=== PATIENT | male | born 1955 | race Caucasian/White ===

== ENCOUNTER 2022-12-17 16:24 | Emergency (ER) | payer MEDICARE, OTHER, SELFPAY ==
[2022-12-17 16:29] VITALS: BP 161/91; PULSE 79; RESP 20; TEMP 36.6; O2SAT 98; BMI 28.3
--- NOTE | 2022-12-17 16:31 | ED_ITS ---
HPI - General Adult General Chief complaint: Skin/Abscess/Foreign Body Stated complaint: LACERATION, UPPER EXTREMITY Time Seen by Provider: 12/17/22 16:31 History of Present Illness HPI narrative: Patient presents to emergency department complaining of right index finger laceration. 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 He states he cannot get it stopped bleeding. Patient does not take any blood thinners. Last tetanus shot he thinks it was 7 years ago. Denies any numbness, weakness. Complains of pain with range of motion. Related Data Previous Rx's Medication Instructions Recorded cephalexin 500 mg capsule 500 mg PO TID 7 days #21 caps 12/17/22 Allergies Allergy/AdvReac Type Severity Reaction Status Date / Time Penicillins Allergy Intermediate Verified 12/17/22 16:33 vancomycin Allergy Intermediate Verified 12/17/22 16:33 TYCOSYN Allergy Intermediate Uncoded 12/17/22 16:33 Review of Systems ROS Status of ROS 10 or more systems reviewed and unremarkable except as noted in history and below Exam Narrative Exam Narrative: Nurses notes and vital signs reviewed and patient is not hypoxic. General: Nontoxic, Well-appearing and in no apparent distress. Skin: Warm, dry, no pallor noted. No Rash Head: Normocephalic, atraumatic. Eye: Pupils are equal,No scleral icterus. Ears, Nose, Mouth, and Throat: Oral mucosa is moist Cardiovascular: Regular Rate and Rhythm without murmur, gallop or rub. Respiratory: No accessory muscle use or respiratory distress. Lungs are clear to auscultation, no wheezing, rales or rhonchi Musculoskeletal: Right And next finger dorsal PIP 1.5 cm linear laceration without any pulsatile bleeding. Bony tenderness to palpation. Patient is able to flex and extend abduct and abduct and extend finger without any striction range of motion. Apley refill is brisk. Patient is able to oppose all digits with thumb. Normal sensation to the thumb, middle finger, index and pinky. no calf or popliteal tenderness, no lower extremity edema/swelling Neurological: A&O x4. No cranial nerve dysfunction observed. Moves all extremities. Psychiatric: Cooperative and interactive. Normal mood and affect. Constitutional Vital Signs, click to edit/add: Last Vital Signs Temp 98 F 12/17/22 16:29 Pulse 79 08/28/23 16:29 Resp 20 12/17/22 16:29 BP 161/91 H 12/17/22 16:29 Pulse Ox 98 12/17/22 16:29 O2 Del Method Room Air 12/17/22 16:29 Course Vital Signs Vital signs: Vital Signs Temperature 98 F 12/17/22 16:29 Pulse Rate 79 12/17/22 16:29 Respiratory Rate 20 12/17/22 16:29 Blood Pressure 161/91 H 12/17/22 16:29 Pulse Oximetry 98 12/17/22 16:29 Oxygen Delivery Method Room Air 12/17/22 16:29 Temperature 98 F 12/17/22 16:29 Pulse Rate 79 12/17/22 16:29 Respiratory Rate 20 12/17/22 16:29 Blood Pressure 161/91 H 12/17/22 16:29 Pulse Oximetry 98 12/17/22 16:29 Oxygen Delivery Method Room Air 12/17/22 16:29 Medical Decision Making MDM Narrative Medical decision making narrative: Laceration repair. The patient was identified by me. Procedure risks and benefits were discussed with patient and/or family. Area was prepped and draped in a sterile fashion. 1ml lidocaine 1% without epinephrine were injected. wound was inspected in full range of motion. Adequate anesthesia was obtained. 3 sutures, interrupted, nylon 4.0 were used to obtain adequate closure. The edges were well approximated. Antibiotic ointment was applied. Nonstick dressing was applied with pressure gauze and Shawn wrap. Care instructions provided. There was some dirt noted the wound was irrigated prior to closing no foreign body was noted. The patient will be placed on Keflex. Patient thinks his last tetanus was 7 years ago and he does not want to have his tetanus shot updated currently. Sutures out in 10-12 days. xray does not show any foreign body or fracture. No additional indication for emergent studies at this time. I answered all ques tions. Discussed discharge instructions including standard anticipatory guidance and what should prompt a return to the emergency department, including if they get worse are not getting better or develops any new or concerning symptoms. I've given them specific time frame in which to follow-up, and who to follow-up with. The patient demonstrates understanding. Patient is nontoxic and stable for discharge with outpatient follow-up. This note was created with the assistance of a speech recognition program. Although the intention is to generate documents that actually reflects the content of the visit, no guarantees can be provided that every mistake has been identified and corrected by editing. Discharge Plan Discharge Chief Complaint: Skin/Abscess/Foreign Body Clinical Impression: Laceration Patient Disposition: Home, Self-Care Time of Disposition Decision: 17:44 Condition: Good Mode of Transportation: Private Vehicle Prescriptions / Home Meds: New cephalexin 500 mg capsule 500 mg PO TID 7 Days Qty: 21 0RF Instructions: Finger Laceration (ED) Additional Instructions: Sutures out in 10-12 days Stand Alone Forms: Portal Instructions Referrals: ANASTASIA BURRIS [Primary Care Provider] - 1 week
--- NOTE | 2022-12-17 16:36 | XR_ITS ---
The [place] [id number] Patient Name: YOLI ANTUNEZ MRN: [id number] date: 1955 Sex: M Assigned Patient Location: ER Current Patient Location: ED.MAIN Accession/Order Number: [id number] Exam Date: 12/17/2022 16:45 Report Date: 12/17/2022 17:38 At the request of: BENITA JEFFREY Procedure: XR finger RT min 2V EXAM: XR finger RT min 2V HISTORY: INDEX FINGER COMPARISON: None. TECHNIQUE: 3 views of the right index finger are performed. FINDINGS: There is no acute fracture. The bony structures are intact. There are degenerative changes at the proximal and distal interphalangeal joints. No radiopaque soft tissue foreign body is seen. XR/XR finger RT min 2V IMPRESSION: Degenerative changes. No fracture or radiopaque soft tissue foreign body. Electronically authenticated by: JAYLYN GAMBOA Date: 12/17/2022 17:38
[2022-12-17] MEDS: BACITRACIN 0.9 GM PACKET 1 PACKET TOPICAL (18:22)
[2022-12-17] MEDS: LIDOCAINE HCL/PF 5 ML, SODIUM BICARBONATE 0.5 MEQ INJ (18:23)
== END 2022-12-17 18:20 | disposition home or self-care (01) ==
PROVIDERS: Emergency Provider Emergency Medicine; PCP Family Medicine
DX: S61.210A Laceration without foreign body of right index finger without damage to nail, initial encounter (principal); W29.8XXA Contact with other powered hand tools and household machinery, initial encounter
CPT/HCPCS: 12001; 73140; 99283

== ENCOUNTER 2023-01-16 12:06 | Emergency (ER) | payer MEDICARE, OTHER, SELFPAY ==
[2023-01-16] VITALS (40 sets, daily range): BP systolic 109–146; BP diastolic 70–81; PULSE 55–72; RESP 7–23; TEMP 36.5; O2SAT 97–98; BMI 28.8
[2023-01-16 12:24] LABS: Glucometer 131 mg/dL (74-106)
--- NOTE | 2023-01-16 12:28 | XR_ITS ---
The [address] [address] Patient Name: YOLI ANTUNEZ MRN: [id number] date: 1955 Sex: M Assigned Patient Location: ER Current Patient Location: ED.MAIN Accession/Order Number: [id number] Exam Date: 01/16/2023 12:45 Report Date: 01/16/2023 13:13 At the request of: CONCHA PHILLIPS Procedure: XR chest 1V EXAM: XR chest 1V HISTORY: poss CVA COMPARISON: None. TECHNIQUE: AP view of the chest. FINDINGS: The cardiomediastinal silhouette is normal. The lungs are clear. There is no pneumothorax. No pleural effusion is noted. The osseous structures are intact. XR/XR chest 1V IMPRESSION: No acute cardiopulmonary process. Electronically authenticated by: MAYELIN ALEGRIA Date: 01/16/2023 13:13
--- NOTE | 2023-01-16 12:28 | ECG_ITS ---
The [facility] Test Date: 2023-01-16 Pat Name: YOLI ANTUNEZ Department: Room: - Gender: Male [employer]: : 1955 Requested By: Order Number: [id number] Reading MD: LARA OJEDA Measurements Intervals Lykens Rate: 60 P: 63 CO: 204 QRS: 45 QRSD: 80 T: 78 QT: 416 QTc: 420 Interpretive Statements 1100 Sinus bradycardia 1102 Sinus arrhythmia 9110 normal ECG No previous ECG available for comparison Electronically Signed On 01-17-2023 7:16:20 EDT by LARA OJEDA
--- NOTE | 2023-01-16 12:29 | CT_ITS ---
The [address] [address] Patient Name: YOLI ANTUNEZ MRN: [id number] date: 1955 Sex: M Assigned Patient Location: ER Current Patient Location: ED.MAIN Accession/Order Number: [id number] Exam Date: 01/16/2023 12:40 Report Date: 01/16/2023 13:05 At the request of: CONCHA PHILLIPS Procedure: CT stroke head/brain wo con EXAM: CT stroke head/brain wo con; [id number] REASON FOR EXAM: numbness COMPARISON: CT head 06/04/2022 TECHNIQUE: Axial CT images of the head obtained without contrast. Multiplanar reformats generated at the scanner. Dose reduction technique used: Automated exposure control and/or adjustment of the mA and/or kV according to patient size and/or use of iterative reconstruction technique. FINDINGS: Parenchyma: -Mild generalized cerebral volume loss. -No midline shift or mass effect. Basilar cisterns are patent. -No acute intracranial hemorrhage. -No loss of cortical lind-white differentiation to indicate acute cortical infarct. -Mild multifocal and bilateral periventricular white matter predominant hypoattenuation, nonspecific though commonly seen in the setting of chronic microvascular ischemic disease. Extra-axial spaces: No extra-axial fluid collection or hemorrhage. Ventricles: Normal in size and symmetric. Paranasal sinuses: Partial opacification of the left posterior ethmoid air cells. Mastoid air cells: Visualized mastoids are clear. Orbits: No acute abnormality. Osseous: No acute findings. Soft tissues: No acute abnormality. CT/CT stroke head/brain wo con IMPRESSION: No acute intracranial abnormality demonstrated. Results discussed with Concha Phillips by Dr. Lynn at 01/16/2023 10:03 AM PDT. Electronically authenticated by: ANDREA LYNN Date: 01/16/2023 13:05
[2023-01-16 12:42] LABS: Basophils Absolute Auto 0.1 10^3/uL (0.0-0.1); Basophils Percent Auto 0.7 % (0.2-2.0); Eosinophils Absolute Auto 0.2 10^3/uL (0.0-0.7); Eosinophils Percent Auto 2.8 % (0.9-7.0); Hematocrit 40.2 % (42.0-54.0); Hemoglobin 12.9 g/dL (14.0-18.0); Immature Granulocytes Abs Auto 0.05 10^3/uL (0.00-0.03); Immature Granulocytes Pct Auto 0.7 % (0.0-0.5); Lymphocytes Absolute Auto 1.9 10^3/uL (1.2-3.8); Lymphocytes Percent Auto 24.7 % (20.5-60.0); Mean Corpuscular HGB Conc 32.1 g/dL (29.9-35.2); Mean Corpuscular Hemoglobin 27.6 pg (25.9-34.0); Mean Corpuscular Volume 85.9 fL (80.0-94.0); Mean Platelet Volume 10.4 fL (9.5-13.5); Monocytes Absolute Auto 0.6 10^3/uL (0.3-0.8); Monocytes Percent Auto 7.9 % (1.7-12.0); Neutrophils Absolute Auto 4.8 10^3/uL (1.4-6.5); Neutrophils Percent Auto 63.2 % (43.0-75.0); Platelet Count 232 10^3/uL (150-450); Red Blood Count 4.68 10^6/uL (4.70-6.10); Red Cell Distribution Width 15.2 % (11.0-15.0); White Blood Count 7.6 10^3/uL (4.0-11.0)
[2023-01-16 12:54] LABS: BUN Creatinine Ratio 26.9; Calcium 7.3 mg/dL (8.5-10.1); Chloride 105 mmol/L (98-107); Estimated GFR (African America >60 (>=60); Estimated GFR (Non-African Ame 55 (>=60); Glucose 141 mg/dL (74-106); Sodium 139 mmol/L (136-145)
--- NOTE | 2023-01-16 13:31 | CT_ITS ---
The [address] [address] Patient Name: YOLI ANTUNEZ MRN: [id number] date: 1955 Sex: M Assigned Patient Location: ER Current Patient Location: Accession/Order Number: [id number] Exam Date: 01/16/2023 13:45 Report Date: 01/16/2023 14:36 At the request of: CONCHA PHILLIPS Procedure: CT angio neck EXAM: CT angio head, CT angio neck HISTORY: poss cva, left face numb COMPARISON: 01/16/2023 TECHNIQUE: Axial CT images were obtained of the head and neck in the arterial phase. Multiplanar reconstructions were performed. MIP reformatted images were performed. Carotid stenosis is reported according to NASCET criteria. CTA HEAD FINDINGS: Internal carotid arteries: No acute thrombosis or dissection. Atherosclerotic calcifications present at the carotid siphons with mild multifocal stenosis. Vertebrobasilar arteries: No acute thrombosis or dissection. Intracranial arteries: No acute thrombosis, dissection, aneurysm or vascular malformation Venous sinuses: Unremarkable. Brain: No acute findings. Sinuses: Clear. CTA NECK FINDINGS: Aorta and proximal great vessels: No acute thrombosis or dissection. Common carotid arteries: No acute thrombosis or dissection. Mild atherosclerotic calcification at the carotid bulbs without significant stenosis. Internal carotid arteries: No acute thrombosis or dissection. Vertebral arteries: No acute thrombosis or dissection. Venous structures: Unremarkable. Bones: Postoperative changes of an anterior cervical fusion at C3-C4. Mild multilevel degenerative changes are present in the visualized spine. Soft tissues: Prior thyroidectomy. CT/CT angio neck IMPRESSION: 1. No acute vascular abnormality of the head and neck. Electronically authenticated by: ARY AMRTINEZ Date: 01/16/2023 14:36
--- NOTE | 2023-01-16 13:31 | CT_ITS ---
The [address] [address] Patient Name: YOLI ANTUNEZ MRN: [id number] date: 1955 Sex: M Assigned Patient Location: ER Current Patient Location: Accession/Order Number: [id number] Exam Date: 01/16/2023 13:45 Report Date: 01/16/2023 14:36 At the request of: CONCHA PHILLIPS Procedure: CT angio head EXAM: CT angio head, CT angio neck HISTORY: poss cva, left face numb COMPARISON: 01/16/2023 TECHNIQUE: Axial CT images were obtained of the head and neck in the arterial phase. Multiplanar reconstructions were performed. MIP reformatted images were performed. Carotid stenosis is reported according to NASCET criteria. CTA HEAD FINDINGS: Internal carotid arteries: No acute thrombosis or dissection. Atherosclerotic calcifications present at the carotid siphons with mild multifocal stenosis. Vertebrobasilar arteries: No acute thrombosis or dissection. Intracranial arteries: No acute thrombosis, dissection, aneurysm or vascular malformation Venous sinuses: Unremarkable. Brain: No acute findings. Sinuses: Clear. CTA NECK FINDINGS: Aorta and proximal great vessels: No acute thrombosis or dissection. Common carotid arteries: No acute thrombosis or dissection. Mild atherosclerotic calcification at the carotid bulbs without significant stenosis. Internal carotid arteries: No acute thrombosis or dissection. Vertebral arteries: No acute thrombosis or dissection. Venous structures: Unremarkable. Bones: Postoperative changes of an anterior cervical fusion at C3-C4. Mild multilevel degenerative changes are present in the visualized spine. Soft tissues: Prior thyroidectomy. CT/CT angio head IMPRESSION: 1. No acute vascular abnormality of the head and neck. Electronically authenticated by: ARY MARTINEZ Date: 01/16/2023 14:36
--- NOTE | 2023-01-16 16:51 | ED.NEUROSD1 ---
HPI - Neuro Symptoms/Deficit General Chief Complaint: Neuro Symptoms/Deficit Stated Complaint: CVA SYMPTOMS- LET ARM NUMBNESS/WEAKNESS Time Seen by Provider: 01/16/23 12:08 Source: family Mode of arrival: walk-in History of Present Illness HPI Narrative: 67-year-old male presents because of numbness on the left side of his face. This started a few hours ago and was followed by inability to speak. His initially gives all the history. She reports that he has this aphasia two or three times a month every month and lasts for 1-3 hours. He had a headache but seems to have gone away. He did not have any weakness in his extremities and there was no injury or unusual activity. He has an appointment with a neurologist in a week because of headaches. The inability to speak is not new for him. Related Data Home Medications Medication Instructions Recorded Confirmed benazepril 10 mg tablet 10 mg PO DAILY 01/16/23 01/16/23 calcium carbonate 500 mg calcium 500 mg PO BID 01/16/23 01/16/23 (1,250 mg) tablet diltiazem HCl 180 mg 360 mg PO QAM 01/16/23 01/16/23 capsule,extended release 24 hr levothyroxine 150 mcg tablet 150 mcg PO .COMPLEX 01/16/23 01/16/23 levothyroxine 175 mcg tablet 175 mcg PO .COMPLEX 01/16/23 01/16/23 pramipexole 1 mg tablet 2 mg PO QAM 01/16/23 01/16/23 Allergies Allergy/AdvReac Type Severity Reaction Status Date / Time Penicillins Allergy Intermediate Verified 12/17/22 16:33 vancomycin Allergy Intermediate Verified 12/17/22 16:33 TYCOSYN Allergy Intermediate Uncoded 12/17/22 16:33 Review of Systems ROS Narrative A ten point review of systems is negative except as noted above. Neurological Reports: headache Exam Narrative Exam Narrative: Nurses note and vital signs reviewed and patient is not hypoxic. General: The patient appears well and in no apparent distress. Patient is resting comfortably on cart. Skin: Warm, dry, no pallor noted. There is no rash noted. Head: Normocephalic, atraumatic Eye: Normal conjunctiva, no drainage, EOMI. PERRL Ears, Nose, Mouth, and Throat: oral mucosa is moist. Nares patent. Cardiovascular: Regular Rate and Rhythm Respiratory: Patient is in no distress, no accessory muscle use, lungs are clear to auscultation, no wheezing, rales or rhonchi Back: non-tender GI: no tenderness to palpation, no masses appreciated. No rebound, guarding, or rigidity noted. Musculoskeletal: The patient has no evidence of calf tenderness, no pitting edema, symmetrical pulses noted bilaterally Neurological: initially he could not speak. Later in the course of his care he had speech back to normal. Initially upper and lower extremity strength five out five and symmetric. Cranial nerves II through XII are intact except he has subjective numbness on the left side of his face. Motor strength is intact symmetrically in all muscle groups both on his face and upper and lower extremities. Psychiatric: Cooperative Constitutional Vital Signs, click to edit/add: Last Vital Signs Temp 97.7 F 01/16/23 12:10 Pulse 63 01/16/23 16:30 Resp 17 01/16/23 16:20 BP 114/70 01/16/23 16:30 Pulse Ox 97 01/16/23 12:26 O2 Del Method Room Air 01/16/23 12:26 Course Vital Signs Vital signs: Vital Signs Temperature 97.7 F 01/16/23 12:10 Pulse Rate 65 01/16/23 12:10 Respiratory Rate 16 01/16/23 12:10 Blood Pressure 146/78 H 01/16/23 12:10 Pulse Oximetry 97 01/16/23 12:10 Oxygen Delivery Method Room Air 01/16/23 12:10 Temperature 97.7 F 01/16/23 12:10 Pulse Rate 63 01/16/23 16:30 Respiratory Rate 17 01/16/23 16:20 Blood Pressure 114/70 01/16/23 16:30 Pulse Oximetry 97 01/16/23 12:26 Oxygen Delivery Method Room Air 01/16/23 12:26 MDM - Neuro Symptoms/Deficit MDM Narrative Medical decision making narrative: I have very low clinical suspicion for stroke or transient ischemic attack. His extensive workup here is negative including CAT scan of his head and CTA head and neck. His symptoms have resolved completely including the speech and the numbness. He is scheduled to see a neurologist in a week. He seen a neurologist about this speech difficulty in the past. at this point I do not suspect transient ischemic attack or stroke and he doesn't need to be admitted to the hospital. Treatment diagnosis and follow-up were discussed with the patient and his . Differential Diagnosis Differential diagnosis: Likely subarachnoid hemorrhage, cerebrovascular accident, transient cerebral ischemia and other (transient aphasia, anxiety) Lab Data Attestation: I reviewed the patient's lab results. Labs: Lab Results 01/16/23 01/16/23 Range/Units 12:17 12:22 WBC 7.6 (4.0-11.0) 10^3/uL RBC 4.68 L (4.70-6.10) 10^6/uL Hgb 12.9 L (14.0-18.0) g/dL Hct 40.2 L (42.0-54.0) % MCV 85.9 (80.0-94.0) fL MCH 27.6 (25.9-34.0) pg MCHC 32.1 (29.9-35.2) g/dL RDW 15.2 H (11.0-15.0) % Plt Count 232 (150-450) 10^3/uL MPV 10.4 (9.5-13.5) fL Neut % (Auto) 63.2 (43.0-75.0) % Lymph % (Auto) 24.7 (20.5-60.0) % [place] % (Auto) 7.9 (1.7-12.0) % Eos % (Auto) 2.8 (0.9-7.0) % Baso % (Auto) 0.7 (0.2-2.0) % Neut # (Auto) 4.8 (1.4-6.5) 10^3/uL Lymph # (Auto) 1.9 (1.2-3.8) 10^3/uL [place] # (Auto) 0.6 (0.3-0.8) 10^3/uL Eos # (Auto) 0.2 (0.0-0.7) 10^3/uL Baso # (Auto) 0.1 (0.0-0.1) 10^3/uL Abs Immat Gran (auto) 0.05 H (0.00-0.03) 10^3/uL Imm/Tot Granulo (auto) 0.7 H (0.0-0.5) % Sodium 139 (136-145) mmol/L Potassium 4.0 (3.5-5.1) mmol/L Chloride 105 (98-107) mmol/L Carbon Dioxide 24.0 (21.0-32.0) mmol/L Anion Gap 14.0 BUN 35.0 H (7.0-18.0) mg/dL Creatinine 1.30 (0.70-1.30) mg/dL Est GFR ( Amer) >60 (>=60) Est GFR (Non-Af Amer) 55 L (>=60) BUN/Creatinine Ratio 26.9 Glucose 141 H (74-106) mg/dL Calcium 7.3 L (8.5-10.1) mg/dL POC Glucose 131 H (74-106) mg/dL Imaging Data CT brain, CTA head and neck: Radiologist's impression: Procedure: CT stroke head/brain wo con EXAM: CT stroke head/brain wo con; [id number] REASON FOR EXAM: numbness COMPARISON: CT head 06/04/2022 TECHNIQUE: Axial CT images of the head obtained without contrast. Multiplanar reformats generated at the scanner. Dose reduction technique used: Automated exposure control and/or adjustment of the mA and/or kV according to patient size and/or use of iterative reconstruction technique. FINDINGS: Parenchyma: -Mild generalized cerebral volume loss. -No midline shift or mass effect. Basilar cisterns are patent. -No acute intracranial hemorrhage. -No loss of cortical lind-white differentiation to indicate acute cortical infarct. -Mild multifocal and bilateral periventricular white matter predominant hypoattenuation, nonspecific though commonly seen in the setting of chronic microvascular ischemic disease. Extra-axial spaces: No extra-axial fluid collection or hemorrhage. Ventricles: Normal in size and symmetric. Paranasal sinuses: Partial opacification of the left posterior ethmoid air cells. Mastoid air cells: Visualized mastoids are clear. Orbits: No acute abnormality. Osseous: No acute findings. Soft tissues: No acute abnormality. IMPRESSION: No acute intracranial abnormality demonstrated. Results discussed with Satinder Willard by Dr. Lynn at 01/16/2023 10:03 AM PDT. Electronically authenticated by: ANDREA LYNN Date: 01/16/2023 13:05 Procedure: CT angio neck EXAM: CT angio head, CT angio neck HISTORY: poss cva, left face numb COMPARISON: 01/16/2023 TECHNIQUE: Axial CT images were obtained of the head and neck in the arterial phase. Multiplanar reconstructions were performed. MIP reformatted images were performed. Carotid stenosis is reported according to NASCET criteria. CTA HEAD FINDINGS: Internal carotid arteries: No acute thrombosis or dissection. Atherosclerotic calcifications present at the carotid siphons with mild multifocal stenosis. Vertebrobasilar arteries: No acute thrombosis or dissection. Intracranial arteries: No acute thrombosis, dissection, aneurysm or vascular malformation Venous sinuses: Unremarkable. Brain: No acute findings. Sinuses: Clear. CTA NECK FINDINGS: Aorta and proximal great vessels: No acute thrombosis or dissection. Common carotid arteries: No acute thrombosis or dissection. Mild atherosclerotic calcification at the carotid bulbs without significant stenosis. Internal carotid arteries: No acute thrombosis or dissection. Vertebral arteries: No acute thrombosis or dissection. Venous structures: Unremarkable. Bones: Postoperative changes of an anterior cervical fusion at C3-C4. Mild multilevel degenerative changes are present in the visualized spine. Soft tissues: Prior thyroidectomy. IMPRESSION: 1. No acute vascular abnormality of the head and neck. Electronically authenticated by: [employer] Date: 01/16/2023 14:36 Procedure: CT angio head EXAM: CT angio head, CT angio neck HISTORY: poss cva, left face numb COMPARISON: 01/16/2023 TECHNIQUE: Axial CT images were obtained of the head and neck in the arterial phase. Multiplanar reconstructions were performed. MIP reformatted images were performed. Carotid stenosis is reported according to NASCET criteria. CTA HEAD FINDINGS: Internal carotid arteries: No acute thrombosis or dissection. Atherosclerotic calcifications present at the carotid siphons with mild multifocal stenosis. Vertebrobasilar arteries: No acute thrombosis or dissection. Intracranial arteries: No acute thrombosis, dissection, aneurysm or vascular malformation Venous sinuses: Unremarkable. Brain: No acute findings. Sinuses: Clear. CTA NECK FINDINGS: Aorta and proximal great vessels: No acute thrombosis or dissection. Common carotid arteries: No acute thrombosis or dissection. Mild atherosclerotic calcification at the carotid bulbs without significant stenosis. Internal carotid arteries: No acute thrombosis or dissection. Vertebral arteries: No acute thrombosis or dissection. Venous structures: Unremarkable. Bones: Postoperative changes of an anterior cervical fusion at C3-C4. Mild multilevel degenerative changes are present in the visualized spine. Soft tissues: Prior thyroidectomy. IMPRESSION: 1. No acute vascular abnormality of the head and neck. Electronically authenticated by: [employer] Date: 01/16/2023 ECG Data Attestation: I personally reviewed and interpreted this ECG as follows: (EKG on my interpretation shows normal sinus rhythm with a rate of 62.) Discharge Plan Discharge Chief Complaint: Neuro Symptoms/Deficit Clinical Impression: Paresthesia Patient Disposition: Home, Self-Care Time of Disposition Decision: 16:50 Condition: Good Mode of Transportation: Private Vehicle Prescriptions / Home Meds: No Action benazepril 10 mg tablet 10 mg PO DAILY calcium carbonate 500 mg calcium (1,250 mg) tablet 500 mg PO BID diltiazem HCl 180 mg capsule,extended release 24hr 360 mg PO QAM levothyroxine 150 mcg tablet 150 mcg PO .COMPLEX Rx Instructions: 150 mcg orally 4 times a wk; Mon, Wed, Fri, Sun; levothyroxine 175 mcg tablet 175 mcg PO .COMPLEX Rx Instructions: 175 mcg orally 3 times a week; Tue, Th, Sat; pramipexole 1 mg tablet 2 mg PO QAM Instructions: Paresthesia (ED) Additional Instructions: see your neurologist at the scheduled appointment Stand Alone Forms: Portal Instructions Referrals: ANASTASIA BURRIS [Primary Care Provider] - 1 week
== END 2023-01-16 17:06 | disposition home or self-care (01) ==
PROVIDERS: Emergency Provider Emergency Medicine; PCP Family Medicine
DX: R20.2 Paresthesia of skin (principal); Z79.899 Other long term (current) drug therapy; E89.0 Postprocedural hypothyroidism; Z79.890 Hormone replacement therapy
CPT/HCPCS: 36415; 70450; 70496; 70498; 71045; 80048; 85025; 93005; 99285; Q9967

== ENCOUNTER 2023-01-24 06:23 | Outpatient (OUT) | payer MEDICARE, OTHER, SELFPAY ==
[2023-01-24 07:39] LABS: Estimated Average Glucose 123 mg/dL; Glycohemoglobin A1C 5.9 % (4.5-6.2)
[2023-01-25 16:09] LABS: Immunoglobulin A, Qn, Serum 258 mg/dL (61-437); Immunoglobulin G, Qn, Serum 1194 mg/dL (603-1613); Immunoglobulin M, Qn, Serum 95 mg/dL (20-172)
[2023-01-25 17:09] LABS: Free Kappa Lt Chains,S 33.7 mg/L (3.3-19.4); Free Lambda Lt Chains,S 18.7 mg/L (5.7-26.3)
[2023-01-28 05:06] LABS: Vitamin B6, Plasma 9.1 ug/L (3.4-65.2)
[2023-01-28 19:07] LABS: Vitamin B1 (Thiamine), Blood 106.7 nmol/L (66.5-200.0)
[2023-02-02 08:13] LABS: Copper Level 75 ug/dL (69-132)
== END 2023-01-24 06:24 | disposition home or self-care (01) ==
LOC: LAB 06:25
PROVIDERS: PCP Family Medicine
DX: R20.9 Unspecified disturbances of skin sensation (principal); R42 Dizziness and giddiness; R73.09 Other abnormal glucose
CPT/HCPCS: 36415; 82525; 82607; 83036; 84207; 84425

== ENCOUNTER 2023-03-27 10:52 | Outpatient (OUT) | payer MEDICARE, OTHER, SELFPAY ==
[2023-03-27 12:11] LABS: Erythrocyte Sedimentation Rate 24 mm/hr (<=20)
[2023-03-27 13:20] LABS: C. Difficile PCR NEGATIVE (NEGATIVE)
[2023-03-28 05:07] LABS: HIV Ab/p24 Ag Screen Non Reactive (Non Reactive)
[2023-03-28 08:47] LABS: C Reactive Protein <0.50 mg/dL (<=0.50)
[2023-03-28 16:11] LABS: Deamidated Gliadin Abs, IgA 4 units (0-19); Deamidated Gliadin Abs, IgG 2 units (0-19); Endomysial Antibody IgA Negative (Negative); Immunoglobulin A, Qn, Serum 259 mg/dL (61-437); t-Transglutaminase (tTG) IgA <2 U/mL (0-3); t-Transglutaminase (tTG) IgG 3 U/mL (0-5)
[2023-04-01 00:09] LABS: Calprotectin, Fecal 28 ug/g (0-120)
[2023-04-02 15:08] LABS: Pancreatic Elastase, Fecal 115 (>200)
[2023-04-03 16:11] LABS: Ova + Parasite Exam Final report (.)
== END 2023-03-27 10:53 | disposition home or self-care (01) ==
LOC: LAB 10:54
PROVIDERS: PCP Family Medicine
DX: R19.7 Diarrhea, unspecified (principal)
CPT/HCPCS: 36415; 82656; 82784; 83993; 84443; 85652; 86140; 86231; 86258; 86364; 87177; 87209; 87389; 87493

== ENCOUNTER 2023-05-17 09:40 | Emergency (ER) | payer MEDICARE, OTHER, SELFPAY ==
[2023-05-17] VITALS (26 sets, daily range): BP systolic 110–147; BP diastolic 70–85; PULSE 56–79; RESP 13–29; TEMP 36.4; O2SAT 96–100; BMI 27.7
--- NOTE | 2023-05-17 09:55 | ED.CHESTPAI1 ---
HPI - Chest Pain General Chief Complaint: Chest Pain Stated Complaint: CHEST PAIN/ DIZZINESS Time Seen by Provider: 05/17/23 09:41 Source: patient Mode of arrival: walk-in Limitations: no limitations History of Present Illness HPI narrative: 67-year-old male presents for chest pain. It's been intermittent for the last few days. He points to the middle part of his chest. It eased off now. He takes an aspirin every day and has already taken it today. When he gets the pain it feels like a pressure and he's felt some premature beats as well. He has a history of atrial fibrillation but doesn't feel like he is in atrial fibrillation now. No cough or shortness of breath. Related Data Home Medications Medication Instructions Recorded Confirmed benazepril 10 mg tablet 10 mg PO DAILY 01/16/23 01/16/23 calcium carbonate 500 mg calcium 500 mg PO BID 01/16/23 05/17/23 (1,250 mg) tablet diltiazem HCl 180 mg 360 mg PO QAM 01/16/23 05/17/23 capsule,extended release 24 hr levothyroxine 150 mcg tablet 150 mcg PO .COMPLEX 01/16/23 01/16/23 levothyroxine 175 mcg tablet 175 mcg PO DAILY 01/16/23 05/17/23 pramipexole 1 mg tablet 2 mg PO QAM 01/16/23 01/16/23 aspirin 81 mg tablet,delayed 81 mg PO DAILY 05/17/23 05/17/23 release (Adult Low Dose Aspirin) budesonide 3 mg 9 mg PO DAILY 05/17/23 05/17/23 capsule,delayed,extended release calcitriol 0.25 mcg capsule 0.25 mcg PO DAILY 05/17/23 05/17/23 ergocalciferol (vitamin D2) 1,250 50,000 unit PO QWEEK 05/17/23 05/17/23 mcg (50,000 unit) capsule topiramate 25 mg tablet 25 mg PO BID 05/17/23 05/17/23 Allergies Allergy/AdvReac Type Severity Reaction Status Date / Time Penicillins Allergy Intermediate Verified 12/17/22 16:33 vancomycin Allergy Intermediate Verified 12/17/22 16:33 TYCOSYN Allergy Intermediate Uncoded 12/17/22 16:33 Review of Systems ROS Narrative A ten point review of systems is negative except as noted above. PFSH PFSH Medical History (Updated 05/17/23 @ 13:29 by Satinder Willard MD) Chronic kidney disease ?N18.9 - Chronic kidney disease, unspecified (ICD-10) Social History Smoking status: Former smoker Exam Narrative Exam Narrative: Nurses note and vital signs reviewed and patient is not hypoxic. General: The patient appears well and in no apparent distress. Patient is resting comfortably on cart. Skin: Warm, dry, no pallor noted. There is no rash noted. Head: Normocephalic, atraumatic Eye: Normal conjunctiva, no drainage Ears, Nose, Mouth, and Throat: oral mucosa is moist. Nares patent. Cardiovascular: Regular Rate and Rhythm Respiratory: Patient is in no distress, no accessory muscle use, lungs are clear to auscultation, no wheezing, rales or rhonchi Back: non-tender, GI: soft and nontender Musculoskeletal: The patient has no evidence of calf tenderness, no pitting edema, symmetrical pulses noted bilaterally Neurological: A&O, normal speech Psychiatric: Cooperative Constitutional Vital Signs, click to edit/add: Last Vital Signs Temp 97.6 F 05/17/23 09:44 Pulse 63 05/17/23 13:10 Resp 15 05/17/23 13:10 BP 110/70 05/17/23 13:00 Pulse Ox 99 05/17/23 13:10 O2 Del Method Room Air 05/17/23 10:00 Course Vital Signs Vital signs: Vital Signs Temperature 97.6 F 05/17/23 09:44 Pulse Rate 65 05/17/23 09:44 Respiratory Rate 20 05/17/23 09:44 Blood Pressure 147/85 H 05/17/23 09:44 Pulse Oximetry 99 05/17/23 09:44 Oxygen Delivery Method Room Air 05/17/23 09:44 Temperature 97.6 F 05/17/23 09:44 Pulse Rate 63 05/17/23 13:10 Respiratory Rate 15 05/17/23 13:10 Blood Pressure 110/70 05/17/23 13:00 Pulse Oximetry 99 05/17/23 13:10 Oxygen Delivery Method Room Air 05/17/23 10:00 MDM - Chest Pain MDM Narrative Medical decision making narrative: Two troponins as well as the rest of his workup is negative. Consideration was made for admission. I've spoken to information assurance engineer, Dr. Palmer, who recommends prompt outpatient follow-up and he'll arrange a stress test to be done as an outpatient. This was discussed with the patient and he is comfortable with that plan. He'll return for new or worsening symptoms. Treatment diagnosis and follow-up were discussed with the patient thoroughly. Differential Diagnosis Differential diagnosis: Likely pneumothorax, unstable angina pectoris, atypical chest pain, st elevation myocardial infarction, costochondritis and chest pain Lab Data Attestation: I reviewed the patient's lab results. Labs: Lab Results 05/17/23 05/17/23 Range/Units 09:54 10:56 WBC 10.8 (4.0-11.0) 10^3/uL RBC 4.97 (4.70-6.10) 10^6/uL Hgb 13.7 L (14.0-18.0) g/dL Hct 43.0 (42.0-54.0) % MCV 86.5 (80.0-94.0) fL MCH 27.6 (25.9-34.0) pg MCHC 31.9 (29.9-35.2) g/dL RDW 14.3 (11.0-15.0) % Plt Count 239 (150-450) 10^3/uL MPV 10.1 (9.5-13.5) fL Neut % (Auto) 72.5 (43.0-75.0) % Lymph % (Auto) 16.9 L (20.5-60.0) % [place] % (Auto) 7.9 (1.7-12.0) % Eos % (Auto) 1.4 (0.9-7.0) % Baso % (Auto) 0.5 (0.2-2.0) % Neut # (Auto) 7.8 H (1.4-6.5) 10^3/uL Lymph # (Auto) 1.8 (1.2-3.8) 10^3/uL [place] # (Auto) 0.9 H (0.3-0.8) 10^3/uL Eos # (Auto) 0.2 (0.0-0.7) 10^3/uL Baso # (Auto) 0.1 (0.0-0.1) 10^3/uL Abs Immat Gran (auto) 0.09 H (0.00-0.03) 10^3/uL Imm/Tot Granulo (auto) 0.8 H (0.0-0.5) % Sodium 143 (136-145) mmol/L Potassium 3.7 (3.5-5.1) mmol/L Chloride 108 H (98-107) mmol/L Carbon Dioxide 23.8 (21.0-32.0) mmol/L Anion Gap 14.9 BUN 31.0 H (7.0-18.0) mg/dL Creatinine 1.50 H (0.70-1.30) mg/dL Est GFR ( Amer) 56 L (>=60) Est GFR (Non-Af Amer) 46 L (>=60) BUN/Creatinine Ratio 20.7 Glucose 84 (74-106) mg/dL Calcium 7.7 L (8.5-10.1) mg/dL Troponin I High Sens 5.5 <4.0 L (4.0-76.1) pg/mL Imaging Data Chest x-ray: Radiologist's impression: ITS Impressions Chest X-Ray 05/17/23 09:57 IMPRESSION: 1. Low lung volume examination with trace amount of left basilar atelectasis, or less likely infiltrates. Electronically authenticated by: DONNELL DU Date: 05/17/2023 10:27 ECG Data Attestation: I personally reviewed and interpreted this ECG as follows: (EKG on my interpretation shows sinus rhythm with PACs.) Heart Score History: Moderately Suspicious ECG: Normal Age: >65 years Risk Factors: >3 Risk Factors/ HX of CAD:2 Troponin: <Normal Limit Total Heart Score Recommendations & Risks:: 5 Discharge Plan Discharge Chief Complaint: Chest Pain Clinical Impression: Chest pain Patient Disposition: Home, Self-Care Time of Disposition Decision: 13:28 Condition: Good Mode of Transportation: Private Vehicle Prescriptions / Home Meds: No Action calcitriol 0.25 mcg capsule 0.25 mcg PO DAILY ergocalciferol (vitamin D2) 1,250 mcg (50,000 unit) capsule 50,000 unit PO QWEEK budesonide 3 mg capsule,delayed,extend.release 9 mg PO DAILY topiramate 25 mg tablet 25 mg PO BID aspirin [Adult Low Dose Aspirin] 81 mg tablet,delayed release (DR/EC) 81 mg PO DAILY benazepril 10 mg tablet 10 mg PO DAILY calcium carbonate 500 mg calcium (1,250 mg) tablet 500 mg PO BID diltiazem HCl 180 mg capsule,extended release 24hr 360 mg PO QAM levothyroxine 150 mcg tablet 150 mcg PO .COMPLEX Rx Instructions: 150 mcg orally 4 times a wk; Sat, Sat, Sat, Sun; levothyroxine 175 mcg tablet 175 mcg PO DAILY pramipexole 1 mg tablet 2 mg PO QAM Instructions: Chest Pain (ED) Additional Instructions: calling her information assurance engineer's office today for follow-up appointment on May 20 Stand Alone Forms: Portal Instructions Referrals: ANASTASIA BURRIS [Primary Care Provider] - 1 week
--- NOTE | 2023-05-17 09:57 | ECG_ITS ---
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
--- NOTE | 2023-05-17 09:57 | XR_ITS ---
The [address] [address] Patient Name: YOLI ANTUNEZ MRN: [id number] date: 1955 Sex: M Assigned Patient Location: ER Current Patient Location: ED.MAIN Accession/Order Number: [id number] Exam Date: 05/17/2023 09:55 Report Date: 05/17/2023 10:27 At the request of: CONCHA PHILLIPS Procedure: XR chest 1V EXAMINATION: XR chest 1V HISTORY: chest pain COMPARISON: XR chest 01/16/2023 FINDINGS: LUNGS: Underexpanded lungs with minimal haziness and stranding within left lung base. VASCULATURE: No increased pulmonary vasculature. PLEURA: No pneumothorax, effusion, or pleural thickening. CARDIAC: No cardiomegaly or cardiac silhouette abnormality. MEDIASTINUM: No visible mass or adenopathy. BONES: No fracture or visible bone lesion. OTHER: Stable loop recorder projecting over lower left chest. XR/XR chest 1V IMPRESSION: 1. Low lung volume examination with trace amount of left basilar atelectasis, or less likely infiltrates. Electronically authenticated by: DONNELL DU Date: 05/17/2023 10:27
--- OUTSIDE RECORDS SUMMARY | 2023-05-17 09:57 | XMS_ITS | CCD ---
Author Name Unknown Address [address] [place] [address] Organization [facility] Care Team Providers Care Electronic Communications Technician Name Role Phone CLAIR MATT Unavailable Unavailable RADHA BURRIS Unavailable Unavailable Chris Luong Unavailable Unavailable Fatuma, Ritu Unavailable Unavailable Terrell Her Unavailable Unavailable Terrell Her Unavailable Unavailable Phillip Escobar Unavailable Unavailable Warren Burrisssica Unavailable Unavailable RADHA PRICE Primary Care Un available MAYELIN WOLFF Referring Unavailable Radha Price Primary Care [facility] armando PROVIDER, UNKNOWN Attending Unavailable PROVIDER, UNKNOWN Admitting Unavailable RDAHA BURRIS Primary Care Unavailable PATIENT, SELF Referring Unavailable Thor Fox Unavailable Lashawn Estrada Unavailable RADHA BURRIS Referring Unavailable MONO CHRISTIE V Admitting Unavailable MONO CHRISTIE V Attending Unavailable RADHA BURRIS Primary Care Unavailable RADHA BURRIS Primary Care Unavailable LALITO JOSHI Admitting Unavailable LALITO JOSHI Attending Unavailable RADHA BURRIS Referring Unavailable RADHA BURRIS Referring Unavailable SHAYE PALMER Admitting Unavailable SHAYE PALMER Attending Unavailable RADHA BURRIS Primary Care Unavailable JANET FORD Consulting Unavailable EVELIO, DARIELA Admitting Unavailable EVELIO DARIELA Attending Unavailable MINDY SEVERINO Referring Unavailable RADHA PRICE Primary Care Un available BHAVESH GUNTER Consulting Unavailable CANOS MARIO ROBERTSON Consulting Unavaila DUSTY Casillas Consulting Unavailable Radha Price MD Primary Care Pr ovider Radha Burris MD Primary Care Provider Esther Grey DO Unavailable Radha Burris Primary Care Provider Tucker VAZQUEZ, Elian Caballero Unavailable Luan VAZQUEZ, Herminia Schuler Unavailable [phone] MARKER, DR MARTIN Consulting Unavailable MARKER, DR MARTIN Attending Unavailable FATUMA, DR OCONNOR Primary Care Unavailable MARKER, DR MARTIN Admitting Unavailable AMOS RAMIREZ Consulting Unavailable FATUMA, DR OCONNOR Primary Care Unavailable CONCHA PHILLIPS Attending Unavailable MICHAEL, DR MAYELIN Lovell Consulting Unavailable CONCHA PHILLIPS Admitting Unavailable BLANCHE SEVERINO Consulting Unavailable DAVIE NARANJO Consulting Unavailable SAMANTHA, DR DEVANTE Zhang Attending Unavailsadaf e FATUMA, DR OCONNOR Primary Care Unavailable BLANCHE SEVERINO Consulting Unavailable SAMANTHA, DR DEVANTE Zhang Admitting Unavailsadaf Du, DR Gutierrez Consulting Unavailable FATUMA, DR OCONNOR Primary Care Unavailable BENITA JEFFREY Attending Unavailable BENITA JEFFREY Admitting Unavailable BENITA JEFFREY Consulting Unavailable LUZ ELENA EMERY Consulting Unavailable FATUMA, DR OCONNOR Primary Care Unavailable BENITA JEFFREY Attending Unavailable Jasbir, DR Gutierrez Consulting Unavailable BENITA JEFFREY Admitting Unavailable BENITA JEFFREY Consulting Unavailable MICHAEL, DR MAYELIN Lovell Consulting Unavailable FATUMA, DR OCONNOR Primary Care Unavailable CONCHA PHILLIPS Admitting Unavailable CONCHA PHILLIPS Attending Unavailable CONCHA PHILLIPS Consulting Unavailable ALIYA NEFF Consulting Unavailable BRYNN, DR AISHWARYA Carr Consulting Unavailable BRYNN, DR AISHWARYA Carr Attending Unavailable FATUMA, DR OCONNOR Primary Care Unavailable BRYNN, DR AISHWARYA Carr Admitting Unavailable NICOLE CASAREZ Consulting Unavailable CONNER TANG Consulting Unavailable BENITA JEFFREY Consulting Unavailable FLORENTIN PALMA Consulting Unavailable YANDEL SHEN Admitting Unavailable YANDEL SHEN Attending Unavailable Jasbir, DR Gutierrez Consulting Unavailable FATUMA, DR OCONNOR Primary Care Unavailable YANDEL SHEN Consulting Unavailable MOUKARBEL, DR VILLAREAL Consulting Unavailable MOUKARBEL, DR VILLAREAL Attending Unavailable MOUKARBEL, DR VILLAREAL Admitting Unavailable FATUMA, DR OCONNOR Primary Care Unavailable VITALIY, YANDEL Consulting Unavailable VITALIY, YANDEL Attending Unavailable FATUMA, DR OCONNOR Primary Care Unavailable VITALIY, YANDEL Admitting Unavailable VITALIY, YANDEL Admitting Unavailable VITALIY, YANDEL Attending Unavailable FATUMA, DR OCONNOR Primary Care Unavailable WEST, DR SUAREZ Consulting Unavailable VITALIY, YANDEL Consulting Unavailable MOUKARBEL, DR VILLAREAL Consulting Unavailable MOUKARBEL, DR VILLAREAL Attending Unavailable FATUMA, DR OCONNOR Primary Care Unavailable MOUKARBEL, DR VILLAREAL Admitting Unavailable VITALIY, YANDEL Admitting Unavailable VITALIY, YANDEL Consulting Unavailable VITALIY, YANDEL Attending Unavailable FATUMA, DR OCONNOR Primary Care Unavailable Fatuma, Radha R Unavailable [phone] Unavailable Unavailable Fatuma, Dr. Radha Waite Primary Care Unavail able Bhavesh Penn Admitting Unavailable Bhavesh Penn Attending Unavailable Killian, Dr. Ruby Maguire Attending Unavailab nikki Daily, Dr. Ruby Maguire Referring Unavailab le Fatuma, Dr. Radha Waite Primary Care Unavail able Rika Butt, Dr. Arabella Siddiqi Attending Unavailable Fatuma, Dr. Radha Waite Primary Care Unavail able Rika Butt, Dr. Arabella Siddiqi Attending Unavailable Fatuma, Dr. Radha Waite Primary Care Unavail able Rika Butt, Dr. Arabella Siddiqi Attending Unavailable Rika Butt, Dr. Arabella Siddiqi Referring Unavailable Fatuma, Dr. Radha Waite Primary Care Unavail able Rika Butt, Dr. Arabella Siddiqi Admitting Unavailable Rika Butt, Dr. Arabella Siddiqi Attending Unavailable Fatuma, Dr. Radha Waite Primary Care Unavail able Killian, Dr. Ruby Maguire Referring Unavailab nikki Diego, Dr. Beth Hedrick Attending Unavai kishale Fatuma, Dr. Radha Waite Primary Care Unavail able Killian, Dr. Ruby Maguire Attending Unavailab le Fatuma, Dr. Radha Waite Primary Care Unavail able Killian, Dr. Ruby Maguire Attending Unavailab le Fatuma, Dr. Radha Waiet Primary Care Unavail able Sayon, Dr. Sy Attending Unavailable Sayon, Dr. Sy Referring Unavailable Fatuma, Dr. Radha Waite Primary Care Unavail able Sayon, Dr. Sy Attending Unavailable Sayon, Dr. Sy Referring Unavailable Fatuma, Dr. Radha Waite Primary Care Unavail able Sayon, Dr. Sy Attending Unavailable Sayon, Dr. Sy Referring Unavailable Fatuma, Dr. Radha Waite Primary Care Unavail able Fatuma, Dr. Radha Waite Primary Care Unavail able Aydin, Dr. Ranjana Joiner Attending U navailable Fatuma, Dr. Radha Waite Primary Care Unavail able Aydin, Dr. Ranjana Joiner Attending U navailable Aydin, Dr. Ranjana Joiner Referring U navailable Fatuma, Dr. Radha Waite Primary Care Unavail able Aydin, Dr. Ranjana Joiner Attending U navailable Killian, Dr. Ruby Maguire Referring Unavailab le Daily, Dr. Ruby Maguire Attending Unavailab le Fatuma, Dr. Radha Waite Primary Care Unavail able Aydin, Dr. Ranjana Joiner Attending U navailable Aydin, Dr. Ranjana Joiner Referring U navailable Fatuma, Dr. Radha Waite Primary Care Unavail able Killian, Dr. Ruby Maguire Referring Unavailab le Diego, Dr. Beth Hedrick Admitting Unavai labnikki Diego, Dr. Beth Hedrick Attending Unavai lable Fatuma, Dr. Radha Waite Primary Care Unavail able Killian, Dr. Ruby Maguire Admitting Unavailab le Daily, Dr. Ruby Maguire Attending Unavailab le Daily, Dr. Ruby Maguire Referring Unavailab le Fatuma, Dr. Radha Waite Primary Care Unavail able Aydin, Dr. Ranjana Joiner Attending U navailable Fatuma, Dr. Radha Waite Primary Care Unavail able Saycaleb, Dr. Sy Admitting Unavailable Sayon, Dr. Sy Attending Unavailable Fatuma, Dr. Radha Waite Primary Care Unavail able Dr. Radha Burris Referring Unavail able Tucker VAZQUEZ, Elian K Unavailable Luan VAZQUEZ, Herminia Schuler Unavailable [phone] Fatuma VAZQUEZ, Radha Waite Primary Care Provider YOSSI CHEN Attending Unavailable RADHA BURRIS Primary Care Unavailable RADHA BURRIS Primary Care Unavailable FATUMA, RADHA WAITE Primary Care Unavailable YOSSI CHEN Referring Unavailable RADHA BURRIS Primary Care Unavailable RADHA BURRIS Primary Care Unavailable SARBJIT RICHARDSON Attending Unavailable RADHA BURRIS Primary Care Unavailable RADHA BURRIS Primary Care Unavailable SARBJIT RICHARDSON Attending Unavailable RADHA BURRIS Primary Care Unavailable RADHA BURRIS Primary Care Unavailable RADHA BURRIS Primary Care Unavailable RADHA BURRIS Primary Care Unavailable SARBJIT RICHARDSON Referring Unavailable MARÍA PEARL Attending Unavailable RADHA BURRIS Primary Care Unavailable SARBJIT RICHARDSON Attending Unavailable Charlene Soria Unavailable MD Radha Rapp Primary Care Pr ovider MD Charlene Soria Attending Provider [phone] MUNA DICKERSON Attending Unavailable JACKIE BANKS Attending Unavailable JAYLYN BENDER Referring Unavailable COLLIN GONSALEZ Attending Unavailable YANDEL SHEN Referring Unavailable YANDEL SHEN Attending Unavailable JACKIE BANKS Attending Unavailable JAYLYN BENDER Attending Unavailable JAYLYN BENDER Referring Unavailable MAHMOUD, MUNA Referring Unavailable MAHMOUD, WALID Referring Unavailable MAHMOUD, WALID Referring Unavailable NAPOLEON JAYLYN Referring Unavailable YANDEL SHEN Attending Unavailable LACEY BOLDEN Referring Unavailable ERIK BOLDENIR Referring Unavailable JACKIE BANKS Referring Unavailable LALITO JOSHI Referring Unavailable VERONICA MELÉNDEZ Attending Unavailable JACKIE BANKS Attending Unavailable ELYSSA SOLANO Attending Unavailable MATIAS JUAREZ Attending Unavailab MARTÍN Garcia Attending Unavailable ELEONORA LAUREANO Referring UnavailMAYELIN Pruitt Attending Unavailable Radha Rapp Primary Care Un available Asaad, Imad Attending Unavailable Asaad, Imad Admitting Unavailable Allergies Allergy Classification Reported Allergen(s) Allergy Type Date of Onset Reaction(s) Facility (20 sources) Amoxicillin; Translations: [amoxicillin] Drug Allergy 3 Unknown [facility] (20 sources) Penicillins; Translations: [Penicillins] drug allergy 1 Rash [facility] (11 sources) Penicillin Drug Allergy Unknown [facility] Other (1 source) Penicillin Drug Allergy [address] [facility] (20 sources) dofetilide; Translations: [Tikosyn CAPS] Drug Allergy 2 Other: See Comments, Unknown [facility] (1 source) Penicillins Propensity to adverse reactions to drug 1 [facility] Work Phone: (19 sources) Penicillins Drug Allergy 1 Unknown [facility] Work Phone: (1 source) dofetilide Drug Allergy 3 [facility] (1 source) Penicillins Drug allergy (disorder) 5 [facility] (4 sources) Vancomycin; Translations: [VANCOMYCIN] Drug Allergy 2 Hives [facility] (19 sources) Vancomycin; Translations: [Vancomycin HCl CAPS] Drug Allergy 3 Anaphylaxis [facility] (8 sources) Vancomycin HCl in Dextrose SOLN; Translations: [Vancomycin HCl in Dextrose SOLN] Allergy to drug (finding) [facility] Work Phone: (7 sources) Vancomycin; Translations: [VANCOMYCIN HCL] Drug Allergy 3 Unknown [facility] Work Phone: (7 sources) Vancomycin Hcl In Water; Translations: [VANCOMYCIN HCL IN WATER] Propensity to adverse reactions 3 Unknown [facility] Work Phone: (1 source) dofetilide Drug Allergy 3 [facility] (1 source) Penicillins Drug allergy (disorder) 1 [facility] (1 source) Vancomycin Drug Allergy 3 [facility] Medications Current Medications Medication Drug Class(es) Dates Sig (Normalized) Sig (Original) benazepril hydrochloride 10 mg oral tablet (20 sources) Angiotensin Converting Enzyme Inhibitor Start: 05-31-2022 take 1 tablet by mouth once daily benazepril (Lotensin) 10 mg tablet Take 1 tablet (10 mg) by mouth once daily. 0 11/14/2022 Active Start: 12-26-2021 End: 01-05-2022 take 1 tablet by mouth once daily Benazepril HCl - 10 MG Oral Tablet TAKE 1 TABLET BY MOUTH ONCE DAILY Quantity: 90 Refills: 0 Ordered: 13-Aug-2022 DO Start : 26-Dec-2021 Active Start: 12-07-2019 benazepril (LO TENSIN) 5 mg tablet Start: 11-06-2019 take 2 tablets by mo [facility] once daily benazepril (Lotensin) 5 mg tablet Take 2 tablets (10 mg) by mouth once daily. Replacing amlodipine/benazepril 0 11/06/2019 Active Comment on above: Take 1 tablet by ana once daily. budesonide 3 mg delayed release oral capsule (2 sources) Corticosteroid Start: 4 Budesonide 3 MG 3 tabs daily for 60 days, 2 tabs daily for 14 days, 1 tab daily for 14 days Orally Once a day for 90 days Apr, Active calcitriol 0.33714 mg oral capsule (20 sources) Vitamin D3 Analog Start: 0 End: 3 take 0.25 ug by mouth once daily Calcitriol Active 0.25 MCG PO Daily April 12, 2023 12:00am Start: 09-25-2018 End: 07-01-2020 take 1 capsule by mouth twice daily Calcitriol (Rocaltrol) 0.25 mcg Capsule Discontinued 0.25 MCG PO Twice daily 60 30 September 25, 2018 7:45am July 01, 2020 2:33pm Calcitriol 0.25 MCG Oral Capsule Quantity: 0 Refills: 0 Ordered: 29-Jun-2019 DO Active Calcitriol Activ e Comment on above: Take 0.25 mcg by ana th once daily. Calcium (20 sources) Phosphate Binder, Calcium Calciu m TABS Quantity: 0 Refills: 0 Ordered: 29-Jun-2019 DO Active CALCIUM ORAL Cheng e by mouth. 0 Active Calcium Active Calcium TABS Ref ills: 0 Active calcium carbonate 1250 mg oral tablet (20 sources) Start: 04-12-2023 take 1 tablet by mouth once daily Calcium Carbonate (Calcium 500) 500 mg calcium (1,250 mg) Tablet Active 500 MG PO Daily April 12, 2023 12:00am Start: 05-22-2022 take 1 tablet by ana th twice daily at mealtime calcium carbonate (Oscal) 500 mg calcium (1,250 mg) tablet Take 1 tablet (1,250 mg) by mouth 2 times a day with meals. 0 05/22/2022 Active Start: 01-10-2022 take 1 tablet by ana twice daily at mealtime Oyster Shell Calcium 500 MG Oral Tablet TAKE 1 TABLET BY MOUTH TWICE DAILY WITH MEALS Quantity: 180 Refills: 0 Ordered: 22-May-2022 DO Start : 10-Jan-2022 Active take 1 tablet by mouth once james y calcium carbonate 500 mg calcium (1,250 mg) chewable tablet Take 1 tablet by mouth once daily. 0 Active Comment on above: Take 1 tablet by ana once daily. cholestyramine resin 4000 mg powder for oral suspension (5 sources) Bile Acid Sequestrant Start: 03-20-2023 Cholestyramine 4 GM/DOSE 1 scoop Orally Once a day for 30 days Feb, Active Start: 03-20-2023 Cholestyramine 4 GM/DOSE 1 scoop Orally Once a day for 30 days Feb, Active clindamycin 300 mg oral capsule (1 source) Lincosamide Antibacterial Start: 01-27-2020 take 2 capsules by mouth twice daily clindamycin (CLEOCIN) 300 MG capsule Take 2 Capsules by mouth 2 times daily. 28 Capsule 0 01/27/2020 Active clopidogrel 75 mg oral tablet (19 sources) P2Y12 Platelet Inhibitor Start: 05-31-2022 clopidogrel (Plavix) 75 mg tablet Take by mouth. 0 07/28/2022 Active End: 09-25-2022 Plavix 75 MG Oral Tablet Sriram ntity: 0 Refills: 0 Ordered: 25-Sep-2022 DO End : 25-Sep-2022 Complete Plavix 75 MG Ora l Tablet Quantity: 0 Refills: 0 Ordered: 17-Jul-2022 DO Active Comment on above: Take 1 tablet by ana th once daily. dexamethasone (DECADRON) 40 mg in sodium chloride 0.9 % 100 mL IVPB (1 source) Start: 03-11-20 dexamethasone (DECADRON) 40 mg in sodium chloride 0.9 % 100 mL IVPB dicyclomine hydrochloride 10 mg oral capsule (5 sources) Anticholinergic Start: 04-12-20 take 10 mg by mouth twice daily Dicyclomine Active 10 MG PO Twice daily April 12, 2023 12:00am Start: 04-01-2023 take 1 capsule by mo uth twice daily Bentyl 10 MG 1 capsule Orally twice a day for 30 days Mar, Active 24 hr dilTIAZem hydrochloride 180 mg extended release oral capsule (20 sources) Calcium Channel González Start: 04-12-2023 take 260 mg by mouth once daily Diltiazem Hcl Active 260 MG PO Daily April 12, 2023 12:00am Start: 09-08-2022 take 2 capsules by m outh once daily in the morning dilTIAZem CD (Cardizem CD) 180 mg 24 hr capsule Take 2 capsules (360 mg) by mouth once daily in the morning. 0 09/08/2022 Active Start: 06-08-2022 dilTIAZem HCl ER Coated Beads 180 MG Oral Capsule Extended Release 24 Hour Quantity: 180 Refills: 0 Ordered: 08-Sep-2022 DO Start : 08-Jun-2022 Active Start: 05-31-2022 take 1 tablet by ana th once daily dilTIAZem HCl 360 mg 24 hr tablet Take 1 tablet by mouth once daily. 0 05/31/2022 Active Start: 04-30-2022 take 1 capsule by mo uth once daily in the morning dilTIAZem CD (Cardizem CD) 240 mg 24 hr capsule Take 1 capsule (240 mg) by mouth once daily in the morning. 0 04/30/2022 Active Start: 03-22-2022 End: 09-25-2022 take 9 capsules by mouth every twenty-four hours dilTIAZem HCl ER Coated Beads 240 MG Oral Capsule Extended Release 24 Hour Quantity: 30 Refills: 0 Ordered: 30-Apr-2022 DO Start : 22-Mar-2022 End : 25-Sep-2022 Complete Start: 01-15-2020 dilTIAZem CD ( dilTIAZem ER) 120 mg 24 hr capsule Take by mouth. 0 01/15/2020 Active Start: 11-06-2019 take 2 tablets by mo uth four times daily dilTIAZem (Cardizem) 30 mg immediate release tablet Take 2 tablets (60 mg) by mouth 4 times a day. 0 11/06/2019 Active take 2 capsules by m outh in the morning dilTIAZem HCl ER Coated Beads 180 MG TAKE 2 CAPSULES BY MOUTH IN THE MORNING Oral for 90 Days Active take 1 capsule by mo uth every twenty-four hours dilTIAZem HCl ER 180 MG Oral Capsule Extended Release 24 Hour Quantity: 0 Refills: 0 Ordered: 17-Jul-2022 DO Active End: 01-05-2022 take 1 capsule by mouth once daily dilTIAZem (CARDIZEM 12 HR) 120 MG extended release capsule Take 120 mg by mouth daily 0 01/05/2022 Discontinued (Stop Taking at Discharge) Comment on above: Take 1 tablet by ana once daily. ERENUMAB-AOOE SUBQ (2 sources) ERENUMAB-AOOE SHULTZ BQ Inject under the skin. 0 Active ergocalciferol 1.25 mg oral capsule (20 sources) Provitamin D2 Compound Start: 10-09-19 take 1 capsule by mouth every week ergocalciferol (Vitamin D-2) 1.25 MG (93573 UT) capsule Take 1 capsule (1,250 mcg) by mouth 1 (one) time per week. 0 10/08/2022 Active Start: 01-10-2022 take 1 capsule by mo uth every week Vitamin D (Ergocalciferol) 1.25 MG (02410 UT) Oral Capsule TAKE 1 CAPSULE BY MOUTH ONCE A WEEK Quantity: 12 Refills: 0 Ordered: 17-Jul-2022 DO Start : 10-Jan-2022 Active Vitamin D2 Activ e Comment on above: Take 50,000 Units by mouth one time a week. fluconazole 100 mg oral tablet (1 source) Azole Antifungal Start: 0 take 1 tablet by mouth once daily fluconazole (DIFLUCAN) 100 MG tablet Take 1 Tablet by mouth daily. 14 Tablet 1 01/27/2020 Active HYDROmorphone (DILAUDID) injection 0.25 mg (2 sources) Start: HYDROmorphone (DILAUDID) injection 0.25 mg Start: 12-31-2021 End: 01-02-2022 HYDROmorphone (DILAUDID) inj ection 0.25 mg levothyroxine sodium 0.175 mg oral tablet (20 sources) l-Thyroxine Start: 01-03-2022 take 150 ug by mouth once daily 150 mcg, Oral, DAILY, First dose on Sat01/03/22 at 0900, Until Discontinued Tube feeding (TF) interaction, obtain physician order to manage, recommend holding TF for 30 minutes before and after dose. Start: 12-15-2020 take 1 tablet by ana once daily before mealtime levothyroxine (Synthroid, Levoxyl) 175 mcg tablet Take 1 tablet (175 mcg) by mouth once daily in the morning. Take before meals. TAKE ON AN EMPTY STOMACH ON , AND SAT 0 10/11/2022 Active Start: 07-01-2020 End: 04-12-2023 take 125 ug by mouth once daily Levothyroxine Disconti nued 25 MCG PO Daily July 01, 2020 12:00am April 12, 2023 12:19pm takes with 125mcg dose for 150mcg daily Start: 01-15-2020 levothyroxine (Synthroid, Levoxyl) 25 mcg tablet Take by mouth. 0 01/15/2020 Active Start: 01-15-2020 take 5 tablets by mo [facility] once daily levothyroxine (SYNTHROID) 25 MCG tablet TAKE 5 TABLETS BY MOUTH DAILY. 30 Tablet 3 01/15/2020 Active Start: 11-06-2019 take 1 tablet by ana th once daily at bedtime levothyroxine (Synthroid, Levoxyl) 125 mcg tablet Take 1 tablet (125 mcg) by mouth once daily at bedtime. REPEAT TSH in FOUR WEEKS 0 11/06/2019 Active Start: 05-02-2018 take 25 ug by mouth once daily Levothyroxine Active 175 MCG PO Daily May 02, 2018 12:00am takes with 25mcg for 150mcg dose take 1 tablet by ana th once daily in the morning Synthroid 175 MCG 1 tablet on an empty stomach in the morning Orally Once a day for 90 days Active take 1 tablet by ana th once daily before mealtime levothyroxine (Synthroid, Levoxyl) 150 mcg tablet Take 1 tablet (150 mcg) by mouth once daily in the morning. Take before meals. TAKE ON AN EMPTY STOMACH ON SATURDAY, SATURDAY, SATURDAY AND SATURDAY 0 Active Levothyroxine So dium 175 MCG Oral Tablet Quantity: 0 Refills: 0 Ordered: 17-Jul-2022 DO Active Levothyroxine So dium 150 MCG Oral Capsule Quantity: 0 Refills: 0 Ordered: 17-Jul-2022 DO Active take 1 tablet by ana th once daily in the morning Synthroid 150 MCG 1 tablet on an empty stomach in the morning Orally Once a day for 90 days Active Comment on above: Take 1 tablet by ana th daily before breakfast. lisinopril 5 mg oral tablet (1 source) Angiotensin Converting Enzyme Inhibitor Start: 01-15-20 take 1 tablet by mouth once daily lisinopril (ZESTRIL) 5 MG tablet TAKE 1 TABLET BY MOUTH DAILY. 90 Tablet 3 01/15/2020 Active magnesium sulfate 4 g, lidocaine (cardiac) (XYLOCAINE) 100 mg in sodium chloride 0.9 % 250 mL IVPB (1 source) Start: 03-11-20 magnesium sulfate 4 g, lidocaine (cardiac) (XYLOCAINE) 100 mg in sodium chloride 0.9 % 250 mL IVPB midodrine hydrochloride 5 mg oral tablet (5 sources) alpha-Adrenergic Agonist Midodrine HCl 5 MG Oral for 30 Days Active nitrofurantoin, macrocrystals 25 mg / nitrofurantoin, monohydrate 75 mg oral capsule (1 source) Nitrofuran Antibacterial Start: 01-22-20 nitrofurantoin monohydrate macrocrystal (MACROBID) 100 MG capsule nystatin 100 unt/mg topical powder (1 source) Polyene Antifungal Start: 01-27-20 nystatin (MYCOSTATIN) 100,000 unit/g powder Apply topically 3 times daily. 45 g 1 01/27/2020 Active omeprazole 20 mg delayed release oral capsule (20 sources) Proton Pump Inhibitor Start: 07-18-19 End: 01-01-20 take 1 capsule by mouth once daily at dinner omeprazole (PriLOSEC) [address] capsule Take 1 capsule (20 mg) by mouth once daily. Take 30 minutes prior to dinner 0 10/09/2022 Active Start: 07-17-2022 take 1 capsule by mo uth at dinner Omeprazole 20 MG Oral Capsule Delayed Release TAKE 1 CAPSULE BY MOUTH 30 MINUTES PRIOR TO DINNER Quantity: 30 Refills: 0 Ordered: 08-Oct-2022 Ranjana Perrin MD Start : 17-Jul-2022 Active Start: 07-01-2020 End: 04-12-2023 take 40 mg by mouth twice daily Omeprazole Discontinue d 40 MG PO Twice daily 90 July 02, 2020 12:00am April 12, 2023 12:19pm Start: 01-15-2020 take 1 capsule by mo uth once daily omeprazole (PRILOSEC) 40 MG capsule TAKE 1 CAPSULE BY MOUTH DAILY. 30 Capsule 0 01/15/2020 Active Omeprazole Not-T aking/PRN End: 05-31-2022 omeprazole (PRILOSEC) 20 mg capsule Take 40 mg by mouth. 0 05/31/2022 Discontinued (Discontinued by another Health Care Provider) Omeprazole Not-T aking Comment on above: Take 40 mg by mouth. Take 20 mg by mouth once daily. ondansetron (ZOFRAN-ODT) disintegrating tablet 4 mg (1 source) Start: 01-01-20 ondansetron (ZOFRAN-ODT) disintegrating tablet 4 mg polyethylene glycol [id number] [id number] mg / potassium chloride 2970 mg / sodium bicarbonate 6740 mg / sodium chloride 5860 mg / sodium sulfate 00763 mg powder for oral solution (5 sources) Osmotic Laxative Start: 03-20-20 take 4000 mL by mouth once Golytely 236 GM 4,000 ML Orally once for 1 Feb, Active pramipexole dihydrochloride 1 mg oral tablet (20 sources) Nonergot Dopamine Agonist Start: 01-15-20 take 2 tablets by mouth at bedtime pramipexole (MIRAPEX) 1 MG tablet TAKE 2 TABLETS BY MOUTH AT BEDTIME. 90 Tablet 3 01/15/2020 Active Start: 05-02-2018 End: 04-12-2023 pramipexole (MIRAPEX) tablet 2 mg Mirapex 1 MG TAB S TAKE 1 TABLET TWICE DAILY. Quantity: 0 Refills: 0 Ordered: 03-Mar-2019 DO Active Comment on above: Take 2 mg by mouth d aily at bedtime. pyridostigmine bromide 60 mg oral tablet (19 sources) Start: 3 End: 3 take 1 tablet by mouth three times daily before breakfast, then take 0.5 tablet by mouth three times daily at mealtime, then take 1 tablet by mouth three times daily pyridostigmine (Mestinon) 60 mg tablet TAKE 1 TAB BY MOUTH THREE TIMES DAILY (BEFORE BREAKFAST, BEFORE LUNCH, BEFORE EVENING MEAL) START AT ONE HALF TAB THREE TIMES DAILY WITH MEALS AND INCREASE TOLERATED TO THE FULL TAB 3 TIMES A DAY 0 08/08/2022 Active sucralfate 1000 mg oral tablet (20 sources) Aluminum Complex Start: 0 sucralfate (Carafate) 1 gram tablet Take by mouth. 0 01/15/2020 Active Start: 01-15-2020 Sucralfate 1 G M Oral Tablet Quantity: 120 Refills: 0 Ordered: 15-Jan-2020 DO Start : 15-Jan-2020 Active topiramate 25 mg oral tablet (2 sources) Start: 04-12-2023 take 25 mg by mouth twice daily Topiramate Active 25 MG PO Twice daily April 12, 2023 12:00am Start: 05-02-2018 End: 09-16-2018 take 50 mg by mouth twice daily Topiramate Discontinued 50 MG PO Twice daily May 02, 2018 12:00am September 16, 2018 2:06pm 5 ml valproic acid 100 mg/ml injection (1 source) Mood Stabilizer, Anti-epileptic Agent Start: 03-11-2020 Valproate Sodium SOLN 2,000 mg 24 hr venlafaxine 37.5 mg extended release oral capsule (9 sources) Serotonin and Norepinephrine Reuptake Inhibitor Start: 07-20-2022 End: 09-25-2022 take 1 capsule by mouth once daily in the morning venlafaxine XR (Effexor-XR) 37.5 mg 24 hr capsule Take 1 capsule (37.5 mg) by mouth once daily in the morning. DO NOT CRUSH OR CHEW 0 07/21/2022 Active take 1 tablet by ana th three times daily venlafaxine (EFFEXOR) 37.5 mg tablet Cheng e 37.5 mg by mouth three times daily. 0 Active Comment on above: Take 37.5 mg by mout h three times daily. vitamin b12 1 mg oral tablet (1 source) Vitamin B12 take 1.25 ug by mouth every week vitamin B-12 (CYANOCOBALAMIN) 1000 MCG tablet Take 1.25 mcg by mouth once a week Saturday 0 Active Completed/Discontinued Medications Medication Drug Class(es) Dates Sig (Normalized) Sig (Original) acetaminophen 325 mg / oxyCODONE hydrochloride 5 mg oral tablet (3 sources) Opioid Agonist Start: 01-05-2022 End: 09-25-2022 oxyCODONE-Acetamin ophen 5-325 MG Oral Tablet Quantity: 15 Refills: 0 Ordered: 05-Jan-2022 DO Start : 05-Jan-2022 End : 25-Sep-2022 Complete Start: 01-05-2022 End: 01-08-2022 take 1 tablet by mouth every eight hours as needed for pain oxyCODONE-acetaminophen (PERCOCET) 5-325 MG per tablet Indications: Acute pancreatitis, unspecified complication status, unspecified pancreatitis type Take 1 tablet by mouth every 8 hours as needed for Pain for up to 3 days. 15 tablet 0 01/05/2022 01/08/2022 Active Start: 01-02-2022 oxyCODONE-acet aminophen (PERCOCET) 5-325 MG per tablet 1 tablet Aimovig (11 sources) Aimovig Not-Taki ng/PRN Aimovig Not-Taki ng Amiodarone (11 sources) Antiarrhythmic Amiodarone HCl N ot-Taking/PRN Amiodarone HCl N ot-Taking amLODIPine 5 mg oral tablet (3 sources) Dihydropyridine Calcium Channel González amLODIPine Besylate 5 MG Oral Tablet Refills: 0 Active amLODIPine 5 mg / benazepril hydrochloride 10 mg oral capsule (10 sources) Dihydropyridine Calcium Channel González, Angiotensin Converting Enzyme Inhibitor Start: 02-27-2021 End: 09-25-2022 amLODIPine Besy-Benazepril HCl - 5-10 MG Oral Capsule Quantity: 90 Refills: 0 Ordered: 19-Nov-2021 DO Start : 27-Feb-2021 End : 25-Sep-2022 Complete Start: 02-08-2020 amlodipine-chanel azepril (LOTREL) 5-10 MG per capsule Start: 05-02-2018 End: 04-12-2023 take 1 capsule by mouth once daily in the evening Amlodipine-Benazepril Discontinued 1 CAP PO Every evening May 02, 2018 12:00am April 12, 2023 12:19pm Comment on above: Take 1 capsule by [facility] once daily. apixaban 5 mg oral tablet (12 sources) Factor Xa Inhibitor Start: 07-01-2020 End: 04-12-2023 take 5 mg by mouth twice daily 5 mg, Oral, 2 TIMES DAILY, First dose on Sat01/03/22 at 2100, Until Discontinued Indication of Use: A Fib/A Flutter ANTICOAGULANT Eliquis Active Comment on above: Take 5 mg by mouth t wice daily. aspirin 81 mg delayed release oral tablet (11 sources) Platelet Aggregation Inhibitor, Nonsteroidal Anti-inflammatory Drug take 1 tablet by mouth once daily aspirin, enteric coated (ASPIRIN, ENTERIC COATED) 81 mg EC tablet Take 81 mg by mouth once daily. 0 Active Comment on above: Take 81 mg by mouth once daily. atorvastatin 80 mg oral tablet (19 sources) HMG-CoA Reductase Inhibitor Start: 07-02-19 End: 04-12-20 23 take 80 mg by mouth once daily in the evening Atorvastatin Discontinued 80 MG PO Every evening July 01, 2020 12:00am April 12, 2023 12:19pm Atorvastatin Atilio cium Not-Taking/PRN End: 07-31-2022 Atorvastatin Calcium 80 MG O ral Tablet Quantity: 0 Refills: 0 Ordered: 31-Jul-2022 DO End : 31-Jul-2022 Complete Atorvastatin Atilio cium Not-Taking betamethasone 3 mg/ml / betamethasone acetate 3 mg/ml injectable suspension (2 sources) Corticosteroid Start: 05-31-2022 End: 05-31-2022 betamethasone acetate-betamethasone sodium phosphate 6 mg injection (CELESTONE) Start: 05-31-2022 End: 05-31-2022 betamethasone acetate-betame thasone sodium phosphate 12 mg injection (CELESTONE) calcium carbonate 1250 mg / cholecalciferol 600 unt oral tablet (2 sources) Vitamin D Start: 10-13-2018 End: 12-19-2018 take 2 tablets by mouth three times daily Calcium Carbonate-Vitamin D3 Discontinued 2 TAB PO Three times daily October 12, 2018 11:00pm December 19, 2018 9:18am Start: 09-25-2018 End: 10-13-2018 take 3 tablets by mouth every six hours Calcium Carbonate-Vitamin D3 (Oyster Shell Calcium-Vit D3) 500 mg(1,250mg) -200 unit Tablet Discontinued 3 TAB PO Q6H 360 30 September 25, 2018 7:45am October 13, 2018 8:09pm Calcium Carbonate-Vitamin D3 (Oyster Shell Calcium-Vit D3) 500 mg(1,250mg) -200 unit tablet (1 source) Start: 10-13-2018 End: 07-01-2020 take 4 tablets by mouth four times daily Calcium Carbonate-Vitamin D3 (Oyster Shell Calcium-Vit D3) 500 mg(1,250mg) -200 unit tablet Discontinued 4 TAB PO Four times daily October 13, 2018 8:15pm July 01, 2020 2:30pm calcium chloride 0.0014 meq/ml / potassium chloride 0.004 meq/ml / sodium chloride 0.103 meq/ml / sodium lactate 0.028 meq/ml injectable solution (2 sources) Start: 01-01-2022 End: 01-01-2022 lactated ringers bolus cefdinir 300 mg oral capsule (1 source) Cephalosporin Antibacterial Start: 07-14-2022 End: 09-25-2022 Cefdinir 300 MG Oral Capsule Quantity: 14 Refills: 0 Ordered: 14-Jul-2022 DO Start : 14-Jul-2022 End : 25-Sep-2022 Complete ciprofloxacin 500 mg oral tablet (6 sources) Quinolone Antimicrobial Start: 01-05-2022 End: 09-25-2022 Ciprofloxacin HCl - 500 MG Oral Tablet Quantity: 4 Refills: 0 Ordered: 05-Jan-2022 DO Start : 05-Jan-2022 End : 25-Sep-2022 Complete Start: 01-03-2022 End: 01-05-2022 take 1 tablet by mouth every twenty-four hours ciprofloxacin (CIPRO) 500 MG tablet Take 1 tablet by mouth every 24 hours for 5 doses 5 tablet 0 01/03/2022 01/05/2022 Discontinued (Stop Taking at Discharge) Start: 01-03-2022 End: 01-08-2022 ciprofloxacin (CIPRO) tablet 500 mg Start: 01-02-2022 End: 01-02-2022 ciprofloxacin (CIPRO) IVPB 4 00 mg cyclobenzaprine hydrochloride 10 mg oral tablet (3 sources) Muscle Relaxant Start: 11-29-2022 take 1 tablet by mouth twice daily as needed Cyclobenzaprine HCl - 10 MG Oral Tablet TAKE 1 TABLET TWICE DAILY NEEDED. Quantity: 6 Refills: 0 Ordered: 29-Nov-2022 Yossi Chen MD Start : 29-Nov-2022 Active 1 ml erenumab-aooe 140 mg/ml auto-injector (1 source) Start: 07-01-2020 End: 04-12-2023 inject 140 mg by subcutaneous injection every month Erenumab-Aooe (Aimovig Autoinjector) 140 mg/mL Auto-Injector Discontinued 140 MG SUBCUT every month July 01, 2020 12:00am April 12, 2023 12:19pm esomeprazole 40 mg delayed release oral capsule (1 source) Proton Pump Inhibitor Start: 01-15-2020 End: 01-15-2020 take 1 capsule by mouth twice daily 30 minutes before mealtime esomeprazole (NEXIUM) 40 MG capsule TAKE 1 CAPSULE BY MOUTH 2 TIMES DAILY (30 MINUTES BEFORE MEALS). 120 Capsule 1 01/15/2020 01/15/2020 Discontinued (Legacy Prescription Brought in as Discontinued) febuxostat 40 mg oral tablet (20 sources) Xanthine Oxidase Inhibitor Start: 06-24-2017 End: 04-12-2023 take 40 mg by mouth once daily Febuxostat Discontinued 40 MG PO Daily September 15, 2018 11:00pm April 12, 2023 12:19pm Comment on above: Take 40 mg by mouth once daily. gabapentin 300 mg oral capsule (17 sources) Anti-epileptic Agent Start: 11-29-2022 take 1 tablet by mouth twice daily as needed for pain Gabapentin 300 MG Oral Capsule 1 tablet twice daily as needed for pain Quantity: 10 Refills: 0 Ordered: 29-Nov-2022 Yossi Chen MD Start : 29-Nov-2022 Active Start: 07-01-2020 End: 04-12-2023 take 300 mg by mouth once daily in the evening Gabapentin Discontinued 300 MG PO Every evening July 01, 2020 12:00am April 12, 2023 12:19pm Gabapentin Not-T aking/PRN Gabapentin Not-T aking 1 ml HYDROmorphone hydrochloride 1 mg/ml cartridge (1 source) Opioid Agonist Start: 01-02-2022 End: 01-02-2022 HYDROmorphone (DILAUDID) injection 0.5 mg indocyanine green (IC-GREEN) syringe 5 mg (1 source) Start: 01-02-2022 End: 01-02-2022 indocyanine green (IC-GREEN) syringe 5 mg indomethacin 25 mg oral capsule (14 sources) Nonsteroidal Anti-inflammatory Drug Start: 07-01-2020 End: 07-02-2020 take 25 mg by mouth twice daily Indomethacin Discontinued 25 MG PO Twice daily July 01, 2020 12:00am July 02, 2020 10:09am Indomethacin Not -Taking/PRN Indomethacin Not -Taking iohexol (OMNIPaque) 350 mg iodine/mL injection 75 mL (1 source) Start: 02-01-2023 End: 02-01-2023 iohexol (OMNIPaque) 350 mg iodine/mL injection 75 mL 24 hr isosorbide mononitrate 60 mg extended release oral tablet (13 sources) Nitrate Vasodilator Start: 07-01-2020 End: 04-12-2023 take 60 mg by mouth once daily Isosorbide Mononitrate Discontinued 60 MG PO Daily July 01, 2020 12:00am April 12, 2023 12:19pm Start: 12-02-2019 isosorbide mon onitrate (IMDUR) 30 MG CR tablet Isosorbide Milo itrate Not-Taking/PRN Isosorbide Milo itrate Not-Taking ketorolac tromethamine 10 mg oral tablet (6 sources) Nonsteroidal Anti-inflammatory Drug, Cyclooxygenase Inhibitor Start: 11-29-2022 take 1 tablet by mouth every eight hours as needed for pain Ketorolac Tromethamine 10 MG Oral Tablet TAKE 1 TABLET EVERY 8 HOURS NEEDED FOR PAIN. Quantity: 9 Refills: 0 Ordered: 29-Nov-2022 Yossi Chen MD Start : 29-Nov-2022 Active Start: 02-07-2022 Ketorolac Trom ethamine 0.5 % Ophthalmic Solution Quantity: 5 Refills: 0 Ordered: 07-Feb-2022 DO Start : 07-Feb-2022 Active labetalol hydrochloride 5 mg/ml injectable solution (1 source) beta-Adrenergic González Start: 01-04-2022 End: 01-04-2022 labetalol (NORMODYNE;TRANDATE) injection 20 mg Start: 01-04-2022 End: 01-04-2022 labetalol (NORMODYNE;TRANDAT E) injection 20 mg 150 ml levoFLOXacin 5 mg/ml injection (1 source) Quinolone Antimicrobial Start: 01-01-2022 End: 01-02-2022 levoFLOXacin (LEVAQUIN) 750 MG/150ML infusion 750 mg 50 ml magnesium sulfate 40 mg/ml injection (1 source) Start: 01-01-2022 End: 01-01-2022 magnesium sulfate 2000 mg in 50 mL IVPB premix methylPREDNISolone (11 sources) Corticosteroid Start: 12-28-2015 Depo-Medrol 40 mg Dec, 1 mL metoprolol tartrate 75 mg oral tablet (16 sources) beta-Adrenergic González Start: 07-01-2020 End: 04-12-2023 take 75 mg by mouth twice daily Metoprolol Tartrate Discontinued 75 MG PO Twice daily July 01, 2020 12:00am April 12, 2023 12:19pm Start: 02-08-2020 metoprolol (LO PRESSOR) 25 MG tablet Start: 01-15-2020 take 1 tablet by ana th once daily metoprolol (TOPROL-XL) 25 mg XL tablet TAKE 1 TABLET BY MOUTH DAILY. 30 Tablet 3 01/15/2020 Active Metoprolol Tartr ate Not-Taking/PRN take 1 tablet by aan th every twenty-four hours metoprolol succinate XL (Toprol-XL) 25 mg 24 hr tablet Take by mouth. 0 Active Metoprolol Tartr ate Not-Taking metroNIDAZOLE 500 mg oral tablet (9 sources) Nitroimidazole Antimicrobial Start: 01-05-2022 metroNIDAZOLE 500 MG Oral Tablet Quantity: 6 Refills: 0 Ordered: 05-Jan-2022 DO Start : 05-Jan-2022 Active Start: 01-03-2022 End: 01-08-2022 500 mg, Oral, EVERY 8 HOURS SCHEDULED (3 times per day), 15 doses, First dose on Sat01/03/22 at 2100, Last dose on Sat01/08/22 at 1400 Antimicrobial Indications: Other Other Abx Indication: acute infected cholecystitis Start: 01-03-2022 End: 01-07-2022 take 1 tablet by mouth every eight hours metroNIDAZOLE (FLAGYL) 500 MG tablet Take 1 tablet by mouth every 8 hours for 2 days 6 tablet 0 01/05/2022 01/07/2022 Active Start: 01-02-2022 End: 01-03-2022 500 mg, IntraVENous, EVERY 8 HOURS, 3 doses, First dose on Sat01/02/22 at 1530, Last dose on Sat01/03/22 at 0730 Antimicrobial Indications: Surgical Prophylaxis nitroglycerin 0.4 mg sublingual tablet (15 sources) Nitrate Vasodilator nitroglyceri n sublingual (NITROQUICK) 0.4 mg SL tablet Dissolve 0.4 mg under the tongue every 5 minutes as needed. 0 Active Comment on above: Dissolve 0.4 mg unde r the tongue every 5 minutes as needed. ondansetron 4 mg oral tablet (9 sources) Serotonin-3 Receptor Antagonist Start: 01-05-2022 Ondansetron HCl - 4 MG Oral Tablet Quantity: 30 Refills: 0 Ordered: 05-Jan-2022 DO Start : 05-Jan-2022 Active Start: 01-05-2022 take 1 tablet by ana th once daily as needed for nausea ondansetron (ZOFRAN) 4 MG tablet Take 1 tablet by mouth daily as needed for Nausea or Vomiting 30 tablet 0 01/05/2022 Active prednisoLONE acetate 10 mg/ml ophthalmic suspension (3 sources) Corticosteroid Start: 02-07-2022 prednisoLONE A cetate 1 % Ophthalmic Suspension Quantity: 5 Refills: 0 Ordered: 07-Feb-2022 DO Start : 07-Feb-2022 Active predniSONE 20 mg oral tablet (3 sources) Start: 07-14-2022 predniSONE 20 MG Oral Tablet Quantity: 18 Refills: 0 Ordered: 14-Jul-2022 DO Start : 14-Jul-2022 Active 12 hr ranolazine 500 mg extended release oral tablet (1 source) Anti-anginal End: 05-31-2022 ranolazine ER (RANEXA) 500 mg 12 hr tablet Take 500 mg by mouth. 0 05/31/2022 Discontinued (Discontinued by another Health Care Provider) Comment on above: Take 500 mg by mouth . 20 ml ropivacaine hydrochloride 5 mg/ml injection (1 source) Amide Local Anesthetic Start: 05-31-2022 End: 05-31-2022 ropivacaine (PF) 5 mg/mL (0.5 %) 50 mg injection (NAROPIN) sertraline 50 mg oral tablet (20 sources) Serotonin Reuptake Inhibitor Start: 10-12-2021 Sertraline HCl - 50 MG Oral Tablet Quantity: 30 Refills: 0 Ordered: 12-Oct-2021 DO Start : 12-Oct-2021 [facility] Zoloft 25 MG 1 tablet Orally Once a day Active sertraline (Zolo ft) 50 mg tablet Take by mouth. 0 Active sodium bicarbonate 75 mEq in sodium chloride 0.45 % 1,000 mL infusion (1 source) Start: 01-03-2022 End: 01-04-2022 sodium bicarbonate 75 mEq in sodium chloride 0.45 % 1,000 mL infusion 1000 ml sodium chloride 9 mg /ml injection (5 sources) Start: 12-31-2021 sodium chlorid e flush 0.9 % injection 5-40 mL Start: 12-31-2021 End: 01-05-2022 0.9 % sodium chloride infusi on Start: 03-11-2020 0.9 % sodium c hloride infusion tamsulosin hydrochloride 0.4 mg oral capsule (10 sources) alpha-Adrenergic González Start: 03-21-2022 Tamsu losin HCl - 0.4 MG Oral Capsule Quantity: 14 Refills: 0 Ordered: 21-Mar-2022 DO Start : 21-Mar-2022 Active take 1 capsule by [facility] every twenty-four hours tamsulosin (Flomax) 0.4 mg 24 hr capsule Take by mouth. 0 Active tiZANidine 4 mg oral tablet (11 sources) Central alpha-2 Adrenergic Agonist Start: 11-13-2012 End: 04-12-2023 take 4 mg by mouth at bedtime Tizanidine Discontinued 4 MG PO Bedtime May 02, 2018 12:00am April 12, 2023 12:19pm ubrogepant 100 mg oral tablet (1 source) Start: 06-29-2021 End: 05-31-2022 take 2 tablets by mouth once daily as needed ubrogepant (UBRELVY) 100 mg tablet Take 0.5-1 tablets by mouth as needed (migraine). Can repeat dose in 2 hours. No more than 200 mg per day. 10 tablet 3 06/29/2021 05/31/2022 Discontinued (Other) Comment on above: Take 0.5-1 tablets b y mouth as needed (migraine). Can repeat dose in 2 hours. No more than 200 mg per day. Problems Active Problems Problem Classification Problem Date Documented Date Episodic/Chronic Abdominal hernia (19 sources) Hiatal hernia; Translations: [Diaphragmatic hernia without mention of obstruction or gangrene] Onset: 3 Episodic Abdominal pain (14 sources) Unspecified abdominal pain; Translations: [Left lower quadrant pain] Onset: 2 Episodic Acute and unspecified renal failure (16 sources) Injury of kidney; Translations: [Acute kidney failure, unspecified] Onset: 2 Episodic Acute posthemorrhagic anemia (1 source) Acute posthemorrhagic anemia; Translations: [Acute posthemorrhagic anemia] 07-01-2020 Episodic Allergic reactions (6 sources) Allergy status to penicillin; Translations: [Allergy status to other antibiotic agents status] Onset: 3 09-07-2022 Episodic Calculus of urinary tract (20 sources) Calcium renal calculus ; Translations: [History of calculus of kidney] Onset: 2 Episodic Cardiac dysrhythmias (20 sources) Paroxysmal atrial fibrillation; Translations: [Paroxysmal atrial fibrillation] Onset: 0 Chronic Cataract (16 sources) Nuclear sclerotic cataract; Translations: [Age-related nuclear cataract, left eye] Onset: 8 01-06-2020 Chronic Chronic kidney disease (20 sources) Chronic kidney disease stage 3; Translations: [Chronic kidney disease, stage 3 (moderate)] Onset: 1 Chronic Chronic kidney disease (3 sources) Chronic kidney disease; Translations: [Chronic kidney disease, stage 3 unspecified] Onset: 3 Complications of surgical procedures or medical care (12 sources) Hypoparathyroidism following procedure; 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] 10-13-2018 Chronic Complications of surgical procedures or medical care (11 sources) Postoperative seroma; Translations: [Postprocedural seroma of a circulatory system organ or structure following other procedure] Episodic Conditions associated with dizziness or vertigo (3 sources) Dizziness and giddiness; Translations: [Dizzy spells] Onset: 2 12-31-2022 Episodic Coronary atherosclerosis and other heart disease (20 sources) Atypical angina; 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 forms of angina pectoris] Onset: 1 12-14-2020 Chronic Digestive congenital anomalies (1 source) Esophageal web; 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] Onset: 3 Chronic Diverticulosis and diverticulitis (11 sources) Diverticulosis of small intestine; Translations: [Diverticulosis of small intestine without perforation or abscess without bleeding] Chronic Esophageal disorders (20 sources) Gastroesophageal reflux disease; Translations: [Gastro-esophageal reflux disease without esophagitis] Onset: 1 12-14-2020 Chronic Essential hypertension (20 sources) Essential (primary) hypertension; Translations: [Malignant hypertension] Onset: 9 01-06-2020 Chronic Essential hypertension (2 sources) Essential hypertension Onset: 9 Fluid and electrolyte disorders (15 sources) Dehydration; Translations: [Dehydration] Onset: 2 Episodic Gastroduodenal ulcer (except hemorrhage) (11 sources) Gastric ulcer without hemorrhage, without perforation AND without obstruction; Translations: [Gastric ulcer, unspecified as acute or chronic, without hemorrhage or perforation] Chronic Gastroduodenal ulcer (except hemorrhage) (14 sources) Acute gastric ulcer; Translations: [Acute gastric ulcer without hemorrhage or perforation] Onset: 2 Episodic Gastrointestinal hemorrhage (2 sources) Upper gastrointestinal bleeding; Translations: [Gastrointestinal hemorrhage, unspecified] 07-01-2020 Episodic Genitourinary symptoms and ill-defined conditions (11 sources) History of acute renal failure; Translations: [Personal history of other diseases of urinary system] Episodic Gout and other crystal arthropathies (20 sources) Chronic gouty arthritis; Translations: [Idiopathic chronic gout, multiple sites, without tophus (tophi)] Onset: 2 Chronic Headache; including migraine (20 sources) Migraine without aura, not refractory ; Translations: [Migraine without aura, not intractable, without status migrainosus] Onset: 0 01-06-2020 Chronic Headache; including migraine (11 sources) Headache disorder; 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 headache syndrome] Episodic Hypertension with complications and secondary hypertension (17 sources) Hypertensive renal disease; Translations: [Hypertensive chronic kidney disease with stage 1 through stage 4 chronic kidney disease, or unspecified chronic kidney disease] Onset: 3 09-07-2022 Chronic Menopausal disorders (1 source) Hormone replacement therapy; Translations: [HORMONE REPLACEMENT THERAPY] Onset: 3 Episodic Miscellaneous mental health disorders (1 source) Other somatoform disorders; Translations: [OTHER SOMATOFORM DISORDERS] Onset: 3 Chronic Nutritional deficiencies (11 sources) Vitamin D deficiency; Translations: [Vitamin D deficiency, unspecified] Chronic Osteoarthritis (12 sources) Osteoarthritis of elbow; Translations: [Primary osteoarthritis, right elbow] Onset: 3 Chronic Other aftercare (1 source) Other fpc (current) drug therapy; Translations: [OTH SULFATE DRIER MACHINE OPERATOR CURRENT DRUG THERAPY] Onset: 3 Episodic Other aftercare (1 source) 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; Translations: [SULFATE DRIER MACHINE OPERATOR CURRNT USE ANTICOAGULANTS] Onset: 3 Episodic Other aftercare (4 sources) care home (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 of aspirin; Translations: [SULFATE DRIER MACHINE OPERATOR CURRENT USE OF ASPIRIN] Onset: 3 Episodic Other aftercare (1 source) Patient encounter status; Translations: [care home (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 of antithrombotics/antiplat elets] 09-07-2022 Episodic Other aftercare (2 sources) Long-term current use of aspirin; Translations: [middle or intermediate school principal (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 of aspirin] 09-07-2022 Episodic Other and ill-defined heart disease (11 sources) Left ventricular hypertrophy; Translations: [Cardiomegaly] Chronic Other and unspecified benign neoplasm (1 source) Benign neoplasm of lymph nodes; Translations: [Benign neoplasm of lymph nodes] Onset: 3 Episodic Other and unspecified benign neoplasm (1 source) Mass of digestive structure; Translations: [Polyp of stomach and duodenum] 09-07-2022 Episodic Other circulatory disease (2 sources) Presence of other cardiac implants and grafts; Translations: [Presence of other cardiac implants and grafts] Onset: 3 Chronic Other circulatory disease (20 sources) H/O: hypertension; Translations: [Personal history of other diseases of circulatory system] Episodic Other circulatory disease (2 sources) History of transient ischemic attack; Translations: [Personal history of transient ischemic attack (TIA), and cerebral infarction without residual deficits] Onset: 2 Episodic Other circulatory disease (2 sources) History of cerebrovascular disease; Translations: [Personal history of transient ischemic attack (TIA), and cerebral infarction without residual deficits] 09-07-2022 Episodic Other circulatory disease (1 source) Low blood pressure; Translations: [Hypotension, unspecified] 07-01-2020 Episodic Other connective tissue disease (1 source) Presence of artificial knee joint, bilateral; Translations: [Presence of artificial knee joint, bilateral] Onset: 3 Chronic Other connective tissue disease (1 source) Artificial knee joint present; Translations: [Presence of artificial knee joint, bilateral] 10-17-2022 Chronic Other connective tissue disease (1 source) Arthrodesis status; Translations: [Arthrodesis status] Onset: 3 Episodic Other connective tissue disease (1 source) H/O: arthrodesis; Translations: [Arthrodesis status] 10-17-2022 Episodic Other diseases of kidney and ureters (11 sources) Secondary hyperparathyroidism; Translations: [Secondary hyperparathyroidism of renal origin] Chronic Other disorders of stomach and duodenum (1 source) Disorder of upper gastrointestinal tract; 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 diseases of stomach and duodenum] 09-07-2022 Episodic Other gastrointestinal disorders (17 sources) Dysphagia; Translations: [Dysphagia, pharyngoesophageal phase] 09-07-2022 Episodic Other gastrointestinal disorders (20 sources) Oropharyngeal dysphagia; Translations: [Dysphagia, oropharyngeal phase] Onset: 3 Episodic Other gastrointestinal disorders (11 sources) Difficulty swallowing solids; Translations: [Dysphagia, unspecified] Episodic Other gastrointestinal disorders (11 sources) Swallowing problem; Translations: [Dysphagia, unspecified] Episodic Other gastrointestinal disorders (11 sources) Abnormal deglutition; Translations: [Dysphagia, unspecified] Episodic Other gastrointestinal disorders (6 sources) H/O: abdominal hernia; Translations: [Personal history of other diseases of digestive system] Resolved: 3 Episodic Other gastrointestinal disorders (1 source) Other dysphagia; 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 dysphagia] Onset: 3 Episodic Other gastrointestinal disorders (5 sources) Diarrhea; Translations: [Diarrhea, unspecified] 01-31-2023 Episodic Other gastrointestinal disorders (7 sources) Diarrhea, unspecified; Translations: [Diarrhea, unspecified] Onset: 3 Episodic Other gastrointestinal disorders (2 sources) Aphagia; Translations: [Aphagia] Onset: 3 Episodic Other hereditary and degenerative nervous system conditions (20 sources) Restless legs; Translations: [Restless legs syndrome] Onset: 1 12-14-2020 Chronic Other hereditary and degenerative nervous system conditions (2 sources) Multi-system degeneration of the autonomic nervous system; Translations: [Multi-system degeneration of the autonomic nervous system] Onset: 3 Chronic Other injuries and conditions due to external causes (7 sources) Muscle strain; Translations: [Unspecified site of sprain and strain] Onset: 3 01-30-2023 Episodic Other liver diseases (2 sources) Jaundice; Translations: [Unspecified jaundice] Onset: 2 Episodic Other lower respiratory disease (11 sources) Dyspnea; Translations: [Shortness of breath] Episodic Other lower respiratory disease (2 sources) Apnea; Translations: [Apnea, not elsewhere classified] Onset: 2 Episodic Other nervous system disorders (10 sources) Chronic pain; 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 chronic pain] Chronic Other nervous system disorders (12 sources) Disorder of autonomic nervous system; Translations: [Disorder of the autonomic nervous system, unspecified] 12-31-2022 Chronic Other nervous system disorders (4 sources) Other chronic pain; Translations: [Chronic pain] Onset: 2 Resolved: 2 Chronic Other nervous system disorders (16 sources) Aphasia; Translations: [Aphasia] Onset: 3 Chronic Other nervous system disorders (2 sources) Aphasia; Translations: [APHASIA] Onset: 3 Chronic Other nervous system disorders (3 sources) Disorder of the autonomic nervous system, unspecified; Translations: [Autonomic dysfunction] Onset: 3 Chronic Other nervous system disorders (2 sources) Other disorders of autonomic nervous system; 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 disorders of autonomic nervous system] Onset: 3 Chronic Other nervous system disorders (11 sources) Paresthesia of lower extremity; Translations: [Paresthesia of skin] Episodic Other nervous system disorders (1 source) Skin sensation disturbance; Translations: [Unspecified disturbances of skin sensation] 02-25-2023 Episodic Other non-traumatic joint disorders (11 sources) Pain in elbow; Translations: [Pain in right elbow] Episodic Other nutritional; endocrine; and metabolic disorders (12 sources) Hypocalcemia; Translations: [Hypocalcemia] 10-13-2018 Chronic Other nutritional; endocrine; and metabolic disorders (4 sources) Hypocalcemia; Translations: [HYPOCALCEMIA] Onset: 2 Chronic Other nutritional; endocrine; and metabolic disorders (11 sources) H/O: endocrine disorder; Translations: [Personal history of other endocrine, nutritional and metabolic disease] Episodic Other upper respiratory disease (2 sources) Vocal cord paralysis; Translations: [Vocal fold paresis, unilateral] Chronic Other upper respiratory disease (11 sources) Disorder of vocal cord; Translations: [Paralysis of vocal cords and larynx, unspecified] Chronic Other upper respiratory disease (20 sources) Bilateral partial vocal cord paralysis; Translations: [Bilateral paralysis of vocal cords or larynx, partial] Onset: 3 01-30-2023 Chronic Other upper respiratory disease (6 sources) Paralysis of vocal cords and larynx, bilateral; Translations: [Paralysis of vocal cords and larynx, bilateral] Onset: 3 Chronic Other upper respiratory disease (1 source) Paralysis of larynx; Translations: [Paralysis of vocal cords and larynx, bilateral] 10-17-2022 Chronic Other upper respiratory disease (11 sources) Hoarse; Translations: [Dysphonia] Episodic Other upper respiratory disease (20 sources) Disorder of vocal cord; 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 diseases of vocal cords] Onset: 3 01-30-2023 Episodic Residual codes; unclassified (20 sources) Obstructive sleep apnea syndrome; Translations: [Obstructive sleep apnea (adult) (pediatric)] Onset: 1 12-14-2020 Chronic Residual codes; unclassified (5 sources) Obstructive sleep apnea (adult) (pediatric); Translations: [Obstructive sleep apnea (adult) (pediatric)] Onset: 3 Chronic Residual codes; unclassified (2 sources) Sleep apnea, unspecified; Translations: [Sleep apnea, unspecified] Onset: 3 Chronic Residual codes; unclassified (1 source) Dependence on other enabling machines and devices; Translations: [Dependence on other enabling machines and devices] Onset: 3 Chronic Residual codes; unclassified (1 source) Sleep apnea; Translations: [Sleep apnea, unspecified] 10-17-2022 Chronic Residual codes; unclassified (2 sources) Acquired absence of other specified parts of digestive tract; Translations: [ACQ ABSENCE OTH PART DIGESTV TRACT] Onset: 2 Episodic Residual codes; unclassified (19 sources) Other specified health status; Translations: [Difficulty with CPAP use] Onset: 3 Episodic Retinal detachments; defects; vascular occlusion; and retinopathy (20 sources) Detachment of retina of right eye; Translations: [Serous retinal detachment, right eye] Onset: 8 01-06-2020 Episodic Screening and history of mental health and substance abuse codes (6 sources) Personal history of nicotine dependence; Translations: [Personal history of tobacco use] Onset: 3 09-07-2022 Episodic Spondylosis; intervertebral disc disorders; other back problems (14 sources) Cervical spondylosis; Translations: [Spondylosis without myelopathy or radiculopathy, cervical region] Onset: 2 Resolved: 2 Chronic Thyroid disorders (20 sources) 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; Translations: [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, unspecified] Onset: 3 09-07-2022 Chronic Transient cerebral ischemia (20 sources) Transient cerebral ischemia; 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] Onset: 1 Chronic Unclassified (1 source) CONTACT W/AND (SUSP) EXPOS COVID-19; Translations: [CONTACT W/AND (SUSP) EXPOS COVID-19] Onset: 3 Unclassified (1 source) ELEV LVLS LIVER TRANSAMINASE LVLS; Translations: [ELEV LVLS LIVER TRANSAMINASE LVLS] Onset: 2 Unclassified (3 sources) Chronic atrial fibrillation, unspecified; Translations: [Chronic atrial fibrillation, unspecified] Onset: 3 Unclassified (1 source) Other specified disease of esophagus; 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 specified disease of esophagus] Onset: 3 Unclassified (1 source) Diarrhea, unspecified; Translations: [Diarrhea, unspecified] Onset: 3 Past or Other Problems Problem Classification Problem Date Documented Da te Episodic/Chronic Biliary tract disease (16 sources) Gallstone; Translations: [Calculus of gallbladder without cholecystitis without obstruction] Onset: 01-02-2022 05-31-2022 Episodic Diabetes mellitus without complication (4 sources) Hyperglycemia; Translations: [Hyperglycemia, unspecified] Onset: 01-01-2022 Episodic E Codes: Natural/environment (1 source) Other contact with dog, initial encounter; Translations: [OTHER CONTACT WITH DOG INITIAL ENC] Onset: 11-17-2021 Episodic Nausea and vomiting (3 sources) Nausea and vomiting; Translations: [Nausea with vomiting, unspecified] Onset: 01-01-2022 Episodic Nonspecific chest pain (13 sources) Chest pain; Translations: [Chest pain, unspecified] Onset: 03-22-2022 01-06-2020 Episodic Other aftercare (1 source) 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; Translations: [care home (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 of antithrombotics/ant iplatelets] Onset: 08-30-2022 Episodic Other and unspecified benign neoplasm (1 source) Polyp of stomach and duodenum; Translations: [Polyp of stomach and duodenum] Onset: 08-30-2022 Episodic Other circulatory disease (5 sources) Personal history of transient ischemic attack (TIA), and cerebral infarction without residual deficits; Translations: [Prsnl hx of TIA (TIA), and cereb infrc w/o resid deficits] Onset: 02-05-2022 Episodic Other connective tissue disease (3 sources) Pain in left foot; Translations: [PAIN IN LEFT FOOT] Onset: 11-16-2021 Episodic Other connective tissue disease (5 sources) Pain in right leg; Translations: [PAIN IN RIGHT LEG] Onset: 10-03-2021 Episodic Other connective tissue disease (1 source) Pain in left leg; Translations: [PAIN IN LEFT LEG] Onset: 10-05-2021 Episodic Other connective tissue disease (2 sources) Pain in left lower leg; Translations: [Pain in left lower leg] Onset: 09-11-2022 Episodic Other disorders of stomach and duodenum (1 source) Other diseases of stomach and duodenum; 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 diseases of stomach and duodenum] Onset: 09-13-2022 Episodic Other gastrointestinal disorders (2 sources) Other specified diseases of intestine; Translations: [OTHER SPECIFIED DISEASES INTESTINE] Onset: 01-01-2022 Episodic Other gastrointestinal disorders (6 sources) Dysphagia, oropharyngeal phase; Translations: [Dysphagia, oropharyngeal phase] Onset: 07-18-2022 Episodic Other gastrointestinal disorders (3 sources) Dysphagia, unspecified; Translations: [Dysphagia, unspecified] Onset: 08-30-2022 Episodic Other non-traumatic joint disorders (3 sources) Pain in left shoulder Onset: 08-03-2021 Resolved: 10-02-2021 Episodic Other upper respiratory disease (1 source) Other diseases of vocal cords; 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 diseases of vocal cords] Onset: 09-13-2022 Episodic Pancreatic disorders (not diabetes) (20 sources) Acute pancreatitis without necrosis or infection, unspecified; Translations: [Biliary acute pancreatitis without necrosis or infection] Onset: 12-31-2021 Episodic Septicemia (except in labor) (1 source) Sepsis, unspecified organism; Translations: [SEPSIS UNSPECIFIED ORGANISM] Onset: 01-02-2022 Episodic Superficial injury; contusion (1 source) Contusion of left lesser toe(s) without damage to nail, initial encounter; Translations: [CONTUS LT LESR TOES W/O DMG NL INIT] Onset: 11-17-2021 Episodic Syncope (2 sources) Syncope and collapse; Translations: [Syncope and collapse] Onset: 07-20-2022 Episodic Thyroid disorders (15 sources) Disorder of thyroid gland; Translations: [Disorder of thyroid, unspecified] Onset: 12-14-2020 12-14-2020 Episodic Urinary tract infections (1 source) Urinary tract infection, site not specified; Translations: [UTI SITE NOT SPECIFIED] Onset: 01-02-2022 Episodic NEGATED: Highlighted row has not occurred!Residual codes; unclassified (17 sources) Disease Episodic Results Test Name Value Interpretation Reference Range Facility 36on 04-26-2023 36 Sounds to be related to his autonomic dysfunction. Please let him know I discussed with Jackie. Recommend we try him on metoprolol, we can start low at 12.5mg BID, and uptitrate. If he does not tolerate it then we can try a different medication. [facility] 36 Hi! Trying to think of how to help Jamil. Do you think we should try to get Corlanor on board for him? Harriet [facility] 36on 04-24-2023 36 Jazzy, please let kasandra hanson know his loop recorder hasn't shown any alarms. We can try him on low dose metoprolol 12.5mg twice daily to see if this would help. I don't remember if he's tried metoprolol in the past or not. [facility] 36 Thank you! [facility] 36 Can we lower his thr eshold for alarms to be HR >130? [facility] 36on 04-23-2023 36 Can we lower his thr eshold for alarms to be HR >130? [facility] 36 Are you guys able to see if he's had any events on his LOOP? I didn't see anything in Evoke. [facility] Telephoneon 04-19-2023 Telephone [id number] Fr freda Antunez Jr. 1955 Date Provider Department [place] 04/19/2023 JAZZY DHILLON Family History Problem Relation Age of Onset Hypertension Mother Cancer Mother Stroke Mother Hypertension Father Aortic aneurysm Father Cancer Father Aortic aneurysm Paternal Grandfather Sudden Neg Hx Family Status - Relation Status Age at Mother Father Paternal Grandfather Neg Hx [facility] Julian 04-16-2023 L -------- -------- Specimen: [id number] Received: 04/16/23 Status: NIKHIL Dossowen Num: [id number] Spec Type: Surgical Subm Dr: Charlene Soria MD Tissues: A Colon Biopsy (RANDOM COLON BX) B Colon Biopsy (ASC POLYP) Procedures: HE/4, Gross/Micro L4/2 -------- Age/ Patient Sex Location Account Attending Physician -------- Yoli Antunez Jr 67/M [id number] Charlene Soria MD -------- SPEC NUM: [id number] RECD: 04/16/23 STATUS: NIKHIL BAUTISTA NUM: [id number] RENAN: 04/16/23- [facility] DR: Charlene Soria MD ENTERED: 04/16/23-1313 [facility] DR: [place] TYPE: Surgical DEPT: S ORDERED: HE/4, Gross/Micro L4/2 ORDERED: HE/4, Gross/Micro L4/2 Pathological Diagnosis A. Colon, Random Biopsies: Mild Increase In Intra-epithelial Lymphocytes, Suggestive Of Evolving/ Resolving Microscopic (Lymphocytic) Colitis. B. Polyp, Ascending Colon, Biopsy: Serrated Adenoma. - Negative For High Grade Dysplasia And Malignancy. Clinical Information Diarrhea, rule out microscopic colitis Gross Description A. Received in formalin labeled with the patient's name, date of and random colon biopsies are two martin tissues averaging 0.3 cm. Entirely submitted in one cassette labeled A1. B. Received in formalin labeled with the patient's name, date of and ascending colon polyp is one martin tissue measuring 0.4 x 0.2 x 0.2 cm admixed with fecal material. Entirely submitted in one cassette labeled B1. -------- Specimen: [id number] Received: 04/16/23 Status: NIKHIL Bautista Num: [id number] Spec Type: Surgical Subm Dr: Charlene Soria MD Tissues: A Colon Biopsy (RANDOM COLON BX) B Colon Biopsy (ASC POLYP) Procedures: HE/Ragini, Gross/Micro L4/2 -------- Patient: Yoli Antunez Jr [id number] (Continued) -------- Specimen: [id number] Received: 04/16/23 (Continued) Signed (signature on file) Dony Duenas MD 04/17/232228 -------- Specimen: [id number] Received: 04/16/23 Status: NIKHIL Bautista Num: [id number] Spec Type: Surgical Subm Dr: Charlene Soria MD Tissues: A Colon Biopsy (RANDOM COLON BX) B Colon Biopsy (ASC POLYP) Procedures: HE/4, Gross/Micro L4/2 -------- Patient: oFxjordiYoli Jr [id number] (Continued) -------- Specimen: [id number] Received: 04/16/23 (Continued) Microscopic Description A. Two H E slides reviewed. The microscopic examination confirms the diagnosis. B. Two H E slides reviewed. The microscopic examination confirms the diagnosis. CPT Codes 86900d0 -------- -------- Specimen: [id number] Received: 04/16/23 Status: NIKHIL Bautista Num: [id number] Spec Type: Surgical Subm Dr: Charlene Soria MD Tissues: A Colon Biopsy (RANDOM COLON BX) B Colon Biopsy (ASC POLYP) Procedures: HE/Ragini, Gross/Hilda L4/2 -------- Patient: Yoli Antunez Jr [id number] (Continued) -------- Signed (signature on file) Dony Duenas MD 04/17/232228 [facility] Office Visiton 04-03-2023 Follow-up visit [id number] Fr freda Antunez Jr. 1955 M Date Provider Department Center 04/03/2023 YANDEL VILLEGAS [facility] Family History Problem Relation Age of Onset Hypertension Mother Cancer Mother Stroke Mother Hypertension Father Aortic aneurysm Father Cancer Father Aortic aneurysm Paternal Grandfather Sudden Neg Hx Family Status - Relation Status Age at Mother Father Paternal Grandfather Neg Hx Level of Service:79318 [place] OFFICE/OUTPATIENT ESTABLISHED LOW MDM 20-29 MIN Reason for Visit and Comments: Atrial Fibrillation [80] Normal [facility] 36on 03-25-2023 36 Report left in your mailbox. Normal [facility] Patient Messageon 03-18-2023 Patient Message [id number] Fr freda Antunez Jr. 1955 M Date Provider Department [place] 03/18/2023 JACKIE HASTINGS [facility] [place] [facility] Family History Problem Relation Age of Onset Hypertension Mother Cancer Mother Stroke Mother Hypertension Father Aortic aneurysm Father Cancer Father Aortic aneurysm Paternal Grandfather Sudden Neg Hx Family Status - Relation Status Age at Mother Father Paternal Grandfather Neg Hx Normal [facility] APTTon 03-05-2023 ACTIVATED PARTIAL THROMBOPLASTIN TIME IN PPP BY COAGULATION ASSAY 33.2 Seconds Normal 25.0-35.0 [facility] Comment on above: Result Comment: Clin ical significance of the APTT is questionable in the presence of heparin. Performed By: #### L [id number] #### [facility] ([facility]) [address] [place] [address] CBC WITH AUTO DIFFERENTIALon 03-05-2023 Basophils (Bld) [#/Vol] 0.05 10*3/uL Normal 0.00-0.20 [facility] Comment on above: Performed By: #### L [id number] #### [facility] ([facility]) [address] [place] [address] Basophils/100 WBC (Bld) 0.6 % Normal 0.0-1.0 [facility] Comment on above: Performed By: #### L [id number] #### [facility] ([facility]) [address] [place] [address] Eosinophils (Bld) [#/Vol] 0.26 10*3/uL Normal 0.00-0.50 [facility] Comment on above: Performed By: #### L [id number] #### [facility] ([facility] [address] [place] [address] Eosinophils/100 WBC (Bld) 3.0 % Normal 0.0-6.0 [facility] Comment on above: Performed By: #### L [id number] #### [facility] ([facility]) [address] [place] [address] Erythrocyte distribution width (RBC) [Ratio] 14.6 % Normal 11.5-15.0 [facility] Comment on above: Performed By: #### L [id number] #### [facility] ([facility]) [address] [place] [address] ERYTHROCYTE MEAN CORPUSCULAR HEMOGLOBIN CONCENTRATION (G/DL) BY AUTOMATED 33.7 g/dL Normal 32.0-35.0 [facility] Comment on above: Performed By: #### L [id number] #### [facility] ([facility]) [address] [place] [address] Hematocrit (Bld) [Volume fraction] 39.8 % Normal 39.0-55.0 [facility] Comment on above: Performed By: #### L [id number] #### [facility] ([facility]) [address] [place] [address] Hemoglobin (Bld) [Mass/Vol] 13.4 g/dL Normal 13.0-17.0 [facility] Comment on above: Performed By: #### L [id number] #### [facility] ([facility]) [address] [place] [address] Immature granulocytes (Bld) [#/Vol] 0.05 10*3/uL Normal 0.00-0.20 [facility] Comment on above: Performed By: #### L [id number] #### [facility] ([facility] [address] [place] [address] Immature granulocytes/100 WBC (Bld) 0.6 % Normal 0.0-1.0 [facility] Comment on above: Performed By: #### L [id number] #### [facility] ([facility]) [address] [place] [address] Lymphocytes (Bld) [#/Vol] 2.42 10*3/uL Normal 1.20-4.00 [facility] Comment on above: Performed By: #### L [id number] #### [facility] ([facility]) [address] [place] [address] Lymphocytes/100 WBC (Bld) 27.8 % Normal 20.0-45.0 [facility] Comment on above: Performed By: #### L [id number] #### [facility] ([facility]) [address] [place] [address] MCH (RBC) [Entitic mass] 28.4 pg Normal 27.0-33.0 [facility] Comment on above: Performed By: #### L [id number] #### [facility] ([facility] [address] [place] [address] MCV (RBC) [Entitic vol] 84.3 fL Normal 82.0-98.0 [facility] Comment on above: Performed By: #### L [id number] #### [facility] ([facility]) [address] [place] [address] Monocytes (Bld) [#/Vol] 0.90 10*3/uL Normal 0.10-1.00 [facility] Comment on above: Performed By: #### L [id number] #### [facility] ([facility]) [address] [place] [address] Monocytes/100 WBC (Bld) 10.4 % Normal 5.0-12.0 [facility] Comment on above: Performed By: #### L [id number] #### [facility] ([facility]) [address] [place] [address] Neutrophils (Bld) [#/Vol] 5.01 10*3/uL Normal 1.60-7.60 [facility] Comment on above: Performed By: #### L [id number] #### [facility] ([facility]) [address] [place] [address] Neutrophils/100 WBC (Bld) 57.6 % Normal 40.0-72.0 [facility] Comment on above: Performed By: #### L [id number] #### [facility] ([facility]) [address] [place] [address] NRBC (PER 100 WBCS) BY AUTOMATED COUNT 0.0 % Normal 0 [facility] Comment on above: Performed By: #### L [id number] #### [facility] ([facility]) [address] [place] [address] PLATELETS (10*3/UL) IN BLOOD AUTOMATED COUNT 236 10*3/uL Normal 150-400 [facility] Comment on above: Performed By: #### L [id number] #### [facility] ([facility]) [address] [place] [address] RBC (Bld) [#/Vol] 4.72 10*6/uL Normal 4.20-5.70 [facility] Comment on above: Performed By: #### L [id number] #### [facility] ([facility]) [address] [place] [address] WBC (Bld) [#/Vol] 8.69 10*3/uL Normal 4.00-10.60 [facility] Comment on above: Performed By: #### L [id number] #### [facility] ([facility]) [address] [place] [address] COMPREHENSIVE METABOLIC PANE Julian 03-05-2023 Albumin [Mass/Vol] 4.7 g/dL Normal 3.5-5.7 [facility] Comment on above: Performed By: #### L [id number] #### [facility] ([facility]) [address] [place] [address] ALP [Catalytic activity/Vol] 69 U/L Normal 34-104 [facility] Comment on above: Performed By: #### L [id number] #### [facility] ([facility]) [address] [place] [address] ALT [Catalytic activity/Vol] 17 U/L Normal 7-52 [facility] Comment on above: Performed By: #### L [id number] #### [facility] ([facility]) [address] [place] [address] Anion gap [Moles/Vol] 15 mmol/L Normal 7-20 [facility] Comment on above: Performed By: #### L [id number] #### [facility] ([facility]) [address] [place] [address] AST [Catalytic activity/Vol] 19 U/L Normal 13-39 [facility] Comment on above: Performed By: #### L [id number] #### [facility] ([facility]) [address] [place] [address] Bilirubin [Mass/Vol] 0.4 mg/dL Normal 0.3-1.0 [facility] Comment on above: Performed By: #### L [id number] #### [facility] ([facility]) [address] [place] [address] Calcium [Mass/Vol] 7.6 mg/dL Low 8.6-10.3 [facility] Comment on above: Performed By: #### L [id number] #### [facility] ([facility]) [address] [place] [address] Chloride [Moles/Vol] 105 mmol/L Normal 98-107 [facility] Comment on above: Performed By: #### L [id number] #### [facility] ([facility]) [address] [place] [address] CO2 [Moles/Vol] 23 mmol/L Normal 21-31 [facility] Comment on above: Performed By: #### L [id number] #### [facility] ([facility]) [address] [place] [address] Creatinine [Mass/Vol] 1.32 mg/dL High 0.70-1.30 [facility] Comment on above: Performed By: #### L [id number] #### [facility] ([facility]) [address] [place] [address] GLOMERULAR FILTRATION RATE ML/MIN/1.73 SQ M.PREDICTED 58.4 mL/min/1.73m*2 Low >60.0 [facility] Comment on above: Result Comment: [facility]???s estimated glomerular filtration rate (eGFR) will no longer include consideration of race in its calculation. The [employer]???s eGFR Task Force developed new recommendations for the estimation of the glomerular filtration rate in the [place] They recommend immediate implementation of the new equation refit without the race variable in all laboratories because the calculation does not include race. In addition to not including race in the calculation and reporting, it included diversity in its development, and has acceptable performance characteristics and potential consequences that do not disproportionately affect any one group of individuals. Performed By: #### L [id number] #### [facility] ([facility]) [address] [place] [address] Glucose [Mass/Vol] 95 mg/dL Normal 70-100 [facility] Comment on above: Performed By: #### L [id number] #### [facility] ([facility]) [address] [place] [address] Potassium [Moles/Vol] 3.8 mmol/L Normal 3.5-5.1 [facility] Comment on above: Performed By: #### L [id number] #### [facility] ([facility]) [address] [place] [address] Protein [Mass/Vol] 7.3 g/dL Normal 6.0-8.3 [facility] Comment on above: Performed By: #### L [id number] #### [facility] ([facility]) [address] [address] Sodium [Moles/Vol] 139 mmol/L Normal 136-145 [facility] Comment on above: Performed By: #### L [id number] #### [facility] ([facility]) [address] [place] [address] Urea nitrogen [Mass/Vol] 23 mg/dL Normal 7-25 [facility] Comment on above: Performed By: #### L [id number] #### [facility] ([facility]) [address] [place] [address] UREA NITROGEN/CREATININE (MASS RATIO) IN SER/PLAS 17.[address] [facility] Comment on above: Performed By: #### L [id number] #### [facility] ([facility]) [address] [place] [address] CT BRAIN PERFUSIONon 023 CT BRAIN PERFUSION CTA HEAD W AND WO IV CONTRAST, CTA NECK W AND WO IV CONTRAST, CT BRAIN PERFUSION 03/05/2023 5:01 PM INDICATION: Stroke, trouble speaking COMPARISON: None TECHNIQUE: 1.CT images of the head and neck were obtained following the administration intravenous contrast. 3-D images were also post processed at a separate workstation to further define anatomy and potential pathology. All CT scans at this facility use dose modulation, iterative reconstruction, and/or weight based dosing when appropriate to reduce radiation dose to as low as reasonably achievable. 2.Contrast-enhanced CT perfusion images were obtained. 3-D images were postprocessed on a separate workstation. FINDINGS: CTA NECK ARTERIAL VASCULATURE: Aorta: There is classic aortic arch branching. Subclavians: Subclavian arteries are patent. Right Carotid: Common carotid artery is patent without significant stenosis. Mild atheromatous disease of the carotid bifurcation without significant stenosis. The external carotid artery is patent. Mild atheromatous disease of the proximal internal carotid artery without associated significant stenosis. Left Carotid: Common carotid artery is patent without significant stenosis. The carotid bifurcation is patent. The external carotid artery is patent. The internal carotid artery demonstrates a normal course and caliber. Right Vertebral: Mild atheromatous disease at origin with mild associate stenosis. Left Vertebral: Mild atheromatous disease at origin with mild associate stenosis. CTA HEAD ARTERIAL VASCULATURE: Vertebrobasilar: The distal vertebral and basilar arteries are patent. Posterior Cerebral: Patent without significant stenosis. Internal Carotids: Mild atheromatous disease bilaterally with mild associated stenosis. Anterior Cerebral: Patent without significant stenosis. Middle Cerebral: Patent without significant stenosis. Other: No aneurysm or malformation. SURROUNDING STRUCTURES VENOUS VASCULATURE: Visualized major dural venous sinuses are patent. BRAIN: No mass effect or midline shift. No hydrocephalus. SOFT TISSUES: Visualized neck soft tissues are unremarkable. LUNG APICES: Calcified nodule of right upper lung. OSSEOUS STRUCTURES: Unremarkable. CT PERFUSION: Appropriate CT attenuation occurs. Mild motion. Appropriately located arterial and venous boxes. No significant perfusion abnormality. Slightly elevated Tmax greater than 4 seconds within the right occipital lobe favored to be artifactual. CBF<30% volume: 0 mL Tmax>6.0s volume: 0 mL Mismatch volume: 0 mL Mismatch ratio: none IMPRESSION: 1.Patent head and neck arterial vasculature with mild atheromatous disease. No definite large vessel occlusion. 2.No definite perfusion abnormality suspicious for significant ischemia. If there is further clinical concern follow-up with MRI brain recommended. Electronically signed: Damian Collier. Normal [facility] CT HEAD WO IV CONTRASTon CT HEAD WO IV CONTRAST CT HEAD WO IV CONTRAST 03/05/2023 5:01 PM INDICATION: Stroke COMPARISON: CT head 05/23/2022 TECHNIQUE: Noncontrast CT images of the head were obtained. FINDINGS: BRAIN: No intraparenchymal or extra-axial hemorrhage. Patent basal cisterns. No mass effect or midline shift. Lind-white differentiation is preserved. VENTRICLES: No hydrocephalus. VASCULATURE: No hyperdense major artery or major dural venous sinus. PARANASAL SINUSES: Visualized paranasal sinuses are well-aerated. TEMPORAL BONE: Well-aerated middle ears and visualized mastoid air cells. ORBITS: Similar postsurgical changes of the left globe. SOFT TISSUES: The visualized head and neck soft tissues are unremarkable. OSSEOUS STRUCTURES: No displaced facture. Unremarkable skull base. IMPRESSION: No definite acute intracranial abnormality. Electronically signed: Damian Collier. Normal [facility] CTA HEAD W AND WO IV CONTRAS Ton 03-05-2023 CTA HEAD W AND WO IV CONTRAST CTA HEAD W AND WO IV CONTRAST, CTA NECK W AND WO IV CONTRAST, CT BRAIN PERFUSION 03/05/2023 5:01 PM INDICATION: Stroke, trouble speaking COMPARISON: None TECHNIQUE: 1.CT images of the head and neck were obtained following the administration intravenous contrast. 3-D images were also post processed at a separate workstation to further define anatomy and potential pathology. All CT scans at this facility use dose modulation, iterative reconstruction, and/or weight based dosing when appropriate to reduce radiation dose to as low as reasonably achievable. 2.Contrast-enhanced CT perfusion images were obtained. 3-D images were postprocessed on a separate workstation. FINDINGS: CTA NECK ARTERIAL VASCULATURE: Aorta: There is classic aortic arch branching. Subclavians: Subclavian arteries are patent. Right Carotid: Common carotid artery is patent without significant stenosis. Mild atheromatous disease of the carotid bifurcation without significant stenosis. The external carotid artery is patent. Mild atheromatous disease of the proximal internal carotid artery without associated significant stenosis. Left Carotid: Common carotid artery is patent without significant stenosis. The carotid bifurcation is patent. The external carotid artery is patent. The internal carotid artery demonstrates a normal course and caliber. Right Vertebral: Mild atheromatous disease at origin with mild associate stenosis. Left Vertebral: Mild atheromatous disease at origin with mild associate stenosis. CTA HEAD ARTERIAL VASCULATURE: Vertebrobasilar: The distal vertebral and basilar arteries are patent. Posterior Cerebral: Patent without significant stenosis. Internal Carotids: Mild atheromatous disease bilaterally with mild associated stenosis. Anterior Cerebral: Patent without significant stenosis. Middle Cerebral: Patent without significant stenosis. Other: No aneurysm or malformation. SURROUNDING STRUCTURES VENOUS VASCULATURE: Visualized major dural venous sinuses are patent. BRAIN: No mass effect or midline shift. No hydrocephalus. SOFT TISSUES: Visualized neck soft tissues are unremarkable. LUNG APICES: Calcified nodule of right upper lung. OSSEOUS STRUCTURES: Unremarkable. CT PERFUSION: Appropriate CT attenuation occurs. Mild motion. Appropriately located arterial and venous boxes. No significant perfusion abnormality. Slightly elevated Tmax greater than 4 seconds within the right occipital lobe favored to be artifactual. CBF<30% volume: 0 mL Tmax>6.0s volume: 0 mL Mismatch volume: 0 mL Mismatch ratio: none IMPRESSION: 1.Patent head and neck arterial vasculature with mild atheromatous disease. No definite large vessel occlusion. 2.No definite perfusion abnormality suspicious for significant ischemia. If there is further clinical concern follow-up with MRI brain recommended. Electronically signed: Damian Collier. Normal [facility] CTA NECK W AND WO IV CONTRAS Ton 03-05-2023 CTA NECK W AND WO IV CONTRAST CTA HEAD W AND WO IV CONTRAST, CTA NECK W AND WO IV CONTRAST, CT BRAIN PERFUSION 03/05/2023 5:01 PM INDICATION: Stroke, trouble speaking COMPARISON: None TECHNIQUE: 1.CT images of the head and neck were obtained following the administration intravenous contrast. 3-D images were also post processed at a separate workstation to further define anatomy and potential pathology. All CT scans at this facility use dose modulation, iterative reconstruction, and/or weight based dosing when appropriate to reduce radiation dose to as low as reasonably achievable. 2.Contrast-enhanced CT perfusion images were obtained. 3-D images were postprocessed on a separate workstation. FINDINGS: CTA NECK ARTERIAL VASCULATURE: Aorta: There is classic aortic arch branching. Subclavians: Subclavian arteries are patent. Right Carotid: Common carotid artery is patent without significant stenosis. Mild atheromatous disease of the carotid bifurcation without significant stenosis. The external carotid artery is patent. Mild atheromatous disease of the proximal internal carotid artery without associated significant stenosis. Left Carotid: Common carotid artery is patent without significant stenosis. The carotid bifurcation is patent. The external carotid artery is patent. The internal carotid artery demonstrates a normal course and caliber. Right Vertebral: Mild atheromatous disease at origin with mild associate stenosis. Left Vertebral: Mild atheromatous disease at origin with mild associate stenosis. CTA HEAD ARTERIAL VASCULATURE: Vertebrobasilar: The distal vertebral and basilar arteries are patent. Posterior Cerebral: Patent without significant stenosis. Internal Carotids: Mild atheromatous disease bilaterally with mild associated stenosis. Anterior Cerebral: Patent without significant stenosis. Middle Cerebral: Patent without significant stenosis. Other: No aneurysm or malformation. SURROUNDING STRUCTURES VENOUS VASCULATURE: Visualized major dural venous sinuses are patent. BRAIN: No mass effect or midline shift. No hydrocephalus. SOFT TISSUES: Visualized neck soft tissues are unremarkable. LUNG APICES: Calcified nodule of right upper lung. OSSEOUS STRUCTURES: Unremarkable. CT PERFUSION: Appropriate CT attenuation occurs. Mild motion. Appropriately located arterial and venous boxes. No significant perfusion abnormality. Slightly elevated Tmax greater than 4 seconds within the right occipital lobe favored to be artifactual. CBF<30% volume: 0 mL Tmax>6.0s volume: 0 mL Mismatch volume: 0 mL Mismatch ratio: none IMPRESSION: 1.Patent head and neck arterial vasculature with mild atheromatous disease. No definite large vessel occlusion. 2.No definite perfusion abnormality suspicious for significant ischemia. If there is further clinical concern follow-up with MRI brain recommended. Electronically signed: Damian Collier. [facility] EDPROVon 03-05-2023 EDPROV HPI Chief Complaint Patient presents with Unable to speak Patient dropped off from clinic with no report - Aphasic patient - onset was while in clinic. Initial evaluation completed by Dr. Bender at 4:50 PM. Yoli Tera Antunez Jr. is a 67 y/o male presenting to the ED with c/o aphasia. The clinic reports that the pt had an onset of aphasia, while at the clinic. The reports chest pain, dizziness, and numbness in his right hand. He denies nausea and fever. The pt notes a previous Hx of this before and notes that it went away within 12 hours. History provided by: Patient Unable to speak Severity: Severe Onset quality: Sudden Duration: 20 minutes Timing: Constant Chronicity: New Associated symptoms: chest pain Associated symptoms: no congestion, no cough, no fever, no myalgias, no nausea, no shortness of breath and no vomiting [place] Coma Scale Score: 15 Patient History Past Medical History: Diagnosis Date Arrhythmia Atrial fibrillation (CMS/HCC) Chronic kidney disease stage 3 b Coronary artery disease Disease of thyroid gland Hypertension Pancreatitis, gallstone TIA (transient ischemic attack) Past Surgical History: Procedure Laterality Date APPENDECTOMY ATRIAL ABLATION SURGERY flutter and fib ablation BACK SURGERY CARDIAC CATHETERIZATION CHOLECYSTECTOMY CTA CHEST W AND/OR WO IV CONTRAST 07/22/2020 CT CHEST ANGIOGRAM W AND/OR WO IV CONTRAST AHMADI CONVERSION CTA CHEST W AND/OR WO IV CONTRAST 08/30/2020 CT CHEST ANGIOGRAM W AND/OR WO IV CONTRAST AHMADI CONVERSION CTA CHEST W AND/OR WO IV CONTRAST 08/24/2021 CT CHEST ANGIOGRAM W AND/OR WO IV CONTRAST 08/24/2021 CTA CHEST W AND/OR WO IV CONTRAST 07/06/2021 CT CHEST ANGIOGRAM W AND/OR WO IV CONTRAST 07/06/2021 CTA CHEST W AND/OR WO IV CONTRAST 06/20/2017 CT CHEST ANGIOGRAM W AND/OR WO IV CONTRAST 06/20/2017 MRA HEAD WO IV CONTRAST 07/09/2022 MR HEAD ANGIO WO IV CONTRAST 07/09/2022 [facility] MR IMAGING MRA NECK WO IV CONTRAST 07/09/2022 MR NECK ANGIO WO IV CONTRAST 07/09/2022 [facility] MR IMAGING NECK SURGERY THYROIDECTOMY Family History Problem Relation Name Age of Onset Hypertension Mother Mother Cancer Mother Mother Stroke Mother Mother Hypertension Father Father Aortic aneurysm Father Father Cancer Father Father Aortic aneurysm Paternal Grandfather Sudden Neg Hx Social History Tobacco Use Smoking status: Former Packs/day: 1.00 Years: 16.00 Pack years: 16.00 Types: Cigarettes, Cigars Start date: 1967 Quit date: 1983 Years since quittin.8 Smokeless tobacco: Former Types: Chew Quit date: 1983 Vaping Use Vaping Use: Never used Substance Use Topics Alcohol use: Yes Alcohol/week: 1.0 standard drink of alcohol Types: 1 Cans of beer per week Comment: occasional Drug use: Never Review of Systems Review of Systems Constitutional: Negative for chills and fever. HENT: Negative for congestion and ear discharge. Eyes: Negative for discharge and redness. Respiratory: Negative for cough and shortness of breath. Cardiovascular: Positive for chest pain. Negative for palpitations. Gastrointestinal: Negative for nausea and vomiting. Genitourinary: Negative for difficulty urinating and flank pain. Musculoskeletal: Negative for arthralgias and myalgias. Skin: Negative for color change and wound. Neurological: Positive for dizziness, speech difficulty and numbness (right hand). Physical Exam ED Triage Vitals Temp Heart Rate Resp BP 03/05/23 1644 03/05/23 1644 03/05/23 1644 03/05/23 1644 36.8 ???C (98.2 ???F) 71 18 132/87 SpO2 Temp Source Heart Rate Source Patient Position 03/05/23 1644 03/05/23 1644 03/05/23 1644 03/05/23 1644 99 % Oral Monitor Sitting BP Location FiO2 (%) 03/05/23 1644 -- Left arm Physical Exam Constitutional: General: He is not in acute distress. HENT: Head: Normocephalic and atraumatic. Right Ear: External ear normal. Left Ear: External ear normal. Nose: Nose normal. No congestion. Mouth/Throat: Mouth: Mucous membranes are moist. Pharynx: Oropharynx is clear. Eyes: General: Right eye: No discharge. Left eye: No discharge. Conjunctiva/sclera: Conjunctivae normal. Cardiovascular: Rate and Rhythm: Normal rate and regular rhythm. Pulses: Normal pulses. Heart sounds: No murmur heard. Pulmonary: Effort: Pulmonary effort is normal. No respiratory distress. Abdominal: Palpations: Abdomen is soft. Tenderness: There is no abdominal tenderness. Musculoskeletal: General: Normal range of motion. Cervical back: Normal range of motion and neck supple. Right lower leg: No edema. Left lower leg: No edema. Skin: General: Skin is warm. Findings: No rash. Neurological: General: No focal deficit present. Mental Status: He is alert and oriented to person, place, and time. Motor: Motor function is intact. Comments: Decreased sensation in right arm Slightly ataxic with standin (more content not included)... Normal [facility] EDPROV HPI Chief Complaint Patient presents with ??? Unable to speak Patient dropped off from clinic with no report - Aphasic patient - onset was while in clinic. Initial evaluation completed by Dr. Bender at 4:50 PM. Yoli Haley Foxjordi Isidro is a 67 y/o male presenting to the ED with c/o aphasia. The clinic reports that the pt had an onset of aphasia, while at the clinic. The reports chest pain, dizziness, and numbness in his right hand. He denies nausea and fever. The pt notes a previous Hx of this before and notes that it went away within 12 hours. History provided by: Patient Unable to speak Severity: Severe Onset quality: Sudden Duration: 20 minutes Timing: Constant Chronicity: New Associated symptoms: chest pain Associated symptoms: no congestion, no cough, no fever, no myalgias, no nausea, no shortness of breath and no vomiting [place] Coma Scale Score: 15 Patient History Past Medical History: Diagnosis Date ??? Arrhythmia ??? Atrial fibrillation (CMS/HCC) ??? Chronic kidney disease stage 3 b ??? Coronary artery disease ??? Disease of thyroid gland ??? Hypertension ??? Pancreatitis, gallstone ??? TIA (transient ischemic attack) Past Surgical History: Procedure Laterality Date ??? APPENDECTOMY ??? ATRIAL ABLATION SURGERY flutter and fib ablation ??? BACK SURGERY ??? CARDIAC CATHETERIZATION ??? CHOLECYSTECTOMY ??? CTA CHEST W AND/OR WO IV CONTRAST 07/22/2020 CT CHEST ANGIOGRAM W AND/OR WO IV CONTRAST AHMADI CONVERSION ??? CTA CHEST W AND/OR WO IV CONTRAST 08/30/2020 CT CHEST ANGIOGRAM W AND/OR WO IV CONTRAST AHMADI CONVERSION ??? CTA CHEST W AND/OR WO IV CONTRAST 08/24/2021 CT CHEST ANGIOGRAM W AND/OR WO IV CONTRAST 08/24/2021 ??? CTA CHEST W AND/OR WO IV CONTRAST 07/06/2021 CT CHEST ANGIOGRAM W AND/OR WO IV CONTRAST 07/06/2021 ??? CTA CHEST W AND/OR WO IV CONTRAST 06/20/2017 CT CHEST ANGIOGRAM W AND/OR WO IV CONTRAST 06/20/2017 ??? MRA HEAD WO IV CONTRAST 07/09/2022 MR HEAD ANGIO WO IV CONTRAST 07/09/2022 [facility] MR IMAGING ??? MRA NECK WO IV CONTRAST 07/09/2022 MR NECK ANGIO WO IV CONTRAST 07/09/2022 [facility] MR IMAGING ??? NECK SURGERY ??? THYROIDECTOMY Family History Problem Relation Name Age of Onset ??? Hypertension Mother Mother ??? Cancer Mother Mother ??? Stroke Mother Mother ??? Hypertension Father Father ??? Aortic aneurysm Father Father ??? Cancer Father Father ??? Aortic aneurysm Paternal Grandfather ??? Sudden Neg Hx Social History Tobacco Use ??? Smoking status: Former Packs/day: 1.00 Years: 16.00 Pack years: 16.00 Types: Cigarettes, Cigars Start date: 1967 Quit date: 1983 Years since quittin.8 ??? Smokeless tobacco: Former Types: Chew Quit date: 1983 Vaping Use ??? Vaping Use: Never used Substance Use Topics ??? Alcohol use: Yes Alcohol/week: 1.0 standard drink of alcohol Types: 1 Cans of beer per week Comment: occasional ??? Drug use: Never Review of Systems Review of Systems Constitutional: Negative for chills and fever. HENT: Negative for congestion and ear discharge. Eyes: Negative for discharge and redness. Respiratory: Negative for cough and shortness of breath. Cardiovascular: Positive for chest pain. Negative for palpitations. Gastrointestinal: Negative for nausea and vomiting. Genitourinary: Negative for difficulty urinating and flank pain. Musculoskeletal: Negative for arthralgias and myalgias. Skin: Negative for color change and wound. Neurological: Positive for dizziness, speech difficulty and numbness (right hand). Physical Exam ED Triage Vitals Temp Heart Rate Resp BP 03/05/23 1644 03/05/23 1644 03/05/23 1644 03/05/23 1644 36.8 ???C (98.2 ???F) 71 18 132/87 SpO2 Temp Source Heart Rate Source Patient Position 03/05/23 1644 03/05/23 1644 03/05/23 1644 03/05/23 1644 99 % Oral Monitor Sitting BP Location FiO2 (%) 03/05/23 1644 -- Left arm Physical Exam Constitutional: General: He is not in acute distress. HENT: Head: Normocephalic and atraumatic. Right Ear: External ear normal. Left Ear: External ear normal. Nose: Nose normal. No congestion. Mouth/Throat: Mouth: Mucous membranes are moist. Pharynx: Oropharynx is clear. Eyes: General: Right eye: No discharge. Left eye: No discharge. Conjunctiva/sclera: Conjunctivae normal. Cardiovascular: Rate and Rhythm: Normal rate and regular rhythm. Pulses: Normal pulses. Heart sounds: No murmur heard. Pulmonary: Effort: Pulmonary effort is normal. No respiratory distress. Abdominal: Palpations: Abdomen is soft. Tenderness: There is no abdominal tenderness. Musculoskeletal: General: Normal range of motion. Cervical back: Normal range of motion and neck supple. Right lower leg: No edema. Left lower leg: No edema. Skin: General: Skin is warm. Findings: No rash. Neurological: General: No focal deficit present. Mental Status: He is alert and lizzy (more content not included)... Invalid Interpretation Code [facility] Office Visiton 03-05-2023 Follow-up visit [id number] Fr freda Antunez Jr. 1955 M Date Provider Department Center 03/05/2023 JACKIE HASTINGS [facility] Family History Problem Relation Age of Onset Hypertension Mother Cancer Mother Stroke Mother Hypertension Father Aortic aneurysm Father Cancer Father Aortic aneurysm Paternal Grandfather Sudden Neg Hx Family Status - Relation Status Age at Mother Father Paternal Grandfather Neg Hx Level of Service:99913 [place] OFFICE/OUTPATIENT ESTABLISHED MOD MDM 30-39 MIN Reason for Visit and Comments: Follow-up [329501] Normal [facility] POCT GLUCOSE METER UNSOLICIT ED RESULTSon 03-05-2023 Glucose [Mass/Vol] 96 mg/dL Normal 70-105 [facility] Comment on above: Order Comment: Waive d Testing in the ED is performed under the ED CLIA certificate #[id number]. Result Comment: vbei lfu Performed By: #### L [id number] ####[facility] ([facility])[address] [place] [address] PROTIME-INRon 03-05-2023 INR IN PPP BY COAGULATION ASSAY 0.98 Normal 0.90-1.10 [facility] Comment on above: Result Comment: [facility] P RECOMMENDED INR FOR WARFARIN THERAPY CONDITION INR PROPHYLAXIS OF VENOUS THROMBOSIS 2-3 (HIGH-RISK SURGERY) TREATMENT OF VENOUS THROMBOSIS 2-3 TREATMENT OF PULMONARY EMBOLISM 2-3 PREVENTION OF SYSTEMIC EMBOLISM: 2-3 ACUTE MYOCARDIAL INFARCTION TISSUE HEART VALVES VALVULAR HEART DISEASE ATRIAL FIBRILLATION RECURRENT SYSTEMIC EMBOLISM MECHANICAL HEART VALVE 2.5-3.5 FROM: ORAL ANTICOAGULANTS. MECHANISM OF ACTION, CLINICAL EFFECTIVENESS, AND OPTIMAL THERAPEUTIC RANGE. CHEST 1995;108:[id number]-246S. Performed By: #### L [id number] #### [facility] ([facility]) [address] [place] [address] PROTHROMBIN TIME (PT) IN PPP BY COAGULATION ASSAY 13.0 Seconds Normal 12.3-14.8 [facility] Comment on above: Performed By: #### L [id number] #### [facility] ([facility]) [address] [place] [address] TROPONIN Ion 03-05-2023 Troponin I.cardiac [Mass/Vol] 0.00 ng/mL Normal 0.00-0.04 [facility] Comment on above: Performed By: #### L [id number] #### [facility] ([facility]) [address] [place] [address] CNPLaura 02-05-2023 NEETUN Telephone ([facility]) YOLI ANTUNEZ ([id number]) 1955 M Date Time Provider Department 02/05/23 MARÍA PEARL During your visit today, we recorded the following information about you: RonceverteAydee 02/05/2023 12:07 PM Signed Scanned in results from [facility] for review Shivani Ambriz RN 02/05/2023 12:49 PM Signed Copper: YAMILA Carnes, RN Shivani Ambriz RN 02/05/2023 1:01 PM Signed María Pearl APRN.ADMINISTRATIVE DIRECTOR You 7 minutes ago (12:52 PM) This is a normal result. [place] YAMILA Carnes, RN Allergies As of Date: 02/05/2023 Noted Allergy Reaction PENICILLINS 09/12/2000 16 - Unknown TIKOSYN (DOFETILIDE) 07/26/2022 14 - Other: See Comments Comments: Aphasia, dizzy, muscle cramps VANCOMYCIN 07/26/2022 10 - Anaphylaxis Date Reviewed: 01/24/2023 Reviewed by: Peggy Bravo, RN - Fully Assessed Reason for Visit: Results [95] Cmt: [facility] Prescriptions as of 02/05/2023 - benazepril (LOTENSIN) 5 mg tablet - ergocalciferol 50,000 unit capsule (VITAMIN D2, DRISDOL) Take 50,000 Units by mouth one time a week. - calcium carbonate 500 mg calcium (1,250 mg) chewable tablet Take 1 tablet by mouth once daily. - calcitriol (ROCALTROL) 0.25 mcg capsule Take 0.25 mcg by mouth once daily. - aspirin, enteric coated (ASPIRIN, ENTERIC COATED) 81 mg EC tablet Take 81 mg by mouth once daily. - benazepril (LOTENSIN) 10 mg tablet Take 1 tablet by mouth once daily. - dilTIAZem HCl 360 mg 24 hr tablet Take 1 tablet by mouth once daily. - nitroglycerin sublingual (NITROQUICK) 0.4 mg SL tablet Dissolve 0.4 mg under the tongue every 5 minutes as needed. - levothyroxine (LEVOXYL) 175 mcg tablet Take 1 tablet by mouth daily before breakfast. - pramipexole (MIRAPEX) 1 mg tablet Take 2 mg by mouth daily at bedtime. Problem List As Of Date 02/05/2023 Noted Resolved TENSION HEADACHE [G44.209] Retinal detachment, left [H33.22] 10/07/2017 Total retinal detachment of left eye [H33.052] 10/07/2017 Nuclear sclerotic cataract, left [H25.12] 10/07/2017 Persistent atrial fibrillation (HCC) [I48.19] 12/13/2020 Atrial flutter (HCC) [I48.92] 12/14/2020 Primary hypertension [I10] 12/14/2020 CAD (coronary artery disease) [I25.10] 12/14/2020 CKD (chronic kidney disease) [N18.9] 12/14/2020 ADA (obstructive sleep apnea) [G47.33] 12/14/2020 TIA (transient ischemic attack) [G45.9] 12/14/2020 Thyroid disease [E07.9] 12/14/2020 GERD (gastroesophageal reflux disease) [K21.9] 12/14/2020 Restless leg [G25.81] 12/14/2020 Calculus of gallbladder [K80.20] 01/02/2022 Idiopathic acute pancreatitis without infection*01/02/2022 Chronic migraine without aura, with intractable*05/31/2022 Encounter Status:Closed by SHIVANI AMBRIZ on 02/05/23 Normal [facility] CT ABDOMEN PELVIS W IV CONTR Adalgisa 02-01-2023 CT ABDOMEN PELVIS W IV CONTRAST Interpreted By: Renaldo Conrad, STUDY: CT ABDOMEN PELVIS W IV CONTRAST; 02/01/2023 2:11 pm INDICATION: Signs/Symptoms:worsening LLQ abdominal pain and watery diarrhea. COMPARISON: None. ACCESSION NUMBER(S): [id number] ORDERING CLINICIAN: YOSSI CHEN TECHNIQUE: CT of the abdomen and pelvis was performed. Standard contiguous axial images were obtained at 3 mm slice thickness through the abdomen and pelvis. Coronal and sagittal reconstructions at 3 mm slice thickness were performed. 75 ml of contrast were administered intravenously without immediate complication. FINDINGS: LOWER CHEST: Bibasal atelectasis ABDOMEN: LIVER: Normal in size. Normal contour. Few tiny hypodensities in segment 2 and segment 4B that are too small to be characterized however likely benign/cysts. BILE DUCTS: No intrahepatic biliary dilatation. GALLBLADDER: Cholecystectomy. PANCREAS: The pancreas appears unremarkable without evidence of ductal dilatation or masses. SPLEEN: Scattered calcific granulomas ADRENAL GLANDS: No nodules. KIDNEYS AND URETERS: The kidneys are normal in size and enhance symmetrically. No hydroureteronephrosis or nephroureterolithiasis is identified. Few bilateral tiny hypodensities that are too small to be characterized and could represent cysts. PELVIS: BLADDER: Within normal limits. REPRODUCTIVE ORGANS: No pelvic mass BOWEL: No bowel dilatation. Small periampullary diverticulum. Few uncomplicated diverticulosis. No ascites. No pneumoperitoneum. VESSELS: No aneurysmal dilatation. LYMPH NODES: No enlarged lymphadenopathy. BONES AND ABDOMINAL WALL: No destructive osseous lesions. Scattered tiny sclerotic osseous foci likely bony islands. Bilateral small fat containing inguinal hernias. IMPRESSION: 1. No acute intra-abdominal or pelvic pathology. 2. Uncomplicated colonic diverticulosis. 3. Trace hiatal hernia. 4. Scattered splenic calcific granulomas likely sequelae of chronic granulomatous infection. MACRO: None Signed by: Renaldo Conrad 02/01/2023 2:52 PM Dictation workstation: [id number] [facility] CT Abdomen and Pelvis W cont rast Candace 02-01-2023 1. No acute intra-ab dominal or pelvic pathology. 2. Uncomplicated colonic diverticulosis. 3. Trace hiatal hernia. 4. Scattered splenic calcific granulomas likely sequelae of chronic granulomatous infection. MACRO: None Signed by: Renaldo Conrad 02/01/2023 2:52 PM Dictation workstation: [id number] MMODAL Interpreted By: Renaldo Palmer, STUDY: CT ABDOMEN PELVIS W IV CONTRAST; 02/01/2023 2:11 pm INDICATION: Signs/Symptoms:worsening LLQ abdominal pain and watery diarrhea. COMPARISON: None. ACCESSION NUMBER(S): [id number] ORDERING CLINICIAN: YOSSI CHEN TECHNIQUE: CT of the abdomen and pelvis was performed. Standard contiguous axial images were obtained at 3 mm slice thickness through the abdomen and pelvis. Coronal and sagittal reconstructions at 3 mm slice thickness were performed. 75 ml of contrast were administered intravenously without immediate complication. FINDINGS: LOWER CHEST: Bibasal atelectasis ABDOMEN: LIVER: Normal in size. Normal contour. Few tiny hypodensities in segment 2 and segment 4B that are too small to be characterized however likely benign/cysts. BILE DUCTS: No intrahepatic biliary dilatation. GALLBLADDER: Cholecystectomy. PANCREAS: The pancreas appears unremarkable without evidence of ductal dilatation or masses. SPLEEN: Scattered calcific granulomas ADRENAL GLANDS: No nodules. KIDNEYS AND URETERS: The kidneys are normal in size and enhance symmetrically. No hydroureteronephrosis or nephroureterolithiasis is identified. Few bilateral tiny hypodensities that are too small to be characterized and could represent cysts. PELVIS: BLADDER: Within normal limits. REPRODUCTIVE ORGANS: No pelvic mass BOWEL: No bowel dilatation. Small periampullary diverticulum. Few uncomplicated diverticulosis. No ascites. No pneumoperitoneum. VESSELS: No aneurysmal dilatation. LYMPH NODES: No enlarged lymphadenopathy. BONES AND ABDOMINAL WALL: No destructive osseous lesions. Scattered tiny sclerotic osseous foci likely bony islands. Bilateral small fat containing inguinal hernias. [facility] MMODAL Renaldo Conrad MD - 02/01/2023 Interpreted By: Renaldo Conrad, STUDY: CT ABDOMEN PELVIS W IV CONTRAST; 02/01/2023 2:11 pm INDICATION: Signs/Symptoms:worsening LLQ abdominal pain and watery diarrhea. COMPARISON: None. ACCESSION NUMBER(S): [id number] ORDERING CLINICIAN: YOSSI CHEN TECHNIQUE: CT of the abdomen and pelvis was performed. Standard contiguous axial images were obtained at 3 mm slice thickness through the abdomen and pelvis. Coronal and sagittal reconstructions at 3 mm slice thickness were performed. 75 ml of contrast were administered intravenously without immediate complication. FINDINGS: LOWER CHEST: Bibasal atelectasis ABDOMEN: LIVER: Normal in size. Normal contour. Few tiny hypodensities in segment 2 and segment 4B that are too small to be characterized however likely benign/cysts. BILE DUCTS: No intrahepatic biliary dilatation. GALLBLADDER: Cholecystectomy. PANCREAS: The pancreas appears unremarkable without evidence of ductal dilatation or masses. SPLEEN: Scattered calcific granulomas ADRENAL GLANDS: No nodules. KIDNEYS AND URETERS: The kidneys are normal in size and enhance symmetrically. No hydroureteronephrosis or nephroureterolithiasis is identified. Few bilateral tiny hypodensities that are too small to be characterized and could represent cysts. PELVIS: BLADDER: Within normal limits. REPRODUCTIVE ORGANS: No pelvic mass BOWEL: No bowel dilatation. Small periampullary diverticulum. Few uncomplicated diverticulosis. No ascites. No pneumoperitoneum. VESSELS: No aneurysmal dilatation. LYMPH NODES: No enlarged lymphadenopathy. BONES AND ABDOMINAL WALL: No destructive osseous lesions. Scattered tiny sclerotic osseous foci likely bony islands. Bilateral small fat containing inguinal hernias. IMPRESSION: 1. No acute intra-abdominal or pelvic pathology. 2. Uncomplicated colonic diverticulosis. 3. Trace hiatal hernia. 4. Scattered splenic calcific granulomas likely sequelae of chronic granulomatous infection. MACRO: None Signed by: Renaldo Conrad 02/01/2023 2:52 PM Dictation workstation: [id number] [facility] Work Phone: Radiology Study observation (narrative) [facility] Work Phone: CT Abdomen and Pelvis W cont rast IVOrdered By: Renaldo Conrad on 02-01-2023 [facility] Work Phone: Gastrointestinal pathogens i dentifiedon 02-01-2023 Gastrointestinal pathogens identified MIKE+probe Nom (Stl) Campylobacter coli+jejuni+upsaliensis DNA Not Detected Salmonella sp DNA Not Detected Shigella sp DNA Not Detected Vibrio cholerae DNA Not Detected Yersinia enterocolitica DNA Not Detected Escherichia coli Stx1 toxin stx1 gene Not Detected Escherichia coli Stx2 toxin stx2 gene Not Detected Norovirus genogroup I AND II RNA Not Detected Rotavirus RNA Not Detected Normal Not Detected [facility] Comment on above: Performed By: #### 7 9390-1 #### RENÉ Hinojosa ([id number]) [facility] ([facility]) [id number] [place] [address] Basic metabolic 2000 panelon 01-31-2023 Anion gap [Moles/Vol] 12 mmol/L Normal - [facility] Comment on above: Performed By: #### 2 4321-2 #### MAYELIN Hill ([id number]) [facility] ([facility] [place] [address] [place] [address] Calcium [Mass/Vol] 7.2 mg/dL Low 8.6-10.3 [facility] Comment on above: Performed By: #### 2 4321-2 #### MAYELIN Hill ([id number]) [facility] ([facility]) [address] [place] [address] Chloride [Moles/Vol] 106 mmol/L Normal 98-107 [facility] Comment on above: Performed By: #### 2 4321-2 #### MAYELIN Hill ([id number]) [facility] ([facility]) [address] [place] [address] CO2 [Moles/Vol] 28 mmol/L Normal 21-32 [facility] Comment on above: Performed By: #### 2 4321-2 #### MAYELIN Hill ([id number]) [facility] ([facility]) [address] [place] [address]598 Creatinine [Mass/Vol] 1.65 mg/dL High 0.50-1.30 [facility] Comment on above: Performed By: #### 2 4321-2 #### MAYELIN Hill ([id number]) [facility] ([facility]) [address] [place] [address]888 GFR/1.73 sq M.predicted MDRD (S/P/Bld) [Vol rate/Area] 45 mL/min/1.73m*2 Low >60 [facility] Comment on above: Result Comment: Calc ulations of estimated GFR are performed using the 2020 CKD-EPI Study Refit equation without the race variable for the IDMS-Traceable creatinine methods. https://jasn.asnjournals.org/content//ASN.93281852 88 Performed By: #### 2 4321-2 #### MAYELIN Hill ([id number]) [facility] ([facility]) [address] [place] [address] 16835 Glucose [Mass/Vol] 83 mg/dL Normal 74-99 [facility] Comment on above: Performed By: #### 2 4321-2 #### MAYELIN Hill ([id number]) [facility] ([facility]) [address] [place] [address]205 Potassium [Moles/Vol] 4.3 mmol/L Normal 3.5-5.3 [facility] Comment on above: Performed By: #### 2 4321-2 #### MAYELIN Hill ([id number]) [facility] ([facility]) [address] [place] [address] 56363 Sodium [Moles/Vol] 142 mmol/L Normal 136-145 [facility] Comment on above: Performed By: #### 2 4321-2 #### MAYELIN Hill ([id number]) [facility] ([facility]) [address] [place] [address] 93288 Urea nitrogen [Mass/Vol] 25 mg/dL High 6-23 [facility] Comment on above: Performed By: #### 2 4321-2 #### MAYELIN Hill ([id number]) [facility] ([facility]) [address] [place] [address] Leydi 01-30-2023 CNPN Telephone (NIQ) YOLI ANTUNEZ ([id number]) 1955 M Date Time Provider Department 01/30/23 MARÍA PEARL During your visit today, we recorded the following information about you: Aydee Hunter 01/30/2023 11:59 AM Signed Scanned in lab from [facility] for review Paul Burns RN 01/30/2023 1:53 PM Signed YAMILA Cage, RN, BA Paul Burns RN 01/30/2023 4:11 PM Signed María Pearl APRN.ADMINISTRATIVE DIRECTOR You 2 hours ago (1:58 PM) I sent a message to the patient. Paul Burns, CAROLN, RN, BA Allergies As of Date: 01/30/2023 Noted Allergy Reaction PENICILLINS 09/12/2000 16 - Unknown TIKOSYN (DOFETILIDE) 07/26/2022 14 - Other: See Comments Comments: Aphasia, dizzy, muscle cramps VANCOMYCIN 07/26/2022 10 - Anaphylaxis Date Reviewed: 01/24/2023 Reviewed by: Peggy Bravo RN - Fully Assessed Reason for Visit: Results [95] Prescriptions as of 01/30/2023 - aspirin, enteric coated (ASPIRIN, ENTERIC COATED) 81 mg EC tablet Take 81 mg by mouth once daily. - benazepril (LOTENSIN) 10 mg tablet Take 1 tablet by mouth once daily. - benazepril (LOTENSIN) 5 mg tablet - calcitriol (ROCALTROL) 0.25 mcg capsule Take 0.25 mcg by mouth once daily. - calcium carbonate 500 mg calcium (1,250 mg) chewable tablet Take 1 tablet by mouth once daily. - dilTIAZem HCl 360 mg 24 hr tablet Take 1 tablet by mouth once daily. - ergocalciferol 50,000 unit capsule (VITAMIN D2, DRISDOL) Take 50,000 Units by mouth one time a week. - levothyroxine (LEVOXYL) 175 mcg tablet Take 1 tablet by mouth daily before breakfast. - nitroglycerin sublingual (NITROQUICK) 0.4 mg SL tablet Dissolve 0.4 mg under the tongue every 5 minutes as needed. - pramipexole (MIRAPEX) 1 mg tablet Take 2 mg by mouth daily at bedtime. Problem List As Of Date 01/30/2023 Noted Resolved TENSION HEADACHE [G44.209] Retinal detachment, left [H33.22] 10/07/2017 Total retinal detachment of left eye [H33.052] 10/07/2017 Nuclear sclerotic cataract, left [H25.12] 10/07/2017 Persistent atrial fibrillation (HCC) [I48.19] 12/13/2020 Atrial flutter (HCC) [I48.92] 12/14/2020 Primary hypertension [I10] 12/14/2020 CAD (coronary artery disease) [I25.10] 12/14/2020 CKD (chronic kidney disease) [N18.9] 12/14/2020 ADA (obstructive sleep apnea) [G47.33] 12/14/2020 TIA (transient ischemic attack) [G45.9] 12/14/2020 Thyroid disease [E07.9] 12/14/2020 GERD (gastroesophageal reflux disease) [K21.9] 12/14/2020 Restless leg [G25.81] 12/14/2020 Calculus of gallbladder [K80.20] 01/02/2022 Idiopathic acute pancreatitis without infection*01/02/2022 Chronic migraine without aura, with intractable*05/31/2022 Encounter Status:Closed by PAUL BURNS on 01/30/23 [facility] Leydi 01-28-2023 EDUARDO Telephone (NIQ) YOLI ANTUNEZ ([id number]) 1955 M Date Time Provider Department 01/28/23 MARÍA PEARL During your visit today, we recorded the following information about you: Aydee Hunter 01/28/2023 9:37 AM Signed Scanned in results from [facility] for review Paul Burns RN 01/28/2023 9:58 AM Signed YAMILA Cage, RN, BA Paul Burns RN 01/28/2023 10:49 AM Signed María Pearl APRN.ADMINISTRATIVE DIRECTOR You 15 minutes ago (10:27 AM) Thank you. Appears normal. YAMILA Vivar, RN, BA Allergies As of Date: 01/28/2023 Noted Allergy Reaction PENICILLINS 09/12/2000 16 - Unknown TIKOSYN (DOFETILIDE) 07/26/2022 14 - Other: See Comments Comments: Aphasia, dizzy, muscle cramps VANCOMYCIN 07/26/2022 10 - Anaphylaxis Date Reviewed: 01/24/2023 Reviewed by: Peggy Bravo RN - Fully Assessed Reason for Visit: Results [95] Cmt: [facility] Prescriptions as of 01/28/2023 - benazepril (LOTENSIN) 5 mg tablet - ergocalciferol 50,000 unit capsule (VITAMIN D2, DRISDOL) Take 50,000 Units by mouth one time a week. - calcium carbonate 500 mg calcium (1,250 mg) chewable tablet Take 1 tablet by mouth once daily. - calcitriol (ROCALTROL) 0.25 mcg capsule Take 0.25 mcg by mouth once daily. - aspirin, enteric coated (ASPIRIN, ENTERIC COATED) 81 mg EC tablet Take 81 mg by mouth once daily. - benazepril (LOTENSIN) 10 mg tablet Take 1 tablet by mouth once daily. - dilTIAZem HCl 360 mg 24 hr tablet Take 1 tablet by mouth once daily. - nitroglycerin sublingual (NITROQUICK) 0.4 mg SL tablet Dissolve 0.4 mg under the tongue every 5 minutes as needed. - levothyroxine (LEVOXYL) 175 mcg tablet Take 1 tablet by mouth daily before breakfast. - pramipexole (MIRAPEX) 1 mg tablet Take 2 mg by mouth daily at bedtime. Problem List As Of Date 01/28/2023 Noted Resolved TENSION HEADACHE [G44.209] Retinal detachment, left [H33.22] 10/07/2017 Total retinal detachment of left eye [H33.052] 10/07/2017 Nuclear sclerotic cataract, left [H25.12] 10/07/2017 Persistent atrial fibrillation (HCC) [I48.19] 12/13/2020 Atrial flutter (HCC) [I48.92] 12/14/2020 Primary hypertension [I10] 12/14/2020 CAD (coronary artery disease) [I25.10] 12/14/2020 CKD (chronic kidney disease) [N18.9] 12/14/2020 ADA (obstructive sleep apnea) [G47.33] 12/14/2020 TIA (transient ischemic attack) [G45.9] 12/14/2020 Thyroid disease [E07.9] 12/14/2020 GERD (gastroesophageal reflux disease) [K21.9] 12/14/2020 Restless leg [G25.81] 12/14/2020 Calculus of gallbladder [K80.20] 01/02/2022 Idiopathic acute pancreatitis without infection*01/02/2022 Chronic migraine without aura, with intractable*05/31/2022 Encounter Status:Closed by PAUL BURNS on 01/28/23 Normal [facility] CNOVon 01-24-2023 CNOV Office Visit (SYNCMN ) YOLI ANTUNEZ ([id number]) 1955 M Date Time Provider Department 01/24/23 1:45 PM [facility] NURSE SYNCMN During your visit today, we recorded the following information about you: Peggy Bravo RN 01/24/2023 3:23 PM Signed UNIVERSAL PROTOCOL / SAFETY CHECKLIST Procedure to be performed: [facility]: TILT Sign in Communication: Completed Time Out: Team Confirms the Correct Patient, Correct Procedure, Correct Site and Site Marking, Correct Position (if applicable). Time: 1419 STAFF: Concha Malloy DO Affirmation of Time Out: N/A Sign Out Discussion: Completed Briana Emmanuel RN Orders placed 01/23/23 by María Pearl APRN.CNP Allergies: Penicillins, Tikosyn [Dofetilide], and Vancomycin Test done in consult with María Pearl APRN.ADMINISTRATIVE DIRECTOR . Procedure Start Time: 141 Height 198.1 cm Weight 112.5 kg Patient fasting for 4 hours: Yes Support stockings taken off for procedure: Not applicable Pain Assessment: Patient states none Comfort Measures: Added pillow for head/shoulders Pacemaker: No Comments: Loop recorder and watchmen IV Placement: by Briana Emmanuel Baseline: BP 104/64 HR 56 Pre-Max Tilt : 70 degrees 09 min BP 79/50 HR 75 Max Tilt: 70 degrees 10 min BP 82/53 HR 71 Note: Test was stopped early at the 10 min into 70 degree HUT due to decrease in blood pressure, patient symptoms, and patient request to stop test and resume supine positioning. See Final Report for Diagnosis. IV discontinued at 1520 by Briana Emmanuel. Staff involved in procedure: Peggy Bravo RN; Briana Emmanuel RN Procedure Finish Time: 1523 Allergies As of Date: 01/24/2023 Noted Allergy Reaction PENICILLINS 09/12/2000 16 - Unknown TIKOSYN (DOFETILIDE) 07/26/2022 14 - Other: See Comments Comments: Aphasia, dizzy, muscle cramps VANCOMYCIN 07/26/2022 10 - Anaphylaxis Date Reviewed: 01/24/2023 Reviewed by: Peggy Bravo RN - Fully Assessed Primary Visit Diagnosis:Autonomic dysfunction [G90.9] Other Visit Diagnoses:Orthostatic lightheadedness [R42] Near syncope [R55] Orthostatic dizziness [R42] Order(s):SALINE LOCK DISCONTINUE [[id number]] Order #: [id number]: 1 INTERMITTENT PERIPHERAL DEVICE ([place], [place]) [[id number]] Order #: [id number]: 1 Prescriptions as of 01/24/2023 - benazepril (LOTENSIN) 5 mg tablet - ergocalciferol 50,000 unit capsule (VITAMIN D2, DRISDOL) Take 50,000 Units by mouth one time a week. - calcium carbonate 500 mg calcium (1,250 mg) chewable tablet Take 1 tablet by mouth once daily. - calcitriol (ROCALTROL) 0.25 mcg capsule Take 0.25 mcg by mouth once daily. - aspirin, enteric coated (ASPIRIN, ENTERIC COATED) 81 mg EC tablet Take 81 mg by mouth once daily. - benazepril (LOTENSIN) 10 mg tablet Take 1 tablet by mouth once daily. - dilTIAZem HCl 360 mg 24 hr tablet Take 1 tablet by mouth once daily. - nitroglycerin sublingual (NITROQUICK) 0.4 mg SL tablet Dissolve 0.4 mg under the tongue every 5 minutes as needed. - levothyroxine (LEVOXYL) 175 mcg tablet Take 1 tablet by mouth daily before breakfast. - pramipexole (MIRAPEX) 1 mg tablet Take 2 mg by mouth daily at bedtime. Problem List As Of Date 01/24/2023 Noted Resolved TENSION HEADACHE [G44.209] Retinal detachment, left [H33.22] 10/07/2017 Total retinal detachment of left eye [H33.052] 10/07/2017 Nuclear sclerotic cataract, left [H25.12] 10/07/2017 Persistent atrial fibrillation (HCC) [I48.19] 12/13/2020 Atrial flutter (HCC) [I48.92] 12/14/2020 Primary hypertension [I10] 12/14/2020 CAD (coronary artery disease) [I25.10] 12/14/2020 CKD (chronic kidney disease) [N18.9] 12/14/2020 ADA (obstructive sleep apnea) [G47.33] 12/14/2020 TIA (transient ischemic attack) [G45.9] 12/14/2020 Thyroid disease [E07.9] 12/14/2020 GERD (gastroesophageal reflux disease) [K21.9] 12/14/2020 Restless leg [G25.81] 12/14/2020 Calculus of gallbladder [K80.20] 01/02/2022 Idiopathic acute pancreatitis without infection*01/02/2022 Chronic migraine without aura, with intractable*05/31/2022 Encounter Status:Closed [facility]O Tele[facility] (NIQ) YOLI ANTUNEZ ([id number]) 1955 M Date Time Provider Department 01/24/23 MARÍA PEARL During your visit today, we recorded the following information about you: Aydee Hunter 01/24/2023 2:27 PM Signed Scanned in medical records from [facility] for review Paul Burns RN 01/24/2023 4:54 PM Signed Awaiting other lab results. Will send [facility] once all results are back. María Pearl APRN.ADMINISTRATIVE DIRECTOR You 2 hours ago (2:47 PM) Normal Vitamin B12. YAMILA Vivar, RN, BA Allergies As of Date: 01/24/2023 Noted Allergy Reaction PENICILLINS 09/12/2000 16 - Unknown TIKOSYN (DOFETILIDE) 07/26/2022 14 - Other: See Comments Comments: Aphasia, dizzy, muscle cramps VANCOMYCIN 07/26/2022 10 - Anaphylaxis Date Reviewed: 01/24/2023 Reviewed by: Peggy Bravo RN - Fully Assessed Reason for Visit: Received Outside Medical Records [[id number]] Cmt: [facility] Prescriptions as of 02/04/2023 - aspirin, enteric coated (ASPIRIN, ENTERIC COATED) 81 mg EC tablet Take 81 mg by mouth once daily. - benazepril (LOTENSIN) 10 mg tablet Take 1 tablet by mouth once daily. - benazepril (LOTENSIN) 5 mg tablet - calcitriol (ROCALTROL) 0.25 mcg capsule Take 0.25 mcg by mouth once daily. - calcium carbonate 500 mg calcium (1,250 mg) chewable tablet Take 1 tablet by mouth once daily. - dilTIAZem HCl 360 mg 24 hr tablet Take 1 tablet by mouth once daily. - ergocalciferol 50,000 unit capsule (VITAMIN D2, DRISDOL) Take 50,000 Units by mouth one time a week. - levothyroxine (LEVOXYL) 175 mcg tablet Take 1 tablet by mouth daily before breakfast. - nitroglycerin sublingual (NITROQUICK) 0.4 mg SL tablet Dissolve 0.4 mg under the tongue every 5 minutes as needed. - pramipexole (MIRAPEX) 1 mg tablet Take 2 mg by mouth daily at bedtime. Problem List As Of Date 01/24/2023 Noted Resolved TENSION HEADACHE [G44.209] Retinal detachment, left [H33.22] 10/07/2017 Total retinal detachment of left eye [H33.052] 10/07/2017 Nuclear sclerotic cataract, left [H25.12] 10/07/2017 Persistent atrial fibrillation (HCC) [I48.19] 12/13/2020 Atrial flutter (HCC) [I48.92] 12/14/2020 Primary hypertension [I10] 12/14/2020 CAD (coronary artery disease) [I25.10] 12/14/2020 CKD (chronic kidney disease) [N18.9] 12/14/2020 ADA (obstructive sleep apnea) [G47.33] 12/14/2020 TIA (transient ischemic attack) [G45.9] 12/14/2020 Thyroid disease [E07.9] 12/14/2020 GERD (gastroesophageal reflux disease) [K21.9] 12/14/2020 Restless leg [G25.81] 12/14/2020 Calculus of gallbladder [K80.20] 01/02/2022 Idiopathic acute pancreatitis without infection*01/02/2022 Chronic migraine without aura, with intractable*05/31/2022 Encounter Status:Closed by PAUL BURNS on 02/04/23 [facility] CNOVon 01-23-2023 CNOV Office Visit (NENMMN ) YOLI ANTUNEZ ([id number]) 1955 M Date Time Provider Department 01/23/23 8:00 AM MARÍA PEARLVTVANESSA During your visit today, we recorded the following information about you: Pulse Respiration Blood pressure Weight 70/minute 18/minute 114/78 112.5 kg Height 1.981 m Kristen Wagner OCCA 01/23/2023 10:15 AM Signed Answers submitted by the patient for this visit: Ya 31 (Submitted on 01/17/2023) In the past year, have you ever felt faint, dizzy, goofy , or had difficulty thinking soon after standing up from a sitting or lying position?: Yes In the past year, have you ever noticed color changes in your skin, such as red, white, or purple?: No In the past 5 years, what changes, if any, have occurred in your general body sweating?: I sweat much more than I used to Do your eyes feel excessively dry? : Yes Does your mouth feel excessively dry? : Yes For the symptom of dry eyes or dry mouth that you have had for the longest period of time, is this symptom:: Getting somewhat worse In the past year, have you noticed any changes in how quickly you get full when eating a meal?: I get full more quickly now than I used to In the past year, have you felt excessively full or persistently full (bloated feeling) after a meal?: A lot of the time In the past year, have you vomited after a meal? : Never In the past year, have you had a cramping or colicky abdominal pain?: A lot of the time In the past year, have you had any bouts of diarrhea?: Yes In the past year, have you been constipated? : No In the past year, have you ever lost control of your bladder function?: Occasionally In the past year, have you had difficulty passing urine?: Never In the past year, have you had trouble completely emptying your bladder?: Occasionally In the past year, without sunglasses or tinted glasses, has bright light bothered your eyes?: Constantly In the past year, have you had trouble focusing your eyes?: Occasionally Is this most troublesome symptom with your eyes (i.e. sensitivity to bright light or trouble focusing) getting:: Getting somewhat worse (Submitted on 01/17/2023) When standing up, how frequently do you get these feelings or symptoms?: Frequently How would you rate the severity of these feelings or symptoms?: Severe In the past year, have these feelings or symptoms that you have experienced:: Gotten much worse (Submitted on 01/17/2023) How frequently does this occur?: Constantly How severe are these bouts of diarrhea?: Severe Are your bouts with diarrhea getting:: Much worse (Submitted on 01/17/2023) How severe is this sensitivity to bright light?: Moderate (Submitted on 01/17/2023) How severe is this focusing problem? : Moderate María Pearl APRN.[facility] 01/23/2023 10:15 AM Signed Yoli Antunez is a 67 year old male. Patient presents with: New Patient Consult Jamil is a right handed male here today for evaluation. PMH: Paroxysmal Atrial Fibrillation s/p cardiac ablation x3, hypertension, chronic kidney disease stage 3, Thyroid goiter s/p thyroidectomy 2018, hypothyroidism, GI bleed, abdominal aortic aneurysm, chronic daily headaches, ocular migraines, TIA x2, prolonged QT interval About 3 years ago, he began to experience spells of dizziness and lightheadedness. It has been progressively worsening with time. The dizziness is described as an unsteady sensation. Dizziness is NOT described as a room spinning sensation. 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 The lightheadedness and dizziness does NOT occur while supine or sitting, but only while upright. The lightheadedness and dizziness onsets with being upright. If he lays down, the lightheadedness and dizziness will improve. The orthostatic lightheadedness and dizziness is a daily occurrence, multiple times. The lightheadedness and dizziness can reach the point of near syncope. Near syncope occurs a few times (1-2) per week. He has NOT had a syncopal spell. He will have episodes of expressive aphasia associated with migraines. The aphasia is not directly associated with the lightheadedness and dizziness. The aphasia spells occur every few weeks and can last 30 minutes-300 minutes. Associated with the aphasia, he can have ptosis of his eye lid (R>L). The ptosis of his eye lids can last 30-45 minutes before resolving. No objective weakness in his body is noted, but he will feel generally weak. He has had multiple CT Brain, CTA head/neck, MRA Head/neck that have been unrevealing for his aphasia spells. He is not followed by neurology locally. He does follow with t (more content not included)... Normal [facility] Office Visiton 01-21-2023 Follow-up visit [id number] Fr freda Antunez Jr. 1955 Date Provider Department Center 01/21/2023 [id number]-ELYSSA SOLANO [facility] Family History Problem Relation Age of Onset Hypertension Mother Cancer Mother Stroke Mother Hypertension Father Aortic aneurysm Father Cancer Father Aortic aneurysm Paternal Grandfather Sudden Neg Hx Family Status - Relation Status Age at Mother Father Paternal Grandfather Neg Hx Level of Service:92579 [place] OFFICE/OUTPATIENT ESTABLISHED MOD MDM 30-[address] [facility] CNOVon 12-31-2022 CNOV Office Visit (NHMNS2 ) YOLI ANTUNEZ ([id number]) 1955 M Date Time Provider Department 12/31/22 3:15 PM SARBJIT RICHARDSON [facility] During your visit today, we recorded the following information about you: Pulse Blood pressure Weight Height 69/minute 123/77 114.8 kg 1.981 m Sarbjit Richardson, TREATING PLANT OPERATOR.ADMINISTRATIVE DIRECTOR 12/31/2022 5:04 PM Signed [facility] Follow up visit December 31, 2022 Chief Complaint: headache and dizziness Impression and Plan last visit: 09/13/2022 with me Yoli Antunez is a 67 year old year old male, with a history of multiple medical problems including HTN, A-FIB, CAD, CKD, HTN, hypothyroidism, probable TIAs, GI bleed, AAA, chronic daily headaches with cervicogenic and migraine component, imbalance, and dizziness.He reports chronic headaches/migraines of varying intensity with typical migrainous features.He also describes Episodes of aphasia and dizziness w/headaches that have been increasing in frequency. Left eye will droop followed by aphasia. He has had multiple workups for stroke. He was evaluated by Cardiology at the [facility] for syncopal episodes. Likely a neurocardiogenic type mechanism closely related to migraine pathology. Started on Effexor stopped due to side effects, Pyridostigmine also stopped due to side effects. He reports trying medications for anxiety but none have been effective. Feels headaches are now almost daily - after infusion reported dizziness, feeling of euphoria and feeling out of it. Which was related to effexor. ICHD-3 Diagnosis: Chronic Migraine Headache (CM) PLAN: Continue Vyepti 100mg -evaluate response if needed increase the does Interval Headache History: 10/18/2022 Vyepti 100 mg x2 Lightehead and euphoric the day after Vyepti #1 The day after Vyepti # 2- walking to the barn - legs gave way - fell, eyelids shut he could not open them, aphasia, dizziness . put in in the front film loader and helped him to the house - episode lasted 6 hours. The last headache he had with Vyepti occurred the day after treatment Denies reduction frequency and severity Vestibular Rehab-not much luck Headaches are daily - periods during the day that he is headache free Dizziness occurs with headaches. Dizziness, headache and neck pain resolve when he lays down Triggers- exertion on workload, bending down and neck extension Migraine 2-3 a month - he will lay down and they go away by the next morning Headaches - sitting down and rest will reduce intensity and eventually resolve Tinnitus worse with headache Aphasia - stops talking - occurred the other day with chest pain Sometimes occurs with headache - aphasia will last about 6 hours 12/23/2022 ED: 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 a wagon load of hay - he was dizzy, chest pain, SOB- went to the ED- workup negative. Treated for hypotension. Workup essentially unremarkable including troponins and ECG 09/11/[address] [facility]- Cardiology - Jackie Banks FINAL INSPECTION SUPERVISOR wrote: I copied and pasted my initial consult note from [facility] date 07/20/2022 for continuity of care: Hx paroxysmal atrial fibrillation. Undervent a watchman device implant at [facility] 03/06/2022. History of CAD. AAA not increased, monitored. Hx hypertension 10 years. No diabetes. Hx thyroid removal for goiter 2017. Hx TIA for the last 5 years. At least two. Intermittent prolong QT interval on EKG. Loop recorder for atrial fibrillation. Negative findings. Bouts of aphagia which began with the TIA onset. Aphagia monthly. Loss of ability to form words. Eyelid will close (left side) -cant open. Several stroke workups negative. Has seen neurology for the aphagia. Hx of migraines. Last evaluated one month ago by neurology [facility]. Recent MRA MRV. HPI: Syncope began about 10 years ago. Triggers: out of the blue or heavy exertion. Most episodes he sits and recovers. Acute dizziness, trouble breathing, chest pounding (not associated with atrial fibrillation). More recently sent for headupright tilt. Reproduced dizziness, lightheaded. Then had aphagia for three hours on tilt. ER visit. Negative. Syncope and aphagia not associated per patient. After episode is weak and tired. No syncope or seizures in the family. Last syncope 6 months ago while walking in kitchen, three steps. Dizzy prior. No nausea or sweating. Hit the floor. LOC few minutes. No seizure activity. No loss of bowel or bladder. Normally episodes occur while upright. Orthostatic blood pressures historically are good, Trouble with swallowing. No constipation. We added venlafaxine, did not tolerate- caused DUMONT Added pyridostigmine but not effective and caused excessive diarrhea Assessment/Plan The primary encounter diagnosis was Autonomic dysfunction. Diagnoses of Syncope and collapse, Essential hypertension, Lab (more content not included)... Normal [facility] Office Visiton 12-28-2022 Follow-up visit [id number] Fr freda Antunez Jr. 1955 M Date Provider Department Center 12/28/2022 Freddy-COLLIN GONSALEZ Family History Problem Relation Age of Onset Hypertension Mother Cancer Mother Stroke Mother Hypertension Father Aortic aneurysm Father Cancer Father Aortic aneurysm Paternal Grandfather Sudden Neg Hx Family Status - Relation Status Age at Mother Father Paternal Grandfather Neg Hx Level of Service:95520 [place] OFFICE/OUTPATIENT ESTABLISHED MOD MDM 30-[address] [facility] Follow Up (General Surgery)o n 12-13-2022 Follow Up (General Surgery) Diagnoses/Problems H/O hiatal hernia (V12.79) (Z87.19) Patient Discussion/Summary followup as needed Provider Impressions Patient continues to do well. He was reassured; followup as needed Chief Complaint Patient is here for follow up History of Present [id number] patient who underwent laparoscopic hiatal hernia repair with toupet wrap on November 21. I saw him on November 29 because of pain in the left upper quadrant incision after playing tag of war with his dog. He was given Toradol/Flexeril and Neurontin. He is here in follow-up. Doing much better. He only has the pain with heavy lifting and straining. 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) H/O hiatal hernia (V12.79) (Z87.19) Muscle strain (848.9) (T14.8XXA) ADA on CPAP (327.23) (G47.33) Past Medical History History of Calcium kidney stone (592.0) (N20.0) History of hiatal hernia (V12.79) (Z87.19) Resolved Date: 29 Nov 2022 History of hypertension (V12.59) (Z86.79) History of TIA (transient ischemic attack) (435.9) (G45.9) Surgical History History of Appendectomy History of Atrial appendage closure device insertion History of Catheter ablation History of Cervical surgery History of Cholecystectomy laparoscopic History of Colonoscopy History of Esophagogastroduodenoscopy History of Knee surgery History of Loop recorder insertion History of Lumbar laminectomy History of Paraesophageal hiatal hernia repair History of Thyroidectomy total History of Tonsillectomy Family History Family history of lung cancer (V16.1) (Z80.1) Family history of lung cancer (V16.1) (Z80.1) Social History Former smoker (V15.82) (Z87.891) No illicit drug use Social alcohol use (V49.89) (Z78.9) Allergies amoxicillin Recorded By: Joana Smith; 03/03/2019 11:20:29 AM Penicillins Recorded By: Joana Smith; 03/03/2019 11:20:29 AM Tikosyn CAPS Recorded By: Peggy Rivas; 07/31/2022 11:46:43 AM Vancomycin HCl CAPS Recorded By: Peggy Rivas; 09/25/2022 12:33:09 PM Vancomycin HCl in Dextrose SOLN Recorded By: Peggy Rivas; 09/25/2022 12:33:09 PM Current Meds Medication NameInstruction Benazepril HCl - 10 MG Oral TabletTAKE 1 TABLET BY MOUTH ONCE DAILY Calcitriol 0.25 MCG Oral Capsule Calcium TABS Cyclobenzaprine HCl - 10 MG Oral TabletTAKE 1 TABLET TWICE DAILY NEEDED. dilTIAZem HCl ER Coated Beads 180 MG Oral Capsule Extended Release 24 Hour Gabapentin 300 MG Oral Capsule1 tablet twice daily as needed for pain Ketorolac Tromethamine 10 MG Oral TabletTAKE 1 TABLET EVERY 8 HOURS NEEDED FOR PAIN. Levothyroxine Sodium 150 MCG Oral Capsule Levothyroxine Sodium 175 MCG Oral Tablet Mirapex 1 MG TABSTAKE 1 TABLET TWICE DAILY. Omeprazole 20 MG Oral Capsule Delayed ReleaseTAKE 1 CAPSULE BY MOUTH 30 MINUTES PRIOR TO DINNER Ondansetron HCl - 4 MG Oral Tablet Oyster Shell Calcium 500 MG Oral TabletTAKE 1 TABLET BY MOUTH TWICE DAILY WITH MEALS Pyridostigmine Acme 60 MG Oral TabletTAKE 1 TABLET BY MOUTH THREE TIMES DAILY (BEFORE BREAKFAST, BEFORE LUNCH, BEFORE EVENING MEAL) START AT ONE HALF TABLET (30 MG) THREE TIMES DAILY WITH MEALS AND INCREASE TOLERATED TO THE FULL TABLET 3 TIMES A DAY Sertraline HCl - 50 MG Oral Tablet Sucralfate 1 GM Oral Tablet Tamsulosin HCl - 0.4 MG Oral Capsule Uloric 40 MG Oral Tablet Vitamin D (Ergocalciferol) 1.25 MG (28332 UT) Oral CapsuleTAKE 1 CAPSULE BY MOUTH ONCE A WEEK Physical Exam abd: soft, non-distended, minimal tenderness over LUQ incision Signatures Electronically signed by : Yossi Chen MD; Dec 13 2022 10:59AM EST (Author) [facility] Post Op (General Surgery)on 11-29-2022 Post Op (General Surgery) Diagnoses/Problems History of hiatal hernia (V12.79) (Z87.19) H/O hiatal hernia (V12.79) (Z87.19) Muscle strain (848.9) (T14.8XXA) Orders H/O hiatal hernia, Muscle strain Start: Cyclobenzaprine HCl - 10 MG Oral Tablet; TAKE 1 TABLET TWICE DAILY NEEDED Rx By: Yossi Chen; Dispense: 3 Days ; #:6 Tablet; Refill: 0;For: H/O hiatal hernia, Muscle strain; ALBERT = N; Print Rx Start: Ketorolac Tromethamine 10 MG Oral Tablet; TAKE 1 TABLET EVERY 8 HOURS NEEDED FOR PAIN Rx By: Yossi Chen; Dispense: 3 Days ; #:9 Tablet; Refill: 0;For: H/O hiatal hernia, Muscle strain; ALBERT = N; Print Rx Start: Gabapentin 300 MG Oral Capsule; 1 tablet twice daily as needed for pain Rx By: Yossi Chen; Dispense: 0 Days ; #:10 Capsule; Refill: 0;For: H/O hiatal hernia, Muscle strain; ALBERT = N; Sent To: [facility] 1422 Patient Discussion/Summary Ice pack to left abdominal region; Don't take pain medications to together; take one at a time; followup in 2 wks; start regular diet tomorrow Provider Impressions Satisfactory postoperative course. The patient has more pain over the left upper quadrant incision after playing tag of war with his dog; likely pulled or strained his abdominal wall. I have ordered Toradol/Flexeril and Gabapentin. He will apply ice pack to the abdominal wall; followup in 2 wks Chief Complaint Patient is here for post op History of Present [id number] patient who underwent laparoscopic repair of paraesophageal hernia with toupet wrap on November 21. He was doing well until yesterday when he was playing tug-of-war with his dog. Immediately, he started having excruciating pain over the LUQ incision. The coughing with meal has resolved. He does report foods getting hang up in his throat requiring him to cough it up or wash it down with water. Denies heartburn and acid reflux. 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) H/O hiatal hernia (V12.79) (Z87.19) Muscle strain (848.9) (T14.8XXA) ADA on CPAP (327.23) (G47.33) Past Medical History History of Calcium kidney stone (592.0) (N20.0) History of hiatal hernia (V12.79) (Z87.19) Resolved Date: 29 Nov 2022 History of hypertension (V12.59) (Z86.79) History of TIA (transient ischemic attack) (435.9) (G45.9) Surgical History History of Appendectomy History of Atrial appendage closure device insertion History of Catheter ablation History of Cervical surgery History of Cholecystectomy laparoscopic History of Colonoscopy History of Esophagogastroduodenoscopy History of Knee surgery History of Loop recorder insertion History of Lumbar laminectomy History of Paraesophageal hiatal hernia repair History of Thyroidectomy total History of Tonsillectomy Family History Family history of lung cancer (V16.1) (Z80.1) Family history of lung cancer (V16.1) (Z80.1) Social History Former smoker (V15.82) (Z87.891) No illicit drug use Social alcohol use (V49.89) (Z78.9) Allergies amoxicillin Recorded By: Joana Smith; 03/03/2019 11:20:29 AM Penicillins Recorded By: Joana Smith; 03/03/2019 11:20:29 AM Tikosyn CAPS Recorded By: Peggy Rivas; 07/31/2022 11:46:43 AM Vancomycin HCl CAPS Recorded By: Peggy Rivas; 09/25/2022 12:33:09 PM Vancomycin HCl in Dextrose SOLN Recorded By: Peggy Rivas; 09/25/2022 12:33:09 PM Current Meds Medication NameInstruction Benazepril HCl - 10 MG Oral TabletTAKE 1 TABLET BY MOUTH ONCE DAILY Calcitriol 0.25 MCG Oral Capsule Calcium TABS dilTIAZem HCl ER Coated Beads 180 MG Oral Capsule Extended Release 24 Hour Levothyroxine Sodium 150 MCG Oral Capsule Levothyroxine Sodium 175 MCG Oral Tablet Mirapex 1 MG TABSTAKE 1 TABLET TWICE DAILY. Omeprazole 20 MG Oral Capsule Delayed ReleaseTAKE 1 CAPSULE BY MOUTH 30 MINUTES PRIOR TO DINNER Ondansetron HCl - 4 MG Oral Tablet Oyster Shell Calcium 500 MG Oral TabletTAKE 1 TABLET BY MOUTH TWICE DAILY WITH MEALS Pyridostigmine Acme 60 MG Oral TabletTAKE 1 TABLET BY MOUTH THREE TIMES DAILY (BEFORE BREAKFAST, BEFORE LUNCH, BEFORE EVENING MEAL) START AT ONE HALF TABLET (30 MG) THREE TIMES DAILY WITH MEALS AND INCREASE TOLERATED TO THE FULL TABLET 3 TIMES A DAY Sertraline HCl - 50 MG Oral Tablet Sucralfate 1 GM Oral Tablet Tamsulosin HCl - 0.4 MG Oral Capsule Uloric 40 MG Oral Tablet Vitamin D (Ergocalciferol) 1.25 MG (19965 UT) Oral CapsuleTAKE 1 CAPSULE BY MOUTH ONCE A WEEK Vitals Vital Signs Recorded: 29Nov2022 01:43PM Height6 ft 6 in Ojqtvl791 lb BMI Fvcaurcfkv40.24 kg/m2 BSA Calculated2.49 Physical Exam abd: soft, non-distended, tenderness over LUQ trocar site; no hernia Signatures Electronically signed by : Yossi Chen MD (more content not included)... [facility] Discharge [id number] Discharge Profile2 Discharge Orders: Anticipated Discharge Date: Anticipated Discharge [id number] Hospital Providers: Provider RoleProvider Name Yossi Olguin Code Status: Code Status at Discharge: Full Code DNR Order Additional Instructions (peds only): Activity: activity as tolerated. May shower. May return to school/work Instructions: May drive. Diet: Dietfull liquids, full liquid diet for 3 days and soft diet for 5 days. Wound Care 1: Wound Siteremove glue in 1 wk Call Provider If (Homegoing Patients): Fever of 100.4 F (38 C) or higher. Chills. Drinking less than normal. Acting very sleepy and difficult to awaken. Vomiting (throwing up) and not able to eat or drink for 12 hours. 3 or more loose, watery bowel movements in 24 hours (diarrhea). Any new concerning symptoms. Provider FINAL REVIEW of Orders: Final Review: Final Review of Medication Reconciliation and Orders Completedby Physician Reviewing ProviderYossi Chen MD at 22-Nov-2022 12:26:07 Appointments: Follow-Up Appointment 01: Physician/Dept/ServiceDr. Chen Reason for ReferralFollow up Call to Schedule in2 weeks Phone [phone] Commentscall to make appointment Other Clinician Instructions: Other Instructions: Other Clinician InstructionsAvoid bread, salad, steak and carbonated beverages for 2 wks Electronic Signatures: Sivan Costa (TREATING PLANT OPERATOR-[facility]) (Signed 22-Nov-2022 12:04) Authored: Discharge Orders, Provider FINAL REVIEW of Orders, Appointments, Gold Form - Textile Machinery Instructor Summary Yossi Chen) (Signed 22-Nov-2022 12:26) Authored: Discharge Orders, Provider FINAL REVIEW of Orders, Appointments, Other Clinician Instructions Last Updated: 22-Nov-2022 12:26 by Yossi Chen) [facility] Order Reconciliationon 11-22 Order Reconciliation Page 1 Discharge Reconciliation Document Reconciliation Type: Discharge requested on behalf of Yossi Chen (Physician) done by Yossi Chen) Discharge - Partial Reconciliation: 22-Nov-2022 12:05 by: Sivan Costa ([facility]) Discharge - Reconciliation: 22-Nov-2022 12:31 by: Yossi Chen) Home Medications EnteredHOME MEDICATIONS AT DISCHARGE DateReconciliation Comment/ Additional Information Aspir 81 oral delayed release tablet 1 tab(s) orally once a day ( holding for procedure ) 13-Aug-2022 17:06 Aspir 81 oral delayed release tablet 1 tab(s) orally once a day ( holding for procedure ) 25-Nov-2022 12:28 Discontinued; Copy/Discontinue Aspir 81 oral delayed release tablet is continued and modified benazepril 10 mg oral tablet 1 tab(s) orally once a day 13-Aug-2022 17:04 benazepril 10 mg oral tablet 1 tab(s) orally once a day 13-Aug-2022 17:04 benazepril 10 mg oral tablet is continued as benazepril 10 mg oral tablet calcitriol 0.25 mcg oral capsule 1 cap(s) orally once a day 13-Aug-2022 17:06 calcitriol 0.25 mcg oral capsule 1 cap(s) orally once a day 13-Aug-2022 17:06 calcitriol 0.25 mcg oral capsule is continued as calcitriol 0.25 mcg oral capsule Calcium 500+D oral tablet, chewable 1 tab(s) orally once a day 13-Aug-2022 17:06 Calcium 500+D oral tablet, chewable 1 tab(s) orally once a day 13-Aug-2022 17:06 Calcium 500+D oral tablet, chewable is continued as Calcium 500+D oral tablet, chewable dilTIAZem 180 mg/24 hours oral tablet, extended release 2 tab(s) orally once a day 19-Nov-2022 12:21 dilTIAZem 180 mg/24 hours oral tablet, extended release 2 tab(s) orally once a day 19-Nov-2022 12:21 dilTIAZem 180 mg/24 hours oral tablet, extended release is continued as dilTIAZem 180 mg/24 hours oral tablet, extended release febuxostat 40 mg oral tablet 1 tab(s) orally once a day 21-Nov-2022 14:09 febuxostat 40 mg oral tablet 1 tab(s) orally once a day 21-Nov-2022 14:09 febuxostat 40 mg oral tablet is continued as febuxostat 40 mg oral tablet levothyroxine 150 mcg (0.15 mg) oral tablet 1 tab(s) orally 3 times a week (alternates dose and frequency with 175 mcg 4 times a week) 19-Nov-2022 12:22 levothyroxine 150 mcg (0.15 mg) oral tablet 1 tab(s) orally 3 times a week (alternates dose and frequency with 175 mcg 4 times a week) 19-Nov-2022 12:22 levothyroxine 150 mcg (0.15 mg) oral tablet is continued as levothyroxine 150 mcg (0.15 mg) oral tablet levothyroxine 175 mcg (0.175 mg) oral tablet 1 tab(s) orally 4 times a week (alternates dose and frequency with 150 mcg 3 times a week) 19-Nov-2022 12:23 levothyroxine 175 mcg (0.175 mg) oral tablet 1 tab(s) orally 4 times a week (alternates dose and frequency with 150 mcg 3 times a week) 19-Nov-2022 12:23 levothyroxine 175 mcg (0.175 mg) oral tablet is continued as levothyroxine 175 mcg (0.175 mg) oral tablet Mirapex 1 mg oral tablet 2 tab(s) orally once a day (at bedtime) 19-Nov-2022 12:01 Mirapex 1 mg oral tablet 2 tab(s) orally once a day (at bedtime) 19-Nov-2022 12:01 Mirapex 1 mg oral tablet is continued as Mirapex 1 mg oral tablet omeprazole 20 mg oral delayed release tablet 1 tab(s) orally once a day 21-Nov-2022 14:08 omeprazole 20 mg oral delayed release tablet 1 tab(s) orally once a day 21-Nov-2022 14:08 omeprazole 20 mg oral delayed release tablet is continued as omeprazole 20 mg oral delayed release tablet Vitamin B2 1.25 milligram(s) orally once a day 13-Aug-2022 17:05 Vitamin B2 1.25 milligram(s) orally once a day 13-Aug-2022 17:05 Vitamin B2 is continued as Vitamin B2 Vitamin D3 1250 mcg (50,000 intl units) oral capsule 1 cap(s) orally once a week- Saturdays 12:24 Vitamin D3 1250 mcg (50,000 intl units) oral capsule 1 cap(s) orally once a week- Saturdays 12:24 Vitamin D3 1250 mcg (50,000 intl units) oral capsule is continued as Vitamin D3 1250 mcg (50,000 intl units) oral capsule Current OrdersDateHOME MEDICATIONS AT DISCHARGE DateReconciliation Comment/ Additional Information Calcitriol Capsule (ROCALTROL)DOSE = 0.25 microgram(s) Oral Daily 21-Nov-2022 13:02 Calcitriol is not required dilTIAZem (CARDIZEM CD) Extended Release (24 hour) Capsule, Extended ReleaseDOSE = 180 mg Oral Every 24 Hours 21-Nov-2022 13:02 dilTIAZem (CARDIZEM CD) Extended Release (24 hour) is not required Docusate Capsule (COLACE)DOSE = 100 mg Oral 2 Times a Day 21-Nov-2022 14:32 Docusate is not required HYDROcodone 7.5 mg - Acetaminophen 325 mg Tablet (NORCO)DOSE = 1 tablet(s) Oral Every 6 Hours, PRN Pain - Mod (4-6) 21-Nov-2022 14:31 hydrocodone-acetaminophen 7.5 mg-325 mg oral tablet 1 tab(s) orally every 6 hours, As needed, Pain - Mod (4-6) 22-Nov-2022 12:28 Prescription is created for hydrocodone-acetaminophen 7.5 mg-325 mg oral tablet Lactated Ringers Infusion IV Bag Volume = 1,000 mL Run at: 60 mL/hr IntraVenous 21-Nov-2022 12:46 Lactated Ringers Infusion is not required (more content not included)... Normal [facility] APTTon 11-21-2022 aPTT Coag (Bld) [Time] 34 s Normal 27 - 38 [facility] Comment on above: Result Comment: Note new reference range as of 10/09/2022 at 10:00am. Performed By: #### A PTT ####[facility] [place], [place] [id number] Activated Partial Thrombopla stin Timeon 11-21-2022 aPTT Coag (PPP) [Time] 34 s 27 - 38 [facility] 201 DO Work Phone: Comment on above: Note new reference r josephine as of 10/09/2022 at 10:00am. Admission Risk Screen - Adul ton 11-21-2022 Admission Risk Screen - Adult Allergies: Allergies: Tikosyn: Other vancomycin: Rash penicillins: Unknown Patient Verification: New W ID Band Applied in my Departmentno Type of ID Patient is WearingW wristband, but not applied here Patient Transferred from Other Facility ([facility], [facility],etc)no Patient Identity Verified Bypatient ID Band FULL Name, include Middle, spelling matches patient's ID used for verificationyes ID Band Matches Patient ID used for Verficationyes ID Band MRN Matches EMR MRNyes Visitor Restriction: Coronavirus Visitor Restriction: Reasonable restrictions to in-person visitors will be observed due to current coronavirus pandemic. Travel History: COVID-19 Screening Completedno exposure or symptoms Travel or Exposure Past 30 DaysNO travel to International locations in the past 30 days Ebola AlertFor Ebola-like Symptoms: Isolate Patient and Notify Provider/Oracle Fusion Consultant For Contact: Notify Provider/Oracle Fusion Consultant Advance Directive: Advance Directive/DNRyes Advance Directive typeLiving Will Living Will AvailabilityLiving Will not available now Living Will [id number] [place] Fall Screen: History of falling (immediate or previous)no (0) Secondary Diagnosisyes (15) Intravenous Therapy/ Heparin/Saline Lockyes (20) Gait/Transferringnormal/bedr est/wheelchair (0) Ambulatory Aidsnone/bedrest/nurse assist (0) Mental Statusoriented to own ability (0) Score: Low risk (<25). Moderate risk (25-44). High risk (>44).35 [place] InterventionsMODERATE INTERVENTIONS: *Low Interventions Plus: * falls risk band/sticker applied to patient, *yellow non-skid footwear, *instruct to call for assistance before getting out of bed, *bed/chair/bedside commode/toilet alarms, *sensory devices/ambulatory aides available and in reach, *medications reviewed for potential side effects and care planning. Family Violence Screen: Are you or have you been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 HEADACHE [G44.209] Retinal detachment, left [H33.22] 10/07/2017 Total retinal detachment of left eye [H33.052] 10/07/2017 Nuclear sclerotic cataract, left [H25.12] 10/07/2017 Persistent atrial fibrillation (HCC) [I48.19] 12/13/2020 Atrial flutter (HCC) [I48.92] 12/14/2020 Primary hypertension [I10] 12/14/2020 CAD (coronary artery disease) [I25.10] 12/14/2020 CKD (chronic kidney disease) [N18.9] 12/14/2020 ADA (obstructive sleep apnea) [G47.33] 12/14/2020 TIA (transient ischemic attack) [G45.9] 12/14/2020 Thyroid disease [E07.9] 12/14/2020 GERD (gastroesophageal reflux disease) [K21.9] 12/14/2020 Restless leg [G25.81] 12/14/2020 Calculus of gallbladder [K80.20] 01/02/2022 Idiopathic acute pancreatitis without infection*01/02/2022 Chronic migraine without aura, with intractable*05/31/2022 Encounter Status:Closed by JESSICA SCOTT on 11/29/22 [facility] Initial Visit (General Surge ry)on 11-12-2022 Initial Visit (General Surgery) Diagnoses/Problems Hiatal hernia (553.3) (K44.9) GERD (gastroesophageal reflux disease) (530.81) (K21.9) Patient Discussion/Summary you will undergo hiatal hernia repair Provider Impressions 67-year-old patient with symptomatic large hiatal hernia. Symptoms consist of previous history of bleeding Stephen ulcer, dysphagia, heartburn and acid reflux. Workups have included esophageal manometry, esophagram and two EGDs and I have reviewed all of them. 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 Also noted on EGD were dysfunctional vocal cord and atrophic gastric mucosa with pathology showing mild chronic gastritis. I had extensive discussion with patient and about the various tests. I recommended laparoscopic hiatal hernia repair with Toupet wrap. I explained to them the procedure, the risks and complications which include but not limited to bleeding, infection, bowel injury, vagus nerve injury, dysphagia requiring dilatation, excessive flatus, gas bloat, inability to burp, blood clot, FL and stroke. All questions answered and he is willing to proceed. He will be on a full liquid diet for 3 days after surgery and then advance to a soft diet. Avoid bread [place] steak and carbonated beverage for 2 weeks. Chief Complaint Patient referred by Dr. Daily for a hiatal hernia consult. History of Present Hsyfcmt29 y/o male patient referred for symptomatic hiatal hernia. Symptoms consist of heartburn, acid reflux and dysphagia. He thinks he has had GERD symptoms for at least 5 yrs. Reports undergoing EGD and clipping for bleeding ulcer in the hiatal hernia years ago. He was started on Omeprazole 20 mg 2 yrs ago. On that dose, he was having breakthrough heartburn one to two times per week requiring Tums. He was then increased to 40 mg daily for months now. On this current dose, he is having one to two episodes per month of excruciating heartburn. When the burning starts in my throat, it is like I am on fire and I am very miserable . He reports dysphagia with especially solid food but at times with liquid. Per him, when the food gets stuck, he drinks lots of water to wash it down or cough it up. On August 10, he underwent esophagram which showed moderate size hiatal hernia, reflux and abnormal mucosa. On August 30, he underwent EGD for placement of esophageal manometry. Findings were 5 cm hiatal hernia, 3 mm nodule at the GE junction and diffuse atrophic gastric mucosa. Esophageal manometry showed shortened LES length, decreased LES pressure, moderate hiatal hernia and low amplitude contraction and spasms. 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 Other findings were large hiatal hernia and vocal cord dysfunction. Gastric biopsy shows mild chronic gastritis. History of TIA over a year ago. Watchman placed on February 2022. Denies tobacco use and occasional ETOH use. Denies nausea and vomiting. Denies chest pain, pressure but SOB on exertion. Review of Systems Constitutional: no acute distress, no unintentional weight loss, no fever or chill, no weakness or fatigue Eyes: no eye pain, no loss of vision, no double vision ENT: no hearing loss; no earaches, no neck pain or hoarseness Cardiovascular: no chest pain or pressure, no palpation, no claudication, no lower extremity edema, no tachycardia, no postural nocturnal dyspnea Respiratory: no dyspnea, no asthma, no wheezing, no hemoptysis, no cough Gastrointestinal: denies abdominal pain, nausea, vomiting; heartburn and acid reflux Genitourinary: denies urinary frequency, urgency and dysuria Musculoskeletal: denies limb pain, swelling or muscle weakness Integumentary: no rashes, pressure wounds or skin lesions Neurological: no headaches, confusion, dizziness, fainting/syncope, numbness, tingling Psych; no history of depression or anxiety; no suicidal plans or ideation Endocrine: no heat or cold intolerance Hematologic/lymphatics: no swollen glands, no easy bruising or bleeding 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 [facility] Visit ([facility]tolaryng ology)on 10-26-2022 Established Visit (Otolaryngology) Patient Discussion/Summary Diagnose: ADA intolerant to PAP Plan: Based on DISE patient is a candidate for HNS or MAD After patient centered discussion because of dysphagia patient decides to pursue MAD before invasive procedures. - Patient is referred to oral appliances clinic (Dr Wander Hendrix). For patients with obstructive sleep apnea, dental appliances or mandibular advancement devices advance the lower jaw forward preventing the tongue from blocking the throat. These devices help keep the airway open during sleep improving sleep quality. Chief Complaint Verbal consent was requested and obtained from YOLI ANTUNEZ on this date, 10/26/2022 03:00 PM , for a telehealth visit. Follow up visit to review results of DISE Adult Risk ScreeningAdult Risk Screening_: There are no spiritual/cultural practices/values/needs that are important to know Initial Fall Risk Screening: YOLI has fallen in the last 6 months. He has fallen due to tripped. His fall did not result in injury. YOLI does not have a fear of falling. He does not need assistance with sitting, standing or walking. Does not need assistance walking in his home. He does not need assistance in an unfamiliar setting. The patient is not using an assistive device. Fall Risk Screening: Patient is identified as a fall risk. Care Plan: Moderate Risk: Low risk interventions plus: do not leave patient on exam table unattended, supervised activity, educate patient/family on falls prevention, review safety initiatives with patient/family, family at bedside as allowed, yellow falls risk band, focus rounding attention, locate patient in area of high visibility, wheelchair, bed, or personal alarm, bedside commode, elevated toilet seat and pharmacy consult for medication concerns. Altered Mobility: none. Alteration in Mental Status: no. Relevant Medical History/Diagnosis: Multiple Dx: . Altered Elimination: no. Medications That May Alter Equilibrium:. bp. Sensory Deficit: no. Unable or Unwilling to Follow Directions: no. Low: age 65 or older and multiple or pertinent current diagnoses. Moderate: fall in last 6 months or fear of falling and medications that might alter equilibrium/cognitive judgment/severity of injury. Pain Scale: On a scale of 0 to 10, the patient rates the pain at 0. Tobacco Screening: YOLI does not use tobacco. Has not used tobacco in the past 6 months. History of Present Illness Mr. ANTUNEZ , 1955, referred for an initial consultation with me but established with this practice, with a long history of waking up feeling unrefreshed, excessive daytime fatigue. [place] Sleepiness Scale Score is 16 /24. Fatigue Severity Scale Score is 54 /63. Snoring VAS 3 /10 Sleep study histories: (personally reviewed raw data such as interpretation report, data sheet, hypnogram, and titration table)The patient has been previously diagnosed with obstructive sleep apnea (ADA), in a sleep test performed on 07/12/2020, that showed an Apnea Hypopnea Index (AHI) of 18.5 events per hour. During that night, the lowest 02 saturation was 86 %, and the patient spent 1.7% of total sleep time with 02 sat less than 90%. The apnea index (AI) was 3.4 events per hour. During supine sleep the AHI was 86.4 events per hour (Not enough supine sleep though, 2%) Patient was prescribed CPAP; however, he has had lots of issues with CPAP use including choking at night and difficulty with the mask. Patient's ENT history is also notable for currently being worked up with our laryngology colleagues for dysphagia, glottic insufficiency, and vocal fold paresis. For nocturnal symptoms he reports choking if laying in his back Patient does not report nasal obstruction. NOSE- 0 / 20 Nasal Obstruction VAS- 0/10 10/26/2022 An interactive audio/video telecommunication system which permits real time communications between the patient (at the originating site) and provider (at the distant site) was utilized to provide this Telehealth service. Verbal consent was requested and obtained previous to appointment. Appointment lasted 22 minutes. Patient returns today to discuss DISE findings: A flexible endoscope was passed via the nares to evaluate sites of dynamic airway collapse. STRUCTURE OBSTRXNA-P LATERAL CONCENTRIC COMMENTS VELUM 22 OROPHARYNX 0 TONGUE BASE 22 EPIGLOTTIS 11 The most significant finding was a complete collapse of the of tongue and velum in AP fashion. Jaw thrust significantly stabilizes the airway. With these findings patient is a candidate for HNS or MAD. Patient's lowest oxygen desaturation was: 84 %. 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 Normal [facility] Visiton 10-19-2022 Follow-up visit [id number] Fr freda Antunez Jr. 1955 M Date Provider Department Center 10/19/2022 [facility] Family History Problem Relation Age of Onset Hypertension Mother Cancer Mother Stroke Mother Hypertension Father Aortic aneurysm Father Cancer Father Aortic aneurysm Paternal Grandfather Sudden Neg Hx Family Status - Relation Status Age at Mother Father Paternal Grandfather Neg Hx Level of Service:85388 [place] OFFICE/OUTPATIENT ESTABLISHED MOD MDM 30-[address] [facility] Order Reconciliationon 10-15 Order Reconciliation Page 1 Discharge Reconciliation Document Reconciliation Type: Discharge requested on behalf of Arabella Terry (Physician) done by Arabella Terry) Discharge - Reconciliation: 15-Oct-2022 11:14 by: Arabella Terry) Home Medications EnteredHOME MEDICATIONS AT DISCHARGE DateReconciliation Comment/ Additional Information Aspir 81 oral delayed release tablet 1 tab(s) orally once a day 13-Aug-2022 17:06 Aspir 81 oral delayed release tablet 1 tab(s) orally once a day 13-Aug-2022 17:06 Aspir 81 oral delayed release tablet is continued as Aspir 81 oral delayed release tablet benazepril 10 mg oral tablet 1 tab(s) orally once a day 13-Aug-2022 17:04 benazepril 10 mg oral tablet 1 tab(s) orally once a day 13-Aug-2022 17:04 benazepril 10 mg oral tablet is continued as benazepril 10 mg oral tablet calcitriol 0.25 mcg oral capsule 1 cap(s) orally once a day 13-Aug-2022 17:06 calcitriol 0.25 mcg oral capsule 1 cap(s) orally once a day 13-Aug-2022 17:06 calcitriol 0.25 mcg oral capsule is continued as calcitriol 0.25 mcg oral capsule Calcium 500+D oral tablet, chewable 1 tab(s) orally once a day 13-Aug-2022 17:06 Calcium 500+D oral tablet, chewable 1 tab(s) orally once a day 13-Aug-2022 17:06 Calcium 500+D oral tablet, chewable is continued as Calcium 500+D oral tablet, chewable DilTIAZem (Eqv-Dilacor XR) 360 milligram(s) orally once a day 13-Aug-2022 17:03 DilTIAZem (Eqv-Dilacor XR) 360 milligram(s) orally once a day 13-Aug-2022 17:03 DilTIAZem (Eqv-Dilacor XR) is continued as DilTIAZem (Eqv-Dilacor XR) Mirapex 2 milligram(s) orally once a day 13-Aug-2022 17:01 Mirapex 2 milligram(s) orally once a day 13-Aug-2022 17:01 Mirapex is continued as Mirapex omeprazole 20 mg oral delayed release tablet 1 tab(s) orally once a day 13-Aug-2022 17:07 omeprazole 20 mg oral delayed release tablet 1 tab(s) orally once a day 13-Aug-2022 17:07 omeprazole 20 mg oral delayed release tablet is continued as omeprazole 20 mg oral delayed release tablet Synthroid orally once a day, 175mcg or 150mcg change daily 13-Aug-2022 17:02 Synthroid orally once a day, 175mcg or 150mcg change daily 13-Aug-2022 17:02 Synthroid is continued as Synthroid Uloric 40 mg oral tablet 1 tab(s) orally once a day 13-Aug-2022 17:04 Uloric 40 mg oral tablet 1 tab(s) orally once a day 13-Aug-2022 17:04 Uloric 40 mg oral tablet is continued as Uloric 40 mg oral tablet Vitamin B2 1.25 milligram(s) orally once a day 13-Aug-2022 17:05 Vitamin B2 1.25 milligram(s) orally once a day 13-Aug-2022 17:05 Vitamin B2 is continued as Vitamin B2 All Active Home Medications at time of Discharge Reconciliation: 15-Oct-2022 11:14 Aspir 81 oral delayed release tablet 1 tab(s) orally once a day benazepril 10 mg oral tablet 1 tab(s) orally once a day calcitriol 0.25 mcg oral capsule 1 cap(s) orally once a day Calcium 500+D oral tablet, chewable 1 tab(s) orally once a day DilTIAZem (Eqv-Dilacor XR) 360 milligram(s) orally once a day Mirapex 2 milligram(s) orally once a day omeprazole 20 mg oral delayed release tablet 1 tab(s) orally once a day Synthroid orally once a day, 175mcg or 150mcg change daily Uloric 40 mg oral tablet 1 tab(s) orally once a day Vitamin B2 1.25 milligram(s) orally once a day Normal [facility] Patient Profile - Preop v3on 10-12-2022 Patient Profile - Preop v3 Patient Profile - Preop: Initial Info: Patient DemographicsName: YOLI ANTUNEZ Date: 1955 Address: [address] [place] [address], [id number] Primary Phone [phone] Instructions Giventime to arrive, Arrival time of 0930 for surgery time of 1100 How to be Addressedfrederick Spoken Language PreferredEnglish Stated Reason for Admissionsleep study Primary Contact Name and Numbersee facesheet Medications Brought to Hospitalno General Health: Weight in kg116.6 kilogram(s) Weight in gel849 pound(s) Height in feet6 feet Height in inches5.95 inch(es) Height in cm197.9 centimeter(s) BMI (kg/m2)29.771 square meter Patient or Family Member Reaction to Anesthesiapatient reaction Patient Reaction to Anesthesiaawakening delayed Blood Avoidance/Restrictionsnone Previous Transfusion Reactionnot applicable Health Mgmt: Symptoms/Conditions Managed at Homecardiovascular; endocrine Barriers to Managing Healthnone Relationship/Environ: Lives Withspouse Living Arrangementshouse Resource/Environmental Concernsnone Anticipated [facility] Anticipated at Transitionnone Tobacco Use: Tobacco U[employer]o Pre-op Checklist: Arrival [id number] Arrival Time09:59 Procedure Typesleep study NPOyes Last Food [id number] 00:00 Last Clear Fluid [id number] 00:00 ID Band On Patientpatient ID (name), allergy Consent Signedyes H&P Completeyes Anesthesia Assessment Completedpending EKG Performednot ordered Chest X-Ray Performednot ordered Preop Antibioticsnot ordered Chlorhexadine Bath Givencompleted at home Surgical Site Infection Preventionyes Additional Information: Information Review: Allergies, Home Meds and Significant Events have been Reviewed and Verified with Patient/Familyyes Allergy, Intolerance, Adverse Event: Allergies: Tikosyn: Drug, Other, Active vancomycin: Drug, Rash, Active penicillins: Drug Category, Unknown, Active Electronic Signatures: Letty Godfrey (RN) (Signed 15-Oct-2022 10:00) Authored: Initial Info, General Health, Health Mgmt, Relationship/Environ, Tobacco Use, Pre-op Checklist, Additional Information Lupe VillarrealRN) (Signed 12-Oct-2022 13:08) Authored: Initial Info, Additional Information Last Updated: 15-Oct-2022 10:00 by Letty Godfrey) Normal [facility] Electrocardiogram 12 Leadon 10-10-2022 Electrocardiogram 12 Lead Ventricular Rate 70 Atrial Rate 70 P-R Interval 194 QRS Duration 78 Q-T Interval 420 QTC Calculation(Bazett) 453 P [place] 38 R [place] 13 T [place] 66 QRS Count 12 Q Onset 222 P Onset 125 P Offset 161 T Offset 432 QTC Fredericia 442 Diagnosis Class Normal Diagnosis Normal sinus rhythm Normal ECG No previous ECGs available Confirmed by Aliya Candelaria ([id number]) on 10/14/2022 8:34:16 PM Normal [facility] No Panel Informationon 10-10 [email or web address]?Ret rieveTestByDateTime?PatientI F=[id number]&Date=10-10-2022& Time=14%3a24%3a36%3a00&TestT ype=ECG&Site=10&OutputType=P DF&Ext=PDF [facility] Work Phone: Normal sinus rhythm [facility] Work Phone: [phone] Normal [facility] Work Phone: [phone] [facility] Work Phone: [phone] [facility] Work Phone: [phone] [facility] Work Phone: [phone] [facility] Work Phone: [phone] [facility] Work Phone: 12 1 [facility] Work Phone: [phone] [facility] Work Phone: [phone] [facility] Work Phone: [phone] [facility] Work Phone: [phone] [facility] Work Phone: [phone] [facility] Work Phone: [phone] [facility] Work Phone: [phone] [facility] Work Phone: [phone] [facility] Work Phone: Established Visit (Otolaryng ology)on 09-25-2022 Established Visit (Otolaryngology) Diagnoses/Problems GERD (gastroesophageal reflux disease) (530.81) (K21.9) Dysphagia, oropharyngeal phase (787.22) (R13.12) Non-smoker (V49.89) (Z78.9) Hiatal hernia (553.3) (K44.9) Aphasia (784.3) (R47.01) Patient Discussion/Summary Today, you were seen by Dr. Ruby Daily MD. Our office will call you to schedule your appointment(s). If you have any questions or concerns, please contact my office at . 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 I discussed the findings with the patient and have recommended the followin) Dysphagia, with prior ACDF/cervical plate, mild UES narrowing, HH and possible inflammatory narrowing at GEJ on esophagram, but also suspect underlying issues with esophageal motility. Manometry completed 08/30/22 - f/u manometry results - Continue PPI - Will call him regarding next steps after manometry review; consider referral to foregut for consideration of HH repair. 2) Episodic aphasia, suspect unrelated to swallowing troubles, symptoms appear more central. Sees neurology at [facility] who suspects he may have autonomic dysfunction - F/u with [facility] neurology as scheduled 2) ADA, CPAP intolerance - pending appt with Dr Michaud 08/17 3) Dysphonia, not bothersome - continue to monitor Chief Complaint An interactive audio and video telecommunication system which permits real time communications between the patient (at the originating site) and provider (at the distant site) was utilized to provide this telehealth service. Verbal consent was requested and obtained from YOLI ANTUNEZ on this date, 09/25/2022 02:30 PM , for a telehealth visit. Dysphagia follow-up History of Present Rkuekxi1 year old man with history of intermittnet aphasia (possible autonomic instability), solid and liquid dysphagia referred to me by Dr. Perrin. He is now s/p esophagoscopy and dilation 09/13/22 to 32mm and biopsies. 09/25/22: Follow-up after dilation to 32mm. Overall symptoms are similar though thinks the frequency of solid and liquid dysphagia is a little less. Most prominently instead of chest symptoms he is feeling things more in his throat. Seeing neurology at [facility] for his intermittent aphasia. Still awaiting manometry results. 09/04/22: Here for follow-up. Esophagram completed 08/10/22 with moderate hiatal hernia, possible inflammatory narrowing at GEJ, also area of mucosal irregularity for which endoscopy was recommended. He had manometry placed under endoscopy on 08/30/22, overall esophagus appeared normal on their exam with small 3mm nodule at GEJ that was biopsied. Pathology pending. He reports some days swallowing is fine and other days it's hard to get anything down. Carrots and celery hang up high. Some liquid dysphagia that feels like it is hanging up in his chest. He's been paying more attention to how he is chewing and eating. No other diet modifications He also is having episodes of aphasia. He reports that all of a sudden he will be unable to form words verbally although can write and read. Last occurred after manometry procedure. Has been worked up in the past during these episodes for stroke without findings. Sees a neurologist who thinks it may be autonomic dysfunction, has follow-up next week. No other associated symptoms. He came off on Plavix and is on a baby aspirin. He reports some issues with anesthesia in the past. 07/31/22: He reports about 3 years ago he started having trouble swallowing. He feels like things like liquids and solids are getting hung up in his lower throat/upper chest. Often times he can wash it down but other times he has to cough up food. This occurs about every other meal. Meats are worst but sometimes can occur with water. Getting worse over the past 3 years, episodes more frequent. He does have reflux symptoms, on omeprazole QAM which controls his heartburn. Weight has been steady, would like to lose 15-20 lbs, no weight loss due to swallowing issues. He reports every several months he has aspiration pneumonia, starts with trouble breathing and then gets xray at [facility] and gets antibiotics. About 2 times in the past year. He delayed his care over the past two years 2/2 to cardiac arrhythmia issues - afib, has a watchman and loop implant now. Continues to struggle with SVT. Is currently on plavix - is supposed to be done in a couple of weeks. He did see neurologist - they continue to be without a diagnostic. His biggest symptoms are headaches, TIA, intermittent aphasia. PMH/PSH: afib s/p ablations on plavix (due to come off in 2 weeks), thyroidectomy on levothyroxine, ACDF, ADA ROS performed. All other systems are reviewed and are negative for complaint except as noted in HPI. Studies: I personally reviewed the studies below with the following interpretation. (more content not included)... 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 Follow up with Dr. Daily and Dr. Michaud as scheduled. Welcome to Dr. Perrin?s clinic. We are here to assist you through your ENT care at [facility]. Dr. Perrin is an ENT surgeon who specializes in voice, airway and swallowing issues. This means that she specializes in taking care of patients with complex voice, airway and swallowing problems. Dr. Perrin's office number is [phone]. Please use this number to contact her and her care team regardless of which office you use to access care. This number is the most direct way to communicate with all the members of the care team. Dr. Perrin?s payroll secretary answers the office phone from 9am-4pm Mon-Fri. Call [phone] and push 2. She can help you with scheduling of appointments, general questions and information. You may need to leave a message if she is helping another patient. In this case, someone from the team will call you back the same day if you leave your message before 3pm, or the next business morning. Dr. Perrin?s nurse and can be reached by calling [phone]. We make every effort to return phone calls the same day. If you are in need of urgent assistance after hours, please call [phone] and ask for ENT dispersion mixer. Dr. Perrin works closely with speech therapists as they work together to help solve your issues with speech and swallowing. You may see a speech therapist during your appointment if Dr. Perrin feels this is needed. If you need to reach speech therapy to talk with a therapist or to schedule an appointment, please call [phone]. Others who may be included in your care are dieticians, social workers, audiologists, neurologists, and physical therapists. Dr. Perrin will provide these referrals as needed. Please let her know if you would like to request a specific referral. For your convenience, Dr. Perrin sees patients at different [facility] locations including the [facility], and [facility] at the [facility]. While we try to make your appointments as convenient as possible, occasionally a visit to another location may be necessary to provide the best care for you. Dr. Perrin makes every effort to run on time for your appointments. Therefore, if you are more than 30 minutes late unrelated to a scan or another appointment such therapy or audiology, your appointment will need to be rescheduled to another day. We appreciate your understanding. We look forward to working with you to meet your healthcare goals. By signing my name below, Francine Read Scribe, attest that this documentation has been prepared under the direction and in the presence of Dr. Ranjana Perrin MD. All medical record entries made by the Scribe were at my direction and personally dictated by me. I have reviewed the chart and agree that the record accurately reflects my personal performance of the history, physical exam, discussion and plan. 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 He has dysfluency. We discussed: 1. I will discuss his care with Dr. Long at [facility] to understand current treatment plans 2. He will follow up with Dr. Daily and Dr. Michaud as scheduled. The patient's questions were answered. Chief Complaint An interactive audio and video telecommunication system which permits real time communications between the patient (at the originating site) and provider (at the distant site) was utilized to provide this telehealth service. Verbal consent was requested and obtained from YOLI ANTUNEZ on this date, 09/24/2022 08:30 AM , for a telehealth visit. Swallow History of Present IllnessDysphagia with MBS was performed in September 2019 which showed pharyngeal dysphagia. He is tolerating a regular diet. He has stable weight MBS from 2019 -shows reduced base of tongue retraction, poor pharyngeal wall squeeze, poor relaxation of UES, no change with head turn or chin tuck, prior 2018 esophagram with slow clearing of the distal esophagus and pill sticking in the vallecula Interval History (06/2022): He underwent a dilation with Dr. Daily. He has worsening in his swallow. He is choking on both solids and liquids. He has noted changes after the dilation. He noted no improvement in his voice after speech therapy. He has dysfluency that last for a few seconds to hours. No know triggers. He will undergo a DISE with Dr. Michaud. He (more content not included)... Normal [facility] Established Visit (Otolaryngology) No report was sent Normal [facility] Patient Messageon 09-19-2022 Patient Message [id number] Fr freda Antunez Jr. 1955 M Date Provider Department Center 09/19/2022 JACKIE HASTINGS [facility] CARD [facility] Family History Problem Relation Age of Onset Hypertension Mother Cancer Mother Stroke Mother Hypertension Father Aortic aneurysm Father Cancer Father Aortic aneurysm Paternal Grandfather Sudden Neg Hx Family Status - Relation Status Age at Mother Father Paternal Grandfather Neg Hx Normal [facility] No Panel Informationon 09-13 [email or web address] } [facility] Work Phone: [facility] Work Phone: -[facility]o [facility] [address] Work Phone: [facility] Surgical Pathology Depar tmenton 09-13-2022 [facility] Surgical Pathology Department Name YOLI ANTUNEZ JRAmarjit Pathologist: LIZZ LINN MD Date of Procedure: 09/13/2022 Date Received: 09/13/2022 Date Reported 09/26/2022 Submitting Physician: RUBY DAILY M.D. Location: [facility] Other External # FINAL DIAGNOSIS A. GE JUNCTION COLD FORCEPS: -- GASTRIC MUCOSA WITH MILD REACTIVE EPITHELIAL CHANGE AND MILD CHRONIC INFLAMMATION. -- NO SQUAMOUS ESOPHAGEAL MUCOSA IDENTIFIED. -- NO INTESTINAL METAPLASIA IDENTIFIED. -- SEE COMMENT. Comment: Further clinical and endoscopic correlation is recommended. Electronically Signed Out By LIZZ LINN MD/ATB By the signature on this report, the individual or group listed as making the Final Interpretation/Diagnosis certifies that they have reviewed this case. Diagnostic interpretation performed at [facility] [address] [place] [address] Clinical History: R/O Esophagitis and metaplasia Specimens Submitted As: A: GE JUNCTION COLD FORCEPS Gross Description: Received in formalin, labeled with the patient's name and hospital number and A , are 2 fragments of martin, soft tissue aggregating to 0.5 x 0.2 x 0.2 cm. The specimen is submitted in toto in one cassette. [facility] sbs/09/21/2022 [facility] Department of Pathology [address] [place] [address] Normal [facility] Comment on above: Performed By: #### [facility] #### [facility] Surgical Pathology Department [id number] [address] [facility] [address] Upper GI endoscopyon 023 Upper GI endoscopy PATIENTNAME Patient Name: Yoli Antunez EXAMDATE Procedure Date: 09/13/2022 3:41 PM PATIENTID PATIENTACCOUNTNUM PATIENTDOB Date of : 1955 ADMITTYPE Admit Type: Outpatient PATIENTROOM Site: [place] Procedure Room 2 ETHNICITY Ethnicity: Not or RACE Race: White PROVDR Attending MD: Ruby Daily MD, [id number] ENDOPROCEDURENAME Procedure: Upper GI endoscopy INDICATION Indications: Dysphagia, cricopharyngeal web PRIMARYPROVIDER Providers: Ruby Daily MD (Doctor), Vale Mercado RN (Nurse), Sabina Atkins, Slip Injector And Applicator EDREFPROVIDER Referring: Ruby Daily MD CURRENT_MEDS Medicines: Fentanyl 200 micrograms IV, Midazolam 4 mg IV COMPLIC Complications: No immediate complications. ENDOPROCEDURETEXT Procedure: Pre-Anesthesia Assessment: - Prior to the procedure, a History and Physical was performed, and patient medications and allergies were reviewed. The patient is competent. The risks and benefits of the procedure and the sedation options and risks were discussed with the patient. All questions were answered and informed consent was obtained. Patient identification and proposed procedure were verified by the physician and the nurse in the pre-procedure area in the procedure room. Mental Status Examination: alert and oriented. Airway Examination: normal oropharyngeal airway and neck mobility. Respiratory Examination: clear to auscultation. CV Examination: normal. Prophylactic Antibiotics: The patient does not require prophylactic antibiotics. Prior Anticoagulants: The patient has taken no anticoagulant or antiplatelet agents except for aspirin. ASA Grade Assessment: III - A patient with severe systemic disease. After reviewing the risks and benefits, the patient was deemed in satisfactory condition to undergo the procedure. The anesthesia plan was to use moderate sedation / analgesia (conscious sedation). Immediately prior to administration of medications, the patient was re-assessed for adequacy to receive sedatives. The heart rate, respiratory rate, oxygen saturations, blood pressure, adequacy of pulmonary ventilation, and response to care were monitored throughout the procedure. The physical status of the patient was re-assessed after the procedure. - Prior Aspirin/ NSAID therapy: The patient has taken aspirin. After obtaining informed consent, the endoscope was passed under direct vision. Throughout the procedure, the patient's blood pressure, pulse, and oxygen saturations were monitored continuously. The ultra-thin endoscope was introduced through the left nostril, and advanced to the pylorus. The upper GI endoscopy was accomplished without difficulty. The patient tolerated the procedure well. FINDING Findings: Vocal cord dysfunction. A large hiatal hernia was present. A single 6 mm nodule with a localized distribution was found at the gastroesophageal junction, 45cm from nares. Biopsies were taken with a cold forceps for histology. Diffuse atrophic mucosa was found in the entire examined stomach. A web was found at the cricopharyngeus. A guide wire was placed, then the scope was withdrawn. Using the wire as a guide, dilation with Infinity 3000 dilator was performed to 32mm 4atm. SEDATION Moderate Sedation: Moderate (conscious) sedation was administered by the nurse and supervised by the endoscopist. The following parameters were monitored: oxygen saturation, heart rate, blood pressure, and response to care. Total physician intraservice time was 22 minutes. IMPRESS Impression: - Vocal cord dysfunction (inappropriate vocal cord adduction) was found. - Large hiatal hernia. - Nodule found in the esophagus. Biopsied. - Gastric mucosal atrophy. 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 Dilated. EBL Estimated Blood Loss: Estimated blood loss was minimal. ENDORECOMMENDATION Recommendation: - Discharge patient to home (with escort). - Soft diet today. - Return to my office in 3 weeks. - Patient has a contact number available for emergencies. The signs and symptoms of potential delayed complications were discussed with the patient. Return to normal activities tomorrow. Written discharge instructions were provided to the patient. - Continue present medications. CPT_CODES Procedure Code(s): --- Professional --- 27991, Moderate sedation services provided by the same physician or other qualified health respiratory care faculty performing the diagnostic or therapeutic service that the sedation supports, requiring the presence of an independent trained observer to assist in the monitoring of the patient's level of consciousness and physiological status; initial 15 minutes of intraservice time, patient age 5 years or older [address], Unlisted procedure, esophagus ICD_CODES Diagnosis Code(s): --- Professional --- J38.3, O (more content not included)... Normal [facility] Office Visiton 09-11-2022 Follow-up visit [id number] Fr freda Antunez Richelle Isidro 1955 M Date Provider Department Center 09/11/2022 [facility] CARD [facility] Family History Problem Relation Age of Onset Hypertension Mother Cancer Mother Stroke Mother Hypertension Father Aortic aneurysm Father Cancer Father Aortic aneurysm Paternal Grandfather Sudden Neg Hx Family Status - Relation Status Age at Mother Father Paternal Grandfather Neg Hx Level of Service:23921 [place] OFFICE/OUTPATIENT ESTABLISHED LOW MDM 20-29 MIN Reason for Visit and Comments: Follow-up [821882] Normal [facility] SURGICAL PATHOLOGY RESULTSon 09-06-2022 Pathology Report Name BROOKE ANTUNEZAmarjit ISIDRO Pathologist: MAYELIN AVILEZ MD Date of Procedure: 08/30/2022 Date Received: 08/30/2022 Date Reported 09/06/2022 Submitting Physician: BETH DIEGO MD Location: [facility] Copy To/Referring/Attending: RUBY DAILY M.D. Other External # FINAL DIAGNOSIS A. STOMACH, BIOPSY: --REACTIVE GASTROPATHY, NO HELICOBACTER IDENTIFIED. B. GASTROESOPHAGEAL JUNCTION NODULE, BIOPSY: --INFLAMMATORY HYPERPLASTIC POLYP, NO DYSPLASIA IDENTIFIED. C. DISTAL ESOPHAGUS, BIOPSY AT 34 CM: --SQUAMOUS EPITHELIUM, NO SIGNIFICANT HISTOPATHOLOGICAL ABNORMALITIES. D. MID ESOPHAGUS, BIOPSY AT 29 CM: --SQUAMOUS EPITHELIUM, NO SIGNIFICANT HISTOPATHOLOGICAL ABNORMALITIES. Electronically Signed Out By MAYELIN AVILEZ MD/[facility] By the signature on this report, the individual or group listed as making the Final Interpretation/Diagnosis certifies that they have reviewed this case. Diagnostic interpretation performed at [facility] [address] [facility] [address] Clinical History: A) R/O H.pylori B) R/O Adenoma C) R/O EOE D) R/O EOE Specimens Submitted As: A: ANTRUM BX B: NODULE GE JUNCTION BX C: DISTAL ESOPHAGUS AT 34 CM D: MID ESOPHAGUS AT 29 CM Gross Description: A: Received in formalin, labeled with the patient's name and hospital number and A , are multiple fragments of martin, soft tissue aggregating to 3.1 x 0.3 x 0.2 cm. The specimen is submitted in toto in one cassette. DMB B: Received in formalin, labeled with the patient's name and hospital number and B , are multiple fragments of martin, soft tissue aggregating to 0.7 x 0.3 x 0.2 cm. The specimen is submitted in toto in one cassette. DMB C: Received in formalin, labeled with the patient's name and hospital number and C , are multiple fragments of martin, soft tissue aggregating to 1.5 x 0.2 x 0.2 cm. The specimen is submitted in toto in one cassette. DMB D: Received in formalin, labeled with the patient's name and hospital number and D , are multiple fragments of martin, soft tissue aggregating to 1.6 x 0.3 x 0.2 cm. The specimen is submitted in toto in one cassette. 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 Ruby Daily MD. Our office will call you to schedule your appointment(s). If you have any questions or concerns, please contact my office at . 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 I discussed the findings with the patient and have recommended the followin) Dysphagia, with prior ACDF/cervical plate, mild UES narrowing, HH and possible inflammatory narrowing at GEJ on esophagram, but also suspect underlying issues with esophageal motility. Manometry completed 08/30/22 - f/u manometry results - Continue PPI - schedule for esophagoscopy and UES +/- LES dilation. The risks, benefits, and alternatives were discussed with the patient and family, including but not limited to pain, bleeding, infection, transient worsening of swallow, voice, change, and rarely, esophageal perforation. The patient expressed understanding and agreed to proceed. 2) Episodic aphasia, suspect unrelated to swallowing troubles, symptoms appear more central - F/u with neurology as scheduled 2) ADA, CPAP intolerance - pending appt with Dr Michaud 08/17 3) Dysphonia, not bothersome - continue to monitor Chief Complaint An interactive audio and video telecommunication system which permits real time communications between the patient (at the originating site) and provider (at the distant site) was utilized to provide this telehealth service. Verbal consent was requested and obtained from YOLI ANTUNEZ on this date, 09/04/2022 11:30 AM , for a telehealth visit. Dysphagia follow-up History of Present [id number] year old man with history of dysphagia referred to me by Dr. Perrin for swallowing issues. 09/04/22: Here for follow-up. Esophagram completed 08/10/22 with moderate hiatal hernia, possible inflammatory narrowing at GEJ, also area of mucosal irregularity for which endoscopy was recommended. He had manometry placed under endoscopy on 08/30/22, overall esophagus appeared normal on their exam with small 3mm nodule at GEJ that was biopsied. Pathology pending. He reports some days swallowing is fine and other days it's hard to get anything down. Carrots and celery hang up high. Some liquid dysphagia that feels like it is hanging up in his chest. He's been paying more attention to how he is chewing and eating. No other diet modifications He also is having episodes of aphasia. He reports that all of a sudden he will be unable to form words verbally although can write and read. Last occurred after manometry procedure. Has been worked up in the past during these episodes for stroke without findings. Sees a neurologist who thinks it may be autonomic dysfunction, has follow-up next week. No other associated symptoms. He came off on Plavix and is on a baby aspirin. He reports some issues with anesthesia in the past. 07/31/22: He reports about 3 years ago he started having trouble swallowing. He feels like things like liquids and solids are getting hung up in his lower throat/upper chest. Often times he can wash it down but other times he has to cough up food. This occurs about every other meal. Meats are worst but sometimes can occur with water. Getting worse over the past 3 years, episodes more frequent. He does have reflux symptoms, on omeprazole QAM which controls his heartburn. Weight has been steady, would like to lose 15-20 lbs, no weight loss due to swallowing issues. He reports every several months he has aspiration pneumonia, starts with trouble breathing and then gets xray at [facility] and gets antibiotics. About 2 times in the past year. He delayed his care over the past two years 2/2 to cardiac arrhythmia issues - afib, has a watchman and loop implant now. Continues to struggle with SVT. Is currently on plavix - is supposed to be done in a couple of weeks. He did see neurologist - they continue to be without a diagnostic. His biggest symptoms are headaches, TIA, intermittent aphasia. PMH/PSH: afib s/p ablations on plavix (due to come off in 2 weeks), thyroidectomy on levothyroxine, ACDF, ADA ROS performed. All other systems are reviewed and are negative for complaint except as noted in HPI. Studies: I personally reviewed the studies below with the following interpretation. EGD for mano placement 08/30/22 - overall esophagus appeared normal on their exam with moderate HH small 3mm nodule at GEJ that was biopsied. Esophagram 08/10/22 with moderate hiatal hernia, possible inflammatory na (more content not included)... Normal [facility] 36on 09-03-2022 36 Pt has working loop recorder. Sometimes patients are ordered for a 30 day holter monitor even if they have an implanted loop recorder. Normal [facility] [place] 08-30-2022 Beth Diego MD - 10/15/2022 Patient Name: Yoli Antunez Procedure Date: 08/30/2022 7:32 AM Date of : 1955 Admit Type: Outpatient Site: [place] Procedure Room 5 Ethnicity: Not or Race: White Attending MD: ELISEO Williamson, [id number] Procedure: Upper GI endoscopy Indications: Dysphagia for 5 years to both liquids and solids Patient Profile: This is a 67 year old male. Refer to note in patient chart for documentation of history and physical. Providers: ELISEO Williamson (Doctor), Jaylen Lo RN (Nurse), Florentino De Dios, Slip Injector And Applicator, Kristin Mcdaniels RN (Nurse) Referring: Radha Burris MD Provider Care Team: Ruby Daily MD Medicines: Monitored Anesthesia Care Complications: No immediate complications. Procedure: Pre-Anesthesia Assessment: - Prior to the procedure, a History and Physical was performed, and patient medications and allergies were reviewed. The patient is competent. The risks and benefits of the procedure and the sedation options and risks were discussed with the patient. All questions were answered and informed consent was obtained. Patient identification and proposed procedure were verified by the physician, the nurse and the anesthesiologist in the pre-procedure area in the endoscopy suite. Mental Status Examination: alert and oriented. Respiratory Examination: clear to auscultation. CV Examination: regular rate and rhythm. Prophylactic Antibiotics: The patient does not require prophylactic antibiotics. Prior Anticoagulants: The patient has taken Plavix (clopidogrel), last dose was 4 days prior to procedure. After reviewing the risks and benefits, the patient was deemed in satisfactory condition to undergo the procedure. The anesthesia plan was to use monitored anesthesia care (MAC). Immediately prior to administration of medications, the patient was re-assessed for adequacy to receive sedatives. The heart rate, respiratory rate, oxygen saturations, blood pressure, adequacy of pulmonary ventilation, and response to care were monitored throughout the procedure. The physical status of the patient was re-assessed after the procedure. - Prior Aspirin/ NSAID therapy: The patient has taken aspirin, last dose was 1 day prior to procedure. After obtaining informed consent, the endoscope was passed under direct vision. Throughout the procedure, the patient's blood pressure, pulse, and oxygen saturations were monitored continuously. The endoscope was introduced through the mouth, and advanced to the second part of duodenum. The upper GI endoscopy was accomplished without difficulty. The patient tolerated the procedure well. Findings: The examined esophagus was normal. Random biopsies were taken with a cold forceps in the mid esophagus and in the distal esophagus for histology at 29 and 34 cm, respectively. Verification of patient identification for the specimen was done by the nurse and quality control lab technician using the patient's name and medical record number. Estimated blood loss was minimal. A single 3 mm nodule was found at the gastroesophageal junction, 39 cm from the incisors. Biopsies were taken with a cold forceps for histology. Verification of patient identification for the specimen was done by the nurse and quality control lab technician using the patient's name and medical record number. Estimated blood loss was minimal. Esophagogastric landmarks were identified: the gastroesophageal junction was found at 39 cm from the incisors. A 5 cm hiatal hernia was present. Diffuse atrophic mucosa was found in the entire examined stomach. Diffuse moderately erythematous mucosa was found in the gastric body, in the gastric antrum and in the prepyloric region of the stomach. Biopsies were taken with a cold forceps for histology. Verification of patient identification for the specimen was done by the nurse and quality control lab technician using the patient's name and medical record number. Estimated blood loss was minimal. Patchy mildly erythematous mucosa was found in the duodenal bulb. The second portion of the duodenum was normal. A manometry probe catheter was placed from the right naris under direct endoscopic guidance into the body of the stomach. Moderate Sedation: N/A Impression: - Normal esophagus. - Random biopsies were taken with a cold forceps for histology in the mid esophagus and in the distal esophagus. - Single 3 mm nodule found at the gastroesophageal junction. Biopsied. - 5 cm hiatal hernia. - Diffuse gastric mucosal atrophy. - Moderately erythematous mucosa in the gastric body, antrum and prepyloric region of the stomach. Biopsied. - Mildly erythematous duodenopathy in the bulb. - Normal second portion of the duodenum. - A manometry probe catheter was placed via the right naris un (more content not included)... [facility] Work Phone: Radiology Study observation (narrative) [facility] Work Phone: EGDOrdered By: Beth Diego on 08-30-2022 [facility] Work Phone: No Panel Informationon 08-30 Name BROOKE ANTUNEZ Amarjit Pathologist: MAYELIN AVILEZ MD Date of Procedure: 08/30/2022 Date Rec [facility] Work Phone: [email or web address] } [facility] Work Phone: [facility] Work Phone: Order Reconciliationon 08-30 Order Reconciliation Page 1 Discharge Reconciliation Document Reconciliation Type: Discharge requested on behalf of Beth Diego (Physician) done by Beth Diego) Discharge - Reconciliation: 30-Aug-2022 08:00 by: Beth Diego) Home Medications EnteredHOME MEDICATIONS AT DISCHARGE DateReconciliation Comment/ Additional Information Aspir 81 oral delayed release tablet 1 tab(s) orally once a day 13-Aug-2022 17:06 Aspir 81 oral delayed release tablet 1 tab(s) orally once a day 13-Aug-2022 17:06 Aspir 81 oral delayed release tablet is continued as Aspir 81 oral delayed release tablet benazepril 10 mg oral tablet 1 tab(s) orally once a day 13-Aug-2022 17:04 benazepril 10 mg oral tablet 1 tab(s) orally once a day 13-Aug-2022 17:04 benazepril 10 mg oral tablet is continued as benazepril 10 mg oral tablet calcitriol 0.25 mcg oral capsule 1 cap(s) orally once a day 13-Aug-2022 17:06 calcitriol 0.25 mcg oral capsule 1 cap(s) orally once a day 13-Aug-2022 17:06 calcitriol 0.25 mcg oral capsule is continued as calcitriol 0.25 mcg oral capsule Calcium 500+D oral tablet, chewable 1 tab(s) orally once a day 13-Aug-2022 17:06 Calcium 500+D oral tablet, chewable 1 tab(s) orally once a day 13-Aug-2022 17:06 Calcium 500+D oral tablet, chewable is continued as Calcium 500+D oral tablet, chewable DilTIAZem (Eqv-Dilacor XR) 360 milligram(s) orally once a day 13-Aug-2022 17:03 DilTIAZem (Eqv-Dilacor XR) 360 milligram(s) orally once a day 13-Aug-2022 17:03 DilTIAZem (Eqv-Dilacor XR) is continued as DilTIAZem (Eqv-Dilacor XR) Mirapex 2 milligram(s) orally once a day 13-Aug-2022 17:01 Mirapex 2 milligram(s) orally once a day 13-Aug-2022 17:01 Mirapex is continued as Mirapex omeprazole 20 mg oral delayed release tablet 1 tab(s) orally once a day 13-Aug-2022 17:07 omeprazole 20 mg oral delayed release tablet 1 tab(s) orally once a day 13-Aug-2022 17:07 omeprazole 20 mg oral delayed release tablet is continued as omeprazole 20 mg oral delayed release tablet Plavix 75 mg oral tablet 1 tab(s) orally once a day 13-Aug-2022 17:03 Plavix 75 mg oral tablet 1 tab(s) orally once a day 13-Aug-2022 17:03 Plavix 75 mg oral tablet is continued as Plavix 75 mg oral tablet pyRIDostigmine 60 mg oral tablet 1 tab(s) orally 3 times a day, starting at 1/2 pill a day 13-Aug-2022 17:08 pyRIDostigmine 60 mg oral tablet 1 tab(s) orally 3 times a day, starting at 1/2 pill a day 13-Aug-2022 17:08 pyRIDostigmine 60 mg oral tablet is continued as pyRIDostigmine 60 mg oral tablet Synthroid orally once a day, 175mcg or 150mcg change daily 13-Aug-2022 17:02 Synthroid orally once a day, 175mcg or 150mcg change daily 13-Aug-2022 17:02 Synthroid is continued as Synthroid Uloric 40 mg oral tablet 1 tab(s) orally once a day 13-Aug-2022 17:04 Uloric 40 mg oral tablet 1 tab(s) orally once a day 13-Aug-2022 17:04 Uloric 40 mg oral tablet is continued as Uloric 40 mg oral tablet Vitamin B2 1.25 milligram(s) orally once a day 13-Aug-2022 17:05 Vitamin B2 1.25 milligram(s) orally once a day 13-Aug-2022 17:05 Vitamin B2 is continued as Vitamin B2 Current OrdersDateHOME MEDICATIONS AT DISCHARGE DateReconciliation Comment/ Additional Information Lactated Ringers Infusion IV Bag Volume = 1,000 mL Run at: 100 mL/hr IntraVenous Clinician Notes: Christen-operative order ONLY 30-Aug-2022 07:17 Lactated Ringers Infusion is not required Naloxone Injectable (NARCAN)DOSE = 0.2 mg IntraVenous Push Once, PRN If patient RR below 10, obtunded or unarousableClinician Notes: DO NOT ADMINISTER UNTIL PHYSiCIAN HAS BEEN NOTIFIED AND ASSESSED PATIENT 30-Aug-2022 07:17 Naloxone Injectable is not required Ondansetron Injectable (ZOFRAN)DOSE = 4 mg IntraVenous Push Once, PRN PONV, first lineClinician Notes: Christen-operative order ONLY 30-Aug-2022 07:17 Ondansetron Injectable is not required All Active Home Medications at time of Discharge Reconciliation: 30-Aug-2022 08:00 Aspir 81 oral delayed release tablet 1 tab(s) orally once a day benazepril 10 mg oral tablet 1 tab(s) orally once a day calcitriol 0.25 mcg oral capsule 1 cap(s) orally once a day Calcium 500+D oral tablet, chewable 1 tab(s) orally once a day DilTIAZem (Eqv-Dilacor XR) 360 milligram(s) orally once a day Mirapex 2 milligram(s) orally once a day omeprazole 20 mg oral delayed release tablet 1 tab(s) orally once a day Plavix 75 mg oral tablet 1 tab(s) orally once a day pyRIDostigmine 60 mg oral tablet 1 tab(s) orally 3 times a day, starting at 1/2 pill a day Synthroid orally once a day, 175mcg or 150mcg change daily Uloric 40 mg oral tablet 1 tab(s) orally once a day Vitamin B2 1.25 milligram(s) orally once a day Normal [facility] Surgical Pathology Depar tmenton 08-30-2022 [facility] Surgical Pathology Department Name YOLI ANTUNEZ JR. Pathologist: MAYELIN AVILEZ MD Date of Procedure: 08/30/2022 Date Received: 08/30/2022 Date Reported 09/06/2022 Submitting Physician: BETH DIEGO MD Location: [facility] Copy To/Referring/Attending: RUBY DAILY M.D. Other External # FINAL DIAGNOSIS A. STOMACH, BIOPSY: --REACTIVE GASTROPATHY, NO HELICOBACTER IDENTIFIED. B. GASTROESOPHAGEAL JUNCTION NODULE, BIOPSY: --INFLAMMATORY HYPERPLASTIC POLYP, NO DYSPLASIA IDENTIFIED. C. DISTAL ESOPHAGUS, BIOPSY AT 34 CM: --SQUAMOUS EPITHELIUM, NO SIGNIFICANT HISTOPATHOLOGICAL ABNORMALITIES. D. MID ESOPHAGUS, BIOPSY AT 29 CM: --SQUAMOUS EPITHELIUM, NO SIGNIFICANT HISTOPATHOLOGICAL ABNORMALITIES. Electronically Signed Out By MAYELIN AVILEZ MD/[facility] By the signature on this report, the individual or group listed as making the Final Interpretation/Diagnosis certifies that they have reviewed this case. Diagnostic interpretation performed at [facility] [address] [facility] [address] Clinical History: A) R/O H.pylori B) R/O Adenoma C) R/O EOE D) R/O EOE Specimens Submitted As: A: ANTRUM BX B: NODULE GE JUNCTION BX C: DISTAL ESOPHAGUS AT 34 CM D: MID ESOPHAGUS AT 29 CM Gross Description: A: Received in formalin, labeled with the patient's name and hospital number and A , are multiple fragments of martin, soft tissue aggregating to 3.1 x 0.3 x 0.2 cm. The specimen is submitted in toto in one cassette. DMB B: Received in formalin, labeled with the patient's name and hospital number and B , are multiple fragments of martin, soft tissue aggregating to 0.7 x 0.3 x 0.2 cm. The specimen is submitted in toto in one cassette. DMB C: Received in formalin, labeled with the patient's name and hospital number and C , are multiple fragments of martin, soft tissue aggregating to 1.5 x 0.2 x 0.2 cm. The specimen is submitted in toto in one cassette. DMB D: Received in formalin, labeled with the patient's name and hospital number and D , are multiple fragments of martin, soft tissue aggregating to 1.6 x 0.3 x 0.2 cm. The specimen is submitted in toto in one cassette. DMB dmb/09/04/2022 [facility] Department of Pathology [id number] [place] [address] [address] [facility] Comment on above: Performed By: #### [facility] #### [facility] Surgical Pathology Department [address] [place] [address] Upper GI endoscopyon 023 Upper GI endoscopy PATIENTNAME Patient Name: Yoli Antunez EXAMDATE Procedure Date: 08/30/2022 7:32 AM PATIENTID PATIENTACCOUNTNUM PATIENTDOB Date of : 1955 ADMITTYPE Admit Type: Outpatient PATIENTROOM Site: [place] Procedure Room 5 ETHNICITY Ethnicity: Not or RACE Race: White PROVDR Attending MD: ELISEO Williamson, [id number] ENDOPROCEDURENAME Procedure: Upper GI endoscopy INDICATION Indications: Dysphagia for 5 years to both liquids and solids PTPROFILE Patient Profile: This is a 67 year old male. Refer to note in patient chart for documentation of history and physical. PRIMARYPROVIDER Providers: ELISEO Williamson (Doctor), Jaylen Lo RN (Nurse), Florentino De Dios, Slip Injector And Applicator, Kristin Mcdaniels RN (Nurse) EDREFPROVIDER Referring: Radha Burris MD [facility] Provider Care Team: Ruby Daily MD CURRENT_MEDS Medicines: Monitored Anesthesia Care COMPLIC Complications: No immediate complications. ENDOPROCEDURETEXT Procedure: Pre-Anesthesia Assessment: - Prior to the procedure, a History and Physical was performed, and patient medications and allergies were reviewed. The patient is competent. The risks and benefits of the procedure and the sedation options and risks were discussed with the patient. All questions were answered and informed consent was obtained. Patient identification and proposed procedure were verified by the physician, the nurse and the anesthesiologist in the pre-procedure area in the endoscopy suite. Mental Status Examination: alert and oriented. Respiratory Examination: clear to auscultation. CV Examination: regular rate and rhythm. Prophylactic Antibiotics: The patient does not require prophylactic antibiotics. Prior Anticoagulants: The patient has taken Plavix (clopidogrel), last dose was 4 days prior to procedure. After reviewing the risks and benefits, the patient was deemed in satisfactory condition to undergo the procedure. The anesthesia plan was to use monitored anesthesia care (MAC). Immediately prior to administration of medications, the patient was re-assessed for adequacy to receive sedatives. The heart rate, respiratory rate, oxygen saturations, blood pressure, adequacy of pulmonary ventilation, and response to care were monitored throughout the procedure. The physical status of the patient was re-assessed after the procedure. - Prior Aspirin/ NSAID therapy: The patient has taken aspirin, last dose was 1 day prior to procedure. After obtaining informed consent, the endoscope was passed under direct vision. Throughout the procedure, the patient's blood pressure, pulse, and oxygen saturations were monitored continuously. The endoscope was introduced through the mouth, and advanced to the second part of duodenum. The upper GI endoscopy was accomplished without difficulty. The patient tolerated the procedure well. FINDING Findings: The examined esophagus was normal. Random biopsies were taken with a cold forceps in the mid esophagus and in the distal esophagus for histology at 29 and 34 cm, respectively. Verification of patient identification for the specimen was done by the nurse and quality control lab technician using the patient's name and medical record number. Estimated blood loss was minimal. A single 3 mm nodule was found at the gastroesophageal junction, 39 cm from the incisors. Biopsies were taken with a cold forceps for histology. Verification of patient identification for the specimen was done by the nurse and quality control lab technician using the patient's name and medical record number. Estimated blood loss was minimal. Esophagogastric landmarks were identified: the gastroesophageal junction was found at 39 cm from the incisors. A 5 cm hiatal hernia was present. Diffuse atrophic mucosa was found in the entire examined stomach. Diffuse moderately erythematous mucosa was found in the gastric body, in the gastric antrum and in the prepyloric region of the stomach. Biopsies were taken with a cold forceps for histology. Verification of patient identification for the specimen was done by the nurse and quality control lab technician using the patient's name and medical record number. Estimated blood loss was minimal. Patchy mildly erythematous mucosa was found in the duodenal bulb. The second portion of the duodenum was normal. A manometry probe catheter was placed from the right naris under direct endoscopic guidance into the body of the stomach. SEDATION Moderate Sedation: N/A IMPRESS Impression: - Normal esophagus. - Random biopsies were taken with a cold forceps for histology in the mid esophagus and in the distal esophagus. - Single 3 mm nodule found at the gastroesophageal junction. Biopsied. - 5 cm hiatal hernia. - Diffuse gastric mucosal atrophy. - Moderately erythematous mucosa in the gastric body, antrum and prepyloric re (more content not included)... Normal [facility] Established Visit (Otolaryng ology)on 08-17-2022 Established Visit (Otolaryngology) Diagnoses/Problems Difficulty with CPAP use (V49.89) (Z78.9) ADA on CPAP (327.23,V46.8) (G47.33,Z99.89) Afib (427.31) (I48.91) Bilateral partial vocal cord 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) Patient Discussion/Summary This is an interesting case of a patient that presents with progressive dysphagia, vocal cord paralysis and ADA suggesting neuromuscular component of different nerves including XII. - I will proceed with DISE to characterize level and mechanism of obstruction besides determine patient's candidacy for Inspire therapy. Jaw thrust is to be done to assess airway stability with MAD. Provider Impressions YOLI ANTUNEZ is here today for an initial consultation of their obstructive sleep apnea with CPAP intolerance. Chief Complaint Follow up visit for inability to tolerate CPAP Adult Risk ScreeningAdult Risk Screening_: There are no spiritual/cultural practices/values/needs that are important to know Initial Fall Risk Screening: YOLI has not fallen in the last 6 months. His fall did not result in injury. YOLI does not have a fear of falling. He does not need assistance with sitting, standing or walking. Does not need assistance walking in his home. He does not need assistance in an unfamiliar setting. The patient is not using an assistive device. Fall Risk Screening: Patient is identified as a fall risk. Care Plan: Low Risk: Environmental for all patients and low risk patients: Offer assistance as needed or requested, keep environment free of obstacles, keep floor clean and dry, keep room lighting, wheelchair brakes on, bed/ stretcher locked and in low position if applicable, non-slip footwear if applicable, walker/cane available if needed, side rails up if applicable and pre-emptive toileting. Altered Mobility: none. Alteration in Mental Status: no. Relevant Medical History/Diagnosis: Multiple Dx: . Altered Elimination: no. Medications That May Alter Equilibrium: none. Sensory Deficit: no. Unable or Unwilling to Follow Directions: no. Low: age 65 or older. Pain Scale: On a scale of 0 to 10, the patient rates the pain at 0. Living Will. Living Will: No living will on file. Healthcare POA: No healthcare proxy on file. Declaration of Mental Health Treatment: No mental health treatment on file. Tobacco Screening: YOLI does not use tobacco. Domestic Violence Screen: Does not feel threatened or abused physically, emotionally or sexually. Do you feel UNSAFE? The patient feels safe in the home. Depression/Suicide Screening: During the past 2 weeks, the patient has not felt down, depressed or hopeless. During the past 2 weeks, the patient has not felt little interest or pleasure in doing things. He does not have a risk of suicide. He has not had thoughts of harming others. [place]-SUICIDE SEVERITY RATING SCALE 1. Have you wished you were or wished you could go to sleep and not wake up? -NO 2. Have you actually had any thoughts of killing yourself? - NO 6. Have you done anything, started to do anything, or prepared to do anything to end your life? - NO. Single alcohol screening question: In the past year the patient has had 5 or more drinks (men) or 4 or more drinks (women)? 0 time(s). Single substance abuse screening question: In the past year the patient has used a recreational drug or used a prescription drug for non-medical reasons? 0 time(s). Procedure or Sedation Areas: Not Applicable Nutrition Screening: In the past month, there was not a day when I or anyone in my family went hungry because there was not enough food. Patient Education: The patient denies that they or the person with them has problems with hearing, speaking, seeing, moving around or learning The patient is comfortable filling out medical forms. Food Insecurity: 1. Within the past 12 months, you worried that your food would run out before you got money to buy more: No 2. Within the past 12 months, the food you bought just didn't last and you didn't have money to get more: No History of Present Illness Mr. ANTUNEZ , 1955, referred for an initial consultation with me but established with this practice, with a long history of waking up feeling unrefreshed, excessive daytime fatigue. [place] Sleepiness Scale Score is 16 /24. Fatigue Severity Scale Score is 54 /63. Snoring VAS 3 /10 Sleep study histories: (personally reviewed raw data such as interpretation report, data sheet, hypnogram, and titration table)The patient has been previously diagnosed with obstructive sleep apnea (ADA), in a sleep test performed on 07/12/2020, that showed an Apnea Hypopnea Index (AHI) of 18.5 events per hour. During that night, the lowest 02 saturation was 86 %, and the patient spent 1.7% of total sleep time with 02 sat less than 90%. The apnea index (AI) was 3.4 events per hour. During supine sleep the AHI was 86.4 events per hour (Not enough supine sleep though, 2%) Patient was prescribed CPAP; however, (more content not included)... Normal [facility] Tobacco Screening.on 023 Adult depression screening assessment No [facility] Work Phone: Fall risk assessment a) No falls within the last year [facility] Work Phone: Tobacco use status CPHS b) No [facility] Work Phone: 36on 08-14-2022 36 From: Yoli nuñez Jr. To: Richelle Shen Sent: 08/14/2022 7:10 AM EDT Subject: Plavic Next Saturday the first I'm having a monatri (sp) done where they run a tube down my nose into my stomach. They requested that I contact you regarding if I should stop the Plavic. The time period is about up for it also. Thanks Jamil Van 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 Patient instructed to call if problems. Discharge patient: Achieved all and/or the most significant goal(s). Discussed plan of care with: patient Patient/caregiver agreeable with plan of care. Assessment Patient reports improved following of safe swallow guidelines, with need to increase more especially regarding avoidance of mixed consistencies and consistently tucking his chin with all swallows. Reviewed the following along with ideas to increase habituation: 1. Regular diet with thin liquids 2. Avoid mixed consistencies and straws 3. Small sips only at a slow rate 4. Chin tuck head posture during swallows Patient reports daily practice of the following exercises at least 3 times a day: 1. Lingual press 2. Lisbeth maneuver 3. Gargling exercise 4. Laryngeal elevation (Shaker) exercise 5. Effortful swallow He states he has not noticed much improvement in his swallow function. Monitored performance this date with HEP. Gargling without water triggered coughing which led to significant speech changes. Patient's speech became dysarthric with disfluencies. He stated this happens 1-2 times a day and not always triggered by coughing or voice use. He states he is working with neurology to determine it's etiology. Encouraged in to avoid walking or driving until the episode passes. he states it can last a few minutes - several hours. Encouraged patient to avoid any of the above exercises if they frequently trigger such an event. Otherwise patient instructed to continue to practice several times a day and contact clinician with any concerns. Reason For Visit An interactive audio and video telecommunication system which permits real time communications between the patient (at the originating site) and provider (at the distant site) was utilized to provide this telehealth service. Verbal consent was requested and obtained from YOLI HARMONY on this date, 08/13/2022 03:15 PM , for a telehealth visit. Adult Risk Screening Initial Fall Risk Screening: YOLI has not fallen in the last 6 months. Pain Scale: On a scale of 0 to 10, the patient rates the pain at 0. Umaña Learner(s) are identified by the patient as person(s) most likely to participate in providing care, such as managing medications or taking them to doctors? appointments. Primary Language for learning: Ecuadorean. Insurance Insurance reviewed Visit number: 3 Onset Date: 2022 Medicare Certification Period: Beginnin2022 Endin2022 Subjective Living Environment: home Patient arrival: independent Patient alert and ready to participate in telehealth visit this date. 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 Patient will safety tolerate the LRD without s/s penetration or aspiration with 90% accuracy. Short term goals: 1. Patient will be able to complete oral motor exercises with 90% accuracy. MET 2. Patient will be able to complete pharyngeal strengthening exercises with 90% accuracy. MET 3. Patient will be able to complete specific airway protection techniques with 90% accuracy. MET Treatment Time in clinic started at 1515 Time in clinic ended at 1535 Total time in clinic is 20 minutes. Provided to: patient Response to education: verbalized understanding and demonstrated understanding Patient/caregiver verbalized understanding and agreement: yes CPT Code 50201 Treatment of swallowing dysfunction and/or oral function for feeding Signatures Electronically signed by : Yoanna Quigley CCC-ROUTE SALES DRIVER; Aug 13 2022 3:44PM EST (Author) Normal [facility] GI ESOPHAGRAMon 08-10-2022 GI ESOPHAGRAM Patient Name: YOLI ANTUNEZ STUDY: GI ESOPHAGRAM; ; 08/10/2022 1:49 pm INDICATION: assess motility, r/o achalasia, assess mass/lesions R13.12: Dysphagia, oropharyngeal phase. COMPARISON: None. ACCESSION NUMBER(S): [id number] ORDERING CLINICIAN: RUBY DAILY TECHNIQUE: Fluoroscopic guided single and double contrast barium esophagram. 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 Free flow of contrast noted through the cervical, thoracic esophagus and the GE junction. Metallic hardware noted in the cervical spine. Moderate-sized hiatal hernia noted, with slight irregularity and mucosal fold thickening in the GE junction/hiatal hernia region. No evidence of any obstruction to the flow of contrast. No evidence of any strictures. Few episodes of reflux noted extending up to the thoracic inlet in the supine position. Fluoroscopic time was 2 minutes 6 seconds. IMPRESSION: Moderate-sized hiatal hernia noted, few episodes of reflux noted extending up to the thoracic inlet. In the moderate-sized hiatal hernia, there is some areas of mucosal fold thickening, with questionable irregularity, recommend endoscopy for further characterization to exclude other underlying pathology/mass. Findings were relayed to the referring physician by notify by Dr. South at the time of interpretation of this study. Electronically signed by: JAE SOUTH MD Normal [facility] Radiologyon 08-10-2022 XR Esophagus Views W contrast PO Normal [facility] Work Phone: 36on 08-07-2022 36 Patient will use the [facility] in [place] if ok to prescribe [facility] 36on 08-02-2022 36 Yes, he is willing t o try and use a good rx [facility] 36 He calls back to rep ort insurance will not cover pyridostigmine [facility] 36on 08-01-2022 36 Patient has increase d headaches and dizziness on the venlafaxine. I told him to stop over the next few days since he hasn't been on it for long. 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 Ruby Daily MD. Our office will call you to schedule your appointment(s). If you have any questions or concerns, please contact my office at . 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 I discussed the findings with the patient and have recommended the followin) Dysphagia, suspect underlying issues with esophageal motility - dedicated esophagram - orders for manometry - Continue PPI - follow-up VV with me 09/04 if studies are complete, may need esophagoscopy +/- dilation during my next visit 09/13 2) ADA, CPAP intolerance - pending appt with Dr Michaud 08/17 3) Dysphonia, not bothersome - continue to monitor Chief Complaint An interactive audio and video telecommunication system which permits real time communications between the patient (at the originating site) and provider (at the distant site) was utilized to provide this telehealth service. Verbal consent was requested and obtained from YOLI ANTUNEZ on this date, 07/31/2022 12:30 PM , for a telehealth visit. Swallow History of Present Ujtzprn18 year old man with history of dysphagia referred to me by Dr. Perrin for swallowing issues. 07/31/22: He reports about 3 years ago he started having trouble swallowing. He feels like things like liquids and solids are getting hung up in his lower throat/upper chest. Often times he can wash it down but other times he has to cough up food. This occurs about every other meal. Meats are worst but sometimes can occur with water. Getting worse over the past 3 years, episodes more frequent. He does have reflux symptoms, on omeprazole QAM which controls his heartburn. Weight has been steady, would like to lose 15-20 lbs, no weight loss due to swallowing issues. He reports every several months he has aspiration pneumonia, starts with trouble breathing and then gets xray at [facility] and gets antibiotics. About 2 times in the past year. He delayed his care over the past two years 2/2 to cardiac arrhythmia issues - afib, has a watchman and loop implant now. Continues to struggle with SVT. Is currently on plavix - is supposed to be done in a couple of weeks. He did see neurologist - they continue to be without a diagnostic. His biggest symptoms are headaches, TIA, intermittent aphasia. PMH/PSH: afib s/p ablations on plavix (due to come off in 2 weeks), thyroidectomy on levothyroxine, ACDF, ADA ROS performed. All other systems are reviewed and are negative for complaint except as noted in HPI. Studies: I personally reviewed the studies below with the following interpretation. MBS 07/18/22 with cervical plate, narrowed UES but no obvious bar/web, eso screen with decreased primary stripping wave and stasis and intraesophageal regurgitation. Laryngoscopy 07/17/22 ([facility]) - mild vocal cord paresis R >L with glottic insufficiency. 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) Past Medical History History of Calcium kidney stone (592.0) (N20.0) History of hypertension (V12.59) (Z86.79) History of TIA (transient ischemic attack) (435.9) (G45.9) Surgical History History of Adenoidectomy History of Appendectomy History of Cervical vertebral fusion History of Knee surgery Social History No illicit drug use Non-smoker (V49.89) (Z78.9) Social alcohol use (V49.89) (Z78.9) Allergies amoxicillin Recorded By: Joana Smith; 03/03/2019 11:20:29 AM Penicillins Recorded By: Joana Smith; 03/03/2019 11:20:29 AM Tikosyn CAPS Recorded By: Peggy Rivas; 07/31/2022 11:46:43 AM Current Meds Medication NameInstruction Calcitriol 0.25 MCG Oral Capsule Calcium TABS dilTIAZem HCl ER 180 MG Oral Capsule Extended Release 24 Hour Levothyroxine Sodium 150 MCG Oral Capsule Levothyroxine Sodium 175 MCG Oral Tablet Mirapex 1 MG TABSTAKE 1 TABLET TWICE DAILY. Omeprazole 20 MG (more content not included)... 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 Discussed plan of care with: patient Patient/caregiver agreeable with plan of care. Assessment Patient's recent MBSS was reviewed in detail. Answered all questions/concerns. Initiated swallow therapy this date to target both the oral and pharyngeal dysphagia he demonstrated during his swallow study. Patient instructed in the following safe swallow guidelines as identified includin. Regular diet with thin liquids 2. Avoid mixed consistencies and straws 3. Small sips only at a slow rate 4. Chin tuck head posture during swallows Patient instructed in the following strengthening exercises all to be completed 10 times, 5 times a day: 1. Lingual press 2. Lisbeth maneuver 3. Gargling exercise 4. Laryngeal elevation (Shaker) exercise 5. Effortful swallow Clinician modeled all techniques and accurate patient follow through confirmed. Handouts emailed to facilitate optimal home carryover. Adult Risk Screening There are no spiritual/cultural practices/values/needs that are important to know Initial Fall Risk Screening: YOLI has not fallen in the last 6 months. Pain Scale: On a scale of 0 to 10, the patient rates the pain at 0. Umaña Learner(s) are identified by the patient as person(s) most likely to participate in providing care, such as managing medications or taking them to doctors? appointments. Primary Language for learning: Ecuadorean. Insurance Insurance reviewed Visit number: 2 Onset Date: 2022 Medicare Certification Period: Beginnin2022 Endin2022 Subjective Living Environment: home Patient arrival: independent Patient alert and ready to participate in telehealth visit this date. 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 Patient will safety tolerate the LRD without s/s penetration or aspiration with 90% accuracy. Short term goals: 1. Patient will be able to complete oral motor exercises with 90% accuracy. 2. Patient will be able to complete pharyngeal strengthening exercises with 90% accuracy. 3. Patient will be able to complete specific airway protection techniques with 90% accuracy. Treatment Time in clinic started at 1430 Time in clinic ended at 1455 Total time in clinic is 25 minutes. Provided to: patient Response to education: verbalized understanding, demonstrated understanding and needs reinforcement Patient/caregiver verbalized understanding and agreement: yes CPT Code 38058 Treatment of swallowing dysfunction and/or oral function for feeding Signatures Electronically signed by : Yoanna Quigley CCC-ROUTE SALES DRIVER; Jul 31 2022 4:43PM EST (Author) Normal [facility] Consulton 07-20-2022 Consult [id number] Fr freda Antunez Jr. 1955 M Date Provider Department Center 07/20/2022 JACKIE HASTINGS [facility] CARD [facility] HeartVAS Family History Problem Relation Age of Onset Hypertension Mother Hypertension Father Aortic aneurysm Father Aortic aneurysm Paternal Grandfather Sudden Neg Hx Family Status - Relation Status Age at Mother Father Paternal Grandfather Neg Hx Level of Service:92614 [place] OFFICE/OUTPATIENT ESTABLISHED MOD MDM 30-[address] [facility] GI COMP PHARYNGEAL SPEECH EV [place] 07-18-2022 GI COMP PHARYNGEAL SPEECH EVAL Patient Name: YOLI ANTUNEZ STUDY: GI COMP PHARYNGEAL SPEECH EVAL;; 07/18/2022 11:55 am INDICATION: dysphagia 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 COMPARISON: None. ACCESSION NUMBER(S): [id number] ORDERING CLINICIAN: RANJANA PERRIN TECHNIQUE: MBSS completed. Informed verbal consent obtained prior to completion of exam. Trials of thin, nectar thick, honey thick, puree, soft-solids, and regular solids given. Fluoroscopy time : 3 minutes, 2 seconds. ROUTE SALES DRIVER: Osmel Lozano M.S., CCC-ROUTE SALES DRIVER Phone/Pager: Can be contacted via [employer] or SPEECH FINDINGS: Reason for referral: A modified barium swallow was ordered due to patient having difficulty with food getting stuck in his throat and coughing during and post meals. Patient hx: Patient reports past medical history of remote pneumonia, COPD, GERD, ulcers, TIA with aphasia, lower back surgery L4-L5 and cervical neck fusion, A-fib, 3 ablations, and vocal cord weakness. Patient also stated that he recently had his gallbladder removed. Respiratory status: WFL Previous diet: Regular with thin liquids Time with patient today in radiology suite: 11:05 AM to 11:55 AM for 50 minutes. FINAL SPEECH RECOMMENDATIONS Diet recommendations/feeding strategies: Regular diet with thin liquids and no mixed consistencies. A chin tuck technique is also recommended with small single sips of thin liquids. Follow-up speech therapy recommended: Yes. Recommend outpatient therapy 1 time per week for 4 to 6 weeks for dysphagia therapy. Outpatient speech therapy orders will be requested from physician. Short term goals: 1. Patient will be able to complete oral motor techniques with 90% accuracy. 2. Patient will be able to complete base of tongue techniques with 90% accuracy. 3. Patient will be able to complete airway protection techniques with 90% accuracy. 4. Patient will be able to use a chin tuck technique with 100% accuracy. 5. Patient will be able to complete a home program 2-3 times per day. care home goals: Patient will be able to tolerate regular diet and thin liquids without overt signs symptoms of aspiration or pulm compromise. Education provided: Yes. Educated patient during the study and post study regarding results and recommendations of MBS study. Treatment Provided today: Completed treatment session for dysphagia during and post modified barium swallow study. Patient was educated and demonstration was given regarding use of chin tuck technique, small sips, and use of compensatory swallowing techniques. Patient was able to demonstrate ability to complete chin tuck technique effectively and to use compensatory swallowing techniques. Patient was given oral motor techniques to practice at home 2-3 times per day. Patient was able to demonstrate completion of each task x3-5 repetitions of each. Additional consult suggested: N/A Repeat study/ dc plan: Repeat MBS study in 4-6 weeks Mechanics of the swallow summary: *Oral phase: Patient's oral phase of the swallow characterized by minimal weakness in bolus propulsion. Patient had minimal to mild oral residuals post swallow with thin liquids and mild to moderate oral residuals post swallow with solids. He had a moderate oral delay with cookie trial due to prolonged mastication. *Pharyngeal phase: Patient's pharyngeal phase of the swallow characterized by premature entry with all consistencies tested. Patient had a delay in the swallow with the mixed consistency fruit trial. Patient had moderately reduced epiglottic inversion throughout the study. Penetration occurred with thin liquid trials that resulted in trace silent aspiration with a 20 mL cup sip and 60 mL straw sip. A chin tuck technique was effective at preventing penetration and aspiration with single small sips of thin liquids. Patient did have a persistent cough throughout the study but only had coughing directly after aspiration with the mixed fruit consistency. *Esophageal phase: A-P view with 20 mL nectar thick liquid revealed slow clearance with mild retrograde flow of barium contrast at the level of the aortic notch. With pureed consistency foods patient had slow clearance of the barium contrast throughout the esophagus. See radiologist portion of this report for additional information regarding the esophageal phase of the swallow. ROUTE SALES DRIVER impressions with severity rating: Patient presents with a mild-moderate oral dysphagia and mild-moderate pharyngeal dysphagia. Patient's pharyngeal phase of the swallow characterized by penetration with trace silent aspiration with thin liquids. A chin tuck technique was effective at preventing penetration and aspiration of thin liquids. Patient also had penetration with aspiration followed by coughing with mixed consistency fruits. A-P view revealed slow clearance of the 20 mL nectar thi (more content not included)... Normal [facility] No Panel Informationon 07-18 Normal [facility] Work Phone: Swallow Evaluation v2-Modifi ed Barium Swallow, SLPon 07-18-2022 Swallow Evaluation v2-Modified Barium Swallow, ROUTE SALES DRIVER Rehab: Info: Time IN11:05 Time OUT11:55 Total Treatment [id number] Evaluation TypeModified Barium Swallow, ROUTE SALES DRIVER Impression: Assessment (Swallow Eval)ROUTE SALES DRIVER impressions with severity rating: [Patient presents with a mild-moderate oral dysphagia and mild-moderate pharyngeal dysphagia. Patient's pharyngeal phase of the swallow characterized by penetration with trace silent aspiration with thin liquids. A chin tuck technique was effective at preventing penetration and aspiration of thin liquids. Patient also had penetration with aspiration followed by coughing with mixed consistency fruits. A-P view revealed slow clearance of the 20 mL nectar thick trial with mild retrograde flow of barium contrast at level of the aortic notch. Puree consistency trial also revealed slow clearance. See radiologist fortune of this report for additional information regarding esophageal phase of the swallow. Recommending a regular diet with thin liquids and no mixed consistencies. Also recommending use of a single sip chin tuck technique with thin liquids. Outpatient speech therapy has been recommended and orders for outpatient speech therapy will be requested from MD. 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 : dysphagia Otolaryngology - Sleep Surgery Referral Evaluation and Treatment consideration of sleep surgery with dr. michaud Status: Hold For - Scheduling Requested for: 17Jul2022 Start: Omeprazole 20 MG Oral Capsule Delayed Release; TAKE 1 CAPSULE DAILY 30 MINUTES BEFORE DINNER Patient Discussion/Summary 1. You will be started on Omeprazole 20 mg, 30 minutes before dinner. 2. We ordered a repeat swallow study 3. You were referred to Dr. Michaud for management of ADA Welcome to Dr. Perrin?s clinic. We are here to assist you through your ENT care at [facility]. Dr. Perrin is an ENT surgeon who specializes in voice, airway and swallowing issues. This means that she specializes in taking care of patients with complex voice, airway and swallowing problems. Dr. Perrin's office number is [phone]. Please use this number to contact her and her care team regardless of which office you use to access care. This number is the most direct way to communicate with all the members of the care team. Dr. Perrin?s payroll secretary answers the office phone from 9am-4pm Mon-Fri. Call [phone] and push 2. She can help you with scheduling of appointments, general questions and information. You may need to leave a message if she is helping another patient. In this case, someone from the team will call you back the same day if you leave your message before 3pm, or the next business morning. Dr. Perrin?s nurse and can be reached by calling [phone]. We make every effort to return phone calls the same day. If you are in need of urgent assistance after hours, please call [phone] and ask for ENT dispersion mixer. Dr. Perrin works closely with speech therapists as they work together to help solve your issues with speech and swallowing. You may see a speech therapist during your appointment if Dr. Perrin feels this is needed. If you need to reach speech therapy to talk with a therapist or to schedule an appointment, please call [phone]. Others who may be included in your care are dieticians, social workers, audiologists, neurologists, and physical therapists. Dr. Perrin will provide these referrals as needed. Please let her know if you would like to request a specific referral. For your convenience, Dr. Perrin sees patients at different [facility] locations including the [facility], and [facility] at the [facility]. While we try to make your appointments as convenient as possible, occasionally a visit to another location may be necessary to provide the best care for you. Dr. Perrin makes every effort to run on time for your appointments. Therefore, if you are more than 30 minutes late unrelated to a scan or another appointment such therapy or audiology, your appointment will need to be rescheduled to another day. We appreciate your understanding. We look forward to working with you to meet your healthcare goals. By signing my name below, Francine Read Scribe, attest that this documentation has been prepared under the direction and in the presence of Dr. Ranjana Perrin MD. All medical record entries made by the Nishibe were at my direction and personally dictated by me. I have reviewed the chart and agree that the record accurately reflects my personal performance of the history, physical exam, discussion and plan. 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 Today's exam shows mild vocal cord paresis R >L with glottic insufficiency. At this time, we will not treat his voice changes as this is not bothersome for him. Swallowing is his major complaint and at this time there are no pooling of secretions and he is stronger than last visit. we need a repeat MBS He also has diagnosed ADA with inability to tolerate CPAP/BiPAP and is amenable to meet with Dr. Michaud to discuss potential surgical interventions We discussed: 1. We will order a repeat MBS to evaluate his swallow changes. If there is CP hypertrophy, we will perform a CP Botox and CP dilation. We will consider referral to Dr. Daily if timing works well. He is amenable to this. 2. You were referred to Dr. Michaud for management of ADA. Records of his prior PSG will be requrested from Dr. Napier 3. You will be started on Omeprazole (more content not included)... Normal [employer] Tobacco Screening.on 023 Adult depression screening assessment [facility] Work Phone: Fall risk assessment b) One or more falls in the last year -Otolaryngo [facility] 4100 Work Phone: Tobacco use status [facility] b) [facility] Work Phone: MR HEAD ANGIO WO IV CONTRAST on 07-09-2022 MR HEAD ANGIO WO IV CONTRAST MR HEAD ANGIO WO IV CONTRAST 07/09/2022 1:50 PM History: Episodes of aphasia and headache. 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 Chronic migraine. PROTOCOL: MRI examination to evaluate any arterial vascular pathology CONTRAST: None COMPARISON: CT head from 05/23/2022 FINDINGS: The superior cerebellar arteries, posterior inferior cerebellar arteries, and the basilar artery are within normal limits. The posterior cerebral arteries are unremarkable. The intracranial segments of the internal carotid arteries are within normal limits. There are normal anterior and middle cerebral arteries. Anterior communicating artery is patent. Posterior communicating arteries are present on the left side and very small in caliber on the right side.. IMPRESSION: No focal stenosis, occlusion, or aneurysmal dilatation. Complete minto of Michel. Electronically signed: Cher Castaneda. [facility] Comment on above: Order Comment: MRV/M RA BRAIN AND MRA NECK ORDER IN [facility] ORDERING COMMENTS NO CONTRAST MR NECK ANGIO WO IV CONTRAST on 07-09-2022 MR NECK ANGIO WO IV CONTRAST MR NECK ANGIO WO IV CONTRAST 07/09/2022 1:51 PM CLINICAL INDICATIONS: Aphasia, transient ischemic attack, dizziness Technique: Multisequence, multiplanar MR angiography of the neck performed without contrast. COMPARISON: None. FINDINGS: Accounting for significantly, as evaluation due to patient motion artifact, there is no gross evidence for flow-limiting stenosis of the bilateral extracranial carotid utilizing the NASCET criteria. No gross evidence for flow-limiting stenosis of the bilateral vertebral arteries accounting for motion artifact. IMPRESSION: No gross evidence for flow-limiting stenosis of bilateral extrarenal vertebral or carotid arteries accounting for extensive patient motion artifact. If persistent concern for an abnormality of the carotid or vertebral arteries, consider CTA if clinically indicated. Electronically signed: Devante Cox. [facility] Comment on above: Order Comment: MRV/M RA BRAIN AND MRA NECK ORDER IN [facility] ORDERING COMMENTS NO CONTRAST 36on 06-07-2022 36 What if we did 2 tab lets of diltiazem 180mg CD tablets? His insurance covered this dose in the past. Or did he get new insurance? [facility] BNPon 06-04-2022 Natriuretic peptide B (Bld) [Mass/Vol] 182.0 pg/mL Normal <=900.0 [facility] Comment on above: Performed By: #### H STROPN #### [facility] [address] [place] [address] Dr. Kulwant Brennan CARDIAC MAYELIN ADMITon 023 CK [Catalytic activity/Vol] 86 U/L Normal 39-308 [facility] Comment on above: Performed By: #### L ACT #### [facility] [address] [place] [address] Dr. Kulwant Brennan CK.MB [Mass/Vol] 0.84 ng/mL Normal <=3.60 [facility] Comment on above: Performed By: #### L ACT #### [facility] [address] [place] [address] Dr. Kulwant Brennan HSTROP 4.6 pg/mL Normal 4.0-76.1 [facility] Comment on above: Result Comment: CUT- OFF POINTS HAVE BEEN ESTABLISHED BASED ON THE FOURTH UNIVERSAL DEFINITIONS OF MYOCARDIAL INFARCTION. THE UPPER REFERENCE LIMIT (URL) OF TROPONIN, DEFINED THE 99TH PERCENTILE OF cTnI DISTRIBUTION IN A REFERENCE POPULATION, HAS BEEN CONFIRMED THE DECISION THRESHOLD FOR [place] DIAGNOSIS. Performed By: #### L ACT #### [facility] [address] [place] [address] Dr. Kulwant Brennan EFRAIN 52 ng/mL Normal 16-96 [facility] Comment on above: Performed By: #### L ACT #### [facility] [address] [place] [address] Dr. Kulwant Brennan CBC AUTO DIFFon 06-04-2022 BASO # 0.1 103/ul Normal 0.0-0.1 [facility] Comment on above: Performed By: #### L ACT #### [facility] [address] [place] [address] Dr. Kulwant Brennan Basophils/100 WBC (Bld) 0.5 % Normal 0.2-2.0 [facility] Comment on above: Performed By: #### L ACT #### [facility] [address] [place] [address] Dr. Kulwant Brennan EO # 0.2 103/ul Normal 0.0-0.7 [facility] Comment on above: Performed By: #### L ACT #### [facility] [address] [place] [address] Dr. Kulwant Brennan Eosinophils/100 WBC (Bld) 2.6 % Normal 0.9-7.0 [facility] Comment on above: Performed By: #### L ACT #### [facility] [address] [address] [address] Kulwant Brennan Erythrocyte distribution width (RBC) [Ratio] 15.0 % Normal 11.0-15.0 [facility] Comment on above: Performed By: #### L ACT #### [facility] [address] [address] [address] Kulwant Brennan Hematocrit (Bld) [Volume fraction] 42.3 % Normal 42.0-54.0 [facility] Comment on above: Performed By: #### L ACT #### [facility] [address] [place] [address] Dr. Kulwant Brennan Hemoglobin (Bld) [Mass/Vol] 14.0 g/dL Normal 14.0-18.0 [facility] Comment on above: Performed By: #### L ACT #### [facility] [address] [place] [address] Dr. Kulwant Brennan IG # 0.10 10e3/ul Critically high 0.00-0.03 [facility] Comment on above: Performed By: #### L ACT #### [facility] [address] [place] [address] Dr. Kulwant Brennan IG % 1.1 % Critically high 0.0-0.5 [facility] Comment on above: Performed By: #### L ACT #### [facility] [address] [place] [address] Dr. Kulwant Brennan LYMPH # 2.7 103/ul Normal 1.2-3.8 [facility] Comment on above: Performed By: #### L ACT #### [facility] [address] [place] [address] Dr. Kulwant Brennan Lymphocytes/100 WBC (Bld) 29.1 % Normal 20.5-60.0 [facility] Comment on above: Performed By: #### L ACT #### [facility] [address] [place] [address] Dr. Kulwant Brennan MANUAL DIFF REQ NO Normal [facility] Comment on above: Performed By: #### L ACT #### [facility] [address] [address] [address] Kulwant Brennan MCH (RBC) [Entitic mass] 27.0 pg Normal 25.9-34.0 [facility] Comment on above: Performed By: #### L ACT #### [facility] [address] [place] [address] Dr. Kulwant Brennan MCHC (RBC) [Mass/Vol] 33.1 g/dL Normal 29.9-35.2 [facility] Comment on above: Performed By: #### L ACT #### [facility] [address] [place] [address] Dr. Kulwant Brennan MCV (RBC) [Entitic vol] 81.5 fL Normal 80.0-94.0 [facility] Comment on above: Performed By: #### L ACT #### [facility] [address] [place] [address] Dr. Kulwant Brennan MONO # 1.0 103/ul Critically high 0.3-0.8 [facility] Comment on above: Performed By: #### L ACT #### [facility] [address] [place] [address] Dr. Kulwant Brennan Monocytes/100 WBC (Bld) 10.5 % Normal 1.7-12.0 [facility] Comment on above: Performed By: #### L ACT #### [facility] [address] [place] [address] Dr. Kulwant Brennan NEUT # 5.1 103/ul Normal 1.4-6.5 [facility] Comment on above: Performed By: #### L ACT #### [facility] [address] [place] [address] Dr. Kulwant Brennan Neutrophils/100 WBC (Bld) 56.2 % Normal 43.0-75.0 [facility] Comment on above: Performed By: #### L ACT #### [facility] [address] [place] [address] Dr. Kuwlant Brennan Platelet mean volume (Bld) [Entitic vol] 10.0 fL Normal 9.5-13.5 [facility] Comment on above: Performed By: #### L ACT #### [facility] [address], [place] [address] Dr. Kulwant Brennan PLT 251 103/ul Normal 150-450 [facility] Comment on above: Performed By: #### L ACT #### [facility] [address], [place] [address] Dr. Kulwant Brennan RBC 5.19 106/ul Normal 4.70-6.10 [facility] Comment on above: Performed By: #### L ACT #### [facility] [address], [place] [address] Dr. Kulwant Brennan WBC 9.1 103/ul Normal 4.0-11.0 [facility] Comment on above: Performed By: #### L ACT #### [facility] [address] [address] [address] STROKE HEAD WOon 06-04-[address] STROKE HEAD WO EXAMINATION: CT STRO KE HEAD WO HISTORY: Pain . History of cardiac ablations x3. Irregular heartbeat. COMPARISON: CT 06/12/2019. TECHNIQUE: CT examination of the head without IV contrast. Dose reduction techniques were achieved by using automated exposure control and/or adjustment of mA and/or kV according to patient size and/or use of iterative reconstruction technique. FINDINGS: There is no evidence of acute intracranial hemorrhage, midline shift or abnormal extra-axial fluid collection identified. Cerebral hemispheres appear symmetric with preservation of the lind-white interface. The ventricles appear symmetric. Basilar cisterns and posterior fossa structure details appear preserved. Bilateral cataract surgery. The visualized paranasal sinuses and mastoid air cells appear clear. No calvarial fracture is seen. IMPRESSION: 1. No acute intracranial process is identified. Critical results were called by Dr. Conner Tang, DO to Dr. Sauceda At 06/04/2022 7:06 AM EST. Electronically authenticated by: CONNER TANG Date: 2022-06-04 07:16 Normal [facility] Covid-19 PCR (CVDTB)on 05-23 SARS-CoV-2 (COVID-19) RNA MIKE+probe Ql (Unsp spec) Not detected Normal NOT DETECTED [facility] Comment on above: Result Comment: When diagnostic testing is negative, the possibility of a false negative should be considered in the context of a patient's recent exposures and the presence of clinical signs and symptoms consistent with SARS-CoV-2. This test is not yet approved or cleared by the [place] FDA. When there are no FDA-approved or cleared tests available, and other criteria are met, FDA can make tests available under an emergency access mechanism called an Emergency Use Authorization (EUA). The EUA for this test is supported by the [place] of Health and Human Service's declaration that circumstances exist to justify the emergency use of in vitro diagnostics for the detection and/or diagnosis of the virus that causes COVID-19. This EUA will remain in effect for the duration of the COVID-19 declaration justifying emergency of IVDs, unless it is terminated or revoked by the FDA (after which the test may no longer be used). Performed By: #### H DEBRAPN #### [facility] [address] [place] [address] Dr. Kulwant Brennan D-DIMERon 06-04-2022 D-DIMER 0.38 mg/L FEU Normal <=0.59 [facility] Comment on above: Performed By: #### D DIM #### [facility] [address] [place] [address] Dr. Kulwant Brennan D-DIMER COMMENTS SEE BELOW Normal [facility] Comment on above: Result Comment: Incr eases in D-Dimer concentration observed with thromboembolic events can be variable due to localization, size, and age of the thrombus. Therefore, a thromboembolic event cannot be diagnosed with certainty on the basis of the reference range. D-Dimers may also be elevated for a variety of disorders including: advanced age, , coronary disease, cancer, liver disease, infection, inflammation, hematoma, DIC, trauma, post-surgery, diabetes, thrombolytic or anticoagulant therapy, stress, and generalized hospitalization. Performed By: #### D DIM #### [facility] [address] [place] [address] Dr. Kulwant Brennan PROF 14(COMP METB)on 023 Albumin [Mass/Vol] 4.1 g/dL Normal 3.4-5.0 [facility] Comment on above: Performed By: #### H STROPN #### [facility] [address] [address] [address] Kulwant Brennan Albumin/Globulin [Mass ratio] 1.1 {ratio} Normal [facility] Comment on above: Performed By: #### H STROPN #### [facility] [address] [address] [address] Kulwant Brennan ALP [Catalytic activity/Vol] 78 U/L Normal 46-116 [facility] Comment on above: Performed By: #### H STROPN #### [facility] [address] [place] [address] Dr. Kulwant Brennan ALT [Catalytic activity/Vol] 26 U/L Normal 16-63 [facility] Comment on above: Performed By: #### H STROPN #### [facility] [address] [place] [address] Dr. Kulwant Brennan Anion gap [Moles/Vol] 16.3 mmol/L Normal [facility] Comment on above: Performed By: #### H STROPN #### [facility] [address] [place] [address] Dr. Kulwant Brennan AST [Catalytic activity/Vol] 18 U/L Normal 15-37 [facility] Comment on above: Performed By: #### H STROPN #### [facility] [address] [place] [address] Dr. Kulwant Brennan Bilirubin [Mass/Vol] 0.4 mg/dL Normal 0.2-1.0 [facility] Comment on above: Performed By: #### H STROPN #### [facility] [address] [place] [address] Dr. Kulwant Brennan Calcium [Mass/Vol] 8.4 mg/dL Critically low 8.5-10.1 [facility] Comment on above: Performed By: #### H STROPN #### [facility] [address] [place] [address] Dr. Kulwant Brennan Chloride [Moles/Vol] 104 mmol/L Normal 98-107 [facility] Comment on above: Performed By: #### H STROPN #### [facility] [address] [place] [address] Dr. Kulwant Brennan CO2 [Moles/Vol] 24.8 mmol/L Normal 21.0-32.0 [facility] Comment on above: Performed By: #### H STROPN #### [facility] [address] [address] [address] Kulwant Brennan Creatinine [Mass/Vol] 1.52 mg/dL Critically high 0.70-1.30 [facility] Comment on above: Performed By: #### H STROPN #### [facility] [address] [address] [address] Kulwant Brennan EGFR-AF EMIRATI 55 mL/min/1.73m2 Critically low >=60 [facility] Comment on above: Performed By: #### H STROPN #### [facility] [address] [address] [address] Kulwant Brennan EGFR-NON AF EMIRATI 46 mL/min/1.73m2 Critically low >=60 [facility] Comment on above: Performed By: #### H STROPN #### [facility] [address] [address] [address] Kulwant Brennan Globulin (S) [Mass/Vol] 3.6 g/dL Normal [facility] Comment on above: Performed By: #### H STROPN #### [facility] [address] [address] [address] Kulwant Brennan Glucose [Mass/Vol] 102 mg/dL Normal 74-106 [facility] Comment on above: Performed By: #### H STROPN #### [facility] [address] [address] [address] Kulwant Brennan Potassium [Moles/Vol] 4.1 mmol/L Normal 3.5-5.1 [facility] Comment on above: Performed By: #### H STROPN #### [facility] [address] [address] [address] Kulwant Brennan Protein [Mass/Vol] 7.7 g/dL Normal 6.4-8.2 [facility] Comment on above: Performed By: #### H STROPN #### [facility] [address] [address] [address] Kulwant Brennan Sodium [Moles/Vol] 141 mmol/L Normal 136-145 [facility] Comment on above: Performed By: #### H DEBRAPN #### [facility] [address] [address] [address] Kulwant Brennan Urea nitrogen [Mass/Vol] 30.0 mg/dL Critically high 7.0-18.0 [facility] Comment on above: Performed By: #### H STROPN #### [facility] [address] [address] [address] Kulwant Brennan Urea nitrogen/Creatinine [Mass ratio] 19.7 mg/mg Normal [facility] Comment on above: Performed By: #### H DEBRAPN #### [facility] [address] [place] [address] Dr. Kulwant Brennan PROTIMEon 06-04-2022 INR Coag (PPP) [Relative time] 0.99 {INR} Normal [facility] Comment on above: Performed By: #### P TT, PT ####[facility] [address] [address]DrAmarjit Brennan INR GUIDELINES SEE BELOW Normal [facility] Comment on above: Result Comment: HAYDEE RED INR: 2.0 - 3.0 CONDITIONS NOT LISTED BELOW 2.5 - 3.5 FOR PROSTHETIC HEART VALVE REPLACEMENT 2.5 - 3.5 RECURRENT THROMBOSIS Performed By: #### P TT, PT ####[facility] [address] [address]Dr. Kulwant Brennan PT Coag (PPP) [Time] 10.5 s Normal 9.0-11.6 [facility] Comment on above: Performed By: #### P TT, PT ####[facility] [address] [address]Dr. Kulwant Brennan PTTon 06-04-2022 aPTT Coag (Bld) [Time] 30.4 s Normal 22.3-36.2 [facility] Comment on above: Performed By: #### P TT, PT ####[facility] [address] [place], [place] [address]DrAmarjit Brennan TROPONIN, HIGH SENSITIVITYon 06-04-2022 HSTROP 4.5 pg/mL Normal 4.0-76.1 [facility] Comment on above: Result Comment: CUT- OFF POINTS HAVE BEEN ESTABLISHED BASED ON THE FOURTH UNIVERSAL DEFINITIONS OF MYOCARDIAL INFARCTION. THE UPPER REFERENCE LIMIT (URL) OF TROPONIN, DEFINED THE 99TH PERCENTILE OF cTnI DISTRIBUTION IN A REFERENCE POPULATION, HAS BEEN CONFIRMED THE DECISION THRESHOLD FOR [place] DIAGNOSIS. Performed By: #### H STROPN ####[facility] [address] [place], [place] [address]FdAmarjit Brennan HSTROP 4.3 pg/mL Normal 4.0-76.1 [facility] Comment on above: Result Comment: CUT- OFF POINTS HAVE BEEN ESTABLISHED BASED ON THE FOURTH UNIVERSAL DEFINITIONS OF MYOCARDIAL INFARCTION. THE UPPER REFERENCE LIMIT (URL) OF TROPONIN, DEFINED THE 99TH PERCENTILE OF cTnI DISTRIBUTION IN A REFERENCE POPULATION, HAS BEEN CONFIRMED THE DECISION THRESHOLD FOR [place] DIAGNOSIS. Performed By: #### H STROPN #### [facility] [address] [address] [address] Kulwant Brennan TSHon 06-04-2022 TSH 2.572 uIU/mL Normal 0.358-3.74 0 [facility] Comment on above: Performed By: #### L ACT #### [facility] [address] [address] [address] Kulwant Brennan XR CHEST 1 Von 06-04-2022 XR CHEST 1 V EXAM: XR CHEST 1 V 3:44 AM EST [id number] CLINICAL STATEMENT: CHEST PAIN, UNSPECIFIED COMPARISON: 10/03/2021 TECHNIQUE: Single AP radiograph of the chest is submitted. FINDINGS: There is no acute airspace disease. Left basilar atelectasis. Enlarged cardiac silhouette. The costophrenic recesses are sharp. No pneumothorax. The bony elements are unremarkable. IMPRESSION: No acute airspace disease. Left basilar atelectasis. Enlarged cardiac silhouette. FOLLOW-UP: Follow-up as clinically indicated. Electronically authenticated by: FLORENTIN PALMA Date: 2022-06-04 04:40 Normal [facility] XR CHEST 2 Von 06-04-2022 XR CHEST 2 V EXAMINATION: XR CHES T 2 V, , 06/04/2022 3:00 PM EST INDICATION: CHEST PAIN, UNSPECIFIED HISTORY: Ordering Provider Reason for Exam: Technologist Note: Additional: COMPARISON: Chest x-ray dated 06/04/2022 3:26 AM. TECHNIQUE: Chest x-ray: Two views. FINDINGS: No pneumothorax, pleural effusion or focal airspace consolidation. Stable appearing borderline prominent cardiac silhouette is seen. Loop recorder device is seen projecting over the left chest. Bony thorax is unremarkable. IMPRESSION: No acute cardiopulmonary process. Electronically authenticated by: NICOLE CASAREZ Date: 2022-06-04 16:28 Normal [facility] 36on 06-01-[address] Christie had sa id to increase to 360mg. I don't think it comes in a 180mg dose but you can check with the pharmacy. If it doesn't come in 180mg, we can first trying switching to the extended release 120mg BID and if needed we can increase from there. [facility] 36 He said to try the E R BID, but you increased medication to 360 mg is this the right dosage? Please advise then I will send script to derick in [facility] 36 We can see if they c over diltiazem CD as opposed to the cardizem, that's the generic. Or switch him to diltiazem extended release twice daily 120mg. Do not recommend the LA version as it does not provide a stable release of the medication. [facility] CNOVon 05-31-2022 CNOV Office Visit (NHMNS2 ) YOLI ANTUNEZ ([id number]) 1955 M Date Time Provider Department 05/31/22 8:00 AM SARBJIT RICHARDSON [facility] During your visit today, we recorded the following information about you: Sarbjit Richardson APRN.NEETU 05/31/2022 4:52 PM Signed [facility] Follow up visit May 31, 2022 Chief Complaint: Dizziness Impression and Plan last visit: 06/29/2021 with Aydee Pamella DE ANDA Yoli Antunez is a 66 year old year old male, with a history of multiple medical problems including HTN, A-FIB, CAD, CKD, HTN, hypothyroidism, TIAs, GI bleed, AAA, chronic daily headaches with cervicogenic and migraine component, imbalance, and dizziness presenting today with minimal improvement in cervical ROM but new symptoms including left eye drooping with aphasia that started in the last 1 month that can proceed dizziness. I discussed this case with my collaborating physician, Suleman Sommers MD, who agrees patient should be evaluated by epilepsy to rule out seizure as TIA workup recently has been unrevealing and negative. I sent patient a [employer] message with this information and we can try [facility] to see if this is migrainous as recommended by Dr. Sommers. Diagnosis: Tia (transient ischemic attack) (primary encounter diagnosis) Involuntary eye movements Aphasia Peripheral vertigo, unspecified laterality Chronic daily headache Intractable chronic migraine without aura and without status migrainosus Neck pain Imbalance PLAN: Consult to Epilepsy Interval Headache History: 05/23/2022 ED visit TIA: 67 yo man for whom neurology was consulted for aphasia. Patient w/ pmh HTN, A-FIB, CAD, CKD, HTN, hypothyroidism, TIAs, GI bleed, AAA, chronic daily headaches with cervicogenic and migraine component, imbalance, and dizziness. He was getting tilt-table test today, and 3 minutes into testing developed brief chest pain and aphasia. reports he has been getting episodes of aphasia (30 min-6 hrs) w/ headaches every few weeks, for past several years. She reports he has had multiple stroke work-ups, last 2020. Patient endorses current headache, denies anxiety, denies any other neurological sx other than aphasia. He was seen at [facility] for this previously (2020 note, migraine), and follows w/ Neurologist Dr. Wolff in [place]. His exam is entirely benign except he wasn't speaking (though able to say numbers). NIHSS1. No drift, plantars down going. Labs largely benign. CTH wnl. Impression: Possible complex migraine w/ aphasia. Patient reports this occurs every few weeks w/ headache, and follows w/ Neurologist. He is able to speak for myself (say numbers), no other focal neurological deficits at all, appears to be improving. Plan: -Can continue to monitor. Patient and cautioned on acute stroke sx, and reported to call EMS/present if any other new acute neurological sx or if his aphasia does not resolve (he is able to speak currently) -Continue to follow w/ outpatient Neurologist -No further reccs from acute neurological stand point, Neurology will sign-off. Please page w/ additional questions or concerns. . Dizziness: - A fib under control after 3rd ablation and has a Watchman filter - occurs with migraine - Triggers: exertion on workload, possibly head turns (working with PT and has had significant improvement but still having dizziness) - daily (3 times per day depending on activity) - alleviated by sitting down - if he catches it will last about 30 minutes, if he does not catch it fast enough took about 3 hours to resolve He reports getting worse and worse with dizziness, headaches and aphasia. Headache precedes the aphasia - different type of headache - pain is different at the vertex- pressure- not associated with migrainous features except dizziness. He has had 2 in the last 3 weeks. Prior to this they were once a year. Migraines- vertex wider spread- stabbing - migraine everyday Chest tightness and typical migrainous features Migraine today 09/29 and feels it escalating Headache 1 Onset: - Migraine headache s Location: frontal (occipital vertex) Associated Symptoms: Photophobia: yes - only with severe headaches (does not kick in often) Phonophobia: no Nausea: no Vomiting: no Other symptoms: neck pain, dizziness and relieved in supine position Worse with activity: yes Number of migraine headache days/month: 30 Migraine Severity: range from 3- 8/10. Number of NON-migraine headache days/month: 30 Non-migraine Severity: 2-5/10. Number of headache free days/month: -30 Duration of headaches with treatment: Duration of attacks with treatment: lasts for several hours - then recur later. Current preventive treatment: none Current abortive treatment: lays down if he can Triggers: fasting/hunger (ex (more content not included)... Normal [facility] Telephoneon 05-31-2022 Telephone [id number] Fr freda Antunez 1955 M Date Provider Department [place] 05/31/2022 JAZZY DHILLON Family History Problem Relation Age of Onset Hypertension Mother Hypertension Father Aortic aneurysm Father Aortic aneurysm Paternal Grandfather Family Status - Relation Status Age at Mother Father Paternal Grandfather Normal [facility] BASIC METABOLIC PANELon Anion gap [Moles/Vol] 7 mmol/L Normal 7-20 [facility] Comment on above: Performed By: #### L [id number] #### [facility] ([facility]) [address] [place] [address] Calcium [Mass/Vol] 8.4 mg/dL Low 8.6-10.3 [facility] Comment on above: Performed By: #### L [id number] #### [facility] ([facility]) [address] [place] [address] Chloride [Moles/Vol] 107 mmol/L Normal 98-107 [facility] Comment on above: Performed By: #### L [id number] #### [facility] ([facility]) [address] [place] [address] CO2 [Moles/Vol] 24 mmol/L Normal 21-31 [facility] Comment on above: Performed By: #### L [id number] #### [facility] ([facility]) [address] [place] [address] Creatinine [Mass/Vol] 1.32 mg/dL High 0.70-1.30 [facility] Comment on above: Performed By: #### L [id number] #### [facility] ([facility]) [address] [place] [address] GLOMERULAR FILTRATION RATE ML/MIN/1.73 SQ M.PREDICTED 54.7 mL/min/1.73m*2 Low >60.0 [facility] Comment on above: Result Comment: The [facility]???s estimated glomerular filtration rate (eGFR) will no longer include consideration of race in its calculation. The National Kidney Foundation???s eGFR Task Force developed new recommendations for the estimation of the glomerular filtration rate in the [place] They recommend immediate implementation of the new equation refit without the race variable in all laboratories because the calculation does not include race. In addition to not including race in the calculation and reporting, it included diversity in its development, and has acceptable performance characteristics and potential consequences that do not disproportionately affect any one group of individuals. Performed By: #### L [id number] #### [facility] ([facility]) [address] [place] [address] Glucose [Mass/Vol] 89 mg/dL Normal 70-100 [facility] Comment on above: Performed By: #### L [id number] #### [facility] ([facility]) [address] [place] [address] Potassium [Moles/Vol] 4.3 mmol/L Normal 3.5-5.1 [facility] Comment on above: Performed By: #### L [id number] #### [facility] ([facility]) [address] [place] [address] Sodium [Moles/Vol] 138 mmol/L Normal 136-145 [facility] Comment on above: Performed By: #### L [id number] #### [facility] ([facility]) [address] [place] [address] Urea nitrogen [Mass/Vol] 25 mg/dL Normal 7-25 [facility] Comment on above: Performed By: #### L [id number] #### [facility] ([facility]) [address] [place] [address] UREA NITROGEN/CREATININE (MASS RATIO) IN SER/PLAS 18.[address] [facility] Comment on above: Performed By: #### L [id number] #### [facility] ([facility]) [address] [place] [address] CBC WITH AUTO DIFFERENTIALon 05-23-2022 Basophils (Bld) [#/Vol] 0.03 10*3/uL Normal 0.00-0.20 [facility] Comment on above: Performed By: #### L [id number] #### [facility] ([facility]) [address] [place] [address] Basophils/100 WBC (Bld) 0.5 % Normal 0.0-1.0 [facility] Comment on above: Performed By: #### L [id number] #### [facility] ([facility]) [address] [place] [address] Eosinophils (Bld) [#/Vol] 0.17 10*3/uL Normal 0.00-0.50 [facility] Comment on above: Performed By: #### L [id number] #### [facility] ([facility]) [address] [place] [address] Eosinophils/100 WBC (Bld) 2.6 % Normal 0.0-6.0 [facility] Comment on above: Performed By: #### L [id number] #### [facility] ([facility]) [address] [place] [address] Erythrocyte distribution width (RBC) [Ratio] 14.8 % Normal 11.5-15.0 [facility] Comment on above: Performed By: #### L [id number] #### [facility] ([facility]) [address] [place] [address] ERYTHROCYTE MEAN CORPUSCULAR HEMOGLOBIN CONCENTRATION (G/DL) BY AUTOMATED 33.4 g/dL Normal 32.0-35.0 [facility] Comment on above: Performed By: #### L [id number] #### [facility] ([facility]) [address] [place] [address] Hematocrit (Bld) [Volume fraction] 38.6 % Low 39.0-55.0 [facility] Comment on above: Performed By: #### L [id number] #### [facility] ([facility]) [address] [place] [address] Hemoglobin (Bld) [Mass/Vol] 12.9 g/dL Low 13.0-17.0 [facility] Comment on above: Performed By: #### L [id number] #### [facility] ([facility]) [address] [place] [address] Immature granulocytes (Bld) [#/Vol] 0.04 10*3/uL Normal 0.00-0.20 [facility] Comment on above: Performed By: #### L [id number] #### [facility] ([facility]) [address] [place] [address] Immature granulocytes/100 WBC (Bld) 0.6 % Normal 0.0-1.0 [facility] Comment on above: Performed By: #### L [id number] #### [facility] [address] [place] [address] Lymphocytes (Bld) [#/Vol] 1.47 10*3/uL Normal 1.20-4.00 [facility] Comment on above: Performed By: #### L [id number] #### [facility] ([facility]) [address] [place] [address] Lymphocytes/100 WBC (Bld) 22.4 % Normal 20.0-45.0 [facility] Comment on above: Performed By: #### L [id number] #### [facility] ([facility]) [address] [place] [address] MCH (RBC) [Entitic mass] 27.3 pg Normal 27.0-33.0 [facility] Comment on above: Performed By: #### L [id number] #### [facility] ([facility]) [address] [place] [address] MCV (RBC) [Entitic vol] 81.6 fL Low 82.0-98.0 [facility] Comment on above: Performed By: #### L [id number] #### [facility] ([facility]) [address] [place] [address] Monocytes (Bld) [#/Vol] 0.64 10*3/uL Normal 0.10-1.00 [facility] Comment on above: Performed By: #### L [id number] #### [facility] ([facility]) [address] [place] [address] Monocytes/100 WBC (Bld) 9.8 % Normal 5.0-12.0 [facility] Comment on above: Performed By: #### L [id number] #### [facility] ([facility]) [address] [place] [address] Neutrophils (Bld) [#/Vol] 4.21 10*3/uL Normal 1.60-7.60 [facility] Comment on above: Performed By: #### L [id number] #### [facility] ([facility]) [address] [place] [address] Neutrophils/100 WBC (Bld) 64.1 % Normal 40.0-72.0 [facility] Comment on above: Performed By: #### L [id number] #### [facility] ([facility]) [address] [place] [address] NRBC (PER 100 WBCS) BY AUTOMATED COUNT 0.0 % Normal 0.0-0.0 [facility] Comment on above: Performed By: #### L [id number] #### [facility] ([facility]) [address] [place] [address] PLATELETS (10*3/UL) IN BLOOD AUTOMATED COUNT 201 10*3/uL Normal 150-400 [facility] Comment on above: Performed By: #### L [id number] #### [facility] ([facility]) [address] [place] [address] RBC (Bld) [#/Vol] 4.73 10*6/uL Normal 4.20-5.70 [facility] Comment on above: Performed By: #### L [id number] #### [facility] ([facility]) [address] [place] [address] WBC (Bld) [#/Vol] 6.56 10*3/uL Normal 4.00-10.60 [facility] Comment on above: Performed By: #### L [id number] #### [facility] ([facility]) [address] [place] [address] CT HEAD WO IV CONTRASTon CT HEAD WO IV CONTRAST History: Transient ischemic attack a aphasia. Comparison: None EXAM & TECHNIQUE: Multi detector CT axial slices the brain were obtained without IV contrast. Multiplanar reformats were performed and viewed on a separate workstation and reviewed to further define anatomy and possible pathology. Appropriate CT dose lowering techniques were utilized. FINDINGS: No intracranial blood products, mass or midline shift. Cerebral volume is age compatible. The ventricular and cisternal configuration is symmetric. No indication of hydrocephalus. Lind-white matter differentiation is preserved. No large regions of low-attenuation or sulcal effacement. Paranasal sinuses, mastoids and middle ear structures appear normally aerated. IMPRESSION: *Negative noncontrast CT of the brain. All CT scans at this institution used dose modulation, iterative reconstruction and/or weight based dose modulation when appropriate to reduce radiation dose to as low as reasonably achievable. Electronically signed: Sergio Tamez. [facility] EDPROVon 05-23-2022 EDPROV HPI Chief Complaint Patient presents with Unable to speak Chest Pain Expressive aphasia, chronic intermittent, has been extensively worked up by neurology, no other symptoms, this happen when they put pt on tilt table test. He denies cp, sob, or neurologic deficits Ranulfo Coma Scale Score: 11 Patient History Past Medical History: Diagnosis Date Atrial fibrillation (CMS/HCC) Chronic kidney disease stage 3 b Coronary artery disease Hypertension Pancreatitis, gallstone TIA (transient ischemic attack) Past Surgical History: Procedure Laterality Date APPENDECTOMY ATRIAL ABLATION SURGERY flutter and fib ablation BACK SURGERY CARDIAC CATHETERIZATION CHOLECYSTECTOMY CT CHEST ANGIOGRAM W AND/OR WO IV CONTRAST 07/22/2020 CT CHEST ANGIOGRAM W AND/OR WO IV CONTRAST [place] CONVERSION CT CHEST ANGIOGRAM W AND/OR WO IV CONTRAST 08/30/2020 CT CHEST ANGIOGRAM W AND/OR WO IV CONTRAST [place] CONVERSION CT CHEST ANGIOGRAM W AND/OR WO IV CONTRAST 09/16/2021 CT CHEST ANGIOGRAM W AND/OR WO IV CONTRAST 09/16/2021 CT CHEST ANGIOGRAM W AND/OR WO IV CONTRAST 08/24/2021 CT CHEST ANGIOGRAM W AND/OR WO IV CONTRAST 08/24/2021 CT CHEST ANGIOGRAM W AND/OR WO IV CONTRAST 07/06/2021 CT CHEST ANGIOGRAM W AND/OR WO IV CONTRAST 07/06/2021 CT CHEST ANGIOGRAM W AND/OR WO IV CONTRAST 06/20/2017 CT CHEST ANGIOGRAM W AND/OR WO IV CONTRAST 06/20/2017 NECK SURGERY THYROIDECTOMY Family History Problem Relation Name Age of Onset Hypertension Mother Hypertension Father Aortic aneurysm Father Aortic aneurysm Paternal Grandfather Social History Tobacco Use Smoking status: Former Types: Cigarettes Quit date: 1983 Years since quittin.1 Smokeless tobacco: Never Vaping Use Vaping Use: Never used Substance Use Topics Alcohol use: Yes Comment: occasional Drug use: Not Currently Review of Systems Review of Systems Constitutional: Negative. HENT: Negative. Eyes: Negative. Respiratory: Negative. Cardiovascular: Negative. Gastrointestinal: Negative. Endocrine: Negative. Genitourinary: Negative. Musculoskeletal: Negative. Skin: Negative. Allergic/Immunologic: Negative. Neurological: Positive for speech difficulty. Negative for dizziness, tremors, seizures, syncope, facial asymmetry, weakness, light-headedness, numbness and headaches. Hematological: Negative. Psychiatric/Behavioral: Negative. Physical Exam ED Triage Vitals [05/23/22 1014] Temp Heart Rate Resp BP 37.1 ???C (98.8 ???F) 69 17 124/74 SpO2 Temp src Heart Rate Source Patient Position 98 % -- Monitor -- BP Location FiO2 (%) Left arm -- Physical Exam Constitutional: Appearance: He is well-developed. HENT: Head: Normocephalic. Eyes: Pupils: Pupils are equal, round, and reactive to light. Cardiovascular: Rate and Rhythm: Normal rate. Heart sounds: Normal heart sounds. Pulmonary: Effort: Pulmonary effort is normal. Abdominal: Palpations: Abdomen is soft. Musculoskeletal: General: Normal range of motion. Skin: General: Skin is warm. Neurological: Mental Status: He is alert and oriented to person, place, and time. Motor: No weakness. Psychiatric: Mood and Affect: Mood normal. Behavior: Behavior normal. Procedures ED Course & MDM Diagnoses as of 06/25/22 1045 TIA (transient ischemic attack) Medical Decision Making Attestion Muna Dickerson MD 06/25/22 1045 Muna Dickerson MD 06/25/[address] [facility] POCT GLUCOSE METER UNSOLICIT ED RESULTSon 05-23-2022 Glucose [Mass/Vol] 95 mg/dL Normal 70-105 Kiera rodrigues [facility] Comment on above: Result Comment: mercedes [email or web address] Performed By: #### L [id number] #### [facility] ([facility]) [address] [place] [address] TROPONIN Ion 05-23-2022 Troponin I.cardiac [Mass/Vol] 0.01 ng/mL Normal 0.00-0.04 [facility] Comment on above: Performed By: #### L [id number] ####[facility] ([facility]AKER)[address] [place] [address] Office Visiton 05-01-2022 Follow-up visit [id number] Fr freda Antunez Jr. 1955 M Date Provider Department Center 05/01/2022 [facility] Family History Problem Relation Age of Onset Hypertension Mother Hypertension Father Aortic aneurysm Father Aortic aneurysm Paternal Grandfather Family Status - Relation Status Age at Mother Father Paternal Grandfather Level of Service:45558 [place] OFFICE/OUTPATIENT ESTABLISHED MOD MDM 30-39 MIN Reason for Visit and Comments: Atrial Fibrillation [80] Coronary Artery Disease [187] Chest Pain [001613] Shortness of Breath [106907] Normal [facility] XR Hand Complete Left*on XR Hand Complete Left* FINDINGS: Moderate to severe 1st carpal metacarpal, mild to moderate 1st, 2nd, and 3rd MCP and IP joint arthritic changes. No evidence of cortical or stress fracture is seen. No focal soft tissue swelling is seen. No foreign body is visualized. IMPRESSION: Moderate to severe osteoarthritis, greatest involvement 1st carpal metacarpal joint Report reported and signed by Chaz Moreau on 04/17/2022 1415 Normal [facility] Engraver Letter ECHO LIMITED STUDYon 022 ECHO LIMITED STUDY Patient: Sophia ANTUNEZ Exam Date: 03/22/2022 : 1955 Gender:M Ordering : [facility] Admission #: [id number] Family : Order #: [id number] CLICK HERE TO VIEW EXAM ECHOCARDIOGRAM REPORT PROCEDURE: CARDIO PULMONARY ECHO LIMITED STUDY INDICATIONS: Evaluate for pericardial effusion COMPARISON: None. DESCRIPTION: Limited ECHOCARDIOGRAM Real-time transthoracic echocardiography with 2D and M-mode performed. QUALITY: Technical quality was good. LEFT VENTRICLE: Normal chamber size. Mild concentric left ventricular hypertrophy. Global left ventricular systolic function is normal. LV EF: Visual estimation of left ventricular ejection fraction is 60% DIASTOLIC: ATRIAL SEPTUM: LEFT ATRIUM: Mild dilatation. RIGHT ATRIUM: Mild dilatation. RIGHT VENTRICLE: Normal chamber size. Normal right ventricular systolic function. TRICUSPID VALVE: Normal mobility and thickness. MITRAL VALVE: Normal mobility and thickness. No mitral valve prolapse. There is no mitral annular calcification. AORTIC VALVE: Normal trileaflet appearance. Thickened aortic valve. Normal leaflet mobility. AORTIC ROOT: Mildly dilated. PULMONIC VALVE: Normal thickness and mobility. PERICARDIUM: No evidence of pericardial effusion. IVC: Collapses with inspirations. Normal size PLEURA: CONCLUSION: 1. Normal ventricular systolic function. LVEF is 60%. 2. No pericardial effusion. 3. The patient appears to be in sinus rhythm. Adult Echocardiography Procedure Report Left Ventricle LVEDD (3.7 - 5.6 cm): 5.03 cm LVESD (2.2 - 4.0 cm): 3.38 cm LVIVS thickness (0.6 - 1.2 cm): 1.26 cm LVPW thickness (0.5 - 1.0 cm): 1.20 cm LVOT Diameter 2.37 cm Left Ventricular Ejection Fraction: 60% Left Atrium LA Volume Index (2D A2C): 91.55 ml, 91.55 ml Left Atrium Systolic Dimension: 3.93 cm Mitral Valve Right Ventricle RV Internal Diastolic Dimension: 3.69 cm Aorta AO Root Diam: 3.95 cm Aortic Valve Tricuspid Valve Pulmonic Valve Right Atrium Right Atrium Systolic Pressure: 59.70 ml, 59.70 ml Dictated by: Mono Christie M.D. on 03/22/2022 at 20:28 Approved by: Mono Christie M.D. on 03/22/2022 at 20:31 Normal [facility] XR Abdomen Single View (KUB) *on 03-21-2022 XR Abdomen Single View (KUB)* FINDINGS: Moderate volume of hepatic flexure through transverse/descending regions colon stool. No mass effect or free air. Air-filled, non-distended small and large bowel normally distributed throughout the abdomen and pelvis. Indeterminate 2 mm left paravertebral (L2-3/L3-4 level) and pelvic calcifications, conceivably ureteral stones. IMPRESSION: Moderate volume stool hepatic flexure through transverse/descending regions, no obstruction or mass effect. If symptoms persist following appropriate medical management, CT imaging would be of assistance. Report reported and signed by Chaz Moreau on 03/21/2022 0944 Normal [facility] Engraver Letter AMYLASEon 02-05-2022 Amylase [Catalytic activity/Vol] 58 U/L Normal 25-115 [facility] Comment on above: Performed By: #### L IPA, YAHIR, CMP #### [facility] [address] [address] [address] Kulwant Brennan CBC AUTO DIFFon 02-05-2022 BASO # 0.1 103/ul Normal 0.0-0.1 [facility] Comment on above: Performed By: #### L ACT #### [facility] [address] [address] [address] Kulwant Brennan Basophils/100 WBC (Bld) 0.8 % Normal 0.2-2.0 [facility] Comment on above: Performed By: #### L ACT #### [facility] [address] [address] [address] Kulwant Brennan EO # 0.2 103/ul Normal 0.0-0.7 [facility] Comment on above: Performed By: #### L ACT #### [facility] [address] [address] [address] Kulwant Brennan Eosinophils/100 WBC (Bld) 2.3 % Normal 0.9-7.0 [facility] Comment on above: Performed By: #### L ACT #### [facility] [address] [address] [address] Kulwant Brennan Erythrocyte distribution width (RBC) [Ratio] 14.6 % Normal 11.0-15.0 [facility] Comment on above: Performed By: #### L ACT #### [facility] [address] [place] [address] Dr. Kulwant Brennan Hematocrit (Bld) [Volume fraction] 39.9 % Critically low 42.0-54.0 [facility] Comment on above: Performed By: #### L ACT #### [facility] [address] [address] [address] Kulwant Brennan Hemoglobin (Bld) [Mass/Vol] 12.7 g/dL Critically low 14.0-18.0 [facility] Comment on above: Performed By: #### L ACT #### [facility] [address] [address] [address] Kulwant Brennan IG # 0.03 10e3/ul Normal 0.00-0.03 [facility] Comment on above: Performed By: #### L ACT #### [facility] [address] [place] [address] Dr. Kulwant Brennan IG % 0.5 % Normal 0.0-0.5 [facility] Comment on above: Performed By: #### L ACT #### [facility] [address] [place] [address] Dr. Kulwant Brennan LYMPH # 1.9 103/ul Normal 1.2-3.8 [facility] Comment on above: Performed By: #### L ACT #### [facility] [address] [place] [address] Dr. Kulwant Brennan Lymphocytes/100 WBC (Bld) 28.3 % Normal 20.5-60.0 [facility] Comment on above: Performed By: #### L ACT #### [facility] [address] [place] [address] Dr. Kulwant Brennan MANUAL DIFF REQ NO Normal [facility] Comment on above: Performed By: #### L ACT #### [facility] [address] [place] [address] Dr. Kulwant Brennan MCH (RBC) [Entitic mass] 27.4 pg Normal 25.9-34.0 [facility] Comment on above: Performed By: #### L ACT #### [facility] [address] [place] [address] Dr. Kulwant Brennan MCHC (RBC) [Mass/Vol] 31.8 g/dL Normal 29.9-35.2 [facility] Comment on above: Performed By: #### L ACT #### [facility] [address] [address] [address] Kulwant Brennan MCV (RBC) [Entitic vol] 86.0 fL Normal 80.0-94.0 [facility] Comment on above: Performed By: #### L ACT #### [facility] [address] [address] [address] Kulwant Brennan MONO # 0.7 103/ul Normal 0.3-0.8 [facility] Comment on above: Performed By: #### L ACT #### [facility] [address] [address] [address] Kulwant Brennan Monocytes/100 WBC (Bld) 10.4 % Normal 1.7-12.0 [facility] Comment on above: Performed By: #### L ACT #### [facility] [address] [address] [address] Kulwant Brennan NEUT # 3.8 103/ul Normal 1.4-6.5 [facility] Comment on above: Performed By: #### L ACT #### [facility] [address] [address] [address] Kulwant Brennan Neutrophils/100 WBC (Bld) 57.7 % Normal 43.0-75.0 [facility] Comment on above: Performed By: #### L ACT #### [facility] [address] [address] [address] Kulwant Brennan Platelet mean volume (Bld) [Entitic vol] 9.9 fL Normal 9.5-13.5 [facility] Comment on above: Performed By: #### L ACT #### [facility] [address] [address] [address] Kulwant Brennan PLT 224 103/ul Normal 150-450 [facility] Comment on above: Performed By: #### L ACT #### [facility] [address] [address] [address] Kulwant Brennan RBC 4.64 106/ul Critically low 4.70-6.10 [facility] Comment on above: Performed By: #### L ACT #### [facility] [address] [address] [address] Kulwant Brennan WBC 6.6 103/ul Normal 4.0-11.0 [facility] Comment on above: Performed By: #### L ACT #### [facility] [address] [place] [address] Dr. Kulwant Brennan LIPASEon 02-05-2022 Lipase [Catalytic activity/Vol] 174.0 U/L Normal 73.0-393.0 [facility] Comment on above: Performed By: #### L IPA, YAHIR, CMP #### [facility] [address] [place] [address] Dr. Kulwant Brennan PROF 14(COMP METB)on Albumin [Mass/Vol] 4.2 g/dL Normal 3.4-5.0 [facility] Comment on above: Performed By: #### L IPA, YAHIR, CMP #### [facility] [address] [place] [address] Dr. Kulwant Brennan Albumin/Globulin [Mass ratio] 1.0 {ratio} Normal [facility] Comment on above: Performed By: #### L IPA, YAHIR, CMP #### [facility] [address] [place] [address] Dr. Kulwant Brennan ALP [Catalytic activity/Vol] 106 U/L Normal 46-116 [facility] Comment on above: Performed By: #### L IPA, YAHIR, CMP #### [facility] [address] [place] [address] Dr. Kulwant Brennan ALT [Catalytic activity/Vol] 91 U/L Critically high 16-63 [facility] Comment on above: Performed By: #### L IPA, YAHIR, CMP #### [facility] [address] [place] [address] Dr. Kulwant Brennan Anion gap [Moles/Vol] 13.8 mmol/L Normal [facility] Comment on above: Performed By: #### L IPA, YAHIR, CMP #### [facility] [address] [place] [address] Dr. Kulwant Brennan AST [Catalytic activity/Vol] 26 U/L Normal 15-37 [facility] Comment on above: Performed By: #### L IPA, YAHIR, CMP #### [facility] [address] [place] [address] Dr. Kulwant Brennan Bilirubin [Mass/Vol] 0.5 mg/dL Normal 0.2-1.0 [facility] Comment on above: Performed By: #### L IPA, YAHIR, CMP #### [facility] [address] [place] [address] Dr. Kulwant Brennan Calcium [Mass/Vol] 8.3 mg/dL Critically low 8.5-10.1 [facility] Comment on above: Performed By: #### L IPA, YAHIR, CMP #### [facility] [address] [place] [address] Dr. Kulwant Brennan Chloride [Moles/Vol] 103 mmol/L Normal 98-107 [facility] Comment on above: Performed By: #### L IPA YAHIR, CMP #### [facility] [address] [place] [address] Dr. Kulwant Brennan CO2 [Moles/Vol] 26.5 mmol/L Normal 21.0-32.0 [facility] Comment on above: Performed By: #### L IPA YAHIR, CMP #### [facility] [address] [place] [address] Dr. Kulwant Brennan Creatinine [Mass/Vol] 1.37 mg/dL Critically high 0.70-1.30 [facility] Comment on above: Performed By: #### L IPA YAHIR, CMP #### [facility] [address] [place] [address] Dr. Kulwant Brennan EGFR-AF EMIRATI >60 Normal >=60 [facility] Comment on above: Performed By: #### L IPA, YAHIR, CMP #### [facility] [address] [place] [address] Dr. Kulwant Brennan EGFR-NON AF EMIRATI 52 mL/min/1.73m2 Critically low >=60 [facility] Comment on above: Performed By: #### L IPA, YAHIR, CMP #### [facility] [address] [place] [address] Dr. Kulwant Brennan Globulin (S) [Mass/Vol] 4.1 g/dL Normal [facility] Comment on above: Performed By: #### L YAHIR NG, CMP #### [facility] [address] [place] [address] Dr. Kulwant Brennan Glucose [Mass/Vol] 96 mg/dL Normal 74-106 [facility] Comment on above: Performed By: #### L YAHIR NG, CMP #### [facility] [address] [place] [address] Dr. Kulwant Brennan Potassium [Moles/Vol] 4.3 mmol/L Normal 3.5-5.1 [facility] Comment on above: Performed By: #### L YAHIR NG, CMP #### [facility] [address] [place] [address] Dr. Kulwant Brennan Protein [Mass/Vol] 8.3 g/dL Critically high 6.4-8.2 [facility] Comment on above: Performed By: #### L YAHIR NG, CMP #### [facility] [address] [place] [address] Dr. Kulwant Brennan Sodium [Moles/Vol] 139 mmol/L Normal 136-145 [facility] Comment on above: Performed By: #### L YAHIR NG, CMP #### [facility] [address] [place] [address] Dr. Kulwant Brennan Urea nitrogen [Mass/Vol] 27.0 mg/dL Critically high 7.0-18.0 [facility] Comment on above: Performed By: #### L YAHIR NG, CMP #### [facility] [address] [place] [address] Dr. Kulwant Brennan Urea nitrogen/Creatinine [Mass ratio] 19.7 mg/mg Normal [facility] Comment on above: Performed By: #### L YAHIR NG, CMP #### [facility] [address] [place] [address] Dr. Kulwant Brennan CBC AUTO DIFFon 01-09-2022 BASO # 0.1 103/ul Normal 0.0-0.1 [facility] Comment on above: Performed By: #### H STROPN #### [facility] [address] [address] [address] Kulwant Brennan Basophils/100 WBC (Bld) 0.5 % Normal 0.2-2.0 [facility] Comment on above: Performed By: #### H STROPN #### [facility] [address] [address] [address] Kulwant Brennan EO # 0.2 103/ul Normal 0.0-0.7 [facility] Comment on above: Performed By: #### H STROPN #### [facility] [address] [address] [address] Kulwant Brennan Eosinophils/100 WBC (Bld) 2.3 % Normal 0.9-7.0 [facility] Comment on above: Performed By: #### H STROPN #### [facility] [address] [place] [address] Dr. Kulwant Brennan Erythrocyte distribution width (RBC) [Ratio] 14.6 % Normal 11.0-15.0 [facility] Comment on above: Performed By: #### H STROPN #### [facility] [address] [place] [address] Dr. Kulwant Brennan Hematocrit (Bld) [Volume fraction] 35.8 % Critically low 42.0-54.0 [facility] Comment on above: Performed By: #### H STROPN #### [facility] [address] [place] [address] Dr. Kulwant Brennan Hemoglobin (Bld) [Mass/Vol] 11.4 g/dL Critically low 14.0-18.0 [facility] Comment on above: Performed By: #### H STROPN #### [facility] [address] [address] [address] Kulwant Brennan IG # 0.33 10e3/ul Critically high 0.00-0.03 [facility] Comment on above: Performed By: #### H STROPN #### [facility] [address] [address] [address] Kulwant Brennan IG % 3.2 % Critically high 0.0-0.5 [facility] Comment on above: Performed By: #### H STROPN #### [facility] [address] [address] [address] Kulwant Brennan LYMPH # 1.9 103/ul Normal 1.2-3.8 [facility] Comment on above: Performed By: #### H STROPN #### [facility] [address] [address] [address] Kulwant Brennan Lymphocytes/100 WBC (Bld) 18.3 % Critically low 20.5-60.0 [facility] Comment on above: Performed By: #### H STROPN #### [facility] [address] [address] [address] Kulwant Brennan MANUAL DIFF REQ NO Normal [facility] Comment on above: Performed By: #### H STROPN #### [facility] [address] [place] [address] Dr. Kulwant Brennan MCH (RBC) [Entitic mass] 26.8 pg Normal 25.9-34.0 [facility] Comment on above: Performed By: #### H STROPN #### [facility] [address] [address] [address] Kulwant Brennan MCHC (RBC) [Mass/Vol] 31.8 g/dL Normal 29.9-35.2 [facility] Comment on above: Performed By: #### H STROPN #### [facility] [address] [place] [address] Dr. Kulwant Brennan MCV (RBC) [Entitic vol] 84.0 fL Normal 80.0-94.0 [facility] Comment on above: Performed By: #### H STROPN #### [facility] [address] [place] [address] Dr. Kulwant Brennan MONO # 0.9 103/ul Critically high 0.3-0.8 [facility] Comment on above: Performed By: #### H STROPN #### [facility] [address] [address] [address] Kulwant Brennan Monocytes/100 WBC (Bld) 9.2 % Normal 1.7-12.0 [facility] Comment on above: Performed By: #### H STROPN #### [facility] [address] [address] [address] Kulwant Brennan NEUT # 6.8 103/ul Critically high 1.4-6.5 [facility] Comment on above: Performed By: #### H STROPN #### [facility] [address] [address] [address] Kulwant Brennan Neutrophils/100 WBC (Bld) 66.5 % Normal 43.0-75.0 [facility] Comment on above: Performed By: #### H STROPN #### [facility] [address] [address] [address] Kulwant Brennan Platelet mean volume (Bld) [Entitic vol] 10.5 fL Normal 9.5-13.5 [facility] Comment on above: Performed By: #### H STROPN #### [facility] [address] [address] [address] Kulwant Brennan PLT 357 103/ul Normal 150-450 [facility] Comment on above: Performed By: #### H STROPN #### [facility] [address] [address] [address] Kulwant Brennan RBC 4.26 106/ul Critically low 4.70-6.10 [facility] Comment on above: Performed By: #### H STROPN #### [facility] [address] [address] [address] Kulwant Brennan WBC 10.2 103/ul Normal 4.0-11.0 [facility] Comment on above: Performed By: #### H STROPN #### [facility] [address] [address] [address] Kulwant Brennan PROF 14(COMP METB)on 022 Albumin [Mass/Vol] 3.3 g/dL Critically low 3.4-5.0 [facility] Comment on above: Performed By: #### T SH, CMP ####[facility] [address] [address]Dr. Kulwant Brenann Albumin/Globulin [Mass ratio] 0.8 {ratio} Normal [facility] Comment on above: Performed By: #### T RAJEEV, CMP ####[facility] [address] [address]Dr. Kulwant Brennan ALP [Catalytic activity/Vol] 151 U/L Critically high 46-116 [facility] Comment on above: Performed By: #### T RAJEEV, CMP ####[facility] [address] [address]Dr. Kulwant Brnenan ALT [Catalytic activity/Vol] 118 U/L Critically high 16-63 [facility] Comment on above: Performed By: #### T RAJEEV, CMP ####[facility] [address] [address]Dr. Kulwant Brennan Anion gap [Moles/Vol] 12.3 mmol/L Normal [facility] Comment on above: Performed By: #### T RAJEEV, CMP ####[facility] [address] [place], [place] [address]Dr. Kulwant Brennan AST [Catalytic activity/Vol] 65 U/L Critically high 15-37 [facility] Comment on above: Performed By: #### T RAJEEV, CMP ####[facility] [address] [place], [place] [address]Dr. Kulwant Brennan Bilirubin [Mass/Vol] 0.5 mg/dL Normal 0.2-1.0 [facility] Comment on above: Performed By: #### T RAJEEV, CMP ####[facility] [address] [place], [place] [address]Dr. Kulwant Brennan Calcium [Mass/Vol] 5.3 mg/dL Critically low 8.5-10.1 [facility] Comment on above: Performed By: #### T RAJEEV, CMP ####[facility] [address] [address]Dr. Kulwant Brennan Chloride [Moles/Vol] 104 mmol/L Normal 98-107 [facility] Comment on above: Performed By: #### T RAJEEV, CMP ####[facility] [address] [address]Dr. Alanaselvin Brennan CO2 [Moles/Vol] 26.7 mmol/L Normal 21.0-32.0 [facility] Comment on above: Performed By: #### T SH, CMP ####[facility] [address] [address]Dr. Kulwant Brennan Creatinine [Mass/Vol] 2.08 mg/dL Critically high 0.70-1.30 [facility] Comment on above: Performed By: #### T SH, CMP ####[facility] [address] [address]Dr. Kulwant Brennan EGFR-AF EMIRATI 39 mL/min/1.73m2 Critically low >=60 [facility] Comment on above: Performed By: #### T SH, CMP ####[facility] [address] [place], [place] [address]Dr. Kulwant Brennan EGFR-NON AF EMIRATI 32 mL/min/1.73m2 Critically low >=60 [facility] Comment on above: Performed By: #### T SH, CMP ####[facility] [address] [place], [place] [address]Dr. Kulwant Brennan Globulin (S) [Mass/Vol] 4.1 g/dL Normal [facility] Comment on above: Performed By: #### T SH, CMP ####[facility] [address] [place], [place] [address]Dr. Kulwant Brennan Glucose [Mass/Vol] 89 mg/dL Normal 74-106 [facility] Comment on above: Performed By: #### T SH, CMP ####[facility] [address] [place], [place] [address]Dr. Kulwant Brennan Potassium [Moles/Vol] 4.0 mmol/L Normal 3.5-5.1 [facility] Comment on above: Performed By: #### T SH, CMP ####[facility] [address] [place], [place] [address]Dr. Kulwant Brennan Protein [Mass/Vol] 7.4 g/dL Normal 6.4-8.2 [facility] Comment on above: Performed By: #### T SH, CMP ####[facility] [address] [place], [place] [address]Dr. Kulwant Brennan Sodium [Moles/Vol] 139 mmol/L Normal 136-145 [facility] Comment on above: Performed By: #### T RAJEEV, CMP ####[facility] [address] [address]Dr. Kulwant Brennan Urea nitrogen [Mass/Vol] 28.0 mg/dL Critically high 7.0-18.0 [facility] Comment on above: Performed By: #### T RAJEEV, CMP ####[facility] [address] [address]Dr. Kulwant Brennan Urea nitrogen/Creatinine [Mass ratio] 13.5 mg/mg Normal [facility] Comment on above: Performed By: #### T RAJEEV, CMP ####[facility] [address] [address]Dr. Kulwant Brennan TSHon 01-09-2022 TSH 20.234 uIU/mL Critically high 0.358-3.74 0 [facility] Comment on above: Performed By: #### T RAJEEV, CMP ####[facility] [address] [address]Dr. Kulwant Brennan Cult, Bloodon 01-06-2022 Cult, Blood Specimen Description .BLOOD Special Requests RT AC 6ML Culture NO GROWTH 5 DAYS Report Status FINAL 01/06/2022 [facility] Comment on above: Performed By: #### U RNA, URTPRT, UMICAO, UEOS, UA #### [address] [facility] [place] [address] Stamp Classifier: Ronn Arias MD Cult,Bloodon 01-06-2022 Cult,Blood Specimen Description .BLOOD Special Requests LT HAND 6ML Culture NO GROWTH 5 DAYS Report Status FINAL 01/06/2022 [facility] Comment on above: Performed By: #### U RNA, URTPRT, UMICAO, UEOS, UA #### [address] [place] [address] Stamp Classifier: Ronn Arias MD KYLE SCREEN WITH REFLEXon 09- 16-2022 Anti ds DNA 5.8 NINF [facility] Comment on above: Reference Range: <10.0 Negative 10.0-15.0 Equivocal >15.0 Positive ARJUN Antibodies Screen 0.3 U/mL [facility] - 0.7 U/mL [facility] Comment on above: Reference Range: <0.7 Negative 0.7-1.0 Equivocal >1.0 Positive ARJUN Screen includes U1RNP,RNP70,Sm,Ro(SS-A),La(SS-B),CENP,Scl-70,Pippa-1 Nuclear Ab IF (S) [Titer] Negative NEGATIVE [facility] KYLE Screen w/reflexon 2021 KYLE Screen Negative Normal NEG [facility] Comment on above: Performed By: #### U RNA, URTPRT, UMICAO, UEOS, UA #### [address] [address] Stamp Classifier: Ronn Arias MD Anti-dsDNA 5.8 IU/mL Normal <10.0 [facility] Comment on above: Result Comment: Reference Range: <10.0 Negative 10.0-15.0 Equivocal >15.0 Positive Performed By: #### U RNA, URTPRT, UMICAO, UEOS, UA #### [address] [place], [place] [id number] Stamp Classifier: Ronn Arias MD ARJUN Screen 0.3 U/mL Normal <0.7 [facility] Comment on above: Result Comment: Reference Range: <0.7 Negative 0.7-1.0 Equivocal >1.0 Positive ARJUN Screen includes U1RNP,RNP70,Sm,Ro(SS-A),La(SS-B),CENP,Scl-70,Pippa-1 Performed By: #### U RNA, URTPRT, UMICAO, UEOS, UA #### [employer] [address] [place], [place] [id number] Stamp Classifier: Ronn Arias MD Basic Metabolic Panelon 12-21 Anion gap [Moles/Vol] 14 mmol/L 9 - 17 mmol/L [facility] Calcium [Mass/Vol] 6.4 mg/dL Low 8.6 - 10. 4 mg/dL [facility] Chloride [Moles/Vol] 108 mmol/L High 98 - 107 mmol/L [facility] CO2 [Moles/Vol] 25 mmol/L 20 - 31 mmol/L [facility] Creatinine [Mass/Vol] 2.5 mg/dL High 0.7 - 1.2 mg/dL [facility] GFR 31 mL/min Low 60 - PINF mL/min [facility] GFR Non- 26 mL/min Low 60 - PINF mL/min [facility] GFR/1.73 sq M.predicted MDRD (S/P/Bld) [Vol rate/Area] [facility] Comment on above: Average GFR for 60-6 9 years old: 85 mL/min/1.73sq m Chronic Kidney Disease: <60 mL/min/1.73sq m Kidney failure: <15 mL/min/1.73sq m eGFR calculated using average adult body mass. Additional eGFR calculator available at: http://www.[employer]/multiple_crcl_2011.htm Glucose [Mass/Vol] 99 mg/dL 70 - 99 mg/dL [facility] Interpretation and review of laboratory results Abnormal [facility] Potassium [Moles/Vol] 4.6 mmol/L 3.7 - 5.3 mmol/L [facility] Sodium [Moles/Vol] 147 mmol/L High 135 - 144 mmol/L [facility] Urea nitrogen (BldV) [Mass/Vol] 40 mg/dL High 8 - 23 mg/dL [facility] Basic Metabolic Profon 01-05 (cont.) Normal [facility] Comment on above: Result Comment: Aver age GFR for 60-69 years old: 85 mL/min/1.73sq m Chronic Kidney Disease: <60 mL/min/1.73sq m Kidney failure: <15 mL/min/1.73sq m eGFR calculated using average adult body mass. Additional eGFR calculator available at: http://www.[employer].com/multiple_crcl_2012.htm Performed By: #### U RNA, URTPRT, UMICAO, UEOS, UA #### [facility] [place] [address] Stamp Classifier: Ronn Arias MD Anion gap [Moles/Vol] 14 mmol/L Normal 9-17 [facility] Comment on above: Performed By: #### U RNA, URTPRT, UMICAO, UEOS, UA #### [facility] [address] [place] [address] Stamp Classifier: Ronn Arias MD Calcium [Mass/Vol] 6.4 mg/dL Low 8.6-10.4 [facility] Comment on above: Performed By: #### U RNA, URTPRT, UMICAO, UEOS, UA #### [facility] [address] [place] [address] Stamp Classifier: Ronn Arias MD Chloride [Moles/Vol] 108 mmol/L High 98-107 [facility] Comment on above: Performed By: #### U RNA, URTPRT, UMICAO, UEOS, UA #### [facility] [address] [place] [address] Stamp Classifier: Ronn Arias MD CO2 [Moles/Vol] 25 mmol/L Normal 20-31 [facility] Comment on above: Performed By: #### U RNA, URTPRT, UMICAO, UEOS, UA #### [facility] [address] [place] [address] Stamp Classifier: Ronn Arias MD Creatinine [Mass/Vol] 2.50 mg/dL High 0.70-1.20 [facility] Comment on above: Performed By: #### U RNA, URTPRT, UMICAO, UEOS, UA #### [facility] [address] [place], [place] [address] [place] [address] Stamp Classifier: Ronn Arias MD GFR, Amer 31 mL/min Low >60 [facility] Comment on above: Performed By: #### U RNA, URTPRT, UMICAO, UEOS, UA #### [address] [address] Stamp Classifier: Ronn Arias MD GFR,non Amer 26 mL/min Low >60 [facility] Comment on above: Performed By: #### U RNA, URTPRT, UMICAO, UEOS, UA #### [address] [address] Stamp Classifier: Ronn Arias MD Glucose [Mass/Vol] 99 mg/dL Normal 70-99 [facility] Comment on above: Performed By: #### U RNA, URTPRT, UMICAO, UEOS, UA #### [address] [address] Stamp Classifier: Ronn Arias MD Potassium [Moles/Vol] 4.6 mmol/L Normal 3.7-5.3 [facility] Comment on above: Performed By: #### U RNA, URTPRT, UMICAO, UEOS, UA #### [address] [address] Stamp Classifier: Ronn Arias MD Sodium [Moles/Vol] 147 mmol/L High 135-144 [facility] Comment on above: Performed By: #### U RNA, URTPRT, UMICAO, UEOS, UA #### [facility] [employer] [address] [place] [address] Stamp Classifier: Ronn Arias MD Urea nitrogen [Mass/Vol] 40 mg/dL High 8-23 [facility] Comment on above: Performed By: #### U RNA, URTPRT, UMICAO, UEOS, UA #### [address] [place], [place] [id number] Stamp Classifier: Ronn Airas MD IMMUNOFIXATION SERUM PROFILE on 01-05-2022 Pathologist Cyto stain Nom (Cvx/Vag) [ID] Reviewed by pathologist: Kailee Portillo M.D. [facility] Serum IFX Interp IMMUNOFIXATION IS NE GATIVE FOR MONOCLONAL IMMUNOGLOBULIN. [facility] Immunofixation,Bloodon 01-05 IFX - Interpret. IMMUNOFIXATION IS NE GATIVE FOR MONOCLONAL IMMUNOGLOBULIN. [facility] Comment on above: Performed By: #### U RNA, URTPRT, UMICAO, UEOS, UA #### [address] [id number] Stamp Classifier: Ronn Arias MD Pathologist Review: Reviewed by patholog ist: Kailee Portillo M.D. [facility] Comment on above: Performed By: #### U RNA, URTPRT, UMICAO, UEOS, UA #### [address] [id number] Stamp Classifier: Ronn Arias MD Basic Metab w/rfx MGon 01-04 (cont.) [facility] Comment on above: Result Comment: Aver age GFR for 60-69 years old: 85 mL/min/1.73sq m Chronic Kidney Disease: <60 mL/min/1.73sq m Kidney failure: <15 mL/min/1.73sq m eGFR calculated using average adult body mass. Additional eGFR calculator available at: http://www.[employer].com/multiple_crcl_2012.htm Performed By: #### U RNA, URTPRT, UMICAO, UEOS, UA #### [address] [address] Stamp Classifier: Ronn Arias MD Anion gap [Moles/Vol] 13 mmol/L Normal 9-17 [facility] Comment on above: Performed By: #### U RNA, URTPRT, UMICAO, UEOS, UA #### [facility] [employer] [address] [place] [address] Stamp Classifier: Ronn Arias MD Calcium [Mass/Vol] 6.6 mg/dL Low 8.6-10.4 [facility] Comment on above: Performed By: #### U RNA, URTPRT, UMICAO, UEOS, UA #### [facility] [employer] [address] [place] [address] Stamp Classifier: Ronn Arias MD Chloride [Moles/Vol] 107 mmol/L Normal 98-107 [facility] Comment on above: Performed By: #### U RNA, URTPRT, UMICAO, UEOS, UA #### [facility] [employer] [address] [place] [address] Stamp Classifier: Ronn Arias MD CO2 [Moles/Vol] 21 mmol/L Normal 20-31 [facility] Comment on above: Performed By: #### U RNA, URTPRT, UMICAO, UEOS, UA #### [facility] [employer] [address] [place] [address] Stamp Classifier: Ronn Arias MD Creatinine [Mass/Vol] 3.07 mg/dL High 0.70-1.20 [facility] Comment on above: Performed By: #### U RNA, URTPRT, UMICAO, UEOS, UA #### [facility] [employer] [address] [place] [address] Stamp Classifier: Ronn Arias MD GFR, Amer 25 mL/min Low >60 [facility] Comment on above: Performed By: #### U RNA, URTPRT, UMICAO, UEOS, UA #### [facility] [employer] [address] [place] [address] Stamp Classifier: Ronn Arias MD GFR,non Amer 20 mL/min Low >60 [facility] Comment on above: Performed By: #### U RNA, URTPRT, UMICAO, UEOS, UA #### [facility] [address] [place] [address] Stamp Classifier: Ronn Arias MD Glucose [Mass/Vol] 95 mg/dL Normal 70-99 [facility] Comment on above: Performed By: #### U RNA, URTPRT, UMICAO, UEOS, UA #### [facility] [employer] [address] [place] [address] Stamp Classifier: Ronn Arias MD Potassium [Moles/Vol] 4.3 mmol/L Normal 3.7-5.3 [facility] Comment on above: Performed By: #### U RNA, URTPRT, UMICAO, UEOS, UA #### [facility] [employer] [address] [place] [address] Stamp Classifier: Ronn Arias MD Sodium [Moles/Vol] 141 mmol/L Normal 135-144 [facility] Comment on above: Performed By: #### U RNA, URTPRT, UMICAO, UEOS, UA #### [facility] [address] [place] [address] Stamp Classifier: Ronn Arias MD Urea nitrogen [Mass/Vol] 54 mg/dL High 8-23 [facility] Comment on above: Performed By: #### U RNA, URTPRT, UMICAO, UEOS, UA #### [facility] [employer] [address] [place] [address] Stamp Classifier: Ronn Arias MD Basic Metabolic Panel w/ Ref luz to MGon 01-04-2022 Anion gap [Moles/Vol] 13 mmol/L 9 - 17 mmol/L [facility] Calcium [Mass/Vol] 6.6 mg/dL Low 8.6 - 10. 4 mg/dL [facility] Chloride [Moles/Vol] 107 mmol/L 98 - 107 mmol/L [facility] CO2 [Moles/Vol] 21 mmol/L 20 - 31 mmol/L [facility] Creatinine [Mass/Vol] 3.07 mg/dL High 0.7 - 1.2 mg/dL [facility] GFR 25 mL/min Low 60 - PINF mL/min [facility] GFR Non- 20 mL/min Low 60 - PINF mL/min [facility] GFR/1.73 sq M.predicted MDRD (S/P/Bld) [Vol rate/Area] [facility] Comment on above: Average GFR for 60-6 9 years old: 85 mL/min/1.73sq m Chronic Kidney Disease: <60 mL/min/1.73sq m Kidney failure: <15 mL/min/1.73sq m eGFR calculated using average adult body mass. Additional eGFR calculator available at: http://www.[employer]/multiple_crcl_2012.htm Glucose [Mass/Vol] 95 mg/dL 70 - 99 mg/dL [facility] Interpretation and review of laboratory results Abnormal [facility] Potassium [Moles/Vol] 4.3 mmol/L 3.7 - 5.3 mmol/L [facility] Sodium [Moles/Vol] 141 mmol/L 135 - 144 mmol/L [facility] Urea nitrogen (BldV) [Mass/Vol] 54 mg/dL High 8 - 23 mg/dL [facility] CBC with Auto Differentialon 01-04-2022 Absolute Eos # 0.19 [facility] Absolute Immature Granulocyte 0.09 [facility] Absolute Lymph # 1.34 [facility] Absolute Weston # 1.[address] [facility] Basophils Absolute [facility] Basophils/100 WBC (Bld) 0 % 0 - 2 % [facility] Eosinophils/100 WBC (Bld) 2 % 1 - 4 % [facility] Hematocrit (Bld) [Volume fraction] 28.4 % Low 40.7 - 50.3 % [facility] Hemoglobin (Bld) [Mass/Vol] 9.3 g/dL Low 13 - 17 g/dL [facility] Immature granulocytes/100 WBC (Bld) 1 % High 0 [facility] Interpretation and review of laboratory results Abnormal [facility] Lymphocytes/100 WBC (Bld) 11 % Low 24 - 43 % [facility] MCH (RBC) [Entitic mass] 27.4 pg 25.2 - 33.5 pg [facility] MCHC (RBC) [Mass/Vol] 32.7 g/dL 28.4 - 34.8 g/dL [facility] MCV (RBC) [Entitic vol] 83.8 fL 82.6 - 102.9 fL [facility] Monocytes/100 WBC (Bld) 8 % 3 - 12 % [facility] NRBC Automated 0.0 0.0 per 100 WBC [facility] Platelet distribution width (Bld) [Ratio] 14.3 % 11.8 - 14.4 % [facility] Platelet mean volume (Bld) [Entitic vol] 10.6 fL 8.1 - 13.5 fL [facility] Platelets (Bld) [#/Vol] 177 10*3/uL [facility] RBC (Bld) [#/Vol] 3.39 10*6/uL Low 4.21 - 5.77 m/uL [facility] Segmented neutrophils/100 WBC (Bld) 78 % High 36 - 65 % [facility] Segs Absolute 9.54 High [facility] WBC (Bld) [#/Vol] 12.2 10*3/uL High [facility] CBC with Diffon 01-04-2022 Abs. Basophil <0.03 Normal 0.00-0.20 [facility] Comment on above: Performed By: #### U RNA, URTPRT, UMICAO, UEOS, UA #### [facility] [address] [place] [address] Stamp Classifier: Ronn Arias MD Abs.Imm.Granulocyte 0.09 k/uL Normal 0.00-0.30 [facility] Comment on above: Performed By: #### U RNA, URTPRT, UMICAO, UEOS, UA #### [address] [address] Stamp Classifier: Ronn Arias MD Abs.Neutrophil (Seg) 9.54 k/uL High 1.50-8.10 [facility] Comment on above: Performed By: #### U RNA, URTPRT, UMICAO, UEOS, UA #### [place] [address] Stamp Classifier: Ronn Arias MD Basophils/100 WBC (Bld) 0 % Normal 0-2 [facility] Comment on above: Performed By: #### U RNA, URTPRT, UMICAO, UEOS, UA #### [place] [address] Stamp Classifier: Ronn Airas MD Eosinophils (Bld) [#/Vol] 0.19 10*3/uL Normal 0.00-0.44 [facility] Comment on above: Performed By: #### U RNA, URTPRT, UMICAO, UEOS, UA #### [place] [address] Stamp Classifier: Ronn Arias MD Eosinophils/100 WBC (Bld) 2 % Normal 1-4 [facility] Comment on above: Performed By: #### U RNA, URTPRT, UMICAO, UEOS, UA #### [place] [address] Stamp Classifier: Ronn Arias MD Immature granulocytes/100 WBC (Bld) 1 % High 0 [facility] Comment on above: Performed By: #### U RNA, URTPRT, UMICAO, UEOS, UA #### [facility] [employer] [address] [place] [address] Stamp Classifier: Ronn Arias MD Lymphocytes (Bld) [#/Vol] 1.34 10*3/uL Normal 1.10-3.70 [facility] Comment on above: Performed By: #### U RNA, URTPRT, UMICAO, UEOS, UA #### [facility] [address] [place] [address] Stamp Classifier: Ronn Arias MD Lymphocytes/100 WBC (Bld) 11 % Low 24-43 [facility] Comment on above: Performed By: #### U RNA, URTPRT, UMICAO, UEOS, UA #### [address] [address] Stamp Classifier: Ronn Arias MD Monocytes (Bld) [#/Vol] 1.01 10*3/uL Normal 0.10-1.20 [facility] Comment on above: Performed By: #### U RNA, URTPRT, UMICAO, UEOS, UA #### [address] [address] Stamp Classifier: Ronn Arias MD Monocytes/100 WBC (Bld) 8 % Normal 3-12 [facility] Comment on above: Performed By: #### U RNA, URTPRT, UMICAO, UEOS, UA #### [facility] [employer] [address] [place] [address] Stamp Classifier: Ronn Arias MD Neutrophil (Seg) 78 % High 36-65 [facility] Comment on above: Performed By: #### U RNA, URTPRT, UMICAO, UEOS, UA #### [facility] [employer] [address] [place] [address] Stamp Classifier: Ronn Arias MD Erythrocyte distribution width (RBC) [Ratio] 14.3 % Normal 11.8-14.4 [facility] Comment on above: Performed By: #### U RNA, URTPRT, UMICAO, UEOS, UA #### [address] [phone] Stamp Classifier: Ronn Arias MD Hematocrit (Bld) [Volume fraction] 28.4 % Low 40.7-50.3 [facility] Comment on above: Performed By: #### U RNA, URTPRT, UMICAO, UEOS, UA #### [facility] [employer] [address] [place] [address] Stamp Classifier: Ronn Arias MD Hemoglobin (Bld) [Mass/Vol] 9.3 g/dL Low 13.0-17.0 [facility] Comment on above: Performed By: #### U RNA, URTPRT, UMICAO, UEOS, UA #### [facility] [employer] [address] [place] [address] Stamp Classifier: Ronn Arias MD MCH (RBC) [Entitic mass] 27.4 pg Normal 25.2-33.5 [facility] Comment on above: Performed By: #### U RNA, URTPRT, UMICAO, UEOS, UA #### [facility] [employer] [address] [place] [address] Stamp Classifier: Ronn Arias MD MCHC (RBC) [Mass/Vol] 32.7 g/dL Normal 28.4-34.8 [facility] Comment on above: Performed By: #### U RNA, URTPRT, UMICAO, UEOS, UA #### [facility] [employer] [address] [place] [address] Stamp Classifier: Ronn Arias MD MCV (RBC) [Entitic vol] 83.8 fL Normal 82.6-102.9 [facility] Comment on above: Performed By: #### U RNA, URTPRT, UMICAO, UEOS, UA #### [address] [address] Stamp Classifier: Ronn Arias MD NRBC Automated 0.0 per 100 WBC Normal 0.0 [facility] Comment on above: Performed By: #### U RNA, URTPRT, UMICAO, UEOS, UA #### [address] [address] Stamp Classifier: Ronn Arias MD Platelet mean volume (Bld) [Entitic vol] 10.6 fL Normal 8.1-13.5 [facility] Comment on above: Performed By: #### U RNA, URTPRT, UMICAO, UEOS, UA #### [address] [address] Stamp Classifier: Ronn Arias MD Platelets (Bld) [#/Vol] 177 10*3/uL Normal 138-453 [facility] Comment on above: Performed By: #### U RNA, URTPRT, UMICAO, UEOS, UA #### [address] [address] Stamp Classifier: Ronn Arias MD RBC (Bld) [#/Vol] 3.39 10*6/uL Low 4.21-5.77 [facility] Comment on above: Performed By: #### U RNA, URTPRT, UMICAO, UEOS, UA #### [address] [address] Stamp Classifier: Ronn Arias MD WBC (Bld) [#/Vol] 12.2 10*3/uL High 3.5-11.3 [facility] Comment on above: Performed By: #### U RNA, URTPRT, UMICAO, UEOS, UA #### [address] [address] Stamp Classifier: Ronn Arias MD Basic Metab w/rfx MGon 01-03 (cont.) Normal [facility] Comment on above: Result Comment: Aver age GFR for 60-69 years old: 85 mL/min/1.73sq m Chronic Kidney Disease: <60 mL/min/1.73sq m Kidney failure: <15 mL/min/1.73sq m eGFR calculated using average adult body mass. Additional eGFR calculator available at: http://www.[employer]/multiple_crcl_2012.htm Performed By: #### L ACDS #### [address] [address] Stamp Classifier: Ronn Arias MD Anion gap [Moles/Vol] 16 mmol/L Normal 9-17 [facility] Comment on above: Performed By: #### L ACDS #### [address] [address] Stamp Classifier: Ronn Arias MD Calcium [Mass/Vol] 6.9 mg/dL Low 8.6-10.4 [facility] Comment on above: Performed By: #### L ACDS #### [address] [address] Stamp Classifier: Ronn Arias MD Chloride [Moles/Vol] 106 mmol/L Normal 98-107 [facility] Comment on above: Performed By: #### L ACDS #### [address] [address] Stamp Classifier: Ronn Arias MD CO2 [Moles/Vol] 16 mmol/L Low 20-31 [facility] Comment on above: Performed By: #### L ACDS #### [address] [address] Stamp Classifier: Ronn Arias MD Creatinine [Mass/Vol] 3.44 mg/dL High 0.70-1.20 [facility] Comment on above: Performed By: #### L ACDS #### [address] [address] Stamp Classifier: Ronn Arias MD GFR, Amer 22 mL/min Low >60 [facility] Comment on above: Performed By: #### L ACDS #### [address] [address] Stamp Classifier: Ronn Arias MD GFR,non Amer 18 mL/min Low >60 [facility] Comment on above: Performed By: #### L ACDS #### [address] [address] Stamp Classifier: Ronn Arias MD Glucose [Mass/Vol] 138 mg/dL High 70-99 [facility] Comment on above: Performed By: #### L ACDS #### [address] [address] Stamp Classifier: Ronn Arias MD Potassium [Moles/Vol] 4.8 mmol/L Normal 3.7-5.3 [facility] Comment on above: Performed By: #### L ACDS #### [address] [address] Stamp Classifier: Ronn Arias MD Sodium [Moles/Vol] 138 mmol/L Normal 135-144 [facility] Comment on above: Performed By: #### L ACDS #### [address] [address] Stamp Classifier: Ronn Arias MD Urea nitrogen [Mass/Vol] 53 mg/dL High 8-23 [facility] Comment on above: Performed By: #### L ACDS #### [address] [address] Stamp Classifier: Ronn Arias MD Basic Metabolic Panel w/ Ref luz to MGon 01-03-2022 Anion gap [Moles/Vol] 16 mmol/L 9 - 17 mmol/L [facility] Calcium [Mass/Vol] 6.9 mg/dL Low 8.6 - 10. 4 mg/dL [facility] Chloride [Moles/Vol] 106 mmol/L 98 - 107 mmol/L [facility] CO2 [Moles/Vol] 16 mmol/L Low 20 - 31 mmol/L [facility] Creatinine [Mass/Vol] 3.44 mg/dL High 0.7 - 1.2 mg/dL [facility] GFR 22 mL/min Low 60 - PINF mL/min [facility] GFR Non- 18 mL/min Low 60 - PINF mL/min [facility] GFR/1.73 sq M.predicted MDRD (S/P/Bld) [Vol rate/Area] [facility] Comment on above: Average GFR for 60-6 9 years old: 85 mL/min/1.73sq m Chronic Kidney Disease: <60 mL/min/1.73sq m Kidney failure: <15 mL/min/1.73sq m eGFR calculated using average adult body mass. Additional eGFR calculator available at: http://www.[employer]/multiple_crcl_2012.htm Glucose [Mass/Vol] 138 mg/dL High 70 - 99 mg/dL [facility] Potassium [Moles/Vol] 4.8 mmol/L 3.7 - 5.3 mmol/L [facility] Sodium [Moles/Vol] 138 mmol/L 135 - 144 mmol/L [facility] Urea nitrogen (BldV) [Mass/Vol] 53 mg/dL High 8 - 23 mg/dL [facility] C3on 01-03-2022 C3 108 mg/dL Normal 90-180 [facility] Comment on above: Performed By: #### U RNA, URTPRT, UMICAO, UEOS, UA #### [facility] [address] [place] [address] Stamp Classifier: Ronn Arias MD C3 COMPLEMENTon 01-03-2022 Complement C3 108 mg/dL 90 - 180 mg/dL [facility] C4on 01-03-2022 C4 21 mg/dL Normal 10-40 [facility] Comment on above: Performed By: #### U RNA, URAYANRT, SILVESTRE ULillyOS, UA #### [facility] [address] [id number] Stamp Classifier: Ronn Arias MD C4 COMPLEMENTon 01-03-2022 Complement C4 21 mg/dL 10 - 40 mg/dL [facility] CBC with Auto Differentialon 01-03-2022 Absolute Eos # [facility] Absolute Immature Granulocyte 0.09 [facility] Absolute Lymph # 0.76 Low [facility] Absolute Weston # 0.39 [facility] Basophils Absolute [facility] Basophils/100 WBC (Bld) 0 % 0 - 2 % [facility] Eosinophils/100 WBC (Bld) 0 % Low 1 - 4 % [facility] Hematocrit (Bld) [Volume fraction] 31.4 % Low 40.7 - 50.3 % [facility] Hemoglobin (Bld) [Mass/Vol] 10.3 g/dL Low 13 - 17 g/dL [facility] Immature granulocytes/100 WBC (Bld) 1 % High 0 [facility] Interpretation and review of laboratory results Abnormal [facility] Lymphocytes/100 WBC (Bld) 6 % Low 24 - 43 % [facility] MCH (RBC) [Entitic mass] 27.5 pg 25.2 - 33.5 pg [facility] MCHC (RBC) [Mass/Vol] 32.8 g/dL 28.4 - 34.8 g/dL [facility] MCV (RBC) [Entitic vol] 83.7 fL 82.6 - 102.9 fL [facility] Monocytes/100 WBC (Bld) 3 % 3 - 12 % [facility] NRBC Automated 0.0 0.0 per 100 WBC [facility] Platelet distribution width (Bld) [Ratio] 14.5 % High 11.8 - 14.4 % [facility] Platelet mean volume (Bld) [Entitic vol] 10.9 fL 8.1 - 13.5 fL [facility] Platelets (Bld) [#/Vol] 170 10*3/uL [facility] RBC (Bld) [#/Vol] 3.75 10*6/uL Low 4.21 - 5.77 m/uL [facility] RBC (Bld) [#/Vol] ANISOCYTOSIS PRESENT [facility] Segmented neutrophils/100 WBC (Bld) 90 % High 36 - 65 % [facility] Segs Absolute 11.26 High [facility] WBC (Bld) [#/Vol] 12.5 10*3/uL High [facility] CBC with Diffon 01-03-2022 Abs. Basophil <0.03 Normal 0.00-0.20 [facility] Comment on above: Performed By: #### L ACDS #### [place] [address] Stamp Classifier: Ronn Arias MD Abs. Eosinophil <0.03 Normal 0.00-0.44 [facility] Comment on above: Performed By: #### L ACDS #### [address] [address] Stamp Classifier: Ronn Arias MD Abs.Imm.Granulocyte 0.09 k/uL Normal 0.00-0.30 [facility] Comment on above: Performed By: #### L ACDS #### [address] [address] Stamp Classifier: Ronn Arias MD Abs.Neutrophil (Seg) 11.26 k/uL High 1.50-8.10 [facility] Comment on above: Performed By: #### L ACDS #### [address] [address] Stamp Classifier: Ronn Arias MD Basophils/100 WBC (Bld) 0 % Normal 0-2 [facility] Comment on above: Performed By: #### L ACDS #### [address] [address] Stamp Classifier: Ronn Arias MD Eosinophils/100 WBC (Bld) 0 % Low 1-4 [facility] Comment on above: Performed By: #### L ACDS #### [address] [address] Stamp Classifier: Ronn Arias MD Erythrocyte distribution width (RBC) [Ratio] 14.5 % High 11.8-14.4 [facility] Comment on above: Performed By: #### L ACDS #### [place] [address] Stamp Classifier: Ronn Arias MD Hematocrit (Bld) [Volume fraction] 31.4 % Low 40.7-50.3 [facility] Comment on above: Performed By: #### L ACDS #### [address] [address] Stamp Classifier: Ronn Arias MD Hemoglobin (Bld) [Mass/Vol] 10.3 g/dL Low 13.0-17.0 [facility] Comment on above: Performed By: #### L ACDS #### [place] [address] Stamp Classifier: Ronn Arias MD Immature granulocytes/100 WBC (Bld) 1 % High 0 [facility] Comment on above: Performed By: #### L ACDS #### [place] [address] Stamp Classifier: Ronn Arias MD Lymphocytes (Bld) [#/Vol] 0.76 10*3/uL Low 1.10-3.70 [facility] Comment on above: Performed By: #### L ACDS #### [address] [place] [address] Stamp Classifier: Ronn Arias MD Lymphocytes/100 WBC (Bld) 6 % Low 24-43 [facility] Comment on above: Performed By: #### L ACDS #### [address] [address] Stamp Classifier: Ronn Arias MD MCH (RBC) [Entitic mass] 27.5 pg Normal 25.2-33.5 [facility] Comment on above: Performed By: #### L ACDS #### [address] [address] Stamp Classifier: Ronn Arias MD MCHC (RBC) [Mass/Vol] 32.8 g/dL Normal 28.4-34.8 [facility] Comment on above: Performed By: #### L ACDS #### [address] [address] Stamp Classifier: Ronn Arias MD MCV (RBC) [Entitic vol] 83.7 fL Normal 82.6-102.9 [facility] Comment on above: Performed By: #### L ACDS #### [address] [address] Stamp Classifier: Ronn Arias MD Monocytes (Bld) [#/Vol] 0.39 10*3/uL Normal 0.10-1.20 [facility] Comment on above: Performed By: #### L ACDS #### [address] [address] Stamp Classifier: Ronn Arias MD Monocytes/100 WBC (Bld) 3 % Normal 3-12 [facility] Comment on above: Performed By: #### L ACDS #### [address] [address] Stamp Classifier: Ronn Arias MD Neutrophil (Seg) 90 % High 36-65 [facility] Comment on above: Performed By: #### L ACDS #### [address] [address] Stamp Classifier: Ronn Arias MD NRBC Automated 0.0 per 100 WBC Normal 0.0 [facility] Comment on above: Performed By: #### L ACDS #### [address] [address] Stamp Classifier: Ronn Arias MD Platelet mean volume (Bld) [Entitic vol] 10.9 fL Normal 8.1-13.5 [facility] Comment on above: Performed By: #### L ACDS #### [address] [address] Stamp Classifier: Ronn Arias MD Platelets (Bld) [#/Vol] 170 10*3/uL Normal 138-453 [facility] Comment on above: Performed By: #### L ACDS #### [address] [address] Stamp Classifier: Ronn Arias MD RBC (Bld) [#/Vol] 3.75 10*6/uL Low 4.21-5.77 [facility] Comment on above: Performed By: #### L ACDS #### [address] [address] Stamp Classifier: Ronn Arias MD RBC morphology finding Nom (Bld) ANISOCYTOSIS PRESENT Normal [facility] Comment on above: Performed By: #### L ACDS #### [address] [address] Stamp Classifier: Ronn Arias MD WBC (Bld) [#/Vol] 12.5 10*3/uL High 3.5-11.3 [facility] Comment on above: Performed By: #### L ACDS #### [address] [place], [place] [phone] Stamp Classifier: Ronn Arias MD EOSINOPHILS, URINEon 022 Eosinophil, Ur NONE SEEN NONE SEEN [facility] Eosinophils, Urineon 022 Eosinophils, Urine NONE SEEN Normal NSN [facility] Comment on above: Performed By: #### U RNA, URTPRT, UMICAO, UEOS, UA #### [employer] [place] [address] [phone] Stamp Classifier: Ronn Arias MD Free Realitos + Lambdaon 2021 Free Realitos Lt Chains 4.01 mg/dL High 0.37-1.94 [facility] Comment on above: Performed By: #### U RNA, URTPRT, UMICAO, UEOS, UA #### [facility] [employer] [address] [place] [address] [phone] Stamp Classifier: Ronn Arias MD Free Realitos/Lambda Rat 1.94 High 0.26-1.65 [facility] Comment on above: Performed By: #### U RNA, URTPRT, UMICAO, UEOS, UA #### [address] [place] [address] [phone] Stamp Classifier: Ronn Arias MD Free Lambda Lt Chains 2.07 mg/dL Normal 0.57-2.63 [facility] Comment on above: Performed By: #### U RNA, URTPRT, UMICAO, UEOS, UA #### [employer] [address] [place] [address] [phone] Stamp Classifier: Ronn Arias MD Hepatic Function Panelon Albumin [Mass/Vol] 3.2 g/dL Low 3.5 - 5.2 g/dL [facility] Albumin/Globulin [Mass ratio] 0.9 {ratio} Low 1 - 2.5 [facility] ALP (Bld) [Catalytic activity/Vol] 104 U/L 40 - 129 U/L [facility] ALT [Catalytic activity/Vol] 94 U/L High 5 - 41 U/L [facility] AST [Catalytic activity/Vol] 49 U/L High NINF - 40 U/L [facility] Bilirubin [Mass/Vol] 1.1 mg/dL 0.3 - 1.2 mg/dL [facility] Bilirubin, Indirect 0.5 mg/dL 0 - 1 mg/dL [facility] Bilirubin.indirect [Mass/Vol] 0.6 mg/dL High NINF - 0.31 mg/dL [facility] Free PSA/Total PSA [Mass fraction] 6.7 g/dL 6.4 - 8.3 g/dL [facility] Realitos/Lambda Quantitative Fr ee Light Chains, Serumon 01-03-2022 Free Realitos/Lambda Ratio 1.94 High 0.26 - 1.65 [facility] Interpretation and review of laboratory results Abnormal [facility] Realitos Free Light Chains QNT 4.01 mg/dL High 0.37 - 1.94 mg/dL [facility] Lambda Free Light Chains QNT 2.07 mg/dL 0.57 - 2.63 mg/dL [facility] Lactate, Sepsison 01-03-2022 Lactic Acid,Sep Wbld 1.8 mmol/L Normal 0.5-1.9 [facility] Comment on above: Performed By: #### L ACDS #### [address] [place] [phone] Stamp Classifier: Ronn Arias MD Lactic Acid, Sepsis, Whole Blood 1.8 mmol/L 0.5 - 1.9 mmol/L [facility] Lactic Acid,Sep Wbld 1.4 mmol/L Normal 0.5-1.9 [facility] Comment on above: Performed By: #### U RNA, URTPRT, UMICAO, UEOS, UA #### [address] [place] [phone] Stamp Classifier: Ronn Arias MD Lactic Acid, Sepsis, Whole Blood 1.4 mmol/L 0.5 - 1.9 mmol/L [facility] Lactic Acid,Sep Wbld 1.5 mmol/L Normal 0.5-1.9 [facility] Comment on above: Performed By: #### L ACDS #### [facility] [address] [place] [address] [phone] Stamp Classifier: Ronn Arias MD Lactic Acid, Sepsis, Whole Blood 1.5 mmol/L 0.5 - 1.9 mmol/L [facility] Lactic Acid,Sep Wbld 1.2 mmol/L Normal 0.5-1.9 [facility] Comment on above: Performed By: #### L ACDS #### [facility] [address] [place] [address] [phone] Stamp Classifier: Ronn Arias MD Lipaseon 01-03-2022 Lipase [Catalytic activity/Vol] 250 U/L High 13-60 [facility] Comment on above: Performed By: #### L ACDS #### [facility] [address] [place] [phone] Stamp Classifier: Ronn Arias MD Lipase [Catalytic activity/Vol] 250 U/L High 13 - 60 U/L [facility] Liver Profileon 01-03-2022 Albumin [Mass/Vol] 3.2 g/dL Low 3.5-5.2 [facility] Comment on above: Performed By: #### L ACDS #### [facility] [address] [place] [address] Stamp Classifier: Ronn Arias MD Albumin/Glob Ratio 0.9 Low 1.0-2.5 [facility] Comment on above: Performed By: #### L ACDS #### [facility] [employer] [address] [place] [address] [phone] Stamp Classifier: Ronn Arias MD Alkaline Phos 104 U/L Normal 40-129 [facility] Comment on above: Performed By: #### L ACDS #### [address] [address] Stamp Classifier: Ronn Arias MD ALT [Catalytic activity/Vol] 94 U/L High 5-41 [facility] Comment on above: Performed By: #### L ACDS #### [address] [address] Stamp Classifier: Ronn Arias MD AST [Catalytic activity/Vol] 49 U/L High <40 [facility] Comment on above: Performed By: #### L ACDS #### [address] [address] Stamp Classifier: Ronn Arias MD Bilirubin [Mass/Vol] 1.1 mg/dL Normal 0.3-1.2 [facility] Comment on above: Performed By: #### L ACDS #### [address] [address] Stamp Classifier: Ronn Arias MD Bilirubin, Indirect 0.5 mg/dL Normal 0.00-1.00 [facility] Comment on above: Performed By: #### L ACDS #### [address] [address] Stamp Classifier: Ronn Arias MD Bilirubin.indirect [Mass/Vol] 0.6 mg/dL High <0.31 [facility] Comment on above: Performed By: #### L ACDS #### [address] [address] Stamp Classifier: Ronn Arias MD Protein [Mass/Vol] 6.7 g/dL Normal 6.4-8.3 [facility] Comment on above: Performed By: #### L ACDS #### [address] [phone] Stamp Classifier: Ronn Arias MD Microscopic Urinalysison Casts UA 2 TO 5 HYALINE Refer ence range defined for non-centrifuged specimen. [facility] Epithelial Cells UA None [facility] RBC, UA 2 TO 5 [facility] Comment on above: Reference range defi juan for non-centrifuged specimen. WBC, UA 2 TO 5 [facility] No Panel Informationon 01-03 [facility] Interpretation and review of laboratory results Abnormal [facility] Procalcitoninon 01-03-2022 Procalcitonin 16.48 ng/mL High <0.09 [facility] Comment on above: Result Comment: Suspected Sepsis: <0.50 ng/mL Low likelihood of sepsis. 0.50-2.00 ng/mL Increased likelihood of sepsis. Antibiotics encouraged. >2.00 ng/mL High risk of sepsis/shock. Antibiotics strongly encouraged. Suspected Lower Resp Tract Infections: <0.24 ng/mL Low likelihood of bacterial infection. >0.24 ng/mL Increased likelihood of bacterial infection. Antibiotics encouraged. With successful antibiotic therapy, PCT levels should decrease rapidly. (Half-life of 24 to 36 hours.) Procalcitonin values from samples collected within the first 6 hours of systemic infection may still be low. Retesting may be indicated. Values from day 1 and day 4 can be entered into the Change in Procalcitonin Calculator (www.xqbdfb-prm-amztussofv.com) to determine the patient's Mortality Risk Prognosis In healthy neonates, plasma Procalcitonin (PCT) concentrations increase gradually after , reaching peak values at about 24 hours of age then decrease to normal values below 0.5 ng/mL by 48-72 hours of age. Performed By: #### L ACDS #### [address] [place], [place] [phone] Stamp Classifier: Ronn Arias MD Interpretation and review of laboratory results Abnormal [facility] Procalcitonin 16.48 ng/mL High NINF - 0.09 ng/mL [facility] Comment on above: Suspected Sepsis: <0.50 ng/mL Low likelihood of sepsis. 0.50-2.00 ng/mL Increased likelihood of sepsis. Antibiotics encouraged. >2.00 ng/mL High risk of sepsis/shock. Antibiotics strongly encouraged. Suspected Lower Resp Tract Infections: <0.24 ng/mL Low likelihood of bacterial infection. >0.24 ng/mL Increased likelihood of bacterial infection. Antibiotics encouraged. With successful antibiotic therapy, PCT levels should decrease rapidly. (Half-life of 24 to 36 hours.) Procalcitonin values from samples collected within the first 6 hours of systemic infection may still be low. Retesting may be indicated. Values from day 1 and day 4 can be entered into the Change in Procalcitonin Calculator (www.pykeyj-mrq-wjgeivtqme.Tugg) to determine the patient's Mortality Risk Prognosis In healthy neonates, plasma Procalcitonin (PCT) concentrations increase gradually after , reaching peak values at about 24 hours of age then decrease to normal values below 0.5 ng/mL by 48-72 hours of age. [facility] Protein / creatinine ratio, urineon 01-03-2022 Creatinine, Ur 84.8 mg/dL 39 - 259 mg/dL [facility] Protein (U) [Mass/Vol] 16 mg/dL [facility] Comment on above: No normal range esta blished. Urine Total Protein Creatinine Ratio 0.19 0 - 0.2 [facility] Protein,Tot,[place] Uron 2021 Creatinine [Mass/Vol] 84.8 mg/dL Normal 39.0-259.0 [facility] Comment on above: Performed By: #### U RNA, URTPRT, UMICAO, UEOS, UA #### [address] [place] [address] Stamp Classifier: Ronn Arias MD Tot Prot. Conc. 16 mg/dL Normal [facility] Comment on above: Result Comment: No n ormal range established. Performed By: #### U RNA, URTPRT, UMICAO, UEOS, UA #### [address] [place], [place] [phone] Stamp Classifier: Ronn Arias MD TP/Cre Ratio 0.19 Normal 0.00-0.20 [facility] Comment on above: Performed By: #### U RNA, URTPRT, UMICAO, UEOS, UA #### [address] [place], [place] [phone] Stamp Classifier: Ronn Arias MD SODIUM, URINE, RANDOMon 12-21 Sodium (U) [Moles/Vol] 83 mmol/L [facility] Comment on above: No normal range esta blished. SURGICAL PATHOLOGY REPORTon 01-03-2022 Surgical Pathology Report -- Diagnosis -- Gallbladder: - Chronic cholecystitis. - Cholelithiasis. Beth Barahona M.D. Electronically Signed Out rdd/01/03/2022 Clinical Information Pre-op Diagnosis: GALLSTONE PANCREATITIS Operative Findings: GALLBLADDER AND CONTENTS Operation Performed: LAPAROSCOPIC CHOLECYSTECTOMY Source of Specimen A: GALLBLADDER Gross Description YOLI ANTUNEZ, GALLBLADDER AND CONTENTS 9.5 x 4.0 x 1.5 cm focally disrupted gallbladder. The serosa is martin-pink, hyperemic, and smooth. The adventitia is roughened. The specimen is opened to reveal a martin-brown, slightly granular to velvety mucosa with a wall thickness measuring up to 0.7 cm. Within the lumen is scant red-green bile and blood clot. Additionally, two black slightly multifaceted choleliths are identified, each measuring 0.4 cm. No lesions or periductal lymph nodes are identified. Also received within the specimen container are two black choleliths, each measuring 0.5 cm. [employer]st sections 1c to include cystic duct margin (inked blue), fundus, body and neck. tm Microscopic Description Microscopic examination performed. SURGICAL PATHOLOGY CONSULTATION Patient Name: YOLI ANTUNEZ [facility] Rec: [id number] Path Number: [id number] [employer] [facility] ANATOMIC PATHOLOGY [address] [place] [address]. [place], [place] [address] [facility] Sodium, Random Uron 01-04-20 22 Sodium (U) [Moles/Vol] 83 mmol/L Normal [facility] Comment on above: Result Comment: No n ormal range established. Performed By: #### U RNA, URTPRT, UMICAO, UEOS, UA #### [address] [place] [address] [phone] Stamp Classifier: Ronn Arias MD Urinalysison 01-03-2022 Bilirubin Urine Negative NEGATIVE [facility] Color, UA Yellow Yellow [facility] Glucose, Ur Negative NEGATIVE [facility] Interpretation and review of laboratory results Abnormal [facility] Ketones Ql (U) Negative NEGATIVE [facility] Leukocyte esterase Test strip Ql (U) Negative NEGATIVE [facility] Nitrite, Urine Negative NEGATIVE [facility] pH, UA 5.5 5 - 8 [facility] Protein, UA TRACE Abnormal NEGATIVE [facility] Specific [place], UA 1.014 1.005 - 1.03 [facility] Turbidity UA Clear Clear [facility] Urine Hgb TRACE Abnormal NEGATIVE [facility] Urobilinogen, Urine Normal Normal [facility] Urinalysis, Routineon 2021 Bilirubin, SemiQt,Ur Negative Normal NEG [facility] Comment on above: Performed By: #### U RNA, URTPRT, UMICAO, UEOS, UA #### [address] [place] [address] [phone] Stamp Classifier: Ronn Arias MD Blood, Urine TRACE Abnormal NEG [facility] Comment on above: Performed By: #### U RNA, URTPRT, UMICAO, UEOS, UA #### [address] [place] [address] [phone] Stamp Classifier: Ronn Arias MD Clarity (U) Clear Normal CLEAR [facility] Comment on above: Performed By: #### U RNA, URTPRT, UMICAO, UEOS, UA #### [address] [address] Stamp Classifier: Ronn Arias MD Color (U) Yellow Normal YEL [facility] Comment on above: Performed By: #### U RNA, URTPRT, UMICAO, UEOS, UA #### [facility] [address] [place] [phone] Stamp Classifier: Ronn Arias MD Glucose Ql (U) Negative Normal NEG [facility] Comment on above: Performed By: #### U RNA, URTPRT, UMICAO, UEOS, UA #### [address] [address] Stamp Classifier: Ronn Arias MD Ketones Ql (U) Negative Normal NEG [facility] Comment on above: Performed By: #### U RNA, URTPRT, UMICAO, UEOS, UA #### [address] [address] Stamp Classifier: Ronn Arias MD Leukocyte esterase Test strip Ql (U) Negative Normal NEG [facility] Comment on above: Performed By: #### U RNA, URTPRT, UMICAO, UEOS, UA #### [address] [address] Stamp Classifier: Ronn Arias MD Nitrite,Ur Negative Normal NEG [facility] Comment on above: Performed By: #### U RNA, URTPRT, UMICAO, UEOS, UA #### [address] [address] Stamp Classifier: Ronn Arias MD PH,Ur 5.5 Normal 5.0-8.0 [facility] Comment on above: Performed By: #### U RNA, URTPRT, UMICAO, UEOS, UA #### [facility] [employer] [address] [place] [address] Stamp Classifier: Ronn Arias MD Protein Ql (U) TRACE Abnormal NEG [facility] Comment on above: Performed By: #### U RNA, URTPRT, UMICAO, UEOS, UA #### [facility] [employer] [address] [place] [phone] Stamp Classifier: Ronn Arias MD Spec. [place],Ur 1.014 Normal 1.005-1.03 0 [facility] Comment on above: Performed By: #### U RNA, URTPRT, UMICAO, UEOS, UA #### [facility] [employer] [address] [place] [address] Stamp Classifier: Ronn Arias MD Urobilinogen,Ur Normal Normal NORM [facility] Comment on above: Performed By: #### U RNA, URTPRT, UMICAO, UEOS, UA #### [address] [address] Stamp Classifier: Ronn Arias MD Urinalysis,Microon 2 Casts 2 TO 5 HYALINE Normal 0-8 [facility] Comment on above: Result Comment: Refe rence range defined for non-centrifuged specimen. Performed By: #### U RNA, URTPRT, UMICAO, UEOS, UA #### [address] [address] Stamp Classifier: Ronn Arias MD Epithelial cells LM Ql (Urine sed) None Normal 0-5 [facility] Comment on above: Performed By: #### U RNA, URTPRT, UMICAO, UEOS, UA #### [facility] [employer] [address] [place] [address] Stamp Classifier: Ronn Arias MD Urine RBC's 2 TO 5 Normal 0-4 [facility] Comment on above: Result Comment: Refe rence range defined for non-centrifuged specimen. Performed By: #### U RNA, URTPRT, UMICAO, UEOS, UA #### [address] [address] Stamp Classifier: Ronn Arias MD Urine WBC's 2 TO 5 Normal 0-5 [facility] Comment on above: Performed By: #### U RNA, URTPRT, UMICAO, UEOS, UA #### [address] [address] Stamp Classifier: Ronn Arias MD Basic Metab w/rfx MGon 01-02 (cont.) Normal [facility] Comment on above: Result Comment: Aver age GFR for 60-69 years old: 85 mL/min/1.73sq m Chronic Kidney Disease: <60 mL/min/1.73sq m Kidney failure: <15 mL/min/1.73sq m eGFR calculated using average adult body mass. Additional eGFR calculator available at: http://www.[employer].Tugg/multiple_crcl_2012.htm Performed By: #### L ACDS #### [address] [address] Stamp Classifier: Ronn Arias MD Anion gap [Moles/Vol] 14 mmol/L Normal 9-17 [facility] Comment on above: Performed By: #### L ACDS #### [address] [address] Stamp Classifier: Ronn Arias MD Calcium [Mass/Vol] 7.2 mg/dL Low 8.6-10.4 [facility] Comment on above: Performed By: #### L ACDS #### [facility] [employer] [address] [place] [address] Stamp Classifier: Ronn Arias MD Chloride [Moles/Vol] 108 mmol/L High 98-107 [facility] Comment on above: Performed By: #### L ACDS #### [facility] [employer] [address] [place] [address] Stamp Classifier: Ronn Arias MD CO2 [Moles/Vol] 20 mmol/L Normal 20-31 [facility] Comment on above: Performed By: #### L ACDS #### [address] [address] Stamp Classifier: Ronn Arias MD Creatinine [Mass/Vol] 3.51 mg/dL High 0.70-1.20 [facility] Comment on above: Performed By: #### L ACDS #### [address] [address] Stamp Classifier: Ronn Arias MD GFR, Amer 21 mL/min Low >60 [facility] Comment on above: Performed By: #### L ACDS #### [address] [address] Stamp Classifier: Ronn Arias MD GFR,non Amer 17 mL/min Low >60 [facility] Comment on above: Performed By: #### L ACDS #### [address] [address] Stamp Classifier: Ronn Arias MD Glucose [Mass/Vol] 122 mg/dL High 70-99 [facility] Comment on above: Performed By: #### L ACDS #### [address] [address] Stamp Classifier: Ronn Arias MD Potassium [Moles/Vol] 5.0 mmol/L Normal 3.7-5.3 [facility] Comment on above: Performed By: #### L ACDS #### [facility] [employer] [address] [place] [address] Stamp Classifier: Ronn Arias MD Sodium [Moles/Vol] 142 mmol/L Normal 135-144 [facility] Comment on above: Performed By: #### L ACDS #### [facility] [place] [address] Stamp Classifier: Ronn Arias MD Urea nitrogen [Mass/Vol] 55 mg/dL High 8-23 [facility] Comment on above: Performed By: #### L ACDS #### [address] [address] Stamp Classifier: Ronn Arias MD (cont.) Normal [facility] Comment on above: Result Comment: Aver age GFR for 60-69 years old: 85 mL/min/1.73sq m Chronic Kidney Disease: <60 mL/min/1.73sq m Kidney failure: <15 mL/min/1.73sq m eGFR calculated using average adult body mass. Additional eGFR calculator available at: http://www.[employer]/multiple_crcl_2012.htm Performed By: #### L IVP, BMPX, LIP, CDP #### [facility] [employer] [address] [place] [address] Stamp Classifier: Ronn Arias MD Anion gap [Moles/Vol] 14 mmol/L Normal 9-17 [facility] Comment on above: Performed By: #### L IVP, BMPX, LIP, CDP #### [facility] [employer] [address] [place] [address] Stamp Classifier: Ronn Arias MD Calcium [Mass/Vol] 7.2 mg/dL Low 8.6-10.4 [facility] Comment on above: Performed By: #### L IVP, BMPX, LIP, CDP #### [facility] [employer] [address] [place] [address] Stamp Classifier: oRnn Arias MD Chloride [Moles/Vol] 109 mmol/L High 98-107 [facility] Comment on above: Performed By: #### L IVP, BMPX, LIP, CDP #### [facility] [address] [place] [address] Stamp Classifier: Ronn Arias MD CO2 [Moles/Vol] 18 mmol/L Low 20-31 [facility] Comment on above: Performed By: #### L IVP, BMPX, LIP, CDP #### [facility] [address] [place] [address] Stamp Classifier: Ronn Arias MD Creatinine [Mass/Vol] 4.02 mg/dL High 0.70-1.20 [facility] Comment on above: Performed By: #### L IVP, BMPX, LIP, CDP #### [facility] [address] [place] [address] Stamp Classifier: Ronn Arias MD GFR, Amer 18 mL/min Low >60 [facility] Comment on above: Performed By: #### L IVP, BMPX, LIP, CDP #### [facility] [address] [place] [address] Stamp Classifier: Ronn Arias MD GFR,non Amer 15 mL/min Low >60 [facility] Comment on above: Performed By: #### L IVP, BMPX, LIP, CDP #### [facility] [address] [place] [address] Stamp Classifier: Ronn Arias MD Glucose [Mass/Vol] 106 mg/dL High 70-99 [facility] Comment on above: Performed By: #### L IVP, BMPX, LIP, CDP #### [facility] [address] [place] [address] Stamp Classifier: Ronn Arias MD Potassium [Moles/Vol] 4.6 mmol/L Normal 3.7-5.3 [facility] Comment on above: Performed By: #### L IVP, BMPX, LIP, CDP #### [facility] [address] [place] [address] Stamp Classifier: Ronn Arias MD Sodium [Moles/Vol] 141 mmol/L Normal 135-144 [facility] Comment on above: Performed By: #### L IVP, BMPX, LIP, CDP #### [facility] [address] [place], [place] [phone] Stamp Classifier: Ronn Arias MD Urea nitrogen [Mass/Vol] 63 mg/dL High 8-23 [facility] Comment on above: Performed By: #### L IVP, BMPX, LIP, CDP #### [facility] [address] [place], [place] [phone] Stamp Classifier: Ronn Arias MD Basic Metabolic Panel w/ Ref luz to MG 01-02-2022 Anion gap [Moles/Vol] 14 mmol/L 9 - 17 mmol/L [facility] Calcium [Mass/Vol] 7.2 mg/dL Low 8.6 - 10. 4 mg/dL [facility] Chloride [Moles/Vol] 108 mmol/L High 98 - 107 mmol/L [facility] CO2 [Moles/Vol] 20 mmol/L 20 - 31 mmol/L [facility] Creatinine [Mass/Vol] 3.51 mg/dL High 0.7 - 1.2 mg/dL [facility] GFR 21 mL/min Low 60 - PINF mL/min [facility] GFR Non- 17 mL/min Low 60 - PINF mL/min [facility] GFR/1.73 sq M.predicted MDRD (S/P/Bld) [Vol rate/Area] [facility] Comment on above: Average GFR for 60-6 9 years old: 85 mL/min/1.73sq m Chronic Kidney Disease: <60 mL/min/1.73sq m Kidney failure: <15 mL/min/1.73sq m eGFR calculated using average adult body mass. Additional eGFR calculator available at: http://www.[employer].Tugg/multiple_crcl_2012.htm Glucose [Mass/Vol] 122 mg/dL High 70 - 99 mg/dL [facility] Interpretation and review of laboratory results Abnormal [facility] Potassium [Moles/Vol] 5.0 mmol/L 3.7 - 5.3 mmol/L [facility] Sodium [Moles/Vol] 142 mmol/L 135 - 144 mmol/L [facility] Urea nitrogen (BldV) [Mass/Vol] 55 mg/dL High 8 - 23 mg/dL [facility] Anion gap [Moles/Vol] 14 mmol/L 9 - 17 mmol/L [facility] Calcium [Mass/Vol] 7.2 mg/dL Low 8.6 - 10. 4 mg/dL [facility] Chloride [Moles/Vol] 109 mmol/L High 98 - 107 mmol/L [facility] CO2 [Moles/Vol] 18 mmol/L Low 20 - 31 mmol/L [facility] Creatinine [Mass/Vol] 4.02 mg/dL High 0.7 - 1.2 mg/dL [facility] GFR 18 mL/min Low 60 - PINF mL/min [facility] GFR Non- 15 mL/min Low 60 - PINF mL/min [facility] GFR/1.73 sq M.predicted MDRD (S/P/Bld) [Vol rate/Area] [facility] Comment on above: Average GFR for 60-6 9 years old: 85 mL/min/1.73sq m Chronic Kidney Disease: <60 mL/min/1.73sq m Kidney failure: <15 mL/min/1.73sq m eGFR calculated using average adult body mass. Additional eGFR calculator available at: http://www.[employer].Tugg/multiple_crcl_2012.htm Glucose [Mass/Vol] 106 mg/dL High 70 - 99 mg/dL [facility] Potassium [Moles/Vol] 4.6 mmol/L 3.7 - 5.3 mmol/L [facility] Sodium [Moles/Vol] 141 mmol/L 135 - 144 mmol/L [facility] Urea nitrogen (BldV) [Mass/Vol] 63 mg/dL High 8 - 23 mg/dL [facility] CBC with Auto Differentialon 01-02-2022 Absolute Eos # 0.12 [facility] Absolute Immature Granulocyte 0.00 [facility] Absolute Lymph # 0.37 Low [facility] Absolute Weston # 0.49 [facility] Basophils (Bld) [#/Vol] 0.00 10*3/uL [facility] Basophils/100 WBC (Bld) 0 % 0 - 2 % [facility] Eosinophils/100 WBC (Bld) 1 % 1 - 4 % [facility] Hematocrit (Bld) [Volume fraction] 30.4 % Low 40.7 - 50.3 % [facility] Hemoglobin (Bld) [Mass/Vol] 10.2 g/dL Low 13 - 17 g/dL [facility] Immature granulocytes/100 WBC (Bld) 0 % 0 [facility] Interpretation and review of laboratory results Abnormal [facility] Lymphocytes/100 WBC (Bld) 3 % Low 24 - 44 % [facility] MCH (RBC) [Entitic mass] 28.0 pg 25.2 - 33.5 pg [facility] MCHC (RBC) [Mass/Vol] 33.6 g/dL 28.4 - 34.8 g/dL [facility] MCV (RBC) [Entitic vol] 83.5 fL 82.6 - 102.9 fL [facility] Monocytes/100 WBC (Bld) 4 % 1 - 7 % [facility] Morphology Gordon (Bld) [Interp] Normal [facility] NRBC Automated 0.0 0.0 per 100 WBC [facility] Platelet distribution width (Bld) [Ratio] 14.4 % 11.8 - 14.4 % [facility] Platelet mean volume (Bld) [Entitic vol] 10.3 fL 8.1 - 13.5 fL [facility] Platelets (Bld) [#/Vol] 150 10*3/uL [facility] RBC (Bld) [#/Vol] 3.64 10*6/uL Low 4.21 - 5.77 m/uL [facility] Segmented neutrophils/100 WBC (Bld) 92 % High 36 - 66 % [facility] Segs Absolute 11.22 High [facility] WBC (Bld) [#/Vol] 12.2 10*3/uL High [facility] CBC with Diffon 01-02-2022 Abs. Basophil 0.00 k/uL Normal 0.0-0.2 [facility] Comment on above: Performed By: #### L ACDS #### [facility] [employer] [address] [place] [address] Stamp Classifier: Ronn Arias MD Abs.Imm.Granulocyte 0.00 k/uL Normal 0.00-0.30 [facility] Comment on above: Performed By: #### L ACDS #### [address] [address] Stamp Classifier: Ronn Arias MD Abs.Neutrophil (Seg) 11.22 k/uL High 1.8-7.7 [facility] Comment on above: Performed By: #### L ACDS #### [address] [address] Stamp Classifier: Ronn Arias MD Basophils/100 WBC (Bld) 0 % Normal 0-2 [facility] Comment on above: Performed By: #### L ACDS #### [address] [address] Stamp Classifier: Ronn Arias MD Eosinophils (Bld) [#/Vol] 0.12 10*3/uL Normal 0.0-0.4 [facility] Comment on above: Performed By: #### L ACDS #### [facility] [employer] [address] [place] [address] Stamp Classifier: Ronn Arias MD Eosinophils/100 WBC (Bld) 1 % Normal 1-4 [facility] Comment on above: Performed By: #### L ACDS #### [address] [address] Stamp Classifier: Ronn Arias MD Immature granulocytes/100 WBC (Bld) 0 % Normal 0 [facility] Comment on above: Performed By: #### L ACDS #### [address] [address] Stamp Classifier: Ronn Arias MD Lymphocytes (Bld) [#/Vol] 0.37 10*3/uL Low 1.0-4.8 [facility] Comment on above: Performed By: #### L ACDS #### [address] [address] Stamp Classifier: Ronn Arias MD Lymphocytes/100 WBC (Bld) 3 % Low 24-44 [facility] Comment on above: Performed By: #### L ACDS #### [address] [address] Stamp Classifier: Ronn Arias MD Monocytes (Bld) [#/Vol] 0.49 10*3/uL Normal 0.1-0.8 [facility] Comment on above: Performed By: #### L ACDS #### [address] [address] Stamp Classifier: Ronn Arias MD Monocytes/100 WBC (Bld) 4 % Normal 1-7 [facility] Comment on above: Performed By: #### L ACDS #### [address] [address] Stamp Classifier: Ronn Arias MD Morphology Gordon (Bld) [Interp] Normal Normal [facility] Comment on above: Performed By: #### L ACDS #### [address] [address] Stamp Classifier: Ronn Arias MD Neutrophil (Seg) 92 % High 36-66 [facility] Comment on above: Performed By: #### L ACDS #### [address] [address] Stamp Classifier: Ronn Arias MD Erythrocyte distribution width (RBC) [Ratio] 14.4 % Normal 11.8-14.4 [facility] Comment on above: Performed By: #### L ACDS #### [address] [address] Stamp Classifier: Ronn Arias MD Hematocrit (Bld) [Volume fraction] 30.4 % Low 40.7-50.3 [facility] Comment on above: Performed By: #### L ACDS #### [address] [address] Stamp Classifier: Ronn Arias MD Hemoglobin (Bld) [Mass/Vol] 10.2 g/dL Low 13.0-17.0 [facility] Comment on above: Performed By: #### L ACDS #### [address] [address] Stamp Classifier: Ronn Arias MD MCH (RBC) [Entitic mass] 28.0 pg Normal 25.2-33.5 [facility] Comment on above: Performed By: #### L ACDS #### [address] [address] Stamp Classifier: Ronn Arias MD MCHC (RBC) [Mass/Vol] 33.6 g/dL Normal 28.4-34.8 [facility] Comment on above: Performed By: #### L ACDS #### [address] [address] Stamp Classifier: Ronn Arias MD MCV (RBC) [Entitic vol] 83.5 fL Normal 82.6-102.9 [facility] Comment on above: Performed By: #### L ACDS #### [address] [address] Stamp Classifier: Ronn Arias MD NRBC Automated 0.0 per 100 WBC Normal 0.0 [facility] Comment on above: Performed By: #### L ACDS #### [address] [address] Stamp Classifier: Ronn Arias MD Platelet mean volume (Bld) [Entitic vol] 10.3 fL Normal 8.1-13.5 [facility] Comment on above: Performed By: #### L ACDS #### [address] [address] Stamp Classifier: Ronn Arias MD Platelets (Bld) [#/Vol] 150 10*3/uL Normal 138-453 [facility] Comment on above: Performed By: #### L ACDS #### [address] [address] Stamp Classifier: Ronn Arias MD RBC (Bld) [#/Vol] 3.64 10*6/uL Low 4.21-5.77 [facility] Comment on above: Performed By: #### L ACDS #### [address] [address] Stamp Classifier: Ronn Arias MD WBC (Bld) [#/Vol] 12.2 10*3/uL High 3.5-11.3 [facility] Comment on above: Performed By: #### L ACDS #### [address] [address] Stamp Classifier: Ronn Arias MD Cult,Urineon 01-02-2022 Cult,Urine Specimen Description .URINE Culture NO GROWTH Report Status FINAL 01/02/2022 Normal [facility] Comment on above: Performed By: #### U RNA, URTPRT, UMICAO, UEOS, UA #### [address] [address] Stamp Classifier: Ronn Arias MD Culture, Urineon 01-02-2022 Bacteria identified Cx Nom (U) NO GROWTH [facility] Specimen Description .URINE [facility] Hepatic Function Panelon Albumin [Mass/Vol] 2.9 g/dL Low 3.5 - 5.2 g/dL [facility] Albumin/Globulin [Mass ratio] 0.9 {ratio} Low 1 - 2.5 [facility] ALP (Bld) [Catalytic activity/Vol] 96 U/L 40 - 129 U/L [facility] ALT [Catalytic activity/Vol] 123 U/L High 5 - 41 U/L [facility] AST [Catalytic activity/Vol] 50 U/L High NINF - 40 U/L [facility] Bilirubin [Mass/Vol] 1.8 mg/dL High 0.3 - 1.2 mg/dL [facility] Bilirubin, Indirect 0.7 mg/dL 0 - 1 mg/dL [facility] Bilirubin.indirect [Mass/Vol] 1.1 mg/dL High NINF - 0.31 mg/dL [facility] Free PSA/Total PSA [Mass fraction] 6.1 g/dL Low 6.4 - 8.3 g/dL [facility] Lactate, Sepsison 01-02-2022 Lactic Acid, Sepsis, Whole Blood 1.2 mmol/L 0.5 - 1.9 mmol/L [facility] Lactic Acid,Sep Wbld 1.3 mmol/L Normal 0.5-1.9 [facility] Comment on above: Performed By: #### U RNA, URTPRT, UMICAO, UEOS, UA #### [facility] [address] [place] [address] Stamp Classifier: Ronn Arias MD Lactic Acid, Sepsis, Whole Blood 1.3 mmol/L 0.5 - 1.9 mmol/L [facility] Lactic Acid,Sep Wbld 1.0 mmol/L Normal 0.5-1.9 [facility] Comment on above: Performed By: #### U RNA, URTPRT, UMICAO, UEOS, UA #### [facility] [address] [place] [address] Stamp Classifier: Ronn Arias MD Lactic Acid, Sepsis, Whole Blood 1.0 mmol/L 0.5 - 1.9 mmol/L [facility] Lactic Acid,Sep Wbld 0.9 mmol/L Normal 0.5-1.9 [facility] Comment on above: Performed By: #### U RNA, URTPRT, UMICAO, UEOS, UA #### [facility] [address] [place] [address] Stamp Classifier: Ronn Arias MD Lactic Acid, Sepsis, Whole Blood 0.9 mmol/L 0.5 - 1.9 mmol/L [facility] Lipaseon 01-02-2022 Lipase [Catalytic activity/Vol] 1280 U/L High 13-60 [facility] Comment on above: Performed By: #### L IVP, BMPX, LIP, CDP #### [facility] [address] [place] [address] Stamp Classifier: Ronn Arias MD Interpretation and review of laboratory results Abnormal [facility] Lipase [Catalytic activity/Vol] 1280 U/L High 13 - 60 U/L [facility] Liver Profileon 01-02-2022 Albumin [Mass/Vol] 2.9 g/dL Low 3.5-5.2 [facility] Comment on above: Performed By: #### L IVP, BMPX, LIP, CDP #### [facility] [address] [place] [address] Stamp Classifier: Ronn Arias MD Albumin/Glob Ratio 0.9 Low 1.0-2.5 [facility] Comment on above: Performed By: #### L IVP, BMPX, LIP, CDP #### [facility] [address] [place] [address] Stamp Classifier: Ronn Arias MD Alkaline Phos 96 U/L Normal 40-129 [facility] Comment on above: Performed By: #### L IVP, BMPX, LIP, CDP #### [facility] [address] [place] [address] Stamp Classifier: Ronn Arias MD ALT [Catalytic activity/Vol] 123 U/L High 5-41 [facility] Comment on above: Performed By: #### L IVP, BMPX, LIP, CDP #### [facility] [employer] [address] [place] [address] Stamp Classifier: Ronn Arias MD AST [Catalytic activity/Vol] 50 U/L High <40 [facility] Comment on above: Performed By: #### L IVP, BMPX, LIP, CDP #### [facility] [address] [place] [address] Stamp Classifier: Ronn Arias MD Bilirubin [Mass/Vol] 1.8 mg/dL High 0.3-1.2 [facility] Comment on above: Performed By: #### L IVP, BMPX, LIP, CDP #### [facility] [employer] [address] [place] [address] Stamp Classifier: Ronn Arias MD Bilirubin, Indirect 0.7 mg/dL Normal 0.00-1.00 [facility] Comment on above: Performed By: #### L IVP, BMPX, LIP, CDP #### [facility] [address] [place] [address] Stamp Classifier: Ronn Arias MD Bilirubin.indirect [Mass/Vol] 1.1 mg/dL High <0.31 [facility] Comment on above: Performed By: #### L IVP, BMPX, LIP, CDP #### [facility] [employer] [address] [place] [address] Stamp Classifier: Ronn Arias MD Protein [Mass/Vol] 6.1 g/dL Low 6.4-8.3 [facility] Comment on above: Performed By: #### L IVP, BMPX, LIP, CDP #### [facility] [employer] [address] [place], [place] [phone] Stamp Classifier: Ronn Arias MD No Panel Informationon 01-02 Interpretation and review of laboratory results Abnormal [facility] Protein,Tot,Magnolia Uron 2021 Tot Prot. Conc. 59 mg/dL Normal [facility] Comment on above: Result Comment: No n ormal range established. Performed By: #### U RNA, URTPRT, UMICAO, UEOS, UA #### [facility] [employer] [address] [place] [phone] Stamp Classifier: Ronn Arais MD Surgical Pathologyon 022 Surgical Pathology (NOTE) -- Diagnosis -- Gallbladder: - Chronic cholecystitis. - Cholelithiasis. Beth Barahona M.D. Electronically Signed Out rdd/01/03/2022 Clinical Information Pre-op Diagnosis: GALLSTONE PANCREATITIS Operative Findings: GALLBLADDER AND CONTENTS Operation Performed: LAPAROSCOPIC CHOLECYSTECTOMY Source of Specimen A: GALLBLADDER Gross Description YOLI ANTUNEZ, GALLBLADDER AND CONTENTS 9.5 x 4.0 x 1.5 cm focally disrupted gallbladder. The serosa is martin-pink, hyperemic, and smooth. The adventitia is roughened. The specimen is opened to reveal a martin-brown, slightly granular to velvety mucosa with a wall thickness measuring up to 0.7 cm. Within the lumen is scant red-green bile and blood clot. Additionally, two black slightly multifaceted choleliths are identified, each measuring 0.4 cm. No lesions or periductal lymph nodes are identified. Also received within the specimen container are two black choleliths, each measuring 0.5 cm. Public Policy Analyst sections 1c to include cystic duct margin (inked blue), fundus, body and neck. tm Microscopic Description Microscopic examination performed. SURGICAL PATHOLOGY CONSULTATION Patient Name: YOLI ANTUNEZ [facility] Rec: [id number] Path Number: [id number] [facility] [employer] [facility] ANATOMIC PATHOLOGY [address] [place] [phone] Normal [facility] Comment on above: Performed By: #### L ACDS #### [facility] [address] [place], [place] [phone] Stamp Classifier: Ronn Arias MD US RENAL LIMITEDon US RENAL LIMITED EXAMINATION: ULTRASOUND OF THE KIDNEYS 01/02/2022 8:22 am COMPARISON: MRI abdomen from 01/01/2022 HISTORY: ORDERING SYSTEM PROVIDED HISTORY: EMELIA on CKD TECHNOLOGIST PROVIDED HISTORY: EMELIA on CKD 66-year-old male with acute kidney injury on chronic kidney disease FINDINGS: Right kidney measures 14.2 x 6.3 x 5.6 cm. Right renal cortical thickness measures 1.6 cm. Left kidney measures 12.9 x 5.3 x 6.0 cm. Left renal cortical thickness measures 1.7 cm. No hydronephrosis or perinephric fluid. No echogenic foci with posterior acoustic shadowing to suggest renal calculi. Gross preservation of the bilateral corticomedullary differentiation. IMPRESSION: Unremarkable renal ultrasound. No hydronephrosis. Interpreted by: Naif Bean MD Signed by: Naif Bean MD 01/02/22 Final result Normal [facility] Unremarkable renal ultrasound. No hydronephrosis. [facility] RIS CONSOLIDATED EXAMINATION: ULTRASOUND OF THE KIDNEYS 01/02/2022 8:22 am COMPARISON: MRI abdomen from 01/01/2022 HISTORY: ORDERING SYSTEM PROVIDED HISTORY: EMELIA on CKD TECHNOLOGIST PROVIDED HISTORY: EMELIA on CKD 66-year-old male with acute kidney injury on chronic kidney disease FINDINGS: Right kidney measures 14.2 x 6.3 x 5.6 cm. Right renal cortical thickness measures 1.6 cm. Left kidney measures 12.9 x 5.3 x 6.0 cm. Left renal cortical thickness measures 1.7 cm. No hydronephrosis or perinephric fluid. No echogenic foci with posterior acoustic shadowing to suggest renal calculi. Gross preservation of the bilateral corticomedullary differentiation. [facility] RIS CONSOLIDATED Naif Bean MD - 01/02/2022 EXAMINATION: ULTRASOUND OF THE KIDNEYS 01/02/2022 8:22 am COMPARISON: MRI abdomen from 01/01/2022 HISTORY: ORDERING SYSTEM PROVIDED HISTORY: EMELIA on CKD TECHNOLOGIST PROVIDED HISTORY: EMELIA on CKD 66-year-old male with acute kidney injury on chronic kidney disease FINDINGS: Right kidney measures 14.2 x 6.3 x 5.6 cm. Right renal cortical thickness measures 1.6 cm. Left kidney measures 12.9 x 5.3 x 6.0 cm. Left renal cortical thickness measures 1.7 cm. No hydronephrosis or perinephric fluid. No echogenic foci with posterior acoustic shadowing to suggest renal calculi. Gross preservation of the bilateral corticomedullary differentiation. IMPRESSION: Unremarkable renal ultrasound. No hydronephrosis. [facility] Work Phone: Radiology Study observation (narrative) [facility] Work Phone: RENAL LIMITEDOrdered By: Naif Bean on 01-02-2022 [facility] Work Phone: Basic Metabolic Panelon 12-21 Anion gap [Moles/Vol] 14 mmol/L 9 - 17 mmol/L [facility] Calcium [Mass/Vol] 6.4 mg/dL Low 8.6 - 10. 4 mg/dL [facility] Chloride [Moles/Vol] 106 mmol/L 98 - 107 mmol/L [facility] CO2 [Moles/Vol] 19 mmol/L Low 20 - 31 mmol/L [facility] Creatinine [Mass/Vol] 3.73 mg/dL High 0.7 - 1.2 mg/dL [facility] Comment on above: ICTERIC SPECIMEN GFR 20 mL/min Low 60 - PINF mL/min [facility] GFR Non- 16 mL/min Low 60 - PINF mL/min [facility] GFR/1.73 sq M.predicted MDRD (S/P/Bld) [Vol rate/Area] [facility] Comment on above: Average GFR for 60-6 9 years old: 85 mL/min/1.73sq m Chronic Kidney Disease: <60 mL/min/1.73sq m Kidney failure: <15 mL/min/1.73sq m eGFR calculated using average adult body mass. Additional eGFR calculator available at: http://www.[employer]/multiple_crcl_2012.htm Glucose [Mass/Vol] 114 mg/dL High 70 - 99 mg/dL [facility] Interpretation and review of laboratory results Abnormal [facility] Potassium [Moles/Vol] 4.4 mmol/L 3.7 - 5.3 mmol/L [facility] Sodium [Moles/Vol] 139 mmol/L 135 - 144 mmol/L [facility] Urea nitrogen (BldV) [Mass/Vol] 58 mg/dL High 8 - 23 mg/dL [facility] Basic Metabolic Profon 01-01 (cont.) Normal [facility] Comment on above: Result Comment: Aver age GFR for 60-69 years old: 85 mL/min/1.73sq m Chronic Kidney Disease: <60 mL/min/1.73sq m Kidney failure: <15 mL/min/1.73sq m eGFR calculated using average adult body mass. Additional eGFR calculator available at: http://www.[employer]/multiple_crcl_2012.htm Performed By: #### U RNA, URTPRT, UMICAO, UEOS, UA #### [facility] [address] [place] [address] Stamp Classifier: Ronn Arias MD Anion gap [Moles/Vol] 14 mmol/L Normal - [facility] Comment on above: Performed By: #### U RNA, URTPRT, UMICAO, UEOS, UA #### [facility] [address] [place] [address] Stamp Classifier: Ronn Arias MD Calcium [Mass/Vol] 6.4 mg/dL Low 8.6-10.4 [facility] Comment on above: Performed By: #### U RNA, URTPRT, UMICAO, UEOS, UA #### [facility] [address] [place] [address] Stamp Classifier: Ronn Arias MD Chloride [Moles/Vol] 106 mmol/L Normal 98-107 [facility] Comment on above: Performed By: #### U RNA, URTPRT, UMICAO, UEOS, UA #### [facility] [address] [place] [address] Stamp Classifier: Ronn Arias MD CO2 [Moles/Vol] 19 mmol/L Low 20-31 [facility] Comment on above: Performed By: #### U RNA, URTPRT, UMICAO, UEOS, UA #### [address] [address] Stamp Classifier: Ronn Arias MD Creatinine [Mass/Vol] 3.73 mg/dL High 0.70-1.20 [facility] Comment on above: Result Comment: ICTE JAYDON SPECIMEN Performed By: #### U RNA, URTPRT, UMICAO, UEOS, UA #### [facility] [employer] [address] [place] [address] Stamp Classifier: Ronn Arias MD GFR, Amer 20 mL/min Low >60 [facility] Comment on above: Performed By: #### U RNA, URTPRT, UMICAO, UEOS, UA #### [facility] [address] [place] [phone] Stamp Classifier: Ronn Arias MD GFR,non Amer 16 mL/min Low >60 [facility] Comment on above: Performed By: #### U RNA, URTPRT, UMICAO, UEOS, UA #### [facility] [employer] [address] [place] [address] Stamp Classifier: Ronn Arias MD Glucose [Mass/Vol] 114 mg/dL High 70-99 [facility] Comment on above: Performed By: #### U RNA, URTPRT, UMICAO, UEOS, UA #### [facility] [employer] [address] [place] [address] Stamp Classifier: Ronn Arias MD Potassium [Moles/Vol] 4.4 mmol/L Normal 3.7-5.3 [facility] Comment on above: Performed By: #### U RNA, URTPRT, UMICAO, UEOS, UA #### [facility] [employer] [address] [place] [address] Stamp Classifier: Ronn Arias MD Sodium [Moles/Vol] 139 mmol/L Normal 135-144 [facility] Comment on above: Performed By: #### U RNA, URTPRT, UMICAO, UEOS, UA #### [facility] [employer] [address] [place] [address] Stamp Classifier: Ronn Arias MD Urea nitrogen [Mass/Vol] 58 mg/dL High 8-23 [facility] Comment on above: Performed By: #### U RNA, URTPRT, UMICAO, UEOS, UA #### [facility] [employer] [address] [place] [address] Stamp Classifier: Ronn Arias MD CBCon 01-01-2022 Erythrocyte distribution width (RBC) [Ratio] 14.5 % High 11.8-14.4 [facility] Comment on above: Performed By: #### U RNA, URTPRT, UMICAO, UEOS, UA #### [facility] [employer] [address] [place] [address] Stamp Classifier: Ronn Arias MD Hematocrit (Bld) [Volume fraction] 30.0 % Low 40.7-50.3 [facility] Comment on above: Performed By: #### U RNA, URTPRT, UMICAO, UEOS, UA #### [facility] [address] [place] [address] Stamp Classifier: Ronn Arias MD Hemoglobin (Bld) [Mass/Vol] 10.0 g/dL Low 13.0-17.0 [facility] Comment on above: Performed By: #### U RNA, URTPRT, UMICAO, UEOS, UA #### [facility] [address] [place] [address] Stamp Classifier: Ronn Arias MD MCH (RBC) [Entitic mass] 28.2 pg Normal 25.2-33.5 [facility] Comment on above: Performed By: #### U RNA, URTPRT, UMICAO, UEOS, UA #### [facility] [employer] [address] [place] [address] Stamp Classifier: Ronn Arias MD MCHC (RBC) [Mass/Vol] 33.3 g/dL Normal 28.4-34.8 [facility] Comment on above: Performed By: #### U RNA, URTPRT, UMICAO, UEOS, UA #### [facility] [employer] [address] [place] [address] 9[address]76 Stamp Classifier: Ronn Arias MD MCV (RBC) [Entitic vol] 84.7 fL Normal 82.6-102.9 [facility] Comment on above: Performed By: #### U RNA, URTPRT, UMICAO, UEOS, UA #### [facility] [employer] [address] [place] [address] Stamp Classifier: Ronn Arias MD NRBC Automated 0.0 per 100 WBC Normal 0.0 [facility] Comment on above: Performed By: #### U RNA, URTPRT, UMICAO, UEOS, UA #### [facility] [employer] [address] [place] [address] 247[address] Stamp Classifier: Ronn Arias MD Platelet mean volume (Bld) [Entitic vol] 11.0 fL Normal 8.1-13.5 [facility] Comment on above: Performed By: #### U RNA, URTPRT, UMICAO, UEOS, UA #### [facility] [address] [place] [address] Stamp Classifier: Ronn Arias MD Platelets (Bld) [#/Vol] 157 10*3/uL Normal 138-453 [facility] Comment on above: Performed By: #### U RNA, URTPRT, UMICAO, UEOS, UA #### [facility] [place] [address] Stamp Classifier: Ronn Arias MD RBC (Bld) [#/Vol] 3.54 10*6/uL Low 4.21-5.77 [facility] Comment on above: Performed By: #### U RNA, URTPRT, UMICAO, UEOS, UA #### [facility] [address] [place] [address] Stamp Classifier: Ronn Arias MD WBC (Bld) [#/Vol] 16.8 10*3/uL High 3.5-11.3 [facility] Comment on above: Performed By: #### U RNA, URTPRT, UMICAO, UEOS, UA #### [facility] [address] [place] [address] Stamp Classifier: Ronn Arias MD Hematocrit (Bld) [Volume fraction] 30.0 % Low 40.7 - 50.3 % [employer] [facility] [employer] Hemoglobin (Bld) [Mass/Vol] 10.0 g/dL Low 13 - 17 g/dL [facility] [employer] MCH (RBC) [Entitic mass] 28.2 pg 25.2 - 33.5 pg [employer] [facility] MCHC (RBC) [Mass/Vol] 33.3 g/dL 28.4 - 34.8 g/dL [employer] [facility] MCV (RBC) [Entitic vol] 84.7 fL 82.6 - 102.9 fL [facility] NRBC Automated 0.0 0.0 per 100 WBC [facility] Platelet distribution width (Bld) [Ratio] 14.5 % High 11.8 - 14.4 % [facility] Platelet mean volume (Bld) [Entitic vol] 11.0 fL 8.1 - 13.5 fL [facility] Platelets (Bld) [#/Vol] 157 10*3/uL [facility] RBC (Bld) [#/Vol] 3.54 10*6/uL Low 4.21 - 5.77 m/uL [facility] WBC (Bld) [#/Vol] 16.8 10*3/uL High [facility] Calcium, Ionicon 01-01-2022 Calcium [Moles/Vol] 0.95 mmol/L Low 1.13-1.33 [facility] Comment on above: Performed By: #### U RNA, URTPRT, UMICAO, UEOS, UA #### [facility] [address] [place] [address] Stamp Classifier: Ronn Arias MD Calcium, Ionizedon Calcium, Ionized 0.95 mmol/L Low 1.13 - 1.33 mmol/L [facility] Interpretation and review of laboratory results Abnormal [facility] Comp Metabolic Pr/rfx MGon 0 01-01-2022 Creatinine [Mass/Vol] 3.74 mg/dL High 0.70-1.20 [facility] Comment on above: Result Comment: ICTE JAYDON SPECIMEN Performed By: #### U RNA, URTPRT, UMICAO, UEOS, UA #### [facility] [address] [place] [address] Stamp Classifier: Ronn Arias MD GFR, Amer 20 mL/min Low >60 [facility] Comment on above: Performed By: #### U RNA, URTPRT, UMICAO, UEOS, UA #### [facility] [employer] [address] [place] [address]186 Stamp Classifier: Ronn Arias MD GFR,non Amer 16 mL/min Low >60 [facility] Comment on above: Performed By: #### U RNA, URTPRT, UMICAO, UEOS, UA #### [facility] [employer] [address] [place] [address] 19708 Stamp Classifier: Ronn Arias MD (cont.) Normal [facility] Comment on above: Result Comment: Aver age GFR for 60-69 years old: 85 mL/min/1.73sq m Chronic Kidney Disease: <60 mL/min/1.73sq m Kidney failure: <15 mL/min/1.73sq m eGFR calculated using average adult body mass. Additional eGFR calculator available at: http://www.[employer]/multiple_crcl_2011.htm Performed By: #### U RNA, URTPRT, UMICAO, UEOS, UA #### [facility] [employer] [address] [place] [address] 14091 Stamp Classifier: Ronn Arias MD Albumin [Mass/Vol] 3.2 g/dL Low 3.5-5.2 [facility] Comment on above: Performed By: #### U RNA, URTPRT, UMICAO, UEOS, UA #### [facility] [employer] [address] [place] [address] 89538 Stamp Classifier: Ronn Arias MD Albumin/Glob Ratio 1.2 Normal 1.0-2.5 [facility] Comment on above: Performed By: #### U RNA, URTPRT, UMICAO, UEOS, UA #### [facility] [employer] [address] [place] [address]663 Stamp Classifier: Ronn Arias MD Alkaline Phos 101 U/L Normal 40-129 [facility] Comment on above: Performed By: #### U RNA, URTPRT, UMICAO, UEOS, UA #### [facility] [address] [place] [address] Stamp Classifier: Ronn Arias MD ALT [Catalytic activity/Vol] 185 U/L High 5-41 [facility] Comment on above: Performed By: #### U RNA, URTPRT, UMICAO, UEOS, UA #### [facility] [address] [place] [address] 87662 Stamp Classifier: Ronn Arias MD Anion gap [Moles/Vol] 12 mmol/L Normal 9-17 [facility] Comment on above: Performed By: #### U RNA, URTPRT, UMICAO, UEOS, UA #### [facility] [address] [place] [address] 25523 Stamp Classifier: Ronn Arias MD AST [Catalytic activity/Vol] 103 U/L High <40 [facility] Comment on above: Performed By: #### U RNA, URTPRT, UMICAO, UEOS, UA #### [facility] [address] [place] [address]24 Stamp Classifier: Ronn Arias MD Bilirubin [Mass/Vol] 4.3 mg/dL High 0.3-1.2 [facility] Comment on above: Performed By: #### U RNA, URTPRT, UMICAO, UEOS, UA #### [facility] [address] [place] [address] 33831 Stamp Classifier: Ronn Arias MD Calcium [Mass/Vol] 6.5 mg/dL Low 8.6-10.4 [facility] Comment on above: Performed By: #### U RNA, URTPRT, UMICAO, UEOS, UA #### [facility] [address] [place] [address] 75953 Stamp Classifier: Ronn Arias MD Chloride [Moles/Vol] 107 mmol/L Normal 98-107 [facility] Comment on above: Performed By: #### U RNA, URTPRT, UMICAO, UEOS, UA #### [facility] [employer] [address] [place] [address] 34952 Stamp Classifier: Ronn Arias MD CO2 [Moles/Vol] 19 mmol/L Low 20-31 [facility] Comment on above: Performed By: #### U RNA, URTPRT, UMICAO, UEOS, UA #### [facility] [address] [place] [address] 77303 Stamp Classifier: Ronn Arias MD Glucose [Mass/Vol] 109 mg/dL High 70-99 [facility] Comment on above: Performed By: #### U RNA, URTPRT, UMICAO, UEOS, UA #### [address] [address] Stamp Classifier: Ronn Arias MD Potassium [Moles/Vol] 4.4 mmol/L Normal 3.7-5.3 [facility] Comment on above: Performed By: #### U RNA, URTPRT, UMICAO, UEOS, UA #### [facility] [employer] [address] [place] [address] 31726 Stamp Classifier: Ronn Arias MD Protein [Mass/Vol] 5.8 g/dL Low 6.4-8.3 [facility] Comment on above: Performed By: #### U RNA, URTPRT, UMICAO, UEOS, UA #### [facility] [employer] [address] [place] [address] 09937 Stamp Classifier: Ronn Arias MD Sodium [Moles/Vol] 138 mmol/L Normal 135-144 [facility] Comment on above: Performed By: #### U RNA, URTPRT, UMICAO, UEOS, UA #### [facility] [employer] [address] [place] [address] 43608 Stamp Classifier: Ronn Arias MD Urea nitrogen [Mass/Vol] 59 mg/dL High 8-23 [facility] Comment on above: Performed By: #### U RNA, URTPRT, UMICAO, UEOS, UA #### [facility] [address] [place], [place] [phone] Stamp Classifier: Ronn Arias MD Creatinine [Mass/Vol] 3.86 mg/dL High 0.70-1.20 [facility] Comment on above: Result Comment: ICTE JAYDON SPECIMEN Performed By: #### U RNA, URTPRT, UMICAO, UEOS, UA #### [facility] [address] [place], [place] [phone] Stamp Classifier: Ronn Arias MD GFR, Amer 19 mL/min Low >60 [facility] Comment on above: Performed By: #### U RNA, URTPRT, UMICAO, UEOS, UA #### [facility] [address] [place], [place] [phone] Stamp Classifier: Ronn Arias MD GFR,non Amer 16 mL/min Low >60 [facility] Comment on above: Performed By: #### U RNA, URTPRT, UMICAO, UEOS, UA #### [facility] [address] [place] [address] [phone] Stamp Classifier: Ronn Arias MD (cont.) [facility] Comment on above: Result Comment: Aver age GFR for 60-69 years old: 85 mL/min/1.73sq m Chronic Kidney Disease: <60 mL/min/1.73sq m Kidney failure: <15 mL/min/1.73sq m eGFR calculated using average adult body mass. Additional eGFR calculator available at: http://www.[employer].Tugg/multiple_crcl_2012.htm Performed By: #### U RNA, URTPRT, UMICAO, UEOS, UA #### [address] [address] Stamp Classifier: Ronn Arias MD Albumin [Mass/Vol] 3.0 g/dL Low 3.5-5.2 [facility] Comment on above: Performed By: #### U RNA, URTPRT, UMICAO, UEOS, UA #### [address] [address] Stamp Classifier: Ronn Arias MD Albumin/Glob Ratio 1.2 Normal 1.0-2.5 [facility] Comment on above: Performed By: #### U RNA, URTPRT, UMICAO, UEOS, UA #### [address] [address] Stamp Classifier: Ronn Arias MD Alkaline Phos 98 U/L Normal 40-129 [facility] Comment on above: Performed By: #### U RNA, URTPRT, UMICAO, UEOS, UA #### [address] [address] Stamp Classifier: Ronn Arias MD ALT [Catalytic activity/Vol] 191 U/L High 5-41 [facility] Comment on above: Performed By: #### U RNA, URTPRT, UMICAO, UEOS, UA #### [address] [address] Stamp Classifier: Ronn Arias MD Anion gap [Moles/Vol] 13 mmol/L Normal 9-17 [facility] Comment on above: Performed By: #### U RNA, URTPRT, UMICAO, UEOS, UA #### [address] [address] Stamp Classifier: Ronn Arias MD AST [Catalytic activity/Vol] 112 U/L High <40 [facility] Comment on above: Performed By: #### U RNA, URTPRT, UMICAO, UEOS, UA #### [facility] [address] [place] [address]291 Stamp Classifier: Ronn Arias MD Bilirubin [Mass/Vol] 4.5 mg/dL High 0.3-1.2 [facility] Comment on above: Performed By: #### U RNA, URTPRT, UMICAO, UEOS, UA #### [facility] [address] [place] [address]15 Stamp Classifier: Ronn Arias MD Calcium [Mass/Vol] 6.5 mg/dL Low 8.6-10.4 [facility] Comment on above: Performed By: #### U RNA, URTPRT, UMICAO, UEOS, UA #### [facility] [employer] [address] [place] [address] 35821 Stamp Classifier: Ronn Arias MD Chloride [Moles/Vol] 109 mmol/L High 98-107 [facility] Comment on above: Performed By: #### U RNA, URTPRT, UMICAO, UEOS, UA #### [facility] [address] [place] [address] 92623 Stamp Classifier: Ronn Arias MD CO2 [Moles/Vol] 18 mmol/L Low 20-31 [facility] Comment on above: Performed By: #### U RNA, URTPRT, UMICAO, UEOS, UA #### [facility] [address] [place] [address] 91916 Stamp Classifier: Ronn Arias MD Glucose [Mass/Vol] 106 mg/dL High 70-99 [facility] Comment on above: Performed By: #### U RNA, URTPRT, UMICAO, UEOS, UA #### [facility] [address] [place] [address] 31741 Stamp Classifier: Ronn Arias MD Potassium [Moles/Vol] 4.5 mmol/L Normal 3.7-5.3 [facility] Comment on above: Performed By: #### U RNA, URTPRT, UMICAO, UEOS, UA #### [facility] [address] [place], [place] [phone] Stamp Classifier: Ronn Arias MD Protein [Mass/Vol] 5.5 g/dL Low 6.4-8.3 [facility] Comment on above: Performed By: #### U RNA, URTPRT, UMICAO, UEOS, UA #### [facility] [address] [place] [address] Stamp Classifier: Ronn Arias MD Sodium [Moles/Vol] 140 mmol/L Normal 135-144 [facility] Comment on above: Performed By: #### U RNA, URTPRT, UMICAO, UEOS, UA #### [facility] [address] [place], [place] [phone] Stamp Classifier: Ronn Arias MD Urea nitrogen [Mass/Vol] 59 mg/dL High 8-23 [facility] Comment on above: Performed By: #### U RNA, URTPRT, UMICAO, UEOS, UA #### [facility] [address] [place] [address] Stamp Classifier: Ronn Arias MD Comprehensive Metabolic Pane l w/ Reflex to MGon 01-01-2022 Albumin [Mass/Vol] 3.2 g/dL Low 3.5 - 5.2 g/dL [facility] Albumin/Globulin [Mass ratio] 1.2 {ratio} 1 - 2.5 [facility] ALP (Bld) [Catalytic activity/Vol] 101 U/L 40 - 129 U/L [facility] ALT [Catalytic activity/Vol] 185 U/L High 5 - 41 U/L [facility] Anion gap [Moles/Vol] 12 mmol/L 9 - 17 mmol/L [facility] AST [Catalytic activity/Vol] 103 U/L High NINF - 40 U/L [facility] Bilirubin [Mass/Vol] 4.3 mg/dL High 0.3 - 1.2 mg/dL [facility] Calcium [Mass/Vol] 6.5 mg/dL Low 8.6 - 10. 4 mg/dL [facility] Chloride [Moles/Vol] 107 mmol/L 98 - 107 mmol/L [facility] CO2 [Moles/Vol] 19 mmol/L Low 20 - 31 mmol/L [facility] Creatinine [Mass/Vol] 3.74 mg/dL High 0.7 - 1.2 mg/dL [facility] Comment on above: ICTERIC SPECIMEN Free PSA/Total PSA [Mass fraction] 5.8 g/dL Low 6.4 - 8.3 g/dL [facility] GFR 20 mL/min Low 60 - PINF mL/min [facility] GFR Non- 16 mL/min Low 60 - PINF mL/min [facility] GFR/1.73 sq M.predicted MDRD (S/P/Bld) [Vol rate/Area] [facility] Comment on above: Average GFR for 60-6 9 years old: 85 mL/min/1.73sq m Chronic Kidney Disease: <60 mL/min/1.73sq m Kidney failure: <15 mL/min/1.73sq m eGFR calculated using average adult body mass. Additional eGFR calculator available at: http://www.[employer].Tugg/multiple_crcl_2012.htm Glucose [Mass/Vol] 109 mg/dL High 70 - 99 mg/dL [facility] Interpretation and review of laboratory results Abnormal [facility] Potassium [Moles/Vol] 4.4 mmol/L 3.7 - 5.3 mmol/L [facility] Sodium [Moles/Vol] 138 mmol/L 135 - 144 mmol/L [facility] Urea nitrogen (BldV) [Mass/Vol] 59 mg/dL High 8 - 23 mg/dL [facility] Albumin [Mass/Vol] 3 g/dL Low 3.5 - 5.2 g/dL [facility] Albumin/Globulin [Mass ratio] 1.2 {ratio} 1 - 2.5 [facility] ALP (Bld) [Catalytic activity/Vol] 98 U/L 40 - 129 U/L [facility] ALT [Catalytic activity/Vol] 191 U/L High 5 - 41 U/L [facility] Anion gap [Moles/Vol] 13 mmol/L 9 - 17 mmol/L [facility] AST [Catalytic activity/Vol] 112 U/L High NINF - 40 U/L [facility] Bilirubin [Mass/Vol] 4.5 mg/dL High 0.3 - 1.2 mg/dL [facility] Calcium [Mass/Vol] 6.5 mg/dL Low 8.6 - 10. 4 mg/dL [facility] Chloride [Moles/Vol] 109 mmol/L High 98 - 107 mmol/L [facility] CO2 [Moles/Vol] 18 mmol/L Low 20 - 31 mmol/L [facility] Creatinine [Mass/Vol] 3.86 mg/dL High 0.7 - 1.2 mg/dL [facility] Comment on above: ICTERIC SPECIMEN Free PSA/Total PSA [Mass fraction] 5.5 g/dL Low 6.4 - 8.3 g/dL [facility] GFR 19 mL/min Low 60 - PINF mL/min [facility] GFR Non- 16 mL/min Low 60 - PINF mL/min [facility] GFR/1.73 sq M.predicted MDRD (S/P/Bld) [Vol rate/Area] [facility] Comment on above: Average GFR for 60-6 9 years old: 85 mL/min/1.73sq m Chronic Kidney Disease: <60 mL/min/1.73sq m Kidney failure: <15 mL/min/1.73sq m eGFR calculated using average adult body mass. Additional eGFR calculator available at: http://www.[employer]/multiple_crcl_2012.htm Glucose [Mass/Vol] 106 mg/dL High 70 - 99 mg/dL [facility] Potassium [Moles/Vol] 4.5 mmol/L 3.7 - 5.3 mmol/L [facility] Sodium [Moles/Vol] 140 mmol/L 135 - 144 mmol/L [facility] Urea nitrogen (BldV) [Mass/Vol] 59 mg/dL High 8 - 23 mg/dL [facility] Differentialon 01-01-2022 Abs. Basophil 0.03 k/uL Normal 0.00-0.20 [facility] Comment on above: Performed By: #### U RNA, URTPRT, UMICAO, UEOS, UA #### [facility] [address] [place] [address] Stamp Classifier: Ronn Arias MD Abs.Imm.Granulocyte 0.10 k/uL Normal 0.00-0.30 [facility] Comment on above: Performed By: #### U RNA, URTPRT, UMICAO, UEOS, UA #### [facility] [employer] [address] [place] [address] Stamp Classifier: Ronn Arias MD Abs.Neutrophil (Seg) 14.48 k/uL High 1.50-8.10 [facility] Comment on above: Performed By: #### U RNA, URTPRT, UMICAO, UEOS, UA #### [facility] [address] [place] [address] Stamp Classifier: Ronn Arias MD Basophils/100 WBC (Bld) 0 % Normal 0-2 [facility] Comment on above: Performed By: #### U RNA, URTPRT, UMICAO, UEOS, UA #### [facility] [employer] [address] [place] [address] Stamp Classifier: Ronn Arias MD Eosinophils (Bld) [#/Vol] 0.06 10*3/uL Normal 0.00-0.44 [facility] Comment on above: Performed By: #### U RNA, URTPRT, UMICAO, UEOS, UA #### [facility] [address] [place] [address], [place] [address] Stamp Classifier: Ronn Arias MD Eosinophils/100 WBC (Bld) 0 % Low 1-4 [facility] Comment on above: Performed By: #### U RNA, URTPRT, UMICAO, UEOS, UA #### [facility] [address] [place] [address] Stamp Classifier: Ronn Arisa MD Immature granulocytes/100 WBC (Bld) 1 % High 0 [facility] Comment on above: Performed By: #### U RNA, URTPRT, UMICAO, UEOS, UA #### [facility] [address] [place] [address] Stamp Classifier: Ronn Arias MD Lymphocytes (Bld) [#/Vol] 0.87 10*3/uL Low 1.10-3.70 [facility] Comment on above: Performed By: #### U RNA, URTPRT, UMICAO, UEOS, UA #### [facility] [address] [place] [address] Stamp Classifier: Ronn Arias MD Lymphocytes/100 WBC (Bld) 5 % Low 24-43 [facility] Comment on above: Performed By: #### U RNA, URTPRT, UMICAO, UEOS, UA #### [facility] [employer] [address] [place] [address] Stamp Classifier: Ronn Arias MD Monocytes (Bld) [#/Vol] 1.28 10*3/uL High 0.10-1.20 [facility] Comment on above: Performed By: #### U RNA, URTPRT, UMICAO, UEOS, UA #### [facility] [address] [place] [address] Stamp Classifier: Ronn Arias MD Monocytes/100 WBC (Bld) 8 % Normal 3-12 [facility] Comment on above: Performed By: #### U RNA, URTPRT, UMICAO, UEOS, UA #### [facility] [address] [place] [address] Stamp Classifier: Ronn Arias MD Neutrophil (Seg) 86 % High 36-65 [facility] Comment on above: Performed By: #### U RNA, URTPRT, UMICAO, UEOS, UA #### [facility] [address] [place], [place] [phone] Stamp Classifier: Ronn Arias MD RBC morphology finding Nom (Bld) ANISOCYTOSIS PRESENT Normal [facility] Comment on above: Performed By: #### U RNA, URTPRT, UMICAO, UEOS, UA #### [facility] [address] [place], [place] [phone] Stamp Classifier: Ronn Arias MD Absolute Eos # 0.06 [facility] Absolute Immature Granulocyte 0.10 [facility] Absolute Lymph # 0.87 Low [facility] Absolute [place] # 1.28 High [facility] Basophils (Bld) [#/Vol] 0.03 10*3/uL [facility] Basophils/100 WBC (Bld) 0 % 0 - 2 % [facility] Eosinophils/100 WBC (Bld) 0 % Low 1 - 4 % [facility] Immature granulocytes/100 WBC (Bld) 1 % High 0 [facility] Lymphocytes/100 WBC (Bld) 5 % Low 24 - 43 % [facility] Monocytes/100 WBC (Bld) 8 % 3 - 12 % [facility] RBC (Bld) [#/Vol] ANISOCYTOSIS PRESENT [facility] Segmented neutrophils/100 WBC (Bld) 86 % High 36 - 65 % [facility] Segs Absolute 14.48 High [facility] Hemoglobin A1Con 01-01-2022 Glucose [Mass/Vol] 117 mg/dL Normal [facility] Comment on above: Result Comment: The ADA and AACC recommend providing the estimated average glucose result to permit better patient understanding of their HBA1c result. Performed By: #### U RNA, URTPRT, UMICAO, UEOS, UA #### [facility] [address] [place], [place] [phone] Stamp Classifier: Ronn Arias MD HbA1c (Bld) [Mass fraction] 5.7 % Normal 4.0-6.0 [facility] Comment on above: Performed By: #### U RNA, URTPRT, UMICAO, UEOS, UA #### [facility] [address] [place], [place] [phone] Stamp Classifier: Ronn Arias MD Glucose [Mass/Vol] 117 mg/dL [facility] [employer] Comment on above: The ADA and AACC rec ommend providing the estimated average glucose result to permit better patient understanding of their HBA1c result. HbA1c (Bld) [Mass fraction] 5.7 % 4 - 6 % [facility] [employer] [facility] [employer] Hepatic Function Panelon Albumin [Mass/Vol] 3.2 g/dL Low 3.5 - 5.2 g/dL [facility] [employer] Albumin/Globulin [Mass ratio] 1.3 {ratio} 1 - 2.5 [facility] [employer] ALP (Bld) [Catalytic activity/Vol] 98 U/L 40 - 129 U/L [facility] ALT [Catalytic activity/Vol] 202 U/L High 5 - 41 U/L [facility] AST [Catalytic activity/Vol] 117 U/L High NINF - 40 U/L [facility] [employer] Bilirubin [Mass/Vol] 4.4 mg/dL High 0.3 - 1.2 mg/dL [facility] [employer] Bilirubin, Indirect 0.3 mg/dL 0 - 1 mg/dL [facility] Bilirubin.indirect [Mass/Vol] 4.1 mg/dL High NINF - 0.31 mg/dL [facility] Free PSA/Total PSA [Mass fraction] 5.6 g/dL Low 6.4 - 8.3 g/dL [facility] Interpretation and review of laboratory results Abnormal [facility] Lactate Dehydrogenaseon 12-21 LDH [Catalytic activity/Vol] 214 U/L Normal 135-225 [facility] Comment on above: Performed By: #### U RNA, URTPRT, UMICAO, UEOS, UA #### [facility] [address] [place] [id number] Stamp Classifier: Ronn Arias MD LD 214 U/L 135 - 225 U/L [facility] Lactate, Sepsison 01-01-2022 Lactic Acid,Sep Wbld 1.2 mmol/L Normal 0.5-1.9 [facility] Comment on above: Performed By: #### U RNA, URTPRT, UMICAO, UEOS, UA #### [facility] [address] [place] [phone] Stamp Classifier: Ronn Arias MD Lactic Acid, Sepsis, Whole Blood 1.2 mmol/L 0.5 - 1.9 mmol/L [facility] Lactic Acid,Sep Wbld 1.3 mmol/L Normal 0.5-1.9 [facility] Comment on above: Performed By: #### U RNA, URTPRT, UMICAO, UEOS, UA #### [facility] [address] [place] [phone] Stamp Classifier: Ronn Arias MD Lactic Acid, Sepsis, Whole Blood 1.3 mmol/L 0.5 - 1.9 mmol/L [facility] Lactic Acid,Sep Wbld 0.9 mmol/L Normal 0.5-1.9 [facility] Comment on above: Performed By: #### U RNA, URTPRT, UMICAO, UEOS, UA #### [facility] [address] [place] [phone] Stamp Classifier: Ronn Arias MD Lactic Acid, Sepsis, Whole Blood 0.9 mmol/L 0.5 - 1.9 mmol/L [facility] Lactic Acid,Sep Wbld 1.3 mmol/L Normal 0.5-1.9 [facility] Comment on above: Performed By: #### U RNA, URTPRT, UMICAO, UEOS, UA #### [facility] [address] [place], [place] [phone] Stamp Classifier: Ronn Arias MD Lactic Acid, Sepsis, Whole Blood 1.3 mmol/L 0.5 - 1.9 mmol/L [facility] Lipaseon 01-01-2022 Lipase [Catalytic activity/Vol] 1918 U/L High 13-60 [facility] Comment on above: Performed By: #### U RNA, URTPRT, UMICAO, UEOS, UA #### [facility] [address] [place] [address] Stamp Classifier: Ronn Arias MD Lipase [Catalytic activity/Vol] 1918 U/L High 13 - 60 U/L [facility] Lipid Panelon 01-01-2022 Cholesterol [Mass/Vol] 103 mg/dL NINF - 200 mg/dL [facility] Comment on above: Cholesterol Guidelines: <200 Desirable 200-240 Borderline >240 Undesirable Cholesterol in HDL [Mass/Vol] 46 mg/dL 40 - PINF mg/dL [facility] Comment on above: HDL Guidelines: <40 Undesirable 40-59 Borderline >59 Desirable Cholesterol in LDL [Mass/Vol] 46 mg/dL 0 - 130 mg/dL [facility] Comment on above: LDL Guidelines: <100 Desirable 100-129 Near to/above Desirable 130-159 Borderline >159 Undesirable Direct (measured) LDL and calculated LDL are not interchangeable tests. Cholesterol.total/C holesterol in HDL [Mass ratio] 2.2 {ratio} NINF - 5 [facility] Triglyceride [Mass/Vol] 53 mg/dL NINF - 150 mg/dL [facility] Comment on above: Triglyceride Guidelines: <150 Desirable 150-199 Borderline 200-499 High >499 Very high Based on AHA Guidelines for fasting triglyceride, January 2012. [facility] Lipid Profileon 01-01-2022 Cholesterol [Mass/Vol] 103 mg/dL Normal <200 [facility] Comment on above: Result Comment: Cholesterol Guidelines: <200 Desirable 200-240 Borderline >240 Undesirable Performed By: #### U RNA, URTPRT, UMICAO, UEOS, UA #### [facility] [address] [place] [address] [phone] Stamp Classifier: Ronn Arias MD Cholesterol in HDL [Mass/Vol] 46 mg/dL Normal >40 [facility] Comment on above: Result Comment: HDL Guidelines: <40 Undesirable 40-59 Borderline >59 Desirable Performed By: #### U RNA, URTPRT, UMICAO, UEOS, UA #### [facility] [employer] [address] [place] [address] [phone] Stamp Classifier: Ronn Arias MD Cholesterol in LDL [Mass/Vol] 46 mg/dL Normal 0-130 [facility] Comment on above: Result Comment: LDL Guidelines: <100 Desirable 100-129 Near to/above Desirable 130-159 Borderline >159 Undesirable Direct (measured) LDL and calculated LDL are not interchangeable tests. Performed By: #### U RNA, URTPRT, UMICAO, UEOS, UA #### [facility] [employer] [address] [place] [address] [phone] Stamp Classifier: Ronn Arias MD Cholesterol.total/C holesterol in HDL [Mass ratio] 2.2 {ratio} Normal <5 [facility] Comment on above: Performed By: #### U RNA, URTPRT, UMICAO, UEOS, UA #### [facility] [employer] [address] [place] [address] [phone] Stamp Classifier: Ronn Arias MD Triglyceride [Mass/Vol] 53 mg/dL Normal <150 [facility] Comment on above: Result Comment: Triglyceride Guidelines: <150 Desirable 150-199 Borderline 200-499 High >499 Very high Based on AHA Guidelines for fasting triglyceride, January 2012. Performed By: #### U RNA, URTPRT, UMICAO, UEOS, UA #### [facility] [employer] [address] [place] [phone] Stamp Classifier: Ronn Arias MD Liver Profileon 01-01-2022 Albumin [Mass/Vol] 3.2 g/dL Low 3.5-5.2 [facility] Comment on above: Performed By: #### U RNA, URTPRT, UMICAO, UEOS, UA #### [facility] [address] [place] [phone] Stamp Classifier: Ronn Arias MD Albumin/Glob Ratio 1.3 Normal 1.0-2.5 [facility] Comment on above: Performed By: #### U RNA, URTPRT, UMICAO, UEOS, UA #### [facility] [employer] [address] [place] [phone] Stamp Classifier: Ronn Arias MD Alkaline Phos 98 U/L Normal 40-129 [facility] Comment on above: Performed By: #### U RNA, URTPRT, UMICAO, UEOS, UA #### [facility] [employer] [address] [place] [phone] Stamp Classifier: Ronn Arias MD ALT [Catalytic activity/Vol] 202 U/L High 5-41 [facility] Comment on above: Performed By: #### U RNA, URTPRT, UMICAO, UEOS, UA #### [facility] [employer] [address] [place] [phone] Stamp Classifier: Ronn Arias MD AST [Catalytic activity/Vol] 117 U/L High <40 [facility] Comment on above: Performed By: #### U RNA, URTPRT, UMICAO, UEOS, UA #### [facility] [employer] [address] [place] [phone] Stamp Classifier: Ronn Arias MD Bilirubin [Mass/Vol] 4.4 mg/dL High 0.3-1.2 [facility] Comment on above: Performed By: #### U RNA, URTPRT, UMICAO, UEOS, UA #### [facility] [address] [place] [address] Stamp Classifier: Ronn Arias MD Bilirubin, Indirect 0.3 mg/dL Normal 0.00-1.00 [facility] Comment on above: Performed By: #### U RNA, URTPRT, UMICAO, UEOS, UA #### [facility] [address] [place] [address] Stamp Classifier: Ronn Arias MD Bilirubin.indirect [Mass/Vol] 4.1 mg/dL High <0.31 [facility] Comment on above: Performed By: #### U RNA, URTPRT, UMICAO, UEOS, UA #### [facility] [address] [place] [address] Stamp Classifier: Ronn Arias MD Protein [Mass/Vol] 5.6 g/dL Low 6.4-8.3 [facility] Comment on above: Performed By: #### U RNA, URTPRT, UMICAO, UEOS, UA #### [facility] [address] [place] [address] Stamp Classifier: Ronn Arias MD MRI ABDOMEN WO CONTRAST MRCP on 01-01-2022 MRI ABDOMEN WO CONTRAST MRCP EXAMINATION: MRI OF THE ABDOMEN WITHOUT CONTRAST AND MRCP 01/01/2022 11:40 am TECHNIQUE: Multiplanar multisequence MRI of the abdomen was performed without the administration of intravenous contrast. After initial T2 axial and coronal images, thick slab, thin slab and 3D coronal MRCP sequences were obtained without the administration of intravenous contrast. MIP images are provided for review. COMPARISON: None HISTORY: ORDERING SYSTEM PROVIDED HISTORY: Assess for Acute Pancreatitis and possible choledocholithiasis TECHNOLOGIST PROVIDED HISTORY: Assess for Acute Pancreatitis and possible choledocholithiasis Reason for Exam: Assess for Acute Pancreatitis and possible choledocholithiasis FINDINGS: LOWER CHEST: Linear opacities in the lung bases. Small hiatal hernia. LIVER: The liver is normal in morphology. No evidence for steatosis. No suspicious liver lesion identified.Subcentimeter T2 hyperintense liver lesions are noted, consistent with cysts. GALLBLADDER/BILE DUCTS: Layering sludge and small stones. No wall thickening or surrounding inflammatory change. No intrahepatic nor extrahepatic biliary dilation. PANCREAS: Mild induration of the peripancreatic fat. No focal signal abnormality identified within the pancreatic parenchyma or duct dilatation. SPLEEN: No significant findings. ADRENAL GLANDS: Normal. KIDNEYS: No significant findings. GI/BOWEL: The visualized bowel is normal in caliber. Small duodenal diverticulum. PERITONEUM/RETROPERITONEUM: No abdominal lymphadenopathy. No free intraperitoneal fluid. VESSELS: The aorta is normal in caliber. SOFT TISSUES/BONES: No suspicious signal abnormality identified. *Unless otherwise specified, incidental findings do not require dedicated imaging follow-up. IMPRESSION: 1. Christen pancreatic inflammation suggestive of acute pancreatitis. No pancreatic duct dilatation. 2. Cholelithiasis without evidence for acute cholecystitis, biliary dilatation or choledocholithiasis. Interpreted by: Aliya Salgado MD Signed by: Aliya Salgado MD 01/01/22 Final result Normal [facility] 1. Christen pancreatic inflammation suggestive of acute pancreatitis. No pancreatic duct dilatation. 2. Cholelithiasis without evidence for acute cholecystitis, biliary dilatation or choledocholithiasis. PN RIS CONSOLIDATED EXAMINATION: MRI OF THE ABDOMEN WITHOUT CONTRAST AND MRCP 01/01/2022 11:40 am TECHNIQUE: Multiplanar multisequence MRI of the abdomen was performed without the administration of intravenous contrast. After initial T2 axial and coronal images, thick slab, thin slab and 3D coronal MRCP sequences were obtained without the administration of intravenous contrast. MIP images are provided for review. COMPARISON: None HISTORY: ORDERING SYSTEM PROVIDED HISTORY: Assess for Acute Pancreatitis and possible choledocholithiasis TECHNOLOGIST PROVIDED HISTORY: Assess for Acute Pancreatitis and possible choledocholithiasis Reason for Exam: Assess for Acute Pancreatitis and possible choledocholithiasis FINDINGS: LOWER CHEST: Linear opacities in the lung bases. Small hiatal hernia. LIVER: The liver is normal in morphology. No evidence for steatosis. No suspicious liver lesion identified.Subcentimeter T2 hyperintense liver lesions are noted, consistent with cysts. GALLBLADDER/BILE DUCTS: Layering sludge and small stones. No wall thickening or surrounding inflammatory change. No intrahepatic nor extrahepatic biliary dilation. PANCREAS: Mild induration of the peripancreatic fat. No focal signal abnormality identified within the pancreatic parenchyma or duct dilatation. SPLEEN: No significant findings. ADRENAL GLANDS: Normal. KIDNEYS: No significant findings. GI/BOWEL: The visualized bowel is normal in caliber. Small duodenal diverticulum. PERITONEUM/RETROPERITONEUM: No abdominal lymphadenopathy. No free intraperitoneal fluid. VESSELS: The aorta is normal in caliber. SOFT TISSUES/BONES: No suspicious signal abnormality identified. *Unless otherwise specified, incidental findings do not require dedicated imaging follow-up. [facility] [place] [facility] Aliya Mahajan MD - 01/01/2022 EXAMINATION: MRI OF THE ABDOMEN WITHOUT CONTRAST AND MRCP 01/01/2022 11:40 am TECHNIQUE: Multiplanar multisequence MRI of the abdomen was performed without the administration of intravenous contrast. After initial T2 axial and coronal images, thick slab, thin slab and 3D coronal MRCP sequences were obtained without the administration of intravenous contrast. MIP images are provided for review. COMPARISON: None HISTORY: ORDERING SYSTEM PROVIDED HISTORY: Assess for Acute Pancreatitis and possible choledocholithiasis TECHNOLOGIST PROVIDED HISTORY: Assess for Acute Pancreatitis and possible choledocholithiasis Reason for Exam: Assess for Acute Pancreatitis and possible choledocholithiasis FINDINGS: LOWER CHEST: Linear opacities in the lung bases. Small hiatal hernia. LIVER: The liver is normal in morphology. No evidence for steatosis. No suspicious liver lesion identified.Subcentimeter T2 hyperintense liver lesions are noted, consistent with cysts. GALLBLADDER/BILE DUCTS: Layering sludge and small stones. No wall thickening or surrounding inflammatory change. No intrahepatic nor extrahepatic biliary dilation. PANCREAS: Mild induration of the peripancreatic fat. No focal signal abnormality identified within the pancreatic parenchyma or duct dilatation. SPLEEN: No significant findings. ADRENAL GLANDS: Normal. KIDNEYS: No significant findings. GI/BOWEL: The visualized bowel is normal in caliber. Small duodenal diverticulum. PERITONEUM/RETROPERITONEUM: No abdominal lymphadenopathy. No free intraperitoneal fluid. VESSELS: The aorta is normal in caliber. SOFT TISSUES/BONES: No suspicious signal abnormality identified. *Unless otherwise specified, incidental findings do not require dedicated imaging follow-up. IMPRESSION: 1. Christen pancreatic inflammation suggestive of acute pancreatitis. No pancreatic duct dilatation. 2. Cholelithiasis without evidence for acute cholecystitis, biliary dilatation or choledocholithiasis. [facility] Work Phone: Radiology Study observation (narrative) [facility] [employer] Phone: MRI ABDOMEN WO CONTRAST MRCP Ordered By: Aliya Salgado on 01-01-2022 [facility]: Magnesiumon 01-01-2022 Magnesium [Mass/Vol] 1.7 mg/dL Normal 1.6-2.6 [facility] Comment on above: Performed By: #### U RNA, URTPRT, UMICAO, UEOS, UA #### [facility] [address] [place], [place] [phone] Stamp Classifier: Ronn Arias MD Magnesium [Mass/Vol] 1.7 mg/dL 1.6 - 2.6 mg/dL [facility] Magnesium [Mass/Vol] 1.7 mg/dL Normal 1.6-2.6 [facility] Comment on above: Performed By: #### U RNA, URTPRT, UMICAO, UEOS, UA #### [facility] [address] [place], [place] [phone] Stamp Classifier: Ronn Arias MD Magnesium [Mass/Vol] 1.7 mg/dL 1.6 - 2.6 mg/dL [facility] No Panel Informationon 01-01 Interpretation and review of laboratory results Abnormal [facility] Interpretation and review of laboratory results Abnormal [facility] PTon 01-01-2022 INR Coag (PPP) [Relative time] 1.2 {INR} Normal [facility] Comment on above: Result Comment: Therapeutic Range: Moderate Anticoagulant Intensity: INR = 2.0-3.0 High Anticoagulant Intensity: INR = 2.5-3.5 Performed By: #### U RNA, URTPRT, UMICAO, UEOS, UA #### [facility] [address] [place], [place] [phone] Stamp Classifier: Ronn Arias MD PT Coag (PPP) [Time] 12.7 s High 9.1-12.3 [facility] Comment on above: Performed By: #### U RNA, URTPRT, UMICAO, UEOS, UA #### [facility] [address] [place], [place] [phone] Stamp Classifier: Ronn Arias MD Phosphoruson 01-01-2022 Phosphate [Mass/Vol] 3.0 mg/dL 2.5 - 4.5 mg/dL [facility] Phosphorus, Inorg.on 022 Phosphorus, Inorg. 3.0 mg/dL Normal 2.5-4.5 [facility] Comment on above: Performed By: #### U RNA, URTPRT, UMICAO, UEOS, UA #### [facility] [address] [place], [place] [phone] Stamp Classifier: Ronn Arias MD Procalcitoninon 01-01-2022 Procalcitonin 67.66 ng/mL High <0.09 [facility] Comment on above: Result Comment: Suspected Sepsis: <0.50 ng/mL Low likelihood of sepsis. 0.50-2.00 ng/mL Increased likelihood of sepsis. Antibiotics encouraged. >2.00 ng/mL High risk of sepsis/shock. Antibiotics strongly encouraged. Suspected Lower Resp Tract Infections: <0.24 ng/mL Low likelihood of bacterial infection. >0.24 ng/mL Increased likelihood of bacterial infection. Antibiotics encouraged. With successful antibiotic therapy, PCT levels should decrease rapidly. (Half-life of 24 to 36 hours.) Procalcitonin values from samples collected within the first 6 hours of systemic infection may still be low. Retesting may be indicated. Values from day 1 and day 4 can be entered into the Change in Procalcitonin Calculator (www.fhawij-gjp-cvcrccaokx.com) to determine the patient's Mortality Risk Prognosis In healthy neonates, plasma Procalcitonin (PCT) concentrations increase gradually after , reaching peak values at about 24 hours of age then decrease to normal values below 0.5 ng/mL by 48-72 hours of age. Performed By: #### U RNA, URTPRT, UMICAO, UEOS, UA #### [facility] [address] [place] [address] Stamp Classifier: Ronn Arias MD Interpretation and review of laboratory results Abnormal [facility] Procalcitonin 67.66 ng/mL High NINF - 0.09 ng/mL [facility] Comment on above: Suspected Sepsis: <0.50 ng/mL Low likelihood of sepsis. 0.50-2.00 ng/mL Increased likelihood of sepsis. Antibiotics encouraged. >2.00 ng/mL High risk of sepsis/shock. Antibiotics strongly encouraged. Suspected Lower Resp Tract Infections: <0.24 ng/mL Low likelihood of bacterial infection. >0.24 ng/mL Increased likelihood of bacterial infection. Antibiotics encouraged. With successful antibiotic therapy, PCT levels should decrease rapidly. (Half-life of 24 to 36 hours.) Procalcitonin values from samples collected within the first 6 hours of systemic infection may still be low. Retesting may be indicated. Values from day 1 and day 4 can be entered into the Change in Procalcitonin Calculator (www.eabgdc-ckn-ebhexbedio.Tugg) to determine the patient's Mortality Risk Prognosis In healthy neonates, plasma Procalcitonin (PCT) concentrations increase gradually after , reaching peak values at about 24 hours of age then decrease to normal values below 0.5 ng/mL by 48-72 hours of age. Protein, urine, randomon Protein (U) [Mass/Vol] 59 mg/dL [facility] Comment on above: No normal range esta blished. [facility] Protime-INRon 01-01-2022 INR Coag (Bld) [Relative time] 1.2 {INR} [facility] Comment on above: Therapeutic Range: Moderate Anticoagulant Intensity: INR = 2.0-3.0 High Anticoagulant Intensity: INR = 2.5-3.5 Interpretation and review of laboratory results Abnormal [facility] PT Coag (PPP) [Time] 12.7 s High [facility] Sodium, Random Uron 01-02-20 Sodium (U) [Moles/Vol] 37 mmol/L Normal [facility] Comment on above: Result Comment: No n ormal range established. Performed By: #### U RNA, URTPRT, UMICAO, UEOS, UA #### [facility] [address] [place], [place] [phone] Stamp Classifier: Ronn Arias MD Sodium, urine, randomon 12-21 Sodium (U) [Moles/Vol] 37 mmol/L [facility] Comment on above: No normal range esta blished. [facility] Triglycerideon 01-01-2022 Triglyceride [Mass/Vol] 58 mg/dL NINF - 150 mg/dL [facility] Comment on above: Triglyceride Guidelines: <150 Desirable 150-199 Borderline 200-499 High >499 Very high Based on AHA Guidelines for fasting triglyceride, January 2012. Triglycerideson 01-01-2022 Triglyceride [Mass/Vol] 58 mg/dL Normal <150 [facility] Comment on above: Result Comment: Triglyceride Guidelines: <150 Desirable 150-199 Borderline 200-499 High >499 Very high Based on AHA Guidelines for fasting triglyceride, January 2012. Performed By: #### U RNA, URTPRT, UMICAO, UEOS, UA #### [facility] [address] [place], [place] [phone] Stamp Classifier: Ronn Arias MD Troponinon 01-01-2022 Troponin, High Sens 19 ng/L Normal 0-22 [facility] Comment on above: Result Comment: High Sensitivity Troponin values cannot be compared with other Troponin methodologies. Patients with high levels of Biotin oral intake (i.e >5mg/day) may have falsely decreased Troponin levels. Samples collected within 8 hours of biotin intake may require additional information for diagnosis. Performed By: #### U RNA, URTPRT, UMICAO, UEOS, UA #### [facility] [address] [place] [address] Stamp Classifier: Ronn Arias MD Troponin, High Sensitivity 19 ng/L 0 - 22 ng/L [facility] Comment on above: High Sensitivity Troponin values cannot be compared with other Troponin methodologies. Patients with high levels of Biotin oral intake (i.e >5mg/day) may have falsely decreased Troponin levels. Samples collected within 8 hours of biotin intake may require additional information for diagnosis. [facility] Troponin, High Sens 17 ng/L Normal 0-22 [facility] Comment on above: Result Comment: High Sensitivity Troponin values cannot be compared with other Troponin methodologies. Patients with high levels of Biotin oral intake (i.e >5mg/day) may have falsely decreased Troponin levels. Samples collected within 8 hours of biotin intake may require additional information for diagnosis. Performed By: #### U RNA, URTPRT, UMICAO, UEOS, UA #### [facility] [address] [place] [address] Stamp Classifier: Ronn Arias MD Troponin, High Sensitivity 17 ng/L 0 - 22 ng/L [facility] Comment on above: High Sensitivity Troponin values cannot be compared with other Troponin methodologies. Patients with high levels of Biotin oral intake (i.e >5mg/day) may have falsely decreased Troponin levels. Samples collected within 8 hours of biotin intake may require additional information for diagnosis. [facility] Troponin, High Sens 18 ng/L Normal 0-22 [facility] Comment on above: Result Comment: High Sensitivity Troponin values cannot be compared with other Troponin methodologies. Patients with high levels of Biotin oral intake (i.e >5mg/day) may have falsely decreased Troponin levels. Samples collected within 8 hours of biotin intake may require additional information for diagnosis. Performed By: #### U RNA, URTPRT, UMICAO, UEOS, UA #### [facility] [address] [place] [address] Stamp Classifier: Ronn Arias MD Troponin, High Sens 18 ng/L Normal 0-22 [facility] Comment on above: Result Comment: High Sensitivity Troponin values cannot be compared with other Troponin methodologies. Patients with high levels of Biotin oral intake (i.e >5mg/day) may have falsely decreased Troponin levels. Samples collected within 8 hours of biotin intake may require additional information for diagnosis. Performed By: #### U RNA, URTPRT, UMICAO UEOS, UA #### [facility] [address] [place] [address] Stamp Classifier: Ronn Arias MD Troponin, High Sensitivity 18 ng/L 0 - 22 ng/L [facility] Comment on above: High Sensitivity Troponin values cannot be compared with other Troponin methodologies. Patients with high levels of Biotin oral intake (i.e >5mg/day) may have falsely decreased Troponin levels. Samples collected within 8 hours of biotin intake may require additional information for diagnosis. [facility] [employer] Troponin, High Sensitivity 18 ng/L 0 - 22 ng/L [facility] Comment on above: High Sensitivity Troponin values cannot be compared with other Troponin methodologies. Patients with high levels of Biotin oral intake (i.e >5mg/day) may have falsely decreased Troponin levels. Samples collected within 8 hours of biotin intake may require additional information for diagnosis. Troponin, High Sens 18 ng/L Normal 0-22 [facility] Comment on above: Result Comment: High Sensitivity Troponin values cannot be compared with other Troponin methodologies. Patients with high levels of Biotin oral intake (i.e >5mg/day) may have falsely decreased Troponin levels. Samples collected within 8 hours of biotin intake may require additional information for diagnosis. Performed By: #### U RNA, URTPRT, UMICAO, UEOS, UA #### [facility] [address] [place] [address] Stamp Classifier: Ronn Arias MD Troponin, High Sens 17 ng/L Normal 0-22 [facility] [facility] Comment on above: Result Comment: High Sensitivity Troponin values cannot be compared with other Troponin methodologies. Patients with high levels of Biotin oral intake (i.e >5mg/day) may have falsely decreased Troponin levels. Samples collected within 8 hours of biotin intake may require additional information for diagnosis. Performed By: #### U RNA, URTPRT, UMICAO, UEOS, UA #### [facility] [employer] [address] [place] [address] Stamp Classifier: Ronn Arias MD Troponin, High Sensitivity 18 ng/L 0 - 22 ng/L [facility] Comment on above: High Sensitivity Troponin values cannot be compared with other Troponin methodologies. Patients with high levels of Biotin oral intake (i.e >5mg/day) may have falsely decreased Troponin levels. Samples collected within 8 hours of biotin intake may require additional information for diagnosis. [facility] Troponin, High Sens 15 ng/L Normal 0-22 [facility] Comment on above: Result Comment: High Sensitivity Troponin values cannot be compared with other Troponin methodologies. Patients with high levels of Biotin oral intake (i.e >5mg/day) may have falsely decreased Troponin levels. Samples collected within 8 hours of biotin intake may require additional information for diagnosis. Performed By: #### U RNA, URTPRT, UMICAO, UEOS, UA #### [employer] [address] [place] [address] Stamp Classifier: Ronn Arias MD Troponin, High Sensitivity 17 ng/L 0 - 22 ng/L [facility] Comment on above: High Sensitivity Troponin values cannot be compared with other Troponin methodologies. Patients with high levels of Biotin oral intake (i.e >5mg/day) may have falsely decreased Troponin levels. Samples collected within 8 hours of biotin intake may require additional information for diagnosis. [facility] Troponin, High Sensitivity 15 ng/L 0 - 22 ng/L [facility] Comment on above: High Sensitivity Troponin values cannot be compared with other Troponin methodologies. Patients with high levels of Biotin oral intake (i.e >5mg/day) may have falsely decreased Troponin levels. Samples collected within 8 hours of biotin intake may require additional information for diagnosis. [facility] UA w/Reflex Cultureon 2021 Bilirubin, SemiQt,Ur MOD Abnormal NEG [facility] Comment on above: Performed By: #### U RNA, URTPRT, UMICAO, UEOS, UA #### [address] [place], [place] [id number] Stamp Classifier: Ronn Arias MD Blood, Urine SMALL Abnormal NEG [facility] Comment on above: Performed By: #### U RNA, URTPRT, UMICAO, UEOS, UA #### [facility] [address] [place] [address] Stamp Classifier: Ronn Arias MD Clarity (U) Turbid Abnormal CLEAR [facility] Comment on above: Performed By: #### U RNA, URTPRT, UMICAO, UEOS, UA #### [facility] [address] [place] [address] Stamp Classifier: Ronn Arias MD Color (U) Dark Yellow Abnormal YEL [facility] Comment on above: Performed By: #### U RNA, URTPRT, UMICAO, UEOS, UA #### [address] [address] Stamp Classifier: Ronn Arias MD Glucose Ql (U) Negative Normal NEG [facility] Comment on above: Performed By: #### U RNA, URTPRT, UMICAO, UEOS, UA #### [address] [address] Stamp Classifier: Ronn Arias MD Ketones Ql (U) Negative Normal NEG [facility] Comment on above: Performed By: #### U RNA, URTPRT, UMICAO, UEOS, UA #### [address] [address] Stamp Classifier: Ronn Arias MD Leukocyte esterase Test strip Ql (U) Negative Normal NEG [facility] Comment on above: Performed By: #### U RNA, URTPRT, UMICAO, UEOS, UA #### [facility] [address] [place] [address] Stamp Classifier: Ronn Arias MD Nitrite,Ur Negative Normal NEG [facility] Comment on above: Performed By: #### U RNA, URTPRT, UMICAO, UEOS, UA #### [facility] [employer] [facility] [place] [address] Stamp Classifier: Ronn Arias MD PH,Ur 5.0 Normal 5.0-8.0 [facility] Comment on above: Performed By: #### U RNA, URTPRT, UMICAO, UEOS, UA #### [facility] [employer] [address] [place] [address] Stamp Classifier: Ronn Arias MD Protein Ql (U) 1+ Abnormal NEG [facility] Comment on above: Performed By: #### U RNA, URTPRT, UMICAO, UEOS, UA #### [facility] [address] [place] [address] Stamp Classifier: Ronn Arias MD Spec. [place],Ur 1.013 Normal 1.005-1.03 0 [facility] Comment on above: Performed By: #### U RNA, URTPRT, UMICAO, UEOS, UA #### [facility] [employer] [address] [place] [address] Stamp Classifier: Ronn Arias MD Urobilinogen,Ur Normal Normal NORM [facility] Comment on above: Performed By: #### U RNA, URTPRT, UMICAO, UEOS, UA #### [facility] [employer] [address] [place] [address] Stamp Classifier: Ronn Arias MD Urinalysis with Reflex to Cu ltureon 01-01-2022 Bilirubin Urine MOD Abnormal NEGATIVE [facility] Color, UA Dark Yellow Abnormal Yellow [facility] Glucose, Ur Negative NEGATIVE [facility] Interpretation and review of laboratory results Abnormal [facility] Ketones Ql (U) Negative NEGATIVE [facility] Leukocyte esterase Test strip Ql (U) Negative NEGATIVE [facility] Nitrite, Urine Negative NEGATIVE [facility] pH, UA 5.0 5 - 8 [facility] Protein, UA 1+ Abnormal NEGATIVE [facility] Specific [place], UA 1.013 1.005 - 1.03 [facility] Turbidity UA Turbid Abnormal Clear [facility] Urine Hgb SMALL Abnormal NEGATIVE [facility] Urobilinogen, Urine Normal Normal [facility] Urinalysis, Microon 01-02-20 22 Casts UA 20 TO 50 [facility] Casts UA COARSELY GRANULAR [facility] Epithelial Cells UA 5 TO 10 [facility] RBC, UA 10 TO 20 [facility] WBC, UA 10 TO 20 [facility] Urinalysis,Microon 2 Casts 20 TO 50 Normal 0-2 [facility] Comment on above: Result Comment: COAR ASHLEY LEDESMA Performed By: #### U RNA, URTPRT, UMICAO, UEOS, UA #### [facility] [address] [place] [address] Stamp Classifier: Ronn Arias MD Epithelial cells LM Ql (Urine sed) 5 TO 10 Normal 05 [facility] Comment on above: Performed By: #### U RNA, URTPRT, UMICAO, UEOS, UA #### [facility] [address] [place] [address] Stamp Classifier: Ronn Arias MD Urine RBC's 10 TO 20 Normal 02 [facility] Comment on above: Performed By: #### U RNA, URTPRT, UMICAO, UEOS, UA #### [facility] [address] [place] [address] Stamp Classifier: Ronn Arias MD Urine WBC's 10 TO [address] Comment on above: Performed By: #### U RNA, URTPRT, UMICAO, UEOS, UA #### [facility] [address] [place] [address] Stamp Classifier: Ronn Arias MD CBC AUTO DIFFon 12-31-2021 BASO # 0.1 103/ul Normal 0.0-0.1 [facility] Comment on above: Performed By: #### H STROPN #### [facility] [address] [address] [address] Kulwant Brennan Basophils/100 WBC (Bld) 0.2 % Normal 0.2-2.0 [facility] Comment on above: Performed By: #### H STROPN #### [facility] [address] [address] [address] Kulwant Brennan EO # 0.0 103/ul Normal 0.0-0.7 [facility] Comment on above: Performed By: #### H STROPN #### [facility] [address] [place] [address] Dr. Kulwant Brennan Eosinophils/100 WBC (Bld) 0.0 % Critically low 0.9-7.0 [facility] Comment on above: Performed By: #### H STROPN #### [facility] [address] [address] [address] Kulwant Brennan Erythrocyte distribution width (RBC) [Ratio] 14.4 % Normal 11.0-15.0 [facility] Comment on above: Performed By: #### H STROPN #### [facility] [address] [place] [address] Dr. Kulwant Brennan Hematocrit (Bld) [Volume fraction] 37.9 % Critically low 42.0-54.0 [facility] Comment on above: Performed By: #### H STROPN #### [facility] [address] [address] [address] Kulwant Brennan Hemoglobin (Bld) [Mass/Vol] 12.2 g/dL Critically low 14.0-18.0 [facility] Comment on above: Performed By: #### H STROPN #### [facility] [address] [place] [address] Dr. Kulwant Brennan IG # 0.16 10e3/ul Critically high 0.00-0.03 [facility] Comment on above: Performed By: #### H STROPN #### [facility] [address] [address] [address] Kulwant Brennan IG % 0.6 % Critically high 0.0-0.5 [facility] Comment on above: Performed By: #### H STROPN #### [facility] [address] [address] [address] Kulwant Brennan LYMPH # 0.7 103/ul Critically low 1.2-3.8 [facility] Comment on above: Performed By: #### H STROPN #### [facility] [address] [address] [address] Kulwant Brennan Lymphocytes/100 WBC (Bld) 2.9 % Critically low 20.5-60.0 [facility] Comment on above: Performed By: #### H STROPN #### [facility] [address] [address] [address] Kulwant Brennan MANUAL DIFF REQ NO Normal [facility] Comment on above: Performed By: #### H STROPN #### [facility] [address] [address] [address] Kulwant Brennan MCH (RBC) [Entitic mass] 27.7 pg Normal 25.9-34.0 [facility] Comment on above: Performed By: #### H STROPN #### [facility] [address] [address] [address] Kulwant Brennan MCHC (RBC) [Mass/Vol] 32.2 g/dL Normal 29.9-35.2 [facility] Comment on above: Performed By: #### H STROPN #### [facility] [address] [address] [address] Kulwant Brennan MCV (RBC) [Entitic vol] 86.1 fL Normal 80.0-94.0 [facility] Comment on above: Performed By: #### H STROPN #### [facility] [address] [address] [address] Kulwant Brennan MONO # 1.6 103/ul Critically high 0.3-0.8 [facility] Comment on above: Performed By: #### H STROPN #### [facility] [address] [address] [address] Kulwant Brennan Monocytes/100 WBC (Bld) 6.4 % Normal 1.7-12.0 [facility] Comment on above: Performed By: #### H STROPN #### [facility] [address] [address] [address] Kulwant Brennan NEUT # 22.8 103/ul Critically high 1.4-6.5 [facility] Comment on above: Performed By: #### H STROPN #### [facility] [address] [address] [address] Kulwant Brennan Neutrophils/100 WBC (Bld) 89.9 % Critically high 43.0-75.0 [facility] Comment on above: Performed By: #### H STROPN #### [facility] [address] [place] [address] Dr. Kulwant Brennan Platelet mean volume (Bld) [Entitic vol] 10.0 fL Normal 9.5-13.5 [facility] Comment on above: Performed By: #### H STROPN #### [facility] [address] [place] [address] Dr. Kulwant Brennan PLT 211 103/ul Normal 150-450 [facility] Comment on above: Performed By: #### H STROPN #### [facility] [address] [place] [address] Dr. Kulwant Brennan RBC 4.40 106/ul Critically low 4.70-6.10 [facility] Comment on above: Performed By: #### H STROPN #### [facility] [address] [place] [address] Dr. Kulwant Brennan WBC 25.3 103/ul Critically high 4.0-11.0 [facility] Comment on above: Performed By: #### H STROPN #### [facility] [address] [place] [address] Dr. Kulwant Brennan CULTURE BLOODon 12-31-2021 Microscopic examination of blood, culture Culture Observations: NO GROWTH AT 5 DAYS. Normal [facility] Comment on above: Performed By: #### B LDCX2 ####[facility] [address] [address]Dr. Kulwant Brennan Performed By: #### B LDCX1 ####[facility] [address] [id number]. Kulwant Brennan CULTURE URINEon 12-31-2021 CULTURE URINE Culture Observations : MODERATE GROWTH OF MIXED SKIN MITA. NO POTENTIAL PATHOGENS SEEN. Normal [facility] Comment on above: Performed By: #### U RCX ####[facility] [address] [place], [place] [address]Dr. Kulwant Brennan Covid-19 PCR (CVDTBH)on 12-21 SARS-CoV-2 (COVID-19) RNA MIKE+probe Ql (Unsp spec) Not detected Normal NOT DETECTED [facility] Comment on above: Result Comment: When diagnostic testing is negative, the possibility of a false negative should be considered in the context of a patient's recent exposures and the presence of clinical signs and symptoms consistent with SARS-CoV-2. This test is not yet approved or cleared by the [place] FDA. When there are no FDA-approved or cleared tests available, and other criteria are met, FDA can make tests available under an emergency access mechanism called an Emergency Use Authorization (EUA). The EUA for this test is supported by the [employer] of Health and Human Service's declaration that circumstances exist to justify the emergency use of in vitro diagnostics for the detection and/or diagnosis of the virus that causes COVID-19. This EUA will remain in effect for the duration of the COVID-19 declaration justifying emergency of IVDs, unless it is terminated or revoked by the FDA (after which the test may no longer be used). Performed By: #### C VDTBH ####[facility] [address] [address]Dr. Kulwant Brennan ER URINE PROFILEon 2 Bilirubin Ql (U) MODERATE Abnormal NEGATIVE [facility] Comment on above: Performed By: #### E RUR UMJOSESITORO ####[facility] [address] [id number]. Kulwant Brennan Clarity (U) CLEAR Normal CLEAR [facility] Comment on above: Performed By: #### Lilly JHAVERI UMICRO ####[facility] [address] [address]Dr. Kulwant Brennan Color (U) DK. ORANGE Abnormal YELLOW [facility] Comment on above: Performed By: #### Lilly JHAVERI UMICRO ####[facility] [address] [place], [place] [address]Dr. Kulwant Brennan ERUAHD A micrscopic examina tion will be performed if indicated. Normal [facility] Comment on above: Performed By: #### Lilly JHAVERI UMICRO ####[facility] [address] [place], [place] [address]Dr. Kulwant Brennan Glucose Ql (U) Negative Normal NEGATIVE [facility] Comment on above: Performed By: #### Lilly JHAVERI UMICRO ####[facility] [address] [place], [place] [address]Dr. Kulwant Brennan Hemoglobin Ql (U) SMALL Abnormal NEGATIVE [facility] Comment on above: Performed By: #### Lilly JHAVERI UMICRO ####[facility] [address] [place], [place] [address]Dr. Kulwant Brennan Ketones Ql (U) Negative Normal NEGATIVE [facility] Comment on above: Performed By: #### Lilly JHAVERI UMICRO ####[facility] [address] [place], [place] [address]Dr. Kulwant Brennan LEUKOCYTES Negative Normal NEGATIVE [facility] Comment on above: Performed By: #### Lilly JHAVERI UMICRO ####[facility] [address] [place], [place] [address]Dr. Kulwant Brennan Nitrite Ql (U) Positive Abnormal NEGATIVE [facility] Comment on above: Performed By: #### Lilly JHAVERI UMICRO ####[facility] [address] [place], [place] [address]Dr. Kulwant Brennan pH (U) 5.5 [pH] Normal 5-9 [facility] Comment on above: Performed By: #### MICHELLE VARELARO ####[facility] [address] [address]Dr. Kulwant Brennan Protein (U) [Mass/Vol] 100 mg/dL Abnormal NEGATIVE/ TRACE [facility] Comment on above: Performed By: #### SERGEY VARELAICRO ####[facility] [address] [address]Dr. Kulwant Brennan SPEC GRAVITY 1.020 Normal 1.005-<=1. 025 [facility] Comment on above: Performed By: #### MICHELLE VARELARO ####[facility] [address] [address]Dr. Kulwant Brennan UR MICRO IND INDICATED Normal [facility] Comment on above: Performed By: #### MICHELLE VARELARO ####[facility] [address] [address]Dr. Kulwnat Brennan Urobilinogen Qn (U) 1.0 {Luis'U}/dL Normal 0.2 - 1. 0 [facility] Comment on above: Performed By: #### MICHELLE VARELARO ####[facility] [address] [place], [place] [address]DrAmarjit Brennan LACTATE/LACTIC ACIDon 2021 Lactate [Moles/Vol] 1.6 mmol/L Normal 0.4-1.9 [facility] Comment on above: Performed By: #### L ACT #### [facility] [address] [place] [address] Dr. Kulwant Brennan Lactate [Moles/Vol] 2.4 mmol/L Critically high 0.4-1.9 [facility] Comment on above: Performed By: #### L ACT ####[facility] [address] [place], [place] [address]DrAmarjit Brennan LIPASEon 12-31-2021 Lipase [Catalytic activity/Vol] 6610.0 U/L Critically high 73.0-393.0 [facility] Comment on above: Performed By: #### L ACT #### [facility] [address] [place] [address] Dr. Kulwant Brennan PROF 14(COMP METB)on 022 Albumin [Mass/Vol] 3.3 g/dL Critically low 3.4-5.0 [facility] Comment on above: Performed By: #### L ACT #### [facility] [address] [address] [address] Kulwant Brennan Albumin/Globulin [Mass ratio] 0.9 {ratio} Normal [facility] Comment on above: Performed By: #### L ACT #### [facility] [address] [address] [address] Kulwant Brennan ALP [Catalytic activity/Vol] 124 U/L Critically high 46-116 [facility] Comment on above: Performed By: #### L ACT #### [facility] [address] [place] [address] Dr. Kulwant Brennan ALT [Catalytic activity/Vol] 327 U/L Critically high 16-63 [facility] Comment on above: Performed By: #### L ACT #### [facility] [address] [place] [address] Dr. Kulwant Brennan Anion gap [Moles/Vol] 15.6 mmol/L Normal [facility] Comment on above: Performed By: #### L ACT #### [facility] [address] [place] [address] Dr. Kulwant Brennan AST [Catalytic activity/Vol] 229 U/L Critically high 15-37 [facility] Comment on above: Performed By: #### L ACT #### [facility] [address] [address] [address] Kulwant Brennan Bilirubin [Mass/Vol] 6.2 mg/dL Critically high 0.2-1.0 [facility] Comment on above: Performed By: #### L ACT #### [facility] [address] [place] [address] Dr. Kulwant Brennan Calcium [Mass/Vol] 7.2 mg/dL Critically low 8.5-10.1 [facility] Comment on above: Performed By: #### L ACT #### [facility] [address] [place] [address] Dr. Kulwant Brennan Chloride [Moles/Vol] 102 mmol/L Normal 98-107 [facility] Comment on above: Performed By: #### L ACT #### [facility] [address] [address] [address] Kulwant Brennan CO2 [Moles/Vol] 26.4 mmol/L Normal 21.0-32.0 [facility] Comment on above: Performed By: #### L ACT #### [facility] [address] [address] [address] Kulwant Brennan Creatinine [Mass/Vol] 3.33 mg/dL Critically high 0.70-1.30 [facility] Comment on above: Performed By: #### L ACT #### [facility] [address] [place] [address] Dr. Kulwant Brennan EGFR-AF EMIRATI 22 mL/min/1.73m2 Critically low >=60 [facility] Comment on above: Performed By: #### L ACT #### [facility] [address] [place] [address] Dr. Kulwant Brennan EGFR-NON AF EMIRATI 19 mL/min/1.73m2 Critically low >=60 [facility] Comment on above: Performed By: #### L ACT #### [facility] [address] [place] [address] Dr. Kulwant Brennan Globulin (S) [Mass/Vol] 3.8 g/dL Normal [facility] Comment on above: Performed By: #### L ACT #### [facility] [address] [address] [address] Kulwant Brennan Glucose [Mass/Vol] 245 mg/dL Critically high 74-106 [facility] Comment on above: Performed By: #### L ACT #### [facility] [address] [address] [address] Kulwant Brennan Potassium [Moles/Vol] 5.0 mmol/L Normal 3.5-5.1 [facility] Comment on above: Performed By: #### L ACT #### [facility] [address] [place] [address] Dr. Kulwant Brennan Protein [Mass/Vol] 7.1 g/dL Normal 6.4-8.2 [facility] Comment on above: Performed By: #### L ACT #### [facility] [address] [place] [address] Dr. Kulwant Brennan Sodium [Moles/Vol] 139 mmol/L Normal 136-145 [facility] Comment on above: Performed By: #### L ACT #### [facility] [address] [place] [address] Dr. Kulwant Brennan Urea nitrogen [Mass/Vol] 51.0 mg/dL Critically high 7.0-18.0 [facility] Comment on above: Performed By: #### L ACT #### [facility] [address] [place] [address] Dr. Kulwant Brennan Urea nitrogen/Creatinine [Mass ratio] 15.3 mg/mg Normal [facility] Comment on above: Performed By: #### L ACT #### [facility] [address] [place] [address] Dr. Kulwant Brennan PROTIMEon 12-31-2021 INR Coag (PPP) [Relative time] 1.17 {INR} Normal [facility] Comment on above: Performed By: #### H STROPN #### [facility] [address] [place] [address] Dr. Kulwant Brennan INR GUIDELINES SEE BELOW Normal [facility] Comment on above: Result Comment: HAYDEE RED INR: 2.0 - 3.0 CONDITIONS NOT LISTED BELOW 2.5 - 3.5 FOR PROSTHETIC HEART VALVE REPLACEMENT 2.5 - 3.5 RECURRENT THROMBOSIS Performed By: #### H STROPN #### [facility] [address] [place] [address] Dr. Kulwant Brennan PT Coag (PPP) [Time] 12.5 s Critically high 9.0-11.6 [facility] Comment on above: Performed By: #### H STROPN #### [facility] [address] [place] [address] Dr. Kulwant Brennan PTTon 12-31-2021 aPTT Coag (Bld) [Time] 33.3 s Normal 22.3-36.2 [facility] Comment on above: Performed By: #### P TT, PT ####[facility] [address] [address]Dr. Kulwant Brennan TROPONIN, HIGH SENSITIVITYon 12-31-2021 HSTROP 6.0 pg/mL Normal 4.0-76.1 [facility] Comment on above: Result Comment: CUT- OFF POINTS HAVE BEEN ESTABLISHED BASED ON THE FOURTH UNIVERSAL DEFINITIONS OF MYOCARDIAL INFARCTION. THE UPPER REFERENCE LIMIT (URL) OF TROPONIN, DEFINED THE 99TH PERCENTILE OF cTnI DISTRIBUTION IN A REFERENCE POPULATION, HAS BEEN CONFIRMED THE DECISION THRESHOLD FOR [place] DIAGNOSIS. Performed By: #### L ACT #### [facility] [address] [address] [address] Kulwant Brennan URINE MICROSCOPIC ONLYon BACTERIA SMALL Abnormal NONE SEEN [facility] Comment on above: Performed By: #### Lilly JHAVERI UMICRO ####[facility] [address] [address]Dr. Kulwant Brennan Bacteria identified Cx Nom (U) INDICATED Normal [facility] Comment on above: Performed By: #### Lilly JHAVERI UMICRO ####[facility] [address] [address]Dr. Kulwant Brennan CAST SEEN Abnormal NONE SEEN [facility] Comment on above: Performed By: #### Lilly JHAVERI UMICRO ####[facility] [address] [address]Dr. Kulwant Brennan COARSE GRANULAR CAST FEW Normal [facility] Comment on above: Performed By: #### Lilly JHAVERI UMICRO ####[facility] [address] [address]Dr. Kulwant Brennan Crystals LM Nom (Urine sed) NONE SEEN Normal NONE SEEN [facility] Comment on above: Performed By: #### Lilly JHAVERI UMICRO ####[facility] [address] [address]Dr. Kulwant Brennan Epithelial cells LM Ql (Urine sed) FEW Abnormal NONE SEEN /RARE [facility] Comment on above: Performed By: #### E RUR, UMICRO ####[facility] [address] [place], [place] [address]Kz. Kulwant Brennan MUCOUS TRACE Abnormal NONE SEEN [facility] Comment on above: Performed By: #### ANA LAURA VARELA ####[facility] [address] [place], [place] [address]Ru. Kulwant Brennan RBC 5-10 Abnormal 0-2 [facility] Comment on above: Performed By: #### ANA LAURA VARELA ####[facility] [address] [place], [place] [address]Sn. Kulwant Brennan WBC 0-2 Abnormal NONE SEEN [facility] Comment on above: Performed By: #### ANA LAURA VARELA ####[facility] [address] [place], [place] [address]Eu. Kulwant Brennan US SINGLE QUAD RT UPPERon US SINGLE QUAD RT UPPER Ultrasound abdomen right upper quadrant HISTORY: Abdominal pain COMPARISON: CT 12/30/2021. TECHNIQUE: Dedicated transabdominal right upper quadrant ultrasound was performed. FINDINGS: The gallbladder is nondistended and without focal wall abnormality. There are tiny dependent stones and a small amount of sludge at the gallbladder fundus. The gallbladder wall measures 2 mm in thickness. No pericholecystic fluid is seen, and the sonographic Bermudez's sign is negative. The common bile duct is 7-10 mm. There is no intrahepatic bile duct dilatation. The liver demonstrates normal echotexture and echogenicity. No discrete liver lesion seen. The visualized pancreas is normal. Portions of the pancreas are obscured by overlying bowel gas. The right kidney measures 12.8 x 6.5 x 4.2 cm. There is no hydronephrosis in the right kidney. There is no fluid in the right upper quadrant. IMPRESSION: 1. Cholelithiasis with tiny gallstones and sludge. No convincing sonographic evidence of acute cholecystitis. Gallbladder pathology is more conspicuous by CT 12/30/2021 than by ultrasound. Correlate with symptoms and laboratory studies, with follow-up HIDA scan if the clinical picture remains uncertain. 2. Borderline to mildly dilated common bile duct at 7-10 mm. No intrahepatic biliary ductal dilatation. If there is concern for choledocholithiasis, MRCP may be of benefit. 3. Right kidney without hydronephrosis. Electronically authenticated by: DAVIE NARANJO Date: 2021-12-31 19:27 Normal [facility] AMYLASEon 12-30-2021 Amylase [Catalytic activity/Vol] 47 U/L Normal 25-115 [facility] Comment on above: Performed By: #### H STROPN #### [facility] [address] [address] [address] Kulwant Brennan CBC AUTO DIFFon 12-30-2021 BASO # 0.0 103/ul Normal 0.0-0.1 [facility] Comment on above: Performed By: #### L ACT #### [facility] [address] [address] [address] Kulwant Brennan Basophils/100 WBC (Bld) 0.5 % Normal 0.2-2.0 [facility] Comment on above: Performed By: #### L ACT #### [facility] [address] [address] [address] Kulwant Brennan EO # 0.3 103/ul Normal 0.0-0.7 [facility] Comment on above: Performed By: #### L ACT #### [facility] [address] [address] [address] Kulwant Brennan Eosinophils/100 WBC (Bld) 3.3 % Normal 0.9-7.0 [facility] Comment on above: Performed By: #### L ACT #### [facility] [address] [address] [address] Kulwant Brennan Erythrocyte distribution width (RBC) [Ratio] 14.1 % Normal 11.0-15.0 [facility] Comment on above: Performed By: #### L ACT #### [facility] [address] [address] [address] Kulwant Brennan Hematocrit (Bld) [Volume fraction] 38.8 % Critically low 42.0-54.0 [facility] Comment on above: Performed By: #### L ACT #### [facility] [address] [address] [address] Kulwant Brennan Hemoglobin (Bld) [Mass/Vol] 12.4 g/dL Critically low 14.0-18.0 [facility] Comment on above: Performed By: #### L ACT #### [facility] [address] [place] [address] Dr. Kulwant Brennan IG # 0.04 10e3/ul Critically high 0.00-0.03 [facility] Comment on above: Performed By: #### L ACT #### [facility] [address] [place] [address] Dr. Kulwant Brennan IG % 0.5 % Normal 0.0-0.5 [facility] Comment on above: Performed By: #### L ACT #### [facility] [address] [place] [address] Dr. Kulwant Brennan LYMPH # 1.9 103/ul Normal 1.2-3.8 [facility] Comment on above: Performed By: #### L ACT #### [facility] [address] [place] [address] Dr. Kulwant Brennan Lymphocytes/100 WBC (Bld) 23.9 % Normal 20.5-60.0 [facility] Comment on above: Performed By: #### L ACT #### [facility] [address] [place] [address] Dr. Kulwant Brennan MANUAL DIFF REQ NO Normal [facility] Comment on above: Performed By: #### L ACT #### [facility] [address] [place] [address] Dr. Kulwant Brennan MCH (RBC) [Entitic mass] 27.5 pg Normal 25.9-34.0 [facility] Comment on above: Performed By: #### L ACT #### [facility] [address] [place] [address] Dr. Kulwant Brennan MCHC (RBC) [Mass/Vol] 32.0 g/dL Normal 29.9-35.2 [facility] Comment on above: Performed By: #### L ACT #### [facility] [address] [place] [address] Dr. Kulwant Brennan MCV (RBC) [Entitic vol] 86.0 fL Normal 80.0-94.0 [facility] Comment on above: Performed By: #### L ACT #### [facility] [address] [address] [address] Kulwant Brennan MONO # 0.9 103/ul Critically high 0.3-0.8 [facility] Comment on above: Performed By: #### L ACT #### [facility] [address] [address] [address] Kulwant Brennan Monocytes/100 WBC (Bld) 11.8 % Normal 1.7-12.0 [facility] Comment on above: Performed By: #### L ACT #### [facility] [address] [address] [address] Kulwant Brennan NEUT # 4.7 103/ul Normal 1.4-6.5 [facility] Comment on above: Performed By: #### L ACT #### [facility] [address] [address] [address] Kulwant Brennan Neutrophils/100 WBC (Bld) 60.0 % Normal 43.0-75.0 [facility] Comment on above: Performed By: #### L ACT #### [facility] [address] [address] [address] Kulwant Brennan Platelet mean volume (Bld) [Entitic vol] 10.0 fL Normal 9.5-13.5 [facility] Comment on above: Performed By: #### L ACT #### [facility] [address] [address] [address] Kulwant Brennan PLT 222 103/ul Normal 150-450 [facility] Comment on above: Performed By: #### L ACT #### [facility] [address] [address] [address] Kulwant Brennan RBC 4.51 106/ul Critically low 4.70-6.10 [facility] Comment on above: Performed By: #### L ACT #### [facility] [address] [address] [address] Kulwant Brennan WBC 7.9 103/ul Normal 4.0-11.0 [facility] Comment on above: Performed By: #### L ACT #### [facility] [address] [address] [address] ABD/PELV W CONon 12-31-[address] ABD/PELV W CON EXAMINATION: CT ABD/ PELV W CON HISTORY: UNSPECIFIED ABDOMINAL PAIN COMPARISON: 12/29/2021. TECHNIQUE: CT of abdomen/pelvis with intravenous contrast. Dose reduction techniques were achieved by using automated exposure control and/or adjustment of mA and/or kV according to patient size and/or use of iterative reconstruction technique. FINDINGS: Math [employer] Instructor: No pertinent findings, which are not already discussed below. Tubes/lines/drains: None. CHEST: Lungs: Mild dependent changes. Cardiac and vascular: No cardiomegaly or significant pericardial effusion. Moderate size hiatal hernia ABDOMEN: Liver: Subcentimeter hypodense foci within segment IVb and segment 5, likely hepatic cysts. Gallbladder and Biliary Tree: Again seen, less conspicuous layering hyperdense intraluminal material. Hydropic gallbladder. No surrounding inflammatory changes. No ductal dilation appreciated. Spleen: Unremarkable. Pancreas: Unremarkable. Adrenal Glands: Unremarkable. Kidneys, Ureters, Bladder: No concerning renal lesions or masses. No urolithiasis. No hydronephrosis or hydroureterosis. Unremarkable bladder. Gastrointestinal: Small duodenal diverticulum. Colonic diverticulosis, most prominent within the sigmoid. No mural thickening or inflammatory changes. No dilated loops of small or large bowel. Redemonstrated peripherally hyperdense, centrally fat-containing focus along the right paracolic gutter measuring 1.9 cm. Reproductive organ(s): Borderline prostatomegaly. Lymphatic: No concerning retroperitoneal, mesenteric, or inguinal adenopathy. Vessels: Scattered atherosclerotic calcifications. BONES AND SOFT TISSUE: Bones: No acute fracture. No concerning osseous lesions. Transitional lumbosacral anatomy with lumbarization of S1. Superimposed degenerative changes, most significant at L3-L4 Soft Tissue: Within normal limits. IMPRESSION: 1. Moderate hiatal hernia without acute intra-abdominal/pelvic findings. 2. Redemonstrated hydropic gallbladder with intraluminal hyperdense layering material. 3. Unchanged focus of right paracolic gutter epiploic appendagitis versus omental infarct. Electronically authenticated by: ALIYA NEFF Date: 2021-12-30 21:29 Normal [facility] ER URINE PROFILEon 09-10-202 2 Bilirubin Ql (U) Negative Normal NEGATIVE [facility] Comment on above: Performed By: #### L ACT #### [facility] [address] [address] [address] Kulwant Brennan Clarity (U) CLEAR Normal CLEAR [facility] Comment on above: Performed By: #### L ACT #### [facility] [address] [place] [address] Dr. Kulwant Brennan Color (U) LT. YELLOW Normal YELLOW [facility] Comment on above: Performed By: #### L ACT #### [facility] [address] [place] [address] Dr. Kulwant Brennan ERUAHD A micrscopic examina tion will be performed if indicated. Normal [facility] Comment on above: Performed By: #### L ACT #### [facility] [address] [place] [address] Dr. Kulwant Brennan Glucose Ql (U) Negative Normal NEGATIVE [facility] Comment on above: Performed By: #### L ACT #### [facility] [address] [place] [address] Dr. Kulwant Brennan Hemoglobin Ql (U) Negative Normal NEGATIVE [facility] Comment on above: Performed By: #### L ACT #### [facility] [address] [place] [address] Dr. Kulwant Brennan Ketones Ql (U) Negative Normal NEGATIVE [facility] Comment on above: Performed By: #### L ACT #### [facility] [address] [place] [address] Dr. Kulwant Brennan LEUKOCYTES Negative Normal NEGATIVE [facility] Comment on above: Performed By: #### L ACT #### [facility] [address] [address] [address] Kulwant Brennan Nitrite Ql (U) Negative Normal NEGATIVE [facility] Comment on above: Performed By: #### L ACT #### [facility] [address] [place] [address] Dr. Kulwant Brennan pH (U) 5.5 [pH] Normal 5-9 [facility] Comment on above: Performed By: #### L ACT #### [facility] [address] [place] [address] Dr. Kulwant Brennan SPEC GRAVITY >=1.030 Abnormal 1.005-<=1. 025 [facility] Comment on above: Performed By: #### L ACT #### [facility] [address] [place] [address] Dr. Kulwant Brennan UA PROTEIN Negative Normal NEGATIVE/ TRACE [facility] Comment on above: Performed By: #### L ACT #### [facility] [address] [address] [address] Kulwant Brennan UR MICRO IND NOT INDICATED Normal [facility] Comment on above: Performed By: #### L ACT #### [facility] [address] [place] [address] Dr. Kulwant Brennan Urobilinogen Qn (U) 0.2 {Luis'U}/dL Normal 0.2 - 1. 0 [facility] Comment on above: Performed By: #### L ACT #### [facility] [address] [place] [address] Dr. Kulwant Brennan LIPASEon 12-30-2021 Lipase [Catalytic activity/Vol] 105.0 U/L Normal 73.0-393.0 [facility] Comment on above: Performed By: #### H STROPN #### [facility] [address] [place] [address] Dr. Kulwant Brennan LIVER PROFILEon 12-30-2021 Albumin [Mass/Vol] 3.8 g/dL Normal 3.4-5.0 [facility] Comment on above: Performed By: #### H STROPN #### [facility] [address] [place] [address] Dr. Kulwant Brennan Albumin/Globulin [Mass ratio] 1.0 {ratio} Normal [facility] Comment on above: Performed By: #### H STROPN #### [facility] [address] [place] [address] Dr. Kulwant Brennan ALP [Catalytic activity/Vol] 67 U/L Normal 46-116 [facility] Comment on above: Performed By: #### H STROPN #### [facility] [address] [address] [address] Kulwant Brennan ALT [Catalytic activity/Vol] 31 U/L Normal 16-63 [facility] Comment on above: Performed By: #### H STROPN #### [facility] [address] [place] [address] Dr. Kulwant Brennan AST [Catalytic activity/Vol] 21 U/L Normal 15-37 [facility] Comment on above: Performed By: #### H STROPN #### [facility] [address] [place] [address] Dr. Kulwant Brennan BILI, CONJUGATED 0.1 mg/dL Normal 0.0-0.2 [facility] Comment on above: Performed By: #### H STROPN #### [facility] [address] [place] [address] Dr. Kulwant Brennan Bilirubin [Mass/Vol] 0.5 mg/dL Normal 0.2-1.0 [facility] Comment on above: Performed By: #### H STROPN #### [facility] [address] [place] [address] Dr. Kulwant Brennan Globulin (S) [Mass/Vol] 3.7 g/dL Normal [facility] Comment on above: Performed By: #### H STROPN #### [facility] [address] [place] [address] Dr. Kulwant Brennan Protein [Mass/Vol] 7.5 g/dL Normal 6.4-8.2 [facility] Comment on above: Performed By: #### H STROPN #### [facility] [address] [place] [address] Dr. Kulwant Brennan PROF CHEM 8 (BAS METB)on Anion gap [Moles/Vol] 14.5 mmol/L Normal [facility] Comment on above: Performed By: #### H STROPN #### [facility] [address] [place] [address] Dr. Kulwant Brennan Calcium [Mass/Vol] 7.5 mg/dL Critically low 8.5-10.1 [facility] Comment on above: Performed By: #### H STROPN #### [facility] [address] [address] [address] Kulwant Brennan Chloride [Moles/Vol] 104 mmol/L Normal 98-107 [facility] Comment on above: Performed By: #### H STROPN #### [facility] [address] [address] [address] Kulwant Brennan CO2 [Moles/Vol] 26.8 mmol/L Normal 21.0-32.0 [facility] Comment on above: Performed By: #### H STROPN #### [facility] [address] [address] [address] Kulwant Brennan Creatinine [Mass/Vol] 1.31 mg/dL Critically high 0.70-1.30 [facility] Comment on above: Performed By: #### H STROPN #### [facility] [address] [address] [address] Kulwant Brennan EGFR-AF EMIRATI >60 Normal >=60 [facility] Comment on above: Performed By: #### H STROPN #### [facility] [address] [address] [address] Kulwant Brennan EGFR-NON AF EMIRATI 54 mL/min/1.73m2 Critically low >=60 [facility] Comment on above: Performed By: #### H STROPN #### [facility] [address] [address] [address] Kulwant Brennan Glucose [Mass/Vol] 97 mg/dL Normal 74-106 [facility] Comment on above: Performed By: #### H STROPN #### [facility] [address] [address] [address] Kulwant Brennan Potassium [Moles/Vol] 4.3 mmol/L Normal 3.5-5.1 [facility] Comment on above: Performed By: #### H STROPN #### [facility] [address] [address] [address] Kulwant Brennan Sodium [Moles/Vol] 141 mmol/L Normal 136-145 [facility] Comment on above: Performed By: #### H STROPN #### [facility] [address] [place] [address] Dr. Kulwant Brennan Urea nitrogen [Mass/Vol] 25.0 mg/dL Critically high 7.0-18.0 [facility] Comment on above: Performed By: #### H STROPN #### [facility] [address] [place] [address] Dr. Kulwant Brennan Urea nitrogen/Creatinine [Mass ratio] 19.1 mg/mg Normal [facility] Comment on above: Performed By: #### H STROPN #### [facility] [address] [place] [address] Dr. Kulwant Brennan CBC AUTO DIFFon 12-29-2021 BASO # 0.0 103/ul Normal 0.0-0.1 [facility] Comment on above: Performed By: #### H STROPN #### [facility] [address] [place] [address] Dr. Kulwant Brennan Basophils/100 WBC (Bld) 0.5 % Normal 0.2-2.0 [facility] Comment on above: Performed By: #### H STROPN #### [facility] [address] [place] [address] Dr. Kulwant Brennan EO # 0.3 103/ul Normal 0.0-0.7 [facility] Comment on above: Performed By: #### H STROPN #### [facility] [address] [place] [address] Dr. Kulwant Brennan Eosinophils/100 WBC (Bld) 3.6 % Normal 0.9-7.0 [facility] Comment on above: Performed By: #### H STROPN #### [facility] [address] [place] [address] Dr. Kulwant Brennan Erythrocyte distribution width (RBC) [Ratio] 14.1 % Normal 11.0-15.0 [facility] Comment on above: Performed By: #### H STROPN #### [facility] [address] [place] [address] Dr. Kulwant Brennan Hematocrit (Bld) [Volume fraction] 39.0 % Critically low 42.0-54.0 [facility] Comment on above: Performed By: #### H STROPN #### [facility] [address] [place] [address] Dr. Kulwant Brennan Hemoglobin (Bld) [Mass/Vol] 12.5 g/dL Critically low 14.0-18.0 [facility] Comment on above: Performed By: #### H STROPN #### [facility] [address] [place] [address] Dr. Kulwant Brennan IG # 0.03 10e3/ul Normal 0.00-0.03 [facility] Comment on above: Performed By: #### H STROPN #### [facility] [address] [place] [address] Dr. Kulwant Brennan IG % 0.4 % Normal 0.0-0.5 [facility] Comment on above: Performed By: #### H STROPN #### [facility] [address] [place] [address] Dr. Kulwant Brennan LYMPH # 2.0 103/ul Normal 1.2-3.8 [facility] Comment on above: Performed By: #### H STROPN #### [facility] [address] [place] [address] Dr. Kulwant Brennan Lymphocytes/100 WBC (Bld) 28.0 % Normal 20.5-60.0 [facility] Comment on above: Performed By: #### H STROPN #### [facility] [address] [place] [address] Dr. Kulwant Brennan MANUAL DIFF REQ NO Normal [facility] Comment on above: Performed By: #### H STROPN #### [facility] [address] [place] [address] Dr. Kulwant Brennan MCH (RBC) [Entitic mass] 27.5 pg Normal 25.9-34.0 [facility] Comment on above: Performed By: #### H STROPN #### [facility] [address] [place] [address] Dr. Kulwant Brennan MCHC (RBC) [Mass/Vol] 32.1 g/dL Normal 29.9-35.2 [facility] Comment on above: Performed By: #### H STROPN #### [facility] [address] [place] [address] Dr. Kulwant Brennan MCV (RBC) [Entitic vol] 85.7 fL Normal 80.0-94.0 [facility] Comment on above: Performed By: #### H STROPN #### [facility] [address] [place] [address] Dr. Kulwant Brennan MONO # 1.0 103/ul Critically high 0.3-0.8 [facility] Comment on above: Performed By: #### H STROPN #### [facility] [address] [place] [address] Dr. Kulwant Brennan Monocytes/100 WBC (Bld) 14.0 % Critically high 1.7-12.0 [facility] Comment on above: Performed By: #### H STROPN #### [facility] [address] [place] [address] Dr. Kulwant Brennan NEUT # 3.9 103/ul Normal 1.4-6.5 [facility] Comment on above: Performed By: #### H STROPN #### [facility] [address] [place] [address] Dr. Kulwant Brennan Neutrophils/100 WBC (Bld) 53.5 % Normal 43.0-75.0 [facility] Comment on above: Performed By: #### H STROPN #### [facility] [address] [place] [address] Dr. Kulwant Brennan Platelet mean volume (Bld) [Entitic vol] 10.1 fL Normal 9.5-13.5 [facility] Comment on above: Performed By: #### H STROPN #### [facility] [address] [place] [address] Dr. Kulwant Brennan PLT 237 103/ul Normal 150-450 [facility] Comment on above: Performed By: #### H STROPN #### [facility] [address] [place] [address] Dr. Kulwant Brennan RBC 4.55 106/ul Critically low 4.70-6.10 [facility] Comment on above: Performed By: #### H STROPN #### [facility] [address] [place], [place] [address] Dr. Kulwant Brennan WBC 7.3 103/ul Normal 4.0-11.0 [facility] Comment on above: Performed By: #### H STROPN #### [facility] [address] [place], [place] [address] ABD/PELVIS WO CONon 12-29 CT ABD/PELVIS WO CON CT ABD/PELVIS WO CON: 12/28/2021 11:46 PM EDT CLINICAL HISTORY: 66 years old Male with CALCULUS OF KIDNEY. Right flank pain. TECHNIQUE: Axial CT images through the abdomen and pelvis are obtained without the intravenous administration of contrast. Coronal and sagittal reformations are also obtained. Dose reduction techniques were achieved by using automated exposure control and/or adjustment of mA and/or kV according to patient size and/or use of iterative reconstruction technique. COMPARISON: CT abdomen pelvis 11/03/2020. FINDINGS: The lung bases are clear with no dependent infiltrate or effusion. Without the use of IV or oral contrast the study is limited by incomplete evaluation of the blood vessels, solid visceral organs and bowel. The liver, spleen, pancreas and bilateral adrenal glands are unremarkable. The gallbladder is mildly distended with tiny calcific densities likely cholelithiasis. No intrahepatic or extrahepatic biliary ductal dilatation. The bilateral kidneys are unremarkable with no renal calculi or hydronephrosis. The bilateral ureters demonstrate no gross abnormality or obstruction. Moderate hiatal hernia persists. Duodenal diverticulum is present. No abnormally dilated loops of small bowel are evident. The appendix is surgically absent. A few diverticula of the colon are present without focal inflammatory change. Oval stranding fat density adjacent to the descending colon at the lateral margin (series 4 image 72 and series 6 image 49) cc's likely epiploic appendicitis or small omental infarct. The bladder appears unremarkable. There is no evidence of aortic aneurysm. No enlarged lymph nodes are seen. No free air or free fluid is seen. The prostate gland is within normal limits. 6 lumbar type vertebral body segments are present with transitional vertebral body segment with pseudoarticulation of the transverse processes. Multilevel discogenic degenerative change with vacuum disc phenomenon and spurring. No acute compression fracture deformity or suspicious osseous abnormality. IMPRESSION: 1. Epiploic appendage enteritis versus small omental infarct at the ascending colon. 2. Mildly distended gallbladder with cholelithiasis. 3. Moderate hiatal hernia. 4. Diverticulosis. Electronically authenticated by: AMOS RAMIREZ Date: 2021-12-29 00:59 Normal [facility] PROF 14(COMP METB)on 022 Albumin [Mass/Vol] 4.0 g/dL Normal 3.4-5.0 [facility] Comment on above: Performed By: #### H STROPN #### [facility] [address] [place] [address] Dr. Kulwant Brennan Albumin/Globulin [Mass ratio] 1.1 {ratio} Normal [facility] Comment on above: Performed By: #### H STROPN #### [facility] [address] [place] [address] Dr. Kulwant Brennan ALP [Catalytic activity/Vol] 68 U/L Normal 46-116 [facility] Comment on above: Performed By: #### H STROPN #### [facility] [address] [place] [address] Dr. Kulwant Brennan ALT [Catalytic activity/Vol] 27 U/L Normal 16-63 [facility] Comment on above: Performed By: #### H STROPN #### [facility] [address] [place] [address] Dr. Kulwant Brennan Anion gap [Moles/Vol] 12.8 mmol/L Normal [facility] Comment on above: Performed By: #### H STROPN #### [facility] [address] [place] [address] Dr. Kulwant Brennan AST [Catalytic activity/Vol] 16 U/L Normal 15-37 [facility] Comment on above: Performed By: #### H STROPN #### [facility] [address] [place] [address] Dr. Kulwant Brennan Bilirubin [Mass/Vol] 0.5 mg/dL Normal 0.2-1.0 [facility] Comment on above: Performed By: #### H STROPN #### [facility] [address] [place] [address] Dr. Kulwant Brennan Calcium [Mass/Vol] 7.4 mg/dL Critically low 8.5-10.1 [facility] Comment on above: Performed By: #### H STROPN #### [facility] [address] [place] [address] Dr. Kulwant Brennan Chloride [Moles/Vol] 102 mmol/L Normal 98-107 [facility] Comment on above: Performed By: #### H STROPN #### [facility] [address] [place] [address] Dr. Kulwant Brennan CO2 [Moles/Vol] 27.1 mmol/L Normal 21.0-32.0 [facility] Comment on above: Performed By: #### H STROPN #### [facility] [address] [place] [address] Dr. Kulwant Brennan Creatinine [Mass/Vol] 1.42 mg/dL Critically high 0.70-1.30 [facility] Comment on above: Performed By: #### H STROPN #### [facility] [address] [place] [address] Dr. Kulwant Brennan EGFR-AF EMIRATI 60 mL/min/1.73m2 Normal >=60 [facility] Comment on above: Performed By: #### H STROPN #### [facility] [address] [place] [address] Dr. Kulwant Brennan EGFR-NON AF EMIRATI 50 mL/min/1.73m2 Critically low >=60 [facility] Comment on above: Performed By: #### H STROPN #### [facility] [address] [place] [address] Dr. Kulwant Brennan Globulin (S) [Mass/Vol] 3.5 g/dL Normal [facility] Comment on above: Performed By: #### H STROPN #### [facility] [address] [place] [address] Dr. Kulwant Brennan Glucose [Mass/Vol] 139 mg/dL Critically high 74-106 [facility] Comment on above: Performed By: #### H STROPN #### [facility] [address] [place] [address] Dr. Kulwant Brennan Potassium [Moles/Vol] 3.9 mmol/L Normal 3.5-5.1 [facility] Comment on above: Performed By: #### H STROPN #### [facility] [address] [place] [address] Dr. Kulwant Brennan Protein [Mass/Vol] 7.5 g/dL Normal 6.4-8.2 [facility] Comment on above: Performed By: #### H STROPN #### [facility] [address] [place] [address] Dr. Kulwant Brennan Sodium [Moles/Vol] 138 mmol/L Normal 136-145 [facility] Comment on above: Performed By: #### H STROPN #### [facility] [address] [place] [address] Dr. Kulwant Brennan Urea nitrogen [Mass/Vol] 27.0 mg/dL Critically high 7.0-18.0 [facility] Comment on above: Performed By: #### H STROPN #### [facility] [address] [place] [address] Dr. Kulwant Brennan Urea nitrogen/Creatinine [Mass ratio] 19.0 mg/mg Normal [facility] Comment on above: Performed By: #### H STROPN #### [facility] [address] [place] [address] Dr. Kuwlant Brennan APTTon 12-13-2021 aPTT Coag (Bld) [Time] 32.8 s Normal 25.0-35.[address] [facility] Comment on above: Order Comment: No: D o not add to previous draw Result Comment: ALL RESULTS MUST BE INTERPRETED WITH RESPECT TO BLOOD DRAWING ARTIFACT OR DILUTION ERROR OF ANTICOAGULANT AT THE TIME OF SAMPLING. THE APTT SHOULD NOT BE USED TO MONITOR UNFRACTIONATED HEPARIN THERAPY, THIS LABORATORY NO LONGER HAS AN ESTABLISHED THERAPEUTIC RANGE BASED ON THE APTT. IT IS RECOMMENDED THAT THE UFH - HEPARIN ASSAY (ANTI-XA ACTIVITY) BE USED FOR THIS PURPOSE. Performed By: #### 5 [id number], [id number] #### [facility] [address] [place] [address], [facility] CBC COMPLETE BLOOD COUNTon 0 8-24-2022 Erythrocyte distribution width (RBC) [Ratio] 14.0 % Normal 11.5-15.[address] [facility] Comment on above: Order Comment: No: D o not add to previous draw Performed By: #### 5 6100, 11515 #### [facility] [address] [place] [address], [facility] Hematocrit (Bld) [Volume fraction] 36.7 % Low 39.0-50.[address] [facility] Comment on above: Order Comment: No: D o not add to previous draw Performed By: #### 5 6100, 36139 #### [facility] [address] [place] [address], [facility] Hemoglobin (Bld) [Mass/Vol] 12.0 g/dL Low 13.0-17.[address] [facility] Comment on above: Order Comment: No: D o not add to previous draw Performed By: #### 5 6100, 58754 #### [facility] [address] [place] [address], [facility] MCH (RBC) [Entitic mass] 27.5 pg Normal 27.0-33.[address] [facility] Comment on above: Order Comment: No: D o not add to previous draw Performed By: #### 5 6100, 91160 #### [facility] [address] [place] [id number], [facility] MCHC (RBC) [Mass/Vol] 32.7 g/dL Normal 32.0-35.[address] [facility] Comment on above: Order Comment: No: D o not add to previous draw Performed By: #### 5 6100, 11655 #### [facility] [address] [place] [id number], [facility] MCV (RBC) [Entitic vol] 84.0 fL Normal 82.0-98.[address] [facility] Comment on above: Order Comment: No: D o not add to previous draw Performed By: #### 5 6100, 39475 #### [facility] [address] Nucleated RBC/100 WBC (Bld) [Ratio] 0 % Normal 0-[address] [facility] Comment on above: Order Comment: No: D o not add to previous draw Performed By: #### 5 610, 39520 #### [facility] [address] [place] [id number], [facility] PLAT CNT 166 10*3/uL Normal 150-[address] [facility] Comment on above: Order Comment: No: D o not add to previous draw Performed By: #### 5 6100, 18836 #### [facility] [address] [facility] [address], [facility] RBC (Bld) [#/Vol] 4.37 10*6/uL Normal 4.20-5.[address] [facility] Comment on above: Order Comment: No: D o not add to previous draw Performed By: #### 5 6100, 74443 #### [facility] [address] [facility] [address], [facility] WBC (Bld) [#/Vol] 8.41 10*3/uL Normal 4.00-10.[address] [facility] Comment on above: Order Comment: No: D o not add to previous draw Performed By: #### 5 6100, 05417 #### [facility] [address] [place] [address], [facility] COMP METABOLIC PANELon 12-13 Albumin [Mass/Vol] 3.8 g/dL Normal 3.5-5.[address] [facility] Comment on above: Order Comment: No: D o not add to previous draw Performed By: #### 5 610, 57404 #### [facility] [address] [place] [address], [facility] ALKALINE PHOSPH 52 IU/L Normal 34-[address] [facility] Comment on above: Order Comment: No: D o not add to previous draw Performed By: #### 5 610, 59864 #### [facility] [address] [place] [address], [place] ALT [Catalytic activity/Vol] 16 U/L Normal 7-[address] [facility] Comment on above: Order Comment: No: D o not add to previous draw Performed By: #### 5 610, 96373 #### [facility] [address] [place] [address], [place] AST [Catalytic activity/Vol] 15 U/L Normal 13-[address] [facility] Comment on above: Order Comment: No: D o not add to previous draw Performed By: #### 5 6100, 30234 #### [facility] [address] [place] [address], [place] Bilirubin [Mass/Vol] 0.9 mg/dL Normal 0.3-1.[address] [facility] Comment on above: Order Comment: No: D o not add to previous draw Performed By: #### 5 6100, 55796 #### [facility] [address] [place] [address], [place] Calcium [Mass/Vol] 7.0 mg/dL Low 8.6-10.[address] [facility] Comment on above: Order Comment: No: D o not add to previous draw Performed By: #### 5 6100, 24104 #### [facility] [address] [place] [address], [place] Chloride [Moles/Vol] 106 mmol/L Normal 98-[address] [facility] Comment on above: Order Comment: No: D o not add to previous draw Performed By: #### 5 6100, 00770 #### [facility] [address] [place] [address], [place] CO2 [Moles/Vol] 27 mmol/L Normal 21-[address] [facility] Comment on above: Order Comment: No: D o not add to previous draw Performed By: #### 5 610, 31506 #### [facility] [address] [place] [address], [place] Creatinine [Mass/Vol] 1.16 mg/dL Normal 0.70-1.[address] [facility] Comment on above: Order Comment: No: D o not add to previous draw Performed By: #### 5 610, 78170 #### [facility] [address] [place] [address], [place] GFR/1.73 sq M.predicted among non-blacks MDRD (S/P/Bld) [Vol rate/Area] mL/min/{1.73_m2} Normal >[address] [facility] Comment on above: Order Comment: No: D o not add to previous draw Result Comment: [facility]'s estimated glomerular filtration rate (eGFR) will no longer include consideration of race in its calculation. The National Kid[employer] Foundation's eGFR Task Force developed new recommendations for the estimation of the glomerular filtration rate in the [place] They recommend immediate implementation of the new equation refit without the race variable in all laboratories because the calculation does not include race. In addition to not including race in the calculation and reporting, it included diversity in its development, and has acceptable performance characteristics and potential consequences that do not disproportionately affect any one group of individuals. Performed By: #### 5 6101, 15309 #### [facility] [address] [place] [address], [facility] Glucose [Mass/Vol] 104 mg/dL High 70-[address] [facility] Comment on above: Order Comment: No: D o not add to previous draw Performed By: #### 5 6101, 92851 #### [facility] [address] [place] [address], [place] Potassium [Moles/Vol] 4.3 mmol/L Normal 3.5-5.[address] [facility] Comment on above: Order Comment: No: D o not add to previous draw Performed By: #### 5 610, 96194 #### [facility] [address] [place] [address], [place] Protein [Mass/Vol] 6.2 g/dL Normal 6.0-8.[address] [facility] Comment on above: Order Comment: No: D o not add to previous draw Performed By: #### 5 6101, 74898 #### [facility] [address] [facility] [address] Sodium [Moles/Vol] 138 mmol/L Normal 136-[address] [facility] Comment on above: Order Comment: No: D o not add to previous draw Performed By: #### 5 6101, 14777 #### [facility] [address] [facility]. [address] Urea nitrogen [Mass/Vol] 26 mg/dL High 7-[address] [facility] Comment on above: Order Comment: No: D o not add to previous draw Performed By: #### 5 6101, 31807 #### [facility] [address] Cardiovascular Lab Reporton 12-13-2021 Cardiovascular Lab Report [facility] Patient Name: Yoli Antunez [facility] MR #: [id number] Physician: Mono Hinson Department of [facility] Date: 12/12/2021 Division of Birthdate: 1955 Cardiology Room #: [id number] Adult Cardiovascular Services [place] [address] Cardiovascular Laboratory Report INDICATION: The patient is a 66-year-old man with history of paroxysmal atrial fibrillation, status post 3-time atrial fibrillation ablations in the past. He still gets recurrent bouts of atrial fibrillation. His CHADS2-VASc score is 5 due to age, hypertension, vascular disease and prior repeated TIAs. He has long-term anticoagulation to prevent risk of stroke. He is not a good candidate for long-term anticoagulation therapy due to recurrent falls, bleeding, and inability to afford and be compliant with anticoagulation therapy. He was offered the Watchman procedure as an alternative to long-term anticoagulation to prevent risk of stroke. He had shared decision making with Dr. Shaye Palmer and was brought today for the procedure. PROCEDURES: 1. Aborted left atrial appendage closure after attempt with a Watchman FLX device. 2. Transseptal puncture performed under fluoroscopic and transesophageal echocardiography guidance. 3. Left atrial appendage angiogram. 4. Access into the right common femoral vein under ultrasound guidance. 5. Preclosure in the right common femoral vein using a 6-Spanish ProGlide device. METHODS: Procedure was explained to the patient with risks and benefits, he signed informed consent. He was brought to technical laboratory asst in a fasting state. The procedure was performed under conscious sedation. Transesophageal echocardiogram was performed at baseline for measurement of the left atrial appendage dimensions. The width was 21.1 and the depth was 24.5 mm. There was no thrombus and there was a small anterior pericardial effusion at baseline. Please refer to Dr. Shaye Palmer's dictation for details of the transesophageal echocardiogram. Ultrasound guidance and micropuncture technique were used for access in the right common femoral vein and a 6-Spanish x 11 cm sheath was placed. Preclosure in the vein was performed using a 6-Spanish ProGlide device, a transseptal wire was advanced and an SL1 transseptal sheath was advanced to the superior vena cava. A BRK-1 needle was then advanced through the sheath and transseptal puncture was performed in a slightly superior and mid position in the AP axis. The interatrial septum was lipomatous and the fossa ovalis was small, not allowing room on selecting the location of the transseptal puncture. It was initially hard to puncture the septum with a needle; however, that was feasible with clockwise rotation of the system and a Prowater wire was advanced to the left superior pulmonary vein and then the transseptal sheath was then advanced using standard techniques and the dilator, needle and wire were retracted. Position in the left atrial cavity was confirmed by measuring pressure, obtaining saturated blood and by fluoroscopy and transesophageal echocardiography. Left atrial pressure was 8 mmHg, therefore the patient was given 500 mL of saline bolus intravenously. Heparin was administered intravenously and therapeutic ACT confirmed during the rest of the procedure and additional heparin given as needed. An exchange length Amplatz Super Stiff wire was advanced to the left superior pulmonary vein. The transeptal sheath was retracted and exchanged to the Watchman 14-Spanish double curve access sheath. This was not able to advance across the septum, likely due to fibrotic interatrial septum given multiple prior transseptal punctures and atrial fibrillation ablation procedures. The sheath was retracted. The dilator was then advanced across the transseptal puncture and that went easily. We went back again with the access sheath and dilator assembly, there was inability to cross the septum, therefore we decided to exchange the wire to a stiffer wire. This was performed using a 6-Spanish multipurpose catheter, through which we advanced a Lunderquist double curve wire and the distal end was placed in the left superior pulmonary vein. This eventually allowed to advance the sheath across the interatrial septum. A 6-Spanish angled pigtail catheter was advanced and used to select into the left atrial appendage. Left atrial appendage angiogram was performed using the BO caudal view. Fluoroscopy measurements confirmed the transesophageal echocardiography measurements. We advanced the Watchman access sheath into the left atrial appendage and confirmed position by angiography. Note that throughout this process, the patient was coughing a lot due to heavy secretions, despite active suctioning continuously and we provided the (more content not included)... Normal [facility] PROTHROMBIN TIMEon 2 INR Coag (PPP) [Relative time] 1.09 {INR} Normal 0.91-1.[address] [facility] Comment on above: Order Comment: No: D o not add to previous draw Result Comment: ACCC P RECOMMENDED INR FOR WARFARIN THERAPY ------ ------- CONDITION INR PROPHYLAXIS OF VENOUS THROMBOSIS 2-3 (HIGH-RISK SURGERY) TREATMENT OF VENOUS THROMBOSIS 2-3 TREATMENT OF PULMONARY EMBOLISM 2-3 PREVENTION OF SYSTEMIC EMBOLISM: 2-3 ACUTE MYOCARDIAL INFARCTION TISSUE HEART VALVES VALVULAR HEART DISEASE ATRIAL FIBRILLATION RECURRENT SYSTEMIC EMBOLISM MECHANICAL HEART VALVE 2.5-3.5 FROM: ORAL ANTICOAGULANTS. MECHANISM OF ACTION, CLINICAL EFFECTIVENESS, AND OPTIMAL THERAPEUTIC RANGE. CHEST 1995;108:231S-246S. Performed By: #### 5 6101, 47913 #### [facility] [address] [place] [address], [facility] PT Coag (PPP) [Time] 14.1 s Normal 12.3-14.[address] [facility] Comment on above: Order Comment: No: D o not add to previous draw Result Comment: ALL RESULTS MUST BE INTERPRETED WITH RESPECT TO BLOOD DRAWING ARTIFACT OR DILUTION ERROR OF ANTICOAGULANT AT THE TIME OF SAMPLING. Performed By: #### 5 6101, 79550 #### [facility] [address] TYPE AND SCREENon 12-12-2021 ABO INTERPRETATION O Normal [facility] Comment on above: Performed By: #### 6 2586 #### [facility] [address] [facility]. [address] RH INTERPRETATION Positive Normal [facility] Comment on above: Performed By: #### 6 2586 #### [facility] [address] [facility]on [facility]-20 SARS-CoV-2 (COVID-19) RNA MIKE+probe Ql (Unsp spec) Not detected Normal NOT DETECTED [facility] Comment on above: Result Comment: This test is not yet approved or cleared by the [place] FDA. When there are no FDA-approved or cleared tests available, and other criteria are met, FDA can make tests available under an emergency access mechanism called an Emergency Use Authorization (EUA). The EUA for this test is supported by the [employer] of Health and Human Service's (HHS's) declaration that circumstances exist to justify the emergency use of in vitro diagnostics for the detection and/or diagnosis of the virus that causes COVID-19. This EUA will remain in effect (meaning this test can be used) for the duration of the COVID-19 declaration justifying emergency of IVDs, unless it is terminated or revoked by FDA (after which the test may no longer be used). When diagnostic testing is negative, the possibility of a false negative should be considered in the context of a patient's recent exposures and the presence of clinical signs and symptoms consistent with SARS-CoV-2. Performed By: #### L ACT #### [facility] [address] [place] [address] [address] Kulwant Brennan *MRSA/MSSA DNA NASALon 11-21 *MRSA/MSSA DNA NASAL Clinical Report: (D) Specimen: NASAL SWAB Collected: 11/21/2021 09:15 Status: Final Last Updated: 11/21/2021 12:32 MSSA DNA (Final) Negative MRSA DNA (Final) Negative Normal [facility] Comment on above: Performed By: #### 3 1595 #### [facility] [address] [place] [address], [facility] BASIC METABOLIC PANELon 08-0 Calcium [Mass/Vol] 7.0 mg/dL Low 8.6-10.[address] [facility] Comment on above: Performed By: #### 0 0071 #### [facility] [address] [place] [address], [facility] Chloride [Moles/Vol] 105 mmol/L Normal 98-[address] [facility] Comment on above: Performed By: #### 0 0071 #### [facility] [address] [place] [address], [place] CO2 [Moles/Vol] 25 mmol/L Normal 21-[address] [facility] Comment on above: Performed By: #### 0 0071 #### [facility] [address] [place] [address], [place] Creatinine [Mass/Vol] 1.37 mg/dL High 0.70-1.[address] [facility] Comment on above: Performed By: #### 0 0071 #### [facility] [address] [place] [address], [place] EGFR 56 ml/min/1.73sq m Abnormal >[address] [facility] Comment on above: Result Comment: [facility]'s estimated glomerular filtration rate (eGFR) will no longer include consideration of race in its calculation. The National Kidney Foundation's eGFR Task Force developed new recommendations for the estimation of the glomerular filtration rate in the [place] They recommend immediate implementation of the new equation refit without the race variable in all laboratories because the calculation does not include race. In addition to not including race in the calculation and reporting, it included diversity in its development, and has acceptable performance characteristics and potential consequences that do not disproportionately affect any one group of individuals. Performed By: #### 0 0071 #### [facility] [address] [place] [address], [facility] Glucose [Mass/Vol] 100 mg/dL Normal 70-[address] [facility] Comment on above: Performed By: #### 0 0071 #### [facility] [address] [place] [address], [facility] Potassium [Moles/Vol] 4.6 mmol/L Normal 3.5-5.[address] [facility] Comment on above: Performed By: #### 0 0071 #### [facility] [address] [place] [address], [place] Sodium [Moles/Vol] 139 mmol/L Normal 136-[address] [facility] Comment on above: Performed By: #### 0 0071 #### [facility] [address] [place] [address], [place] Urea nitrogen [Mass/Vol] 26 mg/dL High 7-[address] [facility] Comment on above: Performed By: #### 0 0071 #### [facility] [address] [place] [address], [place] CBC COMPLETE BLOOD COUNTon 0 11-21-2021 Erythrocyte distribution width (RBC) [Ratio] 14.2 % Normal 11.5-15.[address] [facility] Comment on above: Performed By: #### 5 6101, 97375 #### [facility] [address] [place], [address] Hematocrit (Bld) [Volume fraction] 40.6 % Normal 39.0-50.[address] [facility] Comment on above: Performed By: #### 5 6100, 58411 #### [facility] [address] [place] [address], [facility] Hemoglobin (Bld) [Mass/Vol] 13.0 g/dL Normal 13.0-17.[address] [facility] Comment on above: Performed By: #### 5 6100, 23055 #### [facility] [address] [place] [address], [facility] MCH (RBC) [Entitic mass] 27.0 pg Normal 27.0-33.[address] [facility] Comment on above: Performed By: #### 5 6100, 64852 #### [facility] [address] [facility] [address] MCHC (RBC) [Mass/Vol] 32.0 g/dL Normal 32.0-35.[address] [facility] Comment on above: Performed By: #### 6100, 14535 #### [facility] [address] [facility] [place] [address], [facility] MCV (RBC) [Entitic vol] 84.4 fL Normal 82.0-98.[address] [facility] Comment on above: Performed By: #### 5 6100, 26641 #### [facility] [address] [facility] [address], [facility] Nucleated RBC/100 WBC (Bld) [Ratio] 0 % Normal 0-[address] [facility] Comment on above: Performed By: #### 5 6100, 61890 #### [facility] [address] [facility] [place] [address], [facility] PLAT CNT 232 10*3/uL Normal 150-[address] [facility] Comment on above: Performed By: #### 5 6100, 81510 #### [facility] [address] [place] [address], [facility] RBC (Bld) [#/Vol] 4.81 10*6/uL Normal 4.20-5.[address] [facility] Comment on above: Performed By: #### 5 6101, 66698 #### [facility] [address] [facility] [address], [facility] WBC (Bld) [#/Vol] 7.53 10*3/uL Normal 4.00-10.[address] [facility] Comment on above: Performed By: #### 5 6101, 74122 #### [facility] [address] [facility] [address], [facility] CHEST AND LATERALon 11-22-[address] [facility] Department of Radiology [address] [place] [address] [id number] Patient Name: YOLI ANTUNEZ : 1955 Sex: M Age: Race: White Pt. Location: OUTP Patient Status: O Ordered Date: 11/21/2021 11:05:00 AM Completed Date: 11/21/2021 11:09 AM Requesting Provider: SHAYE PALMER Attending Provider: SHAYE PALMER Report Copy To: Signs & Symptoms: PA/LAT chest x-ray History: Comments: A-Fib, cardiac size Exam: CHEST AND LATERAL CHEST AND LATERAL CLINICAL INDICATION: A. Fib. COMPARISON: 08/29/2020. IMPRESSION: 1. Likely some subtle lung base atelectasis without focal opacity or significant pleural effusion. 2. Unchanged cardiac mediastinal silhouette. Left chest wall loop recorder device. Electronically signed: Danilo Bhandari. Transcribed by: [email or web address], User Resident: Electronically Signed by: DANILO BHANDARI @ 11/21/2021 11:[address] [facility] Comment on above: Order Comment: No: D o not add to previous draw Covid-19 PCR (CVDTB)on 10-21 SARS-CoV-2 (COVID-19) RNA MIKE+probe Ql (Unsp spec) Not detected Normal NOT DETECTED [facility] Comment on above: Result Comment: This test is not yet approved or cleared by the [place] FDA. When there are no FDA-approved or cleared tests available, and other criteria are met, FDA can make tests available under an emergency access mechanism called an Emergency Use Authorization (EUA). The EUA for this test is supported by the [place] of Health and Human Service's (HHS's) declaration that circumstances exist to justify the emergency use of in vitro diagnostics for the detection and/or diagnosis of the virus that causes COVID-19. This EUA will remain in effect (meaning this test can be used) for the duration of the COVID-19 declaration justifying emergency of IVDs, unless it is terminated or revoked by FDA (after which the test may no longer be used). When diagnostic testing is negative, the possibility of a false negative should be considered in the context of a patient's recent exposures and the presence of clinical signs and symptoms consistent with SARS-CoV-2. Performed By: #### [facility] ####[facility] [address] [place], [place] [address]Xl. Kulwant Brennan Cardiovascular Lab Reporton 11-09-2021 Cardiovascular Lab Report [facility] Patient Name: [facility] Mak Peoples MR #: [id number] Department of Physician: Lalito Joshi MD Medicine Service Date: 11/09/2021 Division of Birthdate: 1955 Cardiology Room #: Adult Cardiovascular Services [facility] [address] [address] Cardiovascular Laboratory Report LOOP IMPLANT PROCEDURE NOTE DATE OF PROCEDURE: 11/09/21 PERFORMING PHYSICIAN: Dr. Lalito Joshi/ Dr Judi Garcia INDICATIONS FOR PROCEDURE: 1. AF surveillance CONSENT: Patient LOCATION: PROCEDURAL SEDATION: None FLUOROSCOPY TIME: 0min PREPARATION: Preoperative antibiotics was administered. EBL:0cc PROCEDURES PERFORMED: 1. LOOP implant PROCEDURE NOTE: 66-year-old gentleman, who has had multiple prior ablations for both atrial flutter and AFib, who had persistent palpitations. Thus far, evaluation has shown only sinus rhythm and given his persistent symptoms, the decision was made to proceed with a loop monitor to plan on further treatment therapy. Patient was brought to the EP lab in the post absorptive state. A procedural pause was performed verifying the patient, the procedure. Sterile prep and drape were performed over the left precordium and anesthesia with 1% lidocaine was followed by a small incision was made in the 3rd intercostal space near the sternum on the left using the [employer] tool. The loop recorder was then injected subcutaneously and noted to have good sensing parameters. Technical details of the device as noted below. The skin was then closed with 3-0 absorbable monofilament suture and glue applied to hold the edges together. Tegaderm was applied to cover the wound. The patient appeared to tolerate the procedure well and was returned to the room in stable condition. No complications were immediately observed. LOOP details: Device Model: M301 Serial#: [id number] Sensin.16mV. IMPRESSION: Successful placement of LOOP implant with excellent sensing parameters. RECOMMENDATIONS: 1. Occlusive dressing to be changed after 7 days. 2. Do not wet the incision. Lalito Joshi MD Cardiac Electrophysiology. Electronically Signed by: Lalito Joshi MD 11/10/2021 11:10 A Lalito Joshi MD Date Dict: 11/09/2021/08:45 A/Lalito Joshi MD Date Trans: 11/09/2021 11:32 A/liliane [id number] cc: Radha Burris M.D. [address] [facility] [address] [facility] POC SARS COV2 IDon 2 SARS-CoV-2 (COVID-19) RNA MIKE+probe Ql (Unsp spec) Negative Normal NEGATIVE [facility] Comment on above: Result Comment: ID N OW COVID-19 assay performed on the ID NOW Instrument is a rapid molecular in vitro diagnostic test utilizing an isothermal nucleic acid amplification technology intended for the qualitative detection of nucleic acid from the SARS-CoV-2 virus in direct anterior nasal (nasal), nasopharyngeal or throat swabs from individuals who are suspected of COVID-19 by their healthcare provider within the first seven days of the onset of symptoms. Testing is limited to laboratories certified under the Clinical Laboratory Improvement Amendments of 1988 (CLIA), 42 U.S.C. ???263a,that meet the requirements to perform high, moderate, or waived complexity tests. The ID NOW COVID-19 assay is also authorized for use at the Point of Care (POC), i.e., in patient care settings operating under a CLIA Certificate of Waiver, Certificate of Compliance, or Certificate of Accreditation. Performed By: #### 5 6101, 52285 #### [facility] [address] [place] [address], [facility] BNPon 10-03-2021 Natriuretic peptide B (Bld) [Mass/Vol] 75.0 pg/mL Normal <=900.0 [facility] Comment on above: Performed By: #### H STROPN #### [facility] [address] [place] [address] Dr. Kulwant Brennan CARDIAC MAYELIN ADMITon 022 CK [Catalytic activity/Vol] 142 U/L Normal 39-308 [facility] Comment on above: Performed By: #### H STROPN #### [facility] [address] [address] [address] Kulwant Brennan CK.MB [Mass/Vol] 1.15 ng/mL Normal <=3.60 [facility] Comment on above: Performed By: #### H STROPN #### [facility] [address] [place] [address] Dr. Kulwant Brennan HSTROP 4.0 pg/mL Normal 4.0-76.1 [facility] Comment on above: Result Comment: CUT- OFF POINTS HAVE BEEN ESTABLISHED BASED ON THE FOURTH UNIVERSAL DEFINITIONS OF MYOCARDIAL INFARCTION. THE UPPER REFERENCE LIMIT (URL) OF TROPONIN, DEFINED THE 99TH PERCENTILE OF cTnI DISTRIBUTION IN A REFERENCE POPULATION, HAS BEEN CONFIRMED THE DECISION THRESHOLD FOR [place] DIAGNOSIS. Performed By: #### H STROPN #### [facility] [address] [place] [address] Dr. Kulwant Brennan EFRAIN 57 ng/mL Normal 16-96 [facility] Comment on above: Performed By: #### H STROPN #### [facility] [address] [place] [address] Dr. Kulwant Brennan CBC AUTO DIFFon 10-03-2021 BASO # 0.0 103/ul Normal 0.0-0.1 [facility] Comment on above: Performed By: #### H STROPN #### [facility] [address] [place] [address] Dr. Kulwant Brennan Basophils/100 WBC (Bld) 0.4 % Normal 0.2-2.0 [facility] Comment on above: Performed By: #### H STROPN #### [facility] [address] [place] [address] Dr. Kulwant Brennan EO # 0.2 103/ul Normal 0.0-0.7 [facility] Comment on above: Performed By: #### H STROPN #### [facility] [address] [place] [address] Dr. Kulwant Brennan Eosinophils/100 WBC (Bld) 2.6 % Normal 0.9-7.0 [facility] Comment on above: Performed By: #### H STROPN #### [facility] [address] [place] [address] Dr. Kulwant Brennan Erythrocyte distribution width (RBC) [Ratio] 14.6 % Normal 11.0-15.0 [facility] Comment on above: Performed By: #### H STROPN #### [facility] [address] [place] [address] Dr. Kulwant Brennan Hematocrit (Bld) [Volume fraction] 43.0 % Normal 42.0-54.0 [facility] Comment on above: Performed By: #### H STROPN #### [facility] [address] [place] [address] Dr. Kulwant Brennan Hemoglobin (Bld) [Mass/Vol] 13.6 g/dL Critically low 14.0-18.0 [facility] Comment on above: Performed By: #### H STROPN #### [facility] [address] [place] [address] Dr. Kulwant Brennan IG # 0.03 10e3/ul Normal 0.00-0.03 [facility] Comment on above: Performed By: #### H STROPN #### [facility] [address] [place] [address] Dr. Kulwant Brennan IG % 0.4 % Normal 0.0-0.5 [facility] Comment on above: Performed By: #### H STROPN #### [facility] [address] [place] [address] Dr. Kulwant Brennan LYMPH # 1.8 103/ul Normal 1.2-3.8 [facility] Comment on above: Performed By: #### H STROPN #### [facility] [address] [place] [address] Dr. Kulwant Brennan Lymphocytes/100 WBC (Bld) 25.3 % Normal 20.5-60.0 [facility] Comment on above: Performed By: #### H STROPN #### [facility] [address] [place] [address] Dr. Kulwant Brennan MANUAL DIFF REQ NO Normal [facility] Comment on above: Performed By: #### H STROPN #### [facility] [address] [place] [address] Dr. Kulwant Brennan MCH (RBC) [Entitic mass] 27.1 pg Normal 25.9-34.0 [facility] Comment on above: Performed By: #### H STROPN #### [facility] [address] [place] [address] Dr. Kulwant Brennan MCHC (RBC) [Mass/Vol] 31.6 g/dL Normal 29.9-35.2 [facility] Comment on above: Performed By: #### H STROPN #### [facility] [address] [address] [address] Kulwant Brennan MCV (RBC) [Entitic vol] 85.8 fL Normal 80.0-94.0 [facility] Comment on above: Performed By: #### H STROPN #### [facility] [address] [address] [address] Kulwant Brennan MONO # 0.8 103/ul Normal 0.3-0.8 [facility] Comment on above: Performed By: #### H STROPN #### [facility] [address] [place] [address] Dr. Kulwant Brennan Monocytes/100 WBC (Bld) 11.9 % Normal 1.7-12.0 [facility] Comment on above: Performed By: #### H STROPN #### [facility] [address] [place] [address] Dr. Kulwant Brennan NEUT # 4.1 103/ul Normal 1.4-6.5 [facility] Comment on above: Performed By: #### H STROPN #### [facility] [address] [place] [address] Dr. Kulwant Brennan Neutrophils/100 WBC (Bld) 59.4 % Normal 43.0-75.0 [facility] Comment on above: Performed By: #### H STROPN #### [facility] [address] [place] [address] Dr. Kulwant Brennan Platelet mean volume (Bld) [Entitic vol] 9.8 fL Normal 9.5-13.5 [facility] Comment on above: Performed By: #### H STROPN #### [facility] [address] [place] [address] Dr. Kulwant Brennan PLT 201 103/ul Normal 150-450 [facility] Comment on above: Performed By: #### H STROPN #### [facility] [address] [place] [address] Dr. Kulwant Brennan RBC 5.01 106/ul Normal 4.70-6.10 [facility] Comment on above: Performed By: #### H STROPN #### [facility] [address] [place], [place] [address] Dr. Kulwant Brennan WBC 7.0 103/ul Normal 4.0-11.0 [facility] Comment on above: Performed By: #### H STROPN #### [facility] [address] [id number] Kulwant Brennan CT HEAD WO CONon 10-03-2021 CT HEAD WO CON EXAMINATION: CT HEAD WO CON HISTORY: Dizziness , chest pain COMPARISON: CT head without contrast 08/29/2020 TECHNIQUE: Axial CT images were obtained without IV contrast. Dose reduction techniques were achieved by using automated exposure control and/or adjustment of mA and/or kV according to patient size and/or use of iterative reconstruction technique. FINDINGS: BRAIN: Stable old lacunar infarction within left basal ganglia. No edema, hemorrhage, mass, acute infarction, or inappropriate atrophy. CSF SPACES: No hydrocephalus, subarachnoid hemorrhage, or mass. Appropriate for age. SKULL: No fracture, mass, or other significant visible lesion. SINUSES: No significant mucosal thickening or fluid on the limited views. ORBITS: No acute abnormality on the limited views. OTHER: Negative IMPRESSION: 1. No intracranial hemorrhage, mass, or appreciable acute abnormality. 2. Stable age related mild chronic changes. Electronically authenticated by: DONNELL DU Date: 2021-10-03 11:41 Normal [facility] CTA CHEST WO W CONon 022 CTA CHEST WO W CON EXAMINATION: CTA SALMA ST WO W CON HISTORY: CHEST PAIN, UNSPECIFIED , dizziness COMPARISON: CTA chest 09/23/2011 TECHNIQUE: Multi-planar CT images were created with IV contrast. Axial, Coronal, and Sagittal images. Dose reduction techniques were achieved by using automated exposure control and/or adjustment of mA and/or kV according to patient size and/or use of iterative reconstruction technique. 3-D reconstruction was performed on a separate workstation. FINDINGS: VASCULATURE: No pulmonary embolism or abnormal opacity. LUNGS: Mild bronchiectasis within the lower lobes. Trace amount of atelectasis within the dependent lung regions. Large calcified granuloma within anterior right upper lobe. PLEURA: No mass, effusion, or pneumothorax. TUTU: No mass or adenopathy. MEDIASTINUM: No mass or adenopathy. CARDIAC: No enlargement, pericardial effusion, or pericardial thickening. AORTA: No aneurysm or dissection. CHEST WALL: No mass or axillary adenopathy. BONES: No bone lesion or fracture. LIMITED ABDOMEN: Large hiatal hernia. Limited images of the upper abdomen. OTHER: Negative. IMPRESSION: 1. No pulmonary embolism. 2. No acute infiltrates or suspicious findings. Mild bronchiectasis within lower lobes. 3. Large hiatal hernia. Electronically authenticated by: DONNELL DU Date: 2021-10-03 11:50 Normal [facility] ER URINE PROFILEon 2 Bilirubin Ql (U) Negative Normal NEGATIVE [facility] Comment on above: Performed By: #### H STROPN #### [facility] [address] [place] [address] Dr. Kulwant Brennan Clarity (U) CLEAR Normal CLEAR [facility] Comment on above: Performed By: #### H STROPN #### [facility] [address] [place] [address] Dr. Kulwant Brennan Color (U) LT. YELLOW Normal YELLOW [facility] Comment on above: Performed By: #### H STROPN #### [facility] [address] [place] [address] Dr. Kulwant Brennan ERUSOPHIAD A micrscopic examina tion will be performed if indicated. Normal [facility] Comment on above: Performed By: #### H STROPN #### [facility] [address] [address] [address] Kulwant Brennan Glucose Ql (U) Negative Normal NEGATIVE [facility] Comment on above: Performed By: #### H STROPN #### [facility] [address] [address] [address] Kulwant Brennan Hemoglobin Ql (U) Negative Normal NEGATIVE [facility] Comment on above: Performed By: #### H STROPN #### [facility] [address] [place] [address] Dr. Kulwant Brennan Ketones Ql (U) Negative Normal NEGATIVE [facility] Comment on above: Performed By: #### H STROPN #### [facility] [address] [place] [address] Dr. Kulwant Brennan LEUKOCYTES Negative Normal NEGATIVE [facility] Comment on above: Performed By: #### H STROPN #### [facility] [address] [place] [address] Dr. Kulwant Brennan Nitrite Ql (U) Negative Normal NEGATIVE [facility] Comment on above: Performed By: #### H STROPN #### [facility] [address] [place] [address] Dr. Kulwant Brennan pH (U) 5.5 [pH] Normal 5-9 [facility] Comment on above: Performed By: #### H STROPN #### [facility] [address] [place] [address] Dr. Kulwant Brennan SPEC GRAVITY 1.025 Normal 1.005-<=1. 025 [facility] Comment on above: Performed By: #### H STROPN #### [facility] [address] [place] [address] Dr. Kulwant Brennan UA PROTEIN Negative Normal NEGATIVE/ TRACE [facility] Comment on above: Performed By: #### H STROPN #### [facility] [address] [place] [address] Dr. Kulwant Brennan UR MICRO IND NOT INDICATED Normal [facility] Comment on above: Performed By: #### H STROPN #### [facility] [address] [place] [address] Dr. Kulwant Brennan Urobilinogen Qn (U) 0.2 {Luis'U}/dL Normal 0.2 - 1. 0 [facility] Comment on above: Performed By: #### H STROPN #### [facility] [address] [place] [address] Dr. Kulwant Brennan PROF 14(COMP METB)on 022 Albumin [Mass/Vol] 3.9 g/dL Normal 3.4-5.0 [facility] Comment on above: Performed By: #### H STROPN #### [facility] [address] [place] [address] Dr. Kulwant Brennan Albumin/Globulin [Mass ratio] 1.0 {ratio} Normal [facility] Comment on above: Performed By: #### H STROPN #### [facility] [address] [place] [address] Dr. Kulwant Brennan ALP [Catalytic activity/Vol] 59 U/L Normal 46-116 [facility] Comment on above: Performed By: #### H STROPN #### [facility] [address] [place] [address] Dr. Kulwant Brennan ALT [Catalytic activity/Vol] 30 U/L Normal 16-63 [facility] Comment on above: Performed By: #### H STROPN #### [facility] [address] [place] [address] Dr. Kulwant Brennan Anion gap [Moles/Vol] 13.4 mmol/L Normal [facility] Comment on above: Performed By: #### H STROPN #### [facility] [address] [place] [address] Dr. Kulwant Brennan AST [Catalytic activity/Vol] 14 U/L Critically low 15-37 [facility] Comment on above: Performed By: #### H STROPN #### [facility] [address] [place] [address] Dr. Kulwant Brennan Bilirubin [Mass/Vol] 0.6 mg/dL Normal 0.2-1.0 [facility] Comment on above: Performed By: #### H STROPN #### [facility] [address] [place] [address] Dr. Kulwant Brenann Calcium [Mass/Vol] 7.6 mg/dL Critically low 8.5-10.1 [facility] Comment on above: Performed By: #### H STROPN #### [facility] [address] [place] [address] Dr. Kulwant Brennan Chloride [Moles/Vol] 107 mmol/L Normal 98-107 [facility] Comment on above: Performed By: #### H STROPN #### [facility] [address] [place] [address] Dr. Kulwant Brennan CO2 [Moles/Vol] 24.4 mmol/L Normal 21.0-32.0 [facility] Comment on above: Performed By: #### H STROPN #### [facility] [address] [address] [address] Kulwant Brennan Creatinine [Mass/Vol] 1.36 mg/dL Critically high 0.70-1.30 [facility] Comment on above: Performed By: #### H STROPN #### [facility] [address] [address] [address] Kulwant Brennan EGFR-AF EMIRATI >60 Normal >=60 [facility] Comment on above: Performed By: #### H STROPN #### [facility] [address] [address] [address] Kulwant Brennan EGFR-NON AF EMIRATI 52 mL/min/1.73m2 Critically low >=60 [facility] Comment on above: Performed By: #### H STROPN #### [facility] [address] [address] [address] Kulwant Brennan Globulin (S) [Mass/Vol] 3.8 g/dL Normal [facility] Comment on above: Performed By: #### H STROPN #### [facility] [address] [address] [address] Kulwant Brennan Glucose [Mass/Vol] 99 mg/dL Normal 74-106 [facility] Comment on above: Performed By: #### H STROPN #### [facility] [address] [address] [address] Kulwant Brennan Potassium [Moles/Vol] 3.8 mmol/L Normal 3.5-5.1 [facility] Comment on above: Performed By: #### H STROPN #### [facility] [address] [address] [address] Kulwant Brennan Protein [Mass/Vol] 7.7 g/dL Normal 6.4-8.2 [facility] Comment on above: Performed By: #### H STROPN #### [facility] [address] [address] [address] Kulwant Brennan Sodium [Moles/Vol] 141 mmol/L Normal 136-145 [facility] Comment on above: Performed By: #### H STROPN #### [facility] [address] [address] [address] Kulwant Brennan Urea nitrogen [Mass/Vol] 24.0 mg/dL Critically high 7.0-18.0 [facility] Comment on above: Performed By: #### H STROPN #### [facility] [address] [address] [address] Kulwant Brennan Urea nitrogen/Creatinine [Mass ratio] 17.6 mg/mg Normal [facility] Comment on above: Performed By: #### H STROPN #### [facility] [address] [address] [address] Kulwant Brennan PROTIMEon 10-03-2021 INR Coag (PPP) [Relative time] 1.04 {INR} Normal [facility] Comment on above: Performed By: #### P T, PTT ####[facility] [address] [address]Dr. Kulwant Brennan INR GUIDELINES SEE BELOW Normal [facility] Comment on above: Result Comment: HAYDEE RED INR: 2.0 - 3.0 CONDITIONS NOT LISTED BELOW 2.5 - 3.5 FOR PROSTHETIC HEART VALVE REPLACEMENT 2.5 - 3.5 RECURRENT THROMBOSIS Performed By: #### P T, PTT ####[facility] [address] [address]DrAmarjit Brennan PT Coag (PPP) [Time] 11.2 s Normal 9.0-11.6 [facility] Comment on above: Performed By: #### P T, PTT ####[facility] [address] [address]Dr. Kulwant Brennan PTTon 10-03-2021 aPTT Coag (Bld) [Time] 33.1 s Normal 22.3-36.2 [facility] Comment on above: Performed By: #### P T, PTT ####[facility] [address] [address]DrAmarjit Brennan TROPONIN, HIGH SENSITIVITYon 10-03-2021 HSTROP 5.1 pg/mL Normal 4.0-76.1 [facility] Comment on above: Result Comment: CUT- OFF POINTS HAVE BEEN ESTABLISHED BASED ON THE FOURTH UNIVERSAL DEFINITIONS OF MYOCARDIAL INFARCTION. THE UPPER REFERENCE LIMIT (URL) OF TROPONIN, DEFINED THE 99TH PERCENTILE OF cTnI DISTRIBUTION IN A REFERENCE POPULATION, HAS BEEN CONFIRMED THE DECISION THRESHOLD FOR [place] DIAGNOSIS. Performed By: #### H STROPN #### [facility] [address], [place] [address] Dr. Kulwant Brennan VC VENOUS REFLUX RIOS LMTon 0 10-03-2021 VC VENOUS REFLUX RIOS LMT Patient: YOLI ANTUNEZ Exam Date: 10/03/2021 : 1955 Gender:M Ordering : YANDEL SHEN Admission #: [id number] Family : Order #: [id number] CLICK HERE TO VIEW EXAM RADIOLOGY REPORT PROCEDURE: VEIN CENTER ULTRASOUND VENOUS REFLUX BILATERAL LIMTED COMPARISON: None. INDICATIONS: Pain in right leg m79.604 TECHNIQUE: Duplex imaging of the lower extremity to assess the deep and superficial venous system for the presence of deep or superficial venous incompetence and to document the location and severity of disease. The study includes evaluation of the great saphenous vein (GSV), anterior accessory saphenous vein (AASV) and small saphenous vein (SSV). Patient scanned in reverse Trendelenburg and standing. FINDINGS: RIGHT LOWER EXTREMITY: Saphenofemoral Junction Reflux: Yes 11.7mm 0.81 sec GSV: Diam (mm) Reflux/ Time (sec) Proximal Thigh 7.9 No Mid Thigh 4.2 No Distal Thigh 4.6 No Prox Calf 3.1 No Mid Calf 3.9 No Saphenopopliteal Junction Reflux: 6.8mm No SSV: Proximal Calf 2.9 No Mid Calf 3.2 No AASV: Not present Proximal Thigh Mid Thigh Distal Thigh Thrombi: No acute or chronic thrombus visualized at this time. Compressibility: Normal Flow: Normal Preforator: Dist/med measures 2.8mm, without reflux Tech Note: Incompentent SFJ and compentent SPJ. Patent varicose vein mid/med LL that measures 2.3mm, with no reflux. Varicose vein prox/posterior LL that measures 5.9mm without reflux. Varicose vein dist/med thigh measures 3.7mm without reflux. LEFT LOWER EXTREMITY: Saphenofemoral Junction Reflux: No 10.6 mm sec GSV: Diam (mm) Reflux/Time (sec) Proximal Thigh 9.5 No Mid Thigh 5.6 No Distal Thigh 5.6 No Prox Calf 4.9 No Mid Calf 4.1 No Saphenopopliteal Junction Relux: 6.6 mm No SSV: Proximal Calf 2.7 No Mid Calf 2.3 No AASV: Proximal Thigh 2.9 No Mid Thigh Distal Thigh Thrombi: No acute or chronic thrombus visualized Compressibility: Normal Flow: Normal Rod Finisher: Dist/med off PTV 2 mm, 0s reflux; mid/med 2.6mm, 0s reflux; dist/med off arabella to PTV 2.2mm, 0s reflu Tech Note: Competent SFJ and SPJ. Varicose vein prox/med LL 2.5mm without reflux. Varicose vein prox/ant 2.7mm without reflux. Varicose vein mid thigh without reflux. CONCLUSION: 1. No significantly dilated or incompetent superficial veins within the right or left lower extremity. Dictated by: Donnell Du M.D. on 10/04/2021 at 12:06 Approved by: Donnell Du M.D. on 10/04/2021 at 12:09 Normal [facility] XR CHEST 1 Von 10-03-2021 XR CHEST 1 V EXAM: XR CHEST 1 V a t 1037 hours HISTORY: CHEST PAIN, UNSPECIFIED COMPARISON: 08/29/2020 TECHNIQUE: AP upright portable chest x-ray FINDINGS: The heart is not enlarged and the vasculature is not distended. No acute infiltrate, effusion or pneumothorax is identified. The osseous structures are grossly intact. IMPRESSION: No acute infiltrate or evidence of cardiac decompensation. The overall appearance of the chest is essentially unchanged. Electronically authenticated by: LUZ ELENA EMERY Date: 2021-10-03 13:00 Normal [facility] ANAon 09-29-2021 KYLE PATTERN NUCLEOLAR Normal The [facility] Comment on above: Result Comment: The KHALIDA IFA KYLE Hep-2 test utilizes the indirect fluorescent antibody (IFA) method that has been used extensively for detecting the presence of KYLE in sera of patients with systemic lupus erythematosus (SLE), and other clinically similar connective tissue disorders. In addition, KYLE may be associated with numerous drug-induced lupus syndromes which clinically mimic the spontaneous form of SLE. Positive KYLE may be found in healthy individuals. It is therefore imperative that KYLE results be interpreted in light of the patients clinical condition by medical authority. Performed By: #### 1 0196 #### [facility] [address] KYLE SCREEN 1:40 Normal <1:40,1:[address] [facility] Comment on above: Result Comment: Test performed using KHALIDA IFA KYLE Hep-2 Test, a pre-standardized assay designed for the qualitative and semi-quantitative detection of antinuclear antibodies. Performed By: #### 1 0196 #### [facility] [address] C REACTIVE PROTEINon 022 CRP [Mass/Vol] 3.1 mg/L Normal 0.0-7.[address] [facility] Comment on above: Performed By: #### 5 6101, [id number] #### [facility] [address] CYCLIC CITRULLINATED PEPTIDE AB [id number] 09-29-2021 CYCLIC CIT PEP 4 Units Normal 0-[address] [facility] Comment on above: Result Comment: INTE RPRETIVE INFORMATION: Cyclic Citrullinated Peptide Antibody, IgG 19 Units or less ................... Negative 20-39 Units ........................ Weak Positive 40-59 Units ........................ Moderate Positive 60 Units or greater ................ Strong Positive Anti-cyclic citrullinated peptide (anti-CCP), IgG antibodies are present in about 69-83 percent of patients with rheumatoid arthritis (RA) and have specificities of 93-95 percent. These autoantibodies may be present in the preclinical phase of disease, are associated with future RA development, and may predict radiographic joint destruction. Patients with weak positive results should be monitored and testing repeated. Performed By: [employer] [address] [place] [id number] [employer] Supervisor: Jaz Villareal MD RHEUMATOID FACTOR SERUMon RA <20 Normal 0-20 [facility] Comment on above: Performed By: #### 5 6101, [id number] #### [facility] [address] [place] [address], [facility] SEDIMENTATION RATEon SED RATE 12 mm/hr High 0-[address] [facility] Comment on above: Performed By: #### 5 6506 #### [facility] [address] [place] [address], [facility] US ANDREW DOP LEG BILon US ANDREW DOP LEG RIOS EXAMINATION: US ANDREW DOP LEG RIOS HISTORY: Pain in right leg COMPARISON: No relevant comparison available. TECHNIQUE: Grayscale and color ultrasound FINDINGS: Region: Bilateral legs Thrombus: None Flow: Normal Compressibility: Normal Augmentation: Normal IMPRESSION: No deep or superficial vein thrombus in the legs *Exam performed in accordance with AIUM practice guidelines- Peripheral venous ultrasound, July 16, 2009. Electronically authenticated by: ERICK DEL ANGEL Date: 2021-09-27 16:12 Normal [facility] CT Head or Brain w/o Contras t*on 09-11-2021 CT Head or Brain w/o Contrast* HISTORY: Aphasia. Left eye droop. COMPARISON: None available. TECHNIQUE: Multiple axial images of the head/brain were obtained without contrast enhancement. Coronal reformats were acquired at the CT console. All CT scans at this facility use dose modulation, iterative reconstruction, and/or weight based dosing when appropriate to reduce radiation dose to as low as reasonably achievable. FINDINGS: Brain volume is age-appropriate. Ventricular morphology is within normal limits. Liriano-white matter differentiation is maintained. No acute hemorrhage or abnormal extra-axial fluid collection. No mass-effect or midline shift. The visualized paranasal sinuses and mastoid air cells are clear. Calvarium is intact. IMPRESSION: No acute intracranial process. Report reported and signed by Hollis Cadet on 09/11/2021 1546 Normal [facility] [place] [employer] Comprehensive Metabolic Pane julian 06-27-2021 Albumin [Mass/Vol] 4.9 g/dL Normal 3.6-5.1 Diane [facility] [employer] Comment on above: Performed By: #### C MP #### [facility] [address], [place] [id number] Albumin/Globulin [Mass ratio] 1.8 {ratio} Normal 1.0-2.5 [facility] Comment on above: Performed By: #### C MP #### [facility] [address], [place] [id number] ALP [Catalytic activity/Vol] 83 U/L Normal 40-129 [facility] Comment on above: Performed By: #### C MP #### [facility] [address], [place] [id number] ALT [Catalytic activity/Vol] 20 U/L Normal 9-46 [facility] Comment on above: Result Comment: 03/22 Female reference range changed. Performed By: #### C MP #### [facility] [address], [place] [id number] Anion gap [Moles/Vol] 18 mmol/L Normal 12-20 [facility] Comment on above: Result Comment: Effe ctive 04/27/2019 reference range changed. Performed By: #### C MP #### [facility] [address], [place] [id number] AST [Catalytic activity/Vol] 18 U/L Normal 10-40 [facility] Comment on above: Performed By: #### C MP #### [facility] [address], [place] [id number] Bilirubin [Mass/Vol] 0.33 mg/dL Normal 0.30-1.20 [facility] Comment on above: Performed By: #### C MP #### [facility] [address], [place] [id number] BUN/CREA 20 Ratio Normal 6-22 [facility] [employer] Comment on above: Performed By: #### C MP #### [facility] [address], [place] [id number] Calcium [Mass/Vol] 8.4 mg/dL Low 8.6-10.2 [facility] [employer] Comment on above: Performed By: #### C MP #### [facility] [address], [place] [id number] Chloride [Moles/Vol] 106 mmol/L Normal 98-107 [facility] Comment on above: Performed By: #### C MP #### [facility] [address], [place] [id number] CO2 [Moles/Vol] 24 mmol/L Normal 20-31 [facility] Comment on above: Performed By: #### C MP #### [facility] [address], [place] [id number] Creatinine [Mass/Vol] 1.4 mg/dL Normal 0.7-1.4 [facility] Comment on above: Performed By: #### C MP #### [facility] [address], [place] [id number] eGFRAA 59 mL/min/1.73m2 Low >60 [facility] Comment on above: Performed By: #### C MP #### [facility] [address], [place] [id number] eGFRNAA 49 mL/min/1.73m2 Low >60 [facility] Comment on above: Performed By: #### C MP #### [facility] [address], [place] [id number] Globulin (S) [Mass/Vol] 2.7 g/dL Normal 1.9-3.7 [facility] Comment on above: Performed By: #### C MP #### [facility] [address], [place] [id number] Glucose [Mass/Vol] 98 mg/dL Normal 65-99 [facility] Comment on above: Result Comment: For FASTING Glucose --- ADA reference ranges: Normal 65-99 mg/dl Prediabetes 100-125 Diabetes >/= 126 Performed By: #### C MP #### [facility] [address], [place] [id number] Potassium [Moles/Vol] 5.0 mmol/L Normal 3.5-5.5 [facility] Comment on above: Performed By: #### C MP #### [facility] [address], [place] [id number] Protein [Mass/Vol] 7.6 g/dL Normal 6.1-8.1 [facility] [employer] Comment on above: Performed By: #### C MP #### [facility] [address], [place] [id number] Sodium [Moles/Vol] 143 mmol/L Normal 135-146 Diane garcia [place] [employer] Comment on above: Performed By: #### C MP #### [facility] [address], [place] [id number] Urea nitrogen [Mass/Vol] 30 mg/dL High 7-25 [facility] [employer] Comment on above: Performed By: #### C MP #### [facility] [address], [place] [id number] Magnesiumon 06-07-2021 Magnesium [Mass/Vol] 2.0 mg/dL Normal 1.5-2.3 [facility] [employer] Comment on above: Performed By: #### V ITD, MG, PHOS #### [facility] [address], [place] [id number] Parathyroid Hormone, Intacto n 06-07-2021 PTH 12.53 pg/mL Low 16.00-65.0 0 [facility] [employer] Comment on above: Performed By: #### P TH* #### [facility] [address], [place] [id number] Phosphoruson 06-07-2021 Phosphate [Mass/Vol] 4.3 mg/dL Normal 2.2-4.4 [facility] [employer] Comment on above: Performed By: #### V ITD, MG, PHOS #### [facility] [address], [place] [id number] Q - CALCIUM,IONIZEDon 2021 CALCIUM, IONIZED 4.0 mg/dL Low 4.8-5.6 [facility] [employer] Comment on above: Order Comment: [facility] performed at: Q[facility], [employer] [facility], [address], [address] [facility], [place], [address], [employer] Supervisor: Janes Vasquez MDQuest Collection Date/Time: [id number] Results Received Date/Time: [id number] Reported Date/Time: Performed By: #### C MP, CBCAD, TSH #### [facility] [address], [place] [id number] Vitamin D 25-OHon 06-07-2021 VIT D 25 OH 27 ng/ml Low >29 [facility] [employer] [facility] Comment on above: Result Comment: Merlene min D Status Deficiency <20 ng/mL Insufficiency 20-29 ng/mL Optimal 30-100 ng/mL Possible Toxicity >=150 ng/mL Performed By: #### V ITD, MG, PHOS #### [facility] [address], [place] [id number] Complete Blood Count with Au to Diffon 06-06-2021 Basophils (Bld) [#/Vol] 0.04 10*3/uL Normal 0.00-0.20 [facility] [employer] Comment on above: Performed By: #### C MP, CBCAD, TSH #### [facility] [address], [place] [id number] Basophils/100 WBC (Bld) 0.6 % Normal [facility] Comment on above: Performed By: #### C MP, CBCAD, TSH #### [facility] [address], [place] [id number] Eosinophils (Bld) [#/Vol] 0.28 10*3/uL Normal 0.02-0.50 [facility] [employer] [facility] Comment on above: Performed By: #### C MP, CBCAD, TSH #### [facility] [address], [place] [id number] Eosinophils/100 WBC (Bld) 4.1 % Normal [facility] Comment on above: Performed By: #### C MP, CBCAD, TSH #### [facility] [address], [place] [id number] Erythrocyte distribution width (RBC) [Ratio] 14.5 % Normal 11.0-15.0 [facility] Comment on above: Performed By: #### C MP, CBCAD, TSH #### [facility] [address], [place] [id number] Hematocrit (Bld) [Volume fraction] 43.0 % Normal 38.5-50.0 [facility] Comment on above: Performed By: #### C MP, CBCAD, TSH #### [facility] [address], [place] [id number] Hemoglobin (Bld) [Mass/Vol] 13.7 g/dL Normal 13.0-17.1 [facility] Comment on above: Performed By: #### C MP, CBCAD, TSH #### [facility] [address], [place] [id number] Lymphocytes (Bld) [#/Vol] 1.6 10*3/uL Normal 0.9-3.9 [facility] Comment on above: Performed By: #### C MP, CBCAD, TSH #### [facility] [address], [place] [id number] Lymphocytes/100 WBC (Bld) 22.6 % Normal [facility] Comment on above: Performed By: #### C MP, CBCAD, TSH #### [facility] [address], [place] [id number] MCH (RBC) [Entitic mass] 26.1 pg Low 27.0-33.0 [facility] Comment on above: Performed By: #### C MP, CBCAD, TSH #### [facility] [address], [place] [id number] MCHC (RBC) [Mass/Vol] 31.9 g/dL Low 32.0-36.0 [facility] Comment on above: Performed By: #### C MP, CBCAD, TSH #### [facility] [address], [place] [id number] MCV (RBC) [Entitic vol] 82 fL Normal 80-100 [facility] Comment on above: Performed By: #### C MP, CBCAD, TSH #### [facility] [address], [place] [id number] Monocytes (Bld) [#/Vol] 0.7 10*3/uL Normal 0.2-0.9 [facility] Comment on above: Performed By: #### C MP, CBCAD, TSH #### [facility] [address], [place] [id number] Monocytes/100 WBC (Bld) 10.1 % Normal [facility] Comment on above: Performed By: #### C MP, CBCAD, TSH #### [facility] [address], [place] [id number] Neutrophils (Bld) [#/Vol] 4.3 10*3/uL Normal 1.5-7.8 [facility] Comment on above: Performed By: #### C MP, CBCAD, TSH #### [facility] [address], [place] [id number] Neutrophils/100 WBC (Bld) 62.0 % Normal [facility] Comment on above: Performed By: #### C MP, CBCAD, TSH #### [facility] [address], [place] [id number] Platelet mean volume (Bld) [Entitic vol] 10.90 fL Normal 7.50-12.50 [facility] Comment on above: Performed By: #### C MP, CBCAD, TSH #### [facility] [address], [place] [id number] Platelets (Bld) [#/Vol] 250 10*3/uL Normal 140-400 [facility] Comment on above: Performed By: #### C MP, CBCAD, TSH #### [facility] [address], [place] [id number] RBC (Bld) [#/Vol] 5.25 10*6/uL Normal 4.20-5.80 [facility] [place] [facility] Comment on above: Performed By: #### C MP, CBCAD, TSH #### [facility] [address], [place] [id number] RDW-SD 43.3 fL Normal 37.0-50.0 [facility] Comment on above: Performed By: #### C MP, CBCAD, TSH #### [facility] [address], [place] [id number] WBC (Bld) [#/Vol] 6.9 10*3/uL Normal 3.8-11.0 [facility] Comment on above: Performed By: #### C MP, CBCAD, TSH #### [facility] [address], [place] [id number] Comprehensive Metabolic Pane julian 06-06-2021 Albumin [Mass/Vol] 4.7 g/dL Normal 3.6-5.1 [facility] [employer] Comment on above: Performed By: #### C MP, CBCAD, TSH #### [facility] [address], [place] [id number] Albumin/Globulin [Mass ratio] 1.8 {ratio} Normal 1.0-2.5 [facility] Comment on above: Performed By: #### C MP, CBCAD, TSH #### [facility] [address], [place] [id number] ALP [Catalytic activity/Vol] 87 U/L Normal 40-129 [facility] Comment on above: Performed By: #### C MP, CBCAD, TSH #### [facility] [address], [place] [id number] ALT [Catalytic activity/Vol] 22 U/L Normal 9-46 [facility] Comment on above: Result Comment: 03/22 Female reference range changed. Performed By: #### C MP, CBCAD, TSH #### [facility] [address], [place] [id number] Anion gap [Moles/Vol] 20 mmol/L Normal 12-20 [facility] [employer] Comment on above: Result Comment: Effe ctive 04/27/2019 reference range changed. Performed By: #### C MP, CBCAD, TSH #### [facility] [address], [place] [id number] AST [Catalytic activity/Vol] 18 U/L Normal 10-40 [facility] Comment on above: Performed By: #### C MP, CBCAD, TSH #### [facility] [address], [place] [id number] BUN/CREA 19 Ratio Normal 6-22 [facility] [employer] Comment on above: Performed By: #### C MP, CBCAD, TSH #### [facility] [address], [place] [id number] Calcium [Mass/Vol] 7.4 mg/dL Low 8.6-10.2 [facility] [employer] Comment on above: Performed By: #### C MP, CBCAD, TSH #### [facility] [address], [place] [id number] Chloride [Moles/Vol] 106 mmol/L Normal 98-107 [facility] Comment on above: Performed By: #### C MP, CBCAD, TSH #### [facility] [address], [place] [id number] CO2 [Moles/Vol] 20 mmol/L Normal 20-31 [facility] Comment on above: Performed By: #### C MP, CBCAD, TSH #### [facility] [address], [place] [id number] Creatinine [Mass/Vol] 1.5 mg/dL High 0.7-1.4 [facility] Comment on above: Performed By: #### C MP, CBCAD, TSH #### [facility] [address], [place] [id number] eGFRAA 59 mL/min/1.73m2 Low >60 [facility] Comment on above: Performed By: #### C MP, CBCAD, TSH #### [facility] [address], [place] [id number] eGFRNAA 48 mL/min/1.73m2 Low >60 [facility] Comment on above: Performed By: #### C MP, CBCAD, TSH #### [facility] [address], [place] [id number] Globulin (S) [Mass/Vol] 2.6 g/dL Normal 1.9-3.7 [facility] Comment on above: Performed By: #### C MP, CBCAD, TSH #### [facility] [address], [place] [id number] Glucose [Mass/Vol] 112 mg/dL High 65-99 [facility] Comment on above: Result Comment: For FASTING Glucose --- ADA reference ranges: Normal 65-99 mg/dl Prediabetes 100-125 Diabetes >/= 126 Performed By: #### C MP, CBCAD, TSH #### [facility] [address], [place] [id number] Potassium [Moles/Vol] 4.3 mmol/L Normal 3.5-5.5 [facility] Comment on above: Performed By: #### C MP, CBCAD, TSH #### [facility] [address], [place] [id number] Protein [Mass/Vol] 7.3 g/dL Normal 6.1-8.1 [facility] [employer] Comment on above: Performed By: #### C MP, CBCAD, TSH #### [facility] [address], [place] [id number] Sodium [Moles/Vol] 142 mmol/L Normal 135-146 [facility] [employer] Comment on above: Performed By: #### C MP, CBCAD, TSH #### [facility] [address], [place] [id number] TBIL <0.3 Normal [facility] Comment on above: Performed By: #### C FILIBERTO, CBCAD, TSH #### [facility] [address], [place] [id number] Urea nitrogen [Mass/Vol] 27 mg/dL High 7-25 [facility] [employer] Comment on above: Performed By: #### C FILIBERTO, CBCAD, TSH #### [facility] [address], [place] [id number] Q - TROPONIN Ion 06-06-2021 TROPONIN I 3 ng/L Normal < OR = 47 [facility] Comment on above: Order Comment: [facility] performed at: [employer] [facility], [address] [place] [address], [address] [place] [address], [phone], [employer] Supervisor: Janes Vasquez MDQuest Collection Date/Time: [id number] Results Received Date/Time: [id number] Reported Date/Time: Result Comment: In accord with published recommendations, serial testing of troponin I at intervals of 2 to 4 hours for up to 12 to 24 hours is suggested in order to corroborate a single troponin I result. An elevated troponin alone is not sufficient to make the diagnosis of [place]. Performed By: #### C MP, CBCAD, TSH #### [facility] [address], [place] [id number] TSHon 06-06-2021 TSH 0.917 uIU/mL Normal 0.400-4.50 0 [facility] [employer] Comment on above: Performed By: #### C MP, CBCAD, TSH #### [facility] [address] [id number] Coding Summary.on 10-27-2020 Coding Summary. [id number] [id number] NyvixIPrVF94XGa2QHB0cRsfEHdv fO0tzJErU7r4QbWiHU00aG18DGag ABLmIaD1DlSovmrqsIOx A6jpCzLxiWYyNrh+PHRhYmxlIHdp MZLsVThbOEGnKaRmoVdeFO0kXh2o ZGVyLWNvbGxhcHNlOiBj o7nqKNVtIXiiKQ9ppMpyA1JjzES5 BXFuw4i7Fq04nWN+ZFBqNTR4mSof PBbri856MdUvy2jsMZQ3 aDTnPUzwFGZ2E99bp5E3PBNbLMUd MZC0vVZ8wJ2cyPsvwrssT2XdwIWb QsP9FXT7rKDomD3huIjh wcdivP6lMxh+F28LGC5WTCWEYO5U Ltb2G1UqDhhhqQD+FH59DHZsHI20 mSOqzDWpw3amuHh9ExXc NQFrDSB0uEryZAmhh8RuMPKfW35p kOQfx4H1UHGfbYhteVWmUwHzyDN1 zA9nSJrcwhhdf6sjutbe Oeetd3psik87nM55E00wNYdfPGXb JDR8BCVmMASwbWkcey8rkQ5aEd9+ YUfni6hpp6ozqFt2VaNn BBVpewYftCvhOUO9i1BxNu81E9Od cMwry9MkMpg0ac96xLCwo3K6rKD9 RLkkVUIiuS9mOYgcDhA4 FIWmBkYlbL15bHOfBAqkFv1egCvw mYbzZK0kHGBkperqIKSysS4oQDKu wSHdaKkcVW4vGVYfysqt b219IvRwURI2QBMqpWPzS1PmuQ0q HeRvSGLiVCWoY3QrkMUnAGdhE816 JNikOiU6HLSfzpAkC7Gc RIIncRieXfZ3q9R5Nh5Li4Astqbo WKL4SIfsUMD4QoD4LcYfUiG4I8Et Nqz4JJQrpKuoHT6rD9Cd JFOtozlznlwauIC7YIIgVXUitU01 jMWlLZguQr4xu1B6q186SWCsXHIn nY55Dj6hhJdnQSCscBIL uV3qqvyth8gqtniiRsPpHLAvQUl8 HIx6HNQkmAthGgGiSSJ9JzE5CRC7 lGOqqE1cwBldxrxvxO8t Oyc+X60upX6dTGG9AGP2cqiiRXMb yiVmRS76CU37Q9UzFgoleOByaYA+ CRNsylHuqQycXS9vWiHs w5szm0SxYRnlT7PtQINjNCklTma5 KOCwEJQ9tFE9nD4fRYQxISqkr5V9 eKE1O4SkloKjbp8bo3pc MWXyLSuaA53nhLIly2W8YUJvjOM8 RAMefNzhPkIzzB70Nbs+PGNvbGdy z5XiJspyr8lfp5cnqHy2 GrUaXPCrubPxqOlzXER4p2LnTe59 O85pMDimZOVwNYDeMLBcUQRsbVub or1ozT2yPb9+PGNvbCB3 eEG6jQ5tBLYmUtW5ISanB173YpRz rYRcMqsrk4kmx1ilhHo4NaPgKKRr mgOlgXwlZCL0o6EtFi74 C89yWUfkFOFyBTTkBPThROIxtXtb fe5fbC0aOk6+CV4ld9mfof77wF43 dHI+ECGwMUA9oPpoGJuy UIOxyO4vZHozWtD0HLYkLrAqtY43 lWQvFKedOe2asViznGmnGD5pLAUg fvydl931RrGzk1rzGCNk uWLsUWieCFT4L99ho6G3HFXwGIZh UBR7jZJ8qX0jsDkaolsebETnwRvl tmBnhMjtCFvmDYawK162 IHRvcDsnPlBhdGllbnQgTmFtZTo8 U6GbQsi0LPHhtUieEP0icJShZHlr Ny6ulDkueZswYL4lVDUu tbaci509QgWai6faOIOvrRCqFBwb THM9E55qv2E1TLEnUHKlPSU8jHH0 iV9sbHrmfjzzzDFezPbj ppFxkSbtAYxmUYtyF361LSCryStx LsDnndYkZTPdlPU0DJ17QC67kVNb r9W0zJY1E8VxHQOqnogn rkkagKG0ECZbOFRfzF78Ye4psKzk Cz9gOHOvSUM0XNApjYTvA0YzhJ7m ZzVoQYZuDXDlT6GabBCl WYarU275HPtlJaD8PGKtluFcR7Vc CAKznDcaUeZ6l2A2Nz2HJ0T6JZ36 AG77qBBvg2Z4gQI9E5Xi RXYtbwvkrjsedHC9WHHwGKBzvF16 Nh8cyCkxVg3jRINrWFE6AOBgjIMi Q6TfxT5vEoKcHGIcBXNi M7BpyYWdPAknT066CWatTdF1VIUa toGqH4XuXEIkhIifUqS5m1U5Xg1Q JOt4DF26CE69eOLoi8M7 qJN1D5NwEIGnanxreyafvCM1PSYb YGXbmB57Jl6ioOdyYl4hUTYuKDV4 NMTrmWGlC1PmdF0uGoWi LHOoDKEuU0XchNAjHJanF200AUnr TzZ4IITgnuYgK1IkMSFeoMkeAsY2 q7Q8Fu0BSQJuDP97QGW7 aBL7VJ16KH43Q5YpJegveJOzlHK+ PHRhYmxlIHdpZHRoPScxMDAlJyBz pDczZV7lAa1sLSIvPCJe mDxnzPZrEpJda0jaAEUyCUujXJ9o kHhwV3OdxLO3KSTjg5q8Tb91P12n H9WdyFD+GDVouEQ2lJL6 uN8sHuIdXnZ7XXqmI552EeQwkGFq Omtsx4bhj0wkcPj3ZpQ5MZVwrpPa hJxlFYO4j8DvLi10O46g VCybZAYtCUFuXSTwOSFmaLulnb8u zI7cHp4+RHRbhAQ9oLC4qK0rPoDn CbP3EFzpW739BcPooDXt Cmyqo8vmo9tgcYh6GnMdZAJlhtVy yUpkOYC0t5OwYm28L6ItqDyqs6Lh Vbr4ww39kYIae3W6pKA7 X3SmIAErbuljnJHwhGtfVY9dUQSp gvvmMKUlsN4mJIFnL9n5VfRyJlK1 PWloA2KwneL6NJCuyXNo KTfkTMX5R13ln9S2UUPfXBLmNNU2 aDI7zT9bkIovnqccgPOdgLaxgnXc kLmoLVhzSGxlN485QNHu iJydYOBcfT2yTDHynDHlsXodHW2i NTBpbjsnPkFVRFJJVFNIIEpSLCBG IpSEUJJZW5lyJQythJZ+ XTFsPRM6zFqnXLcuSZHezG5fVLZc F9f3HmCrXeI9MSmmR4TyRNIaqsry Ak93vD2lMhVlIeM8MIpc M3AmajZ0TZLfyBNeTCvfSDW0N38h c2F6SKPvARYsASP8cSY9xD3ppWrb bjogbGVmdDsgdmVydGlj LAdtYJktZ010ADBwrMzsYfUsGpYm ErB6THK9N3XqDjg6YECuqFrbDH2c bJMaRBcmNq2aiPkhxZlc GP9gNUTrgmptSIKyyB0oSNHbxOQx iIweJY6lAFIddgxwe555EqTmSNS3 HVDcgPVwN5YymE0tIgAy HBPrGZTvR0GyuZDrQIelW401SOeo RyN6WSHkauOxX3QoUIIruAkvXsU8 q1X2Hw43HeBLEBXctdif dGQ+KQJuPOJ2rSrvXMlgNVUwfH1r JRAdZ4e3UmVvUwM3CIeyT4OoQGTq huzcAk53xR0kWuCnPqQ2 JMyhT6OsukH4AUYugKWqIHuuJZM8 Z34ex5V7WEZoDDEyCKM8qLG5qO4a bGlnbjogbGVmdDsgdmVy vQfvNLrqLLgdD170GSVmiWeyDk7v uXT6Q2ShWww4WBSspRbmRZ2tcKVa ENzePp6xsCrstYefOT8x NWOfcwzqIORzgW1jHRTwwKWqwCox NI2iJEDpebvqd480ZqZoNNO9RTSg qOWkB8WrqD4dEfYrANLu GKPqT0YjgBJmVRlwL031MWdhUfO9 QQEgscWjA5EcVKKjpIhnIiE1d6Y7 Wa5UvQByM6HfZ2n3J8Nx PjwvdHI+BN09UJOsNG62zNPoiFUr j7jcpXc6NxEsJVDmKKE2lKhfSEvh b1EzKREeH95iuLUgl7B0 CAOgjIudtGSaZrJzoFE9jF7gDFex vxwsc2bvvznkVpwlx0pwum23uL32 D75rOMpnZTZzCARsSBBo LZXksLgkhk5xwC3iRg9+PGNvbCB3 dKJ2zO7aAzJtSyV5DEhsW939HmHy nBBaYyjdh9mfr9jdpOu5 TeDjHIJgjjDilPyjTRI2d7HuVb21 X83qYQntTFDkVGCgTEDaEQGezDut vm2qxU1yAc9+CP5iv3yx pb15bP20hIP+NIQmGCH8iDhwBGmg MDBfqC2vVFzpOvT5OXVhDfDbdW34 cGMtCBnyDk3uyDparEyy FO7cQMXvlqnke173NsQtu7yxPHFd nMCaJLbdGDQ5R06ik8S7PFZjVESg PQG8wXF4eF4qcKdcuaye lUTnpTjoztVzhVjfGUlxWDmsQ164 HQEvjRqcPzXzqRWgA7wucqFOSB1q OjwvdGQ+OJRsGPF6xMyb STdqWNCdeV0oTMIeD6z4HjKaAyW6 ZOkvC3MfoxM5UPQeqNExOKHnvORH zZ2tfwisj9bzynscVpAc WFAtRBh3KDc2COFjnUjeCeCxGBJ3 PxO6LMG6zBFplJ2rrZpaaapkrB0z Oyc+RklOOjwvdGQ+PHRk REQ3pQpdQTdaRVKosJ1eFQUkZ1m1 VlWeWkQ0LTqfA2OebqA5BZBjbHMm ZWDoaGNEcN5ufwybn1pt yfudGtLkXJBlHHj1OFt1HEUuqZag RbKjWOG6GkC2RVJ6sBZmiZ9kxAjc gdvuzG1tPqm+TVJOOjwv dGQ+SWXnYSI9ePxvEHjgKNGhdL7p EFVjF5x6TvXoUlO1DHjdS3NwgnK6 DNSrlFYrTZXwwIUUoY8r pvrfg6jxkakxFeXqRRSaACj5KAm5 LAYywPclEnRtRGY5QsD0ETG8bNRv vY7ilRvlpiqnoJ4nWbw+ POD4GIO8QU84AA22E9MuKsqvqIPx bGU+PHRhYmxlIHdpZHRoPScxMDAl RxFgsWsnGB9hQi8fLGQx LWNv (more content not included)... Normal [facility] Auto Diffon 10-18-2020 Basophils/100 WBC (Bld) 1.2 % Normal 0.0-2.0 [facility] Comment on above: Order Comment: Order Added by Discern Expert. Performed By: #### 2 [id number], [id number], [id number] ####[address] [address] Basophils/Leukocyte s Auto (Bld) [Pure # fraction] 0.1 E9/L Normal 0.0-0.2 [facility] Comment on above: Order Comment: Order Added by Discern Expert. Performed By: #### 2 934659, 0355714, [id number] ####[address] [address] Eosinophils/100 WBC (Bld) 1.8 % Normal 0.0-8.0 [facility] Comment on above: Order Comment: Order Added by Discern Expert. Performed By: #### 2 329894, [id number], [id number] ####[address] [address] Eosinophils/Leukocy heladio Auto (Bld) [Pure # fraction] 0.1 E9/L Normal 0.0-0.5 [facility] Comment on above: Order Comment: Order Added by Discern Expert. Performed By: #### 2 148110, 2551042, [id number] ####[address] [address] Lymphocytes/100 WBC (Bld) 27.6 % Normal 14.0-50.0 [facility] Comment on above: Order Comment: Order Added by Perry Expert. Performed By: #### 2 752091, 4362822, [id number] ####[address] [place] [address] Lymphocytes/Leukocy heladio Auto (Bld) [Pure # fraction] 2.1 E9/L Normal 1.0-4.0 [facility] Comment on above: Order Comment: Order Added by Discern Expert. Performed By: #### 2 363774, 9735568, [id number] ####[address] [address] Monocytes/100 WBC (Bld) 9.6 % Normal 4.0-14.0 [facility] Comment on above: Order Comment: Order Added by Perry Expert. Performed By: #### 2 586900, 4891188, [id number] ####[address] [address] Monocytes/Leukocyte s Auto (Bld) [Pure # fraction] 0.7 E9/L Normal 0.2-1.0 [facility] Comment on above: Order Comment: Order Added by Perry Expert. Performed By: #### 2 366166, 7224936, [id number] ####[address] [address] Neutrophils/100 WBC (Bld) 59.8 % Normal 36.0-75.0 [facility] Comment on above: Order Comment: Order Added by Perry Expert. Performed By: #### 2 990627, 0442880, [id number] ####[address] [address] Neutrophils/Leukocy heladio Auto (Bld) [Pure # fraction] 4.6 E9/L Normal 2.0-7.5 [facility] Comment on above: Order Comment: Order Added by Perry Expert. Performed By: #### 2 718597, 2159537, [id number] ####[address] [address] BMPon 10-18-2020 Creatinine [Mass/Vol] 1.5 mg/dL High 0.5-1.3 [facility] Comment on above: Performed By: #### 2 319563, [id number], 7675454 ####[facility] [address] [place] [address] Urea nitrogen [Mass/Vol] 29 mg/dL High 5-21 [facility] Comment on above: Performed By: #### 2 735565, 33623657, 7043973 ####[facility] [address] [place] [address] Urea nitrogen/Creatinine [Mass ratio] 19 No Units Normal 10-20 [facility] Comment on above: Performed By: #### 2 374019, 67619046, 2488769 ####[facility] [address] [place] [address] Anion gap [Moles/Vol] 11 mmol/L Normal 6-16 [facility] Comment on above: Performed By: #### 2 279619, 77540271, 2687955 ####[facility] [address] [place] [address] Calcium [Mass/Vol] 8.0 mg/dL Low 8.9-11.1 [facility] Comment on above: Performed By: #### 2 580605, 70315042, 9587977 ####[facility] [address] [place] [address] Chloride [Moles/Vol] 107 mmol/L Normal 101-111 [facility] Comment on above: Performed By: #### 2 861518, 26218069, 8211271 ####[facility] [address] [place] [address] CO2 [Moles/Vol] 24 mmol/L Normal 21-31 [facility] Comment on above: Performed By: #### 2 047739, 77439236, 6496878 ####[facility] [address] [place] [address] Glucose [Mass/Vol] 95 mg/dL Normal 55-199 [facility] Comment on above: Result Comment: If t his glucose result represents a fasting glucose, interpretation should refer to the following reference range: 55-99 mg/dL Performed By: #### 2 812088, [id number], 0156554 ####[facility] [address] [place] [address] Potassium [Moles/Vol] 3.9 mmol/L Normal 3.5-5.3 [facility] Comment on above: Performed By: #### 2 335381, 38414575, 0603655 ####[facility] [address] [place] [address] Sodium [Moles/Vol] 138 mmol/L Normal 135-145 [facility] Comment on above: Performed By: #### 2 183241, 28434163, 2308950 ####[address] [address] CBC w/ Auto Diffon Erythrocyte distribution width (RBC) [Ratio] 15.7 % High 10.9-14.2 [facility] Comment on above: Performed By: #### 2 112011, 7018079, 80357962 ####[address] [address] Hematocrit (Bld) [Volume fraction] 39.9 % Normal 37.7-49.0 [facility] Comment on above: Performed By: #### 2 643264, 3849249, 48292660 ####[address] [address] Hemoglobin (Bld) [Mass/Vol] 13.3 g/dL Low 13.5-17.5 [facility] Comment on above: Performed By: #### 2 585702, 1652986, 48535029 ####[address] [place] [address] MCH (RBC) [Entitic mass] 27.1 pg Normal 27.0-34.0 [facility] Comment on above: Performed By: #### 2 158878, 9035939, 83946501 ####[facility] [address] [place] [address] MCHC (RBC) [Mass/Vol] 33.3 g/dL Normal 31.4-36.0 [facility] Comment on above: Performed By: #### 2 308891, 9644083, 58184352 ####[address] [address] MCV (RBC) [Entitic vol] 81.4 fL Normal 80.0-100.0 [facility] Comment on above: Performed By: #### 2 946724, 1977658, 75089203 ####[address] [address] Platelet mean volume (Bld) [Entitic vol] 9.2 fL Normal 6.4-10.8 [facility] Comment on above: Performed By: #### 2 300473, 3223789, 04584485 ####[address] [address] Platelets (Bld) [#/Vol] 223.0 E9/L Normal 150.0-500. 0 [facility] Comment on above: Performed By: #### 2 672354, 4686816, 16936489 ####[address] [address] RBC (Bld) [#/Vol] 4.9 E12/L Normal 4.3-5.9 [facility] Comment on above: Performed By: #### 2 005760, 0346166, 69022757 ####[address] [address] WBC corrected for nucl RBC Auto (Bld) [#/Vol] 7.6 E9/L Normal 4.0-11.0 [facility] Comment on above: Performed By: #### 2 500535, 6175711, 71822918 ####[address] [place] [address] Capillary Glucose POCon 09-21 Glucose [Mass/Vol] 118 mg/dL High 55-99 [facility] Comment on above: Result Comment: Erika heart RN/ Performed By: #### 2 [id number] ####[facility] [id number] Consent for Treatmenton 09-21 Consent for Treatment [id number]:127 Normal [facility] Discharge Instructionson Discharge Instructions [id number]:127 Normal [facility] ED Clinical Summaryon 2020 ED Clinical Summary (Inserted Image. Daya ble to display) [address] [address] ED Clinical Summary Person Information Name: YOLI ANTUNEZ JR [facility] Age: 65 Years : 1955 Sex: Male Language: Ecuadorean PCP: RADHA BURRIS MD Marital Status: Visit Id: Visit Reason: Palpitations; Shortness of breath; Chest pain; AFIB Speciality: Acuity: 2 Enc Type: Emergency Med Service: Emergency Arrival: 10/18/2020 07:56:12 Discharge: 10/18/2020 10:31:10 LOS: 000 02:35 Checkin: 10/18/2020 07:56:12 Checkout: 10/18/2020 10:31:10 Dispo Type: Home (Routine DC) EVENTS: Event Name Event Status Request Date/Time Start Date/Time Complete Date/Time Arrive Complete 10/18/2020 07:56:12 10/18/2020 07:56:12 10/18/2020 07:56:12 Document Home Meds Request 10/18/2020 07:56:12 Triage Complete 10/18/2020 07:56:12 10/18/2020 08:03:22 10/18/2020 08:03:22 Bed Assign Complete 10/18/2020 07:57:59 10/18/2020 07:57:59 10/18/2020 07:57:59 Dr Exam Complete 10/18/2020 07:57:59 10/18/2020 08:00:10 10/18/2020 08:00:10 RN Exam Complete 10/18/2020 07:57:59 10/18/2020 08:12:02 10/18/2020 08:12:02 EKG Complete 10/18/2020 07:58:25 10/18/2020 08:01:48 Registration Complete 10/18/2020 08:00:10 10/18/2020 09:22:53 10/18/2020 09:22:53 Pending Labs Complete 10/18/2020 08:12:20 10/18/2020 10:10:54 Lab Complete 10/18/2020 08:12:20 10/18/2020 08:57:32 Meds Admin Request 10/18/2020 08:12:20 EKG Cancel 10/18/2020 08:12:20 10/18/2020 08:39:57 X-Ray Complete 10/18/2020 08:12:20 10/18/2020 08:30:59 10/18/2020 08:38:01 Pending Labs Complete 10/18/2020 08:19:15 10/18/2020 08:19:15 10/18/2020 08:19:16 Pending Labs Cancel 10/18/2020 08:28:31 10/18/2020 08:28:31 10/18/2020 08:57:32 Lab Cancel 10/18/2020 08:28:31 10/18/2020 08:28:31 10/18/2020 08:57:32 Pending Labs Complete 10/18/2020 08:33:22 10/18/2020 08:33:22 10/18/2020 08:33:30 Lab Complete 10/18/2020 08:33:22 10/18/2020 08:33:22 10/18/2020 08:33:30 Wet Read Request 10/18/2020 08:38:01 Pending Labs Complete 10/18/2020 08:58:44 10/18/2020 10:11:48 Lab Complete 10/18/2020 08:58:44 10/18/2020 10:11:48 Reg Complete Request 10/18/2020 09:22:53 Pending Labs Complete 10/18/2020 09:25:21 10/18/2020 09:25:21 10/18/2020 09:37:37 Lab Complete 10/18/2020 09:25:21 10/18/2020 09:25:21 10/18/2020 09:37:37 Pending Labs Complete 10/18/2020 09:53:08 10/18/2020 09:53:08 10/18/2020 09:53:08 Discharge Complete 10/18/2020 10:14:04 10/18/2020 10:31:17 10/18/2020 10:31:17 Transfer Complete 10/18/2020 10:31:18 10/18/2020 10:31:18 10/18/2020 10:31:18 ADDRESS: [address] [place] [id number] PHYS DOC NOTES: MEDICAL INFORMATION: Prescriptions Given: Medications to Continue with No Changes Other Medications amlodipine-benazepril (amlodipine-benazepril 5 mg-10 mg oral capsule) 1 Capsules By Mouth every day. apixaban (Eliquis 5 mg oral tablet) 1 Tablets By Mouth 2 times a day. atorvastatin (atorvastatin 80 mg Tab) 1 Tablets By Mouth every day. calcitriol (calcitriol 0.25 mcg Cap) 2 Capsules By Mouth once a day (in the evening). colchicine (colchicine 0.6 mg Tab) 1 Tablets By Mouth 2 times a day. doxycycline (doxycycline hyclate 100 mg Cap) 1 Capsules By Mouth 2 times a day. erenumab (Aimovig SureClick Autoinjector-aooe 140 mg/mL subcutaneous solution) 140 Milligram Subcutaneous once a month. famotidine (famotidine 20 mg Tab) 1 Tablets By Mouth 2 times a day. febuxostat (febuxostat 40 mg oral tablet) 1 Tablets By Mouth every day. gabapentin (gabapentin 300 mg Cap) 1 Capsules By Mouth once a day (in the evening). isosorbide mononitrate (isosorbide mononitrate 60 mg ER Tab) 1 Tablets By Mouth once a day (in the evening). levothyroxine (levothyroxine 150 mcg (0.15 mg) Tab) 1 Tablets By Mouth every day. metoprolol (Metoprolol tartrate 50 mg Tab) 1 Tablets By Mouth 2 times a day. pantoprazole (Pantoprazole [address] Tab) 1 Tablets By Mouth every day. pramipexole (pramipexole 1 mg Tab) 2 Tablets By Mouth once a day (in the evening). sucralfate (Carafate 1 gram Tab) 1 Tablets By Mouth 3 times a day. PATIENT EDUCATION INFORMATION: Instructions: Atrial Fibrillation Follow up: With: Address: When: Call Dr. Joshi's office tomorrow AM to arrange for follow-up. In 3 days 10/21/2020 With: Address: When: RADHA BURRIS [facility] [place], [place] [id number] [facility] (1) In 3 days DIAGNOSIS: AF (paroxysmal atrial fibrillation) Normal [facility] ED Note-Physicianon 10-19-19 ED Note-Physician Basic Information Time Seen: Oscar Sandoval DO 10/18/2020 08:00 Chief Complaint Hx of afib. C/o chest pain, SOB and palpitations starting a couple hrs ago. History of Present Illness 65-year-old male to the emergency department with chief complaint of chest pain, dizziness, shortness of breath that was episodic this morning. Patient reports that he was working when he felt himself going to atrial fibrillation. He reports that these symptoms are typical of his atrial fibrillation episodes. Lasted approximately 1 hour and then resolved. He reports that he is now back to baseline. Chest pain was a pressure like sensation located substernally in his chest. Dizziness and shortness of breath he relates to being decreased exercise capacity while in atrial fibrillation. He denies any other symptoms. He was otherwise at his baseline health. Review of Systems CONSTITUTIONAL: Denies fever, sweats, chills. NEURO: Denies difficulty walking, numbness, weakness, tingling, headache. HEENT: Denies sore throat, rhinorrhea, epistaxis, changes in vision. CARDIO: Admits chest pain, palpitations. PULM: Admits shortness of breath. Denies cough. GI: Denies abdominal pain, nausea, vomiting, melena, hematochezia. : Denies painful urination, urgency, frequency, hematuria. MSK: Denies recent trauma, neck pain, back pain. SKIN: Denies rash, lesions. ENDOCRINE: Denies unexpected weight-loss, weight gain. HEME: Denies abnormal bleeding, bruising. Physical Exam Vitals & Measurements T: 36.5 ?C (Oral) HR: 91(Peripheral) RR: 24 BP: 129/84 SpO2: 99% HT: 198 cm HT: 198.0 cm WT: 119 kg WT: 119.0 kg BMI: 30.35 VITALS: I have reviewed the triage vital signs. GENERAL: Well developed, well appearing adult male in no acute distress. NEURO: Alert and oriented. Moves all extremities. Face is symmetric and expressive. EYES: PERRL. No scleral icterus or conjunctival injection. No discharge. HENT: Normocephalic, atraumatic. Hearing is grossly intact. Nares grossly patent and without discharge. Mucous membranes moist. Loo. NECK: No JVD. Patient moves neck without restriction. CARDIO: Rhythm regular. Normal rate. No murmur, rub, or gallop. Pulses equal bilaterally in the upper and lower extremity. No lower extremity edema. PULM: Lungs clear to auscultation in all fernandez. No wheezes, rales, or rhonchi. No conversational dyspnea. No splinting, stridor, or accessory muscle use. GI/: Abdomen is soft and non-tender. Normoactive bowel sounds. EXTREMITIES: Symmetric muscle bulk. No joint swelling. No clubbing, cyanosis, or deformity. SKIN: Warm and dry. Normal turgor. No rash or lesions appreciated. PSYCH: Mood, affect, and interaction is appropriate to the setting. Medical Decision Making 65-year-old male to the emergency department with chief complaint of atrial fibrillation episode. Vital stable, the patient is afebrile. Patient is returned to a sinus rhythm. Basic labs, troponin, magnesium ordered. Chest x-ray and EKG ordered. 1 L of lactated Ringer's ordered. Patient agrees with this plan. Patient reports that he was recently trialed on sotalol 3 weeks ago which failed. He was taken off his metoprolol at that time. Surveillance Observer is Dr. Modi at [facility]. Troponin negative. Electrolytes unremarkable. CBC with baseline anemia. Mildly increased creatinine. Discussed with the patient increasing fluid intake. He was given 1 L of lactated Ringer's in the ED. Patient reexamined several times throughout his ED stay. He reports that he is feeling improved. He denies any chest pain, shortness of breath throughout his stay. His vitals remained stable. He remained in normal sinus rhythm. I called the patient's user experience researcher Dr. Joshi. We discussed the patient's history, presentation, diagnostic work-up, vitals. After this discussion he reports the patient is okay to follow-up with him as an outpatient. He will call the patient and schedule a pacemaker visit. I discussed the user experience researcher recommendations with the patient. He would like discharge home. I did offer the patient admission for further work-up and treatment for his chest discomfort which he declined. He does not wish to stay for second troponin level. Return precautions were discussed. He was instructed follow-up with his primary care doctor and user experience researcher. Patient expresses understanding of agreement this plan. The patient was discharged home. Oscar Sandoval DO Assessment/Plan AF (paroxysmal atrial fibrillation) (I48.0: Paroxysmal atrial fibrillation) Orders: Lactated Ringers Injection 1,000 mL, 1,000 mL, IV, 1000/hr, for 30 day(s), Stop date 11/17/20 8:08:00 EDT, STAT, Start date 10/18/20 8:09:00 EDT, Total volume (mL): 1,000, 119 kg, 2.56, m2 Automated Diff Basic Metabolic Panel CBC w/ Auto Diff ED Cardiac Monitoring eGFR Extra Blue Tube Magnesium Level Troponin 0 Hr. XR Chest Single View Medications Administered Given Lactated Ringers IV Casi 1000 mL 1,000 mL, 1000 mL, IV Disposit (more content not included)... Normal [facility] Comment on above: Result Comment: Elec tronically Signed By: Oscar Sandoval DO\.br\Date and Time Signed: 10/18/20 10:18 EDT ED Patient Education Noteon 10-18-2020 ED Patient Education Note Cardiovascular Atrial Fibrillation Atrial fibrillation is a type of irregular or rapid heartbeat (arrhythmia). In atrial fibrillation, the top part of the heart (atria) quivers in a chaotic pattern. This makes the heart unable to pump blood normally. Having atrial fibrillation can increase your risk for other health problems, such as: ? Blood can pool in the atria and form clots. If a clot travels to the brain, it can cause a stroke. ? The heart muscle may weaken from the irregular blood flow. This can cause heart failure. Atrial fibrillation may start suddenly and stop on its own, or it may become a long-lasting problem. What are the causes? This condition is caused by some heart-related conditions or procedures, including: ? High blood pressure. This is the most common cause. ? Heart failure. ? Heart valve conditions. ? Inflammation of the sac that surrounds the heart (pericarditis). ? Heart surgery. ? Coronary artery disease. ? Certain heart rhythm disorders, such as Thompson?Parkinson?White syndrome. Other causes include: ? Pneumonia. ? Obstructive sleep apnea. ? Lung cancer. ? Thyroid problems, especially if the thyroid is overactive (hyperthyroidism). ? Excessive alcohol or drug use. Sometimes, the cause of this condition is not known. What increases the risk? This condition is more likely to develop in: ? Older people. ? People who smoke. ? People who have diabetes mellitus. ? People who are overweight (obese). ? Athletes who exercise vigorously. ? People who have a family history. What are the signs or symptoms? Symptoms of this condition include: ? A feeling that your heart is beating rapidly or irregularly. ? A feeling of discomfort or pain in your chest. ? Shortness of breath. ? Sudden light-headedness or weakness. ? Getting tired easily during exercise. In some cases, there are no symptoms. How is this diagnosed? Your health care provider may be able to detect atrial fibrillation when taking your pulse. If detected, this condition may be diagnosed with: ? Electrocardiogram (ECG). ? Ambulatory equipment monitor phototypesetting. This device records your heartbeats for 24 hours or more. ? Transthoracic echocardiogram (TTE) to evaluate how blood flows through your heart. ? Transesophageal echocardiogram (CHANTELLE) to view more detailed images of your heart. ? A stress test. ? Imaging tests, such as a CT scan or chest X-ray. ? Blood tests. How is this treated? This condition may be treated with: ? Medicines to slow down the heart rate or bring the heart's rhythm back to normal. ? Medicines to prevent blood clots from forming. ? Electrical cardioversion. This delivers a low-energy shock to the heart to reset its rhythm. ? Ablation. This procedure destroys the part of the heart tissue that sends abnormal signals. ? Left atrial appendage occlusion/excision. This seals off a common place in the atria where blood clots can form (left atrial appendage). The goal of treatment is to prevent blood clots from forming and to keep your heart beating at a normal rate and rhythm. Treatment depends on underlying medical conditions and how you feel when you are experiencing fibrillation. Follow these instructions at home: Medicines ? Take over-the counter and prescription medicines only as told by your health care provider. ? If your health care provider prescribed a blood-thinning medicine (anticoagulant), take it exactly as told. Taking too much blood-thinning medicine can cause bleeding. Taking too little can enable a blood clot to form and travel to the brain, causing a stroke. Lifestyle ? Do not use any products that contain nicotine or tobacco, such as cigarettes and e-cigarettes. If you need help quitting, ask your health care provider. ? Do not drink beverages that contain caffeine, such as coffee, soda, and tea. ? Follow diet instructions as told by your health care provider. ? Exercise regularly as told by your health care provider. ? Do not drink alcohol. General instructions ? If you have obstructive sleep apnea, manage your condition as told by your health care provider. ? Maintain a healthy weight. Do not use diet pills unless your health care provider approves. Diet pills may make heart problems worse. ? Keep all follow-up visits as told by your health care provider. This is important. Contact a health care provider if you: ? Notice a change in the rate, rhythm, or strength of your heartbeat. ? Are taking an anticoagulant and you notice increased bruising. ? Tire more easily when you exercise or exert yourself. ? Have a sudden change in weight. Get help right away if you have: ? Chest pain, abdominal pain, sweating, or weakness. ? Difficulty breathing. ? Blood in your vomit, stool (feces), or urine. ? Any symptoms of a stroke (more content not included)... Normal [facility] ED Patient Summaryon 021 ED Patient Summary (Inserted Image. Daya ble to display) [address] [address] Patient Discharge Instructions Person Information Name: YOLI ANTUNEZ JR Age: 65 Years Arrival Date: 10/18/2020 07:56:12 Discharge Diagnosis: AF (paroxysmal atrial fibrillation) Primary Care Physician: RADHA BURRIS MD Provider Information Primary Provider: Oscar Sandoval DO Advanced Plug Overwrap Machine Tender:None The exam and treatment you received in the Emergency Department were for an urgent problem and are not intended as complete care. It is important that you follow up with a doctor, nurse practitioner, or physician?s membership assistant for ongoing care. If your symptoms become worse or you do not improve as expected and you are unable to reach your usual health care provider, you should return to the Emergency Department. We are available 24 hours a day. YOLI ANTUNEZ JR has been given the following list of patient education materials, prescriptions and follow-up instructions: Follow-up Instructions: With: Address: When: Call Dr. Joshi's office tomorrow AM to arrange for follow-up. In 3 days 10/21/2020 With: Address: When: RADHA BURRIS [facility] [place], [place] [id number] Business (1) In 3 days In the event that this physician does not participate in your insurance network, please consult with your insurance company to find a nearby participating provider. Patient Education Materials: Atrial Fibrillation A MESSAGE TO ALL PATIENTS REGARDING OPIOIDS PRESCRIPTION OPIOIDS: WHAT YOU NEED TO KNOW Prescription opioids can be used to help relieve vaqymxsb-pf-pwmmnh pain and are often prescribed following a surgery or injury, or for certain health conditions. These medications can be an important part of the treatment but also come with serious risks. It is important to work with your healthcare provider to make sure you are getting the safest, most effective care. WHAT ARE THE RISKS AND SIDE EFFECTS OF OPIOID USE? Prescription opioids carry serious risks of addiction and overdose, especially with prolonged use. An opioid overdose, often marked by slowed breathing, can cause sudden . The use of prescription opioids can have a number of side effects as well, even when taken as directed: ? Tolerance?meaning you might need to take more of the medication for the same pain relief ? Physical dependence?meaning you have symptoms of withdrawal when a medication is stopped ? Increased sensitivity to pain ? Constipation ? Nausea, vomiting, and dry mouth ? Sleepiness and dizziness ? Confusion ? Depression ? Low levels of testosterone that can result in lower sex drive, energy, and strength ? Itching and sweating RISKS ARE GREATER WITH: ? History of drug misuse, substance use disorder, or overdose ? Mental health conditions (such as depression or anxiety) ? Sleep apnea ? Older age (65 years and older) ? Avoid alcohol while taking prescription opioids. Also, unless specifically advised by your health care provider, medications to avoid include: ? Benzodiazepines (such as Xanax or Valium) ? Muscle relaxants (such as Soma or Flexeril) ? Hypnotics (such as Ambien or Lunesta) ? Other prescription opioids KNOW YOUR OPTIONS Talk to your health care provider about ways to manage your pain that don?t involve prescription opioids. Some of these options may actually work better and have fewer risks and side effects. Options may include: ? Pain relievers such as acetaminophen, ibuprofen, and naproxen ? Some medication that are also used for depression or seizures ? Physical therapy and exercise ? Cognitive behavioral therapy, a psychological, goal-directed approach, in which patients learn how to modify physical, behavioral, and emotional triggers of pain and stress. IF YOU ARE PRESCRIBED OPIOIDS FOR PAIN: ? Never take opioids in greater amounts or more often than prescribed. ? Follow up with your primary health care provider. o Work together to create a plan on how to manage your pain. o Talk about ways to help manage your pain that don?t involve prescription opioids. o Talk about any and all concerns and side effects. ? Help prevent misuse and abuse o Never sell or share prescription opioids. o Never use another person?s prescription opioids. ? Store prescription opioids in a secure place and out of reach of others (this may include visitors, children, friends, and family). ? Safely dispose of unused prescription opioids: Find your community drug take-back program or your pharmacy mail-back program, or flush them down the toilet, following guidance from the Food and Drug Administration (www.fda.gov/Drugs/Resources ForYou). ? Visit www.cdc.gov/drugoverdose to learn about the risks of opioids abuse and overdose. ? If you believe you may be struggling with addiction, tell your heal (more content not included)... Normal [facility] Magnesiumon 10-18-2020 Magnesium [Mass/Vol] 2.0 mg/dL Normal 1.3-2.4 [facility] Comment on above: Performed By: #### 2 [id number], [id number], [id number] ####[facility] [address] [place] [address] Troponin 0 Hr.on 10-18-2020 Troponin I.cardiac [Mass/Vol] 3.00 pg/mL Low 15.90-38.4 0 [facility] Comment on above: Result Comment: The 95% CI (Confidence Interval) PPV (Positive Predictive Value) for myocardial infarction in females is 38 pg/mL, in males 51 pg/mL. The results should be used in conjunction with clinical conditions of myocardial infarction. (Access High Sensitivity Troponin I Instructions For Use, [employer], November 2017) Performed By: #### 2 [id number], [id number], [id number] ####[facility] [address] [place] [address] XR Chest Single Viewon 10-18 XR Chest Single View Exam Date/Time: 10/18/2020 08:38 EDT Reason for Exam: Shortness of breath (SOB) Report IMPRESSION: THERE ARE NO FOCAL INFILTRATES OR EFFUSIONS CLINICAL HISTORY: Shortness of breath (SOB) COMPARISON: Chest x-ray from 09/13/2020 FINDINGS: The cardiomediastinal silhouette is unremarkable. The lungs are free of infiltrates effusions or consolidations. The bones and soft tissues are within normal limits. FINAL REPORT Dictated: 10/18/2020 9:17 am Fer Nvaa MD, V. Signed (Electronic Signature): 10/18/2020 9:17 am Signed by: Fer Nava MD, V. Transcribed by: MALINI Technologist: JUWAN Normal [facility] eGFRon 10-18-2020 GFR/1.73 sq M.predicted among blacks MDRD (S/P/Bld) [Vol rate/Area] 57 mL/min/1.73 m2 Low >=59 [facility] Comment on above: Order Comment: Order added by Discern Expert. Result Comment: eGFR is race adjusted. AA=. Performed By: #### 2 [id number], [id number], [id number] ####[facility] [address] [place] [address] GFR/1.73 sq M.predicted among non-blacks MDRD (S/P/Bld) [Vol rate/Area] 47 mL/min/1.73 m2 Low >=59 [facility] Comment on above: Order Comment: Order added by Discern Expert. Result Comment: [employer] nikki kidney disease could be indicated at eGFR's of less than 60 mL/min/1.73m2. Kidney failure is indicated at less than 15 mL/min/1.73m2. Performed By: #### 2 [id number], [id number], [id number] ####[facility] [address] [place] [address] Coding Summary.on 09-22-2020 Coding Summary. [id number] Gh0bWw+P GhlYWQ+DH5PFTFmZ97vsMRhsP2CC 2cNZP9QODBPNPDNDH0PCG9gbPK6C DxhU6UchwNh QorboDJnYB45DBp2HAY7ePmvZUff yM8pgQVnV3p5ExGcMS11yB96IUpe OQBwOrV1HvYjvnomnMAb X2atDlBncWFhVcq+PHRhYmxlIHdp WKYvFPkxCBAkNtQnrXloRG2oIt9z ZGVyLWNvbGxhcHNlOiBj b3xxVNEcHMzeCT6xmMxlR5XzgWF5 TVLsm1u8Gb30cEX+PBAjFIQ5zTrz WVbie399EiIlq1wyQPR9 lXYgBByyKTP9U00bv7Q5ZRDsGMBc HQZ8sQF6cD5wqJlylezlH0YrwNQn AyO5WCI3fFHluU4slUce kwqalQ5xCna+G03VPW8FXGBUKP3W Ild6T9ScGqqatGK+CW32QRBoMH74 rATasYSob4czqTc2MeHq FJBhJCB4fGbdZZlrp8QgEIJaZ58a fLElp7B8KESqtAbfwRKwMpTzmHE7 lH2cKIxcndiki5duhygt Btkyw8mmpl65qM80D63hHAuvTDZa ZBS4VVZdGEVhbGskln2oaM4sBs7+ GGtcp1hdg8gpjZz7QjWd FROdtaXbaRybIQQ4s5QnIc24U5Gn xOdhe2QmEkl3av43jLAdr1Y8oLL1 TMgwGUSpzG9oLUlcVjE1 DWQdVtKqnY38uJObGYsdBq7bsIln xFznFE3xCQRywjrmLDLewX0nSVSd sDSujXkkHI5kDDGrxjkh i983XxNvJAT2LZZdpJLgQ7MosZ2k KiTuYTEfUUEuX4YdnTYbPTuhC789 ATjoQjD2BWFdkyXaY4Rf PRTxeRzzLjC9k0Q0En4Oc6Xshxge OAS3JWwfEXK2GsJoImGvFpT5S5Lf Gdy0NGZdkGwvCS4jV9Nx EABqkzdntqikiWB4THMeHQPrzA22 vVObMUrrTp9vl9O7e264LUUfEQOb iJ34Ex5liAtfFHPkpGUQ zE2nyslew1dctskrHgMuYPFkCJz1 XGt0YGItbUmzVgJmFOF2IlQ6YAD2 oGFfiN2syQjgwwvjbN1f Oyc+Z22yxR5aCFL2TXA4ftajTNZc vbFrGV06FE23F6NbKbuhzNNnoWW+ BLJddbHcsPbfSF1nVeDe r2dhg4UnEYjlE6MsSETsEKndIsm5 AGFsLWY9nTD0xM6dCAVfHJnfb8O2 kQQ8C6TykaCypd8tz0fy BYNqGFjmG01thGLvf0B4OYGtrAU1 OPVpoMqxRzGyeZ72Wyv+PGNvbGdy w7XpXulev6cpn7ugfIq6 AfGjTRNfgwKuhLgxCAV0y5AtBa93 V30kLSszPDWeMGWsVIWoRELfyRcx rc0qbQ5jTk4+PGNvbCB3 yLD7xT3fRDPwGbW5OAbqL025LfLv uJPeBgnlm2nlk0sleIz1SmKqPTZy uoLzxVhyITH2l1BvDn64 C77aKAfdUVWhPATyONWfXAGxiVpq vy9luR7qSr7+CH9hf6sidg39hQ37 dHI+MTBeTEL9mYirINbu IKNmqX8lHUdsOzM7XXWjWmSenL61 lDIjVJjqEn8fhCtyrTrbZR8sDUVu nepig976BlTck9yqYCEl zCPyEKkoXHI7W31px6K0DOEqBEWn HIU3dGM2bA1icNkkbbbdaPJmsMne nxQbfAsdDXgkLIqhT657 IHRvcDsnPlBhdGllbnQgTmFtZTo8 L8ZyVpb9AKOczAonUY4msGJyTGks Kp6oeZeagVvsAZ9yMCQd gvdqs052LzFxg5beACHocVUoQCid RWG7F46ag5X4ADAqZGFbTMA7iFT4 tY7ckYgdpdztuZFtkGqm ijNotUjcBArqEMazX412DRJdnZae GqCtgmIdNLNlqLI1XI93XO84eVLv c7C1lGN0E1VoJOWyqqgf pkzeaYV8OMGaAGPncD23Uk0gmVrg Sd7oLCBgKTX3UNOmbTOoA2KfpS4q CyWxTAUdGXRvN8NfySBa DYxwP730GGsgDlT4SPGyraLyM5Be ARWarCsmAhH3w4A6Un9PU7B6KC93 WM19cZGkp7I6pYG7K0Jc ROWmmfhdwqksnTY2RDUcNZPbhV33 Nf9kjRfyQk3sPAGfTQL0DSKutMAs H9NldU4hEuLdVATtVTZw W1WjpOWjUDelK472JVuuZeS0AHEi szNpZ8UgLQUcjQvsOpC8k6M7Qb1Y BZc0IL97ZI07eZSzc0T1 dDQ7G8LqOHJfpyoejuoutVN9MNJx BSOldD87Fs0lfDgfTg8kUKWfQKR5 RWOgnSSsQ1FmaD9hDiUa XHKsMIVvJ5DyvFYuBKoiP289TMse IlZ6KWUresUdX1TwJAMumWkaRxR0 t5M3Jb9MPMGgFC23GAM4 uUD0EP79VR21Z7ScYjhjaUYjyGG+ PHRhYmxlIHdpZHRoPScxMDAlJyBz tZfuNU2dOb5rSRHnUMEr wYhnfRIqUyDpd6gcSXWcIVjiKY5f oGuyB6WdmGQ5IBVrb9b9Tg42A95x C7YptOB+WFZtdLM3fPX7 eJ9eStTsGfF0XEvyC981JpUgtLUh Vthve9ste3rlnXx1LeX2MLWztqNf zVqaVUG6l1GvLw86D71s MLvsIJVfZFFbNGNsOBSafVmvde4l rX3lRv7+VBFokFN8hSP6fT2gAuJe HsE5LAoyZ780IuMveICn Idtiy7men5yklKd0YfVvLCYeydXd fOgzHWI0j9IoCr04L0TzoYnao9Ub Xob1uk41eXLgh4K2fGM0 V0TlVTOkdmrfxTIrkXlcPF0pXWSv zoftSSPglL0mRBEkF1u2CpWnObJ0 MOnaX1LnagT7YVVgtSTs QHlwPWM5P77yd9F8SCZkUFFyYPN1 nFB1xO1vbOsqdqldsPWjwTadghOj rDceHYxsWIqrL104ELOj jIijTKLhgN5nYPSqwTFxdHdsXB7l NTBpbjsnPkFVRFJJVFNIIEpSLCBG VhATMUCHD1zsUIlzjYA+ XJStVBX8xNwsHPgpDRTejT3gCUWr G3w8DbSuEuH8KVymQ6OfQNVmieom Ad93jV2vZiTaMaN9QEei U8IeiyU8SIWxkZIsIZgrMHP6C16k d7L8GYLkRFKrMGT1xTF1wK8mnGry bjogbGVmdDsgdmVydGlj VLuaIQndC137DPDzoKutTfUiJxPn WaU2AVO9V7MgGvz0BSDgkUzgZM4u xKSmAAlaOq8vvFecjJpo GC4iSCCpkhxmHOAmbD9vZKRwoWAd eZkfIU8xGMAzctuql964FnMuBTK4 GBCktBGyP5QwjR7hHuPk OYBuFCRaY2MgxODwNToqQ193GJkb AiM2FGRvvrCrV6WuWDUotYkjRmX9 s7B7Qy55UkBMBMUswjmt dGQ+XXQpDPY5gLevGHagEJByrA8e MFOsG1k2UbMaWyZ7WTcyQ0MiHIOr tynoDo63bO9cToKdZaL7 SMblF4KeznR6JZMcmCOyYTkeLVP8 X50xm6G5RVJrTJMgVYH6pNG4jZ4s bGlnbjogbGVmdDsgdmVy jXkkBRefDVazY152PKSsaYbsFs7o sCX2C9RxEkw5GHHymLzwXO4onTGt GTbdBo7gyZlwzQlrNT2f SKUwznsiGJYkdY2gGLTdbKWrbQjz JA9cXQAsjxwyz635IjVrUEE3VOYl bCGkR0TufP8hWxKgIOIi WOThH8KpjHTsOBoqY611QTmvZgH0 EHDbmpUkF4GwZMYblXwrRaJ4l7K9 Ud0MmFInO1QeN2o4Y9Zf PjwvdHI+HY36DFUxRJ91qJNifCLn q1ycnSc6PoTqMMNnYGU8qZfwCVvr r1ZnWLYxQ06ehXXtr4Z5 ZETcsGjdzCQmXqGssIW5iO3xSXwy dkxxp9srzynxXrnao1vicz38fF58 U21oXRyySZGsVRIbWCWm XBRhuFhnyr0vmG0nOf0+PGNvbCB3 jFW6lZ2ePbKwDkY1NPmzI495OeOx mUFdNldlg8iqx3sgrSa2 DeYiJMExyhVrdTmjUGT7w8WgOv92 D36sGNieAXDcLTVcZZVwQPQsqFkc xy1fkV3qQa9+AD0jv6qx xy40cY01nTZ+TPXyDTY9kHuyAEiy QFTkyK1gBVquVlM5ZJTpSrEyyT86 hZBmYLahFj0ucKslwTlz GE5sZZJbaydtd716KlNlb3zvBBXn gGChIYffVDF6A43ee2H4LFQyOFRp HGW9aOB9sY4nqMlwwexy xTLokYvegfCmyDlwPMvlJUylZ161 ZBOqjSyvWbWlbBJsM6mnyxYDSI0i OjwvdGQ+JIUmSMD3aUdq SAscRZDpwF0gJXXtP4u6AwDlQcZ2 KCzdJ6GucaP5IZCxxIQfSVVnlOZE aV3jybryq5qksdgnSwRl PPPlHFe4QPa2RTEalKmbDbXwVRZ8 NtO1GWM8sBSsjD1nzFhkkuhivH4u Oyc+RklOOjwvdGQ+PHRk UGT7kDxoSNrqNPJezU4xJXUhT3l4 IiFgQfB7CPcrY2FjxnD8NYClvMTf USIdfBWJrH8ekfdqp8al zgzrRpXfXYQoBBh2NIe4SCZzqDbj GoEuQAK7StY8CAA4lCChdE9igGdg bolgfZ6tWcq+TVJOOjwv dGQ+GICzYHO3qYooPKkkBHTzvL1e WQJpG3a4WiSmFwR5ICakT1AsufM3 OAWkzWNmWEBhdXIWrZ2e vrevt4svhpdpFlPoXJRlYDv5XKp3 WWSpsNnaIiYcZTG5AxR4KEU8rCTi aP7lqMovarvbaD2mJlc+ KGZ7ILF2VZ20PQ27M5TyIgegnKCq bGU+PHRhYmxlIHdpZHRoPScxMDAl GzOmgSijSJ2xTk1jJYKl LWNv (more content not included)... Normal [facility] Auto Diffon 09-13-2020 Basophils/100 WBC (Bld) 0.6 % Normal 0.0-2.0 [facility] Comment on above: Order Comment: Order Added by Discern Expert. Performed By: #### 1 [id number], [id number], [id number], [id number], [id number] #### [facility] [address] [place] [address] Basophils/Leukocyte s Auto (Bld) [Pure # fraction] 0.0 E9/L Normal 0.0-0.2 [facility] Comment on above: Order Comment: Order Added by Discern Expert. Performed By: #### 1 [id number], 6038756, 28571141, 5960188, 9383492 #### [facility] [address] [place] [address] Eosinophils/100 WBC (Bld) 2.9 % Normal 0.0-8.0 [facility] Comment on above: Order Comment: Order Added by Discern Expert. Performed By: #### 1 3151564, 3597463, 64339222, 5457104, 6966455 #### [facility] [address] [address] Eosinophils/Leukocy heladio Auto (Bld) [Pure # fraction] 0.2 E9/L Normal 0.0-0.5 [facility] Comment on above: Order Comment: Order Added by Discern Expert. Performed By: #### 1 1241034, 5825856, [id number], 6777922, 1978985 #### [facility] [address] [address] Lymphocytes/100 WBC (Bld) 27.2 % Normal 14.0-50.0 [facility] Comment on above: Order Comment: Order Added by Discern Expert. Performed By: #### 1 6166929, 4407087, 97529258, 6675624, 0090780 #### [facility] [address] [address] Lymphocytes/Leukocy heladio Auto (Bld) [Pure # fraction] 2.0 E9/L Normal 1.0-4.0 [facility] Comment on above: Order Comment: Order Added by Discern Expert. Performed By: #### 1 6156090, 6027848, 54489317, 9094649, 9694663 #### [facility] [address] [address] Monocytes/100 WBC (Bld) 7.9 % Normal 4.0-14.0 [facility] Comment on above: Order Comment: Order Added by Discern Expert. Performed By: #### 1 0247943, 0020902, 59925700, 3846406, 8897040 #### [facility] [address] [place] [address] Monocytes/Leukocyte s Auto (Bld) [Pure # fraction] 0.6 E9/L Normal 0.2-1.0 [facility] Comment on above: Order Comment: Order Added by Discern Expert. Performed By: #### 1 4564868, 1900277, 44499301, 1634087, 0498622 #### [facility] [address] [place] [address] Neutrophils/100 WBC (Bld) 61.4 % Normal 36.0-75.0 [facility] Comment on above: Order Comment: Order Added by Discern Expert. Performed By: #### 1 2518827, 7065309, 79081776, 8441791, 7496439 #### [facility] [address] [place] [address] Neutrophils/Leukocy heladio Auto (Bld) [Pure # fraction] 4.5 E9/L Normal 2.0-7.5 [facility] Comment on above: Order Comment: Order Added by Discern Expert. Performed By: #### 1 6840362, 6964168, 19337899, 5297754, 9707699 #### [facility] [address] [place] [address] BMPon 09-13-2020 Anion gap [Moles/Vol] 13 mmol/L Normal 6-16 [facility] Comment on above: Performed By: #### 1 8413030, 2024414, 75521489, 5989397, 0967989 #### [facility] [address] [place] [address] Calcium [Mass/Vol] 7.0 mg/dL Abnormal 8.9-11.1 [facility] Comment on above: Result Comment: Crit ical Result verified by repeat analysis\Critical Result S_CA.0 Called to [facility] ER by QUAN SWEET And Read Back For Confirmation at: 09/13/2020 09:41:51 Performed By: #### 1 2665277, 2561136, 58740779, 9276837, 9321234 #### [facility] [address] [place] [address] Chloride [Moles/Vol] 110 mmol/L Normal 101-111 [facility] Comment on above: Performed By: #### 1 5624039, 5401714, 86654826, 7051164, 1851539 #### [facility] [address] [place] [address] CO2 [Moles/Vol] 22 mmol/L Normal 21-31 [facility] Comment on above: Performed By: #### 1 1800992, 9885583, 51754394, 6283149, 4939750 #### [facility] [address] [place] [address] Creatinine [Mass/Vol] 1.5 mg/dL High 0.5-1.3 [facility] Comment on above: Performed By: #### 1 4914249, 7836888, 49555901, 1456162, 8321220 #### [facility] [address] [place] [address] Glucose [Mass/Vol] 111 mg/dL Normal 55-199 [facility] Comment on above: Result Comment: If t his glucose result represents a fasting glucose, interpretation should refer to the following reference range: 55-99 mg/dL Performed By: #### 1 4289534, 4415606, 95257666, 7923663, 4106170 #### [facility] [address] [place] [address] Potassium [Moles/Vol] 4.2 mmol/L Normal 3.5-5.3 [facility] Comment on above: Performed By: #### 1 8760917, 2061914, 02348221, 4181533, 0258944 #### [facility] [address] [place] [address] Sodium [Moles/Vol] 141 mmol/L Normal 135-145 [facility] Comment on above: Performed By: #### 1 5740367, 2967252, 60620706, 8003678, 8797965 #### [facility] [address] [place] [address] Urea nitrogen [Mass/Vol] 26 mg/dL High 5-21 [facility] Comment on above: Performed By: #### 1 8065917, 3325800, 86904891, 9290641, 9843920 #### [facility] [address] [place] [address] Urea nitrogen/Creatinine [Mass ratio] 17 No Units Normal 10-20 [facility] Comment on above: Performed By: #### 1 6668139, 8890354, 07016298, 4958238, 2599958 #### [facility] [address] [id number] CBC w/ Auto Diffon 1 Erythrocyte distribution width (RBC) [Ratio] 15.3 % High 10.9-14.2 [facility] Comment on above: Performed By: #### 1 0539496, 2255592, 75637314, 0588052, 7654985 #### [facility] [address] [place] [address] Hematocrit (Bld) [Volume fraction] 34.6 % Low 37.7-49.0 [facility] Comment on above: Performed By: #### 1 9715816, 8069004, 59089576, 4307643, 8673724 #### [facility] [address] [place] [address] Hemoglobin (Bld) [Mass/Vol] 11.4 g/dL Low 13.5-17.5 [facility] Comment on above: Performed By: #### 1 3039127, 2893700, 07453073, 1705900, 2974771 #### [facility] [address] [place] [address] MCH (RBC) [Entitic mass] 26.9 pg Low 27.0-34.0 [facility] Comment on above: Performed By: #### 1 5639805, 0715556, 69212146, 6792165, 6734138 #### [facility] [address] [place] [address] MCHC (RBC) [Mass/Vol] 32.9 g/dL Normal 31.4-36.0 [facility] Comment on above: Performed By: #### 1 2953799, 4237442, 06587757, 5405547, 1238878 #### [facility] [address] [place] [address] MCV (RBC) [Entitic vol] 81.8 fL Normal 80.0-100.0 [facility] Comment on above: Performed By: #### 1 6120294, 7878552, 16132533, 3200559, 4027227 #### [facility] [address] [address] Platelet mean volume (Bld) [Entitic vol] 9.4 fL Normal 6.4-10.8 [facility] Comment on above: Performed By: #### 1 5561012, 4953484, 43283366, 2204228, 2526544 #### [facility] [address] [address] Platelets (Bld) [#/Vol] 237.0 E9/L Normal 150.0-500. 0 [facility] Comment on above: Performed By: #### 1 4840623, 6480405, 43794523, 9179050, 4161589 #### [facility] [address] [address] RBC (Bld) [#/Vol] 4.2 E12/L Low 4.3-5.9 [facility] Comment on above: Performed By: #### 1 5681793, 0391526, 47344797, 0109621, 5302834 #### [facility] [address] [address] WBC corrected for nucl RBC Auto (Bld) [#/Vol] 7.3 E9/L Normal 4.0-11.0 [facility] Comment on above: Performed By: #### 1 9969201, [id number] #### [facility] [address] [id number] Head or Brain w/o Contras ton 09-13-2020 CT Head or Brain w/o Contrast Exam Date/Time: 09/13/2020 09:42 EDT Reason for Exam: Subarachnoid hemorrhage (SAH) suspected;Other (please specify) Report IMPRESSION: No acute intracranial process or significant interval change from prior. EXAMINATION: CT Head or Brain w/o Contrast HISTORY: Subarachnoid hemorrhage (SAH) suspected. Headache. No recent injury. History of TIAs. TECHNIQUE: Serial axial images without IV contrast were obtained from the vertex to the foramen magnum, with sagittal and coronal reconstructions. All CT scans at this facility use dose modulation, iterative reconstruction, and/or weight based dosing when appropriate to reduce radiation dose to as low as reasonably achievable. COMPARISON: CT 01/19/2020 RESULT: Acute change: No evidence of an acute infarct or other acute parenchymal process. Hemorrhage: No evidence of acute intracranial hemorrhage. Mass Lesion / Mass Effect: There is no evidence of an intracranial mass or extraaxial fluid collection. No significant mass effect. Chronic change: None apparent. Parenchyma: There is mild generalized volume loss. The brain parenchyma is otherwise within normal limits for age. Ventricles: Ventricular enlargement concordant with the degree of parenchymal volume loss. Paranasal sinuses and skull base: The visualized paranasal sinuses are grossly clear. Mastoid air cells clear. The skull base is unremarkable. Soft tissues Report unremarkable. FINAL REPORT Dictated: 09/13/2020 10:19 am Tono Shirley MD Signed (Electronic Signature): 09/13/2020 10:19 am Signed by: Tono Shirley MD Transcribed by: MALINI Technologist: SHARIF Normal [facility] Capillary Glucose POCon 08-21 Glucose [Mass/Vol] 110 mg/dL High 55-99 [facility] Comment on above: Performed By: #### 2 [id number] ####[facility] [address] [place] [address] Consent To Leave AMAon 09-13 Consent To Leave AMA [id number]#1.00CD:127 Normal [facility] Consent for Treatmenton 08-21 Consent for Treatment [id number]#1.00CD:127 Normal [facility] Discharge Instructionson Discharge Instructions [id number]#1.00CD:127 [facility] ED Clinical Summaryon 2020 ED Clinical Summary (Inserted Image. Daya ble to display) [address] [address] ED Clinical Summary Person Information Name: YOLI ANTUNEZ JR [place] Age: 65 Years : 1955 Sex: Male Language: Ecuadorean PCP: RADHA BURRIS MD Marital Status: Visit Id: Visit Reason: Dizziness; Headache; Chest pain; CHEST PAIN-DIZZINESS Speciality: Acuity: 3 Enc Type: Emergency Med Service: Emergency Arrival: 09/13/2020 08:43:38 Discharge: 09/13/2020 10:46:00 LOS: 000 02:03 Checkin: 09/13/2020 08:43:38 Checkout: 09/13/2020 10:46:00 Dispo Type: Home (Routine DC) EVENTS: Event Name Event Status Request Date/Time Start Date/Time Complete Date/Time Arrive Complete 09/13/2020 08:43:38 09/13/2020 08:43:38 09/13/2020 08:43:38 Document Home Meds Request 09/13/2020 08:43:38 Triage Complete 09/13/2020 08:43:38 09/13/2020 08:55:39 09/13/2020 08:55:39 Bed Assign Complete 09/13/2020 08:46:26 09/13/2020 08:46:26 09/13/2020 08:46:26 Dr Exam Complete 09/13/2020 08:46:26 09/13/2020 08:52:01 09/13/2020 08:52:01 RN Exam Complete 09/13/2020 08:46:26 09/13/2020 09:11:09 09/13/2020 09:11:09 EKG Complete 09/13/2020 08:46:42 09/13/2020 08:50:53 Pending Labs Request 09/13/2020 08:46:42 Lab Complete 09/13/2020 08:46:42 09/13/2020 09:51:44 Patient Care Request 09/13/2020 08:46:42 RT Request 09/13/2020 08:46:42 X-Ray Complete 09/13/2020 08:46:42 09/13/2020 08:51:33 09/13/2020 09:33:19 Registration Complete 09/13/2020 08:52:01 09/13/2020 09:50:46 09/13/2020 09:50:46 Pending Labs Complete 09/13/2020 09:15:12 09/13/2020 09:15:12 09/13/2020 09:15:12 Pending Labs Complete 09/13/2020 09:15:26 09/13/2020 09:15:26 09/13/2020 09:51:44 Lab Complete 09/13/2020 09:15:26 09/13/2020 09:15:26 09/13/2020 09:51:44 Pending Labs Complete 09/13/2020 09:20:29 09/13/2020 09:20:29 09/13/2020 09:20:37 Lab Complete 09/13/2020 09:20:29 09/13/2020 09:20:29 09/13/2020 09:20:37 CT Complete 09/13/2020 09:23:48 09/13/2020 09:30:36 09/13/2020 09:42:24 Wet Read Complete 09/13/2020 09:33:19 09/13/2020 09:40:49 09/13/2020 09:40:49 Reg Complete Request 09/13/2020 09:50:46 Discharge Complete 09/13/2020 10:41:56 09/13/2020 10:52:16 09/13/2020 10:52:16 Transfer Complete 09/13/2020 10:52:16 09/13/2020 10:52:16 09/13/2020 10:52:16 ADDRESS: [address] [place] [id number] PHYS DOC NOTES: MEDICAL INFORMATION: Prescriptions Given: Medications to Continue with No Changes Other Medications amlodipine-benazepril (amlodipine-benazepril 5 mg-10 mg oral capsule) 1 Capsules By Mouth every day. apixaban (Eliquis 5 mg oral tablet) 1 Tablets By Mouth 2 times a day. atorvastatin (atorvastatin 80 mg Tab) 1 Tablets By Mouth every day. calcitriol (calcitriol 0.25 mcg Cap) 2 Capsules By Mouth once a day (in the evening). colchicine (colchicine 0.6 mg Tab) 1 Tablets By Mouth 2 times a day. doxycycline (doxycycline hyclate 100 mg Cap) 1 Capsules By Mouth 2 times a day. erenumab (Aimovig SureClick Autoinjector-aooe 140 mg/mL subcutaneous solution) 140 Milligram Subcutaneous once a month. famotidine (famotidine 20 mg Tab) 1 Tablets By Mouth 2 times a day. febuxostat (febuxostat 40 mg oral tablet) 1 Tablets By Mouth every day. gabapentin (gabapentin 300 mg Cap) 1 Capsules By Mouth once a day (in the evening). isosorbide mononitrate (isosorbide mononitrate 60 mg ER Tab) 1 Tablets By Mouth once a day (in the evening). levothyroxine (levothyroxine 150 mcg (0.15 mg) Tab) 1 Tablets By Mouth every day. metoprolol (Metoprolol tartrate 50 mg Tab) 1 Tablets By Mouth 2 times a day. pantoprazole (Pantoprazole [address] Tab) 1 Tablets By Mouth every day. pramipexole (pramipexole 1 mg Tab) 2 Tablets By Mouth once a day (in the evening). sucralfate (Carafate 1 gram Tab) 1 Tablets By Mouth 3 times a day. PATIENT EDUCATION INFORMATION: Instructions: Follow up: With: Address: When: [place] [phone] Business (1) In 1 day 09/14/2020 With: Address: When: RADHA BURRIS [address] [place], [place] [phone] Business (1) In 3 days DIAGNOSIS: Angina pectoris; Cephalgia [facility] ED Note-Nursingon 09-13-2020 ED Note-Nursing dc instructions revi ewed, pt verbalized understanding. [facility] ED Note-Nursing Dr. Low spoke wi th pt., pt does not want to be admitted, AMA paperwork filled out. 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 [facility] ED Note-Nursing Thomas from pharmacy in and speaking with pt about his med list, pt informed he is TBA [facility] ED Note-Physicianon 09-14-19 ED Note-Physician Basic Information Time Seen: Maranda ALARCON Bhavesh 09/13/2020 08:52 Chief Complaint pt drove self in from work for chest pain that radiates uip left side of face, h/o afib, several ablations over last years, last one 10 days ago History of Present Illness 65 male presents to the emergency department with chest pain and headache. Patient states around 730 this morning he was doing some exertional activity when he experienced substernal and left-sided chest pain with radiation into his jaw with associated headache as well. Patient states that by the time he drove himself to the ER and is now sitting here in the ER his pain has subsided but it did last for approximately 1 to 2 hours. He has not had anything quite like this before. He does have history of atrial fibrillation for which he takes Eliquis and has had multiple ablations and sees cardiology in [place]. He denies any history of CAD but does have the following risk factors: Family history, former tobacco user, age, and gender. Patient denies any history of strokes denies any changes to speech or vision no numbness or weakness to the upper or lower extremities. He did state when this initially happened he thought he had some trouble with his speech but this resolved quickly he is denying any other neurological symptoms and states that he has had these troubles with his speech occasionally in the past. He denies any recent injuries or illnesses specifically denying any head injury. No other obvious aggravating or alleviating factors. No other prior treatments. No other aggravating or relieving factors no other associated symptoms no other prior treatments or complaints. Family: Reviewed and noncontributory other than history of CAD in the family Social: lives at home former tobacco user Review of systems negative unless otherwise specified in the HPI. Physical Exam Vitals & Measurements T: 36.8 ?C (Oral) HR: 68(Peripheral) RR: 18 BP: 134/84 SpO2: 98% HT: 200.0 cm HT: 200 cm WT: 119.3 kg WT: 119.3 kg BMI: 29.83 General: The patient appears well and in no apparent distress. Patient is resting comfortably on cart. Skin: Warm, dry, no pallor noted. Head: Normocephalic, atraumatic Neck: No JVD Eye: PERRLA, EOMI ENT: Moist mucus membranes Cardiovascular: Regular rate normal peripheral perfusion Respiratory: No respiratory distress no accessory muscle use no obvious audible wheezing Chest Wall: no deformity Musculoskeletal: normal ROM, no deformity, no swelling GI: No obvious distention soft nontender nondistended no guarding rebounding or rigidity Neurological: A&O moves all extremities equal strength and symmetry stroke scale score 0 Psychiatric: Cooperative and appropriate Procedure Patient is not a TPA candidate given stroke scale score of 0 and the fact that the patient is anticoagulated and asymptomatic. Medical Decision Making Work-up in the ER has been reviewed and noted. CT read by the radiologist as no acute pathology and labs are otherwise unremarkable other than mild elevation of creatinine as well as low calcium levels. Patient states he is aware of his low calcium levels this has been worked up extensively in the past. He is currently pain-free. He does not wish to stay in the emergency department or be admitted to the hospital he would like to leave. I did have extensive conversation with the patient about the dangers of leaving as he would need to be admitted as he does have a high heart score and very concerning clinical presentation today. He verbalizes understanding and states that he wishes to go home and states there is no conversation that could be had that would convince him otherwise. Patient is encouraged to return to the emergency department if he should change his mind or have any reoccurrence or changing of his symptoms. He assures me he will follow up with his user experience researcher in the outpatient setting. The patient wishes to sign out AGAINST MEDICAL ADVICE. The nursing staff and physicians begged and pleaded with the patient to stay for further investigations and evaluation. The patient understands and appreciates the admission diagnosis and its prognosis and the likelihood of risks and benefits of leaving the hospital. The patient signed documentation that they would like to leave at their own insistence and against the advice of the physicians. The patient was advised of the possible dangers to their life and health from this departure, and the patient assumes the risks and consequences involved and releases the staff and the Medical Center from any liability in connection with leaving AGAINST MEDICAL ADVICE. The patient understands that we cannot fully assess the patient for the current complaint at this time because they do not want us to perform our investigations. The patient understands and the possibilities of and disability and consequences of leaving AGAINST MEDICAL ADVICE. The patient has been informed of the dangers of leaving AGAINST MEDICAL ADVICE and still (more content not included)... [facility] Comment on above: Result Comment: Elec tronically Signed By: Bhavesh Low DO\.br\Date and Time Signed: 09/13/20 10:42 EDT ED Patient Education Noteon 09-13-2020 ED Patient Education Note [facility] ED Patient Summaryon 021 ED Patient Summary (Inserted Image. Daya ble to display) [address] [address] Patient Discharge Instructions Person Information Name: SUSHILA ANTUNEZ JRICK [place] Age: 65 Years Arrival Date: 09/13/2020 08:43:38 Discharge Diagnosis: Angina pectoris; Cephalgia Primary Care Physician: RADHA BURRIS MD Provider Information Primary Provider: Bhavesh Low DO Advanced Plug Overwrap Machine Tender:None The exam and treatment you received in the Emergency Department were for an urgent problem and are not intended as complete care. It is important that you follow up with a doctor, nurse practitioner, or physician?s membership assistant for ongoing care. If your symptoms become worse or you do not improve as expected and you are unable to reach your usual health care provider, you should return to the Emergency Department. We are available 24 hours a day. YOLI ANTUNEZ JR has been given the following list of patient education materials, prescriptions and follow-up instructions: Follow-up Instructions: With: Address: When: Tono Castaneda [address] [place] [phone] Business (1) In 1 day 09/14/2020 With: Address: When: RADHA BURRIS [facility] [place], [place] [phone] Business (1) In 3 days In the event that this physician does not participate in your insurance network, please consult with your insurance company to find a nearby participating provider. Patient Education Materials: A MESSAGE TO ALL PATIENTS REGARDING OPIOIDS PRESCRIPTION OPIOIDS: WHAT YOU NEED TO KNOW Prescription opioids can be used to help relieve yqfitxyw-um-qlokcf pain and are often prescribed following a surgery or injury, or for certain health conditions. These medications can be an important part of the treatment but also come with serious risks. It is important to work with your healthcare provider to make sure you are getting the safest, most effective care. WHAT ARE THE RISKS AND SIDE EFFECTS OF OPIOID USE? Prescription opioids carry serious risks of addiction and overdose, especially with prolonged use. An opioid overdose, often marked by slowed breathing, can cause sudden . The use of prescription opioids can have a number of side effects as well, even when taken as directed: ? Tolerance?meaning you might need to take more of the medication for the same pain relief ? Physical dependence?meaning you have symptoms of withdrawal when a medication is stopped ? Increased sensitivity to pain ? Constipation ? Nausea, vomiting, and dry mouth ? Sleepiness and dizziness ? Confusion ? Depression ? Low levels of testosterone that can result in lower sex drive, energy, and strength ? Itching and sweating RISKS ARE GREATER WITH: ? History of drug misuse, substance use disorder, or overdose ? Mental health conditions (such as depression or anxiety) ? Sleep apnea ? Older age (65 years and older) ? Avoid alcohol while taking prescription opioids. Also, unless specifically advised by your health care provider, medications to avoid include: ? Benzodiazepines (such as Xanax or Valium) ? Muscle relaxants (such as Soma or Flexeril) ? Hypnotics (such as Ambien or Lunesta) ? Other prescription opioids KNOW YOUR OPTIONS Talk to your health care provider about ways to manage your pain that don?t involve prescription opioids. Some of these options may actually work better and have fewer risks and side effects. Options may include: ? Pain relievers such as acetaminophen, ibuprofen, and naproxen ? Some medication that are also used for depression or seizures ? Physical therapy and exercise ? Cognitive behavioral therapy, a psychological, goal-directed approach, in which patients learn how to modify physical, behavioral, and emotional triggers of pain and stress. IF YOU ARE PRESCRIBED OPIOIDS FOR PAIN: ? Never take opioids in greater amounts or more often than prescribed. ? Follow up with your primary health care provider. o Work together to create a plan on how to manage your pain. o Talk about ways to help manage your pain that don?t involve prescription opioids. o Talk about any and all concerns and side effects. ? Help prevent misuse and abuse o Never sell or share prescription opioids. o Never use another person?s prescription opioids. ? Store prescription opioids in a secure place and out of reach of others (this may include visitors, children, friends, and family). ? Safely dispose of unused prescription opioids: Find your community drug take-back program or your pharmacy mail-back program, or flush them down the toilet, following guidance from the Food and Drug Administration (www.fda.gov/Drugs/Resources ForYou). ? Visit www.cdc.gov/drugoverdose to learn about the risks of opioids abuse and overdose. ? If you believe you may be struggling with addiction, tell your health respiratory care faculty (more content not included)... [facility] Monitor Recordon 09-13-2020 Monitor Record [id number]:127 [facility] Monitor Record [id number]:127 [facility] Troponin 0 Hr.on 09-13-2020 Troponin I.cardiac [Mass/Vol] 2.70 pg/mL Low 15.90-38.4 0 [facility] Comment on above: Result Comment: The 95% CI (Confidence Interval) PPV (Positive Predictive Value) for myocardial infarction in females is 38 pg/mL, in males 51 pg/mL. The results should be used in conjunction with clinical conditions of myocardial infarction. (Access High Sensitivity Troponin I Instructions For Use, [place], November 2017) Performed By: #### 1 [id number], [id number], [id number], [id number], [id number] #### [facility] [address] [place] [address] XR Chest Single Viewon 09-13 XR Chest Single View Exam Date/Time: 09/13/2020 09:33 EDT Reason for Exam: Chest pain Report IMPRESSION: NO ACTIVE PULMONARY DISEASE. CLINICAL HISTORY: Chest pain atrial fibrillation COMPARISON: 01/19/2020. FINDINGS: AP upright portable chest shows upper limit of normal sized heart and unremarkable bronchovascular markings. There is no pneumonic infiltrates or consolidation. There is minimal chronic discoid atelectasis or fibrotic scarring in the left lower lung field. Both costophrenic angles are sharp. There are mild degenerative hypertrophic spurs from middle and lower dorsal vertebral bodies. FINAL REPORT Dictated: 09/13/2020 2:51 pm Oren Ashby M.D. Signed (Electronic Signature): 09/13/2020 2:51 pm Signed by: Oren Ashby M.D. Transcribed by: MALINI Technologist: KAREEM [facility] eGFRon 09-13-2020 GFR/1.73 sq M.predicted among blacks MDRD (S/P/Bld) [Vol rate/Area] 57 mL/min/1.73 m2 Low >=59 [facility] Comment on above: Order Comment: Order added by Discern Expert. Result Comment: eGFR is race adjusted. AA=. Performed By: #### 1 [id number], 3967777, 32906193, 5871320, 6561606 #### [facility] [address] [place] [address] GFR/1.73 sq M.predicted among non-blacks MDRD (S/P/Bld) [Vol rate/Area] 47 mL/min/1.73 m2 Low >=59 [facility] Comment on above: Order Comment: Order added by Discern Expert. Result Comment: [employer] Planner nikki kidney disease could be indicated at eGFR's of less than 60 mL/min/1.73m2. Kidney failure is indicated at less than 15 mL/min/1.73m2. Performed By: #### 1 [id number], 1226360, 91836394, 8816385, [id number] #### [facility] [address] [place] [address] Coding Summary.on 01-25-2020 Coding Summary. CODING DATE: 020 FINAL [facility] STATUS: Home (Routine DC) PAYOR: Medicare APC DESCRIPTION 8006 CT and CTA with Contrast Composite 5521 Level 1 Imaging without Contrast 5024 Level 4 Type A ED Visits ADMIT DX: REASON FOR VISIT DX: R07.9 Chest pain, unspecified R47.01 Aphasia R51 Headache FINAL DX: PRINCIPAL: R07.9 Chest pain, unspecified SECONDARY: R47.01 Aphasia R74.8 Abnormal levels of other serum enzymes E05.90 Thyrotoxicosis, unspecified without thyrotoxic crisis or storm I12.9 Hypertensive chronic kidney disease with stage 1 through stage 4 chronic kidney disease, or unspecified chronic kidney disease N18.3 Chronic kidney disease, stage 3 (moderate) Z87.891 Personal history of nicotine dependence Z98.890 Other specified postprocedural states PYMT PROC APC STAT DESCRIPTION DOCTOR NAME DATE NOTE: The code number assigned matches the documented diagnosis and / or procedure in the patient's chart. However, the narrative phrase printed from the coding software may appear abbreviated, or result in slightly different terminology. Revised Coded By: Yoanna Reyes Revised Date Saved: 01/25/2020 02:44 pm [facility] Discharge Instructionson Discharge Instructions [id number]:127 [facility] Auto Diffon 01-19-2020 Basophils/100 WBC (Bld) 0.8 % Normal 0.0-2.0 [facility] Comment on above: Order Comment: Order Added by Discern Expert. Performed By: #### 2 466669, 87861320, 3215872, 09212954, 49422835, 9956895 ####[facility] [address] [place] [address] Basophils/Leukocyte s Auto (Bld) [Pure # fraction] 0.1 E9/L Normal 0.0-0.2 [facility] Comment on above: Order Comment: Order Added by Discern Expert. Performed By: #### 2 369180, 91329512, 2837096, 87592084, 37366948, 3157626 ####[facility] [address] [place] [address] Eosinophils/100 WBC (Bld) 4.0 % Normal 0.0-8.0 [facility] Comment on above: Order Comment: Order Added by Discern Expert. Performed By: #### 2 975027, 43105759, 3575027, 98340998, 70478652, 8830875 ####[facility] [address] [place] [address] Eosinophils/Leukocy heladio Auto (Bld) [Pure # fraction] 0.3 E9/L Normal 0.0-0.5 [facility] Comment on above: Order Comment: Order Added by Discern Expert. Performed By: #### 2 440467, 29583343, 7782483, 89097617, 88608889, 8859637 ####[address] [place] [address] Lymphocytes/100 WBC (Bld) 21.7 % Normal 14.0-50.0 [facility] Comment on above: Order Comment: Order Added by Discern Expert. Performed By: #### 2 917221, 69966300, 7598832, 53023011, 97904390, 4816966 ####[address] [address] Lymphocytes/Leukocy heladio Auto (Bld) [Pure # fraction] 1.5 E9/L Normal 1.0-4.0 [facility] Comment on above: Order Comment: Order Added by Discern Expert. Performed By: #### 2 553569, 77700750, 3666334, 52877827, 32116134, 8969944 ####[address] [place] [address] Monocytes/100 WBC (Bld) 7.2 % Normal 4.0-14.0 [facility] Comment on above: Order Comment: Order Added by Discern Expert. Performed By: #### 2 362977, 21232834, 1598647, 43820138, 77079675, 5597032 ####[address] [place] [address] Monocytes/Leukocyte s Auto (Bld) [Pure # fraction] 0.5 E9/L Normal 0.2-1.0 [facility] Comment on above: Order Comment: Order Added by Discern Expert. Performed By: #### 2 988992, 43334816, 3120460, 86790311, 22849724, 2582198 ####[facility] [address] [place] [address] Neutrophils/100 WBC (Bld) 66.3 % Normal 36.0-75.0 [facility] Comment on above: Order Comment: Order Added by Discern Expert. Performed By: #### 2 229070, 30174181, 3492541, 92448935, 81406792, 5549596 ####[facility] [address] [place] [address] Neutrophils/Leukocy heladio Auto (Bld) [Pure # fraction] 4.7 E9/L Normal 2.0-7.5 [facility] Comment on above: Order Comment: Order Added by Discern Expert. Performed By: #### 2 286051, 34114022, 6872341, 70732012, 38014983, 9457676 ####[facility] [address] [place] [address] [facility] 01-19-2020 Creatinine [Mass/Vol] 1.3 mg/dL Normal 0.5-1.3 [facility] Comment on above: Performed By: #### 2 251124, 77377703, 4479432, 46740058, 19281023, 3565766 ####[facility] [address] [place] [address] Urea nitrogen [Mass/Vol] 21 mg/dL Normal 5-21 [facility] Comment on above: Performed By: #### 2 460398, 06654867, 1327948, 53477830, 96986790, 0383609 ####[facility] [address] [place] [address] Urea nitrogen/Creatinine [Mass ratio] 16 No Units Normal 10-20 [facility] Comment on above: Performed By: #### 2 109550, 07058447, 9825361, 65061242, 13080050, 2461752 ####[facility] [address] [place] [address] Anion gap [Moles/Vol] 13 mmol/L Normal 6-16 [facility] Comment on above: Performed By: #### 2 906213, 16099603, 5631619, 22894433, 96637661, 6371162 ####[facility] [address] [place] [address] Calcium [Mass/Vol] 7.2 mg/dL Low 8.9-11.1 [facility] Comment on above: Performed By: #### 2 638903, 97949568, 3915505, 63860412, 06021911, 3898217 ####[facility] [address] [place] [address] Chloride [Moles/Vol] 107 mmol/L Normal 101-111 [facility] Comment on above: Performed By: #### 2 136213, 65243440, 3057859, 06154123, 86514700, 2043747 ####[facility] [address] [place] [address] CO2 [Moles/Vol] 23 mmol/L Normal 21-31 [facility] Comment on above: Performed By: #### 2 111054, 23327016, 2433399, 84951385, 36115485, 7224544 ####[facility] [address] [place] [address] Glucose [Mass/Vol] 114 mg/dL Normal 55-199 [facility] Comment on above: Result Comment: If t his glucose result represents a fasting glucose, interpretation should refer to the following reference range: 55-99 mg/dL Performed By: #### 2 544898, 81730452, 6107822, 46227430, 16289622, 5525193 ####[facility] [address] [place] [address] Potassium [Moles/Vol] 3.3 mmol/L Low 3.5-5.3 [facility] Comment on above: Performed By: #### 2 198904, 32996118, 8360730, 68022827, 29333978, 6137755 ####[facility] [address] [place] [address] Sodium [Moles/Vol] 140 mmol/L Normal 135-145 [facility] Comment on above: Performed By: #### 2 895385, 48961506, 8207987, 48676088, 97509667, 1967968 ####[facility] [address] [place] [address] CBC w/ Auto Diffon 0 Erythrocyte distribution width (RBC) [Ratio] 14.6 % High 10.9-14.2 [facility] Comment on above: Performed By: #### 2 082084, 95454141, 9440512, 10979793, 12141709, 3947965 #### [facility] [address] [id number] Hematocrit (Bld) [Volume fraction] 38.2 % Normal 37.7-49.0 [facility] Comment on above: Performed By: #### 2 [id number], [id number], [id number], [id number], [id number], [id number] #### [facility] [address] [place] [address] Hemoglobin (Bld) [Mass/Vol] 12.7 g/dL Low 13.5-17.5 [facility] Comment on above: Performed By: #### 2 [id number], [id number], [id number], [id number], [id number], [id number] #### [facility] [address] [place] [address] MCH (RBC) [Entitic mass] 27.2 pg Normal 27.0-34.0 [facility] Comment on above: Performed By: #### 2 110231, [id number], [id number], [id number], [id number], [id number] #### [facility] [address] [place] [address] MCHC (RBC) [Mass/Vol] 33.2 g/dL Normal 31.4-36.0 [facility] Comment on above: Performed By: #### 2 859390, [id number], 4683237, [id number], [id number], [id number] #### [facility] [address] [place] [address] MCV (RBC) [Entitic vol] 82.1 fL Normal 80.0-100.0 [facility] Comment on above: Performed By: #### 2 579690, [id number], 5728958, 86433083, [id number], [id number] #### [facility] [address] [place] [id number] Platelet mean volume (Bld) [Entitic vol] 8.2 fL Normal 6.4-10.8 [facility] Comment on above: Performed By: #### 2 238112, [id number], 1847348, [id number], [id number], 0591010 #### [facility] [address] [place] [address] Platelets (Bld) [#/Vol] 226.0 E9/L Normal 150.0-500. 0 [facility] Comment on above: Performed By: #### 2 901083, [id number], 8761186, [id number], [id number], [id number] #### [facility] [address] [place] [address] RBC (Bld) [#/Vol] 4.7 E12/L Normal 4.3-5.9 [facility] Comment on above: Performed By: #### 2 034913, [id number], 5714978, 96100475, 11415543, 1865860 #### [facility] [address] [place] [address] WBC corrected for nucl RBC Auto (Bld) [#/Vol] 7.1 E9/L Normal 4.0-11.0 [facility] Comment on above: Performed By: #### 2 484137, [id number], 6008589, 30984601, 99397251, [id number] #### [facility] [address] [place] [address] CTA Headon 01-19-2020 CTA Head Exam Date/Time: 01/19/2020 16:42 EDT Reason for Exam: Stroke, follow up;Other (please specify) Report PLEASE SEE CTA Neck REPORT DATED: 01/19/2020. All CT scans at this facility use dose modulation, iterative reconstruction, and/or weight based dosing when appropriate to reduce radiation dose to as low as reasonably achievable. FINAL REPORT Dictated: 01/19/2020 5:02 pm Bay Gonsales MD Signed (Electronic Signature): 01/19/2020 5:02 pm Signed by: Bay Gonsales MD Transcribed by: MALINI Technologist: KIMBERLY Technical Comments GFR (mL/min/1/73m2) 55 Contrast: Isovue 370 Contrast amount in ml's: 70 Normal [facility] CTA Neckon 01-19-2020 CTA Neck Exam Date/Time: 01/19/2020 16:42 EDT Reason for Exam: Stroke, follow up;Other (please specify) Report IMPRESSION: NEGATIVE NONCONTRAST HEAD CT. ESSENTIALLY NEGATIVE HEAD AND NECK CTAs, NOTED. EXAM: CTA Head, CTA Neck DATE: 01/19/2020 CLINICAL HISTORY: Aphasia. COMPARISON: None available. TECHNIQUE: Spiral unenhanced images were obtained of the head with routine multiplanar reconstructions were performed. Spiral enhanced images were obtained of the aortic arch to the skull vertex after the infusion of approximately 70 mL of Isovue 370 contrast with head and neck CTA protocol. Luminal narrowings are estimated by NASCET criteria. Routine and volume rendered images were obtained on a three-dimensional workstation. All CT scans at this facility use dose modulation, iterative reconstruction, and/or weight based dosing when appropriate to reduce radiation dose to as low as reasonably achievable. HEAD CT/CTA FINDINGS: There is no intracranial hemorrhage, mass effect, midline shift, extra-axial collection, significant atrophy or white matter changes for age, by CT. Mild calcific plaquing is present of the cavernous carotids without significant luminal narrowing. There is no other significant atherosclerotic plaquing, evidence of thromboembolus, branch occlusion, intracranial aneurysm, or developmental vascular patient was identified. There is no abnormal parenchymal enhancement identified. NECK CTA FINDINGS: Minimal plaquing is present in the carotid bulbs and vertebral artery origins are Report tortuous with mild calcified plaquing. There is no significant stenosis, dissection, or incidental findings of concern identified in the neck. There has been previous thyroidectomy and C3-C4 ACDF, which are otherwise unremarkable Minimal probable atelectasis is noted of the visualized lung apices. FINAL REPORT Dictated: 01/19/2020 5:01 pm Bay Gonsales MD Signed (Electronic Signature): 01/19/2020 5:01 pm Signed by: Bay Gonsales MD Transcribed by: MALINI Technologist: KIMBERLY Technical Comments GFR (mL/min/1/73m2) >60 Contrast: Isovue 370 Contrast amount in ml's: 70 Normal [facility] Capillary Glucose POCon 12-22 Glucose [Mass/Vol] 111 mg/dL High 55-99 [facility] Comment on above: Result Comment: Erika heart RN/ Performed By: #### 2 [id number] ####[facility] [address] [place] [address] Consent for Treatmenton 12-22 Consent for Treatment [id number] Normal [facility] ED Clinical Summaryon 2019 ED Clinical Summary (Inserted Image. Daya ble to display) [place] [id number] ED Clinical Summary Person Information Name: YOLI ANTUNEZ JR [place] Age: 64 Years : 1955 Sex: Male Language: Ecuadorean PCP: RADHA BURRIS MD Marital Status: Visit Id: Visit Reason: Headache; HEADACHES Speciality: Acuity: 3 Enc Type: Emergency Med Service: Emergency Arrival: 01/19/2020 15:06:59 Discharge: 01/19/2020 17:29:25 LOS: 000 02:23 Checkin: 01/19/2020 15:06:59 Checkout: 01/19/2020 17:29:25 Dispo Type: Home (Routine DC) EVENTS: Event Name Event Status Request Date/Time Start Date/Time Complete Date/Time Arrive Complete 01/19/2020 15:06:59 01/19/2020 15:06:59 01/19/2020 15:06:59 Document Home Meds Request 01/19/2020 15:06:59 Triage Complete 01/19/2020 15:06:59 01/19/2020 15:10:09 01/19/2020 15:10:09 Bed Assign Complete 01/19/2020 15:10:21 01/19/2020 15:10:21 01/19/2020 15:10:21 Dr Exam Complete 01/19/2020 15:10:21 01/19/2020 15:13:18 01/19/2020 15:13:18 RN Exam Complete 01/19/2020 15:10:21 01/19/2020 15:23:38 01/19/2020 15:23:38 Registration Complete 01/19/2020 15:13:18 01/19/2020 15:59:34 01/19/2020 15:59:34 EKG Complete 01/19/2020 15:15:04 01/19/2020 15:33:46 NPO Request 01/19/2020 15:15:04 Pending Labs Complete 01/19/2020 15:15:04 01/19/2020 16:34:40 Lab Complete 01/19/2020 15:15:04 01/19/2020 15:58:27 Patient Care Request 01/19/2020 15:15:04 RT Request 01/19/2020 15:15:04 CT Cancel 01/19/2020 15:15:04 01/19/2020 16:07:45 Pending Labs Complete 01/19/2020 15:28:51 01/19/2020 15:28:51 01/19/2020 15:28:51 CT Complete 01/19/2020 15:31:03 01/19/2020 16:07:17 01/19/2020 16:42:16 X-Ray Complete 01/19/2020 15:35:38 01/19/2020 16:32:24 01/19/2020 16:32:38 Pending Labs Complete 01/19/2020 15:44:14 01/19/2020 15:44:14 01/19/2020 15:58:28 Lab Complete 01/19/2020 15:44:14 01/19/2020 15:44:14 01/19/2020 15:58:28 Pending Labs Complete 01/19/2020 15:54:30 01/19/2020 15:54:30 01/19/2020 15:54:36 Lab Complete 01/19/2020 15:54:30 01/19/2020 15:54:30 01/19/2020 15:54:36 Reg Complete Request 01/19/2020 15:59:34 Wet Read Complete 01/19/2020 16:32:38 01/19/2020 16:36:39 01/19/2020 16:36:39 Discharge Complete 01/19/2020 17:01:59 01/19/2020 17:29:31 01/19/2020 17:29:31 Transfer Complete 01/19/2020 17:29:31 01/19/2020 17:29:31 01/19/2020 17:29:31 ADDRESS: [address] [place] [id number] PHYS DOC NOTES: MEDICAL INFORMATION: Prescriptions Given: Medications to Continue with No Changes Other Medications amlodipine-atorvastatin (amlodipine-atorvastatin 5 mg-10 mg oral tablet) 1 Tablets By Mouth 2 times a day. calcitriol every day. febuxostat (Uloric 40 mg oral tablet) 1 Tablets By Mouth every day. levothyroxine (Synthroid 150 mcg (0.15 mg) Tab) By Mouth every day. Non-Formulary Medication (Misc Medication) oxycodone By Mouth. pramipexole (Mirapex) By Mouth 3 times a day. tizanidine (Zanaflex 4 mg oral capsule) By Mouth 3 times a day. PATIENT EDUCATION INFORMATION: Instructions: Chest Pain (Nonspecific); Aphasia Follow up: With: Address: When: [place] [address] [facility] (7) In 3 days 01/22/2020 With: Address: When: Follow-up with your neurologist as directed at [facility] In 3 days 01/22/2020 DIAGNOSIS: Abnormal cardiac enzyme level; Aphasia; Chest pain Normal [facility] ED Note-Physicianon 09-29-20 20 ED Note-Physician Basic Information Time Seen: Bhavesh Low DO 01/19/2020 15:13 Chief Complaint From home, patient complains of headaches since . Sent to ED by . States he has had episodes of aphasia since ablation on . History of Present Illness 64 male presents to the emergency department with headache and aphasia. Patient states that he developed a headache and aphasia last . He was undergoing a procedure at [facility] for ablation for his atrial fibrillation. Patient states that 1 hour after having the ablation he developed aphasia and spent considerable time in the hospital. He believes he underwent their stroke protocol testing and was eventually released from the hospital. Patient states again this morning he had one episode of aphasia in addition to these intermittent headaches that are been happening since last . He was called by the neurologist at [facility] 1 hour prior to arrival and was told he needed to come to the emergency department immediately for CT angiogram of his head and neck. He is unclear as to why he received this call or why this call occurred several days after his recent hospitalization. He does tell me that he has been taking his blood thinner which he believes to be Eliquis and potentially one other medication which she cannot recall. He has been taking lsyi-csk-sjzldvc medications for his headache as well and his headache has subsided. He reports no numbness or weakness to the bilateral upper or lower extremities, no dysarthria, no changes to his vision. When specifically asked about chest pain the patient does state that he has had some occasional chest discomfort recently as well. He reports no history of CAD but does have multiple risk factors including age, gender, hypertension, and former tobacco user in addition to his history of possible strokes. No other aggravating or relieving factors no other associated symptoms no other prior treatments or complaints. Family: Reviewed and noncontributory Social: lives at home Review of systems negative unless otherwise specified in the HPI. Physical Exam Vitals & Measurements T: 36.8 ?C (Oral) HR: 78(Peripheral) RR: 14 BP: 146/92 SpO2: 98% HT: 199.0 cm HT: 199 cm WT: 115.0 kg WT: 115 kg BMI: 29.04 General: The patient appears well and in no apparent distress. Patient is resting comfortably on cart. Skin: Warm, dry, no pallor noted. Head: Normocephalic, atraumatic Neck: No JVD Eye: PERRLA, EOMI ENT: Moist mucus membranes Cardiovascular: Regular rate normal peripheral perfusion Respiratory: No respiratory distress no accessory muscle use no obvious audible wheezing Chest Wall: no deformity Musculoskeletal: normal ROM, no deformity, no swelling GI: No obvious distention soft nontender nondistended no guarding rebounding or rigidity Neurological: A&O moves all extremities equal strength and symmetry stroke scale score is 0 no dysarthria no aphasia no significant neurological findings. Psychiatric: Cooperative and appropriate Medical Decision Making Work-up in the ER has been reviewed and noted. Patient does have mildly elevated troponin he tells me that his troponin has been elevated because he had this ablation performed 5 days ago which clinically makes sense. I did tell him however without a repeat troponin there is no way for me to know if the troponin is trending down or trending up. CT angiogram read by the radiologist as no large vessel occlusions and CT brain was otherwise negative. Patient has completely benign NIH stroke scale exam. He does not wish to stay for evaluation of his aphasia nor elevation of his troponin. Patient tells me he just underwent full work-up at [facility] including negative MRI. He is not exactly sure why the neurologist sent the patient here today for CT angiogram but it is negative. He did request copies of the imaging and I did provide him with this on disc and we sent them electronically to [facility] as well. He is discharged home with instructions to return to the ER for symptoms should change worsen or recur or if he changes his mind to be admitted for observation. Assessment/Plan Abnormal cardiac enzyme level (R74.8: Abnormal levels of other serum enzymes) Aphasia (R47.01: Aphasia) Chest pain (R07.9: Chest pain, unspecified) Orders: Automated Diff Basic Metabolic Panel CBC w/ Auto Diff Gilby Stroke Scale Communication Order Physician to Nursing Continuous Pulse Oximetry CTA Head CTA Neck ECG 12 Lead Adult ED Cardiac Monitoring eGFR NPO Diet Oxygen Therapy PT & PTT Routine Capillary Glucose POC Saline Lock Insert Stroke Quality Measures Troponin 0 Hr. Vital Signs XR Chest Single View Disposition Plan Discharge Prescription List Prescriptions No active prescription medications Follow-up With When Contact Information Earle Jon In 3 days 01/22/2020 EDT [address] [place] [address]- Business (1) Additional Instructions: (more content not included)... Normal [facility] Comment on above: Result Comment: Madhu monique Signed By: Bhavesh Low DO\.dionne\Date and Time Signed: 01/19/20 17:05 EDT ED Patient Education Noteon 01-19-2020 ED Patient Education Note Family Medicine Chest Pain (Nonspecific) It is often hard to give a specific diagnosis for the cause of chest pain. There is always a chance that your pain could be related to something serious, such as a heart attack or a blood clot in the lungs. You need to follow up with your health care provider for further evaluation. CAUSES ? Heartburn. ? Pneumonia or bronchitis. ? Anxiety or stress. ? Inflammation around your heart (pericarditis) or lung (pleuritis or pleurisy). ? A blood clot in the lung. ? A collapsed lung (pneumothorax). It can develop suddenly on its own (spontaneous pneumothorax) or from trauma to the chest. ? Shingles infection (herpes zoster virus). The chest wall is composed of bones, muscles, and cartilage. Any of these can be the source of the pain. ? The bones can be bruised by injury. ? The muscles or cartilage can be strained by coughing or overwork. ? The cartilage can be affected by inflammation and become sore (costochondritis). DIAGNOSIS Lab tests or other studies may be needed to find the cause of your pain. Your health care provider may have you take a test called an ambulatory electrocardiogram (ECG). An ECG records your heartbeat patterns over a 24-hour period. You may also have other tests, such as: ? Transthoracic echocardiogram (TTE). During echocardiography, sound waves are used to evaluate how blood flows through your heart. ? Transesophageal echocardiogram (CHANTELLE). ? Cardiac monitoring. This allows your health care provider to monitor your heart rate and rhythm in real time. ? Holter monitor. This is a portable device that records your heartbeat and can help diagnose heart arrhythmias. It allows your health care provider to track your heart activity for several days, if needed. ? Stress tests by exercise or by giving medicine that makes the heart beat faster. TREATMENT ? Treatment depends on what may be causing your chest pain. Treatment may include: ? Acid blockers for heartburn. ? Anti-inflammatory medicine. ? Pain medicine for inflammatory conditions. ? Antibiotics if an infection is present. ? You may be advised to change lifestyle habits. This includes stopping smoking and avoiding alcohol, caffeine, and chocolate. ? You may be advised to keep your head raised (elevated) when sleeping. This reduces the chance of acid going backward from your stomach into your esophagus. Most of the time, nonspecific chest pain will improve within 2?3 days with rest and mild pain medicine. HOME CARE INSTRUCTIONS ? If antibiotics were prescribed, take them as directed. Finish them even if you start to feel better. ? For the next few days, avoid physical activities that bring on chest pain. Continue physical activities as directed. ? Do not use any tobacco products, including cigarettes, chewing tobacco, or electronic cigarettes. ? Avoid drinking alcohol. ? Only take medicine as directed by your health care provider. ? Follow your health care provider's suggestions for further testing if your chest pain does not go away. ? Keep any follow-up appointments you made. If you do not go to an appointment, you could develop lasting (chronic) problems with pain. If there is any problem keeping an appointment, call to reschedule. SEEK MEDICAL CARE IF: ? Your chest pain does not go away, even after treatment. ? You have a rash with blisters on your chest. ? You have a fever. SEEK IMMEDIATE MEDICAL CARE IF: ? You have increased chest pain or pain that spreads to your arm, neck, jaw, back, or abdomen. ? You have shortness of breath. ? You have an increasing cough, or you cough up blood. ? You have severe back or abdominal pain. ? You feel nauseous or vomit. ? You have severe weakness. ? You faint. ? You have chills. This is an emergency. Do not wait to see if the pain will go away. Get medical help at once. Call your local emergency services (911 in [place] Do not drive yourself to the hospital. MAKE SURE YOU: ? Understand these instructions. ? Will watch your condition. ? Will get help right away if you are not doing well or get worse. Document Released: 01/16/2006 Document Revised: 04/13/2014 Document Reviewed: 11/11/2008 ExitCare? Patient Information ?2015 [employer]. This information is not intended to replace advice given to you by your health care provider. Make sure you discuss any questions you have with your health care provider. Aphasia Aphasia is a neurological disorder caused by damage to the parts of the brain that control language. CAUSES Aphasia is not a disease, but a symptom of brain damage. Aphasia is commonly seen in adults who have suffered a stroke. Aphasia also can result from: ? A brain tumor. ? Infection. ? Head injury. ? A rare type of dementia called Primary Progressive Aphasia. Common types of dementia may be associated with aphasia but can also exist without language problems. SYMPTOMS Primary signs of t (more content not included)... Normal [facility] ED Patient Summaryon 020 ED Patient Summary (Inserted Image. Daya ble to display) [address] [address] Patient Discharge Instructions Person Information Name: YOLI ANTUNEZ JR Age: 64 Years Arrival Date: 01/19/2020 15:06:59 Discharge Diagnosis: Abnormal cardiac enzyme level; Aphasia; Chest pain Primary Care Physician: RADHA BURRIS MD Provider Information Primary Provider: Bhavesh Low DO Advanced Plug Overwrap Machine Tender:None The exam and treatment you received in the Emergency Department were for an urgent problem and are not intended as complete care. It is important that you follow up with a doctor, nurse practitioner, or physician?s membership assistant for ongoing care. If your symptoms become worse or you do not improve as expected and you are unable to reach your usual health care provider, you should return to the Emergency Department. We are available 24 hours a day. YOLI ANTUNEZ JR has been given the following list of patient education materials, prescriptions and follow-up instructions: Follow-up Instructions: With: Address: When: Earle Jon [address] [place], [place] [id number] [facility] (1) In 3 days 01/22/2020 With: Address: When: Follow-up with your neurologist as directed at [facility] In 3 days 01/22/2020 In the event that this physician does not participate in your insurance network, please consult with your insurance company to find a nearby participating provider. Patient Education Materials: Chest Pain (Nonspecific); Aphasia A MESSAGE TO ALL PATIENTS REGARDING OPIOIDS PRESCRIPTION OPIOIDS: WHAT YOU NEED TO KNOW Prescription opioids can be used to help relieve ftmsygnh-ia-jzaiov pain and are often prescribed following a surgery or injury, or for certain health conditions. These medications can be an important part of the treatment but also come with serious risks. It is important to work with your healthcare provider to make sure you are getting the safest, most effective care. WHAT ARE THE RISKS AND SIDE EFFECTS OF OPIOID USE? Prescription opioids carry serious risks of addiction and overdose, especially with prolonged use. An opioid overdose, often marked by slowed breathing, can cause sudden . The use of prescription opioids can have a number of side effects as well, even when taken as directed: ? Tolerance?meaning you might need to take more of the medication for the same pain relief ? Physical dependence?meaning you have symptoms of withdrawal when a medication is stopped ? Increased sensitivity to pain ? Constipation ? Nausea, vomiting, and dry mouth ? Sleepiness and dizziness ? Confusion ? Depression ? Low levels of testosterone that can result in lower sex drive, energy, and strength ? Itching and sweating RISKS ARE GREATER WITH: ? History of drug misuse, substance use disorder, or overdose ? Mental health conditions (such as depression or anxiety) ? Sleep apnea ? Older age (65 years and older) ? Avoid alcohol while taking prescription opioids. Also, unless specifically advised by your health care provider, medications to avoid include: ? Benzodiazepines (such as Xanax or Valium) ? Muscle relaxants (such as Soma or Flexeril) ? Hypnotics (such as Ambien or Lunesta) ? Other prescription opioids KNOW YOUR OPTIONS Talk to your health care provider about ways to manage your pain that don?t involve prescription opioids. Some of these options may actually work better and have fewer risks and side effects. Options may include: ? Pain relievers such as acetaminophen, ibuprofen, and naproxen ? Some medication that are also used for depression or seizures ? Physical therapy and exercise ? Cognitive behavioral therapy, a psychological, goal-directed approach, in which patients learn how to modify physical, behavioral, and emotional triggers of pain and stress. IF YOU ARE PRESCRIBED OPIOIDS FOR PAIN: ? Never take opioids in greater amounts or more often than prescribed. ? Follow up with your primary health care provider. o Work together to create a plan on how to manage your pain. o Talk about ways to help manage your pain that don?t involve prescription opioids. o Talk about any and all concerns and side effects. ? Help prevent misuse and abuse o Never sell or share prescription opioids. o Never use another person?s prescription opioids. ? Store prescription opioids in a secure place and out of reach of others (this may include visitors, children, friends, and family). ? Safely dispose of unused prescription opioids: Find your community drug take-back program or your pharmacy mail-back program, or flush them down the toilet, following guidance from the Food and Drug Administration (www.fda.gov/Drugs/Resources ForYou). ? Visit www.cdc.gov/drugoverdose to learn about the risks of opioids abuse and overdose. ? If you believe you may be struggling with addiction (more content not included)... Normal [facility] PT & PTTon 01-19-2020 aPTT Coag (PPP) [Time] 36.5 second(s) Normal 25.1-36.5 [facility] Comment on above: Result Comment: Hepa rin therapeutic range (represented by Anti-Factor Xa activity of 0.2 - 0.4 U/mL) corresponds to PTT of 56.6 - 109.0 sec. Performed By: #### 2 [id number], [id number], [id number], [id number], [id number], [id number] ####[facility] [address] [place] [address] INR Coag (PPP) [Relative time] 1.1 {INR} Invalid Interpretation Code [facility] Comment on above: Result Comment: INR results are specifically intended to assess patients stabilized on long-term Anticoagulation therapy suggested INR?s ?Less Intensive Anticoagulation? 2.0 ? 3.0 Conventional Range 3.0 ? 4.5 Performed By: #### 2 [id number], [id number], [id number], [id number], [id number] ####[facility] [address] [place] [address] PT Coag (PPP) [Time] 13.1 second(s) High 10.2-12.9 [facility] Comment on above: Performed By: #### 2 [id number], [id number], [id number], [id number], [id number] ####[facility] [address] [place] [address] Troponin 0 Hr.on 01-19-2020 Troponin I.cardiac [Mass/Vol] 126.30 pg/mL Abnormal 15.90-38.4 0 [facility] Comment on above: Result Comment: Crit ical Result verified by repeat analysis\ Critical Result I_hsTnI:126.3 Called to NANCY NELSON at ER by PHONG MEANS and read back for confirmation at 01/19/2020 16:14:20 The 95% CI (Confidence Interval) PPV (Positive Predictive Value) for myocardial infarction in females is 38 pg/mL, in males 51 pg/mL. The results should be used in conjunction with clinical conditions of myocardial infarction. (Access High Sensitivity Troponin I Instructions For Use, [employer], November 2017) Performed By: #### 2 [id number], [id number], [id number], [id number], [id number], [id number] ####[facility] [address] [place] [address] XR Chest Single Viewon 01-18 XR Chest Single View Exam Date/Time: 01/19/2020 16:32 EDT Reason for Exam: Chest pain Report IMPRESSION: NO EVIDENCE OF ACTIVE CHEST DISEASE. CLINICAL HISTORY: Chest pain. COMMENT: AP portable. The heart is upper limits of normal in size. The mediastinum is unremarkable. There is minimal linear atelectasis or fibrosis at the left lung base. No consolidated airspace opacification nor pleural effusion is evident. FINAL REPORT Dictated: 01/19/2020 4:37 pm Andres Torres M.D. Signed (Electronic Signature): 01/19/2020 4:37 pm Signed by: Andres Torres M.D. Transcribed by: MALINI Technologist: LMS Normal [facility] eGFRon 01-19-2020 GFR/1.73 sq M.predicted among blacks MDRD (S/P/Bld) [Vol rate/Area] mL/min/{1.73_m2} Normal >=59 [facility] Comment on above: Order Comment: Order added by Discern Expert. Result Comment: eGFR is race adjusted. AA=. Performed By: #### 2 [id number], [id number], [id number], [id number], [id number], [id number] ####[facility] [address] [place] [address] GFR/1.73 sq M.predicted among non-blacks MDRD (S/P/Bld) [Vol rate/Area] 55 mL/min/1.73 m2 Low >=59 [facility] Comment on above: Order Comment: Order added by Discern Expert. Result Comment: [employer] Planner nikki kidney disease could be indicated at eGFR's of less than 60 mL/min/1.73m2. Kidney failure is indicated at less than 15 mL/min/1.73m2. Performed By: #### 2 [id number], [id number], [id number] ####[facility] [address] [place] [address] Creatinineon 04-28-2018 Creatinine mass conc 1.47 mg/dL High 0.50-1.30 [facility] Comment on above: Performed By: #### 1 [id number] ####[facility] [address] [place] [address] GFR/1.73 sq M.predicted MDRD vol rate/area 48 mL/min/{1.73_m2} Normal [facility] Comment on above: Result Comment: Inte rpretation for Chronic Kidney Disease:Stages 1&2 >60 Healthy or potential kidney damage.Mild decrease of GFR.Stage 3 30-59 Moderate decrease of GFR.Stage 4 15-29 Severe decrease of GFR.Stage 5 <15 Kidney failure or on dialysis. Performed By: #### 1 [id number] ####[facility] [address] [place] [address] Electrolyte Panelon 04-28-19 19 Anion gap 3 molar conc 10 mmol/L Normal 10-20 [facility] Comment on above: Performed By: #### 1 [id number] ####[facility] [address] [place] [address] Chloride molar conc 110 mmol/L High 98-107 [facility] Comment on above: Performed By: #### 1 [id number] ####[facility] [address] [place] [address] HCO3 molar conc (Bld) 25 mmol/L Normal 21-32 [facility] Comment on above: Performed By: #### 1 [id number] ####[facility] [address] [place] [address] Potassium molar conc 4.2 mmol/L Normal 3.5-5.1 [facility] Comment on above: Performed By: #### 1 [id number] ####[facility] [address] [place] [address] Sodium molar conc 141 mmol/L Normal 136-145 [facility] Comment on above: Performed By: #### 1 [id number] ####[facility] [address] [place] [address] Urea Nitrogenon 04-28-2018 Urea nitrogen mass conc 32 mg/dL High 6-23 [facility] Comment on above: Performed By: #### 1 [id number] ####[facility] [address] [place] [address] Vital Signs Date Time Vital Sign Value Performing Clinician Facility 04-16-2023 11:58-0500 Diastolic blood pressure 77 mm[Hg] MD Radha Burris Work Phone: [facility] 04-16-2023 11:58-0500 Heart rate 60 /min MD Radha Burris Work Phone: [facility] 04-16-2023 11:58-0500 Respiratory rate 16 /min MD Radha Burris Work Phone: [facility] 04-16-2023 11:58-0500 SaO2% (BldA) [Mass fraction] 100 % MD Radha Burris Work Phone: [facility] 04-16-2023 11:58-0500 Systolic blood pressure 122 mm[Hg] MD Radha Burris Work Phone: [facility] 04-16-2023 09:35-0500 Body height 198.12 cm MD Radha Burris Work Phone: [facility] 04-16-2023 09:35-0500 Body weight 111.13 kg MD Radha Burris Work Phone: [facility] 03-20-2023 14:00-0500 Body height Imad Asaad Other [facility] Other 03-20-2023 14:00-0500 Body mass index (BMI) [Ratio] 30.34 kg/m2 Imad Asaad Other [facility] Other 03-20-2023 14:00-0500 Body weight 116.08 kg Imad Asaad Other [facility] Other 03-20-2023 14:00-0500 Diastolic blood pressure 70 mm[Hg] Imad Asaad Other [facility] Other 03-20-2023 14:00-0500 Systolic blood pressure 120 mm[Hg] Imad Asaad Other [facility] Other 01-31-2023 14:51-0400 Body mass index (BMI) [Ratio] 28.89 kg/m2 Yossi Chen MD Work Phone: [facility] 01-31-2023 14:51-0400 Body weight 113.4 kg Yossi Chen MD Work Phone: [facility] 12-31-2022 15:12-0400 Body height 198.1 cm Sarbjit Richardson TREATING PLANT OPERATOR.ADMINISTRATIVE DIRECTOR Work Phone: [facility] 12-31-2022 15:12-0400 Body weight 114.76 kg Sarbjit Richardson TREATING PLANT OPERATOR.ADMINISTRATIVE DIRECTOR Work Phone: [facility] 12-31-2022 15:12-0400 Diastolic blood pressure 77 mm[Hg] Sarbjit Richardson TREATING PLANT OPERATOR.ADMINISTRATIVE DIRECTOR Work Phone: [facility] 12-31-2022 15:12-0400 Heart rate 69 /min Sarbjit Richardson TREATING PLANT OPERATOR.ADMINISTRATIVE DIRECTOR Work Phone: [facility] 12-31-2022 15:12-0400 Systolic blood pressure 123 mm[Hg] Sarbjit Richardson TREATING PLANT OPERATOR.ADMINISTRATIVE DIRECTOR Work Phone: [facility] 11-29-2022 13:43-0400 Body height 198.12 cm Radha Burris Work Phone: [facility] DO Work Phone: 11-29-2022 13:43-0400 Body mass index (BMI) [Ratio] 29.24 kg/m2 Radha Burris Work Phone: [facility] [address] DO Work Phone: 11-29-2022 13:43-0400 Body surface area Derived from formula 2.49 m2 Radha Burris Work Phone: [facility] [address] DO Work Phone: 11-29-2022 13:43-0400 Body weight 114.76 kg Radha Burris Work Phone: [facility] [address] DO Work Phone: 11-12-2022 14:23-0400 Body height 198.12 cm Radha Burris Work Phone: [facility] [address] DO Work Phone: 11-12-2022 14:23-0400 Body mass index (BMI) [Ratio] 29.82 kg/m2 Radha Burris Work Phone: [facility] [address] DO Work Phone: 11-12-2022 14:23-0400 Body surface area Derived from formula 2.52 m2 Radha Burris Work Phone: [facility] [address] DO Work Phone: 11-12-2022 14:23-0400 Body weight 117.03 kg Radha Burris Work Phone: [facility] [address] DO Work Phone: 11-12-2022 14:23-0400 Diastolic blood pressure 65 mm[Hg] Radha Burris Work Phone: [facility] [address] DO Work Phone: 11-12-2022 14:23-0400 Heart rate 77 /min Radha Burris Work Phone: [facility] [address] DO Work Phone: 11-12-2022 14:23-0400 Systolic blood pressure 104 mm[Hg] Radha Burris Work Phone: [facility] DO Work Phone: 10-18-2022 14:32-0400 Diastolic blood pressure 61 mm[Hg] Infusion 3 Work Phone: [facility] 10-18-2022 14:32-0400 Heart rate 68 /min Infusion 3 Work Phone: [facility] 10-18-2022 14:32-0400 Respiratory rate 14 /min Infusion 3 Work Phone: [facility] 10-18-2022 14:32-0400 Systolic blood pressure 111 mm[Hg] Infusion 3 Work Phone: [facility] 08-30-2022 07:01-0400 Body height 184.4 cm Beth Dieog MD Work Phone: [facility] 08-30-2022 07:01-0400 Body mass index (BMI) [Ratio] 33.41 kg/m2 Beth Diego MD Work Phone: [facility] 08-30-2022 07:01-0400 Body weight 113.6 kg Beth Diego MD Work Phone: [facility] 08-17-2022 10:33-0400 Body height 198.12 cm Radha Burris Work Phone: XW-Iknvjvwpkorbxp-Tu rma MAC1 [address] Work Phone: 08-17-2022 10:33-0400 Body mass index (BMI) [Ratio] 29.99 kg/m2 Radha Burris Work Phone: IE-Gtszceaqpdtszp-Ee rma [address] Work Phone: 08-17-2022 10:33-0400 Body surface area Derived from formula 2.52 m2 Radha Burris Work Phone: KZ-Ertkirunzwwgmn-Ak rma [address] Work Phone: 08-17-2022 10:33-0400 Body temperature 97.8 [degF] Radha Burris Work Phone: EB-Iuefhnvtifrzvl-Qe rma [address] Work Phone: 08-17-2022 10:33-0400 Body weight 117.71 kg Radha Burris Work Phone: HX-Xjvobrlbauyruj-Xi rma MAC[address] Work Phone: 08-17-2022 10:33-0400 Diastolic blood pressure 74 mm[Hg] Radha Burris Work Phone: MY-Ulzgdooddxotfk-Fr rma MAC[address] Work Phone: 08-17-2022 10:33-0400 Heart rate 82 /min Radha Burris Work Phone: HT-Vmbdkoidojyzqj-Va rma MAC1 [address] Work Phone: 08-17-2022 10:33-0400 Respiratory rate 16 /min Radha Burris Work Phone: XM-Vfnnnbczexwrwn-Fg rma MAC1 [address] Work Phone: 08-17-2022 10:33-0400 SaO2% (BldA) [Mass fraction] 98 % Radha Burris Work Phone: PA-Jiqmoigsfjlvjh-Wg rma MAC1 [address] Work Phone: 08-17-2022 10:33-0400 Systolic blood pressure 111 mm[Hg] Radha Burris Work Phone: SW-Efpknlfoifzwml-Mu rma MAC1 [address] Work Phone: 07-26-2022 14:25-0400 Diastolic blood pressure 77 mm[Hg] Infusion 3 Work Phone: [facility] 07-26-2022 14:25-0400 Heart rate 88 /min Infusion 3 Work Phone: [facility] 07-26-2022 14:25-0400 Systolic blood pressure 120 mm[Hg] Infusion 3 Work Phone: [facility] 07-17-2022 08:57-0400 Body height 198.12 cm Radha Burris Work Phone: XW-[facility]exhsjtezrbexp[facility] 4100 Work Phone: 07-17-2022 08:57-0400 Body mass index (BMI) [Ratio] 29.08 kg/m2 Radha Burris Work Phone: QG-Cwofmphwsrwyqg-[facility] 4100 Work Phone: 07-17-2022 08:57-0400 Body surface area Derived from formula 2.49 m2 Radha Lovell Fatuma Work Phone: JK-[facility]qgaofuqkv[facility] 4103 Work Phone: 07-17-2022 08:57-0400 Body temperature 98.8 [degF] Radha Collinshman Work Phone: JT[facility]btlquekhka[facility] 4106 Work Phone: 07-17-2022 08:57-0400 Body weight 114.13 kg Radha Lovell Fatuma Work Phone: VZ-Mpulyymrwdvpik[facility] 410 Work Phone: 01-05-2022 14:08-0400 Respiratory rate 16 /min John Saul MD Work Phone: [facility] 01-05-2022 09:00-0400 Diastolic blood pressure 80 mm[Hg] John Saul MD Work Phone: [facility] 01-05-2022 09:00-0400 Heart rate 63 /min John Saul MD Work Phone: [facility] 01-05-2022 09:00-0400 Systolic blood pressure 143 mm[Hg] John Saul MD Work Phone: [facility] 01-05-2022 07:45-0400 Body temperature 97.9 [degF] John Saul MD Work Phone: [facility] 01-05-2022 07:45-0400 SaO2% (BldA) [Mass fraction] 98 % John Saul MD Work Phone: [facility] 01-03-2022 06:00-0400 Body mass index (BMI) [Ratio] 29.47 kg/m2 John Saul MD Work Phone: [facility] 01-03-2022 06:00-0400 Body weight 115.67 kg John Saul MD Work Phone: [facility] [employer] 12-31-2021 23:43-0400 Body height 198.1 cm John Saul MD [facility] 10-02-2021 16:00-0400 Body height Thor Fox Other [employer] Other 10-02-2021 16:00-0400 Body mass index (BMI) [Ratio] 30.71 kg/m2 Thor Corbettky Other [employer] Other 10-02-2021 16:00-0400 Body weight 117.48 kg Thorshu Fox Other [employer] Other 10-02-2021 16:00-0400 Diastolic blood pressure 72 mm[Hg] Thor Corbettky Other [employer] Other 10-02-2021 16:00-0400 SaO2% (BldA) [Mass fraction] 97 % Thor Corbettky Other [employer] Other 10-02-2021 16:00-0400 Systolic blood pressure 118 mm[Hg] Thorshu Fox Other [employer] Other 08-30-2021 10:15-0400 Body height Lashawn Estrada Other [employer] Other 08-30-2021 10:15-0400 Body mass index (BMI) [Ratio] 30.76 kg/m2 Lashawn Estrada Other [employer] Other 08-30-2021 10:15-0400 Body weight 117.66 kg Lashawn Estrada Other [employer] Other 08-30-2021 10:15-0400 Diastolic blood pressure 64 mm[Hg] Lashawn Estrada Other [employer] Other 08-30-2021 10:15-0400 Respiratory rate 18 /min Lashawn Estrada Other [employer] Other 08-30-2021 10:15-0400 SaO2% (BldA) [Mass fraction] 96 % Lashawn Estrada Other [employer] Other 08-30-2021 10:15-0400 Systolic blood pressure 116 mm[Hg] Lashawn Estrada Other [employer] Other 08-03-2021 16:45-0400 Body height Thor Fox Other [employer] Other 08-03-2021 16:45-0400 Body mass index (BMI) [Ratio] 30.73 kg/m2 Thor Fox Other [employer] Other 08-03-2021 16:45-0400 Body weight 117.57 kg Thor Fox Other [employer] Other 08-03-2021 16:45-0400 Diastolic blood pressure 80 mm[Hg] Thor Fox Other [employer] Other 08-03-2021 16:45-0400 SaO2% (BldA) [Mass fraction] 98 % Thor Fox Other [employer] Other 08-03-2021 16:45-0400 Systolic blood pressure 122 mm[Hg] Thor Fox Other [facility] [facility] Other 03-11-2020 13:30-0500 Body Temperature 98.1 [degF] [address] [facility] [place] [place] 03-11-2020 13:30-0500 BP Diastolic 75 mm[Hg] [address] [employer]- [place] , [place] 03-11-2020 13:30-0500 BP Systolic 126 mm[Hg] [address] [employer] [place] , [place] 03-11-2020 13:30-0500 Pulse (Heart Rate) 69 /min [address] [employer] [place] 03-11-2020 13:30-0500 Respiratory Rate 18 /min [address] [facility] [place] [place] 03-11-2020 09:45-0500 Pulse Oximetry 99 % [address] [place] 03-03-2019 13:16-0500 BMI (Body Mass Index) 28 kg/m2 Chris Luong MPHK-Hfbdgawhk-Jmtehyj ld 201 Work Phone: 03-03-2019 13:16-0500 Body weight 109.88 kg Chris Luong [facility] [address] Work Phone: 03-03-2019 13:16-0500 BP Diastolic 80 mm[Hg] Chris Luong [facility] [address] Work Phone: Comment on above: Location: LUE; Position: Sitting 03-03-2019 13:16-0500 BP Systolic 118 mm[Hg] Chris Luong [facility] [address] Work Phone: Comment on above: Location: LUE; Position: Sitting 03-03-2019 13:16-0500 BSA (Body Surface Area) 2.45 m2 Chris Luong MPWE-Libwfrads-Zhykprq ld 201 Work Phone: 03-03-2019 13:16-0500 Height 198.12 cm Chris Luong [facility] [address] Work Phone: 03-03-2019 13:16-0500 Pulse (Heart Rate) 81 /min Chris Luong [facility] Renae [facility] 201 Work Phone: 03-03-2019 13:16-0500 Pulse Oximetry 96 % Chris Luong HO-Mxcuynmhh-Dro ffie ld 201 Work Phone: Comment on above: Source: RA Encounters Encounter Date Encounter Type Care Provider Facility Start: 05-03-2023 End: 05-03-2023 ambulatory MAYELIN Nguyen BEJ Not Available Start: 05-02-2023 End: 05-02-2023 ambulatory MARTÍN KIRANI Not Available Start: 04-26-2023 End: 04-26-2023 ambulatory Imad Asaad Other [facility] Other Start: 04-26-2023 Telephone encounter Imad Asaad [facility] Start: 04-24-2023 End: 04-24-2023 ambulatory Imad Asaad Other [facility] Other Start: 04-24-2023 Telephone encounter Imad Asaad [facility] Start: 04-23-2023 End: 04-24-2023 ambulatory MATIAS Amita LARRY Not Available Start: 04-16-2023 End: 04-16-2023 ambulatory Radha Burris Facility:[facility] Start: 04-16-2023 End: 04-16-2023 Admission to same day surgery center MD Radha Burris Work Phone: [facility] Work Phone: Start: 04-16-2023 End: 04-16-2023 ambulatory MD Radha Burris Work Phone: [facility] Work Phone: Start: 04-09-2023 End: 04-09-2023 ambulatory Imad Asaad Other [employer] Other Start: 04-09-2023 Telephone encounter Imad Asaad [facility] Start: 04-03-2023 End: 04-03-[address] [facility] Start: 04-01-2023 End: 04-01-2023 ambulatory Imad Asaad Other [facility] Other Start: 04-01-2023 Telephone encounter Imad Asaad [facility] Start: 03-20-2023 End: 03-20-2023 ambulatory Imad Asaad Other [facility] Other Start: 03-20-2023 Office outpatient ne w 45 minutes Imad Asaad [facility] Start: 03-05-2023 End: 03-05-2023 Emergency department patient visit JAYLYN BENDER [facility] Start: 03-05-2023 ambulatory JACKIE BANKS [facility] Start: 02-25-2023 End: 02-25-2023 ambulatory RADHA BURRIS Facility:[facility] Start: 02-25-2023 End: 02-25-2023 ambulatory Skin Biopsy Work Phone: Neurology Start: 02-25-2023 End: 02-25-2023 Patient encounter procedure Skin Biopsy Work Phone: [facility] Start: 02-05-2023 Telephone encounter María Zhao on TREATING PLANT OPERATOR.ADMINISTRATIVE DIRECTOR Work Phone: Neurology Comment on above: Results (Gerri teran ) Start: 02-01-2023 End: 02-02-2023 ambulatory RADHA BURRIS [facility] Start: 02-01-2023 End: 02-01-2023 Subsequent hospital visit by physician Winifred Baker 2 [facility] Comment on above: Left lower quadrant abdominal pain Start: 01-31-2023 End: 02-01-2023 ambulatory [facility] Start: 01-31-2023 End: 01-31-2023 Office outpatient visit 25 minutes Yossi Chen MD Work Phone: [facility] Comment on above: Diarrhea, unspecifie d type (Primary Dx); Left lower quadrant abdominal pain Start: 01-28-2023 ambulatory María Pearl TREATING PLANT OPERATOR.ADMINISTRATIVE DIRECTOR Work Phone: Neurology Comment on above: Tilt Start: 01-28-2023 E-mail encounter fro m caregiver María Maria R TREATING PLANT OPERATOR.ADMINISTRATIVE DIRECTOR Work Phone: [facility] Start: 01-28-2023 Telephone encounter María Zhao on TREATING PLANT OPERATOR.ADMINISTRATIVE DIRECTOR Work Phone: Neurology Comment on above: Results ([facility] ) Start: 01-26-2023 ambulatory María Maria R TREATING PLANT OPERATOR.ADMINISTRATIVE DIRECTOR Work Phone: Neurology Comment on above: Test results Start: 01-24-2023 End: 01-24-2023 ambulatory RADHA BURRIS Facility:[facility] Start: 01-23-2023 End: 01-23-2023 ambulatory RADHA BURRIS Facility:[facility] Start: 01-21-2023 End: 01-21-2023 ambulatory [facility] Start: 12-31-2022 End: 12-31-2022 ambulatory RADHA BURRIS Facility:[facility] Start: 12-31-2022 End: 12-31-2022 Patient encounter procedure Sarbjit Richardson TREATING PLANT OPERATOR.ADMINISTRATIVE DIRECTOR Work Phone: Neurology Comment on above: Autonomic dysfunctio n (Primary Dx); Dizzy spells Start: 12-28-2022 End: 12-28-2022 ambulatory [facility] Start: 12-13-2022 Postop follow up vis it related to original px Radha Burris Work Phone: [facility] DO Work Phone: Start: 12-13-[address] Yossi Chen Facil ity:[id number] Start: 12-10-2022 Chart Update Radha xavier Work Phone: [facility] DO Work Phone: Start: 11-29-2022 Postop follow up vis it related to original px Radha Burris Work Phone: [facility] DO Work Phone: Start: 11-29-[address] Yossi Chen Facil ity:[id number] Start: 11-22-2022 End: 11-22-2022 Evaluation and management of inpatient Dr. Yossi Chen Facility:[id number] Start: 11-16-2022 Telephone encounter Sarbjit Puentes APRN.ADMINISTRATIVE DIRECTOR Work Phone: Neurology Comment on above: Received Outside Med ical Records () Start: 11-12-[address] Yossi Chen Facil ity:[id number] Start: 10-29-2022 AUDIT Radha Liliya Collinsjordi xavier Work Phone: OP-Kdasxerqsihsbp-Prdekr n Work Phone: Start: 10-26-[address] Arabella Butt Facility:[id number] Start: 10-19-2022 End: 10-19-2022 ambulatory Sarbjit Richardson APRN.ADMINISTRATIVE DIRECTOR Work Phone: Neurology Comment on above: Reaction Start: 10-18-2022 End: 10-18-2022 ambulatory Infusion Main Chair 3 Work Phone: Neurology Comment on above: Chronic migraine wit hout aura, with intractable migraine, so stated, with status migrainosus (Primary Dx) Start: 10-15-2022 End: 10-15-[address] Arabella Butt Facility:[id number] Start: 10-15-2022 End: 10-15-2022 Subsequent hospital visit by physician Arabella Butt MD Work Phone: [facility] Comment on above: Obstructive sleep ap lyn (adult) (pediatric); Sleep apnea, unspecified; Dysphagia, unspecified; Diaphragmatic hernia without obstruction or gangrene; Gastro-esophageal reflux disease without esophagitis; Chronic atrial fibrillation, unspecified (CMS/HCC); Hypertensive chronic kidney disease with stage 1 through stage 4 chronic kidney disease, or unspecified chronic kidney disease; Chronic kidney disease, stage 3 unspecified (CMS/HCC); Paralysis of vocal cords and larynx, bilateral; 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, unspecified; Arthrodesis status; Personal history of transient ischemic attack (TIA), and cerebral infarction without residual deficits; Presence of artificial knee joint, bilateral; Personal history of nicotine dependence; care home (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 of aspirin; Allergy status to penicillin; Allergy status to other antibiotic agents Start: 10-10-[address] Arabella Butt Facility:[facility] Start: 10-10-2022 Encounter for preprocedural cardiovascular examination Dr. Arabella Butt [facility] Start: 10-09-2022 AUDIT Radha xavier Work Phone: [facility] Work Phone: Start: 10-08-2022 Rx Renewal Radha xavier Work Phone: TR[facility]mmvyviixvktuf[facility] 4100 Work Phone: Start: 09-25-2022 Office outpatient vi sit 25 minutes Radha Burris Work Phone: RY-Dinqjipzexsmdv-Sjzctk n Work Phone: Start: 09-25-2022 [facility], Provider : Ruby Daily, Status: Pen, Time: 2:30 PM Radha Burris Work Phone: [facility] 8964 Work Phone: Start: 09-25-[address] Ruby Daily Facility:[facility] Start: 09-24-2022 Office outpatient vi sit 10 minutes Radha Burris Work Phone: [facility] 1861 Work Phone: Start: 09-24-[address] Ranjana Perrin Facility:[id number] Start: 09-13-2022 End: 09-13-[address] Ruby Daily Facility:[facility] Start: 09-11-2022 End: 09-12-2022 [facility] Start: 09-11-2022 ambulatory [facility] Start: 09-04-2022 Office outpatient vi sit 40 minutes Radha Burris Work Phone: CD-Yowihetxwjalao-Hhyutc n Work Phone: Start: 09-04-[address] Ruby Daily Facility:[facility] Start: 08-30-2022 End: 08-30-[address] Ruby Daily Facility:[facility] Start: 08-30-2022 End: 08-30-2022 Subsequent hospital visit by physician Beth Diego MD Work Phone: [facility] Comment on above: Dysphagia, oropharyn geal phase; Dysphagia, unspecified; Diaphragmatic hernia without obstruction or gangrene; Other diseases of stomach and duodenum; Polyp of stomach and duodenum; Gastro-esophageal reflux disease without esophagitis; Hypertensive chronic kidney disease with stage 1 through stage 4 chronic kidney disease, or unspecified chronic kidney disease; Chronic kidney disease, stage 3 unspecified (CMS/HCC); Chronic atrial fibrillation, unspecified (CMS/HCC); Obstructive sleep apnea (adult) (pediatric); 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, unspecified; 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 Radha Burris Facility:[facility] Start: 08-17-2022 Current tobacco non-user cad cap copd pv dm Radha Burris Work Phone: PA-Dpnjaxdrwcffzp-Azztb MAC1 302 Work Phone: Start: 08-17-[address] Arabella Butt Facility:[id number] Start: 08-13-[address] Radha Burris Facility:[id number] Start: 08-13-2022 Patient encounter procedure Radha Burris Work Phone[facility] [address] [place] Work Phone: Start: 08-10-[address] Ruby Daily Facility:[id number] Start: 07-31-2022 Office outpatient vi sit 40 minutes Radha Burris Work Phone: XT-Pdjmjshqjalyal-Jotusd n Work Phone: Start: 07-31-2022 Patient encounter procedure Radha Burris Work Phone: UI-Upyupsgkesexug-Xixgpc n Work Phone: Start: 07-31-2022 JAYLON, Provider : Ruby Daily, Status: Pen, Time: 12:30 PM Radha Burris Work Phone: [facility] [address] [place] Work Phone: Start: 07-31-[address] Ruby Daily Facility:[id number] Start: 07-30-[address] Radha Burris Facility:[id number] Start: 07-30-2022 Patient encounter procedure Radha Burris Work Phone: [facility] [address] [place] Work Phone: Start: 07-29-2022 ambulatory Sarbjit gregg APRN.ADMINISTRATIVE DIRECTOR Work Phone: Neurology Comment on above: After effects Start: 07-26-2022 End: 07-26-2022 ambulatory Infusion Main Chair 3 Work Phone: Neurology Comment on above: Chronic migraine wit hout aura, with intractable migraine, so stated, with status migrainosus (Primary Dx) Start: 07-21-2022 ambulatory Sarbjit gregg APRN.ADMINISTRATIVE DIRECTOR Work Phone: Neurology Comment on above: What's next? Start: 07-20-2022 ambulatory JACKIE BANKS [facility] Start: 07-18-[address] Ranjana Perrin Facility:[id number] Start: 07-17-2022 Office outpatient vi sit 25 minutes Radha Burris Work Phone: IR-Ilgeomqiczxcnb-Ljwdqf n Voice Work Phone: Start: 07-17-2022 Patient encounter procedure Radha Burris Work Phone: JK[facility]enhxwzoltsevz[facility] [address] Work Phone: Start: 07-17-[address] Ranjana Perrin Facility:[id number] Start: 07-11-2022 ambulatory Sarbjit gregg APRN.ADMINISTRATIVE DIRECTOR Work Phone: Neurology Comment on above: Test results Start: 07-09-2022 End: [facility] Start: 06-04-[facility]22 End: 06-05-[address] AISHWARYA SWAIN Facility:H1 Start: 05-31-2022 End: 05-31-2022 ambulatory Sarbjit Richardson APRN.ADMINISTRATIVE DIRECTOR Work Phone: Neurology Comment on above: Today's visit Start: 05-31-2022 E-mail encounter fro m caregiver Sarbjit Richardson APRN.ADMINISTRATIVE DIRECTOR Work Phone: [facility] Start: 05-31-2022 End: 05-31-2022 Patient encounter procedure Sarbjit Richardson APRN.ADMINISTRATIVE DIRECTOR Work Phone: Neurology Comment on above: Chronic migraine wit hout aura, intractable, without status migrainosus (Primary Dx); Aphasia; Other specified transient cerebral ischemias Start: 05-29-2022 Letter encounter Radha cantu MD Work Phone: [facility] Start: 05-23-2022 End: 05-23-2022 Emergency department patient visit MUNA DICKERSON [facility] Start: 05-23-2022 End: 05-23-[address] [facility] Start: 05-23-2022 End: 05-23-2022 ambulatory [facility] Start: 05-01-2022 End: 05-01-2022 ambulatory [facility] Start: 03-22-2022 End: 03-23-2022 ambulatory YANDEL SALAZARCKER Facility:H1 Start: 02-05-2022 End: 02-06-[address] MONO CHRISTIE Facility:H1 Start: 01-09-2022 End: 01-09-[address] DEVANTE SINGH Facility:H1 Start: 01-01-2022 End: 01-05-2022 Evaluation and management of inpatient [facility] Start: 12-31-2021 End: 01-05-2022 Evaluation and management of inpatient John Saul MD Work Phone: [facility] Renal//Med Surg Comment on above: Acute pancreatitis, unspecified complication status, unspecified pancreatitis type (Primary Dx); Gall stone pancreatitis; EMELIA (acute kidney injury) ([facility]) Start: 12-31-2021 End: 01-01-[address] RADHA BURRIS Facility:H1 Start: 12-30-2021 End: 12-31-[address] MAYELIN RODRIGUEZ Facility:H1 Start: 12-29-2021 End: 12-29-[address] VERONICA YOUNG Facility:H1 Start: 12-12-2021 End: 12-13-2021 Evaluation and management of inpatient RADHA BURRIS Facility:[facility] Start: 12-08-2021 End: 12-09-2021 ambulatory YANDEL VITALIY Facility:H1 Start: 11-23-2021 Encounter for preprocedural laboratory examination DR MONO CHRISTIE [facility] Start: 11-21-2021 End: 11-22-2021 ambulatory RADHA BURRIS Facility:[facility] Start: 11-17-2021 End: 11-18-[address] MONO CHRISTIE Facility: Start: 11-17-2021 End: 11-18-2021 Encounter for preprocedural laboratory examination DR MONO CHRISTIE Facility:H1 Start: 11-16-2021 End: 11-16-[address] RADHA BURRIS Facility:H1 Start: 11-09-2021 End: 11-10-2021 ambulatory RADHA BURRIS Facility:[facility] Start: 10-03-2021 End: 10-03-[address] Donnell Du Facility: Start: 10-03-2021 End: 10-04-2021 ambulatory YANDEL SHEN Facility:H1 Start: 10-02-2021 End: 10-02-2021 ambulatory Thor Fox Other [facility] Other Start: 10-02-2021 Office outpatient vi sit 15 minutes Thor Fox [facility] Start: 09-27-2021 End: 09-28-2021 ambulatory YANDEL VITALIY Facility:H1 Start: 08-30-2021 End: 08-30-2021 ambulatory Lashawn Estrada Other [facility] Other Start: 08-30-2021 Office outpatient vi sit 15 minutes Lashawn Estrada [facility] Start: 08-15-2021 (Procedure) Short Thor Fox [facility] Start: 08-15-2021 End: 08-15-2021 ambulatory Thor Fox Other [facility] Other Start: 08-03-2021 End: 08-03-2021 ambulatory Thor Fxo Other [facility] Other Start: 08-03-2021 Office outpatient vi sit 25 minutes Thor Fox [facility] Start: 07-27-2021 (Procedure) Short Thor Fox [facility] Start: 07-27-2021 End: 07-27-2021 ambulatory Thor Fox Other [facility] Other Start: 07-18-2021 (Procedure) Short Thor Fox [facility] Start: 07-18-2021 End: 07-18-2021 ambulatory Thor Fox Other [facility] Other Start: 03-11-2020 End: 03-12-2020 Patient encounter procedure RADHA Ashish [facility] Start: 03-11-2020 End: 03-11-2020 Subsequent hospital visit by physician Rupinder Infusion Bed 3 RUPINDER OP INFUSION Comment on above: Arrived Start: 02-10-2020 End: 02-10-2020 ambulatory UNKNOWN PROVIDER Facility:[facility] Start: 10-20-2019 Patient encounter procedure Terrell Her WG-Aqdgukaxrelkfk-[facility] 4100 Work Phone: Start: 09-29-2019 Patient encounter procedure Terrell Arden YP-Ypaountxcedjqr-MaisphRed [facility] 4100 Work Phone: Start: 09-28-2019 Patient encounter procedure Terrell Her MF-Ngjwvzbfwyywhi-[facility] 4100 Work Phone: Start: 09-21-2019 Patient encounter procedure Terrell Her TS-Vzmhixuiykhieo-RuybeiRed [facility] 4100 Work Phone: Start: 09-17-2019 Patient encounter procedure Terrell Her [facility] 6477 Work Phone: Start: 09-10-2019 Patient encounter procedure [facility] Work Phone: Start: 06-29-2019 Patient encounter procedure Terrell Arden [facility] 331 Work Phone: Start: 03-03-2019 Patient encounter procedure Terrell Her [facility] 5749 Work Phone: Start: 04-28-2018 Patient encounter procedure CLAIR MATT Facility:[id number] Procedures Date Procedure Procedure Detail Performing Clinician Start: 04-16-2023 Colonoscopy MD Radha Burris Work Phone: Start: 02-01-2023 CT ABDOMEN PELVIS W IV CONTRAST YOSSI CHEN Start: 02-01-2023 STOOL PATHOGEN PANEL, PCR RADHA Corral Start: 02-01-2023 Ct abdomen & pelvis w/contrast material Yossi Chen MD Work Phone: Start: 01-31-2023 Basic metabolic 2000 panel - Serum or Plasma RADHA BURRIS Start: 08-30-2022 SURGICAL PATHOLOGY RESULTS Beth zhang MD Work Phone: Start: 08-30-2022 Esophagoscopy flexible transoral diagnostic Radha Burris MD Work Phone: Start: 01-05-2022 Basic metabolic panel calcium total Dariela Walker MD Work Phone: Start: 01-04-2022 Blood count complete auto&auto difrntl wbc Dariela Walker MD Work Phone: Start: 01-04-2022 BASIC METABOLIC PANEL W/ REFLEX TO MG FOR LOW K Elio Campos MD Work Phone: Start: 01-03-2022 LACTATE, SEPSIS Shane Villalpando DO Work Phone: Start: 01-03-2022 Assay of urine sodium Elio Campos MD Work Phone: Start: 01-03-2022 EOSINOPHILS, URINE Elio Campos MD Work Phone: Start: 01-03-2022 Urinalysis microscopic only Elio uribe MD Work Phone: Start: 01-03-2022 Urnls dip stick/tablet rgnt auto w/o microscopy Elio Campos MD Work Phone: Start: 01-03-2022 Assay of nephelometry each analyte desire Elio Campos MD Work Phone: Start: 01-03-2022 Complement antigen each component Elio Campos MD Work Phone: Start: 01-03-2022 IMMUNOFIXATION SERUM PROFILE Elio parker MD Work Phone: Start: 01-03-2022 LACTATE, SEPSIS Shane T Villalpando DO Work Phone: Start: 01-03-2022 Assay of lipase Shane Villalpando DO Work Phone: Start: 01-03-2022 BASIC METABOLIC PANEL W/ REFLEX TO MG FOR LOW K Shane T Villalpando DO Work Phone: Start: 01-03-2022 Hepatic function panel Shane Villalpando DO Work Phone: Start: 01-03-2022 LACTATE, SEPSIS Shane T Villalpando DO Work Phone: Start: 01-02-2022 LACTATE, SEPSIS Shane T Villalpando DO Work Phone: Start: 01-02-2022 BASIC METABOLIC PANEL W/ REFLEX TO MG FOR LOW K Elio Campos MD Work Phone: Start: 01-02-2022 LACTATE, SEPSIS Shane T Villalpando DO Work Phone: Start: 01-02-2022 SURGICAL PATHOLOGY REPORT Leonel Matos MD Work Phone: Start: 01-02-2022 End: 01-02-2022 Laps surg cholecystectomy w/cholangiography Leonel Matos MD Work Phone: Start: 01-02-2022 Us retroperitoneal real time w/image limited Dariela Walker MD Work Phone: Start: 01-02-2022 Assay of lipase Shane Villalpando DO Work Phone: Start: 01-02-2022 BASIC METABOLIC PANEL W/ REFLEX TO MG FOR LOW K Shane Louie Villalpando DO Work Phone: Start: 01-02-2022 Hepatic function panel Shane Portillois DO Work Phone: Start: 01-02-2022 LACTATE, SEPSIS Shane Louie Villalpando DO Work Phone: Start: 01-01-2022 LACTATE, SEPSIS Shane T Villalpando DO Work Phone: Start: 01-01-2022 LACTATE, SEPSIS Shane Louie Villalpando DO Work Phone: Start: 01-01-2022 Assay of troponin quantitative Nohelia Morris TREATING PLANT OPERATOR - ADMINISTRATIVE DIRECTOR Work Phone: Start: 01-01-2022 LACTATE, SEPSIS Shane Portillois DO Work Phone: Start: 01-01-2022 Mri abdomen w/o contrast material Jewel Amita Ford TREATING PLANT OPERATOR - ADMINISTRATIVE DIRECTOR Work Phone: Start: 01-01-2022 Assay of troponin quantitative Nohelia Morris TREATING PLANT OPERATOR - ADMINISTRATIVE DIRECTOR Work Phone: Start: 01-01-2022 Blood count complete automated John dodd MD Work Phone: Start: 01-01-2022 DIFFERENTIAL John Saul MD Work Phone: Start: 01-01-2022 Hemoglobin glycosylated a1c John sandoval MD Work Phone: Start: 01-01-2022 LACTATE, SEPSIS John Saul MD Work Phone: Start: 01-01-2022 Culture bacterial quanttative colony count urine John Saul MD Work Phone: Start: 01-01-2022 Protein total xcpt refractometry urine Darline Walden MD Work Phone: Start: 01-01-2022 Urnls dip stick/tablet rgnt auto w/o microscopy Darline Walden MD Work Phone: Start: 01-01-2022 Basic metabolic panel calcium total Darline Walden MD Work Phone: Start: 01-01-2022 Lipid panel Darline Walden MD Work Phone: Start: 01-01-2022 Assay of troponin quantitative Nohelia Morris TREATING PLANT OPERATOR - ADMINISTRATIVE DIRECTOR Work Phone: Start: 01-01-2022 Assay of troponin quantitative Nohelia Morris TREATING PLANT OPERATOR - ADMINISTRATIVE DIRECTOR Work Phone: Start: 01-01-2022 LACTATE, SEPSIS Shane Villalpando DO Work Phone: Start: 01-01-2022 Culture bacterial blood aerobic w/id isolates Nohelia Morris TREATING PLANT OPERATOR - ADMINISTRATIVE DIRECTOR Work Phone: Start: 01-01-2022 CULTURE, BLOOD 1 Nohelia Morris TREATING PLANT OPERATOR - ADMINISTRATIVE DIRECTOR Work Phone: Start: 12-12-2021 Antibody screen RADHA BURRIS Comment on above: Performed By: #### [id number] #### [address] Start: 09-17-2019 GI Mod Barium Swallow with Speech Jesus Her Start: 03-03-2019 MRI Brain without Contrast Chris Luong Adenoid excision Chris Trinidad kh Appendectomy Chris Luong Atrial appendage dane sure device insertion Radha Burris Work Phone: Catheter ablation of arrhythmogenic focus Radha Burris Work Phone: Cervical arthrodesis Chris Luong Colonoscopy Radha cantu Work Phone: Esophageal hiatus hernia repair Radha Burris Work Phone: Esophagogastroduodenoscopy J luis miguel Burris Work Phone: History of operative procedure on knee Thor Fox Other History of thyroidectomy She felton Fox Other History of thyroidectomy Status post total thyroidectomy MD Radha Burris Work Phone: Implantation of inse rtable loop recorder Radha Burris Work Phone: Laminectomy Radha cantu Work Phone: Laparoscopic cholecystectomy Radha Burris Work Phone: Operative procedure on knee Chris Luong Operative procedure on uterus AND/OR cervix Radha Burris Work Phone: Tonsillectomy Radha xavier Work Phone: Total thyroidectomy Radha Burris Work Phone: Plan of Treatment Date Care Activity Detail Author Start: 01-01-2027 Lipid panel Lipids [facility] Start: 01-31-2026 [facility] Start: 11-21-2025 DIABETES SCREEN DIABETES SCREEN [facility] Start: 11-21-2025 [facility] Start: 03-10-2024 DIABETES SCREEN DIABETES SCREEN [facility] Start: 02-01-2024 Serum Creatinine Serum Creatinine [facility] Start: 01-24-2024 BP Controlled (<130/80) BP Controlled (<130/80) [facility] Start: 01-01-2024 BP CONTROLLED (<130/80) BP CONTROLLED (<130/80) [facility] Start: 11-22-2023 SERUM CREATININE SERUM CREATININE [facility] Start: 05-31-2023 BP CONTROLLED (<130/80) BP CONTROLLED (<130/80) [facility] Start: 04-16-2023 [facility] Start: 02-01-2023 End: 02-01-2023 Patient encounter procedure 02/01/2023 1:45 PM EDT Appointment [address] [id number] [facility] Start: 01-31-2023 End: 02-07-2023 Bacteria identified in Stool by Culture Stool Culture, Test of Cure Microbiology Routine Diarrhea, unspecified type Expected: 01/31/2023 (Approximate), Expires: 02/07/2023 [facility] Work Phone: Comment on above: Expected: 01/31/2023 (Approximate), Expires: 02/07/2023 Start: 01-31-2023 End: 02-01-2024 Basic metabolic 2000 panel - Serum or Plasma [facility] Work Phone: Comment on above: Expected: 01/31/2023 (Approximate), Expires: 02/01/2024 Start: 01-31-2023 End: 02-01-2024 CT Abdomen and Pelvis W contrast IV CT abdomen pelvis w IV contrast Imaging STAT Left lower quadrant abdominal pain Expected: 01/31/2023, Expires: 02/01/2024 [facility] Service Area Work Phone: Comment on above: Expected: 01/31/2023 , Expires: 02/01/2024 Start: 01-31-2023 End: 02-07-2023 Stool Pathogen Panel, PCR Stool Pathogen Panel, PCR Microbiology Routine Diarrhea, unspecified type Expected: 01/31/2023 (Approximate), Expires: 02/07/2023 [facility] Work Phone: Comment on above: Expected: 01/31/2023 (Approximate), Expires: 02/07/2023 Start: 01-27-2023 DTaP/Tdap/Td vaccine (2 - Td or Tdap) DTaP/Tdap/Td vaccine (2 - Td or Tdap) [facility] Start: 01-27-2023 DTaP/Tdap/Td Vaccine s (2 - Td or Tdap) DTaP/Tdap/Td Vaccines (2 - Td or Tdap) [facility] Start: 01-27-2023 Tetanus vaccination Tetanus (T d or Tdap) [facility] Start: 01-27-2023 Urine microalbumin profile [facility] Start: 01-01-2023 Diabetes mellitus screening Diabetes Screening [facility] Start: 01-01-2023 Hemoglobin A1c measurement A1C test (Diabetic or Prediabetic) [facility] Start: 01-01-2023 HEMOGLOBIN/HEMATOCRIT HEMOGLOBIN/HEM ATOCRIT [facility] Start: 12-21-2022 Covid-19 Vaccine ( season) Covid-19 Vaccine ( season) [facility] Start: 12-21-2022 Influenza vaccination C [facility] Start: 12-13-2022 FUV, Provider: Yossi Chen, Status: Pen, Time: 10:45 AM FUV, Provider: Yossi Chen, Status: Pen, Time: 10:45 AM [facility] 201 DO Work Phone: Start: 11-12-2022 NPV, Provider: Yossi Chen, Status: Pen, Time: 2:45 PM NPV, Provider: Yossi Chen, Status: Pen, Time: 2:45 PM [facility] Work Phone: Start: 10-26-2022 VIRFUVJOSHUA, Provider : Arabella Terry, Status: Pen, Time: 3:00 PM VIRFUVRODRIGOE, Provider: Arabella Terry, Status: Pen, Time: 3:00 PM PM-Flkxwbvzrdudst-Rp rma MAC1 302 Work Phone: Start: 10-15-2022 [facility], Provider: Arabella Terry, Status: Pen, Time: 8:00 AM [facility], Provider: Arabella Terry, Status: Pen, Time: 8:00 AM YJ-Mcyhjeonkjnkio-Mg debbyman Work Phone: Start: 09-24-2022 VIRFUVJOSHUA, Provider : Ranjana Perrin, Status: Pen, Time: 8:30 AM VIRFUVHOME, Provider: Ranjana Perrin, Status: Pen, Time: 8:30 AM JY-Mrspqgrgzzukvi-Ie [facility] 4100 Work Phone: Start: 09-04-2022 VIRFUVRODRIGOE, Provider : Ruby Daily, Status: Pen, Time: 11:30 AM VIRFUVHOME, Provider: Ruby Daily, Status: Pen, Time: 11:[address] [facility] [address] [place] Work Phone: Start: 08-30-2022 EMOT, Provider: EUGENIE ER PROCEDURE ROOM 10,MG GASTRO, Status: Pen, Time: 8:00 AM EMOT, Provider: ELIAN PROCEDURE ROOM 10,MG GASTRO, Status: Pen, Time: 8:00 AM LD-Bjzkhlugtyncml-Fa idman Work Phone: Start: 08-30-2022 EGDANS, Provider: Beth Diego, Status: Pen, Time: 7:30 AM EGDANS, Provider: Beth Diego, Status: Pen, Time: 7:30 AM YR-Eokbcsriefxckt-So idman Work Phone: Start: 08-17-2022 NPV, Provider: Arabella Alarcon, Status: Pen, Time: 10:40 AM NPV, Provider: Arabella Terry, Status: Pen, Time: 10:40 [address] [address] [place] Work Phone: Start: 08-13-2022 VIRFUVRODRIGOE, Provider : Yoanna Quigley, Status: Pen, Time: 3:15 PM VIRFUVHOME, Provider: Yoanna Quigley, Status: Pen, Time: 3:15 PM [facility] [address] [place] Work Phone: Start: 07-31-2022 VIRFUVRODRIGOE, Provider : Ruby Daily, Status: Pen, Time: 12:30 PM VIRFUVHOME, Provider: Ruby Daily, Status: Pen, Time: 12:30 PM XH-Rehluckqzislma-St idman Voice Work Phone: Start: 05-31-2022 End: 07-31-2022 Comprehensive metabolic 2000 panel - Serum or Plasma COMP METABOLIC PANEL Lab Routine Chronic migraine without aura, intractable, without status migrainosus Expected: 05/31/2022, Expires: 07/31/2022 [facility] Work Phone: Comment on above: Expected: 05/31/2022 , Expires: 07/31/2022 Start: 04-22-2022 ADVANCE DIRECTIVE DISCUSSION ADVANCE DIRECTIVE DISCUSSION [facility] Start: 04-22-2022 DEPRESSION ASSESSMENT DEPRESSION ASS ESSMENT [facility] Start: 03-10-2022 SERUM CREATININE SERUM CREATININE Cl [facility] Start: 01-20-2022 Influenza vaccination Influenza Vacc ine (#1) [facility] Start: 01-05-2022 End: 01-05-2023 Basic metabolic 2000 panel - Serum or Plasma Basic Metabolic Panel Lab Routine EMELIA (acute kidney injury) (HCC) Expected: 01/05/2022, Expires: 01/05/2023 [facility] Work Phone: Comment on above: Expected: 01/05/2022 , Expires: 01/05/2023 Start: 01-05-2022 End: 01-05-2023 CBC W Auto Differential panel - Blood CBC with Auto Differential Lab Routine Acute pancreatitis, unspecified complication status, unspecified pancreatitis type Expected: 01/05/2022, Expires: 01/05/2023 [facility] Work Phone: Comment on above: Expected: 01/05/2022 , Expires: 01/05/2023 Start: 12-21-2021 Influenza vaccination B ON [facility] Start: 06-05-2021 COVID-19 Vaccine (4 - Booster for Moderna series) COVID-19 Vaccine (4 - Booster for Moderna series) [facility] Start: 06-05-2021 COVID-19 VACCINE (4 - Moderna series) COVID-19 VACCINE (4 - Moderna series) [facility] Start: 01-14-2021 Basic metabolic 2000 panel - Serum or Plasma Basic Metabolic Panel [facility] Start: 01-05-2021 Thyroid stimulating hormone measurement TSH [facility] Start: 12-15-2020 COVID-19 Vaccine (3 - Booster for Moderna series) COVID-19 Vaccine (3 - Booster for Moderna series) [facility] Start: 02-21-2020 Annual wellness visit Annual W ellness Visit ([id number]) [facility] Start: 12-22-2019 Influenza vaccination Flu vaccine (# 1) [place], [place] Start: 03-03-2019 MRI Brain with out Contrast DG-Ynuvetsys-Xjmihqm ld 201 Work Phone: Start: 2018 Abdominal Aortic Aneurysm Screening (Age 65+) Abdominal Aortic Aneurysm Screening (Age 65+) [facility] Start: 2018 Pneumococcal 65+ yea rs Vaccine (1 - PCV) Pneumococcal 65+ years Vaccine (1 - PCV) [facility] Start: 2018 Pneumococcal 65+ yea rs Vaccine (1 of 1 - PPSV23) Pneumococcal 65+ years Vaccine (1 of 1 - PPSV23) [place], [place] Start: 2018 Pneumococcal vaccination Pneumococcal Vaccine(s) (65+ yrs) (1 - PCV) [facility] Start: 2018 Pneumococcal Vaccine : 65+ (1 - PCV) Pneumococcal Vaccine: 65+ (1 - PCV) [facility] Start: 2018 Pneumococcal Vaccine : 65+ Years (1 - PCV) Pneumococcal Vaccine: 65+ Years (1 - PCV) [facility] Start: 2018 PNEUMOCOCCAL: 65+ (1 - PCV) PNEUMOCOCCAL: 65+ (1 - PCV) [facility] Start: 2013 RSV Vaccine (1 - 1-dose 60+ series) RSV Vaccine (1 - 1-dose 60+ series) [facility] Start: 2008 PROSTATE CANCER SCREENING DISCUSSION PROSTATE CANCER SCREENING DISCUSSION [facility] Start: 2003 Measurement of occul t blood in single stool specimen FIT [facility] Start: 2003 Screening for malignant neoplasm of colon [facility] Start: 2003 Shingles (RZV) Vacci ne (1 of 2) Shingles (RZV) Vaccine (1 of 2) [facility] Start: 2003 Shingles Vaccine (1 of 2) Shingles Vaccine (1 of 2) [facility] Start: 2003 SHINGRIX VACCINE (1 of 2) SHINGRIX VACCINE (1 of 2) [facility] Start: 2003 Zoster Vaccines (1 o f 2) Zoster Vaccines (1 of 2) [facility] Start: 1998 COLOGUARD (FIT-DNA) COLOGUARD (FIT-D NA) [facility] Start: 1998 Colonoscopy COLONOSCOPY [facility] Start: 1998 COLORECTAL CANCER SCREENING COLORECTAL CANCER SCREENING [facility] Start: [address] COLONOGRAPHY [facility] Start: 1998 FECAL OCCULT BLOOD FECAL OCCULT BLOO D [facility] Start: 1998 [facility]ening [facility] malignant [facility] Start: 1998 SIGMOIDOSCOPY SIGMOIDOSCOPY [facility] Start: 1993 Lipid panel Lipid screen [place], [place] Start: 1988 Lipid 1996 panel - Serum or Plasma Lipid Screening [facility] Start: 1988 [facility] Start: 1988 LIPID SCREEN LIPID SCREEN [facility] Start: 1972 DTaP/Tdap/Td vaccine (1 - Tdap) DTaP/Tdap/Td vaccine (1 - Tdap) [place], [place] Start: 1971 ANNUAL PCP TEAM CHRONIC DISEASE VISIT ANNUAL PCP TEAM CHRONIC DISEASE VISIT [facility] Start: 1971 Hepatitis B surface antibody level LDL CHOLESTEROL [facility] Start: 1971 Hepatitis C screening [facility] Start: 1971 HEPATITIS C SCREENING HEPATITIS C [facility] Start: 1967 Depression Screen [facility] Start: 1955 ABDOMINAL AORTIC ANEURYSM SCREENING ABDOMINAL AORTIC ANEURYSM SCREENING [facility] Start: 1955 Hepatitis C screening Hepatitis C [place], [place] Start: 1953 Lipid panel Lipid Panel [facility] Start: 1955 Medicare Annual Wellness Visit Medicare Annual Wellness Visit (AWV) [facility] Start: 1955 Screening for malignant neoplasm of colon [facility] Start: 1953 Thyroid stimulating hormone measurement TSH Level [facility] End: 01-07-2022 Basic metabolic 2000 panel - Serum or Plasma Basic Metabolic Panel Lab Routine Daily for 3 Days starting 01/05/2022 until 01/07/2022, 1 completed [facility] [employer] Work Phone: Comment on above: Daily for 3 Days sta rting 01/05/2022 until 01/07/2022, 1 completed Continuous pulse oximetry Pulse oximetry, continuous Respiratory Care Routine Every 4hr until discontinued starting 01/01/2022 [employer] Work Phone: Comment on above: Every 4hr until disc ontinued starting 01/01/2022 Culture, Blood 1 Culture, Blood 1 Microbiology STAT 01/01/2022 12:00 AM EDT [employer] Work Phone: Culture, Blood 2 Culture, Blood 2 Microbiology STAT 01/01/2022 12:01 AM EDT [employer] Work Phone: End: 12-31-2021 Intermittent pulse oximetry Pulse Oximetry Spot Check Respiratory Care Routine One Time for 1 Occurrences starting 12/31/2021 until 12/31/2021 [employer] Work Phone: Comment on above: One Time for 1 Occur rences starting 12/31/2021 until 12/31/2021 End: 06-30-2023 Mra head w/o contrst material [facility] Work Phone: Comment on above: 1 Occurrences starti ng 05/31/2022 until 06/30/2023 Oxygen therapy [Minimum Data Set] Initiate Oxygen Therapy Protocol Respiratory Care Routine As Needed until discontinued starting 12/31/2021 [employer] Work Phone: Comment on above: As Needed until disc ontinued starting 12/31/2021 Patient Education Colon polyps Hemorrhoids (DC) [facility] Work Phone: Surgical Pathology Surgical Path ology Lab Routine Gall stone pancreatitis Release Upon Ordering for 1 Occurrences starting 01/02/2022 [employer] Work Phone: Comment on above: Release Upon Orderin g for 1 Occurrences starting 01/02/2022 BV-Ovjbovkyk-Tt jolene ld 201 Work Phone: [facility] NEGATED: Highlighted row has been ruled out! Planned Goals not documented LP-Tzmsmthqs-Ssljfcc ld 201 Work Phone: Immunizations Immunization Date Immunization Notes Care Provider Ileana mckeon 07-15-2020 Moderna (primary 12+ yrs) COVID-19 vaccine, mRNA, spike protein, LNP, PF, 100 mcg/0.5 mL (YMD=411) Radha Burris MD Work Phone: [facility] 06-17-2020 Moderna (primary 12+ yrs) COVID-19 vaccine, mRNA, spike protein, LNP, PF, 100 mcg/0.5 mL (KKT=258) Radha Burris MD Work Phone: [facility] 01-28-2016 influenza, injectable, quadrivalent, preservative free Radha Burris MD Work Phone: [facility] 01-28-2016 influenza virus vaccine, unspecified formulation Radha Burris MD Work Phone: [facility] 01-27-2013 tetanus toxoid, reduced diphtheria toxoid, and acellular pertussis vaccine, adsorbed Thor Fox Other [facility] NEGATED: Highlighted row has not occurred!04-28-2019 influenza, high dose seasonal, preservative-free Patient Objection Thor Fox Other [employer] Other NEGATED: Highlighted row has not occurred!06-14-2015 influenza, injectable,quadriva lent, preservative free, pediatric Patient Objection Thor Fox Other [employer] Other Payers Date Payer Category Payer Self-pay [id number] 2019 Unknown [id number] 2018 Medicare [id number] [id number] 1959 Medicare [id number] 1959 Unknown [id number] 1953 Unknown [id number] 2.16.8 40.1.638593.3.579.2.355 1953 Unknown [id number] 2.16.84 0.1.026615.3.579.2.185 1953 Unknown [id number] 2.16. 840.1.061695.3.579.2.732 1953 Unknown [id number] 2.16.8 40.1.421628.3.579.2.647 1953 Unknown [id number] 2.16.8 40.1.493626.3.579.2.647 1953 Unknown [id number] 2.16.8 40.1.875749.3.579.2.647 1953 Unknown [id number] 2.16. 840.1.459463.3.579.2.175 1953 Unknown [id number] 2.16.84 0.1.085288.3.579.2.593 1953 Unknown [id number] 2.16.84 0.1.073767.3.579.2.593 1953 Unknown [id number] 2.16.84 0.1.020580.3.579.2.593 1953 Unknown [id number] 2.16.84 0.1.367466.3.579.2.593 1953 Unknown [id number] 2.16.84 0.1.900842.3.579.2.593 1953 Unknown [id number] 2.16.84 0.1.143422.3.579.2.593 1953 Unknown [id number] 2.16.84 0.1.715011.3.579.2.593 1953 Unknown [id number] 2.16.84 0.1.939567.3.579.2.593 1953 Unknown [id number] 2.16.84 0.1.166864.3.579.2.593 1953 Unknown [id number] 2.16.84 0.1.656679.3.579.2.593 1953 Unknown [id number] 2.16.84 0.1.491522.3.579.2.593 1953 Unknown [id number] 2.16.84 0.1.818050.3.579.2.593 1953 Unknown [id number] 2.16.84 0.1.533827.3.579.2.593 1953 Unknown [id number] 2.16. 840.1.782169.3.579.2.356 1953 Unknown [id number] 2.16.8 40.1.237700.3.579.2.1046 1953 Unknown [id number] 2.16.8 40.1.048053.3.579.2.1046 1953 Unknown [id number] 2.16.8 40.1.112033.3.579.2.1046 1953 Unknown [id number] 2.16.8 40.1.694826.3.579.2.1046 1953 Unknown [id number] 2.16.8 40.1.232321.3.579.2.1046 1953 Unknown [id number] 2.16. 840.1.575662.3.579.2.356 1953 Unknown [id number] 2.16. 840.1.848721.3.579.2.356 1953 Unknown [id number] 2.16. 840.1.029548.3.579.2.356 1953 Unknown [id number] 2.16. 840.1.031108.3.579.2.356 1953 Unknown [id number] 2.16. 840.1.336232.3.579.2.356 1953 Unknown [id number] 2.16. 840.1.293309.3.579.2.356 1953 Unknown [id number] 2.16. 840.1.725061.3.579.2.356 1953 Unknown [id number] 2.16. 840.1.028350.3.579.2.356 1953 Unknown [id number] 2.16. 840.1.963663.3.579.2.356 1953 Unknown [id number] 2.16. 840.1.526794.3.579.2.356 1953 Unknown [id number] 2.16. 840.1.264962.3.579.2.356 1953 Unknown [id number] 2.16. 840.1.778904.3.579.2.356 1953 Unknown [id number] 2.16. 840.1.899872.3.579.2.356 1953 Unknown [id number] 2.16.8 40.1.206636.3.579.2.1068 1953 Unknown [id number] 2.16.8 40.1.441539.3.579.2.1068 1953 Unknown [id number] 2.16.8 40.1.019610.3.579.2.1244 1953 Unknown [id number] 2.16.84 0.1.404032.3.579.2.1245 1953 Unknown [id number] 2.16.84 0.1.839536.3.579.2.1245 1953 Unknown [id number] 2.16.840 .1.226539.3.579.2.1246 1953 Unknown [id number] 2.16.84 0.1.723305.3.579.2.1259 1953 Unknown [id number] 2.16.84 0.1.699540.3.579.2.1259 1953 Unknown [id number] 2.16.840 .1.143037.3.579.2.1259 Private Health Insurance [id number] Unknown [id number] 2.16.8 40.1.694128.3.579.2.531 Social History Date Type Detail Facility Assertion Unknown if ever smoked [facility] Work Phone: Start: 1955 Sex Assigned At Not on file [place], [place] Start: 06-29-2021 End: 09-13-2022 Sex Assigned At [facility] Start: 01-01-2022 Tobacco smoking stat [facility] Never smoked tobacco [employer] Work Phone: Start: 01-01-2022 End: 12-31-2022 Tobacco use and exposure Smokeless tobacco non-user [employer] Phone: Start: 12-21-2021 End: 01-31-2023 Exposure to SARS-CoV-2 (event) Not sure [employer] Phone: Start: 01-06-2020 End: 04-16-2023 Tobacco smoking status CTIS Ex-smoker [facility] End: 01-06-1984 History of tobacco use Current smoker [facility] End: 01-06-1984 History of tobacco use Cigarette Smoker [facility] Start: 01-27-2020 End: 02-25-2023 Alcohol intake Current drinker of alcohol (finding) [facility] Start: 01-27-2020 End: 09-13-2022 Alcohol intake [facility] Start: 01-06-2020 History SDOH Alcohol Frequency 2 [facility] Start: 05-04-2021 Alcohol Comment 1 beer once a month [facility] Adult Depression Screening Assessment 1 [facility] Work Phone: Start: 1955 Sex Assigned At Male F [facility] Medical Equipment Procedure Code Equipment Code Equipment Origin al Text Equipment Identifier Dates Gas Ispan [employer] Intraocular Vision System [id number] - [id number] Start: 10-15-2017 Lens Iol Ultrase rt 16 - [id number] Start: 10-15-2017 Goals Date Patient Goal Desired Activity /State Functional Status Date Assessment Result Facility NEGATED: Highlighted row Functional performance Functional status health issues are not documented Disease JN-Trqctctak-Ksbbye eld 201 Work Phone: Mental Status Date Assessment Result Facility NEGATED: Highlighted row Cognitive function [Interpretation] Cognitive status health issues are not documented Disease LB-Tgxmniktn-Zlgvpf eld 201 Work Phone: Clinical Notes 2018 to 04-16-2023 Note Date & Type Note Facility 04-16-2023 Procedure note [facility] 04-03-2023 Note Patient here for 1 y ear follow up s/p Watchman implant. Review of Systems Cardiovascular: Positive for chest pain, dyspnea on exertion, irregular heartbeat, leg swelling (resolves by morning), near-syncope, palpitations and syncope. Musculoskeletal: Positive for arthritis, back pain, joint pain and myalgias. Neurological: Positive for dizziness, headaches, light-headedness and sensory change. All other systems reviewed and are negative. [facility] 04-03-2023 Note Cardiovascular Medic [facility] SUBJECTIVE Chief Complaint Patient presents with Atrial Fibrillation Yoli Antunez Jr. is a 67 y.o. male here for his 1 year follow-up s/p LAAO with a Watchman device. HPI He is currently working with Dr. Banks for his dysautonomia. He is following with GI for work-up for his diarrhea. His aphasic sx's may be attributed to migraines. Dr. Banks suggested trialing Topamax. He would be agreeable to try this. Patient Active Problem List Diagnosis Paroxysmal atrial fibrillation (CMS/HCC) Essential hypertension Coronary artery disease involving [place] coronary artery of [place] heart without angina pectoris Recurrent falls History of TIA (transient ischemic attack) Pancreatitis, gallstone Implantable loop recorder present 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 History of anesthesia complications Chronic kidney disease Vocal cord palsy Vitamin D deficiency Vitamin B6 deficiency Vitamin B12 deficiency (non anemic) Serous retinal detachment TIA (transient ischemic attack) Headache Shortness of breath Skin sensation disturbance Restless leg Post-void dribbling Postoperative seroma ADA (obstructive sleep apnea) Multifocal atrial tachycardia Nocturia Myopathy Non-intractable vomiting with nausea Nuclear sclerotic cataract, left Ocular migraine Metabolic acidosis Meniere disease Low back pain Localized, primary osteoarthritis of elbow Left ventricular hypertrophy Lactic acid acidosis Jaundice Hypoparathyroidism (CMS/HCC) Hypomagnesemia Hypocalcemia Hyperlipidemia Hyperglycemia Hydronephrosis Hoarseness History of peptic ulcer History of kidney stones Gout Esophageal dysmotility Expressive aphasia Abnormal swallowing Diverticulosis of small intestine Disorder of autonomic nervous system Difficulty swallowing solids Angina at rest Chronic gouty arthritis Dehydration Artificial knee joint present Atypical migraine Benign prostatic hyperplasia with urinary obstruction Acute renal failure syndrome (CMS/HCC) EMELIA (acute kidney injury) (CMS/HCC) Apnea Arthralgia of upper arm Acute gastric ulcer Abnormal laboratory test result Presence of Watchman left atrial appendage closure device Anxiety Calculus of gallbladder History of acute renal failure History of total thyroidectomy Idiopathic chronic gout of foot without tophus Chronic migraine without aura, with intractable migraine, so stated, with status migrainosus H/O cardiac radiofrequency ablation Osteoarthritis of left hand Paresthesia of bilateral legs Status post right knee replacement Aphasia Bilateral partial vocal cord paralysis Muscle strain Past Medical History: Diagnosis Date Arrhythmia Atrial fibrillation (CMS/HCC) Chronic kidney disease stage 3 b Coronary artery disease Disease of thyroid gland Hypertension Pancreatitis, gallstone TIA (transient ischemic attack) Family History Problem Relation Name Age of Onset Hypertension Mother Mother Cancer Mother Mother Stroke Mother Mother Hypertension Father Father Aortic aneurysm Father Father Cancer Father Father Aortic aneurysm Paternal Grandfather Sudden Neg Hx Social History Tobacco Use Smoking status: Former Packs/day: 1.00 Years: 16.00 Additional pack years: 0.00 Total pack years: 16.00 Types: Cigarettes, Cigars Start date: 1967 Quit date: 1983 Years since quittin.9 Smokeless tobacco: Former Types: Chew Quit date: 1983 Vaping Use Vaping Use: Never used Substance Use Topics Alcohol use: Yes Alcohol/week: 1.0 standard drink of alcohol Types: 1 Cans of beer per week Comment: occasional Drug use: Never Allergies Allergen Reactions Penicillins Other As a child Tikosyn [Dofetilide] Other aphasia Vancomycin Itching Itching hands/feet ROS Cardiovascular: Positive for chest pain, dyspnea on exertion, irregular heartbeat, leg swelling (resolves by morning), near-syncope, palpitations and syncope. Musculoskeletal: Positive for arthritis, back pain, joint pain and myalgias. Neurological: Positive for dizziness, headaches, light-headedness and sensory change. All other systems reviewed and are negative. OBJECTIVE Visit Vitals BP 116/80 (BP Location: Left arm, Patient Position: Sitting) Pulse 79 Ht 1.981 m (6' 6 ) Wt 114 kg (251 lb) SpO2 96% BMI 29.01 kg/m??? Smoking Status Former BSA 2.5 m??? Medications: Current Outpatient Medications: aspirin 81 mg chewable tablet, Chew 1 tablet (81 mg) in the morning. Do not start before March 08, 2022., Disp: 30 tablet, Rfl: 3 calcitriol (Rocaltrol) 0.25 mcg capsule, 1 (one) time each day at the same time., Disp: , Rfl: cyanocobalamin (Vitamin B-12) 1,000 mcg tablet, Take 1.25 mcg by mouth every 7 (seven) days., Disp: , Rfl: dilTIAZem CD (Cardizem CD) 180 mg 24 hr capsule, Take 2 capsules (360 mg) by m (more content not included)... [facility] 04-01-2023 Evaluation note Encounter Date Diagnosis Assessment Notes Mar, Abdominal pain (ICD-10 - R10.9) Mar, Diarrhea (ICD-10 - R19.7) [employer] Other 11-29-2023 Evaluation note* Encounter Date Diagnosis Assessment Notes Treatment Notes Treatment Clinical Notes Feb, Diarrhea (ICD-10 - R19.7) Feb, Hiatal hernia (ICD-10 - K44.9) [employer] Other 11-14-2023 NoteSubjective Yoli Braxtonjordi Isidro is a 67 y.o. male we follow for autonomic dysfunction, orthostatic hypotension. He has episodes of aphagia lasting 1-12 hours associated with presumed drop in BP. He has had expressive aphagia on tilt table testing at the [facility] Dec 2022 (see below). Duration about 12 hours Chief Complaint: Neurogenic orthostatic hypotension Fludrocortisone: no effective Pyridostigmine: side effects Effexor: not effective BP labile Highest BP 150/90mmhg Lowest BP 82/46mmhg Review of Systems Cardiovascular: Positive for near-syncope and syncope. Last syncope Dec 2022. On hay wagon. [place] it coming, did not get off wagon fast enough. Syncope. No trauma. [place] [facility]. 24 hour observation. BP 80/40mmhg Over several hours BP increased. He has noted HR decrease with the syncope into the 50's Neurological: Positive for sensory change. Objective Vitals reviewed. Constitutional: Appearance: Healthy appearance. Neck: Vascular: No JVR. JVD normal. Pulmonary: Effort: Pulmonary effort is normal. Breath sounds: Normal breath sounds. No wheezing. No rhonchi. No rales. Chest: Chest wall: Not tender to palpatation. Cardiovascular: PMI at left midclavicular line. Normal rate. Regular rhythm. Normal S1. Normal S2. Murmurs: There is no murmur. No gallop. No click. No rub. Pulses: Intact distal pulses. Edema: Peripheral edema absent. Abdominal: General: Bowel sounds are normal. Palpations: Abdomen is soft. Tenderness: There is no abdominal tenderness. Musculoskeletal: Normal range of motion. General: No tenderness. Skin: General: Skin is warm and dry. Neurological: General: No focal deficit present. Mental Status: Alert and oriented to person, place and time. Comments: Episode in office, became dizzy, aphasic, BP initially 97/66 then rebounded to 135/85mmhg HR 85bpm. Right arm numb but not weak, in fact he could write. We monitored him while in office, I personal sat on computer. He was able to communicate in all ways and sit upright but had expressive language aphagia. Lab Review: [facility] Tilt. * FINAL IMPRESSIONS * - The test was stopped early at 10 out of 45 minutes of 70 degree tilt. - Systolic blood pressures decreased from 104 mmHg at start to 82 mmHg at end of tilt. - Diastolic blood pressures decreased from 64 mmHg at start to 53 mmHg at end of tilt. - Blood pressure upon return to supine position was 83/53 mmHg. - Heart rates increased from 56 bpm at start to 71 bpm at end of tilt. - Heart rate upon return to supine position was 59 bpm. - ECGs showed: sinus. - Patient signs/symptoms included: CH. PAIN, DIZZINESS, FATIGUE, HEADACHE, INCREASING, LIGHTHEADED, SEE NOTE. - Overall: The test was stopped early which may limit sensitivity / diagnostic accuracy. The test is diagnostic for progressive orthostatic hypotension. The patient had a gradual onset orthostatic hypotensive response, the test was stopped due to developing expressive aphasia. He had warned me prior to the test that he has had this and developed on his prior tilt as well. Assessment/Plan The primary encounter diagnosis was Neurogenic orthostatic hypotension (CMS/HCC). Diagnoses of Autonomic dysfunction, Chronotropic incompetence with autonomic dysfunction, Essential hypertension, and Aphagia were also pertinent to this visit. Problem List Items Addressed This Visit Circulatory Essential hypertension Other Visit Diagnoses Neurogenic orthostatic hypotension (CMS/HCC) - Primary Relevant Medications midodrine (Proamatine) 5 mg tablet Autonomic dysfunction Chronotropic incompetence with autonomic dysfunction Aphagia Patient experienced an episode of expressive aphasia in office. Able to communicate with writing pad. He reports the episode duration is typically 1-[address] to the clinic over 1.5 hours. He c/o dizzy and unable to stand well on his own. His neurological exam was otherwise normal. Initially OH on seated and stand BP. During episode the BP 135/85mmhg. The HR 85bpm. Due to the prolonged aphasia (40 minutes monitoring in seated position, legs elevated, drinking fluids) and no improvement I consulted with Dr. Jimenez, user experience researcher in clinic and decision made to have him evaluated in ED. I called the ED attending and reported the admission, to which she agreed he may need a stroke work up.[facility]11-06-2023 NoteHNO ID: [id number] Author: Joann Stark PA-C Service: ? Author Type: Physician Cook Sauce Type: Progress Notes Filed: 02/25/2023 2:52 PM Note Text: Skin Biopsy Procedure Note Skin Biopsy Accession Number: [id number] Biopsy Date: 02/25/2023 Referring physician: María Pearl APRN, CNP UNIVERSAL PROTOCOL / SAFETY CHECKLIST Procedure to be Performed: skin biopsy Sign In: A Moment of CARE was completed. Personnel directly involved with the procedure wore the appropriate PPE (Personal Protective Equipment). Patient/Surrogate Stated/Verified: PATIENT VERIFIED(optional for EMERGENT procedures): Patient name, Date of , Relevant allergies, and The intended procedure Time Out Communication: Intended patient and procedure match the source documents. Consent documented and matches the intended procedure. Sign Out: SIGN OUT (optional for EMERGENT procedures): All specimen containers correctly labeled. DAVID Downs PA-C Sign in Pt ID verified with patient. Yes, by name and date. Is patient allergic to lidocaine, epinephrine, or bandage adhesive: No Is patient on anticoagulant medicine or blood thinners: No Does patient have a history of surgery on legs or feet: both knee replacements Procedure verified with the patient: Yes, leg bioleftpsies, 2 sites. History 67 year old male with symptoms of neuropathy for 3 years is referred for skin biopsy to evaluate for possible small fiber neuropathy. Written aftercare was given and explained: Yes Patient verbally agrees to proceed with the procedure. Sign in completed: Yes Procedure Note Procedure confirmed with provider and software support representative. Yes, left leg 2 skin biopsies. The procedure was discussed with the patient, including the risks, benefits, instruments and personnel involved in this procedure. All of the patient?s questions were answered. Informed consent discussed and signed: Yes Audible time-out documented: Yes Procedure Start Time: 14:27 Procedure: After the patient was placed in a lateral position the following biopsy sites were identified: left distal leg and left distal thigh. These sites were cleansed with Chloroprep and injected with 0.5cc 1% Lidocaine. Two skin biopsies were obtained using a 3mm biopsy punch and removed with the forceps and surgical blade technique. Bleeding was minimal and hemostasis was obtained by pressure. Sterile dressing was applied to each biopsy site. Audible sign out completed: All specimens labeled, no equipment issues. Procedure End Time: 14:35 Patient tolerated procedure well, without complications. Patient was discharged home. Specimens were labeled and sent to [facility] Cutaneous Nerve Laboratory. Procedure was performed by: Joann Stark PA-C Assistance in supply/equipment preparation performed by: DAVID Downs Sign out is complete.[facility]11-06-2023 History of Present illness Narrative* Joann Stark PA-C - 02/25/2023 2:09 PM EST Skin Biopsy Procedure Note Skin Biopsy Accession Number: [id number] Biopsy Date: 02/25/2023 Referring physician: María Pearl APRN, CNP UNIVERSAL PROTOCOL / SAFETY CHECKLIST Procedure to be Performed: skin biopsy Sign In: A Moment of CARE was completed. Personnel directly involved with the procedure wore the appropriate PPE (Personal Protective Equipment). Patient/Surrogate Stated/Verified: PATIENT VERIFIED(optional for EMERGENT procedures): Patient name, Date of , Relevant allergies, and The intended procedure Time Out Communication: Intended patient and procedure match the source documents. Consent documented and matches the intended procedure. Sign Out: SIGN OUT (optional for EMERGENT procedures): All specimen containers correctly labeled. DAVID Downs PA-C Sign in Pt ID verified with patient. Yes, by name and date. Is patient allergic to lidocaine, epinephrine, or bandage adhesive: No Is patient on anticoagulant medicine or blood thinners: No Does patient have a history of surgery on legs or feet: both knee replacements Procedure verified with the patient: Yes, leg bioleftpsies, 2 sites. History 67 year old male with symptoms of neuropathy for 3 years is referred for skin biopsy to evaluate for possible small fiber neuropathy. Written aftercare was given and explained: Yes Patient verbally agrees to proceed with the procedure. Sign in completed: Yes Procedure Note Procedure confirmed with provider and software support representative. Yes, left leg 2 skin biopsies. The procedure was discussed with the patient, including the risks, benefits, instruments and personnel involved in this procedure. All of the patient s questions were answered. Informed consent discussed and signed: Yes Audible time-out documented: Yes Procedure Start Time: 14:27 Procedure: After the patient was placed in a lateral position the following biopsy sites were identified: left distal leg and left distal thigh. These sites were cleansed with Chloroprep and injected with 0.5cc 1% Lidocaine. Two skin biopsies were obtained using a 3mm biopsy punch and removed with the forceps and surgical blade technique. Bleeding was minimal and hemostasis was obtained by pressure. Sterile dressing was applied to each biopsy site. Audible sign out completed: All specimens labeled, no equipment issues. Procedure End Time: 14:35 Patient tolerated procedure well, without complications. Patient was discharged home. Specimens were labeled and sent to [facility] Cutaneous [facility]. Procedure was performed by: Joann Stark PA-C Assistance in supply/equipment preparation performed by: DAVID Downs Sign out is complete. documented in this encounterAdena Health System10-17-2023 Miscellaneous Notes* Telephone Encounter - Shivani Ambriz RN - 02/05/2023 1:00 PM EDT Images from the original note were not included. María Pearl APRN.ADMINISTRATIVE DIRECTOR You 7 minutes ago (12:52 PM) This is a normal result. [place] YAMILA Carnes, RN * Telephone Encounter - Shivani Ambriz RN - 02/05/2023 12:48 PM EDT Images from the original note were not included. Copper: YAMILA Carnes, RN * Telephone Encounter - Aydee Hunter - 02/05/2023 12:06 PM EDT Scanned in results from [facility] for review documented in this encounterAdena Health System10-12-2023 History of Present illness Narrative* Yossi Chen MD - 01/31/2023 3:00 PM EDT Subjective Patient ID: Yoli Antunez is a 67 y.o. male who presents for Follow-up and Diarrhea (Since hiatal hernia surgery.). HPI 67-year-old male patient who underwent laparoscopic repair of a large paraesophageal hernia with toupet wrap on November 21, 2022. Heartburn, acid reflux and dysphagia have resolved. For the past weeks,he has been having constant, crampy left lower quadrant pain with no relieving factor; no radiation. The pain is usually at 5 out of 10 in LLQ, worse at night and associated with 3-5 non- bloody watery diarrhea; denies sick contact or recent abx use, travel or dietary changes. He reports having colonoscopy at least 4 years ago. Review of Systems Objective Physical Exam Constitutional: no acute distress, well appearing and well nourished Pulmonary: normal respiratory effort; clear to auscultation bilaterally, no wheezes or bronchi Cardiovascular: regular rate and rhythm, no murmurs or extra-heart sounds Abdomen: soft, moderate tenderness in LLQ, no peritoneal sign Musculoskeletal: digits and nails normal without clubbing or cyanosis Skin: normal without rashes or lesion Neurologic: cranial nerve II-XII intact grossly; normal gait Assessment/Plan With the worsening left lower quadrant pain and none bloody watery diarrhea, we talked about the possibility of infectious etiology. I will obtain stool culture. I will obtain CT abdomen/pelvis with IV contrast to rule out colitis. History of AAA; further recommendation after the labs and scan are done. documented in this encounterUnTriHealth [facility] Work Phone: [phone]) 473-427810-12-2023 Instructions* Patient Instructions* Yossi Chen MD - 01/31/2023 3:00 PM EDT I will get stool culture and CT scan to figure out the reason for the abdominal pain and diarrhea documented in this encounterUnTriHealth [facility] Work Phone: [phone]) 129-792810-09-2023 Miscellaneous Notes* Telephone Encounter - Paul Burns RN - 01/28/2023 4:08 PM EDT Images from the original note were not included. María Pearl APRN.ADMINISTRATIVE DIRECTOR You 6 hours ago (9:39 AM) I have a message out to headache clinic about adjusting his medication. YAMILA Cage, RN, BA documented in this encounterAdena Health System10-09-2023 Miscellaneous Notes* Telephone Encounter - Paul Burns RN - 01/28/2023 3:39 PM EDT JESSICA sent MCM to patient. Patient read. YAMILA Cage, RN, BA documented in this encounterAdena Health System10-09-2023 Miscellaneous Notes* Telephone Encounter - Paul Burns RN - 01/28/2023 10:43 AM EDT Images from the original note were not included. María Pearl APRN.ADMINISTRATIVE DIRECTOR You 15 minutes ago (10:27 AM) Thank you. Appears normal. YAMILA Vivar, RN, BA * Telephone Encounter - Paul Burns RN - 01/28/2023 9:58 AM EDT Images from the original note were not included. YAMILA Cage, RN, BA * Telephone Encounter - Aydee Hunter - 01/28/2023 9:36 AM EDT Scanned in results from [facility] for review documented in this encounterAdena Health System10-05-2023 NoteHNO ID: [id number] Author: Peggy Bravo RN Service: ? Author Type: Registered Nurse Type: Progress Notes Filed: 01/24/2023 3:23 PM Note Text: UNIVERSAL PROTOCOL / SAFETY CHECKLIST Procedure to be performed: [facility]: TILT Sign in Communication: Completed Time Out: Team Confirms the Correct Patient, Correct Procedure, Correct Site and Site Marking, Correct Position (if applicable). Time: 1419 STAFF: Concha Malloy DO Affirmation of Time Out: N/A Sign Out Discussion: Completed Briana Emmanuel RN Orders placed 01/23/23 by María Pearl APRN.CNP Allergies: Penicillins, Tikosyn [Dofetilide], and Vancomycin Test done in consult with María Pearl APRN.CNP . Procedure Start Time: 1419 Height 198.1 cm Weight 112.5 kg Patient fasting for 4 hours: Yes Support stockings taken off for procedure: Not applicable Pain Assessment: Patient states none Comfort Measures: Added pillow for head/shoulders Pacemaker: No Comments: Loop recorder and watchmen IV Placement: by Briana Emmanuel Baseline: BP 104/64 HR 56 Pre-Max Tilt : 70 degrees 09 min BP 79/50 HR 75 Max Tilt: 70 degrees 10 min BP 82/53 HR 71 Note: Test was stopped early at the 10 min into 70 degree HUT due to decrease in blood pressure, patient symptoms, and patient request to stop test and resume supine positioning. See Final Report for Diagnosis. IV discontinued at 1520 by Briana Emmanuel. Staff involved in procedure: Peggy Bravo RN; Briana Emmanuel RN Procedure Finish Time: 1523C[facility] NoteHNO ID: [id number] Author: María Pearl APRN.CNP Service: ? Author Type: Nurse Practitioner Type: Progress Notes Filed: 01/23/2023 10:15 AM Note Text: Yoli Antunez is a 67 year old male. Patient presents with: New Patient Consult Jamil is a right handed male here today for evaluation. PMH: Paroxysmal Atrial Fibrillation s/p cardiac ablation x3, hypertension, chronic kidney disease stage 3, Thyroid goiter s/p thyroidectomy 2018, hypothyroidism, GI bleed, abdominal aortic aneurysm, chronic daily headaches, ocular migraines, TIA x2, prolonged QT interval About 3 years ago, he began to experience spells of dizziness and lightheadedness. It has been progressively worsening with time. The dizziness is described as an unsteady sensation. Dizziness is NOT described as a room spinning sensation. 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 The lightheadedness and dizziness does NOT occur while supine or sitting, but only while upright. The lightheadedness and dizziness onsets with being upright. If he lays down, the lightheadedness and dizziness will improve. The orthostatic lightheadedness and dizziness is a daily occurrence, multiple times. The lightheadedness and dizziness can reach the point of near syncope. Near syncope occurs a few times (1-2) per week. He has NOT had a syncopal spell. He will have episodes of expressive aphasia associated with migraines. The aphasia is not directly associated with the lightheadedness and dizziness. The aphasia spells occur every few weeks and can last 30 minutes-300 minutes. Associated with the aphasia, he can have ptosis of his eye lid (R>L). The ptosis of his eye lids can last 30-45 minutes before resolving. No objective weakness in his body is noted, but he will feel generally weak. He has had multiple CT Brain, CTA head/neck, MRA Head/neck that have been unrevealing for his aphasia spells. He is not followed by neurology locally. He does follow with the headache clinic here at [facility]. On May 23, 2022 he did complete a tilt table test. He reports immediately upon the table being place upright, his blood pressure dropped significantly and he developed aphasia. He was sent to the ER and workup in ER was negative. The results are not viewable for the tilt table test. Non-diagnostic test due to lack of data as it was stopped early. He was evaluated by cardiology, Jackie Banks ADMINISTRATIVE DIRECTOR, at the [facility]. Jackie had a concern for autonomic dysfunction. She placed Jamil on pyridostigmine, but he had significant diarrhea and it was thus discontinued. He has constant bilateral tinnitus. He states it sounds like an air gabriel. He has not seen ENT. He has a ILR and watchman. These have not revealed a cause for his lightheadedness or dizziness. He did see his user experience researcher this week who felt his symptoms are not cardiac in nature. Cardiac workup negative. He has tried increasing water intake and sodium intake, but this has not been beneficial. He has NOT tried compression stockings or an abdominal binder. Vitamin B12 level mildly low on December 24, 2022. This was NON-fasting. MRA Brain July 09, 2022: The superior cerebellar arteries, posterior inferior cerebellar arteries, and the basilar artery are within normal limits. The posterior cerebral arteries are unremarkable. The intracranial segments of the internal carotid arteries are within normal limits. There are normal anterior and middle cerebral arteries. Anterior communicating artery is patent. Posterior communicating arteries are present on the left side and very small in caliber on the right side.. IMPRESSION: No focal stenosis, occlusion, or aneurysmal dilatation. Complete minto of Michel. He is brought in today by his (Sarah). Medications Reviewed benazepril (LOTENSIN) 5 mg tablet ergocalciferol 50,000 unit capsule (VITAMIN D2, DRISDOL) Take 50,000 Units by mouth one time a week. calcium carbonate 500 mg calcium (1,250 mg) chewable tablet Take 1 tablet by mouth once daily. calcitriol (ROCALTROL) 0.25 mcg capsule Take 0.25 mcg by mouth once daily. aspirin, enteric coated (ASPIRIN, ENTERIC COATED) 81 mg EC tablet Take 81 mg by mouth once daily. dilTIAZem HCl 360 mg 24 hr tablet Take 1 tablet by mouth once daily. nitroglycerin sublingual (NITROQUICK) 0.4 mg SL tablet Dissolve 0.4 mg under the tongue every 5 minutes as needed. levothyroxine (LEVOXYL) 175 mcg tablet Take 1 tablet by mouth daily before breakfast. pramipexole (MIRAPEX) 1 mg tablet Take 2 mg by mouth daily at bedtime. benazepril (LOTENSIN) 10 mg tablet Take 1 tablet by mouth once daily. (Patient not taking: Reported on (more content not included)...[facility]10-04-[facility]23 NoteHNO ID: [id number] Author: Kristen Wagner OCCA Service: ? Author Type: Bracelet Former Type: Progress Notes Filed: 01/23/2023 10:15 AM Note Text: Answers submitted by the patient for this visit: Compass 31 (Submitted on 01/17/2023) In the past year, have you ever felt faint, dizzy, goofy , or had difficulty thinking soon after standing up from a sitting or lying position?: Yes In the past year, have you ever noticed color changes in your skin, such as red, white, or purple?: No In the past 5 years, what changes, if any, have occurred in your general body sweating?: I sweat much more than I used to Do your eyes feel excessively dry? : Yes Does your mouth feel excessively dry? : Yes For the symptom of dry eyes or dry mouth that you have had for the longest period of time, is this symptom:: Getting somewhat worse In the past year, have you noticed any changes in how quickly you get full when eating a meal?: I get full more quickly now than I used to In the past year, have you felt excessively full or persistently full (bloated feeling) after a meal?: A lot of the time In the past year, have you vomited after a meal? : Never In the past year, have you had a cramping or colicky abdominal pain?: A lot of the time In the past year, have you had any bouts of diarrhea?: Yes In the past year, have you been constipated? : No In the past year, have you ever lost control of your bladder function?: Occasionally In the past year, have you had difficulty passing urine?: Never In the past year, have you had trouble completely emptying your bladder?: Occasionally In the past year, without sunglasses or tinted glasses, has bright light bothered your eyes?: Constantly In the past year, have you had trouble focusing your eyes?: Occasionally Is this most troublesome symptom with your eyes (i.e. sensitivity to bright light or trouble focusing) getting:: Getting somewhat worse (Submitted on 01/17/2023) When standing up, how frequently do you get these feelings or symptoms?: Frequently How would you rate the severity of these feelings or symptoms?: Severe In the past year, have these feelings or symptoms that you have experienced:: Gotten much worse (Submitted on 01/17/2023) How frequently does this occur?: Constantly How severe are these bouts of diarrhea?: Severe Are your bouts with diarrhea getting:: Much worse (Submitted on 01/17/2023) How severe is this sensitivity to bright light?: Moderate (Submitted on 01/17/2023) How severe is this focusing problem? : [facility] NoteUT Electrophysiology Consult Note Reason for visit: dysautonomia HPI: Yoli Antunez Jr. is a 67 y.o. year old with past medical history of CAD, htn, afib s/p watchmen He is here for follow-up regarding dizziness and chest discomfort. He has been noted to have multiple catheterizations in the past and ischemic evaluations and has mild to moderate nonobstructive disease in the LAD, moderate to severe ostial narrowing of small diagonal branch that was not intervened upon. He was started on Ranexa for chest pain and states he was intolerant of medication and did not help. Continues to have bouts of dizziness and does have chronic headache. Patient has been tried on Prostigmin and venlafaxine with no improvement. We discussed increasing hydration and sodium. He does drink a good amount of fluids discussed increasing salt intake. It appears he has a tilt table scheduled as well. He has a [email or web address] loop and I reviewed his loop data, he is due for transmission later this month but I will adjusted to 01/22/2023 and have patient do a manual transmission. I reviewed this after the visit and there were no reported events on his loop with no events reported for the lifetime of the loop PMH: Past Medical History: Diagnosis Date Arrhythmia Atrial fibrillation (CMS/HCC) Chronic kidney disease stage 3 b Coronary artery disease Disease of thyroid gland Hypertension Pancreatitis, gallstone TIA (transient ischemic attack) PSH: Past Surgical History: Procedure Laterality Date APPENDECTOMY ATRIAL ABLATION SURGERY flutter and fib ablation BACK SURGERY CARDIAC CATHETERIZATION CHOLECYSTECTOMY CTA CHEST W AND/OR WO IV CONTRAST 07/22/2020 CT CHEST ANGIOGRAM W AND/OR WO IV CONTRAST A[facility]ADI CONVERSION CTA CHEST W AND/OR WO IV CONTRAST 08/30/2020 CT CHEST ANGIOGRAM W AND/OR WO IV CONTRAST A[facility]ADI CONVERSION CTA CHEST W AND/OR WO IV CONTRAST 08/24/2021 CT CHEST ANGIOGRAM W AND/OR WO IV CONTRAST 08/24/2021 CTA CHEST W AND/OR WO IV CONTRAST 07/06/2021 CT CHEST ANGIOGRAM W AND/OR WO IV CONTRAST 07/06/2021 CTA CHEST W AND/OR WO IV CONTRAST 06/20/2017 CT CHEST ANGIOGRAM W AND/OR WO IV CONTRAST 06/20/2017 MRA HEAD WO IV CONTRAST 07/09/2022 MR HEAD ANGIO WO IV CONTRAST 07/09/2022 [facility] MR IMAGING MRA NECK WO IV CONTRAST 07/09/2022 MR NECK ANGIO WO IV CONTRAST 07/09/2022 [facility] MR IMAGING NECK SURGERY THYROIDECTOMY SH: Social Determinants of Health Tobacco Use: Medium Risk (10/19/2022) Patient History Smoking Tobacco Use: Former Smokeless Tobacco Use: Former Passive Exposure: Not on file Alcohol Use: Not on file Financial Resource Strain: Not on file Food Insecurity: Not on file Transportation Needs: Not on file Physical Activity: Not on file Stress: Not on file Social Connections: Not on file Intimate Partner Violence: Not on file Depression: Not at risk (07/20/2022) PHQ-2 PHQ-2 Score: 0 Housing Stability: Not on file Allergies: Allergies Allergen Reactions Penicillins Other As a child Tikosyn [Dofetilide] Other aphasia Vancomycin Itching Itching hands/feet Weight: 117kg Visit Vitals BP 96/62 (BP Location: Left arm, Patient Position: Sitting) Pulse 76 Ht 1.981 m (6' 6 ) Wt 117 kg (257 lb) SpO2 96% BMI 29.70 kg/m??? Smoking Status Former BSA 2.54 m??? Meds: Current Outpatient Medications on File Prior to Visit Medication Sig Dispense Refill aspirin 81 mg chewable tablet Chew 1 tablet (81 mg) in the morning. Do not start before March 08, 2022. 30 tablet 3 benazepril (Lotensin) 10 mg tablet Take 1 tablet every day by oral route for 90 days. calcitriol (Rocaltrol) 0.25 mcg capsule 1 (one) time each day at the same time. cyanocobalamin (Vitamin B-12) 1,000 mcg tablet Take 1.25 mcg by mouth every 7 (seven) days. dilTIAZem CD (Cardizem CD) 180 mg 24 hr capsule Take 2 capsules (360 mg) by mouth in the morning. 180 capsule 3 levothyroxine (Synthroid, Levoxyl) 150 mcg tablet Take 150 mcg by mouth every other day. levothyroxine (Synthroid, Levoxyl) 175 mcg tablet every other day. nitroglycerin (Nitrostat) 0.[address] 0.4 mg under the tongue if needed each day. ranolazine (Ranexa) 500 mg 12 hr tablet Take 1 tablet (500 mg) by mouth in the morning and at bedtime. Do not crush, chew, or split. 180 tablet 3 [DISCONTINUED] pramipexole (Mirapex) 1 mg tablet Take 2 mg by mouth if needed. rosuvastatin (Crestor) 20 mg tablet Take 1 tablet (20 mg) by mouth at bedtime. 90 tablet 3 No current facility-administered medications on file prior to visit. ROS: Cardio Basic Cardiovascular Symptoms: no lightheadedness, no leg edema, no syncope, no orthopnea, no PND, no claudication, Constitutional Constitutional: no fever, no night sweats, no significant weight gain, no significant weight loss, no exercise intolerance Eyes Eyes: no dry eyes, no irritation, no vision change ENMT Ears: no difficulty hearing, no (more content not included)...[facility]10-02-2023 NotePatient here for 1 mo follow up. He was started on Crestor and Ranexa by Dr. Gonsalez last month. He didn't start Crestor because my cholesterol is good . He did start Ranexa but doesn't think it's helping him with angina. Says he actually feels worse. He presented to [facility] ED last week for CVA-like symptoms but was told he didn't have stroke. Review of Systems Cardiovascular: Positive for chest pain (with asphasia this morning), dyspnea on exertion, irregular heartbeat, leg swelling (minimal), near-syncope and palpitations. Respiratory: Positive for shortness of breath. Musculoskeletal: Positive for arthritis, back pain, joint pain, myalgias and neck pain. Neurological: Positive for dizziness, headaches and light-headedness. All other systems reviewed and are negative.[facility] 12-31-2022 NoteHNO ID: [id number] Author: Sarbjit Richardson APRN.ADMINISTRATIVE DIRECTOR Service: ? Author Type: Nurse Practitioner Type: Progress Notes Filed: 12/31/2022 5:04 PM Note Text: [facility] Follow up visit December 31, 2022 Chief Complaint: headache and dizziness Impression and Plan last visit: 09/13/2022 with me Yoli Antunez is a 67 year old year old male, with a history of multiple medical problems including HTN, A-FIB, CAD, CKD, HTN, hypothyroidism, probable TIAs, GI bleed, AAA, chronic daily headaches with cervicogenic and migraine component, imbalance, and dizziness.He reports chronic headaches/migraines of varying intensity with typical migrainous features.He also describes Episodes of aphasia and dizziness w/headaches that have been increasing in frequency. Left eye will droop followed by aphasia. He has had multiple workups for stroke. He was evaluated by Cardiology at the [facility] for syncopal episodes. Likely a neurocardiogenic type mechanism closely related to migraine pathology. Started on Effexor stopped due to side effects, Pyridostigmine also stopped due to side effects. He reports trying medications for anxiety but none have been effective. Feels headaches are now almost daily - after infusion reported dizziness, feeling of euphoria and feeling out of it. Which was related to effexor. ICHD-3 Diagnosis: Chronic Migraine Headache (CM) PLAN: Continue Vyepti 100mg -evaluate response if needed increase the does Interval Headache History: 10/18/2022 Vyepti 100 mg x2 Lightehead and euphoric the day after Vyepti #1 The day after Vyepti # 2- walking to the barn - legs gave way - fell, eyelids shut he could not open them, aphasia, dizziness . put in in the front film loader and helped him to the house - episode lasted 6 hours. The last headache he had with Vyepti occurred the day after treatment Denies reduction frequency and severity Vestibular Rehab-not much luck Headaches are daily - periods during the day that he is headache free Dizziness occurs with headaches. Dizziness, headache and neck pain resolve when he lays down Triggers- exertion on workload, bending down and neck extension Migraine 2-3 a month - he will lay down and they go away by the next morning Headaches - sitting down and rest will reduce intensity and eventually resolve Tinnitus worse with headache Aphasia - stops talking - occurred the other day with chest pain Sometimes occurs with headache - aphasia will last about 6 hours 12/23/2022 ED: 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 a wagon load of hay - he was dizzy, chest pain, SOB- went to the ED- workup negative. Treated for hypotension. Workup essentially unremarkable including troponins and ECG 09/11/[address] [facility]- Cardiology - Jackie Banks FINAL INSPECTION SUPERVISOR wrote: I copied and pasted my initial consult note from [facility] date 07/20/2022 for continuity of care: Hx paroxysmal atrial fibrillation. Undervent a watchman device implant at [facility] 03/06/2022. History of CAD. AAA not increased, monitored. Hx hypertension 10 years. No diabetes. Hx thyroid removal for goiter 2017. Hx TIA for the last 5 years. At least two. Intermittent prolong QT interval on EKG. Loop recorder for atrial fibrillation. Negative findings. Bouts of aphagia which began with the TIA onset. Aphagia monthly. Loss of ability to form words. Eyelid will close (left side) -cant open. Several stroke workups negative. Has seen neurology for the aphagia. Hx of migraines. Last evaluated one month ago by neurology [facility]. Recent MRA MRV. HPI: Syncope began about 10 years ago. Triggers: out of the blue or heavy exertion. Most episodes he sits and recovers. Acute dizziness, trouble breathing, chest pounding (not associated with atrial fibrillation). More recently sent for headupright tilt. Reproduced dizziness, lightheaded. Then had aphagia for three hours on tilt. ER visit. Negative. Syncope and aphagia not associated per patient. After episode is weak and tired. No syncope or seizures in the family. Last syncope 6 months ago while walking in kitchen, three steps. Dizzy prior. No nausea or sweating. Hit the floor. LOC few minutes. No seizure activity. No loss of bowel or bladder. Normally episodes occur while upright. Orthostatic blood pressures historically are good, Trouble with swallowing. No constipation. We added venlafaxine, did not tolerate- caused DUMONT Added pyridostigmine but not effective and caused excessive diarrhea Assessment/Plan The primary encounter diagnosis was Autonomic dysfunction. Diagnoses of Syncope and collapse, Essential hypertension, Labile blood glucose, and Pain of left calf were also pertinent to this visit. Problem List Items Addressed This Visit Referred back to [facility]; Headache 1 Onset: - Migraine headache s Location: frontal (occipital vertex) Quality/ (more content not included)...[facility]09-11-2023 History of Present illness Narrative* Sarbjit Richardson APRN.ADMINISTRATIVE DIRECTOR - 12/31/2022 3:15 PM EDT [facility] Follow up visit December 31, 2022 Chief Complaint: headache and dizziness Impression and Plan last visit: 09/13/2022 with me Yoli Antunez is a 67 year old year old male, with a history of multiple medical problems including HTN, A-FIB, CAD, CKD, HTN, hypothyroidism, probable TIAs, GI bleed, AAA, chronic daily headaches with cervicogenic and migraine component, imbalance, and dizziness.He reports chronic headaches/migraines of varying intensity with typical migrainous features.He also describes Episodes of aphasiaand dizziness w/headaches that have been increasing in frequency. Left eye will droop followed by aphasia. He has had multiple workups for stroke. He was evaluated by Cardiology at the [facility] for syncopal episodes. Likely a neurocardiogenic type mechanism closely related to migraine pathology. Started on Effexor stopped due to side effects, Pyridostigmine also stopped due to side effects. He reports trying medications for anxiety but none have been effective. Feels headaches are now almost daily - after infusion reported dizziness, feeling of euphoria and feeling out of it. Which was related to effexor. ICHD-3 Diagnosis: Chronic Migraine Headache (CM) PLAN: Continue Vyepti 100mg -evaluate response if needed increase the does Interval Headache History: 10/18/2022 Vyepti 100 mg x2 Lightehead and euphoric the day after Vyepti #1 The day after Vyepti # 2- walking to the barn - legs gave way - fell, eyelids shut he could not open them, aphasia, dizziness . put in in the front film loader and helped him to the house - episode lasted 6 hours. The last headache he had with Vyepti occurred the day after treatment Denies reduction frequency and severity Vestibular Rehab-not much luck Headaches are daily - periods during the day that he is headache free Dizziness occurs with headaches. Dizziness, headache and neck pain resolve when he lays down Triggers- exertion on workload, bending down and neck extension Migraine 2-3 a month - he will lay down and they go away by the next morning Headaches - sitting down and rest will reduce intensity and eventually resolve Tinnitus worse with headache Aphasia - stops talking - occurred the other day with chest pain Sometimes occurs with headache - aphasia will last about 6 hours 12/23/2022 ED: 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 a wagon load of hay - he was dizzy, chest pain, SOB- went to the ED- workup negative. Treated for hypotension. Workup essentially unremarkable including troponins and ECG 09/11/[address] [facility]- Cardiology - Jackie Banks FINAL INSPECTION SUPERVISOR wrote: I copied and pasted my initial consult note from [facility] date 07/20/2022 for continuity of care: Hx paroxysmal atrial fibrillation. Undervent a watchman device implant at [facility] 03/06/2022. History of CAD. AAA not increased, monitored. Hx hypertension 10 years. No diabetes. Hx thyroid removal for goiter 2017. Hx TIA for the last 5 years. At least two. Intermittent prolong QT interval on EKG. Loop recorder for atrial fibrillation. Negative findings. Bouts of aphagia which began with the TIA onset. Aphagia monthly. Loss of ability to form words. Eyelid will close (left side) -cant open. Several stroke workups negative. Has seen neurology for the aphagia. Hx of migraines. Last evaluated one month ago by neurology [facility]. Recent MRA MRV. HPI: Syncope began about 10 years ago. Triggers: out of the blue or heavy exertion. Most episodes he sits and recovers. Acute dizziness, trouble breathing, chest pounding (not associated with atrial fibrillation). More recently sent for headupright tilt. Reproduced dizziness, lightheaded. Then had aphagia for three hours on tilt. ER visit. Negative. Syncope and aphagia not associated per patient. After episode is weak and tired. No syncope or seizures in the family. Last syncope 6 months ago while walking in kitchen, three steps. Dizzy prior. No nausea or sweating. Hit the floor. LOC few minutes. No seizure activity. No loss of bowel or bladder. Normally episodes occur while upright. Orthostatic blood pressures historically are good, Trouble with swallowing. No constipation. We added venlafaxine, did not tolerate- caused DUMONT Added pyridostigmine but not effective and caused excessive diarrhea Assessment/Plan The primary encounter diagnosis was Autonomic dysfunction. Diagnoses of Syncope and collapse, Essential hypertension, Labile blood glucose, and Pain of left calf were also pertinent to this visit. Problem List Items Addressed This Visit Referred back to [facility]; Headache 1 Onset: - Migraine headache s Location: frontal (occipital vertex) Quality/Description: pressure Associated Symptoms: Photophobia: yes - only with severe headaches (does not kick in often) Phonophobia: no Nausea: no Vomiting: no Other symptoms: neck pain, dizziness and relieved in supine position (left eye droop and aphasia bouts) Worse with activity: yes Number of migraine headache days/month: 3 Migraine Severity: range from 2-6-7/10. Number of NON-migraine headache days/month: 27 Non-migraine headache severity: 5 Total Number of headache days/month: 30 Duration of headaches with treatment: Duration of attacks with treatment: lasts for several hours -then recur later. Current preventive treatment: Vyepti 100mg - one dose Current abortive treatment: lays down if he can Aspirin Triggers: fasting/hunger and exertion/exercise (exertion related) Onset of headache to peak: varies Relieving factors: lying down and quiet Most common time of day for headache to begin: anytime Aura: kaleidoscope vision Headache status since the last visit: worse Preventative: Vyepti 100mg X2 - declined further infusions Abortive: none Prior Therapies Duration of Use Dose Reason for Discontinuation Other Therapies Physical therapy Analgesic Diclofenac (Voltaren, Cataflam, Cambia) Indomethacin (Indocin) Ketorolac (Toradol) Tramadol (Ultram) Anti-Convulsant Gabapentin (Neurontin) diarrhea Lamotrigine (Lamictal) Pregabalin (Lyrica) Topiramate (Topamax, Trokendi XL, Qudexy) Anti-Depressant and Antipsychotic Amitriptyline (Elavil) Bupropion (Wellbutrin) Duloxetine (Cymbalta) Nortriptyline (Pamelor, Aventyl) Paroxetine (Paxil) Antiemetics Metoclopramide Ondansetron Anti-Migraine cannot use- CAD and TIA Blood Pressure Amlodipine Diltiazem (Cardizem) Metoprolol (Lopressor,Toprol XL) Nifedipine (Procardia) MABs Erenumab (Aimovig) not effective GEPANTS Ubrogepant (Ubrelvy) not effective Rimegepant (Nurtec) not effective Botulinum Toxin Onabotulinum Toxin A (Botox) Muscle Relaxer Chlorzoxazone (Parafon Forte) Orphenadrine (Norflex, Norgesic forte) Tizanidine (Zanaflex) Other Medications Prednisone Over the Counter Medications Aspirin cannot take alot Current Outpatient Medications Medication Sig ergocalciferol 50,000 unit capsule (VITAMIN D2, DRISDOL) Take 50,000 Units by mouth one time a week. calcium carbonate 500 mg calcium (1,250 mg) chewable tablet Take 1 tablet by mouth once daily. calcitriol (ROCALTROL) 0.25 mcg capsule Take 0.25 mcg by mouth once daily. aspirin, enteric coated (ASPIRIN, ENTERIC COATED) 81 mg EC tablet Take 81 mg by mouth once daily. omeprazole (PRILOSEC) 20 mg capsule Take 20 mg by mouth once daily. benazepril (LOTENSIN) 10 mg tablet Take 1 tablet by mouth once daily. dilTIAZem HCl 360 mg 24 hr tablet Take 1 tablet by mouth once daily. nitroglycerin sublingual (NITROQUICK) 0.4 mg SL tablet Dissolve 0.4 mg under the tongue every 5 minutes as needed. levothyroxine (LEVOXYL) 175 mcg tablet Take 1 tablet by mouth daily before breakfast. pramipexole (MIRAPEX) 1 mg tablet Take 2 mg by mouth daily at bedtime. febuxostat (ULORIC) 40 mg tab Take 40 mg by mouth once daily. (Patient not taking: Reported on 10/18/2022) No current facility-administered medications for this visit. PAST MEDICAL HISTORY Diagnosis Date AAA (abdominal aortic aneurysm) without rupture (HCC) Arthritis Atrial fibrillation/flutter CAD (coronary artery disease) CKD (chronic kidney disease) stage 3, GFR 30-59 ml/min ([facility]) Ex-smoker Gastric ulcer GERD (gastroesophageal reflux disease) Gout History of GI bleed HLD (hyperlipidemia) Hypertension 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 ADA treated with BiPAP Peripheral neuropathy Restless leg syndrome TIA (transient ischemic attack) x 2 ALLERGIES Allergen Reactions Penicillins Unknown Tikosyn [Dofetilide] Other: See Comments Aphasia, dizzy, muscle cramps Vancomycin Anaphylaxis MR neck / head angio 07/09/2022- at [facility] Impression No gross evidence for flow-limiting stenosis of bilateral extrarenal vertebral or carotid arteries accounting for extensive patient motion artifact. If persistent concern for an abnormality of the carotid or vertebral arteries, consider CTA if clinically indicated. Impression No focal stenosis, occlusion, or aneurysmal dilatation. Complete minto of Michel. CT brain 05/23/2022 Impression *Negative noncontrast CT of the brain. FINDINGS: No intracranial blood products, mass or midline shift. Cerebral volume is age compatible. The ventricular and cisternal configuration is symmetric. No indication of hydrocephalus. Lind-white matter differentiation is preserved. No large regions of low-attenuation or sulcal effacement. Paranasal sinuses, mastoids and middle ear structures appear normally aerated. MRI Brain 12/15/2020 IMPRESSION: No acute intracranial findings. Mild sequela of chronic microvascular ischemia. RESULT: Acute Change: There is no evidence of restricted diffusion to suggest an acute infarct. Hemorrhage: No evidence of prior parenchymal hemorrhage on the SWI. Mass Lesion/ Mass Effect: No evidence of an intracranial mass or extra-axial fluid collection. No significant mass effect. Chronic Change: Scattered punctate foci of increased T2 and FLAIR signal are noted in the supratentorial white matter which is a nonspecific finding, but likely represents minimal chronic microvascular ischemia. Parenchyma: No significant volume loss for age. The brain parenchyma is otherwise within normal limits of signal intensity and morphology. Ventricles: Normal caliber and morphology. Skull Base: Hypothalamic and pituitary region are grossly normal. Craniocervical junction is normal. No significant marrow replacement process. Vasculature: Major intracranial arterial structures, and dural venous sinuses show typical flow void, suggesting patency by spin echo criteria. Other: The visualized paranasal sinuses and mastoid air cells are clear. The orbits and extracranial soft tissues are unremarkable. CT brain: 12/14/2020 IMPRESSION: No CT evidence of acute large territory infarction or intracranial hemorrhage RESULT: Acute ischemic change: None. ASPECT Score = 10 Hemorrhage: No evidence of acute intracranial hemorrhage. ECASS hemorrhagic transformation score: Not Applicable Mass Lesion / Mass Effect: There is no evidence of an intracranial mass or extraaxial fluid collection. No significant mass effect. Chronic change: Carotid siphon calcifications are noted. Incidental mild prominence LEFT basal ganglia perivascular space prominence. Incidental/developmental mild retrocerebellar CSF prominence communicating with the fourth ventricle. None otherwise apparent in this modality. Parenchyma: There is no significant volume loss. The brain parenchyma is otherwise within normal limits for age. Ventricles: Normal caliber and morphology. Other: The partially imaged paranasal sinuses show scattered areas of mild mucosal thickening, mostly in the ethmoid sinuses. Left-sided ocular lens replacement and scleral buckle changes. Skull base osteopenia, and partially imaged atlantoaxial arthritic changes. Math And Physics Instructor (topogram) images: No additional findings. HEADACHE SCORES: Headache Questions 06/26/2021 09/06/2022 12/24/2022 ER visits since last office visit: 0 0 0 Hospital stays since last office visit 0 0 0 Limited ADLs in the last month: - 15 15 Days missed from work or school in the last month: 20 4 - Days headache pain free in the last month: - 10 15 Days per month with ALL of the following symptoms - decreased productivity, light sensitivity and nausea: - - 5 Initial improvement of headache after botox injection at last visit: - - Not applicable, I did not have a botox injection at my last visit PRN medication usage in the last month: - - 10 Patient impression of improvement since last visit: Not applicable, this is my first visit No change Minimally worse HIT-6 05/28/2022 09/06/2022 12/24/2022 HIT-6 65 (Severe impact) 64 (Severe impact) Incomplete APRYL - 2/7 SCORES 05/28/2022 09/06/2022 12/24/2022 APRYL-2 Score 0 0 0 Migraine Specific QOL - Higher scores indicate better HRQL 05/28/2022 09/06/2022 12/24/2022 Role Function-Restrictive Transformed Score (range: 0-100) 54.29 45.71 48.57 Role Function-Preventive Transformed Score (range: 0-100) 65 75 65 Emotional Function Transformed Score (range: 0-100) 46.67 40 46.67 PHQ-9 05/28/2022 09/06/2022 12/24/2022 Score 10 5 12 Review of Systems: Review of system: unchanged from the previous visit (sleep patterns, mood, energy, appetite, stress, exercising). PHYSICAL EXAMINATION: VS: BP 123/77 Pulse 69 Ht 198.1 cm (6' 6 ) Wt 114.8 kg (253 lb) BMI 29.24 kg/m General: well appearing, in no acute distress, well-hydrated, well nourished, alert HEENT: Normocephalic/atraumatic., Thyroid non-tender, without palpable masses/nodules or enlargement., No carotid bruits ascultated. Musculoskeletal: No gross joint deformities. , Tenderness to palpation of cervical spine and upper trapezius: Yes bilateral., Suboccipital tenderness: L>R. , Trigger Points: cervical paraspinous muscles L>R and splenius capitus muscles L>R , Cervical ROM: significantly restricted in all directions. Neurological: Pain Behaviors: rubbing affected body part, solicited verbal complaints, and unsolicited verbal complaints Mental Status: Alert and oriented to person, place and time. Affect is normal and appropriate. Speech is spontaneous and fluent without dysarthria, normal in rate, volume and articulation, and clear,coherent, and relevant. Short and fpc memory, cognition and general fund of knowledge are good. Attention span and concentration are excellent. Cranial Nerves: II-Visual frenandez are full. . III, IV, - extraocular muscles intact bilaterally, PERRL, nystagmus absent, V-normal facial sensation to light touch. VII-face is symmetric without evidence of weakness. VIII-hearing intact. IX, X-palate elevates symmetrically. XI-SCM 5/5 with shoulder shrug. XII-tongue protrudes midline with normal movements. No atrophy or fasciculations of the tongue. Motor: Normal muscle tone and bulk. No evidence of atrophy or fasciculations. Strength is normal, 5/5. Sensation: normal light touch in the upper and lower extremities. Cerebellar: No ataxia. Tremor: absent. Normal finger to nose. Deep Tendon Reflexs: 1+ and symmetrical. . Gait examination is normal. Unsteady with tandem. 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 Multiple work ups for stroke. Chronic daily headaches with a cervicogenic component and episodes of dizziness aphasia associated with headaches triggered by exertion, bending over and neck extension. When initially seen he was treated with a greater occipital nerve injection followed by aphasia. He was evaluated in [place] for syncope - felt it was neurocardiogenic mechanism related to migrainepathology. Abnormal tilt with aphasic episodic. His neurological examination is essentially normal at this visit. Autonomic dysfunction, ? Orthostatic hypotension/dizziness. ICHD-3 Diagnosis: Chronic Migraine Headache (CM) Autonomic dysfunction (primary encounter diagnosis) Dizzy spells PLAN: We discussed increasing Vyepti to 300mg, he declined going forward with infusions Will refer to Gen Neuro to be evaluated for orthostatic hypotension/dizziness/autonomic dysfunction HEADACHE MANAGEMENT: (You are the primary guardian of your health and headache. Keep track of all medications: This includes the reason for use, side effects and benefits.) MEDICATION TREATMENT: Medications to Start Taking None Headache education was done. Discussed lifestyle modification including increased oral hydration, decreased caffeine, exercise and stress management. Discussed treatment options including preventive and acute medications, natural supplements, and infusion therapy. Discussed medication overuse headache and to limit use of acute treatments to no more than 2 days/week or 10 days/month. Discussed medication side effects, adverse reactions and drug interactions. Written educational materials and patient instructions outlining all of the above were given. RESEARCH: None at this time Follow-up: 3 months, 6 months, PRN . Level of service: Est level 5 (40-54 min). Time spent 45 min on the day of service, which included preparing to see the patient, [id number] patient care, completing clinical documentation, obtaining and/or reviewing separately obtained history, performing a medically appropriate examination, counseling and educating the patient/family/caregiver, and ordering medications, tests, or procedures. Sarbjit Richardson APRN.ADMINISTRATIVE DIRECTOR Headache Section [facility] December 31, 2022 5:03 PM documented in this encounterA[facility]23 NotePatient here for follow [facility]. 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 and suddenly starting having chest pain, dizzniess, diaphoresis, and SOB.[facility]09-08-2023 NoteUTP CARDIOLOGY PROGRESS NOTE HPI: Yoli Antunez Jr. is a 67 y.o. male with a past medical history including HTN, CAD, Afib s/p watchman. HPI Patient presents today for ER visit follow-up. Patient's states that he was seen in the ER several days ago after an episode of chest pain. Patient states he was unloading They will when he developed chest pain identical to the chest pain he normally has. In emergency department, cardiac enzymes were negative. Patient denies any recurrence of significant chest pain since being evaluated. Patient has had many ischemic evaluations over the past few years. He has had 3-4 cardiac catheterizations, as per his report. Additionally, he has had numerous stress test. He was noted to have mild to moderate nonobstructive disease in the LAD. He has moderate to severe ostial narrowing of a small diagonal branch that was not intervened upon. He states his most recent cardiac catheterization within the past year, no stents were placed. No lower extremity edema, Orthopnea, paroxysmal nocturnal dyspnea. No syncope. Visit Vitals BP 112/75 (BP Location: Left arm, Patient Position: Sitting) Pulse 72 Ht 1.981 m (6' 6 ) Wt 115 kg (254 lb) SpO2 97% BMI 29.35 kg/m??? Smoking Status Former BSA 2.52 m??? Allergies Allergen Reactions Penicillins Other As a child Tikosyn [Dofetilide] Other aphasia Vancomycin Itching Itching hands/feet Medications: Current Outpatient Medications on File Prior to Visit Medication Sig Dispense Refill aspirin 81 mg chewable tablet Chew 1 tablet (81 mg) in the morning. Do not start before March 08, 2022. 30 tablet 3 benazepril (Lotensin) 10 mg tablet Take 1 tablet every day by oral route for 90 days. calcitriol (Rocaltrol) 0.25 mcg capsule 1 (one) time each day at the same time. cyanocobalamin (Vitamin B-12) 1,000 mcg tablet Take 1.25 mcg by mouth every 7 (seven) days. dilTIAZem CD (Cardizem CD) 180 mg 24 hr capsule Take 2 capsules (360 mg) by mouth in the morning. 180 capsule 3 levothyroxine (Synthroid, Levoxyl) 150 mcg tablet Take 150 mcg by mouth every other day. levothyroxine (Synthroid, Levoxyl) 175 mcg tablet every other day. nitroglycerin (Nitrostat) 0.[address] 0.4 mg under the tongue if needed each day. pramipexole (Mirapex) 1 mg tablet Take 2 mg by mouth if needed. [DISCONTINUED] omeprazole (PriLOSEC) [address] capsule Take 20 mg by mouth in the morning. No current facility-administered medications on file prior to visit. Physical Exam: Constitutional: Appearance: Normal appearance. Without apparent distress HENT: Head: Normocephalic and atraumatic. Nose: Nose normal. Mouth/Throat: Mouth: Mucous membranes are moist. Eyes: Extraocular Movements: Extraocular movements intact. Conjunctiva/sclera: Conjunctivae normal. Neck: Vascular: No JVD. Cardiovascular: Rate and Rhythm: Normal rate and regular rhythm. Pulses: Dorsalis pedis pulses are 3 on the right side and 3on the left side. Posterior tibial pulses are 3 on the right side and 3 on the left side. Heart sounds: Normal heart sounds, S1 normal and S2 normal. Pulmonary: Effort: Pulmonary effort is normal. Breath sounds: Normal breath sounds. Abdominal: General: Bowel sounds are normal. Palpations: Abdomen is soft. Musculoskeletal: General: Normal range of motion. Cervical back: Normal range of motion. Right lower leg: No edema. Left lower leg: No edema. Skin: General: Skin is warm and dry. Capillary Refill: Capillary refill takes less than 2 seconds. Neurological: General: No focal deficit present. Mental Status: alert and oriented to person, place, and time. Psychiatric: Mood and Affect: Mood normal. Behavior: Behavior normal. Thought Content: Thought content normal. Judgment: Judgment normal. Labs: He is stable Renal function normal Liver function normal Cholesterol well controlled with cholesterol less than 200 and LDL less than 70 Last lab values have been reviewed CV Testin03/25/22 Left Ventricle: The left ventricle is normal size. Global left ventricular systolic function is normal. EF range is estimated at 50 % -55 %. Left ventricular wall thickness is normal. No regional wall motion abnormality. Right Ventricle: The right ventricle is normal in size. Normal right ventricular systolic function. Left Atrium: The left atrium is normal in size. Left Atrium Appendage: Watchman device was seen in appropriated position in [place]. No evidence of device related thrombosis or peridevice leak by doppler interrogation. Mitral Valve: Mild to moderate mitral regurgitation. Aortic Valve: Mild aortic valve regurgitation. Aorta: Minimal atherosclerotic plaque is seen in the aorta. Conclusion 03/06/22 Watchman implant INDICATION: The patient is a 66 y.o. male with complex prior medical history including Paroxysmal atrial fibrillation, who is maintained on a (more content not included)...[facility]08-03-2023 NoteSend Summary: Discharge Summary Providers: Provider RoleProvider Name Radha Jorge Abraham PrimaryHohman, Jennifer Note Recipients: Radha Burris MD - [id number] [] Discharge: Summary: Admission Date: .21-Nov-2022 05:06:00 Discharge Date: 22-Nov-2022 Admission Reason: Symptomatic hiatal hernia Final Discharge Diagnoses: Laparoscopic repair of hiatal hernia Procedures: Date: 21-Nov-2022 13:15:00 Procedure Name: 1. Laparoscopic repair of Type 3 paraesophageal hernia with Toupet wrap and gastroscopy 2. 3. 4. 5. Hospital Course: Patient is a 67-year-old male with a symptomatic paraesophageal hernia, his symptoms consisted of dysphagia, heartburn, and acid reflux. The surgery went without complication. The patient recovered well and then was admitted to the medicine floor. Patient had no overnight events. He is tolerating a full liquid diet well. His abdominal pain is well-controlled. He has expected tenderness on palpation. Soft diet for 5 days Discharge Information: and Continuing Care: Lab Results - Pending: Surgical Pathology Drawn at 21-Nov-2022 11:54:00 Radiology Results - Pending: None Discharge Instructions: Activity: activity as tolerated. May shower.. May return to school/work. May drive.. Nutrition/Diet: full liquids, full liquid diet for 3 days and soft diet for 5 days. Wound Care: Wound Site: remove glue in 1 wk Follow Up Appointments: Follow-Up Appointment 01: Physician/Dept/Service: Dr. Chen Reason for Referral: Follow up Call to Schedule in: 2 weeks Discharge Medications: See list DNR Status: Code StatusCode Status order at time of discharge: Full Code Electronic Signatures: Sivan Costa (TREATING PLANT OPERATOR-ADMINISTRATIVE DIRECTOR) (Signed 22-Nov-2022 12:13) Authored: Send Summary, Summary Content, Ongoing Care, DNR Status Yossi Chen) (Signed 22-Nov-2022 12:27) Authored: Summary Content, Ongoing Care, Note Completion Last Updated: 22-Nov-2022 12:27 by Yossi Chen)[facility] 11-21-2022 NotePost Operative Note: PreOp Diagnosis: symptomatic hiatal hernia Post-Procedure Diagnosis: same Procedure: 1. Laparoscopic repair of Type 3 paraesophageal hernia with Toupet wrap and gastroscopy 2. 3. 4. 5. Surgeon: April Resident/Fellow/Other Cook Sauce: Adrián/Elio Estimated Blood Loss (mL): none Specimen: yes. hernia sac Findings: Moderate size hiatal hernia with herniated fundus and fat Operative Report Dictated: Dictation: not applicable - note contains Operative Report Operative Report: INDICATIONS FOR PROCEDURE 67 y/o male patient with symptomatic paraesophageal hernia. Symptoms consist of dysphagia, heartburn and acid reflux. The patient underwent esophagram and EGD which confirmed the hernia. Esophageal manometry shows decrease clearance but otherwise normal. I discussed findings with patient and . The patient was consented for laparoscopic hiatal hernia repair with Toupet wrap and EGD. I explained to the patient and the procedure, the risks and complications which include but not limited to bleeding, infection, esophageal injury, gastric injury, vagus nerve injury, vascular injury, injury to surrounding structures, delayed gastric emptying requiring another surgery, dysphagia requiring dilation, excessive flatulence and gas and recurrence. All questions answered and is willing to proceed. DETAILS OF THE PROCEDURE: After informed consent was obtained, the patient was brought into the operating room and placed in the supine position. The huddle and time-out were performed. General anesthesia was obtained without difficulty. He got 5000 units of subQ heparin and 3 G of ancef. He was placed in the modified lithotomy position in Ty's yellowfins. All pressure points were padded and protected. Abdomen was prepped and draped with Chloraprep. A stab incision was made in the left upper quadrant. A Veress needle was placed. Pneumoperitoneum was obtained with CO2 at 15 mmHg. A 5 mm optical trocar was placed in the supra-umbilical region. There was no evidence of iatrogenic injury. 5 mm trocars were placed along the bilateral anterior axillary lines. In the left upper quadrant, a 12 mm trocar was placed. The liver retractor was placed. A moderate size type 3 paraesophageal hernia with over 1/3 of stomach herniated and fat. The patient was placed in reverse Trendelenburg with the left side up. The short gastrics were ligated with the LigaSure starting from the inferior pole of the spleen extending to the left bree of the diaphragm. The hernia sac was dissected away from the diaphragm circumferentially. The retroesophageal window was created. The [place] drain was placed. I proceeded with mediastinal dissection. I continued my dissection allowing for 4-5 cm intraabdominal esophageal length. Both the anterior and posterior vagus nerves were identified and preserved during my dissection. Hernia sac was then resected and removed from the intraabdominal cavity in a specimen bag. C02 decreased to 10 mmhg. The crura were reapproximated with 0 Ethibond sutures using Autosuture device; two sutures placed posteriorly in a figure of eight fashion and another anteriorly ensuring a grasper width space between esophagus and crura. A marking stitch was placed at the fundus which was brought around the esophagus to the right side. A lighted 56-Spanish bougie was placed. The shoeshine maneuver was performed and there was no tension on the fundus. I proceeded to create a 2 to 3 cm Toupet wrap securing the esophagus to the fundus using three 0-ethibond sutures on either side. The wrap was then anchored to the diaphragm at the 6 0'clock position. I then broke scrub and the adult gastroscope was placed in the oral cavity, advanced to the stomach and withdrawn. No mucosal injury. On retroflexion, the wrap was intact. Gastric content and air were then suctioned out. I scrubbed back into the case. The left upper quadrant 12 mm trocar site was reapproximated with #1 Ethibond with a Tony-Ran in a epxfjn-wj-zmkgu fashion. The liver retractor was removed. The CO2 was evacuated. The skin was reapproximated with 4-0 Monocryl in a subcuticular fashion. LiquiBand was placed. The patient was extubated. I spoke to the patient's about the intraoperative findings. All questions were answered. Attestation: Note Completion: Attending AttestationI performed the procedure without a resident Electronic Signatures: Yossi Chen) (Signed 21-Nov-2022 13:27) Authored: Post Operative Note, Note Completion Last Updated: 21-Nov-2022 13:27 by Yossi Chen)[facility] 11-21-2022 History of Present illness [id number] patient who underwent laparoscopic repair of paraesophageal hernia with toupet wrap on November 21. He was doing well until yesterday when he was playing tug-of-war with his dog. Immediately, he started having excruciating pain over the LUQ incision. The coughing with meal has resolved. Hedoes report foods getting hang up in his throat requiring him to cough it up or wash it down withwater. Denies heartburn and acid reflux.[place] [address] DO Work Phone: 1(771) 435-651308-02-2023 History of Present illness Narrative 67-year-old patient who underwent laparoscopic hiatal hernia repair with toupet wrap on November 21. Isaw him on November 29 because of pain in the left upper quadrant incision after playing tag of war with his dog. He was given Toradol/Flexeril and Neurontin. He is here in follow-up. Doing much better. He only has the pain with heavy lifting and straining. Denies acid reflux, heartburn and having less coughing with mealLegacy [facility] [address] DO Work Phone: [phone] 609-573708-02-2023 NoteHistory & Physical Reviewed: I have reviewed the History and Physical dated: 21-Nov-2022 History and Physical reviewed and relevant findings noted. Patient examined to review pertinent physical findings.: No significant changes Home Medications Reviewed: no changes noted Allergies Reviewed: no changes noted ERAS (Enhanced Recovery After Surgery): ERAS Patient: no Consent: COVID-19 Consent: COVID-19 Risk ConsentSurgeon has reviewed umaña risks related to the risk of oli COVID-19 and if they contract COVID-19 what the risks are. Electronic Signatures: Yossi Chen) (Signed 21-Nov-2022 07:15) Authored: History & Physical Reviewed, ERAS, Consent, Note Completion Last Updated: 21-Nov-2022 07:15 by Yossi Chen)[facility] 11-16-2022 Miscellaneous Notes* Telephone Encounter - Jessica Scott - 11/16/2022 5:55 PM EDT Received faxed report of medical records done at . Uploaded via [employer], will be available in [employer] for review shortly. documented in this encounterAden[facility]07-[facility]-2023 Miscellaneous Notes* Telephone Encounter - Sarbjit Richardson APRN.CNP - 10/22/2022 4:33 PM EDT Opened in error Sarbjit Richardson APRN.ADMINISTRATIVE DIRECTOR documented in this encounterAdena Health System06-30-2023 NoteTEE from 04/10/2022 showing watchman implant in good position, no device leak noted and no thrombosisUnMcKitrick Hospital06-30-2023 NoteThis post watchman implantation with CHANTELLE reviewed from 04/10/2022 showed watchman implant in good position with no thrombosis and no device leak Is on aspirin daily and to Tilles him for rate controlUnMcKitrick Hospital06-30-2023 NoteHypertension is well controlled continue current med regimeUnMcKitrick Hospital06-30-2023 NoteCoronary artery disease is stable without concerning symptoms Continue GDMT continue risk factor modifications- heart healthy diet, regular exercise as tolerated and continue all medications.[facility] 10-19-2022 NotePatient here for follow up 6 mo follow up successful Watchman implant in Feb 2022. He had another episode of asphasia this morning. Had labs a few weeks ago. Review of Systems Cardiovascular: Positive for chest pain (with asphasia this morning). Musculoskeletal: Positive for arthritis, back pain, joint pain, myalgias and neck pain. Neurological: Positive for dizziness, headaches and light-headedness. All other systems reviewed and are negative.[facility] 10-19-2022 NoteUTP CARDIOLOGY PROGRESS NOTE HPI: Yoli Antunez Jr. is a 67 y.o. male here for P afib s/p watchman implant HPI Patient presents today for routine follow-up Proximal A-fib status post watchman implant, CAD, hypertension, hyperlipidemia, neurocardiogenic syncope. Currently patient reports typical recurrent chest pain, denies shortness of breath or orthopnea. He admits he had an infusion yesterday for his migraines and this morning he had Weakness and vision changes, With standing and walking out to the barn but he states this happened with his last injection almost the same reaction. Typically he drinks about a gallon of iced tea a day and water Does not like electrolyte replacement drinks. Visit Vitals BP 124/78 (BP Location: Right arm, Patient Position: Sitting) Pulse 76 Ht 1.981 m (6' 6 ) Wt 118 kg (260 lb) SpO2 97% BMI 30.05 kg/m??? Smoking Status Former BSA 2.55 m??? Allergies Allergen Reactions Penicillins Other As a child Tikosyn [Dofetilide] Other aphasia Vancomycin Itching Itching hands/feet Medications: Current Outpatient Medications on File Prior to Visit Medication Sig Dispense Refill aspirin 81 mg chewable tablet Chew 1 tablet (81 mg) in the morning. Do not start before March 08, 2022. 30 tablet 3 benazepril (Lotensin) 10 mg tablet Take 1 tablet every day by oral route for 90 days. calcitriol (Rocaltrol) 0.25 mcg capsule 1 (one) time each day at the same time. cyanocobalamin (Vitamin B-12) 1,000 mcg tablet Take 1.25 mcg by mouth every 7 (seven) days. dilTIAZem CD (Cardizem CD) 180 mg 24 hr capsule Take 2 capsules (360 mg) by mouth in the morning. 180 capsule 3 levothyroxine (Synthroid, Levoxyl) 150 mcg tablet Take 150 mcg by mouth every other day. levothyroxine (Synthroid, Levoxyl) 175 mcg tablet every other day. nitroglycerin (Nitrostat) 0.[address] 0.4 mg under the tongue if needed each day. omeprazole (PriLOSEC) [address] capsule Take 20 mg by mouth in the morning. pramipexole (Mirapex) 1 mg tablet Take 2 mg by mouth. [DISCONTINUED] febuxostat (Uloric) 80 mg tablet Take 80 mg by mouth in the morning. No current facility-administered medications on file prior to visit. Physical Exam: Constitutional: Appearance: Normal appearance. Without apparent distress HENT: Head: Normocephalic and atraumatic. Nose: Nose normal. Mouth/Throat: Mouth: Mucous membranes are moist. Eyes: Extraocular Movements: Extraocular movements intact. Conjunctiva/sclera: Conjunctivae normal. Neck: Vascular: No JVD. Cardiovascular: Rate and Rhythm: Normal rate and regular rhythm. Pulses: Dorsalis pedis pulses are 3 on the right side and 3on the left side. Posterior tibial pulses are 3 on the right side and 3 on the left side. Heart sounds: Normal heart sounds, S1 normal and S2 normal. Pulmonary: Effort: Pulmonary effort is normal. Breath sounds: Normal breath sounds. Abdominal: General: Bowel sounds are normal. Palpations: Abdomen is soft. Musculoskeletal: General: Normal range of motion. Cervical back: Normal range of motion. Right lower leg: No edema. Left lower leg: No edema. Skin: General: Skin is warm and dry. Capillary Refill: Capillary refill takes less than 2 seconds. Neurological: General: No focal deficit present. Mental Status: alert and oriented to person, place, and time. Psychiatric: Mood and Affect: Mood normal. Behavior: Behavior normal. Thought Content: Thought content normal. Judgment: Judgment normal. Labs: He is stable Renal function normal Liver function normal Cholesterol well controlled with cholesterol less than 200 and LDL less than 70 Last lab values have been reviewed CV [facility]03/25/22 Left Ventricle: The left ventricle is normal size. Global left ventricular systolic function is normal. EF range is estimated at 50 % -55 %. Left ventricular wall thickness is normal. No regional wall motion abnormality. Right Ventricle: The right ventricle is normal in size. Normal right ventricular systolic function. Left Atrium: The left atrium is normal in size. Left Atrium Appendage: Watchman device was seen in appropriated position in [place]. No evidence of device related thrombosis or peridevice leak by doppler interrogation. Mitral Valve: Mild to moderate mitral regurgitation. Aortic Valve: Mild aortic valve regurgitation. Aorta: Minimal atherosclerotic plaque is seen in the aorta. Conclusion 03/06/22 Watchman implant INDICATION: The patient is a 66 y.o. male with complex prior medical history including Paroxysmal atrial fibrillation, who is maintained on anticoagulation therapy due to elevated CHADS-VASc score of 5 due to Age, hypertension, vascular disease, thromboembolism. he is not a good candidate for long-term anticoagulation due to recurrent major falls, excessive bruising, inability to maintain therapeutic INR on warfarin, and inabili (more content not included)...[facility]06-29-2023 NoteHNO ID: [id number] Author: Michaela Polo RN Service: ? Author Type: Registered Nurse Type: Progress Notes Filed: 10/18/2022 2:42 PM Note Text: Patient in for IV infusion. Patient rated headache 5/10. Patient stated no nausea and mild dizziness. Patient educated on medications to be administered. Patient verbalized understanding and agreed to proceed with infusions. Pts infusions complete. Pt tolerated infusions well. Pt rated headache 5/10. Pt stated no nausea and mild dizziness. IV removed. Pt discharged from treatment room.[facility]06-29-20[facility] History of Present illness Narrative* Michaela Polo RN - 10/18/2022 1:36 PM EDT Patient in for IV infusion. Patient rated headache 5/10. Patient stated no nausea and mild dizziness. Patient educated on medications to be administered. Patient verbalized understanding and agreed to proceed with infusions. Pts infusions complete. Pt tolerated infusions well. Pt rated headache 5/10. Pt stated no nausea and mild dizziness. IV removed. Pt discharged from treatment room. documented in this encounterAdena Health System06-26-2023 NotePROCEDURE DETAILS Preoperative Diagnosis: Sleep apnea, G47.30 Postoperative Diagnosis: Sleep Apnea Surgeon: Arabella Terry Resident/Fellow/Other Cook Sauce: None of these were associated with this case Procedure: 1. DRUG INDUCED SLEEP ENDOSCOPY Anesthesia: No anesthesiologist associated with this case Estimated Blood Loss: 0 Findings: Collapsible Airway Specimens(s) Collected: no, Operative Report: Mr Antunez is year old with sleep apnea undergoing work-up for treatment options. After all the risks, benefits, and alternatives were discussed with the patient, with risks that are routine for intravenous sedation, patient elects to proceed. Description of Procedure: Patient was taken to the operating room by the anesthesia service, and remained in supine position. Oxymetazoline was used to decongest the upper airway. Patient was sedated with Propofol for the sleep endoscopy. Once effective Propofol sedation was achieved, patient slept comfortably. A flexible endoscope was passed via the nares to evaluate sites of dynamic airway collapse. STRUCTURE OBSTRXNA-P LATERAL CONCENTRIC COMMENTS VELUM 22 OROPHARYNX 0 TONGUE BASE 22 EPIGLOTTIS 11 The most significant finding was a complete collapse of the of tongue and velum in AP fashion. Jaw thrust significantly stabilizes the airway. With these findings patient is a candidate for HNS or MAD. Patient's lowest oxygen desaturation was: 84 %. The patient was then awakened in the operating room with discontinuation of Propofol EBL: None Complications: None Specimen: None Condition: Stable to PACU Attestation: Note Completion: Attending AttestationI performed the procedure without a resident Electronic Signatures: Arabella Terry) (Signed 15-Oct-2022 11:11) Authored: Post-Operative Note, Chart Review, Note Completion Last Updated: 15-Oct-2022 11:11 by Arabella Terry)[facility]06-26-2023 Miscellaneous Notes* Op Note - Arabella Butt MD - 10/15/2022 11:02 AM EDT PROCEDURE DETAILS Preoperative Diagnosis: Sleep apnea, G47.30 Postoperative Diagnosis: Sleep Apnea Surgeon: Arabella Terry Resident/Fellow/Other Cook Sauce: None of these were associated with this case Procedure: 1. DRUG INDUCED SLEEP ENDOSCOPY Anesthesia: No anesthesiologist associated with this case Estimated Blood Loss: 0 Findings: Collapsible Airway Specimens(s) Collected: no, Operative Report: Mr Antunez is year old with sleep apnea undergoing work-up for treatment options. After all the risks, benefits, and alternatives were discussed with the patient, with risks that are routine for intravenous sedation, patient elects to proceed. Description of Procedure: Patient was taken to the operating room by the anesthesia service, and remained in supine position.Oxymetazoline was used to decongest the upper airway. Patient was sedated with Propofol for the sleep endoscopy. Once effective Propofol sedation was achieved, patient slept comfortably. A flexible endoscope was passed via the nares to evaluate sites of dynamic airway collapse. STRUCTURE OBSTRXN A-P LATERAL CONCENTRIC COMMENTS VELUM 2 2 OROPHARYNX 0 TONGUE BASE 2 2 EPIGLOTTIS 1 1 The most significant finding was a complete collapse of the of tongue and velum in AP fashion. Jaw thrust significantly stabilizes the airway. With these findings patient is a candidate for HNS or MAD. Patient's lowest oxygen desaturation was: 84 %. The patient was then awakened in the operating room with discontinuation of Propofol EBL: None Complications: None Specimen: None Condition: Stable to PACU Attestation: Note Completion: Attending Attestation I performed the procedure without a resident Electronic Signatures: Arabella Terry) (Signed 15-Oct-2022 11:11) Authored: Post-Operative Note, Chart Review, Note Completion Last Updated: 15-Oct-2022 11:11 by Arabella Terry) documented in this [facility] Work Phone: 1(618) 510-108506-26-2023 Note* Op Note - Arabella Butt MD - 10/15/2022 11:02 AM EDT PROCEDURE DETAILS Preoperative Diagnosis: Sleep apnea, G47.30 Postoperative Diagnosis: Sleep Apnea Surgeon: Arabella Terry Resident/Fellow/Other Cook Sauce: None of these were associated with this case Procedure: 1. DRUG INDUCED SLEEP ENDOSCOPY Anesthesia: No anesthesiologist associated with this case Estimated Blood Loss: 0 Findings: Collapsible Airway Specimens(s) Collected: no, Operative Report: Mr Antunez is year old with sleep apnea undergoing work-up for treatment options. After all the risks, benefits, and alternatives were discussed with the patient, with risks that are routine for intravenous sedation, patient elects to proceed. Description of Procedure: Patient was taken to the operating room by the anesthesia service, and remained in supine position.Oxymetazoline was used to decongest the upper airway. Patient was sedated with Propofol for the sleep endoscopy. Once effective Propofol sedation was achieved, patient slept comfortably. A flexible endoscope was passed via the nares to evaluate sites of dynamic airway collapse. STRUCTURE OBSTRXN A-P LATERAL CONCENTRIC COMMENTS VELUM 2 2 OROPHARYNX 0 TONGUE BASE 2 2 EPIGLOTTIS 1 1 The most significant finding was a complete collapse of the of tongue and velum in AP fashion. Jaw thrust significantly stabilizes the airway. With these findings patient is a candidate for HNS or MAD. Patient's lowest oxygen desaturation was: 84 %. The patient was then awakened in the operating room with discontinuation of Propofol EBL: None Complications: None Specimen: None Condition: Stable to PACU Attestation: Note Completion: Attending Attestation I performed the procedure without a resident Electronic Signatures: Arabella Terry) (Signed 15-Oct-2022 11:11) Authored: Post-Operative Note, Chart Review, Note Completion Last Updated: 15-Oct-2022 11:11 by Arabella Terry) [facility] Work Phone: 1(397) [phone] Chief complaint Narrative - Reported* An interactive audio and video telecommunication system which permits real time communications between the patient (at the originating site) and provider (at the distant site) was utilized to providethis telehealth service. * Verbal consent was requested and obtained from YOLI ANTUNEZ on this date, 09/25/2022 02:30 PM, for a telehealth visit. * Dysphagia follow-up [facility] Work Phone: 1(748) 184-309005-25-2023 History of Present illness Narrative* 67 year old man with history of intermittnet aphasia (possible autonomic instability), solid and liquid dysphagia referred to me by Dr. Maronian. He is now s/p esophagoscopy and dilation 09/13/22 to 32mm and biopsies. * 09/25/22: * Follow-up after dilation to 32mm. Overall symptoms are similar though thinks the frequency of solidand liquid dysphagia is a little less. Most prominently instead of chest symptoms he is feeling things more in his throat. Seeing neurology at [facility] for his intermittent aphasia. Still awaiting manometry results. * 09/04/22: * Here for follow-up. Esophagram completed 08/10/22 with moderate hiatal hernia, possible inflammatorynarrowing at GEJ, also area of mucosal irregularity for which endoscopy was recommended. He had manometry placed under endoscopy on 08/30/22, overall esophagus appeared normal on their exam with [id number] nodule at GEJ that was biopsied. Pathology pending. * He reports some days swallowing is fine and other days it's hard to get anything down. Carrots and celery hang up high. Some liquid dysphagia that feels like it is hanging up in his chest. He's been paying more attention to how he is chewing and eating. No other diet modifications * He also is having episodes of aphasia. He reports that all of a sudden he will be unable to form words verbally although can write and read. Last occurred after manometry procedure. Has been worked up in the past during these episodes for stroke without findings. Sees a neurologist who thinks it may be autonomic dysfunction, has follow-up next week. No other associated symptoms. * He came off on Plavix and is on a baby aspirin. He reports some issues with anesthesia in the past. * 07/31/22: * He reports about 3 years ago he started having trouble swallowing. He feels like things like liquids and solids are getting hung up in his lower throat/upper chest. Often times he can wash it down but other times he has to cough up food. This occurs about every other meal. Meats are worst but someti mes can occur with water. Getting worse over the past 3 years, episodes more frequent. He does havereflux symptoms, on omeprazole QAM which controls his heartburn. Weight has been steady, would liketo lose 15-20 lbs, no weight loss due to swallowing issues. He reports every several months he has aspiration pneumonia, starts with trouble breathing and then gets xray at [facility] and gets antibiotics.About 2 times in the past year. * He delayed his care over the past two years 2/2 to cardiac arrhythmia issues - afib, has a watchmanand loop implant now. Continues to struggle with SVT. Is currently on plavix - is supposed to be done in a couple of weeks. * He did see neurologist - they continue to be without a diagnostic. His biggest symptoms are headaches, TIA, intermittent aphasia. * PMH/PSH: afib s/p ablations on plavix (due to come off in 2 weeks), thyroidectomy on levothyroxine,ACDF, ADA * ROS performed. All other systems are reviewed and are negative for complaint except as noted in HPI. * Studies: I personally reviewed the studies below with the following interpretation. * EGD for mano placement 08/30/22 - overall esophagus appeared normal on their exam with moderate HH small 3mm nodule at GEJ that was biopsied. * Esophagram 08/10/22 with moderate hiatal hernia, possible inflammatory narrowing at GEJ, also area of mucosal irregularity within HH * MBS 07/18/22 with cervical plate, narrowed UES but no obvious bar/web, eso screen with decreased primary stripping wave and stasis and intraesophageal regurgitation. 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 * MBS September 2019 - reduced base of tongue retraction, poor pharyngeal wall squeeze, poor relaxation ofUES, no change with head turn or chin tuck * esophagram 2018 - slow clearing of the distal esophagus and pill sticking in the vallecula VR-Fogjibftdlmybm-Nbyefjs Work Phone: 1([phone] 963-402605-25-2023 NoteHNO ID: [id number] Author: Sarbjit Richardson APRN.ADMINISTRATIVE DIRECTOR Service: ? Author Type: Nurse Practitioner Type: Progress Notes Filed: 09/13/2022 11:43 AM Note Text: [facility] Virtual Visit Follow up During this COVID-19 pandemic, patient's headache clinic evaluation was scheduled as a virtual visit using the following platform This visit was conducted as a virtual visit, with patient's permission, via .telephone visit It required patient-provider interaction for the medical decision making as documented below. Patient stated name and Patient location [facility] [place] I have communicated my name and active licensure. The patient's identity and physical location were verified at the time of this visit. Either the patient or their legal software support representative has been informed of the risks and benefits of -- and alternatives to -- treatment through a remote evaluation and consents to proceed with the evaluation remotely. September 13, 2022 Chief Complaint: Headache Impression and Plan last visit: 05/31/2022 with me Yoli Antunez is a 67 year old year old male, with a history of multiple medical problems including HTN, A-FIB, CAD, CKD, HTN, hypothyroidism, probable TIAs, GI bleed, AAA, chronic daily headaches with cervicogenic and migraine component, imbalance, and dizziness. His neurological examination is essentially normal at this visit. He reports chronic headaches/migraines of varying intensity with typical migrainous features. He has significant tenderness over the greater occipital region and is agreeable to a greater occipital nerve injection. He also describes Episodes of aphasia and dizziness w/headaches that have been increasing in frequency. He has had multiple workups for stroke. At the end of our visit he told me he was starting to have one of these headaches, he was not speaking and was communicating by writing. Discussed this case with Dr. Diehl during our [facility] education program and will go ahead to look at vessels as I do not see any imaging with MRA/MRV to look for occlusion or narrowing. For migraines we will start him on Vyepti. We can contact his neurologist at home to order and infuse closer to home. ICHD-3 Diagnosis: Chronic Migraine Headache (CM) Aphasia Complex migraine Apply for Vyepti - will discuss about home Neurologist ordering and infusion close to home PLAN: Procedure Note: Greater Occipital Nerve Block Interval Headache History: 07/26/2022 #1 Vyepti 100mg: Reported dizziness and feeling of euphoria and sore throat after infusion. Jackie Banks NP wrote 07/20/2022: [facility] heart [facility] [place] [facility]. Yoli Antunez is a pelasant 67 year old male referred to Dr Shukri Godwin and the Syncope and Autonomic Disorders Clinic in the Heart and Vascular Center at the [facility] for an evaluation of syncope. Hx paroxysmal atrial fibrillation. Undervent a watchman device implant at [facility] 03/06/2022. History of CAD. AAA not increased, monitored. Hx hypertension 10 years. No diabetes. Hx thyroid removal for goiter 2017. Hx TIA for the last 5 years. At least two. Intermittent prolong QT interval on EKG. Loop recorder for atrial fibrillation. Negative findings. Bouts of aphagia which began with the TIA onset. Aphagia monthly. Loss of ability to form words. Eyelid will close (left side) -cant open. Several stroke workups negative. Has seen neurology for the aphagia. Hx of migraines. Last evaluated one month ago by neurology [facility]. Recent MRA MRV. Assessment/Plan The primary encounter diagnosis was Autonomic dysfunction. Diagnoses of Syncope and collapse, Essential hypertension, History of TIA (transient ischemic attack), Paroxysmal atrial fibrillation (CMS/HCC), and Atypical migraine were also pertinent to this visit. Likely a neurocardiogenic type mechanism closely related to migraine pathology. Will try SSRI/ SNRI.We discussed mechanism of action, side effects, desired effects, dosing. To contact us with medication concerns. Consider pyridostigmine. RTC 2-3m Problem List Items Addressed This Visit Since the last visit, the patient states that his headaches have not changed. Cardiology stopped Effexor due dizziness, feeling out of it Pyridostigmine - side effects - diarrhea Headache 1 Onset: - Migraine headache s Location: frontal (occipital vertex) Quality/Description: pressure Associated Symptoms: Photophobia: yes - only with severe headaches (does not kick in often) Phonophobia: no Nausea: no Vomiting: no Other symptoms: neck pain, dizziness and relieved in supine position (left eye droop and aphasia bouts) Worse with activity: yes Number of migraine headache days/month: 30 Migraine Severity: range from 2-6-7/10. Non-migraine Severity: 2-5/10. Duration of headaches with treatment: Dura (more content not included)... [facility]05-23-2023 NoteSubjective Yoli Richelle Antunez Jr. is a 67 y.o. male. I copied and pasted my initial consult note from [facility] date 07/20/2022 for continuity of care: Hx paroxysmal atrial fibrillation. Undervent a watchman device implant at [facility] 03/06/2022. History of CAD. AAA not increased, monitored. Hx hypertension 10 years. No diabetes. Hx thyroid removal for goiter 2018. Hx TIA for the last 5 years. At least two. Intermittent prolong QT interval on EKG. Loop recorder for atrial fibrillation. Negative findings. Bouts of aphagia which began with the TIA onset. Aphagia monthly. Loss of ability to form words. Eyelid will close (left side) -cant open. Several stroke workups negative. Has seen neurology for the aphagia. Hx of migraines. Last evaluated one month ago by neurology [facility]. Recent MRA MRV. HPI: Syncope began about 10 years ago. Triggers: out of the blue or heavy exertion. Most episodes he sits and recovers. Acute dizziness, trouble breathing, chest pounding (not associated with atrial fibrillation). More recently sent for headupright tilt. Reproduced dizziness, lightheaded. Then had aphagia for three hours on tilt. ER visit. Negative. Syncope and aphagia not associated per patient. After episode is weak and tired. No syncope or seizures in the family. Last syncope 6 months ago while walking in kitchen, three steps. Dizzy prior. No nausea or sweating. Hit the floor. LOC few minutes. No seizure activity. No loss of bowel or bladder. Normally episodes occur while upright. Orthostatic blood pressures historically are good, Trouble with swallowing. No constipation. We added venlafaxine, did not tolerate- caused DUMONT Added pyridostigmine but not effective and caused excessive diarrhea. Chief Complaint: BP fluctuations. Pyridostigmine is causing diarrhea. No syncope. Lightheaded with activity. Chest pounding. Left calf pain, last few days.No trauma or travel. Chest pain with rolling over in bed. Since the Watchman. Review of Systems Cardiovascular: Positive for palpitations. Negative for dyspnea on exertion, near-syncope and syncope. Musculoskeletal: Positive for muscle cramps and myalgias. Acute left calf pain. Three days. Neurological: Positive for dizziness, headaches and light-headedness. Objective Cardiovascular: PMI at left midclavicular line. Normal rate. Regular rhythm. Normal S1. Normal S2. Murmurs: There is no murmur. No gallop. No click. No rub. Comments: Homans positive. No redness or excessive swelling to calf. Pulses: Intact distal pulses. Edema: Peripheral edema present. Pretibial: bilateral trace edema of the pretibial area. Ankle: bilateral trace edema of the ankle. Assessment/Plan The primary encounter diagnosis was Autonomic dysfunction. Diagnoses of Syncope and collapse, Essential hypertension, Labile blood glucose, and Pain of left calf were also pertinent to this visit. Problem List Items Addressed This Visit Circulatory Essential hypertension Other Visit Diagnoses Autonomic dysfunction - Primary Syncope and collapse Labile blood glucose Pain of left calf Relevant Orders Vascular US lower extremity venous duplex left (Completed) STAT venous doppler left lower leg negative for DVT, superficial thrombophelbitis. Dx is likely calf strain. See PCP for further management Given article on nOH and supine hypertension, autonomic disturbance. HTN stable on CCB. Reluctant to change due to trouble with BP meds in the past . Fluids, sodium compression, avoid triggers. Thus far no syncope. Has failed pyridostigmine and venlafaxine. He will monitor symptoms. Conservative therapy for now. RTC 3-[address]05-16-2023 History of Present illness Narrative* 67 year old man with history of dysphagia referred to me by Dr. Perrin for swallowing issues. * 09/04/22: * Here for follow-up. Esophagram completed 08/10/22 with moderate hiatal hernia, possible inflammatorynarrowing at GEJ, also area of mucosal irregularity for which endoscopy was recommended. He had manometry placed under endoscopy on 08/30/22, overall esophagus appeared normal on their exam with [id number] nodule at GEJ that was biopsied. Pathology pending. * He reports some days swallowing is fine and other days it's hard to get anything down. Carrots and celery hang up high. Some liquid dysphagia that feels like it is hanging up in his chest. He's been paying more attention to how he is chewing and eating. No other diet modifications * He also is having episodes of aphasia. He reports that all of a sudden he will be unable to form words verbally although can write and read. Last occurred after manometry procedure. Has been worked up in the past during these episodes for stroke without findings. Sees a neurologist who thinks it may be autonomic dysfunction, has follow-up next week. No other associated symptoms. * He came off on Plavix and is on a baby aspirin. He reports some issues with anesthesia in the past. * 07/31/22: * He reports about 3 years ago he started having trouble swallowing. He feels like things like liquids and solids are getting hung up in his lower throat/upper chest. Often times he can wash it down but other times he has to cough up food. This occurs about every other meal. Meats are worst but someti mes can occur with water. Getting worse over the past 3 years, episodes more frequent. He does havereflux symptoms, on omeprazole QAM which controls his heartburn. Weight has been steady, would liketo lose 15-20 lbs, no weight loss due to swallowing issues. He reports every several months he has aspiration pneumonia, starts with trouble breathing and then gets xray at [facility] and gets antibiotics.About 2 times in the past year. * He delayed his care over the past two years 2/2 to cardiac arrhythmia issues - afib, has a watchmanand loop implant now. Continues to struggle with SVT. Is currently on plavix - is supposed to be done in a couple of weeks. * He did see neurologist - they continue to be without a diagnostic. His biggest symptoms are headaches, TIA, intermittent aphasia. * PMH/PSH: afib s/p ablations on plavix (due to come off in 2 weeks), thyroidectomy on levothyroxine,ACDF, ADA * ROS performed. All other systems are reviewed and are negative for complaint except as noted in HPI. * Studies: I personally reviewed the studies below with the following interpretation. * EGD for mano placement 08/30/22 - overall esophagus appeared normal on their exam with moderate HH small 3mm nodule at GEJ that was biopsied. * Esophagram 08/10/22 with moderate hiatal hernia, possible inflammatory narrowing at GEJ, also area of mucosal irregularity within HH * MBS 07/18/22 with cervical plate, narrowed UES but no obvious bar/web, eso screen with decreased primary stripping wave and stasis and intraesophageal regurgitation. 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 * MBS September 2019 - reduced base of tongue retraction, poor pharyngeal wall squeeze, poor relaxation ofUES, no change with head turn or chin tuck * esophagram 2018 - slow clearing of the distal esophagus and pill sticking in the vallecula TC-Tsrboxvirjahjj-Bxakaoq Work Phone: [phone] 700-392605-16-2023 Chief complaint Narrative - Reported* An interactive audio and video telecommunication system which permits real time communications between the patient (at the originating site) and provider (at the distant site) was utilized to providethis telehealth service. * Verbal consent was requested and obtained from YOLI ANTUNEZ on this date, 09/04/2022 11:30 AM, for a telehealth visit. * Dysphagia follow-up PK-Neullrbngkagyn-Mlihvgb Work Phone: [phone] NotePatient Name: Yoli Antunez Procedure Date: 08/30/2022 7:32 AM Date of : 1955 Admit Type: Outpatient Site: [place] Procedure Room 5 Ethnicity: Not or Race: White Attending MD: ELISEO Williamson, [id number] Procedure: Upper GI endoscopy Indications: Dysphagia for 5 years to both liquids and solids Patient Profile: This is a 67 year old male. Refer to note in patient chart for documentation of history and physical. Providers: ELISEO Williamson (Doctor), Jaylen Lo, RN (Nurse), Florentino De Dios, Slip Injector And Applicator, Kristin Mcdaniels RN (Nurse) Referring: Radha Burris MD Provider Care Team: Ruby Daily MD Medicines: Monitored Anesthesia Care Complications: No immediate complications. Procedure: Pre-Anesthesia Assessment: - Prior to the procedure, a History and Physical was performed, and patient medications and allergies were reviewed. The patient is competent. The risks and benefits of the procedure and the sedation options and risks were discussed with the patient. All questions were answered and informed consent was obtained. Patient identification and proposed procedure were verified by the physician, the nurse and the anesthesiologist in the pre-procedure area in the endoscopy suite. Mental Status Examination: alert and oriented. Respiratory Examination: clear to auscultation. CV Examination: regular rate and rhythm. Prophylactic Antibiotics: The patient does not require prophylactic antibiotics. Prior Anticoagulants: The patient has taken Plavix (clopidogrel), last dose was 4 days prior to procedure. After reviewing the risks and benefits, the patient was deemed in satisfactory condition to undergo the procedure. The anesthesia plan was to use monitored anesthesia care (MAC). Immediately prior to administration of medications, the patient was re-assessed for adequacy to receive sedatives. The heart rate, respiratory rate, oxygen saturations, blood pressure, adequacy of pulmonary ventilation, and response to care were monitored throughout the procedure. The physical status of the patient was re-assessed after the procedure. - Prior Aspirin/ NSAID therapy: The patient has taken aspirin, last dose was 1 day prior to procedure. After obtaining informed consent, the endoscope was passed under direct vision. Throughout the procedure, the patient's blood pressure, pulse, and oxygen saturations were monitored continuously. The endoscope was introduced through the mouth, and advanced to the second part of duodenum. The upper GI endoscopy was accomplished without difficulty. The patient tolerated the procedure well. Findings: The examined esophagus was normal. Random biopsies were taken with a cold forceps in the mid esophagus and in the distal esophagus for histology at 29 and 34 cm, respectively. Verification of patient identification for the specimen was done by the nurse and quality control lab technician using the patient's name and medical record number. Estimated blood loss was minimal. A single 3 mm nodule was found at the gastroesophageal junction, 39 cm from the incisors. Biopsies were taken with a cold forceps for histology. Verification of patient identification for the specimen was done by the nurse and quality control lab technician using the patient's name and medical record number. Estimated blood loss was minimal. Esophagogastric landmarks were identified: the gastroesophageal junction was found at 39 cm from the incisors. A 5 cm hiatal hernia was present. Diffuse atrophic mucosa was found in the entire examined stomach. Diffuse moderately erythematous mucosa was found in the gastric body, in the gastric antrum and in the prepyloric region of the stomach. Biopsies were taken with a cold forceps for histology. Verification of patient identification for the specimen was done by the nurse and technici (more content not included)...PROVATION - [id number] Reason for visit Narrative* An interactive audio and video telecommunication system which permits real time communications between the patient (at the originating site) and provider (at the distant site) was utilized to providethis telehealth service. * Verbal consent was requested and obtained from YOLI ANTUNEZ on this date, 08/13/2022 03:15 PM, for a telehealth visit. [facility] [address] [place] Work Phone: [phone] Chief complaint Narrative - Reported* An interactive audio and video telecommunication system which permits real time communications between the patient (at the originating site) and provider (at the distant site) was utilized to providethis telehealth service. * Verbal consent was requested and obtained from YOLI HARMONY on this date, 07/31/2022 12:30 PM, for a telehealth visit. * Swallow WB-Ygitlhmcsoybgs-Fcxzyte Work Phone: [phone] History of Present illness Narrative* 67 year old man with history of dysphagia referred to me by Dr. Perrin for swallowing issues. * 07/31/22: * He reports about 3 years ago he started having trouble swallowing. He feels like things like liquids and solids are getting hung up in his lower throat/upper chest. Often times he can wash it down but other times he has to cough up food. This occurs about every other meal. Meats are worst but someti mes can occur with water. Getting worse over the past 3 years, episodes more frequent. He does havereflux symptoms, on omeprazole QAM which controls his heartburn. Weight has been steady, would liketo lose 15-20 lbs, no weight loss due to swallowing issues. He reports every several months he has aspiration pneumonia, starts with trouble breathing and then gets xray at [facility] and gets antibiotics.About 2 times in the past year. * He delayed his care over the past two years 2/2 to cardiac arrhythmia issues - afib, has a watchmanand loop implant now. Continues to struggle with SVT. Is currently on plavix - is supposed to be done in a couple of weeks. * He did see neurologist - they continue to be without a diagnostic. His biggest symptoms are headaches, TIA, intermittent aphasia. * PMH/PSH: afib s/p ablations on plavix (due to come off in 2 weeks), thyroidectomy on levothyroxine,ACDF, ADA * ROS performed. All other systems are reviewed and are negative for complaint except as noted in HPI. * Studies: I personally reviewed the studies below with the following interpretation. * MBS 07/18/22 with cervical plate, narrowed UES but no obvious bar/web, eso screen with decreased primary stripping wave and stasis and intraesophageal regurgitation. 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 * MBS September 2019 - reduced base of tongue retraction, poor pharyngeal wall squeeze, poor relaxation ofUES, no change with head turn or chin tuck * esophagram 2018 - slow clearing of the distal esophagus and pill sticking in the vallecula KK-Uzipmuzbuumqvi-Yncmpak Work Phone: [phone] 240-340404-10-2023 Miscellaneous Notes* Telephone Encounter - Jonathan Pascual - 07/30/2022 3:40 PM EDT Received call from patient regarding Message Per Patient Local ERs do not understand patients symptoms, would like to know if he can receive response from provider urgently * Telephone Encounter - Jessica Mccoy Pss - 07/30/2022 3:13 PM EDT Patient last seen 05/31/2022, but had infusions 07/26/2022. [facility] NoteHNO ID: [id number] Author: Eleonora Cabral RN Service: ? Author Type: Registered Nurse Type: Progress Notes Filed: 07/26/2022 2:26 PM Note Text: 13:35 Patient admitted to infusion unit and history reviewed, medications and allergies updated. Patient has 3/10 headache and no nausea, no dizziness at this time. Patient has first Vyepti infusion of 100 mg. 1424 Patinet discharged no problems with infusion , instructed on 45 day follow-up.[facility]04-06-2023 History of Present illness Narrative* Eleonora Cabral RN - 07/26/2022 1:52 PM EDT 13:35 Patient admitted to infusion unit and history reviewed, medications and allergies updated. Patient has 3/10 headache and no nausea, no dizziness at this time. Patient has first Vyepti infusion of 100 mg. 1424 Patinet discharged no problems with infusion , instructed on 45 day follow-up. documented in this encounter[facility]04-[facility]-2023 Miscellaneous Notes* Telephone Encounter - Fadumo Mckenzie - 07/23/2022 11:46 AM EDT Patient last seen on 05/31/22. Asked to follow up with Infusions. documented in this encounterA[facility]03-31-2023 Anibal Antunez is a pelasant 67 year old male referred to Dr Shukri Godwin and the Syncope and Autonomic Disorders Clinic in the Heart and Vascular Center at the [facility] for an evaluation of syncope. Hx paroxysmal atrial fibrillation. Undervent a watchman device implant at [facility] 03/06/2022. History of CAD. AAA not increased, monitored. Hx hypertension 10 years. No diabetes. Hx thyroid removal for goiter 2017. Hx TIA for the last 5 years. At least two. Intermittent prolong QT interval on EKG. Loop recorder for atrial fibrillation. Negative findings. Bouts of aphagia which began with the TIA onset. Aphagia monthly. Loss of ability to form words. Eyelid will close (left side) -cant open. Several stroke workups negative. Has seen neurology for the aphagia. Hx of migraines. Last evaluated one month ago by neurology [facility]. Recent MRA MRV. HPI: Syncope began about 10 years ago. Triggers: out of the blue or heavy exertion. Most episodes he sits and recovers. Acute dizziness, trouble breathing, chest pounding (not associated with atrial fibrillation). More recently sent for headupright tilt. Reproduced dizziness, lightheaded. Then had aphagia for three hours on tilt. ER visit. Negative. Syncope and aphagia not associated per patient. After episode is weak and tired. No syncope or seizures in the family. Last syncope 6 months ago while walking in kitchen, three steps. Dizzy prior. No nausea or sweating. Hit the floor. LOC few minutes. No seizure activity. No loss of bowel or bladder. Normally episodes occur while upright. Orthostatic blood pressures historically are good, Trouble with swallowing. No constipation. Chief Complaint: Syncope Review of Systems Cardiovascular: Positive for near-syncope, palpitations and syncope. Negative for leg swelling. Neurological: Positive for dizziness, headaches and light-headedness. Aphagia episodes Objective Vitals reviewed. Constitutional: Appearance: Healthy appearance. Not in distress. HENT: Comments: Voice raspy Neck: Vascular: No JVR. JVD normal. Pulmonary: Effort: Pulmonary effort is normal. Breath sounds: Normal breath sounds. No wheezing. No rhonchi. No rales. Chest: Chest wall: Not tender to palpatation. Cardiovascular: PMI at left midclavicular line. Normal rate. Regular rhythm. Normal S1. Normal S2. Murmurs: There is no murmur. No gallop. No click. No rub. Pulses: Intact distal pulses. Edema: Peripheral edema absent. Abdominal: General: Bowel sounds are normal. Palpations: Abdomen is soft. Tenderness: There is no abdominal tenderness. Musculoskeletal: Normal range of motion. General: No tenderness. Skin: General: Skin is warm and dry. Neurological: General: No focal deficit present. Mental Status: Alert and oriented to person, place and time. Assessment/Plan The primary encounter diagnosis was Autonomic dysfunction. Diagnoses of Syncope and collapse, Essential hypertension, History of TIA (transient ischemic attack), Paroxysmal atrial fibrillation (CMS/HCC), and Atypical migraine were also pertinent to this visit. Likely a neurocardiogenic type mechanism closely related to migraine pathology. Will try SSRI/ SNRI.We discussed mechanism of action, side effects, desired effects, dosing. To contact us with medication concerns. Consider pyridostigmine. RTC 2-3m Problem List Items Addressed This Visit Circulatory Essential hypertension Paroxysmal atrial fibrillation (CMS/HCC) Other History of TIA (transient ischemic attack) Atypical migraine Relevant Medications venlafaxine XR (Effexor-XR) 37.5 mg 24 hr capsule Other Visit Diagnoses Autonomic dysfunction - Primary Syncope and collapse Relevant Medications venlafaxine XR (Effexor-XR) 37.5 [facility] Miscellaneous Notes* Telephone Encounter - Sarbjit Richardson APRN.[facility] - 07/13/2022 4:04 PM EDT There are no results in Epic from [facility] in imaging. When did he have them done? Can they fax the results and send the disc. Sarbjit documented in this encounterA[facility]-13[facility]23 Miscellaneous Notes* Telephone Encounter - Sarbjit Richardson APRN.CNP - 06/04/2022 12:48 PM EST Orders for MRA/MRV to be mailed to patient. Sarbjit Richardson APRN.CNP documented in this encounterAdena Health System02-09-2023 NoteHNO ID: [id number] Author: Sarbjit Richardson APRN.CNP Service: ? Author Type: Nurse Practitioner Type: Progress Notes Filed: 05/31/2022 4:52 PM Note Text: [facility] Follow up visit May 31, 2022 Chief Complaint: Dizziness Impression and Plan last visit: 06/29/2021 with Aydee Can CNP Yoli Anutnez is a 66 year old year old male, with a history of multiple medical problems including HTN, A-FIB, CAD, CKD, HTN, hypothyroidism, TIAs, GI bleed, AAA, chronic daily headaches with cervicogenic and migraine component, imbalance, and dizziness presenting today with minimal improvement in cervical ROM but new symptoms including left eye drooping with aphasia that started in the last 1 month that can proceed dizziness. I discussed this case with my collaborating physician, Suleman Sommers MD, who agrees patient should be evaluated by epilepsy to rule out seizure as TIA workup recently has been unrevealing and negative. I sent patient a [employer] message with this information and we can try [facility] to see if this is migrainous as recommended by Dr. Sommers. Diagnosis: Tia (transient ischemic attack) (primary encounter diagnosis) Involuntary eye movements Aphasia Peripheral vertigo, unspecified laterality Chronic daily headache Intractable chronic migraine without aura and without status migrainosus Neck pain Imbalance PLAN: Consult to Epilepsy Interval Headache History: 05/23/2022 ED visit TIA: 67 yo man for whom neurology was consulted for aphasia. Patient w/ pmh HTN, A-FIB, CAD, CKD, HTN, hypothyroidism, TIAs, GI bleed, AAA, chronic daily headaches with cervicogenic and migraine component, imbalance, and dizziness. He was getting tilt-table test today, and 3 minutes into testing developed brief chest pain and aphasia. reports he has been getting episodes of aphasia (30 min-6 hrs) w/ headaches every few weeks, for past several years. She reports he has had multiple stroke work-ups, last 2020. Patient endorses current headache, denies anxiety, denies any other neurological sx other than aphasia. He was seen at [facility] for this previously (2020 note, migraine), and follows w/ Neurologist Dr. Wolff in [place]. His exam is entirely benign except he wasn't speaking (though able to say numbers). NIHSS1. No drift, plantars down going. Labs largely benign. CTH wnl. Impression: Possible complex migraine w/ aphasia. Patient reports this occurs every few weeks w/ headache, and follows w/ Neurologist. He is able to speak for myself (say numbers), no other focal neurological deficits at all, appears to be improving. Plan: -Can continue to monitor. Patient and cautioned on acute stroke sx, and reported to call EMS/present if any other new acute neurological sx or if his aphasia does not resolve (he is able to speak currently) -Continue to follow w/ outpatient Neurologist -No further reccs from acute neurological stand point, Neurology will sign-off. Please page w/ additional questions or concerns. . Dizziness: - A fib under control after 3rd ablation and has a Watchman filter - occurs with migraine - Triggers: exertion on workload, possibly head turns (working with PT and has had significant improvement but still having dizziness) - daily (3 times per day depending on activity) - alleviated by sitting down - if he catches it will last about 30 minutes, if he does not catch it fast enough took about 3 hours to resolve He reports getting worse and worse with dizziness, headaches and aphasia. Headache precedes the aphasia - different type of headache - pain is different at the vertex- pressure- not associated with migrainous features except dizziness. He has had 2 in the last 3 weeks. Prior to this they were once a year. Migraines- vertex wider spread- stabbing - migraine everyday Chest tightness and typical migrainous features Migraine today 09/29 and feels it escalating Headache 1 Onset: - Migraine headache s Location: frontal (occipital vertex) Associated Symptoms: Photophobia: yes - only with severe headaches (does not kick in often) Phonophobia: no Nausea: no Vomiting: no Other symptoms: neck pain, dizziness and relieved in supine position Worse with activity: yes Number of migraine headache days/month: 30 Migraine Severity: range from 3- 8. Number of NON-migraine headache days/month: 30 Non-migraine Severity: 2-5. Number of headache free days/month: -30 Duration of headaches with treatment: Duration of attacks with treatment: lasts for several hours - then recur later. Current preventive treatment: none Current abortive treatment: lays down if he can Triggers: fasting/hunger (exertion related) Onset of headache to peak: varies Relieving factors: lying down and quiet Most common time of day for headache to begin: anytime Days missed from work or school in t (more content not included)...[facility]02-09-2023 Instructions* Patient Instructions* Sarbjit Richardson APRN.[facility] - 05/31/2022 9:01 AM EST Greater Occipital Nerve Block Article in [place] [employer] Journal By: Bhavesh Boyd MD Many patients with chronic headache report that their pain typically arises from the neck or, more specifically, the base of the skull. Often that pain arises on one side or the other and extends forward to involve the top of the head, the mormonism, the forehead, the eye or some combination thereof. These are termed cervicogenic (ie, born of the neck ) headaches. Residing in those areas of the skull base are the occipital nerves. Irritation/inflammation of those nerves may cause a specific type of neuralgiform pain: occipital neuralgia. More commonly, however, those nerves serve as major on-ramps to the superhighway upon which travel the pain signals that produce migraine and other types of headache. If one can block traffic on these busy on-ramps, then it may be possible to halt the flow of pain signal on the superhighway and thus--at least temporarily--halt head pain. Such is the logic of occipital nerve blocks (ONBs) for suppression of chronic headache. The blocks themselves are relatively simple to perform. Your physician will use a small needle to inject a solution into the area around the nerves; the composition of that solution differs according to physician experience and preference but most often contains a long-acting local anesthetic and a steroid anti-inflammatory drug. Insertion of the needle is not especially painful, but infusion of the solutionmay cause temporary discomfort. Pain relief can occur with startling rapidity, frequently within 15 minutes of the block(s). For those who experience relief, the duration of the therapeutic response varies widely: a day or so up toweeks... even months. When the procedure is performed by an experienced healthcare provider, complications of ONBs are quite rare. Because these are sensory nerves, you may experience some temporary numbness over the regions supplied by the nerves. Because the local anesthetic may diffuse into areas close to the lower brain stem and upper spinal cord, transient (hours at most) difficulty speaking or swallowing have been reported. And, as with all steroid therapy, caution should be taken to minimize the amount of steroid injected over any given period of time. Occipital nerve blocks are not for everyone, but for selected patients they can prove a more effective means of suppressing chronic headache than any oral medication. Frequently asked questions: 1. How long will it take? Typically no more than a minute or two; the procedure usually is performed in a regular examinationroom and does not require any preparation on the patient s part. 2. Can I resume my activities afterwards? Absolutely; you should have no problem driving afterwards and may carry on with your day as you would otherwise. 3. If I gain significant but only very brief relief, should I have the procedure repeated? Unfortunately, your HCP cannot predict with confidence whether a given ONB will be effective or--ifeffective--how long the benefit will last. If your treatment response is dramatically positive but short-lived, it probably makes sense to give it at least one more try. https://americanheadachesociety.org/wp-content/uploads//Ngviymjyf-Bvewp-O locks_Aug-2009.pdf documented in this encounterAdena Health System02-09-2023 History of Present illness Narrative* Sarbjit Richardson APRN.ADMINISTRATIVE DIRECTOR - 05/31/2022 8:00 AM EST [facility] Follow up visit May 31, 2022 Chief Complaint: Dizziness Impression and Plan last visit: 06/29/2021 with Aydee Can CNP Yoli Antunez is a 66 year old year old male, with a history of multiple medical problems including HTN, A-FIB, CAD, CKD, HTN, hypothyroidism, TIAs, GI bleed, AAA, chronic daily headaches with cervicogenic and migraine component, imbalance, and dizziness presenting today with minimal improvement in cervical ROM but new symptoms including left eye drooping with aphasia that started in the last 1 month that can proceed dizziness. I discussed this case with my collaborating physician, Suleman Sommers MD, who agrees patient should be evaluated by epilepsy to rule out seizure as TIA workup recently has been unrevealing and negative. I sent patient a [employer] message with this information and we can try [facility] to see if this is migrainous as recommended by Dr. Sommers. Diagnosis: Tia (transient ischemic attack) (primary encounter diagnosis) Involuntary eye movements Aphasia Peripheral vertigo, unspecified laterality Chronic daily headache Intractable chronic migraine without aura and without status migrainosus Neck pain Imbalance PLAN: Consult to Epilepsy Interval Headache History: 05/23/2022 ED visit TIA: 67 yo man for whom neurology was consulted for aphasia. Patient w/ pmh HTN, A- FIB, CAD, CKD, HTN, hypothyroidism, TIAs, GI bleed, AAA, chronic daily headaches with cervicogenic and migraine component, imbalance, and dizziness. He was getting tilt-table test today, and 3 minutes into testing developed brief chest pain and aphasia. reports he has been getting episodes of aphasia (30 min-6 hrs)w/ headaches every few weeks, for past several years. She reports he has had multiple stroke work-ups, last 2020. Patient endorses current headache, denies anxiety, denies any other neurological sx other than aphasia. He was seen at [facility] for this previously (2020 note, migraine), and follows w/ Neurologist Dr. Bej in [place]. His exam is entirely benign except he wasn't speaking (though able to say numbers). NIHSS1. No drift, plantars down going. Labs largely benign. CTH wnl. Impression: Possible complex migraine w/ aphasia. Patient reports this occurs every few weeks w/ headache, and follows w/ Neurologist. He is able to speak for myself (say numbers), no other focal neurological deficits at all, appears to be improving. Plan: -Can continue to monitor. Patient and cautioned on acute stroke sx, and reported to call EMS/present if any other new acute neurological sx or if his aphasia does not resolve (he is able to speak currently) -Continue to follow w/ outpatient Neurologist -No further reccs from acute neurological stand point, Neurology will sign-off. Please page w/ additional questions or concerns. . Dizziness: - A fib under control after 3rd ablation and has a Watchman filter - occurs with migraine - Triggers: exertion on workload, possibly head turns (working with PT and has had significant improvement but still having dizziness) - daily (3 times per day depending on activity) - alleviated by sitting down - if he catches it will last about 30 minutes, if he does not catch it fast enough took about 3 hours to resolve He reports getting worse and worse with dizziness, headaches and aphasia. Headache precedes the aphasia - different type of headache - pain is different at the vertex- pressure- not associated with migrainous features except dizziness. He has had 2 in the last 3 weeks. Prior to this they were once a year. Migraines- vertex wider spread- stabbing - migraine everyday Chest tightness and typical migrainous features Migraine today 09/29 and feels it escalating Headache 1 Onset: - Migraine headache s Location: frontal (occipital vertex) Associated Symptoms: Photophobia: yes - only with severe headaches (does not kick in often) Phonophobia: no Nausea: no Vomiting: no Other symptoms: neck pain, dizziness and relieved in supine position Worse with activity: yes Number of migraine headache days/month: 30 Migraine Severity: range from 3- 8/10. Number of NON-migraine headache days/month: 30 Non-migraine Severity: 2-5/10. Number of headache free days/month: -30 Duration of headaches with treatment: Duration of attacks with treatment: lasts for several hours -then recur later. Current preventive treatment: none Current abortive treatment: lays down if he can Triggers: fasting/hunger (exertion related) Onset of headache to peak: varies Relieving factors: lying down and quiet Most common time of day for headache to begin: anytime Days missed from work or school in the last month: 0 days Headache status since the last visit: worse: Preventative: none Abortive: none Medications effective? 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 New Family History: No Prior Therapies Duration of Use Dose Reason for Discontinuation Other Therapies Physical therapy Analgesic Diclofenac (Voltaren, Cataflam, Cambia) Indomethacin (Indocin) Ketorolac (Toradol) Tramadol (Ultram) Anti-Convulsant Gabapentin (Neurontin) diarrhea Lamotrigine (Lamictal) Pregabalin (Lyrica) Topiramate (Topamax, Trokendi XL, Qudexy) Anti-Depressant and Antipsychotic Amitriptyline (Elavil) Bupropion (Wellbutrin) Duloxetine (Cymbalta) Nortriptyline (Pamelor, Aventyl) Paroxetine (Paxil) Antiemetics Metoclopramide Ondansetron Anti-Migraine cannot use- CAD and TIA Blood Pressure Amlodipine Diltiazem (Cardizem) Metoprolol (Lopressor,Toprol XL) Nifedipine (Procardia) MABs Erenumab (Aimovig) not effective GEPANTS Ubrogepant (Ubrelvy) not effective Rimegepant (Nurtec) not effective Botulinum Toxin Onabotulinum Toxin A (Botox) Muscle Relaxer Chlorzoxazone (Parafon Forte) Orphenadrine (Norflex, Norgesic forte) Tizanidine (Zanaflex) Other Medications Prednisone Over the Counter Medications Aspirin cannot take alot Current Outpatient Medications Medication Sig ranolazine ER (RANEXA) 500 mg 12 hr tablet Take 500 mg by mouth. ubrogepant (UBRELVY) 100 mg tablet Take 0.5-1 tablets by mouth as needed (migraine). Can repeat dose in 2 hours. No more than 200 mg per day. omeprazole (PRILOSEC) 20 mg capsule Take 40 mg by mouth. nitroglycerin sublingual (NITROQUICK) 0.4 mg SL tablet Dissolve 0.4 mg under the tongue every 5 minutes as needed. levothyroxine (LEVOXYL) 175 mcg tablet Take 1 tablet by mouth daily before breakfast. pramipexole (MIRAPEX) 1 mg tablet Take 2 mg by mouth daily at bedtime. apixaban (ELIQUIS) 5 mg tab(s) Take 5 mg by mouth twice daily. febuxostat (ULORIC) 40 mg tab Take 40 mg by mouth once daily. amLODIPine-benazepril (LOTREL) 5-10 mg per capsule Take 1 capsule by mouth once daily. No current facility-administered medications for this visit. PAST MEDICAL HISTORY Diagnosis Date AAA (abdominal aortic aneurysm) without rupture ([facility]) Arthritis Atrial fibrillation/flutter CAD (coronary artery disease) CKD (chronic kidney disease) stage 3, GFR 30-59 ml/min ([facility]) Ex-smoker Gastric ulcer GERD (gastroesophageal reflux disease) Gout History of GI bleed HLD (hyperlipidemia) Hypertension 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 ADA treated with BiPAP Peripheral neuropathy Restless leg syndrome TIA (transient ischemic attack) x 2 ALLERGIES Allergen Reactions Penicillins Unknown CT brain 05/23/2022 Impression *Negative noncontrast CT of the brain. FINDINGS: No intracranial blood products, mass or midline shift. Cerebral volume is age compatible. The ventricular and cisternal configuration is symmetric. No indication of hydrocephalus. Lind-white matter differentiation is preserved. No large regions of low-attenuation or sulcal effacement. Paranasal sinuses, mastoids and middle ear structures appear normally aerated. MRI Brain 12/15/2020 IMPRESSION: No acute intracranial findings. Mild sequela of chronic microvascular ischemia. RESULT: Acute Change: There is no evidence of restricted diffusion to suggest an acute infarct. Hemorrhage: No evidence of prior parenchymal hemorrhage on the SWI. Mass Lesion/ Mass Effect: No evidence of an intracranial mass or extra-axial fluid collection. No significant mass effect. Chronic Change: Scattered punctate foci of increased T2 and FLAIR signal are noted in the supratentorial white matter which is a nonspecific finding, but likely represents minimal chronic microvascular ischemia. Parenchyma: No significant volume loss for age. The brain parenchyma is otherwise within normal limits of signal intensity and morphology. Ventricles: Normal caliber and morphology. Skull Base: Hypothalamic and pituitary region are grossly normal. Craniocervical junction is normal. No significant marrow replacement process. Vasculature: Major intracranial arterial structures, and dural venous sinuses show typical flow void, suggesting patency by spin echo criteria. Other: The visualized paranasal sinuses and mastoid air cells are clear. The orbits and extracranial soft tissues are unremarkable. CT brain: 12/14/2020 IMPRESSION: No CT evidence of acute large territory infarction or intracranial hemorrhage RESULT: Acute ischemic change: None. ASPECT Score = 10 Hemorrhage: No evidence of acute intracranial hemorrhage. ECASS hemorrhagic transformation score: Not Applicable Mass Lesion / Mass Effect: There is no evidence of an intracranial mass or extraaxial fluid collection. No significant mass effect. Chronic change: Carotid siphon calcifications are noted. Incidental mild prominence LEFT basal ganglia perivascular space prominence. Incidental/developmental mild retrocerebellar CSF prominence communicating with the fourth ventricle. None otherwise apparent in this modality. Parenchyma: There is no significant volume loss. The brain parenchyma is otherwise within normal limits for age. Ventricles: Normal caliber and morphology. Other: The partially imaged paranasal sinuses show scattered areas of mild mucosal thickening, mostly in the ethmoid sinuses. Left-sided ocular lens replacement and scleral buckle changes. Skull base osteopenia, and partially imaged atlantoaxial arthritic changes. Math And Physics Instructor (topogram) images: No additional findings. HEADACHE SCORES: Headache Questions 06/22/2021 06/26/2021 ER visits since last office visit: - 0 Hospital stays since last office visit - 0 Limited ADLs in the last month: 28 - Days missed from work or school in the last month: 0 20 Days headache pain free in the last month: 0 - Days per month with ALL of the following symptoms - decreased productivity, light sensitivity and nausea: 0 - Initial improvement of headache after botox injection at last visit: Not applicable, I did not havea botox injection at my last visit - PRN medication usage in the last month: 10 - Patient impression of improvement since last visit: Not applicable, this is my first visit Not applicable, this is my first visit HIT-6 06/22/2021 05/28/2022 HIT-6 68 (Severe impact) 65 (Severe impact) APRYL - 2/7 SCORES 06/22/2021 05/28/2022 APRYL-2 Score 1 0 Migraine Specific QOL - Higher scores indicate better HRQL 05/28/2022 Role Function-Restrictive Transformed Score (range: 0-100) 54.29 Role Function-Preventive Transformed Score (range: 0-100) 65 Emotional Function Transformed Score (range: 0-100) 46.67 PHQ-9 05/17/2021 06/22/2021 05/28/2022 Score 12 8 10 Review of Systems: Review of system: unchanged from the previous visit (sleep patterns, mood, energy, appetite, stress, exercising). 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 CV: RRR Musculoskeletal: No gross joint deformities. , Tenderness to palpation of cervical spine and upper trapezius: No., Suboccipital tenderness: Yes right. , Trigger Points: none , Cervical ROM: Decreasedrotation, R>L. , Pain on palpation of exit point of the right occipital n through semispinalis danyelle at exit point of JULIAN and KARTHIK posterior to the SCM just below the angle of the jaw Neurological: Mental Status: Alert and oriented to person, place and time. Affect is normal and appropriate. Speech is spontaneous and fluent without dysarthria, normal in rate, volume and articulation, and clear,coherent, and relevant. Short and fpc memory, cognition and general fund of knowledge are good. Attention span and concentration are excellent. Cranial Nerves: II-Visual fernandez are full. . III, IV, - extraocular muscles intact bilaterally, PERRL, nystagmus absent, V-normal facial sensation to light touch. VII-face is symmetric without evidence of weakness. VIII-hearing intact. IX, X-palate elevates symmetrically. XI-SCM 5/5 with shoulder shrug. XII-tongue protrudes midline with normal movements. No atrophy or fasciculations of the tongue. Motor: Normal muscle tone and bulk. No evidence of atrophy or fasciculations. Strength is normal, 5/5. and Drift is absent Sensation: normal light touch in the upper and lower extremities. Cerebellar: No ataxia. Tremor: absent. Normal finger to nose. . Gait examination is normal. IMPRESSION: Yoli Antunez is a 67 year old year old male, with a history of multiple medical problems including HTN, A-FIB, CAD, CKD, HTN, hypothyroidism, probable TIAs, GI bleed, AAA, chronic daily headaches with cervicogenic and migraine component, imbalance, and dizziness. His neurological examination is essentially normal at this visit. He reports chronic headaches/migraines of varying intensity with typical migrainous features. He has significant tenderness over the greater occipital region and is agreeable to a greater occipital nerve injection. He also describes Episodes of aphasia and dizziness w/headaches that have been increasing in frequency. He has had multiple workups for stroke. At the end of our visit he told me he was starting to have one of these headaches, he was not speaking and was communicating by writing. Discussed this case with Dr. Diehl during our AQUILES education program and will go ahead to look at vessels as I do not see any imaging with MRA/MRV to look for occlusion or narrowing. For migraines we will start him on Vyepti. We can contact his neurologist at home to order and infuse closer to home. ICHD-3 Diagnosis: Chronic Migraine Headache (CM) Aphasia Complex migraine We will get a precert for Calcitonin Gene Related Peptide Monoclonal Antibody, Eptinezumab. This patient meets AHS criteria for treatment with CGRP MAB, He has Chronic Migraine Headache (CM), ChronicMigraine without aura, without mention of intractable migraine without mention of status migrainosus which occurs at least 15 days per month for at least 4 hours per day. The FDA has approved CGRP MAB for prevention of migraine. Specifically, the patient has 30 migraines per month, lasting 4 or more hours/d associated with photophobia, neck pain, dizziness for three or more months. Medication overuse headache has been ruled out. Patient is not currently taking a Gepant for acute treatment of his migraine. The following preventative medications have been tried for 3 or more months without benefit or discontinued due and/or side effects. Anti-Convulsant Gabapentin (Neurontin) diarrhea Lamotrigine (Lamictal) Pregabalin (Lyrica) Topiramate (Topamax, Trokendi XL, Qudexy) Anti-Depressant and Antipsychotic Amitriptyline (Elavil) Bupropion (Wellbutrin) Duloxetine (Cymbalta) Nortriptyline (Pamelor, Aventyl) Paroxetine (Paxil) Blood Pressure Amlodipine Diltiazem (Cardizem) Metoprolol (Lopressor,Toprol XL) Nifedipine (Procardia) MABs Erenumab (Aimovig) not effective Botulinum Toxin Onabotulinum Toxin A (Botox) The following abortive medications have been tried but require high frequency use which can lead toMedication Overuse Headache: Analgesic Diclofenac (Voltaren, Cataflam, Cambia) Indomethacin (Indocin) Ketorolac (Toradol) Tramadol (Ultram) Anti-Migraine cannot use- CAD and TIA GEPANTS Ubrogepant (Ubrelvy) not effective Rimegepant (Nurtec) not effective Over the Counter Medications Aspirin cannot take alot PLAN: Procedure Note: Greater Occipital Nerve Block UNIVERSAL PROTOCOL / SAFETY CHECKLIST Procedure to be Performed: Greater occipital nerve injection Sign In: A Moment of CARE was completed. Personnel directly involved with the procedure wore the appropriate PPE (Personal Protective Equipment). No special equipment needed. Patient/Surrogate Stated/Verified: PATIENT VERIFIED(optional for EMERGENT procedures): Patient name, Date of , Relevant allergies, and The intended procedure Time Out Communication: Intended patient and procedure match the source documents. Consent documented and matches the intended procedure. Correct side/site marked and visible. Medications required for procedure verified. Sign Out: SIGN OUT (optional for EMERGENT procedures): Post-procedure follow-up management communicated and Plan of Care Visit completed when applicable. Sarbjit Richardson APRN.ADMINISTRATIVE DIRECTOR The risks, benefits and anticipated outcomes of the procedure, the risks and benefits of the alternatives to the procedure, and the roles and tasks of the personnel to be involved, were discussed with the patient, and the patient consents to the procedure and agrees to proceed. Informed consent signed. 2 cc 0.5% Ropivacaine and 6 mg Celestone were injected into the right greater occipital nerves The occipital nerve(s) was injected 3cm caudal and 1.5 cm lateral to the inion where the main trunkof the occipital nerve penetrates the semispinalis muscle. The needle was placed perpendicular and the needle advanced 1.5 cm. After aspiration to ensure no obstruction or presence of blood, the areawas injected. The needle was repositioned in a fan-like manner and the entire area was injected. Pressure was held and no hematoma was noted. The patient was told to use heat or cold if there was discomfort later in the day Pre injection pain 8/10 Post injection pain 2/10 Patient tolerated the procedure well. Apply for Vyepti - will discuss about home Neurologist ordering and infusion close to home Headaches can be associated with systemic abnormalities; we will check the following: Labs: Comp Metabolic Panel The following imaging studies should be performed to evaluate for secondary causes: Imaging: MRA BRAIN WO IVCON Comments: MRA head and neck - episodes of aphasia MRV BRAIN WO IVCON Comments: Episodes of aphasia and headache HEADACHE MANAGEMENT: (You are the primary guardian of your health and headache. Keep track of all medications: This includes the reason for use, side effects and benefits.) MEDICATION TREATMENT: Medications to Start Taking None Headache education was done. Discussed lifestyle modification including increased oral hydration, decreased caffeine, exercise and stress management. Discussed treatment options including preventive and acute medications, natural supplements, and infusion therapy. Discussed medication overuse headache and to limit use of acute treatments to no more than 2 days/week or 10 days/month. Discussed medication side effects, adverse reactions and drug interactions. Written educational materials and patient instructions outlining all of the above were given. RESEARCH: None at this time Follow-up: for IV infusion . Level of service: Est level 5 (40-54 min). Time spent 54 min on the day of service, which included preparing to see the patient, [id number] patient care, completing clinical documentation, obtaining and/or reviewing separately obtained history, performing a medically appropriate examination, counseling and educating the patient/family/caregiver, and ordering medications, tests, or procedures. Sarbjit Richardson APRN.NEETU Headache Section [facility] May 31, 2022 [facility] [facility]ation Note Chief Complaint and reason for Consultation: Aphasia Interval History: Yoli Antunez Jr. is a 67 y.o. year old male patient for whom Neurology was consulted for chief complaint of aphasia. History obtained from patient, , and chart review. Patient w. P[facility] HTN, A-FIB, CAD, CKD, HTN, hypothyroidism, TIAs, GI bleed, AAA, chronic daily headaches with cervicogenic and migraine component, imbalance, and dizziness. He was getting tilt-table test today, and 3 minutes into testing developed brief chest pain and aphasia. reports he has been getting episodes of aphasia w/ headaches every few weeks, for past several years. She reports he has had multiple stroke work-ups, last 2020. He gets aphasia w/ headaches. Patient endorses current headache, denies anxiety, denies any other neurological sx other than aphasia. He reports this lasts 30 minutes up to 6 hrs at a time. Currently has been ongoing for 5 hrs, but he is able to speak (say numbers w/ visual testing, say yes or no). [facility], aphasia in the past (see care everywhere note). Patient and deny any weakness, no word finding difficulty (just cannot get words out, but now is able to), no facial droop. He follows w/ Neurologist Dr. Wolff in [place]. His examination as per below. Patient History []Expand by Default Medical History[]Expand by Default Past Medical History: Diagnosis Date Atrial fibrillation (CMS/HCC) Chronic kidney disease stage 3 b Coronary artery disease Hypertension Pancreatitis, gallstone TIA (transient ischemic attack) Surgical History[]Expand by Default Past Surgical History: Procedure Laterality Date APPENDECTOMY ATRIAL ABLATION SURGERY flutter and fib ablation BACK SURGERY CARDIAC CATHETERIZATION CHOLECYSTECTOMY CT CHEST ANGIOGRAM W AND/OR WO IV CONTRAST 07/22/2020 CT CHEST ANGIOGRAM W AND/OR WO IV CONTRAST AHMADI CONVERSION CT CHEST ANGIOGRAM W AND/OR WO IV CONTRAST 08/30/2020 CT CHEST ANGIOGRAM W AND/OR WO IV CONTRAST AHMADI CONVERSION CT CHEST ANGIOGRAM W AND/OR WO IV CONTRAST 09/16/2021 CT CHEST ANGIOGRAM W AND/OR WO IV CONTRAST 09/16/2021 CT CHEST ANGIOGRAM W AND/OR WO IV CONTRAST 08/24/2021 CT CHEST ANGIOGRAM W AND/OR WO IV CONTRAST 08/24/2021 CT CHEST ANGIOGRAM W AND/OR WO IV CONTRAST 07/06/2021 CT CHEST ANGIOGRAM W AND/OR WO IV CONTRAST 07/06/2021 CT CHEST ANGIOGRAM W AND/OR WO IV CONTRAST 06/20/2017 CT CHEST ANGIOGRAM W AND/OR WO IV CONTRAST 06/20/2017 NECK SURGERY THYROIDECTOMY Family History[]Expand by Default Family History Problem Relation Name Age of Onset Hypertension Mother Hypertension Father Aortic aneurysm Father Aortic aneurysm Paternal Grandfather Social History Tobacco Use Smoking status: Former Types: Cigarettes Quit date: 1983 Years since quittin.1 Smokeless tobacco: Never Vaping Use Vaping Use: Never used Substance Use Topics Alcohol use: Yes Comment: occasional Drug use: Not Currently Review of Systems Constitutional: Negative. HENT: Negative. Eyes: Negative. Respiratory: Negative. Cardiovascular: Negative. Gastrointestinal: Negative. Endocrine: Negative. Genitourinary: Negative. Musculoskeletal: Negative. Skin: Negative. Allergic/Immunologic: Negative. Neurological: Positive for speech difficulty. Negative for dizziness, tremors, seizures, syncope, facial asymmetry, weakness, light-headedness, numbness and headaches. Hematological: Negative. Psychiatric/Behavioral: Negative. Medications: No current facility-administered medications for this encounter. Current Outpatient Medications: aspirin 81 mg chewable tablet, Chew 1 tablet (81 mg) in the morning. Do not start before March 08, 2022., Disp: 30 tablet, Rfl: 3 calcitriol (Rocaltrol) 0.25 mcg capsule, 1 (one) time each day at the same time., Disp: , Rfl: clopidogrel (Plavix) 75 mg tablet, Take 1 tablet (75 mg) by mouth in the morning., Disp: 30 tablet, Rfl: 2 cyanocobalamin (Vitamin B-12) 1,000 mcg tablet, Take 1.25 mcg by mouth every 7 (seven) days., Disp: , Rfl: dilTIAZem CD (Cardizem CD) 240 mg 24 hr capsule, Take 1 capsule (240 mg) by mouth in the morning., Disp: 30 capsule, Rfl: 11 dilTIAZem CD (Cardizem CD) 360 mg 24 hr capsule, Take 1 capsule (360 mg) by mouth once daily as directed., Disp: 30 capsule, Rfl: 11 febuxostat (Uloric) 80 mg tablet, Take 80 mg by mouth in the morning., Disp: , Rfl: levothyroxine (Synthroid, Levoxyl) 175 mcg tablet, 1 (one) time each day at the same time., Disp: , Rfl: pramipexole (Mirapex) 1 mg tablet, Take 2 mg by mouth., Disp: , Rfl: Facility-Administered Medications Ordered in Other Encounters: isoproterenol (Isuprel) 1,000 mcg in dextrose 5 % 500 mL (2 mcg/mL) infusion, 2 mcg/min, intravenous, Continuous, Lalito Joshi MD nitroglycerin (Nitrostat) SL tablet 0.4 mg, 0.4 mg, sublingual, q5 mi (more content not included)...[facility]02[facility]01[facility] Note Procedure ECG 12 lead Performed by: Muna Dickerson MD Authorized by: Muna Dickerson MD ECG reviewed by ED Physician in the absence of a user experience researcher: yes Previous ECG: Previous ECG: Unavailable Interpretation: Interpretation: normal Rate: ECG rate: 64 ECG rate assessment: normal Rhythm: Rhythm: sinus rhythm QRS: QRS axis: Normal QRS intervals: Normal QRS conduction: normal Comments: QTC: 441 I, JERSEY JONES (scribe) documented on behalf of Dr. Dickerson. 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 Pt's at bedside reports pt was about 2-3 minutes into the tilt-table test when pt began to c/o pressure-like chest pain and became aphasic. Cardiology administered 0.4 nitroglycerin SL and no improvement of chest pain and did not receive another dose as pt's reports he gets a bad headache with nitroglycerin. Cardiology staff and pt's reports the aphasia happens sometimes and reports hx of TIAs and HTN and reports pt takes plavix. Denies SOB. NAD noted, Dr. Dickerson aware of pt's presentationUnMcKit[facility] NoteCardiovascular Medicine [facility] Subjective Yoli Antunez Jr. is a 66 y.o. year old male patient here for his 45-day post-Watchman device implant. Says his chest pain has been worse since last seen. Still has SOB, lightheadedness, and palpitations. Patient Active Problem List Diagnosis Paroxysmal atrial fibrillation (CMS/HCC) Essential hypertension Coronary artery disease involving [place] coronary artery of [place] heart without angina pectoris Recurrent falls History of TIA (transient ischemic attack) Pancreatitis, gallstone Implantable loop recorder present 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 History of anesthesia complications Chronic kidney disease Vocal cord palsy Vitamin D deficiency Vitamin B6 deficiency Vitamin B12 deficiency (non anemic) Serous retinal detachment TIA (transient ischemic attack) Headache Shortness of breath Skin sensation disturbance Restless leg Post-void dribbling Postoperative seroma ADA (obstructive sleep apnea) Multifocal atrial tachycardia (CMS/HCC) Nocturia Myopathy Non-intractable vomiting with nausea Nuclear sclerotic cataract, left Ocular migraine Metabolic acidosis Meniere disease Low back pain Localized, primary osteoarthritis of elbow Left ventricular hypertrophy Lactic acid acidosis Jaundice Hypoparathyroidism (CMS/HCC) Hypomagnesemia Hypocalcemia Hyperlipidemia Hyperglycemia Hydronephrosis Hoarseness History of peptic ulcer History of kidney stones Gout Esophageal dysmotility Expressive aphasia Abnormal swallowing Diverticulosis of small intestine Disorder of autonomic nervous system Difficulty swallowing solids Angina at rest (CMS/HCC) Chronic gouty arthritis Dehydration Artificial knee joint present Atypical migraine Benign prostatic hyperplasia with urinary obstruction Acute renal failure syndrome (CMS/HCC) EMELIA (acute kidney injury) (CMS/HCC) Apnea Arthralgia of upper arm Acute gastric ulcer Abnormal laboratory test result Family History Problem Relation Name Age of Onset Hypertension Mother Hypertension Father Aortic aneurysm Father Aortic aneurysm Paternal Grandfather Social History Tobacco Use Smoking status: Former Types: Cigarettes Quit date: 1983 Years since quittin.0 Smokeless tobacco: Never Vaping Use Vaping Use: Never used Substance Use Topics Alcohol use: Yes Comment: occasional HPI 05/01/2022 He underwent Watchman implant on 03/06/2022. He underwent his 45-day follow-up CHANTELLE on 04/25/22 which showed the device was well seated and without any christen-device leak or thrombus. At last visit he c/o worsened CP and palpitations. ECHO was done which had no acute findings. We increased his diltiazem. He c/o worsened chest pain and palpitations since last seen. He had an epsiode last week where he was climbing about 30 stairs at work and he couldn't make it do the top and he had near syncope, started with kaleda scope vision and ringing in his ears then the chest pain, palpitations, SOB, sweating. Palpitations are intermittent, lasts 10-15 mins, resolve on their own. Can occur with rest or exertion. Accompanied sx's include dizziness/LH, SOB, and left sided chest pain. He rests and sx's improve after 10-15 mins. If he checks his pulse at rest, it feels regularly irregular. Dr. Joshi noted he had PACs during a previous visit. Spoke to device clinic, loop recorder readings: 03/28/2022 - sinus, no events 04/30/2022 - sinus, no events since implant He lays on his right side or on his stomach, he c/o SOB and feels like he can't take a deep breath in. Has been going on for the past few months. PCP referred patient to see the autonomic dysfunction clinic. Orthostatic vitals checked in clinic. Vitals were negative but he became very symptomatic with dizziness, near syncope, diaphoresis, chest pain, SOB. After about 5-10 minutes he became aphasic. He assured me that this happens periodically, has occurred since his prior TIA. He also had an aphasic episode after he received anethesia for his follow-up CHANTELLE. Last HPI per Dr. Christie: He is a 66-year-old man with prior history of paroxysmal atrial fibrillation and flutter status post 3 ablations in the past included pulmonary vein isolation. He has residual episodes of paroxysmal atrial fibrillation that he feels happening frequently. He is maintained on anticoagulation with Eliquis. He has recurrent significant falls and last fall was about 10 days ago when he fell backwards along his back. In addition he has prior history of ulcer disease and underwent surgery about a year ago. He reports significant bruising and easy bleeding every time he cuts himself. 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 He also cannot afford Eliquis and does not remember to take it on a regular basis. Additional medical history includes prior history of TIA, hypert (more content not included)...[facility]01-10[facility] NotePatient here for 45-day follow up s/p Watchman implant. Still says symptoms are worsening. Review of Systems Cardiovascular: Positive for chest pain, dyspnea on exertion, leg swelling and palpitations. Respiratory: Positive for cough. Musculoskeletal: Positive for arthritis, back pain, myalgias and neck pain. Neurological: Positive for light-headedness. All other systems reviewed and are negative.[facility] 01-05-2022 History of Present illness Narrative* Paul Atkins - 01/05/2022 4:23 PM EDT CLINICAL PHARMACY NOTE: MEDS TO BEDS Total # of Prescriptions Filled: 4 The following medications were delivered to the patient: Ciprofloxacin 500mg Metronidazole 500mg Ondansetron 4mg Percocet 5-325mg Additional Documentation: delivered to patient in room 318 01/05 at 4:12pm. Co- pay paid with ramirez. 1visitor at time of delivery. * Elio Campos MD - 01/05/2022 10:47 AM EDT Images from the original note were not included. NEPHROLOGY PROGRESS NOTE SUBJECTIVE Briefly patient transferred from outside hospital. Multiple ER visits for abdominal pain nausea vomiting and hematemesis. Imaging reveals appendicitis versus small omental infarct. Also possible hydrops gallbladder. Patient underwent robotic lap ivy on January 02. Patient has a history of CKD stage III baseline creatinine is 1.4-1.7 on admission creatinine was 3.86. Nephrology was consulted for EMELIA. At bedside today creatinine is 2.5 improving. Potassium is 4.6. Urine output yesterday was 3.3 L. There is no a urine OP recorded today. Patient seen at bedside today. Abdomen is appropriately tenderafter robotic cholecystectomy. Passing flatus. Quite ambulatory and eager for discharge. OBJECTIVE Vitals: 01/05/22 0356 01/05/22 0745 01/05/22 0746 01/05/22 0900 BP: (!) 168/97 (!) 143/80 Pulse: 86 63 Resp: 16 24 18 Temp: 97.9 F (36.6 C) TempSrc: Axillary SpO2: 98% Weight: Height: 24HR INTAKE/OUTPUT: Intake/Output Summary (Last 24 hours) at 01/05/2022 1048 Last data filed at 01/05/2022 0745 Gross per 24 hour Intake 120 ml Output -- Net 120 ml General appearance:Awake, alert, in no acute distress HEENT: PERRLA Respiratory::vesicular breath sounds,no wheeze/crackles Cardiovascular:S1 S2 normal,no gallop or organic murmur. Abdomen: Positive postoperative tenderness with some distention. Bowel sounds present Extremities: No Cyanosis or Clubbing, minimal lower extremity edema Neurological:Alert and oriented.No abnormalities of mood, affect, memory, mentation, or behavior are noted MEDICATIONS Scheduled Meds: apixaban 5 mg Oral BID levothyroxine 150 mcg Oral Daily dilTIAZem 120 mg Oral Daily pramipexole 2 mg Oral Nightly metroNIDAZOLE 500 mg Oral 3 times per day ciprofloxacin 500 mg Oral Daily sodium chloride flush 5-40 mL IntraVENous 2 times per day Continuous Infusions: sodium chloride 100 mL/hr at 01/04/22 1327 sodium chloride PRN Meds: HYDROmorphone OR HYDROmorphone, oxyCODONE-acetaminophen OR oxyCODONE-acetaminophen, ondansetron OR ondansetron, sodium chloride flush, sodium chloride Home Meds: Medications Prior to Admission: pramipexole (MIRAPEX) 1 MG tablet, Take 2 mg by mouth daily dilTIAZem (CARDIZEM 12 HR) 120 MG extended release capsule, Take 120 mg by mouth daily vitamin B-12 (CYANOCOBALAMIN) 1000 MCG tablet, Take 1.25 mcg by mouth once a week Saturday levothyroxine (SYNTHROID) 150 MCG tablet, Take 150 mcg by mouth daily febuxostat (ULORIC) 40 MG TABS tablet, Take 40 mg by mouth daily benazepril (LOTENSIN) 10 MG tablet, Take 10 mg by mouth daily apixaban (ELIQUIS) 5 MG TABS tablet, Take 5 mg by mouth 2 times daily INVESTIGATIONS Last 3 CMP: Recent Labs 01/03/22 0547 01/04/22 0342 01/05/22 0501 NA 138 141 147* K 4.8 4.3 4.6 CL 106 107 108* CO2 16* 21 25 BUN 53* 54* 40* CREATININE 3.44* 3.07* 2.50* CALCIUM 6.9* 6.6* 6.4* PROT 6.7 -- -- LABALBU 3.2* -- -- BILITOT 1.1 -- -- ALKPHOS 104 -- -- AST 49* -- -- ALT 94* -- -- Last 3 CBC: Recent Labs 01/03/22 0547 01/04/22 0936 WBC 12.5* 12.2* RBC 3.75* 3.39* HGB 10.3* 9.3* HCT 31.4* 28.4* MCV 83.7 83.8 MCH 27.5 27.4 MCHC 32.8 32.7 RDW 14.5* 14.3 PLT 170 177 MPV 10.9 10.6 ASSESSMENT #1 acute kidney injury secondary to prerenal injury from volume depletion related to poor p.o./GI losses and acute pancreatitis -improving, creatinine down to 2.5 mg/dl today #2 chronic kidney disease stage III with baseline creatinine 1.5-1.7 #3 metabolic acidosis improving #4 acute pancreatitis improving #5 status post laparoscopic cholecystectomy #6 history of atrial fibrillation PLAN #1 Continue normal saline at 100 mL/h #2 EMELIA is improving. Will discuss with attending if okay to discharge. Tad Corea MD Internal medicine, PGY-2 [facility], [facility] @TODAY@ 10:53 AM Attending Physician Statement I have discussed the care of Yoli Antunez, including pertinent history and exam findings withthe resident/fellow. I have reviewed the umaña elements of all parts of the encounter with the resident/fellow and have edited the documentation as appropriate. I have seen and examined the patient with the resident/fellow. I agree with the assessment and plan and status of the problem list as documented. Additionally, I recommend discontinue normal saline maintenance IV fluids. Also, the patient is stable for discharge from a Nephrology stand point. Patient should follow up with me in the officein 1-3 weeks as availability allows. I did speak with the patient's nurse today regarding the plan. Elio Campos MD Nephrology Attending Physician [facility] 01/05/2022 * Dariela Walker MD - 01/05/2022 10:40 AM EDT Images from the original note were not included. [facility] Office: [phone] Mehdi Mcallister DO, Meliton Willard DO, Vicente Herrera DO, Johnson Roque DO, Mickie Machado MD, Joie Carbajal MD, Nunu Klein MD, Kate Chester MD, Mariano Diego MD, Cal Sanchez MD, Darren Waldrop DO, Erika Aldridge MD, Carlitos Abel DO, Lorenzo Wagner MD, Brian Swenson MD, Osmel Mcallister DO, Darline Walden MD, John Saul MD, Zuleyka Negro MD, Keiry Jones MD, Shefali Mcdonnell MD, Dariela Walker MD, Abdirahman Kiser DO, Cornelia George MD, Octaviano Bolden MD, Julia Vasquez, NEETU, Joanne Hameed CNP, Jazmine Huitron, ADMINISTRATIVE DIRECTOR, Tono Braun, ADMINISTRATIVE DIRECTOR, Annie Quijano, KENYA, Brunilda Fuller, ADMINISTRATIVE DIRECTOR, Andria Rutherford, ADMINISTRATIVE DIRECTOR, Akila Franks, ADMINISTRATIVE DIRECTOR, Shivani Rascon, ADMINISTRATIVE DIRECTOR, Mayte Martinez, ADMINISTRATIVE DIRECTOR, BLANCHE Nelson-C, Esha Kumari, CIRCULAR KNIFE MACHINE CUTTER, Monica Levy, KENYA, Marifer Dunne, ADMINISTRATIVE DIRECTOR, Rosie Longoria, ADMINISTRATIVE DIRECTOR, Nohelia Morris, ADMINISTRATIVE DIRECTOR [facility] IN-PATIENT SERVICE [facility] Progress Note Name: Yoli Antunez Acct: [id number] Room: 0318/0318-01 IP Day: 5 Admit Date: 12/31/2021 11:15 PM PCP: Radha Price MD Code Status: Full Code Subjective: C/C: nausea,vomiting, fevers Interval History Status: improved. Patient continues to have left upper quadrant pain although much improved, had an episode of nausearelieved with Zofran this morning. Denies any other complaints. Anxious for discharge. He is passing flatus. Afebrile, hemodynamically stable Creatinine improved to 2.5, bicarb 25 Brief History: 22-tnkh-uuu-year-old with prior history of CKD 3, hypertension, prior TIA, paroxysmal A. fib, aortic root aneurysm presented with right lower quadrant and flank pain, initially started on 12/28/2021 when he was evaluated at [facility]. Imaging suggested possible epiploic appendicitis versus small omental infarct. He was treated symptomatically and discharged but symptoms reappeared after eating a sandwich associated with nausea vomiting fevers chills and dark black melanotic diarrheal stools prompted repeat ED visit. CT abdomen pelvis demonstrated right epiploic appendagitis versus omental infarct with overall stranding fat density next to descending colon, moderate hiatal hernia with d uodenal diverticulum. Labs showed transaminitis with lipase more than 6000, EMELIA creatinine 3.3. Gallbladder ultrasound showed dilated CBD 7 to 10 mm with suspected sludge and gallstones. renal ultrasound showed no hydronephrosis. Review of Systems: Constitutional: negative for chills, fevers, sweats Respiratory: negative for cough, dyspnea on exertion, shortness of breath, wheezing Cardiovascular: negative for chest pain, chest pressure/discomfort, lower extremity edema, palpitations Gastrointestinal: negative for , nausea, vomiting Neurological: negative for dizziness, headache Medications: Allergies: Allergies Allergen Reactions Dofetilide Unable to speak Penicillins Current Meds: Scheduled Meds: ciprofloxacin 500 mg Oral 2 times per day apixaban 5 mg Oral BID levothyroxine 150 mcg Oral Daily dilTIAZem 120 mg Oral Daily pramipexole 2 mg Oral Nightly metroNIDAZOLE 500 mg Oral 3 times per day sodium chloride flush 5-40 mL IntraVENous 2 times per day Continuous Infusions: sodium chloride PRN Meds: HYDROmorphone OR HYDROmorphone, oxyCODONE-acetaminophen OR oxyCODONE-acetaminophen, ondansetron OR ondansetron, sodium chloride flush, sodium chloride Data: Past Medical History: has no past medical history on file. Social History: reports that he has never smoked. He has never used smokeless tobacco. Family History: No family history on file. Vitals: BP (!) 143/80 Pulse 63 Temp 97.9 F (36.6 C) (Axillary) Resp 16 Ht 6' 6 (1.981 m) Wt 255 lb (115.7 kg) SpO2 98% BMI 29.47 kg/m Temp (24hrs), Av.1 F (36.7 C), Min:97.9 F (36.6 C), Max:98.3 F (36.8 C) No results for input(s): POCGLU in the last 72 hours. I/O (24Hr): Intake/Output Summary (Last 24 hours) at 01/05/2022 1415 Last data filed at 01/05/2022 0745 Gross per 24 hour Intake 120 ml Output -- Net 120 ml Labs: Hematology: Recent Labs 01/03/22 0547 01/04/22 0936 WBC 12.5* 12.2* RBC 3.75* 3.39* HGB 10.3* 9.3* HCT 31.4* 28.4* MCV 83.7 83.8 MCH 27.5 27.4 MCHC 32.8 32.7 RDW 14.5* 14.3 PLT 170 177 MPV 10.9 10.6 Chemistry: Recent Labs 01/03/22 0547 01/04/22 0342 01/05/22 0501 NA 138 141 147* K 4.8 4.3 4.6 CL 106 107 108* CO2 16* 21 25 GLUCOSE 138* 95 99 BUN 53* 54* 40* CREATININE 3.44* 3.07* 2.50* ANIONGAP 16 13 14 LABGLOM 18* 20* 26* GFRAA 22* 25* 31* CALCIUM 6.9* 6.6* 6.4* Recent Labs 01/03/22 0547 PROT 6.7 LABALBU 3.2* AST 49* ALT 94* ALKPHOS 104 BILITOT 1.1 BILIDIR 0.6* LIPASE 250* Lab Results Component Value Date/Time SPECIAL RT AC 6ML 01/01/2022 12:01 AM Lab Results Component Value Date/Time CULTURE NO GROWTH 01/01/2022 04:36 AM Radiology: US RENAL LIMITED Result Date: 01/02/2022 Unremarkable renal ultrasound. No hydronephrosis. MRI ABDOMEN WO CONTRAST MRCP Result Date: 01/01/2022 1. Christen pancreatic inflammation suggestive of acute pancreatitis. No pancreatic duct dilatation. 2.Cholelithiasis without evidence for acute cholecystitis, biliary dilatation or choledocholithiasis. Physical Examination: General appearance: alert, cooperative ,not in any distress Mental Status: oriented to person, place and time and normal affect Lungs: clear to auscultation bilaterally, normal effort Heart: regular rate and rhythm, no murmur Abdomen: soft, +tenderness over left flank, nondistended, normal bowel sounds Extremities: no edema, redness, tenderness in the calves Skin: no gross lesions, rashes, induration Assessment: Hospital Problems Last Modified POA * (Principal) Gall stone pancreatitis 01/02/2022 Yes Acute pancreatitis, unspecified complication status, unspecified pancreatitis type 12/31/2021 Yes EMELIA (acute kidney injury) ([facility]) 01/01/2022 Yes CKD (chronic kidney disease) stage 3, GFR 30-59 ml/min ([facility]) 01/01/2022 Yes Non-intractable vomiting with nausea 01/01/2022 Yes Jaundice 01/01/2022 Yes Lactic acid acidosis 01/01/2022 Yes Hyperglycemia 01/01/2022 Yes Paroxysmal A-fib ([facility]) 01/01/2022 Yes History of TIA (transient ischemic attack) 01/01/2022 Yes Apnea 01/01/2022 Yes History of kidney stones 01/01/2022 Yes Metabolic acidosis 01/03/2022 Yes History of peptic ulcer 01/01/2022 Yes Overview Signed 01/01/2022 2:21 AM by Darline Walden MD S/p egd at [facility] 08/2020 Plan: S/p cholecystectomy day3 -Continue Percocet as needed for pain control. -Renal function continues to improve. Appreciate nephrology recommendations. Discussed with Dr. Grijalva. -Restarted on Eliquis. Was also started on empiric antibiotic therapy for infected cholecystitis per general surgery Ciproand Flagyl for 5 days. - Diet mgmt postop per gensurg. -Continue home dose of Synthroid, diltiazem and pramipexole. Plan on d/c to home if ok with nephrology Dariela Walker MD 01/05/2022 * Spencer Grijalva MD - 01/04/2022 1:31 PM EDT NEPHROLOGY PROGRESS NOTE SUBJECTIVE Presented with nausea vomiting abdominal pain secondary to acute pancreatitis and subsequently underwent a robotic laparoscopic cholecystectomy. Renal function decline prompting nephrology consultation. With IV hydration and optimization of fluid status renal function is showing improvement. His baseline creatinine is 1.5-1.7. Last creatinine was 3. Decent diuresis. Appetite decent. No hemodynamic compromise. OBJECTIVE Vitals: 01/04/22 0430 01/04/22 0459 01/04/22 0800 01/04/22 1028 BP: (!) 141/80 123/75 Pulse: 76 73 Resp: 16 14 16 Temp: 98.3 F (36.8 C) TempSrc: Oral SpO2: 94% Weight: Height: 24HR INTAKE/OUTPUT: Intake/Output Summary (Last 24 hours) at 01/04/2022 1331 Last data filed at 01/04/2022 0400 Gross per 24 hour Intake -- Output 2250 ml Net -2250 ml General appearance:Awake, alert, in no acute distress HEENT: PERRLA Respiratory::vesicular breath sounds,no wheeze/crackles Cardiovascular:S1 S2 normal,no gallop or organic murmur. Abdomen:Non tender/non distended.Bowel sounds present Extremities: No Cyanosis or Clubbing, minimal lower extremity edema Neurological:Alert and oriented.No abnormalities of mood, affect, memory, mentation, or behavior are noted MEDICATIONS Scheduled Meds: apixaban 5 mg Oral BID levothyroxine 150 mcg Oral Daily dilTIAZem 120 mg Oral Daily pramipexole 2 mg Oral Nightly metroNIDAZOLE 500 mg Oral 3 times per day ciprofloxacin 500 mg Oral Daily sodium chloride flush 5-40 mL IntraVENous 2 times per day Continuous Infusions: sodium chloride 100 mL/hr at 01/04/22 1327 sodium chloride PRN Meds: HYDROmorphone OR HYDROmorphone, oxyCODONE-acetaminophen OR oxyCODONE-acetaminophen, ondansetron OR ondansetron, sodium chloride flush, sodium chloride Home Meds: Medications Prior to Admission: pramipexole (MIRAPEX) 1 MG tablet, Take 2 mg by mouth daily dilTIAZem (CARDIZEM 12 HR) 120 MG extended release capsule, Take 120 mg by mouth daily vitamin B-12 (CYANOCOBALAMIN) 1000 MCG tablet, Take 1.25 mcg by mouth once a week Saturday levothyroxine (SYNTHROID) 150 MCG tablet, Take 150 mcg by mouth daily febuxostat (ULORIC) 40 MG TABS tablet, Take 40 mg by mouth daily benazepril (LOTENSIN) 10 MG tablet, Take 10 mg by mouth daily apixaban (ELIQUIS) 5 MG TABS tablet, Take 5 mg by mouth 2 times daily INVESTIGATIONS Last 3 CMP: Recent Labs 01/02/2252101/02/22 1716 01/03/22 0547 01/04/22 0342 NA 141 142 138 141 K 4.6 5.0 4.8 4.3 CL 109* 108* 106 107 CO2 18* 20 16* 21 BUN 63* 55* 53* 54* CREATININE 4.02* 3.51* 3.44* 3.07* CALCIUM 7.2* 7.2* 6.9* 6.6* PROT 6.1* -- 6.7 -- LABALBU 2.9* -- 3.2* -- BILITOT 1.8* -- 1.1 -- ALKPHOS 96 -- 104 -- AST 50* -- 49* -- ALT 123* -- 94* -- Last 3 CBC: Recent Labs 01/02/22 0501/03/22 0547 01/04/22 0936 WBC 12.2* 12.5* 12.2* RBC 3.64* 3.75* 3.39* HGB 10.2* 10.3* 9.3* HCT 30.4* 31.4* 28.4* MCV 83.5 83.7 83.8 MCH 28.0 27.5 27.4 MCHC 33.6 32.8 32.7 RDW 14.4 14.5* 14.3 PLT 150 170 177 MPV 10.3 10.9 10.6 ASSESSMENT #1 acute kidney injury secondary to prerenal injury from volume depletion related to poor p.o./GI losses and acute pancreatitis -improving #2 chronic kidney disease stage III with baseline creatinine 1.5-1.7 #3 metabolic acidosis improving #4 acute pancreatitis improving #5 status post laparoscopic cholecystectomy #6 history of atrial fibrillation PLAN #1 transition to isotonic saline for a day #2 okay to discharge tomorrow if renal function continues to improve Please do not hesitate to call with questions This note is created with the assistance of a speech-recognition program. While intending to generate a document that actually reflects the content of the visit, no guarantees can be provided that every mistake has been identified and corrected by editing Spencer Grijalva MD MD, MRCP (), FACP 01/04/2022 1:31 PM [facility] * Dariela Walker MD - 01/04/2022 10:45 AM EDT Images from the original note were not included. [facility] Office: [phone] Mehdi Mcallister DO, Meliton Willard DO, Vicente Herrera DO, Johnson Roque DO, Mickie Machado MD, Joie Carbajal MD, Nunu Klein MD, Kate Chester MD, Mariano Diego MD, Cal Sanchez MD, Darren WaldropDO, Erika Aldridge MD, Carlitos Abel DO, Lorenzo Wagner MD, Brian Swenson MD, Osmel Mcallister DO, Darline Walden MD, John Saul MD, Zuleyka Negro MD, Keiry Jones MD, Shefali Mcdonnell MD, Dariela Walker MD, Abdirahman Kiser DO, Cornelia George MD, Octaviano Bolden MD, Julia Vasquez CNP, Joanne Hameed CNP, Jazmine Huitron, NEETU, Tono Braun CNP, Annie Quijano DNP, Brunilda Fuller, NEETU, Andria Rutherford CNP, Akila Franks CNP, Shivani Rascon NEETU, Mayte Martinez CNP, Aliya Reyes PA-C, Esha Kumari, YAMILET, Monica Levy, KENYA, Marifer Dunne, NEETU, Rosie Longoria, NEETU, Nohelia Morris, NEETU [facility] IN-PATIENT SERVICE [facility] Progress Note Name: Yoli Antunez Acct: [id number] Room: [address] [place] [address] IP Day: 4 Admit Date: 12/31/2021 11:15 PM PCP: Radha Price MD Code Status: Full Code Subjective: C/C: nausea,vomiting, fevers Interval History Status: improved. Patient indicates doing well no nausea vomiting. Continues to have left upper quadrant pain intermittently. No flatus or bowel movement yet . hemodynamically stable. Creatinine improved to 3.07 WBC 12.2 Brief History: 29-ysro-rtj-year-old with prior history of CKD 3, hypertension, prior TIA, paroxysmal A. fib, aortic root aneurysm presented with right lower quadrant and flank pain, initially started on 12/28/2021 when he was evaluated at [facility]. Imaging suggested possible epiploic appendicitis versus small omental infarct. He was treated symptomatically and discharged but symptoms reappeared after eating a sandwich associated with nausea vomiting fevers chills and dark black melanotic diarrheal stools prompted repeat ED visit. CT abdomen pelvis demonstrated right epiploic appendagitis versus omental infarct with overall stranding fat density next to descending colon, moderate hiatal hernia with d uodenal diverticulum. Labs showed transaminitis with lipase more than 6000, EMELIA creatinine 3.3. Gallbladder ultrasound showed dilated CBD 7 to 10 mm with suspected sludge and gallstones. renal ultrasound showed no hydronephrosis. Review of Systems: Constitutional: negative for chills, fevers, sweats Respiratory: negative for cough, dyspnea on exertion, shortness of breath, wheezing Cardiovascular: negative for chest pain, chest pressure/discomfort, lower extremity edema, palpitations Gastrointestinal: negative for , nausea, vomiting Neurological: negative for dizziness, headache Medications: Allergies: Allergies Allergen Reactions Dofetilide Unable to speak Penicillins Current Meds: Scheduled Meds: apixaban 5 mg Oral BID levothyroxine 150 mcg Oral Daily dilTIAZem 120 mg Oral Daily pramipexole 2 mg Oral Nightly metroNIDAZOLE 500 mg Oral 3 times per day ciprofloxacin 500 mg Oral Daily sodium chloride flush 5-40 mL IntraVENous 2 times per day Continuous Infusions: sodium chloride 100 mL/hr at 01/04/22 1327 sodium chloride PRN Meds: HYDROmorphone OR HYDROmorphone, oxyCODONE-acetaminophen OR oxyCODONE-acetaminophen, ondansetron OR ondansetron, sodium chloride flush, sodium chloride Data: Past Medical History: has no past medical history on file. Social History: reports that he has never smoked. He has never used smokeless tobacco. Family History: No family history on file. Vitals: BP 123/75 Pulse 73 Temp 98.3 F (36.8 C) (Oral) Resp 16 Ht 6' 6 (1.981 m) Wt 255 lb (115.7 kg) SpO2 94% BMI 29.47 kg/m Temp (24hrs), Av.2 F (36.8 C), Min:97.8 F (36.6 C), Max:98.5 F (36.9 C) No results for input(s): POCGLU in the last 72 hours. I/O (24Hr): Intake/Output Summary (Last 24 hours) at 01/04/2022 1610 Last data filed at 01/04/2022 0400 Gross per 24 hour Intake -- Output 1900 ml Net -1900 ml Labs: Hematology: Recent Labs 01/02/22 0522 01/03/22 0547 01/04/22 0936 WBC 12.2* 12.5* 12.2* RBC 3.64* 3.75* 3.39* HGB 10.2* 10.3* 9.3* HCT 30.4* 31.4* 28.4* MCV 83.5 83.7 83.8 MCH 28.0 27.5 27.4 MCHC 33.6 32.8 32.7 RDW 14.4 14.5* 14.3 PLT 150 170 177 MPV 10.3 10.9 10.6 Chemistry: Recent Labs 01/02/22 1716 01/03/22 0547 01/04/22 0342 NA 142 138 141 K 5.0 4.8 4.3 CL 108* 106 107 CO2 20 16* 21 GLUCOSE 122* 138* 95 BUN 55* 53* 54* CREATININE 3.51* 3.44* 3.07* ANIONGAP 14 16 13 LABGLOM 17* 18* 20* GFRAA 21* 22* 25* CALCIUM 7.2* 6.9* 6.6* Recent Labs 01/02/22 0522 01/03/22 0547 PROT 6.1* 6.7 LABALBU 2.9* 3.2* AST 50* 49* ALT 123* 94* ALKPHOS 96 104 BILITOT 1.8* 1.1 BILIDIR 1.1* 0.6* LIPASE 1,280* 250* Lab Results Component Value Date/Time SPECIAL RT AC 6ML 01/01/2022 12:01 AM Lab Results Component Value Date/Time CULTURE NO GROWTH 01/01/2022 04:36 AM Radiology: US RENAL LIMITED Result Date: 01/02/2022 Unremarkable renal ultrasound. No hydronephrosis. MRI ABDOMEN WO CONTRAST MRCP Result Date: 01/01/2022 1. Christen pancreatic inflammation suggestive of acute pancreatitis. No pancreatic duct dilatation. 2.Cholelithiasis without evidence for acute cholecystitis, biliary dilatation or choledocholithiasis. Physical Examination: General appearance: alert, cooperative ,not in any distress Mental Status: oriented to person, place and time and normal affect Lungs: clear to auscultation bilaterally, normal effort Heart: regular rate and rhythm, no murmur Abdomen: soft, +tenderness over left flank, nondistended, normal bowel sounds Extremities: no edema, redness, tenderness in the calves Skin: no gross lesions, rashes, induration Assessment: Hospital Problems Last Modified POA * (Principal) Gall stone pancreatitis 01/02/2022 Yes Acute pancreatitis, unspecified complication status, unspecified pancreatitis type 12/31/2021 Yes EMELIA (acute kidney injury) ([facility]) 01/01/2022 Yes CKD (chronic kidney disease) stage 3, GFR 30-59 ml/min ([facility]) 01/01/2022 Yes Non-intractable vomiting with nausea 01/01/2022 Yes Jaundice 01/01/2022 Yes Lactic acid acidosis 01/01/2022 Yes Hyperglycemia 01/01/2022 Yes Paroxysmal A-fib ([facility]) 01/01/2022 Yes History of TIA (transient ischemic attack) 01/01/2022 Yes Apnea 01/01/2022 Yes History of kidney stones 01/01/2022 Yes Metabolic acidosis 01/03/2022 Yes History of peptic ulcer 01/01/2022 Yes Overview Signed 01/01/2022 2:21 AM by Darline Walden MD S/p egd at [facility] 08/2020 Plan: S/p cholecystectomy day2 -Continue Percocet as needed for pain control. -Renal function continues to improve. Appreciate nephrology recommendations. Discussed with Dr. Grijalva:switch to NS. -Restarted on Eliquis. Was also started on empiric antibiotic therapy for infected cholecystitis per general surgery Ciproand Flagyl for 5 days. - Diet mgmt postop per gensurg. -Continue home dose of Synthroid, diltiazem and pramipexole. D/c planning pending renal recovery and return of bowel function. Dariela Walker MD 01/04/2022 * Bhavesh Gunter DO - 01/04/2022 8:05 AM EDT Images from the original note were not included. PROGRESS NOTE PATIENT NAME: Yoli Antunez DATE: 01/04/2022 SURGEON: Hilda PRIMARY CARE PHYSICIAN: Radha Price MD HD: # 4 ASSESSMENT Patient Active Problem List Diagnosis Acute pancreatitis, unspecified complication status, unspecified pancreatitis type Gall stone pancreatitis EMELIA (acute kidney injury) ([facility]) CKD (chronic kidney disease) stage 3, GFR 30-59 ml/min ([facility]) Non-intractable vomiting with nausea Jaundice Lactic acid acidosis Hyperglycemia Paroxysmal A-fib ([facility]CC) History of TIA (transient ischemic attack) History of peptic ulcer Apnea History of kidney stones Metabolic acidosis MEDICAL DECISION MAKING AND PLAN Gallstone pancreatitis: s/p robotic lap ivy 01/02/22 Infected cholecystitis: Continue 5d course PO cipro/flagyl A.fib: eliquis resumed Ok d/c from surgery standpoint Chief Complaint: I'm doing good SUBJECTIVE AMALIA, some HTN yesterday and increased pain improved w/ PO meds, tolerating diet, denies SOB or CP, ambulating without difficulty. OBJECTIVE VITALS: Temp: Temp: 98.3 F (36.8 C)Temp Av.1 F (36.7 C) Min: 97.8 F (36.6 C) Max: 98.5 F (36.9C) BP Systolic (24hrs), Av , Min:112 , Max:169 Diastolic (24hrs), Av, Min:68, Max:98 Pulse Pulse Av.9 Min: 71 Max: 77 Resp Resp Av Min: 14 Max: 18 Pulse ox SpO2 Av.8 % Min: 94 % Max: 97 % GENERAL: alert, no distress LUNGS: clear to ausculation, without wheezes, rales or rhonci HEART: normal rate and regular rhythm ABDOMEN: soft, non-distended, incisional pain mild EXTREMITY: no cyanosis, clubbing or edema I/O last 3 completed shifts: In: 897.1 [I.V.:448.7; IV Piggyback:448.4] Out: 4100 [Urine:4100] Drain/tube output: In: - Out: 3300 [Urine:3300] LAB: CBC: Recent Labs 01/02/22 0501/03/22 0547 WBC 12.2* 12.5* HGB 10.2* 10.3* HCT 30.4* 31.4* MCV 83.5 83.7 PLT 150 170 BMP: Recent Labs 01/02/22 0522 01/02/22 1716 01/03/22 0547 NA 141 142 138 K 4.6 5.0 4.8 CL 109* 108* 106 CO2 18* 20 16* BUN 63* 55* 53* CREATININE 4.02* 3.51* 3.44* GLUCOSE 106* 122* 138* COAGS: Recent Labs 01/02/22 0501/03/22 0547 PROT 6.1* 6.7 RADIOLOGY: CXR: No results found. Trauma Attending Attestation I have reviewed the above GCS note(s) and confirmed the umaña elements of the medical history and physical exam. I have seen and examined the pt. I have discussed the findings, established the care plan and recommendations with Resident. Bhvaesh Gunter DO 01/05/2022 7:56 AM * Dariela Walker MD - 01/03/2022 4:36 PM EDT Physician Progress Note PATIENT: YOLI ANTUNEZ CSN #: [id number] : 1955 ADMIT DATE: 12/31/2021 11:15 PM DISCH DATE: RESPONDING PROVIDER #: Dariela Walker MD QUERY TEXT: Patient admitted with Gall stone pancreatitis. Noted documentation of sepsis in GI consult note and 01/02 PN. If possible, please document in the progress notes and discharge summary if you are evaluating and /or treating any of the following: The medical record reflects the following: Risk Factors: CKD, Age Clinical Indicators: WBC 16.8, 12.2, 12.5 Lactic Acid starts at 1.3 and ranges 0.9-1.5 Procalcitonin 67.66, 16.48. HR> 90 up to 93, RR>20 up to 21. Noted in 01/02 Op Note: thick purulent bile and acutely inflamed gallbladder with periportal edema. Noted in 01/03 IM PN: started on empiric antibiotic therapy for infected cholecystitis per general surgery Cipro and Flagyl for 5 days. Treatment: Cholecystectomy, Cipro, Flagyl, IV fluids. Monitor VS and labs. Thank you for your time, Jennie MSN, RN CDS. Please call/text/PS with any questions; [phone]. Options provided: -- Sepsis, present on admission -- Sepsis, present on admission, now resolved -- Sepsis, not present on admission -- Gallstone Pancreatitis only without Sepsis -- Sepsis was ruled out -- Other - I will add my own diagnosis -- Disagree - Not applicable / Not valid -- Disagree - Clinically unable to determine / Unknown -- Refer to Clinical Documentation Reviewer PROVIDER RESPONSE TEXT: This patient has Gallstone Pancreatitis without Sepsis. Query created by: Jennie Farfan on 01/03/2022 4:30 PM Electronically signed by: Dariela Walker MD 01/03/2022 4:35 PM * Janet Ford, TREATING PLANT OPERATOR - ADMINISTRATIVE DIRECTOR - 01/03/2022 2:[address] [facility] Gastroenterology Progress Note Yoli Antunez is a 66 y.o. male patient. Hospitalization Day:3 Chief consult reason: Biliary pancreatitis Subjective: Patient seen and examined. No acute events overnight. Patient tolerating diet without nausea or vomiting. Ambulating freely in the hallways Bilirubin normalized to 1.1 Leukocytosis improving Objective: VITALS: BP 112/73 Pulse 76 Temp 97.9 F (36.6 C) (Oral) Resp 16 Ht 6' 6 (1.981 m) Wt 255 lb (115.7 kg) SpO2 94% BMI 29.47 kg/m TEMPERATURE: Current - Temp: 97.9 F (36.6 C); Max - Temp Av.8 F (36.6 C) Min: 96.8 F (36 C) Max: 98.5 F (36.9 C) Physical Assessment: General appearance: alert, cooperative and no distress Mental Status: oriented to person, place and time and normal affect Lungs: clear to auscultation bilaterally, normal effort Heart: regular rate and rhythm, no murmur Abdomen: soft, nontender, nondistended, normal bowel sounds, no masses Extremities: no edema, no redness, No clubbing Skin: warm, dry, no gross lesions or rashes CURRENT MEDICATIONS: Scheduled Meds: apixaban 5 mg Oral BID levothyroxine 150 mcg Oral Daily dilTIAZem 120 mg Oral Daily [START ON 01/04/2022] pramipexole 2 mg Oral Nightly metroNIDAZOLE 500 mg Oral 3 times per day ciprofloxacin 500 mg Oral Daily sodium chloride flush 5-40 mL IntraVENous 2 times per day Continuous Infusions: sodium bicarbonate infusion 100 mL/hr at 01/03/22 1239 sodium chloride PRN Meds:HYDROmorphone OR HYDROmorphone, oxyCODONE-acetaminophen OR oxyCODONE-acetaminophen, ondansetron OR ondansetron, sodium chloride flush, sodium chloride Data Review: LABS and IMAGING: CBC Recent Labs 01/01/22 0727 01/02/22 0522 01/03/22 0547 WBC 16.8* 12.2* 12.5* HGB 10.0* 10.2* 10.3* HCT 30.0* 30.4* 31.4* MCV 84.7 83.5 83.7 MCHC 33.3 33.6 32.8 RDW 14.5* 14.4 14.5* PLT 157 150 170 Immature PLTs No results found for: PLTFLUORE ANEMIA STUDIES No results for input(s): LABIRON, TIBC, IRON, FERRITIN, [id number], FOLATE, OCCULTBLD in the last 72 hours. BMP Recent Labs 01/02/22 0522 01/02/22 1716 01/03/22 0547 NA 141 142 138 K 4.6 5.0 4.8 CL 109* 108* 106 CO2 18* 20 16* BUN 63* 55* 53* CREATININE 4.02* 3.51* 3.44* GLUCOSE 106* 122* 138* CALCIUM 7.2* 7.2* 6.9* LFTS Recent Labs 01/01/22 0326 01/01/22 0546 01/01/22 0727 01/02/22 0522 01/03/22 0547 ALKPHOS 98 98 101 96 104 ALT 202* 191* 185* 123* 94* AST 117* 112* 103* 50* 49* BILITOT 4.4* 4.5* 4.3* 1.8* 1.1 BILIDIR 4.1* -- -- 1.1* 0.6* LABALBU 3.2* 3.0* 3.2* 2.9* 3.2* AMYLASE/LIPASE/AMMONIA Recent Labs 01/01/22 0546 01/02/22 0522 01/03/22 0547 LIPASE 1,918* 1,280* 250* Acute Hepatitis Panel No results found for: HEPBSAG, HEPCAB, HEPBIGM, HEPAIGM HCV Genotype No results found for: HEPATITISCGENOTYPE HCV Quantitative No results found for: HCVQNT LIVER WORK UP: AFP No results found for: AFP Alpha 1 antitrypsin No results found for: A1A Anti - Liver/Kidney Ab No results found for: LIVER-KIDNEYMICROSOMALAB KYLE No results found for: KYLE AMA No results found for: MITOAB ASMA No results found for: SMOOTHMUSCAB Ceruloplasmin No results found for: CERULOPLSM Celiac panel No results found for: TISSTRNTIIGG, TTGIGA, IGA IgG No results found for: IGG IgM No results found for: IGM GGT No results found for: LABGGT PT/INR Recent Labs 01/01/22 0546 PROTIME 12.7* INR 1.2 Cancer Markers: CEA: No results found for: CEA Ca 125: No results found for: CA125 Ca 19-9: No results found for: CA199 AFP: No results found for: AFP Lactic acid:No results for input(s): LACTACIDWB in the last 72 hours. Radiology Review: US RENAL LIMITED Result Date: 01/02/2022 EXAMINATION: ULTRASOUND OF THE KIDNEYS 01/02/2022 8:22 am COMPARISON: MRI abdomen from 01/01/2022 HISTORY: ORDERING SYSTEM PROVIDED HISTORY: EMELIA on CKD TECHNOLOGIST PROVIDED HISTORY: EMELIA on CKD 66-year-old male with acute kidney injury on chronic kidney disease FINDINGS: Right kidney measures 14.2 x6.3 x 5.6 cm. Right renal cortical thickness measures 1.6 cm. Left kidney measures 12.9 x 5.3 x 6.0cm. Left renal cortical thickness measures 1.7 cm. No hydronephrosis or perinephric fluid. No echogenic foci with posterior acoustic shadowing to suggest renal calculi. Gross preservation of the bilateral corticomedullary differentiation. Unremarkable renal ultrasound. No hydronephrosis. MRI ABDOMEN WO CONTRAST MRCP Result Date: 01/01/2022 EXAMINATION: MRI OF THE ABDOMEN WITHOUT CONTRAST AND MRCP 01/01/2022 11:40 am TECHNIQUE: Multiplanarmultisequence MRI of the abdomen was performed without the administration of intravenous contrast. After initial T2 axial and coronal images, thick slab, thin slab and 3D coronal MRCP sequences were obtained without the administration of intravenous contrast. MIP images are provided for review. COMPARISON: None HISTORY: ORDERING SYSTEM PROVIDED HISTORY: Assess for Acute Pancreatitis and possible choledocholithiasis TECHNOLOGIST PROVIDED HISTORY: Assess for Acute Pancreatitis and possible choledocholithiasis Reason for Exam: Assess for Acute Pancreatitis and possible choledocholithiasis FINDING S: LOWER CHEST: Linear opacities in the lung bases. Small hiatal hernia. LIVER: The liver is normalin morphology. No evidence for steatosis. No suspicious liver lesion identified.Subcentimeter T2 hyperintense liver lesions are noted, consistent with cysts. GALLBLADDER/BILE DUCTS: Layering sludge and small stones. No wall thickening or surrounding inflammatory change. No intrahepatic nor extrahepatic biliary dilation. PANCREAS: Mild induration of the peripancreatic fat. No focal signal abnormality identified within the pancreatic parenchyma or duct dilatation. SPLEEN: No significant findings.ADRENAL GLANDS: Normal. KIDNEYS: No significant findings. GI/BOWEL: The visualized bowel is normal in caliber. Small duodenal diverticulum. PERITONEUM/RETROPERITONEUM: No abdominal lymphadenopathy. No free intraperitoneal fluid. VESSELS: The aorta is normal in caliber. SOFT TISSUES/BONES: No suspicious signal abnormality identified. *Unless otherwise specified, incidental findings do not require dedicated imaging follow-up. 1. Christen pancreatic inflammation suggestive of acute pancreatitis. No pancreatic duct dilatation. 2.Cholelithiasis without evidence for acute cholecystitis, biliary dilatation or choledocholithiasis. ENDOSCOPY Principal Problem: Gall stone pancreatitis Active Problems: Acute pancreatitis, unspecified complication status, unspecified pancreatitis type EMELIA (acute kidney injury) (HCC) CKD (chronic kidney disease) stage 3, GFR 30-59 ml/min (HCC) Non-intractable vomiting with nausea Jaundice Lactic acid acidosis Hyperglycemia Paroxysmal A-fib (HCC) History of TIA (transient ischemic attack) Apnea History of kidney stones History of peptic ulcer Resolved Problems: * No resolved hospital problems. * GI Assessment: Obstructive jaundice-status post ERCP Acute cholecystitis-status post lap cholecystectomy Gallstone pancreatitis Plan of care: Diet as tolerated Pain management per primary No further recommendations at this time patient may follow-up in the clinic with Dr. Jenaro Klein in 3-4 weeks for general follow up. GI will sign off This plan was formulated in collaboration with Please feel free to contact me with any questions or concerns. Thank you for allowing me to participate in the care of your patient. Janet Ford, TREATING PLANT OPERATOR - ADMINISTRATIVE DIRECTOR [place], [place] Please note that this note was generated using a voice recognition dictation software. Although every effort was made to ensure the accuracy of this automated purchasing associate, some errors in purchasing associate may have occurred. Associated attestation - Juan David Marr MD - 01/04/2022 8:34 PM EDT GI Attending Attestation I have seen and examined the patient and reviewed the umaña elements of the history, physical exam findings and review of systems and discussed the care of this patient with Ms. Janet Ford CNP. I agree with the assessment, management plan and orders with Ms. Ford and primary team. Juan David Marr MD [facility] [place], [place] * Dariela Walker MD - 01/03/2022 9:30 AM EDT Images from the original note were not included. [facility] Office: [phone] Mehdi Mcallister DO, Meliton Willard DO, Vicente Herrera DO, Johnson Roque DO, Mickie Machado MD, Joie Carbajal MD, Nunu Klein MD, Kate Chester MD, Mariano Diego MD, Cal Sanchez MD, Darren Waldrop DO, Erika Aldridge MD, Carlitos Abel DO, Lorenzo Wagner MD, Brian Swenson MD, Osmel Mcallister DO, Darline Walden MD, John Saul MD, Zuleyka Negro MD, Keiry Jones MD, Shefali Mcdonnell MD, Dariela Walker MD, Abdirahman Kiser DO, Corneila George MD, Octaviano Bolden MD, Julia Vasquez CNP, Joanne Hameed CNP, Jazmine Huitron CNP, Tono Braun CNP, Annie Quijano, KENYA, Brunilda Fuller CNP, Andria Rutherford, ADMINISTRATIVE DIRECTOR, Akila Franks, ADMINISTRATIVE DIRECTOR, Shivani Rascon, ADMINISTRATIVE DIRECTOR, Mayte Martinez ADMINISTRATIVE DIRECTOR, BLANCHE Nelson-Leatha, Esha Kumari, YAMILET, Monica Levy DNP, Marifer Dunne, NEETU, Rosie Longoria, NEETU, Nohelia Morris, NEETU [facility] IN-PATIENT SERVICE [facility] Progress Note Name: Yoli Antunez Acct: [id number] Room: 0318/0318-01 Day: 3 Admit Date: 12/31/2021 11:15 PM PCP: Radha Price MD Code Status: Full Code Subjective: C/C: Interval History Status: improved. Patient states ongoing improved pain persists in the left upper quadrant/flank. No flatus or bowel movement. Denies any nausea or vomiting. Walking around in the hallways. Afebrile, hemodynamically stable. Creatinine improved to 3.44, LFTs and WBC improved, lipase improved to 250 Brief History: 13-bbrf-lm[age]-year-old with prior history of CKD 3, hypertension, prior TIA, paroxysmal A. fib, aortic root aneurysm presented with right lower quadrant and flank pain, initially started on 12/28/2021 when he was evaluated at [facility]. Imaging suggested possible epiploic appendicitis versus small omental infarct. He was treated symptomatically and discharged but symptoms reappeared after eating a sandwich associated with nausea vomiting fevers chills and dark black melanotic diarrheal stools prompted repeat ED visit. CT abdomen pelvis demonstrated right epiploic appendagitis versus omental infarct with overall stranding fat density next to descending colon, moderate hiatal hernia with d uodenal diverticulum. Labs showed transaminitis with lipase more than 6000, EMELIA creatinine 3.3. Gallbladder ultrasound showed dilated CBD 7 to 10 mm with suspected sludge and gallstones. renal ultrasound showed no hydronephrosis. Review of Systems: Constitutional: negative for chills, fevers, sweats Respiratory: negative for cough, dyspnea on exertion, shortness of breath, wheezing Cardiovascular: negative for chest pain, chest pressure/discomfort, lower extremity edema, palpitations Gastrointestinal: negative for , nausea, vomiting Neurological: negative for dizziness, headache Medications: Allergies: Allergies Allergen Reactions Dofetilide Unable to speak Penicillins Current Meds: Scheduled Meds: apixaban 5 mg Oral BID levothyroxine 150 mcg Oral Daily dilTIAZem 120 mg Oral Daily [START ON 01/04/2022] pramipexole 2 mg Oral Nightly metroNIDAZOLE 500 mg Oral 3 times per day ciprofloxacin 500 mg Oral Daily sodium chloride flush 5-40 mL IntraVENous 2 times per day Continuous Infusions: sodium bicarbonate infusion 100 mL/hr at 01/03/22 1239 sodium chloride PRN Meds: HYDROmorphone OR HYDROmorphone, oxyCODONE-acetaminophen OR oxyCODONE-acetaminophen, ondansetron OR ondansetron, sodium chloride flush, sodium chloride Data: Past Medical History: has no past medical history on file. Social History: reports that he has never smoked. He has never used smokeless tobacco. Family History: No family history on file. Vitals: BP 112/73 Pulse 76 Temp 97.9 F (36.6 C) (Oral) Resp 16 Ht 6' 6 (1.981 m) Wt 255 lb (115.7 kg) SpO2 94% BMI 29.47 kg/m Temp (24hrs), Av.8 F (36.6 C), Min:96.8 F (36 C), Max:98.5 F (36.9 C) No results for input(s): POCGLU in the last 72 hours. I/O (24Hr): Intake/Output Summary (Last 24 hours) at 01/03/2022 1428 Last data filed at 01/03/2022 1415 Gross per 24 hour Intake 1297.13 ml Output 2200 ml Net -902.87 ml Labs: Hematology: Recent Labs 01/01/22 0546 01/01/22 0727 01/02/22 0522 01/03/22 0547 WBC -- 16.8* 12.2* 12.5* RBC -- 3.54* 3.64* 3.75* HGB -- 10.0* 10.2* 10.3* HCT -- 30.0* 30.4* 31.4* MCV -- 84.7 83.5 83.7 MCH -- 28.2 28.0 27.5 MCHC -- 33.3 33.6 32.8 RDW -- 14.5* 14.4 14.5* PLT -- 157 150 170 MPV -- 11.0 10.3 10.9 INR 1.2 -- -- -- Chemistry: Recent Labs 01/01/22 03201/01/22 0546 01/01/22 0701/01/22 1017 01/01/22 1207 01/02/22 0522 01/02/22 1716 01/03/22 0547 NA 139 140 138 -- -- 141 142 138 K 4.4 4.5 4.4 -- -- 4.6 5.0 4.8 CL 106 109* 107 -- -- 109* 108* 106 CO2 19* 18* 19* -- -- 18* 20 16* GLUCOSE 114* 106* 109* -- -- 106* 122* 138* BUN 58* 59* 59* -- -- 63* 55* 53* CREATININE 3.73* 3.86* 3.74* -- -- 4.02* 3.51* 3.44* MG 1.7 1.7 -- -- -- -- -- -- ANIONGAP 14 13 12 -- -- 14 14 16 LABGLOM 16* 16* 16* -- -- 15* 17* 18* GFRAA 20* 19* 20* -- -- 18* 21* 22* CALCIUM 6.4* 6.5* 6.5* -- -- 7.2* 7.2* 6.9* CAION 0.95* -- -- -- -- -- -- -- PHOS 3.0 -- -- -- -- -- -- -- TROPHS 18 18 18 17 19 -- -- -- Recent Labs 01/01/2232501/01/22 0546 01/01/22 0727 01/02/22 0522 01/03/22 0547 PROT 5.6* 5.5* 5.8* 6.1* 6.7 LABALBU 3.2* 3.0* 3.2* 2.9* 3.2* LABA1C -- 5.7 -- -- -- AST 117* 112* 103* 50* 49* ALT 202* 191* 185* 123* 94* LDH 214 -- -- -- -- ALKPHOS 98 98 101 96 104 BILITOT 4.4* 4.5* 4.3* 1.8* 1.1 BILIDIR 4.1* -- -- 1.1* 0.6* LIPASE -- 1,918* -- 1,280* 250* CHOL 103 -- -- -- -- HDL 46 -- -- -- -- LDLCHOLESTEROL 46 -- -- -- -- CHOLHDLRATIO 2.2 -- -- -- -- TRIG 53 58 -- -- -- ABG:No results found for: POCPH, PHART, PH, POCPCO2, FSK3LZD, PCO2, POCPO2, PO2ART, PO2, POCHCO3, XBD5HRG, HCO3, NBEA, PBEA, BEART, BE, THGBART, THB, LKN8QBV, WPCB7WML, D0LWDYCK, O2SAT, FIO2 Lab Results Component Value Date/Time SPECIAL RT AC 6ML 01/01/2022 12:01 AM Lab Results Component Value Date/Time CULTURE NO GROWTH 01/01/2022 04:36 AM Radiology: US RENAL LIMITED Result Date: 01/02/2022 Unremarkable renal ultrasound. No hydronephrosis. MRI ABDOMEN WO CONTRAST MRCP Result Date: 01/01/2022 1. Christen pancreatic inflammation suggestive of acute pancreatitis. No pancreatic duct dilatation. 2.Cholelithiasis without evidence for acute cholecystitis, biliary dilatation or choledocholithiasis. Physical Examination: General appearance: alert, cooperative , appears in pain Mental Status: oriented to person, place and time and normal affect Lungs: clear to auscultation bilaterally, normal effort Heart: regular rate and rhythm, no murmur Abdomen: soft, +tenderness over left flank, nondistended, ormal bowel sounds Extremities: no edema, redness, tenderness in the calves Skin: no gross lesions, rashes, induration Assessment: Hospital Problems Last Modified POA * (Principal) Gall stone pancreatitis 01/02/2022 Yes Acute pancreatitis, unspecified complication status, unspecified pancreatitis type 12/31/2021 Yes EMELIA (acute kidney injury) ([facility]) 01/01/2022 Yes CKD (chronic kidney disease) stage 3, GFR 30-59 ml/min ([facility]) 01/01/2022 Yes Non-intractable vomiting with nausea 01/01/2022 Yes Jaundice 01/01/2022 Yes Lactic acid acidosis 01/01/2022 Yes Hyperglycemia 01/01/2022 Yes Paroxysmal A-fib (HCC) 01/01/2022 Yes History of TIA (transient ischemic attack) 01/01/2022 Yes Apnea 01/01/2022 Yes History of kidney stones 01/01/2022 Yes History of peptic ulcer 01/01/2022 Yes Overview Signed 01/01/2022 2:21 AM by Darline Walden MD S/p egd at [facility] 08/2020 Plan: S/p cholecystectomy day1 -Was started on as needed Percocet PRN overnight and seems to be doing well continue. - consulted nephrology for worsening EMELIA. No retention noted on u/s. Continue IVF and monitor urineoutput. -General surgery okay with resuming anticoagulation will restart on Eliquis later today. Was also started on empiric antibiotic therapy for infected cholecystitis per general surgery Ciproand Flagyl for 5 days. - Diet mgmt postop per [place]. -Restarted on home dose of Synthroid, diltiazem and pramipexole. Dariela Walker MD 01/03/2022 * Kee Stevens MD - 01/03/2022 6:41 AM EDT Images from the original note were not included. PROGRESS NOTE PATIENT NAME: Yoli Antunez DATE: 01/03/2022 SURGEON: Hilda PRIMARY CARE PHYSICIAN: Radha Price MD HD: # 3 ASSESSMENT Patient Active Problem List Diagnosis Acute pancreatitis, unspecified complication status, unspecified pancreatitis type Gall stone pancreatitis EMELIA (acute kidney injury) (HCC) CKD (chronic kidney disease) stage 3, GFR 30-59 ml/min (HCC) Non-intractable vomiting with nausea Jaundice Lactic acid acidosis Hyperglycemia Paroxysmal A-fib (HCC) History of TIA (transient ischemic attack) History of peptic ulcer Apnea History of kidney stones MEDICAL DECISION MAKING AND PLAN Gallstone pancreatitis: s/p robotic lap ivy 01/02/22 Acute on chronic EMELIA: Creatinine improving, UOP improving. Infected cholecystitis: Continue 5d course PO cipro/flagyl A.fib: If staying in hospital will resume eliquis tonight, if discharging will plan resume in AM Chief Complaint: I'm feeling better SUBJECTIVE AMALIA, VSS, no nausea or emesis, tolerating CLD, no SOB or CP, IS 2500 OBJECTIVE VITALS: Temp: Temp: 98 F (36.7 C)Temp Av.6 F (36.4 C) Min: 96.8 F (36 C) Max: 98.5 F (36.9 C) BP Systolic (24hrs), Av , Min:113 , Max:134 Diastolic (24hrs), Av, Min:64, Max:86 Pulse Pulse Av.9 Min: 71 Max: 93 Resp Resp Av.8 Min: 10 Max: 21 Pulse ox SpO2 Av.1 %Min: 92 % Max: 97 % GENERAL: alert, no distress LUNGS: clear to ausculation, without wheezes, rales or rhonci HEART: normal rate and regular rhythm ABDOMEN: soft, non-distended, incisional pain mild EXTREMITY: no cyanosis, clubbing or edema I/O last 3 completed shifts: In: 1900 [P.O.:200; I.V.:1700] Out: 4770 [Urine:4750; Blood:20] Drain/tube output: In: 2797.1 [P.O.:200; I.V.:2148.7] Out: 4320 [Urine:4300] LAB: CBC: Recent Labs 01/01/2272601/02/2252101/03/22 0547 WBC 16.8* 12.2* 12.5* HGB 10.0* 10.2* 10.3* HCT 30.0* 30.4* 31.4* MCV 84.7 83.5 83.7 PLT 157 150 170 BMP: Recent Labs 01/01/2272601/02/22 0501/02/22 1716 NA 138 141 142 K 4.4 4.6 5.0 CL 107 109* 108* CO2 19* 18* 20 BUN 59* 63* 55* CREATININE 3.74* 4.02* 3.51* GLUCOSE 109* 106* 122* COAGS: Recent Labs 01/01/22 0546 01/01/22 0727 01/02/22 0522 01/03/22 0547 PROT 5.5* 5.8* 6.1* PENDING INR 1.2 -- -- -- RADIOLOGY: CXR: US RENAL LIMITED Result Date: 01/02/2022 EXAMINATION: ULTRASOUND OF THE KIDNEYS 01/02/2022 8:22 am COMPARISON: MRI abdomen from 01/01/2022 HISTORY: ORDERING SYSTEM PROVIDED HISTORY: EMELIA on CKD TECHNOLOGIST PROVIDED HISTORY: EMELIA on CKD 66-year-old male with acute kidney injury on chronic kidney disease FINDINGS: Right kidney measures 14.2 x6.3 x 5.6 cm. Right renal cortical thickness measures 1.6 cm. Left kidney measures 12.9 x 5.3 x 6.0cm. Left renal cortical thickness measures 1.7 cm. No hydronephrosis or perinephric fluid. No echogenic foci with posterior acoustic shadowing to suggest renal calculi. Gross preservation of the bilateral corticomedullary differentiation. Unremarkable renal ultrasound. No hydronephrosis. Attestation signed by Kee Stevens MD I personally evaluated the patient and directed the medical decision making with Resident/AQUILES afterthe physical/radiologic exam and laboratory values were reviewed and confirmed. Feels good, up walking, taking po. DC planning. Kee Stevens MD * Prince Thakkar MD - 01/02/2022 5:24 PM EDT Images from the original note were not included. POST OP NOTE SUBJECTIVE Pt s/p laparoscopic cholecystectomy. Feels well. Pain reasonably controlled. OBJECTIVE VITALS: BP 125/73 Pulse 83 Temp 98.5 F (36.9 C) Resp 16 Ht 6' 6 (1.981 m) Wt 255 lb (115.7 kg) SpO2 93% BMI 29.47 kg/m GENERAL: Awake and alert. No acute distress CARDIOVASCULAR: Regular Rate and Rhythm LUNGS: CTA Bilaterally ABDOMEN: Abdomen soft, non-tender, non-distended INCISION: Incision clean/dry/intact ASSESSMENT 1. POD# 0 s/p laparoscopic cholecystectomy PLAN 1. Pain management- Dilaudid PRN 2. DVT proph- Heparin 3. Diet: Maintain NPO until further improvement from pancreatitis 4. Acute on chronic EMELIA - medicine/Nephrology managing 5. Pancreatitis: LR 150/hr Prince Thakkar MD Trauma/Surgery Service 01/02/2022 at 5:24 PM * Dariela Walker MD - 01/02/2022 2:51 PM EDT Images from the original note were not included. [facility] Office: [phone] Mehdi Mcallister DO, Meliton Willard DO, Vicente Herrera DO, Johnson Roque DO, Mickie Machado MD, Joie Carbajal MD, Nunu Klein MD, Kate Chester MD, Mariano Diego MD, Cal Sanchez MD, Darren Waldrop DO, Erika Aldridge MD, Carlitos Abel DO, Lorenzo Wagner MD, Brian Swenson MD, Osmel Mcallister DO, Darline Walden MD, John Saul MD, Zuleyka Negro MD, Keiry Jones MD, Shefali Mcdonnell MD, Dariela Walker MD, Abdirahman Kiser DO, Cornelia George MD, Octaviano Bolden MD, Julia Vasquez CNP, Joanne Hameed CNP, Jazmine Huitron CNP, Tono Braun, NEETU, Annie Quijano, KENYA, Brunilda Fuller, ADMINISTRATIVE DIRECTOR, Andria Rutherford, ADMINISTRATIVE DIRECTOR, Akila Franks, ADMINISTRATIVE DIRECTOR, Shivani Rascon ADMINISTRATIVE DIRECTOR, Mayte Martinez CNP, Aliya Reyes PA-C, Esha Kumari, CIRCULAR KNIFE MACHINE CUTTER, Monica Levy, KENYA, Marifer Dunne, ADMINISTRATIVE DIRECTOR, Rosie Longoria, ADMINISTRATIVE DIRECTOR, Nohelia Morris, ADMINISTRATIVE DIRECTOR [facility] IN-PATIENT SERVICE [facility] Progress Note Name: Yoli Antunez Acct: [id number] Room: [address] [place] [address] Day: 2 Admit Date: 12/31/2021 11:15 PM PCP: Radha Price MD Code Status: Full Code Subjective: C/C: Interval History Status: improved. Patient underwent cholecystectomy this morning. C/o uncontrolled pain over left flank. Creatinine continues to worsen 4.02 today. LFTs improved, lipase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 stable, was able to tolerate diet, passed flatus,creatinine continued to improve and is stable for discharge. Radiology: US RENAL LIMITED Result Date: 01/02/2022 Unremarkable renal ultrasound. No hydronephrosis. MRI ABDOMEN WO CONTRAST MRCP Result Date: 01/01/2022 1. Christen pancreatic inflammation suggestive of acute pancreatitis. No pancreatic duct dilatation. 2.Cholelithiasis without evidence for acute cholecystitis, biliary dilatation or choledocholithiasis. Consultations: Consults: Final Specialist Recommendations/Findings: IP CONSULT TO GI IP CONSULT TO GENERAL SURGERY IP CONSULT TO IV TEAM IP CONSULT TO NEPHROLOGY The patient was seen and examined on day of discharge and this discharge summary is in conjunction with any daily progress note from day of discharge. Discharge plan: Disposition: Home Physician Follow Up: [facility] [address] [place] [address] [address] [facility] [phone] Schedule an appointment as soon as possible for a visit on 01/16/2022 For wound re-check post op from your Lap Ivy Campos MD [address] [facility] [address] [facility] [address] Follow up in 1 month(s) Diet: regular diet Activity: As tolerated Instructions to Patient: please complete antibiotic therapy and follow-up with doctors as recommended. Discharge Medications: Medication List START taking these medications ciprofloxacin 500 MG tablet Commonly known as: CIPRO Take 1 tablet by mouth every 12 hours for 2 days dilTIAZem 120 MG extended release capsule Commonly known as: CARDIZEM CD Take 1 capsule by mouth daily metroNIDAZOLE 500 MG tablet Commonly known as: FLAGYL Take 1 tablet by mouth every 8 hours for 2 days ondansetron 4 MG tablet Commonly known as: ZOFRAN Take 1 tablet by mouth daily as needed for Nausea or Vomiting oxyCODONE-acetaminophen 5-325 MG per tablet Commonly known as: PERCOCET Take 1 tablet by mouth every 8 hours as needed for Pain for up to 3 days. CONTINUE taking these medications apixaban 5 MG Tabs tablet Commonly known as: ELIQUIS levothyroxine 150 MCG tablet Commonly known as: SYNTHROID pramipexole 1 MG tablet Commonly known as: MIRAPEX vitamin B-12 1000 MCG tablet Commonly known as: CYANOCOBALAMIN STOP taking these medications benazepril 10 MG tablet Commonly known as: LOTENSIN dilTIAZem 120 MG extended release capsule Commonly known as: CARDIZEM 12 HR febuxostat 40 MG Tabs tablet Commonly known as: ULORIC Where to Get Your Medications These medications were sent to [facility] [address] [facility] [phone] - F [phone] [place] [address] ciprofloxacin 500 MG tablet dilTIAZem 120 MG extended release capsule metroNIDAZOLE 500 MG tablet ondansetron 4 MG tablet oxyCODONE-acetaminophen 5-325 MG per tablet Discharge Procedure Orders CBC with Auto Differential Standing Status: Future Standing Exp. Date: 01/05/23 Basic Metabolic Panel Standing Status: Future Standing Exp. Date: 01/05/23 Time Spent on discharge is 20 mins in patient examination, evaluation, counseling as well as medication reconciliation, prescriptions for required medications, discharge plan and follow up. Electronically signed by Dariela Walker MD 01/05/[address] Radha Price MD for the opportunity to be involved in this patient'scare. [facility] [place] Phone: [phone] Hospital Discharge instructions* Discharge Instructions* Sudheer Foote RN - 01/03/2022 9:14 AM EDT Images from the original note were not included. Discharge Instructions for General Surgery No lifting above 10lbs for next 2 weeks. No soaking in bathtubs or submerging yourself in water for 4 weeks Resume activity as tolerated, No operating heavy equipment while using narcotics Wash incision gently with soap and water, pat dry. If steri-strips or surgical glue in place wash gently and leave in place until the glue or strips fall off. (Do not pull/tug) F/u in trauma/acute care surgery clinic in 1-2 weeks Call your doctor for the following: Chills Temperature greater than 101 Pain that is not tolerable despite taking pain medicine as ordered There is increased swelling, redness or warmth at surgical site There is increased drainage or bleeding from surgical site Recommended diet: low fat, low cholesterol diet Depending on your injuries, your doctor may want you to follow a specific diet. Some pain medicine can cause constipation . To avoid this problem: Drink plenty of fluids. Eat foods high in fiber , such as: Whole grain cereals and breads Fruits and vegetables Legumes (eg, beans, lentils) If you are still having problems, talk to your doctor about using laxatives or stool softeners. General questions or concerns may be called to the nurse line at [phone] and please leave a message. * Attachments The following attachments cannot be sent through Care Everywhere. * Pancreatitis: Acute: General Info (Ecuadorean) [facility] [employer] Work Phone: 1(753) 611-855807-28-2022 NotePROCEDURE: XR FOOT LT MIN 3 VIEWS HISTORY: Pain , acute first toe pain which now radiates throughout foot COMPARISON: None. FINDINGS: BONES:Arthritic changes of the first metatarsophalangeal joint. No fracture, dislocation, bone lesion. Calcaneal plantar spur. SOFT TISSUES:No visible soft tissue swelling. EFFUSION:None visible. OTHER: Negative. IMPRESSION: 1. Mild to moderate arthritic changes of the first metatarsophalangeal joints suspicious for gout. Electronically authenticated by: DONNELL DU Date: 2021-11-16 08:26[facility]06-13-2022 Evaluation note* Encounter Date Diagnosis Assessment Notes Treatment Notes Treatment Clinical Notes Sep, Cervical spondylosis (ICD-10 - M47.812) 66 year old male here for follow up status post cervical facet medial branch radiofrequency denervation on the right at C3, C4, C5 and C6 under fluoroscopic guidance. Patient reports 85% pain relief following procedure. He voices complaints of mild neck pain today. Different treatment options were discussed in detail with the patient, overall, he appears to be doing very well and does not require further treatment at this time. I recommend he continue on ROM exercises at home. He is encouraged to call the office if his pain returns. Sep, Left shoulder pain (ICD-10 - M25.512) If his pain persists, we can consider other interventional options in the future Sep, Chronic pain (ICD-10 - G89.29) Patient is encouraged to call the office if symptoms return [facility] Other 05-11-2022 Evaluation note* Encounter Date Diagnosis Assessment Notes Treatment Notes Treatment Clinical Notes August, Cervical spondylosis (ICD-10 - M47.812) 66 year old male here for follow up status post cervical facet medial branch radiofrequency denervation on the left at C3, C4, C5 and C6 under fluoroscopic guidance. Patient reports 70% pain releif and improved ROM following procedure. He voices complaints of mild residual left sided neck pain, denying radicular symptoms. He notes severe left interscapular pain last week while lifting a board. He has not experienced this pain since. He denies any procedure related complications. I discussed different treatment options with the patient and I recommend that he give the procedure more time as it can take up to 6 weeks for maximum relief. In the meantime, he is encouraged to use ice/heat or topical creams as tolerated for pain. August, Left shoulder pain (ICD-10 - M25.512) If his pain persists, we can consider other interventional options in the future August, Chronic pain (ICD-10 - G89.29) Continue with current treatment plan [facility] Other 04-14-2022 Evaluation note* Encounter Date Diagnosis Assessment Notes Treatment Notes Treatment Clinical Notes Jul, Cervical spondylosis (ICD-10 - M47.812) 66 year old male here for follow up status post cervical facet medial branch block left at C3, C4, C5 and C6 under fluoroscopic guidance. Patient reports 85-90% pain relief for 1 day following procedure. He voices continued compaints of neck pain with intermittent radiation down the left arm to the elbow. Different treatment options were discussed in detail with the patient, and I recommend we proceed with a left cervical facet RFA under fluoroscopic guidance. Risks and benefits of procedure explained to patient; patient verbalizes understanding. Jul, Left shoulder pain (ICD-10 - M25.512) If his pain persists, we can consider other interventional options in the future Jul, Chronic pain (ICD-10 - G89.29) Continue with current treatment plan [facility] Other 06-01-2020 History of Present illness Narrative* Dysphagia with MBS was performed in September 2019 which showed pharyngeal dysphagia. He is tolerating aregular diet. He has stable weight MBS from 2019 -shows reduced base of tongue retraction, poor pharyngeal wall squeeze, poor relaxation of UES, no change with head turn or chin tuck, prior 2018 esoph agram with slow clearing of the distal esophagus and pill sticking in the vallecula * Interval History (07/2020): He returns after 2 years because his swallow has continued to worsen. Everything he eats he has to pass with water swallow. He will also struggle with liquids at times, itwill get stuck and then he coughs. No weight loss. Occasional regurgitation, some halitosis. Takes medication with lots of liquid. His voice is hoarse with significant glottal butts. * He delayed his care over the past two years 2/2 to cardiac arrhythmia issues - afib, has a watchmanand loop implant now. Continues to struggle with SVT. Is currently on plavix - is supposed to be done in a couple of weeks. * He did see neurologist - they continue to be without a diagnostic. His biggest symptoms are headaches, TIA, intermittent aphasia. * No swallowing, breathing, laryngospasm, fever, chills, nausea or vomiting. * ROS performed. All other systems are reviewed and are negative for complaint except as noted in HPI. [facility] Work Phone: [phone] History of Present illness Narrative* Dysphagia with MBS was performed in September 2019 which showed pharyngeal dysphagia. He is tolerating aregular diet. He has stable weight MBS from 2020 -shows reduced base of tongue retraction, poor pharyngeal wall squeeze, poor relaxation of UES, no change with head turn or chin tuck, prior 2018 esoph agram with slow clearing of the distal esophagus and pill sticking in the vallecula * Interval History (07/2020): He returns after 2 years because his swallow has continued to worsen. Everything he eats he has to pass with water swallow. He will also struggle with liquids at times, itwill get stuck and then he coughs. No weight loss. Occasional regurgitation, some halitosis. Takes medication with lots of liquid. His voice is hoarse with significant glottal butts. * He delayed his care over the past two years 2/2 to cardiac arrhythmia issues - afib, has a watchmanand loop implant now. Continues to struggle with SVT. Is currently on plavix - is supposed to be done in a couple of weeks. * He did see neurologist - they continue to be without a diagnostic. His biggest symptoms are headaches, TIA, intermittent aphasia. * No swallowing, breathing, laryngospasm, fever, chills, nausea or vomiting. * ROS performed. All other systems are reviewed and are negative for complaint except as noted in HPI. [facility] Work Phone: [phone] History of Present illness Narrative* 67 year old man Dysphagia with MBS was performed in September 2019 which showed pharyngeal dysphagia. Heis tolerating a regular diet. He has stable weight MBS from 2019 -shows reduced base of tongue retraction, poor pharyngeal wall squeeze, poor relaxation of UES, no change with head turn or chin tuck,prior 2018 esophagram with slow clearing of the distal esophagus and pill sticking in the vallecula * 07/31/22: * Referred to me by Dr. Perrin for swallowing issues. He reports about 3 years ago he started having trouble swallowing. He feels like things like liquids and solids are getting hung up in his lower throat/upper chest. Often times he can wash it down but other times he has to cough up food. This occurs about every other meal. Meats are worst but sometimes can occur with water. Getting worse over the past 3 years, episodes more frequent. He does have reflux symptoms, on omeprazole QAM which controls his heartburn. Weight has been steady, would like to lose 15-20 lbs, no weight loss due to swallowing issues. He reports every several months he has aspiration pneumonia, starts with trouble breathing and then gets xray at [facility] and gets antibiotics. About 2 times in the past year * MBS 07/18/22 with cervical plate, narrowed UES but no obvious bar/web, eso screen with decreased primary stripping wave and stasis and intraesophageal regurgitation. * Interval History (07/2020): He returns after 2 years because his swallow has continued to worsen. Everything he eats he has to pass with water swallow. He will also struggle with liquids at times, itwill get stuck and then he coughs. No weight loss. Occasional regurgitation, some halitosis. Takes medication with lots of liquid. His voice is hoarse with significant glottal butts. * He delayed his care over the past two years 2/2 to cardiac arrhythmia issues - afib, has a watchmanand loop implant now. Continues to struggle with SVT. Is currently on plavix - is supposed to be done in a couple of weeks. * He did see neurologist - they continue to be without a diagnostic. His biggest symptoms are headaches, TIA, intermittent aphasia. * No swallowing, breathing, laryngospasm, fever, chills, nausea or vomiting. * PMH/PSH: afib s/p ablations on plavix (due to come off in 2 weeks), thyroidectomy on levothyroxine,ACDF * ROS performed. All other systems are reviewed and are negative for complaint except as noted in HPI. [facility] Work Phone: [phone] History of Present illness Narrative* Dysphagia with MBS was performed in September 2019 which showed pharyngeal dysphagia. He is tolerating aregular diet. He has stable weight MBS from 2019 -shows reduced base of tongue retraction, poor pharyngeal wall squeeze, poor relaxation of UES, no change with head turn or chin tuck, prior 2018 esoph agram with slow clearing of the distal esophagus and pill sticking in the vallecula * returned 2 years later - now with worsened swallow. * He delayed his care over the past two years 2/2 to cardiac arrhythmia issues - afib, has a watchmanand loop implant now. Continues to struggle with SVT. Is currently on plavix - is supposed to be done in a couple of weeks. * neuro issues - He did see neurologist - they continue to be without a diagnostic. His biggest symptoms are headaches, TIA, intermittent aphasia. * Interval History * No swallowing, breathing, laryngospasm, fever, chills, nausea or vomiting. * ROS performed. All other systems are reviewed and are negative for complaint except as noted in HPI. -[facility] [address] Work Phone: [phone] 739-146401-30-2019 History and physical note Author Charlene [facility] April 16, 2023 10:45am Note Date/Time April 16, 2023 10:45am [facility] [address] [place] [address] Gastroenterology H&P Signed Patient: Yoli Antunez Jr MR#: [id number] : 1955 Acct:[id number] Age/Sex: 67 / M Adm Date: 3 Loc: Room: Type: [facility] Attending Dr: Charlene Soria MD Copies to: MD Radha Vicente MD~ Date of Service: 04/16/2023 HISTORY & PHYSICAL: Patient's history with special attention to the cardiovascular, pulmonary systems and the current problem was reviewed with the patient immediately prior to the procedure. Present medications and doses reviewed in the EMR. Allergies and pertinent laboratory tests were also reviewedat this time in the EMR. The physical examination, as below, was then performed. Indication, assessment and HPI: 67 y/o man here for colonoscopy for evaluation of diarrhea Family history of GI malignancy? No PHYSICAL EXAMINATION Mouth and Pharynx : Moist mucus membranes, normal dentition Cardiac: Regular rate, regular rhythm Pulmonary: Clear to auscultation bilaterally, no wheezing Neurological: Alert and oriented x3, no focal deficits noted Abdomen: Abdomen soft, non-tender REVIEW OF SYSTEMS Constitutional: Denies malaise, fevers Cardiovascular: Denies chest pain, palpitations Respiratory: Denies shortness of breath, wheezing Gastrointestinal: Per HPI Genitourinary: Denies dysuria, polyuria Musculoskeletal: Denies joint swelling, joint stiffness Neurological: Denies numbness, tingling Integumentary: Denies rashes, skin lesions Endocrine: Denies fatigue, weight loss Written informed consent obtained from the patient. Risks (including but not limited to perforation, infection, bloating, bleeding, need for emergent surgeryand loss of life), benefits and alternatives explained and questions answered. The patient verbalized understanding. Based on history patient is an appropriate candidate for the procedure. Charlene Soria M.D. Documented By: Charlene Soria MD 04/16/23 104 Signed By: <Electronically signed by Charlene Soria MD> 04/16/231044 [facility] Work Phone: Evaluation noteNo [employer] Other Evaluation note* Diagnosis Gall stone pancreatitis- Primary Acute pancreatitis Acute pancreatitis, unspecified complication status, unspecified pancreatitis type EMELIA (acute kidney injury) (HCC) Acute kidney failure, unspecified CKD (chronic kidney disease) stage 3, GFR 30-59 ml/min (HCC) Chronic kidney disease, Stage III (moderate) Non-intractable vomiting with nausea Jaundice Jaundice, unspecified, not of Lactic acid acidosis Acidosis Hyperglycemia Other abnormal glucose Paroxysmal A-fib (HCC) Atrial fibrillation History of TIA (transient ischemic attack) Transient ischemic attack (TIA), and cerebral infarction without residual deficits History of peptic ulcer Personal history of peptic ulcer disease Apnea History of kidney stones Personal history of urinary calculi Metabolic acidosis Acidosis documented in this encounter [facility] Work Phone: evaluation note* Diagnosis Chronic migraine without aura, intractable, without status migrainosus- Primary Aphasia Other specified transient cerebral ischemias [facility] Chronic migraine without aura, with intractable migraine, so stated, with status migrainosus- Primary [facility] Diagnosis Chronic migraine without aura, with intractable migraine, so stated, with status migrainosus- Primary [facility]* Diagnosis Autonomic dysfunction- Primary Unspecified disorder of autonomic nervous system Dizzy spells Dizziness and giddiness [facility] Diagnosis Diarrhea, unspecified type- Primary Left lower quadrant abdominal pain documented in this encounter [facility] Work Phone: Evaluation note* Diagnosis Disturbance of skin sensation- Primary [facility]* Diagnosis Left lower quadrant abdominal pain documented in this encounter [facility] Work Phone: Evaluation note* Diagnosis Dysphagia, oropharyngeal phase Dysphagia, unspecified Diaphragmatic hernia without obstruction or gangrene Diaphragmatic hernia without mention of obstruction or gangrene Other diseases of stomach and duodenum Polyp of stomach and duodenum Gastro-esophageal reflux disease without esophagitis Hypertensive chronic kidney disease with stage 1 through stage 4 chronic kidney disease, or unspecified chronic kidney disease Chronic kidney disease, stage 3 unspecified (CMS/HCC) Chronic atrial fibrillation, unspecified (CMS/HCC) Obstructive sleep apnea (adult) (pediatric) 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, unspecified care home (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 of antithrombotics/antiplatelets 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 Work Phone: Evaluation note* Diagnosis Obstructive sleep apnea (adult) (pediatric) Sleep apnea, unspecified Dysphagia, unspecified Diaphragmatic hernia without obstruction or gangrene Diaphragmatic hernia without mention of obstruction or gangrene Gastro-esophageal reflux disease without esophagitis Chronic atrial fibrillation, unspecified (CMS/HCC) Hypertensive chronic kidney disease with stage 1 through stage 4 chronic kidney disease, or unspecified chronic kidney disease Chronic kidney disease, stage 3 unspecified (CMS/HCC) Paralysis of vocal cords and larynx, bilateral 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, unspecified Arthrodesis status Personal history of transient ischemic attack (TIA), and cerebral infarction without residual deficits Presence of artificial knee joint, bilateral Personal history of nicotine dependence 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 Work Phone: Evaluation noteNo assessment information available [facility] Work Phone: History general Narrative - Reported* Type Description Date Medical History 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 Medical History restless leg syndrome Medical History Hypertension Medical History TIA Medical History Bleeding ulcers Medical History GOUT Medical History LEFT EYE VITREOUS HEMORRAGE Surgical History Cervical disc surgery Surgical History Procedure:L4-5 LAMINECTOMY;Dise ase: Surgical History knee replacement bilateral Surgical History Procedure:Appendectomy;Disease: Surgical History Procedure:RIGHT PARTIAL KNEE RE PAIR;Disease: Surgical History tonsillectomy Surgical History Procedure:MULTIPLE BIOPSIES AND EMG'S;Disease: Surgical History wisdom teeth Surgical History colonoscopy Surgical History cortisteroid lumbar injections 08/12/14 Surgical History appendectomy Surgical History C3,4,and 5 have plates Surgical History Left partial knee replacement Surgical History lumbar laminectomy Surgical History EGD 2 years ago Surgical History Reattach left retina 09/2017 Surgical History Heart Cath 05/02/18 Surgical History Total Substernal Thyroidectomy 09/24/2018 Surgical History EGD with dilatation 01/08 Surgical History left ureteral stent placement 1 Surgical History steel removed from left eye 04/23 Hospitalization History see above Hospitalization History cardiac [facility] Other History of Present illness Narrative* Patient reports improved following of safe swallow guidelines, with need to increase more especially regarding avoidance of mixed consistencies and consistently tucking his chin with all swallows. * Reviewed the following along with ideas to increase habituation: * 1. Regular diet with thin liquids * 2. Avoid mixed consistencies and straws * 3. Small sips only at a slow rate * 4. Chin tuck head posture during swallows * Patient reports daily practice of the following exercises at least 3 times a day: * 1. Lingual press * 2. Lisbeth maneuver * 3. Gargling exercise * 4. Laryngeal elevation (Shaker) exercise * 5. Effortful swallow * He states he has not noticed much improvement in his swallow function. Monitored performance this date with HEP. Gargling without water triggered coughing which led to significant speech changes. Patient's speech became dysarthric with disfluencies. He stated this happens 1-2 times a day and not always triggered by coughing or voice use. He states he is working with neurology to determine it's etiology. Encouraged in to avoid walking or driving until the episode passes. he states it can last a few minutes - several hours. * Encouraged patient to avoid any of the above exercises if they frequently trigger such an event. Otherwise patient instructed to continue to practice several times a day and contact clinician with any concerns. [facility] [address] [place] Work Phone: History of Present illness Narrative* Mr. ANTUNEZ , 1955, referred for an initial consultation with me but established with this practice, with a long history of waking up feeling unrefreshed, excessive daytime fatigue. * [place] Sleepiness Scale Score is 16 /24. Fatigue Severity Scale Score is 54 /63. Snoring VAS 3 /10 * Sleep study histories: (personally reviewed raw data such as interpretation report, data sheet, hypnogram, and titration table)The patient has been previously diagnosed with obstructive sleep apnea (ADA), in a sleep test performed on 07/12/2020, that showed an Apnea Hypopnea Index (AHI) of 18.5 events per hour. During that night, the lowest 02 saturation was 86 %, and the patient spent 1.7% of total sleep time with 02 sat less than 90%. The apnea index (AI) was 3.4 events per hour. During supinesleep the AHI was 86.4 events per hour (Not enough supine sleep though, 2%) * Patient was prescribed CPAP; however, he has had lots of issues with CPAP use including choking at night and difficulty with the mask. * Patient's ENT history is also notable for currently being worked up with our laryngology colleaguesfor dysphagia, glottic insufficiency, and vocal fold paresis. * For nocturnal symptoms he reports choking if laying in his back * Patient does not report nasal obstruction. * NOSE- 0 / 20 * Nasal Obstruction VAS- 0/10 [id number] [id number] Work Phone: Hospital Discharge instructions Additional Instructions DISCHARGE INSTRUCTIONS FOR COLONOSCOPY WHAT TO EXPECT: - You may feel full, gassy or cramping after your procedure. In some cases, this may be from a few hours to a day. Walking may help relieve the discomfort. - If you have polyp(s) removed you may note some minor bloody discharge after your first bowel movements. - You should begin to recover from anesthesia within 1 hour of the procedure, however may feel groggy for the next 24 hours. DO's AND DON'Ts: - Call your doctor right away if you have a hard abdomen, severe pain, are passing lots of bright red blood or clots. - Call your doctor if you develop any rashes, hives or difficulty breathing. - Let your doctor know if you have not had a bowel movement by 3 days after your procedure. - If you take 81 mg aspirin for your heart it is safe to resume this medication. - If you take other blood thinner medications your doctor will instruct you when these can safely be resumed. - Do NOT drive for 24 hours. - Do NOT operate machinery such as power tools, lawn mowers, snow blowers, sewing machines, etc. for 24 hours. - Avoid alcoholic beverages and drugs for allergies, nerves, or sleep. - Do NOT stay alone. Do NOT leave your child unattended. - Do NOT make important personal or business decisions or sign any legal documents. - Eat solid foods and drink liquids in smaller amounts than usual until normal appetite returns. If you should experience an upset stomach, liquids high in sugar content (soda, Lance-Aid, non-acid juices) are recommended. - You can resume normal activities tomorrow. Recommendations: -Repeat colonoscopy due to inadequate prep -Follow up pathology -Follow up in the [facility] Work Phone: Summary Purpose Family History No Family History Records FoundUnknown Family Member Name Dates Details Family history of lung cance r: Mother, Father(V16.1, Z80.1) Status:Active Unknown Family Member Name Dates Details Family history of lung cance r: Mother, Father(V16.1, Z80.1) Status:Active Unknown Family Member Name Dates Details Family history of lung cance r: Mother, Father(V16.1, Z80.1) Status:Active Relationship Condition Age at Onset Recorded Date/T tavia father Abdominal aortic aneurysm (AAA) Unknown Malignant neoplasm of lung Unknown Not Specified Malignant neoplasm of lung Unknown Advance Directives No Advanced Directives Records FoundDocuments on File Type Date Recorded 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 Thi s is the code status chosen by the patient/surrogate. Advance Directive Response Recorded Date/ Time Advance Directives No April 29, 2018 9:44am History of Present Illness * Keyonna Freitas RN - 03/11/2020 3:00 PM EST Pt medicated per protocol. Education Given on each drug and pt stated understanding. IV removed prior to leaving. Pt educated on if symptoms get worse to seek help. Pt left unit via ambulatory. * Keyonna Freitas RN - 03/11/2020 10:00 AM EST Pt arrived to unit via ambulatory. Pt's vitals per flowsheet. 20g in R forearm. Pt stating headache5-6/10. Pt placed on tele and educated on calling for nurse for OOB. Fluids started per protocol. Call light within reach. Will continue to monitor. documented in this encounter Reason for Referral Specialty Diagnoses / Procedures Referred By Contac t Referred To Contact Radiology Diagnoses Left lower quadrant abdominal pain Procedures CT abdomen pelvis w IV contrast Yossi Chen MD [address] [facility] [address], [address] [place] [address] Referral ID Status Reason Start Date Expiration Date Visits Requested Visits Authorized [id number] Authorized Perform Procedure 3 07/30/2023 1 1 Specialty Diagnoses / Procedures Referred By Contac t Referred To Contact Neurology Diagnoses Autonomic dysfunction Dizzy spells Procedures CONSULT TO NEUROLOGY OFFICE/OUTPATIENT [facility] 60-74 MINUTES Sarbjit Richardson, BRENNA.ADMINISTRATIVE DIRECTOR [address] [place] [address] Referral ID Status Reason Start Date Expiration Date Visits Requested Visits Authorized [id number] Authorized PCP Requested Referral 12/31/2022 12/31/2023 1 1 Specialty Diagnoses / Procedures Referred By Contac t Referred To Contact MR IMAGING Diagnoses Chronic migraine without aura, intractable, without status migrainosus Aphasia Other specified transient cerebral ischemias Procedures MRV BRAIN WO IVCON MRA, HEAD W/O CONTRAST Sarbjit Richardson, TREATING PLANT OPERATOR.ADMINISTRATIVE DIRECTOR [address] [place] [address] Mr Imaging Referral ID Status Reason Start Date Expiration Date Visits Requested Visits Authorized [id number] Pending Review Auto-Generat ed Referral 05/31/2022 06/30/2023 1 1 Specialty Diagnoses / Procedures Referred By Contac t Referred To Contact MR IMAGING Diagnoses Chronic migraine without aura, intractable, without status migrainosus Aphasia Other specified transient cerebral ischemias Procedures MRA BRAIN WO IVCON MRA, HEAD W/O CONTRAST Sarbjit Richardson, TREATING PLANT OPERATOR.ADMINISTRATIVE DIRECTOR [address] [place] [address] Mr Imaging Referral ID Status Reason Start Date Expiration Date Visits Requested Visits Authorized [id number] Pending Review Auto-Generat ed Referral 05/31/2022 06/30/2023 1 1 Medications Administered Section Inactive Administered Medications - up to 3 most recent administrations Medication Order MAR Action Action Date Dose Rate Site betamethasone acetate-betamethasone sodium phosphate 6 mg injection (CELESTONE) 6 mg, OTHER, ONCE, 1 dose, On Sis 05/31/22 at 1700, Protect From Light. Given 05/31/2022 5:00 PM EST 6 mg Other ropivacaine (PF) 5 mg/mL (0.5 %) 50 mg injection (NAROPIN) 50 mg (10 mL), OTHER, ONCE, 1 dose, On Sis 05/31/22 at 0930 Given 05/31/2022 9:30 AM EST 50 mg Other Inactive Administered Medications - up to 3 most recent administrations Medication Order MAR Action Action Date Dose Rate Site eptinezumab-jjmr 100 mg in NaCl 0.9% 100 mL (VYEPTI) 100 mg, INTRAVENOUS, at 200 mL/hr, Administer over 30 Minutes, ONCE, 1 dose, On [facility] 07/26/22 at 1330, EXP: Administer with 0.2 micron filter. New Bag/Syringe/Bottle 07/26/2022 1:37 PM EDT 100 mg 200 mL/hr Inactive Administered Medications - up to 3 most recent administrations Medication Order MAR Action Action Date Dose Rate Site eptinezumab-jjmr 100 mg in NaCl 0.9% 100 mL (VYEPTI) 100 mg, INTRAVENOUS, at 200 mL/hr, Administer over 30 Minutes, ONCE, 1 dose, On [facility] 10/18/22 at 1400, EXP: Administer with 0.2 micron filter. New Bag/Syringe/Bottle 10/18/2022 2:02 PM EDT 100 mg 200 mL/hr Chief Complaint SwallowSwallowSwallowFollow up visit for inability to tolerate CPAPSwallow Patient is here for post opPatient is here for follow up Chief Complaint and Reason for Visit Chief Complaint Diarrhea Additional Source Comments (unrecognized sect ion and content) No Status Records FoundNo Status Records FoundNo Status Records FoundNo Status Records FoundNo Status Records FoundNo Status Records FoundNo Status Records FoundNo Status Records FoundNo Status Records FoundNo Status Records FoundNo Status Records FoundNo Status Records FoundNo Status Records FoundNo Status Records FoundNo Status Records FoundNo Status Records FoundNo Status Records FoundNo Status Records FoundNo Status Records FoundNo Status Records Found INFORMATION SOURCE (unrecogn ized section and content) DATE CREATED AUTHOR 05/02/2018 [facility] DATE CREATED AUTHOR AUTHOR'S ORGANIZ ATION 03/12/2020 [facility] DATE CREATED AUTHOR AUTHOR'S ORGANIZ ATION 10/28/2020 [facility] DATE CREATED AUTHOR AUTHOR'S ORGANIZ ATION 05/25/2021 [facility] DATE CREATED AUTHOR AUTHOR'S ORGANIZ ATION 12/23/2021 [facility] DATE CREATED AUTHOR AUTHOR'S ORGANIZ ATION 01/17/2022 [facility] DATE CREATED AUTHOR AUTHOR'S ORGANIZ ATION 04/18/2022 [facility] dical Specialist DATE CREATED AUTHOR AUTHOR'S ORGANIZ ATION 06/07/2022 [facility] DATE CREATED AUTHOR AUTHOR'S ORGANIZ ATION 08/28/2022 [facility] DATE CREATED AUTHOR AUTHOR'S ORGANIZ ATION 10/26/2022 [facility] DATE CREATED AUTHOR AUTHOR'S ORGANIZ ATION 12/14/2022 [facility] DATE CREATED AUTHOR AUTHOR'S ORGANIZ ATION 12/14/2022 [facility] DATE CREATED AUTHOR AUTHOR'S ORGANIZ ATION 12/18/2022 [facility] DATE CREATED AUTHOR AUTHOR'S ORGANIZ ATION 02/02/2023 [facility] DATE CREATED AUTHOR AUTHOR'S ORGANIZ ATION 02/06/2023 [facility] DATE CREATED AUTHOR AUTHOR'S ORGANIZ ATION 02/09/2023 [facility] DATE CREATED AUTHOR AUTHOR'S ORGANIZ ATION 02/26/2023 [facility] DATE CREATED AUTHOR AUTHOR'S ORGANIZ ATION 04/26/[address] [facility] DATE CREATED AUTHOR AUTHOR'S ORGANIZ ATION 05/04/2023 [facility] dical Specialists [facility] DATE CREATED AUTHOR AUTHOR'S ORGANIZ ATION 05/08/2023 [facility] Reason for Visit (unrecogniz ed section and content) Reason Comments Infusion Headache Specialty Diagnoses / Procedures Referred By Contac t Referred To Contact Diagnoses Chronic migraine without aura, with intractable migraine, so stated, with status migrainosus Sarbjit Richardson, TREATING PLANT OPERATOR.ADMINISTRATIVE DIRECTOR [address] [place] [address] Neur Headache Main [address] [place] [address] Referral ID Status Reason Start Date Expiration Date V isits Requested Visits Authorized [id number] Authorized 05/31/2022 08/29/2022 99 99 Status Reason Specialty Diagnoses / Procedures Referred By Contact Referred To Contact Pending Review Infusion Therapy Diagnoses Migraine, unspecified, intractable, without status migrainosus Procedures OH INJ MAGNESIUM SULFATE OH LIDOCAINE INJECTION [place] DEXAMETHASONE SODIUM PHOS OH DRUGS UNCLASSIFIED INJECTION BeMayelin brothers MD [address] [place] [address] Mal Op Infusion [address] [place] [address] Reason Comments Headache Reason Comments Received Outside Medical Records Reason Comments Results [facility] Reason Comments Follow-up Diarrhea Since hiatal hernia surgery. Reason Comments Results [facility] Specialty Diagnoses / Procedures Referred By Contac t Referred To Contact Radiology Diagnoses Left lower quadrant abdominal pain Procedures CT abdomen pelvis w IV contrast Yossi Chen MD [address] [facility] [address] [facility] [address] [place] [address] Referral ID Status Reason Start Date Expiration Date Visits Requested Visits Authorized [id number] Authorized Perform Procedure 3 07/30/2023 1 1 Reason Comments Other EGDANS - Emailed pre p on 08-23-2022 Reason Comments Other DRUG INDUCED SLEEP E NDOSCOPY Ordered Prescriptions (unrec ognized section and content) Prescription Sig Dispensed Refills Start Date End Da te ondansetron (ZOFRAN) 4 MG tablet Take 1 tablet by mouth daily as needed for Nausea or Vomiting 30 tablet 0 01/05/2022 metroNIDAZOLE (FLAGYL) 500 MG tablet Take 1 tablet by mouth every 8 hours for 2 days 6 tablet 0 01/05/2022 01/07/2022 ciprofloxacin (CIPRO) 500 MG tablet Take 1 tablet by mouth every 12 hours for 2 days 4 tablet 0 01/05/2022 01/07/2022 dilTIAZem (CARDIZEM CD) 120 MG extended release capsule Take 1 capsule by mouth daily 30 capsule 3 01/05/2022 oxyCODONE-acetaminophen (PERCOCET) 5-325 MG per tabletIndications:Acute pancreatitis, unspecified complication status, unspecified pancreatitis type Take 1 tablet by mouth every 8 hours as needed for Pain for up to 3 days. 15 tablet 0 01/05/2022 01/08/2022 metroNIDAZOLE (FLAGYL) 500 MG tablet Take 1 tablet by mouth every 8 hours for 15 doses 15 tablet 0 01/03/2022 01/05/2022 ciprofloxacin (CIPRO) 500 MG tablet Take 1 tablet by mouth every 24 hours for 5 doses 5 tablet 0 01/03/2022 01/05/2022 Scheduled Active and Recently Administ ered Medications (unrecognized section and content) Medication Order 01/03/2022 01/04/2022 01/05/2022 apixaban (ELIQUIS) tablet 5 mg 5 mg, Oral, 2 TIMES DAILY, First dose on Sat01/03/22 at 2100, Until Discontinued, Indication of Use: A Fib/A Flutter, ANTICOAGULANT 0026 (Given - Provider: Ritu Sosa RN)0855 (Given - Provider: Soco Hdez RN)2034 (Given - Provider: Agata Garcia RN) 0853 (Given - Provider: Patty Evans)2100 (Due) ciprofloxacin (CIPRO) tablet 500 mg (CANCELED) 500 mg, Oral, EVERY 24 HOURS SCHEDULED (Daily), 5 doses, First dose (after last reorder) on Sat01/03/22 at 0900, Last dose on Sat01/07/22 at 0900, Antimicrobial Indications: Other, Other Abx Indication: acute infected cholecystitis, Dose adjusted for renal function. Do not take with dairy products or calcium-fortified juices. Tube feeding (TF) interaction, obtain physician order to manage. Recommend holding TF for 1 hr before and 1 hr after dose. Due to decreased absorption do not give by J tube. 0806 (Given - Provider: Roly Delong RN) 0855 (Given - Provider: Soco Hdez, CARLOS) 0853 (Given - Provider: Patty Evans) ciprofloxacin (CIPRO) tablet 500 mg 500 mg, Oral, EVERY 12 HOURS SCHEDULED (2 times per day), 6 doses, First dose on Sat01/05/22 at 2100, Last dose on Sat01/08/22 at 0900, Antimicrobial Indications: Other, Other Abx Indication: actute infected cholecystitis, Do not take with dairy products or calcium-fortified juices. Tube feeding (TF) interaction, obtain physician order to manage. Recommend holding TF for 1 hr before and 1 hr after dose. Due to decreased absorption do not give by J tube. 2100 (Due) dilTIAZem (CARDIZEM CD) extended release capsule 120 mg 120 mg, Oral, DAILY, First dose on Sat01/03/22 at 0900, Until Discontinued, Do not crush or break. 1039 (Given - Provider: Roly Delong RN) 2033 (Given - Provider: Agata Garcia RN) 2099 (Due - Provider: Soco Hdez, CARLOS) labetalol (NORMODYNE;TRANDATE) injection 20 mg (COMPLETED) 20 mg, IntraVENous, ONCE, 1 dose, On Sis 01/04/22 at 0400, Do not administer if HR less than 60 0357 (Given - Provider: Ritu Sosa RN) levothyroxine (SYNTHROID) tablet 150 mcg 150 mcg, Oral, DAILY, First dose on Sat01/03/22 at 0900, Until Discontinued, Tube feeding (TF) interaction, obtain physician order to manage, recommend holding TF for 30 minutes before and after dose. 1038 (Given - Provider: Roly Delong RN) 2032 (Given - Provider: Agata Garcia, CARLOS) 2099 (Due - Provider: Soco Hdez, CARLOS) metronidazole (FLAGYL) 500 mg in 0.9% NaCl 100 mL IVPB premix (COMPLETED) 500 mg, IntraVENous, EVERY 8 HOURS, 3 doses, First dose on Sat01/02/22 at 1530, Last dose on Sat01/03/22 at 0730, Antimicrobial Indications: Surgical Prophylaxis 0049 (Stopped - Provider: Ritu Sosa RN)0806 (New Bag - Provider: Roly Delong RN)09 (Stopped - Provider: Roly Delong RN) metroNIDAZOLE (FLAGYL) tablet 500 mg 500 mg, Oral, EVERY 8 HOURS SCHEDULED (3 times per day), 15 doses, First dose on Sat01/03/22 at 2100, Last dose on Sat01/08/22 at 1400, Antimicrobial Indications: Other, Other Abx Indication: acute infected cholecystitis 2027 (Given - Provider: Ritu Sosa RN) 428 (Given - Provider: Ritu Sosa RN)144 (Given - Provider: Soco Hdez RN)2204 (Given - Provider: Agata Garcia RN) 0537 (Given - Provider: Agata Garcia RN)135 (Given - Provider: Patty Evans)2199 (Due) pramipexole (MIRAPEX) tablet 2 mg 2 mg, Oral, NIGHTLY, First dose (after last modification) on Sis 01/04/22 at 2100, Until Discontinued, Give 2-3 hours before bedtime. 2099 (Given - Provider: Ritu Sosa RN) 2032 (Given - Provider: Agata Garcia RN) 2099 (Due) sodium chloride flush 0.9 % injection 5-40 mL 5-40 mL, IntraVENous, EVERY 12 HOURS SCHEDULED (2 times per day), First dose on Sat01/01/22 at 0900, Until Discontinued, For Line Patency: Peripheral IV = 5 mL; Midline or Central Line = 10 mL/lumen. If following IV push medication, administer flush at same rate as the IV push. Flush volume is determined by type of infusion therapy being given. For non-viscous solutions use: Peripheral IV = 5 mL Midline or Central Line = 10 mL/lumen For viscous solutions (i.e. blood components, parenteral nutrition, contrast media, or after obtaining blood sample) use: Peripheral IV = 10 mL Midline or Central Line = 20 mL/lumen 0743 (Not Given - Provider: Roly Delong RN - Reason: Contraindicated)2028 (Given - Provider: Ritu Sosa RN) 09 (Not Given - Provider: Soco Hdez RN - Reason: IV Fluid Infusing)2032 (Not Given - Provider: Agata Garcia RN - Reason: IV Fluid Infusing) 0904 (Not Given - Provider: Soco Hdez RN - Reason: IV Fluid Infusing)2100 (Due) Continuous Medication Order 01/03/2022 01/04/2022 01/05/2022 0.9 % sodium chloride infusion (CANCELED) IntraVENous, at 100 mL/hr, CONTINUOUS, Starting on Sis 01/04/22 at 1315 1327 (New Bag - Provider: Soco Hdez RN) 1523 (Stopped - Provider: Soco Hdez RN) lactated ringers infusion (CANCELED) IntraVENous, at 150 mL/hr, CONTINUOUS, Starting on Sat01/01/22 at 1200 0355 (New Bag - Provider: Ritu Sosa RN) sodium bicarbonate 75 mEq in sodium chloride 0.45 % 1,000 mL infusion (CANCELED) IntraVENous, at 100 mL/hr, CONTINUOUS, Starting on Sat01/03/22 at 1130 1239 (New Bag - Provider: Roly Delong RN) 0027 (New Bag - Provider: Ritu Sosa RN)1125 (New Bag - Provider: Soco Hdez RN) PRN Medication Order 01/03/2022 01/04/2022 01/05/2022 0.9 % sodium chloride infusion IntraVENous, at 5-250 mL/hr, PRN, if patient receiving piggyback infusions and maintenance fluids are not ordered OR KVO fluids to protect IV site / prevent frequent line interruptions/ long duration, Starting on Sat12/31/21 at 2333, For piggyback infusion, administer at same rate as piggyback for a total of 25 mL. Enter 25 mL into dose field and piggyback rate into rate field of order. If piggyback is infusing at a rate less than 100 mL/hr, enter 25 mL into dose field and 100 mL/hr into rate field of order. For KVO fluids, enter rate of 20 mL/hr or less into rate field of order. HYDROmorphone (DILAUDID) injection 0.25 mg(Linked Group 1) HYDROmorphone (DILAUDID) 1.5mg IV is equivalent to morphine 10mg IV, 0.25 mg, IntraVENous, EVERY 3 HOURS PRN, Starting on Sat01/02/22 at 1730, Until Discontinued, Pain Moderate (4-6), If oral and IV narcotics ordered, use oral first and only use IV if oral is ineffective or cannot take oral. Do Not give oral and IV within 1 hour of each other unless specifically ordered. HYDROmorphone (DILAUDID) injection 0.5 mg(Linked Group 1) HYDROmorphone (DILAUDID) 1.5mg IV is equivalent to morphine 10mg IV, 0.5 mg, IntraVENous, EVERY 2 HOURS PRN, Starting on Sat01/02/22 at 1730, Until Discontinued, Pain Severe (7-10), If oral and IV narcotics ordered, use oral first and only use IV if oral is ineffective or cannot take oral. Do Not give oral and IV within 1 hour of each other unless specifically ordered. ondansetron (ZOFRAN) injection 4 mg(Linked Group 2) 4 mg, IntraVENous, EVERY 6 HOURS PRN, Starting on Sat12/31/21 at 2333, Until Discontinued, Nausea, Vomiting, Administer if oral route cannot be used. ondansetron (ZOFRAN-ODT) disintegrating tablet 4 mg(Linked Group 2) 4 mg, Oral, EVERY 8 HOURS PRN, Starting on Sat12/31/21 at 2333, Until Discontinued, Nausea, Vomiting oxyCODONE-acetaminophen (PERCOCET) 5-325 MG per tablet 1 tablet(Linked Group 3) Mg/kg dosing is based on the oxycodone component., 1 tablet, Oral, EVERY 4 HOURS PRN, Starting on Sat01/02/22 at 2245, Until Discontinued, Pain Moderate (4-6), Maximum dose of acetaminophen is 4000 mg from all sources in 24 hours. 0353 (Given - Provider: Ritu Sosa RN)0806 (See Alternative - Provider: Roly Delong RN)1238 (Given - Provider: Roly Delong RN)1700 (Given - Provider: Roly Delong RN) 0429 (Given - Provider: Ritu Sosa RN)1028 (Given - Provider: Soco Hdez RN)1456 (Given - Provider: Soco Hdez RN)2206 (Given - Provider: Agata Garcia RN) 0326 (Given - Provider: Agata Garcia RN)0716 (Given - Provider: Agata Garcia RN)1338 (Given - Provider: Soco Hdez RN) oxyCODONE-acetaminophen (PERCOCET) 5-325 MG per tablet 2 tablet(Linked Group 3) Mg/kg dosing is based on the oxycodone component., 2 tablet, Oral, EVERY 4 HOURS PRN, Starting on Sat01/02/22 at 2245, Until Discontinued, Pain Severe (7-10), Maximum dose of acetaminophen is 4000 mg from all sources in 24 hours. 0353 (See Alternative - Provider: Ritu Sosa RN)0806 (Given - Provider: Roly Delong RN)1238 (See Alternative - Provider: Roly Delong RN)1700 (See Alternative - Provider: Roly Delong RN) 0429 (See Alternative - Provider: Ritu Sosa RN)1028 (See Alternative - Provider: Soco Hdez RN)1456 (See Alternative - Provider: Soco Hdez RN)2206 (See Alternative - Provider: Agata Garcia RN) 0326 (See Alternative - Provider: Agata Garcia RN)0716 (See Alternative - Provider: Agata Garcia RN)1338 (See Alternative - Provider: Soco Hdez RN) sodium chloride flush 0.9 % injection 5-40 mL 5-40 mL, IntraVENous, PRN, Starting on Sat12/31/21 at 2333, Until Discontinued, Line Care, After every IV line use, For Line Patency: Peripheral IV = 5 mL; Midline or Central Line = 10 mL/lumen. If following IV push medication, administer flush at same rate as the IV push. Flush volume is determined by type of infusion therapy being given. For non-viscous solutions use: Peripheral IV = 5 mL Midline or Central Line = 10 mL/lumen For viscous solutions (i.e. blood components, parenteral nutrition, contrast media, or after obtaining blood sample) use: Peripheral IV = 10 mL Midline or Central Line = 20 mL/lumen Linked Groups Order Group 1: HYDROmorphone (DILAUDID) injection 0.25 mgJump to med HYDROmorphone (DILAUDID) 1.5mg IV is equivalent to morphine 10mg IV
0.25 mg, IntraVENous, EVERY 3 HOURS PRN, Starting on Sat01/02/22 at 1730, Until Discontinued, Pain Moderate (4-6)
If oral and IV narcotics ordered, use oral first and only use IV if oral is ineffective or cannot take oral. Do Not give oral and IV within 1 hour of each other unless specifically ordered.
Or HYDROmorphone (DILAUDID) injection 0.5 mgJump to med HYDROmorphone (DILAUDID) 1.5mg IV is equivalent to morphine 10mg IV
0.5 mg, IntraVENous, EVERY 2 HOURS PRN, Starting on Sat01/02/22 at 1730, Until Discontinued, Pain Severe (7-10)
If oral and IV narcotics ordered, use oral first and only use IV if oral is ineffective or cannot take oral. Do Not give oral and IV within 1 hour of each other unless specifically ordered.
Group 2: ondansetron (ZOFRAN-ODT) disintegrating tablet 4 mgJump to med 4 mg, Oral, EVERY 8 HOURS PRN, Starting on Sat12/31/21 at 2333, Until Discontinued, Nausea, Vomiting Or ondansetron (ZOFRAN) injection 4 mgJump to med 4 mg, IntraVENous, EVERY 6 HOURS PRN, Starting on Sat12/31/21 at 2333, Until Discontinued, Nausea, Vomiting
Administer if oral route cannot be used.
Group 3: oxyCODONE-acetaminophen (PERCOCET) 5-325 MG per tablet 1 tabletJump to med Mg/kg dosing is based on the oxycodone component.
1 tablet, Oral, EVERY 4 HOURS PRN, Starting on Sat01/02/22 at 2245, Until Discontinued, Pain Moderate (4-6)
Maximum dose of acetaminophen is 4000 mg from all sources in 24 hours.
Or oxyCODONE-acetaminophen (PERCOCET) 5-325 MG per tablet 2 tabletJump to med Mg/kg dosing is based on the oxycodone component.
2 tablet, Oral, EVERY 4 HOURS PRN, Starting on Sat01/02/22 at 2245, Until Discontinued, Pain Severe (7-10)
Maximum dose of acetaminophen is 4000 mg from all sources in 24 hours.
Care Teams (unrecognized sec tion and content) Electronic Communications Technician Relationship Specialty [place] [address] [place] [address] [id number] PCP - General Family Medicine 10/01/17 Electronic Communications Technician Relationship Specialty [place] [address] [place] [address] [phone] PCP - General Internal Medicine 01/14/20 Esther Grey, DO [address] [place] [address] Physician Electrophysiology 01/26/20 Electronic Communications Technician Relationship Specialty Start Date End Date Radha Burris [address] [place] [phone] PCP - General Family Medicine 10/09/17 Elian Ceballos MD [address] [place] [address] Primary Staff Physician Cardiology 12/01/20 Herminia Roland MD [address] [address] Primary Staff Physician Cardiology 02/01/21 Electronic Communications Technician Relationship Specialty Start Date End Date Radha Burris [address] [place] [phone] PCP - General Family Medicine 10/09/17 Elian Ceballos MD [address] [place] [address] Primary Staff Physician Cardiology 12/01/20 Herminia Roland MD [address] [place] [address] Primary Staff Physician Cardiology 02/01/21 Electronic Communications Technician Relationship Specialty Start Date End Date FatumaRadha cantu [address] [facility] [place] [address] PCP - General Family Medicine 10/09/17 Elian Ceballos MD [address] [place] [address] Primary Staff Physician Cardiology 12/01/20 Herminia Roland MD [address] [place] [address] Primary Staff Physician Cardiology 02/01/21 Electronic Communications Technician Relationship Specialty Start Date End Date Radha Burris [address] [place] [phone] PCP - General Family Medicine 10/09/17 Elian Ceballos MD [address] [place] [address] Primary Staff Physician Cardiology 12/01/20 Herminia Roland MD [address] [place] [address] Primary Staff Physician Cardiology 02/01/21 Electronic Communications Technician Relationship Specialty Start Date End Date Radha Burris [address] [place] [address] PCP - General Family Medicine 10/09/17 Elian Ceballos MD [address] [place] [address] Primary Staff Physician Cardiology 12/01/20 Herminia Roland MD [address] [place] [address] Primary Staff Physician Cardiology 02/01/21 Electronic Communications Technician Relationship Specialty Start Date End Date FatumaRadha Tono [address] [place] [phone] PCP - General Family Medicine 10/09/17 Elian Ceballos MD [address] [place] [address] Primary Staff Physician Cardiology 12/01/20 Herminia Roland MD [address] [place] [address] Primary Staff Physician Cardiology 02/01/21 Electronic Communications Technician Relationship Specialty Start Date End Date FatumaRadha cantu [address] [place] [phone] PCP - General Family Medicine 10/09/17 Elian Ceballos MD [address] [place] [address] Primary Staff Physician Cardiology 12/01/20 Herminia Roland MD [address] [place] [address] Primary Staff Physician Cardiology 02/01/21 Electronic Communications Technician Relationship Specialty Start Date End Date Radha Burris [address] [place] [phone] PCP - General Family Medicine 10/09/17 Elian Ceballos MD [address] [place] [address] Primary Staff Physician Cardiology 12/01/20 Herminia Roland MD [address] [place] [address] Primary Staff Physician Cardiology 02/01/21 Electronic Communications Technician Relationship Specialty Start Date End Date Radha Burris [address] [place] [phone] PCP - General Family Medicine 10/09/17 Elian Ceballos MD [address] [place] [address] Primary Staff Physician Cardiology 12/01/20 Herminia Roland MD [address] [place] [address] Primary Staff Physician Cardiology 02/01/21 Electronic Communications Technician Relationship Specialty Start Date End Date Radha Burris [address] [place] [address] PCP - General Family Medicine 10/09/17 Elian Ceballos MD [address] [place] [address] Primary Staff Physician Cardiology 12/01/20 Herminia Roland MD [address] [place] [address] Primary Staff Physician Cardiology 02/01/21 Electronic Communications Technician Relationship Specialty Start Date End Date Radha Burris [address] [place] [address] PCP - General Family Medicine 10/09/17 Elian Ceballos MD [address] [place] [address] Primary Staff Physician Cardiology 12/01/20 Herminia Roland MD [address] [place] [address] Primary Staff Physician Cardiology 02/01/21 Electronic Communications Technician Relationship Specialty Start Date End Date Radha Burris MD [address] [phone] PCP - General 03/22/20 Electronic Communications Technician Relationship Specialty Start Date End Date Radha Burris [address] [place] [address] PCP - General Family Medicine 10/09/17 Elian Ceballos MD [address] [place] [address] Primary Staff Physician Cardiology 12/01/20 Herminia Roland MD [address] [place] [address] Primary Staff Physician Cardiology 02/01/21 Electronic Communications Technician Relationship Specialty Start Date End Date Radha Burris [address] [place] [address] PCP - General Family Medicine 10/09/17 Elian Ceballos MD [address] [place] [address] Primary Staff Physician Cardiology 12/01/20 Herminia Roland MD [address] [place] [address] Primary Staff Physician Cardiology 02/01/21 Electronic Communications Technician Relationship Specialty Start Date End Date Radha Burris MD [address] [place] [phone] PCP - General 03/22/20 Electronic Communications Technician Relationship Specialty Start Date End Date Radha Burris MD [address] [place] [address] PCP - General 03/22/20 Electronic Communications Technician Relationship Specialty Start Date End Date Radha Burris MD [address] [place] [phone] PCP - General 03/22/20 Team Status: Active Member Role Status Dates Radha Burris MD Primary Care Provide r Active Team Status: Inactive Member Role Status Dates Radha Burris MD Primary Care Provide r Active Charlene Soria MD Attending Provider Active Source Comments (unrecognize d section and content) In the event this informatio n is protected by the Federal Confidentiality of Alcohol and Drug Abuse Patient Records regulations: The Federal rules restrict any use of the information to criminally investigate or prosecute any alcohol or drug abuse patient.[facility] the event this information is protected by the Federal Confidentiality of Alcohol and Drug Abuse Patient Records regulations: The Federal rules restrict any use of the information to criminally investigate or prosecute any alcohol or drug abuse patient.[facility] System[facility] the event this information is protected by the Federal Confidentiality of Alcohol and Drug Abuse Patient Records regulations: The Federal rules restrict any use of the information to criminally investigate or prosecute any alcohol or drug abuse patient.[facility] System[facility] the event this information is protected by the Federal Confidentiality of Alcohol and Drug Abuse Patient Records regulations: The Federal rules restrict any use of the information to criminally investigate or prosecute any alcohol or drug abuse patient.[facility] System[facility] the event this information is protected by the Federal Confidentiality of Alcohol and Drug Abuse Patient Records regulations: The Federal rules restrict any use of the information to criminally investigate or prosecute any alcohol or drug abuse patient.[facility] SystemIn the event this information is protected by the Federal Confidentiality of Alcohol and Drug Abuse Patient Records regulations: The Federal rules restrict any use of the information to criminally investigate or prosecute any alcohol or drug abuse patient.[facility] SystemIn the event this information is protected by the Federal Confidentiality of Alcohol and Drug Abuse Patient Records regulations: The Federal rules restrict any use of the information to criminally investigate or prosecute any alcohol or drug abuse patient.[facility] System[facility] the event this information is protected by the Federal Confidentiality of Alcohol and Drug Abuse Patient Records regulations: The Federal rules restrict any use of the information to criminally investigate or prosecute any alcohol or drug abuse patient.[facility] SystemIn the event this information is protected by the Federal Confidentiality of Alcohol and Drug Abuse Patient Records regulations: The Federal rules restrict any use of the information to criminally investigate or prosecute any alcohol or drug abuse patient.[facility] SystemIn the event this information is protected by the Federal Confidentiality of Alcohol and Drug Abuse Patient Records regulations: The Federal rules restrict any use of the information to criminally investigate or prosecute any alcohol or drug abuse patient.[facility] SystemIn the event this information is protected by the Federal Confidentiality of Alcohol and Drug Abuse Patient Records regulations: The Federal rules restrict any use of the information to criminally investigate or prosecute any alcohol or drug abuse patient.[facility] SystemIn the event this information is protected by the Federal Confidentiality of Alcohol and Drug Abuse Patient Records regulations: The Federal rules restrict any use of the information to criminally investigate or prosecute any alcohol or drug abuse patient.[facility] SystemIn the event this information is protected by the Federal Confidentiality of Alcohol and Drug Abuse Patient Records regulations: The Federal rules restrict any use of the information to criminally investigate or prosecute any alcohol or drug abuse patient.[facility] SystemIn the event this information is protected by the Federal Confidentiality of Alcohol and Drug Abuse Patient Records regulations: The Federal rules restrict any use of the information to criminally investigate or prosecute any alcohol or drug abuse patient.[facility] SystemIn the event this information is protected by the Federal Confidentiality of Alcohol and Drug Abuse Patient Records regulations: The Federal rules restrict any use of the information to criminally investigate or prosecute any alcohol or drug abuse patient.[facility] FOR RECORDS PERTAINING TO PATIENTS WHO ARE OR HAVE BEEN ENROLLED IN A CHEMICAL DEPENDENCY/SUBSTANCEABUSE PROGRAM, SOME INFORMATION MAY BE OMITTED. This clinical summary was aggregated from multiple sources. Caution should be exercised in using it in the provision of clinical care. This summary normalizes information from multiple sources, and as a consequence, information in this document may materially change the coding, format and clinical context of patient data. In addition, data may be omitted in some cases. CLINICAL DECISIONS SHOULD BE BASED ON THE PRIMARY CLINICAL RECORDS. [facility]. provides no warranty or guarantee of the accuracy or completeness of information in this document.
[2023-05-17 10:04] LABS: Basophils Absolute Auto 0.1 10^3/uL (0.0-0.1); Basophils Percent Auto 0.5 % (0.2-2.0); Eosinophils Absolute Auto 0.2 10^3/uL (0.0-0.7); Eosinophils Percent Auto 1.4 % (0.9-7.0); Hemoglobin 13.7 g/dL (14.0-18.0); Immature Granulocytes Abs Auto 0.09 10^3/uL (0.00-0.03); Immature Granulocytes Pct Auto 0.8 % (0.0-0.5); Lymphocytes Absolute Auto 1.8 10^3/uL (1.2-3.8); Lymphocytes Percent Auto 16.9 % (20.5-60.0); Mean Corpuscular HGB Conc 31.9 g/dL (29.9-35.2); Mean Corpuscular Hemoglobin 27.6 pg (25.9-34.0); Mean Corpuscular Volume 86.5 fL (80.0-94.0); Mean Platelet Volume 10.1 fL (9.5-13.5); Monocytes Absolute Auto 0.9 10^3/uL (0.3-0.8); Monocytes Percent Auto 7.9 % (1.7-12.0); Neutrophils Absolute Auto 7.8 10^3/uL (1.4-6.5); Neutrophils Percent Auto 72.5 % (43.0-75.0); Platelet Count 239 10^3/uL (150-450); Red Blood Count 4.97 10^6/uL (4.70-6.10); Red Cell Distribution Width 14.3 % (11.0-15.0); White Blood Count 10.8 10^3/uL (4.0-11.0)
[2023-05-17 10:12] LABS: Anion Gap 14.9; BUN Creatinine Ratio 20.7; Calcium 7.7 mg/dL (8.5-10.1); Carbon Dioxide 23.8 mmol/L (21.0-32.0); Chloride 108 mmol/L (98-107); Estimated GFR (African America 56 (>=60); Estimated GFR (Non-African Ame 46 (>=60); Glucose 84 mg/dL (74-106); Potassium 3.7 mmol/L (3.5-5.1); Sodium 143 mmol/L (136-145)
[2023-05-17 10:19] LABS: Troponin I High Sensitivity 5.5 pg/mL (4.0-76.1)
--- NOTE | 2023-05-17 10:55 | ECG_ITS ---
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
--- NOTE | 2023-05-17 10:55 | ECG_ITS ---
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
[2023-05-17 11:20] LABS: Troponin I High Sensitivity <4.0 pg/mL (4.0-76.1)
== END 2023-05-17 13:39 | disposition home or self-care (01) ==
PROVIDERS: Emergency Provider Emergency Medicine; PCP Family Medicine
DX: R07.9 Chest pain, unspecified (principal); Z79.82 Long term (current) use of aspirin; N18.9 Chronic kidney disease, unspecified; Z79.899 Other long term (current) drug therapy; Z79.890 Hormone replacement therapy; Z87.891 Personal history of nicotine dependence
CPT/HCPCS: 36415; 71045; 80048; 84484; 85025; 93005; 99285

== ENCOUNTER 2023-06-07 07:35 | Outpatient (OUT) | payer MEDICARE, OTHER, SELFPAY ==
--- NOTE | 2023-06-07 | PCN_ITS ---
CARDIAC STRESS TEST Requesting Physician: Shashi Mitchell NP Procedure Date: 06/07/2023 PERFORMING PROVIDER: Erika Mesa M.D. INDICATION: Chest pain. STRESS TEST TYPE: Lexiscan myocardial perfusion imaging. RESTING EKG: Sinus bradycardia. RESTING HEART RATE: 55 PEAK HEART RATE: 88 RESTING BLOOD PRESSURE: 112/74 PEAK BLOOD PRESSURE: 118/68 ST CHANGES: No ST changes meet the criteria of ischemia. SYMPTOMS: Chest pain with improved with aminophylline and rest. ARRHYTHMIAS: PVCs CONCLUSIONS: 1. Resting EKG with sinus bradycardia. 2. No definite EKG changes meeting the criteria of ischemia post Lexiscan infusion. 3. Patient had chest pain that improved with aminophylline and rest. 4. Clinical correlation advised. 5. Nuclear portion will be interpreted and reported in a separate report. Please refer to that for additional information. MTDD
--- NOTE | 2023-06-07 07:15 | NM_ITS ---
Patient Name: YOLI ANTUNEZ MR#: [id number] : 1955 Exam Date: 06/07/2023 Ordering Doctor: ELYSSA SOLANO RADIOLOGY REPORT PROCEDURE: NM EFRAIN PERF SPECT REST STR COMPARISON: None. INDICATIONS: CHEST PAIN, HISTORY OF ATRIAL FIBRILLATION TECHNIQUE: Exam Description: Stress/Rest one day protocol gated SPECT Rest Imagin.2 mCi Tc-99m Cardiolite IV on 06-07-2023 Stress Imaging 30.7 mCi Tc-99m Cardiolite IV on 06-07-2023 Exercise Protocol: 0.4 mg Lexiscan given IV Heart Rate (bpm): Rest: 55 Max: 88 PMHR: 58 Blood Pressure: Rest: 112/74 Max: 118/68 Symptoms: chest pain Rest and peak stress ECG findings were normal and the exercise portion of the study was normal per attending physician Dr. Mesa . For more details please see separate cardiac stress test report. FINDINGS: QUALITY OF STUDY: Excellent. PERFUSION DEFECT: LOCATION: Basal inferior. Mid-inferior. Apical inferior. SIZE: Medium (3-4 segments). SEVERITY: Mild. TYPE: Persistent. WALL MOTION: Normal. LV SIZE: Normal. 101 mL. TID / TCD: None; 0.8 LVEF: Normal. Calculated EF 60%. SUMMARY: Myocardial perfusion imaging study has ABNORMAL findings. CONCLUSION: 1. No acute or reversible ischemia. 2. Diaphragm attenuation artifact versus mildly decreased perfusion of the inferior wall; stable between stress and rest imaging. Attenuation artifact is suspected. 3. Normal wall motion, left ventricle volume, and ejection fraction. Dictated by: Matt Martell M.D. on 06/07/2023 at 12:03 Approved by: Matt Martell M.D. on 06/07/2023 at 13:36
--- OUTSIDE RECORDS SUMMARY | 2023-06-07 07:40 | XMS_ITS | CCD ---
Author Name Unknown Address [address] [place] [address] Organization [facility] Care Team Providers Care Football Scout Name Role Phone CLAIR MATT Unavailable Unavailable RADHA BURRIS Unavailable Unavailable Chris Luong Unavailable Unavailable Fatuma, Ritu Unavailable Unavailable Terrell Her Unavailable Unavailable Terrell Her Unavailable Unavailable Phillip Escobar Unavailable Unavailable Fatuma Ritu Unavailable Unavailable RADHA PRICE Primary Care Un available MAYELIN WOLFF Referring Unavailable Radha Price Primary Care [facility] PROVIDER, UNKNOWN Attending Unavailable PROVIDER, UNKNOWN Admitting Unavailable RADHA BURRIS Primary Care Unavailable PATIENT, SELF Referring [...] Primary Care Unavailable JANET FORD Consulting Unavailable KOMMJEISONI, DARIELA Admitting Unavailable KOMIRA, DARIELA Attending Unavailable MINDY SEVERINO Referring Unavailable RADHA PRICE Primary Care Un available BHAVESH GUNTER Consulting Unavailable CANOS IVMARIO Consulting UnavailDUSTY Collier Consulting Unavailable Melissa VAZQUEZ, Radha Hinojosa Primary Care Pr ovider Radha Burris MD Primary Care Provider Esther Grey DO Unavailable Radha Burris Primary Care Provider Tucker VAZQUEZ, Elian Caballero Unavailable Luan VAZQUEZ, Herminia Schuler Unavailable [phone] MARKER, DR MARTIN Consulting Unavailable MARKER, DR MARTIN Attending Unavailable FATUMA, DR OCONNOR Primary Care Unavailable MARKER, DR MARTIN Admitting Unavailable AMOS RAMIREZ Consulting Unavailable FATUMA, DR OCONNOR Primary Care Unavailable CONCHA PHILLIPS Attending Unavailable MICHAEL, DR MAYELIN Lovell Consulting Unavailable CONCHA PHILLIPS Admitting Unavailable BLANCHE SEVERINO Consulting Unavailable DAVIE NARANJO Consulting Unavailable SAMANTHA, DR DEVANTE Zhang Attending Unavailsadaf BURRIS, DR OCONNOR Primary Care Unavailable BLANCHE SEVERINO [...] Primary Care Unavailable VITALIY, YANDEL Consulting Unavailable MOUKARBEL, DR [...] Primary Care Unavailable Fatuma, Radha R Unavailable [phone] Unavailable Unavailable Fatuma, Dr. Radha Mena Primary Care Unavail able Bhavesh Penn Admitting Unavailable Bhavesh Penn Attending Unavailable Killian, Dr. Ruby Maguire Attending Unavailab nikki Daily, Dr. Ruby Maguire Referring Unavailab le Fatuma, Dr. Radha Mena Primary Care Unavail able Rika Butt, Dr. Arabella Siddiqi Attending Unavailable Fatuma, Dr. Radha Mena Primary Care Unavail able Rika Butt, Dr. Arabella Siddiqi Attending Unavailable Fatuma, Dr. Radha Mena Primary Care Unavail able Rika Butt, Dr. Arabella Siddiqi Attending Unavailable Rika Butt, Dr. Arabella Siddiqi Referring Unavailable Fatuma, Dr. Radha Mena Primary Care Unavail able Rika Butt, Dr. Arabella Siddiqi Admitting Unavailable Rika Butt, Dr. Arabella Siddiqi Attending Unavailable Fatuma, Dr. Radha Mena Primary Care Unavail able Killian, Dr. Ruby Maguire Referring Unavailab nikki Diego, Dr. Beth Hedrick Attending Unavai sohail Burris, Dr. Radha Mena Primary Care Unavail able Killian, Dr. Ruby Maguire Attending Unavailab le Fatuma, Dr. Radha Mena Primary Care Unavail able Daily, Dr. Ruby Maguire Attending Unavailab le Fatuma, Dr. Radha Mena Primary Care Unavail able Saycaleb, Dr. Sy Attending Unavailable Sayon, Dr. Sy Referring Unavailable Fatuma, Dr. Radha Mena Primary Care Unavail able Sayon, Dr. Sy Attending Unavailable Sayon, Dr. Sy Referring Unavailable Fatuma, Dr. Radha Mena Primary Care Unavail able Sayon, Dr. Sy Attending Unavailable Sayon, Dr. Sy Referring Unavailable Fatuma, Dr. Radha Mena Primary Care Unavail able Fatuma, Dr. Radha Mena Primary Care Unavail able Aydin, Dr. Ranjana Joiner Attending U navailable Fatuma, Dr. Radha Mena Primary Care Unavail able Aydin, Dr. Ranjana Joiner Attending U navailable Aydin, Dr. Ranjana Joiner Referring U navailable Fatuma, Dr. Radha Mena Primary Care Unavail able Aydin, Dr. Ranjana Joiner Attending U navailable Killian, Dr. Ruby Maguire Referring Unavailab le Daily, Dr. Ruby Maguire Attending Unavailab le Fatuma, Dr. Radha Mena Primary Care Unavail able Aydin, Dr. Ranjana Joiner Attending U navmelviable Aydin, Dr. Ranjana Joiner Referring U navailable Fatuma, Dr. Radha Mena Primary Care Unavail able Killian, Dr. Ruby Maguire Referring Unavailab le Diego, Dr. Beth Hedrick Admitting Unavai labnikki Diego, Dr. Beth Hedrick Attending Unavai labnikki Burris, Dr. Radha Mena Primary Care Unavail able Killian, Dr. Ruby Maguire Admitting Unavailab le Daily, Dr. Ruby Maguire Attending Unavailab le Daily, Dr. Ruby Maguire Referring Unavailab le Fatuma, Dr. Radha Mena Primary Care Unavail able Aydin, Dr. Ranjana Joiner Attending U navailable Fatuma, Dr. Radha Mena Primary Care Unavail able Saycaleb, Dr. Sy Admitting Unavailable Sayon, Dr. Sy Attending Unavailable Fatuma, Dr. Radha Mena Primary Care Unavail able Fatuma, Dr. Radha Mena Referring Unavail able Tucker VAZQUEZ, Elian Caballero Unavailable Herminia Roland MD Unavailable Radha Burris MD Primary Care Provider YOSSI CHEN Attending Unavailable RADHA BURRIS Primary Care Unavailable RADHA BURRIS Primary Care Unavailable RADHA BURRIS Primary Care Unavailable YOSSI CHEN Referring Unavailable RADHA BURRIS Primary Care Unavailable Asaad, Imad Unavailable MD Radha Rapp Primary Care Pr ovider MD Estella Imallison Attending Provider MATIAS JUAREZ Attending Unavailab MARTÍN Garcia Attending Unavailable ELEONORA LAUREANO Referring Unavailab MAYELIN Wiseman Attending Unavailable Radha Burris MD Primary Care Provider Esther Grey DO Unavailable Radha Rapp Primary Care Un available Asaad, Imad Attending Unavailable Asaad, Imad Admitting Unavailable RADHA BURRIS Primary Care Unavailable SARBJIT RICHARDSON Attending Unavailable RADHA BURRIS Primary Care Unavailable SARBJIT RICHARDSON Attending Unavailable RADHA BURRIS Primary Care Unavailable RADHA BURRIS Primary Care Unavailable MARÍA PEARL Referring Unavailable RADHA BURRIS Primary Care Unavailable MARÍA PEARL Attending Unavailable RADHA BURRIS Primary Care Unavailable RADHA BURRIS Primary Care Unavailable RADHA BURRIS Primary Care Unavailable RADHA BURRIS Primary Care Unavailable SARBJIT RICHARDSON Referring Unavailable MARÍA PEARL Attending Unavailable LACEY BOLDEN Referring Unavailable JAYLYN BENDER Referring Unavailable VEORNICA MELÉNDEZ Attending Unavailable JACKIE BANKS Attending Unavailable JACKIE BANKS Attending Unavailable JACKIE BANKS Attending Unavailable YANDEL SHEN Attending Unavailable ELYSSA SOLANO Attending Unavailable JAYLYN BENDER Attending Unavailable SHUKRI VILCHIS Attending Unavailable COLLIN GONSALEZ Attending Unavailable JAYLYN BENDER Referring Unavailable JAYLYN BENDER Referring Unavailable ELYSSA SOLANO Attending Unavailable JACKIE BANKS Referring Unavailable AHAUBRIE, LACEY Referring Unavailable Radha Burris MD Unavailable Radha Burris MD Primary Care Provider Allergies Allergy Classification Reported Allergen(s) Allergy Type Date of Onset Reaction(s) Facility (20 sources) Amoxicillin; Translations: [amoxicillin] Drug Allergy 3 Unknown [facility] (20 sources) Penicillins; Translations: [Penicillins] drug allergy 1 Rash [facility] (13 sources) Penicillin Drug Allergy Unknown [facility] Other (1 source) Penicillin Drug Allergy 0 The [facility] Repository (20 sources) dofetilide; Translations: [Tikosyn CAPS] Drug Allergy 2 Other: See Comments, Unknown [facility] (3 sources) Penicillins Propensity to adverse reactions to drug 1 Unknown, Other [facility] Work Phone: (20 sources) Penicillins Drug Allergy 1 Unknown [facility] Work Phone: (1 source) dofetilide Drug Allergy 3 [facility] Repository (1 source) Penicillins Drug allergy (disorder) 5 [facility] Repository (4 sources) Vancomycin; Translations: [VANCOMYCIN] Drug Allergy 2 Hives [facility] Repository (20 sources) Vancomycin; Translations: [Vancomycin HCl CAPS] Drug Allergy 2 Anaphylaxis, Itching, Rash [facility] (8 sources) Vancomycin HCl in Dextrose SOLN; Translations: [Vancomycin HCl in Dextrose SOLN] Allergy to drug (finding) [facility] Work Phone: (7 sources) Vancomycin; Translations: [VANCOMYCIN HCL] Drug Allergy 3 Unknown [facility] Work Phone: (7 sources) Vancomycin Hcl In Water; Translations: [VANCOMYCIN HCL IN WATER] Propensity to adverse reactions 3 Unknown [facility] Work Phone: (1 source) dofetilide Drug Allergy 3 [facility] Repository (1 source) Penicillins Drug allergy (disorder) 3 [facility] Repository (1 source) Vancomycin Drug Allergy 3 [facility] Repository (1 source) dofetilide Drug Allergy 2 Dizziness, Unknown [facility] Medications Current Medications Medication Drug Class(es) Dates Sig (Normalized) Sig (Original) budesonide 3 mg delayed release oral capsule (4 sources) Corticosteroid Start: 04-24-2023 Budesonide 3 MG 3 tabs daily for 60 days, 2 tabs daily for 14 days, 1 tab daily for 14 days Orally Once a day for 90 days Apr, Active calcitriol 0.80916 mg oral capsule (20 sources) Vitamin D3 Analog Start: 01-15-2020 End: 04-12-2023 take 1 capsule by mouth once daily calcitriol (ROCALTROL) 0.25 MCG capsule TAKE 1 CAPSULE BY MOUTH DAILY. 30 Capsule 3 01/15/2020 Active Start: 09-25-2018 End: 07-01-2020 take 1 capsule [...] Start: 01-10-2022 take 1 tablet by ana th twice daily at mealtime Oyster Shell Calcium 500 MG Oral Tablet TAKE 1 TABLET BY MOUTH TWICE DAILY WITH MEALS Quantity: 180 Refills: 0 Ordered: 22-May-2022 DO Start : 10-Jan-2022 Active calcium carbonat e (Os-Atilio) 1250 (500 Ca) MG chewable tablet Chew 1 tablet in the morning. 0 Active take 1 tablet by mouth once james y calcium carbonate 500 mg calcium (1,250 mg) chewable tablet Take 1 tablet by mouth once daily. 0 Active Comment on above: Take 1 tablet by ana once daily. cholestyramine resin 4000 mg powder for oral suspension (7 sources) Bile Acid Sequestrant Start: 03-20-2023 Cholestyramine 4 GM/DOSE 1 scoop Orally Once a day for 30 days Feb, Active Start: 03-20-2023 Cholestyramine 4 GM/DOSE 1 scoop Orally Once a day for 30 days Feb, Active clindamycin 300 mg oral capsule (2 sources) Lincosamide Antibacterial Start: 01-27-2020 take 2 capsules [...] IVPB dicyclomine hydrochloride 10 mg oral capsule (8 sources) Anticholinergic Start: 04-02-20 take 10 mg by mouth twice daily Dicyclomine Active 10 MG PO Twice daily April 12, 2023 12:00am Start: 04-01-2023 take 1 capsule by mo [facility] twice daily Bentyl 10 MG 1 capsule Orally twice a day for 30 days Mar, Active 24 hr dilTIAZem hydrochloride 180 mg extended release oral capsule (20 sources) Calcium Channel González Start: 04-12-2023 take 260 mg by mouth once daily Diltiazem Hcl Active 260 MG PO Daily April 12, 2023 12:00am Start: 12-27-2022 take 2 capsules by m outh every twenty-four hours in the morning dilTIAZem CD (Cardizem CD) 180 MG 24 hr capsule TAKE 2 CAPSULES BY MOUTH IN THE MORNING 0 12/27/2022 Active Start: 09-08-2022 take 2 capsules by m [...] DO Start : 08-Jun-2022 Active Start: 05-31-2022 End: 05-31-2023 take 1 tablet by mouth once daily dilTIAZem HCl 360 mg 24 hr tablet Take 1 tablet by mouth once daily. 0 05/31/2022 05/31/2023 Discontinued Start: 04-30-2022 take 1 capsule by mo [...] 22-Mar-2022 End : 25-Sep-2022 Complete Start: 01-15-2020 take 1 capsule by mo uth once daily diltiazem (CARDIZEM CD) 120 MG ER capsule TAKE 1 CAPSULE BY MOUTH DAILY. 30 Capsule 3 01/15/2020 Active Start: 11-06-2019 take 2 tablets [...] Comment on above: [facility]. ERENUMAB-AOOE SUBQ (2 sources) ERENUMAB-AOOE SHULTZ BQ Inject under the skin. 0 Active ergocalciferol 1.25 mg oral capsule (20 sources) Provitamin D2 Compound Start: 10-09-19 take 1 capsule by mouth every week ergocalciferol (Vitamin D-2) 1.25 MG (67035 UT) capsule Take 1 capsule (1,250 mcg) by mouth 1 (one) time per week. 0 10/08/2022 Active Start: 01-10-2022 take 1 capsule by mo uth every week Vitamin D (Ergocalciferol) 1.25 MG (18169 UT) Oral Capsule TAKE 1 CAPSULE BY MOUTH ONCE A WEEK Quantity: 12 Refills: 0 Ordered: 17-Jul-2022 DO Start : 10-Jan-2022 Active Vitamin D2 Activ e Comment on above: Take 50,000 Units by mouth one time a week. fluconazole 100 mg oral tablet (2 sources) Azole Antifungal Start: 0 take 1 tablet by mouth once daily fluconazole (DIFLUCAN) 100 MG tablet Take 1 Tablet by mouth daily. 14 Tablet 1 01/27/2020 Active HYDROmorphone (DILAUDID) injection 0.25 mg (2 sources) Start: 2 HYDROmorphone (DILAUDID) injection 0.25 mg Start: 12-31-2021 End: 01-02-2022 HYDROmorphone (DILAUDID) inj ection 0.25 mg levothyroxine sodium 0.2 mg oral tablet (20 sources) l-Thyroxine Start: 04-23-2023 take 1 tablet by mouth before mealtime levothyroxine (Synthroid) 200 MCG tablet Indications: 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, unspecified type (CMS/HCC) Take 1 tablet (200 mcg) by mouth in the morning. Take before meals. 90 tablet 3 04/23/2023 Active Start: 01-03-2022 take 150 ug by mouth once james y 150 mcg, Oral, DAILY, First dose on Sat01/03/22 at 0900, Until Discontinued Tube feeding (TF) interaction, obtain physician order to manage, recommend holding TF for 30 minutes before and after dose. Start: 12-15-2020 take 1 tablet by ana th once daily before breakfast levothyroxine (LEVOXYL) 175 mcg tablet Take 1 tablet by mouth daily before breakfast. 0 12/15/2020 Active Start: 07-01-2020 End: 04-12-2023 take 125 ug by mouth once daily Levothyroxine Disconti nued 25 MCG PO Daily July 01, 2020 12:00am April 12, 2023 12:19pm takes with 125mcg dose for 150mcg daily Start: 01-15-2020 take 5 tablets by mo uth once daily levothyroxine (SYNTHROID) 25 MCG tablet TAKE 5 TABLETS BY MOUTH DAILY. 30 Tablet 3 01/15/2020 Active Start: 01-15-2020 levothyroxine (Synthroid, Levoxyl) 25 mcg tablet Take by mouth. 0 01/15/2020 Active Start: 11-06-2019 take 1 tablet [...] before breakfast. lisinopril 5 mg oral tablet (2 sources) Angiotensin Converting Enzyme Inhibitor Start: 01-15-20 take [...] IVPB midodrine hydrochloride 5 mg oral tablet (8 sources) alpha-Adrenergic Agonist Midodrine HCl 5 MG Oral for 30 Days Active nitrofurantoin, macrocrystals 25 mg / nitrofurantoin, monohydrate 75 mg oral capsule (2 sources) Nitrofuran Antibacterial Start: 01-22-20 20 nitrofurantoin monohydrate macrocrystal (MACROBID) 100 MG capsule nitroglycerin 0.4 mg sublingual tablet (17 sources) Nitrate Vasodilator nitroglyceri n (Nitrostat) 0.[address] 0.4 mg under the tongue. 0 Active Comment on above: Dissolve 0.4 mg unde r the tongue every 5 minutes as needed. nystatin 100 unt/mg topical powder (2 sources) Polyene Antifungal Start: 01-27-20 nystatin (MYCOSTATIN) 100,000 [...] Start: 01-15-2020 take 1 capsule by mo ut once daily omeprazole (PRILOSEC) 40 MG capsule [...] disintegrating tablet 4 mg polyethylene glycol 3350 [id number] mg / potassium chloride 2970 mg / sodium bicarbonate 6740 mg / sodium chloride 5860 mg / sodium sulfate 45106 mg powder for oral solution (7 sources) Osmotic Laxative Start: 03-20-20 take 4000 [...] 60 mg oral tablet (19 sources) Start: 08-08-19 End: 09-26-19 take 1 tablet by mouth three times [...] oral tablet (20 sources) Aluminum Complex Start: 01-15-20 take 1 tablet by mouth four times daily at bedtime sucralfate (CARAFATE) 1 GM tablet TAKE 1 TABLET BY MOUTH 4 TIMES DAILY (BEFORE MEALS AND AT BEDTIME). 120 Tablet 3 01/15/2020 Active Start: 01-15-2020 Sucralfate 1 G M Oral Tablet Quantity: 120 Refills: 0 Ordered: 15-Jan-2020 DO Start : 15-Jan-2020 Active topiramate 25 mg oral tablet (3 sources) Start: 04-06-2023 take 25 mg by mouth twice daily [...] daily. vitamin b12 1 mg oral tablet (2 sources) Vitamin B12 take 1.25 ug by mouth every week cyanocobalamin (Vitamin B-12) 1000 MCG tablet Take 1.25 mcg by mouth once a week. 0 Active Completed/Discontinued Medications Medication Drug Class(es) [...] 5-325 MG per tablet 1 tablet Aimovig (13 sources) Aimovig Not-Taki ng/PRN Aimovig Not-Taki ng Amiodarone (13 sources) Antiarrhythmic Amiodarone HCl N ot-Taking/PRN Amiodarone HCl N ot-Taking amLODIPine 5 mg oral tablet (3 sources) Dihydropyridine Calcium Channel González amLODIPine Besylate 5 MG Oral Tablet Refills: 0 Active amLODIPine 5 mg / benazepril hydrochloride 10 mg oral capsule (11 sources) Dihydropyridine Calcium Channel González, Angiotensin Converting [...] Comment on above: Take 1 capsule by [facility] once daily. apixaban 5 mg oral tablet [...] aspirin 81 mg delayed release oral tablet (12 sources) Platelet Aggregation Inhibitor, Nonsteroidal Anti-inflammatory Drug take 1 tablet by mouth once daily aspirin, enteric coated (ASPIRIN, ENTERIC COATED) 81 mg EC tablet Take 81 mg by mouth once daily. 0 Active Comment on above: Take 81 mg by mouth once daily. atorvastatin 80 mg oral tablet (20 sources) HMG-CoA Reductase Inhibitor Start: 07-02-19 End: 04-12-20 take 80 mg by mouth once daily in the evening Atorvastatin Discontinued 80 MG PO Every evening July 01, 2020 12:00am April 12, 2023 12:19pm Atorvastatin Atilio cium Not-Taking/PRN End: 07-31-2022 Atorvastatin Calcium 80 MG O ral Tablet Quantity: 0 Refills: 0 Ordered: 31-Jul-2022 DO End : 31-Jul-2022 Complete Atorvastatin Atilio cium Not-Taking benazepril hydrochloride 10 mg oral tablet (20 sources) Angiotensin Converting Enzyme Inhibitor Start: 05-31-2022 End: 05-31-2023 take 1 tablet by mouth once daily benazepril (LOTENSIN) 10 mg tablet Take 1 tablet by mouth once daily. 0 05/31/2022 05/31/2023 Discontinued Start: 12-26-2021 End: 01-05-2022 take 1 tablet by mouth once daily Benazepril HCl - 10 MG Oral Tablet TAKE 1 TABLET BY MOUTH ONCE DAILY Quantity: 90 Refills: 0 Ordered: 13-Aug-2022 DO Start : 26-Dec-2021 Active Start: 12-07-2019 End: 05-31-2023 benazepril (LOTENSIN) 5 mg t ablet Start: 11-06-2019 take 2 tablets by mo [facility] once daily benazepril (Lotensin) 5 mg tablet Take 2 tablets (10 mg) by mouth once daily. Replacing amlodipine/benazepril 0 11/06/2019 Active Comment on above: [facility] betamethasone 3 mg/ml / betamethasone acetate 3 [...] esomeprazole 40 mg delayed release oral capsule (2 sources) Proton Pump Inhibitor Start: 01-15-2020 End: 01-15-2020 [...] once daily. gabapentin 300 mg oral capsule (19 sources) Anti-epileptic Agent Start: 11-29-2022 take 1 [...] 5 mg indomethacin 25 mg oral capsule (16 sources) Nonsteroidal Anti-inflammatory Drug Start: 07-01-2020 End: [...] mononitrate 60 mg extended release oral tablet (16 sources) Nitrate Vasodilator Start: 07-01-2020 End: 04-12-2023 take 60 mg by mouth once daily Isosorbide Mononitrate Discontinued 60 MG PO Daily July 01, 2020 12:00am April 12, 2023 12:19pm Start: 12-02-2019 isosorbide mon onitrate (IMDUR) 30 MG CR tablet Isosorbide [place] itrate Not-Taking/PRN Isosorbide [place] itrate Not-Taking ketorolac tromethamine 10 mg oral [...] mg in 50 mL IVPB premix methylPREDNISolone (13 sources) Corticosteroid Start: 12-28-2015 Depo-Medrol 40 mg Dec, 1 mL metoprolol tartrate 75 mg oral tablet (20 sources) beta-Adrenergic González Start: 07-01-2020 End: 04-12-2023 [...] Tartr ate Not-Taking/PRN take 1 tablet by ana th every twenty-four hours metoprolol succinate XL [...] Sat01/03/22 at 0730 Antimicrobial Indications: Surgical Prophylaxis ondansetron 4 mg oral tablet (9 sources) [...] : 12-Oct-2021 Active take 1 tablet by ana th every twenty-four hours Zoloft 25 MG 1 [...] : 21-Mar-2022 Active take 1 capsule by [facility] every twenty-four hours tamsulosin (Flomax) 0.4 mg [...] Problem Date Documented Date Episodic/Chronic Abdominal hernia (20 sources) Hiatal hernia; Translations: [Diaphragmatic hernia without mention of obstruction or gangrene] Onset: 3 Episodic Abdominal pain (15 sources) Unspecified abdominal pain; Translations: [Left lower quadrant pain] Onset: 2 Episodic Acute and unspecified renal failure (20 sources) Injury of kidney; Translations: [Acute kidney failure, unspecified] Onset: 6 Episodic Acute posthemorrhagic anemia (1 source) Acute posthemorrhagic anemia; Translations: [Acute posthemorrhagic anemia] 07-01-2020 Episodic Allergic reactions (6 sources) Allergy status to penicillin; Translations: [Allergy status to other antibiotic agents status] Onset: 3 09-07-2022 Episodic Anxiety disorders (1 source) Anxiety; Translations: [Anxiety disorder, unspecified] Onset: 3 10-01-2022 Chronic Cardiac dysrhythmias (20 sources) Paroxysmal atrial fibrillation; Translations: [Paroxysmal atrial fibrillation] Onset: 0 Chronic Cataract (19 sources) Nuclear sclerotic cataract; Translations: [Age-related nuclear cataract, left eye] Onset: 8 01-06-2020 Chronic Chronic kidney disease (20 sources) Chronic kidney disease stage 3; Translations: [Chronic kidney disease, stage 3 (moderate)] Onset: 0 Chronic Chronic kidney disease (3 sources) Chronic kidney disease; Translations: [Chronic kidney disease, stage 3 unspecified] Onset: 3 Complications of surgical procedures or medical care (16 sources) Hypoparathyroidism following procedure; 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] Onset: 3 10-13-2018 Chronic Complications of surgical procedures or medical care (14 sources) Postoperative seroma; Translations: [Postprocedural seroma of a circulatory system organ or structure following other procedure] Onset: 3 10-01-2022 Episodic Conditions associated with dizziness or vertigo (1 source) Meniere's disease; Translations: [Meniere's disease, unspecified ear] Onset: 1 10-01-2022 Chronic Coronary atherosclerosis and other heart disease (20 sources) Atypical angina; 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 forms of angina pectoris] Onset: 1 12-14-2020 Chronic Digestive congenital anomalies (1 source) Esophageal web; 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] Onset: 3 Chronic Disorders of lipid metabolism (1 source) Hyperlipidemia; Translations: [Hyperlipidemia, unspecified] Onset: 0 10-01-2022 Chronic Diverticulosis and diverticulitis (15 sources) Diverticulosis of small intestine; Translations: [Diverticulosis of small intestine without perforation or abscess without bleeding] Onset: 1 10-01-2022 Chronic Esophageal disorders (20 sources) Gastroesophageal reflux disease; Translations: [Gastro-esophageal reflux disease without esophagitis] Onset: 0 12-14-2020 Chronic Essential hypertension (20 sources) Essential (primary) hypertension; Translations: [Malignant hypertension] Onset: 6 01-06-2020 Chronic Essential hypertension (2 sources) Essential hypertension Onset: 9 Fluid and electrolyte disorders (20 sources) Dehydration; Translations: [Dehydration] Onset: 6 Episodic Gastroduodenal ulcer (except hemorrhage) (13 sources) Gastric ulcer without hemorrhage, without perforation AND without obstruction; Translations: [Gastric ulcer, unspecified as acute or chronic, without hemorrhage or perforation] Chronic Gastroduodenal ulcer (except hemorrhage) (18 sources) Acute gastric ulcer; Translations: [Acute gastric ulcer without hemorrhage or perforation] Onset: 6 Episodic Gastrointestinal hemorrhage (2 sources) Upper gastrointestinal bleeding; Translations: [Gastrointestinal hemorrhage, unspecified] 07-01-2020 Episodic Genitourinary symptoms and ill-defined conditions (1 source) Post-micturition incontinence ; Translations: [Post-void dribbling] Onset: 3 10-01-2022 Chronic Genitourinary symptoms and ill-defined conditions (15 sources) History of acute renal failure; Translations: [Personal history of other diseases of urinary system] Onset: 6 10-01-2022 Episodic Gout and other crystal arthropathies (20 sources) Chronic gouty arthritis; Translations: [Idiopathic chronic gout, multiple sites, without tophus (tophi)] Onset: 6 10-01-2022 Chronic Headache; including migraine (20 sources) Migraine without aura, not refractory ; Translations: [Migraine without aura, not intractable, without status migrainosus] Onset: 8 01-06-2020 Chronic Headache; including migraine (16 sources) Headache disorder; 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 headache syndrome] Onset: 6 10-01-2022 Episodic Hyperplasia of prostate (1 source) Benign prostatic hypertrophy with outflow obstruction; Translations: [Benign prostatic hyperplasia with lower urinary tract symptoms] Onset: 3 06-12-2023 Chronic Hypertension with complications and secondary hypertension (19 sources) Hypertensive renal disease; Translations: [Hypertensive chronic kidney disease with stage 1 through stage 4 chronic kidney disease, or unspecified chronic kidney disease] Onset: 3 09-07-2022 Chronic Immunity disorders (1 source) [place] light chain disease; 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, not elsewhere classified] 05-31-2023 Chronic Menopausal disorders (1 source) Hormone replacement therapy; Translations: [HORMONE REPLACEMENT THERAPY] Onset: 3 Episodic Miscellaneous mental health disorders (1 source) Other somatoform disorders; Translations: [OTHER SOMATOFORM DISORDERS] Onset: 3 Chronic Nonspecific chest pain (17 sources) Chest pain; Translations: [Chest pain, unspecified] Onset: 1 01-06-2020 Episodic Nutritional deficiencies (14 sources) Vitamin D deficiency; Translations: [Vitamin D deficiency, unspecified] Onset: 7 10-01-2022 Chronic Osteoarthritis (16 sources) Osteoarthritis of elbow; Translations: [Primary osteoarthritis, right elbow] Onset: 6 10-01-2022 Chronic Other aftercare (1 source) Other long-term (current) drug therapy; Translations: [OTH 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 HOIST OPERATOR CURRENT DRUG THERAPY] Onset: 3 Episodic Other aftercare (1 source) USP (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 of anticoagulants; Translations: [PNEUMATIC HOIST OPERATOR CURRNT USE ANTICOAGULANTS] Onset: 3 Episodic Other aftercare (4 sources) 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; Translations: [PNEUMATIC HOIST OPERATOR CURRENT USE OF ASPIRIN] Onset: 3 Episodic Other aftercare (1 source) Patient encounter status; Translations: [USP (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 of antithrombotics/antiplat elets] 09-07-2022 Episodic Other aftercare (2 sources) Long-term current use of aspirin; Translations: [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] 09-07-2022 Episodic Other and ill-defined heart disease (14 sources) Left ventricular hypertrophy; Translations: [Cardiomegaly] Onset: 9 10-01-2022 Chronic Other and unspecified benign neoplasm (1 source) Benign neoplasm of lymph nodes; Translations: [Benign neoplasm of lymph nodes] Onset: 3 Episodic Other and unspecified benign neoplasm (1 source) Mass of digestive structure; Translations: [Polyp of stomach and duodenum] 09-07-2022 Episodic Other circulatory disease (4 sources) Presence of other cardiac implants and grafts; 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 specified cardiac device in situ] Onset: 2 Chronic Other circulatory disease (20 sources) H/O: hypertension; Translations: [Personal history of other diseases of circulatory system] Episodic Other circulatory disease (2 sources) History of cerebrovascular disease; Translations: [Personal history of transient ischemic attack (TIA), and cerebral infarction without residual deficits] 09-07-2022 Episodic Other circulatory disease (1 source) Low blood pressure; Translations: [Hypotension, unspecified] 07-01-2020 Episodic Other circulatory disease (1 source) Orthostatic hypotension; Translations: [Orthostatic hypotension] 05-31-2023 Episodic Other connective tissue disease (1 source) Presence of artificial knee joint, bilateral; Translations: [Presence of artificial knee joint, bilateral] Onset: 3 Chronic Other connective tissue disease (2 sources) Artificial knee joint present; Translations: [Presence of artificial knee joint, bilateral] Onset: 8 10-17-2022 Chronic Other connective tissue disease (1 source) History of total knee arthroplasty; Translations: [Presence of right artificial knee joint] Onset: 3 10-01-2022 Chronic Other connective tissue disease (1 source) Arthrodesis status; Translations: [Arthrodesis status] Onset: 3 Episodic Other connective tissue disease (1 source) H/O: arthrodesis; Translations: [Arthrodesis status] 10-17-2022 Episodic Other diseases of kidney and ureters (13 sources) Secondary hyperparathyroidism; Translations: [Secondary hyperparathyroidism of renal origin] Chronic Other disorders of stomach and duodenum (1 source) Disorder of upper gastrointestinal tract; 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 diseases of stomach and duodenum] 09-07-2022 Episodic Other endocrine disorders (1 source) Hypoparathyroidism; Translations: [Hypoparathyroidism, unspecified] Onset: 9 10-01-2022 Chronic Other gastrointestinal disorders (20 sources) Dysphagia; Translations: [Dysphagia, pharyngoesophageal phase] Onset: 9 09-07-2022 Episodic Other gastrointestinal disorders (20 sources) Oropharyngeal dysphagia; Translations: [Dysphagia, oropharyngeal phase] Onset: 3 Episodic Other gastrointestinal disorders (14 sources) Difficulty swallowing solids; Translations: [Dysphagia, unspecified] Onset: 9 10-01-2022 Episodic Other gastrointestinal disorders (13 sources) Swallowing problem; Translations: [Dysphagia, unspecified] Episodic Other gastrointestinal disorders (13 sources) Abnormal deglutition; Translations: [Dysphagia, unspecified] Episodic Other gastrointestinal disorders (6 sources) H/O: abdominal hernia; Translations: [Personal history of other diseases of digestive system] Resolved: 3 Episodic Other gastrointestinal disorders (1 source) Other dysphagia; 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 dysphagia] Onset: 3 Episodic Other gastrointestinal disorders (7 sources) Diarrhea; Translations: [Diarrhea, unspecified] 01-31-2023 Episodic Other gastrointestinal disorders (8 sources) Diarrhea, unspecified; Translations: [Diarrhea, unspecified] Onset: 3 Episodic Other gastrointestinal disorders (2 sources) Aphagia; Translations: [Aphagia] Onset: 3 Episodic Other hereditary and degenerative nervous system conditions (20 sources) Restless legs; Translations: [Restless legs syndrome] Onset: 7 12-14-2020 Chronic Other hereditary and degenerative nervous system conditions (2 sources) Multi-system degeneration of the autonomic nervous system; Translations: [Multi-system degeneration of the autonomic nervous system] Onset: 3 Chronic Other lower respiratory disease (14 sources) Dyspnea; Translations: [Shortness of breath] Onset: 9 10-01-2022 Episodic Other lower respiratory disease (2 sources) Other forms of dyspnea; 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 forms of dyspnea] Onset: 4 Episodic Other nervous system disorders (12 sources) Chronic pain; 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 chronic pain] Chronic Other nervous system disorders (15 sources) Disorder of autonomic nervous system; Translations: [Disorder of the autonomic nervous system, unspecified] Onset: 8 12-31-2022 Chronic Other nervous system disorders (4 sources) Other chronic pain; Translations: [Chronic pain] Onset: 2 Resolved: 2 Chronic Other nervous system disorders (17 sources) Aphasia; Translations: [Aphasia] Onset: 3 Chronic [...] Onset: 3 Chronic Other nervous system disorders (1 source) Expressive dysphasia; Translations: [Aphasia] Onset: 0 10-01-2022 Chronic Other nervous system disorders (1 source) Disorder of muscle; Translations: [Myopathy, unspecified] Onset: 1 10-01-2022 Chronic Other nervous system disorders (14 sources) Paresthesia of lower extremity; Translations: [Paresthesia of skin] Onset: 3 10-01-2022 Episodic Other non-traumatic joint disorders (14 sources) Pain in elbow; Translations: [Pain in right elbow] Onset: 3 10-01-2022 Episodic Other nutritional; endocrine; and metabolic disorders (15 sources) Hypocalcemia; Translations: [Hypocalcemia] Onset: 9 10-13-2018 Chronic Other nutritional; endocrine; and metabolic disorders (4 sources) Hypocalcemia; Translations: [HYPOCALCEMIA] Onset: 2 Chronic Other nutritional; endocrine; and metabolic disorders (1 source) Hypomagnesemia; Translations: [Hypomagnesemia] Onset: 1 10-01-2022 Chronic Other nutritional; endocrine; and metabolic disorders (14 sources) H/O: endocrine disorder; Translations: [Personal history of other endocrine, nutritional and metabolic disease] Onset: 9 10-29-2022 Episodic Other upper respiratory disease (3 sources) Vocal cord paralysis; Translations: [Paralysis of vocal cords and larynx, unspecified] Onset: 9 10-01-2022 Chronic Other upper respiratory disease (13 sources) Disorder of vocal cord; Translations: [Paralysis [...] bilateral] 10-17-2022 Chronic Other upper respiratory disease (14 sources) Hoarse; Translations: [Dysphonia] Onset: 9 10-01-2022 Episodic Other upper respiratory disease (20 sources) Disorder of vocal cord; 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 diseases of vocal cords] Onset: 3 01-30-2023 Episodic Residual codes; unclassified (20 sources) Obstructive sleep apnea syndrome; Translations: [Obstructive sleep apnea (adult) (pediatric)] Onset: 0 12-14-2020 Chronic Residual codes; unclassified (5 sources) [...] Spondylosis; intervertebral disc disorders; other back problems (16 sources) Cervical spondylosis; Translations: [Spondylosis without myelopathy or radiculopathy, cervical region] Onset: 2 Resolved: 2 Chronic Thyroid disorders (20 sources) 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; Translations: [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, unspecified] Onset: 9 09-07-2022 Chronic Transient cerebral ischemia (20 sources) [...] Diarrhea, unspecified; Translations: [Diarrhea, unspecified] Onset: 3 Unclassified (1 source) Aneurysm of the ascending aorta, without rupture; Translations: [Aneurysm of the ascending aorta, without rupture] Onset: 4 Past or Other Problems Problem Classification Problem Date Documented Da te Episodic/Chronic Biliary tract disease (18 sources) Gallstone; Translations: [Calculus of gallbladder without cholecystitis without obstruction] Onset: 01-02-2022 05-31-2022 Episodic Calculus of urinary tract (20 sources) Calcium renal calculus ; Translations: [History of calculus of kidney] Onset: 01-01-2022 Episodic Conditions associated with dizziness or vertigo (3 sources) Dizziness and giddiness; Translations: [Dizzy spells] Onset: 10-05-2021 12-31-2022 Episodic Diabetes mellitus without complication (5 sources) Hyperglycemia; Translations: [Hyperglycemia, unspecified] Onset: 01-01-2022 Episodic E Codes: Natural/environment (1 source) Other contact with dog, initial encounter; Translations: [OTHER CONTACT WITH DOG INITIAL ENC] Onset: 11-17-2021 Episodic Nausea and vomiting (4 sources) Nausea and vomiting; Translations: [Nausea with vomiting, unspecified] Onset: 01-01-2022 Episodic Nutritional deficiencies (2 sources) Vitamin B12 deficiency (non anemic); Translations: [Deficiency of other specified B group vitamins] Onset: 09-13-2020 10-01-2022 Episodic Other aftercare (1 source) 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 of antithrombotics/anti platelets; Translations: [USP (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 of antithrombotics/anti platelets] Onset: 08-30-2022 Episodic Other and unspecified benign neoplasm (1 source) Polyp of stomach and duodenum; Translations: [Polyp of stomach and duodenum] Onset: 08-30-2022 Episodic Other circulatory disease (3 sources) History of transient ischemic attack; Translations: [Personal history of transient ischemic attack (TIA), and cerebral infarction without residual deficits] Onset: 01-01-2022 Episodic Other circulatory disease (5 sources) Personal [...] left lower leg] Onset: 09-11-2022 Episodic Other connective tissue disease (1 source) Recurrent falls ; Translations: [Repeated falls] Onset: 02-05-2022 10-01-2022 Episodic Other diseases of kidney and ureters (1 source) Hydronephrosis; Translations: [Unspecified hydronephrosis] Onset: 05-01-2022 10-01-2022 Episodic Other disorders of stomach and duodenum [...] Translations: [Dysphagia, unspecified] Onset: 08-30-2022 Episodic Other injuries and conditions due to external causes (8 sources) Muscle strain; Translations: [Unspecified site of sprain and strain] Onset: 01-30-2023 01-30-2023 Episodic Other injuries and conditions due to external causes (1 source) Injury of head; Translations: [Unspecified injury of head, initial encounter] Onset: 10-29-2022 10-29-2022 Episodic Other liver diseases (3 sources) Jaundice; Translations: [Unspecified jaundice] Onset: 01-01-2022 Episodic Other lower respiratory disease (3 sources) Apnea; Translations: [Apnea, not elsewhere classified] Onset: 01-01-2022 Episodic Other nervous system disorders (2 sources) Skin sensation disturbance; Translations: [Unspecified disturbances of skin sensation] Onset: 10-27-2019 02-25-2023 Episodic Other non-traumatic joint disorders (3 sources) Pain in left shoulder Onset: 08-03-2021 Resolved: 10-02-2021 Episodic Other non-traumatic joint disorders (1 source) Arthralgia of the upper arm; Translations: [Pain in unspecified elbow] Onset: 12-28-2015 10-01-2022 Episodic Other upper respiratory disease (1 source) Other diseases of vocal cords; 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 diseases of vocal cords] Onset: 09-13-2022 Episodic Pancreatic disorders (not diabetes) (20 sources) Acute pancreatitis without necrosis or infection, unspecified; Translations: [Biliary acute pancreatitis without necrosis or infection] Onset: 12-31-2021 Episodic Residual codes; unclassified (1 source) History of anesthesia problem; Translations: [Personal history of other specified conditions] Onset: 04-25-2022 10-01-2022 Episodic Residual codes; unclassified (1 source) History of radiofrequency ablation operation for arrhythmia; 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 specified postprocedural states] Onset: 12-24-2022 01-31-2023 Episodic Septicemia (except in labor) (1 source) Sepsis, unspecified organism; Translations: [SEPSIS UNSPECIFIED ORGANISM] Onset: 01-02-2022 Episodic Spondylosis; intervertebral disc disorders; other back problems (3 sources) Low back pain; Translations: [Low back pain] Onset: 03-01-2020 10-01-2022 Episodic Superficial injury; contusion (1 source) Contusion of left lesser toe(s) without damage to nail, initial encounter; Translations: [CONTUS LT LESR TOES W/O DMG NL INIT] Onset: 11-17-2021 Episodic Syncope (2 sources) Syncope and collapse; Translations: [Syncope and collapse] Onset: 07-20-2022 Episodic Thyroid disorders (17 sources) Disorder of thyroid gland; Translations: [Disorder of thyroid, unspecified] Onset: 12-14-2020 12-14-2020 Episodic Unclassified (1 source) Aneurysm of the ascending aorta, without rupture; Translations: [Aneurysm of the ascending aorta, without rupture] Onset: 05-30-2023 Urinary tract infections (1 source) Urinary tract infection, site not specified; Translations: [UTI SITE NOT SPECIFIED] Onset: 01-02-2022 Episodic NEGATED: Highlighted row has not occurred!Residual codes; unclassified (17 sources) Disease Episodic Results Test Name Value Interpretation Reference Range Facility ALL KAPPA/LAMBDA FREE SERUMo n 06-01-2023 [facility] KAPPA LC FREE SER-MCNC 30.6 mg/L High 3.3 - 19.4 mg/L [facility] Comment on above: Rarely, increased se rum free light chains levels may not be detected or accurately quantified due to prozone phenomenon or in high viscosity samples using this immunoturbidimetric assay. Correlation with other laboratory results and clinical findings is recommended. The [place] Free Light Chain was performed using the Binding Site Optilite immunoturbidimetric method. Result obtained with different assay methods or kits cannot be used interchangeably. [facility] KAPPA LC/LAMBDA SER 1.72 High 0.26 - 1.65 [facility] LAMBDA LC FREE SERPL-MCNC 17.8 mg/L 5.7 - 26.3 mg/L [facility] Comment on above: Rarely, increased se rum free light chains levels may not be detected or accurately quantified due to prozone phenomenon or in high viscosity samples using this immunoturbidimetric assay. Correlation with other laboratory results and clinical findings is recommended. The Lambda Free Light Chain was performed using the Binding Site Optilite immunoturbidimetric method. Result obtained with different assay methods or kits cannot be used interchangeably. Interpretation and review of laboratory results Abnormal [facility] Specimen Type: BLOOD SPECIMEN Ordering Facility: [facility] Address: [address] [place] [address] Original Ordering Provider: MARÍA CORTES [facility] KAPPA/BETHEA,FREE,SERon 2023 Immunoglobulin light chains.kappa.free (S) [Mass/Vol] 30.6 mg/L High 3.3-19.4 [facility] Comment on above: Order Comment: Speci men Type: BLOOD SPECIMENOrdering Facility: [facility] Address: [address] [place] [address] Result Comment: Rare ly, increased serum free light chains levels may not be detected or accurately quantified due to prozone phenomenon or in high viscosity samples using this immunoturbidimetric assay. Correlation with other laboratory results and clinical findings is recommended. The [place] Free Light Chain was performed using the Binding Site Optilite immunoturbidimetric method. Result obtained with different assay methods or kits cannot be used interchangeably. Performed By: #### K LFRS ####[facility] [id number] [place] [address] [place] Immunoglobulin light chains.kappa/Immuno globulin light chains.lambda (S) [Mass ratio] 1.72 High 0.26-1.65 [facility] Comment on above: Order Comment: Speci men Type: BLOOD SPECIMENOrdering Facility: [facility] Address: [address] [place] [address] Performed By: #### K LFRS ####[facility] [id number] [place] [address] [place] Immunoglobulin light chains.lambda.free [Mass/Vol] 17.8 mg/L Normal 5.7-26.3 [facility] Comment on above: Order Comment: Speci men Type: BLOOD SPECIMENOrdering Facility: [facility] Address: [address] [place] [address] Result Comment: Rare ly, increased serum free light chains levels may not be detected or accurately quantified due to prozone phenomenon or in high viscosity samples using this immunoturbidimetric assay. Correlation with other laboratory results and clinical findings is recommended. The Lambda Free Light Chain was performed using the Binding Site Optilite immunoturbidimetric method. Result obtained with different assay methods or kits cannot be used interchangeably. Performed By: #### K LFRS ####[facility] [id number] [address] [place] Office Visiton 05-30-2023 Follow-up visit [id number] Fr freda Antunez Jr. 1955 M [facility] Provider Department [facility] Family History Problem Relation Age of Onset Hypertension Mother Cancer Mother Stroke Mother Hypertension Father Aortic aneurysm Father Cancer Father Aortic aneurysm Paternal Grandfather Sudden Neg Hx Family Status - Relation Status Age at Mother Father Paternal Grandfather Neg Hx Level of Service:59160 ID OFFICE/OUTPATIENT ESTABLISHED LOW MDM 20 MIN Normal [facility] Office Visiton 2023 Follow-up visit [id number] Fr freda Antunez Jr. 1955 Date Provider Department Center 2023 ELYSSA RIOS [facility]ri [facility] Family History Problem Relation Age of Onset Hypertension Mother Cancer Mother Stroke Mother Hypertension Father Aortic aneurysm Father Cancer Father Aortic aneurysm Paternal Grandfather Sudden Neg Hx Family Status - Relation Status Age at Mother Father Paternal Grandfather Neg Hx Level of Service:93960 ID OFFICE/OUTPATIENT ESTABLISHED MOD MDM 30 MIN Normal [facility] Documentationon 05-17-2023 Documentation [id number] Fr freda Antunez Jr. 1955 Date Provider Department Center 05/17/[id number]-GCBKGMSHELLY SARAVIA [facility] History Problem Relation Age of Onset Hypertension Mother Cancer Mother Stroke Mother Hypertension Father Aortic aneurysm Father Cancer Father Aortic aneurysm Paternal Grandfather Sudden Neg Hx Family Status - Relation Status Age at Mother Father Paternal Grandfather Neg Hx Reason for Visit and Comments: Specialty Pharmacy Note: Corlanor [Other] [facility] 36on 05-16-2023 36 Hi! I was looking to Rx ivabradine for Mr. Antunez but I saw there's a contraindication with diltiazem. Do you typically have patients on both or should I stop the diltiazem? He is also on metoprolol 12.5mg BID. Appreciate your help! Harriet [facility] Orders Onlyon 05-16-2023 Orders Only [id number] HarmonyFr freda Jr. 1955 M Date Provider Department Center 05/16/2023 YANDEL VILLEGAS [facility] Family History Problem Relation Age of Onset Hypertension Mother Cancer Mother Stroke Mother Hypertension Father Aortic aneurysm Father Cancer Father Aortic aneurysm Paternal Grandfather Sudden Neg Hx Family Status - Relation Status Age at Mother Father Paternal Grandfather Neg Hx [facility] 3604-26-2023 36 Sounds to be related to his autonomic dysfunction. Please let him know I discussed with Jackie. Recommend we try him on metoprolol, we can start low at 12.5mg BID, and uptitrate. If he does not tolerate it then we can try a different medication. [facility] 36 Hi! Trying to think of how to help Jamil. Do you think we should try to get Corlanor on board for him? Harriet [facility] 36on 04-24-2023 36 Jazzy, please let kasandra ent know his loop recorder hasn't shown any alarms. We can try him on low dose metoprolol 12.5mg twice daily to see if this would help. I don't remember if he's tried metoprolol in the past or not. [facility] 36 Thank you! [facility] 36 Can we lower his thr eshold for alarms to be HR >130? [facility] 36on 04-23-2023 36 Can we lower his thr eshold for alarms to be HR >130? [facility] 36 Are you guadiel able to see if he's had any events on his LOOP? I didn't see anything in Evoke. [facility] Telephoneon 04-19-2023 Telephone [id number] Fr freda Antunez Jr. 1955 M Date Provider Department [place] 04/19/2023 [facility]ZZY [facility] Family History Problem Relation Age of Onset Hypertension Mother Cancer Mother Stroke Mother Hypertension Father Aortic aneurysm Father Cancer Father Aortic aneurysm Paternal Grandfather Sudden Neg Hx Family Status - Relation Status Age at Mother Father Paternal Grandfather Neg Hx [facility] Julian 04-16-2023 L -------- -------- Specimen: [id number] Received: 04/16/23 Status: NIKHIL Michele Num: [id number] Spec Type: Surgical Subm Dr: Charlene Soria MD Tissues: A Colon Biopsy (RANDOM COLON BX) B Colon Biopsy (ASC POLYP) Procedures: HE/Ragini, Gross/Micro L4/2 -------- Age/ Patient Sex Location Account Attending Physician -------- Yoli Antunez 67/M [id number] Charlene Soria MD -------- SPEC NUM: [id number] RECD: 04/16/23 STATUS: NIKHIL BAUTISTA NUM: [id number] RENAN: 04/16/23- [facility] DR: Charlene Soria MD ENTERED: 04/16/[address] [facility] [address]: [place] TYPE: Surgical DEPT: S ORDERED: [...] in one cassette labeled B1. -------- Specimen: [id number] Received: 04/16/23 Status: NIKHIL Bautista Num: [id number] Spec Type: Surgical Subm Dr: Charlene Soria MD Tissues: A Colon Biopsy (RANDOM COLON BX) B Colon Biopsy (ASC POLYP) Procedures: HE/Ragini, Herbie/Micro L4/2 -------- Patient: Yoli Antunez Jr [id number] (Continued) -------- Specimen: [id number] Received: 04/16/23 (Continued) Signed (signature on file) Dony Duenas MD 04/17/232228 -------- Specimen: [id number] Received: 04/16/23 Status: NIKHIL Bautista Num: [id number] Spec Type: Surgical Subm Dr: Charlene Soria MD Tissues: A Colon Biopsy (RANDOM COLON BX) B Colon Biopsy (ASC POLYP) Procedures: HE/4, Gross/Micro L4/2 -------- Patient: Yoli Antunez Jr [id number] (Continued) -------- Specimen: [id number] Received: 04/16/23 (Continued) Microscopic Description A. Two H E slides reviewed. The microscopic examination confirms the diagnosis. B. Two H E slides reviewed. The microscopic examination confirms the diagnosis. CPT Codes 21688s0 -------- -------- Specimen: [id number] Received: 04/16/23 Status: NIKHIL Bautista Num: [id number] Spec Type: Surgical Subm Dr: Charlene Soria MD Tissues: A Colon Biopsy (RANDOM COLON BX) B Colon Biopsy (ASC POLYP) Procedures: HE/4, Gross/Micro L4/2 -------- Patient: Yoli Antunez Jr [id number] (Continued) -------- Signed (signature on file) Dony Duenas MD 04/17/232228 [facility] Office Visiton 04-03-2023 Follow-up visit [id number] Fr freda Antunez Jr. 1955 M [facility] Provider Department [place] 04/03/2023 166-YANDEL SHEN CARD Gerri Hos Family History Problem Relation Age of Onset Hypertension Mother Cancer Mother Stroke Mother Hypertension Father Aortic aneurysm Father Cancer Father Aortic aneurysm Paternal Grandfather Sudden Neg Hx Family Status - Relation Status Age at Mother Father Paternal Grandfather Neg Hx Level of Service:34540 ID OFFICE/OUTPATIENT ESTABLISHED LOW MDM 20-29 MIN Reason for Visit and Comments: Atrial Fibrillation [80] [facility] 36on 03-25-2023 36 Report left in your mailbox. Normal [facility] Patient Messageon 03-18-2023 Patient Message [id number] Fr freda Antunez Jr. 1955 M [facility] Provider Department [place] 03/18/2023JACKIE NI [facility] History Problem Relation Age of Onset Hypertension Mother Cancer Mother Stroke Mother Hypertension Father Aortic aneurysm Father Cancer Father Aortic aneurysm Paternal Grandfather Sudden Neg Hx Family Status - Relation Status Age at Mother Father Paternal Grandfather Neg Hx Normal [facility] APTTon 03-05-2023 ACTIVATED PARTIAL THROMBOPLASTIN TIME IN PPP BY COAGULATION ASSAY 33.2 Seconds Normal 25.0-35.0 [facility] Comment on above: Result Comment: Clin ical significance of the APTT is questionable in the presence of heparin. Performed By: #### L [id number] #### [facility] ([facility]) [address] [place] [address] CBC WITH AUTO DIFFERENTIALon 03-05-2023 Basophils (Bld) [#/Vol] 0.05 10*3/uL Normal 0.00-0.20 [facility] Comment on above: Performed By: #### L [id number] #### [facility] (BEAKER) [address] [place] [address] Basophils/100 WBC (Bld) 0.6 % Normal 0.0-1.0 [facility] Comment on above: Performed By: #### L [id number] #### [facility] (BEUi[facility]) [address] [place] [address] Eosinophils (Bld) [#/Vol] 0.26 10*3/uL Normal 0.00-0.50 [facility] Comment on above: Performed By: #### L [id number] #### [facility] ([facility]) [address] [place] [address] Eosinophils/100 WBC (Bld) 3.0 % Normal 0.0-6.0 [facility] Comment on above: Performed By: #### L [id number] #### [facility] ([facility]) [address] [place] [address] Erythrocyte distribution width (RBC) [Ratio] 14.6 % Normal 11.5-15.0 [facility] Comment on above: Performed By: #### L [id number] #### [facility] ([facility]) [address] [place] [address] ERYTHROCYTE MEAN CORPUSCULAR HEMOGLOBIN CONCENTRATION (G/DL) BY AUTOMATED 33.7 g/dL Normal 32.0-35.0 [facility] Comment on above: Performed By: #### L [id number] #### [facility] ([facility]) [address] [place] [address] Hematocrit (Bld) [Volume fraction] 39.8 % Normal 39.0-55.0 [facility] Comment on above: Performed By: #### L [id number] #### [facility] ([facility]) [address] [place] [address] Hemoglobin (Bld) [Mass/Vol] 13.4 g/dL Normal 13.0-17.0 [facility] Comment on above: Performed By: #### L [id number] #### [facility] ([facility]) [address] [address] Immature granulocytes (Bld) [#/Vol] 0.05 10*3/uL Normal 0.00-0.20 [facility] Comment on above: Performed By: #### L [id number] #### [facility] ([facility]) [address] [place] [address] Immature granulocytes/100 WBC (Bld) 0.6 % Normal 0.0-1.0 [facility] Comment on above: Performed By: #### L [id number] #### [facility] ([facility]) [address] [address] Lymphocytes (Bld) [#/Vol] 2.42 10*3/uL Normal 1.20-4.00 [facility] Comment on above: Performed By: #### L [id number] #### [facility] ([facility]) [address] [place] [address] Lymphocytes/100 WBC (Bld) 27.8 % Normal 20.0-45.0 [facility] Comment on above: Performed By: #### L [id number] #### [facility] ([facility]) [address] [place] [address] MCH (RBC) [Entitic mass] 28.4 pg Normal 27.0-33.0 [facility] Comment on above: Performed By: #### L [id number] #### [facility] ([facility] [address] [place] [address] MCV (RBC) [Entitic vol] 84.3 fL Normal 82.0-98.0 [facility] Comment on above: Performed By: #### L [id number] #### [facility] ([facility]) [address] [place] [address] Monocytes (Bld) [#/Vol] 0.90 10*3/uL Normal 0.10-1.00 [facility] Comment on above: Performed By: #### L [id number] #### [facility] ([facility]) [address] [place] [address] Monocytes/100 WBC (Bld) 10.4 % Normal 5.0-12.0 [facility] Comment on above: Performed By: #### L [id number] #### [facility] ([facility]) [address] [place] [address] Neutrophils (Bld) [#/Vol] 5.01 10*3/uL Normal 1.60-7.60 [facility] Comment on above: Performed By: #### L [id number] #### [facility] ([facility]) [address] [place] [address] Neutrophils/100 WBC (Bld) 57.6 % Normal 40.0-72.0 [facility] Comment on above: Performed By: #### L [id number] #### [facility] ([facility]) [address] [place] [address] NRBC (PER 100 WBCS) BY AUTOMATED COUNT 0.0 % Normal 0 [facility] Comment on above: Performed By: #### L [id number] #### [facility] ([facility]) [address] [place] [address] PLATELETS (10*3/UL) IN BLOOD AUTOMATED COUNT 236 10*3/uL Normal 150-400 [facility] Comment on above: Performed By: #### L [id number] #### [facility] ([facility]) [address] [place] [address] RBC (Bld) [#/Vol] 4.72 10*6/uL Normal 4.20-5.70 [facility] Comment on above: Performed By: #### L [id number] #### [facility] ([facility]) [address] [place] [address] WBC (Bld) [#/Vol] 8.69 10*3/uL Normal 4.00-10.60 [facility] Comment on above: Performed By: #### L [id number] #### [facility] ([facility]) [address] [place] [address] COMPREHENSIVE METABOLIC PANE Julian 03-05-2023 Albumin [Mass/Vol] 4.7 g/dL Normal 3.5-5.7 [facility] Comment on above: Performed By: #### L [id number] #### [facility] ([facility]) [address] [place] [address] ALP [Catalytic activity/Vol] 69 U/L Normal 34-104 [facility] Comment on above: Performed By: #### L [id number] #### [facility] ([facility]) [address] [place] [address] ALT [Catalytic activity/Vol] 17 U/L Normal 7-52 [facility] Comment on above: Performed By: #### L [id number] #### [facility] ([facility]) [address] [place] [address] Anion gap [Moles/Vol] 15 mmol/L Normal 7-20 [facility] Comment on above: Performed By: #### L [id number] #### [facility] ([facility]) [address] [place] [address] AST [Catalytic activity/Vol] 19 U/L Normal 13-39 [facility] Comment on above: Performed By: #### L [id number] #### [facility] ([facility]) [address] [place] [address] Bilirubin [Mass/Vol] 0.4 mg/dL Normal 0.3-1.0 [facility] Comment on above: Performed By: #### L [id number] #### [facility] ([facility] [address] [place] [address] Calcium [Mass/Vol] 7.6 mg/dL Low 8.6-10.3 [facility] Comment on above: Performed By: #### L [id number] #### [facility] ([facility]) [address] [place] [address] Chloride [Moles/Vol] 105 mmol/L Normal 98-107 [facility] Comment on above: Performed By: #### L [id number] #### [facility] ([facility]) [address] [place] [address] CO2 [Moles/Vol] 23 mmol/L Normal 21-31 [facility] Comment on above: Performed By: #### L [id number] #### [facility] ([facility]) [address] [place] [address] Creatinine [Mass/Vol] 1.32 mg/dL High 0.70-1.30 [facility] Comment on above: Performed By: #### L [id number] #### [facility] ([facility]) [address] [place] [address] GLOMERULAR FILTRATION RATE ML/MIN/1.73 SQ M.PREDICTED 58.4 mL/min/1.73m*2 Low >60.0 [facility] Comment on above: Result Comment: The [facility]???s estimated glomerular filtration rate (eGFR) will no [...] individuals. Performed By: #### L [id number] #### [facility] ([facility]) [address] [place] [address] Glucose [Mass/Vol] 95 mg/dL Normal 70-100 [facility] Comment on above: Performed By: #### L [id number] #### [facility] ([facility]) [address] [place] [address] Potassium [Moles/Vol] 3.8 mmol/L Normal 3.5-5.1 [facility] Comment on above: Performed By: #### L [id number] #### [facility] ([facility]) [address] [place] [address] Protein [Mass/Vol] 7.3 g/dL Normal 6.0-8.3 [facility] Comment on above: Performed By: #### L [id number] #### [facility] ([facility]) [address] [place] [address] Sodium [Moles/Vol] 139 mmol/L Normal 136-145 [facility] Comment on above: Performed By: #### L [id number] #### [facility] ([facility]) [address] [place] [address] Urea nitrogen [Mass/Vol] 23 mg/dL Normal 7-25 [facility] Comment on above: Performed By: #### L [id number] #### [facility] ([facility]) [address] [place] [address] UREA NITROGEN/CREATININE (MASS RATIO) IN SER/PLAS 17.4 Normal [facility] Comment on above: Performed By: #### L [id number] #### [facility] ([facility]) [address] [place] [address] CT BRAIN PERFUSIONon 023 CT BRAIN PERFUSION [...] MRI brain recommended. Electronically signed: Damian Collier. [facility] CT HEAD WO IV CONTRASTon CT HEAD [...] intracranial abnormality. Electronically signed: Damian Collier. Normal [facility] CTA HEAD W AND WO IV CONTRAS [...] brain recommended. Electronically signed: Damian Collier. Normal [facility] CTA NECK W AND WO IV CONTRAS [...] MRI brain recommended. Electronically signed: Damian Collier. [facility] EDPROVon 03-05-2023 EDPROV HPI Chief Complaint Patient presents with Unable to speak Patient dropped off from clinic with no report - Aphasic patient - onset was while in clinic. Initial evaluation completed by Dr. Bender at 4:50 PM. Yoli Haley Harmony Garcia is a 67 y/o male presenting to [...] no shortness of breath and no vomiting [place] Coma Scale Score: 15 Patient History Past [...] MR HEAD ANGIO WO IV CONTRAST 07/09/2022 [facility] MR IMAGING MRA NECK WO IV CONTRAST 07/09/2022 MR NECK ANGIO WO IV CONTRAST 07/09/2022 [facility] MR IMAGING NECK SURGERY THYROIDECTOMY Family History [...] with standin (more content not included)... Normal [facility] EDPROV HPI Chief Complaint Patient presents with ??? Unable to speak Patient dropped off from clinic with no report - Aphasic patient - onset was while in clinic. Initial evaluation completed by Dr. Bender at 4:50 PM. Yoli Haley Harmony Garcia is a 67 y/o male presenting to [...] MR HEAD ANGIO WO IV CONTRAST 07/09/2022 [facility] MR IMAGING ??? MRA NECK WO IV CONTRAST 07/09/2022 MR NECK ANGIO WO IV CONTRAST 07/09/2022 [facility] MR IMAGING ??? NECK SURGERY ??? THYROIDECTOMY [...] (more content not included)... Invalid Interpretation Code [facility] Office Visiton 03-05-2023 Follow-up visit [id number] Fr freda Antunez Jr. 1955 M Date Provider Department Center 03/05/2023 J[facility]IE HASTINGS [facility] Family History Problem Relation Age of Onset Hypertension Mother Cancer Mother Stroke Mother Hypertension Father Aortic aneurysm Father Cancer Father Aortic aneurysm Paternal Grandfather Sudden Neg Hx Family Status - Relation Status Age at Mother Father Paternal Grandfather Neg Hx Level of Service:49153 ID OFFICE/OUTPATIENT ESTABLISHED MOD MDM 30-39 MIN Reason for Visit and Comments: Follow-up [425402] Normal [facility] POCT GLUCOSE METER UNSOLICIT ED RESULTSon 03-05-2023 Glucose [Mass/Vol] 96 mg/dL Normal 70-105 [facility] Comment on above: Order Comment: Waive d Testing in the ED is performed under the ED CLIA certificate #[id number]. Result Comment: vbei lfu Performed By: #### L [id number] #### [facility] ([facility]) [address] [place] [address] PROTIME-INRon 03-05-2023 INR IN PPP BY COAGULATION ASSAY 0.98 Normal 0.90-1.10 [facility] Comment on above: Result Comment: ACCC P RECOMMENDED INR FOR WARFARIN THERAPY CONDITION [...] CHEST 1995;108:231S-246S. Performed By: #### L [id number] ####[facility] ([facility])[address] [place] [address] PROTHROMBIN TIME (PT) IN PPP BY COAGULATION ASSAY 13.0 Seconds Normal 12.3-14.8 [facility] Comment on above: Performed By: #### L [id number] ####[facility] ([facility])[address] [place] [address] TROPONIN Ion 03-05-2023 Troponin I.cardiac [Mass/Vol] 0.00 ng/mL Normal 0.00-0.04 [facility] Comment on above: Performed By: #### L [id number] ####[facility] ([facility])[address] [place] [address] CNPaLura 02-05-2023 CNPN Telephone (NIQ) YOLI ANTUNEZ ([id number]) 1955 M Date Time Provider Department 02/05/23 MARÍA PEARL During your visit today, we recorded the following information about you: Aydee Hunter 02/05/2023 12:07 PM Signed Scanned in results from [facility] for review Shivani Ambriz RN 02/05/2023 12:49 PM Signed Copper: YAMILA Carnes, RN Shivani Ambriz RN 02/05/2023 1:01 PM Signed María Pearl APRN.FILTER WASHER AND PRESSER You 7 minutes ago (12:52 PM) This is a normal result. [place] YAMILA Carnes, RN Allergies As of Date: 02/05/2023 Noted Allergy Reaction PENICILLINS 09/12/2000 16 - Unknown TIKOSYN (DOFETILIDE) 07/26/2022 14 - Other: See Comments Comments: Aphasia, dizzy, muscle cramps VANCOMYCIN 07/26/2022 10 - Anaphylaxis Date Reviewed: 01/24/2023 Reviewed by: Peggy Bravo RN - Fully Assessed Reason for Visit: Results [95] Cmt: [facility] Prescriptions as of 02/05/2023 - benazepril [...] Status:Closed by SHIVANI AMBRIZ on 02/05/23 Normal [facility] CT ABDOMEN PELVIS W IV CONTR Adalgisa 02-01-2023 CT ABDOMEN PELVIS W IV CONTRAST Interpreted By: Renaldo Conrad, STUDY: CT ABDOMEN PELVIS W IV CONTRAST; 02/01/2023 2:11 pm INDICATION: Signs/Symptoms:worsening LLQ abdominal pain and watery diarrhea. COMPARISON: None. ACCESSION NUMBER(S): [id number] ORDERING CLINICIAN: YOSSI CHEN TECHNIQUE: CT of [...] Renaldo Conrad 02/01/2023 2:52 PM Dictation workstation: [id number] [facility] CT Abdomen and Pelvis W cont rast Candace 02-01-2023 1. No acute intra-ab dominal or pelvic pathology. 2. Uncomplicated colonic diverticulosis. 3. Trace hiatal hernia. 4. Scattered splenic calcific granulomas likely sequelae of chronic granulomatous infection. MACRO: None Signed by: Renaldo Conrad 02/01/2023 2:52 PM Dictation workstation: [id number] Interpreted By: Renaldo Palmer, STUDY: CT ABDOMEN PELVIS W IV CONTRAST; 02/01/2023 2:11 pm INDICATION: Signs/Symptoms:worsening LLQ abdominal pain and watery diarrhea. COMPARISON: None. ACCESSION NUMBER(S): [id number] ORDERING CLINICIAN: YOSSI CHEN TECHNIQUE: CT of [...] and watery diarrhea. COMPARISON: None. ACCESSION NUMBER(S): [id number] ORDERING CLINICIAN: YOSSI CHEN TECHNIQUE: CT of [...] Renaldo Conrad 02/01/2023 2:52 PM Dictation workstation: [id number] [facility] Work Phone: Radiology Study observation (narrative) [facility] Work Phone: CT Abdomen and Pelvis W cont rast IVOrdered By: Renaldo Conrad on 02-01-2023 [facility] Work Phone: Gastrointestinal pathogens i dentifiedon [...] Rotavirus RNA Not Detected Normal Not Detected [facility] Comment on above: Performed By: #### 7 9390-1 #### RENÉ Hinojosa ([id number]) [facility] ([facility]) [address] [place] [address] Basic metabolic 2000 panelon 01-31-2023 Anion gap [Moles/Vol] 12 mmol/L Normal 10-20 [facility] Comment on above: Performed By: #### 2 4321-2 #### MAYELIN Hill ([id number]) [facility] ([facility]) [address] [place] [address] Calcium [Mass/Vol] 7.2 mg/dL Low 8.6-10.3 [facility] Comment on above: Performed By: #### 2 4321-2 #### MAYELIN Hill ([id number]) [facility] ([facility]) [address] [place] [address] Chloride [Moles/Vol] 106 mmol/L Normal 98-107 [facility] Comment on above: Performed By: #### 2 4321-2 #### MAYELIN Hill ([id number]) [facility] ([facility]) [address] [place] [address] [place] [address] CO2 [Moles/Vol] 28 mmol/L Normal 21-32 [facility] Comment on above: Performed By: #### 2 4321-2 #### MAYELIN Hill ([id number]) [facility] ([facility]) [address] [place] [address] Creatinine [Mass/Vol] 1.65 mg/dL High 0.50-1.30 [facility] Comment on above: Performed By: #### 2 4321-2 #### MAYELIN Hill ([id number]) [facility] ([facility]) [address] [place] [address] GFR/1.73 sq M.predicted MDRD (S/P/Bld) [Vol rate/Area] 45 mL/min/1.73m*2 Low >60 [facility] Comment on above: Result Comment: Calc ulations of estimated GFR are performed using the 2020 CKD-EPI Study Refit equation without the race variable for the IDMS-Traceable creatinine methods. https://jasn.asnjournals.org/content/early//ASN.86092638 88 Performed By: #### 2 4321-2 #### MAYELIN Hill ([id number]) [facility] ([facility]) [address] [place] [address] Glucose [Mass/Vol] 83 mg/dL Normal 74-99 [facility] Comment on above: Performed By: #### 2 4321-2 #### MAYELIN Hill ([id number]) [facility] ([facility]) [address] [place] [address] Potassium [Moles/Vol] 4.3 mmol/L Normal 3.5-5.3 [facility] Comment on above: Performed By: #### 2 4321-2 #### MAYELIN Hill ([id number]) [facility] ([facility]) [address] [place] [address] Sodium [Moles/Vol] 142 mmol/L Normal 136-145 [facility] Comment on above: Performed By: #### 2 4321-2 #### MAYELIN Hill ([id number]) [facility] ([facility]) [address] [place] [address] Urea nitrogen [Mass/Vol] 25 mg/dL High 6- [facility] Comment on above: Performed By: #### 2 4321-2 #### MAYELIN Hill ([id number]) [facility] ([facility]) [address] [place] [address] CNPLaura 01-30-2023 CNPN Telephone (NIQ) YOLI ANTUNEZ ([id number]) 1955 M Date Time Provider Department 01/30/23 MARÍA PEARL During your visit today, we recorded the following information about you: Aydee Hunter 01/30/2023 11:59 AM Signed Scanned in lab from [facility] for review Paul Burns RN 01/30/2023 1:53 PM Signed YAMILA Cage, RN, BA Paul Burns RN 01/30/2023 4:11 PM Signed María Pearl APRN.FILTER WASHER AND PRESSER You 2 hours ago (1:58 PM) I sent a message to the patient. YAMILA Cage, RN, BA Allergies As of Date: 01/30/2023 [...] Encounter Status:Closed by PAUL BURNS on 01/30/23 Normal [facility] Leydi 01-28-2023 CNPN Telephone (NIQ) YOLI ANTUNEZ ([id number]) 1955 M Date Time Provider Department 01/28/23 MARÍA PEARL During your visit today, we recorded the following information about you: Aydee Hunter 01/28/2023 9:37 AM Signed Scanned in results from [facility] for review Paul Burns RN 01/28/2023 9:58 AM Signed YAMILA Cage, RN, BA Paul Burns RN 01/28/2023 10:49 AM Signed María Pearl APRN.FILTER WASHER AND PRESSER You 15 minutes ago (10:27 AM) Thank you. Appears normal. [place] YAMILA Cage, RN, BA Allergies As of Date: 01/28/2023 Noted Allergy Reaction PENICILLINS 09/12/2000 16 - Unknown TIKOSYN (DOFETILIDE) 07/26/2022 14 - Other: See Comments Comments: Aphasia, dizzy, muscle cramps VANCOMYCIN 07/26/2022 10 - Anaphylaxis Date Reviewed: 01/24/2023 Reviewed by: Peggy Bravo, RN - Fully Assessed Reason for Visit: Results [95] Cmt: [facility] Prescriptions as of 01/28/2023 - benazepril [...] Encounter Status:Closed by PAUL BURNS on 01/28/23 [facility] CNOVon 01-24-2023 CNOV Office Visit (SYNCMN ) YOLI ANTUNEZ ([id number]) 1955 M Date Time Provider Department 01/24/23 1:45 PM SYNCOPE OPD NURSE SYNCMN During your visit today, we recorded the following information about you: Peggy Bravo RN 01/24/2023 3:23 PM Signed UNIVERSAL PROTOCOL / SAFETY CHECKLIST Procedure to be performed: [place] for Syncope and Autonomic Disorders: TILT Sign [...] Test done in consult with María Pearl APRN.NEETU . Procedure Start Time: 141 Height 198.1 [...] RN; Briana Emmanuel RN Procedure Finish Time: 1522 Allergies As of Date: 01/24/2023 Noted Allergy Reaction PENICILLINS 09/12/2000 16 - Unknown TIKOSYN (DOFETILIDE) 07/26/2022 14 - Other: See Comments Comments: Aphasia, dizzy, muscle cramps VANCOMYCIN 07/26/2022 10 - Anaphylaxis Date Reviewed: 01/24/2023 Reviewed by: Peggy Bravo RN - Fully Assessed Primary Visit Diagnosis:Autonomic dysfunction [G90.9] Other Visit Diagnoses:Orthostatic lightheadedness [R42] Near syncope [R55] Orthostatic dizziness [R42] Order(s):SALINE LOCK DISCONTINUE [6292402] Order #: [id number]: 1 INTERMITTENT PERIPHERAL DEVICE ([place], [place]) [[id number]] Order #: [id number]: 1 Prescriptions as of 01/24/2023 - benazepril [...] Encounter Status:Closed by PEGGY BRAVO on 01/24/23 Normal [facility] Leydi 01-24-2023 NEETUN Telephone (NIQ) YOLI ANTUNEZ ([id number]) 1955 M Date Time Provider Department 01/24/23 MARÍA PEARL During your visit today, we recorded the following information about you: Cecelia Hunterinah 01/24/2023 2:27 PM Signed Scanned in medical records from [facility] for review Paul Burns RN 01/24/2023 4:54 PM Signed Awaiting other lab results. Will send [facility] once all results are back. María Pearl APRN.FILTER WASHER AND PRESSER You 2 hours ago (2:47 PM) Normal [...] Received Outside Medical Records [3576] Cmt: [facility] Prescriptions as of 02/04/2023 - aspirin, [...] Encounter Status:Closed by PAUL BURNS on 02/04/23 [facility] CNOVon 01-23-2023 CNOV Office Visit (NENMMN ) YOLI ANTUNEZ ([id number]) 1955 M Date Time Provider Department 01/23/23 8:00 AM MARÍA PEARL NENMMN During your visit today, we recorded the [...] this focusing problem? : Moderate María Pearl APRN.[facility] 01/23/2023 10:15 AM Signed Yoli Antunez is a 67 year old male. 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 The lightheadedness and dizziness does NOT [...] with t (more content not included)... Normal [facility] Office Visiton 01-21-2023 Follow-up visit [id number] Fr freda Antunez Jr. 1955 M Date Provider Department Center 01/21/2023 ELYSSA RIOS Family History Problem Relation Age of Onset Hypertension Mother Cancer Mother Stroke Mother Hypertension Father Aortic aneurysm Father Cancer Father Aortic aneurysm Paternal Grandfather Sudden Neg Hx Family Status - Relation Status Age at Mother Father Paternal Grandfather Neg Hx Level of Service:89913 ID OFFICE/OUTPATIENT ESTABLISHED MOD MDM 30-39 MIN Normal [facility] CNOVon 12-31-2022 CNOV Office Visit (NHMNS2 ) YOLI ANTUNEZ ([id number]) 1955 M Date Time Provider Department 12/31/22 3:15 PM SARBJIT RICHARDSON NHMNS2 During your visit today, we recorded the following information about you: Pulse Blood pressure Weight Height 69/minute 123/77 114.8 kg 1.981 m Sarbjit Richardson, MED AIDE.FILTER WASHER AND PRESSER 12/31/2022 5:04 PM Signed [facility] Follow up visit December 31, 2022 Chief [...] He was evaluated by Cardiology at the [facility] for syncopal episodes. Likely a neurocardiogenic type [...] dizziness . put in in the front barrel loader and cleaner and helped him to the house - [...] essentially unremarkable including troponins and ECG 09/11/2022 [facility]- Cardiology - Jackie Banks LAST GREASER wrote: I copied and pasted my initial consult note from [facility] date 07/20/2022 for continuity of care: Hx paroxysmal atrial fibrillation. Undervent a watchman device implant at [facility] 03/06/2022. History of CAD. AAA not increased, [...] Last evaluated one month ago by neurology [facility]. Recent MRA MRV. HPI: Syncope began about [...] hypertension, Lab (more content not included)... Normal [facility] Office Visiton 12-28-2022 Follow-up visit [id number] Fr freda Antunez Jr. 1955 M Date Provider Department Center 12/28/2022 3848-COLLIN GONSALEZ Family History Problem Relation Age of Onset Hypertension Mother Cancer Mother Stroke Mother Hypertension Father Aortic aneurysm Father Cancer Father Aortic aneurysm Paternal Grandfather Sudden Neg Hx Family Status - Relation Status Age at Mother Father Paternal Grandfather Neg Hx Level of Service:10410 ID OFFICE/OUTPATIENT ESTABLISHED MOD MDM 30-39 MIN Normal [facility] Follow Up (General Surgery)o n 12-13-2022 Follow Up (General Surgery) Diagnoses/Problems H/O hiatal hernia (V12.79) (Z87.19) Patient Discussion/Summary followup as needed Provider Impressions Patient continues to do well. He was reassured; followup as needed Chief Complaint Patient is here for follow up History of Present Jygwdsv60-fbxx-zba patient who underwent laparoscopic hiatal hernia repair [...] BY MOUTH TWICE DAILY WITH MEALS Pyridostigmine [place] 60 MG Oral TabletTAKE 1 TABLET BY [...] Oral Tablet Vitamin D (Ergocalciferol) 1.25 MG (74717 UT) Oral CapsuleTAKE 1 CAPSULE BY MOUTH ONCE A WEEK Physical Exam abd: soft, non-distended, minimal tenderness over LUQ incision Signatures Electronically signed by : Yossi Chen MD; Dec 13 2022 10:59AM EST (Author) Normal [place] [facility] Post Op (General Surgery)on 11-29-2022 Post [...] Muscle strain; ALBERT = N; [facility] Patient Discussion/Summary Ice pack to left abdominal [...] here for post op History of Present Vauoqgp43-lbbh-ygm patient who underwent laparoscopic repair of paraesophageal [...] BY MOUTH TWICE DAILY WITH MEALS Pyridostigmine [place] 60 MG Oral TabletTAKE 1 TABLET BY [...] Oral Tablet Vitamin D (Ergocalciferol) 1.25 MG (83008 UT) Oral CapsuleTAKE 1 CAPSULE BY MOUTH ONCE A WEEK Vitals Vital Signs Recorded: 29Nov2022 01:43PM Height6 ft 6 in Ezhydf851 lb BMI Tmtrcwjfzk38.24 kg/m2 BSA Calculated2.49 Physical Exam abd: soft, non-distended, tenderness over LUQ trocar site; no hernia Signatures Electronically signed by : Yossi Chen MD (more content not included)... Normal [facility] Discharge [id number] 023 Discharge Profile2 Discharge Orders: Anticipated Discharge Date: Anticipated Discharge [id number] Hospital Providers: Provider RoleProvider Name Yossi Olguin [...] up Call to Schedule in2 weeks Phone [phone] Commentscall to make appointment Other Clinician Instructions: Other Instructions: Other Clinician InstructionsAvoid bread, salad, steak and carbonated beverages for 2 wks Electronic Signatures: Sivan Costa (MED AIDE-FILTER WASHER AND PRESSER) (Signed 22-Nov-2022 12:04) Authored: Discharge Orders, Provider FINAL REVIEW of Orders, Appointments, Gold Form - Industrial Engineering Summary Yossi Chen) (Signed 22-Nov-2022 12:26) Authored: Discharge Orders, Provider FINAL REVIEW of Orders, Appointments, Other Clinician Instructions Last Updated: 22-Nov-2022 12:26 by Yossi Chen) [facility] Order Reconciliationon 11-22 Order Reconciliation Page 1 Discharge Reconciliation Document Reconciliation Type: Discharge requested on behalf of Yossi Chen (Physician) done by Yossi Chen) Discharge - Partial Reconciliation: 22-Nov-2022 12:05 by: Svian Costa (MED AIDE-[facility]) Discharge - Reconciliation: 22-Nov-2022 12:31 by: [...] not required (more content not included)... Normal [facility] APTTon 11-21-2022 aPTT Coag (Bld) [Time] 34 s Normal 27 - 38 [facility] Comment on above: Result Comment: Note new reference range as of 10/09/2022 at 10:00am. Performed By: #### A PTT ####[facility] [place], [place] [id number] Activated Partial Thrombopla stin Timeon 11-21-2022 aPTT Coag (PPP) [Time] 34 s 27 - 38 [facility] 201 DO Work Phone: Comment [...] applied here Patient Transferred from Other Facility ([facility], [facility],etc)no Patient Identity Verified Bypatient ID Band FULL [...] AlertFor Ebola-like Symptoms: Isolate Patient and Notify Provider/Home Appliance Tech For Contact: Notify Provider/Home Appliance Tech Advance Directive: Advance Directive/DNRyes Advance Directive typeLiving Will Living Will AvailabilityLiving Will not available now Living Will [id number] [place] Fall Screen: History of falling (immediate [...] Communicatenone Learning Preferencesaudio Cultural Considerationsnone Developmental Considerationsnone Jainism Considerationsnone Learning Assessment (Other Learner): Other learner availableno Depression Screen: During the past month, have you often been bothered by feeling down, depressed or hopelessno During the past month, have you often had little interest or pleasure in doing thingsno Have you had any thoughts of harming anyone elseno [place] Suicide: Risk Screen Not Applicable/Able to Answerable [...] Was this within the past 3 monthsno [place] Suicide Riskmoderate Adult Nutrition Screen: Have you [...] Spiritual Screen: Are there any cultural, spiritual, congregation practices/values/needs that are important for us to knowno CAGE: Is this an injured patient at a Trauma Center ([facility]/[place]): no Vaccinations: Vaccination - Influenza Vaccination Screen: (more content not included)... Normal [facility] CBC AND DIFFERENTIALon 11-21 % AUTOMATED IMMATURE GRAN 0.3 % Normal 0.0 - 0.9 [facility] Comment on above: Result Comment: Nataliia ture Granulocyte Count (IG) includes promyelocytes, myelocytes and metamyelocytes but does not include bands. Percent differential counts (%) should be interpreted in the context of the absolute cell counts (cells/L). Performed By: #### C BCDF #### [address] [id number] Basophils (Bld) [#/Vol] 0.04 10*3/uL Normal 0.00 - 0.10 [facility] Comment on above: Performed By: #### C BCDF #### [address] [id number] Basophils/100 WBC (Bld) 0.6 % Normal 0.0 - 2.0 [facility] Comment on above: Performed By: #### C BCDF #### [address] [id number] Eosinophils (Bld) [#/Vol] 0.27 10*3/uL Normal 0.00 - 0.70 [facility] Comment on above: Performed By: #### C BCDF #### [address] [id number] Eosinophils/100 WBC (Bld) 3.9 % Normal 0.0 - 6.0 [facility] Comment on above: Performed By: #### C BCDF #### [address] [id number] Erythrocyte distribution width (RBC) [Ratio] 13.5 % Normal 11.5 - 14.5 [facility] Comment on above: Performed By: #### C BCDF #### [address] [id number] Hematocrit (Bld) [Volume fraction] 40.1 % Low 41.0 - 52.0 [facility] Comment on above: Performed By: #### C BCDF #### [address] [id number] Hemoglobin (Bld) [Mass/Vol] 13.3 g/dL Low 13.5 - 17.5 [facility] Comment on above: Performed By: #### C BCDF #### [address] [id number] Lymphocytes (Bld) [#/Vol] 1.54 10*3/uL Normal 1.20 - 4.80 [facility] Comment on above: Performed By: #### C BCDF #### [address] [id number] Lymphocytes/100 WBC (Bld) 22.3 % Normal 13.0 - 44.0 [facility] Comment on above: Performed By: #### C BCDF #### [address] [id number] MCHC (RBC) [Mass/Vol] 33.2 g/dL Normal 32.0 - 36.0 [facility] Comment on above: Performed By: #### C BCDF #### [address] [id number] MCV (RBC) [Entitic vol] 83 fL Normal 80 - 100 [facility] Comment on above: Performed By: #### C BCDF #### [address] [place] [id number] Monocytes (Bld) [#/Vol] 0.71 10*3/uL Normal 0.10 - 1.00 [facility] Comment on above: Performed By: #### C BCDF #### [address] [id number] Monocytes/100 WBC (Bld) 10.3 % Normal 2.0 - 10.0 [facility] Comment on above: Performed By: #### C BCDF #### [address] [id number] Neutrophils (Bld) [#/Vol] 4.33 10*3/uL Normal 1.20 - 7.70 [facility] Comment on above: Performed By: #### C BCDF #### [address] [id number] Neutrophils/100 WBC (Bld) 62.6 % Normal 40.0 - 80.0 [facility] Comment on above: Performed By: #### C BCDF #### [address] [id number] Platelets (Bld) [#/Vol] 210 10*3/uL Normal 150 - 450 [facility] Comment on above: Performed By: #### C BCDF #### [address] [id number] RBC 4.84 x10E12/L Normal 4.50 - 5.90 [facility] Comment on above: Performed By: #### C BCDF #### [address] [id number] WBC (Bld) [#/Vol] 6.9 10*3/uL Normal 4.4 - 11.3 [facility] Comment on above: Performed By: #### C BCDF #### [address] [id number] COMPREHENSIVE PANELon 2022 Albumin [Mass/Vol] 4.4 g/dL Normal 3.4 - 5.0 [facility] Comment on above: Performed By: #### C MP #### [address] [id number] ALP [Catalytic activity/Vol] 60 U/L Normal 33 - 136 [facility] Comment on above: Performed By: #### C MP #### [address] [id number] ALT [Catalytic activity/Vol] 14 U/L Normal 10 - 52 [facility] Comment on above: Result Comment: Kasandra ents treated with Sulfasalazine may generate falsely decreased results for ALT. Performed By: #### C MP #### [address] [id number] Anion gap [Moles/Vol] 14 mmol/L Normal 10 - 20 [facility] Comment on above: Performed By: #### C MP #### [address] [id number] AST [Catalytic activity/Vol] 13 U/L Normal 9 - 39 [facility] Comment on above: Performed By: #### C MP #### [address] [id number] Bilirubin [Mass/Vol] 0.3 mg/dL Normal 0.0 - 1.2 [facility] Comment on above: Performed By: #### C MP #### [address] [id number] Calcium [Mass/Vol] 7.1 mg/dL Low 8.6 - 10.3 [facility] Comment on above: Performed By: #### C MP #### [address] [id number] Chloride [Moles/Vol] 106 mmol/L Normal 98 - 107 [facility] Comment on above: Performed By: #### C MP #### [address] [id number] Creatinine [Mass/Vol] 1.38 mg/dL High 0.50 - 1.30 [facility] Comment on above: Performed By: #### C MP #### [address] [id number] GFR/1.73 sq M.predicted among non-blacks MDRD (S/P/Bld) [Vol rate/Area] 55 mL/min/{1.73_m2} Abnormal >90 [facility] Comment on above: Result Comment: CALC ULATIONS OF ESTIMATED GFR ARE PERFORMED USING THE 2020 CKD-EPI STUDY REFIT EQUATION WITHOUT THE RACE VARIABLE FOR THE IDMS-TRACEABLE CREATININE METHODS. https://jasn.asnjournals.org/content/early//ASN.16797519 88 Performed By: #### C MP #### [address] [id number] Glucose [Mass/Vol] 105 mg/dL High 74 - 99 [facility] Comment on above: Performed By: #### C MP #### [address] [id number] HCO3 (Bld) [Moles/Vol] 24 mmol/L Normal 21 - 32 [facility] Comment on above: Performed By: #### C MP #### [address] [id number] Potassium [Moles/Vol] 3.8 mmol/L Normal 3.5 - 5.3 [facility] Comment on above: Performed By: #### C MP #### [address] [id number] Protein [Mass/Vol] 7.2 g/dL Normal 6.4 - 8.2 [facility] Comment on above: Performed By: #### C MP #### [address] [id number] Sodium [Moles/Vol] 140 mmol/L Normal 136 - 145 [facility] Comment on above: Performed By: #### C MP #### [address] [id number] Urea nitrogen [Mass/Vol] 23 mg/dL Normal 6 - 23 [facility] Comment on above: Performed By: #### C #### [address] [id number] Clinical Event Note-Surgical first assistanton 11-21-2022 Clinical Event Note-assistant secretary Clinical Event: Clinical Event Note: TopicSurgical construction administrative assistant Details advertising assistant to dr Yossi Chen. Procedure: Laparoscopic repair of Type 3 paraesophageal hernia with Toupet wrap. Provider/Team Contact Info-Pager Fab Law PA-C [phone] Electronic Signatures: Kee Law (PAC) (Signed 21-Nov-2022 14:31) Authored: Clinical Event Note Last Updated: 21-Nov-2022 14:31 by Kee Law (PAC) Normal [facility] Complete Blood Count + Diffe rentialon 11-21-2022 Basophils/100 WBC (Bld) 0.6 % 0.0 - 2.0 [facility] 201 DO Work Phone: Erythrocyte distribution width (RBC) [Ratio] 13.5 % See Below [facility] 201 DO Work Phone: Comment on above: Reference Range: 11. 5 - 14.5 Hematocrit (Bld) [Volume fraction] 40.1 % below low threshold See Below [facility] 201 DO Work Phone: Comment on above: Reference Range: 41. 0 - 52.0 Hemoglobin (Bld) [Mass/Vol] 13.3 g/dL below low threshold See Below [facility] 201 DO Work Phone: Comment on above: Reference Range: 13. 5 - 17.5 Lymphocytes/100 WBC (Bld) 22.3 % See Below [facility] 201 DO Work Phone: Comment on above: Reference Range: 13. 0 - 44.0 MCHC (RBC) [Mass/Vol] 33.2 g/dL See Below [facility] 201 DO Work Phone: Comment on above: Reference Range: 32. 0 - 36.0 MCV (RBC) [Entitic vol] 83 fL 80 - 100 [facility] 201 DO Work Phone: Monocytes/100 WBC (Bld) 10.3 % 2.0 - 10.0 [facility] DO Work Phone: Neutrophils/100 WBC (Bld) 62.6 % See Below [facility] DO Work Phone: Comment on above: Reference Range: 40. 0 - 80.0 Platelets (Bld) [#/Vol] 210 10*3/uL 150 - 450 [facility] DO Work Phone: RBC (Bld) [#/Vol] 4.84 {x10E12/L} See Below [facility] 201 DO Work Phone: Comment on above: Reference Range: 4.5 0 - 5.90 WBC (Bld) [#/Vol] 6.9 10*3/uL 4.4 - 11.3 [facility] 201 DO Work Phone: Complete Blood Count + Differential 0.04 {x10E9/L} See Below [facility] 201 DO Work Phone: Comment on above: Reference Range: 0.0 0 - 0.10 Complete Blood Count + Differential 0.27 {x10E9/L} See Below [facility] 201 DO Work Phone: Comment on above: Reference Range: 0.0 0 - 0.70 Complete Blood Count + Differential 0.71 {x10E9/L} See Below [facility] 201 DO Work Phone: Comment on above: Reference Range: 0.1 0 - 1.00 Complete Blood Count + Differential 1.54 {x10E9/L} See Below [facility] 201 DO Work Phone: Comment on above: Reference Range: 1.2 0 - 4.80 Complete Blood Count + Differential 4.33 {x10E9/L} See Below -[facility] 201 DO Work Phone: Comment on above: Reference Range: 1.2 0 - 7.70 Complete Blood Count + Differential 3.9 % 0.0 - 6.0 [facility] 201 DO Work Phone: Complete Blood Count + Differential 0.3 % 0.0 - 0.9 -[facility] 201 DO Work Phone: Comment on above: Immature Granulocyte Count (IG) includes promyelocytes, myelocytes and metamyelocytes but does not include bands. Percent differential counts (%) should be interpreted in the context of the absolute cell counts (cells/L). Laboratory - Chemistry and C hemistry - challengeon 11-21-2022 Albumin BCP dye [Mass/Vol] 4.4 g/dL 3.4 - 5.0 [facility] 201 DO Work Phone: ALP [Catalytic activity/Vol] 60 U/L 33 - 136 [facility] 201 DO Work Phone: ALT With P-5'-P [Catalytic activity/Vol] 14 U/L 10 - 52 [facility] 201 DO Work Phone: Comment on above: Patients treated wit h Sulfasalazine may generate falsely decreased results for ALT. Anion gap [Moles/Vol] 14 mmol/L 10 - 20 [facility] 201 DO Work Phone: AST With P-5'-P [Catalytic activity/Vol] 13 U/L 9 - 39 -[facility] 201 DO Work Phone: Bilirubin [Mass/Vol] 0.3 mg/dL 0.0 - 1.2 -[facility] 201 DO Work Phone: Calcium [Mass/Vol] 7.1 mg/dL below low threshold 8.6 - 10.3 [facility] 201 DO Work Phone: Chloride [Moles/Vol] 106 mmol/L 98 - 107 [facility] 201 DO Work Phone: CO2 [Moles/Vol] 24 mmol/L 21 - 32 [facility] 201 DO Work Phone: Creatinine [Mass/Vol] 1.38 mg/dL above high threshold See Below [facility] 201 DO Work Phone: Comment on above: Reference Range: 0.5 0 - 1.30 Glucose [Mass/Vol] 105 mg/dL above high threshold 74 - 99 [facility] 201 DO Work Phone: Potassium [Moles/Vol] 3.8 mmol/L 3.5 - 5.3 [facility] 201 DO Work Phone: Protein [Mass/Vol] 7.2 g/dL 6.4 - 8.2 [facility] 201 DO Work Phone: Sodium [Moles/Vol] 140 mmol/L 136 - 145 [facility] 201 DO Work Phone: Urea nitrogen [Mass/Vol] 23 mg/dL 6 - 23 [facility] 201 DO Work Phone: Laboratory - Coagulationon 0 11-21-2022 INR Coag (PPP) [Relative time] 1.0 {INR} 0.9 - 1.1 [facility] DO Work Phone: PT Coag (PPP) [Time] 11.7 s 9.8 - 12.8 [facility] DO Work Phone: Comment on above: Note new reference andrew burton as of 10/09/2022 at 10:00am. No Panel Informationon 11-21 [facility] DO Work Phone: 55 {mL/min/1.73m2} Abnormal >90 [facility] DO Work Phone: Comment on above: CALCULATIONS OF [place] MATED GFR ARE PERFORMED USING THE 2020 CKD-EPI STUDY REFIT EQUATION WITHOUT THE RACE VARIABLE FOR THE IDMS-TRACEABLE CREATININE METHODS.https://jasn.asnjournals.org/content/early/ASN. 7416121101 PT/INRon 11-21-2022 PT Coag (PPP) [Time] 11.7 s Normal 9.8 - 12.8 [facility] Comment on above: Result Comment: Note new reference range as of 10/09/2022 at 10:00am. Performed By: #### P TINR ####[facility] [place], [place] [id number] PT, INR 1.0 Normal 0.9 - 1.1 [facility] Comment on above: Performed By: #### P TINR ####[facility] [place], [place] [id number] Patient Profile - Adult v2on 11-21-2022 Patient [...] applicable(1) Weight in kg113.7 kilogram(s) Weight in mst646.6 pound(s) Weight Methodstated Scale Typebed Height in [...] penicillins: Drug Category, Unknown, Active Electronic Signatures: Triny Ha (CARLOS) (Signed 21-Nov-2022 14:44) Authored: Initial Info, General Health, RSP Based Care, Substance, Health Mgmt, Relationship/Environ, Additional Information Last Updated: 21-Nov-2022 14:44 by Triny Ha (CARLOS) References: 1. Data Referenced From Patient Profile - Preop v3 19-Nov-2022 11:56 Normal [facility] Surgical Pathology Depar tmenton 11-21-2022 [facility] Surgical Pathology Department Name YOLI ANTUNEZ JR. Pathologist: KAITLYN LAW MD Date of Procedure: 11/21/2022 Date Received: 11/21/2022 Date Reported 12/03/2022 Submitting Physician: YOSSI CHEN MD Location: [facility] Copy To/Referring/Attending: RADHA BURRIS MD Other External # FINAL DIAGNOSIS A. HIATAL HERNIA SAC: -- BENIGN ADIPOSE TISSUE AND CONTAINED BENIGN LYMPH NODES. Electronically Signed Out By KAITLYN LAW MD/HOMER By the signature on this report, the individual or group listed as making the Final Interpretation/Diagnosis certifies that they have reviewed this case. Diagnostic interpretation performed at [facility] [address] [place] [address] Clinical History: Physician Contact Number: [phone] Fixative (A): Formalin Clinical Diagnosis History HIATAL HERNIA. Specimens Submitted As: A: HERNIA SAC Gross Description: Received in formalin, labeled with the patient's name and hospital number and hernia sac , are multiple segments of yellow fibroadipose soft tissue aggreagting to 8.0 x 5.0 x 2.5 cm. Areas of induration, nodularity, hemorrhage or necrosis are not seen. Support Services Coordinator sections are submitted in one cassette. LMP lmp/11/27/2022 [facility] Department of Pathology [id number] [place] [address] Normal [facility] Comment on above: Performed By: #### U HCS #### [facility] Surgical Pathology Department [address] [place], [place] [id number] Patient Profile - Preop v3on 11-19-2022 Patient Profile - Preop v3 Patient Profile - Preop: Initial Info: Patient DemographicsName: YOLI ANTUNEZ Date: 1955 Address: [address] [place] [address] Date/Time [id number] 12:28 Primary Phone [phone] Instructions Givenappropriate clothing, bring glasses/contacts case, bring responsible adult as the driver helper (procedure may be cancelled if no driver helper), center location, insurance information, remove jewerly/piercings, time to arrive Prep Instructions Reviewedn/a Instructions/Prep CommentNPO after midnight - bring event recorder info/ID card day of procedure How to be AddressedFred Spoken Language PreferredEnglish Source of Informationpatient Stated Reason for Admissionhiatal hernia repair Primary Contact Name and Numberjames Smith [phone] Limitations on Visitors/Phone Callsnone Medications Brought to Hospitalno General Health: Weight in kg113.5 kilogram(s) Weight in dgg149.2 pound(s) Weight Methodactual (measured) Scale Typestanding Height [...] recorder- right side of chest- checked at [place] kidney stone watchman device cataract detached retina [...] Symptoms/Conditionsdysrhythm ia; hypertension Cardiovascular Management Strategiesmedication therapy; biomedical engineering aide Cardiovascular Symptoms/Conditions Commentcardiac ablation for atrial fib/ watchman device/ Event recorder (asked to bring ID in day of procedure - Checked at [place] office) Endocrine Symptoms/Conditionsthyroid disease Endocrine Management Strategiesmedication [...] Withspouse Living Arrangementshouse Resource/Environmental Concernsnone Anticipated Transition [facility] Anticipated at Transitionnone Tobacco Use: Tobacco Useyes Tobacco Typecigarettes Number of Packs per Day2 Number of yrs15 Pack yrs30 Tobacco Commentquit smoking 1986 Pre-op Checklist: Arrival [id number]-[id number]-7948 Arrival Time05:23 Procedure TypeLaparoscopic Hiatal Hernia repair with Toupet wrap possible feeding tube and upper endoscopy NPOyes Last Food Ihmlte52-Nxi-6190 22:00 Last Clear Fluid Qqzbke46-Bpa-7955 22:00 ID Band On Patientpatient ID (name), [...] Allergies, Ho (more content not included)... Normal [facility] Leydi 11-16-2022 CNPN Telephone (NHMNS2) YOLI ANTUNEZ ([id number]) 1955 M Date Time Provider Department 11/16/22 SARBJIT RICHARDSON BANNERS2 During your visit today, we recorded the following information about you: Darius Jessica Radford 11/16/2022 5:56 PM Signed Received faxed report of medical records done at . Uploaded via [employer], will be available in TabletKiosk for review shortly. Allergies As of Date: 11/16/2022 Noted Allergy Reaction PENICILLINS 09/12/2000 16 - Unknown TIKOSYN (DOFETILIDE) 07/26/2022 14 - Other: See Comments Comments: Aphasia, dizzy, muscle cramps VANCOMYCIN 07/26/2022 10 - Anaphylaxis Date Reviewed: 10/18/2022 Reviewed by: Michaela Polo, RN - Fully Assessed Reason for Visit: Received Outside Medical Records [[id number]] Cmt: Prescriptions as of 11/29/2022 - ergocalciferol [...] Encounter Status:Closed by JESSICA SCOTT on 11/29/22 Normal [facility] Initial Visit (General Surge ry)on 11-12-2022 Initial [...] gas bloat, inability to burp, blood clot, CO and stroke. All questions answered and he is willing to proceed. He will be on a full liquid diet for 3 days after surgery and then advance to a soft diet. Avoid bread Austell steak and carbonated beverage for 2 weeks. Chief Complaint Patient referred by Dr. Daily for a hiatal hernia consult. History of Present Napsfak14 y/o male patient referred for symptomatic hiatal [...] Loop recorder (more content not included)... Normal [facility] Established Visit (Otolaryng ology)on 10-26-2022 Established Visit [...] consent was requested and obtained from YOLI HOUGELUIS ANTONIO on this date, 10/26/2022 03:00 PM , [...] waking up feeling unrefreshed, excessive daytime fatigue. Sinai Sleepiness Scale Score is 16 /24. Fatigue [...] CPAP ( (more content not included)... Normal [facility] Office Visiton 10-19-2022 Follow-up visit [id number] Fr freda Antunez Jr. 1955 M Date Provider Department Center 10/19/2022 VERONICA FOOTE LEX [facility] Family History Problem Relation Age of Onset Hypertension Mother Cancer Mother Stroke Mother Hypertension Father Aortic aneurysm Father Cancer Father Aortic aneurysm Paternal Grandfather Sudden Neg Hx Family Status - Relation Status Age at Mother Father Paternal Grandfather Neg Hx Level of Service:53302 ID OFFICE/OUTPATIENT ESTABLISHED MOD MDM 30-39 MIN Normal [facility] Order Reconciliationon 10-15 Order Reconciliation Page 1 Discharge Reconciliation Document Reconciliation Type: Discharge requested on behalf of Arabella Terry (Physician) done by Arabella Terry () Discharge - Reconciliation: 15-Oct-2022 11:14 by: Arabella [...] 1.25 milligram(s) orally once a day Normal [facility] Patient Profile - Preop v3on 10-12-2022 Patient Profile - Preop v3 Patient Profile - Preop: Initial Info: Patient DemographicsName: YOLI ANTUNEZ Date: 1955 Address: [address] [place] [address], [address] [place] [address] Primary Phone [phone] Instructions Giventime to arrive, Arrival time of 0930 for surgery time of 1100 How to be Addressedfrederick Spoken Language PreferredEnglish Stated Reason for Admissionsleep study Primary Contact Name and Numbersee facesheet Medications Brought to Hospitalno General Health: Weight in kg116.6 kilogram(s) Weight in shy929 pound(s) Height in feet6 feet Height in inches5.95 inch(es) Height in cm197.9 centimeter(s) BMI (kg/m2)29.771 square meter Patient or Family Member Reaction to Anesthesiapatient reaction Patient Reaction to Anesthesiaawakening delayed Blood Avoidance/Restrictionsnone Previous Transfusion Reactionnot applicable Health Mgmt: Symptoms/Conditions Managed at Homecardiovascular; endocrine Barriers to Managing Healthnone Relationship/Environ: Lives Withspouse Living Arrangementshouse Resource/Environmental Concernsnone Anticipated Transition [facility] Anticipated at Transitionnone Tobacco Use: Tobacco Useno Pre-op Checklist: Arrival Mpjr36-Yhj-6198 Arrival Time09:59 Procedure Typesleep study NPOyes Last Food Zgdizd54-Xjm-9804 00:00 Last Clear Fluid Hisrrs21-Nrj-0628 00:00 ID Band On Patientpatient ID (name), [...] Category, Unknown, Active Electronic Signatures: Letty Godfrey (CARLOS) (Signed 15-Oct-2022 10:00) Authored: Initial Info, General Health, Health Mgmt, Relationship/Environ, Tobacco Use, Pre-op Checklist, Additional Information Lupe Villarreal) (Signed 12-Oct-2022 13:08) Authored: Initial Info, Additional Information Last Updated: 15-Oct-2022 10:00 by Letty Godfrey) Normal [facility] Electrocardiogram 12 Leadon 10-10-2022 Electrocardiogram 12 Lead Ventricular Rate 70 Atrial Rate 70 P-R Interval 194 QRS Duration 78 Q-T Interval 420 QTC Calculation(Bazett) 453 P [place] 38 R [place] 13 T [place] 66 QRS Count 12 Q Onset 222 P Onset 125 P Offset 161 T Offset 432 QTC Fredericia 442 Diagnosis Class Normal Diagnosis Normal sinus rhythm Normal ECG No previous ECGs available Confirmed by Aliya Candelaria ([id number]) on 10/14/2022 8:34:16 PM Normal [facility] No Panel Informationon 10-10 [email or web address]?Ret rieveTestByDateTime?PatientI U=[id number]&Date=10-10-2022& Time=14%3a24%3a36%3a00&TestT ype=ECG&Site=10&OutputType=P DF&Ext=PDF [facility] Work Phone: Normal sinus rhythm [facility] Work Phone: [phone] Normal [facility] Work Phone: [phone] 1 [facility] Work Phone: [phone] 1 [facility] Work Phone: [phone] 1 [facility] Work Phone: [phone] 1 [facility] Work Phone: [phone] 1 [facility] Work Phone: [phone] 1 [facility] Work Phone: [phone] 1 [facility] Work Phone: [phone] 1 [facility] Work Phone: [phone] 1 [facility] Work Phone: [phone] 1 [facility] Work Phone: [phone] 1 [facility] Work Phone: [phone] 1 [facility] Work Phone: [phone] 1 [facility] Work Phone: [phone] 1 [facility] Work Phone: [phone] Established Visit (Otolaryng ology)on 09-25-2022 Established Visit [...] symptoms appear more central. Sees neurology at [facility] who suspects he may have autonomic dysfunction - F/u with [facility] neurology as scheduled 2) ADA, CPAP intolerance [...] telehealth visit. Dysphagia follow-up History of Present Libdvle51 year old man with history of intermittnet [...] more in his throat. Seeing neurology at [facility] for his intermittent aphasia. Still awaiting manometry [...] following interpretation. (more content not included)... Normal [facility] Established Visit (Otolaryng ology)on 09-24-2022 Established Visit [...] assist you through your ENT care at [facility]. Dr. Perrin is an ENT surgeon who specializes in voice, airway and swallowing issues. This means that she specializes in taking care of patients with complex voice, airway and swallowing problems. Dr. Perrin's office number is [phone]. Please use this number to contact her and her care team regardless of which office you use to access care. This number is the most direct way to communicate with all the members of the care team. Dr. Perrin?s escrow secretary answers the office phone from 9am-4pm Mon-Fri. Call [phone] and push 2. She can help you with scheduling of appointments, general questions and information. You may need to leave a message if she is helping another patient. In this case, someone from the team will call you back the same day if you leave your message before 3pm, or the next business morning. Dr. Perrin?s nurse and can be reached by calling [phone]. We make every effort to return phone calls the same day. If you are in need of urgent assistance after hours, please call [phone] and ask for ENT network operations project manager. Dr. Perrin works closely with speech therapists as they work together to help solve your issues with speech and swallowing. You may see a speech therapist during your appointment if Dr. Perrin feels this is needed. If you need to reach speech therapy to talk with a therapist or to schedule an appointment, please call [phone]. Others who may be included in your care are dieticians, social workers, audiologists, neurologists, and physical therapists. Dr. Perrin will provide these referrals as needed. Please let her know if you would like to request a specific referral. For your convenience, Dr. Perrin sees patients at different [facility] locations including the [facility][1], and [facility] at the [facility]. While we try to make your [...] healthcare goals. By signing my name below, I, Lillian Salomon, attest that this documentation has been prepared [...] discuss his care with Dr. Long at [facility] to understand current treatment plans 2. He [...] Michaud. He (more content not included)... Normal [facility] Established Visit (Otolaryngology) No report was sent Normal [employer] [facility] Patient Messageon 09-19-2022 Patient Message [id number] Fr freda Antunez Jr. 1955 M Date Provider Department Center 09/19/2022 JACKIE HASTINGS [facility] Family History Problem Relation Age of Onset Hypertension Mother Cancer Mother Stroke Mother Hypertension Father Aortic aneurysm Father Cancer Father Aortic aneurysm Paternal Grandfather Sudden Neg Hx Family Status - Relation Status Age at Mother Father Paternal Grandfather Neg Hx Normal [facility] No Panel Informationon 09-13 [email or web address] } [facility] Work Phone: [facility] Work Phone: [facility]tol[facility]o logy-[facility] 4100 Work Phone: [facility] Surgical Pathology Depar tmenton 09-13-2022 [facility] Surgical Pathology Department Name YOLI ANTUNEZ JR. Pathologist: LIZZ LINN MD Date of Procedure: [...] reviewed this case. [place] [address] Clinical History: R/O Esophagitis and metaplasia Specimens Submitted As: A: GE JUNCTION COLD FORCEPS Gross Description: Received in formalin, labeled with the patient's name and hospital number and A , are 2 fragments of martin, soft tissue aggregating to 0.5 x 0.2 x 0.2 cm. The specimen is submitted in toto in one cassette. [facility] sbs/09/21/2022 [facility] Department of Pathology [address] [place] [address] Normal [facility] Comment on above: Performed By: #### U [facility] #### [facility] Surgical Pathology Department [address] [place] [address] Upper GI endoscopyon 023 Upper GI endoscopy PATIENTNAME Patient Name: Yoli Antunez EXAMDATE Procedure Date: 09/13/2022 3:41 PM PATIENTID PATIENTACCOUNTNUM PATIENTDOB Date of : 1955 ADMITTYPE Admit Type: Outpatient PATIENTROOM Site: [place] Procedure Room 2 ETHNICITY Ethnicity: Not or RACE Race: White PROVDR Attending MD: Ruby Daily MD, [id number] ENDOPROCEDURENAME Procedure: Upper GI endoscopy INDICATION Indications: Dysphagia, cricopharyngeal web PRIMARYPROVIDER Providers: Ruby Daily MD (Doctor), Vale Mercado RN (Nurse), Sabina Atkins, Inspector Subassemblies EDREFPROVIDER Referring: Ruby Daily MD CURRENT_MEDS Medicines: [...] medications. CPT_CODES Procedure Code(s): --- Professional --- 70600, Moderate sedation services provided by the same physician or other qualified health care center manager performing the diagnostic or therapeutic service that the sedation supports, requiring the presence of an independent trained observer to assist in the monitoring of the patient's level of consciousness and physiological status; initial 15 minutes of intraservice time, patient age 5 years or older [address], Unlisted procedure, esophagus ICD_CODES Diagnosis Code(s): --- Professional --- J38.3, O (more content not included)... Normal [facility] Office Visiton 09-11-2022 Follow-up visit [id number] Fr freda Antunez Jr. 1955 M Date Provider Department Center 09/11/2022 JACKIE HASTINGS [facility] Family History Problem Relation Age of Onset Hypertension Mother Cancer Mother Stroke Mother Hypertension Father Aortic aneurysm Father Cancer Father Aortic aneurysm Paternal Grandfather Sudden Neg Hx Family Status - Relation Status Age at Mother Father Paternal Grandfather Neg Hx Level of Service:67786 ID OFFICE/OUTPATIENT ESTABLISHED LOW MDM 20-29 MIN Reason for Visit and Comments: Follow-up [807881] Normal [facility] SURGICAL PATHOLOGY RESULTSon 09-06-2022 Pathology Report Name BROOKE ANTUNEZ JR. Pathologist: MAYELIN AVILEZ MD Date [...] ABNORMALITIES. Electronically Signed Out By MAYELIN AVILEZ MD/[facility] By the signature on this report, the individual or group listed as making the Final Interpretation/Diagnosis certifies that they have reviewed this case. Diagnostic interpretation performed at [facility] [address] [facility] [address] Clinical History: A) R/O H.pylori B) R/O [...] in toto in one cassette. DMB dmb/09/04/2022 [facility] Department of Pathology [address] [place] [address] Established Visit (Otolaryng ology)on 09-04-2022 Established Visit [...] obtained from YOLI HARMONY on this date, 09/04/2022 11:30 AM , for a telehealth visit. Dysphagia follow-up History of Present [age]vuvmwq29 year old man with history of dysphagia [...] inflammatory na (more content not included)... Normal [facility] 36on 09-03-2022 36 Pt has working loop recorder. Sometimes patients are ordered for a 30 day holter monitor even if they have an implanted loop recorder. Normal [facility] EGDon 08-30-2022 Beth Diego MD - 10/15/2022 Patient Name: Yoli Antunez Procedure Date: 08/30/2022 7:32 AM Date of : 1955 Admit Type: Outpatient Site: [place] Procedure Room 5 Ethnicity: Not or Race: White Attending MD: ELISEO Williamson, [id number] Procedure: Upper GI endoscopy Indications: Dysphagia for 5 years to both liquids and solids Patient Profile: This is a 67 year old male. Refer to note in patient chart for documentation of history and physical. Providers: ELISEO Williamson (Doctor), Jaylen Lo RN (Nurse), Florentino De Dios, Inspector Subassemblies, Kristin Mcdaniels RN (Nurse) Referring: Radha Burris [...] specimen was done by the nurse and test lab technician using the patient's name and medical record number. Estimated blood loss was minimal. A single 3 mm nodule was found at the gastroesophageal junction, 39 cm from the incisors. Biopsies were taken with a cold forceps for histology. Verification of patient identification for the specimen was done by the nurse and test lab technician using the patient's name and [...] specimen was done by the nurse and test lab technician using the patient's name and [...] right naris un (more content not included)... [facility] Work Phone: Radiology Study observation (narrative) [facility] Work Phone: EGDOrdered By: Beth Diego on 08-30-2022 [facility] Work Phone: No Panel Informationon 08-30 Name BROOKE ANTUNEZ GHASSAN Haley JR. Pathologist: MAYELIN AVILEZ MD Date of Procedure: 08/30/2022 Date Rec -[facility] Work Phone: [email or web address] } [facility] Work Phone: [facility] [...] mL/hr IntraVenous Clinician Notes: Christen-operative order ONLY 11-May-2023 07:17 Lactated Ringers Infusion is not required [...] 1.25 milligram(s) orally once a day Normal [facility] Surgical Pathology Department Name HARMONYYOLI JR. Pathologist: MAYELIN AVILEZ MD Date of Procedure: 08/30/2022 Date Received: 08/30/2022 Date Reported 09/06/2022 Submitting Physician: BETH DIEGO MD Location: [place] Copy To/Referring/Attending: RUBY DAILY M.D. Other External # FINAL DIAGNOSIS A. STOMACH, BIOPSY: --REACTIVE GASTROPATHY, NO HELICOBACTER IDENTIFIED. B. GASTROESOPHAGEAL JUNCTION NODULE, BIOPSY: --INFLAMMATORY HYPERPLASTIC POLYP, NO DYSPLASIA IDENTIFIED. C. DISTAL ESOPHAGUS, BIOPSY AT 34 CM: --SQUAMOUS EPITHELIUM, NO SIGNIFICANT HISTOPATHOLOGICAL ABNORMALITIES. D. MID ESOPHAGUS, BIOPSY AT 29 CM: --SQUAMOUS EPITHELIUM, NO SIGNIFICANT HISTOPATHOLOGICAL ABNORMALITIES. Electronically Signed Out By MAYELIN AVILEZ MD/MLC By the signature on this report, the individual or group listed as making the Final Interpretation/Diagnosis certifies that they have reviewed this case. Diagnostic interpretation performed at [place] [address] Clinical History: A) R/O H.pylori B) R/O [...] in toto in one cassette. DMB dmb/09/04/2022 [facility] Department of Pathology [address] [place] [address] Normal [facility] Comment on above: Performed By: #### U [facility] #### [facility] Surgical Pathology Department [address] [place] [address] Upper GI endoscopyon 023 Upper GI endoscopy PATIENTNAME Patient Name: Yoli Antunez EXAMDATE Procedure Date: 08/30/2022 7:32 AM PATIENTID PATIENTACCOUNTNUM PATIENTDOB Date of : 1955 ADMITTYPE Admit Type: Outpatient PATIENTROOM Site: [place] Procedure Room 5 ETHNICITY Ethnicity: Not or RACE Race: White PROVDR Attending MD: ELISEO Williamson, [id number] ENDOPROCEDURENAME Procedure: Upper GI endoscopy INDICATION Indications: Dysphagia for 5 years to both liquids and solids PTPROFILE Patient Profile: This is a 67 year old male. Refer to note in patient chart for documentation of history and physical. PRIMARYPROVIDER Providers: ELISEO Williamson (Doctor), Jaylen Lo RN (Nurse), Florentino De Dios, Inspector Subassemblies, Kristin Mcdaniels RN (Nurse) EDREFPROVIDER Referring: Radha Burris MD REQMD Provider Care Team: Ruby Daily MD CURRENT_MEDS [...] specimen was done by the nurse and test lab technician using the patient's name and medical record number. Estimated blood loss was minimal. A single 3 mm nodule was found at the gastroesophageal junction, 39 cm from the incisors. Biopsies were taken with a cold forceps for histology. Verification of patient identification for the specimen was done by the nurse and test lab technician using the patient's name and [...] specimen was done by the nurse and test lab technician using the patient's name and [...] prepyloric re (more content not included)... Normal [facility] Established Visit (Otolaryng ology)on 08-17-2022 Established Visit [...] waking up feeling unrefreshed, excessive daytime fatigue. Sinai Sleepiness Scale Score is 16 /24. Fatigue [...] CPAP; however, (more content not included)... Normal [facility] Tobacco Screening.on 023 Adult depression screening assessment No [facility] [facility] 302 Work Phone: Fall risk assessment a) No falls within the last year [facility] [facility] Work Phone: Tobacco use status CPHS b) No [facility] [facility] Work Phone: 36on 08-14-2022 36 [...] up for it also. Thanks Jamil Van [facility] BENEFITS PROCESSOR (Progress Note)on 2022 BENEFITS PROCESSOR (Progress Note) Therapy Diagnosis Assessed Dysphagia, oropharyngeal [...] YOLI ANTUNEZ on this date, 08/13/2022 03:15 PM , [...] to doctors? appointments. Primary Language for learning: Jordanian. Insurance Insurance reviewed Visit number: 3 Onset Date: 2022 Medicare Certification Period: Beginnin2022 Endin2022 Subjective Living Environment: home Patient arrival: independent Patient alert and ready to participate in telehealth visit this date. Objective Progress to date: USP goals: 1. Patient will safety tolerate the [...] verbalized understanding and agreement: yes CPT Code 36978 Treatment of swallowing dysfunction and/or oral function for feeding Signatures Electronically signed by : Yoanna Quigley CCC-BENEFITS PROCESSOR; Aug 13 2022 3:44PM EST (Author) Normal [facility] GI ESOPHAGRAMon 08-10-2022 GI ESOPHAGRAM Patient Name: YOLI ANTUNEZ STUDY: GI ESOPHAGRAM; ; 08/10/2022 1:49 pm INDICATION: assess motility, r/o achalasia, assess mass/lesions R13.12: Dysphagia, oropharyngeal phase. COMPARISON: None. ACCESSION NUMBER(S): [id number] ORDERING CLINICIAN: RUBY DAILY TECHNIQUE: Fluoroscopic guided single and double contrast barium esophagram. FINDINGS: Billboard Mechanic view of the chest, abdomen shows loop [...] Electronically signed by: JAE SOUTH MD Normal [facility] Radiologyon 08-10-2022 XR Esophagus Views W contrast PO Normal [facility] Work Phone: 36on 08-07-2022 36 Patient will use the [facility] in [place] if ok to prescribe Normal [facility] 36on 08-02-2022 36 Yes, he is willing t o try and use a good rx [facility] 36 He calls back to rep ort insurance will not cover pyridostigmine [facility] 36on 08-01-2022 36 Patient has increase d headaches and dizziness on the venlafaxine. I told him to stop over the next few days since he hasn't been on it for long. He said he is willing to try pyridostigmine as mentioned in your note [facility] Established Visit (Otolaryng ology)on 07-31-2022 Established Visit [...] a telehealth visit. Swallow History of Present Feegywa81 year old man with history of dysphagia [...] and stasis and intraesophageal regurgitation. Laryngoscopy 07/17/22 (Ayd[place]) - mild vocal cord [...] 20 MG (more content not included)... Normal [employer] Tobacco Screening.on 023 Adult depression screening assessment No [facility] Work Phone: Fall risk assessment b) One or more falls in the last year [facility] [employer] Phone: Tobacco use status CPHS b) No [place] Work Phone: BENEFITS PROCESSOR (Progress Note)on 2022 BENEFITS PROCESSOR (Progress Note) No report was sent Normal [facility] BENEFITS PROCESSOR (Progress Note) Therapy Diagnosis Assessed Dysphagia, oropharyngeal [...] to doctors? appointments. Primary Language for learning: Jordanian. Insurance Insurance reviewed Visit number: 2 Onset Date: 2022 Medicare Certification Period: Beginnin2022 Endin2022 Subjective Living Environment: home Patient arrival: independent Patient alert and ready to participate in telehealth visit this date. Objective Progress to date: USP goals: 1. Patient will safety tolerate the [...] verbalized understanding and agreement: yes CPT Code 94458 Treatment of swallowing dysfunction and/or oral function for feeding Signatures Electronically signed by : Yoanna Quigley [facility]-BENEFITS PROCESSOR; Jul 31 2022 4:43PM EST (Author) Normal [facility] Consulton 07-20-2022 Consult [id number] Fr freda Antunez 1955 M Date Provider Department Center 07/20/2022 [facility] CARD [facility] Heart[facility]AS Family History Problem Relation Age of Onset Hypertension Mother Hypertension Father Aortic aneurysm Father Aortic aneurysm Paternal Grandfather Sudden Neg Hx Family Status - Relation Status Age at Mother Father Paternal Grandfather Neg Hx Level of Service:[id number] ID OFFICE/OUTPATIENT ESTABLISHED MOD MDM 30-39 MIN Normal [facility] GI COMP PHARYNGEAL SPEECH EV [place] 07-18-2022 GI COMP PHARYNGEAL SPEECH EVAL Patient Name: YOLI ANTUNEZ STUDY: GI COMP PHARYNGEAL SPEECH EVAL;; 07/18/2022 11:55 am INDICATION: dysphagia 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 COMPARISON: None. ACCESSION NUMBER(S): [id number] ORDERING CLINICIAN: RANJANA PERRIN TECHNIQUE: MBSS completed. Informed verbal consent obtained prior to completion of exam. Trials of thin, nectar thick, honey thick, puree, soft-solids, and regular solids given. Fluoroscopy time : 3 minutes, 2 seconds. BENEFITS PROCESSOR: Osmel Lozano M.S., [facility]-BENEFITS PROCESSOR Phone/Pager: Can be contacted via [employer] or SPEECH FINDINGS: Reason for referral: A [...] a home program 2-3 times per day. 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 goals: Patient will be able to tolerate [...] regarding the esophageal phase of the swallow. BENEFITS PROCESSOR impressions with severity rating: Patient presents with [...] nectar thi (more content not included)... Normal [facility] No Panel Informationon 07-18 Normal MG-Otolaryngo logy-[facility] Voice Work Phone: Swallow Evaluation v2-Modifi ed Barium Swallow, SLPon 07-18-2022 Swallow Evaluation v2-Modified Barium Swallow, BENEFITS PROCESSOR Rehab: Info: Time IN11:05 Time OUT11:55 Total Treatment [id number] Evaluation TypeModified Barium Swallow, BENEFITS PROCESSOR Impression: Assessment (Swallow Eval)BENEFITS PROCESSOR impressions with severity rating: [Patient presents with [...] of the EMR/AEMR Electronic Signatures: Osmel Lozano (BENEFITS PROCESSOR) (Signed 18-Jul-2022 14:17) Authored: Info, Impression Last Updated: 18-Jul-2022 14:17 by Osmel Lozano (BENEFITS PROCESSOR) Normal [facility] Established Visit (Otolaryng ology)on 07-17-2022 Established Visit [...] assist you through your ENT care at [facility]. Dr. Perrin is an ENT surgeon who specializes in voice, airway and swallowing issues. This means that she specializes in taking care of patients with complex voice, airway and swallowing problems. Dr. Perrin's office number is [phone]. Please use this number to contact her and her care team regardless of which office you use to access care. This number is the most direct way to communicate with all the members of the care team. Dr. Perrin?s escrow secretary answers the office phone from 9am-4pm Mon-Fri. Call [phone] and push [phone]. She can help you with scheduling of appointments, general questions and information. You may need to leave a message if she is helping another patient. In this case, someone from the team will call you back the same day if you leave your message before 3pm, or the next business morning. Dr. Perrin?s nurse and can be reached by calling [phone]. We make every effort to return phone calls the same day. If you are in need of urgent assistance after hours, please call [phone] and ask for ENT network operations project manager. Dr. Perrin works closely with speech therapists as they work together to help solve your issues with speech and swallowing. You may see a speech therapist during your appointment if Dr. Perrin feels this is needed. If you need to reach speech therapy to talk with a therapist or to schedule an appointment, please call [phone]. Others who may be included in your care are dieticians, social workers, audiologists, neurologists, and physical therapists. Dr. Perrin will provide these referrals as needed. Please let her know if you would like to request a specific referral. For your convenience, Dr. Perrin sees patients at different [facility] locations including the [facility][1], and [facility] [place] at the [facility]. While we try to make your [...] healthcare goals. By signing my name below, I, Lillian Salomon, attest that this documentation has been prepared under the direction and in the presence of Dr. Ranjana Perrin MD. All medical record entries made by the Lillian were at my direction and personally dictated [...] on Omeprazole (more content not included)... Normal [facility] Tobacco Screening.on 023 Adult depression screening assessment No -Otolaryngo [facility] 4100 Work Phone: Fall risk assessment b) One or more falls in the last year -Otolaryngo [facility] 4100 Work Phone: Tobacco use status [facility] b) [facility] Phone: MR HEAD ANGIO [...] focal stenosis, occlusion, or aneurysmal dilatation. Complete [place]. Electronically signed: Cher Castaneda. Normal [facility] Comment on above: Order Comment: MRV/M RA BRAIN AND MRA NECK ORDER IN [facility] ORDERING COMMENTS NO [...] if clinically indicated. Electronically signed: Devante Cox. [facility] Comment on above: Order Comment: MRV/M RA BRAIN AND MRA NECK ORDER IN [facility] ORDERING COMMENTS NO CONTRAST 36on 06-07-2022 36 What if we did 2 tab lets of diltiazem 180mg CD tablets? His insurance covered this dose in the past. Or did he get new insurance? [facility] BNPon 06-04-2022 Natriuretic peptide B (Bld) [Mass/Vol] 182.0 pg/mL Normal <=900.0 [facility] Comment on above: Performed By: #### H STROPN #### [facility] [address] [place] [address] Dr. Kulwant Brennan CARDIAC MAYELIN ADMITon 023 CK [Catalytic activity/Vol] 86 U/L Normal 39-308 [facility] Comment on above: Performed By: #### L ACT #### [facility] [address] [address] [address] Kulwant Brennan CK.MB [Mass/Vol] 0.84 ng/mL Normal <=3.[address] [facility] Comment on above: Performed By: #### L ACT #### [facility] [address] [address] [address] Kulwant Brennan HSTROP 4.6 pg/mL Normal 4.0-76.1 [facility] Comment on above: Result Comment: CUT- OFF POINTS HAVE BEEN ESTABLISHED BASED ON THE FOURTH UNIVERSAL DEFINITIONS OF MYOCARDIAL INFARCTION. THE UPPER REFERENCE LIMIT (URL) OF TROPONIN, DEFINED THE 99TH PERCENTILE OF cTnI DISTRIBUTION IN A REFERENCE POPULATION, HAS BEEN CONFIRMED THE DECISION THRESHOLD FOR CO DIAGNOSIS. Performed By: #### L ACT #### [facility] [address] [address] [address] Kulwant Brennan EFRAIN 52 ng/mL Normal 16-96 [facility] Comment on above: Performed By: #### L ACT #### [facility] [address] [address] [address] Kulwant Brennan CBC AUTO DIFFon 06-04-2022 BASO # 0.1 103/ul Normal 0.0-0.1 [facility] Comment on above: Performed By: #### L ACT #### [facility] [address] [address] [address] Kulwant Brennan Basophils/100 WBC (Bld) 0.5 % Normal 0.2-2.0 [facility] Comment on above: Performed By: #### L ACT #### [facility] [address] [address] [address] Kulwant Brennan EO # 0.2 103/ul Normal 0.0-0.7 [facility] Comment on above: Performed By: #### L ACT #### [facility] [address] [address] [address] Kulwant Brennan Eosinophils/100 WBC (Bld) 2.6 % Normal 0.9-7.0 [facility] Comment on above: Performed By: #### L ACT #### [facility] [address] [place] [address] Dr. Kulwant Brennan Erythrocyte distribution width (RBC) [Ratio] 15.0 % Normal 11.0-15.0 [facility] Comment on above: Performed By: #### L ACT #### [facility] [address] [place] [address] Dr. Kulwant Brennan Hematocrit (Bld) [Volume fraction] 42.3 % Normal 42.0-54.0 [facility] Comment on above: Performed By: #### L ACT #### [facility] [address] [address] [address] Kulwant Brennan Hemoglobin (Bld) [Mass/Vol] 14.0 g/dL Normal 14.0-18.0 [facility] Comment on above: Performed By: #### L ACT #### [facility] [address] [address] [address] Kulwant Brennan IG # 0.10 10e3/ul Critically high 0.00-0.03 [facility] Comment on above: Performed By: #### L ACT #### [facility] [address] [address] [address] Kulwant Brennan IG % 1.1 % Critically high 0.0-0.5 [facility] Comment on above: Performed By: #### L ACT #### [facility] [address] [place] [address] Dr. Kulwant Brennan LYMPH # 2.7 103/ul Normal 1.2-3.8 [facility] Comment on above: Performed By: #### L ACT #### [facility] [address] [address] [address] Kulwant Brennan Lymphocytes/100 WBC (Bld) 29.1 % Normal 20.5-60.0 [facility] Comment on above: Performed By: #### L ACT #### [facility] [address] [place] [address] Dr. Kulwant Brennan MANUAL DIFF REQ NO Normal [facility] Comment on above: Performed By: #### L ACT #### [facility] [address] [address] [address] Kulwant Brennan MCH (RBC) [Entitic mass] 27.0 pg Normal 25.9-34.0 [facility] Comment on above: Performed By: #### L ACT #### [facility] [address] [address] [address] Kulwant Brennan MCHC (RBC) [Mass/Vol] 33.1 g/dL Normal 29.9-35.2 [facility] Comment on above: Performed By: #### L ACT #### [facility] [address] [address] [address] Kulwant Brennan MCV (RBC) [Entitic vol] 81.5 fL Normal 80.0-94.0 [facility] Comment on above: Performed By: #### L ACT #### [facility] [address] [address] [address] Kulwant Brennan MONO # 1.0 103/ul Critically high 0.3-0.[address] [facility] Comment on above: Performed By: #### L ACT #### [facility] [address] [address] [address] Kulwant Brennan Monocytes/100 WBC (Bld) 10.5 % Normal 1.7-12.0 [facility] Comment on above: Performed By: #### L ACT #### [facility] [address] [address] [address] Kulwant Brennan NEUT # 5.1 103/ul Normal 1.4-6.5 [facility] Comment on above: Performed By: #### L ACT #### [facility] [address] [address] [address] Kulwant Brennan Neutrophils/100 WBC (Bld) 56.2 % Normal 43.0-75.0 [facility] Comment on above: Performed By: #### L ACT #### [facility] [address] [address] [address] Kulwant Brennan Platelet mean volume (Bld) [Entitic vol] 10.0 fL Normal 9.5-13.5 [facility] Comment on above: Performed By: #### L ACT #### [facility] [address] [place] [address] Dr. Kulwant Brennan PLT 251 103/ul Normal 150-450 [facility] Comment on above: Performed By: #### L ACT #### [facility] [address] [address] [address] Kulwant Brennan RBC 5.19 106/ul Normal 4.70-6.10 [facility] Comment on above: Performed By: #### L ACT #### [facility] [address] [address] [address] Kulwant Brennan WBC 9.1 103/ul Normal 4.0-11.0 [facility] Comment on above: Performed By: #### L ACT #### [facility] [address] [address] [address] STROKE HEAD WOon 06-04-19 CT STROKE HEAD WO EXAMINATION: CT STRO [...] CONNER TANG Date: 2022-06-04 07:16 Normal [facility] Covid-19 PCR (CVDTB)on 05-23 SARS-CoV-2 (COVID-19) RNA MIKE+probe Ql (Unsp spec) Not detected Normal NOT DETECTED [facility] Comment on above: Result Comment: When [...] for this test is supported by the Director Of [employer] of Health and Human Service's declaration that [...] longer be used). Performed By: #### H STROPN #### [facility] [address] [place] [address] Dr. Kulwant Brennan D-DIMERon 06-04-2022 D-DIMER 0.38 mg/L FEU Normal <=0.59 [facility] Comment on above: Performed By: #### D DIM #### [facility] [address] [place] [address] Dr. Kulwant Brennan D-DIMER COMMENTS SEE BELOW Normal [facility] Comment on above: Result Comment: Incr [...] hospitalization. Performed By: #### D DIM #### [facility] [address] [place] [address] Dr. Kulwant Brennan PROF 14(COMP METB)on 023 Albumin [Mass/Vol] 4.1 g/dL Normal 3.4-5.0 [facility] Comment on above: Performed By: #### H STROPN #### [facility] [address] [place] [address] Dr. Kulwant Brennan Albumin/Globulin [Mass ratio] 1.1 {ratio} Normal [facility] Comment on above: Performed By: #### H STROPN #### [facility] [address] [place] [address] Dr. Kulwant Brennan ALP [Catalytic activity/Vol] 78 U/L Normal 46-116 [facility] Comment on above: Performed By: #### H STROPN #### [facility] [address] [place] [address] Dr. Kulwant Brennan ALT [Catalytic activity/Vol] 26 U/L Normal 16-63 [facility] Comment on above: Performed By: #### H STROPN #### [facility] [address] [place] [address] Dr. Kulwant Brennan Anion gap [Moles/Vol] 16.3 mmol/L Normal [facility] Comment on above: Performed By: #### H STROPN #### [facility] [address] [address] [address] Kulwant Brennan AST [Catalytic activity/Vol] 18 U/L Normal 15-37 [facility] Comment on above: Performed By: #### H STROPN #### [facility] [address] [address] [address] Kulwant Brennan Bilirubin [Mass/Vol] 0.4 mg/dL Normal 0.2-1.0 [facility] Comment on above: Performed By: #### H STROPN #### [facility] [address] [place] [address] Dr. Kulwant Brennan Calcium [Mass/Vol] 8.4 mg/dL Critically low 8.5-10.1 [facility] Comment on above: Performed By: #### H STROPN #### [facility] [address] [place] [address] Dr. Kulwant Brennan Chloride [Moles/Vol] 104 mmol/L Normal 98-107 [facility] Comment on above: Performed By: #### H STROPN #### [facility] [address] [address] [address] Kulwant Brennan CO2 [Moles/Vol] 24.8 mmol/L Normal 21.0-32.0 [facility] Comment on above: Performed By: #### H STROPN #### [facility] [address] [place] [address] Dr. Kulwant Brennan Creatinine [Mass/Vol] 1.52 mg/dL Critically high 0.70-1.30 [facility] Comment on above: Performed By: #### H STROPN #### [facility] [address] [place] [address] Dr. Kulwant Brennan EGFR-AF MONTSERRATIAN 55 mL/min/1.73m2 Critically low >=60 [facility] Comment on above: Performed By: #### H STROPN #### [facility] [address] [address] [address] Kulwant Brennan EGFR-NON AF MONTSERRATIAN 46 mL/min/1.73m2 Critically low >=60 [facility] Comment on above: Performed By: #### H STROPN #### [facility] [address] [address] [address] Kulwant Brennan Globulin (S) [Mass/Vol] 3.6 g/dL Normal [facility] Comment on above: Performed By: #### H STROPN #### [facility] [address] [address] [address] Kulwant Brennan Glucose [Mass/Vol] 102 mg/dL Normal 74-106 [facility] Comment on above: Performed By: #### H STROPN #### [facility] [address] [address] [address] Kulwant Brennan Potassium [Moles/Vol] 4.1 mmol/L Normal 3.5-5.1 [facility] Comment on above: Performed By: #### H STROPN #### [facility] [address] [place] [address] Dr. Kulwant Brennan Protein [Mass/Vol] 7.7 g/dL Normal 6.4-8.2 [facility] Comment on above: Performed By: #### H STROPN #### [facility] [address] [address] [address] Kulwant Brennan Sodium [Moles/Vol] 141 mmol/L Normal 136-145 [facility] Comment on above: Performed By: #### H STROPN #### [facility] [address] [address] [address] Kulwant Brennan Urea nitrogen [Mass/Vol] 30.0 mg/dL Critically high 7.0-18.0 [facility] Comment on above: Performed By: #### H STROPN #### [facility] [address] [address] [address] Kulwant Brennan Urea nitrogen/Creatinine [Mass ratio] 19.7 mg/mg Normal [facility] Comment on above: Performed By: #### H STROPN #### [facility] [address], [place] [address] Dr. Kulwant Brennan PROTIMEon 06-04-2022 INR Coag (PPP) [Relative time] 0.99 {INR} Normal [facility] Comment on above: Performed By: #### P TT, PT ####[facility] [address] [address]Dr. Kulwant Brennan INR GUIDELINES SEE BELOW Normal [facility] Comment on above: Result Comment: HAYDEE RED INR: 2.0 - 3.0 CONDITIONS NOT LISTED BELOW 2.5 - 3.5 FOR PROSTHETIC HEART VALVE REPLACEMENT 2.5 - 3.5 RECURRENT THROMBOSIS Performed By: #### P TT, PT ####[facility] [address] [id number]. Kulwant Brennan PT Coag (PPP) [Time] 10.5 s Normal 9.0-11.6 [facility] Comment on above: Performed By: #### P TT, PT ####[facility] [address] [id number]. Kulwant Brennan PTTon 06-04-2022 aPTT Coag (Bld) [Time] 30.4 s Normal 22.3-36.2 [facility] Comment on above: Performed By: #### P TT, PT ####[facility] [address] [address]Dr. Kulwant Brennan TROPONIN, HIGH SENSITIVITYon 06-04-2022 HSTROP 4.5 pg/mL Normal 4.0-76.1 [facility] Comment on above: Result Comment: CUT- OFF POINTS HAVE BEEN ESTABLISHED BASED ON THE FOURTH UNIVERSAL DEFINITIONS OF MYOCARDIAL INFARCTION. THE UPPER REFERENCE LIMIT (URL) OF TROPONIN, DEFINED THE 99TH PERCENTILE OF cTnI DISTRIBUTION IN A REFERENCE POPULATION, HAS BEEN CONFIRMED THE DECISION THRESHOLD FOR CO DIAGNOSIS. Performed By: #### H STROPN ####[facility] [address] [address]Dr. Kulwant Brennan HSTROP 4.3 pg/mL Normal 4.0-76.1 [facility] Comment on above: Result Comment: CUT- OFF POINTS HAVE BEEN ESTABLISHED BASED ON THE FOURTH UNIVERSAL DEFINITIONS OF MYOCARDIAL INFARCTION. THE UPPER REFERENCE LIMIT (URL) OF TROPONIN, DEFINED THE 99TH PERCENTILE OF cTnI DISTRIBUTION IN A REFERENCE POPULATION, HAS BEEN CONFIRMED THE DECISION THRESHOLD FOR CO DIAGNOSIS. Performed By: #### H STROPN #### [facility] [address], [place] [address] Dr. Kulwant Brennan TSHon 06-04-2022 TSH 2.572 uIU/mL Normal 0.358-3.74 0 [facility] Comment on above: Performed By: #### L ACT #### [facility] [address], [place] [address] Dr. Kulwant Brennan XR CHEST 1 Von [...] by: FLORENTIN PALMA Date: 2022-06-04 04:40 Normal [facility] XR CHEST 2 Von 06-04-2022 XR CHEST [...] by: NICOLE CASAREZ Date: 2022-06-04 16:28 Normal [facility] XR Hand Complete Left*on XR Hand Complete [...] by Chaz Moreau on 04/17/2022 1415 Normal [facility] Specialist ECHO LIMITED STUDYon 022 ECHO LIMITED STUDY Patient: Sophia ANTUNEZ Exam Date: 03/22/2022 : 1955 Gender:M Ordering : YANDEL SHEN [facility] Admission #: [id number] Family : Order #: [id number] CLICK HERE TO VIEW EXAM ECHOCARDIOGRAM REPORT [...] M.D. on 03/22/2022 at 20:31 Normal [facility] XR Abdomen Single View (KUB) *on 03-21-2022 [...] by Chaz Moreau on 03/21/2022 0944 Normal [facility] Clinical Application Manager AMYLASEon 02-05-2022 Amylase [Catalytic activity/Vol] 58 U/L Normal 25-115 [facility] Comment on above: Performed By: #### L IPA, YAHIR, CMP #### [facility] [address] [address] [address] Kulwant Brennan CBC AUTO DIFFon 02-05-2022 BASO # 0.1 103/ul Normal 0.0-0.1 [facility] Comment on above: Performed By: #### L ACT #### [facility] [address] [address] [address] Kulwant Brennan Basophils/100 WBC (Bld) 0.8 % Normal 0.2-2.0 [facility] Comment on above: Performed By: #### L ACT #### [facility] [address] [address] [address] Kulwant Brennan EO # 0.2 103/ul Normal 0.0-0.7 [facility] Comment on above: Performed By: #### L ACT #### [facility] [address] [place] [address] Dr. Kulwant Brennan Eosinophils/100 WBC (Bld) 2.3 % Normal 0.9-7.0 [facility] Comment on above: Performed By: #### L ACT #### [facility] [address] [place] [address] Dr. Kulwant Brennan Erythrocyte distribution width (RBC) [Ratio] 14.6 % Normal 11.0-15.0 [facility] Comment on above: Performed By: #### L ACT #### [facility] [address] [place] [address] Dr. Kulwant Brennan Hematocrit (Bld) [Volume fraction] 39.9 % Critically low 42.0-54.0 [facility] Comment on above: Performed By: #### L ACT #### [facility] [address] [place] [address] Dr. Kulwant Brennan Hemoglobin (Bld) [Mass/Vol] 12.7 g/dL Critically low 14.0-18.0 [facility] Comment on above: Performed By: #### L ACT #### [facility] [address] [place] [address] Dr. Kulwant Brennan IG # 0.03 10e3/ul Normal 0.00-0.03 [facility] Comment on above: Performed By: #### L ACT #### [facility] [address] [place] [address] Dr. Kulwant Brennan IG % 0.5 % Normal 0.0-0.5 [facility] Comment on above: Performed By: #### L ACT #### [facility] [address] [place] [address] Dr. Kulwant Brennan LYMPH # 1.9 103/ul Normal 1.2-3.8 [facility] Comment on above: Performed By: #### L ACT #### [facility] [address] [place] [address] Dr. Kulwant Brennan Lymphocytes/100 WBC (Bld) 28.3 % Normal 20.5-60.0 [facility] Comment on above: Performed By: #### L ACT #### [facility] [address] [place] [address] Dr. Kulwant Brennan MANUAL DIFF REQ NO Normal [facility] Comment on above: Performed By: #### L ACT #### [facility] [address] [place] [address] Dr. Kulwant Brennan MCH (RBC) [Entitic mass] 27.4 pg Normal 25.9-34.0 [facility] Comment on above: Performed By: #### L ACT #### [facility] [address] [place] [address] Dr. Kulwant Brennan MCHC (RBC) [Mass/Vol] 31.8 g/dL Normal 29.9-35.2 [facility] Comment on above: Performed By: #### L ACT #### [facility] [address] [place] [address] Dr. Kulwant Brennan MCV (RBC) [Entitic vol] 86.0 fL Normal 80.0-94.0 [facility] Comment on above: Performed By: #### L ACT #### [facility] [address] [place] [address] Dr. Kulwant Brennan MONO # 0.7 103/ul Normal 0.3-0.8 [facility] Comment on above: Performed By: #### L ACT #### [facility] [address] [place] [address] Dr. Kulwant Brennan Monocytes/100 WBC (Bld) 10.4 % Normal 1.7-12.0 [facility] Comment on above: Performed By: #### L ACT #### [facility] [address] [place] [address] Dr. Kulwant Brennan NEUT # 3.8 103/ul Normal 1.4-6.5 [facility] Comment on above: Performed By: #### L ACT #### [facility] [address] [place] [address] Dr. Kulwant Brennan Neutrophils/100 WBC (Bld) 57.7 % Normal 43.0-75.0 [facility] Comment on above: Performed By: #### L ACT #### [facility] [address] [address] [address] Kulwant Brennan Platelet mean volume (Bld) [Entitic vol] 9.9 fL Normal 9.5-13.5 [facility] Comment on above: Performed By: #### L ACT #### [facility] [address] [address] [address] Kulwant Brennan PLT 224 103/ul Normal 150-450 [facility] Comment on above: Performed By: #### L ACT #### [facility] [address] [address] [address] Kulwant Brennan RBC 4.64 106/ul Critically low 4.70-6.10 [facility] Comment on above: Performed By: #### L ACT #### [facility] [address] [place] [address] Dr. Kulwant Brennan WBC 6.6 103/ul Normal 4.0-11.0 [facility] Comment on above: Performed By: #### L ACT #### [facility] [address] [place] [address] Dr. Kulwant Brennan LIPASEon 02-05-2022 Lipase [Catalytic activity/Vol] 174.0 U/L Normal 73.0-393.0 [facility] Comment on above: Performed By: #### L YAHIR NG, CMP #### [facility] [address] [place] [address] Dr. Kulwant Brennan PROF 14(COMP METB)on 022 Albumin [Mass/Vol] 4.2 g/dL Normal 3.4-5.0 [facility] Comment on above: Performed By: #### L IPA YAHIR, CMP #### [facility] [address] [place] [address] Dr. Kulwant Brennan Albumin/Globulin [Mass ratio] 1.0 {ratio} Normal [facility] Comment on above: Performed By: #### L IPA YAHIR, CMP #### [facility] [address] [place] [address] Dr. Kulwant Brennan ALP [Catalytic activity/Vol] 106 U/L Normal 46-116 [facility] Comment on above: Performed By: #### L IPA YAHIR, CMP #### [facility] [address] [place] [address] Dr. Kulwant Brennan ALT [Catalytic activity/Vol] 91 U/L Critically high 16-63 [facility] Comment on above: Performed By: #### L IPA YAHIR, CMP #### [facility] [address] [place] [address] Dr. Kulwant Brennan Anion gap [Moles/Vol] 13.8 mmol/L Normal [facility] Comment on above: Performed By: #### L IPA YAHIR, CMP #### [facility] [address] [place] [address] Dr. Kulwant Brennan AST [Catalytic activity/Vol] 26 U/L Normal 15-37 [facility] Comment on above: Performed By: #### L IPA YAHIR, CMP #### [facility] [address] [place] [address] Dr. Kulwant Brennan Bilirubin [Mass/Vol] 0.5 mg/dL Normal 0.2-1.0 [facility] Comment on above: Performed By: #### L IPA YAHIR, CMP #### [facility] [address] [place] [address] Dr. Kulwant Brennan Calcium [Mass/Vol] 8.3 mg/dL Critically low 8.5-10.1 [facility] Comment on above: Performed By: #### L IPA YAHIR, CMP #### [facility] [address] [place] [address] Dr. Kulwant Brennan Chloride [Moles/Vol] 103 mmol/L Normal 98-107 [facility] Comment on above: Performed By: #### L IPA YAHIR, CMP #### [facility] [address] [place] [address] Dr. Kulwant Brennan CO2 [Moles/Vol] 26.5 mmol/L Normal 21.0-32.0 [facility] Comment on above: Performed By: #### L IPA YAHIR, CMP #### [facility] [address] [place] [address] Dr. Kulwant Brennan Creatinine [Mass/Vol] 1.37 mg/dL Critically high 0.70-1.30 [facility] Comment on above: Performed By: #### L YAHIR NG, CMP #### [facility] [address] [address] [address] Kulwant Brennan EGFR-AF MONTSERRATIAN >60 Normal >=60 [facility] Comment on above: Performed By: #### L YAHIR NG, CMP #### [facility] [address] [address] [address] Kulwant Brennan EGFR-NON AF MONTSERRATIAN 52 mL/min/1.73m2 Critically low >=60 [facility] Comment on above: Performed By: #### L YAHIR NG, CMP #### [facility] [address] [place] [address] Dr. Kulwant Brennan Globulin (S) [Mass/Vol] 4.1 g/dL Normal [facility] Comment on above: Performed By: #### L YAHIR NG, CMP #### [facility] [address] [place] [address] Dr. Kulwant Brennan Glucose [Mass/Vol] 96 mg/dL Normal 74-106 [facility] Comment on above: Performed By: #### L YAHIR NG, CMP #### [facility] [address] [place] [address] Dr. Kulwant Brennan Potassium [Moles/Vol] 4.3 mmol/L Normal 3.5-5.1 [facility] Comment on above: Performed By: #### L YAHIR NG, CMP #### [facility] [address] [place] [address] Dr. Kulwant Brennan Protein [Mass/Vol] 8.3 g/dL Critically high 6.4-8.2 [facility] Comment on above: Performed By: #### L YAHIR NG, CMP #### [facility] [address] [place] [address] Dr. Kulwant Brennan Sodium [Moles/Vol] 139 mmol/L Normal 136-145 [facility] Comment on above: Performed By: #### L YAHIR NG, CMP #### [facility] [address] [address] [address] Kulwant Brennan Urea nitrogen [Mass/Vol] 27.0 mg/dL Critically high 7.0-18.0 [facility] Comment on above: Performed By: #### L YAHIR NG, CMP #### [facility] [address] [address] [address] Kulwant Brennan Urea nitrogen/Creatinine [Mass ratio] 19.7 mg/mg Normal [facility] Comment on above: Performed By: #### L YAHIR NG, CMP #### [facility] [address] [place] [address] Dr. Kulwant Brennan CBC AUTO DIFFon 01-09-2022 BASO # 0.1 103/ul Normal 0.0-0.1 [facility] Comment on above: Performed By: #### H STROPN #### [facility] [address] [place] [address] Dr. Kulwant Brennan Basophils/100 WBC (Bld) 0.5 % Normal 0.2-2.0 [facility] Comment on above: Performed By: #### H STROPN #### [facility] [address] [place] [address] Dr. Kulwant Brennan EO # 0.2 103/ul Normal 0.0-0.7 [facility] Comment on above: Performed By: #### H STROPN #### [facility] [address] [place] [address] Dr. Kulwant Brennan Eosinophils/100 WBC (Bld) 2.3 % Normal 0.9-7.0 [facility] Comment on above: Performed By: #### H STROPN #### [facility] [address] [place] [address] Dr. Kulwant Brennan Erythrocyte distribution width (RBC) [Ratio] 14.6 % Normal 11.0-15.0 [facility] Comment on above: Performed By: #### H STROPN #### [facility] [address] [place] [address] Dr. Kulwant Brennan Hematocrit (Bld) [Volume fraction] 35.8 % Critically low 42.0-54.0 [facility] Comment on above: Performed By: #### H STROPN #### [facility] [address] [address] [address] Kulwant Brennan Hemoglobin (Bld) [Mass/Vol] 11.4 g/dL Critically low 14.0-18.0 [facility] Comment on above: Performed By: #### H STROPN #### [facility] [address] [address] [address] Kulwant Brennan IG # 0.33 10e3/ul Critically high 0.00-0.03 [facility] Comment on above: Performed By: #### H STROPN #### [facility] [address] [address] [address] Kulwant Brennan IG % 3.2 % Critically high 0.0-0.5 [facility] Comment on above: Performed By: #### H STROPN #### [facility] [address] [address] [address] Kulwant Brennan LYMPH # 1.9 103/ul Normal 1.2-3.8 [facility] Comment on above: Performed By: #### H STROPN #### [facility] [address] [address] [address] Kulwant Brennan Lymphocytes/100 WBC (Bld) 18.3 % Critically low 20.5-60.0 [facility] Comment on above: Performed By: #### H STROPN #### [facility] [address] [address] [address] Kulwant Brennan MANUAL DIFF REQ NO Normal [facility] Comment on above: Performed By: #### H STROPN #### [facility] [address] [address] [address] Kulwant Brennan MCH (RBC) [Entitic mass] 26.8 pg Normal 25.9-34.0 [facility] Comment on above: Performed By: #### H STROPN #### [facility] [address] [place] [address] Dr. Kulwant Brennan MCHC (RBC) [Mass/Vol] 31.8 g/dL Normal 29.9-35.2 [facility] Comment on above: Performed By: #### H STROPN #### [facility] [address] [address] [address] Kulwant Brennan MCV (RBC) [Entitic vol] 84.0 fL Normal 80.0-94.0 [facility] Comment on above: Performed By: #### H STROPN #### [facility] [address] [place] [address] Dr. Kulwant Brennan MONO # 0.9 103/ul Critically high 0.3-0.[address] [facility] Comment on above: Performed By: #### H STROPN #### [facility] [address] [place] [address] Dr. Kulwant Brennan Monocytes/100 WBC (Bld) 9.2 % Normal 1.7-12.0 [facility] Comment on above: Performed By: #### H STROPN #### [facility] [address] [place] [address] Dr. Kulwant Brennan NEUT # 6.8 103/ul Critically high 1.4-6.5 [facility] Comment on above: Performed By: #### H STROPN #### [facility] [address] [place] [address] Dr. Kulwant Brennan Neutrophils/100 WBC (Bld) 66.5 % Normal 43.0-75.0 [facility] Comment on above: Performed By: #### H STROPN #### [facility] [address] [place] [address] Dr. Kulwant Brennan Platelet mean volume (Bld) [Entitic vol] 10.5 fL Normal 9.5-13.5 [facility] Comment on above: Performed By: #### H STROPN #### [facility] [address] [place] [address] Dr. Kulwant Brennan PLT 357 103/ul Normal 150-450 [facility] Comment on above: Performed By: #### H STROPN #### [facility] [address] [place] [address] Dr. Kulwant Brennan RBC 4.26 106/ul Critically low 4.70-6.[address] [facility] Comment on above: Performed By: #### H STROPN #### [facility] [address] [address] [address] Kulwant Brennan WBC 10.2 103/ul Normal 4.0-11.0 [facility] Comment on above: Performed By: #### H DEBRAPN #### [facility] [address] [address] [address] Kulwant Brennan PROF 14(COMP METB)on 022 Albumin [Mass/Vol] 3.3 g/dL Critically low 3.4-5.0 [facility] Comment on above: Performed By: #### T RAJEEV, CMP ####[facility] [address] [address]Dr. Kulwant Brennan Albumin/Globulin [Mass ratio] 0.8 {ratio} Normal [facility] Comment on above: Performed By: #### T RAJEEV, CMP ####[facility] [address] [address]DrAmarjit Brennan ALP [Catalytic activity/Vol] 151 U/L Critically high 46-116 [facility] Comment on above: Performed By: #### T RAJEEV, CMP ####[facility] [address] [address]DrAmarjit Brennan ALT [Catalytic activity/Vol] 118 U/L Critically high 16-63 [facility] Comment on above: Performed By: #### T RAJEEV, CMP ####[facility] [address] [address]DrAmarjit Brennan Anion gap [Moles/Vol] 12.3 mmol/L Normal [facility] Comment on above: Performed By: #### T RAJEEV, CMP ####[facility] [address] [address]DrAmarjit Brennan AST [Catalytic activity/Vol] 65 U/L Critically high 15-37 [facility] Comment on above: Performed By: #### T RAJEEV, CMP ####[facility] [address] [address]DrAmarjit Brennan Bilirubin [Mass/Vol] 0.5 mg/dL Normal 0.2-1.0 [facility] Comment on above: Performed By: #### T SH, CMP ####[facility] [address] [place], [place] [address]Dr. Kulwant Brennan Calcium [Mass/Vol] 5.3 mg/dL Critically low 8.5-10.1 [facility] Comment on above: Performed By: #### T SH, CMP ####[facility] [address] [place], [place] [address]Dr. Kulwant Brennan Chloride [Moles/Vol] 104 mmol/L Normal 98-107 [facility] Comment on above: Performed By: #### T SH, CMP ####[facility] [address] [place], [place] [address]Dr. Kulwant Brennan CO2 [Moles/Vol] 26.7 mmol/L Normal 21.0-32.[address] [facility] Comment on above: Performed By: #### T SH, CMP ####[facility] [address] [place], [place] [address]Dr. Kulwant Brennan Creatinine [Mass/Vol] 2.08 mg/dL Critically high 0.70-1.30 [facility] Comment on above: Performed By: #### T SH, CMP ####[facility] [address] [place], [place] [address]Dr. Kulwant Brennan EGFR-AF MONTSERRATIAN 39 mL/min/1.73m2 Critically low >=60 [facility] Comment on above: Performed By: #### T SH, CMP ####[facility] [address] [place], [place] [address]Dr. Kulwant Brennan EGFR-NON AF MONTSERRATIAN 32 mL/min/1.73m2 Critically low >=60 [facility] Comment on above: Performed By: #### T SH, CMP ####[facility] [address] [place], [place] [address]Dr. Kulwant Brennan Globulin (S) [Mass/Vol] 4.1 g/dL Normal [facility] Comment on above: Performed By: #### T SH, CMP ####[facility] [address] [place], [place] [id number]. Kulwant Brennan Glucose [Mass/Vol] 89 mg/dL Normal 74-106 [facility] Comment on above: Performed By: #### T RAJEEV, CMP ####[facility] [address] [address]Dr. Kulwant Brennan Potassium [Moles/Vol] 4.0 mmol/L Normal 3.5-5.1 [facility] Comment on above: Performed By: #### T RAJEEV, CMP ####[facility] [address] [address]Dr. Kulwant Brennan Protein [Mass/Vol] 7.4 g/dL Normal 6.4-8.2 [facility] Comment on above: Performed By: #### T RAJEEV, CMP ####[facility] [address] [place], [place] [address]Dr. Kulwant Brennan Sodium [Moles/Vol] 139 mmol/L Normal 136-145 [facility] Comment on above: Performed By: #### T RAJEEV, CMP ####[facility] [address] [place], [place] [address]Dr. Kulwant Brennan Urea nitrogen [Mass/Vol] 28.0 mg/dL Critically high 7.0-18.0 [facility] Comment on above: Performed By: #### T RAJEEV, CMP ####[facility] [address] [place], [place] [address]Dr. Kulwant Brennan Urea nitrogen/Creatinine [Mass ratio] 13.5 mg/mg Normal [facility] Comment on above: Performed By: #### T RAJEEV, CMP ####[facility] [address] [address]Dr. Kulwant Brennan TSHon 01-09-2022 TSH 20.234 uIU/mL Critically high 0.358-3.74 0 [facility] Comment on above: Performed By: #### T RAJEEV, CMP ####[facility] [address] [place], [place] [address]Dr. Kulwant Brennan Cult, Bloodon 01-06-2022 Cult, Blood Specimen Description .BLOOD Special Requests RT AC 6ML Culture NO GROWTH 5 DAYS Report Status FINAL 01/06/2022 Normal [facility] Comment on above: Performed By: #### U RNA, URTPRT, UMICAO, UEOS, UA #### [facility] [address] [place] [address] [employer]: Ronn Arias MD Cult,Bloodon 01-06-2022 Cult,Blood Specimen Description .BLOOD Special Requests LT HAND 6ML Culture NO GROWTH 5 DAYS Report Status FINAL 01/06/2022 Normal [facility] Comment on above: Performed By: #### U RNA, URTPRT, UMICAO, UEOS, UA #### [facility] [address] [place] [address] [employer]: Ronn Arias MD KYLE SCREEN WITH REFLEXon Anti ds DNA 5.8 NINF [facility] Comment on above: Reference Range: <10.0 Negative 10.0-15.0 Equivocal >15.0 Positive ARJUN Antibodies Screen 0.3 U/mL [facility] - 0.7 U/mL [facility] Comment on above: Reference Range: <0.7 Negative 0.7-1.0 Equivocal >1.0 Positive ARJUN Screen includes U1RNP,RNP70,Sm,Ro(SS-A),La(SS-B),CENP,Scl-70,Pippa-1 Nuclear Ab IF (S) [Titer] Negative NEGATIVE [facility] KYLE Screen w/reflexon 2021 KYLE Screen Negative Normal NEG [facility] Comment on above: Performed By: #### U RNA, URTPRT, UMICAO, UEOS, UA #### [facility] [place] [address] [employer]: Ronn Arias MD Anti-dsDNA 5.8 IU/mL Normal <10.0 [facility] Comment on above: Result Comment: Reference Range: <10.0 Negative 10.0-15.0 Equivocal >15.0 Positive Performed By: #### U RNA, URTPRT, UMICAO, UEOS, UA #### [facility] [address] [place], [place] [id number] [employer]: Ronn Arias MD ARJUN Screen 0.3 U/mL Normal <0.7 [facility] Comment on above: Result Comment: Reference Range: <0.7 Negative 0.7-1.0 Equivocal >1.0 Positive ARJUN Screen includes U1RNP,RNP70,Sm,Ro(SS-A),La(SS-B),CENP,Scl-70,Pippa-1 Performed By: #### U RNA, URTPRT, UMICAO, UEOS, UA #### [facility] [address] [place] [address] [employer]: Ronn Arias MD Basic Metabolic Panelon - Anion gap [Moles/Vol] 14 mmol/L 9 - 17 mmol/L [facility] [employer] Calcium [Mass/Vol] 6.4 mg/dL Low 8.6 - 10. 4 mg/dL [facility] [employer] Chloride [Moles/Vol] 108 mmol/L High 98 - 107 mmol/L [facility] [employer] CO2 [Moles/Vol] 25 mmol/L 20 - 31 mmol/L [facility] [employer] Creatinine [Mass/Vol] 2.5 mg/dL High 0.7 - 1.2 mg/dL [employer] GFR 31 mL/min Low 60 - PINF mL/min [employer] GFR Non- 26 mL/min Low 60 - PINF mL/min [employer] GFR/1.73 sq M.predicted MDRD (S/P/Bld) [Vol rate/Area] [facility] Comment on above: Average GFR for 60-6 9 years old: 85 mL/min/1.73sq m Chronic Kidney Disease: <60 mL/min/1.73sq m Kidney failure: <15 mL/min/1.73sq m eGFR calculated using average adult body mass. Additional eGFR calculator available at: http://www.[employer]/multiple_crcl_2011.htm Glucose [Mass/Vol] 99 mg/dL 70 - 99 mg/dL [facility] Interpretation and review of laboratory results Abnormal [facility] Potassium [Moles/Vol] 4.6 mmol/L 3.7 - 5.3 mmol/L [facility] Sodium [Moles/Vol] 147 mmol/L High 135 - 144 mmol/L [facility] Urea nitrogen (BldV) [Mass/Vol] 40 mg/dL High 8 - 23 mg/dL [facility] Basic Metabolic Profon 01-05 (cont.) Normal [facility] Comment on above: Result Comment: Aver age GFR for 60-69 years old: 85 mL/min/1.73sq m Chronic Kidney Disease: <60 mL/min/1.73sq m Kidney failure: <15 mL/min/1.73sq m eGFR calculated using average adult body mass. Additional eGFR calculator available at: http://www.[employer]/multiple_crcl_2011.htm Performed By: #### U RNA, URTPRT, UMICAO, UEOS, UA #### [facility] [place], [place] [id number] [employer]: oRnn Arias MD Anion gap [Moles/Vol] 14 mmol/L Normal 9-17 [facility] Comment on above: Performed By: #### U RNA, URTPRT, UMICAO, UEOS, UA #### [facility] [address] [place], [place] [id number] [employer]: Ronn Arias MD Calcium [Mass/Vol] 6.4 mg/dL Low 8.6-10.4 [facility] Comment on above: Performed By: #### U RNA, URTPRT, UMICAO, UEOS, UA #### [facility] [address] [place], [place] [id number] [employer]: Ronn Arias MD Chloride [Moles/Vol] 108 mmol/L High 98-107 [facility] Comment on above: Performed By: #### U RNA, URTPRT, UMICAO, UEOS, UA #### [address] [address] [employer]: Ronn Arias MD CO2 [Moles/Vol] 25 mmol/L Normal 20-31 [facility] Comment on above: Performed By: #### U RNA, URTPRT, UMICAO, UEOS, UA #### [address] [address] [employer]: Ronn Arias MD Creatinine [Mass/Vol] 2.50 mg/dL High 0.70-1.20 [facility] Comment on above: Performed By: #### U RNA, URTPRT, UMICAO, UEOS, UA #### [address] [address] [employer]: Ronn Arias MD GFR, Amer 31 mL/min Low >60 [facility] Comment on above: Performed By: #### U RNA, URTPRT, UMICAO, UEOS, UA #### [address] [address] [employer]: Ronn Arias MD GFR,non Amer 26 mL/min Low >60 [facility] Comment on above: Performed By: #### U RNA, URTPRT, UMICAO, UEOS, UA #### [facility] [address] [place] [address] [employer]: Ronn Arias MD Glucose [Mass/Vol] 99 mg/dL Normal 70-99 [facility] Comment on above: Performed By: #### U RNA, URTPRT, UMICAO, UEOS, UA #### [facility] [address] [place] [address] [employer]: Ronn Arias MD Potassium [Moles/Vol] 4.6 mmol/L Normal 3.7-5.3 [facility] Comment on above: Performed By: #### U RNA, URTPRT, UMICAO, UEOS, UA #### [facility] [address] [place] [address] [employer]: Ronn Arias MD Sodium [Moles/Vol] 147 mmol/L High 135-144 [facility] Comment on above: Performed By: #### U RNA, URTPRT, UMICAO, UEOS, UA #### [facility] [address] [place] [address] [employer]: Ronn Arias MD Urea nitrogen [Mass/Vol] 40 mg/dL High 8-23 [facility] Comment on above: Performed By: #### U RNA, URTPRT, UMICAO, UEOS, UA #### [address] [address] [employer]: Ronn Arias MD IMMUNOFIXATION SERUM PROFILE on 01-05-2022 Pathologist Cyto stain Nom (Cvx/Vag) [ID] Reviewed by pathologist: Kailee Portillo M.D. [facility] Serum IFX Interp IMMUNOFIXATION IS NE GATIVE FOR MONOCLONAL IMMUNOGLOBULIN. [facility] Immunofixation,Bloodon 01-05 IFX - Interpret. IMMUNOFIXATION IS NE GATIVE FOR MONOCLONAL IMMUNOGLOBULIN. Normal [facility] Comment on above: Performed By: #### U RNA, URTPRT, UMICAO, UEOS, UA #### [facility] [address] [place] [address] [employer]: Ronn Arias MD Pathologist Review: Reviewed by patholog ist: Kailee Portillo M.D. [facility] Comment on above: Performed By: #### U RNA, URTPRT, UMICAO, UEOS, UA #### [facility] [address] [place] [id number] [employer]: Ronn Arias MD Basic Metab w/rfx MGon 01-04 (cont.) Normal [facility] Comment on above: Result Comment: Aver age GFR for 60-69 years old: 85 mL/min/1.73sq m Chronic Kidney Disease: <60 mL/min/1.73sq m Kidney failure: <15 mL/min/1.73sq m eGFR calculated using average adult body mass. Additional eGFR calculator available at: http://www.[employer]/multiple_crcl_2012.htm Performed By: #### U RNA, URTPRT, UMICAO, UEOS, UA #### [facility] [address] [place] [address] [employer]: Ronn Arias MD Anion gap [Moles/Vol] 13 mmol/L Normal 9-17 [facility] Comment on above: Performed By: #### U RNA, URTPRT, UMICAO, UEOS, UA #### [facility] [address] [place] [address] Refrigerator Crater: Ronn Arias MD Calcium [Mass/Vol] 6.6 mg/dL Low 8.6-10.4 [facility] Comment on above: Performed By: #### U RNA, URTPRT, UMICAO, UEOS, UA #### [employer] [address] [place] [address] Refrigerator Crater: Ronn Arias MD Chloride [Moles/Vol] 107 mmol/L Normal 98-107 [facility] Comment on above: Performed By: #### U RNA, URTPRT, UMICAO, UEOS, UA #### [employer] [address] [place] [address] Refrigerator Crater: Ronn Arias MD CO2 [Moles/Vol] 21 mmol/L Normal 20-31 [facility] Comment on above: Performed By: #### U RNA, URTPRT, UMICAO, UEOS, UA #### [facility] [address] [place] [address] Refrigerator Crater: Ronn Arias MD Creatinine [Mass/Vol] 3.07 mg/dL High 0.70-1.20 [facility] Comment on above: Performed By: #### U RNA, URTPRT, UMICAO, UEOS, UA #### [facility] [address] [place] [address] Refrigerator Crater: Ronn Arias MD GFR, Amer 25 mL/min Low >60 [facility] Comment on above: Performed By: #### U RNA, URTPRT, UMICAO, UEOS, UA #### [facility] [address] [place] [address] Refrigerator Crater: Ronn Arias MD GFR,non Amer 20 mL/min Low >60 [facility] Comment on above: Performed By: #### U RNA, URTPRT, UMICAO, UEOS, UA #### [address] [address] Refrigerator Crater: Ronn Arias MD Glucose [Mass/Vol] 95 mg/dL Normal 70-99 [facility] Comment on above: Performed By: #### U RNA, URTPRT, UMICAO, UEOS, UA #### [facility] [address] [place] [address] Refrigerator Crater: Ronn Arias MD Potassium [Moles/Vol] 4.3 mmol/L Normal 3.7-5.3 [facility] Comment on above: Performed By: #### U RNA, URTPRT, UMICAO, UEOS, UA #### [facility] [address] [place] [address] Refrigerator Crater: Ronn Arias MD Sodium [Moles/Vol] 141 mmol/L Normal 135-144 [facility] Comment on above: Performed By: #### U RNA, URTPRT, UMICAO, UEOS, UA #### [facility] [address] [place], [place] [id number] Refrigerator Crater: Ronn Arias MD Urea nitrogen [Mass/Vol] 54 mg/dL High 8-23 [facility] Comment on above: Performed By: #### U RNA, URTPRT, UMICAO, UEOS, UA #### [facility] [address] [place], [place] [id number] Refrigerator Crater: Ronn Arias MD Basic Metabolic Panel w/ Ref luz to [facility] 01-04-2022 Anion gap [Moles/Vol] 13 mmol/L 9 - 17 mmol/L [facility] Calcium [Mass/Vol] 6.6 mg/dL Low 8.6 - 10. 4 mg/dL [facility] Chloride [Moles/Vol] 107 mmol/L 98 - 107 mmol/L [facility] CO2 [Moles/Vol] 21 mmol/L 20 - 31 mmol/L [facility] Creatinine [Mass/Vol] 3.07 mg/dL High 0.7 - 1.2 mg/dL [facility] GFR 25 mL/min Low 60 - PINF mL/min [facility] GFR Non- 20 mL/min Low 60 - PINF mL/min [facility] GFR/1.73 sq M.predicted MDRD (S/P/Bld) [Vol rate/Area] [facility] [employer] Comment on above: Average GFR for 60-6 9 years old: 85 mL/min/1.73sq m Chronic Kidney Disease: <60 mL/min/1.73sq m Kidney failure: <15 mL/min/1.73sq m eGFR calculated using average adult body mass. Additional eGFR calculator available at: http://www.Public[employer]/multiple_crcl_2012.htm Glucose [Mass/Vol] 95 mg/dL 70 - 99 mg/dL [facility] Interpretation and review of laboratory results Abnormal [facility] [facility] Potassium [Moles/Vol] 4.3 mmol/L 3.7 - 5.3 mmol/L [facility] Sodium [Moles/Vol] 141 mmol/L 135 - 144 mmol/L [facility] Urea nitrogen (BldV) [Mass/Vol] 54 mg/dL High 8 - 23 mg/dL [facility] CBC with Auto Differentialon 01-04-2022 Absolute Eos # 0.19 [facility] Absolute Immature Granulocyte 0.09 [facility] Absolute Lymph # 1.34 [facility] Absolute [place] # 1.01 [facility] Basophils Absolute [facility] Basophils/100 WBC (Bld) 0 % 0 - 2 % [facility] Eosinophils/100 WBC (Bld) 2 % 1 - 4 % [facility] Hematocrit (Bld) [Volume fraction] 28.4 % Low 40.7 - 50.3 % [facility] Hemoglobin (Bld) [Mass/Vol] 9.3 g/dL Low 13 - 17 g/dL [facility] Immature granulocytes/100 WBC (Bld) 1 % High 0 [facility] Interpretation and review of laboratory results Abnormal [facility] Lymphocytes/100 WBC (Bld) 11 % Low 24 - 43 % [facility] MCH (RBC) [Entitic mass] 27.4 pg 25.2 - 33.5 pg [facility] MCHC (RBC) [Mass/Vol] 32.7 g/dL 28.4 - 34.8 g/dL [facility] MCV (RBC) [Entitic vol] 83.8 fL 82.6 - 102.9 fL [facility] Monocytes/100 WBC (Bld) 8 % 3 - 12 % [facility] NRBC Automated 0.0 0.0 per 100 WBC [facility] Platelet distribution width (Bld) [Ratio] 14.3 % 11.8 - 14.4 % [facility] Platelet mean volume (Bld) [Entitic vol] 10.6 fL 8.1 - 13.5 fL [facility] Platelets (Bld) [#/Vol] 177 10*3/uL [facility] RBC (Bld) [#/Vol] 3.39 10*6/uL Low 4.21 - 5.77 m/uL [facility] Segmented neutrophils/100 WBC (Bld) 78 % High 36 - 65 % [facility] Segs Absolute 9.54 High [facility] WBC (Bld) [#/Vol] 12.2 10*3/uL High [facility]NOTE 2[place] CBC with Diffon 01-04-2022 Abs. Basophil <0.03 Normal 0.00-0.20 [facility] Comment on above: Performed By: #### U RNA, URTPRT, UMICAO, UEOS, UA #### [facility] [address] [place] [address] Refrigerator Crater: Ronn Arias MD Abs.Imm.Granulocyte 0.09 k/uL Normal 0.00-0.30 [facility] Comment on above: Performed By: #### U RNA, URTPRT, UMICAO, UEOS, UA #### [employer] [address] [place] [address] Refrigerator Crater: Ronn Arias MD Abs.Neutrophil (Seg) 9.54 k/uL High 1.50-8.10 [facility] Comment on above: Performed By: #### U RNA, URTPRT, UMICAO, UEOS, UA #### [facility] [address] [place] [address] Refrigerator Crater: Ronn Arias MD Basophils/100 WBC (Bld) 0 % Normal 0-2 [facility] Comment on above: Performed By: #### U RNA, URTPRT, UMICAO, UEOS, UA #### [facility] [address] [place] [address] Refrigerator Crater: Ronn Arias MD Eosinophils (Bld) [#/Vol] 0.19 10*3/uL Normal 0.00-0.44 [facility] Comment on above: Performed By: #### U RNA, URTPRT, UMICAO, UEOS, UA #### [facility] [address] [place] [address] Refrigerator Crater: Ronn Arias MD Eosinophils/100 WBC (Bld) 2 % Normal 1-4 [facility] Comment on above: Performed By: #### U RNA, URTPRT, UMICAO, UEOS, UA #### [facility] [address] [place] [address] Refrigerator Crater: Ronn Arias MD Immature granulocytes/100 WBC (Bld) 1 % High 0 [facility] Comment on above: Performed By: #### U RNA, URTPRT, UMICAO, UEOS, UA #### [address] [address] Refrigerator Crater: Ronn Arias MD Lymphocytes (Bld) [#/Vol] 1.34 10*3/uL Normal 1.10-3.70 [facility] Comment on above: Performed By: #### U RNA, URTPRT, UMICAO, UEOS, UA #### [facility] [address] [place] [address] Refrigerator Crater: Ronn Arias MD Lymphocytes/100 WBC (Bld) 11 % Low 24-43 [facility] Comment on above: Performed By: #### U RNA, URTPRT, UMICAO, UEOS, UA #### [facility] [address] [place] [address] 418[address] Refrigerator Crater: Ronn Arias MD Monocytes (Bld) [#/Vol] 1.01 10*3/uL Normal 0.10-1.20 [facility] Comment on above: Performed By: #### U RNA, URTPRT, UMICAO, UEOS, UA #### [facility] [address] [place] [address] 21495 Refrigerator Crater: Ronn Arias MD Monocytes/100 WBC (Bld) 8 % Normal 3-12 [facility] Comment on above: Performed By: #### U RNA, URTPRT, UMICAO, UEOS, UA #### [facility] [address] [place] [address]15 Refrigerator Crater: Ronn Arias MD Neutrophil (Seg) 78 % High 36-65 [facility] Comment on above: Performed By: #### U RNA, URTPRT, UMICAO, UEOS, UA #### [facility] [address] [place] [address]348 Refrigerator Crater: Ronn Arias MD Erythrocyte distribution width (RBC) [Ratio] 14.3 % Normal 11.8-14.4 [facility] Comment on above: Performed By: #### U RNA, URTPRT, UMICAO, UEOS, UA #### [facility] [address] [place] [address] Refrigerator Crater: Ronn Arias MD Hematocrit (Bld) [Volume fraction] 28.4 % Low 40.7-50.3 [facility] Comment on above: Performed By: #### U RNA, URTPRT, UMICAO, UEOS, UA #### [facility] [address] [place] [address] Refrigerator Crater: Ronn Arias MD Hemoglobin (Bld) [Mass/Vol] 9.3 g/dL Low 13.0-17.0 [facility] Comment on above: Performed By: #### U RNA, URTPRT, UMICAO, UEOS, UA #### [facility] [place] [address] Refrigerator Crater: Ronn Arias MD MCH (RBC) [Entitic mass] 27.4 pg Normal 25.2-33.5 [facility] Comment on above: Performed By: #### U RNA, URTPRT, UMICAO, UEOS, UA #### [address] [address] Refrigerator Crater: Ronn Arias MD MCHC (RBC) [Mass/Vol] 32.7 g/dL Normal 28.4-34.8 [facility] Comment on above: Performed By: #### U RNA, URTPRT, UMICAO, UEOS, UA #### [address] [address] Refrigerator Crater: Ronn Arias MD MCV (RBC) [Entitic vol] 83.8 fL Normal 82.6-102.9 [facility] Comment on above: Performed By: #### U RNA, URTPRT, UMICAO, UEOS, UA #### [address] [address] Refrigerator Crater: Ronn Arias MD NRBC Automated 0.0 per 100 WBC Normal 0.0 [facility] Comment on above: Performed By: #### U RNA, URTPRT, UMICAO, UEOS, UA #### [address] [address] Refrigerator Crater: Ronn Arias MD Platelet mean volume (Bld) [Entitic vol] 10.6 fL Normal 8.1-13.5 [facility] Comment on above: Performed By: #### U RNA, URTPRT, UMICAO, UEOS, UA #### [address] [address] Refrigerator Crater: Ronn Arias MD Platelets (Bld) [#/Vol] 177 10*3/uL Normal 138-453 [facility] Comment on above: Performed By: #### U RNA, URTPRT, UMICAO, UEOS, UA #### [address] [phone] Refrigerator Crater: Ronn Arias MD RBC (Bld) [#/Vol] 3.39 10*6/uL Low 4.21-5.77 [facility] Comment on above: Performed By: #### U RNA, URTPRT, UMICAO, UEOS, UA #### [place] [id number] [place], [place] [phone] Refrigerator Crater: Ronn Arias MD WBC (Bld) [#/Vol] 12.2 10*3/uL High 3.5-11.3 [facility] Comment on above: Performed By: #### U RNA, URTPRT, UMICAO, UEOS, UA #### [address] [id number] Refrigerator Crater: Ronn Arias MD Basic Metab w/rfx MGon 01-03 (cont.) Normal [facility] Comment on above: Result Comment: Aver age GFR for 60-69 years old: 85 mL/min/1.73sq m Chronic Kidney Disease: <60 mL/min/1.73sq m Kidney failure: <15 mL/min/1.73sq m eGFR calculated using average adult body mass. Additional eGFR calculator available at: http://www.Public[employer]/multiple_crcl_2012.htm Performed By: #### L ACDS #### [address] [address] Refrigerator Crater: Ronn Arias MD Anion gap [Moles/Vol] 16 mmol/L Normal 9-17 [facility] Comment on above: Performed By: #### L ACDS #### [address] [address] Refrigerator Crater: Ronn Arias MD Calcium [Mass/Vol] 6.9 mg/dL Low 8.6-10.4 [facility] Comment on above: Performed By: #### L ACDS #### [address] [address] Refrigerator Crater: Ronn Arias MD Chloride [Moles/Vol] 106 mmol/L Normal 98-107 [facility] Comment on above: Performed By: #### L ACDS #### [address] [address] Refrigerator Crater: Ronn Arias MD CO2 [Moles/Vol] 16 mmol/L Low 20-31 [facility] Comment on above: Performed By: #### L ACDS #### [address] [address] Refrigerator Crater: Ronn Arias MD Creatinine [Mass/Vol] 3.44 mg/dL High 0.70-1.20 [facility] Comment on above: Performed By: #### L ACDS #### [address] [address] Refrigerator Crater: Ronn Arias MD GFR, Amer 22 mL/min Low >60 [facility] Comment on above: Performed By: #### L ACDS #### [address] [address] Refrigerator Crater: Ronn Arias MD GFR,non Amer 18 mL/min Low >60 [facility] Comment on above: Performed By: #### L ACDS #### [address] [address] Refrigerator Crater: Ronn Arias MD Glucose [Mass/Vol] 138 mg/dL High 70-99 [facility] Comment on above: Performed By: #### L ACDS #### [address] [address] Refrigerator Crater: Ronn Arias MD Potassium [Moles/Vol] 4.8 mmol/L Normal 3.7-5.3 [facility] Comment on above: Performed By: #### L ACDS #### [facility] [address] [place] [address] Refrigerator Crater: Ronn Arias MD Sodium [Moles/Vol] 138 mmol/L Normal 135-144 [facility] Comment on above: Performed By: #### L ACDS #### [facility] [address] [place], [place] [phone] Refrigerator Crater: Ronn Arias MD Urea nitrogen [Mass/Vol] 53 mg/dL High 8-23 [facility] Comment on above: Performed By: #### L ACDS #### [facility] [address] [place], [place] [phone] Refrigerator Crater: Ronn Arias MD Basic Metabolic Panel w/ Ref luz to [facility]on 01-03-2022 Anion gap [Moles/Vol] 16 mmol/L 9 - 17 mmol/L [facility] Calcium [Mass/Vol] 6.9 mg/dL Low 8.6 - 10. 4 mg/dL [facility] Chloride [Moles/Vol] 106 mmol/L 98 - 107 mmol/L [facility] CO2 [Moles/Vol] 16 mmol/L Low 20 - 31 mmol/L [facility] Creatinine [Mass/Vol] 3.44 mg/dL High 0.7 - 1.2 mg/dL [facility] GFR 22 mL/min Low 60 - PINF mL/min [facility] GFR Non- 18 mL/min Low 60 - PINF mL/min [facility] GFR/1.73 sq M.predicted MDRD (S/P/Bld) [Vol rate/Area] [facility] Comment on above: Average GFR for 60-6 9 years old: 85 mL/min/1.73sq m Chronic Kidney Disease: <60 mL/min/1.73sq m Kidney failure: <15 mL/min/1.73sq m eGFR calculated using average adult body mass. Additional eGFR calculator available at: http://www.Public[employer]/multiple_crcl_2012.htm Glucose [Mass/Vol] 138 mg/dL High 70 - 99 mg/dL [facility] Potassium [Moles/Vol] 4.8 mmol/L 3.7 - 5.3 mmol/L [facility] Sodium [Moles/Vol] 138 mmol/L 135 - 144 mmol/L [facility] Urea nitrogen (BldV) [Mass/Vol] 53 mg/dL High 8 - 23 mg/dL [facility] C3on 01-03-2022 C3 108 mg/dL Normal 90-180 [facility] Comment on above: Performed By: #### U RNA, URTPRT, UMICAO, UEOS, UA #### [facility] [address] [place] [address] Refrigerator Crater: Ronn Arias MD C3 COMPLEMENTon 01-03-2022 Complement C3 108 mg/dL 90 - 180 mg/dL [facility] C4on 01-03-2022 C4 21 mg/dL Normal 10-40 [facility] Comment on above: Performed By: #### U RNA, URTPRT, UMICAO, UEOS, UA #### [facility] [address] [place] [address] Refrigerator Crater: Ronn Arias MD C4 COMPLEMENTon 01-03-2022 Complement C4 21 mg/dL 10 - 40 mg/dL [facility] CBC with Auto Differentialon 01-03-2022 Absolute Eos # [facility] Absolute Immature Granulocyte 0.09 [facility] Absolute Lymph # 0.76 Low [facility] Absolute [place] # 0.39 [facility] Basophils Absolute [facility] Basophils/100 WBC (Bld) 0 % 0 - 2 % [facility] Eosinophils/100 WBC (Bld) 0 % Low 1 - 4 % [facility] Hematocrit (Bld) [Volume fraction] 31.4 % Low 40.7 - 50.3 % [facility] Hemoglobin (Bld) [Mass/Vol] 10.3 g/dL Low 13 - 17 g/dL [facility] Immature granulocytes/100 WBC (Bld) 1 % High 0 [facility] Interpretation and review of laboratory results Abnormal [facility] Lymphocytes/100 WBC (Bld) 6 % Low 24 - 43 % [facility] MCH (RBC) [Entitic mass] 27.5 pg 25.2 - 33.5 pg [facility] MCHC (RBC) [Mass/Vol] 32.8 g/dL 28.4 - 34.8 g/dL [facility] MCV (RBC) [Entitic vol] 83.7 fL 82.6 - 102.9 fL [facility] Monocytes/100 WBC (Bld) 3 % 3 - 12 % [facility] NRBC Automated 0.0 0.0 per 100 WBC [facility] Platelet distribution width (Bld) [Ratio] 14.5 % High 11.8 - 14.4 % [facility] Platelet mean volume (Bld) [Entitic vol] 10.9 fL 8.1 - 13.5 fL [facility] Platelets (Bld) [#/Vol] 170 10*3/uL [facility] RBC (Bld) [#/Vol] 3.75 10*6/uL Low 4.21 - 5.77 m/uL [facility] RBC (Bld) [#/Vol] ANISOCYTOSIS PRESENT [facility] Segmented neutrophils/100 WBC (Bld) 90 % High 36 - 65 % [facility] Segs Absolute 11.26 High [facility] WBC (Bld) [#/Vol] 12.5 10*3/uL High [facility]NOTE 2] CBC with Diffon 01-03-2022 Abs. Basophil <0.03 Normal 0.00-0.20 [facility] Comment on above: Performed By: #### L ACDS #### [facility] [address] [place] [address] Refrigerator Cr[employer]: Ronn Arias MD Abs. Eosinophil <0.03 Normal 0.00-0.44 [facility] Comment on above: Performed By: #### L ACDS #### [address] [address] Refrigerator Cr[employer]: Ronn Arias MD Abs.Imm.Granulocyte 0.09 k/uL Normal 0.00-0.30 [facility] Comment on above: Performed By: #### L ACDS #### [address] [address] Refriger[employer]: Ronn Arias MD Abs.Neutrophil (Seg) 11.26 k/uL High 1.50-8.10 [facility] Comment on above: Performed By: #### L ACDS #### [address] [address] [employer]: Ronn Arias MD Basophils/100 WBC (Bld) 0 % Normal 0-2 [facility] Comment on above: Performed By: #### L ACDS #### [address] [address] Refriger[employer]: Ronn Arias MD Eosinophils/100 WBC (Bld) 0 % Low 1-4 [facility] Comment on above: Performed By: #### L ACDS #### [address] [address] [employer]riger[employer]: Ronn Arias MD Erythrocyte distribution width (RBC) [Ratio] 14.5 % High 11.8-14.4 [facility] Comment on above: Performed By: #### L ACDS #### [address] [address] [employer]: Ronn Arias MD Hematocrit (Bld) [Volume fraction] 31.4 % Low 40.7-50.3 [facility] Comment on above: Performed By: #### L ACDS #### [address] [address] Refriger[employer]: Ronn Arias MD Hemoglobin (Bld) [Mass/Vol] 10.3 g/dL Low 13.0-17.0 [facility] Comment on above: Performed By: #### L ACDS #### [address] [address] [employer]: Ronn Arias MD Immature granulocytes/100 WBC (Bld) 1 % High 0 [facility] Comment on above: Performed By: #### L ACDS #### [place] [address] [employer]: Ronn Arias MD Lymphocytes (Bld) [#/Vol] 0.76 10*3/uL Low 1.10-3.70 [facility] Comment on above: Performed By: #### L ACDS #### [place] [address] Refriger[employer]: Ronn Arias MD Lymphocytes/100 WBC (Bld) 6 % Low 24-43 [facility] Comment on above: Performed By: #### L ACDS #### [place] [address] Refriger[employer] Cr[employer]: Ronn Arias MD MCH (RBC) [Entitic mass] 27.5 pg Normal 25.2-33.5 [facility] Comment on above: Performed By: #### L ACDS #### [place] [address] Refr[employer]: Ronn Arias MD MCHC (RBC) [Mass/Vol] 32.8 g/dL Normal 28.4-34.8 [facility] Comment on above: Performed By: #### L ACDS #### [address] [address] Refr[employer]: Ronn Arias MD MCV (RBC) [Entitic vol] 83.7 fL Normal 82.6-102.9 [facility] Comment on above: Performed By: #### L ACDS #### [address] [address] Refriger[employer]: Ronn Arias MD Monocytes (Bld) [#/Vol] 0.39 10*3/uL Normal 0.10-1.20 [facility] Comment on above: Performed By: #### L ACDS #### [address] [address] Refriger[employer]: Ronn Arias MD Monocytes/100 WBC (Bld) 3 % Normal 3-12 [facility] Comment on above: Performed By: #### L ACDS #### [address] [address] [employer]: Ronn Arias MD Neutrophil (Seg) 90 % High 36-65 [facility] Comment on above: Performed By: #### L ACDS #### [address] [address] Refr[employer]: Ronn Arias MD NRBC Automated 0.0 per 100 WBC Normal 0.0 [facility] Comment on above: Performed By: #### L ACDS #### [address] [address] [employer]: Ronn Arias MD Platelet mean volume (Bld) [Entitic vol] 10.9 fL Normal 8.1-13.5 [facility] Comment on above: Performed By: #### L ACDS #### [address] [address] [employer]: Ronn Arias MD Platelets (Bld) [#/Vol] 170 10*3/uL Normal 138-453 [facility] Comment on above: Performed By: #### L ACDS #### [address] [address] Refr[employer]: Ronn Arias MD RBC (Bld) [#/Vol] 3.75 10*6/uL Low 4.21-5.77 [facility] Comment on above: Performed By: #### L ACDS #### [address] [address] [employer]: Ronn Arias MD RBC morphology finding Nom (Bld) ANISOCYTOSIS PRESENT Normal [facility] Comment on above: Performed By: #### L ACDS #### [address] [address] [employer]: Ronn Arias MD WBC (Bld) [#/Vol] 12.5 10*3/uL High 3.5-11.3 [facility] Comment on above: Performed By: #### L ACDS #### [address] [address] Refriger[employer]: Ronn Arias MD EOSINOPHILS, URINEon 022 Eosinophil, Ur NONE SEEN NONE SEEN [facility] Eosinophils, Urineon 022 Eosinophils, Urine NONE SEEN Normal NSN [facility] Comment on above: Performed By: #### U RNA, URTPRT, UMICAO, UEOS, UA #### [address] [address] Refriger[employer]: Ronn Arias MD Free [place] + Lambdaon 2021 Free [place] Lt Chains 4.01 mg/dL High 0.37-1.94 [facility] Comment on above: Performed By: #### U RNA, URTPRT, UMICAO, UEOS, UA #### [address] [address] Refriger[employer]: Ronn Arias MD Free [place]/Lambda Rat 1.94 High 0.26-1.65 [facility] Comment on above: Performed By: #### U RNA, URTPRT, UMICAO, UEOS, UA #### [facility] [address] [place], [place] [address] Refrigerator Cr[employer]: Ronn Arias MD Free Lambda Lt Chains 2.07 mg/dL Normal 0.57-2.63 [facility] Comment on above: Performed By: #### U RNA, URTPRT, UMICAO, UEOS, UA #### [facility] [address] [place], [place] [id number] Refr[employer]: Ronn Arias MD Hepatic Function Panelon Albumin [Mass/Vol] 3.2 g/dL Low 3.5 - 5.2 g/dL [facility] Albumin/Globulin [Mass ratio] 0.9 {ratio} Low 1 - 2.5 [facility] ALP (Bld) [Catalytic activity/Vol] 104 U/L 40 - 129 U/L [facility] ALT [Catalytic activity/Vol] 94 U/L High 5 - 41 U/L [facility] AST [Catalytic activity/Vol] 49 U/L High NINF - 40 U/L [facility] Bilirubin [Mass/Vol] 1.1 mg/dL 0.3 - 1.2 mg/dL [facility] Bilirubin, Indirect 0.5 mg/dL 0 - 1 mg/dL [facility] Bilirubin.indirect [Mass/Vol] 0.6 mg/dL High NINF - 0.31 mg/dL [facility] Free PSA/Total PSA [Mass fraction] 6.7 g/dL 6.4 - 8.3 g/dL [facility] [place]/Lambda Quantitative Fr ee Light Chains, Serumon 01-03-2022 Free [place]/Lambda Ratio 1.94 High 0.26 - 1.65 [facility] Interpretation and review of laboratory results Abnormal [facility] [place] Free Light Chains QNT 4.01 mg/dL High 0.37 - 1.94 mg/dL [facility] Lambda Free Light Chains QNT 2.07 mg/dL 0.57 - 2.63 mg/dL [facility] Lactate, Sepsison 01-03-2022 Lactic Acid,Sep Wbld 1.8 mmol/L Normal 0.5-1.9 [facility] Comment on above: Performed By: #### L ACDS #### [facility] [address] [place] [address] [phone] Refrigerator Crater: Ronn Arias MD Lactic Acid, Sepsis, Whole Blood 1.8 mmol/L 0.5 - 1.9 mmol/L [facility] Lactic Acid,Sep Wbld 1.4 mmol/L Normal 0.5-1.9 [facility] Comment on above: Performed By: #### U RNA, URTPRT, UMICAO, UEOS, UA #### [facility] [address] [place] [address] [phone] Refrigerator Crater: Ronn Arias MD Lactic Acid, Sepsis, Whole Blood 1.4 mmol/L 0.5 - 1.9 mmol/L [facility] Lactic Acid,Sep Wbld 1.5 mmol/L Normal 0.5-1.9 [facility] Comment on above: Performed By: #### L ACDS #### [facility] [address] [place] [address] [phone] Refrigerator Crater: Ronn Arias MD Lactic Acid, Sepsis, Whole Blood 1.5 mmol/L 0.5 - 1.9 mmol/L [facility] Lactic Acid,Sep Wbld 1.2 mmol/L Normal 0.5-1.9 [facility] Comment on above: Performed By: #### L ACDS #### [facility] [address] [place] [address] Refrigerator Cr[employer]: Ronn Arias MD Lipaseon 01-03-2022 Lipase [Catalytic activity/Vol] 250 U/L High 13-60 [facility] Comment on above: Performed By: #### L ACDS #### [facility] [address] [place] [address] [phone] Refrigerator Crater: Ronn Arias MD Lipase [Catalytic activity/Vol] 250 U/L High 13 - 60 U/L ANNETTE MOCTEZUMA [facility] Liver Profileon 01-03-2022 Albumin [Mass/Vol] 3.2 g/dL Low 3.5-5.2 [facility] Comment on above: Performed By: #### L ACDS #### [address] [address] Refrigerator Crater: Ronn Arias MD Albumin/Glob Ratio 0.9 Low 1.0-2.5 [facility] Comment on above: Performed By: #### L ACDS #### [address] [address] Refrigerator Crater: Ronn Arias MD Alkaline Phos 104 U/L Normal 40-129 [facility] Comment on above: Performed By: #### L ACDS #### [address] [address] Refriger[employer] Cr[employer]: Ronn Arias MD ALT [Catalytic activity/Vol] 94 U/L High 5-41 [facility] Comment on above: Performed By: #### L ACDS #### [address] [address] Refriger[employer] Cr[employer]: Ronn Arias MD AST [Catalytic activity/Vol] 49 U/L High <40 [facility] Comment on above: Performed By: #### L ACDS #### [address] [address] Refrigerator Crater: Ronn Arias MD Bilirubin [Mass/Vol] 1.1 mg/dL Normal 0.3-1.2 [facility] Comment on above: Performed By: #### L ACDS #### [address] [address] Refrigerator Crater: Ronn Arias MD Bilirubin, Indirect 0.5 mg/dL Normal 0.00-1.00 [facility] Comment on above: Performed By: #### L ACDS #### [facility] [address] [place], [place] [phone] Refrigerator Crater: Ronn Arias MD Bilirubin.indirect [Mass/Vol] 0.6 mg/dL High <0.31 [facility] Comment on above: Performed By: #### L ACDS #### [facility] [address] [place], [place] [phone] Refrigerator Crater: Ronn Arias MD Protein [Mass/Vol] 6.7 g/dL Normal 6.4-8.3 [facility] Comment on above: Performed By: #### L ACDS #### [facility] [address] [place], [place] [phone] Refrigerator Crater: Ronn Arias MD Microscopic Urinalysison Casts UA 2 TO 5 HYALINE Refer ence range defined for non-centrifuged specimen. [facility] Epithelial Cells UA None [facility] RBC, UA 2 TO 5 [facility] Comment on above: Reference range defi juan for non-centrifuged specimen. WBC, UA 2 TO 5 [facility] No Panel Informationon 01-03 [facility] Interpretation and review of laboratory results Abnormal [facility] Procalcitoninon 01-03-2022 Procalcitonin 16.48 ng/mL High <0.09 [facility] Comment on above: Result Comment: Suspected Sepsis: [...] entered into the Change in Procalcitonin Calculator (www.spkgck-bno-radzsmlrpw.Populy Games) to determine the patient's Mortality Risk Prognosis In healthy neonates, plasma Procalcitonin (PCT) concentrations increase gradually after , reaching peak values at about 24 hours of age then decrease to normal values below 0.5 ng/mL by 48-72 hours of age. Performed By: #### L ACDS #### [facility] [address] [place] [address] Refrigerator Crater: Ronn Arias MD Interpretation and review of laboratory results Abnormal [facility] [employer] Procalcitonin 16.48 ng/mL High NINF - 0.09 ng/mL [facility] Comment on above: Suspected Sepsis: <0.50 ng/mL [...] entered into the Change in Procalcitonin Calculator (www.jjjqiu-pqx-asamrdijfb.Populy Games) to determine the patient's Mortality Risk Prognosis In healthy neonates, plasma Procalcitonin (PCT) concentrations increase gradually after , reaching peak values at about 24 hours of age then decrease to normal values below 0.5 ng/mL by 48-72 hours of age. [facility] Protein / creatinine ratio, urineon 01-03-2022 Creatinine, Ur 84.8 mg/dL 39 - 259 mg/dL [facility] Protein (U) [Mass/Vol] 16 mg/dL [facility] Comment on above: No normal range esta blished. Urine Total Protein Creatinine Ratio 0.19 0 - 0.2 [facility] Protein,Tot,[place] Uron 2021 Creatinine [Mass/Vol] 84.8 mg/dL Normal 39.0-259.0 [facility] Comment on above: Performed By: #### U RNA, URTPRT, UMICAO, UEOS, UA #### [facility] [address] [place], [place] [phone] Refrigerator Crater: Ronn Arias MD Tot Prot. Conc. 16 mg/dL Normal [facility] Comment on above: Result Comment: No n ormal range established. Performed By: #### U RNA, URTPRT, UMICAO, UEOS, UA #### [facility] [address] [place], [place] [phone] Refrigerator Crater: Ronn Arias MD TP/Cre Ratio 0.19 Normal 0.00-0.20 [facility] Comment on above: Performed By: #### U RNA, URTPRT, UMICAO, UEOS, UA #### [facility] [address] [place], [place] [phone] Refrigerator Crater: Ronn Arias MD SODIUM, URINE, RANDOMon 12-21 Sodium (U) [Moles/Vol] 83 mmol/L [facility] Comment on above: No normal range esta [...] two black choleliths, each measuring 0.5 cm. Support Services Coordinator sections 1c to include cystic duct margin (inked blue), fundus, body and neck. tm Microscopic Description Microscopic examination performed. SURGICAL PATHOLOGY CONSULTATION Patient Name: YOLI ANTUNEZ [facility] Rec: [id number] Path Number: [id number] [facility] [employer] [facility] ANATOMIC PATHOLOGY [address] [place] [address]. [place], [place] [address] [facility] Sodium, Random Uron 01-04-20 22 Sodium (U) [Moles/Vol] 83 mmol/L Normal [facility] Comment on above: Result Comment: No n ormal range established. Performed By: #### U RNA, URTPRT, UMICAO, UEOS, UA #### [facility] [address] [place] [address] Refrigerator Crater: Ronn Arias MD Urinalysison 01-03-2022 Bilirubin Urine Negative NEGATIVE [facility] Color, UA Yellow Yellow [facility] Glucose, Ur Negative NEGATIVE [facility] Interpretation and review of laboratory results Abnormal [facility] Ketones Ql (U) Negative NEGATIVE [facility] Leukocyte esterase Test strip Ql (U) Negative NEGATIVE [facility] Nitrite, Urine Negative NEGATIVE [facility] pH, UA 5.5 5 - 8 [facility] Protein, UA TRACE Abnormal NEGATIVE [facility] Specific [place], UA 1.014 1.005 - 1.03 [facility] Turbidity UA Clear Clear [facility] Urine Hgb TRACE Abnormal NEGATIVE [facility] Urobilinogen, Urine Normal Normal [facility] Urinalysis, Routineon 2021 Bilirubin, SemiQt,Ur Negative Normal NEG [facility] Comment on above: Performed By: #### U RNA, URTPRT, UMICAO, UEOS, UA #### [address] [address] Refrigerator Crater: Ronn Arias MD Blood, Urine TRACE Abnormal NEG [facility] Comment on above: Performed By: #### U RNA, URTPRT, UMICAO, UEOS, UA #### [address] [address] Refrigerator Crater: Ronn Arias MD Clarity (U) Clear Normal CLEAR [facility] Comment on above: Performed By: #### U RNA, URTPRT, UMICAO, UEOS, UA #### [address] [address] Refrigerator Crater: Ronn Arias MD Color (U) Yellow Normal YEL [facility] Comment on above: Performed By: #### U RNA, URTPRT, UMICAO, UEOS, UA #### [address] [address] Refriger[employer] Cr[employer]: Ronn Arias MD Glucose Ql (U) Negative Normal NEG [facility] Comment on above: Performed By: #### U RNA, URTPRT, UMICAO, UEOS, UA #### [address] [address] Refriger[employer]: Ronn Arias MD Ketones Ql (U) Negative Normal NEG [facility] Comment on above: Performed By: #### U RNA, URTPRT, UMICAO, UEOS, UA #### [address] [address] [employer]riger[employer]: Ronn Arias MD Leukocyte esterase Test strip Ql (U) Negative Normal NEG [facility] Comment on above: Performed By: #### U RNA, URTPRT, UMICAO, UEOS, UA #### [address] [address] Refrigerator Cr[employer]: Ronn Arias MD Nitrite,Ur Negative Normal NEG [facility] Comment on above: Performed By: #### U RNA, URTPRT, UMICAO, UEOS, UA #### [place] [address] Refrigerator Crater: Ronn Arias MD PH,Ur 5.5 Normal 5.0-8.0 [facility] Comment on above: Performed By: #### U RNA, URTPRT, UMICAO, UEOS, UA #### [address] [address] Refriger[employer] Cr[employer]: Ronn Arias MD Protein Ql (U) TRACE Abnormal NEG [facility] Comment on above: Performed By: #### U RNA, URTPRT, UMICAO, UEOS, UA #### [place] [address] Refrigerator Crater: Ronn Arias MD Spec. [place],Ur 1.014 Normal 1.005-1.03 0 [facility] Comment on above: Performed By: #### U RNA, URTPRT, UMICAO, UEOS, UA #### [place] [address] Refrigerator Crater: Ronn Arias MD Urobilinogen,Ur Normal Normal NORM [facility] Comment on above: Performed By: #### U RNA, URTPRT, UMICAO, UEOS, UA #### [address] [address] Refriger[employer] Cr[employer]: Ronn Arias MD Urinalysis,Microon 2 Casts 2 TO 5 HYALINE Normal 0-8 [facility] Comment on above: Result Comment: Refe rence range defined for non-centrifuged specimen. Performed By: #### U RNA, URTPRT, UMICAO, UEOS, UA #### [facility] [address] [place] [address] Refrigerator Crater: Ronn Arias MD Epithelial cells LM Ql (Urine sed) None Normal 0-5 [facility] Comment on above: Performed By: #### U RNA, URTPRT, UMICAO, UEOS, UA #### [facility] [address] [place] [address] Refrigerator Crater: Ronn Arias MD Urine RBC's 2 TO 5 Normal 0-4 [facility] Comment on above: Result Comment: Refe rence range defined for non-centrifuged specimen. Performed By: #### U RNA, URTPRT, UMICAO, UEOS, UA #### [address] [address] [employer]riger[employer]: Ronn Arias MD Urine WBC's 2 TO 5 Normal 0-5 [facility] Comment on above: Performed By: #### U RNA, URTPRT, UMICAO, UEOS, UA #### [address] [address] Refrigerator Cr[employer]: Ronn Arias MD Basic Metab w/rfx MGon 01-02 (cont.) Normal [facility] Comment on above: Result Comment: Aver age GFR for 60-69 years old: 85 mL/min/1.73sq m Chronic Kidney Disease: <60 mL/min/1.73sq m Kidney failure: <15 mL/min/1.73sq m eGFR calculated using average adult body mass. Additional eGFR calculator available at: http://www.Publicfast.Populy Games/multiple_crcl_2012.htm Performed By: #### L ACDS #### [address] [address] Refrigerator Crater: Ronn Arias MD Anion gap [Moles/Vol] 14 mmol/L Normal 9-17 [facility] Comment on above: Performed By: #### L ACDS #### [address] [address] Refrigerator Crater: Ronn Arias MD Calcium [Mass/Vol] 7.2 mg/dL Low 8.6-10.4 [facility] Comment on above: Performed By: #### L ACDS #### [address] [address] Refrigerator Crater: Ronn Arias MD Chloride [Moles/Vol] 108 mmol/L High 98-107 [facility] Comment on above: Performed By: #### L ACDS #### [address] [address] Refrigerator Crater: Ronn Arias MD CO2 [Moles/Vol] 20 mmol/L Normal 20-31 [facility] Comment on above: Performed By: #### L ACDS #### [address] [address] Refrigerator Crater: Ronn Arias MD Creatinine [Mass/Vol] 3.51 mg/dL High 0.70-1.20 [facility] Comment on above: Performed By: #### L ACDS #### [address] [address] Refrigerator Crater: Ronn Arias MD GFR, Amer 21 mL/min Low >60 [facility] Comment on above: Performed By: #### L ACDS #### [address] [address] Refrigerator Crater: Ronn Arias MD GFR,non Amer 17 mL/min Low >60 [facility] Comment on above: Performed By: #### L ACDS #### [address] [phone] Refrigerator Crater: Ronn Arias MD Glucose [Mass/Vol] 122 mg/dL High 70-99 [facility] Comment on above: Performed By: #### L ACDS #### [address] [address] Refrigerator Crater: Ronn Arias MD Potassium [Moles/Vol] 5.0 mmol/L Normal 3.7-5.3 [facility] Comment on above: Performed By: #### L ACDS #### [address] [address] Refrigerator Cr[employer]: Ronn Arias MD Sodium [Moles/Vol] 142 mmol/L Normal 135-144 [facility] Comment on above: Performed By: #### L ACDS #### [address] [address] Refrigerator Crater: Ronn Arias MD Urea nitrogen [Mass/Vol] 55 mg/dL High 8-23 [facility] Comment on above: Performed By: #### L ACDS #### [address] [address] Refrigerator Crater: Ronn Arias MD (cont.) [facility] Comment on above: Result Comment: Aver age GFR for 60-69 years old: 85 mL/min/1.73sq m Chronic Kidney Disease: <60 mL/min/1.73sq m Kidney failure: <15 mL/min/1.73sq m eGFR calculated using average adult body mass. Additional eGFR calculator available at: http://www.Publicfast.com/multiple_crcl_2012.htm Performed By: #### L IVP, BMPX, LIP, CDP #### [facility] [address] [place] [address] Refrigerator Crater: Ronn Arias MD Anion gap [Moles/Vol] 14 mmol/L Normal 9-17 [facility] Comment on above: Performed By: #### L IVP, BMPX, LIP, CDP #### [facility] [address] [place] [address] Refrigerator Crater: Ronn Arias MD Calcium [Mass/Vol] 7.2 mg/dL Low 8.6-10.4 [facility] Comment on above: Performed By: #### L IVP, BMPX, LIP, CDP #### [facility] [address] [place] [address] Refrigerator Crater: Ronn Arias MD Chloride [Moles/Vol] 109 mmol/L High 98-107 [facility] Comment on above: Performed By: #### L IVP, BMPX, LIP, CDP #### [facility] [address] [place] [address] Refrigerator Crater: Ronn Arias MD CO2 [Moles/Vol] 18 mmol/L Low 20-31 [facility] Comment on above: Performed By: #### L IVP, BMPX, LIP, CDP #### [facility] [address] [place] [address] Refrigerator Crater: Ronn Arias MD Creatinine [Mass/Vol] 4.02 mg/dL High 0.70-1.20 [facility] Comment on above: Performed By: #### L IVP, BMPX, LIP, CDP #### [facility] [address] [place] [address] Refrigerator Crater: Ronn Arias MD GFR, Amer 18 mL/min Low >60 [facility] Comment on above: Performed By: #### L IVP, BMPX, LIP, CDP #### [facility] [address] [place] [address] Refrigerator Crater: Ronn Arias MD GFR,non Amer 15 mL/min Low >60 [facility] Comment on above: Performed By: #### L IVP, BMPX, LIP, CDP #### [facility] [address] [place] [address] Refrigerator Crater: Ronn Arias MD Glucose [Mass/Vol] 106 mg/dL High 70-99 [facility] Comment on above: Performed By: #### L IVP, BMPX, LIP, CDP #### [facility] [address] [place], [place] [phone] Refrigerator Crater: Ronn Arias MD Potassium [Moles/Vol] 4.6 mmol/L Normal 3.7-5.3 [facility] Comment on above: Performed By: #### L IVP, BMPX, LIP, CDP #### [facility] [address] [place] [address] Refrigerator Crater: Ronn Arias MD Sodium [Moles/Vol] 141 mmol/L Normal 135-144 [facility] Comment on above: Performed By: #### L IVP, BMPX, LIP, CDP #### [facility] [address] [place], [place] [phone] Refrigerator Crater: Ronn Arias MD Urea nitrogen [Mass/Vol] 63 mg/dL High 8-23 [facility] Comment on above: Performed By: #### L IVP, BMPX, LIP, CDP #### [facility] [place], [place] [phone] Refrigerator Crater: Ronn Arias MD Basic Metabolic Panel w/ Ref luz to MGon 01-02-2022 Anion gap [Moles/Vol] 14 mmol/L 9 - 17 mmol/L [facility] Calcium [Mass/Vol] 7.2 mg/dL Low 8.6 - 10. 4 mg/dL [facility] Chloride [Moles/Vol] 108 mmol/L High 98 - 107 mmol/L [facility] CO2 [Moles/Vol] 20 mmol/L 20 - 31 mmol/L [facility] Creatinine [Mass/Vol] 3.51 mg/dL High 0.7 - 1.2 mg/dL [facility] GFR 21 mL/min Low 60 - PINF mL/min [facility] GFR Non- 17 mL/min Low 60 - PINF mL/min [facility] GFR/1.73 sq M.predicted MDRD (S/P/Bld) [Vol rate/Area] [facility] Comment on above: Average GFR for 60-6 9 years old: 85 mL/min/1.73sq m Chronic Kidney Disease: <60 mL/min/1.73sq m Kidney failure: <15 mL/min/1.73sq m eGFR calculated using average adult body mass. Additional eGFR calculator available at: http://www.Adtuitive/multiple_crcl_2011.htm Glucose [Mass/Vol] 122 mg/dL High 70 - 99 mg/dL [facility] Interpretation and review of laboratory results Abnormal [facility] Potassium [Moles/Vol] 5.0 mmol/L 3.7 - 5.3 mmol/L [facility] Sodium [Moles/Vol] 142 mmol/L 135 - 144 mmol/L [facility] Urea nitrogen (BldV) [Mass/Vol] 55 mg/dL High 8 - 23 mg/dL [facility] Anion gap [Moles/Vol] 14 mmol/L 9 - 17 mmol/L [facility] Calcium [Mass/Vol] 7.2 mg/dL Low 8.6 - 10. 4 mg/dL [facility] Chloride [Moles/Vol] 109 mmol/L High 98 - 107 mmol/L [facility] CO2 [Moles/Vol] 18 mmol/L Low 20 - 31 mmol/L [facility] Creatinine [Mass/Vol] 4.02 mg/dL High 0.7 - 1.2 mg/dL [facility] GFR 18 mL/min Low 60 - PINF mL/min [facility] GFR Non- 15 mL/min Low 60 - PINF mL/min [facility] GFR/1.73 sq M.predicted MDRD (S/P/Bld) [Vol rate/Area] [facility] Comment on above: Average GFR for 60-6 9 years old: 85 mL/min/1.73sq m Chronic Kidney Disease: <60 mL/min/1.73sq m Kidney failure: <15 mL/min/1.73sq m eGFR calculated using average adult body mass. Additional eGFR calculator available at: http://www.Adtuitive/multiple_crcl_2012.htm Glucose [Mass/Vol] 106 mg/dL High 70 - 99 mg/dL [facility] Potassium [Moles/Vol] 4.6 mmol/L 3.7 - 5.3 mmol/L [facility] Sodium [Moles/Vol] 141 mmol/L 135 - 144 mmol/L [facility] Urea nitrogen (BldV) [Mass/Vol] 63 mg/dL High 8 - 23 mg/dL [facility] CBC with Auto Differentialon 01-02-2022 Absolute Eos # 0.12 [facility] [facility] Absolute Immature Granulocyte 0.00 [facility] Absolute Lymph # 0.37 Low [facility] Absolute [place] # 0.49 [facility] Basophils (Bld) [#/Vol] 0.00 10*3/uL [facility] Basophils/100 WBC (Bld) 0 % 0 - 2 % [facility] Eosinophils/100 WBC (Bld) 1 % 1 - 4 % [facility] Hematocrit (Bld) [Volume fraction] 30.4 % Low 40.7 - 50.3 % [facility] Hemoglobin (Bld) [Mass/Vol] 10.2 g/dL Low 13 - 17 g/dL [facility] Immature granulocytes/100 WBC (Bld) 0 % 0 [facility] Interpretation and review of laboratory results Abnormal [facility] Lymphocytes/100 WBC (Bld) 3 % Low 24 - 44 % [facility] MCH (RBC) [Entitic mass] 28.0 pg 25.2 - 33.5 pg [facility] MCHC (RBC) [Mass/Vol] 33.6 g/dL 28.4 - 34.8 g/dL [facility] MCV (RBC) [Entitic vol] 83.5 fL 82.6 - 102.9 fL [facility] Monocytes/100 WBC (Bld) 4 % 1 - 7 % [facility] [employer] Morph[employer] Gordon (Bld) [Interp] Normal [facility] NRBC Automated 0.0 0.0 per 100 WBC [facility] Platelet distribution width (Bld) [Ratio] 14.4 % 11.8 - 14.4 % [facility] Platelet mean volume (Bld) [Entitic vol] 10.3 fL 8.1 - 13.5 fL [facility] Platelets (Bld) [#/Vol] 150 10*3/uL [facility] RBC (Bld) [#/Vol] 3.64 10*6/uL Low 4.21 - 5.77 m/uL [facility] Segmented neutrophils/100 WBC (Bld) 92 % High 36 - 66 % [facility] Segs Absolute 11.22 High [facility] WBC (Bld) [#/Vol] 12.2 10*3/uL High [facility]NOTE 2] CBC with Diffon 01-02-2022 Abs. Basophil 0.00 k/uL Normal 0.0-0.2 [facility] Comment on above: Performed By: #### L ACDS #### [facility] [address] [place] [address] Refrigerator Cr[employer]: Ronn Arias MD Abs.Imm.Granulocyte 0.00 k/uL Normal 0.00-0.30 [facility] Comment on above: Performed By: #### L ACDS #### [facility] [address] [place] [address] Refrigerator [employer]: Ronn Arias MD Abs.Neutrophil (Seg) 11.22 k/uL High 1.8-7.7 [facility] Comment on above: Performed By: #### L ACDS #### [facility] [address] [place] [phone] Refriger[employer]: Ronn Arias MD Basophils/100 WBC (Bld) 0 % Normal 0-2 [facility] Comment on above: Performed By: #### L ACDS #### [address] [address] [employer]: Ronn Arias MD Eosinophils (Bld) [#/Vol] 0.12 10*3/uL Normal 0.0-0.4 [facility] Comment on above: Performed By: #### L ACDS #### [address] [address] [employer]: Ronn Arias MD Eosinophils/100 WBC (Bld) 1 % Normal 1-4 [facility] Comment on above: Performed By: #### L ACDS #### [address] [address] [employer]: Ronn Arias MD Immature granulocytes/100 WBC (Bld) 0 % Normal 0 [facility] Comment on above: Performed By: #### L ACDS #### [address] [address] Refr[employer]: Ronn Arias MD Lymphocytes (Bld) [#/Vol] 0.37 10*3/uL Low 1.0-4.8 [facility] Comment on above: Performed By: #### L ACDS #### [address] [address] Refr[employer]: Ronn Arias MD Lymphocytes/100 WBC (Bld) 3 % Low 24-44 [facility] Comment on above: Performed By: #### L ACDS #### [address] [address] Refriger[employer]: Ronn Arias MD Monocytes (Bld) [#/Vol] 0.49 10*3/uL Normal 0.1-0.8 [facility] Comment on above: Performed By: #### L ACDS #### [address] [address] Refr[employer]: Ronn Arias MD Monocytes/100 WBC (Bld) 4 % Normal 1-7 [facility] Comment on above: Performed By: #### L ACDS #### [address] [address] Refriger[employer]: Ronn Arias MD Morphology Gordon (Bld) [Interp] Normal Normal [facility] Comment on above: Performed By: #### L ACDS #### [address] [address] Refriger[employer]: Ronn Arias MD Neutrophil (Seg) 92 % High 36-66 [facility] Comment on above: Performed By: #### L ACDS #### [address] [address] [employer]: Ronn Arias MD Erythrocyte distribution width (RBC) [Ratio] 14.4 % Normal 11.8-14.4 [facility] Comment on above: Performed By: #### L ACDS #### [address] [address] Refrigerator Crater: Ronn Arias MD Hematocrit (Bld) [Volume fraction] 30.4 % Low 40.7-50.3 [facility] Comment on above: Performed By: #### L ACDS #### [address] [address] Refrigerator Crater: Ronn Arias MD Hemoglobin (Bld) [Mass/Vol] 10.2 g/dL Low 13.0-17.0 [facility] Comment on above: Performed By: #### L ACDS #### [address] [address] Refrigerator Crater: Ronn Arias MD MCH (RBC) [Entitic mass] 28.0 pg Normal 25.2-33.5 [facility] Comment on above: Performed By: #### L ACDS #### [address] [address] Refrigerator Crater: Ronn Arias MD MCHC (RBC) [Mass/Vol] 33.6 g/dL Normal 28.4-34.8 [facility] Comment on above: Performed By: #### L ACDS #### [place] [address] Refrigerator Crater: Ronn Arias MD MCV (RBC) [Entitic vol] 83.5 fL Normal 82.6-102.9 [facility] Comment on above: Performed By: #### L ACDS #### [place] [address] Refrigerator Crater: Ronn Arias MD NRBC Automated 0.0 per 100 WBC Normal 0.0 [facility] Comment on above: Performed By: #### L ACDS #### [place] [address] Refrigerator Crater: Ronn Arias MD Platelet mean volume (Bld) [Entitic vol] 10.3 fL Normal 8.1-13.5 [facility] Comment on above: Performed By: #### L ACDS #### [place] [address] Refrigerator Crater: Ronn Arias MD Platelets (Bld) [#/Vol] 150 10*3/uL Normal 138-453 [facility] Comment on above: Performed By: #### L ACDS #### [address] [address] Refrigerator Crater: Ronn Arias MD RBC (Bld) [#/Vol] 3.64 10*6/uL Low 4.21-5.77 [facility] Comment on above: Performed By: #### L ACDS #### [facility] [address] [place] [address] Refrigerator Crater: Ronn Arias MD WBC (Bld) [#/Vol] 12.2 10*3/uL High 3.5-11.3 [facility] Comment on above: Performed By: #### L ACDS #### [facility] [address] [place] [address] Refrigerator Crater: Ronn Arias MD Cult,Urineon 01-02-2022 Cult,Urine Specimen Description .URINE Culture NO GROWTH Report Status FINAL 01/02/2022 Normal [facility] Comment on above: Performed By: #### U RNA, URTPRT, UMICAO, UEOS, UA #### [facility] [address] [place] [address] Refrigerator Crater: Ronn Arias MD Culture, Urineon 01-02-2022 Bacteria identified Cx Nom (U) NO GROWTH [facility] Specimen Description .URINE [facility] Hepatic Function Panelon Albumin [Mass/Vol] 2.9 g/dL Low 3.5 - 5.2 g/dL [facility] Albumin/Globulin [Mass ratio] 0.9 {ratio} Low 1 - 2.5 [facility] ALP (Bld) [Catalytic activity/Vol] 96 U/L 40 - 129 U/L [facility] ALT [Catalytic activity/Vol] 123 U/L High 5 - 41 U/L [facility] AST [Catalytic activity/Vol] 50 U/L High NINF - 40 U/L [facility] Bilirubin [Mass/Vol] 1.8 mg/dL High 0.3 - 1.2 mg/dL [facility] Bilirubin, Indirect 0.7 mg/dL 0 - 1 mg/dL [facility] Bilirubin.indirect [Mass/Vol] 1.1 mg/dL High NINF - 0.31 mg/dL [facility] Free PSA/Total PSA [Mass fraction] 6.1 g/dL Low 6.4 - 8.3 g/dL [facility] Lactate, Sepsison 01-02-2022 Lactic Acid, Sepsis, Whole Blood 1.2 mmol/L 0.5 - 1.9 mmol/L [facility] Lactic Acid,Sep Wbld 1.3 mmol/L Normal 0.5-1.9 [facility] Comment on above: Performed By: #### U RNA, URTPRT, UMICAO, UEOS, UA #### [facility] [place], [place] [id number] Refrigerator Crater: Ronn Arias MD Lactic Acid, Sepsis, Whole Blood 1.3 mmol/L 0.5 - 1.9 mmol/L [facility] Lactic Acid,Sep Wbld 1.0 mmol/L Normal 0.5-1.9 [facility] Comment on above: Performed By: #### U RNA, URTPRT, UMICAO, UEOS, UA #### [facility] [address] [place] [address] Refrigerator Crater: Ronn Arias MD Lactic Acid, Sepsis, Whole Blood 1.0 mmol/L 0.5 - 1.9 mmol/L [facility] Lactic Acid,Sep Wbld 0.9 mmol/L Normal 0.5-1.9 [facility] Comment on above: Performed By: #### U RNA, URTPRT, UMICAO, UEOS, UA #### [facility] [address] [place] [address] [phone] Refrigerator Crater: Ronn Arias MD Lactic Acid, Sepsis, Whole Blood 0.9 mmol/L 0.5 - 1.9 mmol/L [facility] Lipaseon 01-02-2022 Lipase [Catalytic activity/Vol] 1280 U/L High 13-60 [facility] Comment on above: Performed By: #### L IVP, BMPX, LIP, CDP #### [address] [address] Refrigerator Crater: Ronn Arias MD Interpretation and review of laboratory results Abnormal [facility] Lipase [Catalytic activity/Vol] 1280 U/L High 13 - 60 U/L [facility] Liver Profileon 01-02-2022 Albumin [Mass/Vol] 2.9 g/dL Low 3.5-5.2 [facility] Comment on above: Performed By: #### L IVP, BMPX, LIP, CDP #### [facility] [address] [place] [address] Refrigerator Crater: Ronn Arias MD Albumin/Glob Ratio 0.9 Low 1.0-2.5 [facility] Comment on above: Performed By: #### L IVP, BMPX, LIP, CDP #### [facility] [address] [place] [address] Refrigerator Crater: Ronn Arias MD Alkaline Phos 96 U/L Normal 40-129 [facility] Comment on above: Performed By: #### L IVP, BMPX, LIP, CDP #### [facility] [address] [place] [address] Refrigerator Crater: Ronn Arias MD ALT [Catalytic activity/Vol] 123 U/L High 5-41 [facility] Comment on above: Performed By: #### L IVP, BMPX, LIP, CDP #### [facility] [address] [place] [address] Refrigerator Crater: Ronn Arias MD AST [Catalytic activity/Vol] 50 U/L High <40 [facility] Comment on above: Performed By: #### L IVP, BMPX, LIP, CDP #### [facility] [address] [place] [address] Refrigerator Crater: Ronn Arias MD Bilirubin [Mass/Vol] 1.8 mg/dL High 0.3-1.2 [facility] Comment on above: Performed By: #### L IVP, BMPX, LIP, CDP #### [facility] [place] [address] Refrigerator Crater: Ronn Arias MD Bilirubin, Indirect 0.7 mg/dL Normal 0.00-1.00 [facility] Comment on above: Performed By: #### L IVP, BMPX, LIP, CDP #### [facility] [address] [place] [address] Refrigerator Crater: Ronn Arias MD Bilirubin.indirect [Mass/Vol] 1.1 mg/dL High <0.31 [facility] Comment on above: Performed By: #### L IVP, BMPX, LIP, CDP #### [facility] [address] [place] [address] Refrigerator Cr[employer]: Ronn Arias MD Protein [Mass/Vol] 6.1 g/dL Low 6.4-8.3 [facility] Comment on above: Performed By: #### L IVP, BMPX, LIP, CDP #### [facility] [address] [place] [address] Refrigerator Cr[employer]: Ronn Arias MD No Panel Informationon 01-02 Interpretation and review of laboratory results Abnormal [facility] Protein,Tot,[place] Uron 2021 Tot Prot. Conc. 59 mg/dL Normal [facility] Comment on above: Result Comment: No n ormal range established. Performed By: #### U RNA, URTPRT, UMICAO, UEOS, UA #### [facility] [address] [place] [address] Refrigerator Crater: Ronn Arias MD Surgical Pathologyon 022 Surgical Pathology (NOTE) -- Diagnosis -- Gallbladder: - Chronic cholecystitis. - Cholelithiasis. Beth Barahona M.D. Electronically Signed Out rdd/01/03/2022 Clinical Information Pre-op Diagnosis: GALLSTONE PANCREATITIS Operative Findings: GALLBLADDER AND CONTENTS Operation Performed: LAPAROSCOPIC CHOLECYSTECTOMY Source of Specimen A: GALLBLADDER Gross Description YOLI ANTUNEZ GALLBLADDER AND CONTENTS 9.5 x 4.0 x [...] two black choleliths, each measuring 0.5 cm. Support Services Coordinator sections 1c to include cystic duct margin (inked blue), fundus, body and neck. tm Microscopic Description Microscopic examination performed. SURGICAL PATHOLOGY CONSULTATION Patient Name: YOLI ANTUNEZ [facility] Rec: [id number] Path Number: [id number] [employer] [facility] ANATOMIC PATHOLOGY [address] [place] [phone] Normal [facility] Comment on above: Performed By: #### L ACDS #### [facility] [address] [place] [address] Refrigerator Crater: Ronn Arias MD US RENAL LIMITEDon US [...] Naif Bean MD 01/02/22 Final result Normal [facility] Unremarkable renal ultrasound. No hydronephrosis. [facility] EXAMINATION: ULTRASOUND OF THE KIDNEYS 01/02/2022 [...] Gross preservation of the bilateral corticomedullary differentiation. [facility] Naif Bean MD - 01/02/2022 EXAMINATION: [...] differentiation. IMPRESSION: Unremarkable renal ultrasound. No hydronephrosis. [email or web address] Phone: Radiology Study observation (narrative) [email or web address] Phone: US RENAL LIMITEDOrdered By: Naif Bean on 01-02-2022 [email or web address] Phone: Basic Metabolic Panelon 12-21 Anion gap [Moles/Vol] 14 mmol/L mmol/L [facility] Calcium [Mass/Vol] 6.4 mg/dL Low 8.6 - 10. 4 mg/dL [facility] Chloride [Moles/Vol] 106 mmol/L 98 - 107 mmol/L [facility] CO2 [Moles/Vol] 19 mmol/L Low 20 - 31 mmol/L [facility] Creatinine [Mass/Vol] 3.73 mg/dL High 0.7 - 1.2 mg/dL [facility] Comment on above: ICTERIC SPECIMEN GFR 20 mL/min Low 60 - PINF mL/min [facility] GFR Non- 16 mL/min Low 60 - PINF mL/min [facility] GFR/1.73 sq M.predicted MDRD (S/P/Bld) [Vol rate/Area] [facility] Comment on above: Average GFR for 60-6 9 years old: 85 mL/min/1.73sq m Chronic Kidney Disease: <60 mL/min/1.73sq m Kidney failure: <15 mL/min/1.73sq m eGFR calculated using average adult body mass. Additional eGFR calculator available at: http://www.Adtuitive/multiple_crcl_2011.htm Glucose [Mass/Vol] 114 mg/dL High 70 - 99 mg/dL [facility] Interpretation and review of laboratory results Abnormal [facility] Potassium [Moles/Vol] 4.4 mmol/L 3.7 - 5.3 mmol/L [facility] Sodium [Moles/Vol] 139 mmol/L 135 - 144 mmol/L [facility] Urea nitrogen (BldV) [Mass/Vol] 58 mg/dL High 8 - 23 mg/dL [facility] Basic Metabolic Profon 01-01 (cont.) Normal [facility] Comment on above: Result Comment: Aver age GFR for 60-69 years old: 85 mL/min/1.73sq m Chronic Kidney Disease: <60 mL/min/1.73sq m Kidney failure: <15 mL/min/1.73sq m eGFR calculated using average adult body mass. Additional eGFR calculator available at: http://www.Publicfast.com/multiple_crcl_2012.htm Performed By: #### U RNA, URTPRT, UMICAO, UEOS, UA #### [facility] [address] [place] [address] Refrigerator Crater: Ronn Arias MD Anion gap [Moles/Vol] 14 mmol/L Normal 9-17 [facility] Comment on above: Performed By: #### U RNA, URTPRT, UMICAO, UEOS, UA #### [facility] [address] [place] [address] Refrigerator Crater: Ronn Arias MD Calcium [Mass/Vol] 6.4 mg/dL Low 8.6-10.4 [facility] Comment on above: Performed By: #### U RNA, URTPRT, UMICAO, UEOS, UA #### [facility] [address] [place] [address] Refrigerator Crater: Ronn Arias MD Chloride [Moles/Vol] 106 mmol/L Normal 98-107 [facility] Comment on above: Performed By: #### U RNA, URTPRT, UMICAO, UEOS, UA #### [facility] [address] [place] [address] Refrigerator Crater: Ronn Arias MD CO2 [Moles/Vol] 19 mmol/L Low 20-31 [facility] Comment on above: Performed By: #### U RNA, URTPRT, UMICAO, UEOS, UA #### [facility] [address] [place] [address] Refrigerator Crater: Ronn Arias MD Creatinine [Mass/Vol] 3.73 mg/dL High 0.70-1.20 [facility] Comment on above: Result Comment: ICTE JAYDON SPECIMEN Performed By: #### U RNA, URTPRT, UMICAO, UEOS, UA #### [facility] [address] [place] [address] Refrigerator Crater: Ronn Arias MD GFR, Amer 20 mL/min Low >60 [facility] Comment on above: Performed By: #### U RNA, URTPRT, UMICAO, UEOS, UA #### [facility] [address] [place] [address] Refrigerator Crater: Ronn Arias MD GFR,non Amer 16 mL/min Low >60 [facility] Comment on above: Performed By: #### U RNA, URTPRT, UMICAO, UEOS, UA #### [facility] [address] [place] [address] Refrigerator Crater: Ronn Arias MD Glucose [Mass/Vol] 114 mg/dL High 70-99 [facility] Comment on above: Performed By: #### U RNA, URTPRT, UMICAO, UEOS, UA #### [facility] [address] [place] [address] Refrigerator Crater: Ronn Arias MD Potassium [Moles/Vol] 4.4 mmol/L Normal 3.7-5.3 [facility] Comment on above: Performed By: #### U RNA, URTPRT, UMICAO, UEOS, UA #### [facility] [address] [place] [address] Refrigerator Crater: Ronn Arias MD Sodium [Moles/Vol] 139 mmol/L Normal 135-144 [facility] Comment on above: Performed By: #### U RNA, URTPRT, UMICAO, UEOS, UA #### [facility] [address] [place] [address] Refrigerator Crater: Ronn Arias MD Urea nitrogen [Mass/Vol] 58 mg/dL High 8-23 [facility] Comment on above: Performed By: #### U RNA, URTPRT, UMICAO, UEOS, UA #### [facility] [address] [place] [address] Refrigerator Crater: Ronn Arias MD CBCon 01-01-2022 Erythrocyte distribution width (RBC) [Ratio] 14.5 % High 11.8-14.4 [facility] Comment on above: Performed By: #### U RNA, URTPRT, UMICAO, UEOS, UA #### [facility] [address] [place] [address] Refrigerator Crater: Ronn Arias MD Hematocrit (Bld) [Volume fraction] 30.0 % Low 40.7-50.3 [facility] Comment on above: Performed By: #### U RNA, URTPRT, UMICAO, UEOS, UA #### [facility] [address] [place] [address] Refrigerator Crater: Ronn Arias MD Hemoglobin (Bld) [Mass/Vol] 10.0 g/dL Low 13.0-17.0 [facility] Comment on above: Performed By: #### U RNA, URTPRT, UMICAO, UEOS, UA #### [facility] [address] [place] [address] Refrigerator Crater: Ronn Arias MD MCH (RBC) [Entitic mass] 28.2 pg Normal 25.2-33.5 [facility] Comment on above: Performed By: #### U RNA, URTPRT, UMICAO, UEOS, UA #### [facility] [address] [place] [address] Refrigerator Crater: Ronn Arias MD MCHC (RBC) [Mass/Vol] 33.3 g/dL Normal 28.4-34.8 [facility] Comment on above: Performed By: #### U RNA, URTPRT, UMICAO, UEOS, UA #### [address] [address] Refrigerator Crater: Ronn Arias MD MCV (RBC) [Entitic vol] 84.7 fL Normal 82.6-102.9 [facility] Comment on above: Performed By: #### U RNA, URTPRT, UMICAO, UEOS, UA #### [address] [address] Refrigerator Crater: Ronn Arias MD NRBC Automated 0.0 per 100 WBC Normal 0.0 [facility] Comment on above: Performed By: #### U RNA, URTPRT, UMICAO, UEOS, UA #### [address] [address] Refrigerator Crater: Ronn Arias MD Platelet mean volume (Bld) [Entitic vol] 11.0 fL Normal 8.1-13.5 [facility] Comment on above: Performed By: #### U RNA, URTPRT, UMICAO, UEOS, UA #### [address] [address] Refrigerator Crater: Ronn Arias MD Platelets (Bld) [#/Vol] 157 10*3/uL Normal 138-453 [facility] Comment on above: Performed By: #### U RNA, URTPRT, UMICAO, UEOS, UA #### [address] [address] Refrigerator Crater: Ronn Arias MD RBC (Bld) [#/Vol] 3.54 10*6/uL Low 4.21-5.77 [facility] Comment on above: Performed By: #### U RNA, URTPRT, UMICAO, UEOS, UA #### [address] [address] Refrigerator Crater: Ronn Arias MD WBC (Bld) [#/Vol] 16.8 10*3/uL High 3.5-11.3 [facility] Comment on above: Performed By: #### U RNA, URTPRT, CHEO UEOS, UA #### [facility] [address] [place], [place] [id number] Refrigerator Crater: Ronn Arias MD Hematocrit (Bld) [Volume fraction] 30.0 % Low 40.7 - 50.3 % [facility] Hemoglobin (Bld) [Mass/Vol] 10.0 g/dL Low 13 - 17 g/dL [facility] MCH (RBC) [Entitic mass] 28.2 pg 25.2 - 33.5 pg [facility] MCHC (RBC) [Mass/Vol] 33.3 g/dL 28.4 - 34.8 g/dL [facility] MCV (RBC) [Entitic vol] 84.7 fL 82.6 - 102.9 fL [facility] NRBC Automated 0.0 0.0 per 100 WBC [facility] Platelet distribution width (Bld) [Ratio] 14.5 % High 11.8 - 14.4 % [facility] Platelet mean volume (Bld) [Entitic vol] 11.0 fL 8.1 - 13.5 fL [facility] Platelets (Bld) [#/Vol] 157 10*3/uL [facility] RBC (Bld) [#/Vol] 3.54 10*6/uL Low 4.21 - 5.77 m/uL [facility] WBC (Bld) [#/Vol] 16.8 10*3/uL High [facility] Calcium, Ionicon 01-01-2022 Calcium [Moles/Vol] 0.95 mmol/L Low 1.13-1.33 [facility] Comment on above: Performed By: #### U RNA, URTPRT, UMICAO, UEOS, UA #### [facility] [address] [place], [place] [phone] Refrigerator Crater: Ronn Arias MD Calcium, Ionizedon Calcium, Ionized 0.95 mmol/L Low 1.13 - 1.33 mmol/L [facility] Interpretation and review of laboratory results Abnormal [facility] Comp Metabolic Pr/rfx MGon 0 01-01-2022 Creatinine [Mass/Vol] 3.74 mg/dL High 0.70-1.20 [facility] Comment on above: Result Comment: ICTE JAYDON SPECIMEN Performed By: #### U RNA, URTPRT, UMICAO, UEOS, UA #### [facility] [address] [place], [place] [id number] Refrigerator Crater: Ronn Arias MD GFR, Amer 20 mL/min Low >60 [facility] Comment on above: Performed By: #### U RNA, URTPRT, UMICAO, UEOS, UA #### [facility] [address] [place] [address] [phone] Refrigerator Crater: Ronn Arias MD GFR,non Amer 16 mL/min Low >60 [facility] Comment on above: Performed By: #### U RNA, URTPRT, UMICAO, UEOS, UA #### [facility] [place] [address] Refrigerator Crater: Ronn Arias MD (cont.) [facility] Comment on above: Result Comment: Aver age GFR for 60-69 years old: 85 mL/min/1.73sq m Chronic Kidney Disease: <60 mL/min/1.73sq m Kidney failure: <15 mL/min/1.73sq m eGFR calculated using average adult body mass. Additional eGFR calculator available at: http://www.Publicfast.com/multiple_crcl_2012.htm Performed By: #### U RNA, URTPRT, UMICAO, UEOS, UA #### [facility] [place], [place] [phone] Refrigerator Crater: Ronn Arias MD Albumin [Mass/Vol] 3.2 g/dL Low 3.5-5.2 [facility] Comment on above: Performed By: #### U RNA, URTPRT, UMICAO, UEOS, UA #### [facility] [address] [place] [address] Refrigerator Crater: Ronn Arias MD Albumin/Glob Ratio 1.2 Normal 1.0-2.5 [facility] Comment on above: Performed By: #### U RNA, URTPRT, UMICAO, UEOS, UA #### [facility] [address] [place] [address] Refrigerator Crater: Ronn Arias MD Alkaline Phos 101 U/L Normal 40-129 [facility] Comment on above: Performed By: #### U RNA, URTPRT, UMICAO, UEOS, UA #### [address] [address] Refrigerator Crater: Ronn Arias MD ALT [Catalytic activity/Vol] 185 U/L High 5-41 [facility] Comment on above: Performed By: #### U RNA, URTPRT, UMICAO, UEOS, UA #### [facility] [address] [place] [address] Refrigerator Crater: Ronn Arias MD Anion gap [Moles/Vol] 12 mmol/L Normal 9-17 [facility] Comment on above: Performed By: #### U RNA, URTPRT, UMICAO, UEOS, UA #### [facility] [address] [place] [address] Refrigerator Crater: Ronn Arias MD AST [Catalytic activity/Vol] 103 U/L High <40 [facility] Comment on above: Performed By: #### U RNA, URTPRT, UMICAO, UEOS, UA #### [facility] [address] [place] [address] Refrigerator Crater: Ronn Arias MD Bilirubin [Mass/Vol] 4.3 mg/dL High 0.3-1.2 [facility] Comment on above: Performed By: #### U RNA, URTPRT, UMICAO, UEOS, UA #### [facility] [address] [place] [address] Refrigerator Crater: Ronn Arisa MD Calcium [Mass/Vol] 6.5 mg/dL Low 8.6-10.4 [facility] Comment on above: Performed By: #### U RNA, URTPRT, UMICAO, UEOS, UA #### [facility] [address] [place] [address] Refrigerator Crater: Ronn Arias MD Chloride [Moles/Vol] 107 mmol/L Normal 98-107 [facility] Comment on above: Performed By: #### U RNA, URTPRT, UMICAO, UEOS, UA #### [facility] [address] [place] [address] Refrigerator Crater: Ronn Arias MD CO2 [Moles/Vol] 19 mmol/L Low 20-31 [facility] Comment on above: Performed By: #### U RNA, URTPRT, UMICAO, UEOS, UA #### [facility] [address] [place] [address] Refrigerator Crater: Ronn Arias MD Glucose [Mass/Vol] 109 mg/dL High 70-99 [facility] Comment on above: Performed By: #### U RNA, URTPRT, UMICAO, UEOS, UA #### [facility] [address] [place] [address] Refrigerator Crater: Ronn Arias MD Potassium [Moles/Vol] 4.4 mmol/L Normal 3.7-5.3 [facility] Comment on above: Performed By: #### U RNA, URTPRT, UMICAO, UEOS, UA #### [facility] [address] [place] [address] Refrigerator Crater: Ronn Arias MD Protein [Mass/Vol] 5.8 g/dL Low 6.4-8.3 [facility] Comment on above: Performed By: #### U RNA, URTPRT, UMICAO, UEOS, UA #### [facility] [address] [place] [address] Refrigerator Crater: Ronn Arias MD Sodium [Moles/Vol] 138 mmol/L Normal 135-144 [facility] Comment on above: Performed By: #### U RNA, URTPRT, UMICAO, UEOS, UA #### [facility] [address] [place] [address] Refrigerator Crater: Ronn Arias MD Urea nitrogen [Mass/Vol] 59 mg/dL High 8-23 [facility] Comment on above: Performed By: #### U RNA, URTPRT, UMICAO, UEOS, UA #### [facility] [address] [place] [address] Refrigerator Crater: Ronn Arias MD Creatinine [Mass/Vol] 3.86 mg/dL High 0.70-1.20 [facility] Comment on above: Result Comment: ICTE JAYDON SPECIMEN Performed By: #### U RNA, URTPRT, UMICAO, UEOS, UA #### [facility] [address] [place] [address] Refrigerator Crater: Ronn Arias MD GFR, Amer 19 mL/min Low >60 [facility] Comment on above: Performed By: #### U RNA, URTPRT, UMICAO, UEOS, UA #### [facility] [address] [place] [address] [employer]riger[employer]: Ronn Arias MD GFR,non Amer 16 mL/min Low >60 [facility] Comment on above: Performed By: #### U RNA, URTPRT, UMICAO, UEOS, UA #### [facility] [address] [place] [address] Refrigerator Cr[employer]: Ronn Arias MD (cont.) [facility] Comment on above: Result Comment: Aver age GFR for 60-69 years old: 85 mL/min/1.73sq m Chronic Kidney Disease: <60 mL/min/1.73sq m Kidney failure: <15 mL/min/1.73sq m eGFR calculated using average adult body mass. Additional eGFR calculator available at: http://www.Adtuitive/multiple_crcl_2011.htm Performed By: #### U RNA, URTPRT, UMICAO, UEOS, UA #### [address] [address] Refrigerator Cr[employer]: Ronn Arias MD Albumin [Mass/Vol] 3.0 g/dL Low 3.5-5.2 [facility] Comment on above: Performed By: #### U RNA, URTPRT, UMICAO, UEOS, UA #### [address] [address] Refrigerator Crater: Ronn Arias MD Albumin/Glob Ratio 1.2 Normal 1.0-2.5 [facility] Comment on above: Performed By: #### U RNA, URTPRT, UMICAO, UEOS, UA #### [facility] [address] [place] [address] Refrigerator [employer]: Ronn Arias MD Alkaline Phos 98 U/L Normal 40-129 [facility] Comment on above: Performed By: #### U RNA, URTPRT, UMICAO, UEOS, UA #### [facility] [address] [place] [address] Refrigerator Crater: Ronn Arias MD ALT [Catalytic activity/Vol] 191 U/L High 5-41 [facility] Comment on above: Performed By: #### U RNA, URTPRT, UMICAO, UEOS, UA #### [facility] [address] [place] [address] Refrigerator Crater: Ronn Arias MD Anion gap [Moles/Vol] 13 mmol/L Normal 9-17 [facility] Comment on above: Performed By: #### U RNA, URTPRT, UMICAO, UEOS, UA #### [facility] [address] [place] [address] Refrigerator Crater: Ronn Arias MD AST [Catalytic activity/Vol] 112 U/L High <40 [facility] Comment on above: Performed By: #### U RNA, URTPRT, UMICAO, UEOS, UA #### [facility] [address] [place] [address] Refrigerator Crater: Ronn Arias MD Bilirubin [Mass/Vol] 4.5 mg/dL High 0.3-1.2 [facility] Comment on above: Performed By: #### U RNA, URTPRT, UMICAO, UEOS, UA #### [facility] [address] [place] [address] Refriger[employer] Cr[employer]: Ronn Arias MD Calcium [Mass/Vol] 6.5 mg/dL Low 8.6-10.4 [facility] Comment on above: Performed By: #### U RNA, URTPRT, UMICAO, UEOS, UA #### [facility] [address] [place] [address] Refrigerator Crater: Ronn Arias MD Chloride [Moles/Vol] 109 mmol/L High 98-107 [facility] Comment on above: Performed By: #### U RNA, URTPRT, UMICAO, UEOS, UA #### [facility] [address] [place] [address] Refrigerator Crater: Ronn Arias MD CO2 [Moles/Vol] 18 mmol/L Low 20-31 [facility] Comment on above: Performed By: #### U RNA, URTPRT, UMICAO, UEOS, UA #### [facility] [address] [place] [address] Refrigerator Crater: Ronn Arias MD Glucose [Mass/Vol] 106 mg/dL High 70-99 [facility] Comment on above: Performed By: #### U RNA, URTPRT, UMICAO, UEOS, UA #### [facility] [address] [place] [address] Refrigerator [employer]: Ronn Arias MD Potassium [Moles/Vol] 4.5 mmol/L Normal 3.7-5.3 [facility] Comment on above: Performed By: #### U RNA, URTPRT, UMICAO, UEOS, UA #### [facility] [address] [place] [address] Refrigerator Crater: Ronn Arias MD Protein [Mass/Vol] 5.5 g/dL Low 6.4-8.3 [facility] Comment on above: Performed By: #### U RNA, URTPRT, UMICAO, UEOS, UA #### [facility] [address] [place] [address] Refrigerator Cr[employer]: Ronn Arias MD Sodium [Moles/Vol] 140 mmol/L Normal 135-144 [facility] Comment on above: Performed By: #### U RNA, URTPRT, UMICAO, UEOS, UA #### [facility] [address] [place] [address] Refrigerator Cr[employer]: Ronn Arias MD Urea nitrogen [Mass/Vol] 59 mg/dL High 8-23 [facility] Comment on above: Performed By: #### U RNA, URTPRT, UMICAO, UEOS, UA #### [facility] [address] [phone] Refrigerator Crater: Ronn Arias MD Comprehensive Metabolic Pane l w/ Reflex to MGon 01-01-2022 Albumin [Mass/Vol] 3.2 g/dL Low 3.5 - 5.2 g/dL [employer] [facility] Interactive Albumin/Globulin [Mass ratio] 1.2 {ratio} 1 - 2.5 [facility] ALP (Bld) [Catalytic activity/Vol] 101 U/L 40 - 129 U/L [facility] Interactive ALT [Catalytic activity/Vol] 185 U/L High 5 - 41 U/L [employer] [facility] Interactive Anion gap [Moles/Vol] 12 mmol/L 9 - 17 mmol/L [employer] [facility] Interactive AST [Catalytic activity/Vol] 103 U/L High NINF - 40 U/L [employer] [facility] Interactive Bilirubin [Mass/Vol] 4.3 mg/dL High 0.3 - 1.2 mg/dL [employer] [facility] Interactive Calcium [Mass/Vol] 6.5 mg/dL Low 8.6 - 10. 4 mg/dL [employer] [facility] Chloride [Moles/Vol] 107 mmol/L 98 - 107 mmol/L [facility] CO2 [Moles/Vol] 19 mmol/L Low 20 - 31 mmol/L [facility] Creatinine [Mass/Vol] 3.74 mg/dL High 0.7 - 1.2 mg/dL [facility] Comment on above: ICTERIC SPECIMEN Free PSA/Total PSA [Mass fraction] 5.8 g/dL Low 6.4 - 8.3 g/dL [employer] GFR 20 mL/min Low 60 - PINF mL/min [employer] GFR Non- 16 mL/min Low 60 - PINF mL/min [employer] GFR/1.73 sq M.predicted MDRD (S/P/Bld) [Vol rate/Area] [facility] [facility] Comment on above: Average GFR for 60-6 9 years old: 85 mL/min/1.73sq m Chronic Kidney Disease: <60 mL/min/1.73sq m Kidney failure: <15 mL/min/1.73sq m eGFR calculated using average adult body mass. Additional eGFR calculator available at: http://www.Adtuitive/multiple_crcl_2012.htm Glucose [Mass/Vol] 109 mg/dL High 70 - 99 mg/dL [facility] Interpretation and review of laboratory results Abnormal [facility] Potassium [Moles/Vol] 4.4 mmol/L 3.7 - 5.3 mmol/L [facility] Sodium [Moles/Vol] 138 mmol/L 135 - 144 mmol/L [facility] Urea nitrogen (BldV) [Mass/Vol] 59 mg/dL High 8 - 23 mg/dL [facility] Albumin [Mass/Vol] 3 g/dL Low 3.5 - 5.2 g/dL [facility] Albumin/Globulin [Mass ratio] 1.2 {ratio} 1 - 2.5 [facility] ALP (Bld) [Catalytic activity/Vol] 98 U/L 40 - 129 U/L [facility] ALT [Catalytic activity/Vol] 191 U/L High 5 - 41 U/L [facility] Anion gap [Moles/Vol] 13 mmol/L 9 - 17 mmol/L [facility] AST [Catalytic activity/Vol] 112 U/L High NINF - 40 U/L [facility] Bilirubin [Mass/Vol] 4.5 mg/dL High 0.3 - 1.2 mg/dL [facility] Calcium [Mass/Vol] 6.5 mg/dL Low 8.6 - 10. 4 mg/dL [facility] Chloride [Moles/Vol] 109 mmol/L High 98 - 107 mmol/L [facility] CO2 [Moles/Vol] 18 mmol/L Low 20 - 31 mmol/L [facility] Creatinine [Mass/Vol] 3.86 mg/dL High 0.7 - 1.2 mg/dL [facility] Comment on above: I[employer]ER[employer] SPECIMEN Free PSA/Total PSA [Mass fraction] 5.5 g/dL Low 6.4 - 8.3 g/dL [facility] GFR 19 mL/min Low 60 - PINF mL/min [facility] GFR Non- 16 mL/min Low 60 - PINF mL/min [facility] GFR/1.73 sq M.predicted MDRD (S/P/Bld) [Vol rate/Area] [facility] Comment on above: Average GFR for 60-6 9 years old: 85 mL/min/1.73sq m Chronic Kidney Disease: <60 mL/min/1.73sq m Kidney failure: <15 mL/min/1.73sq m eGFR calculated using average adult body mass. Additional eGFR calculator available at: http://www.Adtuitive/multiple_crcl_2011.htm Glucose [Mass/Vol] 106 mg/dL High 70 - 99 mg/dL [facility] Potassium [Moles/Vol] 4.5 mmol/L 3.7 - 5.3 mmol/L [facility] Sodium [Moles/Vol] 140 mmol/L 135 - 144 mmol/L [facility] Urea nitrogen (BldV) [Mass/Vol] 59 mg/dL High 8 - 23 mg/dL [facility] Differentialon 01-01-2022 Abs. Basophil 0.03 k/uL Normal 0.00-0.20 [facility] Comment on above: Performed By: #### U RNA, URTPRT, UMICAO, UEOS, UA #### [facility] [address] [place], [place] [phone] Refrigerator Crater: Ronn Arias MD Abs.Imm.Granulocyte 0.10 k/uL Normal 0.00-0.30 [facility] Comment on above: Performed By: #### U RNA, URTPRT, UMICAO, UEOS, UA #### [facility] [address] [place], [place] [id number] Refrigerator Crater: Ronn Arias MD Abs.Neutrophil (Seg) 14.48 k/uL High 1.50-8.10 [facility] Comment on above: Performed By: #### U RNA, URTPRT, UMICAO, UEOS, UA #### [facility] [address] [place] [address] Refriger[employer] Crater: Ronn Arias MD Basophils/100 WBC (Bld) 0 % Normal 0-2 [facility] Comment on above: Performed By: #### U RNA, URTPRT, UMICAO, UEOS, UA #### [facility] [address] [place] [address] Refriger[employer]: Ronn Arias MD Eosinophils (Bld) [#/Vol] 0.06 10*3/uL Normal 0.00-0.44 [facility] Comment on above: Performed By: #### U RNA, URTPRT, UMICAO, UEOS, UA #### [address] [address] Refriger[employer]: Ronn Arias MD Eosinophils/100 WBC (Bld) 0 % Low 1-4 [facility] Comment on above: Performed By: #### U RNA, URTPRT, UMICAO, UEOS, UA #### [address] [address] Refriger[employer]: Ronn Arias MD Immature granulocytes/100 WBC (Bld) 1 % High 0 [facility] Comment on above: Performed By: #### U RNA, URTPRT, UMICAO, UEOS, UA #### [address] [address] Refrigerator Crater: Ronn Arias MD Lymphocytes (Bld) [#/Vol] 0.87 10*3/uL Low 1.10-3.70 [facility] Comment on above: Performed By: #### U RNA, URTPRT, UMICAO, UEOS, UA #### [facility] [address] [place] [address] Refriger[employer] Cr[employer]: Ronn Arias MD Lymphocytes/100 WBC (Bld) 5 % Low 24-43 [facility] Comment on above: Performed By: #### U RNA, URTPRT, UMICAO, UEOS, UA #### [facility] [address] [place] [address] Refrigerator Crater: Ronn Arias MD Monocytes (Bld) [#/Vol] 1.28 10*3/uL High 0.10-1.20 [facility] Comment on above: Performed By: #### U RNA, URTPRT, UMICAO, UEOS, UA #### [facility] [address] [place] [address] Refrigerator Cr[employer]: Ronn Arias MD Monocytes/100 WBC (Bld) 8 % Normal 3-12 [facility] Comment on above: Performed By: #### U RNA, URTPRT, UMICAO, UEOS, UA #### [facility] [address] [place] [address] Refrigerator Crater: Ronn Arias MD Neutrophil (Seg) 86 % High 36-65 [facility] Comment on above: Performed By: #### U RNA, URTPRT, UMICAO, UEOS, UA #### [facility] [address] [place] [address] Refrigerator Crater: Ronn Arias MD RBC morphology finding Nom (Bld) ANISOCYTOSIS PRESENT Normal [facility] Comment on above: Performed By: #### U RNA, URTPRT, UMICAO, UEOS, UA #### [facility] [address] [place] [address] Refrigerator Crater: Ronn Arias MD Absolute Eos # 0.06 [facility] Absolute Immature Granulocyte 0.10 [facility] Absolute Lymph # 0.87 Low [facility] Absolute [place] # 1.28 High [facility] Basophils (Bld) [#/Vol] 0.03 10*3/uL [facility] Basophils/100 WBC (Bld) 0 % 0 - 2 % [facility] Eosinophils/100 WBC (Bld) 0 % Low 1 - 4 % [facility] Immature granulocytes/100 WBC (Bld) 1 % High 0 [facility] Lymphocytes/100 WBC (Bld) 5 % Low 24 - 43 % [facility] Monocytes/100 WBC (Bld) 8 % 3 - 12 % [facility] RBC (Bld) [#/Vol] ANISOCYTOSIS PRESENT [facility] Segmented neutrophils/100 WBC (Bld) 86 % High 36 - 65 % [facility] Segs Absolute 14.48 High [facility] Hemoglobin A1Con 01-01-2022 Glucose [Mass/Vol] 117 mg/dL Normal [facility] Comment on above: Result Comment: The ADA and AACC recommend providing the estimated average glucose result to permit better patient understanding of their HBA1c result. Performed By: #### U RNA, URTPRT, UMICAO, UEOS, UA #### [facility] [address] [place], [place] [phone] Refrigerator Crater: Ronn Arias MD HbA1c (Bld) [Mass fraction] 5.7 % Normal 4.0-6.0 [facility] Comment on above: Performed By: #### U RNA, URTPRT, UMICAO, UEOS, UA #### [facility] [address] [place], [place] [phone] Refrigerator Crater: Ronn Arias MD Glucose [Mass/Vol] 117 mg/dL [facility] Comment on above: The ADA and AACC rec ommend providing the estimated average glucose result to permit better patient understanding of their HBA1c result. HbA1c (Bld) [Mass fraction] 5.7 % 4 - 6 % [facility] Hepatic Function Panelon Albumin [Mass/Vol] 3.2 g/dL Low 3.5 - 5.2 g/dL [facility] Albumin/Globulin [Mass ratio] 1.3 {ratio} 1 - 2.5 [facility] ALP (Bld) [Catalytic activity/Vol] 98 U/L 40 - 129 U/L [facility] ALT [Catalytic activity/Vol] 202 U/L High 5 - 41 U/L [facility] AST [Catalytic activity/Vol] 117 U/L High NINF - 40 U/L [facility] Bilirubin [Mass/Vol] 4.4 mg/dL High 0.3 - 1.2 mg/dL [facility] Bilirubin, Indirect 0.3 mg/dL 0 - 1 mg/dL [facility] Bilirubin.indirect [Mass/Vol] 4.1 mg/dL High NINF - 0.31 mg/dL [facility] Free PSA/Total PSA [Mass fraction] 5.6 g/dL Low 6.4 - 8.3 g/dL [facility] Interpretation and review of laboratory results Abnormal [facility] Lactate Dehydrogenaseon 12-21 LDH [Catalytic activity/Vol] 214 U/L Normal 135-225 [facility] Comment on above: Performed By: #### U RNA, URTPRT, UMICAO, UEOS, UA #### [facility] [address] [place] [address] Refr[employer]: Ronn Arias MD LD 214 U/L 135 - 225 U/L [facility] Lactate, Sepsison 01-01-2022 Lactic Acid,Sep Wbld 1.2 mmol/L Normal 0.5-1.9 [facility] Comment on above: Performed By: #### U RNA, URTPRT, UMICAO, UEOS, UA #### [facility] [address] [place] [address] Refrigerator Cr[employer]: Ronn Arias MD Lactic Acid, Sepsis, Whole Blood 1.2 mmol/L 0.5 - 1.9 mmol/L [facility] Lactic Acid,Sep Wbld 1.3 mmol/L Normal 0.5-1.9 [facility] Comment on above: Performed By: #### U RNA, URTPRT, UMICAO, UEOS, UA #### [facility] [address] [place], [place] [phone] Refrigerator Crater: Ronn Arias MD Lactic Acid, Sepsis, Whole Blood 1.3 mmol/L 0.5 - 1.9 mmol/L [facility] Lactic Acid,Sep Wbld 0.9 mmol/L Normal 0.5-1.9 [facility] Comment on above: Performed By: #### U RNA, URTPRT, UMICAO, UEOS, UA #### [facility] [address] [place] [address] Refrigerator Cr[employer]: Ronn Arias MD Lactic Acid, Sepsis, Whole Blood 0.9 mmol/L 0.5 - 1.9 mmol/L [facility] Lactic Acid,Sep Wbld 1.3 mmol/L Normal 0.5-1.9 [facility] Comment on above: Performed By: #### U RNA, URTPRT, UMICAO, UEOS, UA #### [facility] [address] [place] [address] Refrigerator [employer]: Ronn Arias MD Lactic Acid, Sepsis, Whole Blood 1.3 mmol/L 0.5 - 1.9 mmol/L [facility] Lipaseon 01-01-2022 Lipase [Catalytic activity/Vol] 1918 U/L High 13-60 [facility] Comment on above: Performed By: #### U RNA, URTPRT, UMICAO, UEOS, UA #### [facility] [address] [place] [address] Refriger[employer]: Ronn Arias MD Lipase [Catalytic activity/Vol] 1918 U/L High 13 - 60 U/L [facility] Lipid Panelon 01-01-2022 Cholesterol [Mass/Vol] 103 mg/dL NINF - 200 mg/dL [facility] Comment on above: Cholesterol Guidelines: <200 Desirable 200-240 Borderline >240 Undesirable Cholesterol in HDL [Mass/Vol] 46 mg/dL 40 - PINF mg/dL [facility] Comment on above: HDL Guidelines: <40 Undesirable 40-59 Borderline >59 Desirable Cholesterol in LDL [Mass/Vol] 46 mg/dL 0 - 130 mg/dL [facility] Comment on above: LDL Guidelines: <100 Desirable 100-129 Near to/above Desirable 130-159 Borderline >159 Undesirable Direct (measured) LDL and calculated LDL are not interchangeable tests. Cholesterol.total/C holesterol in HDL [Mass ratio] 2.2 {ratio} NINF - 5 [facility] Triglyceride [Mass/Vol] 53 mg/dL NINF - 150 mg/dL [facility] Comment on above: Triglyceride Guidelines: <150 Desirable 150-199 Borderline 200-499 High >499 Very high Based on AHA Guidelines for fasting triglyceride, January 2012. [facility] Lipid Profileon 01-01-2022 Cholesterol [Mass/Vol] 103 mg/dL Normal <200 [facility] Comment on above: Result Comment: Cholesterol Guidelines: <200 Desirable 200-240 Borderline >240 Undesirable Performed By: #### U RNA, URTPRT, UMICAO, UEOS, UA #### [facility] [address] [phone] [employer]: Ronn Arias MD Cholesterol in HDL [Mass/Vol] 46 mg/dL Normal >40 [facility] Comment on above: Result Comment: HDL Guidelines: <40 Undesirable 40-59 Borderline >59 Desirable Performed By: #### U RNA, URTPRT, UMICAO, UEOS, UA #### [facility] [address] [place], [place] 1927[address] Refr[employer]: Ronn Arias MD Cholesterol in LDL [Mass/Vol] 46 mg/dL Normal 0-130 [facility] Comment on above: Result Comment: LDL Guidelines: <100 Desirable 100-129 Near to/above Desirable 130-159 Borderline >159 Undesirable Direct (measured) LDL and calculated LDL are not interchangeable tests. Performed By: #### U RNA, URTPRT, UMICAO, UEOS, UA #### [facility] [place] [address] [employer]: Ronn Arias MD Cholesterol.total/C holesterol in HDL [Mass ratio] 2.2 {ratio} Normal <5 [facility] Comment on above: Performed By: #### U RNA, URTPRT, UMICAO, UEOS, UA #### [facility] [address] [place] [address] [employer]: Ronn Arias MD Triglyceride [Mass/Vol] 53 mg/dL Normal <150 [facility] Comment on above: Result Comment: Triglyceride Guidelines: <150 Desirable 150-199 Borderline 200-499 High >499 Very high Based on AHA Guidelines for fasting triglyceride, January 2012. Performed By: #### U RNA, URTPRT, UMICAO, UEOS, UA #### [facility] [address] [place] [address] [employer]: Ronn Arias MD Liver Profileon 01-01-2022 Albumin [Mass/Vol] 3.2 g/dL Low 3.5-5.2 [facility] Comment on above: Performed By: #### U RNA, URTPRT, UMICAO, UEOS, UA #### [facility] [address] [place] [address] [employer]: Ronn Arias MD Albumin/Glob Ratio 1.3 Normal 1.0-2.5 [facility] Comment on above: Performed By: #### U RNA, URTPRT, UMICAO, UEOS, UA #### [facility] [place] [address] [employer]: Ronn Arias MD Alkaline Phos 98 U/L Normal 40-129 [facility] Comment on above: Performed By: #### U RNA, URTPRT, UMICAO, UEOS, UA #### [facility] [address] [place] [id number] [employer]: Ronn Arias MD ALT [Catalytic activity/Vol] 202 U/L High 5-41 [facility] Comment on above: Performed By: #### U RNA, URTPRT, UMICAO, UEOS, UA #### [facility] [address] [place] [address] [employer]: Ronn Arias MD AST [Catalytic activity/Vol] 117 U/L High <40 [facility] Comment on above: Performed By: #### U RNA, URTPRT, UMICAO, UEOS, UA #### [facility] [address] [place] [address] [employer]: Ronn Arias MD Bilirubin [Mass/Vol] 4.4 mg/dL High 0.3-1.2 [facility] Comment on above: Performed By: #### U RNA, URTPRT, UMICAO, UEOS, UA #### [facility] [address] [place] [address] [employer]: Ronn Arias MD Bilirubin, Indirect 0.3 mg/dL Normal 0.00-1.00 [facility] Comment on above: Performed By: #### U RNA, URTPRT, UMICAO, UEOS, UA #### [facility] [address] [place] [address] Ref[employer]: Ronn Arias MD Bilirubin.indirect [Mass/Vol] 4.1 mg/dL High <0.31 [facility] Comment on above: Performed By: #### U RNA, URTPRT, UMICAO, UEOS, UA #### [facility] [place] [address] [employer]: Ronn Arias MD Protein [Mass/Vol] 5.6 g/dL Low 6.4-8.3 [facility] Comment on above: Performed By: #### U RNA, URTPRT, UMICAO, UEOS, UA #### [facility] [address] [place] [address] [employer]: Ronn Arias MD MRI ABDOMEN WO CONTRAST [...] Aliya Salgado MD 01/01/22 Final result Normal [facility] 1. Christen pancreatic inflammation suggestive of acute [...] findings do not require dedicated imaging follow-up. [facility] RIS CONSOLIDATED Aliya Salgado MD - 01/01/2022 EXAMINATION: MRI OF THE [...] for acute cholecystitis, biliary dilatation or choledocholithiasis. [email or web address] Phone: Radiology Study observation (narrative) [email or web address] Phone: MRI ABDOMEN WO CONTRAST MRCP Ordered By: Aliya Salgado on 01-01-2022 [email or web address] Phone: Magnesiumon 01-01-2022 Magnesium [Mass/Vol] 1.7 mg/dL Normal 1.6-2.6 [facility] Comment on above: Performed By: #### U RNA, URTPRT, UMICAO, UEOS, UA #### [facility] [address] [place] [address] [employer]: Ronn Arias MD Magnesium [Mass/Vol] 1.7 mg/dL 1.6 - 2.6 mg/dL [facility] [employer] Magnesium [Mass/Vol] 1.7 mg/dL Normal 1.6-2.6 [facility] Comment on above: Performed By: #### U RNA, URTPRT, UMICAO, UEOS, UA #### [facility] [address] [place], [place] [phone] [employer]: Ronn Arias MD Magnesium [Mass/Vol] 1.7 mg/dL 1.6 - 2.6 mg/dL [facility] No Panel Informationon 01-01 Interpretation and review of laboratory results Abnormal [facility] Interpretation and review of laboratory results Abnormal [facility] PTon 01-01-2022 INR Coag (PPP) [Relative time] 1.2 {INR} Normal [facility] Comment on above: Result Comment: Therapeutic Range: Moderate Anticoagulant Intensity: INR = 2.0-3.0 High Anticoagulant Intensity: INR = 2.5-3.5 Performed By: #### U RNA, URTPRT, UMICAO, UEOS, UA #### [facility] [address] [place] [address] [employer]: Ronn Arias MD PT Coag (PPP) [Time] 12.7 s High 9.1-12.3 [facility] Comment on above: Performed By: #### U RNA, URTPRT, UMICAO, UEOS, UA #### [facility] [address] [place], [place] [phone] [employer]: Ronn Arias MD Phosphoruson 01-01-2022 Phosphate [Mass/Vol] 3.0 mg/dL 2.5 - 4.5 mg/dL [facility] Phosphorus, Inorg.on 022 Phosphorus, Inorg. 3.0 mg/dL Normal 2.5-4.5 [facility] Comment on above: Performed By: #### U RNA, URTPRT, UMICAO, UEOS, UA #### [facility] [address] [place] [address] Refrigerator Crater: Ronn Arias MD Procalcitoninon 01-01-2022 Procalcitonin 67.66 ng/mL High <0.09 [facility] Comment on above: Result Comment: Suspected Sepsis: [...] entered into the Change in Procalcitonin Calculator (Swink.tv.roauuc-zgu-urjjkzvikwUndo Software) to determine the patient's Mortality Risk Prognosis In healthy neonates, plasma Procalcitonin (PCT) concentrations increase gradually after , reaching peak values at about 24 hours of age then decrease to normal values below 0.5 ng/mL by 48-72 hours of age. Performed By: #### U RNA, URTPRT, UMICAO, UEOS, UA #### [facility] [place] [address] Refrigerator Crater: Ronn Arias MD Interpretation and review of laboratory results Abnormal [facility] Procalcitonin 67.66 ng/mL High NINF - 0.09 ng/mL [facility] Comment on above: Suspected Sepsis: <0.50 ng/mL [...] entered into the Change in Procalcitonin Calculator (wwwFestEvoznbmnv-zbh-fsttohdqes.Populy Games) to determine the patient's Mortality Risk Prognosis In healthy neonates, plasma Procalcitonin (PCT) concentrations increase gradually after , reaching peak values at about 24 hours of age then decrease to normal values below 0.5 ng/mL by 48-72 hours of age. Protein, urine, randomon Protein (U) [Mass/Vol] 59 mg/dL [facility] Comment on above: No normal range esta blished. [facility] Protime-INRon 01-01-2022 INR Coag (Bld) [Relative time] 1.2 {INR} [facility] Comment on above: Therapeutic Range: Moderate Anticoagulant Intensity: INR = 2.0-3.0 High Anticoagulant Intensity: INR = 2.5-3.5 Interpretation and review of laboratory results Abnormal [facility] PT Coag (PPP) [Time] 12.7 s High [facility] Sodium, Random Uron 01-02-20 Sodium (U) [Moles/Vol] 37 mmol/L Normal [facility] Comment on above: Result Comment: No n ormal range established. Performed By: #### U RNA, URTPRT, UMICAO, UEOS, UA #### [facility] [address] [id number] Refrigerator Crater: Ronn Arias MD Sodium, urine, randomon 12-21 Sodium (U) [Moles/Vol] 37 mmol/L [facility] Comment on above: No normal range esta blished. [facility] Triglycerideon 01-01-2022 Triglyceride [Mass/Vol] 58 mg/dL NINF - 150 mg/dL [facility] Comment on above: Triglyceride Guidelines: <150 Desirable 150-199 Borderline 200-499 High >499 Very high Based on AHA Guidelines for fasting triglyceride, January 2012. Triglycerideson 01-01-2022 Triglyceride [Mass/Vol] 58 mg/dL Normal <150 [facility] Comment on above: Result Comment: Triglyceride Guidelines: <150 Desirable 150-199 Borderline 200-499 High >499 Very high Based on AHA Guidelines for fasting triglyceride, January 2012. Performed By: #### U RNA, URTPRT, UMICAO, UEOS, UA #### [facility] [address] [place], [place] [id number] Refrigerator Crater: Ronn Arias MD Troponinon 01-01-2022 Troponin, High Sens 19 ng/L Normal 0-22 [facility] Comment on above: Result Comment: High Sensitivity Troponin values cannot be compared with other Troponin methodologies. Patients with high levels of Biotin oral intake (i.e >5mg/day) may have falsely decreased Troponin levels. Samples collected within 8 hours of biotin intake may require additional information for diagnosis. Performed By: #### U RNA, URTPRT, UMICAO, UEOS, UA #### [facility] [address] [place], [place] [id number] Refrigerator Crater: Ronn Arias MD Troponin, High Sensitivity 19 ng/L 0 - 22 ng/L [facility] Comment on above: High Sensitivity Troponin values cannot be compared with other Troponin methodologies. Patients with high levels of Biotin oral intake (i.e >5mg/day) may have falsely decreased Troponin levels. Samples collected within 8 hours of biotin intake may require additional information for diagnosis. [facility] [employer] Troponin, High Sens 17 ng/L Normal 0-22 [facility] Comment on above: Result Comment: High Sensitivity Troponin values cannot be compared with other Troponin methodologies. Patients with high levels of Biotin oral intake (i.e >5mg/day) may have falsely decreased Troponin levels. Samples collected within 8 hours of biotin intake may require additional information for diagnosis. Performed By: #### U RNA, URTPRT, UMICAO, UEOS, UA #### [facility] [address] [place], [place] [id number] Refrigerator Crater: Ronn Arias MD Troponin, High Sensitivity 17 ng/L 0 - 22 ng/L [employer] Comment on above: High Sensitivity Troponin values cannot be compared with other Troponin methodologies. Patients with high levels of Biotin oral intake (i.e >5mg/day) may have falsely decreased Troponin levels. Samples collected within 8 hours of biotin intake may require additional information for diagnosis. [employer] Troponin, High Sens 18 ng/L Normal 0-22 [facility] Comment on above: Result Comment: High Sensitivity Troponin values cannot be compared with other Troponin methodologies. Patients with high levels of Biotin oral intake (i.e >5mg/day) may have falsely decreased Troponin levels. Samples collected within 8 hours of biotin intake may require additional information for diagnosis. Performed By: #### U RNA, URTPRT, UMICAO, UEOS, UA #### [facility] [address] [place] [address] Refrigerator Crater: Ronn Arias MD Troponin, High Sens 18 ng/L Normal 0-22 [facility] Comment on above: Result Comment: High Sensitivity Troponin values cannot be compared with other Troponin methodologies. Patients with high levels of Biotin oral intake (i.e >5mg/day) may have falsely decreased Troponin levels. Samples collected within 8 hours of biotin intake may require additional information for diagnosis. Performed By: #### U RNA, URTPRT, UMICAO, UEOS, UA #### [facility] [address] [place], [place] [id number] Refrigerator Crater: Ronn Arias MD Troponin, High Sensitivity 18 ng/L 0 - 22 ng/L [facility] Comment on above: High Sensitivity Troponin values cannot be compared with other Troponin methodologies. Patients with high levels of Biotin oral intake (i.e >5mg/day) may have falsely decreased Troponin levels. Samples collected within 8 hours of biotin intake may require additional information for diagnosis. [facility] Troponin, High Sensitivity 18 ng/L 0 - 22 ng/L [facility] Comment on above: High Sensitivity Troponin values cannot be compared with other Troponin methodologies. Patients with high levels of Biotin oral intake (i.e >5mg/day) may have falsely decreased Troponin levels. Samples collected within 8 hours of biotin intake may require additional information for diagnosis. Troponin, High Sens 18 ng/L Normal 0-22 [facility] Comment on above: Result Comment: High Sensitivity Troponin values cannot be compared with other Troponin methodologies. Patients with high levels of Biotin oral intake (i.e >5mg/day) may have falsely decreased Troponin levels. Samples collected within 8 hours of biotin intake may require additional information for diagnosis. Performed By: #### U RNA, URTPRT, UMICAO, UEOS, UA #### [facility] [address] [place], [place] [id number] Refrigerator Crater: Ronn Arias MD Troponin, High Sens 17 ng/L Normal 0-22 [facility] Comment on above: Result Comment: High Sensitivity Troponin values cannot be compared with other Troponin methodologies. Patients with high levels of Biotin oral intake (i.e >5mg/day) may have falsely decreased Troponin levels. Samples collected within 8 hours of biotin intake may require additional information for diagnosis. Performed By: #### U RNA, URTPRT, UMICAO, UEOS, UA #### [facility] [address] [place], [place] [id number] Refrigerator Crater: Ronn Arias MD Troponin, High Sensitivity 18 ng/L 0 - 22 ng/L [facility] Interactive Comment on above: High Sensitivity Troponin values cannot be compared with other Troponin methodologies. Patients with high levels of Biotin oral intake (i.e >5mg/day) may have falsely decreased Troponin levels. Samples collected within 8 hours of biotin intake may require additional information for diagnosis. [facility] [employer] Troponin, High Sens 15 ng/L Normal 0-22 [facility] Comment on above: Result Comment: High Sensitivity Troponin values cannot be compared with other Troponin methodologies. Patients with high levels of Biotin oral intake (i.e >5mg/day) may have falsely decreased Troponin levels. Samples collected within 8 hours of biotin intake may require additional information for diagnosis. Performed By: #### U RNA, URTPRT, UMICAO, UEOS, UA #### [facility] [address] [place], [place] [id number] Refrigerator Crater: Ronn Arias MD Troponin, High Sensitivity 17 ng/L 0 - 22 ng/L [facility] Comment on above: High Sensitivity Troponin values cannot be compared with other Troponin methodologies. Patients with high levels of Biotin oral intake (i.e >5mg/day) may have falsely decreased Troponin levels. Samples collected within 8 hours of biotin intake may require additional information for diagnosis. [facility] Troponin, High Sensitivity 15 ng/L 0 - 22 ng/L [facility] Comment on above: High Sensitivity Troponin values cannot be compared with other Troponin methodologies. Patients with high levels of Biotin oral intake (i.e >5mg/day) may have falsely decreased Troponin levels. Samples collected within 8 hours of biotin intake may require additional information for diagnosis. [facility] UA w/Reflex Cultureon 2021 Bilirubin, SemiQt,Ur MOD Abnormal NEG [facility] Comment on above: Performed By: #### U RNA, URTPRT, UMICAO, UEOS, UA #### [facility] [address] [place] [address] Refrigerator Crater: Ronn Arias MD Blood, Urine SMALL Abnormal NEG [facility] Comment on above: Performed By: #### U RNA, URTPRT, UMICAO, UEOS, UA #### [facility] [address] [place] [address] Refrigerator Crater: Ronn Arias MD Clarity (U) Turbid Abnormal CLEAR [facility] Comment on above: Performed By: #### U RNA, URTPRT, UMICAO, UEOS, UA #### [facility] [address] [place] [address] Refrigerator Crater: Ronn Arias MD Color (U) Dark Yellow Abnormal YEL [facility] Comment on above: Performed By: #### U RNA, URTPRT, UMICAO, UEOS, UA #### [facility] [address] [place] [address] Refrigerator Crater: Ronn Arias MD Glucose Ql (U) Negative Normal NEG [facility] Comment on above: Performed By: #### U RNA, URTPRT, UMICAO, UEOS, UA #### [facility] [address] [place] [address] Refrigerator Crater: Ronn Arias MD Ketones Ql (U) Negative Normal NEG [facility] Comment on above: Performed By: #### U RNA, URTPRT, UMICAO, UEOS, UA #### [facility] [address] [place] [address] Refrigerator Crater: Ronn Arias MD Leukocyte esterase Test strip Ql (U) Negative Normal NEG [facility] Comment on above: Performed By: #### U RNA, URTPRT, UMICAO, UEOS, UA #### [facility] [address] [place] [address] Refrigerator Crater: Ronn Arias MD Nitrite,Ur Negative Normal NEG [facility] Comment on above: Performed By: #### U RNA, URTPRT, UMICAO, UEOS, UA #### [facility] [address] [place] [address] Refrigerator Crater: Ronn Arias MD PH,Ur 5.0 Normal 5.0-8.0 [facility] Comment on above: Performed By: #### U RNA, URTPRT, UMICAO, UEOS, UA #### [facility] [address] [place] [address] Refrigerator Crater: Ronn Arias MD Protein Ql (U) 1+ Abnormal NEG [facility] Comment on above: Performed By: #### U RNA, URTPRT, UMICAO, UEOS, UA #### [facility] [address] [place] [address] Refrigerator Crater: Ronn Arias MD Spec. [place],Ur 1.013 Normal 1.005-1.03 0 [facility] Comment on above: Performed By: #### U RNA, URTPRT, UMICAO, UEOS, UA #### [facility] [address] [place] [address] Refrigerator Crater: Ronn Arias MD Urobilinogen,Ur Normal Normal NORM [facility] Comment on above: Performed By: #### U RNA, URTPRT, UMICAO, UEOS, UA #### [facility] [address] [place] [address] Refrigerator Crater: Ronn Arias MD Urinalysis with Reflex to Cu ltureon 01-01-2022 Bilirubin Urine MOD Abnormal NEGATIVE [facility] Color, UA Dark Yellow Abnormal Yellow [facility] Glucose, Ur Negative NEGATIVE [facility] Interpretation and review of laboratory results Abnormal [facility] Ketones Ql (U) Negative NEGATIVE [facility] Leukocyte esterase Test strip Ql (U) Negative NEGATIVE [facility] Nitrite, Urine Negative NEGATIVE [facility] pH, UA 5.0 5 - 8 [facility] Protein, UA 1+ Abnormal NEGATIVE [facility] Specific [place], UA 1.013 1.005 - 1.03 [facility] Turbidity UA Turbid Abnormal Clear [facility] Urine Hgb SMALL Abnormal NEGATIVE [facility] Urobilinogen, Urine Normal Normal [facility] Urinalysis, Microon 01-02-20 22 Casts UA 20 TO 50 [facility] Casts UA COARSELY GRANULAR [facility] Epithelial Cells UA 5 TO 10 [facility] RBC, UA 10 TO 20 [facility] WBC, UA 10 TO 20 [facility] Urinalysis,Microon 2 Casts 20 TO 50 Normal 0-2 [facility] Comment on above: Result Comment: COAR ASHLEY GRANULAR Performed By: #### U RNA, URTPRT, UMICAO, UEOS, UA #### [facility] [address] [place] [address] Refrigerator Crater: Ronn Arias MD Epithelial cells LM Ql (Urine sed) 5 TO 10 Normal 0-5 [facility] Comment on above: Performed By: #### U RNA, URTPRT, UMICAO, UEOS, UA #### [facility] [address] [place], [place] [id number] Refrigerator Crater: Ronn Arias MD Urine RBC's 10 TO 20 Normal 0-2 [facility] Comment on above: Performed By: #### U RNA, URTPRT, UMICAO, UEOS, UA #### [facility] [address] [place], [place] [phone] Refrigerator Crater: Ronn Arias MD Urine WBC's 10 TO 20 Normal 0-5 [facility] Comment on above: Performed By: #### U RNA, URTPRT, UMICAO, UEOS, UA #### [facility] [address] [place], [place] 0596[address] Refrigerator Crater: Ronn Arias MD CBC AUTO DIFFon 12-31-2021 BASO # 0.1 103/ul Normal 0.0-0.1 [facility] Comment on above: Performed By: #### H STROPN #### [facility] [address] [address] [address] Kulwant Brennan Basophils/100 WBC (Bld) 0.2 % Normal 0.2-2.0 [facility] Comment on above: Performed By: #### H STROPN #### [facility] [address] [address] [address] Kulwant Brennan EO # 0.0 103/ul Normal 0.0-0.7 [facility] Comment on above: Performed By: #### H STROPN #### [facility] [address] [address] [address] Kulwant Brennan Eosinophils/100 WBC (Bld) 0.0 % Critically low 0.9-7.0 [facility] Comment on above: Performed By: #### H STROPN #### [facility] [address] [address] [address] Kulwant Brennan Erythrocyte distribution width (RBC) [Ratio] 14.4 % Normal 11.0-15.0 [facility] Comment on above: Performed By: #### H STROPN #### [facility] [address] [address] [address] Kulwant Brennan Hematocrit (Bld) [Volume fraction] 37.9 % Critically low 42.0-54.0 [facility] Comment on above: Performed By: #### H STROPN #### [facility] [address] [place] [address] Dr. Kulwant Brennan Hemoglobin (Bld) [Mass/Vol] 12.2 g/dL Critically low 14.0-18.0 [facility] Comment on above: Performed By: #### H STROPN #### [facility] [address] [place] [address] Dr. Kulwant Brennan IG # 0.16 10e3/ul Critically high 0.00-0.03 [facility] Comment on above: Performed By: #### H STROPN #### [facility] [address] [place] [address] Dr. Kulwant Brennan IG % 0.6 % Critically high 0.0-0.5 [facility] Comment on above: Performed By: #### H STROPN #### [facility] [address] [place] [address] Dr. Kulwant Brennan LYMPH # 0.7 103/ul Critically low 1.2-3.8 [facility] Comment on above: Performed By: #### H STROPN #### [facility] [address] [place] [address] Dr. Kulwant Brennan Lymphocytes/100 WBC (Bld) 2.9 % Critically low 20.5-60.0 [facility] Comment on above: Performed By: #### H STROPN #### [facility] [address] [place] [address] Dr. Kulwant Brennan MANUAL DIFF REQ NO Normal [facility] Comment on above: Performed By: #### H STROPN #### [facility] [address] [place] [address] Dr. Kulwant Brennan MCH (RBC) [Entitic mass] 27.7 pg Normal 25.9-34.0 [facility] Comment on above: Performed By: #### H STROPN #### [facility] [address] [address] [address] Kulwant Brennan MCHC (RBC) [Mass/Vol] 32.2 g/dL Normal 29.9-35.2 [facility] Comment on above: Performed By: #### H STROPN #### [facility] [address] [place] [address] Dr. Kulwant Brennan MCV (RBC) [Entitic vol] 86.1 fL Normal 80.0-94.0 [facility] Comment on above: Performed By: #### H STROPN #### [facility] [address] [place] [address] Dr. Kulwant rBennan MONO # 1.6 103/ul Critically high 0.3-0.8 [facility] Comment on above: Performed By: #### H STROPN #### [facility] [address] [place] [address] Dr. Kulwant Brennan Monocytes/100 WBC (Bld) 6.4 % Normal 1.7-12.0 [facility] Comment on above: Performed By: #### H STROPN #### [facility] [address] [place] [address] Dr. Kulwant Brennan NEUT # 22.8 103/ul Critically high 1.4-6.[address] [facility] Comment on above: Performed By: #### H STROPN #### [facility] [address] [place] [address] Dr. Kulwant Brennan Neutrophils/100 WBC (Bld) 89.9 % Critically high 43.0-75.0 [facility] Comment on above: Performed By: #### H STROPN #### [facility] [address] [place] [address] Dr. Kulwant Brennan Platelet mean volume (Bld) [Entitic vol] 10.0 fL Normal 9.5-13.5 [facility] Comment on above: Performed By: #### H STROPN #### [facility] [address] [place] [address] Dr. Kulwant Brennan PLT 211 103/ul Normal 150-450 [facility] Comment on above: Performed By: #### H STROPN #### [facility] [address] [address] [address] Kulwant Brennan RBC 4.40 106/ul Critically low 4.70-6.[address] [facility] Comment on above: Performed By: #### H STROPN #### [facility] [address] [address] [address] Kulwant Brennan WBC 25.3 103/ul Critically high 4.0-11.0 [facility] Comment on above: Performed By: #### H STROPN #### [facility] [address] [address] [address] Kulwant Brennan CULTURE BLOODon 12-31-2021 Microscopic examination of blood, culture Culture Observations: NO GROWTH AT 5 DAYS. Normal [facility] Comment on above: Performed By: #### B LDCX2 ####[facility] [address] [address]Dr. Kulwant Brennan Performed By: #### B LDCX1 ####[facility] [address] [id number] Brennan CULTURE URINEon 12-31-2021 CULTURE URINE Culture Observations : MODERATE GROWTH OF MIXED SKIN MITA. NO POTENTIAL PATHOGENS SEEN. Normal [facility] Comment on above: Performed By: #### U RCX ####[facility] [address] [address]Dr. Kulwant Brennan [facility]on 12-21 SARS-CoV-2 (COVID-19) RNA MIKE+probe Ql (Unsp spec) Not detected Normal NOT DETECTED [facility] Comment on above: Result Comment: When [...] for this test is supported by the [place] of Health and Human Service's declaration that [...] longer be used). Performed By: #### [facility] ####[facility] [address] [place], [place] [address]Dr. Kulwant Brennan ER URINE PROFILEon 2 Bilirubin Ql (U) MODERATE Abnormal NEGATIVE [facility] Comment on above: Performed By: #### ANA LAURA VARELA ####[facility] [address] [place], [place] [address]Dr. Kulwant Brennan Clarity (U) CLEAR Normal CLEAR [facility] Comment on above: Performed By: #### ANA LAURA VARELA ####[facility] [address] [place], [place] [address]Dr. Kulwant Brennan Color (U) DK. ORANGE Abnormal YELLOW [facility] Comment on above: Performed By: #### ANA LAURA VARELA ####[facility] [address] [place], [place] [address]Dr. Kulwant Brennan ERUAHD A micrscopic examina tion will be performed if indicated. Normal [facility] Comment on above: Performed By: #### ANA LAURA VARELA ####[facility] [address] [place], [place] [address]Dr. Kulwant Brennan Glucose Ql (U) Negative Normal NEGATIVE [facility] Comment on above: Performed By: #### MICHELLE VARELARO ####[facility] [address] [place], [place] [address]Dr. Kulwant Brennan Hemoglobin Ql (U) SMALL Abnormal NEGATIVE [facility] Comment on above: Performed By: #### MICHELLE VARELARO ####[facility] [address] [place], [place] [address]Dr. Kulwant Brennan Ketones Ql (U) Negative Normal NEGATIVE [facility] Comment on above: Performed By: #### SERGEY VARELAICRO ####[facility] [address] [address]Dr. Kulwant Brennan LEUKOCYTES Negative Normal NEGATIVE [facility] Comment on above: Performed By: #### Lilly JHAVERI UMICRO ####[facility] [address] [address]Dr. Kulwant Brennan Nitrite Ql (U) Positive Abnormal NEGATIVE [facility] Comment on above: Performed By: #### SERGEY VARELAICRO ####[facility] [address] [address]Dr. Kulwant Brennan pH (U) 5.5 [pH] Normal 5-9 [facility] Comment on above: Performed By: #### SERGEY VARELAICRO ####[facility] [address] [place], [place] [address]Dr. Kulwant Brennan Protein (U) [Mass/Vol] 100 mg/dL Abnormal NEGATIVE/ TRACE [facility] Comment on above: Performed By: #### Lilly JHAVERI UMICRO ####[facility] [address] [place], [place] [address]Dr. Kulwant Brennan SPEC GRAVITY 1.020 Normal 1.005-<=1. 025 [facility] Comment on above: Performed By: #### Lilly JHAVERI UMICRO ####[facility] [address] [place], [place] [address]Dr. Kulwant Brennan UR MICRO IND INDICATED Normal [facility] Comment on above: Performed By: #### SERGEY VARELAICRO ####[facility] [address] [place], [place] [address]Dr. Kulwant Brennan Urobilinogen Qn (U) 1.0 {Luis'U}/dL Normal 0.2 - 1. 0 [facility] Comment on above: Performed By: #### Lilly JHAVERI UMICRO ####[facility] [id number] [place], [place] [address]Dr. Kulwant Brennan LACTATE/LACTIC ACIDon 2021 Lactate [Moles/Vol] 1.6 mmol/L Normal 0.4-1.9 [facility] Comment on above: Performed By: #### L ACT #### [facility] [address] [address] [address] Kulwant Brennan Lactate [Moles/Vol] 2.4 mmol/L Critically high 0.4-1.9 [facility] Comment on above: Performed By: #### L ACT ####[facility] [address] [address]Dr. Kulwant Brennan LIPASEon 12-31-2021 Lipase [Catalytic activity/Vol] 6610.0 U/L Critically high 73.0-393.0 [facility] Comment on above: Performed By: #### L ACT #### [facility] [address] [address] [address] Kulwant Brennan PROF 14(COMP METB)on 022 Albumin [Mass/Vol] 3.3 g/dL Critically low 3.4-5.0 [facility] Comment on above: Performed By: #### L ACT #### [facility] [address] [address] [address] Kulwant Brennan Albumin/Globulin [Mass ratio] 0.9 {ratio} Normal [facility] Comment on above: Performed By: #### L ACT #### [facility] [address] [place] [address] Dr. Kulwant Brennan ALP [Catalytic activity/Vol] 124 U/L Critically high 46-116 [facility] Comment on above: Performed By: #### L ACT #### [facility] [address] [address] [address] Kulwant Brennan ALT [Catalytic activity/Vol] 327 U/L Critically high 16-63 [facility] Comment on above: Performed By: #### L ACT #### [facility] [address] [address] [address] Kulwant Brennan Anion gap [Moles/Vol] 15.6 mmol/L Normal [facility] Comment on above: Performed By: #### L ACT #### [facility] [address] [address] [address] Kulwant Brennan AST [Catalytic activity/Vol] 229 U/L Critically high 15-37 [facility] Comment on above: Performed By: #### L ACT #### [facility] [address] [address] [address] Kulwant Brennan Bilirubin [Mass/Vol] 6.2 mg/dL Critically high 0.2-1.0 [facility] Comment on above: Performed By: #### L ACT #### [facility] [address] [address] [address] Kulwant Brennan Calcium [Mass/Vol] 7.2 mg/dL Critically low 8.5-10.1 [facility] Comment on above: Performed By: #### L ACT #### [facility] [address] [address] [address] Kulwant Brennan Chloride [Moles/Vol] 102 mmol/L Normal 98-107 [facility] Comment on above: Performed By: #### L ACT #### [facility] [address] [address] [address] Kulwant Brennan CO2 [Moles/Vol] 26.4 mmol/L Normal 21.0-32.0 [facility] Comment on above: Performed By: #### L ACT #### [facility] [address] [address] [address] Kulwant Brennan Creatinine [Mass/Vol] 3.33 mg/dL Critically high 0.70-1.30 [facility] Comment on above: Performed By: #### L ACT #### [facility] [address] [address] [address] Kulwant Brennan EGFR-AF MONTSERRATIAN 22 mL/min/1.73m2 Critically low >=60 [facility] Comment on above: Performed By: #### L ACT #### [facility] [address] [address] [address] Kulwant Brennan EGFR-NON AF MONTSERRATIAN 19 mL/min/1.73m2 Critically low >=60 [facility] Comment on above: Performed By: #### L ACT #### [facility] [address] [address] [address] Kulwant Brennan Globulin (S) [Mass/Vol] 3.8 g/dL Normal [facility] Comment on above: Performed By: #### L ACT #### [facility] [address] [address] [address] Kulwant Brennan Glucose [Mass/Vol] 245 mg/dL Critically high 74-106 [facility] Comment on above: Performed By: #### L ACT #### [facility] [address] [address] [address] Kulwant Brennan Potassium [Moles/Vol] 5.0 mmol/L Normal 3.5-5.1 [facility] Comment on above: Performed By: #### L ACT #### [facility] [address] [place] [address] Dr. Kulwant Brennan Protein [Mass/Vol] 7.1 g/dL Normal 6.4-8.2 [facility] Comment on above: Performed By: #### L ACT #### [facility] [address] [place] [address] Dr. Kulwant Brennan Sodium [Moles/Vol] 139 mmol/L Normal 136-145 [facility] Comment on above: Performed By: #### L ACT #### [facility] [address] [place] [address] Dr. Kulwant Brennan Urea nitrogen [Mass/Vol] 51.0 mg/dL Critically high 7.0-18.0 [facility] Comment on above: Performed By: #### L ACT #### [facility] [address] [place] [address] Dr. Kulwant Brennan Urea nitrogen/Creatinine [Mass ratio] 15.3 mg/mg Normal [facility] Comment on above: Performed By: #### L ACT #### [facility] [address] [address] [address] Kulwant Brennan PROTIMEon 12-31-2021 INR Coag (PPP) [Relative time] 1.17 {INR} Normal [facility] Comment on above: Performed By: #### H STROPN #### [facility] [address] [address] [address] Kulwant Brennan INR GUIDELINES SEE BELOW Normal [facility] Comment on above: Result Comment: HAYDEE RED INR: 2.0 - 3.0 CONDITIONS NOT LISTED BELOW 2.5 - 3.5 FOR PROSTHETIC HEART VALVE REPLACEMENT 2.5 - 3.5 RECURRENT THROMBOSIS Performed By: #### H STROPN #### [facility] [address] [address] [address] Kulwant Brennan PT Coag (PPP) [Time] 12.5 s Critically high 9.0-11.6 [facility] Comment on above: Performed By: #### H STROPN #### [facility] [address] [address] [address] Kulwant Brennan PTTon 12-31-2021 aPTT Coag (Bld) [Time] 33.3 s Normal 22.3-36.2 [facility] Comment on above: Performed By: #### P TT, PT ####[facility] [address] [place], [place] [address]Dr. Kulwant Brennan TROPONIN, HIGH SENSITIVITYon 12-31-2021 HSTROP 6.0 pg/mL Normal 4.0-76.1 [facility] Comment on above: Result Comment: CUT- OFF POINTS HAVE BEEN ESTABLISHED BASED ON THE FOURTH UNIVERSAL DEFINITIONS OF MYOCARDIAL INFARCTION. THE UPPER REFERENCE LIMIT (URL) OF TROPONIN, DEFINED THE 99TH PERCENTILE OF cTnI DISTRIBUTION IN A REFERENCE POPULATION, HAS BEEN CONFIRMED THE DECISION THRESHOLD FOR CO DIAGNOSIS. Performed By: #### L ACT #### [facility] [address] [address] [address] Kulwant Brennan URINE MICROSCOPIC ONLYon BACTERIA SMALL Abnormal NONE SEEN [facility] Comment on above: Performed By: #### ANA LAURA VARELA ####[facility] [address] [address]Dr. Kulwant Brennan Bacteria identified Cx Nom (U) INDICATED Normal [facility] Comment on above: Performed By: #### E EMILIO UMICRO ####[facility] [address] [address]Dr. Kulwant Brennan CAST SEEN Abnormal NONE SEEN [facility] Comment on above: Performed By: #### Lilly JHAVERI UMICRO ####[facility] [address] [address]Dr. Kulwant Brennan COARSE GRANULAR CAST FEW Normal [facility] Comment on above: Performed By: #### Lilly JHAVERI UMICRO ####[facility] [address] [id number]. Kulwant Brennan Crystals LM Nom (Urine sed) NONE SEEN Normal NONE SEEN [facility] Comment on above: Performed By: #### Lilly JHAVERI UMICRO ####[facility] [address] [address]Dr. Kulwant Brennan Epithelial cells LM Ql (Urine sed) FEW Abnormal NONE SEEN /RARE [facility] Comment on above: Performed By: #### Lilly JHAVERI UMICRO ####[facility] [address] [address]Dr. Kulwant Brennan MUCOUS TRACE Abnormal NONE SEEN [facility] Comment on above: Performed By: #### Lilly JHAVERI UMICRO ####[facility] [address] [address]Dr. Kulwant Brennan RBC 5-10 Abnormal 0-2 [facility] Comment on above: Performed By: #### Lilly JHAVERI UMICRO ####[facility] [address] [address]Dr. Kulwant Brennan WBC 0-2 Abnormal NONE SEEN [facility] Comment on above: Performed By: #### Lilly JHAVERI UMICRO ####[facility] [address] [place], [place] [address]Dr. Kulwant Brennan US SINGLE QUAD RT UPPERon [...] DAVIE NARANJO Date: 2021-12-31 19:27 Normal [facility] AMYLASEon 12-30-2021 Amylase [Catalytic activity/Vol] 47 U/L Normal 25-115 [facility] Comment on above: Performed By: #### H STROPN #### [facility] [address] [place] [address] Dr. Kulwant Brennan CBC AUTO DIFFon 12-30-2021 BASO # 0.0 103/ul Normal 0.0-0.1 [facility] Comment on above: Performed By: #### L ACT #### [facility] [address] [place] [address] Dr. Kulwant Brennan Basophils/100 WBC (Bld) 0.5 % Normal 0.2-2.0 [facility] Comment on above: Performed By: #### L ACT #### [facility] [address] [place] [address] Dr. Kulwant Brennan EO # 0.3 103/ul Normal 0.0-0.7 [facility] Comment on above: Performed By: #### L ACT #### [facility] [address] [place] [address] Dr. Kulwant Brennan Eosinophils/100 WBC (Bld) 3.3 % Normal 0.9-7.0 [facility] Comment on above: Performed By: #### L ACT #### [facility] [address] [place] [address] Dr. Kulwant Brennan Erythrocyte distribution width (RBC) [Ratio] 14.1 % Normal 11.0-15.0 [facility] Comment on above: Performed By: #### L ACT #### [facility] [address] [place] [address] Dr. Kulwant Brennan Hematocrit (Bld) [Volume fraction] 38.8 % Critically low 42.0-54.0 [facility] Comment on above: Performed By: #### L ACT #### [facility] [address] [place] [address] Dr. Kulwant Brennan Hemoglobin (Bld) [Mass/Vol] 12.4 g/dL Critically low 14.0-18.0 [facility] Comment on above: Performed By: #### L ACT #### [facility] [address] [place] [address] Dr. Kulwant Brennan IG # 0.04 10e3/ul Critically high 0.00-0.03 [facility] Comment on above: Performed By: #### L ACT #### [facility] [address] [place] [address] Dr. Kulwant Brennan IG % 0.5 % Normal 0.0-0.5 [facility] Comment on above: Performed By: #### L ACT #### [facility] [address] [place] [address] Dr. Kulwant Brennan LYMPH # 1.9 103/ul Normal 1.2-3.8 [facility] Comment on above: Performed By: #### L ACT #### [facility] [address] [place] [address] Dr. Kulwant Brennan Lymphocytes/100 WBC (Bld) 23.9 % Normal 20.5-60.0 [facility] Comment on above: Performed By: #### L ACT #### [facility] [address] [place] [address] Dr. Kulwant Brennan MANUAL DIFF REQ NO Normal [facility] Comment on above: Performed By: #### L ACT #### [facility] [address] [place] [address] Dr. Kulwant Brennan MCH (RBC) [Entitic mass] 27.5 pg Normal 25.9-34.0 [facility] Comment on above: Performed By: #### L ACT #### [facility] [address] [place] [address] Dr. Kulwant Brennan MCHC (RBC) [Mass/Vol] 32.0 g/dL Normal 29.9-35.2 [facility] Comment on above: Performed By: #### L ACT #### [facility] [address] [place] [address] Dr. Kulwant Brennan MCV (RBC) [Entitic vol] 86.0 fL Normal 80.0-94.0 [facility] Comment on above: Performed By: #### L ACT #### [facility] [address] [place] [address] Dr. Kulwant Brennan MONO # 0.9 103/ul Critically high 0.3-0.8 [facility] Comment on above: Performed By: #### L ACT #### [facility] [address] [place] [address] Dr. Kulwant Brennan Monocytes/100 WBC (Bld) 11.8 % Normal 1.7-12.0 [facility] Comment on above: Performed By: #### L ACT #### [facility] [address] [place] [address] Dr. Kulwant Brennan NEUT # 4.7 103/ul Normal 1.4-6.5 [facility] Comment on above: Performed By: #### L ACT #### [facility] [address] [place] [address] Dr. Kulwant Brennan Neutrophils/100 WBC (Bld) 60.0 % Normal 43.0-75.0 [facility] Comment on above: Performed By: #### L ACT #### [facility] [address] [place] [address] Dr. Kulwant Brennan Platelet mean volume (Bld) [Entitic vol] 10.0 fL Normal 9.5-13.5 [facility] Comment on above: Performed By: #### L ACT #### [facility] [address], [place] [address] Dr. Kulwant Brennan PLT 222 103/ul Normal 150-450 [facility] Comment on above: Performed By: #### L ACT #### [facility] [address], [place] [address] Dr. Kulwant Brennan RBC 4.51 106/ul Critically low 4.70-6.10 [facility] Comment on above: Performed By: #### L ACT #### [facility] [address], [place] [address] Dr. Kulwant Brennan WBC 7.9 103/ul Normal 4.0-11.0 [facility] Comment on above: Performed By: #### L ACT #### [facility] [address], [place] [address] [address] ABD/PELV W CONon 12-31-19 CT ABD/PELV W CON EXAMINATION: CT ABD/ PELV W CON HISTORY: UNSPECIFIED ABDOMINAL PAIN COMPARISON: 12/29/2021. TECHNIQUE: CT of abdomen/pelvis with intravenous contrast. Dose reduction techniques were achieved by using automated exposure control and/or adjustment of mA and/or kV according to patient size and/or use of iterative reconstruction technique. FINDINGS: Billboard Mechanic: No pertinent findings, which are not already [...] ALIYA NEFF Date: 2021-12-30 21:29 Normal [facility] ER URINE PROFILEon 2 Bilirubin Ql (U) Negative Normal NEGATIVE [facility] Comment on above: Performed By: #### L ACT #### [facility] [address] [address] [address] Kulwant Brennan Clarity (U) CLEAR Normal CLEAR [facility] Comment on above: Performed By: #### L ACT #### [facility] [address] [address] [address] Kulwant Brennan Color (U) LT. YELLOW Normal YELLOW [facility] Comment on above: Performed By: #### L ACT #### [facility] [address] [address] [address] Kulwant Brennan ERUAHD A micrscopic examina tion will be performed if indicated. Normal [facility] Comment on above: Performed By: #### L ACT #### [facility] [address] [address] [address] Kulwant Brennan Glucose Ql (U) Negative Normal NEGATIVE [facility] Comment on above: Performed By: #### L ACT #### [facility] [address] [address] [address] Kulwant Brennan Hemoglobin Ql (U) Negative Normal NEGATIVE [facility] Comment on above: Performed By: #### L ACT #### [facility] [address] [place] [address] Dr. Kulwant Brennan Ketones Ql (U) Negative Normal NEGATIVE [facility] Comment on above: Performed By: #### L ACT #### [facility] [address] [place] [address] Dr. Kulwant Brennan LEUKOCYTES Negative Normal NEGATIVE [facility] Comment on above: Performed By: #### L ACT #### [facility] [address] [place] [address] Dr. Kulwant Brennan Nitrite Ql (U) Negative Normal NEGATIVE [facility] Comment on above: Performed By: #### L ACT #### [facility] [address] [place] [address] Dr. Kulwant Brennan pH (U) 5.5 [pH] Normal 5-9 [facility] Comment on above: Performed By: #### L ACT #### [facility] [address] [place] [address] Dr. Kulwant Brennan SPEC GRAVITY >=1.030 Abnormal 1.005-<=1. 025 [facility] Comment on above: Performed By: #### L ACT #### [facility] [address] [place] [address] Dr. Kulwant Brennan UA PROTEIN Negative Normal NEGATIVE/ TRACE [facility] Comment on above: Performed By: #### L ACT #### [facility] [address] [place] [address] Dr. Kulwant Brennan UR MICRO IND NOT INDICATED Normal [facility] Comment on above: Performed By: #### L ACT #### [facility] [address] [place] [address] Dr. Kulwant Brennan Urobilinogen Qn (U) 0.2 {Luis'U}/dL Normal 0.2 - 1. 0 [facility] Comment on above: Performed By: #### L ACT #### [facility] [address] [place] [address] Dr. Kulwant Brennan LIPASEon 12-30-2021 Lipase [Catalytic activity/Vol] 105.0 U/L Normal 73.0-393.0 [facility] Comment on above: Performed By: #### H STROPN #### [facility] [address] [address] [address] Kulwant Brennan LIVER PROFILEon 12-30-2021 Albumin [Mass/Vol] 3.8 g/dL Normal 3.4-5.0 [facility] Comment on above: Performed By: #### H STROPN #### [facility] [address] [address] [address] Kulwant Brennan Albumin/Globulin [Mass ratio] 1.0 {ratio} Normal [facility] Comment on above: Performed By: #### H STROPN #### [facility] [address] [place] [address] Dr. Kulwant Brennan ALP [Catalytic activity/Vol] 67 U/L Normal 46-116 [facility] Comment on above: Performed By: #### H STROPN #### [facility] [address] [place] [address] Dr. Kulwant Brennan ALT [Catalytic activity/Vol] 31 U/L Normal 16-63 [facility] Comment on above: Performed By: #### H STROPN #### [facility] [address] [place] [address] Dr. Kulwant Brennan AST [Catalytic activity/Vol] 21 U/L Normal 15-37 [facility] Comment on above: Performed By: #### H STROPN #### [facility] [address] [place] [address] Dr. Kulwant Brennan BILI, CONJUGATED 0.1 mg/dL Normal 0.0-0.2 [facility] Comment on above: Performed By: #### H STROPN #### [facility] [address] [place] [address] Dr. Kulwant Brennan Bilirubin [Mass/Vol] 0.5 mg/dL Normal 0.2-1.0 [facility] Comment on above: Performed By: #### H STROPN #### [facility] [address] [place] [address] Dr. Kulwant Brennan Globulin (S) [Mass/Vol] 3.7 g/dL Normal [facility] Comment on above: Performed By: #### H STROPN #### [facility] [address] [address] [address] Kulwant Brennan Protein [Mass/Vol] 7.5 g/dL Normal 6.4-8.2 [facility] Comment on above: Performed By: #### H STROPN #### [facility] [address] [address] [address] Kulwant Brennan PROF CHEM 8 (BAS METB)on Anion gap [Moles/Vol] 14.5 mmol/L Normal [facility] Comment on above: Performed By: #### H STROPN #### [facility] [address] [address] [address] Kulwant Brennan Calcium [Mass/Vol] 7.5 mg/dL Critically low 8.5-10.1 [facility] Comment on above: Performed By: #### H STROPN #### [facility] [address] [address] [address] Kulwant Brennan Chloride [Moles/Vol] 104 mmol/L Normal 98-107 [facility] Comment on above: Performed By: #### H STROPN #### [facility] [address] [address] [address] Kulwant Brennan CO2 [Moles/Vol] 26.8 mmol/L Normal 21.0-32.0 [facility] Comment on above: Performed By: #### H STROPN #### [facility] [address] [address] [address] Kulwant Brennan Creatinine [Mass/Vol] 1.31 mg/dL Critically high 0.70-1.30 [facility] Comment on above: Performed By: #### H STROPN #### [facility] [address] [address] [address] Kulwant Brennan EGFR-AF MONTSERRATIAN >60 Normal >=60 [facility] Comment on above: Performed By: #### H STROPN #### [facility] [address] [address] [address] Kulwant Brennan EGFR-NON AF MONTSERRATIAN 54 mL/min/1.73m2 Critically low >=60 [facility] Comment on above: Performed By: #### H STROPN #### [facility] [address] [address] [address] Kulwant Brennan Glucose [Mass/Vol] 97 mg/dL Normal 74-106 [facility] Comment on above: Performed By: #### H STROPN #### [facility] [address] [address] [address] Kulwant Brennan Potassium [Moles/Vol] 4.3 mmol/L Normal 3.5-5.1 [facility] Comment on above: Performed By: #### H STROPN #### [facility] [address] [address] [address] Kulwant Brennan Sodium [Moles/Vol] 141 mmol/L Normal 136-145 [facility] Comment on above: Performed By: #### H STROPN #### [facility] [address] [address] [address] Kulwant Brennan Urea nitrogen [Mass/Vol] 25.0 mg/dL Critically high 7.0-18.0 [facility] Comment on above: Performed By: #### H STROPN #### [facility] [address] [address] [address] Kulwant Brennan Urea nitrogen/Creatinine [Mass ratio] 19.1 mg/mg Normal [facility] Comment on above: Performed By: #### H STROPN #### [facility] [address] [address] [address] Kulwant Brennan CBC AUTO DIFFon 12-29-2021 BASO # 0.0 103/ul Normal 0.0-0.1 [facility] Comment on above: Performed By: #### H STROPN #### [facility] [address] [address] [address] Kulwant Brennan Basophils/100 WBC (Bld) 0.5 % Normal 0.2-2.0 [facility] Comment on above: Performed By: #### H STROPN #### [facility] [address] [address] [address] Kulwant Brennan EO # 0.3 103/ul Normal 0.0-0.7 [facility] Comment on above: Performed By: #### H STROPN #### [facility] [address] [place] [address] Dr. Kulwant Brennan Eosinophils/100 WBC (Bld) 3.6 % Normal 0.9-7.0 [facility] Comment on above: Performed By: #### H STROPN #### [facility] [address] [place] [address] Dr. Kulwant Brennan Erythrocyte distribution width (RBC) [Ratio] 14.1 % Normal 11.0-15.0 [facility] Comment on above: Performed By: #### H STROPN #### [facility] [address] [place] [address] Dr. Kulwant Brennan Hematocrit (Bld) [Volume fraction] 39.0 % Critically low 42.0-54.0 [facility] Comment on above: Performed By: #### H STROPN #### [facility] [address] [place] [address] Dr. Kulwant Brennan Hemoglobin (Bld) [Mass/Vol] 12.5 g/dL Critically low 14.0-18.0 [facility] Comment on above: Performed By: #### H STROPN #### [facility] [address] [place] [address] Dr. Kulwant Brennan IG # 0.03 10e3/ul Normal 0.00-0.03 [facility] Comment on above: Performed By: #### H STROPN #### [facility] [address] [place] [address] Dr. Kulwant Brennan IG % 0.4 % Normal 0.0-0.5 [facility] Comment on above: Performed By: #### H STROPN #### [facility] [address] [place] [address] Dr. Kulwant Brennan LYMPH # 2.0 103/ul Normal 1.2-3.8 [facility] Comment on above: Performed By: #### H STROPN #### [facility] [address] [place] [address] Dr. Kulwant Brennan Lymphocytes/100 WBC (Bld) 28.0 % Normal 20.5-60.0 [facility] Comment on above: Performed By: #### H STROPN #### [facility] [address] [address] [address] Kulwant Brennan MANUAL DIFF REQ NO Normal [facility] Comment on above: Performed By: #### H STROPN #### [facility] [address] [place] [address] Dr. Kulwant Brennan MCH (RBC) [Entitic mass] 27.5 pg Normal 25.9-34.0 [facility] Comment on above: Performed By: #### H STROPN #### [facility] [address] [place] [address] Dr. Kulwant Brennan MCHC (RBC) [Mass/Vol] 32.1 g/dL Normal 29.9-35.2 [facility] Comment on above: Performed By: #### H STROPN #### [facility] [address] [place] [address] Dr. Kulwant Brennan MCV (RBC) [Entitic vol] 85.7 fL Normal 80.0-94.0 [facility] Comment on above: Performed By: #### H STROPN #### [facility] [address] [place] [address] Dr. Kulwant Brennan MONO # 1.0 103/ul Critically high 0.3-0.8 [facility] Comment on above: Performed By: #### H STROPN #### [facility] [address] [place] [address] Dr. Kulwant Brennan Monocytes/100 WBC (Bld) 14.0 % Critically high 1.7-12.0 [facility] Comment on above: Performed By: #### H STROPN #### [facility] [address] [address] [address] Kulwant Brennan NEUT # 3.9 103/ul Normal 1.4-6.5 [facility] Comment on above: Performed By: #### H STROPN #### [facility] [address] [place] [address] Dr. Kulwant Brennan Neutrophils/100 WBC (Bld) 53.5 % Normal 43.0-75.0 [facility] Comment on above: Performed By: #### H STROPN #### [facility] [address], [place] [address] Dr. Kulwant Brennan Platelet mean volume (Bld) [Entitic vol] 10.1 fL Normal 9.5-13.5 [facility] Comment on above: Performed By: #### H STROPN #### [facility] [id number] Kulwant Brennan PLT 237 103/ul Normal 150-450 [facility] Comment on above: Performed By: #### H STROPN #### [facility] [address], [place] [address] Dr. Kulwant Brennan RBC 4.55 106/ul Critically low 4.70-6.10 [facility] Comment on above: Performed By: #### H STROPN #### [facility] [id number] Kulwant Brennan WBC 7.3 103/ul Normal 4.0-11.0 [facility] Comment on above: Performed By: #### H STROPN #### [facility] [address], [place] [address] ABD/PELVIS WO CONon [...] AMOS RAMIREZ Date: 2021-12-29 00:59 Normal [facility] PROF 14(COMP METB)on 022 Albumin [Mass/Vol] 4.0 g/dL Normal 3.4-5.0 [facility] Comment on above: Performed By: #### H STROPN #### [facility] [address] [address] [address] Kulwant Brennan Albumin/Globulin [Mass ratio] 1.1 {ratio} Normal [facility] Comment on above: Performed By: #### H STROPN #### [facility] [address], [place] [address] Dr. Kulwant Brennan ALP [Catalytic activity/Vol] 68 U/L Normal 46-116 [facility] Comment on above: Performed By: #### H STROPN #### [facility] [address] [address] [address] Kulwant Brennan ALT [Catalytic activity/Vol] 27 U/L Normal 16-63 [facility] Comment on above: Performed By: #### H STROPN #### [facility] [address] [address] [address] Kulwant Brennan Anion gap [Moles/Vol] 12.8 mmol/L Normal [facility] Comment on above: Performed By: #### H STROPN #### [facility] [address] [address] [address] Kulwant Brennan AST [Catalytic activity/Vol] 16 U/L Normal 15-37 [facility] Comment on above: Performed By: #### H STROPN #### [facility] [address] [address] [address] Kulwant Brennan Bilirubin [Mass/Vol] 0.5 mg/dL Normal 0.2-1.0 [facility] Comment on above: Performed By: #### H STROPN #### [facility] [address] [place] [address] Dr. Kulwant Brennan Calcium [Mass/Vol] 7.4 mg/dL Critically low 8.5-10.1 [facility] Comment on above: Performed By: #### H STROPN #### [facility] [address] [place] [address] Dr. Kulwant Brennan Chloride [Moles/Vol] 102 mmol/L Normal 98-107 [facility] Comment on above: Performed By: #### H STROPN #### [facility] [address] [place] [address] Dr. Kulwant Brennan CO2 [Moles/Vol] 27.1 mmol/L Normal 21.0-32.0 [facility] Comment on above: Performed By: #### H STROPN #### [facility] [address] [place] [address] Dr. Kulwant Brennan Creatinine [Mass/Vol] 1.42 mg/dL Critically high 0.70-1.30 [facility] Comment on above: Performed By: #### H STROPN #### [facility] [address] [place] [address] Dr. Kulwant Brennan EGFR-AF MONTSERRATIAN 60 mL/min/1.73m2 Normal >=60 [facility] Comment on above: Performed By: #### H STROPN #### [facility] [address] [address] [address] Kulwant Brennan EGFR-NON AF MONTSERRATIAN 50 mL/min/1.73m2 Critically low >=60 [facility] Comment on above: Performed By: #### H STROPN #### [facility] [address] [address] [address] Kulwant Brennan Globulin (S) [Mass/Vol] 3.5 g/dL Normal [facility] Comment on above: Performed By: #### H STROPN #### [facility] [address] [address] [address] Kulwant Brennan Glucose [Mass/Vol] 139 mg/dL Critically high 74-106 [facility] Comment on above: Performed By: #### H STROPN #### [facility] [address] [address] [address] Kulwant Brennan Potassium [Moles/Vol] 3.9 mmol/L Normal 3.5-5.1 [facility] Comment on above: Performed By: #### H STROPN #### [facility] [address] [address] [address] Kulwant Brennan Protein [Mass/Vol] 7.5 g/dL Normal 6.4-8.2 [facility] Comment on above: Performed By: #### H STROPN #### [facility] [address] [address] [address] Kulwant Brennan Sodium [Moles/Vol] 138 mmol/L Normal 136-145 [facility] Comment on above: Performed By: #### H STROPN #### [facility] [address] [address] [address] Kulwant Brennan Urea nitrogen [Mass/Vol] 27.0 mg/dL Critically high 7.0-18.0 [facility] Comment on above: Performed By: #### H STROPN #### [facility] [address] [address] [address] Kulwant Brennan Urea nitrogen/Creatinine [Mass ratio] 19.0 mg/mg Normal [facility] Comment on above: Performed By: #### H STROPN #### [facility] [address] [place] [address] Dr. Kulwant Brennan APTTon 12-13-2021 aPTT Coag (Bld) [Time] 32.8 s Normal 25.0-35.0 [facility] Comment on above: Order Comment: No: D [...] FOR THIS PURPOSE. Performed By: #### 5 610, [id number] #### [facility] [address] CBC COMPLETE BLOOD COUNTon 0 12-13-2021 Erythrocyte distribution width (RBC) [Ratio] 14.0 % Normal 11.5-15.0 [facility] Comment on above: Order Comment: No: D o not add to previous draw Performed By: #### 5 610, 75710 #### [facility] [address] Hematocrit (Bld) [Volume fraction] 36.7 % Low 39.0-50.0 [facility] Comment on above: Order Comment: No: D o not add to previous draw Performed By: #### 5 6101, 70905 #### [facility] [address] [facility] [place] [address], [facility] Hemoglobin (Bld) [Mass/Vol] 12.0 g/dL Low 13.0-17.0 [facility] Comment on above: Order Comment: No: D o not add to previous draw Performed By: #### 5 6101, 56274 #### [facility] [address] [place] [address], [facility] MCH (RBC) [Entitic mass] 27.5 pg Normal 27.0-33.0 [facility] Comment on above: Order Comment: No: D o not add to previous draw Performed By: #### 5 610, 29259 #### [facility] [address] [place] [address], [facility] MCHC (RBC) [Mass/Vol] 32.7 g/dL Normal 32.0-35.0 [facility] Comment on above: Order Comment: No: D o not add to previous draw Performed By: #### 5 6100, 35833 #### [facility] [address] [place] [address], [facility] MCV (RBC) [Entitic vol] 84.0 fL Normal 82.0-98.0 [facility] Comment on above: Order Comment: No: D o not add to previous draw Performed By: #### 5 610, 31402 #### [facility] [address] [place] [address], [facility] Nucleated RBC/100 WBC (Bld) [Ratio] 0 % Normal 0-0 [facility] Comment on above: Order Comment: No: D o not add to previous draw Performed By: #### 5 6100, 11571 #### [facility] [address] [place] [address], [facility] PLAT CNT 166 10*3/uL Normal 150-400 [facility] Comment on above: Order Comment: No: D o not add to previous draw Performed By: #### 5 610, 65063 #### [facility] [address] [place] [address], [facility] RBC (Bld) [#/Vol] 4.37 10*6/uL Normal 4.20-5.70 [facility] Comment on above: Order Comment: No: D o not add to previous draw Performed By: #### 5 610, 07158 #### [facility] [address] [place] [address], [facility] WBC (Bld) [#/Vol] 8.41 10*3/uL Normal 4.00-10.60 [facility] Comment on above: Order Comment: No: D o not add to previous draw Performed By: #### 5 610, 20593 #### [facility] [address] [place] [address], [place] COMP METABOLIC PANELon 12-13 Albumin [Mass/Vol] 3.8 g/dL Normal 3.5-5.7 [facility] Comment on above: Order Comment: No: D o not add to previous draw Performed By: #### 5 610, 46525 #### [facility] [address] [place] [address], [place] ALKALINE PHOSPH 52 IU/L Normal 34-104 [facility] Comment on above: Order Comment: No: D o not add to previous draw Performed By: #### 5 610, 81411 #### [facility] [address] [place] [address], [place] ALT [Catalytic activity/Vol] 16 U/L Normal 7-52 [facility] Comment on above: Order Comment: No: D o not add to previous draw Performed By: #### 5 6100, 59244 #### [facility] [address] [place] [address], [place] AST [Catalytic activity/Vol] 15 U/L Normal 13-39 [facility] Comment on above: Order Comment: No: D o not add to previous draw Performed By: #### 5 610, 62680 #### [facility] [address] [place] [address], [place] Bilirubin [Mass/Vol] 0.9 mg/dL Normal 0.3-1.0 [facility] Comment on above: Order Comment: No: D o not add to previous draw Performed By: #### 5 610, 76788 #### [facility] [address] [place] [address], [place] Calcium [Mass/Vol] 7.0 mg/dL Low 8.6-10.3 [facility] Comment on above: Order Comment: No: D o not add to previous draw Performed By: #### 5 610, 61036 #### [facility] [address] [place] [address], [facility] Chloride [Moles/Vol] 106 mmol/L Normal 98-107 [facility] Comment on above: Order Comment: No: D o not add to previous draw Performed By: #### 5 610, 71904 #### [facility] [address] [place] [address], [facility] CO2 [Moles/Vol] 27 mmol/L Normal 21-31 [facility] Comment on above: Order Comment: No: D o not add to previous draw Performed By: #### 5 610, 95355 #### [facility] [address] [place] [address], [facility] Creatinine [Mass/Vol] 1.16 mg/dL Normal 0.70-1.30 [facility] Comment on above: Order Comment: No: D o not add to previous draw Performed By: #### 5 610, 72303 #### [facility] [address] [place] [address], [facility] GFR/1.73 sq M.predicted among non-blacks MDRD (S/P/Bld) [Vol rate/Area] mL/min/{1.73_m2} Normal >60 [facility] Comment on above: Order Comment: No: D o not add to previous draw Result Comment: [facility]'s estimated glomerular filtration rate (eGFR) will no [...] of individuals. Performed By: #### 5 6101, 25503 #### [facility] [address] [place] [address], [place] Glucose [Mass/Vol] 104 mg/dL High 70-100 [facility] Comment on above: Order Comment: No: D o not add to previous draw Performed By: #### 5 6101, 07223 #### [facility] [address] [place] [address], [place] Potassium [Moles/Vol] 4.3 mmol/L Normal 3.5-5.1 [facility] Comment on above: Order Comment: No: D o not add to previous draw Performed By: #### 5 6101, 86696 #### [facility] [address] [place] [address], [place] Protein [Mass/Vol] 6.2 g/dL Normal 6.0-8.3 [facility] Comment on above: Order Comment: No: D o not add to previous draw Performed By: #### 5 6101, 74499 #### [facility] [address] [place] [address], [place] Sodium [Moles/Vol] 138 mmol/L Normal 136-145 [facility] Comment on above: Order Comment: No: D o not add to previous draw Performed By: #### 5 6101, 78038 #### [facility] [address] [place] [address], [place] Urea nitrogen [Mass/Vol] 26 mg/dL High 7-25 [facility] Comment on above: Order Comment: No: D o not add to previous draw Performed By: #### 5 6101, 72521 #### [facility] [address] [place] [address], [place] Cardiovascular Lab Reporton 12-13-[address] [facility] Patient Name: Yoli Antunez [facility] MR #: [id number] Physician: Mono Montero [facility] Service Date: 12/12/2021 Division of Birthdate: 1955 Cardiology Room #: [id number] Adult Cardiovascular Services [facility] [address] [place] [address] Cardiovascular Laboratory Report INDICATION: The patient is [...] the right common femoral vein using a 6-Paraguayan ProGlide device. METHODS: Procedure was explained to the patient with risks and benefits, he signed informed consent. He was brought [facility] in a fasting state. The procedure was [...] the right common femoral vein and a 6-Paraguayan x 11 cm sheath was placed. Preclosure in the vein was performed using a 6-Paraguayan ProGlide device, a transseptal wire was advanced [...] was retracted and exchanged to the Watchman 14-Paraguayan double curve access sheath. This was not [...] stiffer wire. This was performed using a 6-Paraguayan multipurpose catheter, through which we advanced a Lunderquist double curve wire and the distal end was placed in the left superior pulmonary vein. This eventually allowed to advance the sheath across the interatrial septum. A 6-Paraguayan angled pigtail catheter was advanced and used [...] the (more content not included)... Normal [facility] PROTHROMBIN TIMEon 2 INR Coag (PPP) [Relative time] 1.09 {INR} Normal 0.91-1.16 [facility] Comment on above: Order Comment: No: D [...] CHEST 1995;[id number]. Performed By: #### 5 6101, 68487 #### [facility] [employer] [address] PT Coag (PPP) [Time] 14.1 s Normal 12.3-14.8 [facility] Comment on above: Order Comment: No: D o not add to previous draw Result Comment: ALL RESULTS MUST BE INTERPRETED WITH RESPECT TO BLOOD DRAWING ARTIFACT OR DILUTION ERROR OF ANTICOAGULANT AT THE TIME OF SAMPLING. Performed By: #### 5 6101, 00170 #### [facility] [address] TYPE AND SCREENon 12-12-2021 ABO INTERPRETATION O Normal [facility] Comment on above: Performed By: #### 6 2586 #### [facility] [address] [place] [address], [facility] RH INTERPRETATION Positive Normal [facility] Comment on above: Performed By: #### 6 2586 #### [facility] [address] [facility] Covid-19 PCR (CVDTB)on 11-20 SARS-CoV-2 (COVID-19) RNA MIKE+probe Ql (Unsp spec) Not detected Normal NOT DETECTED [facility] Comment on above: Result Comment: This test is not yet approved or cleared by the [place] FDA. When there are no FDA-approved or cleared tests available, and other criteria are met, FDA can make tests available under an emergency access mechanism called an Emergency Use Authorization (EUA). The EUA for this test is supported by the Director Of [employer] of Health and Human Service's (HHS's) declaration [...] SARS-CoV-2. Performed By: #### L ACT #### [facility] [address] [place] [address] Dr. Kulwant Brennan *MRSA/MSSA DNA NASALon 11-21 *MRSA/MSSA DNA NASAL Clinical Report: (D) Specimen: NASAL SWAB Collected: 11/21/2021 09:15 Status: Final Last Updated: 11/21/2021 12:32 MSSA DNA (Final) Negative MRSA DNA (Final) Negative Normal [facility] Comment on above: Performed By: #### 3 1595 #### [facility] [address] [place] [address], [facility] BASIC METABOLIC PANELon Calcium [Mass/Vol] 7.0 mg/dL Low 8.6-10.3 [facility] Comment on above: Performed By: #### 0 0071 #### [facility] [address] [place] [address], [facility] Chloride [Moles/Vol] 105 mmol/L Normal 98-107 [facility] Comment on above: Performed By: #### 0 0071 #### [facility] [address] [place] [address], [facility] CO2 [Moles/Vol] 25 mmol/L Normal 21-31 [facility] Comment on above: Performed By: #### 0 0071 #### [facility] [address] [place] [address], [place] Creatinine [Mass/Vol] 1.37 mg/dL High 0.70-1.30 [facility] Comment on above: Performed By: #### 0 0071 #### [facility] [address] [place] [address], [facility] EGFR 56 ml/min/1.73sq m Abnormal >60 [facility] Comment on above: Result Comment: [facility]'s estimated glomerular filtration rate (eGFR) will no [...] individuals. Performed By: #### 0 0071 #### [facility] [address] [place] [address], [place] Glucose [Mass/Vol] 100 mg/dL Normal 70-100 [facility] Comment on above: Performed By: #### 0 0071 #### [facility] [address] [place] [address], [place] Potassium [Moles/Vol] 4.6 mmol/L Normal 3.5-5.1 [facility] Comment on above: Performed By: #### 0 0071 #### [facility] [address] [place] [address], [place] Sodium [Moles/Vol] 139 mmol/L Normal 136-145 [facility] Comment on above: Performed By: #### 0 0071 #### [facility] [address] [place] [address], [facility] Urea nitrogen [Mass/Vol] 26 mg/dL High 7-25 [facility] Comment on above: Performed By: #### 0 0071 #### [facility] [address] [place] [id number], [facility] CBC COMPLETE BLOOD COUNTon 0 11-21-2021 Erythrocyte distribution width (RBC) [Ratio] 14.2 % Normal 11.5-15.0 [facility] Comment on above: Performed By: #### 5 6101, 14688 #### [facility] [address] [place] [address], [facility] Hematocrit (Bld) [Volume fraction] 40.6 % Normal 39.0-50.0 [facility] Comment on above: Performed By: #### 5 610, 05564 #### [facility] [address] [place] [address], [facility] Hemoglobin (Bld) [Mass/Vol] 13.0 g/dL Normal 13.0-17.0 [facility] Comment on above: Performed By: #### 5 610, 30853 #### [facility] [address] [place] [address], [facility] MCH (RBC) [Entitic mass] 27.0 pg Normal 27.0-33.0 [facility] Comment on above: Performed By: #### 5 610, 06406 #### [facility] [address] [place] [id number], [facility] MCHC (RBC) [Mass/Vol] 32.0 g/dL Normal 32.0-35.0 [facility] Comment on above: Performed By: #### 5 610, 15789 #### [facility] [address] [place] [id number], [facility] MCV (RBC) [Entitic vol] 84.4 fL Normal 82.0-98.0 [facility] Comment on above: Performed By: #### 5 6101, 61416 #### [facility] [address] [place] [address], [facility] Nucleated RBC/100 WBC (Bld) [Ratio] 0 % Normal 0-0 [facility] Comment on above: Performed By: #### 5 6101, 44379 #### [facility] [address] [place] [address], [facility] PLAT CNT 232 10*3/uL Normal 150-400 [facility] Comment on above: Performed By: #### 5 6101, 50032 #### [facility] [address] [place] [address], [facility] RBC (Bld) [#/Vol] 4.81 10*6/uL Normal 4.20-5.70 [facility] Comment on above: Performed By: #### 5 6101, 60993 #### [facility] [address] [place] [address], [facility] WBC (Bld) [#/Vol] 7.53 10*3/uL Normal 4.00-10.60 [facility] Comment on above: Performed By: #### 5 6101, 36525 #### [facility] [address] CHEST AND LATERALon 11-22-19 CHEST AND LATERAL [facility] Department of Radiology [address] [place] [address] Patient Name: YOLI ANTUNEZ : 1955 Sex: [...] device. Electronically signed: Danilo Bhandari. Transcribed by: [email or web address], User Resident: Electronically Signed by: DANILO BHANDARI @ 11/21/2021 11:32 AM Normal [facility] Comment on above: Order Comment: No: D o not add to previous draw Covid-19 PCR (CVDTB)on 10-21 SARS-CoV-2 (COVID-19) RNA MIKE+probe Ql (Unsp spec) Not detected Normal NOT DETECTED [facility] Comment on above: Result Comment: This test is not yet approved or cleared by the [place] FDA. When there are no FDA-approved or cleared tests available, and other criteria are met, FDA can make tests available under an emergency access mechanism called an Emergency Use Authorization (EUA). The EUA for this test is supported by the [place] of Health and Human Service's (HHS's) declaration [...] consistent with SARS-CoV-2. Performed By: #### C [facility] ####[facility] [address] [place], [place] [address]Mo. Kulwant Brennan Cardiovascular Lab Reporton 11-09-[address] [facility] MR #: [id number] Department of Physician: Lalito Joshi MD Medicine Service Date: 11/09/2021 Division of Birthdate: 1955 Cardiology Room #: Adult Cardiovascular Services [place] [address] Cardiovascular Laboratory Report LOOP IMPLANT PROCEDURE NOTE [...] the sternum on the left using the [place] Tagent tool. The loop recorder was then injected [...] observed. LOOP details: Device Model: M301 Serial#: [id number] Sensin.16mV. IMPRESSION: Successful placement of LOOP implant with excellent sensing parameters. RECOMMENDATIONS: 1. Occlusive dressing to be changed after 7 days. 2. Do not wet the incision. Lalito Joshi MD Cardiac Electrophysiology. Electronically Signed by: Lalito Joshi MD 11/10/2021 11:10 A Lalito Joshi MD Date Dict: 11/09/2021/08:45 A/Lalito Joshi MD Date Trans: 11/09/2021 11:32 A/liliane DN_JN:[id number] cc: Radha Burris M.D. [address] [facility] [address] Normal [facility] POC SARS COV2 IDon 2 SARS-CoV-2 (COVID-19) RNA MIKE+probe Ql (Unsp spec) Negative Normal NEGATIVE [facility] Comment on above: Result Comment: ID N OW COVID-19 assay performed on the [employer] Instrument is a rapid molecular in vitro [...] of Accreditation. Performed By: #### 5 [id number], [id number] #### [facility] [address] BNPon 10-03-2021 Natriuretic peptide B (Bld) [Mass/Vol] 75.0 pg/mL Normal <=900.0 [facility] Comment on above: Performed By: #### H STROPN #### [facility] [address] [place] [address] Dr. Kulwant Brennan CARDIAC MAYELIN ADMITon 022 CK [Catalytic activity/Vol] 142 U/L Normal 39-308 [facility] Comment on above: Performed By: #### H STROPN #### [facility] [address] [place] [address] [address] Kulwant Brennan CK.MB [Mass/Vol] 1.15 ng/mL Normal <=3.[address] [facility] Comment on above: Performed By: #### H STROPN #### [facility] [address] [place] [address] Dr. Kulwant Brennan HSTROP 4.0 pg/mL Normal 4.0-76.1 [facility] Comment on above: Result Comment: CUT- OFF POINTS HAVE BEEN ESTABLISHED BASED ON THE FOURTH UNIVERSAL DEFINITIONS OF MYOCARDIAL INFARCTION. THE UPPER REFERENCE LIMIT (URL) OF TROPONIN, DEFINED THE 99TH PERCENTILE OF cTnI DISTRIBUTION IN A REFERENCE POPULATION, HAS BEEN CONFIRMED THE DECISION THRESHOLD FOR CO DIAGNOSIS. Performed By: #### H STROPN #### [facility] [address] [place] [address] Dr. Kulwant Brennan EFRAIN 57 ng/mL Normal 16-96 [facility] Comment on above: Performed By: #### H STROPN #### [facility] [address] [place] [address] Dr. Kulwant Brennan CBC AUTO DIFFon 10-03-2021 BASO # 0.0 103/ul Normal 0.0-0.1 [facility] Comment on above: Performed By: #### H STROPN #### [facility] [address] [place] [address] Dr. Kulwant Brennan Basophils/100 WBC (Bld) 0.4 % Normal 0.2-2.0 [facility] Comment on above: Performed By: #### H STROPN #### [facility] [address] [place] [address] Dr. Kulwant Brennan EO # 0.2 103/ul Normal 0.0-0.7 [facility] Comment on above: Performed By: #### H STROPN #### [facility] [address] [place] [address] Dr. Kulwant Brennan Eosinophils/100 WBC (Bld) 2.6 % Normal 0.9-7.0 [facility] Comment on above: Performed By: #### H STROPN #### [facility] [address] [place] [address] Dr. Kulwant Brennan Erythrocyte distribution width (RBC) [Ratio] 14.6 % Normal 11.0-15.0 [facility] Comment on above: Performed By: #### H STROPN #### [facility] [address] [place] [address] Dr. Kulwant Brennan Hematocrit (Bld) [Volume fraction] 43.0 % Normal 42.0-54.0 [facility] Comment on above: Performed By: #### H STROPN #### [facility] [address] [place] [address] Dr. Kulwant Brennan Hemoglobin (Bld) [Mass/Vol] 13.6 g/dL Critically low 14.0-18.0 [facility] Comment on above: Performed By: #### H STROPN #### [facility] [address] [place] [address] Dr. Kulwant Brennan IG # 0.03 10e3/ul Normal 0.00-0.03 [facility] Comment on above: Performed By: #### H STROPN #### [facility] [address] [place] [address] Dr. Kulwant Brennan IG % 0.4 % Normal 0.0-0.5 [facility] Comment on above: Performed By: #### H STROPN #### [facility] [address] [place] [address] Dr. Kulwant Brennan LYMPH # 1.8 103/ul Normal 1.2-3.8 [facility] Comment on above: Performed By: #### H STROPN #### [facility] [address] [place] [address] [address] Kulwant Brennan Lymphocytes/100 WBC (Bld) 25.3 % Normal 20.5-60.0 [facility] Comment on above: Performed By: #### H STROPN #### [facility] [address] [place] [address] [address] Kulwant Brennan MANUAL DIFF REQ NO Normal The [facility] Comment on above: Performed By: #### H STROPN #### [facility] [address] [place] [address] [address] Kulwant Brennan MCH (RBC) [Entitic mass] 27.1 pg Normal 25.9-34.0 [facility] Comment on above: Performed By: #### H STROPN #### [facility] [address] [place] [address] Dr. Kulwant Brennan MCHC (RBC) [Mass/Vol] 31.6 g/dL Normal 29.9-35.2 [facility] Comment on above: Performed By: #### H STROPN #### [facility] [address] [place] [address] Dr. Kulwant Brennan MCV (RBC) [Entitic vol] 85.8 fL Normal 80.0-94.0 [facility] Comment on above: Performed By: #### H STROPN #### [facility] [address] [place] [address] Dr. Kulwant Brennan MONO # 0.8 103/ul Normal 0.3-0.8 [facility] Comment on above: Performed By: #### H STROPN #### [facility] [address] [place] [address] [address] Kulwant Brennan Monocytes/100 WBC (Bld) 11.9 % Normal 1.7-12.0 [facility] Comment on above: Performed By: #### H STROPN #### [facility] [address] [place] [address] Dr. Kulwant Brennan NEUT # 4.1 103/ul Normal 1.4-6.5 [facility] Comment on above: Performed By: #### H STROPN #### [facility] [address] [place] [address] [address] Kulwant Brennan Neutrophils/100 WBC (Bld) 59.4 % Normal 43.0-75.0 [facility] Comment on above: Performed By: #### H STROPN #### [facility] [address] [place] [address] Dr. Kulwant Brennan Platelet mean volume (Bld) [Entitic vol] 9.8 fL Normal 9.5-13.5 [facility] Comment on above: Performed By: #### H STROPN #### [facility] [address] [place] [address] [address] Kulwant Brennan PLT 201 103/ul Normal 150-450 [facility] Comment on above: Performed By: #### H STROPN #### [facility] [address] [place] [address] Dr. Kulwant Brennan RBC 5.01 106/ul Normal 4.70-6.10 [facility] Comment on above: Performed By: #### H STROPN #### [facility] [address] [place] [address] Dr. Kulwant Brennan WBC 7.0 103/ul Normal 4.0-11.0 [facility] Comment on above: Performed By: #### H STROPN #### [facility] [address] [place] [address] HEAD WO CONon 10-03-2021 CT HEAD [...] DONNELL DU Date: 2021-10-03 11:41 Normal [facility] CTA CHEST WO W CONon 022 [...] DONNELL DU Date: 2021-10-03 11:50 Normal [facility] ER URINE PROFILEon 2 Bilirubin Ql (U) Negative Normal NEGATIVE [facility] Comment on above: Performed By: #### H STROPN #### [facility] [address] [place] [address] [address] Kulwant Brennan Clarity (U) CLEAR Normal CLEAR [facility] Comment on above: Performed By: #### H STROPN #### [facility] [address] [place] [address] [address] Kulwant Brennan Color (U) LT. YELLOW Normal YELLOW [facility] Comment on above: Performed By: #### H STROPN #### [facility] [address] [place] [address] [address] Kulwant SCHWARTZ A micrscopic examina tion will be performed if indicated. Normal [facility] Comment on above: Performed By: #### H STROPN #### [facility] [address] [place] [address] Dr. Kulwant Brennan Glucose Ql (U) Negative Normal NEGATIVE [facility] Comment on above: Performed By: #### H STROPN #### [facility] [address] [place] [address] [address] Kulwant Brennan Hemoglobin Ql (U) Negative Normal NEGATIVE [facility] Comment on above: Performed By: #### H STROPN #### [facility] [address] [place] [address] Dr. Kulwant Brennan Ketones Ql (U) Negative Normal NEGATIVE [facility] Comment on above: Performed By: #### H STROPN #### [facility] [address] [place] [address] Dr. Kulwant Brennan LEUKOCYTES Negative Normal NEGATIVE [facility] Comment on above: Performed By: #### H STROPN #### [facility] [address] [place] [address] Dr. Kulwant Brennan Nitrite Ql (U) Negative Normal NEGATIVE [facility] Comment on above: Performed By: #### H STROPN #### [facility] [address] [place] [address] Dr. Kulwant Brennan pH (U) 5.5 [pH] Normal 5-9 [facility] Comment on above: Performed By: #### H STROPN #### [facility] [address] [place] [address] Dr. Kulwant Brennan SPEC GRAVITY 1.025 Normal 1.005-<=1. 025 [facility] Comment on above: Performed By: #### H STROPN #### [facility] [address] [place] [address] Dr. Kulwant Brennan UA PROTEIN Negative Normal NEGATIVE/ TRACE [facility] Comment on above: Performed By: #### H STROPN #### [facility] [address] [place] [address] Dr. Kulwant Brennan UR MICRO IND NOT INDICATED Normal [facility] Comment on above: Performed By: #### H STROPN #### [facility] [address] [place] [address] Dr. Kulwant Brennan Urobilinogen Qn (U) 0.2 {Luis'U}/dL Normal 0.2 - 1. 0 [facility] Comment on above: Performed By: #### H STROPN #### [facility] [address] [place] [address] Dr. Kulwant Brennan PROF 14(COMP METB)on 022 Albumin [Mass/Vol] 3.9 g/dL Normal 3.4-5.0 [facility] Comment on above: Performed By: #### H STROPN #### [facility] [address] [place] [address] Dr. Kulwant Brennan Albumin/Globulin [Mass ratio] 1.0 {ratio} Normal [facility] Comment on above: Performed By: #### H STROPN #### [facility] [address] [place] [address] Dr. Kulwant Brennan ALP [Catalytic activity/Vol] 59 U/L Normal 46-116 [facility] Comment on above: Performed By: #### H STROPN #### [facility] [address] [place] [address] Dr. Kulwant Brennan ALT [Catalytic activity/Vol] 30 U/L Normal 16-63 [facility] Comment on above: Performed By: #### H STROPN #### [facility] [address] [place] [address] Dr. Kulwant Brennan Anion gap [Moles/Vol] 13.4 mmol/L Normal [facility] Comment on above: Performed By: #### H STROPN #### [facility] [address] [place] [address] Dr. Kulwant Brennan AST [Catalytic activity/Vol] 14 U/L Critically low 15-37 [facility] Comment on above: Performed By: #### H STROPN #### [facility] [address] [place] [address] Dr. Kulwant Brennan Bilirubin [Mass/Vol] 0.6 mg/dL Normal 0.2-1.0 [facility] Comment on above: Performed By: #### H STROPN #### [facility] [address] [place] [address] [address] Kulwant Brennan Calcium [Mass/Vol] 7.6 mg/dL Critically low 8.5-10.1 [facility] Comment on above: Performed By: #### H STROPN #### [facility] [address] [place] [address] [address] uKlwant Brennan Chloride [Moles/Vol] 107 mmol/L Normal 98-107 [facility] Comment on above: Performed By: #### H STROPN #### [facility] [address] [place] [address] Dr. Kulwant Brennan CO2 [Moles/Vol] 24.4 mmol/L Normal 21.0-32.0 [facility] Comment on above: Performed By: #### H STROPN #### [facility] [address] [place] [address] [address] Kulwant Brennan Creatinine [Mass/Vol] 1.36 mg/dL Critically high 0.70-1.30 [facility] Comment on above: Performed By: #### H STROPN #### [facility] [address] [place] [address] Dr. Kulwant Brennan EGFR-AF MONTSERRATIAN >60 Normal >=60 [facility] Comment on above: Performed By: #### H STROPN #### [facility] [address] [place] [address] [address] Kulwant Brennan EGFR-NON AF MONTSERRATIAN 52 mL/min/1.73m2 Critically low >=60 [facility] Comment on above: Performed By: #### H STROPN #### [facility] [address] [place] [address] Dr. Kulwant Brennan Globulin (S) [Mass/Vol] 3.8 g/dL Normal [facility] Comment on above: Performed By: #### H STROPN #### [facility] [address] [place] [address] Dr. Kulwant Brennan Glucose [Mass/Vol] 99 mg/dL Normal 74-106 [facility] Comment on above: Performed By: #### H STROPN #### [facility] [address] [place] [address] [address] Kulwant Brennan Potassium [Moles/Vol] 3.8 mmol/L Normal 3.5-5.1 [facility] Comment on above: Performed By: #### H STROPN #### [facility] [address] [place] [address] [address] Kulwant Brennan Protein [Mass/Vol] 7.7 g/dL Normal 6.4-8.2 [facility] Comment on above: Performed By: #### H STROPN #### [facility] [address] [place] [address] [address] Kulwant Brennan Sodium [Moles/Vol] 141 mmol/L Normal 136-145 [facility] Comment on above: Performed By: #### H STROPN #### [facility] [address] [place] [address] [address] Kulwant Brennan Urea nitrogen [Mass/Vol] 24.0 mg/dL Critically high 7.0-18.0 [facility] Comment on above: Performed By: #### H STROPN #### [facility] [address] [place] [address] [address] Kulwant Brennan Urea nitrogen/Creatinine [Mass ratio] 17.6 mg/mg Normal [facility] Comment on above: Performed By: #### H STROPN #### [facility] [address] [place] [address] [address] Kulwant Brennan PROTIMEon 10-03-2021 INR Coag (PPP) [Relative time] 1.04 {INR} Normal [facility] Comment on above: Performed By: #### P T, PTT ####[facility] [address] [place] [address]Dr. Kulwant Brennan INR GUIDELINES SEE BELOW Normal [facility] Comment on above: Result Comment: HAYDEE RED INR: 2.0 - 3.0 CONDITIONS NOT LISTED BELOW 2.5 - 3.5 FOR PROSTHETIC HEART VALVE REPLACEMENT 2.5 - 3.5 RECURRENT THROMBOSIS Performed By: #### P T, PTT ####[facility] [address] [place], [place] [address]Ff. Kulwant Brennan PT Coag (PPP) [Time] 11.2 s Normal 9.0-11.6 [facility] Comment on above: Performed By: #### P T, PTT ####[facility] [address] [place], [place] [address]HdDr. Kulwant Brennan PTTon 10-03-2021 aPTT Coag (Bld) [Time] 33.1 s Normal 22.3-36.2 [facility] Comment on above: Performed By: #### P T, PTT ####[facility] [address] [place], [place] [address]Um. Kulwant Brennan TROPONIN, HIGH SENSITIVITYon 10-03-2021 HSTROP 5.1 pg/mL Normal 4.0-76.1 [facility] Comment on above: Result Comment: CUT- OFF POINTS HAVE BEEN ESTABLISHED BASED ON THE FOURTH UNIVERSAL DEFINITIONS OF MYOCARDIAL INFARCTION. THE UPPER REFERENCE LIMIT (URL) OF TROPONIN, DEFINED THE 99TH PERCENTILE OF cTnI DISTRIBUTION IN A REFERENCE POPULATION, HAS BEEN CONFIRMED THE DECISION THRESHOLD FOR CO DIAGNOSIS. Performed By: #### H STROPN #### [facility] [address] [place], [place] [address] Dr. Kulwant Brennan VC VENOUS REFLUX RIOS LMTon 0 10-03-2021 VC VENOUS REFLUX RIOS LMT Patient: YOLI ANTUNEZ Exam Date: 10/03/2021 : 1955 Gender:M Ordering : YANDEL SHEN Admission #: [id number] Family : Order #: [id number] CLICK HERE TO VIEW EXAM RADIOLOGY REPORT [...] chronic thrombus visualized Compressibility: Normal Flow: Normal Quarrying Manager: Dist/med off PTV 2 mm, 0s reflux; [...] M.D. on 10/04/2021 at 12:09 Normal [facility] XR CHEST 1 Von 10-03-2021 XR CHEST [...] ELENA EMERY Date: 2021-10-03 13:00 Normal [facility] ANAon 09-29-2021 KYLE PATTERN NUCLEOLAR Normal [facility] Comment on above: Result Comment: The KHALIDA [...] authority. Performed By: #### 1 0196 #### [facility] [address] KYLE SCREEN 1:40 Normal <1:40,1:40 [facility] Comment on above: Result Comment: Test performed using KHALIDA IFA KYLE Hep-2 Test, a pre-standardized assay designed for the qualitative and semi-quantitative detection of antinuclear antibodies. Performed By: #### 1 0196 #### [facility] [address] [place] [address], [facility] C REACTIVE PROTEINon 022 CRP [Mass/Vol] 3.1 mg/L Normal 0.0-7.0 [facility] Comment on above: Performed By: #### 5 6101, [id number] #### [facility] [address] [place] [address], [facility] CYCLIC [place]INATED PEPTIDE [place] [id number] 09-29-2021 CYCLIC CIT PEP 4 Units Normal 0-19 [facility] Comment on above: Result Comment: INTE RPRETIVE [...] be monitored and testing repeated. Performed By: [facility] [address] [place] [id number] [place]: Jaz Villareal MD RHEUMATOID FACTOR SERUMon RA <20 Normal 0-20 [facility] Comment on above: Performed By: #### 5 6101, [id number] #### [facility] [address] SEDIMENTATION RATEon SED RATE 12 mm/hr High 0-10 [facility] Comment on above: Performed By: #### 5 6506 #### [facility] [address] US ANDREW DOP LEG BILon 022 US ANDREW DOP LEG RIOS EXAMINATION: US [...] ERICK DEL ANGEL Date: 2021-09-27 16:12 Normal [facility] CT Head or Brain w/o Contras t*on 05-23-2022 CT Head or Brain w/o Contrast* HISTORY: [...] by Hollis Cadet on 09/11/2021 1546 Normal [facility] Comprehensive Metabolic Pane julian 06-27-2021 Albumin [Mass/Vol] 4.9 g/dL Normal 3.6-5.1 [facility] Comment on above: Performed By: #### C MP #### [facility] [address] [place], [place] [id number] Albumin/Globulin [Mass ratio] 1.8 {ratio} Normal 1.0-2.5 [facility] Comment on above: Performed By: #### C MP #### [facility] [address] [place], [place] [id number] ALP [Catalytic activity/Vol] 83 U/L Normal 40-129 [facility] Comment on above: Performed By: #### C MP #### [facility] [address] [place], [place] [id number] ALT [Catalytic activity/Vol] 20 U/L Normal 9-46 [facility] Comment on above: Result Comment: 03/22 Female reference range changed. Performed By: #### C MP #### [facility] [address] [place], [place] [id number] Anion gap [Moles/Vol] 18 mmol/L Normal 12-20 [facility] Specialist Comment on above: Result Comment: Ruth ctive 04/27/2019 reference range changed. Performed By: #### C MP #### [facility] [address] [place], [place] [id number] AST [Catalytic activity/Vol] 18 U/L Normal 10-40 [facility] Comment on above: Performed By: #### C MP #### [facility] [address] [place], [place] [id number] Bilirubin [Mass/Vol] 0.33 mg/dL Normal 0.30-1.20 [facility] Comment on above: Performed By: #### C MP #### [facility] [address] [place], [place] [id number] BUN/CREA 20 Ratio Normal 6-22 [facility] Comment on above: Performed By: #### C MP #### [facility] [address] [place], [place] [id number] Calcium [Mass/Vol] 8.4 mg/dL Low 8.6-10.2 [facility] Comment on above: Performed By: #### C MP #### [facility] [address] [place], [place] [id number] Chloride [Moles/Vol] 106 mmol/L Normal 98-107 [facility] Comment on above: Performed By: #### C MP #### [facility] [address] [place], [place] [id number] CO2 [Moles/Vol] 24 mmol/L Normal 20-31 [facility] Comment on above: Performed By: #### C MP #### [facility] [address] [place], [place] [id number] Creatinine [Mass/Vol] 1.4 mg/dL Normal 0.7-1.4 [facility] Comment on above: Performed By: #### C MP #### [facility] [address] [place], [place] [id number] eGFRAA 59 mL/min/1.73m2 Low >60 [facility] Special[facility] Comment on above: Performed By: #### C MP #### [facility] [address] [place], [place] [id number] eGFRNAA 49 mL/min/1.73m2 Low >60 [facility] Specialist Comment on above: Performed By: #### C MP #### [facility] [address] [place], [place] [id number] Globulin (S) [Mass/Vol] 2.7 g/dL Normal 1.9-3.7 [facility] Comment on above: Performed By: #### C MP #### [facility] [address] [place], [place] [id number] Glucose [Mass/Vol] 98 mg/dL Normal 65-99 [facility] Comment on above: Result Comment: For FASTING Glucose --- ADA reference ranges: Normal 65-99 mg/dl Prediabetes 100-125 Diabetes >/= 126 Performed By: #### C MP #### [facility] [address] [place], [place] [id number] Potassium [Moles/Vol] 5.0 mmol/L Normal 3.5-5.5 [facility] Manager Comment on above: Performed By: #### C MP #### [facility] [address] [place], [place] [id number] Protein [Mass/Vol] 7.6 g/dL Normal 6.1-8.1 [facility] Comment on above: Performed By: #### C MP #### [facility] [address] [place], [place] [id number] Sodium [Moles/Vol] 143 mmol/L Normal 135-146 [facility] Application Manager Comment on above: Performed By: #### C MP #### [facility] [address] [place], [place] [id number] Urea nitrogen [Mass/Vol] 30 mg/dL High 7-25 [facility] Clinical Application Manager Comment on above: Performed By: #### C MP #### [facility] [address] [place], [place] [id number] Magnesiumon 06-07-2021 Magnesium [Mass/Vol] 2.0 mg/dL Normal 1.5-2.3 [facility] Clinical Application Manager Comment on above: Performed By: #### V ITD, MG, PHOS #### [facility] [address] [place] [id number] Parathyroid Hormone, Intacto n 06-07-2021 PTH 12.53 pg/mL Low 16.00-65.0 0 [facility] Clinical Application Manager Comment on above: Performed By: #### P TH* #### [facility] [address] [place], [place] [id number] Phosphoruson 06-07-2021 Phosphate [Mass/Vol] 4.3 mg/dL Normal 2.2-4.4 [facility] Clinical Application Manager Comment on above: Performed By: #### V MG DENNIS PHOS #### [facility] [address] [place], [place] [id number] Q - CALCIUM,IONIZEDon 2021 CALCIUM, IONIZED 4.0 mg/dL Low 4.8-5.6 [facility] Clinical Application Manager Comment on above: Order Comment: [facility] performed at: QPT, [facility], [address], [address] [place], [address], Pearl Diver: Janes Vasquez MDQuest Collection Date/Time: [id number] Results Received Date/Time: [id number] Reported Date/Time: Performed By: #### C FILIBERTO, CBCAD, TSH #### [facility] [address] [place], [place] [id number] Vitamin D 25-OHon 06-07-2021 VIT D 25 OH 27 ng/ml Low >29 [facility] Clinical Application Manager Comment on above: Result Comment: Merlene min D Status Deficiency <20 ng/mL Insufficiency 20-29 ng/mL Optimal 30-100 ng/mL Possible Toxicity >=150 ng/mL Performed By: #### V ITDMG PHOS #### [facility] [address] [place], [place] [id number] Complete Blood Count with Au to Diffon 06-06-2021 Basophils (Bld) [#/Vol] 0.04 10*3/uL Normal 0.00-0.20 [facility] Clinical Application Manager Comment on above: Performed By: #### C MP, CBCAD, TSH #### [facility] [address] [place], [place] [id number] Basophils/100 WBC (Bld) 0.6 % Normal [facility] Clinical Application Manager Comment on above: Performed By: #### C MP, CBCAD, TSH #### [facility] [address] [place], [place] [id number] Eosinophils (Bld) [#/Vol] 0.28 10*3/uL Normal 0.02-0.50 [facility] Clinical Application Manager Comment on above: Performed By: #### C MP, CBCAD, TSH #### [facility] [address] [place], [place] [id number] Eosinophils/100 WBC (Bld) 4.1 % Normal [facility] Specialist Comment on above: Performed By: #### C MP, CBCAD, TSH #### [facility] [address] [place], [place] [id number] Erythrocyte distribution width (RBC) [Ratio] 14.5 % Normal 11.0-15.0 [facility] Clinical Application Manager Comment on above: Performed By: #### C MP, CBCAD, TSH #### [facility] [address] [place], [place] [id number] Hematocrit (Bld) [Volume fraction] 43.0 % Normal 38.5-50.0 [facility] Clinical Application Manager Comment on above: Performed By: #### C MP, CBCAD, TSH #### [facility] [address] [place], [place] [id number] Hemoglobin (Bld) [Mass/Vol] 13.7 g/dL Normal 13.0-17.1 [facility] Clinical Application Manager Comment on above: Performed By: #### C MP, CBCAD, TSH #### [facility] [address] [place], [place] [id number] Lymphocytes (Bld) [#/Vol] 1.6 10*3/uL Normal 0.9-3.9 [facility] Clinical Application Manager Comment on above: Performed By: #### C MP, CBCAD, TSH #### [facility] [address] [place], [place] [id number] Lymphocytes/100 WBC (Bld) 22.6 % Normal [facility] Clinical Application Manager Comment on above: Performed By: #### C MP, CBCAD, TSH #### [facility] [address] [place], [place] [id number] MCH (RBC) [Entitic mass] 26.1 pg Low 27.0-33.0 [facility] Clinical Application Manager Comment on above: Performed By: #### C MP, CBCAD, TSH #### [facility] [address] [place], [place] [id number] MCHC (RBC) [Mass/Vol] 31.9 g/dL Low 32.0-36.0 [facility] Clinical Application Manager Comment on above: Performed By: #### C MP, CBCAD, TSH #### [facility] [address] [place], [place] [id number] MCV (RBC) [Entitic vol] 82 fL Normal 80-100 [facility] Specialist Comment on above: Performed By: #### C MP, CBCAD, TSH #### [facility] [address] [place], [place] [id number] Monocytes (Bld) [#/Vol] 0.7 10*3/uL Normal 0.2-0.9 [facility] Specialist Comment on above: Performed By: #### C MP, CBCAD, TSH #### [facility] [address] [place], [place] [id number] Monocytes/100 WBC (Bld) 10.1 % Normal [facility] Specialist Comment on above: Performed By: #### C MP, CBCAD, TSH #### [facility] [address] [place], [place] [id number] Neutrophils (Bld) [#/Vol] 4.3 10*3/uL Normal 1.5-7.8 [facility] Specialist Comment on above: Performed By: #### C MP, CBCAD, TSH #### [facility] [address] [place], [place] [id number] Neutrophils/100 WBC (Bld) 62.0 % Normal [facility] Specialist Comment on above: Performed By: #### C MP, CBCAD, TSH #### [facility] [address] [place], [place] [id number] Platelet mean volume (Bld) [Entitic vol] 10.90 fL Normal 7.50-12.50 [facility] Specialist Comment on above: Performed By: #### C MP, CBCAD, TSH #### [facility] [address] [facility] [place] [id number] Platelets (Bld) [#/Vol] 250 10*3/uL Normal 140-400 [facility] Specialist Comment on above: Performed By: #### C MP, CBCAD, TSH #### [facility] [address] [place], [place] [id number] RBC (Bld) [#/Vol] 5.25 10*6/uL Normal 4.20-5.80 [facility] Clinical Application Manager Comment on above: Performed By: #### C MP, CBCAD, TSH #### [facility] [address] [place], [place] [id number] RDW-SD 43.3 fL Normal 37.0-50.0 [facility] Specialist Comment on above: Performed By: #### C MP, CBCAD, TSH #### [facility] [address] [place], [place] [id number] WBC (Bld) [#/Vol] 6.9 10*3/uL Normal 3.8-11.0 [facility] Clinical Application Manager Comment on above: Performed By: #### C MP, CBCAD, TSH #### [facility] [address] [place], [place] [id number] Comprehensive Metabolic Pane julian 06-06-2021 Albumin [Mass/Vol] 4.7 g/dL Normal 3.6-5.1 [facility] Clinical Application Manager Comment on above: Performed By: #### C MP, CBCAD, TSH #### [facility] [address] [place], [place] [id number] Albumin/Globulin [Mass ratio] 1.8 {ratio} Normal 1.0-2.5 [facility] Specialist Comment on above: Performed By: #### C FILIBERTO, CBCAD, TSH #### [facility] [address] [place], [place] [id number] ALP [Catalytic activity/Vol] 87 U/L Normal 40-129 [facility] Specialist Comment on above: Performed By: #### C MP, CBCAD, TSH #### [facility] [address] [place], [place] [id number] ALT [Catalytic activity/Vol] 22 U/L Normal 9-46 [facility] Specialist Comment on above: Result Comment: 03/22 Female reference range changed. Performed By: #### C MP, CBCAD, TSH #### [facility] [address] [place], [place] [id number] Anion gap [Moles/Vol] 20 mmol/L Normal 12-20 [facility] Clinical Application Manager Comment on above: Result Comment: Effe ctive 04/27/2019 reference range changed. Performed By: #### C MP, CBCAD, TSH #### [facility] [address] [place], [place] [id number] AST [Catalytic activity/Vol] 18 U/L Normal 10-40 [facility] Comment on above: Performed By: #### C MP, CBCAD, TSH #### [facility] [address] [place], [place] [id number] BUN/CREA 19 Ratio Normal 6-22 [facility] Comment on above: Performed By: #### C FILIBERTO, CBCAD, TSH #### [facility] [address] [place], [place] [id number] Calcium [Mass/Vol] 7.4 mg/dL Low 8.6-10.2 [facility] Comment on above: Performed By: #### C FILIBERTO, CBCAD, TSH #### [facility] [address] [place], [place] [id number] Chloride [Moles/Vol] 106 mmol/L Normal 98-107 [facility] Comment on above: Performed By: #### C FILIBERTO, CBCAD, TSH #### [facility] [address] [place], [place] [id number] CO2 [Moles/Vol] 20 mmol/L Normal 20-31 [facility] Comment on above: Performed By: #### C FILIBERTO, CBCAD, TSH #### [facility] [address] [place], [place] [id number] Creatinine [Mass/Vol] 1.5 mg/dL High 0.7-1.4 [facility] Comment on above: Performed By: #### C FILIBERTO, CBCAD, TSH #### [facility] [address] [place], [place] [id number] eGFRAA 59 mL/min/1.73m2 Low >60 [facility] Specialist Comment on above: Performed By: #### C MP, CBCAD, TSH #### [facility] [address] [place], [place] [id number] eGFRNAA 48 mL/min/1.73m2 Low >60 [facility] Specialist Comment on above: Performed By: #### C FILIBERTO, CBCAD, TSH #### [facility] [address] [place], [place] [id number] Globulin (S) [Mass/Vol] 2.6 g/dL Normal 1.9-3.7 [facility] Clinical Application Manager Comment on above: Performed By: #### C MP, CBCAD, TSH #### [facility] [address] [place], [place] [id number] Glucose [Mass/Vol] 112 mg/dL High 65-99 [facility] Clinical Application Manager Comment on above: Result Comment: For FASTING Glucose --- ADA reference ranges: Normal 65-99 mg/dl Prediabetes 100-125 Diabetes >/= 126 Performed By: #### C MP, CBCAD, TSH #### [facility] [address] [place], [place] [id number] Potassium [Moles/Vol] 4.3 mmol/L Normal 3.5-5.5 [facility] Clinical Application Manager Comment on above: Performed By: #### C MP, CBCAD, TSH #### [facility] [address] [place], [place] [id number] Protein [Mass/Vol] 7.3 g/dL Normal 6.1-8.1 [facility] Clinical Application Manager Comment on above: Performed By: #### C MP, CBCAD, TSH #### [facility] [address] [place], [place] [id number] Sodium [Moles/Vol] 142 mmol/L Normal 135-146 [facility] Clinical Application Manager Comment on above: Performed By: #### C MP, CBCAD, TSH #### [facility] [address] [place], [place] [id number] TBIL <0.3 Normal [facility] Clinical Application Manager Comment on above: Performed By: #### C MP, CBCAD, TSH #### [facility] [address] [place], [place] [id number] Urea nitrogen [Mass/Vol] 27 mg/dL High 7-25 [facility] Clinical Application Manager Comment on above: Performed By: #### C MP, CBCAD, TSH #### [facility] [address] [place], [place] [id number] Q - TROPONIN Ion 06-06-2021 TROPONIN I 3 ng/L Normal < OR = 47 [facility] Clinical Application Manager Comment on above: Order Comment: [facility] performed at: [employer], [address] [place], [place] [address] Rd, [address] [facility], [place], [address], Pearl Diver: Janes Vasquez MDQuest Collection Date/Time: [id number] Results Received Date/Time: [id number] Reported Date/Time: Result Comment: In accord with published recommendations, serial testing of troponin I at intervals of 2 to 4 hours for up to 12 to 24 hours is suggested in order to corroborate a single troponin I result. An elevated troponin alone is not sufficient to make the diagnosis of CO. Performed By: #### C MP, CBCAD, TSH #### [facility] [address] [place], [place] [id number] TSHon 06-06-2021 TSH 0.917 uIU/mL Normal 0.400-4.50 0 [facility] Comment on above: Performed By: #### C MP, CBCAD, TSH #### [facility] [address] [place], [place] [id number] Coding Summary.on 10-27-2020 Coding Summary. [id number] Gh0bWw+P GhlYWQ+YK4QBCBxS95dhAUoqC7PJ 6aBPW0LOSXJQGJNRX8HEU1klDJ1D CyrA4ByqbPr HyzlrVVbXQ61SAh5QJU8dPquUGuw lN0lvEJxN4j3GhHuQP28eD22HLbl KFNrMsG4CbAqonkdjPNf I4kzFpAtnRVpUqc+PHRhYmxlIHdp GQTjIHpfLDCgDsKlvAhkRC7iFs0c ZGVyLWNvbGxhcHNlOiBj t0whRUIkHSizHW3knRlsY4JguLV6 NZVrc2r5No96xOU+KWHxURO8cCya XLodr748TtEst6woNTC0 lYIoVFxfJXP5A49bu3F5WMYjEOCc CRS6eRU9jM4plPhgylhhP0OqyPOv ArY8VPG1aMTqtH0ofOkj xzzbqR6yBgn+G27VLI7MXVSWCW7Q Jle2J8XsPufogPB+JO34EXAyVR61 lFZekTUph7gauTo9QiZy XXStTQD7iOhmQRmuc1UsORRxC18c bPQja1W9KYQmhFkwwKPhQlEhxOP7 jU1iPZmsdrsja8bdkwkv Qvmlo6clzq85hH15F23cNPriWKPl MDB0EEJmDQQawWfybb0gzW7iWr6+ UDdcx3oly9uocTl4IrIv NMDwczKliNyfIXU4n6NyBm23P2Yl sJhtx8FeDsc8xz72zVUen3F6uHT2 ZWqtEOCekT2jSZxjLqH1 DZAsTfXsxF71aZAsVOnfEq5gqQht iRvtAQ2wJKBestnvTVQtbX6dLYRx wRDsiVnkAP7lGHZzanot v640ItNnODR2EKJilSPoL1DahW0a LcLhAVPfKSFzM5QsvQMeOKgtL988 MGnhLoO2KQJwrwYzT7Wh EKTmcCexRlD7a8H8Wi3Ol3Aatjwp XGF0NFhgCXV8HfI1GlNfLjD1Q1Yv Rwa7SMPecRotCA7zR7Lh WBRwlhxzxkgryUU4LRDjQSIdmF61 aUGvQGpwXy1hh7Q7x812CMMyRYDh pX21Aw9adBgpPDMuwVYY mQ5gpnchq0qckmmxItDnYZDiGAt5 LLv4FCInpGhcTxJiXMY2DcZ6GXQ2 eNYqwQ4diZwixxkgpS6w Oyc+X23ntA4tEEI0FOQ0lflmCNCs ugClCJ86BD96Q9BaLfsthERvlIV+ DFXkvtQhfQteJQ9xYcIo a1uzi9AaLFhzB0UnAHNzNWlzXqx8 MTGzXUR5oCG4vP0mGJEgDFhvm0E5 tMA7B9XuvnJfsx5nl7ez HUBrIQvbY86wbXQcw5I2VVUnuEV3 YOZicBgxHrNkqD18Wkq+PGNvbGdy l7WxJmjgc3kkh0yffKf6 NjImFTBowtXkoGmsFWN7x6ZnGt35 N86uOAvvAZBmFUJeAWPlKMFmuAxq nj9axS4eYg1+PGNvbCB3 oNQ6nD0iLETbBeK2SWjmZ357ZjJt kFYwKxukt8bzo7vdcHu1IxYcITRw xdBidXrwVGC2d8FfGy35 S72eYGveCCWkDZEsFFYyPRZskZzh te0nqS1uYn5+KH3sb8phot84rB12 dHI+DVEbVBF0gNnqGQyy LDCwgS0hPYyiYgO1TDPtBbLrkZ05 yLKdPRxvVl9sqJhghSacNV2bPLNz smhns029UaZzv8krGOPh tWCrSNgxZGW6Z93tg9F7TQSiBHZu YNB5xUL0rD5ugJnlwwveeSSplYww dsFggVcaMJrfUWjwI205 IHRvcDsnPlBhdGllbnQgTmFtZTo8 T0IdOgl6HUUnfLotHS2rsMEoQCwv Cy2znCrxyEueOZ6rILBo hdpri521XvXqa2knMOTwxSBcTKpx QGH6T98ul3Q7TBHmGLTyCUU9vSB2 vF9svEzldkizzLCwuQuo vmPyhMxhNIocTYwdM327KIAyxPzk WiRimtOqKEHbxBY7QT72NR48zGXl b3J1lQM8O7DrJYPjjshf zltceHM0IBScYQSatU49Jb7tsEch Eo1uFUJzXZU8YRJenKBjT8FalX9p ArYqFROoPMElO9EibFTg TPavX221TFdzHaE1JBZlydMnP1Mg HGDbtWbzRvO7n0V9An9DS9N3SA59 JA15iWXwh8E1eLX3D7Kp FVRttwdensvjeZF1CBIzMIUuhN28 Uy7svOsyXu0oVSJhKWU8QXXjyGZi Q5TriW4sSfNeLOQjGEXl F7RgzPGfKLbnL857REpaMjQ2HOXw utXrF2HmXUTevJntSvH0o8C8Rg7V WGq0IA22HQ38yYGch7E4 lVC4X6VkXXAigtfffpylnHP8AEBf BFTotJ32Xw4qaZkdIu8eEBAoHMI1 HFMgfXTbF6SqkM4gAuPb UUToOIOlS3IkpRBtUMfvU006QCzi QiS6DLUwaaEbG8WrHGAlnWsrPdE0 h2A9Kt2THVSnKP03TZP2 eEI3CN81IA51K1BfNucurLHnaOL+ PHRhYmxlIHdpZHRoPScxMDAlJyBz vMfxDR0xPw5dMBQnFYBl fYejjHZgRyIql2lvACZbEUhoRE9v lWbgQ0OprLR5ONHbt7g2Mc09P83o E7UosZR+ZEFnyXV2yVF4 uM1oPaChXuC9YRhqB337VhOurVGg Vohld4wlr3gjhXn5NcE2DLEnowLs oKdzAUF3j8OuSv89M28c GJbjBMUxXHLsZRFmUQXcrNowkc1d lY0oLc3+YGMjqRO6jXH7lN0bWvHt PkS5DQgtO299TrTooRFc Fxkku3dsd6qjhOy5PdOxUYBnghBj aYwpBJA6o9ZiAc18Q8ShlMdte5Bh Ubr2vv73pHWav6H2oXY8 R6YnALPjneuxcMFyxMgyNN4hHQCp bzjeGADvfA3tTHHwY7m3GiIhEkN8 ZKfkJ4UicpB4UKUveQZp QJohEQJ1T92gt5D0YGClRCAxJZQ0 gVJ4eY7jfTkjxnwgeBVzjNznoeVd mCnlOPkjQNaiD632ALDv kQfeUJDvwU4yASNnbJGhgXsnHA5q NTBpbjsnPkFVRFJJVFNIIEpSLCBG GyLUIHJOU0eiMPzurAB+ VVMlEVQ9dYvsWGcuBOEokQ6xOZGp P2l8NdFdMjJ3IAqsT3FbGYQblcnr Qp42iK1jAjYqUfD7ANzq O9LinmX9VXGigKBqAPsbKLW3C03p t9F5NOMpVXXfIKT0nLE0xJ1ooSox bjogbGVmdDsgdmVydGlj YQnwHDhmY714CDCrbNqeGaOfNgOy GcU9HOQ3J6WmYsj3CWZlbPurOS5x iYPgVHfkVj0hdJjixCwr LQ7nGLFncgasZCSudO1uYAZhaHCz fIawAW6zNAXjfqzfj181FnLbTED1 GCMmzWDfI9LfpY1xGeTc KIUoLKBrK1NeoKEzVUtgB395FXrr MbO9HHNvqkLiV2NuSZFboOaeEsV2 h2K3Ap07CoREAALqztyk dGQ+LUGyOBN4nUntBXnzUHYnmD0f JMViC4h4CbEzFcK6HKtcR6BxHABz bapqNc39oY8eBfHnBdI6 DHmfB3EivtD0HLKrpHGnBNccKRR4 T71yt7L7LGUqOLTcXQR8pDX1iW4w bGlnbjogbGVmdDsgdmVy oYqjEVktWOulQ896NWJbuRmlNh1d jJR9D8QpUbp6PIWsiKjzCE6qkNXa QLinLd1caGyuqBbsUH0l EMPqftapAQJshP9nXVYibBSyeKmm MD7eMBWroyynw119YhXsXWJ9LUDn aRLhD3NdkL3oMiMuQCYa GTTzD2WsyZUjJPhdW210DPxwBfC3 YMXzmvKvH7IqGUYgoPwrOuJ1o0K1 Ma7SmSQvN4JfI4j6I9Xj PjwvdHI+XN12SIYbOJ01mIMmiSPy f1aurDu1KcXoJRAhPKV9hBneSAqy t5ObXDYqK97pfITan7B4 MVHroNfnvYQmJtAhhMG5wP6sUVck edyxo7ysmgiqZdanr3tbht45vR23 Q45uNKoiSOQlUDUrHLNu MLSwdOufwh0clU1mAv9+PGNvbCB3 gCX6bW9bEnVpGlP9PNzlP371UaLo fKGhMmiav9qjs8tjgQs4 DhYxBINrowZfbVvwXYW4f1HsBt70 J00cWChoUKTePNYfKZRlACXisXde us2grA2wGh3+QH1cu2qv ua15nK40fAO+ONDyAJD1tAnhZGlf SOMotR1sUImeHwW4LWAnKyWnxF53 vPHrZBfrKx7ukUootJbp YB0vGLNefgaur621EvLtj6ttPWSb dCRtJMidUCQ0S61tg0X8IFOzRGAd XAC2hIX1pJ4owGareboi uEPceRgovtKvkIqnROzhMFgoK401 ULSmzYfrRdQswEYeC8fwhbDQKI6l OjwvdGQ+ONMeVSO5jPbo AUxkPWRjhX4nGKXqI6v8TsSiQtT7 UViqH6EgtoZ1QDPmcIVrSYVurOLP yQ4ukhrym9qabdyfOuNb IZTfEXr0RGo4VKJkeLusZhJzLQC3 QgW8VXA2kJAziH6riPbfpyowmB8z Oyc+RklOOjwvdGQ+PHRk MNZ8jMzoYThvAGKozW3iKFMuB9m9 QcJgQcA5RJfuW4JedhW1WFRkrZEf COPurTSImS1bcvqwe7dv rfmaIxIyJETnNKc8ICw2BSPgoVtz UiImLKM8XiQ0CWF4kPJmkL8nrSkx bgrgmS6bHnl+TVJOOjwv dGQ+POBmGBW9sVqqLTvsZSZglQ6u ZCBwK7m2NdNkGuC3XTqiC4MoqcI3 DDZekPJuFTGwhGRRjU0o tuqhw2dekjoyFiLbTFYaLMk5ULp7 OBOumZmuLuOaOBQ1JfL8OMI6fSVx iG5zlIvcotvohG4wRwp+ DES7EZO8OC27BL74V4OmIljxsEEh bGU+PHRhYmxlIHdpZHRoPScxMDAl LpCdzQeyZX0rSy1vYBDn LWNv (more content not included)... Normal [facility] Auto Diffon 10-18-2020 Basophils/100 WBC (Bld) 1.2 % Normal 0.0-2.[address] [facility] Comment on above: Order Comment: Order Added by Discern Expert. Performed By: #### 2 [id number], [id number], [id number] ####[facility] [address] [place] [address] Basophils/Leukocyte s Auto (Bld) [Pure # fraction] 0.1 E9/L Normal 0.0-0.[address] [facility] Comment on above: Order Comment: Order Added by Discern Expert. Performed By: #### 2 [id number], [id number], [id number] ####[facility] [address] [address] Eosinophils/100 WBC (Bld) 1.8 % Normal 0.0-8.[address] [facility] Comment on above: Order Comment: Order Added by Discern Expert. Performed By: #### 2 041189, [id number], [id number] ####[address] [address] Eosinophils/Leukocy heladio Auto (Bld) [Pure # fraction] 0.1 E9/L Normal 0.0-0.[address] [facility] Comment on above: Order Comment: Order Added by Discern Expert. Performed By: #### 2 793056, [id number], [id number] ####[address] [address] Lymphocytes/100 WBC (Bld) 27.6 % Normal 14.0-50.[address] [facility] Comment on above: Order Comment: Order Added by Discern Expert. Performed By: #### 2 385881, [id number], [id number] ####[address] [address] Lymphocytes/Leukocy heladio Auto (Bld) [Pure # fraction] 2.1 E9/L Normal 1.0-4.[address] [facility] Comment on above: Order Comment: Order Added by Discern Expert. Performed By: #### 2 385461, 6843487, [id number] ####[address] [address] Monocytes/100 WBC (Bld) 9.6 % Normal 4.0-14.[address] [facility] Comment on above: Order Comment: Order Added by Discern Expert. Performed By: #### 2 703330, [id number], [id number] ####[address] [address] Monocytes/Leukocyte s Auto (Bld) [Pure # fraction] 0.7 E9/L Normal 0.2-1.[address] [facility] Comment on above: Order Comment: Order Added by Discern Expert. Performed By: #### 2 612518, 7455878, [id number] ####[facility] [address] [place] [address] Neutrophils/100 WBC (Bld) 59.8 % Normal 36.0-75.[address] [facility] Comment on above: Order Comment: Order Added by Discern Expert. Performed By: #### 2 075045, 7593479, [id number] ####[facility] [address] [place] [address] Neutrophils/Leukocy heladio Auto (Bld) [Pure # fraction] 4.6 E9/L Normal 2.0-7.[address] [facility] Comment on above: Order Comment: Order Added by Discern Expert. Performed By: #### 2 266492, 0821909, [id number] ####[facility] [address] [place] [address] BMPon 10-18-2020 Creatinine [Mass/Vol] 1.5 mg/dL High 0.5-1.[address] [facility] Comment on above: Performed By: #### 2 036617, [id number], [id number] ####[facility] [address] [place] [address] Urea nitrogen [Mass/Vol] 29 mg/dL High 5-[address] [facility] Comment on above: Performed By: #### 2 992628, [id number], [id number] ####[facility] [address] [place] [address] Urea nitrogen/Creatinine [Mass ratio] 19 No Units Normal 10-[address] [facility] Comment on above: Performed By: #### 2 689796, 19830041, [id number] ####[facility] [address] [place] [address] Anion gap [Moles/Vol] 11 mmol/L Normal 6-[address] [facility] Comment on above: Performed By: #### 2 631746, 10013386, [id number] ####[facility] [address] [place] [address] Calcium [Mass/Vol] 8.0 mg/dL Low 8.9-11.[address] [facility] Comment on above: Performed By: #### 2 278554, [id number], [id number] ####[facility] [address] [place] [address] Chloride [Moles/Vol] 107 mmol/L Normal 101-[address] [facility] Comment on above: Performed By: #### 2 005770, [id number], [id number] ####[facility] [address] [place] [address] CO2 [Moles/Vol] 24 mmol/L Normal 21-31 [facility] Comment on above: Performed By: #### 2 713434, [id number], [id number] ####[facility] [address] [place] [address] Glucose [Mass/Vol] 95 mg/dL Normal 55-[address] [facility] Comment on above: Result Comment: If t his glucose result represents a fasting glucose, interpretation should refer to the following reference range: 55-99 mg/dL Performed By: #### 2 512922, [id number], [id number] ####[facility] [address] [place] [address] Potassium [Moles/Vol] 3.9 mmol/L Normal 3.5-5.[address] [facility] Comment on above: Performed By: #### 2 788978, [id number], 7254274 ####[facility] [address] [place] [address] Sodium [Moles/Vol] 138 mmol/L Normal 135-[address] [facility] Comment on above: Performed By: #### 2 450689, [id number], 1923418 ####[facility] [address] [place] [address] CBC w/ Auto Diffon 1 Erythrocyte distribution width (RBC) [Ratio] 15.7 % High 10.9-14.[address] [facility] Comment on above: Performed By: #### 2 973539, 0865400, [id number] ####[facility] [address] [place] [address] Hematocrit (Bld) [Volume fraction] 39.9 % Normal 37.7-49.[address] [facility] Comment on above: Performed By: #### 2 931482, 5839438, [id number] ####[address] [address] Hemoglobin (Bld) [Mass/Vol] 13.3 g/dL Low 13.5-17.[address] [facility] Comment on above: Performed By: #### 2 921895, 3598566, [id number] ####[address] [address] MCH (RBC) [Entitic mass] 27.1 pg Normal 27.0-34.[address] [facility] Comment on above: Performed By: #### 2 705821, 4702792, 19378217 ####[address] [address] MCHC (RBC) [Mass/Vol] 33.3 g/dL Normal 31.4-36.[address] [facility] Comment on above: Performed By: #### 2 861043, 4275009, 99337653 ####[address] [address] MCV (RBC) [Entitic vol] 81.4 fL Normal 80.0-100.[address] [facility] Comment on above: Performed By: #### 2 595667, 9495413, 16159165 ####[address] [address] Platelet mean volume (Bld) [Entitic vol] 9.2 fL Normal 6.4-10.[address] [facility] Comment on above: Performed By: #### 2 523174, 1664794, 30644355 ####[address] [address] Platelets (Bld) [#/Vol] 223.0 E9/L Normal 150.0-500. [address] [facility] Comment on above: Performed By: #### 2 658311, 0901941, [id number] ####[facility] [address] [place] [address] RBC (Bld) [#/Vol] 4.9 E12/L Normal 4.3-5.[address] [facility] Comment on above: Performed By: #### 2 185513, 6469307, 06061610 ####[facility] [address] [place] [address] WBC corrected for nucl RBC Auto (Bld) [#/Vol] 7.6 E9/L Normal 4.0-11.[address] [facility] Comment on above: Performed By: #### 2 067870, 1834718, [id number] ####[facility] [address] [place] [address] Capillary Glucose POCon 09-21 Glucose [Mass/Vol] 118 mg/dL High 55-[address] [facility] Comment on above: Result Comment: Erika heart RN/ Performed By: #### 2 [id number] ####[facility] [address] [place] [address] Consent for Treatmenton 09-21 Consent for Treatment [id number]:[address] [facility] Discharge Instructionson Discharge Instructions [id number]:[address] [facility] ED Clinical Summaryon 2020 ED Clinical Summary (Inserted Image. Daya ble to display) [address] [address] ED Clinical Summary Person Information Name: YOLI ANTUNEZ JR [place] Age: 65 Years : 1955 Sex: Male Language: Jordanian PCP: RADHA BURRIS MD Marital Status: Visit [...] 10/18/2020 10:31:18 10/18/2020 10:31:18 10/18/2020 10:31:18 ADDRESS: [address] [place] [address] [id number] [facility] DOC NOTES: MEDICAL INFORMATION: Prescriptions Given: Medications [...] 3 days 10/21/2020 With: Address: When: RADHA FATUMA [address] [place] [address] [phone] [facility] ([employer] In 3 days DIAGNOSIS: AF (paroxysmal atrial fibrillation) Normal [facility] ED Note-Physicianon 10-19-19 ED Note-Physician Basic [...] taken off his metoprolol at that time. Data Analytics Developer is Dr. Modi at [facility]. Troponin negative. Electrolytes unremarkable. CBC with baseline [...] normal sinus rhythm. I called the patient's ged instructor Dr. Joshi. We discussed the patient's history, presentation, diagnostic work-up, vitals. After this discussion he reports the patient is okay to follow-up with him as an outpatient. He will call the patient and schedule a pacemaker visit. I discussed the ged instructor recommendations with the patient. He would like discharge home. I did offer the patient admission for further work-up and treatment for his chest discomfort which he declined. He does not wish to stay for second troponin level. Return precautions were discussed. He was instructed follow-up with his primary care doctor and ged instructor. Patient expresses understanding of agreement this plan. The patient was discharged home. Oscar Sandoval ,DO Assessment/Plan AF (paroxysmal atrial fibrillation) (I48.0: Paroxysmal [...] IV Disposit (more content not included)... Normal [facility] Comment on above: Result Comment: Elec [...] diagnosed with: ? Electrocardiogram (ECG). ? Ambulatory vehicle monitor technician. This device records your heartbeats for 24 [...] a stroke (more content not included)... Normal [facility] ED Patient Summaryon 021 ED Patient Summary (Inserted Image. Daya ble to display) [place] [id number] Patient Discharge Instructions Person Information Name: CATHERINECARINEHarini MARCELLOYOLI M Age: 65 Years Arrival Date: 10/18/2020 07:56:12 Discharge Diagnosis: AF (paroxysmal atrial fibrillation) Primary Care Physician: RADHA BURRIS MD Provider Information Primary Provider: Oscar Sandoval DO Advanced Lead Injection Mold Technician:None The exam and treatment you received in the Emergency Department were for an urgent problem and are not intended as complete care. It is important that you follow up with a doctor, nurse practitioner, or physician?s stores assistant for ongoing care. If your symptoms [...] days 10/21/2020 With: Address: When: RADHA BURRIS [facility] [place], [place] [id number] Business (1) In 3 days In the event that this physician does not participate in your insurance network, please consult with your insurance company to find a nearby participating provider. Patient Education Materials: Atrial Fibrillation A MESSAGE TO ALL PATIENTS REGARDING OPIOIDS PRESCRIPTION OPIOIDS: WHAT YOU NEED TO KNOW Prescription opioids can be used to help relieve cxefdbir-ge-ajzbir pain and are often prescribed following a [...] your heal (more content not included)... Normal [facility] Magnesiumon 10-18-2020 Magnesium [Mass/Vol] 2.0 mg/dL Normal 1.3-2.[address] [facility] Comment on above: Performed By: #### 2 [id number], [id number], [id number] ####[facility] [address] [place] [address] Troponin 0 Hr.on 10-18-2020 Troponin I.cardiac [Mass/Vol] 3.00 pg/mL Low 15.90-38.[address] [facility] Comment on above: Result Comment: The 95% CI (Confidence Interval) PPV (Positive Predictive Value) for myocardial infarction in females is 38 pg/mL, in males 51 pg/mL. The results should be used in conjunction with clinical conditions of myocardial infarction. (Access High Sensitivity Troponin I Instructions For Use, Bret Leonardo, November 2017) Performed By: #### 2 [id number], [id number], [id number] ####[facility] [address] [place] [address] XR Chest Single Viewon 10-18 XR Chest [...] FINAL REPORT Dictated: 10/18/2020 9:17 am Fer Nava MD, V. Signed (Electronic Signature): 10/18/2020 9:17 am Signed by: Fer Nava MD, V. Transcribed by: MALINI Technologist: JUWAN Normal [facility] eGFRon 10-18-2020 GFR/1.73 sq M.predicted among blacks MDRD (S/P/Bld) [Vol rate/Area] 57 mL/min/1.73 m2 Low >=[address] [facility] Comment on above: Order Comment: Order added by Discern Expert. Result Comment: eGFR is race adjusted. AA=. Performed By: #### 2 [id number], [id number], [id number] ####[facility] [address] [place] [address] GFR/1.73 sq M.predicted among non-blacks MDRD (S/P/Bld) [Vol rate/Area] 47 mL/min/1.73 m2 Low >=[address] [facility] Comment on above: Order Comment: Order added by Discern Expert. Result Comment: Biometrics Specialist nikki kidney disease could be indicated at eGFR's of less than 60 mL/min/1.73m2. Kidney failure is indicated at less than 15 mL/min/1.73m2. Performed By: #### 2 [id number], [id number], [id number] ####[facility] [address] [place] [address] Coding Summary.on 09-22-2020 Coding Summary. [id number] Gh0bWw+P GhlYWQ+VT9XHUEaF73azRDolD4XR 7pABR3OTWZEDRAMSZ8AAX5vpFN3M FscS3EaxsSg MiyccKCzNM62EFr1GWW1cJyqFEvj tQ5hpXOoG1w3IjGtNI80nD05PYrx ZQHdLkI9KkGfcqdszIMj S8cgOjScnLYgAze+PHRhYmxlIHdp BRVtZPeaIZPsYmXdnJtoLK3rUw8w ZGVyLWNvbGxhcHNlOiBj z5gjZEUbFSuyJK9qnGhjG8MrxGW8 ATJtf0g9Np77bAX+WFMsYJV6jEcs SPmvo047VcAqw3yyNOR7 aGToTYbyWHI3P27qg3A6CSAqXTLf DVS8pZF8nY0ziRqkmvryH8NbpKEy DqX2RJL7pTPwkB2qsJuw bsmxnT2lAqx+M18ZSP2FGRKBYW5V Jnt3S8HjAferpTX+HV93YZUqHJ58 bWNrlIKwd3wrfXw7RrHp VCTnSTR8uIxtYDfnw5ZwGXDkD62n wCEmx7W6EDQujGippAAbSoSjqFW5 pT0xJGkkldajl8ceeghq Xfupm6ffdp27yK45S70dBDlwHXZv HFF9FNFmHARhmGmlct3ztR4iVn5+ CZiyj1upp7abxNm7ZiKr AYKspkHdvJahSSS5l8PnLp70M7Bg vCmgt3FlXnp3xs31cNCmq1V3hYR5 KYmuEESkcJ3tIMnnVsK9 HCQlPzVkeO41bYMpJDwrDj9knToa mPspVN5bFLTiykvsZUKsaZ2kMUVs nESbqBuwUM8yUUVmsuux d550LyRaWNE7TSUpnRHxL6PdeC8r BvXvEVNvFJVlR5JamIVxTLwgM545 UIujUlR6ZIRmemBtU2Xx XUEubElyWhR4j1J8Gk9Uq8Pbyshf EKL4BPmsARY5TdQlPuKjVpJ0C2Kw Wtg5PHFtyErsUD5aY8Zy HQYigwsudyetfNU5IICePWGoyQ10 aHTwEDmbZd2hk9Z9p521CSNkCLZc oH53Jy3voTsaICYygOPE lR8drwwhm6xqxvbsHyWpHTWoBEn0 XVa1JDNegKskJnReRCD4KfP4VBK9 eJKgkR0fdAofmeblaT3k Oyc+Y12dwT9gJZQ5IJK8dtbfZUBd bxNiBU65CM85F8QpVmjeaMLwuSL+ FUGvauTujQfeJM7oNfCx j8eze0DsOKczI9VdLRAvKWicRif9 TBMpXEN5jDC8kH1gUMUaJNetx1T8 eFV1R2XbwnXgbq5ts3pj GAKhRStdW93txUCix6E3ZYVotGZ6 DSJosGgoTbWxqT65Rhp+PGNvbGdy y6RmGvqmd8emt5bleMf2 PyPkYVYrkbSdzCkcCHA0e9XdYc94 Z84xZLwrENJrHNVkYYAlIZXcuHhq wm6aqK9sFu7+PGNvbCB3 vYI3oL3oXKMqCmP5HDbrC792QyAd yZWuYynoz2gfp7yxdXx8HgJsXUHp kbJdkMxuTZW7h4OsDx93 O75yWHyzGBZaYFRdCPKtPLGehCmt iq8pqU8fNn5+TQ8eu1aegh10pC86 dHI+UMEmOUA5wUrjVOcf LZTptN1bSYbsYfH4NCVzSvJjoJ82 tXQnJGaeZt7vrQdouCfyEL1fFECj udhjr223NmNqj2vuCENm eUCxNOjdPKS1L82rx8N3HQOkPORi NIN0iLA4hH2wnGbfffldhCAsgYae bpAyiFhxMBzoTDddE717 IHRvcDsnPlBhdGllbnQgTmFtZTo8 X0YiJaj1WNEwzSyoIH6bfBAwIUhr He7tnUcisCdlNW6wHPYb hocqo076JtOrl4kiWHLyoLGwRHyo DOT0O85jb7B1SBJvGLOmGGI8kKG5 hP0eePfglsjqeUGrjYyo qjTnfAahFYwcPLwuK916CBErdIij MlSrifAbKBQlwOB2BQ32NB39cJHz k0B0jMI8U2CkUCZpuvfu egufdSV4OOQcKKHebV87Xv9uiVzg Ud9xSTWnFZR8UVUtiQSoA6ZwsK7r MbNrIYShESIfD2MtvTWh GBueJ531EYmgJdE3ZVWkgrUsP7Fk PYNxbYthFoG5j1X6Ic3KG9H2RQ97 QP34yOIla1V2mNE8R4Fv WCRcwktniyozbEC3ZTLgIROywV38 Uc5zsHqaFq9lZIInPNE9GQArdYSo Z1MggC9uZlFpDGEjLHZb J1SedYFzHUxuL602UFmnKyO0MVMk tbVzI6ZtHJVmuNfzWgG3c7H4Rb4X IPl5LI42FM17aBTte0J2 sFI7M4CwCCDqyznuwkvolXN5NJGk JCTspS73My5lmYgoBb2xXBGrWWV4 RQTfwCCkG9DggM3fNaIs JQNuBGFaL5BifHEdQNbjA855CBnm UrM0SFWjhfMgD0WmWGGcsCopSeZ4 b9Q7Qb6SNCGoLB69SGN4 bNY6JQ90ZD57F8JcRvbymKKrqME+ PHRhYmxlIHdpZHRoPScxMDAlJyBz eAnkZD0wXq9lCMCgDSUy kXoltDZnBaHyl4nqATCtKJepWU9n lTzgH5CguGM6HDAlj0k9Oj59W80x K8FxmBL+KGOktCB2tMK8 iD3zMnLqUxV8ZMkaV212WqYvzDTl Ycdlk6nqv7xsqMw7DrE3NXEkynUy iYedPPT5i2IwVt61A79u ZMwyQRIvUUWtDDKdWDIesFuqmm9v qY9jWd7+WDTocUF8rCX5dU2tJrUx MqJ0QEkcE164BkMbzWUq Ocigt8bdf9qqfJk1CuQjMNErtbKs eAjgXWN4u8PeZp47I6HmeKqjd0Lt Jsw9dk91nPTyw9E9yGL0 T7CjUWRqblannVHusLliVL5uSDGd rkivOKOrrS2sCEVnR9m8JqBtVzG7 DHqoU9GuawX8WKOgqQAs BKziHEC8O46og9Z1LZSdZTPsTGB4 mYR3bR9ycJqzccckvTMhdJunhzSr kMfxULpwQDwsC430NVSg kObpQYOniF6hFTKfdZBdtLdcXJ0r NTBpbjsnPkFVRFJJVFNIIEpSLCBG DlUFUXXCI6yoWVffmQK+ IYKyKCU4gCbdAMdoKAAzxT3rKEFx L3a7DzCwYwB0QCrrJ4XbMEXguwvt Mf45aE5wZnPaNwR3ZCag R5AfzzR1QUOdnUSuPUklTMC5P66q e5I4EVNuDOOdCLL9bIT0sB7byLix bjogbGVmdDsgdmVydGlj MCthOZaqM747BQDalRlpLaVyRxNq XgR5ZCP8S0YjKqk2MHGliOoeBA0l rHUkTUugVz1ebFhnkXlg IF9eUTByfrkvVXUxcT8aBXFfbXDk qQbsZX2bOWRoaguup576JoLkHLK7 RRXqeMLfE6EbqN9kYsJq LNWgXGLkB8NohTVwZPqqW309PKtj DrF1TQFqmuAdL8BkTUInpWslPiU8 b8R2Th99CxEVBBJrbyav dGQ+TSCvMJJ9zOyeSIflWUEdpI8c JNTaT3u1IoLmAbX0DWyrZ9CaNWGo ihjgHl73oQ6mHmBzVrW4 DQkrG6LcazR0EYVjxAVnUUijWGY1 K85ru4Z6YFUxDHUqCSS2kNT7nV2y bGlnbjogbGVmdDsgdmVy yFzzFObtRHrlQ716NLSlxZkxLg6g jEP7R7FzEpt5JMZbyGppEZ4saUEs OKczAg1kjOqruGqmPW3f IGOdndnlUYTrdK3yCASikVArcPxo YW5aVKKwtvzga072VbVcCJE4NHDs cBFtO6FfxD6vRaXkYMKu IAJaE1LafJCjTJveP678XOzkNdD4 IAFmczAnW0DsIUWdhMdbCuM6y5I2 Lz4IqQFdG8FgD4n9F5Cs PjwvdHI+ZH39KGQlCN77eBEnjRTb t6yrsNi3OxAuLJVrVPG7aPnsABhc j4DxCNWmE75jsETun9F9 MHXgtDfmkRKgEeTxgQO8bO1oBJiq diuew7wwdhquTnnbm7qdpn12lW91 P41uKDrjTFXxITLrEPJh OVGhwNukmy2kvI3tSi0+PGNvbCB3 tDR2oF3wMdWyAeP5DNycD521JiCi iKHhQrfwv9afq9zxkXx9 LpIfBPItajRhgMcgPKT4k7EeNj32 V18mELnnUMGtMLTySFDuKLFdvZhu kj9wcI1aXr5+HH3ev0tq qk28oR73uCW+TQToAUT1dFmxAHss XWXkwQ5xXGujQjV9NAXsRoQulQ68 lVTzZIprVt9jlWhjtUqf SH4tVKRxnzwap628MaGqz2kgNPIe fKEhZYffXMV1W39gx9N2OZZdTQVh TZC7dIT0wH4lmQafgqwa yLDtlHiqvjYtqJyyBAajNMtlK781 IVDigAffCrXqtZQbA2gytkILMA6e OjwvdGQ+KDVbTBY8dMce XMmiLBStyM6fKKBtA7c7TcXxBfR7 BDgpO4MlusO5CHRrfNXsMZTaxYFQ eX5brzsot8gelkfbIdVq SHDmUIp3PHj4HTTxgEsmPcOaHDR0 SnU0BPG8gLAoaQ0maAthoxawjS8z Oyc+RklOOjwvdGQ+PHRk NAV1pQpkOHzpPYFfyY0sZMJvO5v5 NdPfRoH6YLlyI7AuarR2ZJSvwMVu YTDztIJHaT9jqsbbg0rv xbdkBfUxASAdGPj8VHq8GFNlnLjz RqXyRII2NdC4EMY0yXGheE1zhMdc rbqxwZ4rJsw+TVJOOjwv dGQ+SRYcUWB1pXbuBZyiAHBudC3q XMVqY8x6UyEmBxB7GWboM2RldbO0 BSQrdNZdDYFqjNNPiF9h biiek6rfzzrnTsJfULErLMv0FJq0 LVKdbDptBdAvJMU2PlQ6BSO0yVOu oL2oaIpcxorlzM4yNzc+ ZMO0BEZ4MN92IA08K0PiHeuzvREr bGU+PHRhYmxlIHdpZHRoPScxMDAl QfCrgApkGM5aKb3zBMRe LWNv (more content not included)... Normal [facility] Auto Diffon 09-13-2020 Basophils/100 WBC (Bld) 0.6 % Normal 0.0-2.[address] [facility] Comment on above: Order Comment: Order Added by Discern Expert. Performed By: #### 1 [id number], 1253767, 06528378, 7384964, 4248823 #### [facility] [address] [place] [address] Basophils/Leukocyte s Auto (Bld) [Pure # fraction] 0.0 E9/L Normal 0.0-0.[address] [facility] Comment on above: Order Comment: Order Added by Discern Expert. Performed By: #### 1 4413949, 2229100, 67966077, 1612904, 5035253 #### [facility] [address] [place] [address] Eosinophils/100 WBC (Bld) 2.9 % Normal 0.0-8.[address] [facility] Comment on above: Order Comment: Order Added by Discern Expert. Performed By: #### 1 3702023, 7613355, 92703235, 1343717, 4323928 #### [facility] [address] [place] [address] Eosinophils/Leukocy heladio Auto (Bld) [Pure # fraction] 0.2 E9/L Normal 0.0-0.[address] [facility] Comment on above: Order Comment: Order Added by Discern Expert. Performed By: #### 1 6051281, 4694988, 41152030, 8286527, 4280230 #### [facility] [address] [place] [address] Lymphocytes/100 WBC (Bld) 27.2 % Normal 14.0-50.[address] [facility] Comment on above: Order Comment: Order Added by Discern Expert. Performed By: #### 1 8414122, 3843507, 09948081, 8224164, 2991162 #### [facility] [address] [place] [address] Lymphocytes/Leukocy heladio Auto (Bld) [Pure # fraction] 2.0 E9/L Normal 1.0-4.[address] [facility] Comment on above: Order Comment: Order Added by Discern Expert. Performed By: #### 1 5157553, 3423708, 26752041, 2714546, 3433485 #### [facility] [address] [place] [address] Monocytes/100 WBC (Bld) 7.9 % Normal 4.0-14.[address] [facility] Comment on above: Order Comment: Order Added by Discern Expert. Performed By: #### 1 7472665, 7415935, 31587339, 9165021, 9698452 #### [facility] [address] [place] [address] Monocytes/Leukocyte s Auto (Bld) [Pure # fraction] 0.6 E9/L Normal 0.2-1.[address] [facility] Comment on above: Order Comment: Order Added by Discern Expert. Performed By: #### 1 2486752, 9432983, 97752912, 9743718, 9325639 #### [facility] [address] [place] [address] Neutrophils/100 WBC (Bld) 61.4 % Normal 36.0-75.[address] [facility] Comment on above: Order Comment: Order Added by Discern Expert. Performed By: #### 1 4579410, 8120331, 90497631, 5994073, 7581086 #### [facility] [address] [place] [address] Neutrophils/Leukocy heladio Auto (Bld) [Pure # fraction] 4.5 E9/L Normal 2.0-7.[address] [facility] Comment on above: Order Comment: Order Added by Discern Expert. Performed By: #### 1 8797691, 8048184, 03589170, 3690973, 2532354 #### [facility] [address] [place] [address] BMPon 09-13-2020 Anion gap [Moles/Vol] 13 mmol/L Normal 6-[address] [facility] Comment on above: Performed By: #### 1 8320544, 9649501, 27532219, 1580067, 3170945 #### [facility] [address] [place] [address] Calcium [Mass/Vol] 7.0 mg/dL Abnormal 8.9-11.[address] [facility] Comment on above: Result Comment: Crit ical Result verified by repeat analysis\Critical Result S_CA.0 Called to [facility] AT ER by QUAN SWEET And Read Back For Confirmation at: 09/13/2020 09:41:51 Performed By: #### 1 0828456, 8050268, 82396392, 5038591, 3662412 #### [facility] [address] [place] [address] Chloride [Moles/Vol] 110 mmol/L Normal 101-[address] [facility] Comment on above: Performed By: #### 1 0079137, 8779393, 35323742, 6584832, 6587527 #### [facility] [address] [place] [address] CO2 [Moles/Vol] 22 mmol/L Normal 21-31 [facility] Comment on above: Performed By: #### 1 3408339, 5282989, 56462420, 4721554, 0048658 #### [facility] [address] [place] [address] Creatinine [Mass/Vol] 1.5 mg/dL High 0.5-1.[address] [facility] Comment on above: Performed By: #### 1 6368372, 4337646, 44671069, 5999728, 3898461 #### [facility] [address] [place] [address] Glucose [Mass/Vol] 111 mg/dL Normal 55-[address] [facility] Comment on above: Result Comment: If t his glucose result represents a fasting glucose, interpretation should refer to the following reference range: 55-99 mg/dL Performed By: #### 1 5875595, 8316065, 64843866, 8132610, 5139857 #### [facility] [address] [place] [address] Potassium [Moles/Vol] 4.2 mmol/L Normal 3.5-5.[address] [facility] Comment on above: Performed By: #### 1 4453405, 2841289, 91386238, 0701589, 5333884 #### [facility] [address] [place] [address] Sodium [Moles/Vol] 141 mmol/L Normal 135-[address] [facility] Comment on above: Performed By: #### 1 3381708, 7342754, 01915397, 9685472, 8146671 #### [facility] [address] [place] [address] Urea nitrogen [Mass/Vol] 26 mg/dL High 5-[address] [facility] Comment on above: Performed By: #### 1 4018044, 9999083, 30441401, 1899516, 3461329 #### [facility] [address] [place] [address] Urea nitrogen/Creatinine [Mass ratio] 17 No Units Normal 10-[address] [facility] Comment on above: Performed By: #### 1 3863190, 3528785, 89427233, 6673568, 1224622 #### [facility] [address] [place] [address] CBC w/ Auto Diffon Erythrocyte distribution width (RBC) [Ratio] 15.3 % High 10.9-14.[address] [facility] Comment on above: Performed By: #### 1 7867231, 6550593, 25387978, 0760681, 5514685 #### [facility] [address] [place] [address] Hematocrit (Bld) [Volume fraction] 34.6 % Low 37.7-49.[address] [facility] Comment on above: Performed By: #### 1 4894581, 4794410, 72474769, 6379109, 9265334 #### [facility] [address] [place] [address] Hemoglobin (Bld) [Mass/Vol] 11.4 g/dL Low 13.5-17.[address] [facility] Comment on above: Performed By: #### 1 8614858, 6186398, 61199351, 4484233, 2721031 #### [facility] [address] [place] [address] MCH (RBC) [Entitic mass] 26.9 pg Low 27.0-34.[address] [facility] Comment on above: Performed By: #### 1 7504725, 1725174, 82439690, 8118650, 8290209 #### [facility] [address] [place] [address] MCHC (RBC) [Mass/Vol] 32.9 g/dL Normal 31.4-36.[address] [facility] Comment on above: Performed By: #### 1 0217437, 2894651, 01171150, 1665188, 7499247 #### [facility] [address] [place] [address] MCV (RBC) [Entitic vol] 81.8 fL Normal 80.0-100.[address] [facility] Comment on above: Performed By: #### 1 8714894, 1240324, 04745842, 0853430, 3825224 #### [facility] [address] [place] [address] Platelet mean volume (Bld) [Entitic vol] 9.4 fL Normal 6.4-10.[address] [facility] Comment on above: Performed By: #### 1 3700602, 9785109, 79150133, 1412897, 9333296 #### [facility] [address] [place] [address] Platelets (Bld) [#/Vol] 237.0 E9/L Normal 150.0-500. [address] [facility] Comment on above: Performed By: #### 1 2305402, 8498060, 41706975, 7706964, 8036499 #### [facility] [address] [place] [address] RBC (Bld) [#/Vol] 4.2 E12/L Low 4.3-5.[address] [facility] Comment on above: Performed By: #### 1 9988528, 1163098, 27292462, 1834624, 4943710 #### [facility] [address] [place] [address] WBC corrected for nucl RBC Auto (Bld) [#/Vol] 7.3 E9/L Normal 4.0-11.[address] [facility] Comment on above: Performed By: #### 1 2822136, 8742930, 29682387, 6555470, 1203389 #### [facility] [address] [place] [address] CT Head or Brain w/o Contras ton [...] MD Transcribed by: MALINI Technologist: SHARIF Normal [facility] Capillary Glucose POCon 08-21 Glucose [Mass/Vol] 110 mg/dL High 55-[address] [facility] Comment on above: Performed By: #### 2 [id number] ####[facility] [address] [place] [address] Consent To Leave AMAon 09-13 Consent To Leave AMA [id number]:[address] [facility] Consent for Treatmenton 08-21 Consent for Treatment [id number]:127 [facility] Discharge Instructionson Discharge Instructions [id number]:[address] [facility] ED Clinical Summaryon 2020 ED Clinical Summary (Inserted Image. Daya ble to display) [place] [id number] ED Clinical Summary Person Information Name: YOLI ANTUNEZ JR Yazmin/[facility] Age: 65 Years : 1955 Sex: Male Language: Jordanian PCP: RADHA BURRIS MD Marital Status: Visit [...] 09/13/2020 10:52:16 09/13/2020 10:52:16 09/13/2020 10:52:16 ADDRESS: [address] [place] [id number] PHYS DOC NOTES: MEDICAL INFORMATION: Prescriptions Given: [...] Instructions: Follow up: With: Address: When: Tono Castaneda [address] [place] [address] [phone] Business (1) In 1 day 09/14/2020 With: Address: When: RADHA BURRIS [address] [place], [place] [id number] Business (1) In 3 days DIAGNOSIS: Angina pectoris; Cephalgia Normal [facility] ED Note-Nursingon 09-13-2020 ED Note-Nursing dc instructions revi ewed, pt verbalized understanding. Normal [facility] ED Note-Nursing Dr. Low spoke wi th pt., pt does not want to be admitted, AMA paperwork filled out. Normal 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 Normal [facility] ED Note-Nursing Thomas from pharmacy in and speaking with pt about his med list, pt informed he is [facility] ED Note-Physicianon 09-14-19 ED Note-Physician Basic Information Time Seen: Bhavesh Low DO 09/13/2020 08:52 Chief Complaint pt drove self [...] had multiple ablations and sees cardiology in [place]. He denies any history of CAD but [...] me he will follow up with his ged instructor in the outpatient setting. The patient wishes [...] and still (more content not included)... Normal [facility] Comment on above: Result Comment: Elec tronically Signed By: Bhavesh Low DO\.dionne\Date and Time Signed: 09/13/20 10:42 EDT ED Patient Education Noteon 09-13-2020 ED Patient Education Note Normal [facility] ED Patient Summaryon 021 ED Patient Summary (Inserted Image. Daya ble to display) [address] [address] Patient Discharge Instructions Person Information Name: YOLI ANTUNEZ JR Age: 65 Years Arrival Date: 09/13/2020 08:43:38 Discharge Diagnosis: Angina pectoris; Cephalgia Primary Care Physician: RADHA BURRIS MD Provider Information Primary Provider: Bhavesh Low DO Advanced Lead Injection Mold Technician:None The exam and treatment you received in the Emergency Department were for an urgent problem and are not intended as complete care. It is important that you follow up with a doctor, nurse practitioner, or physician?s stores assistant for ongoing care. If your symptoms [...] Follow-up Instructions: With: Address: When: Tono Castaneda [address] [place] [id number] [phone] [employer] (1) In 1 day 09/14/2020 With: Address: When: RADHA BURRIS [facility] [place], [place] [id number] Business (1) In 3 days In the event that this physician does not participate in your insurance network, please consult with your insurance company to find a nearby participating provider. Patient Education Materials: A MESSAGE TO ALL PATIENTS REGARDING OPIOIDS PRESCRIPTION OPIOIDS: WHAT YOU NEED TO KNOW Prescription opioids can be used to help relieve cmmeyhsj-wi-jnurqz pain and are often prescribed following a [...] be struggling with addiction, tell your health care center manager (more content not included)... Normal [facility] Monitor Recordon 09-13-2020 Monitor Record [id number]:127 [facility] Monitor Record [id number]:[address] [facility] Troponin 0 Hr.on 09-13-2020 Troponin I.cardiac [Mass/Vol] 2.70 pg/mL Low 15.90-38.[address] [facility] Comment on above: Result Comment: The 95% CI (Confidence Interval) PPV (Positive Predictive Value) for myocardial infarction in females is 38 pg/mL, in males 51 pg/mL. The results should be used in conjunction with clinical conditions of myocardial infarction. (Access High Sensitivity Troponin I Instructions For Use, Bret Leonardo, November 2017) Performed By: #### 1 [id number], [id number] #### [facility] [address] [place] [address] XR Chest Single Viewon 09-13 XR Chest [...] Oren Ashby M.D. Transcribed by: MALINI Technologist: [facility] Normal [facility] eGFRon 09-13-2020 GFR/1.73 sq M.predicted among blacks MDRD (S/P/Bld) [Vol rate/Area] 57 mL/min/1.73 m2 Low >=[address] [facility] Comment on above: Order Comment: Order added by Discern Expert. Result Comment: eGFR is race adjusted. AA=. Performed By: #### 1 [id number] #### [facility] [address] [place] [address] GFR/1.73 sq M.predicted among non-blacks MDRD (S/P/Bld) [Vol rate/Area] 47 mL/min/1.73 m2 Low >=[address] [facility] Comment on above: Order Comment: Order added by Discern Expert. Result Comment: Biometrics Specialist nikki kidney disease could be indicated at eGFR's of less than 60 mL/min/1.73m2. Kidney failure is indicated at less than 15 mL/min/1.73m2. Performed By: #### 1 [id number], [id number], [id number], [id number], [id number] #### [facility] [address] [place] [address] Coding Summary.on 01-25-2020 Coding Summary. CODING DATE: 020 FINAL [facility] STATUS: Home (Routine DC) PAYOR: Medicare APC [...] Revised Date Saved: 01/25/2020 02:44 pm [address] [facility] Discharge Instructionson Discharge Instructions [id number]:[address] [facility] Auto Diffon 01-19-2020 Basophils/100 WBC (Bld) 0.8 % Normal 0.0-2.[address] [facility] Comment on above: Order Comment: Order Added by Discern Expert. Performed By: #### 2 109999, 62565329, 4438180, 24160923, 01079631, 9008299 ####[facility] [address] [place] [address] Basophils/Leukocyte s Auto (Bld) [Pure # fraction] 0.1 E9/L Normal 0.0-0.[address] [facility] Comment on above: Order Comment: Order Added by Discern Expert. Performed By: #### 2 377146, 29484896, 7043082, 10822688, 24202185, 9657542 ####[place] [address] [place] [address] Eosinophils/100 WBC (Bld) 4.0 % Normal 0.0-8.[address] [facility] Comment on above: Order Comment: Order Added by Discern Expert. Performed By: #### 2 672090, 46828943, 0515696, 08117975, 12564354, 2962865 ####[place] [address] [place] [address] Eosinophils/Leukocy heladio Auto (Bld) [Pure # fraction] 0.3 E9/L Normal 0.0-0.[address] [facility] Comment on above: Order Comment: Order Added by Discern Expert. Performed By: #### 2 401144, 53197887, 5932730, 22630591, 45253372, 8804018 ####[place] [address] [place] [address] Lymphocytes/100 WBC (Bld) 21.7 % Normal 14.0-50.[address] [facility] Comment on above: Order Comment: Order Added by Discern Expert. Performed By: #### 2 441709, 39103622, 7923202, 80077932, 76352955, 4710120 ####[place] [address] [place] [address] Lymphocytes/Leukocy heladio Auto (Bld) [Pure # fraction] 1.5 E9/L Normal 1.0-4.[address] [facility] Comment on above: Order Comment: Order Added by Discern Expert. Performed By: #### 2 598298, 49217106, 1687010, 46884760, 16888783, 2074918 ####[facility] [address] [place] [address] Monocytes/100 WBC (Bld) 7.2 % Normal 4.0-14.[address] [facility] Comment on above: Order Comment: Order Added by Discern Expert. Performed By: #### 2 209180, 16909865, 2292957, 76731094, 26867857, 4094232 ####[facility] [address] [place] [address] Monocytes/Leukocyte s Auto (Bld) [Pure # fraction] 0.5 E9/L Normal 0.2-1.[address] [facility] Comment on above: Order Comment: Order Added by Discern Expert. Performed By: #### 2 555062, 34951858, 9495246, 90236016, 65682155, 2213556 ####[facility] [address] [place] [address] Neutrophils/100 WBC (Bld) 66.3 % Normal 36.0-75.[address] [facility] Comment on above: Order Comment: Order Added by Discern Expert. Performed By: #### 2 432526, 08560586, 5532618, 93568823, 99368878, 5865873 ####[facility] [address] [place] [address] Neutrophils/Leukocy heladio Auto (Bld) [Pure # fraction] 4.7 E9/L Normal 2.0-7.[address] [facility] Comment on above: Order Comment: Order Added by Discern Expert. Performed By: #### 2 328021, 43071448, 6732285, 71525637, 42798848, 2178641 ####[facility] [address] [place] [address] [facility] 01-19-2020 Creatinine [Mass/Vol] 1.3 mg/dL Normal 0.5-1.[address] [facility] Comment on above: Performed By: #### 2 447008, 39036514, 9793658, 76932561, 67292895, 0079950 ####[facility] [address] [place] [address] Urea nitrogen [Mass/Vol] 21 mg/dL Normal 5-[address] [facility] Comment on above: Performed By: #### 2 163434, 91162656, 2430486, 27258434, 28333008, 1928818 ####[facility] [address] [place] [address] Urea nitrogen/Creatinine [Mass ratio] 16 No Units Normal 10-[address] [facility] Comment on above: Performed By: #### 2 783147, 68699437, 6861970, 79090715, 40529414, 4434477 ####[facility] [address] [place] [address] Anion gap [Moles/Vol] 13 mmol/L Normal 6-[address] [facility] Comment on above: Performed By: #### 2 449509, 84833690, 6535980, 31819021, 71168857, 5598715 ####[facility] [address] [place] [address] Calcium [Mass/Vol] 7.2 mg/dL Low 8.9-11.[address] [facility] Comment on above: Performed By: #### 2 815131, 80694921, 8529835, 59045373, 57748077, 5033264 ####[facility] [address] [place] [address] Chloride [Moles/Vol] 107 mmol/L Normal 101-[address] [facility] Comment on above: Performed By: #### 2 036158, 11063961, 7378657, 33905394, 00172247, 3957162 ####[facility] [address] [place] [address] CO2 [Moles/Vol] 23 mmol/L Normal 21-31 [facility] Comment on above: Performed By: #### 2 318895, 29865655, 0783343, 64475716, 81678190, 8819279 ####[facility] [address] [place] [address] Glucose [Mass/Vol] 114 mg/dL Normal 55-[address] [facility] Comment on above: Result Comment: If t his glucose result represents a fasting glucose, interpretation should refer to the following reference range: 55-99 mg/dL Performed By: #### 2 957884, 83605287, 6191273, 71729862, 90311671, 1620920 ####[facility] [address] [place] [address] Potassium [Moles/Vol] 3.3 mmol/L Low 3.5-5.[address] [facility] Comment on above: Performed By: #### 2 265093, 08985983, 7077890, 73526465, 23285641, 3824773 ####[facility] [address] [place] [address] Sodium [Moles/Vol] 140 mmol/L Normal 135-[address] [facility] Comment on above: Performed By: #### 2 137822, 19698542, 2287253, 63701329, 12967420, 6779210 ####[facility] [address] [place] [address] CBC w/ Auto Diffon 0 Erythrocyte distribution width (RBC) [Ratio] 14.6 % High 10.9-14.[address] [facility] Comment on above: Performed By: #### 2 781246, 88384943, 5158271, 59899158, 32471391, 5854319 #### [facility] [address] [place] [address] Hematocrit (Bld) [Volume fraction] 38.2 % Normal 37.7-49.[address] [facility] Comment on above: Performed By: #### 2 686114, 81595505, 9862567, 26417262, 55216609, 7367053 #### [facility] [address] [place] [address] Hemoglobin (Bld) [Mass/Vol] 12.7 g/dL Low 13.5-17.[address] [facility] Comment on above: Performed By: #### 2 226853, 00110261, 0255343, 16186160, 97181921, 8291084 #### [facility] [address] [place] [address] MCH (RBC) [Entitic mass] 27.2 pg Normal 27.0-34.[address] [facility] Comment on above: Performed By: #### 2 573127, 44701615, 8742776, 66472899, 42928493, 4019148 #### [facility] [address] [place] [address] MCHC (RBC) [Mass/Vol] 33.2 g/dL Normal 31.4-36.[address] [facility] Comment on above: Performed By: #### 2 888844, 40438018, 1036725, 09748839, 15035261, 5974333 #### [facility] [address] [place] [address] MCV (RBC) [Entitic vol] 82.1 fL Normal 80.0-100.[address] [facility] Comment on above: Performed By: #### 2 921541, 71349205, 0825277, 40082432, 02541474, 3506654 #### [facility] [address] [place] [address] Platelet mean volume (Bld) [Entitic vol] 8.2 fL Normal 6.4-10.[address] [facility] Comment on above: Performed By: #### 2 716579, 49486149, 5136587, 84397781, 06398273, 3450735 #### [facility] [address] [place] [address] Platelets (Bld) [#/Vol] 226.0 E9/L Normal 150.0-500. [address] [facility] Comment on above: Performed By: #### 2 735590, 62229474, 7886717, 90623816, 96744889, 9683882 #### [facility] [address] [place] [address] RBC (Bld) [#/Vol] 4.7 E12/L Normal 4.3-5.[address] [facility] Comment on above: Performed By: #### 2 667219, 22613612, 1835490, 90326437, 56476100, 1513914 #### [facility] [address] [place] [address] WBC corrected for nucl RBC Auto (Bld) [#/Vol] 7.1 E9/L Normal 4.0-11.[address] [facility] Comment on above: Performed By: #### 2 518191, 47394737, 6963233, 04084678, 28623213, 8554114 #### [facility] [address] [place] [address] CTA Headon 01-19-2020 CTA Head Exam Date/Time: [...] 370 Contrast amount in ml's: [address] [facility] CTA Neckon 01-19-2020 CTA Neck Exam [...] apices. FINAL REPORT Dictated: 01/19/2020 5:01 pm Bya Gonsales MD Signed (Electronic Signature): 01/19/2020 5:01 pm Signed by: Bay Gonsales MD Transcribed by: MALINI Technologist: KIMBERLY Technical Comments GFR (mL/min/1/73m2) >60 Contrast: Isovue 370 Contrast amount in ml's: [address] [facility] Capillary Glucose POCon 12-22 Glucose [Mass/Vol] 111 mg/dL High 55-[address] [facility] Comment on above: Result Comment: Erika heart RN/ Performed By: #### 2 [id number] ####[facility] [address] [place] [address] Consent for Treatmenton 12-22 Consent for Treatment [id number]:[address] [facility] ED Clinical Summaryon 2019 ED Clinical Summary (Inserted Image. Daya ble to display) [place] [id number] ED Clinical Summary Person Information Name: YOLI ANTUNEZ JR [place] Age: 64 Years : 1955 Sex: Male Language: Jordanian PCP: RADHA BURRIS MD Marital Status: Visit [...] 01/19/2020 17:29:31 01/19/2020 17:29:31 01/19/2020 17:29:31 ADDRESS: [address] [place] [id number] PHYS DOC NOTES: MEDICAL INFORMATION: Prescriptions Given: [...] Aphasia Follow up: With: Address: When: Earle Jon [address] [place] [address] [place] [address] [facility] () In 3 days 01/22/2020 With: Address: When: Follow-up with your neurologist as directed at [facility] In 3 days 01/22/2020 DIAGNOSIS: Abnormal cardiac enzyme level; Aphasia; Chest pain Normal [facility] ED Note-Physicianon 01-19-20 ED Note-Physician Basic Information Time Seen: Bhavesh Low DO 01/19/2020 15:13 Chief Complaint From home, patient complains of headaches since . Sent to ED by MD. States he has had episodes of aphasia since ablation on . History of Present Illness 64 male presents to the emergency department with headache and aphasia. Patient states that he developed a headache and aphasia last . He was undergoing a procedure at [facility] for ablation for his atrial fibrillation. Patient [...] He was called by the neurologist at [facility] 1 hour prior to arrival and was [...] she cannot recall. He has been taking cctp-eqj-cjyqjyq medications for his headache as well and [...] me he just underwent full work-up at [facility] including negative MRI. He is not exactly sure why the neurologist sent the patient here today for CT angiogram but it is negative. He did request copies of the imaging and I did provide him with this on disc and we sent them electronically to [facility] as well. He is discharged home with instructions to return to the ER for symptoms should change worsen or recur or if he changes his mind to be admitted for observation. Assessment/Plan Abnormal cardiac enzyme level (R74.8: Abnormal levels of other serum enzymes) Aphasia (R47.01: Aphasia) Chest pain (R07.9: Chest pain, unspecified) Orders: Automated Diff Basic Metabolic Panel CBC w/ Auto Diff [facility] Stroke Scale Communication Order Physician to Nursing [...] Jon In 3 days 01/22/2020 EDT [address] [place] [address]- Business (1) Additional Instructions: (more content not included)... Normal [facility] Comment on above: Result Comment: Elec tronically Signed By: Bhavesh Low DO\.br\Date and Time Signed: 01/19/20 17:05 EDT ED [...] Document Reviewed: 11/11/2008 ExitCare? Patient Information ?2015 [employer]. This information is not intended to replace [...] of t (more content not included)... Normal [facility] ED Patient Summaryon 020 ED Patient Summary (Inserted Image. Daya ble to display) [place] [id number] Patient Discharge Instructions Person Information Name: YOLI ANTUNEZ JR Age: 64 Years Arrival Date: 01/19/2020 15:06:59 Discharge Diagnosis: Abnormal cardiac enzyme level; Aphasia; Chest pain Primary Care Physician: RADHA BURRIS MD Provider Information Primary Provider: Bhavesh Low DO Advanced Lead Injection Mold Technician:None The exam and treatment you received in the Emergency Department were for an urgent problem and are not intended as complete care. It is important that you follow up with a doctor, nurse practitioner, or physician?s stores assistant for ongoing care. If your symptoms [...] Follow-up Instructions: With: Address: When: Earle Jon [address] [place], [place] [id number] [facility] () In 3 days 01/22/2020 With: Address: When: Follow-up with your neurologist as directed at [facility] In 3 days 01/22/2020 In the event that this physician does not participate in your insurance network, please consult with your insurance company to find a nearby participating provider. Patient Education Materials: Chest Pain (Nonspecific); Aphasia A MESSAGE TO ALL PATIENTS REGARDING OPIOIDS PRESCRIPTION OPIOIDS: WHAT YOU NEED TO KNOW Prescription opioids can be used to help relieve mrnefqio-en-asisqg pain and are often prescribed following a [...] with addiction (more content not included)... Normal [facility] PT & PTTon 01-19-2020 aPTT Coag (PPP) [Time] 36.5 second(s) Normal 25.1-36.[address] [facility] Comment on above: Result Comment: Hepa rin therapeutic range (represented by Anti-Factor Xa activity of 0.2 - 0.4 U/mL) corresponds to PTT of 56.6 - 109.0 sec. Performed By: #### 2 987851, 03460150, 8145628, 44716157, 71266471, 1871741 ####[facility] [address] [place] [address] INR Coag (PPP) [Relative time] 1.1 {INR} Invalid Interpretation Code [facility] Comment on above: Result Comment: INR results are specifically intended to assess patients stabilized on long-term Anticoagulation therapy suggested INR?s ?Less Intensive Anticoagulation? 2.0 ? 3.0 Conventional Range 3.0 ? 4.5 Performed By: #### 2 428623, 51155679, 8998029, 74143144, 87863790, 2518561 ####[facility] [address] [place] [address] PT Coag (PPP) [Time] 13.1 second(s) High 10.2-12.[address] [facility] Comment on above: Performed By: #### 2 542759, 86430035, 0015828, 20817933, 31434531, 3806803 ####[facility] [address] [place] [address] Troponin 0 Hr.on 01-19-2020 Troponin I.cardiac [Mass/Vol] 126.30 pg/mL Abnormal 15.90-38.[address] [facility] Comment on above: Result Comment: Crit ical Result verified by repeat analysis\ Critical Result I_hsTnI:126.3 Called to NANCY NELSON at by [employer] and read back for confirmation at 01/19/2020 16:14:20 The 95% CI (Confidence Interval) PPV (Positive Predictive Value) for myocardial infarction in females is 38 pg/mL, in males 51 pg/mL. The results should be used in conjunction with clinical conditions of myocardial infarction. (Access High Sensitivity Troponin I Instructions For Use, Bret [place], November 2017) Performed By: #### 2 100118, 23472736, 9114841, 13751899, 02771880, 2278625 ####[facility] [address] [place] [address] XR Chest Single Viewon 01-18 XR Chest [...] Andres Torres M.D. Transcribed by: MALINI Technologist: BRYANT Normal [facility] eGFRon 01-19-2020 GFR/1.73 sq M.predicted among blacks MDRD (S/P/Bld) [Vol rate/Area] mL/min/{1.73_m2} Normal >=[address] [facility] Comment on above: Order Comment: Order added by Discern Expert. Result Comment: eGFR is race adjusted. AA=. Performed By: #### 2 668400, 43962781, 8730610, 99820217, 76177882, 7595096 ####[facility] [address] [place] [address] GFR/1.73 sq M.predicted among non-blacks MDRD (S/P/Bld) [Vol rate/Area] 55 mL/min/1.73 m2 Low >=[address] [facility] Comment on above: Order Comment: Order added by Discern Expert. Result Comment: Biometrics Specialist nikki kidney disease could be indicated at eGFR's of less than 60 mL/min/1.73m2. Kidney failure is indicated at less than 15 mL/min/1.73m2. Performed By: #### 2 750697, 86405975, 1840630, 30468068, 13226265, 2139421 ####[facility] [address] [place] [address] Creatinineon 04-28-2018 Creatinine mass conc 1.47 mg/dL High 0.50-1.30 [facility] Comment on above: Performed By: #### 1 218028 ####[facility] [address] [place] [address] GFR/1.73 sq M.predicted MDRD vol rate/area 48 mL/min/{1.73_m2} Normal [facility] Comment on above: Result Comment: Inte rpretation for Chronic Kidney Disease:Stages 1&2 >60 Healthy or potential kidney damage.Mild decrease of GFR.Stage 3 30-59 Moderate decrease of GFR.Stage 4 15-29 Severe decrease of GFR.Stage 5 <15 Kidney failure or on dialysis. Performed By: #### 1 834814 ####[facility] [address] [place] [address] Electrolyte Panelon 04-28-19 19 Anion gap 3 molar conc 10 mmol/L Normal 10-20 [facility] Comment on above: Performed By: #### 1 315402 ####[facility] [address] [place] [address] Chloride molar conc 110 mmol/L High 98-107 [facility] Comment on above: Performed By: #### 1 159639 ####[facility] [address] [place] [address] HCO3 molar conc (Bld) 25 mmol/L Normal 21-32 [facility] Comment on above: Performed By: #### 1 078592 ####[facility] [address] [place] [address] Potassium molar conc 4.2 mmol/L Normal 3.5-5.1 [facility] Comment on above: Performed By: #### 1 005008 ####[facility] [address] [place] [address] Sodium molar conc 141 mmol/L Normal 136-145 [facility] Comment on above: Performed By: #### 1 227249 ####[facility] [address] [place] [address] Urea Nitrogenon 04-28-2018 Urea nitrogen mass conc 32 mg/dL High 6-23 [facility] Comment on above: Performed By: #### 1 020811 ####[facility] [address] [place] [address] Vital Signs Date Time Vital Sign Value Performing Clinician Facility 04-16-2023 11:58-0500 Diastolic blood pressure 77 mm[Hg] MD Radha Burris Work Phone: [facility] 04-16-2023 11:58-0500 Heart rate 60 /min MD Radha Burris Work Phone: [facility] 04-16-2023 11:58-0500 Respiratory rate 16 /min MD Radha Burris Work Phone: [facility] 04-16-2023 11:58-0500 SaO2% (BldA) [Mass fraction] 100 % MD Radha Burris Work Phone: [facility] 04-16-2023 11:58-0500 Systolic blood pressure 122 mm[Hg] MD Radha Burris Work Phone: [facility] 04-16-2023 09:35-0500 Body height 198.12 cm MD Radha Burris Work Phone: [facility] 04-16-2023 09:35-0500 Body weight 111.13 kg MD Radha Burris Work Phone: [facility] 03-20-2023 14:00-0500 Body height Imad Asaad Other [facility] [employer] Other 03-20-2023 14:00-0500 Body mass index (BMI) [Ratio] 30.34 kg/m2 Imad Asaad Other [employer] Other 03-20-2023 14:00-0500 Body weight 116.08 kg Imad Asaad Other [employer] Other 03-20-2023 14:00-0500 Diastolic blood pressure 70 mm[Hg] Imad Asaad Other [employer] Other 03-20-2023 14:00-0500 Systolic blood pressure 120 mm[Hg] Imad Asaad Other [facility] [employer] Other 01-31-2023 14:51-0400 Body mass index (BMI) [Ratio] 28.89 kg/m2 Yossi Chen MD Work Phone: [facility] 01-31-2023 14:51-0400 Body weight 113.4 kg Yossi Chen MD Work Phone: [facility] 12-31-2022 15:12-0400 Body height 198.1 cm Sarbjit Dobrowski MED AIDE.FILTER WASHER [employer] PRESSER Work Phone: [facility] 12-31-2022 15:12-0400 Body weight 114.76 kg Sarbjit Dobrowski MED AIDE.FILTER WASHER [employer]ER Work Phone: [facility] 12-31-2022 15:12-0400 Diastolic blood pressure 77 mm[Hg] Sarbjit Dobrowski MED AIDE.FILTER WASHER AND PRESSER Work Phone: [facility] 12-31-2022 15:12-0400 Heart rate 69 /min Sarbjit Dobrowski MED AIDE.FILTER WASHER AND PRESSER Work Phone: [facility] 12-31-2022 15:12-0400 Systolic blood pressure 123 mm[Hg] Sarbjit Dobrowski MED AIDE.FILTER WASHER AND PRESSER Work Phone: [facility] 11-29-2022 13:43-0400 Body height 198.12 cm Radha Burris Work Phone: [facility] DO Work Phone: 11-29-2022 13:43-0400 Body mass index (BMI) [Ratio] 29.24 kg/m2 Radha Burris Work Phone: [facility] DO Work Phone: 11-29-2022 13:43-0400 Body surface area Derived from formula 2.49 m2 Radha Burris Work Phone: [facility] DO Work Phone: 11-29-2022 13:43-0400 Body weight 114.76 kg Radha Burris Work Phone: [facility] DO Work Phone: 11-12-2022 14:23-0400 Body height 198.12 cm Radha Burris Work Phone: [facility] DO Work Phone: 11-12-2022 14:23-0400 Body mass index (BMI) [Ratio] 29.82 kg/m2 Radha Burris Work Phone: [facility] DO Work Phone: 11-12-2022 14:23-0400 Body surface area Derived from formula 2.52 m2 Radha Burris Work Phone: [facility] DO Work Phone: 11-12-2022 14:23-0400 Body weight 117.03 kg Radha Burris Work Phone: [facility] DO Work Phone: 11-12-2022 14:23-0400 Diastolic blood pressure 65 mm[Hg] Radha Burris Work Phone: [facility] DO Work Phone: 11-12-2022 14:23-0400 Heart rate 77 /min Radha Burris Work Phone: [facility] DO Work Phone: 11-12-2022 14:23-0400 Systolic blood pressure 104 mm[Hg] Radha Burris Work Phone: [facility] DO Work Phone: 10-18-2022 14:32-0400 Diastolic blood pressure 61 mm[Hg] Infusion 3 Work Phone: [facility] 10-18-2022 14:32-0400 Heart rate 68 /min Infusion 3 Work Phone: [facility] 10-18-2022 14:32-0400 Respiratory rate 14 /min Infusion 3 Work Phone: [facility] 10-18-2022 14:32-0400 Systolic blood pressure 111 mm[Hg] Infusion 3 Work Phone: [facility] 08-30-2022 07:01-0400 Body height 184.4 cm Beth Diego MD Work Phone: [facility] 08-30-2022 07:01-0400 Body mass index (BMI) [Ratio] 33.41 kg/m2 Beth Diego MD Work Phone: [facility] 08-30-2022 07:01-0400 Body weight 113.6 kg Beth Diego MD Work Phone: [facility] 08-17-2022 10:33-0400 Body height 198.12 cm Radha Burris Work Phone: HY-Lnqqzwivgtoxpy-Dj rma MAC1 [address] Work Phone: 08-17-2022 10:33-0400 Body mass index (BMI) [Ratio] 29.99 kg/m2 Radha Burris Work Phone: IF-Zkldzummokighz-Xy rma MAC1 302 Work Phone: 08-17-2022 10:33-0400 Body surface area Derived from formula 2.52 m2 Radha Burris Work Phone: AE-Dwruqpjpugswxd-Da rma MAC1 302 Work Phone: 08-17-2022 10:33-0400 Body temperature 97.8 [degF] Radha Burris Work Phone: EE-Funqueoorqhlrw-Sc rma MAC1 [address] Work Phone: 08-17-2022 10:33-0400 Body weight 117.71 kg Radha Burris Work Phone: LY-Qiveyvkiuztlhf-Ft rma MAC1 [address] Work Phone: 08-17-2022 10:33-0400 Diastolic blood pressure 74 mm[Hg] Radha Burris Work Phone: GJ-Kmvxkdnyhaduek-Nm rma MAC1 [address] Work Phone: 08-17-2022 10:33-0400 Heart rate 82 /min Radha Burris Work Phone: US-Yakitupuphkorn-Zh rma MAC1 [address] Work Phone: 08-17-2022 10:33-0400 Respiratory rate 16 /min Radha Burris Work Phone: [place]-Vgsacladgbgssm-En rma MAC1 [address] Work Phone: 08-17-2022 10:33-0400 SaO2% (BldA) [Mass fraction] 98 % Radha Burris Work Phone: YS-Pehktpqkrsastp-Ci rma MAC1 302 Work Phone: 08-17-2022 10:33-0400 Systolic blood pressure 111 mm[Hg] Radha Burris Work Phone: TL-Veusrhowjpmzyz-Ed rma MAC1 [address] Work Phone: 07-26-2022 14:25-0400 Diastolic blood pressure 77 mm[Hg] Infusion 3 Work Phone: [facility] 07-26-2022 14:25-0400 Heart rate 88 /min Infusion 3 Work Phone: [facility] 07-26-2022 14:25-0400 Systolic blood pressure 120 mm[Hg] Infusion 3 Work Phone: [facility] 07-17-2022 08:57-0400 Body height 198.12 cm Radha Burris Work Phone: [facility] 4100 Work Phone: 07-17-2022 08:57-0400 Body mass index (BMI) [Ratio] 29.08 kg/m2 Radha Burris Work Phone: [facility]omsgyx[facility] 4107 Work Phone: 07-17-2022 08:57-0400 Body surface area Derived from formula 2.49 m2 Radha Burris Work Phone: [facility]agbvzjjkzb[facility] 4100 Work Phone: 07-17-2022 08:57-0400 Body temperature 98.8 [degF] Radha Burris Work Phone: FL-Kxqdruqtwmkbso-[facility] 4101 Work Phone: 07-17-2022 08:57-0400 Body weight 114.13 kg Radha Burris Work Phone: AG-Pxmmlbknxirjib-XdSan[facility] 4100 Work Phone: 01-05-2022 14:08-0400 Respiratory rate 16 /min John Saul MD Work Phone: [facility] 01-05-2022 09:00-0400 Diastolic blood pressure 80 mm[Hg] John Saul MD Work Phone: [facility] 01-05-2022 09:00-0400 Heart rate 63 /min John Saul MD Work Phone: [employer] 01-05-2022 09:00-0400 Systolic blood pressure 143 mm[Hg] John Saul MD Work Phone: [facility] [employer] 01-05-2022 07:45-0400 Body temperature 97.9 [degF] John Saul MD Work Phone: [facility] [employer] 01-05-2022 07:45-0400 SaO2% (BldA) [Mass fraction] 98 % John Saul MD Work Phone: [facility] [employer] 01-03-2022 06:00-0400 Body mass index (BMI) [Ratio] 29.47 kg/m2 John Saul MD Work Phone: [facility] [employer] 01-03-2022 06:00-0400 Body weight 115.67 kg John Saul MD Work Phone: [facility] [employer] 12-31-2021 23:43-0400 Body height 198.1 cm John Saul MD Work Phone: [facility] [employer] 10-02-2021 16:00-0400 Body height Thor Fox Other [employer] Other 10-02-2021 16:00-0400 Body mass index (BMI) [Ratio] 30.71 kg/m2 Thor Fox Other [employer] Other 10-02-2021 16:00-0400 Body weight 117.48 kg Thor Fox Other [employer] Other 10-02-2021 16:00-0400 Diastolic blood pressure 72 mm[Hg] Thor Fox Other [employer] Other 10-02-2021 16:00-0400 SaO2% (BldA) [Mass fraction] 97 % Thor Fox Other [employer] Other 10-02-2021 16:00-0400 Systolic blood pressure 118 mm[Hg] Thor Fox Other [employer] Other 08-30-2021 10:15-0400 Body height Lashawn Estrada Other [employer] Other 08-30-2021 10:15-0400 Body mass index (BMI) [Ratio] 30.76 kg/m2 Lashawn Estrada Other [employer] Other 08-30-2021 10:15-0400 Body weight 117.66 kg Lashawn Estrada Other [employer] Other 08-30-2021 10:15-0400 Diastolic blood pressure 64 mm[Hg] Lashawn Estrada Other [employer] Other 08-30-2021 10:15-0400 Respiratory rate 18 /min Lashawn Estrada Other [employer] Other 08-30-2021 10:15-0400 SaO2% (BldA) [Mass fraction] 96 % Lashawn Estrada Other [employer] Other 08-30-2021 10:15-0400 Systolic blood pressure 116 mm[Hg] Lashawn Estrada Other [employer] Other 08-03-2021 16:45-0400 Body height Thor Fox Other [employer] Other 08-03-2021 16:45-0400 Body mass index (BMI) [Ratio] 30.73 kg/m2 Thor Fox Other [employer] Other 08-03-2021 16:45-0400 Body weight 117.57 kg Thor Fox Other [employer] Other 08-03-2021 16:45-0400 Diastolic blood pressure 80 mm[Hg] Thor Fox Other [employer] Other 08-03-2021 16:45-0400 SaO2% (BldA) [Mass fraction] 98 % Thor Fox Other [employer] Other 08-03-2021 16:45-0400 Systolic blood pressure 122 mm[Hg] Thor Fox Other [employer] Other 03-11-2020 13:30-0500 Body Temperature 98.1 [degF] [address] 03-11-2020 13:30-0500 BP Diastolic 75 mm[Hg] [address] [place] 03-11-2020 13:30-0500 BP Systolic 126 mm[Hg] [address] [place] 03-11-2020 13:30-0500 Pulse (Heart Rate) 69 /min [address] [place] 03-11-2020 13:30-0500 Respiratory Rate 18 /min [address]Ec[address] LabsPORT[place], [place] 03-11-2020 09:45-0500 Pulse Oximetry 99 % [address] [place] 03-03-2019 13:16-0500 BMI (Body Mass Index) 28 kg/m2 Chris escalante 201 Work Phone: 03-03-2019 13:16-0500 Body weight 109.88 kg Chris escalante 201 Work Phone: 03-03-2019 13:16-0500 BP Diastolic 80 mm[Hg] Chris Luong [facility] 201 Work Phone: Comment on above: Location: LUE; Position: Sitting 03-03-2019 13:16-0500 BP Systolic 118 mm[Hg] Chris Luong [facility] 201 Work Phone: Comment on above: Location: LUE; Position: Sitting 03-03-2019 13:16-0500 BSA (Body Surface Area) 2.45 m2 Chris Luong MPQU-Xkugqorub-Uqpiipl ld 201 Work Phone: 03-03-2019 13:16-0500 Height 198.12 cm Chris Luong [facility] 201 Work Phone: 03-03-2019 13:16-0500 Pulse (Heart Rate) 81 /min Chris Luong [facility]- [facility] 201 Work Phone: 03-03-2019 13:16-0500 Pulse Oximetry 96 % Chris Luong [facility] 201 Work Phone: Comment on above: Source: RA Encounters Encounter Date Encounter Type Care Provider Facility Start: 05-31-2023 Clinisync Result Encounter Generic External Data Provider [facility] External Department Unsolicited Start: 05-31-2023 Clinisync Result Encounter Generic External Data Provider [facility] External Department Unsolicited Start: 05-31-2023 End: 05-31-2023 ambulatory María Pearl BRENNA.[employer]ESS[employer] Work Phone: Neurology Comment on above: Orthostatic hypotens ion (Primary Dx); Neilton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) Start: 05-31-2023 End: 05-31-2023 Telemedicine consultation with patient María Pearl APRN.[employer] WASHER [employer]ESSER Work Phone: [facility] Start: 05-30-2023 Telephone encounter Charlene GLORIA [facility] Start: 05-30-2023 End: 05-30-2023 ambulatory SHUKRI VILCHIS [facility] Start: 05-26-2023 Letter encounter Radha cantu MD Work Phone: [facility] Start: 2023 End: [address] [facility] Start: 05-20-2023 End: 05-20-2023 ambulatory Imad Asaad Other [employer] Other Start: 05-20-2023 Telephone encounter Imad Asaad [facility] Start: 05-03-2023 End: 05-03-2023 ambulatory MAYELIN WOLFF Not Available Start: 05-02-2023 End: 05-02-2023 ambulatory MARTÍN JONES Not Available Start: 04-26-2023 End: 04-26-2023 ambulatory Imad Asaad Other [employer] Other Start: 04-26-2023 Telephone encounter Imad Asaad [facility] Start: 04-24-2023 End: 04-24-2023 ambulatory Imad Asaad Other [employer] Other Start: 04-24-2023 Telephone encounter Imad Asaad [facility] Start: 04-23-2023 End: 04-24-2023 ambulatory MATIAS Levi LARRY Not Available Start: 04-16-2023 End: 04-16-2023 ambulatory Radha Burris Facility:[facility] Start: 04-16-2023 End: 04-16-2023 Admission to same day surgery center MD Radha Burris Work Phone: [facility] Work Phone: Start: 04-16-2023 End: 04-16-2023 ambulatory MD Radha Burris Work Phone: [facility] Work Phone: Start: 04-09-2023 End: 04-09-2023 ambulatory Imad Asaad Other [employer] Other Start: 04-09-2023 Telephone encounter Imad Asaad [facility] Start: 04-03-2023 End: 04-03-[facility] Start: 04-01-2023 End: 04-01-2023 ambulatory Imad Asaad Other [employer] Other Start: 04-01-2023 Telephone encounter Imad Asaad [facility] Start: 03-20-2023 End: 03-20-2023 ambulatory Imad Asaad Other [employer] Other Start: 03-20-2023 Office outpatient ne w 45 minutes Imad Asaad [facility] Start: 03-05-2023 End: 03-05-2023 Emergency department patient visit JAYLYN BENDER [facility] Start: 03-05-2023 ambulatory JACKIE Magana [facility] Start: 02-25-2023 End: 02-25-2023 ambulatory RADHA BURRIS Facility:[facility] Start: 02-25-2023 End: 02-25-2023 ambulatory Skin Biopsy Work Phone: Neurology Start: 02-25-2023 End: 02-25-2023 Patient encounter procedure Skin Biopsy Work Phone: [facility] Start: 02-05-2023 Telephone encounter María Zhao on MED AIDE.FILTER WASHER [employer] PRESSER Work Phone: Neurology Comment on above: Results (Gerri teran ) Start: 02-01-2023 End: 02-02-2023 ambulatory RADHA BURRIS [facility] Start: 02-01-2023 End: 02-01-2023 Subsequent hospital visit by physician Winifred Baker 2 [facility] Comment on above: Left lower quadrant abdominal pain Start: 01-31-2023 End: 02-01-2023 ambulatory [facility] Start: 01-31-2023 End: 01-31-2023 Office outpatient visit 25 minutes Yossi Chen MD Work Phone: [facility] Comment on above: Diarrhea, unspecifie d type (Primary Dx); Left lower quadrant abdominal pain Start: 01-28-2023 ambulatory María Pearl APRN.[employer] Work Phone: Neurology Comment on above: Tilt Start: 01-28-2023 E-mail encounter fro m caregiver María Pearl MED AIDE.FILTER WASHER [employer] PRESSER Work Phone: [facility] Start: 01-28-2023 Telephone encounter Maríanikki Johnsonjoshua ellis MED AIDE.[employer] W[employer]ER [employer]ESSER Work Phone: Neurology Comment on above: Results ([facility] ) Start: 01-26-2023 ambulatory María Pearl APRN.[employer] W[employer]ER [employer]ESSER Work Phone: Neurology Comment on above: Test results Start: 01-24-2023 End: 01-24-2023 ambulatory RADHA BURRIS Facility:[facility] Start: 01-23-2023 End: 01-23-2023 ambulatory RADHA BURRIS Facility:[facility] Start: 01-21-2023 End: 01-21-[address] [facility] Start: 12-31-2022 End: 12-31-2022 ambulatory RADHA BURRIS Facility:[facility] Start: 12-31-2022 End: 12-31-2022 Patient encounter procedure Sarbjit Richardson MED AIDE.[employer] W[employer] PRESSER Work Phone: Neurology Comment on above: Autonomic dysfunctio n (Primary Dx); Dizzy spells Start: 12-28-2022 End: 12-28-2022 ambulatory COLLIN KERRCHANTELL [facility] Start: 12-13-2022 Postop follow up vis it related to original px Radha Burris Work Phone: [facility] DO Work Phone: Start: 12-13-[address] Yossi Chen Facil ity:[id number] Start: 12-10-2022 Chart Update Radha xavier Work Phone: [facility] DO Work Phone: Start: 11-29-2022 Postop follow up vis it related to original px Radha Burris Work Phone: [facility] DO Work Phone: Start: 11-29-[address] Yossi Chambers ity:[id number] Start: 11-22-2022 End: 11-22-2022 Evaluation and management of inpatient Dr. Yossi Chen Facility:[id number] Start: 11-16-2022 Telephone encounter Sarbjit Puentes APRN.[employer] W[employer]ER [employer]ESSER Work Phone: Neurology Comment on above: [facility] Start: 11-12-[address] Yossi Chen Facil ity:[id number] Start: 10-29-2022 AUDIT Radha xavier Work Phone: LO-Ernwiigmfxpjin-Tpczya n Work Phone: Start: 10-26-[address] Arabella Butt Facility:[id number] Start: 10-19-2022 End: 10-19-2022 ambulatory Sarbjit Richardson APRN.[employer] W[employer]ER [employer]ESSER Work Phone: Neurology Comment on above: Reaction Start: 10-18-2022 End: 10-18-2022 ambulatory Infusion Main Chair 3 Work Phone: Neurology Comment on above: Chronic migraine wit hout aura, with intractable migraine, so stated, with status migrainosus (Primary Dx) Start: 10-15-2022 End: 10-15-[address] Arabella Butt Facility:[id number] Start: 10-15-2022 End: 10-15-2022 Subsequent hospital visit [...] joint, bilateral; Personal history of nicotine dependence; USP (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 of aspirin; Allergy status to penicillin; Allergy status to other antibiotic agents Start: 10-10-[address] Arabella Butt Facility:[id number] Start: 10-10-2022 Encounter for preprocedural cardiovascular examination Dr. Arabella Butt [facility] Start: 10-09-2022 AUDIT Radha xavier Work Phone: [facility] Work Phone: Start: 10-08-2022 Rx Renewal Radha xavier Work Phone: JT-Yxjnyvvwcjhlcf-[facility] 4108 Work Phone: Start: 09-25-2022 Office outpatient vi sit 25 minutes Radha Burris Work Phone: RM-Adtkfdwbiqezzz-Iqkiml n Work Phone: Start: 09-25-2022 VIRFUPujaADDISON GILBERT HOSPITALLilly, Provider : Ruby Daily, Status: Pen, Time: 2:30 PM Radha Burris Work Phone: [facility] 4243 Work Phone: Start: 09-25-[address] Ruby Daily Facility:[facility] Start: 09-24-2022 Office outpatient vi sit 10 minutes Radha Burris Work Phone: [facility] 331 Work Phone: Start: 09-24-[address] Ranjana Perrin Facility:[id number] Start: 09-13-2022 End: 09-13-[address] Rbuy Daily Facility:[facility] Start: 09-11-2022 End: 09-12-2022 ambulatory [facility] Start: 09-11-2022 ambulatory [facility] Start: 09-04-2022 Office outpatient vi sit 40 minutes Radha Burris Work Phone: MV-Vybrrynmgnedmd-Nuoyma n Work Phone: Start: 09-04-[address] Ruby Daily Facility:[facility] Start: 08-30-2022 End: 08-30-[address] Ruby Daily Facility:[facility] Start: 08-30-2022 End: 08-30-2022 Subsequent hospital visit by physician Beth Diego MD Work Phone: [facility] Comment on above: Dysphagia, oropharyn geal [...] Obstructive sleep apnea (adult) (pediatric); 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, unspecified; 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 of antithrombotics/antiplatelets; USP (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 of aspirin; Personal history of transient ischemic attack (TIA), and cerebral infarction without residual deficits; Personal history of nicotine dependence; Allergy status to penicillin Start: 08-23-2022 AUDIT Radha xavier Work Phone: GS-Maiiqbffkiziuk-Wjpctw n Work Phone: Start: 08-20-[address] Radha Burris Facility:[facility] Start: 08-17-2022 Current tobacco non-user cad cap copd pv dm Radha Burris Work Phone: YR-Hblpoaxvwadzki-Djnmv MAC1 302 Work Phone: Start: 08-17-[address] Arabella Butt Facility:[id number] Start: 08-13-[address] Radha Burris Facility:[id number] Start: 08-13-2022 Patient encounter procedure Radha Burris [facility] [address] [place] Work Phone: Start: 08-10-[address] Ruby Daily Facility:[id number] Start: 07-31-2022 Office outpatient vi sit 40 minutes Radha Burris Work Phone: DB-Aqukxgeibqynrx-Mlatrp n Work Phone: Start: 07-31-2022 Patient encounter procedure Radha Burris Work Phone: VB-Dwermgcdlvchvz-Esertk n Work Phone: Start: 07-31-2022 BRITTANYFUERICK, Provider : Ruby Daily, Status: Pen, Time: 12:30 PM Radha Burris Work Phone: [facility] [address] [place] Work Phone: Start: 07-31-[address] Ruby Daily Facility:[id number] Start: 07-30-[address] Radha Burris Facility:[id number] Start: 07-30-2022 Patient encounter procedure Radha Burris Work [facility]: [facility] [address] [place] Work Phone: Start: 07-29-2022 ambulatory Sarbjit gregg APRN.FILTER WASHER [employer] PRESSER Work Phone: Neurology Comment on above: After effects Start: 07-26-2022 End: 07-26-2022 ambulatory Infusion Main Chair 3 Work Phone: Neurology Comment on above: Chronic migraine wit hout aura, with intractable migraine, so stated, with status migrainosus (Primary Dx) Start: 07-21-2022 ambulatory Sarbjit gregg MED AIDE.FILTER WASH[employer] PRESSER Work Phone: Neurology Comment on above: What's next? Start: 07-20-2022 ambulatory JACKIE KARLYNN [facility] Start: 07-18-[address] Ranjana Perrin Facility:[id number] Start: 07-17-2022 Office outpatient vi sit 25 minutes Radha Burris Work Phone: RK-Upnrydrfmoaavk-Ccvhxu n Voice Work Phone: Start: 07-17-2022 Patient encounter procedure Radha Burris Work Phone: AO-Mcmjxxsdyakymz-PcnekfSt[facility] 4100 Work Phone: Start: 07-17-[address] Ranjana Perrin Facility:[id number] Start: 07-11-2022 ambulatory Sarbjit gregg MED AIDE.FILTER WASHER [employer] PRESSER Work Phone: Neurology Comment on above: Test results Start: 07-09-2022 End: 07-10-2022 ambulatory LACEY [facility] Start: 06-04-2022 End: 06-05-[address] AISHWARYA SWAIN Facility:H1 Start: 05-31-2022 ambulatory Sarbjit gregg MED AIDE.[employer] W[employer]ESS[employer] Work Phone: Neurology Comment on above: Today's visit Start: 05-31-2022 E-mail encounter fro m caregiver Sarbjit Richardson MED AIDE.FILTER WASHER AND PRESSER Work Phone: [facility] Start: 05-31-2022 End: 05-31-2022 Patient encounter procedure Sarbjit Richardson APRN.CNP Work Phone: Neurology Comment on above: Chronic migraine wit hout aura, intractable, without status migrainosus (Primary Dx); Aphasia; Other specified transient cerebral ischemias Start: 05-29-2022 Letter encounter Radha cantu MD Work Phone: [facility] Start: 03-22-2022 End: 03-23-2022 ambulatory YANDEL SHEN Facility:H1 Start: 02-05-2022 End: 02-06-[address] MONO CHRISTIE Facility:H1 Start: 01-09-2022 End: 01-09-[address] DEVANTE SINGH Facility:H1 Start: 01-01-2022 End: 01-05-2022 Evaluation and management of inpatient JANET FORD [facility] Start: 12-31-2021 End: 01-05-2022 Evaluation and management of inpatient John Saul MD Work Phone: [facility] Renal//Med Surg Comment on above: Acute pancreatitis, unspecified complication status, unspecified pancreatitis type (Primary Dx); Gall stone pancreatitis; EMELIA (acute kidney injury) ([facility]) Start: 12-31-2021 End: 01-01-[address] RADHA BURRIS Facility:H1 Start: 12-30-2021 End: 12-31-[address] MAYELIN RODRIGUEZ Facility:H1 Start: 12-29-2021 End: 12-29-[address] VERONICA YOUNG Facility:H1 Start: 12-12-2021 End: 12-13-2021 Evaluation and management of inpatient RADHA BURRIS Facility:[facility] Start: 12-08-2021 End: 12-09-2021 ambulatory YANDEL SHEN Facility:H1 Start: 11-23-2021 Encounter for preprocedural laboratory examination DR MONO CHRISTIE [facility] Start: 11-21-2021 End: 11-22-2021 ambulatory RADHA BURRIS Facility:[facility] Start: 11-17-2021 End: 11-18-[address] MONO CHRISTIE Facility:H1 Start: 11-17-2021 End: 11-18-2021 Encounter for preprocedural laboratory examination DR MONO CHRISTIE Facility:H1 Start: 11-16-2021 End: 11-16-[address] RADHA BURRIS Facility:H1 Start: 11-09-2021 End: 11-10-2021 ambulatory RADHA BURRIS Facility:[facility] Start: 10-03-2021 End: 10-03-[address] Donnell Du Facility:H1 Start: 10-03-2021 End: 10-04-2021 ambulatory YANDEL SHEN Facility:H1 Start: 10-02-2021 End: 10-02-2021 ambulatory Thor Fox Other [employer] Other Start: 10-02-2021 Office outpatient vi sit 15 minutes Thor Ruddy [facility] Start: 09-27-2021 End: 09-28-2021 ambulatory YANDEL SHEN Facility:H1 Start: 08-30-2021 End: 08-30-2021 ambulatory Lashawn Estrada Other [employer] Other Start: 08-30-2021 Office outpatient vi sit 15 minutes Lashawn Estrada [facility] Start: 08-15-2021 (Procedure) Short Thor Fox [facility] Start: 08-15-2021 End: 08-15-2021 ambulatory Thor Fox Other [employer] Other Start: 08-03-2021 End: 08-03-2021 ambulatory Thor Fox Other [employer] Other Start: 08-03-2021 Office outpatient vi sit 25 minutes Thor Ruddy [facility] Start: 07-27-2021 (Procedure) Short Thor Fox [facility] Start: 07-27-2021 End: 07-27-2021 ambulatory Thor Fox Other [employer] Other Start: 07-18-2021 (Procedure) Short Thor Fox [facility] Start: 07-18-2021 End: 07-18-2021 ambulatory Thor Fox Other [facility] [employer] Other Start: 03-11-2020 End: 03-12-2020 Patient encounter procedure RADHA L [facility] Start: 03-11-2020 End: 03-11-2020 Subsequent hospital visit by physician Rupinder Infusion Bed 3 RUPINDER OP INFUSION Comment on above: Arrived Start: 02-10-2020 End: 02-10-2020 ambulatory UNKNOWN PROVIDER Facility:[facility] Start: 10-20-2019 Patient encounter procedure Terrell Arden [facility]ufcfnzfxqywlc-[facility] [place] 4100 Work Phone: Start: 09-29-2019 Patient encounter procedure Terrell Her [facility] 4100 Work Phone: Start: 09-28-2019 Patient encounter procedure Terrell Her [place]-Ctukqzyujnpvsm-GczqjxPrairie [facility] 4100 Work Phone: Start: 09-21-2019 Patient encounter procedure Terrell Her CA-[facility]lzcypllxvfcgs-[facility] 4100 Work Phone: Start: 09-17-2019 Patient encounter procedure Terrell Her -[facility] Work Phone: Start: 09-10-2019 Patient encounter procedure Terrell Her [facility] Work Phone: Start: 06-29-2019 Patient encounter procedure Trerell Her -[facility] 3316 Work Phone: Start: 03-03-2019 Patient encounter procedure Terrell Her [facility]17 Work Phone: Start: 04-28-2018 Patient encounter procedure CLAIR MATT Facility:[id number] Procedures Date Procedure Procedure Detail Performing Clinician Start: 05-31-2023 ALL KAPPA/LAMBDA FREE SERUM Generic Exte rnal Data Provider Start: 04-16-2023 End: 04-16-2023 Colonoscopy MD Radha Burris Work Phone: [...] Phone: Start: 01-03-2022 IMMUNOFIXATION SERUM PROFILE Elio parkre MD Work Phone: Start: 01-03-2022 LACTATE, SEPSIS Shane Portillois DO Work Phone: Start: 01-03-2022 Assay of lipase Shane Portillois DO Work Phone: Start: 01-03-2022 BASIC METABOLIC PANEL W/ REFLEX TO MG FOR LOW K Shane Jacy Villalpando DO Work Phone: Start: 01-03-2022 Hepatic function panel Shane Louie Villalpando DO Work Phone: Start: 01-03-2022 LACTATE, SEPSIS Shane T Villalpando DO Work Phone: Start: 01-02-2022 LACTATE, SEPSIS Shane Louie Villalpando DO Work Phone: Start: 01-02-2022 BASIC METABOLIC PANEL W/ REFLEX TO MG FOR LOW K Elio Campos MD Work Phone: Start: 01-02-2022 LACTATE, SEPSIS Shane Louie Villalpando DO Work Phone: Start: 01-02-2022 SURGICAL PATHOLOGY REPORT Leonel Matos MD Work Phone: Start: 01-02-2022 End: 01-02-2022 Laps surg cholecystectomy w/cholangiography Leonel Matos MD Work Phone: Start: 01-02-2022 Us retroperitoneal real time w/image limited Dariela Walker MD Work Phone: Start: 01-02-2022 Assay of lipase Shane Portillois DO Work Phone: Start: 01-02-2022 BASIC METABOLIC PANEL W/ REFLEX TO MG FOR LOW K Shane Louie Villalpando DO Work Phone: Start: 01-02-2022 Hepatic function panel Shane Louie Villalpando DO Work Phone: Start: 01-02-2022 LACTATE, SEPSIS Shane T Villalpando DO Work Phone: Start: 01-01-2022 LACTATE, SEPSIS Shane T Villalpando DO Work Phone: Start: 01-01-2022 LACTATE, SEPSIS Shane T Villalpando DO Work Phone: Start: 01-01-2022 Assay of troponin quantitative Nohelia Morris MED AIDE - FILTER WASHER [employer] PRESSER Work Phone: Start: 01-01-2022 LACTATE, SEPSIS Shane Portillois DO Work Phone: Start: 01-01-2022 Mri abdomen w/o contrast material Jewel A Liliana MED AIDE - FILTER W[employer]ER [employer]ESSER Work Phone: Start: 01-01-2022 Assay of troponin quantitative Nohelia Morris MED AIDE - FIL[employer] Work Phone: Start: 01-01-2022 Blood count complete [...] Walden MD Work Phone: Start: 01-01-2022 Lipid 1996 panel - Serum or Plasma María Pearl MED AIDE.FILTER WASHER [employer]ESSER Work Phone: Start: 01-01-2022 Assay of troponin quantitative Nohelia Morris MED AIDE - FIL[employer] Work Phone: Start: 01-01-2022 Assay of troponin quantitative Nohelia Morris MED AIDE - FIL[employer] Work Phone: Start: 01-01-2022 LACTATE, SEPSIS Shane Villalpando DO Work Phone: Start: 01-01-2022 Culture bacterial blood aerobic w/id isolates Nohelia Morris MED AIDE - FIL[employer] Work Phone: Start: 01-01-2022 CULTURE, BLOOD 1 Nohelia Morris MED AIDE - FILTER [employer] Work Phone: Start: 12-12-2021 Antibody screen RADHA BURRIS Comment on above: Performed By: #### [id number] #### [address] Start: 09-14-2020 Laboratory test result abnormal Abnormal laboratory test result Generic Provider Start: 09-17-2019 GI Mod Barium Swallow with Speech Jesus Her Start: 03-03-2019 MRI Brain without Contrast Chris Luong Adenoid excision Chris Trinidad kh Appendectomy Chris Luong Atrial appendage dane sure device insertion Radha Burris Work Phone: Catheter ablation of arrhythmogenic focus Radha Burris Work Phone: Cervical arthrodesis Chrisquita Luong Colonoscopy Radha cantu Work Phone: Esophageal hiatus hernia repair Radha Burris Work Phone: Esophagogastroduodenoscopy J luis miguel Burris Work Phone: History of operative procedure on knee Thor Fox Other History of thyroidectomy Nathaly Fox Other History of thyroidectomy Status post total thyroidectomy MD Radha Burris Work Phone: Implantation of inse rtable loop recorder Radha Burris Work Phone: Laminectomy Radha cantu Work Phone: Laparoscopic cholecystectomy Radha Burris Work Phone: Operative procedure on knee Chris Luong Operative procedure on uterus AND/OR cervix Radha Burris Work Phone: Tonsillectomy Radha Collinsharini xavier Work Phone: Total thyroidectomy Radha Burris Work Phone: Plan of Treatment Date Care Activity Detail Author Start: 04-16-2033 Screening for malignant neoplasm of colon [facility] Start: 01-01-2027 Lipid panel [facility] Start: 03-05-2026 [facility] Start: 01-31-2026 [facility] Start: 11-21-2025 DIABETES SCREEN DIABETES SCREEN [facility] Start: 11-21-2025 Diabetes Screening [facility] Start: 03-10-2024 DIABETES SCREEN DIABETES SCREEN [facility] Start: 03-05-2024 Complete blood count Hemoglobin/Constantino tocrit [facility] Start: 03-05-2024 Creatinine measurement Serum Creatin ine [facility] Start: 02-01-2024 Pneumococcal Vaccine : 65+ Years (1 - PCV) Pneumococcal Vaccine: 65+ Years (1 - PCV) [facility] Comment on above: Postponed from 05/21 (Patient Refused) Start: 02-01-2024 Serum Creatinine Serum Creatinine [facility] Start: 01-24-2024 BP Controlled (<130/80) BP Controlled (<130/80) [facility] Start: 01-01-2024 BP CONTROLLED (<130/80) BP CONTROLLED (<130/80) [facility] Start: 11-22-2023 SERUM CREATININE SERUM CREATININE [facility] Start: 10-20-2023 Influenza vaccination Influenza Vacc ine (#1) [facility] Comment on above: Postponed from 12/21 (Patient Refused) Start: 05-31-2023 BP CONTROLLED (<130/80) BP CONTROLLED (<130/80) [facility] Start: 05-31-2023 End: 08-30-2023 [place]/MIGUEL BETHEA SER [facility] Work Phone: Comment on above: Expected: 05/31/2023 , Expires: 08/30/2023 Start: 04-22-2023 Advance Directive Discussion Advance Directive Discussion [facility] Start: 04-22-2023 Depression Assessment Depression Ass essment [facility] Start: 04-16-2023 [facility] Start: 02-01-2023 End: 02-01-2023 Patient encounter procedure 02/01/2023 1:45 PM EDT Appointment [place] [address] [place] [address] [facility] Start: 01-31-2023 End: 02-07-2023 Bacteria identified in Stool by Culture Stool Culture, Test of Cure Microbiology Routine Diarrhea, unspecified type Expected: 01/31/2023 (Approximate), Expires: 02/07/2023 [facility] Work Phone: Comment on above: Expected: 01/31/2023 (Approximate), Expires: 02/07/2023 Start: 01-31-2023 End: 02-01-2024 Basic metabolic 2000 panel - Serum or Plasma [facility] Work Phone: Comment on above: Expected: 01/31/2023 (Approximate), Expires: 02/01/2024 Start: 01-31-2023 End: 02-01-2024 CT Abdomen and Pelvis W contrast IV CT abdomen pelvis w IV contrast Imaging STAT Left lower quadrant abdominal pain Expected: 01/31/2023, Expires: 02/01/2024 [facility] Service Area Work Phone: Comment on above: Expected: 01/31/2023 , Expires: 02/01/2024 Start: 01-31-2023 End: 02-07-2023 Stool Pathogen Panel, PCR Stool Pathogen Panel, PCR Microbiology Routine Diarrhea, unspecified type Expected: 01/31/2023 (Approximate), Expires: 02/07/2023 [facility] Work Phone: Comment on above: Expected: 01/31/2023 (Approximate), Expires: 02/07/2023 Start: 01-27-2023 DTaP/Tdap/Td vaccine (2 - Td or Tdap) DTaP/Tdap/Td vaccine (2 - Td or Tdap) [facility] Start: 01-27-2023 DTaP/Tdap/Td Vaccine s (2 - Td or Tdap) DTaP/Tdap/Td Vaccines (2 - Td or Tdap) [facility] Start: 01-27-2023 Tetanus vaccination Tetanus (T d or Tdap) Booster [facility] Start: 01-27-2023 Urine microalbumin profile [facility] Start: 01-01-2023 Diabetes mellitus screening Diabetes Screening [facility] Start: 01-01-2023 Hemoglobin A1c measurement A1C test (Diabetic or Prediabetic) [facility] Start: 01-01-2023 HEMOGLOBIN/HEMATOCRIT HEMOGLOBIN/HEM ATOCRIT [facility] Start: 01-01-2023 Hepatitis B surface antibody level LDL Cholesterol [facility] Start: 12-21-2022 Covid-19 Vaccine ( season) Covid-19 Vaccine ( season) [facility] Start: 12-21-2022 Influenza vaccination C [facility] Start: 12-13-2022 FUV, Provider: Yossi Chen, Status: Pen, Time: 10:45 AM FUV, Provider: Yossi Chen, Status: Pen, Time: 10:45 AM [facility] DO Work Phone: Start: 11-12-2022 NPV, Provider: Yossi Chen, Status: Pen, Time: 2:45 PM NPV, Provider: Yossi Chen, Status: Pen, Time: 2:45 PM [facility] Work Phone: Start: 10-26-2022 VIROMID, Provider : Arabella Terry, Status: Pen, Time: 3:00 PM JAYLON, Provider: Arabella Terry, Status: Pen, Time: 3:00 PM HK-Gssobfcykimtfw-Ls rma MAC1 302 Work Phone: Start: 10-15-2022 SURGP[facility], Provider: Arabella Terry, Status: Pen, Time: 8:00 AM [facility], Provider: Arabella Terry, Status: Pen, Time: 8:00 AM RX-Mtljciezvfycdk-Gd idman Work Phone: Start: 09-24-2022 VIRFUVJOSHUA, Provider : Ranjana Perrin, Status: Pen, Time: 8:30 AM VIRFUVJOSHUA, Provider: Ranjana Perrin, Status: Pen, Time: 8:30 AM JJ-Caiwpcsxozoekr-Xn [facility] 4100 Work Phone: Start: 09-04-2022 VIRFUERICK, Provider : Ruby Daily, Status: Pen, Time: 11:30 AM VIRFUVHOME, Provider: Ruby Daily, Status: Pen, Time: 11:30 AM [facility] [address] [place] Work Phone: Start: 08-30-2022 EMOT, Provider: EUGENIE OREILLY PROCEDURE ROOM 10,MG GASTRO, Status: Pen, Time: 8:00 AM EMOT, Provider: ELIAN PROCEDURE ROOM 10,MG GASTRO, Status: Pen, Time: 8:00 AM BL-Adixwkkrqvyici-Gh idman Work Phone: Start: 08-30-2022 EGDANS, Provider: Beth Diego, Status: Pen, Time: 7:30 AM EGDANS, Provider: Beth Diego, Status: Pen, Time: 7:30 AM YH-Rxthvkethyrvhn-Om idman Work Phone: Start: 08-17-2022 NPV, Provider: Arabella Alarcon, Status: Pen, Time: 10:40 AM NPV, Provider: Arabella Terry, Status: Pen, Time: 10:40 AM Rehab [facility] [address] [place] Work Phone: Start: 08-13-2022 VIROMID, Provider : Yoanna Quigley, Status: Pen, Time: 3:15 PM VIRFUERICK, Provider: Yoanna Quigley, Status: Pen, Time: 3:15 PM [facility] [address] [place] Work Phone: Start: 07-31-2022 JAYLON, Provider : Ruby Daily, Status: Pen, Time: 12:30 PM VIRFUVJOSHUA, Provider: Ruby Daily, Status: Pen, Time: 12:30 PM FO-Fpxqzaxkrbmxqp-Ti idman [employer] Work Phone: Start: 05-31-2022 End: 07-31-2022 Comprehensive metabolic 2000 panel - Serum or Plasma COMP METABOLIC PANEL Lab Routine Chronic migraine without aura, intractable, without status migrainosus Expected: 05/31/2022, Expires: 07/31/2022 [facility] Work Phone: Comment on above: Expected: 05/31/2022 , Expires: 07/31/2022 Start: 04-22-2022 ADVANCE DIRECTIVE DISCUSSION ADVANCE DIRECTIVE DISCUSSION [facility] Start: 04-22-2022 DEPRESSION ASSESSMENT DEPRESSION ASS ESSMENT [facility] Start: 03-10-2022 SERUM CREATININE SERUM CREATININE Cl [facility] Start: 01-20-2022 Influenza vaccination Influenza Vacc ine (#1) [facility] Start: 01-05-2022 End: 01-05-2023 Basic metabolic 2000 panel - Serum or Plasma Basic Metabolic Panel Lab Routine EMELIA (acute kidney injury) (HCC) Expected: 01/05/2022, Expires: 01/05/2023 [employer] [facility] Work Phone: Comment on above: Expected: 01/05/2022 , Expires: 01/05/2023 Start: 01-05-2022 End: 01-05-2023 CBC W Auto Differential panel - Blood CBC with Auto Differential Lab Routine Acute pancreatitis, unspecified complication status, unspecified pancreatitis type Expected: 01/05/2022, Expires: 01/05/2023 [employer] Work Phone: Comment on above: Expected: 01/05/2022 , Expires: 01/05/2023 Start: 12-21-2021 Influenza vaccination B ON [employer] Start: 06-05-2021 COVID-19 Vaccine (4 - Booster for Moderna series) COVID-19 Vaccine (4 - Booster for Moderna series) [facility] Start: 06-05-2021 COVID-19 VACCINE (4 - Moderna series) COVID-19 VACCINE (4 - Moderna series) [facility] Start: 01-14-2021 Basic metabolic 2000 panel - Serum or Plasma Basic Metabolic Panel [facility] Start: 01-14-2021 Creatinine measurement Basic Metabol ic Panel [facility] Start: 01-05-2021 Thyroid stimulating hormone measurement TSH [facility] Start: 12-15-2020 COVID-19 Vaccine (3 - Booster for Moderna series) COVID-19 Vaccine (3 - Booster for Moderna series) [facility] [employer] Start: 02-21-2020 Annual wellness visit Annual W ellness Visit ([id number]) [facility] Start: 12-22-2019 Influenza vaccination Flu vaccine (# 1) [place], [place] Start: 03-03-2019 MRI Brain with out Contrast LS-Mpqpxxmsh-Kbiawmy ld 201 Work Phone: Start: 2018 Abdominal aortic aneurysm screening Abdominal aortic aneurysm scan [facility] Start: 2018 Abdominal Aortic Aneurysm Screening (Age 65+) Abdominal Aortic Aneurysm Screening (Age 65+) [facility] Start: 2018 Pneumococcal 65+ yea rs Vaccine (1 - PCV) Pneumococcal 65+ years Vaccine (1 - PCV) [facility] [employer] Start: 2018 Pneumococcal 65+ yea rs Vaccine (1 of 1 - PPSV23) Pneumococcal 65+ years Vaccine (1 of 1 - PPSV23) [facility] [employer] [place] Start: 2018 Pneumococcal vaccination [facility] Start: 2018 Pneumococcal Vaccine : 65+ (1 - PCV) Pneumococcal Vaccine: 65+ (1 - PCV) [facility] Start: 2018 Pneumococcal Vaccine : 65+ (1 of 1 - PCV) Pneumococcal Vaccine: 65+ (1 of 1 - PCV) [facility] Start: 2018 Pneumococcal Vaccine : 65+ Years (1 - PCV) Pneumococcal Vaccine: 65+ Years (1 - PCV) [facility] Start: 2018 PNEUMOCOCCAL: 65+ (1 - PCV) PNEUMOCOCCAL: 65+ (1 - PCV) [facility] Start: 2013 RSV Vaccine (1 - 1-dose 60+ series) RSV Vaccine (1 - 1-dose 60+ series) [facility] Start: 2013 RSV vaccine (optiona l 60+ years) RSV vaccine (optional 60+ years) [facility] Start: 2008 PROSTATE CANCER SCREENING DISCUSSION PROSTATE CANCER SCREENING DISCUSSION [facility] Start: 2003 Measurement of occul t blood in single stool specimen FIT [facility] Start: 2003 Screening for malignant neoplasm of colon [facility] Start: 2003 Shingles (RZV) Vacci ne (1 of 2) Shingles (RZV) Vaccine (1 of 2) [facility] Start: 2003 Shingles Vaccine (1 of 2) Shingles Vaccine (1 of 2) [facility] Start: 2003 SHINGRIX VACCINE (1 of 2) SHINGRIX VACCINE (1 of 2) [facility] Start: 2003 Zoster Vaccines (1 o f 2) Zoster Vaccines (1 of 2) [facility] Start: 1998 COLOGUARD (FIT-DNA) COLOGUARD (FIT-D NA) [facility] Start: 1998 Colonoscopy COLONOSCOPY [facility] Start: 1998 COLORECTAL CANCER SCREENING COLORECTAL CANCER SCREENING [facility] Start: [address] COLONOGRAPHY [facility] Start: 1998 FECAL OCCULT BLOOD FECAL OCCULT BLOO D [facility] Start: 1998 Screening for malignant neoplasm of colon [facility] Start: 1998 SIGMOIDOSCOPY SIGMOIDOSCOPY [facility] Start: 1993 Lipid panel Lipid screen [facility] th- [place], [place] Start: 1988 Lipid 1996 panel - Serum or Plasma Lipid Screening [facility] Start: 1988 Lipid panel Cholesterol [facility] Start: 1988 LIPID SCREEN LIPID SCREEN [facility] Start: 1972 DTaP/Tdap/Td vaccine (1 - Tdap) DTaP/Tdap/Td vaccine (1 - Tdap) [employer] Start: 1971 ANNUAL PCP TEAM CHRONIC DISEASE VISIT ANNUAL PCP TEAM CHRONIC DISEASE VISIT [facility] Start: 1971 Hepatitis B surface antibody level LDL CHOLESTEROL [facility] Start: 1971 Hepatitis C screening B [facility] Start: 1971 HEPATITIS C SCREENING HEPATITIS C SC [facility] [place] Start: 1965 [facility] Screen [facility] Start: 1953 ABDOMINAL AORTIC ANEURYSM SCREENING ABDOMINAL AORTIC ANEURYSM SCREENING [facility] Start: 1953 Abdominal aortic aneurysm screening Abdominal Aortic Aneurysm Screening [facility] Start: 1953 Hepatitis C screening Hepatitis C [place], [place] Start: 1953 Lipid panel Lipid Panel [facility] Start: 1953 Medicare Annual Wellness Visit Medicare Annual Wellness Visit (AWV) [facility] Start: 1953 Screening for malignant neoplasm of colon [facility] Start: 1953 Thyroid stimulating hormone measurement TSH Level [facility] End: 01-07-2022 Basic metabolic 2000 panel - Serum or Plasma Basic Metabolic Panel Lab Routine Daily for 3 Days starting 01/05/2022 until 01/07/2022, 1 completed [email or web address] Phone: Comment on above: Daily for 3 Days sta rting 01/05/2022 until 01/07/2022, 1 completed Continuous pulse oximetry Pulse oximetry, continuous Respiratory Care Routine Every 4hr until discontinued starting 01/01/2022 [email or web address] Phone: Comment on above: Every 4hr until disc ontinued starting 01/01/2022 Culture, Blood 1 Culture, Blood 1 Microbiology STAT 01/01/2022 12:00 AM EDT [email or web address] Phone: Culture, Blood 2 Culture, Blood 2 Microbiology STAT 01/01/2022 12:01 AM EDT [email or web address] Phone: End: 12-31-2021 Intermittent pulse oximetry Pulse Oximetry Spot Check Respiratory Care Routine One Time for 1 Occurrences starting 12/31/2021 until 12/31/2021 [facility] [employer] Work Phone: Comment on above: One Time for 1 Occur rences starting 12/31/2021 until 12/31/2021 End: 06-30-2023 Mra head w/o contrst material [facility] Work Phone: Comment on above: 1 Occurrences starti ng 05/31/2022 until 06/30/2023 Oxygen therapy [Minimum Data Set] Initiate Oxygen Therapy Protocol Respiratory Care Routine As Needed until discontinued starting 12/31/2021 [facility] [employer] Work Phone: Comment on above: As Needed until disc ontinued starting 12/31/2021 Patient Education Colon polyps Hemorrhoids (DC) [facility] Work Phone: Surgical Pathology Surgical Path ology Lab Routine Gall stone pancreatitis Release Upon Ordering for 1 Occurrences starting 01/02/2022 [employer] Work Phone: Comment on above: Release Upon Orderin g for 1 Occurrences starting 01/02/2022 JT-Skzyjghuh-Wi effie ld 201 Work Phone: [facility] NEGATED: Highlighted row has been ruled out! Planned Goals not documented WP-Jgmrkvafz-Forboqt ld 201 Work Phone: Immunizations Immunization Date Immunization Notes Care Provider [facility] 07-15-2020 Moderna (primary 12+ yrs) COVID-19 vaccine, mRNA, spike protein, LNP, PF, 100 mcg/0.5 mL (IOA=824) Radha Burris MD Work Phone: [facility] 07-14-2020 Moderna SARS-CoV-2 Vaccination Generic Provider [facility] 06-17-2020 Moderna (primary 12+ yrs) COVID-19 vaccine, mRNA, spike protein, LNP, PF, 100 mcg/0.5 mL (VWP=595) Radha Burris MD Work Phone: [facility] 06-16-2020 Moderna SARS-CoV-2 Vaccination Generic Provider [facility] 01-28-2016 influenza, injectable, quadrivalent, preservative free Radha Burris MD Work Phone: [facility] 01-28-2016 influenza virus vaccine, unspecified formulation Radha Burris MD Work Phone: [facility] 01-27-2013 tetanus toxoid, reduced diphtheria toxoid, and acellular pertussis vaccine, adsorbed Thorshu Fox Other [facility] NEGATED: Highlighted row has not occurred!04-28-2019 influenza, high dose seasonal, preservative-free Patient Objection Thor Fox Other [employer] Other NEGATED: Highlighted row has not occurred!06-14-2015 influenza, injectable,quadriva lent, preservative free, pediatric Patient Objection Thor Fox Other [employer] Other Payers Date Payer Category Payer Self-pay [id number] 2019 Unknown [id number] 2018 Medicare [id number] 1959 Medicare [id number] 1959 Unknown [id number] 1953 Unknown [id number] 2.16.8 40.1.732008.3.579.2.355 1953 Unknown [id number] 2.16.84 0.1.460114.3.579.2.185 1953 Unknown [id number] 2.16. 840.1.295974.3.579.2.732 1953 Unknown [id number] 2.16.8 40.1.602853.3.579.2.647 1953 Unknown [id number] 2.16.8 40.1.197613.3.579.2.647 1953 Unknown [id number] 2.16.8 40.1.024570.3.579.2.647 1953 Unknown [id number] 2.16. 840.1.342917.3.579.2.175 1953 Unknown [id number] 2.16.84 0.1.861307.3.579.2.593 1953 Unknown [id number] 2.16.84 0.1.280004.3.579.2.593 1953 Unknown [id number] 2.16.84 0.1.338395.3.579.2.593 1953 Unknown [id number] 2.16.84 0.1.004223.3.579.2.593 1953 Unknown [id number] 2.16.84 0.1.971489.3.579.2.593 1953 Unknown [id number] 2.16.84 0.1.800368.3.579.2.593 1953 Unknown [id number] 2.16.84 0.1.659635.3.579.2.593 1953 Unknown [id number] 2.16.84 0.1.760044.3.579.2.593 1953 Unknown [id number] 2.16.84 0.1.662151.3.579.2.593 1953 Unknown [id number] 2.16.84 0.1.940718.3.579.2.593 1953 Unknown [id number] 2.16.84 0.1.598045.3.579.2.593 1953 Unknown [id number] 2.16.84 0.1.596176.3.579.2.593 1953 Unknown [id number] 2.16.84 0.1.572382.3.579.2.593 1953 Unknown [id number] 2.16. 840.1.095977.3.579.2.356 1953 Unknown [id number] 2.16.8 40.1.934146.3.579.2.1046 1953 Unknown [id number] 2.16.8 40.1.252168.3.579.2.6 1953 Unknown [id number] 2.16.8 40.1.096489.3.579.2.6 1953 Unknown [id number] 2.16.8 40.1.287722.3.579.2.6 1953 Unknown [id number] 2.16.8 40.1.669743.3.579.2.1046 1953 Unknown [id number] 2.16. 840.1.700905.3.579.2.356 1953 Unknown [id number] 2.16. 840.1.139767.3.579.2.356 1953 Unknown [id number] 2.16. 840.1.322369.3.579.2.356 1953 Unknown [id number] 2.16. 840.1.067238.3.579.2.356 1953 Unknown [id number] 2.16. 840.1.997502.3.579.2.356 1953 Unknown [id number] 2.16. 840.1.452685.3.579.2.356 1953 Unknown [id number] 2.16. 840.1.889419.3.579.2.356 1953 Unknown [id number] 2.16. 840.1.067955.3.579.2.356 1953 Unknown [id number] 2.16. 840.1.620274.3.579.2.356 1953 Unknown [id number] 2.16. 840.1.680978.3.579.2.356 1953 Unknown [id number] 2.16. 840.1.881286.3.579.2.356 1953 Unknown [id number] 2.16. 840.1.536242.3.579.2.356 1953 Unknown [id number] 2.16. 840.1.960379.3.579.2.356 1953 Unknown [id number] 2.16.8 40.1.905849.3.579.2.1068 1953 Unknown [id number] 2.16.8 40.1.748728.3.579.2.1068 1953 Unknown [id number] 2.16.8 40.1.216491.3.579.2.1244 1953 Unknown [id number] 2.16.84 0.1.439007.3.579.2.1245 1953 Unknown [id number] 2.16.84 0.1.351064.3.579.2.1245 1953 Unknown [id number] 2.16.840 .1.312103.3.579.2.1246 1953 Unknown [id number] 2.16.84 0.1.399686.3.579.2.1259 1953 Unknown [id number] 2.16.84 0.1.827219.3.579.2.1259 1953 Unknown [id number] 2.16.840 .1.661937.3.579.2.1259 Private Health Insurance [id number] Unknown [id number] 2.16.8 40.1.231220.3.579.2.531 Social History Date Type Detail Facility Assertion Unknown if ever smoked [facility] 201 Work Phone: Start: 1955 Sex Assigned At Not on file M [facility] [place] Start: 06-29-2021 End: 10-01-2022 Sex Assigned At [facility] Start: 01-01-2022 Tobacco smoking stat [facility] Never smoked tobacco [employer] Work Phone: Start: 01-01-2022 End: 10-02-2022 Tobacco use and exposure Smokeless tobacco non-user [email or web address] Phone: Start: 12-21-2021 End: 01-31-2023 Exposure to SARS-CoV-2 (event) Not sure [email or web address] Phone: Start: 01-06-2020 End: 10-02-2022 Tobacco smoking status NHIS Ex-smoker [facility] Start: 04-22-1967 End: 01-06-1984 History of tobacco use Current smoker [facility] Start: 04-22-1967 End: 01-06-1984 History of tobacco use Cigarette Smoker [facility] Start: 01-27-2020 End: 05-10-2023 Alcohol intake Current drinker of alcohol (finding) [facility] Start: 01-27-2020 End: 10-01-2022 Alcohol intake [facility] Start: 01-06-2020 History SDOH Alcohol Frequency 2 [facility] Start: 05-04-2021 Alcohol Comment 1 beer once a month [facility] Adult Depression Screening Assessment 1 [facility] Tobacco smoking stat [facility] Tobacco smoking consumption unknown [facility] Work Phone: Start: 1955 Sex Assigned At Male F [facility] Within the last year , have you been afraid of your partner or ex-partner? No [facility] Are you now , , , , never or living with a partner? [facility] How often to you hav e a drink containing alcohol? Monthly or less [facility] How many standard drinks containing alcohol do you have on a typical day? 1 or 2 [facility] How often do you hav e 6 or more drinks on 1 occasion? Never [facility] How hard is it for y ou to pay for the very basics like food, housing, medical care, and heating Not very hard [facility] Do you feel stress - tense, restless, nervous, or anxious, or unable to sleep at night because your mind is troubled all the time - these days [OSQ] Not at all [facility] (I/We) worried wheth er (my/our) food would run out before (I/we) got money to buy more. Never true [facility] Start: 10-02-2022 Tobacco Comment Last smoked:>2 0 years ago [facility] Start: 10-02-2022 Alcohol Comment one beer a sat. Caffeine intake: 2-3 cups per day of coffee [facility] Start: 07-04-2022 Gender identity Identifies as male gender (finding) [facility] Medical Equipment Procedure Code Equipment Code Equipment Origin al Text Equipment Identifier Dates Gas Ispan [employer] Intraocular Vision System [id number] 125gm - [id number] Start: 10-15-2017 Lens Iol Ultrase rt 16 - [id number] Start: 10-15-2017 Sleeve 2.4mm 1.5 mm Silicone 30mm Scleral Round Sterile - [id number] Start: 10-15-2017 Strip Silicone [id number] Retinal 9229 Sterile - [id number] Start: 10-15-2017 Goals Date Patient Goal Desired Activity /State Functional Status Date Assessment Result Facility NEGATED: Highlighted row Functional performance Functional status health issues are not documented Disease QN-Aovrdxkos-Hpkzwk eld 201 Work Phone: Mental Status Date Assessment Result Facility NEGATED: Highlighted row Cognitive function [Interpretation] Cognitive status health issues are not documented Disease PO-Kvjhfgloz-Lxqmgt eld 201 Work Phone: Clinical Notes 2018 to 05-31-2023 María Pearl APRN.CNP - 05/31/2023 10:45 AM EST Note Date & Type Note Facility 05-31-2023 Note HNO ID: [id number] Author: DAE, MARÍA, MED AIDE.[employer] Service: ? Author Type: Nurse Practitioner Type: Progress Notes Filed: 05/31/2023 11:20 Note Text: Yoli Antunez is a 68 year old male. Patient presents with: Follow Up Today I had the opportunity to have a virtual visit with Yoli Antunez I have communicated my name and active licensure. The patient's identity and physical location were verified at the time of this visit. Either the patient or their legal construction representative has been informed of the risks and benefits of -- and alternatives to -- treatment through a remote evaluation and consents to proceed with the evaluation remotely. Impression/Plan from our last visit 01/23/2023: Jamil is a right handed, 67 year old male with a past medical history significant for Paroxysmal Atrial Fibrillation s/p cardiac ablation x3, hypertension, chronic kidney disease stage 3, Thyroid goiter s/p thyroidectomy 2018, hypothyroidism, GI bleed, abdominal aortic aneurysm, chronic daily headaches, ocular migraines, TIA x2, prolonged QT interval presenting today for evaluation of lightheadedness and near syncope. He reports lightheadedness began roughly 3 years ago and has progressively worsened. The events of lightheadedness and near syncope occur while upright and moving. He denies loss of consciousness. Extensive cardiac workup has been unremarkable for cause. He has had extensive neuroimaging including CTA head/neck, MRA head/neck, MRV head, MRI C spine, and MRI Brain that he reports as normal. There has been a concern for autonomic dysfunction. Unfortunately tilt table testing was not able to identify a cause as it was terminated immediately due to symptoms. Orthostatic vital signs negative today, although he endorsed his symptoms of lightheadedness. Neurologic exam raises a concern neuropathy given decreased pinprick, vibratory, and temperature sensation of the bilateral lower extremities. Given the neurologic exam raising a concern for neuropathy, will order a skin nerve biopsy. Lab work ordered to determine a potential etiology of neuropathy. His lightheadedness while upright does raise the concern for an orthostatic hypotension. We will repeat tilt table testing here at [facility]. We reviewed the diagnosis of orthostatic hypotension. We discussed orthostatic hypotension would like explain his symptoms that he is experiencing of lightheadedness and near syncope. Given his history of hypertension and CKD Stage 3, we cannot increase sodium intake. He reports no fluid restrictions. He does not wear compression stockings--he reports it has been recommended. He has never found a pair that has felt comfortable--he was wearing thigh high. He was previously tried on pyridostigmine, but did not tolerate this. He is no longer taking the Benazepril as he is having lower blood pressures. The benazepril was discontinued almost 2 months ago. Jamil reports this has not improved his orthostatic lightheadedness or dizziness. He is no longer taking Diltiazem, and again, he notes that his orthostatic symptoms persist. Blood pressures without the above medications can range between high or low. He has seen SBP range of 100-150 mmHg. An average blood pressure is around 120/70. He has seen Jackie Banks CNP on March 05, [address] on Ivabradine for heart rate control. He was seen by Dr. Vilchis at the [facility] yesterday. Dr. Vilchis feels that Jamil has sick sinus syndrome. He is going to have a pacemaker placed. Jamil is going to have an echocardiogram and stress test next week. Pacemaker to follow the above testing. Skin nerve biopsy here at [facility] not indicative of small fiber neuropathy. Abnormality only at the distal thigh. Lab work essentially normal. Mild elevation in kappa light chains which may be secondary to kidney disease. Will repeat level. Tilt table test January 24, 2023: - The test was stopped early at [...] developed on his prior tilt as well. Medications Reviewed ergocal (more content not included)... [facility] 05-31-2023 History of Present illness Narrative Yoli Antunez is a 68 year old male. Patient presents with: Follow Up Today I had the opportunity to have a virtual visit with Yoli Antunez I have communicated my name and active licensure. The patient's identity and physical location were verified at the time of this visit. Either the patient or their legal construction representative has been informed of the risks and benefits of -- and alternatives to -- treatment through a remote evaluation and consents to proceed with the evaluation remotely. Impression/Plan from our last visit 01/23/2023: Jamil is a right handed, 67 year old male with a past medical history significant for Paroxysmal Atrial Fibrillation s/p cardiac ablation x3, hypertension, chronic kidney disease stage 3, Thyroid goiter s/p thyroidectomy 2018, hypothyroidism, GI bleed, abdominal aortic aneurysm, chronic daily headaches, ocular migraines, TIA x2, prolonged QT interval presenting today for evaluation of lightheadedness and near syncope. He reports lightheadedness began roughly 3 years ago and has progressively worsened. The events of lightheadedness and near syncope occur while upright and moving. He denies loss of consciousness. Extensive cardiac workup has been unremarkable for cause. He has had extensive neuroimaging including CTA head/neck, MRA head/neck, MRV head, MRI C spine, and MRI Brain that he reports as normal. There has been a concern for autonomic dysfunction. Unfortunately tilt table testing was not able to identify a cause as it was terminated immediately due to symptoms. Orthostatic vital signs negative today, although he endorsed his symptoms of lightheadedness. Neurologic exam raises a concern neuropathy given decreased pinprick, vibratory, and temperature sensation of the bilateral lower extremities. Given the neurologic exam raising a concern for neuropathy, will order a skin nerve biopsy. Lab work ordered to determine a potential etiology of neuropathy. His lightheadedness while upright does raise the concern for an orthostatic hypotension. We will repeat tilt table testing here at [facility]. We reviewed the diagnosis of orthostatic hypotension. We discussed orthostatic hypotension would like explain his symptoms that he is experiencing of lightheadedness and near syncope. Given his history of hypertension and CKD Stage 3, we cannot increase sodium intake. He reports no fluid restrictions. He does not wear compression stockings--he reports it has been recommended. He has never found a pair that has felt comfortable--he was wearing thigh high. He was previously tried on pyridostigmine, but did not tolerate this. He is no longer taking the Benazepril as he is having lower blood pressures. The benazepril was discontinued almost 2 months ago. Jamil reports this has not improved his orthostatic lightheadedness or dizziness. He is no longer taking Diltiazem, and again, he notes that his orthostatic symptoms persist. Blood pressures without the above medications can range between high or low. He has seen SBP range of 100-150 mmHg. An average blood pressure is around 120/70. He has seen Jackie Banks CNP on March 05, [address] on Ivabradine for heart rate control. He was seen by Dr. Vilchis at the [facility] yesterday. Dr. Vilchis feels that Jamil has sick sinus syndrome. He is going to have a pacemaker placed. Jamil is going to have an echocardiogram and stress test next week. Pacemaker to follow the above testing. Skin nerve biopsy here at [facility] not indicative of small fiber neuropathy. Abnormality only at the distal thigh. Lab work essentially normal. Mild elevation in kappa light chains which may be secondary to kidney disease. Will repeat level. Tilt table test January 24, 2023: - The test was stopped early at [...] developed on his prior tilt as well. Medications Reviewed ergocalciferol 50,000 unit capsule (VITAMIN D2, DRISDOL) Take 50,000 Units by mouth one time a week. calcium carbonate 500 mg calcium (1,250 mg) chewable tablet Take 1 tablet by mouth once daily. calcitriol (ROCALTROL) 0.25 mcg capsule Take 0.25 mcg by mouth once daily. aspirin, enteric coated (ASPIRIN, ENTERIC COATED) 81 mg EC tablet Take 81 mg by mouth once daily. nitroglycerin sublingual (NITROQUICK) 0.4 mg SL tablet Dissolve 0.4 mg under the tongue every 5 minutes as needed. levothyroxine (LEVOXYL) 175 mcg tablet Take 1 tablet by mouth daily before breakfast. pramipexole (MIRAPEX) 1 mg tablet Take 2 mg by mouth daily at bedtime. 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 Nuclear Sclerotic Cataract, Left Persistent Atrial Fibrillation (Hcc) Atrial Flutter (Hcc) Primary Hypertension Cad (Coronary Artery Disease) Ckd (Chronic Kidney Disease) Ada (Obstructive Sleep Apnea) Tia (Transient Ischemic Attack) Thyroid Disease Gerd (Gastroesophageal Reflux Disease) Restless Leg Calculus of Gallbladder Idiopathic Acute Pancreatitis Without Infection Or Necrosis Chronic Migraine Without Aura, With Intractable Migraine, So Stated, With Status Migrainosus PAST SURGICAL HISTORY Procedure Laterality Date APPENDECTOMY 04/22/1978 ATRIAL FIBRILLATION/FLUTTER ABLATION 12/08/2019 x 3 LAMINECTOMY W/O FFD 1/2 VERT SEG LUMBAR 04/22/1989 Laminectomy, lumbar PAST SURGICAL HISTORY OF cervical spine - 3 plates/screws PAST SURGICAL HISTORY OF s/p retinal detachment repair THYROIDECTOMY TOTAL/COMPLETE 09/2018 TONSILLECTOMY HX TOTAL KNEE REPLACEMENT Bilateral Social History Tobacco Use Smoking status: Former Packs/day: 2.00 Years: 15.00 Additional pack years: 0.00 Total pack years: 30.00 Types: Cigarettes Quit date: 09/13/1983 Years since quittin.7 Smokeless tobacco: Never Vaping Use Vaping Use: Never used Substance Use Topics Alcohol use: Yes Comment: 1 beer once a month Drug use: Never family history includes Aneurysm in his father, paternal grandfather, and paternal uncle; Cancer in his father, mother, and paternal uncle; Glaucoma in his paternal grandmother; Heart in his maternal grandfather and maternal grandmother; Heart (age of onset: 54) in his paternal grandfather; Kidney Disease in his brother; Stroke in his mother; joint problems in his daughter; spina bifida occulta in his son. IMPRESSION/PLAN: Orthostatic hypotension Tilt table testing indicative of orthostatic hypotension. This would likely explain his symptoms of orthostatic lightheadedness and near syncope. He notes that since the tilt table test, his Benazepril and Diltiazem have been discontinued, but his orthostatic symptoms persist. He was seen by Dr. Vilchis at [facility] who would like to place a pacemaker due to a concern of sick sinus syndrome. We reviewed that I would not recommend making any medication changes until after the pacemaker has been placed. We did review conservative measures for OH such as increased water intake and compression stockings. He cannot increase sodium intake given hypertension tendency and CKD stage 3. Previously he was tried on pyridostigmine, but did not tolerate this. We will have him come for an IN PERSON visit in 3 months to evaluate blood pressures. We may be limited from a medication perspective given his tendency toward hypertension. I spent a total of 15 minutes on the date of the service which included preparing to see the patient, [id number] patient care, completing clinical documentation, obtaining and/or reviewing separately obtained history, counseling and educating the patient/family/caregiver, and ordering medications, tests, or procedures. 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 María Pearl MSN, MED AIDE, [employer]ER-C documented in this encounter [facility] 05-30-2023 Note [facility]NC[facility] DISORD[facility]INIC Reason for Consultation: Sick sinus syndrome/tachybradycardia syndrome HPI: Yoli Antunez Jr. is a 68 y.o. year old with past medical history of Hypertension, coronary artery disease, paroxysmal atrial fibrillation,And bradycardia. He has been experiencing multiple episodes of lightheadedness and near syncope. 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 He has an implantable loop recorder in place. Analysis of the device reveals that he alternates between periods of tachycardia and possibly atrial flutter with periods of profound bradycardia. He has had several A-fib fib ablations however continues to have issues. He has a Watchman device implanted in his left atrial appendage because he continues to have falls despite his episodes of atrial fibrillation. After carefully reviewing his history physical findings and the data from his implantable loop recorder I believe he is developing a sick sinus syndrome/tachybradycardia syndrome and he alternates between periods of atrial fibrillation and flutter and bradycardia. The bradycardic events preclude any pharmacotherapy for the tachycardias. Given the fact that he is at high risk of falling and in a profession where he if he falls he could seriously injure himself I believe he should undergo dual-chamber pacemaker insertion. I went over this in detail with him and he agrees to proceed. Prior to the procedure I would like him to get a stress test as well as a echocardiogram. PMH: Past Medical History: Diagnosis Date Arrhythmia [...] W AND/OR WO IV CONTRAST AHMADI CONVERSION MR HEAD ANGIO WO IV CONTRAST 07/09/2022 MR HEAD ANGIO WO IV CONTRAST 07/09/2022 [facility] MR IMAGING MR NECK ANGIO WO IV CONTRAST 07/09/2022 MR NECK ANGIO WO IV CONTRAST 07/09/2022 [facility] MR IMAGING NECK SURGERY THYROIDECTOMY SH: Social Determinants of Health Tobacco Use: Medium Risk (04/03/2023) Patient History Smoking Tobacco Use: Former Smokeless Tobacco Use: Former Passive Exposure: Not on file Alcohol Use: Not on file Financial Resource Strain: Not on file Food Insecurity: Not on file Transportation Needs: Not on file Physical Activity: Not on file Stress: Not on file Social Connections: Not on file Intimate Partner Violence: Not on file Depression: Not at risk (03/05/2023) PHQ-2 PHQ-2 Score: 0 Housing Stability: Not on file Utilities: Not on file Meds: Current Outpatient Medications on File Prior to Visit Medication Sig Dispense Refill aspirin 81 mg chewable tablet Chew 1 tablet (81 mg) in the morning. Do not start before March 08, 2022. 30 tablet 3 budesonide ER (Uceris) 9 mg tablet Take 9 mg by mouth in the morning. calcitriol (Rocaltrol) 0.25 mcg capsule 1 (one) time each day at the same time. cyanocobalamin (Vitamin B-12) 1,000 mcg tablet Take 1.25 mcg by mouth every 7 (seven) days. ivabradine (Corlanor) 5 mg tablet Take 1/2 tablet twice daily 60 tablet 11 levothyroxine (Synthroid, Levoxyl) 150 mcg tablet Take 200 mcg by mouth every other day. metoprolol tartrate (Lopressor) 25 mg tablet Take 0.5 tablets (12.5 mg) by mouth in the morning and at bedtime. 90 tablet 3 nitroglycerin (Nitrostat) 0.[address] 0.4 mg under the tongue if needed each day. topiramate (Topamax) 25 mg tablet Take 1 tablet (25 mg) by mouth in the morning and at bedtime. 60 tablet 11 midodrine (Proamatine) 5 mg tablet Take 1 tablet (5 mg) by mouth in the morning, at noon, and at bedtime. Every breakfast, noon and dinner time. Do not lie flat four hours after dose. (Patient not taking: Reported on 2023) 90 tablet 11 [DISCONTINUED] dilTIAZem CD (Cardizem CD) 180 mg 24 hr capsule Take 180 mg by mouth in the morning. No current facility-administered medications on file prior to visit. ROS: Cardio Basic Cardiovascular Symptoms: Potation's, near syncope, lightheadedness, no leg edema, no syncope, no orthopnea, no PND, no claudication, Constitutional Constitutional: no fever, no night sweats, no significant weight gain, no significant weight loss, exercise intolerance Eyes Eyes: no dry eyes, no irritation, no vision change ENMT Ears: no difficulty hearing, no ear pain Nose: no frequent nosebleeds, Mouth/Throat: no sore throat, no bleeding gums, no snoring, no dry mouth, (more content not included)... [facility] 2023 Note [facility]rophysiology Consult Note Reason for visit: dysautonomia 05/21/23: He is here for ER follow-up for chest pain he was evaluated at [facility] recently for chest pain but was considered stable and was recommended outpatient Lexiscan stress test. he states he is taken nitro for his chest pain with relief but has limited time to do since he cannot take due to having baseline hypotension I discussed with patient will order for Lexiscan stress versus exercise given he will likely be intolerant of exercise given dysautonomia he is getting ivabradine filled by specialty pharmacy and is waiting on picking that up loop data review 2023 shows an episode of Svt 05/10/23 which lasted 14 seconds, which was marked as SVT but per my review it does look like afib given no visible P waves, I made the parameters little more sensitive to see if we can his other tachycardia/palpitations he has been experiencing, I discussed with patient he needs to start marking his symptoms on the monitor for us to correlate ECG to symptoms 01/21/23 HPI: Yoli Peoples Harmony Garcia is a 68 y.o. year old with past medical history [...] table scheduled as well. He has a [employer] loop and I reviewed his loop data, [...] W AND/OR WO IV CONTRAST AHMADI CONVERSION MRA HEAD WO IV CONTRAST 07/09/2022 MR HEAD ANGIO WO IV CONTRAST 07/09/2022 [facility] MR IMAGING MRA NECK WO IV CONTRAST 07/09/2022 MR NECK ANGIO WO IV CONTRAST 07/09/2022 [facility] MR IMAGING NECK SURGERY THYROIDECTOMY SH: Social Determinants of Health Tobacco Use: Medium Risk (04/03/2023) Patient History Smoking Tobacco Use: Former Smokeless Tobacco Use: Former Passive Exposure: Not on file Alcohol Use: Not on file Financial Resource Strain: Not on file Food Insecurity: Not on file Transportation Needs: Not on file Physical Activity: Not on file Stress: Not on file Social Connections: Not on file Intimate Partner Violence: Not on file Depression: Not at risk (03/05/2023) PHQ-2 PHQ-2 Score: 0 Housing Stability: Not on file Utilities: Not on file Allergies: Allergies Allergen Reactions Penicillins Other As a child Tikosyn [Dofetilide] Other aphasia Vancomycin Itching Itching hands/feet Weight: 110kg Visit Vitals BP 109/71 (BP Location: Left arm, Patient Position: Sitting) Pulse 71 Ht 1.981 m (6' 6 ) Wt 110 kg (243 lb) SpO2 97% BMI 28.08 kg/m??? Smoking Status Former BSA 2.46 m??? Meds: Current Outpatient Medications on File Prior to Visit Medication Sig Dispense Refill aspirin 81 mg chewable tablet Chew 1 tablet (81 mg) in the morning. Do not start before March 08, 2022. 30 tablet 3 budesonide ER (Uceris) 9 mg tablet Take 9 mg by mouth in the morning. calcitriol (Rocaltrol) 0.25 mcg capsule 1 (one) time each day at the same time. cyanocobalamin (Vitamin B-12) 1,000 mcg tablet Take 1.25 mcg by mouth every 7 (seven) days. dilTIAZem CD (Cardizem CD) 180 mg 24 hr capsule Take 180 mg by mouth in the morning. levothyroxine (Synthroid, Levoxyl) 150 mcg tablet Take 200 mcg by mouth every other day. metoprolol tartrate (Lopressor) 25 mg tablet Take 0.5 tablets (12.5 mg) by mouth in the morning and at bedtime. 90 tablet 3 nitroglycerin (Nitrostat) 0.[address] 0.4 mg under the tongue if needed each day. topiramate (Topamax) 25 mg ta (more content not included)... [facility] 2023 Note Patient here for [facility] ED for chest pain. He's been taking nitroglycerin lately but has to be careful he says, due to already low BP. Harriet Shen CNP switched him to Corlanor, but he's still in the process of obtaining this. His HR has been down in the 40's and up into the 170's . Harriet reduced his diltiazem to 180mg daily. Review of Systems Cardiovascular: Positive for chest pain, dyspnea on exertion, irregular heartbeat, leg swelling (resolves by morning), near-syncope, palpitations and syncope. Musculoskeletal: Positive for arthritis, back pain, joint pain and myalgias. Neurological: Positive for dizziness, headaches, light-headedness and sensory change. All other systems reviewed and are negative. [facility] 05-20-2023 Evaluation note Encounter Date Diagnosis Assessment Notes Apr, Abdominal pain (ICD-10 - R10.9) Apr, Diarrhea (ICD-10 - R19.7) [employer] Other 01-26-2024 NotePrior Authorization for Corlanor has been approved 04/20/2023-05/19/2024. Case ID/Authorization Number:[id number] No letter to scan at this time. $133 copay, may be eligible for copay card, not sure if insurance is Part D? Calling pt to discuss fill/confirm insurance type. Pt likely has Part D insurance, but he is not sure. If it is part D, he will not be eligible for copay card, we will have to try PAP. He has an appt on 05/22 @[facility] and will decide at/after that appt on this medication. PAP form is in folder and scanned into media tab, need financial info, will likely need to apply (and be denied) for Extra Help. I am sending a msg to MD with this info as well prior to appt, so he can fill out the forms ANNABELLE. F/U check in with pt on to see if he wants to do PAP/has signed the forms in appt. Roly Cuenca, [facility] 05/20/23 at 2:41 PM[facility] NotePatient called back and I discussed Roly's complete note. Patient is going to apply for Extra Help, I am sending all the information to him via email ( ). Wendi Estrada, [facility] 05/21/23 2:44 PM[facility]-2024 NoteReceived provider portion. Marge Funes, AmilcarD, [facility] 05/29/23 2:[address] [facility] [phone] [facility]01-26-2024 NoteSpoke with the patient. Patient stated that the insurance sent a letter in the mail on 05/20/2023 stating stating that it was covered. I told the patient that even with the insurance covering the medication, it will still cost $133. T he patient also stated that he has sent the application to [employer]. I told him if he could send us the application (already filled out from the first time), we can send in the application for him on his behalf. He stated that he is going to get on the computer and will email the application to us before we close at 5PM. F/U within the next 2-3 days for the email and then send in the application to [employer]. Soco Schafer, Patient'S Librarian 05/28/23 3:29 PM [facility] [phone] [facility] of [facility]01-26-2024 NotePatient called back today and would like us to send him the PAP form. He looked up the Extra Help information and he said that he misses it by $100. We informed him that he still has to apply because we need a denial letter. I sent him the PAP via e-mail for him to start filling that out. Wendi Estrada, [facility] 05/22/23 12:51 PMUnOur Lady of Mercy Hospital01-26-2024 NoteSpecialty Pharmacy Note: Corlanor Supervising Physician & Clinic:??Yandel Shen NP/ Mono Christie MD & [facility] Yoli Peoples Harmony Garcia is a 67 y.o. year old male patient with PMH of an autonomic disorder Past Medical History: Diagnosis Date Arrhythmia Atrial fibrillation (CMS/HCC) Chronic kidney disease stage 3 b Coronary artery disease Disease of thyroid gland Hypertension Pancreatitis, gallstone TIA (transient ischemic attack) PharmD consulted for evaluation of Corlanor for treatment of Disorder of the autonomic nervous system (Diagnosis Code: G90.9). ?? Prescribed Dosing: Corlanor 5 mg tablet Take 1/2 tablet by mouth twice daily Previous medications tried: Metoprolol Diltiazem Midodrine Ranolazine Venlafaxine The following drug interactions were noted: Diltiazem with Corlanor: Per provider, patient will stop diltiazem once Corlanor is started. Diltiazem may increase the serum concentrations of Corlanor. No renal or hepatic dose adjustments necessary. Vitals: Ht Readings from Last 1 Encounters: 04/03/23 1.981 m (6' 6 ) Wt Readings from Last 1 Encounters: 04/03/23 114 kg (251 lb) BMI Readings from Last 1 Encounters: 04/03/23 29.01 kg/m??? BP Readings from Last 1 Encounters: 04/03/23 116/80 Pulse Readings from Last 1 Encounters: 04/03/23 79 Evaluation: Based on trial and failure of above medications, patient is an appropriate candidate for this medication.? Follow-up: LVM for patient that we received Rx and need to submit PA. Need to submit PA via CMM. Shelly Murcia, P4 Patient'S Librarian 05/17/23 4:12 PM [facility] [phone] Marge Funes PharmD, HOSSEINCP 05/20/23 1:07 PM [facility] [phone] [facility]01-26-2024 NoteSpoke to the patient. I think when he was speaking to [employer] yesterday he meant he had sent everything in for the Medicare Extra Help application online. He called back and spoke to Wendi and said he didn't have anything to send us for that application because it was online (which makes sense if he was talking about the Extra Help application). He told me today that he hasn't sent anything in to [employer]. He will fill out that paperwork and send to me in an email today. I explained that [employer] usually requires the Extra Help denial but that it might take weeks to get that letter so we can go ahead and submit the [employer] PAP application without it and see what they say. Once I get his portion and the provider portion I will fax everything in. I am emailing the provider portion today, doesn't look like that was done. Marge Funes PharmD, HOSSEINCP 05/29/23 10:11 AM [facility] [phone] Medical Specialty Hospital [facility]12-26-2023 Procedure note [facility]12-13-2023 NoteCardiovascular Medicine [facility] SUBJECTIVE Chief Complaint Patient presents with Atrial [...] (CMS/HCC) Essential hypertension Coronary artery disease involving [place] coronary artery of [place] heart without angina pectoris Recurrent falls History [...] (360 mg) by m (more content not included)...[facility]12-13-2023 NotePatient here for 1 year follow up s/p Watchman implant. Review of Systems Cardiovascular: Positive for chest pain, dyspnea on exertion, irregular heartbeat, leg swelling (resolves by morning), near-syncope, palpitations and syncope. Musculoskeletal: Positive for arthritis, back pain, joint pain and myalgias. Neurological: Positive for dizziness, headaches, light-headedness and sensory change. All other systems reviewed and are negative.[facility] 04-01-2023 Evaluation note* Encounter Date Diagnosis Assessment Notes Treatment Notes Treatment Clinical Notes Mar, Abdominal pain (ICD-10 - R10.9) Mar, Diarrhea (ICD-10 - R19.7) [facility] Other 11-29-2023 Evaluation note* Encounter Date Diagnosis Assessment Notes Treatment Notes Treatment Clinical Notes Feb, Diarrhea (ICD-10 - R19.7) Feb, Hiatal hernia (ICD-10 - K44.9) [facility] Other 11-14-2023 NoteSubjective Yoli Antunez Jr. is a 67 y.o. male we follow for autonomic dysfunction, orthostatic hypotension. He has episodes of aphagia lasting 1-12 hours associated with presumed drop in BP. He has had expressive aphagia on tilt table testing at the [facility] Dec 2022 (see below). Duration about 12 hours Chief Complaint: Neurogenic orthostatic hypotension Fludrocortisone: no effective Pyridostigmine: side effects Effexor: not effective BP labile Highest BP 150/90mmhg Lowest BP 82/46mmhg Review of Systems Cardiovascular: Positive for near-syncope and syncope. Last syncope Dec 2022. On hay wagon. Mcrae it coming, did not get off wagon fast enough. Syncope. No trauma. [place] [facility]. 24 hour observation. BP 80/40mmhg Over [...] but had expressive language aphagia. Lab Review: [facility] Tilt. * FINAL IMPRESSIONS * - The [...] no improvement I consulted with Dr. Jimenez, ged instructor in clinic and decision made to have him evaluated in ED. I called the ED attending and reported the admission, to which she agreed he may need a stroke work up.[facility]11-06-2023 NoteHNO ID: [id number] Author: Joann Stark PA-C Service: ? Author Type: Physician Body Die Maker Type: Progress Notes Filed: 02/25/2023 2:52 PM Note Text: Skin Biopsy Procedure Note Skin Biopsy Accession Number: [id number] Biopsy Date: 02/25/2023 Referring physician: María Pearl [...] Procedure Note Procedure confirmed with provider and air support control officer. Yes, left leg 2 skin biopsies. The [...] home. Specimens were labeled and sent to [facility] Cutaneous Nerve Laboratory. Procedure was performed by: Joann Stark PA-C Assistance in supply/equipment preparation performed by: DAVID Downs Sign out is complete.[facility]11-06-2023 History of Present illness Narrative* Joann Stark PA-C - 02/25/2023 2:09 PM EST Skin Biopsy Procedure Note Skin Biopsy Accession Number: [id number] Biopsy Date: 02/25/2023 Referring physician: María Pearl [...] Procedure Note Procedure confirmed with provider and air support control officer. Yes, left leg 2 skin biopsies. The [...] home. Specimens were labeled and sent to [facility] Cutaneous Nerve Laboratory. Procedure was performed by: Joann Stark PA-C Assistance in supply/equipment preparation performed by: DAVID Downs Sign out is complete. documented in this encounterT[facility] Hospital10-17-2023 Miscellaneous Notes* Telephone Encounter - Shivani Ambriz RN - 02/05/2023 1:00 PM EDT Images from the original note were not included. María Pearl APRN.FILTER WASHER AND PRESSER You 7 minutes ago (12:52 PM) This is a normal result. [place] YAMILA Carnes, RN * Telephone Encounter - Shivnai Ambriz RN - 02/05/2023 12:48 PM EDT Images from the original note were not included. Copper: YAMILA Carnes, RN * Telephone Encounter - Aydee Hunter - 02/05/2023 12:06 PM EDT Scanned in results from [facility] for review documented in this encounterToledo Hospital10-12-2023 History of Present illness Narrative* Yossi Chen [...] and scan are done. [facility] Work Phone: 1(731) 892-164010-12-2023 Instructions* Patient Instructions* Yossi Chen MD - 01/31/2023 3:00 PM EDT I will get stool culture and CT scan to figure out the reason for the abdominal pain and diarrhea documented in this encounterSalem [facility] Work Phone: 1(361) 220-999110-09-2023 Miscellaneous Notes* Telephone Encounter - Paul Burns RN - 01/28/2023 4:08 PM EDT Images from the original note were not included. María Pearl APRN.FILTER WASHER AND PRESSER You 6 hours ago (9:39 AM) I have a message out to headache clinic about adjusting his medication. YAMILA Cage, RN, BA documented in this encounterToledo Hospital10-09-2023 Miscellaneous Notes* Telephone Encounter - Paul Burns RN - 01/28/2023 3:39 PM EDT JESSICA sent MCM to patient. Patient read. YAMILA Cage, RN, BA documented in this encounterToledo Hospital10-09-2023 Miscellaneous Notes* Telephone Encounter - Paul Burns RN - 01/28/2023 10:43 AM EDT Images from the original note were not included. María Pearl APRN.FILTER WASHER AND PRESSER You 15 minutes ago (10:27 AM) Thank you. Appears normal. YAMILA Vivar, RN, BA * Telephone Encounter - Paul Burns RN - 01/28/2023 9:58 AM EDT Images from the original note were not included. YAMILA Cage, RN, BA * Telephone Encounter - Aydee Hunter - 01/28/2023 9:36 AM EDT Scanned in results from [facility] for review documented in this encounterToledo Hospital10-05-2023 NoteHNO ID: [id number] Author: Peggy Bravo RN Service: ? Author [...] Staff involved in procedure: Peggy Bravo RN; Braina Emmanuel RN Procedure Finish [facility]: [facility]23 NoteHNO ID: [id number] Author: María Pearl APRN.FILTER WASHER AND PRESSER Service: ? 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 The lightheadedness and dizziness does NOT [...] follow with the headache clinic here at [facility]. On May 23, 2022 he did complete [...] He was evaluated by cardiology, Jackie Banks CNP, at the [facility]. Jackie had a concern for autonomic dysfunction. She placed Jamil on pyridostigmine, but he had significant diarrhea and it was thus discontinued. He has constant bilateral tinnitus. He states it sounds like an air gabriel. He has not seen ENT. He has a ILR and watchman. These have not revealed a cause for his lightheadedness or dizziness. He did see his ged instructor this week who felt his symptoms are [...] focal stenosis, occlusion, or aneurysmal dilatation. Complete mille lacs of Michel. He is brought in today [...] not taking: Reported on (more content not included)...[facility]10-04-2023 NoteHNO ID: [id number] Author: Kristen Wagner OCCA Service: ? Author Type: Diffusion Furnace Operator Type: Progress Notes Filed: 01/23/2023 10:15 AM [...] How severe is this focusing problem? : ModerateSumma Health W[facility] 01-21-2023 NoteUT Electrophysiology Consult Note Reason for visit: dysautonomia HPI: Yoli M Harmony Garcia is a 67 y.o. year old with [...] table scheduled as well. He has a [employer] loop and I reviewed his loop data, [...] MR HEAD ANGIO WO IV CONTRAST 07/09/2022 [facility] MR IMAGING MRA NECK WO IV CONTRAST 07/09/2022 MR NECK ANGIO WO IV CONTRAST 07/09/2022 [facility] MR IMAGING NECK SURGERY THYROIDECTOMY SH: Social [...] no difficulty hearing, no (more content not included)...[facility]10-02-2023 NotePatient here for 1 mo follow up. He was started on Crestor and Ranexa by Dr. Gonsalez last month. He didn't start Crestor because my cholesterol is good . He did start Ranexa but doesn't think it's helping him with angina. Says he actually feels worse. He presented to [facility] ED last week for CVA-like symptoms but [...] light-headedness. All other systems reviewed and are negative.[facility] 12-31-2022 NoteHNO ID: [id number] Author: Sarbjit Richardson APRN.FILTER WASHER AND PRESSER Service: ? Author Type: Nurse Practitioner Type: Progress Notes Filed: 12/31/2022 5:04 PM Note Text: [facility] Follow up visit December 31, 2022 Chief [...] He was evaluated by Cardiology at the [facility] for syncopal episodes. Likely a neurocardiogenic type [...] dizziness . put in in the front barrel loader and cleaner and helped him to the house - [...] essentially unremarkable including troponins and ECG 09/11/2022 [facility]- Cardiology - Jackie Banks LAST GREASER wrote: I copied and pasted my initial consult note from [facility] date 07/20/2022 for continuity of care: Hx paroxysmal atrial fibrillation. Undervent a watchman device implant at [facility] 03/06/2022. History of CAD. AAA not increased, [...] Last evaluated one month ago by neurology [facility]. Recent MRA MRV. HPI: Syncope began about [...] Items Addressed This Visit Referred back to [facility]; Headache 1 Onset: - Migraine headache s Location: frontal (occipital vertex) Quality/ (more content not included)...[facility]09-11-2023 History of Present illness Narrative* Sarbjit Richardson, BRENNA.FILTER WASHER AND PRESSER - 12/31/2022 3:15 PM EDT [facility] Follow up visit December 31, 2022 Chief [...] He was evaluated by Cardiology at the [facility] for syncopal episodes. Likely a neurocardiogenic type [...] dizziness . put in in the front barrel loader and cleaner and helped him to the house - [...] essentially unremarkable including troponins and ECG 09/11/2022 [facility]- Cardiology - Jackie Banks LAST GREASER wrote: I copied and pasted my initial consult note from [facility] date 07/20/2022 for continuity of care: Hx paroxysmal atrial fibrillation. Undervent a watchman device implant at [facility] 03/06/2022. History of CAD. AAA not increased, [...] Last evaluated one month ago by neurology [facility]. Recent MRA MRV. HPI: Syncope began about [...] Items Addressed This Visit Referred back to [facility]; Headache 1 Onset: - Migraine headache s [...] Date AAA (abdominal aortic aneurysm) without rupture ([facility]) Arthritis Atrial fibrillation/flutter CAD (coronary artery disease) CKD (chronic kidney disease) stage 3, GFR 30-59 ml/min ([facility]) Ex-smoker Gastric ulcer GERD (gastroesophageal reflux disease) Gout History of GI bleed HLD (hyperlipidemia) Hypertension 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 ADA treated with BiPAP Peripheral neuropathy Restless leg syndrome TIA (transient ischemic attack) x 2 ALLERGIES Allergen Reactions Penicillins Unknown Tikosyn [Dofetilide] Other: See Comments Aphasia, dizzy, muscle cramps Vancomycin Anaphylaxis MR neck / head angio 07/09/2022- at [facility] Impression No gross evidence for flow-limiting stenosis of bilateral extrarenal vertebral or carotid arteries accounting for extensive patient motion artifact. If persistent concern for an abnormality of the carotid or vertebral arteries, consider CTA if clinically indicated. Impression No focal stenosis, occlusion, or aneurysmal dilatation. Complete mille lacs of Michel. CT brain 05/23/2022 Impression *Negative [...] osteopenia, and partially imaged atlantoaxial arthritic changes. Billboard Mechanic (topogram) images: No additional findings. HEADACHE SCORES: [...] articulation, and clear,coherent, and relevant. Short and long-term memory, cognition and general fund of knowledge [...] is normal. Unsteady with tandem. IMPRESSION: Yoli Audritsh is a 67 year old year old [...] followed by aphasia. He was evaluated in [place] for syncope - felt it was neurocardiogenic [...] 6 months, PRN . Level of service: [facility] level 5 (40-54 min). Time spent 45 min on the day of service, which included preparing to see the patient, [id number]-[id number] patient care, completing clinical documentation, obtaining and/or reviewing separately obtained history, performing a medically appropriate examination, counseling and educating the patient/family/caregiver, and ordering medications, tests, or procedures. Sarbjit Richardson APRN.NEETU Headache Section [facility] December 31, 2022 5:03 PM documented in this encounterToledo Hospital09-08-2023 NotePatient here for follow up ED visit at [facility]. 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 and suddenly starting having chest pain, dizzniess, diaphoresis, and SOB.[facility]09-08-2023 NoteUTP CARDIOLOGY PROGRESS NOTE HPI: Yoli Antunez [...] is maintained on a (more content not included)...[facility]08-03-2023 NoteSend Summary: Discharge Summary Providers: Provider RoleProvider Name Radha Jorge Abraham PrimaryHohman, Jennifer Note Recipients: Radha Burris MD - [id number] [] Discharge: Summary: Admission Date: .21-Nov-2022 05:06:00 [...] time of discharge: Full Code Electronic Signatures: IgorSivan (MED AIDE-FILTER WASHER AND PRESSER) (Signed 22-Nov-2022 12:13) Authored: Send Summary, Summary Content, Ongoing Care, DNR Status Yossi Chen) (Signed 22-Nov-2022 12:27) Authored: Summary Content, Ongoing Care, Note Completion Last Updated: 22-Nov-2022 12:27 by Yossi Chen)[facility] 11-21-2022 NotePost Operative Note: PreOp Diagnosis: symptomatic hiatal hernia Post-Procedure Diagnosis: same Procedure: 1. Laparoscopic repair of Type 3 paraesophageal hernia with Toupet wrap and gastroscopy 2. 3. 4. 5. Surgeon: April Resident/Fellow/Other Body Die Maker: Adrián/Elio Estimated Blood Loss (mL): none Specimen: [...] circumferentially. The retroesophageal window was created. The [place] drain was placed. I proceeded with mediastinal [...] esophagus to the right side. A lighted 56-Paraguayan bougie was placed. The shoeshine maneuver was [...] #1 Ethibond with a Tony-Ran in a jeqaao-fc-noyjg fashion. The liver retractor was removed. The [...] Completion Last Updated: 21-Nov-2022 13:27 by Yossi Chen)[facility] 11-21-2022 History of Present illness [id number] patient who underwent laparoscopic repair of paraesophageal [...] it down withwater. Denies heartburn and acid reflux.-[facility] [address] DO Work Phone: 1(493) [phone] History of Present illness Narrative 67-year-old patient [...] reflux, heartburn and having less coughing with mealEast[facility]land [facility] [address] DO Work Phone: 1([phone]) 820-663108-02-2023 NoteHistory & Physical Reviewed: I have reviewed [...] Completion Last Updated: 21-Nov-2022 07:15 by Yossi Chen)[facility] 11-16-2022 Miscellaneous Notes* Telephone Encounter - Jessica Scott - 11/16/2022 5:55 PM EDT Received faxed report of medical records done at . Uploaded via [employer], will be available in [employer] for review shortly. documented in this encounterToledo Hospital07-03-2023 Miscellaneous Notes* Telephone Encounter - Sarbjit Richardson APRN.CNP - 10/22/2022 4:33 PM EDT Opened in error Sarbjit Richardson APRN.CNP documented in this encounterToledo Hospital06-30-2023 NoteTEE from 04/10/2022 showing watchman implant in good position, no device leak noted and no thrombosisUnOur Lady of Mercy Hospital06-30-2023 NoteThis post watchman implantation with CHANTELLE reviewed from 04/10/2022 showed watchman implant in good position with no thrombosis and no device leak Is on aspirin daily and to [place] him for rate controlUnOur Lady of Mer[facility] Hospital06-30-2023 NoteHypertension is well controlled continue current med regimeUnOur Lady of Mercy Hospital06-30-2023 NoteCoronary artery disease is stable without concerning symptoms Continue GDMT continue risk factor modifications- heart healthy diet, regular exercise as tolerated and continue all medications.[facility] 10-19-2022 NotePatient here for follow up 6 [...] light-headedness. All other systems reviewed and are negative.[facility] 10-19-2022 NoteUTP CARDIOLOGY PROGRESS NOTE HPI: Yoli [...] Last lab values have been reviewed CV Testin/4/22 Left Ventricle: The left ventricle is normal [...] on warfarin, and inabili (more content not included)...[facility]06-29-2023 NoteHNO ID: [id number] Author: Michaela Polo RN Service: ? Author [...] dizziness. IV removed. Pt discharged from treatment room.[facility]06-29-2023 History of Present illness Narrative* Michaela Polo [...] discharged from treatment room. documented in this encounterToledo Hospital06-26-2023 NotePROCEDURE DETAILS Preoperative Diagnosis: Sleep apnea, G47.30 Postoperative Diagnosis: Sleep Apnea Surgeon: Arabella Terry Resident/Fellow/Other Body Die Maker: None of these were associated with this [...] Completion Last Updated: 15-Oct-2022 11:11 by Arabella Terry)[facility]06-26-2023 Miscellaneous Notes* Op Note - Arabella Butt MD - 10/15/2022 11:02 AM EDT PROCEDURE DETAILS Preoperative Diagnosis: Sleep apnea, G47.30 Postoperative Diagnosis: Sleep Apnea Surgeon: Arabella Terry Resident/Fellow/Other Body Die Maker: None of these were associated with this [...] 11:11 by Arabella Terry) documented in this [facility] Work Phone: 1(956) 643-928906-26-2023 Note* Op Note - Arabella Butt MD - 10/15/2022 11:02 AM EDT PROCEDURE DETAILS Preoperative Diagnosis: Sleep apnea, G47.30 Postoperative Diagnosis: Sleep Apnea Surgeon: Arabella Terry Resident/Fellow/Other Body Die Maker: None of these were associated with this [...] Last Updated: 15-Oct-2022 11:11 by Arabella Terry) [facility] Work Phone: 1(164) 476-481206-06-2023 Chief complaint Narrative - Reported* An interactive audio and video telecommunication system which permits real time communications between the patient (at the originating site) and provider (at the distant site) was utilized to providethis telehealth service. * Verbal consent was requested and obtained from YOLIFRANKIE ANTUNEZ on this date, 09/25/2022 02:30 PM, for a telehealth visit. * Dysphagia follow-up [facility] Work Phone: 1(174) 870-136905-25-2023 History of Present illness Narrative* 67 year [...] more in his throat. Seeing neurology at [facility] for his intermittent aphasia. Still awaiting manometry results. * 09/04/22: * Here for follow-up. Esophagram completed 08/10/22 with moderate hiatal hernia, possible inflammatorynarrowing at GEJ, also area of mucosal irregularity for which endoscopy was recommended. He had manometry placed under endoscopy on 08/30/22, overall esophagus appeared normal on their exam with [id number] nodule at GEJ that was biopsied. Pathology [...] stasis and intraesophageal regurgitation. 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 * MBS September 2019 - reduced base of tongue retraction, poor pharyngeal wall squeeze, poor relaxation ofUES, no change with head turn or chin tuck * esophagram 2018 - slow clearing of the distal esophagus and pill sticking in the vallecula [facility] Work Phone: 1([phone]) 343-390805-25-2023 NoteHNO ID: [id number] Author: Sarbjit Richardson APRN.FILTER WASHER AND PRESSER Service: ? Author Type: Nurse Practitioner Type: Progress Notes Filed: 09/13/2022 11:43 AM Note Text: [facility] Virtual Visit Follow up During this COVID-19 pandemic, patient's headache clinic evaluation was scheduled as a virtual visit using the following platform This visit was conducted as a virtual visit, with patient's permission, via .telephone visit It required patient-provider interaction for the medical decision making as documented below. Patient stated name and Patient location [facility] [place] I have communicated my name and active licensure. The patient's identity and physical location were verified at the time of this visit. Either the patient or their legal construction representative has been informed of the risks [...] and sore throat after infusion. Jackie Banks LAST GREASER wrote 07/20/2022: [facility]. Yoli Antunez is a pelasant 67 year old male referred to Dr Shukri Vilchis and the Syncope and Autonomic Disorders Clinic in the Heart and Vascular Center at the [facility] for an evaluation of syncope. Hx paroxysmal atrial fibrillation. Undervent a watchman device implant at [facility] 03/06/2022. History of CAD. AAA not increased, [...] Last evaluated one month ago by neurology [facility]. Recent MRA MRV. Assessment/Plan The primary encounter [...] with treatment: Dura (more content not included)... [facility] [id number] NoteSubjective Yoli Antunez Jr. is a 67 y.o. male. I copied and pasted my initial consult note from [facility] date 07/20/2022 for continuity of care: Hx paroxysmal atrial fibrillation. Undervent a watchman device implant at [facility] 03/06/2022. History of CAD. AAA not increased, [...] Last evaluated one month ago by neurolog[facility] Hospital. Recent MRA MRV. HPI: Syncope began about [...] symptoms. Conservative therapy for now. RTC 3-6 months.[facility]05-16-[facility]23 History of Present illness Narrative* 67 year [...] esophagus appeared normal on their exam with mzfth4ik nodule at GEJ that was biopsied. Pathology [...] esophagus and pill sticking in the vallecula KZ-Cvhqbirhnbncwa-Qlpcuev Work Phone: 1(638) 581-160605-16-2023 Chief complaint Narrative - Reported* An interactive audio and video telecommunication system which permits real time communications between the patient (at the originating site) and provider (at the distant site) was utilized to providethis telehealth service. * Verbal consent was requested and obtained from YOLI ANTUNEZ on this date, 09/04/2022 11:30 AM, for a telehealth visit. * Dysphagia follow-up YA-Tirfrkrqrueqvw-Shemidi Work Phone: [phone]) 366-804405-11-2023 NotePatient Name: Yoli Antunez Procedure Date: 08/30/2022 7:32 AM Date of : 1955 Admit Type: Outpatient Site: [place] Procedure Room 5 Ethnicity: Not or Race: White Attending MD: ELISEO Williamson, [id number] Procedure: Upper GI endoscopy Indications: Dysphagia for 5 years to both liquids and solids Patient Profile: This is a 67 year old male. Refer to note in patient chart for documentation of history and physical. Providers: ELISEO Williamson (Doctor), Jaylen Lo, CARLOS (Nurse), Florentino De Dios, Inspector Subassemblies, Kristin Mcdaniels RN (Nurse) Referring: Radha Burris [...] specimen was done by the nurse and test lab technician using the patient's name and medical record number. Estimated blood loss was minimal. A single 3 mm nodule was found at the gastroesophageal junction, 39 cm from the incisors. Biopsies were taken with a cold forceps for histology. Verification of patient identification for the specimen was done by the nurse and test lab technician using the patient's name and [...] and technici (more content not included)...PROVATION - [id number] Reason for visit Narrative* An interactive audio and video telecommunication system which permits real time communications between the patient (at the originating site) and provider (at the distant site) was utilized to providethis telehealth service. * Verbal consent was requested and obtained from YOLI ANTUNEZ on this date, 08/13/2022 03:15 PM, for a telehealth visit. [facility] [address] [place] Work Phone: 1([phone]) 994-653104-11-2023 Chief complaint Narrative - Reported* An interactive audio and video telecommunication system which permits real time communications between the patient (at the originating site) and provider (at the distant site) was utilized to providethis telehealth service. * Verbal consent was requested and obtained from YOLI ANTUNEZ on this date, 07/31/2022 12:30 PM, for a telehealth visit. * Swallow [facility]-Vnpelxohsvwzjo-Ubzkhlu Work Phone: [phone]) [phone] History of Present illness Narrative* 67 year [...] stasis and intraesophageal regurgitation. 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 * MBS September 2019 - reduced base of tongue retraction, poor pharyngeal wall squeeze, poor relaxation ofUES, no change with head turn or chin tuck * esophagram 2018 - slow clearing of the distal esophagus and pill sticking in the vallecula XM-Kyjubxdzkckqqh-Xelffmj Work Phone: [phone]) 168-778004-10-2023 Miscellaneous Notes* Telephone Encounter - Jonathan Pascual - 07/30/2022 3:40 PM EDT Received call from patient regarding Message Per Patient Local ERs do not understand patients symptoms, would like to know if he can receive response from provider urgently * Telephone Encounter - Jessica Mccoy Pss - 07/30/2022 3:13 PM EDT Patient last seen 05/31/2022, but had infusions 07/26/2022. [facility]23 NoteHNO ID: [id number] Author: Eleonora Cabral RN Service: ? Author [...] with infusion , instructed on 45 day follow-up.[facility]04-06-2023 History of Present illness Narrative* Eleonora Cabral RN - 07/26/2022 1:52 PM EDT 13:35 Patient admitted to infusion unit and history reviewed, medications and allergies updated. Patient has 3/10 headache and no nausea, no dizziness at this time. Patient has first Vyepti infusion of 100 mg. 1424 Patinet discharged no problems with infusion , instructed on 45 day follow-up. documented in this encounterToledo Hospital04-03-2023 Miscellaneous Notes* Telephone Encounter - Fadumo Mckenzie - 07/23/2022 11:46 AM EDT Patient last seen on 05/31/22. Asked to follow up with Infusions. documented in this encounterToledo Hospital03-31-2023 Anibal Antunez is a pelasant 67 year old male referred to Dr Shukri Vilchis and the S[facility]ope [facility]onomic Disorders [facility] in the Heart and Vascular Center at the [facility] for an evaluation of syncope. Hx paroxysmal atrial fibrillation. Undervent a watchman device implant at [facility] 03/06/2022. History of CAD. AAA not increased, [...] Last evaluated one month ago [facility] neurology [facility]. Recent MRA MRV. HPI: Syncope began about [...] venlafaxine XR (Effexor-XR) 37.5 mg 24 hr capsule[facility]03-24-2023 Miscellaneous Notes* Telephone Encounter - Sarbjit Richardson APRN.CNP - 07/13/2022 4:04 PM EDT There are no results in Epic from [facility] in imaging. When did he have them done? Can they fax the results and send the disc. Sarbjit documented in this encounterToledo Hospital02-13-2023 Miscellaneous Notes* Telephone Encounter - Sarbjit Richardson APRN.CNP - 06/04/2022 12:48 PM EST Orders for MRA/MRV to be mailed to patient. Sarbjit Richardson APRN.CNP documented in this encounterToledo Hospital02-09-2023 Instructions* Patient Instructions* Sarbjit Richardson APRN.CNP - 05/31/2022 9:01 AM EST Greater Occipital Nerve Block Article in [employer] Journal By: Bhavesh Boyd MD Many patients with chronic headache report that their pain typically arises from the neck or, more specifically, the base of the skull. Often that pain arises on one side or the other and extends forward to involve the top of the head, the church, the forehead, the eye or some combination [...] give it at least one more try. https://americanheadachesociety.org/wp-content/uploads//Fkdxdaipb-Eberk-C locks_May-2010.pdf documented in this encounterToledo Hospital02-09-2023 History of Present illness Narrative* Sarbjit Richardson APRN.NEETU - 05/31/2022 8:00 AM EST Headache Section [facility] Follow up visit May 31, 2022 Chief [...] unrevealing and negative. I sent patient a Retention Education message with this information and we can try [facility] to see if this is migrainous as [...] other than aphasia. He was seen at [facility] for this previously (2020 note, migraine), and follows w/ Neurologist Dr. Wolff in [place]. 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 Billboard Mechanic (topogram) images: No additional findings. 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 Short and tar worker memory, cognition and general fund of knowledge [...] Care Visit completed when applicable. Sarbjit Richardson APRN.FILTER WASHER AND PRESSER The risks, benefits and anticipated outcomes of [...] which included preparing to see the patient, yiud-sh-alhq patient care, completing clinical documentation, obtaining and/or reviewing separately obtained history, performing a medically appropriate examination, counseling and educating the patient/family/caregiver, and ordering medications, tests, or procedures. Sarbjit Richardson APRN.NEETU Headache Section [facility] May 31, 2022 documented in this encounterToledo Hospital09-16-2022 History of Present illness Narrative* Paul Atkins [...] 168/97 (!) 143/80 Pulse: 86 63 Resp: 18 Temp: 97.9 F (36.6 C) TempSrc: [...] discharge. Tad Corea MD Internal medicine, PGY-2 [facility], [facility] @TODAY@ 10:53 AM Attending Physician [...] MD Nephrology Attending Physician [facility] 01/05/2022 * Dariela Walker MD - 01/05/2022 10:40 AM EDT Images from the original note were not included. [facility] Office: [phone] Mehdi Mcallister DO, Meliton Willard DO, Vicente Herrera DO, Johnson Roque, DO, Mickie Machado MD, Joie Carbajal MD, Nunu Klein MD, Kate Chester MD, Mariano Diego MD, Cal Sanchez MD, Darren Waldrop,DO, Erika Aldridge MD, Carlitos Abel, DO, Lorenzo Wagner MD, Brian Swenson MD, Osmel Mcallister DO, Darline Walden MD, John Saul MD, Zuleyka Negro MD, Keiry Jones MD, Shefali Mcdonnell MD, Dariela Walker MD, Abdirahman Kiser DO, Cornelia George MD, Octaviano Bolden MD, Julia Vasquez, FILTER WASHER AND PRESSER, Joanne Hameed, FILTER WASHER AND PRESSER, Jazmine Huitron, FILTER WASHER AND PRESSER, Tono Braun, FILTER WASHER AND PRESSER, Annie Quijano, DNP, Brunilda Fuller, FILTER WASHER AND PRESSER, Andria Rutherford, FILTER WASHER AND PRESSER, Akila Franks, FILTER WASHER AND PRESSER, Shivani Rascon, FILTER WASHER AND PRESSER, Mayte Martinez, FILTER WASHER AND PRESSER, Aliya Reyes, PA-C, Esha Kumari, PHOTOGRAPHIC EQUIPMENT TECHNICIAN, Monica Levy, DNP, Marifer Dunne, FILTER WASHER AND PRESSER, Rosie Longoria, FILTER WASHER AND PRESSER, Nohelia Morris, FILTER WASHER AND PRESSER [facility] IN-PATIENT SERVICE [facility] Progress Note Name: Yoli Antunez Acct: [id number] Room: 0318/0318-01 IP Day: 5 Admit Date: [...] improved to 2.5, bicarb 25 Brief History: 89-vuvd-bmp-year-old with prior history of CKD 3, hypertension, prior TIA, paroxysmal A. fib, aortic root aneurysm presented with right lower quadrant and flank pain, initially started on 12/28/2021 when he was evaluated at [facility]. Imaging suggested possible epiploic appendicitis versus [...] type 12/31/2021 Yes EMELIA (acute kidney injury) ([facility]) 01/01/2022 Yes CKD (chronic kidney disease) stage 3, GFR 30-59 ml/min ([facility]) 01/01/2022 Yes Non-intractable vomiting with nausea 01/01/2022 Yes Jaundice 01/01/2022 Yes Lactic acid acidosis 01/01/2022 Yes Hyperglycemia 01/01/2022 Yes Paroxysmal A-fib ([facility]) 01/01/2022 Yes History of TIA (transient ischemic attack) 01/01/2022 Yes Apnea 01/01/2022 Yes History of kidney stones 01/01/2022 Yes Metabolic acidosis 01/03/2022 Yes History of peptic ulcer 01/01/2022 Yes Overview Signed 01/01/2022 2:21 AM by Darline Walden MD S/p egd at [facility] 08/2020 Plan: S/p cholecystectomy day3 -Continue Percocet as needed for pain control. -Renal function continues to improve. Appreciate nephrology recommendations. Discussed with Dr. Grijalva. -Restarted on Eliquis. Was also started on empiric antibiotic therapy for infected cholecystitis per general surgery Joaquim Erickson for 5 days. - Diet mgmt postop [...] daily INVESTIGATIONS Last 3 CMP: Recent Labs 01/02/22 0522 01/02/22 1716 01/03/22 0547 01/04/22 0342 NA 141 [...] FACP 01/04/2022 1:31 PM [facility] * Dariela Walker MD - 01/04/2022 10:45 AM EDT Images from the original note were not included. [facility] Office: [phone] Mehdi Mcallister DO, Meliton Willard DO, Vicente [...] Vasquez, NEETU, Joanne Hameed CNP, Jazmine Huitron, NEETU, Tono Braun, FILTER WASHER AND PRESSER, Annie Quijano, KENYA, Brunilda Fuller, FILTER WASHER AND PRESSER, Andria Rutherford, FILTER WASHER AND PRESSER, Akila Franks, FILTER WASHER AND PRESSER, Shivani Rascon, FILTER WASHER AND PRESSER, aMyte Martinez, FILTER WASHER AND PRESSER, Aliya Reyes PA-C, Esha Kumari, YAMILET, Monica Levy, DNP, Marifer Dunne, FILTER WASHER AND PRESSER, Rosie Longorai, FILTER WASHER AND PRESSER, Nohelia Morris, FILTER WASHER AND PRESSER [facility] IN-PATIENT SERVICE [facility] Progress Note Name: Yoli Antunez Acct: [id number] Room: 0318/0318-01 Day: 4 Admit Date: 12/31/2021 11:15 PM PCP: Radha Price MD Code Status: Full Code Subjective: C/C: nausea,vomiting, fevers Interval History Status: improved. Patient indicates doing well no nausea vomiting. Continues to have left upper quadrant pain intermittently. No flatus or bowel movement yet . hemodynamically stable. Creatinine improved to 3.07 WBC 12.2 Brief History: 86-icon-tlq-year-old with prior history of CKD 3, hypertension, prior TIA, paroxysmal A. fib, aortic root aneurysm presented with right lower quadrant and flank pain, initially started on 12/28/2021 when he was evaluated at [facility]. Imaging suggested possible epiploic appendicitis versus [...] type 12/31/2021 Yes EMELIA (acute kidney injury) ([facility]) 01/01/2022 Yes CKD (chronic kidney disease) stage 3, GFR 30-59 ml/min ([facility]) 01/01/2022 Yes Non-intractable vomiting with nausea 01/01/2022 Yes Jaundice 01/01/2022 Yes Lactic acid acidosis 01/01/2022 Yes Hyperglycemia 01/01/2022 Yes Paroxysmal A-fib ([facility]) 01/01/2022 Yes History of TIA (transient ischemic attack) 01/01/2022 Yes Apnea 01/01/2022 Yes History of kidney stones 01/01/2022 Yes Metabolic acidosis 01/03/2022 Yes History of peptic ulcer 01/01/2022 Yes Overview Signed 01/01/2022 2:21 AM by Darline Walden MD S/p egd at [facility] 08/2020 Plan: S/p cholecystectomy day2 -Continue Percocet [...] function. Dariela Walker MD 01/04/2022 * Bhavesh Gunter, - 01/04/2022 8:05 AM EDT Images from [...] 3300 [Urine:3300] LAB: CBC: Recent Labs 01/02/22 0522 01/03/22 0547 WBC 12.2* 12.5* HGB 10.2* 10.3* HCT 30.4* 31.4* MCV 83.5 83.7 PLT 150 170 BMP: Recent Labs 01/02/22 0522 01/02/22 1716 01/03/22 0547 NA 141 142 138 K 4.6 5.0 4.8 CL 109* 108* 106 CO2 18* 20 16* BUN 63* 55* 53* CREATININE 4.02* 3.51* 3.44* GLUCOSE 106* 122* 138* COAGS: Recent Labs 01/02/22 0522 01/03/22 0547 PROT 6.1* 6.7 RADIOLOGY: CXR: No results found. Trauma Attending Attestation I have reviewed the above [facility]CS note(s) and confirmed the umaña elements of the medical history and physical exam. I have seen and examined the pt. I have discussed the findings, established the care plan and recommendations with Resident. Bhavesh Gunter DO 01/05/2022 7:56 AM * Dariela Walker MD - 01/03/2022 4:36 PM EDT Physician Progress Note PATIENT: YOLI ANTUNEZ CSN #: [id number] : 1955 ADMIT DATE: 12/31/2021 11:15 PM [...] labs. Thank you for your time, Jennie ROLBES, RN CDS. Please call/text/PS with any questions; [phone]. Options provided: -- Sepsis, present on admission [...] MD 01/03/2022 4:35 PM * Janet Ford, BRENNA - FILTER WASHER AND PRESSER - 01/03/2022 2:02 PM EDT [facility] Gastroenterology Progress Note Yoli Antunez is a [...] results for input(s): LABIRON, TIBC, IRON, FERRITIN, [id number], FOLATE, OCCULTBLD in the last 72 hours. [...] in the care of your patient. Janet Ford APRN - [place], [place] Please note that this note was generated using a voice recognition dictation software. Although every effort was made to ensure the accuracy of this automated engineering administrator, some errors in engineering administrator may have occurred. Associated attestation - Juan [...] and primary team. Juan David Marr MD [facility] Gastroenterology [place], [place] * Dariela Walker MD - 01/03/2022 9:30 AM EDT Images from the original note were not included. [facility] Office: [phone] Mehdi Mcallister DO, Meliton Willard DO, Vicente [...] Shefali Mcdonnell MD, Dariela Walker MD, Abdirahman iKser DO, Cornelia George MD, Octaviano Bolden MD, Jluia Vasquez CNP, Joanne Hameed CNP, Jazmine Huitron, FILTER WASHER AND PRESSER, Tono Braun, FILTER WASHER AND PRESSER, Annie Quijano, KENYA, Brunilda Fuller, FILTER WASHER AND PRESSER, Andria Rutherford, FILTER WASHER AND PRESSER, Akila Franks FILTER WASHER AND PRESSER, Shivani Rascon, FILTER WASHER AND PRESSER, Mayte Martinez FILTER WASHER AND PRESSER, Aliya Reyes PA-C, Esha Kumari, PHOTOGRAPHIC EQUIPMENT TECHNICIAN, Monica Levy, KENYA, Marifer Dunne, NEETU, Rosie Longoria, FILTER WASHER AND PRESSER, Nohelia Morris, FILTER WASHER AND PRESSER [facility] IN-PATIENT SERVICE [facility] Progress Note Name: Yoli Antunez Acct: [id number] Room: 0318/0318-01 Day: 3 Admit Date: 12/31/2021 [...] improved, lipase improved to 250 Brief History: 7-pfme-yvg-year-old with prior history of CKD 3, hypertension, prior TIA, paroxysmal A. fib, aortic root aneurysm presented with right lower quadrant and flank pain, initially started on 12/28/2021 when he was evaluated at [facility]. Imaging suggested possible epiploic appendicitis versus [...] -- -- -- Chemistry: Recent Labs 01/01/22 0326 01/01/22 0546 01/01/22 0727 01/01/22 1017 01/01/22 1207 01/02/22 0522 01/02/22 1716 [...] ANIONGAP 14 13 12 -- -- 14 16 LABGLOM 16* 16* 16* -- -- 15* 17* 18* GFRAA 20* 19* 20* -- -- 18* 21* 22* CALCIUM 6.4* 6.5* 6.5* -- -- 7.2* 7.2* 6.9* CAION 0.95* -- -- -- -- -- -- -- PHOS 3.0 -- -- -- -- -- -- -- TROPHS 18 18 18 17 19 -- -- -- Recent Labs 01/01/22 0326 01/01/22 0546 [...] results found for: POCPH, PHART, PH, POCPCO2, GCE7JAL, PCO2, POCPO2, PO2ART, PO2, POCHCO3, JTE3OKE, HCO3, NBEA, PBEA, BEART, BE, THGBART, THB, SKG6PCY, BUMI6TKL, X3ROWKXL, O2SAT, FIO2 Lab Results Component Value Date/Time [...] type 12/31/2021 Yes EMELIA (acute kidney injury) ([facility]) 01/01/2022 Yes CKD (chronic kidney disease) stage 3, GFR 30-59 ml/min ([facility]) 01/01/2022 Yes Non-intractable vomiting with nausea 01/01/2022 Yes Jaundice 01/01/2022 Yes Lactic acid acidosis 01/01/2022 Yes Hyperglycemia 01/01/2022 Yes Paroxysmal A-fib ([facility]) 01/01/2022 Yes History of TIA (transient ischemic attack) 01/01/2022 Yes Apnea 01/01/2022 Yes History of kidney stones 01/01/2022 Yes History of peptic ulcer 01/01/2022 Yes Overview Signed 01/01/2022 2:21 AM by Darline Walden MD S/p egd at [facility] 08/2020 Plan: S/p cholecystectomy day1 -Was started [...] PLT 157 150 170 BMP: Recent Labs 01/01/22 0701/02/2252101/02/22 1716 NA 138 141 142 K 4.4 4.6 5.0 CL 107 109* 108* CO2 19* 18* 20 BUN 59* 63* 55* CREATININE 3.74* 4.02* 3.51* GLUCOSE 109* 106* 122* COAGS: Recent Labs 01/01/22 0546 01/01/22 0701/02/2252101/03/22 0547 PROT 5.5* 5.8* 6.1* PENDING INR [...] from the original note were not included. [facility] Office: [phone] Mehdi Mcallister DO, Meliton Willard DO, Vicente [...] George MD, Octaviano Bolden MD, Julia Vasquez, FILTER WASHER AND PRESSER, Joanne Hameed, FILTER WASHER AND PRESSER, Jazmine Huitron, FILTER WASHER AND PRESSER, Tono Braun, FILTER WASHER AND PRESSER, Annie Quijano, KENYA, Brunilda Fuller, FILTER WASHER AND PRESSER, Andria Rutherford, FILTER WASHER AND PRESSER, Akila Franks, FILTER WASHER AND PRESSER, Shivani Rascon, FILTER WASHER AND PRESSER, Mayte Martinez, FILTER WASHER AND PRESSER, BALNCHE Nelson-C, Esha Kumari, PHOTOGRAPHIC EQUIPMENT TECHNICIAN, Monica Levy, KENYA, Marifer Dunne, FILTER WASHER AND PRESSER, Rosie Longoria, FILTER WASHER AND PRESSER, Nohelia Morris, FILTER WASHER AND PRESSER [facility] IN-PATIENT SERVICE [facility] Progress Note Name: Yoli Antunez Acct: [id number] Room: 80318- IP Day: 2 Admit Date: 12/31/2021 11:15 PM [...] showed no hydronephrosis. Hemodynamically stable Brief History: 89-hruj-qzs-year-old with prior history of CKD 3, hypertension, prior TIA, paroxysmal A. fib, aortic root aneurysm presented with right lower quadrant and flank pain, initially started on 12/28/2021 when he was evaluated at [facility]. Imaging suggested possible epiploic appendicitis versus [...] 5,000 Units SubCUTAneous 3 times per day [Jun] sodium chloride flush 5-40 mL IntraVENous 2 times per day Continuous Infusions: [JUN Hold] sodium chloride [JUN Hold] lactated ringers 150 mL/hr at 01/01/22 1232 PRN Meds: [JUN Hold] HYDROmorphone OR [JUN Hold] HYDROmorphone, [JUN Hold] ondansetron OR [JUN Hold] ondansetron, [JUN Hold] sodium chloride flush, [JUN Hold] sodium chloride Data: Past Medical History: [...] Labs: Hematology: Recent Labs 01/01/22 0546 01/01/22 0701/02/22521 WBC -- 16.8* 12.2* RBC -- 3.54* 3.64* HGB -- 10.0* 10.2* HCT -- 30.0* 30.4* MCV -- 84.7 83.5 MCH -- 28.2 28.0 MCHC -- 33.3 33.6 RDW -- 14.5* 14.4 PLT -- 157 150 MPV -- 11.0 10.3 INR 1.2 -- -- Chemistry: Recent Labs 01/01/22 0326 01/01/22 0546 01/01/22 0727 01/01/22 1017 01/01/22 1207 01/02/22 05 NA 139 140 138 -- -- 141 [...] 0326 01/01/22 0546 01/01/22 0727 01/02/22 0522 PROT 5.6* 5.5* 5.8* 6.1* LABALBU 3.2* [...] results found for: POCPH, PHART, PH, POCPCO2, OOR4QWG, PCO2, POCPO2, PO2ART, PO2, POCHCO3, BNG7AWY, HCO3, NBEA, PBEA, BEART, BE, THGBART, THB, JTY3OOH, KUBQ5UXK, B7GRDVFE, O2SAT, FIO2 Lab Results Component Value Date/Time [...] type 12/31/2021 Yes EMELIA (acute kidney injury) ([facility]) 01/01/2022 Yes CKD (chronic kidney disease) stage 3, GFR 30-59 ml/min ([facility]) 01/01/2022 Yes Non-intractable vomiting with nausea 01/01/2022 Yes Jaundice 01/01/2022 Yes Lactic acid acidosis 01/01/2022 Yes Hyperglycemia 01/01/2022 Yes Paroxysmal A-fib ([facility]) 01/01/2022 Yes History of TIA (transient ischemic attack) 01/01/2022 Yes Apnea 01/01/2022 Yes History of kidney stones 01/01/2022 Yes History of peptic ulcer 01/01/2022 Yes Overview Signed 01/01/2022 2:21 AM by Darline Walden MD S/p egd at [facility] 08/2020 Plan: S/p cholecystectomy day0 - Increase [...] Islas MD - 01/02/2022 9:29 AM EDT [facility] Gastroenterology Progress Note Yoli Antunez [...] Review: LABS and IMAGING: CBC Recent Labs 01/01/2272601/02/22521 WBC 16.8* 12.2* HGB 10.0* 10.2* HCT 30.0* 30.4* MCV 84.7 83.5 MCHC 33.3 33.6 RDW 14.5* 14.4 PLT 157 150 Immature PLTs No results found for: PLTFLUORE ANEMIA STUDIES No results for input(s): LABIRON, TIBC, IRON, FERRITIN, [id number], FOLATE, OCCULTBLD in the last 72 hours. BMP Recent Labs 01/01/22 0546 01/01/22 0701/02/22521 NA 140 138 141 K 4.5 4.4 4.6 CL 109* 107 109* CO2 18* 19* 18* BUN 59* 59* 63* CREATININE 3.86* 3.74* 4.02* GLUCOSE 106* 109* 106* CALCIUM 6.5* 6.5* 7.2* LFTS Recent Labs 01/01/22 0326 01/01/22 0546 01/01/22 0727 01/02/22 05 ALKPHOS 98 98 101 96 ALT 202* 191* 185* 123* AST 117* 112* 103* 50* BILITOT 4.4* 4.5* 4.3* 1.8* BILIDIR 4.1* -- -- 1.1* LABALBU 3.2* 3.0* 3.2* 2.9* AMYLASE/LIPASE/AMMONIA Recent Labs 01/01/22 0546 01/02/22521 LIPASE 1,918* 1,280* Acute Hepatitis Panel [...] Rachel Islas MD Internal medicine resident, PGY1 [place], [place] Please note that this note was generated using a voice recognition dictation software. Although every effort was made to ensure the accuracy of this automated engineering administrator, some errors in engineering administrator may have occurred. Associated attestation - Juan [...] 83.5 PLT 157 150 BMP: Recent Labs 01/01/2254501/01/2272601/02/22521 NA 140 138 141 K 4.5 4.4 4.6 CL 109* 107 109* CO2 18* 19* 18* BUN 59* 59* 63* CREATININE 3.86* 3.74* 4.02* GLUCOSE 106* 109* 106* COAGS: Recent Labs 01/01/2254501/01/2272601/02/22521 PROT 5.5* 5.8* 6.1* INR 1.2 -- [...] confirmed. Leonel Matos MD * Sara Villalobos RPH - 01/01/2022 10:23 AM EDT Pharmacy Note [...] original note were not included. Occupational Therapy [facility] Occup[facility] Therapy Not Seen Note DATE: 01/01/2022 NAME: Yoli Antunez : 1955 Patient not seen this date for Occupational Therapy due to: Patient independent with ADLs and functional tasks with no acute OT needs. Will defer OT evaluationat this time. Please reorder OT if future needs arise. Next Scheduled Treatment: N/A * Aydee Smart RN - 01/01/2022 8:52 AM EDT Talked to [facility] cardiac and they said his loop recorder was put in November 09 and it is a [employer] device model m301 LUX-DX. MRI notified. documented [facility] Work Phone: 1(903) 333-796909-16-2022 Hospital course Narrative* Dariela Walker MD - 01/05/2022 2:37 PM EDT Images from the original note were not included. [facility] Office: [phone] Mehdi Mcallister DO, Meliton Willard DO, Vicente [...] George MD, Octaviano Bolden MD, Julia Vasquez, FILTER WASHER AND PRESSER, Joanne Hameed, FILTER WASHER AND PRESSER, Jazmine Huitron, FILTER WASHER AND PRESSER, Tono Braun, FILTER WASHER AND PRESSER, Annie Quijano, DNP, Brunilda Fuller, FILTER WASHER AND PRESSER, Andria Rutherford, FILTER WASHER AND PRESSER, Akila Franks, FILTER WASHER AND PRESSER, Shivani Rascon, FILTER WASHER AND PRESSER, Mayte Martinez, FILTER WASHER AND PRESSER, Aliya Reyes PA-C, Esha Kumari, PHOTOGRAPHIC EQUIPMENT TECHNICIAN, Monica Levy, DNP, Marifer Dunne, FILTER WASHER AND PRESSER, Rosie Longoria, FILTER WASHER AND PRESSER, Nohelia Morris, FILTER WASHER AND PRESSER [facility] IN-PATIENT SERVICE [facility] Discharge Summary Patient ID: Yoli Antunez : 1955 ACCOUNT: [id number] Patient's PCP: Radha Price MD Admit Date: [...] Discharged Condition: good Hospital Stay: Hospital Course: 54-bkpv[age]jzr-year-old with prior history of CKD 3, hypertension, prior TIA, paroxysmal A. fib, aortic root aneurysm presented with right lower quadrant and flank pain, initially started on 12/28/2021 when he was evaluated at [facility]. Imaging suggested possible epiploic appendicitis versus [...] Discharge plan: Disposition: Home Physician Follow Up: [facility] [address] [facility] [phone] Schedule an appointment as soon as possible for a visit on 01/16/2022 For wound re-check post op from your Lap Ivy Campos MD [address] [facility] [address] Follow up in 1 month(s) Diet: regular [...] Your Medications These medications were sent to [facility] [address] - P [phone] - F [phone] [place] [address] ciprofloxacin 500 MG tablet dilTIAZem 120 MG [...] in this patient'scare. documented in this [facility] [employer] Phone: 1(746) 293-881909-14-2022 Hospital Discharge instructions* Discharge Instructions* Sudheer Foote [...] be called to the nurse line at [phone] and please leave a message. * Attachments The following attachments cannot be sent through Care Everywhere. * Pancreatitis: Acute: General Info (Jordanian) documented in this encounterB[facility] [employer] Work Phone: 1(467) 476-613107-28-2022 NotePROCEDURE: XR FOOT LT MIN 3 VIEWS [...] Electronically authenticated by: DONNELL DU Date: 2021-11-16 08:26[facility]06-13-2022 Evaluation note* Encounter Date Diagnosis Assessment Notes [...] to call the office if symptoms return [facility] Other 05-11-2022 Evaluation note* Encounter Date Diagnosis [...] - G89.29) Continue with current treatment plan [facility] Other 04-14-2022 Evaluation note* Encounter Date Diagnosis [...] - G89.29) Continue with current treatment plan [facility] Other 06-01-2020 History of Present illness Narrative* [...] for complaint except as noted in HPI. [facility] Work Phone: 1(340) 337-476106-01-2020 History of Present illness Narrative* Dysphagia with [...] for complaint except as noted in HPI. JL-Wdhxjbvmszwzwg-Wknmyto Voice Work Phone: 1(267) 943-321306-01-2020 History of Present illness Narrative* 67 year [...] for complaint except as noted in HPI. OI-Dekhejmjdnnmbf-Ckxkmaa Work Phone: 1(146) 946-156306-01-2020 History of Present illness Narrative* Dysphagia with [...] for complaint except as noted in HPI. -[facility] [address] Work Phone: 1(705) 769-874601-30-2019 History and physical note Author Charlene Soria [facility] April 16, 2023 10:45am Note Date/Time April 16, 2023 10:45am [facility] [address] [place] [address] Gastroenterology H&P Signed Patient: Yoli Antunez Jr MR#: [id number] : 1955 Acct:[id number] Age/Sex: 67 / M Adm Date: 3 Loc: Room: Type: [facility] Attending Dr: Charlene Soria MD Copies to: [...] M.D. Documented By: Charlene Soria MD 04/16/23 1044 Signed By: <Electronically signed by Charlene Soria MD> 04/16/23 1045 [facility] Work Phone: Evaluation noteNo [employer] Other Evaluation note* Diagnosis Gall stone pancreatitis- [...] Metabolic acidosis Acidosis documented in this encounter [facility] Work Phone: evaluation note* Diagnosis Chronic migraine without aura, intractable, without status migrainosus- Primary Aphasia Other specified transient cerebral ischemias documented in this encounter [facility]* Diagnosis Chronic migraine without aura, with intractable migraine, so stated, with status migrainosus- Primary [facility]* Diagnosis Chronic migraine without aura, with intractable migraine, so stated, with status migrainosus- Primary documented in this encounter [facility]* Diagnosis Autonomic dysfunction- Primary Unspecified disorder of autonomic nervous system Dizzy spells Dizziness and giddiness documented in this encounter [facility]* Diagnosis Diarrhea, unspecified type- Primary Left lower quadrant abdominal pain documented in this encounter [facility] Work Phone: Evaluation note* Diagnosis Disturbance of skin sensation- Primary documented in this encounter [facility]* Diagnosis Left lower quadrant abdominal pain documented in this encounter [facility] Work Phone: Evaluation note* Diagnosis Dysphagia, [...] Obstructive sleep apnea (adult) (pediatric) 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, unspecified USP (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 of antithrombotics/antiplatelets 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 Personal history of transient ischemic attack (TIA), and cerebral infarction without residual deficits Personal history of nicotine dependence Allergy status to penicillin documented in this encounter [facility] Work Phone: Evaluation note* Diagnosis Obstructive [...] joint, bilateral Personal history of nicotine dependence USP (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 of aspirin Allergy status to penicillin Allergy status to other antibiotic agents documented in this encounter [facility] Work Phone: Evaluation noteNo assessment information available [facility] Work Phone: Evaluation note* Diagnosis Orthostatic hypotension- Primary Neilton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) documented in this encounter [facility] general Narrative - Reported* Type Description Date [...] Hospitalization History see above Hospitalization History cardiac [facility] Other History of Present illness Narrative* Patient [...] and contact clinician with any concerns. [facility] [address] [place] Work Phone: History of Present illness Narrative* Mr. ANTUNEZ , 1955, referred for an initial consultation with me but established with this practice, with a long history of waking up feeling unrefreshed, excessive daytime fatigue. * Sinai Sleepiness Scale Score is 16 /24. Fatigue [...] / 20 * Nasal Obstruction VAS- 0/10 ET-Rhwommqeeydpto-Oqqhm MAC1 302 Work Phone: Hospital Discharge instructions [...] -Follow up pathology -Follow up [facility] the [facility] Work Phone: Summary Purpose Family History Unknown Family Member Name Dates Details Family [...] Malignant neoplasm of lung Unknown Advance Directives Documents on File Type Date Recorded Patient Support Services Coordinator Expl anation ACP-Advance Directive ACP-Power of Cigarette Package Examiner Latest Code Status on File Code Status [...] Advance Directives No April 29, 2018 9:44am Latest Code Status on File Code Status Date Activated Date Inactivated Comments Full Code 01/15/2020 1:13 AM 01/15/2020 5:04 PM Question Answer Comments Documentation of decision process for this code status: Discussed with patient or surrogate. This is the code status chosen by the patient/surrogate. History of Present Illness * Keyonna Freitas [...] IV contrast Yossi Chen MD [address] [facility] [address], [address] [place] [address] Referral ID Status Reason Start Date Expiration Date Visits Requested Visits Authorized [id number] Authorized Perform Procedure 3 07/30/2023 1 1 Specialty Diagnoses / Procedures Referred By Contac t Referred To Contact Neurology Diagnoses Autonomic dysfunction Dizzy spells Procedures CONSULT TO NEUROLOGY OFFICE/OUTPATIENT [facility] 60-74 MINUTES Sarbjit Richardson, MED AIDE.FILTER WASHER AND PRESSER [address] [place] [address] Referral ID Status Reason Start Date Expiration Date Visits Requested Visits Authorized [id number] Authorized PCP Requested Referral 12/31/2022 12/31/2023 1 1 Specialty Diagnoses / Procedures Referred By Contac t Referred To Contact MR IMAGING Diagnoses Chronic migraine without aura, intractable, without status migrainosus Aphasia Other specified transient cerebral ischemias Procedures MRV BRAIN WO IVCON MRA, HEAD W/O CONTRAST Sarbjit Richardson, MED AIDE.FILTER WASHER AND PRESSER [address] [place] [address] Mr Imaging Referral ID Status Reason Start Date Expiration Date Visits Requested Visits Authorized [id number] Pending Review Auto-Generat ed Referral 05/31/2022 06/30/2023 1 1 Specialty Diagnoses / Procedures Referred By Contac t Referred To Contact MR IMAGING Diagnoses Chronic migraine without aura, intractable, without status migrainosus Aphasia Other specified transient cerebral ischemias Procedures MRA BRAIN WO IVCON MRA, HEAD W/O CONTRAST Sarbjit Richardson, MED AIDE.FILTER WASHER AND PRESSER [address] [place] [address] Mr Imaging Referral ID Status Reason Start Date Expiration Date Visits Requested Visits Authorized [id number] Pending Review Auto-Generat ed Referral 05/31/2022 06/30/2023 [...] over 30 Minutes, ONCE, 1 dose, On [facility] 07/26/22 at 1330, EXP: Administer with 0.2 micron filter. New Bag/Syringe/Bottle 07/26/2022 1:37 PM EDT 100 mg 200 mL/hr Inactive Administered Medications - up to 3 most recent administrations Medication Order MAR Action Action Date Dose Rate Site eptinezumab-jjmr 100 mg in NaCl 0.9% 100 mL (VYEPTI) 100 mg, INTRAVENOUS, at 200 mL/hr, Administer over 30 Minutes, ONCE, 1 dose, On Sis 10/18/22 at 1400, EXP: Administer with 0.2 [...] section and content) DATE CREATED AUTHOR 05/02/2018 [facility] DATE CREATED AUTHOR AUTHOR'S ORGANIZ ATION 03/12/2020 [facility] DATE CREATED AUTHOR AUTHOR'S ORGANIZ ATION 10/28/2020 [facility] DATE CREATED AUTHOR AUTHOR'S ORGANIZ ATION 05/25/2021 [facility] DATE CREATED AUTHOR AUTHOR'S ORGANIZ ATION 12/23/2021 [facility] DATE CREATED AUTHOR AUTHOR'S ORGANIZ ATION 01/17/2022 [facility] DATE CREATED AUTHOR AUTHOR'S ORGANIZ ATION 04/18/2022 [facility] dical Specialist DATE CREATED AUTHOR AUTHOR'S ORGANIZ ATION 06/07/2022 [facility] DATE CREATED AUTHOR AUTHOR'S ORGANIZ ATION 08/28/2022 [facility] DATE CREATED AUTHOR AUTHOR'S ORGANIZ ATION 10/26/2022 [facility] DATE CREATED AUTHOR AUTHOR'S ORGANIZ ATION 12/14/2022 [facility] DATE CREATED AUTHOR AUTHOR'S ORGANIZ ATION 12/14/2022 [facility] DATE CREATED AUTHOR AUTHOR'S ORGANIZ ATION 12/18/2022 [facility] DATE CREATED AUTHOR AUTHOR'S ORGANIZ ATION 02/02/2023 [facility] DATE CREATED AUTHOR AUTHOR'S ORGANIZ ATION 02/06/2023 [facility] DATE CREATED AUTHOR AUTHOR'S ORGANIZ ATION 02/09/[address] [facility] DATE CREATED AUTHOR AUTHOR'S ORGANIZ ATION 05/04/2023 [facility] dical Specialists EPIC DATE CREATED AUTHOR AUTHOR'S ORGANIZ ATION 05/31/2023 [facility] DATE CREATED AUTHOR AUTHOR'S ORGANIZ ATION 06/02/2023 [facility] DATE CREATED AUTHOR AUTHOR'S ORGANIZ ATION 06/02/[address] [facility] Reason for Visit (unrecogniz ed section and content) Clinical Reason Comments Infusion Headache Specialty Diagnoses / Procedures Referred By Contac t Referred To Contact Diagnoses Chronic migraine without aura, with intractable migraine, so stated, with status migrainosus Sarbjit Richardson, MED AIDE.FILTER WASHER AND PRESSER [address] [place] [address] Neur Headache Main [address] [place] [address] Referral ID Status Reason Start Date Expiration Date V isits Requested Visits Authorized [id number] Authorized 05/31/2022 08/29/2022 99 99 Status Reason Specialty Diagnoses / Procedures Referred By Contact Referred To Contact Pending Review Infusion Therapy Diagnoses Migraine, unspecified, intractable, without status migrainosus Procedures ID INJ MAGNESIUM SULFATE ID LIDOCAINE INJECTION ID DEXAMETHASONE SODIUM PHOS ID DRUGS UNCLASSIFIED INJECTION Mayelni Wolff MD [address] [facility] [address] [place] [address] Mal Op Infusion [address] [place] [address] Reason Comments Headache Reason Comments Received Outside Medical Records Reason Comments Results [facility] Reason Comments Follow-up Diarrhea Since hiatal hernia surgery. Reason Comments Results [facility] Specialty Diagnoses / Procedures Referred By Contac t Referred To Contact Radiology Diagnoses Left lower quadrant abdominal pain Procedures CT abdomen pelvis w IV contrast Yossi Chen MD [address] [facility], [address] [address] Referral ID Status Reason Start Date Expiration Date Visits Requested Visits Authorized [id number] Authorized Perform Procedure 3 07/30/2023 1 1 Reason Comments Other EGDANS - Emailed pre p on 08-23-2022 Reason Comments Other DRUG INDUCED SLEEP E NDOSCOPY Reason Comments Follow Up Ordered Prescriptions (unrec ognized section and content) [...] Sosa RN)0855 (Given - Provider: Soco Hdez RN)2033 (Given - Provider: Agata Garcia RN) 0853 [...] Delong RN) 0855 (Given - Provider: Soco Hdez RN) 0853 (Given - Provider: Patty Evans) ciprofloxacin [...] Delong RN) 2033 (Given - Provider: Agata Garcia, CARLOS) 2099 (Due - Provider: Soco Hdez RN) labetalol (NORMODYNE;TRANDATE) injection 20 mg (COMPLETED) 20 [...] Garcia, CARLOS) 2099 (Due - Provider: Soco Hdez RN) metronidazole (FLAGYL) 500 mg in 0.9% NaCl [...] 2027 (Given - Provider: Ritu Sosa RN) 042 (Given - Provider: Ritu Sosa RN)144 (Given - Provider: Soco Hdez RN)2204 (Given - Provider: Agata Garcia RN) 0537 (Given - Provider: Agata Garcia RN)1355 (Given - Provider: Patty Evans)2199 (Due) pramipexole (MIRAPEX) tablet 2 mg 2 mg, Oral, NIGHTLY, First dose (after last modification) on Sis 01/04/22 at 2100, Until Discontinued, Give 2-3 hours before bedtime. 2099 (Given - Provider: iRtu Sosa RN) 2032 (Given - Provider: Agata [...] Garcia RN - Reason: IV Fluid Infusing) 09 (Not Given - Provider: Soco Hdez [...] frequent line interruptions/ long duration, Starting on 12/31/21 at 2333, For piggyback infusion, administer at [...] Soco Hdez RN)1456 (Given - Provider: Soco Hdez, CARLOS)2206 (Given - Provider: Agata Garcia RN) 0326 [...]
Care Teams (unrecognized sec tion and content) Football Scout Relationship Specialty Start Date End Date Radha Price MD [address] [place] [address] [id number] PCP - General Family Medicine 10/01/17 Football Scout Relationship Specialty Start Date End Date Radha Burris MD [address] [place] [id number] PCP - General Internal Medicine 01/14/20 Esther Grey, DO [address] [address] Physician Electrophysiology 01/26/20 Football Scout Relationship Specialty Start Date End Date Radha Burris [address] [place] [address] [phone] PCP - General Family Medicine 10/09/17 Elian Ceballos MD [address] [place] [address] Primary Staff Physician Cardiology 12/01/20 Herminia Roland MD [address] [place] [address] Primary Staff Physician Cardiology 02/01/21 Football Scout Relationship Specialty Start Date End Date Radha Burris [address] [place] [address] [phone] PCP - General Family Medicine 10/09/17 Elian Ceballos MD [address] [facility] [place] [address] Primary Staff Physician Cardiology 12/01/20 Herminia Roland MD [address] [facility] [place] [address] Primary Staff Physician Cardiology 02/01/21 Football Scout Relationship Specialty Start Date End Date FatumaRadha [address] [place] [address] PCP - General Family Medicine 10/09/17 Elian Ceballos MD [address] [facility] [place] [address] Primary Staff Physician Cardiology 12/01/20 Herminia Roland MD [address] [place] [place] [address] Primary Staff Physician Cardiology 02/01/21 Football Scout Relationship Specialty Start Date End Date FatumaRadha cantu [address] [place] [phone] PCP - General Family Medicine 10/09/17 Elian Ceballos MD [address] [place] [address] Primary Staff Physician Cardiology 12/01/20 Herminia Roland MD [address] [place] [address] Primary Staff Physician Cardiology 02/01/21 Football Scout Relationship Specialty Start Date End Date FatumaRadha cantu [address] [place] [address] PCP - General Family Medicine 10/09/17 Elian Ceballos MD [address] [place] [address] Primary Staff Physician Cardiology 12/01/20 Herminia Roland MD [address] [place] [address] Primary Staff Physician Cardiology 02/01/21 Football Scout Relationship Specialty Start Date End Date FatumaRadha Tono [address] [place] [phone] PCP - General Family Medicine 10/09/17 Elian Ceballos MD [address] [place] [address] Primary Staff Physician Cardiology 12/01/20 Herminia Roland MD [address] [place] [address] Primary Staff Physician Cardiology 02/01/21 Football Scout Relationship Specialty Start Date End Date FatumaRadha Tono [address] [place] [phone] PCP - General Family Medicine 10/09/17 Elian Ceballos MD [address] [place] [address] Primary Staff Physician Cardiology 12/01/20 Herminia Roland MD [address] [place] [address] Primary Staff Physician Cardiology 02/01/21 Football Scout Relationship Specialty Start Date End Date FatumaRadha cantu [address] [place] [phone] PCP - General Family Medicine 10/09/17 Elian Ceballos MD [address] [place] [address] Primary Staff Physician Cardiology 12/01/20 Herminia Roland MD [address] [place] [address] Primary Staff Physician Cardiology 02/01/21 Football Scout Relationship Specialty Start Date End Date FatumaRadha cantu [address] [place] [phone] PCP - General Family Medicine 10/09/17 Elian Ceballos MD [address] [place] [address] Primary Staff Physician Cardiology 12/01/20 Herminia Roland MD [address] [place], [place] [id number] Primary Staff Physician Cardiology 02/01/21 Football Scout Relationship Specialty Start Date End Date FatumaRadha cantu [address] [place] [address] PCP - General Family Medicine 10/09/17 Elian Ceballos MD [address] [place] [address] Primary Staff Physician Cardiology 12/01/20 Herminia Roland MD [address] [place] [address] Primary Staff Physician Cardiology 02/01/21 Football Scout Relationship Specialty Start Date End Date Radha Burris [address] [place] [address] PCP - General Family Medicine 10/09/17 Elian Ceballos MD [address] [place] [address] Primary Staff Physician Cardiology 12/01/20 Herminia Roland MD [address] [place] [address] Primary Staff Physician Cardiology 02/01/21 Football Scout Relationship Specialty Start Date End Date Radha Burris MD [address] [phone] PCP - General 03/22/20 Football Scout Relationship Specialty Start Date End Date Radha Burris [address] [place] [address] PCP - General Family Medicine 10/09/17 Elian Ceballos MD [address] [place], [place] [phone] Primary Staff Physician Cardiology 12/01/20 Herminia Roland MD [address] [place], [place] [phone] Primary Staff Physician Cardiology 02/01/21 Football Scout Relationship Specialty Start Date End Date Radha Burris [address] [place] [address] PCP - General Family Medicine 10/09/17 Elian Ceballos MD [address] [place], [place] [phone] Primary Staff Physician Cardiology 12/01/20 Herminia Roland MD [address] [place], [place] [phone] Primary Staff Physician Cardiology 02/01/21 Football Scout Relationship Specialty Start Date End Date Radha Burris MD [address] [place] [address] PCP - General 03/22/20 Football Scout Relationship Specialty Start Date End Date Radha Burris MD [address] [place] [address] PCP - General 03/22/20 Football Scout Relationship Specialty Start Date End Date Radha Burris MD [address] [place] [address] PCP - General 03/22/20 Team Status: Active Member Role Status Dates Radha Burris MD Primary Care Provide r Active Team Status: Inactive Member Role Status Dates Radha Burris MD Primary Care Provide r Active Charlene Soria MD Attending Provider Active 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 [address] PCP - General Internal Medicine 01/14/20 Esther Grey DO [address] [place] [address] [place] [address] Physician Electrophysiology 01/26/20 Football Scout Relationship Specialty Start Date End Date Radha Burris [address] [place] [phone] PCP - General Family Medicine 10/09/17 Elian Ceballos MD [address] [place] [address] Primary Staff Physician Cardiology 12/01/20 Herminia Roland MD [address] [place] [address] Primary Staff Physician Cardiology 02/01/21 Football Scout Relationship Specialty Start Date End Date Radha Burris MD [address] [place] [address] PCP - ACO Reach 09/13/22 Radha Burris MD [address] [place] [address] PCP - General Family Medicine 09/20/22 Source Comments (unrecognize d section and content) In the event this informatio n is protected by the Federal Confidentiality of Alcohol and Drug Abuse Patient Records regulations: The Federal rules restrict any use of the information to criminally investigate or prosecute any alcohol or drug abuse patient.[facility] the event this information is protected by the Federal Confidentiality of Alcohol and Drug Abuse Patient Records regulations: The Federal rules restrict any use of the information to criminally investigate or prosecute any alcohol or drug abuse patient.[facility] HospitalIn the event this information is protected by the Federal Confidentiality of Alcohol and Drug Abuse Patient Records regulations: The Federal rules restrict any use of the information to criminally investigate or prosecute any alcohol or drug abuse patient.[facility] HospitalIn the event this information is protected by the Federal Confidentiality of Alcohol and Drug Abuse Patient Records regulations: The Federal rules restrict any use of the information to criminally investigate or prosecute any alcohol or drug abuse patient.[facility] HospitalIn the event this information is protected by the Federal Confidentiality of Alcohol and Drug Abuse Patient Records regulations: The Federal rules restrict any use of the information to criminally investigate or prosecute any alcohol or drug abuse patient.[facility] HospitalIn the event this information is protected by the Federal Confidentiality of Alcohol and Drug Abuse Patient Records regulations: The Federal rules restrict any use of the information to criminally investigate or prosecute any alcohol or drug abuse patient.[facility] HospitalIn the event this information is protected by the Federal Confidentiality of Alcohol and Drug Abuse Patient Records regulations: The Federal rules restrict any use of the information to criminally investigate or prosecute any alcohol or drug abuse patient.[facility] HospitalIn the event this information is protected by the Federal Confidentiality of Alcohol and Drug Abuse Patient Records regulations: The Federal rules restrict any use of the information to criminally investigate or prosecute any alcohol or drug abuse patient.[facility] HospitalIn the event this information is protected by the Federal Confidentiality of Alcohol and Drug Abuse Patient Records regulations: The Federal rules restrict any use of the information to criminally investigate or prosecute any alcohol or drug abuse patient.[facility] HospitalIn the event this information is protected by the Federal Confidentiality of Alcohol and Drug Abuse Patient Records regulations: The Federal rules restrict any use of the information to criminally investigate or prosecute any alcohol or drug abuse patient.[facility] HospitalIn the event this information is protected by the Federal Confidentiality of Alcohol and Drug Abuse Patient Records regulations: The Federal rules restrict any use of the information to criminally investigate or prosecute any alcohol or drug abuse patient.[facility] HospitalIn the event this information is protected by the Federal Confidentiality of Alcohol and Drug Abuse Patient Records regulations: The Federal rules restrict any use of the information to criminally investigate or prosecute any alcohol or drug abuse patient.[facility] HospitalIn the event this information is protected by the Federal Confidentiality of Alcohol and Drug Abuse Patient Records regulations: The Federal rules restrict any use of the information to criminally investigate or prosecute any alcohol or drug abuse patient.[facility] HospitalIn the event this information is protected by the Federal Confidentiality of Alcohol and Drug Abuse Patient Records regulations: The Federal rules restrict any use of the information to criminally investigate or prosecute any alcohol or drug abuse patient.[facility] HospitalIn the event this information is protected by the Federal Confidentiality of Alcohol and Drug Abuse Patient Records regulations: The Federal rules restrict any use of the information to criminally investigate or prosecute any alcohol or drug abuse patient.[facility] HospitalIn the event this information is protected by the Federal Confidentiality of Alcohol and Drug Abuse Patient Records regulations: The Federal rules restrict any use of the information to criminally investigate or prosecute any alcohol or drug abuse patient.[facility] FOR RECORDS PERTAINING TO PATIENTS WHO ARE [...] BE BASED ON THE PRIMARY CLINICAL RECORDS. [facility]. provides no warranty or guarantee of the accuracy or completeness of information in this document.
--- NOTE | 2023-06-07 08:30 | CA_ITS ---
Patient Name: YOLI ANTUNEZ MR#: [id number] : 1955 Exam Date: 06/07/2023 Ordering Doctor: ELYSSA SOLANO ECHOCARDIOGRAM REPORT PROCEDURE: CA ECHO DOPPLER COMPLETE INDICATIONS: Aortic aneurysm, h/o atrial fibrillation COMPARISON: None. DESCRIPTION: COMPLETE ECHOCARDIOGRAM Real-time transthoracic echocardiography with 2D, M-mode, spectral and color flow Doppler performed. QUALITY: Technical quality was good. 78 , 245#, BSA 2.46 m2 LEFT VENTRICLE: Normal chamber size. Mild concentric left ventricular hypertrophy. Systolic function is at the lower limits of normal. LV EF: Low normal left ventricular ejection fraction, (50-55%). DIASTOLIC: Normal diastolic function. ATRIAL SEPTUM: Visually appears intact. LEFT ATRIUM: Moderate dilatation. RIGHT ATRIUM: Moderate dilatation. RIGHT VENTRICLE: Mild to moderate dilatation. Normal right ventricular systolic function. TRICUSPID VALVE: Normal mobility and thickness. No stenosis with mild regurgitation. No evidence of pulmonary hypertension. RVSP 31 mmHg MITRAL VALVE: Normal mobility and thickness. No evidence of mitral valve stenosis. There is no mitral annular calcification. Mild mitral regurgitation. AORTIC VALVE: Normal trileaflet appearance. No visible sclerosis. Normal leaflet mobility. No evidence of aortic valve stenosis. Mild aortic regurgitation. AORTIC ROOT: Aortic root is mildly to moderately dilated (4.4 cm), ascending aorta is mildly dilated (4.1 cm). PULMONIC VALVE: Normal thickness and mobility. No stenosis. Mild regurgitation. PERICARDIUM: No evidence of pericardial effusion. IVC: IVC is normal in size, does not fully collapse. PLEURA: CONCLUSION: 1. The left ventricle is normal in size and exhibits mild concentric hypertrophy with low normal systolic function. LVEF is 50 to 55%. 2. Mild to moderate right ventricular dilatation with normal systolic function. 3. Moderate biatrial dilatation. 4. Normal diastolic function. 5. Mild mitral, aortic, pulmonic and tricuspid regurgitation. 6. Normal right-sided pressures. 7. No pericardial effusion. Adult Echocardiography Procedure Report Left Ventricle LVEDD (3.7 - 5.6 cm): 5.20 cm LVESD (2.2 - 4.0 cm): 3.56 cm LVIVS thickness (0.6 - 1.2 cm): 1.14 cm LVPW thickness (0.5 - 1.0 cm): 1.15 cm e': 0.13 m/s E - e': 4.23 LVOT Max Gradient: 1.14 mm[Hg] LVOT Area (cm2): 0.53 m/s Peak Velocity (LVOT): 0.53 m/s Mean Velocity (LVOT): 0.42 m/s LVOT Diameter 2.55 cm Left Atrium LA Volume Index (2D A2C): 25.92 ml/m2 Left Atrium Systolic Dimension: 4.88 cm Mitral Valve MV E to A Ratio: 1.36 Mitral Valve A-Wave Peak Velocity: 0.40 m/s Mitral Valve E-Wave Peak Velocity: 0.55 m/s Right Ventricle Aorta AO Root Diam: 4.35 cm Ascending Ao Diam: 3.98 cm Aortic Valve AoV Area (Peak Andrey): 3.25 cm2, 3.25 cm2 AoV Area (VTI): 3.47 cm2, 3.47 cm2 Peak Velocity(Antegrade Flow): 0.84 m/s Peak Gradient(Antegrade Flow): 2.83 mm[Hg] Mean Velocity(Antegrade Flow): 0.56 m/s Mean Gradient(Antegrade Flow): 1.48 mm[Hg] Velocity Time Integral: 19.72 cm Tricuspid Valve Peak Velocity (Regurgitant Flow): 2.21 m/s, 4.11 m/s, 2.41 m/s Pulmonic Valve Peak Gradient: 2.27 mm[Hg], 3.17 mm[Hg] Right Atrium Right Atrium Systolic Pressure: 71.62 ml, 71.62 ml Dictated by: Mono Santana M.D. on 06/08/2023 at 10:13 Approved by: Mono Santana M.D. on 06/08/2023 at 10:26
[2023-06-07] MEDS: REGADENOSON 0.4 MG/5 ML SYRINGE IV (09:27)
[2023-06-07] MEDS: AMINOPHYLLINE 250 MG/10 ML VIAL 50 MG IVP (09:54)
== END 2023-06-07 07:36 | disposition home or self-care (01) ==
LOC: NM 07:36
PROVIDERS: PCP Family Medicine; Visit Provider Nurse Practitioner
DX: R07.89 Other chest pain (principal); R06.09 Other forms of dyspnea; I25.118 Atherosclerotic heart disease of native coronary artery with other forms of angina pectoris; I71.40 Abdominal aortic aneurysm, without rupture, unspecified; I71.21 Aneurysm of the ascending aorta, without rupture
CPT/HCPCS: 78452; 93017; 93306; 93356; A9500; J0280; J2785

== ENCOUNTER 2023-10-05 08:33 | Emergency (ER) | payer MEDICARE, OTHER, SELFPAY ==
[2023-10-05] VITALS (10 sets, daily range): BP systolic 115–150; BP diastolic 81–92; PULSE 74–93; TEMP 37; O2SAT 95–99; BMI 27.2
--- NOTE | 2023-10-05 08:51 | XR_ITS ---
The [address] [address] Patient Name: YOLI ANTUNEZ MRN: [id number] date: 1955 Sex: M Assigned Patient Location: ER Current Patient Location: ER Accession/Order Number: [id number] Exam Date: 10/05/2023 09:00 Report Date: 10/05/2023 09:36 At the request of: JANICE CATALAN Procedure: XR chest 2V EXAM: XR chest 2V REASON FOR EXAM: chest pain. TECHNIQUE: Single portable view the chest. COMPARISON: Priors, most recent 05/17/2023. FINDINGS: There is been interval placement of a left anterior chest wall pacemaker with leads overlying the right atrium and right ventricle. No pneumothorax. Heart size is stable. Lungs are grossly clear. No pleural effusion. No acute osseous abnormality. XR/XR chest 2V IMPRESSION: No active disease in the chest. Electronically authenticated by: MANE VEGA Date: 10/05/2023 09:36
--- NOTE | 2023-10-05 08:51 | XR_ITS ---
The [address] [address] Patient Name: YOLI ANTUNEZ MRN: [id number] date: 1955 Sex: M Assigned Patient Location: ER Current Patient Location: ER Accession/Order Number: [id number] Exam Date: 10/05/2023 09:00 Report Date: 10/05/2023 09:37 At the request of: JANICE CATALAN Procedure: XR hand LT min 3V EXAM: XR hand LT min 3V HISTORY: injury COMPARISON: None. TECHNIQUE: 3 views left hand FINDINGS: No acute displaced fracture or dislocation is evident. Mild degenerative changes are present. No radiopaque foreign body identified. XR/XR hand LT min 3V IMPRESSION: No acute osseous abnormality. Electronically authenticated by: MANE VEGA Date: 10/05/2023 09:37
--- NOTE | 2023-10-05 08:51 | ECG_ITS ---
The [facility] Test Date: 2023-10-05 Pat Name: YOLI ANTUNEZ Department: Room: - Gender: Male [employer]: : 1955 Requested By: [id number] Order Number: [id number] Reading MD: LARA OJEDA Measurements Intervals [place] Rate: 91 P: 90 HI: 202 QRS: 53 QRSD: 80 T: 101 QT: 358 QTc: 406 Interpretive Statements 1100 Sinus rhythm 4068 Nonspecific Twave abnormality 9130 borderline ECG Compared to ECG 05/17/2023 10:55:09 Sinus arrhythmia no longer present Electronically Signed On 10-06-2023 7:30:26 EDT by LARA OJEDA
--- NOTE | 2023-10-05 08:56 | ED.GENADUL1 ---
HPI HPI - General Adult General Chief complaint: Chest Pain Stated complaint: SWOLEN LT HAND AND CHEST PAIN Time Seen by Provider: 10/05/23 08:45 Source: patient Mode of arrival: walk-in Limitations: no limitations History of Present Illness HPI narrative: 68-year-old male to the emergency department with chief complaint of injury to his left index finger. Patient reports that several days ago he accidentally drilled a screw into his finger. He reports that he had some swelling and pain afterwards. It is not improved. He denies any redness or warmth. He denies any discharge. He has been applying liquid bandage to it. He decided this morning it was probably best to get this checked out so was driving himself to the emergency department when he had a episode of chest discomfort. Lasted only a few moments. It was pressure-like and substernal. No diaphoresis, radiation, shortness of breath associated. It has not recurred. Related Data Home Medications ?Medication ?Instructions ?Recorded ?Confirmed benazepril 10 mg tablet 10 mg PO DAILY 01/16/23 01/16/23 calcium carbonate 500 mg PO BID 01/16/23 05/17/23 diltiazem HCl 180 mg 360 mg PO QAM 01/16/23 05/17/23 capsule,extended release 24 hr levothyroxine 150 mcg tablet 150 mcg PO .COMPLEX 01/16/23 01/16/23 levothyroxine 175 mcg tablet 175 mcg PO DAILY 01/16/23 05/17/23 pramipexole 1 mg tablet 2 mg PO QAM 01/16/23 01/16/23 aspirin 81 mg tablet,delayed 81 mg PO DAILY 05/17/23 05/17/23 release (Adult Low Dose Aspirin) budesonide 3 mg 9 mg PO DAILY 05/17/23 05/17/23 capsule,delayed,extended release calcitriol 0.25 mcg capsule 0.25 mcg PO DAILY 05/17/23 05/17/23 ergocalciferol (vitamin D2) 1,250 50,000 unit PO QWEEK 05/17/23 05/17/23 mcg (50,000 unit) capsule topiramate 25 mg tablet 25 mg PO BID 05/17/23 05/17/23 Previous Rx's ?Medication ?Instructions ?Recorded doxycycline monohydrate 100 mg 100 mg PO BID 7 days #14 caps 10/05/23 capsule Allergies Allergy/AdvReac Type Severity Reaction Status Date / Time Penicillins Allergy Intermediate Verified 10/05/23 08:40 vancomycin Allergy Intermediate Verified 10/05/23 08:40 TYCOSYN Allergy Intermediate Uncoded 10/05/23 08:40 Opioid HPI Opioid Management Most Recent Opioid Data: Last Pain Scale 8 10/05/23 08:49 Last ED Pain Assessment 10/05/23 08:49 Review of Systems ROS Status of ROS 10 or more systems reviewed and unremarkable except as noted in history and below [facility] Medical History (Updated 10/05/23 @ 10:57 by Oscar Sandoval MD) Chronic kidney disease ?N18.9 - Chronic kidney disease, unspecified (ICD-10) Social History Smoking status: Former smoker Exam Narrative Exam Narrative: VITALS: I have reviewed the triage vital signs. GENERAL: Well developed, well appearing adult in no acute distress. NEURO: Alert and oriented. Moves all extremities. Face is symmetric and expressive. EYES: PERRL. No scleral icterus or conjunctival injection. No discharge. HENT: Normocephalic, atraumatic. Hearing is grossly intact. Nares grossly patent and without discharge. Mucous membranes moist. NECK: No JVD. Patient moves neck without restriction. CARDIO: Rhythm regular. Normal rate. No murmur, rub, or gallop. Pulses equal bilaterally in the upper and lower extremity. No lower extremity edema. PULM: Lungs clear to auscultation in all fernandez. No wheezes, rales, or rhonchi. No conversational dyspnea. No splinting, stridor, or accessory muscle use. GI/: Abdomen is soft and non-tender. Normoactive bowel sounds. EXTREMITIES: Symmetric muscle bulk. No joint swelling. No clubbing, cyanosis, or deformity. Left hand: Small puncture wound laterally along the radial aspect of the first digit at the mid proximal phalanx. There is some surrounding swelling without redness or warmth. No discharge from the wound. SKIN: Warm and dry. Normal turgor. No rash or lesions appreciated. PSYCH: Mood, affect, and interaction is appropriate to the setting. Constitutional Vital Signs, click to edit/add: Last Vital Signs Temp 98.6 F 10/05/23 08:37 Pulse 86 10/05/23 09:45 Resp 18 10/05/23 09:45 BP 121/81 10/05/23 09:45 Pulse Ox 98 10/05/23 09:45 O2 Del Method Room Air 10/05/23 08:37 Course Vital Signs Vital signs: Vital Signs Temperature 98.6 F 10/05/23 08:37 Pulse Rate 93 H 10/05/23 08:37 Respiratory Rate 18 10/05/23 08:37 Blood Pressure 150/92 H 10/05/23 08:37 Pulse Oximetry 99 10/05/23 08:37 Oxygen Delivery Method Room Air 10/05/23 08:37 Temperature 98.6 F 10/05/23 08:37 Pulse Rate 86 10/05/23 09:45 Respiratory Rate 18 10/05/23 09:45 Blood Pressure 121/81 10/05/23 09:45 Pulse Oximetry 98 10/05/23 09:45 Oxygen Delivery Method Room Air 10/05/23 08:37 Medical Decision Making MDM Narrative Medical decision making narrative: 68-year-old male to the emergency department with a chief complaint of left index finger injury as well as chest discomfort. Vital stable, the patient is afebrile. X-ray left hand will be ordered. Cardiac workup is initiated. CBC and chemistry without significant abnormality. Troponin negative x 2. EKG without evidence of ischemia. Chest x-ray without acute findings. X-ray of the hand without acute abnormality. From a cardiac perspective he is low risk by heart score, appropriate for outpatient follow-up with his coach builder Dr. Godwin. This was discussed with the patient. He agrees with this plan. For the hand we will start him on doxycycline for a mild cellulitis. Discussed rest, elevation of the hand. Return precautions for worsening symptoms. Will follow-up for a wound check with his PCP. Patient agrees with this plan. The patient was discharged home. Heart Score for Major Cardiac Event History: Example factors for history - pattern of chest pain, onset, duration, relation with exercise, stress or cold, localization, concomitant symptoms. reaction to sublingual nitrates, [] Highly suspicious +2 [] Moderately suspicious +1 [x] Slightly suspicious 0 EKG: [] Significant ST-Depression +2 [] Non specific repolarization disturbance +1 [x] Normal 0 Age: [x] >= 65 +2 [] 45-65 + 1 [] <45 0 Risk Factors: (HLD, HTN, DM, Cigarette Smoking, Pos Family Hx, Obesity) [] >3 risk factors or hx of atherosclerotic disease + 2 [x] 1-2 risk factors + 1 [] No risk factors known 0 Troponin: [] >= 3X normal + 2 [] 1-3X normal + 1 [x] <= Normal 0 [x] 0-3 Points 0.9 - 1.7% risk of major adverse cardiac event in 6 weeks [] 4-6 Points 12-16.6% risk of major adverse cardiac event in 6 weeks [] 7-10 Points 50-65% risk of major adverse cardiac event in 6 weeks [x] 0-3 Points with 2 sets of negative cardiac markers <1% risk of major adverse cardiac event in 30 days. Medical Records Medical records reviewed: Yes I reviewed the patient's medical records Lab Data Labs: Lab Results 10/05/23 10/05/23 Range/Units 08:45 10:22 WBC 9.9 (4.0-11.0) 10^3/uL RBC 4.98 (4.70-6.10) 10^6/uL Hgb 13.4 L (14.0-18.0) g/dL Hct 42.6 (42.0-54.0) % MCV 85.5 (80.0-94.0) fL MCH 26.9 (25.9-34.0) pg MCHC 31.5 (29.9-35.2) g/dL RDW 14.2 (11.0-15.0) % Plt Count 193 (150-450) 10^3/uL MPV 9.8 (9.5-13.5) fL Neut % (Auto) 69.6 (43.0-75.0) % Lymph % (Auto) 20.1 L (20.5-60.0) % [place] % (Auto) 8.1 (1.7-12.0) % Eos % (Auto) 1.5 (0.9-7.0) % Baso % (Auto) 0.5 (0.2-2.0) % Neut # (Auto) 6.9 H (1.4-6.5) 10^3/uL Lymph # (Auto) 2.0 (1.2-3.8) 10^3/uL [place] # (Auto) 0.8 (0.3-0.8) 10^3/uL Eos # (Auto) 0.2 (0.0-0.7) 10^3/uL Baso # (Auto) 0.1 (0.0-0.1) 10^3/uL Abs Immat Gran (auto) 0.02 (0.00-0.03) 10^3/uL Imm/Tot Granulo (auto) 0.2 (0.0-0.5) % PT 11.0 (9.0-11.6) sec INR 1.04 APTT 33.3 (22.3-36.2) sec Sodium 143 (136-145) mmol/L Potassium 3.7 (3.5-5.1) mmol/L Chloride 105 (98-107) mmol/L Carbon Dioxide 22.6 (21.0-32.0) mmol/L Anion Gap 19.1 BUN 24.0 H (7.0-18.0) mg/dL Creatinine 1.39 H (0.70-1.30) mg/dL Est GFR ( Amer) >60 (>=60) Est GFR (Non-Af Amer) 51 L (>=60) BUN/Creatinine Ratio 17.3 Glucose 151 H (74-106) mg/dL Calcium 7.6 L (8.5-10.1) mg/dL Total Bilirubin 0.9 (0.2-1.0) mg/dL AST 20 (15-37) U/L ALT 29 (16-63) U/L Alkaline Phosphatase 74 (46-116) U/L Troponin I High Sens 4.5 4.5 (4.0-76.1) pg/mL Total Protein 7.8 (6.4-8.2) g/dL Albumin 3.9 (3.4-5.0) g/dL Globulin 3.9 g/dL Albumin/Globulin Ratio 1.0 Discharge Plan Discharge Stand Alone Forms: Portal Instructions Chief Complaint: Chest Pain Clinical Impression: Chest pain, Cellulitis of finger of left hand Patient Disposition: Home, Self-Care Time of Disposition Decision: 10:56 Condition: Good Mode of Transportation: Private Vehicle Prescriptions / Home Meds: New doxycycline monohydrate 100 mg capsule 100 mg PO BID 7 Days Qty: 14 0RF No Action calcitriol 0.25 mcg capsule 0.25 mcg PO DAILY ergocalciferol (vitamin D2) 1,250 mcg (50,000 unit) capsule 50,000 unit PO QWEEK budesonide 3 mg capsule,delayed,extend.release 9 mg PO DAILY topiramate 25 mg tablet 25 mg PO BID aspirin [Adult Low Dose Aspirin] 81 mg tablet,delayed release (DR/EC) 81 mg PO DAILY benazepril 10 mg tablet 10 mg PO DAILY calcium carbonate 500 mg calcium (1,250 mg) tablet 500 mg PO BID diltiazem HCl 180 mg capsule,extended release 24hr 360 mg PO QAM levothyroxine 150 mcg tablet 150 mcg PO .COMPLEX Rx Instructions: 150 mcg orally 4 times a wk; Mon, Wed, Fri, Sun; levothyroxine 175 mcg tablet 175 mcg PO DAILY pramipexole 1 mg tablet 2 mg PO QAM Print Language: Greenlandic Instructions: Chest Pain (ED), Cellulitis (ED) Additional Instructions: Call the office of your primary care doctor to arrange for follow-up within the above-stated timeframe. Follow-up with your primary care doctor about this ED visit. You should review your labs, imaging, and diagnoses from this ED visit with your primary care physician. There may be non-emergent findings that need further evaluation. If you were prescribed medications you should discuss possible side-effects and drug interactions with your pharmacist. Call 911 or go to the nearest Emergency Department if you develop any new or worsening symptoms. Seek immediate medical attention if you develop: worsening chest pain, new chest pain, nausea, vomiting, weakness, numbness, tingling, excessive sweating, shortness of breath, difficulty breathing, loss of motion in your arms or legs, or any new or worsening symptoms. Call your coach builder to discuss your ED visit for chest pain. You should discuss need for further provocative testing such as a stress test. Wound reevaluation in 5 days. Return to the ED with worsening redness, warmth, swelling or discharge. Referrals: ANASTASIA BURRIS [Primary Care Provider] - 1 week
--- OUTSIDE RECORDS SUMMARY | 2023-10-05 08:57 | XMS_ITS ---
Patient Summarization (C-CDA 2.1 CCD) Created on: October 05, 2023 HARMONY ISIDRO YOLI Peoples : 1955 Sex: Male Author Organization Sample organization Care Team Providers Care Machine I Engraver Name Role Phone BRITTAUS CLAIR Unavailable Unavailable RADHA BURRIS Unavailable Unavailable Chris Luong Unavailable Unavailable Fatuma, Ritu Unavailable Unavailable Terrell Her Unavailable Unavailable Terrell Her Unavailable Unavailable Phillip Escobar Unavailable Unavailable Warren Burrisssica Unavailable Unavailable RADHA PRICE Primary Care Un available MAYELIN WOLFF Referring Unavailable Radha Price Primary Care [facility] PROVIDER, UNKNOWN Attending Unavailable PROVIDER, UNKNOWN [...] Primary Care Unavailable JANET FORD Consulting Unavailable KOMIRA, DARIELA Admitting Unavailable EVELIO DARIELA Attending Unavailable MINDY SEVERINO Referring Unavailable RADHA PRICE Primary Care Un available BHAVESH GUNTER Consulting Unavailable CANMARIO ARCE IV Consulting Unavaila DUSTY Casillas Consulting Unavailable Fide Price MDfer L Primary Care Pr ovider Radha Burris MD Primary Care Provider Esther Grey DO Unavailable Radha Burris Primary Care Provider Tucker VAZQUEZ, Elian Caballero Unavailable Herminia Roland MD Unavailable MARKER, DR MARTIN Consulting Unavailable MARKER, DR MARTIN Attending Unavailable FATUMA, DR OCONNOR Primary Care Unavailable MARKER, DR MARTIN Admitting Unavailable AMOS RAMIREZ Consulting Unavailable FATUMA, DR OCONNOR Primary Care Unavailable CONCHA PHILLIPS Attending Unavailable MICHAEL, DR MAYELIN Lovell Consulting Unavailable CONCHA PHILLIPS Admitting Unavailable BLANCHE SEVERINO Consulting Unavailable DAVIE NARANJO Consulting Unavailable SAMANTHA, DR LEXI Zhang Attending Unavailsadaf e FATUMA, DR OCONNOR Primary Care Unavailable BLANCHE SEVERINO Consulting Unavailable SAMANTHA, DR LEXI Zhang Admitting Unavailsadaf Du, DR Gutierrez Consulting [...] Primary Care Unavailable YANDEL SHEN Consulting Unavailable SHAHNAZ, DR VILLAREAL Consulting Unavailable MOUKARBEL, DR VILLAREAL [...] Primary Care Unavailable Fatuma, Radha R Unavailable Unavailable Unavailable Fatuma, Dr. Radha Mena Primary Care Unavail able Bhavesh Penn Admitting Unavailable Bhavesh Penn Attending Unavailable Killian, Dr. Ruby Maguire Attending Unavailab nikki Daily, Dr. Ruby Maguire Referring Unavailab le Fatuma, Dr. Radha Mena Primary Care Unavail able Rika Btut, Dr. Arabella Siddiqi Attending Unavailable Fatuma, Dr. [...] Unavailab nikki Diego, Dr. Beth Hedrick Attending Dayavai kishale Fatuma, Dr. Radha Mena Primary Care Unavail [...] Dr. Radha Mena Primary Care Unavail able Maramanda, Dr. Ranjana Joiner Attending U navailable Fatuma, Dr. Radha Mean Primary Care Unavail able Aydin, Dr. Ranjana Joiner Attending U navailable Aydin, Dr. Ranjana Joiner Referring U navailable Fatuma, Dr. Radha Mena Primary Care Unavail able Aydin, Dr. Ranjana Joiner Attending U navailable Daily, Dr. Ruby Maguire Referring Unavailab le Daily, Dr. Ruby Maguire Attending Unavailab le Fatuma, Dr. Radha Mena Primary Care Unavail able Aydin, Dr. Ranjana Joiner Attending U navailable Aydin, Dr. Ranjana Joiner Referring U navailable Fatuma, Dr. Radha Mena Primary Care Unavail able Daily, Dr. Ruby Maguire Referring Unavailab le Diego, Dr. Beth Hedrick Admitting Unavai lable Luis Angel, Dr. Beth Hedrick Attending Unavai lable Fatuma, Dr. Radha Mena Primary Care Unavail able Killian, Dr. Ruby Maguire Admitting Unavailab le Daily, Dr. Ruby Maguire Attending Unavailab le Daily, Dr. Ruby Maguire Referring Unavailab le Fatuma, Dr. Radha Mena Primary Care Unavail able Aydin, Dr. Ranjana Joiner Attending U navailable Fatuma, Dr. Radha Mena Primary Care Unavail able Sayon, Dr. Sy Admitting Unavailable Sayon, Dr. Sy Attending Unavailable Fatuma, Dr. Radha Mena Primary Care Unavail able Fatuma, Dr. Radha Mena Referring Unavail able Tucker VAZQUEZ, Elian Ada Unavailable Luan VAZQUEZ, Herminia H Unavailable [phone] Radha Burris MD Primary Care Provider YOSSI CHEN Attending Unavailable RADHA BURRIS Primary Care Unavailable RADHA BURRIS Primary Care Unavailable RADHA BURRIS Primary Care Unavailable YOSSI CHEN Referring Unavailable RADHA BURRIS Primary Care Unavailable Asaad, Imad Unavailable MD Radha Rapp Primary Care Pr ovider MD Charlene Soria Attending Provider [phone] Radha Burris MD Primary Care Provider Esther Grey DO Unavailable RADHA BURRIS Primary Care Unavailable SARBJIT [...] RICHARDSON Referring Unavailable MARÍA PEARL Attending Unavailable Radha Burris MD Unavailable Radha Burris MD Primary Care Provider aRdha Rapp Primary Care Un available Asaad, Imad Admitting Unavailable Asaad, Imad Attending Unavailable Radha Rapp Primary Care Un available Asaad, Imad Admitting Unavailable Asaad, Imad Attending Unavailable MATIAS JUAREZ Attending Unavailab MARTÍN Garcia Attending Unavailable ELEONORA LAUREANO Referring Unavailab MAYELIN Wiseman Attending Unavailable RADHA BURRIS Attending Unavailable Jairoim DO, Esther Unavailable YANDEL SHEN Attending Unavailable MAME, SHUKRI Referring Unavailable VITALIYYANDEL Attending Unavailable KARABIN, JACKIE Attending Unavailable MAME, SHUKRI Referring Unavailable MAME, SHUKRI Referring Unavailable MAME, SHUKRI Attending Unavailable MAME, SHUKRI Admitting Unavailable MAME, SHUKRI Attending Unavailable KARABIN, JACKIE Attending Unavailable MAME, SHUKRI Attending Unavailable MAME, SHUKRI Referring Unavailable TOFLINSKI, JAYLYN Referring Unavailable MAME, SHUKRI Referring Unavailable MAME, SHUKRI Referring Unavailable MAME, SHUKRI Referring Unavailable ALGHOTHANI, PHILLAMAD Attending Unavailable BARAZI, ELYSSA Attending Unavailable ALGHOTHANI, COLLIN Attending Unavailable MAME, SHUKRI Referring Unavailable RIKA, VERONICA Attending Unavailable MAME, SHUKRI Referring Unavailable TOFLINSKI, JAYLYN Attending Unavailable ELTAHAWY, EHAB Admitting Unavailable ELTAHAWY, EHAB Attending Unavailable BARAZI, ELYSSA Attending Unavailable TOFLINSKI, JAYLYN Referring Unavailable TOFLINSKI, JAYLYN Referring Unavailable ELTAHAWY, EHAB Referring Unavailable VITALIYYANDEL Attending Unavailable Allergies Allergy Classification Reported Allergen(s) Allergy Type Date of Onset Reaction(s) Facility (20 sources) Amoxicillin; Translations: [amoxicillin] Drug Allergy 3 Unknown [facility] (20 sources) Penicillins; Translations: [Penicillins] drug allergy 1 Rash [facility] Repository (13 sources) Penicillin Drug Allergy Unknown [employer] Other (1 source) Penicillin Drug Allergy 0 [facility] Repository (20 sources) dofetilide; Translations: [Tikosyn CAPS] Drug Allergy 2 Other: See Comments, Unknown [facility] (4 sources) Penicillins Propensity to adverse reactions to drug 1 Unknown, Other [facility] Work Phone: (20 sources) Penicillins Drug Allergy 1 Unknown [facility] Work Phone: (1 source) dofetilide Drug Allergy 3 [facility] Repository (1 source) Penicillins Drug allergy (disorder) 5 [facility] Repository (5 sources) Vancomycin; Translations: [VANCOMYCIN] Drug Allergy 2 Hives [facility] Repository (20 sources) Vancomycin; Translations: [Vancomycin HCl CAPS] Drug Allergy 2 Anaphylaxis, Itching, Rash [facility] (8 sources) Vancomycin HCl in Dextrose SOLN; Translations: [Vancomycin HCl in Dextrose SOLN] Allergy to drug (finding) [facility] Work Phone: (7 sources) Vancomycin; Translations: [VANCOMYCIN HCL] Drug Allergy 3 [facility] Work Phone: (7 sources) Vancomycin Hcl In Water; Translations: [VANCOMYCIN HCL IN WATER] Propensity to adverse reactions 3 Unknown [facility] Work Phone: (1 source) dofetilide Drug Allergy 2 Dizziness, Unknown [facility] (1 source) dofetilide Drug Allergy 3 [facility] Repository (1 source) Penicillins Drug allergy (disorder) 3 [facility] Repository (1 source) Vancomycin Drug Allergy 3 [facility] Repository Encounters Encounter Date Encounter Type Care Provider Facility Start: 09-27-2023 ambulatory [facility] Start: 09-01-2023 Letter encounter Radha cantu MD Work Phone: [facility] Start: 08-30-[address] [facility] Start: 08-30-2023 End: 08-30-2023 ambulatory [facility] Start: 08-22-2023 End: 08-22-2023 ambulatory [facility] Start: 08-14-2023 End: 08-14-2023 ambulatory MOHAMAD ALGHOTHANI [facility] Start: 08-07-2023 End: 08-07-2023 ambulatory SHUKRI [facility] Start: 07-18-2023 End: 07-18-2023 ambulatory [facility] Start: 07-11-2023 End: 07-11-2023 ambulatory RADHA BURRIS Not Available Start: 07-11-2023 End: 07-11-2023 ambulatory [facility] Start: 07-09-2023 ambulatory SHUKRI [facility] Start: 07-09-2023 End: 07-09-2023 ambulatory SHUKRI [facility] Start: 06-17-2023 ambulatory JACKIE Magana [facility] Start: 06-10-2023 End: 06-10-2023 ambulatory Radha Burris Facility:[facility] Start: 06-10-2023 End: 06-10-2023 ambulatory MD Radha Burris Work Phone: [facility] Work Phone: Start: 06-10-2023 End: 06-10-2023 Patient encounter procedure MD Radha Burris Work Phone: [facility] [place] Work Phone: Start: 05-31-2023 Clinisync Result Encounter Generic External Data Provider [facility] External Department Unsolicited Start: 05-31-2023 Clinisync Result Encounter Generic External Data Provider [facility] External Department Unsolicited Start: 05-31-2023 End: 05-31-2023 ambulatory María Pearl APRN.AIRFRAME AND POWERPLANT MECHANIC Work Phone: Neurology Comment on above: Orthostatic hypotens ion (Primary Dx); [place]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) Start: 05-31-2023 End: 05-31-2023 Telemedicine consultation with patient María Dae AGGARWAL Work Phone: [facility] Start: 05-30-2023 Telephone encounter Imad Asaad [facility] Start: 05-30-2023 End: 05-30-2023 ambulatory SHUKRI VILCHIS [employer] Other Start: 05-26-2023 Letter encounter [facility]u MD [facility] Start: 2023 End: 2023 ambulatory [facility] Start: 05-20-2023 End: 05-20-2023 ambulatory Imad Asaad Other [employer] Other Start: 05-20-2023 Telephone encounter Imad Asaad [facility] Start: 05-03-2023 End: 05-03-2023 ambulatory MAYELIN WOLFF Not Available Start: 05-02-2023 End: 05-02-2023 ambulatory MARTÍN POLLOCKRUMAI Not Available Start: 04-26-2023 End: 04-26-2023 ambulatory Imad Asaad Other [employer] Other Start: 04-26-2023 Telephone encounter Imad Asaad [facility] Start: 04-24-2023 End: 04-24-2023 ambulatory Imad Asaad Other [employer] Other Start: 04-24-2023 Telephone encounter Imad Asaad [facility] Start: 04-23-2023 End: 04-24-2023 ambulatory MATIAS JUAREZ Not Available Start: 04-16-2023 End: 04-16-2023 ambulatory Radha Burris Facility:[facility] Start: 04-16-2023 End: 04-16-2023 Admission to same day surgery center MD Radha Burris Work Phone: [facility] Work Phone: Start: 04-16-2023 End: 04-16-2023 ambulatory MD Radha Burris Work Phone: [facility] Work Phone: Start: 04-09-2023 End: 04-09-2023 ambulatory Imad Asaad Other [employer] Other Start: 04-09-2023 Telephone encounter Imad Asaad [facility] Start: 04-03-2023 End: 04-03-2023 ambulatory YANDEL [facility] Start: 04-01-2023 End: 04-01-2023 ambulatory Imad Asaad Other [employer] Other Start: 04-01-2023 Telephone encounter Imad Asaad [facility] Start: 03-20-2023 End: 03-20-2023 ambulatory Imad Asaad Other [place] [facility] Other Start: 03-20-2023 Office outpatient ne w 45 minutes Imad Asaad [facility] Start: 03-20-2023 End: 03-20-2023 Patient encounter procedure MD Radha Burris Work Phone: [facility] Work Phone: Start: 03-05-2023 End: 03-05-2023 Emergency department patient visit JAYLYN BENDER [facility] Start: 03-05-2023 ambulatory JACKIE Magana [facility] Start: 02-25-2023 End: 02-25-2023 ambulatory RADHA BURRIS Facility:[facility] Start: 02-25-2023 End: 02-25-2023 ambulatory Skin Biopsy Work Phone: Neurology Start: 02-25-2023 End: 02-25-2023 Patient encounter procedure Skin Biopsy Work Phone: [facility] Start: 02-05-2023 Telephone encounter María Zhao on HUMAN PROJECTILE.AIRFRAME AND POWERPLANT MECHANIC Work Phone: Neurology Comment on above: Results (Gerri teran ) Start: 02-01-2023 End: 02-02-2023 ambulatory RADHA BURRIS [facility] Start: 02-01-2023 End: 02-01-2023 Subsequent hospital visit by physician Winifred Baker [facility] Comment on above: Left lower quadrant abdominal pain Start: 01-31-2023 End: 02-01-2023 ambulatory [facility] Start: 01-31-2023 End: 01-31-2023 Office outpatient visit 25 minutes Yossi Chen MD Work Phone: [facility] Comment on above: Diarrhea, unspecifie d type (Primary Dx); Left lower quadrant abdominal pain Start: 01-28-2023 ambulatory María Pearl HUMAN PROJECTILE.AIRFRAME AND POWERPLANT MECHANIC Work Phone: Neurology Comment on above: Tilt Start: 01-28-2023 E-mail encounter fro m caregiver María Pearl HUMAN PROJECTILE.AIRFRAME AND POWERPLANT MECHANIC Work Phone: [facility] Start: 01-28-2023 Telephone encounter María Zaho on HUMAN PROJECTILE.AIRFRAME AND POWERPLANT MECHANIC Work Phone: Neurology Comment on above: Results ([facility] ) Start: 01-26-2023 ambulatory María Pearl HUMAN PROJECTILE.AIRFRAME AND POWERPLANT MECHANIC Work Phone: Neurology Comment on above: Test results Start: 01-24-2023 End: 01-24-2023 ambulatory RADHA BURRIS Facility:[facility] Start: 01-23-2023 End: 01-23-2023 ambulatory RADHA BURRIS Facility:[facility] Start: 01-21-2023 End: 01-21-2023 ambulatory [facility] Start: 12-31-2022 End: 12-31-2022 ambulatory RADHA BURRIS Facility:[facility] Start: 12-31-2022 End: 12-31-2022 Patient encounter procedure Sarbjit Richardson HUMAN PROJECTILE.AIRFRAME AND POWERPLANT MECHANIC Work Phone: Neurology Comment on above: Autonomic dysfunctio n (Primary Dx); Dizzy spells Start: 12-28-2022 End: 12-28-2022 ambulatory COLLIN [facility] Start: 12-13-2022 Postop follow up vis it related to original px Radha Andrew Burris Work Phone: [facility] Work Phone: Start: 12-13-[address] Yossi Chambers ity:[id number] Start: 12-10-2022 Chart Update Radha xavier Work Phone: [facility] DO Work Phone: Start: 11-29-2022 Postop follow up vis it related to original px Radha Andrew Burris Work Phone: [facility] DO Work Phone: Start: 11-29-[address] Yossi Chambers ity:[id number] Start: 11-22-2022 End: 11-22-2022 Evaluation and management of inpatient Dr. Yossi Chen Facility:[id number] Start: 11-16-2022 Telephone encounter Sarbjit Puentes APRN.AIRFRAME AND POWERPLANT MECHANIC Work Phone: Neurology Comment on above: Received Outside Med ical Records () Start: 11-12-[address] Yossi Chambers ity:[id number] Start: 10-29-2022 AUDIT Radha xavier Work Phone: RM-Uhynltnpyrkjjw-Ggnlvj n Work Phone: Start: 10-26-[address] Arabella Butt Facility:[id number] Start: 10-19-2022 End: 10-19-2022 ambulatory Sarbjit Richardson HUMAN PROJECTILE.AIRFRAME AND POWERPLANT MECHANIC Work Phone: Neurology Comment on above: Reaction Start: 10-18-2022 End: 10-18-2022 ambulatory Infusion Main Chair 3 Work Phone: Neurology Comment on above: Chronic migraine wit hout aura, with intractable migraine, so stated, with status migrainosus (Primary Dx) Start: 10-15-2022 End: 10-15-[address] Arabella Butt Facility:[id number] Start: 10-15-2022 End: 10-15-2022 Subsequent hospital visit by physician Arabella Butt MD Work Phone: [facility] Comment on above: Obstructive [...] joint, bilateral; Personal history of nicotine dependence; [facility] (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 of aspirin; Allergy status to penicillin; Allergy status to other antibiotic agents Start: 10-10-[address] Arabella Butt Facility:[id number] Start: 10-10-2022 Encounter for preprocedural cardiovascular examination Dr. Arabella Butt [facility] Start: 10-09-2022 AUDIT Radha xavier Work Phone: [facility] Work Phone: Start: 10-08-2022 Rx Renewal Radha xavier Work Phone: [facility] Work Phone: Start: 09-25-2022 Office outpatient vi sit 25 minutes Radha Burris Work Phone: ZN-Zvhxrgtqkbfkbj-Dxhthp n Work Phone: Start: [facility]-2022 [facility] : Ruby Daily, Status: Pen, Time: 2:30 PM Radha Burris Work Phone: [facility] 7313 Work Phone: Start: 09-25-[address] Ruby Daily Facility:[facility] Start: 09-24-2022 Office outpatient vi sit 10 minutes Radha Burris Work Phone: [facility] 6187 Work Phone: Start: 09-24-[address] Ranjana Perrin Facility:[id number] Start: 09-13-2022 End: 09-13-[address] Ruby Daily Facility:[facility] Start: 09-04-2022 Office outpatient vi sit 40 minutes Radha Burris Work Phone: DE-Hdpbvxvifndxbi-Hvthqf n Work Phone: Start: 09-04-[address] Ruby Daily Facility:[facility] Start: 08-30-2022 End: 08-30-[address] Ruby Daily Facility:[facility] Start: 08-30-2022 End: 08-30-2022 Subsequent hospital visit by physician Beth Diego MD Work Phone: 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 Radha Burris [facility] Start: 08-17-2022 Current tobacco non-user cad cap copd pv dm Radha Burris Work Phone: IV-Drmgyrxfypfzlz-Zamsr MAC1 302 Work Phone: Start: 08-17-[address] Arabella Butt Facility:[id number] Start: 08-13-[address] Radha Burris Facility:[id number] Start: 08-13-2022 Patient encounter procedure Radha Burris [facility]: [facility] [address] [place] Work Phone: Start: 08-10-[address] Ruby Daily Facility:[id number] Start: 07-31-2022 Office outpatient vi sit 40 minutes Radha Burris Work Phone: FC-Xazcggggzytzpt-Rpjlrb n Work Phone: Start: 07-31-2022 Patient encounter procedure Radha Burris Work Phone: UV-Glbwgzeogvches-Pylzgg n Work Phone: Start: 07-31-2022 VIRFUVJOSHUA, Provider : Ruby Daily, Status: Pen, Time: 12:30 PM Radha Burris Work Phone: [facility] [address] [place] Work Phone: Start: 07-31-[address] Ruby Daily Facility:[id number] Start: 07-30-[address] Radha Burris Facility:[id number] Start: 07-30-2022 Patient encounter procedure Radha Burris Work Phone: [facility] [address] [place] Work Phone: Start: 07-29-2022 ambulatory Sarbjit gregg HUMAN PROJECTILE.AIRFRAME AND POWERPLANT MECHANIC Work Phone: Neurology Comment on above: After effects Start: 07-26-2022 End: 07-26-2022 ambulatory Infusion Main Chair 3 Work Phone: Neurology Comment on above: Chronic migraine wit hout aura, with intractable migraine, so stated, with status migrainosus (Primary Dx) Start: 07-21-2022 ambulatory Sarbjit gregg HUMAN PROJECTILE.AIRFRAME AND POWERPLANT MECHANIC Work Phone: Neurology Comment on above: What's next? Start: 07-18-[address] Ranjana Perrin Facility:[id number] Start: 07-17-2022 Office outpatient vi sit 25 minutes Radha Burris Work Phone: CP-Vuoaauwwraknvp-Bsvpoc n Voice Work Phone: Start: 07-17-2022 Patient encounter procedure Radha Burris Work Phone: SB-Hjfgqodlastsuu-Jwclns 4100 Work Phone: Start: 07-17-[address] Ranjana Perrin Facility:[id number] Start: 07-11-2022 ambulatory Sarbjit gregg HUMAN PROJECTILE.AIRFRAME AND POWERPLANT MECHANIC Work Phone: Neurology Comment on above: Test results Start: 06-04-2022 End: 06-05-[address] AISHWARYA SWAIN Facility:H1 Start: 05-31-2022 ambulatory Sarbjit gregg HUMAN PROJECTILE.AIRFRAME AND POWERPLANT MECHANIC Work Phone: Neurology Comment on above: Today's visit Start: 05-31-2022 E-mail encounter fro m caregiver Sarbjit Richardson HUMAN PROJECTILE.AIRFRAME AND POWERPLANT MECHANIC Work Phone: [facility] Start: 05-31-2022 End: 05-31-2022 Patient encounter procedure Sarbjit Richardson APRN.CNP Work Phone: Neurology Comment on above: Chronic migraine wit hout aura, intractable, without status migrainosus (Primary Dx); Aphasia; Other specified transient cerebral ischemias Start: 05-29-2022 Letter encounter Radha cantu MD Work Phone: [facility] Start: 03-22-2022 End: 03-23-2022 ambulatory YANDEL SHEN Facility:H1 Start: 02-05-2022 End: 02-06-[address] MONO CHRISTIE Facility:H1 Start: 01-09-2022 End: 01-09-[address] LEXI SINGH Facility:H1 Start: 01-01-2022 End: 01-05-2022 Evaluation and management of inpatient [facility] Start: 12-31-2021 End: 01-05-2022 Evaluation and management of inpatient John Saul MD Work Phone: [facility] Renal//Med Surg Comment on above: Acute pancreatitis, unspecified complication status, unspecified pancreatitis type (Primary Dx); Gall stone pancreatitis; EMELIA (acute kidney injury) ([facility]) Start: 12-31-2021 End: 01-01-[address] RADHA BURRIS Facility:H1 Start: 12-30-2021 End: 12-31-[address] MAYELIN RODRIGUEZ Facility:H1 Start: 12-29-2021 End: 12-29-[address] VERONICA YOUNG Facility:H1 Start: 12-12-2021 End: 12-13-2021 Evaluation and management of inpatient RADHA BURRIS Facility:[facility] Start: 12-08-2021 End: 12-09-2021 ambulatory YANDEL SHEN Facility:H1 Start: 11-23-2021 Encounter for preprocedural laboratory examination DR MONO CHRISTIE [facility] Start: 11-21-2021 End: 11-22-2021 ambulatory RADHA BURRIS Facility:[facility] Start: 11-17-2021 End: 11-18-[address] MONO CHRISTIE Facility:H1 Start: 11-17-2021 End: 11-18-2021 Encounter for preprocedural laboratory examination DR MONO CHRISTIE Facility:H1 Start: 11-16-2021 End: 11-16-[address] RADHA BURRIS Facility:H1 Start: 11-09-2021 End: 11-10-2021 ambulatory RADHA BURRIS Facility:[facility] Start: 10-03-2021 End: 10-03-[address] Donnell Du Facility:H1 Start: 10-03-2021 End: 10-04-2021 ambulatory YANDEL SHEN Facility:H1 Start: 10-02-2021 End: 10-02-2021 ambulatory Thor Fox Other [employer] Other Start: 10-02-2021 Office outpatient vi sit 15 minutes Thor Ruddy [facility] Start: 09-27-2021 End: 09-28-2021 ambulatory YANDEL BAER Facility:H1 Start: 08-30-2021 End: 08-30-2021 ambulatory Lashawn Estrada Other [employer] Other Start: 08-30-2021 Office outpatient vi sit 15 minutes Lashawn Estrada [facility] Start: 08-15-2021 (Procedure) Short Thor Fox [facility] Start: 08-15-2021 End: 08-15-2021 ambulatory Thor Fox Other [employer] Other Start: 08-03-2021 End: 08-03-2021 ambulatory Thorshu Fox Other [employer] Other Start: 08-03-2021 Office outpatient vi sit 25 minutes Thor Ruddy [facility] Start: 07-27-2021 (Procedure) Short Thor Fox [facility] Start: 07-27-2021 End: 07-27-2021 ambulatory Thor Fox Other [employer] [facility] [employer] Other Start: 07-18-2021 (Procedure) Short Thor Fox [facility] Start: 07-18-2021 End: 07-18-2021 ambulatory Thor Fox Other [facility] [employer] Other Start: 03-11-2020 End: 03-12-2020 Patient encounter procedure RADHA Hinojosa [facility] Start: 03-11-2020 End: 03-11-2020 Subsequent hospital visit by physician Rupinder Infusion Bed 3 MALMargarita OP INFUSION Comment on above: Arrived Start: 02-10-2020 End: 02-10-2020 ambulatory UNKNOWN PROVIDER Facility:[facility] Start: 10-20-2019 Patient encounter procedure Terrell Her [facility] 4100 Work Phone: Start: 09-29-2019 Patient encounter procedure Terrell [facility] Work Phone: Start: 09-28-2019 Patient encounter procedure Terrell Arden [facility] 4100 Work Phone: Start: 09-21-2019 Patient encounter procedure Terrell Arden [facility] 4100 Work Phone: Start: 09-17-2019 Patient encounter procedure Terrell Her [facility] Work Phone: Start: 09-10-2019 Patient encounter procedure Terrell Her [facility] Work Phone: Start: 06-29-2019 Patient encounter procedure Terrell Her [facility] Work Phone: Start: 03-03-2019 Patient encounter procedure Terrell Her [facility] Work Phone: Start: 04-28-2018 Patient encounter procedure CLAIR MATT Facility:[id number] Medical Equipment Procedure Code Equipment Code Equipment Origin al Text Equipment Identifier Dates Gas Ispan Constellation Intraocular Vision System [id number] 125gm - [id number] Start: 10-15-2017 Lens Iol Ultrase rt 16 - [id number] Start: 10-15-2017 Sleeve 2.4mm 1.5 mm Silicone 30mm Scleral Round Sterile - [id number] Start: 10-15-2017 Strip Silicone [id number] Retinal 9229 Sterile - [id number] Start: 10-15-2017 Goals Date Patient Goal Desired Activity /State Immunizations Immunization Date Immunization Notes Care Provider [facility] 07-15-2020 Moderna (primary 12+ yrs) COVID-19 vaccine, mRNA, spike protein, LNP, PF, 100 mcg/0.5 mL (CST=212) Radha Burris MD Work Phone: [facility] 07-14-2020 Moderna SARS-CoV-2 Vaccination Generic Provider [facility] 06-17-2020 [facility] (primary 12+ yrs) COVID-19 vaccine, mRNA, spike protein, LNP, PF, 100 mcg/0.5 mL (BXJ=687) Radha Burris MD Work Phone: [facility] 06-16-2020 [facility] SARS-CoV-2 Vaccination Generic Provider [facility] 01-28-2016 influenza, injectable, quadrivalent, preservative free Radha Burris MD Work Phone: [facility] 01-28-2016 influenza virus vaccine, unspecified formulation Radha Burris MD Work Phone: [facility] 01-27-2013 tetanus toxoid, reduced diphtheria toxoid, and acellular pertussis vaccine, adsorbed Thor Fox Other [facility] NEGATED: Highlighted row has not occurred!04-28-2019 influenza, high dose seasonal, preservative-free Patient Objection Thor Fox Other [employer] Other NEGATED: Highlighted row has not occurred!06-14-2015 influenza, injectable,quadriva lent, preservative free, pediatric Patient Objection Thor Fox Other [employer] Other Medications Current Medications Medication Drug Class(es) Dates Sig (Normalized) Sig (Original) budesonide 3 mg delayed release oral capsule (4 sources) Corticosteroid Start: 04-24-2023 Budesonide 3 MG 3 tabs daily for 60 days, 2 tabs daily for 14 days, 1 tab daily for 14 days Orally Once a day for 90 days Apr, Active calcitriol 0.89851 mg oral capsule (20 sources) Vitamin D3 [...] Comment on above: [facility] cholestyramine resin 4000 mg powder for oral suspension (7 sources) Bile Acid Sequestrant Start: 03-20-2023 Cholestyramine 4 GM/DOSE 1 scoop Orally Once a day for 30 days Feb, Active Start: 03-20-2023 Cholestyramine 4 GM/DOSE 1 scoop Orally Once a day for 30 days Feb, Active clindamycin 300 mg oral capsule (3 sources) Lincosamide Antibacterial Start: 01-27-2020 take 2 [...] Comment on above: [facility]. dexamethasone (DECADRON) 40 mg in sodium chloride 0.9 % 100 mL IVPB (1 source) Start: 03-11-20 dexamethasone (DECADRON) 40 mg in sodium chloride 0.9 % 100 mL IVPB dicyclomine hydrochloride 10 mg oral capsule (9 sources) Anticholinergic Start: 04-02-20 take 10 mg by mouth twice daily Dicyclomine Active 10 MG PO Twice daily April 12, 2023 12:00am Start: 04-01-2023 take 1 capsule by mo [facility] twice daily Bentyl 10 MG 1 capsule [...] 1 tablet by ana th once daily. ERENUMAB-AOOE SUBQ (2 sources) ERENUMAB-AOOE SHULTZ BQ Inject under the skin. 0 Active ergocalciferol 1.25 mg oral capsule (20 sources) Provitamin D2 Compound Start: 10-09-19 23 take 1 capsule by mouth every week ergocalciferol (Vitamin D-2) 1.25 MG (41744 UT) capsule Take 1 capsule (1,250 mcg) by mouth 1 (one) time per week. 0 10/08/2022 Active Start: 01-10-2022 take 1 capsule by mo ut every week Vitamin D (Ergocalciferol) 1.25 MG (49826 UT) Oral Capsule TAKE 1 CAPSULE BY MOUTH ONCE A WEEK Quantity: 12 Refills: 0 Ordered: 17-Jul-2022 DO Start : 10-Jan-2022 Active Vitamin D2 Activ e Comment on above: Take 50,000 Units by mouth one time a week. fluconazole 100 mg oral tablet (3 sources) Azole Antifungal Start: 0 take 1 [...] before breakfast. lisinopril 5 mg oral tablet (3 sources) Angiotensin Converting Enzyme Inhibitor Start: 01-15-20 [...] / nitrofurantoin, monohydrate 75 mg oral capsule (3 sources) Nitrofuran Antibacterial Start: 01-22-20 nitrofurantoin monohydrate macrocrystal (MACROBID) 100 MG capsule nitroglycerin 0.4 mg sublingual tablet (17 sources) Nitrate Vasodilator nitroglyceri n (Nitrostat) 0.[address] 0.4 mg under the tongue. 0 Active Comment on above: Dissolve 0.4 mg unde r the tongue every 5 minutes as needed. nystatin 100 unt/mg topical powder (3 sources) Polyene Antifungal Start: 01-27-20 nystatin (MYCOSTATIN) 100,000 unit/g powder Apply topically 3 times daily. 45 g 1 01/27/2020 Active omeprazole 20 mg delayed release oral capsule (20 sources) Proton Pump Inhibitor Start: 07-18-19 End: 01-01-20 23 take 1 capsule by mouth once daily [...] disintegrating tablet 4 mg polyethylene glycol 3350 670225 mg / potassium chloride 2970 mg / sodium bicarbonate 6740 mg / sodium chloride 5860 mg / sodium sulfate 55957 mg powder for oral solution (7 sources) Osmotic Laxative Start: 03-20-20 23 take 4000 mL by mouth once Golytely 236 GM 4,000 ML Orally once for 1 Feb, Active pramipexole dihydrochloride 1 mg oral tablet (20 sources) Nonergot Dopamine Agonist Start: 01-15-20 20 take 2 tablets by mouth at bedtime pramipexole (MIRAPEX) 1 MG tablet TAKE 2 TABLETS BY MOUTH AT BEDTIME. 90 Tablet 3 01/15/2020 Active Start: 05-02-2018 End: 04-12-2023 take 2 mg by mouth at bedtime Pramipexole Discontinued 2 MG PO Bedtime May 02, 2018 12:00am April 12, 2023 12:19pm Mirapex 1 MG TAB S TAKE 1 TABLET TWICE DAILY. Quantity: 0 Refills: 0 Ordered: 03-Mar-2019 DO Active Comment on above: Take 2 mg by mouth d aily at bedtime. pyridostigmine bromide 60 mg oral tablet (19 sources) Start: End: take 1 tablet by mouth three times [...] 3 TIMES A DAY 0 08/08/2022 Active rifAXIMin 550 mg oral tablet (2 sources) Rifamycin Antibacterial Start: End: take 1 tablet by mouth three times daily Rifaximin (Xifaxan) 550 mg tablet Active 550 MG PO Three times daily 42 June 10, 2023 2:45pm sucralfate 1000 mg oral tablet (20 sources) Aluminum Complex Start: take 1 tablet by mouth four times daily at bedtime sucralfate (CARAFATE) 1 GM tablet TAKE 1 TABLET BY MOUTH 4 TIMES DAILY (BEFORE MEALS AND AT BEDTIME). 120 Tablet 3 01/15/2020 Active Start: 01-15-2020 Sucralfate 1 G M Oral Tablet Quantity: 120 Refills: 0 Ordered: 15-Jan-2020 DO Start : 15-Jan-2020 Active topiramate 25 mg oral tablet (5 sources) Start: 04-06-2023 take 25 mg by [...] / benazepril hydrochloride 10 mg oral capsule (13 sources) Dihydropyridine Calcium Channel González, Angiotensin Converting [...] Comment on above: Take [address] [facility] once daily. apixaban 5 mg oral tablet (13 sources) Factor Xa Inhibitor Start: 07-01-2020 End: 04-12-2023 take 1 tablet by mouth twice daily Apixaban (Eliquis) 5 mg Tablet Discontinued 5 MG PO Twice daily July 01, 2020 12:00am April 12, 2023 12:19pm Eliquis Active Comment on above: Take 5 [...] Start: 12-07-2019 End: 05-31-2023 benazepril (LOTENSIN) 5 MG t ablet Start: 11-06-2019 take 2 tablets by mo ndh once daily benazepril (Lotensin) 5 mg tablet Take 2 tablets (10 mg) by mouth once daily. Replacing amlodipine/benazepril 0 11/06/2019 Active Comment on above: Take 1 tablet by ana th once daily. betamethasone 3 mg/ml / betamethasone acetate 3 mg/ml injectable suspension (2 sources) Corticosteroid Start: 05-31-2022 End: 05-31-2022 betamethasone acetate-betamethasone sodium phosphate 6 mg injection (CELESTONE) Start: 05-31-2022 End: 05-31-2022 betamethasone acetate-betame thasone sodium phosphate 12 mg injection (CELESTONE) calcium carbonate 1250 mg / cholecalciferol 600 unt oral tablet (4 sources) Vitamin D Start: 10-13-2018 End: 12-19-2018 [...] Calcium-Vit D3) 500 mg(1,250mg) -200 unit tablet (2 sources) Start: 10-13-2018 End: 07-01-2020 take 4 tablets [...] Active 1 ml erenumab-aooe 140 mg/ml auto-injector (2 sources) Start: 07-01-2020 End: 04-12-2023 inject 140 mg by subcutaneous injection every month Erenumab-Aooe (Aimovig Autoinjector) 140 mg/mL Auto-Injector Discontinued 140 MG SUBCUT every month July 01, 2020 12:00am April 12, 2023 12:19pm esomeprazole 40 mg delayed release oral capsule (3 sources) Proton Pump Inhibitor Start: 01-15-2020 End: [...] once daily. gabapentin 300 mg oral capsule (20 sources) Anti-epileptic Agent Start: 11-29-2022 take 1 [...] 5 mg indomethacin 25 mg oral capsule (17 sources) Nonsteroidal Anti-inflammatory Drug Start: 07-01-2020 End: [...] mononitrate 60 mg extended release oral tablet (18 sources) Nitrate Vasodilator Start: 07-01-2020 End: 04-12-2023 take 60 mg by mouth once daily Isosorbide Mononitrate Discontinued 60 MG PO Daily July 01, 2020 12:00am April 12, 2023 12:19pm Start: 12-02-2019 isosorbide mon onitrate (IMDUR) 30 MG CR tablet Isosorbide Comer itrate Not-Taking/PRN Isosorbide Comer itrate Not-Taking ketorolac tromethamine 10 mg oral [...] or Vomiting 30 tablet 0 01/05/2022 Active pantoprazole 40 mg delayed release oral tablet (1 source) Proton Pump Inhibitor Start: 06-06-2023 End: 06-06-2023 take 1 tablet by mouth once daily Pantoprazole (Protonix) 40 mg tablet,delayed release (DR/EC) Discontinued 40 MG PO Daily June 06, 2023 12:00am June 06, 2023 2:03pm prednisoLONE acetate 10 mg/ml ophthalmic suspension (3 sources) Corticosteroid Start: 02-07-2022 prednisoLONE Acetate 1 % Ophthalmic Suspension Quantity: 5 Refills: [...] : 21-Mar-2022 Active take [address] [facility] every twenty-four hours tamsulosin (Flomax) 0.4 mg 24 hr capsule Take by mouth. 0 Active tiZANidine 4 mg oral tablet (12 sources) Central alpha-2 Adrenergic Agonist Start: 11-13-2012 [...] No more than 200 mg per day. Payers Date Payer Category Payer Self-pay [id number] 2019 Unknown [id number] 2018 Medicare [id number] 1959 Medicare [id number] 1959 Unknown [id number] 1953 Unknown [id number] 2.16.8 40.1.546150.3.579.2.355 1953 Unknown [id number] 2.16.84 0.1.268840.3.579.2.185 1953 Unknown [id number] 2.16. 840.1.355198.3.579.2.732 1953 Unknown [id number] 2.16.8 40.1.121502.3.579.2.647 1953 Unknown [id number] 2.16.8 40.1.207304.3.579.2.647 1953 Unknown [id number] 2.16.8 40.1.425117.3.579.2.647 1953 Unknown [id number] 2.16. 840.1.054625.3.579.2.175 1953 Unknown [id number] 2.16.84 0.1.338041.3.579.2.593 1953 Unknown [id number] 2.16.84 0.1.329100.3.579.2.593 1953 Unknown [id number] 2.16.84 0.1.978331.3.579.2.593 1953 Unknown [id number] 2.16.84 0.1.315734.3.579.2.593 1953 Unknown [id number] 2.16.84 0.1.411747.3.579.2.593 1953 Unknown [id number] 2.16.84 0.1.010166.3.579.2.593 1953 Unknown [id number] 2.16.84 0.1.137071.3.579.2.593 1953 Unknown [id number] 2.16.84 0.1.409414.3.579.2.593 1953 Unknown [id number] 2.16.84 0.1.879910.3.579.2.593 1953 Unknown [id number] 2.16.84 0.1.116521.3.579.2.593 1953 Unknown [id number] 2.16.84 0.1.991553.3.579.2.593 1953 Unknown [id number] 2.16.84 0.1.774088.3.579.2.593 1953 Unknown [id number] 2.16.84 0.1.098759.3.579.2.593 1953 Unknown [id number] 2.16. 840.1.787066.3.579.2.356 1953 Unknown [id number] 2.16.8 40.1.801876.3.579.2.1046 1953 Unknown [id number] 2.16.8 40.1.467588.3.579.2.6 1953 Unknown [id number] 2.16.8 40.1.648275.3.579.2.1046 1953 Unknown [id number] 2.16.8 40.1.539116.3.579.2.1046 1953 Unknown [id number] 2.16.8 40.1.963981.3.579.2.1046 1953 Unknown [id number] 2.16. 840.1.967103.3.579.2.356 1953 Unknown [id number] 2.16. 840.1.736916.3.579.2.356 1953 Unknown [id number] 2.16. 840.1.369022.3.579.2.356 1953 Unknown [id number] 2.16. 840.1.016455.3.579.2.356 1953 Unknown [id number] 2.16. 840.1.397383.3.579.2.356 1953 Unknown [id number] 2.16. 840.1.694882.3.579.2.356 1953 Unknown [id number] 2.16. 840.1.294162.3.579.2.356 1953 Unknown [id number] 2.16. 840.1.569619.3.579.2.356 1953 Unknown [id number] 2.16. 840.1.850405.3.579.2.356 1953 Unknown [id number] 2.16. 840.1.663411.3.579.2.356 1953 Unknown [id number] 2.16. 840.1.509438.3.579.2.356 1953 Unknown [id number] 2.16. 840.1.519891.3.579.2.356 1953 Unknown [id number] 2.16. 840.1.975683.3.579.2.356 1953 Unknown [id number] 2.16.8 40.1.091819.3.579.2.8 1953 Unknown [id number] 2.16.8 40.1.644623.3.579.2.1068 1953 Unknown [id number] 2.16.8 40.1.574375.3.579.2.1244 1953 Unknown [id number] 2.16.84 0.1.222930.3.579.2.1245 1953 Unknown [id number] 2.16.84 0.1.772268.3.579.2.1245 1953 Unknown [id number] 2.16.840 .1.968333.3.579.2.1246 1953 Unknown [id number] 2.16.84 0.1.507974.3.579.2.1259 1953 Unknown [id number] 2.16.84 0.1.090310.3.579.2.1259 1953 Unknown [id number] 2.16.84 0.1.355599.3.579.2.1259 1953 Unknown [id number] 2.16.840 .1.004641.3.579.2.1259 Private Health Insurance [id number] Unknown [id number] 2.16.8 40.1.289270.3.579.2.531 Unknown [id number] 2.16.8 40.1.505060.3.579.2.531 Plan of Treatment Date Care Activity Detail Author Start: 04-16-2033 Screening for malignant neoplasm of colon [facility] Start: 01-01-2027 Lipid panel [facility] Start: 03-05-2026 Diabetes Screening Diabetes Screenin [facility] Start: 01-31-2026 [facility] Start: 11-21-2025 DIABETES SCREEN DIABETES SCREEN [facility] Start: 11-21-2025 [facility] Start: 03-10-2024 DIABETES SCREEN DIABETES SCREEN [facility] Start: 03-05-2024 Complete blood count Hemoglobin/Constantino tocrit [facility] Start: 03-05-2024 Creatinine measurement Serum Creatin ine [facility] Start: 02-01-2024 Creatinine measurement Basic Metabol ic Panel [facility] Start: 02-01-2024 Pneumococcal Vaccine : 65+ Years (1 - PCV) Pneumococcal Vaccine: 65+ Years (1 - PCV) [facility] Comment on above: Postponed from 05/21 (Patient Refused) Start: 02-01-2024 Serum Creatinine Serum Creatinine Cl [facility] Start: 01-24-2024 BP Controlled (<130/80) BP Controlled (<130/80) [facility] Start: 01-01-2024 BP CONTROLLED (<130/80) BP CONTROLLED (<130/80) [facility] Start: 11-22-2023 SERUM CREATININE SERUM CREATININE Cl [facility] Start: 10-20-2023 Influenza vaccination Influenza Vacc ine (#1) [facility] Comment on above: Postponed from 12/21 (Patient Refused) Start: 05-31-2023 BP CONTROLLED (<130/80) BP CONTROLLED (<130/80) [facility] Start: 05-31-2023 End: 08-30-2023 [place]/MIGUEL BETHEA,JOSHUA [facility] Work Phone: Comment on above: Expected: 05/31/2023 , Expires: 08/30/2023 Start: 04-22-2023 Advance Directive Discussion Advance Directive Discussion [facility] Start: 04-22-2023 Depression Assessment Depression Ass essment [facility] Start: 04-16-2023 [facility] Start: 02-01-2023 End: 02-01-2023 Patient encounter procedure 02/01/2023 1:45 PM EDT Appointment [address] [id number] [facility] Start: 01-31-2023 End: 02-07-2023 Bacteria identified in Stool by Culture Stool Culture, Test of Cure Microbiology Routine Diarrhea, unspecified type Expected: 01/31/2023 (Approximate), Expires: 02/07/2023 [facility] Work Phone: Comment on above: Expected: 01/31/2023 (Approximate), Expires: 02/07/2023 Start: 01-31-2023 End: 02-01-2024 Basic metabolic 2000 panel - Serum or Plasma [facility] Work Phone: Comment on above: Expected: 01/31/2023 (Approximate), Expires: 02/01/2024 Start: 01-31-2023 End: 02-01-2024 CT Abdomen and Pelvis W contrast IV CT abdomen pelvis w IV contrast Imaging STAT Left lower quadrant abdominal pain Expected: 01/31/2023, Expires: 02/01/2024 [facility] Service Area Work Phone: Comment on above: Expected: 01/31/2023 , Expires: 02/01/2024 Start: 01-31-2023 End: 02-07-2023 Stool Pathogen Panel, PCR Stool Pathogen Panel, PCR Microbiology Routine Diarrhea, unspecified type Expected: 01/31/2023 (Approximate), Expires: 02/07/2023 [facility] Work Phone: Comment on above: Expected: 01/31/2023 (Approximate), Expires: 02/07/2023 Start: 01-27-2023 DTaP/Tdap/Td vaccine (2 - Td or Tdap) DTaP/Tdap/Td vaccine (2 - Td or Tdap) [facility] Start: 01-27-2023 DTaP/Tdap/Td Vaccine s (2 - Td or Tdap) DTaP/Tdap/Td Vaccines (2 - Td or Tdap) [facility] Start: 01-27-2023 Tetanus vaccination Tetanus (T d or Tdap) [facility] Start: 01-27-2023 Urine microalbumin profile [facility] Start: 01-01-2023 Diabetes mellitus screening Diabetes Screening [facility] Start: 01-01-2023 Hemoglobin A1c measurement A1C test (Diabetic or Prediabetic) [facility] Start: 01-01-2023 HEMOGLOBIN/HEMATOCRIT HEMOGLOBIN/HEM ATOCRIT [facility] Start: 01-01-2023 Hepatitis B surface antibody level LDL Cholesterol [facility] Start: 12-21-2022 Covid-19 Vaccine ( season) Covid-19 Vaccine ( season) [facility] Start: 12-21-2022 [facility] Start: 12-13-2022 FUV, Provider: Yossi Chen, Status: Pen, Time: 10:45 AM FUV, Provider: Yossi Chen, Status: Pen, Time: 10:45 AM [facility] DO Work Phone: Start: 11-12-2022 NPV, Provider: Yossi Chen, Status: Pen, Time: 2:45 PM NPV, Provider: Yossi Chen, Status: Pen, Time: 2:45 PM [facility] Work Phone: Start: 10-26-2022 VIRFUVHOME, Provider : Arabella Terry, Status: Pen, Time: 3:00 PM [facility]FUV[facility], Provider: Arabella Terry, Status: Pen, Time: 3:00 PM EV-Vveidoktjdzrfu-Bm rma MAC1 302 Work Phone: Start: 10-15-2022 [facility], Provider: Arabella Terry, Status: Pen, Time: 8:00 AM [facility], Provider: Arabella Terry, Status: Pen, Time: 8:00 AM NI-Holbgznojrfekm-Hr idman Work Phone: Start: 09-24-2022 VIRFUVHOME, Provider : Ranjana Perrin, Status: Pen, Time: 8:30 AM [facility], Provider: Ranjana Perrin, Status: Pen, Time: 8:30 AM [facility] Work Phone: Start: 09-04-2022 VIRFUVHOME, Provider : Ruby Daily, Status: Pen, Time: 11:30 AM VIRFUVHOME, Provider: Ruby Daily, Status: Pen, Time: 11:30 AM [facility] [place] Work Phone: Start: 08-30-2022 EMOT, Provider: EUGENIE OREILLY PROCEDURE ROOM 10,MG GASTRO, Status: Pen, Time: 8:00 AM EMOT, Provider: ELIAN PROCEDURE ROOM 10,MG GASTRO, Status: Pen, Time: 8:00 AM UW-Ngqqekqpikqspk-Ad idman Work Phone: Start: 08-30-2022 EGDANS, Provider: Beth Diego, Status: Pen, Time: 7:30 AM EGDANS, Provider: Beth Diego, Status: Pen, Time: 7:30 AM PK-Mhwtgrxeujvema-Gz idman Work Phone: Start: 08-17-2022 NPV, Provider: Arabella Alarcon, Status: Pen, Time: 10:40 AM NPV, Provider: Arabella Terry, Status: Pen, Time: 10:40 AM [facility] [address] [place] Work Phone: Start: 08-13-2022 VIRFUVHOME, Provider : Yoanna Quigley, Status: Pen, Time: 3:15 PM VIRFUVHOME, Provider: Yoanna Quigley, Status: Pen, Time: 3:15 PM [facility] [address] [place] Work Phone: Start: 07-31-2022 VIRFUVHOME, Provider : Ruby Daily, Status: Pen, Time: 12:30 PM VIRFUVHOME, Provider: Ruby Daily, Status: Pen, Time: 12:30 PM RF-Wppuvgqgdrjrob-Un ESTmob Work Phone: Start: 05-31-2022 End: 07-31-2022 Comprehensive metabolic 2000 panel - Serum or Plasma COMP METABOLIC PANEL Lab Routine Chronic migraine without aura, intractable, without status migrainosus Expected: 05/31/2022, Expires: 07/31/2022 [facility] Work Phone: Comment on above: Expected: 05/31/2022 , Expires: 07/31/2022 Start: 04-22-2022 ADVANCE DIRECTIVE DISCUSSION ADVANCE DIRECTIVE DISCUSSION [facility] Start: 04-22-2022 DEPRESSION ASSESSMENT DEPRESSION ASS ESSMENT [facility] Start: 03-10-2022 SERUM CREATININE SERUM CREATININE Cl [facility] Start: 01-20-2022 Influenza vaccination Influenza Vacc ine (#1) [facility] Start: 01-05-2022 End: 01-05-2023 Basic metabolic 2000 panel - Serum or Plasma Basic Metabolic Panel Lab Routine EMELIA (acute kidney injury) (HCC) Expected: 01/05/2022, Expires: 01/05/2023 [facility] Work Phone: Comment on above: Expected: 01/05/2022 , Expires: 01/05/2023 Start: 01-05-2022 End: 01-05-2023 CBC W Auto Differential panel - Blood CBC with Auto Differential Lab Routine Acute pancreatitis, unspecified complication status, unspecified pancreatitis type Expected: 01/05/2022, Expires: 01/05/2023 [facility] Work Phone: Comment on above: Expected: 01/05/2022 , Expires: 01/05/2023 Start: 12-21-2021 Influenza vaccination B ON [employer] Start: 06-05-2021 COVID-19 Vaccine (4 - Booster for Moderna series) COVID-19 Vaccine (4 - Booster for Moderna series) [facility] Start: 06-05-2021 COVID-19 VACCINE (4 - Moderna series) COVID-19 VACCINE (4 - Moderna series) [facility] Start: 01-14-2021 Basic metabolic 2000 panel - Serum or Plasma Basic Metabolic Panel [facility] Start: 01-14-2021 Creatinine measurement Basic Metabol ic Panel [facility] Start: 01-05-2021 Thyroid stimulating hormone measurement TSH [facility] Start: 12-15-2020 COVID-19 Vaccine (3 - Booster for Moderna series) COVID-19 Vaccine (3 - Booster for Moderna series) [facility] Start: 02-21-2020 Annual wellness visit Annual W ellness Visit ([id number]) [facility] Start: 12-22-2019 Influenza vaccination Flu vaccine (# 1) [place], [place] Start: 03-03-2019 MRI Brain with out Contrast JT-Nexfzuyby-Fusdcqm ld 201 Work Phone: Start: 2018 Abdominal aortic aneurysm screening Abdominal aortic aneurysm scan [facility] Start: 2018 Abdominal Aortic Aneurysm Screening (Age 65+) Abdominal Aortic Aneurysm Screening (Age 65+) [facility] Start: 2018 Pneumococcal 65+ yea rs Vaccine (1 - PCV) Pneumococcal 65+ years Vaccine (1 - PCV) [facility] Start: 2018 Pneumococcal 65+ yea rs Vaccine (1 of 1 - PPSV23) Pneumococcal 65+ years Vaccine (1 of 1 - PPSV23) [place] Start: 2018 Pneumococcal vaccination [facility] Start: 2018 Pneumococcal Vaccine : 65+ (1 - PCV) Pneumococcal Vaccine: 65+ (1 - PCV) [facility] Start: 2018 Pneumococcal Vaccine : 65+ (1 of 1 - PCV) Pneumococcal Vaccine: 65+ (1 of 1 - PCV) [facility] Start: 2018 Pneumococcal Vaccine : 65+ Years (1 - PCV) Pneumococcal Vaccine: 65+ Years (1 - PCV) [facility] Start: 2018 PNEUMOCOCCAL: 65+ (1 - PCV) PNEUMOCOCCAL: 65+ (1 - PCV) [facility] Start: 2013 Hepatitis B (HBV) Vaccine (optional start 60+ years) Hepatitis B (HBV) Vaccine (optional start 60+ years) [facility] Start: 2013 RSV Vaccine (1 - 1-dose 60+ series) RSV Vaccine (1 - 1-dose 60+ series) [facility] Start: 2013 RSV vaccine (optiona l 60+ years) RSV vaccine (optional 60+ years) [facility] Start: 2008 PROSTATE CANCER SCREENING DISCUSSION PROSTATE CANCER SCREENING DISCUSSION [facility] Start: 2003 Measurement of occul t blood in single stool specimen FIT [facility] Start: 2003 Screening for malignant neoplasm of colon [facility] Start: 2003 Shingles (RZV) Vacci ne (1 of 2) Shingles (RZV) Vaccine (1 of 2) [facility] Start: 2003 Shingles Vaccine (1 of 2) Shingles Vaccine (1 of 2) [facility] Start: 2003 SHINGRIX VACCINE (1 of 2) SHINGRIX VACCINE (1 of 2) [facility] Start: 2003 Zoster Vaccines (1 o f 2) Zoster Vaccines (1 of 2) [facility] Start: 1998 COLOGUARD (FIT-DNA) COLOGUARD (FIT-D NA) [facility] Start: 1998 Colonoscopy COLONOSCOPY [facility] Start: 1998 COLORECTAL CANCER SCREENING COLORECTAL CANCER SCREENING [facility] Start: [address] COLONOGRAPHY [facility] Start: 1998 FECAL OCCULT BLOOD FECAL OCCULT BLOO D [facility] Start: 1998 Screening for malignant neoplasm of colon [facility] Start: 1998 SIGMOIDOSCOPY SIGMOIDOSCOPY [facility] Start: 1993 Lipid panel Lipid screen [place], [place] Start: 1988 Lipid 1996 panel - Serum or Plasma Lipid Screening [facility] Start: 1988 Lipid panel Cholesterol [facility] Start: 1988 LIPID SCREEN LIPID SCREEN [facility] Start: 1972 DTaP/Tdap/Td vaccine (1 - Tdap) DTaP/Tdap/Td vaccine (1 - Tdap) [place], [place] Start: 1972 Hepatitis A (HAV) Vaccine (optional start 19+ years) Hepatitis A (HAV) Vaccine (optional start 19+ years) [facility] Start: 1971 ANNUAL PCP TEAM CHRONIC DISEASE VISIT ANNUAL PCP TEAM CHRONIC DISEASE VISIT [facility] Start: 1971 Hepatitis B surface antibody level LDL CHOLESTEROL [facility] Start: 1971 Hepatitis C screening [facility] Start: 1971 HEPATITIS C SCREENING HEPATITIS C [facility] Start: 1965 Depression Screen Depression Screen [facility] Start: 1953 ABDOMINAL AORTIC ANEURYSM SCREENING ABDOMINAL AORTIC ANEURYSM SCREENING [facility] Start: 1953 Abdominal aortic aneurysm screening Abdominal Aortic Aneurysm Screening [facility] Start: 1953 Hepatitis C screening Hepatitis C [place], [place] Start: 1953 Lipid panel Lipid Panel [facility] Start: 1953 Medicare Annual Wellness Visit Medicare Annual Wellness Visit (AWV) [facility] Start: 1953 Screening for malignant neoplasm of colon [facility] Start: 1953 Thyroid stimulating hormone measurement TSH Level [facility] End: 01-07-2022 Basic metabolic 2000 panel - Serum or Plasma Basic Metabolic Panel Lab Routine Daily for 3 Days starting 01/05/2022 until 01/07/2022, 1 completed [facility] Work Phone: Comment on above: Daily for 3 Days sta rting 01/05/2022 until 01/07/2022, 1 completed Continuous pulse oximetry Pulse oximetry, continuous Respiratory Care Routine Every 4hr until discontinued starting 01/01/2022 [facility] Work Phone: Comment on above: Every 4hr until disc ontinued starting 01/01/2022 Culture, Blood 1 Culture, Blood 1 Microbiology STAT 01/01/2022 12:00 AM EDT [facility] Work Phone: Culture, Blood 2 Culture, Blood 2 Microbiology STAT 01/01/2022 12:01 AM EDT [facility] Work Phone: End: 12-31-2021 Intermittent pulse oximetry Pulse Oximetry Spot Check Respiratory Care Routine One Time for 1 Occurrences starting 12/31/2021 until 12/31/2021 [facility] Work Phone: Comment on above: One Time for 1 Occur rences starting 12/31/2021 until 12/31/2021 End: 06-30-2023 Mra head w/o contrst material [facility] Work Phone: Comment on above: 1 Occurrences starti ng 05/31/2022 until 06/30/2023 Oxygen therapy [Minimum Data Set] Initiate Oxygen Therapy Protocol Respiratory Care Routine As Needed until discontinued starting 12/31/2021 [facility] Work Phone: Comment on above: As Needed until disc ontinued starting 12/31/2021 Patient Education Colon polyps Hemorrhoids (DC) [facility] Work Phone: Surgical Pathology Surgical Path ology Lab Routine Gall stone pancreatitis Release Upon Ordering for 1 Occurrences starting 01/02/2022 [facility] Work Phone: Comment on above: Release Upon Orderin g for 1 Occurrences starting 01/02/2022 TC-[id number]-Rm effie ld 201 Work Phone: [facility] NEGATED: Highlighted row has been ruled out! Planned Goals not documented GC-Efrpvzuuj-Nzxvubt ld 201 Work Phone: Problems Active Problems Problem Classification Problem Date Documented Date Episodic/Chronic Abdominal hernia (20 sources) Hiatal hernia; Translations: [Diaphragmatic hernia without mention of obstruction or gangrene] Onset: 3 Episodic Abdominal pain (16 sources) Unspecified abdominal pain; Translations: [Left lower quadrant pain] Onset: 2 Episodic Acute and unspecified renal failure (20 sources) Injury of kidney; Translations: [Acute kidney failure, unspecified] Onset: 6 Episodic Acute posthemorrhagic anemia (2 sources) Acute posthemorrhagic anemia; Translations: [Acute posthemorrhagic anemia] 07-01-2020 Episodic Allergic reactions (6 sources) Allergy status to penicillin; Translations: [Allergy status to other antibiotic agents status] Onset: 3 09-07-2022 Episodic Anxiety disorders (1 source) Anxiety; Translations: [Anxiety disorder, unspecified] Onset: 3 10-01-2022 Chronic Cardiac dysrhythmias (20 sources) Paroxysmal atrial fibrillation; Translations: [Paroxysmal atrial fibrillation] Onset: 0 Chronic Cardiac dysrhythmias (2 sources) Palpitations; Translations: [Palpitations] Onset: 4 Episodic Cataract (20 sources) Nuclear sclerotic cataract; Translations: [Age-related nuclear cataract, left eye] Onset: 8 01-06-2020 Chronic Chronic kidney disease (20 sources) Chronic kidney disease stage 3; Translations: [Chronic kidney disease, stage 3 (moderate)] Onset: 0 Chronic Chronic kidney disease (3 sources) Chronic kidney disease; Translations: [Chronic kidney disease, stage 3 unspecified] Onset: 3 Complications of surgical procedures or medical care (17 sources) Hypoparathyroidism following procedure; 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] Onset: 3 10-13-2018 Chronic Complications of surgical procedures or medical care (14 sources) Postoperative seroma; Translations: [Postprocedural seroma of a circulatory system organ or structure following other procedure] Onset: 3 10-01-2022 Episodic Conditions associated with dizziness or vertigo (1 source) Meniere's disease; Translations: [Meniere's disease, unspecified ear] Onset: 1 10-01-2022 Chronic Conduction disorders (2 sources) Presence of cardiac pacemaker; Translations: [Presence of cardiac pacemaker] Onset: 4 Chronic Coronary atherosclerosis and other heart disease [...] or perforation] Chronic Gastroduodenal ulcer (except hemorrhage) (19 sources) Acute gastric ulcer; Translations: [Acute gastric ulcer without hemorrhage or perforation] Onset: 6 Episodic Gastrointestinal hemorrhage (4 sources) Upper gastrointestinal bleeding; Translations: [Gastrointestinal hemorrhage, [...] with lower urinary tract symptoms] Onset: 3 10-01-2022 Chronic Hypertension with complications and secondary hypertension (19 sources) Hypertensive renal disease; Translations: [Hypertensive chronic kidney disease with stage 1 through stage 4 chronic kidney disease, or unspecified chronic kidney disease] Onset: 3 09-07-2022 Chronic Immunity disorders (1 source) [place] light chain disease; 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, not elsewhere classified] 05-31-2023 Chronic Menopausal disorders (1 source) Hormone replacement therapy; Translations: [HORMONE REPLACEMENT THERAPY] Onset: 3 Episodic Miscellaneous mental health disorders (1 source) Other somatoform disorders; Translations: [OTHER SOMATOFORM DISORDERS] Onset: 3 Chronic Nutritional deficiencies (14 sources) Vitamin D deficiency; Translations: [Vitamin D deficiency, unspecified] Onset: 7 10-01-2022 Chronic Osteoarthritis (16 sources) Osteoarthritis of elbow; Translations: [Primary osteoarthritis, right elbow] Onset: 6 10-01-2022 Chronic Other aftercare (1 source) Other snf (current) drug therapy; Translations: [OTH [facility]CI CURRENT DRUG THERAPY] Onset: 3 Episodic Other aftercare (1 source) [facility] (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 of anticoagulants; Translations: [[facility] CURRNT USE ANTICOAGULANTS] Onset: 3 Episodic Other aftercare (4 sources) 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; Translations: [[facility]I CURRENT USE OF ASPIRIN] Onset: 3 Episodic Other aftercare (1 source) Patient encounter status; Translations: [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 of antithrombotics/antiplat elets] 09-07-2022 Episodic Other aftercare (2 sources) Long-term current use of aspirin; Translations: [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] 09-07-2022 Episodic Other [...] specified cardiac device in situ] Onset: 2 10-01-2022 Chronic Other circulatory disease (20 sources) H/O: hypertension; Translations: [Personal history of other diseases of circulatory system] Episodic Other circulatory disease (3 sources) Personal history of transient ischemic attack (TIA), and cerebral infarction without residual deficits; Translations: [Prsnl hx of TIA (TIA), and cereb infrc w/o resid deficits] Onset: 3 Episodic Other circulatory disease (2 sources) History of cerebrovascular disease; Translations: [Personal history of transient ischemic attack (TIA), and cerebral infarction without residual deficits] 09-07-2022 Episodic Other circulatory disease (2 sources) Low blood pressure; Translations: [Hypotension, unspecified] 07-01-2020 [...] [Diarrhea, unspecified] 01-31-2023 Episodic Other gastrointestinal disorders (9 sources) Diarrhea, unspecified; Translations: [Diarrhea, unspecified] Onset: 3 Episodic Other hereditary and degenerative [...] of breath] Onset: 9 10-01-2022 Episodic Other nervous system disorders (12 sources) [...] 1 10-01-2022 Chronic Other nervous system disorders (2 sources) Other disorders of autonomic nervous system; 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 disorders of autonomic nervous system] Onset: 3 Chronic Other nervous system disorders (14 sources) Paresthesia of lower extremity; Translations: [Paresthesia of skin] Onset: 3 10-01-2022 Episodic Other non-traumatic joint disorders (14 sources) Pain in elbow; Translations: [Pain in right elbow] Onset: 3 10-01-2022 Episodic Other nutritional; endocrine; and metabolic disorders (16 sources) Hypocalcemia; Translations: [Hypocalcemia] Onset: 9 10-13-2018 [...] [Difficulty with CPAP use] Onset: 3 Episodic Screening and history of mental health [...] 10-05-2021 12-31-2022 Episodic Diabetes mellitus without complication (3 sources) Hyperglycemia; Translations: [Hyperglycemia, unspecified] Onset: 01-01-2022 Episodic E Codes: Natural/environment (1 source) Other contact with dog, initial encounter; Translations: [OTHER CONTACT WITH DOG INITIAL ENC] Onset: 11-17-2021 Episodic Nausea and vomiting (4 sources) Nausea and vomiting; Translations: [Nausea with vomiting, unspecified] Onset: 01-01-2022 Episodic Nonspecific chest pain (20 sources) Chest pain; Translations: [Chest pain, unspecified] Onset: 01-24-2021 01-06-2020 Episodic Nutritional deficiencies (2 sources) Vitamin B12 deficiency (non anemic); Translations: [Deficiency of other specified B group vitamins] Onset: 09-13-2020 10-01-2022 Episodic Other aftercare (1 source) 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; Translations: [[facility] (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 of antithrombotics/anti platelets] Onset: 08-30-2022 Episodic Other and unspecified benign neoplasm (1 source) Polyp of stomach and duodenum; Translations: [Polyp of stomach and duodenum] Onset: 08-30-2022 Episodic Other circulatory disease (3 sources) History of transient ischemic attack; Translations: [Personal history of transient ischemic attack (TIA), and cerebral infarction without residual deficits] Onset: 01-01-2022 Episodic Other connective tissue disease (3 sources) Pain in left foot; Translations: [PAIN IN LEFT FOOT] Onset: 11-16-2021 Episodic Other connective tissue disease (5 sources) Pain in right leg; Translations: [PAIN IN RIGHT LEG] Onset: 10-03-2021 Episodic Other connective tissue disease (1 source) Pain in left leg; Translations: [PAIN IN LEFT LEG] Onset: 10-05-2021 Episodic Other connective tissue disease (1 source) [...] Translations: [Dysphagia, unspecified] Onset: 08-30-2022 Episodic Other gastrointestinal disorders (2 sources) Aphagia; Translations: [Aphagia] Onset: 03-05-2023 Episodic Other injuries and conditions due to [...] not elsewhere classified] Onset: 01-01-2022 Episodic Other lower respiratory disease (2 sources) Other forms of dyspnea; 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 forms of dyspnea] Onset: 2023 Episodic Other nervous system disorders (2 sources) [...] specified postprocedural states] Onset: 12-24-2022 01-31-2023 Episodic Retinal detachments; defects; vascular occlusion; and retinopathy (20 sources) Detachment of retina of right eye; Translations: [Serous retinal detachment, right eye] Onset: 10-07-2017 01-06-2020 Episodic Septicemia (except in labor) (1 source) [...] W/O DMG NL INIT] Onset: 11-17-2021 Episodic Thyroid disorders (17 sources) Disorder of [...] occurred!Residual codes; unclassified (17 sources) Disease Episodic Procedures Date Procedure Procedure Detail Performing Clinician Start: 06-10-2023 Computed tomography of abdomen and pelvis with contrast MD Radha Burris Work Phone: Start: 05-31-2023 ALL KAPPA/LAMBDA FREE SERUM Generic [...] Phone: Start: 01-03-2022 Hepatic function panel Shane Thurston Villalpando DO Work Phone: Start: 01-03-2022 LACTATE, SEPSIS Shane T Villlapando DO Work Phone: Start: 01-02-2022 LACTATE, SEPSIS Shane T Villalpando DO Work Phone: Start: 01-02-2022 BASIC METABOLIC PANEL W/ REFLEX TO MG FOR LOW K Elio Campos MD Work Phone: Start: 01-02-2022 LACTATE, SEPSIS Shane Thurston Villalpando DO Work Phone: Start: 01-02-2022 SURGICAL PATHOLOGY REPORT Leonel Matos MD Work Phone: Start: 01-02-2022 End: 01-02-2022 Laps surg cholecystectomy w/cholangiography Leonel Matos MD Work Phone: Start: 01-02-2022 Us retroperitoneal real time w/image limited Dariela Walker MD Work Phone: Start: 01-02-2022 Assay of lipase Shane Thurston Villalpando DO Work Phone: Start: 01-02-2022 BASIC METABOLIC PANEL W/ REFLEX TO MG FOR LOW K Shane Thurston Villalpando DO Work Phone: Start: 01-02-2022 Hepatic function panel Shane T Villalpando DO Work Phone: Start: 01-02-2022 LACTATE, SEPSIS Shane T Villalpando DO Work Phone: Start: 01-01-2022 LACTATE, SEPSIS Shane T Villalpando DO Work Phone: Start: 01-01-2022 LACTATE, SEPSIS Shane T Villalpando DO Work Phone: Start: 01-01-2022 Assay of troponin quantitative Nohelia Morris [employer]ILE - [employer] AND POWERPLANT MECHANIC Work Phone: Start: 01-01-2022 LACTATE, SEPSIS Shane T Villalpando DO Work Phone: Start: 01-01-2022 Mri abdomen w/o contrast material Jewel A Liliana [employer] PRO[employer] - AIRFRAME AND POWERPLANT MECHANIC Work Phone: Start: 01-01-2022 Assay of troponin quantitative Nohelia Morris [employer] - AIRFRAME AND POWERPLANT MECHANIC Work Phone: Start: 01-01-2022 Blood count complete [...] panel - Serum or Plasma María Pearl HUMAN PROJECTILE.AIRFRAME AND POWERPLANT MECHANIC Work Phone: Start: 01-01-2022 Assay of troponin quantitative Nohelia Morris [employer] - AIRFRAME AND POWERPLANT MECHANIC Work Phone: Start: 01-01-2022 Assay of troponin quantitative Nohelia Morris [employer] PRO[employer] - AIRFRAME AND POWERPLANT MECHANIC Work Phone: Start: 01-01-2022 LACTATE, SEPSIS Shane Villalpando DO Work Phone: Start: 01-01-2022 Culture bacterial blood aerobic w/id isolates Nohelia Morris [employer]UMAN PRO[employer] - AIRFRAME AND POWERPLANT MECHANIC Work Phone: Start: 01-01-2022 CULTURE, BLOOD 1 Nohelia Morris [employer] PRO[employer] - AIRFRAME AND POWERPLANT MECHANIC Work Phone: Start: 12-12-2021 Antibody screen RADHA BURRIS Comment on above: Performed By: #### [id number] #### [address] Start: 09-14-2020 Laboratory test result [...] Implantation of inse rtable loop recorder Radha Andrew Fatuma Work Phone: Laminectomy Radha cantu Work Phone: Laparoscopic cholecystectomy Radha Burris Work Phone: Operative procedure on knee Chris Luong Operative procedure on uterus AND/OR cervix Radha Andrew Fatuma Work Phone: Tonsillectomy Radha R Pauline xavier Work Phone: Total thyroidectomy Radha R Fatuma Work Phone: Results Test Name Value Interpretation Reference Range Facility [facility] 08-30-2023 ANES ------- Attestation signed by Nikki Lopez MD at 08/30/2023 10:49 AM Nikki Lopez MD, MPH, [facility], [facility], [facility] Interventional Cardiology Pager Email: [email or web address] Patient: Yoli Richelle Antunez Jr. Procedure Information Date/Time: 08/30/23 1030 Procedure: Coronary angiography (Left) Location: [facility] [employer] 3 / [facility] (Cath) Providers: Nikki Lopez MD Clinical information reviewed: Allergies Meds Physical Exam Airway Mallampati: III TM distance: >3 FB Neck ROM: full Cardiovascular Rhythm: regular Rate: normal Dental Pulmonary - normal exam Breath sounds clear to auscultation Abdominal Abdomen: soft Anesthesia Plan ASA 3 regional Anesthetic plan and risks discussed with patient. Use of blood products discussed with patient who consented to blood products. Plan discussed with fellow and attending. Additional Equipment Requests Normal [facility] BASIC METABOLIC PANELon 05-1 Anion gap [Moles/Vol] 13 mmol/L Normal 7-20 [facility] Comment on above: Performed By: #### L [id number] ####[facility] (BEAKER)[address] [place] [address] Calcium [Mass/Vol] 7.9 mg/dL Low 8.6-10.3 [facility] Comment on above: Performed By: #### L [id number] ####[facility] (BEAKER)[address] [place] [address] Chloride [Moles/Vol] 106 mmol/L Normal 98-107 [facility] Comment on above: Performed By: #### L [id number] ####[facility] (BEAKER)[address] [place] [address] CO2 [Moles/Vol] 25 mmol/L Normal 21-31 [facility] Comment on above: Performed By: #### L [id number] ####[facility] (BEAKER)[address] [place] [address] Creatinine [Mass/Vol] 1.30 mg/dL Normal 0.70-1.30 [facility] Comment on above: Performed By: #### L [id number] ####[facility] (BEAKER)[address] [place] [address] GLOMERULAR FILTRATION RATE ML/MIN/1.73 SQ M.PREDICTED 59.1 mL/min/1.73m*2 Low >60.0 [facility] Comment on above: Result Comment: [facility]???s estimated glomerular filtration rate (eGFR) will [...] of individuals. Performed By: #### L [id number] ####[facility] [facility] [address] Glucose [Mass/Vol] 96 mg/dL Normal 70-100 [facility] Comment on above: Performed By: #### L [id number] ####[facility] [facility] [address] Potassium [Moles/Vol] 4.2 mmol/L Normal 3.5-5.1 [facility] Comment on above: Performed By: #### L [id number] ####[facility] ([facility])[address] [facility] [place] [address] Sodium [Moles/Vol] 140 mmol/L Normal 136-145 [facility] Comment on above: Performed By: #### L [id number] ####[facility] ([facility] [facility] [place] [address] Urea nitrogen [Mass/Vol] 23 mg/dL Normal 7-25 [facility] Comment on above: Performed By: #### L [id number] ####[facility] ([facility] [facility] [place] [address] UREA NITROGEN/CREATININE (MASS RATIO) IN SER/PLAS 17.7 Normal [facility] Comment on above: Performed By: #### L [id number] ####[facility] (BEAKER)[address] [facility] [place] [address] CBCon 08-30-2023 Erythrocyte distribution width (RBC) [Ratio] 14.6 % Normal 11.5-15.0 [facility] Comment on above: Performed By: #### L [id number] #### [facility] ([facility] [address] [place] [address] ERYTHROCYTE MEAN CORPUSCULAR HEMOGLOBIN CONCENTRATION (G/DL) BY AUTOMATED 32.6 g/dL Normal 32.0-35.0 [facility] Comment on above: Performed By: #### L [id number] #### [facility] ([facility]) [address] [place] [address] Hematocrit (Bld) [Volume fraction] 42.9 % Normal 39.0-55.0 [facility] Comment on above: Performed By: #### L [id number] #### [facility] ([facility]) [address] [place] [address] Hemoglobin (Bld) [Mass/Vol] 14.0 g/dL Normal 13.0-17.0 [facility] Comment on above: Performed By: #### L [id number] #### [facility] ([facility]) [address] [place] [address] MCH (RBC) [Entitic mass] 27.7 pg Normal 27.0-33.0 [facility] Comment on above: Performed By: #### L [id number] #### [facility] ([facility]) [address] [place] [address] MCV (RBC) [Entitic vol] 84.8 fL Normal 82.0-98.0 [facility] Comment on above: Performed By: #### L [id number] #### [facility] ([facility]) [address] [place] [address] PLATELETS (10*3/UL) IN BLOOD AUTOMATED COUNT 203 10*3/uL Normal 150-400 [facility] Comment on above: Performed By: #### L [id number] #### [facility] ([facility]) [address] [place] [address] RBC (Bld) [#/Vol] 5.06 10*6/uL Normal 4.20-5.70 [facility] Comment on above: Performed By: #### L [id number] #### [facility] [address] [place] [address] WBC (Bld) [#/Vol] 6.49 10*3/uL Normal 4.00-10.60 [facility] Comment on above: Performed By: #### L [id number] #### [facility] ([facility]PER) [address] [id number] HPon 08-30-2023 HP ------- Attestation signed by Nikki Lopez MD at 08/30/2023 10:49 AM Nikki Lopez MD, MPH, [facility], [facility], [facility] Interventional Cardiology Pager Email: [email or web address] H&P reviewed. The patient was examined and there are no changes to the H&P. Hx of CAD, now with multiple episodes of angina pectoris. Will proceed with coronary angiogram for further assessment. Procedure's details, risks and benefits discussed with the patient and he's agreeable. [facility] o [facility] NURSNOTEon 08-30-2023 CAMDENNOTLilly RN educated pt on d/ c instructions. RN encouraged pt to voice any questions or concerns. Pt verbalizes no questions or concerns at this time. Pt was wheeled off of unit with all of belongings. [facility] Orders Onlyon 08-23-2023 Orders Only [id number] Fr freda Antunze Jr. 1955 M Date Provider Department Center 08/23/2023 GOLD RUIZ [facility] Family History Problem Relation Age of Onset Hypertension Mother Cancer Mother Stroke Mother Hypertension Father Aortic aneurysm Father Cancer Father Aortic aneurysm Paternal Grandfather Sudden Neg Hx Family Status - Relation Status Age at Mother Father Paternal Grandfather Neg Hx Normal [facility] Office Visiton 08-22-2023 Follow-up visit [id number] Fr Harmony fabada Peoples Jr. 1955 M Date Provider Department Center 08/22/2023 SHUKRI READ [facility] Family History Problem Relation Age of Onset Hypertension Mother Cancer Mother Stroke Mother Hypertension Father Aortic aneurysm Father Cancer Father Aortic aneurysm Paternal Grandfather Sudden Neg Hx Family Status - Relation Status Age at Mother Father Paternal Grandfather Neg Hx Level of Service:86820 IN OFFICE/OUTPATIENT ESTABLISHED LOW MDM 20 MIN Normal [facility] Office Visiton 07-18-2023 Follow-up visit [id number] Fr camden Antunezomariada Peoples Jr. 1955 M Date Provider Department Center 07/18/2023 YANDEL VILLEGAS Family History Problem Relation Age of Onset Hypertension Mother Cancer Mother Stroke Mother Hypertension Father Aortic aneurysm Father Cancer Father Aortic aneurysm Paternal Grandfather Sudden Neg Hx Family Status - Relation Status Age at Mother Father Paternal Grandfather Neg Hx Level of Service:24216 IN OFFICE/OUTPATIENT ESTABLISHED MOD MDM 30 MIN Reason for Visit and Comments: Palpitations [989114] Atrial Fibrillation [80] Syncope [506] s/p pacemaker [Other] Wound Care [617] Normal [facility] Office Visiton 07-11-2023 Follow-up visit [id number] Fr camden Antunezomariada Peoples Jr. 1955 M Date Provider Department Center 07/11/2023 YANDEL VILLEGAS Family History Problem Relation Age of Onset Hypertension Mother Cancer Mother Stroke Mother Hypertension Father Aortic aneurysm Father Cancer Father Aortic aneurysm Paternal Grandfather Sudden Neg Hx Family Status - Relation Status Age at Mother Father Paternal Grandfather Neg Hx Level of Service:94524 IN OFFICE/OUTPATIENT ESTABLISHED MOD MDM 30 MIN Reason for Visit and Comments: Palpitations [922571] Wound Check [443163] Normal [facility] BASIC METABOLIC PANELon 06-20 Anion gap [Moles/Vol] 13 mmol/L Normal 7-20 [facility] Comment on above: Performed By: #### L [id number] #### [facility] ([facility]) [address] [place] [address] Calcium [Mass/Vol] 7.4 mg/dL Low 8.6-10.3 [facility] Comment on above: Performed By: #### L [id number] #### [facility] [address] [place] [address] Chloride [Moles/Vol] 105 mmol/L Normal 98-107 [facility] Comment on above: Performed By: #### L [id number] #### [facility] [address] [place] [address] CO2 [Moles/Vol] 26 mmol/L Normal 21-31 [facility] Comment on above: Performed By: #### L [id number] #### [facility] [address] [place] [address] Creatinine [Mass/Vol] 1.28 mg/dL Normal 0.70-1.30 [facility] Comment on above: Performed By: #### L [id number] #### [facility] ([facility]) [address] [place] [address] GLOMERULAR FILTRATION RATE ML/MIN/1.73 SQ M.PREDICTED 60.2 mL/min/1.73m*2 Normal >60.0 [facility] Comment on above: Result Comment: The [facility]???s estimated glomerular filtration rate (eGFR) will [...] individuals. Performed By: #### L [id number] #### [facility] ([facility]) [address] [place] [address] Glucose [Mass/Vol] 88 mg/dL Normal 70-100 [facility] Comment on above: Performed By: #### L [id number] #### [facility] ([facility]) [address] [place] [address] Potassium [Moles/Vol] 4.0 mmol/L Normal 3.5-5.1 [facility] Comment on above: Performed By: #### L [id number] #### [facility] ([facility]) [address] [address] Sodium [Moles/Vol] 140 mmol/L Normal 136-145 [facility] Comment on above: Performed By: #### L [id number] #### [facility] ([facility]) [address] [place] [address] Urea nitrogen [Mass/Vol] 21 mg/dL Normal 7-25 [facility] Comment on above: Performed By: #### L [id number] #### [facility] ([facility]) [address] [place] [address] UREA NITROGEN/CREATININE (MASS RATIO) IN SER/PLAS 16.4 Normal [facility] Comment on above: Performed By: #### L [id number] #### [facility] ([facility]) [address] [place] [address] CBC WITH AUTO DIFFERENTIALon 07-09-2023 Basophils (Bld) [#/Vol] 0.05 10*3/uL Normal 0.00-0.20 [facility] Comment on above: Performed By: #### L [id number] #### [facility] ([facility]) [address] [address] Basophils/100 WBC (Bld) 0.7 % Normal 0.0-1.0 [facility] Comment on above: Performed By: #### L [id number] #### [facility] ([facility]) [address] [address] Eosinophils (Bld) [#/Vol] 0.22 10*3/uL Normal 0.00-0.50 [facility] Comment on above: Performed By: #### L [id number] #### [facility] ([facility]) [address] [place] [address] Eosinophils/100 WBC (Bld) 3.1 % Normal 0.0-6.0 [facility] Comment on above: Performed By: #### L [id number] #### [facility] [address] [place] [address] Erythrocyte distribution width (RBC) [Ratio] 14.4 % Normal 11.5-15.0 [facility] Comment on above: Performed By: #### L [id number] #### [facility] [address] [place] [address] ERYTHROCYTE MEAN CORPUSCULAR HEMOGLOBIN CONCENTRATION (G/DL) BY AUTOMATED 33.0 g/dL Normal 32.0-35.0 [facility] Comment on above: Performed By: #### L [id number] #### [facility] [address] [place] [address] Hematocrit (Bld) [Volume fraction] 43.7 % Normal 39.0-55.0 [facility] Comment on above: Performed By: #### L [id number] #### [facility] ([facility]) [address] [place] [address] Hemoglobin (Bld) [Mass/Vol] 14.4 g/dL Normal 13.0-17.0 [facility] Comment on above: Performed By: #### L [id number] #### [facility] ([facility]) [address] [place] [address] Immature granulocytes (Bld) [#/Vol] 0.04 10*3/uL Normal 0.00-0.20 [facility] Comment on above: Performed By: #### L [id number] #### [facility] ([facility]) [address] [place] [address] Immature granulocytes/100 WBC (Bld) 0.6 % Normal 0.0-1.0 [facility] Comment on above: Performed By: #### L [id number] #### [facility] [address] [place] [address] Lymphocytes (Bld) [#/Vol] 1.82 10*3/uL Normal 1.20-4.00 [facility] Comment on above: Performed By: #### L [id number] #### [facility] ([facility]) [address] [place] [address] Lymphocytes/100 WBC (Bld) 25.7 % Normal 20.0-45.0 [facility] Comment on above: Performed By: #### L [id number] #### [facility] ([facility]) [address] [place] [address] MCH (RBC) [Entitic mass] 27.7 pg Normal 27.0-33.0 [facility] Comment on above: Performed By: #### L [id number] #### [facility] ([facility]) [address] [place] [address] MCV (RBC) [Entitic vol] 84.0 fL Normal 82.0-98.0 [facility] Comment on above: Performed By: #### L [id number] #### [facility] ([facility]) [address] [place] [address] Monocytes (Bld) [#/Vol] 0.70 10*3/uL Normal 0.10-1.00 [facility] Comment on above: Performed By: #### L [id number] #### [facility] [address] [place] [address] Monocytes/100 WBC (Bld) 9.9 % Normal 5.0-12.0 [facility] Comment on above: Performed By: #### L [id number] #### [facility] ([facility]) [address] [place] [address] Neutrophils (Bld) [#/Vol] 4.26 10*3/uL Normal 1.60-7.60 [facility] Comment on above: Performed By: #### L [id number] #### [facility] ([facility]) [address] [place] [address] Neutrophils/100 WBC (Bld) 60.0 % Normal 40.0-72.0 [facility] Comment on above: Performed By: #### L [id number] #### [facility] ([facility]) [address] [place] [address] NRBC (PER 100 WBCS) BY AUTOMATED COUNT 0.0 % Normal 0 [facility] Comment on above: Performed By: #### L [id number] #### [facility] ([facility]) [address] [place] [address] PLATELETS (10*3/UL) IN BLOOD AUTOMATED COUNT 221 10*3/uL Normal 150-400 [facility] Comment on above: Performed By: #### L [id number] #### [facility] ([facility]) [address] [place] [address] RBC (Bld) [#/Vol] 5.20 10*6/uL Normal 4.20-5.70 [facility] Comment on above: Performed By: #### L [id number] #### [facility] ([facility]) [address] [place] [address] WBC (Bld) [#/Vol] 7.09 10*3/uL Normal 4.00-10.60 [facility] Comment on above: Performed By: #### L [id number] #### [facility] ([facility]) [address] [place] [address] HPon 07-09-2023 HP H&P reviewed. The pa tien was examined and there are no changes to the H&P. Normal [facility] HP History Of Present Roro Peoples Jeseniamisaeljordi Isidro is a 68 y.o. male presenting with . Bradycardia Past Medical History He has a past medical history of Arrhythmia, Atrial fibrillation (CMS/HCC), Chronic kidney disease, Coronary artery disease, Disease of thyroid gland, Hypertension, Pancreatitis, gallstone, and TIA (transient ischemic attack). Surgical History He has a past surgical history that includes CTA Chest W IV Contrast (07/22/2020); CTA Chest W IV Contrast (08/30/2020); Cardiac catheterization; Appendectomy; Back surgery; Neck surgery; Thyroidectomy; Atrial ablation surgery; Cholecystectomy; MRA head wo IV contrast (07/09/2022); and MRA neck wo IV contrast (07/09/2022). Social History He reports that he quit smoking about 40 years ago. His smoking use included cigarettes and cigars. He started smoking about 56 years ago. He has a 16.00 pack-year smoking history. He quit smokeless tobacco use about 40 years ago. His smokeless tobacco use included chew. He reports current alcohol use of about 1.0 standard drink of alcohol per week. He reports that he does not use drugs. Allergies Penicillins, Tikosyn [dofetilide], and Vancomycin Medications Medications Prior to Admission Medication Sig Dispense Refill Last Dose aspirin 81 mg chewable tablet Chew 1 tablet (81 mg) in the morning. Do not start before March 08, 2022. 30 tablet 3 07/08/2023 calcitriol (Rocaltrol) 0.25 mcg capsule 1 (one) time each day at the same time. 07/09/2023 cyanocobalamin (Vitamin B-12) 1,000 mcg tablet Take 1.25 mcg by mouth every 7 (seven) days. 07/08/2023 levothyroxine (Synthroid, Levoxyl) 150 mcg tablet Take 150 mcg by mouth before breakfast. 07/09/2023 metoprolol tartrate (Lopressor) 25 mg tablet Take 0.5 tablets (12.5 mg) by mouth in the morning and at bedtime. 90 tablet 3 07/09/2023 nitroglycerin (Nitrostat) 0.[address] 0.4 mg under the tongue if needed each day. Not Taking Review of Systems Physical Exam Last Recorded Vitals Blood pressure 116/81, pulse 63, resp. rate 16, SpO2 98 %. Relevant Results none Assessment/Plan Principal Problem: Sick sinus syndrome (CMS/HCC) Active Problems: Paroxysmal atrial fibrillation (CMS/HCC) Pacemaker Shukri Vilchis MD [facility] NURSNOTEon 07-09-2023 NURSNOTE CHG wipes and betadi ne nasal swabs completed. Normal [facility] NURSNOTE RN educated pt on d/ c instructions. RN encouraged pt to voice any questions or concerns. Pt verbalizes no questions or concerns at this time. Pt was wheeled off of unit with all of belongings. Normal [facility] Orders Onlyon 07-09-2023 Orders Only [id number] Fr Harmony freda Peoples Jr. 1955 M Date Provider Department Center 07/09/2023 RICH SANCHEZ [facility] V[facility] LAB [facility] Family History Problem Relation Age of Onset Hypertension Mother Cancer Mother Stroke Mother Hypertension Father Aortic aneurysm Father Cancer Father Aortic aneurysm Paternal Grandfather Sudden Neg Hx Family Status - Relation Status Age at Mother Father Paternal Grandfather Neg Hx [facility] 29on 06-17-2023 29 Addended by: Patrick CHAIREZ on: 06/17/2023 03:26 PM Modules accepted: Orders Normal [facility] HPon 06-17-2023 JOE Antunez is a pleasant 68 year old male previously evaluated for episodes of syncope and near syncope with history of atrial fibrillation and rf ablation at our [facility] in the Heart and Vascular Center at the [facility]. He was recently evaluated by Dr. Vilchis and noted to have a sick sinus syndrome-tachycardia/ bradycardia syndrome, to undergo PPM implantation. ILR data reveals alternating bradycardia, tachycardia (a flutter) per Dr. Vilchis last visit 05/30/2023. He was sent for an echocardiogram and stress test which I reviewed today. Stress test negative for ischemia. Likely artifact. Echocardiogram with LVH and low normal EF. Aortic root/ ascending aorta mild dilated. Chief Complaint: Syncope. 4-5 daily. No trauma. Dystonia, verbal aphasia. 1-2 monthly. Review of Systems Neurological: Positive for dizziness, headaches and light-headedness. Objective Vitals reviewed. Constitutional: Appearance: Healthy appearance. Not in distress. Neck: Vascular: No JVR. JVD normal. Pulmonary: [...] and oriented to person, place and time. Lab Review: Stress test 05/2023: [facility] CONCLUSION: 1. No acute or reversible ischemia. 2. Diaphragm attenuation artifact versus mildly decreased perfusion of the inferior wall; stable between stress and rest imaging. Attenuation artifact is suspected. 3. Normal wall motion, left ventricle volume, and ejection fraction. Dictated by: Donnell Du M.D. on 06/07/2023 at 12:03 Approved by: Donnell Du M.D. on 06/07/2023 at 13:36 [facility] echocardiogram 05/2023: CONCLUSION: 1. The left ventricle is normal in size and exhibits mild concentric hypertrophy with low normal systolic function. LVEF is 50 to 55%. 2. Mild to moderate right ventricular dilatation with normal systolic function. 3. Moderate biatrial dilatation. 4. Normal diastolic function. 5. Mild mitral, aortic, pulmonic and tricuspid regurgitation. 6. Normal right-sided pressures. 7. No pericardial effusion. 8. AORTIC ROOT: Aortic root is mildly to moderately dilated (4.4 cm), ascending aorta is mildly dilated (4.1 cm). Assessment/Plan The primary encounter diagnosis was Autonomic dysfunction. Diagnoses of Paroxysmal atrial fibrillation (CMS/HCC) and Sick sinus syndrome (CMS/HCC) were also pertinent to this visit. Problem List Items Addressed This Visit Circulatory Paroxysmal atrial fibrillation (CMS/HCC) Other Visit Diagnoses Autonomic dysfunction - Primary Sick sinus syndrome (CMS/HCC) We discussed stress and echo. Autonomic dysfunction/ syncope; unstable: PPM Sick sinus syndrome; tachycardia/ bradycardia; unstable : PPM We discussed pre surgery, benefits, risks post op PPM He had all questions answered. RTC [address] [place] [address] Office Visiton 06-17-2023 Follow-up visit [id number] Fr freda Antunez Jr. 1955 M Date Provider Department Center 06/17/2023 JACKIE HASTINGS [facility] CARD [facility] Family History Problem Relation Age of Onset Hypertension Mother Cancer Mother Stroke Mother Hypertension Father Aortic aneurysm Father Cancer Father Aortic aneurysm Paternal Grandfather Sudden Neg Hx Family Status - Relation Status Age at Mother Father Paternal Grandfather Neg Hx Level of Service:32947 IN OFFICE/OUTPATIENT ESTABLISHED LOW MDM 20 MIN Reason for Visit and Comments: Syncope [506] Normal [facility] Blood Urea Nitrogenon 2023 Urea nitrogen [Mass/Vol] 27 mg/dL High 11-13 [facility] Comment on above: Order Comment: STAT FOR ct Performed By: #### C REAT, BUN #### [address] abdomen pelvis w conon CT abdomen pelvis w con [facility] Main [place] [address] [place] [address] CT Scan Report Signed Patient: Yoli Antunez Jr MR#: [id number] : 1955 Acct:[id number] Age/Sex: 68 / M ADM Date: 06/10/23 Loc: CT Room: Type: [facility] Attending Dr: Charlene Soria MD Copies to: Charlene Soria MD Ordering Provider: Charlene Soria MD Date of Service: 06/10/23 CT/CT abdomen pelvis w con: Abdominal pain;Diarrhea CT ABDOMEN AND PELVIS WITH CONTRAST COMPARISON: 06/07/2018 CLINICAL DATA: Generalized abdominal pain and diarrhea for the past 4 months following hernia surgery. Spiral images were obtained through the abdomen pelvis findings oral and 90 mL of Isovue-300. This CT exam was performed using one or more following dose reduction techniques: Automated exposure control, adjustment of the mA and/or kV according to patient size, or use of iterative reconstruction technique. Limited cuts through the lung bases show mild atelectasis and/or scarring. There is also slight thickening of the wall and the distal thoracic esophagus/GE junction. There is no recurrent hiatal hernia. This might relate to surgery. A small hypodensity is again seen at the inferior left hepatic lobe. This may be a cyst. No new intrahepatic abnormalities are identified. The gallbladder is surgically absent. No biliary dilatation or common duct stones are seen. There are splenic granulomas. The pancreas and adrenal glands show no acute findings. There is minor bilateral perinephric fibrofatty stranding. The nephrograms are symmetric. No hydronephrosis is seen. There is mild atherosclerotic plaque involving the aorta and iliac arteries. There are tiny abdominal lymph nodes. No ascites is present. A small duodenal diverticulum is again seen. Small bowel loops are not distended. There is air and stool along the colon. There is subtle levoscoliotic curvature as well as degenerative changes at the spine, greatest at L3-4 toward the right. Images through the pelvis show no dilated small bowel. There is mild distal colonic stool. Sigmoid diverticula are visualized, without associated active inflammation. The appendix is not obvious. The prostate is mildly prominent and there is slight mass effect at the bladder trigone. No other bladder abnormalities are seen. There are bilateral patulous inguinal rings containing fat. There are small benign inguinal lymph nodes. No ascites is noted. CT/CT abdomen pelvis w con IMPRESSION: WALL THICKENING AT THE DISTAL ESOPHAGUS/GE JUNCTION THAT MAY RELATE TO PRIOR HIATAL HERNIA REPAIR. NO BOWEL OR URINARY TRACT OBSTRUCTION. DIVERTICULOSIS. MILD PROSTATE HYPERTROPHY. NO OTHER ACUTE FINDINGS. Impression dictated by: Aide Banks M.D.06/10/2023 4:04 PM Dictation Location: [place] [address] Transcribed By: WILL 06/10/23 1604 Dictated By: Aide Banks MD 06/10/23 1550 Signed By: 06/10/23 1604 [facility] Creatinineon 06-10-2023 Creatinine [Mass/Vol] 1.28 mg/dL Normal 0.70-1.30 [facility] Comment on above: Order Comment: STAT FOR ct Performed By: #### C DANYA BUN #### [address] GFR/1.73 sq M.predicted MDRD (S/P/Bld) [Vol rate/Area] mL/min/{1.73_m2} [facility] Comment on above: Order Comment: STAT FOR ct Result Comment: PERF ORMED BY: [facility] [address] [place] [address] PATHOLOGIST SEWAGE SCREEN OPERATOR ABDOUL ORR M.D. Performed By: #### C REAT, BUN #### [facility] [address] Creatinine [Mass/volume] in Serum or PlasmaOrdered By: Imad Asaad on 06-10-2023 Creatinine [Mass/Vol] 1.28 mg/dL 0.70-1.30 [facility] No Panel InformationOrdered By: Imad Asaad on 06-10-2023 Estimated GFR (CKD-EPI) > 60.0 mL/Min [facility] Creatinine Clearance (Chem N/A [facility] Urea nitrogen [Mass/volume] in Serum or PlasmaOrdered By: Imad Asaad on 06-10-2023 Urea nitrogen [Mass/Vol] 27 mg/dL 11-13 [facility] ALL KAPPA/LAMBDA FREE SERUMo n 06-01-2023 [facility] KAPPA LC FREE SER-MCNC 30.6 mg/L High 3.3 - 19.4 mg/L [facility] Comment on above: Rarely, increased se rum free light chains levels may not be detected or accurately quantified due to prozone phenomenon or in high viscosity samples using this immunoturbidimetric assay. Correlation with other laboratory results and clinical findings is recommended. The [place] Free Light Chain was performed using the Binding Site Optilite immunoturbidimetric method. Result obtained with different assay methods or kits cannot be used interchangeably. [facility] KAPPA LC/LAMBDA SER 1.72 High 0.26 - 1.65 [facility] LAMBDA LC FREE SERPL-MCNC 17.8 mg/L 5.7 - 26.3 mg/L [facility] Comment on above: Rarely, increased se [...] Interpretation and review of laboratory results Abnormal [facility] Specimen Type: BLOOD SPECIMEN Ordering Facility: [facility] Address: [address] [place] [address] Original Ordering Provider: MARÍA CORTES [facility] KAPPA/BETHEA,FREE,SERon 2023 Immunoglobulin light chains.kappa.free (S) [Mass/Vol] 30.6 mg/L High 3.3-19.4 [facility] Comment on above: Order Comment: Speci men Type: BLOOD SPECIMENOrdering Facility: [facility] Address: [address] [place] [address] Result Comment: Rare ly, increased serum free light chains levels may not be detected or accurately quantified due to prozone phenomenon or in high viscosity samples using this immunoturbidimetric assay. Correlation with other laboratory results and clinical findings is recommended. The [place] Free Light Chain was performed using the Binding Site Optilite immunoturbidimetric method. Result obtained with different assay methods or kits cannot be used interchangeably. Performed By: #### K LFRS ####[facility] LABCLIA [id number] [place] [address] [place] Immunoglobulin light chains.kappa/Immunog lobulin light chains.lambda (S) [Mass ratio] 1.72 High 0.26-1.65 [facility] Comment on above: Order Comment: Speci men Type: BLOOD SPECIMENOrdering Facility: [facility] Address: [address] [place] [address] Performed By: #### K LFRS ####[facility] LABCLIA [id number] [place] [address] [place] Immunoglobulin light chains.lambda.free [Mass/Vol] 17.8 mg/L Normal 5.7-26.3 [facility] Comment on above: Order Comment: Speci men Type: BLOOD SPECIMENOrdering Facility: [facility] Address: [address] [place] [address] Result Comment: Rare ly, increased serum free [...] used interchangeably. Performed By: #### K LFRS ####[facility] LABCLIA [id number] [address] [facility] Office Visiton 05-30-2023 Follow-up visit [id number] Fr freda Antunez Jr. 1955 M Date Provider Department Center 05/30/2023 Tami-SHUKRI VILCHIS LEX [facility] Family History Problem Relation Age of Onset Hypertension Mother Cancer Mother Stroke Mother Hypertension Father Aortic aneurysm Father Cancer Father Aortic aneurysm Paternal Grandfather Sudden Neg Hx Family Status - Relation Status Age at Mother Father Paternal Grandfather Neg Hx Level of Service:49509 IN OFFICE/OUTPATIENT ESTABLISHED LOW MDM 20 MIN Normal [facility] Office Visiton 2023 Follow-up visit [id number] Fr freda Antunez Jr. 1955 M Date Provider Department Center 2023 Mary6-ELYSSA SOLANO CARD [facility] Family History Problem Relation Age of Onset Hypertension Mother Cancer Mother Stroke Mother Hypertension Father Aortic aneurysm Father Cancer Father Aortic aneurysm Paternal Grandfather Sudden Neg Hx Family Status - Relation Status Age at Mother Father Paternal Grandfather Neg Hx Level of Service:44679 IN OFFICE/OUTPATIENT ESTABLISHED MOD MDM 30 MIN Normal [facility] Documentationon 05-17-2023 Documentation [id number] Fr freda Antunez Jr. 1955 M Date Provider Department Center 05/17/202338840-OFQODUSHELLY MURCIA [facility] C[facility] Family History Problem Relation Age of Onset Hypertension Mother Cancer Mother Stroke Mother Hypertension Father Aortic aneurysm Father Cancer Father Aortic aneurysm Paternal Grandfather Sudden Neg Hx Family Status - Relation Status Age at Mother Father Paternal Grandfather Neg Hx Reason for Visit and Comments: Specialty Pharmacy Note: Corlanor [Other] Normal [facility] 36on 05-16-2023 36 Hi! I was looking to Rx ivabradine for Mr. Antunez but I saw there's a contraindication with diltiazem. Do you typically have patients on both or should I stop the diltiazem? He is also on metoprolol 12.5mg BID. Appreciate your help! Harriet [facility] Orders Onlyon 05-16-2023 Orders Only [id number] Fr freda Antunez . 1955 M Date Provider Department Center 05/16/2023 YANDEL VILLEGAS [facility] Family History Problem Relation Age of Onset Hypertension Mother Cancer Mother Stroke Mother Hypertension Father Aortic aneurysm Father Cancer Father Aortic aneurysm Paternal Grandfather Sudden Neg Hx Family Status - Relation Status Age at Mother Father Paternal Grandfather Neg Hx [facility] 36on 04-26-2023 36 Sounds to be related to his autonomic dysfunction. Please let him know I discussed with Jackie. Recommend we try him on metoprolol, we can start low at 12.5mg BID, and uptitrate. If he does not tolerate it then we can try a different medication. [facility] 36on 04-25-2023 36 Hi! Trying to think of how to help Jamil. Do you think we should try to get Corlanor on board for him? Harriet [facility] 36on 04-24-2023 36 Can we lower his thr eshold for alarms to be HR >130? [facility] 36 Thank you! [facility] 36 Jazzy, please let kasandra ent know his loop recorder hasn't shown any alarms. We can try him on low dose metoprolol 12.5mg twice daily to see if this would help. I don't remember if he's tried metoprolol in the past or not. [facility] 36on 04-23-2023 36 Are you guys able to see if he's had any events on his LOOP? I didn't see anything in Evoke. [facility] 36 Can we lower his thr eshold for alarms to be HR >130? [facility] Telephoneon 04-19-2023 Telephone [id number] Fr freda Antunez Jr. 1955 M Date Provider Department Josephine 04/19/2023 JAZZY DHILLON Family History Problem Relation Age of Onset Hypertension Mother Cancer Mother Stroke Mother Hypertension Father Aortic aneurysm Father Cancer Father Aortic aneurysm Paternal Grandfather Sudden Neg Hx Family Status - Relation Status Age at Mother Father Paternal Grandfather Neg Hx Normal [facility] Julian 04-16-2023 L ------- Specimen: [id number] Received: 04/16/23 Status: NIKHIL Bautista Num: [id number] Spec Type: Surgical Subm Dr: Charlene Soria MD Tissues: A Colon Biopsy (RANDOM COLON BX) B Colon Biopsy (ASC POLYP) Procedures: GUSTAVO/Herbie Eid/Hilda L4/2 Age/ Patient Sex Location Account Attending Physician Yoli Antunez Jr 67/M [id number] Charlene Soria MD SPEC NUM: [id number] RECD: 04/16/23 STATUS: NIKHIL CALDWELLDaisha NUM: [id number] RENAN: 04/16/23- SUBM DR: Charlene Soria MD ENTERED: 04/16/[address] [facility] [address]: SPEC TYPE: Surgical DEPT: S ORDERED: HE/4, Gross/Micro [...] Entirely submitted in one cassette labeled B1. Specimen: [id number] Received: 04/16/23 Status: NIKHIL Michele Num: [id number] Spec Type: Surgical Subm Dr: Charlene Soria MD Tissues: A Colon Biopsy (RANDOM COLON BX) B Colon Biopsy (ASC POLYP) Procedures: HE/4, Gross/Micro L4/2 Patient: Yoli Antunez Jr [id number] (Continued) Specimen: [id number] Received: 04/16/23 (Continued) Signed (signature on file) Dony Duenas MD 04/17/232228 Specimen: [id number] Received: 04/16/23 Status: NIKHIL Bautista Num: [id number] Spec Type: Surgical Subm Dr: Charlene Soria MD Tissues: A Colon Biopsy (RANDOM COLON BX) B Colon Biopsy (ASC POLYP) Procedures: Herbie BUITRAGO/Micro L4/2 Patient: Yoli Antunez Jr [id number] (Continued) Specimen: [id number] Received: 04/16/23 (Continued) Microscopic Description A. Two H E slides reviewed. The microscopic examination confirms the diagnosis. B. Two H E slides reviewed. The microscopic examination confirms the diagnosis. CPT Codes 10846b6 Specimen: [id number] Received: 04/16/23 Status: NIKHIL Bautista Num: [id number] Spec Type: Surgical Subm Dr: Charlene Soria MD Tissues: A Colon Biopsy (RANDOM COLON BX) B Colon Biopsy (ASC POLYP) Procedures: HE/4, Gross/Micro L4/2 Patient: Yoli Antunez Jr [id number] (Continued) Signed (signature on file) Dony Duenas MD 04/17/232228 [facility] Office Visiton 04-03-2023 Follow-up visit [id number] Fr freda Antunez Jr. 1955 M [facility] Provider Department Center 04/03/2023 YANDEL VILLEGAS CARD [facility] Family History Problem Relation Age of Onset Hypertension Mother Cancer Mother Stroke Mother Hypertension Father Aortic aneurysm Father Cancer Father Aortic aneurysm Paternal Grandfather Sudden Neg Hx Family Status - Relation Status Age at Mother Father Paternal Grandfather Neg Hx Level of Service:67020 IN OFFICE/OUTPATIENT ESTABLISHED LOW MDM 20-29 MIN Reason for Visit and Comments: Atrial Fibrillation [80] Normal [facility] 36on 03-25-2023 36 Report left in your mailbox. Normal [facility] Patient Messageon 03-18-2023 Patient Message [id number] Fr freda Antunez Jr. 1955 M Date Provider Department Center 03/18/2023 JACKIE HASTINGS [facility] CARD [facility] Family History Problem Relation Age of Onset Hypertension Mother Cancer Mother Stroke Mother Hypertension Father Aortic aneurysm Father Cancer Father Aortic aneurysm Paternal Grandfather Sudden Neg Hx Family Status - Relation Status Age at Mother Father Paternal Grandfather Neg Hx Normal [facility] APTTon 03-05-2023 ACTIVATED PARTIAL THROMBOPLASTIN TIME IN PPP BY COAGULATION ASSAY 33.2 Seconds Normal 25.0-35.0 [facility] Comment on above: Result Comment: Clin ical significance of the APTT is questionable in the presence of heparin. Performed By: #### L [id number] #### [facility] ([facility]) [address] [place] [address] CBC WITH AUTO DIFFERENTIALon 03-05-2023 Basophils (Bld) [#/Vol] 0.05 10*3/uL Normal 0.00-0.20 [facility] Comment on above: Performed By: #### L [id number] #### [facility] ([facility]) [address] [place] [address] Basophils/100 WBC (Bld) 0.6 % Normal 0.0-1.0 [facility] Comment on above: Performed By: #### L [id number] #### [facility] ([facility]) [address] [place] [address] Eosinophils (Bld) [#/Vol] 0.26 10*3/uL Normal 0.00-0.50 [facility] Comment on above: Performed By: #### L [id number] #### [facility] ([facility]) [address] [place] [address] Eosinophils/100 WBC (Bld) 3.0 % Normal 0.0-6.0 [facility] Comment on above: Performed By: #### L [id number] #### [facility] ([facility]) [address] [place] [address] Erythrocyte distribution width (RBC) [Ratio] 14.6 % Normal 11.5-15.0 [facility] Comment on above: Performed By: #### L [id number] #### [facility] ([facility]) [address] [place] [address] ERYTHROCYTE MEAN CORPUSCULAR HEMOGLOBIN CONCENTRATION (G/DL) BY AUTOMATED 33.7 g/dL Normal 32.0-35.0 [facility] Comment on above: Performed By: #### L [id number] #### [facility] ([facility]) [address] [facility] [place] [address] Hematocrit (Bld) [Volume fraction] 39.8 % Normal 39.0-55.0 [facility] Comment on above: Performed By: #### L [id number] #### [facility] ([facility]) [address] [place] [address] Hemoglobin (Bld) [Mass/Vol] 13.4 g/dL Normal 13.0-17.0 [facility] Comment on above: Performed By: #### L [id number] #### [facility] ([facility]) [address] [place] [address] Immature granulocytes (Bld) [#/Vol] 0.05 10*3/uL Normal 0.00-0.20 [facility] Comment on above: Performed By: #### L [id number] #### [facility] ([facility]) [address] [place] [address] Immature granulocytes/100 WBC (Bld) 0.6 % Normal 0.0-1.0 [facility] Comment on above: Performed By: #### L [id number] #### [facility] ([facility]) [address] [place] [address] Lymphocytes (Bld) [#/Vol] 2.42 10*3/uL Normal 1.20-4.00 [facility] Comment on above: Performed By: #### L [id number] #### [facility] ([facility]) [address] [place] [address] Lymphocytes/100 WBC (Bld) 27.8 % Normal 20.0-45.0 [facility] Comment on above: Performed By: #### L [id number] #### [facility] ([facility]) [address] [place] [address] MCH (RBC) [Entitic mass] 28.4 pg Normal 27.0-33.0 [facility] Comment on above: Performed By: #### L [id number] #### [facility] ([facility]) [address] [place] [address] MCV (RBC) [Entitic vol] 84.3 fL Normal 82.0-98.0 [facility] Comment on above: Performed By: #### L [id number] #### [facility] ([facility]) [address] [place] [address] Monocytes (Bld) [#/Vol] 0.90 10*3/uL Normal 0.10-1.00 [facility] Comment on above: Performed By: #### L [id number] #### [facility] ([facility]) [address] [place] [address] Monocytes/100 WBC (Bld) 10.4 % Normal 5.0-12.0 [facility] Comment on above: Performed By: #### L [id number] #### [facility] ([facility]) [address] [place] [address] Neutrophils (Bld) [#/Vol] 5.01 10*3/uL Normal 1.60-7.60 [facility] Comment on above: Performed By: #### L [id number] #### [facility] ([facility]) [address] [place] [address] Neutrophils/100 WBC (Bld) 57.6 % Normal 40.0-72.0 [facility] Comment on above: Performed By: #### L [id number] #### [facility] ([facility]) [address] [place] [address] NRBC (PER 100 WBCS) BY AUTOMATED COUNT 0.0 % Normal 0 [facility] Comment on above: Performed By: #### L [id number] #### [facility] ([facility]) [address] [place] [address] PLATELETS (10*3/UL) IN BLOOD AUTOMATED COUNT 236 10*3/uL Normal 150-400 [facility] Comment on above: Performed By: #### L [id number] #### [facility] [address] [place] [address] RBC (Bld) [#/Vol] 4.72 10*6/uL Normal 4.20-5.70 [facility] Comment on above: Performed By: #### L [id number] #### [facility] ([facility]) [address] [place] [address] WBC (Bld) [#/Vol] 8.69 10*3/uL Normal 4.00-10.60 [facility] Comment on above: Performed By: #### L [id number] #### [facility] ([facility]) [address] [place] [address] COMPREHENSIVE METABOLIC PANE [facility] 03-05-2023 Albumin [Mass/Vol] 4.7 g/dL Normal 3.5-5.7 [facility] Comment on above: Performed By: #### L [id number] #### [facility] ([facility]) [address] [place] [address] ALP [Catalytic activity/Vol] 69 U/L Normal 34-104 [facility] Comment on above: Performed By: #### L [id number] #### [facility] ([facility]) [address] [place] [address] ALT [Catalytic activity/Vol] 17 U/L Normal 7-52 [facility] Comment on above: Performed By: #### L [id number] #### [facility] ([facility]) [address] [place] [address] Anion gap [Moles/Vol] 15 mmol/L Normal 7-20 [facility] Comment on above: Performed By: #### L [id number] #### [facility] ([facility]) [address] [place] [address] AST [Catalytic activity/Vol] 19 U/L Normal 13-39 [facility] Comment on above: Performed By: #### L [id number] #### [facility] ([facility]) [address] [place] [address] Bilirubin [Mass/Vol] 0.4 mg/dL Normal 0.3-1.0 [facility] Comment on above: Performed By: #### L [id number] #### [facility] [address] [place] [address] Calcium [Mass/Vol] 7.6 mg/dL Low 8.6-10.3 [facility] Comment on above: Performed By: #### L [id number] #### [facility] [address] [place] [address] Chloride [Moles/Vol] 105 mmol/L Normal 98-107 [facility] Comment on above: Performed By: #### L [id number] #### [facility] [address] [place] [address] CO2 [Moles/Vol] 23 mmol/L Normal 21-31 [facility] Comment on above: Performed By: #### L [id number] #### [facility] ([facility]) [address] [place] [address] Creatinine [Mass/Vol] 1.32 mg/dL High 0.70-1.30 [facility] Comment on above: Performed By: #### L [id number] #### [facility] ([facility]) [address] [place] [address] GLOMERULAR FILTRATION RATE ML/MIN/1.73 SQ M.PREDICTED 58.4 mL/min/1.73m*2 Low >60.0 [facility] Comment on above: Result Comment: [facility]???s estimated glomerular filtration rate (eGFR) will [...] individuals. Performed By: #### L [id number] #### [facility] [address] [place] [address] Glucose [Mass/Vol] 95 mg/dL Normal 70-100 [facility] Comment on above: Performed By: #### L [id number] #### [facility] ([facility]) [address] [place] [address] Potassium [Moles/Vol] 3.8 mmol/L Normal 3.5-5.1 [facility] Comment on above: Performed By: #### L [id number] #### [facility] ([facility]) [address] [place] [address] Protein [Mass/Vol] 7.3 g/dL Normal 6.0-8.3 [facility] Comment on above: Performed By: #### L [id number] #### [facility] ([facility]) [address] [place] [address] Sodium [Moles/Vol] 139 mmol/L Normal 136-145 [facility] Comment on above: Performed By: #### L [id number] #### [facility] ([facility]) [address] [place] [address] Urea nitrogen [Mass/Vol] 23 mg/dL Normal 7-25 [facility] Comment on above: Performed By: #### L [id number] #### [facility] ([facility]) [address] [place] [address] UREA NITROGEN/CREATININE (MASS RATIO) IN SER/PLAS 17.4 Normal [facility] Comment on above: Performed By: #### L [id number] #### [facility] ([facility]) [address] [place] [address] CT BRAIN PERFUSIONon 023 CT BRAIN PERFUSION [...] MRI brain recommended. Electronically signed: Damian Collier. [facility] CT HEAD WO IV CONTRASTon CT [...] intracranial abnormality. Electronically signed: Damian Collier. Normal [facility] CTA HEAD W AND WO IV [...] brain recommended. Electronically signed: Damian Collier. Normal [facility] CTA NECK W AND WO IV [...] MRI brain recommended. Electronically signed: Damian Collier. [facility] EDPROVon 03-05-2023 EDPROV HPI Chief Complaint Patient presents with Unable to speak Patient dropped off from clinic with no report - Aphasic patient - onset was while in clinic. Initial evaluation completed by Dr. Bender at 4:50 PM. Yoli Antunez Jr. is a 67 y/o male [...] MR HEAD ANGIO WO IV CONTRAST 07/09/2022 [facility] MR IMAGING MRA NECK WO IV CONTRAST 07/09/2022 MR NECK ANGIO WO IV CONTRAST 07/09/2022 [facility] MR IMAGING NECK SURGERY THYROIDECTOMY Family History [...] with standin (more content not included)... Normal [facility] EDPROV HPI Chief Complaint Patient presents with ??? Unable to speak Patient dropped off from clinic with no report - Aphasic patient - onset was while in clinic. Initial evaluation completed by Dr. Bender at 4:50 PM. Yoli Haley Harmony Isidro is a 67 y/o male presenting [...] no shortness of breath and no vomiting [place] Coma Scale Score: 15 Patient History Past [...] MR HEAD ANGIO WO IV CONTRAST 07/09/2022 [facility] MR IMAGING ??? MRA NECK WO IV CONTRAST 07/09/2022 MR NECK ANGIO WO IV CONTRAST 07/09/2022 [facility] MR IMAGING ??? NECK SURGERY ??? THYROIDECTOMY [...] (more content not included)... Invalid Interpretation Code [facility] Office Visiton 03-05-2023 Follow-up visit [id number] FoxFr freda schuler Jr. 1955 M Date Provider Department Center 03/05/2023 JACKIE HASTINGS [facility] CARD [facility] Family History Problem Relation Age of Onset Hypertension Mother Cancer Mother Stroke Mother Hypertension Father Aortic aneurysm Father Cancer Father Aortic aneurysm Paternal Grandfather Sudden Neg Hx Family Status - Relation Status Age at Mother Father Paternal Grandfather Neg Hx Level of Service:75480 IN OFFICE/OUTPATIENT ESTABLISHED MOD MDM 30-39 MIN Reason for Visit and Comments: Follow-up [642539] Normal [facility] POCT GLUCOSE METER UNSOLICIT ED RESULTSon 03-05-2023 Glucose [Mass/Vol] 96 mg/dL Normal 70-105 [facility] Comment on above: Order Comment: Waive d Testing in the ED is performed under the ED CLIA certificate #[id number]. Result Comment: vbei lfu Performed By: #### L [id number] ####[facility] ([facility])[address] [place] [address] PROTIME-INRon 03-05-2023 INR IN PPP BY COAGULATION ASSAY 0.98 Normal 0.90-1.10 [facility] Comment on above: Result Comment: ACCC P [...] 1995;108:231S-246S. Performed By: #### L [id number] #### [facility] ([employer]) [address] [place] [address] PROTHROMBIN TIME (PT) IN PPP BY COAGULATION ASSAY 13.0 Seconds Normal 12.3-14.8 [facility] Comment on above: Performed By: #### L [id number] #### [facility] ([facility]) [address] [place] [address] TROPONIN Ion 03-05-2023 Troponin I.cardiac [Mass/Vol] 0.00 ng/mL Normal 0.00-0.04 [facility] Comment on above: Performed By: #### L [id number] ####[facility] ([facility])[address] [place] [address] CNPNon 02-05-2023 CNPN Telephone (NIQ) YOLI ANTUNEZ ([id number]) 1955 M Date Time Provider Department 02/05/23 MARÍA PEARL During your visit today, we recorded the following information about you: Aydee Hunter 02/05/2023 12:07 PM Signed Scanned in results from [facility] for review Shivani Ambriz RN 02/05/2023 12:49 PM Signed Copper: YAMILA Carnes, RN Shivani Ambriz RN 02/05/2023 1:01 PM Signed María Pearl APRN.[employer] You 7 minutes ago (12:52 PM) This is a normal result. [place] YAMILA Carnes, RN Allergies As of Date: 02/05/2023 Noted Allergy Reaction PENICILLINS 09/12/2000 16 - Unknown TIKOSYN (DOFETILIDE) 07/26/2022 14 - Other: See Comments Comments: Aphasia, dizzy, muscle cramps VANCOMYCIN 07/26/2022 10 - Anaphylaxis Date Reviewed: 01/24/2023 Reviewed by: Peggy Bravo RN - Fully Assessed Reason for Visit: Results [95] Cmt: [facility] Prescriptions as of 02/05/2023 - benazepril [...] Status:Closed by SHIVANI AMBRIZ on 02/05/23 Normal [facility] CT ABDOMEN PELVIS W IV CONTR Adalgisa 02-01-2023 CT ABDOMEN PELVIS W IV CONTRAST Interpreted By: Renaldo Conrad, STUDY: CT ABDOMEN PELVIS W IV CONTRAST; 02/01/2023 2:11 pm INDICATION: Signs/Symptoms:worsening LLQ abdominal pain and watery diarrhea. COMPARISON: None. ACCESSION NUMBER(S): [id number] ORDERING CLINICIAN: YOSSI CHEN TECHNIQUE: CT of [...] Renaldo Conrad 02/01/2023 2:52 PM Dictation workstation: [id number] [facility] CT Abdomen and Pelvis W cont rast Candace 02-01-2023 Radiology Study observation (narrative) [facility] Work Phone: 1. No acute intra-ab dominal or pelvic pathology. 2. Uncomplicated colonic diverticulosis. 3. Trace hiatal hernia. 4. Scattered splenic calcific granulomas likely sequelae of chronic granulomatous infection. MACRO: None Signed by: Renaldo Conrad 02/01/2023 2:52 PM Dictation workstation: [id number]ODAL Interpreted By: Renaldo Palmer, STUDY: CT ABDOMEN PELVIS W IV CONTRAST; 02/01/2023 2:11 pm INDICATION: Signs/Symptoms:worsening LLQ abdominal pain and watery diarrhea. COMPARISON: None. ACCESSION NUMBER(S): [id number] ORDERING CLINICIAN: YOSSI CHEN TECHNIQUE: CT of [...] and watery diarrhea. COMPARISON: None. ACCESSION NUMBER(S): [id number] ORDERING CLINICIAN: YOSSI CHEN TECHNIQUE: CT of [...] Renaldo Conrad 02/01/2023 2:52 PM Dictation workstation: [id number] [facility] Work Phone: CT Abdomen and Pelvis W cont rast IVOrdered By: Renaldo Conrad on 02-01-2023 [facility] Work Phone: Gastrointestinal pathogens i dentifiedon [...] Rotavirus RNA Not Detected Normal Not Detected [facility] Comment on above: Performed By: #### 7 9390-1 #### RENÉ Hinojosa ([id number]) [facility] ([facility]) [address] [place] [address] Basic metabolic 2000 panelon 01-31-2023 Anion gap [Moles/Vol] 12 mmol/L Normal 10- [facility] Comment on above: Performed By: #### 2 4321-2 #### MAYELIN Hill ([id number]) [facility] [address] [place] [address] Calcium [Mass/Vol] 7.2 mg/dL Low 8.6-10.3 [facility] Comment on above: Performed By: #### 2 4321-2 #### MAYELIN Hill ([id number]) [facility] [address] [place] [address] Chloride [Moles/Vol] 106 mmol/L Normal 98-107 [facility] Comment on above: Performed By: #### 2 4321-2 #### MAYELIN Hill ([id number]) [facility] [address] [place] [id number] CO2 [Moles/Vol] 28 mmol/L Normal 21-32 [facility] [facility] Comment on above: Performed By: #### 2 4321-2 #### MAYELIN Hill ([id number]) [facility] [address] [place] [address] 87528 Creatinine [Mass/Vol] 1.65 mg/dL High 0.50-1.30 [facility] Comment on above: Performed By: #### 2 4321-2 #### MAYELIN Hill ([id number]) [facility] [address] [place] [address] 26854 GFR/1.73 sq M.predicted MDRD (S/P/Bld) [Vol rate/Area] 45 mL/min/1.73m*2 Low >60 [facility] Comment on above: Result Comment: Calc ulations of estimated GFR are performed using the 2020 CKD-EPI Study Refit equation without the race variable for the IDMS-Traceable creatinine methods. https://jasn.asnjournals.org/content/early/ASN.5048903 988 Performed By: #### 2 4321-2 #### MAYELIN Hill ([id number]) [facility] [address] [place] [address] 72427 Glucose [Mass/Vol] 83 mg/dL Normal 74-99 [facility] Comment on above: Performed By: #### 2 4321-2 #### MAYELIN Hill ([id number]) [facility] ([facility]) [address] [place] [address] 24064 Potassium [Moles/Vol] 4.3 mmol/L Normal 3.5-5.3 [facility] Comment on above: Performed By: #### 2 4321-2 #### MAYELIN Hill ([id number]) [facility] [address] [place] [address] 64335 Sodium [Moles/Vol] 142 mmol/L Normal 136-145 [facility] Comment on above: Performed By: #### 2 4321-2 #### MAYELIN Hill ([id number]) [facility] [address] [place] [address] 31854 Urea nitrogen [Mass/Vol] 25 mg/dL High 6-23 [facility] Comment on above: Performed By: #### 2 4321-2 #### MAYELIN Hill ([id number]) [facility] ([facility]) [address] [place] [address] 47554 Leydi 01-30-2023 EDUARDO Telephone (NIQ) YOLI ANTUNEZ ([id number]) 1955 M Date Time Provider Department 01/30/23 MARÍA PEARL During your visit today, we recorded the following information about you: ElsaAydee 01/30/2023 11:59 AM Signed Scanned in lab from [facility] for review Paul Burns RN 01/30/2023 1:53 PM Signed YAMILA Cage, RN, BA Paul Burns RN 01/30/2023 4:11 PM Signed María Pearl APRN.AIRFRAME AND POWERPLANT MECHANIC Lemuel 2 hours ago (1:58 PM) I sent [...] Encounter Status:Closed by PAUL BURNS on 01/30/23 [facility] Leydi 01-28-2023 EDUARDO Telephone (NIQ) YOLI ANTUNEZ ([id number]) 1955 M Date Time Provider Department 01/28/23 MARÍA PEARL During your visit today, we recorded the following information about you: Aydee Hunter 01/28/2023 9:37 AM Signed Scanned in results from [facility] for review Paul Burns RN 01/28/2023 9:58 AM Signed YAMILA Cage, RN, BA Paul Burns RN 01/28/2023 10:49 AM Signed María Pearl APRN.AIRFRAME AND POWERPLANT MECHANIC You 15 minutes ago (10:27 AM) Thank [...] Reason for Visit: Results [95] Cmt: [facility] Prescriptions as of 01/28/2023 - benazepril [...] Encounter Status:Closed by PAUL BURNS on 01/28/23 [facility] CNOVon 01-24-2023 CNOV Office Visit (SYNCMN ) YOLI ANTUNEZ ([id number]) 1955 M Date Time Provider Department 01/24/23 1:45 PM [facility] OPD NURSE SYNCMN During your visit today, we recorded the following information about you: Peggy Bravo RN 01/24/2023 3:23 PM Signed UNIVERSAL PROTOCOL / SAFETY CHECKLIST Procedure to be performed: Josephine for Syncope and Autonomic Disorders: TILT Sign [...] [R55] Orthostatic dizziness [R42] Order(s):SALINE LOCK DISCONTINUE [[id number]] Order #: [id number]: 1 INTERMITTENT PERIPHERAL DEVICE (PA,ND) [[id number]] Order #: [id number]: 1 Prescriptions as of 01/24/2023 - benazepril [...] Status:Closed by PEGGY BRAVO on 01/24/23 Normal [facility] ([id number]) 1955 M Date Time Provider Department 01/24/23 MARÍA PEARL During your visit today, we recorded the following information about you: Aydee Hunter 01/24/2023 2:27 PM Signed Scanned in medical records from [facility] for review Paul Burns RN 01/24/2023 4:54 PM Signed Awaiting other lab results. Will send MCM once all results are back. María Pearl APRN.AIRFRAME AND POWERPLANT MECHANIC You 2 hours ago (2:47 PM) Normal Vitamin B12. YAMILA Vivar, RN, BA Allergies As of Date: 01/24/2023 Noted Allergy Reaction PENICILLINS 09/12/2000 16 - Unknown TIKOSYN (DOFETILIDE) 07/26/2022 14 - Other: See Comments Comments: Aphasia, dizzy, muscle cramps VANCOMYCIN 07/26/2022 10 - Anaphylaxis Date Reviewed: 01/24/2023 Reviewed by: Peggy Bravo, RN - Fully Assessed Reason for Visit: Received Outside Medical Records [[id number]] Cmt: [facility] Prescriptions as of 02/04/2023 - aspirin, [...] intractable*05/31/2022 Encounter Status:Closed by [facility] (NENMMN ) YOLI ANTUNEZ ([id number]) 1955 M Date Time Provider Department 01/23/23 8:00 AM DAE MARÍA NENMMN During your visit today, we recorded the following information about you: Pulse Respiration Blood pressure Weight 70/minute 18/minute 114/78 112.5 kg Height 1.981 m Kristen Wagner BRADAmita 01/23/2023 10:15 AM Signed Answers submitted by [...] is this focusing problem? 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 As an stage electrician helper, he would be up and down and making frequent postural changes. 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 The lightheadedness and dizziness does NOT [...] with t (more content not included)... Normal [facility] Office Visiton 01-21-2023 Follow-up visit [id number] Fr freda Antunez Jr. 1955 M Date Provider Department Center 01/21/2023 1596-ELYSSA SOLANO Family History Problem Relation Age of Onset Hypertension Mother Cancer Mother Stroke Mother Hypertension Father Aortic aneurysm Father Cancer Father Aortic aneurysm Paternal Grandfather Sudden Neg Hx Family Status - Relation Status Age at Mother Father Paternal Grandfather Neg Hx Level of Service:40881 IN OFFICE/OUTPATIENT ESTABLISHED MOD MDM 30-39 MIN Normal [facility] CNOVon 12-31-2022 CNOV Office Visit (NHMNS2 ) YOLI ANTUNEZ ([id number]) 1955 M Date Time Provider Department 12/31/22 3:15 PM SARBJIT RICHARDSON NHMNS2 During your visit today, we recorded the following information about you: Pulse Blood pressure Weight Height 69/minute 123/77 114.8 kg 1.981 Sarbjit Dan, HUMAN PROJECTILE.AIRFRAME AND POWERPLANT MECHANIC 12/31/2022 5:04 PM Signed [facility] Follow up visit December 31, 2022 [...] He was evaluated by Cardiology at the [facility] for syncopal episodes. 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 put in in the front rock loader and helped him to the house [...] essentially unremarkable including troponins and ECG 09/11/2022 [facility]- Cardiology - Jackie Banks BUSINESS ADVISOR wrote: I copied and pasted my initial consult note from [facility] date 07/20/2022 for continuity of care: Hx paroxysmal atrial fibrillation. Undervent a watchman device implant at [facility] 03/06/2022. History of CAD. AAA not increased, [...] Last evaluated one month ago by neurology [facility]. Recent MRA MRV. HPI: Syncope began [...] hypertension, Lab (more content not included)... Normal [facility] Office Visiton 12-28-2022 Follow-up visit [id number] Fr freda Antunez Jr. 1955 M Date Provider Department Center 12/28/2022 3848-HAYDECHANTELLSTEPHANPatrick CARD [facility] Family History Problem Relation Age of Onset Hypertension Mother Cancer Mother Stroke Mother Hypertension Father Aortic aneurysm Father Cancer Father Aortic aneurysm Paternal Grandfather Sudden Neg Hx Family Status - Relation Status Age at Mother Father Paternal Grandfather Neg Hx Level of Service:48821 IN OFFICE/OUTPATIENT ESTABLISHED MOD MDM 30-39 MIN Normal [facility] Follow Up (General Surgery)o n 12-13-2022 Follow Up (General Surgery) Diagnoses/Problems H/O hiatal hernia (V12.79) (Z87.19) Patient Discussion/Summary followup as needed Provider Impressions Patient continues to do well. He was reassured; followup as needed Chief Complaint Patient is here for follow up History of Present Wgbfuio76-yqrp-nyf patient who underwent laparoscopic hiatal hernia repair [...] BY MOUTH TWICE DAILY WITH MEALS Pyridostigmine Kevin 60 MG Oral TabletTAKE 1 TABLET BY [...] Oral Tablet Vitamin D (Ergocalciferol) 1.25 MG (27555 UT) Oral CapsuleTAKE 1 CAPSULE BY MOUTH ONCE A WEEK Physical Exam abd: soft, non-distended, minimal tenderness over LUQ incision Signatures Electronically signed by : Yossi Chen MD; Dec 13 2022 10:59AM EST (Author) Normal [facility] Post Op (General Surgery)on 11-29-2022 Post [...] Muscle strain; ALBERT = N; Sent To: [facility] 8284 Patient Discussion/Summary Ice pack to left abdominal [...] here for post op History of Present Bzcivtc94-[id number] patient who underwent laparoscopic repair of paraesophageal [...] BY MOUTH TWICE DAILY WITH MEALS Pyridostigmine Kevin 60 MG Oral TabletTAKE 1 TABLET BY [...] Oral Tablet Vitamin D (Ergocalciferol) 1.25 MG (39865 UT) Oral CapsuleTAKE 1 CAPSULE BY MOUTH ONCE A WEEK Vitals Vital Signs Recorded: 29Nov2022 01:43PM Height6 ft 6 in Xtttil577 lb BMI Icpglweitb69.24 kg/m2 BSA Calculated2.49 Physical Exam abd: soft, non-distended, tenderness over LUQ trocar site; no hernia Signatures Electronically signed by : Yossi Chen MD (more content not included)... Normal [facility] Discharge [id number] 023 Discharge Profile2 Discharge Orders: Anticipated Discharge Date: Anticipated Discharge [id number] Hospital Providers: Provider RoleProvider Name ShaggyMacy webberaham Code Status: Code Status at Discharge: Full [...] up Call to Schedule in2 weeks Phone [phone] Commentscall to make appointment Other Clinician Instructions: Other Instructions: Other Clinician InstructionsAvoid bread, salad, steak and carbonated beverages for 2 wks Electronic Signatures: Sivan Costa (HUMAN PROJECTILE-AIRFRAME AND POWERPLANT MECHANIC) (Signed 22-Nov-2022 12:04) Authored: Discharge Orders, Provider FINAL REVIEW of Orders, Appointments, Gold Form - Talent Acquisition Specialist Summary Yossi Chen) (Signed 22-Nov-2022 12:26) Authored: Discharge Orders, Provider FINAL REVIEW of Orders, Appointments, Other Clinician Instructions Last Updated: 22-Nov-2022 12:26 by Yossi Chen) Normal [facility] Order Reconciliationon 11-22 Order Reconciliation Page 1 Discharge Reconciliation Document Reconciliation Type: Discharge requested on behalf of Yossi Chen (Physician) done by Yossi Chen) Discharge - Partial Reconciliation: 22-Nov-2022 12:05 by: Sivan Costa (HUMAN PROJECTILE-[facility]) Discharge - Reconciliation: 22-Nov-2022 12:31 by: Yossi Chen) [facility] DIS[facility]GE DateReconciliation Comment/ Additional Information [...] not required (more content not included)... Normal [facility] APTTon 11-21-2022 aPTT Coag (Bld) [Time] 34 s Normal 27 - 38 [facility] Comment on above: Result Comment: Note new reference range as of 10/09/2022 at 10:00am. Performed By: #### A PTT ####[facility] [place], [place] [id number] Activated Partial Thrombopla stin Timeon 11-21-2022 aPTT Coag (PPP) [Time] 34 s 27 - 38 [facility] ia 201 DO Work Phone: Comment on above: Note new reference andrew burton as of 10/09/2022 at 10:00am. Admission Risk Screen - Adul ton 11-21-2022 Admission Risk Screen - Adult Allergies: Allergies: Tikosyn: Other vancomycin: Rash penicillins: Unknown Patient Verification: New W ID Band Applied in my Departmentno Type of ID Patient is WearingW wristband, but not applied here Patient [facility] Patient Identity Verified Bypatient ID Band [...] AlertFor Ebola-like Symptoms: Isolate Patient and Notify Provider/Supply Technician For Contact: Notify Provider/Supply Technician Advance Directive: Advance Directive/DNRyes Advance Directive typeLiving Will Living Will AvailabilityLiving Will not available now Living Will [id number] [place] Fall Screen: History of falling (immediate or previous)no (0) Secondary Diagnosisyes (15) Intravenous Therapy/ Heparin/Saline Lockyes (20) Gait/Transferringnormal/bed rest/wheelchair (0) Ambulatory Aidsnone/bedrest/nurse assist (0) Mental Statusoriented [...] Communicatenone Learning Preferencesaudio Cultural Considerationsnone Developmental Considerationsnone Sikh Considerationsnone Learning Assessment (Other Learner): Other learner availableno Depression Screen: During the past month, have you often been bothered by feeling down, depressed or hopelessno During the past month, have you often had little interest or pleasure in doing thingsno Have you had any thoughts of harming anyone elseno [place] Suicide: Risk Screen Not Applicable/Able to Answerable [...] Was this within the past 3 monthsno [place] Suicide Riskmoderate Adult Nutrition Screen: Have you [...] Spiritual Screen: Are there any cultural, spiritual, latter day practices/values/needs that are important for us to knowno CAGE: Is this an injured patient at a Trauma Center ([facility]/[place]): no Vaccinations: Vaccination - Influenza Vaccination Screen: (more content not included)... Normal [facility] CBC AND DIFFERENTIALon 11-21 % AUTOMATED IMMATURE GRAN 0.3 % Normal 0.0 - 0.9 [facility] Comment on above: Result Comment: Nataliia ture Granulocyte Count (IG) includes promyelocytes, myelocytes and metamyelocytes but does not include bands. Percent differential counts (%) should be interpreted in the context of the absolute cell counts (cells/L). Performed By: #### C BCDF #### [address] [id number] Basophils (Bld) [#/Vol] 0.04 10*3/uL Normal 0.00 - 0.10 [facility] Comment on above: Performed By: #### C BCDF #### [address] [id number] Basophils/100 WBC (Bld) 0.6 % Normal 0.0 - 2.0 [facility] Comment on above: Performed By: #### C BCDF #### [address] [id number] Eosinophils (Bld) [#/Vol] 0.27 10*3/uL Normal 0.00 - 0.70 [facility] Comment on above: Performed By: #### C BCDF #### [address] [id number] Eosinophils/100 WBC (Bld) 3.9 % Normal 0.0 - 6.0 [facility] Comment on above: Performed By: #### C BCDF #### [address] [id number] Erythrocyte distribution width (RBC) [Ratio] 13.5 % Normal 11.5 - 14.5 [facility] Comment on above: Performed By: #### C BCDF #### [address] [id number] Hematocrit (Bld) [Volume fraction] 40.1 % Low 41.0 - 52.0 [facility] Comment on above: Performed By: #### C BCDF #### [address] [id number] Hemoglobin (Bld) [Mass/Vol] 13.3 g/dL Low 13.5 - 17.5 [facility] Comment on above: Performed By: #### C BCDF #### [address] [id number] Lymphocytes (Bld) [#/Vol] 1.54 10*3/uL Normal 1.20 - 4.80 [facility] Comment on above: Performed By: #### C BCDF #### [address] [id number] Lymphocytes/100 WBC (Bld) 22.3 % Normal 13.0 - 44.0 [facility] Comment on above: Performed By: #### C BCDF #### [address] [id number] MCHC (RBC) [Mass/Vol] 33.2 g/dL Normal 32.0 - 36.0 [facility] Comment on above: Performed By: #### C BCDF #### [address] [id number] MCV (RBC) [Entitic vol] 83 fL Normal 80 - 100 [facility] Comment on above: Performed By: #### C BCDF #### [address] [id number] Monocytes (Bld) [#/Vol] 0.71 10*3/uL Normal 0.10 - 1.00 [facility] Comment on above: Performed By: #### C BCDF #### [address] [id number] Monocytes/100 WBC (Bld) 10.3 % Normal 2.0 - 10.0 [facility] Comment on above: Performed By: #### C BCDF #### [address] [id number] Neutrophils (Bld) [#/Vol] 4.33 10*3/uL Normal 1.20 - 7.70 [facility] Comment on above: Performed By: #### C BCDF #### [address] [id number] Neutrophils/100 WBC (Bld) 62.6 % Normal 40.0 - 80.0 [facility] Comment on above: Performed By: #### C BCDF #### [address] [id number] Platelets (Bld) [#/Vol] 210 10*3/uL Normal 150 - 450 [facility] Comment on above: Performed By: #### C BCDF #### [address] [id number] RBC 4.84 x10E12/L Normal 4.50 - 5.90 [facility] Comment on above: Performed By: #### C BCDF #### [address] [id number] WBC (Bld) [#/Vol] 6.9 10*3/uL Normal 4.4 - 11.3 [facility] Comment on above: Performed By: #### C BCDF #### [address] [id number] COMPREHENSIVE PANELon 2022 Albumin [Mass/Vol] 4.4 g/dL Normal 3.4 - 5.[address] [facility] Comment on above: Performed By: #### C MP #### [address] [id number] ALP [Catalytic activity/Vol] 60 U/L Normal 33 - 136 [facility] Comment on above: Performed By: #### C MP #### [address] [id number] ALT [Catalytic activity/Vol] 14 U/L Normal 10 - 52 [facility] Comment on above: Result Comment: Kasandra ents treated with Sulfasalazine may generate falsely decreased results for ALT. Performed By: #### C MP #### [address] [id number] Anion gap [Moles/Vol] 14 mmol/L Normal 10 - 20 [facility] Comment on above: Performed By: #### C MP #### [address] [id number] AST [Catalytic activity/Vol] 13 U/L Normal 9 - 39 [facility] Comment on above: Performed By: #### C MP #### [address] [id number] Bilirubin [Mass/Vol] 0.3 mg/dL Normal 0.0 - 1.2 [facility] Comment on above: Performed By: #### C MP #### [address] [id number] Calcium [Mass/Vol] 7.1 mg/dL Low 8.6 - 10.3 [facility] Comment on above: Performed By: #### C MP #### [address] [id number] Chloride [Moles/Vol] 106 mmol/L Normal 98 - 107 [facility] Comment on above: Performed By: #### C MP #### [address] [id number] Creatinine [Mass/Vol] 1.38 mg/dL High 0.50 - 1.30 [facility] Comment on above: Performed By: #### C MP #### [address] [id number] GFR/1.73 sq M.predicted among non-blacks MDRD (S/P/Bld) [Vol rate/Area] 55 mL/min/{1.73_m2} Abnormal >90 [facility] Comment on above: Result Comment: CALC ULATIONS OF ESTIMATED GFR ARE PERFORMED USING THE 2020 CKD-EPI STUDY REFIT EQUATION WITHOUT THE RACE VARIABLE FOR THE IDMS-TRACEABLE CREATININE METHODS. https://jasn.asnjournals.org/content/early/ASN.6751379 988 Performed By: #### C MP #### [address] [id number] Glucose [Mass/Vol] 105 mg/dL High 74 - 99 [facility] Comment on above: Performed By: #### C MP #### [address] [id number] HCO3 (Bld) [Moles/Vol] 24 mmol/L Normal 21 - 32 [facility] Comment on above: Performed By: #### C MP #### [address] [id number] Potassium [Moles/Vol] 3.8 mmol/L Normal 3.5 - 5.3 [facility] Comment on above: Performed By: #### C MP #### [address] [id number] Protein [Mass/Vol] 7.2 g/dL Normal 6.4 - 8.2 [facility] Comment on above: Performed By: #### C MP #### [address] [id number] Sodium [Moles/Vol] 140 mmol/L Normal 136 - [address] [facility] Comment on above: Performed By: #### C MP #### [address] [id number] Urea nitrogen [Mass/Vol] 23 mg/dL Normal 6 - 23 [facility] Comment on above: Performed By: #### C MP #### [address] [id number] Clinical Event Note-Surgical first assistanton 11-21-2022 Clinical Event Note-orthodontic technician assistant Clinical Event: Clinical Event Note: TopicSurgical assistant professor of physics Details orthopedic physician assistant to dr Yossi Chen. Procedure: Laparoscopic repair of Type 3 paraesophageal hernia with Toupet wrap. Provider/Team Contact Info-Pager Fab Law PA-C [phone] Electronic Signatures: Kee Law (PAC) (Signed 21-Nov-2022 14:31) Authored: Clinical Event Note Last Updated: 21-Nov-2022 14:31 by Kee Law (PAC) Normal [facility] Complete Blood Count + Diffe johnathan 11-21-2022 Basophils/100 WBC (Bld) 0.6 % 0.0 - 2.0 [facility] 201 DO Work Phone: Erythrocyte distribution width (RBC) [Ratio] 13.5 % See Below [facility] 201 DO Work Phone: Comment on above: Reference Range: 11. 5 - 14.5 Hematocrit (Bld) [Volume fraction] 40.1 % below low threshold See Below [facility] 201 DO Work Phone: Comment on above: Reference Range: 41. 0 - 52.0 Hemoglobin (Bld) [Mass/Vol] 13.3 g/dL below low threshold See Below [facility] 201 DO Work Phone: Comment on above: Reference Range: 13. 5 - 17.5 Lymphocytes/100 WBC (Bld) 22.3 % See Below [facility] 201 DO Work Phone: Comment on above: Reference Range: 13. 0 - 44.0 MCHC (RBC) [Mass/Vol] 33.2 g/dL See Below [facility] 201 DO Work Phone: Comment on above: Reference Range: 32. 0 - 36.0 MCV (RBC) [Entitic vol] 83 fL 80 - 100 [facility] 201 DO Work Phone: Monocytes/100 WBC (Bld) 10.3 % 2.0 - 10.0 [facility] 201 DO Work Phone: Neutrophils/100 WBC (Bld) 62.6 % See Below [facility] ia 201 DO Work Phone: Comment on above: Reference Range: 40. 0 - 80.0 Platelets (Bld) [#/Vol] 210 10*3/uL 150 - 450 [facility] ia 201 DO Work Phone: RBC (Bld) [#/Vol] 4.84 {x10E12/L} See Below [facility] ia 201 DO Work Phone: Comment on above: Reference Range: 4.5 0 - 5.90 WBC (Bld) [#/Vol] 6.9 10*3/uL 4.4 - 11.3 [facility] ia 201 DO Work Phone: Complete Blood Count + Differential 0.04 {x10E9/L} See Below [facility] 201 DO Work Phone: Comment on above: Reference Range: 0.0 0 - 0.10 Complete Blood Count + Differential 0.27 {x10E9/L} See Below [facility] ia 201 DO Work Phone: Comment on above: Reference Range: 0.0 0 - 0.70 Complete Blood Count + Differential 0.71 {x10E9/L} See Below [facility] 201 DO Work Phone: Comment on above: Reference Range: 0.1 0 - 1.00 Complete Blood Count + Differential 1.54 {x10E9/L} See Below [facility] ia 201 DO Work Phone: Comment on above: Reference Range: 1.2 0 - 4.80 Complete Blood Count + Differential 4.33 {x10E9/L} See Below [facility] ia 201 DO Work Phone: Comment on above: Reference Range: 1.2 0 - 7.70 Complete Blood Count + Differential 3.9 % 0.0 - 6.0 -[facility] ia 201 DO Work Phone: Complete Blood Count + Differential 0.3 % 0.0 - 0.9 -[facility] 201 DO Work Phone: Comment on above: Immature Granulocyte Count (IG) includes promyelocytes, myelocytes and metamyelocytes but does not include bands. Percent differential counts (%) should be interpreted in the context of the absolute cell counts (cells/L). Laboratory - Chemistry and C hemistry - challengeon 11-21-2022 Albumin BCP dye [Mass/Vol] 4.4 g/dL 3.4 - 5.0 -[facility] 201 DO Work Phone: ALP [Catalytic activity/Vol] 60 U/L 33 - 136 -[facility] 201 DO Work Phone: ALT With P-5'-P [Catalytic activity/Vol] 14 U/L 10 - 52 -[facility] 201 DO Work Phone: Comment on above: Patients treated wit h Sulfasalazine may generate falsely decreased results for ALT. Anion gap [Moles/Vol] 14 mmol/L 10 - 20 -[facility] 201 DO Work Phone: AST With P-5'-P [Catalytic activity/Vol] 13 U/L 9 - 39 -[facility] 201 DO Work Phone: Bilirubin [Mass/Vol] 0.3 mg/dL 0.0 - 1.2 -E [facility] 201 DO Work Phone: Calcium [Mass/Vol] 7.1 mg/dL below low threshold 8.6 - 10.3 -[facility] ia 201 DO Work Phone: Chloride [Moles/Vol] 106 mmol/L 98 - 107 -E [facility] 201 DO Work Phone: CO2 [Moles/Vol] 24 mmol/L 21 - 32 [facility] 201 DO Work Phone: Creatinine [Mass/Vol] 1.38 mg/dL above high threshold See Below [facility] 201 DO Work Phone: Comment on above: Reference Range: 0.5 0 - 1.30 Glucose [Mass/Vol] 105 mg/dL above high threshold 74 - 99 [facility] 201 DO Work Phone: Potassium [Moles/Vol] 3.8 mmol/L 3.5 - 5.3 [facility] 201 DO Work Phone: Protein [Mass/Vol] 7.2 g/dL 6.4 - 8.2 [facility] 201 DO Work Phone: Sodium [Moles/Vol] 140 mmol/L 136 - 145 [facility] 201 DO Work Phone: Urea nitrogen [Mass/Vol] 23 mg/dL 6 - 23 [facility] 201 DO Work Phone: Laboratory - Coagulationon 0 11-21-2022 INR Coag (PPP) [Relative time] 1.0 {INR} 0.9 - 1.1 [facility] 201 DO Work Phone: PT Coag (PPP) [Time] 11.7 s 9.8 - 12.8 MIN [facility] 201 DO Work Phone: Comment on above: Note new reference r josephine as of 10/09/2022 at 10:00am. No Panel Informationon 11-21 55 {mL/min/1.73m2} Abnormal >90 [facility] 201 DO Work Phone: Comment on above: CALCULATIONS OF FLORENTIN MATED GFR ARE PERFORMED USING THE 2020 CKD-EPI STUDY REFIT EQUATION WITHOUT THE RACE VARIABLE FOR THE IDMS-TRACEABLE CREATININE METHODS.https://jasn.asnjournals.org/content/early/ASN .5128217456 -[facility] ia 201 DO Work Phone: PT/INRon 11-21-2022 PT Coag (PPP) [Time] 11.7 s Normal 9.8 - 12.8 [facility] Comment on above: Result Comment: Note new reference range as of 10/09/2022 at 10:00am. Performed By: #### P TINR ####[facility] [place], [place] [id number] PT, INR 1.0 Normal 0.9 - 1.1 [facility] Comment on above: Performed By: #### P TINR ####[facility] [place], [place] [id number] Patient Profile - Adult v2on 11-21-2022 Patient Profile - Adult v2 Profile: Initial Info: How to be AddressedFred(1) Spoken Language PreferredEnglish (1) Stated Reason for Admissionscheduled hernia repair Wants Family/Rep Notified of Admissionn/a; family present Notify PCPnotify PCP Informed of Patient Visiting Rightsyes Arrived FromOR Patient Belongingsremains with patient Patient Belongings Remaining with Patientclothing; cell phone/electronics Medications Brought to Hospitalno General Health: Blood Avoidance/Restrictionsnone( 1) Previous Transfusion Reactionnot applicable(1) Weight in kg113.7 kilogram(s) Weight in xci176.6 pound(s) Weight Methodstated Scale Typebed Height in cm197.9 centimeter(s) Height in feet6 feet Height in inches5.95 inch(es) Height Methodstated BMI (kg/m2)29.031 square meter [facility] Based Care: How would you like to [...] Symptoms/Conditions Managed at Homecardiovascular; genitourinary; respiratory Cardiovascular Symptoms/Conditionshyperten gallo Cardiovascular Managementmanaged Genitourinary Symptoms/Conditionsrenal disease Genitourinary Managementmanaged [...] Category, Unknown, Active Electronic Signatures: Triny Ha (RN) (Signed 21-Nov-2022 14:44) Authored: Initial Info, General Health, RSP Based Care, Substance, Health Mgmt, Relationship/Environ, Additional Information Last Updated: 21-Nov-2022 14:44 by Triny Ha (RN) References: 1. Data Referenced From Patient Profile - Preop v3 19-Nov-2022 11:56 Normal [facility] Surgical Pathology Depar tmenton 11-21-2022 [facility] Surgical Pathology Department Name YOLI ANTUNEZAmarjit ISIDRO Pathologist: KAITLYN LAW MD Date of Procedure: 11/21/2022 Date Received: 11/21/2022 Date Reported 12/03/2022 Submitting Physician: YOSSI CHEN MD Location: [facility] Copy To/Referring/Attending: RADHA BURRIS MD Other External # FINAL DIAGNOSIS A. HIATAL HERNIA SAC: -- BENIGN ADIPOSE TISSUE AND CONTAINED BENIGN LYMPH NODES. Electronically Signed Out By KAITLYN LAW MD/KAROP By the signature on this report, the individual or group listed as making the Final Interpretation/Diagnosis certifies that they have reviewed this case. Diagnostic interpretation performed at [facility] [address] [place] [address] Clinical History: Physician Contact Number: [phone] Fixative (A): Formalin Clinical Diagnosis History HIATAL HERNIA. Specimens Submitted As: A: HERNIA SAC Gross Description: Received in formalin, labeled with the patient's name and hospital number and hernia sac , are multiple segments of yellow fibroadipose soft tissue aggreagting to 8.0 x 5.0 x 2.5 cm. Areas of induration, nodularity, hemorrhage or necrosis are not seen. Loss Control Engineer sections are submitted in one cassette. LMP lmp/11/27/2022 [facility] Department of Pathology [address] [place] [address] Normal [facility] Comment on above: Performed By: #### [facility] #### [facility] Surgical Pathology Department [address] [id number] Patient Profile - Preop v3on 11-19-2022 Patient Profile - Preop v3 Patient Profile - Preop: Initial Info: Patient DemographicsName: YOLI ANTUNEZ Date: 1955 Address: [address] [place] [address], [id number] Date/Time Bywuma09-Wbn-4394 12:28 Primary Phone [phone] Instructions Givenappropriate clothing, bring glasses/contacts case, 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 responsible 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 (procedure may be cancelled if no after school driver), center location, insurance information, remove jewerly/piercings, time to arrive Prep Instructions Reviewedn/a Instructions/Prep CommentNPO after midnight - bring event recorder info/ID card day of procedure How to be AddressedFred Spoken Language PreferredEnglish Source of Informationpatient Stated Reason for Admissionhiatal hernia repair Primary Contact Name and Numberjames Smith [phone] Limitations on Visitors/Phone Callsnone Medications Brought to Hospitalno General Health: Weight in kg113.5 kilogram(s) Weight in guu455.2 pound(s) Weight Methodactual (measured) Scale Typestanding Height [...] recorder- right side of chest- checked at [facility] kidney stone watchman device cataract detached retina colonoscopy /endoscopy h/o ulcers repair- with clips Patient Reaction to Anesthesiastates aphasia after surgery for a few minutes after procedures - advised to speak to anesthesia prior to procedure Blood Avoidance/Restrictionsnone Previous Transfusion Reactionnot applicable Health Mgmt: Symptoms/Conditions Managed at Homecardiovascular; neurological; musculoskeletal; endocrine; genitourinary; gastrointestinal; HEENT (head, eyes, ears, nose, throat); peripheral/neurovascular; respiratory Cardiovascular Symptoms/Conditionsdysrhyth dhruv; hypertension Cardiovascular Management Strategiesmedication therapy; medical dir Cardiovascular Symptoms/Conditions Commentcardiac ablation for atrial fib/ watchman device/ Event recorder (asked to bring ID in day of procedure - Checked at [facility] office) Endocrine Symptoms/Conditionsthyroid disease Endocrine Management Strategiesmedication therapy Gastrointestinal Symptoms/Conditionsdiarrhea ; reflux/heartburn Gastrointestinal Management Strategiesmedication therapy Gastrointestinal Symptoms/Conditions Commenth/o ulcer/ hiatal hernia, bleeding ulcers - with clips in place Genitourinary Symptoms/Conditionsstones; renal disease Genitourinary Symptoms/Conditions Commentstates early stage 4 renal disease follows with nephrology/PCP; h/o stones, no current issue HEENT Symptoms/Conditions Commenth/o detached retina- no current vision issues / permanent bridge Musculoskeletal Symptoms/Conditionsosteoart hritis Musculoskeletal Symptoms/Conditions Commentstates general arthritis Neurological Management Strategiesmedication therapy Neurological Symptoms/Conditions Commenth/o TIA with no residual affect Peripheral Neurovascular Symptoms/Conditions Commentoccasional swelling in legs Respiratory Symptoms/Conditionssleep disordered breathing Respiratory Management StrategiesCPAP CPAP Settingsnot currently using Respiratory Symptoms/Conditions Commenth/o sleep apnea Barriers to Managing Healthnone Relationship/Environ: Lives Withspouse Living Arrangementshouse Resource/Environmental Concernsnone Anticipated [facility] Anticipated at Transitionnone Tobacco Use: Tobacco Useyes Tobacco Typecigarettes Number of Packs per Day2 Number of yrs15 Pack yrs30 Tobacco Commentquit smoking 1986 Pre-op Checklist: Arrival [id number] Arrival Time05:23 Procedure TypeLaparoscopic Hiatal Hernia repair with Toupet wrap possible feeding tube and upper endoscopy NPOyes Last Food Mmunba87-Wsi-2406 22:00 Last Clear Fluid Fypgrh27-Oey-0781 22:00 ID Band On Patientpatient ID (name), [...] Allergies, Ho (more content not included)... Normal [facility] CNPNon 11-16-2022 CNPN Telephone (NHMNS2) YOLI ANTUNEZ ([id number]) 1955 M Date Time Provider Department 11/16/22 SARBJIT RICHARDSON [facility] During your visit today, we recorded the following information about you: Jessica Scott 11/16/2022 5:56 PM Signed Received faxed report of medical records done at . Uploaded via [employer], will be available in [employer] for review shortly. Allergies As of Date: 11/16/2022 Noted Allergy Reaction PENICILLINS 09/12/2000 16 - Unknown TIKOSYN (DOFETILIDE) 07/26/2022 14 - Other: See Comments Comments: Aphasia, dizzy, muscle cramps VANCOMYCIN 07/26/2022 10 - Anaphylaxis Date Reviewed: 10/18/2022 Reviewed by: Michaela Polo, RN - Fully Assessed Reason for Visit: Received Outside Medical Records [[id number]] Cmt: Prescriptions as of 11/29/2022 - ergocalciferol [...] Status:Closed by JESSICA SCOTT on 11/29/22 Normal [facility] Initial Visit (General Surge ry)on 11-12-2022 Initial [...] gas bloat, inability to burp, blood clot, MO and stroke. All questions answered and he is willing to proceed. He will be on a full liquid diet for 3 days after surgery and then advance to a soft diet. Avoid bread [place] steak and carbonated beverage for 2 weeks. Chief Complaint Patient referred by Dr. Daily for a hiatal hernia consult. History of Present [age]bcbfng1 y/o male patient referred for symptomatic hiatal [...] Loop recorder (more content not included)... Normal [facility] Established Visit (Otolaryng ology)on 10-26-2022 Established [...] waking up feeling unrefreshed, excessive daytime fatigue. Talmage Sleepiness Scale Score is 16 /24. Fatigue [...] CPAP ( (more content not included)... Normal [facility] Office Visiton 10-19-2022 Follow-up visit [id number] Fr freda Antunez Jr. 1955 M Date Provider Department Center 10/19/2022 [facility] Family History Problem Relation Age of Onset Hypertension Mother Cancer Mother Stroke Mother Hypertension Father Aortic aneurysm Father Cancer Father Aortic aneurysm Paternal Grandfather Sudden Neg Hx Family Status - Relation Status Age at Mother Father Paternal Grandfather Neg Hx Level of Service:30818 IN OFFICE/OUTPATIENT ESTABLISHED MOD MDM 30-39 MIN Normal [facility] Order Reconciliationon 10-15 Order Reconciliation Page [...] 1.25 milligram(s) orally once a day Normal [facility] Patient Profile - Preop v3on 10-12-2022 Patient Profile - Preop v3 Patient Profile - Preop: Initial Info: Patient DemographicsName: YOLI ANTUNEZ Date: 1955 Address: [address] [place] [address] Primary Phone [phone] Instructions Giventime to arrive, Arrival time of 0930 for surgery time of 1100 How to be Addressedfrederick Spoken Language PreferredEnglish Stated Reason for Admissionsleep study Primary Contact Name and Numbersee facesheet Medications Brought to Hospitalno General Health: Weight in kg116.6 kilogram(s) Weight in smk343 pound(s) Height in feet6 feet Height in inches5.95 inch(es) Height in cm197.9 centimeter(s) BMI (kg/m2)29.771 square meter Patient or Family Member Reaction to Anesthesiapatient reaction Patient Reaction to Anesthesiaawakening delayed Blood Avoidance/Restrictionsnone Previous Transfusion Reactionnot applicable Health Mgmt: Symptoms/Conditions Managed at Homecardiovascular; endocrine Barriers to Managing Healthnone Relationship/Environ: Lives Withspouse Living Arrangementshouse Resource/Environmental Concernsnone Anticipated [facility] Anticipated at Transitionnone Tobacco Use: Tobacco Useno Pre-op Checklist: Arrival [id number] Arrival Time09:59 Procedure Typesleep study NPOyes Last Food Oknckj28-Cuq-2020 00:00 Last Clear Fluid Lozvff26-Wnm-0705 00:00 ID Band On Patientpatient ID (name), [...] Information Last Updated: 15-Oct-2022 10:00 by Letty Godfrey (CARLOS) Normal [facility] Electrocardiogram 12 Leadon 10-10-2022 Electrocardiogram 12 Lead Ventricular Rate 70 Atrial Rate 70 P-R Interval 194 QRS Duration 78 Q-T Interval 420 QTC Calculation(Bazett) 453 P Bannister 38 R Bannister 13 T Bannister 66 QRS Count 12 Q Onset 222 P Onset 125 P Offset 161 T Offset 432 QTC Fredericia 442 Diagnosis Class Normal Diagnosis Normal sinus rhythm Normal ECG No previous ECGs available Confirmed by Aliya Candelaria ([id number]) on 10/14/2022 8:34:16 PM Normal [facility] No Panel Informationon 10-10 [email or web address] 0/musescripts/museweb.dll?R etrieveTestByDateTime?[place] njMC=[id number]&Date= 023&Time=14%3a24%3a36%3a00& TestType=ECG&Site=10&Output Type=PDF&Ext=PDF [facility] Work Phone: [phone] Normal sinus rhythm [facility] Work Phone: Normal [facility] Work Phone: [phone] [facility] Work Phone: [phone] [facility] Work Phone: 161 1 [facility] Work Phone: [phone] 1 [facility] Work Phone: [phone] 1 [facility] Work Phone: 12 1 [facility] Work Phone: [phone] [facility] Work Phone: [phone] [facility] Work Phone: [phone] [facility] Work Phone: 453 1 [facility] Work Phone: [phone] 1 [facility] Work Phone: 78 1 [facility] Work Phone: 194 1 [facility] Work Phone: 70 1 [facility] Work Phone: [phone] Established Visit (Otolaryng [...] symptoms appear more central. Sees neurology at [facility] who suspects he may have autonomic dysfunction - F/u with [facility] neurology as scheduled 2) ADA, CPAP [...] telehealth visit. Dysphagia follow-up History of Present Jplqadv68 year old man with history of intermittnet [...] more in his throat. Seeing neurology at [facility] for his intermittent aphasia. Still awaiting [...] following interpretation. (more content not included)... Normal [facility] Established Visit (Otolaryng ology)on 09-24-2022 Established Visit [...] assist you through your ENT care at [facility]. Dr. Perrin is an ENT surgeon who specializes in voice, airway and swallowing issues. This means that she specializes in taking care of patients with complex voice, airway and swallowing problems. Dr. Perrin's office number is [phone]. Please use this number to contact her and her care team regardless of which office you use to access care. This number is the most direct way to communicate with all the members of the care team. Dr. Perrin?s community youth secretary answers the office phone from 9am-4pm Sat-Sat. Call [phone] and push 2. She can help you with scheduling of appointments, general questions and information. You may need to leave a message if she is helping another patient. In this case, someone from the team will call you back the same day if you leave your message before 3pm, or the next business morning. Dr. Perrin?s nurse and can be reached by calling [phone]. We make every effort to return phone calls the same day. If you are in need of urgent assistance after hours, please call [phone] and ask for ENT elevator constructor helper. Dr. Perrin works closely with speech therapists as they work together to help solve your issues with speech and swallowing. You may see a speech therapist during your appointment if Dr. Perrin feels this is needed. If you need to reach speech therapy to talk with a therapist or to schedule an appointment, please call [phone]. Others who may be included in your care are dieticians, social workers, audiologists, neurologists, and physical therapists. Dr. Perrin will provide these referrals as needed. Please let her know if you would like to request a specific referral. For your convenience, Dr. Perrin sees patients at different [facility] locations including the [facility] at [facility], and [facility] at the [facility]. While we try to make your appointments [...] discuss his care with Dr. Long at [facility] to understand current treatment plans 2. [...] with head turn or chin tuck, prior 2019 esophagram with slow clearing of the distal [...] Michaud. He (more content not included)... Normal [facility] Established Visit (Otolaryngology) No report was sent Normal [facility] No Panel Informationon 09-13 [facility] Work Phone: [email or web address]?={[email or web address] 487} -[facility] Work Phone: -[facility] Work Phone: [facility] Surgical Pathology Depar tmenton 09-13-2022 [facility] Surgical Pathology Department Name YOLI ANTUNEZ Tera ISIDRO Pathologist: LIZZ LINN MD Date of Procedure: [...] reviewed this case. Diagnostic interpretation performed at [facility] [address] [place] [address] Clinical History: R/O Esophagitis and metaplasia Specimens Submitted As: A: GE JUNCTION COLD FORCEPS Gross Description: Received in formalin, labeled with the patient's name and hospital number and A , are 2 fragments of martin, soft tissue aggregating to 0.5 x 0.2 x 0.2 cm. The specimen is submitted in toto in one cassette. [facility]/09/21/2022 [facility] Department of Pathology [address] [place] [address] Comment on above: Performed By: #### [facility] #### [facility] Surgical Pathology Department [address] [place] [address] Upper GI endoscopyon 023 Upper GI endoscopy PATIENTNAME Patient Name: Yoli Antunez EXAMDATE Procedure Date: 09/13/2022 3:41 PM PATIENTID PATIENTACCOUNTNUM PATIENTDOB Date of : 1955 ADMITTYPE Admit Type: Outpatient PATIENTROOM Site: [facility] Procedure Room 2 ETHNICITY Ethnicity: Not or RACE Race: White PROVDR Attending MD: Ruby Daily MD, [id number] ENDOPROCEDURENAME Procedure: Upper GI endoscopy INDICATION Indications: Dysphagia, cricopharyngeal web PRIMARYPROVIDER Providers: Ruby Daily MD (Doctor), Vale Mercado RN (Nurse), Sabina Atkins, Fire Safety Director EDREFPROVIDER Referring: Ruby Daily MD CURRENT_MEDS Medicines: [...] medications. CPT_CODES Procedure Code(s): --- Professional --- 73350, Moderate sedation services provided by the same physician or other qualified health director of managed care performing the diagnostic or therapeutic service that the sedation supports, requiring the presence of an independent trained observer to assist in the monitoring of the patient's level of consciousness and physiological status; initial 15 minutes of intraservice time, patient age 5 years or older [address], Unlisted procedure, esophagus ICD_CODES Diagnosis Code(s): --- Professional --- J38.3, O (more content not included)... Normal [facility] SURGICAL PATHOLOGY RESULTSon 09-06-2022 Pathology Report Name BROOKE ANTUNEZ GHASSAN Haley JR. Pathologist: [...] ABNORMALITIES. Electronically Signed Out By MAYELIN AVILEZ MD/[facility] By the signature on this report, the individual or group listed as making the Final Interpretation/Diagnosis certifies that they have reviewed this case. Diagnostic interpretation performed at [facility] [address] [facility] [address] Clinical History: A) R/O H.pylori B) R/O [...] in toto in one cassette. DMB dmb/09/04/2022 [facility] Department of Pathology [address] [place] [address] Established Visit (Otolaryng ology)on 09-04-2022 Established Visit [...] telehealth visit. Dysphagia follow-up History of Present Uutkdrj12 year old man with history of dysphagia [...] his care over the past two years 2/ to cardiac arrhythmia issues - afib, has [...] inflammatory na (more content not included)... [facility] Jairo 08-30-2022 Radiology Study observation (narrative) [facility] Work Phone: Beth Diego MD - 10/15/2022 Patient Name: Yoli Antunez Procedure Date: 08/30/2022 7:32 AM Date of : 1955 Admit Type: Outpatient Site: [facility] Procedure Room 5 Ethnicity: Not or Race: White Attending MD: ELISEO Williamson, [id number] Procedure: Upper GI endoscopy Indications: Dysphagia for 5 years to both liquids and solids Patient Profile: This is a 67 year old male. Refer to note in patient chart for documentation of history and physical. Providers: ELISEO Williamson (Doctor), Jaylen Lo RN (Nurse), Florentino De Dios, Fire Safety Director, Kristin Mcdaniels RN (Nurse) Referring: Radha Burris [...] specimen was done by the nurse and electrical electronics technician using the patient's name and medical record number. Estimated blood loss was minimal. A single 3 mm nodule was found at the gastroesophageal junction, 39 cm from the incisors. Biopsies were taken with a cold forceps for histology. Verification of patient identification for the specimen was done by the nurse and electrical electronics technician using the patient's name and medical [...] specimen was done by the nurse and electrical electronics technician using the patient's name and medical [...] right naris un (more content not included)... [facility] Work Phone: EGDOrdered By: Beth Diego on 08-30-2022 [facility] Work Phone: No Panel Informationon 08-30 [email or web address]?={[email or web address]} [facility] Work Phone: [facility] Work Phone: Name BROOKE ANTUNEZ JR. Pathologist: MAYELIN AVILEZ MD Date of Procedure: 08/30/2022 Date Rec [facility] Work Phone: Order Reconciliationon 08-30 Order Reconciliation [...] 1.25 milligram(s) orally once a day Normal [facility] Surgical Pathology Depar tmenton 08-30-2022 [facility] Surgical Pathology Department Name YOLI ANTUNEZ JR. [...] ABNORMALITIES. Electronically Signed Out By MAYELIN AVILEZ MD/[facility] By the signature on this report, the individual or group listed as making the Final Interpretation/Diagnosis certifies that they have reviewed this case. [facility] [facility] [address] [facility] [address] Clinical History: A) R/O H.pylori B) R/O [...] in toto in one cassette. DMB dmb/09/04/2022 [facility] Department of Pathology [id number] [place] [address] Normal [facility] Comment on above: Performed By: #### U HCS #### [facility] Surgical Pathology Department [address] [place] [address] Upper GI endoscopyon 023 Upper GI endoscopy PATIENTNAME Patient Name: Yoli Antunez EXAMDATE Procedure Date: 08/30/2022 7:32 AM PATIENTID PATIENTACCOUNTNUM PATIENTDOB Date of : 1955 ADMITTYPE Admit Type: Outpatient PATIENTROOM Site: [place] Procedure Room 5 ETHNICITY Ethnicity: Not or RACE Race: White PROVDR Attending MD: ELISEO Williamson, [id number] ENDOPROCEDURENAME Procedure: Upper GI endoscopy INDICATION Indications: Dysphagia for 5 years to both liquids and solids PTPROFILE Patient Profile: This is a 67 year old male. Refer to note in patient chart for documentation of history and physical. PRIMARYPROVIDER Providers: ELISEO Williamson (Doctor), Jaylen Lo RN (Nurse), Florentino De Dios, Fire Safety Director, Kristin Mcdaniels RN (Nurse) EDREFPROVIDER Referring: Radha Burris MD [facility] Provider Care Team: Ruby Daily MD [...] specimen was done by the nurse and electrical electronics technician using the patient's name and medical record number. Estimated blood loss was minimal. A single 3 mm nodule was found at the gastroesophageal junction, 39 cm from the incisors. Biopsies were taken with a cold forceps for histology. Verification of patient identification for the specimen was done by the nurse and electrical electronics technician using the patient's name and medical [...] specimen was done by the nurse and electrical electronics technician using the patient's name and medical [...] re (more content not included)... Normal [facility] Established Visit (Otolaryng ology)on 08-17-2022 Established Visit [...] waking up feeling unrefreshed, excessive daytime fatigue. [place] Sleepiness Scale Score is 16 /24. Fatigue [...] CPAP; however, (more content not included)... Normal [facility] Tobacco Screening.on 023 Adult depression screening assessment No MG-Otolaryn go [id number] Work Phone: Fall risk assessment a) No falls within the last year MG-Otolaryngo logy-[id number] Work Phone: Tobacco use status CPHS b) No MG-Otolaryngo logy-[id number] Work Phone: RESIDENTIAL PROPERTY TAX APPRAISER (Progress Note)on 2022 RESIDENTIAL PROPERTY TAX APPRAISER (Progress Note) Therapy Diagnosis Assessed Dysphagia, oropharyngeal [...] to doctors? appointments. Primary Language for learning: [place]. Insurance Insurance reviewed Visit number: 3 Onset Date: 2022 Medicare Certification Period: Beginnin2022 Endin2022 Subjective Living Environment: home Patient arrival: independent Patient alert and ready to participate in telehealth visit this date. 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 Patient will safety tolerate the [...] verbalized understanding and agreement: yes CPT Code 28345 Treatment of swallowing dysfunction and/or oral function for feeding Signatures Electronically signed by : Yoanna Quigley CCC-RESIDENTIAL PROPERTY TAX APPRAISER; Aug 13 2022 3:44PM EST (Author) Normal [facility] GI ESOPHAGRAMon 08-10-2022 GI ESOPHAGRAM Patient Name: YOLI ANTUNEZ STUDY: GI ESOPHAGRAM; ; 08/10/2022 1:49 pm INDICATION: assess motility, r/o achalasia, assess mass/lesions R13.12: Dysphagia, oropharyngeal phase. COMPARISON: None. ACCESSION NUMBER(S): [id number] ORDERING CLINICIAN: RUBY DAILY TECHNIQUE: Fluoroscopic guided single and double contrast barium esophagram. FINDINGS: Disintegrator view of the chest, abdomen shows loop [...] Electronically signed by: JAE SOUTH MD Normal [facility] Radiologyon 08-10-2022 XR Esophagus Views W contrast PO Normal MG-Otolaryngo logy[facility] Work Phone: Established Visit (Otolaryng ology)on 07-31-2022 Established Visit [...] a telehealth visit. Swallow History of Present [id number] year old man with history of dysphagia [...] 20 MG (more content not included)... Normal [facility] Tobacco Screening.on 023 Adult depression screening assessment No [facility]-Otolaryn go [employer] [employer] Work Phone: Fall risk assessment b) One or more fall s in the last year [facility]-Otolaryngo [facility] Phone: Tobacco use status CPHS b) No [facility]-Otolaryngo [employer] Work Phone: RESIDENTIAL PROPERTY TAX APPRAISER (Progress Note)on 2022 RESIDENTIAL PROPERTY TAX APPRAISER (Progress Note) No report was sent Normal [facility] RESIDENTIAL PROPERTY TAX APPRAISER (Progress Note) Therapy Diagnosis Assessed Dysphagia, oropharyngeal [...] to doctors? appointments. Primary Language for learning: [place]. Insurance Insurance reviewed Visit number: 2 Onset Date: 2022 Medicare Certification Period: Beginnin2022 Endin2022 Subjective Living Environment: home Patient arrival: independent Patient alert and ready to participate in telehealth visit this date. 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 COMPARISON: None. ACCESSION NUMBER(S): [id number] ORDERING CLINICIAN: RANJANA PERRIN TECHNIQUE: MBSS completed. Informed verbal consent obtained prior to completion of exam. Trials of thin, nectar thick, honey thick, puree, soft-solids, and regular solids given. Fluoroscopy time : 3 minutes, 2 seconds. RESIDENTIAL PROPERTY TAX APPRAISER: Osmel Lozano M.S., [facility]-RESIDENTIAL PROPERTY TAX APPRAISER Phone/Pager: Can be contacted via [employer] or SPEECH FINDINGS: Reason for referral: A [...] a home program 2-3 times per day. 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 RESIDENTIAL PROPERTY TAX APPRAISER impressions with severity rating: Patient presents with [...] nectar thi (more content not included)... Normal [facility] No Panel Informationon 07-18 Normal MG-Otolaryngo logy-[facility] Work Phone: Swallow Evaluation v2-Modifi ed Barium Swallow, SLPon 07-18-2022 Swallow Evaluation v2-Modified Barium Swallow, RESIDENTIAL PROPERTY TAX APPRAISER Rehab: Info: Time IN11:05 Time OUT11:55 Total Treatment [id number] Evaluation TypeModified Barium Swallow, RESIDENTIAL PROPERTY TAX APPRAISER Impression: Assessment (Swallow Eval)RESIDENTIAL PROPERTY TAX APPRAISER impressions with severity rating: [Patient presents with [...] of the EMR/AEMR Electronic Signatures: Osmel Lozano (RESIDENTIAL PROPERTY TAX APPRAISER) (Signed 18-Jul-2022 14:17) Authored: Info, Impression Last Updated: 18-Jul-2022 14:17 by Osmel Lozano (RESIDENTIAL PROPERTY TAX APPRAISER) Normal [facility] Established Visit (Otolaryng ology)on 07-17-2022 Established Visit [...] assist you through your ENT care at [facility]. Dr. Perrin is an ENT surgeon who specializes in voice, airway and swallowing issues. This means that she specializes in taking care of patients with complex voice, airway and swallowing problems. Dr. Perrin's office number is [phone]. Please use this number to contact her and her care team regardless of which office you use to access care. This number is the most direct way to communicate with all the members of the care team. Dr. Perrin?s community youth secretary answers the office phone from 9am-4pm Mon-Sat. Call [phone] and push [phone]. She can help you with scheduling of appointments, general questions and information. You may need to leave a message if she is helping another patient. In this case, someone from the team will call you back the same day if you leave your message before 3pm, or the next business morning. Dr. Perrin?s nurse and can be reached by calling [phone]. We make every effort to return phone calls the same day. If you are in need of urgent assistance after hours, please call [phone] and ask for ENT elevator constructor helper. Dr. Perrin works closely with speech therapists as they work together to help solve your issues with speech and swallowing. You may see a speech therapist during your appointment if Dr. Perrin feels this is needed. If you need to reach speech therapy to talk with a therapist or to schedule an appointment, please call [phone]. Others who may be included in your care are dieticians, social workers, audiologists, neurologists, and physical therapists. Dr. Perrin will provide these referrals as needed. Please let her know if you would like to request a specific referral. For your convenience, Dr. Perrin sees patients at different [facility] locations including the [facility] at [facility], and [facility] at the main campus of [facility]. While we try to make your appointments [...] goals. By signing my name below, I, Nish Salomonibe, attest that this documentation has been prepared [...] on Omeprazole (more content not included)... Normal [facility] Tobacco Screening.on 023 Adult depression screening assessment No MG-Otolaryn go [facility] 3090 Work Phone: Fall risk assessment b) One or more fall s in the last year MG-Otolaryngo [facility] 6247 Work Phone: Tobacco use status CPHS b) No MG-Otolaryngo logy-[facility] 4100 Work Phone: BNPon 06-04-2022 Natriuretic peptide B (Bld) [Mass/Vol] 182.0 pg/mL Normal <=900.0 [facility] Comment on above: Performed By: #### H STROPN #### [facility] [address] [place] [address] Dr. Kulwant Brennan CARDIAC MAYELIN ADMITon 023 CK [Catalytic activity/Vol] 86 U/L Normal 39-308 [facility] Comment on above: Performed By: #### L ACT #### [facility] [address] [place] [address] Dr. Kulwant Brennan CK.MB [Mass/Vol] 0.84 ng/mL Normal <=3.60 [facility] Comment on above: Performed By: #### L ACT #### [facility] [address] [place] [address] Dr. Kulwant Brennan HSTROP 4.6 pg/mL Normal 4.0-76.1 [facility] Comment on above: Result Comment: CUT- OFF POINTS HAVE BEEN ESTABLISHED BASED ON THE FOURTH UNIVERSAL DEFINITIONS OF MYOCARDIAL INFARCTION. THE UPPER REFERENCE LIMIT (URL) OF TROPONIN, DEFINED THE 99TH PERCENTILE OF cTnI DISTRIBUTION IN A REFERENCE POPULATION, HAS BEEN CONFIRMED THE DECISION THRESHOLD FOR MO DIAGNOSIS. Performed By: #### L ACT #### [facility] [address] [place] [address] Dr. Kulwant Brennan EFRAIN 52 ng/mL Normal 16-96 [facility] Comment on above: Performed By: #### L ACT #### [facility] [address] [address] [address] Kulwant Brennan CBC AUTO DIFFon 06-04-2022 BASO # 0.1 103/ul Normal 0.0-0.1 [facility] Comment on above: Performed By: #### L ACT #### [facility] [address] [place] [address] Dr. Kulwant Brenann Basophils/100 WBC (Bld) 0.5 % Normal 0.2-2.0 [facility] Comment on above: Performed By: #### L ACT #### [facility] [address] [address] [address] Kulwant Brennan EO # 0.2 103/ul Normal 0.0-0.7 [facility] Comment on above: Performed By: #### L ACT #### [facility] [address] [address] [address] Kulwant Brennan Eosinophils/100 WBC (Bld) 2.6 % Normal 0.9-7.0 [facility] Comment on above: Performed By: #### L ACT #### [facility] [address] [address] [address] Kulwant Brennan Erythrocyte distribution width (RBC) [Ratio] 15.0 % Normal 11.0-15.0 [facility] Comment on above: Performed By: #### L ACT #### [facility] [address] [place] [address] Dr. Kulwant Brennan Hematocrit (Bld) [Volume fraction] 42.3 % Normal 42.0-54.0 [facility] Comment on above: Performed By: #### L ACT #### [facility] [address] [place] [address] Dr. Kulwant Brennan Hemoglobin (Bld) [Mass/Vol] 14.0 g/dL Normal 14.0-18.0 [facility] Comment on above: Performed By: #### L ACT #### [facility] [address] [address] [address] Kulwant Brennan IG # 0.10 10e3/ul Critically high 0.00-0.03 [facility] Comment on above: Performed By: #### L ACT #### [facility] [address] [address] [address] Kulwant Brennan IG % 1.1 % Critically high 0.0-0.5 [facility] Comment on above: Performed By: #### L ACT #### [facility] [address] [address] [address] Kulwant Brennan LYMPH # 2.7 103/ul Normal 1.2-3.8 [facility] Comment on above: Performed By: #### L ACT #### [facility] [address] [place] [address] Dr. Kulwant Brennan Lymphocytes/100 WBC (Bld) 29.1 % Normal 20.5-60.0 [facility] Comment on above: Performed By: #### L ACT #### [facility] [address] [place] [address] Dr. Kulwant Brennan MANUAL DIFF REQ NO Normal [facility] Comment on above: Performed By: #### L ACT #### [facility] [address] [place] [address] Dr. Kulwant Brennan MCH (RBC) [Entitic mass] 27.0 pg Normal 25.9-34.0 [facility] Comment on above: Performed By: #### L ACT #### [facility] [address] [place] [address] Dr. Kulwant Brennan MCHC (RBC) [Mass/Vol] 33.1 g/dL Normal 29.9-35.2 [facility] Comment on above: Performed By: #### L ACT #### [facility] [address] [place] [address] Dr. Kulwant Brennan MCV (RBC) [Entitic vol] 81.5 fL Normal 80.0-94.0 [facility] Comment on above: Performed By: #### L ACT #### [facility] [address] [place] [address] Dr. Kulwant Brennan MONO # 1.0 103/ul Critically high 0.3-0.8 [facility] Comment on above: Performed By: #### L ACT #### [facility] [address] [place] [address] Dr. Kulwant Brennan Monocytes/100 WBC (Bld) 10.5 % Normal 1.7-12.0 [facility] Comment on above: Performed By: #### L ACT #### [facility] [address] [place] [address] Dr. Kulwant Brennan NEUT # 5.1 103/ul Normal 1.4-6.5 [facility] Comment on above: Performed By: #### L ACT #### [facility] [address] [address] [address] Kulwant Brennan Neutrophils/100 WBC (Bld) 56.2 % Normal 43.0-75.0 [facility] Comment on above: Performed By: #### L ACT #### [facility] [address] [address] [address] Kulwant Brennan Platelet mean volume (Bld) [Entitic vol] 10.0 fL Normal 9.5-13.5 [facility] Comment on above: Performed By: #### L ACT #### [facility] [address] [address] [address] Kulwant Brennan PLT 251 103/ul Normal 150-450 [facility] Comment on above: Performed By: #### L ACT #### [facility] [address] [place] [address] Dr. Kulwant Brennan RBC 5.19 106/ul Normal 4.70-6.10 [facility] Comment on above: Performed By: #### L ACT #### [facility] [address] [place] [address] Dr. Kulwant Brennan WBC 9.1 103/ul Normal 4.0-11.0 [facility] Comment on above: Performed By: #### L ACT #### [facility] [address] [place] [address] STROKE HEAD WOon [...] CONNER TANG Date: 2022-06-04 07:16 Normal [facility] Covid-19 PCR (CVDTBH)on 05-23 SARS-CoV-2 (COVID-19) RNA MIKE+probe Ql (Unsp spec) Not detected Normal NOT DETECTED [facility] Comment on above: Result Comment: When [...] for this test is supported by the [place] of Health and Human Service's declaration that [...] used). Performed By: #### H STROPN #### [facility] [address] [place] [address] Dr. Kulwant Brennan D-DIMERon 06-04-2022 D-DIMER 0.38 mg/L FEU Normal <=0.59 [facility] Comment on above: Performed By: #### D DIM #### [facility] [address] [place], [place] [address] Dr. Kulwant Brennan D-DIMER COMMENTS SEE BELOW Normal [facility] Comment on above: Result Comment: Incr eases [...] hospitalization. Performed By: #### D DIM #### [facility] [address] [place] [address] Dr. Kulwant Brennan PROF 14(COMP METB)on 023 Albumin [Mass/Vol] 4.1 g/dL Normal 3.4-5.[address] [facility] Comment on above: Performed By: #### H STROPN #### [facility] [address] [place] [address] Dr. Kulwant Brenann Albumin/Globulin [Mass ratio] 1.1 {ratio} Normal [facility] Comment on above: Performed By: #### H STROPN #### [facility] [address] [place] [address] Dr. Kulwant Brennan ALP [Catalytic activity/Vol] 78 U/L Normal 46-116 [facility] Comment on above: Performed By: #### H STROPN #### [facility] [address] [place] [address] Dr. Kulwant Brennan ALT [Catalytic activity/Vol] 26 U/L Normal 16-63 [facility] Comment on above: Performed By: #### H STROPN #### [facility] [address] [place] [address] Dr. Kulwant Brennan Anion gap [Moles/Vol] 16.3 mmol/L Normal [facility] Comment on above: Performed By: #### H STROPN #### [facility] [address] [place] [address] Dr. Kulwant Brennan AST [Catalytic activity/Vol] 18 U/L Normal 15-37 [facility] Comment on above: Performed By: #### H STROPN #### [facility] [address] [place] [address] Dr. Kulwant Brennan Bilirubin [Mass/Vol] 0.4 mg/dL Normal 0.2-1.0 [facility] Comment on above: Performed By: #### H STROPN #### [facility] [address] [place] [address] Dr. Kulwant Brennan Calcium [Mass/Vol] 8.4 mg/dL Critically low 8.5-10.1 Th e [facility] Comment on above: Performed By: #### H STROPN #### [facility] [address] [address] [address] Kulwant Brennan Chloride [Moles/Vol] 104 mmol/L Normal 98-107 [facility] Comment on above: Performed By: #### H STROPN #### [facility] [address] [address] [address] Kulwant Brennan CO2 [Moles/Vol] 24.8 mmol/L Normal 21.0-32.0 [facility] Comment on above: Performed By: #### H STROPN #### [facility] [address] [place] [address] Dr. Kulwant Brennan Creatinine [Mass/Vol] 1.52 mg/dL Critically high 0.70-1.30 [facility] Comment on above: Performed By: #### H STROPN #### [facility] [address] [place] [address] Dr. Kulwant Brennan EGFR-AF BRITISH 55 mL/min/1.73m2 Critically low >=60 [facility] Comment on above: Performed By: #### H STROPN #### [facility] [address] [place] [address] Dr. Kulwant Brennan EGFR-NON AF BRITISH 46 mL/min/1.73m2 Critically low >=60 [facility] Comment on above: Performed By: #### H STROPN #### [facility] [address] [place] [address] Dr. Kulwant Brennan Globulin (S) [Mass/Vol] 3.6 g/dL Normal [facility] Comment on above: Performed By: #### H STROPN #### [facility] [address] [place] [address] Dr. Kulwant Brennan Glucose [Mass/Vol] 102 mg/dL Normal 74-[address] [facility] Comment on above: Performed By: #### H STROPN #### [facility] [address] [place] [address] Dr. Kulwant Brennan Potassium [Moles/Vol] 4.1 mmol/L Normal 3.5-5.1 [facility] Comment on above: Performed By: #### H STROPN #### [facility] [address] [address] [address] Kulwant Brennan Protein [Mass/Vol] 7.7 g/dL Normal 6.4-8.2 [facility] Comment on above: Performed By: #### H STROPN #### [facility] [address] [address] [address] Kulwant Brennan Sodium [Moles/Vol] 141 mmol/L Normal 136-145 [facility] Comment on above: Performed By: #### H STROPN #### [facility] [address] [address] [address] Kulwant Brennan Urea nitrogen [Mass/Vol] 30.0 mg/dL Critically high 7.0-18.0 [facility] Comment on above: Performed By: #### H STROPN #### [facility] [address] [address] [address] Kulwant Brennan Urea nitrogen/Creatinine [Mass ratio] 19.7 mg/mg Normal [facility] Comment on above: Performed By: #### H STROPN #### [facility] [address] [address] [address] Kulwant Brennan PROTIMEon 06-04-2022 INR Coag (PPP) [Relative time] 0.99 {INR} Normal [facility] Comment on above: Performed By: #### P TT, PT ####[facility] [id number] [address]Dr. Kulwant Brennan INR GUIDELINES SEE BELOW Normal [facility] Comment on above: Result Comment: HAYDEE RED INR: 2.0 - 3.0 CONDITIONS NOT LISTED BELOW 2.5 - 3.5 FOR PROSTHETIC HEART VALVE REPLACEMENT 2.5 - 3.5 RECURRENT THROMBOSIS Performed By: #### P TT, PT ####[facility] [id number] [address]Dr. Kulwant Brennan PT Coag (PPP) [Time] 10.5 s Normal 9.0-11.6 [facility] Comment on above: Performed By: #### P TT, PT ####[facility] [id number] [id number] Kulwant Brennan PTTon 06-04-2022 aPTT Coag (Bld) [Time] 30.4 s Normal 22.3-36.2 [facility] Comment on above: Performed By: #### P TT, PT ####[facility] [id number] [id number][address] Kulwant Brennan TROPONIN, HIGH SENSITIVITYon 06-04-2022 HSTROP 4.3 pg/mL Normal 4.0-76.1 [facility] Comment on above: Result Comment: CUT- OFF POINTS HAVE BEEN ESTABLISHED BASED ON THE FOURTH UNIVERSAL DEFINITIONS OF MYOCARDIAL INFARCTION. THE UPPER REFERENCE LIMIT (URL) OF TROPONIN, DEFINED THE 99TH PERCENTILE OF cTnI DISTRIBUTION IN A REFERENCE POPULATION, HAS BEEN CONFIRMED THE DECISION THRESHOLD FOR MO DIAGNOSIS. Performed By: #### H STROPN #### [facility] [address] [address] [address] Kulwant Brennan HSTROP 4.5 pg/mL Normal 4.0-76.1 [facility] Comment on above: Result Comment: CUT- OFF POINTS HAVE BEEN ESTABLISHED BASED ON THE FOURTH UNIVERSAL DEFINITIONS OF MYOCARDIAL INFARCTION. THE UPPER REFERENCE LIMIT (URL) OF TROPONIN, DEFINED THE 99TH PERCENTILE OF cTnI DISTRIBUTION IN A REFERENCE POPULATION, HAS BEEN CONFIRMED THE DECISION THRESHOLD FOR MO DIAGNOSIS. Performed By: #### H STROPN ####[facility] [address] [id number]. Kulwant Brennan TSHon 06-04-2022 TSH 2.572 uIU/mL Normal 0.358-3.74 0 [facility] Comment on above: Performed By: #### L ACT #### [facility] [address] [address] [address] Kulwant Brennan XR CHEST 1 Von 06-04-2022 XR CHEST 1 V EXAM: XR CHEST 1 V 06/04/2022 3:44 AM EST OH001 CLINICAL STATEMENT: CHEST [...] FLORENTIN PALMA Date: 2022-06-04 04:40 Normal [facility] XR CHEST 2 Von 06-04-2022 XR CHEST [...] NICOLE CASAREZ Date: 2022-06-04 16:28 Normal [facility] XR Hand Complete Left*on XR Hand [...] by Chaz Moreau on 04/17/2022 1415 Normal [facility] Specialist ECHO LIMITED STUDYon 022 ECHO LIMITED STUDY Patient: YOLI ANTUNEZ Exam Date: 03/22/2022 : 1955 Gender:M Ordering : YANDEL SHEN [facility] Admission #: [id number] Family : Order #: [id number] CLICK HERE TO VIEW EXAM ECHOCARDIOGRAM REPORT [...] M.D. on 03/22/2022 at 20:31 Normal [facility] XR Abdomen Single View (KUB) *on [...] 0944 Normal [facility] Applications Scientist AMYLASEon 02-05-2022 Amylase [Catalytic activity/Vol] 58 U/L Normal 25-115 [facility] Comment on above: Performed By: #### L IPA, YAHIR, CMP #### [facility] [address] [address] [address] Kulwant Brennan CBC AUTO DIFFon 02-05-2022 BASO # 0.1 103/ul Normal 0.0-0.1 [facility] Comment on above: Performed By: #### L ACT #### [facility] [address] [address] [address] Kulwant Brennan Basophils/100 WBC (Bld) 0.8 % Normal 0.2-2.0 [facility] Comment on above: Performed By: #### L ACT #### [facility] [address] [address] [address] Kulwant Brennan EO # 0.2 103/ul Normal 0.0-0.7 [facility] Comment on above: Performed By: #### L ACT #### [facility] [address] [address] [address] Kulwant Brennan Eosinophils/100 WBC (Bld) 2.3 % Normal 0.9-7.0 [facility] Comment on above: Performed By: #### L ACT #### [facility] [address] [address] [address] Kulwant Brennan Erythrocyte distribution width (RBC) [Ratio] 14.6 % Normal 11.0-15.0 [facility] Comment on above: Performed By: #### L ACT #### [facility] [address] [place] [address] Dr. Kulwant Brennan Hematocrit (Bld) [Volume fraction] 39.9 % Critically low 42.0-54.0 [facility] Comment on above: Performed By: #### L ACT #### [facility] [address] [place] [address] Dr. Kulwant Brennan Hemoglobin (Bld) [Mass/Vol] 12.7 g/dL Critically low 14.0-18.0 [facility] Comment on above: Performed By: #### L ACT #### [facility] [address] [place] [address] Dr. Kulwant rBennan IG # 0.03 10e3/ul Normal 0.00-0.03 [facility] Comment on above: Performed By: #### L ACT #### [facility] [address] [place] [address] Dr. Kulwant Brennan IG % 0.5 % Normal 0.0-0.5 [facility] Comment on above: Performed By: #### L ACT #### [facility] [address] [place] [address] Dr. Kulwant Brennan LYMPH # 1.9 103/ul Normal 1.2-3.8 [facility] Comment on above: Performed By: #### L ACT #### [facility] [address] [place] [address] Dr. Kulwant Brennan Lymphocytes/100 WBC (Bld) 28.3 % Normal 20.5-60.0 [facility] Comment on above: Performed By: #### L ACT #### [facility] [address] [place] [address] Dr. Kulwant Brennan MANUAL DIFF REQ NO Normal [facility] Comment on above: Performed By: #### L ACT #### [facility] [address] [place] [address] Dr. Kulwant Brennan MCH (RBC) [Entitic mass] 27.4 pg Normal 25.9-34.0 [facility] Comment on above: Performed By: #### L ACT #### [facility] [address] [place] [address] Dr. Kulwant Brennan MCHC (RBC) [Mass/Vol] 31.8 g/dL Normal 29.9-35.2 [facility] Comment on above: Performed By: #### L ACT #### [facility] [address] [place] [address] Dr. Kulwant Brennan MCV (RBC) [Entitic vol] 86.0 fL Normal 80.0-94.0 [facility] Comment on above: Performed By: #### L ACT #### [facility] [address] [place] [address] Dr. Kulwant Brennan MONO # 0.7 103/ul Normal 0.3-0.8 [facility] Comment on above: Performed By: #### L ACT #### [facility] [address] [place] [address] Dr. Kulwant Brennan Monocytes/100 WBC (Bld) 10.4 % Normal 1.7-12.0 [facility] Comment on above: Performed By: #### L ACT #### [facility] [address] [place] [address] Dr. Kulwant Brennan NEUT # 3.8 103/ul Normal 1.4-6.5 [facility] Comment on above: Performed By: #### L ACT #### [facility] [address] [place] [address] Dr. Kulwant Brennan Neutrophils/100 WBC (Bld) 57.7 % Normal 43.0-75.0 [facility] Comment on above: Performed By: #### L ACT #### [facility] [address] [place] [address] Dr. Kulwant Brennan Platelet mean volume (Bld) [Entitic vol] 9.9 fL Normal 9.5-13.5 [facility] Comment on above: Performed By: #### L ACT #### [facility] [address] [place] [address] Dr. Kulwant Brennan PLT 224 103/ul Normal 150-450 [facility] Comment on above: Performed By: #### L ACT #### [facility] [address] [place] [address] Dr. Kulwant Brennan RBC 4.64 106/ul Critically low 4.70-6.10 [facility] Comment on above: Performed By: #### L ACT #### [facility] [address] [place] [address] Dr. Kulwant Brennan WBC 6.6 103/ul Normal 4.0-11.0 [facility] Comment on above: Performed By: #### L ACT #### [facility] [address] [place] [address] Dr. Kulwant Brennan LIPASEon 02-05-2022 Lipase [Catalytic activity/Vol] 174.0 U/L Normal 73.0-393.0 [facility] Comment on above: Performed By: #### L IPA YAHIR, CMP #### [facility] [address] [place] [address] Dr. Kulwant Brennan PROF 14(COMP METB)on 022 Albumin [Mass/Vol] 4.2 g/dL Normal 3.4-5.[address] [facility] Comment on above: Performed By: #### L IPA YAHIR, CMP #### [facility] [address] [place] [address] Dr. Kulwant Brennan Albumin/Globulin [Mass ratio] 1.0 {ratio} Normal [facility] Comment on above: Performed By: #### L IPA YAHIR, CMP #### [facility] [address] [place] [address] Dr. Kulwant Brennan ALP [Catalytic activity/Vol] 106 U/L Normal 46-116 [facility] Comment on above: Performed By: #### L IPA YAHIR, CMP #### [facility] [address] [place] [address] Dr. Kulwant Brennan ALT [Catalytic activity/Vol] 91 U/L Critically high 16-63 [facility] Comment on above: Performed By: #### L IPA YAHIR, CMP #### [facility] [address] [place] [address] Dr. Kulwant Brennan Anion gap [Moles/Vol] 13.8 mmol/L Normal [facility] Comment on above: Performed By: #### L IPA, YAHIR, CMP #### [facility] [address] [place] [address] Dr. Kulwant Brennan AST [Catalytic activity/Vol] 26 U/L Normal 15-37 [facility] Comment on above: Performed By: #### L IPA YAHIR, CMP #### [facility] [address] [place] [address] Dr. Kulwant Brennan Bilirubin [Mass/Vol] 0.5 mg/dL Normal 0.2-1.0 [facility] Comment on above: Performed By: #### L YAHIR NG, CMP #### [facility] [address] [place] [address] Dr. Kulwant Brennan Calcium [Mass/Vol] 8.3 mg/dL Critically low 8.5-10.1 [facility] Comment on above: Performed By: #### L YAHIR NG, CMP #### [facility] [address] [place] [address] Dr. Kulwant Brennan Chloride [Moles/Vol] 103 mmol/L Normal 98-107 [facility] Comment on above: Performed By: #### L YAHIR NG, CMP #### [facility] [address] [place] [address] Dr. Kulwant Brennan CO2 [Moles/Vol] 26.5 mmol/L Normal 21.0-32.0 [facility] Comment on above: Performed By: #### L YAHIR NG, CMP #### [facility] [address] [place] [address] Dr. Kulwant Brennan Creatinine [Mass/Vol] 1.37 mg/dL Critically high 0.70-1.30 [facility] Comment on above: Performed By: #### L YAHIR NG, CMP #### [facility] [address] [place] [address] Dr. Kulwant Brennan EGFR-AF BRITISH >60 Normal >=60 [facility] Comment on above: Performed By: #### L YAHIR NG, CMP #### [facility] [address] [place] [address] Dr. Kulwant Brennan EGFR-NON AF BRITISH 52 mL/min/1.73m2 Critically low >=60 [facility] Comment on above: Performed By: #### L YAHIR NG, CMP #### [facility] [address] [place] [address] Dr. Kulwant Brennan Globulin (S) [Mass/Vol] 4.1 g/dL Normal [facility] Comment on above: Performed By: #### L YAHIR NG, CMP #### [facility] [address] [address] [address] Kulwant Brennan Glucose [Mass/Vol] 96 mg/dL Normal 74-[address] [facility] Comment on above: Performed By: #### L IPA YAHIR, CMP #### [facility] [address] [address] [address] Kulwant Brennan Potassium [Moles/Vol] 4.3 mmol/L Normal 3.5-5.1 [facility] Comment on above: Performed By: #### L BERENICE YAHIR, CMP #### [facility] [address] [place] [address] Dr. Kulwant Brennan Protein [Mass/Vol] 8.3 g/dL Critically high 6.4-8.2 [facility] Comment on above: Performed By: #### L YAHIR NG, CMP #### [facility] [address] [place] [address] Dr. Kulwant Brennan Sodium [Moles/Vol] 139 mmol/L Normal 136-[address] [facility] Comment on above: Performed By: #### L BERENICE YAHIR, CMP #### [facility] [address] [address] [address] Kulwant Brennan Urea nitrogen [Mass/Vol] 27.0 mg/dL Critically high 7.0-18.0 [facility] Comment on above: Performed By: #### L YAHRI NG, CMP #### [facility] [address] [place] [address] Dr. Kulwant Brennan Urea nitrogen/Creatinine [Mass ratio] 19.7 mg/mg Normal [facility] Comment on above: Performed By: #### L YAHIR NG, CMP #### [facility] [address] [place] [address] Dr. Kulwant Brennan CBC AUTO DIFFon 01-09-2022 BASO # 0.1 103/ul Normal 0.0-0.1 [facility] Comment on above: Performed By: #### H STROPN #### [facility] [address] [address] [address] Kulwant Brennan Basophils/100 WBC (Bld) 0.5 % Normal 0.2-2.0 [facility] Comment on above: Performed By: #### H STROPN #### [facility] [address] [place] [address] Dr. Kulwant Brennan EO # 0.2 103/ul Normal 0.0-0.7 [facility] Comment on above: Performed By: #### H STROPN #### [facility] [address] [place] [address] Dr. Kulwant Brennan Eosinophils/100 WBC (Bld) 2.3 % Normal 0.9-7.0 [facility] Comment on above: Performed By: #### H STROPN #### [facility] [address] [place] [address] Dr. Kulwant Brennan Erythrocyte distribution width (RBC) [Ratio] 14.6 % Normal 11.0-15.0 [facility] Comment on above: Performed By: #### H STROPN #### [facility] [address] [place] [address] Dr. Kulwant Brennan Hematocrit (Bld) [Volume fraction] 35.8 % Critically low 42.0-54.0 [facility] Comment on above: Performed By: #### H STROPN #### [facility] [address] [place] [address] Dr. Kulwant Brennan Hemoglobin (Bld) [Mass/Vol] 11.4 g/dL Critically low 14.0-18.0 [facility] Comment on above: Performed By: #### H STROPN #### [facility] [address] [place] [address] Dr. Kulwant Brennan IG # 0.33 10e3/ul Critically high 0.00-0.03 [facility] Comment on above: Performed By: #### H STROPN #### [facility] [address] [place] [address] Dr. Kulwant Brennan IG % 3.2 % Critically high 0.0-0.5 [facility] Comment on above: Performed By: #### H STROPN #### [facility] [address] [place] [address] Dr. Kulwant Brennan LYMPH # 1.9 103/ul Normal 1.2-3.8 [facility] Comment on above: Performed By: #### H STROPN #### [facility] [address] [place] [address] Dr. Kulwant Brennan Lymphocytes/100 WBC (Bld) 18.3 % Critically low 20.5-60.0 [facility] Comment on above: Performed By: #### H STROPN #### [facility] [address] [place] [address] Dr. Kulwant Brennan MANUAL DIFF REQ NO Normal [facility] Comment on above: Performed By: #### H STROPN #### [facility] [address] [place] [address] Dr. Kulwant Brennan MCH (RBC) [Entitic mass] 26.8 pg Normal 25.9-34.0 [facility] Comment on above: Performed By: #### H STROPN #### [facility] [address] [place] [address] Dr. Kulwant Brennan MCHC (RBC) [Mass/Vol] 31.8 g/dL Normal 29.9-35.2 [facility] Comment on above: Performed By: #### H STROPN #### [facility] [address] [place] [address] Dr. Kulwant Brennan MCV (RBC) [Entitic vol] 84.0 fL Normal 80.0-94.0 [facility] Comment on above: Performed By: #### H STROPN #### [facility] [address] [place] [address] Dr. Kulwant Brennan MONO # 0.9 103/ul Critically high 0.3-0.8 [facility] Comment on above: Performed By: #### H STROPN #### [facility] [address] [place] [address] Dr. Kulwant Brennan Monocytes/100 WBC (Bld) 9.2 % Normal 1.7-12.0 [facility] Comment on above: Performed By: #### H STROPN #### [facility] [address] [place] [address] Dr. Kulwant Brennan NEUT # 6.8 103/ul Critically high 1.4-6.5 [facility] Comment on above: Performed By: #### H STROPN #### [facility] [address] [address] [address] Kulwant Brennan Neutrophils/100 WBC (Bld) 66.5 % Normal 43.0-75.0 [facility] Comment on above: Performed By: #### H STROPN #### [facility] [address] [address] [address] Kulwant Brennan Platelet mean volume (Bld) [Entitic vol] 10.5 fL Normal 9.5-13.5 [facility] Comment on above: Performed By: #### H STROPN #### [facility] [address] [address] [address] Kulwant Brennan PLT 357 103/ul Normal 150-450 [facility] Comment on above: Performed By: #### H DEBRAPN #### [facility] [address] [address] [address] Kulwant Brennan RBC 4.26 106/ul Critically low 4.70-6.10 [facility] Comment on above: Performed By: #### H STROPN #### [facility] [address] [address] [address] Kulwant Brennan WBC 10.2 103/ul Normal 4.0-11.0 [facility] Comment on above: Performed By: #### H STROPN #### [facility] [address] [address] [address] Kulwant Brennan PROF 14(COMP METB)on 022 Albumin [Mass/Vol] 3.3 g/dL Critically low 3.4-5.0 [facility] Comment on above: Performed By: #### T RAJEEV, CMP ####[facility] [address] [address]Dr. Kulwant Brennan Albumin/Globulin [Mass ratio] 0.8 {ratio} Normal [facility] Comment on above: Performed By: #### T RAJEEV, CMP ####[facility] [address] [address]Dr. Kulwant Brennan ALP [Catalytic activity/Vol] 151 U/L Critically high 46-116 [facility] Comment on above: Performed By: #### T RAJEEV, CMP ####[facility] [address] [place], [place] [address]Dr. Kulwant Brennan ALT [Catalytic activity/Vol] 118 U/L Critically high 16-63 [facility] Comment on above: Performed By: #### T RAJEEV, CMP ####[facility] [address] [place], [place] [address]Dr. Kulwant Brennan Anion gap [Moles/Vol] 12.3 mmol/L Normal [facility] Comment on above: Performed By: #### T RAJEEV, CMP ####[facility] [address] [place], [place] [address]Dr. Kulwant Brennan AST [Catalytic activity/Vol] 65 U/L Critically high 15-37 [facility] Comment on above: Performed By: #### T RAJEEV, CMP ####[facility] [address] [place], [place] [address]Dr. Kulwant Brennan Bilirubin [Mass/Vol] 0.5 mg/dL Normal 0.2-1.0 [facility] Comment on above: Performed By: #### T RAJEEV, CMP ####[facility] [address] [place], [place] [address]Dr. Kulwant Brennan Calcium [Mass/Vol] 5.3 mg/dL Critically low 8.5-10.1 [facility] Comment on above: Performed By: #### T RAJEEV, CMP ####[facility] [address] [place], [place] [address]Dr. Kulwant Brennan Chloride [Moles/Vol] 104 mmol/L Normal 98-107 [facility] Comment on above: Performed By: #### T RAJEEV, CMP ####[facility] [address] [place], [place] [address]Dr. Alanaselvin Brennan CO2 [Moles/Vol] 26.7 mmol/L Normal 21.0-32.0 [facility] Comment on above: Performed By: #### T RAJEEV, CMP ####[facility] [address] [id number]. Kulwant Brennan Creatinine [Mass/Vol] 2.08 mg/dL Critically high 0.70-1.30 [facility] Comment on above: Performed By: #### T SH, CMP ####[facility] [address] [place], [place] [address]Dr. Kulwant Brennan EGFR-AF BRITISH 39 mL/min/1.73m2 Critically low >=60 [facility] Comment on above: Performed By: #### T SH, CMP ####[facility] [address] [place], [place] [address]Dr. Kulwant Brennan EGFR-NON AF BRITISH 32 mL/min/1.73m2 Critically low >=60 [facility] Comment on above: Performed By: #### T SH, CMP ####[facility] [address] [place], [place] [address]Dr. Kulwant Brennan Globulin (S) [Mass/Vol] 4.1 g/dL Normal [facility] Comment on above: Performed By: #### T RAJEEV, CMP ####[facility] [address] [place], [place] [address]Dr. Kulwant Brennan Glucose [Mass/Vol] 89 mg/dL Normal 74-106 [facility] Comment on above: Performed By: #### T SH, CMP ####[facility] [address] [place], [place] [address]Dr. Kulwant Brennan Potassium [Moles/Vol] 4.0 mmol/L Normal 3.5-5.1 [facility] Comment on above: Performed By: #### T SH, CMP ####[facility] [address] [place], [place] [address]Dr. Kulwant Brennan Protein [Mass/Vol] 7.4 g/dL Normal 6.4-8.2 [facility] Comment on above: Performed By: #### T SH, CMP ####[facility] [address] [place], [place] [address]Dr. Kulwant Brennan Sodium [Moles/Vol] 139 mmol/L Normal 136-145 [facility] Comment on above: Performed By: #### T SH, CMP ####[facility] [address] [place], [place] [address]Yh. Kulwant Brennan Urea nitrogen [Mass/Vol] 28.0 mg/dL Critically high 7.0-18.0 [facility] Comment on above: Performed By: #### T SH, CMP ####[facility] [address] [place], [place] [address]Ai. Kulwant Brennan Urea nitrogen/Creatinine [Mass ratio] 13.5 mg/mg Normal [facility] Comment on above: Performed By: #### T SH, CMP ####[facility] [address] [place], [place] [address]Ur. Kulwant Brennan TSHon 01-09-2022 TSH 20.234 uIU/mL Critically high 0.358-3.74 0 [facility] Comment on above: Performed By: #### T SH, CMP ####[facility] [address] [address]Dr. Kulwant Brennan Cult, Bloodon 01-06-2022 Cult, Blood Specimen Description .BLOOD Special Requests RT AC 6ML Culture NO GROWTH 5 DAYS Report Status FINAL 01/06/2022 [facility] Comment on above: Performed By: #### U RNA, URTPRT, UMICAO, UEOS, UA #### [facility] [employer] [place] [id number] Events Associate: Ronn Arias MD Cult,Bloodon 01-06-2022 Cult,Blood Specimen Description .BLOOD Special Requests LT HAND 6ML Culture NO GROWTH 5 DAYS Report Status FINAL 01/06/2022 [facility] Comment on above: Performed By: #### U RNA, URTPRT, UMICAO, UEOS, UA #### [facility] [employer] [address] [id number] Events Associate: Ronn Arias MD KYLE SCREEN WITH REFLEXon Anti ds DNA 5.8 [facility] Comment on above: Reference Range: <10.0 Negative 10.0-15.0 Equivocal >15.0 Positive ARJUN Antibodies Screen 0.3 U/mL NINF - 0.7 U/mL [facility] Comment on above: Reference Range: <0.7 Negative 0.7-1.0 Equivocal >1.0 Positive ARJUN Screen includes U1RNP,RNP70,Sm,Ro(SS-A),La(SS-B),CENP,Scl-70,Pippa-1 Nuclear Ab IF (S) [Titer] Negative NEGATIVE [facility] KYLE Screen w/reflexon 2021 KYLE Screen Negative Normal NEG [facility] Comment on above: Performed By: #### U RNA, URTPRT, UMICAO, UEOS, UA #### [employer] [address] [place] [id number] Events Associate: Ronn Arias MD Anti-dsDNA 5.8 IU/mL Normal <10.0 [facility] Comment on above: Result Comment: Reference Range: <10.0 Negative 10.0-15.0 Equivocal >15.0 Positive Performed By: #### U RNA, URTPRT, UMICAO, UEOS, UA #### [employer] [address] [place] [id number] Events Associate: Ronn Arias MD ARJUN Screen 0.3 U/mL Normal <0.7 [facility] Comment on above: Result Comment: Reference Range: <0.7 Negative 0.7-1.0 Equivocal >1.0 Positive ARJUN Screen includes U1RNP,RNP70,Sm,Ro(SS-A),La(SS-B),CENP,Scl-70,Pippa-1 Performed By: #### U RNA, URTPRT, UMICAO, UEOS, UA #### [employer] [address] [place] [address] Events Associate: Ronn Arias MD Basic Metabolic Panelon 12-21 Anion gap [Moles/Vol] 14 mmol/L 9 - 17 mmol/L [facility] Calcium [Mass/Vol] 6.4 mg/dL Low 8.6 - 10. 4 mg/dL [facility] Chloride [Moles/Vol] 108 mmol/L High 98 - 10 7 mmol/L [facility] [employer] CO2 [Moles/Vol] 25 mmol/L 20 - 31 mmol/L [facility] Creatinine [Mass/Vol] 2.5 mg/dL High 0.7 - 1.2 mg/dL [facility] GFR 31 mL/min Low 60 - PI NF mL/min [facility] GFR Non- 26 mL/min Low 60 - PINF mL/min [facility] [employer] GFR/1.73 sq M.predicted MDRD (S/P/Bld) [Vol rate/Area] [facility] Comment on above: Average GFR for 60-6 9 years old: 85 mL/min/1.73sq m Chronic Kidney Disease: <60 mL/min/1.73sq m Kidney failure: <15 mL/min/1.73sq m eGFR calculated using average adult body mass. Additional eGFR calculator available at: http://www.[employer]/Casmul_crcl_2012.htm Glucose [Mass/Vol] 99 mg/dL 70 - 99 mg/dL [facility] Interpretation and review of laboratory results Abnormal [facility] Potassium [Moles/Vol] 4.6 mmol/L 3.7 - 5.3 mmol/L [facility] Sodium [Moles/Vol] 147 mmol/L High 135 - 144 mmol/L [facility] Urea nitrogen (BldV) [Mass/Vol] 40 mg/dL High 8 - 23 mg/dL [facility] Basic Metabolic Profon 01-05 (cont.) Normal [facility] Comment on above: Result Comment: Aver age GFR for 60-69 years old: 85 mL/min/1.73sq m Chronic Kidney Disease: <60 mL/min/1.73sq m Kidney failure: <15 mL/min/1.73sq m eGFR calculated using average adult body mass. Additional eGFR calculator available at: http://www.[employer]/multiple_crcl_2012.htm Performed By: #### U RNA, URTPRT, UMICAO, UEOS, UA #### [facility] [employer] [address] [place] [address] Events Associate: Ronn Arias MD Anion gap [Moles/Vol] 14 mmol/L Normal 9-17 [facility] Comment on above: Performed By: #### U RNA, URTPRT, UMICAO, UEOS, UA #### [address] [address] Events Associate: Ronn Arias MD Calcium [Mass/Vol] 6.4 mg/dL Low 8.6-10.4 [facility] Comment on above: Performed By: #### U RNA, URTPRT, UMICAO, UEOS, UA #### [facility] [employer] [address] [place] [address] Events Associate: Ronn Arias MD Chloride [Moles/Vol] 108 mmol/L High 98-107 [facility] Comment on above: Performed By: #### U RNA, URTPRT, UMICAO, UEOS, UA #### [address] [address] Events Associate: Ronn Arias MD CO2 [Moles/Vol] 25 mmol/L Normal 20-31 [facility] Comment on above: Performed By: #### U RNA, URTPRT, UMICAO, UEOS, UA #### [facility] [employer] [address] [place] [address] Events Associate: Ronn Arias MD Creatinine [Mass/Vol] 2.50 mg/dL High 0.70-1.20 [facility] Comment on above: Performed By: #### U RNA, URTPRT, UMICAO, UEOS, UA #### [facility] [employer] [address] [place] [address] Events Associate: Ronn Arias MD GFR, Amer 31 mL/min Low >60 [facility] Comment on above: Performed By: #### U RNA, URTPRT, UMICAO, UEOS, UA #### [facility] [address] [place] [address] Events Associate: Ronn Arias MD GFR,non Amer 26 mL/min Low >60 [facility] Comment on above: Performed By: #### U RNA, URTPRT, UMICAO, UEOS, UA #### [facility] [address] [place] [address] Events Associate: Ronn Arias MD Glucose [Mass/Vol] 99 mg/dL Normal 70-99 [facility] Comment on above: Performed By: #### U RNA, URTPRT, UMICAO, UEOS, UA #### [facility] [employer] [address] [place] [address] Events Associate: Ronn Arias MD Potassium [Moles/Vol] 4.6 mmol/L Normal 3.7-5.3 [facility] Comment on above: Performed By: #### U RNA, URTPRT, UMICAO, UEOS, UA #### [facility] [employer] [address] [place] [address] Events Associate: Ronn Arias MD Sodium [Moles/Vol] 147 mmol/L High 135-144 [facility] Comment on above: Performed By: #### U RNA, URTPRT, UMICAO, UEOS, UA #### [facility] [address] [place] [address] Events Associate: Ronn Arias MD Urea nitrogen [Mass/Vol] 40 mg/dL High 8-23 [facility] Comment on above: Performed By: #### U RNA, URTPRT, UMICAO, UEOS, UA #### [facility] [employer] [address] [place] [address] Events Associate: Ronn Arias MD IMMUNOFIXATION SERUM PROFILE on 01-05-2022 Pathologist Cyto stain Nom (Cvx/Vag) [ID] Reviewed by pathologist: Kailee Portillo M.D. [facility] Serum IFX Interp IMMUNOFIXATION IS NE GATIVE FOR MONOCLONAL IMMUNOGLOBULIN. [facility] Immunofixation,Bloodon 01-05 IFX - Interpret. IMMUNOFIXATION IS NE GATIVE FOR MONOCLONAL IMMUNOGLOBULIN. [facility] Comment on above: Performed By: #### U RNA, URTPRT, UMICAO, UEOS, UA #### [employer] [address] [place] [address] Events Associate: Ronn Arias MD Pathologist Review: Reviewed by patholog ist: Kailee Portillo M.D. [facility] Comment on above: Performed By: #### U RNA, URTPRT, UMICAO, UEOS, UA #### [employer] [address] [place] [address] Events Associate: Ronn Arias MD No Panel Informationon 01-05 [facility] Basic Metab w/rfx MGon 01-04 (cont.) [facility] Comment on above: Result Comment: Aver age GFR for 60-69 years old: 85 mL/min/1.73sq m Chronic Kidney Disease: <60 mL/min/1.73sq m Kidney failure: <15 mL/min/1.73sq m eGFR calculated using average adult body mass. Additional eGFR calculator available at: http://www.[employer].com/multiple_crcl_2012.htm Performed By: #### U RNA, URTPRT, UMICAO, UEOS, UA #### [employer] [address] [place] [address] Events Associate: Ronn Arias MD Anion gap [Moles/Vol] 13 mmol/L Normal -17 [facility] Comment on above: Performed By: #### U RNA, URTPRT, UMICAO, UEOS, UA #### [facility] [employer] [address] [place] [address] Events Associate: Ronn Arias MD Calcium [Mass/Vol] 6.6 mg/dL Low 8.6-10.4 [facility] Comment on above: Performed By: #### U RNA, URTPRT, UMICAO, UEOS, UA #### [facility] [address] [place] [address] Events Associate: Ronn Arias MD Chloride [Moles/Vol] 107 mmol/L Normal 98-107 [facility] Comment on above: Performed By: #### U RNA, URTPRT, UMICAO, UEOS, UA #### [address] [address] Events Associate: Ronn Arias MD CO2 [Moles/Vol] 21 mmol/L Normal 20-31 [facility] Comment on above: Performed By: #### U RNA, URTPRT, UMICAO, UEOS, UA #### [facility] [employer] [address] [place] [address] Events Associate: Ronn Arias MD Creatinine [Mass/Vol] 3.07 mg/dL High 0.70-1.20 [facility] Comment on above: Performed By: #### U RNA, URTPRT, UMICAO, UEOS, UA #### [facility] [employer] [address] [place] [address] Events Associate: Ronn Arias MD GFR, Amer 25 mL/min Low >60 [facility] Comment on above: Performed By: #### U RNA, URTPRT, UMICAO, UEOS, UA #### [facility] [employer] [address] [place] [address] Events Associate: Ronn Arias MD GFR,non Amer 20 mL/min Low >60 [facility] Comment on above: Performed By: #### U RNA, URTPRT, UMICAO, UEOS, UA #### [facility] [employer] [address] [place] [address] Events Associate: Ronn Arias MD Glucose [Mass/Vol] 95 mg/dL Normal 70-99 [facility] Comment on above: Performed By: #### U RNA, URTPRT, UMICAO, UEOS, UA #### [facility] [address] [place] [address] Events Associate: Ronn Arias MD Potassium [Moles/Vol] 4.3 mmol/L Normal 3.7-5.3 [facility] Comment on above: Performed By: #### U RNA, URTPRT, UMICAO, UEOS, UA #### [facility] [employer] [address] [place] [address] Events Associate: Ronn Arias MD Sodium [Moles/Vol] 141 mmol/L Normal 135-144 [facility] Comment on above: Performed By: #### U RNA, URTPRT, UMICAO, UEOS, UA #### [facility] [employer] [address] [place] [address] Events Associate: Ronn Arias MD Urea nitrogen [Mass/Vol] 54 mg/dL High 8-23 [facility] Comment on above: Performed By: #### U RNA, URTPRT, UMICAO, UEOS, UA #### [facility] [employer] [address] [place] [address] [phone] Events Associate: Ronn Arias MD Basic Metabolic Panel w/ Ref luz to on 01-04-2022 Anion gap [Moles/Vol] 13 mmol/L 9 - 17 mmol/L [facility] Calcium [Mass/Vol] 6.6 mg/dL Low 8.6 - 10. 4 mg/dL [facility] Chloride [Moles/Vol] 107 mmol/L 98 - 10 7 mmol/L [facility] CO2 [Moles/Vol] 21 mmol/L 20 - 31 mmol/L [facility] Creatinine [Mass/Vol] 3.07 mg/dL High 0.7 - 1.2 mg/dL [facility] GFR 25 mL/min Low 60 - PI NF mL/min [facility] GFR Non- 20 mL/min Low 60 - PINF mL/min [facility] GFR/1.73 sq M.predicted MDRD (S/P/Bld) [Vol rate/Area] [facility] Comment on above: Average GFR for 60-6 9 years old: 85 mL/min/1.73sq m Chronic Kidney Disease: <60 mL/min/1.73sq m Kidney failure: <15 mL/min/1.73sq m eGFR calculated using average adult body mass. Additional eGFR calculator available at: http://www.[employer]/multiple_crcl_2011.htm Glucose [Mass/Vol] 95 mg/dL 70 - 99 mg/dL [facility] Interpretation and review of laboratory results Abnormal [facility] Potassium [Moles/Vol] 4.3 mmol/L 3.7 - 5.3 mmol/L [facility] Sodium [Moles/Vol] 141 mmol/L 135 - 144 mmol/L [facility] Urea nitrogen (BldV) [Mass/Vol] 54 mg/dL High 8 - 23 mg/dL [facility] CBC with Auto Differentialon 01-04-2022 Absolute Eos # 0.19 [facility] Absolute Immature Granulocyte 0.09 [facility] Absolute Lymph # 1.34 [facility] Absolute [place] # 1.01 [facility] Basophils Absolute [facility] Basophils/100 WBC (Bld) 0 % 0 - 2 % [facility] Eosinophils/100 WBC (Bld) 2 % 1 - 4 % [facility] Hematocrit (Bld) [Volume fraction] 28.4 % Low 40.7 - 50.3 % [facility] Hemoglobin (Bld) [Mass/Vol] 9.3 g/dL Low 13 - 17 g/dL [facility] Immature granulocytes/100 WBC (Bld) 1 % High 0 [facility] Interpretation and review of laboratory results Abnormal [facility] Lymphocytes/100 WBC (Bld) 11 % Low 24 - 43 % [facility] MCH (RBC) [Entitic mass] 27.4 pg 25.2 - 33.5 pg [facility] MCHC (RBC) [Mass/Vol] 32.7 g/dL 28.4 - 34.8 g/dL [facility] MCV (RBC) [Entitic vol] 83.8 fL 82.6 - 102.9 fL [facility] Monocytes/100 WBC (Bld) 8 % 3 - 12 % [facility] NRBC Automated 0.0 0.0 per 100 WBC [facility] Platelet distribution width (Bld) [Ratio] 14.3 % 11.8 - 14.4 % [facility] Platelet mean volume (Bld) [Entitic vol] 10.6 fL 8.1 - 13.5 fL [facility] Platelets (Bld) [#/Vol] 177 10*3/uL [facility] RBC (Bld) [#/Vol] 3.39 10*6/uL Low 4.21 - 5.77 m/uL [facility] Segmented neutrophils/100 WBC (Bld) 78 % High 36 - 65 % [facility] Segs Absolute 9.54 High [facility] WBC (Bld) [#/Vol] 12.2 10*3/uL High [facility] CBC with Diffon 01-04-2022 Abs. Basophil <0.03 Normal 0.00-0.20 [facility] Comment on above: Performed By: #### U RNA, URTPRT, UMCATYO, UEOS, UA #### [facility] [address], [place] [id number] Events Associate: Ronn Arias MD Abs.Imm.Granulocyte 0.09 k/uL Normal 0.00-0.30 [facility] Comment on above: Performed By: #### U RNA, URTPRT, UMICAO, UEOS, UA #### [facility] [employer] [address] [place] [address] Events Associate: Ronn Arias MD Abs.Neutrophil (Seg) 9.54 k/uL High 1.50-8.10 [facility] Comment on above: Performed By: #### U RNA, URTPRT, UMICAO, UEOS, UA #### [facility] [employer] [address] [place] [phone] Events Associate: Ronn Arias MD Basophils/100 WBC (Bld) 0 % Normal 0-2 [facility] Comment on above: Performed By: #### U RNA, URTPRT, UMICAO, UEOS, UA #### [place] [address] Events Associate: Ronn Arias MD Eosinophils (Bld) [#/Vol] 0.19 10*3/uL Normal 0.00-0.44 [facility] Comment on above: Performed By: #### U RNA, URTPRT, UMICAO, UEOS, UA #### [facility] [employer] [address] [place] [address] Events Associate: Ronn Arias MD Eosinophils/100 WBC (Bld) 2 % Normal 1-4 [facility] Comment on above: Performed By: #### U RNA, URTPRT, UMICAO, UEOS, UA #### [facility] [employer] [address] [place] [address] Events Associate: Ronn Arias MD Erythrocyte distribution width (RBC) [Ratio] 14.3 % Normal 11.8-14.4 [facility] Comment on above: Performed By: #### U RNA, URTPRT, UMICAO, UEOS, UA #### [facility] [employer] [address] [place] [address] Events Associate: Ronn Arias MD Hematocrit (Bld) [Volume fraction] 28.4 % Low 40.7-50.3 [facility] Comment on above: Performed By: #### U RNA, URTPRT, UMICAO, UEOS, UA #### [facility] [address] [place] [address] Events Associate: Ronn Arias MD Hemoglobin (Bld) [Mass/Vol] 9.3 g/dL Low 13.0-17.0 [facility] Comment on above: Performed By: #### U RNA, URTPRT, UMICAO, UEOS, UA #### [address] [address] Events Associate: Ronn Arias MD Immature granulocytes/100 WBC (Bld) 1 % High 0 [facility] Comment on above: Performed By: #### U RNA, URTPRT, UMICAO, UEOS, UA #### [address] [address] Events Associate: Ronn Arias MD Lymphocytes (Bld) [#/Vol] 1.34 10*3/uL Normal 1.10-3.70 [facility] Comment on above: Performed By: #### U RNA, URTPRT, UMICAO, UEOS, UA #### [address] [address] Events Associate: Ronn Arias MD Lymphocytes/100 WBC (Bld) 11 % Low 24-43 [facility] Comment on above: Performed By: #### U RNA, URTPRT, UMICAO, UEOS, UA #### [address] [address] Events Associate: Ronn Arias MD MCH (RBC) [Entitic mass] 27.4 pg Normal 25.2-33.5 [facility] Comment on above: Performed By: #### U RNA, URTPRT, UMICAO, UEOS, UA #### [address] [address] Events Associate: Ronn Arias MD MCHC (RBC) [Mass/Vol] 32.7 g/dL Normal 28.4-34.8 [facility] Comment on above: Performed By: #### U RNA, URTPRT, UMICAO, UEOS, UA #### [address] [address] Events Associate: Ronn Arias MD MCV (RBC) [Entitic vol] 83.8 fL Normal 82.6-102.9 [facility] Comment on above: Performed By: #### U RNA, URTPRT, UMICAO, UEOS, UA #### [address] [address] Events Associate: Ronn Arias MD Monocytes (Bld) [#/Vol] 1.01 10*3/uL Normal 0.10-1.20 [facility] Comment on above: Performed By: #### U RNA, URTPRT, UMICAO, UEOS, UA #### [address] [address] Events Associate: Ronn Arias MD Monocytes/100 WBC (Bld) 8 % Normal 3-12 [facility] Comment on above: Performed By: #### U RNA, URTPRT, UMICAO, UEOS, UA #### [address] [address] Events Associate: Ronn Arias MD Neutrophil (Seg) 78 % High 36-65 [facility] Comment on above: Performed By: #### U RNA, URTPRT, UMICAO, UEOS, UA #### [address] [address] Events Associate: Ronn Arias MD NRBC Automated 0.0 per 100 WBC Normal 0.0 [facility] Comment on above: Performed By: #### U RNA, URTPRT, UMICAO, UEOS, UA #### [address] [address] Events Associate: Ronn Arias MD Platelet mean volume (Bld) [Entitic vol] 10.6 fL Normal 8.1-13.5 [facility] Comment on above: Performed By: #### U RNA, URTPRT, UMICAO, UEOS, UA #### [address] [address] Events Associate: Ronn Arias MD Platelets (Bld) [#/Vol] 177 10*3/uL Normal 138-453 [facility] Comment on above: Performed By: #### U RNA, URTPRT, UMICAO, UEOS, UA #### [address] [address] Events Associate: Ronn Arias MD RBC (Bld) [#/Vol] 3.39 10*6/uL Low 4.21-5.77 [facility] Comment on above: Performed By: #### U RNA, URTPRT, UMICAO, UEOS, UA #### [address] [address] Events Associate: Ronn Arias MD WBC (Bld) [#/Vol] 12.2 10*3/uL High 3.5-11.3 [facility] Comment on above: Performed By: #### U RNA, URTPRT, UMICAO, UEOS, UA #### [address] [address] Events Associate: Ronn Arias MD Basic Metab w/rfx MGon 01-03 (cont.) Normal [facility] Comment on above: Result Comment: Aver age GFR for 60-69 years old: 85 mL/min/1.73sq m Chronic Kidney Disease: <60 mL/min/1.73sq m Kidney failure: <15 mL/min/1.73sq m eGFR calculated using average adult body mass. Additional eGFR calculator available at: http://www.[employer]/multiple_crcl_2012.htm Performed By: #### L ACDS #### [address] [address] Events Associate: Ronn Arias MD Anion gap [Moles/Vol] 16 mmol/L Normal 9-17 [facility] Comment on above: Performed By: #### L ACDS #### [address] [address] Events Associate: Ronn Arias MD Calcium [Mass/Vol] 6.9 mg/dL Low 8.6-10.4 [facility] Comment on above: Performed By: #### L ACDS #### [address] [address] Events Associate: Ronn Arias MD Chloride [Moles/Vol] 106 mmol/L Normal 98-107 [facility] Comment on above: Performed By: #### L ACDS #### [facility] [employer] [address] [place] [address] Events Associate: Ronn Arias MD CO2 [Moles/Vol] 16 mmol/L Low 20-31 [facility] Comment on above: Performed By: #### L ACDS #### [address] [address] Events Associate: Ronn Arias MD Creatinine [Mass/Vol] 3.44 mg/dL High 0.70-1.20 [facility] Comment on above: Performed By: #### L ACDS #### [address] [address] Events Associate: Ronn Arias MD GFR, Amer 22 mL/min Low >60 [facility] Comment on above: Performed By: #### L ACDS #### [facility] [address] [place] [address] Events Associate: Ronn Arias MD GFR,non Amer 18 mL/min Low >60 [facility] Comment on above: Performed By: #### L ACDS #### [address] [address] Events Associate: Ronn Arias MD Glucose [Mass/Vol] 138 mg/dL High 70-99 [facility] Comment on above: Performed By: #### L ACDS #### [address] [address] Events Associate: Ronn Arias MD Potassium [Moles/Vol] 4.8 mmol/L Normal 3.7-5.3 [facility] Comment on above: Performed By: #### L ACDS #### [address] [address] Events Associate: Ronn Arias MD Sodium [Moles/Vol] 138 mmol/L Normal 135-144 [facility] Comment on above: Performed By: #### L ACDS #### [address] [address] Events Associate: Ronn Arias MD Urea nitrogen [Mass/Vol] 53 mg/dL High 8-23 [facility] Comment on above: Performed By: #### L ACDS #### [address] [address] Events Associate: Ronn Arias MD Basic Metabolic Panel w/ Ref luz to MGon 01-03-2022 Anion gap [Moles/Vol] 16 mmol/L 9 - 17 mmol/L [facility] Calcium [Mass/Vol] 6.9 mg/dL Low 8.6 - 10. 4 mg/dL [facility] Chloride [Moles/Vol] 106 mmol/L 98 - 10 7 mmol/L [facility] CO2 [Moles/Vol] 16 mmol/L Low 20 - 31 mmol/L [facility] Creatinine [Mass/Vol] 3.44 mg/dL High 0.7 - 1.2 mg/dL [facility] GFR 22 mL/min Low 60 - PI NF mL/min [facility] GFR Non- 18 mL/min Low 60 - PINF mL/min [facility] GFR/1.73 sq M.predicted MDRD (S/P/Bld) [Vol rate/Area] [facility] Comment on above: Average GFR for 60-6 9 years old: 85 mL/min/1.73sq m Chronic Kidney Disease: <60 mL/min/1.73sq m Kidney failure: <15 mL/min/1.73sq m eGFR calculated using average adult body mass. Additional eGFR calculator available at: http://www.[employer]/multiple_crcl_2012.htm Glucose [Mass/Vol] 138 mg/dL High 70 - 99 mg/dL [facility] Potassium [Moles/Vol] 4.8 mmol/L 3.7 - 5.3 mmol/L [facility] Sodium [Moles/Vol] 138 mmol/L 135 - 144 mmol/L [facility] Urea nitrogen (BldV) [Mass/Vol] 53 mg/dL High 8 - 23 mg/dL [facility] C3on 01-03-2022 C3 108 mg/dL Normal 90-180 [facility] Comment on above: Performed By: #### U RNA, URTPRT, UMCATYO UEOS, UA #### [employer] [address] [place] [address] Events Associate: Ronn Arias MD C3 COMPLEMENTon 01-03-2022 Complement C3 108 mg/dL 90 - 180 mg/dL [facility] C4on 01-03-2022 C4 21 mg/dL Normal 10-40 [facility] Comment on above: Performed By: #### U RNA, URTPRT, UMICAO, UEOS, UA #### [facility] [address] [place] [address] Events Associate: Ronn Arias MD C4 COMPLEMENTon 01-03-2022 Complement C4 21 mg/dL 10 - 40 mg/dL [facility] CBC with Auto Differentialon 01-03-2022 Absolute Eos # [facility] Absolute Immature Granulocyte 0.09 [facility] Lymph # 0.76 Low [facility] Absolute [place] # 0.39 [facility] Basophils Absolute [facility] Basophils/100 WBC (Bld) 0 % 0 - 2 % [facility] Eosinophils/100 WBC (Bld) 0 % Low 1 - 4 % [facility] Hematocrit (Bld) [Volume fraction] 31.4 % Low 40.7 - 50.3 % [facility] Hemoglobin (Bld) [Mass/Vol] 10.3 g/dL Low 13 - 17 g/dL [facility] Immature granulocytes/100 WBC (Bld) 1 % High 0 [facility] Lymphocytes/100 WBC (Bld) 6 % Low 24 - 43 % [facility] MCH (RBC) [Entitic mass] 27.5 pg 25.2 - 33.5 pg [facility] MCHC (RBC) [Mass/Vol] 32.8 g/dL 28.4 - 34.8 g/dL [facility] MCV (RBC) [Entitic vol] 83.7 fL 82.6 - 102.9 fL [facility] Monocytes/100 WBC (Bld) 3 % 3 - 12 % [facility] NRBC Automated 0.0 0.0 per 100 WBC [facility] Platelet distribution width (Bld) [Ratio] 14.5 % High 11.8 - 14.4 % [facility] Platelet mean volume (Bld) [Entitic vol] 10.9 fL 8.1 - 13.5 fL [facility] Platelets (Bld) [#/Vol] 170 10*3/uL [facility] RBC (Bld) [#/Vol] 3.75 10*6/uL Low 4.21 - 5.77 m/uL [facility] RBC (Bld) [#/Vol] ANISOCYTOSIS PRESENT [facility] Segmented neutrophils/100 WBC (Bld) 90 % High 36 - 65 % [facility] Segs Absolute 11.26 High [facility] WBC (Bld) [#/Vol] 12.5 10*3/uL High [facility] CBC with Diffon 01-03-2022 Abs. Basophil <0.03 Normal 0.00-0.20 [facility] Comment on above: Performed By: #### L ACDS #### [place] [address] Events Associate: Ronn Arias MD Abs. Eosinophil <0.03 Normal 0.00-0.44 [facility] Comment on above: Performed By: #### L ACDS #### [address] [address] Events Associate: Ronn Arias MD Abs.Imm.Granulocyte 0.09 k/uL Normal 0.00-0.30 [facility] Comment on above: Performed By: #### L ACDS #### [address] [address] Events Associate: Ronn Arias MD Abs.Neutrophil (Seg) 11.26 k/uL High 1.50-8.10 [facility] Comment on above: Performed By: #### L ACDS #### [address] [address] Events Associate: Ronn Arias MD Basophils/100 WBC (Bld) 0 % Normal 0-2 [facility] Comment on above: Performed By: #### L ACDS #### [address] [id number] Events Associate: Ronn Arias MD Eosinophils/100 WBC (Bld) 0 % Low 1-4 [facility] Comment on above: Performed By: #### L ACDS #### [address] [address] Events Associate: Ronn Arias MD Erythrocyte distribution width (RBC) [Ratio] 14.5 % High 11.8-14.4 [facility] Comment on above: Performed By: #### L ACDS #### [address] [address] Events Associate: Ronn Arias MD Hematocrit (Bld) [Volume fraction] 31.4 % Low 40.7-50.3 [facility] Comment on above: Performed By: #### L ACDS #### [place] [address] Events Associate: Ronn Arias MD Hemoglobin (Bld) [Mass/Vol] 10.3 g/dL Low 13.0-17.0 [facility] Comment on above: Performed By: #### L ACDS #### [address] [address] Events Associate: Ronn Arias MD Immature granulocytes/100 WBC (Bld) 1 % High 0 [facility] Comment on above: Performed By: #### L ACDS #### [address] [address] Events Associate: Ronn Arias MD Lymphocytes (Bld) [#/Vol] 0.76 10*3/uL Low 1.10-3.70 [facility] Comment on above: Performed By: #### L ACDS #### [address] [address] Events Associate: Ronn Arias MD Lymphocytes/100 WBC (Bld) 6 % Low 24-43 [facility] Comment on above: Performed By: #### L ACDS #### [address] [address] Events Associate: Ronn Arias MD MCH (RBC) [Entitic mass] 27.5 pg Normal 25.2-33.5 [facility] Comment on above: Performed By: #### L ACDS #### [address] [address] Events Associate: Ronn Arias MD MCHC (RBC) [Mass/Vol] 32.8 g/dL Normal 28.4-34.8 [facility] Comment on above: Performed By: #### L ACDS #### [address] [address] Events Associate: Ronn Arias MD MCV (RBC) [Entitic vol] 83.7 fL Normal 82.6-102.9 [facility] Comment on above: Performed By: #### L ACDS #### [address] [address] Events Associate: Ronn Arias MD Monocytes (Bld) [#/Vol] 0.39 10*3/uL Normal 0.10-1.20 [facility] Comment on above: Performed By: #### L ACDS #### [address] [address] Events Associate: Ronn Arias MD Monocytes/100 WBC (Bld) 3 % Normal 3-12 [facility] Comment on above: Performed By: #### L ACDS #### [address] [address] Events Associate: Ronn Arias MD Neutrophil (Seg) 90 % High 36-65 [facility] Comment on above: Performed By: #### L ACDS #### [address] [address] Events Associate: Ronn Arias MD NRBC Automated 0.0 per 100 WBC Normal 0.0 [facility] Comment on above: Performed By: #### L ACDS #### [address] [address] Events Associate: Ronn Arias MD Platelet mean volume (Bld) [Entitic vol] 10.9 fL Normal 8.1-13.5 [facility] Comment on above: Performed By: #### L ACDS #### [address] [address] Events Associate: Ronn Arias MD Platelets (Bld) [#/Vol] 170 10*3/uL Normal 138-453 [facility] Comment on above: Performed By: #### L ACDS #### [address] [address] Events Associate: Ronn Arias MD RBC (Bld) [#/Vol] 3.75 10*6/uL Low 4.21-5.77 [facility] Comment on above: Performed By: #### L ACDS #### [address] [address] Events Associate: Ronn Arias MD RBC morphology finding Nom (Bld) ANISOCYTOSIS PRESENT Normal [facility] Comment on above: Performed By: #### L ACDS #### [address] [address] Events Associate: Ronn Arias MD WBC (Bld) [#/Vol] 12.5 10*3/uL High 3.5-11.3 [facility] Comment on above: Performed By: #### L ACDS #### [address] [address] Events Associate: Ronn Arias MD EOSINOPHILS, URINEon 022 Eosinophil, Ur NONE SEEN NONE SEEN [facility] Eosinophils, Urineon 022 Eosinophils, Urine NONE SEEN Normal NSN [facility] Comment on above: Performed By: #### U RNA, URTPRT, UMICAO, UEOS, UA #### [employer] [address] [place] [address] Events Associate: Ronn Arias MD Free [place] + Lambdaon 2021 Free [place] Lt Chains 4.01 mg/dL High 0.37-1.94 [facility] Comment on above: Performed By: #### U RNA, URTPRT, UMICAO, UEOS, UA #### [facility] [address] [place], [place] [phone] Events Associate: Ronn Arias MD Free [place]/Lambda Rat 1.94 High 0.26-1.65 [facility] Comment on above: Performed By: #### U RNA, URTPRT, UMICAO, UEOS, UA #### [employer] [address] [place], [place] [phone] Events Associate: Ronn Arias MD Free [place] Lt Chains 2.07 mg/dL Normal 0.57-2.63 [facility] Comment on above: Performed By: #### U RNA, URTPRT, UMICAO, UEOS, UA #### [facility] [address] [place] [phone] Events Associate: Ronn Arias MD Hepatic Function Panelon Albumin [Mass/Vol] 3.2 g/dL Low 3.5 - 5.2 g/dL [facility] Albumin/Globulin [Mass ratio] 0.9 {ratio} Low 1 - 2.5 [facility] ALP (Bld) [Catalytic activity/Vol] 104 U/L 40 - 129 U/L [facility] ALT [Catalytic activity/Vol] 94 U/L High 5 - 41 U/L [facility] AST [Catalytic activity/Vol] 49 U/L High NINF - 40 U/L [facility] Bilirubin [Mass/Vol] 1.1 mg/dL 0.3 - 1 .2 mg/dL [facility] Bilirubin, Indirect 0.5 mg/dL 0 - 1 mg/dL [facility] Bilirubin.indirect [Mass/Vol] 0.6 mg/dL High NINF - 0.31 mg/dL [facility] Free PSA/Total PSA [Mass fraction] 6.7 g/dL 6.4 - 8.3 g/dL [facility] [place]/Lambda Quantitative Fr ee Light Chains, Serumon 01-03-2022 Free [place]/Lambda Ratio 1.94 High 0.26 - 1.65 [facility] [place] Free Light Chains QNT 4.01 mg/dL High 0.37 - 1.94 mg/dL [facility] Lambda Free Light Chains QNT 2.07 mg/dL 0.57 - 2.63 mg/dL [facility] Lactate, Sepsison 01-03-2022 Lactic Acid, Sepsis, Whole Blood 1.5 mmol/L 0.5 - 1.9 mmol/L [facility] Lactic Acid, Sepsis, Whole Blood 1.4 mmol/L 0.5 - 1.9 mmol/L [facility] Lactic Acid, Sepsis, Whole Blood 1.8 mmol/L 0.5 - 1.9 mmol/L [facility] Lactic Acid,Sep Wbld 1.2 mmol/L Normal 0.5-1.9 [facility] Comment on above: Performed By: #### L ACDS #### [facility] [place] [phone] Events Associate: Ronn Arias MD Lactic Acid,Sep Wbld 1.5 mmol/L Normal 0.5-1.9 [facility] Comment on above: Performed By: #### L ACDS #### [facility] [place], [place] [phone] Events Associate: Ronn Arias MD Lactic Acid,Sep Wbld 1.4 mmol/L Normal 0.5-1.9 [facility] Comment on above: Performed By: #### U RNA, URTPRT, UMICAO, UEOS, UA #### [address] [address] Events Associate: Ronn Arias MD Lactic Acid,Sep Wbld 1.8 mmol/L Normal 0.5-1.9 [facility] Comment on above: Performed By: #### L ACDS #### [address] [address] Events Associate: Ronn Arias MD [facility] Lipaseon 01-03-2022 Lipase [Catalytic activity/Vol] 250 U/L High 13 - 60 U/L [facility] Lipase [Catalytic activity/Vol] 250 U/L High 13-60 [facility] Comment on above: Performed By: #### L ACDS #### [address] [address] Events Associate: Ronn Arias MD Liver Profileon 01-03-2022 Albumin [Mass/Vol] 3.2 g/dL Low 3.5-5.2 [facility] Comment on above: Performed By: #### L ACDS #### [address] [address] Events Associate: Ronn Arias MD Albumin/Glob Ratio 0.9 Low 1.0-2.5 [facility] Comment on above: Performed By: #### L ACDS #### [address] [address] Events Associate: Ronn Arias MD Alkaline Phos 104 U/L Normal 40-129 [facility] Comment on above: Performed By: #### L ACDS #### [facility] [employer] [address] [place] [address] Events Associate: Ronn Arias MD ALT [Catalytic activity/Vol] 94 U/L High 5-41 [facility] Comment on above: Performed By: #### L ACDS #### [address] [address] Events Associate: Ronn Arias MD AST [Catalytic activity/Vol] 49 U/L High <40 [facility] Comment on above: Performed By: #### L ACDS #### [address] [address] Events Associate: Ronn Arias MD Bilirubin [Mass/Vol] 1.1 mg/dL Normal 0.3-1.2 [facility] Comment on above: Performed By: #### L ACDS #### [address] [address] Events Associate: Ronn Arias MD Bilirubin, Indirect 0.5 mg/dL Normal 0.00-1.00 [facility] Comment on above: Performed By: #### L ACDS #### [address] [address] Events Associate: Ronn Arias MD Bilirubin.indirect [Mass/Vol] 0.6 mg/dL High <0.31 [facility] Comment on above: Performed By: #### L ACDS #### [address] [address] Events Associate: Ronn Arias MD Protein [Mass/Vol] 6.7 g/dL Normal 6.4-8.3 [facility] Comment on above: Performed By: #### L ACDS #### [address] [address] Events Associate: Ronn Arias MD Microscopic Urinalysison Casts UA 2 TO 5 HYALINE Refer ence range defined for non-centrifuged specimen. [facility] Epithelial Cells UA None [facility] RBC, UA 2 TO 5 [facility] Comment on above: Reference range defi juan for non-centrifuged specimen. WBC, UA 2 TO 5 [facility] No Panel Informationon 01-03 Interpretation and review of laboratory results Abnormal [facility] Interpretation and review of laboratory results Abnormal [facility] Procalcitoninon 01-03-2022 Procalcitonin 16.48 ng/mL High NINF - 0.09 ng/mL [facility] Comment on above: Suspected Sepsis: [...] entered into the Change in Procalcitonin Calculator (www.ikcbrk-gqp-qtyhuzqsia.com) to determine the patient's Mortality Risk Prognosis In healthy neonates, plasma Procalcitonin (PCT) concentrations increase gradually after , reaching peak values at about 24 hours of age then decrease to normal values below 0.5 ng/mL by 48-72 hours of age. Procalcitonin 16.48 ng/mL High <0.09 [facility] Comment on above: Result Comment: Suspected [...] entered into the Change in Procalcitonin Calculator (www.bszptw-nvk-xcefougkae.com) to determine the patient's Mortality Risk Prognosis In healthy neonates, plasma Procalcitonin (PCT) concentrations increase gradually after , reaching peak values at about 24 hours of age then decrease to normal values below 0.5 ng/mL by 48-72 hours of age. Performed By: #### L ACDS #### [employer] [address] [place] [address] Events Associate: Ronn Arias MD Protein / creatinine ratio, urineon 01-03-2022 Creatinine, Ur 84.8 mg/dL 39 - 259 mg/dL [facility] Protein (U) [Mass/Vol] 16 mg/dL [facility] [employer] Comment on above: No normal range esta blished. Urine Total Protein Creatinine Ratio 0.19 0 - 0.2 [facility] [employer] Protein,Tot,[place] Uron 2021 Creatinine [Mass/Vol] 84.8 mg/dL Normal 39.0-259.0 [facility] Comment on above: Performed By: #### U RNA, URTPRT, UMICAO, UEOS, UA #### [employer] [address] [place] [address] Events Associate: Ronn Arias MD Tot Prot. Conc. 16 mg/dL Normal [facility] Comment on above: Result Comment: No n ormal range established. Performed By: #### U RNA, URTPRT, UMICAO, UEOS, UA #### [employer] [facility] [place] [address] Events Associate: Ronn Arias MD TP/Cre Ratio 0.19 Normal 0.00-0.20 [facility] Comment on above: Performed By: #### U RNA, URTPRT, UMICAO, UEOS, UA #### [employer] [address] [place] [phone] Events Associate: Ronn Arias MD SODIUM, URINE, RANDOMon 12-21 Sodium (U) [Moles/Vol] 83 mmol/L [facility] Comment on above: No normal [...] two black choleliths, each measuring 0.5 cm. Loss Control Engineer sections 1c to include cystic duct margin (inked blue), fundus, body and neck. tm Microscopic Description Microscopic examination performed. SURGICAL PATHOLOGY CONSULTATION Patient Name: YOLI ANTUNEZ [facility] Rec: [id number] Path Number: [id number] [facility] ANATOMIC PATHOLOGY [address] [place] [phone] [facility] Sodium, Random Uron 01-04-20 22 Sodium (U) [Moles/Vol] 83 mmol/L Normal [facility] Comment on above: Result Comment: No n ormal range established. Performed By: #### U RNA, URTPRT, UMICAO, UEOS, UA #### [employer] [address] [place] [address] [phone] Events Associate: Ronn Arias MD Urinalysison 01-03-2022 Bilirubin Urine Negative NEGATIVE [facility] Color, UA Yellow Yellow [facility] Glucose, Ur Negative NEGATIVE [facility] Ketones Ql (U) Negative NEGATIVE [facility] Leukocyte esterase Test strip Ql (U) Negative NEGATIVE [facility] Nitrite, Urine Negative NEGATIVE [facility] pH, UA 5.5 5 - 8 [facility] Protein, UA TRACE Abnormal NEGATIVE [facility] Specific [place], UA 1.014 1.005 - 1.03 [facility] Turbidity UA Clear Clear [facility] Urine Hgb TRACE Abnormal NEGATIVE [facility] Urobilinogen, Urine Normal Normal [facility] Urinalysis, Routineon 2021 Bilirubin, SemiQt,Ur Negative Normal NEG [facility] Comment on above: Performed By: #### U RNA, URTPRT, UMICAO, UEOS, UA #### [facility] [address] [place] [address] [phone] Events Associate: Ronn Arias MD Blood, Urine TRACE Abnormal NEG [facility] Comment on above: Performed By: #### U RNA, URTPRT, UMICAO, UEOS, UA #### [facility] [address] [place] [address] Events Associate: Ronn Arias MD Clarity (U) Clear Normal CLEAR [facility] Comment on above: Performed By: #### U RNA, URTPRT, UMICAO, UEOS, UA #### [facility] [address] [place] [address] Events Associate: Ronn Arias MD Color (U) Yellow Normal YEL [facility] Comment on above: Performed By: #### U RNA, URTPRT, UMICAO, UEOS, UA #### [facility] [address] [place] [address] Events Associate: Ronn Arias MD Glucose Ql (U) Negative Normal NEG [facility] Comment on above: Performed By: #### U RNA, URTPRT, UMICAO, UEOS, UA #### [facility] [address] [place] [address] Events Associate: Ronn Arias MD Ketones Ql (U) Negative Normal NEG [facility] Comment on above: Performed By: #### U RNA, URTPRT, UMICAO, UEOS, UA #### [facility] [address] [place] [address] Events Associate: Ronn Arias MD Leukocyte esterase Test strip Ql (U) Negative Normal NEG [facility] Comment on above: Performed By: #### U RNA, URTPRT, UMICAO, UEOS, UA #### [address] [address] Events Associate: Ronn Arias MD Nitrite,Ur Negative Normal NEG [facility] Comment on above: Performed By: #### U RNA, URTPRT, UMICAO, UEOS, UA #### [address] [address] Events Associate: Ronn Arias MD PH,Ur 5.5 Normal 5.0-8.0 [facility] Comment on above: Performed By: #### U RNA, URTPRT, UMICAO, UEOS, UA #### [facility] [address] [place] [address] Events Associate: Ronn Arias MD Protein Ql (U) TRACE Abnormal NEG [facility] Comment on above: Performed By: #### U RNA, URTPRT, UMICAO, UEOS, UA #### [facility] [address] [place] [address] Events Associate: Ronn Arias MD Spec. [place],Ur 1.014 Normal 1.005-1.03 0 [facility] Comment on above: Performed By: #### U RNA, URTPRT, UMICAO, UEOS, UA #### [address] [address] Events Associate: Ronn Arias MD Urobilinogen,Ur Normal Normal NORM [facility] Comment on above: Performed By: #### U RNA, URTPRT, UMICAO, UEOS, UA #### [address] [address] Events Associate: Ronn Arias MD Urinalysis,Microon 2 Casts 2 TO 5 HYALINE Normal 0-8 [facility] Comment on above: Result Comment: Refe rence range defined for non-centrifuged specimen. Performed By: #### U RNA, URTPRT, UMICAO, UEOS, UA #### [address] [address] Events Associate: Ronn Arias MD Epithelial cells LM Ql (Urine sed) None Normal 0-5 [facility] Comment on above: Performed By: #### U RNA, URTPRT, UMICAO, UEOS, UA #### [address] [address] Events Associate: Ronn Arias MD Urine RBC's 2 TO 5 Normal 0-4 [facility] Comment on above: Result Comment: Refe rence range defined for non-centrifuged specimen. Performed By: #### U RNA, URTPRT, UMICAO, UEOS, UA #### [address] [address] Events Associate: Ronn Arias MD Urine WBC's 2 TO 5 Normal 0-5 [facility] Comment on above: Performed By: #### U RNA, URTPRT, UMICAO, UEOS, UA #### [facility] [address] [address] Events Associate: Ronn Arias MD Basic Metab w/rfx MGon 01-02 (cont.) [facility] Comment on above: Result Comment: Aver age GFR for 60-69 years old: 85 mL/min/1.73sq m Chronic Kidney Disease: <60 mL/min/1.73sq m Kidney failure: <15 mL/min/1.73sq m eGFR calculated using average adult body mass. Additional eGFR calculator available at: http://www.[employer]/multiple_crcl_2012.htm Performed By: #### L IVP, BMPX, LIP, CDP #### [employer] [address] [place] [address] Events Associate: Ronn Arias MD (cont.) [facility] Comment on above: Result Comment: Aver age GFR for 60-69 years old: 85 mL/min/1.73sq m Chronic Kidney Disease: <60 mL/min/1.73sq m Kidney failure: <15 mL/min/1.73sq m eGFR calculated using average adult body mass. Additional eGFR calculator available at: http://www.[employer]/multiple_crcl_2011.htm Performed By: #### L ACDS #### [employer] [address] [place] [address] Events Associate: Ronn Arias MD Anion gap [Moles/Vol] 14 mmol/L Normal -17 [facility] Comment on above: Performed By: #### L IVP, BMPX, LIP, CDP #### [employer] [address] [place] [address] Events Associate: Ronn Arias MD Anion gap [Moles/Vol] 14 mmol/L Normal -17 [facility] Comment on above: Performed By: #### L ACDS #### [employer] [address] [place] [address] Events Associate: Ronn Arias MD Calcium [Mass/Vol] 7.2 mg/dL Low 8.6-10.4 [facility] Comment on above: Performed By: #### L IVP, BMPX, LIP, CDP #### [facility] [address] [place] [address] Events Associate: Ronn Arias MD Calcium [Mass/Vol] 7.2 mg/dL Low 8.6-10.4 [facility] Comment on above: Performed By: #### L ACDS #### [facility] [address] [place] [address] Events Associate: Ronn Arias MD Chloride [Moles/Vol] 109 mmol/L High 98-107 [facility] Comment on above: Performed By: #### L IVP, BMPX, LIP, CDP #### [address] [address] Events Associate: Ronn Arias MD Chloride [Moles/Vol] 108 mmol/L High 98-107 [facility] Comment on above: Performed By: #### L ACDS #### [address] [address] Events Associate: Ronn Arias MD CO2 [Moles/Vol] 18 mmol/L Low 20-31 [facility] Comment on above: Performed By: #### L IVP, BMPX, LIP, CDP #### [facility] [address] [place] [address] Events Associate: Ronn Arias MD CO2 [Moles/Vol] 20 mmol/L Normal 20-31 [facility] Comment on above: Performed By: #### L ACDS #### [facility] [employer] [address] [place] [address] Events Associate: Ronn Arias MD Creatinine [Mass/Vol] 4.02 mg/dL High 0.70-1.20 [facility] Comment on above: Performed By: #### L IVP, BMPX, LIP, CDP #### [facility] [address] [place] [address] Events Associate: Ronn Arias MD Creatinine [Mass/Vol] 3.51 mg/dL High 0.70-1.20 [facility] Comment on above: Performed By: #### L ACDS #### [facility] [address] [place] [address] Events Associate: Ronn Arias MD GFR, Amer 18 mL/min Low >60 [facility] Comment on above: Performed By: #### L IVP, BMPX, LIP, CDP #### [facility] [address] [place] [address] Events Associate: Ronn Arias MD GFR, Amer 21 mL/min Low >60 [facility] Comment on above: Performed By: #### L ACDS #### [address] [address] Events Associate: Ronn Arias MD GFR,non Amer 15 mL/min Low >60 [facility] Comment on above: Performed By: #### L IVP, BMPX, LIP, CDP #### [address] [address] Events Associate: Ronn Arias MD GFR,non Amer 17 mL/min Low >60 [facility] Comment on above: Performed By: #### L ACDS #### [facility] [address] [place] [address] Events Associate: Ronn Arias MD Glucose [Mass/Vol] 106 mg/dL High 70-99 [facility] Comment on above: Performed By: #### L IVP, BMPX, LIP, CDP #### [facility] [address] [place] [address] Events Associate: Ronn Arias MD Glucose [Mass/Vol] 122 mg/dL High 70-99 [facility] Comment on above: Performed By: #### L ACDS #### [facility] [address] [place] [address] Events Associate: Ronn Arias MD Potassium [Moles/Vol] 4.6 mmol/L Normal 3.7-5.3 [facility] Comment on above: Performed By: #### L IVP, BMPX, LIP, CDP #### [facility] [address] [place] [address] Events Associate: Ronn Arias MD Potassium [Moles/Vol] 5.0 mmol/L Normal 3.7-5.3 [facility] Comment on above: Performed By: #### L ACDS #### [address] [address] Events Associate: Ronn Arias MD Sodium [Moles/Vol] 141 mmol/L Normal 135-144 [facility] Comment on above: Performed By: #### L IVP, BMPX, LIP, CDP #### [facility] [employer] [address] [place] [address] Events Associate: Ronn Arias MD Sodium [Moles/Vol] 142 mmol/L Normal 135-144 [facility] Comment on above: Performed By: #### L ACDS #### [facility] [employer] [address] [place] [address] Events Associate: Ronn Arias MD Urea nitrogen [Mass/Vol] 63 mg/dL High 8-23 [facility] Comment on above: Performed By: #### L IVP, BMPX, LIP, CDP #### [facility] [employer] [address] [place] [address] Events Associate: Ronn Arias MD Urea nitrogen [Mass/Vol] 55 mg/dL High 8-23 [facility] Comment on above: Performed By: #### L ACDS #### [facility] [address] [place] [address] Events Associate: Ronn Arias MD Basic Metabolic Panel w/ Ref luz to MGon 01-02-2022 Anion gap [Moles/Vol] 14 mmol/L 9 - 17 mmol/L [facility] Anion gap [Moles/Vol] 14 mmol/L 9 - 17 mmol/L [facility] Calcium [Mass/Vol] 7.2 mg/dL Low 8.6 - 10. 4 mg/dL [facility] [employer] Calcium [Mass/Vol] 7.2 mg/dL Low 8.6 - 10. 4 mg/dL [facility] Chloride [Moles/Vol] 109 mmol/L High 98 - 10 7 mmol/L [facility] Chloride [Moles/Vol] 108 mmol/L High 98 - 10 7 mmol/L [facility] CO2 [Moles/Vol] 18 mmol/L Low 20 - 31 mmol/L [facility] CO2 [Moles/Vol] 20 mmol/L 20 - 31 mmol/L [facility] Creatinine [Mass/Vol] 4.02 mg/dL High 0.7 - 1.2 mg/dL [facility] Creatinine [Mass/Vol] 3.51 mg/dL High 0.7 - 1.2 mg/dL [facility] GFR 18 mL/min Low 60 - PI NF mL/min [facility] GFR 21 mL/min Low 60 - PI NF mL/min [facility] GFR Non- 15 mL/min Low 60 - PINF mL/min [facility] GFR Non- 17 mL/min Low 60 - PINF mL/min [facility] GFR/1.73 sq M.predicted MDRD (S/P/Bld) [Vol rate/Area] [facility] Comment on above: Average GFR for 60-6 9 years old: 85 mL/min/1.73sq m Chronic Kidney Disease: <60 mL/min/1.73sq m Kidney failure: <15 mL/min/1.73sq m eGFR calculated using average adult body mass. Additional eGFR calculator available at: http://www.[employer] Mailing/multiple_crcl_2012.htm GFR/1.73 sq M.predicted MDRD (S/P/Bld) [Vol rate/Area] [facility] Comment on above: Average GFR for 60-6 9 years old: 85 mL/min/1.73sq m Chronic Kidney Disease: <60 mL/min/1.73sq m Kidney failure: <15 mL/min/1.73sq m eGFR calculated using average adult body mass. Additional eGFR calculator available at: http://www.[employer] Mailing/Casmul_crcl_2011.htm Glucose [Mass/Vol] 106 mg/dL High 70 - 99 mg/dL [facility] Glucose [Mass/Vol] 122 mg/dL High 70 - 99 mg/dL [facility] Interpretation and review of laboratory results Abnormal [facility] Potassium [Moles/Vol] 4.6 mmol/L 3.7 - 5.3 mmol/L [facility] Potassium [Moles/Vol] 5.0 mmol/L 3.7 - 5.3 mmol/L [facility] Sodium [Moles/Vol] 141 mmol/L 135 - 144 mmol/L [facility] Sodium [Moles/Vol] 142 mmol/L 135 - 144 mmol/L [facility] Urea nitrogen (BldV) [Mass/Vol] 63 mg/dL High 8 - 23 mg/dL [facility] Urea nitrogen (BldV) [Mass/Vol] 55 mg/dL High 8 - 23 mg/dL [facility] CBC with Auto Differentialon 01-02-2022 Absolute Eos # 0.12 [facility] Absolute Immature Granulocyte 0.00 [facility] Absolute Lymph # 0.37 Low [facility] Absolute [place] # 0.49 [facility] Basophils (Bld) [#/Vol] 0.00 10*3/uL [facility] Basophils/100 WBC (Bld) 0 % 0 - 2 % [facility] Eosinophils/100 WBC (Bld) 1 % 1 - 4 % [facility] Immature granulocytes/100 WBC (Bld) 0 % 0 [facility] Interpretation and review of laboratory results Abnormal [facility] Lymphocytes/100 WBC (Bld) 3 % Low 24 - 44 % [facility] Monocytes/100 WBC (Bld) 4 % 1 - 7 % [facility] Morphology Gordon (Bld) [Interp] Normal [facility] NRBC Automated 0.0 0.0 per 100 WBC [facility] Platelet distribution width (Bld) [Ratio] 14.4 % 11.8 - 14.4 % [facility] Segmented neutrophils/100 WBC (Bld) 92 % High 36 - 66 % [facility] Segs Absolute 11.22 High [facility] CBC with Diffon 01-02-2022 Abs. Basophil 0.00 k/uL Normal 0.0-0.2 [facility] Comment on above: Performed By: #### L ACDS #### [facility] [employer] [address] [place] [phone] Events Associate: Ronn Arias MD Abs.Imm.Granulocyte 0.00 k/uL Normal 0.00-0.30 [facility] Comment on above: Performed By: #### L ACDS #### [facility] [address] [place] [phone] Events Associate: Ronn Arias MD Abs.Neutrophil (Seg) 11.22 k/uL High 1.8-7.7 [facility] Comment on above: Performed By: #### L ACDS #### [facility] [address] [place] [phone] Events Associate: Ronn Arias MD Basophils/100 WBC (Bld) 0 % Normal 0-2 [facility] Comment on above: Performed By: #### L ACDS #### [facility] [employer] [address] [place] [phone] Events Associate: Ronn Arias MD Eosinophils (Bld) [#/Vol] 0.12 10*3/uL Normal 0.0-0.4 [facility] Comment on above: Performed By: #### L ACDS #### [address] [address] Events Associate: Ronn Arias MD Eosinophils/100 WBC (Bld) 1 % Normal 1-4 [facility] Comment on above: Performed By: #### L ACDS #### [place] [address] Events Associate: Ronn Arias MD Erythrocyte distribution width (RBC) [Ratio] 14.4 % Normal 11.8-14.4 [facility] Comment on above: Performed By: #### L ACDS #### [place] [address] Events Associate: Ronn Arias MD Hematocrit (Bld) [Volume fraction] 30.4 % Low 40.7-50.3 [facility] Comment on above: Performed By: #### L ACDS #### [place] [address] Events Associate: Ronn Arias MD Hemoglobin (Bld) [Mass/Vol] 10.2 g/dL Low 13.0-17.0 [facility] Comment on above: Performed By: #### L ACDS #### [place] [address] Events Associate: Ronn Arias MD Immature granulocytes/100 WBC (Bld) 0 % Normal 0 [facility] Comment on above: Performed By: #### L ACDS #### [place] [address] Events Associate: Ronn Arias MD Lymphocytes (Bld) [#/Vol] 0.37 10*3/uL Low 1.0-4.8 [facility] Comment on above: Performed By: #### L ACDS #### [address] [address] Events Associate: Ronn Arias MD Lymphocytes/100 WBC (Bld) 3 % Low 24-44 [facility] Comment on above: Performed By: #### L ACDS #### [address] [address] Events Associate: Ronn Arias MD MCH (RBC) [Entitic mass] 28.0 pg Normal 25.2-33.5 [facility] Comment on above: Performed By: #### L ACDS #### [address] [address] Events Associate: Ronn Arias MD MCHC (RBC) [Mass/Vol] 33.6 g/dL Normal 28.4-34.8 [facility] Comment on above: Performed By: #### L ACDS #### [address] [address] Events Associate: Ronn Arias MD MCV (RBC) [Entitic vol] 83.5 fL Normal 82.6-102.9 [facility] Comment on above: Performed By: #### L ACDS #### [address] [address] Events Associate: Ronn Arias MD Monocytes (Bld) [#/Vol] 0.49 10*3/uL Normal 0.1-0.8 [facility] Comment on above: Performed By: #### L ACDS #### [address] [address] Events Associate: Ronn Arias MD Monocytes/100 WBC (Bld) 4 % Normal 1-7 [facility] Comment on above: Performed By: #### L ACDS #### [address] [address] Events Associate: Ronn Arias MD Morphology Gordon (Bld) [Interp] Normal Normal [facility] Comment on above: Performed By: #### L ACDS #### [address] [address] Events Associate: Ronn Arias MD Neutrophil (Seg) 92 % High 36-66 [facility] Comment on above: Performed By: #### L ACDS #### [place] [address] Events Associate: Ronn Arias MD NRBC Automated 0.0 per 100 WBC Normal 0.0 [facility] Comment on above: Performed By: #### L ACDS #### [place] [address] Events Associate: Ronn Arias MD Platelet mean volume (Bld) [Entitic vol] 10.3 fL Normal 8.1-13.5 [facility] Comment on above: Performed By: #### L ACDS #### [place] [address] Events Associate: Ronn Arias MD Platelets (Bld) [#/Vol] 150 10*3/uL Normal 138-453 [facility] Comment on above: Performed By: #### L ACDS #### [place] [address] Events Associate: Ronn Arias MD RBC (Bld) [#/Vol] 3.64 10*6/uL Low 4.21-5.77 [facility] Comment on above: Performed By: #### L ACDS #### [address] [address] Events Associate: Ronn Arias MD WBC (Bld) [#/Vol] 12.2 10*3/uL High 3.5-11.3 [facility] Comment on above: Performed By: #### L ACDS #### [facility] [address] [place] [address] Events Associate: Ronn Arias MD Cult,Urineon 01-02-2022 Cult,Urine Specimen Description .URINE Culture NO GROWTH Report Status FINAL 01/02/2022 Normal [facility] Comment on above: Performed By: #### U RNA, URTPRT, UMICAO, UEOS, UA #### [facility] [address] [place] [address] Events Associate: Ronn Arias MD Culture, Urineon 01-02-2022 Bacteria identified Cx Nom (U) NO GROWTH [facility] Specimen Description .URINE [facility] Hepatic Function Panelon Albumin [Mass/Vol] 2.9 g/dL Low 3.5 - 5.2 g/dL [facility] Albumin/Globulin [Mass ratio] 0.9 {ratio} Low 1 - 2.5 [facility] ALP (Bld) [Catalytic activity/Vol] 96 U/L 40 - 129 U/L [facility] ALT [Catalytic activity/Vol] 123 U/L High 5 - 41 U/L [facility] AST [Catalytic activity/Vol] 50 U/L High NINF - 40 U/L [facility] Bilirubin [Mass/Vol] 1.8 mg/dL High 0.3 - 1 .2 mg/dL [facility] Bilirubin, Indirect 0.7 mg/dL 0 - 1 mg/dL [facility] Bilirubin.indirect [Mass/Vol] 1.1 mg/dL High NINF - 0.31 mg/dL [facility] Free PSA/Total PSA [Mass fraction] 6.1 g/dL Low 6.4 - 8.3 g/dL [facility] Lactate, Sepsison 01-02-2022 Lactic Acid, Sepsis, Whole Blood 0.9 mmol/L 0.5 - 1.9 mmol/L [facility] Lactic Acid, Sepsis, Whole Blood 1.0 mmol/L 0.5 - 1.9 mmol/L [facility] Lactic Acid, Sepsis, Whole Blood 1.3 mmol/L 0.5 - 1.9 mmol/L [facility] Lactic Acid, Sepsis, Whole Blood 1.2 mmol/L 0.5 - 1.9 mmol/L [facility] Lactic Acid,Sep Wbld 0.9 mmol/L Normal 0.5-1.9 [facility] Comment on above: Performed By: #### U RNA, URTPRT, UMICAO, UEOS, UA #### [facility] [place], [place] [phone] Events Associate: Ronn Arias MD Lactic Acid,Sep Wbld 1.0 mmol/L Normal 0.5-1.9 [facility] Comment on above: Performed By: #### U RNA, URTPRT, UMICAO, UEOS, UA #### [facility] [address] [place] [address] [phone] Events Associate: Ronn Arias MD Lactic Acid,Sep Wbld 1.3 mmol/L Normal 0.5-1.9 [facility] Comment on above: Performed By: #### U RNA, URTPRT, UMICAO, UEOS, UA #### [facility] [address] [place] [address] [phone] Events Associate: Ronn Arias MD [facility] Lipaseon 01-02-2022 Lipase [Catalytic activity/Vol] 1280 U/L High 13 - 60 U/L [facility] Lipase [Catalytic activity/Vol] 1280 U/L High 13-60 [facility] Comment on above: Performed By: #### L IVP, BMPX, LIP, CDP #### [facility] [address] [place] [address] Events Associate: Ronn Arias MD Liver Profileon 01-02-2022 Albumin [Mass/Vol] 2.9 g/dL Low 3.5-5.2 [facility] Comment on above: Performed By: #### L IVP, BMPX, LIP, CDP #### [facility] [address] [place] [address] Events Associate: Ronn Arias MD Albumin/Glob Ratio 0.9 Low 1.0-2.5 [facility] Comment on above: Performed By: #### L IVP, BMPX, LIP, CDP #### [facility] [address] [place] [phone] Events Associate: Ronn Arias MD Alkaline Phos 96 U/L Normal 40-129 [facility] Comment on above: Performed By: #### L IVP, BMPX, LIP, CDP #### [facility] [address] [place] [phone] Events Associate: Ronn Arias MD ALT [Catalytic activity/Vol] 123 U/L High 5-41 [facility] Comment on above: Performed By: #### L IVP, BMPX, LIP, CDP #### [facility] [address] [place] [address] Events Associate: Ronn Arias MD AST [Catalytic activity/Vol] 50 U/L High <40 [facility] Comment on above: Performed By: #### L IVP, BMPX, LIP, CDP #### [facility] [address] [place] [address] Events Associate: Ronn Arias MD Bilirubin [Mass/Vol] 1.8 mg/dL High 0.3-1.2 [facility] Comment on above: Performed By: #### L IVP, BMPX, LIP, CDP #### [facility] [address] [place] [address] Events Associate: Ronn Arias MD Bilirubin, Indirect 0.7 mg/dL Normal 0.00-1.00 [facility] Comment on above: Performed By: #### L IVP, BMPX, LIP, CDP #### [facility] [address] [place] [address] Events Associate: Ronn Arias MD Bilirubin.indirect [Mass/Vol] 1.1 mg/dL High <0.31 [facility] Comment on above: Performed By: #### L IVP, BMPX, LIP, CDP #### [facility] [address] [place], [place] [phone] Events Associate: Ronn Arias MD Protein [Mass/Vol] 6.1 g/dL Low 6.4-8.3 [facility] Comment on above: Performed By: #### L IVP, BMPX, LIP, CDP #### [facility] [address] [place] [address] Events Associate: Ronn Arias MD No Panel Informationon 01-02 Interpretation and review of laboratory results Abnormal [facility] Protein,Tot,[place] Uron 2021 Tot Prot. Conc. 59 mg/dL Normal [facility] Comment on above: Result Comment: No n ormal range established. Performed By: #### U RNA, URTPRT, UMICAO, UEOS, UA #### [facility] [address] [place], [place] [phone] Events Associate: Ronn Arias MD Surgical Pathologyon 022 Surgical [...] two black choleliths, each measuring 0.5 cm. Loss Control Engineer sections 1c to include cystic duct margin (inked blue), fundus, body and neck. tm Microscopic Description Microscopic examination performed. SURGICAL PATHOLOGY CONSULTATION Patient Name: YOLI ANTUNEZ [facility] Rec: [id number] Path Number: [id number] [facility] ANATOMIC PATHOLOGY [address] [place] [phone] Normal [facility] Comment on above: Performed By: #### L ACDS #### [employer] [address] [place] [address] [phone] Events Associate: Ronn Arias MD US RENAL LIMITEDon 2 Radiology Study observation (narrative) [facility] [employer] Work Phone: US RENAL LIMITED EXAMINATION: ULTRASOUND OF THE [...] Naif Bean MD 01/02/22 Final result Normal [facility] Unremarkable renal ultrasound. No hydronephrosis. [facility] RIS [...] Gross preservation of the bilateral corticomedullary differentiation. [facility] Naif Mckeon MD - 01/02/2022 EXAMINATION: ULTRASOUND OF THE [...] differentiation. IMPRESSION: Unremarkable renal ultrasound. No hydronephrosis. [facility] Work Phone: RENAL LIMITEDOrdered By: Naif Bean on 01-02-2022 [facility] Work Phone: Basic Metabolic Panelon 12-21 Anion gap [Moles/Vol] 14 mmol/L 9 - 17 mmol/L [facility] Calcium [Mass/Vol] 6.4 mg/dL Low 8.6 - 10. 4 mg/dL [facility] Chloride [Moles/Vol] 106 mmol/L 98 - 10 7 mmol/L [facility] CO2 [Moles/Vol] 19 mmol/L Low 20 - 31 mmol/L [facility] Creatinine [Mass/Vol] 3.73 mg/dL High 0.7 - 1.2 mg/dL [facility] Comment on above: ICTERIC SPECIMEN GFR 20 mL/min Low 60 - PI NF mL/min [facility] GFR Non- 16 mL/min Low 60 - PINF mL/min [facility] GFR/1.73 sq M.predicted MDRD (S/P/Bld) [Vol rate/Area] [facility] Comment on above: Average GFR for 60-6 9 years old: 85 mL/min/1.73sq m Chronic Kidney Disease: <60 mL/min/1.73sq m Kidney failure: <15 mL/min/1.73sq m eGFR calculated using average adult body mass. Additional eGFR calculator available at: http://www.[employer] M[employer]/Casmul_crcl_2011.htm Glucose [Mass/Vol] 114 mg/dL High 70 - 99 mg/dL [facility] Potassium [Moles/Vol] 4.4 mmol/L 3.7 - 5.3 mmol/L [facility] Sodium [Moles/Vol] 139 mmol/L 135 - 144 mmol/L [facility] Urea nitrogen (BldV) [Mass/Vol] 58 mg/dL High 8 - 23 mg/dL [facility] Basic Metabolic Profon 01-01 (cont.) Normal [facility] Comment on above: Result Comment: Aver age GFR for 60-69 years old: 85 mL/min/1.73sq m Chronic Kidney Disease: <60 mL/min/1.73sq m Kidney failure: <15 mL/min/1.73sq m eGFR calculated using average adult body mass. Additional eGFR calculator available at: http://www.[employer] M[employer]/multiple_crcl_2012.htm Performed By: #### U RNA, URTPRT, UMICAO, UEOS, UA #### [employer] [address] [place] [address] Events Associate: Ronn Arias MD Anion gap [Moles/Vol] 14 mmol/L Normal - [facility] Comment on above: Performed By: #### U RNA, URTPRT, UMICAO, UEOS, UA #### [facility] [address] [place] [address] Events Associate: Ronn Arias MD Calcium [Mass/Vol] 6.4 mg/dL Low 8.6-10.4 [facility] Comment on above: Performed By: #### U RNA, URTPRT, UMICAO, UEOS, UA #### [facility] [address] [place] [phone] Events Associate: Ronn Arias MD Chloride [Moles/Vol] 106 mmol/L Normal 98-107 [facility] Comment on above: Performed By: #### U RNA, URTPRT, UMICAO, UEOS, UA #### [facility] [address] [place] [address] Events Associate: Ronn Arias MD CO2 [Moles/Vol] 19 mmol/L Low 20-31 [facility] Comment on above: Performed By: #### U RNA, URTPRT, UMICAO, UEOS, UA #### [facility] [address] [place] [address] Events Associate: Ronn Arias MD Creatinine [Mass/Vol] 3.73 mg/dL High 0.70-1.20 [facility] Comment on above: Result Comment: ICT[employer] JAYDON SPECIMEN Performed By: #### U RNA, URTPRT, UMICAO, UEOS, UA #### [facility] [address] [place] [phone] Events Associate: Ronn Arias MD GFR, Amer 20 mL/min Low >60 [facility] Comment on above: Performed By: #### U RNA, URTPRT, UMICAO, UEOS, UA #### [facility] [address] [place] [phone] Events Associate: Ronn Arias MD GFR,non Amer 16 mL/min Low >60 [facility] Comment on above: Performed By: #### U RNA, URTPRT, UMICAO, UEOS, UA #### [employer] [address] [place] [address] Events Associate: Ronn Arias MD Glucose [Mass/Vol] 114 mg/dL High 70-99 [facility] Comment on above: Performed By: #### U RNA, URTPRT, UMICAO, UEOS, UA #### [employer] [address] [place] [address] Events Associate: Ronn Arias MD Potassium [Moles/Vol] 4.4 mmol/L Normal 3.7-5.3 [facility] Comment on above: Performed By: #### U RNA, URTPRT, UMICAO, UEOS, UA #### [facility] [address] [place] [address] Events Associate: Ronn Arias MD Sodium [Moles/Vol] 139 mmol/L Normal 135-144 [facility] Comment on above: Performed By: #### U RNA, URTPRT, UMICAO, UEOS, UA #### [facility] [address] [place] [address] Events Associate: Ronn Arias MD Urea nitrogen [Mass/Vol] 58 mg/dL High 8-23 [facility] Comment on above: Performed By: #### U RNA, URTPRT, UMICAO, UEOS, UA #### [facility] [address] [place] [address] Events Associate: Ronn Arias MD CBCon 01-01-2022 Erythrocyte distribution width (RBC) [Ratio] 14.5 % High 11.8-14.4 [facility] Comment on above: Performed By: #### U RNA, URTPRT, UMICAO, UEOS, UA #### [employer] [facility] [place], [place] [phone] Events Associate: Ronn Arias MD Hematocrit (Bld) [Volume fraction] 30.0 % Low 40.7 - 50.3 % [facility] Hematocrit (Bld) [Volume fraction] 30.0 % Low 40.7-50.3 [facility] Comment on above: Performed By: #### U RNA, URTPRT, UMICAO, UEOS, UA #### [facility] [address] [place] [address] [phone] Events Associate: Ronn Arias MD Hemoglobin (Bld) [Mass/Vol] 10.0 g/dL Low 13 - 17 g/dL [facility] Hemoglobin (Bld) [Mass/Vol] 10.0 g/dL Low 13.0-17.0 [facility] Comment on above: Performed By: #### U RNA, URTPRT, UMICAO, UEOS, UA #### [facility] [address] [place] [address] [phone] Events Associate: Ronn Arias MD MCH (RBC) [Entitic mass] 28.2 pg 25.2 - 33.5 pg [facility] MCH (RBC) [Entitic mass] 28.2 pg Normal 25.2-33.5 [facility] Comment on above: Performed By: #### U RNA, URTPRT, UMICAO, UEOS, UA #### [facility] [address] [place] [address] [phone] Events Associate: Ronn Arias MD MCHC (RBC) [Mass/Vol] 33.3 g/dL 28.4 - 34.8 g/dL [facility] MCHC (RBC) [Mass/Vol] 33.3 g/dL Normal 28.4-34.8 [facility] Comment on above: Performed By: #### U RNA, URTPRT, UMICAO, UEOS, UA #### [employer] [address] [place] [address] [phone] Events Associate: Ronn Arias MD MCV (RBC) [Entitic vol] 84.7 fL 82.6 - 102.9 fL [facility] MCV (RBC) [Entitic vol] 84.7 fL Normal 82.6-102.9 [facility] Comment on above: Performed By: #### U RNA, URTPRT, UMICAO, UEOS, UA #### [employer] [address] [place] [address] [phone] Events Associate: Ronn Arias MD NRBC Automated 0.0 0.0 per 100 WBC [facility] NRBC Automated 0.0 per 100 WBC Normal 0.0 [facility] Comment on above: Performed By: #### U RNA, URTPRT, UMICAO, UEOS, UA #### [employer] [address] [place] [phone] Events Associate: Ronn Arias MD Platelet distribution width (Bld) [Ratio] 14.5 % High 11.8 - 14.4 % [facility] Platelet mean volume (Bld) [Entitic vol] 11.0 fL 8.1 - 13.5 fL [facility] Platelet mean volume (Bld) [Entitic vol] 11.0 fL Normal 8.1-13.5 [facility] Comment on above: Performed By: #### U RNA, URTPRT, UMICAO, UEOS, UA #### [employer] [address] [place] [phone] Events Associate: Ronn Arias MD Platelets (Bld) [#/Vol] 157 10*3/uL [facility] [employer] Platelets (Bld) [#/Vol] 157 10*3/uL Normal 138-453 [facility] Comment on above: Performed By: #### U RNA, URTPRT, UMICAO, UEOS, UA #### [employer] [address] [place] [address] [phone] Events Associate: Ronn Arias MD RBC (Bld) [#/Vol] 3.54 10*6/uL Low 4.21 - 5.77 m/uL [facility] RBC (Bld) [#/Vol] 3.54 10*6/uL Low 4.21-5.77 [facility] Comment on above: Performed By: #### U RNA, URTPRT, UMICAO, UEOS, UA #### [facility] [address] [place], [place] [phone] Events Associate: Ronn Arias MD WBC (Bld) [#/Vol] 16.8 10*3/uL High [facility] WBC (Bld) [#/Vol] 16.8 10*3/uL High 3.5-11.3 [facility] Comment on above: Performed By: #### U RNA, URTPRT, UMICAO, UEOS, UA #### [employer] [address] [place], [place] [phone] Events Associate: Ronn Arias MD Calcium, [employer]icon 01-01-2022 Calcium [Moles/Vol] 0.95 mmol/L Low 1.13-1.33 [facility] Comment on above: Performed By: #### U RNA, URTPRT, UMICAO, UEOS, UA #### [employer] [address] [place] [address] [phone] Events Associate: Ronn Arias MD Calcium, Ionizedon Calcium, Ionized 0.95 mmol/L Low 1.13 - 1.33 mmol/L [facility] [employer] Comp Metabolic Pr/rfx MGon 0 01-01-2022 (cont.) Normal [facility] Comment on above: Result Comment: Aver age GFR for 60-69 years old: 85 mL/min/1.73sq m Chronic Kidney Disease: <60 mL/min/1.73sq m Kidney failure: <15 mL/min/1.73sq m eGFR calculated using average adult body mass. Additional eGFR calculator available at: http://www.[place] M[employer]/multiple_crcl_2012.htm Performed By: #### U RNA, URTPRT, UMICAO, UEOS, UA #### [facility] [address] [place] [phone] Events Associate: Ronn Arias MD (cont.) [facility] Comment on above: Result Comment: Aver age GFR for 60-69 years old: 85 mL/min/1.73sq m Chronic Kidney Disease: <60 mL/min/1.73sq m Kidney failure: <15 mL/min/1.73sq m eGFR calculated using average adult body mass. Additional eGFR calculator available at: http://www.[place] M[employer]/multiple_crcl_2012.htm Performed By: #### U RNA, URTPRT, UMICAO, UEOS, UA #### [facility] [address] [place] [phone] Events Associate: Ronn Arias MD Albumin [Mass/Vol] 3.0 g/dL Low 3.5-5.2 [facility] Comment on above: Performed By: #### U RNA, URTPRT, UMICAO, UEOS, UA #### [facility] [address] [place] [address] Events Associate: Ronn Arias MD Albumin [Mass/Vol] 3.2 g/dL Low 3.5-5.2 [facility] Comment on above: Performed By: #### U RNA, URTPRT, UMICAO, UEOS, UA #### [facility] [address] [place] [address] Events Associate: Ronn Arias MD Albumin/Glob Ratio 1.2 Normal 1.0-2.5 [facility] Comment on above: Performed By: #### U RNA, URTPRT, UMICAO, UEOS, UA #### [facility] [address] [place] [address] [place] [address] Events Associate: Ronn Arias MD Albumin/Glob Ratio 1.2 Normal 1.0-2.5 [facility] Comment on above: Performed By: #### U RNA, URTPRT, UMICAO, UEOS, UA #### [facility] [address] [place] [address] 48304 Events Associate: Ronn Arias MD Alkaline Phos 98 U/L Normal 40-129 [facility] Comment on above: Performed By: #### U RNA, URTPRT, UMICAO, UEOS, UA #### [facility] [address] [place] [address] 98755 Events Associate: Ronn Arias MD Alkaline Phos 101 U/L Normal 40-129 [facility] Comment on above: Performed By: #### U RNA, URTPRT, UMICAO, UEOS, UA #### [facility] [address] [place] [address] 35388 Events Associate: Ronn Arias MD ALT [Catalytic activity/Vol] 191 U/L High 5-41 [facility] Comment on above: Performed By: #### U RNA, URTPRT, UMICAO, UEOS, UA #### [facility] [address] [place] [address] 59988 Events Associate: Ronn Arias MD ALT [Catalytic activity/Vol] 185 U/L High 5-41 [facility] Comment on above: Performed By: #### U RNA, URTPRT, UMICAO, UEOS, UA #### [facility] [address] [place] [address] 44882 Events Associate: Ronn Arias MD Anion gap [Moles/Vol] 13 mmol/L Normal 9-17 [facility] Comment on above: Performed By: #### U RNA, URTPRT, UMICAO, UEOS, UA #### [facility] [address] [place] [address] Events Associate: Ronn Arias MD Anion gap [Moles/Vol] 12 mmol/L Normal 9-17 [facility] Comment on above: Performed By: #### U RNA, URTPRT, UMICAO, UEOS, UA #### [facility] [address] [place] [address] Events Associate: Ronn Arais MD AST [Catalytic activity/Vol] 112 U/L High <40 [facility] Comment on above: Performed By: #### U RNA, URTPRT, UMICAO, UEOS, UA #### [facility] [address] [place] [address]1981 Events Associate: Ronn Arias MD AST [Catalytic activity/Vol] 103 U/L High <40 [facility] Comment on above: Performed By: #### U RNA, URTPRT, UMICAO, UEOS, UA #### [facility] [address] [place] [address]19 Events Associate: Ronn Arias MD Bilirubin [Mass/Vol] 4.5 mg/dL High 0.3-1.2 [facility] Comment on above: Performed By: #### U RNA, URTPRT, UMICAO, UEOS, UA #### [facility] [address] [place] [address] 40807 Events Associate: Ronn Arias MD Bilirubin [Mass/Vol] 4.3 mg/dL High 0.3-1.2 [facility] Comment on above: Performed By: #### U RNA, URTPRT, UMICAO, UEOS, UA #### [facility] [address] [place] [address] Events Associate: Ronn Arias MD Calcium [Mass/Vol] 6.5 mg/dL Low 8.6-10.4 [facility] Comment on above: Performed By: #### U RNA, URTPRT, UMICAO, UEOS, UA #### [facility] [address] [place] [address]2003 Events Associate: Ronn Arias MD Calcium [Mass/Vol] 6.5 mg/dL Low 8.6-10.4 [facility] Comment on above: Performed By: #### U RNA, URTPRT, UMICAO, UEOS, UA #### [facility] [address] [place] [address] 75244 Events Associate: Ronn Arias MD Chloride [Moles/Vol] 109 mmol/L High 98-107 [facility] Comment on above: Performed By: #### U RNA, URTPRT, UMICAO, UEOS, UA #### [address] [address] Events Associate: Ronn Arias MD Chloride [Moles/Vol] 107 mmol/L Normal 98-107 [facility] Comment on above: Performed By: #### U RNA, URTPRT, UMICAO, UEOS, UA #### [address] [address] Events Associate: Ronn Arias MD CO2 [Moles/Vol] 18 mmol/L Low 20-31 [facility] Comment on above: Performed By: #### U RNA, URTPRT, UMICAO, UEOS, UA #### [facility] [address] [place] [address] 6[address]27 Events Associate: Ronn Arias MD CO2 [Moles/Vol] 19 mmol/L Low 20-31 [facility] Comment on above: Performed By: #### U RNA, URTPRT, UMICAO, UEOS, UA #### [facility] [address] [place] [address] 26070 Events Associate: Ronn Arias MD Creatinine [Mass/Vol] 3.86 mg/dL High 0.70-1.20 [facility] Comment on above: Result Comment: ICTE JAYDON SPECIMEN Performed By: #### U RNA, URTPRT, UMICAO, UEOS, UA #### [facility] [address] [place] [address] 11749 Events Associate: Ronn Arias MD Creatinine [Mass/Vol] 3.74 mg/dL High 0.70-1.20 [facility] Comment on above: Result Comment: ICTE JAYDON SPECIMEN Performed By: #### U RNA, URTPRT, UMICAO, UEOS, UA #### [facility] [address] [place] [address] 6[address]47 Events Associate: Ronn Arias MD GFR, Amer 19 mL/min Low >60 [facility] Comment on above: Performed By: #### U RNA, URTPRT, UMICAO, UEOS, UA #### [facility] [address] [place] [address] Events Associate: Ronn Arias MD GFR, Amer 20 mL/min Low >60 [facility] Comment on above: Performed By: #### U RNA, URTPRT, UMICAO, UEOS, UA #### [facility] [address] [place] [address] 12588 Events Associate: Ronn Arias MD GFR,non Amer 16 mL/min Low >60 [facility] Comment on above: Performed By: #### U RNA, URTPRT, UMICAO, UEOS, UA #### [facility] [address] [place] [address] 93897 Events Associate: Ronn Arias MD GFR,non Amer 16 mL/min Low >60 [facility] Comment on above: Performed By: #### U RNA, URTPRT, UMICAO, UEOS, UA #### [facility] [address] [place] [address] Events Associate: Ronn Arias MD Glucose [Mass/Vol] 106 mg/dL High 70-99 [facility] Comment on above: Performed By: #### U RNA, URTPRT, UMICAO, UEOS, UA #### [facility] [address] [place] [address] 28227 Events Associate: Ronn Arias MD Glucose [Mass/Vol] 109 mg/dL High 70-99 [facility] Comment on above: Performed By: #### U RNA, URTPRT, UMICAO, UEOS, UA #### [facility] [address] [place] [address] 11528 Events Associate: Ronn Arias MD Potassium [Moles/Vol] 4.5 mmol/L Normal 3.7-5.3 [facility] Comment on above: Performed By: #### U RNA, URTPRT, UMICAO, UEOS, UA #### [facility] [address] [place] [address] 21028 Events Associate: Ronn Arias MD Potassium [Moles/Vol] 4.4 mmol/L Normal 3.7-5.3 [facility] Comment on above: Performed By: #### U RNA, URTPRT, UMICAO, UEOS, UA #### [facility] [address] [place] [address] 51918 Events Associate: Ronn Arias MD Protein [Mass/Vol] 5.5 g/dL Low 6.4-8.3 [facility] Comment on above: Performed By: #### U RNA, URTPRT, UMICAO, UEOS, UA #### [facility] [address] [place] [address] 60490 Events Associate: Ronn Arias MD Protein [Mass/Vol] 5.8 g/dL Low 6.4-8.3 [facility] Comment on above: Performed By: #### U RNA, URTPRT, UMICAO, UEOS, UA #### [facility] [address] [place] [address] [phone] Events Associate: Ronn Arias MD Sodium [Moles/Vol] 140 mmol/L Normal 135-144 [facility] Comment on above: Performed By: #### U RNA, URTPRT, UMICAO, UEOS, UA #### [facility] [address] [place] [address] 43140 Events Associate: Ronn Arias MD Sodium [Moles/Vol] 138 mmol/L Normal 135-144 [facility] Comment on above: Performed By: #### U RNA, URTPRT, UMICAO, UEOS, UA #### [facility] [address] [place] [address] 82029 Events Associate: Ronn Arias MD Urea nitrogen [Mass/Vol] 59 mg/dL High 8-23 [facility] Comment on above: Performed By: #### U RNA, URTPRT, UMICAO, UEOS, UA #### [facility] [address] [place] [address] [phone] Events Associate: Ronn Arias MD Urea nitrogen [Mass/Vol] 59 mg/dL High 823 [facility] Comment on above: Performed By: #### U RNA, URTPRT, UMICAO, UEOS, UA #### [facility] [address] [place] [address] 91388 Events Associate: Ronn Arias MD Comprehensive Metabolic Pane l w/ Reflex to MGon 01-01-2022 Albumin [Mass/Vol] 3 g/dL Low 3.5 - 5.2 g/dL [facility] Albumin [Mass/Vol] 3.2 g/dL Low 3.5 - 5.2 g/dL [facility] Albumin/Globulin [Mass ratio] 1.2 {ratio} 1 - 2.5 [facility] Albumin/Globulin [Mass ratio] 1.2 {ratio} 1 - 2.5 [facility] ALP (Bld) [Catalytic activity/Vol] 98 U/L 40 - 129 U/L [facility] ALP (Bld) [Catalytic activity/Vol] 101 U/L 40 - 129 U/L [facility] ALT [Catalytic activity/Vol] 191 U/L High 5 - 41 U/L [facility] ALT [Catalytic activity/Vol] 185 U/L High 5 - 41 U/L [facility] Anion gap [Moles/Vol] 13 mmol/L 9 - 17 mmol/L [facility] Anion gap [Moles/Vol] 12 mmol/L 9 - 17 mmol/L [facility] AST [Catalytic activity/Vol] 112 U/L High NINF - 40 U/L [facility] AST [Catalytic activity/Vol] 103 U/L High NINF - 40 U/L [facility] Bilirubin [Mass/Vol] 4.5 mg/dL High 0.3 - 1 .2 mg/dL [facility] Bilirubin [Mass/Vol] 4.3 mg/dL High 0.3 - 1 .2 mg/dL [facility] Calcium [Mass/Vol] 6.5 mg/dL Low 8.6 - 10. 4 mg/dL [facility] Chloride [Moles/Vol] 109 mmol/L High 98 - 10 7 mmol/L [facility] Chloride [Moles/Vol] 107 mmol/L 98 - 10 7 mmol/L [facility] CO2 [Moles/Vol] 18 mmol/L Low 20 - 31 mmol/L [facility] CO2 [Moles/Vol] 19 mmol/L Low 20 - 31 mmol/L [facility] Creatinine [Mass/Vol] 3.86 mg/dL High 0.7 - 1.2 mg/dL [facility] Comment on above: ICTERIC SPECIMEN Creatinine [Mass/Vol] 3.74 mg/dL High 0.7 - 1.2 mg/dL [facility] Comment on above: I[employer]ER[employer] SPECIMEN Free PSA/Total PSA [Mass fraction] 5.5 g/dL Low 6.4 - 8.3 g/dL [facility] Free PSA/Total PSA [Mass fraction] 5.8 g/dL Low 6.4 - 8.3 g/dL [facility] GFR 19 mL/min Low 60 - PI NF mL/min [facility] [employer] GFR 20 mL/min Low 60 - PI NF mL/min [employer] [facility] GFR Non- 16 mL/min Low 60 - PINF mL/min [facility] [employer] GFR Non- 16 mL/min Low 60 - PINF mL/min [employer] [facility] GFR/1.73 sq M.predicted MDRD (S/P/Bld) [Vol rate/Area] [facility] Comment on above: Average GFR for 60-6 9 years old: 85 mL/min/1.73sq m Chronic Kidney Disease: <60 mL/min/1.73sq m Kidney failure: <15 mL/min/1.73sq m eGFR calculated using average adult body mass. Additional eGFR calculator available at: http://www.[place] [employer]/Casmul_crcl_2012.htm GFR/1.73 sq M.predicted MDRD (S/P/Bld) [Vol rate/Area] [facility] Comment on above: Average GFR for 60-6 9 years old: 85 mL/min/1.73sq m Chronic Kidney Disease: <60 mL/min/1.73sq m Kidney failure: <15 mL/min/1.73sq m eGFR calculated using average adult body mass. Additional eGFR calculator available at: http://www.[place] [employer]/Casmul_crcl_2012.htm Glucose [Mass/Vol] 106 mg/dL High 70 - 99 mg/dL [facility] Glucose [Mass/Vol] 109 mg/dL High 70 - 99 mg/dL [facility] Potassium [Moles/Vol] 4.5 mmol/L 3.7 - 5.3 mmol/L [facility] Potassium [Moles/Vol] 4.4 mmol/L 3.7 - 5.3 mmol/L [facility] Sodium [Moles/Vol] 140 mmol/L 135 - 144 mmol/L [facility] Sodium [Moles/Vol] 138 mmol/L 135 - 144 mmol/L [facility] Urea nitrogen (BldV) [Mass/Vol] 59 mg/dL High 8 - 23 mg/dL [facility] Urea nitrogen (BldV) [Mass/Vol] 59 mg/dL High 8 - 23 mg/dL [facility] Differentialon 01-01-2022 Abs. Basophil 0.03 k/uL Normal 0.00-0.20 [facility] Comment on above: Performed By: #### U RNA, URTPRT, UMICAO, UEOS, UA #### [facility] [address] [place] [address] Events Associate: Ronn Arias MD Abs.Imm.Granulocyte 0.10 k/uL Normal 0.00-0.30 [facility] Comment on above: Performed By: #### U RNA, URTPRT, UMICAO, UEOS, UA #### [facility] [address] [place] [address] Events Associate: Ronn Arias MD Abs.Neutrophil (Seg) 14.48 k/uL High 1.50-8.10 [facility] Comment on above: Performed By: #### U RNA, URTPRT, UMICAO, UEOS, UA #### [employer] [address] [place] [address] Events Associate: Ronn Arias MD Absolute Eos # 0.06 [facility] Absolute Immature Granulocyte 0.10 [facility] Absolute Lymph # 0.87 Low [facility] Absolute [place] # 1.28 High [facility] Basophils (Bld) [#/Vol] 0.03 10*3/uL [facility] Basophils/100 WBC (Bld) 0 % 0 - 2 % [facility] Basophils/100 WBC (Bld) 0 % Normal 0-2 [facility] Comment on above: Performed By: #### U RNA, URTPRT, UMICAO, UEOS, UA #### [facility] [place] [address] Events Associate: Ronn Arias MD Eosinophils (Bld) [#/Vol] 0.06 10*3/uL Normal 0.00-0.44 [facility] Comment on above: Performed By: #### U RNA, URTPRT, UMICAO, UEOS, UA #### [facility] [address] [place] [address] 15636 Events Associate: Ronn Arias MD Eosinophils/100 WBC (Bld) 0 % Low 1 - 4 % [facility] Eosinophils/100 WBC (Bld) 0 % Low 1-4 [facility] Comment on above: Performed By: #### U RNA, URTPRT, UMICAO, UEOS, UA #### [facility] [address] [place] [address] Events Associate: Ronn Arias MD Immature granulocytes/100 WBC (Bld) 1 % High 0 [facility] Immature granulocytes/100 WBC (Bld) 1 % High 0 [facility] Comment on above: Performed By: #### U RNA, URTPRT, UMICAO, UEOS, UA #### [facility] [address] [place] [address]842 Events Associate: Ronn Arias MD Lymphocytes (Bld) [#/Vol] 0.87 10*3/uL Low 1.10-3.70 [facility] Comment on above: Performed By: #### U RNA, URTPRT, UMICAO, UEOS, UA #### [facility] [address] [place] [address] 68478 Events Associate: Ronn Arias MD Lymphocytes/100 WBC (Bld) 5 % Low 24 - 43 % [facility] Lymphocytes/100 WBC (Bld) 5 % Low 24-43 [facility] Comment on above: Performed By: #### U RNA, URTPRT, UMICAO, UEOS, UA #### [facility] [address] [place] [address] Events Associate: Ronn Arias MD Monocytes (Bld) [#/Vol] 1.28 10*3/uL High 0.10-1.20 [facility] Comment on above: Performed By: #### U RNA, URTPRT, UMICAO, UEOS, UA #### [facility] [address] [place] [address] Events Associate: Ronn Arias MD Monocytes/100 WBC (Bld) 8 % 3 - 12 % [facility] Monocytes/100 WBC (Bld) 8 % Normal 3-12 [facility] Comment on above: Performed By: #### U RNA, URTPRT, UMICAO, UEOS, UA #### [facility] [address] [place] [address] 51873 Events Associate: Ronn Arias MD Neutrophil (Seg) 86 % High 36-65 [facility] Comment on above: Performed By: #### U RNA, URTPRT, UMICAO, UEOS, UA #### [facility] [address] [place] [address]14 Events Associate: Ronn Arias MD RBC (Bld) [#/Vol] ANISOCYTOSIS PRESENT [facility] RBC morphology finding Nom (Bld) ANISOCYTOSIS PRESENT Normal [facility] Comment on above: Performed By: #### U RNA, URTPRT, UMICAO, UEOS, UA #### [facility] [address] [place] [address] Events Associate: Ronn Arias MD Segmented neutrophils/100 WBC (Bld) 86 % High 36 - 65 % [facility] Segs Absolute 14.48 High [facility] Hemoglobin A1Con 01-01-2022 Glucose [Mass/Vol] 117 mg/dL [facility] Comment on above: The ADA and AACC rec ommend providing the estimated average glucose result to permit better patient understanding of their HBA1c result. Glucose [Mass/Vol] 117 mg/dL Normal [facility] Comment on above: Result Comment: The ADA and AACC recommend providing the estimated average glucose result to permit better patient understanding of their HBA1c result. Performed By: #### U RNA, URTPRT, UMICAO, UEOS, UA #### [facility] [address], [place] [phone] Events Associate: Ronn Arias MD HbA1c (Bld) [Mass fraction] 5.7 % 4 - 6 % [facility] HbA1c (Bld) [Mass fraction] 5.7 % Normal 4.0-6.0 [facility] Comment on above: Performed By: #### U RNA, URTPRT, UMICAO, UEOS, UA #### [facility] [address], [place] [id number] Events Associate: Ronn Arias MD Hepatic Function Panelon Albumin [Mass/Vol] 3.2 g/dL Low 3.5 - 5.2 g/dL [facility] Albumin/Globulin [Mass ratio] 1.3 {ratio} 1 - 2.5 [facility] ALP (Bld) [Catalytic activity/Vol] 98 U/L 40 - 129 U/L [facility] ALT [Catalytic activity/Vol] 202 U/L High 5 - 41 U/L [facility] AST [Catalytic activity/Vol] 117 U/L High NINF - 40 U/L [facility] Bilirubin [Mass/Vol] 4.4 mg/dL High 0.3 - 1 .2 mg/dL [facility] [employer] Bilirubin, Indirect 0.3 mg/dL 0 - 1 mg/dL [facility] Bilirubin.indirect [Mass/Vol] 4.1 mg/dL High NINF - 0.31 mg/dL [facility] Free PSA/Total PSA [Mass fraction] 5.6 g/dL Low 6.4 - 8.3 g/dL [facility] Lactate Dehydrogenaseon 12-21 LD 214 U/L 135 - 225 U/L [facility] LDH [Catalytic activity/Vol] 214 U/L Normal 135-225 [facility] Comment on above: Performed By: #### U RNA, URTPRT, UMICAO, UEOS, UA #### [facility] [address] [place] [address] Events Associate: Ronn Arias MD [facility] Lactate, Sepsison 01-01-2022 Lactic Acid, Sepsis, Whole Blood 1.3 mmol/L 0.5 - 1.9 mmol/L [facility] Lactic Acid, Sepsis, Whole Blood 0.9 mmol/L 0.5 - 1.9 mmol/L [facility] Lactic Acid, Sepsis, Whole Blood 1.3 mmol/L 0.5 - 1.9 mmol/L [facility] Lactic Acid, Sepsis, Whole Blood 1.2 mmol/L 0.5 - 1.9 mmol/L [facility] Lactic Acid,Sep Wbld 1.3 mmol/L Normal 0.5-1.9 [facility] Comment on above: Performed By: #### U RNA, URTPRT, UMICAO, UEOS, UA #### [facility] [address] [place] [phone] Events Associate: Ronn Arias MD Lactic Acid,Sep Wbld 0.9 mmol/L Normal 0.5-1.9 [facility] Comment on above: Performed By: #### U RNA, URTPRT, UMICAO, UEOS, UA #### [facility] [address] [place] [address] Events Associate: Ronn Arias MD Lactic Acid,Sep Wbld 1.3 mmol/L Normal 0.5-1.9 [facility] Comment on above: Performed By: #### U RNA, URTPRT, UMICAO, UEOS, UA #### [facility] [address], [place] [phone] Events Associate: Ronn Arias MD Lactic Acid,Sep Wbld 1.2 mmol/L Normal 0.5-1.9 [facility] Comment on above: Performed By: #### U RNA, URTPRT, UMICAO, UEOS, UA #### [facility] [address], [place] [phone] Events Associate: Ronn Arias MD [facility] Lipaseon 01-01-2022 Lipase [Catalytic activity/Vol] 1918 U/L High 13 - 60 U/L [facility] Lipase [Catalytic activity/Vol] 1918 U/L High 13-60 [facility] Comment on above: Performed By: #### U RNA, URTPRT, UMICAO, UEOS, UA #### [facility] [address], [place] [id number] Events Associate: Ronn Arias MD Lipid Panelon 01-01-2022 Cholesterol [Mass/Vol] 103 mg/dL NINF - 200 mg/dL [facility] Comment on above: Cholesterol Guidelines: <200 Desirable 200-240 Borderline >240 Undesirable Cholesterol in HDL [Mass/Vol] 46 mg/dL 40 - PINF mg/dL [facility] Comment on above: HDL Guidelines: <40 Undesirable 40-59 Borderline >59 Desirable Cholesterol in LDL [Mass/Vol] 46 mg/dL 0 - 130 mg/dL [facility] Comment on above: LDL Guidelines: <100 Desirable 100-129 Near to/above Desirable 130-159 Borderline >159 Undesirable Direct (measured) LDL and calculated LDL are not interchangeable tests. Cholesterol.total/Ch olesterol in HDL [Mass ratio] 2.2 {ratio} NINF - 5 [facility] Triglyceride [Mass/Vol] 53 mg/dL NINF - 150 mg/dL [facility] Comment on above: Triglyceride Guidelines: <150 Desirable 150-199 Borderline 200-499 High >499 Very high Based on AHA Guidelines for fasting triglyceride, January 2012. Lipid Profileon 01-01-2022 Cholesterol [Mass/Vol] 103 mg/dL Normal <200 [facility] Comment on above: Result Comment: Cholesterol Guidelines: <200 Desirable 200-240 Borderline >240 Undesirable Performed By: #### U RNA, URTPRT, UMICAO, UEOS, UA #### [facility] [address] [place] [address] Events Associate: Ronn Arias MD Cholesterol in HDL [Mass/Vol] 46 mg/dL Normal >40 [facility] Comment on above: Result Comment: HDL Guidelines: <40 Undesirable 40-59 Borderline >59 Desirable Performed By: #### U RNA, URTPRT, UMICAO, UEOS, UA #### [facility] [address] [place] [address] Events Associate: Ronn Arias MD Cholesterol in LDL [Mass/Vol] 46 mg/dL Normal 0-130 [facility] Comment on above: Result Comment: LDL Guidelines: <100 Desirable 100-129 Near to/above Desirable 130-159 Borderline >159 Undesirable Direct (measured) LDL and calculated LDL are not interchangeable tests. Performed By: #### U RNA, URTPRT, UMICAO, UEOS, UA #### [facility] [address] [place] [address] Events Associate: Ronn Arias MD Cholesterol.total/Ch olesterol in HDL [Mass ratio] 2.2 {ratio} Normal <5 [facility] Comment on above: Performed By: #### U RNA, URTPRT, UMICAO, UEOS, UA #### [facility] [address] [place] [phone] Events Associate: Ronn Arias MD Triglyceride [Mass/Vol] 53 mg/dL Normal <150 [facility] Comment on above: Result Comment: Triglyceride Guidelines: <150 Desirable 150-199 Borderline 200-499 High >499 Very high Based on AHA Guidelines for fasting triglyceride, January 2012. Performed By: #### U RNA, URTPRT, UMICAO, UEOS, UA #### [employer] [address] [place] [phone] Events Associate: Ronn Arias MD Liver Profileon 01-01-2022 Albumin [Mass/Vol] 3.2 g/dL Low 3.5-5.2 [facility] Comment on above: Performed By: #### U RNA, URTPRT, UMICAO, UEOS, UA #### [facility] [address] [place] [address] [phone] Events Associate: Ronn Arias MD Albumin/Glob Ratio 1.3 Normal 1.0-2.5 [facility] Comment on above: Performed By: #### U RNA, URTPRT, UMICAO, UEOS, UA #### [facility] [address] [place] [address] [phone] Events Associate: Ronn Arias MD Alkaline Phos 98 U/L Normal 40-129 [facility] Comment on above: Performed By: #### U RNA, URTPRT, UMICAO, UEOS, UA #### [facility] [employer] [address] [place] [address] 39134 Events Associate: Ronn Arias MD ALT [Catalytic activity/Vol] 202 U/L High 5-41 [facility] Comment on above: Performed By: #### U RNA, URTPRT, UMICAO, UEOS, UA #### [facility] [employer] [address] [place] [address] [phone] Events Associate: Ronn Arias MD AST [Catalytic activity/Vol] 117 U/L High <40 [facility] Comment on above: Performed By: #### U RNA, URTPRT, UMICAO, UEOS, UA #### [facility] [employer] [address] [place] [address] [phone] Events Associate: Ronn Arias MD Bilirubin [Mass/Vol] 4.4 mg/dL High 0.3-1.2 [facility] Comment on above: Performed By: #### U RNA, URTPRT, UMICAO, UEOS, UA #### [facility] [address] [place] [address] Events Associate: Ronn Arias MD Bilirubin, Indirect 0.3 mg/dL Normal 0.00-1.00 [facility] Comment on above: Performed By: #### U RNA, URTPRT, UMICAO, UEOS, UA #### [facility] [address] [place] [address] Events Associate: Ronn Arias MD Bilirubin.indirect [Mass/Vol] 4.1 mg/dL High <0.31 [facility] Comment on above: Performed By: #### U RNA, URTPRT, UMICAO, UEOS, UA #### [facility] [address] [place] [address] Events Associate: Ronn Arias MD Protein [Mass/Vol] 5.6 g/dL Low 6.4-8.3 [facility] Comment on above: Performed By: #### U RNA, URTPRT, UMICAO, UEOS, UA #### [facility] [address] [place] [address] Events Associate: Ronn Arias MD MRI ABDOMEN WO CONTRAST [...] Aliya Salgado MD 01/01/22 Final result Normal [facility] Radiology Study observation (narrative) [facility] [employer] Work Phone: 1. Christen pancreatic inflammation suggestive of acute [...] findings do not require dedicated imaging follow-up. [facility] RIS CONSOLIDATED Aliya Salgado MD - 01/01/2022 [...] for acute cholecystitis, biliary dilatation or choledocholithiasis. [facility] [employer] Work Phone: MRI ABDOMEN WO CONTRAST MRCP Ordered By: Aliya Salgado on 01-01-2022 [facility] [employer] Work Phone: Magnesiumon 01-01-2022 Magnesium [Mass/Vol] 1.7 mg/dL 1.6 - 2 .6 mg/dL [facility] Magnesium [Mass/Vol] 1.7 mg/dL Normal 1.6-2.6 [facility] Comment on above: Performed By: #### U RNA, URTPRT, UMICAO, UEOS, UA #### [employer] [address], [place] [phone] Events Associate: Ronn Arias MD Magnesium [Mass/Vol] 1.7 mg/dL 1.6 - 2 .6 mg/dL [facility] Magnesium [Mass/Vol] 1.7 mg/dL Normal 1.6-2.6 [facility] Comment on above: Performed By: #### U RNA, URTPRT, UMICAO, UEOS, UA #### [employer] [address] [place] [address] Events Associate: Ronn Arias MD No Panel Informationon 01-01 Interpretation and review of laboratory results Abnormal [facility] Interpretation and review of laboratory results Abnormal [facility] Interpretation and review of laboratory results Abnormal [facility] [place] PTon 01-01-2022 INR Coag (PPP) [Relative time] 1.2 {INR} Normal [facility] Comment on above: Result Comment: Therapeutic Range: Moderate Anticoagulant Intensity: INR = 2.0-3.0 High Anticoagulant Intensity: INR = 2.5-3.5 Performed By: #### U RNA, URTPRT, UMICAO, UEOS, UA #### [facility] [address], [place] [phone] Events Associate: Ronn Arias MD PT Coag (PPP) [Time] 12.7 s High 9.1-12.3 [facility] Comment on above: Performed By: #### U RNA, URTPRT, UMICAO, UEOS, UA #### [facility] [address], [place] [phone] Events Associate: Ronn Arias MD Phosphoruson 01-01-2022 Phosphate [Mass/Vol] 3.0 mg/dL 2.5 - 4 .5 mg/dL [facility] Phosphorus, Inorg.on 022 Phosphorus, Inorg. 3.0 mg/dL Normal 2.5-4.5 [facility] Comment on above: Performed By: #### U RNA, URTPRT, UMICAO, UEOS, UA #### [facility] [address], [place] [phone] Events Associate: Ronn Arias MD Procalcitoninon 01-01-2022 Procalcitonin 67.66 ng/mL High NINF - 0.09 ng/mL [facility] Comment on above: Suspected Sepsis: [...] entered into the Change in Procalcitonin Calculator (www.ttfect-tms-qumeliqzuq.com) to determine the patient's Mortality Risk Prognosis In healthy neonates, plasma Procalcitonin (PCT) concentrations increase gradually after , reaching peak values at about 24 hours of age then decrease to normal values below 0.5 ng/mL by 48-72 hours of age. Procalcitonin 67.66 ng/mL High <0.09 [facility] Comment on above: Result Comment: Suspected [...] entered into the Change in Procalcitonin Calculator (www.uccaca-ecx-bzieyhgupb.MD.Voice) to determine the patient's Mortality Risk Prognosis In healthy neonates, plasma Procalcitonin (PCT) concentrations increase gradually after , reaching peak values at about 24 hours of age then decrease to normal values below 0.5 ng/mL by 48-72 hours of age. Performed By: #### U RNA, URTPRT, UMICAO, UEOS, UA #### [employer] [address] [place] [address] Events Associate: Ronn Arias MD Protein, urine, randomon Protein (U) [Mass/Vol] 59 mg/dL [facility] Comment on above: No normal range esta blished. [facility] Protime-INRon 01-01-2022 INR Coag (Bld) [Relative time] 1.2 {INR} [facility] Comment on above: Therapeutic Range: Moderate Anticoagulant Intensity: INR = 2.0-3.0 High Anticoagulant Intensity: INR = 2.5-3.5 PT Coag (PPP) [Time] 12.7 s High [facility] Sodium, Random Uron 01-02-20 22 Sodium (U) [Moles/Vol] 37 mmol/L Normal [facility] Comment on above: Result Comment: No n ormal range established. Performed By: #### U RNA, URTPRT, UMICAO, UEOS, UA #### [employer] [address], [place] [id number] Events Associate: Ronn Arias MD Sodium, urine, randomon 12-21 Sodium (U) [Moles/Vol] 37 mmol/L [facility] Comment on above: No normal range esta blished. Triglycerideon 01-01-2022 Triglyceride [Mass/Vol] 58 mg/dL NINF - 150 mg/dL [facility] Comment on above: Triglyceride Guidelines: <150 Desirable 150-199 Borderline 200-499 High >499 Very high Based on AHA Guidelines for fasting triglyceride, January 2012. Triglycerideson 01-01-2022 Triglyceride [Mass/Vol] 58 mg/dL Normal <150 [facility] Comment on above: Result Comment: Triglyceride Guidelines: <150 Desirable 150-199 Borderline 200-499 High >499 Very high Based on AHA Guidelines for fasting triglyceride, January 2012. Performed By: #### U RNA, URTPRT, UMICAO, UEOS, UA #### [employer] [address] [place] [address] [phone] Events Associate: Ronn Arias MD Troponinon 01-01-2022 Troponin, High Sens 15 ng/L Normal 0-22 [facility] Comment on above: Result Comment: High Sensitivity Troponin values cannot be compared with other Troponin methodologies. Patients with high levels of Biotin oral intake (i.e >5mg/day) may have falsely decreased Troponin levels. Samples collected within 8 hours of biotin intake may require additional information for diagnosis. Performed By: #### U RNA, URTPRT, UMICAO, UEOS, UA #### [facility] [address], [place] [phone] Events Associate: Ronn Arias MD Troponin, High Sens 17 ng/L Normal 0-22 [facility] Comment on above: Result Comment: High Sensitivity Troponin values cannot be compared with other Troponin methodologies. Patients with high levels of Biotin oral intake (i.e >5mg/day) may have falsely decreased Troponin levels. Samples collected within 8 hours of biotin intake may require additional information for diagnosis. Performed By: #### U RNA, URTPRT, UMICAO, UEOS, UA #### [facility] [address] [place] [address] Events Associate: Ronn Arias MD Troponin, High Sens 18 ng/L Normal 0-22 [facility] Comment on above: Result Comment: High Sensitivity Troponin values cannot be compared with other Troponin methodologies. Patients with high levels of Biotin oral intake (i.e >5mg/day) may have falsely decreased Troponin levels. Samples collected within 8 hours of biotin intake may require additional information for diagnosis. Performed By: #### U RNA, URTPRT, UMICAO, UEOS, UA #### [employer] [address] [place] [address] Events Associate: Ronn Arias MD Troponin, High Sens 18 ng/L Normal 0-22 [facility] Comment on above: Result Comment: High Sensitivity Troponin values cannot be compared with other Troponin methodologies. Patients with high levels of Biotin oral intake (i.e >5mg/day) may have falsely decreased Troponin levels. Samples collected within 8 hours of biotin intake may require additional information for diagnosis. Performed By: #### U RNA, URTPRT, UMICAO, UEOS, UA #### [facility] [address] [place] [address] Events Associate: Ronn Arias MD Troponin, High Sens 18 ng/L Normal 0-22 [facility] Comment on above: Result Comment: High Sensitivity Troponin values cannot be compared with other Troponin methodologies. Patients with high levels of Biotin oral intake (i.e >5mg/day) may have falsely decreased Troponin levels. Samples collected within 8 hours of biotin intake may require additional information for diagnosis. Performed By: #### U RNA, URTPRT, UMICAO, UEOS, UA #### [facility] [address], [place] [phone] Events Associate: Ronn Arias MD Troponin, High Sens 17 ng/L Normal 0-22 [facility] Comment on above: Result Comment: High Sensitivity Troponin values cannot be compared with other Troponin methodologies. Patients with high levels of Biotin oral intake (i.e >5mg/day) may have falsely decreased Troponin levels. Samples collected within 8 hours of biotin intake may require additional information for diagnosis. Performed By: #### U RNA, URTPRT, UMICAO, UEOS, UA #### [facility] [address], [place] [phone] Events Associate: Ronn Arias MD Troponin, High Sens 19 ng/L Normal 0-22 [facility] Comment on above: Result Comment: High Sensitivity Troponin values cannot be compared with other Troponin methodologies. Patients with high levels of Biotin oral intake (i.e >5mg/day) may have falsely decreased Troponin levels. Samples collected within 8 hours of biotin intake may require additional information for diagnosis. Performed By: #### U RNA, URTPRT, UMICAO, UEOS, UA #### [facility] [address], [place] [phone] Events Associate: Ronn Arias MD Troponin, High Sensitivity 15 ng/L 0 - 22 ng/L [facility] Comment on above: High Sensitivity Troponin values cannot be compared with other Troponin methodologies. Patients with high levels of Biotin oral intake (i.e >5mg/day) may have falsely decreased Troponin levels. Samples collected within 8 hours of biotin intake may require additional information for diagnosis. Troponin, High Sensitivity 17 ng/L 0 - 22 ng/L [facility] Comment on above: High Sensitivity Troponin values cannot be compared with other Troponin methodologies. Patients with high levels of Biotin oral intake (i.e >5mg/day) may have falsely decreased Troponin levels. Samples collected within 8 hours of biotin intake may require additional information for diagnosis. Troponin, High Sensitivity 18 ng/L 0 - 22 ng/L [facility] Comment on above: High Sensitivity Troponin values cannot be compared with other Troponin methodologies. Patients with high levels of Biotin oral intake (i.e >5mg/day) may have falsely decreased Troponin levels. Samples collected within 8 hours of biotin intake may require additional information for diagnosis. Troponin, High Sensitivity 18 ng/L 0 - 22 ng/L [facility] [employer] Comment on above: High Sensitivity Troponin values cannot be compared with other Troponin methodologies. Patients with high levels of Biotin oral intake (i.e >5mg/day) may have falsely decreased Troponin levels. Samples collected within 8 hours of biotin intake may require additional information for diagnosis. Troponin, High Sensitivity 18 ng/L 0 - 22 ng/L [facility] [employer] Comment on above: High Sensitivity Troponin values cannot be compared with other Troponin methodologies. Patients with high levels of Biotin oral intake (i.e >5mg/day) may have falsely decreased Troponin levels. Samples collected within 8 hours of biotin intake may require additional information for diagnosis. Troponin, High Sensitivity 17 ng/L 0 - 22 ng/L [facility] [employer] Comment on above: High Sensitivity Troponin values cannot be compared with other Troponin methodologies. Patients with high levels of Biotin oral intake (i.e >5mg/day) may have falsely decreased Troponin levels. Samples collected within 8 hours of biotin intake may require additional information for diagnosis. Troponin, High Sensitivity 19 ng/L 0 - 22 ng/L [facility] [employer] Comment on above: High Sensitivity Troponin values cannot be compared with other Troponin methodologies. Patients with high levels of Biotin oral intake (i.e >5mg/day) may have falsely decreased Troponin levels. Samples collected within 8 hours of biotin intake may require additional information for diagnosis. [facility] UA w/Reflex Cultureon 2021 Bilirubin, SemiQt,Ur MOD Abnormal NEG [facility] Comment on above: Performed By: #### U RNA, URTPRT, UMICAO, UEOS, UA #### [facility] [address] [place] [address] Events Associate: Ronn Arias MD Blood, Urine SMALL Abnormal NEG [facility] Comment on above: Performed By: #### U RNA, URTPRT, UMICAO, UEOS, UA #### [facility] [address], [place] [phone] Events Associate: Ronn Arias MD Clarity (U) Turbid Abnormal CLEAR [facility] Comment on above: Performed By: #### U RNA, URTPRT, UMICAO, UEOS, UA #### [facility] [address] [place] [address] 98140 Events Associate: Ronn Arias MD Color (U) Dark Yellow Abnormal YEL [facility] Comment on above: Performed By: #### U RNA, URTPRT, UMICAO, UEOS, UA #### [facility] [address] [place] [address] 29735 Events Associate: Ronn Arias MD Glucose Ql (U) Negative Normal NEG [facility] Comment on above: Performed By: #### U RNA, URTPRT, UMICAO, UEOS, UA #### [facility] [address] [place] [address] 64046 Events Associate: Ronn Arias MD Ketones Ql (U) Negative Normal NEG [facility] Comment on above: Performed By: #### U RNA, URTPRT, UMICAO, UEOS, UA #### [facility] [address] [place] [address] 03670 Events Associate: Ronn Arias MD Leukocyte esterase Test strip Ql (U) Negative Normal NEG [facility] Comment on above: Performed By: #### U RNA, URTPRT, UMICAO, UEOS, UA #### [facility] [address] [place] [address] 07508 Events Associate: Ronn Arias MD Nitrite,Ur Negative Normal NEG [facility] Comment on above: Performed By: #### U RNA, URTPRT, UMICAO, UEOS, UA #### [facility] [address] [place] [address] 87207 Events Associate: Ronn Arias MD PH,Ur 5.0 Normal 5.0-8.0 [facility] Comment on above: Performed By: #### U RNA, URTPRT, UMICAO, UEOS, UA #### [employer] [facility], [place] [phone] Events Associate: Ronn Arias MD Protein Ql (U) 1+ Abnormal NEG [facility] Comment on above: Performed By: #### U RNA, URTPRT, UMICAO, UEOS, UA #### [facility] [address] [place] [address] [phone] Events Associate: Ronn Arias MD Spec. [place],Ur 1.013 Normal 1.005-1.03 0 [facility] Comment on above: Performed By: #### U RNA, URTPRT, UMICAO, UEOS, UA #### [facility] [address] [place] [address] [phone] Events Associate: Ronn Arias MD Urobilinogen,Ur Normal Normal NORM [facility] Comment on above: Performed By: #### U RNA, URTPRT, UMICAO, UEOS, UA #### [facility] [address] [place] [address] [phone] Events Associate: Ronn Arias MD Urinalysis with Reflex to Cu ltureon 01-01-2022 Bilirubin Urine MOD Abnormal NEGATIVE [facility] Color, UA Dark Yellow Abnormal Yellow [facility] Glucose, Ur Negative NEGATIVE [facility] Ketones Ql (U) Negative NEGATIVE [facility] Leukocyte esterase Test strip Ql (U) Negative NEGATIVE [facility] Nitrite, Urine Negative NEGATIVE [facility] pH, UA 5.0 5 - 8 [facility] Protein, UA 1+ Abnormal NEGATIVE [facility] Specific [place], UA 1.013 1.005 - 1.03 [facility] Turbidity UA Turbid Abnormal Clear [facility] Urine Hgb SMALL Abnormal NEGATIVE [facility] Urobilinogen, Urine Normal Normal [facility] Urinalysis, Microon 01-02-20 22 Casts UA 20 TO 50 [facility] Casts UA COARSELY GRANULAR [facility] Epithelial Cells UA 5 TO 10 [facility] RBC, UA 10 TO 20 [facility] WBC, UA 10 TO 20 [facility] Urinalysis,Microon 2 Casts 20 TO 50 Normal 0-2 [facility] Comment on above: Result Comment: COAR ASHLEY LEDESMA Performed By: #### U RNA, URTPRT, UMICAO, UEOS, UA #### [facility] [address], [place] [phone] Events Associate: Ronn Arias MD Epithelial cells LM Ql (Urine sed) 5 TO 10 Normal 0-5 [facility] Comment on above: Performed By: #### U RNA, URTPRT, UMICAO, UEOS, UA #### [facility] [address] [place] [address] 49605 Events Associate: Ronn Arias MD Urine RBC's 10 TO 20 Normal 02 [facility] Comment on above: Performed By: #### U RNA, URTPRT, UMICAO, UEOS, UA #### [facility] [address], [place] [phone] Events Associate: Ronn Arias MD Urine WBC's 10 TO 20 Normal 0-5 [facility] Comment on above: Performed By: #### U RNA, URTPRT, UMICAO, UEOS, UA #### [facility] [address], [place] [phone] Events Associate: Ronn Arias MD CBC AUTO DIFFon 12-31-2021 BASO # 0.1 103/ul Normal 0.0-0.1 [facility] Comment on above: Performed By: #### H STROPN #### [facility] [address] [address] [address] Kulwant Brennan Basophils/100 WBC (Bld) 0.2 % Normal 0.2-2.0 [facility] Comment on above: Performed By: #### H STROPN #### [facility] [address] [place] [address] Dr. Kulwant Brennan EO # 0.0 103/ul Normal 0.0-0.7 [facility] Comment on above: Performed By: #### H STROPN #### [facility] [address] [place] [address] Dr. Kulwant Brennan Eosinophils/100 WBC (Bld) 0.0 % Critically low 0.9-7.0 [facility] Comment on above: Performed By: #### H STROPN #### [facility] [address] [place] [address] Dr. Kulwant Brennan Erythrocyte distribution width (RBC) [Ratio] 14.4 % Normal 11.0-15.0 [facility] Comment on above: Performed By: #### H STROPN #### [facility] [address] [place] [address] Dr. Kulwant Brennan Hematocrit (Bld) [Volume fraction] 37.9 % Critically low 42.0-54.0 [facility] Comment on above: Performed By: #### H STROPN #### [facility] [address] [place] [address] Dr. Kulwant Brennan Hemoglobin (Bld) [Mass/Vol] 12.2 g/dL Critically low 14.0-18.0 [facility] Comment on above: Performed By: #### H STROPN #### [facility] [address] [place] [address] Dr. Kulwant Brennan IG # 0.16 10e3/ul Critically high 0.00-0.03 [facility] Comment on above: Performed By: #### H STROPN #### [facility] [address] [place] [address] Dr. Kulwant Brennan IG % 0.6 % Critically high 0.0-0.5 [facility] Comment on above: Performed By: #### H STROPN #### [facility] [address] [address] [address] Kulwant Brennan LYMPH # 0.7 103/ul Critically low 1.2-3.8 [facility] Comment on above: Performed By: #### H STROPN #### [facility] [address] [place] [address] Dr. Kulwant Brennan Lymphocytes/100 WBC (Bld) 2.9 % Critically low 20.5-60.0 [facility] Comment on above: Performed By: #### H STROPN #### [facility] [address] [place] [address] Dr. Kulwant Brennan MANUAL DIFF REQ NO Normal [facility] Comment on above: Performed By: #### H STROPN #### [facility] [address] [place] [address] Dr. Kulwant Brennan MCH (RBC) [Entitic mass] 27.7 pg Normal 25.9-34.0 [facility] Comment on above: Performed By: #### H STROPN #### [facility] [address] [place] [address] Dr. Kulwant Brennan MCHC (RBC) [Mass/Vol] 32.2 g/dL Normal 29.9-35.2 [facility] Comment on above: Performed By: #### H STROPN #### [facility] [address] [place] [address] Dr. Kulwant Brennan MCV (RBC) [Entitic vol] 86.1 fL Normal 80.0-94.0 [facility] Comment on above: Performed By: #### H STROPN #### [facility] [address] [place] [address] Dr. Kulwant Brennan MONO # 1.6 103/ul Critically high 0.3-0.8 [facility] Comment on above: Performed By: #### H STROPN #### [facility] [address] [place] [address] Dr. Kulwant Brennan Monocytes/100 WBC (Bld) 6.4 % Normal 1.7-12.0 [facility] Comment on above: Performed By: #### H STROPN #### [facility] [address] [address] [address] Kulwant Brennan NEUT # 22.8 103/ul Critically high 1.4-6.5 [facility] Comment on above: Performed By: #### H STROPN #### [facility] [address] [address] [address] Kulwant Brennan Neutrophils/100 WBC (Bld) 89.9 % Critically high 43.0-75.0 [facility] Comment on above: Performed By: #### H STROPN #### [facility] [address] [address] [address] Kulwant Brennan Platelet mean volume (Bld) [Entitic vol] 10.0 fL Normal 9.5-13.5 [facility] Comment on above: Performed By: #### H STROPN #### [facility] [facility] [address] [address] [address] Kulwant Brennan PLT 211 103/ul Normal 150-450 [facility] Comment on above: Performed By: #### H STROPN #### [facility] [address] [address] [address] Kulwant Brennan RBC 4.40 106/ul Critically low 4.70-6.10 [facility] Comment on above: Performed By: #### H STROPN #### [facility] [address] [address] [address] Kulwant Brennan WBC 25.3 103/ul Critically high 4.0-11.0 The [facility] Comment on above: Performed By: #### H STROPN #### [facility] [address] [address] [address] Kulwant Brennan CULTURE BLOODon 12-31-2021 Microscopic examination of blood, culture Culture Observations: NO GROWTH AT 5 DAYS. Normal [facility] Comment on above: Performed By: #### B LDCX2 ####[facility] [address] [address]Dr. Kulwant Brennan Performed By: #### B LDCX1 ####[facility] [address] [address]Dr. Kulwant Brennan CULTURE URINEon 12-31-2021 CULTURE URINE Culture Observations : MODERATE GROWTH OF MIXED SKIN MITA. NO POTENTIAL PATHOGENS SEEN. Normal [facility] Comment on above: Performed By: #### U RCX ####[facility] [address] [place], [place] [address]Dr. Kulwant Brennan Covid-19 PCR (CVDTB)on 12-21 SARS-CoV-2 (COVID-19) RNA MIKE+probe Ql (Unsp spec) Not detected Normal NOT DETECTED [facility] Comment on above: Result Comment: When [...] for this test is supported by the [place] of Health and Human Service's declaration that [...] longer be used). Performed By: #### C VDTB ####[facility] [address] [place], [place] [address]Dr. Kulwant Brennan ER URINE PROFILEon 2 Bilirubin Ql (U) MODERATE Abnormal NEGATIVE [facility] Comment on above: Performed By: #### ANA LAURA VARELA ####[facility] [address] [place], [place] [address]Dr. Kulwant Brennan Clarity (U) CLEAR Normal CLEAR [facility] Comment on above: Performed By: #### ANA LAURA VARELA ####[facility] [address] [place], [place] [address]Dr. Kulwant Brennan Color (U) DK. ORANGE Abnormal YELLOW [facility] Comment on above: Performed By: #### ANA LAURA VARELA ####[facility] [address] [address]Dr. Kulwant Brennan ERUAHD A micrscopic examina tion will be performed if indicated. Normal [facility] Comment on above: Performed By: #### ANA LAURA VARELA ####[facility] [address] [address]Dr. Kulwant Brennan Glucose Ql (U) Negative Normal NEGATIVE [facility] Comment on above: Performed By: #### ANA LAURA VARELA ####[facility] [address] [address]Dr. Kulwant Brennan Hemoglobin Ql (U) SMALL Abnormal NEGATIVE The [facility] Comment on above: Performed By: #### ANA LAURA VARELA ####[facility] [address] [address]Dr. Kulwant Brennan Ketones Ql (U) Negative Normal NEGATIVE [facility] Comment on above: Performed By: #### ANA LAURA VARELA ####[facility] [address] [place], [place] [address]Dr. Kulwant Brennan LEUKOCYTES Negative Normal NEGATIVE [facility] Comment on above: Performed By: #### ANA LAURA VARELA ####[facility] [address] [address]Dr. Kulwant Brennan Nitrite Ql (U) Positive Abnormal NEGATIVE [facility] Comment on above: Performed By: #### ANA LAURA VARELA ####[facility] [address] [address]Dr. Kulwant Brennan pH (U) 5.5 [pH] Normal 5-9 [facility] Comment on above: Performed By: #### ANA LAURA VARELA ####[facility] [address] [address]Dr. Kulwant Brennan Protein (U) [Mass/Vol] 100 mg/dL Abnormal NEGATIVE/ TRACE [facility] Comment on above: Performed By: #### ANA LAURA VARELA ####[facility] [address] [place], [place] [address]Dr. Kulwant Brennan SPEC GRAVITY 1.020 Normal 1.005-<=1. 025 [facility] Comment on above: Performed By: #### ANA LAURA VARELA ####[facility] [address] [address]Dr. Kulwant Brennan UR MICRO IND INDICATED Normal [facility] Comment on above: Performed By: #### ANA LAURA VARELA ####[facility] [address] [address]Dr. Kulwant Brennan Urobilinogen Qn (U) 1.0 {Luis'U}/dL Normal 0.2 - 1. 0 [facility] Comment on above: Performed By: #### ANA LAURA VARELA ####[facility] [address] [address]Dr. Kulwant Brennan LACTATE/LACTIC ACIDon 2021 Lactate [Moles/Vol] 2.4 mmol/L Critically high 0.4-1.9 [facility] Comment on above: Performed By: #### L ACT ####[facility] [address] [address]Dr. Kulwant Brennan Lactate [Moles/Vol] 1.6 mmol/L Normal 0.4-1.9 [facility] Comment on above: Performed By: #### L ACT #### [facility] [address] [place] [address] Dr. Kulwant Brennan LIPASEon 12-31-2021 Lipase [Catalytic activity/Vol] 6610.0 U/L Critically high 73.0-393.0 [facility] Comment on above: Performed By: #### L ACT #### [facility] [address] [address] [address] Kulwant Brennan PROF 14(COMP METB)on 022 Albumin [Mass/Vol] 3.3 g/dL Critically low 3.4-5.0 [facility] Comment on above: Performed By: #### L ACT #### [facility] [address] [place] [address] Dr. Kulwant Brennan Albumin/Globulin [Mass ratio] 0.9 {ratio} Normal [facility] Comment on above: Performed By: #### L ACT #### [facility] [address] [address] [address] Kulwant Brennan ALP [Catalytic activity/Vol] 124 U/L Critically high 46-116 [facility] Comment on above: Performed By: #### L ACT #### [facility] [address] [address] [address] Kulwant Brennan ALT [Catalytic activity/Vol] 327 U/L Critically high 16-63 [facility] Comment on above: Performed By: #### L ACT #### [facility] [address] [address] [address] Kulwant Brennan Anion gap [Moles/Vol] 15.6 mmol/L Normal [facility] Comment on above: Performed By: #### L ACT #### [facility] [address] [address] [address] Kulwant Brennan AST [Catalytic activity/Vol] 229 U/L Critically high 15-37 [facility] Comment on above: Performed By: #### L ACT #### [facility] [address] [address] [address] Kulwant Brennan Bilirubin [Mass/Vol] 6.2 mg/dL Critically high 0.2-1.0 [facility] Comment on above: Performed By: #### L ACT #### [facility] [address] [address] [address] Kulwant Brennan Calcium [Mass/Vol] 7.2 mg/dL Critically low 8.5-10.1 [facility] Comment on above: Performed By: #### L ACT #### [facility] [address] [address] [address] Kulwant Brennan Chloride [Moles/Vol] 102 mmol/L Normal 98-107 [facility] Comment on above: Performed By: #### L ACT #### [facility] [address] [address] [address] Kulwant Brennan CO2 [Moles/Vol] 26.4 mmol/L Normal 21.0-32.0 [facility] Comment on above: Performed By: #### L ACT #### [facility] [address] [address] [address] Kulwant Brennan Creatinine [Mass/Vol] 3.33 mg/dL Critically high 0.70-1.30 [facility] Comment on above: Performed By: #### L ACT #### [facility] [address] [address] [address] Kulwant Brennan EGFR-AF BRITISH 22 mL/min/1.73m2 Critically low >=60 [facility] Comment on above: Performed By: #### L ACT #### [facility] [address] [address] [address] Kulwant Brennan EGFR-NON AF BRITISH 19 mL/min/1.73m2 Critically low >=60 [facility] Comment on above: Performed By: #### L ACT #### [facility] [address] [address] [address] Kulwant Brennan Globulin (S) [Mass/Vol] 3.8 g/dL Normal [facility] Comment on above: Performed By: #### L ACT #### [facility] [address] [address] [address] Kulwant Brennan Glucose [Mass/Vol] 245 mg/dL Critically high 74-106 [facility] Comment on above: Performed By: #### L ACT #### [facility] [address] [address] [address] Kulwant Brennan Potassium [Moles/Vol] 5.0 mmol/L Normal 3.5-5.1 [facility] Comment on above: Performed By: #### L ACT #### [facility] [address] [address] [address] Kulwant Brennan Protein [Mass/Vol] 7.1 g/dL Normal 6.4-8.2 [facility] Comment on above: Performed By: #### L ACT #### [facility] [address] [address] [address] Kulwant Brennan Sodium [Moles/Vol] 139 mmol/L Normal 136-145 [facility] Comment on above: Performed By: #### L ACT #### [facility] [address] [address] [address] Kulwant Brennan Urea nitrogen [Mass/Vol] 51.0 mg/dL Critically high 7.0-18.0 [facility] Comment on above: Performed By: #### L ACT #### [facility] [address] [address] [address] Kulwant Brennan Urea nitrogen/Creatinine [Mass ratio] 15.3 mg/mg Normal [facility] Comment on above: Performed By: #### L ACT #### [facility] [address] [address] [address] Kulwant Brennan PROTIMEon 12-31-2021 INR Coag (PPP) [Relative time] 1.17 {INR} Normal [facility] Comment on above: Performed By: #### H STROPN #### [facility] [address] [place] [address] Dr. Kulwant Brennan INR GUIDELINES SEE BELOW Normal [facility] Comment on above: Result Comment: HAYDEE RED INR: 2.0 - 3.0 CONDITIONS NOT LISTED BELOW 2.5 - 3.5 FOR PROSTHETIC HEART VALVE REPLACEMENT 2.5 - 3.5 RECURRENT THROMBOSIS Performed By: #### H STROPN #### [facility] [address] [address] [address] Kulwant Brennan PT Coag (PPP) [Time] 12.5 s Critically high 9.0-11.6 [facility] Comment on above: Performed By: #### H STROPN #### [facility] [address] [address] [address] Kulwant Brennan PTTon 12-31-2021 aPTT Coag (Bld) [Time] 33.3 s Normal 22.3-36.2 [facility] Comment on above: Performed By: #### P TT, PT ####[facility] [address] [address]Dr. Kulwant Brennan TROPONIN, HIGH SENSITIVITYon 12-31-2021 HSTROP 6.0 pg/mL Normal 4.0-76.1 [facility] Comment on above: Result Comment: CUT- OFF POINTS HAVE BEEN ESTABLISHED BASED ON THE FOURTH UNIVERSAL DEFINITIONS OF MYOCARDIAL INFARCTION. THE UPPER REFERENCE LIMIT (URL) OF TROPONIN, DEFINED THE 99TH PERCENTILE OF cTnI DISTRIBUTION IN A REFERENCE POPULATION, HAS BEEN CONFIRMED THE DECISION THRESHOLD FOR MO DIAGNOSIS. Performed By: #### L ACT #### [facility] [address] [address] [address] Kulwant Brennan URINE MICROSCOPIC ONLYon BACTERIA SMALL Abnormal NONE SEEN [facility] Comment on above: Performed By: #### MICHELLE VARELARO ####[facility] [address] [address]Dr. Kulwant Brennan Bacteria identified Cx Nom (U) INDICATED Normal [facility] Comment on above: Performed By: #### MICHELLE VARELARO ####[facility] [address] [address]Dr. Kulwant Brennan CAST SEEN Abnormal NONE SEEN [facility] Comment on above: Performed By: #### MICHELLE VARELARO ####[facility] [address] [address]Dr. Kulwant Brennan COARSE GRANULAR CAST FEW Normal [facility] Comment on above: Performed By: #### MICHELLE VARELARO ####[facility] [address] [address]Dr. Kulwant Brennan Crystals LM Nom (Urine sed) NONE SEEN Normal NONE SEEN [facility] Comment on above: Performed By: #### Lilly JHAVERI UMICRO ####[facility] [address] [address]Dr. Kulwant Brennan Epithelial cells LM Ql (Urine sed) FEW Abnormal NONE SEEN /RARE [facility] Comment on above: Performed By: #### MICHELLE VARELARO ####[facility] [address] [address]Dr. Kulwant Brennan MUCOUS TRACE Abnormal NONE SEEN [facility] Comment on above: Performed By: #### Lilly JHAVERI UMICRO ####[facility] [address] [address]Dr. Kulwant Brennan RBC 5-10 Abnormal 0-2 [facility] Comment on above: Performed By: #### E ANA LAURA JHAVERI ####[facility] [address] [place], [place] [address]Ed. uKlwant Brennan WBC 0-2 Abnormal NONE SEEN [facility] Comment on above: Performed By: #### E ANA LAURA JHAVERI ####[facility] [address] [place], [place] [address]Ji. Kulwant Brennan US SINGLE QUAD RT UPPERon [...] DAVIE NARANJO Date: 2021-12-31 19:27 Normal [facility] AMYLASEon 12-30-2021 Amylase [Catalytic activity/Vol] 47 U/L Normal 25-115 [facility] Comment on above: Performed By: #### H STROPN #### [facility] [address] [address] [address] Kulwant Brennan CBC AUTO DIFFon 12-30-2021 BASO # 0.0 103/ul Normal 0.0-0.1 [facility] Comment on above: Performed By: #### L ACT #### [facility] [address] [address] [address] Kulwant Brennan Basophils/100 WBC (Bld) 0.5 % Normal 0.2-2.0 [facility] Comment on above: Performed By: #### L ACT #### [facility] [address] [address] [address] Kulwant Brennan EO # 0.3 103/ul Normal 0.0-0.7 [facility] Comment on above: Performed By: #### L ACT #### [facility] [address] [place] [address] Dr. Kulwant Brennan Eosinophils/100 WBC (Bld) 3.3 % Normal 0.9-7.0 [facility] Comment on above: Performed By: #### L ACT #### [facility] [address] [place] [address] Dr. Kulwant Brennan Erythrocyte distribution width (RBC) [Ratio] 14.1 % Normal 11.0-15.0 [facility] Comment on above: Performed By: #### L ACT #### [facility] [address] [place] [address] Dr. Kulwant Brennan Hematocrit (Bld) [Volume fraction] 38.8 % Critically low 42.0-54.0 [facility] Comment on above: Performed By: #### L ACT #### [facility] [address] [address] [address] Kulwant Brennan Hemoglobin (Bld) [Mass/Vol] 12.4 g/dL Critically low 14.0-18.0 [facility] Comment on above: Performed By: #### L ACT #### [facility] [address] [address] [address] Kulwant Brennan IG # 0.04 10e3/ul Critically high 0.00-0.03 [facility] Comment on above: Performed By: #### L ACT #### [facility] [address] [address] [address] Kulwant Brennan IG % 0.5 % Normal 0.0-0.5 [facility] Comment on above: Performed By: #### L ACT #### [facility] [address] [address] [address] Kulwant Brennan LYMPH # 1.9 103/ul Normal 1.2-3.8 [facility] Comment on above: Performed By: #### L ACT #### [facility] [address] [place] [address] Dr. Kulwant Brennan Lymphocytes/100 WBC (Bld) 23.9 % Normal 20.5-60.0 [facility] Comment on above: Performed By: #### L ACT #### [facility] [address] [place] [address] Dr. Kulwant Brennan MANUAL DIFF REQ NO Normal [facility] Comment on above: Performed By: #### L ACT #### [facility] [address] [place] [address] Dr. Kulwant Brennan MCH (RBC) [Entitic mass] 27.5 pg Normal 25.9-34.0 [facility] Comment on above: Performed By: #### L ACT #### [facility] [address] [place] [address] Dr. Kulwant Brennan MCHC (RBC) [Mass/Vol] 32.0 g/dL Normal 29.9-35.2 [facility] Comment on above: Performed By: #### L ACT #### [facility] [address] [place] [address] Dr. Kulwant Brennan MCV (RBC) [Entitic vol] 86.0 fL Normal 80.0-94.0 [facility] Comment on above: Performed By: #### L ACT #### [facility] [address] [place] [address] Dr. Kulwant Brennan MONO # 0.9 103/ul Critically high 0.3-0.8 [facility] Comment on above: Performed By: #### L ACT #### [facility] [address] [place], [place] [id number] Dr. Kulwant Brennan Monocytes/100 WBC (Bld) 11.8 % Normal 1.7-12.0 [facility] Comment on above: Performed By: #### L ACT #### [facility] [address] [place] [address] Dr. Kulwant Brennan NEUT # 4.7 103/ul Normal 1.4-6.5 [facility] Comment on above: Performed By: #### L ACT #### [facility] [address] [place] [address] Dr. Kulwant Brennan Neutrophils/100 WBC (Bld) 60.0 % Normal 43.0-75.0 [facility] Comment on above: Performed By: #### L ACT #### [facility] [address] [place] [address] Dr. Kulwant Brennan Platelet mean volume (Bld) [Entitic vol] 10.0 fL Normal 9.5-13.5 [facility] Comment on above: Performed By: #### L ACT #### [facility] [address] [place] [address] Dr. Kulwant Brennan PLT 222 103/ul Normal 150-450 [facility] Comment on above: Performed By: #### L ACT #### [facility] [address] [place] [address] Dr. Kulwant Brennan RBC 4.51 106/ul Critically low 4.70-6.10 [facility] Comment on above: Performed By: #### L ACT #### [facility] [address] [place] [address] Dr. Kulwant Brennan WBC 7.9 103/ul Normal 4.0-11.0 [facility] Comment on above: Performed By: #### L ACT #### [facility] [address] [place], [place] [id number] Dr. Kulwant Brennan CT ABD/PELV W CONon 12-31-19 CT ABD/PELV W CON EXAMINATION: CT ABD/ PELV W CON HISTORY: UNSPECIFIED ABDOMINAL PAIN COMPARISON: 12/29/2021. TECHNIQUE: CT of abdomen/pelvis with intravenous contrast. Dose reduction techniques were achieved by using automated exposure control and/or adjustment of mA and/or kV according to patient size and/or use of iterative reconstruction technique. FINDINGS: Disintegrator: No pertinent findings, which are not already [...] ALIYA NEFF Date: 2021-12-30 21:29 Normal [facility] ER URINE PROFILEon 2 Bilirubin Ql (U) Negative Normal NEGATIVE [facility] Comment on above: Performed By: #### L ACT #### [facility] [address] [place], [place] [address] Dr. Kulwant Brennan Clarity (U) CLEAR Normal CLEAR [facility] Comment on above: Performed By: #### L ACT #### [facility] [address] [address] [address] Kulwant Brennan Color (U) LT. YELLOW Normal YELLOW [facility] Comment on above: Performed By: #### L ACT #### [facility] [address] [place] [address] Dr. Kulwant SCHWARTZ A micrscopic examina tion will be performed if indicated. Normal [facility] Comment on above: Performed By: #### L ACT #### [facility] [address] [place] [address] Dr. Kulwant Brennan Glucose Ql (U) Negative Normal NEGATIVE [facility] Comment on above: Performed By: #### L ACT #### [facility] [address] [place] [address] Dr. Kulwant Brennan Hemoglobin Ql (U) Negative Normal NEGATIVE [facility] Comment on above: Performed By: #### L ACT #### [facility] [address] [place] [address] Dr. Kulwant Brennan Ketones Ql (U) Negative Normal NEGATIVE [facility] Comment on above: Performed By: #### L ACT #### [facility] [address] [place] [address] Dr. Kulwant Brennan LEUKOCYTES Negative Normal NEGATIVE [facility] Comment on above: Performed By: #### L ACT #### [facility] [address] [place] [address] Dr. Kulwant Brennan Nitrite Ql (U) Negative Normal NEGATIVE [facility] Comment on above: Performed By: #### L ACT #### [facility] [address] [place] [address] Dr. Kulwant Brennan pH (U) 5.5 [pH] Normal 5-9 [facility] Comment on above: Performed By: #### L ACT #### [facility] [address] [place] [address] Dr. Kulwant Brennan SPEC GRAVITY >=1.030 Abnormal 1.005-<=1. 025 [facility] Comment on above: Performed By: #### L ACT #### [facility] [address] [place] [address] Dr. Kulwant Brennan UA PROTEIN Negative Normal NEGATIVE/ TRACE [facility] Comment on above: Performed By: #### L ACT #### [facility] [address] [place] [address] Dr. Kulwant Brennan UR MICRO IND NOT INDICATED Normal [facility] Comment on above: Performed By: #### L ACT #### [facility] [address] [place] [address] Dr. Kulwant Brennan Urobilinogen Qn (U) 0.2 {Luis'U}/dL Normal 0.2 - 1. 0 [facility] Comment on above: Performed By: #### L ACT #### [facility] [address] [place] [address] Dr. Kulwant Brennan LIPASEon 12-30-2021 Lipase [Catalytic activity/Vol] 105.0 U/L Normal 73.0-393.0 [facility] Comment on above: Performed By: #### H STROPN #### [facility] [address] [place] [address] Dr. Kulwant Brennan LIVER PROFILEon 12-30-2021 Albumin [Mass/Vol] 3.8 g/dL Normal 3.4-5.[address] [facility] Comment on above: Performed By: #### H STROPN #### [facility] [address] [place] [address] Dr. Kulwant Brennan Albumin/Globulin [Mass ratio] 1.0 {ratio} Normal [facility] Comment on above: Performed By: #### H STROPN #### [facility] [address] [place] [address] Dr. Kulwant Brennan ALP [Catalytic activity/Vol] 67 U/L Normal 46-116 [facility] Comment on above: Performed By: #### H STROPN #### [facility] [address] [place] [address] Dr. Kulwant Brennan ALT [Catalytic activity/Vol] 31 U/L Normal 16-63 [facility] Comment on above: Performed By: #### H STROPN #### [facility] [address] [place] [address] Dr. Kulwant Brennan AST [Catalytic activity/Vol] 21 U/L Normal 15-37 [facility] Comment on above: Performed By: #### H STROPN #### [facility] [address] [address] [address] Kulwant Brennan BILI, CONJUGATED 0.1 mg/dL Normal 0.0-0.2 [facility] Comment on above: Performed By: #### H STROPN #### [facility] [address] [place] [address] Dr. Kulwant Brennan Bilirubin [Mass/Vol] 0.5 mg/dL Normal 0.2-1.0 [facility] Comment on above: Performed By: #### H STROPN #### [facility] [address] [place] [address] Dr. Kulwant Brennan Globulin (S) [Mass/Vol] 3.7 g/dL Normal [facility] Comment on above: Performed By: #### H STROPN #### [facility] [address] [place] [address] Dr. Kulwant Brennan Protein [Mass/Vol] 7.5 g/dL Normal 6.4-8.[address] [facility] Comment on above: Performed By: #### H STROPN #### [facility] [address] [place] [address] Dr. Kulwant Brennan PROF CHEM 8 (BAS METB)on Anion gap [Moles/Vol] 14.5 mmol/L Normal [facility] Comment on above: Performed By: #### H STROPN #### [facility] [address] [place] [address] Dr. Kulwant Brennan Calcium [Mass/Vol] 7.5 mg/dL Critically low 8.5-10.1 [facility] Comment on above: Performed By: #### H STROPN #### [facility] [address] [place] [address] Dr. Kulwant Brennan Chloride [Moles/Vol] 104 mmol/L Normal 98-107 [facility] Comment on above: Performed By: #### H STROPN #### [facility] [address] [place] [address] Dr. Kulwant Brennan CO2 [Moles/Vol] 26.8 mmol/L Normal 21.0-32.0 [facility] Comment on above: Performed By: #### H STROPN #### [facility] [address] [address] [address] Kulawnt Brennan Creatinine [Mass/Vol] 1.31 mg/dL Critically high 0.70-1.30 [facility] Comment on above: Performed By: #### H STROPN #### [facility] [address] [address] [address] Kulwant Brennan EGFR-AF BRITISH >60 Normal >=60 [facility] Comment on above: Performed By: #### H STROPN #### [facility] [address] [address] [address] Kulwant Brennan EGFR-NON AF BRITISH 54 mL/min/1.73m2 Critically low >=60 [facility] Comment on above: Performed By: #### H STROPN #### [facility] [address] [address] [address] Kulwant Brennan Glucose [Mass/Vol] 97 mg/dL Normal 74-[address] [facility] Comment on above: Performed By: #### H STROPN #### [facility] [address] [address] [address] Kulwant Brennan Potassium [Moles/Vol] 4.3 mmol/L Normal 3.5-5.1 [facility] Comment on above: Performed By: #### H STROPN #### [facility] [address] [address] [address] Kulwant Brennan Sodium [Moles/Vol] 141 mmol/L Normal 136-145 [facility] Comment on above: Performed By: #### H STROPN #### [facility] [address] [address] [address] Kulwant Brennan Urea nitrogen [Mass/Vol] 25.0 mg/dL Critically high 7.0-18.0 [facility] Comment on above: Performed By: #### H STROPN #### [facility] [address] [address] [address] Kulwant Brennan Urea nitrogen/Creatinine [Mass ratio] 19.1 mg/mg Normal [facility] Comment on above: Performed By: #### H STROPN #### [facility] [address] [place] [address] Dr. Kulwant Brennan CBC AUTO DIFFon 12-29-2021 BASO # 0.0 103/ul Normal 0.0-0.1 [facility] Comment on above: Performed By: #### H STROPN #### [facility] [address] [place] [address] Dr. Kulwant Brennan Basophils/100 WBC (Bld) 0.5 % Normal 0.2-2.0 [facility] Comment on above: Performed By: #### H STROPN #### [facility] [address] [place] [address] Dr. Kulwant Brennan EO # 0.3 103/ul Normal 0.0-0.7 [facility] Comment on above: Performed By: #### H STROPN #### [facility] [address] [place] [address] Dr. Kulwant Brennan Eosinophils/100 WBC (Bld) 3.6 % Normal 0.9-7.0 [facility] Comment on above: Performed By: #### H STROPN #### [facility] [address] [place] [address] Dr. Kulwant Brennan Erythrocyte distribution width (RBC) [Ratio] 14.1 % Normal 11.0-15.0 [facility] Comment on above: Performed By: #### H STROPN #### [facility] [address] [place] [address] Dr. Kulwant Brennan Hematocrit (Bld) [Volume fraction] 39.0 % Critically low 42.0-54.0 [facility] Comment on above: Performed By: #### H STROPN #### [facility] [address] [place] [address] Dr. Kulwant Brennan Hemoglobin (Bld) [Mass/Vol] 12.5 g/dL Critically low 14.0-18.0 [facility] Comment on above: Performed By: #### H STROPN #### [facility] [address] [place] [address] Dr. Kulwant Brennan IG # 0.03 10e3/ul Normal 0.00-0.03 [facility] Comment on above: Performed By: #### H STROPN #### [facility] [address] [place] [address] Dr. Kulwant Brennan IG % 0.4 % Normal 0.0-0.5 [facility] Comment on above: Performed By: #### H STROPN #### [facility] [address] [place] [address] Dr. Kulwant Brennan LYMPH # 2.0 103/ul Normal 1.2-3.8 [facility] Comment on above: Performed By: #### H STROPN #### [facility] [address] [place] [address] Dr. Kulwant Brennan Lymphocytes/100 WBC (Bld) 28.0 % Normal 20.5-60.0 [facility] Comment on above: Performed By: #### H STROPN #### [facility] [address] [place] [address] Dr. Kulwant Brennan MANUAL DIFF REQ NO Normal [facility] Comment on above: Performed By: #### H STROPN #### [facility] [address] [place] [address] Dr. Kulwant Brennan MCH (RBC) [Entitic mass] 27.5 pg Normal 25.9-34.0 [facility] Comment on above: Performed By: #### H STROPN #### [facility] [address] [place] [address] Dr. Kulwant Brennan MCHC (RBC) [Mass/Vol] 32.1 g/dL Normal 29.9-35.2 [facility] Comment on above: Performed By: #### H STROPN #### [facility] [address] [place] [address] Dr. Kulwant Brennan MCV (RBC) [Entitic vol] 85.7 fL Normal 80.0-94.0 [facility] Comment on above: Performed By: #### H STROPN #### [facility] [address] [place] [address] Dr. Kulwant Brennan MONO # 1.0 103/ul Critically high 0.3-0.8 [facility] Comment on above: Performed By: #### H STROPN #### [facility] [address] [place] [address] Dr. Kulwant Brennan Monocytes/100 WBC (Bld) 14.0 % Critically high 1.7-12.0 [facility] Comment on above: Performed By: #### H STROPN #### [facility] [address] [place] [address] Dr. Kulwant Brennan NEUT # 3.9 103/ul Normal 1.4-6.5 [facility] Comment on above: Performed By: #### H STROPN #### [facility] [address] [place] [address] Dr. Kulwant Brennan Neutrophils/100 WBC (Bld) 53.5 % Normal 43.0-75.0 [facility] Comment on above: Performed By: #### H STROPN #### [facility] [address] [place] [address] Dr. Kulwant Brennan Platelet mean volume (Bld) [Entitic vol] 10.1 fL Normal 9.5-13.5 [facility] Comment on above: Performed By: #### H STROPN #### [facility] [address] [place] [address] Dr. Kulwant Brennan PLT 237 103/ul Normal 150-450 [facility] Comment on above: Performed By: #### H STROPN #### [facility] [address] [place] [address] Dr. Kulwant Brennan RBC 4.55 106/ul Critically low 4.70-6.10 [facility] Comment on above: Performed By: #### H STROPN #### [facility] [address] [place] [address] Dr. Kulwant Brennan WBC 7.3 103/ul Normal 4.0-11.0 [facility] Comment on above: Performed By: #### H STROPN #### [facility] [address] [place] [address] ABD/PELVIS WO CONon 12-29 CT ABD/PELVIS WO CON CT ABD/PELVIS WO CO N: 12/28/2021 11:46 PM EDT CLINICAL HISTORY: 66 [...] AMOS RAMIREZ Date: 2021-12-29 00:59 Normal [facility] PROF 14(COMP METB)on 022 Albumin [Mass/Vol] 4.0 g/dL Normal 3.4-5.[address] [facility] Comment on above: Performed By: #### H STROPN #### [facility] [address] [address] [address] Kulwant Brennan Albumin/Globulin [Mass ratio] 1.1 {ratio} Normal [facility] Comment on above: Performed By: #### H STROPN #### [facility] [address] [address] [address] Kulwant Brennan ALP [Catalytic activity/Vol] 68 U/L Normal 46-116 [facility] Comment on above: Performed By: #### H STROPN #### [facility] [address] [address] [address] Kulwant Brennan ALT [Catalytic activity/Vol] 27 U/L Normal 16-63 [facility] Comment on above: Performed By: #### H STROPN #### [facility] [address] [place] [address] Dr. Kulwant Brennan Anion gap [Moles/Vol] 12.8 mmol/L Normal [facility] Comment on above: Performed By: #### H STROPN #### [facility] [address] [address] [address] Kulwant Brennan AST [Catalytic activity/Vol] 16 U/L Normal 15-37 [facility] Comment on above: Performed By: #### H STROPN #### [facility] [address] [address] [address] Kulwant Brennan Bilirubin [Mass/Vol] 0.5 mg/dL Normal 0.2-1.0 [facility] Comment on above: Performed By: #### H STROPN #### [facility] [address] [address] [address] Kulwant Brennan Calcium [Mass/Vol] 7.4 mg/dL Critically low 8.5-10.1 [facility] Comment on above: Performed By: #### H STROPN #### [facility] [address] [address] [address] Kulwant Brennan Chloride [Moles/Vol] 102 mmol/L Normal 98-107 [facility] Comment on above: Performed By: #### H STROPN #### [facility] [address] [address] [address] Kulwant Brennan CO2 [Moles/Vol] 27.1 mmol/L Normal 21.0-32.0 [facility] Comment on above: Performed By: #### H STROPN #### [facility] [address] [address] [address] Kulwant Brennan Creatinine [Mass/Vol] 1.42 mg/dL Critically high 0.70-1.30 [facility] Comment on above: Performed By: #### H STROPN #### [facility] [address] [address] [address] Kulwant Brennan EGFR-AF BRITISH 60 mL/min/1.73m2 Normal >=60 [facility] Comment on above: Performed By: #### H STROPN #### [facility] [address] [address] [address] Kulwant Brennan EGFR-NON AF BRITISH 50 mL/min/1.73m2 Critically low >=60 [facility] Comment on above: Performed By: #### H STROPN #### [facility] [address] [address] [address] Kulwant Brennan Globulin (S) [Mass/Vol] 3.5 g/dL Normal [facility] Comment on above: Performed By: #### H STROPN #### [facility] [address] [address] [address] Kulwant Brennan Glucose [Mass/Vol] 139 mg/dL Critically high 74-106 [facility] Comment on above: Performed By: #### H STROPN #### [facility] [address] [address] [address] Kulwant Brennan Potassium [Moles/Vol] 3.9 mmol/L Normal 3.5-5.1 [facility] Comment on above: Performed By: #### H STROPN #### [facility] [address] [address] [address] Kulwant Brennan Protein [Mass/Vol] 7.5 g/dL Normal 6.4-8.[address] [facility] Comment on above: Performed By: #### H STROPN #### [facility] [address] [address] [address] Kulwant Brennan Sodium [Moles/Vol] 138 mmol/L Normal 136-145 [facility] Comment on above: Performed By: #### H STROPN #### [facility] [address] [address] [address] Kulwant Brennan Urea nitrogen [Mass/Vol] 27.0 mg/dL Critically high 7.0-18.0 [facility] Comment on above: Performed By: #### H STROPN #### [facility] [address] [address] [address] Kulwant Brennan Urea nitrogen/Creatinine [Mass ratio] 19.0 mg/mg Normal [facility] Comment on above: Performed By: #### H STROPN #### [facility] [address] [address] [address] Kulwant Brennan APTTon 12-13-2021 aPTT Coag (Bld) [Time] 32.8 s Normal 25.0-35.0 [facility] Comment on above: Order Comment: No: [...] THIS PURPOSE. Performed By: #### 5 [id number], [id number] #### [facility] [address] CBC COMPLETE BLOOD COUNT12-13-2021 Erythrocyte distribution width (RBC) [Ratio] 14.0 % Normal 11.5-15.0 [facility] Comment on above: Order Comment: No: D o not add to previous draw Performed By: #### 5 6101, [id number] #### [facility] [address] [place] [address], [facility] Hematocrit (Bld) [Volume fraction] 36.7 % Low 39.0-50.0 [facility] Comment on above: Order Comment: No: D o not add to previous draw Performed By: #### 5 [id number], [id number] #### [facility] [address] [place] [address], [facility] Hemoglobin (Bld) [Mass/Vol] 12.0 g/dL Low 13.0-17.0 [facility] Comment on above: Order Comment: No: D o not add to previous draw Performed By: #### 5 6100, 93339 #### [facility] [address] [place] [id number], [facility] MCH (RBC) [Entitic mass] 27.5 pg Normal 27.0-33.0 [facility] Comment on above: Order Comment: No: D o not add to previous draw Performed By: #### 5 6100, 10837 #### [facility] [address] [place] [address], [facility] MCHC (RBC) [Mass/Vol] 32.7 g/dL Normal 32.0-35.0 [facility] Comment on above: Order Comment: No: D o not add to previous draw Performed By: #### 5 6100, 56451 #### [facility] [address] [place] [address], [facility] MCV (RBC) [Entitic vol] 84.0 fL Normal 82.0-98.0 [facility] Comment on above: Order Comment: No: D o not add to previous draw Performed By: #### 5 6100, 43058 #### [facility] [address] [place] [id number], [facility] Nucleated RBC/100 WBC (Bld) [Ratio] 0 % Normal 0-0 [facility] Comment on above: Order Comment: No: D o not add to previous draw Performed By: #### 5 6100, 94919 #### [facility] [address] [place] [address], [facility] PLAT CNT 166 10*3/uL Normal 150-400 [facility] Comment on above: Order Comment: No: D o not add to previous draw Performed By: #### 5 610, 88996 #### [facility] [address] [place] [address], [facility] RBC (Bld) [#/Vol] 4.37 10*6/uL Normal 4.20-5.70 [facility] Comment on above: Order Comment: No: D o not add to previous draw Performed By: #### 5 610, 48077 #### [facility] [address] [place] [address], [facility] WBC (Bld) [#/Vol] 8.41 10*3/uL Normal 4.00-10.60 [facility] Comment on above: Order Comment: No: D o not add to previous draw Performed By: #### 5 610, 16648 #### [facility] [address] [place] [address], [facility] COMP METABOLIC PANELon 12-13 Albumin [Mass/Vol] 3.8 g/dL Normal 3.5-5.7 [facility] Comment on above: Order Comment: No: D o not add to previous draw Performed By: #### 5 610, 32161 #### [facility] [address] [place] [address], [facility] ALKALINE PHOSPH 52 IU/L Normal 34-104 [facility] Comment on above: Order Comment: No: D o not add to previous draw Performed By: #### 5 610, 20177 #### [facility] [address] [place] [address], [facility] ALT [Catalytic activity/Vol] 16 U/L Normal 7-52 [facility] Comment on above: Order Comment: No: D o not add to previous draw Performed By: #### 5 610, 59061 #### [facility] [address] [place] [address], [place] AST [Catalytic activity/Vol] 15 U/L Normal 13-39 [facility] Comment on above: Order Comment: No: D o not add to previous draw Performed By: #### 5 6100, 46712 #### [facility] [address] [place] [address], [place] Bilirubin [Mass/Vol] 0.9 mg/dL Normal 0.3-1.0 [facility] Comment on above: Order Comment: No: D o not add to previous draw Performed By: #### 5 6100, 73771 #### [facility] [address] [place] [address], [place] Calcium [Mass/Vol] 7.0 mg/dL Low 8.6-10.3 [facility] Comment on above: Order Comment: No: D o not add to previous draw Performed By: #### 5 6100, 66372 #### [facility] [address] [place] [address], [place] Chloride [Moles/Vol] 106 mmol/L Normal 98-107 [facility] Comment on above: Order Comment: No: D o not add to previous draw Performed By: #### 5 6100, 98865 #### [facility] [address] [place] [address], [place] CO2 [Moles/Vol] 27 mmol/L Normal 21-31 [facility] Comment on above: Order Comment: No: D o not add to previous draw Performed By: #### 5 6100, 47964 #### [facility] [address] [place] [address], [place] Creatinine [Mass/Vol] 1.16 mg/dL Normal 0.70-1.30 [facility] Comment on above: Order Comment: No: D o not add to previous draw Performed By: #### 5 6100, 29268 #### [facility] [address] [place] [address], [place] GFR/1.73 sq M.predicted among non-blacks MDRD (S/P/Bld) [Vol rate/Area] mL/min/{1.73_m2} Normal >60 [facility] Comment on above: Order Comment: No: D o not add to previous draw Result Comment: [facility]'s estimated glomerular filtration rate (eGFR) will [...] of individuals. Performed By: #### 5 6101, 13854 #### [facility] [address] [place] [address], [facility] Glucose [Mass/Vol] 104 mg/dL High 70-100 [facility] Comment on above: Order Comment: No: D o not add to previous draw Performed By: #### 5 6101, 85818 #### [facility] [address] [place] [address], [place] Potassium [Moles/Vol] 4.3 mmol/L Normal 3.5-5.1 [facility] Comment on above: Order Comment: No: D o not add to previous draw Performed By: #### 5 6101, 00142 #### [facility] [address] [place] [address], [place] Protein [Mass/Vol] 6.2 g/dL Normal 6.0-8.3 [facility] Comment on above: Order Comment: No: D o not add to previous draw Performed By: #### 5 6101, 69369 #### [facility] [address] [place] [address], [place] Sodium [Moles/Vol] 138 mmol/L Normal 136-145 [facility] Comment on above: Order Comment: No: D o not add to previous draw Performed By: #### 5 6101, 83386 #### [facility] [address] Urea nitrogen [Mass/Vol] 26 mg/dL High 7-25 [facility] Comment on above: Order Comment: No: D o not add to previous draw Performed By: #### 5 6101, 73765 #### [facility] [address] Cardiovascular Lab Reporton 12-13-2021 Cardiovascular Lab Report [facility] Patient Name: Yoli Antunez [facility] MR #: [id number] Physician: Mono Monter[facility] Date: 12/12/2021 Division of Birthdate: 1955 Cardiology Room #: [id number] Adult Cardiovascular Services [place] [address] Cardiovascular Laboratory Report INDICATION: The patient is [...] the right common femoral vein using a 6-Armenian ProGlide device. METHODS: Procedure was explained to the patient with risks and benefits, he signed informed consent. He was brought to label tacker in a fasting state. The procedure was [...] the right common femoral vein and a 6-Armenian x 11 cm sheath was placed. Preclosure in the vein was performed using a 6-Armenian ProGlide device, a transseptal wire was advanced [...] was retracted and exchanged to the Watchman 14-Armenian double curve access sheath. This was not [...] stiffer wire. This was performed using a 6-Armenian multipurpose catheter, through which we advanced a Lunderquist double curve wire and the distal end was placed in the left superior pulmonary vein. This eventually allowed to advance the sheath across the interatrial septum. A 6-Armenian angled pigtail catheter was advanced and used [...] the (more content not included)... Normal [facility] PROTHROMBIN TIMEon 2 INR Coag (PPP) [Relative time] 1.09 {INR} Normal 0.91-1.16 [facility] Comment on above: Order Comment: No: D o not add to previous draw Result Comment: ACCC P RECOMMENDED INR FOR WARFARIN THERAPY ------- ------- CONDITION INR PROPHYLAXIS OF VENOUS THROMBOSIS 2-3 (HIGH-RISK SURGERY) TREATMENT OF VENOUS THROMBOSIS 2-3 TREATMENT OF PULMONARY EMBOLISM 2-3 PREVENTION OF SYSTEMIC EMBOLISM: 2-3 ACUTE MYOCARDIAL INFARCTION TISSUE HEART VALVES VALVULAR HEART DISEASE ATRIAL FIBRILLATION RECURRENT SYSTEMIC EMBOLISM MECHANICAL HEART VALVE 2.5-3.5 FROM: ORAL ANTICOAGULANTS. MECHANISM OF ACTION, CLINICAL EFFECTIVENESS, AND OPTIMAL THERAPEUTIC RANGE. CHEST 1995;108:231S-246S. Performed By: #### 5 6101, 78119 #### [facility] [address] [place] [address], [facility] PT Coag (PPP) [Time] 14.1 s Normal 12.3-14.8 [facility] Comment on above: Order Comment: No: D o not add to previous draw Result Comment: ALL RESULTS MUST BE INTERPRETED WITH RESPECT TO BLOOD DRAWING ARTIFACT OR DILUTION ERROR OF ANTICOAGULANT AT THE TIME OF SAMPLING. Performed By: #### 5 6101, 06063 #### [facility] [address] [place] [address], [facility] TYPE AND SCREENon 12-12-2021 ABO INTERPRETATION O Normal [facility] Comment on above: Performed By: #### 6 2586 #### [facility] [address] [place] [address], [facility] RH INTERPRETATION Positive Normal [facility] Comment on above: Performed By: #### 6 2586 #### [facility] [address] [place] [address], [facility]on [facility]-20 SARS-CoV-2 (COVID-19) RNA MIKE+probe Ql (Unsp spec) Not detected Normal NOT DETECTED [facility] Comment on above: Result Comment: This test is not yet approved or cleared by the [place] FDA. When there are no FDA-approved or cleared tests available, and other criteria are met, FDA can make tests available under an emergency access mechanism called an Emergency Use Authorization (EUA). The EUA for this test is supported by the [place] of Health and Human Service's (HHS's) declaration [...] SARS-CoV-2. Performed By: #### L ACT #### [facility] [address] [address] [address] Kulwant Brennan *MRSA/MSSA DNA NASALon 11-21 *MRSA/MSSA DNA NASAL Clinical Report: (D ) Specimen: NASAL SWAB Collected: 11/21/2021 09:15 Status: Final Last Updated: 11/21/2021 12:32 MSSA DNA (Final) Negative MRSA DNA (Final) Negative Normal [facility] Comment on above: Performed By: #### 3 1595 #### [facility] [address] BASIC METABOLIC PANELon 08-0 Calcium [Mass/Vol] 7.0 mg/dL Low 8.6-10.3 [facility] Comment on above: Performed By: #### 0 0071 #### [facility] [address] [place] [address], [facility] Chloride [Moles/Vol] 105 mmol/L Normal 98-107 [facility] Comment on above: Performed By: #### 0 0071 #### [facility] [address] [place] [address], [facility] CO2 [Moles/Vol] 25 mmol/L Normal 21-31 [facility] Comment on above: Performed By: #### 0 0071 #### [facility] [address] Creatinine [Mass/Vol] 1.37 mg/dL High 0.70-1.30 [facility] Comment on above: Performed By: #### 0 0071 #### [facility] [address] EGFR 56 ml/min/1.73sq m Abnormal >60 [facility] Comment on above: Result Comment: [facility]'s estimated glomerular filtration rate (eGFR) will [...] individuals. Performed By: #### 0 0071 #### [facility] [address] [place] [id number], [facility] Glucose [Mass/Vol] 100 mg/dL Normal 70-100 [facility] Comment on above: Performed By: #### 0 0071 #### [facility] [address] [place] [address], [facility] Potassium [Moles/Vol] 4.6 mmol/L Normal 3.5-5.1 [facility] Comment on above: Performed By: #### 0 0071 #### [facility] [address] [place] [address], [place] Sodium [Moles/Vol] 139 mmol/L Normal 136-145 [facility] Comment on above: Performed By: #### 0 0071 #### [facility] [address] [place] [address], [facility] Urea nitrogen [Mass/Vol] 26 mg/dL High 7-25 [facility] Comment on above: Performed By: #### 0 0071 #### [facility] [address] [place] [address], [facility] CBC COMPLETE BLOOD COUNTon 0 11-21-2021 Erythrocyte distribution width (RBC) [Ratio] 14.2 % Normal 11.5-15.0 [facility] Comment on above: Performed By: #### 5 0561, [id number] #### [facility] [address] [place] [address], [place] Hematocrit (Bld) [Volume fraction] 40.6 % Normal 39.0-50.0 [facility] Comment on above: Performed By: #### 5 6101, 12264 #### [facility] [address] [place] [address], [facility] Hemoglobin (Bld) [Mass/Vol] 13.0 g/dL Normal 13.0-17.0 [facility] Comment on above: Performed By: #### 5 6100, 01642 #### [facility] [address] [place] [address], [facility] MCH (RBC) [Entitic mass] 27.0 pg Normal 27.0-33.0 [facility] Comment on above: Performed By: #### 5 6100, 84836 #### [facility] [address] [place] [address], [facility] MCHC (RBC) [Mass/Vol] 32.0 g/dL Normal 32.0-35.0 [facility] Comment on above: Performed By: #### 5 6100, 17925 #### [facility] [address] [place] [address], [facility] MCV (RBC) [Entitic vol] 84.4 fL Normal 82.0-98.0 [facility] Comment on above: Performed By: #### 5 6100, 91385 #### [facility] [address] [facility] [place] [address], [facility] Nucleated RBC/100 WBC (Bld) [Ratio] 0 % Normal 0-0 [facility] Comment on above: Performed By: #### 5 6100, 48346 #### [facility] [address] [place] [address], [facility] PLAT CNT 232 10*3/uL Normal 150-400 [facility] Comment on above: Performed By: #### 5 6100, 73822 #### [facility] [address] [place] [address], [facility] RBC (Bld) [#/Vol] 4.81 10*6/uL Normal 4.20-5.70 [facility] Comment on above: Performed By: #### 5 610, 65455 #### [facility] [address] [place] [address], [place] WBC (Bld) [#/Vol] 7.53 10*3/uL Normal 4.00-10.60 [facility] Comment on above: Performed By: #### 5 6101, 95138 #### [address] CHEST AND LATERALon 11-22-19 CHEST AND LATERAL [facility] Department of Radiology [address] [place] [id number] Patient Name: YOLI ANTUNEZ : 1955 [...] device. Electronically signed: Danilo Bhandari. Transcribed by: [email or web address], User Resident: Electronically Signed by: DANILO BHANDARI @ 11/21/2021 11:32 AM Normal [facility] Comment on above: Order Comment: No: D o not add to previous draw Covid-19 PCR (CVDTB)on 10-21 SARS-CoV-2 (COVID-19) RNA MIKE+probe Ql (Unsp spec) Not detected Normal NOT DETECTED [facility] Comment on above: Result Comment: This test is not yet approved or cleared by the [place] FDA. When there are no FDA-approved or cleared tests available, and other criteria are met, FDA can make tests available under an emergency access mechanism called an Emergency Use Authorization (EUA). The EUA for this test is supported by the [place] of Health and Human Service's (HHS's) declaration [...] consistent with SARS-CoV-2. Performed By: #### C PENDING SALE TO [facility] ####[facility] [id number] [place], [place] [address] Cardiovascular Lab Reporton 11-09-2021 Cardiovascular Lab Report [facility] MR #: [id number] Department of Physician: Lalito Joshi MD Medicine Service Date: 11/09/2021 Division of Birthdate: 1955 Cardiology Room #: Adult Cardiovascular Services [place] [address] Cardiovascular Laboratory Report LOOP IMPLANT PROCEDURE NOTE [...] the sternum on the left using the [employer] tool. The loop recorder was then injected [...] observed. LOOP details: Device Model: [id number] Serial#: [id number] Sensin.16mV. IMPRESSION: Successful placement of LOOP implant with excellent sensing parameters. RECOMMENDATIONS: 1. Occlusive dressing to be changed after 7 days. 2. Do not wet the incision. Lalito Joshi MD Cardiac Electrophysiology. Electronically Signed by: Lalito Joshi MD 11/10/2021 11:10 A Lalito Joshi MD Date Dict: 11/09/2021/08:45 A/Lalito Joshi MD Date Trans: 11/09/2021 11:32 A/liliane DN_[id number] cc: Radha Burris M.D. [address] [place] [address] Normal [facility] POC SARS COV2 IDon 2 SARS-CoV-2 (COVID-19) RNA MIKE+probe Ql (Unsp spec) Negative Normal NEGATIVE [facility] Comment on above: Result Comment: ID [...] of Accreditation. Performed By: #### 5 6101, [address] #### [address] BNPon 10-03-2021 Natriuretic peptide B (Bld) [Mass/Vol] 75.0 pg/mL Normal <=900.0 [facility] Comment on above: Performed By: #### H STROPN #### [facility] [address] [address] [address] Kulwant Brennan CARDIAC MAYELIN ADMITon 022 CK [Catalytic activity/Vol] 142 U/L Normal 39-308 [facility] Comment on above: Performed By: #### H STROPN #### [facility] [address] [address] [address] Kulwant Brennan CK.MB [Mass/Vol] 1.15 ng/mL Normal <=3.60 [facility] Comment on above: Performed By: #### H STROPN #### [facility] [address] [address] [address] Kulwant Brennan HSTROP 4.0 pg/mL Normal 4.0-76.1 [facility] Comment on above: Result Comment: CUT- OFF POINTS HAVE BEEN ESTABLISHED BASED ON THE FOURTH UNIVERSAL DEFINITIONS OF MYOCARDIAL INFARCTION. THE UPPER REFERENCE LIMIT (URL) OF TROPONIN, DEFINED THE 99TH PERCENTILE OF cTnI DISTRIBUTION IN A REFERENCE POPULATION, HAS BEEN CONFIRMED THE DECISION THRESHOLD FOR MO DIAGNOSIS. Performed By: #### H STROPN #### [facility] [address] [address] [address] Kulwant Brennan EFRAIN 57 ng/mL Normal 16-96 [facility] Comment on above: Performed By: #### H STROPN #### [facility] [address] [address] [address] Kulwant Brennan CBC AUTO DIFFon 10-03-2021 BASO # 0.0 103/ul Normal 0.0-0.1 [facility] Comment on above: Performed By: #### H STROPN #### [facility] [address] [address] [address] Kulwant Brennan Basophils/100 WBC (Bld) 0.4 % Normal 0.2-2.0 [facility] Comment on above: Performed By: #### H STROPN #### [facility] [address] [place] [address] Dr. Kulwant Brennan EO # 0.2 103/ul Normal 0.0-0.7 [facility] Comment on above: Performed By: #### H STROPN #### [facility] [address] [address] [address] Kulwant Brennan Eosinophils/100 WBC (Bld) 2.6 % Normal 0.9-7.0 [facility] Comment on above: Performed By: #### H STROPN #### [facility] [address] [place] [address] Dr. Kulwant Brennan Erythrocyte distribution width (RBC) [Ratio] 14.6 % Normal 11.0-15.0 [facility] Comment on above: Performed By: #### H STROPN #### [facility] [address] [place] [address] Dr. Kulwant Brennan Hematocrit (Bld) [Volume fraction] 43.0 % Normal 42.0-54.0 [facility] Comment on above: Performed By: #### H STROPN #### [facility] [address] [place] [address] Dr. Kulwant Brennan Hemoglobin (Bld) [Mass/Vol] 13.6 g/dL Critically low 14.0-18.0 [facility] Comment on above: Performed By: #### H STROPN #### [facility] [address] [place] [address] Dr. Kulwant Brennan IG # 0.03 10e3/ul Normal 0.00-0.03 [facility] Comment on above: Performed By: #### H STROPN #### [facility] [address] [place] [address] Dr. Kulwant Brennan IG % 0.4 % Normal 0.0-0.5 [facility] Comment on above: Performed By: #### H STROPN #### [facility] [address] [place] [address] Dr. Kulwnat Brennan LYMPH # 1.8 103/ul Normal 1.2-3.8 [facility] Comment on above: Performed By: #### H STROPN #### [facility] [address] [place] [address] Dr. Kulwant Brennan Lymphocytes/100 WBC (Bld) 25.3 % Normal 20.5-60.0 [facility] Comment on above: Performed By: #### H STROPN #### [facility] [address] [place] [address] Dr. Kulwant Brennan MANUAL DIFF REQ NO Normal [facility] Comment on above: Performed By: #### H STROPN #### [facility] [address] [place] [address] Dr. Kulwant Brennan MCH (RBC) [Entitic mass] 27.1 pg Normal 25.9-34.0 [facility] Comment on above: Performed By: #### H STROPN #### [facility] [address] [place] [address] Dr. Kulwant Brennan MCHC (RBC) [Mass/Vol] 31.6 g/dL Normal 29.9-35.2 [facility] Comment on above: Performed By: #### H STROPN #### [facility] [address] [place] [address] Dr. Kulwant Brennan MCV (RBC) [Entitic vol] 85.8 fL Normal 80.0-94.0 [facility] Comment on above: Performed By: #### H STROPN #### [facility] [address] [place] [address] Dr. Kulwant Brennan MONO # 0.8 103/ul Normal 0.3-0.8 [facility] Comment on above: Performed By: #### H STROPN #### [facility] [address] [place] [address] Dr. Kulwant Brennan Monocytes/100 WBC (Bld) 11.9 % Normal 1.7-12.0 [facility] Comment on above: Performed By: #### H STROPN #### [facility] [address] [place] [address] Dr. Kulwant Brennan NEUT # 4.1 103/ul Normal 1.4-6.5 [facility] Comment on above: Performed By: #### H STROPN #### [facility] [address] [place] [address] Dr. Kulwant Brennan Neutrophils/100 WBC (Bld) 59.4 % Normal 43.0-75.0 [facility] Comment on above: Performed By: #### H STROPN #### [facility] [address] [place] [address] Dr. Kulwant Brennan Platelet mean volume (Bld) [Entitic vol] 9.8 fL Normal 9.5-13.5 [facility] Comment on above: Performed By: #### H STROPN #### [facility] [address] [place] [address] Dr. Kulwant Brennan PLT 201 103/ul Normal 150-450 [facility] Comment on above: Performed By: #### H STROPN #### [facility] [address] [place] [address] Dr. Kulwant Brennan RBC 5.01 106/ul Normal 4.70-6.10 [facility] Comment on above: Performed By: #### H STROPN #### [facility] [address] [place] [address] Dr. Kulwant Brennan WBC 7.0 103/ul Normal 4.0-11.0 [facility] Comment on above: Performed By: #### H STROPN #### [facility] [address] [address] [address] HEAD WO CONon [...] by: DONNELL DU Date: 2021-10-03 11:41 Normal [facility] CTA CHEST WO W CONon 022 [...] DONNELL DU Date: 2021-10-03 11:50 Normal [facility] ER URINE PROFILEon 2 Bilirubin Ql (U) Negative Normal NEGATIVE [facility] Comment on above: Performed By: #### H STROPN #### [facility] [address] [address] [address] Kulwant Brennan Clarity (U) CLEAR Normal CLEAR [facility] Comment on above: Performed By: #### H STROPN #### [facility] [address] [address] [address] Kulwant Brennan Color (U) LT. YELLOW Normal YELLOW [facility] Comment on above: Performed By: #### H STROPN #### [facility] [address] [place] [address] Dr. Kulwant Brennan ERUAHD A micrscopic examina tion will be performed if indicated. Normal [facility] Comment on above: Performed By: #### H STROPN #### [facility] [address] [address] [address] Kulwant Brennan Glucose Ql (U) Negative Normal NEGATIVE [facility] Comment on above: Performed By: #### H STROPN #### [facility] [address] [address] [address] Kulwant Brennan Hemoglobin Ql (U) Negative Normal NEGATIVE [facility] Comment on above: Performed By: #### H STROPN #### [facility] [address] [address] [address] Kulwant Brennan Ketones Ql (U) Negative Normal NEGATIVE [facility] Comment on above: Performed By: #### H STROPN #### [facility] [address] [address] [address] Kulwant Brennan LEUKOCYTES Negative Normal NEGATIVE [facility] Comment on above: Performed By: #### H STROPN #### [facility] [address] [address] [address] Kulwant Brennan Nitrite Ql (U) Negative Normal NEGATIVE [facility] Comment on above: Performed By: #### H STROPN #### [facility] [address] [address] [address] Kulwant Brennan pH (U) 5.5 [pH] Normal 5-9 [facility] Comment on above: Performed By: #### H STROPN #### [facility] [address] [place] [address] Dr. Kulwant Brennan SPEC GRAVITY 1.025 Normal 1.005-<=1. 025 [facility] Comment on above: Performed By: #### H STROPN #### [facility] [address] [place] [address] Dr. Kulwant Brennan UA PROTEIN Negative Normal NEGATIVE/ TRACE [facility] Comment on above: Performed By: #### H STROPN #### [facility] [address] [place] [address] Dr. Kulwant Brennan UR MICRO IND NOT INDICATED Normal [facility] Comment on above: Performed By: #### H STROPN #### [facility] [address] [place] [address] Dr. Kulwant Brennan Urobilinogen Qn (U) 0.2 {Luis'U}/dL Normal 0.2 - 1. 0 [facility] Comment on above: Performed By: #### H STROPN #### [facility] [address] [place] [address] Dr. Kulwant Brennan PROF 14(COMP METB)on 022 Albumin [Mass/Vol] 3.9 g/dL Normal 3.4-5.[address] [facility] Comment on above: Performed By: #### H STROPN #### [facility] [address] [place] [address] Dr. Kulwant Brennan Albumin/Globulin [Mass ratio] 1.0 {ratio} Normal [facility] Comment on above: Performed By: #### H STROPN #### [facility] [address] [place] [address] Dr. Kulwant Brennan ALP [Catalytic activity/Vol] 59 U/L Normal 46-116 [facility] Comment on above: Performed By: #### H STROPN #### [facility] [address] [address] [address] Kulwant Brennan ALT [Catalytic activity/Vol] 30 U/L Normal 16-63 [facility] Comment on above: Performed By: #### H STROPN #### [facility] [address] [address] [address] Kulwant Brennan Anion gap [Moles/Vol] 13.4 mmol/L Normal [facility] Comment on above: Performed By: #### H STROPN #### [facility] [address] [address] [address] Kulwant Brennan AST [Catalytic activity/Vol] 14 U/L Critically low 15-37 [facility] Comment on above: Performed By: #### H STROPN #### [facility] [address] [address] [address] Kulwant Brennan Bilirubin [Mass/Vol] 0.6 mg/dL Normal 0.2-1.0 [facility] Comment on above: Performed By: #### H STROPN #### [facility] [address] [address] [address] Kulwant Brennan Calcium [Mass/Vol] 7.6 mg/dL Critically low 8.5-10.1 [facility] Comment on above: Performed By: #### H STROPN #### [facility] [address] [address] [address] Kulwant Brennan Chloride [Moles/Vol] 107 mmol/L Normal 98-107 [facility] Comment on above: Performed By: #### H STROPN #### [facility] [address] [address] [address] Kulwant Brennan CO2 [Moles/Vol] 24.4 mmol/L Normal 21.0-32.0 [facility] Comment on above: Performed By: #### H STROPN #### [facility] [address] [address] [address] Kulwant Brennan Creatinine [Mass/Vol] 1.36 mg/dL Critically high 0.70-1.30 [facility] Comment on above: Performed By: #### H STROPN #### [facility] [address] [address] [address] Kulwant Brennan EGFR-AF BRITISH >60 Normal >=60 [facility] Comment on above: Performed By: #### H STROPN #### [facility] [address] [address] [address] Kulwant Brennan EGFR-NON AF BRITISH 52 mL/min/1.73m2 Critically low >=60 [facility] Comment on above: Performed By: #### H STROPN #### [facility] [address] [address] [address] Kulwant Brennan Globulin (S) [Mass/Vol] 3.8 g/dL Normal [facility] Comment on above: Performed By: #### H STROPN #### [facility] [address] [address] [address] Kulwant Brennan Glucose [Mass/Vol] 99 mg/dL Normal 74-106 [facility] Comment on above: Performed By: #### H STROPN #### [facility] [address] [address] [address] Kulwant Brennan Potassium [Moles/Vol] 3.8 mmol/L Normal 3.5-5.1 [facility] Comment on above: Performed By: #### H STROPN #### [facility] [address] [address] [address] Kulwant Brennan Protein [Mass/Vol] 7.7 g/dL Normal 6.4-8.2 [facility] Comment on above: Performed By: #### H STROPN #### [facility] [address] [address] [address] Kulwant Brennan Sodium [Moles/Vol] 141 mmol/L Normal 136-145 [facility] Comment on above: Performed By: #### H STROPN #### [facility] [address] [address] [address] Kulwant Brennan Urea nitrogen [Mass/Vol] 24.0 mg/dL Critically high 7.0-18.0 [facility] Comment on above: Performed By: #### H STROPN #### [facility] [address] [address] [address] Kulwant Brennan Urea nitrogen/Creatinine [Mass ratio] 17.6 mg/mg Normal [facility] Comment on above: Performed By: #### H STROPN #### [facility] [address] [address] [address] Kulwant Brennan PROTIMEon 10-03-2021 INR Coag (PPP) [Relative time] 1.04 {INR} Normal [facility] Comment on above: Performed By: #### P T, PTT ####[facility] [id number] [address]Dr. Kulwant Brennan INR GUIDELINES SEE BELOW Normal [facility] Comment on above: Result Comment: HAYDEE RED INR: 2.0 - 3.0 CONDITIONS NOT LISTED BELOW 2.5 - 3.5 FOR PROSTHETIC HEART VALVE REPLACEMENT 2.5 - 3.5 RECURRENT THROMBOSIS Performed By: #### P T, PTT ####[facility] [id number] [place] [address]Dr. Kulwant Brennan PT Coag (PPP) [Time] 11.2 s Normal 9.0-11.6 [facility] Comment on above: Performed By: #### P T, PTT ####[facility] [id number] [place] [address]Dr. Kulwant Brennan PTTon 10-03-2021 aPTT Coag (Bld) [Time] 33.1 s Normal 22.3-36.2 [facility] Comment on above: Performed By: #### P T, PTT ####[facility] [address] [place] [address]DrAmarjit Brennan TROPONIN, HIGH SENSITIVITYon 10-03-2021 HSTROP 5.1 pg/mL Normal 4.0-76.1 [facility] Comment on above: Result Comment: CUT- OFF POINTS HAVE BEEN ESTABLISHED BASED ON THE FOURTH UNIVERSAL DEFINITIONS OF MYOCARDIAL INFARCTION. THE UPPER REFERENCE LIMIT (URL) OF TROPONIN, DEFINED THE 99TH PERCENTILE OF cTnI DISTRIBUTION IN A REFERENCE POPULATION, HAS BEEN CONFIRMED THE DECISION THRESHOLD FOR MO DIAGNOSIS. Performed By: #### H STROPN #### [facility] [address] [address] [address] Kulwant Brennan VC VENOUS REFLUX RIOS LMTon 0 10-03-2021 VC VENOUS REFLUX RIOS LMT Patient: YOLI ANTNUEZ Exam Date: 10/03/2021 : 1955 Gender:M Ordering : YANDEL LeathaAmarjit SHEN Admission #: [id number] Family : Order #: [id number] CLICK HERE TO VIEW EXAM RADIOLOGY REPORT [...] chronic thrombus visualized Compressibility: Normal Flow: Normal Risk Tech: Dist/med off PTV 2 mm, 0s reflux; [...] Du M.D. on 10/04/2021 at 12:09 Normal [facility] XR CHEST 1 Von 10-03-2021 XR [...] ELENA EMERY Date: 2021-10-03 13:00 Normal [facility] ANAon 09-29-2021 KYLE PATTERN NUCLEOLAR Normal [facility] Comment on above: Result Comment: The [...] authority. Performed By: #### 1 0196 #### [facility] [address] KYLE SCREEN 1:40 Normal <1:40,1:40 [facility] Comment on above: Result Comment: Test performed using KHALIDA IFA KYLE Hep-2 Test, a pre-standardized assay designed for the qualitative and semi-quantitative detection of antinuclear antibodies. Performed By: #### 1 [id number] #### [facility] [address] [place] [address], [facility] C REACTIVE PROTEINon 022 CRP [Mass/Vol] 3.1 mg/L Normal 0.0-7.0 [facility] Comment on above: Performed By: #### 5 [id number], [id number] #### [facility] [address] [place] [address], [facility] CYCLIC CITRULLINATED PEPTIDE AB 47331ep 09-29-2021 CYCLIC CIT PEP 4 Units Normal 0-19 [facility] Comment on above: Result Comment: INTE [...] be monitored and testing repeated. Performed By: [facility] [address] [place] [address] Fish Roe Technician: Jaz Villareal MD RHEUMATOID FACTOR SERUMon RA <20 Normal 0-20 [facility] Comment on above: Performed By: #### 5 [id number], [id number] #### [facility] [address] [place] [address], [facility] SEDIMENTATION RATEon SED RATE 12 mm/hr High 0-10 [facility] Comment on above: Performed By: #### 5 [id number] #### [facility] [address] [place] [address], [facility] US ANDREW DOP LEG BILon [...] ERICK DEL ANGEL Date: 2021-09-27 16:12 Normal [facility] CT Head or Brain w/o Contras t*on [...] by Hollis Cadet on 09/11/2021 1546 Normal [facility] Comprehensive Metabolic Pane julian 06-27-2021 Albumin [Mass/Vol] 4.9 g/dL Normal 3.6-5.1 [facility] Comment on above: Performed By: #### C MP #### [facility] [address], [place] [id number] Albumin/Globulin [Mass ratio] 1.8 {ratio} Normal 1.0-2.5 [facility] Comment on above: Performed By: #### C MP #### [facility] [address], [place] [id number] ALP [Catalytic activity/Vol] 83 U/L Normal 40-129 [facility] Comment on above: Performed By: #### C MP #### [facility] [address], [place] [id number] ALT [Catalytic activity/Vol] 20 U/L Normal 9-46 [facility] Comment on above: Result Comment: 03/22 Female reference range changed. Performed By: #### C MP #### [facility] [address], [place] [id number] Anion gap [Moles/Vol] 18 mmol/L Normal 12-20 [facility] Comment on above: Result Comment: Effe ctive 04/27/2019 reference range changed. Performed By: #### C MP #### [facility] [address], [place] [id number] AST [Catalytic activity/Vol] 18 U/L Normal 10-40 [facility] Comment on above: Performed By: #### C MP #### [facility] [address], [place] [id number] Bilirubin [Mass/Vol] 0.33 mg/dL Normal 0.30-1.20 [facility] Comment on above: Performed By: #### C MP #### [facility] [address], [place] [id number] BUN/CREA 20 Ratio Normal 6-22 [facility] Comment on above: Performed By: #### C MP #### [facility] [address], [place] [id number] Calcium [Mass/Vol] 8.4 mg/dL Low 8.6-10.2 [facility] Comment on above: Performed By: #### C MP #### [facility] [address], [place] [id number] Chloride [Moles/Vol] 106 mmol/L Normal 98-107 [facility] Comment on above: Performed By: #### C MP #### [facility] [address], [place] [id number] CO2 [Moles/Vol] 24 mmol/L Normal 20-31 [employer] Comment on above: Performed By: #### C MP #### [facility] [address], [place] [id number] Creatinine [Mass/Vol] 1.4 mg/dL Normal 0.7-1.4 [facility] Comment on above: Performed By: #### C MP #### [facility] [address], [place] [id number] eGFRAA 59 mL/min/1.73m2 Low >60 [facility] [employer] Comment on above: Performed By: #### C MP #### [facility] [address], [place] [id number] eGFRNAA 49 mL/min/1.73m2 Low >60 [facility] Comment on above: Performed By: #### C MP #### [facility] [address], [place] [id number] Globulin (S) [Mass/Vol] 2.7 g/dL Normal 1.9-3.7 [facility] [employer] Comment on above: Performed By: #### C MP #### [facility] [address], [place] [id number] Glucose [Mass/Vol] 98 mg/dL Normal 65-99 [facility] [employer] Comment on above: Result Comment: For FASTING Glucose --- ADA reference ranges: Normal 65-99 mg/dl Prediabetes 100-125 Diabetes >/= 126 Performed By: #### C MP #### [facility] [address], [place] [id number] Potassium [Moles/Vol] 5.0 mmol/L Normal 3.5-5.5 [facility] Comment on above: Performed By: #### C MP #### [facility] [address], [place] [id number] Protein [Mass/Vol] 7.6 g/dL Normal 6.1-8.1 [facility] [employer] Comment on above: Performed By: #### C MP #### [facility] [address], [place] [id number] Sodium [Moles/Vol] 143 mmol/L Normal 135-146 [facility] [employer] Comment on above: Performed By: #### C MP #### [facility] [address], [place] [id number] Urea nitrogen [Mass/Vol] 30 mg/dL High 7-25 [facility] Comment on above: Performed By: #### C MP #### [facility] [address], [place] [id number] Magnesiumon 06-07-2021 Magnesium [Mass/Vol] 2.0 mg/dL Normal 1.5-2.3 [facility] Comment on above: Performed By: #### V ITD, MG, PHOS #### [facility] [address], [place] [id number] Parathyroid Hormone, Intacto n 06-07-2021 PTH 12.53 pg/mL Low 16.00-65.0 0 [facility] Comment on above: Performed By: #### P TH* #### [facility] [address], [place] [id number] Phosphoruson 06-07-2021 Phosphate [Mass/Vol] 4.3 mg/dL Normal 2.2-4.4 [facility] Comment on above: Performed By: #### V ITD, MG, PHOS #### [facility] [address], [place] [id number] Q - CALCIUM,IONIZEDon 2021 CALCIUM, IONIZED 4.0 mg/dL Low 4.8-5.6 [facility] Comment on above: Order Comment: [facility] performed at: [facility], [facility], [address] [place] [address], [address] [place] [address], [id number], Fish Roe Technician: Janes Vasquez MDQuest Collection Date/Time: [id number] Results Received Date/Time: [id number] Reported Date/Time: Performed By: #### C MP, CBCAD, TSH #### [facility] [address], [place] [id number] Vitamin D 25-OHon 06-07-2021 VIT D 25 OH 27 ng/ml Low >29 [facility] [employer] Comment on above: Result Comment: Merlene min D Status Deficiency <20 ng/mL Insufficiency 20-29 ng/mL Optimal 30-100 ng/mL Possible Toxicity >=150 ng/mL Performed By: #### V ITD, MG, PHOS #### [facility] [address], [place] [id number] Complete Blood Count with Au to Diffon 06-06-2021 Basophils (Bld) [#/Vol] 0.04 10*3/uL Normal 0.00-0.20 [facility] Comment on above: Performed By: #### C MP, CBCAD, TSH #### [facility] [address], [place] [id number] Basophils/100 WBC (Bld) 0.6 % Normal [facility] Comment on above: Performed By: #### C FILIBERTO CBCAD, TSH #### [facility] [address], [place] [id number] Eosinophils (Bld) [#/Vol] 0.28 10*3/uL Normal 0.02-0.50 [facility] [employer] Comment on above: Performed By: #### C FILIBERTO, CBCAD, TSH #### [facility] [address], [place] [id number] Eosinophils/100 WBC (Bld) 4.1 % Normal [facility] [employer] Comment on above: Performed By: #### C FILIBERTO CBCAD, TSH #### [facility] [address], [place] [id number] Erythrocyte distribution width (RBC) [Ratio] 14.5 % Normal 11.0-15.0 [facility] [employer] Comment on above: Performed By: #### C FILIBERTO, CBCAD, TSH #### [facility] [address], [place] [id number] Hematocrit (Bld) [Volume fraction] 43.0 % Normal 38.5-50.0 [facility] Comment on above: Performed By: #### C FILIBERTO, CBCAD, TSH #### [facility] [address], [place] [id number] Hemoglobin (Bld) [Mass/Vol] 13.7 g/dL Normal 13.0-17.1 [facility] [employer] Comment on above: Performed By: #### C FILIBERTO, CBCAD, TSH #### [facility] [address], [place] [id number] Lymphocytes (Bld) [#/Vol] 1.6 10*3/uL Normal 0.9-3.9 [facility] Comment on above: Performed By: #### C FILIBERTO, CBCAD, TSH #### [facility] [address], [place] [id number] Lymphocytes/100 WBC (Bld) 22.6 % Normal [facility] Comment on above: Performed By: #### C FILIBERTO, CBCAD, TSH #### [facility] [address], [place] [id number] MCH (RBC) [Entitic mass] 26.1 pg Low 27.0-33.0 [facility] Comment on above: Performed By: #### C FILIBERTO, CBCAD, TSH #### [facility] [address], [place] [id number] MCHC (RBC) [Mass/Vol] 31.9 g/dL Low 32.0-36.0 [facility] Comment on above: Performed By: #### C FILIBERTO, CBCAD, TSH #### [facility] [address], [place] [id number] MCV (RBC) [Entitic vol] 82 fL Normal 80-100 [facility] Comment on above: Performed By: #### C FILIBERTO, CBCAD, TSH #### [facility] [address], [place] [id number] Monocytes (Bld) [#/Vol] 0.7 10*3/uL Normal 0.2-0.9 [facility] Comment on above: Performed By: #### C MP, CBCAD, TSH #### [facility] [address], [place] [id number] Monocytes/100 WBC (Bld) 10.1 % Normal [facility] Comment on above: Performed By: #### C MP, CBCAD, TSH #### [facility] [address], [place] [id number] Neutrophils (Bld) [#/Vol] 4.3 10*3/uL Normal 1.5-7.8 [facility] [employer] Comment on above: Performed By: #### C FILIBERTO, CBCAD, TSH #### [facility] [address], [place] [id number] Neutrophils/100 WBC (Bld) 62.0 % Normal [facility] Comment on above: Performed By: #### C MP, CBCAD, TSH #### [facility] [address], [place] [id number] Platelet mean volume (Bld) [Entitic vol] 10.90 fL Normal 7.50-12.50 [facility] Comment on above: Performed By: #### C MP, CBCAD, TSH #### [facility] [address], [place] [id number] Platelets (Bld) [#/Vol] 250 10*3/uL Normal 140-400 [facility] Comment on above: Performed By: #### C MP, CBCAD, TSH #### [facility] [address], [place] [id number] RBC (Bld) [#/Vol] 5.25 10*6/uL Normal 4.20-5.80 [facility] Comment on above: Performed By: #### C MP, CBCAD, TSH #### [facility] [address], [place] [id number] RDW-SD 43.3 fL Normal 37.0-50.0 [facility] Comment on above: Performed By: #### C MP, CBCAD, TSH #### [facility] [address], [place] [id number] WBC (Bld) [#/Vol] 6.9 10*3/uL Normal 3.8-11.0 [facility] [employer] Comment on above: Performed By: #### C MP, CBCAD, TSH #### [facility] [address], [place] [id number] Comprehensive Metabolic Pane julian 06-06-2021 Albumin [Mass/Vol] 4.7 g/dL Normal 3.6-5.1 [facility] [employer] Comment on above: Performed By: #### C MP, CBCAD, TSH #### [facility] [address], [place] [id number] Albumin/Globulin [Mass ratio] 1.8 {ratio} Normal 1.0-2.5 [facility] Comment on above: Performed By: #### C MP, CBCAD, TSH #### [facility] [address] [facility] [place] [id number] ALP [Catalytic activity/Vol] 87 U/L Normal 40-129 [facility] Comment on above: Performed By: #### C MP, CBCAD, TSH #### [facility] [address], [place] [id number] ALT [Catalytic activity/Vol] 22 U/L Normal 9-46 [facility] Comment on above: Result Comment: 03/22 Female reference range changed. Performed By: #### C MP, CBCAD, TSH #### [facility] [address] [facility] [place] [place] [id number] Anion gap [Moles/Vol] 20 mmol/L Normal 12-20 [facility] Comment on above: Result Comment: Effe ctive 04/27/2019 reference range changed. Performed By: #### C MP, CBCAD, TSH #### [facility] [address], [place] [id number] AST [Catalytic activity/Vol] 18 U/L Normal 10-40 [facility] Comment on above: Performed By: #### C MP, CBCAD, TSH #### [facility] [address], [place] [id number] BUN/CREA 19 Ratio Normal 6-22 [facility] Comment on above: Performed By: #### C MP, CBCAD, TSH #### [facility] [address], [place] [id number] Calcium [Mass/Vol] 7.4 mg/dL Low 8.6-10.2 [facility] Comment on above: Performed By: #### C MP, CBCAD, TSH #### [facility] [address] [facility] [place] [id number] Chloride [Moles/Vol] 106 mmol/L Normal 98-107 [facility] Comment on above: Performed By: #### C MP, CBCAD, TSH #### [facility] [address] [facility] [place] [id number] CO2 [Moles/Vol] 20 mmol/L Normal 20-31 [employer] Comment on above: Performed By: #### C MP, CBCAD, TSH #### [facility] [address], [place] [id number] Creatinine [Mass/Vol] 1.5 mg/dL High 0.7-1.4 [facility] Comment on above: Performed By: #### C MP, CBCAD, TSH #### [facility] [address], [place] [id number] eGFRAA 59 mL/min/1.73m2 Low >60 [facility] [employer] Scientist Comment on above: Performed By: #### C MP, CBCAD, TSH #### [facility] [address], [place] [id number] eGFRNAA 48 mL/min/1.73m2 Low >60 [facility] Comment on above: Performed By: #### C MP, CBCAD, TSH #### [facility] [address], [place] [id number] Globulin (S) [Mass/Vol] 2.6 g/dL Normal 1.9-3.7 [facility] [employer]ist Comment on above: Performed By: #### C MP, CBCAD, TSH #### [facility] [address], [place] [id number] Glucose [Mass/Vol] 112 mg/dL High 65-99 [facility] [employer]ist Comment on above: Result Comment: For FASTING Glucose --- ADA reference ranges: Normal 65-99 mg/dl Prediabetes 100-125 Diabetes >/= 126 Performed By: #### C MP, CBCAD, TSH #### [facility] [address], [place] [id number] Potassium [Moles/Vol] 4.3 mmol/L Normal 3.5-5.5 [facility] [employer] Comment on above: Performed By: #### C MP, CBCAD, TSH #### [facility] [address], [place] [id number] Protein [Mass/Vol] 7.3 g/dL Normal 6.1-8.1 [facility] [employer] Comment on above: Performed By: #### C MP, CBCAD, TSH #### [facility] [address], [place] [id number] Sodium [Moles/Vol] 142 mmol/L Normal 135-146 [facility] Comment on above: Performed By: #### C FILIBERTO, CBCAD, TSH #### [facility] [address], [place] [id number] TBIL <0.3 Normal [facility] Comment on above: Performed By: #### C FILIBERTO, CBCAD, TSH #### [facility] [address], [place] [id number] Urea nitrogen [Mass/Vol] 27 mg/dL High 7-25 [facility] Comment on above: Performed By: #### C FILIBERTO, CBCAD, TSH #### [facility] [address], [place] [id number] Q - TROPONIN Ion 06-06-2021 TROPONIN I 3 ng/L Normal < OR = 47 [facility] Comment on above: Order Comment: [employer] performed at: [place], [employer] [facility], [address] [place] [address], [address] [place] [address], [id number], Fish Roe Technician: Janes Vasquez MDQuest Collection Date/Time: [id number] Results Received Date/Time: [id number] Reported Date/Time: Result Comment: In accord with published recommendations, serial testing of troponin I at intervals of 2 to 4 hours for up to 12 to 24 hours is suggested in order to corroborate a single troponin I result. An elevated troponin alone is not sufficient to make the diagnosis of MO. Performed By: #### C FILIBERTO, CBCAD, TSH #### [facility] [address], [place] [id number] TSHon 06-06-2021 TSH 0.917 uIU/mL Normal 0.400-4.50 0 [facility] Comment on above: Performed By: #### C FILIBERTO, CBCAD, TSH #### [facility] [address], [place] [id number] Coding Summary.on 10-27-2020 Coding Summary. [id number] Gh0bWw+ PGhlYWQ+ZI6THVYpO34ikDCmsF2 NY2uOWQ3LAUWMWNWXIO7NYE6ygE G5AIijP0CsunQo HyufrKGeBC60LJu6EOV1jOagCOs yhT1afKYxG0u2DjGlAJ37vX01GA zpCVToPxY8IpZtfwzonKWh I8gbIgAgvPOoBfk+PHRhYmxlIHd zEBNlWTflHERhRsSwaOhmUG2oZv 9yZGVyLWNvbGxhcHNlOiBj d9qkLYMxYTtkXL7irUzoM4DuhUJ 8DIJkr4d8Vu19eWK+AHSaGLN4cA myDSakb162GgPgt8kyYMQ5 kXVgKRgyFRX1P47qj6B0PHLxEMO dORR9tYZ7pY4ffWfwqscdG4RalV MtYbJ7SIY8dQIyzO8fkPpp kpwjgI4qDhk+Y34FLR1NXYZJPY5 SHyi4Q2McCkxvnLG+ZB34YLYwDS 24cJPcfCBwe2wfpNn1BdWd HGZzHCM4hMfkWAylx6AuRHEsH01 pwGAha7V0EQWtlIbvcQTwXlYpuG L6lM1sRFplgzprv2gndfve Amlhm5eprw48sO10C09zUAafLPW qQYU8OUBaGLNaxJkdgg8agB7dMr 8+KMilt8cgy5wzvPv2KnIg OAYdibYyxSkcDLL7n3KkKm69E1P peGakf6ApUci8ac25fXDso6Q1aF G5SSybHDCwjE6gIUhaHeW3 EUJzEvColW81xTFzDOshMb6noQx bcMcjAE7fNTXckckrMZSwbN5eTN QawPTseAjeCI8dWWYvflyi o888HmBjNXX0DJYllKXlN4QfmR4 tToEnEHZkVKEhQ1CdyNFcTCnxI4 64HZoxXlY5XNTbgmEpE8Ih WVJkdEqnMwL9k3S8Si6Oz1Menps sDHA7FMvrFTR7QkN4GrOkYvR1P0 TiSdv9YXZrtVphIZ0rG0Hl COKkqrxtrrtwfQX5MZIcEZQthT5 4wEMyNBgwBe5bp0P9a613RZShUU SolA18Xp0lcYsnSTIxbLTO eY9vgpfyu1yydbgjPrPiPIHzGSu 2UCu9IVPalTolLxKtGGF6AdJ5SV T6eCWdnM7eiChwjzvqpC3v Oyc+X03onA4hEEI4IAK9hvqnQWJ qxvZcGZ37YX48Q5XuXrutvEZadX U+AHSferKihRtfME4cTkVo r1zoa4XkDFdwD4PjSPZqGBooHqv 9GCLrRLU4jAD8mD4mBFKwRHxys1 W3oBR7L8VkvtQqdd1sh9ah XOVgWEnwF14jgOImj8M1FPYiuED 5MSNtwJvkLnIusK62Jwr+PGNvbG smx2ZwFfjcf4hye5gugMg7 VmIvSUBqqrWdtDciSWI9s4RvRh2 6W70fTPzwEZEwANRxZARaRPXehP cvwx8kyN9xVs7+PGNvbCB3 tYK1cO3wWCWoVkD2DHlvB298ZfQ lxNScCgoqt7hys9ixyFf9YeTrIE PqqhLyrZluRNH1t8IyWc02 V12aGStrTPCbQDEjCFPfFAVwnQm tdk7tlT9dCn9+WO8hb3qpfu48kS 48dHI+YBSuNSJ7oMxtBJpo PYMptY8gEZscStE9VDSuGmRfqI1 2fZByDTipSq0adJiziXotRN6gPU Puhkefm459YnPuv0ceDNMv rMMtTGxhZIN3P39wh3Y2KMPxVKK jLRF8wBQ9nF3qmNogyjpqiSHhjI zkcpZsaUcxZUyuXTzsJ530 IHRvcDsnPlBhdGllbnQgTmFtZTo 6E1ItOlv8APShrJjkZY2cyALuOJ etRv7knOappLzrWT4bDVAw vduwk174ZoPjc8ntEQDvkKJyPUr eQNO3O64wt7U6BTUzADYuUTF9fU A7oR2rrVnnifaghCRkkOco koTkzTpiDHjhVXjpJ418RQSsvBn bKbHndqMvHCJcuLP4VC28RM82fO Afp1E6qJQ6N9QdUPAakisq ircchHF1FCDpQJLtfG89Fc6blBs qLy9qRTJjOMO9YCSpwLYqF4VewZ 2pDgVcKKPyXGKoO4ZdqWZm ZThmZ240BSreWhF8RDFjjhMqY2G gTDWtgDfqTuG1x8J4Jw2IN8V3AC 46GE42dYDzu7Q0gTF7O7Gr ZHZpufadveyikKH6BWKxFTVzfT6 1Ie0jeSlxMd9vDYJbNBO2OKChcO UlC2FefT0cQbPkIJPeBXVz Q4HoyMYaDNfbV580GFaiTkE2VTA akuYiO0DcSNElcOqfJoO9c1S2Jt 7QEEb8JG09DH09gUGie9W4 hNH6Z5JlVKWaxqpmwcyivVV8YCN fVXKxjF87Lp9naCbsLw3jKDXlFT W5PBWrjIYgU9KsuR9qWsLp IDExXUUiZ0EdtOXvFGuvO703TKv dZxE6XSJycrRsP9EgCRZkjYiuIo T7o6U2Zu7CPPJnMN79YQJ6 kNB6HT32RJ53A8BfSqxhdYBqwLB +PHRhYmxlIHdpZHRoPScxMDAlJy CmhQadYK3mHt6dKASgJIZt sVqydNSpVfXbm5qgULMcFAyrOC8 dqAgwQ8FufNQ1KZTzj7h2Tq18N8 2cO1GvqLQ+XVYkuEX8qTH8 gD1lMoZiSwC8SBcjW182GvEwdME bJibli8deh8vuhMp0TpP6BKNmvl JkpPssJGC0i6UtTa79E99j IHdpZHRoPSIxNSUiIHZhbGlnbj0 daL2aEi2+BBVedVM5rRL7wD9yFe CrYbT6UVkoW647DiWhbZNp Wsdgl2hlu3junLx4NiJjHKOxldK maRlrTPX2p3EuAt55T8BuuQxxq1 XhFay4uh58xBJuy2W5fZB1 T8EnJVAekszhtYMhdIhxZQ2bJVA pxwmmEHUhmM8rXGVzY3c4DtZhMg S1KWcxU9UqmyN7VXAfoDDy DJzgTJY8I66yt9H1GGTfVQCeVYK 6mIT6jF2fdHdrtfjbfSRbgHopwt FlcTsvJZqsKKwzT206LFRf eGpiKGAcwC5zAVLhvEPxrMlvIV1 wNTBpbjsnPkFVRFJJVFNIIEpSLC CVBgKIZQUPS7rpVVgmbYK+ NMQdSBX8gJlxPHfmZOLjhP0gLCG oD8r5BaSwWqZ4DVaiI8TvUEWdac wlZq66eI1hXfZdSrM5CHnx K3OcdjJ9RMHuxIKiATxhNQK1V91 rc9N5VMOvXZDwOKU2vGR0nX4pzE lnbjogbGVmdDsgdmVydGlj TCtcQCybW497AEQyjSahWfZeEpE cJjP7UBX8N2HmLha6CEZedEnmNG 1dxIByGQimHp3erSzmjEfv GH2gZBBlovnkBUOqhW9tABYslDD ibWmcPQ9kPDEcuvrzt832YvPwZW T2XRHenXTcK3GvyO0gQuFf NGXkYEKqP6HpbNHdCBoaP529UYg fGuS5FRWhqdTdQ5OqHSZnmFsjIv F0k9C5Vu80IiPEBCQjfrlq dGQ+SGMmDZN9gPvrFEibATOnmH6 dKBJkL4d0ThUfMoR1DTwhY3GtLN LzicheZf91oR1fTpJcJfE9 BMcgE1HiakK4OGFmiMNyTQsoOTR 1T76uo0V9MHKrVIUrCMU4wNR6mA 1hbGlnbjogbGVmdDsgdmVy qMpeMPagFWxkC554WYHbbGpbIm0 waFP5G9WiDdd0DXCivNdwMB2esF VcAMbjOh0thZoymBxcQN5d UPMxgjzfZERvoD6wOYUotPNbcDg xXX9cWSXwlxuvi695AyAeRNO7RZ ZstHGmC0MvlY2nIsXpXBEa CQUaN7AazTEaEQlvJ124GXsaJqI 1ARIrmqEcT6BhMAVbjXzmSbY4w7 G5Nu7XdVFyJ7RwG5z5Y3Lc PjwvdHI+XV09WXHrOR28yHGzfYB se8dohYe4FbKnHLOoVTO5lSxqWF fdw1XaNPYhJ90vnUIas7D8 NXLhjOafjRJpRoUotPX6mH1wMGo clzpqx5glzebmYjgml0osib35tF 80R81wZQsaIVGkUIBeSUSb HHEdwOdibm7ovZ7gJl7+PGNvbCB 0sRT9dT4tUgOvWhI9BBztA191Gx YstUVcXoxif9gbk4cieDa2 RrMxHHZzlfJjsEmvSVG3b7QtWr7 9R13lUWdxZPAnQBPmLNLnEKVxrI tdib2ycW3wLg7+LY5ax6sk gr20sX48cLM+RUEjSGR2lVonBMh xZIEueE7pHZlcDtS0QIGhWfVviG 07xLOvYFodJh3esUfvvZtl YJ4hWEMqqwhpm082MmIsp0ndLJS ldMHcJObzMNQ5D62kn9W7MKZzBO OoEGD1lMA8yW1zoZsiwxxt ePYdhWdtdrFhaEuzXRqhXArpZ88 1KUGqdMstPeEvrNWyR5wjdjFQNT 1lOjwvdGQ+WTAsLUU0mJxo GOtvVYMarU7xEZUzJ8i4XmXkHjP 1QFxoQ9JfqdJ0AJFgwWVcPMLtbF JVnT1avcalo2zwpafoNbYg WPKgOZy0EZq7OULhrBztQcXpAII 8DlM1KUB4cVDnsB9yoIajgrfotK 9wOyc+RklOOjwvdGQ+PHRk DXJ8zGgjRBpeRTWjjI7kCMQgH8h 5XnHnQeO5YMzwU6DdyxD5KEIsnT MfYSTfkRBQyC7elgrfu5js vihqEnBcPNAzHKg3FHm5GOGyqKm zUoLdIHN4QcI6NTY0gJAvuZ6nwE opsdkwgC1qDus+TVJOOjwv dGQ+CVIyDRB3iIdvOClnHDSmeH9 oZQPmT9z9ZoDzRuK9KDheJ2Kiae V4RIWiuZAjQFTaoQBVxR0p ooqar8jumcucNlLjFRCoVQf8IXe 5ONDdkIkiNqRrNKN6WvB3OGO6pE RafR5cqOaojyqezO9kAon+ DDZ7TQD3HY44CT04K6UeTiiywYP ibGU+PHRhYmxlIHdpZHRoPScxMD HxYxAnqRdlNO8lCb6vQWZs LWNv (more content not included)... Normal [facility] Auto Diffon 10-18-2020 Basophils/100 WBC (Bld) 1.2 % Normal 0.0-2.0 [facility] Comment on above: Order Comment: Order Added by Discern Expert. Performed By: #### 2 [id number], [id number], [id number] ####[address] [address] Basophils/Leukocytes Auto (Bld) [Pure # fraction] 0.1 E9/L Normal 0.0-0.2 [facility] Comment on above: Order Comment: Order Added by Discern Expert. Performed By: #### 2 [id number], [id number], [id number] ####[address] [address] Eosinophils/100 WBC (Bld) 1.8 % Normal 0.0-8.0 [facility] Comment on above: Order Comment: Order Added by Discern Expert. Performed By: #### 2 [id number], [id number], [id number] ####[address] [address] Eosinophils/Leukocyt es Auto (Bld) [Pure # fraction] 0.1 E9/L Normal 0.0-0.5 [facility] Comment on above: Order Comment: Order Added by Discern Expert. Performed By: #### 2 [id number], [id number], [id number] ####[address] [address] Lymphocytes/100 WBC (Bld) 27.6 % Normal 14.0-50.0 [facility] Comment on above: Order Comment: Order Added by Discern Expert. Performed By: #### 2 [id number], [id number], [id number] ####[address] [address] Lymphocytes/Leukocyt es Auto (Bld) [Pure # fraction] 2.1 E9/L Normal 1.0-4.0 [facility] Comment on above: Order Comment: Order Added by Discern Expert. Performed By: #### 2 [id number], [id number], [id number] ####[address] [place] [address] Monocytes/100 WBC (Bld) 9.6 % Normal 4.0-14.0 [facility] Comment on above: Order Comment: Order Added by Discern Expert. Performed By: #### 2 [id number], [id number], [id number] ####[address] [place] [address] Monocytes/Leukocytes Auto (Bld) [Pure # fraction] 0.7 E9/L Normal 0.2-1.0 [facility] Comment on above: Order Comment: Order Added by Discern Expert. Performed By: #### 2 [id number], [id number], [id number] ####[address] [address] Neutrophils/100 WBC (Bld) 59.8 % Normal 36.0-75.0 [facility] Comment on above: Order Comment: Order Added by Discern Expert. Performed By: #### 2 [id number], [id number], [id number] ####[address] [address] Neutrophils/Leukocyt es Auto (Bld) [Pure # fraction] 4.6 E9/L Normal 2.0-7.5 [facility] Comment on above: Order Comment: Order Added by Discern Expert. Performed By: #### 2 [id number], [id number], [id number] ####[facility] [id number] [place] [address] BMPon 10-18-2020 Anion gap [Moles/Vol] 11 mmol/L Normal 6-16 [facility] Comment on above: Performed By: #### 2 [id number], [id number], [id number] ####[facility] [id number] [place] [address] Calcium [Mass/Vol] 8.0 mg/dL Low 8.9-11.1 [facility] Comment on above: Performed By: #### 2 [id number], [id number], [id number] ####[facility] [address] [place] [address] Chloride [Moles/Vol] 107 mmol/L Normal 101-111 [facility] Comment on above: Performed By: #### 2 687027, [id number], 0693351 ####[facility] [address] [place] [address] CO2 [Moles/Vol] 24 mmol/L Normal 21-31 [facility] Comment on above: Performed By: #### 2 733539, 59807071, 9710831 ####[facility] [address] [place] [address] Creatinine [Mass/Vol] 1.5 mg/dL High 0.5-1.3 [facility] Comment on above: Performed By: #### 2 359754, 57575631, 8076731 ####[facility] [address] [place] [address] Glucose [Mass/Vol] 95 mg/dL Normal 55-199 [facility] Comment on above: Result Comment: If t his glucose result represents a fasting glucose, interpretation should refer to the following reference range: 55-99 mg/dL Performed By: #### 2 965553, [id number], 8342335 ####[facility] [address] [place] [address] Potassium [Moles/Vol] 3.9 mmol/L Normal 3.5-5.3 [facility] Comment on above: Performed By: #### 2 375991, 48573655, 8010584 ####[facility] [address] [place] [address] Sodium [Moles/Vol] 138 mmol/L Normal 135-145 [facility] Comment on above: Performed By: #### 2 330761, 55380464, 7546479 ####[facility] [address] [place] [address] Urea nitrogen [Mass/Vol] 29 mg/dL High 5-21 [facility] Comment on above: Performed By: #### 2 641935, 02827990, 8874672 ####[facility] [address] [place] [address] Urea nitrogen/Creatinine [Mass ratio] 19 No Units Normal 10-20 [facility] Comment on above: Performed By: #### 2 315221, 03144526, 8960222 ####[facility] [address] [place] [address] CBC w/ Auto Diffon Erythrocyte distribution width (RBC) [Ratio] 15.7 % High 10.9-14.2 [facility] Comment on above: Performed By: #### 2 013331, 8147055, [id number] ####[address] [address] Hematocrit (Bld) [Volume fraction] 39.9 % Normal 37.7-49.0 [facility] Comment on above: Performed By: #### 2 459953, 6207012, 87720925 ####[facility] [address] [place] [address] Hemoglobin (Bld) [Mass/Vol] 13.3 g/dL Low 13.5-17.5 [facility] Comment on above: Performed By: #### 2 425476, 6828499, 53066759 ####[facility] [address] [place] [address] MCH (RBC) [Entitic mass] 27.1 pg Normal 27.0-34.0 [facility] Comment on above: Performed By: #### 2 662759, 7090975, 07616171 ####[facility] [address] [place] [address] MCHC (RBC) [Mass/Vol] 33.3 g/dL Normal 31.4-36.0 [facility] Comment on above: Performed By: #### 2 046643, 3338213, 37678519 ####[facility] [address] [place] [address] MCV (RBC) [Entitic vol] 81.4 fL Normal 80.0-100.0 [facility] Comment on above: Performed By: #### 2 658986, 5067671, 73235757 ####[place] [address] [place] [address] Platelet mean volume (Bld) [Entitic vol] 9.2 fL Normal 6.4-10.8 [facility] Comment on above: Performed By: #### 2 508583, 3211896, 71065377 ####[address] [address] Platelets (Bld) [#/Vol] 223.0 E9/L Normal 150.0-500. 0 [facility] Comment on above: Performed By: #### 2 907178, 1990377, 42851198 ####[address] [address] RBC (Bld) [#/Vol] 4.9 E12/L Normal 4.3-5.9 [facility] Comment on above: Performed By: #### 2 176418, 9541385, 01314952 ####[address] [address] WBC corrected for nucl RBC Auto (Bld) [#/Vol] 7.6 E9/L Normal 4.0-11.0 [facility] Comment on above: Performed By: #### 2 645323, 5243077, 32749281 ####[address] [place] [address] Capillary Glucose POCon 09-21 Glucose [Mass/Vol] 118 mg/dL High 55-99 [facility] Comment on above: Result Comment: Erika heart RN/ Performed By: #### 2 [id number] ####[address] [address] Consent for Treatmenton 09-21 Consent for Treatment [id number]:127 Normal [facility] Discharge Instructionson Discharge Instructions [id number]:127 Normal [facility] ED Clinical Summaryon 2020 ED Clinical Summary (Inserted Image. Daya ble to display) [place] [id number] ED Clinical Summary Person Information Name: YOLI ANTUNEZ JR Yazmin/[facility] Age: 65 Years : 1955 Sex: Male Language: [place] PCP: RADHA BURRIS MD Marital Status: Visit [...] 10/18/2020 10:31:18 10/18/2020 10:31:18 10/18/2020 10:31:18 ADDRESS: [address] [place] [phone] PHYS DOC NOTES: MEDICAL INFORMATION: Prescriptions Given: [...] days 10/21/2020 With: Address: When: RADHA BURRIS [address] [place], [place] [id number] [employer] ([employer] In 3 days DIAGNOSIS: AF (paroxysmal atrial fibrillation) Normal [facility] ED Note-Physicianon 10-19-19 ED Note-Physician Basic [...] taken off his metoprolol at that time. [employer] Consultant is Dr. Modi at [facility]. Troponin negative. Electrolytes unremarkable. CBC with baseline [...] normal sinus rhythm. I called the patient's rn rehab Dr. Joshi. We discussed the patient's history, presentation, diagnostic work-up, vitals. After this discussion he reports the patient is okay to follow-up with him as an outpatient. He will call the patient and schedule a pacemaker visit. I discussed the rn rehab recommendations with the patient. He would like discharge home. I did offer the patient admission for further work-up and treatment for his chest discomfort which he declined. He does not wish to stay for second troponin level. Return precautions were discussed. He was instructed follow-up with his primary care doctor and rn rehab. Patient expresses understanding of agreement this plan. [...] IV Disposit (more content not included)... Normal [facility] Comment on above: Result Comment: Elec [...] diagnosed with: ? Electrocardiogram (ECG). ? Ambulatory cardiac surgeon. This device records your heartbeats for 24 [...] a stroke (more content not included)... Normal [facility] ED Patient Summaryon 021 ED Patient Summary (Inserted Image. Daya ble to display) [address] [address] Patient Discharge Instructions Person Information Name: YOLI ANTUNEZ JR Age: 65 Years Arrival Date: 10/18/2020 07:56:12 Discharge Diagnosis: AF (paroxysmal atrial fibrillation) Primary Care Physician: RADHA BURRIS MD Provider Information Primary Provider: Oscar Sandoval DO Advanced Guitar Repairer:None The exam and treatment you received in the Emergency Department were for an urgent problem and are not intended as complete care. It is important that you follow up with a doctor, nurse practitioner, or physician?s funeral assistant for ongoing care. If your symptoms [...] days 10/21/2020 With: Address: When: RADHA BURRIS [address] [place] [phone] [facility] () In 3 days In the event that this physician does not participate in your insurance network, please consult with your insurance company to find a nearby participating provider. Patient Education Materials: Atrial Fibrillation A MESSAGE TO ALL PATIENTS REGARDING OPIOIDS PRESCRIPTION OPIOIDS: WHAT YOU NEED TO KNOW Prescription opioids can be used to help relieve tbhulydt-vg-felosv pain and are often prescribed following a [...] guidance from the Food and Drug Administration (www.fda.gov/Drugs/Resource sForYou). ? Visit www.cdc.gov/drugoverdose to learn about the risks of opioids abuse and overdose. ? If you believe you may be struggling with addiction, tell your heal (more content not included)... Normal [facility] Magnesiumon 10-18-2020 Magnesium [Mass/Vol] 2.0 mg/dL Normal 1.3-2.4 [facility] Comment on above: Performed By: #### 2 291836, 89298268, 6364482 ####[facility] [address] [place] [address] Troponin 0 Hr.on 10-18-2020 Troponin I.cardiac [Mass/Vol] 3.00 pg/mL Low 15.90-38.4 0 [facility] Comment on above: Result Comment: The 95% CI (Confidence Interval) PPV (Positive Predictive Value) for myocardial infarction in females is 38 pg/mL, in males 51 pg/mL. The results should be used in conjunction with clinical conditions of myocardial infarction. (Access High Sensitivity Troponin I Instructions For Use, Bret Leonardo, November 2017) Performed By: #### 2 732127, 5024591, [id number] ####[facility] [address] [place] [address] XR Chest Single Viewon 10-18 XR Chest [...] V. Transcribed by: MALINI Technologist: JUWAN Normal [facility] eGFRon 10-18-2020 GFR/1.73 sq M.predicted among blacks MDRD (S/P/Bld) [Vol rate/Area] 57 mL/min/1.73 m2 Low >=59 [facility] Comment on above: Order Comment: Order added by Discern Expert. Result Comment: eGFR is race adjusted. AA=. Performed By: #### 2 426070, 76274755, 3179287 ####[facility] [address] [place] [address] GFR/1.73 sq M.predicted among non-blacks MDRD (S/P/Bld) [Vol rate/Area] 47 mL/min/1.73 m2 Low >=59 [facility] Comment on above: Order Comment: Order added by Discern Expert. Result Comment: Digital Associate Media Director nikki kidney disease could be indicated at eGFR's of less than 60 mL/min/1.73m2. Kidney failure is indicated at less than 15 mL/min/1.73m2. Performed By: #### 2 616796, 39711992, 3358041 ####[facility] [address] [address] Coding Summary.on 09-22-2020 Coding Summary. CD:[id number] Gh0bWw+ PGhlYWQ+NZ9VKZUcK58utEPbmB4 SW2xOYE1OIEMCMQCEZM4CBD2eoS J5NCugL7KxfjXf SnpixFMnAK21QOp5CBE8lLvwZZg juO8vbWTjZ0h9NoQaRH31yF45VU koTYUsSvB3EpXqryhqhBQq R2njCjDcaXTzCbd+PHRhYmxlIHd yYKIwYBekRNNeYwPatRtqWW3mZk 9yZGVyLWNvbGxhcHNlOiBj r6nsEPDbGYamNJ0msUgsD6LgvLJ 5YSRkp4u2Fw57lGY+SHFcHLM5iA flZTqma028TnWql8evSZS4 fXQeYNlcVBV1K32ek2V7FHIxAYZ hGRC4fPF0cM6vrYkncgdbK5RhpM AlUfU1MWV9fRXvbA3hiOsl exvxjJ4eJri+B33ALR5EBNMKBI7 LMvr5A6MkYwjauLI+NM22EVAmJP 87xKIjsUOxp9dzcUp4KzMu BYHpDTG6qLknNQhcg4CgAMXvF48 vtJKuy5P2OETrvWdtqTNoRbEkkZ C0kB8mJXlwjrmdg9uinnsl Tully9zjly76cS94E09gGHmgCYZ kIXJ4OKVkVVUdwDzusi3duF0rIx 8+OEsis9xxc1kgoIo2DoXc PHFaaqSpqGphEHJ2p5KtRu02V5S hwBtmo5ZcBbl5un70tWWtk8W4pV Q6DAajYWEjtY1iCNgsUzY6 GMKzHxBttP40tKLbJWkzTw1hzLq rqYcrSI6lWMPezfvnNYLbgB7xCV FhyBBxgLbcQE9iULYiwdru x975PiAeCOH2WALskVGyM0UkuG1 vLyDkBYYvBPEfL6FgoWTfDQcwL5 10HOpsYiI1MJTlkgSqR2Vz YJTteSrhEeN8u8U7Kc2Kg0Hoqhg fNIU6JJwfYKC8IzTjAsOtAqU2I5 OhNvx2PTUvcMiuZQ8lL9Hl JDAdpmqezvsybCY6VOVeQLWedP1 4xDZfFKejGn3ty5W7b378SPVvJN LreP53Ya7ymWycWGVjxHEH oQ6mvvqkm5cjlqswXkWkEIDqSUp 4TQw3BKRehHxhJeVqIQL7PtE6XR X5eSFvkE3odPmvftlgaE9k Oyc+O98rvM5kLDC0AKK5bdutGWT qcqFlYW22EC06O2HrCtqaqYFbwY U+MJNcakUvbOrsAC7pIuUl m7slr8WdLKboP8HzXHLsYLkgNwn 3ZSZkIYS1zQL5eV8vSQWxEFddx2 T6lZO4G6FfgvImqn2ty7xd PTRsRXzsD82vtLAao7Q1TTDroRE 0PEBivIxcVsJjaJ53Epk+PGNvbG ant0VkAsiym6gnj9rerPo2 DnWmNBHmovKmcWfxUAO9t6CyOl8 6A57tDJfcMXCpSMUgEWIkSZIsjQ bdkj2ybF9nRf0+PGNvbCB3 tWY7kN8jPOSkKtZ0BZwiH866OcG vgKHdXtuwq8lar6zawSx4EgMsZB FsoeFvpDvgZKM5w3XmXv49 E99sXAmpXKEqUAMbDWEvOCCkdKv maq0gqG8kRy4+TK3ue3abkw54dX 48dHI+VGCkXCA6vZhnQBrz LKGteT6xWXvdInL5HETwLzTitT2 7nOQsAUnsAr9anSyrkCngOV3bGR Xiwsijh236IhQyw5dkZUIy eJPmBWhbVJA3W46hx1F0CKIqFNA lTUV1iRA2dW4qmFgoousvxECpjB nerwYoaClkYPqfNVgrW008 IHRvcDsnPlBhdGllbnQgTmFtZTo 6R5BcGfs4GZSmuCohHZ5qnRHkSY rfFb9sfIuisLeyZY3fRZQe jhhfd931QnNal4gmOLVdzBQxQXt dGKJ3V85yw0V0IDKxTWGtBUV7iT C4mI1qhIgqnobuvNVfzOtr szDloPbdRYdjVKtfC478NGFioAi rPeVrhyVgRMVskID7PP49KT58iR Xce2V6kKJ8X8TdVGDohzad nhkicHJ3XMQdKLYroN17It9bnIy vTq2qFWHpOMR3IFSqnXHbZ2JtmQ 5fZyJkCFNrYKJjI8YrjNXg UVxoG955ODrqNgS4IEHjepWjZ8A uJBAkcKzwUmB1x7F1De8BP5H1LG 11ZJ60sGGhs6E1iIG0B6Xs RLJjrlxcgieciPL5JSWoDDQehJ5 6Sn3ljQxdLl3iQLTsUYP4SZZfnX BtV1GwqH8tEpUzKZIoLKTi G8DadRZqXJkvZ607IUjtEdB5LAA tktFlB4QcFFCyuWorKrL8y9Q1Ri 6RWJx8UM75LA28mYGqx5T4 hNR8U3MdCFVquasgqersvTM4XAZ pHNMwiT90Gu9abTmoIy6sMUCrKG F2LVEvvNBhP3NnuO3sOrPl FUMvLPNsR1SwgWJqWDxgJ956YIq rFpA0VPDqfrTaL7NhCWLhxRojOl X3m5M1Gg4LYDGpNP17FAZ8 cIB9IU23BY47R0LjLqjejKYxiSP +PHRhYmxlIHdpZHRoPScxMDAlJy WawWwmKJ0qMd2zWODnYBXw jBxqoEXkUnUmw8qbSWSlYOvwHW4 kpVynN8FcvMR4QRTdq3v7Kz70I0 5eI2MlxSZ+BEYtkTO5cTS8 lY2aRnZkBlL1FJesF290OoLduDA iBwbst8cmg8kdyZa8GeO7GJDxti HocKxbADV3t4RbLv21S67l IHdpZHRoPSIxNSUiIHZhbGlnbj0 dhB5oEz8+EEWlvWY1tXD9uX6gYc NiVpS4ACktP679DmJckQUc Lssfu2dpz9smvGn1NdYpVXSoceC qaYeaRBQ8c0BgCv13G9BewLqsb6 LcWsx0xv72wRObv1X9kSP0 N8TyZJZjojdqcNKswMsbPQ2wDJT qndheUTUlxP9yOHAxO2q3AdTiYa Z8ZElfK4JxgjD8OTVyvEAw CVdaXZE0B12hv2C7QDZrGATmHIZ 7hMS4cT9yyViliuitnDStkRdmjp GdyUmrUIozCMhnF572YDVb eYacMRDjuE8fGIEfzIJneNacTC7 wNTBpbjsnPkFVRFJJVFNIIEpSLC YCLmACUCWXD7osDEjxbWG+ TNIxKAX8dEbiYEgaEEJsiG1hHVU sT3b4BqFzWzT3FLutO5HtJEDvni rmTw89bS5xQhBgKzA0KVng W9IsusB6RZKluYFmHLvuUMR8X78 mg1B9POVtIIDnWUZ0gTR1mN5bbU lnbjogbGVmdDsgdmVydGlj XTfuQMplQ830IZNrcBdxDfEwPpB hNvG3GLD7X7XdMeu3PULrkPttLW 1wrRUeBJqeQz6fqTnxzUmf FT6aIWAksirfSIEedI6qWFVwgVG chCkbXE8bXZOhqnyok624TeRuZS Q0TEGpwOXeH8MrcO0cTcDv GFYrWPKrM0YhqKXgIJezZ451JZs rXaW2NGJccuPbJ6MfAKLvkSglZc M6t6P1Kx41JzFYYOMqvsfe dGQ+ORUgKGM9sOhfDYdlSXUrwK7 zVYNrE7l6VnDsEtM2UYkhV0EvYU BuscftVc52tP3hBjYpXiS1 MUyvZ3DetxY7QZKlcVLbEZasSYY 3V06wr0J5JNWdOMAuQJI7zRT0mR 1hbGlnbjogbGVmdDsgdmVy yJezULfaNRruE587ZLPoaWmwTg8 wkVQ1V1YvNmj5QLRhlRkeVG5qwO CjOMhaVf0ezHkaoMqrXB3v PZXughtpIVLumB1pHYKduQUepOs cZR3tDGUpwqgds356FuPtIIF8YA MfoQMcJ9XqmN0eSkWeGPBb GYIyR9MirWXeQDmkW248HNgqAfZ 9URGrxpHwK4ZwNUEltYisJlA0j3 L3Lc7DwSVkW6QgM6m0G9Sq PjwvdHI+SK79VSAyWU23mGRwzYB hd9jfgCl1YhFqLWGcELU5qOuwAV ymv2DeJTRvL39vsRLhe5Z9 YTWtbSxeiEMlTsVhtTT9aJ0bPDy xfgkry1iwvxoqQplst2zmsp46kK 17K88kOHqaONNjTDUzIFCu QTRveWtrmy0eaT2mKv3+PGNvbCB 1kXP7aI5cKuTdCxB1YGipF358Kz DyaXYgKtpwj2yvs4jupVs3 QxHoPFDqkfJsqYjrXUV0r5ZaQm5 0I51rZDpsNXOjGREkPEHjSSNflU hzrb7siL9zKm6+EL1qu5qq am06uZ48nGA+ERXbZWR8jTqoCVu mGQDpbK5lXPmfAaO8SBJkQkKjcO 76tRSjSRxrIm1xkWdxmDjc HT8iXWMrkyhzg964BnJdg3ihFJK xiZDhGMyqXJW1L55zo0G1PKLpZF WzZGQ2iEU9rF0ewQmwbymi pZTouWqqvhBmgGjmHBypMXpbB47 4YLXwdSpiTeMcaCMdT0rdmiFDWU 1lOjwvdGQ+OALvZUH8sVda GUniHGHlnH5hERWsG7l6NgIeOmK 4JYrmW6WgjfH1FIOzkEXiQIYddY KElG1vyfpfq7igolbjBlAa TVMmNFd3UXo5VHUicWjoElFvMFK 6OsM1BPK0rVPckR0ucIxcrfzycZ 9wOyc+RklOOjwvdGQ+PHRk POD2yNfjXNghQHMrcW3lKCQoO3v 3QwBxVkB4IBqvD2FsszV0PHArfY MkZMImnMBMuU2pewart5sd xonoCdJoIUTpVOv9NTm2XGOuoPq rHcWzVVO3GsV7EUP6kITciS8tcK yqxtzncU8nHzs+TVJOOjwv dGQ+MOMyMWG5tYrbMHmeAINxjW5 qNWGwG1t1LdJfIfQ8ULxkD8Rsdm G4RFRrrZLeSMUmbSLAhA0f kudwi6dxflmaDdBiEJYhKGn8WQh 4PFEtoRdtLgDbIYS8AxT0KPV5vI WqlH4xtWlxssczsR8gFot+ KEJ9VGC9RP54ZS22P9SvOhhuqSF ibGU+PHRhYmxlIHdpZHRoPScxMD OiYiVggUaoML3kJl9zXBKq LWNv (more content not included)... Normal [facility] Auto Diffon 09-13-2020 Basophils/100 WBC (Bld) 0.6 % Normal 0.0-2.0 [facility] Comment on above: Order Comment: Order Added by Discern Expert. Performed By: #### 1 [id number], 8401979, 81298245, 8585922, 7807832 #### [facility] [address] [place] [address] Basophils/Leukocytes Auto (Bld) [Pure # fraction] 0.0 E9/L Normal 0.0-0.2 [facility] Comment on above: Order Comment: Order Added by Discern Expert. Performed By: #### 1 9867631, 9690968, 46009301, 3800231, 3727894 #### [facility] [address] [place] [address] Eosinophils/100 WBC (Bld) 2.9 % Normal 0.0-8.0 [facility] Comment on above: Order Comment: Order Added by Discern Expert. Performed By: #### 1 0552930, 8763065, 58210335, 7762161, 4368922 #### [facility] [address] [place] [address] Eosinophils/Leukocyt es Auto (Bld) [Pure # fraction] 0.2 E9/L Normal 0.0-0.5 [facility] Comment on above: Order Comment: Order Added by Discern Expert. Performed By: #### 1 7719602, 4178060, 23781601, 9982574, 2406479 #### [facility] [address] [place] [address] Lymphocytes/100 WBC (Bld) 27.2 % Normal 14.0-50.0 [facility] Comment on above: Order Comment: Order Added by Discern Expert. Performed By: #### 1 6278191, 5326952, 56123638, 8492631, 8215032 #### [facility] [address] [place] [address] Lymphocytes/Leukocyt es Auto (Bld) [Pure # fraction] 2.0 E9/L Normal 1.0-4.0 [facility] Comment on above: Order Comment: Order Added by Discern Expert. Performed By: #### 1 5969959, 6349798, 74336170, 7592584, 4874231 #### [facility] [address] [place] [address] Monocytes/100 WBC (Bld) 7.9 % Normal 4.0-14.0 [facility] Comment on above: Order Comment: Order Added by Discern Expert. Performed By: #### 1 1306025, 3142816, 26625261, 7870470, 6208881 #### [facility] [address] [place] [address] Monocytes/Leukocytes Auto (Bld) [Pure # fraction] 0.6 E9/L Normal 0.2-1.0 [facility] Comment on above: Order Comment: Order Added by Discern Expert. Performed By: #### 1 2107981, 1336342, 28087942, 3045843, 4327400 #### [facility] [address] [place] [address] Neutrophils/100 WBC (Bld) 61.4 % Normal 36.0-75.0 [facility] Comment on above: Order Comment: Order Added by Discern Expert. Performed By: #### 1 1807552, 4395460, 07344956, 9403489, 6465490 #### [facility] [address] [place] [address] Neutrophils/Leukocyt es Auto (Bld) [Pure # fraction] 4.5 E9/L Normal 2.0-7.5 [facility] Comment on above: Order Comment: Order Added by Discern Expert. Performed By: #### 1 5028065, 0894524, 15924421, 5489041, 5006962 #### [facility] [address] [place] [address] BMPon 09-13-2020 Anion gap [Moles/Vol] 13 mmol/L Normal 6-16 [facility] Comment on above: Performed By: #### 1 3729738, 6416133, 98013811, 2796623, 2027811 #### [facility] [address] [place] [address] Calcium [Mass/Vol] 7.0 mg/dL Abnormal 8.9-11.1 [facility] Comment on above: Result Comment: Crit ical Result verified by repeat analysis\Critical Result S_CA.0 Called to [facility] AT ER by QUAN SWEET And Read Back For Confirmation at: 09/13/2020 09:41:51 Performed By: #### 1 2154872, 1499689, 14876411, 1427050, 0979577 #### [facility] [address] [place] [address] Chloride [Moles/Vol] 110 mmol/L Normal 101-111 [facility] Comment on above: Performed By: #### 1 1486887, 3297175, 14858482, 4168495, 3172398 #### [facility] [address] [place] [address] CO2 [Moles/Vol] 22 mmol/L Normal 21-31 [facility] Comment on above: Performed By: #### 1 5175747, 7217471, 43408082, 9736273, 1462355 #### [facility] [address] [place] [address] Creatinine [Mass/Vol] 1.5 mg/dL High 0.5-1.3 [facility] Comment on above: Performed By: #### 1 8626332, 9774162, 92045552, 9465221, 8648618 #### [facility] [address] [place] [address] Glucose [Mass/Vol] 111 mg/dL Normal 55-199 [facility] Comment on above: Result Comment: If t his glucose result represents a fasting glucose, interpretation should refer to the following reference range: 55-99 mg/dL Performed By: #### 1 8555109, 2316415, 19547589, 2343292, 4068166 #### [facility] [address] [place] [address] Potassium [Moles/Vol] 4.2 mmol/L Normal 3.5-5.3 [facility] Comment on above: Performed By: #### 1 9777432, 9984225, 62941895, 8842277, 1562259 #### [facility] [address] [place] [address] Sodium [Moles/Vol] 141 mmol/L Normal 135-145 [facility] Comment on above: Performed By: #### 1 7516005, 5632243, 07212428, 7835239, 6725414 #### [facility] [address] [place] [address] Urea nitrogen [Mass/Vol] 26 mg/dL High 5-21 [facility] Comment on above: Performed By: #### 1 6489073, 3289413, 57304442, 5761429, 6963135 #### [facility] [address] [place] [address] Urea nitrogen/Creatinine [Mass ratio] 17 No Units Normal 10-20 [facility] Comment on above: Performed By: #### 1 [id number], 5277752, [id number], 5776114, 5592480 #### [facility] [address] [place] [address] CBC w/ Auto Diffon Erythrocyte distribution width (RBC) [Ratio] 15.3 % High 10.9-14.2 [facility] Comment on above: Performed By: #### 1 [id number], 7011822, 61734029, 8281441, 2068636 #### [facility] [address] [place] [address] Hematocrit (Bld) [Volume fraction] 34.6 % Low 37.7-49.0 [facility] Comment on above: Performed By: #### 1 [id number], 9378257, 02666294, 4105878, 6937057 #### [facility] [address] [place] [address] Hemoglobin (Bld) [Mass/Vol] 11.4 g/dL Low 13.5-17.5 [facility] Comment on above: Performed By: #### 1 [id number], 2629842, 74947763, 7719193, 0738251 #### [facility] [address] [place] [address] MCH (RBC) [Entitic mass] 26.9 pg Low 27.0-34.0 [facility] Comment on above: Performed By: #### 1 [id number], 8320545, 76819092, 7260290, 4774947 #### [facility] [address] [place] [address] MCHC (RBC) [Mass/Vol] 32.9 g/dL Normal 31.4-36.0 [facility] Comment on above: Performed By: #### 1 [id number], 4247554, 17543587, 9876845, 9017760 #### [facility] [address] [place] [address] MCV (RBC) [Entitic vol] 81.8 fL Normal 80.0-100.0 [facility] Comment on above: Performed By: #### 1 [id number], 8870259, 02265180, 6952118, 6505868 #### [facility] [address] [place] [address] Platelet mean volume (Bld) [Entitic vol] 9.4 fL Normal 6.4-10.8 [facility] Comment on above: Performed By: #### 1 [id number], 8210968, 28738701, 8470931, 4573889 #### [facility] [address] [place] [address] Platelets (Bld) [#/Vol] 237.0 E9/L Normal 150.0-500. 0 [facility] Comment on above: Performed By: #### 1 7154694, 4184421, 91181213, 4561578, 9312212 #### [facility] [address] [place] [address] RBC (Bld) [#/Vol] 4.2 E12/L Low 4.3-5.9 [facility] Comment on above: Performed By: #### 1 0931901, 5487993, 84559737, 5364088, 8830355 #### [facility] [address] [place] [address] WBC corrected for nucl RBC Auto (Bld) [#/Vol] 7.3 E9/L Normal 4.0-11.0 [facility] Comment on above: Performed By: #### 1 [id number], 6059003, 74085961, 8513825, 5317506 #### [facility] [address] [place] [address] CT Head or Brain w/o Contras ton [...] MD Transcribed by: MALINI Technologist: SHARIF Normal [facility] Capillary Glucose POCon 08-21 Glucose [Mass/Vol] 110 mg/dL High 55-99 [facility] Comment on above: Performed By: #### 2 [id number] ####[facility] [address] [place] [address] Consent To Leave AMAon 09-13 Consent To Leave AMA [id number]:127 Normal [facility] Consent for Treatmenton 08-21 Consent for Treatment [id number]#1.00CD:127 Normal [facility] [facility] Discharge Instructionson Discharge Instructions [id number]:127 Normal [facility] ED Clinical Summaryon 2020 ED Clinical Summary (Inserted Image. Daya ble to display) [place] [address] ED Clinical Summary Person Information Name: YOLI ANTUNEZ JR Yazmin/[facility] Age: 65 Years : 1955 Sex: Male Language: Papua [place]ine[place] PCP: RADHA BURRIS MD Marital Status: Visit [...] 09/13/2020 10:52:16 09/13/2020 10:52:16 09/13/2020 10:52:16 ADDRESS: [address] [place] [id number] [facility] DOC NOTES: MEDICAL INFORMATION: Prescriptions Given: [...] Follow up: With: Address: When: Tono Castaneda [address] [place] [address] [phone] Business (1) In 1 day 09/14/2020 With: Address: When: RADHA BURRIS [address] [place], [place] [phone] Business (1) In 3 days DIAGNOSIS: Angina pectoris; Cephalgia Normal [facility] ED Note-Nursingon 09-13-2020 ED Note-Nursing Thomas from pharmacy in and speaking with pt about his med list, pt informed he is TBA Normal [facility] ED Note-Nursing i spoke with pt more in depth about admission, he does not want to stay, he does not see any reason, 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 Normal [facility] ED Note-Nursing Dr. Low spoke wi th pt., pt does not want to be admitted, AMA paperwork filled out. Normal [facility] ED Note-Nursing dc instructions revi ewed, pt verbalized understanding. Normal [facility] ED Note-Physicianon 09-14-19 ED Note-Physician Basic [...] had multiple ablations and sees cardiology in [place]. He denies any history of CAD but [...] me he will follow up with his rn rehab in the outpatient setting. The patient wishes [...] and still (more content not included)... Normal [facility] Comment on above: Result Comment: Elec tronically Signed By: Bhavesh Low DO\.br\Date and Time Signed: 09/13/20 10:42 EDT ED Patient Education Noteon 09-13-2020 ED Patient Education Note Normal [facility] ED Patient Summaryon 021 ED Patient Summary (Inserted Image. Daya ble to display) [address] [address] Patient Discharge Instructions Person Information Name: YOLI ANTUNEZ JR Age: 65 Years Arrival Date: 09/13/2020 08:43:38 Discharge Diagnosis: Angina pectoris; Cephalgia Primary Care Physician: RADHA BURRIS MD Provider Information Primary Provider: Bhavesh Low DO Advanced Guitar Repairer:None The exam and treatment you received in the Emergency Department were for an urgent problem and are not intended as complete care. It is important that you follow up with a doctor, nurse practitioner, or physician?s funeral assistant for ongoing care. If your symptoms [...] Follow-up Instructions: With: Address: When: Tono Castaneda [address] [place] [phone] Business (1) In 1 day 09/14/2020 With: Address: When: RADHA BURRIS [facility] [place], [place] [phone] Business (1) In 3 days In the event that this physician does not participate in your insurance network, please consult with your insurance company to find a nearby participating provider. Patient Education Materials: A MESSAGE TO ALL PATIENTS REGARDING OPIOIDS PRESCRIPTION OPIOIDS: WHAT YOU NEED TO KNOW Prescription opioids can be used to help relieve ihzrnpim-rf-zcuxjw pain and are often prescribed following a [...] guidance from the Food and Drug Administration (www.fda.gov/Drugs/Resource sForYou). ? Visit www.cdc.gov/drugoverdose to learn about the risks of opioids abuse and overdose. ? If you believe you may be struggling with addiction, tell your health director of managed care (more content not included)... Normal [facility] Monitor Recordon 09-13-2020 Monitor Record [id number]#[id number]:127 Normal [facility] Monitor Record [id number]#[id number]:127 Normal [facility] Troponin 0 Hr.on 09-13-2020 Troponin I.cardiac [Mass/Vol] 2.70 pg/mL Low 15.90-38.4 0 [facility] Comment on above: Result Comment: The 95% CI (Confidence Interval) PPV (Positive Predictive Value) for myocardial infarction in females is 38 pg/mL, in males 51 pg/mL. The results should be used in conjunction with clinical conditions of myocardial infarction. (Access High Sensitivity Troponin I Instructions For Use, Bret Neavitt, November 2017) Performed By: #### 1 [id number], 9239851, 08437884, 7122996, 2796179 #### [facility] [address] [place] [address] XR Chest Single Viewon 09-13 XR Chest [...] Oren Ashby M.D. Transcribed by: MALINI Technologist: HE Normal [facility] eGFRon 09-13-2020 GFR/1.73 sq M.predicted among blacks MDRD (S/P/Bld) [Vol rate/Area] 57 mL/min/1.73 m2 Low >=59 [facility] Comment on above: Order Comment: Order added by Discern Expert. Result Comment: eGFR is race adjusted. AA=. Performed By: #### 1 [id number], 0168516, 46944190, 0032100, 2467245 #### [facility] [address] [place] [address] GFR/1.73 sq M.predicted among non-blacks MDRD (S/P/Bld) [Vol rate/Area] 47 mL/min/1.73 m2 Low >=59 [facility] Comment on above: Order Comment: Order added by Discern Expert. Result Comment: Digital Associate Media Director nikki kidney disease could be indicated at eGFR's of less than 60 mL/min/1.73m2. Kidney failure is indicated at less than 15 mL/min/1.73m2. Performed By: #### 1 9359322, 3914137, 00266839, 0251557, 8819827 #### [facility] [address] [place] [address] Coding Summary.on 01-25-2020 Coding Summary. CODING DATE: 020 FINAL [facility] STATUS: Home (Routine DC) PAYOR: Medicare APC [...] Revised Date Saved: 01/25/2020 02:44 pm Normal [facility] Discharge Instructionson Discharge Instructions [id number]:127 Normal [facility] Auto Diffon 01-19-2020 Basophils/100 WBC (Bld) 0.8 % Normal 0.0-2.0 [facility] Comment on above: Order Comment: Order Added by Discern Expert. Performed By: #### 2 476344, 12723306, 5583582, 64792818, 44895074, 4137810 ####[facility] [address] [place] [address] Basophils/Leukocytes Auto (Bld) [Pure # fraction] 0.1 E9/L Normal 0.0-0.2 [facility] Comment on above: Order Comment: Order Added by Discern Expert. Performed By: #### 2 371941, 37076772, 3307862, 40528527, 68675429, 0265962 ####[facility] [address] [place] [address] Eosinophils/100 WBC (Bld) 4.0 % Normal 0.0-8.0 [facility] Comment on above: Order Comment: Order Added by Discern Expert. Performed By: #### 2 289102, 21767457, 9529836, 25826923, 57066796, 5450335 ####[place] [address] [place] [address] Eosinophils/Leukocyt es Auto (Bld) [Pure # fraction] 0.3 E9/L Normal 0.0-0.5 [facility] Comment on above: Order Comment: Order Added by Discern Expert. Performed By: #### 2 774170, 88856536, 1502491, 26843861, 04822454, 7228252 ####[place] [address] [place] [address] Lymphocytes/100 WBC (Bld) 21.7 % Normal 14.0-50.0 [facility] Comment on above: Order Comment: Order Added by Discern Expert. Performed By: #### 2 561472, 38750144, 2240520, 05178410, 54557915, 3957225 ####[address] [address] Lymphocytes/Leukocyt es Auto (Bld) [Pure # fraction] 1.5 E9/L Normal 1.0-4.0 [facility] Comment on above: Order Comment: Order Added by Discern Expert. Performed By: #### 2 779738, 98656972, 5994883, 20405364, 43096511, 9541875 ####[place] [address] [place] [address] Monocytes/100 WBC (Bld) 7.2 % Normal 4.0-14.0 [facility] Comment on above: Order Comment: Order Added by Discern Expert. Performed By: #### 2 624599, 28341255, 9032611, 10489476, 63640308, 0059586 ####[place] [address] [place] [address] Monocytes/Leukocytes Auto (Bld) [Pure # fraction] 0.5 E9/L Normal 0.2-1.0 [facility] Comment on above: Order Comment: Order Added by Discern Expert. Performed By: #### 2 229940, 56051484, 8615315, 13472152, 76839487, 8297769 ####[facility] [address] [place] [address] Neutrophils/100 WBC (Bld) 66.3 % Normal 36.0-75.0 [facility] Comment on above: Order Comment: Order Added by Discern Expert. Performed By: #### 2 844285, 27655276, 7201456, 22901686, 68487639, 8749802 ####[facility] [address] [place] [address] Neutrophils/Leukocyt es Auto (Bld) [Pure # fraction] 4.7 E9/L Normal 2.0-7.5 [facility] Comment on above: Order Comment: Order Added by Discern Expert. Performed By: #### 2 601383, 96840963, 6239145, 13747474, 78161402, 9150038 ####[facility] [address] [place] [address] BMP 01-19-2020 Anion gap [Moles/Vol] 13 mmol/L Normal 6-16 [facility] Comment on above: Performed By: #### 2 971075, 02461766, 1257527, 46365356, 18140643, 7009442 ####[facility] [address] [place] [address] Calcium [Mass/Vol] 7.2 mg/dL Low 8.9-11.1 [facility] Comment on above: Performed By: #### 2 851134, 79823288, 1665104, 04008059, 98935640, 2647224 ####[facility] [address] [place] [address] Chloride [Moles/Vol] 107 mmol/L Normal 101-111 [facility] Comment on above: Performed By: #### 2 161509, 17976404, 0252760, 11676839, 30690090, 8759508 ####[facility] [address] [place] [address] CO2 [Moles/Vol] 23 mmol/L Normal 21-31 [facility] Comment on above: Performed By: #### 2 423725, 76123690, 5398608, 54490222, 12525614, 2938121 ####[facility] [address] [place] [address] Creatinine [Mass/Vol] 1.3 mg/dL Normal 0.5-1.3 [facility] Comment on above: Performed By: #### 2 244174, 77280599, 6379907, 62111773, 98816872, 5879074 ####[facility] [address] [place] [address] Glucose [Mass/Vol] 114 mg/dL Normal 55-199 [facility] Comment on above: Result Comment: If t his glucose result represents a fasting glucose, interpretation should refer to the following reference range: 55-99 mg/dL Performed By: #### 2 220818, 38339500, 9372671, 68309013, 24964296, 1108862 ####[facility] [address] [place] [address] Potassium [Moles/Vol] 3.3 mmol/L Low 3.5-5.3 [facility] Comment on above: Performed By: #### 2 015000, 51609977, 9898189, 54332391, 16705247, 2009440 ####[facility] [address] [place] [address] Sodium [Moles/Vol] 140 mmol/L Normal 135-145 [facility] Comment on above: Performed By: #### 2 390565, 48802625, 4070065, 10203685, 78153755, 7284430 ####[facility] [address] [place] [address] Urea nitrogen [Mass/Vol] 21 mg/dL Normal 5-21 [facility] Comment on above: Performed By: #### 2 327529, 64705870, 7242422, 67389371, 63226663, 7103506 ####[facility] [address] [place] [address] Urea nitrogen/Creatinine [Mass ratio] 16 No Units Normal 10-20 [facility] Comment on above: Performed By: #### 2 263727, 11935616, 0675188, 62823344, 42842309, 6343942 ####[facility] [address] [place] [address] CBC w/ Auto Diffon 0 Erythrocyte distribution width (RBC) [Ratio] 14.6 % High 10.9-14.2 [facility] Comment on above: Performed By: #### 2 284840, 34279929, 5397383, 09830014, 22677907, 2715586 #### [facility] [address] [place] [id number] Hematocrit (Bld) [Volume fraction] 38.2 % Normal 37.7-49.0 [facility] Comment on above: Performed By: #### 2 045674, 44754664, 3870019, 53093467, 98613366, 8421692 #### [facility] [address] [place] [address] Hemoglobin (Bld) [Mass/Vol] 12.7 g/dL Low 13.5-17.5 [facility] Comment on above: Performed By: #### 2 268648, 81704365, 8288793, 31692611, 17577935, 1172805 #### [facility] [address] [place] [address] MCH (RBC) [Entitic mass] 27.2 pg Normal 27.0-34.0 [facility] Comment on above: Performed By: #### 2 462049, 64250051, 1468550, 29045034, 48463203, 5856850 #### [facility] [address] [place] [address] MCHC (RBC) [Mass/Vol] 33.2 g/dL Normal 31.4-36.0 [facility] Comment on above: Performed By: #### 2 447447, 13961238, 9692727, 67233606, 67326345, 0734363 #### [facility] [address] [place] [address] MCV (RBC) [Entitic vol] 82.1 fL Normal 80.0-100.0 [facility] Comment on above: Performed By: #### 2 567707, 54475602, 8407262, 50110846, 09690599, 3862532 #### [facility] [address] [place] [address] Platelet mean volume (Bld) [Entitic vol] 8.2 fL Normal 6.4-10.8 [facility] Comment on above: Performed By: #### 2 558380, 16684705, 9341252, 46924370, 41194255, 2427444 #### [facility] [address] [place] [address] Platelets (Bld) [#/Vol] 226.0 E9/L Normal 150.0-500. 0 [facility] Comment on above: Performed By: #### 2 361412, 88408531, 1591495, 76595334, 56218289, 2707447 #### [facility] [address] [place] [address] RBC (Bld) [#/Vol] 4.7 E12/L Normal 4.3-5.9 [facility] Comment on above: Performed By: #### 2 262006, 86113351, 8801405, 23019545, 65295955, 8796916 #### [facility] [address] [place] [address] WBC corrected for nucl RBC Auto (Bld) [#/Vol] 7.1 E9/L Normal 4.0-11.0 [facility] Comment on above: Performed By: #### 2 745678, 38038667, 9248570, 82138942, 36087028, 4557777 #### [facility] [address] [place] [address] CTA Headon 01-19-2020 CTA Head Exam Date/Time: [...] 370 Contrast amount in ml's: 70 Normal [facility] CTA Neckon 01-19-2020 CTA Neck Exam [...] 370 Contrast amount in ml's: 70 Normal [facility] Capillary Glucose POCon 12-22 Glucose [Mass/Vol] 111 mg/dL High 55-99 [facility] Comment on above: Result Comment: Erika heart RN/ Performed By: #### 2 [id number] ####[facility] [address] [place] [address] Consent for Treatmenton 12-22 Consent for Treatment [id number]:127 Normal [facility] ED Clinical Summaryon 2019 ED Clinical Summary (Inserted Image. Daya ble to display) [place] [id number] ED Clinical Summary Person Information Name: YOLI ANTUNEZ JR Yazmin/[facility] Age: 64 Years : 1955 Sex: Male Language: [place] PCP: RADHA BURRIS MD Marital Status: Visit [...] 01/19/2020 17:29:31 01/19/2020 17:29:31 01/19/2020 17:29:31 ADDRESS: [address] [place] [id number] PHYS DOC NOTES: MEDICAL INFORMATION: Prescriptions Given: [...] Follow up: With: Address: When: Earle Jon [address] [place] [address] [employer] (1) In 3 days 01/22/2020 With: Address: When: Follow-up with your neurologist as directed at [facility] In 3 days 01/22/2020 DIAGNOSIS: Abnormal cardiac enzyme level; Aphasia; Chest pain Normal [facility] ED Note-Physicianon 01-19-20 ED Note-Physician Basic [...] [facility] for ablation for his atrial fibrillation. Patient [...] He was called by the neurologist at [facility] 1 hour prior to arrival and was [...] she cannot recall. He has been taking xtgq-aff-uvgcdyp medications for his headache as well and [...] me he just underwent full work-up at [facility] including negative MRI. He is not exactly sure why the neurologist sent the patient here today for CT angiogram but it is negative. He did request copies of the imaging and I did provide him with this on disc and we sent them electronically to [facility] as well. He is discharged [...] Basic Metabolic Panel CBC w/ Auto Diff [place] Stroke Scale Communication Order Physician to Nursing [...] Jon In 3 days 01/22/2020 EDT [address] [place] [address]- Business (1) Additional Instructions: (more content not included)... Normal [facility] Comment on above: Result Comment: Elec [...] Document Reviewed: 11/11/2008 ExitCare? Patient Information ?2015 [employer]. This information is not intended to replace [...] of t (more content not included)... Normal [facility] ED Patient Summaryon 020 ED Patient Summary (Inserted Image. Daya ble to display) [address] [address] Patient Discharge Instructions Person Information Name: YOLI ANTUNEZ JR Age: 64 Years Arrival Date: 01/19/2020 15:06:59 Discharge Diagnosis: Abnormal cardiac enzyme level; Aphasia; Chest pain Primary Care Physician: RADHA BURRIS MD Provider Information Primary Provider: Bhavesh Low DO Advanced Guitar Repairer:None The exam and treatment you received in the Emergency Department were for an urgent problem and are not intended as complete care. It is important that you follow up with a doctor, nurse practitioner, or physician?s funeral assistant for ongoing care. If your symptoms [...] Follow-up Instructions: With: Address: When: Earle Jon [address] [place] [phone] [facility] () In 3 days 01/22/2020 With: Address: When: Follow-up with your neurologist as directed at [facility] In 3 days 01/22/2020 In the event that this physician does not participate in your insurance network, please consult with your insurance company to find a nearby participating provider. Patient Education Materials: Chest Pain (Nonspecific); Aphasia A MESSAGE TO ALL PATIENTS REGARDING OPIOIDS PRESCRIPTION OPIOIDS: WHAT YOU NEED TO KNOW Prescription opioids can be used to help relieve svbfqndv-be-kkqavp pain and are often prescribed following a [...] guidance from the Food and Drug Administration (www.fda.gov/Drugs/Resource sForYou). ? Visit www.cdc.gov/drugoverdose to learn about the risks of opioids abuse and overdose. ? If you believe you may be struggling with addiction (more content not included)... Normal [facility] PT & PTTon 01-19-2020 aPTT Coag (PPP) [Time] 36.5 second(s) Normal 25.1-36.5 [facility] Comment on above: Result Comment: Hepa rin therapeutic range (represented by Anti-Factor Xa activity of 0.2 - 0.4 U/mL) corresponds to PTT of 56.6 - 109.0 sec. Performed By: #### 2 202786, 01711256, 9360522, 38700120, 05458415, 8920083 ####[facility] [address] [place] [address] INR Coag (PPP) [Relative time] 1.1 {INR} Invalid Interpretation Code [facility] Comment on above: Result Comment: INR results are specifically intended to assess patients stabilized on long-term Anticoagulation therapy suggested INR?s ?Less Intensive Anticoagulation? 2.0 ? 3.0 Conventional Range 3.0 ? 4.5 Performed By: #### 2 105053, 65359366, 2700751, 06736204, 32168731, 9704677 ####[facility] [address] [place] [address] PT Coag (PPP) [Time] 13.1 second(s) High 10.2-12.9 [facility] Comment on above: Performed By: #### 2 189333, 68868876, 7108039, 25690903, 72313852, 1450835 ####[facility] [address] [place] [address] Troponin 0 Hr.on 01-19-2020 Troponin I.cardiac [Mass/Vol] 126.30 pg/mL Abnormal 15.90-38.4 0 [facility] Comment on above: Result Comment: Crit [...] Leonardo, November 2017) Performed By: #### 2 696336, 25507870, 6804855, 71370230, 58453671, 3972940 ####[facility] [address] [place] [address] XR Chest Single Viewon 01-18 XR Chest [...] M.D. Transcribed by: MALINI Technologist: LMS Normal [facility] eGFRon 01-19-2020 GFR/1.73 sq M.predicted among blacks MDRD (S/P/Bld) [Vol rate/Area] mL/min/{1.73_m2} Normal >=59 [facility] Comment on above: Order Comment: Order added by Discern Expert. Result Comment: eGFR is race adjusted. AA=. Performed By: #### 2 662150, 65121876, 1730109, 74986662, 75797838, 9484232 ####[facility] [address] [place] [address] GFR/1.73 sq M.predicted among non-blacks MDRD (S/P/Bld) [Vol rate/Area] 55 mL/min/1.73 m2 Low >=59 [facility] Comment on above: Order Comment: Order added by Discern Expert. Result Comment: Digital Associate Media Director nikki kidney disease could be indicated at eGFR's of less than 60 mL/min/1.73m2. Kidney failure is indicated at less than 15 mL/min/1.73m2. Performed By: #### 2 003788, 64601878, 6552353, 86435411, 94175141, 3973603 ####[facility] [address] [place] [address] Creatinineon 04-28-2018 Creatinine mass conc 1.47 mg/dL High 0.50-1.30 [facility] Comment on above: Performed By: #### 1 700679 ####[facility] [address] [place] [address] GFR/1.73 sq M.predicted MDRD vol rate/area 48 mL/min/{1.73_m2} Normal [facility] Comment on above: Result Comment: Inte rpretation for Chronic Kidney Disease:Stages 1&2 >60 Healthy or potential kidney damage.Mild decrease of GFR.Stage 3 30-59 Moderate decrease of GFR.Stage 4 15-29 Severe decrease of GFR.Stage 5 <15 Kidney failure or on dialysis. Performed By: #### 1 029577 ####[facility] [address] [place] [address] Electrolyte Panelon 04-28-19 19 Anion gap 3 molar conc 10 mmol/L Normal 10-20 [facility] Comment on above: Performed By: #### 1 533227 ####[facility] [address] [place] [address] Chloride molar conc 110 mmol/L High 98-107 [facility] Comment on above: Performed By: #### 1 442549 ####[facility] [address] [place] [address] HCO3 molar conc (Bld) 25 mmol/L Normal 21-32 [facility] Comment on above: Performed By: #### 1 552152 ####[facility] [address] [place] [address] Potassium molar conc 4.2 mmol/L Normal 3.5-5.1 [facility] Comment on above: Performed By: #### 1 858164 ####[facility] [address] [place] [address] Sodium molar conc 141 mmol/L Normal 136-145 [facility] Comment on above: Performed By: #### 1 457624 ####[facility] [address] [place] [address] Urea Nitrogenon 04-28-2018 Urea nitrogen mass conc 32 mg/dL High 6-23 [facility] Comment on above: Performed By: #### 1 200774 ####[facility] [address] [place] [address] Social History Date Type Detail Facility Start: 10-02-2022 Tobacco Comment Last smoked:>2 0 years ago [facility] Start: 10-02-2022 Alcohol Comment one beer a sat. Caffeine intake: 2-3 cups per day of coffee [facility] Start: 07-04-2022 Gender identity Identifies as male gender (finding) [facility] Start: 01-01-2022 Tobacco smoking stat [facility] Never smoked tobacco [employer]: Start: 01-06-2020 End: 01-01-2022 Tobacco use and exposure Smokeless tobacco non-user [employer]: Start: 12-21-2021 End: 01-31-2023 Exposure to SARS-CoV-2 (event) Not sure [employer]: Start: 01-06-2020 End: 06-29-2021 Sex Assigned At [facility] Start: 05-04-2021 Alcohol Comment 1 beer once a month [facility] Start: 01-27-2020 End: 05-10-2023 Alcohol intake Current drinker of alcohol (finding) [facility] Start: 01-06-2020 End: 01-27-2020 Alcohol intake [facility] Start: 01-06-2020 End: 04-16-2023 Tobacco smoking status NHIS Ex-smoker [facility] Start: 01-06-2020 History SDOH Alcohol Frequency 2 [facility] Start: 04-22-1967 End: 01-06-1984 History of tobacco use Current smoker [facility] Start: 04-22-1967 End: 01-06-1984 History of tobacco use Cigarette Smoker [facility] Start: 1955 Sex Assigned At Not on file [facility] [place] Start: 1955 Sex Assigned At Male [facility] Assertion Unknown if ever smoked [facility] Work Phone: Adult Depression Screening Assessment 1 [facility] Tobacco smoking stat [facility] Tobacco smoking consumption unknown [facility] Work Phone: Within the last year , have you [...] Not at all [facility] (I/We) worried shamika er (my/our) food would run out before (I/we) got money to buy more. Never true [facility] Vital Signs Date Time Vital Sign Value Performing Clinician Facility 04-16-2023 11:58-0500 Diastolic blood pressure 77 mm[Hg] MD Radha Burris Work Phone: [facility] 04-16-2023 11:58-0500 Heart rate 60 /min MD Radha Burris Work Phone: [facility] 04-16-2023 11:58-0500 Respiratory rate 16 /min MD Radha Burris Work Phone: [facility] 04-16-2023 11:58-0500 SaO2% (BldA) [Mass fraction] 100 % MD Radha Burris Work Phone: [facility] 04-16-2023 11:58-0500 Systolic blood pressure 122 mm[Hg] MD Radha Burris Work Phone: [facility] 04-16-2023 09:35-0500 Body height 198.12 cm MD Radha Burris Work Phone: [facility] 04-16-2023 09:35-0500 Body weight 111.13 kg MD Radha Burris Work Phone: [facility] 03-20-2023 14:00-0500 Body height Imad Asaad Other [facility] Other 03-20-2023 14:00-0500 Body height 195.58 cm MD Radha Burris Work Phone: [facility] 03-20-2023 14:00-0500 Body mass index (BMI) [Ratio] 30.34 kg/m2 Imad Asaad Other [facility] [employer] Other 03-20-2023 14:00-0500 Body weight 116.08 kg Imad Asaad Other [facility] Other 03-20-2023 14:00-0500 Body weight 116.07 kg MD Radha Burris Work Phone: [facility] 03-20-2023 14:00-0500 Diastolic blood pressure 70 mm[Hg] Imad Asaad Other [facility] 03-20-2023 14:00-0500 Systolic blood pressure 120 mm[Hg] Imad Estella Other [facility] 01-31-2023 14:51-0400 Body mass index (BMI) [Ratio] 28.89 kg/m2 Yossi Chen MD Work Phone: [facility] 01-31-2023 14:51-0400 Body weight 113.4 kg Yossi Chen MD Work Phone: [facility] 12-31-2022 15:12-0400 Body height 198.1 cm Sarbjit Dobrowski [employer]UMAN [employer]ILE.[employer] POWERPLANT MECHANIC Work Phone: [facility] 12-31-2022 15:12-0400 Body weight 114.76 kg Sarbjit Dobrowski HUMAN PROJECTILE.AIRFRAME AND POWERPLANT MECHANIC Work Phone: [facility] 12-31-2022 15:12-0400 Diastolic blood pressure 77 mm[Hg] Sabrjit Dobrowski HUMAN PROJECTILE.AIRFRAME AND POWERPLANT MECHANIC Work Phone: [facility] 12-31-2022 15:12-0400 Heart rate 69 /min Sarbjit Dobrowski HUMAN PROJECTILE.AIRFRAME AND POWERPLANT MECHANIC Work Phone: [facility] 12-31-2022 15:12-0400 Systolic blood pressure 123 mm[Hg] Sarbjit Dobrowski HUMAN PROJECTILE.AIRFRAME AND POWERPLANT MECHANIC Work Phone: [facility] 11-29-2022 13:43-0400 Body height 198.12 cm Radha Burris Work Phone: [facility] DO Work Phone: 11-29-2022 13:43-0400 Body mass index (BMI) [Ratio] 29.24 kg/m2 Radha Burris Work Phone: [facility] DO Work Phone: 11-29-2022 13:43-0400 Body surface area Derived from formula 2.49 m2 Radha Burris Work Phone: [facility] DO Work Phone: 11-29-2022 13:43-0400 Body weight 114.76 kg Radha Andrew Burris Work Phone: [facility] DO Work Phone: 11-12-2022 14:23-0400 Body height 198.12 cm Radha Burris Work Phone: [facility] DO Work Phone: 11-12-2022 14:23-0400 Body mass index (BMI) [Ratio] 29.82 kg/m2 Radha Burris Work Phone: [facility] DO Work Phone: 11-12-2022 14:23-0400 Body surface area Derived from formula 2.52 m2 Radha Burris Work Phone: [facility] DO Work Phone: 11-12-2022 14:23-0400 Body weight 117.03 kg Radha Burris Work Phone: [facility] DO Work Phone: 11-12-2022 14:23-0400 Diastolic blood pressure 65 mm[Hg] Radha Burris Work Phone: [facility] DO Work Phone: 11-12-2022 14:23-0400 Heart rate 77 /min Radha Burris Work Phone: [facility] DO Work Phone: 11-12-2022 14:23-0400 Systolic blood pressure 104 mm[Hg] Radha Burris Work Phone: [facility] DO Work Phone: 10-18-2022 14:32-0400 Diastolic blood pressure 61 mm[Hg] Infusion 3 Work Phone: [facility] 10-18-2022 14:32-0400 Heart rate 68 /min Infusion 3 Work Phone: [facility] 10-18-2022 14:32-0400 Respiratory rate 14 /min Infusion 3 Work Phone: [facility] 10-18-2022 14:32-0400 Systolic blood pressure 111 mm[Hg] Infusion 3 Work Phone: [facility] 08-30-2022 07:01-0400 Body height 184.4 cm Beth Diego MD Work Phone: [facility] 08-30-2022 07:01-0400 Body mass index (BMI) [Ratio] 33.41 kg/m2 Beth Diego MD Work Phone: [facility] 08-30-2022 07:01-0400 Body weight 113.6 kg Beth Diego MD Work Phone: [facility] 08-17-2022 10:33-0400 Body height 198.12 cm Radha Burris Work Phone: VL-Wepvjxjtsodtwx-Pu rma [facility] [address] Work Phone: 08-17-2022 10:33-0400 Body mass index (BMI) [Ratio] 29.99 kg/m2 Radha Burris Work Phone: QI-Dfnkmrgnhyntgx-Pi rma [facility] [address] Work Phone: 08-17-2022 10:33-0400 Body surface area Derived from formula 2.52 m2 Radha Burris Work Phone: VC-Kuzxvgsoaifzvl-Kx rma [facility] [address] Work Phone: 08-17-2022 10:33-0400 Body temperature 97.8 [degF] Radha Burris Work Phone: VF-Oqbnywuhmwkegf-Hm rma [facility] [address] Work Phone: 08-17-2022 10:33-0400 Body weight 117.71 kg Radha Burris Work Phone: IZ-Nlfaesqbwdncpc-Ev rma [facility] [address] Work Phone: 08-17-2022 10:33-0400 Diastolic blood pressure 74 mm[Hg] Radha Burris Work Phone: QE-Rxmrhwfpectsts-Um rma [facility] [address] Work Phone: 08-17-2022 10:33-0400 Heart rate 82 /min Radha Burris Work Phone: ZH-Ciindlzyrnwcua-Nx rma [facility] [address] Work Phone: 08-17-2022 10:33-0400 Respiratory rate 16 /min Radha Burris Work Phone: KV-Mptdpyukayeloq-Hz rma [facility] 302 Work Phone: 08-17-2022 10:33-0400 SaO2% (BldA) [Mass fraction] 98 % Radha Burris Work Phone: PY-Kxervfukoiikde-Et rma [facility] [address] Work Phone: 08-17-2022 10:33-0400 Systolic blood pressure 111 mm[Hg] Radha Burris Work Phone: FK-Ehptnmhyhagrgz-Rm rma [facility] [address] Work Phone: 07-26-2022 14:25-0400 Diastolic blood pressure 77 mm[Hg] Infusion 3 Work Phone: [facility] 07-26-2022 14:25-0400 Heart rate 88 /min Infusion 3 Work Phone: [facility] 07-26-2022 14:25-0400 Systolic blood pressure 120 mm[Hg] Infusion 3 Work Phone: [facility] 07-17-2022 08:57-0400 Body height 198.12 cm Radha Burris Work Phone: [facility] Work Phone: 07-17-2022 08:57-0400 Body mass index (BMI) [Ratio] 29.08 kg/m2 Radha Burris Work Phone: [facility] 4[address] Work Phone: 07-17-2022 08:57-0400 Body surface area Derived from formula 2.49 m2 Radha Burris Work Phone: [facility] Work Phone: 07-17-2022 08:57-0400 Body temperature 98.8 [degF] Radha Burris Work Phone: [facility] [address] Work Phone: 07-17-2022 08:57-0400 Body weight 114.13 kg Radha Burris Work Phone: [facility] [address] Work Phone: 01-05-2022 14:08-0400 Respiratory rate 16 /min John Saul MD Work Phone: [facility] 01-05-2022 09:00-0400 Diastolic blood pressure 80 mm[Hg] John Saul MD Work Phone: [facility] 01-05-2022 09:00-0400 Heart rate 63 /min John Saul MD Work Phone: [facility] [employer] 01-05-2022 09:00-0400 Systolic blood pressure 143 mm[Hg] John Saul MD Work Phone: [facility] [employer] 01-05-2022 07:45-0400 Body temperature 97.9 [degF] John Saul MD Work Phone: [facility] [employer] 01-05-2022 07:45-0400 SaO2% (BldA) [Mass fraction] 98 % John Saul MD Work Phone: [facility] [employer] 01-03-2022 06:00-0400 Body mass index (BMI) [Ratio] 29.47 kg/m2 John Saul MD Work Phone: [facility] 01-03-2022 06:00-0400 Body weight 115.67 kg John Saul MD Work Phone: [facility] [employer] 12-31-2021 23:43-0400 Body height 198.1 cm John Saul MD Work Phone: [facility] [employer] 10-02-2021 16:00-0400 Body height Thor Fox Other [employer] Other 10-02-2021 16:00-0400 Body mass index (BMI) [Ratio] 30.71 kg/m2 Thor Fox Other [employer] Other 10-02-2021 16:00-0400 Body weight 117.48 kg Thor Fox Other [employer] Other 10-02-2021 16:00-0400 Diastolic blood pressure 72 mm[Hg] Thor Fox Other [employer] Other 10-02-2021 16:00-0400 SaO2% (BldA) [Mass fraction] 97 % Thor Fox Other [employer] Other 10-02-2021 16:00-0400 Systolic blood pressure 118 mm[Hg] Thor Fox Other [employer] Other 08-30-2021 10:15-0400 Body height Lashawn Estrada Other [employer] Other 08-30-2021 10:15-0400 Body mass index (BMI) [Ratio] 30.76 kg/m2 Lashawn Estrada Other [employer] Other 08-30-2021 10:15-0400 Body weight 117.66 kg Lashawn Estrada Other [employer] Other 08-30-2021 10:15-0400 Diastolic blood pressure 64 mm[Hg] Lashawn Estrada Other [employer] Other 08-30-2021 10:15-0400 Respiratory rate 18 /min Lashawn Estrada Other [employer] Other 08-30-2021 10:15-0400 SaO2% (BldA) [Mass fraction] 96 % Lashawn Estrada Other [employer] Other 08-30-2021 10:15-0400 Systolic blood pressure 116 mm[Hg] Lashawn Estrada Other [employer] Other 08-03-2021 16:45-0400 Body height Thor Fox Other [employer] Other 08-03-2021 16:45-0400 Body mass index (BMI) [Ratio] 30.73 kg/m2 Thor Fox Other [employer] Other 08-03-2021 16:45-0400 Body weight 117.57 kg Thor Fox Other [employer] Other 08-03-2021 16:45-0400 Diastolic blood pressure 80 mm[Hg] Thor Fox Other [employer] Other 08-03-2021 16:45-0400 SaO2% (BldA) [Mass fraction] 98 % Thor Fox Other [employer] Other 08-03-2021 16:45-0400 Systolic blood pressure 122 mm[Hg] Thor Fox Other [employer] Other 03-11-2020 13:30-0500 Body Temperature 98.1 [degF] [address] [place] 03-11-2020 13:30-0500 BP Diastolic 75 mm[Hg] [address] 03-11-2020 13:30-0500 BP Systolic 126 mm[Hg] [address] 03-11-2020 13:30-0500 Pulse (Heart Rate) 69 /min [address] 03-11-2020 13:30-0500 Respiratory Rate 18 /min [facility] [place] 03-11-2020 09:45-0500 Pulse Oximetry 99 % [address] [place], [place] 03-03-2019 13:16-0500 BMI (Body Mass Index) 28 kg/m2 Chris Crain [facility] [address] Work Phone: 03-03-2019 13:16-0500 Body weight 109.88 kg Chris [facility] Work Phone: 03-03-2019 13:16-0500 BP Diastolic 80 mm[Hg] Chris Luong [facility] Work Phone: Comment on above: Location: LUE; Position: Sitting 03-03-2019 13:16-0500 BP Systolic 118 mm[Hg] Chris Luong [facility] Work Phone: Comment on above: Location: LUE; Position: Sitting 03-03-2019 13:16-0500 BSA (Body Surface Area) 2.45 m2 Chris Luong MPWN-Ubxjaygqb-Histpgq ld 201 Work Phone: 03-03-2019 13:16-0500 Height 198.12 cm Chris Luong [facility] Work Phone: 03-03-2019 13:16-0500 Pulse (Heart Rate) 81 /min hCris Luong [facility] Work Phone: 03-03-2019 13:16-0500 Pulse Oximetry 96 % Chris Luong [facility] Work Phone: Comment on above: Source: RA Functional Status Date Assessment Result Facility NEGATED: Highlighted row Functional performance Functional status health issues are not documented Disease [facility] Work Phone: Mental Status Date Assessment Result Facility NEGATED: Highlighted row Cognitive function [Interpretation] Cognitive status health issues are not documented Disease ZV-Qfqrjdgop-Ogbier eld 201 Work Phone: Clinical Notes 2018 to 08-30-2023 María Pearl APRN.[employer]IRFRAME AND POWERPLANT MECHANIC - 05/31/2023 10:45 AM EST Note Date & Type Note Facility 08-30-2023 Note Cardiovascular Labor atory Report FINAL IMPRESSIONS: Moderate to severe disease of a small second diagonal branch of the left anterior descending coronary artery Mild disease of the left anterior descending coronary artery Subtotally occluded mid to distal, small posterolateral branch of the right coronary artery Normal global left ventricular systolic function by noninvasive imaging RECOMMENDATIONS: Consider alternate etiologies for the patient's symptomatology namely pulmonary, gastrointestinal and/or musculoskeletal Aggressive cardiovascular risk factor modification Optimal medical therapy for coronary artery disease should include aspirin, high intensity statin therapy, a beta-gonzález +/- an angiotensin-converting enzyme inhibitor Follow-up with Dr. Shukri Vilchis, Electrophysiology as scheduled Follow-up with the [facility] in [place] as scheduled PROCEDURES: Ultrasound-guided access to the left radial artery, bilateral selective coronary angiography via a left radial approach METHODS: After risks, benefits, and alternatives were explained, written informed consent was obtained. The patient was prepped and draped in usual sterile fashion over the left wrist. Local infiltration anesthesia was achieved of the left wrist. Using a micropuncture kit, access to the left radial artery was obtained. A 6 Armenian glide sheath was inserted without difficulty. Bilateral selective coronary angiography was performed using JR 4.0 and JL 4.0 catheters. After reviewing the images, it was elected to conclude the procedure. The catheters were removed. The radial sheath was removed with application of a TR band per protocol to achieve optimal hemostasis. FINDINGS: Hemodynamics: AO 128/75 [110] LEFT VENTRICULOGRAPHY: This was not performed. Ejection fraction normal by echocardiography. CORONARY ARTERIES: Left main coronary artery: This arises from the left coronary cusp, it bifurcates into the left anterior descending and the left circumflex coronary arteries. It shows mild plaque. Left anterior descending coronary artery: This shows heavily calcific plaque in the midportion with a 30% stenosis. Gives rise to a small first diagonal and a small second diagonal. The second diagonal shows a proximal 60 to 70% stenosis and is unchanged from prior records. It is a wraparound left anterior descending. Left circumflex coronary artery: This is a voluminous codominant vessel supplying posterolateral branches. It gives rise to a high originating first obtuse marginal that has ostial plaque. There is a small second obtuse marginal followed by a large branching third obtuse marginal. The vessel continues as a small caliber AV groove branch. Right coronary artery: This arises from the right coronary cusp, it appears to be a codominant vessel giving rise to the posterior descending artery which is a small caliber subtotally occluded vessel in the mid to distal portion. INDICATIONS: Chest pain, presyncope [facility] 08-23-2023 Note Pt stated he has bee n told that he becomes nasty if he does not received enough sedation, states he needed general for his Watchman procedure. He also states he becomes aphasic w/ too much sedation. [facility] 08-22-2023 Note SYNCOPE AND AUTONOMI C DISORDERS CLINIC Reason for Consultation: Chest pain HPI: Yoli Antunez Jr. is a 68 y.o. year old with past medical history of Coronary artery disease, chest pain and sick sinus syndrome. He recently underwent permanent dual-chamber pacemaker implantation due to symptomatic bradycardia. The pacemaker was set at a rate of 65 pulses per minute. Prior to implantation of the device he underwent a stress test which was read as being normal. However since implantation of the pacing device he has had multiple episodes of angina pectoris. Previously these occurred at a level of maybe 2/week. Since pacemaker implantation with a higher rate he is now having approximately 3/day. These are relieved with nitro however they drop his pressure considerably to the level he becomes near syncopal. I reprogrammed the device while he was in clinic down to 60 pulses per minute and at the same time did a EKG. I changed the AV delay such that the QRS should not be disturbed and it showed higher degree of ST segment flattening compared to his previous studies. Despite the fact that he had a normal stress test these episodes sound like true angina pectoris and I think he should undergo cardiac catheterization to determine whether or not he had would have a correctable coronary lesion. PMH: Past Medical History: Diagnosis Date Arrhythmia Atrial fibrillation (CMS/HCC) Chronic kidney disease stage 3 b Coronary artery disease Disease of thyroid gland Hypertension Pancreatitis, gallstone TIA (transient ischemic attack) PSH: Past Surgical History: Procedure Laterality Date APPENDECTOMY ATRIAL ABLATION SURGERY flutter and fib ablation BACK SURGERY CARDIAC CATHETERIZATION CHOLECYSTECTOMY CTA CHEST W IV CONTRAST 07/22/2020 CT CHEST ANGIOGRAM W AND/OR WO IV CONTRAST AHMADI CONVERSION CTA CHEST W IV CONTRAST 08/30/2020 CT CHEST ANGIOGRAM W AND/OR WO IV CONTRAST AHMADI CONVERSION MR HEAD ANGIO WO IV CONTRAST 07/09/2022 MR HEAD ANGIO WO IV CONTRAST 07/09/2022 [facility] MR IMAGING MR NECK ANGIO WO IV CONTRAST 07/09/2022 MR NECK ANGIO WO IV CONTRAST 07/09/2022 [facility] MR IMAGING NECK SURGERY THYROIDECTOMY SH: Social Determinants of Health Tobacco Use: Medium Risk (07/18/2023) Patient History Smoking Tobacco Use: Former Smokeless Tobacco Use: Former Passive Exposure: Not on file Alcohol Use: Not on file Financial Resource Strain: Not on file Food Insecurity: Not on file Transportation Needs: Not on file Physical Activity: Not on file Stress: Not on file Social Connections: Not on file Intimate Partner Violence: Not At Risk (06/17/2023) Humiliation, Afraid, Rape, and Kick questionnaire Fear of Current or Ex-Partner: No Emotionally Abused: No Physically Abused: No Sexually Abused: No Depression: Not at risk (06/17/2023) PHQ-2 PHQ-2 Score: 0 Housing Stability: Not on file Utilities: Not on file Meds: Current Outpatient Medications on File Prior to Visit Medication Sig Dispense Refill aspirin 81 mg chewable tablet Chew 1 tablet (81 mg) in the morning. Do not start before March 08, 2022. 30 tablet 3 calcitriol (Rocaltrol) 0.25 mcg capsule 1 (one) time each day at the same time. cyanocobalamin (Vitamin B-12) 1,000 mcg tablet Take 1.25 mcg by mouth every 7 (seven) days. doxycycline (Vibra-Tabs) 100 mg tablet Take 1 tablet (100 mg) by mouth in the morning and at bedtime for 10 days. Take with a full glass of water and do not lie down for at least 30 minutes after. 20 tablet 0 levothyroxine (Synthroid, Levoxyl) 150 mcg tablet Take 150 mcg by mouth before breakfast. metoprolol tartrate (Lopressor) 25 mg tablet Take 1 tablet (25 mg) by mouth in the morning and at bedtime. 180 tablet 3 nitroglycerin (Nitrostat) 0.[address] 0.4 mg under the tongue if needed each day. No current facility-administered medications on file prior to visit. ROS: Cardio Basic Cardiovascular Symptoms: Chest pain, lightheadedness, no leg edema, no syncope, no orthopnea, no PND, no claudication, Constitutional Constitutional: no fever, no night sweats, no significant weight gain, no significant weight loss, exercise intolerance Eyes Eyes: no dry eyes, no irritation, no vision change ENMT Ears: no difficulty hearing, no ear pain Nose: no frequent nosebleeds, Mouth/Throat: no sore throat, no bleeding gums, no snoring, no dry mouth, no mouth ulcers, no oral abnormalities, no teeth problems Respiratory Respiratory: no cough, no wheezing, no coughing up blood, no sleep apnea Musculoskeletal Musculoskeletal: no muscle aches, no muscle weakness, joint pain+, no back pain, no swelling in the extremities Integumentary Skin no rash, no ulcer, no varicosities, no discoloration, no pruritus Neurologic Neurologic: no loss of consciousness, no weakness, no numbness, no seizures, no dizziness, no headaches Psychiatric Psych: no depression, feeli (more content not included)... [facility] 08-22-2023 Note SYNCOPE AND AUTONOMI C DISORDERS CLINIC Reason for Consultation: Chest pain HPI: Yoli Antunez Jr. is a 68 y.o. year old with past medical history of Coronary artery disease, chest pain and sick sinus syndrome. He recently underwent permanent dual-chamber pacemaker implantation due to symptomatic bradycardia. The pacemaker was set at a rate of 65 pulses per minute. Prior to implantation of the device he underwent a stress test which was read as being normal. However since implantation of the pacing device he has had multiple episodes of angina pectoris. Previously these occurred at a level of maybe 2/week. Since pacemaker implantation with a higher rate he is now having approximately 3/day. These are relieved with nitro however they drop his pressure considerably to the level he becomes near syncopal. I reprogrammed the device while he was in clinic down to 60 pulses per minute and at the same time did a EKG. I changed the AV delay such that the QRS should not be disturbed and it showed higher degree of ST segment flattening compared to his previous studies. Despite the fact that he had a normal stress test these episodes sound like true angina pectoris and I think he should undergo cardiac catheterization to determine whether or not he had would have a correctable coronary lesion. PMH: Past Medical History: Diagnosis Date Arrhythmia Atrial fibrillation (CMS/HCC) Chronic kidney disease stage 3 b Coronary artery disease Disease of thyroid gland Hypertension Pancreatitis, gallstone TIA (transient ischemic attack) PSH: Past Surgical History: Procedure Laterality Date APPENDECTOMY ATRIAL ABLATION SURGERY flutter and fib ablation BACK SURGERY CARDIAC CATHETERIZATION CHOLECYSTECTOMY CTA CHEST W IV CONTRAST 07/22/2020 CT CHEST ANGIOGRAM W AND/OR WO IV CONTRAST AHMADI CONVERSION CTA CHEST W IV CONTRAST 08/30/2020 CT CHEST ANGIOGRAM W AND/OR WO IV CONTRAST AHMADI CONVERSION MR HEAD ANGIO WO IV CONTRAST 07/09/2022 MR HEAD ANGIO WO IV CONTRAST 07/09/2022 [facility] MR IMAGING MR NECK ANGIO WO IV CONTRAST 07/09/2022 MR NECK ANGIO WO IV CONTRAST 07/09/2022 [facility] MR IMAGING NECK SURGERY THYROIDECTOMY SH: Social Determinants of Health Tobacco Use: Medium Risk (07/18/2023) Patient History Smoking Tobacco Use: Former Smokeless Tobacco Use: Former Passive Exposure: Not on file Alcohol Use: Not on file Financial Resource Strain: Not on file Food Insecurity: Not on file Transportation Needs: Not on file Physical Activity: Not on file Stress: Not on file Social Connections: Not on file Intimate Partner Violence: Not At Risk (06/17/2023) Humiliation, Afraid, Rape, and Kick questionnaire Fear of Current or Ex-Partner: No Emotionally Abused: No Physically Abused: No Sexually Abused: No Depression: Not at risk (06/17/2023) PHQ-2 PHQ-2 Score: 0 Housing Stability: Not on file Utilities: Not on file Meds: Current Outpatient Medications on File Prior to Visit Medication Sig Dispense Refill aspirin 81 mg chewable tablet Chew 1 tablet (81 mg) in the morning. Do not start before March 08, 2022. 30 tablet 3 calcitriol (Rocaltrol) 0.25 mcg capsule 1 (one) time each day at the same time. cyanocobalamin (Vitamin B-12) 1,000 mcg tablet Take 1.25 mcg by mouth every 7 (seven) days. doxycycline (Vibra-Tabs) 100 mg tablet Take 1 tablet (100 mg) by mouth in the morning and at bedtime for 10 days. Take with a full glass of water and do not lie down for at least 30 minutes after. 20 tablet 0 levothyroxine (Synthroid, Levoxyl) 150 mcg tablet Take 150 mcg by mouth before breakfast. metoprolol tartrate (Lopressor) 25 mg tablet Take 1 tablet (25 mg) by mouth in the morning and at bedtime. 180 tablet 3 nitroglycerin (Nitrostat) 0.[address] 0.4 mg under the tongue if needed each day. No current facility-administered medications on file prior to visit. ROS: Cardio Basic Cardiovascular Symptoms: Chest pain, lightheadedness, no leg edema, no syncope, no orthopnea, no PND, no claudication, Constitutional Constitutional: no fever, no night sweats, no significant weight gain, no significant weight loss, exercise intolerance Eyes Eyes: no dry eyes, no irritation, no vision change ENMT Ears: no difficulty hearing, no ear pain Nose: no frequent nosebleeds, Mouth/Throat: no sore throat, no bleeding gums, no snoring, no dry mouth, no mouth ulcers, no oral abnormalities, no teeth problems Respiratory Respiratory: no cough, no wheezing, no coughing up blood, no sleep apnea Musculoskeletal Musculoskeletal: no muscle aches, no muscle weakness, joint pain+, no back pain, no swelling in the extremities Integumentary Skin no rash, no ulcer, no varicosities, no discoloration, no pruritus Neurologic Neurologic: no loss of consciousness, no weakness, no numbness, no seizures, no dizziness, no headaches Psychiatric Psych: no depression, feeli (more content not included)... [facility] 08-14-2023 Note Patient here today w ith concerns about his wound s/p PPM insertion on 07/09/[address] Vilchis. He said over the weekend it puffed up and had a blister on it. He said there was no pus, but there was a small amount of clear liquid and blood. Review of Systems Cardiovascular: Positive for chest pain, dyspnea on exertion, irregular heartbeat, leg swelling (resolves by morning, minimal), near-syncope, palpitations and syncope. Musculoskeletal: Positive for arthritis, back pain, joint pain and myalgias. Neurological: Positive for dizziness, headaches, light-headedness and sensory change. All other systems reviewed and are negative. [facility] 07-18-2023 Note Patient here for wou nd check s/p PPM insertion on 07/[address] Vilchis. [facility] 07-18-2023 Note Cardiovascular Medic ine [facility] SUBJECTIVE Chief Complaint Patient presents with Palpitations Atrial Fibrillation Syncope s/p pacemaker Wound Care Yoli Antunez is a 68 y.o. male here for follow-up after his recent PPM implant. His accompanied him today. HPI PMHx: CAD s/p PCI, a.fib/flutter s/p ablation 07/18/2023 He underwent PPM implant on 07/09/2023. He denies any fevers/chills, abnormal drainage. 2 days ago he had an episode of palpitations/irregular heart beat then dizziness and chest pain then he thinks he passed out for a few seconds. He was sitting when this happened. Reached out to monitoring company and no events have been seen thus far. Denies dyspnea, orthopnea. Patient Active Problem List Diagnosis Paroxysmal atrial fibrillation (CMS/HCC) Essential hypertension Coronary artery disease involving [place] coronary artery of [place] heart without angina pectoris Recurrent falls History [...] Bilateral partial vocal cord paralysis Muscle strain Acute blood loss anemia Paraesophageal hernia Sick sinus syndrome (CMS/HCC) Pacemaker Syncope and collapse Aneurysm of ascending aorta without rupture (CMS/HCC) Past Medical History: Diagnosis Date Arrhythmia Atrial [...] date: 1967 Quit date: 1983 Years since quittin.1 Smokeless tobacco: Former Types: Chew Quit date: [...] exertion, irregular heartbeat, leg swelling (resolves by morning, minimal), near-syncope, palpitations and syncope. Musculoskeletal: Positive for arthritis, back pain, joint pain and myalgias. Neurological: Positive for dizziness, headaches, light-headedness and sensory change. All other systems reviewed and are negative. OBJECTIVE Visit Vitals BP 116/81 (Patient Position: Sitting) Pulse 70 Smoking Status Former Medications: Current Outpatient Medications: aspirin 81 mg chewable tablet, Chew 1 tablet (81 mg) in the morning. Do not start before No (more content not included)... [facility] 07-11-2023 Note Cardiovascular Medic ine [facility] SUBJECTIVE No chief complaint on file. Yoli Richelle Antunez Jr. is a 68 y.o. male here for follow-up after his recent PPM implant. His accompanied him today. HPI PMHx: CAD s/p PCI, a.fib/flutter s/p ablation He underwent PPM implant on 07/09/2023. Dr. Vilchis wanted patient seen within a few days after discharge due to bleeding noted during procedure. His episodes of palpitations and dizziness have decreased. Instead of happening multiple times a day only occurred once a day. He had an episode yesterday while walking around in [facility]. He notes that he does not wear compression stockings. He had some palpitations this AM, lasted maybe 5 minutes then resolved on its own. BP running 120s/80s. No recent episodes of aphasia. He is having issues with diarrhea. He has seen a GI specialist but doesn't feel like they are searching for a cause. He would like to see another GI specialist. Patient Active Problem List Diagnosis Paroxysmal atrial fibrillation (CMS/HCC) Essential hypertension Coronary artery disease involving [place] coronary artery of [place] heart without angina pectoris Recurrent falls History [...] Bilateral partial vocal cord paralysis Muscle strain Acute blood loss anemia Paraesophageal hernia Sick sinus syndrome (CMS/HCC) Past Medical History: Diagnosis Date Arrhythmia Atrial [...] date: 1967 Quit date: 1983 Years since quittin.1 Smokeless tobacco: Former Types: Chew Quit date: [...] exertion, irregular heartbeat, leg swelling (resolves by morning, minimal), near-syncope, palpitations and syncope. Musculoskeletal: Positive for arthritis, back pain, joint pain and myalgias. Neurological: Positive for dizziness, headaches, light-headedness and sensory change. All other systems reviewed and are negative. OBJECTIVE Visit Vitals BP 110/80 (BP Location: Right arm, Patient Position: Sitting) Pulse 82 Ht 1.981 m (more content not included)... [facility] 07-11-2023 Note Patient here for wou nd check s/p PPM placement with Dr. Vilchis on 07/08/2022. Still has all his usual symptoms but says they are not like they were . Review of Systems Cardiovascular: Positive for chest pain, dyspnea on exertion, irregular heartbeat, leg swelling (resolves by morning, minimal), near-syncope, palpitations and syncope. Musculoskeletal: Positive for arthritis, back pain, joint pain and myalgias. Neurological: Positive for dizziness, headaches, light-headedness and sensory change. All other systems reviewed and are negative. [facility] 07-09-2023 Note Indications for perm anent pacemaker implantation and loop recorder removal: The patient is a 68-year-old gentleman who has developed sick sinus syndrome with periods of junctional bradycardia alternating with tachycardia As documented by an implantable loop recorder. He has had several syncopal Episodes associated with bradycardia. Because of this he will undergo permanent pacemaker implantation with implantable loop recorder removal. Procedure: After written informed consent was obtained he was brought to the pacemaker laboratory in the fasting state. A contrast injection for venography of the left upper extremity was performed to delineate the course and patency of the left subclavian. The left subclavicular fossa was then prepped and draped in usual manner and 1% Xylocaine solution infiltrated for local anesthesia. Utilizing percutaneous technique the left subclavian was cannulated and under fluoroscopic guidance a guidewire advanced to the level of the inferior vena cava to ensure neurovascular placement. Following initial sharp incision meticulous blunt dissection was employed to create a subfascial pocket. Via 2 breakaway introducer sheaths Biotronik active-fixation leads were fluoroscopically guided into positions in the right ventricular apical region and in the right atrial appendage. The active-fixation coils of each were deployed and the leads were sutured into place with an 0 silk suture. They were connected to a Biotronik dual-chamber pacing system. This was placed in the previously created subfascial pocket. Via off field telemetry adequate sensing and pacing levels were determined. The pacing threshold of the right ventricular lead was 0.7 V at 0.4 ms pulse width with an R wave amplitude of 10 mV and impedance of 819 ohms. The right atrial lead had a pacing threshold of 0.7 V at 0.4 ms pulse width with a P wave amplitude of 3.3 mV and impedance of 526 ohms. The pocket was then irrigated with an antibiotic solution. The fascial layer closed with a continuous 2-0 Vicryl suture. The subdermal area with interrupted 3-0 Biosyn sutures placed utilizing a buried knot technique. Attention was then turned to the site of the implantable loop recorder. Utilizing fluoroscopic guidance the location was identified and lidocaine infiltrated for local anesthesia. Following initial sharp incision meticulous blunt dissection was employed to open the subcutaneous pocket where in the device lie and it was removed. Hemostasis was obtained by electrocautery and the subdermal area was closed with interrupted 3-0 Biosyn sutures placed utilizing a buried knot technique. The skin surface of both wounds were closed with Dermabond glue and the both wounds were dressed with a Telfa pad and Tegaderm dressing. Sponge and needle counts were correct at the end of the case. Prior to the procedure the patient received 1 g of intravenous vancomycin as antibiotic prophylaxis. Conscious sedation was maintained throughout the case with intravenous midazolam and fentanyl as well as ketamine. He was returned to the holding area in stable hemodynamic condition. Final impressions: 1. Dual-chamber pacemaker insertion 2. Loop recorder removal 3. Fluoroscopy 4. Conscious sedation 5. Contrast injection for venography of the upper extremity Shukri Vilchis M.D. [facility] Photographic Specialisttechnical education teacher and Pediatrics Director: Cardiac Electrophysiology Program [facility] 07-09-2023 Note Patient: Yoli Antunez Jr. Procedure Information Date/Time: 07/09/23 1230 Procedure: Pacemaker DC new - biotronik DC pacemaker implant Location: [facility] [employer] 1 EP / [facility] (Cath) Providers: Shukri Vilchis MD Clinical information reviewed: Allergies Meds Physical Exam Airway Mallampati: III Cardiovascular - normal exam Dental Pulmonary - normal exam Abdominal - normal exam Anesthesia Plan ASA 3 CSE Anesthetic plan and risks discussed with patient. Use of blood products discussed with patient who consented to blood products. Plan discussed with attending. Additional Equipment Requests [facility] 06-17-2023 Note Jayme Antunez is a pleasant 68 year old male previously evaluated for episodes of syncope and near syncope with history of atrial fibrillation and rf ablation at our [facility] in the [facility] at the [facility]. He was recently evaluated by Dr. Vilchis and noted to have a sick sinus syndrome-tachycardia/ bradycardia syndrome, to undergo PPM implantation. ILR data reveals alternating bradycardia, tachycardia (a flutter) per Dr. Vilchis last visit 05/30/2023. He was sent for an echocardiogram and stress test which I reviewed today. Stress test negative for ischemia. Likely artifact. Echocardiogram with LVH and low normal EF. Aortic root/ ascending aorta mild dilated. Chief Complaint: Syncope. 4-5 daily. No trauma. Dystonia, verbal aphasia. 1-2 monthly. Review of Systems Neurological: Positive for dizziness, headaches and light-headedness. Objective Vitals reviewed. Constitutional: Appearance: Healthy appearance. Not in distress. Neck: Vascular: No JVR. JVD normal. Pulmonary: [...] and oriented to person, place and time. Lab Review: Stress test 05/2023: [facility] CONCLUSION: 1. No acute or reversible ischemia. 2. Diaphragm attenuation artifact versus mildly decreased perfusion of the inferior wall; stable between stress and rest imaging. Attenuation artifact is suspected. 3. Normal wall motion, left ventricle volume, and ejection fraction. Dictated by: Donnell Du M.D. on 06/07/2023 at 12:03 Approved by: Donnell Du M.D. on 06/07/2023 at 13:36 [facility] echocardiogram 05/2023: CONCLUSION: 1. The left ventricle is normal in size and exhibits mild concentric hypertrophy with low normal systolic function. LVEF is 50 to 55%. 2. Mild to moderate right ventricular dilatation with normal systolic function. 3. Moderate biatrial dilatation. 4. Normal diastolic function. 5. Mild mitral, aortic, pulmonic and tricuspid regurgitation. 6. Normal right-sided pressures. 7. No pericardial effusion. 8. AORTIC ROOT: Aortic root is mildly to moderately dilated (4.4 cm), ascending aorta is mildly dilated (4.1 cm). Assessment/Plan The primary encounter diagnosis was Autonomic dysfunction. Diagnoses of Paroxysmal atrial fibrillation (CMS/HCC) and Sick sinus syndrome (CMS/HCC) were also pertinent to this visit. Problem List Items Addressed This Visit Circulatory Paroxysmal atrial fibrillation (CMS/HCC) Other Visit Diagnoses Autonomic dysfunction - Primary Sick sinus syndrome (CMS/HCC) We discussed stress and echo. Autonomic dysfunction/ syncope; unstable: PPM Sick sinus syndrome; tachycardia/ bradycardia; unstable : PPM We discussed pre surgery, benefits, risks post op PPM He had all questions answered. RTC [address] [place] [address] 05-31-2023 Note HNO ID: [id number] Author: MARÍA PEARL APRN.NEETU Service: ? Author Type: Nurse Practitioner Type: [...] visit. Either the patient or their legal representative personal service has been informed of the risks and [...] will repeat tilt table testing here at [facility]. We reviewed the diagnosis of orthostatic hypotension. [...] was seen by Dr. Vilchis at the [facility] yesterday. Dr. Vilchis feels that Jamil has sick sinus syndrome. He is going to have a pacemaker placed. Jamil is going to have an echocardiogram and stress test next week. Pacemaker to follow the above testing. Skin nerve biopsy here at [facility] not indicative of small fiber neuropathy. Abnormality [...] Medications Reviewed ergocal (more content not included)... [facility] 05-31-2023 History of Present illness Narrative Yoli Antunez is a 68 year old male. Patient presents with: Follow Up Today I had the opportunity to have a virtual visit with Yoli Antunez I have communicated my name and active licensure. The patient's identity and physical location were verified at the time of this visit. Either the patient or their legal representative personal service has been informed of the risks and [...] will repeat tilt table testing here at [facility]. We reviewed the diagnosis of orthostatic hypotension. [...] was seen by Dr. Vilchis at the [facility] yesterday. Dr. Vilchis feels that Jamil has sick sinus syndrome. He is going to have a pacemaker placed. Jamil is going to have an echocardiogram and stress test next week. Pacemaker to follow the above testing. Skin nerve biopsy here at [facility] not indicative of small fiber neuropathy. Abnormality [...] He was seen by Dr. Vilchis at [facility] who would like to place a [...] which included preparing to see the patient, [id number] patient care, completing clinical documentation, obtaining and/or [...] this visit on 05/31/23. María Pearl MSN, HUMAN PROJECTILE, COVER REMOVER-C documented in this encounter [facility] 05-30-2023 Note SYNCOPE AND AUTONOMI C DISORDERS CLINIC Reason for Consultation: Sick sinus syndrome/tachybradycardia syndrome HPI: Yoli Braxtonjordi Isidro is a 68 y.o. year old with [...] MR HEAD ANGIO WO IV CONTRAST 07/09/2022 [facility] MR IMAGING MR NECK ANGIO WO IV CONTRAST 07/09/2022 MR NECK ANGIO WO IV CONTRAST 07/09/2022 [facility] MR IMAGING NECK SURGERY THYROIDECTOMY SH: Social [...] no dry mouth, (more content not included)... [facility] 2023 Note [facility] Electrophysiology Consult Note Reason for visit: dysautonomia 05/21/23: He is here for ER follow-up for chest pain he was evaluated at [facility] recently for chest pain but was [...] to symptoms 01/21/23 HPI: Yoli Peoples Harmony Isidro is a 68 y.o. year old with [...] table scheduled as well. He has a [employer] loop and I reviewed his loop data, [...] MR HEAD ANGIO WO IV CONTRAST 07/09/2022 [facility] MR IMAGING MRA NECK WO IV CONTRAST 07/09/2022 MR NECK ANGIO WO IV CONTRAST 07/09/2022 [facility] MR IMAGING NECK SURGERY THYROIDECTOMY SH: Social [...] 25 mg ta (more content not included)... [facility] 2023 Note Patient here for [facility] ED for chest pain. He's [...] All other systems reviewed and are negative. [facility] 05-20-2023 Evaluation note Encounter Date Diagnosis Assessment Notes Apr, Abdominal pain (ICD-10 - R10.9) Apr, Diarrhea (ICD-10 - R19.7) [employer] Other 01-26-2024 NoteThe patient stated that he has a follow-up appointment with Dr. Vilchis on Saturday and wants to wait until after that appointment before he emails us his application. He mentioned that they might be changing some things around. He also let me know that he did receive the Medicare Extra Help denial in the mail. I told him that we'll follow up again with him next week. Keeley Don, [facility] 06/05/23 3:27 [facility] NotePatient called back and I discussed Roly's complete note. Patient is going to apply for Extra Help, I am sending all the information to him via email ([email or web address]). Wendi Estrada, [facility] 05/21/23 2:44 [facility]Un[facility] NoteSpecialty Pharmacy Note: Corlanor Supervising Physician & Clinic:??Yandel Shen NP/ [facility] Yoli Antunez Jr. is a 67 y.o. [...] submit PA via CMM. Shelly Murcia, P4 R[facility] Obgyn 05/17/23 4:12 PM [facility] [phone] Marge Funes PharmD, HOSSEINCP 05/20/23 1:07 PM [facility] [phone] Hospital01-26-2024 NotePatient is still waiting to hear back from the doctor. Okay to follow up Saturday to see if he wants to proceed with corlanor. Aliya De La Cruz, [facility] 06/14/23 9:21 [facility]01-26-2024 NoteReceived provider portion. Marge Funes PharmD, GUIDO 05/29/23 2:40 PM [facility] [phone] Hospital01-26-2024 NoteSpoke with the patient. Patient stated that the insurance sent a letter in the mail on 05/20/2023 stating stating that it was covered. I told the patient that even with the insurance covering the medication, it will still cost $133. T he patient also stated that he has sent the application to [employer]. I told him if he could send [...] and then send in the application to [employer]. Soco Schafer, Rn Obgyn 05/28/23 3:29 PM [facility] [phone] Hospital01-26-2024 NoteSpoke to the patient. I think when [...] that he hasn't sent anything in to [employer]. He will fill out that paperwork and send to me in an email today. I explained that [employer] usually requires the Extra Help denial but that it might take weeks to get that letter so we can go ahead and submit the [employer] PAP application without it and see what they say. Once I get his portion and the provider portion I will fax everything in. I am emailing the provider portion today, doesn't look like that was done. Marge Funes, PharmD, BCACP 05/29/23 10:11 AM [facility] [phone] Hospital01-26-2024 NotePatient called back today and would like us to send him the PAP form. He looked up the Extra Help information and he said that he misses it by $100. We informed him that he still has to apply because we need a denial letter. I sent him the PAP via e-mail for him to start filling that out. Wendi Estrada, [facility] 05/22/23 12:51 PMBluff[facility] Hospital01-26-2024 NotePer message from Jackie Banks pt is to receive a permanent pacemaker and corlanor is going to be held. We will not continue follow up. Discarded folder. Aliya De La Cruz, [facility] 06/20/23 9:26 AMBluffton Hospital01-26-2024 NotePrior Authorization for Corlanor has been approved 04/20/2023-05/19/2024. Case ID/Authorization Number:[id number] No letter to scan at this time. [...] PAP/has signed the forms in appt. Roly Cuenca CPhT [facility] 05/20/23 at 2:41 PMUnFirelands Regional Medical Center12-26-2023 Procedure note [facility]12-13-2023 NotePatient here for 1 year follow up s/p Watchman implant. Review of Systems Cardiovascular: Positive for chest pain, dyspnea on exertion, irregular heartbeat, leg swelling (resolves by morning), near-syncope, palpitations and syncope. Musculoskeletal: Positive for arthritis, back pain, joint pain and myalgias. Neurological: Positive for dizziness, headaches, light-headedness and sensory change. All other systems reviewed and are negative.[facility] 04-03-2023 NoteCardiovascular Medicine [facility] SUBJECTIVE Chief Complaint Patient presents with [...] (CMS/HCC) Essential hypertension Coronary artery disease involving [place] coronary artery of [place] heart without angina pectoris Recurrent falls History [...] (360 mg) by m (more content not included)...[facility]12-11-2023 Evaluation note* Encounter Date Diagnosis Assessment Notes Treatment Notes Treatment Clinical Notes Mar, Abdominal pain (ICD-10 - R10.9) Mar, Diarrhea (ICD-10 - R19.7) [employer] Other 11-29-2023 Evaluation note* Encounter Date Diagnosis Assessment Notes Treatment Notes Treatment Clinical Notes Feb, Diarrhea (ICD-10 - R19.7) Feb, Hiatal hernia (ICD-10 - K44.9) [employer] Other 11-14-2023 NoteSubjective Yoli Peoples Harmony Isidro is a 67 y.o. male we follow for autonomic dysfunction, orthostatic hypotension. He has episodes of aphagia lasting 1-12 hours associated with presumed drop in BP. He has had expressive aphagia on tilt table testing at the [facility] Dec 2022 (see below). Duration about 12 hours Chief Complaint: Neurogenic orthostatic hypotension Fludrocortisone: no effective Pyridostigmine: side effects Effexor: not effective BP labile Highest BP 150/90mmhg Lowest BP 82/46mmhg Review of Systems Cardiovascular: Positive for near-syncope and syncope. Last syncope Dec 2022. On hay wagon. [place] it coming, did not get off wagon fast enough. Syncope. No trauma. [place] ED. 24 hour observation. BP 80/40mmhg Over [...] but had expressive language aphagia. Lab Review: [facility] Tilt. * FINAL IMPRESSIONS * - [...] no improvement I consulted with Dr. Jimenez, rn rehab in clinic and decision made to have him evaluated in ED. I called the ED attending and reported the admission, to which she agreed he may need a stroke work up.[facility]11-06-2023 NoteHNO ID: [id number] Author: Joann Stark PA-C Service: ? Author Type: Physician Rack Carrier Type: Progress Notes Filed: 02/25/2023 2:52 PM Note Text: Skin Biopsy Procedure Note Skin Biopsy Accession Number: [id number] Biopsy Date: 02/25/2023 Referring physician: María Pearl [...] Procedure Note Procedure confirmed with provider and support services specialist. Yes, left leg 2 skin biopsies. The [...] home. Specimens were labeled and sent to [facility] Cutaneous Nerve Laboratory. Procedure was performed by: Joann Stark PA-C Assistance in supply/equipment preparation performed by: DAVID Downs Sign out is complete.[facility]11-06-2023 History of Present illness Narrative* Joann Stark PA-C - 02/25/2023 2:09 PM EST Skin Biopsy Procedure Note Skin Biopsy Accession Number: [id number] Biopsy Date: 02/25/2023 Referring physician: María Pearl [...] Procedure Note Procedure confirmed with provider and support services specialist. Yes, left leg 2 skin biopsies. The [...] home. Specimens were labeled and sent to [facility] Cutaneous Nerve Laboratory. Procedure was performed by: Joann Stark PA-C Assistance in supply/equipment preparation performed by: DAVID Downs Sign out is complete. documented in this encounterC[facility]10-17-2023 Miscellaneous Notes* Telephone Encounter - Shivani Ambriz RN - 02/05/2023 1:00 PM EDT Images from the original note were not included. María Pearl APRN.AIRFRAME AND POWERPLANT MECHANIC You 7 minutes ago (12:52 PM) This is a normal result. [place] YAMILA Carnes, RN * Telephone Encounter - Shivani Ambriz RN - 02/05/2023 12:48 PM EDT Images from the original note were not included. Copper: YAMILA Carnes, RN * Telephone Encounter - Aydee Hunter - 02/05/2023 12:06 PM EDT Scanned in results from [facility] for review documented in this encounterCleveland Clinic Luther[facility] Hospital10-12-2023 History of Present illness Narrative* Yossi [...] and scan are done. documented in [facility]Day[facility] Work Phone: 1(288) 770-524210-12-2023 Instructions* Patient Instructions* Yossi Chen MD - 01/31/2023 3:00 PM EDT I will get stool culture and CT scan to figure out the reason for the abdominal pain and diarrhea documented in this encounterDayton [facility] Hospital Work Phone: 1([phone]) 965-218610-09-2023 Miscellaneous Notes* Telephone Encounter - Paul Burns RN - 01/28/2023 4:08 PM EDT Images from the original note were not included. María Pearl, BRENNA.AIRFRAME AND POWERPLANT MECHANIC You 6 hours ago (9:39 AM) I have a message out to headache clinic about adjusting his medication. CAROL CageN, RN, BA documented in this encounterCleveland Clinic Luther[facility] Hospital10-09-2023 Miscellaneous Notes* Telephone Encounter - Paul Burns RN - 01/28/2023 3:39 PM EDT KS sent MCM to patient. Patient read. YAMILA Cage, RN, BA documented in this encounterCleveland Clinic Luther[facility] Hospital10-09-2023 Miscellaneous Notes* Telephone Encounter - Paul Burns RN - 01/28/2023 10:43 AM EDT Images from the original note were not included. María Pearl APRN.AIRFRAME AND POWERPLANT MECHANIC You 15 minutes ago (10:27 AM) Thank you. Appears normal. [place] YAMILA Cage, RN, BA * Telephone Encounter - Paul Burns RN - 01/28/2023 9:58 AM EDT Images from the original note were not included. YAMILA Cage, RN, BA * Telephone Encounter - Aydee Hunter - 01/28/2023 9:36 AM EDT Scanned in results from [facility] for review documented in this encounterCleveland Clinic Luther[facility] Hospital10-05-2023 NoteHNO ID: [id number] Author: Peggy Bravo RN Service: ? Author [...] RN Orders placed 01/23/23 by María Pearl APRN.AIRFRAME AND POWERPLANT MECHANIC Allergies: Penicillins, Tikosyn [Dofetilide], and Vancomycin Test done in consult with María Pearl APRN.AIRFRAME AND POWERPLANT MECHANIC . Procedure Start Time: 1419 Height 198.1 [...] RN; Briana Emmanuel RN Procedure Finish Time: 1523[facility]10-04-2023 NoteHNO ID: [id number] Author: María Pearl APRN.AIRFRAME AND POWERPLANT MECHANIC Service: ? 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 As an stage electrician helper, he would be up and down and making frequent postural changes. 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 The lightheadedness and dizziness does NOT [...] follow with the headache clinic here at [facility]. On May 23, 2022 he did [...] by cardiology, Jackie Banks CNP, at the [facility]. Jackie had a concern for autonomic dysfunction. She placed Jamil on pyridostigmine, but he had significant diarrhea and it was thus discontinued. He has constant bilateral tinnitus. He states it sounds like an air gabriel. He has not seen ENT. He has a ILR and watchman. These have not revealed a cause for his lightheadedness or dizziness. He did see his rn rehab this week who felt his symptoms are [...] focal stenosis, occlusion, or aneurysmal dilatation. Complete mentasta of Michel. He is brought in today [...] not taking: Reported on (more content not included)...[facility]10-04-2023 NoteHNO ID: [id number] Author: Kristen Wagner OCCA Service: ? Author Type: Ice Cream Freezer Helper Type: Progress Notes Filed: 01/23/2023 10:15 AM [...] How severe is this focusing problem? : ModerateSelect Medical [facility] 01-21-2023 NoteUT Electrophysiology Consult Note Reason for visit: dysautonomia HPI: Yoli Peoples Harmony Isidro is a 67 y.o. year old with [...] table scheduled as well. He has a [employer] loop and I reviewed his loop data, [...] MR HEAD ANGIO WO IV CONTRAST 07/09/2022 [facility] MR IMAGING MRA NECK WO IV CONTRAST 07/09/2022 MR NECK ANGIO WO IV CONTRAST 07/09/2022 [facility] MR IMAGING NECK SURGERY THYROIDECTOMY SH: Social [...] no difficulty hearing, no (more content not included)...[facility]10-02-2023 NotePatient here for 1 mo follow up. He was started on Crestor and Ranexa by Dr. Mesa last month. He didn't start Crestor because my cholesterol is good . He did start Ranexa but doesn't think it's helping him with angina. Says he actually feels worse. He presented to [facility] ED last week for CVA-like symptoms [...] light-headedness. All other systems reviewed and are negative.[facility] 12-31-2022 NoteHNO ID: [id number] Author: Sarbjit Richardson APRN.AIRFRAME AND POWERPLANT MECHANIC Service: ? Author Type: Nurse Practitioner Type: Progress Notes Filed: 12/31/2022 5:04 PM Note Text: [facility] Follow up visit December 31, 2022 [...] He was evaluated by Cardiology at the [facility] for syncopal episodes. 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 put in in the front rock loader and helped him to the house [...] essentially unremarkable including troponins and ECG 09/11/2022 [facility]- Cardiology - Jackie Banks BUSINESS ADVISOR wrote: I copied and pasted my initial consult note from [facility] date 07/20/2022 for continuity of care: Hx paroxysmal atrial fibrillation. Undervent a watchman device implant at [facility] 03/06/2022. History of CAD. AAA not increased, [...] Last evaluated one month ago [facility] neurology [facility]. Recent MRA MRV. HPI: Syncope began [...] Items Addressed This Visit Referred back [facility]; Headache 1 Onset: - Migraine headache s Location: frontal (occipital vertex) Quality/ (more content not included)...[facility]09-11-2023 History of Present illness Narrative* Sarbjit Richardson, BRENNA.AIRFRAME AND POWERPLANT MECHANIC - 12/31/2022 3:15 PM EDT [facility] Follow up visit December 31, 2022 [...] He was evaluated by Cardiology at the [facility] for syncopal episodes. 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 put in in the front rock loader and helped him to the house [...] essentially unremarkable including troponins and ECG 09/11/2022 [facility]- Cardiology - Jackie Banks NP wrote: I copied and pasted my initial consult note from [facility] date 07/20/2022 for continuity of care: Hx paroxysmal atrial fibrillation. Undervent a watchman device implant at [facility] 03/06/2022. History of CAD. AAA not increased, [...] Last evaluated one month ago [facility] neurolog[facility]. Recent MRA MRV. HPI: Syncope began [...] Items Addressed This Visit Referred back to [facility]; Headache 1 Onset: - Migraine headache [...] Date AAA (abdominal aortic aneurysm) without rupture ([facility]) Arthritis Atrial fibrillation/flutter CAD (coronary artery disease) CKD (chronic kidney disease) stage 3, GFR 30-59 ml/min ([facility]) Ex-smoker Gastric ulcer GERD (gastroesophageal reflux disease) Gout History of GI bleed HLD (hyperlipidemia) Hypertension 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 ADA treated with BiPAP Peripheral neuropathy Restless leg syndrome TIA (transient ischemic attack) x 2 ALLERGIES Allergen Reactions Penicillins Unknown Tikosyn [Dofetilide] Other: See Comments Aphasia, dizzy, muscle cramps Vancomycin Anaphylaxis MR neck / head angio 07/09/2022- at [facility] Impression No gross evidence for flow-limiting stenosis of bilateral extrarenal vertebral or carotid arteries accounting for extensive patient motion artifact. If persistent concern for an abnormality of the carotid or vertebral arteries, consider CTA if clinically indicated. Impression No focal stenosis, occlusion, or aneurysmal dilatation. Complete mentasta of Michel. CT brain 05/23/2022 Impression *Negative [...] osteopenia, and partially imaged atlantoaxial arthritic changes. Disintegrator (topogram) images: No additional findings. HEADACHE SCORES: [...] articulation, and clear,coherent, and relevant. Short and snf memory, cognition and general fund of knowledge [...] followed by aphasia. He was evaluated in [place] for syncope - felt it was neurocardiogenic [...] which included preparing to see the patient, tneh-rv-qvfs patient care, completing clinical documentation, obtaining and/or reviewing separately obtained history, performing a medically appropriate examination, counseling and educating the patient/family/caregiver, and ordering medications, tests, or procedures. Sarbjit Richardson APRN.AIRFRAME AND POWERPLANT MECHANIC Headache Section [facility] December 31, 2022 5:03 PM documented in this encounterCleveland Clinic Luther[facility] Hospital09-08-2023 NotePatient here for follow up ED visit at [facility]. 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 and suddenly starting having chest pain, dizzniess, diaphoresis, and SOB.[facility]09-08-2023 NoteUTP CARDIOLOGY PROGRESS NOTE HPI: Yoli [...] is maintained on a (more content not included)...[facility]08-03-2023 NoteSend Summary: Discharge Summary Providers: Provider RoleProvider Name ReferringHoRadha denise Abraham PrimaryHohman, Jennifer Note Recipients: Radha Burris MD - [id number] [] Discharge: Summary: Admission Date: .21-Nov-2022 05:06:00 [...] discharge: Full Code Electronic Signatures: Sivan Costa (HUMAN PROJECTILE-AIRFRAME AND POWERPLANT MECHANIC) (Signed 22-Nov-2022 12:13) Authored: Send Summary, Summary Content, Ongoing Care, DNR Status Yossi Chen) (Signed 22-Nov-2022 12:27) Authored: Summary Content, Ongoing Care, Note Completion Last Updated: 22-Nov-2022 12:27 by Yossi Chen)[facility] 11-21-2022 NotePost Operative Note: PreOp Diagnosis: symptomatic hiatal hernia Post-Procedure Diagnosis: same Procedure: 1. Laparoscopic repair of Type 3 paraesophageal hernia with Toupet wrap and gastroscopy 2. 3. 4. 5. Surgeon: April Resident/Fellow/Other Rack Carrier: Adrián/Elio Estimated Blood Loss (mL): none Specimen: [...] circumferentially. The retroesophageal window was created. The [place] drain was placed. I proceeded with mediastinal [...] esophagus to the right side. A lighted 56-Armenian bougie was placed. The shoeshine maneuver was [...] #1 Ethibond with a Tony-Ran in a jdvlrl-nn-vgoyr fashion. The liver retractor was removed. The [...] Completion Last Updated: 21-Nov-2022 13:27 by Yossi Chen)[facility] 11-21-2022 History of Present illness Jcniewbzb83-llqn-cea patient who underwent laparoscopic repair of paraesophageal hernia with toupet wrap on November 21. He was doing well until yesterday when he was playing tug-of-war with his dog. Immediately, he started having excruciating pain over the LUQ incision. The coughing with meal has resolved. Montezs report foods getting hang up in his throat requiring him to cough it up or wash it down withwater. Denies heartburn and acid reflux.-[place] Sur[facility] [address] DO Work Phone: 1(232) 354-590808-02-2023 History of Present illness Narrative 67-year-old patient [...] reflux, heartburn and having less coughing with mealWill[facility] [address] DO Work Phone: 1(163) [phone] NoteHistory & Physical Reviewed: I have reviewed [...] Completion Last Updated: 21-Nov-2022 07:15 by Yossi Chen)[facility] 11-16-2022 Miscellaneous Notes* Telephone Encounter - Jessica Scott - 11/16/2022 5:55 PM EDT Received faxed report of medical records done at . Uploaded via [employer], will be available in [employer] for review shortly. documented in this encounterCleveland Clinic Luther[facility] Hospital07-03-2023 Miscellaneous Notes* Telephone Encounter - Sarbjit Richardson APRN.CNP - 10/22/2022 4:33 PM EDT Opened in error Sarbjit Richardson APRN.CNP documented in this encounterCleveland Clinic Luther[facility] Hospital06-30-2023 NoteTEE from 04/10/2022 showing watchman implant in good position, no device leak noted and no thrombosisUnFirelands Regional Medical Center06-30-2023 NoteThis post watchman implantation with CHANTELLE reviewed from 04/10/2022 showed watchman implant in good position with no thrombosis and no device leak Is on aspirin daily and to [place] him for rate controlUnFirelands Regional Medical Center06-30-2023 NoteHypertension is well controlled continue current med regimeUnFirelands Regional Medical Center06-30-2023 NoteCoronary artery disease is stable without concerning symptoms Continue GDMT continue risk factor modifications- heart healthy diet, regular exercise as tolerated and continue all medications.[facility] 10-19-2022 NoteUTP CARDIOLOGY PROGRESS NOTE HPI: Yoli Peoples Jeseniamisaeljordi Isidro is a 67 y.o. male here for [...] on warfarin, and inabili (more content not included)...[facility]06-30-2023 NotePatient here for follow up 6 mo [...] light-headedness. All other systems reviewed and are negative.[facility] 10-18-2022 NoteHNO ID: [id number] Author: Michaela Polo RN Service: ? Author [...] dizziness. IV removed. Pt discharged from treatment room.[facility]06-29-2023 History of Present illness Narrative* Michaela Polo [...] discharged from treatment room. documented in this encounterCleveland Clinic Luther[facility] Hospital06-26-2023 NotePROCEDURE DETAILS Preoperative Diagnosis: Sleep apnea, G47.30 Postoperative Diagnosis: Sleep Apnea Surgeon: Arabella Terry Resident/Fellow/Other Rack Carrier: None of these were associated with this [...] Completion Last Updated: 15-Oct-2022 11:11 by Arabella Terry)[facility]06-26-2023 Miscellaneous Notes* Op Note - Arabella Butt MD - 10/15/2022 11:02 AM EDT PROCEDURE DETAILS Preoperative Diagnosis: Sleep apnea, G47.30 Postoperative Diagnosis: Sleep Apnea Surgeon: Arabella eTrry Resident/Fellow/Other Rack Carrier: None of these were associated with this [...] 11:11 by Arabella Terry) documented in this [facility] Work Phone: 1(686) 978-190506-26-2023 Note* Op Note - Arabella Butt MD - 10/15/2022 11:02 AM EDT PROCEDURE DETAILS Preoperative Diagnosis: Sleep apnea, G47.30 Postoperative Diagnosis: Sleep Apnea Surgeon: Arabella Terry Resident/Fellow/Other Rack Carrier: None of these were associated with this [...] Last Updated: 15-Oct-2022 11:11 by Arabella Terry) [facility] Work Phone: 1(159) 575-324306-06-2023 Chief complaint Narrative - Reported* An interactive audio and video telecommunication system which permits real time communications between the patient (at the originating site) and provider (at the distant site) was utilized to providethis telehealth service. * Verbal consent was requested and obtained from YOLI ANTUNEZ on this date, 09/25/2022 02:30 PM, for a telehealth visit. * Dysphagia follow-up AD-Mytmbqgjmroaje-[facility]ex Work Phone: 1(508) [phone] History of Present illness Narrative* 67 year [...] more in his throat. Seeing [facility]y at [facility] for his intermittent aphasia. Still awaiting manometry results. * 09/04/22: * Here for follow-up. Esophagram completed 08/10/22 with moderate hiatal hernia, possible inflammatorynarrowing at GEJ, also area of mucosal irregularity for which endoscopy was recommended. He had manometry placed under endoscopy on 08/30/22, overall esophagus appeared normal on their exam with evqze7xy nodule at GEJ that was biopsied. Pathology [...] esophagus and pill sticking in the vallecula VH-Tvfanmimhxsxlq-Qirqtxq Work Phone: 1(389) [phone] NoteHNO ID: [id number] Author: Sarbjit Richardson APRN.AIRFRAME AND POWERPLANT MECHANIC Service: ? Author Type: Nurse Practitioner Type: Progress Notes Filed: 09/13/2022 11:43 AM Note Text: [facility] Virtual Visit Follow up During this COVID-19 pandemic, patient's headache clinic evaluation was scheduled as a virtual visit using the following platform This visit was conducted as a virtual visit, with patient's permission, via .telephone visit It required patient-provider interaction for the medical decision making as documented below. Patient stated name and Patient location [place] I have communicated my name and active licensure. The patient's identity and physical location were verified at the time of this visit. Either the patient or their legal representative personal service has been informed of the risks and [...] and sore throat after infusion. Jackie Banks BUSINESS ADVISOR wrote 07/20/2022: [facility] [place] [facility]. Yoli Antunez is a pelasant 67 year old male referred to Dr Shukri Vilchis and the Syncope and Autonomic Disorders Clinic in the Heart [facility] Vascular Center at the [facility] for an evaluation of syncope. Hx paroxysmal atrial fibrillation. Undervent a watchman device implant at [facility] 03/06/2022. History of CAD. AAA not increased, [...] Last evaluated one month ago by neurolog[facility]. Recent MRA MRV. Assessment/Plan The primary [...] with treatment: Dura (more content not included)... [facility]05-16-2023 History of Present illness Narrative* 67 year [...] esophagus appeared normal on their exam with ihqxw4fl nodule at GEJ that was biopsied. Pathology [...] head turn or chin tuck * esophagram 2019 - slow clearing of the distal esophagus and pill sticking in the vallecula SQ-Fwzkpiamlqzyjb-Fkbexwa Work Phone: 1(425) 777-273405-16-2023 Chief complaint Narrative - Reported* An interactive audio and video telecommunication system which permits real time communications between the patient (at the originating site) and provider (at the distant site) was utilized to providethis telehealth service. * Verbal consent was requested and obtained from YOLI ANTUNEZ on this date, 09/04/2022 11:30 AM, for a telehealth visit. * Dysphagia follow-up RV-Mphmfyxeatnemf-[facility]se Work Phone: 1([phone]) 319-622805-11-2023 NotePatient Name: Yoli Antunez Procedure Date: 08/30/2022 7:32 AM Date of : 1955 Admit Type: Outpatient Site: [place] Procedure Room 5 Ethnicity: Not or Race: White Attending MD: ELISEO Williamson, [id number] Procedure: Upper GI endoscopy Indications: Dysphagia for 5 years to both liquids and solids Patient Profile: This is a 67 year old male. Refer to note in patient chart for documentation of history and physical. Providers: ELISEO Williamson (Doctor), Jaylen Lo RN (Nurse), Florentino De Dios, Fire Safety Director, Kristin Mcdaniels RN (Nurse) Referring: Radha Burris [...] specimen was done by the nurse and electrical electronics technician using the patient's name and medical record number. Estimated blood loss was minimal. A single 3 mm nodule was found at the gastroesophageal junction, 39 cm from the incisors. Biopsies were taken with a cold forceps for histology. Verification of patient identification for the specimen was done by the nurse and electrical electronics technician using the patient's name and medical [...] and technici (more content not included)...PROVATION - [id number] Reason for visit Narrative* An interactive audio and video telecommunication system which permits real time communications between the patient (at the originating site) and provider (at the distant site) was utilized to providethis telehealth service. * Verbal consent was requested and obtained from YOLI ANTUNEZ on this date, 08/13/2022 03:15 PM, for a telehealth visit. [facility] [address] [place] Work Phone: 1(490) [phone] Chief complaint Narrative - Reported* An interactive audio and video telecommunication system which permits real time communications between the patient (at the originating site) and provider (at the distant site) was utilized to [facility] tele[facility] service. * Verbal consent was requested and obtained from YOLI ANTUNEZ on this date, 07/31/2022 12:30 PM, for a telehealth visit. * Swallow MH-Epyxspxcrlmyzi-Zktiixb Work Phone: 1(605) 394-876704-11-2023 History of Present illness Narrative* 67 year [...] esophagus and pill sticking in the vallecula TN-Zdqdzxawwfwxzd-Fjjctyt Work Phone: 1([phone]) [phone] Miscellaneous Notes* Telephone Encounter - Jonathan Pascual - 07/30/2022 3:40 PM EDT Received call from patient regarding Message Per Patient Local ERs do not understand patients symptoms, would like to know if he can receive response from provider urgently * Telephone Encounter - Jessica Mccoy Pss - 07/30/2022 3:13 PM EDT Patient last seen 05/31/2022, but had infusions 07/26/2022. documented in this encounterCleveland Clinic Luther[facility] Hospital04-06-2023 NoteHNO ID: [id number] Author: Eleonora Cabral RN Service: ? Author [...] with infusion , instructed on 45 day follow-up.[facility]04-06-2023 History of Present illness Narrative* Eleonora Cabral RN - 07/26/2022 1:52 PM EDT 13:35 Patient admitted to infusion unit and history reviewed, medications and allergies updated. Patient has 3/10 headache and no nausea, no dizziness at this time. Patient has first Vyepti infusion of 100 mg. 1424 Patinet discharged no problems with infusion , instructed on 45 day follow-up. documented in this encounterCleveland Clinic Luther[facility] Hospital04-03-2023 Miscellaneous Notes* Telephone Encounter - Fadumo Mckenzie - 07/23/2022 11:46 AM EDT Patient last seen on 05/31/22. Asked to follow up with Infusions. documented in this encounterCleveland Clinic Luther[facility] Hospital03-24-2023 Miscellaneous Notes* Telephone Encounter - Sarbjit Richardson APRN.CNP - 07/13/2022 4:04 PM EDT There are no results in [facility] from [facility] in imaging. When did he have them done? Can they fax the results and send the disc. Sarbjit documented in this encounterCleveland Clinic Lutheran [facility] Miscellaneous Notes* Telephone Encounter - Sarbjit Richardson APRN.CNP - 06/04/2022 12:48 PM EST Orders for MRA/MRV to be mailed to patient. Sarbjit Richardson APRN.CNP documented in this encounterC[facility] Instructions* Patient Instructions* Sarbjit Richardson APRN.CNP - 05/31/2022 9:01 AM EST Greater Occipital Nerve Block Article in [place] [employer] Journal By: Bhavesh Boyd MD Many patients with chronic headache report that their pain typically arises from the neck or, more specifically, the base of the skull. Often that pain arises on one side or the other and extends forward to involve the top of the head, the pentecostalism, the forehead, the eye or some combination [...] give it at least one more try. https://americanheadachesociety.org/wp-content/uploads//Wdjxwshfv-Wbwlk-C locks_Aug-2009.pdf documented in this encounterCleveland [facility]02-09-[facility]23 History of Present illness Narrative* Sarbjit Richardson APRN.NEETU - 05/31/2022 8:00 AM EST Head[facility] Follow up visit May 31, 2022 [...] unrevealing and negative. I sent patient a [employer] message with this information and we can [...] other than aphasia. He was seen at [facility] for this previously (2020 note, migraine), and follows w/ Neurologist Dr. Wolff in [place]. His exam is entirely benign except he [...] days/month: 30 Migraine Severity: range from 3- 810. 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 Disintegrator (topogram) images: No additional findings. 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 Short and snf memory, cognition and general fund of knowledge [...] Care Visit completed when applicable. Sarbjit Richardson APRN.NEETU The risks, benefits and anticipated outcomes of [...] which included preparing to see the patient, vqnh-sg-ksjq patient care, completing clinical documentation, obtaining and/or reviewing separately obtained history, performing a medically appropriate examination, counseling and educating the patient/family/caregiver, and ordering medications, tests, or procedures. Sarbjit Richardson APRN.NEETU Headache Section [facility] May 31, 2022 documented in this encounterCleveland Clinic [facility]09-16-2022 History of Present illness Narrative* Paul [...] 168/97 (!) 143/80 Pulse: 86 63 Resp: Temp: 97.9 F (36.6 C) TempSrc: Axillary [...] discharge. Tad Corea MD Internal medicine, PGY-2 [facility], [facility] @TODAY@ 10:53 AM Attending Physician Statement I [...] MD Nephrology Attending Physician [facility] 01/05/2022 * Dariela Walker MD - 01/05/2022 10:40 AM EDT Images from the original note were not included. [facility] Office: [phone] Mehdi Mcallister DO, Meliton Willard DO, Vicente [...] Octaviano Bolden MD, Julia Vasquez, NEETU, Joanne Hameed, ENETU, Jazmine Huitron, NEETU, Tono Braun, NEETU, Annie Quijano DNP, Brunilda Fuller, NEETU, Andria Rutherford, NEETU, Akila Franks, AIRFRAME AND POWERPLANT MECHANIC, Shivani Rascon, AIRFRAME AND POWERPLANT MECHANIC, Mayte Martinez, NEETU, Aliya Reyes PA-C, Esha Kumari, YAMILET, Monica Levy, KENYA, Marifer Dunne, NEETU, Rosie Longoria, NEETU, Nohelia Morris, AIRFRAME AND POWERPLANT MECHANIC [facility] Progress Note Name: Yoli Antunez Acct: [id number] Room: IP Day: 5 Admit Date: 12/31/2021 11:15 [...] improved to 2.5, bicarb 25 Brief History: 34-vopd-fcp-year-old with prior history of CKD 3, hypertension, prior TIA, paroxysmal A. fib, aortic root aneurysm presented with right lower quadrant and flank pain, initially started on 12/28/2021 when he was evaluated at [facility]. Imaging suggested possible epiploic appendicitis versus [...] type 12/31/2021 Yes EMELIA (acute kidney injury) ([facility]) 01/01/2022 Yes CKD (chronic kidney disease) stage 3, GFR 30-59 ml/min ([facility]) 01/01/2022 Yes Non-intractable vomiting with nausea 01/01/2022 Yes Jaundice 01/01/2022 Yes Lactic acid acidosis 01/01/2022 Yes Hyperglycemia 01/01/2022 Yes Paroxysmal A-fib ([facility]) 01/01/2022 Yes History of TIA (transient ischemic attack) 01/01/2022 Yes Apnea 01/01/2022 Yes History of kidney stones 01/01/2022 Yes Metabolic acidosis 01/03/2022 Yes History of peptic ulcer 01/01/2022 Yes Overview Signed 01/01/2022 2:21 AM by Darline Walden MD S/p egd at [facility] 08/2020 Plan: S/p cholecystectomy day3 -Continue Percocet [...] corrected by editing Spencer Grijalva MD MD, [facility] (), FACP 01/04/2022 1:31 PM [facility] * Dariela Walker MD - 01/04/2022 10:45 AM EDT Images from the original note were not included. [facility] Office: [phone] Mehdi Mcallister DO, Meliton Willard DO, Vicente [...] Vasquez CNP, Joanne Hameed CNP, Jazmine Huitron NEETU, Tono Braun, NEETU, Annie Quijano, KENYA, Brunilda Fuller, NEETU, Andria Rutherfrod, AIRFRAME AND POWERPLANT MECHANIC, Akila Franks, NEETU, Shivani Rascon, NEETU, Mayte Martinez, NEETU, Aliya Reyes PA-C, Esha Kumari, FURNITURE MOVER HELPER, Monica Levy, KENYA, Marifer Dunne, AIRFRAME AND POWERPLANT MECHANIC, Rosie Longoria, NEETU, Nohelia Morris, NEETU [facility] Name: Yoli Antunez Acct: [id number] Room: 0318/0318-01 IP Day: 4 Admit Date: 12/31/2021 11:15 PM PCP: Radha Price MD Code Status: Full Code Subjective: C/C: nausea,vomiting, fevers Interval History Status: improved. Patient indicates doing well no nausea vomiting. Continues to have left upper quadrant pain intermittently. No flatus or bowel movement yet . hemodynamically stable. Creatinine improved to 3.07 WBC 12.2 Brief History: 89-yfmj-ruw-year-old with prior history of CKD 3, hypertension, prior TIA, paroxysmal A. fib, aortic root aneurysm presented with right lower quadrant and flank pain, initially started on 12/28/2021 when he was evaluated at [facility]. Imaging suggested possible epiploic appendicitis versus [...] type 12/31/2021 Yes EMELIA (acute kidney injury) ([facility]) 01/01/2022 Yes CKD (chronic kidney disease) stage 3, GFR 30-59 ml/min ([facility]) 01/01/2022 Yes Non-intractable vomiting with nausea [...] by Darline Walden MD S/p egd at [facility] 08/2020 Plan: S/p cholecystectomy day2 -Continue Percocet [...] cholecystitis: Continue 5d course PO cipro/flagyl A.fib: julius resumed Ok d/c from surgery standpoint Chief [...] Out: 3300 [Urine:3300] LAB: CBC: Recent Labs 01/02/2252101/03/22 0547 WBC 12.2* 12.5* HGB 10.2* 10.3* HCT 30.4* 31.4* MCV 83.5 83.7 PLT 150 170 BMP: Recent Labs 01/02/22 0501/02/22 1716 01/03/22 0547 NA 141 142 138 K 4.6 5.0 4.8 CL 109* 108* 106 CO2 18* 20 16* BUN 63* 55* 53* CREATININE 4.02* 3.51* 3.44* GLUCOSE 106* 122* 138* COAGS: Recent Labs 01/02/2252101/03/22 0547 PROT 6.1* 6.7 RADIOLOGY: CXR: No [...] Progress Note PATIENT: YOLI ANTUNEZ CSN #: [id number] : 1955 ADMIT DATE: 12/31/2021 11:15 PM [...] RN CDS. Please call/text/PS with any questions; [phone]. Options provided: -- Sepsis, present on admission [...] Dariela Walker MD 01/03/2022 4:35 PM * Zulemabaldomero Amita Ford, BRENNA - AIRFRAME AND POWERPLANT MECHANIC - 01/03/2022 2:[address] [...] results for input(s): LABIRON, TIBC, IRON, FERRITIN, ELGHUHMH42, FOLATE, OCCULTBLD in the last 72 hours. [...] pancreatitis, unspecified complication status, unspecified pancreatitis type EMEILA (acute kidney injury) (HCC) CKD (chronic kidney [...] the care of your patient. Janet Ford, HUMAN PROJECTILE - AIRFRAME AND POWERPLANT MECHANIC [place], [place] Please note that this note was generated using a voice recognition dictation software. Although every effort was made to ensure the accuracy of this automated engine inspector, some errors in engine inspector may have occurred. Associated attestation - Juan David Marr MD - 01/04/2022 8:34 PM EDT GI Attending Attestation I have seen and examined the patient and reviewed the umaña elements of the history, physical exam findings and review of systems and discussed the care of this patient with Ms. Poolebaldomero NEETU Ford. I agree with the assessment, management plan and orders with Amarjit Liliana and primary team. Juan David Marr MD [facility] [place], [place] * Dariela Walker MD - 01/03/2022 9:30 AM EDT Images from the original note were not included. [facility] Office: [phone] Mehdi Mcallister DO, Meliton Willard DO, Vicente [...] Annie Quijano DNP, Brunilda Fuller CNP, Andria Rutherford CNP, Akila Franks CNP, Shivani Rascon, NEETU, Mayte Martinez, NEETU, Aliya Reyes PA-C, Esha Kumari, YAMILET, Monica Levy, KENYA, Marifer Dunne, NEETU, Rosie Longoria, NEETU, Nohelia Morris, NEETU [facility] Name: Yoli Antunez Acct: [id number] Room: [address] [place] [address]- IP Day: 3 Admit Date: 12/31/2021 11:15 PM [...] improved, lipase improved to 250 Brief History: 65-yjno-lbh-year-old with prior history of CKD 3, hypertension, prior TIA, paroxysmal A. fib, aortic root aneurysm presented with right lower quadrant and flank pain, initially started on 12/28/2021 when he was evaluated at [facility]. Imaging suggested possible epiploic appendicitis versus [...] 1.2 -- -- -- Chemistry: Recent Labs 01/01/2232501/01/22 0546 01/01/22 0727 01/01/22 1017 01/01/22 1207 [...] -- -- -- Recent Labs 01/01/2232501/01/22 0546 01/01/2272601/02/22 0522 01/03/22 0547 PROT 5.6* 5.5* 5.8* [...] results found for: POCPH, PHART, PH, POCPCO2, HYM4MQI, PCO2, POCPO2, PO2ART, PO2, POCHCO3, HFA6AWA, HCO3, NBEA, PBEA, BEART, BE, THGBART, THB, IQK0WEX, SJBP4ULN, R2MLJIQC, O2SAT, FIO2 Lab Results Component Value Date/Time [...] type 12/31/2021 Yes EMELIA (acute kidney injury) ([facility]) 01/01/2022 Yes CKD (chronic kidney disease) stage 3, GFR 30-59 ml/min ([facility]) 01/01/2022 Yes Non-intractable vomiting with nausea 01/01/2022 Yes Jaundice 01/01/2022 Yes Lactic acid acidosis 01/01/2022 Yes Hyperglycemia 01/01/2022 Yes Paroxysmal A-fib (HCC) 01/01/2022 Yes History of TIA (transient ischemic attack) 01/01/2022 Yes Apnea 01/01/2022 Yes History of kidney stones 01/01/2022 Yes History of peptic ulcer 01/01/2022 Yes Overview Signed 01/01/2022 2:21 AM by Darline Walden MD S/p egd at [facility] 08/2020 Plan: S/p cholecystectomy day1 -Was started [...] Out: 4320 [Urine:4300] LAB: CBC: Recent Labs 01/01/22 0701/02/22 0501/03/22 0547 WBC 16.8* 12.2* 12.5* HGB 10.0* 10.2* 10.3* HCT 30.0* 30.4* 31.4* MCV 84.7 83.5 83.7 PLT 157 150 170 BMP: Recent Labs 01/01/22 0727 01/02/22 0501/02/22 1716 NA 138 141 142 K [...] from the original note were not included. [facility] Office: [phone] Mehdi Mcallister DO, Meliton Willard DO, Vicente [...] Quijano DNP, Brunilda Fuller CNP, Andria Rutherford, AIRFRAME AND POWERPLANT MECHANIC, Akila Franks, AIRFRAME AND POWERPLANT MECHANIC, Shivani Rascon, AIRFRAME AND POWERPLANT MECHANIC, Mayte Martinez, AIRFRAME AND POWERPLANT MECHANIC, Aliya Reyes PA-C, Esha Kumari, FURNITURE MOVER HELPER, Mnoica Levy, KENYA, Marifer Dunne, NEETURosie CNP, Nohelia Morris CNP [facility] Name: Yoli Antunez Acct: [id number] Room: 0318/0318-01 Day: 2 Admit Date: 12/31/2021 11:15 PM [...] showed no hydronephrosis. Hemodynamically stable Brief History: 57-xhvr-ikx-year-old with prior history of CKD 3, hypertension, prior TIA, paroxysmal A. fib, aortic root aneurysm presented with right lower quadrant and flank pain, initially started on 12/28/2021 when he was evaluated at [facility]. Imaging suggested possible epiploic appendicitis versus [...] Hematology: Recent Labs 01/01/22 0546 01/01/22 0727 01/02/22521 WBC -- 16.8* 12.2* RBC -- 3.54* 3.64* HGB -- 10.0* 10.2* HCT -- 30.0* 30.4* MCV -- 84.7 83.5 MCH -- 28.2 28.0 MCHC -- 33.3 33.6 RDW -- 14.5* 14.4 PLT -- 157 150 MPV -- 11.0 10.3 INR 1.2 -- -- Chemistry: Recent Labs 01/01/22 0326 01/01/22 0546 01/01/22 0727 01/01/22 1017 01/01/22 1207 01/02/22 0522 NA 139 140 138 -- -- 141 [...] 0326 01/01/22 0546 01/01/22 0727 01/02/22 05 PROT 5.6* 5.5* 5.8* 6.1* LABALBU 3.2* [...] results found for: POCPH, PHART, PH, POCPCO2, MVH3VUO, PCO2, POCPO2, PO2ART, PO2, POCHCO3, GTQ3QEL, HCO3, NBEA, PBEA, BEART, BE, THGBART, THB, QSP9LNA, PCBI5UCK, I1AFMMAF, O2SAT, FIO2 Lab Results Component Value Date/Time [...] type 12/31/2021 Yes EMELIA (acute kidney injury) (HCC) 01/01/2022 Yes CKD (chronic kidney disease) stage 3, GFR 30-59 ml/min (HCC) 01/01/2022 Yes Non-intractable vomiting with nausea 01/01/2022 Yes Jaundice 01/01/2022 Yes Lactic acid acidosis 01/01/2022 Yes Hyperglycemia 01/01/2022 Yes Paroxysmal A-fib (HCC) 01/01/2022 Yes History of TIA (transient ischemic attack) 01/01/2022 Yes Apnea 01/01/2022 Yes History of kidney stones 01/01/2022 Yes History of peptic ulcer 01/01/2022 Yes Overview Signed 01/01/2022 2:21 AM by Darline Walden MD S/p egd at [facility] 08/2020 Plan: S/p cholecystectomy day0 - Increase [...] - 01/02/2022 9:29 AM EDT [facility] Gastroenterology Progress Note Yoli Antunez is [...] results for input(s): LABIRON, TIBC, IRON, FERRITIN, AIJQMOIW44, FOLATE, OCCULTBLD in the last 72 hours. BMP Recent Labs 01/01/22 0546 01/01/22 0701/02/22521 NA 140 138 141 K 4.5 4.4 4.6 CL 109* 107 109* CO2 18* 19* 18* BUN 59* 59* 63* CREATININE 3.86* 3.74* 4.02* GLUCOSE 106* 109* 106* CALCIUM 6.5* 6.5* 7.2* LFTS Recent Labs 01/01/22 0326 01/01/22 0546 01/01/2272601/02/22521 ALKPHOS 98 98 101 96 ALT [...] unspecified pancreatitis type EMELIA (acute kidney injury) ([facility]) CKD (chronic kidney disease) stage 3, GFR 30-59 ml/min ([facility]) Non-intractable vomiting with nausea Jaundice Lactic acid acidosis Hyperglycemia Paroxysmal A-fib ([facility]) History of TIA (transient ischemic attack) Apnea [...] Rachel Islas MD Internal medicine resident, PGY1 [place], [place] Please note that this note was generated using a voice recognition dictation software. Although every effort was made to ensure the accuracy of this automated engine inspector, some errors in engine inspector may have occurred. Associated attestation - Juan [...] Out: 4200 [Urine:4200] LAB: CBC: Recent Labs 01/01/22 0701/02/22521 WBC 16.8* 12.2* HGB 10.0* 10.2* HCT 30.0* 30.4* MCV 84.7 83.5 PLT 157 150 BMP: Recent Labs 01/01/22 0546 01/01/2272601/02/22521 NA 140 138 141 K 4.5 4.4 4.6 CL 109* 107 109* CO2 18* 19* 18* BUN 59* 59* 63* CREATININE 3.86* 3.74* 4.02* GLUCOSE 106* 109* 106* COAGS: Recent Labs 01/01/22 0546 01/01/2272601/02/22521 PROT 5.5* 5.8* 6.1* INR 1.2 -- [...] Leonel Matos MD * Sara Villalobos [facility] - 01/01/2022 10:23 AM EDT [...] original note were not included. Occupational Therapy [facility] Occupational Therapy Not Seen Note DATE: 01/01/2022 NAME: Yoli Antunez : 1955 Patient not seen this date for Occupational Therapy due to: Patient independent with ADLs and functional tasks with no acute OT needs. Will defer OT evaluationat this time. Please reorder OT if future needs arise. Next Scheduled Treatment: N/A * Aydee Smart RN - 01/01/2022 8:52 AM EDT Talked to [facility] cardiac and they said his loop recorder was put in November 09 and it is a [employer] device model m301 LUX-DX. MRI notified. documented in this encounterBON [facility] Work Phone: 1(580) 621-509009-16-2022 Hospital course Narrative* Dariela Walker MD - 01/05/2022 2:37 PM EDT Images from the original note were not included. [facility] Office: [phone] Mehdi Mcallister DO, Meliton Willard DO, Vicente [...] Braun, NEETU, Annie Quijano, KENYA, Brunilda Fuller, NEETU, Andria Rutherford, NEETU, Akila Franks CNP, Shivani Rascon CNP, Mayte Martinez CNP, Aliya Reyes PA-C, Esha Kumari, FURNITURE MOVER HELPER, Monica Levy, DNP, Marifer Dunne, AIRFRAME AND POWERPLANT MECHANIC, Rosie Longoria, AIRFRAME AND POWERPLANT MECHANIC, Nohelia Morris, AIRFRAME AND POWERPLANT MECHANIC [facility] Dis[facility] Summary Patient ID: Yoli Antunez : 1955 ACCOUNT: [id number] Patient's PCP: Radha Price MD Admit Date: [...] Discharged Condition: good Hospital Stay: Hospital Course: 1-dfte[age]fqh-year-old with prior history of CKD 3, hypertension, prior TIA, paroxysmal A. fib, aortic root aneurysm presented with right lower quadrant and flank pain, initially started on 12/28/2021 when he was evaluated at [facility]. Imaging suggested possible epiploic appendicitis versus [...] Discharge plan: Disposition: Home Physician Follow Up: [facility] [address] [facility] [address] [facility] [address] Schedule an appointment as soon as possible for a visit on 01/16/2022 For wound re-check post op from your Lap Ivy Campos MD [address] [facility] [address] Follow up in 1 month(s) Diet: regular [...] Your Medications These medications were sent to [facility] [place], [place] - [address] - P [phone] - F [phone] [place], [place] [address] [address] ciprofloxacin 500 MG tablet dilTIAZem 120 MG [...] in this patient'scare. documented in this encounterBON [facility] [employer] Phone: 1(783) 982-358909-14-2022 Hospital Discharge instructions* Discharge Instructions* Sudheer Foote [...] be called to the nurse line at [phone] and please leave a message. * Attachments The following attachments cannot be sent through Care Everywhere. * Pancreatitis: Acute: General Info ([place]) documented in this encounterBON [employer] Work Phone: 1(301) 504-277207-28-2022 NotePROCEDURE: XR FOOT LT MIN 3 VIEWS [...] Electronically authenticated by: DONNELL DU Date: 2021-11-16 08:26[facility]06-13-2022 Evaluation note* Encounter Date Diagnosis Assessment Notes [...] to call the office if symptoms return [employer] Other 05-11-2022 Evaluation note* Encounter Date Diagnosis [...] - G89.29) Continue with current treatment plan [employer] Other 04-14-2022 Evaluation note* Encounter Date Diagnosis [...] - G89.29) Continue with current treatment plan [employer] Other 06-01-2020 History of Present illness Narrative* [...] for complaint except as noted in HPI. [facility] Work Phone: 1(250) 736-327706-01-2020 History of Present illness Narrative* Dysphagia with [...] for complaint except as noted in HPI. [employer] Work Phone: 1(654) 418-959806-01-2020 History of Present illness Narrative* 67 year [...] for complaint except as noted in HPI. [facility] Work Phone: 1(888) 712-721306-01-2020 History of Present illness Narrative* Dysphagia with [...] for complaint except as noted in HPI. -[facility] [address] Work Phone: 1(936) 823-316301-30-2019 History and physical note Author Charlene [facility] April 16, 2023 10:45am Note Date/Time April 16, 2023 10:45am [facility] [address] [place] [address] Gastroenterology H&P Signed Patient: Yoli Antunez Jr MR#: [id number] : 1955 Acct:[id number] Age/Sex: 67 / M Adm Date: 3 Loc: Room: Type: [facility] Attending Dr: Charlene Soria MD Copies [...] <Electronically signed by Charlene Soria MD> 04/16/23 104 [facility] Work Phone: Evaluation noteNo [employer] Other Evaluation note* Diagnosis Gall stone pancreatitis- Primary Acute pancreatitis Acute pancreatitis, unspecified complication status, unspecified pancreatitis type EMELIA (acute kidney injury) ([facility]) Acute kidney failure, unspecified CKD (chronic kidney disease) stage 3, GFR 30-59 ml/min ([facility]) Chronic kidney disease, Stage III (moderate) Non-intractable vomiting with nausea Jaundice Jaundice, unspecified, not of Lactic acid acidosis Acidosis Hyperglycemia Other abnormal glucose Paroxysmal A-fib ([facility]) Atrial fibrillation History of TIA (transient ischemic attack) Transient ischemic attack (TIA), and cerebral infarction without residual deficits History of peptic ulcer Personal history of peptic ulcer disease Apnea History of kidney stones Personal history of urinary calculi Metabolic acidosis Acidosis documented in this encounter [facility] Work Phone: evaluation note* Diagnosis Chronic migraine without aura, intractable, without status migrainosus- Primary Aphasia Other specified transient cerebral ischemias documented [facility] [place] Diagnosis Chronic migraine without aura, with intractable migraine, so stated, with status migrainosus- Primary documented [facility] this encounter [facility] [place] [facility]* Diagnosis Chronic migraine without aura, with intractable migraine, so stated, with status migrainosus- Primary documented in this encounter [facility] note* Diagnosis Autonomic dysfunction- Primary Unspecified disorder of autonomic nervous system Dizzy spells Dizziness and giddiness documented in this encounter [facility] note* Diagnosis Diarrhea, unspecified type- Primary Left lower quadrant abdominal pain documented in this encounter [facility] Work Phone: Evaluation note* Diagnosis Disturbance of skin sensation- Primary [facility] [place] [facility]* Diagnosis Left lower quadrant abdominal pain documented in this encounter [facility] Work Phone: Evaluation note* Diagnosis Dysphagia, [...] disease Chronic kidney disease, stage 3 unspecified ([facility]/HCC) Chronic atrial fibrillation, unspecified (CMS/HCC) Obstructive sleep apnea (adult) (pediatric) 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, unspecified [facility] (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 of antithrombotics/antiplatelets [facility] (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 of aspirin Personal history of transient ischemic attack (TIA), and cerebral infarction without residual deficits Personal history of nicotine dependence Allergy status to penicillin documented in this encounter [facility] Work Phone: Evaluation note* Diagnosis Obstructive [...] joint, bilateral 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 Allergy status to penicillin Allergy status to other antibiotic agents documented in this encounter [facility] Work Phone: Evaluation noteNo assessment information available [facility] Work Phone: Evaluation note* Diagnosis Orthostatic hypotension- Primary [place]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) documented in this encounter [facility] Narrative - Reported* Type Description Date [...] Hospitalization History see above Hospitalization History cardiac [employer] Other History of Present illness Narrative* Patient [...] and contact clinician with any concerns. [facility] [address] [place] Work Phone: History of Present illness Narrative* Mr. ANTUNEZ , 1955, referred for an initial consultation with me but established with this practice, with a long history of waking up feeling unrefreshed, excessive daytime fatigue. * [place] Sleepiness Scale Score is 16 /24. Fatigue [...] / 20 * Nasal Obstruction VAS- 0/10 [id number] Work Phone: Hospital Discharge instructions [...] -Follow up pathology -Follow up in the [facility] Work Phone: Summary Purpose Family [...] Not Specified Malignant neoplasm of lung Unknown Relationship Condition Age at Onset Recorded Date/T tavia father Abdominal aortic aneurysm (AAA) Unknown Malignant neoplasm of lung Unknown Not Specified Malignant neoplasm of lung Unknown father Unknown Family history of lung cancer Unknown Malignant neoplasm Unknown Heart disease Unknown Hypertension Unknown Not Specified History of stroke Unknown Unknown Advance Directives No Advanced Directives Records FoundDocuments on File Type Date Recorded 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 20g in R forearm. Pt stating headache5-09/29. Pt placed on tele and educated on calling for nurse for OOB. Fluids started per protocol. Call light within reach. Will continue to monitor. documented in this encounter Reason for Referral Specialty Diagnoses / Procedures Referred By Contac t Referred To Contact Radiology Diagnoses Left lower quadrant abdominal pain Procedures CT abdomen pelvis w IV contrast Yossi Chen MD [address] [facility] Medical [facility] [address] [place] [address] Referral ID Status Reason Start Date Expiration Date Visits Requested Visits Authorized [id number] Authorized Perform Procedure 3 07/30/2023 1 1 Specialty Diagnoses / Procedures Referred By Contac t Referred To Contact Neurology Diagnoses Autonomic dysfunction Dizzy spells Procedures CONSULT TO NEUROLOGY OFFICE/OUTPATIENT NEW HIGH MDM 60-74 MINUTES Sarbjit Richardson, HUMAN PROJECTILE.AIRFRAME AND POWERPLANT MECHANIC [address] [place] [address] Referral ID Status Reason Start Date Expiration Date Visits Requested Visits Authorized [id number] Authorized PCP Requested Referral 12/31/2022 12/31/2023 1 1 Specialty Diagnoses / Procedures Referred By Contac t Referred To Contact MR IMAGING Diagnoses Chronic migraine without aura, intractable, without status migrainosus Aphasia Other specified transient cerebral ischemias Procedures MRV BRAIN WO IVCON MRA, HEAD W/O CONTRAST Sarbjit Richardson, HUMAN PROJECTILE.AIRFRAME AND POWERPLANT MECHANIC [address] [place] [address] Mr Imaging Referral ID Status Reason Start Date Expiration Date Visits Requested Visits Authorized [id number] Pending Review Auto-Generat ed Referral 05/31/2022 06/30/2023 1 1 Specialty Diagnoses / Procedures Referred By Yeny thurston Referred To Contact MR IMAGING Diagnoses Chronic migraine without aura, intractable, without status migrainosus Aphasia Other specified transient cerebral ischemias Procedures MRA BRAIN WO IVCON MRA, HEAD W/O CONTRAST Sarbjit Richardson, HUMAN PROJECTILE.AIRFRAME AND POWERPLANT MECHANIC [address] [place] [address] Mr Imaging Referral ID Status Reason Start Date Expiration Date Visits Requested Visits Authorized [id number] Pending Review Auto-Generat ed Referral 05/31/2022 06/30/2023 [...] 30 Minutes, ONCE, 1 dose, On Sis 07/26/22 at 1330, EXP: Administer with 0.2 [...] and Reason for Visit Chief Complaint Diarrhea Chief Complaint Diarrhea/Hiatal Misael is//Ref Hallemaxradha Diarrhea R10.9 R19.7 Additional Source Comments (unrecognized sect ion and [...] section and content) DATE CREATED AUTHOR 05/02/2018 [facility] DATE CREATED AUTHOR AUTHOR'S ORGANIZ ATION 03/12/2020 [facility] DATE CREATED AUTHOR AUTHOR'S ORGANIZ ATION 10/28/2020 [facility] DATE CREATED AUTHOR AUTHOR'S ORGANIZ ATION 05/25/2021 [facility] DATE CREATED AUTHOR AUTHOR'S ORGANIZ ATION 12/23/2021 [facility] DATE CREATED AUTHOR AUTHOR'S ORGANIZ ATION 01/17/2022 [facility] DATE CREATED AUTHOR AUTHOR'S ORGANIZ ATION 04/18/2022 [facility] dical Specialist DATE CREATED AUTHOR AUTHOR'S ORGANIZ ATION 06/07/2022 [facility] pital DATE CREATED AUTHOR AUTHOR'S ORGANIZ ATION 08/28/2022 [facility] DATE CREATED AUTHOR AUTHOR'S ORGANIZ ATION 10/26/2022 [facility] DATE CREATED AUTHOR AUTHOR'S ORGANIZ ATION 12/14/2022 [facility] ical [facility] DATE CREATED AUTHOR AUTHOR'S ORGANIZ ATION 12/14/2022 [facility] DATE CREATED AUTHOR AUTHOR'S ORGANIZ ATION 12/18/2022 [facility] DATE CREATED AUTHOR AUTHOR'S ORGANIZ ATION 02/02/[address] [facility] DATE CREATED AUTHOR AUTHOR'S ORGANIZ ATION 02/06/2023 [place] DATE CREATED AUTHOR AUTHOR'S ORGANIZ ATION 02/09/2023 [facility] DATE CREATED AUTHOR AUTHOR'S ORGANIZ ATION 06/02/2023 [facility] DATE CREATED AUTHOR AUTHOR'S ORGANIZ ATION 06/11/2023 [facility] DATE CREATED AUTHOR AUTHOR'S ORGANIZ ATION 07/13/2023 [facility] dical Specialists EPIC DATE CREATED AUTHOR AUTHOR'S ORGANIZ ATION 09/28/2023 [facility] Reason for Visit (unrecogniz ed section and content) Reason Comments Infusion Headache Specialty Diagnoses / Procedures Referred By Contac t Referred To Contact Diagnoses Chronic migraine without aura, with intractable migraine, so stated, with status migrainosus Sarbjit Richardson, HUMAN PROJECTILE.AIRFRAME AND POWERPLANT MECHANIC [address] [place] [address] Neur Headache Main [address] [place] [address] Referral ID Status Reason Start Date Expiration Date V isits Requested Visits Authorized [id number] Authorized 05/31/2022 08/29/2022 99 99 Status Reason Specialty Diagnoses / Procedures Referred By Contact Referred To Contact Pending Review Infusion Therapy Diagnoses Migraine, unspecified, intractable, without status migrainosus Procedures IN INJ MAGNESIUM SULFATE IN LIDOCAINE INJECTION IN DEXAMETHASONE SODIUM PHOS IN DRUGS UNCLASSIFIED INJECTION Mayelin Wolff MD [address] [place] [address] [facility] [address] [place] [address] Reason Comments Headache Reason Comments Received Outside Medical Records Reason Comments Results [facility] Reason Comments Follow-up Diarrhea Since hiatal hernia surgery. Reason Comments Results [facility] Specialty Diagnoses / Procedures Referred By Yeny t Referred To Contact Radiology Diagnoses Left lower quadrant abdominal pain Procedures CT abdomen pelvis w IV contrast Yossi Chen MD [address] [facility] [address], [address] [place] [address] Referral ID Status Reason Start Date Expiration Date Visits Requested Visits Authorized [id number] Authorized Perform Procedure 3 07/30/2023 1 1 [...] Soco Hdez RN)2033 (Given - Provider: Agata Garcia, CARLOS) 0853 (Given - Provider: Patty Evans)2099 (Due) ciprofloxacin (CIPRO) tablet 500 mg (CANCELED) [...] absorption do not give by J tube. 08 (Given - Provider: Roly Delong RN) 08 (Given - Provider: Soco Hdez RN) 0853 [...] absorption do not give by J tube. 2099 (Due) dilTIAZem (CARDIZEM CD) extended release capsule [...] Delong RN) 2032 (Given - Provider: Agata Garcia RN) 2099 (Due - Provider: Soco Hdez RN) [...] 2027 (Given - Provider: Ritu Sosa RN) 0429 (Given - Provider: Ritu Sosa RN)1444 (Given - Provider: Soco Hdez RN)220 (Given - Provider: Agata Garcia, CARLOS) 0537 (Given - Provider: Agata Garcia, CARLOS)1355 (Given - Provider: Patty Evans)2200 (Due) pramipexole (MIRAPEX) tablet 2 mg 2 mg, Oral, NIGHTLY, First dose (after last modification) on Sat01/04/22 at 2100, Until Discontinued, Give 2-3 hours before bedtime. 2100 (Given - Provider: Ritu Sosa RN) 2032 (Given - Provider: Agata Garcia, CARLOS) 2099 (Due) sodium chloride flush 0.9 % [...] Contraindicated)2028 (Given - Provider: Ritu Sosa RN) 921 (Not Given - Provider: Soco Hdez RN - Reason: IV Fluid Infusing)2032 (Not Given - Provider: Agata Garcia RN - Reason: IV Fluid Infusing) 09 (Not Given - Provider: Soco Hdez RN - Reason: IV Fluid Infusing)2100 (Due) Continuous Medication Order 01/03/2022 01/04/2022 01/05/2022 0.9 % sodium chloride infusion (CANCELED) IntraVENous, at 100 mL/hr, CONTINUOUS, Starting on Sat01/04/22 at 1315 1327 (New Bag - Provider: [...]
Care Teams (unrecognized sec tion and content) Machine I Engraver Relationship Specialty Start Date End Date Radha Price MD [address] [place], [place] [id number] PCP - General Family Medicine 10/01/17 Machine I Engraver Relationship Specialty Start Date End Date Radha Burris MD [address] [place], [place] [phone] PCP - General Internal Medicine 01/14/20 Esther Grey, DO [address] [facility] [place] [address] Physician Electrophysiology 01/26/20 Machine I Engraver Relationship Specialty Start Date End Date Radha Burris [address] [place] [phone] PCP - General Family Medicine 10/09/17 Elian Ceballos MD [address] [place] [address] Primary Staff Physician Cardiology 12/01/20 Herminia Roland MD [address] [place] [address] Primary Staff Physician Cardiology 02/01/21 Machine I Engraver Relationship Specialty Start Date End Date Radha Burris [address] [place] [phone] PCP - General Family Medicine 10/09/17 Elian Ceballos MD [address] [place] [address] Primary Staff Physician Cardiology 12/01/20 Herminia Roland MD [address] [place] [address] Primary Staff Physician Cardiology 02/01/21 Machine I Engraver Relationship Specialty Start Date End Date Radha Burris [address] [place] [phone] PCP - General Family Medicine 10/09/17 Elian Ceballos MD [address] [place] [address] Primary Staff Physician Cardiology 12/01/20 Herminia Roland MD [address] [place] [address] Primary Staff Physician Cardiology 02/01/21 Machine I Engraver Relationship Specialty Start Date End Date Radha Burris [address] [place] [phone] PCP - General Family Medicine 10/09/17 Elian Ceballos MD [address] [place] [address] Primary Staff Physician Cardiology 12/01/20 Herminia Roland MD [address] [facility] [place] [address] Primary Staff Physician Cardiology 02/01/21 Machine I Engraver Relationship Specialty Start Date End Date Radha Burris [address] [place] [facility] [place] [phone] PCP - General Family Medicine 10/09/17 Elian Ceballos MD [address] [place] [address] Primary Staff Physician Cardiology 12/01/20 Herminia Roland MD [address] [place] [address] Primary Staff Physician Cardiology 02/01/21 Machine I Engraver Relationship Specialty Start Date End Date Radha [address] [place] [phone] PCP - General Family Medicine 10/09/17 Elian Ceballos MD [address] [place] [address] Primary Staff Physician Cardiology 12/01/20 Herminia Roland MD [address] [place] [address] Primary Staff Physician Cardiology 02/01/21 Machine I Engraver Relationship Specialty Start Date End Date Radha Burris [address] [place] [phone] PCP - General Family Medicine 10/09/17 Elian Ceballos MD [address] [place] [address] Primary Staff Physician Cardiology 12/01/20 Herminia Roland MD [address] [place] [address] Primary Staff Physician Cardiology 02/01/21 Machine I Engraver Relationship Specialty Start Date End Date Radha Burris [address] [place] [place] [phone] PCP - General Family Medicine 10/09/17 Elian Ceballos MD [address] [place] [address] Primary Staff Physician Cardiology 12/01/20 Herminia Roland MD [address] [place] [address] Primary Staff Physician Cardiology 02/01/21 Machine I Engraver Relationship Specialty Start Date End Date Radha Burris [address] [place] [address] PCP - General Family Medicine 10/09/17 Elian Ceballos MD [address] [place] [address] Primary Staff Physician Cardiology 12/01/20 Herminia Roland MD [address] [place] [address] Primary Staff Physician Cardiology 02/01/21 Machine I Engraver Relationship Specialty Start Date End Date Radha Burris [address] [place] [phone] PCP - General Family Medicine 10/09/17 Elian Ceballos MD [address] [place] [address] Primary Staff Physician Cardiology 12/01/20 Herminia Roland MD [address] [place] [address] Primary Staff Physician Cardiology 02/01/21 Machine I Engraver Relationship Specialty Start Date End Date Radha Burris [address] [place] [address] PCP - General Family Medicine 10/09/17 Elian Ceballos MD [address] [facility] [place] [place] [address] Primary Staff Physician Cardiology 12/01/20 Herminia Roland MD [address] [place] [address] Primary Staff Physician Cardiology 02/01/21 Machine I Engraver Relationship Specialty Start Date End Date Radha Burris MD [address] [phone] PCP - General 03/22/20 Machine I Engraver Relationship Specialty Start Date End Date Radha Burris [address] [place] [address] PCP - General Family Medicine 10/09/17 Elian Ceballos MD [address] [place] [address] Primary Staff Physician Cardiology 12/01/20 Herminia Roland MD [address] [place] [address] Primary Staff Physician Cardiology 02/01/21 Machine I Engraver Relationship Specialty Start Date End Date Radha Burris [address] [place] [address] PCP - General Family Medicine 10/09/17 Elian Ceballos MD [address] [place], [place] [id number] Primary Staff Physician Cardiology 12/01/20 Herminia Roland MD [address] [place] [address] Primary Staff Physician Cardiology 02/01/21 Machine I Engraver Relationship Specialty Start Date End Date Radha Burris MD [address] [place] [address] PCP - General 03/22/20 Machine I Engraver Relationship Specialty Start Date End Date Radha Burris MD [address] [place] [address] PCP - General 03/22/20 Machine I Engraver Relationship Specialty Start Date End Date Radha Burris MD [address] [place] [address] PCP - General 03/22/20 Team Status: Active Member Role Status Dates Radha Burris MD Primary Care Provide r Active Team Status: Inactive Member Role Status Dates Radha Burris MD Primary Care Provide r Active Charlene Soria MD Attending Provider Active Machine I Engraver Relationship Specialty Start Date End Date Radha Burris MD [address] [place] [address] PCP - General Internal Medicine 01/14/20 Matilda DO Esther [address] [place] [address] [place] [address] Physician Electrophysiology 01/26/20 Machine I Engraver Relationship Specialty Start Date End Date Radha Burris [address] [place] [phone] PCP - General Family Medicine 10/09/17 Elian Ceballos MD [address] [place] [address] Primary Staff Physician Cardiology 12/01/20 Herminia Roland MD [address] [place] [address] Primary Staff Physician Cardiology 02/01/21 Machine I Engraver Relationship Specialty Start Date End Date Radha Burris MD [address] [place], [place] [phone] PCP - ACO Reach 09/13/22 Radha Burris MD [address] [place] [address] PCP - General Family Medicine 09/20/22 Team Status: Inactive Member Role Status Dates Charlene Soria MD Attending Provider Active Start: March 20, 2023 End: March 20, 2023 Team Status: Inactive Member Role Status Dates Radha Burris MD Primary Care Provider Active Start: April 162022 End: April 16, 2023 Charlene Soria MD Attending Provider Active Start: April 16, 2023 End: April 16, 2023 Team Status: Inactive Member Role Status Dates Radha Burris MD Primary Care Provider Active Start: June 102023 End: June 10, 2023 Charlene Soria MD Attending Provider Active Start: June 10, 2023 End: June 10, 2023 Machine I Engraver Relationship Specialty Start Date End Date Radha Burris MD [address] [place] [address] PCP - General Internal Medicine 01/14/20 Esther Grey DO [address] [place] [address] [place] [address] Physician Electrophysiology 01/26/20 Source Comments (unrecognize d section and content) In the event this informatio n is protected by the Federal Confidentiality of Alcohol and Drug Abuse Patient Records regulations: The Federal rules restrict any use of the information to criminally investigate or prosecute any alcohol or drug abuse patient.[facility] the event this information is protected by the Federal Confidentiality of Alcohol and Drug Abuse Patient Records regulations: The Federal rules restrict any use of the information to criminally investigate or prosecute any alcohol or drug abuse patient.[facility] Hospital[facility] the event this information is protected by the Federal Confidentiality of Alcohol and Drug Abuse Patient Records regulations: The Federal rules restrict any use of the information to criminally investigate or prosecute any alcohol or drug abuse patient.[facility] Hospital[facility] the event this information is protected by the Federal Confidentiality of Alcohol and Drug Abuse Patient Records regulations: The Federal rules restrict any use of the information to criminally investigate or prosecute any alcohol or drug abuse patient.[facility] Hospital[facility] the event this information is protected by the Federal Confidentiality of Alcohol and Drug Abuse Patient Records regulations: The Federal rules restrict any use of the information to criminally investigate or prosecute any alcohol or drug abuse patient.[facility] Hospital[facility] the event this information is protected by the Federal Confidentiality of Alcohol and Drug Abuse Patient Records regulations: The Federal rules restrict any use of the information to criminally investigate or prosecute any alcohol or drug abuse patient.[facility] Hospital[facility] the event this information is protected by the Federal Confidentiality of Alcohol and Drug Abuse Patient Records regulations: The Federal rules restrict any use of the information to criminally investigate or prosecute any alcohol or drug abuse patient.[facility] Hospital[facility] the event this information is protected by the Federal Confidentiality of Alcohol and Drug Abuse Patient Records regulations: The Federal rules restrict any use of the information to criminally investigate or prosecute any alcohol or drug abuse patient.[facility] Hospital[facility] the event this information is protected by the Federal Confidentiality of Alcohol and Drug Abuse Patient Records regulations: The Federal rules restrict any use of the information to criminally investigate or prosecute any alcohol or drug abuse patient.[facility] Hospital[facility] the event this information is protected by the Federal Confidentiality of Alcohol and Drug Abuse Patient Records regulations: The Federal rules restrict any use of the information to criminally investigate or prosecute any alcohol or drug abuse patient.[facility] Hospital[facility] the event this information is protected by the Federal Confidentiality of Alcohol and Drug Abuse Patient Records regulations: The Federal rules restrict any use of the information to criminally investigate or prosecute any alcohol or drug abuse patient.[facility] Hospital[facility] the event this information is protected by the Federal Confidentiality of Alcohol and Drug Abuse Patient Records regulations: The Federal rules restrict any use of the information to criminally investigate or prosecute any alcohol or drug abuse patient.[facility] Hospital[facility] the event this information is protected by the Federal Confidentiality of Alcohol and Drug Abuse Patient Records regulations: The Federal rules restrict any use of the information to criminally investigate or prosecute any alcohol or drug abuse patient.[facility] Hospital[facility] the event this information is protected by the Federal Confidentiality of Alcohol and Drug Abuse Patient Records regulations: The Federal rules restrict any use of the information to criminally investigate or prosecute any alcohol or drug abuse patient.[facility] HospitalIn the event this information is protected by the Federal Confidentiality of Alcohol and Drug Abuse Patient Records regulations: The Federal rules restrict any use of the information to criminally investigate or prosecute any alcohol or drug abuse patient.[facility] HospitalIn the event this information is protected by the Federal Confidentiality of Alcohol and Drug Abuse Patient Records regulations: The Federal rules restrict any use of the information to criminally investigate or prosecute any alcohol or drug abuse patient.[facility] FOR RECORDS PERTAINING TO PATIENTS WHO [...] THE PRIMARY CLINICAL RECORDS. [facility] [employer] [facility]. provides no warranty or guarantee of the accuracy or completeness of information in this document.
[2023-10-05 08:59] LABS: Basophils Absolute Auto 0.1 10^3/uL (0.0-0.1); Basophils Percent Auto 0.5 % (0.2-2.0); Eosinophils Absolute Auto 0.2 10^3/uL (0.0-0.7); Eosinophils Percent Auto 1.5 % (0.9-7.0); Hematocrit 42.6 % (42.0-54.0); Hemoglobin 13.4 g/dL (14.0-18.0); Immature Granulocytes Abs Auto 0.02 10^3/uL (0.00-0.03); Immature Granulocytes Pct Auto 0.2 % (0.0-0.5); Lymphocytes Percent Auto 20.1 % (20.5-60.0); Mean Corpuscular HGB Conc 31.5 g/dL (29.9-35.2); Mean Corpuscular Hemoglobin 26.9 pg (25.9-34.0); Mean Corpuscular Volume 85.5 fL (80.0-94.0); Mean Platelet Volume 9.8 fL (9.5-13.5); Monocytes Absolute Auto 0.8 10^3/uL (0.3-0.8); Monocytes Percent Auto 8.1 % (1.7-12.0); Neutrophils Absolute Auto 6.9 10^3/uL (1.4-6.5); Neutrophils Percent Auto 69.6 % (43.0-75.0); Platelet Count 193 10^3/uL (150-450); Red Blood Count 4.98 10^6/uL (4.70-6.10); Red Cell Distribution Width 14.2 % (11.0-15.0); White Blood Count 9.9 10^3/uL (4.0-11.0)
[2023-10-05 09:12] LABS: INR 1.04; Partial Thromboplastin Time 33.3 sec (22.3-36.2)
[2023-10-05 09:23] LABS: Alanine Aminotransferase 29 U/L (16-63); Albumin Level 3.9 g/dL (3.4-5.0); Alkaline Phosphatase 74 U/L (46-116); Anion Gap 19.1; Aspartate Amino Transferase 20 U/L (15-37); BUN Creatinine Ratio 17.3; Bilirubin Total 0.9 mg/dL (0.2-1.0); Calcium 7.6 mg/dL (8.5-10.1); Carbon Dioxide 22.6 mmol/L (21.0-32.0); Chloride 105 mmol/L (98-107); Estimated GFR (African America >60 (>=60); Estimated GFR (Non-African Ame 51 (>=60); Globulin 3.9 g/dL; Glucose 151 mg/dL (74-106); Potassium 3.7 mmol/L (3.5-5.1); Sodium 143 mmol/L (136-145); Total Protein 7.8 g/dL (6.4-8.2); Troponin I High Sensitivity 4.5 pg/mL (4.0-76.1)
[2023-10-05 10:44] LABS: Troponin I High Sensitivity 4.5 pg/mL (4.0-76.1)
== END 2023-10-05 11:15 | disposition home or self-care (01) ==
PROVIDERS: Emergency Provider Student in an Organized Health Care Education/Training Program; PCP Family Medicine
DX: R07.9 Chest pain, unspecified (principal); L03.012 Cellulitis of left finger; Z87.891 Personal history of nicotine dependence
CPT/HCPCS: 36415; 71046; 73130; 80053; 84484; 85025; 85610; 85730; 93005; 99285

== ENCOUNTER 2024-01-25 07:23 | Inpatient (IN) | payer MEDICARE, OTHER, SELFPAY ==
[2024-01-25] VITALS (56 sets, daily range): BP systolic 87–140; BP diastolic 53–103; PULSE 75–127; TEMP 36.5–36.6; O2SAT 93–99; BMI 26.6
--- OUTSIDE RECORDS SUMMARY | 2024-01-25 07:33 | XMS_ITS | CCD ---
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 Role Phone CLAIR MATT Unavailable Unavailable RADHA BURRIS Unavailable Unavailable Chris Luong Unavailable Unavailable Fatuma, Ritu Unavailable Unavailable Terrell Her Unavailable Unavailable Terrell Her Unavailable Unavailable Phillip Escobar Unavailable Unavailable Warren Burrisssica Unavailable Unavailable RADHA PRICE Primary Care Un available MAYELIN WOLFF Referring Unavailable Radha Price [facility] PROVIDER, UNKNOWN Attending Unavailable PROVIDER, UNKNOWN [...] Primary Care Unavailable JANET FORD Consulting Unavailable EVELIO DARIELA Admitting Unavailable SN EVELIOEHA Attending Unavailable MINDY SEVERINO Referring Unavailable RADHA PRICE Primary Care Un available BHAVESH GUNTER Consulting Unavailable CANMARIO ARCE IV Consulting Unavaila DUSTY Casillas Consulting Unavailable Radha Price MD L Primary Care Pr ovider Radha Burris MD Primary Care Provider Esther Grey DO Unavailable Radha Burris Primary Care Provider [phone] Tucker VAZQUEZ, Elian Caballero Unavailable Herminia Roland [...] JEFFREY Admitting Unavailable BENITA JEFFREY Consulting Unavailable LZU ELENA EMERY Consulting Unavailable FATUMA, DR OCONNOR [...] Primary Care Unavailable Fatuma, Radha R Unavailable [phone] Unavailable Unavailable Fatuma, Dr. Radha Mena [...] nikki Diego, Dr. Beth Hedrick Attending Unavai lable [...] Dr. Radha Mena Primary Care Unavail able Klilian, Dr. Ruby Maguire Admitting Unavailab le Daily, [...] Mena Referring Unavail able Tucker VAZQUEZ, Elian K Unavailable Luan VAZQUEZ, Herminia H Unavailable Radha Burris MD Primary Care Provider YOSSI CHEN Attending Unavailable RADHA BURRIS Primary Care Unavailable RADHA BURRIS Primary Care Unavailable RADHA BURRIS Primary Care Unavailable Asaad, Imad Unavailable MD Radha Rapp Primary Care Pr ovider MD Charlene Sroia Attending Provider Radha Burris MD Primary Care Provider Matilda ALARCON, Esther Unavailable RADHA BURRIS Primary Care Unavailable SARBJIT [...] Unavailable Radha Burris MD Primary Care Provider Radha Rapp Primary Care Un available Asaad, Imad Admitting Unavailable Asaad, Imad Attending Unavailable Radha Rapp Primary Care Un available Asaad, Imad Admitting Unavailable Asaad, Imad Attending Unavailable Kargabriel DO, Esther Unavailable MAME, SHUKRI Attending Unavailable MAME, SHUKRI Admitting Unavailable YANDEL SHEN Attending Unavailable MAME, SHUKRI Referring Unavailable MAME, SHUKRI Referring Unavailable MAME, SHUKRI Referring Unavailable KARABIN, JACKIE Attending Unavailable MAME, SHUKRI Referring Unavailable MAME, SHUKRI Referring Unavailable BARAZI, ELYSSA Attending Unavailable MAME, SHUKRI Attending Unavailable VITALIY, YANDEL Attending Unavailable ALGHOTHANI, COLLIN Attending Unavailable BARAZI, ELYSSA Attending Unavailable TOFLINSKI, JAYLYN Referring Unavailable MAME, SHUKRI Referring Unavailable MAME, SHUKRI Referring Unavailable MAME, SHUKRI Attending Unavailable KARABIN, JACKIE Attending Unavailable VITALIY, YANDEL Attending Unavailable MAME, SHUKRI Referring Unavailable ALGHOTHANI, PHILLAMAPatrick Attending Unavailable MAME, SHUKRI Attending Unavailable MAME, SHUKRI Referring Unavailable ELTAHAWY, EHAB Referring Unavailable TOFLINSKI, JAYLYN Referring Unavailable TOFLINSKI, JAYLYN Referring Unavailable ELTAHAWY, EHAB Attending Unavailable ELTAHAWY, EHAB Admitting Unavailable ELTAHAWY, EHAB Attending Unavailable TOFLINSKI, JAYLYN Attending Unavailable SAYON, YOSSI Referring Unavailable RADHA BURRIS Primary Care Unavailable Radha Burris Primary Care Provider MATIAS JUAREZ Attending Unavailab MARTÍN Garcia Attending Unavailable HACKENSEKOU, ELEONORA Levi Referring Unavailab MAYELIN Wiseman Attending Unavailable FATUMA, RADHA Attending Unavailable HACKSAM, ELEONORA Levi Attending Unavailab nikki BURRIS, RADHA Attending Unavailable KAMPFER, SHIVANI Attending Unavailable MATIAS JUAREZ Attending Unavailab Donn Arndt MD Unavailable Unavailable Allergies Allergy Classification Reported Allergen(s) Allergy Type Date of Onset Reaction(s) Facility (20 sources) Amoxicillin; Translations: [amoxicillin] Drug Allergy 01-31-20 23 Unknown [facility] (20 sources) Penicillins; Translations: [Penicillins] drug allergy 09-13-19 Rash The [facility] Repository (14 sources) Penicillin; Translations: [PENICILLIN] Drug Allergy 06-22-19 22 Unknown [facility] (1 source) Penicillin Drug Allergy 11-05-19 The [facility] Repository (20 sources) dofetilide; Translations: [Tikosyn CAPS] Drug Allergy 08-25-19 22 Other: See Comments, Unknown [facility] (4 sources) Penicillins Propensity to adverse reactions to drug 09-13-19 Unknown, Other [facility] Work Phone: (20 sources) Penicillins Drug Allergy 09-13-19 Unknown [facility] Work Phone: (1 source) dofetilide Drug Allergy 06-04-19 23 [facility] Repository (1 source) Penicillins Drug allergy (disorder) 07-29-19 15 [facility] Repository (6 sources) Vancomycin; Translations: [VANCOMYCIN] Drug Allergy 03-07-20 22 Hives [facility] Repository (20 sources) Vancomycin; Translations: [Vancomycin HCl CAPS] Drug Allergy 03-07-20 22 Anaphylaxis, Itching, Rash [facility] (8 sources) Vancomycin HCl in Dextrose SOLN; Translations: [Vancomycin HCl in Dextrose SOLN] Allergy to drug (finding) -Otolaryngolog y-[facility] Work Phone: (7 sources) Vancomycin; Translations: [VANCOMYCIN HCL] Drug Allergy 01-31-20 Unknown [facility] Work Phone: (7 sources) Vancomycin Hcl In Water; Translations: [VANCOMYCIN HCL IN WATER] Propensity to adverse reactions 01-31-20 23 Unknown [facility] Work Phone: (1 source) dofetilide Drug Allergy 08-25-19 22 Dizziness, Unknown [facility] (1 source) dofetilide Drug Allergy 04-12-20 [facility] Repository (1 source) Penicillins Drug allergy (disorder) 03-20-20 23 [facility] Repository (1 source) Vancomycin Drug Allergy 04-12-20 [facility] Repository Medications Current Medications Medication Drug Class(es) Dates Sig (Normalized) Sig (Original) budesonide 3 mg delayed release oral capsule (4 sources) Corticosteroid Start: 04-24-2023 Budesonide 3 MG 3 tabs daily for 60 days, 2 tabs daily for 14 days, 1 tab daily for 14 days Orally Once a day for 90 days Apr, Active Calcium (20 sources) Phosphate Binder, Calcium Calcium TABS Quantity: 0 Refills: 0 Ordered: 29-Jun-2019 [...] 1 tablet by ana th once daily. cholestyramine resin 4000 mg powder [...] 0 11/06/2019 Active take 2 capsules by out in the morning dilTIAZem HCl ER Coated [...] every week ergocalciferol (Vitamin D-2) 1.25 MG (14010 UT) capsule Take 1 capsule (1,250 mcg) by mouth 1 (one) time per week. 0 10/08/2022 Active Start: 01-10-2022 take 1 capsule by mo uth every week Vitamin D (Ergocalciferol) 1.25 MG (02858 UT) Oral Capsule TAKE 1 CAPSULE BY MOUTH ONCE A WEEK Quantity: 12 Refills: 0 Ordered: 17-Jul-2022 DO Start : 10-Jan-2022 Active End: 05-04-2021 take 1 capsule by mouth every week ergocalciferol 50,000 unit capsule (VITAMIN D2, DRISDOL) Take 50,000 Units by mouth one time a week. 05/04/2021 Discontinued (Discontinued by another Health Care Provider) Vitamin D2 Activ e Comment on above: [...] 1 tablet by mouth daily before breakfast. 12/15/2020 Active Start: 07-01-2020 End: 04-12-2023 take [...] 250 mL IVPB (1 source) Start: 03-11-20 20 magnesium sulfate 4 g, lidocaine (cardiac) (XYLOCAINE) [...] Start: 07-17-2022 take 1 capsule by mo [facility] at dinner Omeprazole 20 MG Oral Capsule [...] Start: 01-15-2020 take 1 capsule by mo [facility] once daily omeprazole (PRILOSEC) 40 MG capsule [...] disintegrating tablet 4 mg polyethylene glycol 3350 149890 mg / potassium chloride 2970 mg / sodium bicarbonate 6740 mg / sodium chloride 5860 mg / sodium sulfate 30640 mg powder for oral solution (7 sources) Osmotic Laxative Start: 03-20-20 23 take 4000 mL by mouth once Golytely 236 GM 4,000 ML Orally once for Feb, Active pramipexole dihydrochloride 1 mg oral [...] oral tablet (20 sources) Aluminum Complex Start: 020 take 1 tablet by mouth four times daily at bedtime sucralfate (CARAFATE) 1 GM tablet TAKE 1 TABLET BY MOUTH 4 TIMES DAILY (BEFORE MEALS AND AT BEDTIME). 120 Tablet 3 01/15/2020 Active Start: 01-15-2020 Sucralfate 1 G M Oral Tablet Quantity: 120 Refills: 0 Ordered: 15-Jan-2020 DO Start : 15-Jan-2020 Active End: 05-04-2021 take 1 tablet by mouth three times daily sucralfate (CARAFATE) 1 gram tablet Take 1 g by mouth three times daily. 05/04/2021 Discontinued (Discontinued by another Health Care Provider) topiramate 25 mg oral tablet (5 sources) [...] / benazepril hydrochloride 10 mg oral capsule (14 sources) Dihydropyridine Calcium Channel González, Angiotensin Converting [...] Comment on above: Take 1 capsule by [facility] once daily. apixaban 5 mg oral tablet (14 sources) Factor Xa Inhibitor Start: 07-01-2020 End: [...] Start: 11-06-2019 take 2 tablets by mo [facility] once daily benazepril (Lotensin) 5 mg tablet [...] thasone sodium phosphate 12 mg injection (CELESTONE) calcitriol 0.81514 mg oral capsule (20 sources) Vitamin D3 Analog Start: 01-15-2020 End: 05-04-2021 take 2 capsules by mouth once daily calcitriol (ROCALTROL) 0.25 mcg capsule Take 2 capsules by mouth once daily. 01/15/2020 05/04/2021 Discontinued (Discontinued by another Health Care Provider) Start: 01-15-2020 End: 04-12-2023 take 1 capsule by mouth once daily calcitriol (ROCALTROL) 0.25 MCG capsule TAKE 1 CAPSULE BY MOUTH DAILY. 30 Capsule 3 01/15/2020 Active Start: 09-25-2018 End: 07-01-2020 take 1 capsule by mouth twice daily Calcitriol (Rocaltrol) 0.25 mcg Capsule Discontinued 0.25 MCG PO Twice daily 60 September 25, 2018 7:45am July 01, 2020 2:33pm Calcitriol 0.25 MCG Oral Capsule Quantity: 0 Refills: 0 Ordered: 29-Jun-2019 DO Active Calcitriol Activ e Comment on above: Take 0.25 mcg by ana th once daily. calcium carbonate 1250 mg / cholecalciferol 600 unt oral tablet (4 sources) Vitamin D Start: 9 End: 9 take 2 tablets by mouth three times daily Calcium Carbonate-Vitamin D3 Discontinued 2 TAB PO Three times daily October 12, 2018 11:00pm December 19, 2018 9:18am Start: 09-25-2018 End: 10-13-2018 take 3 tablets by mouth every six hours Calcium Carbonate-Vitamin D3 (Oyster Shell Calcium-Vit D3) 500 mg(1,250mg) -200 unit Tablet Discontinued 3 TAB PO Q6H 360 September 25, 2018 7:45am October 13, 2018 [...] onitrate (IMDUR) 30 MG CR tablet Isosorbide [place] itrate Not-Taking/PRN Isosorbide [place] itrate Not-Taking ketorolac tromethamine 10 mg oral [...] 40 mg Dec, 1 mL metoprolol tartrate 25 mg oral tablet (20 sources) beta-Adrenergic González Start: 02-01-2021 End: 05-04-2021 take 0.5 tablet by mouth twice daily metoprolol tartrate, short acting, (LOPRESSOR) 25 mg tablet Take 0.5 tablets by mouth twice daily. 60 tablet 5 02/01/2021 05/04/2021 Discontinued (Discontinued by another Health Care Provider) Start: 07-01-2020 End: 04-12-2023 take 75 mg by mouth twice daily Metoprolol Tartrate Di scontinued 75 MG PO Twice daily July 01, [...] ranolazine 500 mg extended release oral tablet (2 sources) Anti-anginal End: 05-31-2022 take 1 tablet by mouth twice daily, then take 1 tablet by mouth every twelve hours ranolazine ER (RANEXA) 500 mg 12 hr tablet Take 500 mg by mouth twice daily. 05/04/2021 Discontinued (Discontinued by another Health Care Provider) [...] 12-Oct-2021 Active take 1 tablet by ana every twenty-four hours Zoloft 25 MG 1 [...] : 21-Mar-2022 Active take 1 capsule by mo 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; Translations: [OTH SHELTER CURRENT DRUG THERAPY] Onset: 3 Episodic Other aftercare (1 source) [facility] (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 of anticoagulants; Translations: [SHELTER CURRNT USE ANTICOAGULANTS] Onset: 3 Episodic Other aftercare (4 sources) 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; Translations: [OCCUPATIONAL THERAPY ASST CURRENT USE OF ASPIRIN] Onset: 3 Episodic Other aftercare (1 source) Patient encounter status; Translations: [[facility] (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 of antithrombotics/antiplat elets] 09-07-2022 Episodic Other aftercare (2 sources) Long-term current use of aspirin; Translations: [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] 09-07-2022 Episodic Other [...] 3 10-01-2022 Chronic Other connective tissue disease (3 sources) Arthrodesis status; Translations: [Arthrodesis status] Onset: 3 [...] Onset: 3 Chronic Other lower respiratory disease (15 sources) Dyspnea; Translations: [Shortness of breath] Onset: [...] Spondylosis; intervertebral disc disorders; other back problems (18 sources) Cervical spondylosis; Translations: [Spondylosis without myelopathy or radiculopathy, cervical region] Onset: 2 Resolved: 2 Chronic Spondylosis; intervertebral disc disorders; other back problems (13 sources) Low back pain; Translations: [Low back pain] Onset: 0 10-01-2022 Episodic Thyroid disorders (20 sources) 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; Translations: [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, [...] of the ascending aorta, without rupture] Onset: Past or Other Problems Problem Classification Problem Date Documented Da te Episodic/Chronic Abdominal pain (16 sources) Unspecified abdominal pain; Translations: [Left lower quadrant pain] Onset: 12-31-2021 Episodic Biliary tract disease (18 sources) Gallstone; Translations: [...] 10-01-2022 Episodic Other aftercare (1 source) 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/anti platelets; Translations: [[facility] (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 of antithrombotics/anti platelets] Onset: 08-30-2022 [...] [Repeated falls] Onset: 02-05-2022 10-01-2022 Episodic Other connective tissue disease (2 sources) Pain in right arm Onset: 03-21-2023 Episodic Other diseases of kidney and ureters [...] 10-27-2019 02-25-2023 Episodic Other non-traumatic joint disorders (5 sources) Pain in left shoulder Onset: 06-21-2021 Resolved: 10-02-2021 Episodic Other non-traumatic joint disorders [...] NL INIT] Onset: 11-17-2021 Episodic Thyroid disorders (18 sources) Disorder of thyroid gland; Translations: [Disorder [...] Test Name Value Interpretation Reference Range Facility Office Visiton 12-25-2023 Follow-up visit [id number] Fr Harmony freda Peoples 1955 M Date Provider Department Center 12/25/2023 NIKKI QUEEN Family History Problem Relation Age of Onset Hypertension Mother Cancer Mother Stroke Mother Hypertension Father Aortic aneurysm Father Cancer Father Aortic aneurysm Paternal Grandfather Sudden Neg Hx Family Status - Relation Status Age at Mother Father Paternal Grandfather Neg Hx Level of Service:86967 HI OFFICE/OUTPATIENT ESTABLISHED MOD MDM 30 MIN Normal [facility] 36on 10-22-2023 36 Patient called and s tates that he is having a lot of dizzy spells since starting the Ranexa you prescribed. Patient would like to know if he can stop this and if their would be something else you would like to prescribe. Please advise [facility] Telephoneon 10-22-2023 Telephone [id number] Fr camden Antunezomaricoty Peoples Jr. 1955 M Date Provider Department Center 10/22/2023 SHUKRI READ Family History Problem Relation Age of Onset Hypertension Mother Cancer Mother Stroke Mother Hypertension Father Aortic aneurysm Father Cancer Father Aortic aneurysm Paternal Grandfather Sudden Neg Hx Family Status - Relation Status Age at Mother Father Paternal Grandfather Neg Hx Normal [facility] Office Visiton 10-10-2023 Follow-up visit [id number] Fr camden Antunezomaricoty Peoples Jr. 1955 M Date Provider Department Center 10/10/2023 SHUKRI READ Family History Problem Relation Age of Onset Hypertension Mother Cancer Mother Stroke Mother Hypertension Father Aortic aneurysm Father Cancer Father Aortic aneurysm Paternal Grandfather Sudden Neg Hx Family Status - Relation Status Age at Mother Father Paternal Grandfather Neg Hx Level of Service:21948 HI OFFICE/OUTPATIENT ESTABLISHED LOW MDM 20 MIN Normal [facility] ANESon 08-30-2023 ANES ------- Attestation signed by Nikki Lopez MD at 08/30/2023 10:49 AM Nikki Lopez MD, MPH, [facility], [facility], [facility] Interventional Cardiology Pager Email: [email or web address] Patient: Yoli Richelle Antunez Jr. Procedure Information Date/Time: 08/30/23 1030 Procedure: Coronary angiography (Left) Location: [facility] MANAGER INVESTIGATIONS 3 / [facility] (Cath) Providers: Nikki Lopez [...] fellow and attending. Additional Equipment Requests Normal [facility] BASIC METABOLIC PANELon 05-1 -2023 Anion gap [Moles/Vol] 13 mmol/L Normal 7-20 [facility] Comment on above: Performed By: #### L [id number] ####[facility] (BEAKER)[address] [place] [address] Calcium [Mass/Vol] 7.9 mg/dL Low 8.6-10.3 [facility] Comment on above: Performed By: #### L [id number] ####[facility] (BEAKER)[address] [place] [address] Chloride [Moles/Vol] 106 mmol/L Normal 98-107 [facility] Comment on above: Performed By: #### L [id number] ####[facility] ([facility])[address] [place] [address] CO2 [Moles/Vol] 25 mmol/L Normal 21-31 [facility] Comment on above: Performed By: #### L [id number] ####[facility] ([facility])[address] [place] [address] Creatinine [Mass/Vol] 1.30 mg/dL Normal 0.70-1.30 [facility] Comment on above: Performed By: #### L [id number] ####[facility] ([facility])[address] [place] [address] GLOMERULAR FILTRATION RATE ML/MIN/1.73 SQ M.PREDICTED 59.1 mL/min/1.73m*2 Low >60.0 [facility] Comment on above: Result Comment: The [facility]???s estimated glomerular filtration rate (eGFR) will [...] of individuals. Performed By: #### L [id number] ####[facility] ([facility])[address] [place] [address] Glucose [Mass/Vol] 96 mg/dL Normal 70-100 [facility] Comment on above: Performed By: #### L [id number] ####[facility] ([facility])[address] [place] [address] Potassium [Moles/Vol] 4.2 mmol/L Normal 3.5-5.1 [facility] Comment on above: Performed By: #### L [id number] ####[facility] (BEAKER)[address] [place] [address] Sodium [Moles/Vol] 140 mmol/L Normal 136-145 [facility] Comment on above: Performed By: #### L [id number] ####[facility] (BEAKER)[address] [place] [address] Urea nitrogen [Mass/Vol] 23 mg/dL Normal 7-25 [facility] Comment on above: Performed By: #### L [id number] ####[facility] (BEAKER)[address] [place] [address] UREA NITROGEN/CREATININE (MASS RATIO) IN SER/PLAS 17.7 Normal [facility] Comment on above: Performed By: #### L [id number] ####[facility] ([facility])[address] [place] [address] CBCon 08-30-2023 Erythrocyte distribution width (RBC) [Ratio] 14.6 % Normal 11.5-15.0 [facility] Comment on above: Performed By: #### L [id number] #### [facility] ([facility]) [address] [place] [address] ERYTHROCYTE MEAN CORPUSCULAR HEMOGLOBIN CONCENTRATION (G/DL) BY AUTOMATED 32.6 g/dL Normal 32.0-35.0 [facility] Comment on above: Performed By: #### L [id number] #### [facility] (BEAKER) [address] [place] [address] Hematocrit (Bld) [Volume fraction] 42.9 % Normal 39.0-55.0 [facility] Comment on above: Performed By: #### L [id number] #### [facility] (BEAKER) [address] [place] [address] Hemoglobin (Bld) [Mass/Vol] 14.0 g/dL Normal 13.0-17.0 [facility] Comment on above: Performed By: #### L [id number] #### [facility] (BEAKER) [address] [place] [address] MCH (RBC) [Entitic mass] 27.7 pg Normal 27.0-33.0 [facility] Comment on above: Performed By: #### L [id number] #### [facility] ([facility]) [address] [place] [address] MCV (RBC) [Entitic vol] 84.8 fL Normal 82.0-98.0 [facility] Comment on above: Performed By: #### L [id number] #### [facility] ([facility]) [address] [place] [address] PLATELETS (10*3/UL) IN BLOOD AUTOMATED COUNT 203 10*3/uL Normal 150-400 [facility] Comment on above: Performed By: #### L [id number] #### [facility] ([facility]) [address] [place] [address] RBC (Bld) [#/Vol] 5.06 10*6/uL Normal 4.20-5.70 [facility] Comment on above: Performed By: #### L [id number] #### [facility] ([facility]) [address] [place] [address] WBC (Bld) [#/Vol] 6.49 10*3/uL Normal 4.00-10.60 [facility] Comment on above: Performed By: #### L [id number] #### [facility] ([facility]) [address] [place] [address] [facility] 08-30-2023 ------- Attestation signed by Nikki Lopez MD at 08/30/2023 10:49 AM Nikki Lopez MD, MPH, [facility] Interventional Cardiology Pager Email: [email or web address] H&P reviewed. The patient was examined and there are no changes to the H&P. Hx of CAD, now with multiple episodes of angina pectoris. Will proceed with coronary angiogram for further assessment. Procedure's details, risks and benefits discussed with the patient and he's agreeable. [facility] NURSNOTEon 08-30-2023 NURSNOTE RN educated pt on d/ c instructions. RN encouraged pt to voice any questions or concerns. Pt verbalizes no questions or concerns at this time. Pt was wheeled off of unit with all of belongings. [facility] Orders Onlyon 08-23-2023 Orders Only [id number] Fr freda Antunez Jr. 1955 M Date Provider Department Center 08/23/2023 GOLD RUIZ [facility] Family History Problem Relation Age of Onset Hypertension Mother Cancer Mother Stroke Mother Hypertension Father Aortic aneurysm Father Cancer Father Aortic aneurysm Paternal Grandfather Sudden Neg Hx Family Status - Relation Status Age at Mother Father Paternal Grandfather Neg Hx [facility] Office Visiton 08-22-2023 Follow-up visit [id number] Fr freda Antunez Jr. 1955 M Date Provider Department Center 08/22/2023 SHUKRI READ [facility] Family History Problem Relation Age of Onset Hypertension Mother Cancer Mother Stroke Mother Hypertension Father Aortic aneurysm Father Cancer Father Aortic aneurysm Paternal Grandfather Sudden Neg Hx Family Status - Relation Status Age at Mother Father Paternal Grandfather Neg Hx Level of Service:52972 HI OFFICE/OUTPATIENT ESTABLISHED LOW MDM 20 MIN [facility] Office Visiton 08-14-2023 Follow-up visit [id number] Fr Harmony freda Peoples . 1955 M Date Provider Department Center 08/14/2023 [id number]-COLLIN GONSALEZ Family History Problem Relation Age of Onset Hypertension Mother Cancer Mother Stroke Mother Hypertension Father Aortic aneurysm Father Cancer Father Aortic aneurysm Paternal Grandfather Sudden Neg Hx Family Status - Relation Status Age at Mother Father Paternal Grandfather Neg Hx Level of Service:81648 HI OFFICE/OUTPATIENT ESTABLISHED LOW MDM 20 MIN Normal [facility] Office Visiton 07-18-2023 Follow-up visit [id number] JeseniamisaelFr jordi freda Peoples . 1955 M Date Provider Department Center 07/18/2023 166YANDEL BARTH Family History Problem Relation Age of Onset Hypertension Mother Cancer Mother Stroke Mother Hypertension Father Aortic aneurysm Father Cancer Father Aortic aneurysm Paternal Grandfather Sudden Neg Hx Family Status - Relation Status Age at Mother Father Paternal Grandfather Neg Hx Level of Service:06232 HI OFFICE/OUTPATIENT ESTABLISHED MOD MDM 30 MIN Reason for Visit and Comments: Palpitations [784670] Atrial Fibrillation [80] Syncope [506] s/p pacemaker [Other] Wound Care [617] Normal [facility] Office Visiton 07-11-2023 Follow-up visit [id number] HarmonyFr freda Peoples . 1955 M Date Provider Department Center 07/11/2023 166YANDEL BARTH Family History Problem Relation Age of Onset Hypertension Mother Cancer Mother Stroke Mother Hypertension Father Aortic aneurysm Father Cancer Father Aortic aneurysm Paternal Grandfather Sudden Neg Hx Family Status - Relation Status Age at Mother Father Paternal Grandfather Neg Hx Level of Service:36716 HI OFFICE/OUTPATIENT ESTABLISHED MOD MDM 30 MIN Reason for Visit and Comments: Palpitations [297371] Wound Check [172349] Normal [facility] BASIC METABOLIC PANELon 06-20 Anion gap [Moles/Vol] 13 mmol/L Normal 7-20 [facility] Comment on above: Performed By: #### L [id number] #### [facility] (BEAKER) [address] [place] [address] Calcium [Mass/Vol] 7.4 mg/dL Low 8.6-10.3 [facility] Comment on above: Performed By: #### L [id number] #### [facility] ([facility]) [address] [place] [address] Chloride [Moles/Vol] 105 mmol/L Normal 98-107 [facility] Comment on above: Performed By: #### L [id number] #### [facility] ([facility]) [address] [place] [address] CO2 [Moles/Vol] 26 mmol/L Normal 21-31 [facility] Comment on above: Performed By: #### L [id number] #### [facility] ([facility]) [address] [place] [address] Creatinine [Mass/Vol] 1.28 mg/dL Normal 0.70-1.30 [facility] Comment on above: Performed By: #### L [id number] #### [facility] ([facility]) [address] [place] [address] GLOMERULAR FILTRATION RATE ML/MIN/1.73 SQ M.PREDICTED 60.2 mL/min/1.73m*2 Normal >60.0 [facility] Comment on above: Result Comment: The [facility]???s estimated glomerular filtration rate (eGFR) will [...] individuals. Performed By: #### L [id number] #### [facility] ([facility]) [address] [place] [address] Glucose [Mass/Vol] 88 mg/dL Normal 70-100 [facility] Comment on above: Performed By: #### L [id number] #### [facility] ([facility]) [address] [place] [address] Potassium [Moles/Vol] 4.0 mmol/L Normal 3.5-5.1 [facility] Comment on above: Performed By: #### L [id number] #### [facility] ([facility]) [address] [place] [address] Sodium [Moles/Vol] 140 mmol/L Normal 136-145 [facility] Comment on above: Performed By: #### L [id number] #### [facility] ([facility]) [address] [place] [address] Urea nitrogen [Mass/Vol] 21 mg/dL Normal 7-25 [facility] Comment on above: Performed By: #### L [id number] #### [facility] ([facility]) [address] [place] [address] UREA NITROGEN/CREATININE (MASS RATIO) IN SER/PLAS 16.4 Normal [facility] Comment on above: Performed By: #### L [id number] #### [facility] ([facility]) [address] [place] [address] CBC WITH AUTO DIFFERENTIALon 07-09-2023 Basophils (Bld) [#/Vol] 0.05 10*3/uL Normal 0.00-0.20 [facility] Comment on above: Performed By: #### L [id number] #### [facility] ([facility]) [address] [place] [address] Basophils/100 WBC (Bld) 0.7 % Normal 0.0-1.0 [facility] Comment on above: Performed By: #### L [id number] #### [facility] ([facility]) [address] [place] [address] Eosinophils (Bld) [#/Vol] 0.22 10*3/uL Normal 0.00-0.50 [facility] Comment on above: Performed By: #### L [id number] #### [facility] ([facility]) [address] [place] [address] Eosinophils/100 WBC (Bld) 3.1 % Normal 0.0-6.0 [facility] Comment on above: Performed By: #### L [id number] #### [facility] ([facility]) [address] [place] [address] Erythrocyte distribution width (RBC) [Ratio] 14.4 % Normal 11.5-15.0 [facility] Comment on above: Performed By: #### L [id number] #### [facility] ([facility]) [address] [place] [address] ERYTHROCYTE MEAN CORPUSCULAR HEMOGLOBIN CONCENTRATION (G/DL) BY AUTOMATED 33.0 g/dL Normal 32.0-35.0 [facility] Comment on above: Performed By: #### L [id number] #### [facility] ([facility]) [address] [place] [address] Hematocrit (Bld) [Volume fraction] 43.7 % Normal 39.0-55.0 [facility] Comment on above: Performed By: #### L [id number] #### [facility] ([facility]) [address] [place] [address] Hemoglobin (Bld) [Mass/Vol] 14.4 g/dL Normal 13.0-17.0 [facility] Comment on above: Performed By: #### L [id number] #### [facility] ([facility]) [address] [place] [address] Immature granulocytes (Bld) [#/Vol] 0.04 10*3/uL Normal 0.00-0.20 [facility] Comment on above: Performed By: #### L [id number] #### [facility] ([facility]) [address] [place] [address] Immature granulocytes/100 WBC (Bld) 0.6 % Normal 0.0-1.0 [facility] Comment on above: Performed By: #### L [id number] #### [facility] ([facility]) [address] [place] [address] Lymphocytes (Bld) [#/Vol] 1.82 10*3/uL Normal 1.20-4.00 [facility] Comment on above: Performed By: #### L [id number] #### [facility] ([facility]) [address] [place] [address] Lymphocytes/100 WBC (Bld) 25.7 % Normal 20.0-45.0 [facility] Comment on above: Performed By: #### L [id number] #### [facility] ([facility]) [address] [place] [address] MCH (RBC) [Entitic mass] 27.7 pg Normal 27.0-33.0 [facility] Comment on above: Performed By: #### L [id number] #### [facility] ([facility]) [address] [place] [address] MCV (RBC) [Entitic vol] 84.0 fL Normal 82.0-98.0 [facility] Comment on above: Performed By: #### L [id number] #### [facility] (BEAKER) [address] [place] [address] Monocytes (Bld) [#/Vol] 0.70 10*3/uL Normal 0.10-1.00 [facility] Comment on above: Performed By: #### L [id number] #### [facility] (BEAKER) [address] [place] [address] Monocytes/100 WBC (Bld) 9.9 % Normal 5.0-12.0 [facility] Comment on above: Performed By: #### L [id number] #### [facility] (BEAKER) [address] [place] [address] Neutrophils (Bld) [#/Vol] 4.26 10*3/uL Normal 1.60-7.60 [facility] Comment on above: Performed By: #### L [id number] #### [facility] (BEAKER) [address] [place] [address] Neutrophils/100 WBC (Bld) 60.0 % Normal 40.0-72.0 [facility] Comment on above: Performed By: #### L [id number] #### [facility] ([facility]) [address] [place] [address] NRBC (PER 100 WBCS) BY AUTOMATED COUNT 0.0 % Normal 0 [facility] Comment on above: Performed By: #### L [id number] #### [facility] ([facility]) [address] [place] [address] PLATELETS (10*3/UL) IN BLOOD AUTOMATED COUNT 221 10*3/uL Normal 150-400 [facility] Comment on above: Performed By: #### L [id number] #### [facility] ([facility]) [address] [place] [address] RBC (Bld) [#/Vol] 5.20 10*6/uL Normal 4.20-5.70 [facility] Comment on above: Performed By: #### L [id number] #### [facility] ([facility]) [address] [place] [address] WBC (Bld) [#/Vol] 7.09 10*3/uL Normal 4.00-10.60 [facility] Comment on above: Performed By: #### L [id number] #### [facility] ([facility]) [address] [place] [address] HPon 07-09-2023 HP History Of Present I meliton Mcgee Richelle Antunez Jr. is a 68 y.o. male presenting with [...] atrial fibrillation (CMS/HCC) Pacemaker Shukri Vilchis MD [facility] HP H&P reviewed. The blanche chauhan was examined and there are no changes to the H&P. [facility] NURSNOTEon 07-09-2023 NURSNOTE RN educated pt on d/ c instructions. RN encouraged pt to voice any questions or concerns. Pt verbalizes no questions or concerns at this time. Pt was wheeled off of unit with all of belongings. [facility] NURSNOTE CHG wipes and betadi ne nasal swabs completed. Normal [facility] Orders Onlyon 07-09-2023 Orders Only [id number] Fr freda Antunez 1955 M Date Provider Department Center 07/09/2023 RICH SANCHEZ [facility] Family History Problem Relation Age of Onset Hypertension Mother Cancer Mother Stroke Mother Hypertension Father Aortic aneurysm Father Cancer Father Aortic aneurysm Paternal Grandfather Sudden Neg Hx Family Status - Relation Status Age at Mother Father Paternal Grandfather Neg Hx Normal [facility] 29on 06-17-2023 29 Addended by: Patrick CHAIREZ on: 06/17/2023 03:26 PM Modules accepted: Orders Normal [facility] HPon 06-17-2023 JOE Antunez is a pleasant 68 year old male previously evaluated for episodes of syncope and near syncope with history of atrial fibrillation and rf ablation at our [facility] in the Heart and Vascular Center at the [facility]. He was recently evaluated by Dr. [...] and time. Lab Review: Stress test 05/2023: [facility] CONCLUSION: 1. No acute or reversible ischemia. 2. Diaphragm attenuation artifact versus mildly decreased perfusion of the inferior wall; stable between stress and rest imaging. Attenuation artifact is suspected. 3. Normal wall motion, left ventricle volume, and ejection fraction. Dictated by: Donnell Du M.D. on 06/07/2023 at 12:03 Approved by: Donnell Du M.D. on 06/07/2023 at 13:36 [facility] echocardiogram 05/2023: CONCLUSION: 1. The left [...] PPM He had all questions answered. RTC 3m Normal [facility] Office Visiton 06-17-2023 Follow-up visit [id number] Fr freda Antunez Jr. 1955 M Date Provider Department Center 06/17/2023 JACKIE HASTINGS [facility] CARD [facility] Family History Problem Relation Age of Onset Hypertension Mother Cancer Mother Stroke Mother Hypertension Father Aortic aneurysm Father Cancer Father Aortic aneurysm Paternal Grandfather Sudden Neg Hx Family Status - Relation Status Age at Mother Father Paternal Grandfather Neg Hx Level of Service:67296 HI OFFICE/OUTPATIENT ESTABLISHED LOW MDM 20 MIN Reason for Visit and Comments: Syncope [506] Normal [facility] Blood Urea Nitrogenon 2023 Urea nitrogen [Mass/Vol] 27 mg/dL High 7-25 [facility] Comment on above: Order Comment: STAT FOR ct Performed By: #### C REAT, BUN #### [address] abdomen pelvis w conon CT abdomen pelvis w [facility] [place] [address] [place] [address] CT Scan Report Signed Patient: Yoli Antunez Jr MR#: [id number] : 1955 Acct:[id number] Age/Sex: 68 / M ADM Date: 06/10/23 Loc: CT Room: Type: [facility] Attending Dr: Charlene Soria MD Copies [...] Aide Banks M.D.06/10/2023 4:04 PM Dictation Location: [facility]--10 Transcribed By: [facility] 06/10/23 1604 Dictated By: Aied Banks MD 06/10/23 1550 Signed By: 06/10/23 1604 [facility] Creatinineon 06-10-2023 Creatinine [Mass/Vol] 1.28 mg/dL Normal 0.70-1.30 [facility] Comment on above: Order Comment: STAT FOR ct Performed By: #### JANN GONZALEZ #### [address] GFR/1.73 sq M.predicted MDRD (S/P/Bld) [Vol rate/Area] mL/min/{1.73_m2} [facility] Comment on above: Order Comment: STAT FOR ct Result Comment: PERF ORMED BY: [place] [address] PATHOLOGIST DISTRICT WILDLIFE MANAGER ABDOUL ORR M.D. Performed By: #### C REAT, BUN #### [facility] [address] [id number] [facility] Creatinine [Mass/volume] in Serum or PlasmaOrdered By: Imad Asa on 06-10-2023 Creatinine [Mass/Vol] 1.28 mg/dL 0.70-1.30 [facility] No Panel InformationOrdered By: Imad Asa on 06-10-2023 Estimated GFR (CKD-EPI) > 60.0 mL/Min [facility] Creatinine Clearance (Chem N/A [facility] Urea nitrogen [Mass/volume] in Serum or PlasmaOrdered By: Imad Asaad on 06-10-2023 Urea nitrogen [Mass/Vol] 27 mg/dL 11-13 [facility] ALL KAPPA/LAMBDA FREE SERUMo n 06-01-2023 [facility] KAPPA LC FREE SER-MCNC 30.6 mg/L High 3.3 - 19.4 mg/L [facility] Comment on above: Rarely, increased se rum free light chains levels may not be detected or accurately quantified due to prozone phenomenon or in high viscosity samples using this immunoturbidimetric assay. Correlation with other laboratory results and clinical findings is recommended. The [place] Free Light Chain was performed using the Binding Site Optilite immunoturbidimetric method. Result obtained with different assay methods or kits cannot be used interchangeably. [facility] KAPPA LC/LAMBDA SER 1.72 High 0.26 - 1.65 [facility] LAMBDA LC FREE SERPL-MCNC 17.8 mg/L 5.7 - 26.3 mg/L [facility] Comment on above: Rarely, increased se rum [...] Interpretation and review of laboratory results Abnormal [facility] Specimen Type: BLOOD SPECIMEN Ordering Facility: [facility] Address: [address] [place] [address] Original Ordering Provider: MARÍA CORTES [facility] KAPPA/BETHEA,FREE,SERon 2023 Immunoglobulin light chains.kappa.free (S) [Mass/Vol] 30.6 mg/L High 3.3-19.4 [facility] Comment on above: Order Comment: Speci men Type: BLOOD SPECIMENOrdering Facility: [facility] Address: [address] [place] [address] Result Comment: Rare ly, increased serum free light chains levels may not be detected or accurately quantified due to prozone phenomenon or in high viscosity samples using this immunoturbidimetric assay. Correlation with other laboratory results and clinical findings is recommended. The [place] Free Light Chain was performed using the Binding Site Optilite immunoturbidimetric method. Result obtained with different assay methods or kits cannot be used interchangeably. Performed By: #### K LFRS ####[facility] [id number] [place] [address] [place] Immunoglobulin light chains.kappa/Immunog lobulin light chains.lambda (S) [Mass ratio] 1.72 High 0.26-1.65 [facility] Comment on above: Order Comment: Speci lucas Type: BLOOD SPECIMENOrdering Facility: [facility] Address: [address] [place] [address] Performed By: #### K LFRS ####[facility] [id number] [place] [address] [place] Immunoglobulin light chains.lambda.free [Mass/Vol] 17.8 mg/L Normal 5.7-26.3 [facility] Comment on above: Order Comment: Speci men Type: BLOOD SPECIMENOrdering Facility: [facility] Address: [address] [place] [address] Result Comment: Rare ly, increased serum free [...] used interchangeably. Performed By: #### K LFRS ####[facility] [id number] [address] [place] Office Visiton 05-30-2023 Follow-up visit [id number] Fr Harmony freda Peoples 1955 M Date Provider Department Center 05/30/2023 Tami-SHUKRI VILCHIS [facility] Family History Problem Relation Age of Onset Hypertension Mother Cancer Mother Stroke Mother Hypertension Father Aortic aneurysm Father Cancer Father Aortic aneurysm Paternal Grandfather Sudden Neg Hx Family Status - Relation Status Age at Mother Father Paternal Grandfather Neg Hx Level of Service:35088 HI OFFICE/OUTPATIENT ESTABLISHED LOW MDM 20 MIN Normal [facility] Office Visiton 2023 Follow-up visit [id number] Fr camden Antunezomaricoty Peoples Jr. 1955 M Date Provider Department Center 2023 Sruthi-ELYSSA SOLANO LEX [facility] Family History Problem Relation Age of Onset Hypertension Mother Cancer Mother Stroke Mother Hypertension Father Aortic aneurysm Father Cancer Father Aortic aneurysm Paternal Grandfather Sudden Neg Hx Family Status - Relation Status Age at Mother Father Paternal Grandfather Neg Hx Level of Service:19450 HI OFFICE/OUTPATIENT ESTABLISHED MOD MDM 30 MIN [facility] Documentationon 05-17-2023 Documentation [id number] Fr freda Antunez Jr. 1955 M Date Provider Department Center 05/17/202304368-DQBSCISHELLY MURCIA [facility] Family History Problem Relation Age of Onset Hypertension Mother Cancer Mother Stroke Mother Hypertension Father Aortic aneurysm Father Cancer Father Aortic aneurysm Paternal Grandfather Sudden Neg Hx Family Status - Relation Status Age at Mother Father Paternal Grandfather Neg Hx Reason for Visit and Comments: Specialty Pharmacy Note: [place] [Other] [facility] 36on 05-16-2023 36 Hi! I was looking to Rx ivabradine for Mr. Antunez but I saw there's a contraindication with diltiazem. Do you typically have patients on both or should I stop the diltiazem? He is also on metoprolol 12.5mg BID. Appreciate your help! Harriet [facility] Orders Onlyon 05-16-2023 Orders Only [id number] Fr freda Antunez Jr. 1955 M Date Provider Department Center 05/16/2023 YANDEL VILLEGAS Family History Problem Relation Age of Onset Hypertension Mother Cancer Mother Stroke Mother Hypertension Father Aortic aneurysm Father Cancer Father Aortic aneurysm Paternal Grandfather Sudden Neg Hx Family Status - Relation Status Age at Mother Father Paternal Grandfather Neg Hx [facility] 36on 04-26-2023 36 Sounds to be related to his autonomic dysfunction. Please let him know I discussed with Jackie. Recommend we try him on metoprolol, we can start low at 12.5mg BID, and uptitrate. If he does not tolerate it then we can try a different medication. [facility] 36on 04-25-2023 36 Hi! Trying to think of how to help Jamil. Do you think we should try to get Corlanor on board for him? Harriet [facility] 36on 04-24-2023 36 Jazzy, please let kasandra ent know his loop recorder hasn't shown any alarms. We can try him on low dose metoprolol 12.5mg twice daily to see if this would help. I don't remember if he's tried metoprolol in the past or not. [facility] 36 Thank you! [facility] 36 Can we lower his thr eshold for alarms to be HR >130? [facility] 36on 04-23-2023 36 Can we lower his thr eshold for alarms to be HR >130? [facility] 36 Are you guys able to see if he's had any events on his LOOP? I didn't see anything in Evoke. [facility] Telephoneon 04-19-2023 Telephone [id number] Fr freda Antunez Jr. 1955 M Date Provider Department Center 04/19/2023 JAZZY DHILLON LEX [facility] Family History Problem Relation Age of Onset Hypertension Mother Cancer Mother Stroke Mother Hypertension Father Aortic aneurysm Father Cancer Father Aortic aneurysm Paternal Grandfather Sudden Neg Hx Family Status - Relation Status Age at Mother Father Paternal Grandfather Neg Hx Normal [facility] Julian 04-16-2023 L ------- Specimen: [id number] Received: 04/16/23 Status: NIKHIL Bautista Num: [id number] Spec Type: Surgical Subm Dr: Charlene Soria MD Tissues: A Colon Biopsy (RANDOM COLON BX) B Colon Biopsy (ASC POLYP) Procedures: GUSTAVO/Ragini, Gross/Micro L4/2 Age/ Patient Sex Location Account Attending Physician Yoli Antunez Jr/Richelle [id number] Charlene Soria MD SPEC NUM: [id number] RECD: 04/16/23 STATUS: NIKHIL BAUTISTA NUM: [id number] RENAN: 04/16/23- SUBM DR: Charlene Soria MD ENTERED: 04/16/23 [facility] DR: SPEC TYPE: Surgical DEPT: S ORDERED: [...] submitted in one cassette labeled B1. Specimen: [id number] Received: 04/16/23 Status: NIKHIL Bautista Num: [id number] Spec Type: Surgical Subm Dr: Charlene Soria MD Tissues: A Colon Biopsy (RANDOM COLON BX) B Colon Biopsy (ASC POLYP) Procedures: HE/4, Gross/Micro L4/2 Patient: Yoli Antunez Jr [id number] (Continued) Specimen: [id number] Received: 04/16/23 (Continued) Signed (signature on file) Dony Duenas MD 04/17/232228 Specimen: [id number] Received: 04/16/23 Status: NIKHIL Bautista Num: [id number] Spec Type: Surgical Subm Dr: Charlene Soria MD Tissues: A Colon Biopsy (RANDOM COLON BX) B Colon Biopsy (ASC POLYP) Procedures: Herbie BUITRAGO/Hilda L4/2 Patient: Yoli Antunez Jr [id number] (Continued) Specimen: [id number] Received: 04/16/23 (Continued) Microscopic Description A. Two H E slides reviewed. The microscopic examination confirms the diagnosis. B. Two H E slides reviewed. The microscopic examination confirms the diagnosis. CPT Codes 90765g1 Specimen: [id number] Received: 04/16/23 Status: NIKHIL Bautista Num: [id number] Spec Type: Surgical Subm Dr: Charlene Soria MD Tissues: A Colon Biopsy (RANDOM COLON BX) B Colon Biopsy (ASC POLYP) Procedures: HE/4, Gross/Micro L4/2 Patient: Yoli Antunez Jr [id number] (Continued) Signed (signature on file) Dony Duenas MD 04/17/232228 Normal [facility] Office Visiton 04-03-2023 Follow-up visit [id number] Fr freda Antunez Jr. 1955 M [facility] Provider Department Center 04/03/2023 YANDEL VILLEGAS LEX [facility] Family History Problem Relation Age of Onset Hypertension Mother Cancer Mother Stroke Mother Hypertension Father Aortic aneurysm Father Cancer Father Aortic aneurysm Paternal Grandfather Sudden Neg Hx Family Status - Relation Status Age at Mother Father Paternal Grandfather Neg Hx Level of Service:43045 HI OFFICE/OUTPATIENT ESTABLISHED LOW MDM 20-29 MIN Reason for Visit and Comments: Atrial Fibrillation [80] Normal [facility] 36on 03-25-2023 36 Report left in your mailbox. Normal [facility] Patient Messageon 03-18-2023 Patient Message [id number] Fr freda Antunez Jr. 1955 M Date Provider Department Center 03/18/2023 JACKIE HASTINGS [facility] Family History Problem Relation Age of Onset Hypertension Mother Cancer Mother Stroke Mother Hypertension Father Aortic aneurysm Father Cancer Father Aortic aneurysm Paternal Grandfather Sudden Neg Hx Family Status - Relation Status Age at Mother Father Paternal Grandfather Neg Hx Normal [facility] APTTon 03-05-2023 ACTIVATED PARTIAL THROMBOPLASTIN TIME IN PPP BY COAGULATION ASSAY 33.2 Seconds Normal 25.0-35.0 [facility] Comment on above: Result Comment: Clin ical significance of the APTT is questionable in the presence of heparin. Performed By: #### L [id number] #### [facility] ([facility]) [address] [place] [address] CBC WITH AUTO DIFFERENTIALon 03-05-2023 Basophils (Bld) [#/Vol] 0.05 10*3/uL Normal 0.00-0.20 [facility] Comment on above: Performed By: #### L [id number] #### [facility] ([facility]) [address] [place] [address] Basophils/100 WBC (Bld) 0.6 % Normal 0.0-1.0 [facility] Comment on above: Performed By: #### L [id number] #### [facility] ([facility]) [address] [place] [address] Eosinophils (Bld) [#/Vol] 0.26 10*3/uL Normal 0.00-0.50 [facility] Comment on above: Performed By: #### L [id number] #### [facility] ([facility]) [address] [place] [address] Eosinophils/100 WBC (Bld) 3.0 % Normal 0.0-6.0 [facility] Comment on above: Performed By: #### L [id number] #### [facility] ([facility]) [address] [place] [address] Erythrocyte distribution width (RBC) [Ratio] 14.6 % Normal 11.5-15.0 [facility] Comment on above: Performed By: #### L [id number] #### [facility] ([facility]) [address] [place] [address] ERYTHROCYTE MEAN CORPUSCULAR HEMOGLOBIN CONCENTRATION (G/DL) BY AUTOMATED 33.7 g/dL Normal 32.0-35.0 [facility] Comment on above: Performed By: #### L [id number] #### [facility] ([facility]) [address] [place] [address] Hematocrit (Bld) [Volume fraction] 39.8 % Normal 39.0-55.0 [facility] Comment on above: Performed By: #### L [id number] #### [facility] ([facility]) [address] [place] [address] Hemoglobin (Bld) [Mass/Vol] 13.4 g/dL Normal 13.0-17.0 [facility] Comment on above: Performed By: #### L [id number] #### [facility] ([facility]) [address] [place] [address] Immature granulocytes (Bld) [#/Vol] 0.05 10*3/uL Normal 0.00-0.20 [facility] Comment on above: Performed By: #### L [id number] #### [facility] ([facility]) [address] [place] [address] Immature granulocytes/100 WBC (Bld) 0.6 % Normal 0.0-1.0 [facility] Comment on above: Performed By: #### L [id number] #### [facility] ([facility]) [address] [place] [address] Lymphocytes (Bld) [#/Vol] 2.42 10*3/uL Normal 1.20-4.00 [facility] Comment on above: Performed By: #### L [id number] #### [facility] ([facility]) [address] [place] [address] Lymphocytes/100 WBC (Bld) 27.8 % Normal 20.0-45.0 [facility] Comment on above: Performed By: #### L [id number] #### [facility] ([facility]) [address] [place] [address] MCH (RBC) [Entitic mass] 28.4 pg Normal 27.0-33.0 [facility] Comment on above: Performed By: #### L [id number] #### [facility] ([facility]) [address] [place] [address] MCV (RBC) [Entitic vol] 84.3 fL Normal 82.0-98.0 [facility] Comment on above: Performed By: #### L [id number] #### [facility] ([facility]) [address] [place] [address] Monocytes (Bld) [#/Vol] 0.90 10*3/uL Normal 0.10-1.00 [facility] Comment on above: Performed By: #### L [id number] #### [facility] ([facility]) [address] [place] [address] Monocytes/100 WBC (Bld) 10.4 % Normal 5.0-12.0 [facility] Comment on above: Performed By: #### L [id number] #### [facility] ([facility]) [address] [place] [address] Neutrophils (Bld) [#/Vol] 5.01 10*3/uL Normal 1.60-7.60 [facility] Comment on above: Performed By: #### L [id number] #### [facility] ([facility]) [address] [place] [address] Neutrophils/100 WBC (Bld) 57.6 % Normal 40.0-72.0 [facility] Comment on above: Performed By: #### L [id number] #### [facility] ([facility]) [address] [place] [address] NRBC (PER 100 WBCS) BY AUTOMATED COUNT 0.0 % Normal 0 [facility] Comment on above: Performed By: #### L [id number] #### [facility] ([facility]) [address] [place] [address] PLATELETS (10*3/UL) IN BLOOD AUTOMATED COUNT 236 10*3/uL Normal 150-400 [facility] Comment on above: Performed By: #### L [id number] #### [facility] ([facility]) [address] [place] [address] RBC (Bld) [#/Vol] 4.72 10*6/uL Normal 4.20-5.70 [facility] Comment on above: Performed By: #### L [id number] #### [facility] ([facility]) [address] [place] [address] WBC (Bld) [#/Vol] 8.69 10*3/uL Normal 4.00-10.60 [facility] Comment on above: Performed By: #### L [id number] #### [facility] ([facility]) [address] [place] [address] COMPREHENSIVE METABOLIC PANE Julian 03-05-2023 Albumin [Mass/Vol] 4.7 g/dL Normal 3.5-5.7 [facility] Comment on above: Performed By: #### L [id number] ####[facility] ([facility])[address] [place] [address] ALP [Catalytic activity/Vol] 69 U/L Normal 34-104 [facility] Comment on above: Performed By: #### L [id number] ####[facility] ([facility])[address] [place] [address] ALT [Catalytic activity/Vol] 17 U/L Normal 7-52 [facility] Comment on above: Performed By: #### L [id number] ####[facility] ([facility])[address] [place] [address] Anion gap [Moles/Vol] 15 mmol/L Normal 7-20 [facility] Comment on above: Performed By: #### L [id number] ####[facility] ([facility])[address] [place] [address] AST [Catalytic activity/Vol] 19 U/L Normal 13-39 [facility] Comment on above: Performed By: #### L [id number] ####[facility] ([facility])[address] [place] [address] Bilirubin [Mass/Vol] 0.4 mg/dL Normal 0.3-1.0 [facility] Comment on above: Performed By: #### L [id number] ####[facility] ([facility])[address] [place] [address] Calcium [Mass/Vol] 7.6 mg/dL Low 8.6-10.3 [facility] Comment on above: Performed By: #### L [id number] ####[facility] ([facility])[address] [place] [address] Chloride [Moles/Vol] 105 mmol/L Normal 98-107 [facility] Comment on above: Performed By: #### L [id number] ####[facility] ([facility])[address] [place] [address] CO2 [Moles/Vol] 23 mmol/L Normal 21-31 [facility] Comment on above: Performed By: #### L [id number] ####[facility] ([facility])[address] [place] [address] Creatinine [Mass/Vol] 1.32 mg/dL High 0.70-1.30 [facility] Comment on above: Performed By: #### L [id number] ####[facility] ([facility])[address] [place] [address] GLOMERULAR FILTRATION RATE ML/MIN/1.73 SQ M.PREDICTED 58.4 mL/min/1.73m*2 Low >60.0 [facility] Comment on above: Result Comment: The [facility]???s estimated glomerular filtration rate (eGFR) will [...] of individuals. Performed By: #### L [id number] ####[facility] ([facility])[address] [place] [address] Glucose [Mass/Vol] 95 mg/dL Normal 70-100 [facility] Comment on above: Performed By: #### L [id number] ####[facility] ([facility])[address] [place] [address] Potassium [Moles/Vol] 3.8 mmol/L Normal 3.5-5.1 [facility] Comment on above: Performed By: #### L [id number] ####[facility] ([facility])[address] [place] [address] Protein [Mass/Vol] 7.3 g/dL Normal 6.0-8.3 [facility] Comment on above: Performed By: #### L [id number] ####[facility] ([facility])[address] [place] [address] Sodium [Moles/Vol] 139 mmol/L Normal 136-145 [facility] Comment on above: Performed By: #### L [id number] ####[facility] ([facility])[address] [place] [address] Urea nitrogen [Mass/Vol] 23 mg/dL Normal 7-25 [facility] Comment on above: Performed By: #### L [id number] ####[facility] ([facility])[address] [place] [address] UREA NITROGEN/CREATININE (MASS RATIO) IN SER/PLAS 17.4 Normal [facility] Comment on above: Performed By: #### L [id number] ####[facility] ([facility])[address] [place] [address] CT BRAIN PERFUSIONon 023 CT BRAIN PERFUSION [...] brain recommended. Electronically signed: Damian Collier. Normal [facility] CT HEAD WO IV CONTRASTon CT [...] intracranial abnormality. Electronically signed: Damian Collier. Normal [facility] CTA HEAD W AND WO IV [...] brain recommended. Electronically signed: Damian Collier. Normal [facility] CTA NECK W AND WO IV [...] MRI brain recommended. Electronically signed: Damian Collier. [facility] EDPROVon 03-05-2023 EDPROV HPI Chief Complaint Patient presents with Unable to speak Patient dropped off from clinic with no report - Aphasic patient - onset was while in clinic. Initial evaluation completed by Dr. Bender at 4:50 PM. Yoli Haley Harmony Del ToroAmarjit is a 67 y/o male presenting to [...] no shortness of breath and no vomiting [place] Coma Scale Score: 15 Patient History Past [...] with standin (more content not included)... Normal [facility] EDPROV HPI Chief Complaint Patient presents [...] 03/05/23 1644 03/05/23 1644 03/05/23 1644 03/05/23 164 36.8 ???C (98.2 ???F) 71 18 132/87 SpO2 Temp Source Heart Rate Source Patient Position 03/05/23 1644 03/05/23 1644 03/05/23 1644 03/05/23 164 99 % Oral Monitor Sitting BP Location FiO2 (%) 03/05/23 164 -- Left arm Physical Exam Constitutional: General: [...] (more content not included)... Invalid Interpretation Code [facility] Office Visiton 03-05-2023 Follow-up visit [id number] Fr freda Antunez Jr. 1955 M Date Provider Department Center 03/05/2023 JACKIE HASTINGS [facility] Family History Problem Relation Age of Onset Hypertension Mother Cancer Mother Stroke Mother Hypertension Father Aortic aneurysm Father Cancer Father Aortic aneurysm Paternal Grandfather Sudden Neg Hx Family Status - Relation Status Age at Mother Father Paternal Grandfather Neg Hx Level of Service:[id number] HI OFFICE/OUTPATIENT ESTABLISHED MOD MDM 30-39 MIN Reason for Visit and Comments: Follow-up [579169] Normal [facility] POCT GLUCOSE METER UNSOLICIT ED RESULTSon 03-05-2023 Glucose [Mass/Vol] 96 mg/dL Normal 70-105 [facility] Comment on above: Order Comment: Waive d Testing in the ED is performed under the ED CLIA certificate #[id number]. Result Comment: vbei lfu Performed By: #### L [id number] ####[facility] ([employer])[address] [place] [address] PROTIME-INRon 03-05-2023 INR IN PPP BY COAGULATION ASSAY 0.98 Normal 0.90-1.10 [facility] Comment on above: Result Comment: ACCC [...] 1995;108:231S-246S. Performed By: #### L [id number] #### [facility] ([facility]) [address] [place] [address] PROTHROMBIN TIME (PT) IN PPP BY COAGULATION ASSAY 13.0 Seconds Normal 12.3-14.8 [facility] Comment on above: Performed By: #### L [id number] #### [facility] ([facility]) [address] [place] [address] TROPONIN Ion 03-05-2023 Troponin I.cardiac [Mass/Vol] 0.00 ng/mL Normal 0.00-0.04 [facility] Comment on above: Performed By: #### L [id number] #### [facility] ([facility]) [address] [place] [address] Leydi 02-05-2023 EDUARDO Telephone (NIQ) YOLI ANTUNEZ ([id number]) 1955 M Date Time Provider Department 02/05/23 MARÍA PEARL During your visit today, we recorded the following information about you: Aydee Hunter 02/05/2023 12:07 PM Signed Scanned in results from [facility] for review Shivani Ambriz RN 02/05/2023 12:49 PM Signed Copper: YAMILA Carnes, RN Shivani Ambriz RN 02/05/2023 1:01 PM Signed María Pearl APRN.STARTING GATE DRIVER You 7 minutes ago (12:52 PM) This is a normal result. [place] YAMILA Carnes, RN Allergies As of Date: 02/05/2023 Noted Allergy Reaction PENICILLINS 09/12/2000 16 - Unknown TIKOSYN (DOFETILIDE) 07/26/2022 14 - Other: See Comments Comments: Aphasia, dizzy, muscle cramps VANCOMYCIN 07/26/2022 10 - Anaphylaxis Date Reviewed: 01/24/2023 Reviewed by: Peggy Bravo RN - Fully Assessed Reason for Visit: Results [95] Cmt: [facility] Prescriptions as of 02/05/2023 - benazepril [...] Status:Closed by SHIVANI AMBRIZ on 02/05/23 [address] [facility] [address] ABDOMEN PELVIS W IV CONTR Adalgisa 02-01-2023 CT ABDOMEN PELVIS W IV CONTRAST Interpreted By: Renaldo Conrad, STUDY: CT ABDOMEN PELVIS W IV CONTRAST; 02/01/2023 2:11 pm INDICATION: Signs/Symptoms:worsening LLQ abdominal pain and watery diarrhea. COMPARISON: None. ACCESSION NUMBER(S): [id number] ORDERING CLINICIAN: YOSSI CHEN TECHNIQUE: CT of [...] Renaldo Conrad 02/01/2023 2:52 PM Dictation workstation: [id number] [facility] CT Abdomen and Pelvis W cont rast Candace 02-01-2023 1. No acute intra-ab dominal or pelvic pathology. 2. Uncomplicated colonic diverticulosis. 3. Trace hiatal hernia. 4. Scattered splenic calcific granulomas likely sequelae of chronic granulomatous infection. MACRO: None Signed by: Renaldo Conrad 02/01/2023 2:52 PM Dictation workstation: [id number] MMODAL Interpreted By: Renaldo Palmer, STUDY: CT ABDOMEN PELVIS W IV CONTRAST; 02/01/2023 2:11 pm INDICATION: Signs/Symptoms:worsening LLQ abdominal pain and watery diarrhea. COMPARISON: None. ACCESSION NUMBER(S): [id number] ORDERING CLINICIAN: YOSSI CHEN TECHNIQUE: CT of [...] islands. Bilateral small fat containing inguinal hernias. MMODAL Renaldo Conrad MD - 02/01/2023 Interpreted By: Renaldo Conrad, STUDY: CT ABDOMEN PELVIS W IV CONTRAST; 02/01/2023 2:11 pm INDICATION: Signs/Symptoms:worsening LLQ abdominal pain and watery diarrhea. COMPARISON: None. ACCESSION NUMBER(S): [id number] ORDERING CLINICIAN: YOSSI CHEN TECHNIQUE: CT of [...] Renaldo Conrad 02/01/2023 2:52 PM Dictation workstation: [id number] [facility] Work Phone: Radiology Study observation (narrative) [facility] Work Phone: CT Abdomen and Pelvis W cont rast IVOrdered By: Renaldo Conrad on 02-01-2023 [facility] Work Phone: Gastrointestinal pathogens i dentifiedon 02-01-2023 [...] Rotavirus RNA Not Detected Normal Not Detected [facility] Comment on above: Performed By: #### 7 9390-1 #### RENÉ Hinojosa ([id number]) [facility] ([facility]) [address] [place] [address] Basic metabolic 2000 panelon 01-31-2023 Anion gap [Moles/Vol] 12 mmol/L Normal 10-20 [facility] Comment on above: Performed By: #### 2 4321-2 #### MAYELIN Hill ([id number]) [facility] ([facility]) [address] [place] [address] Calcium [Mass/Vol] 7.2 mg/dL Low 8.6-10.3 [facility] Comment on above: Performed By: #### 2 4321-2 #### MAYELIN Hill ([id number]) [facility] ([facility]) [address] [place] [address] Chloride [Moles/Vol] 106 mmol/L Normal 98-107 [facility] Comment on above: Performed By: #### 2 4321-2 #### MAYELIN Hill ([id number]) [facility] ([facility]) [address] [place] [address] CO2 [Moles/Vol] 28 mmol/L Normal 21-32 [facility] Comment on above: Performed By: #### 2 4321-2 #### MAYELIN Hill ([id number]) [facility] ([facility]) [address] [place] [address] Creatinine [Mass/Vol] 1.65 mg/dL High 0.50-1.30 [facility] Comment on above: Performed By: #### 2 4321-2 #### MAYELIN Hill ([id number]) [facility] ([facility]) [address] [place] [address] GFR/1.73 sq M.predicted MDRD (S/P/Bld) [Vol rate/Area] 45 mL/min/1.73m*2 Low >60 [facility] Comment on above: Result Comment: Calc ulations of estimated GFR are performed using the 2020 CKD-EPI Study Refit equation without the race variable for the IDMS-Traceable creatinine methods. https://jasn.asnjournals.org/content//ASN.2510959 988 Performed By: #### 2 4321-2 #### MAYELIN Hill ([id number]) [facility] ([facility]) [address] [place] [address] Glucose [Mass/Vol] 83 mg/dL Normal 74-99 [facility] Comment on above: Performed By: #### 2 4321-2 #### MAYELIN Hill ([id number]) [facility] ([facility]) [address] [place] [address] Potassium [Moles/Vol] 4.3 mmol/L Normal 3.5-5.3 [facility] Comment on above: Performed By: #### 2 4321-2 #### MAYELIN Hill ([id number]) [facility] ([facility]) [address] [place] [address] Sodium [Moles/Vol] 142 mmol/L Normal 136-145 [facility] Comment on above: Performed By: #### 2 4321-2 #### MAYELIN Hill ([id number]) [facility] ([facility]) [address] [place] [address] Urea nitrogen [Mass/Vol] 25 mg/dL High 6-23 [facility] Comment on above: Performed By: #### 2 4321-2 #### MAYELIN Hill ([id number]) [facility] ([facility]) [address] [place] [address] Leydi 01-30-2023 EDUARDO Telephone (NIDaisha) YOLI ANTUNEZ ([id number]) 1955 M Date Time Provider Department 01/30/23 MARÍA PEARL During your visit today, we recorded the following information about you: Jannet Hunterh 01/30/2023 11:59 AM Signed Scanned in lab from [facility] for review Paul Burns RN 01/30/2023 1:53 PM Signed YAMILA Cage, RN, BA Paul Burns RN 01/30/2023 4:11 PM Signed María Pearl APRN.STARTING GATE DRIVER You 2 hours ago (1:58 PM) I [...] Encounter Status:Closed by PAUL BURNS on 01/30/23 [facility] Leydi 01-28-2023 EDUARDO Telephone (NIQ) YOLI ANTUNEZ ([id number]) 1955 M Date Time Provider Department 01/28/23 MARÍA PEARL During your visit today, we recorded the following information about you: Aydee Hunter 01/28/2023 9:37 AM Signed Scanned in results from [facility] for review Paul Burns RN 01/28/2023 9:58 AM Signed YAMILA Cage, RN, BA Paul Burns RN 01/28/2023 10:49 AM Signed María Pearl APRN.STARTING GATE DRIVER You 15 minutes ago (10:27 AM) Thank [...] Reason for Visit: Results [95] Cmt: [facility] Prescriptions as of 01/28/2023 - benazepril [...] Encounter Status:Closed by PAUL BURNS on 01/28/23 [facility] CNOVcaleb 01-24-2023 CNOV Office Visit (SYNCMN ) YOLI ANTUNEZ ([id number]) 1955 M Date Time Provider Department 01/24/23 [...] Test done in consult with María Pearl APRN.STARTING GATE DRIVER . Procedure Start Time: 1419 Height 198.1 [...] Anaphylaxis Date Reviewed: 01/24/2023 Reviewed by: Peggy rBavo RN - Fully Assessed Primary Visit Diagnosis:Autonomic dysfunction [G90.9] Other Visit Diagnoses:Orthostatic lightheadedness [R42] Near syncope [R55] Orthostatic dizziness [R42] Order(s):SALINE LOCK DISCONTINUE [2615067] Order #: [id number]: 1 INTERMITTENT PERIPHERAL DEVICE ([place]) [3306752] Order #: [id number]: 1 Prescriptions as of 01/24/2023 - benazepril [...] Status:Closed by PEGGY BRAVO on 01/24/23 Normal [facility] Leydi 01-24-2023 CNPN Telephone (NIQ) YOLI ANTUNEZ ([id number]) 1955 M Date Time Provider Department 01/24/23 MARÍA PEARL [facility] During your visit today, we recorded the following information about you: Aydee Hunter 01/24/2023 2:27 PM Signed Scanned in medical records from [facility] for review Paul Burns RN 01/24/2023 4:54 PM Signed Awaiting other lab results. Will send [facility] once all results are back. María Pearl APRN.STARTING GATE DRIVER You 2 hours ago (2:47 PM) Normal Vitamin B12. [place] YAMILA Cage, RN, BA Allergies As of Date: 01/24/2023 Noted Allergy Reaction PENICILLINS 09/12/2000 16 - Unknown TIKOSYN (DOFETILIDE) 07/26/2022 14 - Other: See Comments Comments: Aphasia, dizzy, muscle cramps VANCOMYCIN 07/26/2022 10 - Anaphylaxis Date Reviewed: 01/24/2023 Reviewed by: Peggy Bravo, RN - Fully Assessed Reason for Visit: Received Outside Medical Records [3577] Cmt: [facility] Prescriptions as of 02/04/2023 - aspirin, [...] Encounter Status:Closed by PAUL BURNS on 02/04/23 [facility] Sudarshan 01-23-2023 CNOV Office Visit (NENMMN ) YOLI ANTUNEZ ([id number]) 1955 M Date Time Provider Department 01/23/23 8:00 AM MARÍA PEARL During your visit today, we [...] this focusing problem? 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 The lightheadedness and dizziness does NOT [...] with t (more content not included)... Normal [facility] Office Visiton 01-21-2023 Follow-up visit [id number] Fr freda Antunez Jr. 1955 M Date Provider Department Center 01/21/2023 Sruthi-ELYSSA SOLANO CARD [facility] Family History Problem Relation Age of Onset Hypertension Mother Cancer Mother Stroke Mother Hypertension Father Aortic aneurysm Father Cancer Father Aortic aneurysm Paternal Grandfather Sudden Neg Hx Family Status - Relation Status Age at Mother Father Paternal Grandfather Neg Hx Level of Service:28838 HI OFFICE/OUTPATIENT ESTABLISHED MOD MDM 30-39 MIN Normal [facility] CNOVon 12-31-2022 CNOV Office Visit (NHMNS2 ) YOLI ANTUNEZ ([id number]) 1955 M Date Time Provider Department 12/31/22 3:15 PM SARBJIT RICHARDSON [facility] During your visit today, we recorded the following information about you: Pulse Blood pressure Weight Height 69/minute 123/77 114.8 kg 1.981 Sarbjit Dan, LINUX ARCHITECT.STARTING GATE DRIVER 12/31/2022 5:04 PM Signed Head[facility] Follow up visit December 31, 2022 [...] He was evaluated by Cardiology at the [facility] for syncopal episodes. Likely a [...] dizziness . put in in the front truck loader and unloader and helped him to the house - [...] essentially unremarkable including troponins and ECG 09/11/2022 [facility]- Cardiology - Jackie Banks NP wrote: I copied and pasted my initial consult note from [facility] date 07/20/2022 for continuity of care: Hx [...] one month ago by neurology [facility]. Recent MRA MRV. HPI: Syncope began [...] hypertension, Lab (more content not included)... Normal [facility] Office Visiton 12-28-2022 Follow-up visit [id number] Fr freda Antunez Jr. 1955 M Date Provider Department Center 12/28/2022 [facility]8-COLLIN GONSALEZ [facility] Family History Problem Relation Age of Onset Hypertension Mother Cancer Mother Stroke Mother Hypertension Father Aortic aneurysm Father Cancer Father Aortic aneurysm Paternal Grandfather Sudden Neg Hx Family Status - Relation Status Age at Mother Father Paternal Grandfather Neg Hx Level of Service:65193 HI OFFICE/OUTPATIENT ESTABLISHED MOD MDM 30-39 MIN Normal [facility] Follow Up (General Surgery)o n 12-13-2022 Follow Up (General Surgery) Diagnoses/Problems H/O hiatal hernia (V12.79) (Z87.19) Patient Discussion/Summary followup as needed Provider Impressions Patient continues to do well. He was reassured; followup as needed Chief Complaint Patient is here for follow up History of Present Zxyyvwi76-ckov-rab patient who underwent laparoscopic hiatal hernia repair [...] BY MOUTH TWICE DAILY WITH MEALS Pyridostigmine Candia 60 MG Oral TabletTAKE 1 TABLET BY [...] Oral Tablet Vitamin D (Ergocalciferol) 1.25 MG (34243 UT) Oral CapsuleTAKE 1 CAPSULE BY MOUTH [...] Muscle strain; ALBERT = N; [facility] Patient Discussion/Summary Ice pack to left abdominal [...] here for post op History of Present Ybifzje49-vhze-blb patient who underwent laparoscopic repair of paraesophageal [...] BY MOUTH TWICE DAILY WITH MEALS Pyridostigmine Candia 60 MG Oral TabletTAKE 1 TABLET BY [...] Oral Tablet Vitamin D (Ergocalciferol) 1.25 MG (03267 UT) Oral CapsuleTAKE 1 CAPSULE BY MOUTH ONCE A WEEK Vitals Vital Signs Recorded: 29Nov2022 01:43PM Height6 ft 6 in Yfnhaf595 lb BMI Szwawshuek49.24 kg/m2 BSA Calculated2.49 Physical Exam abd: soft, non-distended, tenderness over LUQ trocar site; no hernia Signatures Electronically signed by : Yossi Chen MD (more content not included)... Normal [facility] Discharge [id number] Discharge Profile2 Discharge Orders: Anticipated Discharge Date: Anticipated Discharge [id number] Hospital Providers: Provider RoleProvider Name Yossi Olguin [...] up Call to Schedule in2 weeks Phone [phone] Commentscall to make appointment Other Clinician Instructions: Other Instructions: Other Clinician InstructionsAvoid bread, salad, steak and carbonated beverages for 2 wks Electronic Signatures: Sivan Costa (LINUX ARCHITECT-STARTING GATE DRIVER) (Signed 22-Nov-2022 12:04) Authored: Discharge Orders, Provider FINAL REVIEW of Orders, Appointments, Gold [facility] Baker Chef Summary Yossi Chen) (Signed 22-Nov-2022 12:26) Authored: Discharge Orders, Provider FINAL REVIEW of Orders, Appointments, Other Clinician Instructions Last Updated: 22-Nov-2022 12:26 by Yossi Chen) [facility] Order Reconciliationon 11-22 Order Reconciliation Page 1 Discharge Reconciliation Document Reconciliation Type: Discharge requested on behalf of Yossi Chen (Physician) done by Yossi Chen) Discharge - Partial Reconciliation: 22-Nov-2022 12:05 by: Sivan Costa (LINUX ARCHITECT-[facility]) Discharge - Reconciliation: 22-Nov-2022 12:31 by: Yossi Chen) Home Medications EnteredHOME MEDICATIONS AT DISCHARGE DateReconciliation Comment/ Additional Information Aspir 81 oral delayed release tablet 1 tab(s) orally once a day ( holding for procedure ) 24-Apr-2023 17:06 Aspir 81 oral delayed release tablet [...] not required (more content not included)... Normal [facility] APTTon 11-21-2022 aPTT Coag (Bld) [Time] 34 s Normal 27 - 38 [facility] Comment on above: Result Comment: Note new reference range as of 10/09/2022 at 10:00am. Performed By: #### A PTT ####[facility] [place], [place] [id number] Activated Partial Thrombopla stin Timeon 11-21-2022 aPTT Coag (PPP) [Time] 34 s 27 - 38 -[facility] 201 DO Work Phone: Comment on [...] applied here Patient Transferred from Other Facility ([facility], [facility],etc)no Patient Identity Verified Bypatient ID Band FULL [...] AlertFor Ebola-like Symptoms: Isolate Patient and Notify Provider/Experimental Mechanic Electrical For Contact: Notify Provider/Experimental Mechanic Electrical Advance Directive: Advance Directive/DNRyes Advance Directive typeLiving Will Living Will AvailabilityLiving Will not available now Living Will Calderon Fall Screen: History of falling (immediate [...] Communicatenone Learning Preferencesaudio Cultural Considerationsnone Developmental Considerationsnone Jehovah'S Witness Considerationsnone Learning Assessment (Other Learner): Other learner availableno Depression Screen: During the past month, have you often been bothered by feeling down, depressed or hopelessno During the past month, have you often had little interest or pleasure in doing thingsno Have you had any thoughts of harming anyone elseno [place] Suicide: Risk Screen Not Applicable/Able to Answerable [...] Was this within the past 3 monthsno [place] Suicide Riskmoderate Adult Nutrition Screen: Have you [...] Spiritual Screen: Are there any cultural, spiritual, bahai practices/values/needs that are important for us to knowno CAGE: Is this an injured patient at a Trauma Center ([facility]/[place]): no Vaccinations: Vaccination - Influenza Vaccination Screen: (more content not included)... Normal [facility] CBC AND DIFFERENTIALon 11-21 % AUTOMATED IMMATURE GRAN 0.3 % Normal 0.0 - 0.9 [facility] Comment on above: Result Comment: Nataliia ture Granulocyte Count (IG) includes promyelocytes, myelocytes and metamyelocytes but does not include bands. Percent differential counts (%) should be interpreted in the context of the absolute cell counts (cells/L). Performed By: #### C BCDF #### [address] [id number] Basophils (Bld) [#/Vol] 0.04 10*3/uL Normal 0.00 - 0.10 [facility] Comment on above: Performed By: #### C BCDF #### [address] [id number] Basophils/100 WBC (Bld) 0.6 % Normal 0.0 - 2.0 [facility] Comment on above: Performed By: #### C BCDF #### [address] [id number] Eosinophils (Bld) [#/Vol] 0.27 10*3/uL Normal 0.00 - 0.70 [facility] Comment on above: Performed By: #### C BCDF #### [address] [id number] Eosinophils/100 WBC (Bld) 3.9 % Normal 0.0 - 6.0 [facility] Comment on above: Performed By: #### C BCDF #### [address] [id number] Erythrocyte distribution width (RBC) [Ratio] 13.5 % Normal 11.5 - 14.5 [facility] Comment on above: Performed By: #### C BCDF #### [address] [id number] Hematocrit (Bld) [Volume fraction] 40.1 % Low 41.0 - 52.0 [facility] Comment on above: Performed By: #### C BCDF #### [address] [id number] Hemoglobin (Bld) [Mass/Vol] 13.3 g/dL Low 13.5 - 17.5 [facility] Comment on above: Performed By: #### C BCDF #### [address] [id number] Lymphocytes (Bld) [#/Vol] 1.54 10*3/uL Normal 1.20 - 4.80 [facility] Comment on above: Performed By: #### C BCDF #### [address] [id number] Lymphocytes/100 WBC (Bld) 22.3 % Normal 13.0 - 44.0 [facility] Comment on above: Performed By: #### C BCDF #### [address] [id number] MCHC (RBC) [Mass/Vol] 33.2 g/dL Normal 32.0 - 36.0 [facility] Comment on above: Performed By: #### C BCDF #### [address] [id number] MCV (RBC) [Entitic vol] 83 fL Normal 80 - 100 [facility] Comment on above: Performed By: #### C BCDF #### [address] [id number] Monocytes (Bld) [#/Vol] 0.71 10*3/uL Normal 0.10 - 1.00 [facility] Comment on above: Performed By: #### C BCDF #### [address] [id number] Monocytes/100 WBC (Bld) 10.3 % Normal 2.0 - 10.0 [facility] Comment on above: Performed By: #### C BCDF #### [address] [id number] Neutrophils (Bld) [#/Vol] 4.33 10*3/uL Normal 1.20 - 7.70 [facility] Comment on above: Performed By: #### C BCDF #### [address] [id number] Neutrophils/100 WBC (Bld) 62.6 % Normal 40.0 - 80.0 [facility] Comment on above: Performed By: #### C BCDF #### [address] [id number] Platelets (Bld) [#/Vol] 210 10*3/uL Normal 150 - 450 [facility] Comment on above: Performed By: #### C BCDF #### [address] [id number] RBC 4.84 x10E12/L Normal 4.50 - 5.90 [facility] Comment on above: Performed By: #### C BCDF #### [address] [id number] WBC (Bld) [#/Vol] 6.9 10*3/uL Normal 4.4 - 11.3 [facility] Comment on above: Performed By: #### C BCDF #### [address] [id number] COMPREHENSIVE PANELon 2022 Albumin [Mass/Vol] 4.4 g/dL Normal 3.4 - 5.0 [facility] Comment on above: Performed By: #### C MP #### [address] [id number] ALP [Catalytic activity/Vol] 60 U/L Normal 33 - 136 [facility] Comment on above: Performed By: #### C MP #### [address] [id number] ALT [Catalytic activity/Vol] 14 U/L Normal 10 - 52 [facility] Comment on above: Result Comment: Kasandra ents treated with Sulfasalazine may generate falsely decreased results for ALT. Performed By: #### C MP #### [address] [id number] Anion gap [Moles/Vol] 14 mmol/L Normal 10 - 20 [facility] Comment on above: Performed By: #### C MP #### [address] [id number] AST [Catalytic activity/Vol] 13 U/L Normal 9 - 39 [facility] Comment on above: Performed By: #### C MP #### [address] [id number] Bilirubin [Mass/Vol] 0.3 mg/dL Normal 0.0 - 1.2 [facility] Comment on above: Performed By: #### C MP #### [address] [id number] Calcium [Mass/Vol] 7.1 mg/dL Low 8.6 - 10.3 [facility] Comment on above: Performed By: #### C MP #### [address] [id number] Chloride [Moles/Vol] 106 mmol/L Normal 98 - 107 [facility] Comment on above: Performed By: #### C MP #### [address] [id number] Creatinine [Mass/Vol] 1.38 mg/dL High 0.50 - 1.30 [facility] Comment on above: Performed By: #### C MP #### [address] [id number] GFR/1.73 sq M.predicted among non-blacks MDRD (S/P/Bld) [Vol rate/Area] 55 mL/min/{1.73_m2} Abnormal >90 [facility] Comment on above: Result Comment: CALC ULATIONS OF ESTIMATED GFR ARE PERFORMED USING THE 2020 CKD-EPI STUDY REFIT EQUATION WITHOUT THE RACE VARIABLE FOR THE IDMS-TRACEABLE CREATININE METHODS. https://jasn.asnjournals.org/content//ASN.0914811 988 Performed By: #### C MP #### [address] [id number] Glucose [Mass/Vol] 105 mg/dL High 74 - 99 [facility] Comment on above: Performed By: #### C MP #### [address] [id number] HCO3 (Bld) [Moles/Vol] 24 mmol/L Normal 21 - 32 [facility] Comment on above: Performed By: #### C MP #### [address] [id number] Potassium [Moles/Vol] 3.8 mmol/L Normal 3.5 - 5.3 [facility] Comment on above: Performed By: #### C MP #### [address] [id number] Protein [Mass/Vol] 7.2 g/dL Normal 6.4 - 8.2 [facility] Comment on above: Performed By: #### C MP #### [address] [id number] Sodium [Moles/Vol] 140 mmol/L Normal 136 - 145 [facility] Comment on above: Performed By: #### C MP #### [address] [id number] Urea nitrogen [Mass/Vol] 23 mg/dL Normal 6 - 23 [facility] Comment on above: Performed By: #### C MP #### [address] [id number] Clinical Event Note-Surgical first assistanton 11-21-2022 Clinical Event Note-technical support assistant Clinical Event: Clinical Event Note: TopicSurgical first aid instructor Details dyer assistant to dr Yossi Chen. Procedure: Laparoscopic repair of Type 3 paraesophageal hernia with Toupet wrap. Provider/Team Contact Info-Pager Fab Law PA-C [phone] Electronic Signatures: Kee Law (PAC) (Signed 21-Nov-2022 14:31) Authored: Clinical Event Note Last Updated: 21-Nov-2022 14:31 by Kee Law (PAC) Normal [facility] Complete Blood Count + Difflilly mann 11-21-2022 Basophils/100 WBC (Bld) 0.6 % 0.0 - 2.0 [facility] 201 DO Work Phone: Erythrocyte distribution width (RBC) [Ratio] 13.5 % See Below [facility] DO Work Phone: Comment on above: Reference Range: 11. 5 - 14.5 Hematocrit (Bld) [Volume fraction] 40.1 % below low threshold See Below [facility] 201 DO Work Phone: Comment on above: Reference Range: 41. 0 - 52.0 Hemoglobin (Bld) [Mass/Vol] 13.3 g/dL below low threshold See Below [facility] 201 DO Work Phone: Comment on above: Reference Range: 13. 5 - 17.5 Lymphocytes/100 WBC (Bld) 22.3 % See Below [facility] 201 DO Work Phone: Comment on above: Reference Range: 13. 0 - 44.0 MCHC (RBC) [Mass/Vol] 33.2 g/dL [facility] Below [facility] Work Phone: Comment on above: Reference Range: 32. 0 - 36.0 MCV (RBC) [Entitic vol] 83 fL 80 - 100 [facility] DO Work Phone: Monocytes/100 WBC (Bld) 10.3 % 2.0 - 10.0 [facility] 201 DO Work Phone: Neutrophils/100 WBC (Bld) 62.6 % See Below [facility] DO Work Phone: Comment on above: Reference Range: 40. 0 - 80.0 Platelets (Bld) [#/Vol] 210 10*3/uL 150 - 450 [facility] 201 DO Work Phone: RBC (Bld) [#/Vol] 4.84 {x10E12/L} See Below [facility] 201 DO Work Phone: Comment on above: Reference Range: 4.5 0 - 5.90 WBC (Bld) [#/Vol] 6.9 10*3/uL 4.4 - 11.3 [facility] id 201 DO Work Phone: Complete Blood Count + Differential 0.04 {x10E9/L} See Below [facility] 201 DO Work Phone: Comment on above: Reference Range: 0.0 0 - 0.10 Complete Blood Count + Differential 0.27 {x10E9/L} See Below [facility] 201 DO Work Phone: Comment on above: Reference Range: 0.0 0 - 0.70 Complete Blood Count + Differential 0.71 {x10E9/L} See Below [facility] 201 DO Work Phone: Comment on above: Reference Range: 0.1 0 - 1.00 Complete Blood Count + Differential 1.54 {x10E9/L} See Below [facility] 201 DO Work Phone: Comment on above: Reference Range: 1.2 0 - 4.80 Complete Blood Count + Differential 4.33 {x10E9/L} See Below [facility] 201 DO Work Phone: Comment on above: Reference Range: 1.2 0 - 7.70 Complete Blood Count + Differential 3.9 % 0.0 - 6.0 [facility] 201 DO Work Phone: Complete Blood Count + Differential 0.3 % 0.0 - 0.9 [facility] 201 DO Work Phone: Comment on above: Immature Granulocyte Count (IG) includes promyelocytes, myelocytes and metamyelocytes but does not include bands. Percent differential counts (%) should be interpreted in the context of the absolute cell counts (cells/L). Laboratory - Chemistry and C hemistry - challengeon 11-21-2022 Albumin BCP dye [Mass/Vol] 4.4 g/dL 3.4 - 5.0 [facility] 201 DO Work Phone: [phone] ALP [Catalytic activity/Vol] 60 U/L 33 - 136 [facility] 201 DO Work Phone: ALT With P-5'-P [Catalytic activity/Vol] 14 U/L 10 - 52 [facility] 201 DO Work Phone: Comment on above: Patients treated wit h Sulfasalazine may generate falsely decreased results for ALT. Anion gap [Moles/Vol] 14 mmol/L 10 - 20 -[facility] 201 DO Work Phone: AST With P-5'-P [Catalytic activity/Vol] 13 U/L 9 - 39 -[facility] 201 DO Work Phone: Bilirubin [Mass/Vol] 0.3 mg/dL 0.0 - 1.2 -[facility] 201 DO Work Phone: Calcium [Mass/Vol] 7.1 mg/dL below low threshold 8.6 - 10.3 -[facility] 201 DO Work Phone: [phone] Chloride [Moles/Vol] 106 mmol/L 98 - 107 -[facility] 201 DO Work Phone: [phone] CO2 [Moles/Vol] 24 mmol/L 21 - 32 [facility] 201 DO Work Phone: [phone] Creatinine [Mass/Vol] 1.38 mg/dL above high threshold See Below [facility] 201 DO Work Phone: Comment on above: Reference Range: 0.5 0 - 1.30 Glucose [Mass/Vol] 105 mg/dL above high threshold 74 - 99 [facility] 201 DO Work Phone: Potassium [Moles/Vol] 3.8 mmol/L 3.5 - 5.3 [facility] 201 DO Work Phone: Protein [Mass/Vol] 7.2 g/dL 6.4 - 8.2 [facility] 201 DO Work Phone: Sodium [Moles/Vol] 140 mmol/L 136 - 145 [facility] 201 DO Work Phone: Urea nitrogen [Mass/Vol] 23 mg/dL 6 - 23 [facility] 201 DO Work Phone: Laboratory - Coagulationon 0 11-21-2022 INR Coag (PPP) [Relative time] 1.0 {INR} 0.9 - 1.1 [facility] 201 DO Work Phone: PT Coag (PPP) [Time] 11.7 s 9.8 - 12.8 [facility] 201 DO Work Phone: Comment on above: Note new reference andrew burton as of 10/09/2022 at 10:00am. No Panel Informationon 11-21 [facility] 201 DO Work Phone: 55 {mL/min/1.73m2} Abnormal >90 [facility] 201 DO Work Phone: Comment on above: CALCULATIONS OF FLORENTIN MATED GFR ARE PERFORMED USING THE 2020 CKD-EPI STUDY REFIT EQUATION WITHOUT THE RACE VARIABLE FOR THE IDMS-TRACEABLE CREATININE METHODS.https://jasn.asnjournals.org/content/early/ASN .4534455751 PT/INRon 11-21-2022 PT Coag (PPP) [Time] 11.7 s Normal 9.8 - 12.8 [facility] Comment on above: Result Comment: Note new reference range as of 10/09/2022 at 10:00am. Performed By: #### P TINR ####[facility] [place], [place] [id number] PT, INR 1.0 Normal 0.9 - 1.1 [facility] Comment on above: Performed By: #### P TINR ####[facility] [place], [place] [id number] Patient Profile - Adult v2on 11-21-2022 Patient [...] applicable(1) Weight in kg113.7 kilogram(s) Weight in egx350.6 pound(s) Weight Methodstated Scale Typebed Height in [...] Profile - Preop v3 19-Nov-2022 11:56 Normal [facility] Surgical Pathology Depar tmenton 11-21-2022 [facility] Surgical Pathology Department Name HARMONY YOLI Tera ISIDRO Pathologist: KAITLYN LAW MD Date of Procedure: 11/21/2022 Date Received: 11/21/2022 Date Reported 12/03/2022 Submitting Physician: YOSSI CHEN MD Location: [facility] Copy To/Referring/Attending: RADHA BURRIS MD Other External # FINAL DIAGNOSIS A. HIATAL HERNIA SAC: -- BENIGN ADIPOSE TISSUE AND CONTAINED BENIGN LYMPH NODES. Electronically Signed Out By KAITLYN LAW MD/AWP By the signature on this report, the individual or group listed as making the Final Interpretation/Diagnosis certifies that they have reviewed this case. Diagnostic interpretation performed at [facility] [address] [place] [address] Clinical History: Physician Contact Number: [phone] Fixative (A): Formalin Clinical Diagnosis History HIATAL HERNIA. Specimens Submitted As: A: HERNIA SAC Gross Description: Received in formalin, labeled with the patient's name and hospital number and hernia sac , are multiple segments of yellow fibroadipose soft tissue aggreagting to 8.0 x 5.0 x 2.5 cm. Areas of induration, nodularity, hemorrhage or necrosis are not seen. House Registry Rn sections are submitted in one cassette. LMP lmp/11/27/2022 [facility] Department of Pathology [address] [place] [address] Normal [facility] Comment on above: Performed By: #### [facility] #### [facility] Surgical Pathology Department [address] [place] [address] Patient Profile - Preop v3on 11-19-2022 Patient Profile - Preop v3 Patient Profile - Preop: Initial Info: Patient DemographicsName: YOLI ANTUNEZ Date: 1955 Address: [address] [place] [address], [place], [id number] Date/Time [id number] 12:28 Primary Phone [phone] Instructions Givenappropriate clothing, bring glasses/contacts case, 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 (procedure may be cancelled if no tow motor driver), center location, insurance information, remove jewerly/piercings, time to arrive Prep Instructions Reviewedn/a Instructions/Prep CommentNPO after midnight - bring event recorder info/ID card day of procedure How to be AddressedFred Spoken Language PreferredEnglish Source of Informationpatient Stated Reason for Admissionhiatal hernia repair Primary Contact Name and Numberjames Smith [phone] Limitations on Visitors/Phone Callsnone Medications Brought to Hospitalno General Health: Weight in kg113.5 kilogram(s) Weight in rbe445.2 pound(s) Weight Methodactual (measured) Scale Typestanding Height [...] recorder- right side of chest- checked at [facility] kidney stone watchman device cataract detached retina [...] Symptoms/Conditionsdysrhyth dhruv; hypertension Cardiovascular Management Strategiesmedication therapy; 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 Cardiovascular Symptoms/Conditions Commentcardiac ablation for atrial fib/ [...] Withspouse Living Arrangementshouse Resource/Environmental Concernsnone Anticipated Transition [place] [facility] Anticipated at Transitionnone Tobacco Use: Tobacco Useyes Tobacco Typecigarettes Number of Packs per Day2 Number of yrs15 Pack yrs30 Tobacco Commentquit smoking 1986 Pre-op Checklist: Arrival [id number] Arrival Time05:23 Procedure TypeLaparoscopic Hiatal Hernia repair with Toupet wrap possible feeding tube and upper endoscopy NPOyes Last Food [id number] 22:00 Last Clear Fluid [id number] 22:00 ID Band On Patientpatient ID (name), [...] Allergies, Ho (more content not included)... Normal [facility] CNPLaura 11-16-2022 CNPN Telephone (NHMNS2) YOLI ANTUNEZ ([id number]) 1955 M Date Time Provider Department 11/16/22 SARBJIT RICHARDSON [facility] During your visit today, we recorded the following information about you: Jessica Scott 11/16/2022 5:56 PM Signed Received faxed report of medical records done at . Uploaded via [employer], will be available in [employer] for review shortly. Allergies As of Date: 11/16/2022 Noted Allergy Reaction PENICILLINS 09/12/2000 16 - Unknown TIKOSYN (DOFETILIDE) 07/26/2022 14 - Other: See Comments Comments: Aphasia, dizzy, muscle cramps VANCOMYCIN 07/26/2022 10 - Anaphylaxis Date Reviewed: 10/18/2022 Reviewed by: Michaela Polo, RN - Fully Assessed Reason for Visit: Received Outside Medical Records [[id number]] Cmt: Prescriptions as of 11/29/2022 - ergocalciferol [...] Status:Closed by JESSICA SCOTT on 11/29/22 Normal [facility] Initial Visit (General Surge ry)on 11-12-2022 Initial [...] advance to a soft diet. Avoid bread [place] steak and carbonated beverage for 2 weeks. Chief Complaint Patient referred by Dr. Daily for a hiatal hernia consult. History of Present [age]qs47 y/o male patient referred for symptomatic hiatal [...] waking up feeling unrefreshed, excessive daytime fatigue. [place] Sleepiness Scale Score is 16 /24. Fatigue Severity Scale Score is 54 /63. Snoring VAS 10 Sleep study histories: (personally reviewed raw data [...] CPAP ( (more content not included)... Normal [facility] Order Reconciliationon 10-15 Order Reconciliation Page 1 [...] 1.25 milligram(s) orally once a day Normal [facility] Patient Profile - Preop v3on 10-12-2022 Patient Profile - Preop v3 Patient Profile - Preop: Initial Info: Patient DemographicsName: YOLI ANTUNEZ Date: 1955 Address: [address] [place] [address], [address] [place] [address] Primary Phone [phone] Instructions Giventime to arrive, Arrival time of 0930 for surgery time of 1100 How to be Addressedfrederick Spoken Language PreferredEnglish Stated Reason for Admissionsleep study Primary Contact Name and Numbersee facesheet Medications Brought to Hospitalno General Health: Weight in kg116.6 kilogram(s) Weight in ieu426 pound(s) Height in feet6 feet Height in inches5.95 inch(es) Height in cm197.9 centimeter(s) BMI (kg/m2)29.771 square meter Patient or Family Member Reaction to Anesthesiapatient reaction Patient Reaction to Anesthesiaawakening delayed Blood Avoidance/Restrictionsnone Previous Transfusion Reactionnot applicable Health Mgmt: Symptoms/Conditions Managed at Homecardiovascular; endocrine Barriers to Managing Healthnone Relationship/Environ: Lives Withspouse Living Arrangementshouse Resource/Environmental Concernsnone Anticipated Transition [place] [facility] Anticipated at Transitionnone Tobacco Use: Tobacco Useno Pre-op Checklist: Arrival [id number] Arrival Time09:59 Procedure Typesleep study NPOyes Last Food Vhzopf59-Pur-3282 00:00 Last Clear Fluid Jinwog53-Ioy-8932 00:00 ID Band On Patientpatient ID (name), [...] Tobacco Use, Pre-op Checklist, Additional Information Lupe Villarreal (RN) (Signed 12-Oct-2022 13:08) Authored: Initial Info, Additional Information Last Updated: 15-Oct-2022 10:00 by Letty Godfrey (RN) Normal [facility] Electrocardiogram 12 Leadon 10-10-2022 Electrocardiogram 12 Lead Ventricular Rate 70 Atrial Rate 70 P-R Interval 194 QRS Duration 78 Q-T Interval 420 QTC Calculation(Bazett) 453 P [place] 38 R [place] 13 T [place] 66 QRS Count 12 Q Onset 222 P Onset 125 P Offset 161 T Offset 432 QTC Fredericia 442 Diagnosis Class Normal Diagnosis Normal sinus rhythm Normal ECG No previous ECGs available Confirmed by Aliya Candelaria ([id number]) on 10/14/2022 8:34:16 PM Normal [facility] No Panel Informationon 10-10 [email or web address]?R etrieveTestByDateTime?Patie etWD=[email or web address]&Date= 023&Time=14%3a24%3a36%3a00& TestType=ECG&Site=10&Output Type=PDF&Ext=PDF [facility] Work Phone: Normal sinus rhythm [facility] Work Phone: Normal [facility] Work Phone: [phone] 1 [facility] Work Phone: [phone] 1 [facility] Work Phone: [phone] 1 [facility] Work Phone: [phone] 1 [facility] Work Phone: [phone] 1 [facility] Work Phone: 12 1 [facility] Work Phone: 66 1 [facility] Work Phone: 13 1 [facility] Work Phone: 38 1 [facility] Work Phone: [phone] 1 [facility] Work Phone: [phone] 1 [facility] Work Phone: 78 1 [facility] Work Phone: [phone] 1 [facility] Work Phone: 70 1 [facility] Work Phone: Established Visit (Otolaryng ology)on [...] symptoms appear more central. Sees [facility]y [facility] who suspects he may have autonomic dysfunction - F/u with [facility] neurology as scheduled 2) ADA, CPAP intolerance [...] obtained from YOLI HARMONY on this date, 09/25/2022 02:30 PM , for a telehealth visit. Dysphagia follow-up History of Present Fslokdx70 year old man with history of intermittnet [...] more in his throat. Seeing neurology at [facility] for his intermittent aphasia. Still awaiting manometry [...] following interpretation. (more content not included)... Normal [facility] Established [...] assist you through your ENT care at [facility]. Dr. Perrin is an ENT surgeon who specializes in voice, airway and swallowing issues. This means that she specializes in taking care of patients with complex voice, airway and swallowing problems. Dr. Perrin's office number is [phone]. Please use this number to contact her and her care team regardless of which office you use to access care. This number is the most direct way to communicate with all the members of the care team. Dr. Perrin?s executive legal secretary answers the office phone from 9am-4pm Mon-Sat. Call [phone] and push 2. She can help you with scheduling of appointments, general questions and information. You may need to leave a message if she is helping another patient. In this case, someone from the team will call you back the same day if you leave your message before 3pm, or the next business morning. Dr. Perrin?s nurse and can be reached by calling [phone]. We make every effort to return phone calls the same day. If you are in need of urgent assistance after hours, please call [phone] and ask for ENT continuous wave operator. Dr. Perrin works closely with speech therapists as they work together to help solve your issues with speech and swallowing. You may see a speech therapist during your appointment if Dr. Perrin feels this is needed. If you need to reach speech therapy to talk with a therapist or to schedule an appointment, please call [phone]. Others who may be included in your care are dieticians, social workers, audiologists, neurologists, and physical therapists. Dr. Perrin will provide these referrals as needed. Please let her know if you would like to request a specific referral. For your convenience, Dr. Perrin sees patients at different [facility] locations including the [facility] at [facility], and [facility] at the main campus of [facility]. While we try to make your [...] discuss his care with Dr. Long at [facility] to understand current treatment plans 2. He [...] obtained from YOLI HARMONY on this date, 09/24/2022 08:30 AM , [...] Michaud. He (more content not included)... Normal [facility] Established Visit (Otolaryngology) No report was sent Normal [facility] s No Panel Informationon 09-13 [email or web address]?={[email or web address] [id number] [email or web address]} [facility] Work Phone: [facility] Work Phone: -Otolaryngo muscogeeyChi [facility] 4100 Work Phone: [facility] Surgical Pathology Depar tmenton 09-13-2022 [facility] Surgical Pathology Department Name YOLI ANTUNEZ Tera ISIDRO Pathologist: LIZZ LINN MD Date of Procedure: 09/13/2022 Date Received: 09/13/2022 Date Reported 09/26/2022 Submitting Physician: RUBY DAILY M.D. Location: [place] Other External # FINAL DIAGNOSIS A. GE [...] reviewed this case. Diagnostic interpretation performed at [facility] [address] [place] [address] Clinical History: R/O Esophagitis and metaplasia Specimens Submitted As: A: GE JUNCTION COLD FORCEPS Gross Description: Received in formalin, labeled with the patient's name and hospital number and A , are 2 fragments of martin, soft tissue aggregating to 0.5 x 0.2 x 0.2 cm. The specimen is submitted in toto in one cassette. [facility] sbs/09/21/2022 [facility] Department of Pathology [address] [place], [place] [address] Normal [facility] Comment on above: Performed By: #### U HCS #### [facility] Surgical Pathology Department [address] [place] [address] Upper GI endoscopyon 023 Upper GI endoscopy PATIENTNAME Patient Name: Yoli Antunez EXAMDATE Procedure Date: 09/13/2022 3:41 PM PATIENTID PATIENTACCOUNTNUM PATIENTDOB Date of : 1955 ADMITTYPE Admit Type: Outpatient PATIENTROOM Site: [facility] Procedure Room 2 ETHNICITY Ethnicity: Not or RACE Race: White PROVDR Attending MD: Ruby Daily MD, [id number] ENDOPROCEDURENAME Procedure: Upper GI endoscopy INDICATION Indications: Dysphagia, cricopharyngeal web PRIMARYPROVIDER Providers: Ruby Daily MD (Doctor), Vale Mercado RN (Nurse), Sabina Atkins, Log Cooker EDREFPROVIDER Referring: Ruby Daily MD CURRENT_MEDS Medicines: [...] medications. CPT_CODES Procedure Code(s): --- Professional --- 02080, Moderate sedation services provided by the same physician or other qualified health career center director performing the diagnostic or therapeutic service that the sedation supports, requiring the presence of an independent trained observer to assist in the monitoring of the patient's level of consciousness and physiological status; initial 15 minutes of intraservice time, patient age 5 years or older [address], Unlisted procedure, esophagus ICD_CODES Diagnosis Code(s): --- Professional --- J38.3, O (more content not included)... Normal [facility] SURGICAL PATHOLOGY RESULTSon 09-06-2022 Pathology Report Name [...] ABNORMALITIES. Electronically Signed Out By MAYELIN AVILEZ MD/[facility] By the signature on this report, the individual or group listed as making the Final Interpretation/Diagnosis certifies that they have reviewed this case. Diagnostic interpretation performed at [facility] [address] [facility] [address] Clinical History: A) R/O H.pylori B) R/O [...] in toto in one cassette. DMB dmb/09/04/2022 [facility] Department of Pathology [address] [place] [address] Established Visit (Otolaryng ology)on 09-04-2022 Established Visit [...] telehealth visit. Dysphagia follow-up History of Present [age]zcbyhe46 year old man with history of dysphagia [...] inflammatory na (more content not included)... Normal [facility] EGDon 08-30-2022 Beth Diego MD - 10/15/2022 Patient Name: Yoli Antunez Procedure Date: 08/30/2022 7:32 AM Date of : 1955 Admit Type: Outpatient Site: [facility] Procedure Room 5 Ethnicity: Not or Race: White Attending MD: ELISEO Williamson, [id number] Procedure: Upper GI endoscopy Indications: Dysphagia for 5 years to both liquids and solids Patient Profile: This is a 67 year old male. Refer to note in patient chart for documentation of history and physical. Providers: ELISEO Williamson (Doctor), Jaylen Lo, RN (Nurse), Florentino De Dios, Log Cooker, Krisitn Mcdaniels RN (Nurse) Referring: Radha Burris MD [...] specimen was done by the nurse and agricultural engineering technician using the patient's name and medical record number. Estimated blood loss was minimal. A single 3 mm nodule was found at the gastroesophageal junction, 39 cm from the incisors. Biopsies were taken with a cold forceps for histology. Verification of patient identification for the specimen was done by the nurse and agricultural engineering technician using the patient's name and medical [...] specimen was done by the nurse and agricultural engineering technician using the patient's name and medical [...] right naris un (more content not included)... [facility] Work Phone: Radiology Study observation (narrative) [facility] Work Phone: EGDOrdered By: Beth Diego on 08-30-2022 [facility] Work Phone: No Panel Informationon 08-30 Name BROOKE ANTUNEZ GHASSAN Haley JR. Pathologist: MAYELIN AVILEZ MD Date of Procedure: 08/30/2022 Date [facility] Work Phone: [email or web address] [email or web address] [email or web address]?={[email or web address] [id number]} [facility] Work Phone: [facility] [...] 1.25 milligram(s) orally once a day Normal [facility] Surgical Pathology Depar tmenton 08-30-2022 [facility] Surgical Pathology Department Name YOLI ANTUNEZ JRAmarjit Pathologist: MAYELIN AVILEZ MD Date of Procedure: [...] ABNORMALITIES. Electronically Signed Out By MAYELIN AVILEZ MD/[facility] By the signature on this report, the individual or group listed as making the Final Interpretation/Diagnosis certifies that they have reviewed this case. Diagnostic interpretation performed at [address] [place] [address] Clinical History: A) R/O H.pylori B) R/O [...] in toto in one cassette. DMB dmb/09/04/2022 [facility] Department of Pathology [address] [place] [address] Normal [facility] Comment on above: Performed By: #### U [facility] #### [facility] Surgical Pathology Department [address] [place] [address] Upper GI endoscopyon 023 Upper GI endoscopy PATIENTNAME Patient Name: Yoli Antunez EXAMDATE Procedure Date: 08/30/2022 7:32 AM PATIENTID PATIENTACCOUNTNUM PATIENTDOB Date of : 1955 ADMITTYPE Admit Type: Outpatient PATIENTROOM Site: [facility] Procedure Room 5 ETHNICITY Ethnicity: Not or RACE Race: White PROVDR Attending MD: ELISEO Williamson, [id number] ENDOPROCEDURENAME Procedure: Upper GI endoscopy INDICATION Indications: Dysphagia for 5 years to both liquids and solids PTPROFILE Patient Profile: This is a 67 year old male. Refer to note in patient chart for documentation of history and physical. PRIMARYPROVIDER Providers: ELISEO Williamson (Doctor), Jaylen Lo RN (Nurse), Florentino De Dios, Log Cooker, Kristin Mcdaniels RN (Nurse) EDREFPROVIDER Referring: Radha [...] specimen was done by the nurse and agricultural engineering technician using the patient's name and medical record number. Estimated blood loss was minimal. A single 3 mm nodule was found at the gastroesophageal junction, 39 cm from the incisors. Biopsies were taken with a cold forceps for histology. Verification of patient identification for the specimen was done by the nurse and agricultural engineering technician using the patient's name and medical [...] specimen was done by the nurse and agricultural engineering technician using the patient's name and medical [...] prepyloric re (more content not included)... Normal [facility] Established Visit (Otolaryng ology)on 08-17-2022 Established Visit [...] waking up feeling unrefreshed, excessive daytime fatigue. [place] Sleepiness Scale Score is 16 /24. Fatigue [...] CPAP; however, (more content not included)... Normal [facility] Tobacco Screening.on 023 Adult depression screening assessment No [facility] 302 Work Phone: Fall risk assessment a) No falls within the last year [facility] Work Phone: Tobacco use status CPHS b) No [facility] Work Phone: TELECOMMUNICATION SYSTEMS DESIGNER (Progress Note)on 2022 TELECOMMUNICATION SYSTEMS DESIGNER (Progress Note) Therapy Diagnosis Assessed Dysphagia, oropharyngeal [...] to doctors? appointments. Primary Language for learning: Lao. Insurance Insurance reviewed Visit number: 3 Onset Date: 2022 Medicare Certification Period: Beginnin2022 Endin2022 Subjective Living Environment: home Patient arrival: independent Patient alert and ready to participate in telehealth visit this date. 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 Patient will safety tolerate the [...] verbalized understanding and agreement: yes CPT Code 60152 Treatment of swallowing dysfunction and/or oral function for feeding Signatures Electronically signed by : Yoanna Quigley CCC-TELECOMMUNICATION SYSTEMS DESIGNER; Aug 13 2022 3:44PM EST (Author) Normal [facility] GI ESOPHAGRAMon 08-10-2022 GI ESOPHAGRAM Patient Name: YOLI ANTUNEZ STUDY: GI ESOPHAGRAM; ; 08/10/2022 1:49 pm INDICATION: assess motility, r/o achalasia, assess mass/lesions R13.12: Dysphagia, oropharyngeal phase. COMPARISON: None. ACCESSION NUMBER(S): [id number] ORDERING CLINICIAN: RUBY DAILY TECHNIQUE: Fluoroscopic guided single and double contrast barium esophagram. FINDINGS: Glass Vial Filler view of the chest, abdomen shows loop [...] of this study. Electronically signed by: JAE SOTUH MD Normal [facility] Radiologyon 08-10-2022 XR Esophagus Views W contrast PO Normal [facility] Work Phone: Established Visit (Otolaryng ology)on 07-31-2022 [...] a telehealth visit. Swallow History of Present Hniezlu16 year old man with history of dysphagia [...] 20 MG (more content not included)... Normal [facility] Tobacco Screening.on 023 Adult depression screening assessment No [facility]tolaryn go [facility] Work Phone: Fall risk assessment b) One or more fall s in the last year [facility] Work Phone: Tobacco use status CPHS b) No [facility] Work Phone: TELECOMMUNICATION SYSTEMS DESIGNER (Progress Note)on 2022 TELECOMMUNICATION SYSTEMS DESIGNER (Progress Note) No report was sent [facility] TELECOMMUNICATION SYSTEMS DESIGNER (Progress Note) Therapy Diagnosis Assessed Dysphagia, oropharyngeal [...] to doctors? appointments. Primary Language for learning: Lao. Insurance Insurance reviewed Visit number: 2 Onset Date: 2022 Medicare Certification Period: Beginnin2022 Endin2022 Subjective Living Environment: home Patient arrival: independent Patient alert and ready to participate in telehealth visit this date. Objective Progress to date: [facility] goals: 1. 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 COMPARISON: None. ACCESSION NUMBER(S): [id number] ORDERING CLINICIAN: RANJANA PERRIN TECHNIQUE: MBSS completed. Informed verbal consent obtained prior to completion of exam. Trials of thin, nectar thick, honey thick, puree, soft-solids, and regular solids given. Fluoroscopy time : 3 minutes, 2 seconds. TELECOMMUNICATION SYSTEMS DESIGNER: Osmel Lozano M.S., [facility]-TELECOMMUNICATION SYSTEMS DESIGNER Phone/Pager: Can be contacted via [employer] or SPEECH FINDINGS: Reason for referral: A [...] home program 2-3 times per day. 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 goals: Patient will be able to tolerate [...] regarding the esophageal phase of the swallow. TELECOMMUNICATION SYSTEMS DESIGNER impressions with severity rating: Patient presents with [...] nectar thi (more content not included)... Normal [facility] No Panel Informationon 07-18 Normal [facility] Voice Work Phone: Swallow Evaluation v2-Modifi ed Barium Swallow, SLPon 07-18-2022 Swallow Evaluation v2-Modified Barium Swallow, TELECOMMUNICATION SYSTEMS DESIGNER Rehab: Info: Time IN11:05 Time OUT11:55 Total Treatment Rywsguy23 Evaluation TypeModified Barium Swallow, TELECOMMUNICATION SYSTEMS DESIGNER Impression: Assessment (Swallow Eval)TELECOMMUNICATION SYSTEMS DESIGNER impressions with severity rating: [Patient presents with [...] of the EMR/AEMR Electronic Signatures: Osmel Lozano (TELECOMMUNICATION SYSTEMS DESIGNER) (Signed 18-Jul-2022 14:17) Authored: Info, Impression Last Updated: 18-Jul-2022 14:17 by Osmel Lozano (TELECOMMUNICATION SYSTEMS DESIGNER) [facility] Established Visit (Otolaryng ology)on 07-17-2022 Established [...] assist you through your ENT care at [facility]. Dr. Perrin is an ENT surgeon who specializes in voice, airway and swallowing issues. This means that she specializes in taking care of patients with complex voice, airway and swallowing problems. Dr. Perrin's office number is [phone]. Please use this number to contact her and her care team regardless of which office you use to access care. This number is the most direct way to communicate with all the members of the care team. Dr. Perrin?s executive legal secretary answers the office phone from 9am-4pm Mon-Fri. Call [phone] and push 2. She can help you with scheduling of appointments, general questions and information. You may need to leave a message if she is helping another patient. In this case, someone from the team will call you back the same day if you leave your message before 3pm, or the next business morning. Dr. Perrin?s nurse and can be reached by calling [phone]. We make every effort to return phone calls the same day. If you are in need of urgent assistance after hours, please call [phone] and ask for ENT continuous wave operator. Dr. Perirn works closely with speech therapists as they work together to help solve your issues with speech and swallowing. You may see a speech therapist during your appointment if Dr. Perirn feels this is needed. If you need to reach speech therapy to talk with a therapist or to schedule an appointment, please call [phone]. Others who may be included in your care are dieticians, social workers, audiologists, neurologists, and physical therapists. Dr. Perrin will provide these referrals as needed. Please let her know if you would like to request a specific referral. For your convenience, Dr. Perrin sees patients at different [facility] locations including the [facility] at [facility], and [facility] [place] at the [facility] While we try to make your appointments [...] All medical record entries made by the Nishiblilly were at my direction and personally dictated [...] on Omeprazole (more content not included)... Normal [facility] Tobacco Screening.on 023 Adult depression screening assessment No MG-Otolaryn go [facility] 4100 Work Phone: Fall risk assessment b) One or more fall s in the last year MG-Otolaryngo [facility] 4100 Work Phone: Tobacco use status CPHS b) No -Otolaryngo [facility] 4100 Work Phone: BNPon 06-04-2022 Natriuretic peptide B (Bld) [Mass/Vol] 182.0 pg/mL Normal <=900.0 [facility] Comment on above: Performed By: #### H STROPN #### [facility] [address] [place] [address] Dr. Kulwant Brennan CARDIAC MAYELIN ADMITon 023 CK [Catalytic activity/Vol] 86 U/L Normal 39-308 [facility] Comment on above: Performed By: #### L ACT #### [facility] [address] [place] [address] [address] Kulwant Brennan CK.MB [Mass/Vol] 0.84 ng/mL Normal <=3.60 [facility] Comment on above: Performed By: #### L ACT #### [facility] [address] [place] [address] Dr. Kulwant Brennan HSTROP 4.6 pg/mL Normal 4.0-76.1 [facility] Comment on above: Result Comment: CUT- OFF POINTS HAVE BEEN ESTABLISHED BASED ON THE FOURTH UNIVERSAL DEFINITIONS OF MYOCARDIAL INFARCTION. THE UPPER REFERENCE LIMIT (URL) OF TROPONIN, DEFINED THE 99TH PERCENTILE OF cTnI DISTRIBUTION IN A REFERENCE POPULATION, HAS BEEN CONFIRMED THE DECISION THRESHOLD FOR FL DIAGNOSIS. Performed By: #### L ACT #### [facility] [address] [place] [address] Dr. Kulwant Brennan EFRAIN 52 ng/mL Normal 16-96 [facility] Comment on above: Performed By: #### L ACT #### [facility] [address] [place] [address] Dr. Kulwant Brennan CBC AUTO DIFFon 06-04-2022 BASO # 0.1 103/ul Normal 0.0-0.1 [facility] Comment on above: Performed By: #### L ACT #### [facility] [address] [place] [address] Dr. Kulwant Brennan Basophils/100 WBC (Bld) 0.5 % Normal 0.2-2.0 [facility] Comment on above: Performed By: #### L ACT #### [facility] [address] [place] [address] Dr. Kulwant Brennan EO # 0.2 103/ul Normal 0.0-0.7 [facility] Comment on above: Performed By: #### L ACT #### [facility] [address] [place] [address] Dr. Kulwant Brennan Eosinophils/100 WBC (Bld) 2.6 % Normal 0.9-7.0 [facility] Comment on above: Performed By: #### L ACT #### [facility] [address] [place] [address] Dr. Kulwant Brennan Erythrocyte distribution width (RBC) [Ratio] 15.0 % Normal 11.0-15.0 [facility] Comment on above: Performed By: #### L ACT #### [facility] [address] [place], [place] [id number] Dr. Kulwant Brennan Hematocrit (Bld) [Volume fraction] 42.3 % Normal 42.0-54.0 [facility] Comment on above: Performed By: #### L ACT #### [facility] [address] [place] [address] Dr. Kulwant Brennan Hemoglobin (Bld) [Mass/Vol] 14.0 g/dL Normal 14.0-18.0 [facility] Comment on above: Performed By: #### L ACT #### [facility] [address] [place] [address] Dr. Kulwant Brennan IG # 0.10 10e3/ul Critically high 0.00-0.03 [facility] Comment on above: Performed By: #### L ACT #### [facility] [address] [place] [address] Dr. Kulwant Brennan IG % 1.1 % Critically high 0.0-0.5 [facility] Comment on above: Performed By: #### L ACT #### [facility] [address] [place] [address] Dr. Kulwant Brennan LYMPH # 2.7 103/ul Normal 1.2-3.8 [facility] Comment on above: Performed By: #### L ACT #### [facility] [address] [place] [address] Dr. Kulwant Brennan Lymphocytes/100 WBC (Bld) 29.1 % Normal 20.5-60.0 [facility] Comment on above: Performed By: #### L ACT #### [facility] [address] [place] [address] Dr. Kulwant Brennan MANUAL DIFF REQ NO Normal [facility] Comment on above: Performed By: #### L ACT #### [facility] [address] [place] [address] Dr. Kulwant Brennan MCH (RBC) [Entitic mass] 27.0 pg Normal 25.9-34.0 [facility] Comment on above: Performed By: #### L ACT #### [facility] [address] [place] [address] Dr. Kulwant Brennan MCHC (RBC) [Mass/Vol] 33.1 g/dL Normal 29.9-35.2 [facility] Comment on above: Performed By: #### L ACT #### [facility] [address] [address] [address] Kulwant Brennan MCV (RBC) [Entitic vol] 81.5 fL Normal 80.0-94.0 [facility] Comment on above: Performed By: #### L ACT #### [facility] [address] [address] [address] Kulwant Brennan MONO # 1.0 103/ul Critically high 0.3-0.8 [facility] Comment on above: Performed By: #### L ACT #### [facility] [address] [address] [address] Kulwant Brennan Monocytes/100 WBC (Bld) 10.5 % Normal 1.7-12.0 [facility] Comment on above: Performed By: #### L ACT #### [facility] [address] [address] [address] Kulwant Brennan NEUT # 5.1 103/ul Normal 1.4-6.5 [facility] Comment on above: Performed By: #### L ACT #### [facility] [address] [address] [address] Kulwant Brennan Neutrophils/100 WBC (Bld) 56.2 % Normal 43.0-75.0 [facility] Comment on above: Performed By: #### L ACT #### [facility] [address] [address] [address] Kulwant Brennan Platelet mean volume (Bld) [Entitic vol] 10.0 fL Normal 9.5-13.5 [facility] Comment on above: Performed By: #### L ACT #### [facility] [address] [address] [address] Kulwant Brennan PLT 251 103/ul Normal 150-450 [facility] Comment on above: Performed By: #### L ACT #### [facility] [address] [address] [address] Kulwant Brennan RBC 5.19 106/ul Normal 4.70-6.10 [facility] Comment on above: Performed By: #### L ACT #### [facility] [address] [place], [place] [address] Dr. Kulwant Brennan WBC 9.1 103/ul Normal 4.0-11.0 [facility] Comment on above: Performed By: #### L ACT #### [facility] [address] [place], [place] [address] STROKE HEAD WOon [...] CONNER TANG Date: 2022-06-04 07:16 Normal [facility] Covid-19 PCR (CVDTB)on 05-23 SARS-CoV-2 (COVID-19) RNA MIKE+probe Ql (Unsp spec) Not detected Normal NOT DETECTED [facility] Comment on above: Result Comment: When [...] for this test is supported by the Clinical Business Manager of Health and Human Service's declaration that [...] used). Performed By: #### H STROPN #### [facility] [address] [place] [address] Dr. Kulwant Brennan D-DIMERon 06-04-2022 D-DIMER 0.38 mg/L FEU Normal <=0.59 [facility] Comment on above: Performed By: #### D DIM #### [facility] [address] [place] [address] Dr. Kulwant Brennan D-DIMER COMMENTS SEE BELOW Normal [facility] Comment on above: Result Comment: Incr eases [...] hospitalization. Performed By: #### D DIM #### [facility] [address] [place] [address] Dr. Kulwant Brennan PROF 14(COMP METB)on 023 Albumin [Mass/Vol] 4.1 g/dL Normal 3.4-5.0 [facility] Comment on above: Performed By: #### H STROPN #### [facility] [address] [place] [address] Dr. Kulwant Brennan Albumin/Globulin [Mass ratio] 1.1 {ratio} Normal [facility] Comment on above: Performed By: #### H STROPN #### [facility] [address] [place] [address] Dr. Kulwant Brennan ALP [Catalytic activity/Vol] 78 U/L Normal 46-116 [facility] Comment on above: Performed By: #### H STROPN #### [facility] [address] [address] [address] Kulwant Brennan ALT [Catalytic activity/Vol] 26 U/L Normal 16-63 [facility] Comment on above: Performed By: #### H STROPN #### [facility] [address] [address] [address] Kulwant Brennan Anion gap [Moles/Vol] 16.3 mmol/L Normal [facility] Comment on above: Performed By: #### H STROPN #### [facility] [address] [address] [address] Kulwant Brennan AST [Catalytic activity/Vol] 18 U/L Normal 15-37 [facility] Comment on above: Performed By: #### H STROPN #### [facility] [address] [address] [address] Kulwant Brennan Bilirubin [Mass/Vol] 0.4 mg/dL Normal 0.2-1.0 [facility] Comment on above: Performed By: #### H STROPN #### [facility] [address] [address] [address] Kulwant Brennan Calcium [Mass/Vol] 8.4 mg/dL Critically low 8.5-10.1 [facility] Comment on above: Performed By: #### H STROPN #### [facility] [address] [address] [address] Kulwant Brennan Chloride [Moles/Vol] 104 mmol/L Normal 98-107 [facility] Comment on above: Performed By: #### H STROPN #### [facility] [address] [address] [address] Kulwant Brennan CO2 [Moles/Vol] 24.8 mmol/L Normal 21.0-32.0 [facility] Comment on above: Performed By: #### H STROPN #### [facility] [address] [address] [address] Kulwant Brennan Creatinine [Mass/Vol] 1.52 mg/dL Critically high 0.70-1.30 [facility] Comment on above: Performed By: #### H STROPN #### [facility] [address] [address] [address] Kulwant Brennan EGFR-AF ECUADOREAN 55 mL/min/1.73m2 Critically low >=60 [facility] Comment on above: Performed By: #### H STROPN #### [facility] [address] [address] [address] Kulwant Brennan EGFR-NON AF ECUADOREAN 46 mL/min/1.73m2 Critically low >=60 [facility] Comment on above: Performed By: #### H STROPN #### [facility] [address] [address] [address] Kulwant Brennan Globulin (S) [Mass/Vol] 3.6 g/dL Normal [facility] Comment on above: Performed By: #### H STROPN #### [facility] [address] [address] [address] Kulwant Brennan Glucose [Mass/Vol] 102 mg/dL Normal 74-106 [facility] Comment on above: Performed By: #### H STROPN #### [facility] [address] [address] [address] Kulwant Brennan Potassium [Moles/Vol] 4.1 mmol/L Normal 3.5-5.1 [facility] Comment on above: Performed By: #### H STROPN #### [facility] [address] [address] [address] Kulwant Brennan Protein [Mass/Vol] 7.7 g/dL Normal 6.4-8.2 [facility] Comment on above: Performed By: #### H STROPN #### [facility] [address] [address] [address] Kulwant Brennan Sodium [Moles/Vol] 141 mmol/L Normal 136-145 [facility] Comment on above: Performed By: #### H STROPN #### [facility] [address] [address] [address] Kulwant Brennan Urea nitrogen [Mass/Vol] 30.0 mg/dL Critically high 7.0-18.0 [facility] Comment on above: Performed By: #### H STROPN #### [facility] [address] [address] [address] Kulwant Brennan Urea nitrogen/Creatinine [Mass ratio] 19.7 mg/mg Normal [facility] Comment on above: Performed By: #### H STROPN #### [facility] [address] [address] [address] Kulwant Brennan PROTIMEon 06-04-2022 INR Coag (PPP) [Relative time] 0.99 {INR} Normal [facility] Comment on above: Performed By: #### P TT, PT ####[facility] [address] [address]Dr. Kulwant Brennan INR GUIDELINES SEE BELOW Normal [facility] Comment on above: Result Comment: HAYDEE RED INR: 2.0 - 3.0 CONDITIONS NOT LISTED BELOW 2.5 - 3.5 FOR PROSTHETIC HEART VALVE REPLACEMENT 2.5 - 3.5 RECURRENT THROMBOSIS Performed By: #### P TT, PT ####[facility] [address] [address]Dr. Kluwant Brennan PT Coag (PPP) [Time] 10.5 s Normal 9.0-11.6 [facility] Comment on above: Performed By: #### P TT, PT ####[facility] [address] [address]DrAmarjit Brennan PTTon 06-04-2022 aPTT Coag (Bld) [Time] 30.4 s Normal 22.3-36.2 [facility] Comment on above: Performed By: #### P TT, PT ####[facility] [address] [place], [place] [address]DrAmarjit Brennan TROPONIN, HIGH SENSITIVITYon 06-04-2022 HSTROP 4.5 pg/mL Normal 4.0-76.1 [facility] Comment on above: Result Comment: CUT- OFF POINTS HAVE BEEN ESTABLISHED BASED ON THE FOURTH UNIVERSAL DEFINITIONS OF MYOCARDIAL INFARCTION. THE UPPER REFERENCE LIMIT (URL) OF TROPONIN, DEFINED THE 99TH PERCENTILE OF cTnI DISTRIBUTION IN A REFERENCE POPULATION, HAS BEEN CONFIRMED THE DECISION THRESHOLD FOR [place] DIAGNOSIS. Performed By: #### H STROPN ####[facility] [address] [place], [place] [address]GgDr. Kulwant Brennan HSTROP 4.3 pg/mL Normal 4.0-76.1 [facility] Comment on above: Result Comment: CUT- OFF POINTS HAVE BEEN ESTABLISHED BASED ON THE FOURTH UNIVERSAL DEFINITIONS OF MYOCARDIAL INFARCTION. THE UPPER REFERENCE LIMIT (URL) OF TROPONIN, DEFINED THE 99TH PERCENTILE OF cTnI DISTRIBUTION IN A REFERENCE POPULATION, HAS BEEN CONFIRMED THE DECISION THRESHOLD FOR [place] DIAGNOSIS. Performed By: #### H STROPN #### [facility] [address] [place], [place] [address] Dr. Kulwant Brennan TSHon 06-04-2022 TSH 2.572 uIU/mL Normal 0.358-3.[address] [facility] Comment on above: Performed By: #### L ACT #### [facility] [address] [place], [place] [address] Dr. Kulwant Brennan XR CHEST 1 Von [...] as clinically indicated. Electronically authenticated by: FLORENTIN SAID Date: 2022-06-04 04:[address] [facility] XR CHEST 2 Von 06-04-2022 XR [...] by: NICOLE CASAREZ Date: 2022-06-04 16:[address] [facility] XR Hand Complete Left*on XR Hand [...] by Chaz Moreau on 04/17/2022 1415 Normal [facility] ECHO LIMITED STUDYon 022 ECHO LIMITED STUDY Patient: YOLI ANTUNEZ Exam Date: 03/22/2022 : 1955 Gender:M Ordering : YANDEL SHEN [facility] Admission #: [id number] Family : Order #: [id number] CLICK HERE TO VIEW EXAM ECHOCARDIOGRAM REPORT [...] M.D. on 03/22/2022 at 20:31 Normal [facility] XR Abdomen Single View (KUB) *on [...] by Chaz Moreau on 03/21/2022 0944 Normal [facility] AMYLASEon 02-05-2022 Amylase [Catalytic activity/Vol] 58 U/L Normal 25-115 [facility] Comment on above: Performed By: #### L IPA, YAHIR, CMP #### [facility] [address] [place], [place] [address] Dr. Kulwant Brennan CBC AUTO DIFFon 02-05-2022 BASO # 0.1 103/ul Normal 0.0-0.1 [facility] Comment on above: Performed By: #### L ACT #### [facility] [address] [place], [place] [address] Dr. Kulwant Brennan Basophils/100 WBC (Bld) 0.8 % Normal 0.2-2.0 [facility] Comment on above: Performed By: #### L ACT #### [facility] [address] [address] [address] Kulwant Brennan EO # 0.2 103/ul Normal 0.0-0.7 [facility] Comment on above: Performed By: #### L ACT #### [facility] [address] [place] [address] Dr. Kulwant Brennan Eosinophils/100 WBC (Bld) 2.3 % Normal 0.9-7.0 [facility] Comment on above: Performed By: #### L ACT #### [facility] [address] [place] [address] Dr. Kulwant Brennan Erythrocyte distribution width (RBC) [Ratio] 14.6 % Normal 11.0-15.0 [facility] Comment on above: Performed By: #### L ACT #### [facility] [address] [place] [address] Dr. Kulwant Brennan Hematocrit (Bld) [Volume fraction] 39.9 % Critically low 42.0-54.0 [facility] Comment on above: Performed By: #### L ACT #### [facility] [address] [place] [address] Dr. Kulwant Brennan Hemoglobin (Bld) [Mass/Vol] 12.7 g/dL Critically low 14.0-18.0 [facility] Comment on above: Performed By: #### L ACT #### [facility] [address] [place] [address] Dr. Kulwant Brennan IG # 0.03 10e3/ul Normal 0.00-0.03 [facility] Comment on above: Performed By: #### L ACT #### [facility] [address] [place] [address] Dr. Kulwant Brennan IG % 0.5 % Normal 0.0-0.5 [facility] Comment on above: Performed By: #### L ACT #### [facility] [address] [place] [address] Dr. Kulwant Brennan LYMPH # 1.9 103/ul Normal 1.2-3.8 [facility] Comment on above: Performed By: #### L ACT #### [facility] [address] [place] [address] Dr. Kulwant Brennan Lymphocytes/100 WBC (Bld) 28.3 % Normal 20.5-60.0 [facility] Comment on above: Performed By: #### L ACT #### [facility] [address] [place] [address] Dr. Kulwant Brennan MANUAL DIFF REQ NO Normal [facility] Comment on above: Performed By: #### L ACT #### [facility] [address] [place] [address] Dr. Kulwant Brennan MCH (RBC) [Entitic mass] 27.4 pg Normal 25.9-34.0 [facility] Comment on above: Performed By: #### L ACT #### [facility] [address] [place] [address] Dr. Kulwant Brennan MCHC (RBC) [Mass/Vol] 31.8 g/dL Normal 29.9-35.2 [facility] Comment on above: Performed By: #### L ACT #### [facility] [address] [place] [address] Dr. Kulwant Brennan MCV (RBC) [Entitic vol] 86.0 fL Normal 80.0-94.0 [facility] Comment on above: Performed By: #### L ACT #### [facility] [address] [place] [address] Dr. Kulwant Brennan MONO # 0.7 103/ul Normal 0.3-0.8 [facility] Comment on above: Performed By: #### L ACT #### [facility] [address] [place] [address] Dr. Kulwant Brennan Monocytes/100 WBC (Bld) 10.4 % Normal 1.7-12.0 [facility] Comment on above: Performed By: #### L ACT #### [facility] [address] [place] [address] Dr. Kulwant Brennan NEUT # 3.8 103/ul Normal 1.4-6.5 [facility] Comment on above: Performed By: #### L ACT #### [facility] [address] [address] [address] Kulwant Brennan Neutrophils/100 WBC (Bld) 57.7 % Normal 43.0-75.0 [facility] Comment on above: Performed By: #### L ACT #### [facility] [address] [address] [address] Kulwant Brennan Platelet mean volume (Bld) [Entitic vol] 9.9 fL Normal 9.5-13.5 [facility] Comment on above: Performed By: #### L ACT #### [facility] [address] [address] [address] Kulwant Brennan PLT 224 103/ul Normal 150-450 [facility] Comment on above: Performed By: #### L ACT #### [facility] [address] [address] [address] Kulwant Brennan RBC 4.64 106/ul Critically low 4.70-6.10 [facility] Comment on above: Performed By: #### L ACT #### [facility] [address] [address] [address] Kulwant Brennan WBC 6.6 103/ul Normal 4.0-11.0 [facility] Comment on above: Performed By: #### L ACT #### [facility] [address] [address] [address] Kulwant Brennan LIPASEon 02-05-2022 Lipase [Catalytic activity/Vol] 174.0 U/L Normal 73.0-393.0 [facility] Comment on above: Performed By: #### L YAHIR NG, CMP #### [facility] [address] [address] [address] Kulwant Brennan PROF 14(COMP METB)on 022 Albumin [Mass/Vol] 4.2 g/dL Normal 3.4-5.0 [facility] Comment on above: Performed By: #### L YAHIR NG, CMP #### [facility] [address] [address] [address] Kulwant Brennan Albumin/Globulin [Mass ratio] 1.0 {ratio} Normal [facility] Comment on above: Performed By: #### L IPA, YAHIR, CMP #### [facility] [address] [address] [address] Kulwant Brennan ALP [Catalytic activity/Vol] 106 U/L Normal 46-116 [facility] Comment on above: Performed By: #### L IPA, YAHIR, CMP #### [facility] [address] [address] [address] Kulwant Brennan ALT [Catalytic activity/Vol] 91 U/L Critically high 16-63 [facility] Comment on above: Performed By: #### L IPA, YAHIR, CMP #### [facility] [address] [address] [address] Kulwant Brennan Anion gap [Moles/Vol] 13.8 mmol/L Normal [facility] Comment on above: Performed By: #### L IPA, YAHIR, CMP #### [facility] [address] [address] [address] Kulwant Brennan AST [Catalytic activity/Vol] 26 U/L Normal 15-37 [facility] Comment on above: Performed By: #### L IPA YAHIR, CMP #### [facility] [address] [address] [address] Kulwant Brennan Bilirubin [Mass/Vol] 0.5 mg/dL Normal 0.2-1.0 [facility] Comment on above: Performed By: #### L IPA, YAHIR, CMP #### [facility] [address] [address] [address] Kulwant Brennan Calcium [Mass/Vol] 8.3 mg/dL Critically low 8.5-10.1 [facility] Comment on above: Performed By: #### L IPA, YAHIR, CMP #### [facility] [address] [address] [address] Kulwant Brennan Chloride [Moles/Vol] 103 mmol/L Normal 98-107 [facility] Comment on above: Performed By: #### L IPA, YAHIR, CMP #### [facility] [address] [address] [address] Kulwant Brennan CO2 [Moles/Vol] 26.5 mmol/L Normal 21.0-32.0 [facility] Comment on above: Performed By: #### L YAHIR NG, CMP #### [facility] [address] [place] [address] Dr. Kulwant Brennan Creatinine [Mass/Vol] 1.37 mg/dL Critically high 0.70-1.30 [facility] Comment on above: Performed By: #### L YAHIR NG, CMP #### [facility] [address] [address] [address] Kulwant Brennan EGFR-AF ECUADOREAN >60 Normal >=60 [facility] Comment on above: Performed By: #### L YAHIR NG, CMP #### [facility] [address] [place] [address] Dr. Kulwant Brennan EGFR-NON AF ECUADOREAN 52 mL/min/1.73m2 Critically low >=60 [facility] Comment on above: Performed By: #### L YAHIR NG, CMP #### [facility] [address] [place] [address] Dr. Kulwant Brennan Globulin (S) [Mass/Vol] 4.1 g/dL Normal [facility] Comment on above: Performed By: #### L YAHIR NG, CMP #### [facility] [address] [place] [address] Dr. Kulwant Brennan Glucose [Mass/Vol] 96 mg/dL Normal 74-106 [facility] Comment on above: Performed By: #### L YAHIR NG, CMP #### [facility] [address] [place] [address] Dr. Kulwant Brennan Potassium [Moles/Vol] 4.3 mmol/L Normal 3.5-5.1 [facility] Comment on above: Performed By: #### L YAHIR NG, CMP #### [facility] [address] [place] [address] Dr. Kulwant Brennan Protein [Mass/Vol] 8.3 g/dL Critically high 6.4-8.2 [facility] Comment on above: Performed By: #### L YAHIR NG, CMP #### [facility] [address] [place] [address] Dr. Kulwant Brennan Sodium [Moles/Vol] 139 mmol/L Normal 136-145 [facility] Comment on above: Performed By: #### L YAHIR NG, CMP #### [facility] [address] [place] [address] Dr. Kulwant Brennan Urea nitrogen [Mass/Vol] 27.0 mg/dL Critically high 7.0-18.0 [facility] Comment on above: Performed By: #### L YAHIR NG, CMP #### [facility] [address] [place] [address] Dr. Kulwant Brennan Urea nitrogen/Creatinine [Mass ratio] 19.7 mg/mg Normal [facility] Comment on above: Performed By: #### L YAHIR NG, CMP #### [facility] [address] [place] [address] Dr. Kulwant Brennan CBC AUTO DIFFon 01-09-2022 BASO # 0.1 103/ul Normal 0.0-0.1 [facility] Comment on above: Performed By: #### H STROPN #### [facility] [address] [place] [address] Dr. Kulwant Brennan Basophils/100 WBC (Bld) 0.5 % Normal 0.2-2.0 [facility] Comment on above: Performed By: #### H STROPN #### [facility] [address] [place] [address] Dr. Kulwant Brennan EO # 0.2 103/ul Normal 0.0-0.7 [facility] Comment on above: Performed By: #### H STROPN #### [facility] [address] [place] [address] Dr. Kulwant Brennan Eosinophils/100 WBC (Bld) 2.3 % Normal 0.9-7.0 [facility] Comment on above: Performed By: #### H STROPN #### [facility] [address] [place] [address] Dr. Kulwant Brennan Erythrocyte distribution width (RBC) [Ratio] 14.6 % Normal 11.0-15.0 [facility] Comment on above: Performed By: #### H STROPN #### [facility] [address] [address] [address] Kulwant Brennan Hematocrit (Bld) [Volume fraction] 35.8 % Critically low 42.0-54.0 [facility] Comment on above: Performed By: #### H STROPN #### [facility] [address] [address] [address] Kulwant Brennan Hemoglobin (Bld) [Mass/Vol] 11.4 g/dL Critically low 14.0-18.0 [facility] Comment on above: Performed By: #### H STROPN #### [facility] [address] [address] [address] Kulwant Brennan IG # 0.33 10e3/ul Critically high 0.00-0.03 [facility] Comment on above: Performed By: #### H STROPN #### [facility] [address] [place] [address] Dr. Kulwant Brennan IG % 3.2 % Critically high 0.0-0.5 [facility] Comment on above: Performed By: #### H STROPN #### [facility] [address] [address] [address] Kulwant Brennan LYMPH # 1.9 103/ul Normal 1.2-3.8 [facility] Comment on above: Performed By: #### H STROPN #### [facility] [address] [place] [address] Dr. Kulwant Brennan Lymphocytes/100 WBC (Bld) 18.3 % Critically low 20.5-60.0 [facility] Comment on above: Performed By: #### H STROPN #### [facility] [address] [address] [address] Kulwant Brennan MANUAL DIFF REQ NO Normal [facility] Comment on above: Performed By: #### H STROPN #### [facility] [address] [place] [address] Dr. Kulwant Brennan MCH (RBC) [Entitic mass] 26.8 pg Normal 25.9-34.0 [facility] Comment on above: Performed By: #### H STROPN #### [facility] [address] [address] [address] Kulwant Brennan MCHC (RBC) [Mass/Vol] 31.8 g/dL Normal 29.9-35.2 [facility] Comment on above: Performed By: #### H STROPN #### [facility] [address] [address] [address] Kulwant Brennan MCV (RBC) [Entitic vol] 84.0 fL Normal 80.0-94.0 [facility] Comment on above: Performed By: #### H STROPN #### [facility] [address] [address] [address] Kulwant Brennan MONO # 0.9 103/ul Critically high 0.3-0.8 [facility] Comment on above: Performed By: #### H STROPN #### [facility] [address] [place] [address] Dr. Kulwant Brennan Monocytes/100 WBC (Bld) 9.2 % Normal 1.7-12.0 [facility] Comment on above: Performed By: #### H STROPN #### [facility] [address] [address] [address] Kulwant Brennan NEUT # 6.8 103/ul Critically high 1.4-6.5 [facility] Comment on above: Performed By: #### H STROPN #### [facility] [address] [place] [address] Dr. Kulwant Brennan Neutrophils/100 WBC (Bld) 66.5 % Normal 43.0-75.0 [facility] Comment on above: Performed By: #### H STROPN #### [facility] [address] [address] [address] Kulwant Brennan Platelet mean volume (Bld) [Entitic vol] 10.5 fL Normal 9.5-13.5 [facility] Comment on above: Performed By: #### H STROPN #### [facility] [address] [address] [address] Kulwant Brennan PLT 357 103/ul Normal 150-450 [facility] Comment on above: Performed By: #### H STROPN #### [facility] [address] [address] [address] Kulwant Brennan RBC 4.26 106/ul Critically low 4.70-6.10 [facility] Comment on above: Performed By: #### H STROPN #### [facility] [address] [address] [address] Kulwant Brennan WBC 10.2 103/ul Normal 4.0-11.0 [facility] Comment on above: Performed By: #### H STROPN #### [facility] [address] [address] [address] Kulwant Brennan PROF 14(COMP METB)on 022 Albumin [Mass/Vol] 3.3 g/dL Critically low 3.4-5.0 [facility] Comment on above: Performed By: #### T SH, CMP ####[facility] [address] [address]DrAmarjit Brennan Albumin/Globulin [Mass ratio] 0.8 {ratio} Normal [facility] Comment on above: Performed By: #### T SH, CMP ####[facility] [address] [address]DrAmarjit Brennan ALP [Catalytic activity/Vol] 151 U/L Critically high 46-116 [facility] Comment on above: Performed By: #### T SH, CMP ####[facility] [address] [address]DrAmarjit Brennan ALT [Catalytic activity/Vol] 118 U/L Critically high 16-63 [facility] Comment on above: Performed By: #### T SH, CMP ####[facility] [address] [address]DrAmarjit Brennan Anion gap [Moles/Vol] 12.3 mmol/L Normal [facility] Comment on above: Performed By: #### T SH, CMP ####[facility] [address] [address]DrAmarjit Brennan AST [Catalytic activity/Vol] 65 U/L Critically high 15-37 [facility] Comment on above: Performed By: #### T SH, CMP ####[facility] [address] [address]Dr. Kulwant Brennan Bilirubin [Mass/Vol] 0.5 mg/dL Normal 0.2-1.0 [facility] Comment on above: Performed By: #### T SH, CMP ####[facility] [address] [place], [place] [address]Dr. Kulwant Brennan Calcium [Mass/Vol] 5.3 mg/dL Critically low 8.5-10.1 [facility] Comment on above: Performed By: #### T SH, CMP ####[facility] [address] [place], [place] [address]Dr. Kulwant Brennan Chloride [Moles/Vol] 104 mmol/L Normal 98-107 [facility] Comment on above: Performed By: #### T SH, CMP ####[facility] [address] [place], [place] [address]Dr. Kulwant Brennan CO2 [Moles/Vol] 26.7 mmol/L Normal 21.0-32.0 [facility] Comment on above: Performed By: #### T SH, CMP ####[facility] [address] [place], [place] [address]Dr. Kulwant Mika Creatinine [Mass/Vol] 2.08 mg/dL Critically high 0.70-1.30 [facility] Comment on above: Performed By: #### T SH, CMP ####[facility] [address] [place], [place] [address]Dr. Kulwant Mika EGFR-AF ECUADOREAN 39 mL/min/1.73m2 Critically low >=60 [facility] Comment on above: Performed By: #### T SH, CMP ####[facility] [address] [place], [place] [address]Dr. Kulwant Brennan EGFR-NON AF ECUADOREAN 32 mL/min/1.73m2 Critically low >=60 [facility] Comment on above: Performed By: #### T SH, CMP ####[facility] [address] [place], [place] [address]Dr. Kulwant Brennan Globulin (S) [Mass/Vol] 4.1 g/dL Normal [facility] Comment on above: Performed By: #### T RAJEEV, CMP ####[facility] [address] [address]Dr. Kulwant Brennan Glucose [Mass/Vol] 89 mg/dL Normal 74-106 [facility] Comment on above: Performed By: #### T RAJEEV, CMP ####[facility] [address] [place], [place] [address]Dr. Kulwant Brennan Potassium [Moles/Vol] 4.0 mmol/L Normal 3.5-5.1 [facility] Comment on above: Performed By: #### T RAJEEV, CMP ####[facility] [address] [place], [place] [address]Dr. Kulwant Brennan Protein [Mass/Vol] 7.4 g/dL Normal 6.4-8.2 [facility] Comment on above: Performed By: #### T RAJEEV, CMP ####[facility] [address] [place], [place] [address]Dr. Kulwant Brennan Sodium [Moles/Vol] 139 mmol/L Normal 136-145 [facility] Comment on above: Performed By: #### T RAJEEV, CMP ####[facility] [address] [place], [place] [address]Dr. Kulwant Brennan Urea nitrogen [Mass/Vol] 28.0 mg/dL Critically high 7.0-18.0 [facility] Comment on above: Performed By: #### T RAJEEV, CMP ####[facility] [address] [place], [place] [address]Dr. Kulwant Brennan Urea nitrogen/Creatinine [Mass ratio] 13.5 mg/mg Normal [facility] Comment on above: Performed By: #### T RAJEEV, CMP ####[facility] [address] [place], [place] [address]Dr. Kulwant Brennan TSHon 01-09-2021 TSH 20.234 uIU/mL Critically high 0.358-3.74 0 [facility] Comment on above: Performed By: #### T RAJEEV, CMP ####[facility] [address] [place], [place] [address]Ra. Kulwant Brennan Cult, Bloodon 01-06-2022 Cult, Blood Specimen Description .BLOOD Special Requests RT AC 6ML Culture NO GROWTH 5 DAYS Report Status FINAL 01/06/2022 Normal [facility] Comment on above: Performed By: #### U RNA, URTPRT, UMICAO, UEOS, UA #### [facility] [address] [place] [address] [employer] Adjuster: Ronn Arias MD Cult,Bloodon 01-06-2022 Cult,Blood Specimen Description .BLOOD Special Requests LT HAND 6ML Culture NO GROWTH 5 DAYS Report Status FINAL 01/06/2022 Normal [facility] Comment on above: Performed By: #### U RNA, URTPRT, UMICAO, UEOS, UA #### [address] [address] [employer] Adjuster: Ronn Arias MD KYLE SCREEN WITH REFLEXon Anti ds DNA 5.8 NINF [facility] Comment on above: Reference Range: <10.0 Negative 10.0-15.0 Equivocal >15.0 Positive ARJUN Antibodies Screen 0.3 U/[facility] U/mL [facility] Comment on above: Reference Range: <0.7 Negative 0.7-1.0 Equivocal >1.0 Positive ARJUN Screen includes U1RNP,RNP70,Sm,Ro(SS-A),La(SS-B),CENP,Scl-70,Pippa-1 Nuclear Ab IF (S) [Titer] Negative NEGATIVE [facility] KYLE Screen w/reflexon 2021 KYLE Screen Negative Normal NEG [facility] Comment on above: Performed By: #### U RNA, URTPRT, UMICAO, UEOS, UA #### [facility] [place] [address] Swaging Machine Adjuster: Ronn Arias MD Anti-dsDNA 5.8 IU/mL Normal <10.0 [facility] Comment on above: Result Comment: Reference Range: <10.0 Negative 10.0-15.0 Equivocal >15.0 Positive Performed By: #### U RNA, URTPRT, UMICAO, UEOS, UA #### [facility] [address] [place], [place] [id number] [employer] Machine Adjuster: Ronn Arias MD ARJUN Screen 0.3 U/mL Normal <0.7 [facility] Comment on above: Result Comment: Reference Range: <0.7 Negative 0.7-1.0 Equivocal >1.0 Positive ARJUN Screen includes U1RNP,RNP70,Sm,Ro(SS-A),La(SS-B),CENP,Scl-70,Pippa-1 Performed By: #### U RNA, URTPRT, UMICAO, UEOS, UA #### [facility] [address] [place] [address] [employer]aging Machine Adjuster: Ronn Arias MD Basic Metabolic Panel - Anion gap [Moles/Vol] 14 mmol/L 9 - 17 mmol/L [facility] Calcium [Mass/Vol] 6.4 mg/dL Low 8.6 - 10. 4 mg/dL [facility] Chloride [Moles/Vol] 108 mmol/L High 98 - 10 7 mmol/L [facility] CO2 [Moles/Vol] 25 mmol/L 20 - 31 mmol/L [facility] Creatinine [Mass/Vol] 2.5 mg/dL High 0.7 - 1.2 mg/dL [facility] GFR 31 mL/min Low 60 - PI NF mL/min [facility] GFR Non- 26 mL/min Low 60 - PINF mL/min [facility] GFR/1.73 sq M.predicted MDRD (S/P/Bld) [Vol rate/Area] [facility] Comment on above: Average GFR for 60-6 9 years old: 85 mL/min/1.73sq m Chronic Kidney Disease: <60 mL/min/1.73sq m Kidney failure: <15 mL/min/1.73sq m eGFR calculated using average adult body mass. Additional eGFR calculator available at: http://www.Compumatrix/multiple_crcl_2012.htm Glucose [Mass/Vol] 99 mg/dL 70 - 99 mg/dL [facility] Interpretation and review of laboratory results Abnormal [facility] Potassium [Moles/Vol] 4.6 mmol/L 3.7 - 5.3 mmol/L [facility] Sodium [Moles/Vol] 147 mmol/L High 135 - 144 mmol/L [facility] Urea nitrogen (BldV) [Mass/Vol] 40 mg/dL High 8 - 23 mg/dL [facility] Basic Metabolic Profon 01-05 (cont.) Normal [facility] Comment on above: Result Comment: Aver age GFR for 60-69 years old: 85 mL/min/1.73sq m Chronic Kidney Disease: <60 mL/min/1.73sq m Kidney failure: <15 mL/min/1.73sq m eGFR calculated using average adult body mass. Additional eGFR calculator available at: http://www.Compumatrix/Grow the Planet_crcl_2012.htm Performed By: #### U RNA, URTPRT, UMICAO, UEOS, UA #### [facility] [address] [place] [address] [employer] Machine Adjuster: Ronn Arias MD Anion gap [Moles/Vol] 14 mmol/L Normal - [facility] Comment on above: Performed By: #### U RNA, URTPRT, UMICAO, UEOS, UA #### [facility] [address] [place] [address] Swaging Machine Adjuster: Ronn Arias MD Calcium [Mass/Vol] 6.4 mg/dL Low 8.6-10.4 [facility] Comment on above: Performed By: #### U RNA, URTPRT, UMICAO, UEOS, UA #### [facility] [address] [place] [address] [employer] Machine Adjuster: Ronn Arias MD Chloride [Moles/Vol] 108 mmol/L High 98-107 [facility] Comment on above: Performed By: #### U RNA, URTPRT, UMICAO, UEOS, UA #### [facility] [address] [place] [address] [employer]aging Machine Adjuster: Ronn Arias MD CO2 [Moles/Vol] 25 mmol/L Normal 20-31 [facility] Comment on above: Performed By: #### U RNA, URTPRT, UMICAO, UEOS, UA #### [facility] [address] [place] [address] Swaging Machine Adjuster: Ronn Arias MD Creatinine [Mass/Vol] 2.50 mg/dL High 0.70-1.20 [facility] Comment on above: Performed By: #### U RNA, URTPRT, UMICAO, UEOS, UA #### [address] [address] [employer] Adjuster: Ronn Arias MD GFR, Amer 31 mL/min Low >60 [facility] Comment on above: Performed By: #### U RNA, URTPRT, UMICAO, UEOS, UA #### [address] [address] [employer] Machine Adjuster: Ronn Arias MD GFR,non Amer 26 mL/min Low >60 [facility] Comment on above: Performed By: #### U RNA, URTPRT, UMICAO, UEOS, UA #### [facility] [address] [place] [address] [employer] Machine Adjuster: Ronn Arias MD Glucose [Mass/Vol] 99 mg/dL Normal 70-99 [facility] Comment on above: Performed By: #### U RNA, URTPRT, UMICAO, UEOS, UA #### [facility] [address] [place] [address] Swaging Machine Adjuster: Ronn Arias MD Potassium [Moles/Vol] 4.6 mmol/L Normal 3.7-5.3 [facility] Comment on above: Performed By: #### U RNA, URTPRT, UMICAO, UEOS, UA #### [facility] [address] [place] [address] Swaging Machine Adjuster: Ronn Arias MD Sodium [Moles/Vol] 147 mmol/L High 135-144 [facility] Comment on above: Performed By: #### U RNA, URTPRT, UMICAO, UEOS, UA #### [facility] [address] [place] [address] Swaging Machine Adjuster: Ronn Arias MD Urea nitrogen [Mass/Vol] 40 mg/dL High 8-23 [facility] Comment on above: Performed By: #### U RNA, URTPRT, UMICAO, UEOS, UA #### [facility] [address] [place] [address] Swaging Machine Adjuster: Ronn Arias MD IMMUNOFIXATION SERUM PROFILE on 01-05-2022 Pathologist Cyto stain Nom (Cvx/Vag) [ID] Reviewed by pathologist: Kailee Portillo M.D. [facility] Serum IFX Interp IMMUNOFIXATION IS NE GATIVE FOR MONOCLONAL IMMUNOGLOBULIN. [facility] Immunofixation,Bloodon 01-05 IFX - Interpret. IMMUNOFIXATION IS NE GATIVE FOR MONOCLONAL IMMUNOGLOBULIN. Normal [facility] Comment on above: Performed By: #### U RNA, URTPRT, UMICAO, UEOS, UA #### [facility] [address] [place] [address] Swaging Machine Adjuster: Ronn Arias MD Pathologist Review: Reviewed by patholog ist: Kailee Portillo M.D. [facility] Comment on above: Performed By: #### U RNA, URTPRT, UMICAO, UEOS, UA #### [facility] [address] [place] [address] Swaging Machine Adjuster: Ronn Arias MD Basic Metab w/rfx MGon 01-04 (cont.) [facility] Comment on above: Result Comment: Aver age GFR for 60-69 years old: 85 mL/min/1.73sq m Chronic Kidney Disease: <60 mL/min/1.73sq m Kidney failure: <15 mL/min/1.73sq m eGFR calculated using average adult body mass. Additional eGFR calculator available at: http://www.Compumatrix/multiple_crcl_2012.htm Performed By: #### U RNA, URTPRT, UMICAO, UEOS, UA #### [facility] [address] [place] [address] Swaging Machine Adjuster: Ronn Arias MD Anion gap [Moles/Vol] 13 mmol/L Normal 9-17 [facility] Comment on above: Performed By: #### U RNA, URTPRT, UMICAO, UEOS, UA #### [facility] [address] [place] [address] Swaging Machine Adjuster: Ronn Arias MD Calcium [Mass/Vol] 6.6 mg/dL Low 8.6-10.4 [facility] Comment on above: Performed By: #### U RNA, URTPRT, UMICAO, UEOS, UA #### [facility] [address] [place] [address] Swaging Machine Adjuster: Ronn Arias MD Chloride [Moles/Vol] 107 mmol/L Normal 98-107 [facility] Comment on above: Performed By: #### U RNA, URTPRT, UMICAO, UEOS, UA #### [facility] [address] [place] [address] Swaging Machine Adjuster: Ronn Arias MD CO2 [Moles/Vol] 21 mmol/L Normal 20-31 [facility] Comment on above: Performed By: #### U RNA, URTPRT, UMICAO, UEOS, UA #### [address] [address] Swaging Machine Adjuster: Ronn Arias MD Creatinine [Mass/Vol] 3.07 mg/dL High 0.70-1.20 [facility] Comment on above: Performed By: #### U RNA, URTPRT, UMICAO, UEOS, UA #### [address] [address] Swaging Machine Adjuster: Ronn Arias MD GFR, Amer 25 mL/min Low >60 [facility] Comment on above: Performed By: #### U RNA, URTPRT, UMICAO, UEOS, UA #### [facility] [address] [place] [address] Swaging Machine Adjuster: Ronn Arias MD GFR,non Amer 20 mL/min Low >60 [facility] Comment on above: Performed By: #### U RNA, URTPRT, UMICAO, UEOS, UA #### [address] [address] Swaging Machine Adjuster: Ronn Arias MD Glucose [Mass/Vol] 95 mg/dL Normal 70-99 [facility] Comment on above: Performed By: #### U RNA, URTPRT, UMICAO, UEOS, UA #### [facility] [address] [place] [address] Swaging Machine Adjuster: Ronn Arias MD Potassium [Moles/Vol] 4.3 mmol/L Normal 3.7-5.3 [facility] Comment on above: Performed By: #### U RNA, URTPRT, UMICAO, UEOS, UA #### [facility] [address] [place], [place] [phone] Swaging Machine Adjuster: Ronn Arias MD Sodium [Moles/Vol] 141 mmol/L Normal 135-144 [facility] Comment on above: Performed By: #### U RNA, URTPRT, UMICAO, UEOS, UA #### [facility] [address] [place], [place] [phone] Swaging Machine Adjuster: Ronn Arias MD Urea nitrogen [Mass/Vol] 54 mg/dL High 8-23 [facility] Comment on above: Performed By: #### U RNA, URTPRT, UMICAO, UEOS, UA #### [facility] [address] [place], [place] [phone] Sw[employer] Machine Adjuster: Ronn Arias MD Basic Metabolic Panel w/ Ref luz to MGon 01-04-2022 Anion gap [Moles/Vol] 13 mmol/L 9 - 17 mmol/L [facility] Calcium [Mass/Vol] 6.6 mg/dL Low 8.6 - 10. 4 mg/dL [facility] Chloride [Moles/Vol] 107 mmol/L 98 - 10 7 mmol/L [facility] CO2 [Moles/Vol] 21 mmol/L 20 - 31 mmol/L [facility] Creatinine [Mass/Vol] 3.07 mg/dL High 0.7 - 1.2 mg/dL [facility] GFR 25 mL/min Low 60 - PI NF mL/min [facility] GFR Non- 20 mL/min Low 60 - PINF mL/min [facility] GFR/1.73 sq M.predicted MDRD (S/P/Bld) [Vol rate/Area] [facility] Comment on above: Average GFR for 60-6 9 years old: 85 mL/min/1.73sq m Chronic Kidney Disease: <60 mL/min/1.73sq m Kidney failure: <15 mL/min/1.73sq m eGFR calculated using average adult body mass. Additional eGFR calculator available at: http://www.Synlogic.eyesFinder/multiple_crcl_2012.htm Glucose [Mass/Vol] 95 mg/dL 70 - 99 mg/dL [facility] Interpretation and review of laboratory results Abnormal [facility] Potassium [Moles/Vol] 4.3 mmol/L 3.7 - 5.3 mmol/L [facility] Sodium [Moles/Vol] 141 mmol/L 135 - 144 mmol/L [facility] Urea nitrogen (BldV) [Mass/Vol] 54 mg/dL High 8 - 23 mg/dL [facility] CBC with Auto Differentialon 01-04-2022 Absolute Eos # 0.19 [facility] Absolute Immature Granulocyte 0.09 [facility] Absolute Lymph # 1.34 [facility] Absolute Foster # 1.01 [facility] Basophils Absolute [facility] Basophils/100 WBC (Bld) 0 % 0 - 2 % [facility] Eosinophils/100 WBC (Bld) 2 % 1 - 4 % [facility] Hematocrit (Bld) [Volume fraction] 28.4 % Low 40.7 - 50.3 % [facility] Hemoglobin (Bld) [Mass/Vol] 9.3 g/dL Low 13 - 17 g/dL [facility] Immature granulocytes/100 WBC (Bld) 1 % High 0 [facility] Interpretation and review of laboratory results Abnormal [facility] Lymphocytes/100 WBC (Bld) 11 % Low 24 - 43 % [facility] MCH (RBC) [Entitic mass] 27.4 pg 25.2 - 33.5 pg [facility] MCHC (RBC) [Mass/Vol] 32.7 g/dL 28.4 - 34.8 g/dL [facility] MCV (RBC) [Entitic vol] 83.8 fL 82.6 - 102.9 fL [facility] Monocytes/100 WBC (Bld) 8 % 3 - 12 % [facility] NRBC Automated 0.0 0.0 per 100 WBC [facility] Platelet distribution width (Bld) [Ratio] 14.3 % 11.8 - 14.4 % [facility] Platelet mean volume (Bld) [Entitic vol] 10.6 fL 8.1 - 13.5 fL [facility] Platelets (Bld) [#/Vol] 177 10*3/uL [facility] RBC (Bld) [#/Vol] 3.39 10*6/uL Low 4.21 - 5.77 m/uL [facility] Segmented neutrophils/100 WBC (Bld) 78 % High 36 - 65 % [facility] Segs Absolute 9.54 High [facility] WBC (Bld) [#/Vol] 12.2 10*3/uL High [facility] CBC with Diffon 01-04-2022 Abs. Basophil <0.03 Normal 0.00-0.20 [facility] Comment on above: Performed By: #### U RNA, URTPRT, UMICAO, UEOS, UA #### [facility] [address] [place] [address] Swaging Machine Adjuster: Ronn Arias MD Abs.Imm.Granulocyte 0.09 k/uL Normal 0.00-0.30 [facility] Comment on above: Performed By: #### U RNA, URTPRT, UMICAO, UEOS, UA #### [facility] [address] [place] [address] Swaging Machine Adjuster: Ronn Arias MD Abs.Neutrophil (Seg) 9.54 k/uL High 1.50-8.10 [facility] Comment on above: Performed By: #### U RNA, URTPRT, UMICAO, UEOS, UA #### [facility] [address] [place] [address] Swaging Machine Adjuster: Ronn Arias MD Basophils/100 WBC (Bld) 0 % Normal 0-2 [facility] Comment on above: Performed By: #### U RNA, URTPRT, UMICAO, UEOS, UA #### [address] [address] Swaging Machine Adjuster: Ronn Arias MD Eosinophils (Bld) [#/Vol] 0.19 10*3/uL Normal 0.00-0.44 [facility] Comment on above: Performed By: #### U RNA, URTPRT, UMICAO, UEOS, UA #### [address] [address] Swaging Machine Adjuster: Ronn Arias MD Eosinophils/100 WBC (Bld) 2 % Normal 1-4 [facility] Comment on above: Performed By: #### U RNA, URTPRT, UMICAO, UEOS, UA #### [address] [address] Swaging Machine Adjuster: Ronn Arias MD Immature granulocytes/100 WBC (Bld) 1 % High 0 [facility] Comment on above: Performed By: #### U RNA, URTPRT, UMICAO, UEOS, UA #### [address] [address] Swaging Machine Adjuster: Ronn Arias MD Lymphocytes (Bld) [#/Vol] 1.34 10*3/uL Normal 1.10-3.70 [facility] Comment on above: Performed By: #### U RNA, URTPRT, UMICAO, UEOS, UA #### [address] [address] Swaging Machine Adjuster: Ronn Arias MD Lymphocytes/100 WBC (Bld) 11 % Low 24-43 [facility] Comment on above: Performed By: #### U RNA, URTPRT, UMICAO, UEOS, UA #### [address] [address] Swaging Machine Adjuster: Ronn Arias MD Monocytes (Bld) [#/Vol] 1.01 10*3/uL Normal 0.10-1.20 [facility] Comment on above: Performed By: #### U RNA, URTPRT, UMICAO, UEOS, UA #### [facility] [address] [place] [address] Swaging Machine Adjuster: Ronn Arias MD Monocytes/100 WBC (Bld) 8 % Normal 3-12 [facility] Comment on above: Performed By: #### U RNA, URTPRT, UMICAO, UEOS, UA #### [facility] [address] [place] [address] Swaging Machine Adjuster: Ronn Arias MD Neutrophil (Seg) 78 % High 36-65 [facility] Comment on above: Performed By: #### U RNA, URTPRT, UMICAO, UEOS, UA #### [address] [address] Swaging Machine Adjuster: Ronn Arias MD Erythrocyte distribution width (RBC) [Ratio] 14.3 % Normal 11.8-14.4 [facility] Comment on above: Performed By: #### U RNA, URTPRT, UMICAO, UEOS, UA #### [facility] [address] [place] [address] Swaging Machine Adjuster: Ronn Arias MD Hematocrit (Bld) [Volume fraction] 28.4 % Low 40.7-50.3 [facility] Comment on above: Performed By: #### U RNA, URTPRT, UMICAO, UEOS, UA #### [facility] [address] [place] [address] Swaging Machine Adjuster: Ronn Arias MD Hemoglobin (Bld) [Mass/Vol] 9.3 g/dL Low 13.0-17.0 [facility] Comment on above: Performed By: #### U RNA, URTPRT, UMICAO, UEOS, UA #### [facility] [address] [place] [address] Swaging Machine Adjuster: Ronn Arias MD MCH (RBC) [Entitic mass] 27.4 pg Normal 25.2-33.5 [facility] Comment on above: Performed By: #### U RNA, URTPRT, UMICAO, UEOS, UA #### [address] [address] Swaging Machine Adjuster: Ronn Arias MD MCHC (RBC) [Mass/Vol] 32.7 g/dL Normal 28.4-34.8 [facility] Comment on above: Performed By: #### U RNA, URTPRT, UMICAO, UEOS, UA #### [place] [address] Swaging Machine Adjuster: Ronn Arias MD MCV (RBC) [Entitic vol] 83.8 fL Normal 82.6-102.9 [facility] Comment on above: Performed By: #### U RNA, URTPRT, UMICAO, UEOS, UA #### [address] [address] Swaging Machine Adjuster: Ronn Arias MD NRBC Automated 0.0 per 100 WBC Normal 0.0 [facility] Comment on above: Performed By: #### U RNA, URTPRT, UMICAO, UEOS, UA #### [address] [address] Swaging Machine Adjuster: Ronn Arias MD Platelet mean volume (Bld) [Entitic vol] 10.6 fL Normal 8.1-13.5 [facility] Comment on above: Performed By: #### U RNA, URTPRT, UMICAO, UEOS, UA #### [address] [address] Swaging Machine Adjuster: Ronn Arias MD Platelets (Bld) [#/Vol] 177 10*3/uL Normal 138-453 [facility] Comment on above: Performed By: #### U RNA, URTPRT, UMICAO, UEOS, UA #### [facility] [address] [place] [address] Swaging Machine Adjuster: Ronn Arias MD RBC (Bld) [#/Vol] 3.39 10*6/uL Low 4.21-5.77 [facility] Comment on above: Performed By: #### U RNA, URTPRT, UMICAO, UEOS, UA #### [facility] [address] [place] [address] Swaging Machine Adjuster: Ronn Arias MD WBC (Bld) [#/Vol] 12.2 10*3/uL High 3.5-11.3 [facility] Comment on above: Performed By: #### U RNA, URTPRT, UMICAO, UEOS, UA #### [address] [address] Swaging Machine Adjuster: Ronn Arias MD Basic Metab w/rfx MGon 01-03 (cont.) Normal [facility] Comment on above: Result Comment: Aver age GFR for 60-69 years old: 85 mL/min/1.73sq m Chronic Kidney Disease: <60 mL/min/1.73sq m Kidney failure: <15 mL/min/1.73sq m eGFR calculated using average adult body mass. Additional eGFR calculator available at: http://www.Synlogic.eyesFinder/multiple_crcl_2011.htm Performed By: #### L ACDS #### [facility] [address] [place] [address] Swaging Machine Adjuster: Ronn Arias MD Anion gap [Moles/Vol] 16 mmol/L Normal - [facility] Comment on above: Performed By: #### L ACDS #### [address] [address] Swaging Machine Adjuster: Ronn Arias MD Calcium [Mass/Vol] 6.9 mg/dL Low 8.6-10.4 [facility] Comment on above: Performed By: #### L ACDS #### [address] [address] Swaging Machine Adjuster: Ronn Arias MD Chloride [Moles/Vol] 106 mmol/L Normal 98-107 [facility] Comment on above: Performed By: #### L ACDS #### [address] [address] Swaging Machine Adjuster: Ronn Arias MD CO2 [Moles/Vol] 16 mmol/L Low 20-31 [facility] Comment on above: Performed By: #### L ACDS #### [address] [address] Swaging Machine Adjuster: Ronn Arias MD Creatinine [Mass/Vol] 3.44 mg/dL High 0.70-1.20 [facility] Comment on above: Performed By: #### L ACDS #### [address] [address] Swaging Machine Adjuster: Ronn Arias MD GFR, Amer 22 mL/min Low >60 [facility] Comment on above: Performed By: #### L ACDS #### [address] [address] Swaging Machine Adjuster: Ronn Arias MD GFR,non Amer 18 mL/min Low >60 [facility] Comment on above: Performed By: #### L ACDS #### [address] [address] Swaging Machine Adjuster: Ronn Arias MD Glucose [Mass/Vol] 138 mg/dL High 70-99 [facility] Comment on above: Performed By: #### L ACDS #### [address] [id number] Swaging Machine Adjuster: Ronn Arias MD Potassium [Moles/Vol] 4.8 mmol/L Normal 3.7-5.3 [facility] Comment on above: Performed By: #### L ACDS #### [facility] [address] [place], [place] [phone] Swaging Machine Adjuster: Ronn Arias MD Sodium [Moles/Vol] 138 mmol/L Normal 135-144 [facility] Comment on above: Performed By: #### L ACDS #### [facility] [address] [place], [place] [phone] Swaging Machine Adjuster: Ronn Arias MD Urea nitrogen [Mass/Vol] 53 mg/dL High 8-23 [facility] Comment on above: Performed By: #### L ACDS #### [facility] [address] [place], [place] [phone] Swaging Machine Adjuster: Ronn Arias MD Basic Metabolic Panel w/ Ref luz to MGon 01-03-2022 Anion gap [Moles/Vol] 16 mmol/L 9 - 17 mmol/L [employer] Calcium [Mass/Vol] 6.9 mg/dL Low 8.6 - 10. 4 mg/dL [email or web address] Chloride [Moles/Vol] 106 mmol/L 98 - 10 7 mmol/L [facility] CO2 [Moles/Vol] 16 mmol/L Low 20 - 31 mmol/L [email or web address] [facility] Creatinine [Mass/Vol] 3.44 mg/dL High 0.7 - 1.2 mg/dL [employer] GFR 22 mL/min Low 60 - PI NF mL/min [employer] GFR Non- 18 mL/min Low 60 - PINF mL/min [employer] GFR/1.73 sq M.predicted MDRD (S/P/Bld) [Vol rate/Area] [facility] [employer] Comment on above: Average GFR for 60-6 9 years old: 85 mL/min/1.73sq m Chronic Kidney Disease: <60 mL/min/1.73sq m Kidney failure: <15 mL/min/1.73sq m eGFR calculated using average adult body mass. Additional eGFR calculator available at: http://www.Synlogic.eyesFinder/multiple_crcl_2012.htm Glucose [Mass/Vol] 138 mg/dL High 70 - 99 mg/dL [facility] Potassium [Moles/Vol] 4.8 mmol/L 3.7 - 5.3 mmol/L [facility] Sodium [Moles/Vol] 138 mmol/L 135 - 144 mmol/L [facility] Urea nitrogen (BldV) [Mass/Vol] 53 mg/dL High 8 - 23 mg/dL [facility] C3on 01-03-2022 C3 108 mg/dL Normal 90-180 [facility] Comment on above: Performed By: #### U RNA, URTPRT, UMICAO, UEOS, UA #### [facility] [address] [place] [address] Swaging Machine Adjuster: Ronn Arias MD C3 COMPLEMENTon 01-03-2022 Complement C3 108 mg/dL 90 - 180 mg/dL [facility] C4on 01-03-2022 C4 21 mg/dL Normal 10-40 [facility] Comment on above: Performed By: #### U RNA, URTPRT, UMICAO, UEOS, UA #### [facility] [address] [place] [address] Swaging Machine Adjuster: Ronn Arias MD C4 COMPLEMENTon 01-03-2022 Complement C4 21 mg/dL 10 - 40 mg/dL [facility] CBC with Auto Differentialon 01-03-2022 Absolute Eos # [facility] Absolute Immature Granulocyte 0.09 [facility] Lymph # 0.76 Low [facility] Absolute Foster # 0.39 [facility] [employer] Basophils Absolute [facility] Basophils/100 WBC (Bld) 0 % 0 - 2 % [facility] Eosinophils/100 WBC (Bld) 0 % Low 1 - 4 % [facility] Hematocrit (Bld) [Volume fraction] 31.4 % Low 40.7 - 50.3 % [facility] Hemoglobin (Bld) [Mass/Vol] 10.3 g/dL Low 13 - 17 g/dL [facility] Immature granulocytes/100 WBC (Bld) 1 % High 0 [facility] Interpretation and review of laboratory results Abnormal [facility] Lymphocytes/100 WBC (Bld) 6 % Low 24 - 43 % [facility] MCH (RBC) [Entitic mass] 27.5 pg 25.2 - 33.5 pg [facility] MCHC (RBC) [Mass/Vol] 32.8 g/dL 28.4 - 34.8 g/dL [facility] MCV (RBC) [Entitic vol] 83.7 fL 82.6 - 102.9 fL [facility] Monocytes/100 WBC (Bld) 3 % 3 - 12 % [facility] NRBC Automated 0.0 0.0 per 100 WBC [facility] Platelet distribution width (Bld) [Ratio] 14.5 % High 11.8 - 14.4 % [facility] Platelet mean volume (Bld) [Entitic vol] 10.9 fL 8.1 - 13.5 fL [facility] Platelets (Bld) [#/Vol] 170 10*3/uL [facility] RBC (Bld) [#/Vol] 3.75 10*6/uL Low 4.21 - 5.77 m/uL [facility] RBC (Bld) [#/Vol] ANISOCYTOSIS PRESENT [facility] Segmented neutrophils/100 WBC (Bld) 90 % High 36 - 65 % [facility] Segs Absolute 11.26 High [facility] WBC (Bld) [#/Vol] 12.5 10*3/uL High [facility] CBC with Diffon 01-03-2022 Abs. Basophil <0.03 Normal 0.00-0.20 [facility] Comment on above: Performed By: #### L ACDS #### [employer] [address] [place] [address] Swaging Machine Adjuster: Ronn Arias MD Abs. Eosinophil <0.03 Normal 0.00-0.44 [facility] Comment on above: Performed By: #### L ACDS #### [address] [address] Swaging Machine Adjuster: Ronn Arias MD Abs.Imm.Granulocyte 0.09 k/uL Normal 0.00-0.30 [facility] Comment on above: Performed By: #### L ACDS #### [address] [address] Swaging Machine Adjuster: Ronn Arias MD Abs.Neutrophil (Seg) 11.26 k/uL High 1.50-8.10 [facility] Comment on above: Performed By: #### L ACDS #### [address] [address] Swaging Machine Adjuster: Ronn Arias MD Basophils/100 WBC (Bld) 0 % Normal 0-2 [facility] Comment on above: Performed By: #### L ACDS #### [address] [address] Swaging Machine Adjuster: Ronn Arias MD Eosinophils/100 WBC (Bld) 0 % Low 1-4 [facility] Comment on above: Performed By: #### L ACDS #### [address] [address] Swaging Machine Adjuster: Ronn Arias MD Erythrocyte distribution width (RBC) [Ratio] 14.5 % High 11.8-14.4 [facility] Comment on above: Performed By: #### L ACDS #### [address] [address] Swaging Machine Adjuster: Ronn Arias MD Hematocrit (Bld) [Volume fraction] 31.4 % Low 40.7-50.3 [facility] Comment on above: Performed By: #### L ACDS #### [address] [address] Swaging Machine Adjuster: Ronn Arias MD Hemoglobin (Bld) [Mass/Vol] 10.3 g/dL Low 13.0-17.0 [facility] Comment on above: Performed By: #### L ACDS #### [address] [address] Swaging Machine Adjuster: Ronn Arias MD Immature granulocytes/100 WBC (Bld) 1 % High 0 [facility] Comment on above: Performed By: #### L ACDS #### [address] [address] Swaging Machine Adjuster: Ronn Arias MD Lymphocytes (Bld) [#/Vol] 0.76 10*3/uL Low 1.10-3.70 [facility] Comment on above: Performed By: #### L ACDS #### [address] [address] Swaging Machine Adjuster: Ronn Arias MD Lymphocytes/100 WBC (Bld) 6 % Low 24-43 [facility] Comment on above: Performed By: #### L ACDS #### [address] [address] Swaging Machine Adjuster: Ronn Arias MD MCH (RBC) [Entitic mass] 27.5 pg Normal 25.2-33.5 [facility] Comment on above: Performed By: #### L ACDS #### [address] [address] Swaging Machine Adjuster: Ronn Arias MD MCHC (RBC) [Mass/Vol] 32.8 g/dL Normal 28.4-34.8 [facility] Comment on above: Performed By: #### L ACDS #### [address] [address] Swaging Machine Adjuster: Ronn Arias MD MCV (RBC) [Entitic vol] 83.7 fL Normal 82.6-102.9 [facility] Comment on above: Performed By: #### L ACDS #### [address] [address] Swaging Machine Adjuster: Ronn Arias MD Monocytes (Bld) [#/Vol] 0.39 10*3/uL Normal 0.10-1.20 [facility] Comment on above: Performed By: #### L ACDS #### [place] [address] Swaging Machine Adjuster: Ronn Arias MD Monocytes/100 WBC (Bld) 3 % Normal 3-12 [facility] Comment on above: Performed By: #### L ACDS #### [place] [address] Swaging Machine Adjuster: Ronn Arias MD Neutrophil (Seg) 90 % High 36-65 [facility] Comment on above: Performed By: #### L ACDS #### [address] [address] Swaging Machine Adjuster: Ronn Arias MD NRBC Automated 0.0 per 100 WBC Normal 0.0 [facility] Comment on above: Performed By: #### L ACDS #### [place] [address] Swaging Machine Adjuster: Ronn Arias MD Platelet mean volume (Bld) [Entitic vol] 10.9 fL Normal 8.1-13.5 [facility] Comment on above: Performed By: #### L ACDS #### [address] [address] Swaging Machine Adjuster: Ronn Arias MD Platelets (Bld) [#/Vol] 170 10*3/uL Normal 138-453 [facility] Comment on above: Performed By: #### L ACDS #### [address] [address] Swaging Machine Adjuster: Ronn Arias MD RBC (Bld) [#/Vol] 3.75 10*6/uL Low 4.21-5.77 [facility] Comment on above: Performed By: #### L ACDS #### [address] [address] Swaging Machine Adjuster: Ronn Arias MD RBC morphology finding Nom (Bld) ANISOCYTOSIS PRESENT Normal [facility] Comment on above: Performed By: #### L ACDS #### [address] [address] Swaging Machine Adjuster: Ronn Arias MD WBC (Bld) [#/Vol] 12.5 10*3/uL High 3.5-11.3 [facility] Comment on above: Performed By: #### L ACDS #### [address] [address] Swaging Machine Adjuster: Ronn Arias MD EOSINOPHILS, URINEon 022 Eosinophil, Ur NONE SEEN NONE SEEN [facility] Eosinophils, Urineon 022 Eosinophils, Urine NONE SEEN Normal NSN [facility] Comment on above: Performed By: #### U RNA, URTPRT, UMICAO, UEOS, UA #### [address] [address] Swaging Machine Adjuster: Ronn Arias MD Free [place] + Lambdaon 2021 Free [place] Lt Chains 4.01 mg/dL High 0.37-1.94 [facility] Comment on above: Performed By: #### U RNA, URTPRT, UMICAO, UEOS, UA #### [address] [address] Swaging Machine Adjuster: Ronn Arias MD Free [place]/Lambda Rat 1.94 High 0.26-1.65 [facility] Comment on above: Performed By: #### U RNA, URTPRT, UMICAO, UEOS, UA #### [facility] [address] [place], [place] [phone] Swaging Machine Adjuster: Ronn Arias MD Free Lambda Lt Chains 2.07 mg/dL Normal 0.57-2.63 [facility] Comment on above: Performed By: #### U RNA, URTPRT, UMICAO, UEOS, UA #### [facility] [address] [place] [address] Swaging Machine Adjuster: Ronn Arias MD Hepatic Function Panelon Albumin [Mass/Vol] 3.2 g/dL Low 3.5 - 5.2 g/dL [facility] Albumin/Globulin [Mass ratio] 0.9 {ratio} Low 1 - 2.5 [facility] ALP (Bld) [Catalytic activity/Vol] 104 U/L 40 - 129 U/L [facility] ALT [Catalytic activity/Vol] 94 U/L High 5 - 41 U/L [facility] AST [Catalytic activity/Vol] 49 U/L High NINF - 40 U/L [facility] Bilirubin [Mass/Vol] 1.1 mg/dL 0.3 - 1 .2 mg/dL [facility] [employer] Bilirubin, Indirect 0.5 mg/dL 0 - 1 mg/dL [facility] Bilirubin.indirect [Mass/Vol] 0.6 mg/dL High NINF - 0.31 mg/dL [facility] Free PSA/Total PSA [Mass fraction] 6.7 g/dL 6.4 - 8.3 g/dL [facility] [place]/Lambda Quantitative Fr ee Light Chains, Serumon 01-03-2022 Free [place]/Lambda Ratio 1.94 High 0.26 - 1.65 [facility] [employer] [facility] [employer] Interpretation and review of laboratory results Abnormal [facility] [place] Free Light Chains QNT 4.01 mg/dL High 0.37 - 1.94 mg/dL [facility] Lambda Free Light Chains QNT 2.07 mg/dL 0.57 - 2.63 mg/dL [facility] Lactate, Sepsison 01-03-2022 Lactic Acid,Sep Wbld 1.8 mmol/L Normal 0.5-1.9 [facility] Comment on above: Performed By: #### L ACDS #### [facility] [address] [place] [phone] Swaging Machine Adjuster: Ronn Arias MD Lactic Acid, Sepsis, Whole Blood 1.8 mmol/L 0.5 - 1.9 mmol/L [facility] Lactic Acid,Sep Wbld 1.4 mmol/L Normal 0.5-1.9 [facility] Comment on above: Performed By: #### U RNA, URTPRT, UMICAO, UEOS, UA #### [facility] [address] [place] [phone] Swaging Machine Adjuster: Ronn Arias MD Lactic Acid, Sepsis, Whole Blood 1.4 mmol/L 0.5 - 1.9 mmol/L [facility] Lactic Acid,Sep Wbld 1.5 mmol/L Normal 0.5-1.9 [facility] Comment on above: Performed By: #### L ACDS #### [facility] [address] [place] [phone] Swaging Machine Adjuster: Ronn Arias MD Lactic Acid, Sepsis, Whole Blood 1.5 mmol/L 0.5 - 1.9 mmol/L [facility] Lactic Acid,Sep Wbld 1.2 mmol/L Normal 0.5-1.9 [facility] Comment on above: Performed By: #### L ACDS #### [facility] [address] [place] [address] [phone] Swaging Machine Adjuster: Ronn Arias MD Lipaseon 01-03-2022 Lipase [Catalytic activity/Vol] 250 U/L High 13-60 [facility] Comment on above: Performed By: #### L ACDS #### [address] [address] Swaging Machine Adjuster: Ronn Arias MD Lipase [Catalytic activity/Vol] 250 U/L High 13 - 60 U/L [facility] Liver Profileon 01-03-2022 Albumin [Mass/Vol] 3.2 g/dL Low 3.5-5.2 [facility] Comment on above: Performed By: #### L ACDS #### [address] [address] Swaging Machine Adjuster: Ronn Arias MD Albumin/Glob Ratio 0.9 Low 1.0-2.5 [facility] Comment on above: Performed By: #### L ACDS #### [address] [address] Swaging Machine Adjuster: Ronn Arias MD Alkaline Phos 104 U/L Normal 40-129 [facility] Comment on above: Performed By: #### L ACDS #### [address] [address] Swaging Machine Adjuster: Ronn Arias MD ALT [Catalytic activity/Vol] 94 U/L High 5-41 [facility] Comment on above: Performed By: #### L ACDS #### [address] [address] Swaging Machine Adjuster: Ronn Arias MD AST [Catalytic activity/Vol] 49 U/L High <40 [facility] Comment on above: Performed By: #### L ACDS #### [address] [address] Swaging Machine Adjuster: Ronn Arias MD Bilirubin [Mass/Vol] 1.1 mg/dL Normal 0.3-1.2 [facility] Comment on above: Performed By: #### L ACDS #### [facility] [address] [place] [address] Swaging Machine Adjuster: Ronn Arias MD Bilirubin, Indirect 0.5 mg/dL Normal 0.00-1.00 [facility] Comment on above: Performed By: #### L ACDS #### [facility] [place] [address] Swaging Machine Adjuster: Ronn Arias MD Bilirubin.indirect [Mass/Vol] 0.6 mg/dL High <0.31 [facility] Comment on above: Performed By: #### L ACDS #### [facility] [employer] [address] [place] [phone] Swaging Machine Adjuster: Ronn Arias MD Protein [Mass/Vol] 6.7 g/dL Normal 6.4-8.3 [facility] Comment on above: Performed By: #### L ACDS #### [facility] [address] [place] [address] Swaging Machine Adjuster: Ronn Arias MD Microscopic Urinalysison Casts UA 2 TO 5 HYALINE Refer ence range defined for non-centrifuged specimen. [facility] Epithelial Cells UA None [facility] RBC, UA 2 TO 5 [facility] Comment on above: Reference range defi juan for non-centrifuged specimen. WBC, UA 2 TO 5 [facility] No Panel Informationon 01-03 [facility] Interpretation and review of laboratory results Abnormal [facility] Procalcitoninon 01-03-2022 Procalcitonin 16.48 ng/mL High <0.09 [facility] Comment on above: Result Comment: Suspected [...] entered into the Change in Procalcitonin Calculator (www.gnxdrb-ddh-rcouulvufl.eyesFinder) to determine the patient's Mortality Risk Prognosis In healthy neonates, plasma Procalcitonin (PCT) concentrations increase gradually after , reaching peak values at about 24 hours of age then decrease to normal values below 0.5 ng/mL by 48-72 hours of age. Performed By: #### L ACDS #### [employer] [address] [place] [address] Swaging Machine Adjuster: Ronn Arias MD Interpretation and review of laboratory results Abnormal [facility] [employer] Procalcitonin 16.48 ng/mL High NINF - 0.09 ng/mL [facility] [employer] Comment on above: Suspected Sepsis: <0.50 ng/mL [...] entered into the Change in Procalcitonin Calculator (www.gieian-xex-pyvfylimir.eyesFinder) to determine the patient's Mortality Risk Prognosis In healthy neonates, plasma Procalcitonin (PCT) concentrations increase gradually after , reaching peak values at about 24 hours of age then decrease to normal values below 0.5 ng/mL by 48-72 hours of age. [facility] [employer] Protein / creatinine ratio, urineon 01-03-2022 Creatinine, Ur 84.8 mg/dL 39 - 259 mg/dL [facility] [employer] Protein (U) [Mass/Vol] 16 mg/dL [facility] [employer] Comment on above: No normal range esta blished. Urine Total Protein Creatinine Ratio 0.19 0 - 0.2 [facility] Protein,Tot,Allen Uron 2021 Creatinine [Mass/Vol] 84.8 mg/dL Normal 39.0-259.0 [facility] Comment on above: Performed By: #### U RNA, URTPRT, UMICAO, UEOS, UA #### [employer] [address] [place], [place] [phone] Swaging Machine Adjuster: Ronn Arias MD Tot Prot. Conc. 16 mg/dL Normal [facility] Comment on above: Result Comment: No n ormal range established. Performed By: #### U RNA, URTPRT, UMICAO, UEOS, UA #### [facility] [address] [place], [place] [phone] Swaging Machine Adjuster: Ronn Arias MD TP/Cre Ratio 0.19 Normal 0.00-0.20 [facility] Comment on above: Performed By: #### U RNA, URTPRT, UMICAO, UEOS, UA #### [facility] [address] [place], [place] [phone] Swaging Machine Adjuster: Ronn Arias MD SODIUM, URINE, RANDOMon 12-21 Sodium (U) [Moles/Vol] 83 mmol/L [facility] Comment on above: No normal [...] two black choleliths, each measuring 0.5 cm. House Registry Rn sections 1c to include cystic duct margin (inked blue), fundus, body and neck. tm Microscopic Description Microscopic examination performed. SURGICAL PATHOLOGY CONSULTATION Patient Name: YOLI ANTUNEZ [facility] Rec: [id number] Path Number: [id number] [facility] ANATOMIC PATHOLOGY [address] [place] [address]. [place], [place] [address] [facility] Sodium, Random Uron 01-04-20 Sodium (U) [Moles/Vol] 83 mmol/L Normal [facility] Comment on above: Result Comment: No n ormal range established. Performed By: #### U RNA, URTPRT, UMICAO, UEOS, UA #### [employer] [address] [place] [address] [phone] Swaging Machine Adjuster: Ronn Arias MD Urinalysison 01-03-2022 Bilirubin Urine Negative NEGATIVE [facility] Color, UA Yellow Yellow [facility] Glucose, Ur Negative NEGATIVE [facility] Interpretation and review of laboratory results Abnormal [facility] Ketones Ql (U) Negative NEGATIVE [facility] Leukocyte esterase Test strip Ql (U) Negative NEGATIVE [facility] Nitrite, Urine Negative NEGATIVE [facility] pH, UA 5.5 5 - 8 [facility] Protein, UA TRACE Abnormal NEGATIVE [facility] Specific [place], UA 1.014 1.005 - 1.03 [facility] Turbidity UA Clear Clear [facility] Urine Hgb TRACE Abnormal NEGATIVE [facility] Urobilinogen, Urine Normal Normal [facility] Urinalysis, Routineon 2021 Bilirubin, SemiQt,Ur Negative Normal NEG [facility] Comment on above: Performed By: #### U RNA, URTPRT, UMICAO, UEOS, UA #### [facility] [address] [place] [phone] Swaging Machine Adjuster: Ronn Arias MD Blood, Urine TRACE Abnormal NEG [facility] Comment on above: Performed By: #### U RNA, URTPRT, UMICAO, UEOS, UA #### [facility] [employer] [employer] [address] [place] [phone] Swaging Machine Adjuster: Ronn Arias MD Clarity (U) Clear Normal CLEAR [facility] Comment on above: Performed By: #### U RNA, URTPRT, UMICAO, UEOS, UA #### [facility] [employer] [employer] [address] [place] [phone] Sw[employer] Adjuster: Ronn Arias MD Color (U) Yellow Normal YEL [facility] Comment on above: Performed By: #### U RNA, URTPRT, UMICAO, UEOS, UA #### [facility] [employer] [address] [place] [address] Swaging Machine Adjuster: Ronn Arias MD Glucose Ql (U) Negative Normal NEG [facility] Comment on above: Performed By: #### U RNA, URTPRT, UMICAO, UEOS, UA #### [employer] [employer] [address] [place] [phone] Swaging Machine Adjuster: Ronn Arias MD Ketones Ql (U) Negative Normal NEG [facility] Comment on above: Performed By: #### U RNA, URTPRT, UMICAO, UEOS, UA #### [employer] [facility] [address] [place] [address] [place] [address] Swaging Machine Adjuster: Ronn Arias MD Leukocyte esterase Test strip Ql (U) Negative Normal NEG [facility] Comment on above: Performed By: #### U RNA, URTPRT, UMICAO, UEOS, UA #### [address] [address] [employer] Machine Adjuster: Ronn Arias MD Nitrite,Ur Negative Normal NEG [facility] Comment on above: Performed By: #### U RNA, URTPRT, UMICAO, UEOS, UA #### [address] [address] [employer] Adjuster: Ronn Arias MD PH,Ur 5.5 Normal 5.0-8.0 [facility] Comment on above: Performed By: #### U RNA, URTPRT, UMICAO, UEOS, UA #### [address] [address] Swaging Machine Adjuster: Ronn Arias MD Protein Ql (U) TRACE Abnormal NEG [facility] Comment on above: Performed By: #### U RNA, URTPRT, UMICAO, UEOS, UA #### [address] [address] Swaging Machine Adjuster: Ronn Arias MD Spec. [place],Ur 1.014 Normal 1.005-1.03 0 [facility] Comment on above: Performed By: #### U RNA, URTPRT, UMICAO, UEOS, UA #### [address] [address] Swaging Machine Adjuster: Ronn Arias MD Urobilinogen,Ur Normal Normal NORM [facility] Comment on above: Performed By: #### U RNA, URTPRT, UMICAO, UEOS, UA #### [address] [phone] Swaging Machine Adjuster: Ronn Arias MD Urinalysis,Microon 2 Casts 2 TO 5 HYALINE Normal 0-8 [facility] Comment on above: Result Comment: Refe rence range defined for non-centrifuged specimen. Performed By: #### U RNA, URTPRT, UMICAO, UEOS, UA #### [facility] [address] [place] [address] Swaging Machine Adjuster: Ronn Arias MD Epithelial cells LM Ql (Urine sed) None Normal 0-5 [facility] Comment on above: Performed By: #### U RNA, URTPRT, UMICAO, UEOS, UA #### [facility] [address] [place] [address] Swaging Machine Adjuster: Ronn Arias MD Urine RBC's 2 TO 5 Normal 0-4 [facility] Comment on above: Result Comment: Refe rence range defined for non-centrifuged specimen. Performed By: #### U RNA, URTPRT, UMICAO, UEOS, UA #### [facility] [address] [place] [address] Swaging Machine Adjuster: Ronn Arias MD Urine WBC's 2 TO 5 Normal 0-5 [facility] Comment on above: Performed By: #### U RNA, URTPRT, UMICAO, UEOS, UA #### [facility] [address] [place], [place] [phone] Swaging Machine Adjuster: Ronn Arias MD Basic Metab w/rfx MGon 01-02 (cont.) Normal [facility] Comment on above: Result Comment: Aver age GFR for 60-69 years old: 85 mL/min/1.73sq m Chronic Kidney Disease: <60 mL/min/1.73sq m Kidney failure: <15 mL/min/1.73sq m eGFR calculated using average adult body mass. Additional eGFR calculator available at: http://www.Synlogic.com/multiple_crcl_2012.htm Performed By: #### L ACDS #### [address] [address] Swaging Machine Adjuster: Ronn Arias MD Anion gap [Moles/Vol] 14 mmol/L Normal 9-17 [facility] Comment on above: Performed By: #### L ACDS #### [address] [address] Swaging Machine Adjuster: Ronn Arias MD Calcium [Mass/Vol] 7.2 mg/dL Low 8.6-10.4 [facility] Comment on above: Performed By: #### L ACDS #### [address] [address] Swaging Machine Adjuster: Ronn Arias MD Chloride [Moles/Vol] 108 mmol/L High 98-107 [facility] Comment on above: Performed By: #### L ACDS #### [address] [address] Swaging Machine Adjuster: Ronn Arias MD CO2 [Moles/Vol] 20 mmol/L Normal 20-31 [facility] Comment on above: Performed By: #### L ACDS #### [address] [address] Swaging Machine Adjuster: Ronn Arias MD Creatinine [Mass/Vol] 3.51 mg/dL High 0.70-1.20 [facility] Comment on above: Performed By: #### L ACDS #### [address] [address] Swaging Machine Adjuster: Ronn Arias MD GFR, Amer 21 mL/min Low >60 [facility] Comment on above: Performed By: #### L ACDS #### [address] [address] Swaging Machine Adjuster: Ronn Arias MD GFR,non Amer 17 mL/min Low >60 [facility] Comment on above: Performed By: #### L ACDS #### [address] [address] Swaging Machine Adjuster: Ronn Arias MD Glucose [Mass/Vol] 122 mg/dL High 70-99 [facility] Comment on above: Performed By: #### L ACDS #### [address] [address] Swaging Machine Adjuster: Ronn Arias MD Potassium [Moles/Vol] 5.0 mmol/L Normal 3.7-5.3 [facility] Comment on above: Performed By: #### L ACDS #### [address] [address] Swaging Machine Adjuster: Ronn Arias MD Sodium [Moles/Vol] 142 mmol/L Normal 135-144 [facility] Comment on above: Performed By: #### L ACDS #### [address] [address] Swaging Machine Adjuster: Ronn Arias MD Urea nitrogen [Mass/Vol] 55 mg/dL High 8-23 [facility] Comment on above: Performed By: #### L ACDS #### [address] [address] Swaging Machine Adjuster: Ronn Arias MD (cont.) Normal [facility] Comment on above: Result Comment: Aver age GFR for 60-69 years old: 85 mL/min/1.73sq m Chronic Kidney Disease: <60 mL/min/1.73sq m Kidney failure: <15 mL/min/1.73sq m eGFR calculated using average adult body mass. Additional eGFR calculator available at: http://www.Synlogic.eyesFinder/multiple_crcl_2012.htm Performed By: #### L IVP, BMPX, LIP, CDP #### [address] [address] Swaging Machine Adjuster: Ronn Arias MD Anion gap [Moles/Vol] 14 mmol/L Normal 9-17 [facility] Comment on above: Performed By: #### L IVP, BMPX, LIP, CDP #### [facility] [employer] [address] [place] [address] Swaging Machine Adjuster: Ronn Arias MD Calcium [Mass/Vol] 7.2 mg/dL Low 8.6-10.4 [facility] Comment on above: Performed By: #### L IVP, BMPX, LIP, CDP #### [facility] [address] [place] [address] Swaging Machine Adjuster: Ronn Arias MD Chloride [Moles/Vol] 109 mmol/L High 98-107 [facility] Comment on above: Performed By: #### L IVP, BMPX, LIP, CDP #### [facility] [employer] [address] [place] [address] Swaging Machine Adjuster: Ronn Arias MD CO2 [Moles/Vol] 18 mmol/L Low 20-31 [facility] Comment on above: Performed By: #### L IVP, BMPX, LIP, CDP #### [facility] [employer] [address] [place] [address] Swaging Machine Adjuster: Ronn Arias MD Creatinine [Mass/Vol] 4.02 mg/dL High 0.70-1.20 [facility] Comment on above: Performed By: #### L IVP, BMPX, LIP, CDP #### [facility] [employer] [employer] [address] [place] [address] Swaging Machine Adjuster: Ronn Arias MD GFR, Amer 18 mL/min Low >60 [facility] Comment on above: Performed By: #### L IVP, BMPX, LIP, CDP #### [facility] [employer] [address] [place] [phone] Swaging Machine Adjuster: Ronn Arias MD GFR,non Amer 15 mL/min Low >60 [facility] Comment on above: Performed By: #### L IVP, BMPX, LIP, CDP #### [facility] [address] [place] [address] Swaging Machine Adjuster: Ronn Arias MD Glucose [Mass/Vol] 106 mg/dL High 70-99 [facility] Comment on above: Performed By: #### L IVP, BMPX, LIP, CDP #### [facility] [address] [place] [address] Swaging Machine Adjuster: Ronn Arias MD Potassium [Moles/Vol] 4.6 mmol/L Normal 3.7-5.3 [facility] Comment on above: Performed By: #### L IVP, BMPX, LIP, CDP #### [facility] [address] [place] [address] Swaging Machine Adjuster: Ronn Arias MD Sodium [Moles/Vol] 141 mmol/L Normal 135-144 [facility] Comment on above: Performed By: #### L IVP, BMPX, LIP, CDP #### [facility] [address] [place] [address] Swaging Machine Adjuster: Ronn Arias MD Urea nitrogen [Mass/Vol] 63 mg/dL High 8-23 [facility] Comment on above: Performed By: #### L IVP, BMPX, LIP, CDP #### [facility] [place] [address] Swaging Machine Adjuster: Ronn Arias MD Basic Metabolic Panel w/ Ref luz to MGon 01-02-2022 Anion gap [Moles/Vol] 14 mmol/L 9 - 17 mmol/L [facility] Calcium [Mass/Vol] 7.2 mg/dL Low 8.6 - 10. 4 mg/dL [facility] Chloride [Moles/Vol] 108 mmol/L High 98 - 10 7 mmol/L [facility] CO2 [Moles/Vol] 20 mmol/L 20 - 31 mmol/L [facility] Creatinine [Mass/Vol] 3.51 mg/dL High 0.7 - 1.2 mg/dL [facility] GFR 21 mL/min Low 60 - PI NF mL/min [facility] [employer] GFR Non- 17 mL/min Low 60 - PINF mL/min [facility] GFR/1.73 sq M.predicted MDRD (S/P/Bld) [Vol rate/Area] [facility] Comment on above: Average GFR for 60-6 9 years old: 85 mL/min/1.73sq m Chronic Kidney Disease: <60 mL/min/1.73sq m Kidney failure: <15 mL/min/1.73sq m eGFR calculated using average adult body mass. Additional eGFR calculator available at: http://www.Compumatrix/multiple_crcl_2011.htm Glucose [Mass/Vol] 122 mg/dL High 70 - 99 mg/dL [facility] Interpretation and review of laboratory results Abnormal [facility] Potassium [Moles/Vol] 5.0 mmol/L 3.7 - 5.3 mmol/L [facility] Sodium [Moles/Vol] 142 mmol/L 135 - 144 mmol/L [facility] Urea nitrogen (BldV) [Mass/Vol] 55 mg/dL High 8 - 23 mg/dL [facility] Anion gap [Moles/Vol] 14 mmol/L 9 - 17 mmol/L [facility] Calcium [Mass/Vol] 7.2 mg/dL Low 8.6 - 10. 4 mg/dL [facility] Chloride [Moles/Vol] 109 mmol/L High 98 - 10 7 mmol/L [facility] CO2 [Moles/Vol] 18 mmol/L Low 20 - 31 mmol/L [facility] Creatinine [Mass/Vol] 4.02 mg/dL High 0.7 - 1.2 mg/dL [facility] [employer] GFR 18 mL/min Low 60 - PI NF mL/min [facility] GFR Non- 15 mL/min Low 60 - PINF mL/min [facility] GFR/1.73 sq M.predicted MDRD (S/P/Bld) [Vol rate/Area] [facility] Comment on above: Average GFR for 60-6 9 years old: 85 mL/min/1.73sq m Chronic Kidney Disease: <60 mL/min/1.73sq m Kidney failure: <15 mL/min/1.73sq m eGFR calculated using average adult body mass. Additional eGFR calculator available at: http://www.Compumatrix/multiple_crcl_2012.htm Glucose [Mass/Vol] 106 mg/dL High 70 - 99 mg/dL [facility] Potassium [Moles/Vol] 4.6 mmol/L 3.7 - 5.3 mmol/L [facility] Sodium [Moles/Vol] 141 mmol/L 135 - 144 mmol/L [facility] Urea nitrogen (BldV) [Mass/Vol] 63 mg/dL High 8 - 23 mg/dL [facility] CBC with Auto Differentialon 01-02-2022 Absolute Eos # 0.12 [facility] Absolute Immature Granulocyte 0.00 [facility] Absolute Lymph # 0.37 Low [facility] Absolute Foster # 0.49 [facility] Basophils (Bld) [#/Vol] 0.00 10*3/uL [facility] Basophils/100 WBC (Bld) 0 % 0 - 2 % [facility] Eosinophils/100 WBC (Bld) 1 % 1 - 4 % [facility] Hematocrit (Bld) [Volume fraction] 30.4 % Low 40.7 - 50.3 % [facility] Hemoglobin (Bld) [Mass/Vol] 10.2 g/dL Low 13 - 17 g/dL [facility] Immature granulocytes/100 WBC (Bld) 0 % 0 [facility] Interpretation and review of laboratory results Abnormal [facility] Lymphocytes/100 WBC (Bld) 3 % Low 24 - 44 % [facility] MCH (RBC) [Entitic mass] 28.0 pg 25.2 - 33.5 pg [facility] MCHC (RBC) [Mass/Vol] 33.6 g/dL 28.4 - 34.8 g/dL [facility] MCV (RBC) [Entitic vol] 83.5 fL 82.6 - 102.9 fL [facility] Monocytes/100 WBC (Bld) 4 % 1 - 7 % [facility] Morphology Gordon (Bld) [Interp] Normal [facility] NRBC Automated 0.0 0.0 per 100 WBC [facility] Platelet distribution width (Bld) [Ratio] 14.4 % 11.8 - 14.4 % [facility] Platelet mean volume (Bld) [Entitic vol] 10.3 fL 8.1 - 13.5 fL [facility] Platelets (Bld) [#/Vol] 150 10*3/uL [facility] RBC (Bld) [#/Vol] 3.64 10*6/uL Low 4.21 - 5.77 m/uL [facility] Segmented neutrophils/100 WBC (Bld) 92 % High 36 - 66 % [facility] Segs Absolute 11.22 High [facility] WBC (Bld) [#/Vol] 12.2 10*3/uL High [facility] S [facility] CBC with Diffon 01-02-2022 Abs. Basophil 0.00 k/uL Normal 0.0-0.2 [facility] Comment on above: Performed By: #### L ACDS #### [facility] [place] [id number] Swaging Machine Adjuster: Ronn Arias MD Abs.Imm.Granulocyte 0.00 k/uL Normal 0.00-0.30 [facility] Comment on above: Performed By: #### L ACDS #### [facility] [place], [place] [phone] Swaging Machine Adjuster: Ronn Arias MD Abs.Neutrophil (Seg) 11.22 k/uL High 1.8-7.7 [facility] Comment on above: Performed By: #### L ACDS #### [address] [address] Swaging Machine Adjuster: Ronn Arias MD Basophils/100 WBC (Bld) 0 % Normal 0-2 [facility] Comment on above: Performed By: #### L ACDS #### [address] [address] Swaging Machine Adjuster: Ronn Arias MD Eosinophils (Bld) [#/Vol] 0.12 10*3/uL Normal 0.0-0.4 [facility] Comment on above: Performed By: #### L ACDS #### [address] [address] Swaging Machine Adjuster: Ronn Arias MD Eosinophils/100 WBC (Bld) 1 % Normal 1-4 [facility] Comment on above: Performed By: #### L ACDS #### [address] [address] Swaging Machine Adjuster: Ronn Arias MD Immature granulocytes/100 WBC (Bld) 0 % Normal 0 [facility] Comment on above: Performed By: #### L ACDS #### [address] [address] Swaging Machine Adjuster: Ronn Arias MD Lymphocytes (Bld) [#/Vol] 0.37 10*3/uL Low 1.0-4.8 [facility] Comment on above: Performed By: #### L ACDS #### [address] [address] Swaging Machine Adjuster: Ronn Arias MD Lymphocytes/100 WBC (Bld) 3 % Low 24-44 [facility] Comment on above: Performed By: #### L ACDS #### [address] [address] Swaging Machine Adjuster: Ronn Arias MD Monocytes (Bld) [#/Vol] 0.49 10*3/uL Normal 0.1-0.8 [facility] Comment on above: Performed By: #### L ACDS #### [address] [address] Swaging Machine Adjuster: Ronn Arias MD Monocytes/100 WBC (Bld) 4 % Normal 1-7 [facility] Comment on above: Performed By: #### L ACDS #### [address] [address] Swaging Machine Adjuster: Ronn Arias MD Morphology Gordon (Bld) [Interp] Normal Normal [facility] Comment on above: Performed By: #### L ACDS #### [address] [address] Swaging Machine Adjuster: Ronn Arias MD Neutrophil (Seg) 92 % High 36-66 [facility] Comment on above: Performed By: #### L ACDS #### [address] [address] Swaging Machine Adjuster: Ronn Arias MD Erythrocyte distribution width (RBC) [Ratio] 14.4 % Normal 11.8-14.4 [facility] Comment on above: Performed By: #### L ACDS #### [address] [address] Swaging Machine Adjuster: Ronn Arias MD Hematocrit (Bld) [Volume fraction] 30.4 % Low 40.7-50.3 [facility] Comment on above: Performed By: #### L ACDS #### [address] [address] Swaging Machine Adjuster: Ronn Arias MD Hemoglobin (Bld) [Mass/Vol] 10.2 g/dL Low 13.0-17.0 [facility] Comment on above: Performed By: #### L ACDS #### [address] [address] Swaging Machine Adjuster: Ronn Arias MD MCH (RBC) [Entitic mass] 28.0 pg Normal 25.2-33.5 [facility] Comment on above: Performed By: #### L ACDS #### [address] [address] Swaging Machine Adjuster: Ronn Arias MD MCHC (RBC) [Mass/Vol] 33.6 g/dL Normal 28.4-34.8 [facility] Comment on above: Performed By: #### L ACDS #### [address] [address] Swaging Machine Adjuster: Ronn Arias MD MCV (RBC) [Entitic vol] 83.5 fL Normal 82.6-102.9 [facility] Comment on above: Performed By: #### L ACDS #### [address] [address] Swaging Machine Adjuster: Ronn Arias MD NRBC Automated 0.0 per 100 WBC Normal 0.0 [facility] Comment on above: Performed By: #### L ACDS #### [address] [address] Swaging Machine Adjuster: Ronn Arias MD Platelet mean volume (Bld) [Entitic vol] 10.3 fL Normal 8.1-13.5 [facility] Comment on above: Performed By: #### L ACDS #### [address] [address] Swaging Machine Adjuster: Ronn Arias MD Platelets (Bld) [#/Vol] 150 10*3/uL Normal 138-453 [facility] Comment on above: Performed By: #### L ACDS #### [address] [address] Swaging Machine Adjuster: Ronn Arias MD RBC (Bld) [#/Vol] 3.64 10*6/uL Low 4.21-5.77 [facility] Comment on above: Performed By: #### L ACDS #### [facility] [address] [place], [place] [phone] Swaging Machine Adjuster: Ronn Arias MD WBC (Bld) [#/Vol] 12.2 10*3/uL High 3.5-11.3 [facility] Comment on above: Performed By: #### L ACDS #### [facility] [address] [place], [place] [id number] Swaging Machine Adjuster: Ronn Arias MD Cult,Urineon 01-02-2022 Cult,Urine Specimen Description .URINE Culture NO GROWTH Report Status FINAL 01/02/2022 Normal [facility] Comment on above: Performed By: #### U RNA, URTPRT, UMICAO, UEOS, UA #### [facility] [address] [place], [place] [id number] Swaging Machine Adjuster: Ronn Arias MD Culture, Urineon 01-02-2022 Bacteria identified Cx Nom (U) NO GROWTH [facility] [employer] Specimen Description .URINE [facility] [employer] [facility] [employer] Hepatic Function Panelon Albumin [Mass/Vol] 2.9 g/dL Low 3.5 - 5.2 g/dL [facility] [employer] Albumin/Globulin [Mass ratio] 0.9 {ratio} Low 1 - 2.5 [facility] [employer] ALP (Bld) [Catalytic activity/Vol] 96 U/L 40 - 129 U/L [facility] [employer] ALT [Catalytic activity/Vol] 123 U/L High 5 - 41 U/L [facility] [employer] AST [Catalytic activity/Vol] 50 U/L High NINF - 40 U/L [facility] [employer] Bilirubin [Mass/Vol] 1.8 mg/dL High 0.3 - 1 .2 mg/dL [facility] [employer] Bilirubin, Indirect 0.7 mg/dL 0 - 1 mg/dL [facility] Bilirubin.indirect [Mass/Vol] 1.1 mg/dL High NINF - 0.31 mg/dL [facility] Free PSA/Total PSA [Mass fraction] 6.1 g/dL Low 6.4 - 8.3 g/dL [facility] Lactate, Sepsison 01-02-2022 Lactic Acid, Sepsis, Whole Blood 1.2 mmol/L 0.5 - 1.9 mmol/L [facility] Lactic Acid,Sep Wbld 1.3 mmol/L Normal 0.5-1.9 [facility] Comment on above: Performed By: #### U RNA, URTPRT, UMICAO, UEOS, UA #### [facility] [address] [place], [place] [phone] [employer] Adjuster: Ronn Arias MD Lactic Acid, Sepsis, Whole Blood 1.3 mmol/L 0.5 - 1.9 mmol/L [facility] Lactic Acid,Sep Wbld 1.0 mmol/L Normal 0.5-1.9 [facility] Comment on above: Performed By: #### U RNA, URTPRT, UMICAO, UEOS, UA #### [facility] [address] [place] [address] Sw[employer] Machine Adjuster: Ronn Arias MD Lactic Acid, Sepsis, Whole Blood 1.0 mmol/L 0.5 - 1.9 mmol/L [facility] Lactic Acid,Sep Wbld 0.9 mmol/L Normal 0.5-1.9 [facility] Comment on above: Performed By: #### U RNA, URTPRT, UMICAO, UEOS, UA #### [facility] [address] [place], [place] [phone] Swaging Machine Adjuster: Ronn Arias MD Lactic Acid, Sepsis, Whole Blood 0.9 mmol/L 0.5 - 1.9 mmol/L [facility] Lipaseon 01-02-2022 Lipase [Catalytic activity/Vol] 1280 U/L High 13-60 [facility] Comment on above: Performed By: #### L IVP, BMPX, LIP, CDP #### [facility] [address] [place] [address] [employer] Machine Adjuster: Ronn Arias MD Interpretation and review of laboratory results Abnormal [facility] Lipase [Catalytic activity/Vol] 1280 U/L High 13 - 60 U/L [facility] Liver Profileon 01-02-2022 Albumin [Mass/Vol] 2.9 g/dL Low 3.5-5.2 [facility] Comment on above: Performed By: #### L IVP, BMPX, LIP, CDP #### [facility] [address] [place] [address] Sw[employer] Machine Adjuster: Ronn Arias MD Albumin/Glob Ratio 0.9 Low 1.0-2.5 [facility] Comment on above: Performed By: #### L IVP, BMPX, LIP, CDP #### [facility] [address] [place] [address] [employer] Adjuster: Ronn Arias MD Alkaline Phos 96 U/L Normal 40-129 [facility] Comment on above: Performed By: #### L IVP, BMPX, LIP, CDP #### [facility] [address] [place] [address] [employer] Adjuster: Ronn Arias MD ALT [Catalytic activity/Vol] 123 U/L High 5-41 [facility] Comment on above: Performed By: #### L IVP, BMPX, LIP, CDP #### [facility] [address] [place] [address] [employer] Adjuster: Ronn Arias MD AST [Catalytic activity/Vol] 50 U/L High <40 [facility] Comment on above: Performed By: #### L IVP, BMPX, LIP, CDP #### [facility] [address] [place] [address] [employer] Adjuster: Ronn Arias MD Bilirubin [Mass/Vol] 1.8 mg/dL High 0.3-1.2 [facility] Comment on above: Performed By: #### L IVP, BMPX, LIP, CDP #### [facility] [address] [place] [address] [employer] Adjuster: Ronn Arias MD Bilirubin, Indirect 0.7 mg/dL Normal 0.00-1.00 [facility] Comment on above: Performed By: #### L IVP, BMPX, LIP, CDP #### [facility] [address] [place] [address] [employer] Machine Adjuster: Ronn Arias MD Bilirubin.indirect [Mass/Vol] 1.1 mg/dL High <0.31 [facility] Comment on above: Performed By: #### L IVP, BMPX, LIP, CDP #### [facility] [employer] [employer] [address] [place] [address] [employer] Machine Adjuster: Ronn Arias MD Protein [Mass/Vol] 6.1 g/dL Low 6.4-8.3 [facility] Comment on above: Performed By: #### L IVP, BMPX, LIP, CDP #### [facility] [employer] [address] [place] [address] [employer] Adjuster: Ronn Arias MD No Panel Informationon 01-02 Interpretation and review of laboratory results Abnormal [facility] Protein,Tot,Allen Uron 2021 Tot Prot. Conc. 59 mg/dL Normal [facility] Comment on above: Result Comment: No n ormal range established. Performed By: #### U RNA, URTPRT, UMICAO, UEOS, UA #### [facility] [employer] [employer] [address] [place] [address] [employer] Adjuster: Ronn Arias MD Surgical Pathologyon 022 Surgical [...] two black choleliths, each measuring 0.5 cm. House Registry Rn sections 1c to include cystic duct margin (inked blue), fundus, body and neck. tm Microscopic Description Microscopic examination performed. SURGICAL PATHOLOGY CONSULTATION Patient Name: YOLI ANTUNEZ [facility] Rec: [id number] Path Number: [id number] [facility] ANATOMIC PATHOLOGY [address] [place] [phone] [facility] Comment on above: Performed By: #### L ACDS #### [facility] [address] [place] [id number] [employer] Adjuster: Ronn Arias MD US RENAL LIMITEDon US [...] Naif Bean MD 01/02/22 Final result Normal [facility] Unremarkable renal ultrasound. No hydronephrosis. [facility] EXAMINATION: ULTRASOUND OF THE KIDNEYS 01/02/2022 [...] Gross preservation of the bilateral corticomedullary differentiation. [facility] Naif Bean MD - 01/02/2022 EXAMINATION: [...] differentiation. IMPRESSION: Unremarkable renal ultrasound. No hydronephrosis. [facility] Phone: Radiology Study observation (narrative) [facility] Phone: US RENAL LIMITEDOrdered By: Naif Bean on 01-02-2022 [facility] [employer] Work Phone: Basic Metabolic Panelon 12-21 Anion gap [Moles/Vol] 14 mmol/L 9 - 17 mmol/L [facility] Calcium [Mass/Vol] 6.4 mg/dL Low 8.6 - 10. 4 mg/dL [facility] Chloride [Moles/Vol] 106 mmol/L 98 - 10 7 mmol/L [facility] CO2 [Moles/Vol] 19 mmol/L Low 20 - 31 mmol/L [facility] Creatinine [Mass/Vol] 3.73 mg/dL High 0.7 - 1.2 mg/dL [facility] Comment on above: ICTERIC SPECIMEN GFR 20 mL/min Low 60 - PI NF mL/min [facility] GFR Non- 16 mL/min Low 60 - PINF mL/min [email or web address] GFR/1.73 sq M.predicted MDRD (S/P/Bld) [Vol rate/Area] [facility] Comment on above: Average GFR for 60-6 9 years old: 85 mL/min/1.73sq m Chronic Kidney Disease: <60 mL/min/1.73sq m Kidney failure: <15 mL/min/1.73sq m eGFR calculated using average adult body mass. Additional eGFR calculator available at: http://www.Synlogic.eyesFinder/multiple_crcl_2011.htm Glucose [Mass/Vol] 114 mg/dL High 70 - 99 mg/dL [facility] Interpretation and review of laboratory results Abnormal [facility] Potassium [Moles/Vol] 4.4 mmol/L 3.7 - 5.3 mmol/L [facility] Sodium [Moles/Vol] 139 mmol/L 135 - 144 mmol/L [facility] Urea nitrogen (BldV) [Mass/Vol] 58 mg/dL High 8 - 23 mg/dL [facility] Basic Metabolic Profon 01-01 (cont.) Normal [facility] Comment on above: Result Comment: Aver age GFR for 60-69 years old: 85 mL/min/1.73sq m Chronic Kidney Disease: <60 mL/min/1.73sq m Kidney failure: <15 mL/min/1.73sq m eGFR calculated using average adult body mass. Additional eGFR calculator available at: http://www.Compumatrix/multiple_crcl_2012.htm Performed By: #### U RNA, URTPRT, UMICAO, UEOS, UA #### [employer] [address] [place] [address] Swaging Machine Adjuster: Ronn Arias MD Anion gap [Moles/Vol] 14 mmol/L Normal 9-17 [facility] Comment on above: Performed By: #### U RNA, URTPRT, UMICAO, UEOS, UA #### [facility] [address] [place] [address] Swaging Machine Adjuster: Ronn Arias MD Calcium [Mass/Vol] 6.4 mg/dL Low 8.6-10.4 [facility] Comment on above: Performed By: #### U RNA, URTPRT, UMICAO, UEOS, UA #### [employer] [address] [place] [address] 82540 Swaging Machine Adjuster: Ronn Arias MD Chloride [Moles/Vol] 106 mmol/L Normal 98-107 [facility] Comment on above: Performed By: #### U RNA, URTPRT, UMICAO, UEOS, UA #### [employer] [address] [place] [address] Swaging Machine Adjuster: Ronn Arias MD CO2 [Moles/Vol] 19 mmol/L Low 20-31 [facility] Comment on above: Performed By: #### U RNA, URTPRT, UMICAO, UEOS, UA #### [employer] [address] [place] [address] 85937 Swaging Machine Adjuster: Ronn Arias MD Creatinine [Mass/Vol] 3.73 mg/dL High 0.70-1.20 [facility] Comment on above: Result Comment: ICTE JAYDON SPECIMEN Performed By: #### U RNA, URTPRT, UMICAO, UEOS, UA #### [facility] [address] [place] [address] 46297 Swaging Machine Adjuster: Ronn Arias MD GFR, Amer 20 mL/min Low >60 [facility] Comment on above: Performed By: #### U RNA, URTPRT, UMICAO, UEOS, UA #### [facility] [address] [place] [address] 83082 Swaging Machine Adjuster: Ronn Arias MD GFR,non Amer 16 mL/min Low >60 [facility] Comment on above: Performed By: #### U RNA, URTPRT, UMICAO, UEOS, UA #### [facility] [address] [place] [address] Swaging Machine Adjuster: Ronn Arias MD Glucose [Mass/Vol] 114 mg/dL High 70-99 [facility] Comment on above: Performed By: #### U RNA, URTPRT, UMICAO, UEOS, UA #### [facility] [address] [place] [address] 97672 Swaging Machine Adjuster: Ronn Arias MD Potassium [Moles/Vol] 4.4 mmol/L Normal 3.7-5.3 [facility] Comment on above: Performed By: #### U RNA, URTPRT, UMICAO, UEOS, UA #### [facility] [address] [place] [address] 73876 Swaging Machine Adjuster: Ronn Arias MD Sodium [Moles/Vol] 139 mmol/L Normal 135-144 [facility] Comment on above: Performed By: #### U RNA, URTPRT, UMICAO, UEOS, UA #### [facility] [address] [place] [address] 56603 Swaging Machine Adjuster: Ronn Arias MD Urea nitrogen [Mass/Vol] 58 mg/dL High 8-23 [facility] Comment on above: Performed By: #### U RNA, URTPRT, UMICAO, UEOS, UA #### [address] [address] Swaging Machine Adjuster: Ronn Arias MD CBCon 01-01-2022 Erythrocyte distribution width (RBC) [Ratio] 14.5 % High 11.8-14.4 [facility] Comment on above: Performed By: #### U RNA, URTPRT, UMICAO, UEOS, UA #### [address] [address] Swaging Machine Adjuster: Ronn Arias MD Hematocrit (Bld) [Volume fraction] 30.0 % Low 40.7-50.3 [facility] Comment on above: Performed By: #### U RNA, URTPRT, UMICAO, UEOS, UA #### [address] [address] Swaging Machine Adjuster: Ronn Arias MD Hemoglobin (Bld) [Mass/Vol] 10.0 g/dL Low 13.0-17.0 [facility] Comment on above: Performed By: #### U RNA, URTPRT, UMICAO, UEOS, UA #### [facility] [address] [place] [address] 80491 Swaging Machine Adjuster: Ronn Arias MD MCH (RBC) [Entitic mass] 28.2 pg Normal 25.2-33.5 [facility] Comment on above: Performed By: #### U RNA, URTPRT, UMICAO, UEOS, UA #### [facility] [address] [place] [address]162 Swaging Machine Adjuster: Ronn Arias MD MCHC (RBC) [Mass/Vol] 33.3 g/dL Normal 28.4-34.8 [facility] Comment on above: Performed By: #### U RNA, URTPRT, UMICAO, UEOS, UA #### [address] [address] Swaging Machine Adjuster: Ronn Arias MD MCV (RBC) [Entitic vol] 84.7 fL Normal 82.6-102.9 [facility] Comment on above: Performed By: #### U RNA, URTPRT, UMICAO, UEOS, UA #### [address] [address] Swaging Machine Adjuster: Ronn Arias MD NRBC Automated 0.0 per 100 WBC Normal 0.0 [facility] Comment on above: Performed By: #### U RNA, URTPRT, UMICAO, UEOS, UA #### [address] [address] Swaging Machine Adjuster: Ronn Arias MD Platelet mean volume (Bld) [Entitic vol] 11.0 fL Normal 8.1-13.5 [facility] Comment on above: Performed By: #### U RNA, URTPRT, UMICAO, UEOS, UA #### [address] [address] Swaging Machine Adjuster: Ronn Arias MD Platelets (Bld) [#/Vol] 157 10*3/uL Normal 138-453 [facility] Comment on above: Performed By: #### U RNA, URTPRT, UMICAO, UEOS, UA #### [address] [address] Swaging Machine Adjuster: Ronn Arias MD RBC (Bld) [#/Vol] 3.54 10*6/uL Low 4.21-5.77 [facility] Comment on above: Performed By: #### U RNA, URTPRT, UMICAO, UEOS, UA #### [facility] [address] [place], [place] [phone] Swaging Machine Adjuster: Ronn Arias MD WBC (Bld) [#/Vol] 16.8 10*3/uL High 3.5-11.3 [facility] Comment on above: Performed By: #### U RNA, URTPRT, UMICAO, UEOS, UA #### [facility] [address] [place], [place] [phone] Swaging Machine Adjuster: Ronn Arias MD Hematocrit (Bld) [Volume fraction] 30.0 % Low 40.7 - 50.3 % [facility] Hemoglobin (Bld) [Mass/Vol] 10.0 g/dL Low 13 - 17 g/dL [facility] MCH (RBC) [Entitic mass] 28.2 pg 25.2 - 33.5 pg [facility] MCHC (RBC) [Mass/Vol] 33.3 g/dL 28.4 - 34.8 g/dL [facility] MCV (RBC) [Entitic vol] 84.7 fL 82.6 - 102.9 fL [facility] NRBC Automated 0.0 0.0 per 100 WBC [facility] Platelet distribution width (Bld) [Ratio] 14.5 % High 11.8 - 14.4 % [facility] Platelet mean volume (Bld) [Entitic vol] 11.0 fL 8.1 - 13.5 fL [facility] Platelets (Bld) [#/Vol] 157 10*3/uL [facility] RBC (Bld) [#/Vol] 3.54 10*6/uL Low 4.21 - 5.77 m/uL [facility] WBC (Bld) [#/Vol] 16.8 10*3/uL High [facility] Calcium, Ionicon 01-01-2022 Calcium [Moles/Vol] 0.95 mmol/L Low 1.13-1.33 [facility] Comment on above: Performed By: #### U RNA, URTPRT, UMICAO, UEOS, UA #### [facility] [address] [place], [place] [phone] Swaging Machine Adjuster: Ronn Arias MD Calcium, Ionizedon 2 Calcium, Ionized 0.95 mmol/L Low 1.13 - 1.33 mmol/L [facility] Interpretation and review of laboratory results Abnormal [facility] Comp Metabolic Pr/rfx MGon 0 01-01-2022 Creatinine [Mass/Vol] 3.74 mg/dL High 0.70-1.20 [facility] Comment on above: Result Comment: ICTE JAYDON SPECIMEN Performed By: #### U RNA, URTPRT, UMICAO, UEOS, UA #### [facility] [address] [place], [place] [phone] Swaging Machine Adjuster: Ronn Arias MD GFR, Amer 20 mL/min Low >60 [facility] Comment on above: Performed By: #### U RNA, URTPRT, UMICAO, UEOS, UA #### [facility] [address] [place], [place] [phone] Swaging Machine Adjuster: Ronn Arias MD GFR,non Amer 16 mL/min Low >60 [facility] Comment on above: Performed By: #### U RNA, URTPRT, UMICAO, UEOS, UA #### [facility] [address] [place], [place] [phone] Swaging Machine Adjuster: Ronn Arias MD (cont.) Normal [facility] Comment on above: Result Comment: Aver age GFR for 60-69 years old: 85 mL/min/1.73sq m Chronic Kidney Disease: <60 mL/min/1.73sq m Kidney failure: <15 mL/min/1.73sq m eGFR calculated using average adult body mass. Additional eGFR calculator available at: http://www.Synlogic.com/multiple_crcl_2012.htm Performed By: #### U RNA, URTPRT, UMICAO, UEOS, UA #### [facility] [address] [place] [address]65 Swaging Machine Adjuster: Ronn Arias MD Albumin [Mass/Vol] 3.2 g/dL Low 3.5-5.2 [facility] Comment on above: Performed By: #### U RNA, URTPRT, UMICAO, UEOS, UA #### [facility] [address] [place] [address] 57715 Swaging Machine Adjuster: Ronn Arias MD Albumin/Glob Ratio 1.2 Normal 1.0-2.5 [facility] Comment on above: Performed By: #### U RNA, URTPRT, UMICAO, UEOS, UA #### [address] [address] Swaging Machine Adjuster: Ronn Arias MD Alkaline Phos 101 U/L Normal 40-129 [facility] Comment on above: Performed By: #### U RNA, URTPRT, UMICAO, UEOS, UA #### [address] [address] Swaging Machine Adjuster: Ronn Arias MD ALT [Catalytic activity/Vol] 185 U/L High 5-41 [facility] Comment on above: Performed By: #### U RNA, URTPRT, UMICAO, UEOS, UA #### [address] [address] Swaging Machine Adjuster: Ronn Arias MD Anion gap [Moles/Vol] 12 mmol/L Normal 9-17 [facility] Comment on above: Performed By: #### U RNA, URTPRT, UMICAO, UEOS, UA #### [facility] [address] [place] [address] 27974 Swaging Machine Adjuster: Ronn Arias MD AST [Catalytic activity/Vol] 103 U/L High <40 [facility] Comment on above: Performed By: #### U RNA, URTPRT, UMICAO, UEOS, UA #### [facility] [address] [place] [address] 08863 Swaging Machine Adjuster: Ronn Arias MD Bilirubin [Mass/Vol] 4.3 mg/dL High 0.3-1.2 [facility] Comment on above: Performed By: #### U RNA, URTPRT, UMICAO, UEOS, UA #### [facility] [address] [place] [address] 45835 Swaging Machine Adjuster: Ronn Arias MD Calcium [Mass/Vol] 6.5 mg/dL Low 8.6-10.4 [facility] Comment on above: Performed By: #### U RNA, URTPRT, UMICAO, UEOS, UA #### [address] [address] Swaging Machine Adjuster: Ronn Arias MD Chloride [Moles/Vol] 107 mmol/L Normal 98-107 [facility] Comment on above: Performed By: #### U RNA, URTPRT, UMICAO, UEOS, UA #### [facility] [address] [place] [address] 00358 Swaging Machine Adjuster: Ronn Arias MD CO2 [Moles/Vol] 19 mmol/L Low 20-31 [facility] Comment on above: Performed By: #### U RNA, URTPRT, UMICAO, UEOS, UA #### [facility] [address] [place] [address] 7[address]33 Swaging Machine Adjuster: Ronn Arias MD Glucose [Mass/Vol] 109 mg/dL High 70-99 [facility] Comment on above: Performed By: #### U RNA, URTPRT, UMICAO, UEOS, UA #### [facility] [address] [place] [address]12 Swaging Machine Adjuster: Ronn Arias MD Potassium [Moles/Vol] 4.4 mmol/L Normal 3.7-5.3 [facility] Comment on above: Performed By: #### U RNA, URTPRT, UMICAO, UEOS, UA #### [address] [address] Swaging Machine Adjuster: Ronn Arias MD Protein [Mass/Vol] 5.8 g/dL Low 6.4-8.3 [facility] Comment on above: Performed By: #### U RNA, URTPRT, UMICAO, UEOS, UA #### [address] [address] Swaging Machine Adjuster: Ronn Arias MD Sodium [Moles/Vol] 138 mmol/L Normal 135-144 [facility] Comment on above: Performed By: #### U RNA, URTPRT, UMICAO, UEOS, UA #### [facility] [address] [place] [address]407 Swaging Machine Adjuster: Ronn Arias MD Urea nitrogen [Mass/Vol] 59 mg/dL High 8-23 [facility] Comment on above: Performed By: #### U RNA, URTPRT, UMICAO, UEOS, UA #### [address] [address] Swaging Machine Adjuster: Ronn Arias MD Creatinine [Mass/Vol] 3.86 mg/dL High 0.70-1.20 [facility] Comment on above: Result Comment: ICTE JAYDON SPECIMEN Performed By: #### U RNA, URTPRT, UMICAO, UEOS, UA #### [address] [address] Swaging Machine Adjuster: Ronn Arias MD GFR, Amer 19 mL/min Low >60 [facility] Comment on above: Performed By: #### U RNA, URTPRT, UMICAO, UEOS, UA #### [facility] [place] [address] Swaging Machine Adjuster: Ronn Arias MD GFR,non Amer 16 mL/min Low >60 [facility] Comment on above: Performed By: #### U RNA, URTPRT, UMICAO, UEOS, UA #### [address] [address] Swaging Machine Adjuster: Ronn Arias MD (cont.) Normal [facility] Comment on above: Result Comment: Aver age GFR for 60-69 years old: 85 mL/min/1.73sq m Chronic Kidney Disease: <60 mL/min/1.73sq m Kidney failure: <15 mL/min/1.73sq m eGFR calculated using average adult body mass. Additional eGFR calculator available at: http://www.Synlogic.eyesFinder/multiple_crcl_2011.htm Performed By: #### U RNA, URTPRT, UMICAO, UEOS, UA #### [facility] [address] [place] [address]458 Swaging Machine Adjuster: Ronn Arias MD Albumin [Mass/Vol] 3.0 g/dL Low 3.5-5.2 [facility] Comment on above: Performed By: #### U RNA, URTPRT, UMICAO, UEOS, UA #### [facility] [address] [place] [address] 9[address]99 Swaging Machine Adjuster: Ronn Arias MD Albumin/Glob Ratio 1.2 Normal 1.0-2.5 [facility] Comment on above: Performed By: #### U RNA, URTPRT, UMICAO, UEOS, UA #### [facility] [place] [address] Swaging Machine Adjuster: Ronn Arias MD Alkaline Phos 98 U/L Normal 40-129 [facility] Comment on above: Performed By: #### U RNA, URTPRT, UMICAO, UEOS, UA #### [facility] [address] [place] [address] Swaging Machine Adjuster: Ronn Arias MD ALT [Catalytic activity/Vol] 191 U/L High 5-41 [facility] Comment on above: Performed By: #### U RNA, URTPRT, UMICAO, UEOS, UA #### [facility] [address] [place] [address]27 Swaging Machine Adjuster: Ronn Arias MD Anion gap [Moles/Vol] 13 mmol/L Normal 9-17 [facility] Comment on above: Performed By: #### U RNA, URTPRT, UMICAO, UEOS, UA #### [facility] [address] [place] [address]874 Swaging Machine Adjuster: Ronn Arias MD AST [Catalytic activity/Vol] 112 U/L High <40 [facility] Comment on above: Performed By: #### U RNA, URTPRT, UMICAO, UEOS, UA #### [facility] [address] [place] [address] Swaging Machine Adjuster: Ronn Arias MD Bilirubin [Mass/Vol] 4.5 mg/dL High 0.3-1.2 [facility] Comment on above: Performed By: #### U RNA, URTPRT, UMICAO, UEOS, UA #### [facility] [address] [place] [address] 73752 Swaging Machine Adjuster: Ronn Arias MD Calcium [Mass/Vol] 6.5 mg/dL Low 8.6-10.4 [facility] Comment on above: Performed By: #### U RNA, URTPRT, UMICAO, UEOS, UA #### [facility] [address] [place] [address] 7[address]68 Swaging Machine Adjuster: Ronn Arias MD Chloride [Moles/Vol] 109 mmol/L High 98-107 [facility] Comment on above: Performed By: #### U RNA, URTPRT, UMICAO, UEOS, UA #### [facility] [address] [place] [address] Swaging Machine Adjuster: Ronn Arias MD CO2 [Moles/Vol] 18 mmol/L Low 20-31 [facility] Comment on above: Performed By: #### U RNA, URTPRT, UMICAO, UEOS, UA #### [facility] [address] [place] [address]75 Swaging Machine Adjuster: Ronn Arias MD Glucose [Mass/Vol] 106 mg/dL High 70-99 [facility] Comment on above: Performed By: #### U RNA, URTPRT, UMICAO, UEOS, UA #### [facility] [address] [place] [address] Swaging Machine Adjuster: Ronn Arias MD Potassium [Moles/Vol] 4.5 mmol/L Normal 3.7-5.3 [facility] Comment on above: Performed By: #### U RNA, URTPRT, UMICAO, UEOS, UA #### [facility] [address] [place] [address] Swaging Machine Adjuster: Ronn Arias MD Protein [Mass/Vol] 5.5 g/dL Low 6.4-8.3 [facility] Comment on above: Performed By: #### U RNA, URTPRT, UMICAO, UEOS, UA #### [facility] [address] [place] [address] Swaging Machine Adjuster: Ronn Arias MD Sodium [Moles/Vol] 140 mmol/L Normal 135-144 [facility] Comment on above: Performed By: #### U RNA, URTPRT, UMICAO, UEOS, UA #### [facility] [address] [place] [address] [phone] Swaging Machine Adjuster: Ronn Arias MD Urea nitrogen [Mass/Vol] 59 mg/dL High 8-23 [facility] Comment on above: Performed By: #### U RNA, URTPRT, UMICAO, UEOS, UA #### [facility] [address] [place], [place] [phone] Swaging Machine Adjuster: Ronn Arias MD Comprehensive Metabolic Pane l w/ Reflex to MGon 01-01-2022 Albumin [Mass/Vol] 3.2 g/dL Low 3.5 - 5.2 g/dL [facility] Albumin/Globulin [Mass ratio] 1.2 {ratio} 1 - 2.5 [facility] ALP (Bld) [Catalytic activity/Vol] 101 U/L 40 - 129 U/L [facility] ALT [Catalytic activity/Vol] 185 U/L High 5 - 41 U/L [facility] Anion gap [Moles/Vol] 12 mmol/L 9 - 17 mmol/L [facility] AST [Catalytic activity/Vol] 103 U/L High NINF - 40 U/L [facility] Bilirubin [Mass/Vol] 4.3 mg/dL High 0.3 - 1 .2 mg/dL [facility] [employer] [facility] Calcium [Mass/Vol] 6.5 mg/dL Low 8.6 - 10. 4 mg/dL [facility] Chloride [Moles/Vol] 107 mmol/L 98 - 10 7 mmol/L [facility] CO2 [Moles/Vol] 19 mmol/L Low 20 - 31 mmol/L [facility] Creatinine [Mass/Vol] 3.74 mg/dL High 0.7 - 1.2 mg/dL [facility] [employer] Comment on above: ICTERIC SPECIMEN Free PSA/Total PSA [Mass fraction] 5.8 g/dL Low 6.4 - 8.3 g/dL [facility] GFR 20 mL/min Low 60 - PI NF mL/min [facility] GFR Non- 16 mL/min Low 60 - PINF mL/min [facility] GFR/1.73 sq M.predicted MDRD (S/P/Bld) [Vol rate/Area] [facility] Comment on above: Average GFR for 60-6 9 years old: 85 mL/min/1.73sq m Chronic Kidney Disease: <60 mL/min/1.73sq m Kidney failure: <15 mL/min/1.73sq m eGFR calculated using average adult body mass. Additional eGFR calculator available at: http://www.Compumatrix/multiple_crcl_2012.htm Glucose [Mass/Vol] 109 mg/dL High 70 - 99 mg/dL [facility] Interpretation and review of laboratory results Abnormal [facility] Potassium [Moles/Vol] 4.4 mmol/L 3.7 - 5.3 mmol/L [facility] Sodium [Moles/Vol] 138 mmol/L 135 - 144 mmol/L [facility] Urea nitrogen (BldV) [Mass/Vol] 59 mg/dL High 8 - 23 mg/dL [facility] Albumin [Mass/Vol] 3 g/dL Low 3.5 - 5.2 g/dL [facility] Albumin/Globulin [Mass ratio] 1.2 {ratio} 1 - 2.5 [facility] ALP (Bld) [Catalytic activity/Vol] 98 U/L 40 - 129 U/L [facility] ALT [Catalytic activity/Vol] 191 U/L High 5 - 41 U/L [facility] Anion gap [Moles/Vol] 13 mmol/L 9 - 17 mmol/L [facility] AST [Catalytic activity/Vol] 112 U/L High NINF - 40 U/L [facility] Bilirubin [Mass/Vol] 4.5 mg/dL High 0.3 - 1 .2 mg/dL [facility] Calcium [Mass/Vol] 6.5 mg/dL Low 8.6 - 10. 4 mg/dL [facility] Chloride [Moles/Vol] 109 mmol/L High 98 - 10 7 mmol/L [facility] CO2 [Moles/Vol] 18 mmol/L Low 20 - 31 mmol/L [facility] Creatinine [Mass/Vol] 3.86 mg/dL High 0.7 - 1.2 mg/dL [facility] Comment on above: ICTERIC SPECIMEN Free PSA/Total PSA [Mass fraction] 5.5 g/dL Low 6.4 - 8.3 g/dL [facility] [employer] GFR 19 mL/min Low 60 - PI NF mL/min [facility] GFR Non- 16 mL/min Low 60 - PINF mL/min [facility] GFR/1.73 sq M.predicted MDRD (S/P/Bld) [Vol rate/Area] [facility] Comment on above: Average GFR for 60-6 9 years old: 85 mL/min/1.73sq m Chronic Kidney Disease: <60 mL/min/1.73sq m Kidney failure: <15 mL/min/1.73sq m eGFR calculated using average adult body mass. Additional eGFR calculator available at: http://www.Compumatrix/multiple_crcl_2011.htm Glucose [Mass/Vol] 106 mg/dL High 70 - 99 mg/dL [facility] Potassium [Moles/Vol] 4.5 mmol/L 3.7 - 5.3 mmol/L [facility] Sodium [Moles/Vol] 140 mmol/L 135 - 144 mmol/L [facility] Urea nitrogen (BldV) [Mass/Vol] 59 mg/dL High 8 - 23 mg/dL [facility] [employer] Differentialon 01-01-2022 Abs. Basophil 0.03 k/uL Normal 0.00-0.20 [facility] Comment on above: Performed By: #### U RNA, URTPRT, UMICAO, UEOS, UA #### [facility] [address] [place], [place] [phone] Sw[employer] Machine Adjuster: Ronn Arias MD Abs.Imm.Granulocyte 0.10 k/uL Normal 0.00-0.30 [facility] Comment on above: Performed By: #### U RNA, URTPRT, UMICAO, UEOS, UA #### [facility] [address] [place] [address] Swaging Machine Adjuster: Ronn Arias MD Abs.Neutrophil (Seg) 14.48 k/uL High 1.50-8.10 [facility] Comment on above: Performed By: #### U RNA, URTPRT, UMICAO, UEOS, UA #### [address] [address] [employer] Adjuster: Ronn Arias MD Basophils/100 WBC (Bld) 0 % Normal 0-2 [facility] Comment on above: Performed By: #### U RNA, URTPRT, UMICAO, UEOS, UA #### [place] [address] [employer] Adjuster: Ronn Arias MD Eosinophils (Bld) [#/Vol] 0.06 10*3/uL Normal 0.00-0.44 [facility] Comment on above: Performed By: #### U RNA, URTPRT, UMICAO, UEOS, UA #### [address] [address] [employer] Adjuster: Ronn Arias MD Eosinophils/100 WBC (Bld) 0 % Low 1-4 [facility] Comment on above: Performed By: #### U RNA, URTPRT, UMICAO, UEOS, UA #### [place] [address] [employer] Adjuster: Ronn Arias MD Immature granulocytes/100 WBC (Bld) 1 % High 0 [facility] Comment on above: Performed By: #### U RNA, URTPRT, UMICAO, UEOS, UA #### [address] [address] [employer] Adjuster: Ronn Arias MD Lymphocytes (Bld) [#/Vol] 0.87 10*3/uL Low 1.10-3.70 [facility] Comment on above: Performed By: #### U RNA, URTPRT, UMICAO, UEOS, UA #### [facility] [address] [place] [address] Sw[employer] Machine Adjuster: Ronn Arias MD Lymphocytes/100 WBC (Bld) 5 % Low 24-43 [facility] Comment on above: Performed By: #### U RNA, URTPRT, UMICAO, UEOS, UA #### [facility] [address] [place] [address] [employer] Adjuster: Ronn Arias MD Monocytes (Bld) [#/Vol] 1.28 10*3/uL High 0.10-1.20 [facility] Comment on above: Performed By: #### U RNA, URTPRT, UMICAO, UEOS, UA #### [facility] [address] [place] [address] Sw[employer] Machine Adjuster: Ronn Arias MD Monocytes/100 WBC (Bld) 8 % Normal 3-12 [facility] Comment on above: Performed By: #### U RNA, URTPRT, UMICAO, UEOS, UA #### [facility] [address] [place] [address] Sw[employer] Machine Adjuster: Ronn Arias MD Neutrophil (Seg) 86 % High 36-65 [facility] Comment on above: Performed By: #### U RNA, URTPRT, UMICAO, UEOS, UA #### [facility] [address] [place] [phone] [employer] Adjuster: Ronn Arias MD RBC morphology finding Nom (Bld) ANISOCYTOSIS PRESENT Normal [facility] Comment on above: Performed By: #### U RNA, URTPRT, UMICAO, UEOS, UA #### [facility] [address] [place] [address] [employer] Adjuster: Ronn Arias MD Absolute Eos # 0.06 [facility] Immature Granulocyte 0.10 [facility] Absolute Lymph # 0.87 Low [facility] Absolute Foster # 1.28 High [facility] [...] High 36 - 65 % [facility] Segs Absolute 14.48 High [facility] Hemoglobin A1Con 01-01-2022 Glucose [Mass/Vol] 117 mg/dL Normal [facility] Comment on above: Result Comment: The ADA and AACC recommend providing the estimated average glucose result to permit better patient understanding of their HBA1c result. Performed By: #### U RNA, URTPRT, UMICAO, UEOS, UA #### [facility] [address] [place], [place] [phone] Swaging Machine Adjuster: Ronn Arias MD HbA1c (Bld) [Mass fraction] 5.7 % Normal 4.0-6.0 [facility] Comment on above: Performed By: #### U RNA, URTPRT, UMICAO, UEOS, UA #### [facility] [address] [place], [place] [phone] Swaging Machine Adjuster: Ronn Arias MD Glucose [Mass/Vol] 117 mg/dL [facility] Comment on above: The ADA and AACC rec ommend providing the estimated average glucose result to permit better patient understanding of their HBA1c result. HbA1c (Bld) [Mass fraction] 5.7 % 4 - 6 % [facility] Hepatic Function Panelon Albumin [Mass/Vol] 3.2 g/dL Low 3.5 - 5.2 g/dL [facility] Albumin/Globulin [Mass ratio] 1.3 {ratio} 1 - 2.5 [facility] ALP (Bld) [Catalytic activity/Vol] 98 U/L 40 - 129 U/L [facility] ALT [Catalytic activity/Vol] 202 U/L High 5 - 41 U/L [facility] AST [Catalytic activity/Vol] 117 U/L High NINF - 40 U/L [facility] Bilirubin [Mass/Vol] 4.4 mg/dL High 0.3 - 1 .2 mg/dL [facility] Bilirubin, Indirect 0.3 mg/dL 0 - 1 mg/dL [facility] Bilirubin.indirect [Mass/Vol] 4.1 mg/dL High NINF - 0.31 mg/dL [facility] Free PSA/Total PSA [Mass fraction] 5.6 g/dL Low 6.4 - 8.3 g/dL [facility] Interpretation and review of laboratory results Abnormal [facility] Lactate Dehydrogenaseon 12-21 LDH [Catalytic activity/Vol] 214 U/L Normal 135-225 [facility] Comment on above: Performed By: #### U RNA, URTPRT, UMICAO, UEOS, UA #### [facility] [address] [place] [address] Swaging Machine Adjuster: Ronn Arias MD LD 214 U/L 135 - 225 U/L [facility] Lactate, Sepsison 01-01-2022 Lactic Acid,Sep Wbld 1.2 mmol/L Normal 0.5-1.9 [facility] Comment on above: Performed By: #### U RNA, URTPRT, UMICAO, UEOS, UA #### [facility] [address] [place], [place] [phone] Swaging Machine Adjuster: Ronn Arias MD Lactic Acid, Sepsis, Whole Blood 1.2 mmol/L 0.5 - 1.9 mmol/L [facility] Lactic Acid,Sep Wbld 1.3 mmol/L Normal 0.5-1.9 [facility] Comment on above: Performed By: #### U RNA, URTPRT, UMICAO, UEOS, UA #### [facility] [address] [place] [address] Swaging Machine Adjuster: Ronn Arias MD Lactic Acid, Sepsis, Whole Blood 1.3 mmol/L 0.5 - 1.9 mmol/L [facility] Lactic Acid,Sep Wbld 0.9 mmol/L Normal 0.5-1.9 [facility] Comment on above: Performed By: #### U RNA, URTPRT, UMICAO, UEOS, UA #### [facility] [address] [place] [address] Swaging Machine Adjuster: Ronn Arias MD Lactic Acid, Sepsis, Whole Blood 0.9 mmol/L 0.5 - 1.9 mmol/L [facility] Lactic Acid,Sep Wbld 1.3 mmol/L Normal 0.5-1.9 [facility] Comment on above: Performed By: #### U RNA, URTPRT, UMICAO, UEOS, UA #### [facility] [address] [place] [address] Swaging Machine Adjuster: Ronn Arias MD Lactic Acid, Sepsis, Whole Blood 1.3 mmol/L 0.5 - 1.9 mmol/L [facility] Lipaseon 01-01-2022 Lipase [Catalytic activity/Vol] 1918 U/L High 13-60 [facility] Comment on above: Performed By: #### U RNA, URTPRT, UMICAO, UEOS, UA #### [facility] [address] [place] [address] Swaging Machine Adjuster: Ronn Arias MD Lipase [Catalytic activity/Vol] 1918 U/L High 13 - 60 U/L [facility] [employer] Lipid Panelon 01-01-2022 Cholesterol [Mass/Vol] 103 mg/dL NINF - 200 mg/dL [facility] [employer] Comment on above: Cholesterol Guidelines: <200 Desirable 200-240 Borderline >240 Undesirable Cholesterol in HDL [Mass/Vol] 46 mg/dL 40 - PINF mg/dL [facility] [employer] Comment on above: HDL Guidelines: <40 Undesirable 40-59 Borderline >59 Desirable Cholesterol in LDL [Mass/Vol] 46 mg/dL 0 - 130 mg/dL [facility] [employer] Comment on above: LDL Guidelines: <100 Desirable 100-129 Near to/above Desirable 130-159 Borderline >159 Undesirable Direct (measured) LDL and calculated LDL are not interchangeable tests. Cholesterol.total/Ch olesterol in HDL [Mass ratio] 2.2 {ratio} NINF - 5 [facility] Triglyceride [Mass/Vol] 53 mg/dL NINF - 150 mg/dL [facility] [employer] Comment on above: Triglyceride Guidelines: <150 Desirable 150-199 Borderline 200-499 High >499 Very high Based on AHA Guidelines for fasting triglyceride, January 2012. [facility] [employer] Lipid Profileon 01-01-2022 Cholesterol [Mass/Vol] 103 mg/dL Normal <200 [facility] Comment on above: Result Comment: Cholesterol Guidelines: <200 Desirable 200-240 Borderline >240 Undesirable Performed By: #### U RNA, URTPRT, UMICAO, UEOS, UA #### [facility] [address] [place], [place] [phone] Swaging Machine Adjuster: Ronn Arias MD Cholesterol in HDL [Mass/Vol] 46 mg/dL Normal >40 [facility] Comment on above: Result Comment: HDL Guidelines: <40 Undesirable 40-59 Borderline >59 Desirable Performed By: #### U RNA, URTPRT, UMICAO, UEOS, UA #### [facility] [address] [place], [place] [phone] Swaging Machine Adjuster: Ronn Arias MD Cholesterol in LDL [Mass/Vol] 46 mg/dL Normal 0-130 [facility] Comment on above: Result Comment: LDL Guidelines: <100 Desirable 100-129 Near to/above Desirable 130-159 Borderline >159 Undesirable Direct (measured) LDL and calculated LDL are not interchangeable tests. Performed By: #### U RNA, URTPRT, UMICAO, UEOS, UA #### [facility] [address] [place] [address] Swaging Machine Adjuster: Ronn Arias MD Cholesterol.total/Ch olesterol in HDL [Mass ratio] 2.2 {ratio} Normal <5 [facility] Comment on above: Performed By: #### U RNA, URTPRT, UMICAO, UEOS, UA #### [facility] [address] [place] [address] Swaging Machine Adjuster: Ronn Arias MD Triglyceride [Mass/Vol] 53 mg/dL Normal <150 [facility] Comment on above: Result Comment: Triglyceride Guidelines: <150 Desirable 150-199 Borderline 200-499 High >499 Very high Based on AHA Guidelines for fasting triglyceride, January 2012. Performed By: #### U RNA, URTPRT, UMICAO, UEOS, UA #### [facility] [address] [place] [address] Swaging Machine Adjuster: Ronn Arias MD Liver Profileon 01-01-2022 Albumin [Mass/Vol] 3.2 g/dL Low 3.5-5.2 [facility] Comment on above: Performed By: #### U RNA, URTPRT, UMICAO, UEOS, UA #### [facility] [address] [place] [address] Swaging Machine Adjuster: Ronn Arias MD Albumin/Glob Ratio 1.3 Normal 1.0-2.5 [facility] Comment on above: Performed By: #### U RNA, URTPRT, UMICAO, UEOS, UA #### [facility] [address] [place] [address] Swaging Machine Adjuster: Ronn Arias MD Alkaline Phos 98 U/L Normal 40-129 [facility] Comment on above: Performed By: #### U RNA, URTPRT, UMICAO, UEOS, UA #### [facility] [address] [place] [address] Swaging Machine Adjuster: Ronn Arias MD ALT [Catalytic activity/Vol] 202 U/L High 5-41 [facility] Comment on above: Performed By: #### U RNA, URTPRT, UMICAO, UEOS, UA #### [facility] [address] [place] [address] Swaging Machine Adjuster: Ronn Arias MD AST [Catalytic activity/Vol] 117 U/L High <40 [facility] Comment on above: Performed By: #### U RNA, URTPRT, UMICAO, UEOS, UA #### [facility] [address] [place] [address] Swaging Machine Adjuster: Ronn Arias MD Bilirubin [Mass/Vol] 4.4 mg/dL High 0.3-1.2 [facility] Comment on above: Performed By: #### U RNA, URTPRT, UMICAO, UEOS, UA #### [facility] [employer] [address] [place] [address] Swaging Machine Adjuster: Ronn Arias MD Bilirubin, Indirect 0.3 mg/dL Normal 0.00-1.00 [facility] Comment on above: Performed By: #### U RNA, URTPRT, UMICAO, UEOS, UA #### [facility] [address] [place] [phone] Swaging Machine Adjuster: Ronn Arias MD Bilirubin.indirect [Mass/Vol] 4.1 mg/dL High <0.31 [facility] Comment on above: Performed By: #### U RNA, URTPRT, UMICAO, UEOS, UA #### [facility] [address] [place] [address] [phone] Swaging Machine Adjuster: Ronn Arias MD Protein [Mass/Vol] 5.6 g/dL Low 6.4-8.3 [facility] Comment on above: Performed By: #### U RNA, URTPRT, UMICAO, UEOS, UA #### [facility] [address] [place], [place] [phone] Swaging Machine Adjuster: Ronn Arias MD MRI ABDOMEN WO CONTRAST [...] Aliya Salgado MD 01/01/22 Final result Normal [facility] 1. Christen pancreatic inflammation suggestive of acute pancreatitis. No pancreatic duct dilatation. 2. Cholelithiasis without evidence for acute cholecystitis, biliary dilatation or choledocholithiasis. [facility] EXAMINATION: MRI OF THE ABDOMEN WITHOUT [...] findings do not require dedicated imaging follow-up. [facility] Aliya Salgado MD - 01/01/2022 EXAMINATION: [...] for acute cholecystitis, biliary dilatation or choledocholithiasis. [facility] Phone: Radiology Study observation (narrative) [facility] Phone: MRI ABDOMEN WO CONTRAST MRCP Ordered By: Aliya Salgado on 01-01-2022 [facility]d2c Phone: Magnesiumon 01-01-2022 Magnesium [Mass/Vol] 1.7 mg/dL Normal 1.6-2.6 [facility] Comment on above: Performed By: #### U RNA, URTPRT, UMICAO, UEOS, UA #### [facility] [address] [place] [address] Swaging Machine Adjuster: Ronn Arias MD Magnesium [Mass/Vol] 1.7 mg/dL 1.6 - 2 .6 mg/dL [employer] Magnesium [Mass/Vol] 1.7 mg/dL Normal 1.6-2.6 [facility] Comment on above: Performed By: #### U RNA, URTPRT, UMICAO, UEOS, UA #### [employer] [address] [place] [address] [phone] Swaging Machine Adjuster: Ronn Arias MD Magnesium [Mass/Vol] 1.7 mg/dL 1.6 - 2 .6 mg/dL [facility] No Panel Informationon 01-01 Interpretation and review of laboratory results Abnormal [facility] Interpretation and review of laboratory results Abnormal [facility] PTon 01-01-2022 INR Coag (PPP) [Relative time] 1.2 {INR} Normal [facility] Comment on above: Result Comment: Therapeutic Range: Moderate Anticoagulant Intensity: INR = 2.0-3.0 High Anticoagulant Intensity: INR = 2.5-3.5 Performed By: #### U RNA, URTPRT, UMICAO, UEOS, UA #### [employer] [address] [place] [address] [phone] Swaging Machine Adjuster: Ronn Arias MD PT Coag (PPP) [Time] 12.7 s High 9.1-12.3 [facility] Comment on above: Performed By: #### U RNA, URTPRT, UMICAO, UEOS, UA #### [employer] [address] [place] [address] [phone] Swaging Machine Adjuster: Ronn Arias MD Phosphoruson 01-01-2022 Phosphate [Mass/Vol] 3.0 mg/dL 2.5 - 4 .5 mg/dL [facility] Phosphorus, Inorg.on 022 Phosphorus, Inorg. 3.0 mg/dL Normal 2.5-4.5 [facility] Comment on above: Performed By: #### U RNA, URTPRT, UMICAO, UEOS, UA #### [facility] [address], [place] [phone] Swaging Machine Adjuster: Ronn Arias MD Procalcitoninon 01-01-2022 Procalcitonin 67.66 ng/mL High <0.09 [facility] Comment on above: Result Comment: Suspected [...] entered into the Change in Procalcitonin Calculator (www.guzdle-eao-nxgnnejley.eyesFinder) to determine the patient's Mortality Risk Prognosis In healthy neonates, plasma Procalcitonin (PCT) concentrations increase gradually after , reaching peak values at about 24 hours of age then decrease to normal values below 0.5 ng/mL by 48-72 hours of age. Performed By: #### U RNA, URTPRT, UMICAO, UEOS, UA #### [facility] [address] [place] [address] [phone] Swaging Machine Adjuster: Ronn Arias MD Interpretation and review of laboratory results Abnormal [facility] Procalcitonin 67.66 ng/mL High NINF - 0.09 ng/mL [facility] Comment on above: Suspected Sepsis: [...] entered into the Change in Procalcitonin Calculator (www.eqshhr-rye-jycmdcvmeu.eyesFinder) to determine the patient's Mortality Risk Prognosis In healthy neonates, plasma Procalcitonin (PCT) concentrations increase gradually after , reaching peak values at about 24 hours of age then decrease to normal values below 0.5 ng/mL by 48-72 hours of age. Protein, urine, randomon Protein (U) [Mass/Vol] 59 mg/dL [facility] Comment on above: No normal range esta blished. [facility] Protime-INRon 01-01-2022 INR Coag (Bld) [Relative time] 1.2 {INR} [facility] Comment on above: Therapeutic Range: Moderate Anticoagulant Intensity: INR = 2.0-3.0 High Anticoagulant Intensity: INR = 2.5-3.5 Interpretation and review of laboratory results Abnormal [facility] PT Coag (PPP) [Time] 12.7 s High [facility] Sodium, Random Uron 01-02-20 Sodium (U) [Moles/Vol] 37 mmol/L Normal [facility] Comment on above: Result Comment: No n ormal range established. Performed By: #### U RNA, URTPRT, UMICAO, UEOS, UA #### [facility] [address], [place] [phone] Swaging Machine Adjuster: Ronn Arias MD Sodium, urine, randomon 12-21 Sodium (U) [Moles/Vol] 37 mmol/L [facility] Comment on above: No normal range esta blished. [facility] Triglycerideon 01-01-2022 Triglyceride [Mass/Vol] 58 mg/dL NINF - 150 mg/dL [facility] Comment on above: Triglyceride Guidelines: <150 Desirable 150-199 Borderline 200-499 High >499 Very high Based on AHA Guidelines for fasting triglyceride, January 2012. Triglycerideson 01-01-2022 Triglyceride [Mass/Vol] 58 mg/dL Normal <150 [facility] Comment on above: Result Comment: Triglyceride Guidelines: <150 Desirable 150-199 Borderline 200-499 High >499 Very high Based on AHA Guidelines for fasting triglyceride, January 2012. Performed By: #### U RNA, URTPRT, UMICAO, UEOS, UA #### [facility] [address], [place] [phone] Swaging Machine Adjuster: Ronn Arias MD Troponinon 01-01-2022 Troponin, High Sens 19 ng/L Normal 0-22 [facility] Comment on above: Result Comment: High Sensitivity Troponin values cannot be compared with other Troponin methodologies. Patients with high levels of Biotin oral intake (i.e >5mg/day) may have falsely decreased Troponin levels. Samples collected within 8 hours of biotin intake may require additional information for diagnosis. Performed By: #### U RNA, URTPRT, UMICAO, UEOS, UA #### [employer] [address] [place], [place] [phone] Swaging Machine Adjuster: Ronn Arias MD Troponin, High Sensitivity 19 ng/L 0 - 22 ng/L [facility] [employer] Comment on above: High Sensitivity Troponin values cannot be compared with other Troponin methodologies. Patients with high levels of Biotin oral intake (i.e >5mg/day) may have falsely decreased Troponin levels. Samples collected within 8 hours of biotin intake may require additional information for diagnosis. [facility] [employer] Troponin, High Sens 17 ng/L Normal 0-22 [facility] Comment on above: Result Comment: High Sensitivity Troponin values cannot be compared with other Troponin methodologies. Patients with high levels of Biotin oral intake (i.e >5mg/day) may have falsely decreased Troponin levels. Samples collected within 8 hours of biotin intake may require additional information for diagnosis. Performed By: #### U RNA, URTPRT, UMICAO, UEOS, UA #### [facility] [address] [place], [place] [phone] Swaging Machine Adjuster: Ronn Arias MD Troponin, High Sensitivity 17 ng/L 0 - 22 ng/L [employer] Comment on above: High Sensitivity Troponin values cannot be compared with other Troponin methodologies. Patients with high levels of Biotin oral intake (i.e >5mg/day) may have falsely decreased Troponin levels. Samples collected within 8 hours of biotin intake may require additional information for diagnosis. [facility] [employer] Troponin, High Sens 18 ng/L Normal 0-22 [facility] Comment on above: Result Comment: High Sensitivity Troponin values cannot be compared with other Troponin methodologies. Patients with high levels of Biotin oral intake (i.e >5mg/day) may have falsely decreased Troponin levels. Samples collected within 8 hours of biotin intake may require additional information for diagnosis. Performed By: #### U RNA, URTPRT, CHEO UEOS, UA #### [facility] [address] [place] [address] Swaging Machine Adjuster: Ronn Arias MD Troponin, High Sens 18 ng/L Normal 0-22 [facility] Comment on above: Result Comment: High Sensitivity Troponin values cannot be compared with other Troponin methodologies. Patients with high levels of Biotin oral intake (i.e >5mg/day) may have falsely decreased Troponin levels. Samples collected within 8 hours of biotin intake may require additional information for diagnosis. Performed By: #### U RNA, URTPRT, UMICAO, UEOS, UA #### [facility] [address] [place], [place] 1200408 Swaging Machine Adjuster: Ronn Arias MD Troponin, High Sensitivity 18 ng/L 0 - 22 ng/L [facility] [employer] Comment on above: High Sensitivity Troponin values cannot be compared with other Troponin methodologies. Patients with high levels of Biotin oral intake (i.e >5mg/day) may have falsely decreased Troponin levels. Samples collected within 8 hours of biotin intake may require additional information for diagnosis. [facility] Troponin, High Sensitivity 18 ng/L 0 - 22 ng/L [facility] [employer] Comment on above: High Sensitivity Troponin values cannot be compared with other Troponin methodologies. Patients with high levels of Biotin oral intake (i.e >5mg/day) may have falsely decreased Troponin levels. Samples collected within 8 hours of biotin intake may require additional information for diagnosis. Troponin, High Sens 18 ng/L Normal 0-22 [facility] Comment on above: Result Comment: High Sensitivity Troponin values cannot be compared with other Troponin methodologies. Patients with high levels of Biotin oral intake (i.e >5mg/day) may have falsely decreased Troponin levels. Samples collected within 8 hours of biotin intake may require additional information for diagnosis. Performed By: #### U RNA, URTPRT, UMICAO, UEOS, UA #### [facility] [address] [place] [address] Swaging Machine Adjuster: Ronn Arias MD Troponin, High Sens 17 ng/L Normal 0-22 [facility] Comment on above: Result Comment: High Sensitivity Troponin values cannot be compared with other Troponin methodologies. Patients with high levels of Biotin oral intake (i.e >5mg/day) may have falsely decreased Troponin levels. Samples collected within 8 hours of biotin intake may require additional information for diagnosis. Performed By: #### U RNA, URTPRT, UMICAO, UEOS, UA #### [facility] [address] [place] [address] Swaging Machine Adjuster: Ronn Arias MD Troponin, High Sensitivity 18 ng/L 0 - 22 ng/L [facility] Comment on above: High Sensitivity Troponin values cannot be compared with other Troponin methodologies. Patients with high levels of Biotin oral intake (i.e >5mg/day) may have falsely decreased Troponin levels. Samples collected within 8 hours of biotin intake may require additional information for diagnosis. [facility] Troponin, High Sens 15 ng/L Normal 0-22 [facility] Comment on above: Result Comment: High Sensitivity Troponin values cannot be compared with other Troponin methodologies. Patients with high levels of Biotin oral intake (i.e >5mg/day) may have falsely decreased Troponin levels. Samples collected within 8 hours of biotin intake may require additional information for diagnosis. Performed By: #### U RNA, URTPRT, UMICAO, UEOS, UA #### [facility] [address] [place] [address] Swaging Machine Adjuster: Ronn Arias MD Troponin, High Sensitivity 17 ng/L 0 - 22 ng/L [facility] Comment on above: High Sensitivity Troponin values cannot be compared with other Troponin methodologies. Patients with high levels of Biotin oral intake (i.e >5mg/day) may have falsely decreased Troponin levels. Samples collected within 8 hours of biotin intake may require additional information for diagnosis. [facility] Troponin, High Sensitivity 15 ng/L 0 - 22 ng/L [facility] Comment on above: High Sensitivity Troponin values cannot be compared with other Troponin methodologies. Patients with high levels of Biotin oral intake (i.e >5mg/day) may have falsely decreased Troponin levels. Samples collected within 8 hours of biotin intake may require additional information for diagnosis. [facility] UA w/Reflex Cultureon 2021 Bilirubin, SemiQt,Ur MOD Abnormal NEG [facility] Comment on above: Performed By: #### U RNA, URTPRT, UMICAO, UEOS, UA #### [facility] [address] [place] [phone] Swaging Machine Adjuster: Ronn Arias MD Blood, Urine SMALL Abnormal NEG [facility] Comment on above: Performed By: #### U RNA, URTPRT, UMICAO, UEOS, UA #### [facility] [address] [place] [address] Swaging Machine Adjuster: Ronn Arias MD Clarity (U) Turbid Abnormal CLEAR [facility] Comment on above: Performed By: #### U RNA, URTPRT, UMICAO, UEOS, UA #### [facility] [address] [place] [address] Swaging Machine Adjuster: Ronn Arias MD Color (U) Dark Yellow Abnormal YEL [facility] Comment on above: Performed By: #### U RNA, URTPRT, UMICAO, UEOS, UA #### [facility] [address] [place] [phone] Swaging Machine Adjuster: Ronn Arias MD Glucose Ql (U) Negative Normal NEG [facility] Comment on above: Performed By: #### U RNA, URTPRT, UMICAO, UEOS, UA #### [facility] [address] [place] [address] Swaging Machine Adjuster: Ronn Arias MD Ketones Ql (U) Negative Normal NEG [facility] Comment on above: Performed By: #### U RNA, URTPRT, UMICAO, UEOS, UA #### [facility] [address] [place] [phone] Swaging Machine Adjuster: Ronn Arias MD Leukocyte esterase Test strip Ql (U) Negative Normal NEG [facility] Comment on above: Performed By: #### U RNA, URTPRT, UMICAO, UEOS, UA #### [address] [address] Swaging Machine Adjuster: Ronn Arias MD Nitrite,Ur Negative Normal NEG [facility] Comment on above: Performed By: #### U RNA, URTPRT, UMICAO, UEOS, UA #### [facility] [address] [place] [address] Swaging Machine Adjuster: Ronn Arias MD PH,Ur 5.0 Normal 5.0-8.0 [facility] Comment on above: Performed By: #### U RNA, URTPRT, UMICAO, UEOS, UA #### [facility] [address] [place] [address] Swaging Machine Adjuster: Ronn Arias MD Protein Ql (U) 1+ Abnormal NEG [facility] Comment on above: Performed By: #### U RNA, URTPRT, UMICAO, UEOS, UA #### [facility] [address] [place] [address] Swaging Machine Adjuster: Ronn Arias MD Spec. [place],Ur 1.013 Normal 1.005-1.03 0 [facility] Comment on above: Performed By: #### U RNA, URTPRT, UMICAO, UEOS, UA #### [facility] [address] [place], [place] [phone] Sw[employer] Adjuster: Ronn Arias MD Urobilinogen,Ur Normal Normal NORM [facility] Comment on above: Performed By: #### U RNA, URTPRT, UMICAO, UEOS, UA #### [facility] [address] [place], [place] [id number] Swaging Machine Adjuster: Ronn Arias MD Urinalysis with Reflex to Cu ltureon 01-01-2022 Bilirubin Urine MOD Abnormal NEGATIVE [facility] Color, UA Dark Yellow Abnormal Yellow [facility] Glucose, Ur Negative NEGATIVE [facility] Interpretation and review of laboratory results Abnormal [facility] Ketones Ql (U) Negative NEGATIVE [facility] Leukocyte esterase Test strip Ql (U) Negative NEGATIVE [facility] Nitrite, Urine Negative NEGATIVE [facility] pH, UA 5.0 5 - 8 [facility] Protein, UA 1+ Abnormal NEGATIVE [facility] Specific [place], UA 1.013 1.005 - 1.03 [facility] Turbidity UA Turbid Abnormal Clear [facility] Urine Hgb SMALL Abnormal NEGATIVE [facility] Urobilinogen, Urine Normal Normal [facility] Urinalysis, Microon 01-02-20 22 Casts UA 20 TO 50 [facility] Casts UA COARSELY GRANULAR [facility] Epithelial Cells UA 5 TO 10 [facility] RBC, UA 10 TO 20 [facility] WBC, UA 10 TO 20 [facility] Urinalysis,Microon 2 Casts 20 TO 50 Normal 0-2 [facility] Comment on above: Result Comment: COAR ASHLEY LEDESMA Performed By: #### U RNA, URTPRT, UMICAO, UEOS, UA #### [facility] [address] [place] [address] Swaging Machine Adjuster: Ronn Arias MD Epithelial cells LM Ql (Urine sed) 5 TO 10 Normal 0-5 [facility] Comment on above: Performed By: #### U RNA, URTPRT, UMICAO, UEOS, UA #### [facility] [address] [place] [address] Swaging Machine Adjuster: Ronn Arias MD Urine RBC's 10 TO 20 Normal 0-2 [facility] Comment on above: Performed By: #### U RNA, URTPRT, UMICAO, UEOS, UA #### [facility] [address] [place] [address] Swaging Machine Adjuster: Ronn Arias MD Urine WBC's 10 TO 20 Normal 0-5 [facility] Comment on above: Performed By: #### U RNA, URTPRT, UMICAO, UEOS, UA #### [facility] [address] [place] [id number] Swaging Machine Adjuster: Ronn Arias MD CBC AUTO DIFFon 12-31-2021 BASO # 0.1 103/ul Normal 0.0-0.1 [facility] Comment on above: Performed By: #### H STROPN #### [facility] [address] [address] [address] Kulwant Brennan Basophils/100 WBC (Bld) 0.2 % Normal 0.2-2.0 [facility] Comment on above: Performed By: #### H STROPN #### [facility] [address] [address] [address] Kulwant Brennan EO # 0.0 103/ul Normal 0.0-0.7 [facility] Comment on above: Performed By: #### H STROPN #### [facility] [address] [address] [address] Kulwant Brennan Eosinophils/100 WBC (Bld) 0.0 % Critically low 0.9-7.0 [facility] Comment on above: Performed By: #### H STROPN #### [facility] [address] [address] [address] Kulwant Brennan Erythrocyte distribution width (RBC) [Ratio] 14.4 % Normal 11.0-15.0 [facility] Comment on above: Performed By: #### H STROPN #### [facility] [address] [place] [address] Dr. Kulwant Brennan Hematocrit (Bld) [Volume fraction] 37.9 % Critically low 42.0-54.0 [facility] Comment on above: Performed By: #### H STROPN #### [facility] [address] [place] [address] Dr. Kulwant Brennan Hemoglobin (Bld) [Mass/Vol] 12.2 g/dL Critically low 14.0-18.0 [facility] Comment on above: Performed By: #### H STROPN #### [facility] [address] [place] [address] Dr. Kulwant Brennan IG # 0.16 10e3/ul Critically high 0.00-0.03 [facility] Comment on above: Performed By: #### H STROPN #### [facility] [address] [place] [address] Dr. Kulwant Brennan IG % 0.6 % Critically high 0.0-0.5 [facility] Comment on above: Performed By: #### H STROPN #### [facility] [address] [place] [address] Dr. Kulwant Brennan LYMPH # 0.7 103/ul Critically low 1.2-3.8 [facility] Comment on above: Performed By: #### H STROPN #### [facility] [address] [place] [address] Dr. Kulwant Brennan Lymphocytes/100 WBC (Bld) 2.9 % Critically low 20.5-60.0 [facility] Comment on above: Performed By: #### H STROPN #### [facility] [address] [place] [address] Dr. Kulwant Brennan MANUAL DIFF REQ NO Normal [facility] Comment on above: Performed By: #### H STROPN #### [facility] [address] [address] [address] Kulwant Brennan MCH (RBC) [Entitic mass] 27.7 pg Normal 25.9-34.0 [facility] Comment on above: Performed By: #### H STROPN #### [facility] [address] [place] [address] Dr. Kulwant Brennan MCHC (RBC) [Mass/Vol] 32.2 g/dL Normal 29.9-35.2 [facility] Comment on above: Performed By: #### H STROPN #### [facility] [address] [place] [address] Dr. Kulwant Brennan MCV (RBC) [Entitic vol] 86.1 fL Normal 80.0-94.0 [facility] Comment on above: Performed By: #### H STROPN #### [facility] [address] [place] [address] Dr. Kulwant Brennan MONO # 1.6 103/ul Critically high 0.3-0.8 [facility] Comment on above: Performed By: #### H STROPN #### [facility] [address] [place] [address] Dr. Kulwant Brennan Monocytes/100 WBC (Bld) 6.4 % Normal 1.7-12.0 [facility] Comment on above: Performed By: #### H STROPN #### [facility] [address] [place] [address] Dr. Kulwant Brennan NEUT # 22.8 103/ul Critically high 1.4-6.5 [facility] Comment on above: Performed By: #### H STROPN #### [facility] [address] [place] [address] Dr. Kulwant Brennan Neutrophils/100 WBC (Bld) 89.9 % Critically high 43.0-75.0 [facility] Comment on above: Performed By: #### H STROPN #### [facility] [address] [place] [address] Dr. Kulwant Brennan Platelet mean volume (Bld) [Entitic vol] 10.0 fL Normal 9.5-13.5 [facility] Comment on above: Performed By: #### H STROPN #### [facility] [address] [address] [address] Kulwant Brennan PLT 211 103/ul Normal 150-450 [facility] Comment on above: Performed By: #### H STROPN #### [facility] [address] [address] [address] Kulwant Brennan RBC 4.40 106/ul Critically low 4.70-6.10 [facility] Comment on above: Performed By: #### H STROPN #### [facility] [address] [address] [address] Kulwant Brennan WBC 25.3 103/ul Critically high 4.0-11.0 [facility] Comment on above: Performed By: #### H STROPN #### [facility] [address] [address] [address] Kulwant Brennan CULTURE BLOODon 12-31-2021 Microscopic examination of blood, culture Culture Observations: NO GROWTH AT [address] [facility] Comment on above: Performed By: #### B LDCX2 ####[facility] [address] [id number]. Kulwant Brennan Performed By: #### B LDCX1 ####[facility] [address] [id number]. Kulwant Brennan CULTURE URINEon 12-31-2021 CULTURE URINE Culture Observations : MODERATE GROWTH OF MIXED SKIN MITA. NO POTENTIAL PATHOGENS SEEN. Normal [facility] Comment on above: Performed By: #### U RCX ####[facility] [address] [id number]. Kulwant Brennan Covid-19 PCR ([facility])on 12-21 SARS-CoV-2 (COVID-19) RNA MIKE+probe Ql (Unsp spec) Not detected Normal NOT DETECTED [facility] Comment on above: Result Comment: When [...] for this test is supported by the Clinical Business Manager of Health and Human Service's declaration that [...] longer be used). Performed By: #### C FLETCHER ####[facility] [address] [place], [place] [address]Dr. Kulwant Brennan ER URINE PROFILEon 2 Bilirubin Ql (U) MODERATE Abnormal NEGATIVE [facility] Comment on above: Performed By: #### ANA LAURA VARELA ####[facility] [address] [place], [place] [address]Dr. Kulwant Brennan Clarity (U) CLEAR Normal CLEAR [facility] Comment on above: Performed By: #### ANA LAURA VARELA ####[facility] [address] [place], [place] [address]Dr. Kulwant Brennan Color (U) DK. ORANGE Abnormal YELLOW [facility] Comment on above: Performed By: #### ANA LAURA VARELA ####[facility] [address] [place], [place] [address]Dr. Kulwant Brennan ERUAHD A micrscopic examina tion will be performed if indicated. Normal [facility] Comment on above: Performed By: #### ANA LAURA VARELA ####[facility] [address] [place], [place] [address]Dr. Kulwant Brennan Glucose Ql (U) Negative Normal NEGATIVE [facility] Comment on above: Performed By: #### ANA LAURA VARELA ####[facility] [address] [place], [place] [address]Dr. Kulwant Brennan Hemoglobin Ql (U) SMALL Abnormal NEGATIVE [facility] Comment on above: Performed By: #### SERGEY VARELAICRO ####[facility] [address] [address]Dr. Kulwant Brennan Ketones Ql (U) Negative Normal NEGATIVE [facility] Comment on above: Performed By: #### Lilly JHAVERI UMICRO ####[facility] [address] [address]Dr. Kulwant Brennan LEUKOCYTES Negative Normal NEGATIVE [facility] Comment on above: Performed By: #### Lilly JHAVERI UMICRO ####[facility] [address] [place], [place] [address]Dr. Kulwant Brennan Nitrite Ql (U) Positive Abnormal NEGATIVE [facility] Comment on above: Performed By: #### Lilly JHAVERI UMICRO ####[facility] [address] [place], [place] [address]Dr. Kulwant Brennan pH (U) 5.5 [pH] Normal 5-9 [facility] Comment on above: Performed By: #### Lilly JHAVERI ICRO ####[facility] [address] [place], [place] [address]Dr. Kulwant Brennan Protein (U) [Mass/Vol] 100 mg/dL Abnormal NEGATIVE/ TRACE [facility] Comment on above: Performed By: #### Lilly JHAVERI UMICRO ####[facility] [address] [place], [place] [address]Dr. Kulwant Brennan SPEC GRAVITY 1.020 Normal 1.005-<=1. 025 [facility] Comment on above: Performed By: #### Lilly JHAVERI UMICRO ####[facility] [address] [place], [place] [address]Dr. Kulwant Brennan UR MICRO IND INDICATED Normal [facility] Comment on above: Performed By: #### Lilly JHAVERI UMICRO ####[facility] [address] [address]Dr. Kulwant Brennan Urobilinogen Qn (U) 1.0 {Luis'U}/dL Normal 0.2 - 1. 0 [facility] Comment on above: Performed By: #### E ANA LAURA JHAVERI ####[facility] [address] [address]Dr. Kulwant Brennan LACTATE/LACTIC ACIDon 2021 Lactate [Moles/Vol] 1.6 mmol/L Normal 0.4-1.9 [facility] Comment on above: Performed By: #### L ACT #### [facility] [address] [address] [address] Kulwant Brennan Lactate [Moles/Vol] 2.4 mmol/L Critically high 0.4-1.9 [facility] Comment on above: Performed By: #### L ACT ####[facility] [address] [address]Dr. Kulwant Brennan LIPASEon 12-31-2021 Lipase [Catalytic activity/Vol] 6610.0 U/L Critically high 73.0-393.0 [facility] Comment on above: Performed By: #### L ACT #### [facility] [address] [place] [address] Dr. Kulwant Brennan PROF 14(COMP METB)on 022 Albumin [Mass/Vol] 3.3 g/dL Critically low 3.4-5.0 [facility] Comment on above: Performed By: #### L ACT #### [facility] [address] [place] [address] Dr. Kulwant Brennan Albumin/Globulin [Mass ratio] 0.9 {ratio} Normal [facility] Comment on above: Performed By: #### L ACT #### [facility] [address] [place] [address] Dr. Kulwant Brennan ALP [Catalytic activity/Vol] 124 U/L Critically high 46-116 [facility] Comment on above: Performed By: #### L ACT #### [facility] [address] [place] [address] Dr. Kulwant Brennan ALT [Catalytic activity/Vol] 327 U/L Critically high 16-63 [facility] Comment on above: Performed By: #### L ACT #### [facility] [address] [address] [address] Kulwant Brennan Anion gap [Moles/Vol] 15.6 mmol/L Normal [facility] Comment on above: Performed By: #### L ACT #### [facility] [address] [address] [address] Kulwant Brennan AST [Catalytic activity/Vol] 229 U/L Critically high 15-37 [facility] Comment on above: Performed By: #### L ACT #### [facility] [address] [address] [address] Kulwant Brennan Bilirubin [Mass/Vol] 6.2 mg/dL Critically high 0.2-1.0 [facility] Comment on above: Performed By: #### L ACT #### [facility] [address] [address] [address] Kulwant Brennan Calcium [Mass/Vol] 7.2 mg/dL Critically low 8.5-10.1 [facility] Comment on above: Performed By: #### L ACT #### [facility] [address] [address] [address] Kulwant Brennan Chloride [Moles/Vol] 102 mmol/L Normal 98-107 [facility] Comment on above: Performed By: #### L ACT #### [facility] [address] [address] [address] Kulwant Brennan CO2 [Moles/Vol] 26.4 mmol/L Normal 21.0-32.0 [facility] Comment on above: Performed By: #### L ACT #### [facility] [address] [address] [address] Kulwant Brennan Creatinine [Mass/Vol] 3.33 mg/dL Critically high 0.70-1.30 [facility] Comment on above: Performed By: #### L ACT #### [facility] [address] [address] [address] Kulwant Brennan EGFR-AF ECUADOREAN 22 mL/min/1.73m2 Critically low >=60 [facility] Comment on above: Performed By: #### L ACT #### [facility] [address] [address] [address] Kulwant Brennan EGFR-NON AF ECUADOREAN 19 mL/min/1.73m2 Critically low >=60 [facility] Comment on above: Performed By: #### L ACT #### [facility] [address] [address] [address] Kulwant Brennan Globulin (S) [Mass/Vol] 3.8 g/dL Normal [facility] Comment on above: Performed By: #### L ACT #### [facility] [address] [address] [address] Kulwant Brennan Glucose [Mass/Vol] 245 mg/dL Critically high 74-106 [facility] Comment on above: Performed By: #### L ACT #### [facility] [address] [address] [address] Kulwant Brennan Potassium [Moles/Vol] 5.0 mmol/L Normal 3.5-5.1 [facility] Comment on above: Performed By: #### L ACT #### [facility] [address] [address] [address] Kulwant Brennan Protein [Mass/Vol] 7.1 g/dL Normal 6.4-8.2 [facility] Comment on above: Performed By: #### L ACT #### [facility] [address] [address] [address] Kulwant Brennan Sodium [Moles/Vol] 139 mmol/L Normal 136-145 [facility] Comment on above: Performed By: #### L ACT #### [facility] [address] [address] [address] Kulwant Brennan Urea nitrogen [Mass/Vol] 51.0 mg/dL Critically high 7.0-18.0 [facility] Comment on above: Performed By: #### L ACT #### [facility] [address] [address] [address] Kulwant Brennan Urea nitrogen/Creatinine [Mass ratio] 15.3 mg/mg Normal [facility] Comment on above: Performed By: #### L ACT #### [facility] [address] [address] [address] Kulwant Brennan PROTIMEon 12-31-2021 INR Coag (PPP) [Relative time] 1.17 {INR} Normal [facility] Comment on above: Performed By: #### H STROPN #### [facility] [address] [address] [address] Kulwant Brennan INR GUIDELINES SEE BELOW Normal [facility] Comment on above: Result Comment: HAYDEE RED INR: 2.0 - 3.0 CONDITIONS NOT LISTED BELOW 2.5 - 3.5 FOR PROSTHETIC HEART VALVE REPLACEMENT 2.5 - 3.5 RECURRENT THROMBOSIS Performed By: #### H STROPN #### [facility] [address] [address] [address] Kulwant Brennan PT Coag (PPP) [Time] 12.5 s Critically high 9.0-11.6 [facility] Comment on above: Performed By: #### H STROPN #### [facility] [address] [address] [address] Kulwant Brennan PTTon 12-31-2021 aPTT Coag (Bld) [Time] 33.3 s Normal 22.3-36.2 [facility] Comment on above: Performed By: #### P TT, PT ####[facility] [address] [address]Dr. Kulwant Brennan TROPONIN, HIGH SENSITIVITYon 12-31-2021 HSTROP 6.0 pg/mL Normal 4.0-76.1 [facility] Comment on above: Result Comment: CUT- OFF POINTS HAVE BEEN ESTABLISHED BASED ON THE FOURTH UNIVERSAL DEFINITIONS OF MYOCARDIAL INFARCTION. THE UPPER REFERENCE LIMIT (URL) OF TROPONIN, DEFINED THE 99TH PERCENTILE OF cTnI DISTRIBUTION IN A REFERENCE POPULATION, HAS BEEN CONFIRMED THE DECISION THRESHOLD FOR [place] DIAGNOSIS. Performed By: #### L ACT #### [facility] [address] [address] [address] Kulwant Brennan URINE MICROSCOPIC ONLYon BACTERIA SMALL Abnormal NONE SEEN [facility] Comment on above: Performed By: #### E RUR, UMICRO ####[facility] [address] [id number]. Kulwant Brennan Bacteria identified Cx Nom (U) INDICATED Normal [facility] Comment on above: Performed By: #### Lilly JHAVERI UMICRO ####[facility] [address] [address]Dr. Kulwant Brennan CAST SEEN Abnormal NONE SEEN [facility] Comment on above: Performed By: #### Lilly JHAVERI UMICRO ####[facility] [address] [address]Dr. Kulwant Brennan COARSE GRANULAR CAST FEW Normal [facility] Comment on above: Performed By: #### Lilly JHAVERI UMICRO ####[facility] [address] [address]Dr. Kulwant Brennan Crystals LM Nom (Urine sed) NONE SEEN Normal NONE SEEN [facility] Comment on above: Performed By: #### Lilly JHAVERI UMICRO ####[facility] [address] [place], [place] [address]Dr. Kulwant Brennan Epithelial cells LM Ql (Urine sed) FEW Abnormal NONE SEEN /RARE [facility] Comment on above: Performed By: #### Lilly JHAVERI UMICRO ####[facility] [address] [place], [place] [address]Dr. Kulwant Brennan MUCOUS TRACE Abnormal NONE SEEN [facility] Comment on above: Performed By: #### Lilly JHAVERI UMICRO ####[facility] [address] [place], [place] [address]Dr. Kulwant Brennan RBC 5-10 Abnormal 0-2 [facility] Comment on above: Performed By: #### Lilly JHAVERI UMICRO ####[facility] [address] [address]Dr. Kulwant Brennan WBC 0-2 Abnormal NONE SEEN [facility] Comment on above: Performed By: #### Lilly JHAVERI UMICRO ####[facility] [address] [place], [place] [address]Dr. Kulwant Brennan US SINGLE QUAD RT UPPERon [...] DAVIE NARANJO Date: 2021-12-31 19:27 Normal [facility] AMYLASEon 12-30-2021 Amylase [Catalytic activity/Vol] 47 U/L Normal 25-115 [facility] Comment on above: Performed By: #### H STROPN #### [facility] [address] [place] [address] Dr. Kulwant Brennan CBC AUTO DIFFon 12-30-2021 BASO # 0.0 103/ul Normal 0.0-0.1 [facility] Comment on above: Performed By: #### L ACT #### [facility] [address] [address] [address] Kulwant Brennan Basophils/100 WBC (Bld) 0.5 % Normal 0.2-2.0 [facility] Comment on above: Performed By: #### L ACT #### [facility] [address] [place], [place] [address] Dr. Kulwant Brennan EO # 0.3 103/ul Normal 0.0-0.7 [facility] Comment on above: Performed By: #### L ACT #### [facility] [address] [place] [address] Dr. Kulwant Brennan Eosinophils/100 WBC (Bld) 3.3 % Normal 0.9-7.0 [facility] Comment on above: Performed By: #### L ACT #### [facility] [address] [place] [address] Dr. Kulwant Brennan Erythrocyte distribution width (RBC) [Ratio] 14.1 % Normal 11.0-15.0 [facility] Comment on above: Performed By: #### L ACT #### [facility] [address] [place] [address] Dr. Kulwant Brennan Hematocrit (Bld) [Volume fraction] 38.8 % Critically low 42.0-54.0 [facility] Comment on above: Performed By: #### L ACT #### [facility] [address] [place] [address] Dr. Kulwant Brennan Hemoglobin (Bld) [Mass/Vol] 12.4 g/dL Critically low 14.0-18.0 [facility] Comment on above: Performed By: #### L ACT #### [facility] [address] [place] [address] Dr. Kulwant Brennan IG # 0.04 10e3/ul Critically high 0.00-0.03 [facility] Comment on above: Performed By: #### L ACT #### [facility] [address] [place] [address] Dr. Kulwant Brennan IG % 0.5 % Normal 0.0-0.5 [facility] Comment on above: Performed By: #### L ACT #### [facility] [address] [place] [address] Dr. Kulwant Brennan LYMPH # 1.9 103/ul Normal 1.2-3.8 [facility] Comment on above: Performed By: #### L ACT #### [facility] [address] [place] [address] Dr. Kulwant Brennan Lymphocytes/100 WBC (Bld) 23.9 % Normal 20.5-60.0 [facility] Comment on above: Performed By: #### L ACT #### [facility] [address] [place] [address] Dr. Kulwant Brennan MANUAL DIFF REQ NO Normal [facility] Comment on above: Performed By: #### L ACT #### [facility] [address] [place] [address] Dr. Kulwant Brennan MCH (RBC) [Entitic mass] 27.5 pg Normal 25.9-34.0 [facility] Comment on above: Performed By: #### L ACT #### [facility] [address] [place] [address] Dr. Kulwant Brennan MCHC (RBC) [Mass/Vol] 32.0 g/dL Normal 29.9-35.2 [facility] Comment on above: Performed By: #### L ACT #### [facility] [address] [place] [address] Dr. Kulwant Brennan MCV (RBC) [Entitic vol] 86.0 fL Normal 80.0-94.0 [facility] Comment on above: Performed By: #### L ACT #### [facility] [address] [place] [address] Dr. Kulwant Brennan MONO # 0.9 103/ul Critically high 0.3-0.8 [facility] Comment on above: Performed By: #### L ACT #### [facility] [address] [place] [address] Dr. Kulwant Brennan Monocytes/100 WBC (Bld) 11.8 % Normal 1.7-12.0 [facility] Comment on above: Performed By: #### L ACT #### [facility] [address] [place] [address] Dr. Kulwant Brennan NEUT # 4.7 103/ul Normal 1.4-6.5 [facility] Comment on above: Performed By: #### L ACT #### [facility] [address] [place] [address] Dr. Kulwant Brennan Neutrophils/100 WBC (Bld) 60.0 % Normal 43.0-75.0 [facility] Comment on above: Performed By: #### L ACT #### [facility] [address] [address] [address] Kulwant Brennan Platelet mean volume (Bld) [Entitic vol] 10.0 fL Normal 9.5-13.5 [facility] Comment on above: Performed By: #### L ACT #### [facility] [address] [address] [address] Kulwant Brennan PLT 222 103/ul Normal 150-450 [facility] Comment on above: Performed By: #### L ACT #### [facility] [address] [address] [address] Kulwant Brennan RBC 4.51 106/ul Critically low 4.70-6.10 [facility] Comment on above: Performed By: #### L ACT #### [facility] [address] [address] [address] Kulwant Brennan WBC 7.9 103/ul Normal 4.0-11.0 [facility] Comment on above: Performed By: #### L ACT #### [facility] [address] [address] [address] ABD/PELV W CONon 12-31-19 CT ABD/PELV W CON EXAMINATION: CT ABD/ PELV W CON HISTORY: UNSPECIFIED ABDOMINAL PAIN COMPARISON: 12/29/2021. TECHNIQUE: CT of abdomen/pelvis with intravenous contrast. Dose reduction techniques were achieved by using automated exposure control and/or adjustment of mA and/or kV according to patient size and/or use of iterative reconstruction technique. FINDINGS: Glass Vial Filler: No pertinent findings, which are not already [...] ALIYA NEFF Date: 2021-12-30 21:29 Normal [facility] ER URINE PROFILEon 2 Bilirubin Ql (U) Negative Normal NEGATIVE [facility] Comment on above: Performed By: #### L ACT #### [facility] [address] [place] [address] Dr. Kulwant Brennan Clarity (U) CLEAR Normal CLEAR [facility] Comment on above: Performed By: #### L ACT #### [facility] [address] [place] [address] Dr. Kulwant Brennan Color (U) LT. YELLOW Normal YELLOW [facility] Comment on above: Performed By: #### L ACT #### [facility] [address] [address] [address] Kulwant Brennan ERUPHILIP A micrscopic examina tion will be performed if indicated. Normal [facility] Comment on above: Performed By: #### L ACT #### [facility] [address] [place] [address] Dr. Kulwant Brennan Glucose Ql (U) Negative Normal NEGATIVE [facility] Comment on above: Performed By: #### L ACT #### [facility] [address] [place] [address] Dr. Kulwant Brennan Hemoglobin Ql (U) Negative Normal NEGATIVE [facility] Comment on above: Performed By: #### L ACT #### [facility] [address] [address] [address] Kulwant Brennan Ketones Ql (U) Negative Normal NEGATIVE [facility] Comment on above: Performed By: #### L ACT #### [facility] [address] [address] [address] Kulwant Brennan LEUKOCYTES Negative Normal NEGATIVE [facility] Comment on above: Performed By: #### L ACT #### [facility] [address] [place] [address] Dr. Kulwant Brennan Nitrite Ql (U) Negative Normal NEGATIVE [facility] Comment on above: Performed By: #### L ACT #### [facility] [address] [place] [address] Dr. Kulwant Brennan pH (U) 5.5 [pH] Normal 5-9 [facility] Comment on above: Performed By: #### L ACT #### [facility] [address] [place] [address] Dr. Kulwant Brennan SPEC GRAVITY >=1.030 Abnormal 1.005-<=1. 025 [facility] Comment on above: Performed By: #### L ACT #### [facility] [address] [place] [address] Dr. Kulwant Brennan UA PROTEIN Negative Normal NEGATIVE/ TRACE [facility] Comment on above: Performed By: #### L ACT #### [facility] [address] [place] [address] Dr. Kulwant Brennan UR MICRO IND NOT INDICATED Normal [facility] Comment on above: Performed By: #### L ACT #### [facility] [address] [place] [address] Dr. Kulwant Brennan Urobilinogen Qn (U) 0.2 {Luis'U}/dL Normal 0.2 - 1. 0 [facility] Comment on above: Performed By: #### L ACT #### [facility] [address] [address] [address] Kulwant Brennan LIPASEon 12-30-2021 Lipase [Catalytic activity/Vol] 105.0 U/L Normal 73.0-393.0 [facility] Comment on above: Performed By: #### H STROPN #### [facility] [address] [address] [address] Kulwant Brennan LIVER PROFILEon 12-30-2021 Albumin [Mass/Vol] 3.8 g/dL Normal 3.4-5.0 [facility] Comment on above: Performed By: #### H STROPN #### [facility] [address] [address] [address] Kulwant Brennan Albumin/Globulin [Mass ratio] 1.0 {ratio} Normal [facility] Comment on above: Performed By: #### H STROPN #### [facility] [address] [place] [address] Dr. Kulwant Brennan ALP [Catalytic activity/Vol] 67 U/L Normal 46-116 [facility] Comment on above: Performed By: #### H STROPN #### [facility] [address] [place] [address] Dr. Kulwant Brennan ALT [Catalytic activity/Vol] 31 U/L Normal 16-63 [facility] Comment on above: Performed By: #### H STROPN #### [facility] [address] [place] [address] Dr. Kulwant Brennan AST [Catalytic activity/Vol] 21 U/L Normal 15-37 [facility] Comment on above: Performed By: #### H STROPN #### [facility] [address] [place] [address] Dr. Kulwant Brennan BILI, CONJUGATED 0.1 mg/dL Normal 0.0-0.2 [facility] Comment on above: Performed By: #### H STROPN #### [facility] [address] [place] [address] Dr. Kulwant Brennan Bilirubin [Mass/Vol] 0.5 mg/dL Normal 0.2-1.0 [facility] Comment on above: Performed By: #### H STROPN #### [facility] [address] [address] [address] Kulwant Brennan Globulin (S) [Mass/Vol] 3.7 g/dL Normal [facility] Comment on above: Performed By: #### H STROPN #### [facility] [address] [address] [address] Kulwant Brennan Protein [Mass/Vol] 7.5 g/dL Normal 6.4-8.2 [facility] Comment on above: Performed By: #### H STROPN #### [facility] [address] [address] [address] Kulwant Brennan PROF CHEM 8 (BAS METB)on Anion gap [Moles/Vol] 14.5 mmol/L Normal [facility] Comment on above: Performed By: #### H STROPN #### [facility] [address] [place] [address] Dr. Kulwant Brennan Calcium [Mass/Vol] 7.5 mg/dL Critically low 8.5-10.1 [facility] Comment on above: Performed By: #### H STROPN #### [facility] [address] [place] [address] Dr. Kulwant Brennan Chloride [Moles/Vol] 104 mmol/L Normal 98-107 [facility] Comment on above: Performed By: #### H STROPN #### [facility] [address] [address] [address] Kulwant Brennan CO2 [Moles/Vol] 26.8 mmol/L Normal 21.0-32.0 [facility] Comment on above: Performed By: #### H STROPN #### [facility] [address] [address] [address] Kulwant Brennan Creatinine [Mass/Vol] 1.31 mg/dL Critically high 0.70-1.30 [facility] Comment on above: Performed By: #### H STROPN #### [facility] [address] [place] [address] Dr. Kulwant Brennan EGFR-AF ECUADOREAN >60 Normal >=60 [facility] Comment on above: Performed By: #### H STROPN #### [facility] [address] [address] [address] Kulwant Brennan EGFR-NON AF ECUADOREAN 54 mL/min/1.73m2 Critically low >=60 [facility] Comment on above: Performed By: #### H STROPN #### [facility] [address] [address] [address] Kulwant rBennan Glucose [Mass/Vol] 97 mg/dL Normal 74-106 [facility] Comment on above: Performed By: #### H STROPN #### [facility] [address] [address] [address] Kulwant Brennan Potassium [Moles/Vol] 4.3 mmol/L Normal 3.5-5.1 [facility] Comment on above: Performed By: #### H STROPN #### [facility] [address] [address] [address] Kulwant Brennan Sodium [Moles/Vol] 141 mmol/L Normal 136-145 [facility] Comment on above: Performed By: #### H STROPN #### [facility] [address] [address] [address] Kulwant Brennan Urea nitrogen [Mass/Vol] 25.0 mg/dL Critically high 7.0-18.0 [facility] Comment on above: Performed By: #### H STROPN #### [facility] [address] [address] [address] Kulwant Brennan Urea nitrogen/Creatinine [Mass ratio] 19.1 mg/mg Normal [facility] Comment on above: Performed By: #### H STROPN #### [facility] [address] [address] [address] Kulwant Brennan CBC AUTO DIFFon 12-29-2021 BASO # 0.0 103/ul Normal 0.0-0.1 [facility] Comment on above: Performed By: #### H STROPN #### [facility] [address] [address] [address] Kulwant Brennan Basophils/100 WBC (Bld) 0.5 % Normal 0.2-2.0 [facility] Comment on above: Performed By: #### H STROPN #### [facility] [address] [place] [address] Dr. Kulwant Brennan EO # 0.3 103/ul Normal 0.0-0.7 [facility] Comment on above: Performed By: #### H STROPN #### [facility] [address] [place] [address] Dr. Kulwant Brennan Eosinophils/100 WBC (Bld) 3.6 % Normal 0.9-7.0 [facility] Comment on above: Performed By: #### H STROPN #### [facility] [address] [place] [address] Dr. Kulwant Brennan Erythrocyte distribution width (RBC) [Ratio] 14.1 % Normal 11.0-15.0 [facility] Comment on above: Performed By: #### H STROPN #### [facility] [address] [place] [address] Dr. Kulwant Brennan Hematocrit (Bld) [Volume fraction] 39.0 % Critically low 42.0-54.0 [facility] Comment on above: Performed By: #### H STROPN #### [facility] [address] [place] [address] Dr. Kulwant Brennan Hemoglobin (Bld) [Mass/Vol] 12.5 g/dL Critically low 14.0-18.0 [facility] Comment on above: Performed By: #### H STROPN #### [facility] [address] [place] [address] Dr. Kulwant Brennan IG # 0.03 10e3/ul Normal 0.00-0.03 [facility] Comment on above: Performed By: #### H STROPN #### [facility] [address] [place] [address] Dr. Kulwant Brennan IG % 0.4 % Normal 0.0-0.5 [facility] Comment on above: Performed By: #### H STROPN #### [facility] [address] [place] [address] Dr. Kulwant Brennan LYMPH # 2.0 103/ul Normal 1.2-3.8 [facility] Comment on above: Performed By: #### H STROPN #### [facility] [address] [address] [address] Kulwant Brennan Lymphocytes/100 WBC (Bld) 28.0 % Normal 20.5-60.0 [facility] Comment on above: Performed By: #### H STROPN #### [facility] [address] [address] [address] Kulwant Brennan MANUAL DIFF REQ NO Normal [facility] Comment on above: Performed By: #### H STROPN #### [facility] [address] [place] [address] Dr. Kulwant Brennan MCH (RBC) [Entitic mass] 27.5 pg Normal 25.9-34.0 [facility] Comment on above: Performed By: #### H STROPN #### [facility] [address] [place] [address] Dr. Kulwant Brennan MCHC (RBC) [Mass/Vol] 32.1 g/dL Normal 29.9-35.2 [facility] Comment on above: Performed By: #### H STROPN #### [facility] [address] [place] [address] Dr. Kulwant Brennan MCV (RBC) [Entitic vol] 85.7 fL Normal 80.0-94.0 [facility] Comment on above: Performed By: #### H STROPN #### [facility] [address] [place] [address] Dr. Kulwant Brennan MONO # 1.0 103/ul Critically high 0.3-0.8 [facility] Comment on above: Performed By: #### H STROPN #### [facility] [address] [address] [address] Kulwant Brennan Monocytes/100 WBC (Bld) 14.0 % Critically high 1.7-12.0 [facility] Comment on above: Performed By: #### H STROPN #### [facility] [address] [address] [address] Kulwant Brennan NEUT # 3.9 103/ul Normal 1.4-6.5 [facility] Comment on above: Performed By: #### H STROPN #### [facility] [address] [address] [address] Kulwant Brennan Neutrophils/100 WBC (Bld) 53.5 % Normal 43.0-75.0 [facility] Comment on above: Performed By: #### H STROPN #### [facility] [address] [address] [address] Kulwant Brennan Platelet mean volume (Bld) [Entitic vol] 10.1 fL Normal 9.5-13.5 [facility] Comment on above: Performed By: #### H STROPN #### [facility] [address] [address] [address] Kulwant Brennan PLT 237 103/ul Normal 150-450 [facility] Comment on above: Performed By: #### H STROPN #### [facility] [address] [address] [address] Kulwant Brnenan RBC 4.55 106/ul Critically low 4.70-6.10 [facility] Comment on above: Performed By: #### H STROPN #### [facility] [address] [address] [address] Kulwant Brennan WBC 7.3 103/ul Normal 4.0-11.0 [facility] Comment on above: Performed By: #### H STROPN #### [facility] [address] [address] [address] ABD/PELVIS WO CONon [...] AMOS RAMIREZ Date: 2021-12-29 00:59 Normal [facility] PROF 14(COMP METB)on 022 Albumin [Mass/Vol] 4.0 g/dL Normal 3.4-5.0 [facility] Comment on above: Performed By: #### H STROPN #### [facility] [address] [place], [place] [address] Dr. Kulwant Brennan Albumin/Globulin [Mass ratio] 1.1 {ratio} Normal [facility] Comment on above: Performed By: #### H STROPN #### [facility] [address] [place], [place] [address] Dr. Kulwant Brennan ALP [Catalytic activity/Vol] 68 U/L Normal 46-116 [facility] Comment on above: Performed By: #### H STROPN #### [facility] [address] [address] [address] Kulwant Brennan ALT [Catalytic activity/Vol] 27 U/L Normal 16-63 [facility] Comment on above: Performed By: #### H STROPN #### [facility] [address] [address] [address] Kulwant Brennan Anion gap [Moles/Vol] 12.8 mmol/L Normal [facility] Comment on above: Performed By: #### H STROPN #### [facility] [address] [address] [address] Kulwant Brennan AST [Catalytic activity/Vol] 16 U/L Normal 15-37 [facility] Comment on above: Performed By: #### H STROPN #### [facility] [address] [address] [address] Kulwant Brennan Bilirubin [Mass/Vol] 0.5 mg/dL Normal 0.2-1.0 [facility] Comment on above: Performed By: #### H STROPN #### [facility] [address] [address] [address] Kulwant Brennan Calcium [Mass/Vol] 7.4 mg/dL Critically low 8.5-10.1 [facility] Comment on above: Performed By: #### H STROPN #### [facility] [address] [address] [address] Kulwant Brennan Chloride [Moles/Vol] 102 mmol/L Normal 98-107 [facility] Comment on above: Performed By: #### H STROPN #### [facility] [address] [address] [address] Kulwant Brennan CO2 [Moles/Vol] 27.1 mmol/L Normal 21.0-32.0 [facility] Comment on above: Performed By: #### H STROPN #### [facility] [address] [address] [address] Kulwant Brennan Creatinine [Mass/Vol] 1.42 mg/dL Critically high 0.70-1.30 [facility] Comment on above: Performed By: #### H STROPN #### [facility] [address] [address] [address] Kulwant Brennan EGFR-AF ECUADOREAN 60 mL/min/1.73m2 Normal >=60 [facility] Comment on above: Performed By: #### H STROPN #### [facility] [address] [address] [address] Kulwant Brennan EGFR-NON AF ECUADOREAN 50 mL/min/1.73m2 Critically low >=60 [facility] Comment on above: Performed By: #### H STROPN #### [facility] [address] [address] [address] Kulwant Brennan Globulin (S) [Mass/Vol] 3.5 g/dL Normal [facility] Comment on above: Performed By: #### H STROPN #### [facility] [address] [address] [address] Kulwant Brennan Glucose [Mass/Vol] 139 mg/dL Critically high 74-106 [facility] Comment on above: Performed By: #### H STROPN #### [facility] [address] [address] [address] Kulwant Brennan Potassium [Moles/Vol] 3.9 mmol/L Normal 3.5-5.1 [facility] Comment on above: Performed By: #### H STROPN #### [facility] [address] [address] [address] Kulwant Brennan Protein [Mass/Vol] 7.5 g/dL Normal 6.4-8.2 [facility] Comment on above: Performed By: #### H STROPN #### [facility] [address] [address] [address] Kulwant Brennan Sodium [Moles/Vol] 138 mmol/L Normal 136-145 [facility] Comment on above: Performed By: #### H STROPN #### [facility] [address] [address] [address] Kulwant Brennan Urea nitrogen [Mass/Vol] 27.0 mg/dL Critically high 7.0-18.0 [facility] Comment on above: Performed By: #### H STROPN #### [facility] [address] [place], [place] [address] Dr. Kulwant Brennan Urea nitrogen/Creatinine [Mass ratio] 19.0 mg/mg Normal [facility] Comment on above: Performed By: #### H STROPN #### [facility] [address] [place], [place] [address] Dr. Kulwant Brennan APTTon 12-13-2021 aPTT Coag (Bld) [Time] 32.8 s Normal 25.0-35.0 [facility] Comment on above: Order Comment: No: [...] THIS PURPOSE. Performed By: #### 5 610, [id number] #### [facility] [address] CBC COMPLETE BLOOD COUNTon 0 12-13-2021 Erythrocyte distribution width (RBC) [Ratio] 14.0 % Normal 11.5-15.0 [facility] Comment on above: Order Comment: No: D o not add to previous draw Performed By: #### 5 610, [id number] #### [facility] [address] Hematocrit (Bld) [Volume fraction] 36.7 % Low 39.0-50.0 [facility] Comment on above: Order Comment: No: D o not add to previous draw Performed By: #### 5 610, [id number] #### [facility] [address] [place] [address], [facility] Hemoglobin (Bld) [Mass/Vol] 12.0 g/dL Low 13.0-17.0 [facility] Comment on above: Order Comment: No: D o not add to previous draw Performed By: #### 5 610, [id number] #### [facility] [address] [place] [address], [facility] MCH (RBC) [Entitic mass] 27.5 pg Normal 27.0-33.0 [facility] Comment on above: Order Comment: No: D o not add to previous draw Performed By: #### 5 [id number], [id number] #### [facility] [address] [place] [address], [facility] MCHC (RBC) [Mass/Vol] 32.7 g/dL Normal 32.0-35.0 [facility] Comment on above: Order Comment: No: D o not add to previous draw Performed By: #### 5 6100, [id number] #### [facility] [address] [place] [address], [facility] MCV (RBC) [Entitic vol] 84.0 fL Normal 82.0-98.0 [facility] Comment on above: Order Comment: No: D o not add to previous draw Performed By: #### 5 [id number], [id number] #### [facility] [address] [place] [address], [facility] Nucleated RBC/100 WBC (Bld) [Ratio] 0 % Normal 0-0 [facility] Comment on above: Order Comment: No: D o not add to previous draw Performed By: #### 5 6100, 53830 #### [facility] [address] [place] [address], [facility] PLAT CNT 166 10*3/uL Normal 150-400 [facility] Comment on above: Order Comment: No: D o not add to previous draw Performed By: #### 5 6100, 51659 #### [facility] [address] [place] [address], [facility] RBC (Bld) [#/Vol] 4.37 10*6/uL Normal 4.20-5.70 [facility] Comment on above: Order Comment: No: D o not add to previous draw Performed By: #### 5 6100, 31330 #### [facility] [address] [place] [address], [facility] WBC (Bld) [#/Vol] 8.41 10*3/uL Normal 4.00-10.60 [facility] Comment on above: Order Comment: No: D o not add to previous draw Performed By: #### 5 6100, 13518 #### [facility] [address] [place] [address], [place] COMP METABOLIC PANELon 12-13 Albumin [Mass/Vol] 3.8 g/dL Normal 3.5-5.7 [facility] Comment on above: Order Comment: No: D o not add to previous draw Performed By: #### 5 6100, 28351 #### [facility] [address] [place] [address], [place] ALKALINE PHOSPH 52 IU/L Normal 34-104 [facility] Comment on above: Order Comment: No: D o not add to previous draw Performed By: #### 5 6100, 74215 #### [facility] [address] [place] [address], [place] ALT [Catalytic activity/Vol] 16 U/L Normal 7-52 [facility] Comment on above: Order Comment: No: D o not add to previous draw Performed By: #### 5 6100, 30477 #### [facility] [address] [place] [address], [place] AST [Catalytic activity/Vol] 15 U/L Normal 13-39 [facility] Comment on above: Order Comment: No: D o not add to previous draw Performed By: #### 5 6100, 14595 #### [facility] [address] [place] [address], [place] Bilirubin [Mass/Vol] 0.9 mg/dL Normal 0.3-1.0 [facility] Comment on above: Order Comment: No: D o not add to previous draw Performed By: #### 5 6100, 59645 #### [facility] [address] [place] [address], [place] Calcium [Mass/Vol] 7.0 mg/dL Low 8.6-10.3 [facility] Comment on above: Order Comment: No: D o not add to previous draw Performed By: #### 5 610, 72868 #### [facility] [address] [place] [address], [place] Chloride [Moles/Vol] 106 mmol/L Normal 98-107 [facility] Comment on above: Order Comment: No: D o not add to previous draw Performed By: #### 5 6101, 62556 #### [facility] [address] [place] [address], [place] CO2 [Moles/Vol] 27 mmol/L Normal 21-31 [facility] Comment on above: Order Comment: No: D o not add to previous draw Performed By: #### 5 610, 12316 #### [facility] [address] [place] [address], [place] Creatinine [Mass/Vol] 1.16 mg/dL Normal 0.70-1.30 [facility] Comment on above: Order Comment: No: D o not add to previous draw Performed By: #### 5 6101, 72217 #### [facility] [address] [place] [address], [place] GFR/1.73 sq M.predicted among non-blacks MDRD (S/P/Bld) [Vol rate/Area] mL/min/{1.73_m2} Normal >60 [facility] Comment on above: Order Comment: No: D o not add to previous draw Result Comment: [facility]'s estimated glomerular filtration rate (eGFR) will [...] group of individuals. Performed By: #### 5 610, 06988 #### [facility] [address] [place] [address], [place] Glucose [Mass/Vol] 104 mg/dL High 70-100 [facility] Comment on above: Order Comment: No: D o not add to previous draw Performed By: #### 5 610, 85335 #### [facility] [address] [place] [address], [place] Potassium [Moles/Vol] 4.3 mmol/L Normal 3.5-5.1 [facility] Comment on above: Order Comment: No: D o not add to previous draw Performed By: #### 5 6100, 15231 #### [facility] [address] [place] [address], [place] Protein [Mass/Vol] 6.2 g/dL Normal 6.0-8.3 [facility] Comment on above: Order Comment: No: D o not add to previous draw Performed By: #### 5 610, 88182 #### [facility] [address] [place] [address], [place] Sodium [Moles/Vol] 138 mmol/L Normal 136-145 [facility] Comment on above: Order Comment: No: D o not add to previous draw Performed By: #### 5 610, 84333 #### [facility] [address] [place] [address], [place] Urea nitrogen [Mass/Vol] 26 mg/dL High 7-25 [facility] Comment on above: Order Comment: No: D o not add to previous draw Performed By: #### 5 610, 23835 #### [facility] [address] [place] [address], [place] Cardiovascular Lab Reporton 12-13-2021 Cardiovascular Lab Report [facility] Patient Name: Yoli Antunez [facility] MR #: [id number] Physician: [facility] Service Date: 12/12/2021 Division of Birthdate: 1955 Cardiology Room #: [id number] Adult Cardiovascular Services [facility] [address] [facility]. [place] [place] [id number] Cardiovascular Laboratory Report INDICATION: The patient is [...] the right common femoral vein using a 6-Latvian ProGlide device. METHODS: Procedure was explained to the patient with risks and benefits, he signed informed consent. He was brought to cardiac cath technologist in a fasting state. The procedure was [...] the right common femoral vein and a 6-Latvian x 11 cm sheath was placed. Preclosure in the vein was performed using a 6-Latvian ProGlide device, a transseptal wire was advanced [...] was retracted and exchanged to the Watchman 14-Latvian double curve access sheath. This was not [...] stiffer wire. This was performed using a 6-Latvian multipurpose catheter, through which we advanced a Lunderquist double curve wire and the distal end was placed in the left superior pulmonary vein. This eventually allowed to advance the sheath across the interatrial septum. A 6-Latvian angled pigtail catheter was advanced and used [...] the (more content not included)... Normal [facility] PROTHROMBIN TIMEon INR Coag (PPP) [Relative time] 1.09 {INR} Normal 0.91-1.16 [facility] Comment on above: Order Comment: No: D o not add to previous draw Result Comment: ACC P RECOMMENDED INR FOR WARFARIN THERAPY ------- [...] CHEST 1995;108:[id number]. Performed By: #### 5 6101, [id number] #### [facility] [address] [place] [address], [facility] PT Coag (PPP) [Time] 14.1 s Normal 12.3-14.8 [facility] Comment on above: Order Comment: No: D o not add to previous draw Result Comment: ALL RESULTS MUST BE INTERPRETED WITH RESPECT TO BLOOD DRAWING ARTIFACT OR DILUTION ERROR OF ANTICOAGULANT AT THE TIME OF SAMPLING. Performed By: #### 5 6101, [id number] #### [facility] [address] [place] [address], [facility] TYPE AND SCREENon 12-12-2021 ABO INTERPRETATION O Normal [facility] Comment on above: Performed By: #### 6 2586 #### [facility] [address] [place] [address], [place] RH INTERPRETATION Positive Normal [facility] Comment on above: Performed By: #### 6 2586 #### [facility] [address] [place] [address], [facility] Covid-19 PCR (CVDTB)on 11-20 SARS-CoV-2 (COVID-19) RNA MIKE+probe Ql (Unsp spec) Not detected Normal NOT DETECTED [facility] Comment on above: Result Comment: This test is not yet approved or cleared by the [place] FDA. When there are no FDA-approved or cleared tests available, and other criteria are met, FDA can make tests available under an emergency access mechanism called an Emergency Use Authorization (EUA). The EUA for this test is supported by the Clinical Business Manager of Health and Human Service's (HHS's) declaration [...] SARS-CoV-2. Performed By: #### L ACT #### [facility] [address] [place] [address] Dr. Kulwant Brennan *MRSA/MSSA DNA NASALon 11-21 *MRSA/MSSA DNA NASAL Clinical Report: (D ) Specimen: NASAL SWAB Collected: 11/21/2021 09:15 Status: Final Last Updated: 11/21/2021 12:32 MSSA DNA (Final) Negative MRSA DNA (Final) Negative Normal [facility] Comment on above: Performed By: #### 3 1595 #### [facility] [address] [place] [address], [facility] BASIC METABOLIC PANELon 080 Calcium [Mass/Vol] 7.0 mg/dL Low 8.6-10.3 [facility] Comment on above: Performed By: #### 0 0071 #### [facility] [address] [place] [address], [facility] Chloride [Moles/Vol] 105 mmol/L Normal 98-107 [facility] Comment on above: Performed By: #### 0 0071 #### [facility] [address] [place] [address], [facility] CO2 [Moles/Vol] 25 mmol/L Normal 21-31 [facility] Comment on above: Performed By: #### 0 0071 #### [facility] [address] [place] [address], [facility] Creatinine [Mass/Vol] 1.37 mg/dL High 0.70-1.30 [facility] Comment on above: Performed By: #### 0 0071 #### [facility] [address] [place] [address], [facility] EGFR 56 ml/min/1.73sq m Abnormal >60 [facility] Comment on above: Result Comment: [facility]'s estimated glomerular filtration rate (eGFR) will [...] individuals. Performed By: #### 0 0071 #### [facility] [address] [place] [address], [facility] Glucose [Mass/Vol] 100 mg/dL Normal 70-100 [facility] Comment on above: Performed By: #### 0 0071 #### [facility] [address] [place] [address], [facility] Potassium [Moles/Vol] 4.6 mmol/L Normal 3.5-5.1 [facility] Comment on above: Performed By: #### 0 0071 #### [facility] [address] [place] [address], [facility] Sodium [Moles/Vol] 139 mmol/L Normal 136-145 [facility] Comment on above: Performed By: #### 0 0071 #### [facility] [address] [place] [address], [facility] Urea nitrogen [Mass/Vol] 26 mg/dL High 7-25 [facility] Comment on above: Performed By: #### 0 0071 #### [facility] [address] [place] [address], [facility] CBC COMPLETE BLOOD COUNTon 0 11-21-2021 Erythrocyte distribution width (RBC) [Ratio] 14.2 % Normal 11.5-15.0 [facility] Comment on above: Performed By: #### 5 [id number], 14354 #### [facility] [address] [place] [address], [facility] Hematocrit (Bld) [Volume fraction] 40.6 % Normal 39.0-50.0 [facility] Comment on above: Performed By: #### 5 610, 51238 #### [facility] [address] [place] [address], [facility] Hemoglobin (Bld) [Mass/Vol] 13.0 g/dL Normal 13.0-17.0 [facility] Comment on above: Performed By: #### 5 6101, 20090 #### [facility] [address] [place] [address], [facility] MCH (RBC) [Entitic mass] 27.0 pg Normal 27.0-33.0 [facility] Comment on above: Performed By: #### 5 610, 24304 #### [facility] [address] [place] [address], [place] MCHC (RBC) [Mass/Vol] 32.0 g/dL Normal 32.0-35.0 [facility] Comment on above: Performed By: #### 5 610, 73250 #### [facility] [address] [place] [address], [facility] MCV (RBC) [Entitic vol] 84.4 fL Normal 82.0-98.0 [facility] Comment on above: Performed By: #### 5 6100, 10740 #### [facility] [address] [place] [address], [facility] Nucleated RBC/100 WBC (Bld) [Ratio] 0 % Normal 0-0 [facility] Comment on above: Performed By: #### 5 6100, 08418 #### [facility] [address] [place] [address], [facility] PLAT CNT 232 10*3/uL Normal 150-400 [facility] Comment on above: Performed By: #### 5 6100, 34365 #### [facility] [address] [place] [address], [facility] RBC (Bld) [#/Vol] 4.81 10*6/uL Normal 4.20-5.70 [facility] Comment on above: Performed By: #### 5 6100, 66297 #### [facility] [address] [place] [address], [facility] WBC (Bld) [#/Vol] 7.53 10*3/uL Normal 4.00-10.60 [facility] Comment on above: Performed By: #### 5 610, 45094 #### [facility] [address] [place] [address], [facility] CHEST AND LATERALon 11-22-19 22 CHEST AND LATERAL [facility] Department of Radiology [address] [place] [id number] Patient Name: YOLI ANTUNEZ : 1955 Sex: [...] device. Electronically signed: Danilo Bhandari. Transcribed by: [email or web address], User Resident: Electronically Signed by: DANILO BHANDARI @ 11/21/2021 11:32 AM Normal [facility] Comment on above: Order Comment: No: D o not add to previous draw Covid-19 PCR (CVDTBH)on 10-21 SARS-CoV-2 (COVID-19) RNA MIKE+probe Ql (Unsp spec) Not detected Normal NOT DETECTED [facility] Comment on above: Result Comment: This test is not yet approved or cleared by the [place] FDA. When there are no FDA-approved or cleared tests available, and other criteria are met, FDA can make tests available under an emergency access mechanism called an Emergency Use Authorization (EUA). The EUA for this test is supported by the [place] of Health and Human Service's (HHS's) declaration [...] consistent with SARS-CoV-2. Performed By: #### [facility] ####[facility] [address] [place], [place] [address]KhAmarjit Kulwant Mika Cardiovascular Lab Reporton 11-09-2021 Cardiovascular Lab Report [facility] MR #: [id number] Department of Physician: Lalito Joshi MD Medicine Service Date: 11/09/2021 Division of Birthdate: 1955 Cardiology Room #: [facility] Services [place] [address] Cardiovascular Laboratory Report LOOP IMPLANT PROCEDURE NOTE [...] the sternum on the left using the [employer] tool. The loop recorder was then injected [...] observed. LOOP details: Device Model: M301 Serial#: [id number] Sensin.16mV. IMPRESSION: Successful placement of LOOP implant with excellent sensing parameters. RECOMMENDATIONS: 1. Occlusive dressing to be changed after 7 days. 2. Do not wet the incision. Lalito Joshi MD Cardiac Electrophysiology. Electronically Signed by: Lalito Joshi MD 11/10/2021 11:10 A Lalito Joshi MD Date Dict: 11/09/2021/08:45 A/Lalito Joshi MD Date Trans: 11/09/2021 11:32 A/liliane [id number] cc: Radha Burris M.D. [address] [facility] [address] Normal [facility] POC SARS COV2 IDon 2 SARS-CoV-2 (COVID-19) RNA MIKE+probe Ql (Unsp spec) Negative Normal NEGATIVE [facility] Comment on above: Result Comment: ID [...] of Accreditation. Performed By: #### 5 6101, 29493 #### [facility] [address] [place] [address], [facility] BNPon 10-03-2021 Natriuretic peptide B (Bld) [Mass/Vol] 75.0 pg/mL Normal <=900.0 [facility] Comment on above: Performed By: #### H STROPN #### [facility] [address] [place] [address] Dr. Kulwant Brennan CARDIAC MAYELIN ADMITon 022 CK [Catalytic activity/Vol] 142 U/L Normal 39-308 [facility] Comment on above: Performed By: #### H STROPN #### [facility] [address] [place] [address] Dr. Kulwant Brennan CK.MB [Mass/Vol] 1.15 ng/mL Normal <=3.60 [facility] Comment on above: Performed By: #### H STROPN #### [facility] [address] [place] [address] Dr. Kulwant Brennan HSTROP 4.0 pg/mL Normal 4.0-76.1 [facility] Comment on above: Result Comment: CUT- OFF POINTS HAVE BEEN ESTABLISHED BASED ON THE FOURTH UNIVERSAL DEFINITIONS OF MYOCARDIAL INFARCTION. THE UPPER REFERENCE LIMIT (URL) OF TROPONIN, DEFINED THE 99TH PERCENTILE OF cTnI DISTRIBUTION IN A REFERENCE POPULATION, HAS BEEN CONFIRMED THE DECISION THRESHOLD FOR [place] DIAGNOSIS. Performed By: #### H STROPN #### [facility] [address] [place] [address] Dr. Kulwant Brennan EFRAIN 57 ng/mL Normal 16-96 [facility] Comment on above: Performed By: #### H STROPN #### [facility] [address] [place] [address] Dr. Kulwant Brennan CBC AUTO DIFFon 10-03-2021 BASO # 0.0 103/ul Normal 0.0-0.1 [facility] Comment on above: Performed By: #### H STROPN #### [facility] [address] [place] [address] [address] Kulwant Brennan Basophils/100 WBC (Bld) 0.4 % Normal 0.2-2.0 [facility] Comment on above: Performed By: #### H STROPN #### [facility] [address] [place] [address] [address] Kulwant Brennan EO # 0.2 103/ul Normal 0.0-0.7 [facility] Comment on above: Performed By: #### H STROPN #### [facility] [address] [place] [address] Dr. Kulwant Brennan Eosinophils/100 WBC (Bld) 2.6 % Normal 0.9-7.0 [facility] Comment on above: Performed By: #### H STROPN #### [facility] [address] [place] [address] Dr. Kulwant Brennan Erythrocyte distribution width (RBC) [Ratio] 14.6 % Normal 11.0-15.0 [facility] Comment on above: Performed By: #### H STROPN #### [facility] [address] [place] [address] Dr. Kulwant Brennan Hematocrit (Bld) [Volume fraction] 43.0 % Normal 42.0-54.0 [facility] Comment on above: Performed By: #### H STROPN #### [facility] [address] [place] [address] Dr. Kulwant Brennan Hemoglobin (Bld) [Mass/Vol] 13.6 g/dL Critically low 14.0-18.0 [facility] Comment on above: Performed By: #### H STROPN #### [facility] [address] [place] [address] Dr. Kulwant Brennan IG # 0.03 10e3/ul Normal 0.00-0.03 [facility] Comment on above: Performed By: #### H STROPN #### [facility] [address] [place] [address] Dr. Kulwant Brennan IG % 0.4 % Normal 0.0-0.5 [facility] Comment on above: Performed By: #### H STROPN #### [facility] [address] [place] [address] [address] Kulwant Brennan LYMPH # 1.8 103/ul Normal 1.2-3.8 [facility] Comment on above: Performed By: #### H STROPN #### [facility] [address] [place] [address] [address] Kulwant Brennan Lymphocytes/100 WBC (Bld) 25.3 % Normal 20.5-60.0 [facility] Comment on above: Performed By: #### H STROPN #### [facility] [address] [place] [address] [address] Kulwant Brennan MANUAL DIFF REQ NO Normal [facility] Comment on above: Performed By: #### H STROPN #### [facility] [address] [place] [address] Dr. Kulwant Brennan MCH (RBC) [Entitic mass] 27.1 pg Normal 25.9-34.0 [facility] Comment on above: Performed By: #### H STROPN #### [facility] [address] [place] [address] Dr. Kulwant Brennan MCHC (RBC) [Mass/Vol] 31.6 g/dL Normal 29.9-35.2 [facility] Comment on above: Performed By: #### H STROPN #### [facility] [address] [place] [address] Dr. Kulwant Brennan MCV (RBC) [Entitic vol] 85.8 fL Normal 80.0-94.0 [facility] Comment on above: Performed By: #### H STROPN #### [facility] [address] [place] [address] Dr. Kulwant Brennan MONO # 0.8 103/ul Normal 0.3-0.8 [facility] Comment on above: Performed By: #### H STROPN #### [facility] [address] [place] [address] [address] Kulwant Brennan Monocytes/100 WBC (Bld) 11.9 % Normal 1.7-12.0 [facility] Comment on above: Performed By: #### H STROPN #### [facility] [address] [place] [address] Dr. Kulwant Brennan NEUT # 4.1 103/ul Normal 1.4-6.5 [facility] Comment on above: Performed By: #### H STROPN #### [facility] [address] [place] [address] Dr. Kulwant Brennan Neutrophils/100 WBC (Bld) 59.4 % Normal 43.0-75.0 [facility] Comment on above: Performed By: #### H STROPN #### [facility] [address] [place] [address] Dr. Kulwant Brennan Platelet mean volume (Bld) [Entitic vol] 9.8 fL Normal 9.5-13.5 [facility] Comment on above: Performed By: #### H STROPN #### [facility] [address] [place] [address] Dr. Kulwant Brennan PLT 201 103/ul Normal 150-450 [facility] Comment on above: Performed By: #### H STROPN #### [facility] [address] [place] [address] Dr. Kulwant Brennan RBC 5.01 106/ul Normal 4.70-6.10 [facility] Comment on above: Performed By: #### H STROPN #### [facility] [address] [place] [address] Dr. Kulwant Brennan WBC 7.0 103/ul Normal 4.0-11.0 [facility] Comment on above: Performed By: #### H STROPN #### [facility] [address] [place] [address] HEAD WO CONon [...] DONNELL DU Date: 2021-10-03 11:41 Normal [facility] CTA CHEST WO W CONon 022 [...] DONNELL DU Date: 2021-10-03 11:50 Normal [facility] ER URINE PROFILEon 2 Bilirubin Ql (U) Negative Normal NEGATIVE [facility] Comment on above: Performed By: #### H STROPN #### [facility] [address] [place] [address] Dr. Kulwant Brennan Clarity (U) CLEAR Normal CLEAR [facility] Comment on above: Performed By: #### H STROPN #### [facility] [address] [place] [address] [address] Kulwant Brennan Color (U) LT. YELLOW Normal YELLOW [facility] Comment on above: Performed By: #### H STROPN #### [facility] [address] [place] [address] Dr. Kulwant Brennan ERUAHD A micrscopic examina tion will be performed if indicated. Normal [facility] Comment on above: Performed By: #### H STROPN #### [facility] [address] [place] [address] Dr. Kulwant Brennan Glucose Ql (U) Negative Normal NEGATIVE [facility] Comment on above: Performed By: #### H STROPN #### [facility] [address] [place] [address] Dr. Kulwant Brennan Hemoglobin Ql (U) Negative Normal NEGATIVE [facility] Comment on above: Performed By: #### H STROPN #### [facility] [address] [place] [address] Dr. Kulwant Brennan Ketones Ql (U) Negative Normal NEGATIVE [facility] Comment on above: Performed By: #### H STROPN #### [facility] [address] [place] [address] Dr. Kulwant Brennan LEUKOCYTES Negative Normal NEGATIVE [facility] Comment on above: Performed By: #### H STROPN #### [facility] [address] [place] [address] Dr. Kulwant Brennan Nitrite Ql (U) Negative Normal NEGATIVE [facility] Comment on above: Performed By: #### H STROPN #### [facility] [address] [place] [address] Dr. Kulwant Brennan pH (U) 5.5 [pH] Normal 5-9 [facility] Comment on above: Performed By: #### H STROPN #### [facility] [address] [place] [address] Dr. Kulwant Brennan SPEC GRAVITY 1.025 Normal 1.005-<=1. 025 [facility] Comment on above: Performed By: #### H STROPN #### [facility] [address] [place] [address] Dr. Kulwant Brennan UA PROTEIN Negative Normal NEGATIVE/ TRACE [facility] Comment on above: Performed By: #### H STROPN #### [facility] [address] [place] [address] Dr. Kulwant Brennan UR MICRO IND NOT INDICATED Normal [facility] Comment on above: Performed By: #### H STROPN #### [facility] [address] [place] [address] Dr. Kulwant Brennan Urobilinogen Qn (U) 0.2 {Luis'U}/dL Normal 0.2 - 1. 0 [facility] Comment on above: Performed By: #### H STROPN #### [facility] [address] [place] [address] Dr. Kulwant Brennan PROF 14(COMP METB)on 022 Albumin [Mass/Vol] 3.9 g/dL Normal 3.4-5.0 [facility] Comment on above: Performed By: #### H STROPN #### [facility] [address] [place] [address] Dr. Kulwant Brennan Albumin/Globulin [Mass ratio] 1.0 {ratio} Normal [facility] Comment on above: Performed By: #### H STROPN #### [facility] [address] [place] [address] Dr. Kulwant Brennan ALP [Catalytic activity/Vol] 59 U/L Normal 46-116 [facility] Comment on above: Performed By: #### H STROPN #### [facility] [address] [place] [address] Dr. Kulwant Brennan ALT [Catalytic activity/Vol] 30 U/L Normal 16-63 [facility] Comment on above: Performed By: #### H STROPN #### [facility] [address] [place] [address] Dr. Kulwant Brennan Anion gap [Moles/Vol] 13.4 mmol/L Normal [facility] Comment on above: Performed By: #### H STROPN #### [facility] [address] [place] [address] Dr. Kulwant Brennan AST [Catalytic activity/Vol] 14 U/L Critically low 15-37 [facility] Comment on above: Performed By: #### H STROPN #### [facility] [address] [place] [address] [address] Kulwant Brennan Bilirubin [Mass/Vol] 0.6 mg/dL Normal 0.2-1.0 [facility] Comment on above: Performed By: #### H STROPN #### [facility] [address] [place] [address] [address] Kulwant Brennan Calcium [Mass/Vol] 7.6 mg/dL Critically low 8.5-10.1 [facility] Comment on above: Performed By: #### H STROPN #### [facility] [address] [place] [address] Dr. Kulwant Brennan Chloride [Moles/Vol] 107 mmol/L Normal 98-107 [facility] Comment on above: Performed By: #### H STROPN #### [facility] [address] [place] [address] Dr. Kulwant Brennan CO2 [Moles/Vol] 24.4 mmol/L Normal 21.0-32.0 [facility] Comment on above: Performed By: #### H STROPN #### [facility] [address] [place] [address] Dr. Kulwant Brennan Creatinine [Mass/Vol] 1.36 mg/dL Critically high 0.70-1.30 [facility] Comment on above: Performed By: #### H STROPN #### [facility] [address] [place] [address] Dr. Kulwant Brennan EGFR-AF ECUADOREAN >60 Normal >=60 [facility] Comment on above: Performed By: #### H STROPN #### [facility] [address] [place] [address] Dr. Kulwant Brennan EGFR-NON AF ECUADOREAN 52 mL/min/1.73m2 Critically low >=60 [facility] Comment on above: Performed By: #### H STROPN #### [facility] [address] [place] [address] Dr. Kulwant Brennan Globulin (S) [Mass/Vol] 3.8 g/dL Normal [facility] Comment on above: Performed By: #### H STROPN #### [facility] [address] [place] [address] [address] Kulwant Brennan Glucose [Mass/Vol] 99 mg/dL Normal 74-106 [facility] Comment on above: Performed By: #### H STROPN #### [facility] [address] [address] [address] Kulwant Brennan Potassium [Moles/Vol] 3.8 mmol/L Normal 3.5-5.1 [facility] Comment on above: Performed By: #### H STROPN #### [facility] [address] [place] [address] Dr. Kulwant Brennan Protein [Mass/Vol] 7.7 g/dL Normal 6.4-8.2 [facility] Comment on above: Performed By: #### H STROPN #### [facility] [address] [place] [address] [address] Kulwant Brennan Sodium [Moles/Vol] 141 mmol/L Normal 136-145 [facility] Comment on above: Performed By: #### H STROPN #### [facility] [address] [place] [address] Dr. Kulwant Brennan Urea nitrogen [Mass/Vol] 24.0 mg/dL Critically high 7.0-18.0 [facility] Comment on above: Performed By: #### H STROPN #### [facility] [address] [place] [address] [address] Kulwant Brennan Urea nitrogen/Creatinine [Mass ratio] 17.6 mg/mg Normal [facility] Comment on above: Performed By: #### H STROPN #### [facility] [address] [place] [address] [address] Kulwant Brennan PROTIMEon 10-03-2021 INR Coag (PPP) [Relative time] 1.04 {INR} Normal [facility] Comment on above: Performed By: #### P T, PTT ####[facility] [address] [place] [address]Dr. Kulwant Brennan INR GUIDELINES SEE BELOW Normal [facility] Comment on above: Result Comment: HAYDEE RED INR: 2.0 - 3.0 CONDITIONS NOT LISTED BELOW 2.5 - 3.5 FOR PROSTHETIC HEART VALVE REPLACEMENT 2.5 - 3.5 RECURRENT THROMBOSIS Performed By: #### P T, PTT ####[facility] [address] [place], [place] [address]MdAmarjit Brennan PT Coag (PPP) [Time] 11.2 s Normal 9.0-11.6 [facility] Comment on above: Performed By: #### P T, PTT ####[facility] [address] [place], [place] [address]CsDr. Kulwant Brennan PTTon 10-03-2021 aPTT Coag (Bld) [Time] 33.1 s Normal 22.3-36.2 [facility] Comment on above: Performed By: #### P T, PTT ####[facility] [address] [place] [address]DrAmarjit Brennan TROPONIN, HIGH SENSITIVITYon 10-03-2021 HSTROP 5.1 pg/mL Normal 4.0-76.1 [facility] Comment on above: Result Comment: CUT- OFF POINTS HAVE BEEN ESTABLISHED BASED ON THE FOURTH UNIVERSAL DEFINITIONS OF MYOCARDIAL INFARCTION. THE UPPER REFERENCE LIMIT (URL) OF TROPONIN, DEFINED THE 99TH PERCENTILE OF cTnI DISTRIBUTION IN A REFERENCE POPULATION, HAS BEEN CONFIRMED THE DECISION THRESHOLD FOR [place] DIAGNOSIS. Performed By: #### H STROPN #### [facility] [id number] 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 on 10/04/2021 at 12:09 Normal [facility] XR CHEST 1 Von 10-03-2021 XR [...] ELENA EMERY Date: 2021-10-03 13:00 Normal [facility] ANAon 09-29-2021 KYLE PATTERN NUCLEOLAR Normal [facility] Comment on above: Result Comment: The [...] authority. Performed By: #### 1 0196 #### [facility] [address] [place] [address], [facility] KYLE SCREEN 1:40 Normal <1:40,1:40 [facility] Comment on above: Result Comment: Test performed using KHALIDA IFA KYLE Hep-2 Test, a pre-standardized assay designed for the qualitative and semi-quantitative detection of antinuclear antibodies. Performed By: #### 1 0196 #### [facility] [address] [place] [address], [facility] C REACTIVE PROTEINon 022 CRP [Mass/Vol] 3.1 mg/L Normal 0.0-7.0 [facility] Comment on above: Performed By: #### 5 6101, [id number] #### [facility] [address] [place] [id number] 09-29-2021 CYCLIC CIT PEP 4 Units Normal 0-19 [facility] Comment on above: Result Comment: INTE [...] be monitored and testing repeated. Performed By: [facility] [address] [place] [id number] Typesetting Machine Operator/Tender: Jaz Villareal MD RHEUMATOID FACTOR SERUMon RA <20 Normal 0-20 [facility] Comment on above: Performed By: #### 5 2701, [id number] #### [facility] [address] [place] [address], [facility] SEDIMENTATION RATEon SED RATE 12 mm/hr High 0-10 [facility] Comment on above: Performed By: #### 5 6506 #### [facility] [address] US ANDREW DOP LEG BILon 022 US ANDREW DOP LEG RIOS EXAMINATION: US ANDREW DOP LEG RIOS HISTORY: Pain in right leg COMPARISON: No relevant comparison available. TECHNIQUE: Grayscale and color ultrasound FINDINGS: Region: Bilateral legs Thrombus: None Flow: Normal Compressibility: Normal Augmentation: Normal IMPRESSION: No deep or superficial vein thrombus in the legs *Exam performed in accordance with [facility] practice guidelines- Peripheral venous ultrasound, July 16, 2009. Electronically authenticated by: ERICK DEL ANGEL Date: 2021-09-27 16:12 Normal [facility] CT Head or Brain w/o Contras [...] by Hollis Cadet on 09/11/2021 [address] [facility] Comprehensive Metabolic Pane julian 06-27-2021 Albumin [Mass/Vol] 4.9 g/dL Normal 3.6-5.1 [facility] Comment on above: Performed By: #### C MP #### [facility] [address] [place], [place] [id number] Albumin/Globulin [Mass ratio] 1.8 {ratio} Normal 1.0-2.[address] [facility] Comment on above: Performed By: #### C MP #### [facility] [address] [place], [place] [id number] ALP [Catalytic activity/Vol] 83 U/L Normal 40-[address] [facility] Comment on above: Performed By: #### C MP #### [facility] [address] [place], [place] [id number] ALT [Catalytic activity/Vol] 20 U/L Normal 9-[address] [facility] Comment on above: Result Comment: 03/22 Female reference range changed. Performed By: #### C MP #### [facility] [address] [place], [place] [id number] Anion gap [Moles/Vol] 18 mmol/L Normal 12-[address] [facility] Comment on above: Result Comment: Efflilly ctive 04/27/2019 reference range changed. Performed By: #### C MP #### [facility] [address] [place], [place] [id number] AST [Catalytic activity/Vol] 18 U/L Normal 10-[address] [facility] Comment on above: Performed By: #### C MP #### [facility] [address] [place], [place] [id number] Bilirubin [Mass/Vol] 0.33 mg/dL Normal 0.30-1.20 [facility] Comment on above: Performed By: #### C MP #### [facility] [address] [place], [place] [id number] BUN/CREA 20 Ratio Normal 6-[address] [facility] Comment on above: Performed By: #### C MP #### [facility] [address] [place], [place] [id number] Calcium [Mass/Vol] 8.4 mg/dL Low 8.6-10.2 [facility] Comment on above: Performed By: #### C MP #### [facility] [address] [place], [place] [id number] Chloride [Moles/Vol] 106 mmol/L Normal 98-107 [facility] Comment on above: Performed By: #### C MP #### [facility] [address] [place], [place] [id number] CO2 [Moles/Vol] 24 mmol/L Normal 20-[address] [facility] Comment on above: Performed By: #### C MP #### [facility] [address] [place], [place] [id number] Creatinine [Mass/Vol] 1.4 mg/dL Normal 0.7-1.[address] [facility] Comment on above: Performed By: #### C MP #### [facility] [address] [place], [place] [id number] eGFRAA 59 mL/min/1.73m2 Low >60 [facility] Comment on above: Performed By: #### C MP #### [facility] [address] [place], [place] [id number] eGFRNAA 49 mL/min/1.73m2 Low >60 [facility] Comment on above: Performed By: #### C MP #### [facility] [address] [place], [place] [id number] Globulin (S) [Mass/Vol] 2.7 g/dL Normal 1.9-3.7 [facility] Comment on above: Performed By: #### C MP #### [facility] [address] [place], [place] [id number] Glucose [Mass/Vol] 98 mg/dL Normal 65-99 [facility] [place] [facility] Comment on above: Result Comment: For FASTING Glucose --- ADA reference ranges: Normal 65-99 mg/dl Prediabetes 100-125 Diabetes >/= 126 Performed By: #### C MP #### [facility] [address] [place], [place] [id number] Potassium [Moles/Vol] 5.0 mmol/L Normal 3.5-5.5 [facility] Comment on above: Performed By: #### C MP #### [facility] [address] [place], [place] [id number] Protein [Mass/Vol] 7.6 g/dL Normal 6.1-8.1 [facility] [place] [facility] Comment on above: Performed By: #### C MP #### [facility] [address] [place], [place] [id number] Sodium [Moles/Vol] 143 mmol/L Normal 135-146 [facility] [place] [facility] Comment on above: Performed By: #### C MP #### [facility] [address] [place], [place] [id number] Urea nitrogen [Mass/Vol] 30 mg/dL High 7-25 [facility] Comment on above: Performed By: #### C MP #### [facility] [address] [place], [place] [id number] Magnesiumon 06-07-2021 Magnesium [Mass/Vol] 2.0 mg/dL Normal 1.5-2.3 [facility] [place] [facility] Comment on above: Performed By: #### V ITD, MG, PHOS #### [facility] [address] [place], [place] [id number] Parathyroid Hormone, Intacto n 06-07-2021 PTH 12.53 pg/mL Low 16.00-65.0 0 [facility] Comment on above: Performed By: #### P TH* #### [facility] [address] [place], [place] [id number] Phosphoruson 06-07-2021 Phosphate [Mass/Vol] 4.3 mg/dL Normal 2.2-4.4 [facility] Comment on above: Performed By: #### V ITD MG, PHOS #### [facility] [address] [place], [place] [id number] Q - CALCIUM,IONIZEDon 2021 CALCIUM, IONIZED 4.0 mg/dL Low 4.8-5.6 [facility] Comment on above: Order Comment: [facility] performed at: QPT, [facility], [address], [address] [place] [address], [address], Typesetting Machine Operator/Tender: Janes Vasquez MDQuest Collection Date/Time: [id number] Results Received Date/Time: [id number] Reported Date/Time: Performed By: #### C MP, CBCAD, TSH #### [facility] [address] [place], [place] [id number] Vitamin D 25-OHon 06-07-2021 VIT D 25 OH 27 ng/ml Low >29 [facility] Comment on above: Result Comment: Merlene min D Status Deficiency <20 ng/mL Insufficiency 20-29 ng/mL Optimal 30-100 ng/mL Possible Toxicity >=150 ng/mL Performed By: #### V ITD, MG, PHOS #### [facility] [address] [place], [place] [id number] Complete Blood Count with Au to Diffon 06-06-2021 Basophils (Bld) [#/Vol] 0.04 10*3/uL Normal 0.00-0.20 [facility] Comment on above: Performed By: #### C MP, CBCAD, TSH #### [facility] [address] [place], [place] [id number] Basophils/100 WBC (Bld) 0.6 % Normal [facility] [place] [facility] Comment on above: Performed By: #### C MP, CBCAD, TSH #### [facility] [address] [place], [place] [id number] Eosinophils (Bld) [#/Vol] 0.28 10*3/uL Normal 0.02-0.50 [facility] Comment on above: Performed By: #### C MP, CBCAD, TSH #### [facility] [address] [place], [place] [id number] Eosinophils/100 WBC (Bld) 4.1 % Normal [facility] Comment on above: Performed By: #### C MP, CBCAD, TSH #### [facility] [address] [place], [place] [id number] Erythrocyte distribution width (RBC) [Ratio] 14.5 % Normal 11.0-15.0 [facility] Comment on above: Performed By: #### C MP, CBCAD, TSH #### [facility] [address] [place], [place] [id number] Hematocrit (Bld) [Volume fraction] 43.0 % Normal 38.5-50.0 [facility] Comment on above: Performed By: #### C MP, CBCAD, TSH #### [facility] [address] [place], [place] [id number] Hemoglobin (Bld) [Mass/Vol] 13.7 g/dL Normal 13.0-17.1 [facility] Comment on above: Performed By: #### C MP, CBCAD, TSH #### [facility] [address] [place], [place] [id number] Lymphocytes (Bld) [#/Vol] 1.6 10*3/uL Normal 0.9-3.9 [facility] Comment on above: Performed By: #### C MP, CBCAD, TSH #### [facility] [address] [place], [place] [id number] Lymphocytes/100 WBC (Bld) 22.6 % Normal [facility] Comment on above: Performed By: #### C MP, CBCAD, TSH #### [facility] [address] [place], [place] [id number] MCH (RBC) [Entitic mass] 26.1 pg Low 27.0-33.0 [facility] Comment on above: Performed By: #### C MP, CBCAD, TSH #### [facility] [address] [place], [place] [id number] MCHC (RBC) [Mass/Vol] 31.9 g/dL Low 32.0-36.0 [facility] Comment on above: Performed By: #### C MP, CBCAD, TSH #### [facility] [address] [place], [place] [id number] MCV (RBC) [Entitic vol] 82 fL Normal 80-100 [facility] Comment on above: Performed By: #### C MP, CBCAD, TSH #### [facility] [address] [place], [place] [id number] Monocytes (Bld) [#/Vol] 0.7 10*3/uL Normal 0.2-0.9 [facility] Comment on above: Performed By: #### C MP, CBCAD, TSH #### [facility] [address] [place], [place] [id number] Monocytes/100 WBC (Bld) 10.1 % Normal [facility] Comment on above: Performed By: #### C MP, CBCAD, TSH #### [facility] [address] [place], [place] [id number] Neutrophils (Bld) [#/Vol] 4.3 10*3/uL Normal 1.5-7.8 [facility] Comment on above: Performed By: #### C MP, CBCAD, TSH #### [facility] [address] [place], [place] [id number] Neutrophils/100 WBC (Bld) 62.0 % Normal [facility] Comment on above: Performed By: #### C MP, CBCAD, TSH #### [facility] [address] [place], [place] [id number] Platelet mean volume (Bld) [Entitic vol] 10.90 fL Normal 7.50-12.50 [facility] Comment on above: Performed By: #### C MP, CBCAD, TSH #### [facility] [address] [place], [place] [id number] Platelets (Bld) [#/Vol] 250 10*3/uL Normal 140-400 [facility] Comment on above: Performed By: #### C FILIBERTO, CBCAD, TSH #### [facility] [address] [place], [place] [id number] RBC (Bld) [#/Vol] 5.25 10*6/uL Normal 4.20-5.80 [facility] Comment on above: Performed By: #### C FILIBERTO, CBCAD, TSH #### [facility] [address] [place], [place] [id number] RDW-SD 43.3 fL Normal 37.0-50.0 [facility] Comment on above: Performed By: #### C FILIBERTO, CBCAD, TSH #### [facility] [address] [place], [place] [id number] WBC (Bld) [#/Vol] 6.9 10*3/uL Normal 3.8-11.0 [facility] Comment on above: Performed By: #### C FILIBERTO CBCAD, TSH #### [facility] [address] [place], [place] [id number] Comprehensive Metabolic Pane [facility] 06-06-2021 Albumin [Mass/Vol] 4.7 g/dL Normal 3.6-5.1 [facility] Comment on above: Performed By: #### C FILIBERTO, CBCAD, TSH #### [facility] [address] [place], [place] [id number] Albumin/Globulin [Mass ratio] 1.8 {ratio} Normal 1.0-2.5 [facility] Comment on above: Performed By: #### C FILIBERTO, CBCAD, TSH #### [facility] [address] [place], [place] [id number] ALP [Catalytic activity/Vol] 87 U/L Normal 40-129 [facility] Comment on above: Performed By: #### C FILIBERTO, CBCAD, TSH #### [facility] [address] [place], [place] [id number] ALT [Catalytic activity/Vol] 22 U/L Normal 9-46 [facility] Comment on above: Result Comment: 03/22 Female reference range changed. Performed By: #### C FILIBERTO, CBCAD, TSH #### [facility] [address] [place], [place] [id number] Anion gap [Moles/Vol] 20 mmol/L Normal 12-[address] [facility] Comment on above: Result Comment: Ruth ctive 04/27/2019 reference range changed. Performed By: #### C MP, CBCAD, TSH #### [facility] [address] [place] [id number] AST [Catalytic activity/Vol] 18 U/L Normal 10-[address] [facility] Comment on above: Performed By: #### C MP, CBCAD, TSH #### [facility] [address] [facility] [place] [id number] BUN/CREA 19 Ratio Normal 6-[address] [facility] Comment on above: Performed By: #### C MP, CBCAD, TSH #### [facility] [address] [place], [place] [id number] Calcium [Mass/Vol] 7.4 mg/dL Low 8.6-10.2 [facility] Comment on above: Performed By: #### C MP, CBCAD, TSH #### [facility] [address] [place], [place] [id number] Chloride [Moles/Vol] 106 mmol/L Normal 98-107 [facility] Comment on above: Performed By: #### C MP, CBCAD, TSH #### [facility] [address] [place], [place] [id number] CO2 [Moles/Vol] 20 mmol/L Normal 20-[address] [facility] Comment on above: Performed By: #### C MP, CBCAD, TSH #### [facility] [address] [facility] [id number] Creatinine [Mass/Vol] 1.5 mg/dL High 0.7-1.[address] [facility] Comment on above: Performed By: #### C MP, CBCAD, TSH #### [facility] [address] [place] [id number] eGFRAA 59 mL/min/1.73m2 Low >[address] [facility] Comment on above: Performed By: #### C MP, CBCAD, TSH #### [facility] [address] [place], [place] [id number] eGFRNAA 48 mL/min/1.73m2 Low >60 [facility] Comment on above: Performed By: #### C MP, CBCAD, TSH #### [facility] [address] [place], [place] [id number] Globulin (S) [Mass/Vol] 2.6 g/dL Normal 1.9-3.7 [facility] Comment on above: Performed By: #### C MP, CBCAD, TSH #### [facility] [address] [place], [place] [id number] Glucose [Mass/Vol] 112 mg/dL High 65-99 [facility] Comment on above: Result Comment: For FASTING Glucose --- ADA reference ranges: Normal 65-99 mg/dl Prediabetes 100-125 Diabetes >/= 126 Performed By: #### C MP, CBCAD, TSH #### [facility] [address] [place], [place] [id number] Potassium [Moles/Vol] 4.3 mmol/L Normal 3.5-5.5 [facility] Comment on above: Performed By: #### C MP, CBCAD, TSH #### [facility] [address] [place], [place] [id number] Protein [Mass/Vol] 7.3 g/dL Normal 6.1-8.1 [facility] Comment on above: Performed By: #### C MP, CBCAD, TSH #### [facility] [address] [place], [place] [id number] Sodium [Moles/Vol] 142 mmol/L Normal 135-146 [facility] Comment on above: Performed By: #### C MP, CBCAD, TSH #### [facility] [address] [place], [place] [id number] TBIL <0.3 Normal [facility] Comment on above: Performed By: #### C MP, CBCAD, TSH #### [facility] [address] [place], [place] [id number] Urea nitrogen [Mass/Vol] 27 mg/dL High 7-25 [facility] Comment on above: Performed By: #### C MP, CBCAD, TSH #### [facility] [address] [place], [place] [id number] Q - TROPONIN Ion 06-06-2021 TROPONIN I 3 ng/L Normal < OR = 47 [facility] Comment on above: Order Comment: [facility] performed at: QPT, [facility], [address], [address] [facility], [place], [address], Typesetting Machine Operator/Tender: Janes Vasquez MDQuest Collection Date/Time: [id number] Results Received Date/Time: [id number] Reported Date/Time: Result Comment: In accord with published recommendations, serial testing of troponin I at intervals of 2 to 4 hours for up to 12 to 24 hours is suggested in order to corroborate a single troponin I result. An elevated troponin alone is not sufficient to make the diagnosis of [place]. Performed By: #### C MP, CBCAD, TSH #### [facility] [address] [place], [place] [id number] TSHon 06-06-2021 TSH 0.917 uIU/mL Normal 0.400-4.50 0 [facility] Comment on above: Performed By: #### C FILIBERTO, CBCAD, TSH #### [facility] [address] [place], [place] [id number] CT Chest WO contraston 05-01 IMPRESSION: 1. Mild bronchiectasis in both lower lobes, the right middle lobe and the lingula, consistent with remote or chronic airways inflammation. In this distribution, sequelae of chronic aspiration pneumonitis must be considered. A type III hiatal hernia is noted. 2. Fusiform dilation of the ascending thoracic aorta, stable in appearance since the exam dated 01/05/2021. Conference Center Coordinator: PSCB Transcribe Date/Time: May 01 2021 8:27A Dictated by : MASSIMO OAKES MD This examination was interpreted and the report reviewed and electronically signed by: MASSIMO OAKES MD on May 01 2021 8:49AM [facility] DIVISION OF RADIOLOGY * * *Final Report* * * DATE OF EXAM: May 01 2021 8:21AM [facility] 0541 - CT CHEST WO IVCON / PROCEDURE REASON: Shortness of breath * * * * Physician Interpretation * * * * EXAMINATION: CHEST CT WITHOUT CONTRAST CLINICAL HISTORY: Shortness of breath Shortness of breath on exertion Technique: Spiral CT acquisition of the chest from the thoracic inlet to the upper abdomen without contrast. MQ: CTCWO_6 CT Radiation dose: Integrated Dose-length product (DLP) for this visit = 525 mGy*cm CT Dose Reduction Employed: Automated exposure control(AEC) and iterative recon Comparison: CT of the pulmonary veins dated 01/05/2021 RESULT: Limitations: None. Lines, tubes, and devices: None. Lung parenchyma and airways: The trachea and central airways appear patent and devoid of endobronchial lesion. There is a 12 mm calcified granuloma in the right upper lobe (3:94). A tiny calcified granuloma is also identified in the periphery of the left upper lobe (3:194). The lungs appear clear of focal consolidation, indeterminant nodule or mass. There is mild bronchiectasis in both lower lobes, the right middle lobe and the lingula, consistent with remote or chronic airways inflammation. In this distribution, sequelae of chronic aspiration pneumonitis must be considered. Linear opacities consistent with nonspecific atelectasis or scarring are scattered at the lung bases. Pleural space: No pleural effusion or focal pleural thickening is identified. There is no pneumothorax. 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 No supraclavicular lymphadenopathy is identified. No region of intrathoracic lymphadenopathy is identified, including the axillae. There are calcified mediastinal and right hilar lymph nodes consistent with remote granulomatous disease. There is a type III hiatal hernia. Surgical clips are noted at the EG junction. Heart, pericardium, and thoracic vessels: There is moderate, fusiform dilation of the ascending thoracic aorta which measures 45 x 42 mm in maximum transverse diameter. There are mild atherosclerotic calcifications of the thoracic aorta and the left coronary artery circulation. The main and central pulmonary arteries are within normal limits of diameter. There is mild left atrial enlargement. No pericardial effusion is identified. Bones and soft tissues: The vertebral body heights appear symmetric and well-maintained. There is a 4 mm sclerotic density of the T1 vertebral body (sagittal series, image 72), consistent with a bone island. No lytic or destructive osseous lesion is identified. The soft tissues of the chest wall appear unremarkable. Upper abdomen: Visualized portions of the upper abdomen disclose no acute process. A few calcified splenic granulomata are noted. Glass Vial Filler (topogram) images: No additional findings. DIVISION OF RADIOLOGY Provider, [facility] - 05/01/2021 * * *Final Report* * * DATE OF EXAM: May 01 2021 8:21AM [facility] 0541 - CT CHEST WO IVCON / PROCEDURE REASON: Shortness of breath * * * * Physician Interpretation * * * * EXAMINATION: CHEST CT WITHOUT CONTRAST CLINICAL HISTORY: Shortness of breath Shortness of breath on exertion Technique: Spiral CT acquisition of the chest from the thoracic inlet to the upper abdomen without contrast. MQ: CTCWO_6 CT Radiation dose: Integrated Dose-length product (DLP) for this visit = 525 mGy*cm CT Dose Reduction Employed: Automated exposure control(AEC) and iterative recon Comparison: CT of the pulmonary veins dated 01/05/2021 RESULT: Limitations: None. Lines, tubes, and devices: None. Lung parenchyma and airways: The trachea and central airways appear patent and devoid of endobronchial lesion. There is a 12 mm calcified granuloma in the right upper lobe (3:94). A tiny calcified granuloma is also identified in the periphery of the left upper lobe (3:194). The lungs appear clear of focal consolidation, indeterminant nodule or mass. There is mild bronchiectasis in both lower lobes, the right middle lobe and the lingula, consistent with remote or chronic airways inflammation. In this distribution, sequelae of chronic aspiration pneumonitis must be considered. Linear opacities consistent with nonspecific atelectasis or scarring are scattered at the lung bases. Pleural space: No pleural effusion or focal pleural thickening is identified. There is no pneumothorax. 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 No supraclavicular lymphadenopathy is identified. No region of intrathoracic lymphadenopathy is identified, including the axillae. There are calcified mediastinal and right hilar lymph nodes consistent with remote granulomatous disease. There is a type III hiatal hernia. Surgical clips are noted at the EG junction. Heart, pericardium, and thoracic vessels: There is moderate, fusiform dilation of the ascending thoracic aorta which measures 45 x 42 mm in maximum transverse diameter. There are mild atherosclerotic calcifications of the thoracic aorta and the left coronary artery circulation. The main and central pulmonary arteries are within normal limits of diameter. There is mild left atrial enlargement. No pericardial effusion is identified. Bones and soft tissues: The vertebral body heights appear symmetric and well-maintained. There is a 4 mm sclerotic density of the T1 vertebral body (sagittal series, image 72), consistent with a bone island. No lytic or destructive osseous lesion is identified. The soft tissues of the chest wall appear unremarkable. Upper abdomen: Visualized portions of the upper abdomen disclose no acute process. A few calcified splenic granulomata are noted. Glass Vial Filler (topogram) images: No additional findings. IMPRESSION IMPRESSION: 1. Mild bronchiectasis in both lower lobes, the right middle lobe and the lingula, consistent with remote or chronic airways inflammation. In this distribution, sequelae of chronic aspiration pneumonitis must be considered. A type III hiatal hernia is noted. 2. Fusiform dilation of the ascending thoracic aorta, stable in appearance since the exam dated 01/05/2021. Conference Center Coordinator: TRACI Transcribe Date/Time: May 01 2021 8:27A Dictated by : MASSIMO OAKES MD This examination was interpreted and the report reviewed and electronically signed by: MASSIMO OAKES MD on May 01 2021 8:49AM EST [facility] Radiology Study observation (narrative) [facility] CT Chest WO contrastOrdered By: Ccf Provider on 05-01-2021 [facility] Coding Summary.on 10-27-2020 Coding Summary. [id number] Gh0bWw+ PGhlYWQ+YC9CNEYnV68gnQHyvO4 NX0gGWV7UVJKRCZZHXG3GJJ0brJ C0ECjkX0YkgtJw AwfubEGeGM91RTm6INL7iWosOOx pjU9zaKFaM0i8TiYrTN20bZ36FP loLUQxPqY7HaCrtabzjVJz X9xsEcLmxBLsIck+PHRhYmxlIHd hGBHwJZgcWIVhOzUmgFkhJZ0sVy 9yZGVyLWNvbGxhcHNlOiBj k1goQQXsTIbxNW9jeKfbR9AqtDD 4NYXuv8e0Nw64dTU+EKJvJEG8jS fvFHoot659RmHfi1tiWXR2 eFAsCNpwUML3Q76hk3W2SXKrQZG pOEI8kOG7gV9yhRgmthutB3MapR TqIoJ7OPX8lCKnwQ9vyAyh jdetzS2fTfo+A18HFU6DMPVYKH0 IDfo1X0LmRgqcvTP+FM99EZMsQA 79zKIwwHKwl6xobZo9PbUh LSXoUDI4rByqILsut5UxMNTuN94 zwURjl2S5DTAzbSdfdMKvKzImzV F0oW1fNHrcoytwz4qinzyr Gjbsf5jjas81lB82L21oRQvdUUE aBMI7RIFpMMGkzJfckg9oeW1yAf 8+XGezc0mct4faqVa6VhIy QMZdqnAmePtzUZD7v9XkGk83L0N ujUagt6WoOyx3ha25jJYdw6M5xV J9YOjeASTolM3yPOjrWxU5 XOXtFaIntE84rLJuPKiwXd6mcGh jeDgqAT3yCEWxthduOHDwvT4sVJ VtwHQmoWdvJK1wLETooprv r862VrHtJLK6BEJirQEkQ5LrwR9 kKoXiEFLqBFArC8OftCCvEFptS7 57MFdbPdW6JVSghqWiA3Ma ECAypEcgRpL7y0Y4Lx8Ox1Ltagq fJFY0TTyxOEU6ZqR7XuCvAiP3I1 VkXxu5MBAnnWsuCY0jU4Ak OBTecjdppzcghVO8CHVrVEFowM3 3dPFgLNhaPl4eq7G6f540VPUoTI CsuH55Lb4hvLlcDDRowNNB xE9ihklhv1bqqqvpDvQmDOVgSFj 4YNb9QHNosMwlIyFvBKR8CwW6IN S9aNPddU5zuOtpkluhuE4r Oyc+Y88slV1hKNY0AYF4mepgACG rkmWoAN77HU40C8PuUzsbaJRjvJ U+WWZhevKnzHawBW9fWqCm c7ped3FxPUdsM5PfTPZrXIgzHbz 1ZHZePDE8uEW3lP9yWIScHTlmd7 G2nKC5J5YnmnKfei2ki0gp TATfQObaN93keSJdj2K9EXFdtEB 3SBLifRwvPrYobV32Guw+PGNvbG tvo0RvWjatu6btu2huaSs1 YeCiGQAxpyLfxTfjGZV5z4UiBp0 4L22mVGrvAJYsFWPuWYQrYLNyqX muku5nrR3aTw3+PGNvbCB3 lLV9nA2xYASgAjF2UAaeW003DrA xgMTwOkydi1khh1hcfCi0ZcVpGQ EzkpXjhHhgEHX3t1PtPg66 X54xJRumEIIfJALbKIPvITSvoNk ydc7bkE3iDq1+EH0zv2ongu55bW 48dHI+LXVhLKZ5cXpiFUxv RXMliM2yAXsxXwC7OTIlVdXdwG3 0hZNyJCzqJx3dhPiqeCcnUE4uHX Ydejugo819FjQjw7nlQAUr fHTcNBejBOY8G18qi2V0ICZqERL gLXU3cYE3dM8xnVrznxovuGZarS rwldPcxFezPXenYRkxY812 IHRvcDsnPlBhdGllbnQgTmFtZTo 7O9QgPup8VNHddQczYI3fmZHiMA ejPk3wcRwzfNxnZI2wWJQi ivcql779HbMmh2lyUZZbuZLnUXn vFRI3Z19nc8K9OADqBODuCPN9dL G1aI8qcMmvybfjkSQapRgb hiVwjRcdLKecPBwqU627MUPigXy nAuCbejAuORVnlVF0KF56DX85cI Fgt7L1yHX1G6JtKSHqowbd vduzgJX3WUJdMDHsqQ38Bp1olAg bCm3mPPJmCDO4FBNzsDYfL5FlmC 6pAiBlDJUdWYKxS8LdoQRy JPaaA120PKztPmR3TOAkqxDoT8U bHTEzvQydYtN0b1K6Td7XT7I7GD 02XS21jIPfw6A4sFA6M4Kv GLGotdagotkcxQX8CASvNMPrvP5 7Ft0zwQwmYw3pRPWpPHF1PLPzzF TpI9RftL3sZaSxYYLbXKCo Y3JkuPBdBYjmU168ITkySsT6MAH wnsWhA8WoQUUseDsfOxS8w3E7Zp 1SRMr6JC86PO73vWAzw9N0 rVX8Y7LhCZMhqggmynpaeCL8PPB eQXJvfV89Wa0gdGdsIy3tLMFpMZ O9GSUskPJcY9CmnP3bHbZp OBZzXEUmN9CysBQhJEqfL435ICh jGnT0CWXcotMvQ2DgRNWjaNflVy Y4k4U3Wu1XRMOfRK10QDX4 zHN7TK67TS45A8DdMgheeUZcvPZ +PHRhYmxlIHdpZHRoPScxMDAlJy XrpSytAH4sDn2uKOFnFQAt pDlrkBIxGzAji5ppMZApANuiOS8 zePsgA1MxwRF4SSGjh0o4Zt61F9 5kJ6MjfDI+GAWgqVH2iSG5 rP1dXhOxXgZ4ZJplF515NoRjlZF xVczvk3psm9qfgTa5XeJ5MYOyfu JuyQaiQNB6s4MwLm68N54g IHdpZHRoPSIxNSUiIHZhbGlnbj0 stR5mHc8+BOJsjQJ3uFP2yG1sWc OqLhC7VCrkX784PnFsaSEp Ovhej9nnn3eqyLa5KuOlVDBtsyE dwSjbUXC3l4JlEp18Z2TyuLqko9 YiKvi9st53zWBoa2C7vYZ5 B9ZyPXRcggefvUCtbSrtCV2eIEA wgfdxGFQtyC1oNKStZ0w6GvOlLs W9WHysM9ZsocX5KHLkuSTl CUdhRFI2V66yx5J3VOIoBSOwLUI 0jIB5iE9byDrsjdsccFMpkZvfxi QyfJeaOJvoOMjoM415KXJe kKjkQEKyqP1qUVKucHVfzBoiMK6 wNTBpbjsnPkFVRFJJVFNIIEpSLC BVNqOTWZVPM3rgWGegiJK+ YTXjWGS5xPvwROziCNLppB7aNCZ jT5d1CwZgBiF8DTozK4RlBAGjyc bdEp06nY3eAoZdKmE2VQtf X7UwwhA3TFBfxXKxHRgfIXN2Z53 xh8M0RSCzVDUuTXM8gUV1mK5smX lnbjogbGVmdDsgdmVydGlj FKlsGXrkY114ACQgvZbfUnTdXeX kYxQ1DVP8N3AxIyw2KNIedWfdHS 6zdKMqMKrnKh3ayHbrnGag MX8mRXOuhvwcFKSjcK9tLDPvdNH tnYxpEL7eMKCtqaodj425EjUdWC D3HPKlpOClB4CbvP4uAvEq PZWeCPNcV2EnmTMyPBmtZ562XMw bCeT0VTQhgeNmL6YpVIWhrObhWc Y1l9V5Ej45TeKIZQPianhl dGQ+GCZsOPD4yYxgUOemCSLevT7 kWGZkT6v4CaAiIrS2HLjlO5EqMO BaugdmXm70oW3cZoBvKvG5 GCukR0RnsgM3ZMIljSUiBCfkSHL 5E41xa2O2FXSuLUGhCTP8hYH7gF 1hbGlnbjogbGVmdDsgdmVy fLpmRXnzRMrwC091RFRryLsfQa6 hfQT3U3MaVkx1LKLgyEwsWY9tdU RbBHctSc7oeMifxJbxKA2b LPIaulysKCAyrV3sYZUxxEVffXv oSV4tIFBzvvdxe707HtCmTQP9DZ QfnPQkV1PcwY3zMlBhHKTq TVOsU2TakQXxFZzpE123KKqbTxL 9QXUvkhVdQ5NdAXTuwTdbJmG2n0 E0Vj3ZmFAvN5GnY0s9O7Xj PjwvdHI+PY51FEXlVC96aGLbzCL nx4awiKb9EwFkTEPwMKD4dBqpZN sfl6PlTFFfI71uxHLhb3Y6 TPCtlTfgyJAyFrWuzCR0rP2sHQl xglwiz2xnczryIqyvi3xmcy66oL 82Q18sSTxuMPOyFCBcNLYu JEIdyVepbe9rbZ6xHq1+PGNvbCB 7kCS5aN0uChYnXdP4HRwuK450Mh OgfJSpEghid4plk6jhsLs2 CiDjDRBhrkGizPicJTR9l7KiPo3 2P20pHMwzNGAeKYHmQRGdVIXztT xwtw0fpZ7fNf4+YS8ha2iy wj16kH77nVR+FXHfYUO5nWefDCi tFOAmjD6lFXzoZbK4GZJsNqUzfA 06yHSoNRmmDe4uuEcxgMfs XK0zRBOlgtzkv597WeBzz6ekYEM szESoSNklOWL8C91az6G8QBQzAQ BnJAY0qVH0mQ4tlEvylpnb oXBacRabcxCttIafMYzqNLezV50 4TEKhqXtkGmEueWVoO5ftjjSBQE 1lOjwvdGQ+XDWvQXH2hExn NFlmBZVziP0fHLSuG6x6JnShCzT 3LUjvG7UoqxB6LAHrvXBvTLUlbU HSrQ8awizig0haytfuXpPq JHMnAFx1EXf8ROHyfPwkCrJdCPI 6IaD9SYO6eFYdgH4kqAfcuginyI 9wOyc+RklOOjwvdGQ+PHRk KTJ4fTlpVHlhSAGpuL5bNEVpN7m 5YuEyHqR0VSkzM4DotoS8EVVydS BcWTXtfMKFaQ0njqeil8ky nqzjQeQgECCcKMk9ETn1ZRQnqYs lNaHrDIB8KuP0PFA6cCYftI5vsD xeizsadZ0sZxc+TVJOOjwv dGQ+IQMrTNQ2aNxdBFihMFTocK4 rNEDmT5p8PaBiXpT6OUsgB3Cmqx V1LHKjySKjCGFjyYWTaA1s fhwcu8hcyfauDmRjAYDeWTj4EWk 2FCOmxNzjRmVfYJR6HzQ8JXI5cJ StxQ8wiIsryubegJ6rWuo+ FQI6NXD8AH31MB89L0CsEwhcdXV ibGU+PHRhYmxlIHdpZHRoPScxMD ZqFdYprAqmRA9oPt9hEEBw LWNv (more content not included)... Normal [facility] Auto Diffon 10-18-2020 Basophils/100 WBC (Bld) 1.2 % Normal 0.0-2.0 [facility] Comment on above: Order Comment: Order Added by Discern Expert. Performed By: #### 2 257168, 1547990, [id number] ####[place] [address] [place] [address] Basophils/Leukocytes Auto (Bld) [Pure # fraction] 0.1 E9/L Normal 0.0-0.2 [facility] Comment on above: Order Comment: Order Added by Discern Expert. Performed By: #### 2 531592, 4917974, [id number] ####[facility] [address] [place] [address] Eosinophils/100 WBC (Bld) 1.8 % Normal 0.0-8.0 [facility] Comment on above: Order Comment: Order Added by Discern Expert. Performed By: #### 2 789449, 5315420, [id number] ####[address] [address] Eosinophils/Leukocyt es Auto (Bld) [Pure # fraction] 0.1 E9/L Normal 0.0-0.5 [facility] Comment on above: Order Comment: Order Added by Perry Expert. Performed By: #### 2 728484, 0046179, [id number] ####[address] [address] Lymphocytes/100 WBC (Bld) 27.6 % Normal 14.0-50.0 [facility] Comment on above: Order Comment: Order Added by Discern Expert. Performed By: #### 2 073640, 3254959, [id number] ####[address] [address] Lymphocytes/Leukocyt es Auto (Bld) [Pure # fraction] 2.1 E9/L Normal 1.0-4.0 [facility] Comment on above: Order Comment: Order Added by Discern Expert. Performed By: #### 2 619417, 9650602, [id number] ####[facility] [address] [place] [address] Monocytes/100 WBC (Bld) 9.6 % Normal 4.0-14.0 [facility] Comment on above: Order Comment: Order Added by Perry Expert. Performed By: #### 2 254502, 3846883, 93770355 ####[facility] [address] [place] [address] Monocytes/Leukocytes Auto (Bld) [Pure # fraction] 0.7 E9/L Normal 0.2-1.0 [facility] Comment on above: Order Comment: Order Added by Discern Expert. Performed By: #### 2 972769, 7873793, 54574410 ####[facility] [address] [place] [address] Neutrophils/100 WBC (Bld) 59.8 % Normal 36.0-75.0 [facility] Comment on above: Order Comment: Order Added by Discern Expert. Performed By: #### 2 367264, 5553546, 84623264 ####[facility] [address] [place] [address] Neutrophils/Leukocyt es Auto (Bld) [Pure # fraction] 4.6 E9/L Normal 2.0-7.5 [facility] Comment on above: Order Comment: Order Added by Discern Expert. Performed By: #### 2 227334, 6005727, 82041295 ####[facility] [address] [place] [address] BMPon 10-18-2020 Creatinine [Mass/Vol] 1.5 mg/dL High 0.5-1.3 [facility] Comment on above: Performed By: #### 2 453611, 12791207, 3780378 ####[facility] [address] [place] [address] Urea nitrogen [Mass/Vol] 29 mg/dL High 5-21 [facility] Comment on above: Performed By: #### 2 997199, 08143622, 4550244 ####[facility] [address] [place] [address] Urea nitrogen/Creatinine [Mass ratio] 19 No Units Normal 10-20 [facility] Comment on above: Performed By: #### 2 077865, 92518930, 8546599 ####[facility] [address] [place] [address] Anion gap [Moles/Vol] 11 mmol/L Normal 6-16 [facility] Comment on above: Performed By: #### 2 820964, 35692786, 3352348 ####[facility] [address] [place] [address] Calcium [Mass/Vol] 8.0 mg/dL Low 8.9-11.1 [facility] Comment on above: Performed By: #### 2 057338, 02572956, 2396792 ####[facility] [address] [place] [address] Chloride [Moles/Vol] 107 mmol/L Normal 101-111 [facility] Comment on above: Performed By: #### 2 923637, 06337948, 1553357 ####[facility] [address] [place] [address] CO2 [Moles/Vol] 24 mmol/L Normal 21-31 [facility] Comment on above: Performed By: #### 2 848275, 48475125, 3250017 ####[facility] [address] [place] [address] Glucose [Mass/Vol] 95 mg/dL Normal 55-199 [facility] Comment on above: Result Comment: If t his glucose result represents a fasting glucose, interpretation should refer to the following reference range: 55-99 mg/dL Performed By: #### 2 934313, 19496051, 2393031 ####[facility] [address] [place] [address] Potassium [Moles/Vol] 3.9 mmol/L Normal 3.5-5.3 [facility] Comment on above: Performed By: #### 2 488971, 33471271, 8380123 ####[facility] [address] [place] [address] Sodium [Moles/Vol] 138 mmol/L Normal 135-145 [facility] Comment on above: Performed By: #### 2 869862, 40664764, 2748889 ####[facility] [address] [place] [address] CBC w/ Auto Diffon 1 Erythrocyte distribution width (RBC) [Ratio] 15.7 % High 10.9-14.2 [facility] Comment on above: Performed By: #### 2 698124, 6547965, 93598020 ####[place] [address] [place] [address] Hematocrit (Bld) [Volume fraction] 39.9 % Normal 37.7-49.0 [facility] Comment on above: Performed By: #### 2 948733, 6288107, 60001116 ####[address] [address] Hemoglobin (Bld) [Mass/Vol] 13.3 g/dL Low 13.5-17.5 [facility] Comment on above: Performed By: #### 2 312173, 7994101, 49746188 ####[address] [address] MCH (RBC) [Entitic mass] 27.1 pg Normal 27.0-34.0 [facility] Comment on above: Performed By: #### 2 946804, 6797172, 30433832 ####[address] [address] MCHC (RBC) [Mass/Vol] 33.3 g/dL Normal 31.4-36.0 [facility] Comment on above: Performed By: #### 2 841747, 6229634, 68454544 ####[address] [address] MCV (RBC) [Entitic vol] 81.4 fL Normal 80.0-100.0 [facility] Comment on above: Performed By: #### 2 076635, 3327710, 44391893 ####[address] [address] Platelet mean volume (Bld) [Entitic vol] 9.2 fL Normal 6.4-10.8 [facility] Comment on above: Performed By: #### 2 151295, 2768368, 32726108 ####[place] [address] [place] [address] Platelets (Bld) [#/Vol] 223.0 E9/L Normal 150.0-500. 0 [facility] Comment on above: Performed By: #### 2 514648, 6839005, 10419591 ####[facility] [address] [place] [address] RBC (Bld) [#/Vol] 4.9 E12/L Normal 4.3-5.9 [facility] Comment on above: Performed By: #### 2 946809, 3705917, 71649639 ####[place] [address] [place] [address] WBC corrected for nucl RBC Auto (Bld) [#/Vol] 7.6 E9/L Normal 4.0-11.0 [facility] Comment on above: Performed By: #### 2 216906, 0460206, 96819037 ####[address] [address] Capillary Glucose POCon 09-21 Glucose [Mass/Vol] 118 mg/dL High 55-99 [facility] Comment on above: Result Comment: Erika heart RN/ Performed By: #### 2 [id number] ####[address] [address] Consent for Treatmenton 09-21 Consent for Treatment [id number]:127 Normal [facility] Discharge Instructionson Discharge Instructions [id number]:127 Normal [facility] ED Clinical Summaryon 2020 ED Clinical Summary (Inserted Image. Daya ble to display) [address] [address] ED Clinical Summary Person Information Name: YOLI ANTUNEZ JR [facility] Age: 65 Years : 1955 Sex: Male Language: Lao PCP: RADHA BURRIS MD Marital Status: Visit [...] 10/18/2020 10:31:18 10/18/2020 10:31:18 10/18/2020 10:31:18 ADDRESS: [address] [place] [id number] PHYS DOC NOTES: MEDICAL INFORMATION: Prescriptions Given: [...] days 10/21/2020 With: Address: When: RADHA BURRIS [facility] [place], [place] [id number] Business (1) In 3 days DIAGNOSIS: AF (paroxysmal atrial fibrillation) Normal [facility] ED Note-Physicianon 10-19-19 ED Note-Physician Basic [...] taken off his metoprolol at that time. Manager Servicing is Dr. Modi at [facility]. Troponin negative. Electrolytes unremarkable. CBC [...] normal sinus rhythm. I called the patient's fur glazer Dr. Joshi. We discussed the patient's history, presentation, diagnostic work-up, vitals. After this discussion he reports the patient is okay to follow-up with him as an outpatient. He will call the patient and schedule a pacemaker visit. I discussed the fur glazer recommendations with the patient. He would like discharge home. I did offer the patient admission for further work-up and treatment for his chest discomfort which he declined. He does not wish to stay for second troponin level. Return precautions were discussed. He was instructed follow-up with his primary care doctor and fur glazer. Patient expresses understanding of agreement this plan. [...] Disposit (more content not included)... Normal [facility] Comment on above: Result Comment: Elec [...] with: ? Electrocardiogram (ECG). ? Ambulatory cardiac rehab nurse. This device records your heartbeats for 24 [...] stroke (more content not included)... Normal [facility] ED Patient Summaryon 021 ED Patient Summary (Inserted Image. Daya ble to display) [place] [address] Patient Discharge Instructions Person Information Name: YOLI ANTUNEZ JR Age: 65 Years Arrival Date: 10/18/2020 07:56:12 Discharge Diagnosis: AF (paroxysmal atrial fibrillation) Primary Care Physician: RADHA BURRIS MD Provider Information Primary Provider: Oscar Sandoval DO [employer] Installer:None The exam and treatment you received in the Emergency Department were for an urgent problem and are not intended as complete care. It is important that you follow up with a doctor, nurse practitioner, or physician?s team assistant for ongoing care. If your symptoms [...] days 10/21/2020 With: Address: When: RADHA BURRIS [address] [place], [place] [id number] [employer] (1) In 3 days In the event that this physician does not participate in your insurance network, please consult with your insurance company to find a nearby participating provider. Patient Education Materials: Atrial Fibrillation A MESSAGE TO ALL PATIENTS REGARDING OPIOIDS PRESCRIPTION OPIOIDS: WHAT YOU NEED TO KNOW Prescription opioids can be used to help relieve yplhymos-hp-urboxe pain and are often prescribed following a [...] heal (more content not included)... Normal [facility] Magnesiumon 10-18-2020 Magnesium [Mass/Vol] 2.0 mg/dL Normal 1.3-2.4 [facility] Comment on above: Performed By: #### 2 925215, 17485134, 9299913 ####[facility] [address] [place] [address] Troponin 0 Hr.on 10-18-2020 Troponin I.cardiac [Mass/Vol] 3.00 pg/mL Low 15.90-38.4 0 [facility] Comment on above: Result Comment: The 95% CI (Confidence Interval) PPV (Positive Predictive Value) for myocardial infarction in females is 38 pg/mL, in males 51 pg/mL. The results should be used in conjunction with clinical conditions of myocardial infarction. (Access High Sensitivity Troponin I Instructions For Use, Bret Leonardo, November 2017) Performed By: #### 2 253299, 6453570, [id number] ####[facility] [address] [place] [address] XR Chest Single Viewon 10-18 XR Chest [...] Transcribed by: MALINI Technologist: JUWAN Normal [facility] eGFRon 10-18-2020 GFR/1.73 sq M.predicted among blacks MDRD (S/P/Bld) [Vol rate/Area] 57 mL/min/1.73 m2 Low >=59 [facility] Comment on above: Order Comment: Order added by Discern Expert. Result Comment: eGFR is race adjusted. AA=. Performed By: #### 2 260349, 17101434, 9833769 ####[facility] [address] [place] [address] GFR/1.73 sq M.predicted among non-blacks MDRD (S/P/Bld) [Vol rate/Area] 47 mL/min/1.73 m2 Low >=59 [facility] Comment on above: Order Comment: Order added by Discern Expert. Result Comment: Equipment Sales Specialist nikki kidney disease could be indicated at eGFR's of less than 60 mL/min/1.73m2. Kidney failure is indicated at less than 15 mL/min/1.73m2. Performed By: #### 2 126747, 49297490, 7697110 ####[facility] [address] [place] [address] Coding Summary.on 09-22-2020 Coding Summary. [id number] Gh0bWw+ PGhlYWQ+FE4RQEFfO62wlBHheH9 QG1eYJO2PINTSETVLIQ6BOT3ifA G9EBjzM7VnplVy QbubmTOeJK54YKu3EOF0dQsgJMh euY9itKDcQ5v2AkRcYQ17iR60TR ynVQUnAbP3HcHsuqkekEPm M8osBnMcuVYrYai+PHRhYmxlIHd yUBAaMGdkRAFmYeNqeFbcVJ5pYp 9yZGVyLWNvbGxhcHNlOiBj t1gxTAPdVWnkRV7wmWsmJ7JglVQ 5CWZdp3t0Gv03oQD+ZZFtCLI1jB ywEZisw204IfNdi4dtPHC9 hGZwOBwpDZO6J27ys5K4TRQaFJL lZJG4bQB0zG0hgFplsuhzS3ZkbN IlBcX9KOE1oMYbvP1dvTcs ddpwiV5oMdm+O26PGI8XEMMAWF5 TTus7W9RwCagtcVO+ZO42DYUcLV 83iKAxlHLto4bpaWl8WfTt FSUhTKW7wTtvEMkrm5VfHSFrA68 auAYvn5V6HMQhlHeusRTwLfWrqS Y7hJ9xUJnauaqrg9hafsxc Bmnoh0gsob17tY89I32xGJftTUK jNAG9FIIlIKZryDnabz9dsV8uCp 8+HVyrr1uwj2dchTa6WnFf LPKntsHmtIpdGWB5i1XqIj59P4D ttJvae9YiUbq7dw01mYHbj6Q2xU D4QZqsKJWpcK9pBBxjJuL7 ZWGwHeZhpY87zNPiDHffQu5oeTj smIijDK0pFDHuupruJBUixX3nYX KjmQDvjLzzWJ4rOUCvmdne c683SiAlXOK3XKNixWHkE9WezD6 jKyDqOYVbCSEiY3QopTEnRFmtU8 52YCxvRlU5PZZujyKsG8Rb DCTtzJqlGbN7u9I6Oq7Yh3Jcmby lXVV8UBvnOAW3LqGrNzLaAuM7O2 SjBtg2WFFfuFebCL6fV7Vk OXShabtyrompbCH4HRRhIPGzwJ5 1dPAcYTmoAs5rm8X6c565CHMzLD NteL13He0sdBbgZLZssNNH bT1bictkt3hhtiyiEqNwGXEjFVu 2CRu3VXDhfYtzPuFwQBN0XzE0DQ W8kMWyzK0sbJtsafcjuV8j Oyc+Z91xvI1pAKD8YOV5robhDWM qvnHnMA89XH57S3QaAqlujLGeoT U+CHKesyMmwDjoDF8iHwYb d8psh7FsCZsrV6LsRVKxXYleGjn 5TUVyZVG7bQK5dG3uKVMhCKtjz2 O6tPP4U7XiraYhrx3lv0qa BKIpSDuvX75nlWHyp9I5RRChwBV 6ZCIdoJynFxIxyA79Voc+PGNvbG ohi3ZaDqgfw9lrq1ryaWh1 KqJbYNJhkwXawEaeXEI7x0CpPw3 8N03dTAcaDWXzUSCtEYAfQHYfwQ rydk2gzJ1oXx5+PGNvbCB3 aZL8yR3vFKCxUvC8AHumT887GxH paULvDcxkt6zxx1ajvHk6LbXqBQ ZjsdYxwNmqFCL7m9MdIt39 C01kITfcHTOlTRGkBOAyCUCakPm cxp6xyD0zZs7+OE4if5ifye67qS 48dHI+STNcEXT0sCbzHEut BMNudL1eXOfmCxY1OJGaGrTgiJ7 0qZJlOLdxAz4mwYofnMxhDV0rXG Bdoxnya560ZpDut1wlIENg yHUsYAzcWDV8D40br9J6NMVtIJV cHXM5xPI9eU1heTqvatvlfLFioI udjpEqqUneALbqDEpvR752 IHRvcDsnPlBhdGllbnQgTmFtZTo 1C3BoXxu3KNOkwVoxFX2aoUNpZC seBy6kkOezvAziVJ4kKQUq rresr229LdYhk7khPIHzjTRgEDj xAXT6A66rb5D0BLBqKUFtQCZ9wG J9lF2evPkurmatyFTxkLfc ueLrqSsqANyqPDscS867TEIvrTf kLoEfxkOoKABbnQS4ZS21VX48bA Wtr2R7vLL6I2ApQBEztjjl anhxjIG9DLJlOWKdxR91Ne7ldOq xWu6fUSHaEED9ITLfbNZwT8UseH 5dFuAdDZCtOHAsH4ErcBXn GSjrT706YRaqWhT5JNNahyMuX5X jRSSofDewAjG8n2R0Vx1WU2K2SW 94IX45xKDzp9L3jSX5K8Nz FBJcxgrkgdpngMW3LANjUBNzpF4 6Cn6drEfmMw0fUVHlZGX7UXBhpE HoA2UhpO6lMjCnQKGnGTLy V9JygQCkPKdkN562WWafYqB6OSP ognAoI9EbTCLofRjkQeB6d2Z9Fr 1TMWt0FW14GJ35gCRrx9V8 kCC6Y2LrUSSsyxdvwgnouDJ9AXC oLUCmeF89An6dmMiyTm1oOBYgCH C2VCTtcFJkN6WbfW6iXcRq NXGtXCSxO5VliHTiBWuuB379EHj jBzN1HJVfrbSeC3HzRSTjtJgbGu A2g8Z2Xa1XXHOmTI59GEN8 hHW0RI82VB74D6LvJnuqnLTmiPZ +PHRhYmxlIHdpZHRoPScxMDAlJy KsoFiuQQ7nJw1eDZQuAVGd dNyiuKIxGcEvl7jtAESwWFhpBN1 wlUlqX4PgdKY3KUOpy6v7Uw75Z7 7fH1JjaTA+QINjcCD7rBS0 rJ9gBnPgLjC0CKhdK430KeFlsDJ aUuedo9fss7awjBs7HcI7FGUgap IflGfiNSA4k5AnIf09P44j IHdpZHRoPSIxNSUiIHZhbGlnbj0 ckF5gDh3+TWTadBR7dSG5iN0nLe NkWnA0KDjfN831QgOizZVm Klffv0gtn4yfvSn5EvKyZJNqecH ajWqcNZF2s3CoHt35N9IheUczg6 HbKud5ai89eTEck8P2bIM2 T9XnQCDprwmudOFybWotBV3fHZI odscwRKHjdE5qUASpZ9z8QoDgCv I4OHsiS7ZawdW7ALIkcURt FZipOLW7Y69dg3E8GZZlLRCjRXD 4qIV3qG6guNbjjzrnxDItwWhjwv AqcNntFAecPDqsV600BINp cMmoIMYvoL8zIDPukLMzoYflIF7 wNTBpbjsnPkFVRFJJVFNIIEpSLC FUCtEUXOICM7eiZZfmtYK+ EQTkQPQ0lHzaSKjuFCBlhT8pQEO dS5h7MxMdPiX4FMvsF5ZdRMRwhm wcKp76sA5lFkFvHfC9NKxi G0LidrY0NJHngGZiPQbpEIQ3M26 ak3B1SKRiCFCpQIM1uXQ5kR4rqZ lnbjogbGVmdDsgdmVydGlj BPnzXYypB989PLUbkCdaAqGsFzP pUmV1YIQ1U3EcGyv9LOWhrLbrPO 3goYQwEFedPk7zsUeliJhm BD9vYCXbroovXKNdiK8iEFBiqEM njDvxHS1dLOSxfjgsm189VpDhCT Z0ZNAvcRZsK6BdlL7cDkAn XCOlGNKcU1YghOFnPJmaQ760PTr yKfW5GJTdbcYkI0TuVYTrmAteTd E8k8U5Qv82QlRGBQCpulhd dGQ+NYAwUXS7pNauQTfiQWNmxZ6 zPGInB1e5HuJiAcD7HIuyP6EiLE YwobjtWj61mE0kNzBcQyI2 TRopU0WaocC6ZNLwgXLtMNgvMTV 4M41zz7Y5NQHdFZTqXWG2mZV7tM 1hbGlnbjogbGVmdDsgdmVy mKtcHUxfQNgkP116LUYgfJytZj4 dwOI8C2BfQao8MINuqNieYV0iiQ WeAVafFn4jgSejxEizXI4h GOVbngybTRSwhT0pSDGhnJNelKq mIT0eTBHuqnlht094YqKgEFX9OG JdfYKrJ5IvoG2iYrJsIWCx ZQHbV2UknGKuBJdrM949ECzrXcK 3LHSgipLbM8WoKMYpnXyiOlL3i5 V0Uy4UtCLrM9SxB7h2T3Le PjwvdHI+KE63EZWwVE41rMAvgKX dj3wycRs2YaFtLRVgZSM4rYfyVK hnl3TwJQQzO13hrFLcz3O6 VRPwcUbgpFEsUqIhfTR3iY8dCEf bmehsi4ewzhcsCtryb9tnwh01aS 41E60vOBbePOKnUGZoOKBj TLSfoLqjkm9rhO9lQz3+PGNvbCB 9iZG2zR4dYuKfIyI3OHpgF429Zt CtkXLsDfdsh2lax6rbwBa7 KzXwWXVnfiQgaTutVLR5h8YuEx4 5Y56lFIadGZJxBVUwQWLyGPVcpV jycu8kbC8eTh2+YI5po9rq yo01hH52vGJ+OMEnBFB1lFqiNMo tOESenO7iGIgnIhX0PCSvPnMtlE 09tPPyNNtsLs5vlTblaRsx PF2fCMNspcmsn566LyJxw1lpLTO ypFHxJUokLDL7O64ug8O2CVNxPH LwPYI7gVK3wW1wxIhgytqp rYMkpKbfoeGasKgjEEntHCvsH96 6OEXyqXzcCuBsyZFsI5dfywWDKJ 1lOjwvdGQ+CRPcWOU0oTeb TBlpVQWluL2kHKMeV0v7VwNgCiG 1CFqiY9BrniV4KTAqsAOfTYZdmE VGnY2gsnhwu6ietidzYmTo GYLwWPp7YOn6MFCqoSdlNgOxQPW 8DvX2SEU0hWLctJ9brBtuzbztoX 9wOyc+RklOOjwvdGQ+PHRk MYF6rYwaFLokISWqmA5bDZHxB4j 2ZsKvZxN7ULyiY6FarlL8BMMwdT DcVVFqoYXAqO3oxnyma9nd hasjMdQuVVWoLBt2SHr3EKLewGm cDeNhCLK2GsS3NXE3nJEefQ3qcC uftoazdL5dGgn+TVJOOjwv dGQ+FBKrOPF0nApbCCjcHDLseW0 fYLTbE2u3NrClWnS0JYvuY1Vroq P1VBIhyPTeAISzcYDBvY2g utlmu4qiguqfEjTtGMQnLFq0EMe 2VIOwyWkpCwVjRJB8NuB0EOK2pX KnyX3kwMzxdsthhJ6yVpr+ ICM0QBM6YF11LQ40M6XsGayidKK ibGU+PHRhYmxlIHdpZHRoPScxMD VqWgHgkYrrCD2vLc2gHHWb LWNv (more content not included)... Normal [facility] Auto Diffon 09-13-2020 Basophils/100 WBC (Bld) 0.6 % Normal 0.0-2.0 [facility] Comment on above: Order Comment: Order Added by Discern Expert. Performed By: #### 1 8827364, 9420486, 08678942, 6143916, 6552739 #### [facility] [address] [place] [address] Basophils/Leukocytes Auto (Bld) [Pure # fraction] 0.0 E9/L Normal 0.0-0.2 [facility] Comment on above: Order Comment: Order Added by Discern Expert. Performed By: #### 1 7713872, 9712540, 44514274, 7836304, 9530795 #### [facility] [address] [place] [address] Eosinophils/100 WBC (Bld) 2.9 % Normal 0.0-8.0 [facility] Comment on above: Order Comment: Order Added by Discern Expert. Performed By: #### 1 6663418, 3075024, 55413713, 5820567, 2314505 #### [facility] [address] [place] [address] Eosinophils/Leukocyt es Auto (Bld) [Pure # fraction] 0.2 E9/L Normal 0.0-0.5 [facility] Comment on above: Order Comment: Order Added by Discern Expert. Performed By: #### 1 7769782, 0860783, 50225626, 6400625, 2445152 #### [facility] [address] [place] [address] Lymphocytes/100 WBC (Bld) 27.2 % Normal 14.0-50.0 [facility] Comment on above: Order Comment: Order Added by Discern Expert. Performed By: #### 1 3582418, 6530039, 89132853, 6567682, 9571901 #### [facility] [address] [place] [address] Lymphocytes/Leukocyt es Auto (Bld) [Pure # fraction] 2.0 E9/L Normal 1.0-4.0 [facility] Comment on above: Order Comment: Order Added by Discern Expert. Performed By: #### 1 3042883, 9727761, 81401605, 1907407, 4780521 #### [facility] [address] [place] [address] Monocytes/100 WBC (Bld) 7.9 % Normal 4.0-14.0 [facility] Comment on above: Order Comment: Order Added by Perry Expert. Performed By: #### 1 0341943, 3198907, 53081779, 3631744, 3229008 #### [facility] [address] [place] [address] Monocytes/Leukocytes Auto (Bld) [Pure # fraction] 0.6 E9/L Normal 0.2-1.0 [facility] Comment on above: Order Comment: Order Added by Perry Expert. Performed By: #### 1 5913575, 4747965, 91220740, 5199066, 8310891 #### [facility] [address] [place] [address] Neutrophils/100 WBC (Bld) 61.4 % Normal 36.0-75.0 [facility] Comment on above: Order Comment: Order Added by Perry Expert. Performed By: #### 1 0863129, 5419808, 58643400, 4501376, 0455220 #### [facility] [address] [place] [address] Neutrophils/Leukocyt es Auto (Bld) [Pure # fraction] 4.5 E9/L Normal 2.0-7.5 [facility] Comment on above: Order Comment: Order Added by Perry Expert. Performed By: #### 1 7442313, 3874921, 90424037, 0666849, 2258662 #### [facility] [address] [place] [address] BMPon 09-13-2020 Anion gap [Moles/Vol] 13 mmol/L Normal 6-16 [facility] Comment on above: Performed By: #### 1 2235970, 9430359, 37501961, 7345717, 0427760 #### [facility] [address] [place] [address] Calcium [Mass/Vol] 7.0 mg/dL Abnormal 8.9-11.1 [facility] Comment on above: Result Comment: Crit ical Result verified by repeat analysis\Critical Result S_CA.0 Called to FABIÁN HUYNH AT ER by QUAN SWEET And Read Back For Confirmation at: 09/13/2020 09:41:51 Performed By: #### 1 2751139, 4516641, 36847247, 1250245, 4104564 #### [facility] [address] [place] [address] Chloride [Moles/Vol] 110 mmol/L Normal 101-111 [facility] Comment on above: Performed By: #### 1 6906721, 9605846, 92601924, 6572735, 8561360 #### [facility] [address] [place] [address] CO2 [Moles/Vol] 22 mmol/L Normal 21-31 [facility] Comment on above: Performed By: #### 1 3639275, 4526606, 92301112, 2726089, 3873204 #### [facility] [address] [place] [address] Creatinine [Mass/Vol] 1.5 mg/dL High 0.5-1.3 [facility] Comment on above: Performed By: #### 1 7977998, 4488939, 65251971, 2680531, 3645460 #### [facility] [address] [place] [address] Glucose [Mass/Vol] 111 mg/dL Normal 55-199 [facility] Comment on above: Result Comment: If t his glucose result represents a fasting glucose, interpretation should refer to the following reference range: 55-99 mg/dL Performed By: #### 1 9513845, 2759212, 26000735, 1577607, 8991979 #### [facility] [address] [place] [address] Potassium [Moles/Vol] 4.2 mmol/L Normal 3.5-5.3 [facility] Comment on above: Performed By: #### 1 1388886, 4347499, 95534041, 6531899, 3866748 #### [facility] [address] [place] [address] Sodium [Moles/Vol] 141 mmol/L Normal 135-145 [facility] Comment on above: Performed By: #### 1 7586409, 3027026, 83970912, 1759958, 8693914 #### [facility] [address] [place] [address] Urea nitrogen [Mass/Vol] 26 mg/dL High 5-21 [facility] Comment on above: Performed By: #### 1 7578076, 7745311, 88789193, 1042190, 0328712 #### [facility] [address] [place] [address] Urea nitrogen/Creatinine [Mass ratio] 17 No Units Normal 10-20 [facility] Comment on above: Performed By: #### 1 9614824, 1145808, 31805973, 8352891, 7285482 #### [facility] [address] [place] [address] CBC w/ Auto Diffon Erythrocyte distribution width (RBC) [Ratio] 15.3 % High 10.9-14.2 [facility] Comment on above: Performed By: #### 1 2960918, 1345285, 70413355, 2694329, 1182995 #### [facility] [address] [place] [address] Hematocrit (Bld) [Volume fraction] 34.6 % Low 37.7-49.0 [facility] Comment on above: Performed By: #### 1 6902317, 3551890, 43437991, 4058795, 8896523 #### [facility] [address] [place] [address] Hemoglobin (Bld) [Mass/Vol] 11.4 g/dL Low 13.5-17.5 [facility] Comment on above: Performed By: #### 1 0082842, 7745881, 50621770, 5603263, 1594262 #### [facility] [address] [place] [address] MCH (RBC) [Entitic mass] 26.9 pg Low 27.0-34.0 [facility] Comment on above: Performed By: #### 1 0701905, 5372057, 56174921, 5719800, 2211523 #### [facility] [address] [place] [address] MCHC (RBC) [Mass/Vol] 32.9 g/dL Normal 31.4-36.0 [facility] Comment on above: Performed By: #### 1 3510726, 8612542, 15461877, 6589501, 3082970 #### [facility] [address] [place] [address] MCV (RBC) [Entitic vol] 81.8 fL Normal 80.0-100.0 [facility] Comment on above: Performed By: #### 1 5180298, 1249140, 30793282, 5872844, 8505632 #### [facility] [address] [place] [address] Platelet mean volume (Bld) [Entitic vol] 9.4 fL Normal 6.4-10.8 [facility] Comment on above: Performed By: #### 1 1855205, 6727921, 57921693, 7965370, 9493957 #### [facility] [address] [place] [address] Platelets (Bld) [#/Vol] 237.0 E9/L Normal 150.0-500. 0 [facility] Comment on above: Performed By: #### 1 1772934, 2717524, 66813613, 8367237, 5363328 #### [facility] [address] [place] [address] RBC (Bld) [#/Vol] 4.2 E12/L Low 4.3-5.9 [facility] Comment on above: Performed By: #### 1 1491640, 2710656, 97885138, 2769436, 0142630 #### [facility] [address] [place] [address] WBC corrected for nucl RBC Auto (Bld) [#/Vol] 7.3 E9/L Normal 4.0-11.0 [facility] Comment on above: Performed By: #### 1 8839645, 4469370, 17717509, 9175258, 1624533 #### [facility] [address] [place] [address] CT Head or Brain w/o Contras ton [...] Tono Shirley MD Transcribed by: MALINI Technologist: Normal [facility] Capillary Glucose POCon 08-21 Glucose [Mass/Vol] 110 mg/dL High 55-99 [facility] Comment on above: Performed By: #### 2 25991688 ####[facility] [address] [place] [address] Consent To Leave AMAon 09-13 Consent To Leave AMA [id number]:127 Normal [facility] Consent for Treatmenton 08-21 Consent for Treatment [id number]:127 Normal [facility] Discharge Instructionson Discharge Instructions [id number]:127 Normal [facility] ED Clinical Summaryon 2020 ED Clinical Summary (Inserted Image. Daya ble to display) [address] [address] ED Clinical Summary Person Information Name: HARMONY JR YOLI Richelle Yazmin/[facility] Age: 65 Years : 1955 Sex: Male Language: Lao PCP: RADHA BURRIS MD Marital Status: Visit [...] 09/13/2020 10:52:16 09/13/2020 10:52:16 09/13/2020 10:52:16 ADDRESS: [address] [place] [phone] PHYS DOC NOTES: MEDICAL INFORMATION: Prescriptions Given: [...] Follow up: With: Address: When: Tono Castaneda [address] [place] [phone] Business (1) In 1 day 09/14/2020 With: Address: When: RADHA BURRIS [address] [place], [place] [phone] Business (1) In 3 days DIAGNOSIS: Angina pectoris; Cephalgia Normal [facility] ED Note-Nursingon 09-13-2020 ED Note-Nursing dc instructions revi ewed, pt verbalized understanding. Normal [facility] ED Note-Nursing Dr. Low spoke wi th pt., pt does not want to be admitted, AMA paperwork filled out. 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 Normal [facility] ED Note-Nursing Thomas from pharmacy in and speaking with pt about his med list, pt informed he is TBA Normal [facility] ED Note-Physicianon 09-14-19 ED Note-Physician Basic [...] had multiple ablations and sees cardiology in [place]. He denies any history of CAD but [...] me he will follow up with his fur glazer in the outpatient setting. The patient wishes [...] still (more content not included)... Normal [facility] Comment on above: Result Comment: Elec tronically Signed By: Bhavesh Low DO\.dionne\Date and Time Signed: 09/13/20 10:42 EDT ED Patient Education Noteon 09-13-2020 ED Patient Education Note Normal [facility] ED Patient Summaryon 021 ED Patient Summary (Inserted Image. Daya ble to display) [place] [address] Patient Discharge Instructions Person Information Name: YOLI ANTUNEZ JR Age: 65 Years Arrival Date: 09/13/2020 08:43:38 Discharge Diagnosis: Angina pectoris; Cephalgia Primary Care Physician: RADHA BURRIS MD Provider Information Primary Provider: Bhavesh Low DO [employer] Cover[employer] Installer:None The exam and treatment you received in the Emergency Department were for an urgent problem and are not intended as complete care. It is important that you follow up with a doctor, nurse practitioner, or physician?s team assistant for ongoing care. If your symptoms [...] Follow-up Instructions: With: Address: When: Tono Castaneda [address] [place], [place] [phone] [facility] (1) In 1 day 09/14/2020 With: Address: When: RADHA BURRIS [facility] [place], [place] [phone] [employer] (1) In 3 days In the event that this physician does not participate in your insurance network, please consult with your insurance company to find a nearby participating provider. Patient Education Materials: A MESSAGE TO ALL PATIENTS REGARDING OPIOIDS PRESCRIPTION OPIOIDS: WHAT YOU NEED TO KNOW Prescription opioids can be used to help relieve aantihna-mp-fzpofm pain and are often prescribed following a [...] be struggling with addiction, tell your health career center director (more content not included)... [facility] Monitor Recordon 09-13-2020 Monitor Record [id number]#[id number]:127 Normal [facility] Monitor Record [id number]#[id number]:127 Normal [facility] Troponin 0 Hr.on 09-13-2020 Troponin I.cardiac [Mass/Vol] 2.70 pg/mL Low 15.90-38.4 0 [facility] Comment on above: Result Comment: The 95% CI (Confidence Interval) PPV (Positive Predictive Value) for myocardial infarction in females is 38 pg/mL, in males 51 pg/mL. The results should be used in conjunction with clinical conditions of myocardial infarction. (Access High Sensitivity Troponin I Instructions For Use, [employer], November 2017) Performed By: #### 1 6773300, 2200500, 02374060, 4747207, 3329598 #### [facility] [address] [place] [address] XR Chest Single Viewon 09-13 XR Chest [...] Oren Ashby M.D. Transcribed by: MALINI Technologist: [facility] Normal [facility] eGFRon 09-13-2020 GFR/1.73 sq M.predicted among blacks MDRD (S/P/Bld) [Vol rate/Area] 57 mL/min/1.73 m2 Low >=59 [facility] Comment on above: Order Comment: Order added by Discern Expert. Result Comment: eGFR is race adjusted. AA=. Performed By: #### 1 7652172, 3322788, 19172053, 8120978, 3057537 #### [facility] [address] [place] [address] GFR/1.73 sq M.predicted among non-blacks MDRD (S/P/Bld) [Vol rate/Area] 47 mL/min/1.73 m2 Low >=59 [facility] Comment on above: Order Comment: Order added by Discern Expert. Result Comment: Equipment Sales Specialist nikki kidney disease could be indicated at eGFR's of less than 60 mL/min/1.73m2. Kidney failure is indicated at less than 15 mL/min/1.73m2. Performed By: #### 1 5678921, 7805936, 01550530, 9558600, 8450140 #### [facility] [address] [place] [address] Coding Summary.on 01-25-2020 Coding Summary. CODING DATE: 020 FINAL [facility] STATUS: Home (Routine DC) PAYOR: Medicare APC [...] Date Saved: 01/25/2020 02:44 pm Normal [facility] Discharge Instructionson Discharge Instructions [id number]:127 Normal [facility] Auto Diffon 01-19-2020 Basophils/100 WBC (Bld) 0.8 % Normal 0.0-2.0 [facility] Comment on above: Order Comment: Order Added by Discern Expert. Performed By: #### 2 819315, 40838713, 9124969, 75978294, 50487659, 6117733 ####[facility] [address] [place] [address] Basophils/Leukocytes Auto (Bld) [Pure # fraction] 0.1 E9/L Normal 0.0-0.2 [facility] Comment on above: Order Comment: Order Added by Discern Expert. Performed By: #### 2 278699, 27542020, 9591310, 19121655, 49952538, 6352348 ####[facility] [address] [place] [address] Eosinophils/100 WBC (Bld) 4.0 % Normal 0.0-8.0 [facility] Comment on above: Order Comment: Order Added by Discern Expert. Performed By: #### 2 992342, 33679398, 7691600, 60586521, 32405483, 4847219 ####[facility] [address] [place] [address] Eosinophils/Leukocyt es Auto (Bld) [Pure # fraction] 0.3 E9/L Normal 0.0-0.5 [facility] Comment on above: Order Comment: Order Added by Discern Expert. Performed By: #### 2 270953, 33694530, 0034065, 39190112, 24957903, 5354589 ####[facility] [address] [place] [address] Lymphocytes/100 WBC (Bld) 21.7 % Normal 14.0-50.0 [facility] Comment on above: Order Comment: Order Added by Discern Expert. Performed By: #### 2 945773, 19507298, 7965557, 63556276, 72349632, 1948563 ####[place] [address] [place] [address] Lymphocytes/Leukocyt es Auto (Bld) [Pure # fraction] 1.5 E9/L Normal 1.0-4.0 [facility] Comment on above: Order Comment: Order Added by Discern Expert. Performed By: #### 2 078481, 31901392, 4903142, 32173941, 04115355, 8123733 ####[address] [address] Monocytes/100 WBC (Bld) 7.2 % Normal 4.0-14.0 [facility] Comment on above: Order Comment: Order Added by Perry Expert. Performed By: #### 2 741695, 40308564, 5043055, 13743438, 10743769, 9900299 ####[address] [address] Monocytes/Leukocytes Auto (Bld) [Pure # fraction] 0.5 E9/L Normal 0.2-1.0 [facility] Comment on above: Order Comment: Order Added by Perry Expert. Performed By: #### 2 617166, 72162894, 8935093, 67455692, 99935083, 0971518 ####[address] [address] Neutrophils/100 WBC (Bld) 66.3 % Normal 36.0-75.0 [facility] Comment on above: Order Comment: Order Added by Perry Expert. Performed By: #### 2 707632, 41516453, 4492603, 13964707, 65297926, 3811192 ####[place] [address] [place] [address] Neutrophils/Leukocyt es Auto (Bld) [Pure # fraction] 4.7 E9/L Normal 2.0-7.5 [facility] Comment on above: Order Comment: Order Added by Perry Expert. Performed By: #### 2 863525, 33935954, 4002655, 68946148, 36949934, 1354081 ####[facility] [address] [place] [address] BMPon 01-19-2020 Creatinine [Mass/Vol] 1.3 mg/dL Normal 0.5-1.3 [facility] Comment on above: Performed By: #### 2 041892, 67012882, 4701157, 55102546, 89341337, 8119125 ####[facility] [address] [place] [address] Urea nitrogen [Mass/Vol] 21 mg/dL Normal 5-21 [facility] Comment on above: Performed By: #### 2 044780, 71063490, 4001315, 99874982, 40485778, 3114495 ####[facility] [address] [place] [address] Urea nitrogen/Creatinine [Mass ratio] 16 No Units Normal 10-20 [facility] Comment on above: Performed By: #### 2 125413, 31007788, 7504849, 26867532, 64700244, 3443079 ####[facility] [address] [place] [address] Anion gap [Moles/Vol] 13 mmol/L Normal 6-16 [facility] Comment on above: Performed By: #### 2 016647, 08141160, 4949292, 04104311, 19241753, 1080381 ####[facility] [address] [place] [address] Calcium [Mass/Vol] 7.2 mg/dL Low 8.9-11.1 [facility] Comment on above: Performed By: #### 2 288472, 05221400, 8940188, 65154673, 70809845, 8067714 ####[facility] [address] [place] [address] Chloride [Moles/Vol] 107 mmol/L Normal 101-111 [facility] Comment on above: Performed By: #### 2 202546, 23378420, 9995246, 64600921, 08713051, 0316136 ####[facility] [address] [place] [address] CO2 [Moles/Vol] 23 mmol/L Normal 21-31 [facility] Comment on above: Performed By: #### 2 695487, 62154521, 1321362, 45613567, 36239337, 6195535 ####[facility] [address] [place] [address] Glucose [Mass/Vol] 114 mg/dL Normal 55-199 [facility] Comment on above: Result Comment: If t his glucose result represents a fasting glucose, interpretation should refer to the following reference range: 55-99 mg/dL Performed By: #### 2 716211, 09576675, 0258846, 83569932, 24696813, 6194313 ####[facility] [address] [place] [address] Potassium [Moles/Vol] 3.3 mmol/L Low 3.5-5.3 [facility] Comment on above: Performed By: #### 2 640673, 38862412, 2210621, 03789091, 86240263, 2983576 ####[facility] [address] [place] [address] Sodium [Moles/Vol] 140 mmol/L Normal 135-145 [facility] Comment on above: Performed By: #### 2 207018, 49453658, 9492426, 82022200, 43176369, 6793963 ####[facility] [address] [place] [address] CBC w/ Auto Diffon 0 Erythrocyte distribution width (RBC) [Ratio] 14.6 % High 10.9-14.2 [facility] Comment on above: Performed By: #### 2 252867, 44203106, 6896787, 15557317, 04104681, 9049477 #### [facility] [address] [place] [address] Hematocrit (Bld) [Volume fraction] 38.2 % Normal 37.7-49.0 [facility] Comment on above: Performed By: #### 2 881469, 76270246, 5966606, 09576902, 82623129, 4568281 #### [facility] [address] [place] [address] Hemoglobin (Bld) [Mass/Vol] 12.7 g/dL Low 13.5-17.5 [facility] Comment on above: Performed By: #### 2 606834, 30287118, 7725294, 86969527, 04082816, 1525978 #### [facility] [address] [place] [address] MCH (RBC) [Entitic mass] 27.2 pg Normal 27.0-34.0 [facility] Comment on above: Performed By: #### 2 263596, 59672145, 8249071, 37625089, 27798623, 7503377 #### [facility] [address] [place] [address] MCHC (RBC) [Mass/Vol] 33.2 g/dL Normal 31.4-36.0 [facility] Comment on above: Performed By: #### 2 077276, 60334193, 1480328, 96712963, 72940350, 7307501 #### [facility] [address] [place] [address] MCV (RBC) [Entitic vol] 82.1 fL Normal 80.0-100.0 [facility] Comment on above: Performed By: #### 2 093525, 91616105, 0119291, 90861027, 95592849, 3000672 #### [facility] [address] [place] [address] Platelet mean volume (Bld) [Entitic vol] 8.2 fL Normal 6.4-10.8 [facility] Comment on above: Performed By: #### 2 180884, 46918065, 6292966, 32315380, 57338649, 8407490 #### [facility] [address] [place] [address] Platelets (Bld) [#/Vol] 226.0 E9/L Normal 150.0-500. 0 [facility] Comment on above: Performed By: #### 2 884485, 20212092, 1835517, 43169358, 82716623, 5263110 #### [facility] [address] [place] [address] RBC (Bld) [#/Vol] 4.7 E12/L Normal 4.3-5.9 [facility] Comment on above: Performed By: #### 2 288567, 72855988, 7542554, 47388810, 41667135, 5357362 #### [facility] [address] [place] [address] WBC corrected for nucl RBC Auto (Bld) [#/Vol] 7.1 E9/L Normal 4.0-11.0 [facility] Comment on above: Performed By: #### 2 314077, 36896048, 4005292, 38548396, 37551258, 3900489 #### [facility] [address] [place] [address] CTA Headon 01-19-2020 CTA Head Exam Date/Time: [...] Contrast amount in ml's: 70 Normal [facility] CTA Neckon 01-19-2020 CTA Neck Exam [...] Contrast amount in ml's: 70 Normal [facility] Capillary Glucose POCon 12-22 Glucose [Mass/Vol] 111 mg/dL High 55-99 [facility] Comment on above: Result Comment: Erika heart RN/MD Performed By: #### 2 08654407 ####[facility] [address] [place] [address] Consent for Treatmenton 12-22 Consent for Treatment [id number]:127 Normal [facility] ED Clinical Summaryon 2019 ED Clinical Summary (Inserted Image. Daya ble to display) [address] [address] ED Clinical Summary Person Information Name: YOLI ANTUNEZ JR Yazmin/[facility] Age: 64 Years : 1955 Sex: Male Language: Lao PCP: RADHA BURRIS MD Marital Status: Visit [...] 01/19/2020 17:29:31 01/19/2020 17:29:31 01/19/2020 17:29:31 ADDRESS: [address] [place] [id number] PHYS DOC NOTES: MEDICAL INFORMATION: Prescriptions Given: [...] Follow up: With: Address: When: Earle Jon [address] [place] [id number] [facility] () In 3 days 01/22/2020 With: Address: When: Follow-up with your neurologist as directed at [facility] In 3 days 01/22/2020 DIAGNOSIS: Abnormal cardiac enzyme level; Aphasia; Chest pain Normal [facility] ED Note-Physicianon 01-19-20 ED Note-Physician Basic [...] . He was undergoing a procedure at [facility] for ablation for his atrial fibrillation. Patient [...] He was called by the neurologist at [facility] 1 hour prior to arrival and was [...] she cannot recall. He has been taking aokk-kdj-eunhxnu medications for his headache as well and [...] me he just underwent full work-up at [facility] including negative MRI. He is not exactly sure why the neurologist sent the patient here today for CT angiogram but it is negative. He did request copies of the imaging and I did provide him with this on disc and we sent them electronically to [facility] as well. He is discharged home with instructions to return to the ER for symptoms should change worsen or recur or if he changes his mind to be admitted for observation. Assessment/Plan Abnormal cardiac enzyme level (R74.8: Abnormal levels of other serum enzymes) Aphasia (R47.01: Aphasia) Chest pain (R07.9: Chest pain, unspecified) Orders: Automated Diff Basic Metabolic Panel CBC w/ Auto Diff [place] Stroke Scale Communication Order Physician to Nursing [...] Jon In 3 days 01/22/2020 EDT [address] [place] [address]- Business (1) Additional Instructions: (more content not included)... Normal [facility] Comment on above: Result Comment: Elec [...] Document Reviewed: 11/11/2008 ExitCare? Patient Information ?2015 Sapiens. This information is not intended to replace [...] t (more content not included)... Normal [facility] ED Patient Summaryon 020 ED Patient Summary (Inserted Image. Daya ble to display) [address] [address] Patient Discharge Instructions Person Information Name: YOLI ANTUNEZ JR Age: 64 Years [facility]: [id number] Arrival Date: 01/19/2020 15:06:59 Discharge Diagnosis: Abnormal cardiac enzyme level; Aphasia; Chest pain Primary Care Physician: RADHA BURRIS MD Provider Information Primary Provider: Bhavesh Low DO Advanced Commercial Floor Covering Installer:None The exam and treatment you received in the Emergency Department were for an urgent problem and are not intended as complete care. It is important that you follow up with a doctor, nurse practitioner, or physician?s team assistant for ongoing care. If your symptoms [...] Follow-up Instructions: With: Address: When: Earle Jon [address] [place] [id number] [facility] (1) In 3 days 01/22/2020 With: Address: When: Follow-up with your neurologist as directed at [facility] In 3 days 01/22/2020 In the event that this physician does not participate in your insurance network, please consult with your insurance company to find a nearby participating provider. Patient Education Materials: Chest Pain (Nonspecific); Aphasia A MESSAGE TO ALL PATIENTS REGARDING OPIOIDS PRESCRIPTION OPIOIDS: WHAT YOU NEED TO KNOW Prescription opioids can be used to help relieve frckttnp-ha-qqgjkc pain and are often prescribed following a [...] addiction (more content not included)... Normal [facility] PT & PTTon 01-19-2020 aPTT Coag (PPP) [Time] 36.5 second(s) Normal 25.1-36.5 [facility] Comment on above: Result Comment: Hepa rin therapeutic range (represented by Anti-Factor Xa activity of 0.2 - 0.4 U/mL) corresponds to PTT of 56.6 - 109.0 sec. Performed By: #### 2 [id number], [id number], [id number], [id number], [id number] ####[facility] [address] [place] [address] INR Coag (PPP) [Relative time] 1.1 {INR} Invalid Interpretation Code [facility] Comment on above: Result Comment: INR results are specifically intended to assess patients stabilized on long-term Anticoagulation therapy suggested INR?s ?Less Intensive Anticoagulation? 2.0 ? 3.0 Conventional Range 3.0 ? 4.5 Performed By: #### 2 [id number], [id number], [id number], [id number] ####[facility] [address] [place] [address] PT Coag (PPP) [Time] 13.1 second(s) High 10.2-12.9 [facility] Comment on above: Performed By: #### 2 [id number], [id number], [id number], [id number], [id number], [id number] ####[facility] [address] [place] [address] Troponin 0 Hr.on 01-19-2020 Troponin I.cardiac [Mass/Vol] 126.30 pg/mL Abnormal 15.90-38.4 0 [facility] Comment on above: Result Comment: Crit [...] Sensitivity Troponin I Instructions For Use, Bret [place], November 2017) Performed By: #### 2 [id number], [id number], [id number], [id number], [id number], [id number] ####[facility] [address] [place] [address] XR Chest Single Viewon 01-18 XR Chest [...] Torres M.D. Transcribed by: MALINI Technologist: BRYANT Van [facility] eGFRon 01-19-2020 GFR/1.73 sq M.predicted among blacks MDRD (S/P/Bld) [Vol rate/Area] mL/min/{1.73_m2} Normal >=59 [facility] Comment on above: Order Comment: Order added by Discern Expert. Result Comment: eGFR is race adjusted. AA=. Performed By: #### 2 [id number], [id number], [id number], [id number], [id number], [id number] ####[facility] [address] [place] [address] GFR/1.73 sq M.predicted among non-blacks MDRD (S/P/Bld) [Vol rate/Area] 55 mL/min/1.73 m2 Low >=59 [facility] Comment on above: Order Comment: Order added by Discern Expert. Result Comment: Equipment Sales Specialist nkiki kidney disease could be indicated at eGFR's of less than 60 mL/min/1.73m2. Kidney failure is indicated at less than 15 mL/min/1.73m2. Performed By: #### 2 [id number], [id number], [id number], [id number], [id number] ####[facility] [address] [place] [address] Creatinineon 04-28-2018 Creatinine mass conc 1.47 mg/dL High 0.50-1.30 [facility] Comment on above: Performed By: #### 1 [id number] ####[facility] [address] [place] [address] GFR/1.73 sq M.predicted MDRD vol rate/area 48 mL/min/{1.73_m2} Normal [facility] Comment on above: Result Comment: Inte rpretation for Chronic Kidney Disease:Stages 1&2 >60 Healthy or potential kidney damage.Mild decrease of GFR.Stage 3 30-59 Moderate decrease of GFR.Stage 4 15-29 Severe decrease of GFR.Stage 5 <15 Kidney failure or on dialysis. Performed By: #### 1 [id number] ####[facility] [address] [place] [address] Electrolyte Panelon 04-28-19 19 Anion gap 3 molar conc 10 mmol/L Normal 10-20 [facility] Comment on above: Performed By: #### 1 [id number] ####[facility] [address] [place] [address] Chloride molar conc 110 mmol/L High 98-107 [facility] Comment on above: Performed By: #### 1 [id number] ####[facility] [address] [place] [address] HCO3 molar conc (Bld) 25 mmol/L Normal 21-32 [facility] Comment on above: Performed By: #### 1 [id number] ####[facility] [address] [place] [address] Potassium molar conc 4.2 mmol/L Normal 3.5-5.1 [facility] Comment on above: Performed By: #### 1 [id number] ####[facility] [address] [place] [address] Sodium molar conc 141 mmol/L Normal 136-145 [facility] Comment on above: Performed By: #### 1 [id number] ####[facility] [address] [place] [address] Urea Nitrogenon 04-28-2018 Urea nitrogen mass conc 32 mg/dL High 6-23 [facility] Comment on above: Performed By: #### 1 [id number] ####[facility] [address] [place] [address] Vital Signs Date Time Vital Sign Value Performing Clinician Facility 04-16-2023 11:58-0500 Diastolic blood pressure 77 mm[Hg] MD Radha Burris Work Phone: [facility] 04-16-2023 11:58-0500 Heart rate 60 /min MD Radha Burris Work Phone: [facility] 04-16-2023 11:58-0500 Respiratory rate 16 /min MD Radha Burris Work Phone: [facility] 04-16-2023 11:58-0500 SaO2% (BldA) [Mass fraction] 100 % MD Radha Burris Work Phone: [facility] 04-16-2023 11:58-0500 Systolic blood pressure 122 mm[Hg] MD Radha Burris Work Phone: [facility] 04-16-2023 09:35-0500 Body height 198.12 cm MD Radha Burris Work Phone: [facility] 04-16-2023 09:35-0500 Body weight 111.13 kg MD Radha Burris Work Phone: [facility] 03-20-2023 14:00-0500 Body height Imad Asaad Other Track Other 03-20-2023 14:00-0500 Body height 195.58 cm MD Radha Burris Work Phone: [facility] 03-20-2023 14:00-0500 Body mass index (BMI) [Ratio] 30.34 kg/m2 Imad Asaad Other Track Other 03-20-2023 14:00-0500 Body weight 116.08 kg Imad Asaad Other [facility] [employer] Other 03-20-2023 14:00-0500 Body weight 116.07 kg MD Radha Burris Work Phone: [facility] 03-20-2023 14:00-0500 Diastolic blood pressure 70 mm[Hg] Imad Asaad Other [facility] 03-20-2023 14:00-0500 Systolic blood pressure 120 mm[Hg] Imad Asaad Other [facility] 01-31-2023 14:51-0400 Body mass index (BMI) [Ratio] 28.89 kg/m2 Yossi Chen MD Work Phone: [facility] 01-31-2023 14:51-0400 Body weight 113.4 kg Yossi Chen MD Work Phone: [facility] 12-31-2022 15:12-0400 Body height 198.1 cm Sarbjit Dobrowski LINUX ARCHITECT.STARTING GATE DRIVER Work Phone: [facility] 12-31-2022 15:12-0400 Body weight 114.76 kg Sarbjit Dobrowski LINUX ARCHITECT.STARTING GATE DRIVER Work Phone: [facility] 12-31-2022 15:12-0400 Diastolic blood pressure 77 mm[Hg] Sarbjit Dobrowski LINUX ARCHITECT.STARTING GATE DRIVER Work Phone: [facility] 12-31-2022 15:12-0400 Heart rate 69 /min Sarbjit Dobrowski LINUX ARCHITECT.STARTING GATE DRIVER Work Phone: [facility] 12-31-2022 15:12-0400 Systolic blood pressure 123 mm[Hg] Sarbjit Dobrowski LINUX ARCHITECT.STARTING GATE DRIVER Work Phone: [facility] 11-29-2022 13:43-0400 Body height 198.12 cm Radha Burris Work Phone: [facility] DO Work Phone: 11-29-2022 13:43-0400 Body mass index (BMI) [Ratio] 29.24 kg/m2 Radha Burris Work Phone: [facility] DO Work Phone: 11-29-2022 13:43-0400 Body surface area Derived from formula 2.49 m2 Radha Burris Work Phone: [facility] DO Work Phone: 11-29-2022 13:43-0400 Body weight 114.76 kg Radha Burris Work Phone: [facility] DO Work Phone: 11-12-2022 14:23-0400 Body height 198.12 cm Radha Burris Work Phone: [facility] DO Work Phone: 11-12-2022 14:23-0400 Body mass index (BMI) [Ratio] 29.82 kg/m2 Radha Burris Work Phone: [facility] DO Work Phone: 11-12-2022 14:23-0400 Body surface area Derived from formula 2.52 m2 Radha Burris Work Phone: [facility] DO Work Phone: 11-12-2022 14:23-0400 Body weight 117.03 kg Radha Burris Work Phone: [facility] DO Work Phone: 11-12-2022 14:23-0400 Diastolic blood pressure 65 mm[Hg] Radha Burris Work Phone: [facility] DO Work Phone: 11-12-2022 14:23-0400 Heart rate 77 /min Radha Burris Work Phone: [facility] DO Work Phone: 11-12-2022 14:23-0400 Systolic blood pressure 104 mm[Hg] Radha Burris Work Phone: [facility] DO Work Phone: 10-18-2022 14:32-0400 Diastolic blood pressure 61 mm[Hg] Infusion 3 Work Phone: [facility] 10-18-2022 14:32-0400 Heart rate 68 /min Infusion 3 Work Phone: [facility] 10-18-2022 14:32-0400 Respiratory rate 14 /min Infusion 3 Work Phone: [facility] 10-18-2022 14:32-0400 Systolic blood pressure 111 mm[Hg] Infusion 3 Work Phone: [facility] 08-30-2022 07:01-0400 Body height 184.4 cm Beth Diego MD Work Phone: [facility] 08-30-2022 07:01-0400 Body mass index (BMI) [Ratio] 33.41 kg/m2 Beth Diego MD Work Phone: [facility] 08-30-2022 07:01-0400 Body weight 113.6 kg Beth Diego MD Work Phone: [facility] 08-17-2022 10:33-0400 Body height 198.12 cm Radha Burris Work Phone: CB-Glutjrsyjsgxlx-Zn rma MAC1 302 Work Phone: 08-17-2022 10:33-0400 Body mass index (BMI) [Ratio] 29.99 kg/m2 Radha Burris Work Phone: TT-Rdgusgrqouklou-Rd rma MAC1 [address] Work Phone: 08-17-2022 10:33-0400 Body surface area Derived from formula 2.52 m2 Radha Burris Work Phone: WY-Blrhkcjyajdcgo-Hh rma MAC1 [address] Work Phone: 08-17-2022 10:33-0400 Body temperature 97.8 [degF] Radha Burris Work Phone: TD-Fehbdbpcdhnaat-Xz rma MAC1 [address] Work Phone: 08-17-2022 10:33-0400 Body weight 117.71 kg Radha Burris Work Phone: HL-Ydfuohkgewmwfn-Es rma MAC1 [address] Work Phone: 08-17-2022 10:33-0400 Diastolic blood pressure 74 mm[Hg] Radha Burris Work Phone: GE-Mwevhvaqoliwyx-Gh rma MAC1 [address] Work Phone: 08-17-2022 10:33-0400 Heart rate 82 /min Radha Burris Work Phone: NI-Fdafgsffnqocxa-Ws rma MAC1 [address] Work Phone: 08-17-2022 10:33-0400 Respiratory rate 16 /min Radha Burris Work Phone: EM-Qryltilppqvpzq-Ox rma MAC1 [address] Work Phone: 08-17-2022 10:33-0400 SaO2% (BldA) [Mass fraction] 98 % Radha Burris Work Phone: UE-Ixkhvrcoekwnan-Kg rma MAC1 302 Work Phone: 08-17-2022 10:33-0400 Systolic blood pressure 111 mm[Hg] Radha Burirs Work Phone: NE-Olwvjdroxalrus-Zm rma MAC1 [address] Work Phone: 07-26-2022 14:25-0400 Diastolic blood pressure 77 mm[Hg] Infusion 3 Work Phone: [facility] 07-26-2022 14:25-0400 Heart rate 88 /min Infusion 3 Work Phone: [facility] 07-26-2022 14:25-0400 Systolic blood pressure 120 mm[Hg] Infusion 3 Work Phone: [facility] 07-17-2022 08:57-0400 Body height 198.12 cm Radha Burris Work Phone: [facility] Work Phone: 07-17-2022 08:57-0400 Body mass index (BMI) [Ratio] 29.08 kg/m2 Radha Burris Work Phone: YP[facility]hhp[facility] 4100 Work Phone: 07-17-2022 08:57-0400 Body surface area Derived from formula 2.49 m2 Radha Burris Work Phone: XK[facility]hdkedq[facility] 4100 Work Phone: 07-17-2022 08:57-0400 Body temperature 98.8 [degF] Radha Burris Work Phone: TP[facility]ss[facility] 4100 Work Phone: 07-17-2022 08:57-0400 Body weight 114.13 kg Radha Burris Work Phone: JR[facility]iewzasxlxhwy[facility] 4109 Work Phone: 01-05-2022 14:08-0400 Respiratory rate 16 /min John Saul MD Work Phone: [facility] [employer] 01-05-2022 09:00-0400 Diastolic blood pressure 80 mm[Hg] John Saul MD Work Phone: [facility] [employer] 01-05-2022 09:00-0400 Heart rate 63 /min John Saul MD Work Phone: [employer] 01-05-2022 09:00-0400 Systolic blood pressure 143 mm[Hg] John Saul MD Work Phone: [facility] [employer] 01-05-2022 07:45-0400 Body temperature 97.9 [degF] John Saul MD Work Phone: [facility] [employer] 01-05-2022 07:45-0400 SaO2% (BldA) [Mass fraction] 98 % John Saul MD Work Phone: [facility] [employer] 01-03-2022 06:00-0400 Body mass index (BMI) [Ratio] 29.47 kg/m2 John Saul MD Work Phone: [employer] 01-03-2022 06:00-0400 Body weight 115.67 kg John Saul MD Work Phone: [employer] 12-31-2021 23:43-0400 Body height 198.1 cm John Saul MD Work Phone: [employer] 10-02-2021 16:00-0400 Body height Thor Corbettky Other Track Other 10-02-2021 16:00-0400 Body mass index (BMI) [Ratio] 30.71 kg/m2 Thor Fox Other Track Other 10-02-2021 16:00-0400 Body weight 117.48 kg Thor Fox Other Track Other 10-02-2021 16:00-0400 Diastolic blood pressure 72 mm[Hg] Thor Fox Other Track Other 10-02-2021 16:00-0400 SaO2% (BldA) [Mass fraction] 97 % Thor Fox Other Track Other 10-02-2021 16:00-0400 Systolic blood pressure 118 mm[Hg] Thor Fox Other Track Other 08-30-2021 10:15-0400 Body height Lashawn Estrada Other Track Other 08-30-2021 10:15-0400 Body mass index (BMI) [Ratio] 30.76 kg/m2 Lashawn Estrada Other Track Other 08-30-2021 10:15-0400 Body weight 117.66 kg Lashawn Estrada Other Track Other 08-30-2021 10:15-0400 Diastolic blood pressure 64 mm[Hg] Lashawn Estrada Other Track Other 08-30-2021 10:15-0400 Respiratory rate 18 /min Lashawn Estrada Other Track Other 08-30-2021 10:15-0400 SaO2% (BldA) [Mass fraction] 96 % Lashawn Estrada Other Track Other 08-30-2021 10:15-0400 Systolic blood pressure 116 mm[Hg] Lashawn Estrada Other Track Other 08-03-2021 16:45-0400 Body height Thor Fox Other Track Other 08-03-2021 16:45-0400 Body mass index (BMI) [Ratio] 30.73 kg/m2 Thor Corbettky Other Track Other 08-03-2021 16:45-0400 Body weight 117.57 kg Thor Ruddy Other Track Other 08-03-2021 16:45-0400 Diastolic blood pressure 80 mm[Hg] Thor Ruddy Other Track Other 08-03-2021 16:45-0400 SaO2% (BldA) [Mass fraction] 98 % Thor Corbettky Other Track Other 08-03-2021 16:45-0400 Systolic blood pressure 122 mm[Hg] Thor Fox Other Track Other 03-11-2020 13:30-0500 Body Temperature 98.1 [degF] [address] [place] 03-11-2020 13:30-0500 BP Diastolic 75 mm[Hg] [facility] [place] [facility] [place] 03-11-2020 13:30-0500 BP Systolic 126 mm[Hg] [address] [place] , [place] 03-11-2020 13:30-0500 Pulse (Heart Rate) 69 /min Malz 3 [place], [place] 03-11-2020 13:30-0500 Respiratory Rate 18 /min Rupinder 3 [place], [place] 03-11-2020 09:45-0500 Pulse Oximetry 99 % Rupinder 3 [place], [place] 03-03-2019 13:16-0500 BMI (Body Mass Index) 28 kg/m2 Chris Luong W[place]-Alzzlyjzs-Fbkkgbb ld 201 Work Phone: 03-03-2019 13:16-0500 Body weight 109.88 kg Chris Luong OR-Cwutgwudi-Azy ffie ld 201 Work Phone: 03-03-2019 13:16-0500 BP Diastolic 80 mm[Hg] Chris Luong SL-Mvndvidfb-Gmn ffie ld 201 Work Phone: Comment on above: Location: LUE; Position: Sitting 03-03-2019 13:16-0500 BP Systolic 118 mm[Hg] Chris Luong CT-Bhbpirhcg-Dsw ffie ld 201 Work Phone: Comment on above: Location: LUE; Position: Sitting 03-03-2019 13:16-0500 BSA (Body Surface Area) 2.45 m2 Chris Luong LG-Zbpttjhmt-Qqybpnq ld 201 Work Phone: 03-03-2019 13:16-0500 Height 198.12 cm Chris Luong EV-Phblexftv-Clv ffie ld 201 Work Phone: 03-03-2019 13:16-0500 Pulse (Heart Rate) 81 /min Chris Luong MP-Neurology- [address]ff[address] Work Phone: 03-03-2019 13:16-0500 Pulse Oximetry 96 % Chris Luong [place]-Uqjnwjbdd-Bhv ffie ld 201 Work Phone: Comment on above: Source: RA Encounters Encounter Date Encounter Type Care Provider Facility Start: 01-20-2024 End: 01-20-2024 ambulatory MATIAS JUAREZ Not Available Start: 01-13-2024 End: 01-13-2024 ambulatory SHIVANI ADAMS Not Available Start: 01-06-2024 End: 01-06-2024 Encounter identifier Donn Ceballos Work Phone: [facility] Start: 01-02-2024 End: 01-02-2024 Office outpatient visit 25 minutes Donn Ceballos Work Phone: [facility] Start: 12-25-2023 End: 12-25-2023 ambulatory [facility] Start: 12-24-2023 End: 12-24-2023 ambulatory RADHA BURRIS Not Available Start: 12-07-2023 End: 12-07-2023 ambulatory ELEONORA LAUREANO Not Available Start: 10-10-2023 End: 10-10-2023 ambulatory [facility] Start: 09-27-2023 ambulatory [facility] Start: 09-01-2023 Letter encounter Radha cantu MD Work Phone: [facility] Start: 08-30-2023 ambulatory [facility] Start: 08-30-2023 End: 08-30-2023 ambulatory [facility] Start: 08-22-2023 End: 08-22-2023 ambulatory [facility] Start: 08-14-2023 End: 08-14-2023 ambulatory COLLIN [facility] Start: 08-07-2023 End: 08-07-2023 ambulatory [facility] Start: 07-18-2023 End: 07-18-2023 ambulatory [facility] Start: 07-11-2023 End: 07-11-2023 ambulatory RADHA BURRIS Not Available Start: 07-11-2023 End: 07-11-2023 ambulatory [facility] Start: 07-09-2023 ambulatory [facility] Start: 07-09-2023 End: 07-09-2023 ambulatory SHUKRI VILCHIS [facility] Start: 06-17-2023 [facility] Start: 06-10-2023 End: 06-10-2023 ambulatory Radha Burris Facility:[facility] Start: 06-10-2023 End: 06-10-2023 ambulatory MD Radha Burris Work Phone: [facility] Work Phone: Start: 06-10-2023 End: 06-10-2023 Patient encounter procedure MD Radha Burris Work Phone: [facility] [place] Work Phone: Start: 05-31-2023 Clinisync Result Encounter Generic External Data Provider [facility] External Department Unsolicited Start: 05-31-2023 Clinisync Result Encounter Generic External Data Provider [facility] External Department Unsolicited Start: 05-31-2023 End: 05-31-2023 ambulatory María Pearl APRN.STARTING GATE DRIVER Work Phone: Neurology Comment on above: Orthostatic hypotens ion (Primary Dx); [place]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) Start: 05-31-2023 End: 05-31-2023 Telemedicine consultation with patient María Pearl APRN.STARTING GATE DRIVER Work Phone: [facility] Start: 05-30-2023 Telephone encounter Charlene Soria [facility] Start: 05-30-2023 End: 05-30-2023 ambulatory SHUKRI MAME [facility] [employer] Other Start: 05-26-2023 Letter encounter Radha cantu MD Work Phone: [facility] Start: 2023 End: 2023 [facility] Start: 05-20-2023 End: 05-20-2023 ambulatory Imad Asaad Other Track Other Start: 05-20-2023 Telephone encounter Imad Asaad [facility] Start: 05-03-2023 End: 05-03-2023 ambulatory MAYELIN WOLFF Not Available Start: 05-02-2023 End: 05-02-2023 ambulatory MARTÍN JONES Not Available Start: 04-26-2023 End: 04-26-2023 ambulatory Imad Asaad Other Track Other Start: 04-26-2023 Telephone encounter Imad Asaad [facility] Start: 04-24-2023 End: 04-24-2023 ambulatory Imad Asaad Other Track Other Start: 04-24-2023 Telephone encounter Imad Asaad [facility] Start: 04-23-2023 End: 04-23-2023 ambulatory MATIAS A LARRY Not Available Start: 04-16-2023 End: 04-16-2023 ambulatory Radha Burris Facility:[facility] Start: 04-16-2023 End: 04-16-2023 Admission to same day surgery center MD Radha Burris Work Phone: [facility] Work Phone: Start: 04-16-2023 End: 04-16-2023 ambulatory MD Radha Burris Work Phone: [facility] Work Phone: Start: 04-09-2023 End: 04-09-2023 ambulatory Imad Asaad Other Track Other Start: 04-09-2023 Telephone encounter Imad Asaad [facility] Start: 04-03-2023 End: 04-03-2023 ambulatory [facility] Start: 04-01-2023 End: 04-01-2023 ambulatory Imad Asaad Other [facility] [employer] Other Start: 04-01-2023 Telephone encounter Imad Asaad [facility] Start: 03-21-2023 End: 03-21-2023 Office outpatient visit 15 minutes Donn Ceballos Work Phone: [facility] Start: 03-20-2023 End: 03-20-2023 ambulatory Imad Asaad Other [facility] [employer] Other Start: 03-20-2023 Office outpatient ne w 45 minutes Imad Asaad [facility] Start: 03-20-2023 End: 03-20-2023 Patient encounter procedure MD Radha Burris Work Phone: [facility] Work Phone: Start: 03-05-2023 End: 03-05-2023 Emergency department patient visit JAYLYN BENDER [facility] Start: 03-05-2023 ambulatory JACKIE Magana [facility] Start: 02-25-2023 End: 02-25-2023 ambulatory RADHA BURRIS Facility:[facility] Start: 02-25-2023 End: 02-25-2023 ambulatory [facility] Work Phone: Neurology Start: 02-25-2023 End: 02-25-2023 Patient encounter procedure [facility] Work Phone: [facility] Start: 02-05-2023 Telephone encounter María Zhao on LINUX ARCHITECT.STARTING GATE DRIVER Work Phone: Neurology Comment on above: Results (Gerri teran ) Start: 02-01-2023 End: 02-02-2023 ambulatory RADHA BURRIS [facility] Start: 02-01-2023 End: 02-01-2023 Subsequent hospital visit by physician Winifred Baker 2 [facility] Comment on above: Left lower quadrant abdominal pain Start: 02-01-2023 End: 02-01-2023 ambulatory [facility] Start: 01-31-2023 End: 02-01-2023 ambulatory [facility] Ambulatory Start: 01-31-2023 End: 01-31-2023 Office outpatient visit 25 minutes Yossi Chen MD Work Phone: [facility] Comment on above: Diarrhea, unspecifie d type (Primary Dx); Left lower quadrant abdominal pain Start: 01-28-2023 ambulatory María Pearl LINUX ARCHITECT.STARTING GATE DRIVER Work Phone: Neurology Comment on above: Tilt Start: 01-28-2023 E-mail encounter fro m caregiver María Pearl LINUX ARCHITECT.STARTING GATE DRIVER Work Phone: [facility] Start: 01-28-2023 Telephone encounter María Zhao on LINUX ARCHITECT.STARTING GATE DRIVER Work Phone: Neurology Comment on above: Results ([facility] ) Start: 01-26-2023 ambulatory María Pearl LINUX ARCHITECT.STARTING GATE DRIVER Work Phone: Neurology Comment on above: Test results Start: 01-24-2023 End: 01-24-2023 ambulatory RADHA BURRIS Facility:[facility] Start: 01-23-2023 End: 01-23-2023 ambulatory RADHA BURRIS Facility:[facility] Start: 01-21-2023 End: 01-21-2023 ambulatory [facility] Start: 12-31-2022 End: 12-31-2022 ambulatory RADHA BURRIS Facility:[facility] Start: 12-31-2022 End: 12-31-2022 Patient encounter procedure Sarbjit Richardson LINUX ARCHITECT.STARTING GATE DRIVER Work Phone: Neurology Comment on above: Autonomic dysfunctio n (Primary Dx); Dizzy spells Start: 12-28-2022 End: 12-28-2022 [facility] Start: 12-13-2022 Postop follow up vis it related to original px Radha Burris Work Phone: -[facility] DO Work Phone: Start: 12-13-[address] Yossi Chambers ity:[id number] Start: 12-10-2022 Chart Update Radha xavier Work Phone: [facility] DO Work Phone: Start: 11-29-2022 Postop follow up vis it related to original px Radha Burris Work Phone: [facility] DO Work Phone: Start: 11-29-[address] Yossi Chambers ity:[id number] Start: 11-22-2022 End: 11-22-2022 Evaluation and management of inpatient Dr. Yossi Chen Facility:[id number] Start: 11-16-2022 Telephone encounter Sarbjit Puentes LINUX ARCHITECT.STARTING GATE DRIVER Work Phone: Neurology Comment on above: Received Outside Med ical Records () Start: 11-12-[address] Yossi Chambers ity:[id number] Start: 10-29-2022 AUDIT Radha xavier Work Phone: QC-Wyxpppvcafqgup-Ofkscl n Work Phone: Start: 10-26-[address] Arabella Butt Facility:[id number] Start: 10-19-2022 ambulatory Sarbjit gregg LINUX ARCHITECT.STARTING GATE DRIVER Work Phone: Neurology Comment on above: Reaction Start: 10-18-2022 End: 10-18-2022 ambulatory Infusion Main Chair 3 Work Phone: Neurology Comment on above: Chronic migraine wit hout aura, with intractable migraine, so stated, with status migrainosus (Primary Dx) Start: 10-15-2022 End: 10-15-[address] 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 Arabella Butt Facility:[facility] Start: 10-10-2022 Encounter for preprocedural cardiovascular examination Dr. Arabella Butt [facility] Start: 10-09-2022 AUDIT Radha xavier Work Phone: [facility] Work Phone: Start: 10-08-2022 Rx Renewal Radha xavier Work Phone: [facility]wdx[facility]htbtmcit[facility] 4100 Work Phone: Start: 09-25-2022 Office outpatient vi sit 25 minutes Radha Burris Work Phone: YS-Tnxbotujpbatuz-Vabxpi n Work Phone: Start: 09-25-2022 JAYLON, Provider : Ruby Daily, Status: Pen, Time: 2:30 PM Radha Burris Work Phone: [facility] Work Phone: Start: 09-25-[address] Ruby Daily Facility:[facility] Start: 09-24-2022 Office outpatient vi sit 10 minutes Radha Burris Work Phone: [place] [id number] Work Phone: Start: 09-24-[address] Ranjana Perrin Facility:[id number] Start: 09-13-2022 End: 09-13-[address] Ruby Daily Facility:[facility] Start: 09-04-2022 Office outpatient vi sit 40 minutes Radha Burris Work Phone: YX-Bamfufnxxuoxpp-Nywzmi n Work Phone: Start: 09-04-[address] Ruby Daily Facility:[facility] Start: 08-30-2022 End: 08-30-[address] Ruby Daily Facility:[facility] Start: 08-30-2022 End: 08-30-2022 Subsequent hospital visit by physician Beth Diego MD Work Phone: [facility] Comment on above: Dysphagia, oropharyn [...] Obstructive sleep apnea (adult) (pediatric); 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, unspecified; [facility] (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 of antithrombotics/antiplatelets; [facility] (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 of aspirin; Personal history of transient ischemic attack (TIA), and cerebral infarction without residual deficits; Personal history of nicotine dependence; Allergy status to penicillin Start: 08-23-2022 AUDIT Radha xavier Work Phone: WZ-Wxhhuzhyiqylsy-Ccwtyz n Work Phone: Start: 08-20-[address] Radha Burris [facility] Start: 08-17-2022 Current tobacco non-user cad cap copd pv dm Radha Burris Work Phone: WH-Smdzeirmapjsmb-Mxoin MAC1 302 Work Phone: Start: 08-17-[address] Arabella Butt Facility:[id number] Start: 08-13-[address] Radha Burris Facility:[id number] Start: 08-13-2022 Patient encounter procedure Radha Burris [facility] [address] [place] Work Phone: Start: 08-10-[address] Ruby Daily Facility:[id number] Start: 07-31-2022 Office outpatient vi sit 40 minutes Radha Burris Work Phone: OF-Sfnesdrwvpntcm-Nkquww n Work Phone: Start: 07-31-2022 Patient encounter procedure Radha Burris Work Phone: PD-Gaddwbnmhkysvo-Xggelh n Work Phone: Start: 07-31-2022 JAYLON, Provider : Ruby Daily, Status: Pen, Time: 12:30 PM Radha Burris Work Phone: [facility] [address] [place] Work Phone: Start: 07-31-[address] Ruby Daily Facility:[id number] Start: 07-30-[address] Radha Burris Facility:[id number] Start: 07-30-2022 Patient encounter procedure Radha Burris Work Phone: [facility] [address] [place] Work Phone: Start: 07-29-2022 ambulatory Sarbjit gregg APRN.STARTING GATE DRIVER Work Phone: Neurology Comment on above: After effects Start: 07-26-2022 End: 07-26-2022 ambulatory Infusion Main Chair 3 Work Phone: Neurology Comment on above: Chronic migraine wit hout aura, with intractable migraine, so stated, with status migrainosus (Primary Dx) Start: 07-21-2022 ambulatory Sarbjit gregg LINUX ARCHITECT.STARTING GATE DRIVER Work Phone: Neurology Comment on above: What's next? Start: 07-18-[address] Ranjana Perrin Facility:[id number] Start: 07-17-2022 Office outpatient vi sit 25 minutes Radha Burris Work Phone: VH-Lzzcdjqicysqdw-Kifgza n Voice Work Phone: Start: 07-17-2022 Patient encounter procedure Radha Burris Work Phone: [facility]pthdynjhtdpwg[facility] 4100 Work Phone: Start: 07-17-[address] Ranjana Perrin Facility:[id number] Start: 07-11-2022 ambulatory Sarbjit gregg LINUX ARCHITECT.STARTING GATE DRIVER Work Phone: Neurology Comment on above: Test results Start: 06-04-2022 End: 06-05-[address] AISHWARYA SWAIN Facility:H1 Start: 05-31-2022 ambulatory Sarbjit gregg LINUX ARCHITECT.STARTING GATE DRIVER Work Phone: Neurology Comment on above: Today's visit Start: 05-31-2022 E-mail encounter tobias m caregiver Sarbjit Richardson LINUX ARCHITECT.STARTING GATE DRIVER Work Phone: [facility] Start: 05-31-2022 End: 05-31-2022 Patient encounter procedure Sarbjit Richardson LINUX ARCHITECT.STARTING GATE DRIVER Work Phone: Neurology Comment on above: Chronic migraine wit hout aura, intractable, without status migrainosus (Primary Dx); Aphasia; Other specified transient cerebral ischemias Start: 02-07-2023 Letter encounter Radha cantu MD Work Phone: [facility] Start: 03-22-2022 End: 03-23-2022 ambulatory YANDEL SHEN Facility:H1 Start: 02-05-2022 End: 02-06-[address] MONO CHRISTIE Facility:H1 Start: 01-09-2022 End: 01-09-[address] LEXI SINGH Facility:H1 Start: 01-01-2022 End: 01-05-2022 Evaluation and management of inpatient JANET FORD [facility] Start: 12-31-2021 End: 01-05-2022 Evaluation and management of inpatient John Saul MD Work Phone: [facility] Renal//Med Surg Comment on above: Acute pancreatitis, unspecified complication status, unspecified pancreatitis type (Primary Dx); Gall stone pancreatitis; MEELIA (acute kidney injury) (HCC) Start: 12-31-2021 End: 01-01-[address] RADHA [...] for preprocedural laboratory examination DR MONO CHRISTIE [facility] Start: 11-21-2021 End: 11-22-2021 ambulatory RADHA BURRIS Facility:[facility] Start: 11-17-2021 End: 11-18-[address] MONO CHRISTIE Facility:H1 Start: 11-17-2021 End: 11-18-2021 Encounter for preprocedural laboratory examination DR MONO CHRISTIE Facility:H1 Start: 11-16-2021 End: 11-16-[address] RADHA BURRIS Facility:H1 Start: 11-09-2021 End: 11-10-2021 ambulatory RADHA LEACHHMAN Facility:[facility] Start: 10-03-2021 End: 10-03-[address] Donnell Du Facility: Start: 10-03-2021 End: 10-04-2021 ambulatory YANDEL SHEN Facility:H1 Start: 10-02-2021 End: 10-02-2021 ambulatory Thor Ruddy Other Track Other Start: 10-02-2021 Office outpatient vi sit 15 minutes Thor Ruddy [facility] Start: 09-27-2021 End: 09-28-2021 ambulatory YANDEL SHEN Facility: Start: 08-30-2021 End: 08-30-2021 ambulatory Lashawn Estrada Other Track Other Start: 08-30-2021 Office outpatient vi sit 15 minutes Lashawn Estrada [facility] Start: 08-15-2021 (Procedure) Short Thor Fox [facility] Start: 08-15-2021 End: 08-15-2021 ambulatory Thor Ruddy Other Track Other Start: 08-03-2021 End: 08-03-2021 ambulatory Thor Ruddy Other Track Other Start: 08-03-2021 Office outpatient vi sit 25 minutes Thor Ruddy [facility] Start: 07-27-2021 (Procedure) Short Thor Fox [facility] Start: 07-27-2021 End: 07-27-2021 ambulatory Thor Ruddy Other Track Other Start: 07-18-2021 (Procedure) Short Thor Fox [facility] Start: 07-18-2021 End: 07-18-2021 ambulatory Thor Ruddy Other Track Other Start: 07-03-2021 End: 07-03-2021 Office outpatient visit 15 minutes Donn L Pulaski Work Phone: [facility] Start: 06-21-2021 End: 06-21-2021 Office outpatient new 30 minutes Donn L [place] Work Phone: [facility] Start: 05-01-2021 End: 05-01-2021 Subsequent hospital visit by physician Olivia [facility] Mike (I-Stat) Work Phone: Radiology Comment on above: Shortness of breath [R06.02] Start: 03-11-2020 End: 03-12-2020 Patient encounter procedure [facility] Start: 03-11-2020 End: 03-11-2020 Subsequent hospital visit by physician Rupinder Infusion Bed 3 [facility] INFUSION Comment on above: Arrived Start: 02-10-2020 End: 02-10-2020 ambulatory UNKNOWN PROVIDER Facility:[facility] Start: 10-20-2019 Patient encounter procedure Terrell Her QG-[facility]cvvkewpcgidhw-[facility] 4100 Work Phone: Start: 09-29-2019 Patient encounter procedure Terrell Her WT-Sczbsihijylwuq-ZukeajSan[facility] 4100 Work Phone: Start: 09-28-2019 Patient encounter procedure Terrell Her [facility]cl[facility] 4[facility] Work Phone: Start: 09-21-2019 Patient encounter procedure Terrell Arden UB-Kjtslofzqxlwps-RnheghSan[facility] 4100 Work Phone: Start: 09-17-2019 Patient encounter procedure Terrell Her [facility] Work Phone: Start: 09-10-2019 Patient encounter procedure Terrell Her [facility] Work Phone: Start: 06-29-2019 Patient encounter procedure Terrell Her [facility] Work Phone: Start: 03-03-2019 Patient encounter procedure Terrell Her -[facility] 3315 Work Phone: Start: 04-28-2018 Patient encounter procedure CLAIR MATT Facility:[id number] Procedures Date Procedure Procedure Detail Performing Clinician Start: 01-02-2024 End: 01-02-2024 Radex spine cervical 4 or 5 views Donn Ceballos MD Start: 06-10-2023 Computed tomography of abdomen and pelvis with contrast MD Radha Burris Work Phone: Start: 05-31-2023 ALL KAPPA/LAMBDA FREE SERUM Generic Exte rnal Data Provider Start: 04-16-2023 End: 04-16-2023 Colonoscopy MD Radha Burris Work Phone: Start: 03-21-2023 End: 03-21-2023 Radex spine cervical 4 or 5 views Donn Ceballos MD Start: 02-01-2023 CT ABDOMEN PELVIS W IV [...] Phone: Start: 01-03-2022 Assay of lipase Shane T Villalpando DO Work Phone: Start: 01-03-2022 BASIC METABOLIC PANEL W/ REFLEX TO MG FOR LOW K Shane T Villalpando DO Work Phone: Start: 01-03-2022 Hepatic function panel Shane T Villalpando DO Work Phone: Start: 01-03-2022 LACTATE, SEPSIS Shane T Villalpando DO Work Phone: Start: 01-02-2022 LACTATE, SEPSIS Shane T Villalpando DO Work Phone: Start: 01-02-2022 BASIC METABOLIC PANEL W/ REFLEX TO MG FOR LOW K Elio Campos MD Work Phone: Start: 01-02-2022 LACTATE, SEPSIS Shane T Villalpando DO Work Phone: Start: 01-02-2022 SURGICAL PATHOLOGY REPORT Amreese Matos MD Work Phone: Start: 01-02-2022 End: [...] Phone: Start: 01-02-2022 Hepatic function panel Shane Thurston Villalpando DO Work Phone: Start: 01-02-2022 LACTATE, SEPSIS Shane Thurston Villalpando DO Work Phone: Start: 01-01-2022 LACTATE, SEPSIS Shane Thurston Villalpando DO Work Phone: Start: 01-01-2022 LACTATE, SEPSIS Shane T Villalpando DO Work Phone: Start: 01-01-2022 Assay of troponin quantitative Nohelai Morris LINUX 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 Work Phone: Start: 01-01-2022 LACTATE, SEPSIS Shane Thurston Villalpando DO Work Phone: Start: 01-01-2022 Mri abdomen w/o contrast material Janet Ford LINUX 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 Work Phone: Start: 01-01-2022 Assay of troponin quantitative Nohelia Morris LINUX 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 Work Phone: Start: 01-01-2022 Blood count complete [...] panel - Serum or Plasma María Pearl LINUX ARCHITECT.STARTING GATE DRIVER Work Phone: Start: 01-01-2022 Assay of troponin quantitative Nohelia Morris LINUX 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 Work Phone: Start: 01-01-2022 Assay of troponin quantitative Nohelia Morris LINUX 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 Work Phone: Start: 01-01-2022 LACTATE, SEPSIS Shane Villalpando Work Phone: Start: 01-01-2022 Culture bacterial blood aerobic w/id isolates Nohelia Morris LINUX 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 Work Phone: Start: 01-01-2022 CULTURE, BLOOD 1 Nohelia Morris LINUX 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 Work Phone: Start: 12-12-2021 Antibody screen RADHA BURRIS Comment on above: Performed By: #### [id number] #### [address] Start: 06-21-2021 End: 06-21-2021 Radex spine cervical 4 or 5 views Donn Ceballos MD Start: 05-01-2021 Ct thorax w/o contrast material Cameron Miller MD Work Phone: Start: 09-14-2020 Laboratory test result abnormal Abnormal [...] History of operative procedure on knee Thor Ruddy Other History of thyroidectomy Nathaly Fox Other [...] 04-16-2033 Screening for malignant neoplasm of colon [facility] Start: 01-01-2027 Lipid panel [facility] Start: 03-05-2026 Diabetes Screening Diabetes Screenin [facility] Start: 01-31-2026 Diabetes Screening Diabetes Screenin [facility] Start: 11-21-2025 DIABETES SCREEN DIABETES SCREEN [facility] Start: 11-21-2025 Diabetes Screening Diabetes Screenin g [facility] Start: 03-10-2024 DIABETES SCREEN DIABETES SCREEN [facility] Start: 03-05-2024 Complete blood count Hemoglobin/Constantino tocrit [facility] Start: 03-05-2024 Creatinine measurement Serum Creatin ine [facility] Start: 02-01-2024 Creatinine measurement Basic Metabol ic Panel [facility] Start: 02-01-2024 Pneumococcal Vaccine : 65+ Years (1 - PCV) Pneumococcal Vaccine: 65+ Years (1 - PCV) [facility] Comment on above: Postponed from 05/21 (Patient Refused) Start: 02-01-2024 Serum Creatinine Serum Creatinine [facility] Start: 01-24-2024 BP Controlled (<130/80) BP Controlled (<130/80) [facility] Start: 01-06-2024 Cervical Spine MRI w/o contrast, Complete ([id number]), Body Site: Spine, Sent on: [facility] Start: 01-02-2024 MRI Lumbar Spi ne wo Contrast ([id number]), Body Site: MRI Head/Spine/Chest, Sent on: [facility] Start: 01-01-2024 BP CONTROLLED (<130/80) BP CONTROLLED (<130/80) [facility] Start: 12-22-2023 Covid-19 Vaccine ( season) Covid-19 Vaccine ( season) [facility] Start: 12-22-2023 Influenza vaccination Influenza Vacc ine (#1) [facility] Start: 11-22-2023 SERUM CREATININE SERUM CREATININE Cl [facility] Start: 10-20-2023 Influenza vaccination Influenza Vacc ine (#1) [facility] Comment on above: Postponed from 12/21 (Patient Refused) Start: 05-31-2023 BP CONTROLLED (<130/80) BP CONTROLLED (<130/80) [facility] Start: 05-31-2023 End: 08-30-2023 [place]/MIGUEL BETHEA,SER [facility] Work Phone: Comment on above: Expected: 05/31/2023 , Expires: 08/30/2023 Start: 04-22-2023 Advance Directive Discussion Advance Directive Discussion [facility] Start: 04-22-2023 Depression Assessment Depression Ass essment [facility] Start: 04-16-2023 [facility] Start: 03-21-2023 Patient referral Referrals: [facility] urology. [facility] Start: 02-01-2023 End: 02-01-2023 Patient encounter procedure 02/01/2023 1:45 PM EDT Appointment [facility] [address] [place] [id number] [facility] Start: 01-31-2023 End: 02-07-2023 Bacteria identified in Stool by Culture Stool Culture, Test of Cure Microbiology Routine Diarrhea, unspecified type Expected: 01/31/2023 (Approximate), Expires: 02/07/2023 [facility] Work Phone: Comment on above: Expected: 01/31/2023 (Approximate), Expires: 02/07/2023 Start: 01-31-2023 End: 02-01-2024 Basic metabolic 2000 panel - Serum or Plasma [facility] Work Phone: Comment on above: Expected: 01/31/2023 (Approximate), Expires: 02/01/2024 Start: 01-31-2023 End: 02-01-2024 CT Abdomen and Pelvis W contrast IV CT abdomen pelvis w IV contrast Imaging STAT Left lower quadrant abdominal pain Expected: 01/31/2023, Expires: 02/01/2024 [facility] Service Area Work Phone: Comment on above: Expected: 01/31/2023 , Expires: 02/01/2024 Start: 01-31-2023 End: 02-07-2023 Stool Pathogen Panel, PCR Stool Pathogen Panel, PCR Microbiology Routine Diarrhea, unspecified type Expected: 01/31/2023 (Approximate), Expires: 02/07/2023 [facility] Work Phone: Comment on above: Expected: 01/31/2023 (Approximate), Expires: 02/07/2023 Start: 01-27-2023 DTaP/Tdap/Td vaccine (2 - Td or Tdap) DTaP/Tdap/Td vaccine (2 - Td or Tdap) [facility] Start: 01-27-2023 DTaP/Tdap/Td Vaccine s (2 - Td or Tdap) DTaP/Tdap/Td Vaccines (2 - Td or Tdap) [facility] Start: 01-27-2023 Tetanus vaccination Tetanus (T d or Tdap) [facility] Start: 01-27-2023 Urine microalbumin profile [facility] Start: 01-01-2023 Diabetes mellitus screening Diabetes Screening [facility] Start: 01-01-2023 Hemoglobin A1c measurement A1C test (Diabetic or Prediabetic) [facility] Start: 01-01-2023 HEMOGLOBIN/HEMATOCRIT HEMOGLOBIN/HEM ATOCRIT [facility] Start: 01-01-2023 Hepatitis B surface antibody level LDL Cholesterol [facility] Start: 12-21-2022 Covid-19 Vaccine ( season) Covid-19 Vaccine () [facility] Start: 12-21-2022 Influenza vaccination [facility] Start: 12-13-2022 FUV, Provider: Yossi Chen, Status: Pen, Time: 10:45 AM FUV, Provider: Yossi Chen, Status: Pen, Time: 10:45 AM [facility] DO Work Phone: Start: 11-12-2022 NPV, Provider: Yossi Chen, Status: Pen, Time: 2:45 PM NPV, Provider: Yossi Chen, Status: Pen, Time: 2:45 PM [facility] Work Phone: Start: 10-26-2022 VIRFUVHOME, Provider : Arabella Terry, Status: Pen, Time: 3:00 PM VIRFUVHOME, Provider: Arabella Terry, Status: Pen, Time: 3:00 PM SL-Kbfooimuhxwupk-Kje ma MAC1 302 Work Phone: Start: 10-15-2022 [facility], Provider: Arabella Terry, Status: Pen, Time: 8:00 AM [facility], Provider: Arabella Terry, Status: Pen, Time: 8:00 AM OA-Wfvxscdlsbdywh-Gpa dman Work Phone: Start: 09-24-2022 VIRFUVHOME, Provider : Rajnana Perrin, Status: Pen, Time: 8:30 AM VIRFUVHOME, Provider: Ranjana Perrin, Status: Pen, Time: 8:30 AM PV-Pjrdsllarpqaaw-[facility] 4100 Work Phone: Start: 09-04-2022 VIRFUVHOME, Provider : Ruby Daily, Status: Pen, Time: 11:30 AM VIRFUVHOME, Provider: Ruby Daily, Status: Pen, Time: 11:[address] [facility] [address] [place] Work Phone: Start: 08-30-2022 EMOT, Provider: EUGENIE OREILLY PROCEDURE ROOM 10,MG GASTRO, Status: Pen, Time: 8:00 AM EMOT, Provider: ELIAN PROCEDURE ROOM 10,MG GASTRO, Status: Pen, Time: 8:00 AM PI-Azramimzqdnnhq-Yrl dman Work Phone: Start: 08-30-2022 EGDANS, Provider: Beth Diego, Status: Pen, Time: 7:30 AM EGDANS, Provider: Beth Diego, Status: Pen, Time: 7:30 AM DZ-Pxxjsviqsrwthd-Mab dman Work Phone: Start: 08-17-2022 NPV, Provider: Arabella Alarcon, Status: Pen, Time: 10:40 AM NPV, Provider: Arabella Terry, Status: Pen, Time: 10:40 AM [facility] [address] [place] Work Phone: Start: 08-13-2022 VIRFUVJOSHUA, Provider : Yoanna Quigley, Status: Pen, Time: 3:15 PM VIRFUVJOSHUA, Provider: Yoanna Quigley, Status: Pen, Time: 3:15 PM Rehab Services[facility] [address] [place] Work Phone: Start: 07-31-2022 JAYLON, Provider : Ruby Daily, Status: Thomas, Time: 12:30 PM JAYLON, Provider: Ruby Daily, Status: Thomas, Time: 12:30 PM TE-Maqdecrjygmxxj-Hqh dman Voice Work Phone: Start: 05-31-2022 End: 07-31-2022 Comprehensive metabolic 2000 panel - Serum or Plasma COMP METABOLIC PANEL Lab Routine Chronic migraine without aura, intractable, without status migrainosus Expected: 05/31/2022, Expires: 07/31/2022 [facility] Work Phone: Comment on above: Expected: 05/31/2022 , Expires: 07/31/2022 Start: 04-22-2022 ADVANCE DIRECTIVE DISCUSSION ADVANCE DIRECTIVE DISCUSSION [facility] Start: 04-22-2022 DEPRESSION ASSESSMENT DEPRESSION ASS ESSMENT [facility] Start: 03-10-2022 SERUM CREATININE SERUM CREATININE Cl [facility] Start: 01-20-2022 Influenza vaccination Influenza Vacc ine (#1) [facility] Start: 01-05-2022 End: 01-05-2023 Basic metabolic 2000 panel - Serum or Plasma Basic Metabolic Panel Lab Routine EMELIA (acute kidney injury) (HCC) Expected: 01/05/2022, Expires: 01/05/2023 [employer] Work Phone: Comment on above: Expected: 01/05/2022 , Expires: 01/05/2023 Start: 01-05-2022 End: 01-05-2023 CBC W Auto Differential panel - Blood CBC with Auto Differential Lab Routine Acute pancreatitis, unspecified complication status, unspecified pancreatitis type Expected: 01/05/2022, Expires: 01/05/2023 [employer] Work Phone: Comment on above: Expected: 01/05/2022 , Expires: 01/05/2023 Start: 12-21-2021 Influenza vaccination B ON [employer] Start: 07-03-2021 Patient referral [facility] [place] Start: 06-30-2021 Screening for malignant neoplasm of colon [facility] Start: 06-21-2021 End: 06-21-2021 [facility] Start: 06-05-2021 COVID-19 Vaccine (4 - Booster for Moderna series) COVID-19 Vaccine (4 - Booster for Moderna series) [facility] Start: 06-05-2021 COVID-19 VACCINE (4 - Moderna series) COVID-19 VACCINE (4 - Moderna series) [facility] Start: 01-14-2021 Basic metabolic 2000 panel - Serum or Plasma Basic Metabolic Panel [facility] Start: 01-14-2021 Creatinine measurement Basic Metabol ic Panel [facility] Start: 01-05-2021 Thyroid stimulating hormone measurement TSH [facility] Start: 12-15-2020 COVID-19 Vaccine (3 - Booster for Moderna series) COVID-19 Vaccine (3 - Booster for Moderna series) [facility] Start: 02-21-2020 Annual wellness visit Annual [facility] Visit ([id number]) [facility] Start: 12-22-2019 Influenza vaccination Flu vaccine (# 1) [facility] [place] Start: 03-03-2019 MRI Brain with out Contrast RC-Bqiimncrs-Twxuhjls d 201 Work Phone: Start: 2018 Abdominal aortic aneurysm screening Abdominal aortic aneurysm scan [facility] Start: 2018 Abdominal Aortic Aneurysm Screening (Age 65+) Abdominal Aortic Aneurysm Screening (Age 65+) [facility] Start: 2018 Pneumococcal 65+ yea rs Vaccine (1 - PCV) Pneumococcal 65+ years Vaccine (1 - PCV) [facility] [facility] Start: 2018 Pneumococcal 65+ yea rs Vaccine (1 of 1 - PPSV23) Pneumococcal 65+ years Vaccine (1 of 1 - PPSV23) [facility] [place] [facility] [place] Start: 2018 Pneumococcal vaccination [facility] Start: 2018 Pneumococcal Vaccine : 65+ (1 - PCV) Pneumococcal Vaccine: 65+ (1 - PCV) [facility] Start: 2018 Pneumococcal Vaccine : 65+ (1 of 1 - PCV) Pneumococcal Vaccine: 65+ (1 of 1 - PCV) [facility] Start: 2018 Pneumococcal Vaccine : 65+ Years (1 - PCV) Pneumococcal Vaccine: 65+ Years (1 - PCV) [facility] Start: 2018 PNEUMOCOCCAL: 65+ (1 - PCV) PNEUMOCOCCAL: 65+ (1 - PCV) [facility] Start: 2013 Hepatitis B (HBV) Vaccine (optional start 60+ years) Hepatitis B (HBV) Vaccine (optional start 60+ years) [facility] Start: 2013 RSV Vaccine (1 - 1-dose 60+ series) RSV Vaccine (1 - 1-dose 60+ series) [facility] Start: 2013 RSV Vaccine (1 - Ris k 60-74 years 1-dose series) RSV Vaccine (1 - Risk 60-74 years 1-dose series) [facility] Start: 2013 RSV vaccine (optiona l 60+ years) RSV vaccine (optional 60+ years) [facility] Start: 2008 PROSTATE CANCER SCREENING DISCUSSION PROSTATE CANCER SCREENING DISCUSSION [facility] Start: 2003 Measurement of occul t blood in single stool specimen FIT [facility] Start: 2003 Screening for malignant neoplasm of colon [facility] Start: 2003 Shingles (RZV) Vacci ne (1 of 2) Shingles (RZV) Vaccine (1 of 2) [facility] Start: 2003 Shingles Vaccine (1 of 2) Shingles Vaccine (1 of 2) [facility] Start: 2003 SHINGRIX VACCINE (1 of 2) SHINGRIX VACCINE (1 of 2) [facility] Start: 2003 Zoster Vaccines (1 o f 2) Zoster Vaccines (1 of 2) [facility] Start: 1998 COLOGUARD (FIT-DNA) COLOGUARD (FIT-D NA) [facility] Start: 1998 Colonoscopy COLONOSCOPY [facility] Start: 1998 COLORECTAL CANCER SCREENING COLORECTAL CANCER SCREENING [facility] Start: [address] COLONOGRAPHY [facility] Start: 1998 FECAL OCCULT BLOOD FECAL OCCULT BLOO D [facility] Start: 1998 Screening for malignant neoplasm of colon [facility] Start: 1998 SIGMOIDOSCOPY SIGMOIDOSCOPY [facility] Start: 1993 Lipid panel Lipid screen [place], [place] Start: 1988 Lipid 1996 panel - Serum or Plasma Lipid Screening [facility] Start: 1988 Lipid panel [facility] Start: 1988 LIPID SCREEN LIPID SCREEN [facility] Start: 1972 DTaP/Tdap/Td vaccine (1 - Tdap) DTaP/Tdap/Td vaccine (1 - Tdap) [place] Start: 1972 Hepatitis A (HAV) Vaccine (optional start 19+ years) Hepatitis A (HAV) Vaccine (optional start 19+ years) [facility] Start: 1971 ANNUAL PCP TEAM CHRONIC DISEASE VISIT ANNUAL PCP TEAM CHRONIC DISEASE VISIT [facility] Start: 1971 Anxiety Screening Anxiety Screening [facility] Start: 1971 Depression Screening Depression Scre ening [facility] Start: 1971 Hepatitis B surface antibody level LDL CHOLESTEROL [facility] Start: 1971 Hepatitis C screening B ON [employer] [facility] [facility] Start: 1971 HEPATITIS C SCREENING HEPATITIS C [facility] Start: 1965 Depression Screen Depression Screen [facility] [employer] Start: 1953 ABDOMINAL AORTIC ANEURYSM SCREENING ABDOMINAL AORTIC ANEURYSM SCREENING [facility] Start: 1953 Abdominal aortic aneurysm screening Abdominal Aortic Aneurysm Screening [facility] Start: 1953 Hepatitis C screening Hepatitis C [place], [place] Start: 1953 Lipid panel Lipid Panel [facility] Start: 1953 Medicare Annual Wellness Visit Medicare Annual Wellness Visit (AWV) [facility] Start: 1953 Screening for malignant neoplasm of colon [facility] Start: 1953 Thyroid stimulating hormone measurement TSH Level [facility] End: 01-07-2022 Basic metabolic 2000 panel - Serum or Plasma Basic Metabolic Panel Lab Routine Daily for 3 Days starting 01/05/2022 until 01/07/2022, 1 completed [employer] Work Phone: Comment on above: Daily for 3 Days sta rting 01/05/2022 until 01/07/2022, 1 completed Continuous pulse oximetry Pulse oximetry, continuous Respiratory Care Routine Every 4hr until discontinued starting 01/01/2022 [employer] Work Phone: Comment on above: Every 4hr until disc ontinued starting 01/01/2022 Culture, Blood 1 Culture, Blood 1 Microbiology STAT 01/01/2022 12:00 AM EDT [employer] Work Phone: Culture, Blood 2 Culture, Blood 2 Microbiology STAT 01/01/2022 12:01 AM EDT [employer] Work Phone: End: 12-31-2021 Intermittent pulse oximetry Pulse Oximetry Spot Check Respiratory Care Routine One Time for 1 Occurrences starting 12/31/2021 until 12/31/2021 [employer] Work Phone: Comment on above: One Time for 1 Occur rences starting 12/31/2021 until 12/31/2021 End: 06-30-2023 Mra head w/o contrst material [facility] Work Phone: Comment on above: 1 Occurrences starti ng 05/31/2022 until 06/30/2023 Oxygen therapy [Minimum Data Set] Initiate Oxygen Therapy Protocol Respiratory Care Routine As Needed until discontinued starting 12/31/2021 [employer] Work Phone: Comment on above: As Needed until disc ontinued starting 12/31/2021 Patient Education Colon polyps Hemorrhoids (DC) [facility] Work Phone: Surgical Pathology Surgical Path ology Lab Routine Gall stone pancreatitis Release Upon Ordering for 1 Occurrences starting 01/02/2022 [employer] Work Phone: Comment on above: Release Upon Orderin g for 1 Occurrences starting 01/02/2022 JB-Bdvmhnbkc-Lw effiel d 201 Work Phone: [facility] NEGATED: Highlighted row has been ruled out! Planned Goals not documented PX-Lntcmtvoc-Hmveymng d 201 Work Phone: Immunizations Immunization Date Immunization Notes Care Provider [facility] 07-15-2020 Moderna (primary 12+ yrs) COVID-19 vaccine, mRNA, spike protein, LNP, PF, 100 mcg/0.5 mL (CYP=878) Radha Burris MD Work Phone: [facility] 07-14-2020 Moderna SARS-CoV-2 Vaccination Generic Provider [facility] 06-17-2020 Moderna (primary 12+ yrs) COVID-19 vaccine, mRNA, spike protein, LNP, PF, 100 mcg/0.5 mL (RCZ=026) Radha Burris MD Work Phone: [facility] 06-16-2020 Moderna SARS-CoV-2 Vaccination Generic Provider [facility] 01-28-2016 influenza, injectable, quadrivalent, preservative free Radha Burris MD Work Phone: [facility] 01-28-2016 influenza virus vaccine, unspecified formulation Radha Burris MD Work Phone: [facility] 01-27-2013 tetanus toxoid, reduced diphtheria toxoid, and acellular pertussis vaccine, adsorbed Thor Fox Other [facility] NEGATED: Highlighted row has not occurred!04-28-2019 influenza, high dose seasonal, preservative-free Patient Objection Thor Fox Other Track Other NEGATED: Highlighted row has not occurred!06-14-2015 influenza, injectable,quadriva lent, preservative free, pediatric Patient Objection Thor Fox Other Track Other Payers Date Payer Category Payer Self-pay [id number] 2019 Unknown [id number] 2018 Medicare [id number] [id number] 1959 Medicare [id number] 1959 Unknown [id number] 1953 Unknown [id number] 2.16.8 40.1.840759.3.579.2.355 1953 Unknown [id number] 2.16.84 0.1.864733.3.579.2.185 1953 Unknown [id number] 2.16. 840.1.720324.3.579.2.732 1953 Unknown [id number] 2.16.8 40.1.747416.3.579.2.647 1953 Unknown [id number] 2.16.8 40.1.517653.3.579.2.647 1953 Unknown [id number] 2.16.8 40.1.375992.3.579.2.647 1953 Unknown [id number] 2.16. 840.1.889614.3.579.2.175 1953 Unknown [id number] 2.16.84 0.1.046894.3.579.2.593 1953 Unknown [id number] 2.16.84 0.1.292494.3.579.2.593 1953 Unknown [id number] 2.16.84 0.1.346478.3.579.2.593 1953 Unknown [id number] 2.16.84 0.1.732274.3.579.2.593 1953 Unknown [id number] 2.16.84 0.1.732930.3.579.2.593 1953 Unknown [id number] 2.16.84 0.1.259909.3.579.2.593 1953 Unknown [id number] 2.16.84 0.1.643373.3.579.2.593 1953 Unknown [id number] 2.16.84 0.1.503318.3.579.2.593 1953 Unknown [id number] 2.16.84 0.1.746340.3.579.2.593 1953 Unknown [id number] 2.16.84 0.1.304109.3.579.2.593 1953 Unknown [id number] 2.16.84 0.1.168316.3.579.2.593 1953 Unknown [id number] 2.16.84 0.1.750616.3.579.2.593 1953 Unknown [id number] 2.16.84 0.1.770816.3.579.2.593 1953 Unknown [id number] 2.16. 840.1.857145.3.579.2.356 1953 Unknown [id number] 2.16.8 40.1.625478.3.579.2.1046 1953 Unknown [id number] 2.16.8 40.1.347741.3.579.2.1046 1953 Unknown [id number] 2.16.8 40.1.698139.3.579.2.1046 1953 Unknown [id number] 2.16.8 40.1.626871.3.579.2.1046 1953 Unknown [id number] 2.16.8 40.1.231709.3.579.2.1046 1953 Unknown [id number] 2.16. 840.1.051629.3.579.2.356 1953 Unknown [id number] 2.16. 840.1.767527.3.579.2.356 1953 Unknown [id number] 2.16. 840.1.025766.3.579.2.356 1953 Unknown [id number] 2.16. 840.1.600013.3.579.2.356 1953 Unknown [id number] 2.16. 840.1.597539.3.579.2.356 1953 Unknown [id number] 2.16. 840.1.179213.3.579.2.356 1953 Unknown [id number] 2.16. 840.1.215485.3.579.2.356 1953 Unknown [id number] 2.16. 840.1.408290.3.579.2.356 1953 Unknown [id number] 2.16. 840.1.126132.3.579.2.356 1953 Unknown [id number] 2.16. 840.1.710531.3.579.2.356 1953 Unknown [id number] 2.16. 840.1.629774.3.579.2.356 1953 Unknown [id number] 2.16. 840.1.687431.3.579.2.356 1953 Unknown [id number] 2.16. 840.1.877989.3.579.2.356 1953 Unknown [id number] 2.16.8 40.1.216860.3.579.2.8 1953 Unknown [id number] 2.16.8 40.1.950744.3.579.2.1068 1953 Unknown [id number] 2.16.8 40.1.502942.3.579.2.1244 1953 Unknown [id number] 2.16.84 0.1.817498.3.579.2.1245 1953 Unknown [id number] 2.16.84 0.1.976767.3.579.2.1245 1953 Unknown [id number] 2.16.8 40.1.911007.3.579.2.1246 1953 Unknown [id number] 2.16.84 0.1.544483.3.579.2.1259 1953 Unknown [id number] 2.16.84 0.1.357213.3.579.2.1259 1953 Unknown [id number] 2.16.84 0.1.622491.3.579.2.1259 1953 Unknown [id number] 2.16.84 0.1.420640.3.579.2.1259 1953 Unknown [id number] 2.16.84 0.1.132521.3.579.2.9 1953 Unknown [id number] 2.16.84 0.1.500790.3.579.2.1259 1953 Unknown [id number] 2.16.84 0.1.661441.3.579.2.1259 1953 Unknown [id number] 2.16.840 .1.187390.3.579.2.1259 Private Health Insurance [id number] Unknown [id number] 2.16.8 40.1.275968.3.579.2.531 Unknown [id number] 2.16.8 40.1.087160.3.579.2.531 Social History Date Type Detail Facility Assertion Unknown if ever smoked [facility] [id number] Work Phone: Start: 1955 Sex [place] Start: 12-01-2020 End: 06-29-2021 Sex Assigned At [facility] Start: 01-01-2022 Tobacco smoking status NHIS Never smoked tobacco [facility]d2c Phone: Start: 10-07-2017 End: 01-01-2022 Tobacco use and exposure Smokeless tobacco non-user [facility]c Phone: Start: 12-21-2021 End: 01-31-2023 Exposure to SARS-CoV-2 (event) Not sure [facility] Work Phone: Start: 10-07-2017 End: 01-06-2020 Tobacco smoking status NHIS Ex-smoker [facility] Start: 04-22-1967 End: 01-06-1984 [facility] Start: 04-22-1967 End: 01-06-1984 History of tobacco use [facility] Start: 01-27-2020 End: 04-05-2021 Alcohol intake Current drinker of alcohol (finding) [facility] Start: 01-27-2020 End: 12-01-2020 Alcohol intake [facility] Start: 01-06-2020 History SDOH Alcohol Frequency 2 [facility] Start: 05-04-2021 Alcohol Comment 1 beer once a month [facility] Adult Depression Screening Assessment 1 [facility] Start: 01-06-2024 Tobacco smoking status [facility] Tobacco smoking consumption unknown [facility] Work Phone: Start: 1955 Sex Assigned At Male [facility] Within the last year , have you [...] [facility] Start: 10-02-2022 Tobacco Comment Last smoked:>20 years ago [facility] Start: 10-02-2022 Alcohol Comment one beer a month. Caffeine intake: 2-3 cups per day of coffee [facility] Start: 07-04-2022 Gender identity Identifies as male gender (finding) [facility] Start: 12-01-2020 Alcohol Comment one half of a beer once a month [facility] Start: 03-28-2021 End: 04-27-2021 Exposure to SARS-CoV-2 (event) Unable to assess [facility] Start: 01-06-2024 Alcohol intake Alcohol Use Details [facility] Start: 02-06-2021 Sexual Orientation Straight or heterosexual [facility] Medical Equipment Procedure Code Equipment Code Equipment Origin al Text Equipment Identifier Dates Gas Ispan [employer]ellation Intraocular Vision System [id number] 125gm - [id number] Start: 10-15-2017 Lens Iol Ultrase rt 16 - [id number] Start: 10-15-2017 Sleeve 2.4mm 1.5 mm Silicone 30mm Scleral Round Sterile - [id number] Start: 10-15-2017 Strip Silicone [id number] Retinal 9229 Sterile - [id number] Start: 10-15-2017 Goals Date Patient Goal Desired Activity /State Functional Status Date Assessment Result Facility NEGATED: Highlighted row Functional performance Functional status health issues are not documented Disease RN-Bzjrryxtf-Kronmp eld 201 Work Phone: Mental Status Date Assessment Result Facility NEGATED: Highlighted row Cognitive function [Interpretation] Cognitive status health issues are not documented Disease LH-Avabdtgxa-Yyqvcj eld 201 Work Phone: Clinical Notes 2018 to 01-02-2024 Note Date & Type Note Facility 01-02-2024 History of Presen t illness Narrative Encounter Date Follow Up Spine-cervical Location: Pain diagram reviewed and is filed in the patients chart . Hand Dominance: Patient is right handed. Comments: h/o C3-4 ACDF around 10-13 years ago by DLS. He states his neck has been bothering him for a year or two. He is having pain and stiffness with moving his head back and forth. He states that he has been having chest pain, headaches, dizziness and was referred to come back for a follow up from his fur glazer. New Problem Spine-cervical Location: Pain diagram reviewed and is filed in the patients chart . Hand Dominance: Patient is right handed. Comments: h/o C3-4 ACDF around 10-13 years ago. He states his neck has been bothering him for a year or two. He states same area he had previous surgery. He states he is having numbness now in the right arm. He states pain in the neck changes in severity depending on activity, he would rate 6/10 at it's worst. He has tried OTC medications with some relief. He has tried icy hot, ice/heat, PT in November without relief. He has been having trouble sleeping at night due to the discomfort/pain. Follow Up Spine-cervical Location: Pain diagram reviewed and is filed in the patients chart . Hand Dominance: Patient is right handed. Comments: [facility] New Problem Spine-cervical Location: Bilateral cervical spine. Left anterior shoulder. Pain diagram reviewed and is filed in the patients chart . Severity: Current pain level: 5/10. Lowest pain level: 1/10. Highest pain level: 9/10. Duration: 6 months. constant Yes. Pain has increased in the last 1 week. Quality: Stabbing. Timing: Did the pain start gradually? Yes. Associated Symptoms: Numbness and tingling in L arm? Yes. Weakness in L arm? Yes. Difficulty sleeping? Yes. Context: Do you drop objects? Yes. Does the pain limit your ADLs? Yes. Worse with overhead activity? Yes. Modifying Factors: Physical Therapy: makes it worse. Previous Medications: Motrin: Same.. Hand Dominance: Patient is right handed. Comments: Former patient at [facility], h/o C3-C4 ACDF 9-12 years ago. He was doing well up until a few months ago. [employer] [facility] Work Phone: 1(919) 758-567709-04-2024 [facility] Chief Complaint: follow up for dizziness and chest pain. HPI: Yoli Peoples Harmony Isidro is a 68 y.o. male with a complex medical history including paroxysmal atrial fibrillation s/p watchman device, chronic kidney disease, dyslipidemia and hypertension. He has atypical/noncardiac chest pain, he is here for follow-up I reviewed the results of his cardiac catheterization 02/2021; this was done at [facility]. He has mild nonobstructive coronary artery disease. In addition, the use acetylcholine provocative testing to evaluate the microvasculature and induce any spasm. He had no reproducible symptoms, he had no coronary spasm. He was ruled to have normal microvascular function. Pertinently, the patient has a history of severe cervical disc problems and prior surgeries including surgical placement of plates. He has atypical chest pain . This certainly could be cervical angina. Isosorbide caused headaches and did not help his pain. Ranexa did not help his chest pain. Patient also complained of dizziness with no syncopal attack. He has history of pots disease and following up with Dr. Vilchis. No orthopnea or PND. No leg swelling. Cardiology ROS: GENERAL: Denies fever, chills, night sweats, weight loss. HEENT: Denies changes in vision, photophobia, changes in hearing, epistaxis, oral bleeding. CARDIOVASCULAR: Denies chest pain, exertional dyspnea, orthopnea/PND, lower extremity edema, palpitations, lightheadedness/dizziness. RESPIRATORY: Denies SOB, coughing, wheezing GI: Denies abdominal pain, nausea/vomiting, heartburn, melena/hematochezia. RENAL: Denies dysuria, hematuria, flank pain. MSK: Denies muscle weakness/pain, arthralgias/joint pain. NEUROLOGIC: Denies LOC, weakness, numbness, headaches. SKIN: Denies abnormal rashes or bleeding. PSYCH: Denies significant anxiety, depression, sleep disturbances. Past Medical History He has a past [...] reports that he does not use drugs. Family History Family History Problem Relation Name Age of Onset Hypertension Mother Mother Cancer Mother Mother Stroke Mother Mother Hypertension Father Father Aortic aneurysm Father Father Cancer Father Father Aortic aneurysm Paternal Grandfather Sudden Neg Hx Allergies Penicillins, Tikosyn [dofetilide], and Vancomycin Medications (Not in a hospital admission) Last Recorded Vitals @IPVITALS@ Physical Examination: GENERAL: alert and oriented x3, well developed, in no acute distress. HEAD: atraumatic, normocephalic. EYES: JAMAAL, EOMI. NECK: trachea midline, no JVD present, no carotid bruits present. CARDIAC: S1, S2 present. RRR. No murmur, rubs, or gallops. RESPIRATORY: CTAB, no increased effort of breathing, no rales, rhonchi, or wheezing. ABDOMEN: soft, nontender, nondistended. EXTREMITIES: no lower extremity edema, peripheral pulses are 2+ bilaterally. No rash/skin discoloration present. NEURO: strength/sensation equal and symmetric in bilateral upper and lower extremities. PSYCH: appropriate mood, affect, and judgement. Assessment: Nonspecific chest pain. Dizziness, history of POTS syndrome following up with Dr. Vilchis. Paroxysmal atrial fibrillation status post Watchman device placement. Cervical disc problems, following up with neurosurgery. History of hiatal hernia status post repair. Discussion Notes Plan 1.-Reassurance; I informed the patient that his cardiac catheterization showed no significant coronary artery disease, no evidence of coronary spasm and normal microvascular function. 2.-The differential diagnosis of his chest pain is likely related to his cervical disc problems plus or minus gastrointestinal causes. Discussed referral back to his neurosurgeon plus or minus gastroenterology with his family physician. 3.- Will follow up with director oracle database Dr. Vilchis. Serene Solis MD [place] - PGY6 [facility] By using the attestations below, the signing clinician ag (more content not included)...[facility]06-20-2024 NoteSYNCOPE AND AUTONOMIC DISORDERS CLINIC Reason for Consultation: Angina, pacemaker HPI: Yoli Antunez Jr. is a 68 y.o. year old with past medical history of pacemaker implantation for sick sinus syndrome. He also has a history of recurrent angina. He had a recent cardiac catheterization that demonstrated coronary disease but not at a level that could be revascularized. Indeed it appears that he may have microvascular disease. He continues to have episodes of chest pain that can occur during exertion or during rest. I am going to try and place him on Ranexa 1000 mg orally twice daily. His blood pressures runs low enough that it is one of the few options we can employ. I personally analyzed his pacemaker in clinic today and found that it paces around 69% of the time. His rate is set at 60 beats a minute and I am turning the rate down to 55 beats a minute just to see if that makes a difference in his anginal frequency. Given the fact this is most likely microvascular disease we may consider using sildenafil or tadalafil as a potential therapy. PMH: Past Medical History: Diagnosis Date Arrhythmia [...] mcg by mouth every 7 (seven) days. levothyroxine (Synthroid, Levoxyl) 150 mcg tablet Take [...] visit. ROS: Cardio Basic Cardiovascular Symptoms: Chest pain/angina, lightheadedness, no leg edema, no syncope, no [...] dizziness, no headaches Psychiatric Psych: no depression, feeling safe in relationship, no alcohol abuse, Hematologic/Lymphatic Hematologic/Lymphatic no swollen glands, no bruising Physical Exam: Constitutional General Appearance: well-nourished, well-developed, appears stated age Level of Distress: comfortable Psychiatric Mental Status: alert, normal affect Orientation: oriented to time, place, and person Insight: good judgement Cardiovascular Rate And Rhythm: regular Heart Sounds: normal (more content not included)...[facility]05-10-2024 NoteCardiovascular Laboratory Report FINAL IMPRESSIONS: Moderate to severe disease [...] Vilchis, Electrophysiology as scheduled Follow-up with [facility] [place] as scheduled PROCEDURES: Ultrasound-guided access to the [...] left radial artery was obtained. A 6 Latvian glide sheath was inserted without difficulty. Bilateral [...] mid to distal portion. INDICATIONS: Chest pain, presyncopeUnOur [facility]05-03-2024 NotePt stated he has been told that he becomes nasty if he does not received enough sedation, states he needed general for his Watchman procedure. He also states he becomes aphasic w/ too much sedation.[facility] 08-22-2023 NoteSYNCOPE AND AUTONOMIC DISORDERS CLINIC Reason for Consultation: Chest pain [...] Psych: no depression, feeli (more content not included)...[facility]05-02-2024 NoteSYNCOPE AND AUTONOMIC DISORDERS CLINIC Reason for Consultation: Chest pain HPI: Yoli Peoples Tigistcharlesjordi Isidro is a 68 y.o. year old [...] Psych: no depression, feeli (more content not included)...[facility]04-24-2024 NoteCardiovascular Medicine [place] [facility] SUBJECTIVE Yoli Antunez Jr. is a 68 y.o. male here for follow-up after his recent PPM implant due to site concern. HPI PMHx: CAD s/p PCI, a.fib/flutter s/p ablation 07/18/2023 He underwent PPM implant on 07/09/2023. Patient here today with concerns about his wound s/p PPM insertion on 07/09/[address] Vilchis. He said over the weekend it puffed up and had a blister on it. He said there was no pus, but there was a small amount of clear liquid and blood. Site was examined and was clean, dry, and intact. No signs of infection or discharge. No additional complaints or concerns per patient at this time. Patient Active Problem List Diagnosis Paroxysmal atrial fibrillation (CMS/HCC) Essential hypertension Coronary artery disease involving gila river coronary artery of gila river heart without angina pectoris Recurrent falls History [...] Aneurysm of ascending aorta without rupture (CMS/HCC) Coronary artery disease involving gila river coronary artery of gila river heart Past Medical History: Diagnosis Date Arrhythmia Atrial [...] date: 1967 Quit date: 1983 Years since quittin.4 Smokeless tobacco: Former Types: Chew Quit date: [...] and are negative. OBJECTIVE Visit Vitals BP 104/68 (BP Location: Left arm, Patient Position: Sitting) Pulse 72 Ht 1.981 m (6' 6 ) Wt 109 kg (241 lb) SpO2 96% BMI 27.85 kg/m??? Smoking Status Former BSA 2.45 m??? (more content not included)...[facility] 07-18-2023 NotePatient here for wound check s/p PPM insertion on 07/[address] Vilchis.[facility]03-28-2024 NoteCardiovascular Medicine [place] [facility] SUBJECTIVE Chief Complaint Patient presents with Palpitations Atrial Fibrillation Syncope s/p pacemaker Wound Care Yoli Antunez JrAmarjit is a 68 y.o. male here for [...] (CMS/HCC) Essential hypertension Coronary artery disease involving gila river coronary artery of gila river heart without angina pectoris Recurrent falls History [...] not start before No (more content not included)...[facility]03-21-2024 NoteCardiovascular Medicine [place] [facility] SUBJECTIVE No chief complaint on file. [...] an episode yesterday while walking around in [facility]. He notes that he does not wear [...] (CMS/HCC) Essential hypertension Coronary artery disease involving gila river coronary artery of gila river heart without angina pectoris Recurrent falls History [...] 82 Ht 1.981 m (more content not included)...[facility] 07-11-2023 NotePatient here for wound check s/p PPM placement with Dr. Vilchis [...] change. All other systems reviewed and are negative.[facility] 07-09-2023 NoteIndications for permanent pacemaker implantation and loop recorder removal: The [...] of the upper extremity Shukri Vilchis M.D. [facility] Mailing Managerpanel saw operator and Pediatrics Director: Cardiac Electrophysiology ProgramMercy Health Willard Hospital 07-09-2023 NotePatient: Yoli Antunez Jr. Procedure Information Date/Time: 07/09/23 1230 Procedure: Pacemaker DC new - biotronik DC pacemaker implant Location: [facility] MANAGER INVESTIGATIONS 1 / [facility] (Cath) Providers: Shukri Vilchis MD Clinical information reviewed: Allergies Meds Physical Exam Airway Mallampati: III Cardiovascular - normal exam Dental Pulmonary - normal exam Abdominal - normal exam Anesthesia Plan ASA 3 CSE Anesthetic plan and risks discussed with patient. Use of blood products discussed with patient who consented to blood products. Plan discussed with attending. Additional Equipment RequestsMercy Health Willard Hospital02-26-2024 Note Jayme Antunez is a pleasant 68 year old male previously evaluated for episodes of syncope and near syncope with history of atrial fibrillation and rf ablation at our [facility] in the [facility] at the [facility]. He was recently evaluated by Dr. [...] and time. Lab Review: Stress test 05/2023: [facility] CONCLUSION: 1. No acute or reversible ischemia. 2. Diaphragm attenuation artifact versus mildly decreased perfusion of the inferior wall; stable between stress and rest imaging. Attenuation artifact is suspected. 3. Normal wall motion, left ventricle volume, and ejection fraction. Dictated by: Donnell Du M.D. on 06/07/2023 at 12:03 Approved by: Donnell Du M.D. on 06/07/2023 at 13:36 [facility] echocardiogram 05/2023: CONCLUSION: 1. The left [...] PPM He had all questions answered. RTC [address] [place] [address] 05-31-2023 NoteHNO ID: [id number] Author: MARÍA PEARL APRN.STARTING GATE DRIVER Service: ? Author Type: Nurse Practitioner Type: [...] visit. Either the patient or their legal paper sales representative has been informed of the risks [...] will repeat tilt table testing here at [facility]. We reviewed the diagnosis of orthostatic hypotension. [...] was seen by Dr. Vilchis at the [facility] yesterday. Dr. Vilchis feels that Jamil has sick sinus syndrome. He is going to have a pacemaker placed. Jamil is going to have an echocardiogram and stress test next week. Pacemaker to follow the above testing. Skin nerve biopsy here at [facility] not indicative of small fiber neuropathy. Abnormality [...] well. Medications Reviewed ergocal (more content not included)...[facility]02-09-2024 History of Present illness Narrative* María Pearl APRN.NEETU - 05/31/2023 10:45 AM EST Yoli Antunez is a 68 year old male. Patient presents with: Follow Up Today I had the opportunity to have a virtual visit with Yoli Antunez I have communicated my name and active licensure. The patient's identity and physical location wereverified at the time of this visit. Either the patient or their legal paper sales representative has been informed of the risks and benefits of -- and alternatives to -- treatment through a remote evaluation andconsents to proceed with the evaluation remotely. Impression/Plan from our last visit 01/23/2023: Jamil is a right handed, 67 year old male with a past medical history significant for Paroxysmal Atrial Fibrillation s/p cardiac ablation x3, hypertension, chronic kidney disease stage 3, Thyroid goiter s/p thyroidectomy 2018, hypothyroidism, GI bleed, abdominal aortic aneurysm, chronic daily headac hes, ocular migraines, TIA x2, prolonged QT interval [...] will repeat tilt table testing here at [facility]. We reviewed the diagnosis of orthostatic hypotension. [...] was seen by Dr. Vilchis at the [facility] yesterday. Dr. Vilchis feels that Jamil has sick sinus syndrome. He is going to have a pacemaker placed. Jamil is going to have an echocardiogram and stress test next week. Pacemaker to follow the above testing. Skin nerve biopsy here at [facility] not indicative of small fiber neuropathy. Abnormality [...] included: CH. PAIN, DIZZINESS, FATIGUE, HEADACHE, INCREASING, LIGHTHEADED,SEE NOTE. - Overall: The test was stopped [...] father, paternal grandfather, and paternal uncle; Cancer inhis father, mother, and paternal uncle; Glaucoma in his paternal grandmother; Heart in his maternalgrandfather and maternal grandmother; Heart (age of onset: 54) in his paternal grandfather; Kidney D isease in his brother; Stroke in his mother; [...] He was seen by Dr. Vilchis at [facility] who would like to place a pacemaker [...] which included preparing to see the patient, [id number] patient care, completing clinical documentation, obtaining and/or [...] this visit on 05/31/23. María Pearl MSN, LINUX ARCHITECT, MEDICAL STAFF SPECIALIST-C documented in this encounterC[facility]02-08-2024 NoteSYNCOPE AND AUTONOMIC DISORDERS CLINIC Reason for Consultation: Sick sinus syndrome/tachybradycardia syndrome HPI: Yoli Peoples Harmony Isidro is a [...] snoring, no dry mouth, (more content not included)...[facility]01-30-2024 NoteUT Electrophysiology Consult Note Reason for visit: dysautonomia 05/21/23: He is here for ER follow-up for chest pain he was evaluated at [place] [facility] recently for chest pain but was [...] correlate ECG to symptoms 01/21/23 HPI: Yoli Antunez is a 68 y.o. year old with [...] table scheduled as well. He has a [employer] loop and I reviewed his loop data, [...] (Topamax) 25 mg ta (more content not included)...[facility]01-30-2024 NotePatient here for follow up [facility] ED for chest pain. He's been taking [...] change. All other systems reviewed and are negative.[facility] 05-20-2023 Evaluation note* Encounter Date Diagnosis Assessment Notes Treatment Notes Treatment Clinical Notes Apr, Abdominal pain (ICD-10 - R10.9) Apr, Diarrhea (ICD-10 - R19.7) Track Other 01-26-2024 NoteThe patient stated that he [...] again with him next week. Keeley Don, [facility] 06/05/23 3:27 PMMercy Health Willard Hospital01-26-2024 NotePatient called back and I discussed Roly's complete note. Patient is going to apply for Extra Help, I am sending all the information to him via email ([email or web address]). Wendi Estrada, [facility] 05/21/23 2:44 PMMercy Health Willard Hospital01-26-2024 NoteSpecialty Pharmacy Note: Corlanor Supervising Physician & Clinic:??Yandel Shen NP/ Mono Christie MD [facility] Yoli Peoples Harmony Isidro is a 67 y.o. year old male [...] submit PA via CMM. Shelly Murcia, [address] [employer] 05/17/23 4:12 PM [facility] [phone] Marge Funes PharmD, HOSSEINCP 05/20/23 1:07 PM [facility] [phone] Health Willard Hospital01-26-2024 NotePatient is still waiting to hear back from the doctor. Okay to follow up Saturday to see if he wants to proceed with corlanor. Aliya De La Cruz [facility] 06/14/23 9:21 AMMercy Health Willard Hospital01-26-2024 NoteReceived provider portion. Marge Funes PharmD, GUIDO 05/29/23 2:40 PM [facility] [phone] Health Willard Hospital01-26-2024 NoteSpoke with the patient. Patient stated that the insurance sent a letter in the mail on 05/20/2023 stating stating that it was covered. I told the patient that even with the insurance covering the medication, it will still cost $133. T he patient also stated that he has sent the application to [employer]. I told him if he could send [...] and then send in the application to [employer]. Soco Schafer, [employer] 05/28/23 3:29 PM [facility] [phone] Health Willard Hospital01-26-2024 NotePatient called back today and would like us to send him the PAP form. He looked up the Extra Help information and he said that he misses it by $100. We informed him that he still has to apply because we need a denial letter. I sent him the PAP via e-mail for him to start filling that out. Wendi Estrada [facility] 05/22/23 12:51 PMMercy Health Willard Hospital01-26-2024 NotePer message from Jackie Banks pt is to receive a permanent pacemaker and corlanor is going to be held. We will not continue follow up. Discarded folder. Aliya De La Cruz [facility] 06/20/23 9:26 AMMercy Health Willard Hospital01-26-2024 NoteSpoke to the patient. I think [...] that he hasn't sent anything in to [employer]. He will fill out that paperwork and send to me in an email today. I explained that [employer] usually requires the Extra Help denial but that it might take weeks to get that letter so we can go ahead and submit the [employer] PAP application without it and see what they say. Once I get his portion and the provider portion I will fax everything in. I am emailing the provider portion today, doesn't look like that was done. Marge Funes, PharmD, BCACP 05/29/23 10:11 AM [facility] [phone] Health Willard Hospital01-26-2024 NotePrior Authorization for Corlanor has been approved 04/20/2023-05/19/2024. Case ID/Authorization Number:[id number] No letter to scan at this time. [...] signed the forms in appt. Roly Cuenca, [facility] 1/29/24 at 2:41 PMMercy Health Willard Hospital12-26-2023 Procedure note [facility]12-13-2023 NoteCardiovascular Medicine [place] [facility] SUBJECTIVE Chief Complaint Patient presents with [...] (CMS/HCC) Essential hypertension Coronary artery disease involving gila river coronary artery of gila river heart without angina pectoris Recurrent falls History [...] (360 mg) by m (more content not included)...[facility]12-13-2023 NotePatient here for 1 year follow up s/p Watchman implant. Review of Systems Cardiovascular: Positive for chest pain, dyspnea on exertion, irregular heartbeat, leg swelling (resolves by morning), near-syncope, palpitations and syncope. Musculoskeletal: Positive for arthritis, back pain, joint pain and myalgias. Neurological: Positive for dizziness, headaches, light-headedness and sensory change. All other systems reviewed and are negative.[facility] 04-01-2023 Evaluation note* Encounter Date Diagnosis Assessment Notes Treatment Notes Treatment Clinical Notes Mar, Abdominal pain (ICD-10 - R10.9) Mar, Diarrhea (ICD-10 - R19.7) Track Other 11-29-2023 Evaluation note* Encounter Date Diagnosis Assessment Notes Treatment Notes Treatment Clinical Notes Feb, Diarrhea (ICD-10 - R19.7) Feb, Hiatal hernia (ICD-10 - K44.9) Track Other 11-14-2023 NoteSubjective Yoli Antunez . is a 67 y.o. male we follow for autonomic dysfunction, orthostatic hypotension. He has episodes of aphagia lasting 1-12 hours associated with presumed drop in BP. He has had expressive aphagia on tilt table testing at the [facility] Dec 2022 (see below). Duration about 12 hours Chief Complaint: Neurogenic orthostatic hypotension Fludrocortisone: no effective Pyridostigmine: side effects Effexor: not effective BP labile Highest BP 150/90mmhg Lowest BP 82/46mmhg Review of Systems Cardiovascular: Positive for near-syncope and syncope. Last syncope Dec 2022. On hay wagon. Okay it coming, did not get off wagon fast enough. Syncope. No trauma. [facility]. 24 hour observation. BP 80/40mmhg Over [...] expressive language aphagia. Lab Review: [facility] Tilt. * FINAL IMPRESSIONS * - [...] no improvement I consulted with Dr. Jimenez, fur glazer in clinic and decision made to have him evaluated in ED. I called the ED attending and reported the admission, to which she agreed he may need a stroke work up.[facility]11-06-2023 NoteHNO ID: [id number] Author: Joann Stark PA-C Service: ? Author Type: Physician Contact Lens Blocker And Cutter Type: Progress Notes Filed: 02/25/2023 2:52 PM Note Text: Skin Biopsy Procedure Note Skin Biopsy Accession Number: [id number] Biopsy Date: 02/25/2023 Referring physician: María Pearl [...] Procedure Note Procedure confirmed with provider and is support analyst. Yes, left leg 2 skin biopsies. The [...] home. Specimens were labeled and sent to [facility] Cutaneous Nerve Laboratory. Procedure was performed by: Joann Stark PA-C Assistance in supply/equipment preparation performed by: DAVID Downs Sign out is complete.[facility]11-06-2023 History of Present illness Narrative* Joann Stark PA-C - 02/25/2023 2:09 PM EST Skin Biopsy Procedure Note Skin Biopsy Accession Number: [id number] Biopsy Date: 02/25/2023 Referring physician: María Pearl [...] Procedure Note Procedure confirmed with provider and is support analyst. Yes, left leg 2 skin biopsies. The [...] home. Specimens were labeled and sent to [facility] Cutaneous Nerve Laboratory. Procedure was performed by: Joann Stark PA-C Assistance in supply/equipment preparation performed by: DAVID Downs Sign out is complete. documented in this encounterCleveland Clinic [facility]view Hospital10-17-2023 Miscellaneous Notes* Telephone Encounter - Shivani Ambriz RN - 02/05/2023 1:00 PM EDT Images from the original note were not included. María Pearl APRN.STARTING GATE DRIVER You 7 minutes ago (12:52 PM) This is a normal result. [place] YAMILA Carnes, RN * Telephone Encounter - Shivani Ambriz RN - 02/05/2023 12:48 PM EDT Images from the original note were not included. Copper: YAMILA Carnes, RN * Telephone Encounter - Aydee Hunter - 02/05/2023 12:06 PM EDT Scanned in results from [facility] for review documented in this encounterCleveland Clinic [facility]10-12-2023 History of Present illness Narrative* Yossi [...] and scan are done. documented in this encounterSycamore [facility] Center Work Phone: 1(639) 414-180110-12-2023 Instructions* Patient Instructions* Yossi Chen MD - 01/31/2023 3:00 PM EDT I will get stool culture and CT scan to figure out the reason for the abdominal pain and diarrhea documented in this encounterSycamore Medical Center Work Phone: 1(946) 209-925110-09-2023 Miscellaneous Notes* Telephone Encounter - Paul Burns RN - 01/28/2023 4:08 PM EDT Images from the original note were not included. María Pearl, BRENNA.STARTING GATE DRIVER You 6 hours ago (9:39 AM) I have a message out to headache clinic about adjusting his medication. YAMILA Cage, RN, BA documented in this encounterCleveland Clinic [facility] Hospital10-09-2023 Miscellaneous Notes* Telephone Encounter - Paul Burns RN - 01/28/2023 3:39 PM EDT [place] sent MCM to patient. Patient read. YAMILA Cage, RN, BA documented in this encounterCleveland Clinic [facility] Hospital10-09-2023 Miscellaneous Notes* Telephone Encounter - Paul Burns RN - 01/28/2023 10:43 AM EDT Images from the original note were not included. María Pearl APRN.NEETU You 15 minutes ago (10:27 AM) Thank you. Appears normal. [place] YAMILA Cage, RN, BA * Telephone Encounter - Paul Burns RN - 01/28/2023 9:58 AM EDT Images from the original note were not included. YAMILA Cage, RN, BA * Telephone Encounter - Aydee Hunter - 01/28/2023 9:36 AM EDT Scanned in results from [facility] for review documented in this encounterCleveland Clinic [facility]10-05-2023 NoteHNO ID: [id number] Author: Peggy Bravo RN Service: ? Author [...] Out: N/A Sign Out Discussion: Completed Briana mEmanuel RN Orders placed 01/23/23 by María Pearl APRN.CNP Allergies: Penicillins, Tikosyn [Dofetilide], and Vancomycin Test done in consult with María Pearl APRN.STARTING GATE DRIVER . Procedure Start Time: 1419 Height 198.1 [...] RN; Briana Emmanuel RN Procedure Finish Time: 1523[facility]10-[facility]-2023 NoteHNO ID: [id number] Author: María Pearl APRN.STARTING GATE DRIVER Service: ? 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 The lightheadedness and dizziness does NOT [...] follow with the headache clinic here at [facility]. On May 23, 2022 he did complete [...] by cardiology, Jackie Banks CNP, at the [facility]. Jackie had a concern for autonomic dysfunction. She placed Jamil on pyridostigmine, but he had significant diarrhea and it was thus discontinued. He has constant bilateral tinnitus. He states it sounds like an air gabriel. He has not seen ENT. He has a ILR and watchman. These have not revealed a cause for his lightheadedness or dizziness. He did see his fur glazer this week who felt his symptoms are [...] focal stenosis, occlusion, or aneurysmal dilatation. Complete wiyot of Michel. He is brought in today [...] not taking: Reported on (more content not included)...[facility]10-04-2023 NoteHNO ID: [id number] Author: Kristen Wagner OCCA Service: ? Author Type: Liner Machine Operator Helper Type: Progress Notes Filed: 01/23/2023 10:15 [...] How severe is this focusing problem? : ModerateAdena Health System 01-21-2023 NoteUT Electrophysiology Consult Note Reason for visit: dysautonomia HPI: Yoli Richelle Antunez Jr. is a 67 y.o. year [...] table scheduled as well. He has a [employer] loop and I reviewed his loop data, [...] no difficulty hearing, no (more content not included)...[facility]10-02-2023 NotePatient here for 1 mo follow up. He was started on Crestor and Ranexa by Dr. Gonsalez last month. He didn't start Crestor because my cholesterol is good . He did start Ranexa but doesn't think it's helping him with angina. Says he actually feels worse. He presented to [facility] last week for CVA-like symptoms but [...] light-headedness. All other systems reviewed and are negative.[facility] 12-31-2022 NoteHNO ID: [id number] Author: Sarbjit Richarsdon APRN.[facility] Service: ? Author Type: Nurse Practitioner Type: Progress Notes Filed: 12/31/2022 5:04 PM Note Text: [facility] Follow up visit December 31, 2022 [...] He was evaluated by Cardiology at the [facility] for syncopal episodes. Likely a [...] dizziness . put in in the front truck loader and unloader and helped him to the house - [...] essentially unremarkable including troponins and ECG 09/11/2022 [facility]- Cardiology - Jackie Banks NATIONAL ACCOUNT DIRECTOR wrote: I copied and pasted my initial consult note from [facility] date 07/20/2022 for continuity of care: Hx [...] one month ago by neurology [facility]. Recent MRA MRV. HPI: Syncope began [...] This Visit Referred back to [facility]; Headache 1 Onset: - Migraine headache s Location: frontal (occipital vertex) Quality/ (more content not included)...[facility]09-11-2023 History of Present illness Narrative* Sarbjit Richardson, LINUX ARCHITECT.STARTING GATE DRIVER - 12/31/2022 3:15 PM EDT [facility] Follow up visit December 31, 2022 [...] He was evaluated by Cardiology at the [facility] for syncopal episodes. Likely a [...] dizziness . put in in the front truck loader and unloader and helped him to the house - [...] essentially unremarkable including troponins and ECG 09/11/2022 [facility]- Cardiology - Jackie Banks NATIONAL ACCOUNT DIRECTOR wrote: I copied and pasted my initial consult note from [facility] date 07/20/2022 for continuity of care: Hx [...] one month ago by neurology [facility]. Recent MRA MRV. HPI: Syncope began [...] This Visit Referred back to [facility]; Headache 1 Onset: - Migraine headache [...] Date AAA (abdominal aortic aneurysm) without rupture ([facility]) Arthritis Atrial fibrillation/flutter CAD (coronary artery disease) CKD (chronic kidney disease) stage 3, GFR 30-59 ml/min ([facility]) Ex-smoker Gastric ulcer GERD (gastroesophageal reflux disease) Gout History of GI bleed HLD (hyperlipidemia) Hypertension 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 ADA treated with BiPAP Peripheral neuropathy Restless leg syndrome TIA (transient ischemic attack) x 2 ALLERGIES Allergen Reactions Penicillins Unknown Tikosyn [Dofetilide] Other: See Comments Aphasia, dizzy, muscle cramps Vancomycin Anaphylaxis MR neck / head angio 07/09/2022- at [facility] Impression No gross evidence for flow-limiting stenosis of bilateral extrarenal vertebral or carotid arteries accounting for extensive patient motion artifact. If persistent concern for an abnormality of the carotid or vertebral arteries, consider CTA if clinically indicated. Impression No focal stenosis, occlusion, or aneurysmal dilatation. Complete wiyot of Michel. CT brain 05/23/2022 Impression *Negative [...] osteopenia, and partially imaged atlantoaxial arthritic changes. Glass Vial Filler (topogram) images: No additional findings. HEADACHE SCORES: [...] articulation, and clear,coherent, and relevant. Short and half-way memory, cognition and general fund of knowledge [...] followed by aphasia. He was evaluated in [place] for syncope - felt it was neurocardiogenic [...] 6 months, PRN . Level of service: [facility] level 5 (40-54 min). Time spent 45 min on the day of service, which included preparing to see the patient, ehfg-kh-qqaq patient care, completing clinical documentation, obtaining and/or reviewing separately obtained history, performing a medically appropriate examination, counseling and educating the patient/family/caregiver, and ordering medications, tests, or procedures. Sarbjit Richardson APRN.NEETU Headache Section [facility] December 31, 2022 5:03 PM documented in this encounterCleveland Clinic [facility]09-08-2023 NotePatient here for follow [facility]. 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 and suddenly starting having chest pain, dizzniess, diaphoresis, and SOB.[facility]09-08-2023 NoteUTP CARDIOLOGY PROGRESS NOTE HPI: Yoli Peoples Harmony Del Toro. is a 67 y.o. male with a [...] is maintained on a (more content not included)...[facility]08-03-2023 NoteSend Summary: Discharge Summary Providers: Provider RoleProvider Name Radha Jorge Abraham PrimaryHohman, Jennifer Note Recipients: Radha Burris MD - [id number] [] Discharge: Summary: Admission Date: .21-Nov-2022 05:06:00 [...] discharge: Full Code Electronic Signatures: Sivan Costa (LINUX ARCHITECT-STARTING GATE DRIVER) (Signed 22-Nov-2022 12:13) Authored: Send Summary, Summary Content, Ongoing Care, DNR Status Yossi Chen) (Signed 22-Nov-2022 12:27) Authored: Summary Content, Ongoing Care, Note Completion Last Updated: 22-Nov-2022 12:27 by Yossi Chen)[facility] 11-21-2022 NotePost Operative Note: PreOp Diagnosis: symptomatic hiatal hernia Post-Procedure Diagnosis: same Procedure: 1. Laparoscopic repair of Type 3 paraesophageal hernia with Toupet wrap and gastroscopy 2. 3. 4. 5. Surgeon: April Resident/Fellow/Other Contact Lens Blocker And Cutter: Adrián/Elio Estimated Blood Loss (mL): none Specimen: [...] circumferentially. The retroesophageal window was created. The Randy drain was placed. I proceeded with mediastinal [...] esophagus to the right side. A lighted 56-Latvian bougie was placed. The shoeshine maneuver was [...] #1 Ethibond with a Tony-Ran in a cahnfk-bq-qiowc fashion. The liver retractor was removed. The [...] Completion Last Updated: 21-Nov-2022 13:27 by Yossi Chen)[facility] 11-21-2022 History of Present illness Rfcbdrosp62-qkfm-qpq patient who underwent laparoscopic repair of paraesophageal [...] it down withwater. Denies heartburn and acid reflux.-[facility] DO Work Phone: 1(364) 248-747808-02-2023 History of Present illness Narrative 67-year-old patient [...] reflux, heartburn and having less coughing with meal-[facility] Work Phone: 1(467) 328-503008-02-2023 NoteHistory & Physical Reviewed: I have reviewed [...] Completion Last Updated: 21-Nov-2022 07:15 by Yossi Chen)[facility] 11-16-2022 Miscellaneous Notes* Telephone Encounter - Jessica Scott - 11/16/2022 5:55 PM EDT Received faxed report of medical records done at . Uploaded via [employer], will be available in [employer] for review shortly. documented in this encounterCleveland Clinic [facility]07-03-2023 Miscellaneous Notes* Telephone Encounter - Sarbjit Richardson APRN.STARTING GATE DRIVER - 10/22/2022 4:33 PM EDT Opened in error Sarbjit Richardson APRN.NEETU documented in this encounterCleveland Clinic [facility]view Hospital06-29-2023 NoteHNO ID: [id number] Author: Michaela Polo RN Service: ? Author [...] dizziness. IV removed. Pt discharged from treatment room.[facility]06-29-2023 History of Present illness Narrative* Michaela Polo [...] treatment room. documented in this encounterCleveland Clinic Fairview Hospital06-26-2023 NotePROCEDURE DETAILS Preoperative Diagnosis: Sleep apnea, G47.30 Postoperative Diagnosis: Sleep Apnea Surgeon: Arabella Terry Resident/Fellow/Other Contact Lens Blocker And Cutter: None of these were associated with this [...] Completion Last Updated: 15-Oct-2022 11:11 by Arabella Terry)[facility]06-26-2023 Miscellaneous Notes* Op Note - Arabella Butt MD - 10/15/2022 11:02 AM EDT PROCEDURE DETAILS Preoperative Diagnosis: Sleep apnea, G47.30 Postoperative Diagnosis: Sleep Apnea Surgeon: Arabella Terry Resident/Fellow/Other Contact Lens Blocker And Cutter: None of these were associated with this [...] Arabella Terry) documented in this [facility] Work Phone: 1(300) 497-951706-26-2023 Note* Op Note - Arabella Butt MD - 10/15/2022 11:02 AM EDT PROCEDURE DETAILS Preoperative Diagnosis: Sleep apnea, G47.30 Postoperative Diagnosis: Sleep Apnea Surgeon: Arabella Terry Resident/Fellow/Other Contact Lens Blocker And Cutter: None of these were associated with this [...] Last Updated: 15-Oct-2022 11:11 by Arabella Terry) [facility] Work Phone: 1(497) 895-934706-06-2023 Chief complaint Narrative - Reported* An interactive audio and video telecommunication system which permits real time communications between the patient (at the originating site) and provider (at the distant site) was utilized to providethis telehealth service. * Verbal consent was requested and obtained from YOLI ANTUNEZ on this date, 09/25/2022 02:30 PM, for a telehealth visit. * Dysphagia follow-up RT-Yikgifullvktqv-Pbygpto Work Phone: 1(482) 162-455405-25-2023 History of Present illness Narrative* 67 year [...] more in his throat. [facility] his intermittent [facility]asia. Still awaiting manometry results. * 09/04/22: * Here for follow-up. Esophagram completed 08/10/22 with moderate hiatal hernia, possible inflammatorynarrowing at GEJ, also area of mucosal irregularity for which endoscopy was recommended. He had manometry placed under endoscopy on 08/30/22, overall esophagus appeared normal on their exam with gmovj0zn nodule at GEJ that was biopsied. Pathology [...] esophagus and pill sticking in the vallecula OG-Exrrpupbwjifnq-Jkcnnyp Work Phone: 1(251) [phone] NoteHNO ID: [id number] Author: Sarbjit Richardson APRN.STARTING GATE DRIVER Service: ? Author Type: Nurse Practitioner Type: Progress Notes Filed: 09/13/2022 11:43 AM Note Text: Headache Section [facility] Virtual Visit Follow up During this [...] visit. Either the patient or their legal paper sales representative has been informed of the risks [...] and sore throat after infusion. Jackie Banks NATIONAL ACCOUNT DIRECTOR wrote 07/20/2022: [facility] heart and vascular center cardiology clinic. Yoli Antunez is a pelasant 67 year old male referred to Dr Shukri Vilchis and the Syncope and Autonomic Disorders Clinic in the Heart and Vascular Center at the [facility] for an evaluation of syncope. Hx [...] one month ago by neurology [facility]. Recent MRA MRV. Assessment/Plan The primary [...] with treatment: Dura (more content not included)... [facility]05-16-2023 History of Present illness Narrative* 67 year [...] esophagus appeared normal on their exam with opuxb6ut nodule at GEJ that was biopsied. Pathology [...] esophagus and pill sticking in the vallecula PD-Ljjgmummkghmsc-Ofvvaqr Work Phone: 1(562) [phone] Chief complaint Narrative - Reported* An interactive audio and video telecommunication system which permits real time communications between the patient (at the originating site) and provider (at the distant site) was utilized to providethis telehealth service. * Verbal consent was requested and obtained from YOLI ANTUNEZ on this date, 09/04/2022 11:30 AM, for a telehealth visit. * Dysphagia follow-up LQ-Uhgojklazrjqjd-Tzxnfwe Work Phone: 1(275) 375-702005-11-2023 NotePatient Name: Yoli Antunez Procedure Date: 08/30/2022 7:32 AM Date of : 1955 Admit Type: Outpatient Site: [facility] Procedure Room 5 Ethnicity: Not or Race: White Attending MD: ELISEO Williamson, [id number] Procedure: Upper GI endoscopy Indications: Dysphagia for 5 years to both liquids and solids Patient Profile: This is a 67 year old male. Refer to note in patient chart for documentation of history and physical. Providers: ELISEO Williamson (Doctor), Jaylen Lo, RN (Nurse), Florentino De Dios, Log Cooker, Kristin Mcdaniels RN (Nurse) Referring: Radha Burris [...] specimen was done by the nurse and agricultural engineering technician using the patient's name and medical record number. Estimated blood loss was minimal. A single 3 mm nodule was found at the gastroesophageal junction, 39 cm from the incisors. Biopsies were taken with a cold forceps for histology. Verification of patient identification for the specimen was done by the nurse and agricultural engineering technician using the patient's name and medical [...] and technici (more content not included)...PROVATION - [id number] Reason for visit Narrative* An interactive audio and video telecommunication system which permits real time communications between the patient (at the originating site) and provider (at the distant site) was utilized to providethis telehealth service. * Verbal consent was requested and obtained from YOLI ANTUNEZ on this date, 08/13/2022 03:15 PM, for a telehealth visit. [facility] [address] [place] Work Phone: 1(254) 168-814204-11-2023 Chief complaint Narrative - Reported* An interactive audio and video telecommunication system which permits real time communications between the patient (at the originating site) and provider (at the distant site) was utilized to providethis telehealth service. * Verbal consent was requested and obtained from YOLI ANTUNEZ on this date, 07/31/2022 12:30 PM, for a telehealth visit. * Swallow QR-Ezsrtvuhxajjob-Lfjeoyb Work Phone: 1(562) [phone] History of Present illness Narrative* 67 year [...] esophagus and pill sticking in the vallecula DB-Rddclanmhtyavp-Wnamfit Work Phone: 1(615) 254-789104-10-2023 Miscellaneous Notes* Telephone Encounter - Jonathan Pascual [...] infusions 07/26/2022. documented in this encounterCleveland Clinic [facility]04-06-2023 NoteHNO ID: [id number] Author: Eleonora Cabral RN Service: ? Author [...] with infusion , instructed on 45 day follow-up.[facility]04-06-2023 History of Present illness Narrative* Eleonora Cabral [...] day follow-up. documented in this encounterCleveland Clinic [facility] Hospital04-03-2023 Miscellaneous Notes* Telephone Encounter - Fadumo Mckenzie - 07/23/2022 11:46 AM EDT Patient last seen on 05/31/22. Asked to follow up with Infusions. documented in this encounterCleveland Clinic [facility] Hospital03-24-2023 Miscellaneous Notes* Telephone Encounter - Sarbjit Richardson APRN.CNP - 07/13/2022 4:04 PM EDT There are no results in [facility] from [facility] in imaging. When did he have them done? Can they fax the results and send the disc. Sarbjit documented in this encounterCleveland Clinic [facility] Hospital02-13-2023 Miscellaneous Notes* Telephone Encounter - Sarbjit Richardson APRN.CNP - 06/04/2022 12:48 PM EST Orders for MRA/MRV to be mailed to patient. Sarbjit Richardson APRN.CNP documented in this encounterCleveland Clinic [facility]view Hospital02-09-2023 Instructions* Patient Instructions* Sarbjit Richardson APRN.CNP - 05/31/2022 9:01 AM EST Greater Occipital Nerve Block Article in [employer] Journal By: Bhavesh Boyd MD Many patients with chronic headache report that their pain typically arises from the neck or, more specifically, the base of the skull. Often that pain arises on one side or the other and extends forward to involve the top of the head, the sikhism, the forehead, the eye or some combination [...] give it at least one more try. https://americanheadachesociety.org/wp-content/uploads//Wlhyqkmdi-Pcvwb-L locks_August-2009.pdf documented in this encounterCleveland Clinic [facility] Hospital02-09-2023 History of Present illness Narrative* Sarbjit Richardson APRN.NEETU - 05/31/2022 8:00 AM EST Headache Section [facility] Follow up visit May 31, 2022 [...] unrevealing and negative. I sent patient a ISORG message with this information and we can [facility] to see if this is migrainous as [...] other than aphasia. He was [facility] for this previously (2020 note, migraine), and follows w/ Neurologist Dr. Wolff in [place]. 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 Glass Vial Filler (topogram) images: No additional findings. 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 Short and half-way memory, cognition and general fund of knowledge [...] Care Visit completed when applicable. Sarbjit Richardson APRN.STARTING GATE DRIVER The risks, benefits and anticipated outcomes of [...] which included preparing to see the patient, tlfi-wz-yzsp patient care, completing clinical documentation, obtaining and/or reviewing separately obtained history, performing a medically appropriate examination, counseling and educating the patient/family/caregiver, and ordering medications, tests, or procedures. Sarbjit Richardson APRN.NEETU Headache Section [facility] May 31, 2022 documented in this encounterCleveland Clinic [facility] Hospital09-16-2022 History of Present illness Narrative* Paul [...] discharge. Tad Corea MD Internal medicine, PGY-2 [facility], Jerry Lopez @TODAY@ 10:53 AM Attending Physician Statement I [...] MD Nephrology Attending Physician [facility] 01/05/2022 * Dariela Walker MD - 01/05/2022 10:40 AM EDT Images from the original note were not included. [facility] Office: [phone] Mehdi Mcallister DO, Meliton Willard DO, Vicente [...] Tono Braun CNP, Annie Quijano, KENYA, Brunilda Fuller, NEETU, Andria Rutherford, STARTING GATE DRIVER, Akila Franks, NEETU, Shivani Rascon, NEETU, Mayte Martinez CNP, Aliya Reyes PA-C, Esha Kumari, YAMILET, Monica Levy, KENYA, Marifer Dunne, STARTING GATE DRIVER, Rosie Longoria, NEETU, Nohelia Morris, NEETU [facility] IN-PATIENT SERVICE [facility] Progress Note Name: Yoli Antunez Acct: [id number] Room: [address] [place] [address] Day: 5 Admit Date: 12/31/2021 11:15 PM [...] improved to 2.5, bicarb 25 Brief History: 47-spiu-com-year-old with prior history of CKD 3, hypertension, prior TIA, paroxysmal A. fib, aortic root aneurysm presented with right lower quadrant and flank pain, initially started on 12/28/2021 when he was evaluated at [facility]. Imaging suggested possible epiploic appendicitis versus [...] type 12/31/2021 Yes EMELIA (acute kidney injury) ([facility]) 01/01/2022 Yes CKD (chronic kidney disease) stage 3, GFR 30-59 ml/min ([facility]) 01/01/2022 Yes Non-intractable vomiting with nausea 01/01/2022 Yes Jaundice 01/01/2022 Yes Lactic acid acidosis 01/01/2022 Yes Hyperglycemia 01/01/2022 Yes Paroxysmal A-fib ([facility]) 01/01/2022 Yes History of TIA (transient ischemic attack) 01/01/2022 Yes Apnea 01/01/2022 Yes History of kidney stones 01/01/2022 Yes Metabolic acidosis 01/03/2022 Yes History of peptic ulcer 01/01/2022 Yes Overview Signed 01/01/2022 2:21 AM by Darline Walden MD S/p egd at [facility] 08/2020 Plan: S/p cholecystectomy day3 -Continue Percocet [...] 94* -- Last 3 CBC: Recent Labs 01/02/2222 01/03/22 0547 01/04/22 0936 WBC 12.2* 12.5* [...] corrected by editing Spencer Grijalva MD MD, [facility] (), FACP 01/04/2022 1:31 PM [facility] * Dariela Walker MD - 01/04/2022 10:45 AM EDT Images from the original note were not included. [facility] Office: [phone] Mehdi Mcallister DO, Meliton Willard DO, Vicente [...] George MD, Octaviano Bolden MD, Julia Vasquez, STARTING GATE DRIVER, Joanne Hameed, [facility], Jazmine Huitron, [facility], Tono Braun, [facility], Annie Quijano, [facility], Brunilda Fuller, [facility], Adnria Rutherford, [facility], Akila Franks, [facility], Shivani Rascon, [facility], Mayte Martinez, [facility], DARNELL NelsonC, Esha Kumari, [facility], Monica Levy, [facility], Marifer Dunne, [facility], Rosie Longoria, [facility], Nohelia Morris, [facility] IN-PATIENT SERVICE [facility] Progress Note Name: Yoli Antunez Acct: [id number] Room: 0318/0318-01 Day: 4 Admit Date: 12/31/2021 11:15 PM PCP: Radha Price MD Code Status: Full Code Subjective: C/C: nausea,vomiting, fevers Interval History Status: improved. Patient indicates doing well no nausea vomiting. Continues to have left upper quadrant pain intermittently. No flatus or bowel movement yet . hemodynamically stable. Creatinine improved to 3.07 WBC 12.2 Brief History: 16-yxdc-bbi-year-old with prior history of CKD 3, hypertension, prior TIA, paroxysmal A. fib, aortic root aneurysm presented with right lower quadrant and flank pain, initially started on 12/28/2021 when he was evaluated at [facility]. Imaging suggested possible epiploic appendicitis versus [...] -1900 ml Labs: Hematology: Recent Labs 01/02/22 0501/03/22 0547 01/04/22 0936 [...] 25* CALCIUM 7.2* 6.9* 6.6* Recent Labs 01/02/2252101/03/22 0547 PROT 6.1* 6.7 LABALBU 2.9* 3.2* [...] Walden MD S/p egd at [facility] 08/2020 Plan: S/p cholecystectomy day2 -Continue Percocet [...] 83.7 PLT 150 170 BMP: Recent Labs 01/02/2252101/02/22 1716 01/03/22 0547 NA 141 142 138 [...] Progress Note PATIENT: YOLI ANTUNEZ CSN #: [id number] : 1955 ADMIT DATE: 12/31/2021 11:15 PM [...] RN CDS. Please call/text/PS with any questions; [phone]. Options provided: -- Sepsis, present on admission [...] 01/03/2022 4:35 PM * Zulemabaldomero Amita Ford, LINUX 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 - 01/03/2022 2:[address] [facility] Gastroenterology Progress Note Yoli Antunez is [...] results for input(s): LABIRON, TIBC, IRON, FERRITIN, IPZONMMD81, FOLATE, OCCULTBLD in the last 72 hours. [...] in the care of your patient. Janet Amita BRENNA Ford - NEETU [place], [place] Please note that this note was generated using a voice recognition dictation software. Although every effort was made to ensure the accuracy of this automated pole shaver helper, some errors in pole shaver helper may have occurred. Associated attestation - Juan David Marr MD - 01/04/2022 8:34 PM EDT GI Attending Attestation I have seen and examined the patient and reviewed the umaña elements of the history, physical exam findings and review of systems and discussed the care of this patient with Ms. Lemus NEETU Ford. I agree with the assessment, management plan and orders with Ms. Ford and primary team. Juan David Marr MD [facility]'s Gastroenterology [place], [place] * Dariela Walker MD - 01/03/2022 9:30 AM EDT Images from the original note were not included. [facility] Office: [phone] Mehdi Mcallister DO, Meliton Willard DO, Vicente [...] George MD, Octaviano Bolden MD, Julia Vasquez, STARTING GATE DRIVER, Joanne Hameed, STARTING GATE DRIVER, Jazmine Huitron, STARTING GATE DRIVER, Tono Braun, STARTING GATE DRIVER, Annie Quijano, DNP, Brunilda Fuller, STARTING GATE DRIVER, Andria Rutherford, STARTING GATE DRIVER, Akila Franks, STARTING GATE DRIVER, Shivani Rascon, STARTING GATE DRIVER, Mayte Martinez, STARTING GATE DRIVER, Aliya Reyes PA-C, Esha Kumari, [facility], Monica Levy, [facility], Marifer Dunne, STARTING GATE DRIVER, Rosie Longoria, STARTING GATE DRIVER, Nohelia Morris, [facility] IN-PATIENT SERVICE [facility] Progress Note Name: Yoli Antunez Acct: [id number] Room: [address] [place] [address] Day: 3 Admit Date: 12/31/2021 11:15 PM [...] improved, lipase improved to 250 Brief History: 70-olnq-efb-year-old with prior history of CKD 3, hypertension, prior TIA, paroxysmal A. fib, aortic root aneurysm presented with right lower quadrant and flank pain, initially started on 12/28/2021 when he was evaluated at [facility]. Imaging suggested possible epiploic appendicitis versus [...] Labs: Hematology: Recent Labs 01/01/22 0546 01/01/22 72601/02/2252101/03/22 0547 WBC -- 16.8* 12.2* 12.5* RBC -- 3.54* 3.64* 3.75* HGB -- 10.0* 10.2* 10.3* HCT -- 30.0* 30.4* 31.4* MCV -- 84.7 83.5 83.7 MCH -- 28.2 28.0 27.5 MCHC -- 33.3 33.6 32.8 RDW -- 14.5* 14.4 14.5* PLT -- 157 150 170 MPV -- 11.0 10.3 10.9 INR 1.2 -- -- -- Chemistry: Recent Labs 01/01/2232501/01/22 0546 01/01/2272601/01/22 1017 01/01/22 1207 01/02/2222 01/02/22 1716 01/03/22 0547 NA 139 140 [...] results found for: POCPH, PHART, PH, POCPCO2, UBM0ZKV, PCO2, POCPO2, PO2ART, PO2, POCHCO3, UEG9RBT, HCO3, NBEA, PBEA, BEART, BE, THGBART, THB, OCE2ILB, KRSL7JYD, M2QFBKBE, O2SAT, FIO2 Lab Results Component Value Date/Time [...] Walden MD S/p egd at [facility] 08/2020 Plan: S/p cholecystectomy day1 -Was started [...] 4320 [Urine:4300] LAB: CBC: Recent Labs 01/01/22 0727 01/02/22 0522 01/03/22 0547 WBC 16.8* 12.2* 12.5* HGB 10.0* 10.2* 10.3* HCT 30.0* 30.4* 31.4* MCV 84.7 83.5 83.7 PLT 157 150 170 BMP: Recent Labs 01/01/22 0727 01/02/22 0522 01/02/22 1716 NA 138 141 142 K 4.4 [...] from the original note were not included. [facility] Office: [phone] Mehdi Mcallister DO, Meliton Willard DO, Vicente [...] Hameed CNP, Jazmine Huitron, NEETU, Tono Braun, NEETU, Annie Quijano, KENYA, Brunilda Fuller, NEETU, Andria Rutherford, NEETU, Akila Franks, NEETU, Shivani Rascon, NEETU, Mayte Martinez, NEETU, Aliya Reyes PA-C, Esha Kumari, STATE DIRECTOR, Monica Levy, KENYA, Marifer Dunne, NEETU, Rosie Longoria, NEETU, Nohelia Morris, NEETU [facility] IN-PATIENT SERVICE [facility] Progress Note Name: Yoli Antunez Acct: [id number] Room: 0318/0318-01 IP Day: 2 Admit Date: 12/31/2021 11:15 [...] showed no hydronephrosis. Hemodynamically stable Brief History: 62-ogtv-yel-year-old with prior history of CKD 3, hypertension, prior TIA, paroxysmal A. fib, aortic root aneurysm presented with right lower quadrant and flank pain, initially started on 12/28/2021 when he was evaluated at [facility]. Imaging suggested possible epiploic appendicitis versus [...] IntraVENous 2 times per day Continuous Infusions: [Jun] sodium chloride [Jun] lactated ringers 150 mL/hr at 01/01/22 1232 PRN Meds: [JUN Hold] HYDROmorphone OR [JUN Hold] HYDROmorphone, [JUN Hold] ondansetron OR [JUN Hold] ondansetron, [Jun] sodium chloride flush, [JUN Hold] sodium chloride [...] Recent Labs 01/01/22 0546 01/01/22 0727 01/02/22 05 WBC -- 16.8* 12.2* RBC -- 3.54* 3.64* HGB -- 10.0* 10.2* HCT -- 30.0* 30.4* MCV -- 84.7 83.5 MCH -- 28.2 28.0 MCHC -- 33.3 33.6 RDW -- 14.5* 14.4 PLT -- 157 150 MPV -- 11.0 10.3 INR 1.2 -- -- Chemistry: Recent Labs 01/01/2232501/01/2254501/01/2272601/01/22 1017 01/01/22 1207 01/02/22521 NA 139 140 [...] 18 18 17 19 -- Recent Labs 01/01/2232501/01/2254501/01/2272601/02/22521 PROT 5.6* 5.5* 5.8* 6.1* LABALBU 3.2* [...] results found for: POCPH, PHART, PH, POCPCO2, HCT3OMJ, PCO2, POCPO2, PO2ART, PO2, POCHCO3, LEA2VDE, HCO3, NBEA, PBEA, BEART, BE, THGBART, THB, HAF6ULI, YXIS7AGO, C1KYGKQE, O2SAT, FIO2 Lab Results Component Value Date/Time [...] type 12/31/2021 Yes EMELIA (acute kidney injury) ([facility]) 01/01/2022 Yes CKD (chronic kidney disease) stage 3, GFR 30-59 ml/min ([facility]) 01/01/2022 Yes Non-intractable vomiting with nausea 01/01/2022 Yes Jaundice 01/01/2022 Yes Lactic acid acidosis 01/01/2022 Yes Hyperglycemia 01/01/2022 Yes Paroxysmal A-fib ([facility]) 01/01/2022 Yes History of TIA (transient ischemic attack) 01/01/2022 Yes Apnea 01/01/2022 Yes History of kidney stones 01/01/2022 Yes History of peptic ulcer 01/01/2022 Yes Overview Signed 01/01/2022 2:21 AM by Darline Walden MD S/p egd at [facility] 08/2020 Plan: S/p cholecystectomy day0 - Increase [...] Islas MD - 01/02/2022 9:29 AM EDT [facility] Yoli Antunez is a [...] and IMAGING: CBC Recent Labs 01/01/22 0727 01/02/22521 WBC 16.8* 12.2* HGB 10.0* 10.2* HCT 30.0* 30.4* MCV 84.7 83.5 MCHC 33.3 33.6 RDW 14.5* 14.4 PLT 157 150 Immature PLTs No results found for: PLTFLUORE ANEMIA STUDIES No results for input(s): LABIRON, TIBC, IRON, FERRITIN, AYWZENHH05, FOLATE, OCCULTBLD in the last 72 hours. [...] Rachel Islas MD Internal medicine resident, PGY1 [place], [place] Please note that this note was generated using a voice recognition dictation software. Although every effort was made to ensure the accuracy of this automated pole shaver helper, some errors in pole shaver helper may have occurred. Associated attestation - Juan [...] confirmed. Leonel Matos MD * Sara Villalobos [facility] - 01/01/2022 10:23 AM EDT [...] original note were not included. Occupational Therapy [facility] Occupational Therapy Not Seen Note DATE: 01/01/2022 [...] in November 09 and it is a [employer] device model m301 LUX-DX. MRI notified. documented [facility] Work Phone: 1(696) 862-492509-16-2022 Hospital course Narrative* Dariela Walker MD - 01/05/2022 2:37 PM EDT Images from the original note were not included. [facility] Office: [phone] Mehdi Mcallister DO, Meliton Willard DO, Vicente [...] Brunilda Fuller CNP, Andria Rutherford, NEETU, Akila Franks, NEETU, Shivani Rascon, NETEU, Mayte Martinez, NEETU, Aliya Reyes PA-C, Esha Kumari, YAMILET, Monica Levy, KENYA, Marifer Dunne, NEETU, Rosie Longoria, NEETU, Nohelia Morris, NEETU [facility] IN-PATIENT SERVICE [facility] Discharge Summary Patient ID: Yoli Antunez : 1955 ACCOUNT: [id number] Patient's PCP: Radha Price MD Admit Date: [...] Discharged Condition: good Hospital Stay: Hospital Course: 51-xwkg-zum-year-old with prior history of CKD 3, hypertension, prior TIA, paroxysmal A. fib, aortic root aneurysm presented with right lower quadrant and flank pain, initially started on 12/28/2021 when he was evaluated at [facility]. Imaging suggested possible epiploic appendicitis versus [...] Discharge plan: Disposition: Home Physician Follow Up: [facility] [address] [facility] [address] Schedule an appointment as soon as possible for a visit on 01/16/2022 For wound re-check post op from your Lap Ivy Elio Campos MD [address] [facility] [address] Follow up in 1 month(s) Diet: regular [...] Your Medications These medications were sent to [place], [place] - [address] [place] [address] - [phone] - [phone] [facility] [address] ciprofloxacin 500 MG tablet dilTIAZem 120 MG [...] in this patient'scare. documented in this encounterB[facility] Work Phone: 1(165) 127-171009-14-2022 Hospital Discharge instructions* Discharge Instructions* Sudheer Foote [...] be called to the nurse line at [phone] and please leave a message. * Attachments The following attachments cannot be sent through Care Everywhere. * Pancreatitis: Acute: General Info (Lao) documented in this encounterBON [facility] Work Phone: 1(425) 531-858807-28-2022 NotePROCEDURE: XR FOOT LT MIN 3 VIEWS [...] Electronically authenticated by: DONNELL DU Date: 2021-11-16 08:26[facility]06-13-2022 Evaluation note* Encounter Date Diagnosis Assessment [...] to call the office if symptoms return Track Other 05-11-2022 Evaluation note* Encounter Date Diagnosis [...] - G89.29) Continue with current treatment plan Track Other 04-14-2022 Evaluation note* Encounter Date Diagnosis [...] - G89.29) Continue with current treatment plan Track Other [id number] History of Present illness Narrative* Frances Sam CT - 05/01/2021 8:30 AM EST Radiology Service Progress Note PATIENT NAME: Yoli Antunez DATE OF SERVICE: May 01, 2021 TIME: 8:21 AM PATIENT IDENTITY VERIFICATION COMPLETED USING TWO (2) IDENTIFIERS: Name and Date of confirmedby patient verbally. FALL SCREENING: Has the patient had 2 falls in the last year or 1 fall with injury or currently using an Ambulatory Assistive Device (Walker, Cane, Wheelchair, Crutches, etc.)? No PATIENT GENDER DATA: Male PATIENT RELEVANT IMPLANT DATA REVIEWED: Yes RADIOLOGY DEPARTMENT: CT; Exam(s) Completed: Chest PERIPHERAL IV DATA: Not applicable SIGNED BY: OLIVIA Sanchez May 01, 2021 8:21 AM documented [facility] History of Present illness Narrative* Dysphagia with [...] for complaint except as noted in HPI. ST-K[facility]zje[facility]esxwr-Hvpqqmq[facility] [address] Work Phone: 1(261) 805-965606-01-2020 History of Present illness Narrative* Dysphagia with [...] for complaint except as noted in HPI. UD-Txnzpzzhrarjsv-Bkinbif Voice Work Phone: 1(480) 958-273506-01-2020 History of Present illness Narrative* 67 year old man Dysphagia with MBS was performed in September 2019 which showed pharyngeal dysphagia. Heis tolerating a regular diet. He has stable weight MBS from 2019 -shows reduced base of tongue retraction, poor pharyngeal wall squeeze, poor relaxation of UES, no change with head turn or chin tuck,prior 2019 esophagram with slow clearing of the [...] for complaint except as noted in HPI. BM-Bwbiqmmimvalcb-Wxjgwlc Work Phone: 1(794) 503-589006-01-2020 History of Present illness Narrative* Dysphagia with [...] for complaint except as noted in HPI. -[facility] [address] Work Phone: [phone] 368-148401-30-2019 History and physical note Author Charlene Soria [facility] April 16, 2023 10:45am Note Date/Time April 16, 2023 10:45am [facility] [address] [place] [address] Gastroenterology H&P Signed Patient: Yoli Antunez Jr MR#: [id number] : 1955 Acct:[id number] Age/Sex: 67 / M Adm Date: 3 Loc: Room: Type: [facility] Attending Dr: Charlene Soria MD Copies to: [...] signed by Charlene Soria MD> 04/16/23 1045 [facility] Work Phone: Consult note* Clinical Note Date No Information [facility] Work Phone: Discharge summary* Clinical Note Date No Information [facility] Work Phone: Evaluation noteNo [facility] [employer] Other Evaluation note* Diagnosis Gall stone pancreatitis- [...] Metabolic acidosis Acidosis documented in this encounter [facility] Work Phone: evaluation note* Diagnosis Chronic migraine without aura, intractable, without status migrainosus- Primary Aphasia Other specified transient cerebral ischemias [facility]* Diagnosis Chronic migraine without aura, with intractable migraine, so stated, with status migrainosus- Primary [facility] this encounter [facility]* Diagnosis Chronic migraine without aura, with intractable migraine, so stated, with status migrainosus- Primary [facility] encounter [facility]* Diagnosis Autonomic dysfunction- Primary Unspecified disorder of autonomic nervous system Dizzy spells Dizziness and giddiness documented in this encounter [facility]* Diagnosis Diarrhea, unspecified type- Primary Left lower quadrant abdominal pain documented in this encounter [facility] Work Phone: Evaluation note* Diagnosis Disturbance of skin sensation- Primary documented in this encounter [facility] note* Diagnosis Left lower quadrant abdominal pain documented in this encounter [facility] Work Phone: Evaluation note* Diagnosis Dysphagia, oropharyngeal [...] Obstructive sleep apnea (adult) (pediatric) 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, unspecified [facility] (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 of antithrombotics/antiplatelets 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 Personal history of transient ischemic attack (TIA), and cerebral infarction without residual deficits Personal history of nicotine dependence Allergy status to penicillin documented in this encounter [facility] Work Phone: Evaluation note* Diagnosis Obstructive sleep [...] joint, bilateral Personal history of nicotine dependence [facility] (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 of aspirin Allergy status to penicillin Allergy status to other antibiotic agents documented in this encounter [facility] Work Phone: Evaluation noteNo assessment information available [facility] Work Phone: Evaluation note* Diagnosis Orthostatic hypotension- Primary [place]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) documented [facility] this encounter [facility]* Diagnosis Shortness of breath documented in this encounter [facility] note* Type Assessment Date No Information [facility] Work Phone: History and physical note* Clinical Note Date No Information [facility] Work Phone: History general Narrative - Reported* [...] 01/08 Surgical History left ureteral stent placement Surgical History steel removed from left eye 04/23 Hospitalization History see above Hospitalization History cardiac Track Other History of Present illness Narrative* Patient [...] and contact clinician with any concerns. [facility] [address] [place] Work Phone: History of Present illness Narrative* Mr. ANTUNEZ , 1955, referred for an initial consultation with me but established with this practice, with a long history of waking up feeling unrefreshed, excessive daytime fatigue. * [place] Sleepiness Scale Score is 16 /24. Fatigue [...] / 20 * Nasal Obstruction VAS- 0/10 FM-Esxpftthqibcgp-Vobyh MAC1 302 Work Phone: Hospital Discharge instructions [...] -Follow up pathology -Follow up in the [facility] Work Phone: Instructions* Date Instruction Additional Infor mation No Information [facility] Work Phone: Progress note* Clinical Note Date No Information [facility] Work Phone: Reason for referral (narrative)* Reason For Referral No Information [facility] Work Phone: Summary Purpose Family History Unknown [...] Not Specified History of stroke Unknown Unknown Family Member Type Diagnosis Age At Onset No Information Advance Directives Documents on File Type Date Recorded Patient House Registry Rn Expl anation ACP-Advance Directive ACP-Power of Digital Asset Manager Latest Code Status on File Code Status [...] the code status chosen by the patient/surrogate. Directive Yes / No Effective Date File Name No Information History of Present Illness * Keyonna Freitas [...] Referred By Contac t Referred To Contact CT IMAGING Diagnoses Shortness of breath Procedures CT CHEST WO IVCON CAT SCAN OF CHEST Cameron Harmon MD [address] [place] [address] [address] [place] [address] Referral ID Status Reason Start Date Expiration Date V isits Requested Visits Authorized [id number] Closed Auto-Generate d Referral 04/05/2021 05/05/2022 1 1 Specialty Diagnoses / Procedures Referred By Contac t Referred To Contact Radiology Diagnoses Left lower quadrant abdominal pain Procedures CT abdomen pelvis w IV contrast Yossi Chen MD [address] [facility] [address] [place] [address] Referral ID Status Reason Start Date Expiration Date Visits Requested Visits Authorized [id number] Authorized Perform Procedure 3 07/30/2023 1 1 Specialty Diagnoses / Procedures Referred By Contac t Referred To Contact Neurology Diagnoses Autonomic dysfunction Dizzy spells Procedures CONSULT TO NEUROLOGY OFFICE/OUTPATIENT [facility] HIGH MDM 60-74 MINUTES Dobrowski, Sarbjit J, LINUX ARCHITECT.STARTING GATE DRIVER [address] [place] [address] Referral ID Status Reason Start Date Expiration Date Visits Requested Visits Authorized [id number] Authorized PCP Requested Referral 12/31/2022 12/31/2023 1 1 Specialty Diagnoses / Procedures Referred By Contac t Referred To Contact MR IMAGING Diagnoses Chronic migraine without aura, intractable, without status migrainosus Aphasia Other specified transient cerebral ischemias Procedures MRV BRAIN WO IVCON MRA, HEAD W/O CONTRAST Sarbjit Richardson, LINUX ARCHITECT.STARTING GATE DRIVER [address] [place] [address] Mr Imaging Referral ID Status Reason Start Date Expiration Date Visits Requested Visits Authorized [id number] Pending Review Auto-Generat ed Referral 05/31/2022 06/30/2023 1 1 Specialty Diagnoses / Procedures Referred By Contac t Referred To Contact MR IMAGING Diagnoses Chronic migraine without aura, intractable, without status migrainosus Aphasia Other specified transient cerebral ischemias Procedures MRA BRAIN WO IVCON MRA, HEAD W/O CONTRAST Sarbjit Richardson, LINUX ARCHITECT.STARTING GATE DRIVER [address] [place] [address] Mr Imaging Referral ID Status Reason Start Date Expiration Date Visits Requested Visits Authorized [id number] Pending Review Auto-Generat ed Referral 05/31/2022 06/30/2023 [...] over 30 Minutes, ONCE, 1 dose, On Sat10/18/22 at 1400, EXP: Administer with 0.2 micron filter. New Bag/Syringe/Bottle 10/18/2022 2:02 PM EDT 100 mg 200 mL/hr Chief Complaint SwallowSwallowSwallowFollow up visit for inability to tolerate CPAPSwallow Patient is here for post opPatient is here for follow up Chief Complaint and Reason for Visit Chief Complaint Diarrhea Chief Complaint Diarrhea/Hiatal Ramiro is//Ref Ahmet Diarrhea R10.9 R19.7 Additional Source Comments (unrecognized [...] section and content) DATE CREATED AUTHOR 05/02/2018 [facility] DATE CREATED AUTHOR AUTHOR'S ORGANIZ ATION 03/12/2020 [facility] DATE CREATED AUTHOR AUTHOR'S ORGANIZ ATION 10/28/2020 [facility] DATE CREATED AUTHOR AUTHOR'S ORGANIZ ATION 05/25/2021 [facility] DATE CREATED AUTHOR AUTHOR'S ORGANIZ ATION 12/23/2021 [facility] DATE CREATED AUTHOR AUTHOR'S ORGANIZ ATION 01/17/2022 [facility] DATE CREATED AUTHOR AUTHOR'S ORGANIZ ATION 04/18/2022 [facility] dical Specialist DATE CREATED AUTHOR AUTHOR'S ORGANIZ ATION 06/07/2022 [facility] DATE CREATED AUTHOR AUTHOR'S ORGANIZ ATION 08/28/2022 [facility] DATE CREATED AUTHOR AUTHOR'S ORGANIZ ATION 10/26/2022 [facility] DATE CREATED AUTHOR AUTHOR'S ORGANIZ ATION 12/14/2022 [facility] DATE CREATED AUTHOR AUTHOR'S ORGANIZ ATION 12/14/2022 [employer] DATE CREATED AUTHOR AUTHOR'S ORGANIZ ATION 12/18/2022 [facility] DATE CREATED AUTHOR AUTHOR'S ORGANIZ ATION 02/02/2023 [facility] DATE CREATED AUTHOR AUTHOR'S ORGANIZ ATION 02/06/2023 [facility] DATE CREATED AUTHOR AUTHOR'S ORGANIZ ATION 06/02/2023 [facility] DATE CREATED AUTHOR AUTHOR'S ORGANIZ ATION 06/11/2023 [facility] DATE CREATED AUTHOR AUTHOR'S ORGANIZ ATION 12/26/2023 [facility] DATE CREATED AUTHOR AUTHOR'S ORGANIZ ATION 12/28/2023 [facility] DATE CREATED AUTHOR AUTHOR'S ORGANIZ ATION 01/21/2024 [facility] dical Specialists EPIC Reason for Visit (unrecogniz ed section and content) Reason Comments Infusion Headache Specialty Diagnoses / Procedures Referred By Yeny t Referred To Contact Diagnoses Chronic migraine without aura, with intractable migraine, so stated, with status migrainosus Sarbjit Richardson, LINUX ARCHITECT.STARTING GATE DRIVER [address] [place] [address] Neur Headache Main [address] [place] [address] Referral ID Status Reason Start Date Expiration Date V isits Requested Visits Authorized [id number] Authorized 05/31/2022 08/29/2022 99 99 Status Reason Specialty Diagnoses / Procedures Referred By Contact Referred To Contact Pending Review Infusion Therapy Diagnoses Migraine, unspecified, intractable, without status migrainosus Procedures HI INJ MAGNESIUM SULFATE HI LIDOCAINE INJECTION HI DEXAMETHASONE SODIUM PHOS HI DRUGS UNCLASSIFIED INJECTION Mayelin Wolff MD [address] [place] [address] Mal Op Infusion [address] [place] [address] Reason Comments Headache Reason Comments Received Outside Medical Records Reason Comments Results [facility] Reason Comments Follow-up Diarrhea Since hiatal hernia surgery. Reason Comments Results [facility] Specialty Diagnoses / Procedures Referred By Yeny thurston Referred To Contact Radiology Diagnoses Left lower quadrant abdominal pain Procedures CT abdomen pelvis w IV contrast Yossi Chen MD [address] [place] [address] Referral ID Status Reason Start Date Expiration Date Visits Requested Visits Authorized [id number] Authorized Perform Procedure 3 07/30/2023 1 1 Reason Comments Other EGDANS - Emailed pre p on 08-23-2022 Reason Comments Other DRUG INDUCED SLEEP E NDOSCOPY Reason Comments Follow Up Reason Comments Radiology CT Specialty Diagnoses / Procedures Referred By Yeny t Referred To Contact CT IMAGING Diagnoses Shortness of breath Procedures CT CHEST WO IVCON CAT SCAN OF CHEST Cameron Harmon MD [address] [place] [address] [address] [place] [address] Referral ID Status Reason Start Date Expiration Date V isits Requested Visits Authorized [id number] Closed Auto-Generate d Referral 04/05/2021 05/05/2022 1 1 Ordered Prescriptions (unrec ognized section and content) [...] Prophylaxis 0049 (Stopped - Provider: Ritu Sosa RN)08 (New Bag - Provider: Roly Delong RN)09 [...] RN)2204 (Given - Provider: Agata Garcia RN) 05 (Given - Provider: Agata Garcia RN)135 (Given [...] 1315 1327 (New Bag - Provider: Soco Hdez, CARLOS) 1523 (Stopped - Provider: Soco Hdez RN) [...]
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 Relationship Specialty Start Date End Date Radha Burris MD [address] [place] [address] PCP - General Internal Medicine 01/14/20 Esther Grey, DO [address] [place] [address] Physician Electrophysiology 01/26/20 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 Relationship Specialty Start Date End Date Radha Burris [address] [place] [phone] PCP - General Family Medicine 10/09/17 Elian Ceballos MD [address] [place] [address] Primary Staff Physician Cardiology 12/01/20 Herminia Roland MD [address] [facility] [place] [address] Primary Staff Physician Cardiology 02/01/21 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 Relationship Specialty Start Date End Date Radha Burris [address] [place] [address] [phone] PCP - General Family Medicine 10/09/17 Elian Ceballos MD [address] [place] [address] Primary Staff Physician Cardiology 12/01/20 Herminia Roland MD [address] [facility] [place] [address] Primary Staff Physician Cardiology 02/01/21 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 Relationship Specialty Start Date End Date FatumaRadha Tono [address] [place] [phone] PCP - General Family Medicine 10/09/17 Elian Ceballos MD [address] [place] [address] Primary Staff Physician Cardiology 12/01/20 Herminia Roland MD [address] [place] [address] Primary Staff Physician Cardiology 02/01/21 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 Relationship Specialty Start Date End Date FatumaRadha cantu [address] [place] [phone] PCP - General Family Medicine 10/09/17 Elian Ceballos MD [address] [place] [address] Primary Staff Physician Cardiology 12/01/20 Herminia Roland MD [address] [place] [address] Primary Staff Physician Cardiology 02/01/21 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 Relationship Specialty Start Date End Date FatumaRadha cantu [address] [place] [phone] PCP - General Family Medicine 10/09/17 Elian Ceballos MD [address] [place] [address] Primary Staff Physician Cardiology 12/01/20 Herminia Roland MD [address] [place] [address] Primary Staff Physician Cardiology 02/01/21 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 Relationship Specialty Start Date End Date Radha Burris [address] [place] [phone] PCP - General Family Medicine 10/09/17 Elian Ceballos MD [address] [place] [address] Primary Staff Physician Cardiology 12/01/20 Herminia Roland MD [address] [place] [address] Primary Staff Physician Cardiology 02/01/21 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 Relationship Specialty Start Date End Date Radha Burris [address] [place] [phone] PCP - General Family Medicine 10/09/17 Elian Ceballos MD [address] [place] [address] Primary Staff Physician Cardiology 12/01/20 Herminia Roland MD [address] [place] [address] Primary Staff Physician Cardiology 02/01/21 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 Relationship Specialty Start Date End Date FatumaRadha [address] [place] [phone] PCP - General Family Medicine 10/09/17 Elian Ceballos MD [address] [place] [address] Primary Staff Physician Cardiology 12/01/20 Herminia Roland MD [address] [place] [address] Primary Staff Physician Cardiology 02/01/21 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 Relationship Specialty Start Date End Date Radha Burris [address] [place] [address] PCP - General Family Medicine 10/09/17 Elian Ceballos MD [address] [place] [address] Primary Staff Physician Cardiology 12/01/20 Herminia Roland MD [address] [place], [place] [id number] Primary Staff Physician Cardiology 02/01/21 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 Relationship Specialty Start Date End Date Radha Burris [address] [place] [address] PCP - General Family Medicine 10/09/17 Elian Ceballos MD [address] [place] [address] Primary Staff Physician Cardiology 12/01/20 Herminia Roland MD [address] [place] [address] Primary Staff Physician Cardiology 02/01/21 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 Relationship Specialty Start Date End Date Radha Burris [address] [place] [address] PCP - General Family Medicine 10/09/17 Elian Ceballos MD [address] [place] [address] Primary Staff Physician Cardiology 12/01/20 Herminia Roland MD [address] [place] [address] Primary Staff Physician Cardiology 02/01/21 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 Relationship Specialty Start Date End Date Radha Burris MD [address] [id number] PCP - General 03/22/20 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 Relationship Specialty Start Date End Date Radha Burris [address] [place] [address] PCP - General Family Medicine 10/09/17 Elian Ceballos MD [address] [place], [place] [id number] Primary Staff Physician Cardiology 12/01/20 Herminia Roland MD [address] [place] [address] Primary Staff Physician Cardiology 02/01/21 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 Relationship Specialty Start Date End Date Radha Burris [address] [place] [phone] PCP - General Family Medicine 10/09/17 Elian Ceballos MD [address] [place], [place] [id number] Primary Staff Physician Cardiology 12/01/20 Herminia Roland MD [address] [place] [address] Primary Staff Physician Cardiology 02/01/21 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 Relationship Specialty Start Date End Date Radha Burris MD [address] [place] [address] PCP - General 03/22/20 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 Relationship Specialty Start Date End Date Radha Burris MD [address] [place] [address] PCP - General 03/22/20 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 Relationship Specialty Start Date End Date Radha Burris MD [address] [place] [address] PCP - General 03/22/20 Team Status: Active Member Role Status Dates Radha Burris MD Primary Care Provide r Active Team Status: Inactive Member Role Status Dates Radha Burris MD Primary Care Provide r Active Charlene Soria MD Attending Provider Active 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 Relationship Specialty Start Date End Date Radha Burris MD [address] [place] [address] PCP - General Internal Medicine 01/14/20 Esther Grey DO [address] [place] [address] [place] [address] Physician Electrophysiology 01/26/20 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 Relationship Specialty Start Date End Date Radha Burris [address] [place] [phone] PCP - General Family Medicine 10/09/17 Elian Ceballos MD [address] [place] [address] Primary Staff Physician Cardiology 12/01/20 Herminia Roland MD [address] [place] [address] Primary Staff Physician Cardiology 02/01/21 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 Relationship Specialty Start Date End Date Radha Burris MD [address] [place] [address] PCP - ACO Reach 09/13/22 Radha Burris MD [address] [place] [address] PCP - General Family Medicine 09/20/22 Team [...] June 10, 2023 End: June 10, 2023 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 Relationship Specialty Start Date End Date Radha Burris MD [address] [place] [address] PCP - General Internal Medicine 01/14/20 Esther Grey DO [address] [place] [address] Physician Electrophysiology 01/26/20 Name Effective Dates (start - stop) Status Members No Information Source Comments (unrecognize d section and content) In the event this informatio n is protected by the Federal Confidentiality of Alcohol and Drug Abuse Patient Records regulations: The Federal rules restrict any use of the information to criminally investigate or prosecute any alcohol or drug abuse patient.[facility] the event this information is protected by the Federal Confidentiality of Alcohol and Drug Abuse Patient Records regulations: The Federal rules restrict any use of the information to criminally investigate or prosecute any alcohol or drug abuse patient.[facility] the event this information is protected by the Federal Confidentiality of Alcohol and Drug Abuse Patient Records regulations: The Federal rules restrict any use of the information to criminally investigate or prosecute any alcohol or drug abuse patient.[facility] the event this information is protected by the Federal Confidentiality of Alcohol and Drug Abuse Patient Records regulations: The Federal rules restrict any use of the information to criminally investigate or prosecute any alcohol or drug abuse patient.[facility] the event this information is protected by the Federal Confidentiality of Alcohol and Drug Abuse Patient Records regulations: The Federal rules restrict any use of the information to criminally investigate or prosecute any alcohol or drug abuse patient.[facility] the event this information is protected by the Federal Confidentiality of Alcohol and Drug Abuse Patient Records regulations: The Federal rules restrict any use of the information to criminally investigate or prosecute any alcohol or drug abuse patient.[facility] the event this information is protected by the Federal Confidentiality of Alcohol and Drug Abuse Patient Records regulations: The Federal rules restrict any use of the information to criminally investigate or prosecute any alcohol or drug abuse patient.[facility] the event this information is protected by the Federal Confidentiality of Alcohol and Drug Abuse Patient Records regulations: The Federal rules restrict any use of the information to criminally investigate or prosecute any alcohol or drug abuse patient.[facility] the event this information is protected by the Federal Confidentiality of Alcohol and Drug Abuse Patient Records regulations: The Federal rules restrict any use of the information to criminally investigate or prosecute any alcohol or drug abuse patient.[facility] the event this information is protected by the Federal Confidentiality of Alcohol and Drug Abuse Patient Records regulations: The Federal rules restrict any use of the information to criminally investigate or prosecute any alcohol or drug abuse patient.[facility] the event this information is protected by the Federal Confidentiality of Alcohol and Drug Abuse Patient Records regulations: The Federal rules restrict any use of the information to criminally investigate or prosecute any alcohol or drug abuse patient.[facility] the event this information is protected by the Federal Confidentiality of Alcohol and Drug Abuse Patient Records regulations: The Federal rules restrict any use of the information to criminally investigate or prosecute any alcohol or drug abuse patient.[facility] the event this information is protected by the Federal Confidentiality of Alcohol and Drug Abuse Patient Records regulations: The Federal rules restrict any use of the information to criminally investigate or prosecute any alcohol or drug abuse patient.[facility] the event this information is protected by the Federal Confidentiality of Alcohol and Drug Abuse Patient Records regulations: The Federal rules restrict any use of the information to criminally investigate or prosecute any alcohol or drug abuse patient.[facility] the event this information is protected by the Federal Confidentiality of Alcohol and Drug Abuse Patient Records regulations: The Federal rules restrict any use of the information to criminally investigate or prosecute any alcohol or drug abuse patient.[facility] the event this information is protected by the Federal Confidentiality of Alcohol and Drug Abuse Patient Records regulations: The Federal rules restrict any use of the information to criminally investigate or prosecute any alcohol or drug abuse patient.[facility] the event this information is protected by the Federal Confidentiality of Alcohol and Drug Abuse Patient Records regulations: The Federal rules restrict any use of the information to criminally investigate or prosecute any alcohol or drug abuse patient.[facility] FOR RECORDS PERTAINING TO PATIENTS WHO [...] BE BASED ON THE PRIMARY CLINICAL RECORDS. [facility] [employer] [facility]. provides no warranty or guarantee of the accuracy or completeness of information in this document.
--- NOTE | 2024-01-25 07:43 | XR_ITS ---
The [address] [address] Patient Name: YOLI ANTUNEZ MRN: [id number] date: 1955 Sex: M Assigned Patient Location: ER Current Patient Location: ER Accession/Order Number: [id number] Exam Date: 01/25/2024 07:51 Report Date: 01/25/2024 08:42 At the request of: CONCHA PHILLIPS Procedure: XR chest 1V CLINICAL HISTORY: SOB/CP. EXAMINATION: Portable AP upright chest: 01/25/2024 at 0744 hours. COMPARISON: Portable chest 05/17/2023. FINDINGS: Previously seen loop recording device along the left anterior hemithorax is no longer visualized. There is a bipolar pacemaker since the previous examination with electrode leads in right atrium and right ventricle. The visualized osseous structures are normal. The trachea is midline. The aorta has normal contour. The heart size seems normal. There are a few calcified lymph nodes in the right hilum. There is no pneumothorax. XR/XR chest 1V IMPRESSION: 1. No acute cardiopulmonary disease. 2. Satisfactory deployment of pacemaker leads since the previous examination without pneumothorax. Electronically authenticated by: DAYAMI CASTRO Date: 01/25/2024 08:42
--- NOTE | 2024-01-25 07:43 | ECG_ITS ---
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
--- NOTE | 2024-01-25 07:44 | ED.CHESTPAI1 ---
HPI - Chest Pain General Chief Complaint: Chest Pain Stated Complaint: CHEST PAIN, DIZZY Time Seen by Provider: 01/25/24 07:40 Source: patient Mode of arrival: walk-in Limitations: no limitations History of Present Illness HPI narrative: 68-year-old male presents for chest pain. It woke him up from sleep at about 3 AM, 4-1/2 hours ago. It has been continuous since then and it feels like somebody sitting on him and its on the left side of his chest and goes to his left arm he has a history of atrial fibrillation but has not had A-fib since 4 years ago when he had his third cardiac ablation. He was taken off of all of his cardiac medications by his doctor when he had his pacemaker placed about a year ago. He has had no fever or cough. He feels short of breath if he moves around. Does not complain of back pain. Related Data Home Medications ?Medication ?Instructions ?Recorded ?Confirmed benazepril 10 mg tablet 10 mg PO DAILY 01/16/23 01/16/23 calcium carbonate 500 mg PO BID 01/16/23 01/25/24 levothyroxine 150 mcg tablet 150 mcg PO .COMPLEX 01/16/23 01/25/24 levothyroxine 175 mcg tablet 175 mcg PO DAILY 01/16/23 01/25/24 pramipexole 1 mg tablet 2 mg PO QAM 01/16/23 01/16/23 aspirin 81 mg tablet,delayed 81 mg PO DAILY 05/17/23 01/25/24 release (Adult Low Dose Aspirin) budesonide 3 mg 9 mg PO DAILY 05/17/23 05/17/23 capsule,delayed,extended release calcitriol 0.25 mcg capsule 0.25 mcg PO DAILY 05/17/23 05/17/23 ergocalciferol (vitamin D2) 1,250 50,000 unit PO QWEEK 05/17/23 05/17/23 mcg (50,000 unit) capsule topiramate 25 mg tablet 25 mg PO BID 05/17/23 05/17/23 Previous Rx's ?Medication ?Instructions ?Recorded doxycycline monohydrate 100 mg 100 mg PO BID 7 days #14 caps 10/05/23 capsule Allergies Allergy/AdvReac Type Severity Reaction Status Date / Time Penicillins Allergy Intermediate Verified 10/05/23 08:40 vancomycin Allergy Intermediate Verified 10/05/23 08:40 TYCOSYN Allergy Intermediate Uncoded 10/05/23 08:40 Review of Systems ROS Narrative A ten point review of systems is negative except as noted above. [facility] Medical History (Updated 01/25/24 @ 09:33 by Satinder Willard MD) Angina at rest ?I20.89 - Other forms of angina pectoris (ICD-10) Atrial fibrillation ?I48.91 - Unspecified atrial fibrillation (ICD-10) Pacemaker ?Z95.0 - Presence of cardiac pacemaker (ICD-10) Chronic kidney disease ?N18.9 - Chronic kidney disease, unspecified (ICD-10) Social History Smoking status: Former smoker Little interest or pleasure in doing things: not at all Feeling down, depressed, or hopeless: not at all Exam Narrative Exam Narrative: Nurses note and vital signs reviewed and patient is not hypoxic. General: The patient appears in no acute respiratory distress. He appears uncomfortable Skin: Warm, dry, no pallor noted. There is no rash noted. Head: Normocephalic, atraumatic Eye: Normal conjunctiva, no drainage Ears, Nose, Mouth, and Throat: oral mucosa is moist. Nares patent. Cardiovascular: Irregularly irregular, tachycardic Respiratory: Patient is in no distress, no accessory muscle use, lungs are clear to auscultation, no wheezing, rales or rhonchi Back: non-tender GI: Soft and nontender Musculoskeletal: The patient has no evidence of calf tenderness, no pitting edema, symmetrical pulses noted bilaterally Neurological: A&O, normal speech Psychiatric: Cooperative Constitutional Vital Signs, click to edit/add: Last Vital Signs Temp 97.7 F 01/25/24 07:28 Pulse 97 H 01/25/24 09:00 Resp 15 01/25/24 09:00 BP 132/81 01/25/24 09:00 Pulse Ox 96 01/25/24 09:00 O2 Del Method Room Air 01/25/24 07:28 Course Vital Signs Vital signs: Vital Signs Temperature 97.7 F 01/25/24 07:28 Pulse Rate 124 H 01/25/24 07:28 Respiratory Rate 18 01/25/24 07:28 Blood Pressure 140/103 H 01/25/24 07:28 Pulse Oximetry 99 01/25/24 07:28 Oxygen Delivery Method Room Air 01/25/24 07:28 Temperature 97.7 F 01/25/24 07:28 Pulse Rate 97 H 01/25/24 09:00 Respiratory Rate 15 01/25/24 09:00 Blood Pressure 132/81 01/25/24 09:00 Pulse Oximetry 96 01/25/24 09:00 Oxygen Delivery Method Room Air 01/25/24 07:28 MDM - Chest Pain MDM Narrative Medical decision making narrative: The patient presented with A-fib and RVR. He has not had A-fib for 4 years, since his third cardiac ablation. 2 sets of troponin are negative. He was given IV Cardizem and placed on a drip. His heart rate has slowed down into the 90s and he remains in atrial fibrillation. He is being admitted to ICU. Treatment diagnosis and disposition were discussed with the patient. Differential Diagnosis Differential diagnosis: Likely pneumothorax, unstable angina pectoris, atypical chest pain, st elevation myocardial infarction, chest pain and other (Atrial fibrillation) Lab Data Attestation: I reviewed the patient's lab results. Labs: Lab Results 01/25/24 01/25/24 Range/Units 07:40 08:37 WBC 10.5 (4.0-11.0) 10^3/uL RBC 5.33 (4.70-6.10) 10^6/uL Hgb 14.8 (14.0-18.0) g/dL Hct 45.1 (42.0-54.0) % MCV 84.6 (80.0-94.0) fL MCH 27.8 (25.9-34.0) pg MCHC 32.8 (29.9-35.2) g/dL RDW 14.6 (11.0-15.0) % Plt Count 231 (150-450) 10^3/uL MPV 10.2 (9.5-13.5) fL Neut % (Auto) 72.5 (43.0-75.0) % Lymph % (Auto) 20.0 L (20.5-60.0) % [place] % (Auto) 5.0 (1.7-12.0) % Eos % (Auto) 1.3 (0.9-7.0) % Baso % (Auto) 0.5 (0.2-2.0) % Neut # (Auto) 7.6 H (1.4-6.5) 10^3/uL Lymph # (Auto) 2.1 (1.2-3.8) 10^3/uL [place] # (Auto) 0.5 (0.3-0.8) 10^3/uL Eos # (Auto) 0.1 (0.0-0.7) 10^3/uL Baso # (Auto) 0.1 (0.0-0.1) 10^3/uL Abs Immat Gran (auto) 0.07 H (0.00-0.03) 10^3/uL Imm/Tot Granulo (auto) 0.7 H (0.0-0.5) % Sodium 141 (136-145) mmol/L Potassium 3.7 (3.5-5.1) mmol/L Chloride 104 (98-107) mmol/L Carbon Dioxide 19.3 L (21.0-32.0) mmol/L Anion Gap 21.4 BUN 27.0 H (7.0-18.0) mg/dL Creatinine 1.46 H (0.70-1.30) mg/dL Est GFR ( Amer) 58 L (>=60 mL/min/1.73m^2) Est GFR (Non-Af Amer) 48 L (>=60 mL/min/1.73m^2) BUN/Creatinine Ratio 18.5 Glucose 152 H (74-106) mg/dL Calcium 6.7 L (8.5-10.1) mg/dL Troponin I High Sens 4.0 <4.0 L (4.0-76.1) pg/mL Imaging Data Chest x-ray: Radiologist's impression: ITS Impressions Chest X-Ray 01/25/24 07:43 IMPRESSION: 1. No acute cardiopulmonary disease. 2. Satisfactory deployment of pacemaker leads since the previous examination without pneumothorax. Electronically authenticated by: DAYAMI CASTRO Date: 01/25/2024 08:42 ECG Data Attestation: I personally reviewed and interpreted this ECG as follows: (EKG on my interpretation shows atrial fibrillation with a rate of 127. Slight ST depression present in V5 and V6 and to a lesser degree V4.) Heart Score History: Highly Suspicious ECG: Sign. ST Depression Age: >65 years Risk Factors: 1 or 2 Risk Factors Troponin: <Normal Limit Total Heart Score Recommendations & Risks:: 7 Critical Care Time Critical Care Time Critical Care Time: Yes Total Critical Care Time: 35 Attestation: Due to the high probability of sudden and clinically significant deterioration in the patient's condition he/she required the highest level of my preparedness to intervene urgently I provided critical care time including documentation time, medication orders and management, reevaluation, vital sign assessment, ordering and reviewing of lab tests, ordering and reviewing of x-ray studies, and admission orders. Aggregate critical care time is 35 minutes including only time during which I was engaged in work directly related to his/her care and did not include time spent treating other patients simultaneously. Discharge Plan Discharge Chief Complaint: Chest Pain Clinical Impression: Atrial fibrillation with RVR, Chest pain Patient Disposition: Admitted as Observation Time of Disposition Decision: 09:33 Condition: Good
[2024-01-25] MEDS: DILTIAZEM HCL 25 MG/5 ML VIAL 10 MG IV (07:47)
[2024-01-25 07:58] LABS: Basophils Absolute Auto 0.1 10^3/uL (0.0-0.1); Basophils Percent Auto 0.5 % (0.2-2.0); Eosinophils Absolute Auto 0.1 10^3/uL (0.0-0.7); Eosinophils Percent Auto 1.3 % (0.9-7.0); Hematocrit 45.1 % (42.0-54.0); Hemoglobin 14.8 g/dL (14.0-18.0); Immature Granulocytes Abs Auto 0.07 10^3/uL (0.00-0.03); Immature Granulocytes Pct Auto 0.7 % (0.0-0.5); Lymphocytes Absolute Auto 2.1 10^3/uL (1.2-3.8); Mean Corpuscular HGB Conc 32.8 g/dL (29.9-35.2); Mean Corpuscular Hemoglobin 27.8 pg (25.9-34.0); Mean Corpuscular Volume 84.6 fL (80.0-94.0); Mean Platelet Volume 10.2 fL (9.5-13.5); Monocytes Absolute Auto 0.5 10^3/uL (0.3-0.8); Neutrophils Absolute Auto 7.6 10^3/uL (1.4-6.5); Neutrophils Percent Auto 72.5 % (43.0-75.0); Platelet Count 231 10^3/uL (150-450); Red Blood Count 5.33 10^6/uL (4.70-6.10); Red Cell Distribution Width 14.6 % (11.0-15.0); White Blood Count 10.5 10^3/uL (4.0-11.0)
--- NOTE | 2024-01-25 08:02 | PC.NURSE ---
Patient hit call light and informed me that he had lost his voice which has happened before during Marika. No weakness noted. Patient also told me his evtremities have been slightly numb since the chest pain started last night. MD notified no orders.
[2024-01-25 08:13] LABS: Anion Gap 21.4; BUN Creatinine Ratio 18.5; Calcium 6.7 mg/dL (8.5-10.1); Carbon Dioxide 19.3 mmol/L (21.0-32.0); Chloride 104 mmol/L (98-107); Estimated GFR (African America 58 (>=60 mL/min/1.73m^2); Estimated GFR (Non-African Ame 48 (>=60 mL/min/1.73m^2); Glucose 152 mg/dL (74-106); Potassium 3.7 mmol/L (3.5-5.1); Sodium 141 mmol/L (136-145)
[2024-01-25] MEDS: dilTIAZem HCL 125 MG in 0.9 % SODIUM CHLORIDE 100 ML IV (08:44)
[2024-01-25 08:58] LABS: Troponin I High Sensitivity <4.0 pg/mL (4.0-76.1)
--- NOTE | 2024-01-25 10:24 | ECG_ITS ---
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
[2024-01-25 11:03] LABS: TSH W/ REFLEX FT4 0.638 uIU/mL (0.358-3.740)
--- OUTSIDE RECORDS SUMMARY | 2024-01-25 12:18 | XMS_ITS | CCD ---
Author Organization [facility] Inform ion Partnership [facility] Care Team Providers Care Occ Med Physician Name Role Phone CLAIR MATT Unavailable Unavailable RADHA BURRIS Unavailable Unavailable Chris Luong Unavailable Unavailable Fatuma, Ritu Unavailable Unavailable Terrell Her Unavailable Unavailable Terrell Her Unavailable Unavailable Phillip Escobar Unavailable Unavailable Warren Burrisssica Unavailable Unavailable RADHA PRICE Primary Care Un available MAYELIN WOLFF Referring Unavailable Radha Price [facility] PROVIDER, UNKNOWN Attending Unavailable PROVIDER, [...] Butt, Dr. Arabella Siddiqi Admitting Unavailable Rika Btut, Dr. Arabella Siddiqi Attending Unavailable [...] Joiner Attending U navailable Fatuma, Dr. Radha eMna Primary Care Unavail able Sayon, Dr. Sy [...] Pr ovider MD Charlene Soria Attending Provider [phone] Radha Burris MD Primary Care Provider Matilda [...] PEARL Attending Unavailable Radha Burris MD Unavailable [phone] Radha Burris MD Primary Care Provider Radha [...] Translations: [amoxicillin] Drug Allergy 01-31-[address] [facility] (20 sources) Penicillins; Translations: [Penicillins] drug allergy 09-13-19 Rash [facility] Repository (14 sources) Penicillin; Translations: [PENICILLIN] Drug Allergy 06-22-19 22 Unknown [facility] (1 source) Penicillin Drug Allergy 11-05-19 [facility] Repository (20 sources) dofetilide; Translations: [Tikosyn CAPS] Drug Allergy 08-25-19 22 Other: See Comments, Unknown [facility] (4 sources) Penicillins Propensity to adverse reactions to drug 09-13-19 Unknown, Other [facility] Work Phone: (20 sources) Penicillins Drug Allergy 09-13-19 Unknown [facility] Work Phone: (1 source) dofetilide Drug Allergy 06-04-19 23 [facility] Repository (1 source) Penicillins Drug allergy (disorder) 07-29-19 15 [facility] Repository (6 sources) Vancomycin; Translations: [VANCOMYCIN] Drug Allergy 03-07-20 22 Hives [facility] Repository (20 sources) Vancomycin; Translations: [Vancomycin HCl CAPS] Drug Allergy 03-07-20 22 Anaphylaxis, Itching, Rash [facility] (8 sources) Vancomycin HCl in Dextrose SOLN; Translations: [Vancomycin HCl in Dextrose SOLN] Allergy to drug (finding) -Otolaryngolog y-[facility] Work Phone: (7 sources) Vancomycin; Translations: [VANCOMYCIN HCL] Drug Allergy 01-31-[address] [facility] Work Phone: (7 sources) Vancomycin Hcl In Water; Translations: [VANCOMYCIN HCL IN WATER] Propensity to adverse reactions 01-31-[address] [facility] Work Phone: (1 source) dofetilide Drug Allergy 08-25-19 22 Dizziness, Unknown [facility] (1 source) dofetilide Drug Allergy 04-12-20 [facility] Repository (1 source) Penicillins Drug allergy (disorder) 03-20-20 23 [facility] Repository (1 source) Vancomycin Drug Allergy 04-12-20 [facility] Repository Medications Current Medications Medication Drug Class(es) [...] every week ergocalciferol (Vitamin D-2) 1.25 MG (65144 UT) capsule Take 1 capsule (1,250 mcg) by mouth 1 (one) time per week. 0 10/08/2022 Active Start: 01-10-2022 take 1 capsule by mo [facility] every week Vitamin D (Ergocalciferol) 1.25 MG (77774 UT) Oral Capsule TAKE 1 CAPSULE BY [...] Start: 07-17-2022 take 1 capsule by mo [facility] at dinner Omeprazole 20 MG Oral Capsule [...] Start: 01-15-2020 take 1 capsule by mo [facility] once daily omeprazole (PRILOSEC) 40 MG capsule [...] disintegrating tablet 4 mg polyethylene glycol 3350 [id number] mg / potassium chloride 2970 mg / sodium bicarbonate 6740 mg / sodium chloride 5860 mg / sodium sulfate 68595 mg powder for oral solution (7 sources) [...] Comment on above: [facility] 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; 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 specified disorders [...] 10-01-2022 Chronic Other aftercare (1 source) 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; Translations: [OTH DETENTION CURRENT DRUG THERAPY] Onset: 3 Episodic Other aftercare (1 source) [facility] (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 of anticoagulants; Translations: [DETENTION CURRNT USE ANTICOAGULANTS] Onset: 3 Episodic Other aftercare (4 sources) 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; Translations: [LINEMAN A CLASS CURRENT USE OF ASPIRIN] Onset: 3 Episodic Other aftercare (1 source) Patient encounter status; Translations: [[facility] (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 of antithrombotics/antiplat elets] 09-07-2022 Episodic Other aftercare (2 sources) Long-term current use of aspirin; Translations: [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] 09-07-2022 Episodic Other [...] 09-13-2020 10-01-2022 Episodic Other aftercare (1 source) 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 of antithrombotics/anti platelets; Translations: [[place] [...] [facility] Office Visiton 12-25-2023 Follow-up visit [id number] Fr Harmony freda Peoples 1955 M Date Provider Department Center 12/25/2023 NIKKI QUEEN Family History Problem Relation Age of Onset Hypertension Mother Cancer Mother Stroke Mother Hypertension Father Aortic aneurysm Father Cancer Father Aortic aneurysm Paternal Grandfather Sudden Neg Hx Family Status - Relation Status Age at Mother Father Paternal Grandfather Neg Hx Level of Service:37677 [place] OFFICE/OUTPATIENT ESTABLISHED MOD MDM 30 MIN Normal [facility] 36on 10-22-2023 36 Patient called and s tates that he is having a lot of dizzy spells since starting the Ranexa you prescribed. Patient would like to know if he can stop this and if their would be something else you would like to prescribe. Please advise [facility] Telephoneon 10-22-2023 Telephone [phone] Fr camden Antunezomaricoty Peoples Jr. 1955 M Date Provider Department Center 10/22/2023 SHUKRI READ Family History Problem Relation Age of Onset Hypertension Mother Cancer Mother Stroke Mother Hypertension Father Aortic aneurysm Father Cancer Father Aortic aneurysm Paternal Grandfather Sudden Neg Hx Family Status - Relation Status Age at Mother Father Paternal Grandfather Neg Hx Normal [facility] Office Visiton 10-10-2023 Follow-up visit [id number] Fr camden Antunezomaricoty Peoples Jr. 1955 M Date Provider Department Center 10/10/2023 SHUKRI READ Family History Problem Relation Age of Onset Hypertension Mother Cancer Mother Stroke Mother Hypertension Father Aortic aneurysm Father Cancer Father Aortic aneurysm Paternal Grandfather Sudden Neg Hx Family Status - Relation Status Age at Mother Father Paternal Grandfather Neg Hx Level of Service:07140 [place] OFFICE/OUTPATIENT ESTABLISHED LOW MDM 20 MIN Normal [facility] ANESon 08-30-2023 ANES ------- Attestation signed by Nikki Lopez MD at 08/30/2023 10:49 AM Nikki Lopez MD, MPH, [facility], [facility], [facility] Interventional Cardiology Pager Email: [email or web address] Patient: Yoli Richelle Antunez Jr. Procedure Information Date/Time: 08/30/23 1030 Procedure: Coronary angiography (Left) Location: [facility] APPRAISER 3 / [facility] (Cath) Providers: Nikki Lopez [...] fellow and attending. Additional Equipment Requests Normal [facility] BASIC METABOLIC PANELon 05-1 -2023 Anion gap [Moles/Vol] 13 mmol/L Normal 7-20 [facility] Comment on above: Performed By: #### L [id number] ####[facility] (BEAKER)[address] [place] [address] Calcium [Mass/Vol] 7.9 mg/dL Low 8.6-10.3 [facility] Comment on above: Performed By: #### L [id number] ####[facility] (BEAKER)[address] [place] [address] Chloride [Moles/Vol] 106 mmol/L Normal 98-107 [facility] Comment on above: Performed By: #### L [id number] ####[facility] ([facility])[address] [place] [address] CO2 [Moles/Vol] 25 mmol/L Normal 21-31 [facility] Comment on above: Performed By: #### L [id number] ####[facility] ([facility])[address] [place] [address] Creatinine [Mass/Vol] 1.30 mg/dL Normal 0.70-1.30 [facility] Comment on above: Performed By: #### L [id number] ####[facility] ([facility])[address] [place] [address] GLOMERULAR FILTRATION RATE ML/MIN/1.73 SQ M.PREDICTED 59.1 mL/min/1.73m*2 Low >60.0 [facility] Comment on above: Result Comment: [facility]???s estimated glomerular filtration rate (eGFR) will [...] of individuals. Performed By: #### L [id number] ####[facility] ([facility] [place] [address] Glucose [Mass/Vol] 96 mg/dL Normal 70-100 [facility] Comment on above: Performed By: #### L [id number] ####[facility] ([facility] [place] [address] Potassium [Moles/Vol] 4.2 mmol/L Normal 3.5-5.1 [facility] Comment on above: Performed By: #### L [id number] ####[facility] (BEAKER)[address] [place] [address] Sodium [Moles/Vol] 140 mmol/L Normal 136-145 [facility] Comment on above: Performed By: #### L [id number] ####[facility] (BEAKER)[address] [place] [address] Urea nitrogen [Mass/Vol] 23 mg/dL Normal 7-25 [facility] Comment on above: Performed By: #### L [id number] ####[facility] (BEAKER)[address] [place] [address] UREA NITROGEN/CREATININE (MASS RATIO) IN SER/PLAS 17.7 Normal [facility] Comment on above: Performed By: #### L [id number] ####[facility] ([facility] [place] [address] CBCon 08-30-2023 Erythrocyte distribution width (RBC) [Ratio] 14.6 % Normal 11.5-15.0 [facility] Comment on above: Performed By: #### L [id number] #### [facility] ([facility] [address] [place] [address] ERYTHROCYTE MEAN CORPUSCULAR HEMOGLOBIN CONCENTRATION (G/DL) BY AUTOMATED 32.6 g/dL Normal 32.0-35.0 [facility] Comment on above: Performed By: #### L [id number] #### [facility] (BEAKER) [address] [place] [address] Hematocrit (Bld) [Volume fraction] 42.9 % Normal 39.0-55.0 [facility] Comment on above: Performed By: #### L [id number] #### [facility] (BEAKER) [address] [place] [address] Hemoglobin (Bld) [Mass/Vol] 14.0 g/dL Normal 13.0-17.0 [facility] Comment on above: Performed By: #### L [id number] #### [facility] (BEAKER) [address] [place] [address] MCH (RBC) [Entitic mass] 27.7 pg Normal 27.0-33.0 [facility] Comment on above: Performed By: #### L [id number] #### [facility] ([facility]) [address] [place] [address] MCV (RBC) [Entitic vol] 84.8 fL Normal 82.0-98.0 [facility] Comment on above: Performed By: #### L [id number] #### [facility] ([facility]) [address] [place] [address] PLATELETS (10*3/UL) IN BLOOD AUTOMATED COUNT 203 10*3/uL Normal 150-400 [facility] Comment on above: Performed By: #### L [id number] #### [facility] ([facility]) [address] [place] [address] RBC (Bld) [#/Vol] 5.06 10*6/uL Normal 4.20-5.70 [facility] Comment on above: Performed By: #### L [id number] #### [facility] ([facility]) [address] [place] [address] WBC (Bld) [#/Vol] 6.49 10*3/uL Normal 4.00-10.60 [facility] Comment on above: Performed By: #### L [id number] #### [facility] ([facility]) [address] [place] [address] [facility] 08-30-2023 ------- Attestation signed by Nikki Lopez MD at 08/30/2023 10:49 AM Nikki Lopez MD, MPH, FACC, [facility] [place] Interventional Cardiology Pager Email: [email or web address] H&P reviewed. The patient was examined and there are no changes to the H&P. Hx of CAD, now with multiple episodes of angina pectoris. Will proceed with coronary angiogram for further assessment. Procedure's details, risks and benefits discussed with the patient and he's agreeable. [facility] NURSNOTEon 08-30-2023 NURSNOTE RN educated pt on d/ c instructions. RN encouraged pt to voice any questions or concerns. Pt verbalizes no questions or concerns at this time. Pt was wheeled off of unit with all of belongings. [facility] Orders Onlyon 08-23-2023 Orders Only [id number] Fr freda Antunez Jr. 1955 M Date Provider Department Center 08/23/2023 GOLD [facility] Family History Problem Relation Age of Onset Hypertension Mother Cancer Mother Stroke Mother Hypertension Father Aortic aneurysm Father Cancer Father Aortic aneurysm Paternal Grandfather Sudden Neg Hx Family Status - Relation Status Age at Mother Father Paternal Grandfather Neg Hx [facility] Office Visiton 08-22-2023 Follow-up visit [id number] Fr freda Antunez Jr. 1955 M Date Provider Department Center 08/22/2023 SHUKRI READ [facility] Family History Problem Relation Age of Onset Hypertension Mother Cancer Mother Stroke Mother Hypertension Father Aortic aneurysm Father Cancer Father Aortic aneurysm Paternal Grandfather Sudden Neg Hx Family Status - Relation Status Age at Mother Father Paternal Grandfather Neg Hx Level of Service:12492 [place] OFFICE/OUTPATIENT ESTABLISHED LOW MDM 20 MIN [facility] Office Visiton 08-14-2023 Follow-up visit [id number] Fr Harmony freda Peoples . 1955 M Date Provider Department Center 08/14/2023 3848-COLLIN GONSALEZ Family History Problem Relation Age of Onset Hypertension Mother Cancer Mother Stroke Mother Hypertension Father Aortic aneurysm Father Cancer Father Aortic aneurysm Paternal Grandfather Sudden Neg Hx Family Status - Relation Status Age at Mother Father Paternal Grandfather Neg Hx Level of Service:29291 [place] OFFICE/OUTPATIENT ESTABLISHED LOW MDM 20 MIN Normal [facility] Office Visiton 07-18-2023 Follow-up visit [id number] JeseniamisaelFr jordi freda Peoples . 1955 M Date Provider Department Center 07/18/2023 166YANDEL BARTH Family History Problem Relation Age of Onset Hypertension Mother Cancer Mother Stroke Mother Hypertension Father Aortic aneurysm Father Cancer Father Aortic aneurysm Paternal Grandfather Sudden Neg Hx Family Status - Relation Status Age at Mother Father Paternal Grandfather Neg Hx Level of Service:31486 [place] OFFICE/OUTPATIENT ESTABLISHED MOD MDM 30 MIN Reason for Visit and Comments: Palpitations [582234] Atrial Fibrillation [80] Syncope [506] s/p pacemaker [Other] Wound Care [617] Normal [facility] Office Visiton 07-11-2023 Follow-up visit [id number] HarmonyFr freda Peoples . 1955 M Date Provider Department Center 07/11/2023 166YANDEL BARTH Family History Problem Relation Age of Onset Hypertension Mother Cancer Mother Stroke Mother Hypertension Father Aortic aneurysm Father Cancer Father Aortic aneurysm Paternal Grandfather Sudden Neg Hx Family Status - Relation Status Age at Mother Father Paternal Grandfather Neg Hx Level of Service:97339 [place] OFFICE/OUTPATIENT ESTABLISHED MOD MDM 30 MIN Reason for Visit and Comments: Palpitations [850888] Wound Check [490152] Normal [facility] BASIC METABOLIC PANELon 06-20 Anion gap [Moles/Vol] 13 mmol/L Normal 7-20 [facility] Comment on above: Performed By: #### L [id number] #### [facility] (BEAKER) [address] [place] [address] Calcium [Mass/Vol] 7.4 mg/dL Low 8.6-10.3 [facility] Comment on above: Performed By: #### L [id number] #### [facility] [address] [place] [address] Chloride [Moles/Vol] 105 mmol/L Normal 98-107 [facility] Comment on above: Performed By: #### L [id number] #### [facility] ([facility]) [address] [place] [address] CO2 [Moles/Vol] 26 mmol/L Normal 21-31 [facility] Comment on above: Performed By: #### L [id number] #### [facility] ([facility]) [address] [place] [address] Creatinine [Mass/Vol] 1.28 mg/dL Normal 0.70-1.30 [facility] Comment on above: Performed By: #### L [id number] #### [facility] ([facility]) [address] [place] [address] GLOMERULAR FILTRATION RATE ML/MIN/1.73 SQ M.PREDICTED 60.2 mL/min/1.73m*2 Normal >60.0 [facility] Comment on above: Result Comment: [facility]???s estimated glomerular filtration rate (eGFR) will [...] individuals. Performed By: #### L [id number] #### [facility] ([facility]) [address] [place] [address] Glucose [Mass/Vol] 88 mg/dL Normal 70-100 [facility] Comment on above: Performed By: #### L [id number] #### [facility] ([facility]) [address] [place] [address] Potassium [Moles/Vol] 4.0 mmol/L Normal 3.5-5.1 [facility] Comment on above: Performed By: #### L [id number] #### [facility] ([facility]) [address] [place] [address] Sodium [Moles/Vol] 140 mmol/L Normal 136-145 [facility] Comment on above: Performed By: #### L [id number] #### [facility] ([facility]) [address] [place] [address] Urea nitrogen [Mass/Vol] 21 mg/dL Normal 7-25 [facility] Comment on above: Performed By: #### L [id number] #### [facility] ([facility]) [address] [place] [address] UREA NITROGEN/CREATININE (MASS RATIO) IN SER/PLAS 16.4 Normal [facility] Comment on above: Performed By: #### L [id number] #### [facility] ([facility]) [address] [place] [address] CBC WITH AUTO DIFFERENTIALon 07-09-2023 Basophils (Bld) [#/Vol] 0.05 10*3/uL Normal 0.00-0.20 [facility] Comment on above: Performed By: #### L [id number] #### [facility] ([facility]) [address] [place] [address] Basophils/100 WBC (Bld) 0.7 % Normal 0.0-1.0 [facility] Comment on above: Performed By: #### L [id number] #### [facility] ([facility]) [address] [place] [address] Eosinophils (Bld) [#/Vol] 0.22 10*3/uL Normal 0.00-0.50 [facility] Comment on above: Performed By: #### L [id number] #### [facility] ([facility]) [address] [place] [address] Eosinophils/100 WBC (Bld) 3.1 % Normal 0.0-6.0 [facility] Comment on above: Performed By: #### L [id number] #### [facility] ([facility]) [address] [place] [address] Erythrocyte distribution width (RBC) [Ratio] 14.4 % Normal 11.5-15.0 [facility] Comment on above: Performed By: #### L [id number] #### [facility] ([facility]) [address] [place] [address] ERYTHROCYTE MEAN CORPUSCULAR HEMOGLOBIN CONCENTRATION (G/DL) BY AUTOMATED 33.0 g/dL Normal 32.0-35.0 [facility] Comment on above: Performed By: #### L [id number] #### [facility] ([facility]) [address] [place] [address] Hematocrit (Bld) [Volume fraction] 43.7 % Normal 39.0-55.0 [facility] Comment on above: Performed By: #### L [id number] #### [facility] ([facility]) [address] [place] [address] Hemoglobin (Bld) [Mass/Vol] 14.4 g/dL Normal 13.0-17.0 [facility] Comment on above: Performed By: #### L [id number] #### [facility] ([facility]) [address] [place] [address] Immature granulocytes (Bld) [#/Vol] 0.04 10*3/uL Normal 0.00-0.20 [facility] Comment on above: Performed By: #### L [id number] #### [facility] [address] [place] [address] Immature granulocytes/100 WBC (Bld) 0.6 % Normal 0.0-1.0 [facility] Comment on above: Performed By: #### L [id number] #### [facility] [address] [place] [address] Lymphocytes (Bld) [#/Vol] 1.82 10*3/uL Normal 1.20-4.00 [facility] Comment on above: Performed By: #### L [id number] #### [facility] (BEAKER) [address] [place] [address] Lymphocytes/100 WBC (Bld) 25.7 % Normal 20.0-45.0 [facility] Comment on above: Performed By: #### L [id number] #### [facility] [address] [place] [address] MCH (RBC) [Entitic mass] 27.7 pg Normal 27.0-33.0 [facility] Comment on above: Performed By: #### L [id number] #### [facility] [address] [place] [address] MCV (RBC) [Entitic vol] 84.0 fL Normal 82.0-98.0 [facility] Comment on above: Performed By: #### L [id number] #### [facility] (BEAKER) [address] [place] [address] Monocytes (Bld) [#/Vol] 0.70 10*3/uL Normal 0.10-1.00 [facility] Comment on above: Performed By: #### L [id number] #### [facility] (BEAKER) [address] [place] [address] Monocytes/100 WBC (Bld) 9.9 % Normal 5.0-12.0 [facility] Comment on above: Performed By: #### L [id number] #### [facility] (BEAKER) [address] [place] [address] Neutrophils (Bld) [#/Vol] 4.26 10*3/uL Normal 1.60-7.60 [facility] Comment on above: Performed By: #### L [id number] #### [facility] (BEAKER) [address] [place] [address] Neutrophils/100 WBC (Bld) 60.0 % Normal 40.0-72.0 [facility] Comment on above: Performed By: #### L [id number] #### [facility] ([facility]) [address] [place] [address] NRBC (PER 100 WBCS) BY AUTOMATED COUNT 0.0 % Normal 0 [facility] Comment on above: Performed By: #### L [id number] #### [facility] ([facility]) [address] [place] [address] PLATELETS (10*3/UL) IN BLOOD AUTOMATED COUNT 221 10*3/uL Normal 150-400 [facility] Comment on above: Performed By: #### L [id number] #### [facility] ([facility]) [address] [place] [address] RBC (Bld) [#/Vol] 5.20 10*6/uL Normal 4.20-5.70 [facility] Comment on above: Performed By: #### L [id number] #### [facility] ([facility]) [address] [place] [address] WBC (Bld) [#/Vol] 7.09 10*3/uL Normal 4.00-10.60 [facility] Comment on above: Performed By: #### L [id number] #### [facility] ([facility]) [address] [place] [address] HPon 07-09-2023 HP History Of Present I [...] atrial fibrillation (CMS/HCC) Pacemaker Shukri Vilchis MD [facility] HP H&P reviewed. The blanche chauhan was examined and there are no changes to the H&P. [facility] NURSNOTEon 07-09-2023 NURSNOTE RN educated pt on d/ c instructions. RN encouraged pt to voice any questions or concerns. Pt verbalizes no questions or concerns at this time. Pt was wheeled off of unit with all of belongings. [facility] NURSNOTE CHG wipes and betadi ne nasal swabs completed. Normal [facility] Orders Onlyon 07-09-2023 Orders Only [id number] Fr freda Antunez 1955 M Date Provider Department Center 07/09/2023 RICH SANCHEZ [facility] VASC LAB [facility] Family History Problem Relation Age of Onset Hypertension Mother Cancer Mother Stroke Mother Hypertension Father Aortic aneurysm Father Cancer Father Aortic aneurysm Paternal Grandfather Sudden Neg Hx Family Status - Relation Status Age at Mother Father Paternal Grandfather Neg Hx Normal [facility] 29on 06-17-2023 29 Addended by: Patrick CHAIREZ on: 06/17/2023 03:26 PM Modules accepted: Orders Normal [facility] HPon 06-17-2023 JOE Antunez is a pleasant 68 year old male previously evaluated for episodes of syncope and near syncope with history of atrial fibrillation and rf ablation at our [facility] in the Heart and Vascular Center at the [facility]. He was recently evaluated by Dr. [...] and time. Lab Review: Stress test 05/2023: [facility] CONCLUSION: 1. No acute or reversible ischemia. 2. Diaphragm attenuation artifact versus mildly decreased perfusion of the inferior wall; stable between stress and rest imaging. Attenuation artifact is suspected. 3. Normal wall motion, left ventricle volume, and ejection fraction. Dictated by: Donnell Du M.D. on 06/07/2023 at 12:03 Approved by: Donnell Du M.D. on 06/07/2023 at 13:36 [facility] echocardiogram 05/2023: CONCLUSION: 1. The left [...] had all questions answered. RTC 3m Normal [facility] Office Visiton 06-17-2023 Follow-up visit [id number] Fr freda Antunez Jr. 1955 M Date Provider Department Center 06/17/2023 JACKIE HASTINGS [facility] CARD [facility] Family History Problem Relation Age of Onset Hypertension Mother Cancer Mother Stroke Mother Hypertension Father Aortic aneurysm Father Cancer Father Aortic aneurysm Paternal Grandfather Sudden Neg Hx Family Status - Relation Status Age at Mother Father Paternal Grandfather Neg Hx Level of Service:13164 [place] OFFICE/OUTPATIENT ESTABLISHED LOW MDM 20 MIN Reason for Visit and Comments: Syncope [506] Normal [facility] Blood Urea Nitrogenon 2023 Urea nitrogen [Mass/Vol] 27 mg/dL High 7-25 [facility] Comment on above: Order Comment: STAT FOR ct Performed By: #### C REAT, BUN #### [address] abdomen pelvis w conon CT abdomen pelvis w [facility] [place] [address] [place] [address] CT Scan Report Signed Patient: Yoli Antunez Jr MR#: [id number] : 1955 Acct:[id number] Age/Sex: 68 / M ADM Date: 06/10/23 Loc: CT Room: Type: [facility] Attending Dr: Charlene Soria MD Copies to: [...] Aide Banks M.D.06/10/2023 4:04 PM Dictation Location: [facility]--10 Transcribed By: [facility] 06/10/23 1604 Dictated By: Aide Banks MD 06/10/23 1550 Signed By: 06/10/23 1604 [facility] Creatinineon 06-10-2023 Creatinine [Mass/Vol] 1.28 mg/dL Normal 0.70-1.30 [facility] Comment on above: Order Comment: STAT FOR ct Performed By: #### JANN GONZALEZ #### [address] GFR/1.73 sq M.predicted MDRD (S/P/Bld) [Vol rate/Area] mL/min/{1.73_m2} [facility] Comment on above: Order Comment: STAT FOR ct Result Comment: PERF ORMED BY: [place] [address] PATHOLOGIST PRINCIPAL SECRETARY ABDOUL ORR M.D. Performed By: #### C REAT, BUN #### [facility] [address] [id number] [facility] Creatinine [Mass/volume] in Serum or PlasmaOrdered By: Imad Asa on 06-10-2023 Creatinine [Mass/Vol] 1.28 mg/dL 0.70-1.30 [facility] No Panel InformationOrdered By: Imad Asa on 06-10-2023 Estimated GFR (CKD-EPI) > 60.0 mL/Min [facility] Creatinine Clearance (Chem N/A [facility] Urea nitrogen [Mass/volume] in Serum or PlasmaOrdered By: Imad Asaad on 06-10-2023 Urea nitrogen [Mass/Vol] 27 mg/dL 11-13 [facility] ALL KAPPA/LAMBDA FREE SERUMo n 06-01-2023 [facility] KAPPA LC FREE SER-MCNC 30.6 mg/L High 3.3 - 19.4 mg/L [facility] Comment on above: Rarely, increased se rum free light chains levels may not be detected or accurately quantified due to prozone phenomenon or in high viscosity samples using this immunoturbidimetric assay. Correlation with other laboratory results and clinical findings is recommended. [facility] [place] Free Light Chain was performed using the Binding Site Optilite immunoturbidimetric method. Result obtained with different assay methods or kits cannot be used interchangeably. [facility] KAPPA LC/LAMBDA SER 1.72 High 0.26 - 1.65 [facility] LAMBDA LC FREE SERPL-MCNC 17.8 mg/L 5.7 - 26.3 mg/L [facility] Comment on above: Rarely, increased se [...] Interpretation and review of laboratory results Abnormal [facility] Specimen Type: BLOOD SPECIMEN Ordering Facility: [facility] Address: [address] [place] [address] Original Ordering Provider: MARÍA CORTES [facility] KAPPA/BETHEA,FREE,SERon 2023 Immunoglobulin light chains.kappa.free (S) [Mass/Vol] 30.6 mg/L High 3.3-19.4 [facility] Comment on above: Order Comment: Speci men Type: BLOOD SPECIMENOrdering Facility: [facility] Address: [address] [place] [address] Result Comment: Rare ly, increased serum free light chains levels may not be detected or accurately quantified due to prozone phenomenon or in high viscosity samples using this immunoturbidimetric assay. Correlation with other laboratory results and clinical findings is recommended. [facility] [place] Free Light Chain was performed using the Binding Site Optilite immunoturbidimetric method. Result obtained with different assay methods or kits cannot be used interchangeably. Performed By: #### K LFRS ####[facility] LABCLIA [id number] [place] [address] [place] Immunoglobulin light chains.kappa/Immunog lobulin light chains.lambda (S) [Mass ratio] 1.72 High 0.26-1.65 [facility] Comment on above: Order Comment: Speci lucas Type: BLOOD SPECIMENOrdering Facility: [facility] Address: [address] [place] [address] Performed By: #### K LFRS ####[facility] LABCLIA [id number] [place] [address] [place] Immunoglobulin light chains.lambda.free [Mass/Vol] 17.8 mg/L Normal 5.7-26.3 [facility] Comment on above: Order Comment: Speci men Type: BLOOD SPECIMENOrdering Facility: [facility] Address: [address] [place] [address] Result Comment: Rare ly, increased serum free [...] used interchangeably. Performed By: #### K LFRS ####[facility] LABCLIA [id number] [address] [place] Office Visiton 05-30-2023 Follow-up visit [id number] Fr Harmony freda Peoples 1955 M Date Provider Department Center 05/30/2023 Tami-SHUKRI VILCHIS [facility] Family History Problem Relation Age of Onset Hypertension Mother Cancer Mother Stroke Mother Hypertension Father Aortic aneurysm Father Cancer Father Aortic aneurysm Paternal Grandfather Sudden Neg Hx Family Status - Relation Status Age at Mother Father Paternal Grandfather Neg Hx Level of Service:43485 [place] OFFICE/OUTPATIENT ESTABLISHED LOW MDM 20 MIN Normal [facility] Office Visiton 2023 Follow-up visit [id number] Fr camden Antunezomaricoty Peoples Jr. 1955 M Date Provider Department Center 2023 [facility] History Problem Relation Age of Onset Hypertension Mother Cancer Mother Stroke Mother Hypertension Father Aortic aneurysm Father Cancer Father Aortic aneurysm Paternal Grandfather Sudden Neg Hx Family Status - Relation Status Age at Mother Father Paternal Grandfather Neg Hx Level of Service:22895 [place] OFFICE/OUTPATIENT ESTABLISHED MOD MDM 30 MIN [facility] Documentationon 05-17-2023 Documentation [id number] Fr freda Antunez Jr. 1955 M Date Provider Department Center 05/17/202369267-CPRIMBSHELLY MURCIA [facility] CARD [facility] Heart[facility]AS Family History Problem Relation Age of Onset Hypertension Mother Cancer Mother Stroke Mother Hypertension Father Aortic aneurysm Father Cancer Father Aortic aneurysm Paternal Grandfather Sudden Neg Hx Family Status - Relation Status Age at Mother Father Paternal Grandfather Neg Hx Reason for Visit and Comments: Specialty Pharmacy Note: Katy [Other] [facility] 36on 05-16-2023 36 Hi! I was looking to Rx ivabradine for Mr. Antunez but I saw there's a contraindication with diltiazem. Do you typically have patients on both or should I stop the diltiazem? He is also on metoprolol 12.5mg BID. Appreciate your help! Harriet [facility] Orders Onlyon 05-16-2023 Orders Only [id number] Fr freda Antunez Jr. 1955 M Date Provider Department Center 05/16/2023 YANDEL VILLEGAS Family History Problem Relation Age of Onset Hypertension Mother Cancer Mother Stroke Mother Hypertension Father Aortic aneurysm Father Cancer Father Aortic aneurysm Paternal Grandfather Sudden Neg Hx Family Status - Relation Status Age at Mother Father Paternal Grandfather Neg Hx [facility] 36on 04-26-2023 36 Sounds to be related to his autonomic dysfunction. Please let him know I discussed with Jackie. Recommend we try him on metoprolol, we can start low at 12.5mg BID, and uptitrate. If he does not tolerate it then we can try a different medication. [facility] 36on 04-25-2023 36 Hi! Trying to think of how to help Jamil. Do you think we should try to get Corlanor on board for him? Harriet [facility] 36on 04-24-2023 36 Jazzy, please let kasandra ent know his loop recorder hasn't shown any alarms. We can try him on low dose metoprolol 12.5mg twice daily to see if this would help. I don't remember if he's tried metoprolol in the past or not. [facility] 36 Thank you! [facility] 36 Can we lower his thr eshold for alarms to be HR >130? [facility] 36on 04-23-2023 36 Can we lower his thr eshold for alarms to be HR >130? [facility] 36 Are you guys able to see if he's had any events on his LOOP? I didn't see anything in Evoke. [facility] Telephoneon 04-19-2023 Telephone [id number] Fr freda Antunez Jr. 1955 M Date Provider Department Center 04/19/2023 JAZZY DHILLON LEX [facility] Family History Problem Relation Age of Onset Hypertension Mother Cancer Mother Stroke Mother Hypertension Father Aortic aneurysm Father Cancer Father Aortic aneurysm Paternal Grandfather Sudden Neg Hx Family Status - Relation Status Age at Mother Father Paternal Grandfather Neg Hx Normal [facility] Julian 04-16-2023 L ------- Specimen: [id number] Received: 04/16/23 Status: NIKHIL Bautista Num: [id number] Spec Type: Surgical Subm Dr: Charlene Soria MD Tissues: A Colon Biopsy (RANDOM COLON BX) B Colon Biopsy (ASC POLYP) Procedures: GUSTAVO/Ragini, Gross/Micro L4/2 Age/ Patient Sex Location Account Attending Physician Yoli Antunez Jr/Richelle [id number] Chalrene Soria MD SPEC NUM: [id number] RECD: 04/16/23 STATUS: NIKHIL BAUTISTA NUM: [id number] RENAN: 04/16/23- SUBM DR: Charlene Soria MD ENTERED: 04/16/[address] [facility] DR: SPEC TYPE: Surgical DEPT: S [...] submitted in one cassette labeled B1. Specimen: [id number] Received: 04/16/23 Status: NIKHIL Bautista Num: [id number] Spec Type: Surgical Subm Dr: Charlene Soria MD Tissues: A Colon Biopsy (RANDOM COLON BX) B Colon Biopsy (ASC POLYP) Procedures: HE/4, Gross/Micro L4/2 Patient: Yoli Antunez Jr [id number] (Continued) Specimen: [id number] Received: 04/16/23 (Continued) Signed (signature on file) Dony Deunas MD 04/17/232228 Specimen: [id number] Received: 04/16/23 Status: NIKHIL Bautista Num: [id number] Spec Type: Surgical Subm Dr: Charlene Soria MD Tissues: A Colon Biopsy (RANDOM COLON BX) B Colon Biopsy (ASC POLYP) Procedures: Herbie BUITRAGO/Hilda L4/2 Patient: Yoli Antunez Jr [id number] (Continued) Specimen: [id number] Received: 04/16/23 (Continued) Microscopic Description A. Two H E slides reviewed. The microscopic examination confirms the diagnosis. B. Two H E slides reviewed. The microscopic examination confirms the diagnosis. CPT Codes 46948q0 Specimen: [id number] Received: 04/16/23 Status: NIKHIL Bautista Num: [id number] Spec Type: Surgical Subm Dr: Charlene Soria MD Tissues: A Colon Biopsy (RANDOM COLON BX) B Colon Biopsy (ASC POLYP) Procedures: HE/4, Gross/Micro L4/2 Patient: Yoli Antunez Jr [id number] (Continued) Signed (signature on file) Dony Duenas MD 04/17/232228 Normal [facility] Office Visiton 04-03-2023 Follow-up visit [id number] Fr freda Antunez Jr. 1955 M [facility] Provider Department Center 04/03/2023 YANDEL VILLEGAS [facility] Family History Problem Relation Age of Onset Hypertension Mother Cancer Mother Stroke Mother Hypertension Father Aortic aneurysm Father Cancer Father Aortic aneurysm Paternal Grandfather Sudden Neg Hx Family Status - Relation Status Age at Mother Father Paternal Grandfather Neg Hx Level of Service:19104 [place] OFFICE/OUTPATIENT ESTABLISHED LOW MDM 20-29 MIN Reason for Visit and Comments: Atrial Fibrillation [80] Normal [facility] 36on 03-25-2023 36 Report left in your mailbox. Normal [facility] Patient Messageon 03-18-2023 Patient Message [id number] Fr freda Antunez Jr. 1955 M Date Provider Department Center 03/18/2023 JACKIE HASTINGS [facility] Family History Problem Relation Age of Onset Hypertension Mother Cancer Mother Stroke Mother Hypertension Father Aortic aneurysm Father Cancer Father Aortic aneurysm Paternal Grandfather Sudden Neg Hx Family Status - Relation Status Age at Mother Father Paternal Grandfather Neg Hx Normal [facility] APTTon 03-05-2023 ACTIVATED PARTIAL THROMBOPLASTIN TIME IN PPP BY COAGULATION ASSAY 33.2 Seconds Normal 25.0-35.0 [facility] Comment on above: Result Comment: Clin ical significance of the APTT is questionable in the presence of heparin. Performed By: #### L [id number] #### [facility] ([facility]) [address] [place] [address] CBC WITH AUTO DIFFERENTIALon 03-05-2023 Basophils (Bld) [#/Vol] 0.05 10*3/uL Normal 0.00-0.20 [facility] Comment on above: Performed By: #### L [id number] #### [facility] [address] [place] [address] Basophils/100 WBC (Bld) 0.6 % Normal 0.0-1.0 [facility] Comment on above: Performed By: #### L [id number] #### [facility] ([facility]) [address] [place] [address] Eosinophils (Bld) [#/Vol] 0.26 10*3/uL Normal 0.00-0.50 [facility] Comment on above: Performed By: #### L [id number] #### [facility] ([facility]) [address] [place] [address] Eosinophils/100 WBC (Bld) 3.0 % Normal 0.0-6.0 [facility] Comment on above: Performed By: #### L [id number] #### [facility] ([facility]) [address] [place] [address] Erythrocyte distribution width (RBC) [Ratio] 14.6 % Normal 11.5-15.0 [facility] Comment on above: Performed By: #### L [id number] #### [facility] [address] [place] [address] ERYTHROCYTE MEAN CORPUSCULAR HEMOGLOBIN CONCENTRATION (G/DL) BY AUTOMATED 33.7 g/dL Normal 32.0-35.0 [facility] Comment on above: Performed By: #### L [id number] #### [facility] [address] [place] [address] Hematocrit (Bld) [Volume fraction] 39.8 % Normal 39.0-55.0 [facility] Comment on above: Performed By: #### L [id number] #### [facility] [address] [place] [address] Hemoglobin (Bld) [Mass/Vol] 13.4 g/dL Normal 13.0-17.0 [facility] Comment on above: Performed By: #### L [id number] #### [facility] ([facility]) [address] [place] [address] Immature granulocytes (Bld) [#/Vol] 0.05 10*3/uL Normal 0.00-0.20 [facility] Comment on above: Performed By: #### L [id number] #### [facility] ([facility]) [address] [place] [place] [address] Immature granulocytes/100 WBC (Bld) 0.6 % Normal 0.0-1.0 [facility] Comment on above: Performed By: #### L [id number] #### [facility] ([facility]) [address] [place] [address] Lymphocytes (Bld) [#/Vol] 2.42 10*3/uL Normal 1.20-4.00 [facility] Comment on above: Performed By: #### L [id number] #### [facility] ([facility]) [address] [place] [address] Lymphocytes/100 WBC (Bld) 27.8 % Normal 20.0-45.0 [facility] Comment on above: Performed By: #### L [id number] #### [facility] ([facility]) [address] [place] [address] MCH (RBC) [Entitic mass] 28.4 pg Normal 27.0-33.0 [facility] Comment on above: Performed By: #### L [id number] #### [facility] ([facility]) [address] [place] [address] MCV (RBC) [Entitic vol] 84.3 fL Normal 82.0-98.0 [facility] Comment on above: Performed By: #### L [id number] #### [facility] ([facility]) [address] [place] [address] Monocytes (Bld) [#/Vol] 0.90 10*3/uL Normal 0.10-1.00 [facility] Comment on above: Performed By: #### L [id number] #### [facility] ([facility]) [address] [place] [address] Monocytes/100 WBC (Bld) 10.4 % Normal 5.0-12.0 [facility] Comment on above: Performed By: #### L [id number] #### [facility] ([facility]) [address] [place] [address] Neutrophils (Bld) [#/Vol] 5.01 10*3/uL Normal 1.60-7.60 [facility] Comment on above: Performed By: #### L [id number] #### [facility] [address] [place] [address] Neutrophils/100 WBC (Bld) 57.6 % Normal 40.0-72.0 [facility] Comment on above: Performed By: #### L [id number] #### [facility] [address] [place] [address] NRBC (PER 100 WBCS) BY AUTOMATED COUNT 0.0 % Normal 0 [facility] Comment on above: Performed By: #### L [id number] #### [facility] ([facility]) [address] [place] [address] PLATELETS (10*3/UL) IN BLOOD AUTOMATED COUNT 236 10*3/uL Normal 150-400 [facility] Comment on above: Performed By: #### L [id number] #### [facility] ([facility]) [address] [place] [address] RBC (Bld) [#/Vol] 4.72 10*6/uL Normal 4.20-5.70 [facility] Comment on above: Performed By: #### L [id number] #### [facility] ([facility]) [address] [place] [address] WBC (Bld) [#/Vol] 8.69 10*3/uL Normal 4.00-10.60 [facility] Comment on above: Performed By: #### L [id number] #### [facility] ([facility]) [address] [place] [address] COMPREHENSIVE METABOLIC PANE Julian 03-05-2023 Albumin [Mass/Vol] 4.7 g/dL Normal 3.5-5.7 [facility] Comment on above: Performed By: #### L [id number] ####[facility] ([facility])[address] [place] [address] ALP [Catalytic activity/Vol] 69 U/L Normal 34-104 [facility] Comment on above: Performed By: #### L [id number] ####[facility] ([facility])[address] [place] [address] ALT [Catalytic activity/Vol] 17 U/L Normal 7-52 [facility] Comment on above: Performed By: #### L [id number] ####[facility] ([facility])[address] [place] [address] Anion gap [Moles/Vol] 15 mmol/L Normal 7-20 [facility] Comment on above: Performed By: #### L [id number] ####[facility] ([facility])[address] [place] [address] AST [Catalytic activity/Vol] 19 U/L Normal 13-39 [facility] Comment on above: Performed By: #### L [id number] ####[facility] ([facility])[address] [place] [address] Bilirubin [Mass/Vol] 0.4 mg/dL Normal 0.3-1.0 [facility] Comment on above: Performed By: #### L [id number] ####[facility] ([facility])[address] [place] [address] Calcium [Mass/Vol] 7.6 mg/dL Low 8.6-10.3 [facility] Comment on above: Performed By: #### L [id number] ####[facility] [place] [address] Chloride [Moles/Vol] 105 mmol/L Normal 98-107 [facility] Comment on above: Performed By: #### L [id number] ####[facility] [place] [address] CO2 [Moles/Vol] 23 mmol/L Normal 21-31 [facility] Comment on above: Performed By: #### L [id number] ####[facility] ([facility] [place] [address] Creatinine [Mass/Vol] 1.32 mg/dL High 0.70-1.30 [facility] Comment on above: Performed By: #### L [id number] ####[facility] ([facility])[address] [place] [address] GLOMERULAR FILTRATION RATE ML/MIN/1.73 SQ M.PREDICTED 58.4 mL/min/1.73m*2 Low >60.0 [facility] Comment on above: Result Comment: [facility]???s estimated glomerular filtration rate (eGFR) will [...] of individuals. Performed By: #### L [id number] ####[facility] ([facility] [place] [address] Glucose [Mass/Vol] 95 mg/dL Normal 70-100 [facility] Comment on above: Performed By: #### L [id number] ####[facility] ([facility] [place] [address] Potassium [Moles/Vol] 3.8 mmol/L Normal 3.5-5.1 [facility] Comment on above: Performed By: #### L [id number] ####[facility] ([facility] [place] [address] Protein [Mass/Vol] 7.3 g/dL Normal 6.0-8.3 [facility] Comment on above: Performed By: #### L [id number] ####[facility] ([facility])[address] [place] [address] Sodium [Moles/Vol] 139 mmol/L Normal 136-145 [facility] Comment on above: Performed By: #### L [id number] ####[facility] ([facility])[address] [place] [address] Urea nitrogen [Mass/Vol] 23 mg/dL Normal 7-25 [facility] Comment on above: Performed By: #### L [id number] ####[facility] ([facility])[address] [facility] [address] UREA NITROGEN/CREATININE (MASS RATIO) IN SER/PLAS 17.4 Normal [facility] Comment on above: Performed By: #### L [id number] ####[facility] ([facility])[address] [place] [address] CT BRAIN PERFUSIONon 023 CT BRAIN PERFUSION [...] brain recommended. Electronically signed: Damian Collier. Normal [facility] CT HEAD WO IV CONTRASTon CT [...] intracranial abnormality. Electronically signed: Damian Collier. Normal [facility] CTA HEAD W AND WO IV [...] brain recommended. Electronically signed: Damian Collier. Normal [facility] CTA NECK W AND WO IV [...] Electronically signed: Damian Collier. [facility] EDPROVon 03-05-2023 EDPROV HPI Chief Complaint Patient [...] no shortness of breath and no vomiting [place] Coma Scale Score: 15 Patient History Past [...] MR HEAD ANGIO WO IV CONTRAST 07/09/2022 [facility] MR IMAGING MRA NECK WO IV CONTRAST 07/09/2022 MR NECK ANGIO WO IV CONTRAST 07/09/2022 [facility] MR IMAGING NECK SURGERY THYROIDECTOMY [...] with standin (more content not included)... Normal [facility] EDPROV HPI Chief Complaint Patient presents [...] MR HEAD ANGIO WO IV CONTRAST 07/09/2022 [facility] MR IMAGING ??? MRA NECK WO IV CONTRAST 07/09/2022 MR NECK ANGIO WO IV CONTRAST 07/09/2022 [facility] MR IMAGING ??? NECK SURGERY [...] (more content not included)... Invalid Interpretation Code [facility] Office Visiton 03-05-2023 Follow-up visit [id number] Fr freda Antunez Jr. 1955 M Date Provider Department Center 03/05/2023 JACKIE HASTINGS [facility] CARD MA HeartVAS Family History Problem Relation Age of Onset Hypertension Mother Cancer Mother Stroke Mother Hypertension Father Aortic aneurysm Father Cancer Father Aortic aneurysm Paternal Grandfather Sudden Neg Hx Family Status - Relation Status Age at Mother Father Paternal Grandfather Neg Hx Level of Service:35054 [place] OFFICE/OUTPATIENT ESTABLISHED MOD MDM 30-39 MIN Reason for Visit and Comments: Follow-up [880032] Normal [facility] POCT GLUCOSE METER UNSOLICIT ED RESULTSon 03-05-2023 Glucose [Mass/Vol] 96 mg/dL Normal 70-105 [facility] Comment on above: Order Comment: Waive d Testing in the ED is performed under the ED CLIA certificate #[id number]. Result Comment: vbei lfu Performed By: #### L [id number] ####[facility] (Qingguo)[address] [place] [address] PROTIME-INRon 03-05-2023 INR IN PPP BY COAGULATION ASSAY 0.98 Normal 0.90-1.10 [facility] Comment on above: Result Comment: ACCC [...] 1995;108:231S-246S. Performed By: #### L [id number] #### [facility] (BEAKER) [address] [place] [address] PROTHROMBIN TIME (PT) IN PPP BY COAGULATION ASSAY 13.0 Seconds Normal 12.3-14.8 [facility] Comment on above: Performed By: #### L AB320 #### [facility] ([facility]) [address] [place] [address] TROPONIN Ion 03-05-2023 Troponin I.cardiac [Mass/Vol] 0.00 ng/mL Normal 0.00-0.04 [facility] Comment on above: Performed By: #### L [id number] #### [facility] ([facility]) [address] [place] [address] Leydi 02-05-2023 EDUARDO Telephone (NIQ) YOLI ANTUNEZ ([id number]) 1955 M Date Time Provider Department 02/05/23 MARÍA PEARL During your visit today, we recorded the following information about you: Aydee Hunter 02/05/2023 12:07 PM Signed Scanned in results from [facility] for review Shivani Ambriz RN 02/05/2023 12:49 PM Signed Copper: YAMILA Carnes, RN Shivani Ambriz RN 02/05/2023 1:01 PM Signed María Pealr APRN.KST OPERATOR You 7 minutes ago (12:52 PM) This is a normal result. [place] YAMILA Carnes, RN Allergies As of Date: 02/05/2023 Noted Allergy Reaction PENICILLINS 09/12/2000 16 - Unknown TIKOSYN (DOFETILIDE) 07/26/2022 14 - Other: See Comments Comments: Aphasia, dizzy, muscle cramps VANCOMYCIN 07/26/2022 10 - Anaphylaxis Date Reviewed: 01/24/2023 Reviewed by: Peggy Bravo RN - Fully Assessed Reason for Visit: Results [95] Cmt: [facility] Prescriptions as of 02/05/2023 - benazepril [...] Status:Closed by SHIVANI AMBRIZ on 02/05/23 Normal [facility] CT ABDOMEN PELVIS W IV CONTR Adalgisa 02-01-2023 CT ABDOMEN PELVIS W IV CONTRAST Interpreted By: Renaldo Conrad, STUDY: CT ABDOMEN PELVIS W IV CONTRAST; 02/01/2023 2:11 pm INDICATION: Signs/Symptoms:worsening LLQ abdominal pain and watery diarrhea. COMPARISON: None. ACCESSION NUMBER(S): [id number] ORDERING CLINICIAN: YOSSI CHEN TECHNIQUE: CT of [...] Renaldo Conrad 02/01/2023 2:52 PM Dictation workstation: [id number] [facility] CT Abdomen and Pelvis W cont rast Candace 02-01-2023 1. No acute intra-ab dominal or pelvic pathology. 2. Uncomplicated colonic diverticulosis. 3. Trace hiatal hernia. 4. Scattered splenic calcific granulomas likely sequelae of chronic granulomatous infection. MACRO: None Signed by: Renaldo Conrad 02/01/2023 2:52 PM Dictation workstation: [id number] Interpreted By: Renaldo Palmer, STUDY: CT ABDOMEN PELVIS W IV CONTRAST; 02/01/2023 2:11 pm INDICATION: Signs/Symptoms:worsening LLQ abdominal pain and watery diarrhea. COMPARISON: None. ACCESSION NUMBER(S): [id number] ORDERING CLINICIAN: YOSSI CHEN TECHNIQUE: CT of [...] and watery diarrhea. COMPARISON: None. ACCESSION NUMBER(S): [id number] ORDERING CLINICIAN: YOSSI CHEN TECHNIQUE: CT of [...] Renaldo Conrad 02/01/2023 2:52 PM Dictation workstation: [id number] [facility] Work Phone: Radiology Study observation (narrative) [facility] Work Phone: CT Abdomen and Pelvis W cont rast IVOrdered By: Renaldo Conrad on 02-01-[address] [facility] Work Phone: Gastrointestinal pathogens i dentifiedon [...] Rotavirus RNA Not Detected Normal Not Detected [facility] Comment on above: Performed By: #### 7 9390-1 #### RENÉ Hinojosa ([id number]) [facility] ([facility]) [address] [place] [address] Basic metabolic 2000 panelon 01-31-2023 Anion gap [Moles/Vol] 12 mmol/L Normal 10-20 [facility] Comment on above: Performed By: #### 2 4321-2 #### MAYELIN Hill ([id number]) [facility] (EM[facility]) [address] [place] [address]4483 Calcium [Mass/Vol] 7.2 mg/dL Low 8.6-10.3 [facility] Comment on above: Performed By: #### 2 4321-2 #### MAYELIN Hill ([id number]) [facility] ([facility]C) [address] [place] [address] 80964 Chloride [Moles/Vol] 106 mmol/L Normal 98-107 [facility] Comment on above: Performed By: #### 2 4321-2 #### MAYELIN Hill ([id number]) [facility] ([facility]) [address] [place] [address] 76256 CO2 [Moles/Vol] 28 mmol/L Normal 21-32 [facility] Comment on above: Performed By: #### 2 4321-2 #### MAYELIN Hill ([id number]) [facility] ([facility]) [address] [place] [address] 07454 Creatinine [Mass/Vol] 1.65 mg/dL High 0.50-1.30 [facility] Comment on above: Performed By: #### 2 4321-2 #### MAYELIN Hill ([id number]) [facility] ([facility]) [address] [place] [address] 85423 GFR/1.73 sq M.predicted MDRD (S/P/Bld) [Vol rate/Area] 45 mL/min/1.73m*2 Low >60 [facility] Comment on above: Result Comment: Calc ulations of estimated GFR are performed using the 2020 CKD-EPI Study Refit equation without the race variable for the IDMS-Traceable creatinine methods. https://jasn.asnjournals.org/content//ASN.3833976 988 Performed By: #### 2 4321-2 #### MAYELIN Hill ([id number]) [facility] ([facility]) [address] [place] [address] 13534 Glucose [Mass/Vol] 83 mg/dL Normal 74-99 [facility] Comment on above: Performed By: #### 2 4321-2 #### MAYELIN Hill ([id number]) [facility] ([facility]) [address] [place] [address] 17590 Potassium [Moles/Vol] 4.3 mmol/L Normal 3.5-5.3 [facility] Comment on above: Performed By: #### 2 4321-2 #### MAYELIN Hill ([id number]) [facility] ([facility]) [address] [place] [address] 86094 Sodium [Moles/Vol] 142 mmol/L Normal 136-145 [facility] Comment on above: Performed By: #### 2 4321-2 #### MAYELIN Hill ([id number]) [facility] ([facility]) [address] [place] [address] 10279 Urea nitrogen [Mass/Vol] 25 mg/dL High 6-23 [facility] Comment on above: Performed By: #### 2 4321-2 #### MAYELIN Hill ([id number]) [facility] ([facility]) [address] [place] [address] Leydi 01-30-2023 EDUARDO Telephone (NIDaisha) YOLI ANTUNEZ ([id number]) 1955 M Date Time Provider Department 01/30/23 MARÍA PEARL During your visit today, we recorded the following information about you: Jannet Hunterh 01/30/2023 11:59 AM Signed Scanned in lab from [facility] for review Paul Burns RN 01/30/2023 1:53 PM Signed YAMILA Cage, RN, BA Paul Burns RN 01/30/2023 4:11 PM Signed María Pearl APRN.KST OPERATOR You 2 hours ago (1:58 PM) I [...] Encounter Status:Closed by PAUL BURNS on 01/30/23 [facility] Leydi 01-28-2023 EDUARDO Telephone (NIQ) YOLI ANTUNEZ ([id number]) 1955 M Date Time Provider Department 01/28/23 MARÍA PEARL During your visit today, we recorded the following information about you: Aydee Hunter 01/28/2023 9:37 AM Signed Scanned in results from [facility] for review Paul Burns RN 01/28/2023 9:58 AM Signed YAMILA Cage, RN, BA Paul Burns RN 01/28/2023 10:49 AM Signed María Pearl APRN.KST OPERATOR You 15 minutes ago (10:27 AM) Thank [...] Reason for Visit: Results [95] Cmt: [facility] Prescriptions as of 01/28/2023 - benazepril [...] Encounter Status:Closed by PAUL BURNS on 01/28/23 [facility] CNOVcaleb 01-24-2023 CNOV Office Visit (SYNCMN ) YOLI ANTUNEZ ([id number]) 1955 M Date Time Provider Department 01/24/23 [...] Test done in consult with María Pearl APRN.KST OPERATOR . Procedure Start Time: 1419 Height 198.1 [...] [R55] Orthostatic dizziness [R42] Order(s):SALINE LOCK DISCONTINUE [3617092] Order #: [id number]: 1 INTERMITTENT PERIPHERAL DEVICE ([place]) [5919375] Order #: [id number]: 1 Prescriptions as of 01/24/2023 - benazepril [...] Status:Closed by PEGGY BRAVO on 01/24/23 Normal [facility] Leydi 01-24-2023 CNPN Telephone (NIQ) YOLI ANTUNEZ ([id number]) 1955 M Date Time Provider Department 01/24/23 MARÍA PEARL [facility] During your visit today, we recorded the following information about you: Aydee Hunter 01/24/2023 2:27 PM Signed Scanned in medical records from [facility] for review Paul Burns RN 01/24/2023 4:54 PM Signed Awaiting other lab results. Will send [facility] once all results are back. María Pearl APRN.KST OPERATOR You 2 hours ago (2:47 PM) Normal Vitamin B12. [place] YAMILA Cage, RN, BA Allergies As of Date: 01/24/2023 Noted Allergy Reaction PENICILLINS 09/12/2000 16 - Unknown TIKOSYN (DOFETILIDE) 07/26/2022 14 - Other: See Comments Comments: Aphasia, dizzy, muscle cramps VANCOMYCIN 07/26/2022 10 - Anaphylaxis Date Reviewed: 01/24/2023 Reviewed by: Peggy Bravo, RN - Fully Assessed Reason for Visit: Received Outside Medical Records [3579] Cmt: [facility] Prescriptions as of 02/04/2023 - aspirin, [...] Encounter Status:Closed by PAUL BURNS on 02/04/23 [facility] Sudarshan 01-23-2023 CNOV Office Visit (NENMMN ) YOLI ANTUNEZ ([id number]) 1955 M Date Time Provider Department 01/23/23 [...] this focusing problem? 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 The lightheadedness and dizziness does NOT [...] with t (more content not included)... Normal [facility] Office Visiton 01-21-2023 Follow-up visit [id number] Fr freda Antunez Jr. 1955 M Date Provider Department Center 01/21/2023 Sruthi-ELYSSA SOLANO CARD [facility] Family History Problem Relation Age of Onset Hypertension Mother Cancer Mother Stroke Mother Hypertension Father Aortic aneurysm Father Cancer Father Aortic aneurysm Paternal Grandfather Sudden Neg Hx Family Status - Relation Status Age at Mother Father Paternal Grandfather Neg Hx Level of Service:42390 [place] OFFICE/OUTPATIENT ESTABLISHED MOD MDM 30-39 MIN Normal [facility] CNOVon 12-31-2022 CNOV Office Visit (NHMNS2 ) YOLI ANTUNEZ ([id number]) 1955 M Date Time Provider Department 12/31/22 3:15 PM [facility] During your visit today, we recorded the following information about you: Pulse Blood pressure Weight Height 69/minute 123/77 114.8 kg 1.981 Sarbjit Dan, [employer].KST OPERATOR 12/31/2022 5:04 PM Signed [facility] Follow up visit December 31, 2022 [...] by Cardiology at the [facility] for syncopal episodes. 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 put in in the front bulldozer/loader/compactor/scraper and helped him to the house - [...] troponins and ECG 09/11/[address] [facility]- Cardiology - Jackie Banks NP wrote: I copied and pasted my initial consult note from [facility] date 07/20/2022 for continuity of care: Hx paroxysmal atrial fibrillation. Undervent a watchman device implant at [facility] 03/06/2022. History of CAD. AAA [...] Last evaluated one month ago by neurology [facility]. Recent MRA MRV. HPI: Syncope began [...] hypertension, Lab (more content not included)... Normal [facility] Office Visiton 12-28-2022 Follow-up visit [id number] Fr freda Antunez Jr. 1955 M Date Provider Department Center 12/28/2022 [facility]8-COLLIN GONSALEZ LEX [facility] Family History Problem Relation Age of Onset Hypertension Mother Cancer Mother Stroke Mother Hypertension Father Aortic aneurysm Father Cancer Father Aortic aneurysm Paternal Grandfather Sudden Neg Hx Family Status - Relation Status Age at Mother Father Paternal Grandfather Neg Hx Level of Service:76110 [place] OFFICE/OUTPATIENT ESTABLISHED MOD MDM 30-39 MIN Normal [facility] Follow Up (General Surgery)o n 12-13-2022 Follow Up (General Surgery) Diagnoses/Problems H/O hiatal hernia (V12.79) (Z87.19) Patient Discussion/Summary followup as needed Provider Impressions Patient continues to do well. He was reassured; followup as needed Chief Complaint Patient is here for follow up History of Present Pffrupj63-cyww-gii patient who underwent laparoscopic hiatal hernia repair [...] MOUTH TWICE DAILY WITH MEALS Pyridostigmine [place] 60 MG Oral TabletTAKE 1 TABLET BY [...] Oral Tablet Vitamin D (Ergocalciferol) 1.25 MG (68121 UT) Oral CapsuleTAKE 1 CAPSULE BY MOUTH [...] Muscle strain; ALBERT = N; [facility] Patient Discussion/Summary Ice pack to left abdominal [...] here for post op History of Present Qvfokue83-pqku-vav patient who underwent laparoscopic repair of paraesophageal [...] MOUTH TWICE DAILY WITH MEALS Pyridostigmine [place] 60 MG Oral TabletTAKE 1 TABLET BY [...] Oral Tablet Vitamin D (Ergocalciferol) 1.25 MG (24688 UT) Oral CapsuleTAKE 1 CAPSULE BY MOUTH ONCE A WEEK Vitals Vital Signs Recorded: 29Nov2022 01:43PM Height6 ft 6 in Jomoap921 lb BMI Arteihbngj49.24 kg/m2 BSA Calculated2.49 Physical Exam abd: soft, non-distended, tenderness over LUQ trocar site; no hernia Signatures Electronically signed by : Yossi Chen MD (more content not included)... Normal [facility] Discharge [id number] 023 Discharge Profile2 Discharge Orders: Anticipated Discharge Date: Anticipated Discharge [id number] Hospital Providers: Provider RoleProvider Name Yossi Olguin [...] up Call to Schedule in2 weeks Phone [phone] Commentscall to make appointment Other Clinician Instructions: Other Instructions: Other Clinician InstructionsAvoid bread, salad, steak and carbonated beverages for 2 wks Electronic Signatures: Sivan Costa ([employer]-KST OPERATOR) (Signed 22-Nov-2022 12:04) Authored: Discharge Orders, Provider FINAL REVIEW of Orders, Appointments, Gold [facility] - Sole Leather Cutting Machine Operator Summary Yossi Chen) (Signed 22-Nov-2022 12:26) Authored: Discharge Orders, Provider FINAL REVIEW of Orders, Appointments, Other Clinician Instructions Last Updated: 22-Nov-2022 12:26 by Yossi Chen) [facility] Order Reconciliationon 11-22 Order Reconciliation Page 1 Discharge Reconciliation Document Reconciliation Type: Discharge requested on behalf of Yossi Chen (Physician) done by Yossi Chen) Discharge - Partial Reconciliation: 22-Nov-2022 12:05 by: Sivan Costa ([employer]-[facility]) Discharge - Reconciliation: 22-Nov-2022 12:31 by: Yossi [...] not required (more content not included)... Normal [facility] APTTon 11-21-2022 aPTT Coag (Bld) [Time] 34 s Normal 27 - 38 [facility] Comment on above: Result Comment: Note new reference range as of 10/09/2022 at 10:00am. Performed By: #### A PTT ####[facility] [place], [place] [id number] Activated Partial Thrombopla stin Timeon 11-21-2022 aPTT Coag (PPP) [Time] 34 s 27 - 38 -[facility] 201 DO Work Phone: Comment on [...] applied here Patient Transferred from Other Facility ([facility], [facility],etc)no Patient Identity Verified Bypatient [...] AlertFor Ebola-like Symptoms: Isolate Patient and Notify Provider/Loom Setter For Contact: Notify Provider/Loom Setter Advance Directive: Advance Directive/DNRyes Advance Directive typeLiving [...] Communicatenone Learning Preferencesaudio Cultural Considerationsnone Developmental Considerationsnone Zoroastrianism Considerationsnone Learning Assessment (Other Learner): Other learner availableno Depression Screen: During the past month, have you often been bothered by feeling down, depressed or hopelessno During the past month, have you often had little interest or pleasure in doing thingsno Have you had any thoughts of harming anyone elseno [place] Suicide: Risk Screen Not Applicable/Able to Answerable [...] Was this within the past 3 monthsno [place] Suicide Riskmoderate Adult Nutrition Screen: Have you [...] Spiritual Screen: Are there any cultural, spiritual, sikh practices/values/needs that are important for us to knowno CAGE: Is this an injured patient at a Trauma Center ([facility]/[place]): no Vaccinations: Vaccination - Influenza Vaccination Screen: (more content not included)... Normal [facility] CBC AND DIFFERENTIALon 11-21 % AUTOMATED IMMATURE GRAN 0.3 % Normal 0.0 - 0.9 [facility] Comment on above: Result Comment: Nataliia ture Granulocyte Count (IG) includes promyelocytes, myelocytes and metamyelocytes but does not include bands. Percent differential counts (%) should be interpreted in the context of the absolute cell counts (cells/L). Performed By: #### C BCDF #### [address] [id number] Basophils (Bld) [#/Vol] 0.04 10*3/uL Normal 0.00 - 0.10 [facility] Comment on above: Performed By: #### C BCDF #### [address] [id number] Basophils/100 WBC (Bld) 0.6 % Normal 0.0 - 2.0 [facility] Comment on above: Performed By: #### C BCDF #### [address] [id number] Eosinophils (Bld) [#/Vol] 0.27 10*3/uL Normal 0.00 - 0.70 [facility] Comment on above: Performed By: #### C BCDF #### [address] [id number] Eosinophils/100 WBC (Bld) 3.9 % Normal 0.0 - 6.0 [facility] Comment on above: Performed By: #### C BCDF #### [address] [id number] Erythrocyte distribution width (RBC) [Ratio] 13.5 % Normal 11.5 - 14.5 [facility] Comment on above: Performed By: #### C BCDF #### [address] [id number] Hematocrit (Bld) [Volume fraction] 40.1 % Low 41.0 - 52.0 [facility] Comment on above: Performed By: #### C BCDF #### [address] [id number] Hemoglobin (Bld) [Mass/Vol] 13.3 g/dL Low 13.5 - 17.5 [facility] Comment on above: Performed By: #### C BCDF #### [address] [id number] Lymphocytes (Bld) [#/Vol] 1.54 10*3/uL Normal 1.20 - 4.80 [facility] Comment on above: Performed By: #### C BCDF #### [address] [id number] Lymphocytes/100 WBC (Bld) 22.3 % Normal 13.0 - 44.0 [facility] Comment on above: Performed By: #### C BCDF #### [address] [id number] MCHC (RBC) [Mass/Vol] 33.2 g/dL Normal 32.0 - 36.0 [facility] Comment on above: Performed By: #### C BCDF #### [address] [id number] MCV (RBC) [Entitic vol] 83 fL Normal 80 - 100 [facility] Comment on above: Performed By: #### C BCDF #### [address] [id number] Monocytes (Bld) [#/Vol] 0.71 10*3/uL Normal 0.10 - 1.00 [facility] Comment on above: Performed By: #### C BCDF #### [address] [id number] Monocytes/100 WBC (Bld) 10.3 % Normal 2.0 - 10.0 [facility] Comment on above: Performed By: #### C BCDF #### [address] [id number] Neutrophils (Bld) [#/Vol] 4.33 10*3/uL Normal 1.20 - 7.70 [facility] Comment on above: Performed By: #### C BCDF #### [address] [id number] Neutrophils/100 WBC (Bld) 62.6 % Normal 40.0 - 80.0 [facility] Comment on above: Performed By: #### C BCDF #### [address] [id number] Platelets (Bld) [#/Vol] 210 10*3/uL Normal 150 - 450 [facility] Comment on above: Performed By: #### C BCDF #### [address] [id number] RBC 4.84 x10E12/L Normal 4.50 - 5.90 [facility] Comment on above: Performed By: #### C BCDF #### [address] [id number] WBC (Bld) [#/Vol] 6.9 10*3/uL Normal 4.4 - 11.3 [facility] Comment on above: Performed By: #### C BCDF #### [address] [id number] COMPREHENSIVE PANELon 2022 Albumin [Mass/Vol] 4.4 g/dL Normal 3.4 - 5.0 [facility] Comment on above: Performed By: #### C MP #### [address] [id number] ALP [Catalytic activity/Vol] 60 U/L Normal 33 - 136 [facility] Comment on above: Performed By: #### C MP #### [address] [id number] ALT [Catalytic activity/Vol] 14 U/L Normal 10 - 52 [facility] Comment on above: Result Comment: Kasandra ents treated with Sulfasalazine may generate falsely decreased results for ALT. Performed By: #### C MP #### [address] [id number] Anion gap [Moles/Vol] 14 mmol/L Normal 10 - 20 [facility] Comment on above: Performed By: #### C MP #### [address] [id number] AST [Catalytic activity/Vol] 13 U/L Normal 9 - 39 [facility] Comment on above: Performed By: #### C MP #### [address] [id number] Bilirubin [Mass/Vol] 0.3 mg/dL Normal 0.0 - 1.2 [facility] Comment on above: Performed By: #### C MP #### [address] [id number] Calcium [Mass/Vol] 7.1 mg/dL Low 8.6 - 10.3 [facility] Comment on above: Performed By: #### C MP #### [address] [id number] Chloride [Moles/Vol] 106 mmol/L Normal 98 - 107 [facility] Comment on above: Performed By: #### C MP #### [address] [id number] Creatinine [Mass/Vol] 1.38 mg/dL High 0.50 - 1.30 [facility] Comment on above: Performed By: #### C MP #### [address] [id number] GFR/1.73 sq M.predicted among non-blacks MDRD (S/P/Bld) [Vol rate/Area] 55 mL/min/{1.73_m2} Abnormal >90 [facility] Comment on above: Result Comment: CALC ULATIONS OF ESTIMATED GFR ARE PERFORMED USING THE 2020 CKD-EPI STUDY REFIT EQUATION WITHOUT THE RACE VARIABLE FOR THE IDMS-TRACEABLE CREATININE METHODS. https://jasn.asnjournals.org/content//ASN.7566231 988 Performed By: #### C MP #### [address] [id number] Glucose [Mass/Vol] 105 mg/dL High 74 - 99 [facility] Comment on above: Performed By: #### C MP #### [address] [id number] HCO3 (Bld) [Moles/Vol] 24 mmol/L Normal 21 - 32 [facility] Comment on above: Performed By: #### C MP #### [address] [id number] Potassium [Moles/Vol] 3.8 mmol/L Normal 3.5 - 5.3 [facility] Comment on above: Performed By: #### C MP #### [address] [id number] Protein [Mass/Vol] 7.2 g/dL Normal 6.4 - 8.2 [facility] Comment on above: Performed By: #### C MP #### [address] [id number] Sodium [Moles/Vol] 140 mmol/L Normal 136 - 145 [facility] Comment on above: Performed By: #### C MP #### [address] [id number] Urea nitrogen [Mass/Vol] 23 mg/dL Normal 6 - 23 [facility] Comment on above: Performed By: #### C MP #### [address] [id number] Clinical Event Note-Surgical first assistanton 11-21-2022 Clinical Event Note-interior design assistant Clinical Event: Clinical Event Note: TopicSurgical first line supervisor Details graduate assistant athletic trainer to dr Yossi Chen. Procedure: Laparoscopic repair of Type 3 paraesophageal hernia with Toupet wrap. Provider/Team Contact Info-Pager Fab Law PA-C [phone] Electronic Signatures: Kee Law (PAC) (Signed 21-Nov-2022 14:31) Authored: Clinical Event Note Last Updated: 21-Nov-2022 14:31 by Kee Law (PAC) Normal [facility] Complete Blood Count + Difflilly amnn 11-21-2022 Basophils/100 WBC (Bld) 0.6 % 0.0 - 2.0 [facility] 201 DO Work Phone: Erythrocyte distribution width (RBC) [Ratio] 13.5 % See Below [facility] DO Work Phone: Comment on above: Reference Range: 11. 5 - 14.5 Hematocrit (Bld) [Volume fraction] 40.1 % below low threshold See Below [facility] DO Work Phone: Comment on above: Reference Range: 41. 0 - 52.0 Hemoglobin (Bld) [Mass/Vol] 13.3 g/dL below low threshold See Below [facility] DO Work Phone: Comment on above: Reference Range: 13. 5 - 17.5 Lymphocytes/100 WBC (Bld) 22.3 % See Below [facility] DO Work Phone: Comment on above: Reference Range: 13. 0 - 44.0 MCHC (RBC) [Mass/Vol] 33.2 g/dL See Below [facility] Work Phone: Comment on above: Reference Range: 32. 0 - 36.0 MCV (RBC) [Entitic vol] 83 fL 80 - 100 [facility] DO Work Phone: Monocytes/100 WBC (Bld) 10.3 % 2.0 - 10.0 [facility] 201 DO Work Phone: Neutrophils/100 WBC (Bld) 62.6 % See Below [facility] DO Work Phone: Comment on above: Reference Range: 40. 0 - 80.0 Platelets (Bld) [#/Vol] 210 10*3/uL 150 - 450 [facility] 201 DO Work Phone: RBC (Bld) [#/Vol] 4.84 {x10E12/L} See Below [facility] [place] 201 DO Work Phone: Comment on above: Reference Range: 4.5 0 - 5.90 WBC (Bld) [#/Vol] 6.9 10*3/uL 4.4 - 11.3 [facility] [place] 201 DO Work Phone: Complete Blood Count + Differential 0.04 {x10E9/L} See Below [facility] 201 DO Work Phone: Comment on above: Reference Range: 0.0 0 - 0.10 Complete Blood Count + Differential 0.27 {x10E9/L} See Below [facility] [place] 201 DO Work Phone: Comment on above: Reference Range: 0.0 0 - 0.70 Complete Blood Count + Differential 0.71 {x10E9/L} See Below [facility] 201 DO Work Phone: Comment on above: Reference Range: 0.1 0 - 1.00 Complete Blood Count + Differential 1.54 {x10E9/L} See Below [facility] [place] 201 DO Work Phone: Comment on above: Reference Range: 1.2 0 - 4.80 Complete Blood Count + Differential 4.33 {x10E9/L} See Below [facility] 201 DO Work Phone: Comment on above: Reference Range: 1.2 0 - 7.70 Complete Blood Count + Differential 3.9 % 0.0 - 6.0 [facility] 201 DO Work Phone: Complete Blood Count + Differential 0.3 % 0.0 - 0.9 [facility] 201 DO Work Phone: Comment on above: Immature Granulocyte Count (IG) includes promyelocytes, myelocytes and metamyelocytes but does not include bands. Percent differential counts (%) should be interpreted in the context of the absolute cell counts (cells/L). Laboratory - Chemistry and C hemistry - challengeon 11-21-2022 Albumin BCP dye [Mass/Vol] 4.4 g/dL 3.4 - 5.0 [facility] 201 DO Work Phone: [phone] ALP [Catalytic activity/Vol] 60 U/L 33 - 136 -[facility] 201 DO Work Phone: ALT With P-5'-P [Catalytic activity/Vol] 14 U/L 10 - 52 [facility] 201 DO Work Phone: Comment on above: Patients treated wit h Sulfasalazine may generate falsely decreased results for ALT. Anion gap [Moles/Vol] 14 mmol/L 10 - 20 -[facility] 201 DO Work Phone: AST With P-5'-P [Catalytic activity/Vol] 13 U/L 9 - 39 -[facility] DO Work Phone: Bilirubin [Mass/Vol] 0.3 mg/dL 0.0 - 1.2 -[facility] 201 DO Work Phone: Calcium [Mass/Vol] 7.1 mg/dL below low threshold 8.6 - 10.3 -[facility] 201 DO Work Phone: [phone] Chloride [Moles/Vol] 106 mmol/L 98 - 107 -[facility] 201 DO Work Phone: [phone] CO2 [Moles/Vol] 24 mmol/L 21 - 32 [facility] 201 DO Work Phone: [phone] Creatinine [Mass/Vol] 1.38 mg/dL above high threshold See Below [facility] 201 DO Work Phone: Comment on above: Reference Range: 0.5 0 - 1.30 Glucose [Mass/Vol] 105 mg/dL above high threshold 74 - 99 [facility] 201 DO Work Phone: Potassium [Moles/Vol] 3.8 mmol/L 3.5 - 5.3 [facility] 201 DO Work Phone: Protein [Mass/Vol] 7.2 g/dL 6.4 - 8.2 [facility] 201 DO Work Phone: Sodium [Moles/Vol] 140 mmol/L 136 - 145 [facility] 201 DO Work Phone: Urea nitrogen [Mass/Vol] 23 mg/dL 6 - 23 [facility] 201 DO Work Phone: Laboratory - Coagulationon 0 11-21-2022 INR Coag (PPP) [Relative time] 1.0 {INR} 0.9 - 1.1 [facility] 201 DO Work Phone: PT Coag (PPP) [Time] 11.7 s 9.8 - 12.8 [facility] ia 201 DO Work Phone: Comment on above: Note new reference andrew burton as of 10/09/2022 at 10:00am. No Panel Informationon 11-21 [facility] 201 DO Work Phone: 55 {mL/min/1.73m2} Abnormal >90 [facility] 201 DO Work Phone: Comment on above: CALCULATIONS OF FLORENTIN MATED GFR ARE PERFORMED USING THE 2020 CKD-EPI STUDY REFIT EQUATION WITHOUT THE RACE VARIABLE FOR THE IDMS-TRACEABLE CREATININE METHODS.https://jasn.asnjournals.org/content/early/ASN .4675709886 PT/INRon 11-21-2022 PT Coag (PPP) [Time] 11.7 s Normal 9.8 - 12.8 [facility] Comment on above: Result Comment: Note new reference range as of 10/09/2022 at 10:00am. Performed By: #### P TINR ####[facility] [place], [place] [id number] PT, INR 1.0 Normal 0.9 - 1.1 [facility] Comment on above: Performed By: #### P TINR ####[facility] [place], [place] [id number] Patient Profile - Adult v2on 11-21-2022 Patient [...] applicable(1) Weight in kg113.7 kilogram(s) Weight in xqp328.6 pound(s) Weight Methodstated Scale Typebed Height in [...] Profile - Preop v3 19-Nov-2022 11:56 Normal [facility] Surgical Pathology Depar tmenton 11-21-2022 [facility] Surgical Pathology Department Name HARMONY YOLI Tera ISIDRO Pathologist: KAITLYN LAW MD Date of Procedure: 11/21/2022 Date Received: 11/21/2022 Date Reported 12/03/2022 Submitting Physician: YOSSI CHEN MD Location: [facility] Copy To/Referring/Attending: RADHA BURRIS MD Other External # FINAL DIAGNOSIS A. HIATAL HERNIA SAC: -- BENIGN ADIPOSE TISSUE AND CONTAINED BENIGN LYMPH NODES. Electronically Signed Out By KAITLYN LAW MD/AWP By the signature on this report, the individual or group listed as making the Final Interpretation/Diagnosis certifies that they have reviewed this case. Diagnostic interpretation performed at [facility] [address] [place] [address] Clinical History: Physician Contact Number: [phone] Fixative (A): Formalin Clinical Diagnosis History HIATAL HERNIA. Specimens Submitted As: A: HERNIA SAC Gross Description: Received in formalin, labeled with the patient's name and hospital number and hernia sac , are multiple segments of yellow fibroadipose soft tissue aggreagting to 8.0 x 5.0 x 2.5 cm. Areas of induration, nodularity, hemorrhage or necrosis are not seen. Deputy Brand Inspector sections are submitted in one cassette. LMP lmp/11/27/2022 [facility] Department of Pathology [address] [place] [address] Normal [facility] Comment on above: Performed By: #### U [facility] #### [facility] Surgical Pathology Department [address] [place] [address] Patient Profile - Preop v3on 11-19-2022 Patient Profile - Preop v3 Patient Profile - Preop: Initial Info: Patient DemographicsName: YOLI ANTUNEZ Date: 1955 Address: [address] [place] [address], [place], [id number] Date/Time [id number] 12:28 Primary Phone [phone] Instructions Givenappropriate clothing, bring glasses/contacts case, bring responsible adult as the jinriksha driver (procedure may be cancelled if no jinriksha driver), center location, insurance information, remove jewerly/piercings, time to arrive Prep Instructions Reviewedn/a Instructions/Prep CommentNPO after midnight - bring event recorder info/ID card day of procedure How to be AddressedFred Spoken Language PreferredEnglish Source of Informationpatient Stated Reason for Admissionhiatal hernia repair Primary Contact Name and Numberjames Smith [phone] Limitations on Visitors/Phone Callsnone Medications Brought to Hospitalno General Health: Weight in kg113.5 kilogram(s) Weight in ojy318.2 pound(s) Weight Methodactual (measured) Scale Typestanding Height [...] recorder- right side of chest- checked at [place] [facility] stone watchman device cataract detached retina [...] Symptoms/Conditionsdysrhyth dhruv; hypertension Cardiovascular Management Strategiesmedication therapy; family practice medical doctor Cardiovascular Symptoms/Conditions Commentcardiac ablation for atrial fib/ [...] Withspouse Living Arrangementshouse Resource/Environmental Concernsnone Anticipated Transition Toleeds Services Anticipated at Transitionnone Tobacco Use: Tobacco Useyes Tobacco Typecigarettes Number of Packs per Day2 Number of yrs15 Pack yrs30 Tobacco Commentquit smoking 1986 Pre-op Checklist: Arrival [id number] Arrival Time05:23 Procedure TypeLaparoscopic Hiatal Hernia repair with Toupet wrap possible feeding tube and upper endoscopy NPOyes Last Food Svohgb90-Hha-3072 22:00 Last Clear Fluid Gisnfw08-Itz-9641 22:00 ID Band On Patientpatient ID (name), [...] Allergies, Ho (more content not included)... Normal [facility] CNPLaura 11-16-2022 CNPN Telephone (NHMNS2) YOLI ANTUNEZ ([id number]) 1955 M Date Time Provider Department 11/16/22 [facility] During your visit today, we recorded the following information about you: Jessica Scott 11/16/2022 5:56 PM Signed Received faxed report of medical records done at . Uploaded via [employer], will be available in [employer] for review shortly. Allergies As of Date: 11/16/2022 Noted Allergy Reaction PENICILLINS 09/12/2000 16 - Unknown TIKOSYN (DOFETILIDE) 07/26/2022 14 - Other: See Comments Comments: Aphasia, dizzy, muscle cramps VANCOMYCIN 07/26/2022 10 - Anaphylaxis Date Reviewed: 10/18/2022 Reviewed by: Michaela Polo, RN - Fully Assessed Reason for Visit: Received Outside Medical Records [[id number]] Cmt: Prescriptions as of 11/29/2022 - ergocalciferol [...] without aura, with intractable*05/31/2022 Encounter Status:Closed by JESSIAC SCOTT on 11/29/22 Normal [facility] Initial Visit (General Surge ry)on 11-12-2022 [...] gas bloat, inability to burp, blood clot, ND and stroke. All questions answered and he is willing to proceed. He will be on a full liquid diet for 3 days after surgery and then advance to a soft diet. Avoid bread Em[place]ia steak and carbonated beverage for 2 weeks. Chief Complaint Patient referred by Dr. Daily for a hiatal hernia consult. History of Present [age]ixue56 y/o male patient referred for symptomatic hiatal [...] waking up feeling unrefreshed, excessive daytime fatigue. [place] Sleepiness Scale Score is 16 /24. Fatigue [...] CPAP ( (more content not included)... Normal Cyphoma Order Reconciliationon 10-15 Order Reconciliation Page 1 [...] 1.25 milligram(s) orally once a day Normal [facility] Patient Profile - Preop v3on 10-12-2022 Patient Profile - Preop v3 Patient Profile - Preop: Initial Info: Patient DemographicsName: YOLI ANTUNEZ Date: 1955 Address: [address] [place] [address], [address] [place] [address] Primary Phone [phone] Instructions Giventime to arrive, Arrival time of 0930 for surgery time of 1100 How to be Addressedfrederick Spoken Language PreferredEnglish Stated Reason for Admissionsleep study Primary Contact Name and Numbersee facesheet Medications Brought to Hospital[facility] General Health: Weight in kg116.6 kilogram(s) Weight in uoi339 pound(s) Height in feet6 feet Height in inches5.95 inch(es) Height in cm197.9 centimeter(s) BMI (kg/m2)29.771 square meter Patient or Family Member Reaction to Anesthesiapatient reaction Patient Reaction to Anesthesiaawakening delayed Blood Avoidance/Restrictionsnone Previous Transfusion Reactionnot applicable Health Mgmt: Symptoms/Conditions Managed at Homecardiovascular; endocrine Barriers to Managing Healthnone Relationship/Environ: Lives Withspouse Living Arrangementshouse Resource/Environmental Concernsnone Anticipated Transition Toleeds Services Anticipated at Transitionnone Tobacco Use: Tobacco Useno Pre-op Checklist: Arrival [id number] Arrival Time09:59 Procedure Typesleep study NPOyes Last Food Mvbgjc07-Dry-2297 00:00 Last Clear Fluid Sdgest98-Zpn-6271 00:00 ID Band On Patientpatient ID (name), [...] 15-Oct-2022 10:00 by Letty Godfrey (RN) Normal [facility] Electrocardiogram 12 Leadon 10-10-2022 Electrocardiogram 12 Lead Ventricular Rate 70 Atrial Rate 70 P-R Interval 194 QRS Duration 78 Q-T Interval 420 QTC Calculation(Bazett) 453 P [place] 38 R [place] 13 T [place] 66 QRS Count 12 Q Onset 222 P Onset 125 P Offset 161 T Offset 432 QTC Fredericia 442 Diagnosis Class Normal Diagnosis Normal sinus rhythm Normal ECG No previous ECGs available Confirmed by Aliya Candelaria ([id number]) on 10/14/2022 8:34:16 PM Normal [facility] No Panel Informationon 10-10 [email or web address]?R etrieveTestByDateTime?Patie tlSF=[id number]&Date= 023&Time=14%3a24%3a36%3a00& TestType=ECG&Site=10&Output Type=PDF&Ext=PDF [facility] Work Phone: Normal sinus rhythm [facility] Work Phone: Normal [facility] Work Phone: [phone] [facility] Work Phone: [phone] [facility] Work Phone: [phone] 1 [facility] Work Phone: [phone] 1 [facility] Work Phone: [phone] 1 [facility] Work Phone: 12 1 [facility] Work Phone: 66 1 [facility] Work Phone: [phone] 1 [facility] Work Phone: 38 1 [facility] Work Phone: [phone] 1 [facility] Work Phone: [phone] 1 [facility] Work Phone: 78 1 [facility] Work Phone: [phone] 1 [facility] Work Phone: 70 1 [facility] Work Phone: Established Visit (Otolaryng ology)on 09-25-2022 Established Visit (Otolaryngology) Diagnoses/Problems GERD (gastroesophageal reflux disease) (530.81) (K21.9) Dysphagia, oropharyngeal phase (787.22) (R13.12) Non-smoker (V49.89) (Z78.9) Hiatal hernia (553.3) (K44.9) Aphasia (784.3) (R47.01) Patient Discussion/Summary Today, you were seen by Dr. Ruyb Daily MD. Our office will call you [...] symptoms appear more central. Sees neurology at [facility] who suspects he may have autonomic dysfunction - F/u with [facility] neurology as scheduled 2) ADA, [...] telehealth visit. Dysphagia follow-up History of Present [age]peccm82 year old man with history of intermittnet [...] more in his throat. Seeing neurology at [facility] for his intermittent aphasia. Still [...] following interpretation. (more content not included)... Normal [facility] Established Visit (Otolaryng ology)on 09-24-2022 Established Visit [...] assist you through your ENT care at [facility]. Dr. Perrin is an ENT surgeon who specializes in voice, airway and swallowing issues. This means that she specializes in taking care of patients with complex voice, airway and swallowing problems. Dr. Perrin's office number is [phone]. Please use this number to contact her and her care team regardless of which office you use to access care. This number is the most direct way to communicate with all the members of the care team. Dr. Perrin?s marketing secretary answers the office phone from 9am-4pm Mon-Sat. Call [phone] and push 2. She can help you with scheduling of appointments, general questions and information. You may need to leave a message if she is helping another patient. In this case, someone from the team will call you back the same day if you leave your message before 3pm, or the next business morning. Dr. Perrin?s nurse and can be reached by calling [phone]. We make every effort to return phone calls the same day. If you are in need of urgent assistance after hours, please call [phone] and ask for ENT extracorporeal circulation specialist. Dr. Perrin works closely with speech therapists as they work together to help solve your issues with speech and swallowing. You may see a speech therapist during your appointment if Dr. Perrin feels this is needed. If you need to reach speech therapy to talk with a therapist or to schedule an appointment, please call [phone]. Others who may be included in your care are dieticians, social workers, audiologists, neurologists, and physical therapists. Dr. Perrin will provide these referrals as needed. Please let her know if you would like to request a specific referral. For your convenience, Dr. Perrin sees patients at different [facility] locations including the [facility], and [facility] at the main campus of [facility]. While we try to make your appointments [...] discuss his care with Dr. Long at [facility] to understand current treatment plans [...] Michaud. He (more content not included)... Normal Cyphoma Established Visit (Otolaryngology) No report was sent Normal [facility] s No Panel Informationon 09-13 [email or web address]?={[email or web address] [email or web address] 487} [facility] Work Phone: [facility] Work Phone: -[facility]o [facility] Work Phone: [facility] Surgical Pathology Depar tmenton 09-13-2022 [facility] Surgical Pathology Department Name YOLI ANTUNEZ Tera [...] reviewed this case. Diagnostic interpretation performed at [facility] [address] [place] [address] Clinical History: R/O Esophagitis and metaplasia Specimens Submitted As: A: GE JUNCTION COLD FORCEPS Gross Description: Received in formalin, labeled with the patient's name and hospital number and A , are 2 fragments of martin, soft tissue aggregating to 0.5 x 0.2 x 0.2 cm. The specimen is submitted in toto in one cassette. [facility] sbs/09/21/2022 [facility] Department of Pathology [address] [place], [place] [address] Normal [facility] Comment on above: Performed By: #### U [facility] #### [facility] Surgical Pathology Department [address] [place] [address] Upper GI endoscopyon 023 Upper GI endoscopy PATIENTNAME Patient Name: Yoli Antunez EXAMDATE Procedure Date: 09/13/2022 3:41 PM PATIENTID PATIENTACCOUNTNUM PATIENTDOB Date of : 1955 ADMITTYPE Admit Type: Outpatient PATIENTROOM Site: [place] Procedure Room 2 ETHNICITY Ethnicity: Not or RACE Race: White PROVDR Attending MD: Ruby Daily MD, [id number] ENDOPROCEDURENAME Procedure: Upper GI endoscopy INDICATION Indications: Dysphagia, cricopharyngeal web PRIMARYPROVIDER Providers: Ruby Daily MD (Doctor), Vale Mercado RN (Nurse), Sabina Atkins, Outpatient Psychiatrist EDREFPROVIDER Referring: Ruby Daily MD CURRENT_MEDS Medicines: [...] medications. CPT_CODES Procedure Code(s): --- Professional --- 03206, Moderate sedation services provided by the same physician or other qualified health critical care clinical nurse specialist performing the diagnostic or therapeutic service that the sedation supports, requiring the presence of an independent trained observer to assist in the monitoring of the patient's level of consciousness and physiological status; initial 15 minutes of intraservice time, patient age 5 years or older [address], Unlisted procedure, esophagus ICD_CODES Diagnosis Code(s): --- Professional --- J38.3, O (more content not included)... Normal [facility] SURGICAL PATHOLOGY RESULTSon 09-06-2022 Pathology Report [...] ABNORMALITIES. Electronically Signed Out By MAYELIN AVILEZ MD/[facility] By the signature on this report, the individual or group listed as making the Final Interpretation/Diagnosis certifies that they have reviewed this case. Diagnostic interpretation performed at [facility] [address] [facility] [address] Clinical History: A) R/O H.pylori B) R/O [...] in toto in one cassette. DMB dmb/09/04/2022 [facility] Department of Pathology [address] [place] [address] Established Visit (Otolaryng ology)on 09-04-2022 Established Visit [...] telehealth visit. Dysphagia follow-up History of Present Kzkpkku89 year old man with history of dysphagia [...] of : 1955 Admit Type: Outpatient Site: [place] Procedure Room 5 Ethnicity: Not or Race: White Attending MD: ELISEO Williamson, [id number] Procedure: Upper GI endoscopy Indications: Dysphagia for 5 years to both liquids and solids Patient Profile: This is a 67 year old male. Refer to note in patient chart for documentation of history and physical. Providers: ELISEO Williamson (Doctor), Jaylen Lo, RN (Nurse), Florentino De Dios, Outpatient Psychiatrist, Kristin Mcdaniels RN (Nurse) Referring: Radha Burris [...] specimen was done by the nurse and urgent care technician using the patient's name and medical record number. Estimated blood loss was minimal. A single 3 mm nodule was found at the gastroesophageal junction, 39 cm from the incisors. Biopsies were taken with a cold forceps for histology. Verification of patient identification for the specimen was done by the nurse and urgent care technician using the patient's name and medical [...] specimen was done by the nurse and urgent care technician using the patient's name and medical [...] right naris un (more content not included)... [facility] Work Phone: Radiology Study observation (narrative) [facility] Work Phone: EGDOrdered By: Beth Diego on 08-30-[address] [facility] Work Phone: No Panel Informationon 08-30 Name BROOKE ANTUNEZ GHASSAN Haley JR. Pathologist: MAYELIN AVILEZ MD Date of Procedure: 08/30/2022 Date [facility] [address] Work Phone: [email or web address]={[email or web address]} [facility] Work Phone: [facility]-Otolaryngo log[facility] [...] 1.25 milligram(s) orally once a day Normal [facility] Surgical Pathology Depar tmenton 08-30-2022 [facility] Surgical Pathology Department Name YOLI ANTUNEZ JRAmarjit [...] ABNORMALITIES. Electronically Signed Out By MAYELIN AVILEZ MD/[facility] By the signature on this report, the individual or group listed as making the Final Interpretation/Diagnosis certifies that they have reviewed this case. Diagnostic interpretation performed at [address] [place] [address] Clinical History: A) R/O H.pylori B) R/O [...] in toto in one cassette. DMB dmb/09/04/2022 [facility] Department of Pathology [address] [place] [address] Normal [facility] Comment on above: Performed By: #### U [facility] #### [facility] Surgical Pathology Department [address] [place] [address] Upper GI endoscopyon 023 Upper GI endoscopy PATIENTNAME Patient Name: Yoli Antunez EXAMDATE Procedure Date: 08/30/2022 7:32 AM PATIENTID PATIENTACCOUNTNUM PATIENTDOB Date of : 1955 ADMITTYPE Admit Type: Outpatient PATIENTROOM Site: [place] Procedure Room 5 ETHNICITY Ethnicity: Not or RACE Race: White PROVDR Attending MD: ELISEO Williamson, [id number] ENDOPROCEDURENAME Procedure: Upper GI endoscopy INDICATION Indications: Dysphagia for 5 years to both liquids and solids PTPROFILE Patient Profile: This is a 67 year old male. Refer to note in patient chart for documentation of history and physical. PRIMARYPROVIDER Providers: ELISEO Williamson (Doctor), Jaylen Lo RN (Nurse), Florentino De Dios, Outpatient Psychiatrist, Kristin Mcdaniels RN (Nurse) EDREFPROVIDER Referring: Radha [...] specimen was done by the nurse and urgent care technician using the patient's name and medical record number. Estimated blood loss was minimal. A single 3 mm nodule was found at the gastroesophageal junction, 39 cm from the incisors. Biopsies were taken with a cold forceps for histology. Verification of patient identification for the specimen was done by the nurse and urgent care technician using the patient's name and medical [...] specimen was done by the nurse and urgent care technician using the patient's name and medical [...] prepyloric re (more content not included)... Normal [facility] Established Visit (Otolaryng ology)on 08-17-2022 Established [...] waking up feeling unrefreshed, excessive daytime fatigue. [place] Sleepiness Scale Score is 16 /24. Fatigue [...] CPAP; however, (more content not included)... Normal [facility] Tobacco Screening.on 023 Adult depression screening assessment No [facility] [id number] Work Phone: Fall risk assessment a) No falls within the last year [facility] [id number] Work Phone: Tobacco use status CPHS b) No [facility] [id number] Work Phone: CLAIMS ADJUSTER CROP (Progress Note)on 2022 CLAIMS ADJUSTER CROP (Progress Note) Therapy Diagnosis Assessed Dysphagia, oropharyngeal [...] to doctors? appointments. Primary Language for learning: Emirati. Insurance Insurance reviewed Visit number: 3 Onset Date: 2022 Medicare Certification Period: Beginnin2022 Endin2022 Subjective Living Environment: home Patient arrival: independent Patient alert and ready to participate in telehealth visit this date. Objective Progress to date: watermaster goals: 1. Patient will safety tolerate the [...] verbalized understanding and agreement: yes CPT Code 71621 Treatment of swallowing dysfunction and/or oral function for feeding Signatures Electronically signed by : Yoanna Quigley CCC-CLAIMS ADJUSTER CROP; Aug 13 2022 3:44PM EST (Author) Normal [facility] GI ESOPHAGRAMon 08-10-2022 GI ESOPHAGRAM Patient Name: YOLI ANTUNEZ STUDY: GI ESOPHAGRAM; ; 08/10/2022 1:49 pm INDICATION: assess motility, r/o achalasia, assess mass/lesions R13.12: Dysphagia, oropharyngeal phase. COMPARISON: None. ACCESSION NUMBER(S): [id number] ORDERING CLINICIAN: RUBY DAILY TECHNIQUE: Fluoroscopic guided single and double contrast barium esophagram. FINDINGS: Fishing Tackle Repairer view of the chest, abdomen shows loop [...] Electronically signed by: JAE SOUTH MD Normal [facility] Radiologyon 08-10-2022 XR Esophagus Views W contrast PO Normal [facility] Work Phone: Established Visit (Otolaryng ology)on 07-31-2022 [...] a telehealth visit. Swallow History of Present [id number] year old man with history of dysphagia [...] 20 MG (more content not included)... Normal [facility] Tobacco Screening.on 023 Adult depression screening assessment No [facility]-Otolaryn go logMedWhat[facility] Work Phone: Fall risk assessment b) One or more fall s in the last year [facility] Work Phone: Tobacco use status CPHS b) No [facility]o [facility] Work Phone: CLAIMS ADJUSTER CROP (Progress Note)on 2022 CLAIMS ADJUSTER CROP (Progress Note) No report was sent [facility] Note) Therapy Diagnosis Assessed Dysphagia, oropharyngeal [...] to doctors? appointments. Primary Language for learning: Emirati. 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 COMPARISON: None. ACCESSION NUMBER(S): [id number] ORDERING CLINICIAN: RANJANA PERRIN TECHNIQUE: MBSS completed. Informed verbal consent obtained prior to completion of exam. Trials of thin, nectar thick, honey thick, puree, soft-solids, and regular solids given. Fluoroscopy time : 3 minutes, 2 seconds. CLAIMS ADJUSTER CROP: Osmel Lozano M.S., [facility]-CLAIMS ADJUSTER CROP Phone/Pager: Can be contacted via [employer] or SPEECH FINDINGS: Reason for referral: A [...] a home program 2-3 times per day. watermaster goals: Patient will be able to tolerate [...] regarding the esophageal phase of the swallow. CLAIMS ADJUSTER CROP impressions with severity rating: Patient presents with [...] nectar thi (more content not included)... Normal [facility] No Panel Informationon 07-18 Normal [facility] Work Phone: Swallow Evaluation v2-Modifi ed Barium Swallow, SLPon 07-18-2022 Swallow Evaluation v2-Modified Barium Swallow, CLAIMS ADJUSTER CROP Rehab: Info: Time IN11:05 Time OUT11:55 Total Treatment [id number] Evaluation TypeModified Barium Swallow, CLAIMS ADJUSTER CROP Impression: Assessment (Swallow Eval)CLAIMS ADJUSTER CROP impressions with severity rating: [Patient presents with [...] of the EMR/AEMR Electronic Signatures: Osmel Lozano (CLAIMS ADJUSTER CROP) (Signed 18-Jul-2022 14:17) Authored: Info, Impression Last Updated: 18-Jul-2022 14:17 by Osmel Lozano (CLAIMS ADJUSTER CROP) [facility] Established Visit (Otolaryng ology)on 07-17-2022 Established [...] assist you through your ENT care at [facility]. Dr. Perrin is an ENT surgeon who specializes in voice, airway and swallowing issues. This means that she specializes in taking care of patients with complex voice, airway and swallowing problems. Dr. Perrin's office number is [phone]. Please use this number to contact her and her care team regardless of which office you use to access care. This number is the most direct way to communicate with all the members of the care team. Dr. Perrin?s marketing secretary answers the office phone from 9am-4pm Mon-Fri. Call [phone] and push 2. She can help you with scheduling of appointments, general questions and information. You may need to leave a message if she is helping another patient. In this case, someone from the team will call you back the same day if you leave your message before 3pm, or the next business morning. Dr. Perrin?s nurse and can be reached by calling [phone]. We make every effort to return phone calls the same day. If you are in need of urgent assistance after hours, please call [phone] and ask for ENT extracorporeal circulation specialist. Dr. Perrin works closely with speech therapists as they work together to help solve your issues with speech and swallowing. You may see a speech therapist during your appointment if Dr. Perrin feels this is needed. If you need to reach speech therapy to talk with a therapist or to schedule an appointment, please call [phone]. Others who may be included in your care are dieticians, social workers, audiologists, neurologists, and physical therapists. Dr. Perrin will provide these referrals as needed. Please let her know if you would like to request a specific referral. For your convenience, Dr. Perrin sees patients at different [facility] locations including the [facility], and [facility] [place] at the [facility]. While we try to make your appointments [...] on Omeprazole (more content not included)... Normal [facility] Tobacco Screening.on 023 Adult depression screening assessment No MG-Otolaryn go [facility] 4100 Work Phone: Fall risk assessment b) One or more fall s in the last year MG-Otolaryngo [facility] 4100 Work Phone: Tobacco use status CPHS b) No -Otolaryngo [facility] 4100 Work Phone: BNPon 06-04-2022 Natriuretic peptide B (Bld) [Mass/Vol] 182.0 pg/mL Normal <=900.0 [facility] Comment on above: Performed By: #### H STROPN #### [facility] [address] [place] [address] Dr. Kulwant Brennan CARDIAC MAYELIN ADMITon 023 CK [Catalytic activity/Vol] 86 U/L Normal 39-308 [facility] Comment on above: Performed By: #### L ACT #### [facility] [address] [place] [address] [address] Kulwant Brennan CK.MB [Mass/Vol] 0.84 ng/mL Normal <=3.60 [facility] Comment on above: Performed By: #### L ACT #### [facility] [address] [place] [address] Dr. Kulwant Brennan HSTROP 4.6 pg/mL Normal 4.0-76.1 [facility] Comment on above: Result Comment: CUT- OFF POINTS HAVE BEEN ESTABLISHED BASED ON THE FOURTH UNIVERSAL DEFINITIONS OF MYOCARDIAL INFARCTION. THE UPPER REFERENCE LIMIT (URL) OF TROPONIN, DEFINED THE 99TH PERCENTILE OF cTnI DISTRIBUTION IN A REFERENCE POPULATION, HAS BEEN CONFIRMED THE DECISION THRESHOLD FOR ND DIAGNOSIS. Performed By: #### L ACT #### [facility] [address] [place] [address] Dr. Kulwant Brennan EFRAIN 52 ng/mL Normal 16-96 [facility] Comment on above: Performed By: #### L ACT #### [facility] [address] [place] [address] Dr. Kulwant Brennan CBC AUTO DIFFon 06-04-2022 BASO # 0.1 103/ul Normal 0.0-0.1 [facility] Comment on above: Performed By: #### L ACT #### [facility] [address] [place] [address] Dr. Kulwant Brennan Basophils/100 WBC (Bld) 0.5 % Normal 0.2-2.0 [facility] Comment on above: Performed By: #### L ACT #### [facility] [address] [place] [address] Dr. Kulwant Brennan EO # 0.2 103/ul Normal 0.0-0.7 [facility] Comment on above: Performed By: #### L ACT #### [facility] [address] [place] [address] Dr. Kulwant Brennan Eosinophils/100 WBC (Bld) 2.6 % Normal 0.9-7.0 [facility] Comment on above: Performed By: #### L ACT #### [facility] [address] [place] [address] Dr. Kulwant Brennan Erythrocyte distribution width (RBC) [Ratio] 15.0 % Normal 11.0-15.0 [facility] Comment on above: Performed By: #### L ACT #### [facility] [address] [place], [place] [address] Dr. Kulwant Brennan Hematocrit (Bld) [Volume fraction] 42.3 % Normal 42.0-54.0 [facility] Comment on above: Performed By: #### L ACT #### [facility] [address] [place] [address] Dr. Kulwant Brennan Hemoglobin (Bld) [Mass/Vol] 14.0 g/dL Normal 14.0-18.0 [facility] Comment on above: Performed By: #### L ACT #### [facility] [address] [place] [address] Dr. Kulwant Brennan IG # 0.10 10e3/ul Critically high 0.00-0.03 [facility] Comment on above: Performed By: #### L ACT #### [facility] [address] [place] [address] Dr. Kulwant Brennan IG % 1.1 % Critically high 0.0-0.[address] [facility] Comment on above: Performed By: #### L ACT #### [facility] [address] [place] [address] Dr. Kulwant Brennan LYMPH # 2.7 103/ul Normal 1.2-3.8 [facility] Comment on above: Performed By: #### L ACT #### [facility] [address] [place] [address] Dr. Kulwant Brennan Lymphocytes/100 WBC (Bld) 29.1 % Normal 20.5-60.0 [facility] Comment on above: Performed By: #### L ACT #### [facility] [address] [place] [address] Dr. Kulwant Brennan MANUAL DIFF REQ NO Normal [facility] Comment on above: Performed By: #### L ACT #### [facility] [address] [place] [address] Dr. Kulwant Brennan MCH (RBC) [Entitic mass] 27.0 pg Normal 25.9-34.0 [facility] Comment on above: Performed By: #### L ACT #### [facility] [address] [place] [address] Dr. Kulwant Brennan MCHC (RBC) [Mass/Vol] 33.1 g/dL Normal 29.9-35.2 [facility] Comment on above: Performed By: #### L ACT #### [facility] [address] [place] [address] [address] Kulwant Brennan MCV (RBC) [Entitic vol] 81.5 fL Normal 80.0-94.0 [facility] Comment on above: Performed By: #### L ACT #### [facility] [address] [place] [address] [address] Kulwant Brennan MONO # 1.0 103/ul Critically high 0.3-0.8 [facility] Comment on above: Performed By: #### L ACT #### [facility] [address] [place] [address] [address] Kulwant Brennan Monocytes/100 WBC (Bld) 10.5 % Normal 1.7-12.0 [facility] Comment on above: Performed By: #### L ACT #### [facility] [address] [place] [address] [address] Kulwant Brennan NEUT # 5.1 103/ul Normal 1.4-6.5 [facility] Comment on above: Performed By: #### L ACT #### [facility] [address] [place] [address] [address] Kulwant Brennan Neutrophils/100 WBC (Bld) 56.2 % Normal 43.0-75.0 [facility] Comment on above: Performed By: #### L ACT #### [facility] [address] [place] [address] [address] Kulwant Brennan Platelet mean volume (Bld) [Entitic vol] 10.0 fL Normal 9.5-13.5 [facility] Comment on above: Performed By: #### L ACT #### [facility] [address] [place] [address] [address] Kulwant Brennan PLT 251 103/ul Normal 150-450 [facility] Comment on above: Performed By: #### L ACT #### [facility] [address] [place] [address] [address] Kulwant Brennan RBC 5.19 106/ul Normal 4.70-6.10 [facility] Comment on above: Performed By: #### L ACT #### [facility] [address] [place], [place] [address] Dr. Kulwant Brennan WBC 9.1 103/ul Normal 4.0-11.0 [facility] Comment on above: Performed By: #### L ACT #### [facility] [address] [place], [place] [address] STROKE HEAD WOon [...] CONNER TANG Date: 2022-06-04 07:16 Normal [facility] Covid-19 PCR (CVDTB)on 05-23 SARS-CoV-2 (COVID-19) RNA MIKE+probe Ql (Unsp spec) Not detected Normal NOT DETECTED [facility] Comment on above: Result Comment: When [...] for this test is supported by the Literary Agent of Health and Human Service's declaration that [...] used). Performed By: #### H STROPN #### [facility] [address] [place] [address] Dr. Kulwant Brennan D-DIMERon 06-04-2022 D-DIMER 0.38 mg/L FEU Normal <=0.59 [facility] Comment on above: Performed By: #### D DIM #### [facility] [address] [place] [address] Dr. Kulwant Brennan D-DIMER COMMENTS SEE BELOW Normal [facility] Comment on above: Result Comment: Incr [...] hospitalization. Performed By: #### D DIM #### [facility] [address] [place] [address] Dr. Kulwant Brennan PROF 14(COMP METB)on 023 Albumin [Mass/Vol] 4.1 g/dL Normal 3.4-5.0 [facility] Comment on above: Performed By: #### H STROPN #### [facility] [address] [place] [address] Dr. Kulwant Brennan Albumin/Globulin [Mass ratio] 1.1 {ratio} Normal [facility] Comment on above: Performed By: #### H STROPN #### [facility] [address] [place] [address] Dr. Kulwant Brennan ALP [Catalytic activity/Vol] 78 U/L Normal 46-116 [facility] Comment on above: Performed By: #### H STROPN #### [facility] [address] [place] [address] [address] Kulwant Brennan ALT [Catalytic activity/Vol] 26 U/L Normal 16-63 [facility] Comment on above: Performed By: #### H STROPN #### [facility] [address] [place] [address] [address] Kulwant Brennan Anion gap [Moles/Vol] 16.3 mmol/L Normal [facility] Comment on above: Performed By: #### H STROPN #### [facility] [address] [place] [address] [address] Kulwant Brennan AST [Catalytic activity/Vol] 18 U/L Normal 15-37 [facility] Comment on above: Performed By: #### H STROPN #### [facility] [address] [place] [address] [address] Kulwant Brennan Bilirubin [Mass/Vol] 0.4 mg/dL Normal 0.2-1.0 [facility] Comment on above: Performed By: #### H STROPN #### [facility] [address] [place] [address] [address] Kulwant Brennan Calcium [Mass/Vol] 8.4 mg/dL Critically low 8.5-10.1 [facility] Comment on above: Performed By: #### H STROPN #### [facility] [address] [place] [address] [address] Kulwant Brennan Chloride [Moles/Vol] 104 mmol/L Normal 98-107 [facility] Comment on above: Performed By: #### H STROPN #### [facility] [address] [place] [address] [address] Kulwant Brennan CO2 [Moles/Vol] 24.8 mmol/L Normal 21.0-32.0 [facility] Comment on above: Performed By: #### H STROPN #### [facility] [address] [place] [address] [address] Kulwant Brennan Creatinine [Mass/Vol] 1.52 mg/dL Critically high 0.70-1.30 [facility] Comment on above: Performed By: #### H STROPN #### [facility] [address] [place] [address] [address] Kulwant Brennan EGFR-AF SRI LANKAN 55 mL/min/1.73m2 Critically low >=60 [facility] Comment on above: Performed By: #### H STROPN #### [facility] [address] [place] [address] [address] Kulwant Brennan EGFR-NON AF SRI LANKAN 46 mL/min/1.73m2 Critically low >=60 [facility] Comment on above: Performed By: #### H STROPN #### [facility] [address] [place] [address] [address] Kulwant Brennan Globulin (S) [Mass/Vol] 3.6 g/dL Normal [facility] Comment on above: Performed By: #### H STROPN #### [facility] [address] [place] [address] [address] Kulwant Brennan Glucose [Mass/Vol] 102 mg/dL Normal 74-106 [facility] Comment on above: Performed By: #### H STROPN #### [facility] [address] [place] [address] [address] Kulwant Brennan Potassium [Moles/Vol] 4.1 mmol/L Normal 3.5-5.1 [facility] Comment on above: Performed By: #### H STROPN #### [facility] [address] [place] [address] [address] Kulwant Brennan Protein [Mass/Vol] 7.7 g/dL Normal 6.4-8.2 [facility] Comment on above: Performed By: #### H STROPN #### [facility] [address] [place] [address] [address] Kulwant Brennan Sodium [Moles/Vol] 141 mmol/L Normal 136-145 [facility] Comment on above: Performed By: #### H STROPN #### [facility] [address] [place] [address] [address] Kulwant Brennan Urea nitrogen [Mass/Vol] 30.0 mg/dL Critically high 7.0-18.0 [facility] Comment on above: Performed By: #### H STROPN #### [facility] [address] [place] [address] [address] Kulwant Brennan Urea nitrogen/Creatinine [Mass ratio] 19.7 mg/mg Normal [facility] Comment on above: Performed By: #### H STROPN #### [facility] [address] [place] [address] [address] Kulwant Brennan PROTIMEon 06-04-2022 INR Coag (PPP) [Relative time] 0.99 {INR} Normal [facility] Comment on above: Performed By: #### P TT, PT ####[facility] [address] [place] [address]Dr. Kulwant Brennan INR GUIDELINES SEE BELOW Normal [facility] Comment on above: Result Comment: HAYDEE RED INR: 2.0 - 3.0 CONDITIONS NOT LISTED BELOW 2.5 - 3.5 FOR PROSTHETIC HEART VALVE REPLACEMENT 2.5 - 3.5 RECURRENT THROMBOSIS Performed By: #### P TT, PT ####[facility] [address] [place] [address]Dr. Kulwant Brennan PT Coag (PPP) [Time] 10.5 s Normal 9.0-11.6 [facility] Comment on above: Performed By: #### P TT, PT ####[facility] [address] [place] [address]DrAmarjit Brennan PTTon 06-04-2022 aPTT Coag (Bld) [Time] 30.4 s Normal 22.3-36.2 [facility] Comment on above: Performed By: #### P TT, PT ####[facility] [address] [place], [place] [address]DrAmarjit Brennan TROPONIN, HIGH SENSITIVITYon 06-04-2022 HSTROP 4.5 pg/mL Normal 4.0-76.1 [facility] Comment on above: Result Comment: CUT- OFF POINTS HAVE BEEN ESTABLISHED BASED ON THE FOURTH UNIVERSAL DEFINITIONS OF MYOCARDIAL INFARCTION. THE UPPER REFERENCE LIMIT (URL) OF TROPONIN, DEFINED THE 99TH PERCENTILE OF cTnI DISTRIBUTION IN A REFERENCE POPULATION, HAS BEEN CONFIRMED THE DECISION THRESHOLD FOR ND DIAGNOSIS. Performed By: #### H STROPN ####[facility] [address] [place], [place] [address]LoDr. Kulwant Brennan HSTROP 4.3 pg/mL Normal 4.0-76.1 [facility] Comment on above: Result Comment: CUT- OFF POINTS HAVE BEEN ESTABLISHED BASED ON THE FOURTH UNIVERSAL DEFINITIONS OF MYOCARDIAL INFARCTION. THE UPPER REFERENCE LIMIT (URL) OF TROPONIN, DEFINED THE 99TH PERCENTILE OF cTnI DISTRIBUTION IN A REFERENCE POPULATION, HAS BEEN CONFIRMED THE DECISION THRESHOLD FOR ND DIAGNOSIS. Performed By: #### H STROPN #### [facility] [address] [place], [place] [address] Dr. Kulwant Brennan TSHon 06-04-2022 TSH 2.572 uIU/mL Normal 0.358-3.74 0 [facility] Comment on above: Performed By: #### L ACT #### [facility] [address] [place], [place] [address] Dr. Kulwant Brennan XR CHEST 1 Von [...] by: FLORENTIN SAID Date: 2022-06-04 04:40 Normal [facility] XR CHEST 2 Von 06-04-2022 XR [...] by: NICOLE CASAREZ Date: 2022-06-04 16:28 Normal [facility] XR Hand Complete Left*on XR Hand [...] on 04/17/2022 1415 Normal [facility] ECHO LIMITED STUDYon 022 ECHO LIMITED STUDY Patient: YOLI ANTUNEZ Exam Date: 03/22/2022 : 1955 Gender:M Ordering : YANDEL SHEN [facility] Admission #: [id number] Family : Order #: [id number] CLICK HERE TO VIEW EXAM ECHOCARDIOGRAM REPORT [...] M.D. on 03/22/2022 at 20:31 Normal [facility] XR Abdomen Single View (KUB) *on [...] on 03/21/2022 0944 Normal [facility] AMYLASEon 02-05-2022 Amylase [Catalytic activity/Vol] 58 U/L Normal 25-115 [facility] Comment on above: Performed By: #### L IPA, YAHIR, CMP #### [facility] [address] [place], [place] [address] Dr. Kulwant Brennan CBC AUTO DIFFon 02-05-2022 BASO # 0.1 103/ul Normal 0.0-0.1 [facility] Comment on above: Performed By: #### L ACT #### [facility] [address] [place], [place] [address] Dr. Kulwant Brennan Basophils/100 WBC (Bld) 0.8 % Normal 0.2-2.0 [facility] Comment on above: Performed By: #### L ACT #### [facility] [address] [place] [address] [address] Kulwant Brennan EO # 0.2 103/ul Normal 0.0-0.7 [facility] Comment on above: Performed By: #### L ACT #### [facility] [address] [place] [address] Dr. Kulwant Brennan Eosinophils/100 WBC (Bld) 2.3 % Normal 0.9-7.0 [facility] Comment on above: Performed By: #### L ACT #### [facility] [address] [place] [address] Dr. Kulwant Brennan Erythrocyte distribution width (RBC) [Ratio] 14.6 % Normal 11.0-15.0 [facility] Comment on above: Performed By: #### L ACT #### [facility] [address] [place] [address] Dr. Kulwant Brennan Hematocrit (Bld) [Volume fraction] 39.9 % Critically low 42.0-54.0 [facility] Comment on above: Performed By: #### L ACT #### [facility] [address] [place] [address] Dr. Kulwant Brennan Hemoglobin (Bld) [Mass/Vol] 12.7 g/dL Critically low 14.0-18.0 [facility] Comment on above: Performed By: #### L ACT #### [facility] [address] [place] [address] Dr. Kulwant Brennan IG # 0.03 10e3/ul Normal 0.00-0.03 [facility] Comment on above: Performed By: #### L ACT #### [facility] [address] [place] [address] Dr. Kulwant Brennan IG % 0.5 % Normal 0.0-0.5 [facility] Comment on above: Performed By: #### L ACT #### [facility] [address] [place] [address] Dr. Kulwant Brennan LYMPH # 1.9 103/ul Normal 1.2-3.8 [facility] Comment on above: Performed By: #### L ACT #### [facility] [address] [place] [address] Dr. Kulwant Brennan Lymphocytes/100 WBC (Bld) 28.3 % Normal 20.5-60.0 [facility] Comment on above: Performed By: #### L ACT #### [facility] [address] [place] [address] Dr. Kulwant Brennan MANUAL DIFF REQ NO Normal [facility] Comment on above: Performed By: #### L ACT #### [facility] [address] [place] [address] Dr. Kulwant Brennan MCH (RBC) [Entitic mass] 27.4 pg Normal 25.9-34.0 [facility] Comment on above: Performed By: #### L ACT #### [facility] [address] [place] [address] Dr. Kulwant Brennan MCHC (RBC) [Mass/Vol] 31.8 g/dL Normal 29.9-35.2 [facility] Comment on above: Performed By: #### L ACT #### [facility] [address] [place] [address] Dr. Kulwant Brennan MCV (RBC) [Entitic vol] 86.0 fL Normal 80.0-94.0 [facility] Comment on above: Performed By: #### L ACT #### [facility] [address] [place] [address] Dr. Kulwant Brennan MONO # 0.7 103/ul Normal 0.3-0.8 [facility] Comment on above: Performed By: #### L ACT #### [facility] [address] [place] [address] Dr. Kulwant Brennan Monocytes/100 WBC (Bld) 10.4 % Normal 1.7-12.0 [facility] Comment on above: Performed By: #### L ACT #### [facility] [address] [place] [address] Dr. Kulwant Brennan NEUT # 3.8 103/ul Normal 1.4-6.5 [facility] Comment on above: Performed By: #### L ACT #### [facility] [address] [place] [address] [address] Kulwant Brennan Neutrophils/100 WBC (Bld) 57.7 % Normal 43.0-75.0 [facility] Comment on above: Performed By: #### L ACT #### [facility] [address] [place] [address] [address] Kulwant Brennan Platelet mean volume (Bld) [Entitic vol] 9.9 fL Normal 9.5-13.5 [facility] Comment on above: Performed By: #### L ACT #### [facility] [address] [place] [address] [address] Kulwant Brennan PLT 224 103/ul Normal 150-450 [facility] Comment on above: Performed By: #### L ACT #### [facility] [address] [place] [address] [address] Kulwant Brennan RBC 4.64 106/ul Critically low 4.70-6.[address] [facility] Comment on above: Performed By: #### L ACT #### [facility] [address] [place] [address] [address] Kulwant Brennan WBC 6.6 103/ul Normal 4.0-11.0 [facility] Comment on above: Performed By: #### L ACT #### [facility] [address] [place] [address] [address] Kulwant Brennan LIPASEon 02-05-2022 Lipase [Catalytic activity/Vol] 174.0 U/L Normal 73.0-393.0 [facility] Comment on above: Performed By: #### L YAHIR NG, CMP #### [facility] [address] [place] [address] [address] Kulwant Brennan PROF 14(COMP METB)on 022 Albumin [Mass/Vol] 4.2 g/dL Normal 3.4-5.0 [facility] Comment on above: Performed By: #### L YAHIR NG, CMP #### [facility] [address] [place] [address] [address] Kulwant Brennan Albumin/Globulin [Mass ratio] 1.0 {ratio} Normal [facility] Comment on above: Performed By: #### L IPA, YAHIR, CMP #### [facility] [address] [place] [address] [address] Kulwant Brennan ALP [Catalytic activity/Vol] 106 U/L Normal 46-116 [facility] Comment on above: Performed By: #### L IPA, YAHIR, CMP #### [facility] [address] [place] [address] [address] Kulwant Brennan ALT [Catalytic activity/Vol] 91 U/L Critically high 16-63 [facility] Comment on above: Performed By: #### L IPA, YAHIR, CMP #### [facility] [address] [place] [address] [address] Kulwant Brennan Anion gap [Moles/Vol] 13.8 mmol/L Normal [facility] Comment on above: Performed By: #### L IPA, YAHIR, CMP #### [facility] [address] [place] [address] [address] Kulwant Brennan AST [Catalytic activity/Vol] 26 U/L Normal 15-37 [facility] Comment on above: Performed By: #### L IPA YAHIR, CMP #### [facility] [address] [place] [address] [address] Kulwant Brennan Bilirubin [Mass/Vol] 0.5 mg/dL Normal 0.2-1.0 [facility] Comment on above: Performed By: #### L IPA, YAHIR, CMP #### [facility] [address] [place] [address] [address] Kulwant Brennan Calcium [Mass/Vol] 8.3 mg/dL Critically low 8.5-10.1 [facility] Comment on above: Performed By: #### L IPA, YAHIR, CMP #### [facility] [address] [place] [address] [address] Kulwant Brennan Chloride [Moles/Vol] 103 mmol/L Normal 98-107 [facility] Comment on above: Performed By: #### L IPA, YAHIR, CMP #### [facility] [address] [place] [address] [address] Kulwant Brennan CO2 [Moles/Vol] 26.5 mmol/L Normal 21.0-32.0 [facility] Comment on above: Performed By: #### L YAHIR NG, CMP #### [facility] [address] [place] [address] Dr. Kulwant Brennan Creatinine [Mass/Vol] 1.37 mg/dL Critically high 0.70-1.30 [facility] Comment on above: Performed By: #### L YAHIR NG, CMP #### [facility] [address] [place] [address] [address] Kulwant Brennan EGFR-AF SRI LANKAN >60 Normal >=60 [facility] Comment on above: Performed By: #### L YAHIR NG, CMP #### [facility] [address] [place] [address] Dr. Kulwant Brennan EGFR-NON AF SRI LANKAN 52 mL/min/1.73m2 Critically low >=60 [facility] Comment on above: Performed By: #### L YAHIR NG, CMP #### [facility] [address] [place] [address] Dr. Kulwant Brennan Globulin (S) [Mass/Vol] 4.1 g/dL Normal [facility] Comment on above: Performed By: #### L YAHIR NG, CMP #### [facility] [address] [place] [address] Dr. Kulwant Brennan Glucose [Mass/Vol] 96 mg/dL Normal 74-106 [facility] Comment on above: Performed By: #### L YAHIR NG, CMP #### [facility] [address] [place] [address] Dr. Kulwant Brennan Potassium [Moles/Vol] 4.3 mmol/L Normal 3.5-5.1 [facility] Comment on above: Performed By: #### L YAHIR NG, CMP #### [facility] [address] [place] [address] Dr. Kulwant Brennan Protein [Mass/Vol] 8.3 g/dL Critically high 6.4-8.2 [facility] Comment on above: Performed By: #### L YAHIR NG, CMP #### [facility] [address] [place] [address] Dr. Kulwant Brennan Sodium [Moles/Vol] 139 mmol/L Normal 136-145 [facility] Comment on above: Performed By: #### L YAHIR NG, CMP #### [facility] [address] [place] [address] Dr. Kulwant Brennan Urea nitrogen [Mass/Vol] 27.0 mg/dL Critically high 7.0-18.0 [facility] Comment on above: Performed By: #### L YAHIR NG, CMP #### [facility] [address] [place] [address] Dr. Kulwant Brennan Urea nitrogen/Creatinine [Mass ratio] 19.7 mg/mg Normal [facility] Comment on above: Performed By: #### L YAHIR NG, CMP #### [facility] [address] [place] [address] Dr. Kulwant Brennan CBC AUTO DIFFon 01-09-2022 BASO # 0.1 103/ul Normal 0.0-0.1 [facility] Comment on above: Performed By: #### H STROPN #### [facility] [address] [place] [address] Dr. Kulwant Brennan Basophils/100 WBC (Bld) 0.5 % Normal 0.2-2.0 [facility] Comment on above: Performed By: #### H STROPN #### [facility] [address] [place] [address] Dr. Kulwant Brennan EO # 0.2 103/ul Normal 0.0-0.7 [facility] Comment on above: Performed By: #### H STROPN #### [facility] [address] [place] [address] Dr. Kulwant Brennan Eosinophils/100 WBC (Bld) 2.3 % Normal 0.9-7.0 [facility] Comment on above: Performed By: #### H STROPN #### [facility] [address] [place] [address] Dr. Kulwant Brennan Erythrocyte distribution width (RBC) [Ratio] 14.6 % Normal 11.0-15.0 [facility] Comment on above: Performed By: #### H STROPN #### [facility] [address] [place] [address] [address] Kulwant Brennan Hematocrit (Bld) [Volume fraction] 35.8 % Critically low 42.0-54.0 [facility] Comment on above: Performed By: #### H STROPN #### [facility] [address] [place] [address] [address] Kulwant Brennan Hemoglobin (Bld) [Mass/Vol] 11.4 g/dL Critically low 14.0-18.0 [facility] Comment on above: Performed By: #### H STROPN #### [facility] [address] [place] [address] [address] Kulwant Brennan IG # 0.33 10e3/ul Critically high 0.00-0.03 [facility] Comment on above: Performed By: #### H STROPN #### [facility] [address] [place] [address] Dr. Kulwant Brennan IG % 3.2 % Critically high 0.0-0.5 [facility] Comment on above: Performed By: #### H STROPN #### [facility] [address] [place] [address] [address] Kulwant Brennan LYMPH # 1.9 103/ul Normal 1.2-3.8 [facility] Comment on above: Performed By: #### H STROPN #### [facility] [address] [place] [address] Dr. Kulwant Brennan Lymphocytes/100 WBC (Bld) 18.3 % Critically low 20.5-60.0 [facility] Comment on above: Performed By: #### H STROPN #### [facility] [address] [place] [address] [address] Kulwant Brennan MANUAL DIFF REQ NO Normal [facility] Comment on above: Performed By: #### H STROPN #### [facility] [address] [place] [address] Dr. Kulwant Brennan MCH (RBC) [Entitic mass] 26.8 pg Normal 25.9-34.0 [facility] Comment on above: Performed By: #### H STROPN #### [facility] [address] [place] [address] [address] Kulwant Brennan MCHC (RBC) [Mass/Vol] 31.8 g/dL Normal 29.9-35.2 [facility] Comment on above: Performed By: #### H STROPN #### [facility] [address] [place] [address] [address] Kulwant Brennan MCV (RBC) [Entitic vol] 84.0 fL Normal 80.0-94.0 [facility] Comment on above: Performed By: #### H STROPN #### [facility] [address] [place] [address] [address] Kulwant Brennan MONO # 0.9 103/ul Critically high 0.3-0.8 [facility] Comment on above: Performed By: #### H STROPN #### [facility] [address] [place] [address] Dr. Kulwant Brennan Monocytes/100 WBC (Bld) 9.2 % Normal 1.7-12.0 [facility] Comment on above: Performed By: #### H STROPN #### [facility] [address] [place] [address] [address] Kulwant Brennan NEUT # 6.8 103/ul Critically high 1.4-6.5 [facility] Comment on above: Performed By: #### H STROPN #### [facility] [address] [place] [address] Dr. Kulwant Brennan Neutrophils/100 WBC (Bld) 66.5 % Normal 43.0-75.0 [facility] Comment on above: Performed By: #### H STROPN #### [facility] [address] [place] [address] [address] Kuwlant Brennan Platelet mean volume (Bld) [Entitic vol] 10.5 fL Normal 9.5-13.5 [facility] Comment on above: Performed By: #### H STROPN #### [facility] [address] [place] [address] [address] Kulwant Brennan PLT 357 103/ul Normal 150-450 [facility] Comment on above: Performed By: #### H STROPN #### [facility] [address] [place] [address] [address] Kulwant Brennan RBC 4.26 106/ul Critically low 4.70-6.10 [facility] Comment on above: Performed By: #### H STROPN #### [facility] [address] [place] [address] [address] Kulwant Brennan WBC 10.2 103/ul Normal 4.0-11.0 [facility] Comment on above: Performed By: #### H STROPN #### [facility] [address] [place] [address] [address] Kulwant Brennan PROF 14(COMP METB)on 022 Albumin [Mass/Vol] 3.3 g/dL Critically low 3.4-5.0 [facility] Comment on above: Performed By: #### T SH, CMP ####[facility] [address] [place] [address]DrAmarjit Brennan Albumin/Globulin [Mass ratio] 0.8 {ratio} Normal [facility] Comment on above: Performed By: #### T SH, CMP ####[facility] [address] [place] [address]DrAmarjit Brennan ALP [Catalytic activity/Vol] 151 U/L Critically high 46-116 [facility] Comment on above: Performed By: #### T SH, CMP ####[facility] [address] [place] [address]DrAmarjit Brennan ALT [Catalytic activity/Vol] 118 U/L Critically high 16-63 [facility] Comment on above: Performed By: #### T SH, CMP ####[facility] [address] [place] [address]DrAmarjit Brennan Anion gap [Moles/Vol] 12.3 mmol/L Normal [facility] Comment on above: Performed By: #### T SH, CMP ####[facility] [address] [place] [address]DrAmarjit Brennan AST [Catalytic activity/Vol] 65 U/L Critically high 15-37 [facility] Comment on above: Performed By: #### T SH, CMP ####[facility] [address] [place] [address]Dr. Kulwant Brennan Bilirubin [Mass/Vol] 0.5 mg/dL Normal 0.2-1.0 [facility] Comment on above: Performed By: #### T SH, CMP ####[facility] [address] [place], [place] [address]Dr. Kulwant Brennan Calcium [Mass/Vol] 5.3 mg/dL Critically low 8.5-10.1 [facility] Comment on above: Performed By: #### T SH, CMP ####[facility] [address] [place], [place] [address]Dr. Kulwant Brennan Chloride [Moles/Vol] 104 mmol/L Normal 98-107 [facility] Comment on above: Performed By: #### T SH, CMP ####[facility] [address] [place], [place] [address]Dr. Kulwant Brennan CO2 [Moles/Vol] 26.7 mmol/L Normal 21.0-32.0 [facility] Comment on above: Performed By: #### T SH, CMP ####[facility] [address] [place], [place] [address]Dr. Kulwant Mika Creatinine [Mass/Vol] 2.08 mg/dL Critically high 0.70-1.30 [facility] Comment on above: Performed By: #### T SH, CMP ####[facility] [address] [place], [place] [address]Dr. Kulwant Mika EGFR-AF SRI LANKAN 39 mL/min/1.73m2 Critically low >=60 [facility] Comment on above: Performed By: #### T SH, CMP ####[facility] [address] [place], [place] [address]Dr. Kulwant Brennan EGFR-NON AF SRI LANKAN 32 mL/min/1.73m2 Critically low >=60 [facility] Comment on above: Performed By: #### T SH, CMP ####[facility] [address] [place], [place] [address]Dr. Kulwant Brennan Globulin (S) [Mass/Vol] 4.1 g/dL Normal [facility] Comment on above: Performed By: #### T RAJEEV, CMP ####[facility] [address] [place] [address]Dr. Kulwant Brennan Glucose [Mass/Vol] 89 mg/dL Normal 74-106 [facility] Comment on above: Performed By: #### T RAJEEV, CMP ####[facility] [address] [place], [place] [address]Dr. Kulwant Brennan Potassium [Moles/Vol] 4.0 mmol/L Normal 3.5-5.1 [facility] Comment on above: Performed By: #### T RAJEEV, CMP ####[facility] [address] [place], [place] [address]Dr. Kulwant Brennan Protein [Mass/Vol] 7.4 g/dL Normal 6.4-8.2 [facility] Comment on above: Performed By: #### T RAJEEV, CMP ####[facility] [address] [place], [place] [address]Dr. Kulwant Brennan Sodium [Moles/Vol] 139 mmol/L Normal 136-145 [facility] Comment on above: Performed By: #### T RAJEEV, CMP ####[facility] [address] [place], [place] [address]Dr. Kulwant Brennan Urea nitrogen [Mass/Vol] 28.0 mg/dL Critically high 7.0-18.0 [facility] Comment on above: Performed By: #### T RAJEEV, CMP ####[facility] [address] [place], [place] [address]Dr. Kulwant Brennan Urea nitrogen/Creatinine [Mass ratio] 13.5 mg/mg Normal [facility] Comment on above: Performed By: #### T RAJEEV, CMP ####[facility] [address] [place], [place] [address]Dr. Kulwant Brennan TSHon 01-09-2021 TSH 20.234 uIU/mL Critically high 0.358-3.74 0 [facility] Comment on above: Performed By: #### T RAJEEV, CMP ####[facility] [address] [place], [place] [address]Fg. Kulwant Brennan Cult, Bloodon 01-06-2022 Cult, Blood Specimen Description .BLOOD Special Requests RT AC 6ML Culture NO GROWTH 5 DAYS Report Status FINAL 01/06/2022 Normal [facility] Comment on above: Performed By: #### U RNA, URTPRT, UMICAO, UEOS, UA #### [facility] [address] [place] [address] [employer]: Ronn Arias MD Cult,Bloodon 01-06-2022 Cult,Blood Specimen Description .BLOOD Special Requests LT HAND 6ML Culture NO GROWTH 5 DAYS Report Status FINAL 01/06/2022 Normal [facility] Comment on above: Performed By: #### U RNA, URTPRT, UMICAO, UEOS, UA #### [address] [address] [employer]: Ronn Arias MD KYLE SCREEN WITH REFLEXon Anti ds DNA 5.8 NINF [facility] Comment on above: Reference Range: <10.0 Negative 10.0-15.0 Equivocal >15.0 Positive ARJUN Antibodies Screen 0.3 U[facility]mL [facility] Comment on above: Reference Range: <0.7 Negative 0.7-1.0 Equivocal >1.0 Positive ARJUN Screen includes U1RNP,RNP70,Sm,Ro(SS-A),La(SS-B),CENP,Scl-70,Pippa-1 Nuclear Ab IF (S) [Titer] Negative NEGATIVE [facility] KYLE Screen w/reflexon 2021 KYLE Screen Negative Normal NEG [facility] Comment on above: Performed By: #### U RNA, URTPRT, UMICAO, UEOS, UA #### [facility] [place] [address] [employer]: Ronn Arias MD Anti-dsDNA 5.8 IU/mL Normal <10.0 [facility] Comment on above: Result Comment: Reference Range: <10.0 Negative 10.0-15.0 Equivocal >15.0 Positive Performed By: #### U RNA, URTPRT, UMICAO, UEOS, UA #### [facility] [address] [place], [place] [id number] [employer]: Ronn Arias MD ARJUN Screen 0.3 U/mL Normal <0.7 [facility] Comment on above: Result Comment: Reference Range: <0.7 Negative 0.7-1.0 Equivocal >1.0 Positive ARJUN Screen includes U1RNP,RNP70,Sm,Ro(SS-A),La(SS-B),CENP,Scl-70,Pippa-1 Performed By: #### U RNA, URTPRT, UMICAO, UEOS, UA #### [facility] [address] [place] [address] [employer]: Ronn Arias MD Basic Metabolic Panel - Anion gap [Moles/Vol] 14 mmol/L 9 - 17 mmol/L [facility] Calcium [Mass/Vol] 6.4 mg/dL Low 8.6 - 10. 4 mg/dL [facility] Chloride [Moles/Vol] 108 mmol/L High 98 - 10 7 mmol/L [facility] CO2 [Moles/Vol] 25 mmol/L 20 - 31 mmol/L [facility] Creatinine [Mass/Vol] 2.5 mg/dL High 0.7 - 1.2 mg/dL [facility] GFR 31 mL/min Low 60 - PI NF mL/min [facility] GFR Non- 26 mL/min Low 60 - PINF mL/min [facility] GFR/1.73 sq M.predicted MDRD (S/P/Bld) [Vol rate/Area] [facility] Comment on above: Average GFR for 60-6 9 years old: 85 mL/min/1.73sq m Chronic Kidney Disease: <60 mL/min/1.73sq m Kidney failure: <15 mL/min/1.73sq m eGFR calculated using average adult body mass. Additional eGFR calculator available at: http://www.[employer]/multiple_crcl_2012.htm Glucose [Mass/Vol] 99 mg/dL 70 - 99 mg/dL [facility] Interpretation and review of laboratory results Abnormal [facility] Potassium [Moles/Vol] 4.6 mmol/L 3.7 - 5.3 mmol/L [facility] Sodium [Moles/Vol] 147 mmol/L High 135 - 144 mmol/L [facility] Urea nitrogen (BldV) [Mass/Vol] 40 mg/dL High 8 - 23 mg/dL [facility] Basic Metabolic Profon 01-05 (cont.) Normal [facility] Comment on above: Result Comment: Aver age GFR for 60-69 years old: 85 mL/min/1.73sq m Chronic Kidney Disease: <60 mL/min/1.73sq m Kidney failure: <15 mL/min/1.73sq m eGFR calculated using average adult body mass. Additional eGFR calculator available at: http://www.[employer]/Bidgely_crcl_2012.htm Performed By: #### U RNA, URTPRT, UMICAO, UEOS, UA #### [facility] [address] [place] [address] [employer]: Ronn Arias MD Anion gap [Moles/Vol] 14 mmol/L Normal - [facility] Comment on above: Performed By: #### U RNA, URTPRT, UMICAO, UEOS, UA #### [facility] [address] [place] [address] [employer]: Ronn Arias MD Calcium [Mass/Vol] 6.4 mg/dL Low 8.6-10.4 [facility] Comment on above: Performed By: #### U RNA, URTPRT, UMICAO, UEOS, UA #### [facility] [address] [place] [address] [employer]: Ronn Arias MD Chloride [Moles/Vol] 108 mmol/L High 98-107 [facility] Comment on above: Performed By: #### U RNA, URTPRT, UMICAO, UEOS, UA #### [facility] [address] [place] [address] Tree Chipper: Ronn Arias MD CO2 [Moles/Vol] 25 mmol/L Normal 20-31 [facility] Comment on above: Performed By: #### U RNA, URTPRT, UMICAO, UEOS, UA #### [facility] [address] [place] [address] Tree Chipper: Ronn Arias MD Creatinine [Mass/Vol] 2.50 mg/dL High 0.70-1.20 [facility] Comment on above: Performed By: #### U RNA, URTPRT, UMICAO, UEOS, UA #### [address] [address] Tree Chipper: Ronn Arias MD GFR, Amer 31 mL/min Low >60 [facility] Comment on above: Performed By: #### U RNA, URTPRT, UMICAO, UEOS, UA #### [address] [address] Tree Chipper: Ronn Arias MD GFR,non Amer 26 mL/min Low >60 [facility] Comment on above: Performed By: #### U RNA, URTPRT, UMICAO, UEOS, UA #### [facility] [address] [place] [address] Tree Chipper: Ronn Arias MD Glucose [Mass/Vol] 99 mg/dL Normal 70-99 [facility] Comment on above: Performed By: #### U RNA, URTPRT, UMICAO, UEOS, UA #### [facility] [address] [place] [address] Tree Chipper: Ronn Arias MD Potassium [Moles/Vol] 4.6 mmol/L Normal 3.7-5.3 [facility] Comment on above: Performed By: #### U RNA, URTPRT, UMICAO, UEOS, UA #### [facility] [address] [place] [address] Tree Chipper: Ronn Arias MD Sodium [Moles/Vol] 147 mmol/L High 135-144 [facility] Comment on above: Performed By: #### U RNA, URTPRT, UMICAO, UEOS, UA #### [facility] [address] [place] [address] Tree Chipper: Ronn Arias MD Urea nitrogen [Mass/Vol] 40 mg/dL High 8-23 [facility] Comment on above: Performed By: #### U RNA, URTPRT, UMICAO, UEOS, UA #### [facility] [address] [place] [address] Tree Chipper: Ronn Arias MD IMMUNOFIXATION SERUM PROFILE on 01-05-2022 Pathologist Cyto stain Nom (Cvx/Vag) [ID] Reviewed by pathologist: Kailee Portillo M.D. [facility] Serum IFX Interp IMMUNOFIXATION IS NE GATIVE FOR MONOCLONAL IMMUNOGLOBULIN. [facility] Immunofixation,Bloodon 01-05 IFX - Interpret. IMMUNOFIXATION IS NE GATIVE FOR MONOCLONAL IMMUNOGLOBULIN. Normal [facility] Comment on above: Performed By: #### U RNA, URTPRT, UMICAO, UEOS, UA #### [facility] [address] [place] [address] Tree Chipper: Ronn Arias MD Pathologist Review: Reviewed by patholog ist: Kailee Portillo M.D. [facility] Comment on above: Performed By: #### U RNA, URTPRT, UMICAO, UEOS, UA #### [facility] [address] [place] [address] Tree Chipper: Ronn Arias MD Basic Metab w/rfx MGon 01-04 (cont.) [facility] Comment on above: Result Comment: Aver age GFR for 60-69 years old: 85 mL/min/1.73sq m Chronic Kidney Disease: <60 mL/min/1.73sq m Kidney failure: <15 mL/min/1.73sq m eGFR calculated using average adult body mass. Additional eGFR calculator available at: http://www.[employer]/multiple_crcl_2012.htm Performed By: #### U RNA, URTPRT, UMICAO, UEOS, UA #### [facility] [address] [place] [address] Tree Chipper: Ronn Arias MD Anion gap [Moles/Vol] 13 mmol/L Normal 9-17 [facility] Comment on above: Performed By: #### U RNA, URTPRT, UMICAO, UEOS, UA #### [facility] [address] [place] [address] Tree Chipper: Ronn Arias MD Calcium [Mass/Vol] 6.6 mg/dL Low 8.6-10.4 [facility] Comment on above: Performed By: #### U RNA, URTPRT, UMICAO, UEOS, UA #### [facility] [address] [place] [address] Tree Chipper: Ronn Arias MD Chloride [Moles/Vol] 107 mmol/L Normal 98-107 [facility] Comment on above: Performed By: #### U RNA, URTPRT, UMICAO, UEOS, UA #### [employer] [address] [place] [address] Tree Chipper: Ronn Arias MD CO2 [Moles/Vol] 21 mmol/L Normal 20-31 [facility] Comment on above: Performed By: #### U RNA, URTPRT, UMICAO, UEOS, UA #### [address] [address] Tree Chipper: Ronn Arias MD Creatinine [Mass/Vol] 3.07 mg/dL High 0.70-1.20 [facility] Comment on above: Performed By: #### U RNA, URTPRT, UMICAO, UEOS, UA #### [address] [address] Tree Chipper: Ronn Arias MD GFR, Amer 25 mL/min Low >60 [facility] Comment on above: Performed By: #### U RNA, URTPRT, UMICAO, UEOS, UA #### [facility] [address] [place] [address] Tree Chipper: Ronn Arias MD GFR,non Amer 20 mL/min Low >60 [facility] Comment on above: Performed By: #### U RNA, URTPRT, UMICAO, UEOS, UA #### [address] [address] Tree Chipper: Ronn Arias MD Glucose [Mass/Vol] 95 mg/dL Normal 70-99 [facility] Comment on above: Performed By: #### U RNA, URTPRT, UMICAO, UEOS, UA #### [facility] [address] [place] [address] Tree Chipper: Ronn Arias MD Potassium [Moles/Vol] 4.3 mmol/L Normal 3.7-5.3 [facility] Comment on above: Performed By: #### U RNA, URTPRT, UMICAO, UEOS, UA #### [facility] [address] [place], [place] [phone] Tree Chipper: Ronn Arias MD Sodium [Moles/Vol] 141 mmol/L Normal 135-144 [facility] Comment on above: Performed By: #### U RNA, URTPRT, UMICAO, UEOS, UA #### [facility] [address] [place], [place] [phone] Tree Chipper: Ronn Arias MD Urea nitrogen [Mass/Vol] 54 mg/dL High 8-23 [facility] Comment on above: Performed By: #### U RNA, URTPRT, UMICAO, UEOS, UA #### [facility] [address] [place], [place] [phone] Tree Chipper: Ronn Arias MD Basic Metabolic Panel w/ Ref luz to MGon 01-04-2022 Anion gap [Moles/Vol] 13 mmol/L 9 - 17 mmol/L [employer] Calcium [Mass/Vol] 6.6 mg/dL Low 8.6 - 10. 4 mg/dL [employer] Chloride [Moles/Vol] 107 mmol/L 98 - 10 7 mmol/L [employer] CO2 [Moles/Vol] 21 mmol/L 20 - 31 mmol/L [employer] Creatinine [Mass/Vol] 3.07 mg/dL High 0.7 - 1.2 mg/dL [employer] GFR 25 mL/min Low 60 - PI NF mL/min [employer] GFR Non- 20 mL/min Low 60 - PINF mL/min [employer] GFR/1.73 sq M.predicted MDRD (S/P/Bld) [Vol rate/Area] [employer] Comment on above: Average GFR for 60-6 9 years old: 85 mL/min/1.73sq m Chronic Kidney Disease: <60 mL/min/1.73sq m Kidney failure: <15 mL/min/1.73sq m eGFR calculated using average adult body mass. Additional eGFR calculator available at: http://www.[employer]JH/multiple_crcl_2012.htm Glucose [Mass/Vol] 95 mg/dL 70 - 99 mg/dL [facility] Interpretation and review of laboratory results Abnormal [facility] Potassium [Moles/Vol] 4.3 mmol/L 3.7 - 5.3 mmol/L [facility] Sodium [Moles/Vol] 141 mmol/L 135 - 144 mmol/L [facility] Urea nitrogen (BldV) [Mass/Vol] 54 mg/dL High 8 - 23 mg/dL [facility] CBC with Auto Differentialon 01-04-2022 Absolute Eos # 0.19 [facility] Absolute Immature Granulocyte 0.09 [facility] Absolute Lymph # 1.34 [facility] Absolute [place] # 1.01 [facility] Basophils Absolute [facility] Basophils/100 WBC (Bld) 0 % 0 - 2 % [facility] Eosinophils/100 WBC (Bld) 2 % 1 - 4 % [facility] Hematocrit (Bld) [Volume fraction] 28.4 % Low 40.7 - 50.3 % [facility] Hemoglobin (Bld) [Mass/Vol] 9.3 g/dL Low 13 - 17 g/dL [facility] Immature granulocytes/100 WBC (Bld) 1 % High 0 [facility] Interpretation and review of laboratory results Abnormal [facility] Lymphocytes/100 WBC (Bld) 11 % Low 24 - 43 % [facility] MCH (RBC) [Entitic mass] 27.4 pg 25.2 - 33.5 pg [facility] MCHC (RBC) [Mass/Vol] 32.7 g/dL 28.4 - 34.8 g/dL [facility] MCV (RBC) [Entitic vol] 83.8 fL 82.6 - 102.9 fL [facility] Monocytes/100 WBC (Bld) 8 % 3 - 12 % [facility] NRBC Automated 0.0 0.0 per 100 WBC [facility] Platelet distribution width (Bld) [Ratio] 14.3 % 11.8 - 14.4 % [facility] Platelet mean volume (Bld) [Entitic vol] 10.6 fL 8.1 - 13.5 fL [facility] Platelets (Bld) [#/Vol] 177 10*3/uL [facility] RBC (Bld) [#/Vol] 3.39 10*6/uL Low 4.21 - 5.77 m/uL [facility] Segmented neutrophils/100 WBC (Bld) 78 % High 36 - 65 % [facility] Segs Absolute 9.54 High [facility] WBC (Bld) [#/Vol] 12.2 10*3/uL High [facility] CBC with Diffon 01-04-2022 Abs. Basophil <0.03 Normal 0.00-0.20 [facility] Comment on above: Performed By: #### U RNA, URTPRT, UMICAO, UEOS, UA #### [employer] [address] [place] [address] Tree Chipper: Ronn Arias MD Abs.Imm.Granulocyte 0.09 k/uL Normal 0.00-0.30 [facility] Comment on above: Performed By: #### U RNA, URTPRT, UMICAO, UEOS, UA #### [employer] [address] [place] [address] Tree Chipper: Ronn Arias MD Abs.Neutrophil (Seg) 9.54 k/uL High 1.50-8.10 [facility] Comment on above: Performed By: #### U RNA, URTPRT, UMICAO, UEOS, UA #### [employer] [address] [place] [address] Tree Chipper: Ronn Arias MD Basophils/100 WBC (Bld) 0 % Normal 0-2 [facility] Comment on above: Performed By: #### U RNA, URTPRT, UMICAO, UEOS, UA #### [address] [address] Tree Chipper: Ronn Arias MD Eosinophils (Bld) [#/Vol] 0.19 10*3/uL Normal 0.00-0.44 [facility] Comment on above: Performed By: #### U RNA, URTPRT, UMICAO, UEOS, UA #### [address] [address] Tree Chipper: Ronn Arias MD Eosinophils/100 WBC (Bld) 2 % Normal 1-4 [facility] Comment on above: Performed By: #### U RNA, URTPRT, UMICAO, UEOS, UA #### [address] [address] Tree Chipper: Ronn Arias MD Immature granulocytes/100 WBC (Bld) 1 % High 0 [facility] Comment on above: Performed By: #### U RNA, URTPRT, UMICAO, UEOS, UA #### [address] [address] Tree Chipper: Ronn Arias MD Lymphocytes (Bld) [#/Vol] 1.34 10*3/uL Normal 1.10-3.70 [facility] Comment on above: Performed By: #### U RNA, URTPRT, UMICAO, UEOS, UA #### [address] [address] Tree Chipper: Ronn Arias MD Lymphocytes/100 WBC (Bld) 11 % Low 24-43 [facility] Comment on above: Performed By: #### U RNA, URTPRT, UMICAO, UEOS, UA #### [address] [address] Tree Chipper: Ronn Arias MD Monocytes (Bld) [#/Vol] 1.01 10*3/uL Normal 0.10-1.20 [facility] Comment on above: Performed By: #### U RNA, URTPRT, UMICAO, UEOS, UA #### [facility] [address] [place] [address] Tree Chipper: Ronn Arias MD Monocytes/100 WBC (Bld) 8 % Normal 3-12 [facility] Comment on above: Performed By: #### U RNA, URTPRT, UMICAO, UEOS, UA #### [facility] [address] [place] [address] Tree Chipper: Ronn Arias MD Neutrophil (Seg) 78 % High 36-65 [facility] Comment on above: Performed By: #### U RNA, URTPRT, UMICAO, UEOS, UA #### [address] [address] Tree Chipper: Ronn Arias MD Erythrocyte distribution width (RBC) [Ratio] 14.3 % Normal 11.8-14.4 [facility] Comment on above: Performed By: #### U RNA, URTPRT, UMICAO, UEOS, UA #### [facility] [address] [place] [address] Tree Chipper: Ronn Arias MD Hematocrit (Bld) [Volume fraction] 28.4 % Low 40.7-50.3 [facility] Comment on above: Performed By: #### U RNA, URTPRT, UMICAO, UEOS, UA #### [facility] [address] [place] [address] Tree Chipper: Ronn Arias MD Hemoglobin (Bld) [Mass/Vol] 9.3 g/dL Low 13.0-17.0 [facility] Comment on above: Performed By: #### U RNA, URTPRT, UMICAO, UEOS, UA #### [facility] [address] [place] [address] Tree Chipper: Ronn Arias MD MCH (RBC) [Entitic mass] 27.4 pg Normal 25.2-33.5 [facility] Comment on above: Performed By: #### U RNA, URTPRT, UMICAO, UEOS, UA #### [address] [address] Tree Chipper: Ronn Airas MD MCHC (RBC) [Mass/Vol] 32.7 g/dL Normal 28.4-34.8 [facility] Comment on above: Performed By: #### U RNA, URTPRT, UMICAO, UEOS, UA #### [place] [address] Tree Chipper: Ronn Arias MD MCV (RBC) [Entitic vol] 83.8 fL Normal 82.6-102.9 [facility] Comment on above: Performed By: #### U RNA, URTPRT, UMICAO, UEOS, UA #### [address] [address] Tree Chipper: Ronn Arias MD NRBC Automated 0.0 per 100 WBC Normal 0.0 [facility] Comment on above: Performed By: #### U RNA, URTPRT, UMICAO, UEOS, UA #### [address] [address] Tree Chipper: Ronn Arias MD Platelet mean volume (Bld) [Entitic vol] 10.6 fL Normal 8.1-13.5 [facility] Comment on above: Performed By: #### U RNA, URTPRT, UMICAO, UEOS, UA #### [address] [address] Tree Chipper: Ronn Arias MD Platelets (Bld) [#/Vol] 177 10*3/uL Normal 138-453 [facility] Comment on above: Performed By: #### U RNA, URTPRT, UMICAO, UEOS, UA #### [facility] [address] [place] [address] Tree Chipper: Ronn Arias MD RBC (Bld) [#/Vol] 3.39 10*6/uL Low 4.21-5.77 [facility] Comment on above: Performed By: #### U RNA, URTPRT, UMICAO, UEOS, UA #### [facility] [address] [place] [address] Tree Chipper: Ronn Arias MD WBC (Bld) [#/Vol] 12.2 10*3/uL High 3.5-11.3 [facility] Comment on above: Performed By: #### U RNA, URTPRT, UMICAO, UEOS, UA #### [address] [address] Tree Chipper: Ronn Arias MD Basic Metab w/rfx MGon 01-03 (cont.) Normal [facility] Comment on above: Result Comment: Aver age GFR for 60-69 years old: 85 mL/min/1.73sq m Chronic Kidney Disease: <60 mL/min/1.73sq m Kidney failure: <15 mL/min/1.73sq m eGFR calculated using average adult body mass. Additional eGFR calculator available at: http://www.[employer]JH/multiple_crcl_2011.htm Performed By: #### L ACDS #### [facility] [address] [place] [address] Tree Chipper: Rnon Arias MD Anion gap [Moles/Vol] 16 mmol/L Normal - [facility] Comment on above: Performed By: #### L ACDS #### [address] [address] Tree Chipper: Ronn Arias MD Calcium [Mass/Vol] 6.9 mg/dL Low 8.6-10.4 [facility] Comment on above: Performed By: #### L ACDS #### [address] [address] Tree Chipper: Ronn Arias MD Chloride [Moles/Vol] 106 mmol/L Normal 98-107 [facility] Comment on above: Performed By: #### L ACDS #### [address] [address] Tree Chipper: Ronn Arias MD CO2 [Moles/Vol] 16 mmol/L Low 20-31 [facility] Comment on above: Performed By: #### L ACDS #### [address] [address] Tree Chipper: Ronn Arias MD Creatinine [Mass/Vol] 3.44 mg/dL High 0.70-1.20 [facility] Comment on above: Performed By: #### L ACDS #### [address] [address] Tree Chipper: Ronn Arias MD GFR, Amer 22 mL/min Low >60 [facility] Comment on above: Performed By: #### L ACDS #### [address] [address] Tree Chipper: Ronn Arias MD GFR,non Amer 18 mL/min Low >60 [facility] Comment on above: Performed By: #### L ACDS #### [address] [address] Tree Chipper: Ronn Arias MD Glucose [Mass/Vol] 138 mg/dL High 70-99 [facility] Comment on above: Performed By: #### L ACDS #### [address] [id number] Tree Chipper: Ronn Arias MD Potassium [Moles/Vol] 4.8 mmol/L Normal 3.7-5.3 [facility] Comment on above: Performed By: #### L ACDS #### [facility] [address] [place], [place] [phone] Tree Chipper: Ronn Arias MD Sodium [Moles/Vol] 138 mmol/L Normal 135-144 [facility] Comment on above: Performed By: #### L ACDS #### [facility] [address] [place], [place] [phone] Tree Chipper: Ronn Arias MD Urea nitrogen [Mass/Vol] 53 mg/dL High 8-23 [facility] Comment on above: Performed By: #### L ACDS #### [facility] [address] [place], [place] [id number] Tree Chipper: Ronn Arias MD Basic Metabolic Panel w/ Ref luz to MGon 01-03-2022 Anion gap [Moles/Vol] 16 mmol/L 9 - 17 mmol/L [employer] Calcium [Mass/Vol] 6.9 mg/dL Low 8.6 - 10. 4 mg/dL [facility] Chloride [Moles/Vol] 106 mmol/L 98 - 10 7 mmol/L [facility] CO2 [Moles/Vol] 16 mmol/L Low 20 - 31 mmol/L [facility] Creatinine [Mass/Vol] 3.44 mg/dL High 0.7 - 1.2 mg/dL [employer] GFR 22 mL/min Low 60 - PI NF mL/min [employer] GFR Non- 18 mL/min Low 60 - PINF mL/min [employer] GFR/1.73 sq M.predicted MDRD (S/P/Bld) [Vol rate/Area] [facility] [employer] Comment on above: Average GFR for 60-6 9 years old: 85 mL/min/1.73sq m Chronic Kidney Disease: <60 mL/min/1.73sq m Kidney failure: <15 mL/min/1.73sq m eGFR calculated using average adult body mass. Additional eGFR calculator available at: http://www.[employer]MJH/multiple_crcl_2012.htm Glucose [Mass/Vol] 138 mg/dL High 70 - 99 mg/dL [facility] Potassium [Moles/Vol] 4.8 mmol/L 3.7 - 5.3 mmol/L [facility] Sodium [Moles/Vol] 138 mmol/L 135 - 144 mmol/L [facility] Urea nitrogen (BldV) [Mass/Vol] 53 mg/dL High 8 - 23 mg/dL [facility] C3on 01-03-2022 C3 108 mg/dL Normal 90-180 [facility] Comment on above: Performed By: #### U RNA, URTPRT, UMICAO, UEOS, UA #### [facility] [address] [place] [address] Tree Chipper: Ronn Arias MD C3 COMPLEMENTon 01-03-2022 Complement C3 108 mg/dL 90 - 180 mg/dL [facility] C4on 01-03-2022 C4 21 mg/dL Normal 10-40 [facility] Comment on above: Performed By: #### U RNA, URTPRT, UMICAO, UEOS, UA #### [facility] [address] [place] [address] Tree Chipper: Ronn Arias MD C4 COMPLEMENTon 01-03-2022 Complement C4 21 mg/dL 10 - 40 mg/dL [facility] CBC with Auto Differentialon 01-03-2022 Absolute Eos # [facility] Absolute Immature Granulocyte 0.09 [facility] Lymph # 0.76 Low [facility] Absolute [place] # 0.[address] [facility] [address] [facility] [employer] Basophils Absolute [facility] Basophils/100 WBC (Bld) 0 % 0 - 2 % [facility] Eosinophils/100 WBC (Bld) 0 % Low 1 - 4 % [facility] Hematocrit (Bld) [Volume fraction] 31.4 % Low 40.7 - 50.3 % [facility] Hemoglobin (Bld) [Mass/Vol] 10.3 g/dL Low 13 - 17 g/dL [facility] Immature granulocytes/100 WBC (Bld) 1 % High 0 [facility] Interpretation and review of laboratory results Abnormal [facility] Lymphocytes/100 WBC (Bld) 6 % Low 24 - 43 % [facility] MCH (RBC) [Entitic mass] 27.5 pg 25.2 - 33.5 pg [facility] MCHC (RBC) [Mass/Vol] 32.8 g/dL 28.4 - 34.8 g/dL [facility] MCV (RBC) [Entitic vol] 83.7 fL 82.6 - 102.9 fL [facility] Monocytes/100 WBC (Bld) 3 % 3 - 12 % [facility] NRBC Automated 0.0 0.0 per 100 WBC [facility] Platelet distribution width (Bld) [Ratio] 14.5 % High 11.8 - 14.4 % [facility] Platelet mean volume (Bld) [Entitic vol] 10.9 fL 8.1 - 13.5 fL [facility] Platelets (Bld) [#/Vol] 170 10*3/uL [facility] RBC (Bld) [#/Vol] 3.75 10*6/uL Low 4.21 - 5.77 m/uL [facility] RBC (Bld) [#/Vol] ANISOCYTOSIS PRESENT [facility] Segmented neutrophils/100 WBC (Bld) 90 % High 36 - 65 % [facility] Segs Absolute 11.26 High [facility] WBC (Bld) [#/Vol] 12.5 10*3/uL High [facility] CBC with Diffon 01-03-2022 Abs. Basophil <0.03 Normal 0.00-0.20 [facility] Comment on above: Performed By: #### L ACDS #### [employer] [address] [place] [address] Tree Chipper: Ronn Arias MD Abs. Eosinophil <0.03 Normal 0.00-0.44 [facility] Comment on above: Performed By: #### L ACDS #### [address] [address] Tree Chipper: Ronn Arias MD Abs.Imm.Granulocyte 0.09 k/uL Normal 0.00-0.30 [facility] Comment on above: Performed By: #### L ACDS #### [address] [address] Tree Chipper: Ronn Arias MD Abs.Neutrophil (Seg) 11.26 k/uL High 1.50-8.10 [facility] Comment on above: Performed By: #### L ACDS #### [address] [address] Tree Chipper: Ronn Arias MD Basophils/100 WBC (Bld) 0 % Normal 0-2 [facility] Comment on above: Performed By: #### L ACDS #### [address] [address] Tree Chipper: Ronn Arias MD Eosinophils/100 WBC (Bld) 0 % Low 1-4 [facility] Comment on above: Performed By: #### L ACDS #### [address] [address] Tree [employer]pper: Ronn Arias MD Erythrocyte distribution width (RBC) [Ratio] 14.5 % High 11.8-14.4 [facility] Comment on above: Performed By: #### L ACDS #### [address] [address] Tree [employer]pper: Ronn Arias MD Hematocrit (Bld) [Volume fraction] 31.4 % Low 40.7-50.3 [facility] Comment on above: Performed By: #### L ACDS #### [address] [address] Tree [employer]pper: Ronn Arias MD Hemoglobin (Bld) [Mass/Vol] 10.3 g/dL Low 13.0-17.0 [facility] Comment on above: Performed By: #### L ACDS #### [address] [address] Tree Chipper: Ronn Arias MD Immature granulocytes/100 WBC (Bld) 1 % High 0 [facility] Comment on above: Performed By: #### L ACDS #### [address] [address] Tree Chipper: Ronn Arias MD Lymphocytes (Bld) [#/Vol] 0.76 10*3/uL Low 1.10-3.70 [facility] Comment on above: Performed By: #### L ACDS #### [address] [address] Tree [employer]pper: Ronn Arias MD Lymphocytes/100 WBC (Bld) 6 % Low 24-43 [facility] Comment on above: Performed By: #### L ACDS #### [address] [address] Tree [employer]pper: Ronn Arias MD MCH (RBC) [Entitic mass] 27.5 pg Normal 25.2-33.5 [facility] Comment on above: Performed By: #### L ACDS #### [address] [address] Tree [employer]pper: Ronn Arias MD MCHC (RBC) [Mass/Vol] 32.8 g/dL Normal 28.4-34.8 [facility] Comment on above: Performed By: #### L ACDS #### [address] [address] Tree Chipper: Ronn Arias MD MCV (RBC) [Entitic vol] 83.7 fL Normal 82.6-102.9 [facility] Comment on above: Performed By: #### L ACDS #### [address] [address] Tree [employer]pper: Ronn Arias MD Monocytes (Bld) [#/Vol] 0.39 10*3/uL Normal 0.10-1.20 [facility] Comment on above: Performed By: #### L ACDS #### [place] [address] Tree [employer]pper: Ronn Arias MD Monocytes/100 WBC (Bld) 3 % Normal 3-12 [facility] Comment on above: Performed By: #### L ACDS #### [place] [address] Tree Chipper: Ronn Arias MD Neutrophil (Seg) 90 % High 36-65 [facility] Comment on above: Performed By: #### L ACDS #### [address] [address] Tree [employer]pper: Ronn Arias MD NRBC Automated 0.0 per 100 WBC Normal 0.0 [facility] Comment on above: Performed By: #### L ACDS #### [place] [address] Tree [employer]pper: Ronn Arias MD Platelet mean volume (Bld) [Entitic vol] 10.9 fL Normal 8.1-13.5 [facility] Comment on above: Performed By: #### L ACDS #### [address] [address] Tree [employer]pper: Ronn Arias MD Platelets (Bld) [#/Vol] 170 10*3/uL Normal 138-453 [facility] Comment on above: Performed By: #### L ACDS #### [address] [address] Tree [employer]pper: Ronn Arias MD RBC (Bld) [#/Vol] 3.75 10*6/uL Low 4.21-5.77 [facility] [facility] Comment on above: Performed By: #### L ACDS #### [address] [address] Tree Chipper: Ronn Arias MD RBC morphology finding Nom (Bld) ANISOCYTOSIS PRESENT Normal [facility] Comment on above: Performed By: #### L ACDS #### [address] [address] Tree Chipper: Ronn Arias MD WBC (Bld) [#/Vol] 12.5 10*3/uL High 3.5-11.3 [facility] Comment on above: Performed By: #### L ACDS #### [address] [address] Tree Chipper: Ronn Arias MD EOSINOPHILS, URINEon 022 Eosinophil, Ur NONE SEEN NONE SEEN [facility] Eosinophils, Urineon 022 Eosinophils, Urine NONE SEEN Normal NSN [facility] Comment on above: Performed By: #### U RNA, URTPRT, UMICAO, UEOS, UA #### [address] [address] Tree Chipper: Ronn Arias MD Free [place] + Lambdaon 2021 Free [place] Lt Chains 4.01 mg/dL High 0.37-1.94 [facility] Comment on above: Performed By: #### U RNA, URTPRT, UMICAO, UEOS, UA #### [address] [address] Tree Chipper: Ronn Arias MD Free [place]/Lambda Rat 1.94 High 0.26-1.65 [facility] Comment on above: Performed By: #### U RNA, URTPRT, UMICAO, UEOS, UA #### [facility] [address] [place], [place] [phone] Tree Chipper: Ronn Arias MD Free Lambda Lt Chains 2.07 mg/dL Normal 0.57-2.63 [facility] Comment on above: Performed By: #### U RNA, URTPRT, UMICAO, UEOS, UA #### [facility] [address] [place] [address] Tree Chipper: Ronn Arias MD Hepatic Function Panelon Albumin [Mass/Vol] 3.2 g/dL Low 3.5 - 5.2 g/dL [facility] Albumin/Globulin [Mass ratio] 0.9 {ratio} Low 1 - 2.5 [facility] ALP (Bld) [Catalytic activity/Vol] 104 U/L 40 - 129 U/L [facility] ALT [Catalytic activity/Vol] 94 U/L High 5 - 41 U/L [facility] AST [Catalytic activity/Vol] 49 U/L High NINF - 40 U/L [facility] Bilirubin [Mass/Vol] 1.1 mg/dL 0.3 - 1 .2 mg/dL [facility] [employer] [facility] Bilirubin, Indirect 0.5 mg/dL 0 - 1 mg/dL [facility] Bilirubin.indirect [Mass/Vol] 0.6 mg/dL High NINF - 0.31 mg/dL [facility] Free PSA/Total PSA [Mass fraction] 6.7 g/dL 6.4 - 8.3 g/dL [facility] Re[facility] [place]/Lambda Quantitative Fr ee Light Chains, Serumon 01-03-2022 Free [place]/Lambda Ratio 1.94 High 0.26 - 1.65 [facility] Interpretation and review of laboratory results Abnormal [facility] [place] Free Light Chains QNT 4.01 mg/dL High 0.37 - 1.94 mg/dL [facility] Lambda Free Light Chains QNT 2.07 mg/dL 0.57 - 2.63 mg/dL [facility] Lactate, Sepsison 01-03-2022 Lactic Acid,Sep Wbld 1.8 mmol/L Normal 0.5-1.9 [facility] Comment on above: Performed By: #### L ACDS #### [facility] [address] [place] [address] [phone] Tree Chipper: Ronn Arias MD Lactic Acid, Sepsis, Whole Blood 1.8 mmol/L 0.5 - 1.9 mmol/L [facility] Lactic Acid,Sep Wbld 1.4 mmol/L Normal 0.5-1.9 [facility] Comment on above: Performed By: #### U RNA, URTPRT, UMICAO, UEOS, UA #### [facility] [address] [place] [address] [phone] Tree Chipper: Ronn Arias MD Lactic Acid, Sepsis, Whole Blood 1.4 mmol/L 0.5 - 1.9 mmol/L [facility] Lactic Acid,Sep Wbld 1.5 mmol/L Normal 0.5-1.9 [facility] Comment on above: Performed By: #### L ACDS #### [facility] [address] [place] [address] [phone] Tree Chipper: Ronn Arias MD Lactic Acid, Sepsis, Whole Blood 1.5 mmol/L 0.5 - 1.9 mmol/L [facility] Lactic Acid,Sep Wbld 1.2 mmol/L Normal 0.5-1.9 [facility] Comment on above: Performed By: #### L ACDS #### [facility] [address] [place] [address] [phone] Tree Chipper: Ronn Arias MD Lipaseon 01-03-2022 Lipase [Catalytic activity/Vol] 250 U/L High 13-60 [facility] Comment on above: Performed By: #### L ACDS #### [address] [address] Tree Chipper: Ronn Arias MD Lipase [Catalytic activity/Vol] 250 U/L High 13 - 60 U/L [facility] Liver Profileon 01-03-2022 Albumin [Mass/Vol] 3.2 g/dL Low 3.5-5.2 [facility] Comment on above: Performed By: #### L ACDS #### [address] [address] Tree Chipper: Ronn Arias MD Albumin/Glob Ratio 0.9 Low 1.0-2.5 [facility] Comment on above: Performed By: #### L ACDS #### [address] [address] Tree Chipper: Ronn Arias MD Alkaline Phos 104 U/L Normal 40-129 [facility] Comment on above: Performed By: #### L ACDS #### [address] [address] Tree Chipper: Ronn Arias MD ALT [Catalytic activity/Vol] 94 U/L High 5-41 [facility] Comment on above: Performed By: #### L ACDS #### [address] [address] Tree Chipper: Ronn Arias MD AST [Catalytic activity/Vol] 49 U/L High <40 [facility] Comment on above: Performed By: #### L ACDS #### [address] [address] Tree Chipper: Ronn Arias MD Bilirubin [Mass/Vol] 1.1 mg/dL Normal 0.3-1.2 [facility] Comment on above: Performed By: #### L ACDS #### [facility] [address] [place] [address] Tree Chipper: Ronn Arias MD Bilirubin, Indirect 0.5 mg/dL Normal 0.00-1.00 [facility] Comment on above: Performed By: #### L ACDS #### [facility] [place] [address] Tree Chipper: Ronn Arias MD Bilirubin.indirect [Mass/Vol] 0.6 mg/dL High <0.31 [facility] Comment on above: Performed By: #### L ACDS #### [facility] [address] [place] [address] Tree Chipper: Ronn Arias MD Protein [Mass/Vol] 6.7 g/dL Normal 6.4-8.3 [facility] Comment on above: Performed By: #### L ACDS #### [facility] [address] [place] [address] Tree Chipper: Ronn Arias MD Microscopic Urinalysison Casts UA 2 TO 5 HYALINE Refer ence range defined for non-centrifuged specimen. [facility] Epithelial Cells UA None [facility] S [facility] RBC, UA 2 TO 5 [facility] Comment on above: Reference range defi juan for non-centrifuged specimen. WBC, UA 2 TO 5 [facility] No Panel Informationon 01-03 [facility] Interpretation and review of laboratory results Abnormal [facility] Procalcitoninon 01-03-2022 Procalcitonin 16.48 ng/mL High <0.09 [facility] Comment on above: Result Comment: Suspected [...] entered into the Change in Procalcitonin Calculator (www.lewvom-ybq-arpokzxslk.MJH) to determine the patient's Mortality Risk Prognosis In healthy neonates, plasma Procalcitonin (PCT) concentrations increase gradually after , reaching peak values at about 24 hours of age then decrease to normal values below 0.5 ng/mL by 48-72 hours of age. Performed By: #### L ACDS #### [facility] [address] [place] [address] Tree Chipper: Ronn Arias MD Interpretation and review of laboratory results Abnormal [facility] Procalcitonin 16.48 ng/mL High NINF - 0.09 ng/mL [facility] Comment on above: Suspected Sepsis: <0.50 ng/mL [...] entered into the Change in Procalcitonin Calculator (www.zmpwdk-vou-fegfifibhc.MJH) to determine the patient's Mortality Risk Prognosis In healthy neonates, plasma Procalcitonin (PCT) concentrations increase gradually after , reaching peak values at about 24 hours of age then decrease to normal values below 0.5 ng/mL by 48-72 hours of age. [facility] [employer] Protein / creatinine ratio, urineon 01-03-2022 Creatinine, Ur 84.8 mg/dL 39 - 259 mg/dL [facility] [employer] Protein (U) [Mass/Vol] 16 mg/dL [facility] [employer] Comment on above: No normal range esta blished. Urine Total Protein Creatinine Ratio 0.19 0 - 0.2 [facility] Protein,Tot,Levels Uron 2021 Creatinine [Mass/Vol] 84.8 mg/dL Normal 39.0-259.0 [facility] Comment on above: Performed By: #### U RNA, URTPRT, UMICAO, UEOS, UA #### [facility] [address] [place], [place] [phone] Tree Chipper: Ronn Arias MD Tot Prot. Conc. 16 mg/dL Normal [facility] Comment on above: Result Comment: No n ormal range established. Performed By: #### U RNA, URTPRT, UMICAO, UEOS, UA #### [facility] [address] [place], [place] [phone] Tree Chipper: Ronn Arias MD TP/Cre Ratio 0.19 Normal 0.00-0.20 [facility] Comment on above: Performed By: #### U RNA, URTPRT, UMICAO, UEOS, UA #### [facility] [address] [place], [place] [phone] Tree Chipper: Ronn Arias MD SODIUM, URINE, RANDOMon 12-21 Sodium (U) [Moles/Vol] 83 mmol/L [facility] Comment on above: No normal [...] two black choleliths, each measuring 0.5 cm. Deputy Brand Inspector sections 1c to include cystic duct margin (inked blue), fundus, body and neck. tm Microscopic Description Microscopic examination performed. SURGICAL PATHOLOGY CONSULTATION Patient Name: YOLI ANTUNEZ [facility] Rec: [id number] Path Number: [id number] [facility] ANATOMIC PATHOLOGY [address] [place] [address]. [place], [place] [address] [facility] Sodium, Random Uron 01-04-20 Sodium (U) [Moles/Vol] 83 mmol/L Normal [facility] Comment on above: Result Comment: No n ormal range established. Performed By: #### U RNA, URTPRT, UMICAO, UEOS, UA #### [facility] [address] [place] [address] [phone] Tree Chipper: Ronn Arias MD Urinalysison 01-03-2022 Bilirubin Urine Negative NEGATIVE [facility] Color, UA Yellow Yellow [facility] Glucose, Ur Negative NEGATIVE [facility] Interpretation and review of laboratory results Abnormal [facility] Ketones Ql (U) Negative NEGATIVE [facility] Leukocyte esterase Test strip Ql (U) Negative NEGATIVE [facility] Nitrite, Urine Negative NEGATIVE [facility] pH, UA 5.5 5 - 8 [facility] Protein, UA TRACE Abnormal NEGATIVE [facility] Specific [place], UA 1.014 1.005 - 1.03 [facility] Turbidity UA Clear Clear [facility] Urine Hgb TRACE Abnormal NEGATIVE [facility] Urobilinogen, Urine Normal Normal [facility] Urinalysis, Routineon 2021 Bilirubin, SemiQt,Ur Negative Normal NEG [facility] Comment on above: Performed By: #### U RNA, URTPRT, UMICAO, UEOS, UA #### [facility] [address] [place] [phone] Tree Chipper: Ronn Arias MD Blood, Urine TRACE Abnormal NEG [facility] Comment on above: Performed By: #### U RNA, URTPRT, UMICAO, UEOS, UA #### [facility] [address] [place] [phone] Tree Chipper: Ronn Arias MD Clarity (U) Clear Normal CLEAR [facility] Comment on above: Performed By: #### U RNA, URTPRT, UMICAO, UEOS, UA #### [facility] [address] [place] [phone] Tree Chipper: Ronn Arias MD Color (U) Yellow Normal YEL [facility] Comment on above: Performed By: #### U RNA, URTPRT, UMICAO, UEOS, UA #### [facility] [address] [place] [phone] Tree Chipper: Ronn Arias MD Glucose Ql (U) Negative Normal NEG [facility] Comment on above: Performed By: #### U RNA, URTPRT, UMICAO, UEOS, UA #### [facility] [address] [place] [address] Tree Chipper: Ronn Arias MD Ketones Ql (U) Negative Normal NEG [facility] Comment on above: Performed By: #### U RNA, URTPRT, UMICAO, UEOS, UA #### [facility] [address] [place] [address] [place] [address] Tree Chipper: Ronn Arias MD Leukocyte esterase Test strip Ql (U) Negative Normal NEG [facility] Comment on above: Performed By: #### U RNA, URTPRT, UMICAO, UEOS, UA #### [address] [address] Tree Chipper: Ronn Arias MD Nitrite,Ur Negative Normal NEG [facility] Comment on above: Performed By: #### U RNA, URTPRT, UMICAO, UEOS, UA #### [address] [address] Tree Chipper: Ronn Arias MD PH,Ur 5.5 Normal 5.0-8.0 [facility] Comment on above: Performed By: #### U RNA, URTPRT, UMICAO, UEOS, UA #### [address] [address] Tree Chipper: Ronn Arias MD Protein Ql (U) TRACE Abnormal NEG [facility] Comment on above: Performed By: #### U RNA, URTPRT, UMICAO, UEOS, UA #### [address] [address] Tree Chipper: Ronn Arias MD Spec. [place],Ur 1.014 Normal 1.005-1.03 0 [facility] Comment on above: Performed By: #### U RNA, URTPRT, UMICAO, UEOS, UA #### [address] [address] Tree Chipper: Ronn Arias MD Urobilinogen,Ur Normal Normal NORM [facility] Comment on above: Performed By: #### U RNA, URTPRT, UMICAO, UEOS, UA #### [address] [phone] Tree Chipper: Ronn Arias MD Urinalysis,Microon 2 Casts 2 TO 5 HYALINE Normal 0-8 [facility] Comment on above: Result Comment: Refe rence range defined for non-centrifuged specimen. Performed By: #### U RNA, URTPRT, UMICAO, UEOS, UA #### [facility] [address] [place] [address] Tree Chipper: Ronn Arias MD Epithelial cells LM Ql (Urine sed) None Normal 0-5 [facility] Comment on above: Performed By: #### U RNA, URTPRT, UMICAO, UEOS, UA #### [facility] [address] [place] [address] Tree Chipper: Ronn Arias MD Urine RBC's 2 TO 5 Normal 0-4 [facility] Comment on above: Result Comment: Refe rence range defined for non-centrifuged specimen. Performed By: #### U RNA, URTPRT, UMICAO, UEOS, UA #### [facility] [address] [place] [address] Tree Chipper: Ronn Arias MD Urine WBC's 2 TO 5 Normal 0-5 [facility] Comment on above: Performed By: #### U RNA, URTPRT, UMICAO, UEOS, UA #### [facility] [address] [place], [place] [phone] Tree Chipper: Ronn Arias MD Basic Metab w/rfx MGon 01-02 (cont.) Normal [facility] Comment on above: Result Comment: Aver age GFR for 60-69 years old: 85 mL/min/1.73sq m Chronic Kidney Disease: <60 mL/min/1.73sq m Kidney failure: <15 mL/min/1.73sq m eGFR calculated using average adult body mass. Additional eGFR calculator available at: http://www.[employer].com/multiple_crcl_2012.htm Performed By: #### L ACDS #### [address] [address] Tree Chipper: Ronn Arias MD Anion gap [Moles/Vol] 14 mmol/L Normal 9-17 [facility] Comment on above: Performed By: #### L ACDS #### [address] [address] Tree Chipper: Ronn Arias MD Calcium [Mass/Vol] 7.2 mg/dL Low 8.6-10.4 [facility] Comment on above: Performed By: #### L ACDS #### [address] [address] Tree Chipper: Ronn Arias MD Chloride [Moles/Vol] 108 mmol/L High 98-107 [facility] Comment on above: Performed By: #### L ACDS #### [address] [address] Tree Chipper: Ronn Arias MD CO2 [Moles/Vol] 20 mmol/L Normal 20-31 [facility] Comment on above: Performed By: #### L ACDS #### [address] [address] Tree Chipper: Ronn Arias MD Creatinine [Mass/Vol] 3.51 mg/dL High 0.70-1.20 [facility] Comment on above: Performed By: #### L ACDS #### [address] [address] Tree Chipper: Ronn Arias MD GFR, Amer 21 mL/min Low >60 [facility] Comment on above: Performed By: #### L ACDS #### [address] [address] Tree Chipper: Ronn Arias MD GFR,non Amer 17 mL/min Low >60 [facility] Comment on above: Performed By: #### L ACDS #### [address] [address] Tree Chipper: Ronn Arias MD Glucose [Mass/Vol] 122 mg/dL High 70-99 [facility] Comment on above: Performed By: #### L ACDS #### [address] [address] Tree Chipper: Ronn Arias MD Potassium [Moles/Vol] 5.0 mmol/L Normal 3.7-5.3 [facility] Comment on above: Performed By: #### L ACDS #### [address] [address] Tree Chipper: Ronn Arias MD Sodium [Moles/Vol] 142 mmol/L Normal 135-144 [facility] Comment on above: Performed By: #### L ACDS #### [address] [address] Tree Chipper: Ronn Arias MD Urea nitrogen [Mass/Vol] 55 mg/dL High 8-23 [facility] Comment on above: Performed By: #### L ACDS #### [address] [address] Tree Chipper: Ronn Arias MD (cont.) Normal [facility] Comment on above: Result Comment: Aver age GFR for 60-69 years old: 85 mL/min/1.73sq m Chronic Kidney Disease: <60 mL/min/1.73sq m Kidney failure: <15 mL/min/1.73sq m eGFR calculated using average adult body mass. Additional eGFR calculator available at: http://www.[employer].MJH/multiple_crcl_2012.htm Performed By: #### L IVP, BMPX, LIP, CDP #### [address] [address] Tree Chipper: Ronn Arias MD Anion gap [Moles/Vol] 14 mmol/L Normal 9-17 [facility] Comment on above: Performed By: #### L IVP, BMPX, LIP, CDP #### [facility] [address] [place] [address] Tree Chipper: Ronn Arias MD Calcium [Mass/Vol] 7.2 mg/dL Low 8.6-10.4 [facility] Comment on above: Performed By: #### L IVP, BMPX, LIP, CDP #### [facility] [address] [place] [address] Tree Chipper: Ronn Arias MD Chloride [Moles/Vol] 109 mmol/L High 98-107 [facility] Comment on above: Performed By: #### L IVP, BMPX, LIP, CDP #### [facility] [address] [place] [address] Tree Chipper: Ronn Arias MD CO2 [Moles/Vol] 18 mmol/L Low 20-31 [facility] Comment on above: Performed By: #### L IVP, BMPX, LIP, CDP #### [facility] [address] [place] [address] Tree Chipper: Ronn Arias MD Creatinine [Mass/Vol] 4.02 mg/dL High 0.70-1.20 [facility] Comment on above: Performed By: #### L IVP, BMPX, LIP, CDP #### [facility] [address] [place] [address] Tree Chipper: Ronn Arias MD GFR, Amer 18 mL/min Low >60 [facility] Comment on above: Performed By: #### L IVP, BMPX, LIP, CDP #### [facility] [address] [place] [address] [phone] Tree Chipper: Ronn Arias MD GFR,non Amer 15 mL/min Low >60 [facility] Comment on above: Performed By: #### L IVP, BMPX, LIP, CDP #### [facility] [address] [place] [address] Tree Chipper: Ronn Arias MD Glucose [Mass/Vol] 106 mg/dL High 70-99 [facility] Comment on above: Performed By: #### L IVP, BMPX, LIP, CDP #### [facility] [address] [place] [address] Tree Chipper: Ronn Arias MD Potassium [Moles/Vol] 4.6 mmol/L Normal 3.7-5.3 [facility] Comment on above: Performed By: #### L IVP, BMPX, LIP, CDP #### [facility] [address] [place] [address] Tree Chipper: Ronn Arias MD Sodium [Moles/Vol] 141 mmol/L Normal 135-144 [facility] Comment on above: Performed By: #### L IVP, BMPX, LIP, CDP #### [facility] [address] [place] [address] Tree Chipper: Ronn Arias MD Urea nitrogen [Mass/Vol] 63 mg/dL High 8-23 [facility] Comment on above: Performed By: #### L IVP, BMPX, LIP, CDP #### [facility] [place] [address] Tree Chipper: Ronn Arias MD Basic Metabolic Panel w/ Ref luz to MGon 01-02-2022 Anion gap [Moles/Vol] 14 mmol/L 9 - 17 mmol/L [facility] Calcium [Mass/Vol] 7.2 mg/dL Low 8.6 - 10. 4 mg/dL [facility] Chloride [Moles/Vol] 108 mmol/L High 98 - 10 7 mmol/L [facility] CO2 [Moles/Vol] 20 mmol/L 20 - 31 mmol/L [facility] Creatinine [Mass/Vol] 3.51 mg/dL High 0.7 - 1.2 mg/dL [facility] GFR 21 mL/min Low 60 - PI NF mL/min [facility] [employer] GFR Non- 17 mL/min Low 60 - PINF mL/min [facility] GFR/1.73 sq M.predicted MDRD (S/P/Bld) [Vol rate/Area] [facility] Comment on above: Average GFR for 60-6 9 years old: 85 mL/min/1.73sq m Chronic Kidney Disease: <60 mL/min/1.73sq m Kidney failure: <15 mL/min/1.73sq m eGFR calculated using average adult body mass. Additional eGFR calculator available at: http://www.[employer]/multiple_crcl_2011.htm Glucose [Mass/Vol] 122 mg/dL High 70 - 99 mg/dL [facility] Interpretation and review of laboratory results Abnormal [facility] Potassium [Moles/Vol] 5.0 mmol/L 3.7 - 5.3 mmol/L [facility] Sodium [Moles/Vol] 142 mmol/L 135 - 144 mmol/L [facility] Urea nitrogen (BldV) [Mass/Vol] 55 mg/dL High 8 - 23 mg/dL [facility] Anion gap [Moles/Vol] 14 mmol/L 9 - 17 mmol/L [facility] Calcium [Mass/Vol] 7.2 mg/dL Low 8.6 - 10. 4 mg/dL [facility] Chloride [Moles/Vol] 109 mmol/L High 98 - 10 7 mmol/L [facility] CO2 [Moles/Vol] 18 mmol/L Low 20 - 31 mmol/L [facility] Creatinine [Mass/Vol] 4.02 mg/dL High 0.7 - 1.2 mg/dL [facility] [employer] GFR 18 mL/min Low 60 - PI NF mL/min [facility] GFR Non- 15 mL/min Low 60 - PINF mL/min [facility] GFR/1.73 sq M.predicted MDRD (S/P/Bld) [Vol rate/Area] [facility] Comment on above: Average GFR for 60-6 9 years old: 85 mL/min/1.73sq m Chronic Kidney Disease: <60 mL/min/1.73sq m Kidney failure: <15 mL/min/1.73sq m eGFR calculated using average adult body mass. Additional eGFR calculator available at: http://www.[employer]/multiple_crcl_2012.htm Glucose [Mass/Vol] 106 mg/dL High 70 - 99 mg/dL [facility] Potassium [Moles/Vol] 4.6 mmol/L 3.7 - 5.3 mmol/L [facility] Sodium [Moles/Vol] 141 mmol/L 135 - 144 mmol/L [facility] Urea nitrogen (BldV) [Mass/Vol] 63 mg/dL High 8 - 23 mg/dL [facility] CBC with Auto Differentialon 01-02-2022 Absolute Eos # 0.12 [facility] Absolute Immature Granulocyte 0.00 [facility] Absolute Lymph # 0.37 Low [facility] Absolute [place] # 0.49 [facility] RS [facility] Basophils (Bld) [#/Vol] 0.00 10*3/uL [facility] Basophils/100 WBC (Bld) 0 % 0 - 2 % [facility] Eosinophils/100 WBC (Bld) 1 % 1 - 4 % [facility] Hematocrit (Bld) [Volume fraction] 30.4 % Low 40.7 - 50.3 % [facility] Hemoglobin (Bld) [Mass/Vol] 10.2 g/dL Low 13 - 17 g/dL [facility] Immature granulocytes/100 WBC (Bld) 0 % 0 [facility] Interpretation and review of laboratory results Abnormal [facility] Lymphocytes/100 WBC (Bld) 3 % Low 24 - 44 % [facility] MCH (RBC) [Entitic mass] 28.0 pg 25.2 - 33.5 pg [facility] MCHC (RBC) [Mass/Vol] 33.6 g/dL 28.4 - 34.8 g/dL [facility] MCV (RBC) [Entitic vol] 83.5 fL 82.6 - 102.9 fL [facility] Monocytes/100 WBC (Bld) 4 % 1 - 7 % [facility] Morphology Gordon (Bld) [Interp] Normal [facility] NRBC Automated 0.0 0.0 per 100 WBC [facility] Platelet distribution width (Bld) [Ratio] 14.4 % 11.8 - 14.4 % [facility] Platelet mean volume (Bld) [Entitic vol] 10.3 fL 8.1 - 13.5 fL [facility] Platelets (Bld) [#/Vol] 150 10*3/uL [facility] RBC (Bld) [#/Vol] 3.64 10*6/uL Low 4.21 - 5.77 m/uL [facility] Segmented neutrophils/100 WBC (Bld) 92 % High 36 - 66 % [facility] Segs Absolute 11.22 High [facility] WBC (Bld) [#/Vol] 12.2 10*3/uL High [facility] CBC with Diffon 01-02-2022 Abs. Basophil 0.00 k/uL Normal 0.0-0.2 [facility] Comment on above: Performed By: #### L ACDS #### [facility] [place] [id number] Tree Chipper: Ronn Arias MD Abs.Imm.Granulocyte 0.00 k/uL Normal 0.00-0.30 [facility] Comment on above: Performed By: #### L ACDS #### [facility] [place], [place] [phone] Tree Chipper: Ronn Arias MD Abs.Neutrophil (Seg) 11.22 k/uL High 1.8-7.7 [facility] Comment on above: Performed By: #### L ACDS #### [address] [address] Tree Chipper: Ronn Arias MD Basophils/100 WBC (Bld) 0 % Normal 0-2 [facility] Comment on above: Performed By: #### L ACDS #### [address] [address] Tree Chipper: Ronn Arias MD Eosinophils (Bld) [#/Vol] 0.12 10*3/uL Normal 0.0-0.4 [facility] Comment on above: Performed By: #### L ACDS #### [address] [address] Tree Chipper: Ronn Arias MD Eosinophils/100 WBC (Bld) 1 % Normal 1-4 [facility] Comment on above: Performed By: #### L ACDS #### [address] [address] Tree Chipper: Ronn Arias MD Immature granulocytes/100 WBC (Bld) 0 % Normal 0 [facility] Comment on above: Performed By: #### L ACDS #### [address] [address] Tree Chipper: Ronn Arias MD Lymphocytes (Bld) [#/Vol] 0.37 10*3/uL Low 1.0-4.8 [facility] Comment on above: Performed By: #### L ACDS #### [address] [address] Tree Chipper: Ronn Arias MD Lymphocytes/100 WBC (Bld) 3 % Low 24-44 [facility] Comment on above: Performed By: #### L ACDS #### [address] [address] Tree Chipper: Ronn Arias MD Monocytes (Bld) [#/Vol] 0.49 10*3/uL Normal 0.1-0.8 [facility] Comment on above: Performed By: #### L ACDS #### [address] [address] Tree Chipper: Ronn Arias MD Monocytes/100 WBC (Bld) 4 % Normal 1-7 [facility] Comment on above: Performed By: #### L ACDS #### [address] [address] Tree Chipper: Ronn Arias MD Morphology Gordon (Bld) [Interp] Normal Normal [facility] Comment on above: Performed By: #### L ACDS #### [address] [address] Tree Chipper: Ronn Arias MD Neutrophil (Seg) 92 % High 36-66 [facility] Comment on above: Performed By: #### L ACDS #### [address] [address] Tree Chipper: Ronn Arias MD Erythrocyte distribution width (RBC) [Ratio] 14.4 % Normal 11.8-14.4 [facility] Comment on above: Performed By: #### L ACDS #### [address] [address] Tree Chipper: Ronn Arias MD Hematocrit (Bld) [Volume fraction] 30.4 % Low 40.7-50.3 [facility] Comment on above: Performed By: #### L ACDS #### [address] [address] Tree Chipper: Ronn Arias MD Hemoglobin (Bld) [Mass/Vol] 10.2 g/dL Low 13.0-17.0 [facility] Comment on above: Performed By: #### L ACDS #### [address] [address] Tree Chipper: Ronn Arias MD MCH (RBC) [Entitic mass] 28.0 pg Normal 25.2-33.5 [facility] Comment on above: Performed By: #### L ACDS #### [address] [address] Tree Chipper: Ronn Arias MD MCHC (RBC) [Mass/Vol] 33.6 g/dL Normal 28.4-34.8 [facility] Comment on above: Performed By: #### L ACDS #### [address] [address] Tree Chipper: Ronn Arias MD MCV (RBC) [Entitic vol] 83.5 fL Normal 82.6-102.9 [facility] Comment on above: Performed By: #### L ACDS #### [address] [address] Tree Chipper: Ronn Arias MD NRBC Automated 0.0 per 100 WBC Normal 0.0 [facility] Comment on above: Performed By: #### L ACDS #### [address] [address] Tree Chipper: Ronn Arias MD Platelet mean volume (Bld) [Entitic vol] 10.3 fL Normal 8.1-13.5 [facility] Comment on above: Performed By: #### L ACDS #### [address] [address] Tree Chipper: Ronn Arias MD Platelets (Bld) [#/Vol] 150 10*3/uL Normal 138-453 [facility] Comment on above: Performed By: #### L ACDS #### [address] [address] Tree Chipper: Ronn Arias MD RBC (Bld) [#/Vol] 3.64 10*6/uL Low 4.21-5.77 [facility] Comment on above: Performed By: #### L ACDS #### [facility] [address] [place], [place] [phone] Tree Chipper: Ronn Arias MD WBC (Bld) [#/Vol] 12.2 10*3/uL High 3.5-11.3 [facility] Comment on above: Performed By: #### L ACDS #### [facility] [address] [place], [place] [phone] Tree Chipper: Ronn Arias MD Cult,Urineon 01-02-2022 Cult,Urine Specimen Description .URINE Culture NO GROWTH Report Status FINAL 01/02/2022 Normal [facility] Comment on above: Performed By: #### U RNA, URTPRT, UMICAO, UEOS, UA #### [facility] [address] [place], [place] [phone] Tree Chipper: Ronn Arias MD Culture, Urineon 01-02-2022 Bacteria identified Cx Nom (U) NO GROWTH [facility] Specimen Description .URINE [facility] [employer] Hepatic Function Panelon Albumin [Mass/Vol] 2.9 g/dL Low 3.5 - 5.2 g/dL [facility] [employer] Albumin/Globulin [Mass ratio] 0.9 {ratio} Low 1 - 2.5 [facility] ALP (Bld) [Catalytic activity/Vol] 96 U/L 40 - 129 U/L [facility] [employer] ALT [Catalytic activity/Vol] 123 U/L High 5 - 41 U/L [facility] [employer] AST [Catalytic activity/Vol] 50 U/L High NINF - 40 U/L [facility] [employer] Bilirubin [Mass/Vol] 1.8 mg/dL High 0.3 - 1 .2 mg/dL [facility] [employer] Bilirubin, Indirect 0.7 mg/dL 0 - 1 mg/dL [facility] Bilirubin.indirect [Mass/Vol] 1.1 mg/dL High NINF - 0.31 mg/dL [facility] Free PSA/Total PSA [Mass fraction] 6.1 g/dL Low 6.4 - 8.3 g/dL [facility] Lactate, Sepsison 01-02-2022 Lactic Acid, Sepsis, Whole Blood 1.2 mmol/L 0.5 - 1.9 mmol/L [facility] Lactic Acid,Sep Wbld 1.3 mmol/L Normal 0.5-1.9 [facility] Comment on above: Performed By: #### U RNA, URTPRT, UMICAO, UEOS, UA #### [employer] [address] [place], [place] [phone] Tree Chipper: Ronn Arias MD Lactic Acid, Sepsis, Whole Blood 1.3 mmol/L 0.5 - 1.9 mmol/L [facility] Lactic Acid,Sep Wbld 1.0 mmol/L Normal 0.5-1.9 [facility] Comment on above: Performed By: #### U RNA, URTPRT, UMICAO, UEOS, UA #### [facility] [address] [place] [address] Tree Chipper: Ronn Arias MD Lactic Acid, Sepsis, Whole Blood 1.0 mmol/L 0.5 - 1.9 mmol/L [facility] Lactic Acid,Sep Wbld 0.9 mmol/L Normal 0.5-1.9 [facility] Comment on above: Performed By: #### U RNA, URTPRT, UMICAO, UEOS, UA #### [employer] [address] [place], [place] [phone] Tree Chipper: Ronn Arias MD Lactic Acid, Sepsis, Whole Blood 0.9 mmol/L 0.5 - 1.9 mmol/L [facility] Lipaseon 01-02-2022 Lipase [Catalytic activity/Vol] 1280 U/L High 13-60 [facility] Comment on above: Performed By: #### L IVP, BMPX, LIP, CDP #### [employer] [address] [place] [address] Tree Chipper: Ronn Arias MD Interpretation and review of laboratory results Abnormal [facility] Lipase [Catalytic activity/Vol] 1280 U/L High 13 - 60 U/L [facility] Liver Profileon 01-02-2022 Albumin [Mass/Vol] 2.9 g/dL Low 3.5-5.2 [facility] Comment on above: Performed By: #### L IVP, BMPX, LIP, CDP #### [facility] [address] [place] [address] Tree Chipper: Ronn Arias MD Albumin/Glob Ratio 0.9 Low 1.0-2.5 [facility] Comment on above: Performed By: #### L IVP, BMPX, LIP, CDP #### [employer] [address] [place] [address] Tree Chipper: Ronn Arias MD Alkaline Phos 96 U/L Normal 40-129 [facility] Comment on above: Performed By: #### L IVP, BMPX, LIP, CDP #### [employer] [address] [place] [address] Tree Chipper: Ronn Arias MD ALT [Catalytic activity/Vol] 123 U/L High 5-41 [facility] Comment on above: Performed By: #### L IVP, BMPX, LIP, CDP #### [employer] [address] [place] [address] Tree Chipper: Ronn Arias MD AST [Catalytic activity/Vol] 50 U/L High <40 [facility] Comment on above: Performed By: #### L IVP, BMPX, LIP, CDP #### [facility] [address] [place] [address] Tree Chipper: Ronn Arias MD Bilirubin [Mass/Vol] 1.8 mg/dL High 0.3-1.2 [facility] Comment on above: Performed By: #### L IVP, BMPX, LIP, CDP #### [facility] [address] [place] [address] Tree Chipper: Ronn Arias MD Bilirubin, Indirect 0.7 mg/dL Normal 0.00-1.00 [facility] Comment on above: Performed By: #### L IVP, BMPX, LIP, CDP #### [facility] [address] [place] [address] Tree Chipper: Ronn Arias MD Bilirubin.indirect [Mass/Vol] 1.1 mg/dL High <0.31 [facility] Comment on above: Performed By: #### L IVP, BMPX, LIP, CDP #### [facility] [address] [place] [address] Tree Chipper: Ronn Arias MD Protein [Mass/Vol] 6.1 g/dL Low 6.4-8.3 [facility] Comment on above: Performed By: #### L IVP, BMPX, LIP, CDP #### [facility] [address] [place] [address] Tree Chipper: Ronn Arias MD No Panel Informationon 01-02 Interpretation and review of laboratory results Abnormal [facility] Protein,Tot,Levels Uron 2021 Tot Prot. Conc. 59 mg/dL Normal [facility] Comment on above: Result Comment: No n ormal range established. Performed By: #### U RNA, URTPRT, UMICAO, UEOS, UA #### [facility] [address] [place] [address] Tree Chipper: Ronn Arias MD Surgical Pathologyon 022 Surgical [...] two black choleliths, each measuring 0.5 cm. Deputy Brand Inspector sections 1c to include cystic duct margin (inked blue), fundus, body and neck. tm Microscopic Description Microscopic examination performed. SURGICAL PATHOLOGY CONSULTATION Patient Name: YOLI ANTUNEZ [facility] Rec: [id number] Path Number: [id number] [employer] [facility] ANATOMIC PATHOLOGY [address] [place] [phone] [facility] Comment on above: Performed By: #### L ACDS #### [employer] [address] [place] [phone] Tree Chipper: Ronn Arias MD US RENAL LIMITEDon US [...] Naif Bean MD 01/02/22 Final result Normal [facility] Unremarkable renal ultrasound. No hydronephrosis. [facility] EXAMINATION: ULTRASOUND OF THE KIDNEYS 01/02/2022 [...] Gross preservation of the bilateral corticomedullary differentiation. [facility] Naif Bean MD - 01/02/2022 EXAMINATION: [...] differentiation. IMPRESSION: Unremarkable renal ultrasound. No hydronephrosis. [employer] Phone: Radiology Study observation (narrative) [employer] Phone: US RENAL LIMITEDOrdered By: Naif Bean on 01-02-2022 [facility] [employer] Work Phone: Basic Metabolic Panelon 12-21 Anion gap [Moles/Vol] 14 mmol/L 9 - 17 mmol/L [facility] Calcium [Mass/Vol] 6.4 mg/dL Low 8.6 - 10. 4 mg/dL [facility] Chloride [Moles/Vol] 106 mmol/L 98 - 10 7 mmol/L [facility] CO2 [Moles/Vol] 19 mmol/L Low 20 - 31 mmol/L [facility] Creatinine [Mass/Vol] 3.73 mg/dL High 0.7 - 1.2 mg/dL [facility] Comment on above: ICTERIC SPECIMEN GFR 20 mL/min Low 60 - PI NF mL/min [facility] GFR Non- 16 mL/min Low 60 - PINF mL/min [facility] GFR/1.73 sq M.predicted MDRD (S/P/Bld) [Vol rate/Area] [facility] Comment on above: Average GFR for 60-6 9 years old: 85 mL/min/1.73sq m Chronic Kidney Disease: <60 mL/min/1.73sq m Kidney failure: <15 mL/min/1.73sq m eGFR calculated using average adult body mass. Additional eGFR calculator available at: http://www.[employer].MJH/multiple_crcl_2011.htm Glucose [Mass/Vol] 114 mg/dL High 70 - 99 mg/dL [facility] Interpretation and review of laboratory results Abnormal [facility] Potassium [Moles/Vol] 4.4 mmol/L 3.7 - 5.3 mmol/L [facility] Sodium [Moles/Vol] 139 mmol/L 135 - 144 mmol/L [facility] Urea nitrogen (BldV) [Mass/Vol] 58 mg/dL High 8 - 23 mg/dL [facility] Basic Metabolic Profon 01-01 (cont.) Normal [facility] Comment on above: Result Comment: Aver age GFR for 60-69 years old: 85 mL/min/1.73sq m Chronic Kidney Disease: <60 mL/min/1.73sq m Kidney failure: <15 mL/min/1.73sq m eGFR calculated using average adult body mass. Additional eGFR calculator available at: http://www.[employer]/multiple_crcl_2012.htm Performed By: #### U RNA, URTPRT, UMICAO, UEOS, UA #### [employer] [address] [place] [address] Tree Chipper: Ronn Arias MD Anion gap [Moles/Vol] 14 mmol/L Normal 9-17 [facility] Comment on above: Performed By: #### U RNA, URTPRT, UMICAO, UEOS, UA #### [facility] [address] [place] [address] Tree Chipper: Ronn Arias MD Calcium [Mass/Vol] 6.4 mg/dL Low 8.6-10.4 [facility] Comment on above: Performed By: #### U RNA, URTPRT, UMICAO, UEOS, UA #### [employer] [address] [place] [address] Tree Chipper: Ronn Arias MD Chloride [Moles/Vol] 106 mmol/L Normal 98-107 [facility] Comment on above: Performed By: #### U RNA, URTPRT, UMICAO, UEOS, UA #### [employer] [address] [place] [address] Tree Chipper: Ronn Arias MD CO2 [Moles/Vol] 19 mmol/L Low 20-31 [facility] Comment on above: Performed By: #### U RNA, URTPRT, UMICAO, UEOS, UA #### [employer] [address] [place] [address] Tree Chipper: Ronn Arias MD Creatinine [Mass/Vol] 3.73 mg/dL High 0.70-1.20 [facility] Comment on above: Result Comment: ICTE JAYDON SPECIMEN Performed By: #### U RNA, URTPRT, UMICAO, UEOS, UA #### [facility] [address] [place] [phone] Tree Chipper: Ronn Arias MD GFR, Amer 20 mL/min Low >60 [facility] Comment on above: Performed By: #### U RNA, URTPRT, UMICAO, UEOS, UA #### [facility] [employer] [address] [place] [address] Tree Chipper: Ronn Arias MD GFR,non Amer 16 mL/min Low >60 [facility] Comment on above: Performed By: #### U RNA, URTPRT, UMICAO, UEOS, UA #### [facility] [employer] [address] [place] [address] Tree Chipper: Ronn Arias MD Glucose [Mass/Vol] 114 mg/dL High 70-99 [facility] Comment on above: Performed By: #### U RNA, URTPRT, UMICAO, UEOS, UA #### [facility] [address] [place] [address] Tree Chipper: Ronn Arias MD Potassium [Moles/Vol] 4.4 mmol/L Normal 3.7-5.3 [facility] Comment on above: Performed By: #### U RNA, URTPRT, UMICAO, UEOS, UA #### [facility] [address] [place] [address] Tree Chipper: Ronn Arias MD Sodium [Moles/Vol] 139 mmol/L Normal 135-144 [facility] Comment on above: Performed By: #### U RNA, URTPRT, UMICAO, UEOS, UA #### [facility] [address] [place] [address] Tree Chipper: Ronn Arias MD Urea nitrogen [Mass/Vol] 58 mg/dL High 8-23 [facility] Comment on above: Performed By: #### U RNA, URTPRT, UMICAO, UEOS, UA #### [address] [address] Tree Chipper: Ronn Arias MD CBCon 01-01-2022 Erythrocyte distribution width (RBC) [Ratio] 14.5 % High 11.8-14.4 [facility] Comment on above: Performed By: #### U RNA, URTPRT, UMICAO, UEOS, UA #### [address] [address] Tree Chipper: Ronn Arias MD Hematocrit (Bld) [Volume fraction] 30.0 % Low 40.7-50.3 [facility] Comment on above: Performed By: #### U RNA, URTPRT, UMICAO, UEOS, UA #### [address] [address] Tree Chipper: Ronn Arias MD Hemoglobin (Bld) [Mass/Vol] 10.0 g/dL Low 13.0-17.0 [facility] Comment on above: Performed By: #### U RNA, URTPRT, UMICAO, UEOS, UA #### [facility] [address] [place] [address] Tree Chipper: Ronn Arias MD MCH (RBC) [Entitic mass] 28.2 pg Normal 25.2-33.5 [facility] Comment on above: Performed By: #### U RNA, URTPRT, UMICAO, UEOS, UA #### [facility] [address] [place] [address] Tree Chipper: Ronn Arias MD MCHC (RBC) [Mass/Vol] 33.3 g/dL Normal 28.4-34.8 [facility] Comment on above: Performed By: #### U RNA, URTPRT, UMICAO, UEOS, UA #### [address] [address] Tree Chipper: Ronn Arias MD MCV (RBC) [Entitic vol] 84.7 fL Normal 82.6-102.9 [facility] Comment on above: Performed By: #### U RNA, URTPRT, UMICAO, UEOS, UA #### [address] [address] Tree Chipper: Ronn Arias MD NRBC Automated 0.0 per 100 WBC Normal 0.0 [facility] Comment on above: Performed By: #### U RNA, URTPRT, UMICAO, UEOS, UA #### [address] [address] Tree Chipper: Ronn Arias MD Platelet mean volume (Bld) [Entitic vol] 11.0 fL Normal 8.1-13.5 [facility] Comment on above: Performed By: #### U RNA, URTPRT, UMICAO, UEOS, UA #### [address] [address] Tree Chipper: Ronn Arias MD Platelets (Bld) [#/Vol] 157 10*3/uL Normal 138-453 [facility] Comment on above: Performed By: #### U RNA, URTPRT, UMICAO, UEOS, UA #### [address] [address] Tree Chipper: Ronn Arias MD RBC (Bld) [#/Vol] 3.54 10*6/uL Low 4.21-5.77 [facility] Comment on above: Performed By: #### U RNA, URTPRT, UMICAO, UEOS, UA #### [facility] [address] [place], [place] [phone] Tree Chipper: Ronn Arias MD WBC (Bld) [#/Vol] 16.8 10*3/uL High 3.5-11.3 [facility] Comment on above: Performed By: #### U RNA, URTPRT, UMICAO, UEOS, UA #### [facility] [address] [place], [place] [phone] Tree Chipper: Ronn Arias MD Hematocrit (Bld) [Volume fraction] 30.0 % Low 40.7 - 50.3 % [facility] Hemoglobin (Bld) [Mass/Vol] 10.0 g/dL Low 13 - 17 g/dL [facility] MCH (RBC) [Entitic mass] 28.2 pg 25.2 - 33.5 pg [facility] MCHC (RBC) [Mass/Vol] 33.3 g/dL 28.4 - 34.8 g/dL [facility] MCV (RBC) [Entitic vol] 84.7 fL 82.6 - 102.9 fL [facility] NRBC Automated 0.0 0.0 per 100 WBC [facility] Platelet distribution width (Bld) [Ratio] 14.5 % High 11.8 - 14.4 % [facility] Platelet mean volume (Bld) [Entitic vol] 11.0 fL 8.1 - 13.5 fL [facility] Platelets (Bld) [#/Vol] 157 10*3/uL [facility] RBC (Bld) [#/Vol] 3.54 10*6/uL Low 4.21 - 5.77 m/uL [facility] WBC (Bld) [#/Vol] 16.8 10*3/uL High [facility] Calcium, Ionicon 01-01-2022 Calcium [Moles/Vol] 0.95 mmol/L Low 1.13-1.33 [facility] Comment on above: Performed By: #### U RNA, URTPRT, UMICAO, UEOS, UA #### [facility] [address] [place], [place] [phone] Tree Chipper: Ronn Arias MD Calcium, Ionizedon 2 Calcium, Ionized 0.95 mmol/L Low 1.13 - 1.33 mmol/L [facility] Interpretation and review of laboratory results Abnormal [facility] Comp Metabolic Pr/rfx MGon 0 01-01-2022 Creatinine [Mass/Vol] 3.74 mg/dL High 0.70-1.20 [facility] Comment on above: Result Comment: ICTE JAYDON SPECIMEN Performed By: #### U RNA, URTPRT, UMICAO, UEOS, UA #### [facility] [address] [place], [place] [phone] Tree Chipper: Ronn Arias MD GFR, Amer 20 mL/min Low >60 [facility] Comment on above: Performed By: #### U RNA, URTPRT, UMICAO, UEOS, UA #### [facility] [address] [place], [place] [phone] Tree Chipper: Ronn Arias MD GFR,non Amer 16 mL/min Low >60 [facility] Comment on above: Performed By: #### U RNA, URTPRT, UMICAO, UEOS, UA #### [facility] [address] [place], [place] [phone] Tree Chipper: Ronn Arias MD (cont.) Normal [facility] Comment on above: Result Comment: Aver age GFR for 60-69 years old: 85 mL/min/1.73sq m Chronic Kidney Disease: <60 mL/min/1.73sq m Kidney failure: <15 mL/min/1.73sq m eGFR calculated using average adult body mass. Additional eGFR calculator available at: http://www.[employer].com/multiple_crcl_2012.htm Performed By: #### U RNA, URTPRT, UMICAO, UEOS, UA #### [facility] [address] [place] [address] Tree Chipper: Ronn Arias MD Albumin [Mass/Vol] 3.2 g/dL Low 3.5-5.2 [facility] Comment on above: Performed By: #### U RNA, URTPRT, UMICAO, UEOS, UA #### [facility] [address] [place] [address] Tree Chipper: Ronn Arias MD Albumin/Glob Ratio 1.2 Normal 1.0-2.5 [facility] Comment on above: Performed By: #### U RNA, URTPRT, UMICAO, UEOS, UA #### [address] [address] Tree Chipper: Ronn Arias MD Alkaline Phos 101 U/L Normal 40-129 [facility] Comment on above: Performed By: #### U RNA, URTPRT, UMICAO, UEOS, UA #### [address] [address] Tree Chipper: Ronn Arias MD ALT [Catalytic activity/Vol] 185 U/L High 5-41 [facility] Comment on above: Performed By: #### U RNA, URTPRT, UMICAO, UEOS, UA #### [address] [address] Tree Chipper: Ronn Arias MD Anion gap [Moles/Vol] 12 mmol/L Normal 9-17 [facility] Comment on above: Performed By: #### U RNA, URTPRT, UMICAO, UEOS, UA #### [facility] [address] [place] [address] Tree Chipper: Ronn Arias MD AST [Catalytic activity/Vol] 103 U/L High <40 [facility] Comment on above: Performed By: #### U RNA, URTPRT, UMICAO, UEOS, UA #### [facility] [address] [place] [phone] Tree Chipper: Ronn Arias MD Bilirubin [Mass/Vol] 4.3 mg/dL High 0.3-1.2 [facility] Comment on above: Performed By: #### U RNA, URTPRT, UMICAO, UEOS, UA #### [facility] [address] [place] [address] Tree Chipper: Ronn Arias MD Calcium [Mass/Vol] 6.5 mg/dL Low 8.6-10.4 [facility] Comment on above: Performed By: #### U RNA, URTPRT, UMICAO, UEOS, UA #### [address] [address] Tree Chipper: Ronn Arias MD Chloride [Moles/Vol] 107 mmol/L Normal 98-107 [facility] Comment on above: Performed By: #### U RNA, URTPRT, UMICAO, UEOS, UA #### [facility] [address] [place] [address] Tree Chipper: Ronn Arias MD CO2 [Moles/Vol] 19 mmol/L Low 20-31 [facility] Comment on above: Performed By: #### U RNA, URTPRT, UMICAO, UEOS, UA #### [facility] [address] [place] [phone] Tree Chipper: Ronn Arias MD Glucose [Mass/Vol] 109 mg/dL High 70-99 [facility] Comment on above: Performed By: #### U RNA, URTPRT, UMICAO, UEOS, UA #### [facility] [address] [place] [phone] Tree Chipper: Ronn Arias MD Potassium [Moles/Vol] 4.4 mmol/L Normal 3.7-5.3 [facility] Comment on above: Performed By: #### U RNA, URTPRT, UMICAO, UEOS, UA #### [address] [address] Tree Chipper: Ronn Arias MD Protein [Mass/Vol] 5.8 g/dL Low 6.4-8.3 [facility] Comment on above: Performed By: #### U RNA, URTPRT, UMICAO, UEOS, UA #### [address] [address] Tree Chipper: Ronn Arias MD Sodium [Moles/Vol] 138 mmol/L Normal 135-144 [facility] Comment on above: Performed By: #### U RNA, URTPRT, UMICAO, UEOS, UA #### [facility] [address] [place] [address] Tree Chipper: Ronn Arias MD Urea nitrogen [Mass/Vol] 59 mg/dL High 8-23 [facility] Comment on above: Performed By: #### U RNA, URTPRT, UMICAO, UEOS, UA #### [address] [address] Tree Chipper: Ronn Arias MD Creatinine [Mass/Vol] 3.86 mg/dL High 0.70-1.20 [facility] Comment on above: Result Comment: ICTE JAYDON SPECIMEN Performed By: #### U RNA, URTPRT, UMICAO, UEOS, UA #### [address] [address] Tree Chipper: Ronn Arias MD GFR, Amer 19 mL/min Low >60 [facility] Comment on above: Performed By: #### U RNA, URTPRT, UMICAO, UEOS, UA #### [facility] [place] [address] Tree Chipper: Ronn Arias MD GFR,non Amer 16 mL/min Low >60 [facility] Comment on above: Performed By: #### U RNA, URTPRT, UMICAO, UEOS, UA #### [address] [address] Tree Chipper: Ronn Arias MD (cont.) Normal [facility] Comment on above: Result Comment: Aver age GFR for 60-69 years old: 85 mL/min/1.73sq m Chronic Kidney Disease: <60 mL/min/1.73sq m Kidney failure: <15 mL/min/1.73sq m eGFR calculated using average adult body mass. Additional eGFR calculator available at: http://www.[employer].MJH/multiple_crcl_2011.htm Performed By: #### U RNA, URTPRT, UMICAO, UEOS, UA #### [facility] [address] [place] [phone] Tree Chipper: Ronn Arias MD Albumin [Mass/Vol] 3.0 g/dL Low 3.5-5.2 [facility] Comment on above: Performed By: #### U RNA, URTPRT, UMICAO, UEOS, UA #### [facility] [address] [place] [address] Tree Chipper: Ronn Arias MD Albumin/Glob Ratio 1.2 Normal 1.0-2.5 [facility] Comment on above: Performed By: #### U RNA, URTPRT, UMICAO, UEOS, UA #### [facility] [place] [address] Tree Chipper: Ronn Arias MD Alkaline Phos 98 U/L Normal 40-129 [facility] Comment on above: Performed By: #### U RNA, URTPRT, UMICAO, UEOS, UA #### [facility] [address] [place] [address] Tree Chipper: Ronn Arias MD ALT [Catalytic activity/Vol] 191 U/L High 5-41 [facility] Comment on above: Performed By: #### U RNA, URTPRT, UMICAO, UEOS, UA #### [facility] [address] [place] [address] Tree Chipper: Ronn Arias MD Anion gap [Moles/Vol] 13 mmol/L Normal 9-17 [facility] Comment on above: Performed By: #### U RNA, URTPRT, UMICAO, UEOS, UA #### [facility] [address] [place] [address] Tree Chipper: Ronn Arias MD AST [Catalytic activity/Vol] 112 U/L High <40 [facility] Comment on above: Performed By: #### U RNA, URTPRT, UMICAO, UEOS, UA #### [facility] [address] [place] [address] Tree Chipper: Ronn Arias MD Bilirubin [Mass/Vol] 4.5 mg/dL High 0.3-1.2 [facility] Comment on above: Performed By: #### U RNA, URTPRT, UMICAO, UEOS, UA #### [facility] [address] [place] [address] Tree Chipper: Ronn Arias MD Calcium [Mass/Vol] 6.5 mg/dL Low 8.6-10.4 [facility] Comment on above: Performed By: #### U RNA, URTPRT, UMICAO, UEOS, UA #### [facility] [address] [place] [address] Tree Chipper: Ronn Arias MD Chloride [Moles/Vol] 109 mmol/L High 98-107 [facility] Comment on above: Performed By: #### U RNA, URTPRT, UMICAO, UEOS, UA #### [facility] [address] [place] [address] Tree Chipper: Ronn Arias MD CO2 [Moles/Vol] 18 mmol/L Low 20-31 [facility] Comment on above: Performed By: #### U RNA, URTPRT, UMICAO, UEOS, UA #### [facility] [address] [place] [address] Tree Chipper: Ronn Arias MD Glucose [Mass/Vol] 106 mg/dL High 70-99 [facility] Comment on above: Performed By: #### U RNA, URTPRT, UMICAO, UEOS, UA #### [facility] [address] [place] [address] Tree Chipper: Ronn Arias MD Potassium [Moles/Vol] 4.5 mmol/L Normal 3.7-5.3 [facility] Comment on above: Performed By: #### U RNA, URTPRT, UMICAO, UEOS, UA #### [facility] [address] [place] [address] Tree Chipper: Ronn Arias MD Protein [Mass/Vol] 5.5 g/dL Low 6.4-8.3 [facility] Comment on above: Performed By: #### U RNA, URTPRT, UMICAO, UEOS, UA #### [facility] [address] [place] [address] Tree Chipper: Ronn Arias MD Sodium [Moles/Vol] 140 mmol/L Normal 135-144 [facility] Comment on above: Performed By: #### U RNA, URTPRT, UMICAO, UEOS, UA #### [facility] [address] [place] [address] [phone] Tree Chipper: Ronn Arias MD Urea nitrogen [Mass/Vol] 59 mg/dL High 8-23 [facility] Comment on above: Performed By: #### U RNA, URTPRT, UMICAO, UEOS, UA #### [facility] [address] [place], [place] [phone] Tree Chipper: Ronn Arias MD Comprehensive Metabolic Pane l w/ Reflex to MGon 01-01-2022 Albumin [Mass/Vol] 3.2 g/dL Low 3.5 - 5.2 g/dL [facility] [employer] Albumin/Globulin [Mass ratio] 1.2 {ratio} 1 - 2.5 [facility] ALP (Bld) [Catalytic activity/Vol] 101 U/L 40 - 129 U/L [facility] ALT [Catalytic activity/Vol] 185 U/L High 5 - 41 U/L [facility] Anion gap [Moles/Vol] 12 mmol/L 9 - 17 mmol/L [facility] [employer] AST [Catalytic activity/Vol] 103 U/L High NINF - 40 U/L [facility] Bilirubin [Mass/Vol] 4.3 mg/dL High 0.3 - 1 .2 mg/dL [facility] [employer] Calcium [Mass/Vol] 6.5 mg/dL Low 8.6 - 10. 4 mg/dL [facility] Chloride [Moles/Vol] 107 mmol/L 98 - 10 7 mmol/L [facility] CO2 [Moles/Vol] 19 mmol/L Low 20 - 31 mmol/L [facility] Creatinine [Mass/Vol] 3.74 mg/dL High 0.7 - 1.2 mg/dL [facility] [employer] Comment on above: ICTERIC SPECIMEN Free PSA/Total PSA [Mass fraction] 5.8 g/dL Low 6.4 - 8.3 g/dL [facility] GFR 20 mL/min Low 60 - PI NF mL/min [facility] GFR Non- 16 mL/min Low 60 - PINF mL/min [facility] GFR/1.73 sq M.predicted MDRD (S/P/Bld) [Vol rate/Area] [facility] Comment on above: Average GFR for 60-6 9 years old: 85 mL/min/1.73sq m Chronic Kidney Disease: <60 mL/min/1.73sq m Kidney failure: <15 mL/min/1.73sq m eGFR calculated using average adult body mass. Additional eGFR calculator available at: http://www.[employer]/multiple_crcl_2012.htm Glucose [Mass/Vol] 109 mg/dL High 70 - 99 mg/dL [facility] Interpretation and review of laboratory results Abnormal [facility] Potassium [Moles/Vol] 4.4 mmol/L 3.7 - 5.3 mmol/L [facility] Sodium [Moles/Vol] 138 mmol/L 135 - 144 mmol/L [facility] Urea nitrogen (BldV) [Mass/Vol] 59 mg/dL High 8 - 23 mg/dL [facility] Albumin [Mass/Vol] 3 g/dL Low 3.5 - 5.2 g/dL [facility] Albumin/Globulin [Mass ratio] 1.2 {ratio} 1 - 2.5 [facility] ALP (Bld) [Catalytic activity/Vol] 98 U/L 40 - 129 U/L [facility] ALT [Catalytic activity/Vol] 191 U/L High 5 - 41 U/L [facility] Anion gap [Moles/Vol] 13 mmol/L 9 - 17 mmol/L [facility] AST [Catalytic activity/Vol] 112 U/L High NINF - 40 U/L [facility] Bilirubin [Mass/Vol] 4.5 mg/dL High 0.3 - 1 .2 mg/dL [facility] Calcium [Mass/Vol] 6.5 mg/dL Low 8.6 - 10. 4 mg/dL [facility] Chloride [Moles/Vol] 109 mmol/L High 98 - 10 7 mmol/L [facility] CO2 [Moles/Vol] 18 mmol/L Low 20 - 31 mmol/L [facility] Creatinine [Mass/Vol] 3.86 mg/dL High 0.7 - 1.2 mg/dL [facility] Comment on above: ICTERIC SPECIMEN Free PSA/Total PSA [Mass fraction] 5.5 g/dL Low 6.4 - 8.3 g/dL [facility] [employer] GFR 19 mL/min Low 60 - PI NF mL/min [facility] [employer] GFR Non- 16 mL/min Low 60 - PINF mL/min [facility] [employer] GFR/1.73 sq M.predicted MDRD (S/P/Bld) [Vol rate/Area] [facility] Comment on above: Average GFR for 60-6 9 years old: 85 mL/min/1.73sq m Chronic Kidney Disease: <60 mL/min/1.73sq m Kidney failure: <15 mL/min/1.73sq m eGFR calculated using average adult body mass. Additional eGFR calculator available at: http://www.[employer]/multiple_crcl_2011.htm Glucose [Mass/Vol] 106 mg/dL High 70 - 99 mg/dL [facility] Potassium [Moles/Vol] 4.5 mmol/L 3.7 - 5.3 mmol/L [facility] Sodium [Moles/Vol] 140 mmol/L 135 - 144 mmol/L [facility] Urea nitrogen (BldV) [Mass/Vol] 59 mg/dL High 8 - 23 mg/dL [facility] [employer] Differentialon 01-01-2022 Abs. Basophil 0.03 k/uL Normal 0.00-0.20 [facility] Comment on above: Performed By: #### U RNA, URTPRT, UMICAO, UEOS, UA #### [facility] [address] [place], [place] [phone] Tree Chipper: Ronn Arias MD Abs.Imm.Granulocyte 0.10 k/uL Normal 0.00-0.30 [facility] Comment on above: Performed By: #### U RNA, URTPRT, UMICAO, UEOS, UA #### [facility] [address] [place] [address] Tree Chipper: Ronn Arias MD Abs.Neutrophil (Seg) 14.48 k/uL High 1.50-8.10 [facility] Comment on above: Performed By: #### U RNA, URTPRT, UMICAO, UEOS, UA #### [address] [address] Tree Chipper: Ronn Arias MD Basophils/100 WBC (Bld) 0 % Normal 0-2 [facility] Comment on above: Performed By: #### U RNA, URTPRT, UMICAO, UEOS, UA #### [place] [address] Tree Chipper: Ronn Arias MD Eosinophils (Bld) [#/Vol] 0.06 10*3/uL Normal 0.00-0.44 [facility] Comment on above: Performed By: #### U RNA, URTPRT, UMICAO, UEOS, UA #### [address] [address] Tree Chipper: Ronn Arias MD Eosinophils/100 WBC (Bld) 0 % Low 1-4 [facility] Comment on above: Performed By: #### U RNA, URTPRT, UMICAO, UEOS, UA #### [place] [address] Tree Chipper: Ronn Arias MD Immature granulocytes/100 WBC (Bld) 1 % High 0 [facility] Comment on above: Performed By: #### U RNA, URTPRT, UMICAO, UEOS, UA #### [address] [address] Tree Chipper: Ronn Arias MD Lymphocytes (Bld) [#/Vol] 0.87 10*3/uL Low 1.10-3.70 [facility] Comment on above: Performed By: #### U RNA, URTPRT, UMICAO, UEOS, UA #### [facility] [address] [place] [address] Tree Chipper: Ronn Arias MD Lymphocytes/100 WBC (Bld) 5 % Low 24-43 [facility] Comment on above: Performed By: #### U RNA, URTPRT, UMICAO, UEOS, UA #### [facility] [address] [place] [address] Tree Chipper: Ronn Arias MD Monocytes (Bld) [#/Vol] 1.28 10*3/uL High 0.10-1.20 [facility] Comment on above: Performed By: #### U RNA, URTPRT, UMICAO, UEOS, UA #### [facility] [address] [place] [address] Tree Chipper: Ronn Arias MD Monocytes/100 WBC (Bld) 8 % Normal 3-12 [facility] Comment on above: Performed By: #### U RNA, URTPRT, UMICAO, UEOS, UA #### [facility] [address] [place] [phone] Tree Chipper: Ronn Arias MD Neutrophil (Seg) 86 % High 36-65 [facility] Comment on above: Performed By: #### U RNA, URTPRT, UMICAO, UEOS, UA #### [facility] [address] [place] [phone] Tree Chipper: Ronn Arias MD RBC morphology finding Nom (Bld) ANISOCYTOSIS PRESENT Normal [facility] Comment on above: Performed By: #### U RNA, URTPRT, UMICAO, UEOS, UA #### [facility] [address] [place] [address] Tree Chipper: Ronn Arias MD Absolute Eos # 0.06 [facility] Absolute Immature Granulocyte 0.10 [facility] Absolute Lymph # 0.87 Low [facility] Absolute [place] # 1.28 High [facility] [...] High 36 - 65 % [facility] Segs Absolute 14.[address] [facility] Hemoglobin A1Con 01-01-2022 Glucose [Mass/Vol] 117 mg/dL Normal [facility] Comment on above: Result Comment: The ADA and AACC recommend providing the estimated average glucose result to permit better patient understanding of their HBA1c result. Performed By: #### U RNA, URTPRT, UMICAO, UEOS, UA #### [facility] [address] [place], [place] [phone] Tree Chipper: Ronn Arias MD HbA1c (Bld) [Mass fraction] 5.7 % Normal 4.0-6.0 [facility] Comment on above: Performed By: #### U RNA, URTPRT, UMICAO, UEOS, UA #### [facility] [address] [place], [place] [phone] Tree Chipper: Ronn Arias MD Glucose [Mass/Vol] 117 mg/dL [facility] Comment on above: The ADA and AACC rec ommend providing the estimated average glucose result to permit better patient understanding of their HBA1c result. HbA1c (Bld) [Mass fraction] 5.7 % 4 - 6 % [facility] Hepatic Function Panelon Albumin [Mass/Vol] 3.2 g/dL Low 3.5 - 5.2 g/dL [facility] Albumin/Globulin [Mass ratio] 1.3 {ratio} 1 - 2.5 [facility] ALP (Bld) [Catalytic activity/Vol] 98 U/L 40 - 129 U/L [facility] ALT [Catalytic activity/Vol] 202 U/L High 5 - 41 U/L [facility] AST [Catalytic activity/Vol] 117 U/L High NINF - 40 U/L [facility] Bilirubin [Mass/Vol] 4.4 mg/dL High 0.3 - 1 .2 mg/dL [facility] Bilirubin, Indirect 0.3 mg/dL 0 - 1 mg/dL [facility] Bilirubin.indirect [Mass/Vol] 4.1 mg/dL High NINF - 0.31 mg/dL [facility] Free PSA/Total PSA [Mass fraction] 5.6 g/dL Low 6.4 - 8.3 g/dL [facility] Interpretation and review of laboratory results Abnormal [facility] Lactate Dehydrogenaseon 12-21 LDH [Catalytic activity/Vol] 214 U/L Normal 135-225 [facility] Comment on above: Performed By: #### U RNA, URTPRT, UMICAO, UEOS, UA #### [facility] [address] [place] [address] Tree Chipper: Ronn Arias MD LD 214 U/L 135 - 225 U/L [facility] Lactate, Sepsison 01-01-2022 Lactic Acid,Sep Wbld 1.2 mmol/L Normal 0.5-1.9 [facility] Comment on above: Performed By: #### U RNA, URTPRT, UMICAO, UEOS, UA #### [facility] [address] [place], [place] [phone] Tree Chipper: Ronn Arias MD Lactic Acid, Sepsis, Whole Blood 1.2 mmol/L 0.5 - 1.9 mmol/L [facility] Lactic Acid,Sep Wbld 1.3 mmol/L Normal 0.5-1.9 [facility] Comment on above: Performed By: #### U RNA, URTPRT, UMICAO, UEOS, UA #### [facility] [address] [place] [address] Tree Chipper: Ronn Arias MD Lactic Acid, Sepsis, Whole Blood 1.3 mmol/L 0.5 - 1.9 mmol/L [facility] Lactic Acid,Sep Wbld 0.9 mmol/L Normal 0.5-1.9 [facility] Comment on above: Performed By: #### U RNA, URTPRT, UMICAO, UEOS, UA #### [facility] [address] [place] [address] Tree Chipper: Ronn Arias MD Lactic Acid, Sepsis, Whole Blood 0.9 mmol/L 0.5 - 1.9 mmol/L [facility] Lactic Acid,Sep Wbld 1.3 mmol/L Normal 0.5-1.9 [facility] Comment on above: Performed By: #### U RNA, URTPRT, UMICAO, UEOS, UA #### [facility] [address] [place] [address] Tree Chipper: Ronn Arias MD Lactic Acid, Sepsis, Whole Blood 1.3 mmol/L 0.5 - 1.9 mmol/L [facility] Lipaseon 01-01-2022 Lipase [Catalytic activity/Vol] 1918 U/L High 13-60 [facility] Comment on above: Performed By: #### U RNA, URTPRT, UMICAO, UEOS, UA #### [facility] [address] [place] [address] Tree Chipper: Ronn Arias MD Lipase [Catalytic activity/Vol] 1918 U/L High 13 - 60 U/L [facility] [employer] Lipid Panelon 01-01-2022 Cholesterol [Mass/Vol] 103 mg/dL NINF - 200 mg/dL [facility] [employer] Comment on above: Cholesterol Guidelines: <200 Desirable 200-240 Borderline >240 Undesirable Cholesterol in HDL [Mass/Vol] 46 mg/dL 40 - PINF mg/dL [facility] [employer] Comment on above: HDL Guidelines: <40 Undesirable 40-59 Borderline >59 Desirable Cholesterol in LDL [Mass/Vol] 46 mg/dL 0 - 130 mg/dL [facility] [employer] Comment on above: LDL Guidelines: <100 Desirable 100-129 Near to/above Desirable 130-159 Borderline >159 Undesirable Direct (measured) LDL and calculated LDL are not interchangeable tests. Cholesterol.total/Ch olesterol in HDL [Mass ratio] 2.2 {ratio} NINF - 5 [facility] Triglyceride [Mass/Vol] 53 mg/dL NINF - 150 mg/dL [facility] [employer] Comment on above: Triglyceride Guidelines: <150 Desirable 150-199 Borderline 200-499 High >499 Very high Based on AHA Guidelines for fasting triglyceride, January 2012. [facility] [employer] Lipid Profileon 01-01-2022 Cholesterol [Mass/Vol] 103 mg/dL Normal <200 [facility] Comment on above: Result Comment: Cholesterol Guidelines: <200 Desirable 200-240 Borderline >240 Undesirable Performed By: #### U RNA, URTPRT, UMICAO, UEOS, UA #### [facility] [address] [place], [place] [phone] Tree Chipper: Ronn Arias MD Cholesterol in HDL [Mass/Vol] 46 mg/dL Normal >40 [facility] Comment on above: Result Comment: HDL Guidelines: <40 Undesirable 40-59 Borderline >59 Desirable Performed By: #### U RNA, URTPRT, UMICAO, UEOS, UA #### [facility] [address] [place], [place] [phone] Tree Chipper: Ronn Arias MD Cholesterol in LDL [Mass/Vol] 46 mg/dL Normal 0-130 [facility] Comment on above: Result Comment: LDL Guidelines: <100 Desirable 100-129 Near to/above Desirable 130-159 Borderline >159 Undesirable Direct (measured) LDL and calculated LDL are not interchangeable tests. Performed By: #### U RNA, URTPRT, UMICAO, UEOS, UA #### [facility] [address] [place] [address] Tree Chipper: Ronn Arias MD Cholesterol.total/Ch olesterol in HDL [Mass ratio] 2.2 {ratio} Normal <5 [facility] Comment on above: Performed By: #### U RNA, URTPRT, UMICAO, UEOS, UA #### [facility] [address] [place] [address] Tree Chipper: Ronn Arias MD Triglyceride [Mass/Vol] 53 mg/dL Normal <150 [facility] Comment on above: Result Comment: Triglyceride Guidelines: <150 Desirable 150-199 Borderline 200-499 High >499 Very high Based on AHA Guidelines for fasting triglyceride, January 2012. Performed By: #### U RNA, URTPRT, UMICAO, UEOS, UA #### [facility] [address] [place] [address] Tree Chipper: Ronn Arias MD Liver Profileon 01-01-2022 Albumin [Mass/Vol] 3.2 g/dL Low 3.5-5.2 [facility] Comment on above: Performed By: #### U RNA, URTPRT, UMICAO, UEOS, UA #### [facility] [address] [place] [address] Tree Chipper: Ronn Arias MD Albumin/Glob Ratio 1.3 Normal 1.0-2.5 [facility] Comment on above: Performed By: #### U RNA, URTPRT, UMICAO, UEOS, UA #### [facility] [address] [place] [address] Tree Chipper: Ronn Arias MD Alkaline Phos 98 U/L Normal 40-129 [facility] Comment on above: Performed By: #### U RNA, URTPRT, UMICAO, UEOS, UA #### [facility] [address] [place] [phone] Tree Chipper: Ronn Arias MD ALT [Catalytic activity/Vol] 202 U/L High 5-41 [facility] Comment on above: Performed By: #### U RNA, URTPRT, UMICAO, UEOS, UA #### [facility] [address] [place] [address] Tree Chipper: Ronn Arias MD AST [Catalytic activity/Vol] 117 U/L High <40 [facility] Comment on above: Performed By: #### U RNA, URTPRT, UMICAO, UEOS, UA #### [facility] [address] [place] [address] Tree Chipper: Ronn Arias MD Bilirubin [Mass/Vol] 4.4 mg/dL High 0.3-1.2 [facility] Comment on above: Performed By: #### U RNA, URTPRT, UMICAO, UEOS, UA #### [facility] [address] [place] [address] Tree Chipper: Ronn Arias MD Bilirubin, Indirect 0.3 mg/dL Normal 0.00-1.00 [facility] Comment on above: Performed By: #### U RNA, URTPRT, UMICAO, UEOS, UA #### [facility] [address] [place] [phone] Tree Chipper: Ronn Arias MD Bilirubin.indirect [Mass/Vol] 4.1 mg/dL High <0.31 [facility] Comment on above: Performed By: #### U RNA, URTPRT, UMICAO, UEOS, UA #### [facility] [address] [place] [address] [phone] Tree Chipper: Ronn Arias MD Protein [Mass/Vol] 5.6 g/dL Low 6.4-8.3 [facility] Comment on above: Performed By: #### U RNA, URTPRT, UMICAO, UEOS, UA #### [facility] [address] [place], [place] [phone] Tree Chipper: Ronn Arias MD MRI ABDOMEN WO CONTRAST [...] Aliya Salgado MD 01/01/22 Final result Normal [facility] 1. Christen pancreatic inflammation suggestive of acute pancreatitis. No pancreatic duct dilatation. 2. Cholelithiasis without evidence for acute cholecystitis, biliary dilatation or choledocholithiasis. [facility] EXAMINATION: MRI OF THE ABDOMEN WITHOUT [...] findings do not require dedicated imaging follow-up. [facility] Aliya Salgado MD - 01/01/2022 EXAMINATION: [...] for acute cholecystitis, biliary dilatation or choledocholithiasis. [employer]: Radiology Study observation (narrative) [employer]: MRI ABDOMEN WO CONTRAST MRCP Ordered By: Aliya Salgado on 01-01-2022 [employer]: Magnesiumon 01-01-2022 Magnesium [Mass/Vol] 1.7 mg/dL Normal 1.6-2.6 [facility] Comment on above: Performed By: #### U RNA, URTPRT, UMICAO, UEOS, UA #### [facility] [address] [place] [address] Tree Chipper: Ronn Arias MD Magnesium [Mass/Vol] 1.7 mg/dL 1.6 - 2 .6 mg/dL [employer] Magnesium [Mass/Vol] 1.7 mg/dL Normal 1.6-2.6 [facility] Comment on above: Performed By: #### U RNA, URTPRT, UMICAO, UEOS, UA #### [facility] [address] [place] [address] [phone] Tree Chipper: Ronn Arias MD Magnesium [Mass/Vol] 1.7 mg/dL 1.6 - 2 .6 mg/dL [facility] No Panel Informationon 01-01 Interpretation and review of laboratory results Abnormal [facility] Interpretation and review of laboratory results Abnormal [facility] PTon 01-01-2022 INR Coag (PPP) [Relative time] 1.2 {INR} Normal [facility] Comment on above: Result Comment: Therapeutic Range: Moderate Anticoagulant Intensity: INR = 2.0-3.0 High Anticoagulant Intensity: INR = 2.5-3.5 Performed By: #### U RNA, URTPRT, UMICAO, UEOS, UA #### [facility] [address] [place] [address] [phone] Tree Chipper: Ronn Arias MD PT Coag (PPP) [Time] 12.7 s High 9.1-12.3 [facility] Comment on above: Performed By: #### U RNA, URTPRT, UMICAO, UEOS, UA #### [facility] [address] [place] [address] [phone] Tree Chipper: Ronn Arias MD Phosphoruson 01-01-2022 Phosphate [Mass/Vol] 3.0 mg/dL 2.5 - 4 .5 mg/dL [facility] Phosphorus, Inorg.on 022 Phosphorus, Inorg. 3.0 mg/dL Normal 2.5-4.5 [facility] Comment on above: Performed By: #### U RNA, URTPRT, UMICAO, UEOS, UA #### [facility] [address] [place], [place] [phone] Tree Chipper: Ronn Arias MD Procalcitoninon 01-01-2022 Procalcitonin 67.66 ng/mL High <0.09 [facility] Comment on above: Result Comment: Suspected [...] entered into the Change in Procalcitonin Calculator (www.vejjrh-owg-ijmlvnovlw.MJH) to determine the patient's Mortality Risk Prognosis In healthy neonates, plasma Procalcitonin (PCT) concentrations increase gradually after , reaching peak values at about 24 hours of age then decrease to normal values below 0.5 ng/mL by 48-72 hours of age. Performed By: #### U RNA, URTPRT, UMICAO, UEOS, UA #### [facility] [address] [place] [address] [phone] Tree Chipper: Ronn Arias MD Interpretation and review of laboratory results Abnormal [facility] Procalcitonin 67.66 ng/mL High NINF - 0.09 ng/mL [facility] Comment on above: Suspected Sepsis: [...] entered into the Change in Procalcitonin Calculator (www.yjogeo-ywt-gbjmzzmbwj.MJH) to determine the patient's Mortality Risk Prognosis In healthy neonates, plasma Procalcitonin (PCT) concentrations increase gradually after , reaching peak values at about 24 hours of age then decrease to normal values below 0.5 ng/mL by 48-72 hours of age. Protein, urine, randomon Protein (U) [Mass/Vol] 59 mg/dL [facility] Comment on above: No normal range esta blished. [facility] Protime-INRon 01-01-2022 INR Coag (Bld) [Relative time] 1.2 {INR} [facility] Comment on above: Therapeutic Range: Moderate Anticoagulant Intensity: INR = 2.0-3.0 High Anticoagulant Intensity: INR = 2.5-3.5 Interpretation and review of laboratory results Abnormal [facility] PT Coag (PPP) [Time] 12.7 s High [facility] Sodium, Random Uron 01-02-20 Sodium (U) [Moles/Vol] 37 mmol/L Normal [facility] Comment on above: Result Comment: No n ormal range established. Performed By: #### U RNA, URTPRT, UMICAO, UEOS, UA #### [facility] [address] [place], [place] [phone] Tree Chipper: Ronn Arias MD Sodium, urine, randomon 12-21 Sodium (U) [Moles/Vol] 37 mmol/L [facility] Comment on above: No normal range esta blished. [facility] Triglycerideon 01-01-2022 Triglyceride [Mass/Vol] 58 mg/dL NINF - 150 mg/dL [facility] Comment on above: Triglyceride Guidelines: <150 Desirable 150-199 Borderline 200-499 High >499 Very high Based on AHA Guidelines for fasting triglyceride, January 2012. Triglycerideson 01-01-2022 Triglyceride [Mass/Vol] 58 mg/dL Normal <150 [facility] Comment on above: Result Comment: Triglyceride Guidelines: <150 Desirable 150-199 Borderline 200-499 High >499 Very high Based on AHA Guidelines for fasting triglyceride, January 2012. Performed By: #### U RNA, URTPRT, UMICAO, UEOS, UA #### [facility] [address] [place], [place] [phone] Tree Chipper: Ronn Arias MD Troponinon 01-01-2022 Troponin, High Sens 19 ng/L Normal 0-22 [facility] Comment on above: Result Comment: High Sensitivity Troponin values cannot be compared with other Troponin methodologies. Patients with high levels of Biotin oral intake (i.e >5mg/day) may have falsely decreased Troponin levels. Samples collected within 8 hours of biotin intake may require additional information for diagnosis. Performed By: #### U RNA, URTPRT, UMICAO, UEOS, UA #### [facility] [address] [place], [place] [phone] Tree Chipper: Ronn Arias MD Troponin, High Sensitivity 19 ng/L 0 - 22 ng/L [facility] [employer] Comment on above: High Sensitivity Troponin values cannot be compared with other Troponin methodologies. Patients with high levels of Biotin oral intake (i.e >5mg/day) may have falsely decreased Troponin levels. Samples collected within 8 hours of biotin intake may require additional information for diagnosis. [facility] [employer] Troponin, High Sens 17 ng/L Normal 0-22 [facility] Comment on above: Result Comment: High Sensitivity Troponin values cannot be compared with other Troponin methodologies. Patients with high levels of Biotin oral intake (i.e >5mg/day) may have falsely decreased Troponin levels. Samples collected within 8 hours of biotin intake may require additional information for diagnosis. Performed By: #### U RNA, URTPRT, UMICAO, UEOS, UA #### [facility] [address] [place], [place] [phone] Tree Chipper: Ronn Arias MD Troponin, High Sensitivity 17 ng/L 0 - 22 ng/L [facility] Comment on above: High Sensitivity Troponin values cannot be compared with other Troponin methodologies. Patients with high levels of Biotin oral intake (i.e >5mg/day) may have falsely decreased Troponin levels. Samples collected within 8 hours of biotin intake may require additional information for diagnosis. [facility] [employer] Troponin, High Sens 18 ng/L Normal 0-22 [facility] Comment on above: Result Comment: High Sensitivity Troponin values cannot be compared with other Troponin methodologies. Patients with high levels of Biotin oral intake (i.e >5mg/day) may have falsely decreased Troponin levels. Samples collected within 8 hours of biotin intake may require additional information for diagnosis. Performed By: #### U RNA, URTPRT, CHEO UEOS, UA #### [facility] [address] [place] [address] Tree Chipper: Ronn Arias MD Troponin, High Sens 18 ng/L Normal 0-22 [facility] Comment on above: Result Comment: High Sensitivity Troponin values cannot be compared with other Troponin methodologies. Patients with high levels of Biotin oral intake (i.e >5mg/day) may have falsely decreased Troponin levels. Samples collected within 8 hours of biotin intake may require additional information for diagnosis. Performed By: #### U RNA, URTPRT, UMICAO, UEOS, UA #### [facility] [address] [place], [place] [phone] Tree Chipper: Ronn Arias MD Troponin, High Sensitivity 18 ng/L 0 - 22 ng/L [facility] [employer] Comment on above: High Sensitivity Troponin values cannot be compared with other Troponin methodologies. Patients with high levels of Biotin oral intake (i.e >5mg/day) may have falsely decreased Troponin levels. Samples collected within 8 hours of biotin intake may require additional information for diagnosis. [facility] Troponin, High Sensitivity 18 ng/L 0 - 22 ng/L [facility] [employer] Comment on above: High Sensitivity Troponin values cannot be compared with other Troponin methodologies. Patients with high levels of Biotin oral intake (i.e >5mg/day) may have falsely decreased Troponin levels. Samples collected within 8 hours of biotin intake may require additional information for diagnosis. Troponin, High Sens 18 ng/L Normal 0-22 [facility] Comment on above: Result Comment: High Sensitivity Troponin values cannot be compared with other Troponin methodologies. Patients with high levels of Biotin oral intake (i.e >5mg/day) may have falsely decreased Troponin levels. Samples collected within 8 hours of biotin intake may require additional information for diagnosis. Performed By: #### U RNA, URTPRT, UMICAO, UEOS, UA #### [facility] [address] [place] [address] Tree Chipper: Ronn Arias MD Troponin, High Sens 17 ng/L Normal 0-22 [facility] Comment on above: Result Comment: High Sensitivity Troponin values cannot be compared with other Troponin methodologies. Patients with high levels of Biotin oral intake (i.e >5mg/day) may have falsely decreased Troponin levels. Samples collected within 8 hours of biotin intake may require additional information for diagnosis. Performed By: #### U RNA, URTPRT, UMICAO, UEOS, UA #### [facility] [address] [place] [address] Tree Chipper: Ronn Arias MD Troponin, High Sensitivity 18 ng/L 0 - 22 ng/L [facility] Comment on above: High Sensitivity Troponin values cannot be compared with other Troponin methodologies. Patients with high levels of Biotin oral intake (i.e >5mg/day) may have falsely decreased Troponin levels. Samples collected within 8 hours of biotin intake may require additional information for diagnosis. [facility] Troponin, High Sens 15 ng/L Normal 0-22 [facility] Comment on above: Result Comment: High Sensitivity Troponin values cannot be compared with other Troponin methodologies. Patients with high levels of Biotin oral intake (i.e >5mg/day) may have falsely decreased Troponin levels. Samples collected within 8 hours of biotin intake may require additional information for diagnosis. Performed By: #### U RNA, URTPRT, UMICAO, UEOS, UA #### [facility] [address] [place] [address] Tree Chipper: Ronn Arias MD Troponin, High Sensitivity 17 ng/L 0 - 22 ng/L [facility] Comment on above: High Sensitivity Troponin values cannot be compared with other Troponin methodologies. Patients with high levels of Biotin oral intake (i.e >5mg/day) may have falsely decreased Troponin levels. Samples collected within 8 hours of biotin intake may require additional information for diagnosis. [facility] Troponin, High Sensitivity 15 ng/L 0 - 22 ng/L [facility] Comment on above: High Sensitivity Troponin values cannot be compared with other Troponin methodologies. Patients with high levels of Biotin oral intake (i.e >5mg/day) may have falsely decreased Troponin levels. Samples collected within 8 hours of biotin intake may require additional information for diagnosis. [facility] UA w/Reflex Cultureon 2021 Bilirubin, SemiQt,Ur MOD Abnormal NEG [facility] Comment on above: Performed By: #### U RNA, URTPRT, UMICAO, UEOS, UA #### [facility] [address] [place] [id number] Tree Chipper: Ronn Arias MD Blood, Urine SMALL Abnormal NEG [facility] Comment on above: Performed By: #### U RNA, URTPRT, UMICAO, UEOS, UA #### [facility] [address] [place] [address] Tree Chipper: Ronn Arias MD Clarity (U) Turbid Abnormal CLEAR [facility] Comment on above: Performed By: #### U RNA, URTPRT, UMICAO, UEOS, UA #### [facility] [address] [place] [address] Tree Chipper: Ronn Arias MD Color (U) Dark Yellow Abnormal YEL [facility] Comment on above: Performed By: #### U RNA, URTPRT, UMICAO, UEOS, UA #### [facility] [address] [place] [address] Tree Chipper: Ronn Arias MD Glucose Ql (U) Negative Normal NEG [facility] Comment on above: Performed By: #### U RNA, URTPRT, UMICAO, UEOS, UA #### [facility] [address] [place] [id number] Tree Chipper: Ronn Arias MD Ketones Ql (U) Negative Normal NEG [facility] Comment on above: Performed By: #### U RNA, URTPRT, UMICAO, UEOS, UA #### [facility] [address] [place] [phone] Tree Chipper: Ronn Arias MD Leukocyte esterase Test strip Ql (U) Negative Normal NEG [facility] Comment on above: Performed By: #### U RNA, URTPRT, UMICAO, UEOS, UA #### [address] [address] Tree Chipper: Ronn Arias MD Nitrite,Ur Negative Normal NEG [facility] Comment on above: Performed By: #### U RNA, URTPRT, UMICAO, UEOS, UA #### [facility] [employer] [address] [place] [phone] Tree Chipper: Ronn Arias MD PH,Ur 5.0 Normal 5.0-8.0 [facility] Comment on above: Performed By: #### U RNA, URTPRT, UMICAO, UEOS, UA #### [facility] [address] [place] [phone] Tree Chipper: Ronn Arias MD Protein Ql (U) 1+ Abnormal NEG [facility] Comment on above: Performed By: #### U RNA, URTPRT, UMICAO, UEOS, UA #### [facility] [address] [place] [address] Tree Chipper: Ronn Arias MD Spec. [place],Ur 1.013 Normal 1.005-1.03 0 [facility] Comment on above: Performed By: #### U RNA, URTPRT, UMICAO, UEOS, UA #### [facility] [address] [place], [place] [phone] Tree Chipper: Ronn Arias MD Urobilinogen,Ur Normal Normal NORM [facility] Comment on above: Performed By: #### U RNA, URTPRT, UMICAO, UEOS, UA #### [facility] [address] [place], [place] [phone] Tree Chipper: Ronn Arais MD Urinalysis with Reflex to Cu ltureon 01-01-2022 Bilirubin Urine MOD Abnormal NEGATIVE [facility] Color, UA Dark Yellow Abnormal Yellow [facility] Glucose, Ur Negative NEGATIVE [facility] Interpretation and review of laboratory results Abnormal [facility] Ketones Ql (U) Negative NEGATIVE [facility] Leukocyte esterase Test strip Ql (U) Negative NEGATIVE [facility] Nitrite, Urine Negative NEGATIVE [facility] pH, UA 5.0 5 - 8 [facility] Protein, UA 1+ Abnormal NEGATIVE [facility] Specific [place], UA 1.013 1.005 - 1.03 [facility] Turbidity UA Turbid Abnormal Clear [facility] Urine Hgb SMALL Abnormal NEGATIVE [facility] Urobilinogen, Urine Normal Normal [facility] Urinalysis, Microon 01-02-20 22 Casts UA 20 TO 50 [facility] Casts UA COARSELY GRANULAR [facility] Epithelial Cells UA 5 TO 10 [facility] RBC, UA 10 TO 20 [facility] WBC, UA 10 TO 20 [facility] Urinalysis,Microon 2 Casts 20 TO 50 Normal 0-2 [facility] Comment on above: Result Comment: COAR ASHLEY LEDESMA Performed By: #### U RNA, URTPRT, UMICAO, UEOS, UA #### [facility] [address] [place] [address] Tree Chipper: Ronn Arias MD Epithelial cells LM Ql (Urine sed) 5 TO 10 Normal 0-5 [facility] Comment on above: Performed By: #### U RNA, URTPRT, UMICAO, UEOS, UA #### [facility] [address] [place] [address] Tree Chipper: Ronn Arias MD Urine RBC's 10 TO 20 Normal 0-2 [facility] Comment on above: Performed By: #### U RNA, URTPRT, UMICAO, UEOS, UA #### [facility] [address] [place] [address] Tree Chipper: Ronn Arias MD Urine WBC's 10 TO 20 Normal 0-5 [facility] Comment on above: Performed By: #### U RNA, URTPRT, UMICAO, UEOS, UA #### [facility] [address] [place] [address] Tree Chipper: Ronn Arias MD CBC AUTO DIFFon 12-31-2021 BASO # 0.1 103/ul Normal 0.0-0.1 [facility] Comment on above: Performed By: #### H STROPN #### [facility] [address] [place] [address] [address] Kulwant Brennan Basophils/100 WBC (Bld) 0.2 % Normal 0.2-2.0 [facility] Comment on above: Performed By: #### H STROPN #### [facility] [address] [address] [address] Kulwant Brennan EO # 0.0 103/ul Normal 0.0-0.7 [facility] Comment on above: Performed By: #### H STROPN #### [facility] [address] [address] [address] Kulwant Brennan Eosinophils/100 WBC (Bld) 0.0 % Critically low 0.9-7.0 [facility] Comment on above: Performed By: #### H STROPN #### [facility] [address] [place] [address] [address] Kulwant Brennan Erythrocyte distribution width (RBC) [Ratio] 14.4 % Normal 11.0-15.0 [facility] Comment on above: Performed By: #### H STROPN #### [facility] [address] [place] [address] Dr. Kulwant Brennan Hematocrit (Bld) [Volume fraction] 37.9 % Critically low 42.0-54.0 [facility] Comment on above: Performed By: #### H STROPN #### [facility] [address] [place] [address] Dr. Kulwant Brennan Hemoglobin (Bld) [Mass/Vol] 12.2 g/dL Critically low 14.0-18.0 [facility] Comment on above: Performed By: #### H STROPN #### [facility] [address] [place] [address] Dr. Kulwant Brennan IG # 0.16 10e3/ul Critically high 0.00-0.03 [facility] Comment on above: Performed By: #### H STROPN #### [facility] [address] [place] [address] Dr. Kulwant Brennan IG % 0.6 % Critically high 0.0-0.5 [facility] Comment on above: Performed By: #### H STROPN #### [facility] [address] [place] [address] Dr. Kulwant Brennan LYMPH # 0.7 103/ul Critically low 1.2-3.8 [facility] Comment on above: Performed By: #### H STROPN #### [facility] [address] [place] [address] Dr. Kulwant Brennan Lymphocytes/100 WBC (Bld) 2.9 % Critically low 20.5-60.0 [facility] Comment on above: Performed By: #### H STROPN #### [facility] [address] [place] [address] Dr. Kulwant Brennan MANUAL DIFF REQ NO Normal [facility] Comment on above: Performed By: #### H STROPN #### [facility] [address] [address] [address] Kulwant Brennan MCH (RBC) [Entitic mass] 27.7 pg Normal 25.9-34.0 [facility] Comment on above: Performed By: #### H STROPN #### [facility] [address] [place] [address] Dr. Kulwant Brennan MCHC (RBC) [Mass/Vol] 32.2 g/dL Normal 29.9-35.2 [facility] Comment on above: Performed By: #### H STROPN #### [facility] [address] [place] [address] Dr. Kulwant Brennan MCV (RBC) [Entitic vol] 86.1 fL Normal 80.0-94.0 [facility] Comment on above: Performed By: #### H STROPN #### [facility] [address] [place] [address] Dr. Kulwant Brennan MONO # 1.6 103/ul Critically high 0.3-0.[address] [facility] Comment on above: Performed By: #### H STROPN #### [facility] [address] [place] [address] Dr. Kulwant Brennan Monocytes/100 WBC (Bld) 6.4 % Normal 1.7-12.0 [facility] Comment on above: Performed By: #### H STROPN #### [facility] [address] [place] [address] Dr. Kulwant Brennan NEUT # 22.8 103/ul Critically high 1.4-6.5 [facility] Comment on above: Performed By: #### H STROPN #### [facility] [address] [place] [address] Dr. Kulwant Brennan Neutrophils/100 WBC (Bld) 89.9 % Critically high 43.0-75.0 [facility] Comment on above: Performed By: #### H STROPN #### [facility] [address] [place] [address] Dr. Kulwant Brennan Platelet mean volume (Bld) [Entitic vol] 10.0 fL Normal 9.5-13.5 [facility] Comment on above: Performed By: #### H STROPN #### [facility] [address] [place] [address] [address] Kulwant Brennan PLT 211 103/ul Normal 150-450 [facility] Comment on above: Performed By: #### H STROPN #### [facility] [address] [address] [address] Kulwant Brennan RBC 4.40 106/ul Critically low 4.70-6.10 [facility] Comment on above: Performed By: #### H STROPN #### [facility] [address] [place] [address] [address] Kulwant Brennan WBC 25.3 103/ul Critically high 4.0-11.0 [facility] Comment on above: Performed By: #### H STROPN #### [facility] [address] [place] [address] [address] Kulwant Brennan CULTURE BLOODon 12-31-2021 Microscopic examination of blood, culture Culture Observations: NO GROWTH AT 5 DAYS. Normal [facility] Comment on above: Performed By: #### B LDCX2 ####[facility] [address] [id number]. Kulwant Brennan Performed By: #### B LDCX1 ####[facility] [address] [id number]. Kulwant Brennan CULTURE URINEon 12-31-2021 CULTURE URINE Culture Observations : MODERATE GROWTH OF MIXED SKIN MITA. NO POTENTIAL PATHOGENS SEEN. Normal [facility] Comment on above: Performed By: #### U RCX ####[facility] [address] [id number]. Kulwant Brennan [facility]21 SARS-CoV-2 (COVID-19) RNA MIKE+probe Ql (Unsp spec) Not detected Normal NOT DETECTED [facility] Comment on above: Result Comment: When [...] for this test is supported by the Literary Agent of Health and Human Service's declaration that [...] be used). Performed By: #### C FLETCHER ####[facility] [address] [place], [place] [address]Dr. Kulwant Brennan ER URINE PROFILEon 2 Bilirubin Ql (U) MODERATE Abnormal NEGATIVE [facility] Comment on above: Performed By: #### ANA LAURA VARELA ####[facility] [address] [place], [place] [address]Dr. Kulwant Brennan Clarity (U) CLEAR Normal CLEAR [facility] Comment on above: Performed By: #### ANA LAURA VARELA ####[facility] [address] [place], [place] [address]Dr. Kulwant Brennan Color (U) DK. ORANGE Abnormal YELLOW [facility] Comment on above: Performed By: #### ANA LAURA VARELA ####[facility] [address] [place], [place] [address]Dr. Kulwant Brennan ERUAHD A micrscopic examina tion will be performed if indicated. Normal [facility] Comment on above: Performed By: #### ANA LAURA VARELA ####[facility] [address] [place], [place] [address]Dr. Kulwant Brennan Glucose Ql (U) Negative Normal NEGATIVE [facility] Comment on above: Performed By: #### ANA LAURA VARELA ####[facility] [address] [place], [place] [address]Dr. Kulwant Brennan Hemoglobin Ql (U) SMALL Abnormal NEGATIVE [facility] Comment on above: Performed By: #### SERGEY VARELAICRO ####[facility] [address] [address]Dr. Kulwant Brennan Ketones Ql (U) Negative Normal NEGATIVE [facility] Comment on above: Performed By: #### Lilly JHAVERI UMICRO ####[facility] [address] [address]Dr. Kulwant Brennan LEUKOCYTES Negative Normal NEGATIVE [facility] Comment on above: Performed By: #### Lilly JHAVERI UMICRO ####[facility] [address] [place], [place] [address]Dr. Kulwant Brennan Nitrite Ql (U) Positive Abnormal NEGATIVE [facility] Comment on above: Performed By: #### Lilly JHAVERI UMICRO ####[facility] [address] [place], [place] [address]Dr. Kulwant Brennan pH (U) 5.5 [pH] Normal 5-9 [facility] Comment on above: Performed By: #### Lilly JHAVERI ICRO ####[facility] [address] [place], [place] [address]Dr. Kulwant Brennan Protein (U) [Mass/Vol] 100 mg/dL Abnormal NEGATIVE/ TRACE [facility] Comment on above: Performed By: #### Lilly JHAVERI UMICRO ####[facility] [address] [place], [place] [address]Dr. Kulwant Brennan SPEC GRAVITY 1.020 Normal 1.005-<=1. 025 [facility] Comment on above: Performed By: #### Lilly JHAVERI UMICRO ####[facility] [address] [place], [place] [address]Dr. Kulwant Brennan UR MICRO IND INDICATED Normal [facility] Comment on above: Performed By: #### Lilly JHAVERI UMICRO ####[facility] [address] [place] [address]Dr. Kulwant Brennan Urobilinogen Qn (U) 1.0 {Luis'U}/dL Normal 0.2 - 1. 0 [facility] Comment on above: Performed By: #### E ANA LAURA JHAVERI ####[facility] [address] [address]Dr. Kulwant Brennan LACTATE/LACTIC ACIDon 2021 Lactate [Moles/Vol] 1.6 mmol/L Normal 0.4-1.[address] [facility] Comment on above: Performed By: #### L ACT #### [facility] [address] [address] [address] uKlwant Brennan Lactate [Moles/Vol] 2.4 mmol/L Critically high 0.4-1.9 [facility] Comment on above: Performed By: #### L ACT ####[facility] [address] [place] [address]Dr. Kulwant Brennan LIPASEon 12-31-2021 Lipase [Catalytic activity/Vol] 6610.0 U/L Critically high 73.0-393.0 [facility] Comment on above: Performed By: #### L ACT #### [facility] [address] [place] [address] Dr. Kulwant Brennan PROF 14(COMP METB)on 022 Albumin [Mass/Vol] 3.3 g/dL Critically low 3.4-5.0 Th [facility] Comment on above: Performed By: #### L ACT #### [facility] [address] [place] [address] Dr. Kulwant Brennan Albumin/Globulin [Mass ratio] 0.9 {ratio} Normal [facility] Comment on above: Performed By: #### L ACT #### [facility] [address] [place] [address] Dr. Kulwant Brennan ALP [Catalytic activity/Vol] 124 U/L Critically high 46-116 [facility] Comment on above: Performed By: #### L ACT #### [facility] [address] [place] [address] Dr. Kulwant Brennan ALT [Catalytic activity/Vol] 327 U/L Critically high 16-63 [facility] Comment on above: Performed By: #### L ACT #### [facility] [address] [address] [address] Kulwant Brennan Anion gap [Moles/Vol] 15.6 mmol/L Normal [facility] Comment on above: Performed By: #### L ACT #### [facility] [address] [address] [address] Kulwant Brennan AST [Catalytic activity/Vol] 229 U/L Critically high 15-37 [facility] Comment on above: Performed By: #### L ACT #### [facility] [address] [address] [address] Kulwant Brennan Bilirubin [Mass/Vol] 6.2 mg/dL Critically high 0.2-1.0 [facility] Comment on above: Performed By: #### L ACT #### [facility] [address] [address] [address] Kulwant Brennan Calcium [Mass/Vol] 7.2 mg/dL Critically low 8.5-10.1 Th [facility] Comment on above: Performed By: #### L ACT #### [facility] [address] [address] [address] Kulwant Brennan Chloride [Moles/Vol] 102 mmol/L Normal 98-107 [facility] Comment on above: Performed By: #### L ACT #### [facility] [address] [address] [address] Kulwant Brennan CO2 [Moles/Vol] 26.4 mmol/L Normal 21.0-32.0 [facility] Comment on above: Performed By: #### L ACT #### [facility] [address] [address] [address] Kulwant Brennan Creatinine [Mass/Vol] 3.33 mg/dL Critically high 0.70-1.30 [facility] Comment on above: Performed By: #### L ACT #### [facility] [address] [address] [address] Kulwant Brennan EGFR-AF SRI LANKAN 22 mL/min/1.73m2 Critically low >=60 [facility] Comment on above: Performed By: #### L ACT #### [facility] [address] [address] [address] Kulwant Brennan EGFR-NON AF SRI LANKAN 19 mL/min/1.73m2 Critically low >=60 [facility] Comment on above: Performed By: #### L ACT #### [facility] [address] [address] [address] Kulwant Brennan Globulin (S) [Mass/Vol] 3.8 g/dL Normal [facility] Comment on above: Performed By: #### L ACT #### [facility] [address] [address] [address] Kulwant Brennan Glucose [Mass/Vol] 245 mg/dL Critically high 74-106 T [facility] Comment on above: Performed By: #### L ACT #### [facility] [address] [address] [address] Kulwant Brennan Potassium [Moles/Vol] 5.0 mmol/L Normal 3.5-5.1 [facility] Comment on above: Performed By: #### L ACT #### [facility] [address] [address] [address] Kulwant Brennan Protein [Mass/Vol] 7.1 g/dL Normal 6.4-8.2 [facility] Comment on above: Performed By: #### L ACT #### [facility] [address] [address] [address] Kulwant Brennan Sodium [Moles/Vol] 139 mmol/L Normal 136-145 [facility] Comment on above: Performed By: #### L ACT #### [facility] [address] [address] [address] Kulwant Brennan Urea nitrogen [Mass/Vol] 51.0 mg/dL Critically high 7.0-18.0 [facility] Comment on above: Performed By: #### L ACT #### [facility] [address] [address] [address] Kulwant Brennan Urea nitrogen/Creatinine [Mass ratio] 15.3 mg/mg Normal [facility] Comment on above: Performed By: #### L ACT #### [facility] [address] [address] [address] Kulwant Brennan PROTIMEon 12-31-2021 INR Coag (PPP) [Relative time] 1.17 {INR} Normal [facility] Comment on above: Performed By: #### H STROPN #### [facility] [address] [address] [address] Kulwant Brennan INR GUIDELINES SEE BELOW Normal [facility] Comment on above: Result Comment: HAYDEE RED INR: 2.0 - 3.0 CONDITIONS NOT LISTED BELOW 2.5 - 3.5 FOR PROSTHETIC HEART VALVE REPLACEMENT 2.5 - 3.5 RECURRENT THROMBOSIS Performed By: #### H STROPN #### [facility] [address] [address] [address] Kulwant Brennan PT Coag (PPP) [Time] 12.5 s Critically high 9.0-11.6 [facility] Comment on above: Performed By: #### H STROPN #### [facility] [address] [address] [address] Kulwant Brennan PTTon 12-31-2021 aPTT Coag (Bld) [Time] 33.3 s Normal 22.3-36.2 [facility] Comment on above: Performed By: #### P TT, PT ####[facility] [address] [address]Dr. Kulwant Brennan TROPONIN, HIGH SENSITIVITYon 12-31-2021 HSTROP 6.0 pg/mL Normal 4.0-76.1 [facility] Comment on above: Result Comment: CUT- OFF POINTS HAVE BEEN ESTABLISHED BASED ON THE FOURTH UNIVERSAL DEFINITIONS OF MYOCARDIAL INFARCTION. THE UPPER REFERENCE LIMIT (URL) OF TROPONIN, DEFINED THE 99TH PERCENTILE OF cTnI DISTRIBUTION IN A REFERENCE POPULATION, HAS BEEN CONFIRMED THE DECISION THRESHOLD FOR ND DIAGNOSIS. Performed By: #### L ACT #### [facility] [address] [address] [address] Kulwant Brennan URINE MICROSCOPIC ONLYon BACTERIA SMALL Abnormal NONE SEEN [facility] Comment on above: Performed By: #### E RUR, UMICRO ####[facility] [address] [place] [id number]. Kulwant Brennan Bacteria identified Cx Nom (U) INDICATED Normal [facility] Comment on above: Performed By: #### Lilly JHAVERI UMICRO ####[facility] [address] [place] [address]Dr. Kulwant Brennan CAST SEEN Abnormal NONE SEEN [facility] Comment on above: Performed By: #### Lilly JHAVERI UMICRO ####[facility] [address] [place] [address]Dr. Kulwant Brennan COARSE GRANULAR CAST FEW Normal [facility] Comment on above: Performed By: #### Lilly JHAVERI UMICRO ####[facility] [address] [place] [address]Dr. Kulwant Brennan Crystals LM Nom (Urine sed) NONE SEEN Normal NONE SEEN [facility] Comment on above: Performed By: #### Lilly JHAVERI UMICRO ####[facility] [address] [place], [place] [address]Dr. Kulwant Brennan Epithelial cells LM Ql (Urine sed) FEW Abnormal NONE SEEN /RARE [facility] Comment on above: Performed By: #### Lilly JHAVERI UMICRO ####[facility] [address] [place], [place] [address]Dr. Kulwant Brennan MUCOUS TRACE Abnormal NONE SEEN [facility] Comment on above: Performed By: #### Lilly JHAVERI UMICRO ####[facility] [address] [place], [place] [address]Dr. Kulwant Brennan RBC 5-10 Abnormal 0-2 [facility] Comment on above: Performed By: #### Lilly JHAVERI UMICRO ####[facility] [address] [place] [address]Dr. Kulwant Brennan WBC 0-2 Abnormal NONE SEEN [facility] Comment on above: Performed By: #### Lilly JHAVERI UMICRO ####[facility] [address] [place], [place] [address]Dr. Kulwant Brennan US SINGLE QUAD RT UPPERon [...] DAVIE NARANJO Date: 2021-12-31 19:27 Normal [facility] AMYLASEon 12-30-2021 Amylase [Catalytic activity/Vol] 47 U/L Normal 25-115 [facility] Comment on above: Performed By: #### H STROPN #### [facility] [address] [place] [address] Dr. Kulwant Brennan CBC AUTO DIFFon 12-30-2021 BASO # 0.0 103/ul Normal 0.0-0.1 [facility] Comment on above: Performed By: #### L ACT #### [facility] [address] [address] [address] Kulwant Brennan Basophils/100 WBC (Bld) 0.5 % Normal 0.2-2.0 [facility] Comment on above: Performed By: #### L ACT #### [facility] [address] [place], [place] [address] Dr. Kulwant Brennan EO # 0.3 103/ul Normal 0.0-0.7 [facility] Comment on above: Performed By: #### L ACT #### [facility] [address] [place] [address] Dr. Kulwant Brennan Eosinophils/100 WBC (Bld) 3.3 % Normal 0.9-7.0 [facility] Comment on above: Performed By: #### L ACT #### [facility] [address] [place] [address] Dr. Kulwant Brennan Erythrocyte distribution width (RBC) [Ratio] 14.1 % Normal 11.0-15.0 [facility] Comment on above: Performed By: #### L ACT #### [facility] [address] [place] [address] Dr. Kulwant Brennan Hematocrit (Bld) [Volume fraction] 38.8 % Critically low 42.0-54.0 [facility] Comment on above: Performed By: #### L ACT #### [facility] [address] [place] [address] Dr. Kulwant Brennan Hemoglobin (Bld) [Mass/Vol] 12.4 g/dL Critically low 14.0-18.0 [facility] Comment on above: Performed By: #### L ACT #### [facility] [address] [place] [address] Dr. Kulwant Brennan IG # 0.04 10e3/ul Critically high 0.00-0.03 [facility] Comment on above: Performed By: #### L ACT #### [facility] [address] [place] [address] Dr. Kulwant Brennan IG % 0.5 % Normal 0.0-0.5 [facility] Comment on above: Performed By: #### L ACT #### [facility] [address] [place] [address] Dr. Kulwant Brennan LYMPH # 1.9 103/ul Normal 1.2-3.8 [facility] Comment on above: Performed By: #### L ACT #### [facility] [address] [place] [address] Dr. Kulwant Brennan Lymphocytes/100 WBC (Bld) 23.9 % Normal 20.5-60.0 [facility] Comment on above: Performed By: #### L ACT #### [facility] [address] [place] [address] Dr. Kulwant Brennan MANUAL DIFF REQ NO Normal [facility] Comment on above: Performed By: #### L ACT #### [facility] [address] [place] [address] Dr. Kulwant Brennan MCH (RBC) [Entitic mass] 27.5 pg Normal 25.9-34.0 [facility] Comment on above: Performed By: #### L ACT #### [facility] [address] [place] [address] Dr. Kulwant Brennan MCHC (RBC) [Mass/Vol] 32.0 g/dL Normal 29.9-35.2 [facility] Comment on above: Performed By: #### L ACT #### [facility] [address] [place] [address] Dr. Kulwant Brennan MCV (RBC) [Entitic vol] 86.0 fL Normal 80.0-94.0 [facility] Comment on above: Performed By: #### L ACT #### [facility] [address] [place] [address] Dr. Kulwant Brennan MONO # 0.9 103/ul Critically high 0.3-0.8 [facility] Comment on above: Performed By: #### L ACT #### [facility] [address] [place] [address] Dr. Kulwant Brennan Monocytes/100 WBC (Bld) 11.8 % Normal 1.7-12.0 [facility] Comment on above: Performed By: #### L ACT #### [facility] [address] [place] [address] Dr. Kulwant Brennan NEUT # 4.7 103/ul Normal 1.4-6.5 [facility] Comment on above: Performed By: #### L ACT #### [facility] [address] [place] [address] Dr. Kulwant Brennan Neutrophils/100 WBC (Bld) 60.0 % Normal 43.0-75.0 [facility] Comment on above: Performed By: #### L ACT #### [facility] [address] [address] [address] Kulwant Brennan Platelet mean volume (Bld) [Entitic vol] 10.0 fL Normal 9.5-13.5 [facility] Comment on above: Performed By: #### L ACT #### [facility] [address] [place] [address] [address] Kulwant Brennan PLT 222 103/ul Normal 150-450 [facility] Comment on above: Performed By: #### L ACT #### [facility] [address] [address] [address] Kulwant Brennan RBC 4.51 106/ul Critically low 4.70-6.10 [facility] Comment on above: Performed By: #### L ACT #### [facility] [address] [address] [address] Kulwant Brennan WBC 7.9 103/ul Normal 4.0-11.0 [facility] Comment on above: Performed By: #### L ACT #### [facility] [address] [address] [address] ABD/PELV W CONon 12-31-19 CT ABD/PELV W CON EXAMINATION: CT ABD/ PELV W CON HISTORY: UNSPECIFIED ABDOMINAL PAIN COMPARISON: 12/29/2021. TECHNIQUE: CT of abdomen/pelvis with intravenous contrast. Dose reduction techniques were achieved by using automated exposure control and/or adjustment of mA and/or kV according to patient size and/or use of iterative reconstruction technique. 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 Comment on above: Performed By: #### L ACT #### [facility] [address] [place] [address] Dr. Kulwant Brennan Clarity (U) CLEAR Normal CLEAR [facility] Comment on above: Performed By: #### L ACT #### [facility] [address] [place] [address] Dr. Kulwant Brennan Color (U) LT. YELLOW Normal YELLOW [facility] Comment on above: Performed By: #### L ACT #### [facility] [address] [address] [address] Kulwant Brennan ERUPHILIP A micrscopic examina tion will be performed if indicated. Normal [facility] Comment on above: Performed By: #### L ACT #### [facility] [address] [place] [address] Dr. Kulwant Brennan Glucose Ql (U) Negative Normal NEGATIVE [facility] Comment on above: Performed By: #### L ACT #### [facility] [address] [place] [address] Dr. Kulwant Brennan Hemoglobin Ql (U) Negative Normal NEGATIVE [facility] Comment on above: Performed By: #### L ACT #### [facility] [address] [address] [address] Kulwant Brennan Ketones Ql (U) Negative Normal NEGATIVE [facility] Comment on above: Performed By: #### L ACT #### [facility] [address] [address] [address] Kulwant Brennan LEUKOCYTES Negative Normal NEGATIVE [facility] Comment on above: Performed By: #### L ACT #### [facility] [address] [place] [address] Dr. Kulwant Brennan Nitrite Ql (U) Negative Normal NEGATIVE [facility] Comment on above: Performed By: #### L ACT #### [facility] [address] [place] [address] Dr. Kulwant Brennan pH (U) 5.5 [pH] Normal 5-9 [facility] Comment on above: Performed By: #### L ACT #### [facility] [address] [place] [address] Dr. Kulwant Brennan SPEC GRAVITY >=1.030 Abnormal 1.005-<=1. 025 [facility] Comment on above: Performed By: #### L ACT #### [facility] [address] [place] [address] Dr. Kulwant Brennan UA PROTEIN Negative Normal NEGATIVE/ TRACE [facility] Comment on above: Performed By: #### L ACT #### [facility] [address] [place] [address] Dr. Kulwant Brennan UR MICRO IND NOT INDICATED Normal [facility] Comment on above: Performed By: #### L ACT #### [facility] [address] [place] [address] Dr. Kulwant Brennan Urobilinogen Qn (U) 0.2 {Luis'U}/dL Normal 0.2 - 1. 0 [facility] Comment on above: Performed By: #### L ACT #### [facility] [address] [address] [address] Kulwant Brennan LIPASEon 12-30-2021 Lipase [Catalytic activity/Vol] 105.0 U/L Normal 73.0-393.0 [facility] Comment on above: Performed By: #### H STROPN #### [facility] [address] [address] [address] Kulwant Brennan LIVER PROFILEon 12-30-2021 Albumin [Mass/Vol] 3.8 g/dL Normal 3.4-5.0 [facility] Comment on above: Performed By: #### H STROPN #### [facility] [address] [address] [address] Kulwant Brennan Albumin/Globulin [Mass ratio] 1.0 {ratio} Normal [facility] Comment on above: Performed By: #### H STROPN #### [facility] [address] [place] [address] Dr. Kulwant Brennan ALP [Catalytic activity/Vol] 67 U/L Normal 46-116 [facility] Comment on above: Performed By: #### H STROPN #### [facility] [address] [place] [address] Dr. Kulwant Brennan ALT [Catalytic activity/Vol] 31 U/L Normal 16-63 [facility] Comment on above: Performed By: #### H STROPN #### [facility] [address] [place] [address] Dr. Kulwant Brennan AST [Catalytic activity/Vol] 21 U/L Normal 15-37 [facility] Comment on above: Performed By: #### H STROPN #### [facility] [address] [place] [address] Dr. Kulwant Brennan BILI, CONJUGATED 0.1 mg/dL Normal 0.0-0.2 [facility] Comment on above: Performed By: #### H STROPN #### [facility] [address] [place] [address] Dr. Kulwant Brennan Bilirubin [Mass/Vol] 0.5 mg/dL Normal 0.2-1.0 [facility] Comment on above: Performed By: #### H STROPN #### [facility] [address] [address] [address] Kulwant Brennan Globulin (S) [Mass/Vol] 3.7 g/dL Normal [facility] Comment on above: Performed By: #### H STROPN #### [facility] [address] [address] [address] Kulwant Brennan Protein [Mass/Vol] 7.5 g/dL Normal 6.4-8.2 [facility] Comment on above: Performed By: #### H STROPN #### [facility] [address] [address] [address] Kulwant Brennan PROF CHEM 8 (BAS METB)on Anion gap [Moles/Vol] 14.5 mmol/L Normal [facility] Comment on above: Performed By: #### H STROPN #### [facility] [address] [place] [address] Dr. Kulwant Brennan Calcium [Mass/Vol] 7.5 mg/dL Critically low 8.5-10.1 Th [facility] Comment on above: Performed By: #### H STROPN #### [facility] [address] [place] [address] Dr. Kulwant Brennan Chloride [Moles/Vol] 104 mmol/L Normal 98-107 [facility] Comment on above: Performed By: #### H STROPN #### [facility] [address] [address] [address] Kulwant Brennan CO2 [Moles/Vol] 26.8 mmol/L Normal 21.0-32.0 [facility] Comment on above: Performed By: #### H STROPN #### [facility] [address] [address] [address] Kulwant Brennan Creatinine [Mass/Vol] 1.31 mg/dL Critically high 0.70-1.30 [facility] Comment on above: Performed By: #### H STROPN #### [facility] [address] [place] [address] Dr. Kulwant Brennan EGFR-AF SRI LANKAN >60 Normal >=60 [facility] Comment on above: Performed By: #### H STROPN #### [facility] [address] [address] [address] Kulwant Brennan EGFR-NON AF SRI LANKAN 54 mL/min/1.73m2 Critically low >=60 [facility] Comment on above: Performed By: #### H STROPN #### [facility] [address] [address] [address] Kulwant Brennan Glucose [Mass/Vol] 97 mg/dL Normal 74-106 [facility] Comment on above: Performed By: #### H STROPN #### [facility] [address] [address] [address] Kulwant Brennan Potassium [Moles/Vol] 4.3 mmol/L Normal 3.5-5.1 [facility] Comment on above: Performed By: #### H STROPN #### [facility] [address] [place] [address] [address] Kulwant Brennan Sodium [Moles/Vol] 141 mmol/L Normal 136-145 [facility] Comment on above: Performed By: #### H STROPN #### [facility] [address] [address] [address] Kulwant Brennan Urea nitrogen [Mass/Vol] 25.0 mg/dL Critically high 7.0-18.0 [facility] Comment on above: Performed By: #### H STROPN #### [facility] [address] [address] [address] Kulwant Brennan Urea nitrogen/Creatinine [Mass ratio] 19.1 mg/mg Normal [facility] Comment on above: Performed By: #### H STROPN #### [facility] [address] [address] [address] Kulwant Brennan CBC AUTO DIFFon 12-29-2021 BASO # 0.0 103/ul Normal 0.0-0.1 [facility] Comment on above: Performed By: #### H STROPN #### [facility] [address] [address] [address] Kulwant Brennan Basophils/100 WBC (Bld) 0.5 % Normal 0.2-2.0 [facility] Comment on above: Performed By: #### H STROPN #### [facility] [address] [place] [address] Dr. Kulwant Brennan EO # 0.3 103/ul Normal 0.0-0.7 [facility] Comment on above: Performed By: #### H STROPN #### [facility] [address] [place] [address] Dr. Kulwant Brennan Eosinophils/100 WBC (Bld) 3.6 % Normal 0.9-7.0 [facility] Comment on above: Performed By: #### H STROPN #### [facility] [address] [place] [address] Dr. Kulwant Brennan Erythrocyte distribution width (RBC) [Ratio] 14.1 % Normal 11.0-15.0 [facility] Comment on above: Performed By: #### H STROPN #### [facility] [address] [place] [address] Dr. Kulwant Brennan Hematocrit (Bld) [Volume fraction] 39.0 % Critically low 42.0-54.0 [facility] Comment on above: Performed By: #### H STROPN #### [facility] [address] [place] [address] Dr. Kulwant Brennan Hemoglobin (Bld) [Mass/Vol] 12.5 g/dL Critically low 14.0-18.0 [facility] Comment on above: Performed By: #### H STROPN #### [facility] [address] [place] [address] Dr. Kulwant Brennan IG # 0.03 10e3/ul Normal 0.00-0.03 [facility] Comment on above: Performed By: #### H STROPN #### [facility] [address] [place] [address] Dr. Kulwant Brennan IG % 0.4 % Normal 0.0-0.5 [facility] Comment on above: Performed By: #### H STROPN #### [facility] [address] [place] [address] Dr. Kulwant Brennan LYMPH # 2.0 103/ul Normal 1.2-3.8 [facility] Comment on above: Performed By: #### H STROPN #### [facility] [address] [address] [address] Kulwant Brennan Lymphocytes/100 WBC (Bld) 28.0 % Normal 20.5-60.0 [facility] Comment on above: Performed By: #### H STROPN #### [facility] [address] [address] [address] Kulwant Brennan MANUAL DIFF REQ NO Normal [facility] Comment on above: Performed By: #### H STROPN #### [facility] [address] [place] [address] Dr. Kulwant Brennan MCH (RBC) [Entitic mass] 27.5 pg Normal 25.9-34.0 [facility] Comment on above: Performed By: #### H STROPN #### [facility] [address] [place] [address] Dr. Kulwant Brennan MCHC (RBC) [Mass/Vol] 32.1 g/dL Normal 29.9-35.2 [facility] Comment on above: Performed By: #### H STROPN #### [facility] [address] [place] [address] Dr. Kuwlant Brennan MCV (RBC) [Entitic vol] 85.7 fL Normal 80.0-94.0 [facility] Comment on above: Performed By: #### H STROPN #### [facility] [address] [place] [address] Dr. Kulwant Brennan MONO # 1.0 103/ul Critically high 0.3-0.8 [facility] Comment on above: Performed By: #### H STROPN #### [facility] [address] [address] [address] Kulwant Brennan Monocytes/100 WBC (Bld) 14.0 % Critically high 1.7-12.0 [facility] Comment on above: Performed By: #### H STROPN #### [facility] [address] [address] [address] Kulwant Brennan NEUT # 3.9 103/ul Normal 1.4-6.5 [facility] Comment on above: Performed By: #### H STROPN #### [facility] [address] [address] [address] Kulwant Brennan Neutrophils/100 WBC (Bld) 53.5 % Normal 43.0-75.0 [facility] Comment on above: Performed By: #### H STROPN #### [facility] [address] [address] [address] Kulwant Brennan Platelet mean volume (Bld) [Entitic vol] 10.1 fL Normal 9.5-13.5 [facility] Comment on above: Performed By: #### H STROPN #### [facility] [address] [address] [address] Kulwant Brennan PLT 237 103/ul Normal 150-450 [facility] Comment on above: Performed By: #### H STROPN #### [facility] [address] [address] [address] Kulwant Brennan RBC 4.55 106/ul Critically low 4.70-6.10 [facility] Comment on above: Performed By: #### H STROPN #### [facility] [address] [address] [address] Kulwant Brennan WBC 7.3 103/ul Normal 4.0-11.0 [facility] Comment on above: Performed By: #### H STROPN #### [facility] [address] [address] ABD/PELVIS WO CONon [...] AMOS RAMIREZ Date: 2021-12-29 00:59 Normal [facility] PROF 14(COMP METB)on 022 Albumin [Mass/Vol] 4.0 g/dL Normal 3.4-5.0 [facility] Comment on above: Performed By: #### H STROPN #### [facility] [address] [place], [place] [address] Dr. Kulwant Brennan Albumin/Globulin [Mass ratio] 1.1 {ratio} Normal [facility] Comment on above: Performed By: #### H STROPN #### [facility] [address] [place], [place] [address] Dr. Kulwant Brennan ALP [Catalytic activity/Vol] 68 U/L Normal 46-116 [facility] Comment on above: Performed By: #### H STROPN #### [facility] [address] [address] [address] Kulwant Brennan ALT [Catalytic activity/Vol] 27 U/L Normal 16-63 [facility] Comment on above: Performed By: #### H STROPN #### [facility] [address] [address] [address] Kulwant Brennan Anion gap [Moles/Vol] 12.8 mmol/L Normal [facility] Comment on above: Performed By: #### H STROPN #### [facility] [address] [address] [address] Kulwant Brennan AST [Catalytic activity/Vol] 16 U/L Normal 15-37 [facility] Comment on above: Performed By: #### H STROPN #### [facility] [address] [address] [address] Kulwant Brennan Bilirubin [Mass/Vol] 0.5 mg/dL Normal 0.2-1.0 [facility] Comment on above: Performed By: #### H STROPN #### [facility] [address] [address] [address] Kulwant Brennan Calcium [Mass/Vol] 7.4 mg/dL Critically low 8.5-10.1 [facility] Comment on above: Performed By: #### H STROPN #### [facility] [address] [address] [address] Kulwant Brennan Chloride [Moles/Vol] 102 mmol/L Normal 98-107 [facility] Comment on above: Performed By: #### H STROPN #### [facility] [address] [address] [address] Kulwant Brennan CO2 [Moles/Vol] 27.1 mmol/L Normal 21.0-32.0 [facility] Comment on above: Performed By: #### H STROPN #### [facility] [address] [place] [address] [address] Kulwant Brennan Creatinine [Mass/Vol] 1.42 mg/dL Critically high 0.70-1.30 [facility] Comment on above: Performed By: #### H STROPN #### [facility] [address] [address] [address] Kulwant Brennan EGFR-AF SRI LANKAN 60 mL/min/1.73m2 Normal >=60 [facility] Comment on above: Performed By: #### H STROPN #### [facility] [address] [address] [address] Kulwant Brennan EGFR-NON AF SRI LANKAN 50 mL/min/1.73m2 Critically low >=60 [facility] Comment on above: Performed By: #### H STROPN #### [facility] [address] [address] [address] Kulwant Brennan Globulin (S) [Mass/Vol] 3.5 g/dL Normal [facility] Comment on above: Performed By: #### H STROPN #### [facility] [address] [address] [address] Kulwant Brennan Glucose [Mass/Vol] 139 mg/dL Critically high 74-106 [facility] Comment on above: Performed By: #### H STROPN #### [facility] [address] [address] [address] Kulwant Brennan Potassium [Moles/Vol] 3.9 mmol/L Normal 3.5-5.1 [facility] Comment on above: Performed By: #### H STROPN #### [facility] [address] [address] [address] Kulwant Brennan Protein [Mass/Vol] 7.5 g/dL Normal 6.4-8.2 [facility] Comment on above: Performed By: #### H STROPN #### [facility] [address] [address] [address] Kulwant Brennan Sodium [Moles/Vol] 138 mmol/L Normal 136-145 [facility] Comment on above: Performed By: #### H STROPN #### [facility] [address] [address] [address] Kulwant Brennan Urea nitrogen [Mass/Vol] 27.0 mg/dL Critically high 7.0-18.0 [facility] Comment on above: Performed By: #### H STROPN #### [facility] [address] [place], [place] [address] Dr. Kulwant Brennan Urea nitrogen/Creatinine [Mass ratio] 19.0 mg/mg Normal [facility] Comment on above: Performed By: #### H STROPN #### [facility] [address] [place], [place] [address] Dr. Kulwant Brennan APTTon 12-13-2021 aPTT Coag (Bld) [Time] 32.8 s Normal 25.0-35.0 [facility] Comment on above: Order Comment: No: [...] THIS PURPOSE. Performed By: #### 5 610, 93043 #### [facility] [address] CBC COMPLETE BLOOD COUNTon 0 12-13-2021 Erythrocyte distribution width (RBC) [Ratio] 14.0 % Normal 11.5-15.0 [facility] Comment on above: Order Comment: No: D o not add to previous draw Performed By: #### 5 610, 54732 #### [facility] [address] Hematocrit (Bld) [Volume fraction] 36.7 % Low 39.0-50.0 [facility] Comment on above: Order Comment: No: D o not add to previous draw Performed By: #### 5 610, 45045 #### [facility] [address] [place] [address], [facility] Hemoglobin (Bld) [Mass/Vol] 12.0 g/dL Low 13.0-17.0 [facility] Comment on above: Order Comment: No: D o not add to previous draw Performed By: #### 5 610, 32975 #### [facility] [address] [place] [address], [facility] MCH (RBC) [Entitic mass] 27.5 pg Normal 27.0-33.0 [facility] Comment on above: Order Comment: No: D o not add to previous draw Performed By: #### 5 6100, 83375 #### [facility] [address] [place] [address], [facility] MCHC (RBC) [Mass/Vol] 32.7 g/dL Normal 32.0-35.0 [facility] Comment on above: Order Comment: No: D o not add to previous draw Performed By: #### 5 6100, 46508 #### [facility] [address] [facility] [place] [address], [facility] MCV (RBC) [Entitic vol] 84.0 fL Normal 82.0-98.0 [facility] Comment on above: Order Comment: No: D o not add to previous draw Performed By: #### 5 6100, 34407 #### [facility] [address] [facility] [address], [facility] Nucleated RBC/100 WBC (Bld) [Ratio] 0 % Normal 0-0 [facility] Comment on above: Order Comment: No: D o not add to previous draw Performed By: #### 5 6100, 48110 #### [facility] [address] [facility] [address], [facility] PLAT CNT 166 10*3/uL Normal 150-400 [facility] Comment on above: Order Comment: No: D o not add to previous draw Performed By: #### 5 6100, 87984 #### [facility] [address] [facility] [address], [facility] RBC (Bld) [#/Vol] 4.37 10*6/uL Normal 4.20-5.70 [facility] Comment on above: Order Comment: No: D o not add to previous draw Performed By: #### 5 6100, 93744 #### [facility] [address] [place] [address], [facility] WBC (Bld) [#/Vol] 8.41 10*3/uL Normal 4.00-10.60 [facility] Comment on above: Order Comment: No: D o not add to previous draw Performed By: #### 5 6100, 80250 #### [facility] [address] [place] [address], [place] COMP METABOLIC PANELon 12-13 Albumin [Mass/Vol] 3.8 g/dL Normal 3.5-5.7 [facility] Comment on above: Order Comment: No: D o not add to previous draw Performed By: #### 5 6100, 21399 #### [facility] [address] [place] [address], [place] ALKALINE PHOSPH 52 IU/L Normal 34-104 [facility] Comment on above: Order Comment: No: D o not add to previous draw Performed By: #### 5 6100, 27278 #### [facility] [address] [place] [address], [place] ALT [Catalytic activity/Vol] 16 U/L Normal 7-52 [facility] Comment on above: Order Comment: No: D o not add to previous draw Performed By: #### 5 6100, 88884 #### [facility] [address] [place] [address], [place] AST [Catalytic activity/Vol] 15 U/L Normal 13-39 [facility] Comment on above: Order Comment: No: D o not add to previous draw Performed By: #### 5 6100, 27418 #### [facility] [address] [place] [address], [place] Bilirubin [Mass/Vol] 0.9 mg/dL Normal 0.3-1.0 [facility] Comment on above: Order Comment: No: D o not add to previous draw Performed By: #### 5 6100, 12107 #### [facility] [address] [place] [address], [place] Calcium [Mass/Vol] 7.0 mg/dL Low 8.6-10.3 [facility] Comment on above: Order Comment: No: D o not add to previous draw Performed By: #### 5 610, 17247 #### [facility] [address] [place] [address], [place] Chloride [Moles/Vol] 106 mmol/L Normal 98-107 [facility] Comment on above: Order Comment: No: D o not add to previous draw Performed By: #### 5 6101, 17600 #### [facility] [address] [place] [address], [place] CO2 [Moles/Vol] 27 mmol/L Normal 21-31 [facility] Comment on above: Order Comment: No: D o not add to previous draw Performed By: #### 5 610, 61876 #### [facility] [address] [place] [address], [place] Creatinine [Mass/Vol] 1.16 mg/dL Normal 0.70-1.30 [facility] Comment on above: Order Comment: No: D o not add to previous draw Performed By: #### 5 6101, 96698 #### [facility] [address] [place] [address], [place] GFR/1.73 sq M.predicted among non-blacks MDRD (S/P/Bld) [Vol rate/Area] mL/min/{1.73_m2} Normal >60 [facility] Comment on above: Order Comment: No: D o not add to previous draw Result Comment: [facility]'s estimated glomerular filtration rate (eGFR) will [...] of individuals. Performed By: #### 5 610, 39463 #### [facility] [address] [place] [address], [place] Glucose [Mass/Vol] 104 mg/dL High 70-100 [facility] Comment on above: Order Comment: No: D o not add to previous draw Performed By: #### 5 610, 46188 #### [facility] [address] [place] [address], [place] Potassium [Moles/Vol] 4.3 mmol/L Normal 3.5-5.1 [facility] Comment on above: Order Comment: No: D o not add to previous draw Performed By: #### 5 6100, 94080 #### [facility] [address] [place] [address], [place] Protein [Mass/Vol] 6.2 g/dL Normal 6.0-8.3 [facility] Comment on above: Order Comment: No: D o not add to previous draw Performed By: #### 5 610, 52786 #### [facility] [address] [place] [address], [place] Sodium [Moles/Vol] 138 mmol/L Normal 136-145 [facility] Comment on above: Order Comment: No: D o not add to previous draw Performed By: #### 5 610, 02472 #### [facility] [address] [place] [address], [place] Urea nitrogen [Mass/Vol] 26 mg/dL High 7-25 [facility] Comment on above: Order Comment: No: D o not add to previous draw Performed By: #### 5 610, 66207 #### [facility] [address] [place] [address], [place] Cardiovascular Lab Reporton 12-13-2021 Cardiovascular Lab Report [facility] Patient Name: Yoli Antunez [facility] MR #: [id number] Physician: Mono Montero [facility] Service Date: 12/12/2021 Division of Birthdate: 1955 Cardiology Room #: [id number] Adult Cardiovascular Services [facility] [address] [facility]. [place] [id number] Cardiovascular Laboratory Report INDICATION: The patient is [...] the right common femoral vein using a 6-Cypriot ProGlide device. METHODS: Procedure was explained to the patient with risks and benefits, he signed informed consent. He was brought to finishing lab technician in a fasting state. The procedure was [...] the right common femoral vein and a 6-Cypriot x 11 cm sheath was placed. Preclosure in the vein was performed using a 6-Cypriot ProGlide device, a transseptal wire was advanced [...] was retracted and exchanged to the Watchman 14-Cypriot double curve access sheath. This was not [...] stiffer wire. This was performed using a 6-Cypriot multipurpose catheter, through which we advanced a Lunderquist double curve wire and the distal end was placed in the left superior pulmonary vein. This eventually allowed to advance the sheath across the interatrial septum. A 6-Cypriot angled pigtail catheter was advanced and used [...] the (more content not included)... Normal [facility] PROTHROMBIN TIMEon INR Coag (PPP) [Relative time] 1.09 {INR} Normal 0.91-1.16 [facility] Comment on above: Order Comment: No: [...] CHEST 1995;[id number]. Performed By: #### 5 6101, 57117 #### [facility] [address] [place] [address], [facility] PT Coag (PPP) [Time] 14.1 s Normal 12.3-14.8 [facility] Comment on above: Order Comment: No: D o not add to previous draw Result Comment: ALL RESULTS MUST BE INTERPRETED WITH RESPECT TO BLOOD DRAWING ARTIFACT OR DILUTION ERROR OF ANTICOAGULANT AT THE TIME OF SAMPLING. Performed By: #### 5 6101, 12951 #### [facility] [address] [place] [address], [facility] TYPE AND SCREENon 12-12-2021 ABO INTERPRETATION O Normal [facility] Comment on above: Performed By: #### 6 2586 #### [facility] [address] [place] [address], [place] RH INTERPRETATION Positive Normal [facility] Comment on above: Performed By: #### 6 2586 #### [facility] [address] [facility] [address], [facility] Covid-19 PCR (CVDTB)on 11-20 SARS-CoV-2 (COVID-19) RNA MIKE+probe Ql (Unsp spec) Not detected Normal NOT DETECTED [facility] Comment on above: Result Comment: This test is not yet approved or cleared by the [place] FDA. When there are no FDA-approved or cleared tests available, and other criteria are met, FDA can make tests available under an emergency access mechanism called an Emergency Use Authorization (EUA). The EUA for this test is supported by the Literary Agent of Health and Human Service's (HHS's) declaration [...] SARS-CoV-2. Performed By: #### L ACT #### [facility] [address] [place] [address] Dr. Kulwant Brennan *MRSA/MSSA DNA NASALon 11-21 *MRSA/MSSA DNA NASAL Clinical Report: (D ) Specimen: NASAL SWAB Collected: 11/21/2021 09:15 Status: Final Last Updated: 11/21/2021 12:32 MSSA DNA (Final) Negative MRSA DNA (Final) Negative Normal [facility] Comment on above: Performed By: #### 3 1595 #### [facility] [address] [place] [address], [facility] BASIC METABOLIC PANELon 080 Calcium [Mass/Vol] 7.0 mg/dL Low 8.6-10.3 [facility] Comment on above: Performed By: #### 0 0071 #### [facility] [address] [place] [address], [facility] Chloride [Moles/Vol] 105 mmol/L Normal 98-107 [facility] Comment on above: Performed By: #### 0 0071 #### [facility] [address] [place] [address], [facility] CO2 [Moles/Vol] 25 mmol/L Normal 21-31 [facility] Comment on above: Performed By: #### 0 0071 #### [facility] [address] [place] [address], [facility] Creatinine [Mass/Vol] 1.37 mg/dL High 0.70-1.30 [facility] Comment on above: Performed By: #### 0 0071 #### [facility] [address] [place] [address], [facility] EGFR 56 ml/min/1.73sq m Abnormal >60 [facility] Comment on above: Result Comment: [facility]'s estimated glomerular filtration rate (eGFR) will [...] individuals. Performed By: #### 0 0071 #### [facility] [address] [place] [address], [facility] Glucose [Mass/Vol] 100 mg/dL Normal 70-100 [facility] Comment on above: Performed By: #### 0 0071 #### [facility] [address] [place] [address], [facility] Potassium [Moles/Vol] 4.6 mmol/L Normal 3.5-5.1 [facility] Comment on above: Performed By: #### 0 0071 #### [facility] [address] [place] [address], [facility] Sodium [Moles/Vol] 139 mmol/L Normal 136-145 [facility] Comment on above: Performed By: #### 0 0071 #### [facility] [address] [place] [address], [facility] Urea nitrogen [Mass/Vol] 26 mg/dL High 7-25 [facility] Comment on above: Performed By: #### 0 0071 #### [facility] [address] [place] [address], [facility] CBC COMPLETE BLOOD COUNTon 0 11-21-2021 Erythrocyte distribution width (RBC) [Ratio] 14.2 % Normal 11.5-15.0 [facility] Comment on above: Performed By: #### 5 6101, 87139 #### [facility] [address] [place] [address], [facility] Hematocrit (Bld) [Volume fraction] 40.6 % Normal 39.0-50.0 [facility] Comment on above: Performed By: #### 5 610, 45103 #### [facility] [address] [place] [address], [facility] Hemoglobin (Bld) [Mass/Vol] 13.0 g/dL Normal 13.0-17.0 [facility] Comment on above: Performed By: #### 5 6101, 22719 #### [facility] [address] [place] [address], [facility] MCH (RBC) [Entitic mass] 27.0 pg Normal 27.0-33.0 [facility] Comment on above: Performed By: #### 5 610, 44055 #### [facility] [address] [place] [address], [place] MCHC (RBC) [Mass/Vol] 32.0 g/dL Normal 32.0-35.0 [facility] Comment on above: Performed By: #### 5 610, 33902 #### [facility] [address] [facility] [place] [address], [facility] MCV (RBC) [Entitic vol] 84.4 fL Normal 82.0-98.0 [facility] Comment on above: Performed By: #### 5 6100, 04065 #### [facility] [address] [facility] [place] [address], [facility] Nucleated RBC/100 WBC (Bld) [Ratio] 0 % Normal 0-0 [facility] Comment on above: Performed By: #### 5 6100, 12258 #### [facility] [address] [facility] [place] [address], [facility] PLAT CNT 232 10*3/uL Normal 150-400 [facility] Comment on above: Performed By: #### 5 6100, 53161 #### [facility] [address] [facility] [place] [address], [facility] RBC (Bld) [#/Vol] 4.81 10*6/uL Normal 4.20-5.70 [facility] Comment on above: Performed By: #### 5 6100, 48675 #### [facility] [address] [facility] [place] [address], [facility] WBC (Bld) [#/Vol] 7.53 10*3/uL Normal 4.00-10.60 [facility] Comment on above: Performed By: #### 5 610, 50898 #### [facility] [address] [facility] [place] [address], [facility] CHEST AND LATERALon 11-22-19 22 CHEST AND LATERAL [facility] Department of Radiology [address] [place] [id number] Patient Name: YOLI ANTUNEZ : 1955 Sex: [...] device. Electronically signed: Danilo Bhandari. Transcribed by: [email or web address], User Resident: Electronically Signed by: DANILO BHANDARI @ 11/21/2021 11:32 AM Normal [facility] Comment on above: Order Comment: No: D o not add to previous draw Covid-19 PCR (CVDTBH)on 10-21 SARS-CoV-2 (COVID-19) RNA MIKE+probe Ql (Unsp spec) Not detected Normal NOT DETECTED [facility] Comment on above: Result Comment: This test is not yet approved or cleared by the [place] FDA. When there are no FDA-approved or cleared tests available, and other criteria are met, FDA can make tests available under an emergency access mechanism called an Emergency Use Authorization (EUA). The EUA for this test is supported by the [place] of [employer] and Human Service's (HHS's) declaration [...] consistent with SARS-CoV-2. Performed By: #### C [facility] ####[facility] [address] [place], [place] [address]NaAmarjit Kulwant Mika Cardiovascular Lab Reporton 11-09-2021 Cardiovascular Lab Report [facility] Yoli Peoples MR #: [id number] Department of Physician: Lalito Joshi MD Medicine Service Date: 11/09/2021 Division of Birthdate: 1955 Cardiology Room #: [facility] Cardiovascular Services [place] [address] Cardiovascular Laboratory Report LOOP IMPLANT PROCEDURE NOTE [...] the sternum on the left using the [employer] tool. The loop recorder was then [...] observed. LOOP details: Device Model: [id number] Serial#: [id number] Sensin.16mV. IMPRESSION: Successful placement of LOOP implant with excellent sensing parameters. RECOMMENDATIONS: 1. Occlusive dressing to be changed after 7 days. 2. Do not wet the incision. Lalito Joshi MD Cardiac Electrophysiology. Electronically Signed by: Lalito Joshi MD 11/10/2021 11:10 A Lalito Joshi MD Date Dict: 11/09/2021/08:45 A/Lalito Joshi MD Date Trans: 11/09/2021 11:32 A/liliane DN_JN:[id number] cc: Radha Burris M.D. [address] [facility] [address] Normal [facility] POC SARS COV2 IDon 2 SARS-CoV-2 (COVID-19) RNA MIKE+probe Ql (Unsp spec) Negative Normal NEGATIVE [facility] Comment on above: Result Comment: ID [...] of Accreditation. Performed By: #### 5 [id number], [id number] #### [facility] [address] [place] [address], [facility] BNPon 10-03-2021 Natriuretic peptide B (Bld) [Mass/Vol] 75.0 pg/mL Normal <=900.0 [facility] Comment on above: Performed By: #### H STROPN #### [facility] [address] [place] [address] Dr. Kulwant Brennan CARDIAC MAYELIN ADMITon 022 CK [Catalytic activity/Vol] 142 U/L Normal 39-308 [facility] Comment on above: Performed By: #### H STROPN #### [facility] [address] [place] [address] Dr. Kulwant Brennan CK.MB [Mass/Vol] 1.15 ng/mL Normal <=3.60 [facility] Comment on above: Performed By: #### H STROPN #### [facility] [address] [place] [address] Dr. Kulwant Brennan HSTROP 4.0 pg/mL Normal 4.0-76.1 [facility] Comment on above: Result Comment: CUT- OFF POINTS HAVE BEEN ESTABLISHED BASED ON THE FOURTH UNIVERSAL DEFINITIONS OF MYOCARDIAL INFARCTION. THE UPPER REFERENCE LIMIT (URL) OF TROPONIN, DEFINED THE 99TH PERCENTILE OF cTnI DISTRIBUTION IN A REFERENCE POPULATION, HAS BEEN CONFIRMED THE DECISION THRESHOLD FOR ND DIAGNOSIS. Performed By: #### H STROPN #### [facility] [address] [place] [address] Dr. Kulwant Brennan EFRAIN 57 ng/mL Normal 16-96 [facility] Comment on above: Performed By: #### H STROPN #### [facility] [address] [place] [address] Dr. Kulwant Brennan CBC AUTO DIFFon 10-03-2021 BASO # 0.0 103/ul Normal 0.0-0.1 [facility] Comment on above: Performed By: #### H STROPN #### [facility] [address] [place] [address] [address] Kulwant Brennan Basophils/100 WBC (Bld) 0.4 % Normal 0.2-2.0 [facility] Comment on above: Performed By: #### H STROPN #### [facility] [address] [place] [address] [address] Kulwant Brennan EO # 0.2 103/ul Normal 0.0-0.7 [facility] Comment on above: Performed By: #### H STROPN #### [facility] [address] [place] [address] Dr. Kulwant Brennan Eosinophils/100 WBC (Bld) 2.6 % Normal 0.9-7.0 [facility] Comment on above: Performed By: #### H STROPN #### [facility] [address] [place] [address] Dr. Kulwant Brennan Erythrocyte distribution width (RBC) [Ratio] 14.6 % Normal 11.0-15.0 [facility] Comment on above: Performed By: #### H STROPN #### [facility] [address] [place] [address] Dr. Kulwant Brennan Hematocrit (Bld) [Volume fraction] 43.0 % Normal 42.0-54.0 [facility] Comment on above: Performed By: #### H STROPN #### [facility] [address] [place] [address] Dr. Kulwant Brennan Hemoglobin (Bld) [Mass/Vol] 13.6 g/dL Critically low 14.0-18.0 [facility] Comment on above: Performed By: #### H STROPN #### [facility] [address] [place] [address] Dr. Kulwant Brennan IG # 0.03 10e3/ul Normal 0.00-0.03 [facility] Comment on above: Performed By: #### H STROPN #### [facility] [address] [place] [address] Dr. Kulwant Brennan IG % 0.4 % Normal 0.0-0.5 [facility] Comment on above: Performed By: #### H STROPN #### [facility] [address] [place] [address] [address] Kulwant Brennan LYMPH # 1.8 103/ul Normal 1.2-3.8 [facility] Comment on above: Performed By: #### H STROPN #### [facility] [address] [place] [address] [address] Kulwant Brennan Lymphocytes/100 WBC (Bld) 25.3 % Normal 20.5-60.0 [facility] Comment on above: Performed By: #### H STROPN #### [facility] [address] [place] [address] [address] Kulwant Brennan MANUAL DIFF REQ NO Normal [facility] Comment on above: Performed By: #### H STROPN #### [facility] [address] [place] [address] Dr. Kulwant Brennan MCH (RBC) [Entitic mass] 27.1 pg Normal 25.9-34.0 [facility] Comment on above: Performed By: #### H STROPN #### [facility] [address] [place] [address] Dr. Kulwant Brennan MCHC (RBC) [Mass/Vol] 31.6 g/dL Normal 29.9-35.2 [facility] Comment on above: Performed By: #### H STROPN #### [facility] [address] [place] [address] Dr. Kulwant Brennan MCV (RBC) [Entitic vol] 85.8 fL Normal 80.0-94.0 [facility] Comment on above: Performed By: #### H STROPN #### [facility] [address] [place] [address] Dr. Kulwant Brennan MONO # 0.8 103/ul Normal 0.3-0.8 [facility] Comment on above: Performed By: #### H STROPN #### [facility] [address] [place] [address] [address] Kulwant Brennan Monocytes/100 WBC (Bld) 11.9 % Normal 1.7-12.0 [facility] Comment on above: Performed By: #### H STROPN #### [facility] [address] [place] [address] Dr. Kulwant Brennan NEUT # 4.1 103/ul Normal 1.4-6.5 [facility] Comment on above: Performed By: #### H STROPN #### [facility] [address] [place] [address] Dr. Kulwant Brennan Neutrophils/100 WBC (Bld) 59.4 % Normal 43.0-75.0 [facility] Comment on above: Performed By: #### H STROPN #### [facility] [address] [place] [address] Dr. Kulwant Brennan Platelet mean volume (Bld) [Entitic vol] 9.8 fL Normal 9.5-13.5 [facility] Comment on above: Performed By: #### H STROPN #### [facility] [address] [place] [address] Dr. Kulwant Brennan PLT 201 103/ul Normal 150-450 [facility] Comment on above: Performed By: #### H STROPN #### [facility] [address] [place] [address] Dr. Kulwant Brennan RBC 5.01 106/ul Normal 4.70-6.10 [facility] Comment on above: Performed By: #### H STROPN #### [facility] [address] [place] [address] Dr. Kulwant Brennan WBC 7.0 103/ul Normal 4.0-11.0 [facility] Comment on above: Performed By: #### H STROPN #### [facility] [address] [place] [address] HEAD WO CONon [...] DONNELL DU Date: 2021-10-03 11:41 Normal [facility] CTA CHEST WO W CONon 022 [...] DONNELL DU Date: 2021-10-03 11:50 Normal [facility] ER URINE PROFILEon 2 Bilirubin Ql (U) Negative Normal NEGATIVE [facility] Comment on above: Performed By: #### H STROPN #### [facility] [address] [place] [address] Dr. Kulwant Brennan Clarity (U) CLEAR Normal CLEAR [facility] Comment on above: Performed By: #### H STROPN #### [facility] [address] [place] [address] [address] Kulwant Brennan Color (U) LT. YELLOW Normal YELLOW [facility] Comment on above: Performed By: #### H STROPN #### [facility] [address] [place] [address] Dr. Kulwant Brennan ERUAHD A micrscopic examina tion will be performed if indicated. Normal [facility] Comment on above: Performed By: #### H STROPN #### [facility] [address] [place] [address] Dr. Kulwant Brennan Glucose Ql (U) Negative Normal NEGATIVE [facility] Comment on above: Performed By: #### H STROPN #### [facility] [address] [place] [address] Dr. Kulwant Brennan Hemoglobin Ql (U) Negative Normal NEGATIVE [facility] Comment on above: Performed By: #### H STROPN #### [facility] [address] [place] [address] Dr. Kulwant Brennan Ketones Ql (U) Negative Normal NEGATIVE [facility] Comment on above: Performed By: #### H STROPN #### [facility] [address] [place] [address] Dr. Kulwant Brennan LEUKOCYTES Negative Normal NEGATIVE [facility] Comment on above: Performed By: #### H STROPN #### [facility] [address] [place] [address] Dr. Kulwant Brennan Nitrite Ql (U) Negative Normal NEGATIVE [facility] Comment on above: Performed By: #### H STROPN #### [facility] [address] [place] [address] Dr. Kulwant Brennan pH (U) 5.5 [pH] Normal 5-9 [facility] Comment on above: Performed By: #### H STROPN #### [facility] [address] [place] [address] Dr. Kulwant Brennan SPEC GRAVITY 1.025 Normal 1.005-<=1. 025 [facility] Comment on above: Performed By: #### H STROPN #### [facility] [address] [place] [address] Dr. Kulwant Brennan UA PROTEIN Negative Normal NEGATIVE/ TRACE [facility] Comment on above: Performed By: #### H STROPN #### [facility] [address] [place] [address] Dr. Kulwant Brennan UR MICRO IND NOT INDICATED Normal [facility] Comment on above: Performed By: #### H STROPN #### [facility] [address] [place] [address] Dr. Kulwant Brennan Urobilinogen Qn (U) 0.2 {Luis'U}/dL Normal 0.2 - 1. 0 [facility] Comment on above: Performed By: #### H STROPN #### [facility] [address] [place] [address] Dr. Kulwant Brennan PROF 14(COMP METB)on 022 Albumin [Mass/Vol] 3.9 g/dL Normal 3.4-5.0 [facility] Comment on above: Performed By: #### H STROPN #### [facility] [address] [place] [address] Dr. Kulwant Brennan Albumin/Globulin [Mass ratio] 1.0 {ratio} Normal [facility] Comment on above: Performed By: #### H STROPN #### [facility] [address] [place] [address] Dr. Kulwant Brennan ALP [Catalytic activity/Vol] 59 U/L Normal 46-116 [facility] Comment on above: Performed By: #### H STROPN #### [facility] [address] [place] [address] Dr. Kulwant Brennan ALT [Catalytic activity/Vol] 30 U/L Normal 16-63 [facility] Comment on above: Performed By: #### H STROPN #### [facility] [address] [place] [address] Dr. Kulwant Brennan Anion gap [Moles/Vol] 13.4 mmol/L Normal [facility] Comment on above: Performed By: #### H STROPN #### [facility] [address] [place] [address] Dr. Kulwant Brennan AST [Catalytic activity/Vol] 14 U/L Critically low 15-37 [facility] Comment on above: Performed By: #### H STROPN #### [facility] [address] [place] [address] [address] Kulwant Brennan Bilirubin [Mass/Vol] 0.6 mg/dL Normal 0.2-1.0 [facility] Comment on above: Performed By: #### H STROPN #### [facility] [address] [place] [address] [address] Kulwant Brennan Calcium [Mass/Vol] 7.6 mg/dL Critically low 8.5-10.1 [facility] Comment on above: Performed By: #### H STROPN #### [facility] [address] [place] [address] Dr. Kulwant Brennan Chloride [Moles/Vol] 107 mmol/L Normal 98-107 [facility] Comment on above: Performed By: #### H STROPN #### [facility] [address] [place] [address] Dr. Kulwant Brennan CO2 [Moles/Vol] 24.4 mmol/L Normal 21.0-32.0 [facility] Comment on above: Performed By: #### H STROPN #### [facility] [address] [place] [address] Dr. Kulwant Brennan Creatinine [Mass/Vol] 1.36 mg/dL Critically high 0.70-1.30 [facility] Comment on above: Performed By: #### H STROPN #### [facility] [address] [place] [address] Dr. Kulwant Brennan EGFR-AF SRI LANKAN >60 Normal >=60 [facility] Comment on above: Performed By: #### H STROPN #### [facility] [address] [place] [address] Dr. Kulwant Brennan EGFR-NON AF SRI LANKAN 52 mL/min/1.73m2 Critically low >=60 [facility] Comment on above: Performed By: #### H STROPN #### [facility] [address] [place] [address] Dr. Kulwant Brennan Globulin (S) [Mass/Vol] 3.8 g/dL Normal [facility] Comment on above: Performed By: #### H STROPN #### [facility] [address] [place] [address] [address] Kulwant Brennan Glucose [Mass/Vol] 99 mg/dL Normal 74-106 [facility] Comment on above: Performed By: #### H STROPN #### [facility] [address] [place] [address] [address] Kulwant Brennan Potassium [Moles/Vol] 3.8 mmol/L Normal 3.5-5.1 [facility] Comment on above: Performed By: #### H STROPN #### [facility] [address] [place] [address] Dr. Kulwant Brennan Protein [Mass/Vol] 7.7 g/dL Normal 6.4-8.2 [facility] Comment on above: Performed By: #### H STROPN #### [facility] [address] [place] [address] [address] Kulwant Brennan Sodium [Moles/Vol] 141 mmol/L Normal 136-145 [facility] Comment on above: Performed By: #### H STROPN #### [facility] [address] [place] [address] Dr. Kulwant Brennan Urea nitrogen [Mass/Vol] 24.0 mg/dL Critically high 7.0-18.0 [facility] Comment on above: Performed By: #### H STROPN #### [facility] [address] [place] [address] [address] Kulwant Brennan Urea nitrogen/Creatinine [Mass ratio] 17.6 mg/mg Normal [facility] Comment on above: Performed By: #### H STROPN #### [facility] [address] [place] [address] [address] Kulwant Brennan PROTIMEon 10-03-2021 INR Coag (PPP) [Relative time] 1.04 {INR} Normal [facility] Comment on above: Performed By: #### P T, PTT ####[facility] [address] [place] [address]Dr. Kulwant Brennan INR GUIDELINES SEE BELOW Normal [facility] Comment on above: Result Comment: HAYDEE RED INR: 2.0 - 3.0 CONDITIONS NOT LISTED BELOW 2.5 - 3.5 FOR PROSTHETIC HEART VALVE REPLACEMENT 2.5 - 3.5 RECURRENT THROMBOSIS Performed By: #### P T, PTT ####[facility] [address] [place], [place] [address]FhAmarjit Brennan PT Coag (PPP) [Time] 11.2 s Normal 9.0-11.6 [facility] Comment on above: Performed By: #### P T, PTT ####[facility] [address] [place], [place] [address]EuDr. Kulwant Brennan PTTon 10-03-2021 aPTT Coag (Bld) [Time] 33.1 s Normal 22.3-36.2 [facility] Comment on above: Performed By: #### P T, PTT ####[facility] [address] [place] [address]DrAmarjit Brennan TROPONIN, HIGH SENSITIVITYon 10-03-2021 HSTROP 5.1 pg/mL Normal 4.0-76.1 [facility] Comment on above: Result Comment: CUT- OFF POINTS HAVE BEEN ESTABLISHED BASED ON THE FOURTH UNIVERSAL DEFINITIONS OF MYOCARDIAL INFARCTION. THE UPPER REFERENCE LIMIT (URL) OF TROPONIN, DEFINED THE 99TH PERCENTILE OF cTnI DISTRIBUTION IN A REFERENCE POPULATION, HAS BEEN CONFIRMED THE DECISION THRESHOLD FOR ND DIAGNOSIS. Performed By: #### H STROPN #### [facility] [address] [id number] Kulwant Brennan VC VENOUS REFLUX RIOS LMTon 0 10-03-2021 VC VENOUS REFLUX RIOS LMT Patient: YOLI ANTUNEZ Exam Date: 10/03/2021 : 1955 Gender:M Ordering : YANDEL SHEN Admission #: [id number] Family : Order #: [id number] CLICK HERE TO VIEW EXAM RADIOLOGY REPORT [...] chronic thrombus visualized Compressibility: Normal Flow: Normal Sport Psychologist: Dist/med off PTV 2 mm, 0s reflux; [...] M.D. on 10/04/2021 at 12:09 Normal [facility] XR CHEST 1 Von 10-03-2021 XR [...] ELENA EMERY Date: 2021-10-03 13:00 Normal [facility] ANAon 09-29-2021 KYLE PATTERN NUCLEOLAR Normal [facility] Comment on above: Result Comment: [...] authority. Performed By: #### 1 0196 #### [facility] [address] [facility] [address], [facility] KYLE SCREEN 1:40 Normal <1:40,1:40 [facility] Comment on above: Result Comment: Test performed using KHALIDA IFA KYLE Hep-2 Test, a pre-standardized assay designed for the qualitative and semi-quantitative detection of antinuclear antibodies. Performed By: #### 1 0196 #### [facility] [address] [place] [address], [facility] C REACTIVE PROTEINon 022 CRP [Mass/Vol] 3.1 mg/L Normal 0.0-7.0 [facility] Comment on above: Performed By: #### 5 6101, [address] #### [facility] [address] [place] [id number] 09-29-2021 CYCLIC CIT PEP 4 Units Normal 0-19 [facility] Comment on above: Result Comment: INTE [...] be monitored and testing repeated. Performed By: [facility] [address] [place] [id number] [employer] Paraprofessional: Jaz Villareal MD RHEUMATOID FACTOR SERUMon RA <20 Normal 0-20 [facility] Comment on above: Performed By: #### 5 4041, [id number] #### [facility] [address] [place] [address], [facility] SEDIMENTATION RATEon SED RATE 12 mm/hr High 0-10 [facility] Comment on above: Performed By: #### 5 6506 #### [facility] [address] US ANDREW DOP LEG BILon 022 [...] DEL ANGEL Date: 2021-09-27 16:12 Normal [facility] CT Head or Brain w/o Contras [...] by Hollis Cadet on 09/11/2021 1546 Normal [facility] Comprehensive Metabolic Pane julian 06-27-2021 Albumin [Mass/Vol] 4.9 g/dL Normal 3.6-5.1 [place] Comment on above: Performed By: #### C MP #### [facility] [address] [place], [place] [id number] Albumin/Globulin [Mass ratio] 1.8 {ratio} Normal 1.0-2.5 [facility] Comment on above: Performed By: #### C MP #### [facility] [address] [place], [place] [id number] ALP [Catalytic activity/Vol] 83 U/L Normal 40-129 [facility] Comment on above: Performed By: #### C MP #### [facility] [address] [place], [place] [id number] ALT [Catalytic activity/Vol] 20 U/L Normal 9-46 [facility] Comment on above: Result Comment: 03/22 Female reference range changed. Performed By: #### C MP #### [facility] [address] [place], [place] [id number] Anion gap [Moles/Vol] 18 mmol/L Normal 12-20 [facility] Comment on above: Result Comment: Efflilly ctive 04/27/2019 reference range changed. Performed By: #### C MP #### [facility] [address] [place], [place] [id number] AST [Catalytic activity/Vol] 18 U/L Normal 10-40 [facility] Comment on above: Performed By: #### C MP #### [facility] [address] [place], [place] [id number] Bilirubin [Mass/Vol] 0.33 mg/dL Normal 0.30-1.20 [facility] Comment on above: Performed By: #### C MP #### [facility] [address] [place], [place] [id number] BUN/CREA 20 Ratio Normal 6-22 [facility] Comment on above: Performed By: #### C MP #### [facility] [address] [place], [place] [id number] Calcium [Mass/Vol] 8.4 mg/dL Low 8.6-10.2 [place] Comment on above: Performed By: #### C MP #### [facility] [address] [place], [place] [id number] Chloride [Moles/Vol] 106 mmol/L Normal 98-107 [facility] Comment on above: Performed By: #### C MP #### [facility] [address] [place], [place] [id number] CO2 [Moles/Vol] 24 mmol/L Normal 20-31 [facility] Comment on above: Performed By: #### C MP #### [facility] [address] [place], [place] [id number] Creatinine [Mass/Vol] 1.4 mg/dL Normal 0.7-1.4 [facility] Comment on above: Performed By: #### C MP #### [facility] [address] [place], [place] [id number] eGFRAA 59 mL/min/1.73m2 Low >60 [facility] Specialist Comment on above: Performed By: #### C MP #### [facility] [address] [place], [place] [id number] eGFRNAA 49 mL/min/1.73m2 Low >60 [facility] [employer] Comment on above: Performed By: #### C MP #### [facility] [address] [place], [place] [id number] Globulin (S) [Mass/Vol] 2.7 g/dL Normal 1.9-3.7 [facility] Comment on above: Performed By: #### C MP #### [facility] [address] [place], [place] [id number] Glucose [Mass/Vol] 98 mg/dL Normal 65-99 [facility] rn [place] [employer] [facility] Comment on above: Result Comment: For FASTING Glucose --- ADA reference ranges: Normal 65-99 mg/dl Prediabetes 100-125 Diabetes >/= 126 Performed By: #### C MP #### [facility] [address] [place], [place] [id number] Potassium [Moles/Vol] 5.0 mmol/L Normal 3.5-5.5 [facility] Comment on above: Performed By: #### C MP #### [facility] [address] [place], [place] [id number] Protein [Mass/Vol] 7.6 g/dL Normal 6.1-8.1 [facility] rn [place] [employer] [facility] Comment on above: Performed By: #### C MP #### [facility] [address] [place], [place] [id number] Sodium [Moles/Vol] 143 mmol/L Normal 135-146 [facility] rn [place] [employer] [facility] Comment on above: Performed By: #### C MP #### [facility] [address] [place], [place] [id number] Urea nitrogen [Mass/Vol] 30 mg/dL High 7-25 [facility] Comment on above: Performed By: #### C MP #### [facility] [address] [place], [place] [id number] Magnesiumon 06-07-2021 Magnesium [Mass/Vol] 2.0 mg/dL Normal 1.5-2.3 Charo rubio [place] [employer] Comment on above: Performed By: #### V ITD, MG, PHOS #### [facility] [address] [place], [place] [id number] Parathyroid Hormone, Intacto n 06-07-2021 PTH 12.53 pg/mL Low 16.00-65.0 0 [facility] [employer] [facility] Comment on above: Performed By: #### P TH* #### [facility] [address] [place], [place] [id number] Phosphoruson 06-07-2021 Phosphate [Mass/Vol] 4.3 mg/dL Normal 2.2-4.4 [facility] on above: Performed By: #### V ITD MG, PHOS #### [facility] [address] [place], [place] [id number] Q - CALCIUM,IONIZEDon 2021 CALCIUM, IONIZED 4.0 mg/dL Low 4.8-5.6 [facility] Comment on above: Order Comment: [facility] performed at: QPT, [facility], [address] [facility], [address] [place] [address], [id number], [employer] Paraprofessional: Janes Vasquez MDQuest Collection Date/Time: [id number] Results Received Date/Time: [id number] Reported Date/Time: Performed By: #### C MP, CBCAD, TSH #### [facility] [address] [place], [place] [id number] Vitamin D 25-OHon 06-07-2021 VIT D 25 OH 27 ng/ml Low >29 [facility] Credit Checker Comment on above: Result Comment: Merlene min D Status Deficiency <20 ng/mL Insufficiency 20-29 ng/mL Optimal 30-100 ng/mL Possible Toxicity >=150 ng/mL Performed By: #### V ITD, MG, PHOS #### [facility] [address] [place], [place] [id number] Complete Blood Count with Au to Diffon 06-06-2021 Basophils (Bld) [#/Vol] 0.04 10*3/uL Normal 0.00-0.20 [facility] Credit Checker Comment on above: Performed By: #### C MP, CBCAD, TSH #### [facility] [address] [place], [place] [id number] Basophils/100 WBC (Bld) 0.6 % Normal [place] Credit Checker Comment on above: Performed By: #### C MP, CBCAD, TSH #### [facility] [address] [place], [place] [id number] Eosinophils (Bld) [#/Vol] 0.28 10*3/uL Normal 0.02-0.50 [facility] Specialist Comment on above: Performed By: #### C MP, CBCAD, TSH #### [facility] [address] [place], [place] [id number] Eosinophils/100 WBC (Bld) 4.1 % Normal [facility] Specialist Comment on above: Performed By: #### C MP, CBCAD, TSH #### [facility] [address] [place], [place] [id number] Erythrocyte distribution width (RBC) [Ratio] 14.5 % Normal 11.0-15.0 [facility] Specialist Comment on above: Performed By: #### C MP, CBCAD, TSH #### [facility] [address] [place], [place] [id number] Hematocrit (Bld) [Volume fraction] 43.0 % Normal 38.5-50.0 [facility] Specialist Comment on above: Performed By: #### C MP, CBCAD, TSH #### [facility] [address] [place], [place] [id number] Hemoglobin (Bld) [Mass/Vol] 13.7 g/dL Normal 13.0-17.1 [facility] Specialist Comment on above: Performed By: #### C MP, CBCAD, TSH #### [facility] [address] [place], [place] [id number] Lymphocytes (Bld) [#/Vol] 1.6 10*3/uL Normal 0.9-3.9 [facility] Specialist Comment on above: Performed By: #### C MP, CBCAD, TSH #### [facility] [address] [place], [place] [id number] Lymphocytes/100 WBC (Bld) 22.6 % Normal [facility] Specialist Comment on above: Performed By: #### C MP, CBCAD, TSH #### [facility] [address] [place], [place] [id number] MCH (RBC) [Entitic mass] 26.1 pg Low 27.0-33.0 [facility] Credit Checker Comment on above: Performed By: #### C MP, CBCAD, TSH #### [facility] [address] [place], [place] [id number] MCHC (RBC) [Mass/Vol] 31.9 g/dL Low 32.0-36.0 [facility] Credit Checker Comment on above: Performed By: #### C MP, CBCAD, TSH #### [facility] [address] [place], [place] [id number] MCV (RBC) [Entitic vol] 82 fL Normal 80-100 [facility] Specialist Comment on above: Performed By: #### C MP, CBCAD, TSH #### [facility] [address] [place], [place] [id number] Monocytes (Bld) [#/Vol] 0.7 10*3/uL Normal 0.2-0.9 [facility] Specialist Comment on above: Performed By: #### C MP, CBCAD, TSH #### [facility] [address] [place], [place] [id number] Monocytes/100 WBC (Bld) 10.1 % Normal [facility] Specialist Comment on above: Performed By: #### C MP, CBCAD, TSH #### [facility] [address] [place], [place] [id number] Neutrophils (Bld) [#/Vol] 4.3 10*3/uL Normal 1.5-7.8 [facility] Specialist Comment on above: Performed By: #### C MP, CBCAD, TSH #### [facility] [address] [place], [place] [id number] Neutrophils/100 WBC (Bld) 62.0 % Normal [facility] Specialist Comment on above: Performed By: #### C MP, CBCAD, TSH #### [facility] [address] [place], [place] [id number] Platelet mean volume (Bld) [Entitic vol] 10.90 fL Normal 7.50-12.50 [facility] Specialist Comment on above: Performed By: #### C MP, CBCAD, TSH #### [facility] [address] [place], [place] [id number] Platelets (Bld) [#/Vol] 250 10*3/uL Normal 140-400 [facility] Specialist Comment on above: Performed By: #### C FILIBERTO, CBCAD, TSH #### [facility] [address] [place], [place] [id number] RBC (Bld) [#/Vol] 5.25 10*6/uL Normal 4.20-5.80 [facility] Comment on above: Performed By: #### C FILIBERTO, CBCAD, TSH #### [facility] [address] [place], [place] [id number] RDW-SD 43.3 fL Normal 37.0-50.0 [facility] Specialist Comment on above: Performed By: #### C FILIBERTO, CBCAD, TSH #### [facility] [address] [place], [place] [id number] WBC (Bld) [#/Vol] 6.9 10*3/uL Normal 3.8-11.0 [facility] Specialist Comment on above: Performed By: #### C FILIBERTO CBCAD, TSH #### [facility] [address] [place], [place] [id number] Comprehensive Metabolic Pane [place] 06-06-2021 Albumin [Mass/Vol] 4.7 g/dL Normal 3.6-5.1 [facility] Specialist Comment on above: Performed By: #### C FILIBERTO, CBCAD, TSH #### [facility] [address] [place], [place] [id number] Albumin/Globulin [Mass ratio] 1.8 {ratio} Normal 1.0-2.5 [facility] Specialist Comment on above: Performed By: #### C FILIBERTO, CBCAD, TSH #### [facility] [address] [place], [place] [id number] ALP [Catalytic activity/Vol] 87 U/L Normal 40-129 [facility] Specialist Comment on above: Performed By: #### C FILIBERTO, CBCAD, TSH #### [facility] [address] [place], [place] [id number] ALT [Catalytic activity/Vol] 22 U/L Normal 9-46 [facility] Specialist Comment on above: Result Comment: 03/22 Female reference range changed. Performed By: #### C FILIBERTO, CBCAD, TSH #### [facility] [address] [place] [id number] Anion gap [Moles/Vol] 20 mmol/L Normal 12-20 [facility] Comment on above: Result Comment: Ruht ctive 04/27/2019 reference range changed. Performed By: #### C MP, CBCAD, TSH #### [facility] [address] [place] [id number] AST [Catalytic activity/Vol] 18 U/L Normal 10-40 [facility] Comment on above: Performed By: #### C MP, CBCAD, TSH #### [facility] [address] [place], [place] [id number] BUN/CREA 19 Ratio Normal 6-22 [facility] Comment on above: Performed By: #### C MP, CBCAD, TSH #### [facility] [address] [place], [place] [id number] Calcium [Mass/Vol] 7.4 mg/dL Low 8.6-10.2 [place] Comment on above: Performed By: #### C MP, CBCAD, TSH #### [facility] [address] [place], [place] [id number] Chloride [Moles/Vol] 106 mmol/L Normal 98-107 [facility] Comment on above: Performed By: #### C MP, CBCAD, TSH #### [facility] [address] [place], [place] [id number] CO2 [Moles/Vol] 20 mmol/L Normal 20-31 [facility] Comment on above: Performed By: #### C MP, CBCAD, TSH #### [facility] [address] [facility] [id number] Creatinine [Mass/Vol] 1.5 mg/dL High 0.7-1.4 [facility] Comment on above: Performed By: #### C MP, CBCAD, TSH #### [facility] [address] [place] [id number] eGFRAA 59 mL/min/1.73m2 Low >60 [facility] Comment on above: Performed By: #### C MP, CBCAD, TSH #### [facility] [address] [place], [place] [id number] eGFRNAA 48 mL/min/1.73m2 Low >60 [facility] Credit Checker Comment on above: Performed By: #### C MP, CBCAD, TSH #### [facility] [address] [place], [place] [id number] Globulin (S) [Mass/Vol] 2.6 g/dL Normal 1.9-3.7 [facility] Credit Checker Comment on above: Performed By: #### C MP, CBCAD, TSH #### [facility] [address] [place], [place] [id number] Glucose [Mass/Vol] 112 mg/dL High 65-99 [facility] Credit Checker Comment on above: Result Comment: For FASTING Glucose --- ADA reference ranges: Normal 65-99 mg/dl Prediabetes 100-125 Diabetes >/= 126 Performed By: #### C MP, CBCAD, TSH #### [facility] [address] [place], [place] [id number] Potassium [Moles/Vol] 4.3 mmol/L Normal 3.5-5.5 [facility] Credit Checker Comment on above: Performed By: #### C MP, CBCAD, TSH #### [facility] [address] [place], [place] [id number] Protein [Mass/Vol] 7.3 g/dL Normal 6.1-8.1 [facility] Credit Checker Comment on above: Performed By: #### C MP, CBCAD, TSH #### [facility] [address] [place], [place] [id number] Sodium [Moles/Vol] 142 mmol/L Normal 135-146 [facility] Credit Checker Comment on above: Performed By: #### C MP, CBCAD, TSH #### [facility] [address] [place], [place] [id number] TBIL <0.3 Normal [facility] Credit Checker Comment on above: Performed By: #### C MP, CBCAD, TSH #### [facility] [address] [place], [place] [id number] Urea nitrogen [Mass/Vol] 27 mg/dL High 7-25 [facility] Credit Checker Comment on above: Performed By: #### C MP, CBCAD, TSH #### [facility] [address] [place], [place] [id number] Q - TROPONIN Ion 06-06-2021 TROPONIN I 3 ng/L Normal < OR = 47 [facility] Credit Checker Comment on above: Order Comment: [facility] performed at: QPT, [facility], [address], [address] [facility], [place], [address], Readiness Paraprofessional: Janes Vasquez MDQuest Collection Date/Time: [id number] Results Received Date/Time: [id number] Reported Date/Time: Result Comment: In accord with published recommendations, serial testing of troponin I at intervals of 2 to 4 hours for up to 12 to 24 hours is suggested in order to corroborate a single troponin I result. An elevated troponin alone is not sufficient to make the diagnosis of ND. Performed By: #### C MP, CBCAD, TSH #### [facility] [address] [place], [place] [id number] TSHon 06-06-2021 TSH 0.917 uIU/mL Normal 0.400-4.50 0 [facility] Credit Checker Comment on above: Performed By: #### C FILIBERTO, CBCAD, TSH #### [facility] [address] [place], [place] [id number] CT Chest WO contraston 05-01 IMPRESSION: 1. Mild bronchiectasis in both lower lobes, the right middle lobe and the lingula, consistent with remote or chronic airways inflammation. In this distribution, sequelae of chronic aspiration pneumonitis must be considered. A type III hiatal hernia is noted. 2. Fusiform dilation of the ascending thoracic aorta, stable in appearance since the exam dated 01/05/2021. Tuckpointer: PSCB Transcribe Date/Time: May 01 2021 8:27A Dictated by : MASSIMO OAKES MD This examination was interpreted and the report reviewed and electronically signed by: MASSIMO OAKES MD on May 01 2021 8:49AM [facility] DIVISION OF RADIOLOGY * * *Final Report* * * DATE OF EXAM: May 01 2021 8:21AM [facility] 0541 - CT CHEST WO IVCON / [...] A few calcified splenic granulomata are noted. Fishing Tackle Repairer (topogram) images: No additional findings. DIVISION OF RADIOLOGY Provider, [facility] - 05/01/2021 * * *Final Report* * * DATE OF EXAM: May 01 2021 8:21AM [facility] 0541 - CT CHEST WO IVCON / [...] A few calcified splenic granulomata are noted. Fishing Tackle Repairer (topogram) images: No additional findings. IMPRESSION IMPRESSION: 1. Mild bronchiectasis in both lower lobes, the right middle lobe and the lingula, consistent with remote or chronic airways inflammation. In this distribution, sequelae of chronic aspiration pneumonitis must be considered. A type III hiatal hernia is noted. 2. Fusiform dilation of the ascending thoracic aorta, stable in appearance since the exam dated 01/05/2021. Tuckpointer: TRACI Transcribe Date/Time: May 01 2021 8:27A Dictated by : MASSIMO OAKES MD This examination was interpreted and the report reviewed and electronically signed by: MASSIMO OAKES MD on May 01 2021 8:49AM EST [facility] Radiology Study observation (narrative) [facility] CT Chest WO contrastOrdered By: [facility] Provider on 05-01-2021 [facility] Coding Summary.on 10-27-2020 Coding Summary. CD:[id number] Gh0bWw+ PGhlYWQ+WP9ACWLwI88yhQMtfD5 LW8lTQE7WOAYZMSXVLF1UQZ2elU P2LFjzH8QjgdWs UtvqrPLhOO14WNh7EOZ5zWxcAIo bfM1esGUwC7s2BgXiED06wJ70CB wgWFUyTiW3IkFfapdtjQPx D7qhDsVtnEMuNbh+PHRhYmxlIHd xENTdSQgwHNIxHdPsrVwxUD8gUa 9yZGVyLWNvbGxhcHNlOiBj f0hwUBRfAObxUO6uqXbrB8PxuHK 6DONte0c8Ja35qLE+DRHyNAA4rO ucZDurw842RlAqx9ygGLW4 lEWnTWfcUWM0Z31kg5P8JVXdFDR zWOW6cPC2gX6zqTcjmbgcA4SoaN NqJaW0ZUO0jUYbdG2lfJgy ddkowX9jCzc+S91XAT7ICBQAHE4 EIdv1Q6ReHjarqFY+DE35JWFcDR 18wOCvaVAnb7mlxZc9SeYn FYYsYZM8eYohZPioe4BlMGAwE05 azMJfo4Y8TOLooSawfMBaBqEsaT T2tP3uLNeakjitc8vahwiz Mwatg4kvbw23aK24V41sCRieCUH pQQS3HGOtQICgdFxnlm6qkQ7wOk 8+LUtnd5prj4ormOi8FqKd QNFzgqSqnRzfDMJ0j9IbDd35V7Y iiDkfu6PbLfi8dj07bUYbv3P1lX M0NOqbZVOsnW9cCVwcGfI9 LSCmSfTrcQ56qPOgDRjcIg3udGd iyZouWQ1hPNIjsinoTJSekV0hVH AksSUnhQfkPY3xZFQpbunj o356IdBtDIC3IHZstBQkP3VgeJ2 cGrOfHFTnZSNeI6QvmZVgJPatJ1 99ZKchHuF7NKDomnQoF7Jl VWAihWztEsE6v7D9Wy3Hq5Ilotg fBDG3YYwfYKW4LvL6TvHaXlQ5B2 EpCbt0JNJhrMzmAK9mJ0Ij WTHttnbsfuglrZF2ERKqENCrxY5 9tVMqPIzwOc2jm2M0z323GDXtTM LryS65Uu1uqYloJHLvyCBB kP2jcfwua2sgqltlQaSpSTWnSYt 1RYs5RRNewIovHnQxOQI0HrL1EA B5qTPbeY7pvWavvmazwI1w Oyc+X76mbQ8yGJX6AEA8pxjyPDT xvaJpYG50EL74L0KdUepacDKlxB U+QQQmvkAbeRoaCO6iCsOq p0jbe6PlEAnzI2IiVYViWQplKqc 4OZXrKDS0eEA8sV9wENTmRWloz1 H6mQM0X2YlciQfyf2wk0ij PIVtOAhrT95rbIMut6H0DDTneWV 8BSYkoTxcSyEcjB27Lcc+PGNvbG eav3ViDgznw3tcj1ctiAv0 PoViGGBsldQioZxhFLI0l6SaNt4 6W19oEPumBQKvMIHuLVBrMXBptJ kunv0oqP0fQs2+PGNvbCB3 oSN1zI2iFDEdCfH6DByqF456KxV swAQvKhvnn7tfg3nedQk3QnGrGR ZzvdCabFeoSCP0s9XmKh54 G20mHVcjTSVpYIJqOKYlUABcpNo uhn3chH2pCm8+SB1cx7qobw07cA 48dHI+PASzBHY7lZouDYqu ZDXtcV3cAAecCmR5OWJeZhOvcX3 3eYSmGImnDk1ypYjfeRpaEW8qOV Dbrefqc543QfWrj2ecZTBe fIIjWFzoVHG5R83rv3U4BXBvUHG xQVN8gIU9cZ9fdBdpnanovSDrvN wdxyDcfLgoNFxvKDwlQ096 IHRvcDsnPlBhdGllbnQgTmFtZTo 5U0PkZxt2LBQtoJkqYF5jxSJkUL ibFs6xqKmqbCvjFU4bHRTq vtysm746KnQfj5tsLWCtuZLqCPf tZZO7M85el6X6SBJcOOGnLNC4xQ W0xH5huNnbngtzhOYmrJyc jmWzoJfpYGfmCElrI002KOEkrTe tZlCwssSbUWJhmNW2IO93UV26rE Fok4M9wOJ4W1JvDEHbmhba qwussJQ2UWUrZZYvbA50Ml7ixDe sCs3rNNSvPDT7AVDmrAZbR0PsiD 2gByYlPSBmTAXdG8DhtPJp VBntW273JVhaMsG1GZNmdrPlF1I uBNJljEauXiO8c5W9Zf0MG1B2RD 24HQ30kUBcx2Y6lIO5S4Fk IYSozedbxzmonNV2YFQwHMWjoD0 8Ga7jxAieJr6hGVSkJGX2YGYhgJ HpV4IhrR8uVlBtLRAcFBEm E3UxzKGuIQoyT640FNipVmV9QUM xdxUcU0LuHAIqxIpfPaY0o5P5Md 7TEYi4IQ54GX08dHLyl0S7 jTD5P1ArMXPcnpjnpmtgfKA5EIZ tLRWkgE93Zq2amPjpIw7xWEMbNQ B8WDOwiDJlR8DqiB7pGfPb PHAsXGPvT9TglHBcJUohY846FDt tVjK0QYRstuVvU5HmTNLclMlyGp N1k1P0Kz9SUJFyDB43XSE9 mCX4SW44PT21G3LvQzpwxGOjeSZ +PHRhYmxlIHdpZHRoPScxMDAlJy NwzAauCD3uGo2hVUXwHBUx uFepiQRbLlPxf9pnTZTdISwsEK6 nyYosI4HyxIF3IKOww0r8Ia92G0 0xO5OriMX+YCOzbLH8oGO5 bW2pSmIgKvE2FFjgT680XrCbxZR iYegaw8nhy4eboRl5ZaI1WVAisg YbjQybHPF1q9JcNq16C32k IHdpZHRoPSIxNSUiIHZhbGlnbj0 apT0oRf8+YVGojZM2bGR9bZ5xIu CzRgK0UQpnF723EnZxuIRm Xvbmo5dgi4cogOi8QeZvYPMblsR blVmzWWV1s5CtVa25L6XjyAyse7 TiUmo2to30lGBik3A5wLX4 C8LqJTHlmzjleMJfvMqbQT8xWJO lhkfcMVWslS1qLMWgW4u2XcHfVd V9XHxcA3ZhjsK3MGWuxDDq YOyqQZU1U59dp1F9CXWhYNSaFPI 1xPL2kK1sfCswnjwveCQbzVbddc NzkWbzDEwgIWrxO443CQZj wUkxXEVplQ5dADDmgPOtfGzoCM4 wNTBpbjsnPkFVRFJJVFNIIEpSLC LVYjVEZZJEQ3gkWShuqIX+ HTKmQPS1nBozTLpzRVOobF9tFVF kH7u5McIyRjY7HIuyW7AwQSJqpj cfCf01zX3qCxNrOiE2VZnw P3OocaR3LRYvhFDwMCbjZDS7W67 js4Y2QJRtWRDcKOH6bAY0mH4kxK lnbjogbGVmdDsgdmVydGlj TFctTXxcF440XMRlqQywGcIwKgQ xMxL3KXD6K9RxGwg5MFEhyCkdYV 6ffRIuQNesIf6kpRzjhZxd FI0rRTSoghrgKIIdyF6bWZPmyXA feLkrXA8vELOcmxnvk690SpXrRW G2VRMcuTJoO4MrxK9hRaTe SFXpYYOeR3QloXUlKPerE379LKq sWcO3YNLnxqTsB3AlTCSkyPlmNy R9s9F9Kj06XlDXIGYkglcm dGQ+OTWxMQX7xSwcFTevACHffH3 zFVDyH7n1MrCnDdE8PIpjQ4SiPU ZnajevKu78jN7sKxPvMdM3 BWsqH5LkdlN1ICLkxPXsNIpjKGO 5S53pz3F0HUKhOYEcBZB2kDH0oE 1hbGlnbjogbGVmdDsgdmVy lPhzQShfXObzP096DFBdfDizQn1 zbJY9U6VyAmc4ZGLwwQgeRJ7vjM CtQQthIj3ncFbmvErmCL5f VAWhazhyMKNmlO5rBPJobEIpoLq eGY5aQVYxnmzsg387EhDmDCV5EL UhaHRzR1WseK7bSfPwGIXa ZBUtE0NpkOCyHJbyX986XIdqBxJ 6IUQzdoIdG3SrBBPxvMiuCvZ9c3 N4Pu1BrKOeJ0FzP8a4P2Oe PjwvdHI+YM67LNQaJA28qURznPW dz3pqwOt6JsLqTKQmIJU7gTkcUV uxg9HpCPHnS41bqSMzi0S1 TALwmQkdgVMmVrDtkNW4kE4gPDn gmdfmq2rgynbfWvkqm3clnv72yM 74U56jRKpwDOBmXTXmGFZl RMRjlZibfu7djQ2jWx1+PGNvbCB 1mWJ0hP0qAmHpMfP9NGscX242Lq MaiXMcYjmxd0rxy0qjjCi9 GfIlGOIsjsGjqIeuWPP6w4MhTg2 2V87iPCmpUPUjSFVsQPXuHJAqiH xqfs1wtW9uYr2+WS1wy6dj as84pI30uUP+WKIgOMW0vLhlTXw vIZKzmS7tUYpiBhI3JPFpOeFvkZ 56nIHeFUwlNr5yhVqbxVde OI8zRXTjywqjv628OuUor5slXYY zjWAaIVxzGMG5P02av5G5RHBjKJ QdNAS4nIC6wM0jpYbbubxo rYXkrSftclJyqTmbIZveWDpzQ63 1XKBhsKpzElQfmFFiP5uidbKJCY 1lOjwvdGQ+WFOiWYN0cSnu SDogMORjmL9lOMLjO6k2UeXyStG 7JAkuA6YflfN6TXDliUCoHGSlyW AImC8gaccbf8sncvwtQmUl MENqBTe8EHf2XWHimHuzYoCyKGQ 4WhC4OXI2iPSbbF3bfRndmkuykI 9wOyc+RklOOjwvdGQ+PHRk CFN1rDdyRCuwANZeaX1eUIUsI0p 8WgPiZjZ1KZynH6BfusE0FYGomT FcZGDybDCIfH1jyurfx7qr jtprWrSpVCRpJKr7LPw9HDZjbRm uWdHiNVS5MpU3ENW1aDPmgU2tvW oroskskR0oJae+TVJOOjwv dGQ+ZCClBAU1mAdpJFawFOFqcL5 aTVJnI0g1XeAcZbL5PYloU9Ujzi E5KDPphIMqXVVgkECZfB9p onozk5swdwhrWfZsJORsTGw5SUl 2SVOblXsjRcNsPQW8FsM6ZAL4gG QknB8jwJpygfjnjB3qUiw+ CMV8LCI0PJ09WO56T8IdEgnxaYP ibGU+PHRhYmxlIHdpZHRoPScxMD HnTuTuhUtmBT4dCi6cCIHf LWNv (more content not included)... Normal [facility] Auto Diffon 10-18-2020 Basophils/100 WBC (Bld) 1.2 % Normal 0.0-2.0 [facility] Comment on above: Order Comment: Order Added by Discern Expert. Performed By: #### 2 [id number], [id number], [id number] ####[place] [address] [place] [address] Basophils/Leukocytes Auto (Bld) [Pure # fraction] 0.1 E9/L Normal 0.0-0.2 [facility] Comment on above: Order Comment: Order Added by Discern Expert. Performed By: #### 2 [id number], [id number], [id number] ####[facility] [address] [place] [address] Eosinophils/100 WBC (Bld) 1.8 % Normal 0.0-8.0 [facility] Comment on above: Order Comment: Order Added by Discern Expert. Performed By: #### 2 [id number], [id number], [id number] ####[address] [address] Eosinophils/Leukocyt es Auto (Bld) [Pure # fraction] 0.1 E9/L Normal 0.0-0.5 [facility] Comment on above: Order Comment: Order Added by Perry Expert. Performed By: #### 2 [id number], [id number], [id number] ####[address] [address] Lymphocytes/100 WBC (Bld) 27.6 % Normal 14.0-50.0 [facility] Comment on above: Order Comment: Order Added by Discern Expert. Performed By: #### 2 714513, [id number], [id number] ####[address] [address] Lymphocytes/Leukocyt es Auto (Bld) [Pure # fraction] 2.1 E9/L Normal 1.0-4.0 [facility] Comment on above: Order Comment: Order Added by Discern Expert. Performed By: #### 2 263507, [id number], [id number] ####[facility] [address] [place] [address] Monocytes/100 WBC (Bld) 9.6 % Normal 4.0-14.0 [facility] Comment on above: Order Comment: Order Added by Perry Expert. Performed By: #### 2 [id number], [id number], [id number] ####[facility] [address] [place] [address] Monocytes/Leukocytes Auto (Bld) [Pure # fraction] 0.7 E9/L Normal 0.2-1.0 [facility] Comment on above: Order Comment: Order Added by Discern Expert. Performed By: #### 2 915041, [id number], [id number] ####[facility] [address] [place] [address] Neutrophils/100 WBC (Bld) 59.8 % Normal 36.0-75.0 [facility] Comment on above: Order Comment: Order Added by Discern Expert. Performed By: #### 2 585026, 1437687, [id number] ####[facility] [address] [place] [address] Neutrophils/Leukocyt es Auto (Bld) [Pure # fraction] 4.6 E9/L Normal 2.0-7.5 [facility] Comment on above: Order Comment: Order Added by Discern Expert. Performed By: #### 2 [id number], [id number], [id number] ####[facility] [address] [place] [address] BMPon 10-18-2020 Creatinine [Mass/Vol] 1.5 mg/dL High 0.5-1.3 [facility] Comment on above: Performed By: #### 2 [id number], [id number], [id number] ####[facility] [address] [place] [address] Urea nitrogen [Mass/Vol] 29 mg/dL High 5-21 [facility] Comment on above: Performed By: #### 2 950657, [id number], [id number] ####[facility] [address] [place] [address] Urea nitrogen/Creatinine [Mass ratio] 19 No Units Normal 10-20 [facility] Comment on above: Performed By: #### 2 625974, [id number], [id number] ####[facility] [address] [place] [address] Anion gap [Moles/Vol] 11 mmol/L Normal 6-16 [facility] Comment on above: Performed By: #### 2 710431, [id number], [id number] ####[facility] [address] [place] [address] Calcium [Mass/Vol] 8.0 mg/dL Low 8.9-11.1 [facility] Comment on above: Performed By: #### 2 622030, [id number], [id number] ####[facility] [address] [place] [address] Chloride [Moles/Vol] 107 mmol/L Normal 101-111 [facility] Comment on above: Performed By: #### 2 159328, [id number], [id number] ####[facility] [address] [facility] [place] [address] CO2 [Moles/Vol] 24 mmol/L Normal 21-31 [facility] Comment on above: Performed By: #### 2 460090, [id number], [id number] ####[facility] [address] [place] [address] Glucose [Mass/Vol] 95 mg/dL Normal 55-199 [facility] Comment on above: Result Comment: If t his glucose result represents a fasting glucose, interpretation should refer to the following reference range: 55-99 mg/dL Performed By: #### 2 752423, [id number], [id number] ####[facility] [address] [facility] [place] [address] Potassium [Moles/Vol] 3.9 mmol/L Normal 3.5-5.3 [facility] Comment on above: Performed By: #### 2 836498, [id number], [id number] ####[facility] [address] [facility] [place] [address] Sodium [Moles/Vol] 138 mmol/L Normal 135-145 [facility] Comment on above: Performed By: #### 2 842672, [id number], [id number] ####[facility] [address] [place] [place] [address] CBC w/ Auto Diffon 1 Erythrocyte distribution width (RBC) [Ratio] 15.7 % High 10.9-14.2 [facility] Comment on above: Performed By: #### 2 680706, 8270462, [id number] ####[address] [place] [address] Hematocrit (Bld) [Volume fraction] 39.9 % Normal 37.7-49.0 [facility] Comment on above: Performed By: #### 2 842771, 8683280, [id number] ####[address] [address] Hemoglobin (Bld) [Mass/Vol] 13.3 g/dL Low 13.5-17.5 [facility] Comment on above: Performed By: #### 2 071706, [id number], [id number] ####[address] [address] MCH (RBC) [Entitic mass] 27.1 pg Normal 27.0-34.0 [facility] Comment on above: Performed By: #### 2 002568, 7225106, [id number] ####[address] [address] MCHC (RBC) [Mass/Vol] 33.3 g/dL Normal 31.4-36.0 [facility] Comment on above: Performed By: #### 2 139104, 8959067, [id number] ####[address] [address] MCV (RBC) [Entitic vol] 81.4 fL Normal 80.0-100.0 [facility] Comment on above: Performed By: #### 2 313683, 6653717, [id number] ####[address] [address] Platelet mean volume (Bld) [Entitic vol] 9.2 fL Normal 6.4-10.8 [facility] Comment on above: Performed By: #### 2 445092, 0208828, [id number] ####[address] [place] [address] Platelets (Bld) [#/Vol] 223.0 E9/L Normal 150.0-500. 0 [facility] Comment on above: Performed By: #### 2 [id number], [id number], [id number] ####[facility] [address] [place] [address] RBC (Bld) [#/Vol] 4.9 E12/L Normal 4.3-5.9 [facility] Comment on above: Performed By: #### 2 783841, 8328044, [id number] ####[address] [place] [address] WBC corrected for nucl RBC Auto (Bld) [#/Vol] 7.6 E9/L Normal 4.0-11.0 [facility] Comment on above: Performed By: #### 2 312346, 7100143, [id number] ####[address] [address] Capillary Glucose POCon 09-21 Glucose [Mass/Vol] 118 mg/dL High 55-99 [facility] Comment on above: Result Comment: Erika heart RN/ Performed By: #### 2 [id number] ####[address] [address] Consent for Treatmenton 09-21 Consent for Treatment [id number]:127 Normal [facility] Discharge Instructionson Discharge Instructions [id number]:127 Normal [facility] ED Clinical Summaryon 2020 ED Clinical Summary (Inserted Image. Daya ble to display) [address] [address] ED Clinical Summary Person Information Name: YOLI ANTUNEZ JR Yazmin/[facility] Age: 65 Years : 1955 Sex: Male Language: Emirati PCP: RADHA BURRIS MD Marital Status: Visit [...] 10/18/2020 10:31:18 10/18/2020 10:31:18 10/18/2020 10:31:18 ADDRESS: [address] [place] [id number] PHYS DOC NOTES: MEDICAL INFORMATION: Prescriptions Given: [...] days 10/21/2020 With: Address: When: RADHA BURRIS [facility] [place], [place] [id number] Business (1) In 3 days DIAGNOSIS: AF (paroxysmal atrial fibrillation) Normal [facility] ED Note-Physicianon 10-19-19 ED Note-Physician Basic [...] taken off his metoprolol at that time. Insulation Board Head Saw Operator is Dr. Modi at [facility]. Troponin negative. Electrolytes unremarkable. CBC with baseline [...] normal sinus rhythm. I called the patient's pilot control operator helper Dr. Joshi. We discussed the patient's history, presentation, diagnostic work-up, vitals. After this discussion he reports the patient is okay to follow-up with him as an outpatient. He will call the patient and schedule a pacemaker visit. I discussed the pilot control operator helper recommendations with the patient. He would like discharge home. I did offer the patient admission for further work-up and treatment for his chest discomfort which he declined. He does not wish to stay for second troponin level. Return precautions were discussed. He was instructed follow-up with his primary care doctor and pilot control operator helper. Patient expresses understanding of agreement this plan. [...] IV Disposit (more content not included)... Normal [facility] Comment on above: Result Comment: Elec [...] diagnosed with: ? Electrocardiogram (ECG). ? Ambulatory surveillance manager. This device records your heartbeats for 24 [...] a stroke (more content not included)... Normal [facility] ED Patient Summaryon 021 ED Patient Summary (Inserted Image. Daya ble to display) [place] [address] Patient Discharge Instructions Person Information Name: YOLI ANTUNEZ JR Age: 65 Years Arrival Date: 10/18/2020 07:56:12 Discharge Diagnosis: AF (paroxysmal atrial fibrillation) Primary Care Physician: RADHA BURRIS MD Provider Information Primary Provider: Oscar Sandoval DO Advanced Plaster Block Layer:None The exam and treatment you received in the Emergency Department were for an urgent problem and are not intended as complete care. It is important that you follow up with a doctor, nurse practitioner, or physician?s observation assistant for ongoing care. If your symptoms [...] days 10/21/2020 With: Address: When: RADHA BURRIS [address] [place], [place] [id number] [employer] (1) In 3 days In the event that this physician does not participate in your insurance network, please consult with your insurance company to find a nearby participating provider. Patient Education Materials: Atrial Fibrillation A MESSAGE TO ALL PATIENTS REGARDING OPIOIDS PRESCRIPTION OPIOIDS: WHAT YOU NEED TO KNOW Prescription opioids can be used to help relieve ypvudmyw-cc-lexblu pain and are often prescribed following a [...] your heal (more content not included)... Normal [facility] Magnesiumon 10-18-2020 Magnesium [Mass/Vol] 2.0 mg/dL Normal 1.3-2.4 [facility] Comment on above: Performed By: #### 2 085844, [id number], 7685005 ####[facility] [address] [place] [address] Troponin 0 Hr.on 10-18-2020 Troponin I.cardiac [Mass/Vol] 3.00 pg/mL Low 15.90-38.4 0 [facility] Comment on above: Result Comment: The 95% CI (Confidence Interval) PPV (Positive Predictive Value) for myocardial infarction in females is 38 pg/mL, in males 51 pg/mL. The results should be used in conjunction with clinical conditions of myocardial infarction. (Access High Sensitivity Troponin I Instructions For Use, Bret Leonardo, November 2017) Performed By: #### 2 423579, 4474424, [id number] ####[facility] [address] [place] [address] XR Chest Single Viewon 10-18 XR Chest [...] V. Transcribed by: MALINI Technologist: JUWAN Normal [facility] eGFRon 10-18-2020 GFR/1.73 sq M.predicted among blacks MDRD (S/P/Bld) [Vol rate/Area] 57 mL/min/1.73 m2 Low >=59 [facility] Comment on above: Order Comment: Order added by Discern Expert. Result Comment: eGFR is race adjusted. AA=. Performed By: #### 2 016518, [id number], 7866420 ####[facility] [address] [place] [address] GFR/1.73 sq M.predicted among non-blacks MDRD (S/P/Bld) [Vol rate/Area] 47 mL/min/1.73 m2 Low >=59 [facility] Comment on above: Order Comment: Order added by Discern Expert. 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 Kidney failure is indicated at less than 15 mL/min/1.73m2. Performed By: #### 2 167870, [id number], [id number] ####[facility] [address] [place] [address] Coding Summary.on 09-22-2020 Coding Summary. CD:[id number] Gh0bWw+ PGhlYWQ+TP8QVKPbY12dlJKifV7 DC6cNND1PSXQQQDBCUV0QIR8mrH Q3XQjdM7DopwBp TwdvvOMnGT66EFv8AEZ2fUzrAVe kvQ7euKRyH3e9RdAqRS96nT55XI lyMNGzTuD1XuDwkjmmuHYx X5kpOdGzfTBhWsz+PHRhYmxlIHd mSNRnLWacNFBpDzJbqIrnCA3bDe 9yZGVyLWNvbGxhcHNlOiBj o6aaVLVrIQtiZT3iiDydI7XyaMC 0SYRpy3n5Nj02pJZ+ZPUhLCB9lN tmWTwsr014ViYpq1txHVJ7 jTGbKZppSZQ2B69sr5G0QSSkYIQ jULX2wBY1iJ5blGmhgdshM2FddX LcHqV8INV2uMNpeC3ufOeg cizvcT7nPes+C13YSQ9DFAPYDK9 HVxa5T6PlWeyrkKS+AM61WIAnRH 39dEQlqJWlv6mbpFo0DfTv SADlRXY2qGtuPJkbp8TsHCFtF91 koBAuh1R5SJQxjIlrpPPhYqDkmX O5vO2wHOypzuwmj2xsgpbb Icxrq4vxev10zG40R75wOCtbJKE wYNM0ZPEnGZFyoKiqcb6bhK1pCi 8+QRiuz9oud3nxbVt2KoPk KXQitbQiwDpuXVR0d5BnDs15L6H rcRhdx6TfZdb1xn09oOEwb9J3pI T2PZjnCEKxqC2eQXxcBjI2 YUBuJgCxeQ97hQMlIUbsTz2gtMz ixYfnRA8wNCVymdaxHNIodJ7aWN AilRMbhVhoVM7kLDZfemdl k840KnSkEDO5ZKBniHOhO2NkyN0 nYwEmBZJvGZVvH9VztERkBYqgL4 61QVblUpI5RXNutcEwV8Ke BLStfAnyXgQ5o9V1Ce0Bn3Uesoj sJCX1ZOrjXZN4JtBjEmQcHnZ2R7 UlUdt8VFVwmKbgQL9mS6Fy EGLzsigfzmkgmWD2APKcOJAxlS9 5nFCbAEwcAa9ne7O7y754JIOtLI ReuK99Kb0vfResWVTnsDST iD3ksmmmg5sgqglxCmFhIAYcXBd 1BCe0HOXlqPxdDlSvFKT8ExT5HQ J8qCNauA6ffHrntzmosX7t Oyc+K48lvQ4xCND0KJD2dlqeFIC hjfJdPN02DL82E7ZeVnxmxMSybM U+ZXTwpbMwiLstTA2mAeLt s2sff1UcKUgoH3VsJBKjKBrbPqv 8AQUhWHI0sIB4dO0uOQMxNPijq5 Y5mJQ0T1UiftTdun1uo5ne YFEtQVypT07pxICoz2S8JNSyhZC 2IYPorZcjHnXthE07Ztc+PGNvbG fzs1MhRiatg7blb1pwwWr3 JkOnYQFfraPwwCbhVLK8r4EhVt9 0Z52dQQlkFJJtLFXvYQPcDQEziS rxcm5qfS6aMo3+PGNvbCB3 tDP5nF0lYPEaYnC8UBklR979TsT ufCQpWcbdi4glr8ylvXm7KxEkZE WfmfSfdSjkHOZ8o0SnSe86 M67vOIabTNHmGSLoQDObDTWiwEj idn7bzT5sCd2+LS9xk9jjim10qL 48dHI+COAoUIV1fTznSVfx OTOajL6oBOpfGjX3TBJiPcSchA6 4qWYyRAxrPv2qtLzbeRqbBX0lMR Jklsbve734YrKym9wnAYHh dZVbULqxOQU5Q06wq5W8SYLrADK lVJS5aDD9jR9okRpepsroxYJddN vcpyTfwMazRAaoEDxdB293 IHRvcDsnPlBhdGllbnQgTmFtZTo 1T6LkNth0SDMoaVzfDG5uaTXuMK ruZc4ujZfgnJtxLH6aCRHn mhubb051PkSea4gnGJXmlPOqRBb zXOH7Y11ww9T6IXEhBBTmFPJ5uA A2cB5haBvfjosnqLIdsRez lbHjrQejCSltBGcsK195NGHwmAv aWxYuqjJnUCGqnYJ0UM98RQ41bR Plk2D3zBT3U0UaPMNadivf uuetjDU8ZQJyQYMtcR67We7uwGi vJs3lEBZvAVD2ZDJfqEOeG4HckD 4nKbDxPURtLYVnQ8WraRTg HMxiF623DSgnBfX6RGFtzvTdZ9R kBSAvzVwhWjF4r4C6Th2XW6M8WZ 68XL21dIKeg3T4xUB6F1Bv UEFyojhacyyvgRR2BPHaKGOpsR8 6Cg3xhRtzLr1xUDTbCNF1ZRNwtY HoJ3NmsV6dMwYsHJTaDFYy G1IuwUYeUMsfN815EPfsHnC3USS gvkOqU2OhIFUrdQusYjX0p3T1Uq 4IHOf8ZY81GR13wCIvc4Y5 hVV5G1EmJJXyryiatinpqSQ9HOE cPFCgqF98Vs8ofEtfDu3qZXJoAS C8PMFtlQPyO8VkaV8uWxSx JQSyAJDnV7AwtJUwQDxvI423JTm aOuX0WPTvpnPgO7PjLPUwpYodKe S7g9N5Fh5QAMGvXH56BVK5 tIS0MW02QV32R0VbEogorEOquQU +PHRhYmxlIHdpZHRoPScxMDAlJy ElxWrkQB8qRv3bTBJeDMTx tHeueTWnUnQbh0mgAZHcAOtmJV2 poKenL5MnnUR2QVIap3v6Mc36Y0 9zY5DgqLA+VUQlpGN6zBF2 lA6pDnJrKxE2PSjhY108VySliLK dUtbrb7tji9bwkEe1AbZ7XOIqdf TjbQtbFHQ2t0SkUa79F96m IHdpZHRoPSIxNSUiIHZhbGlnbj0 bxN2zOn6+MLHzpTQ1jON3oV8sLk UdIsP8TBnvR249EpZekDYx Bousy2pul5kvbWv9FdWvHWWpvjL myQhyGIO0u1EsXt31M8YldMizg9 DfCei8ia65pMSuz9X2dWD4 K0CkYMLlqflgtVEzjXjgRT6xKGZ loqvaMABlgR3vSIKtO7s6DmEaGz O1NRvkH6YcwwG4CXParNCp DOglESZ4X82df0Y9OSLcBDHnGAD 0yBJ8lI2vkUopvaccdAHyeAqycx KvhJuoBBlgUQklA380FAZz bQyvEECvbS4iUSYmkUYrsOncQZ6 wNTBpbjsnPkFVRFJJVFNIIEpSLC MTUdZVHGBAG4aeJHnlzTJ+ VCKhOJB8oXowATiyVVQqsZ8hJDF wQ7r0LgPiWvL6NLwzV5AtRUZkka vkVz11vP6xYvTyJmI8OVgl O3EaajI9PTVqbFLvEIbsKND4B01 kl8B2BHCpIVVmMFP0qJU4bV5rlS lnbjogbGVmdDsgdmVydGlj NRlkVBvcM232OVBfeGlbCpBuPlA oTxF8ERR3Q9BkGaq3FFQnkTzuPS 5jtMAwILicMs6fnCbjrDmh MZ6lNSRadscdBRUxiL0jYJLjuTI dbUebRV6wAEUwcztgi864AqZjJL O2DUNmvTXuG8KrsL6yKdFj BWOaZVTqZ2SzhJBaNVirT094CIj wDvY2LPEdcpDyL5NcUWKyyUhjSc L0z8B1Ic15SaFCSMArjkob dGQ+XZRxTST7bVlgHEnfNZIzbK7 aPOQfP5v1PjIoApW7STxoT2LlNP ThmgisWj92zK5uKhIhBvL7 LTfrS4XosbB3GUErfDQxKUzcOXP 8C48gt2N5NESyRFVdGPP1mNV6gL 1hbGlnbjogbGVmdDsgdmVy tXktZDaiGMtyH216ASWkyJfxZi5 vuUL9C8PnHxv1MYAjxGkqQH2tbQ HoXSwkCx7tdGugfQrmRQ3b XTYjxutrBHPpyC0lDMHrwURhnPw fOV8jGVNlzdqdf663HiJqESQ2ZC SutJScU5IksG1aNmXfYEFl HXCxR7QvxWPcVWgyD287XPcfSxD 7GTBzarGlM4RpXCDetSgtKbT1u9 N0St4VzFDnI1LoX8z6C4Bo PjwvdHI+DB57GVNkXO84wSDghAJ pp7zagHm5NfHzMMNxOWY7pWddUU trq9XaIJUxD23lsKYwl7D5 DZIhrWzfzTSeNhSukWD8pS5jGLs hwnbtj4eubzzfEpqir0dqpo24lX 65T95zTQwxGMKmEQVtKXEb SGRkhAytku7rpV2zLs3+PGNvbCB 9qCU7iO3nVbKhQkF9VSomQ764Aa EizUHhNtjst9csq2ljzZr6 JvHiHELfswXsdRjhDDA5m6LtQf6 1X58lBYqaCRLkYSDiZFUxVIWeiN abda6hhL9iSy3+EB4ty2ep op33eK09sDT+LGPdJER2uWzkSWx sSFDwkC0tXXstXqK6ODNcZhXviM 24bIYjKAcgUy6shCgsrAfn PP0kHHCaflznp259VbNwz2mnYXQ uiJYdAEfxOUE1W49yu6X5MQZmFY TaWMX1pRO4pG0piVinorxi lDZlkIvwrgKxgYapMDmsPDmuC45 4EVQlmFnfZqEqbNZaY6srisRFMT 1lOjwvdGQ+XUYaAOI4bAsz OEbgXJAvcK6nEUGxF3x4NiTwZpC 7LEvtZ5XtmnO0QOKdkRWsLTWlrB ILfU1kniedn1qmhguxAfOq XLMrYGa7HYu2GSKjfPdyBvItOCS 4LaW8XVP6cTCluN0ccZfqdjzbqX 9wOyc+RklOOjwvdGQ+PHRk JIZ2hVqnLFatGYUvhK8bDTEyZ6e 9BsAuNjR3APpeV5MqaxU8DAFxeK ZmRKXhdMZRhZ8nekxlu2ym sowoNkBzVQPrTPk9KEb8UTEtkRb sKeRlIWK9PiP4YBF0kQKqkY1zjR jczbyxrV2tIam+TVJOOjwv dGQ+FOOgPIY0eOzqGNeyPNQkaE2 hFABfC6h8CdTrWtE0MOdrF1Wzbc N4ZJZfcBHlZOPwwEZBiZ0n pvqco0nvlslrAyJdGZCtXWn2JOy 5EDVexFwsApTwRLR4KpD3XXZ8bQ ZfyC6kvFtsykfnoB5yTbh+ ATC7MDC5VF35NL11Q1NcOtbnnXV ibGU+PHRhYmxlIHdpZHRoPScxMD CdBhQejNwnHH1oEt6hHMZt LWNv (more content not included)... Normal [facility] Auto Diffon 09-13-2020 Basophils/100 WBC (Bld) 0.6 % Normal 0.0-2.0 [facility] Comment on above: Order Comment: Order Added by Discern Expert. Performed By: #### 1 4890012, 5944057, 87565434, 9439491, 6005288 #### [facility] [address] [place] [address] Basophils/Leukocytes Auto (Bld) [Pure # fraction] 0.0 E9/L Normal 0.0-0.2 [facility] Comment on above: Order Comment: Order Added by Discern Expert. Performed By: #### 1 8349997, 3921554, 86933701, 3233126, 8576082 #### [facility] [address] [place] [address] Eosinophils/100 WBC (Bld) 2.9 % Normal 0.0-8.0 [facility] Comment on above: Order Comment: Order Added by Discern Expert. Performed By: #### 1 3840803, 6715392, 97920929, 2147343, 1437841 #### [facility] [address] [place] [address] Eosinophils/Leukocyt es Auto (Bld) [Pure # fraction] 0.2 E9/L Normal 0.0-0.5 [facility] Comment on above: Order Comment: Order Added by Discern Expert. Performed By: #### 1 2944677, 0657477, 08887085, 4898698, 8985945 #### [facility] [address] [place] [address] Lymphocytes/100 WBC (Bld) 27.2 % Normal 14.0-50.0 [facility] Comment on above: Order Comment: Order Added by Discern Expert. Performed By: #### 1 1007396, 2544514, 44523943, 3442833, 3448550 #### [facility] [address] [place] [address] Lymphocytes/Leukocyt es Auto (Bld) [Pure # fraction] 2.0 E9/L Normal 1.0-4.0 [facility] Comment on above: Order Comment: Order Added by Discern Expert. Performed By: #### 1 5191376, 3738022, 56563569, 3796588, 1626591 #### [facility] [address] [place] [address] Monocytes/100 WBC (Bld) 7.9 % Normal 4.0-14.0 [facility] Comment on above: Order Comment: Order Added by Perry Expert. Performed By: #### 1 8555730, 0921314, 22136032, 7292801, 7228335 #### [facility] [address] [place] [address] Monocytes/Leukocytes Auto (Bld) [Pure # fraction] 0.6 E9/L Normal 0.2-1.0 [facility] Comment on above: Order Comment: Order Added by Perry Expert. Performed By: #### 1 9739413, 2725342, 99603066, 6380161, 8736824 #### [facility] [address] [place] [address] Neutrophils/100 WBC (Bld) 61.4 % Normal 36.0-75.0 [facility] Comment on above: Order Comment: Order Added by Perry Expert. Performed By: #### 1 7978032, 2807295, 95670951, 8241308, 3577710 #### [facility] [address] [place] [address] Neutrophils/Leukocyt es Auto (Bld) [Pure # fraction] 4.5 E9/L Normal 2.0-7.5 [facility] Comment on above: Order Comment: Order Added by Perry Expert. Performed By: #### 1 9260602, 2329026, 54579865, 1170442, 8941533 #### [facility] [address] [place] [address] BMPon 09-13-2020 Anion gap [Moles/Vol] 13 mmol/L Normal 6-16 [facility] Comment on above: Performed By: #### 1 9299875, 6811291, 59468173, 4712655, 0818906 #### [facility] [address] [place] [address] Calcium [Mass/Vol] 7.0 mg/dL Abnormal 8.9-11.1 [facility] Comment on above: Result Comment: Crit ical Result verified by repeat analysis\Critical Result S_CA.0 Called to [facility] ER by QUAN SWEET And Read Back For Confirmation at: 09/13/2020 09:41:51 Performed By: #### 1 6372899, 7383059, 47142455, 0955783, 9527446 #### [facility] [address] [place] [address] Chloride [Moles/Vol] 110 mmol/L Normal 101-111 [facility] Comment on above: Performed By: #### 1 1170267, 6752702, 44453167, 6064349, 4952395 #### [facility] [address] [place] [address] CO2 [Moles/Vol] 22 mmol/L Normal 21-31 [facility] Comment on above: Performed By: #### 1 5020979, 6628408, 42913774, 3216855, 4145479 #### [facility] [address] [place] [address] Creatinine [Mass/Vol] 1.5 mg/dL High 0.5-1.3 [facility] Comment on above: Performed By: #### 1 5370646, 9533435, 78222147, 8135661, 7772561 #### [facility] [address] [place] [address] Glucose [Mass/Vol] 111 mg/dL Normal 55-199 [facility] Comment on above: Result Comment: If t his glucose result represents a fasting glucose, interpretation should refer to the following reference range: 55-99 mg/dL Performed By: #### 1 8180618, 2270551, 69015597, 1765720, 4198527 #### [facility] [address] [place] [address] Potassium [Moles/Vol] 4.2 mmol/L Normal 3.5-5.3 [facility] Comment on above: Performed By: #### 1 1661100, 5234693, 74063412, 0265556, 7255603 #### [facility] [address] [place] [address] Sodium [Moles/Vol] 141 mmol/L Normal 135-145 [facility] Comment on above: Performed By: #### 1 6485705, 6150260, 84881636, 3460327, 3751289 #### [facility] [address] [place] [address] Urea nitrogen [Mass/Vol] 26 mg/dL High 5-21 [facility] Comment on above: Performed By: #### 1 5890752, 1052741, 31980542, 8380896, 2489537 #### [facility] [address] [place] [address] Urea nitrogen/Creatinine [Mass ratio] 17 No Units Normal 10-20 [facility] Comment on above: Performed By: #### 1 0305871, 7556527, 40801067, 4412835, 9496352 #### [facility] [address] [place] [address] CBC w/ Auto Diffon Erythrocyte distribution width (RBC) [Ratio] 15.3 % High 10.9-14.2 [facility] Comment on above: Performed By: #### 1 1418397, 3618116, 67049582, 4365271, 8871621 #### [facility] [address] [place] [address] Hematocrit (Bld) [Volume fraction] 34.6 % Low 37.7-49.0 [facility] Comment on above: Performed By: #### 1 8514763, 3108082, 98207124, 0614253, 6366313 #### [facility] [address] [place] [address] Hemoglobin (Bld) [Mass/Vol] 11.4 g/dL Low 13.5-17.5 [facility] Comment on above: Performed By: #### 1 2557344, 8843300, 93813308, 4858796, 8352200 #### [facility] [address] [place] [address] MCH (RBC) [Entitic mass] 26.9 pg Low 27.0-34.0 [facility] Comment on above: Performed By: #### 1 7274787, 4084587, 44132724, 1672060, 4228652 #### [facility] [address] [place] [address] MCHC (RBC) [Mass/Vol] 32.9 g/dL Normal 31.4-36.0 [facility] Comment on above: Performed By: #### 1 8527167, 0271567, 64278754, 1111970, 7540563 #### [facility] [address] [place] [address] MCV (RBC) [Entitic vol] 81.8 fL Normal 80.0-100.0 [facility] Comment on above: Performed By: #### 1 5377425, 2898480, 68429974, 8141401, 1952788 #### [facility] [address] [place] [address] Platelet mean volume (Bld) [Entitic vol] 9.4 fL Normal 6.4-10.8 [facility] Comment on above: Performed By: #### 1 3041772, 5765969, 23321828, 4726396, 2872793 #### [facility] [address] [place] [address] Platelets (Bld) [#/Vol] 237.0 E9/L Normal 150.0-500. 0 [facility] Comment on above: Performed By: #### 1 1900546, 9270665, 95079833, 7371516, 9886708 #### [facility] [address] [place] [address] RBC (Bld) [#/Vol] 4.2 E12/L Low 4.3-5.9 [facility] Comment on above: Performed By: #### 1 1268519, 0608512, 21044667, 7372266, 0119170 #### [facility] [address] [place] [address] WBC corrected for nucl RBC Auto (Bld) [#/Vol] 7.3 E9/L Normal 4.0-11.0 [facility] Comment on above: Performed By: #### 1 4753490, 0308287, 67422085, 3399914, 1718109 #### [facility] [address] [place] [address] CT Head or Brain w/o Contras ton [...] Shirley MD Transcribed by: MALINI Technologist: Normal [facility] Capillary Glucose POCon 08-21 Glucose [Mass/Vol] 110 mg/dL High 55-99 [facility] Comment on above: Performed By: #### 2 [id number] ####[facility] [address] [place] [address] Consent To Leave AMAon 09-13 Consent To Leave AMA [id number]#[id number]:127 Normal [facility] Consent for Treatmenton 08-21 Consent for Treatment [id number]:127 Normal [facility] Discharge Instructionson Discharge Instructions [id number]:127 Normal [facility] ED Clinical Summaryon 2020 ED Clinical Summary (Inserted Image. Daya ble to display) [address] [address] ED Clinical Summary Person Information Name: HARMONY JR YOLI Richelle Yazmin/[facility] Age: 65 Years : 1955 Sex: Male Language: Emirati PCP: RADHA BURRIS MD Marital Status: Visit [...] 09/13/2020 10:52:16 09/13/2020 10:52:16 09/13/2020 10:52:16 ADDRESS: [address] [place] [phone] PHYS DOC NOTES: MEDICAL INFORMATION: Prescriptions Given: [...] Follow up: With: Address: When: Tono Castaneda [address] [place] [id number] [phone] Business (1) In 1 day 09/14/2020 With: Address: When: RADHA BURRIS [address] [place], [place] [phone] Business (1) In 3 days DIAGNOSIS: Angina pectoris; Cephalgia Normal [facility] ED Note-Nursingon 09-13-2020 ED Note-Nursing dc instructions revi ewed, pt verbalized understanding. Normal [facility] ED Note-Nursing Dr. Low spoke wi th pt., pt does not want to be admitted, AMA paperwork filled out. 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 Normal [facility] ED Note-Nursing Thomas from pharmacy in and speaking with pt about his med list, pt informed he is TBA Normal [facility] ED Note-Physicianon 09-14-19 ED Note-Physician Basic [...] had multiple ablations and sees cardiology in [place]. 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 The patient wishes [...] and still (more content not included)... Normal [facility] Comment on above: Result Comment: Elec tronically Signed By: Bhavesh Low DO\.dionne\Date and Time Signed: 09/13/20 10:42 EDT ED Patient Education Noteon 09-13-2020 ED Patient Education Note Normal [facility] ED Patient Summaryon 021 ED Patient Summary (Inserted Image. Daya ble to display) [place] [id number] Patient Discharge Instructions Person Information Name: YOLI ANTUNEZ JR Age: 65 Years Arrival Date: 09/13/2020 08:43:38 Discharge Diagnosis: Angina pectoris; Cephalgia Primary Care Physician: RADHA BURRIS MD Provider Information Primary Provider: Bhavesh Low DO Advanced Plaster Block Layer:None The exam and treatment you received in the Emergency Department were for an urgent problem and are not intended as complete care. It is important that you follow up with a doctor, nurse practitioner, or physician?s observation assistant for ongoing care. If your symptoms [...] Follow-up Instructions: With: Address: When: Tono Castaneda [address] [place], [place] [phone] [facility] (1) In 1 day 09/14/2020 With: Address: When: RADHA BURRIS [facility] [place], [place] [phone] [employer] (1) In 3 days In the event that this physician does not participate in your insurance network, please consult with your insurance company to find a nearby participating provider. Patient Education Materials: A MESSAGE TO ALL PATIENTS REGARDING OPIOIDS PRESCRIPTION OPIOIDS: WHAT YOU NEED TO KNOW Prescription opioids can be used to help relieve byxustyp-ie-geqwgy pain and are often prescribed following a [...] be struggling with addiction, tell your health critical care clinical nurse specialist (more content not included)... [facility] Monitor Recordon 09-13-2020 Monitor Record [id number]:127 Normal [facility] Monitor Record [id number]:127 Normal [facility] Troponin 0 Hr.on 09-13-2020 Troponin I.cardiac [Mass/Vol] 2.70 pg/mL Low 15.90-38.4 0 [facility] Comment on above: Result Comment: The 95% CI (Confidence Interval) PPV (Positive Predictive Value) for myocardial infarction in females is 38 pg/mL, in males 51 pg/mL. The results should be used in conjunction with clinical conditions of myocardial infarction. (Access High Sensitivity Troponin I Instructions For Use, [employer], November 2017) Performed By: #### 1 [id number], 0576555, 95400168, 7379206, 6493403 #### [facility] [address] [place] [address] XR Chest Single Viewon 09-13 XR Chest [...] Oren Ashby M.D. Transcribed by: MALINI Technologist: [facility] Normal [facility] eGFRon 09-13-2020 GFR/1.73 sq M.predicted among blacks MDRD (S/P/Bld) [Vol rate/Area] 57 mL/min/1.73 m2 Low >=59 [facility] Comment on above: Order Comment: Order added by Discern Expert. Result Comment: eGFR is race adjusted. AA=. Performed By: #### 1 3994821, 2417660, 64489581, 2900675, 9118457 #### [facility] [address] [place] [address] GFR/1.73 sq M.predicted among non-blacks MDRD (S/P/Bld) [Vol rate/Area] 47 mL/min/1.73 m2 Low >=59 [facility] Comment on above: Order Comment: Order added by Discern Expert. 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 Kidney failure is indicated at less than 15 mL/min/1.73m2. Performed By: #### 1 2804769, 3786528, 22524423, 4738752, 0880422 #### [facility] [address] [place] [address] Coding Summary.on 01-25-2020 Coding Summary. CODING DATE: 020 FINAL [facility] DSCH STATUS: Home (Routine DC) PAYOR: Medicare [...] Revised Date Saved: 01/25/2020 02:44 pm Normal [facility] Discharge Instructionson Discharge Instructions [id number]:127 Normal [facility] Auto Diffon 01-19-2020 Basophils/100 WBC (Bld) 0.8 % Normal 0.0-2.0 [facility] Comment on above: Order Comment: Order Added by Discern Expert. Performed By: #### 2 900986, 90004596, 2833555, 57564119, 80887220, 5840510 ####[facility] [address] [place] [address] Basophils/Leukocytes Auto (Bld) [Pure # fraction] 0.1 E9/L Normal 0.0-0.2 [facility] Comment on above: Order Comment: Order Added by Discern Expert. Performed By: #### 2 900631, 17724549, 6382486, 04665064, 53388183, 4309981 ####[facility] [address] [place] [address] Eosinophils/100 WBC (Bld) 4.0 % Normal 0.0-8.0 [facility] Comment on above: Order Comment: Order Added by Discern Expert. Performed By: #### 2 741699, 21057677, 3816370, 84398330, 31533272, 1900744 ####[facility] [address] [place] [address] Eosinophils/Leukocyt es Auto (Bld) [Pure # fraction] 0.3 E9/L Normal 0.0-0.5 [facility] Comment on above: Order Comment: Order Added by Discern Expert. Performed By: #### 2 256279, 76970367, 9510233, 19477882, 53193498, 3934012 ####[facility] [address] [place] [address] Lymphocytes/100 WBC (Bld) 21.7 % Normal 14.0-50.0 [facility] Comment on above: Order Comment: Order Added by Discern Expert. Performed By: #### 2 176791, 53780595, 3113854, 25439602, 45428541, 6451500 ####[address] [place] [address] Lymphocytes/Leukocyt es Auto (Bld) [Pure # fraction] 1.5 E9/L Normal 1.0-4.0 [facility] Comment on above: Order Comment: Order Added by Discern Expert. Performed By: #### 2 607949, 69622913, 5703081, 07091258, 29779282, 4729651 ####[address] [address] Monocytes/100 WBC (Bld) 7.2 % Normal 4.0-14.0 [facility] Comment on above: Order Comment: Order Added by Perry Expert. Performed By: #### 2 596700, 65664372, 6529300, 24810207, 87355671, 8307367 ####[address] [address] Monocytes/Leukocytes Auto (Bld) [Pure # fraction] 0.5 E9/L Normal 0.2-1.0 [facility] Comment on above: Order Comment: Order Added by Perry Expert. Performed By: #### 2 788266, 89780453, 8737704, 99410910, 74023293, 2962641 ####[address] [address] Neutrophils/100 WBC (Bld) 66.3 % Normal 36.0-75.0 [facility] Comment on above: Order Comment: Order Added by Perry Expert. Performed By: #### 2 872245, 25378388, 1322372, 83392255, 75920224, 4060484 ####[address] [place] [address] Neutrophils/Leukocyt es Auto (Bld) [Pure # fraction] 4.7 E9/L Normal 2.0-7.5 [facility] Comment on above: Order Comment: Order Added by Perry Expert. Performed By: #### 2 075942, 65048695, 4017001, 73766336, 90350231, 3631867 ####[facility] [address] [place] [address] BMPon 01-19-2020 Creatinine [Mass/Vol] 1.3 mg/dL Normal 0.5-1.3 [facility] Comment on above: Performed By: #### 2 195361, 23364711, 7885205, 63189400, 73913249, 8649039 ####[facility] [address] [place] [address] Urea nitrogen [Mass/Vol] 21 mg/dL Normal 5-21 [facility] Comment on above: Performed By: #### 2 717515, 02352174, 0226671, 27475028, 17307652, 8503756 ####[facility] [address] [place] [address] Urea nitrogen/Creatinine [Mass ratio] 16 No Units Normal 10-20 [facility] Comment on above: Performed By: #### 2 995690, 99448255, 4892251, 56934558, 40375221, 1135573 ####[facility] [address] [place] [address] Anion gap [Moles/Vol] 13 mmol/L Normal 6-16 [facility] Comment on above: Performed By: #### 2 583359, 30251128, 1978956, 68233578, 80558405, 7024704 ####[facility] [address] [place] [address] Calcium [Mass/Vol] 7.2 mg/dL Low 8.9-11.1 [facility] Comment on above: Performed By: #### 2 422829, 50144796, 7983815, 19400874, 44068475, 1110229 ####[facility] [address] [place] [address] Chloride [Moles/Vol] 107 mmol/L Normal 101-111 [facility] Comment on above: Performed By: #### 2 769026, 77404383, 9306087, 99320894, 52011147, 8462201 ####[facility] [address] [place] [address] CO2 [Moles/Vol] 23 mmol/L Normal 21-31 [facility] Comment on above: Performed By: #### 2 648167, 62451330, 7778324, 74248433, 82119348, 7544458 ####[facility] [address] [place] [address] Glucose [Mass/Vol] 114 mg/dL Normal 55-199 [facility] Comment on above: Result Comment: If t his glucose result represents a fasting glucose, interpretation should refer to the following reference range: 55-99 mg/dL Performed By: #### 2 353321, 89893805, 7318226, 31486529, 41134471, 2155745 ####[facility] [address] [place] [address] Potassium [Moles/Vol] 3.3 mmol/L Low 3.5-5.3 [facility] Comment on above: Performed By: #### 2 563936, 08089682, 3697235, 78646775, 26083338, 0294485 ####[facility] [address] [place] [address] Sodium [Moles/Vol] 140 mmol/L Normal 135-145 [facility] Comment on above: Performed By: #### 2 697623, 19221357, 2577477, 52995906, 78582039, 7734521 ####[facility] [address] [place] [address] CBC w/ Auto Diffon 0 Erythrocyte distribution width (RBC) [Ratio] 14.6 % High 10.9-14.2 [facility] Comment on above: Performed By: #### 2 905732, 15774883, 9504653, 59904085, 24662143, 9320057 #### [facility] [address] [place] [address] Hematocrit (Bld) [Volume fraction] 38.2 % Normal 37.7-49.0 [facility] Comment on above: Performed By: #### 2 865006, 46301723, 4495886, 41701593, 29574360, 0940787 #### [facility] [address] [place] [address] Hemoglobin (Bld) [Mass/Vol] 12.7 g/dL Low 13.5-17.5 [facility] Comment on above: Performed By: #### 2 726707, 51553674, 0373161, 51405163, 34683040, 3181366 #### [facility] [address] [place] [address] MCH (RBC) [Entitic mass] 27.2 pg Normal 27.0-34.0 [facility] Comment on above: Performed By: #### 2 894321, 01884028, 3289125, 05072113, 34846420, 8384950 #### [facility] [address] [place] [address] MCHC (RBC) [Mass/Vol] 33.2 g/dL Normal 31.4-36.0 [facility] Comment on above: Performed By: #### 2 260484, 76923354, 7135209, 63893788, 79567527, 5455043 #### [facility] [address] [place] [address] MCV (RBC) [Entitic vol] 82.1 fL Normal 80.0-100.0 [facility] Comment on above: Performed By: #### 2 930400, 29799947, 1630403, 74683760, 55288132, 9813600 #### [facility] [address] [place] [address] Platelet mean volume (Bld) [Entitic vol] 8.2 fL Normal 6.4-10.8 [facility] Comment on above: Performed By: #### 2 881936, 59345788, 3420769, 67080821, 51645122, 3423678 #### [facility] [address] [place] [address] Platelets (Bld) [#/Vol] 226.0 E9/L Normal 150.0-500. 0 [facility] Comment on above: Performed By: #### 2 484650, 04457254, 5719283, 76921122, 70012677, 1934670 #### [facility] [address] [place] [address] RBC (Bld) [#/Vol] 4.7 E12/L Normal 4.3-5.9 [facility] Comment on above: Performed By: #### 2 006312, 94378054, 1442367, 23833699, 53598121, 1980271 #### [facility] [address] [place] [address] WBC corrected for nucl RBC Auto (Bld) [#/Vol] 7.1 E9/L Normal 4.0-11.0 [facility] Comment on above: Performed By: #### 2 366994, 51890849, 8625109, 32281989, 19506686, 8627052 #### [facility] [address] [place] [address] CTA Headon 01-19-2020 CTA Head Exam Date/Time: [...] 370 Contrast amount in ml's: 70 Normal [facility] CTA Neckon 01-19-2020 CTA Neck Exam [...] 370 Contrast amount in ml's: 70 Normal [facility] Capillary Glucose POCon 12-22 Glucose [Mass/Vol] 111 mg/dL High 55-99 [facility] Comment on above: Result Comment: Erika heart RN/MD Performed By: #### 2 [id number] ####[facility] [address] [place] Consent for Treatmenton 12-22 Consent for Treatment [id number]:127 Normal [facility] ED Clinical Summaryon 2019 ED Clinical Summary (Inserted Image. Daya ble to display) [address] [address] ED Clinical Summary Person Information Name: YOLI ANTUNEZ JR [facility] Age: 64 Years : 1955 Sex: Male Language: Emirati PCP: RADHA BURRIS MD Marital Status: Visit [...] 01/19/2020 17:29:31 01/19/2020 17:29:31 01/19/2020 17:29:31 ADDRESS: [address] [place] [id number] PHYS DOC NOTES: MEDICAL INFORMATION: Prescriptions Given: [...] Follow up: With: Address: When: Earle Jon [address] [place] [address] [facility] () In 3 days 01/22/2020 With: Address: When: Follow-up with your neurologist as directed at [facility] In 3 days 01/22/2020 DIAGNOSIS: Abnormal cardiac enzyme level; Aphasia; Chest pain Normal [facility] ED Note-Physicianon 01-19-20 ED Note-Physician Basic [...] . He was undergoing a procedure at [facility] for ablation for his atrial fibrillation. Patient [...] He was called by the neurologist at [facility] 1 hour prior to arrival and was [...] she cannot recall. He has been taking fjcl-mqy-tlpagsv medications for his headache as well and [...] me he just underwent full work-up at [facility] including negative MRI. He is not exactly sure why the neurologist sent the patient here today for CT angiogram but it is negative. He did request copies of the imaging and I did provide him with this on disc and we sent them electronically to [facility] as well. He is discharged [...] Basic Metabolic Panel CBC w/ Auto Diff Denver Stroke Scale Communication Order Physician to Nursing [...] Jon In 3 days 01/22/2020 EDT [address] [place] [address]- Business (1) Additional Instructions: (more content not included)... Normal [facility] Comment on above: Result Comment: Elec [...] Document Reviewed: 11/11/2008 ExitCare? Patient Information ?2015 [employer]. This information is not intended to replace [...] of t (more content not included)... Normal [facility] ED Patient Summaryon 020 ED Patient Summary (Inserted Image. Daya ble to display) [address] [address] Patient Discharge Instructions Person Information Name: YOLI ANTUNEZ JR Age: 64 Years [facility]: [id number] Arrival Date: 01/19/2020 15:06:59 Discharge Diagnosis: Abnormal cardiac enzyme level; Aphasia; Chest pain Primary Care Physician: RADHA BURRIS MD Provider Information Primary Provider: Bhavesh Low DO Advanced Plaster Block Layer:None The exam and treatment you received in the Emergency Department were for an urgent problem and are not intended as complete care. It is important that you follow up with a doctor, nurse practitioner, or physician?s observation assistant for ongoing care. If your symptoms [...] Follow-up Instructions: With: Address: When: Earle Jon [address] [place] [address] [facility] (1) In 3 days 01/22/2020 With: Address: When: Follow-up with your neurologist as directed at [facility] In 3 days 01/22/2020 In the event that this physician does not participate in your insurance network, please consult with your insurance company to find a nearby participating provider. Patient Education Materials: Chest Pain (Nonspecific); Aphasia A MESSAGE TO ALL PATIENTS REGARDING OPIOIDS PRESCRIPTION OPIOIDS: WHAT YOU NEED TO KNOW Prescription opioids can be used to help relieve gaclgylz-lx-zzmuqm pain and are often prescribed following a [...] with addiction (more content not included)... Normal [facility] PT & PTTon 01-19-2020 aPTT Coag (PPP) [Time] 36.5 second(s) Normal 25.1-36.5 [facility] Comment on above: Result Comment: Hepa rin therapeutic range (represented by Anti-Factor Xa activity of 0.2 - 0.4 U/mL) corresponds to PTT of 56.6 - 109.0 sec. Performed By: #### 2 372001, 82368228, 2554144, 17549624, 86187116, 8590601 ####[facility] [address] [place] [address] INR Coag (PPP) [Relative time] 1.1 {INR} Invalid Interpretation Code [facility] Comment on above: Result Comment: INR results are specifically intended to assess patients stabilized on long-term Anticoagulation therapy suggested INR?s ?Less Intensive Anticoagulation? 2.0 ? 3.0 Conventional Range 3.0 ? 4.5 Performed By: #### 2 412105, 88299925, 5490456, 48527479, 01537974, 9343458 ####[facility] [address] [place] [address] PT Coag (PPP) [Time] 13.1 second(s) High 10.2-12.9 [facility] Comment on above: Performed By: #### 2 697948, 71931106, 8788153, 10153575, 23377364, 2507301 ####[facility] [address] [place] [address] Troponin 0 Hr.on 01-19-2020 Troponin I.cardiac [Mass/Vol] 126.30 pg/mL Abnormal 15.90-38.4 0 [facility] Comment on above: Result Comment: Crit ical Result verified by repeat analysis\ Critical Result I_hsTnI:126.3 Called to NANCY NELSON at by [employer] and read back for confirmation at 01/19/2020 16:14:20 The 95% CI (Confidence Interval) PPV (Positive Predictive Value) for myocardial infarction in females is 38 pg/mL, in males 51 pg/mL. The results should be used in conjunction with clinical conditions of myocardial infarction. (Access High Sensitivity Troponin I Instructions For Use, [employer], November 2017) Performed By: #### 2 512600, 80580834, 7891492, 66373050, 29335968, 2895840 ####[facility] [address] [place] [address] XR Chest Single Viewon 01-18 XR Chest [...] M.D. Transcribed by: MALINI Technologist: BRYANT Van [facility] eGFRon 01-19-2020 GFR/1.73 sq M.predicted among blacks MDRD (S/P/Bld) [Vol rate/Area] mL/min/{1.73_m2} Normal >=59 [facility] Comment on above: Order Comment: Order added by Discern Expert. Result Comment: eGFR is race adjusted. AA=. Performed By: #### 2 523292, 21291275, 4235535, 30613698, 84619135, 3283831 ####[facility] [address] [place] [address] GFR/1.73 sq M.predicted among non-blacks MDRD (S/P/Bld) [Vol rate/Area] 55 mL/min/1.73 m2 Low >=59 [facility] Comment on above: Order Comment: Order added by Discern Expert. 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 Kidney failure is indicated at less than 15 mL/min/1.73m2. Performed By: #### 2 460021, 04852891, 1373571, 30422567, 03433286, 3908619 ####[facility] [address] [place] [address] Creatinineon 04-28-2018 Creatinine mass conc 1.47 mg/dL High 0.50-1.30 [facility] Comment on above: Performed By: #### 1 870830 ####[facility] [address] [place] [address] GFR/1.73 sq M.predicted MDRD vol rate/area 48 mL/min/{1.73_m2} Normal [facility] Comment on above: Result Comment: Inte rpretation for Chronic Kidney Disease:Stages 1&2 >60 Healthy or potential kidney damage.Mild decrease of GFR.Stage 3 30-59 Moderate decrease of GFR.Stage 4 15-29 Severe decrease of GFR.Stage 5 <15 Kidney failure or on dialysis. Performed By: #### 1 102227 ####[facility] [address] [place] [address] Electrolyte Panelon 04-28-19 19 Anion gap 3 molar conc 10 mmol/L Normal 10-20 [facility] Comment on above: Performed By: #### 1 254016 ####[facility] [address] [place] [address] Chloride molar conc 110 mmol/L High 98-107 [facility] Comment on above: Performed By: #### 1 957053 ####[facility] [address] [place] [address] HCO3 molar conc (Bld) 25 mmol/L Normal 21-32 [facility] Comment on above: Performed By: #### 1 753842 ####[facility] [address] [place] [address] Potassium molar conc 4.2 mmol/L Normal 3.5-5.1 [facility] Comment on above: Performed By: #### 1 853451 ####[facility] [address] [place] [address] Sodium molar conc 141 mmol/L Normal 136-145 [facility] Comment on above: Performed By: #### 1 804502 ####[facility] [address] [place] [address] Urea Nitrogenon 04-28-2018 Urea nitrogen mass conc 32 mg/dL High 6-23 [facility] Comment on above: Performed By: #### 1 831416 ####[facility] [address] [place] [address] Vital Signs Date Time Vital Sign Value Performing Clinician Facility 04-16-2023 11:58-0500 Diastolic blood pressure 77 mm[Hg] MD Radha Burris Work Phone: [facility] 04-16-2023 11:58-0500 Heart rate 60 /min MD Radha Burris Work Phone: [facility] 04-16-2023 11:58-0500 Respiratory rate 16 /min MD Radha Burris Work Phone: [facility] 04-16-2023 11:58-0500 SaO2% (BldA) [Mass fraction] 100 % MD Radha Burris Work Phone: [facility] 04-16-2023 11:58-0500 Systolic blood pressure 122 mm[Hg] MD Radha Burris Work Phone: [facility] 04-16-2023 09:35-0500 Body height 198.12 cm MD Radha Burris Work Phone: [facility] 04-16-2023 09:35-0500 Body weight 111.13 kg MD Radha Burris Work Phone: [facility] 03-20-2023 14:00-0500 Body height Imad Asaad Other [facility] Other 03-20-2023 14:00-0500 Body height 195.58 cm MD Radha Burris Work Phone: [facility] 03-20-2023 14:00-0500 Body mass index (BMI) [Ratio] 30.34 kg/m2 Imad Asaad Other [facility] Other 03-20-2023 14:00-0500 Body weight 116.08 kg Imad Asaad Other [facility] [employer] Other 03-20-2023 14:00-0500 Body weight 116.07 kg MD Radha Burris Work Phone: [facility] 03-20-2023 14:00-0500 Diastolic blood pressure 70 mm[Hg] Imad Asaad Other [facility] 03-20-2023 14:00-0500 Systolic blood pressure 120 mm[Hg] Imad Asaad Other [facility] 01-31-2023 14:51-0400 Body mass index (BMI) [Ratio] 28.89 kg/m2 Yossi Chen MD Work Phone: [facility] 01-31-2023 14:51-0400 Body weight 113.4 kg Yossi Chen MD Work Phone: [facility] 12-31-2022 15:12-0400 Body height 198.1 cm Sarbjit Dobrowski LAB[employer]ER [employer] OPER[employer] Work Phone: [facility] 12-31-2022 15:12-0400 Body weight 114.76 kg Sarbjit Dobrowski LABORER [employer] OPERATOR Work Phone: [facility] 12-31-2022 15:12-0400 Diastolic blood pressure 77 mm[Hg] Sarbjit Dobrowski LABORER [employer] OPERATOR Work Phone: [facility] 12-31-2022 15:12-0400 Heart rate 69 /min Sarbjit Dobrowski LABORER [employer] OPERATOR Work Phone: [facility] 12-31-2022 15:12-0400 Systolic blood pressure 123 mm[Hg] Sarbjit Dobrowski LABORER [employer] OPERATOR Work Phone: [facility] 11-29-2022 13:43-0400 Body height 198.12 cm Radha Burris Work Phone: [facility] DO Work Phone: 11-29-2022 13:43-0400 Body mass index (BMI) [Ratio] 29.24 kg/m2 Radha Burris Work Phone: [facility] DO Work Phone: 11-29-2022 13:43-0400 Body surface area Derived from formula 2.49 m2 Radha Burris Work Phone: [facility] DO Work Phone: 11-29-2022 13:43-0400 Body weight 114.76 kg Radha Burris Work Phone: [facility] DO Work Phone: 11-12-2022 14:23-0400 Body height 198.12 cm Radha Burris Work Phone: [facility] DO Work Phone: 11-12-2022 14:23-0400 Body mass index (BMI) [Ratio] 29.82 kg/m2 Radha Burris Work Phone: [facility] DO Work Phone: 11-12-2022 14:23-0400 Body surface area Derived from formula 2.52 m2 Radha Burris Work Phone: [facility] DO Work Phone: 11-12-2022 14:23-0400 Body weight 117.03 kg Radha Burris Work Phone: [facility] DO Work Phone: 11-12-2022 14:23-0400 Diastolic blood pressure 65 mm[Hg] Radha Burris Work Phone: [facility] DO Work Phone: 11-12-2022 14:23-0400 Heart rate 77 /min Radha Burris Work Phone: [facility] DO Work Phone: 11-12-2022 14:23-0400 Systolic blood pressure 104 mm[Hg] Radha Burris Work Phone: [facility] DO Work Phone: 10-18-2022 14:32-0400 Diastolic blood pressure 61 mm[Hg] Infusion 3 Work Phone: [facility] 10-18-2022 14:32-0400 Heart rate 68 /min Infusion 3 Work Phone: [facility] 10-18-2022 14:32-0400 Respiratory rate 14 /min Infusion 3 Work Phone: [facility] 10-18-2022 14:32-0400 Systolic blood pressure 111 mm[Hg] Infusion 3 Work Phone: [facility] 08-30-2022 07:01-0400 Body height 184.4 cm Beth Diego MD Work Phone: [facility] 08-30-2022 07:01-0400 Body mass index (BMI) [Ratio] 33.41 kg/m2 Beth Diego MD Work Phone: [facility] 08-30-2022 07:01-0400 Body weight 113.6 kg Beth Diego MD Work Phone: [facility] 08-17-2022 10:33-0400 Body height 198.12 cm Radha Burris Work Phone: TC-Aapreabywstncr-Zu rma MAC1 [address] Work Phone: 08-17-2022 10:33-0400 Body mass index (BMI) [Ratio] 29.99 kg/m2 Radha Burris Work Phone: CM-Safphpwoiuelrz-He rma MAC1 [address] Work Phone: 08-17-2022 10:33-0400 Body surface area Derived from formula 2.52 m2 Radha Burris Work Phone: JI-Ptfgqdqkhxzxyp-Rc rma MAC[address] Work Phone: 08-17-2022 10:33-0400 Body temperature 97.8 [degF] Radha Burris Work Phone: LC-Gakcqaizijwwhz-Jc rma [address] Work Phone: 08-17-2022 10:33-0400 Body weight 117.71 kg Radha Burris Work Phone: LF-Yralwzeqddqxrz-Py rma MAC1 [address] Work Phone: 08-17-2022 10:33-0400 Diastolic blood pressure 74 mm[Hg] Radha Burris Work Phone: FA-Isdlvkfjoflodc-Qg rma MAC[address] Work Phone: 08-17-2022 10:33-0400 Heart rate 82 /min Radha Burris Work Phone: BP-Kjrmyapligednw-Xy rma MAC1 [address] Work Phone: 08-17-2022 10:33-0400 Respiratory rate 16 /min Radha Burris Work Phone: ED-Febnsvfwykbasy-Ru rma MAC1 [id number] Work Phone: 08-17-2022 10:33-0400 SaO2% (BldA) [Mass fraction] 98 % Radha Burris Work Phone: ZO-Jwinsacfwajgqc-Ld rma MAC1 302 Work Phone: 08-17-2022 10:33-0400 Systolic blood pressure 111 mm[Hg] Radha Burris Work Phone: GY-Rytwyzokhragfg-Er rma MAC1 302 Work Phone: 07-26-2022 14:25-0400 Diastolic blood pressure 77 mm[Hg] Infusion 3 Work Phone: [facility] 07-26-2022 14:25-0400 Heart rate 88 /min Infusion 3 Work Phone: [facility] 07-26-2022 14:25-0400 Systolic blood pressure 120 mm[Hg] Infusion 3 Work Phone: [facility] 07-17-2022 08:57-0400 Body height 198.12 cm Radha Burris Work Phone: [place] 4100 Work Phone: 07-17-2022 08:57-0400 Body mass index (BMI) [Ratio] 29.08 kg/m2 Radha Burris Work Phone: XK-Tyhaglsisrsvcp-GuAltru [facility] 4100 Work Phone: 07-17-2022 08:57-0400 Body surface area Derived from formula 2.49 m2 Radha Burris Work Phone: [place]-Tkropclonrjjbq-BwAltru [facility] 4100 Work Phone: 07-17-2022 08:57-0400 Body temperature 98.8 [degF] Radha Burris Work Phone: QI-Gfkmfxmmutixdf-DbAltru [facility] 4100 Work Phone: 07-17-2022 08:57-0400 Body weight 114.13 kg Radha Burris Work Phone: XD-Mugzomvfbdneyz-XbAltru [facility] 4102 Work Phone: 01-05-2022 14:08-0400 Respiratory rate 16 /min John Saul MD Work Phone: [facility] [employer] 01-05-2022 09:00-0400 Diastolic blood pressure 80 mm[Hg] John Saul MD Work Phone: [facility] [employer] 01-05-2022 09:00-0400 Heart rate 63 /min John Saul MD Work Phone: [employer] 01-05-2022 09:00-0400 Systolic blood pressure 143 mm[Hg] John Saul MD Work Phone: [facility] [employer] 01-05-2022 07:45-0400 Body temperature 97.9 [degF] John Saul MD Work Phone: [facility] [employer] 01-05-2022 07:45-0400 SaO2% (BldA) [Mass fraction] 98 % John Saul MD Work Phone: [facility] [employer] 01-03-2022 06:00-0400 Body mass index (BMI) [Ratio] 29.47 kg/m2 John Saul MD Work Phone: [employer] 01-03-2022 06:00-0400 Body weight 115.67 kg John Saul MD Work Phone: [employer] 12-31-2021 23:43-0400 Body height 198.1 cm John Saul MD Work Phone: [employer] 10-02-2021 16:00-0400 Body height Thor Corbettky Other [employer] Other 10-02-2021 16:00-0400 Body mass index (BMI) [Ratio] 30.71 kg/m2 Thor Fox Other [employer] Other 10-02-2021 16:00-0400 Body weight 117.48 kg Thor Fox Other [employer] Other 10-02-2021 16:00-0400 Diastolic blood pressure 72 mm[Hg] Thor Fox Other [employer] Other 10-02-2021 16:00-0400 SaO2% (BldA) [Mass fraction] 97 % Thor Fox Other [employer] Other 10-02-2021 16:00-0400 Systolic blood pressure 118 mm[Hg] Thor Fox Other [employer] Other 08-30-2021 10:15-0400 Body height Lashawn Estrada Other [employer] Other 08-30-2021 10:15-0400 Body mass index (BMI) [Ratio] 30.76 kg/m2 Lashawn Estrada Other [employer] Other 08-30-2021 10:15-0400 Body weight 117.66 kg Lashawn Estrada Other [employer] Other 08-30-2021 10:15-0400 Diastolic blood pressure 64 mm[Hg] Lashawn Estrada Other [employer] Other 08-30-2021 10:15-0400 Respiratory rate 18 /min Lashawn Estrada Other [employer] Other 08-30-2021 10:15-0400 SaO2% (BldA) [Mass fraction] 96 % Lashawn Estrada Other [employer] Other 08-30-2021 10:15-0400 Systolic blood pressure 116 mm[Hg] Lashawn Estrada Other [employer] Other 08-03-2021 16:45-0400 Body height Thor Fox Other [employer] Other 08-03-2021 16:45-0400 Body mass index (BMI) [Ratio] 30.73 kg/m2 Thor Corbettky Other [employer] Other 08-03-2021 16:45-0400 Body weight 117.57 kg Thor Ruddy Other [employer] Other 08-03-2021 16:45-0400 Diastolic blood pressure 80 mm[Hg] Thor Ruddy Other [employer] Other 08-03-2021 16:45-0400 SaO2% (BldA) [Mass fraction] 98 % Thor Corbettky Other [employer] Other 08-03-2021 16:45-0400 Systolic blood pressure 122 mm[Hg] Thor Fox Other [employer] Other 03-11-2020 13:30-0500 Body Temperature 98.1 [degF] [address] [facility] [place] 03-11-2020 13:30-0500 BP Diastolic 75 mm[Hg] [facility] [place] [facility] [place] 03-11-2020 13:30-0500 BP Systolic 126 mm[Hg] [address] [place] , [place] 03-11-2020 13:30-0500 Pulse (Heart Rate) 69 /min Malz 3 [place], [place] 03-11-2020 13:30-0500 Respiratory Rate 18 /min Rupinder 3 [place], [place] 03-11-2020 09:45-0500 Pulse Oximetry 99 % Rupinder 3 [place], [place] 03-03-2019 13:16-0500 BMI (Body Mass Index) 28 kg/m2 Chris Luong QV-Nvsolfcjy-Wrdgxln ld 201 Work Phone: 03-03-2019 13:16-0500 Body weight 109.88 kg Chris Luong [place]-Kgmqwzthn-Ubo ffie ld 201 Work Phone: 03-03-2019 13:16-0500 BP Diastolic 80 mm[Hg] Chris Luong EA-Mfhhwjtbx-Azf ffie ld 201 Work Phone: Comment on above: Location: LUE; Position: Sitting 03-03-2019 13:16-0500 BP Systolic 118 mm[Hg] Chris Luong FM-Bauncucqd-Asn ffie ld 201 Work Phone: Comment on above: Location: LUE; Position: Sitting 03-03-2019 13:16-0500 BSA (Body Surface Area) 2.45 m2 Chris Luong PA-Vrmenphzp-Mcstjap ld 201 Work Phone: 03-03-2019 13:16-0500 Height 198.12 cm Chris Luong SB-Ntbjligdy-Wme ffie ld 201 Work Phone: 03-03-2019 13:16-0500 Pulse (Heart Rate) 81 /min Chris Luong MP-Neurology- Sheffie ld 201 Work Phone: 03-03-2019 13:16-0500 Pulse Oximetry 96 % Chris Luong YU-Ncyzuvoph-Xws ffie ld 201 Work Phone: Comment on above: Source: RA Encounters Encounter Date Encounter Type Care Provider Facility Start: 01-20-2024 End: 01-20-2024 ambulatory MATIAS JUAREZ Not Available Start: 01-13-2024 End: 01-13-2024 ambulatory SHIVANI ADAMS Not Available Start: 01-06-2024 End: 01-06-2024 Encounter identifier Donn Ceballos Work Phone: [facility] Start: 01-02-2024 End: 01-02-2024 Office outpatient visit 25 minutes Donn Ceballos Work Phone: [facility] Start: 12-25-2023 End: 12-25-2023 ambulatory [facility] Start: 12-24-2023 End: 12-24-2023 ambulatory RADHA BURRIS Not Available Start: 12-07-2023 End: 12-07-2023 ambulatory ELEONORA LAUREANO Not Available Start: 10-10-2023 End: 10-10-2023 ambulatory [facility] Start: 09-27-2023 ambulatory [facility] Start: 09-01-2023 Letter encounter Radha cantu MD Work Phone: [facility] Start: 08-30-2023 ambulatory [facility] Start: 08-30-2023 End: 08-30-2023 ambulatory [facility] Start: 08-22-2023 End: 08-22-2023 ambulatory [facility] Start: 08-14-2023 End: 08-14-2023 ambulatory COLLIN [facility] Start: 08-07-2023 End: 08-07-2023 ambulatory [facility] Start: 07-18-2023 End: 07-18-2023 ambulatory [facility] Start: 07-11-2023 End: 07-11-2023 ambulatory RADHA BURRIS Not Available Start: 07-11-2023 End: 07-11-2023 ambulatory [facility] Start: 07-09-2023 ambulatory [facility] Start: 07-09-2023 End: 07-09-2023 ambulatory SHUKRI VILCHIS [facility] Start: 06-17-2023 [facility] Start: 06-10-2023 End: 06-10-2023 ambulatory Radha Burris Facility:[facility] Start: 06-10-2023 End: 06-10-2023 ambulatory MD Radha Burris Work Phone: [facility] Work Phone: Start: 06-10-2023 End: 06-10-2023 Patient encounter procedure MD Radha Burris Work Phone: [facility]-CT Scan Main [place] Work Phone: Start: 05-31-2023 Clinisync Result Encounter Generic External Data Provider [facility] External Department Unsolicited Start: 05-31-2023 Clinisync Result Encounter Generic External Data Provider [facility] External Department Unsolicited Start: 05-31-2023 End: 05-31-2023 ambulatory María Pearl APRN.KST OPERATOR Work Phone: Neurology Comment on above: Orthostatic hypotens ion (Primary Dx); [place]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) Start: 05-31-2023 End: 05-31-2023 Telemedicine consultation with patient María Pearl APRN.KST OPERATOR Work Phone: [facility] Start: 05-30-2023 Telephone encounter Charlene Soria [facility] Start: 05-30-2023 End: 05-30-2023 ambulatory SHUKRI MAME [facility] [employer] [employer] [facility] Other Start: 05-26-2023 Letter encounter Radha cantu MD Work Phone: [facility] Start: 2023 End: 2023 [facility] Start: 05-20-2023 End: 05-20-2023 ambulatory Imad Asaad Other [facility] Other Start: 05-20-2023 Telephone encounter Imad Asaad [facility] Start: 05-03-2023 End: 05-03-2023 ambulatory MAYELIN WOLFF Not Available Start: 05-02-2023 End: 05-02-2023 ambulatory MARTÍN JONES Not Available Start: 04-26-2023 End: 04-26-2023 ambulatory Imad Asaad Other [employer] Other Start: 04-26-2023 Telephone encounter Imad Asaad [facility] Start: 04-24-2023 End: 04-24-2023 ambulatory Imad Asaad Other [employer] Other Start: 04-24-2023 Telephone encounter Imad Asaad [facility] Start: 04-23-2023 End: 04-23-2023 ambulatory MATIAS A LARRY Not Available Start: 04-16-2023 End: 04-16-2023 ambulatory Radha Burris Facility:[facility] Start: 04-16-2023 End: 04-16-2023 Admission to same day surgery center MD Radha Burris Work Phone: [facility] Work Phone: Start: 04-16-2023 End: 04-16-2023 ambulatory MD Radha Burris Work Phone: [facility] Work Phone: Start: 04-09-2023 End: 04-09-2023 ambulatory Imad Asaad Other [employer] Other Start: 04-09-2023 Telephone encounter Imad Asaad [facility] Start: 04-03-2023 End: 04-03-2023 ambulatory [facility] Start: 04-01-2023 End: 04-01-2023 ambulatory Imad Asaad Other [facility] [employer] Other Start: 04-01-2023 Telephone encounter Imad Asaad [facility] Start: 03-21-2023 End: 03-21-2023 Office outpatient visit 15 minutes Donn Ceballos Work Phone: [facility] Start: 03-20-2023 End: 03-20-2023 ambulatory Imad Asaad Other [facility] [employer] Other Start: 03-20-2023 Office outpatient ne w 45 minutes Imad Asaad [facility] Start: 03-20-2023 End: 03-20-2023 Patient encounter procedure MD Radha Burris Work Phone: [facility] Work Phone: Start: 03-05-2023 End: 03-05-2023 Emergency department patient visit JAYLYN BENDER [facility] Start: 03-05-2023 ambulatory JACKIE Magana [facility] Start: 02-25-2023 End: 02-25-2023 ambulatory RADHA BURRIS Facility:[facility] Start: 02-25-2023 End: 02-25-2023 ambulatory Skin Biopsy Work Phone: Neurology Start: 02-25-2023 End: 02-25-2023 Patient encounter procedure Skin Biopsy Work Phone: [facility] Start: 02-05-2023 Telephone encounter María Zhao on [employer]KST OPERATOR Work Phone: Neurology Comment on above: Results (Gerri teran ) Start: 02-01-2023 End: 02-02-2023 ambulatory RADHA BURRIS [facility] Start: 02-01-2023 End: 02-01-2023 Subsequent hospital visit by physician Winifred Baker 2 [facility] Comment on above: Left lower quadrant abdominal pain Start: 02-01-2023 End: 02-01-2023 ambulatory [facility] Start: 01-31-2023 End: 02-01-2023 ambulatory [facility] Ambulatory Start: 01-31-2023 End: 01-31-2023 Office outpatient visit 25 minutes Yossi Chen MD Work Phone: [facility] Comment on above: Diarrhea, unspecifie d type (Primary Dx); Left lower quadrant abdominal pain Start: 01-28-2023 ambulatory María Pearl [employer]KST OPERATOR Work Phone: Neurology Comment on above: Tilt Start: 01-28-2023 E-mail encounter fro m caregiver María Pearl [employer]KST OPERATOR Work Phone: [facility] Start: 01-28-2023 Telephone encounter María Zhao on [employer]KST OPERATOR Work Phone: Neurology Comment on above: Results ([facility] ) Start: 01-26-2023 ambulatory María Pearl [employer]KST OPERATOR Work Phone: Neurology Comment on above: Test results Start: 01-24-2023 End: 01-24-2023 ambulatory RADHA BURRIS Facility:[facility] Start: 01-23-2023 End: 01-23-2023 ambulatory RADHA BURRIS Facility:[facility] Start: 01-21-2023 End: 01-21-2023 ambulatory [facility] Start: 12-31-2022 End: 12-31-2022 ambulatory RADHA BURRIS Facility:[facility] Start: 12-31-2022 End: 12-31-2022 Patient encounter procedure Sarbjit Richardson [employer]KST OPERATOR Work Phone: Neurology Comment on above: Autonomic dysfunctio n (Primary Dx); Dizzy spells Start: 12-28-2022 End: 12-28-2022 [facility] Start: 12-13-2022 Postop follow up vis it related to original px Radha Burris Work Phone: -[facility] DO Work Phone: Start: 12-13-[address] Yossi Chambers ity:[id number] Start: 12-10-2022 Chart Update Radha xavier Work Phone: [facility] DO Work Phone: Start: 11-29-2022 Postop follow up vis it related to original px Radha Burris Work Phone: [facility] DO Work Phone: Start: 11-29-[address] Yossi Chambers ity:[id number] Start: 11-22-2022 End: 11-22-2022 Evaluation and management of inpatient Dr. Yossi Chen Facility:[id number] Start: 11-16-2022 Telephone encounter Sarbjit Puentes [employer]KST OPERATOR Work Phone: Neurology Comment on above: Received Outside Med ical Records () Start: 11-12-[address] Yossi Chambers ity:[id number] Start: 10-29-2022 AUDIT Radha xavier Work Phone: QZ-Rffajniugoggba-Imtrjr n Work Phone: Start: 10-26-[address] Arabella Butt Facility:[id number] Start: 10-19-2022 ambulatory Sarbjit gregg [employer]KST OPERATOR Work Phone: Neurology Comment on above: Reaction Start: 10-18-2022 End: 10-18-2022 ambulatory Infusion Main Chair 3 Work Phone: Neurology Comment on above: Chronic migraine wit hout aura, with intractable migraine, so stated, with status migrainosus (Primary Dx) Start: 10-15-2022 End: 10-15-[address] 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 Arabella Butt Facility:[facility] Start: 10-10-2022 Encounter for preprocedural cardiovascular examination Dr. Arabella Butt [facility] Start: 10-09-2022 AUDIT Radha xavier Work Phone: [facility] Work Phone: Start: 10-08-2022 Rx Renewal Radha xavier Work Phone: ZI-Naiuvxhlcvfumq-[facility]jivdf[facility] 4100 Work Phone: Start: 09-25-2022 Office outpatient vi sit 25 minutes Radha Burris Work Phone: JW-Lmknpexzliljnq-Vfmwef n Work Phone: Start: 09-25-2022 JAYLON, Provider : Ruby Daily, Status: Pen, Time: 2:30 PM Radha Burris Work Phone: [facility] Work Phone: Start: 09-25-[address] Ruby Daily Facility:[facility] Start: 09-24-2022 Office outpatient vi sit 10 minutes Radha Burris Work Phone: [place] [address] Work Phone: Start: 09-24-[address] Ranjana Perrin Facility:[id number] Start: 09-13-2022 End: 09-13-[address] Ruby Daily Facility:[facility] Start: 09-04-2022 Office outpatient vi sit 40 minutes Radha Burris Work Phone: [place]-Gsoixqivwcfpui-Fygvcj n Work Phone: Start: 09-04-[address] Ruby Daily Facility:[facility] Start: 08-30-2022 End: 08-30-[address] Ruby Daily Facility:[facility] Start: 08-30-2022 End: 08-30-2022 Subsequent hospital visit by physician Beth Diego MD Work Phone: [facility] Comment on above: Dysphagia, oropharyn geal [...] Start: 08-23-2022 AUDIT Radha xavier Work Phone: ID-Mslcmmayvmmghz-Zevbhx n Work Phone: Start: 08-20-[address] Radha Burris Facility:[facility] Start: 08-17-2022 Current tobacco non-user cad cap copd pv dm Radha Burris Work Phone: YL-Vmkdlsvnknffhl-Dcmfb MAC1 302 Work Phone: Start: 08-17-[address] Arabella Butt Facility:[id number] Start: 08-13-[address] Radha Burris Facility:[id number] Start: 08-13-2022 Patient encounter procedure Radha Burris [facility] Phone[facility] [address] [place] Work Phone: Start: 08-10-[address] Ruby Daily Facility:[id number] Start: 07-31-2022 Office outpatient vi sit 40 minutes Radha Burris Work Phone: CU-Rwdyrmdydciljx-Oqizdx n Work Phone: Start: 07-31-2022 Patient encounter procedure Radha Burris Work Phone: [place]-Jzoyzuccspgssp-Acjckw n Work Phone: Start: 07-31-2022 JAYLON, Provider : Ruby Daily, Status: Pen, Time: 12:30 PM Radha Burris Work Phone: [facility] [address] [place] Work Phone: Start: 07-31-[address] Ruby Daily Facility:[id number] Start: 07-30-[address] Radha Burris Facility:[id number] Start: 07-30-2022 Patient encounter procedure Radha Burris Work Phone: [facility] [address] [place] Work Phone: Start: 07-29-2022 ambulatory Sarbjit gregg APRN.KST OPERATOR Work Phone: Neurology Comment on above: After effects Start: 07-26-2022 End: 07-26-2022 ambulatory Infusion Main Chair 3 Work Phone: Neurology Comment on above: Chronic migraine wit hout aura, with intractable migraine, so stated, with status migrainosus (Primary Dx) Start: 07-21-2022 ambulatory Sarbjit gregg [employer]KST OPERATOR Work Phone: Neurology Comment on above: What's next? Start: 07-18-[address] Ranjana Perrin Facility:[id number] Start: 07-17-2022 Office outpatient vi sit 25 minutes Radha Burris Work Phone: WH-Ortedkvaqcdsct-Iuxjju n Voice Work Phone: Start: 07-17-2022 Patient encounter procedure Radha Burris Work Phone: BR-Iibrevxtgdjeuv-AjzchrQuentin [facility] 4100 Work Phone: Start: 07-17-[address] Ranjana Perrin Facility:[id number] Start: 07-11-2022 ambulatory Sarbjit gregg [employer]KST OPERATOR Work Phone: Neurology Comment on above: Test results Start: 06-04-2022 End: 06-05-[address] AISHWARYA SWAIN Facility:H1 Start: 05-31-2022 ambulatory Sarbjit gregg [employer]KST OPERATOR Work Phone: Neurology Comment on above: Today's visit Start: 05-31-2022 E-mail encounter tobias m caregiver Sarbjit Richardson [employer]KST OPERATOR Work Phone: [facility] Start: 05-31-2022 End: 05-31-2022 Patient encounter procedure Sarbjit Richardson [employer]KST OPERATOR Work Phone: Neurology Comment on above: Chronic migraine wit hout aura, intractable, without status migrainosus (Primary Dx); Aphasia; Other specified transient cerebral ischemias Start: 02-07-2023 Letter encounter Radha cantu MD Work Phone: [facility] Start: 03-22-2022 End: 03-23-2022 ambulatory YANDEL SHEN Facility:H1 Start: 02-05-2022 End: 02-06-[address] MNOO CHRISTIE Facility:H1 Start: 01-09-2022 End: 01-09-[address] LEXI SINGH Facility:H1 Start: 01-01-2022 End: 01-05-2022 Evaluation and management of inpatient JANET FORD [facility] Start: 12-31-2021 End: 01-05-2022 Evaluation and management of inpatient John Saul MD Work Phone: [facility] Renal//Med Surg Comment on above: Acute pancreatitis, unspecified complication status, unspecified pancreatitis type (Primary Dx); Gall stone pancreatitis; EMELIA (acute kidney injury) (HCC) Start: 12-31-2021 End: 01-01-[address] RADHA BURRIS Facility:H1 Start: 12-30-2021 End: 12-31-[address] MAYELIN RODRIGUEZ Facility:H1 Start: 12-29-2021 End: 12-29-[address] VERONICA YOUNG Facility:H1 Start: 12-12-2021 End: 12-13-2021 Evaluation and management of inpatient RADHA BURRIS Facility:[facility] Start: 12-08-2021 End: 12-09-2021 ambulatory YANDEL SHEN Facility:H1 Start: 11-23-2021 Encounter for preprocedural laboratory examination DR MONO CHRISTIE [facility] Start: 11-21-2021 End: 11-22-2021 ambulatory RADHA BURRIS Facility:[facility] Start: 11-17-2021 End: 11-18-[address] MONO CHRISTIE Facility:H1 Start: 11-17-2021 End: 11-18-2021 Encounter for preprocedural laboratory examination DR MONO CHRISTIE Facility:H1 Start: 11-16-2021 End: 11-16-[address] RADHA BURRIS Facility:H1 Start: 11-09-2021 End: 11-10-2021 ambulatory RADHA LEACHHMAN Facility:[facility] Start: 10-03-2021 End: 10-03-[address] Donnell Du Facility: Start: 10-03-2021 End: 10-04-2021 ambulatory YANDEL SHEN Facility:H1 Start: 10-02-2021 End: 10-02-2021 ambulatory Thor Ruddy Other [facility] Other Start: 10-02-2021 Office outpatient vi sit 15 minutes Thor Ruddy [facility] Start: 09-27-2021 End: 09-28-2021 ambulatory YANDEL SHEN Facility: Start: 08-30-2021 End: 08-30-2021 ambulatory Lashawn Estrada Other [facility] Other Start: 08-30-2021 Office outpatient vi sit 15 minutes Lashawn Estrada [facility] Start: 08-15-2021 (Procedure) Short Thor Fox [facility] Start: 08-15-2021 End: 08-15-2021 ambulatory Thor Ruddy Other [facility] Other Start: 08-03-2021 End: 08-03-2021 ambulatory Thor Ruddy Other [facility] Other Start: 08-03-2021 Office outpatient vi sit 25 minutes Thor Ruddy [facility] Start: 07-27-2021 (Procedure) Short Thor Fox [facility] Start: 07-27-2021 End: 07-27-2021 ambulatory Thor Ruddy Other [facility] Other Start: 07-18-2021 (Procedure) Short Thor Fox [facility] Start: 07-18-2021 End: 07-18-2021 ambulatory Thor Ruddy Other [facility] Other Start: 07-03-2021 End: 07-03-2021 Office outpatient visit 15 minutes Donn L [place] Work Phone: [facility] Start: 06-21-2021 End: 06-21-2021 Office outpatient new 30 minutes Donn L Newport Work Phone: [facility] Start: 05-01-2021 End: 05-01-2021 Subsequent hospital visit by physician Olivia [facility] Mike (I-Stat) Work Phone: Radiology Comment on above: Shortness of breath [R06.02] Start: 03-11-2020 End: 03-12-2020 Patient encounter procedure [facility] Start: 03-11-2020 End: 03-11-2020 Subsequent hospital visit by physician Rupinder Infusion Bed 3 [facility]Z OP INFUSION Comment on above: Arrived Start: 02-10-2020 End: 02-10-2020 ambulatory UNKNOWN PROVIDER Facility:[facility] Start: 10-20-2019 Patient encounter procedure Terrell Her RA-Isiybrrorfhezb-AntgbaQuentin [facility] 4100 Work Phone: Start: 09-29-2019 Patient encounter procedure Terrell Her BR-Hbonwrjpfjdhdo-GnmcviQuentin [facility] 4100 Work Phone: Start: 09-28-2019 Patient encounter procedure Terrell Her FU[facility]uihnamuyfpvyo[facility] 4100 Work Phone: Start: 09-21-2019 Patient encounter procedure Terrell Arden LO-Jvaspwnragitqf-KakdmhQuentin [facility] 4100 Work Phone: Start: 09-17-2019 Patient encounter procedure Terrell Her [facility] Work Phone: Start: 09-10-2019 Patient encounter procedure Terrell Her [facility] Work Phone: Start: 06-29-2019 Patient encounter procedure Terrell Her [facility] Work Phone: Start: 03-03-2019 Patient encounter procedure Terrell Her -[facility] 3315 Work Phone: Start: 04-28-2018 Patient [...] 01-01-2022 Assay of troponin quantitative Nohelia Morris [employer] K[employer] OPER[employer] Work Phone: Start: 01-01-2022 LACTATE, SEPSIS Shane Thurston Villalpando DO Work Phone: Start: 01-01-2022 Mri abdomen w/o contrast material Janet Ford [employer] OPER[employer] Work Phone: Start: 01-01-2022 Assay of troponin quantitative Nohelia Morris [employer] KST OPERATOR Work Phone: Start: 01-01-2022 Blood count complete [...] 1996 panel - Serum or Plasma María Paerl [employer] OPER[employer] Work Phone: Start: 01-01-2022 Assay of troponin quantitative Nohelia Morris [employer] OPERATOR Work Phone: Start: 01-01-2022 Assay of troponin quantitative Nohelia Morris [employer] OPERATOR Work Phone: Start: 01-01-2022 LACTATE, SEPSIS Shane Villalpando Work Phone: Start: 01-01-2022 Culture bacterial blood aerobic w/id isolates Nohelia Morris [employer] OPERATOR Work Phone: Start: 01-01-2022 CULTURE, BLOOD 1 Nohelia Morris [employer] OPERATOR Work Phone: Start: 12-12-2021 Antibody screen RADHA BURRIS Comment on above: Performed By: #### [id number] #### [address] Start: 06-21-2021 End: 06-21-2021 Radex spine [...] 04-16-2033 Screening for malignant neoplasm of colon [facility] Start: 01-01-2027 Lipid panel [facility] Start: 03-05-2026 [facility] Start: 01-31-2026 [facility] Scre[facility] Start: 11-21-2025 DIABETES SCREEN DIABETES SCREEN [facility] Start: 11-21-2025 Diabetes Screening Diabetes Screenin g [facility] Start: 03-10-2024 DIABETES SCREEN DIABETES SCREEN [facility] Start: 03-05-2024 Complete blood count Hemoglobin/Constantino tocrit [facility] Start: 03-05-2024 Creatinine measurement Serum Creatin ine [facility] Start: 02-01-2024 Creatinine measurement Basic Metabol ic Panel [facility] Start: 02-01-2024 Pneumococcal Vaccine : 65+ Years (1 - PCV) Pneumococcal Vaccine: 65+ Years (1 - PCV) [facility] Comment on above: Postponed from 05/21 (Patient Refused) Start: 02-01-2024 Serum Creatinine Serum Creatinine [facility] Start: 01-24-2024 BP Controlled (<130/80) BP Controlled (<130/80) [facility] Start: 01-06-2024 Cervical Spine MRI w/o contrast, Complete ([id number]), Body Site: Spine, Sent on: [facility] Start: 01-02-2024 MRI Lumbar Spi ne wo Contrast ([id number]), Body Site: MRI Head/Spine/Chest, Sent on: [facility] Start: 01-01-2024 BP CONTROLLED (<130/80) BP CONTROLLED (<130/80) [facility] Start: 12-22-2023 Covid-19 Vaccine ( season) Covid-19 Vaccine ( season) [facility] Start: 12-22-2023 Influenza vaccination Influenza Vacc ine (#1) [facility] Start: 11-22-2023 SERUM CREATININE SERUM CREATININE [facility] Start: 10-20-2023 Influenza vaccination Influenza Vacc ine (#1) [facility] Healthcare Comment on above: Postponed from 12/21 (Patient Refused) Start: 05-31-2023 BP CONTROLLED (<130/80) BP CONTROLLED (<130/80) [facility] Start: 05-31-2023 End: 08-30-2023 [place]/MIGUEL BETHEA,SER [facility] Work Phone: Comment on above: Expected: 05/31/2023 , Expires: 08/30/2023 Start: 04-22-2023 Advance Directive Discussion Advance Directive Discussion [facility] Start: 04-22-2023 Depression Assessment Depression Ass essment [facility] Start: 04-16-2023 [facility] Start: 03-21-2023 Patient referral Referrals: [facility] Start: 02-01-2023 End: 02-01-2023 Patient encounter procedure 02/01/2023 1:45 PM EDT Appointment [facility] [address] [place] [id number] [facility] Start: 01-31-2023 End: 02-07-2023 Bacteria identified in Stool by Culture Stool Culture, Test of Cure Microbiology Routine Diarrhea, unspecified type Expected: 01/31/2023 (Approximate), Expires: 02/07/[address] [facility] Work Phone: Comment on above: Expected: 01/31/2023 (Approximate), Expires: 02/07/2023 Start: 01-31-2023 End: 02-01-2024 Basic metabolic 2000 panel - Serum or Plasma [facility] Work Phone: Comment on above: Expected: 01/31/2023 (Approximate), Expires: 02/01/2024 Start: 01-31-2023 End: 02-01-2024 CT Abdomen and Pelvis W contrast IV CT abdomen pelvis w IV contrast Imaging STAT Left lower quadrant abdominal pain Expected: 01/31/2023, Expires: 02/01/[address] [facility] Service Area Work Phone: Comment on above: Expected: 01/31/2023 , Expires: 02/01/2024 Start: 01-31-2023 End: 02-07-2023 Stool Pathogen Panel, PCR Stool Pathogen Panel, PCR Microbiology Routine Diarrhea, unspecified type Expected: 01/31/2023 (Approximate), Expires: 02/07/[address] [facility] Work Phone: Comment on above: Expected: 01/31/2023 (Approximate), Expires: 02/07/2023 Start: 01-27-2023 DTaP/Tdap/Td vaccine (2 - Td or Tdap) DTaP/Tdap/Td vaccine (2 - Td or Tdap) [facility] Start: 01-27-2023 DTaP/Tdap/Td Vaccine s (2 - Td or Tdap) DTaP/Tdap/Td Vaccines (2 - Td or Tdap) [facility] Start: 01-27-2023 Tetanus vaccination Tetanus (T d or Tdap) [facility] Start: 01-27-2023 Urine microalbumin profile [facility] Start: 01-01-2023 Diabetes mellitus screening Diabetes Screening [facility] Start: 01-01-2023 Hemoglobin A1c measurement A1C test (Diabetic or Prediabetic) [facility] Start: 01-01-2023 HEMOGLOBIN/HEMATOCRIT HEMOGLOBIN/HEM ATOCRIT [facility] Start: 01-01-2023 Hepatitis B surface antibody level LDL Cholesterol [facility] Start: 12-21-2022 Covid-19 Vaccine ( season) Covid-19 Vaccine () [facility] Start: 12-21-2022 Influenza vaccination [facility] Start: 12-13-2022 FUV, Provider: Yossi Chen, Status: Pen, Time: 10:45 AM FUV, Provider: Yossi Chen, Status: Pen, Time: 10:45 AM -[facility] DO Work Phone: Start: 11-12-2022 NPV, Provider: Yossi Chen, Status: Pen, Time: 2:45 PM NPV, Provider: Yossi Chen, Status: Pen, Time: 2:45 PM [facility] Work Phone: Start: 10-26-2022 VIRFUVHOME, Provider : Arabella Terry, Status: Pen, Time: 3:00 PM VIRFUVHOME, Provider: Arabella Terry, Status: Pen, Time: 3:00 PM CU-Voaaoepbeukzoe-Xaf ma MAC1 302 Work Phone: Start: 10-15-2022 [facility], Provider: Arabella Terry, Status: Pen, Time: 8:00 AM [facility], Provider: Arabella Terry, Status: Pen, Time: 8:00 AM BL-Gotredzbngyjmc-Dqv dman Work Phone: Start: 09-24-2022 VIRFUVHOME, Provider : Ranjana Perrin, Status: Pen, Time: 8:30 AM VIRFUVHOME, Provider: Ranjana Perrin, Status: Pen, Time: 8:30 AM [facility] Work Phone: Start: 09-04-2022 VIRFUVHOME, Provider : Ruby Daily, Status: Pen, Time: 11:30 AM VIRFUVHOME, Provider: Ruby Daily, Status: Pen, Time: 11:30 AM [facility] [address] [place] Work Phone: Start: 08-30-2022 EMOT, Provider: EUGENIE OREILLY PROCEDURE ROOM 10,MG GASTRO, Status: Pen, Time: 8:00 AM EMOT, Provider: ELIAN PROCEDURE ROOM 10,MG GASTRO, Status: Pen, Time: 8:00 AM NQ-Quwqslyfyetswu-Xzq dman Work Phone: Start: 08-30-2022 EGDANS, Provider: Beth Diego, Status: Pen, Time: 7:30 AM EGDANS, Provider: Beth Dieog, Status: Pen, Time: 7:30 AM DT-Wjrwvkjxwtljhq-Nqf dman Work Phone: Start: 08-17-2022 NPV, Provider: Arabella Alarcon, Status: Pen, Time: 10:40 AM NPV, Provider: Arabella Terry, Status: Pen, Time: 10:40 AM [facility] [address] [place] Work Phone: Start: 08-13-2022 VIRFUVJOSHUA, Provider : Yoanna Quigley, Status: Pen, Time: 3:15 PM VIRFUVJOSHUA, Provider: Yoanna Quigley, Status: Pen, Time: 3:15 PM [facility] [address] [place] Work Phone: Start: 07-31-2022 JAYLON, Provider : Ruby Daily, Status: Thomas, Time: 12:30 PM JAYLON, Provider: Ruby Daily, Status: Thomas, Time: 12:30 PM HZ-Fossswbhqykyxj-Mpn dman Voice Work Phone: Start: 05-31-2022 End: 07-31-2022 Comprehensive metabolic 2000 panel - Serum or Plasma COMP METABOLIC PANEL Lab Routine Chronic migraine without aura, intractable, without status migrainosus Expected: 05/31/2022, Expires: 07/31/2022 [facility] Work Phone: Comment on above: Expected: 05/31/2022 , Expires: 07/31/2022 Start: 04-22-2022 ADVANCE DIRECTIVE DISCUSSION ADVANCE DIRECTIVE DISCUSSION [facility] Start: 04-22-2022 DEPRESSION ASSESSMENT DEPRESSION ASS ESSMENT [facility] Start: 03-10-2022 SERUM CREATININE SERUM CREATININE [facility] Start: 01-20-2022 Influenza vaccination Influenza Vacc ine (#1) [facility] Start: 01-05-2022 End: 01-05-2023 Basic metabolic 2000 panel - Serum or Plasma Basic Metabolic Panel Lab Routine EMELIA (acute kidney injury) (HCC) Expected: 01/05/2022, Expires: 01/05/2023 [employer] Work Phone: Comment on above: Expected: 01/05/2022 , Expires: 01/05/2023 Start: 01-05-2022 End: 01-05-2023 CBC W Auto Differential panel - Blood CBC with Auto Differential Lab Routine Acute pancreatitis, unspecified complication status, unspecified pancreatitis type Expected: 01/05/2022, Expires: 01/05/2023 [employer] Work Phone: Comment on above: Expected: 01/05/2022 , Expires: 01/05/2023 Start: 12-21-2021 Influenza vaccination B ON [employer] Start: 07-03-2021 [facility] referral [facility] Start: 06-30-2021 Screening for malignant neoplasm of colon [facility] Start: 06-21-2021 End: 06-21-2021 [facility] Start: 06-05-2021 COVID-19 Vaccine (4 - Booster for Moderna series) COVID-19 Vaccine (4 - Booster for Moderna series) [facility] Start: 06-05-2021 COVID-19 VACCINE (4 - Moderna series) COVID-19 VACCINE (4 - Moderna series) [facility] Start: 01-14-2021 Basic metabolic 2000 panel - Serum or Plasma Basic Metabolic Panel [facility] Start: 01-14-2021 Creatinine measurement Basic Metabol ic Panel [facility] Start: 01-05-2021 Thyroid stimulating hormone measurement TSH [facility] Start: 12-15-2020 COVID-19 Vaccine (3 - Booster for Moderna series) COVID-19 Vaccine (3 - Booster for Moderna series) [facility] Start: 02-21-2020 Annual wellness visit [id number] Start: 12-22-2019 Influenza vaccination Flu vaccine (# 1) [facility] [employer] [place] Start: 03-03-2019 MRI Brain with out Contrast TK-Oluyytgst-Yzijqzsz d 201 Work Phone: Start: 2018 Abdominal aortic aneurysm screening Abdominal aortic aneurysm scan [facility] Start: 2018 Abdominal Aortic Aneurysm Screening (Age 65+) Abdominal Aortic Aneurysm Screening (Age 65+) [facility] Start: 2018 Pneumococcal 65+ yea rs Vaccine (1 - PCV) Pneumococcal 65+ years Vaccine (1 - PCV) [facility] Start: 2018 Pneumococcal 65+ yea rs Vaccine (1 of 1 - PPSV23) Pneumococcal 65+ years Vaccine (1 of 1 - PPSV23) [facility] [place] Start: 2018 Pneumococcal vaccination [facility] Start: 2018 Pneumococcal Vaccine : 65+ (1 - PCV) Pneumococcal Vaccine: 65+ (1 - PCV) [facility] Start: 2018 Pneumococcal Vaccine : 65+ (1 of 1 - PCV) Pneumococcal Vaccine: 65+ (1 of 1 - PCV) [facility] Start: 2018 Pneumococcal Vaccine : 65+ Years (1 - PCV) Pneumococcal Vaccine: 65+ Years (1 - PCV) [facility] Start: 2018 PNEUMOCOCCAL: 65+ (1 - PCV) PNEUMOCOCCAL: 65+ (1 - PCV) [facility] Start: 2013 Hepatitis B (HBV) Vaccine (optional start 60+ years) Hepatitis B (HBV) Vaccine (optional start 60+ years) [facility] Start: 2013 RSV Vaccine (1 - 1-dose 60+ series) RSV Vaccine (1 - 1-dose 60+ series) [facility] Start: 2013 RSV Vaccine (1 - Ris k 60-74 years 1-dose series) RSV Vaccine (1 - Risk 60-74 years 1-dose series) [facility] Start: 2013 RSV vaccine (optiona l 60+ years) RSV vaccine (optional 60+ years) [facility] Start: 2008 PROSTATE CANCER SCREENING DISCUSSION PROSTATE CANCER SCREENING DISCUSSION [facility] Start: 2003 Measurement of occul t blood in single stool specimen FIT [facility] Start: 2003 Screening for malignant neoplasm of colon [facility] Start: 2003 Shingles (RZV) Vacci ne (1 of 2) Shingles (RZV) Vaccine (1 of 2) [facility] Start: 2003 Shingles Vaccine (1 of 2) Shingles Vaccine (1 of 2) [facility] Start: 2003 SHINGRIX VACCINE (1 of 2) SHINGRIX VACCINE (1 of 2) [facility] Start: 2003 Zoster Vaccines (1 o f 2) Zoster Vaccines (1 of 2) [facility] Start: 1998 COLOGUARD (FIT-DNA) COLOGUARD (FIT-D NA) [facility] Start: 1998 Colonoscopy COLONOSCOPY [facility] Start: 1998 COLORECTAL CANCER SCREENING COLORECTAL CANCER SCREENING [facility] Start: [address] COLONOGRAPHY [facility] Start: 1998 FECAL OCCULT BLOOD FECAL OCCULT BLOO D [facility] Start: 1998 Screening for malignant neoplasm of colon [facility] Start: 1998 SIGMOIDOSCOPY SIGMOIDOSCOPY [facility] Start: 1993 Lipid panel Lipid screen [place], [place] Start: 1988 Lipid 1996 panel - Serum or Plasma Lipid Screening [facility] Start: 1988 Lipid panel [facility]olesterol [facility] Start: 1988 LIPID SCREEN LIPID SCREEN [facility] Start: 1972 DTaP/Tdap/Td vaccine (1 - Tdap) DTaP/Tdap/Td vaccine (1 - Tdap) [place], [place] Start: 1972 Hepatitis A (HAV) Vaccine (optional start 19+ years) Hepatitis A (HAV) Vaccine (optional start 19+ years) [facility] Start: 1971 ANNUAL PCP TEAM CHRONIC DISEASE VISIT ANNUAL PCP TEAM CHRONIC DISEASE VISIT [facility] Start: 1971 Anxiety Screening Anxiety Screening [facility] Start: 1971 Depression Screening Depression Scre ening [facility] Start: 1971 Hepatitis B surface antibody level LDL CHOLESTEROL [facility] Start: 1971 Hepatitis C screening B ON [facility] Start: 1971 HEPATITIS C SCREENING HEPATITIS C [facility] Start: 1965 Depression Screen Depression Screen [facility] Start: 1953 ABDOMINAL AORTIC ANEURYSM SCREENING ABDOMINAL AORTIC ANEURYSM SCREENING [facility] Start: 1953 Abdominal aortic aneurysm screening Abdominal Aortic Aneurysm Screening [facility] Start: 1953 Hepatitis C screening Hepatitis C [place], [place] Start: 1953 Lipid panel Lipid Panel [facility] Start: 1953 Medicare Annual Wellness Visit Medicare Annual Wellness Visit (AWV) [facility] Start: 1953 Screening for malignant neoplasm of colon [facility] Start: 1953 Thyroid stimulating hormone measurement TSH Level [facility] End: 01-07-2022 Basic metabolic 2000 panel - Serum or Plasma Basic Metabolic Panel Lab Routine Daily for 3 Days starting 01/05/2022 until 01/07/2022, 1 completed [employer] Work Phone: Comment on above: Daily for 3 Days sta rting 01/05/2022 until 01/07/2022, 1 completed Continuous pulse oximetry Pulse oximetry, continuous Respiratory Care Routine Every 4hr until discontinued starting 01/01/2022 [employer] Work Phone: Comment on above: Every 4hr until disc ontinued starting 01/01/2022 Culture, Blood 1 Culture, Blood 1 Microbiology STAT 01/01/2022 12:00 AM EDT [employer] Work Phone: Culture, Blood 2 Culture, Blood 2 Microbiology STAT 01/01/2022 12:01 AM EDT [employer] Work Phone: End: 12-31-2021 Intermittent pulse oximetry Pulse Oximetry Spot Check Respiratory Care Routine One Time for 1 Occurrences starting 12/31/2021 until 12/31/2021 [employer] Work Phone: Comment on above: One Time for 1 Occur rences starting 12/31/2021 until 12/31/2021 End: 06-30-2023 Mra head w/o contrst material [facility] Work Phone: Comment on above: 1 Occurrences starti ng 05/31/2022 until 06/30/2023 Oxygen therapy [Minimum Data Set] Initiate Oxygen Therapy Protocol Respiratory Care Routine As Needed until discontinued starting 12/31/2021 [employer] Work Phone: Comment on above: As Needed until disc ontinued starting 12/31/2021 Patient Education Colon polyps Hemorrhoids (DC) [facility] Work Phone: Surgical Pathology Surgical Path ology Lab Routine Gall stone pancreatitis Release Upon Ordering for 1 Occurrences starting 01/02/2022 [employer] Work Phone: Comment on above: Release Upon Orderin g for 1 Occurrences starting 01/02/2022 YG-Oddamkwve-Hv effiel d 201 Work Phone: [facility] NEGATED: Highlighted row has been ruled out! Planned Goals not documented LY-Bgrwulemv-Srzgzyhk d 201 Work Phone: Immunizations Immunization Date Immunization Notes Care Provider [facility] 07-15-2020 Moderna (primary 12+ yrs) COVID-19 vaccine, mRNA, spike protein, LNP, PF, 100 mcg/0.5 mL (CXJ=219) Radha Burris MD Work Phone: [facility] 07-14-2020 Moderna SARS-CoV-2 Vaccination Generic Provider [facility] 06-17-2020 Moderna (primary 12+ yrs) COVID-19 vaccine, mRNA, spike protein, LNP, PF, 100 mcg/0.5 mL (CSC=967) Radha Burris MD Work Phone: [facility] 06-16-2020 Moderna SARS-CoV-2 Vaccination Generic Provider [facility] 01-28-2016 influenza, injectable, quadrivalent, preservative free Radha Burris MD Work Phone: [facility] 01-28-2016 influenza virus vaccine, unspecified formulation Radha Burris MD Work Phone: [facility] 01-27-2013 tetanus toxoid, reduced diphtheria toxoid, and acellular pertussis vaccine, adsorbed Thor Fox Other [facility] NEGATED: Highlighted row has not occurred!04-28-2019 influenza, high dose seasonal, preservative-free Patient Objection Thor Fox Other [employer] Other NEGATED: Highlighted row has not occurred!06-14-2015 influenza, injectable,quadriva lent, preservative free, pediatric Patient Objection Thor Fox Other [employer] Other Payers Date Payer Category Payer Self-pay [id number] 2019 Unknown [id number] 2018 Medicare [id number] [id number] 1959 Medicare [id number] 1959 Unknown [id number] 1953 Unknown [id number] 2.16.8 40.1.680951.3.579.2.355 1953 Unknown [id number] 2.16.84 0.1.964847.3.579.2.185 1953 Unknown [id number] 2.16. 840.1.046718.3.579.2.732 1953 Unknown [id number] 2.16.8 40.1.966705.3.579.2.647 1953 Unknown [id number] 2.16.8 40.1.489205.3.579.2.647 1953 Unknown [id number] 2.16.8 40.1.584281.3.579.2.647 1953 Unknown [id number] 2.16. 840.1.967497.3.579.2.175 1953 Unknown [id number] 2.16.84 0.1.757799.3.579.2.593 1953 Unknown [id number] 2.16.84 0.1.530149.3.579.2.593 1953 Unknown [id number] 2.16.84 0.1.706103.3.579.2.593 1953 Unknown [id number] 2.16.84 0.1.694427.3.579.2.593 1953 Unknown [id number] 2.16.84 0.1.923407.3.579.2.593 1953 Unknown [id number] 2.16.84 0.1.424795.3.579.2.593 1953 Unknown [id number] 2.16.84 0.1.186387.3.579.2.593 1953 Unknown [id number] 2.16.84 0.1.530078.3.579.2.593 1953 Unknown [id number] 2.16.84 0.1.423970.3.579.2.593 1953 Unknown [id number] 2.16.84 0.1.520237.3.579.2.593 1953 Unknown [id number] 2.16.84 0.1.519849.3.579.2.593 1953 Unknown [id number] 2.16.84 0.1.471950.3.579.2.593 1953 Unknown [id number] 2.16.84 0.1.127847.3.579.2.593 1953 Unknown [id number] 2.16. 840.1.573746.3.579.2.356 1953 Unknown [id number] 2.16.8 40.1.440978.3.579.2.1046 1953 Unknown [id number] 2.16.8 40.1.478912.3.579.2.1046 1953 Unknown [id number] 2.16.8 40.1.866135.3.579.2.1046 1953 Unknown [id number] 2.16.8 40.1.734975.3.579.2.1046 1953 Unknown [id number] 2.16.8 40.1.039716.3.579.2.1046 1953 Unknown [id number] 2.16. 840.1.390467.3.579.2.356 1953 Unknown [id number] 2.16. 840.1.619384.3.579.2.356 1953 Unknown [id number] 2.16. 840.1.505563.3.579.2.356 1953 Unknown [id number] 2.16. 840.1.848668.3.579.2.356 1953 Unknown [id number] 2.16. 840.1.062435.3.579.2.356 1953 Unknown [id number] 2.16. 840.1.255243.3.579.2.356 1953 Unknown [id number] 2.16. 840.1.814123.3.579.2.356 1953 Unknown [id number] 2.16. 840.1.599845.3.579.2.356 1953 Unknown [id number] 2.16. 840.1.618792.3.579.2.356 1953 Unknown [id number] 2.16. 840.1.990989.3.579.2.356 1953 Unknown [id number] 2.16. 840.1.582548.3.579.2.356 1953 Unknown [id number] 2.16. 840.1.485428.3.579.2.356 1953 Unknown [id number] 2.16. 840.1.527606.3.579.2.356 1953 Unknown [id number] 2.16.8 40.1.952048.3.579.2.8 1953 Unknown [id number] 2.16.8 40.1.840686.3.579.2.1068 1953 Unknown [id number] 2.16.8 40.1.667596.3.579.2.1244 1953 Unknown [id number] 2.16.84 0.1.420380.3.579.2.1245 1953 Unknown [id number] 2.16.84 0.1.524375.3.579.2.1245 1953 Unknown [id number] 2.16.8 40.1.281452.3.579.2.1246 1953 Unknown [id number] 2.16.84 0.1.539236.3.579.2.1259 1953 Unknown [id number] 2.16.84 0.1.122068.3.579.2.1259 1953 Unknown [id number] 2.16.84 0.1.629165.3.579.2.1259 1953 Unknown [id number] 2.16.84 0.1.006892.3.579.2.1259 1953 Unknown [id number] 2.16.84 0.1.594368.3.579.2.9 1953 Unknown [id number] 2.16.84 0.1.593477.3.579.2.1259 1953 Unknown [id number] 2.16.84 0.1.294994.3.579.2.1259 1953 Unknown [id number] 2.16.840 .1.055273.3.579.2.1259 Private Health Insurance [id number] Unknown [id number] 2.16.8 40.1.994419.3.579.2.531 Unknown [id number] 2.16.8 40.1.584189.3.579.2.531 Social History Date Type Detail Facility Assertion Unknown if ever smoked [facility] [address] Work Phone: Start: 1955 Sex Assigned At Not on file [place] Start: 12-01-2020 End: 06-29-2021 Sex Assigned At [facility] Start: 01-01-2022 Tobacco smoking status NHIS Never smoked tobacco [employer] Phone: Start: 10-07-2017 End: 01-01-2022 Tobacco use and exposure Smokeless tobacco non-user [employer] Phone: Start: 12-21-2021 End: 01-31-2023 Exposure to SARS-CoV-2 (event) Not sure [facility] Work Phone: Start: 10-07-2017 End: 01-06-2020 Tobacco smoking status NHIS Ex-smoker [facility] Start: 04-22-1967 End: 01-06-1984 History of tobacco use [facility] Start: 04-22-1967 End: 01-06-1984 History of tobacco use [facility] Start: 01-27-2020 End: 04-05-2021 Alcohol intake Current drinker of alcohol (finding) [facility] Start: 01-27-2020 End: 12-01-2020 Alcohol intake [facility] Start: 01-06-2020 History SDOH Alcohol Frequency 2 [facility] Start: 05-04-2021 Alcohol Comment 1 beer once a month [facility] Adult Depression Screening Assessment 1 [facility] Start: 01-06-2024 Tobacco smoking status [facility] Tobacco smoking consumption unknown [facility] Work Phone: Start: 1955 Sex Assigned At Male [facility] Within the last year , have [...] Gender identity Identifies as male gender (finding) [facility] Start: 12-01-2020 Alcohol Comment one half of a beer once a month [facility] Start: 03-28-2021 End: 04-27-2021 Exposure to SARS-CoV-2 (event) Unable to assess [facility] Start: 01-06-2024 Alcohol intake Alcohol Use Details [facility] Start: 02-06-2021 Sexual Orientation Straight or heterosexual [facility] Medical Equipment Procedure Code Equipment Code Equipment Origin al Text Equipment Identifier Dates Gas Ispan [employer] [id number] - [id number] Start: 10-15-2017 Lens Iol Ultrase rt 16 - [id number] Start: 10-15-2017 Sleeve 2.4mm 1.5 mm Silicone 30mm Scleral Round Sterile - [id number] Start: 10-15-2017 Strip Silicone [id number] Retinal 9229 Sterile - [id number] Start: 10-15-2017 Goals Date Patient Goal Desired Activity /State Functional Status Date Assessment Result Facility NEGATED: Highlighted row Functional performance Functional status health issues are not documented Disease [facility] [address] Work Phone: Mental Status Date Assessment Result Facility NEGATED: Highlighted row Cognitive function [Interpretation] Cognitive status health issues are not documented Disease [facility] [address] Work Phone: Clinical Notes 2018 [...] back for a follow up from his pilot control operator helper. New Problem Spine-cervical Location: Pain diagram reviewed [...] [facility] New Problem Spine-cervical Location: Bilateral cervical [...] well up until a few months ago. [facility] Work Phone: 1([phone]) 815-933409-04-2024 [facility] Chief Complaint: [...] cardiac catheterization 02/2021; this was done at [facility]. He has mild nonobstructive coronary artery [...] family physician. 3.- Will follow up with staff nurse midwife Dr. Vilchis. Serene Solis MD Director Of Consumer Affairs - PGY6 [facility] By using the attestations below, the signing clinician ag (more content not included)...[facility]06-20-2024 NoteSYNCOPE AND AUTONOMIC DISORDERS CLINIC Reason [...] MR HEAD ANGIO WO IV CONTRAST 07/09/2022 [facility] MR IMAGING MR NECK ANGIO WO IV CONTRAST 07/09/2022 MR NECK ANGIO WO IV CONTRAST 07/09/2022 [facility] MR IMAGING NECK SURGERY THYROIDECTOMY [...] regular Heart Sounds: normal (more content not included)...[facility]05-10-2024 NoteCardiovascular Laboratory Report FINAL IMPRESSIONS: Moderate [...] Vilchis, Electrophysiology as scheduled Follow-up with the [facility] in [place] as scheduled PROCEDURES: Ultrasound-guided access to the [...] left radial artery was obtained. A 6 Cypriot glide sheath was inserted without difficulty. Bilateral [...] mid to distal portion. INDICATIONS: Chest pain, presyncopeUnNationwide [facility]05-03-2024 NotePt stated he has been told that he becomes nasty if he does not received enough sedation, states he needed general for his Watchman procedure. He also states he becomes aphasic w/ too much sedation.[facility] 08-22-2023 NoteSYNCOPE AND AUTONOMIC DISORDERS CLINIC [...] MR HEAD ANGIO WO IV CONTRAST 07/09/2022 [facility] MR IMAGING MR NECK ANGIO WO IV CONTRAST 07/09/2022 MR NECK ANGIO WO IV CONTRAST 07/09/2022 [facility] MR IMAGING NECK SURGERY THYROIDECTOMY [...] Psych: no depression, feeli (more content not included)...[facility]05-02-2024 NoteSYNCOPE AND AUTONOMIC DISORDERS CLINIC Reason [...] MR HEAD ANGIO WO IV CONTRAST 07/09/2022 [facility] MR IMAGING MR NECK ANGIO WO IV CONTRAST 07/09/2022 MR NECK ANGIO WO IV CONTRAST 07/09/2022 [facility] MR IMAGING NECK SURGERY THYROIDECTOMY [...] Psych: no depression, feeli (more content not included)...[facility]04-24-2024 NoteCardiovascular Medicine [place] [facility] SUBJECTIVE Yoli Antunez Jr. is a [...] (CMS/HCC) Essential hypertension Coronary artery disease involving [place] coronary artery of [place] ge[place] heart without angina pectoris Recurrent falls History [...] without rupture (CMS/HCC) Coronary artery disease involving [place] george coronary artery of [place] george heart Past Medical History: Diagnosis Date Arrhythmia [...] Former BSA 2.45 m??? (more content not included)...[facility] 07-18-2023 NotePatient here for wound check s/p PPM insertion on 07/[address] Vilchis.[facility]03-28-2024 NoteCardiovascular Medicine [place] [facility] SUBJECTIVE Chief Complaint Patient presents with [...] (CMS/HCC) Essential hypertension Coronary artery disease involving [facility] george coronary artery of [place] george heart without angina pectoris Recurrent falls History [...] not start before No (more content not included)...[facility]03-21-2024 NoteCardiovascular Medicine [place] [facility] SUBJECTIVE No chief complaint on file. [...] an episode yesterday while walking around in [facility]. He notes that he does not [...] (CMS/HCC) Essential hypertension Coronary artery disease involving [facility] george coronary artery of [place] george heart without angina pectoris Recurrent falls History [...] 82 Ht 1.981 m (more content not included)...[facility] 07-11-2023 NotePatient here for wound check [...] change. All other systems reviewed and are negative.[facility] 07-09-2023 NoteIndications for permanent pacemaker implantation [...] of the upper extremity Shukri Vilchis M.D. [facility] Entry Level Lab Techniciancentral sterile technician and Pediatrics Director: Cardiac Electrophysiology ProgramLicking Memorial Hospital 07-09-2023 NotePatient: Yoli Antunez Jr. Procedure Information Date/Time: 07/09/23 1230 Procedure: Pacemaker DC new - biotronik DC pacemaker implant Location: [facility] APPRAISER 1 / [facility] (Cath) Providers: Shukri Vilchis MD Clinical information reviewed: Allergies Meds Physical Exam Airway Mallampati: III Cardiovascular - normal exam Dental Pulmonary - normal exam Abdominal - normal exam Anesthesia Plan ASA 3 CSE Anesthetic plan and risks discussed with patient. Use of blood products discussed with patient who consented to blood products. Plan discussed with attending. Additional Equipment RequestsLicking Memorial Hospital02-26-2024 Note Jayme Antunez is a pleasant 68 year old male previously evaluated for episodes of syncope and near syncope with history of atrial fibrillation and rf ablation at our [facility] in the Heart [facility] V[facility] Center at the [facility]. He was recently evaluated by Dr. [...] and time. Lab Review: Stress test 05/2023: [facility] CONCLUSION: 1. No acute or reversible ischemia. 2. Diaphragm attenuation artifact versus mildly decreased perfusion of the inferior wall; stable between stress and rest imaging. Attenuation artifact is suspected. 3. Normal wall motion, left ventricle volume, and ejection fraction. Dictated by: Donnell Du M.D. on 06/07/2023 at 12:03 Approved by: Donnell Du M.D. on 06/07/2023 at 13:36 [facility] echocardiogram 05/2023: CONCLUSION: 1. The left [...] PPM He had all questions answered. RTC [address] [place] [address] 05-31-2023 NoteHNO ID: [id number] Author: MARÍA PEARL APRN.KST OPERATOR Service: ? Author Type: Nurse Practitioner Type: [...] visit. Either the patient or their legal footwear sales representative has been informed of the [...] will repeat tilt table testing here at [facility]. We reviewed the diagnosis of [...] was seen by Dr. Vilchis at the [facility] yesterday. Dr. Vilchis feels that Jamil has sick sinus syndrome. He is going to have a pacemaker placed. Jamil is going to have an echocardiogram and stress test next week. Pacemaker to follow the above testing. Skin nerve biopsy here at [facility] not indicative of small fiber [...] well. Medications Reviewed ergocal (more content not included)...[facility]02-09-2024 History of Present illness Narrative* María Pearl [...] visit. Either the patient or their legal footwear sales representative has been informed of the [...] will repeat tilt table testing here at [facility]. We reviewed the diagnosis of [...] was seen by Dr. Vilchis at the [facility] yesterday. Dr. Vilchis feels that Jamil has sick sinus syndrome. He is going to have a pacemaker placed. Jamil is going to have an echocardiogram and stress test next week. Pacemaker to follow the above testing. Skin nerve biopsy here at [facility] not indicative of small fiber [...] He was seen by Dr. Vilchis at [facility] who would like to place a [...] which included preparing to see the patient, cccy-zz-argr patient care, completing clinical documentation, obtaining and/or [...] this visit on 05/31/23. María Pearl MSN, LABORER [employer], CHIEF OPERATOR HYDROFORMER-C documented in this encounterMercy [facility]02-08-2024 NoteSYNCOPE AND AUTONOMIC DISORDERS CLINIC Reason [...] MR HEAD ANGIO WO IV CONTRAST 07/09/2022 [facility] MR IMAGING MR NECK ANGIO WO IV CONTRAST 07/09/2022 MR NECK ANGIO WO IV CONTRAST 07/09/2022 [facility] MR IMAGING NECK SURGERY THYROIDECTOMY [...] snoring, no dry mouth, (more content not included)...[facility]01-30-2024 NoteUT Electrophysiology Consult Note Reason for visit: dysautonomia 05/21/23: He is here for ER follow-up for chest pain he was evaluated at [place] [facility] recently for chest pain but was [...] table scheduled as well. He has a MongoDB loop and I reviewed his loop data, [...] MR HEAD ANGIO WO IV CONTRAST 07/09/2022 [facility] MR IMAGING MRA NECK WO IV CONTRAST 07/09/2022 MR NECK ANGIO WO IV CONTRAST 07/09/2022 [facility] MR IMAGING NECK SURGERY THYROIDECTOMY [...] (Topamax) 25 mg ta (more content not included)...[facility]01-30-2024 NotePatient here for follow up [facility] ED for chest pain. He's been taking [...] change. All other systems reviewed and are negative.[facility] 05-20-2023 Evaluation note* Encounter Date Diagnosis Assessment Notes Treatment Notes Treatment Clinical Notes Apr, Abdominal pain (ICD-10 - R10.9) Apr, Diarrhea (ICD-10 - R19.7) [facility] Other 01-26-2024 NoteThe patient stated that he [...] again with him next week. Keeley Don, [facility] 06/05/23 3:27 PMLicking Memorial Hospital01-26-2024 NotePatient called back and I discussed Roly's complete note. Patient is going to apply for Extra Help, I am sending all the information to him via email ([email or web address]). Wendi Estrada, [facility] 05/21/23 2:44 PMLicking Memorial Hospital01-26-2024 NoteSpecialty Pharmacy Note: Corlanor Supervising Physician & Clinic:??Yandel Shen NP/ Mono Christie MD & [facility] Yoli Peoples Harmony Isidro is [...] submit PA via CMM. Shelly Murcia, [employer] Machine Maintainer 05/17/23 4:12 PM [facility] [phone] Marge Funes PharmD, HOSSEINCP 05/20/23 1:07 PM [facility] [phone] Memorial Hospital01-26-2024 NotePatient is still waiting to hear back from the doctor. Okay to follow up Saturday to see if he wants to proceed with corlanor. Aliya De La Cruz [facility] 06/14/23 9:21 AMLicking [facility] Hospital01-26-2024 NoteReceived provider portion. Marge Funes PharmD, GUIDO 05/29/23 2:40 PM [facility] [phone] Memorial Hospital01-26-2024 NoteSpoke with the patient. Patient stated that the insurance sent a letter in the mail on 05/20/2023 stating stating that it was covered. I told the patient that even with the insurance covering the medication, it will still cost $133. T he patient also stated that he has sent the application to judo. I told him if he could send [...] and then send in the application to judo. Soco Schafer, Tool And Machine Maintainer 05/28/23 3:29 PM [facility] [phone] Memorial Hospital01-26-2024 NotePatient called back today and would like us to send him the PAP form. He looked up the Extra Help information and he said that he misses it by $100. We informed him that he still has to apply because we need a denial letter. I sent him the PAP via e-mail for him to start filling that out. Wendi Estrada [facility] 05/22/23 12:51 PMLicking Memorial Hospital01-26-2024 NotePer message from Jackie Banks pt is to receive a permanent pacemaker and corlanor is going to be held. We will not continue follow up. Discarded folder. Aliya De La Cruz [facility] 06/20/23 9:26 AMLicking [facility] Hospital01-26-2024 NoteSpoke to the patient. I think [...] that he hasn't sent anything in to judo. He will fill out that paperwork and send to me in an email today. I explained that [employer] usually requires the Extra Help denial but that it might take weeks to get that letter so we can go ahead and submit the judo PAP application without it and see what they say. Once I get his portion and the provider portion I will fax everything in. I am emailing the provider portion today, doesn't look like that was done. Marge Funes, PharmD, BCACP 05/29/23 10:11 AM [facility] [phone] Memorial Hospital01-26-2024 NotePrior Authorization for Corlanor has been approved 04/20/2023-05/19/2024. Case ID/Authorization Number:[id number] No letter to scan at this time. [...] signed the forms in appt. Roly Cuenca, [facility] 1/29/24 at 2:41 PMLicking Memorial Hospital12-26-2023 Procedure note [facility]12-13-2023 NoteCardiovascular Medicine [place] [facility] SUBJECTIVE Chief Complaint Patient presents with [...] (CMS/HCC) Essential hypertension Coronary artery disease involving [facility]. george coronary artery of [place]. george heart without angina pectoris Recurrent falls History [...] (360 mg) by m (more content not included)...[facility]12-13-2023 NotePatient here for 1 year follow up s/p Watchman implant. Review of Systems Cardiovascular: Positive for chest pain, dyspnea on exertion, irregular heartbeat, leg swelling (resolves by morning), near-syncope, palpitations and syncope. Musculoskeletal: Positive for arthritis, back pain, joint pain and myalgias. Neurological: Positive for dizziness, headaches, light-headedness and sensory change. All other systems reviewed and are negative.[facility] 04-01-2023 Evaluation note* Encounter Date Diagnosis Assessment Notes Treatment Notes Treatment Clinical Notes Mar, Abdominal pain (ICD-10 - R10.9) Mar, Diarrhea (ICD-10 - R19.7) [facility] 11-29-2023 Evaluation note* Encounter Date Diagnosis Assessment Notes Treatment Notes Treatment Clinical Notes Feb, Diarrhea (ICD-10 - R19.7) Feb, Hiatal hernia (ICD-10 - K44.9) [facility] Other 11-14-2023 NoteSubjective oYli Antunez . is a 67 y.o. male we follow for autonomic dysfunction, orthostatic hypotension. He has episodes of aphagia lasting 1-12 hours associated with presumed drop in BP. He has had expressive aphagia on tilt table testing at [facility] Dec [facility] (see below). Duration about 12 hours Chief Complaint: Neurogenic orthostatic hypotension Fludrocortisone: no effective Pyridostigmine: side effects Effexor: not effective BP labile Highest BP 150/90mmhg Lowest BP 82/46mmhg Review of Systems Cardiovascular: Positive for near-syncope and syncope. Last syncope Dec 2022. On hay wagon. [place] it coming, did not get off wagon fast enough. Syncope. No trauma. [place] [facility]. 24 hour observation. BP 80/40mmhg Over [...] but had expressive language aphagia. Lab Review: [facility] Tilt. * FINAL IMPRESSIONS * - [...] and no improvement I consulted with Dr. Jiemnez, pilot control operator helper in clinic and decision made to have him evaluated in ED. I called the ED attending and reported the admission, to which she agreed he may need a stroke work up.[facility]11-06-2023 NoteHNO ID: [id number] Author: Joann Stark PA-C Service: ? Author Type: Physician Pool Attendant Type: Progress Notes Filed: 02/25/2023 2:52 PM Note Text: Skin Biopsy Procedure Note Skin Biopsy Accession Number: [id number] Biopsy Date: 02/25/2023 Referring physician: María Pearl [...] Procedure Note Procedure confirmed with provider and presidential support specialist. Yes, left leg 2 skin biopsies. [...] home. Specimens were labeled and sent to [facility] Cutaneous Nerve Laboratory. Procedure was performed by: Joann Stark PA-C Assistance in supply/equipment preparation performed by: DAVID Downs Sign out is complete.[facility]11-06-2023 History of Present illness Narrative* Joann Stark PA-C - 02/25/2023 2:09 PM EST Skin Biopsy Procedure Note Skin Biopsy Accession Number: [id number] Biopsy Date: 02/25/2023 Referring physician: María Pearl [...] Procedure Note Procedure confirmed with provider and presidential support specialist. Yes, left leg 2 skin biopsies. [...] home. Specimens were labeled and sent to [facility] Cutaneous Nerve Laboratory. Procedure was performed by: Joann Stark PA-C Assistance in supply/equipment preparation performed by: DAVID Downs Sign out is complete. documented in this encounterMercy Health [facility] Hospital10-17-2023 Miscellaneous Notes* Telephone Encounter - Shivani Ambriz RN - 02/05/2023 1:00 PM EDT Images from the original note were not included. María Pearl APRN.KST OPERATOR You 7 minutes ago (12:52 PM) This is a normal result. [place] YAMILA Carnes, RN * Telephone Encounter - Shivani Ambriz RN - 02/05/2023 12:48 PM EDT Images from the original note were not included. Copper: YAMILA Carnes, RN * Telephone Encounter - Aydee Hunter - 02/05/2023 12:06 PM EDT Scanned in results from [facility] for review documented in this encounterMercy Health [facility]10-12-2023 History of Present illness Narrative* Yossi [...] and scan are done. documented in this encounterMercy Health St. [facility] Work Phone: [phone]) [phone] Instructions* Patient Instructions* Yossi Chen MD - 01/31/2023 3:00 PM EDT I will get stool culture and CT scan to figure out the reason for the abdominal pain and diarrhea documented in this encounterMercy Health St. [facility] Work Phone: [phone]) [phone] Miscellaneous Notes* Telephone Encounter - Paul Burns RN - 01/28/2023 4:08 PM EDT Images from the original note were not included. María Pearl, BRENNA.KST OPERATOR You 6 hours ago (9:39 AM) I have a message out to headache clinic about adjusting his medication. YAMILA Cage, RN, BA documented in this encounterMercy Health [facility] Hospital10-09-2023 Miscellaneous Notes* Telephone Encounter - Paul Burns RN - 01/28/2023 3:39 PM EDT [place] sent MCM to patient. Patient read. YAMILA Cage, RN, BA documented in this encounterMercy Health [facility] Hospital10-09-2023 Miscellaneous Notes* Telephone Encounter - Paul [...] AM EDT Scanned in results from [facility] for review documented in this encounterMercy Health [facility] Hospital10-05-2023 NoteHNO ID: [id number] Author: Peggy Bravo RN Service: ? Author [...] Test done in consult with María Pearl APRN.KST OPERATOR . Procedure Start Time: 1419 Height 198.1 [...] RN; Briana Emmanuel RN Procedure Finish Time: 1523C[facility]23 NoteHNO ID: [id number] Author: María Pearl APRN.KST OPERATOR Service: ? 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 The lightheadedness and dizziness does NOT [...] follow with the headache clinic here at [facility]. On May 23, 2022 he [...] by cardiology, Jackie Banks CNP, at the [facility]. Jackie had a concern for autonomic dysfunction. She placed Jamil on pyridostigmine, but he had significant diarrhea and it was thus discontinued. He has constant bilateral tinnitus. He states it sounds like an air gabriel. He has not seen ENT. He has a ILR and watchman. These have not revealed a cause for his lightheadedness or dizziness. He did see his pilot control operator helper this week who felt his symptoms are [...] focal stenosis, occlusion, or aneurysmal dilatation. Complete venetie ira of Michel. He is brought in today [...] not taking: Reported on (more content not included)...[facility]10-04-2023 NoteHNO ID: [id number] Author: Kristen Wagner OCCA Service: ? Author Type: Prison Warden Type: Progress Notes Filed: 01/23/2023 10:15 AM [...] How severe is this focusing problem? : ModerateFulton County Health Center 01-21-2023 NoteUT Electrophysiology Consult Note Reason [...] table scheduled as well. He has a MongoDB loop and I reviewed his loop data, [...] MR HEAD ANGIO WO IV CONTRAST 07/09/2022 [facility] MR IMAGING MRA NECK WO IV CONTRAST 07/09/2022 MR NECK ANGIO WO IV CONTRAST 07/09/2022 [facility] MR IMAGING NECK SURGERY THYROIDECTOMY [...] no difficulty hearing, no (more content not included)...[facility]10-02-2023 NotePatient here for 1 mo follow up. He was started on Crestor and Ranexa by Dr. Gonsalez last month. He didn't start Crestor because my cholesterol is good . He did start Ranexa but doesn't think it's helping him with angina. Says he actually feels worse. He presented to [facility] ED last week for CVA-like symptoms [...] light-headedness. All other systems reviewed and are negative.[facility] 12-31-2022 NoteHNO ID: [id number] Author: Sarbjit Richardson APRN.[facility] Service: ? Author Type: Nurse Practitioner Type: Progress Notes Filed: 12/31/2022 5:04 PM Note Text: [facility] Follow up visit December 31, 2022 [...] by Cardiology at the [facility] for syncopal episodes. 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 put in in the front bulldozer/loader/compactor/scraper and helped him to the house - [...] troponins and ECG 09/11/[address] [facility]- Cardiology - Jackie Banks CLAMPER wrote: I copied and pasted my initial consult note from [facility] date 07/20/2022 for continuity of care: Hx paroxysmal atrial fibrillation. Undervent a watchman device implant at [facility] 03/06/2022. History of CAD. AAA [...] Last evaluated one month ago by neurology [facility]. Recent MRA MRV. HPI: Syncope began [...] Items Addressed This Visit Referred back to [facility]; Headache 1 Onset: - Migraine headache s Location: frontal (occipital vertex) Quality/ (more content not included)...[facility]09-11-2023 History of Present illness Narrative* Sarbjit Richardson, [employer].KST OPERATOR - 12/31/2022 3:15 PM EDT [facility] Follow up visit December 31, 2022 [...] by Cardiology at the [facility] for syncopal episodes. 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 put in in the front bulldozer/loader/compactor/scraper and helped him to the house - [...] troponins and ECG 09/11/[address] [facility]- Cardiology - Jackie Banks CLAMPER wrote: I copied and pasted my initial consult note from [facility] date 07/20/2022 for continuity of care: Hx paroxysmal atrial fibrillation. Undervent a watchman device implant at [facility] 03/06/2022. History of CAD. AAA [...] Last evaluated one month ago by neurology [facility]. Recent MRA MRV. HPI: Syncope began [...] Items Addressed This Visit Referred back to [facility]; Headache 1 Onset: - Migraine headache [...] Date AAA (abdominal aortic aneurysm) without rupture ([facility]) Arthritis Atrial fibrillation/flutter CAD (coronary artery disease) CKD (chronic kidney disease) stage 3, GFR 30-59 ml/min ([facility]LY [facility]) Ex-smoker Gastric ulcer GERD (gastroesophageal reflux disease) Gout History of GI bleed HLD (hyperlipidemia) Hypertension 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 ADA treated with BiPAP Peripheral neuropathy Restless leg syndrome TIA (transient ischemic attack) x 2 ALLERGIES Allergen Reactions Penicillins Unknown Tikosyn [Dofetilide] Other: See Comments Aphasia, dizzy, muscle cramps Vancomycin Anaphylaxis MR neck / head angio 07/09/2022- at [facility] Impression No gross evidence for flow-limiting stenosis of bilateral extrarenal vertebral or carotid arteries accounting for extensive patient motion artifact. If persistent concern for an abnormality of the carotid or vertebral arteries, consider CTA if clinically indicated. Impression No focal stenosis, occlusion, or aneurysmal dilatation. Complete venetie ira of Michel. CT brain 05/23/2022 Impression *Negative [...] osteopenia, and partially imaged atlantoaxial arthritic changes. Fishing Tackle Repairer (topogram) images: No additional findings. HEADACHE SCORES: [...] articulation, and clear,coherent, and relevant. Short and fdc memory, cognition and general fund of knowledge [...] followed by aphasia. He was evaluated in [place] for syncope - felt it was neurocardiogenic [...] 6 months, PRN . Level of service: [facility] level 5 (40-54 min). Time spent 45 min on the day of service, which included preparing to see the patient, aqur-qx-nqij patient care, completing clinical documentation, obtaining and/or reviewing separately obtained history, performing a medically appropriate examination, counseling and educating the patient/family/caregiver, and ordering medications, tests, or procedures. Sarbjit Richardson APRN.NEETU Headache Section [facility] December 31, 2022 5:03 PM documented in this encounterMercy Health Perrysburg Hospital09-08-2023 NotePatient here for follow up ED [facility]. 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 and suddenly starting having chest pain, dizzniess, diaphoresis, and SOB.[facility]09-08-2023 NoteUTP CARDIOLOGY PROGRESS NOTE HPI: Yoli [...] is maintained on a (more content not included)...[facility]08-03-2023 NoteSend Summary: Discharge Summary Providers: Provider RoleProvider Name Radha Jorge Abraham PrimaryHohman, Jennifer Note Recipients: Radha Burris MD - [id number] [] Discharge: Summary: Admission Date: .21-Nov-2022 05:06:00 [...] discharge: Full Code Electronic Signatures: Sivan Costa ([employer]-KST OPERATOR) (Signed 22-Nov-2022 12:13) Authored: Send Summary, Summary Content, Ongoing Care, DNR Status Yossi Chen) (Signed 22-Nov-2022 12:27) Authored: Summary Content, Ongoing Care, Note Completion Last Updated: 22-Nov-2022 12:27 by Yossi Chen)[facility] 11-21-2022 NotePost Operative Note: PreOp Diagnosis: symptomatic hiatal hernia Post-Procedure Diagnosis: same Procedure: 1. Laparoscopic repair of Type 3 paraesophageal hernia with Toupet wrap and gastroscopy 2. 3. 4. 5. Surgeon: April Resident/Fellow/Other Pool Attendant: Adrián/Elio Estimated Blood Loss (mL): none Specimen: [...] esophagus to the right side. A lighted 56-Cypriot bougie was placed. The shoeshine maneuver was [...] #1 Ethibond with a Tony-Ran in a xaodxf-em-akfje fashion. The liver retractor was removed. The [...] Completion Last Updated: 21-Nov-2022 13:27 by Yossi Chen)[facility] 11-21-2022 History of Present illness Ucqbmfcnz47-hwoa-kfk patient who underwent laparoscopic repair of paraesophageal [...] it down withwater. Denies heartburn and acid reflux.-[facility] Work Phone: 1(892) 231-105408-02-2023 History of Present illness Narrative 67-year-old patient [...] reflux, heartburn and having less coughing with meal-[facility] Work Phone: 1(305) 223-882908-02-2023 NoteHistory & Physical Reviewed: I have reviewed [...] Completion Last Updated: 21-Nov-2022 07:15 by Yossi Chen)[facility] 11-16-2022 Miscellaneous Notes* Telephone Encounter - Jessiac Scott - 11/16/2022 5:55 PM EDT Received faxed report of medical records done at . Uploaded via On[employer]andhalf, will be available in [employer] [facility] for review shortly. documented in this encounterMercy Health Perrysburg Hospital07-03-2023 Miscellaneous Notes* Telephone Encounter - Sarbjit Richardson APRN.KST OPERATOR - 10/22/2022 4:33 PM EDT Opened in error Sarbjit Richardson APRN.NEETU documented in this encounterMercy Health Perrysburg Hospital06-29-2023 NoteHNO ID: [id number] Author: Michaela Polo RN Service: ? Author [...] dizziness. IV removed. Pt discharged from treatment room.[facility]06-29-2023 History of Present illness Narrative* Michaela [...] discharged from treatment room. documented in this encounterMercy Health Perrysburg Hospital06-26-2023 NotePROCEDURE DETAILS Preoperative Diagnosis: Sleep apnea, G47.30 Postoperative Diagnosis: Sleep Apnea Surgeon: Arabella Terry Resident/Fellow/Other Pool Attendant: None of these were associated with this [...] Completion Last Updated: 15-Oct-2022 11:11 by Arabella Terry)[facility]06-26-2023 Miscellaneous Notes* Op Note - Arabella Butt MD - 10/15/2022 11:02 AM EDT PROCEDURE DETAILS Preoperative Diagnosis: Sleep apnea, G47.30 Postoperative Diagnosis: Sleep Apnea Surgeon: Arabella Terry Resident/Fellow/Other Pool Attendant: None of these were associated with this [...] 11:11 by Arabella Terry) documented in this [facility] Work Phone: 1(703) 573-237906-26-2023 Note* Op Note - Arabella Butt MD - 10/15/2022 11:02 AM EDT PROCEDURE DETAILS Preoperative Diagnosis: Sleep apnea, G47.30 Postoperative Diagnosis: Sleep Apnea Surgeon: Arabella Terry Resident/Fellow/Other Pool Attendant: None of these were associated with this [...] Last Updated: 15-Oct-2022 11:11 by Arabella Terry) [facility] Work Phone: 1(603) 570-727806-06-2023 Chief complaint Narrative - Reported* An interactive audio and video telecommunication system which permits real time communications between the patient (at the originating site) and provider (at the distant site) was utilized to providethis telehealth service. * Verbal consent was requested and obtained from YOLI ANTUNEZ on this date, 09/25/2022 02:30 PM, for a telehealth visit. * Dysphagia follow-up CS-Qdlaokhvrhypib-Gxwmfck Work Phone: 1(308) [phone] History of Present illness Narrative* 67 year [...] more in his throat. Seeing neurology at [facility] for his intermittent aphasia. Still awaiting manometry results. * 09/04/22: * Here for follow-up. Esophagram completed 08/10/22 with moderate hiatal hernia, possible inflammatorynarrowing at GEJ, also area of mucosal irregularity for which endoscopy was recommended. He had manometry placed under endoscopy on 08/30/22, overall esophagus appeared normal on their exam with khnwa5bh nodule at GEJ that was biopsied. Pathology [...] esophagus and pill sticking in the vallecula [place]-Pvcxqnymxugkgr-Gwlhlad Work Phone: 1(683) 281-630605-25-2023 NoteHNO ID: [id number] Author: Sarbjit Richardson APRN.KST OPERATOR Service: ? Author Type: Nurse Practitioner Type: Progress Notes Filed: 09/13/2022 11:43 AM Note Text: Headache Section [facility] Virtual Visit Follow up During this [...] visit. Either the patient or their legal footwear sales representative has been informed of the [...] and sore throat after infusion. Jackie Banks CLAMPER wrote 07/20/2022: [facility] heart and vascular center cardiology clinic. Yoli Antunez is a pelasant 67 year old male referred to Dr Shukri Vilchis and the Syncope and Autonomic Disorders Clinic in the Heart and Vascular Center at the [facility] for an evaluation of syncope. Hx paroxysmal atrial fibrillation. Undervent a watchman device implant at [facility] 03/06/2022. History of CAD. AAA [...] Last evaluated one month ago by neurology [facility]. Recent MRA MRV. Assessment/Plan The primary [...] with treatment: Dura (more content not included)... [facility]05-16-2023 History of Present illness Narrative* 67 year [...] esophagus appeared normal on their exam with iykmn2gd nodule at GEJ that was biopsied. Pathology [...] esophagus and pill sticking in the vallecula [facility]-Swpahdmflwuziy-Yusywvq Work Phone: 1(191) [phone] Chief complaint Narrative - Reported* An interactive audio and video telecommunication system which permits real time communications between the patient (at the originating site) and provider (at the distant site) was utilized to providethis telehealth service. * Verbal consent was requested and obtained from YOLI ANTUNEZ on this date, 09/04/2022 11:30 AM, for a telehealth visit. * Dysphagia follow-up HT-Cwxvuovesppvpl-Edshpnh Work Phone: 1([phone]) [phone] NotePatient Name: Yoli Antunez Procedure Date: 08/30/2022 7:32 AM Date of : 1955 Admit Type: Outpatient Site: [place] Procedure Room 5 Ethnicity: Not or Race: White Attending MD: ELISEO Williamson, [id number] Procedure: Upper GI endoscopy Indications: Dysphagia for 5 years to both liquids and solids Patient Profile: This is a 67 year old male. Refer to note in patient chart for documentation of history and physical. Providers: ELISEO Williamson (Doctor), Jaylen Lo, RN (Nurse), Florentino De Dios, Outpatient Psychiatrist, Kristin Mcdaniels RN (Nurse) Referring: Radha Burris [...] specimen was done by the nurse and urgent care technician using the patient's name and medical record number. Estimated blood loss was minimal. A single 3 mm nodule was found at the gastroesophageal junction, 39 cm from the incisors. Biopsies were taken with a cold forceps for histology. Verification of patient identification for the specimen was done by the nurse and urgent care technician using the patient's name and medical [...] and technici (more content not included)...PROVATION - [id number] Reason for visit Narrative* An interactive audio and video telecommunication system which permits real time communications between the patient (at the originating site) and provider (at the distant site) was utilized to providethis telehealth service. * Verbal consent was requested and obtained from YOLI ANTUNEZ on this date, 08/13/2022 03:15 PM, for a telehealth visit. [facility] [address] [place] Work Phone: 1([phone]) 519-799004-11-2023 Chief complaint Narrative - Reported* An interactive audio and video telecommunication system which permits real time communications between the patient (at the originating site) and provider (at the distant site) was utilized to providethis telehealth service. * Verbal consent was requested and obtained from YOLI ANTUNEZ on this date, 07/31/2022 12:30 PM, for a telehealth visit. * Swallow W[facility]-Bjawsyhglrwohy-Btlrpnw Work Phone: 1([phone]) [phone] History of Present illness Narrative* 67 year [...] esophagus and pill sticking in the vallecula [place]-Xakpaykgvfteme-Ipyfpws Work Phone: [phone]) [phone] Miscellaneous Notes* Telephone Encounter - Jonathan Pascual - 07/30/2022 3:40 PM EDT Received call from patient regarding Message Per Patient Local ERs do not understand patients symptoms, would like to know if he can receive response from provider urgently * Telephone Encounter - Jessica Mccoy Pss - 07/30/2022 3:13 PM EDT Patient last seen 05/31/2022, but had infusions 07/26/2022. documented in this encounterMercy Health [facility] Hospital04-06-2023 NoteHNO ID: [id number] Author: Eleonora Cabral RN Service: ? Author [...] with infusion , instructed on 45 day follow-up.[facility]04-06-2023 History of Present illness Narrative* Eleonora Cabral RN - 07/26/2022 1:52 PM EDT 13:35 Patient admitted to infusion unit and history reviewed, medications and allergies updated. Patient has 3/10 headache and no nausea, no dizziness at this time. Patient has first Vyepti infusion of 100 mg. 1424 Patinet discharged no problems with infusion , instructed on 45 day follow-up. documented in this encounterMercy Health [facility] Hospital04-03-2023 Miscellaneous Notes* Telephone Encounter - Fadumo Mckenzie - 07/23/2022 11:46 AM EDT Patient last seen on 05/31/22. Asked to follow up with Infusions. documented in this encounterMercy Health [facility] Hospital03-24-2023 Miscellaneous Notes* Telephone Encounter - Sarbjit Richardson APRN.CNP - 07/13/2022 4:04 PM EDT There are no results in [facility] from [facility] in imaging. When did he have them done? Can they fax the results and send the disc. Sarbjit documented in this encounterMercy Health [facility] Hospital02-13-2023 Miscellaneous Notes* Telephone Encounter - Sarbjit Richardson APRN.CNP - 06/04/2022 12:48 PM EST Orders for MRA/MRV to be mailed to patient. Sarbjit Richardson APRN.CNP documented in this encounterMercy Health [facility]sburg Hospital02-09-2023 Instructions* Patient Instructions* Sarbjit Richardson APRN.CNP - 05/31/2022 9:01 AM EST Greater Occipital Nerve Block Article in [place] [employer] Journal By: Bhavesh Boyd MD Many patients with chronic headache report that their pain typically arises from the neck or, more specifically, the base of the skull. Often that pain arises on one side or the other and extends forward to involve the top of the head, the caodaism, the forehead, the eye or some combination [...] give it at least one more try. https://americanheadachesociety.org/wp-content/uploads//Acxgwuvkv-Jrjng-P locks_August-2009.pdf documented in this encounterMercy Health Perrysburg Hospital02-09-2023 History of Present illness Narrative* Sarbjit Richardson APRN.NEETU - 05/31/2022 8:00 AM EST Headache Section [facility] Follow up visit May 31, 2022 [...] unrevealing and negative. I sent patient a Artwardly message with this information and we can try [facility] to see if this is migrainous as [...] other than aphasia. He was seen at [facility] for this previously (2020 note, migraine), and follows w/ Neurologist Dr. Wolff in [place]. His exam is entirely benign except he [...] up New Social History: Yes, still works [employer] New Family History: No Prior Therapies Duration [...] kidney disease) stage 3, GFR 30-59 ml/min ([facility]) Ex-smoker Gastric ulcer GERD (gastroesophageal reflux [...] osteopenia, and partially imaged atlantoaxial arthritic changes. Fishing Tackle Repairer (topogram) images: No additional findings. 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 Short and fdc memory, cognition and general fund of knowledge [...] Care Visit completed when applicable. Sarbjit Richardson APRN.KST OPERATOR The risks, benefits and anticipated outcomes of [...] which included preparing to see the patient, nigf-ee-yljp patient care, completing clinical documentation, obtaining and/or reviewing separately obtained history, performing a medically appropriate examination, counseling and educating the patient/family/caregiver, and ordering medications, tests, or procedures. Sarbjit Richardson APRN.NEETU Headache Section [facility] May 31, 2022 documented in this encounterMercy Health [facility]sburg Hospital09-16-2022 History of Present illness Narrative* Paul [...] discharge. Tad Corea MD Internal medicine, PGY-2 [facility], Jerry Lopez @TODAY@ 10:53 AM Attending Physician [...] MD Nephrology Attending Physician [facility] [place] 01/05/2022 * Dariela Walker MD - 01/05/2022 10:40 AM EDT Images from the original note were not included. [facility] Office: [phone] Mehdi Mcallister DO, Meliton Willard DO, Vicente [...] Quijano, KENYA, Brunilda Fuller, NEETU, Andria Rutherford, KST OPERATOR, Akila Franks, NEETU, Shivani Rascon, NEETU, Mayte Martinez CNP, Aliya Reyes PA-C, Esha Kumari, YAMILET, Monica Levy, KENYA, Marifer Dunne, KST OPERATOR, Rosie Longoria, NEETU, Nohelia Morris, NEETU [facility] IN-PATIENT SERVICE [facility] Progress Note Name: Yoli Antunez Acct: [id number] Room: [address] [place] [address] Day: 5 Admit Date: 12/31/2021 11:15 PM [...] improved to 2.5, bicarb 25 Brief History: 67-ulvb-nut-year-old with prior history of CKD 3, hypertension, prior TIA, paroxysmal A. fib, aortic root aneurysm presented with right lower quadrant and flank pain, initially started on 12/28/2021 when he was evaluated at [facility]. Imaging suggested possible epiploic appendicitis versus [...] type 12/31/2021 Yes EMELIA (acute kidney injury) (FORMERLY [facility]) 01/01/2022 Yes CKD (chronic kidney disease) stage 3, GFR 30-59 ml/min ([facility]) 01/01/2022 Yes Non-intractable vomiting with nausea 01/01/2022 Yes Jaundice 01/01/2022 Yes Lactic acid acidosis 01/01/2022 Yes Hyperglycemia 01/01/2022 Yes Paroxysmal A-fib ([facility]) 01/01/2022 Yes History of TIA (transient ischemic attack) 01/01/2022 Yes Apnea 01/01/2022 Yes History of kidney stones 01/01/2022 Yes Metabolic acidosis 01/03/2022 Yes History of peptic ulcer 01/01/2022 Yes Overview Signed 01/01/2022 2:21 AM by Darline Walden MD S/p egd at [facility] 08/2020 Plan: S/p cholecystectomy day3 -Continue Percocet [...] corrected by editing Spencer Grijalva MD MD, [facility] (), FACP 01/04/2022 1:31 PM [facility] * Dariela Walker MD - 01/04/2022 10:45 AM EDT Images from the original note were not included. [facility] Office: [phone] Mehdi Mcallister DO, Meliton Willard DO, Vicente [...] George MD, Octaviano Bolden MD, Julia Vasquez, KST OPERATOR, Joanne Hameed, [facility], Jazmine Huitron, [facility], Tono Braun, [facility], Annie Quijano, [facility], Brunilda Fuller, [facility], Andrai Rutherford, [facility], Akila Franks, [facility], Shivani Rascon, [facility], Mayte Martinez, [facility], DARNELL NelsonC, Esha Kumari, [facility], Monica Levy, [facility], Marifer Dunne, [facility], Rosie Longoria, [facility], Nohelia Morris, [facility] IN-PATIENT SERVICE [facility] Progress Note Name: Yoli Antunez Acct: [id number] Room: 0318/0318-01 Day: 4 Admit Date: 12/31/2021 11:15 PM PCP: Radha Price MD Code Status: Full Code Subjective: C/C: nausea,vomiting, fevers Interval History Status: improved. Patient indicates doing well no nausea vomiting. Continues to have left upper quadrant pain intermittently. No flatus or bowel movement yet . hemodynamically stable. Creatinine improved to 3.07 WBC 12.2 Brief History: 11-yvug-nlw-year-old with prior history of CKD 3, hypertension, prior TIA, paroxysmal A. fib, aortic root aneurysm presented with right lower quadrant and flank pain, initially started on 12/28/2021 when he was evaluated at [facility]. Imaging suggested possible epiploic appendicitis versus [...] by Darline Walden MD S/p egd at [facility] 08/2020 Plan: S/p cholecystectomy day2 -Continue Percocet [...] Progress Note PATIENT: YOLI ANTUNEZ CSN #: [id number] : 1955 ADMIT DATE: 12/31/2021 11:15 PM [...] RN CDS. Please call/text/PS with any questions; [phone]. Options provided: -- Sepsis, present on admission [...] 01/03/2022 4:35 PM * Zulemabaldomero Amita Ford, [employer] - KST OPERATOR - 01/03/2022 2:02 PM EDT [facility] Progress Note Yoli Antunez is a [...] results for input(s): LABIRON, TIBC, IRON, FERRITIN, [id number], FOLATE, OCCULTBLD in the last 72 hours. [...] patient. Janet Amita BRENNA Ford - NEETU [place], [place] Please note that this note was generated using a voice recognition dictation software. Although every effort was made to ensure the accuracy of this automated unionmelt operator, some errors in unionmelt operator may have occurred. Associated attestation - Juan [...] and primary team. Juan David Marr MD [facility]enter[facility] [place], [place] * Dariela Walker MD - 01/03/2022 9:30 AM EDT Images from the original note were not included. [facility] Office: [phone] Mehdi Mcallister DO, Meliton Willard DO, Vicente [...] George MD, Octaviano Bolden MD, Julia Vasquez, KST OPERATOR, Joanne Hameed, KST OPERATOR, Jazmine Huitron, KST OPERATOR, Tono Braun, KST OPERATOR, Annie Quijano, DNP, Brunilda Fuller, KST OPERATOR, Andria Rutherford, KST OPERATOR, Akila Franks, KST OPERATOR, Shivani Rascon, KST OPERATOR, Mayte Martinez, KST OPERATOR, Aliya Reyes PA-C, Esha Kumari, [facility], Monica Levy, [facility], Marifer Dunne, KST OPERATOR, Rosie Longoria, KST OPERATOR, Nohelia Morris, [facility] IN-PATIENT SERVICE [facility] Progress Note Name: Yoli Antunez Acct: [id number] Room: [address] [place] [address] Day: 3 Admit Date: 12/31/2021 11:15 PM [...] improved, lipase improved to 250 Brief History: 78-ficy-cpd-year-old with prior history of CKD 3, hypertension, prior TIA, paroxysmal A. fib, aortic root aneurysm presented with right lower quadrant and flank pain, initially started on 12/28/2021 when he was evaluated at [facility]. Imaging suggested possible epiploic appendicitis versus [...] results found for: POCPH, PHART, PH, POCPCO2, KBY2UGZ, PCO2, POCPO2, PO2ART, PO2, POCHCO3, QMA2RJQ, HCO3, NBEA, PBEA, BEART, BE, THGBART, THB, KCO1ETE, LIGK7MRV, A3SNLZRO, O2SAT, FIO2 Lab Results Component Value Date/Time [...] by Darline Walden MD S/p egd at [facility] 08/2020 Plan: S/p cholecystectomy day1 -Was started [...] from the original note were not included. [facility] Office: [phone] Mehdi Mcallister DO, Meliton Willard DO, Vicente [...] Martinez, NEETU, Aliya Reyes PA-C, Esha Kumari, WASHROOM OPERATOR, Moinca Levy, KENYA, Marifer Dunne, NEETU, Rosie Longoria, NEETU, Nohelia Morris, NEETU [facility] IN-PATIENT SERVICE [facility] Progress Note Name: Yoli Antunez Acct: [id number] Room: 0318/0318-01 IP Day: 2 Admit Date: [...] showed no hydronephrosis. Hemodynamically stable Brief History: 11-aeju-otr-year-old with prior history of CKD 3, hypertension, prior TIA, paroxysmal A. fib, aortic root aneurysm presented with right lower quadrant and flank pain, initially started on 12/28/2021 when he was evaluated at [facility]. Imaging suggested possible epiploic appendicitis versus [...] results found for: POCPH, PHART, PH, POCPCO2, FRF8QDE, PCO2, POCPO2, PO2ART, PO2, POCHCO3, BFX0HTS, HCO3, NBEA, PBEA, BEART, BE, THGBART, THB, THP9OJJ, TXTW4EYY, B0GXYZMT, O2SAT, FIO2 Lab Results Component Value Date/Time [...] type 12/31/2021 Yes EMELIA (acute kidney injury) ([facility]) 01/01/2022 Yes CKD (chronic kidney disease) stage 3, GFR 30-59 ml/min ([facility]) 01/01/2022 Yes Non-intractable vomiting with nausea 01/01/2022 Yes Jaundice 01/01/2022 Yes Lactic acid acidosis 01/01/2022 Yes Hyperglycemia 01/01/2022 Yes Paroxysmal A-fib ([facility]) 01/01/2022 Yes History of TIA (transient ischemic attack) 01/01/2022 Yes Apnea 01/01/2022 Yes History of kidney stones 01/01/2022 Yes History of peptic ulcer 01/01/2022 Yes Overview Signed 01/01/2022 2:21 AM by Darline Walden MD S/p egd at [facility] 08/2020 Plan: S/p cholecystectomy day0 - Increase [...] Islas MD - 01/02/2022 9:29 AM EDT [facility] Yoli Antunez [...] results for input(s): LABIRON, TIBC, IRON, FERRITIN, SSPOJBEM18, FOLATE, OCCULTBLD in the last 72 hours. [...] Rachel Islas MD Internal medicine resident, PGY1 [place], [place] Please note that this note was generated using a voice recognition dictation software. Although every effort was made to ensure the accuracy of this automated unionmelt operator, some errors in unionmelt operator may have occurred. Associated attestation - Juan [...] confirmed. Leonel Matos MD * Sara Villalobos [facility] - 01/01/2022 10:23 AM EDT Pharmacy Note [...] original note were not included. Occupational Therapy [facility] Occupational Therapy Not Seen Note DATE: 01/01/2022 NAME: Yoli Antunez : 1955 Patient not seen this date for Occupational Therapy due to: Patient independent with ADLs and functional tasks with no acute OT needs. Will defer OT evaluationat this time. Please reorder OT if future needs arise. Next Scheduled Treatment: N/A * Aydee Smart RN - 01/01/2022 8:52 AM EDT Talked to [facility] cardiac and they said his loop recorder was put in November 09 and it is a [employer] device model m301 LUX-DX. MRI notified. [facility] [employer] Work Phone: 1(758) 989-252309-16-2022 Hospital course Narrative* Dariela Walker MD - 01/05/2022 2:37 PM EDT Images from the original note were not included. [facility] Office: [phone] Mehdi Mcallister DO, Meliton Willard DO, Vicente [...] NEETU, Rosie Longoria, NEETU, Nohelia Morris, NEETU [facility] IN-PATIENT SERVICE [facility] Discharge Summary Patient ID: Yoli Antunez : 1955 ACCOUNT: [id number] Patient's PCP: Radha Price MD Admit Date: [...] Discharged Condition: good Hospital Stay: Hospital Course: 29-ojzx-efu-year-old with prior history of CKD 3, hypertension, prior TIA, paroxysmal A. fib, aortic root aneurysm presented with right lower quadrant and flank pain, initially started on 12/28/2021 when he was evaluated at [facility]. Imaging suggested possible epiploic appendicitis versus [...] Discharge plan: Disposition: Home Physician Follow Up: [facility] [address] [facility] [address] Schedule an appointment as soon as possible for a visit on 01/16/2022 For wound re-check post op from your Lap Ivy Elio Campos MD [address] [facility] [address] Follow up in 1 month(s) Diet: regular [...] Your Medications These medications were sent to [place], [place] - [address] [place] [address] - [phone] - [phone] [facility] [address] ciprofloxacin 500 MG tablet dilTIAZem 120 MG [...] in this patient'scare. documented in this [facility] Work Phone: [phone]) 586-497409-14-2022 Hospital Discharge instructions* Discharge Instructions* Sudheer Foote [...] be called to the nurse line at [phone] and please leave a message. * Attachments The following attachments cannot be sent through Care Everywhere. * Pancreatitis: Acute: General Info (Emirati) documented in this encounterB[facility] Work Phone: 1(674) 495-700907-28-2022 NotePROCEDURE: XR FOOT LT MIN 3 VIEWS [...] Electronically authenticated by: DONNELL DU Date: 2021-11-16 08:26[facility]06-13-2022 Evaluation note* Encounter Date Diagnosis Assessment [...] to call the office if symptoms return [facility] Other 05-11-2022 Evaluation note* Encounter Date Diagnosis [...] - G89.29) Continue with current treatment plan [facility] Other 04-14-2022 Evaluation note* Encounter Date Diagnosis [...] - G89.29) Continue with current treatment plan [facility] Other [id number] History of Present illness Narrative* Frances Sam [...] 01, 2021 8:21 AM [facility] History of Present illness Narrative* Dysphagia [...] for complaint except as noted in HPI. [facility] Work Phone: 1(984) 680-250906-01-2020 History of Present illness Narrative* Dysphagia with [...] for complaint except as noted in HPI. DM-Bbbulhqfnsqvgp-Tldduax [employer] Work Phone: 1(407) 946-996706-01-2020 History of Present illness Narrative* 67 year [...] for complaint except as noted in HPI. ZE-Wugdgdkcsghrdy-Ablzmvu Work Phone: 1(440) 893-353206-01-2020 History of Present illness Narrative* Dysphagia with [...] for complaint except as noted in HPI. -[facility] [facility] [address] Work Phone: 1([phone] 574-634901-30-2019 History and physical note Author Charlene Soria [facility] April 16, 2023 10:45am Note Date/Time April 16, 2023 10:45am [facility] [address] [place] [address] Gastroenterology H&P Signed Patient: Yoli Antunez Jr MR#: [id number] : 1955 Acct:[id number] Age/Sex: 67 / M Adm Date: 3 Loc: Room: Type: [facility] Attending Dr: Charlene Soria [...] signed by Charlene Soria MD> 04/16/23 1045 [facility] Work Phone: Consult note* Clinical Note Date No Information [facility] Work Phone: Discharge summary* Clinical Note Date No Information [facility] Work Phone: Evaluation noteNo [employer] [facility] [employer] Other Evaluation note* Diagnosis Gall stone pancreatitis- [...] Metabolic acidosis Acidosis documented in this encounter [facility] Work Phone: evaluation note* Diagnosis Chronic migraine without aura, intractable, without status migrainosus- Primary Aphasia Other specified transient cerebral ischemias [facility] Diagnosis Chronic migraine without aura, with intractable migraine, so stated, with status migrainosus- Primary [facility]* Diagnosis Chronic migraine without aura, with intractable migraine, so stated, with status migrainosus- Primary [facility]* Diagnosis Autonomic dysfunction- Primary Unspecified disorder of autonomic nervous system Dizzy spells Dizziness and giddiness documented [facility] this [facility]* Diagnosis Diarrhea, unspecified type- Primary Left lower quadrant abdominal pain documented in this encounter [facility] Work Phone: Evaluation note* Diagnosis Disturbance of skin sensation- Primary documented in this encounter [facility] note* Diagnosis Left lower quadrant abdominal pain documented in this encounter [facility] Work Phone: Evaluation note* Diagnosis Dysphagia, [...] Health Care Facility (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 of antithrombotics/antiplatelets 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 Personal history of transient ischemic attack (TIA), and cerebral infarction without residual deficits Personal history of nicotine dependence Allergy status to penicillin documented in this encounter [facility] Work Phone: Evaluation note* Diagnosis Obstructive [...] other antibiotic agents documented in this encounter [facility] Work Phone: Evaluation noteNo assessment information available [facility] Work Phone: Evaluation note* Diagnosis Orthostatic hypotension- Primary [place]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) documented [facility]* Diagnosis Shortness of breath documented in this encounter [facility] note* Type Assessment Date No Information [facility] Work Phone: History and physical note* Clinical Note Date No Information [facility] Work Phone: History general Narrative - Reported* [...] Hospitalization History see above Hospitalization History cardiac [facility] Other History of Present illness Narrative* Patient [...] and contact clinician with any concerns. [facility] [address] [place] Work Phone: History of Present illness Narrative* Mr. ANTUNEZ , 1955, referred for an initial consultation with me but established with this practice, with a long history of waking up feeling unrefreshed, excessive daytime fatigue. * [place] Sleepiness Scale Score is 16 /24. Fatigue [...] / 20 * Nasal Obstruction VAS- 0/10 JS-Icnkqkjpxhopjh-Tclue MAC1 302 Work Phone: Hospital Discharge instructions [...] -Follow up pathology -Follow up in the [facility] Work Phone: Instructions* Date Instruction Additional Infor mation No Information [facility] Work Phone: Progress note* Clinical Note Date No Information [facility] Work Phone: Reason for referral (narrative)* Reason For Referral No Information [facility] Work Phone: Summary Purpose Family History Unknown [...] Documents on File Type Date Recorded 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 ACP-Advance Directive ACP-Power of Sweat Band Separator Latest Code Status on File Code Status [...] OF CHEST Cameron Harmon MD [address] [place] [address] [place] [address] Referral ID Status Reason Start Date Expiration Date V isits Requested Visits Authorized [id number] Closed Auto-Generate d Referral 04/05/2021 05/05/2022 1 1 Specialty Diagnoses / Procedures Referred By Contac t Referred To Contact Radiology Diagnoses Left lower quadrant abdominal pain Procedures CT abdomen pelvis w IV contrast Yossi Chen MD [address] [facility] [address] [place] [address] Referral ID Status Reason Start Date Expiration Date Visits Requested Visits Authorized [id number] Authorized Perform Procedure 3 07/30/2023 1 1 Specialty Diagnoses / Procedures Referred By Contac t Referred To Contact Neurology Diagnoses Autonomic dysfunction Dizzy spells Procedures CONSULT TO NEUROLOGY OFFICE/OUTPATIENT [facility] HIGH MDM 60-74 MINUTES Dobrowski, Sarbjit J, LABORER [employer].KST OPERATOR [address] [place] [address] Referral ID Status Reason Start Date Expiration Date Visits Requested Visits Authorized [id number] Authorized PCP Requested Referral 12/31/2022 12/31/2023 1 1 Specialty Diagnoses / Procedures Referred By Contac t Referred To Contact MR IMAGING Diagnoses Chronic migraine without aura, intractable, without status migrainosus Aphasia Other specified transient cerebral ischemias Procedures MRV BRAIN WO IVCON MRA, HEAD W/O CONTRAST Sarbjit Rcihardson, LABORER [employer].KST OPERATOR [address] [place] [address] Mr Imaging Referral ID Status Reason Start Date Expiration Date Visits Requested Visits Authorized [id number] Pending Review Auto-Generat ed Referral 05/31/2022 06/30/2023 1 1 Specialty Diagnoses / Procedures Referred By Contac t Referred To Contact MR IMAGING Diagnoses Chronic migraine without aura, intractable, without status migrainosus Aphasia Other specified transient cerebral ischemias Procedures MRA BRAIN WO IVCON MRA, HEAD W/O CONTRAST Sarbjit Richardson, LABORER [employer].KST OPERATOR [address] [place] [address] Mr Imaging Referral ID Status Reason Start Date Expiration Date Visits Requested Visits Authorized [id number] Pending Review Auto-Generat ed Referral 05/31/2022 06/30/2023 [...] section and content) DATE CREATED AUTHOR 05/02/2018 [facility] DATE CREATED AUTHOR AUTHOR'S ORGANIZ ATION 03/12/2020 [facility] DATE CREATED AUTHOR AUTHOR'S ORGANIZ ATION 10/28/2020 [facility] DATE CREATED AUTHOR AUTHOR'S ORGANIZ ATION 05/25/2021 [facility] DATE CREATED AUTHOR AUTHOR'S ORGANIZ ATION 12/23/[address] [facility] DATE CREATED AUTHOR AUTHOR'S ORGANIZ ATION 01/17/2022 [facility] DATE CREATED AUTHOR AUTHOR'S ORGANIZ ATION 04/18/2022 [facility] dical Specialist DATE CREATED AUTHOR AUTHOR'S ORGANIZ ATION 06/07/2022 [facility] DATE CREATED AUTHOR AUTHOR'S ORGANIZ ATION 08/28/2022 [facility] DATE CREATED AUTHOR AUTHOR'S ORGANIZ ATION 10/26/2022 [facility] DATE CREATED AUTHOR AUTHOR'S ORGANIZ ATION 12/14/2022 [facility] DATE CREATED AUTHOR AUTHOR'S ORGANIZ ATION 12/14/2022 [facility] DATE CREATED AUTHOR AUTHOR'S ORGANIZ ATION 12/18/2022 [facility] DATE CREATED AUTHOR AUTHOR'S ORGANIZ ATION 02/02/2023 [facility] DATE CREATED AUTHOR AUTHOR'S ORGANIZ ATION 02/06/2023 [facility] DATE CREATED AUTHOR AUTHOR'S ORGANIZ ATION 06/02/2023 [facility] DATE CREATED AUTHOR AUTHOR'S ORGANIZ ATION 06/11/2023 [facility] DATE CREATED AUTHOR AUTHOR'S ORGANIZ ATION 12/26/2023 [facility] DATE CREATED AUTHOR AUTHOR'S ORGANIZ ATION 12/28/2023 [facility] DATE CREATED AUTHOR AUTHOR'S ORGANIZ ATION 01/21/2024 [facility] dical Specialists EPIC Reason for Visit (unrecogniz ed section and content) Reason Comments Infusion Headache Specialty Diagnoses / Procedures Referred By Yeny t Referred To Contact Diagnoses Chronic migraine without aura, with intractable migraine, so stated, with status migrainosus Sarbjit Richardson, LABORER [employer].KST OPERATOR [address] [place] [address] Neur Headache Main [address] [place] [address] Referral ID Status Reason Start Date Expiration Date V isits Requested Visits Authorized [id number] Authorized 05/31/2022 08/29/2022 99 99 Status Reason Specialty Diagnoses / Procedures Referred By Contact Referred To Contact Pending Review Infusion Therapy Diagnoses Migraine, unspecified, intractable, without status migrainosus Procedures AZ INJ MAGNESIUM SULFATE AZ LIDOCAINE INJECTION AZ DEXAMETHASONE SODIUM PHOS AZ DRUGS UNCLASSIFIED INJECTION Mayelin Wolff MD [address] [place] [address] Mal Op Infusion [address] [place] [address] Reason Comments Headache Reason Comments Received Outside Medical Records Reason Comments Results [facility] Reason Comments Follow-up Diarrhea Since hiatal hernia surgery. Reason Comments Results [facility] Specialty Diagnoses / Procedures Referred By Yeny thurston Referred To Contact Radiology Diagnoses Left lower quadrant abdominal pain Procedures CT abdomen pelvis w IV contrast Yossi Chen MD [address] [facility] [address] [place] [address] Referral ID Status Reason Start Date Expiration Date Visits Requested Visits Authorized [id number] Authorized Perform Procedure 3 07/30/2023 1 1 [...] OF CHEST Cameron Harmon MD [address] [place] [address] [place] [address] Referral ID Status Reason Start Date Expiration Date V isits Requested Visits Authorized [id number] Closed Auto-Generate d Referral 04/05/2021 05/05/2022 1 [...] Roly Delong RN)1700 (Given - Provider: Roly eDlong RN) 0429 (Given - Provider: Ritu Sosa [...]
Care Teams (unrecognized sec tion and content) Occ Med Physician Relationship Specialty Start Date End Date Radha Price MD [address] [place] [address] [id number] PCP - General Family Medicine 10/01/17 Occ Med Physician Relationship Specialty Start Date End Date Radha Burris MD [address] [place] [address] PCP - General Internal Medicine 01/14/20 Esther Grey, DO [address] [facility] [address] [place] [address] Physician Electrophysiology 01/26/20 Occ Med Physician Relationship Specialty Start Date End Date Radha Burris [address] [place] [phone] PCP - General Family Medicine 10/09/17 Elian Ceballos MD [address] [place] [address] Primary Staff Physician Cardiology 12/01/20 Herminia Roland MD [address] [facility] [place] [address] Primary Staff Physician Cardiology 02/01/21 Occ Med Physician Relationship Specialty Start Date End Date Radha Burris [address] [place] [phone] PCP - General Family Medicine 10/09/17 Elian Ceballos MD [address] [place] [address] Primary Staff Physician Cardiology 12/01/20 Herminia Roland MD [address] [facility] [place] [address] Primary Staff Physician Cardiology 02/01/21 Occ Med Physician Relationship Specialty Start Date End Date FatumaRadha Tono [address] [place] [phone] PCP - General Family Medicine 10/09/17 Elian Ceballos MD [address] [place] [address] Primary Staff Physician Cardiology 12/01/20 Herminia Roland MD [address] [facility] [place] [facility] [place] [address] Primary Staff Physician Cardiology 02/01/21 Occ Med Physician Relationship Specialty Start Date End Date FatumaRadha cantu [address] [place] [phone] PCP - General Family Medicine 10/09/17 Elian Ceballos MD [address] [facility] [place] [facility] [place] [address] Primary Staff Physician Cardiology 12/01/20 Herminia Roland MD [address] [facility] [place] [facility] [place] [address] Primary Staff Physician Cardiology 02/01/21 Occ Med Physician Relationship Specialty Start Date End Date FatumaRadha cantu [address] [place] [phone] PCP - General Family Medicine 10/09/17 Elian Ceballos MD [address] [facility] [place] [facility] [place] [address] Primary Staff Physician Cardiology 12/01/20 Herminia Roland MD [address] [place] [address] Primary Staff Physician Cardiology 02/01/21 Occ Med Physician Relationship Specialty Start Date End Date Radha Burris [address] [place] [phone] PCP - General Family Medicine 10/09/17 Elian Ceballos MD [address] [facility] [place] [facility] [place] [address] Primary Staff Physician Cardiology 12/01/20 Herminia Roland MD [address] [place] [address] Primary Staff Physician Cardiology 02/01/21 Occ Med Physician Relationship Specialty Start Date End Date Radha Burris [address] [place] [phone] PCP - General Family Medicine 10/09/17 Elian Ceballos MD [address] [place] [address] Primary Staff Physician Cardiology 12/01/20 Herminia Roland MD [address] [place] [address] Primary Staff Physician Cardiology 02/01/21 Occ Med Physician Relationship Specialty Start Date End Date FatumaRadha [address] [place] [phone] PCP - General Family Medicine 10/09/17 Elian Ceballos MD [address] [place] [address] Primary Staff Physician Cardiology 12/01/20 Herminia Roland MD [address] [place] [address] Primary Staff Physician Cardiology 02/01/21 Occ Med Physician Relationship Specialty Start Date End Date Radha Burris [address] [place] [address] PCP - General Family Medicine 10/09/17 Elian Ceballos MD [address] [place] [address] Primary Staff Physician Cardiology 12/01/20 Hermiina Roland MD [address] [place], [place] [phone] Primary Staff Physician Cardiology 02/01/21 Occ Med Physician Relationship Specialty Start Date End Date Radha Burris [address] [place] [address] PCP - General Family Medicine 10/09/17 Elian Ceballos MD [address] [place] [address] Primary Staff Physician Cardiology 12/01/20 Herminia Roland MD [address] [place] [address] Primary Staff Physician Cardiology 02/01/21 Occ Med Physician Relationship Specialty Start Date End Date Radha Burris [address] [place] [address] PCP - General Family Medicine 10/09/17 Elian Ceballos MD [address] [place] [address] Primary Staff Physician Cardiology 12/01/20 Herminia Roland MD [address] [place] [address] Primary Staff Physician Cardiology 02/01/21 Occ Med Physician Relationship Specialty Start Date End Date Radha Burris MD [address] [phone] PCP - General 03/22/20 Occ Med Physician Relationship Specialty Start Date End Date Radha Burris [address] [place] [address] PCP - General Family Medicine 10/09/17 Elian Ceballos MD [address] [place], [place] [phone] Primary Staff Physician Cardiology 12/01/20 Herminia Roland MD [address] [place] [address] Primary Staff Physician Cardiology 02/01/21 Occ Med Physician Relationship Specialty Start Date End Date Radha Burris [address] [place] [phone] PCP - General Family Medicine 10/09/17 Elian Ceballos MD [address] [place], [place] [phone] Primary Staff Physician Cardiology 12/01/20 Herminia Roland MD [address] [place] [address] Primary Staff Physician Cardiology 02/01/21 Occ Med Physician Relationship Specialty Start Date End Date Radha Burris MD [address] [place] [address] PCP - General 03/22/20 Occ Med Physician Relationship Specialty Start Date End Date Radha Burris MD [address] [place] [address] PCP - General 03/22/20 Occ Med Physician Relationship Specialty Start Date End Date Radha Burris MD [address] [place] [address] PCP - General 03/22/20 Team Status: Active Member Role Status Dates Radha Burris MD Primary Care Provide r Active Team Status: Inactive Member Role Status Dates Radha Burris MD Primary Care Provide r Active Charlene Soria MD Attending Provider Active Occ Med Physician Relationship Specialty Start Date End Date Radha Burris MD [address] [place] [address] PCP - General Internal Medicine 01/14/20 Esther Grey DO [address] [place] [address] [place] [address] Physician Electrophysiology 01/26/20 Occ Med Physician Relationship Specialty Start Date End Date Radha Burris [address] [place] [phone] PCP - General Family Medicine 10/09/17 Elian Ceballos MD [address] [place] [address] Primary Staff Physician Cardiology 12/01/20 Herminia Roland MD [address] [place] [address] Primary Staff Physician Cardiology 02/01/21 Occ Med Physician Relationship Specialty Start Date End Date Radha Burris MD [address] [place] [address] PCP - ACO Reach 09/13/22 Radha Burris MD [address] [place] [address] PCP - General Family Medicine 09/20/22 Team [...] June 10, 2023 End: June 10, 2023 Occ Med Physician Relationship Specialty Start Date End Date Radha Burris MD [address] [place] [address] PCP - General Internal Medicine 01/14/20 Esther Grey DO [address] [facility] [place] [address] Physician Electrophysiology 01/26/20 Name Effective Dates (start - stop) Status Members No Information Source Comments (unrecognize d section and content) In the event this informatio n is protected by the Federal Confidentiality of Alcohol and Drug Abuse Patient Records regulations: The Federal rules restrict any use of the information to criminally investigate or prosecute any alcohol or drug abuse patient.[facility] the event this information is protected by the Federal Confidentiality of Alcohol and Drug Abuse Patient Records regulations: The Federal rules restrict any use of the information to criminally investigate or prosecute any alcohol or drug abuse patient.[facility] HospitalIn the event this information is protected by the Federal Confidentiality of Alcohol and Drug Abuse Patient Records regulations: The Federal rules restrict any use of the information to criminally investigate or prosecute any alcohol or drug abuse patient.[facility] HospitalIn the event this information is protected by the Federal Confidentiality of Alcohol and Drug Abuse Patient Records regulations: The Federal rules restrict any use of the information to criminally investigate or prosecute any alcohol or drug abuse patient.[facility] HospitalIn the event this information is protected by the Federal Confidentiality of Alcohol and Drug Abuse Patient Records regulations: The Federal rules restrict any use of the information to criminally investigate or prosecute any alcohol or drug abuse patient.[facility] HospitalIn the event this information is protected by the Federal Confidentiality of Alcohol and Drug Abuse Patient Records regulations: The Federal rules restrict any use of the information to criminally investigate or prosecute any alcohol or drug abuse patient.[facility] HospitalIn the event this information is protected by the Federal Confidentiality of Alcohol and Drug Abuse Patient Records regulations: The Federal rules restrict any use of the information to criminally investigate or prosecute any alcohol or drug abuse patient.[facility] HospitalIn the event this information is protected by the Federal Confidentiality of Alcohol and Drug Abuse Patient Records regulations: The Federal rules restrict any use of the information to criminally investigate or prosecute any alcohol or drug abuse patient.[facility] HospitalIn the event this information is protected by the Federal Confidentiality of Alcohol and Drug Abuse Patient Records regulations: The Federal rules restrict any use of the information to criminally investigate or prosecute any alcohol or drug abuse patient.[facility] HospitalIn the event this information is protected by the Federal Confidentiality of Alcohol and Drug Abuse Patient Records regulations: The Federal rules restrict any use of the information to criminally investigate or prosecute any alcohol or drug abuse patient.[facility] HospitalIn the event this information is protected by the Federal Confidentiality of Alcohol and Drug Abuse Patient Records regulations: The Federal rules restrict any use of the information to criminally investigate or prosecute any alcohol or drug abuse patient.[facility] HospitalIn the event this information is protected by the Federal Confidentiality of Alcohol and Drug Abuse Patient Records regulations: The Federal rules restrict any use of the information to criminally investigate or prosecute any alcohol or drug abuse patient.[facility] HospitalIn the event this information is protected by the Federal Confidentiality of Alcohol and Drug Abuse Patient Records regulations: The Federal rules restrict any use of the information to criminally investigate or prosecute any alcohol or drug abuse patient.[facility] HospitalIn the event this information is protected by the Federal Confidentiality of Alcohol and Drug Abuse Patient Records regulations: The Federal rules restrict any use of the information to criminally investigate or prosecute any alcohol or drug abuse patient.[facility] HospitalIn the event this information is protected by the Federal Confidentiality of Alcohol and Drug Abuse Patient Records regulations: The Federal rules restrict any use of the information to criminally investigate or prosecute any alcohol or drug abuse patient.[facility] HospitalIn the event this information is protected by the Federal Confidentiality of Alcohol and Drug Abuse Patient Records regulations: The Federal rules restrict any use of the information to criminally investigate or prosecute any alcohol or drug abuse patient.[facility] HospitalIn the event this information is protected by the Federal Confidentiality of Alcohol and Drug Abuse Patient Records regulations: The Federal rules restrict any use of the information to criminally investigate or prosecute any alcohol or drug abuse patient.[facility] FOR RECORDS PERTAINING TO PATIENTS WHO [...] BE BASED ON THE PRIMARY CLINICAL RECORDS. [facility]. provides no warranty or guarantee of the accuracy or completeness of information in this document.
--- NOTE | 2024-01-25 12:35 | PC.NURSE ---
admitted to 274 from ER. ambulated to chair without assistance. a/o, c/o 1/ chest tightness and n/t to hands. meal delivered, oriented to room and call light.
[2024-01-25] MEDS: METOPROLOL TARTRATE 50 MG TABLET PO (12:43)
--- NOTE | 2024-01-25 14:33 | P.HP_ITS ---
HPI H&P: HPI History of Present Illness Chief complaint: CHEST PAIN, DIZZY, AFIB RVR Narrative: 68 y/o male to ER with chest pain. Woke up from sleep with pain and heaviness in mid chest. Pain radiated into left arm. History of afib and in NSR for about 4 years after 3rd ablation. Pacemaker placed last year and diagnosed with autonomic dysfunction. Stopped all home heart medications. Reports palpitations off and on for the past month and chest pain off and on. Pain worse and persisted and to ER. Found rapid afib and given IV cardizem. CE negative 2. Pulse improved but remained in afib and admitted on cardizem drip. Opioid HPI Opioid Management Most Recent Pain and Opioid Data: Last Pain Scale 1 01/25/24 13:00 Last Pain Assessment 01/25/24 14:00 Last ORT Total Score 0 01/25/24 12:18 Last ORT Risk Category Low Risk 01/25/24 12:18 Review of Systems ROS Constitutional Denies: fever, chills or fatigue Cardiovascular Reports: chest pain and palpitations; Denies: edema or lightheadedness Respiratory Denies: shortness of breath, cough or wheezing Gastrointestinal Denies: abdominal pain, nausea, vomiting or diarrhea Genitourinary Denies: painful urination PFSH PFS Medical History (Updated 01/25/24 @ 14:40 by Tyson Nettles MD) Presence of Watchman left atrial appendage closure device ?Z95.818 - Presence of other cardiac implants and grafts (ICD-10) Laceration Paresthesia ?R20.2 - Paresthesia of skin (ICD-10) Chest pain ?R07.9 - Chest pain, unspecified (ICD-10) Cellulitis of finger of left hand ?L03.012 - Cellulitis of left finger (ICD-10) Angina at rest ?I20.89 - Other forms of angina pectoris (ICD-10) Atrial fibrillation ?I48.91 - Unspecified atrial fibrillation (ICD-10) Pacemaker ?Z95.0 - Presence of cardiac pacemaker (ICD-10) Chronic kidney disease ?N18.9 - Chronic kidney disease, unspecified (ICD-10) Surgical History (Updated 01/25/24 @ 12:30 by Rosa Abreu) History of cholecystectomy ?Z90.49 - Acquired absence of other specified parts of digestive tract (ICD- 10) History of hernia repair ?Z98.890 - Other specified postprocedural states (ICD-10) ?Z87.19 - Personal history of other diseases of the digestive system (ICD-10) Social History Smoking status: Former smoker Little interest or pleasure in doing things: not at all Feeling down, depressed, or hopeless: not at all Meds Home Medications and Allergies Home Medications ?Medication ?Instructions ?Recorded ?Confirmed ?Type levothyroxine 150 mcg tablet 150 mcg PO .COMPLEX 01/16/23 01/25/24 History aspirin 81 mg tablet,delayed 81 mg PO DAILY 05/17/23 01/25/24 History release (Adult Low Dose Aspirin) ergocalciferol (vitamin D2) 1,250 50,000 unit PO QWEEK 05/17/23 01/25/24 History mcg (50,000 unit) capsule metoprolol tartrate 25 mg tablet 25 mg PO BID 01/25/24 01/25/24 History Allergies Allergy/AdvReac Type Severity Reaction Status Date / Time Penicillins Allergy Intermediate Verified 10/05/23 08:40 vancomycin Allergy Intermediate Verified 10/05/23 08:40 TYCOSYN Allergy Intermediate Uncoded 10/05/23 08:40 Exam Constitutional Vital Signs, click to edit/add: Last Vital Signs Temp 97.7 F 01/25/24 07:28 Pulse 108 H 01/25/24 13:00 Resp 21 H 01/25/24 13:00 BP 121/93 H 01/25/24 13:00 Pulse Ox 97 01/25/24 13:00 O2 Del Method Room Air 01/25/24 12:18 Documenting provider has reviewed patient's vital signs: yes Common normals: no apparent distress, oriented x3 and alert HENMT Common normals: normocephalic Eye Common normals: PERRL and EOMs intact bilaterally Respiratory Common normals: normal respiratory effort and clear to auscultation bilaterally Cardio Common normals: regular rate, no gallops, no murmurs and no rub Rhythm: abnormal rhythm irregularly irregular GI Common normals: Normal to inspection, nondistended, normoactive bowel sounds present and non-tender Extremity Common normals: no pedal edema Results Labs Labs: Short CBC 01/25/24 Range/Units 07:40 WBC 10.5 (4.0-11.0) 10^3/uL Hgb 14.8 (14.0-18.0) g/dL Hct 45.1 (42.0-54.0) % Plt Count 231 (150-450) 10^3/uL BMP 01/25/24 07:40 Sodium 141 Potassium 3.7 Chloride 104 Carbon Dioxide 19.3 L BUN 27.0 H Creatinine 1.46 H Glucose 152 H Calcium 6.7 L Assessment and Plan Assessment and Plan (1) Atrial fibrillation with RVR: (2) Chest pain: Qualifiers: Chest pain type: precordial pain Qualified Code(s): R07.2 - Precordial pain (3) Hypothyroid: Qualifiers: 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 type: acquired Qualified Code(s): E03.9 - 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, unspecified (4) Autonomic dysfunction: Plan Presented with rapid afib and admitted on cardizem drip. Start oral metoprolol and wean cardizem as tolerated. Repeat troponin. Monitor vitals. TSH normal and resume synthroid. Presence of Watchman device and anticoagulation not indicated. If stable possibly home in am.
[2024-01-25 15:04] LABS: Troponin I High Sensitivity 4.7 pg/mL (4.0-76.1)
[2024-01-26] VITALS (49 sets, daily range): BP systolic 96–112; BP diastolic 63–80; PULSE 75–119; TEMP 36.4–36.8; O2SAT 92–96
--- NOTE | 2024-01-26 05:00 | ECG_ITS ---
[facility] Test Date: 2024-01-26 Pat Name: YOLI ANTUNEZ Department: Room: [facility] Gender: Male Associate Project Manager: : 1955 Requested By: FERCHO CONRAD Order Number: [id number] Reading MD: LARA OJEDA Measurements Intervals [place] Rate: 79 P: -18698 [place]: -86401 QRS: 28 QRSD: 64 T: 254 QT: 364 QTc: 399 Interpretive Statements 1250 Atrial flutter [address] depression 4364 Twave abnormality, possible anterolateral ischemia 4664 Twave abnormality, possible inferior ischemia 9150 abnormal ECG Electronically Signed On 01-26-2024 20:56:26 EDT by LARA OJEDA
[2024-01-26] MEDS: LEVOTHYROXINE SODIUM 75 MCG TABLET 150 MCG PO (05:32)
[2024-01-26 05:40] LABS: Basophils Absolute Auto 0.1 10^3/uL (0.0-0.1); Basophils Percent Auto 0.6 % (0.2-2.0); Eosinophils Absolute Auto 0.2 10^3/uL (0.0-0.7); Eosinophils Percent Auto 2.1 % (0.9-7.0); Hematocrit 43.7 % (42.0-54.0); Hemoglobin 14.2 g/dL (14.0-18.0); Immature Granulocytes Abs Auto 0.13 10^3/uL (0.00-0.03); Immature Granulocytes Pct Auto 1.2 % (0.0-0.5); Lymphocytes Absolute Auto 2.7 10^3/uL (1.2-3.8); Lymphocytes Percent Auto 25.6 % (20.5-60.0); Mean Corpuscular HGB Conc 32.5 g/dL (29.9-35.2); Mean Corpuscular Hemoglobin 27.7 pg (25.9-34.0); Mean Corpuscular Volume 85.2 fL (80.0-94.0); Mean Platelet Volume 9.9 fL (9.5-13.5); Monocytes Percent Auto 9.3 % (1.7-12.0); Neutrophils Absolute Auto 6.4 10^3/uL (1.4-6.5); Neutrophils Percent Auto 61.2 % (43.0-75.0); Platelet Count 212 10^3/uL (150-450); Red Blood Count 5.13 10^6/uL (4.70-6.10); Red Cell Distribution Width 14.6 % (11.0-15.0); White Blood Count 10.5 10^3/uL (4.0-11.0)
[2024-01-26 05:49] LABS: Anion Gap 11.1; Calcium 6.6 mg/dL (8.5-10.1); Carbon Dioxide 25.6 mmol/L (21.0-32.0); Chloride 105 mmol/L (98-107); Estimated GFR (African America 54 (>=60 mL/min/1.73m^2); Estimated GFR (Non-African Ame 44 (>=60 mL/min/1.73m^2); Glucose 94 mg/dL (74-106); Potassium 3.7 mmol/L (3.5-5.1); Sodium 138 mmol/L (136-145)
[2024-01-26] MEDS: METOPROLOL TARTRATE 50 MG TABLET PO ×2 (08:34→20:27)
[2024-01-26] MEDS: ASPIRIN 81 MG TABLET.DR PO (08:34)
[2024-01-26] MEDS: MIDODRINE HCL 5 MG TABLET 10 MG PO ×2 (11:57→17:50)
--- NOTE | 2024-01-26 13:43 | PM.PN ---
Progress Note: Subjective Subjective Interval history: Off cardizem drip and on oral metoprolol. Started having low BP and metoprolol held last night. Continues to have tachycardia and chest tightness if up and moving. Still lightheaded when up and moving. CE negative. No SOB or cough. Normal appetite and no emesis or diarrhea. Exam Constitutional Vital Signs, click to edit/add: Last Vital Signs Temp 97.6 F 01/26/24 12:47 Pulse 78 01/26/24 12:47 Resp 16 01/26/24 12:47 BP 109/76 01/26/24 12:47 Pulse Ox 94 L 01/26/24 12:47 O2 Del Method Room Air 01/25/24 20:36 Documenting provider has reviewed patient's vital signs: yes Common normals: no apparent distress, oriented x3 and alert HENMT Common normals: normocephalic Eye Common normals: PERRL and EOMs intact bilaterally Respiratory Common normals: normal respiratory effort and clear to auscultation bilaterally Cardio Common normals: regular rate, no gallops, no murmurs and no rub Rhythm: abnormal rhythm irregularly irregular GI Common normals: Normal to inspection, nondistended, normoactive bowel sounds present and non-tender Extremity Common normals: no pedal edema Progress Note: Objective Labs Labs: Short CBC 01/26/24 Range/Units 05:23 WBC 10.5 (4.0-11.0) 10^3/uL Hgb 14.2 (14.0-18.0) g/dL Hct 43.7 (42.0-54.0) % Plt Count 212 (150-450) 10^3/uL BMP 01/26/24 05:23 Sodium 138 Potassium 3.7 Chloride 105 Carbon Dioxide 25.6 BUN 25.0 H Creatinine 1.56 H Glucose 94 Calcium 6.6 L Progress Note: A&P Assessment and Plan (1) Atrial fibrillation with RVR: (2) Chest pain: Qualifiers: Chest pain type: precordial pain Qualified Code(s): R07.2 - Precordial pain (3) Hypothyroid: Qualifiers: 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 type: acquired Qualified Code(s): E03.9 - 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, unspecified (4) Autonomic dysfunction: Plan Remains in afib and low BP due to autonomic dysfunction. Start midodrine and continue metoprolol. Monitor vitals. Consult cardiology in am.
[2024-01-27] VITALS (12 sets, daily range): BP systolic 114–135; BP diastolic 75–93; PULSE 75–124; TEMP 36.3–36.5; O2SAT 93–96
[2024-01-27] MEDS: LEVOTHYROXINE SODIUM 75 MCG TABLET 150 MCG PO (05:33)
[2024-01-27 05:57] LABS: Thyroid Stimulating Hormone 1.847 uIU/mL (0.358-3.740)
--- NOTE | 2024-01-27 06:55 | CA_ITS ---
Patient Name: YOLI ANTUNEZ MR#: [id number] : 1955 Exam Date: 01/27/2024 Ordering Doctor: SHAIKH Jaime MCGRATH . ECHOCARDIOGRAM REPORT PROCEDURE: CA ECHO LIMITED INDICATIONS: LVEF COMPARISON: None. DESCRIPTION: Limited ECHOCARDIOGRAM Real-time transthoracic echocardiography with 2D and M-mode performed. QUALITY: Technical quality was good. LEFT VENTRICLE: Normal chamber size. Moderate concentric left ventricular hypertrophy. Global left ventricular systolic function is normal. LV EF: Estimated left ventricular ejection fraction is 60%. DIASTOLIC: ATRIAL SEPTUM: LEFT ATRIUM: Mild dilatation. RIGHT ATRIUM: Mild dilatation. RIGHT VENTRICLE: Normal chamber size. Normal right ventricular systolic function. TRICUSPID VALVE: Normal mobility and thickness. MITRAL VALVE: Normal mobility and thickness. There is no mitral annular calcification. AORTIC VALVE: Normal trileaflet appearance. No visible sclerosis. Normal leaflet mobility. AORTIC ROOT: Normal diameter and appearance. PULMONIC VALVE: Normal thickness and mobility. PERICARDIUM: No evidence of pericardial effusion. IVC: PLEURA: CONCLUSION: 1. Moderate concentric left ventricular hypertrophy with normal systolic function. Estimated LVEF is 60%. 2. Normal right ventricular size and systolic function. 3. Mild biatrial dilatation. 4. No pericardial effusion. Adult Echocardiography Procedure Report Left Ventricle LVEDD (3.7 - 5.6 cm): 4.30 cm LVESD (2.2 - 4.0 cm): 2.99 cm LVIVS thickness (0.6 - 1.2 cm): 1.44 cm LVPW thickness (0.5 - 1.0 cm): 1.26 cm LVOT Diameter 2.36 cm Left Ventricular Ejection Fraction: 60 % Left Atrium LA Volume Index (2D A2C): 29.49 ml/m2 Left Atrium Systolic Dimension: 4.57 cm Mitral Valve Right Ventricle RV Internal Diastolic Dimension: 3.43 cm Aorta AO Root Diam: 3.98 cm Ascending Ao Diam: 4.07 cm Aortic Valve Tricuspid Valve Pulmonic Valve Right Atrium Right Atrium Systolic Pressure: 50.59 ml, 50.59 ml Dictated by: Mono Santana M.D. on 01/27/2024 at 17:29 Approved by: Mono Santana M.D. on 01/27/2024 at 17:31
[2024-01-27] MEDS: ASPIRIN 81 MG TABLET.DR PO (08:33)
[2024-01-27 08:53] LABS: Basophils Absolute Auto 0.1 10^3/uL (0.0-0.1); Basophils Percent Auto 0.8 % (0.2-2.0); Eosinophils Absolute Auto 0.2 10^3/uL (0.0-0.7); Eosinophils Percent Auto 2.3 % (0.9-7.0); Hematocrit 46.6 % (42.0-54.0); Immature Granulocytes Abs Auto 0.09 10^3/uL (0.00-0.03); Lymphocytes Percent Auto 21.6 % (20.5-60.0); Mean Corpuscular HGB Conc 32.2 g/dL (29.9-35.2); Mean Corpuscular Hemoglobin 27.5 pg (25.9-34.0); Mean Corpuscular Volume 85.5 fL (80.0-94.0); Monocytes Absolute Auto 0.7 10^3/uL (0.3-0.8); Monocytes Percent Auto 7.3 % (1.7-12.0); Neutrophils Absolute Auto 6.2 10^3/uL (1.4-6.5); Platelet Count 220 10^3/uL (150-450); Red Blood Count 5.45 10^6/uL (4.70-6.10); Red Cell Distribution Width 14.7 % (11.0-15.0); White Blood Count 9.2 10^3/uL (4.0-11.0)
[2024-01-27 09:28] LABS: Alanine Aminotransferase 41 U/L (16-63); Albumin Level 3.6 g/dL (3.4-5.0); Alkaline Phosphatase 69 U/L (46-116); Anion Gap 16.2; Aspartate Amino Transferase 24 U/L (15-37); BUN Creatinine Ratio 21.3; Bilirubin Total 0.7 mg/dL (0.2-1.0); Carbon Dioxide 22.6 mmol/L (21.0-32.0); Chloride 106 mmol/L (98-107); Estimated GFR (African America 56 (>=60 mL/min/1.73m^2); Estimated GFR (Non-African Ame 46 (>=60 mL/min/1.73m^2); Globulin 3.5 g/dL; Glucose 145 mg/dL (74-106); Potassium 3.8 mmol/L (3.5-5.1); Sodium 141 mmol/L (136-145); Total Protein 7.1 g/dL (6.4-8.2)
--- NOTE | 2024-01-27 09:53 | CM.NOTE ---
Rounds made with Dr. Ang, discussed with pt about clinical diagnosis and elevated HR. Discussed with pt about medications for controlling elevated HR. Cardiology unavailable today for consult, Dr. Ang will reach out to configuration engineer candy butcher for further recommendations. Dr. Ang will re-evaluate patient this afternoon after medication adjustments.
[2024-01-27] MEDS: DIGOXIN 500 MCG/2 ML AMPUL 125 MCG IV (10:54)
[2024-01-27] MEDS: METOPROLOL TARTRATE 50 MG TABLET 25 MG PO (10:55)
--- NOTE | 2024-01-27 11:31 | CM.NOTE ---
Medicare Outpatient Observation Notice discussed with pt, pt verbalizes understanding and signs paperwork. Original given to pt and copy placed in pt's chart.
[2024-01-27] MEDS: MIDODRINE HCL 5 MG TABLET PO (11:59)
--- NOTE | 2024-01-27 13:37 | P.IMPN_ITS ---
Progress Note: A&P Assessment and Plan (1) Unstable angina: Assessment and Plan: Unstable angina, with CP at rest that is worse on exertion. Recurrent CP, lasts for a few minutes and resolves. ST depression upon admission, afib with RVR. No acute findings otherwise. Troponins -negative. Hx of non obs CAD on [facility] 4-5 years ago. Normal Lexiscan and ECHO 06/15. D/w cardiology - he will need LHC for unstable angina. He has hx of PUD and had Watchman for GI bleeding while on Eliquis. I discussed starting him on Heparin but he prefers to not receive any anticoagulation due to his bleeding risk Patient will need to be transferred to [facility] for higher level of care, LHC and cardiology evaluation. (2) Atrial fibrillation with RVR: Assessment and Plan: HR on average 100-110. He was previously taken off of Lopressor due to hy potension. He is very reluctant to use Lopressor as he fears that he will develop hypotension from it. He reluctantly agreeed to take PO lopressor if he was using Midodrine with it. I also ordered one time dose of IV digoxin for him. ECHO to assess cardiac structure performed - report not available for review. Not on AC for stroke px due hx of GIB and had Watchmann for stroke px. (3) Hypothyroid: Assessment and Plan: C/w levothyroxine. TSH at goal Qualifiers: 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 type: acquired Qualified Code(s): E03.9 - 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, unspecified (4) Orthostatic hypotension dysautonomic syndrome: Assessment and Plan: Intermittent hypotension and orthostasis associated with it. Had Tilt table as outpatient and was told that he had dysautonomia. Was taken off of Lopressor as outpatient due to hypotension. During admission, his lopressor has been withheld on few occasions due to hypotension, limiting out ability to control his HR. Started on low dose midodrine 5 tid. BP has improved on it. Internal Medicine - PN: Subj Subjective Interval history: Seen and examined. Continues to have intermittent chest pain at worse. CP is worse on exertion. BP is better with addition of Midodrine but HR is still on average 100-110 Exam Constitutional Vital Signs, click to edit/add: Last Vital Signs Temp 97.7 F 01/27/24 05:32 Pulse 106 H 01/27/24 12:00 Resp 18 01/27/24 05:32 BP 115/78 01/27/24 08:28 Pulse Ox 93 L 01/27/24 05:32 O2 Del Method Room Air 01/27/24 05:32 Documenting provider has reviewed patient's vital signs: yes Common normals: no apparent distress, oriented x3 and alert Respiratory Common normals: normal respiratory effort and clear to auscultation bilaterally Cardio Common normals: no gallops, no murmurs and no rub Rhythm: abnormal rhythm irregularly irregular Extremity Common normals: no pedal edema Internal Medicine - PN: Obj Da Labs Labs: Laboratory Results - last 24 hr 01/27/24 01/27/24 05:18 08:43 WBC 9.2 RBC 5.45 Hgb 15.0 Hct 46.6 MCV 85.5 MCH 27.5 MCHC 32.2 RDW 14.7 Plt Count 220 MPV 10.0 Neut % (Auto) 67.0 Lymph % (Auto) 21.6 [place] % (Auto) 7.3 Eos % (Auto) 2.3 Baso % (Auto) 0.8 Neut # (Auto) 6.2 Lymph # (Auto) 2.0 [place] # (Auto) 0.7 Eos # (Auto) 0.2 Baso # (Auto) 0.1 Abs Immat Gran (auto) 0.09 H Imm/Tot Granulo (auto) 1.0 H Sodium 141 Potassium 3.8 Chloride 106 Carbon Dioxide 22.6 Anion Gap 16.2 BUN 32.0 H Creatinine 1.50 H Est GFR ( Amer) 56 L Est GFR (Non-Af Amer) 46 L BUN/Creatinine Ratio 21.3 Glucose 145 H Calcium 7.0 L Total Bilirubin 0.7 AST 24 ALT 41 Alkaline Phosphatase 69 Total Protein 7.1 Albumin 3.6 Globulin 3.5 Albumin/Globulin Ratio 1.0 TSH 1.847
--- NOTE | 2024-01-27 14:51 | PC.NURSE ---
Report called to Georgette at [facility].
== END 2024-01-27 16:35 | disposition short-term general hospital (02) | DRG 303 ==
LOC: ER 09:33 → ICU 12:13 → MS 01-26 12:42
PROVIDERS: Family Medicine; Admitting Provider Internal Medicine; Emergency Provider Emergency Medicine; PCP Family Medicine; Visit Provider Internal Medicine
DX: I25.110 Atherosclerotic heart disease of native coronary artery with unstable angina pectoris (principal); I48.91 Unspecified atrial fibrillation; E03.9 Hypothyroidism, unspecified; G90.1 Familial dysautonomia [Riley-Day]; I95.1 Orthostatic hypotension; Z95.0 Presence of cardiac pacemaker; Z79.82 Long term (current) use of aspirin; Z79.890 Hormone replacement therapy; Z79.899 Other long term (current) drug therapy; Z88.0 Allergy status to penicillin; Z88.1 Allergy status to other antibiotic agents; Z87.891 Personal history of nicotine dependence; Z95.818 Presence of other cardiac implants and grafts; Z87.11 Personal history of peptic ulcer disease
CPT/HCPCS: 36415; 71045; 80048; 80053; 84443; 84484; 85025; 93005; 93308; 96365; 96366; 96376; 99285; J1160

== ENCOUNTER 2024-03-16 09:40 | Outpatient (OUT) | payer MEDICARE, OTHER, SELFPAY ==
[2024-03-16 15:45] LABS: C. Difficile PCR NEGATIVE
[2024-03-17 15:10] LABS: Cryptosporidium EIA Negative (Negative); Giardia lamblia Ag, EIA Negative (Negative)
[2024-03-18 17:11] LABS: Ova + Parasite Exam Final report (.)
== END 2024-03-16 09:41 | disposition home or self-care (01) ==
LOC: LAB 09:41
PROVIDERS: PCP Family Medicine
DX: K52.9 Noninfective gastroenteritis and colitis, unspecified (principal)
CPT/HCPCS: 87045; 87046; 87177; 87209; 87427; 87493

== ENCOUNTER 2024-06-26 07:18 | Outpatient (RCR) | payer MEDICARE, OTHER, SELFPAY ==
--- NOTE | 2024-05-07 14:27 | CR1_ITS ---
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
--- NOTE | 2024-05-12 14:15 | CR1_ITS ---
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
--- NOTE | 2024-06-04 07:38 | CR1_ITS ---
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
--- NOTE | 2024-07-02 11:34 | CR1_ITS ---
[facility] Test Date: 2024-07-02 Pat Name: YOLI ANTUNEZ Department: Room: - Gender: Male Care Director: : 1955 Requested By: Iram Shen Order Number: [id number] Reading MD: LARA OJEDA Interpretive Statements Session Date: Electronically Signed On 07-02-2024 22:37:32 EDT by LARA OJEDA
== END 2024-08-03 12:10 | disposition home or self-care (01) ==
LOC: CR 07:18
PROVIDERS: PCP Family Medicine; Visit Provider Nurse Practitioner Family
DX: I20.89 Other forms of angina pectoris (principal); Z98.61 Coronary angioplasty status
CPT/HCPCS: 93798

== ENCOUNTER 2024-09-01 07:02 | Outpatient (OUT) | payer MEDICARE, OTHER, SELFPAY ==
--- OUTSIDE RECORDS SUMMARY | 2024-09-01 07:09 | XMS_ITS | CCD ---
Author Organization [facility] Care Team Providers Care Framing Specialist Name Role Phone SHAKA CLAIR Unavailable Unavailable RADHA BURRIS Unavailable Unavailable Chris Luong Unavailable Unavailable Fatuma, Ritu Unavailable Unavailable Terrell Her Unavailable Unavailable Terrell Her Unavailable Unavailable Lara Escobar Unavailable Unavailable Warren Burrisssica Unavailable Unavailable RADHA PRICE Primary Care Un available MAYELIN WOLFF Referring Unavailable Radha Price Primary Care [facility] PROVIDER, UNKNOWN Attending Unavailable PROVIDER, UNKNOWN Admitting [...] Primary Care Unavailable JANET FORD Consulting Unavailable KOMMABAD, DARIELA Admitting Unavailable KOMIRA, DARIELA Attending Unavailable MINDY SEVERINO Referring Unavailable RADHA PRICE Primary Care Un available BHAVESH GUNTER Consulting Unavailable CANMARIO ARCE IV Consulting Unavaila DUSTY Casillas Consulting Unavailable GreenRadha Matias MD Primary Care Pr ovider Radha Burris MD Primary Care Provider Esther Grey DO Unavailable Radha Burris Primary Care Provider [phone] Tucker VAZQUEZ, Elian Caballero Unavailable Herminia Roland MD Unavailable [phone] MARKER, DR MARTIN Consulting Unavailable MARKER, DR MARTIN Attending Unavailable FATUMA, DR OCONNOR Primary Care Unavailable MARKER, DR MARTIN Admitting Unavailable AMOS RAMIREZ Consulting Unavailable FATUMA, DR OCONNOR Primary Care Unavailable CONCHA PHILLIPS Attending Unavailable MICHAEL, DR MAYELIN Lovell Consulting Unavailable CONCHA PHILLIPS Admitting Unavailable BLANCHE SEVERINO Consulting Unavailable DAVIE NARANJO Consulting Unavailable SAMANTHA, DR LEXI Zhang Attending Unavailsadaf BURRIS, DR OCONNOR Primary [...] Consulting Unavailable FLORENTIN PALMA Consulting Unavailable YANDEL HSEN Admitting Unavailable YANDEL SHEN Attending Unavailable Jasbir, DR Gutierrez Consulting Unavailable FATUMA, DR OCONNOR Primary Care Unavailable YANDEL SHEN Consulting Unavailable MOUKARBADELE, DR VILLAREAL Consulting Unavailable MOUKARBEL, DR VILLAREAL [...] Primary Care Unavailable Fatuma, Radha R Unavailable [phone] Unavailable Unavailable Fatuma, Dr. Radha Mena [...] Hedrick Attending Unavai kishale Fatuma, Dr. Radha Mena Primary Care [...] Unavail able Tucker VAZQUEZ, Elian Caballero Unavailable Luan VAZQUEZ, Herminia Schuler Unavailable [phone] Radha Burris MD Primary Care Provider YOSSI CHEN Attending Unavailable RADHA BURRIS Primary Care Unavailable RADHA BURRIS Primary Care Unavailable RADHA BURRIS Primary Care Unavailable Asaad, Imad Unavailable MD Radha Rapp Primary Care Pr ovider MD Estella Imallison Attending Provider [phone] Radha Burris MD Primary Care Provider Matilda [...] Care Unavailable RADHA BURRIS Primary Care Unavailable RADAH BURRIS Primary Care Unavailable SARBJIT RICHARDSON Referring Unavailable MARÍA PEARL Attending Unavailable Radha Burris MD Unavailable Radha Burris MD Primary Care Provider Radha Rapp Primary Care Un available Asaad, Imad Admitting Unavailable Asaad, Imad Attending Unavailable Radha Rapp Primary Care Un available Asaad, Imad Admitting Unavailable Asaad, Imad Attending Unavailable Kargabriel DO, Esther Unavailable YOSSI CHEN Referring Unavailable RADHA BURRIS Primary Care Unavailable Radha Burris Primary Care Provider Lin VAZQUEZ, Donn Unavailable Unavailable Donn Ceballos Attending Unavailable Radha Burris Referring Unavailable Radha Burris Primary Care Unavailable Lin VAZQUEZ, Donn Unavailable Unavailable Lin VAZQUEZ, Donn Unavailable Unavailable Radha Burris MD Unavailable Shashi Pina DO Unavailable ELEONORA LEO Attending Unavailab SHASHI Simpson Attending Unavailable AHMET, ELEONORA A Referring Unavailab le LATOYA REDDING Attending Unavailable AHMET, ELEONORA Levi Referring Unavailab SNEHAL MaynardD F Attending Unavailable SHASHI PINA Attending Unavailable FATUMA, RADHA Attending Unavailable AHMET, ELEONORA Levi Attending Unavailab le RADHA BURRIS Attending Unavailable SHIVANI ADAMS Attending Unavailable SOFIA VIGIL Attending Unavailab le FATUMA, RADHA Attending Unavailable RADHA BURRIS Referring Unavailable HUNTER, HANI Referring Unavailable HORANI, MIGUEL Admitting Unavailable HUNTER, SAMIRI Attending Unavailable [id number] Referring Unavailable HORANI, MIGUEL Admitting Unavailable HUNTER, SAMIRI Attending Unavailable HUNTER, HANI Referring Unavailable ELJEFF PENA Attending Unavailable MAME, SHUKRI Attending Unavailable LALITO JOSHI Referring Unavailable MAME, SHUKRI Referring Unavailable MAME, SHUKRI Referring Unavailable MAME, SHUKRI Referring Unavailable MAME, SHUKRI Referring Unavailable MAME, SHUKRI Referring Unavailable LALITO JOSHI Referring Unavailable YANDEL SHEN Attending Unavailable MAME, SHUKRI Attending Unavailable MAME, SHUKRI Attending Unavailable MAME, SHUKRI Attending Unavailable SHASHI PINA Referring Unavailable HUNTER, HANI Referring Unavailable HUNTER, HANI Referring Unavailable HUNTER, HANI Referring Unavailable MAME, SHUKRI Referring Unavailable ALGHOTHANI, MOHAMAD Referring Unavailable ALGHOTHANI, MOHAMAD Referring Unavailable HUNTER, HANI Referring Unavailable MARGO FELIZ Referring Unavailable LALITO JOSHI Attending Unavailable GILBERT BAXTER Referring Unavailable HUNTER, HANI Referring Unavailable SYD MCGREGOR Referring Unavailable HUNTER, HANI Referring Unavailable HUNTER, HANI Referring Unavailable MARGO FELIZ Referring Unavailable Allergies Allergy Classification Reported Allergen(s) Allergy Type Date of Onset Reaction(s) Facility (20 sources) Amoxicillin; Translations: [amoxicillin] Drug Allergy 01-31-20 Unknown [facility] (20 sources) Penicillins; Translations: [Penicillins] drug allergy 09-13-19 01 [facility] sources[facility] Penicillin; Translations: [PENICILLIN] Drug Allergy 06-22-19 Unknown [facility] (1 source) Penicillin Drug Allergy 11-05-19 [facility] Repository (20 sources) dofetilide; Translations: [Tikosyn CAPS] Drug Allergy 08-25-19 Other: See Comments, Unknown [facility] (20 sources) Penicillins Propensity to adverse reactions to drug 09-13-19 Unknown, Other [facility] Work Phone: (20 sources) Penicillins Drug Allergy 09-13-19 Unknown [facility] Work Phone: (1 source) dofetilide Drug Allergy 06-04-19 23 The [facility] Repository (1 source) Penicillins Drug allergy (disorder) 07-29-19 15 [facility] Repository (8 sources) Vancomycin; Translations: [VANCOMYCIN] Drug Allergy 03-07-20 22 Hives [facility] Repository (20 sources) Vancomycin; Translations: [Vancomycin HCl CAPS] Drug Allergy 03-07-20 22 Anaphylaxis, Itching, Rash [facility] (8 sources) Vancomycin HCl in Dextrose SOLN; Translations: [Vancomycin HCl in Dextrose SOLN] Allergy to drug (finding) -[facility] Work Phone: (7 sources) Vancomycin; Translations: [VANCOMYCIN HCL] Drug Allergy 01-31-20 Unknown [facility] Work Phone: (7 sources) Vancomycin Hcl In Water; Translations: [VANCOMYCIN HCL IN WATER] Propensity to adverse reactions 01-31-20 23 Unknown [facility] Work Phone: (20 sources) dofetilide Drug Allergy 08-25-19 22 Dizziness, Unknown [facility] (1 source) dofetilide Drug Allergy 04-12-20 [facility] Repository (1 source) Penicillins Drug allergy (disorder) 03-20-20 [facility] Repository (1 source) Vancomycin Drug Allergy 04-12-20 [facility] Repository Medications Current Medications Medication Drug Class(es) Dates Sig (Normalized) Sig (Original) Ascorbic Acid / POLYETHYLENE GLYCOL 3350 / Potassium Chloride / Sodium Ascorbate / Sodium Chloride / sodium sulfate (9 sources) Osmotic Laxative, Vitamin C Start: 02-17-2024 End: 06-09-2024 [id number]- Na Asc-C (Plenvu) 140 g reconstituted solution MLSDIRECTED Orally ASDIRECTED for 2 days 02/17/2024 06/09/2024 Discontinued (Therapy completed) Start: 02-17-2024 [id number]-[id number]-N aSulf-Na Asc-C (Plenvu) 140 g reconstituted solution MLSDIRECTED Orally ASDIRECTED for 2 days 02/17/2024 Active bisacodyl 5 mg delayed release oral tablet (9 sources) Stimulant Laxative Start: 02-17-2024 End: 06-09-2024 bisacodyl (Dulcolax) 5 MG EC tablet 1 (one) time each day at the same time 02/17/2024 06/09/2024 Discontinued (Therapy completed) budesonide 3 mg delayed release oral capsule (4 sources) Corticosteroid Start: 04-24-2023 Budesonide 3 M G 3 tabs daily for 60 days, 2 tabs daily for 14 days, 1 tab daily for 14 days Orally Once a day for 90 days Apr, Active calcitriol 0.30959 mg oral capsule (20 sources) Vitamin D3 Analog Start: 08-10-2024 End: 02-06-2025 take 1 capsule by mouth once daily calcitriol (Rocaltrol) 0.25 MCG capsule Indications: Hypocalcemia Take 1 capsule (0.25 mcg) by mouth Daily 90 capsule 1 08/10/2024 02/06/2025 Active Start: 01-15-2020 End: 05-04-2021 take 2 capsules [...] tablet Chew 1 tablet in the morning. Active take 1 tablet by mouth once james y calcium carbonate 500 mg calcium (1,250 mg) chewable tablet Take 1 tablet by mouth once daily. 0 Active Comment on above: Take 1 tablet by ana th once daily. cholestyramine resin 4000 mg powder for oral suspension (16 sources) Bile Acid Sequestrant Start: 02-18-2024 End: 06-09-2024 cholestyramine (Questran) 4 g packet MIX 1 PACKET WITH WATER OR NON-CARBONATED DRINK AND DRINK ONCE A DAY. 02/18/2024 06/09/2024 Discontinued (Therapy completed) Start: 03-20-2023 Cholestyramine 4 GM/DOSE 1 scoop Orally Once a day for 30 days Feb, Active Start: 03-20-2023 Cholestyramine 4 GM/DOSE 1 scoop Orally Once a day for 30 days Feb, Active clindamycin 300 mg oral capsule (5 sources) Lincosamide Antibacterial Start: 08-21-2024 End: 08-31-2024 take 1 capsule by mouth in the morning, then take 1 capsule by mouth in the evening, then take 1 capsule by mouth at bedtime clindamycin (Cleocin) 300 MG capsule Indications: Dental infection Take 1 capsule (300 mg) by mouth in the morning and 1 capsule (300 mg) in the evening and 1 capsule (300 mg) before bedtime. Do all this for 10 days. 30 capsule 08/21/2024 08/31/2024 Active Start: 01-27-2020 take 2 capsules by m outh twice daily clindamycin (CLEOCIN) 300 MG capsule [...] 1 tablet by ana th once daily. clotrimazole 10 mg/ml topical cream (7 sources) Azole Antifungal Start: 01-13-20 End: 02-06-20 clotrimazole (Lotrimin) 1 % cream Indications: Dermatitis Apply topically 2 (two) times a day 60 g 1 01/13/2024 02/06/2024 Discontinued (Therapy completed) dexamethasone (DECADRON) 40 mg in sodium chloride [...] capsule (20 sources) Provitamin D2 Compound Start: 08-11-19 End: 01-26-20 take 1 capsule by mouth every week ergocalciferol (Vitamin D-2) 1.25 MG (45262 UT) capsule Indications: Hypocalcemia Take 1 capsule (1.25 mg) by mouth 1 (one) time per week 12 capsule 1 08/10/2024 01/25/2025 Active Start: 10-08-2022 take 1 capsule by mo uth every week ergocalciferol (Vitamin D-2) 1.25 MG (46991 UT) capsule Take 1 capsule (1,250 mcg) by mouth 1 (one) time per week. 0 10/08/2022 Active Start: 01-10-2022 End: 12-24-2023 take 1 capsule by mouth every week Vitamin D (Ergocalciferol) 1.25 MG (98961 UT) Oral Capsule TAKE 1 CAPSULE BY [...] 01-02-2022 HYDROmorphone (DILAUDID) inj ection 0.25 mg 24 hr isosorbide mononitrate 30 mg extended release oral tablet (19 sources) Nitrate Vasodilator Start: 04-10-2024 End: 05-10-2024 take 1 tablet by mouth in the morning, then take 1 tablet by mouth every twenty-four hours isosorbide mononitrate ER (Imdur) 30 MG 24 hr tablet Take 30 mg by mouth in the morning. 04/10/2024 05/10/2024 Active Start: 07-01-2020 End: 04-12-2023 take 60 mg by mouth once daily Isosorbide Mononitrate Discontinued 60 MG PO Daily July 01, 2020 12:00am April 12, 2023 12:19pm Start: 12-02-2019 isosorbide mon onitrate (IMDUR) 30 MG CR tablet Isosorbide [place] itrate Not-Taking/PRN Isosorbide [place] itrate Not-Taking levothyroxine sodium 0.15 mg oral tablet (20 sources) l-Thyroxine Start: 06-11-2024 take 1 tablet by mouth four times weekly levothyroxine (Synthroid) 150 MCG tablet Indications: Acquired hypothyroidism (CMS/HCC) Take 1 tablet (150 mcg) by mouth 4 (four) times a week Take on an empty stomach 48 tablet 06/11/2024 Active Start: 06-11-2024 take 1 tablet by ana th four times weekly levothyroxine (Synthroid) 150 MCG tablet Indications: Acquired hypothyroidism (CMS/HCC) Take 1 tablet (150 mcg) by mouth 4 (four) times a week Take on an empty stomach 48 tablet 06/11/2024 Active Start: 06-10-2024 take 1 tablet by ana th three times weekly levothyroxine (Synthroid) 175 MCG tablet Indications: Acquired hypothyroidism (CMS/HCC) Take 1 tablet (175 mcg) by mouth 3 (three) times a week Take on an empty stomach 36 tablet 06/10/2024 Active Start: 11-04-2023 End: 06-10-2024 take 1 tablet by mouth before mealtime levothyroxine (Synthroid) 150 MCG tablet Indications: Acquired hypothyroidism (CMS/HCC) Take 1 tablet (150 mcg) by mouth in the morning. Take before meals. 90 tablet 05/19/2024 06/10/2024 Discontinued (Reorder) Start: 04-23-2023 take 1 tablet by ana th before mealtime levothyroxine (Synthroid) 200 MCG tablet [...] (3 sources) Angiotensin Converting Enzyme Inhibitor Start: 01-15-2020 take 1 tablet by mouth once daily lisinopril (ZESTRIL) 5 MG tablet TAKE 1 TABLET BY MOUTH DAILY. 90 Tablet 3 01/15/2020 Active magnesium citrate 58.2 mg/ml oral solution (12 sources) take 296 mL by mouth once daily magnesium citrate solution Take 296 mL by mouth Daily Active magnesium sulfate 4 g, lidocaine (cardiac) (XYLOCAINE) 100 mg in sodium chloride 0.9 % 250 mL IVPB (1 source) Start: 03-11-2020 magnesium sulfate 4 g, lidocaine (cardiac) (XYLOCAINE) 100 mg in sodium chloride 0.9 % 250 mL IVPB metoprolol tartrate 25 mg oral tablet (20 sources) beta-Adrenergic González Start: 07-24-2023 metoprolol tartrate (Lopressor) 25 MG tablet Take 12.5 mg by mouth in the morning and 12.5 mg before bedtime. Per cardio Dr Vilchis. 07/24/2023 Active Start: 02-01-2021 End: 05-04-2021 take 0.5 tablet [...] mouth. 0 Active Metoprolol Tartr ate Not-Taking midodrine hydrochloride 5 mg oral tablet (20 sources) alpha-Adrenergic Agonist Start: 03-11-2024 End: 07-09-2024 midodrine (Proamatine) 5 MG tablet Take 5 mg by mouth in the morning and 5 mg at noon and 5 mg in the evening. 03/11/2024 07/09/2024 Active mometasone furoate 0.001 mg/mg topical ointment (15 sources) Corticosteroid Start: 02-06-2024 End: 02-05-2025 mometasone (Elocon) 0.1 % ointment Indications: Dermatitis Apply topically Daily 45 g 02/06/2024 06/09/2024 Discontinued (Therapy completed) nitrofurantoin, macrocrystals 25 mg / nitrofurantoin, monohydrate 75 mg oral capsule (3 sources) Nitrofuran Antibacterial Start: 01-22-2020 nitro furantoin monohydrate macrocrystal (MACROBID) 100 MG capsule nitroglycerin 0.4 mg sublingual tablet (20 sources) Nitrate Vasodilator Start: 07-06-2024 nitroglyce rin (Nitrostat) 0.4 MG SL tablet Indications: Atypical angina (CMS/HCC) DISSOLVE ONE TABLET UNDER THE TONGUE EVERY 5 MINUTES NEEDED FOR CHEST PAIN. 75 tablet 07/06/2024 Active Start: 02-06-2024 End: 02-06-2024 nitroglycerin (Nitrostat) 0. 4 MG SL tablet Indications: Atypical angina (CMS/HCC) Place 1 tablet (0.4 mg) under the tongue every 5 (five) minutes if needed for chest pain 90 tablet 02/06/2024 Active nitroglycerin (N itrostat) 0.[address] 0.4 mg under the tongue. Active Comment on above: Dissolve 0.4 mg unde r the tongue every 5 minutes as needed. nystatin 100 unt/mg topical powder (3 sources) Polyene Antifungal Start: 01-27-2020 nystatin (MYCOSTATIN) 100,000 unit/g powder Apply topically 3 times daily. 45 g 1 01/27/2020 Active omeprazole 20 mg delayed release oral capsule (20 sources) Proton Pump Inhibitor Start: 07-17-2022 End: 12-31-2022 take 1 capsule by mouth once daily at dinner omeprazole (PriLOSEC) [address] capsule Take 1 capsule (20 mg) by mouth once daily. Take 30 minutes prior to dinner 0 10/09/2022 Active Start: 07-17-2022 take 1 capsule by mo ut at dinner Omeprazole 20 MG Oral Capsule [...] 01-01-20 ondansetron (ZOFRAN-ODT) disintegrating tablet 4 mg permethrin 50 mg/ml topical cream (10 sources) Pyrethroid Start: 02-10-20 End: 06-09-19 permethrin (Elimite) 5 % cream Indications: Dermatitis apply to skin from hairline to toes and wash off 8-10 hours later 60 g 02/10/2024 06/09/2024 Discontinued (Therapy completed) polyethylene glycol 3350 858716 mg / potassium chloride 2970 mg / sodium bicarbonate 6740 mg / sodium chloride 5860 mg / sodium sulfate 80030 mg powder for oral solution (7 sources) Osmotic Laxative Start: 03-20-20 take 4000 mL by mouth once Golytely 236 GM 4,000 ML Orally once for 1 Feb, Active pramipexole dihydrochloride 1 mg oral tablet (20 sources) Nonergot Dopamine Agonist Start: 04-23-19 End: 04-23-19 26 take 1 tablet by mouth at bedtime pramipexole (Mirapex) 1 MG tablet Indications: Restless leg Take 1 tablet (1 mg) by mouth at bedtime 90 tablet 3 04/23/2024 04/23/2025 Active Start: 01-15-2020 take 2 tablets by mo uth at bedtime pramipexole (MIRAPEX) 1 MG tablet [...] mg by mouth d aily at bedtime. predniSONE 10 mg oral tablet (5 sources) Start: 01-20-2024 End: 01-25-2024 take 1 tablet by mouth in the morning predniSONE (Deltasone) 10 MG tablet Indications: Irritant contact dermatitis due to other agents Take 1 tablet (10 mg) by mouth in the morning and 1 tablet (10 mg) before bedtime. Do all this for 5 days. 10 tablet 01/20/2024 01/25/2024 Active Start: 07-14-2022 predniSONE 20 MG Oral Tablet Quantity: 18 Refills: 0 Ordered: 14-Jul-2022 DO Start : 14-Jul-2022 Active pyridostigmine bromide 60 mg oral tablet (19 sources) Start: 08-07-2022 End: 09-25-2022 take 1 tablet by mouth three times [...] oral tablet (2 sources) Rifamycin Antibacterial Start: 06-07-2023 End: 06-10-2023 take 1 tablet by mouth three times daily Rifaximin (Xifaxan) 550 mg tablet Active 550 MG PO Three times daily 42 June 10, 2023 2:45pm sotalol hydrochloride 120 mg oral tablet (20 sources) Antiarrhythmic Start: 02-26-2024 sotalol (Betapace) 120 MG tablet 02/26/2024 Active Start: 01-30-2024 End: 02-29-2024 take 1 tablet by mouth in the morning sotalol (Betapace) 80 MG tablet Take 80 mg by mouth in the morning and 80 mg in the evening. 01/30/2024 02/29/2024 Active sucralfate 1000 mg oral tablet (20 sources) Aluminum Complex Start: 01-15-2020 take 1 tablet by mouth four times [...] Care Provider) topiramate 25 mg oral tablet (12 sources) Start: 04-12-2023 topiramate (To pamax) 25 MG tablet Take 12.5 mg by mouth in the morning and 12.5 mg before bedtime. 04/12/2023 Active Start: 04-06-2023 take 25 mg by mouth [...] mg by mout h three times daily. Completed/Discontinued Medications Medication Drug Class(es) Dates Sig [...] Comment on above: Take 1 capsule by [facility] once daily. apixaban 5 mg oral tablet [...] Start: 11-06-2019 take 2 tablets by mo [facility] once daily benazepril (Lotensin) 5 mg tablet Take 2 tablets (10 mg) by mouth once daily. Replacing amlodipine/benazepril 0 11/06/2019 Active Comment on above: Take 1 tablet by ana once daily. betamethasone 3 mg/ml / betamethasone [...] Take 40 mg by mouth once daily. FLUoxetine 20 mg oral capsule (20 sources) Serotonin Reuptake Inhibitor Start: 02-06-2024 End: 08-21-2024 take 1 capsule by mouth once daily FLUoxetine (PROzac) 20 MG capsule Indications: Anxiety Take 1 capsule (20 mg) by mouth Daily 30 capsule 02/06/2024 08/21/2024 Discontinued gabapentin 300 mg oral capsule (20 sources) [...] (OMNIPaque) 350 mg iodine/mL injection 75 mL ketorolac tromethamine 10 mg oral tablet (6 [...] 12-28-2015 Depo-Medrol 40 mg Dec, 1 mL metroNIDAZOLE 500 mg oral tablet (9 sources) [...] release (DR/EC) Discontinued 40 MG PO Daily 1 June 06, 2023 12:00am June 06, 2023 2:03pm prednisoLONE acetate 10 mg/ml ophthalmic suspension (3 sources) Corticosteroid Start: 02-07-2022 prednisoLONE Acetate 1 % Ophthalmic Suspension Quantity: 5 Refills: 0 Ordered: 07-Feb-2022 DO Start : 07-Feb-2022 Active 12 hr ranolazine 500 mg extended [...] : 21-Mar-2022 Active take 1 capsule by [facility] every twenty-four hours tamsulosin (Flomax) 0.4 mg 24 hr capsule Take by mouth. 0 Active tiZANidine 4 mg oral tablet (12 sources) Central alpha-2 Adrenergic Agonist Start: 11-13-2012 End: 04-12-2023 take 4 mg by mouth at bedtime Tizanidine Discontinued 4 MG PO Bedtime May 02, 2018 12:00am April 12, 2023 12:19pm triamcinolone acetonide 1 mg/ml topical cream (3 sources) Corticosteroid Start: 12-07-2023 End: 12-24-2023 triamcinolone (Kenalog) 0.1 % cream Indications: Poison margarita dermatitis Apply topically 2 (two) times a day as needed (pain and swelling) 30 g 2 12/07/2023 12/24/2023 Discontinued (Therapy completed) ubrogepant 100 mg oral tablet (1 source) [...] No more than 200 mg per day. vitamin b12 1 mg oral tablet (5 sources) Vitamin B12 End: 12-24-2023 take 1.25 ug by mouth every week cyanocobalamin (Vitamin B-12) 1000 MCG tablet Take 1.25 mcg by mouth once a week 06/13/23 Pt not taking 12/24/2023 Discontinued (Therapy completed) Problems Active Problems Problem Classification Problem Date Documented Date Episodic/Chronic Allergic reactions (13 sources) Allergy status to penicillin; Translations: [Allergy status to other antibiotic agents status] Onset: 3 09-07-2022 Episodic Anxiety disorders (20 sources) Anxiety; Translations: [Anxiety disorder, unspecified] Onset: 3 10-01-2022 Chronic Aortic; peripheral; and visceral artery aneurysms (20 sources) Ectasia of thoracic aorta; Translations: [Thoracic aortic ectasia] Onset: 4 01-13-2024 Chronic Cardiac dysrhythmias (20 sources) Paroxysmal atrial fibrillation; Translations: [Paroxysmal atrial fibrillation] Onset: 0 Chronic Cataract (20 sources) Nuclear sclerotic cataract; Translations: [Age-related nuclear cataract, left eye] Onset: 8 01-06-2020 Chronic Chronic kidney disease (20 sources) Chronic kidney disease stage 3; Translations: [Chronic kidney disease, stage 3 (moderate)] Onset: 0 Resolved: 5 Chronic Chronic kidney disease (3 sources) Chronic kidney disease; Translations: [Chronic kidney disease, stage 3 unspecified] Onset: 3 Chronic obstructive pulmonary disease and bronchiectasis (2 sources) Bronchiectasis; Translations: [Bronchiectasis, uncomplicated] 06-09-2024 Chronic Complications of surgical procedures or medical care (20 sources) Hypoparathyroidism following procedure; 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] Onset: 3 10-13-2018 Chronic Conditions associated with dizziness or vertigo (20 sources) Meniere's disease; Translations: [Meniere's disease, unspecified ear] Onset: 1 10-01-2022 Chronic Conduction disorders (2 sources) Encounter for adjustment and management of other part of cardiac pacemaker; Translations: [Encounter for adjustment and management of other part of cardiac pacemaker] Onset: 5 Chronic Congestive heart failure; nonhypertensive (2 sources) Chronic combined systolic and diastolic heart failure; Translations: [Chronic combined systolic (congestive) and diastolic (congestive) heart failure] 06-09-2024 Chronic Coronary atherosclerosis and other heart disease (20 sources) Atypical angina; 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 forms of angina pectoris] Onset: 1 12-14-2020 Chronic Digestive congenital anomalies (1 source) Esophageal web; 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] Onset: 3 Chronic Disorders of lipid metabolism (20 sources) Hyperlipidemia; Translations: [Hyperlipidemia, unspecified] Onset: 0 10-01-2022 Chronic Disorders of teeth and jaw (4 sources) Infection of tooth; Translations: [Periapical abscess without sinus] 08-22-2024 Episodic Diverticulosis and diverticulitis (20 sources) Diverticulosis of small intestine; Translations: [Diverticulosis of small intestine without perforation or abscess without bleeding] Onset: 1 10-01-2022 Chronic Esophageal disorders (20 sources) Gastroesophageal reflux disease; Translations: [Gastro-esophageal reflux disease without esophagitis] Onset: 0 12-14-2020 Chronic Essential hypertension (20 sources) Essential (primary) hypertension; Translations: [Malignant hypertension] Onset: 6 Resolved: 5 01-06-2020 Chronic Essential hypertension (2 sources) Essential hypertension Onset: 9 Gastroduodenal ulcer (except hemorrhage) (13 sources) Gastric ulcer without hemorrhage, without perforation AND without obstruction; Translations: [Gastric ulcer, unspecified as acute or chronic, without hemorrhage or perforation] Chronic Gastrointestinal hemorrhage (4 sources) Upper gastrointestinal bleeding; Translations: [Gastrointestinal hemorrhage, unspecified] 07-01-2020 Episodic Genitourinary symptoms and ill-defined conditions (20 sources) Post-micturition incontinence ; Translations: [Post-void dribbling] Onset: 3 10-01-2022 Chronic Gout and other crystal arthropathies (20 sources) Chronic gouty arthritis; Translations: [Idiopathic chronic gout, multiple sites, without tophus (tophi)] Onset: 6 10-01-2022 Chronic Headache; including migraine (20 sources) Migraine without aura, not refractory ; Translations: [Migraine without aura, not intractable, without status migrainosus] Onset: 8 01-06-2020 Chronic Hyperplasia of prostate (20 sources) Benign prostatic hypertrophy with outflow obstruction; Translations: [Benign prostatic hyperplasia with lower urinary tract symptoms] Onset: 3 10-01-2022 Chronic Hypertension with complications and secondary hypertension (19 sources) Hypertensive renal disease; Translations: [Hypertensive chronic kidney disease with stage 1 through stage 4 chronic kidney disease, or unspecified chronic kidney disease] Onset: 3 09-07-2022 Chronic Immunity disorders (1 source) [place] light chain disease; 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, not elsewhere classified] 05-31-2023 Chronic Malaise and fatigue (4 sources) Asthenia; Translations: [Weakness] 06-22-2024 Episodic Menopausal disorders (1 source) Hormone replacement therapy; Translations: [HORMONE REPLACEMENT THERAPY] Onset: 3 Episodic Miscellaneous mental health disorders (1 source) Other somatoform disorders; Translations: [OTHER SOMATOFORM DISORDERS] Onset: 3 Chronic Nutritional deficiencies (20 sources) Vitamin D deficiency; Translations: [Vitamin D deficiency, unspecified] Onset: 7 10-01-2022 Chronic Osteoarthritis (20 sources) Osteoarthritis of elbow; Translations: [Primary osteoarthritis, right elbow] Onset: 6 10-01-2022 Chronic Other aftercare (1 source) Other long-term (current) drug therapy; Translations: [OTH CASHIER ASSISTANT CURRENT DRUG THERAPY] Onset: 3 Episodic Other aftercare (1 source) USP (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 of anticoagulants; Translations: [RESIDENTIAL CURRNT USE ANTICOAGULANTS] Onset: 3 Episodic Other aftercare (4 sources) USP (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 of aspirin; Translations: [CASHIER ASSISTANT CURRENT USE OF ASPIRIN] Onset: 3 Episodic Other aftercare (1 source) Patient encounter status; Translations: [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 servicer (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 of antithrombotics/antiplat elets] 09-07-2022 Episodic Other aftercare (2 sources) Long-term current use of aspirin; Translations: [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 servicer (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 of aspirin] 09-07-2022 Episodic Other and ill-defined heart disease (20 sources) Left ventricular hypertrophy; Translations: [Cardiomegaly] Onset: 9 10-01-2022 Chronic Other and unspecified benign neoplasm (1 source) Benign neoplasm of lymph nodes; Translations: [Benign neoplasm of lymph nodes] Onset: 3 Episodic Other and unspecified benign neoplasm (1 source) Mass of digestive structure; Translations: [Polyp of stomach and duodenum] 09-07-2022 Episodic Other circulatory disease (20 sources) Presence of other cardiac implants and [...] Onset: 3 Chronic Other connective tissue disease (20 sources) Artificial knee joint present; Translations: [Presence of artificial knee joint, bilateral] Onset: 8 10-17-2022 Chronic Other connective tissue disease (20 sources) History of total knee arthroplasty; Translations: [Presence of right artificial knee joint] Onset: 3 10-01-2022 Chronic Other connective tissue disease (7 sources) Arthrodesis status; Translations: [Arthrodesis status] Onset: [...] and duodenum] 09-07-2022 Episodic Other endocrine disorders (20 sources) Hypoparathyroidism; Translations: [Hypoparathyroidism, unspecified] Onset: 9 10-01-2022 Chronic Other eye disorders (1 source) Ptosis of eyelid; Translations: [Unspecified ptosis of bilateral eyelids] 05-19-2024 Episodic Other eye disorders (6 sources) Acquired ptosis of eyelid of right eye; Translations: [Unspecified ptosis of right eyelid] 06-09-2024 Episodic Other gastrointestinal disorders (20 sources) Oropharyngeal dysphagia; Translations: [Dysphagia, oropharyngeal phase] Onset: 3 Episodic Other gastrointestinal disorders (13 sources) Swallowing problem; Translations: [Dysphagia, unspecified] Episodic Other gastrointestinal disorders (13 sources) Abnormal deglutition; Translations: [Dysphagia, unspecified] Episodic Other gastrointestinal disorders (6 sources) H/O: abdominal hernia; Translations: [Personal history of other diseases of digestive system] Resolved: 3 Episodic Other gastrointestinal disorders (1 source) Other dysphagia; 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 dysphagia] Onset: 3 Episodic Other gastrointestinal disorders (9 sources) Diarrhea, unspecified; Translations: [Diarrhea, unspecified] Onset: 3 Episodic Other hereditary and degenerative nervous system conditions (20 sources) Restless legs; Translations: [Restless legs syndrome] Onset: 7 Resolved: 5 12-14-2020 Chronic Other nervous system disorders (12 sources) Chronic pain; 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 chronic pain] Chronic Other nervous system disorders (20 sources) Disorder of autonomic nervous system; Translations: [Disorder of the autonomic nervous system, unspecified] Onset: 8 12-31-2022 Chronic Other nervous system disorders (4 sources) Other chronic pain; Translations: [Chronic pain] Onset: 2 Resolved: 2 Chronic Other nervous system disorders (20 sources) Aphasia; Translations: [Aphasia] Onset: 3 Chronic Other nervous system disorders (1 source) Aphasia; Translations: [APHASIA] Onset: 3 Chronic Other nervous system disorders (3 sources) Disorder of the autonomic nervous system, unspecified; Translations: [Autonomic dysfunction] Onset: 3 Chronic Other nervous system disorders (20 sources) Expressive dysphasia; Translations: [Aphasia] Onset: 0 10-01-2022 Chronic Other nervous system disorders (20 sources) Disorder of muscle; Translations: [Myopathy, unspecified] Onset: 1 10-01-2022 Chronic Other nervous system disorders (4 sources) Cranial nerve disorder; Translations: [Polyneuropathy, unspecified] 06-22-2024 Chronic Other nervous system disorders (2 sources) Polyneuropathy, unspecified; Translations: [Polyneuropathy, unspecified] Onset: 5 Chronic Other nervous system disorders (2 sources) Cranial nerve disorder 06-22-2024 Episodic Other nutritional; endocrine; and metabolic disorders (20 sources) Hypocalcemia; Translations: [Hypocalcemia] Onset: 9 10-13-2018 Chronic Other nutritional; endocrine; and metabolic disorders (4 sources) Hypocalcemia; Translations: [HYPOCALCEMIA] Onset: 2 Chronic Other nutritional; endocrine; and metabolic disorders (20 sources) Hypomagnesemia; Translations: [Hypomagnesemia] Onset: 1 10-01-2022 Chronic Other upper respiratory disease (20 sources) Vocal cord paralysis; Translations: [Paralysis of [...] bilateral] 10-17-2022 Chronic Other upper respiratory disease (20 sources) Disorder of vocal cord; 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 diseases of vocal cords] Onset: 3 01-30-2023 Episodic Peripheral and visceral atherosclerosis (2 sources) Atherosclerosis of aorta; Translations: [Atherosclerosis of aorta] 01-13-2024 Chronic Residual codes; unclassified (20 sources) Obstructive sleep apnea syndrome; Translations: [Obstructive sleep apnea (adult) (pediatric)] Onset: 0 Resolved: 5 12-14-2020 Chronic Residual codes; unclassified (5 sources) [...] of mental health and substance abuse codes (2 sources) Tobacco use and exposure - finding 06-09-2024 Chronic Screening and history of mental health and substance abuse codes (8 sources) Personal history of nicotine dependence; Translations: [Personal history of tobacco use] Onset: 3 09-07-2022 Episodic Spondylosis; intervertebral disc disorders; other back problems (20 sources) Cervical spondylosis; Translations: [Spondylosis without myelopathy [...] Other Problems Problem Classification Problem Date Documented Date Episodic/Chronic Abdominal hernia (20 sources) Hiatal hernia; Translations: [Diaphragmatic hernia without mention of obstruction or gangrene] Onset: 3 Episodic Abdominal pain (16 sources) Unspecified abdominal pain; Translations: [Left lower quadrant pain] Onset: 2 Episodic Acute and unspecified renal failure (20 sources) Injury of kidney; Translations: [Acute kidney failure, unspecified] Onset: 6 Episodic Acute posthemorrhagic anemia (20 sources) Acute posthemorrhagic anemia; Translations: [Acute posthemorrhagic anemia] Onset: 4 07-01-2020 Episodic Biliary tract disease (20 sources) Gallstone; Translations: [Calculus of gallbladder without cholecystitis without obstruction] Onset: 2 05-31-2022 Episodic Calculus of urinary tract (20 sources) Calcium renal calculus ; Translations: [History of calculus of kidney] Onset: 2 Episodic Cardiac dysrhythmias (2 sources) Palpitations; Translations: [Palpitations] Onset: 4 Episodic Complications of surgical procedures or medical care (20 sources) Postoperative seroma; Translations: [Postprocedural seroma of a circulatory system organ or structure following other procedure] Onset: 3 10-01-2022 Episodic Conditions associated with dizziness or vertigo (3 sources) Dizziness and giddiness; Translations: [Dizzy spells] Onset: 2 12-31-2022 Episodic Diabetes mellitus without complication (20 sources) Hyperglycemia; Translations: [Hyperglycemia, unspecified] Onset: 2 Episodic E Codes: Natural/environment (1 source) Other contact with dog, initial encounter; Translations: [OTHER CONTACT WITH DOG INITIAL ENC] Onset: 2 Episodic Fluid and electrolyte disorders (20 sources) Dehydration; Translations: [Dehydration] Onset: 6 Episodic Gastroduodenal ulcer (except hemorrhage) (20 sources) Acute gastric ulcer; Translations: [Acute gastric ulcer without hemorrhage or perforation] Onset: 6 Episodic Genitourinary symptoms and ill-defined conditions (20 sources) History of acute renal failure; Translations: [Personal history of other diseases of urinary system] Onset: 6 10-01-2022 Episodic Headache; including migraine (20 sources) Headache disorder; 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 headache syndrome] Onset: 6 10-01-2022 Episodic Mood disorders (18 sources) Mood disorders Onset: 5 06-09-2024 Nausea and vomiting (20 sources) Nausea and vomiting; Translations: [Nausea with vomiting, unspecified] Onset: 2 Episodic Nonspecific chest pain (20 sources) Chest pain; Translations: [Chest pain, unspecified] Onset: 1 01-06-2020 Episodic Nutritional deficiencies (20 sources) Vitamin B12 deficiency (non anemic); Translations: [Deficiency of other specified B group vitamins] Onset: 1 10-01-2022 Episodic Other aftercare (1 source) 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 servicer (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 of antithrombotics/antipla telets; Translations: [USP (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 of antithrombotics/antipla telets] Onset: 3 Episodic Other and unspecified benign neoplasm (1 source) Polyp of stomach and duodenum; Translations: [Polyp of stomach and duodenum] Onset: 3 Episodic Other circulatory disease (20 sources) History of transient ischemic attack; Translations: [Personal history of transient ischemic attack (TIA), and cerebral infarction without residual deficits] Onset: 2 Episodic Other circulatory disease (2 sources) Orthostatic hypotension; Translations: [Orthostatic hypotension] Onset: 5 05-31-2023 Episodic Other circulatory disease (1 source) Orthostatic hypotension; Translations: [Orthostatic hypotension] Onset: 5 Episodic Other connective tissue disease (3 sources) Pain in left foot; Translations: [PAIN IN LEFT FOOT] Onset: 2 Episodic Other connective tissue disease (5 sources) Pain in right leg; Translations: [PAIN IN RIGHT LEG] Onset: 2 Episodic Other connective tissue disease (1 source) Pain in left leg; Translations: [PAIN IN LEFT LEG] Onset: 2 Episodic Other connective tissue disease (20 sources) Recurrent falls ; Translations: [Repeated falls] Onset: 2 10-01-2022 Episodic Other connective tissue disease (6 sources) Pain in right arm Onset: 3 Episodic Other diseases of kidney and ureters (20 sources) Hydronephrosis; Translations: [Unspecified hydronephrosis] Onset: 3 10-01-2022 Episodic Other disorders of stomach and duodenum (1 source) Other diseases of stomach and duodenum; 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 diseases of stomach and duodenum] Onset: 3 Episodic Other gastrointestinal disorders (20 sources) Dysphagia; Translations: [Dysphagia, pharyngoesophageal phase] Onset: 9 09-07-2022 Episodic Other gastrointestinal disorders (20 sources) Difficulty swallowing solids; Translations: [Dysphagia, unspecified] Onset: 9 10-01-2022 Episodic Other gastrointestinal disorders (2 sources) Other specified diseases of intestine; Translations: [OTHER SPECIFIED DISEASES INTESTINE] Onset: 2 Episodic Other gastrointestinal disorders (6 sources) Dysphagia, oropharyngeal phase; Translations: [Dysphagia, oropharyngeal phase] Onset: 3 Episodic Other gastrointestinal disorders (3 sources) Dysphagia, unspecified; Translations: [Dysphagia, unspecified] Onset: 3 Episodic Other gastrointestinal disorders (9 sources) Diarrhea; Translations: [Diarrhea, unspecified] 01-31-2023 Episodic Other injuries and conditions due to external causes (20 sources) Muscle strain; Translations: [Unspecified site of sprain and strain] Onset: 3 01-30-2023 Episodic Other injuries and conditions due to external causes (20 sources) Injury of head; Translations: [Unspecified injury of head, initial encounter] Onset: 3 10-29-2022 Episodic Other liver diseases (20 sources) Jaundice; Translations: [Unspecified jaundice] Onset: 2 Episodic Other lower respiratory disease (20 sources) Dyspnea; Translations: [Shortness of breath] Onset: 9 10-01-2022 Episodic Other lower respiratory disease (20 sources) Apnea; Translations: [Apnea, not elsewhere classified] Onset: 2 Episodic Other lower respiratory disease (2 sources) Other forms of dyspnea; 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 forms of dyspnea] Onset: 5 Episodic Other nervous system disorders (20 sources) Paresthesia of lower extremity; Translations: [Paresthesia of skin] Onset: 3 10-01-2022 Episodic Other nervous system disorders (20 sources) Skin sensation disturbance; Translations: [Unspecified disturbances of skin sensation] Onset: 0 02-25-2023 Episodic Other non-traumatic joint disorders (20 sources) Pain in elbow; Translations: [Pain in right elbow] Onset: 3 10-01-2022 Episodic Other non-traumatic joint disorders (9 sources) Pain in left shoulder Onset: 2 Resolved: 2 Episodic Other non-traumatic joint disorders (20 sources) Arthralgia of the upper arm; Translations: [Pain in unspecified elbow] Onset: 6 10-01-2022 Episodic Other non-traumatic joint disorders (10 sources) Pain in upper arm; Translations: [Pain in unspecified elbow] Onset: 6 10-01-2022 Episodic Other nutritional; endocrine; and metabolic disorders (20 sources) H/O: endocrine disorder; Translations: [Personal history of other endocrine, nutritional and metabolic disease] Onset: 9 10-29-2022 Episodic Other screening for suspected conditions (not mental disorders or infectious disease) (20 sources) Electrocardiogram abnormal; Translations: [Abnormal electrocardiogram [ECG] [EKG]] Onset: 4 Resolved: 5 06-09-2024 Episodic Other upper respiratory disease (20 sources) Hoarse; Translations: [Dysphonia] Onset: 9 10-01-2022 Episodic Other upper respiratory disease (1 source) Other diseases of vocal cords; 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 diseases of vocal cords] Onset: 3 Episodic Pancreatic disorders (not diabetes) (20 sources) Acute pancreatitis without necrosis or infection, unspecified; Translations: [Biliary acute pancreatitis without necrosis or infection] Onset: 2 Episodic Residual codes; unclassified (20 sources) History of anesthesia problem; Translations: [Personal history of other specified conditions] Onset: 3 10-01-2022 Episodic Residual codes; unclassified (20 sources) History of radiofrequency ablation operation for arrhythmia; 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 specified postprocedural states] Onset: 3 01-31-2023 Episodic Residual codes; unclassified (10 sources) History of total thyroidectomy; 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 specified postprocedural states] Onset: 3 10-01-2022 Episodic Retinal detachments; defects; vascular occlusion; and retinopathy (20 sources) Detachment of retina of right eye; Translations: [Serous retinal detachment, right eye] Onset: 8 01-06-2020 Episodic Septicemia (except in labor) (1 source) Sepsis, unspecified organism; Translations: [SEPSIS UNSPECIFIED ORGANISM] Onset: 2 Episodic Spondylosis; intervertebral disc disorders; other back problems (20 sources) Low back pain; Translations: [Low back pain] Onset: 0 10-01-2022 Episodic Superficial injury; contusion (1 source) Contusion of left lesser toe(s) without damage to nail, initial encounter; Translations: [CONTUS LT LESR TOES W/O DMG NL INIT] Onset: 2 Episodic Syncope (19 sources) Syncope and collapse; Translations: [Syncope and collapse] Onset: 4 06-09-2024 Episodic Thyroid disorders (20 sources) Disorder of thyroid gland; Translations: [Disorder of thyroid, unspecified] Onset: 1 12-14-2020 Episodic Unclassified (1 source) Aneurysm of the ascending aorta, without rupture; Translations: [Aneurysm of the ascending aorta, without rupture] Onset: 5 Urinary tract infections (1 source) Urinary tract infection, site not specified; Translations: [UTI SITE NOT SPECIFIED] Onset: 2 Episodic NEGATED: Highlighted row has not occurred!Residual codes; unclassified (17 sources) Disease Episodic Results Test Name Value Interpretation Reference Range Facility CT Maxillofacial region WO a nd W contrast Candace 08-21-2024 TITLE OF EXAM: CT SI NUS WO IV CONTRAST REASON FOR EXAM: Right upper sinus infection/pain, post dental work TECHNIQUE: Axial CT of the face/sinuses COMPARISON: None. FINDINGS: Facial bones and soft tissues: No acute facial bone fracture. Moderate right temporomandibular joint osteoarthrosis. The soft tissues of the face are normal. Orbits: Bilateral aphakia/pseudophakia. Suggested evidence of prior left scleral buckle surgery. Otherwise normal, symmetric globes, extraocular muscles, and optic nerve sheath complexes. No intraconal or extraconal abnormality. Paranasal sinuses and mastoid air cells: Clear mastoid air cells. There is moderate filling of the right maxillary and frontal sinuses with spumescent secretions and moderate filling of right anterior ethmoid air cells. Mild mucous and/or soft tissue filling of left anterior ethmoid air cells and the left frontal sinus. One of the roots of an extracted right molar persists, extending through the floor of the right maxillary sinus. There are enlarged sockets of this extracted tooth which communicate with the maxillary sinus. No appreciable sinus wall thickening/osteitis or erosive changes to suggest chronic sinusitis. Lymph nodes: No lymphadenopathy. Salivary glands:Normal. Airway: Normal. Brain and intracranial structures (included portions): The included ventricles and extra-axial spaces are normal in size and configuration. Moderate to severe near concentric calcific arteriosclerosis of the cavernous internal carotid arteries. No appreciable mass lesion or hemorrhage. Skull/scalp (included portions): Normal. Soft tissues of the neck (included portions): Normal Cervical spine (included levels): Severe atlantodens osteoarthrosis. IMPRESSION: 1. Findings which would correlate with a clinical diagnosis of acute right sided sinusitis of the structures evacuated by the anterior drainage pathway. 2. One of the roots of an extracted right molar persists, extending through the floor of the right maxillary sinus. There are enlarged sockets of this extracted tooth which communicate with the maxillary sinus. DICTATED ON: 08/21/2024 1:31 PM This report has been electronically signed in approved by the interpreting radiologist. Shamika Weldon MD - 08/21/2024 TITLE OF EXAM: CT SINUS WO IV CONTRAST REASON FOR EXAM: Right upper sinus infection/pain, post dental work TECHNIQUE: Axial CT of the face/sinuses COMPARISON: None. FINDINGS: Facial bones and soft tissues: No acute facial bone fracture. Moderate right temporomandibular joint osteoarthrosis. The soft tissues of the face are normal. Orbits: Bilateral aphakia/pseudophakia. Suggested evidence of prior left scleral buckle surgery. Otherwise normal, symmetric globes, extraocular muscles, and optic nerve sheath complexes. No intraconal or extraconal abnormality. Paranasal sinuses and mastoid air cells: Clear mastoid air cells. There is moderate filling of the right maxillary and frontal sinuses with spumescent secretions and moderate filling of right anterior ethmoid air cells. Mild mucous and/or soft tissue filling of left anterior ethmoid air cells and the left frontal sinus. One of the roots of an extracted right molar persists, extending through the floor of the right maxillary sinus. There are enlarged sockets of this extracted tooth which communicate with the maxillary sinus. No appreciable sinus wall thickening/osteitis or erosive changes to suggest chronic sinusitis. Lymph nodes: No lymphadenopathy. Salivary glands:Normal. Airway: Normal. Brain and intracranial structures (included portions): The included ventricles and extra-axial spaces are normal in size and configuration. Moderate to severe near concentric calcific arteriosclerosis of the cavernous internal carotid arteries. No appreciable mass lesion or hemorrhage. Skull/scalp (included portions): Normal. Soft tissues of the neck (included portions): Normal Cervical spine (included levels): Severe atlantodens osteoarthrosis. IMPRESSION: 1. Findings which would correlate with a clinical diagnosis of acute right sided sinusitis of the structures evacuated by the anterior drainage pathway. 2. One of the roots of an extracted right molar persists, extending through the floor of the right maxillary sinus. There are enlarged sockets of this extracted tooth which communicate with the maxillary sinus. DICTATED ON: 08/21/2024 1:31 PM This report has been electronically signed in approved by the interpreting radiologist. [facility] Radiology Study observation (narrative) [facility] CT Maxillofacial region WO a nd W contrast IVOrdered By: Shamika Hung on 08-21-2024 [facility] Work Phone: CT SINUS WOon 08-21-2024 CT SINUS WO TITLE OF EXAM: CT SI NUS WO IV CONTRAST REASON FOR EXAM: Right upper sinus infection/pain, post dental work TECHNIQUE: Axial CT of the face/sinuses COMPARISON: None. FINDINGS: Facial bones and soft tissues: No acute facial bone fracture. Moderate right temporomandibular joint osteoarthrosis. The soft tissues of the face are normal. Orbits: Bilateral aphakia/pseudophakia. Suggested evidence of prior left scleral buckle surgery. Otherwise normal, symmetric globes, extraocular muscles, and optic nerve sheath complexes. No intraconal or extraconal abnormality. Paranasal sinuses and mastoid air cells: Clear mastoid air cells. There is moderate filling of the right maxillary and frontal sinuses with spumescent secretions and moderate filling of right anterior ethmoid air cells. Mild mucous and/or soft tissue filling of left anterior ethmoid air cells and the left frontal sinus. One of the roots of an extracted right molar persists, extending through the floor of the right maxillary sinus. There are enlarged sockets of this extracted tooth which communicate with the maxillary sinus. No appreciable sinus wall thickening/osteitis or erosive changes to suggest chronic sinusitis. Lymph nodes: No lymphadenopathy. Salivary glands:Normal. Airway: Normal. Brain and intracranial structures (included portions): The included ventricles and extra-axial spaces are normal in size and configuration. Moderate to severe near concentric calcific arteriosclerosis of the cavernous internal carotid arteries. No appreciable mass lesion or hemorrhage. Skull/scalp (included portions): Normal. Soft tissues of the neck (included portions): Normal Cervical spine (included levels): Severe atlantodens osteoarthrosis. IMPRESSION: 1. Findings which would correlate with a clinical diagnosis of acute right sided sinusitis of the structures evacuated by the anterior drainage pathway. 2. One of the roots of an extracted right molar persists, extending through the floor of the right maxillary sinus. There are enlarged sockets of this extracted tooth which communicate with the maxillary sinus. DICTATED ON: 08/21/2024 1:31 PM This report has been electronically signed in approved by the interpreting radiologist. 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 He is encouraged to re-enroll. Electronically Signed On 08-12-2024 10:34:15 EDT by Adrian Russell Dictated By: Adrian Russell D.O. 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 He is encouraged to re-enroll. Electronically Signed On 08-12-2024 10:34:15 EDT by Adrian Russell Dictated By: Adrian Russell D.O. Signed By: 08/12/24 1034 08/12/24 1034 DD/ 1216 TD/TT: Refrigeration Engine Operator: DEVIN Rubin ITPOrdered By: Radiologist R adiology on 08-12-2024 [facility] Work Phone: MAGNESIUMon 08-04-2024 Magnesium [Mass/Vol] 2.3 mg/dL Normal 1.5-2.5 [facility] Comment on above: Order Comment: COLLE CTION KIT GIVEN TO PATIENT. PATIENT ADVISED TO RETURN. URINE VOLUME: NOTV Performed By: #### 1 7306, 92529, 622, 66921 #### [facility] [address], [address] [place], [place] [id number] Content Creation Manager: Janes Vasquez MD PTH, INTACT WITHOUT CALCIUMo n 08-04-2024 PARATHYROID HORMONE, INTACT 9 pg/mL Low 16-77 [email or web address] Comment on above: Result Comment: Interpretive Guide Intact PTH Calcium ------- Normal Parathyroid Normal Normal Hypoparathyroidism Low or Low Normal Low Hyperparathyroidism Primary Normal or High High Secondary High Normal or Low Tertiary High High Non-Parathyroid Hypercalcemia Low or Low Normal High Performed By: #### 1 7306, 65483, 622, 31032 #### [facility] [address], [address] [place], [place] [id number] Content Creation Manager: aJnes Vasquez MD RENAL FUNCTION PANELon 08-04 Albumin [Mass/Vol] 4.5 g/dL Normal 3.6-5.1 [facility] Comment on above: Performed By: #### 1 7306, 85743, 622, 33273 #### [facility] [place] [address] Content Creation Manager: Janes Vasquez MD Calcium [Mass/Vol] 7.9 mg/dL Low 8.6-10.3 [facility] Comment on above: Performed By: #### 1 7306, 36524, 622, 87192 #### [facility] of [place] [address] Content Creation Manager: Janes Vasquez MD Chloride [Moles/Vol] 107 mmol/L Normal 98-110 [facility] Comment on above: Performed By: #### 1 7306, 77319, 622, 32003 #### [facility] [place] [address] Content Creation Manager: Janes Vasquez MD CO2 [Moles/Vol] 24 mmol/L Normal 20-32 [facility] Comment on above: Performed By: #### 1 7306, 13342, 622, 72783 #### [facility] [place] [address] Content Creation Manager: Janes Vasquez MD Creatinine [Mass/Vol] 1.53 mg/dL High 0.70-1.28 [facility] Comment on above: Performed By: #### 1 7306, 65211, 622, 06610 #### [facility] of [place] [address] Content Creation Manager: Janes Vasquez MD GFR/1.73 sq M.predicted among non-blacks MDRD (S/P/Bld) [Vol rate/Area] 48 mL/min/{1.73_m2} Low > OR = 60 [facility] Comment on above: Performed By: #### 1 7306, 88907, 622, 19912 #### [facility] [place] [address] Content Creation Manager: Janes Vasquez MD Glucose [Mass/Vol] 142 mg/dL High 65-99 [facility] Comment on above: Result Comment: Fasting reference interval For someone without known diabetes, a glucose value >125 mg/dL indicates that they may have diabetes and this should be confirmed with a follow-up test. Performed By: #### 1 7306, 37721, 622, 27062 #### [facility] [place] [address] Content Creation Manager: Janes Vasquez MD Phosphate [Mass/Vol] 4.3 mg/dL Normal 2.1-4.3 [facility] Comment on above: Performed By: #### 1 7306, 15998, 622, 52682 #### [facility] [place] [address] Content Creation Manager: Janes Vasquez MD Potassium [Moles/Vol] 4.0 mmol/L Normal 3.5-5.3 [facility] Comment on above: Performed By: #### 1 7306, 80541, 622, 75697 #### [facility] [place] [address] Content Creation Manager: Janes Vasquez MD Sodium [Moles/Vol] 141 mmol/L Normal 135-146 [facility] Comment on above: Performed By: #### 1 7306, 81563, 622, 88982 #### [facility] [place] [address] Content Creation Manager: Janes Vasquez MD Urea nitrogen [Mass/Vol] 32 mg/dL High 7-25 [facility] Comment on above: Performed By: #### 1 7306, 65814, 622, 63693 #### [facility] [place] [address] Content Creation Manager: Janes Vasquez MD Urea nitrogen/Creatinine [Mass ratio] 21 mg/mg Normal 6-22 [facility] Comment on above: Performed By: #### 1 7306, 70138, 622, 60045 #### [facility] of [address] [address] Content Creation Manager: Janes Vasquez MD VITAMIN D,25-OH,TOTAL,IAon 0 08-04-2024 VITAMIN D,25-OH,TOTAL,IA 48 ng/mL Normal 30-100 [email or web address] Comment on above: Result Comment: Merlene min D Status 25-OH Vitamin D: Deficiency: <20 ng/mL Insufficiency: 20 - 29 ng/mL Optimal: > or = 30 ng/mL For 25-OH Vitamin D testing on patients on D2-supplementation and patients for whom quantitation of D2 and D3 fractions is required, the [facility]ure[facility](TM) 25-OH VIT D, (D2,D3), LC/MS/MS is recommended: order code 59426 (patients >2yrs). See Note 1 Note 1 For additional information, please refer to http://education.Intellio/faq/CFK199 (This link is being provided for informational/ educational purposes only.) Performed By: #### 1 7306, 34155, 622, 75707 #### [email or web address] [facility], [address] [place] [phone] Content Creation Manager: Janes Vasquez MD ITPon 08-03-2024 Radiology Study observation (narrative) [facility] MR BRAIN W AND WO CONTRASTon 07-14-2024 MR BRAIN W AND WO CONTRAST MR BRAIN W AND WO CONTRAST 07/14/2024 10:36 AM CLINICAL INDICATIONS: Right eye droop Technique: Multiplanar multisequence MRI of the brain was performed with and without contrast. COMPARISON: None. FINDINGS: No acute cortical infarct. No cerebral edema or evidence of acute intracranial hemorrhage. No extra-axial fluid collections. Ventricles and sulci are normal for the patient's age. Periventricular subcortical T2/FLAIR signal hyperintensities likely related to chronic microangiopathic change.. No mass, mass effect, or midline shift. Normal arterial and venous flow voids. No abnormal intracranial enhancement. No acute abnormalities of the orbits within the resolution of this study. Retrobulbar fat is clear. No suspicious enhancement. No significant proptosis. No intraorbital masses. Paranasal sinuses are clear. Mastoid air cells are clear. Calvarium and extra cranial soft tissues are normal. IMPRESSION: No acute or subacute intracranial abnormalities. No MRI findings to account for the patient's reported ocular symptoms. If symptoms persist dedicated MRI of the orbits may be warranted. Electronically signed: Osmel Quinn MD. 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 Signed By: 07/02/24223607/02/242236 DD/ 37 TD/TT: Refrigeration Engine Operator: [facility] Radiology Study observation (narrative) [facility] ITPOrdered By: Radiologist R adiology on 07-02-2024 [facility] Work Phone: PTH, INTACT (ICMA) AND IONIZ ED CALCIUMon 06-17-2024 Calcium [Mass/Vol] 8.2 mg/dL Low 8.6-10.3 [facility] Comment on above: Performed By: #### 3 6736 #### [facility] [place] [address] Content Creation Manager: Janes Vasquez MD CALCIUM, IONIZED 4.5 mg/dL Low 4.7-5.5 [facility] Comment on above: Performed By: #### 3 6736 #### [facility] [place] [address] Content Creation Manager: Janes Vasquez MD PARATHYROID HORMONE, INTACT 10 pg/mL Low 16-77 [facility] Comment on above: Result Comment: Interpretive Guide Intact PTH Calcium ------- Normal Parathyroid Normal Normal Hypoparathyroidism Low or Low Normal Low Hyperparathyroidism Primary Normal or High High Secondary High Normal or Low Tertiary High High Non-Parathyroid Hypercalcemia Low or Low Normal High Performed By: #### 3 6736 #### [facility] [place] [address] Content Creation Manager: Janes Vasquez MD ITPon 06-04-2024 [place] [address] Cardiac Rehab Report Signed Patient: YOLI ANTUNEZ MR#: [id number] : 1955 Acct:[id number] Age/Sex: 69 / M ADM Date: 06/01/24 Loc: CR Attending Dr: YANDEL SHEN APRN Ordering Physician: YANDEL SHEN APRN Date of Service: 06/04/24 Procedure(s): ITP Accession Number(s): [id number] cc: [facility] Test Date: 2024-06-04 [facility] Department: Room: - 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 Signed By: 06/04/24165406/04/241654 DD/ 07 TD/TT: Refrigeration Engine Operator: DEVIN Rubin Radiology Study observation (narrative) [facility] ITPOrdered By: Radiologist R adiology on 06-04-2024 [facility] Work Phone: 36on 06-02-2024 36 Stiven in cardiac rehab made aware. He will address this tomorrow when patient sees them and he'll let me know. [facility] o [facility] 36on 05-26-2024 36 I offered Ranexa, he was not interested as he tried it in the past and it did not work. We can offer it again. [facility] 36 Stiven in rehab made aw are. He wasn't able to tolerate Imdur, but would he benefit from Ranexa? [facility] 36on 05-25-2024 36 Yea, unfortunately n ot much further we can do. He's in rehab so that we can try to help improve his symptoms. [facility] 36 Stiven from [facility] Cardiac Rehab wanted you make you aware that patient is c/o daily chest pain and taking nitroglycerin daily. Stiven said patient doesn't seem concerned about this but he wanted to make us aware. I informed Stiven that unfortunately this is kind of Mr. Antunez's baseline. Any suggestions? [facility] Telephoneon 05-25-2024 Telephone [id number] Fr freda Antunez Jr. 1955 M Date Provider Department Center 05/25/2024 Heydi-SHIVANI LARA [facility] Family History Problem Relation Age of Onset Hypertension Mother Cancer Mother Stroke Mother Hypertension Father Aortic aneurysm Father Cancer Father Aortic aneurysm Paternal Grandfather Sudden Neg Hx Family Status - Relation Status Age at Mother Father Paternal Grandfather Neg Hx [facility] Office Visiton 04-28-2024 Follow-up visit [id number] Fr freda Antunez Jr. 1955 M Date Provider Department Center 04/28/2024 YANDEL VILLEGAS LEX [facility] Family History Problem Relation Age of Onset Hypertension Mother Cancer Mother Stroke Mother Hypertension Father Aortic aneurysm Father Cancer Father Aortic aneurysm Paternal Grandfather Sudden Neg Hx Family Status - Relation Status Age at Mother Father Paternal Grandfather Neg Hx Level of Service:72883 HI OFFICE/OUTPATIENT ESTABLISHED MOD MDM 30 MIN Reason for Visit and Comments: Coronary Artery Disease [187] Atrial Fibrillation [80] Chest Pain [689743] Normal [facility] 36on 04-11-2024 36 Post Discharge Call Good afternoon, I am Ruben Lopez, RN a lead nurse from [facility]. I am calling you to follow up on your stay with us and make sure all of your questions have been answered. You will be receiving a survey either electronic or via mail and we always aim to receive 9???s and 10???s. If there is any reason you feel as though you cannot give us these scores please indicate that now. 1. How have you been feeling since being discharged from the hospital? Off and on 2. Did you understand your discharge instructions when they were given to prior to leaving? Yes Were you given an opportunity to ask questions? Yes 3. While a patient in the hospital, was your call light answered in a timely manner? Yes 4. Do have access to all medications that were prescribed to you at discharge? Yes 5. How would you rate your overall stay on a scale of 0-10, 10 being the best experience you have ever had. 8-9 6. Do you have any further questions you would like to discuss? No Patient Name Yoli Peoples Harmony Isidro Date 04/11/24 Normal [facility] Telephoneon 04-11-2024 Telephone [phone] Fr freda Antunez Jr. 1955 M Date Provider Department Center 04/11/2024 RUBEN SANTOS [facility] C Family History Problem Relation Age of Onset Hypertension Mother Cancer Mother Stroke Mother Hypertension Father Aortic aneurysm Father Cancer Father Aortic aneurysm Paternal Grandfather Sudden Neg Hx Family Status - Relation Status Age at Mother Father Paternal Grandfather Neg Hx Normal [facility] 30on 04-10-2023 30 The patient is Moder ately Stable - Low risk of patient condition declining or worsening The patient's goals for the shift include Comfort and Rest The clinical goals for the shift include VSS and Safety Over the shift, the patient did make progress toward the following goals. Problem: Pain - Adult Goal: Verbalizes/displays adequate comfort level or baseline comfort level Outcome: Progressing Problem: Safety - Adult Goal: Free from fall injury Outcome: Progressing Problem: Discharge Planning Goal: Discharge to home or other facility with appropriate resources Outcome: Progressing Problem: Chronic Conditions and Co-morbidities Goal: Patient's chronic conditions and co-morbidity symptoms are monitored and maintained or improved Outcome: Progressing Normal [facility] BASIC METABOLIC PANELon 03-23 Anion gap [Moles/Vol] 12 mmol/L Normal - [facility] Comment on above: Performed By: #### L AB15 #### [facility] ([facility]) [address] [place] [address] Calcium [Mass/Vol] 7.7 mg/dL Low 8.6-10.3 [facility] Comment on above: Performed By: #### L AB15 #### [facility] ([facility]) [address] [place] [address] Chloride [Moles/Vol] 106 mmol/L Normal 98-107 [facility] Comment on above: Performed By: #### L AB15 #### [facility] ([facility]) [address] [place] [address] CO2 [Moles/Vol] 26 mmol/L Normal 21- [facility] Comment on above: Performed By: #### L AB15 #### [facility] ([facility]) [address] [place] [address] Creatinine [Mass/Vol] 1.41 mg/dL High 0.70-1.30 [facility] Comment on above: Performed By: #### L AB15 #### [facility] ([facility]) [address] [place] [address] GLOMERULAR FILTRATION RATE ML/MIN/1.73 SQ M.PREDICTED 53.6 mL/min/1.73m*2 Low >60.0 [facility] Comment on above: Result Comment: The [facility]???s estimated glomerular filtration rate (eGFR) will no [...] individuals. Performed By: #### L AB15 #### [facility] ([facility]) [address] [place] [address] Glucose [Mass/Vol] 85 mg/dL Normal 70-100 [facility] Comment on above: Performed By: #### L AB15 #### [facility] ([facility]) [address] [place] [address] Potassium [Moles/Vol] 4.2 mmol/L Normal 3.5-5.1 [facility] Comment on above: Performed By: #### L AB15 #### [facility] ([facility]) [address] [place] [address] Sodium [Moles/Vol] 140 mmol/L Normal 136-145 [facility] Comment on above: Performed By: #### L AB15 #### [facility] ([facility]) [address] [place] [address] Urea nitrogen [Mass/Vol] 25 mg/dL Normal 7-25 [facility] Comment on above: Performed By: #### L AB15 #### [facility] ([facility]) [address] [place] [address] UREA NITROGEN/CREATININE (MASS RATIO) IN SER/PLAS 17.7 Normal [facility] Comment on above: Performed By: #### L AB15 #### [facility] ([facility]) [address] [place] [address] 30on 04-09-2024 30 Daily Case Managemen t Update Multidisciplinary rounds have been completed. Barriers to Discharge: Patient was at cardio clinic and EKG showed concern for unstable angina so patient sent to ER, in ER trops negative, Cardiology consulted, plan for stress test, and echo done. Discharge dispo: pending clinical course, plan at this time is for patient to discharge home when medically ready. Diet: Dietary Orders (From admission, onward) Start Ordered 04/10/24 0001 Diet NPO Diet effective midnight Comments: Sips with medications Question Answer Comment Reason for NPO: Other Other Reason: stress test 04/09/24 1334 04/09/24 0942 Regular Diet Diet effective now Question: Room Service? Answer: Yes 04/09/24 0942 Physician Expected Discharge Date: 04/10/2024 Discharge Delays: PT Six Click Score: 24 OT Six Click Score: PT Recommendations: OT Recommendations: New Consults: Consult Orders (From admission, onward) Start Ordered 04/09/24 0919 Inpatient consult to Cardiology Once Specialty: Cardiology Provider: (Not yet assigned) Question Answer Comment Consulting Group CARDIOLOGY TEAM Reason for Consult? chest pain Level of Consultation Consultation and Management 04/09/24 0918 Normal [facility] 30 The patient is Moder ately Stable - Low risk of patient condition declining or worsening The patient's goals for the shift include Comfort and Rest The clinical goals for the shift include VSS and Safety Over the shift, the patient did make progress toward the following goals. There are no barriers to progression. Problem: Pain - Adult Goal: Verbalizes/displays adequate comfort level or baseline comfort level Outcome: Progressing Problem: Safety - Adult Goal: Free from fall injury Outcome: Progressing Problem: Discharge Planning Goal: Discharge to home or other facility with appropriate resources Outcome: Progressing Problem: Chronic Conditions and Co-morbidities Goal: Patient's chronic conditions and co-morbidity symptoms are monitored and maintained or improved Outcome: Progressing Normal [facility] Abstracton 04-09-2024 Abstract [id number] Fr freda Antunez Jr. 1955 M Date Provider Department Center 04/09/2024 3244-[facility] Family History Problem Relation Age of Onset Hypertension Mother Cancer Mother Stroke Mother Hypertension Father Aortic aneurysm Father Cancer Father Aortic aneurysm Paternal Grandfather Sudden Neg Hx Family Status - Relation Status Age at Mother Father Paternal Grandfather Neg Hx Normal [facility] BASIC METABOLIC PANELon 12- Anion gap [Moles/Vol] 12 mmol/L Normal 7-20 [facility] Comment on above: Performed By: #### L AB15 #### [facility] ([facility]) [address] [place] [address] Calcium [Mass/Vol] 7.6 mg/dL Low 8.6-10.3 [facility] Comment on above: Performed By: #### L AB15 #### [facility] ([facility]) [address] [place] [address] Chloride [Moles/Vol] 108 mmol/L High 98-107 [facility] Comment on above: Performed By: #### L AB15 #### [facility] ([facility]) [address] [place] [address] CO2 [Moles/Vol] 25 mmol/L Normal 21-31 [facility] Comment on above: Performed By: #### L AB15 #### [facility] ([facility]) [address] [place] [address] Creatinine [Mass/Vol] 1.34 mg/dL High 0.70-1.30 [facility] Comment on above: Performed By: #### L AB15 #### [facility] ([facility]) [address] [place] [address] GLOMERULAR FILTRATION RATE ML/MIN/1.73 SQ M.PREDICTED 57.0 mL/min/1.73m*2 Low >60.0 [facility] Comment on above: Result Comment: The [facility]???s estimated glomerular filtration rate (eGFR) will no [...] individuals. Performed By: #### L [id number] #### [facility] ([facility]) [address] [place] [address] Glucose [Mass/Vol] 86 mg/dL Normal 70-100 [facility] Comment on above: Performed By: #### L [id number] #### [facility] ([facility]) [address] [place] [address] Potassium [Moles/Vol] 4.1 mmol/L Normal 3.5-5.1 [facility] Comment on above: Performed By: #### L [id number] #### [facility] ([facility]) [address] [place] [address] Sodium [Moles/Vol] 141 mmol/L Normal 136-145 [facility] Comment on above: Performed By: #### L [id number] #### [facility] ([facility]) [address] [place] [address] Urea nitrogen [Mass/Vol] 27 mg/dL High 7-25 [facility] Comment on above: Performed By: #### L [id number] #### [facility] ([facility]) [address] [place] [address] UREA NITROGEN/CREATININE (MASS RATIO) IN SER/PLAS 20.1 Normal [facility] Comment on above: Performed By: #### L [id number] #### [facility] ([facility]) [address] [place] [address] CONSULTon 04-09-2024 CONSULT ------- Attestation signed by Erika Mesa MD at 05/23/2024 12:57 PM I personally saw and examined the patient on the same date of service as the resident/fellow. I discussed the findings and therapeutic plan with the resident/fellow. Plan of care was discussed with patient, and patient is agreeable with plan. I agree with the documentation, except for any edits/updates below. Teaching Physician's Revisions: none Erika Mesa MD [place] [facility] Cardiology Consult Note Reason for Consult: chest pain HPI: Yoli Antunez Jr. is a 68 y.o. male for primary hypertension, atrial fibrillation on sotalol status post watchman not on anticoagulation, sinus node dysfunction status post dual-chamber permanent pacemaker, coronary artery disease status post cardiac catheterization 08/2023, POTS who presented to [facility] ED with ongoing chest pain that has been worsening over the last year, he was seen in our cardiology clinic as outpatient and was sent to emergency department for concern of unstable angina. He reported that his chest pain is episodic, worse with exertion, relieved with nitroglycerin, he has been compliant with his medications including aspirin and Lipitor. His initial troponin was negative, repeat troponin remained negative. EKG with nonspecific T wave abnormality. Cardiology team consulted for further evaluation and management Cardiology ROS: Review of Systems Constitutional: Negative for activity change and appetite change. Respiratory: Negative for cough, chest tightness, shortness of breath and wheezing. Cardiovascular: Positive for chest pain. Negative for palpitations and leg swelling. Gastrointestinal: Negative for abdominal pain, nausea and vomiting. Genitourinary: Negative for dysuria and hematuria. Neurological: Negative for dizziness and light-headedness. Past Medical History He has a past [...] about 56 years ago. He has a 16 pack-year smoking history. He quit smokeless tobacco [...] Allergies Penicillins, Tikosyn [dofetilide], and Vancomycin Medications Current Outpatient Medications Medication Instructions aspirin 81 mg, oral, Daily atorvastatin (LIPITOR) 40 mg, oral, Nightly calcium 500 mg calcium (1,250 mg) tablet 1 tablet, oral, Daily levothyroxine (SYNTHROID, LEVOXYL) 150 mcg, oral, Daily before breakfast midodrine (PROAMATINE) 5 mg, oral, 3 times daily sotalol (BETAPACE) 80 mg, oral, Every 12 hours scheduled sotalol (BETAPACE) 120 mg, oral, Every 12 hours scheduled Medications Prior to Admission Medication Sig Dispense Refill Last Dose aspirin 81 mg chewable tablet Chew 1 tablet (81 mg) in the morning. Do not start before March 08, 2022. 30 tablet 3 04/08/2024 calcium 500 mg calcium (1,250 mg) tablet Take 1 tablet by mouth in the morning. 04/08/2024 levothyroxine (Synthroid, Levoxyl) 150 mcg tablet Take 150 mcg by mouth before breakfast. 04/08/2024 midodrine (Proamatine) 5 mg tablet Take 1 tablet (5 mg) by mouth three times daily. 90 tablet 3 04/08/2024 sotalol (Betapace) 120 mg tablet Take 1 tablet (120 mg) by mouth every 12 (twelve) hours. 60 tablet 11 04/08/2024 atorvastatin (Lipitor) 40 mg tablet Take 1 tablet (40 mg) by mouth at bedtime. 30 tablet 0 sotalol (Betapace) 80 mg tablet Take 1 tablet (80 mg) by mouth every 12 (twelve) hours. 60 tablet 0 Last Recorded Vitals Patient Vitals for the past 24 hrs: BP Temp Temp src Pulse Resp SpO2 Height Weight 04/09/24 1020 116/77 -- -- 78 -- -- -- -- 04/09/24 0731 112/86 36.6 ???C (97.9 ???F) Temporal 74 10 96 % -- -- 04/09/24 0610 (!) 128/95 -- -- 78 22 -- -- -- 04/09/24 0409 -- - (more content not included)... Normal [facility] TROPONIN Ion 04-09-2024 Troponin I.cardiac [Mass/Vol] 0.00 ng/mL Normal 0.00-0.04 [facility] Comment on above: Performed By: #### L [id number] #### [facility] ([facility]) [address] [place] [address] Troponin I.cardiac [Mass/Vol] 0.00 ng/mL Normal 0.00-0.04 [facility] Comment on above: Performed By: #### L [id number] ####[facility] ([facility])[address] [place] [address] 30on 04-08-2024 30 The patient is Moder ately Stable - Low risk of patient condition declining or worsening The patient's goals for the shift include COMFORT The clinical goals for the shift include VSS Normal [facility] 30 The patient is Moder ately Stable - Low risk of patient condition declining or worsening The patient's goals for the shift include COMFORT The clinical goals for the shift include VSS Normal [facility] APTTon 04-08-2024 ACTIVATED PARTIAL THROMBOPLASTIN TIME IN PPP BY COAGULATION ASSAY 31.1 Seconds Normal 25.0-35.0 [facility] Comment on above: Result Comment: Clin ical significance of the APTT is questionable in the presence of heparin. Performed By: #### L [id number] #### [facility] ([facility]) [address] [place] [address] B-TYPE NATRIURETIC PEPTIDEon 04-08-2024 Natriuretic peptide B (Bld) [Mass/Vol] 66 pg/mL Normal 0-100 [facility] Comment on above: Performed By: #### L [id number] ####[facility] [place] [address] BASIC METABOLIC PANELon 03-22 Anion gap [Moles/Vol] 13 mmol/L Normal 7-20 [facility] Comment on above: Performed By: #### L [id number] #### [facility] [address] [place] [address] Calcium [Mass/Vol] 8.3 mg/dL Low 8.6-10.3 [facility] Comment on above: Performed By: #### L [id number] #### [facility] ([facility]) [address] [place] [address] Chloride [Moles/Vol] 107 mmol/L Normal 98-107 [facility] Comment on above: Performed By: #### L [id number] #### [facility] ([facility]) [address] [place] [address] CO2 [Moles/Vol] 24 mmol/L Normal 21-31 [facility] Comment on above: Performed By: #### L [id number] #### [facility] ([facility]) [address] [place] [address] Creatinine [Mass/Vol] 1.60 mg/dL High 0.70-1.30 [facility] Comment on above: Performed By: #### L [id number] #### [facility] ([facility]) [address] [place] [address] GLOMERULAR FILTRATION RATE ML/MIN/1.73 SQ M.PREDICTED 46.1 mL/min/1.73m*2 Low >60.0 [facility] Comment on above: Result Comment: [facility]???s estimated glomerular filtration rate (eGFR) will no [...] individuals. Performed By: #### L [id number] #### [facility] ([facility]) [address] [place] [address] Glucose [Mass/Vol] 85 mg/dL Normal 70-100 [facility] Comment on above: Performed By: #### L [id number] #### [facility] ([facility]) [address] [place] [address] Potassium [Moles/Vol] 4.0 mmol/L Normal 3.5-5.1 [facility] Comment on above: Performed By: #### L [id number] #### [facility] ([facility]) [address] [place] [address] Sodium [Moles/Vol] 140 mmol/L Normal 136-145 [facility] Comment on above: Performed By: #### L [id number] #### [facility] ([facility]) [address] [place] [address] Urea nitrogen [Mass/Vol] 29 mg/dL High 7-25 [facility] Comment on above: Performed By: #### L [id number] #### [facility] ([facility]) [address] [place] [address] UREA NITROGEN/CREATININE (MASS RATIO) IN SER/PLAS 18.1 Normal [facility] Comment on above: Performed By: #### L [id number] #### [facility] ([facility]) [address] [place] [address] CBC WITH AUTO DIFFERENTIALon 04-08-2024 Basophils (Bld) [#/Vol] 0.05 10*3/uL Normal 0.00-0.20 [facility] Comment on above: Performed By: #### L [id number] #### [facility] ([facility]) [address] [place] [address] Basophils/100 WBC (Bld) 0.7 % Normal 0.0-1.0 [facility] Comment on above: Performed By: #### L [id number] #### [facility] ([facility]) [address] [place] [address] Eosinophils (Bld) [#/Vol] 0.24 10*3/uL Normal 0.00-0.50 [facility] Comment on above: Performed By: #### L [id number] #### [facility] ([facility]) [address] [place] [address] Eosinophils/100 WBC (Bld) 3.6 % Normal 0.0-6.0 [facility] Comment on above: Performed By: #### L [id number] #### [facility] ([facility]) [address] [place] [address] Erythrocyte distribution width (RBC) [Ratio] 15.5 % High 11.5-15.0 [facility] Comment on above: Performed By: #### L [id number] #### [facility] ([facility]) [address] [place] [address] ERYTHROCYTE MEAN CORPUSCULAR HEMOGLOBIN CONCENTRATION (G/DL) BY AUTOMATED 32.6 g/dL Normal 32.0-35.0 [facility] Comment on above: Performed By: #### L [id number] #### [facility] ([facility]) [address] [place] [address] Hematocrit (Bld) [Volume fraction] 42.7 % Normal 39.0-55.0 [facility] Comment on above: Performed By: #### L [id number] #### [facility] ([facility]) [address] [place] [address] Hemoglobin (Bld) [Mass/Vol] 13.9 g/dL Normal 13.0-17.0 [facility] Comment on above: Performed By: #### L [id number] #### [facility] ([facility]) [address] [place] [address] Immature granulocytes (Bld) [#/Vol] 0.05 10*3/uL Normal 0.00-0.20 [facility] Comment on above: Performed By: #### L [id number] #### [facility] ([facility]) [address] [place] [address] Immature granulocytes/100 WBC (Bld) 0.7 % Normal 0.0-1.0 [facility] Comment on above: Performed By: #### L [id number] #### [facility] ([facility]) [address] [place] [address] Lymphocytes (Bld) [#/Vol] 1.73 10*3/uL Normal 1.20-4.00 [facility] Comment on above: Performed By: #### L [id number] #### [facility] ([facility]) [address] [place] [address] Lymphocytes/100 WBC (Bld) 25.7 % Normal 20.0-45.0 [facility] Comment on above: Performed By: #### L [id number] #### [facility] ([facility]) [address] [place] [address] MCH (RBC) [Entitic mass] 28.1 pg Normal 27.0-33.0 [facility] Comment on above: Performed By: #### L [id number] #### [facility] ([facility]) [address] [place] [address] MCV (RBC) [Entitic vol] 86.3 fL Normal 82.0-98.0 [facility] Comment on above: Performed By: #### L [id number] #### [facility] ([facility]) [address] [place] [address] Monocytes (Bld) [#/Vol] 0.58 10*3/uL Normal 0.10-1.00 [facility] Comment on above: Performed By: #### L [id number] #### [facility] ([facility]) [address] [place] [address] Monocytes/100 WBC (Bld) 8.6 % Normal 5.0-12.0 [facility] Comment on above: Performed By: #### L [id number] #### [facility] ([facility]) [address] [place] [address] Neutrophils (Bld) [#/Vol] 4.09 10*3/uL Normal 1.60-7.60 [facility] Comment on above: Performed By: #### L [id number] #### [facility] ([facility]) [address] [place] [address] Neutrophils/100 WBC (Bld) 60.7 % Normal 40.0-72.0 [facility] Comment on above: Performed By: #### L [id number] #### [facility] ([facility]) [address] [place] [address] NRBC (PER 100 WBCS) BY AUTOMATED COUNT 0.0 % Normal 0 [facility] Comment on above: Performed By: #### L [id number] #### [facility] ([facility]) [address] [place] [address] PLATELETS (10*3/UL) IN BLOOD AUTOMATED COUNT 215 10*3/uL Normal 150-400 [facility] Comment on above: Performed By: #### L [id number] #### [facility] ([facility]) [address] [place] [address] RBC (Bld) [#/Vol] 4.95 10*6/uL Normal 4.20-5.70 [facility] Comment on above: Performed By: #### L [id number] #### [facility] ([facility]) [address] [place] [address] WBC (Bld) [#/Vol] 6.74 10*3/uL Normal 4.00-10.60 [facility] Comment on above: Performed By: #### L [id number] #### [facility] ([facility]) [address] [place] [address] CTA CHEST W IV CONTRASTon CTA CHEST W IV CONTRAST CTA chest: HISTORY: Chest pain. Evaluate for PE. CTA of the chest was obtained post intravenous administration of contrast. Pulse process 3-dimensional maximum intensity projection imaging was acquired and evaluated. Pulmonary vessels enhance normally without convincing evidence of emboli to within the limits of this exam. Coronary arterial atherosclerotic calcification appreciated. Ascending aorta measures 4.3 cm, mildly prominent. Descending thoracic aorta normal in caliber. There is no pleural or pericardial effusion. No pneumothorax seen. No significant consolidation. IMPRESSION: No acute cardiopulmonary findings. Mildly prominent ascending aorta measuring 4.[address] scans at this facility use dose modulation, iterative reconstruction, and/or weight based dosing when appropriate to reduce radiation dose to as low as reasonably achievable. Electronically signed: Jeramie Gleason. Normal [facility] D-DIMER, QUANTITATIVEon 03-22 FIBRIN D-DIMER (UG/L FEU) IN PLATELET POOR PLASMA 0.27 mcg/mL FEU Normal 0.27-0.49 [facility] Comment on above: Order Comment: D-Dim er values of less than 0.50 ug/ml (FEU) are considered to be a negative predictor of thrombosis. However, the D-Dimer result should be used in conjunction with pretest probability and should not be used alone to diagnose a thrombotic event. Performed By: #### L [id number] ####[facility] ([facility])[address] [place] [address] EDNURSon 04-08-2024 EDNURS Pt has complaints of CP and SOB for the past week. Pt has hx of afib and has a pacemaker. Pt states that MD had a concerning EKG and wanted the pt to get checked out. Normal [facility] EDPROVon 04-08-2024 EDPROV History of Present I llness Chief Complaint Patient presents with Chest Pain Shortness of Breath Initial evaluation completed by Dr. Syd Mcgregor MD at 1535. Yoli Peoples Jeseniamisaeljordi Isidro is a 68 y.o. y/o male presenting to the ED with c/o chest pain. Pt states he has had worsening chest pain since this morning. Pt states he has had chest pain intermittently for years. Pt states his pain feels like someone is sitting on his chest and is currently a 5/10 and at its highest was a 9/10. Pt states he has had SOB, and light headedness. Pt states his bobbin inspector performed an EKG and he had acute lead inversions and sent him in. Pt has a Hx of Afib. Pt denies hx of heart attack, DVT or PE. Pt states he only takes his daily Asprin occasionally and denies any other blood thinners. Pt states he has a Hx of high blood pressure but states recently his blood pressure has been running low. Pt states he has a remote Hx of smoking. Pt denies any recent long trips or travel. Pt denies any hx of CHF. History provided by: Patient No data recorded History Past Medical History: Diagnosis Date Arrhythmia [...] MR HEAD ANGIO WO IV CONTRAST 07/09/2022 [facility] MR IMAGING MR NECK ANGIO WO IV CONTRAST 07/09/2022 MR NECK ANGIO WO IV CONTRAST 07/09/2022 [facility] MR IMAGING NECK SURGERY THYROIDECTOMY Family History Problem Relation Name Age of Onset Hypertension Mother Mother Cancer Mother Mother Stroke Mother Mother Hypertension Father Father Aortic aneurysm Father Father Cancer Father Father Aortic aneurysm Paternal Grandfather Sudden Neg Hx Social History Tobacco Use Smoking status: Former Current packs/day: 0.00 Average packs/day: 1 pack/day for 16.0 years (16.0 ttl pk-yrs) Types: Cigarettes, Cigars Start date: 1967 Quit date: 1983 Years since quittin.9 Smokeless tobacco: Former Types: Chew Quit date: 1983 Vaping Use Vaping status: Never Used Substance Use Topics Alcohol use: Yes Alcohol/week: 1.0 standard drink of alcohol Types: 1 Cans of beer per week Comment: occasional Drug use: Never Review of Systems Review of Systems Respiratory: Positive for shortness of breath. Cardiovascular: Positive for chest pain. Neurological: Positive for light-headedness. Physical Exam ED Triage Vitals [04/08/24 1515] Temp Heart Rate Resp BP 36.3 ???C (97.4 ???F) 76 18 126/88 SpO2 Temp src Heart Rate Source Patient Position 100 % -- -- -- BP Location FiO2 (%) -- -- Physical Exam Vitals and nursing note reviewed. Constitutional: General: He is not in acute distress. Appearance: He is well-developed. HENT: Head: Normocephalic and atraumatic. Eyes: Conjunctiva/sclera: Conjunctivae normal. Cardiovascular: Rate and Rhythm: Normal rate and regular rhythm. Heart sounds: No murmur heard. Comments: Heart score 7 Age-2, symptoms-2, risk factors-2, EKG-1, troponin- Non-specific t wave changes from previous EKG on 01/30/24 Pulmonary: Effort: Pulmonary effort is normal. No respiratory distress. Breath sounds: Normal breath sounds. No wheezing. Abdominal: Palpations: Abdomen is soft. Tenderness: There is no abdominal tenderness. Musculoskeletal: General: No swelling. Cervical back: Normal range of motion. Comments: No pain to palpation of the chest. Skin: General: Skin is warm and dry. Capillary Refill: Capillary refill takes less than 2 seconds. Neurological: General: No focal deficit present. Mental Status: He is alert and oriented to person, place, and time. Psychiatric: Mood and Affect: Mood normal. Procedures ED Course & MDM ED Course as of 04/08/241920Apr 08, 2024 1753 Pt was signed out to me by Dr. Mcgregor. Workup including CTA chest was unremarkable. Pt was discussed with the hospitalist for admission. [TS] ED Course User Index [TS] Joselo Ortiz, Diagnoses as of 04/08/241920 Acute electrocardiogram changes Chest pain, unspecified type Medical Decision Making I, Damian doe, documented on behalf of Dr. Mcgregor. Chief complaint chest pain Differential Diagnosis includes but is not limited to MT, PE, costochondritis. Plan of Care: XR chest 1 view, CBC and differential, Basic metabolic panel, Troponin I, CBC auto differential, Protime-INR, APTT, B-type natriuretic peptide, D-dimer, quantitati (more content not included)... Normal [facility] Office Visiton 04-08-2024 Follow-up visit [id number] Fr freda Antunez Jr. 1955 M Date Provider Department Center 04/08/2024 Tami-SHUKRI VILCHIS [facility] Deniz [facility] Family History Problem Relation Age of Onset Hypertension Mother Cancer Mother Stroke Mother Hypertension Father Aortic aneurysm Father Cancer Father Aortic aneurysm Paternal Grandfather Sudden Neg Hx Family Status - Relation Status Age at Mother Father Paternal Grandfather Neg Hx Level of Service:45866 HI OFFICE/OUTPATIENT ESTABLISHED MOD MDM 30 MIN Reason for Visit and Comments: Follow-up [385202] - Dizziness shortness of breath Normal [facility] PROTIME-INRon 04-08-2024 INR IN PPP BY COAGULATION ASSAY 1.03 Normal 0.90-1.10 [facility] Comment on above: Result Comment: ACCC P [...] CHEST 1995;[id number]. Performed By: #### L [id number] ####[facility] ([facility])[address] [place] [address] PROTHROMBIN TIME (PT) IN PPP BY COAGULATION ASSAY 13.5 Seconds Normal 12.3-14.8 [facility] Comment on above: Performed By: #### L [id number] ####[facility] ([facility])[address] [place] [address] TROPONIN Ion 04-08-2024 Troponin I.cardiac [Mass/Vol] 0.00 ng/mL Normal 0.00-0.04 [facility] Comment on above: Performed By: #### L [id number] #### [facility] ([facility]) [address] [place] [address] Troponin I.cardiac [Mass/Vol] 0.01 ng/mL Normal 0.00-0.04 [facility] Comment on above: Performed By: #### L [id number] #### [facility] ([facility]) [address] [place] [address] C. DIFFICILE PCRon C. DIFFICILE PCR Negative [facility] 03-11-2024 Abstract [id number] Fr freda Antunez Jr. 1955 [facility] Provider Department Center 03/11/2024 324MARION FIGUEROA Denizmakeda Wright Family History Problem Relation Age of Onset Hypertension Mother Cancer Mother Stroke Mother Hypertension Father Aortic aneurysm Father Cancer Father Aortic aneurysm Paternal Grandfather Sudden Neg Hx Family Status - Relation Status Age at Mother Father Paternal Grandfather Neg Hx Normal [facility] Office Visiton 03-11-2024 Follow-up visit [id number] Fr freda Antunez Jr. 1955 Date Provider Department [place] 03/11/2024 [facility] Problem Relation Age of Onset Hypertension Mother Cancer Mother Stroke Mother Hypertension Father Aortic aneurysm Father Cancer Father Aortic aneurysm Paternal Grandfather Sudden Neg Hx Family Status - Relation Status Age at Mother Father Paternal Grandfather Neg Hx Level of Service:10332 HI OFFICE/OUTPATIENT ESTABLISHED MOD MDM 30 MIN Normal [facility] Abstracton 02-26-2024 Abstract [id number] Fr freda Antunez Jr. 1955 Date Provider Department [place] 02/26/2024 3244MARION AQUINO [facility] Family History Problem Relation Age of Onset Hypertension Mother Cancer Mother Stroke Mother Hypertension Father Aortic aneurysm Father Cancer Father Aortic aneurysm Paternal Grandfather Sudden Neg Hx Family Status - Relation Status Age at Mother Father Paternal Grandfather Neg Hx Normal [facility] Office Visiton 02-26-2024 Follow-up visit [id number] Fr camden Antunezomaricoty Peoples Jr. 1955 M Date Provider Department Center 02/26/2024 SHUKRI READ [facility] Family History Problem Relation Age of Onset Hypertension Mother Cancer Mother Stroke Mother Hypertension Father Aortic aneurysm Father Cancer Father Aortic aneurysm Paternal Grandfather Sudden Neg Hx Family Status - Relation Status Age at Mother Father Paternal Grandfather Neg Hx Level of Service:03032 [place] OFFICE/OUTPATIENT ESTABLISHED MOD MDM 30 MIN Normal [facility] Office Visiton 02-04-2024 Follow-up visit [id number] Fr freda Antunez Jr. 1955 M Date Provider Department Center 02/04/2024 LALITO MCDUFFIE [facility] Family History Problem Relation Age of Onset Hypertension Mother Cancer Mother Stroke Mother Hypertension Father Aortic aneurysm Father Cancer Father Aortic aneurysm Paternal Grandfather Sudden Neg Hx Family Status - Relation Status Age at Mother Father Paternal Grandfather Neg Hx Level of Service:58576 [place] OFFICE/OUTPATIENT ESTABLISHED LOW MDM 20 MIN Normal [facility] 36on 01-31-2024 36 Post Discharge Call Good morning, I am Giulia Tinoco RN a lead nurse from [facility]. I am calling you to follow up on your stay with us and make sure all of your questions have been answered. You will be receiving a survey either electronic or via mail and we always aim to receive 9???s and 10???s. If there is any reason you feel as though you cannot give us these scores please indicate that now. 1. How have you been feeling since being discharged from the hospital? I've been feeling ok 2. Did you understand your discharge instructions when they were given to prior to leaving? Yes Were you given an opportunity to ask questions? Yes 3. While a patient in the hospital, was your call light answered in a timely manner? Yes 4. Do have access to all medications that were prescribed to you at discharge? Yes 5. How would you rate your overall stay on a scale of 0-10, 10 being the best experience you have ever had. 7 6. Do you have any further questions you would like to discuss? No I asked Mr. Antunez what we could do to improve our care (for the rating of a 7). He stated that the nursing care and hospital itself was great, but the doctor's care was lacking. I asked if there was anything I could do to help or anything he could elaborate with and he stated he was talking to them and taking care of it himself. Patient Name Yoli Antunez Jr. Date 01/31/24 [facility] Orders Onlyon 01-31-2024 Orders Only [id number] Fr freda Antunez Jr. 1955 M Date Provider Department Center 01/31/2024 AMANDA PRETTY [facility] HeartVAS Family History Problem Relation Age of Onset Hypertension Mother Cancer Mother Stroke Mother Hypertension Father Aortic aneurysm Father Cancer Father Aortic aneurysm Paternal Grandfather Sudden Neg Hx Family Status - Relation Status Age at Mother Father Paternal Grandfather Neg Hx Normal [facility] Telephoneon 01-31-2024 Telephone [id number] Fr Harmony freda Richelle Isidro 1955 M Date Provider Department Center 01/31/2024 GIULIA AVILA [facility] Medical C Family History Problem Relation Age of Onset Hypertension Mother Cancer Mother Stroke Mother Hypertension Father Aortic aneurysm Father Cancer Father Aortic aneurysm Paternal Grandfather Sudden Neg Hx Family Status - Relation Status Age at Mother Father Paternal Grandfather Neg Hx Reason for Visit and Comments: Hospital Follow-up [832] - Hospital follow up [facility] 30on 01-30-2024 30 The patient is Moder ately Stable - Low risk of patient condition declining or worsening The patient's goals for the shift include comfort The clinical goals for the shift include hemodynamically stable Problem: Pain - Adult Goal: Verbalizes/displays adequate comfort level or baseline comfort level Outcome: Progressing Problem: Safety - Adult Goal: Free from fall injury Outcome: Progressing Flowsheets (Taken 01/30/2024 0806) Free from fall injury: Assess patient frequently for physical needs Identify cognitive and physical deficits and behaviors that affect risk of falls Problem: Discharge Planning Goal: Discharge to home or other facility with appropriate resources Outcome: Progressing Problem: Chronic Conditions and Co-morbidities Goal: Patient's chronic conditions and co-morbidity symptoms are monitored and maintained or improved Outcome: Progressing Normal [facility] BASIC METABOLIC PANELon 01-20 Anion gap [Moles/Vol] 10 mmol/L Normal 7-20 [facility] Comment on above: Performed By: #### L [id number] ####[facility] ([facility])[address] [place] [address] Calcium [Mass/Vol] 7.2 mg/dL Low 8.6-10.3 [facility] Comment on above: Performed By: #### L [id number] ####[facility] ([facility])[address] [address] Chloride [Moles/Vol] 110 mmol/L High 98-107 [facility] Comment on above: Performed By: #### L [id number] ####[facility] ([facility])[address] [place] [address] CO2 [Moles/Vol] 24 mmol/L Normal 21-31 [facility] Comment on above: Performed By: #### L [id number] ####[facility] ([facility])[address] [facility] [place] [address] Creatinine [Mass/Vol] 1.21 mg/dL Normal 0.70-1.30 [facility] Comment on above: Performed By: #### L [id number] ####[facility] ([facility])[address] [place] [address] GLOMERULAR FILTRATION RATE ML/MIN/1.73 SQ M.PREDICTED 64.4 mL/min/1.73m*2 Normal >60.0 [facility] Comment on above: Result Comment: The [facility]???s estimated glomerular filtration rate (eGFR) will no [...] of individuals. Performed By: #### L [id number] ####[facility] ([facility])[address] [place] [address] Glucose [Mass/Vol] 77 mg/dL Normal 70-100 [facility] Comment on above: Performed By: #### L [id number] ####[facility] ([facility])[address] [place] [address] Potassium [Moles/Vol] 3.6 mmol/L Normal 3.5-5.1 [facility] Comment on above: Performed By: #### L [id number] ####[facility] ([facility])[address] [place] [address] Sodium [Moles/Vol] 140 mmol/L Normal 136-145 [facility] Comment on above: Performed By: #### L [id number] ####[facility] ([facility])[address] [place] [address] Urea nitrogen [Mass/Vol] 29 mg/dL High 7-25 [facility] Comment on above: Performed By: #### L [id number] ####[facility] ([facility])[address] [place] [address] UREA NITROGEN/CREATININE (MASS RATIO) IN SER/PLAS 24.0 Normal [facility] Comment on above: Performed By: #### L [id number] ####[facility] ([facility])[address] [place] [address] CONSULTon 01-30-2024 CONSULT [place] Electrophysiology Consult Note Reason for visit: Afib HPI: Yoli Peoples Harmony Isidro is a 68 y.o. year old with past medical history of dual-chamber pacemaker with explant of his loop on 07/09/2023 for what was believed to be sinus node dysfunction and associated chest pain. He has continued to experience the same despite this. He has a history of having previously undergone CTI flutter ablation by Dr. Vilchis on 12/08/2019 and thereafter had A-fib ablation by Peter Grey in [place] with PVI plus posterior box isolation was performed with a repeat ablation by her again. Due to the recurrence he presented to mo for repeat PVI which was performed on 08/25/2020. At the PVI plus posterior box isolation for reconnection in all the veins. He also had an attempted left fifth left digit closure by Dr. TINSLEY but due to laxative did state the procedure was aborted on 12/12/2021. He also underwent a loop monitor by me for further evaluation of what he described as palpitations but did not reveal any evidence of A-fib thus far. He has not revealed to endorse complaints of chest pain and since the time LOOP was implanted has never showed A-fib. During this admission he was noted to be in atrial fibrillation and was subsequently transferred here for further evaluation. Previously he had trialed sotalol and this was stopped due to concern of QT prolongation. Since his admission he has been in and out of A-fib. PMH: Past Medical History: Diagnosis Date Arrhythmia [...] MR HEAD ANGIO WO IV CONTRAST 07/09/2022 [facility] MR IMAGING MR NECK ANGIO WO IV CONTRAST 07/09/2022 MR NECK ANGIO WO IV CONTRAST 07/09/2022 [facility] MR IMAGING NECK SURGERY THYROIDECTOMY SH: Social Determinants of Health Tobacco Use: Medium Risk (07/18/2023) Patient History Smoking Tobacco Use: Former Smokeless Tobacco Use: Former Passive Exposure: Not on file Alcohol Use: Not on file Financial Resource Strain: Low Risk (01/27/2024) Overall Financial Resource Strain (CARDIA) Difficulty of Paying Living Expenses: Not hard at all Food Insecurity: No Food Insecurity (01/27/2024) Hunger Vital Sign Worried About Running Out of Food in the Last Year: Never true Ran Out of Food in the Last Year: Not on file Transportation Needs: No Transportation Needs (01/27/2024) Transportation Lack of Transportation (Medical): No Lack of Transportation (Non-Medical): Not on file Physical Activity: Not on file Stress: Not on file Social Connections: Not on file Intimate Partner Violence: Not At Risk (01/27/2024) Humiliation, Afraid, Rape, and Kick questionnaire Fear of Current or Ex-Partner: No Emotionally Abused: No Physically Abused: No Sexually Abused: No Depression: Not at risk (06/17/2023) PHQ-2 PHQ-2 Score: 0 Housing Stability: Low Risk (01/27/2024) Housing Stability Vital Sign Unable to Pay for Housing in the Last Year: Not on file Number of Places Lived in the Last Year: Not on file Unstable Housing in the Last Year: No Utilities: Not At Risk (01/27/2024) [facility] Utilities Threatened with loss of utilities: No Allergies: Allergies Allergen Reactions Penicillins Other As a child Tikosyn [Dofetilide] Other aphasia Vancomycin Itching Itching hands/feet Weight: @WEIGHT@ Visit Vitals BP 123/80 Pulse 72 Temp 37 ???C (98.6 ???F) (Temporal) Resp 18 Ht 1.981 m (6' 6 ) Wt 104 kg (228 lb 12.8 oz) SpO2 100% BMI 26.44 kg/m??? Smoking Status Former BSA 2.39 m??? Meds: No current facility-administered medications on file prior to encounter. Current Outpatient Medications on File Prior to Encounter Medication Sig Dispense Refill aspirin 81 mg chewable tablet Chew 1 tablet (81 mg) in the morning. Do not start before March 08, 2022. 30 tablet 3 calcium 500 mg calcium (1,250 mg) tablet Take 1 tablet by mouth in the morning. levothyroxine (Synthroid, Levoxyl) 150 mcg tablet Take 150 mcg by mouth before breakfast. [DISCONTINUED] calcitriol (Rocaltrol) 0.25 mcg capsule 1 (one) time each day at the same time. [DISCONTINUED] cyanocobalamin (Vitamin B-12) 1,000 mcg tablet Take 1.25 mcg by mouth every 7 (seven) days. [DISCONTINUED] levothyroxine (Synthroid, Levoxyl) 150 mcg tablet Take 150 mcg by mouth before breakfast. [DISCONTINUED] metoprolol tartrate (Lopressor) 25 mg tablet Take 1 tablet (25 mg) by mo (more content not included)... Normal [facility] MAGNESIUMon 01-30-2024 Magnesium [Mass/Vol] 1.9 mg/dL Normal 1.9-2.7 [facility] Comment on above: Performed By: #### L [id number] #### [facility] ([facility]) [address] [place] [address] 30on 01-29-2024 30 The patient is Moder ately Stable - Low risk of patient condition declining or worsening The patient's goals for the shift include comfort The clinical goals for the shift include VSS, pain control Over the shift, the patient did not make progress toward the following goals. Barriers to progression include sotalol titrations. Recommendations to address these barriers include making changes to the treatment plan as needed. Problem: Pain - Adult Goal: Verbalizes/displays adequate comfort level or baseline comfort level Outcome: Progressing Flowsheets (Taken 01/29/20242100) Verbalizes/displays adequate comfort level or baseline comfort level: Encourage patient to monitor pain and request assistance Assess pain using appropriate pain scale Administer analgesics based on type and severity of pain and evaluate response Implement non-pharmacological measures as appropriate and evaluate response Consider cultural and social influences on pain and pain management Problem: Safety - Adult Goal: Free from fall injury Outcome: Progressing Flowsheets (Taken 01/29/20242100) Free from fall injury: Assess patient frequently for physical needs Identify cognitive and physical deficits and behaviors that affect risk of falls [facility] fall precautions as indicated by assessment Educate patient/family on patient safety, including physical limitations Instruct patient to call for assistance with activity based on assessment Modify environment to reduce risk of injury Problem: Discharge Planning Goal: Discharge to home or other facility with appropriate resources Outcome: Progressing Flowsheets (Taken 01/29/20242100) Discharge to home or other facility with appropriate resources: Identify barriers to discharge with patient and caregiver Arrange for needed discharge resources and transportation as appropriate Identify discharge learning needs (meds, wound care, etc) Arrange for interpreters to assist at discharge as needed Problem: Chronic Conditions and Co-morbidities Goal: Patient's chronic conditions and co-morbidity symptoms are monitored and maintained or improved Outcome: Progressing Flowsheets (Taken 01/29/2024 2101) Care Plan - Patient's Chronic Conditions and Co-Morbidity Symptoms are Monitored and Maintained or Improved: Monitor and assess patient's chronic conditions and comorbid symptoms for stability, deterioration, or improvement Collaborate with multidisciplinary team to address chronic and comorbid conditions and prevent exacerbation or deterioration [facility] 30 Daily Case Managemen t Update Multidisciplinary rounds have been completed. Barriers to Discharge: Pending clinical course and improvement in clinical condition. Patient on Sotalol therapy 80mg twice daily. Patient requiring EKG monitoring x6 doses per Cardiology. Discharge plan is home when medically ready. Diet: Dietary Orders (From admission, onward) Start Ordered 01/28/24 1219 Regular Diet Diet effective now Question: Room Service? Answer: Yes 01/28/24 1218 01/28/24 1050 Special Kitchen Request Once 01/28/24 1049 Physician Expected Discharge Date: 01/30/2024 Discharge Delays: PT Six Click Score: 24 OT Six Click Score: PT Recommendations: OT Recommendations: New Consults: Consult Orders (From admission, onward) Start Ordered 01/29/24 0807 Inpatient consult to Electrophysiology Once Specialty: Electrophysiology Provider: (Not yet assigned) Question Answer Comment [facility] ELECTROPHYSIOLOGY TEAM Reason for Consult? sotolol loading for atrial fibrillation Level of Consultation Consultation and Management 01/29/24 0806 [facility] 30 The patient is Moder ately Stable - Low risk of patient condition declining or worsening The patient's goals for the shift include comfort The clinical goals for the shift include hemodynamically stable Problem: Pain - Adult Goal: Verbalizes/displays adequate comfort level or baseline comfort level Outcome: Progressing Problem: Safety - Adult Goal: Free from fall injury Outcome: Progressing Flowsheets (Taken 01/29/2024 0711) Free from fall injury: Assess patient frequently for physical needs Identify cognitive and physical deficits and behaviors that affect risk of falls Problem: Discharge Planning Goal: Discharge to home or other facility with appropriate resources Outcome: Progressing Problem: Chronic Conditions and Co-morbidities Goal: Patient's chronic conditions and co-morbidity symptoms are monitored and maintained or improved Outcome: Progressing Normal [facility] 30 The patient is Moder ately Stable - Low risk of patient condition declining or worsening The patient's goals for the shift include rest/comfort The clinical goals for the shift include VSS/safety Over the shift, the patient did not make progress toward the following goals. Barriers to progression include sotalol initiation and titration. Recommendations to address these barriers include making changes to the treatment plan as needed. Problem: Pain - Adult Goal: Verbalizes/displays adequate comfort level or baseline comfort level Outcome: Progressing Flowsheets (Taken 01/29/2024201) Verbalizes/displays adequate comfort level or baseline comfort level: Encourage patient to monitor pain and request assistance Assess pain using appropriate pain scale Administer analgesics based on type and severity of pain and evaluate response Implement non-pharmacological measures as appropriate and evaluate response Consider cultural and social influences on pain and pain management Problem: Safety - Adult Goal: Free from fall injury Outcome: Progressing Flowsheets (Taken 01/29/2024201) Free from fall injury: Assess patient frequently for physical needs Identify cognitive and physical deficits and behaviors that affect risk of falls [facility] fall precautions as indicated by assessment Educate patient/family on patient safety, including physical limitations Instruct patient to call for assistance with activity based on assessment Modify environment to reduce risk of injury Problem: Discharge Planning Goal: Discharge to home or other facility with appropriate resources Outcome: Progressing Flowsheets (Taken 01/29/2024201) Discharge to home or other facility with appropriate resources: Identify barriers to discharge with patient and caregiver Arrange for needed discharge resources and transportation as appropriate Identify discharge learning needs (meds, wound care, etc) Problem: Chronic Conditions and Co-morbidities Goal: Patient's chronic conditions and co-morbidity symptoms are monitored and maintained or improved Outcome: Progressing Flowsheets (Taken 01/29/2024201) Care Plan - Patient's Chronic Conditions and Co-Morbidity Symptoms are Monitored and Maintained or Improved: Monitor and assess patient's chronic conditions and comorbid symptoms for stability, deterioration, or improvement Collaborate with multidisciplinary team to address chronic and comorbid conditions and prevent exacerbation or deterioration Normal [facility] BASIC METABOLIC PANELon 10-0 Anion gap [Moles/Vol] 11 mmol/L Normal 7-20 [facility] Comment on above: Performed By: #### L [id number] #### [facility] [address] [place] [address] Calcium [Mass/Vol] 7.3 mg/dL Low 8.6-10.3 [facility] Comment on above: Performed By: #### L [id number] #### [facility] ([facility]) [address] [place] [address] Chloride [Moles/Vol] 108 mmol/L High 98-107 [facility] Comment on above: Performed By: #### L [id number] #### [facility] ([facility]) [address] [place] [address] CO2 [Moles/Vol] 26 mmol/L Normal 21-31 [facility] Comment on above: Performed By: #### L [id number] #### [facility] ([facility]) [address] [place] [address] Creatinine [Mass/Vol] 1.38 mg/dL High 0.70-1.30 [facility] Comment on above: Performed By: #### L AB15 #### [facility] ([facility]) [address] [place] [address] GLOMERULAR FILTRATION RATE ML/MIN/1.73 SQ M.PREDICTED 55.0 mL/min/1.73m*2 Low >60.0 [facility] Comment on above: Result Comment: The [facility]???s estimated glomerular filtration rate (eGFR) will no [...] individuals. Performed By: #### L AB15 #### [facility] ([facility]) [address] [place] [address] Glucose [Mass/Vol] 95 mg/dL Normal 70-100 [facility] Comment on above: Performed By: #### L [id number] #### [facility] ([facility]) [address] [place] [address] Potassium [Moles/Vol] 3.9 mmol/L Normal 3.5-5.1 [facility] Comment on above: Performed By: #### L [id number] #### [facility] ([facility]) [address] [place] [address] Sodium [Moles/Vol] 141 mmol/L Normal 136-145 [facility] Comment on above: Performed By: #### L AB15 #### [facility] ([facility]) [address] [place] [address] Urea nitrogen [Mass/Vol] 31 mg/dL High 7-25 [facility] Comment on above: Performed By: #### L [id number] #### [facility] ([facility]) [address] [place] [address] UREA NITROGEN/CREATININE (MASS RATIO) IN SER/PLAS 22.5 Normal [facility] Comment on above: Performed By: #### L [id number] #### [facility] ([facility]) [address] [place] [address] MAGNESIUMon 01-29-2024 Magnesium [Mass/Vol] 1.9 mg/dL Normal 1.9-2.7 [facility] Comment on above: Performed By: #### L [id number] #### [facility] ([facility]) [address] [place] [address] 30on 01-28-2024 30 Daily Case Managemen t Update Multidisciplinary rounds have been completed. Barriers to Discharge: Pending clinical course and improvement in clinical condition. Plan for cardiac catheterization and echocardiogram today; pending results and recommendations per Cardiology. Discharge plan is home when medically ready. Diet: Dietary Orders (From admission, onward) Start Ordered 01/28/24 1050 Special Kitchen Request Once 01/28/24 1049 01/28/24 1050 Regular Diet Heart Healthy/HTN, CABG,Stroke, (2gNA, low fat, low cholesterol) Diet effective now Question Answer Comment Room Service? Yes Fat restriction: Heart Healthy/HTN, CABG,Stroke, (2gNA, low fat, low cholesterol) 01/28/24 1049 Physician Expected Discharge Date: 01/30/2024 Discharge Delays: PT Six Click Score: 24 OT Six Click Score: PT Recommendations: OT Recommendations: New Consults: Consult Orders (From admission, onward) Start Ordered 01/27/241921 Inpatient consult to Cardiology Once Specialty: Cardiology Provider: (Not yet assigned) Question Answer Comment [facility] CARDIOLOGY TEAM Reason for Consult? unstable angina Level of Consultation Consultation and Management 01/27/24 192 Normal [facility] 30 The patient is Moder ately Stable - Low risk of patient condition declining or worsening The patient's goals for the shift include The clinical goals for the shift include VSS, safety [facility] 30 The patient is Moder ately Stable - Low risk of patient condition declining or worsening The patient's goals for the shift include The clinical goals for the shift include VSS, safety [facility] BASIC METABOLIC PANELon 10-0 Anion gap [Moles/Vol] 11 mmol/L Normal 7-20 [facility] Comment on above: Performed By: #### L [id number] ####[facility] ([facility]ER)[address] [place] [address] Calcium [Mass/Vol] 7.3 mg/dL Low 8.6-10.3 [facility] Comment on above: Performed By: #### L [id number] ####[facility] ([facility]ER)[address] [place] [address] Chloride [Moles/Vol] 108 mmol/L High 98-107 [facility] Comment on above: Performed By: #### L [id number] ####[facility] ([facility]ER)[address] [place] [address] CO2 [Moles/Vol] 25 mmol/L Normal 21- [facility] Comment on above: Performed By: #### L [id number] ####[facility] ([facility]ER)[address] [place] [address] Creatinine [Mass/Vol] 1.35 mg/dL High 0.70-1.30 [facility] Comment on above: Performed By: #### L [id number] ####[facility] ([facility])[address] [place] [address] GLOMERULAR FILTRATION RATE ML/MIN/1.73 SQ M.PREDICTED 56.5 mL/min/1.73m*2 Low >60.0 [facility] Comment on above: Result Comment: [facility]???s estimated glomerular filtration rate (eGFR) will no [...] of individuals. Performed By: #### L [id number] ####[facility] ([facility])[address] [place] [address] Glucose [Mass/Vol] 87 mg/dL Normal 70-100 [facility] Comment on above: Performed By: #### L [id number] ####[facility] ([facility])[address] [place] [address] Potassium [Moles/Vol] 4.1 mmol/L Normal 3.5-5.1 [facility] Comment on above: Performed By: #### L [id number] ####[facility] ([facility])[address] [place] [address] Sodium [Moles/Vol] 140 mmol/L Normal 136-145 [facility] Comment on above: Performed By: #### L [id number] ####[facility] ([facility])[address] [facility] [place] [address] Urea nitrogen [Mass/Vol] 28 mg/dL High 7-25 [facility] Comment on above: Performed By: #### L [id number] ####[facility] ([facility])[address] [place] [address] UREA NITROGEN/CREATININE (MASS RATIO) IN SER/PLAS 20.7 Normal [facility] Comment on above: Performed By: #### L [id number] ####[facility] ([facility])[address] [place] [address] CBCon 01-28-2024 Erythrocyte distribution width (RBC) [Ratio] 14.8 % Normal 11.5-15.0 [facility] Comment on above: Performed By: #### L [id number] ####[facility] ([facility])[address] [place] [address] ERYTHROCYTE MEAN CORPUSCULAR HEMOGLOBIN CONCENTRATION (G/DL) BY AUTOMATED 31.6 g/dL Low 32.0-35.0 [facility] Comment on above: Performed By: #### L [id number] ####[facility] ([facility])[address] [place] [address] Hematocrit (Bld) [Volume fraction] 47.4 % Normal 39.0-55.0 [facility] Comment on above: Performed By: #### L [id number] ####[facility] ([facility])[address] [place] [address] Hemoglobin (Bld) [Mass/Vol] 15.0 g/dL Normal 13.0-17.0 [facility] Comment on above: Performed By: #### L [id number] ####[facility] ([facility])[address] [place] [address] MCH (RBC) [Entitic mass] 27.2 pg Normal 27.0-33.0 [facility] Comment on above: Performed By: #### L [id number] ####[facility] ([facility])[address] [place] [address] MCV (RBC) [Entitic vol] 85.9 fL Normal 82.0-98.0 [facility] Comment on above: Performed By: #### L [id number] ####[facility] ([facility])[address] [place] [address] PLATELETS (10*3/UL) IN BLOOD AUTOMATED COUNT 218 10*3/uL Normal 150-400 [facility] Comment on above: Performed By: #### L [id number] ####[facility] ([facility])[address] [place] [address] RBC (Bld) [#/Vol] 5.52 10*6/uL Normal 4.20-5.70 [facility] Comment on above: Performed By: #### L [id number] ####[facility] ([facility])[address] [place] [address] WBC (Bld) [#/Vol] 9.98 10*3/uL Normal 4.00-10.60 [facility] Comment on above: Performed By: #### L [id number] ####[facility] ([facility])[address] [place] [address] CONSULTon 01-28-2024 CONSULT ------- Attestation signed by Rashid Hendricks MD at 01/28/2024 4:46 PM (Updated) I personally saw and examined the patient on the same date of service as resident/fellow Dr Reece. I discussed the findings and therapeutic plan with the resident/fellow Dr Reece. I agree with the documentation, except for any edits/updates below. Teaching Physician's Revisions: None Patient was transferred from [facility] because of chest pain and atrial fibrillation with rapid ventricular rate. The patient had prior history of A-fib/flutter, s/p many ablations and status post Watchman device. Also he has a permanent pacemaker for sick sinus syndrome. He had history of CAD and prior angioplasty and recent catheter cardiac catheterization in August which showed patent stent and patent main artery is but a stenosis of second diagonal branch which is a small artery and medical treatment was recommended. Patient states that he continues to have the same chest pain every time he does anything and also when his heart rate is elevated and sometimes it wakes him up from sleep. He had side effects to different medications including Imdur, Ranexa, and beta-blockers. Also he had low blood pressure on some of them. He is currently in atrial fibrillation with rapid ventricular rate. Blood pressure has been in the 110-120. EKG showed atrial fibrillation and I calculated the QTc interval myself and it was normal. I discussed him with Dr. Joshi who knows him very well and he recommended to start him on sotalol which was tried before and kept him in sinus rhythm but it was stopped due to chest pain which is clearly not related to the sotalol therefore we will restart him on sotalol 120 mg twice daily and we watch his EKG for 6 doses Regarding to chest pain it is not typical, his troponin is negative and EKG did not show acute changes. If he continues to have chest pain after he is back in sinus rhythm we will consider to add anti-ischemic drugs particularly Ranexa Rashid Hendricks MD, [facility] Cardiology Consult Note Reason for Consult: Atrial Flutter HPI: Yoli Antunez Jr. is a 68 y.o. male with PMHx of A-fib s/p watchman and 3 ablation, hypertension, hypothyroidism, CKD Stage 3, POTS, CAD s/p PCI, Sick Sinus Syndrome s/p PPM, and aneurysm of ascending aorta presents as a direct admission from [facility] with a chief complaint of chest pain. Pt reports he has had chest pain for last couple of years that has worsened over the last couple of months. Pt has chest pain and dyspnea on exertion. Pt's last cath was in August 2023, it showed moderate to severe disease of a small second diagonal branch of the left anterior descending coronary artery; mild disease of the left anterior descending coronary artery, and subtotally occluded mid to distal, small posterolateral branch of the right coronary artery. The recommendations from the cath were to consider alternate etiologies for the patient's symptomatology namely pulmonary, gastrointestinal and/or musculoskeletal; aggressive cardiovascular risk factor modification, and optimal medical therapy for coronary artery disease should include aspirin, high intensity statin therapy, a beta-gonzález +/- an angiotensin-converting enzyme inhibitor. Pt at home has just been taking aspirin and not his statin. Pt has low BP at baseline so beta-gonzález and ACEi not able to be initated. Pt on arrival in Aflutter with RVR and he converted to sinus rhythm for a couple hoursbefore converting back to Aflutter with RVR. Pt this morning during my exam is in Atrial Flutter with RVR and is complaining of chest pain. Cardiology ROS: Review of Systems Constitutional: Negative for chills and fever. Eyes: Negative for blurred vision and double vision. Cardiovascular: Positive for chest pain, dyspnea on exertion and palpitations. Negative for orthopnea and syncope. Musculoskeletal: Positive for back pain. Gastrointestinal: Negative for abdominal pain and diarrhea. Psychiatric/Behavioral: Negative for altered mental status and memory loss. Past Medical History He has a past [...] His smoking use included cigarettes and cigars. H (more content not included)... Normal [facility] MAGNESIUMon 01-28-2024 Magnesium [Mass/Vol] 1.9 mg/dL Normal 1.9-2.7 [facility] Comment on above: Performed By: #### L [id number] #### [facility] ([facility]) [address] [place] [address] TROPONIN Ion 01-28-2024 Troponin I.cardiac [Mass/Vol] 0.00 ng/mL Normal 0.00-0.04 [facility] Comment on above: Performed By: #### L [id number] #### [facility] ([facility]) [address] [place] [address] Troponin I.cardiac [Mass/Vol] 0.00 ng/mL Normal 0.00-0.04 [facility] Comment on above: Performed By: #### L [id number] #### [facility] ([facility]) [address] [place] [address] Troponin I.cardiac [Mass/Vol] 0.00 ng/mL Normal 0.00-0.04 [facility] Comment on above: Performed By: #### L [id number] ####[facility] ([facility])[address] [place] [address] TSH3 REFLEX TO FT4on 024 THYROTROPIN (MIU/L) IN SER/PLAS BY DETECTION LIMIT <= 0.05 MIU/L 1.63 mIU/L Normal 0.34-5.60 [facility] Comment on above: Performed By: #### L [id number] ####[facility] ([facility])[address] [place] [address] B-TYPE NATRIURETIC PEPTIDEon 01-27-2024 Natriuretic peptide B (Bld) [Mass/Vol] 243 pg/mL High 0-100 [facility] Comment on above: Performed By: #### L [id number] ####[facility] ([facility])[address] [place] [address] CBC WITH AUTO DIFFERENTIALon 01-27-2024 Basophils (Bld) [#/Vol] 0.05 10*3/uL Normal 0.00-0.20 [facility] Comment on above: Performed By: #### L [id number] ####[facility] ([facility])[address] [place] [address] Basophils/100 WBC (Bld) 0.5 % Normal 0.0-1.0 [facility] Comment on above: Performed By: #### L [id number] ####[facility] ([facility])[address] [place] [address] Eosinophils (Bld) [#/Vol] 0.18 10*3/uL Normal 0.00-0.50 [facility] Comment on above: Performed By: #### L [id number] ####[facility] ([facility])[address] [place] [address] Eosinophils/100 WBC (Bld) 1.8 % Normal 0.0-6.0 [facility] Comment on above: Performed By: #### L [id number] ####[facility] ([facility])[address] [place] [address] Erythrocyte distribution width (RBC) [Ratio] 14.6 % Normal 11.5-15.0 [facility] Comment on above: Performed By: #### L [id number] ####[facility] ([facility])[address] [place] [address] ERYTHROCYTE MEAN CORPUSCULAR HEMOGLOBIN CONCENTRATION (G/DL) BY AUTOMATED 33.1 g/dL Normal 32.0-35.0 [facility] Comment on above: Performed By: #### L [id number] ####[facility] ([facility])[address] [place] [address] Hematocrit (Bld) [Volume fraction] 45.0 % Normal 39.0-55.0 [facility] Comment on above: Performed By: #### L [id number] ####[facility] ([facility])[address] [place] [address] Hemoglobin (Bld) [Mass/Vol] 14.9 g/dL Normal 13.0-17.0 [facility] Comment on above: Performed By: #### L [id number] ####[facility] ([facility])[address] [place] [address] Immature granulocytes (Bld) [#/Vol] 0.08 10*3/uL Normal 0.00-0.20 [facility] Comment on above: Performed By: #### L [id number] ####[facility] ([facility])[address] [place] [address] Immature granulocytes/100 WBC (Bld) 0.8 % Normal 0.0-1.0 [facility] Comment on above: Performed By: #### L [id number] ####[facility] [place] [address] Lymphocytes (Bld) [#/Vol] 1.92 10*3/uL Normal 1.20-4.00 [facility] Comment on above: Performed By: #### L [id number] ####[facility] [place] [address] Lymphocytes/100 WBC (Bld) 18.7 % Low 20.0-45.0 [facility] Comment on above: Performed By: #### L [id number] ####[facility] [place] [address] MCH (RBC) [Entitic mass] 28.2 pg Normal 27.0-33.0 [facility] Comment on above: Performed By: #### L [id number] ####[facility] [place] [address] MCV (RBC) [Entitic vol] 85.1 fL Normal 82.0-98.0 [facility] Comment on above: Performed By: #### L [id number] ####[facility] [place] [address] Monocytes (Bld) [#/Vol] 0.95 10*3/uL Normal 0.10-1.00 [facility] Comment on above: Performed By: #### L [id number] ####[facility] [place] [address] Monocytes/100 WBC (Bld) 9.3 % Normal 5.0-12.0 [facility] Comment on above: Performed By: #### L [id number] ####[facility] ([facility])[address] [place] [address] Neutrophils (Bld) [#/Vol] 7.09 10*3/uL Normal 1.60-7.60 [facility] Comment on above: Performed By: #### L [id number] ####[facility] ([facility])[address] [place] [address] Neutrophils/100 WBC (Bld) 68.9 % Normal 40.0-72.0 [facility] Comment on above: Performed By: #### L [id number] ####[facility] ([facility])[address] [address] NRBC (PER 100 WBCS) BY AUTOMATED COUNT 0.0 % Normal 0 [facility] Comment on above: Performed By: #### L [id number] ####[facility] ([facility])[address] [place] [address] PLATELETS (10*3/UL) IN BLOOD AUTOMATED COUNT 233 10*3/uL Normal 150-400 [facility] Comment on above: Performed By: #### L [id number] ####[facility] ([facility])[address] [place] [address] RBC (Bld) [#/Vol] 5.29 10*6/uL Normal 4.20-5.70 [facility] Comment on above: Performed By: #### L [id number] ####[facility] ([facility])[address] [address] WBC (Bld) [#/Vol] 10.27 10*3/uL Normal 4.00-10.60 [facility] Comment on above: Performed By: #### L [id number] ####[facility] [place] [address] COMPREHENSIVE METABOLIC PANE Julian 01-27-2024 Albumin [Mass/Vol] 4.0 g/dL Normal 3.5-5.7 [facility] Comment on above: Performed By: #### L [id number] #### [facility] [address] [place] [address] ALP [Catalytic activity/Vol] 57 U/L Normal 34-104 [facility] Comment on above: Performed By: #### L [id number] #### [facility] ([facility]) [address] [place] [address] ALT [Catalytic activity/Vol] 25 U/L Normal 7-52 [facility] Comment on above: Performed By: #### L [id number] #### [facility] ([facility]) [address] [place] [address] Anion gap [Moles/Vol] 12 mmol/L Normal 7-20 [facility] Comment on above: Performed By: #### L [id number] #### [facility] ([facility]) [address] [place] [address] AST [Catalytic activity/Vol] 16 U/L Normal 13-39 [facility] Comment on above: Performed By: #### L [id number] #### [facility] ([facility]) [address] [place] [address] Bilirubin [Mass/Vol] 0.6 mg/dL Normal 0.3-1.0 [facility] Comment on above: Performed By: #### L [id number] #### [facility] ([facility]) [address] [place] [address] Calcium [Mass/Vol] 7.3 mg/dL Low 8.6-10.3 [facility] Comment on above: Performed By: #### L [id number] #### [facility] ([facility]) [address] [place] [address] Chloride [Moles/Vol] 106 mmol/L Normal 98-107 [facility] Comment on above: Performed By: #### L [id number] #### [facility] ([facility]) [address] [place] [address] CO2 [Moles/Vol] 24 mmol/L Normal 21-31 [facility] Comment on above: Performed By: #### L [id number] #### [facility] ([facility]) [address] [place] [address] Creatinine [Mass/Vol] 1.28 mg/dL Normal 0.70-1.30 [facility] Comment on above: Performed By: #### L [id number] #### [facility] ([facility]) [address] [place] [address] GLOMERULAR FILTRATION RATE ML/MIN/1.73 SQ M.PREDICTED 60.2 mL/min/1.73m*2 Normal >60.0 [facility] Comment on above: Result Comment: [facility]???s estimated glomerular filtration rate (eGFR) will no [...] individuals. Performed By: #### L [id number] #### [facility] ([facility]) [address] [place] [address] Glucose [Mass/Vol] 81 mg/dL Normal 70-100 [facility] Comment on above: Performed By: #### L [id number] #### [facility] ([facility]) [address] [place] [address] Potassium [Moles/Vol] 3.8 mmol/L Normal 3.5-5.1 [facility] Comment on above: Performed By: #### L [id number] #### [facility] ([facility]) [address] [place] [address] Protein [Mass/Vol] 6.7 g/dL Normal 6.0-8.3 [facility] Comment on above: Performed By: #### L [id number] #### [facility] ([facility]) [address] [place] [address] Sodium [Moles/Vol] 138 mmol/L Normal 136-145 [facility] Comment on above: Performed By: #### L [id number] #### [facility] ([facility]) [address] [place] [address] Urea nitrogen [Mass/Vol] 29 mg/dL High 7-25 [facility] Comment on above: Performed By: #### L [id number] #### [facility] ([facility]) [address] [place] [address] UREA NITROGEN/CREATININE (MASS RATIO) IN SER/PLAS 22.7 Normal [facility] Comment on above: Performed By: #### L [id number] #### [facility] ([facility]) [address] [place] [address] MAGNESIUMon 01-27-2024 Magnesium [Mass/Vol] 1.9 mg/dL Normal 1.9-2.7 [facility] Comment on above: Performed By: #### L [id number] ####[facility] ([facility])[address] [place] [address] PHOSPHORUSon 01-27-2024 Magnesium [Mass/Vol] 5.6 mg/dL High 2.5-5.0 [facility] Comment on above: Performed By: #### L [id number] #### [facility] ([facility]) [address] [place] [address] PROTIME-INRon 01-27-2024 INR IN PPP BY COAGULATION ASSAY 1.12 High 0.90-1.10 [facility] Comment on above: Result Comment: ACCC P [...] RANGE. CHEST 1995;108:[id number]. Performed By: #### L [id number] #### [facility] ([facility]) [address] [place] [address] PROTHROMBIN TIME (PT) IN PPP BY COAGULATION ASSAY 14.4 Seconds Normal 12.3-14.8 [facility] Comment on above: Performed By: #### L [id number] #### [facility] ([facility]) [address] [place] [address] TROPONIN Ion 01-27-2024 Troponin I.cardiac [Mass/Vol] 0.00 ng/mL Normal 0.00-0.04 [facility] Comment on above: Performed By: #### L [id number] #### [facility] ([facility]) [address] [place] [address] Office Visiton 12-25-2023 Follow-up visit [id number] Fr freda Antunez Jr. 1955 [facility] Provider Department Center 12/25/2023 JEFF QUEEN LEX Wright Family History Problem Relation Age of Onset Hypertension Mother Cancer Mother Stroke Mother Hypertension Father Aortic aneurysm Father Cancer Father Aortic aneurysm Paternal Grandfather Sudden Neg Hx Family Status - Relation Status Age at Mother Father Paternal Grandfather Neg Hx Level of Service:19277 HI OFFICE/OUTPATIENT ESTABLISHED MOD MDM 30 MIN Normal [facility] 36on 10-22-2023 36 Patient called and s tates that he is having a lot of dizzy spells since starting the Ranexa you prescribed. Patient would like to know if he can stop this and if their would be something else you would like to prescribe. Please advise Normal [facility] Telephoneon 10-22-2023 Telephone [id number] Fr freda Antunez Jr. 1955 [facility] Provider Department Center 10/22/2023 SHUKRI READ LEX Wright Family History Problem Relation Age of Onset Hypertension Mother Cancer Mother Stroke Mother Hypertension Father Aortic aneurysm Father Cancer Father Aortic aneurysm Paternal Grandfather Sudden Neg Hx Family Status - Relation Status Age at Mother Father Paternal Grandfather Neg Hx Normal [facility] Office Visiton 10-10-2023 Follow-up visit [id number] Fr freda Antunez Jr. 1955 M Date Provider Department Center 10/10/2023 [facility] Family History Problem Relation Age of Onset Hypertension Mother Cancer Mother Stroke Mother Hypertension Father Aortic aneurysm Father Cancer Father Aortic aneurysm Paternal Grandfather Sudden Neg Hx Family Status - Relation Status Age at Mother Father Paternal Grandfather Neg Hx Level of Service:61594 HI OFFICE/OUTPATIENT ESTABLISHED LOW MDM 20 MIN Normal [facility] Blood Urea Nitrogenon 2023 Urea nitrogen [Mass/Vol] 27 mg/dL High 7-25 [facility] Comment on above: Order Comment: STAT FOR ct Performed By: #### C REAT, BUN #### [address] abdomen pelvis w conon CT abdomen pelvis w [facility] [place] [address] [place] [address] CT Scan Report Signed Patient: Yoli Antunez Jr MR#: [id number] : 1955 Acct:[id number] Age/Sex: 68 / M ADM Date: 06/10/23 Loc: CT Room: Type: [facility] Attending Dr: Charlene Soria MD Copies to: [...] Aide Banks M.D.06/10/2023 4:04 PM Dictation Location: [facility]- Transcribed By: [facility] 06/10/23 [id number] Dictated By: Aide Banks MD 06/10/23 6399 Signed By: 06/10/23 160 Normal [facility] Creatinineon 06-10-2023 Creatinine [Mass/Vol] 1.28 mg/dL Normal 0.70-1.30 [facility] Comment on above: Order Comment: STAT FOR ct Performed By: #### C REAT, BUN #### [address] GFR/1.73 sq M.predicted MDRD (S/P/Bld) [Vol rate/Area] mL/min/{1.73_m2} Normal [facility] Comment on above: Order Comment: STAT FOR ct Result Comment: PERF ORMED BY: [facility] [address] [place] [address] PATHOLOGIST IOS SOFTWARE ENGINEER ABDOUL ORR M.D. Performed By: #### C REAT, BUN #### [facility] [address] Creatinine [Mass/volume] in Serum or PlasmaOrdered By: [facility] on 06-10-2023 Creatinine [Mass/Vol] 1.28 mg/dL 0.70-1.30 [facility] No Panel InformationOrdered By: ad [facility] on 06-10-2023 Estimated GFR (CKD-EPI) > 60.0 mL/Min [facility] Creatinine Clearance (Chem N/A [facility] Urea nitrogen [Mass/volume] in Serum or PlasmaOrdered By: Imad Asa on 06-10-2023 Urea nitrogen [Mass/Vol] 27 mg/dL 7 [facility] ALL KAPPA/LAMBDA FREE SERUMo n 06-01-2023 [facility] KAPPA LC FREE SER-MCNC 30.6 mg/L High 3.3 - 19.4 mg/L [facility] Comment on above: Rarely, increased se rum free light chains levels may not be detected or accurately quantified due to prozone phenomenon or in high viscosity samples using this immunoturbidimetric assay. Correlation with other laboratory results and clinical findings is recommended. The [place] Free Light Chain was performed using the Binding Site Optilite immunoturbidimetric method. Result obtained with different assay methods or kits cannot be used interchangeably. [facility] KAPPA LC/LAMBDA SER 1.72 High 0.26 - 1.65 [facility] LAMBDA LC FREE SERPL-MCNC 17.8 mg/L 5.7 - 26.3 mg/L [facility] Comment on above: Rarely, increased se [...] Interpretation and review of laboratory results Abnormal [facility] Specimen Type: BLOOD SPECIMEN Ordering Facility: [facility] Address: [address] [place] [address] Original Ordering Provider: [facility]St[facility] KAPPA/BETHEA,FREE,SERon 2023 Immunoglobulin light chains.kappa.free (S) [Mass/Vol] 30.6 mg/L High 3.3-19.4 [facility] Comment on above: Order Comment: Speci men Type: BLOOD SPECIMENOrdering Facility: [facility] Address: [address] [place] [address] Result Comment: Rare ly, increased serum free light chains levels may not be detected or accurately quantified due to prozone phenomenon or in high viscosity samples using this immunoturbidimetric assay. Correlation with other laboratory results and clinical findings is recommended. The [place] Free Light Chain was performed using the Binding Site Optilite immunoturbidimetric method. Result obtained with different assay methods or kits cannot be used interchangeably. Performed By: #### K LFRS ####[facility] LABIA [id number] [place] [address] [place] Immunoglobulin light chains.kappa/Immunog lobulin light chains.lambda (S) [Mass ratio] 1.72 High 0.26-1.65 [facility] Comment on above: Order Comment: Speci men Type: BLOOD SPECIMENOrdering Facility: [facility] Address: [address] [place] [address] Performed By: #### K LFRS ####[facility] LABIA [id number] [place] [address] [place] Immunoglobulin light chains.lambda.free [Mass/Vol] 17.8 mg/L Normal 5.7-26.3 [facility] Comment on above: Order Comment: Speci men Type: BLOOD SPECIMENOrdering Facility: [facility] Address: [address] [place] [address] Result Comment: Rare ly, increased serum free [...] used interchangeably. Performed By: #### K LFRS ####[facility] LABCLIA [id number] [facility] W[address] [id number] [facility] 04-16-2023 L ------- Specimen: [id number] Received: 04/16/23 Status: NIKHIL Bautista Num: [id number] Spec Type: Surgical Subm Dr: Charlene Soria MD Tissues: A Colon Biopsy (RANDOM COLON BX) B Colon Biopsy (ASC POLYP) Procedures: HE/Ragini, Gross/Micro L4/2 Age/ Patient Sex Location Account Attending Physician AudmariimisaelYoli schuler 67/M [id number] Charlene Soria MD SPEC NUM: [id number] RECD: 04/16/23 [facility] NUM: [id number] RENAN: 04/16/23 DR: Charlene Soria MD ENTERED: 04/16/[address] [facility] [address]: SPEC TYPE: Surgical DEPT: S ORDERED: [...] submitted in one cassette labeled B1. Specimen: [id number] Received: 04/16/23 Status: SOUJacy Req Num: [id number] Spec Type: Surgical Subm Dr: Charlene Soria MD Tissues: A Colon Biopsy (RANDOM COLON BX) B Colon Biopsy (ASC POLYP) Procedures: Herbie BUITRAGO/Micro L4/2 Patient: Yoli Antunez Jr [id number] (Continued) Specimen: [id number] Received: 04/16/23 (Continued) Signed (signature on file) Dony Duenas MD 04/17/232228 Specimen: [id number] Received: 04/16/23 Status: NIKHIL Bautista Num: [id number] Spec Type: Surgical Subm Dr: Charlene Soria MD Tissues: A Colon Biopsy (RANDOM COLON BX) B Colon Biopsy (ASC POLYP) Procedures: Herbie BUITRAGO/Micro L4/2 Patient: Yoli Antunez Jr [id number] (Continued) Specimen: [id number] Received: 04/16/23 (Continued) Microscopic Description A. Two H E slides reviewed. The microscopic examination confirms the diagnosis. B. Two H E slides reviewed. The microscopic examination confirms the diagnosis. CPT Codes 53248d6 Specimen: [id number] Received: 04/16/23 Status: NIKHIL Bautista Num: [id number] Spec Type: Surgical Subm Dr: Charlene Soria MD Tissues: A Colon Biopsy (RANDOM COLON BX) B Colon Biopsy (ASC POLYP) Procedures: HE/4, Gross/Micro L4/2 Patient: Yoli Antunez Richelle Del Toro [id number] (Continued) Signed (signature on file) Dony Duenas MD 04/17/239 [facility] Leydi 02-05-2023 CNPN Telephone (NIQ) YOLI ANTUNEZ ([id number]) 1955 M Date Time Provider Department 02/05/23 MARÍA PEARL During your visit today, we recorded the following information about you: Aydee Hunter 02/05/2023 12:07 PM Signed Scanned in results from [facility] for review Shivani Ambriz RN 02/05/2023 12:49 PM Signed Copper: YAMILA Carnes, RN Shivani Ambriz RN 02/05/2023 1:01 PM Signed María Pearl APRN.RESTAURANT GENERAL MANAGER You 7 minutes ago (12:52 PM) This is a normal result. [place] YAMILA Carnes, RN Allergies As of Date: 02/05/2023 Noted Allergy Reaction PENICILLINS 09/12/2000 16 - Unknown TIKOSYN (DOFETILIDE) 07/26/2022 14 - Other: See Comments Comments: Aphasia, dizzy, muscle cramps VANCOMYCIN 07/26/2022 10 - Anaphylaxis Date Reviewed: 01/24/2023 Reviewed by: Peggy Bravo RN - Fully Assessed Reason for Visit: Results [95] Cmt: [facility] Prescriptions as of 02/05/2023 - benazepril (LOTENSIN) [...] Status:Closed by SHIVANI AMBRIZ on 02/05/[address] [facility] [address] ABDOMEN PELVIS W IV CONTR Adalgisa 02-01-2023 CT ABDOMEN PELVIS W IV CONTRAST Interpreted By: Miguel Conrad, STUDY: CT ABDOMEN PELVIS W IV CONTRAST; 02/01/2023 2:11 pm INDICATION: Signs/Symptoms:worsening LLQ abdominal pain and watery diarrhea. COMPARISON: None. ACCESSION NUMBER(S): [id number] ORDERING CLINICIAN: YOSSI CHEN TECHNIQUE: CT of [...] chronic granulomatous infection. MACRO: None Signed by: Miguel Conrad 02/01/2023 2:52 PM Dictation workstation: [id number] [facility] CT Abdomen and Pelvis W cont rast Candace 02-01-2023 1. No acute intra-ab dominal or pelvic pathology. 2. Uncomplicated colonic diverticulosis. 3. Trace hiatal hernia. 4. Scattered splenic calcific granulomas likely sequelae of chronic granulomatous infection. MACRO: None Signed by: Miguel Conrad 02/01/2023 2:52 PM Dictation workstation: [id number] MMODAL Interpreted By: Miguel Palmer, STUDY: CT ABDOMEN PELVIS W IV CONTRAST; 02/01/2023 2:11 pm INDICATION: Signs/Symptoms:worsening LLQ abdominal pain and watery diarrhea. COMPARISON: None. ACCESSION NUMBER(S): [id number] ORDERING CLINICIAN: YOSSI CHEN TECHNIQUE: CT of [...] small fat containing inguinal hernias. [facility] MMODAL Miguel Conrad MD - 02/01/2023 Interpreted By: Miguel Conrad, STUDY: CT ABDOMEN PELVIS W IV CONTRAST; 02/01/2023 2:11 pm INDICATION: Signs/Symptoms:worsening LLQ abdominal pain and watery diarrhea. COMPARISON: None. ACCESSION NUMBER(S): [id number] ORDERING CLINICIAN: YOSSI CHEN TECHNIQUE: CT of [...] chronic granulomatous infection. MACRO: None Signed by: Miguel Conrad 02/01/2023 2:52 PM Dictation workstation: [id number] [facility] Work Phone: Radiology Study observation (narrative) [facility] Work Phone: CT Abdomen and Pelvis W cont rast IVOrdered By: Miguel Conrad on 02-01-2023 [facility] Work Phone: Gastrointestinal pathogens i dentifiedon [...] Rotavirus RNA Not Detected Normal Not Detected [facility] Comment on above: Performed By: #### 7 9390-1 #### RENÉ Hinojosa ([id number]) [facility] ([facility]) [id number] [place] [address] Basic metabolic 2000 panelon 01-31-2023 Anion gap [Moles/Vol] 12 mmol/L Normal 10- [facility] Comment on above: Performed By: #### 2 4321-2 #### MAYELIN Hill ([id number]) [facility] ([facility]) [address] [place] [address]05 Calcium [Mass/Vol] 7.2 mg/dL Low 8.6-10.3 [facility] Comment on above: Performed By: #### 2 4321-2 #### MAYELIN Hill ([id number]) [facility] ([facility]) [address] [place] [address] 29722 Chloride [Moles/Vol] 106 mmol/L Normal 98-107 [facility] Comment on above: Performed By: #### 2 4321-2 #### MAYELIN Hill ([id number]) [facility] ([facility]) [address] [place] [address] 61011 CO2 [Moles/Vol] 28 mmol/L Normal 21-32 [facility] Comment on above: Performed By: #### 2 4321-2 #### MAYELIN Hill ([id number]) [facility] ([facility]) [address] [place] [address] 80334 Creatinine [Mass/Vol] 1.65 mg/dL High 0.50-1.30 [facility] Comment on above: Performed By: #### 2 4321-2 #### MAYELIN Hill ([id number]) [facility] ([facility]) [address] [place] [address] 89277 GFR/1.73 sq M.predicted MDRD (S/P/Bld) [Vol rate/Area] 45 mL/min/1.73m*2 Low >60 [facility] Comment on above: Result Comment: Calc ulations of estimated GFR are performed using the 2020 CKD-EPI Study Refit equation without the race variable for the IDMS-Traceable creatinine methods. https://jasn.asnjournals.org/content/early/ASN.0380016 988 Performed By: #### 2 4321-2 #### MAYELIN Hill ([id number]) [facility] ([facility]) [address] [place] [address] 16025 Glucose [Mass/Vol] 83 mg/dL Normal 74-99 [facility] Comment on above: Performed By: #### 2 4321-2 #### MAYELIN Hill ([id number]) [facility] ([facility]) [address] [place] [address] 70889 Potassium [Moles/Vol] 4.3 mmol/L Normal 3.5-5.3 [facility] Comment on above: Performed By: #### 2 4321-2 #### MAYELIN Hill ([id number]) [facility] ([facility]) [address] [place] [address] 77488 Sodium [Moles/Vol] 142 mmol/L Normal 136-145 [facility] Comment on above: Performed By: #### 2 4321-2 #### MAYELIN Hill ([id number]) [facility] ([facility]) [address] [place] [address] 81052 Urea nitrogen [Mass/Vol] 25 mg/dL High 6-23 [facility] Comment on above: Performed By: #### 2 4321-2 #### MAYELIN Hill ([id number]) [facility] ([facility]) [address] [place] [address] Leydi 01-30-2023 EDUARDO Telephone (NIQ) MARCELLO ANTUNEZDERICK ([id number]) 1955 M Date Time Provider Department 01/30/23 MARÍA PEARL During your visit today, we recorded the following information about you: Aydee Hunter 01/30/2023 11:59 AM Signed Scanned in lab from [facility] for review Paul Burns RN 01/30/2023 1:53 PM Signed YAMILA Cage, RN, BA Paul Burns RN 01/30/2023 4:11 PM Signed María Pearl APRN.RESTAURANT GENERAL MANAGER You 2 hours ago (1:58 PM) I [...] Encounter Status:Closed by PAUL BURNS on 01/30/23 [facility] Leydi 01-28-2023 EDUARDO Telephone (NIQ) YOLI ANTUNEZ ([id number]) 1955 M Date Time Provider Department 01/28/23 MARÍA PEARL During your visit today, we recorded the following information about you: ElsaAydee 01/28/2023 9:37 AM Signed Scanned in results from [facility] for review Paul Burns RN 01/28/2023 9:58 AM Signed YAMILA Cage, RN, BA Paul Burns RN 01/28/2023 10:49 AM Signed María Pearl APRN.RESTAURANT GENERAL MANAGER You 15 minutes ago (10:27 AM) Thank [...] Reason for Visit: Results [95] Cmt: [facility] Prescriptions as of 01/28/2023 - benazepril (LOTENSIN) [...] Encounter Status:Closed by PAUL BURNS on 01/28/23 [facility] CNOVon 01-24-2023 CNOV Office Visit (SYNCMN ) YOLI ANTUNEZ ([id number]) 1955 Date Time Provider Department 01/24/23 1:45 PM SYNCOPE OPD NURSE SYNCMN During your visit today, we recorded the following information about you: Peggy Bravo RN 01/24/2023 3:23 PM Signed UNIVERSAL PROTOCOL / SAFETY CHECKLIST Procedure to be performed: [place] for Syncope and Autonomic Disorders: TILT Sign [...] [R55] Orthostatic dizziness [R42] Order(s):SALINE LOCK DISCONTINUE [9491260] Order #: [id number]: 1 INTERMITTENT PERIPHERAL DEVICE (OR,VA) [9697995] Order #: [id number]: 1 Prescriptions as of 01/24/2023 - benazepril [...] Status:Closed by PEGGY BRAVO on 01/24/23 Normal [facility] CNPNon 01-24-2023 CNPN Telephone (NIQ) YOLI ANTUNEZ ([id number]) 1955 M Date Time Provider Department 01/24/23 MARÍA PEARL During your visit today, we recorded the following information about you: Aydee Hunter 01/24/2023 2:27 PM Signed Scanned in medical records from [facility] for review Paul Burns RN 01/24/2023 4:54 PM Signed Awaiting other lab results. Will send MCM once all results are back. María Pearl APRN.RESTAURANT GENERAL MANAGER You 2 hours ago (2:47 PM) Normal Vitamin B12. YAMILA Vivar, RN, BA Allergies As of Date: 01/24/2023 Noted Allergy Reaction PENICILLINS 09/12/2000 16 - Unknown TIKOSYN (DOFETILIDE) 07/26/2022 14 - Other: See Comments Comments: Aphasia, dizzy, muscle cramps VANCOMYCIN 07/26/2022 10 - Anaphylaxis Date Reviewed: 01/24/2023 Reviewed by: Peggy Bravo, RN - Fully Assessed Reason for Visit: Received Outside Medical Records [2516] Cmt: [facility] Prescriptions as of 02/04/2023 - aspirin, enteric [...] Encounter Status:Closed by PAUL BURNS on 02/04/23 [facility] CNOVcaleb 01-23-2023 CNOV Office Visit (NENMMN ) YOLI ANTUNEZ ([id number]) 1955 M Date Time Provider Department 01/23/23 8:00 AM MAR[facility] PEARL NEDCMN During your visit today, we recorded the following information about you: Pulse Respiration Blood pressure Weight 70/minute 18/minute 114/78 112.5 kg Height 1.981 m HomeroKristen ferraroDAVID 01/23/2023 10:15 AM Signed Answers submitted by [...] this focusing problem? 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 The lightheadedness and dizziness does NOT [...] with t (more content not included)... Normal [facility] CNOVon 12-31-2022 CNOV Office Visit (NHMNS2 ) YOLI ANTUNEZ ([id number]) 1955 M Date Time Provider Department 12/31/22 3:15 PM SARBJIT RICHARDSON [facility] During your visit today, we recorded the following information about you: Pulse Blood pressure Weight Height 69/minute 123/77 114.8 kg 1.981 m Sarbjit Richardson, DIRECTOR PAYER.RESTAURANT GENERAL MANAGER 12/31/2022 5:04 PM Signed [facility] Follow up visit December 31, 2022 Chief [...] He was evaluated by Cardiology at the [facility] for syncopal episodes. 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 put in in the front front loader residential driver and helped him to the house - [...] essentially unremarkable including troponins and ECG 09/11/2022 [facility]- Cardiology - Jackie Banks ASSISTANT HEAD CASHIER wrote: I copied and pasted my initial consult note from [facility] date 07/20/2022 for continuity of care: Hx paroxysmal atrial fibrillation. Undervent a watchman device implant at [facility] 03/06/2022. History of CAD. AAA not [...] Last evaluated one month ago by neurology [facility]. Recent MRA MRV. HPI: Syncope began about [...] hypertension, Lab (more content not included)... Normal [facility] Follow Up (General Surgery)o n 12-13-2022 Follow Up (General Surgery) Diagnoses/Problems H/O hiatal hernia (V12.79) (Z87.19) Patient Discussion/Summary followup as needed Provider Impressions Patient continues to do well. He was reassured; followup as needed Chief Complaint Patient is here for follow up History of Present Ppounmn18-qvto-uah patient who underwent laparoscopic hiatal hernia repair [...] BY MOUTH TWICE DAILY WITH MEALS Pyridostigmine [place] 60 MG Oral TabletTAKE 1 TABLET BY [...] Oral Tablet Vitamin D (Ergocalciferol) 1.25 MG (14559 UT) Oral CapsuleTAKE 1 CAPSULE BY MOUTH [...] Muscle strain; ALBERT = N; Sent To: [facility] Patient Discussion/Summary Ice pack to left abdominal [...] here for post op History of Present [id number]-[id number] patient who underwent laparoscopic repair of paraesophageal [...] Vancomycin HCl in Dextrose SOLN Recorded By: Pegyg Rivas; 09/25/2022 12:33:09 PM Current Meds Medication [...] BY MOUTH TWICE DAILY WITH MEALS Pyridostigmine [place] 60 MG Oral TabletTAKE 1 TABLET BY [...] Oral Tablet Vitamin D (Ergocalciferol) 1.25 MG (62821 UT) Oral CapsuleTAKE 1 CAPSULE BY MOUTH ONCE A WEEK Vitals Vital Signs Recorded: 29Nov2022 01:43PM Height6 ft 6 in Plnsim582 lb BMI Vndjdlpybb21.24 kg/m2 BSA Calculated2.49 Physical Exam abd: soft, non-distended, tenderness over LUQ trocar site; no hernia Signatures Electronically signed by : Yossi Chen MD (more content not included)... Normal [facility] Discharge [id number] Discharge Profile2 Discharge Orders: Anticipated Discharge Date: Anticipated Discharge [id number] Hospital Providers: Provider RoleProvider Name Yossi Olguin [...] up Call to Schedule in2 weeks Phone [phone] Commentscall to make appointment Other Clinician Instructions: Other Instructions: Other Clinician InstructionsAvoid bread, salad, steak and carbonated beverages for 2 wks Electronic Signatures: Sivan Costa (DIRECTOR PAYER-[facility]) (Signed 22-Nov-2022 12:04) Authored: Discharge Orders, Provider FINAL REVIEW of Orders, Appointments, Gold Form - Asbestos Abatement Technician Summary Yossi Chen) (Signed 22-Nov-2022 12:26) Authored: Discharge Orders, Provider FINAL REVIEW of Orders, Appointments, Other Clinician Instructions Last Updated: 22-Nov-2022 12:26 by Yossi Chen) [facility] Order Reconciliationon 11-22 Order Reconciliation Page 1 Discharge Reconciliation Document Reconciliation Type: Discharge requested on behalf of Yossi Chen (Physician) done by Yossi Chen) Discharge - Partial Reconciliation: 22-Nov-2022 12:05 by: Sivan Costa ([facility]) Discharge - Reconciliation: 22-Nov-2022 12:31 by: [...] not required (more content not included)... Normal [facility] APTTon 11-21-2022 aPTT Coag (Bld) [Time] 34 s Normal 27 - 38 [facility] Comment on above: Result Comment: Note new reference range as of 10/09/2022 at 10:00am. Performed By: #### A PTT ####[facility] [place], [place] [id number] Activated Partial Thrombopla stin Timeon 11-21-2022 aPTT Coag (PPP) [Time] 34 s 27 - 38 [facility] 201 DO Work Phone: Comment on [...] applied here Patient Transferred from Other Facility ([facility], [facility],etc)no Patient Identity Verified Bypatient ID Band [...] AlertFor Ebola-like Symptoms: Isolate Patient and Notify Provider/Housing Officer For Contact: Notify Provider/Housing Officer Advance Directive: Advance Directive/DNRyes Advance Directive typeLiving Will Living Will AvailabilityLiving Will not available now Living Will [id number] [place] Fall Screen: History of falling (immediate [...] Communicatenone Learning Preferencesaudio Cultural Considerationsnone Developmental Considerationsnone Temple Considerationsnone Learning Assessment (Other Learner): Other learner availableno Depression Screen: During the past month, have you often been bothered by feeling down, depressed or hopelessno During the past month, have you often had little interest or pleasure in doing thingsno Have you had any thoughts of harming anyone elseno [place] Suicide: Risk Screen Not Applicable/Able to Answerable [...] Was this within the past 3 monthsno [place] Suicide Riskmoderate Adult Nutrition Screen: Have you [...] Spiritual Screen: Are there any cultural, spiritual, shinto practices/values/needs that are important for us to knowno CAGE: Is this an injured patient at a Trauma Center ([facility]/[place]): no Vaccinations: Vaccination - Influenza Vaccination Screen: (more content not included)... Normal [facility] CBC AND DIFFERENTIALon 11-21 % AUTOMATED IMMATURE GRAN 0.3 % Normal 0.0 - 0.9 [facility] Comment on above: Result Comment: Nataliia ture Granulocyte Count (IG) includes promyelocytes, myelocytes and metamyelocytes but does not include bands. Percent differential counts (%) should be interpreted in the context of the absolute cell counts (cells/L). Performed By: #### C BCDF #### [address] [id number] Basophils (Bld) [#/Vol] 0.04 10*3/uL Normal 0.00 - 0.10 [facility] Comment on above: Performed By: #### C BCDF #### [address] [id number] Basophils/100 WBC (Bld) 0.6 % Normal 0.0 - 2.0 [facility] Comment on above: Performed By: #### C BCDF #### [address] [id number] Eosinophils (Bld) [#/Vol] 0.27 10*3/uL Normal 0.00 - 0.70 [facility] Comment on above: Performed By: #### C BCDF #### [address] [id number] Eosinophils/100 WBC (Bld) 3.9 % Normal 0.0 - 6.0 [facility] Comment on above: Performed By: #### C BCDF #### [address] [id number] Erythrocyte distribution width (RBC) [Ratio] 13.5 % Normal 11.5 - 14.5 [facility] Comment on above: Performed By: #### C BCDF #### [address] [id number] Hematocrit (Bld) [Volume fraction] 40.1 % Low 41.0 - 52.0 [facility] Comment on above: Performed By: #### C BCDF #### [address] [id number] Hemoglobin (Bld) [Mass/Vol] 13.3 g/dL Low 13.5 - 17.5 [facility] Comment on above: Performed By: #### C BCDF #### [address] [id number] Lymphocytes (Bld) [#/Vol] 1.54 10*3/uL Normal 1.20 - 4.80 [facility] Comment on above: Performed By: #### C BCDF #### [address] [id number] Lymphocytes/100 WBC (Bld) 22.3 % Normal 13.0 - 44.0 [facility] Comment on above: Performed By: #### C BCDF #### [address] [id number] MCHC (RBC) [Mass/Vol] 33.2 g/dL Normal 32.0 - 36.0 [facility] Comment on above: Performed By: #### C BCDF #### [address] [id number] MCV (RBC) [Entitic vol] 83 fL Normal 80 - 100 [facility] Comment on above: Performed By: #### C BCDF #### [address] [id number] Monocytes (Bld) [#/Vol] 0.71 10*3/uL Normal 0.10 - 1.00 [facility] Comment on above: Performed By: #### C BCDF #### [address] [id number] Monocytes/100 WBC (Bld) 10.3 % Normal 2.0 - 10.0 [facility] Comment on above: Performed By: #### C BCDF #### [address] [id number] Neutrophils (Bld) [#/Vol] 4.33 10*3/uL Normal 1.20 - 7.70 [facility] Comment on above: Performed By: #### C BCDF #### [address] [id number] Neutrophils/100 WBC (Bld) 62.6 % Normal 40.0 - 80.0 [facility] Comment on above: Performed By: #### C BCDF #### [address] [id number] Platelets (Bld) [#/Vol] 210 10*3/uL Normal 150 - 450 [facility] Comment on above: Performed By: #### C BCDF #### [address] [id number] RBC 4.84 x10E12/L Normal 4.50 - 5.90 [facility] Comment on above: Performed By: #### C BCDF #### [address] [id number] WBC (Bld) [#/Vol] 6.9 10*3/uL Normal 4.4 - 11.3 [facility] Comment on above: Performed By: #### C BCDF #### [address] [id number] COMPREHENSIVE PANELon 2022 Albumin [Mass/Vol] 4.4 g/dL Normal 3.4 - 5.0 [facility] Comment on above: Performed By: #### C MP #### [address] [id number] ALP [Catalytic activity/Vol] 60 U/L Normal 33 - 136 [facility] Comment on above: Performed By: #### C MP #### [address] [id number] ALT [Catalytic activity/Vol] 14 U/L Normal 10 - 52 [facility] [facility] Comment on above: Result Comment: Kasandra ents treated with Sulfasalazine may generate falsely decreased results for ALT. Performed By: #### C MP #### [address] [id number] Anion gap [Moles/Vol] 14 mmol/L Normal 10 - 20 [facility] Comment on above: Performed By: #### C MP #### [address] [id number] AST [Catalytic activity/Vol] 13 U/L Normal 9 - 39 [facility] Comment on above: Performed By: #### C MP #### [address] [id number] Bilirubin [Mass/Vol] 0.3 mg/dL Normal 0.0 - 1.2 [facility] Comment on above: Performed By: #### C MP #### [address] [id number] Calcium [Mass/Vol] 7.1 mg/dL Low 8.6 - 10.3 [facility] Comment on above: Performed By: #### C MP #### [address] [id number] Chloride [Moles/Vol] 106 mmol/L Normal 98 - 107 [facility] Comment on above: Performed By: #### C MP #### [address] [id number] Creatinine [Mass/Vol] 1.38 mg/dL High 0.50 - 1.30 [facility] Comment on above: Performed By: #### C MP #### [address] [id number] GFR/1.73 sq M.predicted among non-blacks MDRD (S/P/Bld) [Vol rate/Area] 55 mL/min/{1.73_m2} Abnormal >90 [facility] Comment on above: Result Comment: CALC ULATIONS OF ESTIMATED GFR ARE PERFORMED USING THE 2020 CKD-EPI STUDY REFIT EQUATION WITHOUT THE RACE VARIABLE FOR THE IDMS-TRACEABLE CREATININE METHODS. https://jasn.asnjournals.org/content//ASN.9755934 988 Performed By: #### C MP #### [address] [id number] Glucose [Mass/Vol] 105 mg/dL High 74 - 99 [facility] Comment on above: Performed By: #### C MP #### [address] [id number] HCO3 (Bld) [Moles/Vol] 24 mmol/L Normal 21 - 32 [facility] Comment on above: Performed By: #### C MP #### [address] [id number] Potassium [Moles/Vol] 3.8 mmol/L Normal 3.5 - 5.3 [facility] Comment on above: Performed By: #### C MP #### [address] [id number] Protein [Mass/Vol] 7.2 g/dL Normal 6.4 - 8.2 [facility] Comment on above: Performed By: #### C MP #### [address] [id number] Sodium [Moles/Vol] 140 mmol/L Normal 136 - 145 [facility] Comment on above: Performed By: #### C MP #### [address] [id number] Urea nitrogen [Mass/Vol] 23 mg/dL Normal 6 - 23 [facility] Comment on above: Performed By: #### C MP #### [address] [id number] Clinical Event Note-Surgical first assistanton 11-21-2022 Clinical Event Note-senior sales assistant Clinical Event: Clinical Event Note: TopicSurgical child nutrition assistant Details power plant assistant to dr Yossi Chen. Procedure: Laparoscopic repair of Type 3 paraesophageal hernia with Toupet wrap. Provider/Team Contact Info-Pager Fab Law PA-C [phone] Electronic Signatures: Kee Law (PAC) (Signed 21-Nov-2022 14:31) Authored: Clinical Event Note Last Updated: 21-Nov-2022 14:31 by Kee Law (PAC) Normal [facility] Complete Blood Count + Diffe rentialon 11-21-2022 Basophils/100 WBC (Bld) 0.6 % 0.0 - 2.0 [facility] ia 201 DO Work Phone: Erythrocyte distribution width (RBC) [Ratio] 13.5 % See Below [facility] 201 DO Work Phone: Comment on above: Reference Range: 11. 5 - 14.5 Hematocrit (Bld) [Volume fraction] 40.1 % below low threshold See Below [facility] ia 201 DO Work Phone: Comment on above: Reference Range: 41. 0 - 52.0 Hemoglobin (Bld) [Mass/Vol] 13.3 g/dL below low threshold See Below -[place] [facility] 201 DO Work Phone: Comment on above: Reference Range: 13. 5 - 17.5 Lymphocytes/100 WBC (Bld) 22.3 % See Below [facility] [facility] 201 DO Work Phone: Comment on above: Reference Range: 13. 0 - 44.0 MCHC (RBC) [Mass/Vol] 33.2 g/dL See Below -[place] [facility] 201 DO Work Phone: Comment on above: Reference Range: 32. 0 - 36.0 MCV (RBC) [Entitic vol] 83 fL 80 - 100 [facility] [facility] 201 DO Work Phone: Monocytes/100 WBC (Bld) 10.3 % 2.0 - 10.0 -[place] [facility] 201 DO Work Phone: Neutrophils/100 WBC (Bld) 62.6 % See Below [facility] 201 DO Work Phone: Comment on above: Reference Range: 40. 0 - 80.0 Platelets (Bld) [#/Vol] 210 10*3/uL 150 - 450 [facility] [facility] 201 DO Work Phone: RBC (Bld) [#/Vol] 4.84 {x10E12/L} See Below [facility] 201 DO Work Phone: Comment on above: Reference Range: 4.5 0 - 5.90 WBC (Bld) [#/Vol] 6.9 10*3/uL 4.4 - 11.3 [facility] [place] 201 DO Work Phone: Complete Blood Count + Differential 0.04 {x10E9/L} See Below [facility] [facility] 201 DO Work Phone: Comment on above: Reference Range: 0.0 0 - 0.10 Complete Blood Count + Differential 0.27 {x10E9/L} See Below [facility] 201 DO Work Phone: Comment on above: Reference Range: 0.0 0 - 0.70 Complete Blood Count + Differential 0.71 {x10E9/L} See Below [facility] 201 DO Work Phone: Comment on above: Reference Range: 0.1 0 - 1.00 Complete Blood Count + Differential 1.54 {x10E9/L} See Below [facility] 201 DO Work Phone: Comment on above: Reference Range: 1.2 0 - 4.80 Complete Blood Count + Differential 4.33 {x10E9/L} See Below [facility] 201 DO Work Phone: Comment on above: Reference Range: 1.2 0 - 7.70 Complete Blood Count + Differential 3.9 % 0.0 - 6.0 [facility] 201 DO Work Phone: Complete Blood Count + Differential 0.3 % 0.0 - 0.9 [facility] 201 DO Work Phone: Comment on above: Immature Granulocyte Count (IG) includes promyelocytes, myelocytes and metamyelocytes but does not include bands. Percent differential counts (%) should be interpreted in the context of the absolute cell counts (cells/L). Laboratory - Chemistry and C hemistry - challengeon 11-21-2022 Albumin BCP dye [Mass/Vol] 4.4 g/dL 3.4 - 5.0 [facility] 201 DO Work Phone: ALP [Catalytic activity/Vol] 60 U/L 33 - 136 [facility] 201 DO Work Phone: ALT With P-5'-P [Catalytic activity/Vol] 14 U/L 10 - 52 [facility] 201 DO Work Phone: Comment on above: Patients treated wit h Sulfasalazine may generate falsely decreased results for ALT. Anion gap [Moles/Vol] 14 mmol/L 10 - 20 [facility] [facility] 201 DO Work Phone: AST With P-5'-P [Catalytic activity/Vol] 13 U/L 9 - 39 [facility] [facility] 201 DO Work [phone] Bilirubin [Mass/Vol] 0.3 mg/dL 0.0 - 1.2 -[place] [facility] [place] 201 DO Work Phone: Calcium [Mass/Vol] 7.1 mg/dL below low threshold 8.6 - 10.3 [facility] [facility] 201 DO Work Phone: Chloride [Moles/Vol] 106 mmol/L 98 - 107 [facility] 201 DO Work Phone: CO2 [Moles/Vol] 24 mmol/L 21 - 32 [facility] [facility] 201 DO Work Phone: Creatinine [Mass/Vol] 1.38 mg/dL above high threshold See Below [facility] [facility] 201 DO Work Phone: Comment on above: Reference Range: 0.5 0 - 1.30 Glucose [Mass/Vol] 105 mg/dL above high threshold 74 - 99 [facility] [facility] 201 DO Work Phone: Potassium [Moles/Vol] 3.8 mmol/L 3.5 - 5.3 [facility] [facility] 201 DO Work Phone: [phone] Protein [Mass/Vol] 7.2 g/dL 6.4 - 8.2 [facility] 201 DO Work Phone: [phone] Sodium [Moles/Vol] 140 mmol/L 136 - 145 [facility] 201 DO Work Phone: [phone] Urea nitrogen [Mass/Vol] 23 mg/dL 6 - 23 [facility] [facility] 201 DO Work Phone: Laboratory - Coagulationon 0 11-21-2022 INR Coag (PPP) [Relative time] 1.0 {INR} 0.9 - 1.1 -[place] [facility] 201 DO Work Phone: PT Coag (PPP) [Time] 11.7 s 9.8 - 12.8 -[facility] ia 201 DO Work Phone: Comment on above: Note new reference r josephine as of 10/09/2022 at 10:00am. No Panel Informationon 11-21 -[place] [facility] 201 DO Work Phone: 55 {mL/min/1.73m2} Abnormal >90 -[facility] 201 DO Work Phone: Comment on above: CALCULATIONS OF FLORENTIN MATED GFR ARE PERFORMED USING THE 2020 CKD-EPI STUDY REFIT EQUATION WITHOUT THE RACE VARIABLE FOR THE IDMS-TRACEABLE CREATININE METHODS.https://jasn.asnjournals.org/content/early//ASN .3678535675 PT/INRon 11-21-2022 PT Coag (PPP) [Time] 11.7 s Normal 9.8 - 12.8 [facility] Comment on above: Result Comment: Note new reference range as of 10/09/2022 at 10:00am. Performed By: #### P TINR ####[address] [place], [place] [id number] PT, INR 1.0 Normal 0.9 - 1.1 [facility] Comment on above: Performed By: #### P TINR ####[facility] [place], [place] [id number] Patient Profile - Adult v2on 11-21-2022 Patient [...] applicable(1) Weight in kg113.7 kilogram(s) Weight in ixs252.6 pound(s) Weight Methodstated Scale Typebed Height in [...] Profile - Preop v3 19-Nov-2022 11:56 Normal [facility] Surgical Pathology Depar tmenton 11-21-2022 [facility] Surgical Pathology Department Name YOLI ANTUNEZ Tera ISIDRO Pathologist: KAITLYN LAW MD Date of Procedure: 11/21/2022 Date Received: 11/21/2022 Date Reported 12/03/2022 Submitting Physician: YOSSI CHEN MD Location: [facility] Copy To/Referring/Attending: RADHA BURRIS MD Other External # FINAL DIAGNOSIS A. HIATAL HERNIA SAC: -- BENIGN ADIPOSE TISSUE AND CONTAINED BENIGN LYMPH NODES. Electronically Signed Out By KAITLYN LAW MD/AWP By the signature on this report, the individual or group listed as making the Final Interpretation/Diagnosis certifies that they have reviewed this case. Diagnostic interpretation performed at [facility] [address] [place] [address] Clinical History: Physician Contact Number: [phone] Fixative (A): Formalin Clinical Diagnosis History HIATAL HERNIA. Specimens Submitted As: A: HERNIA SAC Gross Description: Received in formalin, labeled with the patient's name and hospital number and hernia sac , are multiple segments of yellow fibroadipose soft tissue aggreagting to 8.0 x 5.0 x 2.5 cm. Areas of induration, nodularity, hemorrhage or necrosis are not seen. Chief Writer sections are submitted in one cassette. LMP lmp/11/27/2022 [facility] Department of Pathology [address] [place] [address] Normal [facility] Comment on above: Performed By: #### [facility] #### [facility] Surgical Pathology Department [address] [place] [address] Patient Profile - Preop v3on 11-19-2022 Patient Profile - Preop v3 Patient Profile - Preop: Initial Info: Patient DemographicsName: YOLI ANTUNEZ Date: 1955 Address: [address] [place] [id number] Date/Time 12:28 Primary Phone [phone] Instructions Givenappropriate clothing, bring glasses/contacts case, bring responsible adult as the utility driver (procedure may be cancelled if no utility driver), center location, insurance information, remove jewerly/piercings, time to arrive Prep Instructions Reviewedn/a Instructions/Prep CommentNPO after midnight - bring event recorder info/ID card day of procedure How to be AddressedFred Spoken Language PreferredEnglish Source of Informationpatient Stated Reason for Admissionhiatal hernia repair Primary Contact Name and Arias Smith [phone] Limitations on Visitors/Phone Callsnone Medications Brought to Hospitalno General Health: Weight in kg113.5 kilogram(s) Weight in vjg682.2 pound(s) Weight Methodactual (measured) Scale Typestanding Height [...] recorder- right side of chest- checked at [facility] kidney stone watchman device cataract detached retina [...] dhruv; hypertension Cardiovascular Management Strategiesmedication therapy; 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 coding auditor Cardiovascular Symptoms/Conditions Commentcardiac ablation for atrial fib/ watchman device/ Event recorder (asked to bring ID in day of procedure - Checked at [place] office) Endocrine Symptoms/Conditionsthyroid disease Endocrine Management Strategiesmedication [...] Withspouse Living Arrangementshouse Resource/Environmental Concernsnone Anticipated Transition [place] [facility] Anticipated at Transitionnone Tobacco Use: Tobacco Useyes Tobacco Typecigarettes Number of Packs per Day2 Number of yrs15 Pack yrs30 Tobacco Commentquit smoking 1986 Pre-op Checklist: Arrival [id number] Arrival Time05:23 Procedure TypeLaparoscopic Hiatal Hernia repair with Toupet wrap possible feeding tube and upper endoscopy NPOyes Last Food [id number]-Yul-4459 22:00 Last Clear Fluid Ndygrw72-Ohu-9206 22:00 ID Band On Patientpatient ID (name), [...] Allergies, Ho (more content not included)... Normal [facility] CNPNon 11-16-2022 CNPN Telephone (NHMNS2) YOLI ANTUNEZ ([id number]) 1955 M Date Time Provider Department 11/16/22 SARBJIT RICHARDSON [facility] During your visit today, we recorded the following information about you: Jessica Scott 11/16/2022 5:56 PM Signed Received faxed report of medical records done at . Uploaded via [employer], will be available in [employer] for review shortly. Allergies As of Date: [...] Status:Closed by JESSICA SCOTT on 11/29/22 Normal [facility] Initial Visit (General Surge ry)on 11-12-2022 Initial [...] gas bloat, inability to burp, blood clot, MT and stroke. All questions answered and he is willing to proceed. He will be on a full liquid diet for 3 days after surgery and then advance to a soft diet. Avoid bread Blue Diamond steak and carbonated beverage for 2 weeks. Chief Complaint Patient referred by Dr. Daily for a hiatal hernia consult. History of Present Kxwppnt89 y/o male patient referred for symptomatic hiatal [...] waking up feeling unrefreshed, excessive daytime fatigue. Logan Sleepiness Scale Score is 16 /24. Fatigue [...] CPAP ( (more content not included)... Normal [facility] Order Reconciliationon 10-15 Order Reconciliation Page 1 [...] 1.25 milligram(s) orally once a day Normal [facility] Patient Profile - Preop v3on 10-12-2022 Patient Profile - Preop v3 Patient Profile - Preop: Initial Info: Patient DemographicsName: YOLI ANTUNEZ Date: 1955 Address: [address] [place] [address] Primary Phone [phone] Instructions Giventime to arrive, Arrival time of 0930 for surgery time of 1100 How to be Addressedfrederick Spoken Language PreferredEnglish Stated Reason for Admissionsleep study Primary Contact Name and Numbersee facesheet Medications Brought to Hospitalno General Health: Weight in kg116.6 kilogram(s) Weight in rgx070 pound(s) Height in feet6 feet Height in inches5.95 inch(es) Height in cm197.9 centimeter(s) BMI (kg/m2)29.771 square meter Patient or Family Member Reaction to Anesthesiapatient reaction Patient Reaction to Anesthesiaawakening delayed Blood Avoidance/Restrictionsnone Previous Transfusion Reactionnot applicable Health Mgmt: Symptoms/Conditions Managed at Homecardiovascular; endocrine Barriers to Managing Healthnone Relationship/Environ: Lives Withspouse Living Arrangementshouse Resource/Environmental Concernsnone Anticipated Transition [place] [employer] [facility] Anticipated at Transitionnone Tobacco Use: Tobacco Useno Pre-op Checklist: Arrival [id number] Arrival Time09:59 Procedure Typesleep study NPOyes Last Food [id number]-Htl-2244 00:00 Last Clear Fluid [id number]-Ktg-1506 00:00 ID Band On Patientpatient ID (name), [...] Updated: 15-Oct-2022 10:00 by Letty Godfrey) Normal [facility] Electrocardiogram 12 Leadon 10-10-2022 Electrocardiogram 12 Lead Ventricular Rate 70 Atrial Rate 70 P-R Interval 194 QRS Duration 78 Q-T Interval 420 QTC Calculation(Bazett) 453 P Patillas 38 R Patillas 13 T Patillas 66 QRS Count 12 Q Onset 222 P Onset 125 P Offset 161 T Offset 432 QTC Fredericia 442 Diagnosis Class Normal Diagnosis Normal sinus rhythm Normal ECG No previous ECGs available Confirmed by Aliya Candelaria ([id number]) on 10/14/2022 8:34:16 PM Normal [facility] No Panel Informationon 10-10 [email or web address]?R [email or web address]?Patie mxZF=[id number]&Date= 023&Time=14%3a24%3a36%3a00& TestType=ECG&Site=10&Output Type=PDF&Ext=PDF [facility] Work Phone: Normal sinus rhythm [facility] Work Phone: Normal [facility] Work Phone: [phone] [facility] Work Phone: [phone] [facility] Work Phone: [phone] [facility] Work Phone: [phone] [facility] Work Phone: [phone] [facility] Work Phone: [phone] [facility] Work Phone: [phone] [facility] Work Phone: [phone] [facility] Work Phone: [phone] [facility] Work Phone: [phone] [facility] Work Phone: [phone] [facility] Work Phone: [phone] [facility] Work Phone: [phone] [facility] Work Phone: [phone] [facility] Work Phone: Established Visit (Otolaryng ology)on 09-25-2022 [...] symptoms appear more central. Sees neurology at [facility] who suspects he may have autonomic dysfunction - F/u with [facility] neurology as scheduled 2) ADA, [...] telehealth visit. Dysphagia follow-up History of Present [age]kmbpsq6 year old man with history of intermittnet [...] more in his throat. Seeing neurology at [facility] for his intermittent aphasia. Still [...] following interpretation. (more content not included)... Normal [facility] Established Visit (Otolaryng ology)on 09-24-2022 Established Visit [...] assist you through your ENT care at [facility]. Dr. Perrin is an ENT surgeon who specializes in voice, airway and swallowing issues. This means that she specializes in taking care of patients with complex voice, airway and swallowing problems. Dr. Perrin's office number is [phone]. Please use this number to contact her and her care team regardless of which office you use to access care. This number is the most direct way to communicate with all the members of the care team. Dr. Perrin?s metallurgy teacher answers the office phone from 9am-4pm Mon-Fri. Call [phone] and push 2. She can help you with scheduling of appointments, general questions and information. You may need to leave a message if she is helping another patient. In this case, someone from the team will call you back the same day if you leave your message before 3pm, or the next business morning. Dr. Perrin?s nurse and can be reached by calling [phone]. We make every effort to return phone calls the same day. If you are in need of urgent assistance after hours, please call [phone] and ask for ENT continuous crusher operator. Dr. Perrin works closely with speech therapists as they work together to help solve your issues with speech and swallowing. You may see a speech therapist during your appointment if Dr. Perrin feels this is needed. If you need to reach speech therapy to talk with a therapist or to schedule an appointment, please call [phone]. Others who may be included in your care are dieticians, social workers, audiologists, neurologists, and physical therapists. Dr. Perrin will provide these referrals as needed. Please let her know if you would like to request a specific referral. For your convenience, Dr. Perrin sees patients at different [facility] locations including the [facility] at [facility], and [facility] [place] at the [facility]. While we try to make your [...] discuss his care with Dr. Long at [facility] to understand current treatment plans [...] Michaud. He (more content not included)... Normal [facility] Established Visit (Otolaryngology) No report was sent Normal [facility] No Panel Informationon 09-13 [email or web address]?={[email or web address] [email or web address]} [facility] 3315 Work Phone: [facility] 3316 Work Phone: -Otolaryngo [facility] 4102 Work Phone: [facility] Surgical Pathology Depar tmenton 09-13-2022 [facility] Surgical Pathology Department Name YOLI ANTUNEZAmarijt ISIDRO Pathologist: LIZZ LINN MD Date of [...] reviewed this case. Diagnostic interpretation performed at [facility] [address] [place] [address] Clinical History: R/O Esophagitis and metaplasia Specimens Submitted As: A: GE JUNCTION COLD FORCEPS Gross Description: Received in formalin, labeled with the patient's name and hospital number and A , are 2 fragments of martin, soft tissue aggregating to 0.5 x 0.2 x 0.2 cm. The specimen is submitted in toto in one cassette. SBS sbs/09/21/2022 [facility] Department of Pathology [address] [place] [address] Normal [facility] Comment on above: Performed By: #### [facility] #### [facility] Surgical Pathology Department [address] [place] [address] Upper GI endoscopyon 023 Upper GI endoscopy PATIENTNAME Patient Name: Yoli Antunez EXAMDATE Procedure Date: 09/13/2022 3:41 PM PATIENTID PATIENTACCOUNTNUM PATIENTDOB Date of : 1955 ADMITTYPE Admit Type: Outpatient PATIENTROOM Site: [place] Procedure Room 2 ETHNICITY Ethnicity: Not or RACE Race: White PROVDR Attending MD: Ruby Daily MD, [id number] ENDOPROCEDURENAME Procedure: Upper GI endoscopy INDICATION Indications: Dysphagia, cricopharyngeal web PRIMARYPROVIDER Providers: Ruby Daily MD (Doctor), Vale Mercado RN (Nurse), Sabina Atkins, Scene Painter EDREFPROVIDER Referring: Ruby Daily MD CURRENT_MEDS Medicines: [...] medications. CPT_CODES Procedure Code(s): --- Professional --- 25708, Moderate sedation services provided by the same physician or other qualified health memory care program director performing the diagnostic or therapeutic service that the sedation supports, requiring the presence of an independent trained observer to assist in the monitoring of the patient's level of consciousness and physiological status; initial 15 minutes of intraservice time, patient age 5 years or older [address], Unlisted procedure, esophagus ICD_CODES Diagnosis Code(s): --- Professional --- J38.3, O (more content not included)... Normal [facility] SURGICAL PATHOLOGY RESULTSon 09-06-2022 Pathology Report Name BROOKE ANTUNEZAmarjit Pathologist: MAYELIN AVILEZ MD Date of Procedure: [...] ABNORMALITIES. Electronically Signed Out By MAYELIN AVILEZ MD/[facility] By the signature on this report, the individual or group listed as making the Final Interpretation/Diagnosis certifies that they have reviewed this case. Diagnostic interpretation performed at [facility] [address] [facility]. [facility] [address] Clinical History: A) R/O H.pylori B) R/O [...] in toto in one cassette. DMB dmb/09/04/2022 [facility] Department of Pathology [id number] [facility] Established Visit (Otolaryng ology)on 09-04-2022 Established Visit [...] telehealth visit. Dysphagia follow-up History of Present Aobmdip42 year old man with history of dysphagia [...] inflammatory na (more content not included)... Normal [facility] EGDon 08-30-2022 Beth Diego MD - 10/15/2022 Patient Name: Yoli Antunez Procedure Date: 08/30/2022 7:32 AM Date of : 1955 Admit Type: Outpatient Site: [place] Procedure Room 5 Ethnicity: Not or Race: White Attending MD: ELISEO Williamson, [id number] Procedure: Upper GI endoscopy Indications: Dysphagia for 5 years to both liquids and solids Patient Profile: This is a 67 year old male. Refer to note in patient chart for documentation of history and physical. Providers: ELISEO Williamson (Doctor), Jaylen Lo RN (Nurse), Florentino De Dios, Scene Painter, Kristin Mcdaniels RN (Nurse) Referring: Radha Burris [...] specimen was done by the nurse and reprographics technician using the patient's name and medical record number. Estimated blood loss was minimal. A single 3 mm nodule was found at the gastroesophageal junction, 39 cm from the incisors. Biopsies were taken with a cold forceps for histology. Verification of patient identification for the specimen was done by the nurse and reprographics technician using the patient's name and medical [...] specimen was done by the nurse and reprographics technician using the patient's name and medical [...] right naris un (more content not included)... [facility] Work Phone: Radiology Study observation (narrative) [facility] Work Phone: EGDOrdered By: Beth Diego on 08-30-2022 [facility] Work Phone: No Panel Informationon 08-30 Name BROOKE ANTUNEZ JR. Pathologist: MAYELIN AVILEZ MD Date of Procedure: 08/30/2022 Date Rec [facility] Work Phone: [email or web address]} [facility] Work Phone: [facility]-Otol[facility]o log[facility] [...] 1.25 milligram(s) orally once a day Normal [facility] Surgical Pathology Depar tmenton 08-30-2022 [facility] Surgical Pathology Department Name YOLI ANTUNEZ [...] ABNORMALITIES. Electronically Signed Out By MAYELIN AVILEZ MD/[facility] By the signature on this report, the individual or group listed as making the Final Interpretation/Diagnosis certifies that they have reviewed this case. Diagnostic interpretation performed at [facility] [address] [address] [facility] [address] Clinical History: A) R/O H.pylori B) R/O [...] in toto in one cassette. DMB dmb/09/04/2022 [facility] Department of Pathology [id number] [place] [address] Comment on above: Performed By: #### [facility] #### [facility] Surgical Pathology Department [address] [place] [address] Upper GI endoscopyon 023 Upper GI endoscopy PATIENTNAME Patient Name: Yoli Antunez EXAMDATE Procedure Date: 08/30/2022 7:32 AM PATIENTID PATIENTACCOUNTNUM PATIENTDOB Date of : 1955 ADMITTYPE Admit Type: Outpatient PATIENTROOM Site: [place] Procedure Room 5 ETHNICITY Ethnicity: Not or RACE Race: White PROVDR Attending MD: ELISEO Williamson, [id number] ENDOPROCEDURENAME Procedure: Upper GI endoscopy INDICATION Indications: Dysphagia for 5 years to both liquids and solids PTPROFILE Patient Profile: This is a 67 year old male. Refer to note in patient chart for documentation of history and physical. PRIMARYPROVIDER Providers: ELISEO Williamson (Doctor), Jaylen Lo, RN (Nurse), Florentino De Dios, Scene Painter, Kristin Mcdaniels RN (Nurse) EDREFPROVIDER Referring: Radha [...] specimen was done by the nurse and reprographics technician using the patient's name and medical record number. Estimated blood loss was minimal. A single 3 mm nodule was found at the gastroesophageal junction, 39 cm from the incisors. Biopsies were taken with a cold forceps for histology. Verification of patient identification for the specimen was done by the nurse and reprographics technician using the patient's name and medical [...] specimen was done by the nurse and reprographics technician using the patient's name and medical [...] re (more content not included)... Normal [facility] Established Visit (Otolaryng ology)on 08-17-2022 Established Visit [...] waking up feeling unrefreshed, excessive daytime fatigue. Logan Sleepiness Scale Score is 16 /24. Fatigue [...] CPAP; however, (more content not included)... Normal [employer] Tobacco Screening.on 023 Adult depression screening assessment No [facility]-Otolaryn go [facility] [facility] Work Phone: Fall risk assessment a) No falls within the last year [facility]-Otolaryngo logy-[employer] [facility] Work Phone: Tobacco use status CPHS b) No MG-Otolaryngo logy-[employer] [facility] Work Phone: WINDOW CLEANER (Progress Note)on 2022 WINDOW CLEANER (Progress Note) Therapy Diagnosis Assessed Dysphagia, oropharyngeal [...] to doctors? appointments. Primary Language for learning: Eritrean. Insurance Insurance reviewed Visit number: 3 Onset [...] verbalized understanding and agreement: yes CPT Code 07943 Treatment of swallowing dysfunction and/or oral function for feeding Signatures Electronically signed by : Yoanna Quigley CCC-WINDOW CLEANER; Aug 13 2022 3:44PM EST (Author) Normal [facility] GI ESOPHAGRAMon 08-10-2022 GI ESOPHAGRAM Patient Name: YOLI ANTUNEZ STUDY: GI ESOPHAGRAM; ; 08/10/2022 1:49 pm INDICATION: assess motility, r/o achalasia, assess mass/lesions R13.12: Dysphagia, oropharyngeal phase. COMPARISON: None. ACCESSION NUMBER(S): [id number] ORDERING CLINICIAN: RUBY DAILY TECHNIQUE: Fluoroscopic guided single and double contrast barium esophagram. FINDINGS: Policy Manager view of the chest, abdomen shows loop [...] Electronically signed by: JAE SOUTH MD Normal [facility] Radiologyon 08-10-2022 XR Esophagus Views W [...] a telehealth visit. Swallow History of Present [id number] year old man with history of dysphagia [...] 20 MG (more content not included)... Normal [employer] Tobacco Screening.on 023 Adult depression screening assessment No [employer]-Otolaryn go [employer] Work Phone: Fall risk assessment b) One or more fall s in the last year MG-Otolaryngo [employer] Work Phone: Tobacco use status CPHS b) No [employer]-Otolaryngo [employer] Work Phone: WINDOW CLEANER (Progress Note)on 2022 WINDOW CLEANER (Progress Note) No report was sent Normal [employer] WINDOW CLEANER (Progress Note) Therapy Diagnosis Assessed Dysphagia, oropharyngeal [...] to doctors? appointments. Primary Language for learning: Eritrean. 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 COMPARISON: None. ACCESSION NUMBER(S): [id number] ORDERING CLINICIAN: RANJANA PERRIN TECHNIQUE: MBSS completed. Informed verbal consent obtained prior to completion of exam. Trials of thin, nectar thick, honey thick, puree, soft-solids, and regular solids given. Fluoroscopy time : 3 minutes, 2 seconds. WINDOW CLEANER: Osmel Lozano M.S., [facility]-WINDOW CLEANER Phone/Pager: Can be contacted via [employer] or SPEECH FINDINGS: Reason for referral: A [...] a home program 2-3 times per day. USP goals: Patient will be able to tolerate [...] regarding the esophageal phase of the swallow. WINDOW CLEANER impressions with severity rating: Patient presents with [...] nectar thi (more content not included)... Normal [facility] No Panel Informationon 07-18 Normal MG-Otolaryngo arvindy[facility] Work Phone: Swallow Evaluation v2-Modifi ed Barium Swallow, SLPon 07-18-2022 Swallow Evaluation v2-Modified Barium Swallow, WINDOW CLEANER Rehab: Info: Time IN11:05 Time OUT11:55 Total Treatment [id number] Evaluation TypeModified Barium Swallow, WINDOW CLEANER Impression: Assessment (Swallow Eval)WINDOW CLEANER impressions with severity rating: [Patient presents with [...] of the EMR/AEMR Electronic Signatures: Osmel Lozano (WINDOW CLEANER) (Signed 18-Jul-2022 14:17) Authored: Info, Impression Last Updated: 18-Jul-2022 14:17 by Osmel Lozano (WINDOW CLEANER) Normal [facility] Established Visit (Otolaryng ology)on 07-17-2022 [...] assist you through your ENT care at [facility]. Dr. Perrin is an ENT surgeon who specializes in voice, airway and swallowing issues. This means that she specializes in taking care of patients with complex voice, airway and swallowing problems. Dr. Perrin's office number is [phone]. Please use this number to contact her and her care team regardless of which office you use to access care. This number is the most direct way to communicate with all the members of the care team. Dr. Perrin?s metallurgy teacher answers the office phone from 9am-4pm Sat-Sat. Call [phone] and push [phone]. She can help you with scheduling of appointments, general questions and information. You may need to leave a message if she is helping another patient. In this case, someone from the team will call you back the same day if you leave your message before 3pm, or the next business morning. Dr. Perrin?s nurse and can be reached by calling [phone]. We make every effort to return phone calls the same day. If you are in need of urgent assistance after hours, please call [phone] and ask for ENT continuous crusher operator. Dr. Perrin works closely with speech therapists as they work together to help solve your issues with speech and swallowing. You may see a speech therapist during your appointment if Dr. Perrin feels this is needed. If you need to reach speech therapy to talk with a therapist or to schedule an appointment, please call [phone]. Others who may be included in your care are dieticians, social workers, audiologists, neurologists, and physical therapists. Dr. Perrin will provide these referrals as needed. Please let her know if you would like to request a specific referral. For your convenience, Dr. Perrin sees patients at different [facility] locations including the [facility] at [facility], and [facility] [place] at the [facility]. While we try to make your [...] on Omeprazole (more content not included)... Normal [facility] Tobacco Screening.on 023 Adult depression screening assessment No -Otolaryn [facility] 4[facility] Work Phone: Fall risk assessment b) One or more fall s in the last year [facility] 4100 Work Phone: Tobacco use status CPHS b) No [facility] 4100 Work Phone: BNPon 06-04-2022 Natriuretic peptide B (Bld) [Mass/Vol] 182.0 pg/mL Normal <=900.0 [facility] Comment on above: Performed By: #### H STROPN #### [facility] [address] [place] [address] Dr. Kulwant Brennan CARDIAC MAYELIN ADMITon 023 CK [Catalytic activity/Vol] 86 U/L Normal 39-308 [facility] Comment on above: Performed By: #### L ACT #### [facility] [address] [place] [address] Dr. Kulwant Brennan CK.MB [Mass/Vol] 0.84 ng/mL Normal <=3.60 [facility] Comment on above: Performed By: #### L ACT #### [facility] [address] [place] [address] Dr. Kulwant Brennan HSTROP 4.6 pg/mL Normal 4.0-76.1 [facility] Comment on above: Result Comment: CUT- OFF POINTS HAVE BEEN ESTABLISHED BASED ON THE FOURTH UNIVERSAL DEFINITIONS OF MYOCARDIAL INFARCTION. THE UPPER REFERENCE LIMIT (URL) OF TROPONIN, DEFINED THE 99TH PERCENTILE OF cTnI DISTRIBUTION IN A REFERENCE POPULATION, HAS BEEN CONFIRMED THE DECISION THRESHOLD FOR MT DIAGNOSIS. Performed By: #### L ACT #### [facility] [address] [place] [address] Dr. Kulwant Brennan EFRAIN 52 ng/mL Normal 16-96 [facility] Comment on above: Performed By: #### L ACT #### [facility] [address] [place] [address] Dr. Kulwant Brennan CBC AUTO DIFFon 06-04-2022 BASO # 0.1 103/ul Normal 0.0-0.1 [facility] Comment on above: Performed By: #### L ACT #### [facility] [address] [address] [address] Kulwant Brennan Basophils/100 WBC (Bld) 0.5 % Normal 0.2-2.0 [facility] Comment on above: Performed By: #### L ACT #### [facility] [address] [address] [address] Kulwant Brennan EO # 0.2 103/ul Normal 0.0-0.7 [facility] Comment on above: Performed By: #### L ACT #### [facility] [address] [address] [address] Kulwant Brennan Eosinophils/100 WBC (Bld) 2.6 % Normal 0.9-7.0 [facility] Comment on above: Performed By: #### L ACT #### [facility] [address] [address] [address] Kulwant Brennan Erythrocyte distribution width (RBC) [Ratio] 15.0 % Normal 11.0-15.0 [facility] Comment on above: Performed By: #### L ACT #### [facility] [address] [place] [address] Dr. Kulwant Brennan Hematocrit (Bld) [Volume fraction] 42.3 % Normal 42.0-54.0 [facility] Comment on above: Performed By: #### L ACT #### [facility] [address] [place] [address] Dr. Kulwant Brennan Hemoglobin (Bld) [Mass/Vol] 14.0 g/dL Normal 14.0-18.0 [facility] Comment on above: Performed By: #### L ACT #### [facility] [address] [address] [address] Kulwant Brennan IG # 0.10 10e3/ul Critically high 0.00-0.03 [facility] Comment on above: Performed By: #### L ACT #### [facility] [address] [place] [address] Dr. Kulwant Brennan IG % 1.1 % Critically high 0.0-0.5 [facility] Comment on above: Performed By: #### L ACT #### [facility] [address] [place] [address] Dr. Kulwant Brennan LYMPH # 2.7 103/ul Normal 1.2-3.8 [facility] Comment on above: Performed By: #### L ACT #### [facility] [address] [place] [address] Dr. Kulwant Brennan Lymphocytes/100 WBC (Bld) 29.1 % Normal 20.5-60.0 [facility] Comment on above: Performed By: #### L ACT #### [facility] [address] [place] [address] Dr. Kulwant Brennan MANUAL DIFF REQ NO Normal [facility] Comment on above: Performed By: #### L ACT #### [facility] [address] [place] [address] Dr. Kulwant Brennan MCH (RBC) [Entitic mass] 27.0 pg Normal 25.9-34.0 [facility] Comment on above: Performed By: #### L ACT #### [facility] [address] [place] [address] Dr. Kulwant Brennan MCHC (RBC) [Mass/Vol] 33.1 g/dL Normal 29.9-35.2 [facility] Comment on above: Performed By: #### L ACT #### [facility] [address] [place] [address] Dr. Kulwant Brennan MCV (RBC) [Entitic vol] 81.5 fL Normal 80.0-94.0 [facility] Comment on above: Performed By: #### L ACT #### [facility] [address] [place] [address] Dr. Kulwant Brennan MONO # 1.0 103/ul Critically high 0.3-0.8 [facility] Comment on above: Performed By: #### L ACT #### [facility] [address] [place] [address] Dr. Kulwant Brennan Monocytes/100 WBC (Bld) 10.5 % Normal 1.7-12.0 [facility] Comment on above: Performed By: #### L ACT #### [facility] [address] [place] [address] Dr. Kulwant Brennan NEUT # 5.1 103/ul Normal 1.4-6.5 [facility] Comment on above: Performed By: #### L ACT #### [facility] [address] [place] [address] Dr. Kulwant Brennan Neutrophils/100 WBC (Bld) 56.2 % Normal 43.0-75.0 [facility] Comment on above: Performed By: #### L ACT #### [facility] [address] [place] [address] Dr. Kulwant Brennan Platelet mean volume (Bld) [Entitic vol] 10.0 fL Normal 9.5-13.5 [facility] Comment on above: Performed By: #### L ACT #### [facility] [address] [place] [address] Dr. Kulwant Brennan PLT 251 103/ul Normal 150-450 [facility] Comment on above: Performed By: #### L ACT #### [facility] [address] [place] [address] Dr. Kulwant Brennan RBC 5.19 106/ul Normal 4.70-6.10 [facility] Comment on above: Performed By: #### L ACT #### [facility] [address] [place] [address] Dr. Kulwant Brennan WBC 9.1 103/ul Normal 4.0-11.0 [facility] Comment on above: Performed By: #### L ACT #### [facility] [address] [place] [address] STROKE HEAD WOon [...] CONNER TANG Date: 2022-06-04 07:16 Normal [facility]23 SARS-CoV-2 (COVID-19) RNA MIKE+probe Ql (Unsp spec) Not detected Normal NOT DETECTED [facility] Comment on above: Result Comment: When diagnostic [...] for this test is supported by the [place] of Health and Human Service's declaration that [...] used). Performed By: #### H STROPN #### [facility] [address] [place] [address] Dr. Kulwant Brennan D-DIMERon 06-04-2022 D-DIMER 0.38 mg/L FEU Normal <=0.59 [facility] Comment on above: Performed By: #### D DIM #### [facility] [address] [place] [address] Dr. Kulwant Brennan D-DIMER COMMENTS SEE BELOW Normal [facility] Comment on above: Result Comment: [...] hospitalization. Performed By: #### D DIM #### [facility] [address] [place] [address] Dr. Kulwant Brennan PROF 14(COMP METB)on 023 Albumin [Mass/Vol] 4.1 g/dL Normal 3.4-5.0 [facility] Comment on above: Performed By: #### H STROPN #### [facility] [address] [place] [address] Dr. Kulwant Brennan Albumin/Globulin [Mass ratio] 1.1 {ratio} Normal [facility] Comment on above: Performed By: #### H STROPN #### [facility] [address] [place] [address] Dr. Kulwant Brennan ALP [Catalytic activity/Vol] 78 U/L Normal 46-116 [facility] Comment on above: Performed By: #### H STROPN #### [facility] [address] [place] [address] Dr. Kulwant Brennan ALT [Catalytic activity/Vol] 26 U/L Normal 16-63 [facility] Comment on above: Performed By: #### H STROPN #### [facility] [address] [place] [address] Dr. Kulwant Brennan Anion gap [Moles/Vol] 16.3 mmol/L Normal [facility] Comment on above: Performed By: #### H STROPN #### [facility] [address] [place] [address] Dr. Kulwant Brennan AST [Catalytic activity/Vol] 18 U/L Normal 15-37 [facility] Comment on above: Performed By: #### H STROPN #### [facility] [address] [address] [address] Kulwant Brennan Bilirubin [Mass/Vol] 0.4 mg/dL Normal 0.2-1.0 [facility] Comment on above: Performed By: #### H STROPN #### [facility] [address] [address] [address] Kulwant Brennan Calcium [Mass/Vol] 8.4 mg/dL Critically low 8.5-10.1 Th [facility] Comment on above: Performed By: #### H STROPN #### [facility] [address] [address] [address] Kulwant Brennan Chloride [Moles/Vol] 104 mmol/L Normal 98-107 [facility] Comment on above: Performed By: #### H STROPN #### [facility] [address] [address] [address] Kulwant Brennan CO2 [Moles/Vol] 24.8 mmol/L Normal 21.0-32.0 [facility] Comment on above: Performed By: #### H STROPN #### [facility] [address] [address] [address] Kulwant Brennan Creatinine [Mass/Vol] 1.52 mg/dL Critically high 0.70-1.30 [facility] Comment on above: Performed By: #### H STROPN #### [facility] [address] [address] [address] Kulwant Brennan EGFR-AF CZECH 55 mL/min/1.73m2 Critically low >=60 [facility] Comment on above: Performed By: #### H STROPN #### [facility] [address] [address] [address] Kulwant Brennan EGFR-NON AF CZECH 46 mL/min/1.73m2 Critically low >=60 [facility] Comment on above: Performed By: #### H STROPN #### [facility] [address] [address] [address] Kulwant Brennan Globulin (S) [Mass/Vol] 3.6 g/dL Normal [facility] Comment on above: Performed By: #### H STROPN #### [facility] [address] [address] [address] Kulwant Brennan Glucose [Mass/Vol] 102 mg/dL Normal 74-106 [facility] Comment on above: Performed By: #### H STROPN #### [facility] [address] [address] [address] Kulwant Brennan Potassium [Moles/Vol] 4.1 mmol/L Normal 3.5-5.1 [facility] Comment on above: Performed By: #### H STROPN #### [facility] [address] [address] [address] Kulwant Brennan Protein [Mass/Vol] 7.7 g/dL Normal 6.4-8.2 [facility] Comment on above: Performed By: #### H STROPN #### [facility] [address] [address] [address] Kulwant Brennan Sodium [Moles/Vol] 141 mmol/L Normal 136-145 [facility] Comment on above: Performed By: #### H STROPN #### [facility] [address] [address] [address] Kulwant Brennan Urea nitrogen [Mass/Vol] 30.0 mg/dL Critically high 7.0-18.0 [facility] Comment on above: Performed By: #### H STROPN #### [facility] [address] [address] [address] Kulwant Brennan Urea nitrogen/Creatinine [Mass ratio] 19.7 mg/mg Normal [facility] Comment on above: Performed By: #### H STROPN #### [facility] [address] [address] [address] Kulwant Brennan PROTIMEon 06-04-2022 INR Coag (PPP) [Relative time] 0.99 {INR} Normal [facility] Comment on above: Performed By: #### P TT, PT ####[facility] [id number] [place] [address]Dr. Kulwant Brennan INR GUIDELINES SEE BELOW Normal [facility] Comment on above: Result Comment: HAYDEE RED INR: 2.0 - 3.0 CONDITIONS NOT LISTED BELOW 2.5 - 3.5 FOR PROSTHETIC HEART VALVE REPLACEMENT 2.5 - 3.5 RECURRENT THROMBOSIS Performed By: #### P TT, PT ####[facility] [id number] [place] [address]Dr. Kulwant Brennan PT Coag (PPP) [Time] 10.5 s Normal 9.0-11.6 [facility] Comment on above: Performed By: #### P TT, PT ####[facility] [address] [place] [address]Dr. Kulwant Brennan PTTon 06-04-2022 aPTT Coag (Bld) [Time] 30.4 s Normal 22.3-36.2 [facility] Comment on above: Performed By: #### P TT, PT ####[facility] [address] [place] [address]Dr. Kulwant Brennan TROPONIN, HIGH SENSITIVITYon 06-04-2022 HSTROP 4.5 pg/mL Normal 4.0-76.1 [facility] Comment on above: Result Comment: CUT- OFF POINTS HAVE BEEN ESTABLISHED BASED ON THE FOURTH UNIVERSAL DEFINITIONS OF MYOCARDIAL INFARCTION. THE UPPER REFERENCE LIMIT (URL) OF TROPONIN, DEFINED THE 99TH PERCENTILE OF cTnI DISTRIBUTION IN A REFERENCE POPULATION, HAS BEEN CONFIRMED THE DECISION THRESHOLD FOR MT DIAGNOSIS. Performed By: #### H STROPN ####[facility] [address] [place] [address]Dr. Kulwant Brennan HSTROP 4.3 pg/mL Normal 4.0-76.1 The [facility] Comment on above: Result Comment: CUT- OFF POINTS HAVE BEEN ESTABLISHED BASED ON THE FOURTH UNIVERSAL DEFINITIONS OF MYOCARDIAL INFARCTION. THE UPPER REFERENCE LIMIT (URL) OF TROPONIN, DEFINED THE 99TH PERCENTILE OF cTnI DISTRIBUTION IN A REFERENCE POPULATION, HAS BEEN CONFIRMED THE DECISION THRESHOLD FOR MT DIAGNOSIS. Performed By: #### H STROPN #### [facility] [address] [address] [address] Kulwant Brennan TSHon 06-04-2022 TSH 2.572 uIU/mL Normal 0.358-3.74 0 [facility] Comment on above: Performed By: #### L ACT #### [facility] [address] [address] [address] Kulwant Brennan XR CHEST 1 Von [...] by: FLORENTIN PALMA Date: 2022-06-04 04:40 Normal [facility] XR CHEST 2 Von 06-04-2022 XR [...] by: NICOLE CASAREZ Date: 2022-06-04 16:28 Normal [facility] XR Hand Complete Left*on XR Hand [...] by Chaz Moreau on 04/17/2022 1415 Normal [facility] [employer] ECHO LIMITED STUDYon 022 ECHO LIMITED STUDY Patient: YOLI ANTUNEZ Exam Date: 03/22/2022 : 1955 Gender:M Ordering : [facility] Admission #: [id number] Family : Order #: [id number] CLICK HERE TO VIEW EXAM ECHOCARDIOGRAM REPORT [...] M.D. on 03/22/2022 at 20:31 Normal [facility] XR Abdomen Single View (KUB) *on 03-21-2022 [...] by Chaz Moreau on 03/21/2022 0944 Normal [facility] [employer] AMYLASEon 02-05-2022 Amylase [Catalytic activity/Vol] 58 U/L Normal 25-115 [facility] Comment on above: Performed By: #### L IPA, YAHIR, CMP #### [facility] [address] [place] [address] Dr. Kulwant Brennan CBC AUTO DIFFon 02-05-2022 BASO # 0.1 103/ul Normal 0.0-0.1 [facility] Comment on above: Performed By: #### L ACT #### [facility] [address] [address] [address] Kulwant Brennan Basophils/100 WBC (Bld) 0.8 % Normal 0.2-2.0 [facility] Comment on above: Performed By: #### L ACT #### [facility] [address] [address] [address] Kulwant Brennan EO # 0.2 103/ul Normal 0.0-0.7 The [facility] Comment on above: Performed By: #### L ACT #### [facility] [address] [address] [address] Kulwant Brennan Eosinophils/100 WBC (Bld) 2.3 % Normal 0.9-7.0 The [facility] Comment on above: Performed By: #### L ACT #### [facility] [address] [address] [address] Kulwant Brennan Erythrocyte distribution width (RBC) [Ratio] 14.6 % Normal 11.0-15.0 [facility] Comment on above: Performed By: #### L ACT #### [facility] [address] [address] [address] Kulwant Brennan Hematocrit (Bld) [Volume fraction] 39.9 % Critically low 42.0-54.0 [facility] Comment on above: Performed By: #### L ACT #### [facility] [address] [place] [address] Dr. Kulwant Brennan Hemoglobin (Bld) [Mass/Vol] 12.7 g/dL Critically low 14.0-18.0 [facility] Comment on above: Performed By: #### L ACT #### [facility] [address] [address] [address] Kulwant Brennan IG # 0.03 10e3/ul Normal 0.00-0.03 [facility] Comment on above: Performed By: #### L ACT #### [facility] [address] [place] [address] Dr. Kulwant Brennan IG % 0.5 % Normal 0.0-0.5 [facility] Comment on above: Performed By: #### L ACT #### [facility] [address] [place] [address] Dr. Kulwant Brennan LYMPH # 1.9 103/ul Normal 1.2-3.8 [facility] Comment on above: Performed By: #### L ACT #### [facility] [address] [place] [address] Dr. Kulwant Brennan Lymphocytes/100 WBC (Bld) 28.3 % Normal 20.5-60.0 [facility] Comment on above: Performed By: #### L ACT #### [facility] [address] [place] [address] Dr. Kulwant Brennan MANUAL DIFF REQ NO Normal [facility] Comment on above: Performed By: #### L ACT #### [facility] [address] [place] [address] Dr. Kulwant Brennan MCH (RBC) [Entitic mass] 27.4 pg Normal 25.9-34.0 [facility] Comment on above: Performed By: #### L ACT #### [facility] [address] [address] [address] Kulwant Brennan MCHC (RBC) [Mass/Vol] 31.8 g/dL Normal 29.9-35.2 [facility] Comment on above: Performed By: #### L ACT #### [facility] [address] [address] [address] Kulwant Brennan MCV (RBC) [Entitic vol] 86.0 fL Normal 80.0-94.0 [facility] Comment on above: Performed By: #### L ACT #### [facility] [address] [address] [address] Kulwant Brennan MONO # 0.7 103/ul Normal 0.3-0.8 [facility] Comment on above: Performed By: #### L ACT #### [facility] [address] [place] [address] Dr. Kulwant Brennan Monocytes/100 WBC (Bld) 10.4 % Normal 1.7-12.0 [facility] Comment on above: Performed By: #### L ACT #### [facility] [address] [place] [address] Dr. Kulwant Brennan NEUT # 3.8 103/ul Normal 1.4-6.5 [facility] Comment on above: Performed By: #### L ACT #### [facility] [address] [place] [address] Dr. Kulwant Brennan Neutrophils/100 WBC (Bld) 57.7 % Normal 43.0-75.0 [facility] Comment on above: Performed By: #### L ACT #### [facility] [address] [address] [address] Kulwant Brennan Platelet mean volume (Bld) [Entitic vol] 9.9 fL Normal 9.5-13.5 [facility] Comment on above: Performed By: #### L ACT #### [facility] [address] [place] [address] Dr. Kulwant Brennan PLT 224 103/ul Normal 150-450 [facility] Comment on above: Performed By: #### L ACT #### [facility] [address] [address] [address] Kulwant Brennan RBC 4.64 106/ul Critically low 4.70-6.10 [facility] Comment on above: Performed By: #### L ACT #### [facility] [address] [address] [address] Kulwant Brennan WBC 6.6 103/ul Normal 4.0-11.0 [facility] Comment on above: Performed By: #### L ACT #### [facility] [address] [address] [address] Kulwant Brennan LIPASEon 02-05-2022 Lipase [Catalytic activity/Vol] 174.0 U/L Normal 73.0-393.0 [facility] Comment on above: Performed By: #### L IPA YAHIR, CMP #### [facility] [address] [place] [address] Dr. Kulwant Brennan PROF 14(COMP METB)on 022 Albumin [Mass/Vol] 4.2 g/dL Normal 3.4-5.0 [facility] Comment on above: Performed By: #### L IPA YAHIR, CMP #### [facility] [address] [place] [address] Dr. Kulwant Brennan Albumin/Globulin [Mass ratio] 1.0 {ratio} Normal [facility] Comment on above: Performed By: #### L IPA YAHIR, CMP #### [facility] [address] [place] [address] Dr. Kulwant Brennan ALP [Catalytic activity/Vol] 106 U/L Normal 46-116 [facility] Comment on above: Performed By: #### L IPA, YAHIR, CMP #### [facility] [address] [place] [address] Dr. Kulwant Brennan ALT [Catalytic activity/Vol] 91 U/L Critically high 16-63 [facility] Comment on above: Performed By: #### L IPA, YAHIR, CMP #### [facility] [address] [place] [address] Dr. Kulwant Brennan Anion gap [Moles/Vol] 13.8 mmol/L Normal [facility] Comment on above: Performed By: #### L IPA, YAHIR, CMP #### [facility] [address] [address] [address] Kulwant Brennan AST [Catalytic activity/Vol] 26 U/L Normal 15-37 [facility] Comment on above: Performed By: #### L IPA, YAHIR, CMP #### [facility] [address] [place] [address] Dr. Kulwant Brennan Bilirubin [Mass/Vol] 0.5 mg/dL Normal 0.2-1.0 [facility] Comment on above: Performed By: #### L IPA YAHIR, CMP #### [facility] [address] [place] [address] Dr. Kulwant Brennan Calcium [Mass/Vol] 8.3 mg/dL Critically low 8.5-10.1 Th e [facility] Comment on above: Performed By: #### L IPA YAHIR, CMP #### [facility] [address] [place] [address] Dr. Kulwant Brennan Chloride [Moles/Vol] 103 mmol/L Normal 98-107 [facility] Comment on above: Performed By: #### L IPA YAHIR, CMP #### [facility] [address] [place] [address] Dr. Kulwant Brennan CO2 [Moles/Vol] 26.5 mmol/L Normal 21.0-32.0 [facility] Comment on above: Performed By: #### L IPA YAHIR, CMP #### [facility] [address] [place] [address] Dr. Kulwant Brennan Creatinine [Mass/Vol] 1.37 mg/dL Critically high 0.70-1.30 [facility] Comment on above: Performed By: #### L IPA YAHIR, CMP #### [facility] [address] [place] [address] Dr. Kulwant Brennan EGFR-AF CZECH >60 Normal >=60 [facility] Comment on above: Performed By: #### L IPA, YAHIR, CMP #### [facility] [address] [place] [address] Dr. Kulwant Brennan EGFR-NON AF CZECH 52 mL/min/1.73m2 Critically low >=60 [facility] Comment on above: Performed By: #### L YAHIR NG, CMP #### [facility] [address] [place] [address] Dr. Kulwant Brennan Globulin (S) [Mass/Vol] 4.1 g/dL Normal [facility] Comment on above: Performed By: #### L YAHIR NG, CMP #### [facility] [address] [place] [address] Dr. Kulwant Brennan Glucose [Mass/Vol] 96 mg/dL Normal 74-106 [facility] Comment on above: Performed By: #### L YAHIR NG, CMP #### [facility] [address] [place] [address] Dr. Kulwant Brennan Potassium [Moles/Vol] 4.3 mmol/L Normal 3.5-5.1 [facility] Comment on above: Performed By: #### L YAHIR NG, CMP #### [facility] [address] [place] [address] Dr. Kulwant Brennan Protein [Mass/Vol] 8.3 g/dL Critically high 6.4-8.2 [facility] Comment on above: Performed By: #### L YAHIR NG, CMP #### [facility] [address] [place] [address] Dr. Kulwant Brennan Sodium [Moles/Vol] 139 mmol/L Normal 136-145 [facility] Comment on above: Performed By: #### L YAHIR NG, CMP #### [facility] [address] [place] [address] Dr. Kulwant Brennan Urea nitrogen [Mass/Vol] 27.0 mg/dL Critically high 7.0-18.0 [facility] Comment on above: Performed By: #### L YAHIR NG, CMP #### [facility] [address] [place] [address] Dr. Kulwant Brennan Urea nitrogen/Creatinine [Mass ratio] 19.7 mg/mg Normal [facility] Comment on above: Performed By: #### L YAHIR NG, CMP #### [facility] [address] [address] [address] Kulwant Brennan CBC AUTO DIFFon 01-09-2022 BASO # 0.1 103/ul Normal 0.0-0.1 [facility] Comment on above: Performed By: #### H STROPN #### [facility] [address] [place] [address] Dr. Kulwant Brennan Basophils/100 WBC (Bld) 0.5 % Normal 0.2-2.0 [facility] Comment on above: Performed By: #### H STROPN #### [facility] [address] [place] [address] Dr. Kulwant Brennan EO # 0.2 103/ul Normal 0.0-0.7 [facility] Comment on above: Performed By: #### H STROPN #### [facility] [address] [place] [address] Dr. Kulwant Brennan Eosinophils/100 WBC (Bld) 2.3 % Normal 0.9-7.0 [facility] Comment on above: Performed By: #### H STROPN #### [facility] [address] [place] [address] Dr. Kulwant Brennan Erythrocyte distribution width (RBC) [Ratio] 14.6 % Normal 11.0-15.0 [facility] Comment on above: Performed By: #### H STROPN #### [facility] [address] [place] [address] Dr. Kulwant Brennan Hematocrit (Bld) [Volume fraction] 35.8 % Critically low 42.0-54.0 [facility] Comment on above: Performed By: #### H STROPN #### [facility] [address] [place] [address] Dr. Kulwant Brennan Hemoglobin (Bld) [Mass/Vol] 11.4 g/dL Critically low 14.0-18.0 [facility] Comment on above: Performed By: #### H STROPN #### [facility] [address] [place] [address] Dr. Kulwant Brennan IG # 0.33 10e3/ul Critically high 0.00-0.03 [facility] Comment on above: Performed By: #### H STROPN #### [facility] [address] [address] [address] Kulwant Brennan IG % 3.2 % Critically high 0.0-0.5 [facility] Comment on above: Performed By: #### H STROPN #### [facility] [address] [address] [address] Kulwant Brennan LYMPH # 1.9 103/ul Normal 1.2-3.8 [facility] Comment on above: Performed By: #### H STROPN #### [facility] [address] [address] [address] Kulwant Brennan Lymphocytes/100 WBC (Bld) 18.3 % Critically low 20.5-60.0 [facility] Comment on above: Performed By: #### H STROPN #### [facility] [address] [place] [address] Dr. Kulwant Brennan MANUAL DIFF REQ NO Normal [facility] Comment on above: Performed By: #### H STROPN #### [facility] [address] [place] [address] Dr. Kulwant Brennan MCH (RBC) [Entitic mass] 26.8 pg Normal 25.9-34.0 [facility] Comment on above: Performed By: #### H STROPN #### [facility] [address] [place] [address] Dr. Kulwant Brennan MCHC (RBC) [Mass/Vol] 31.8 g/dL Normal 29.9-35.2 [facility] Comment on above: Performed By: #### H STROPN #### [facility] [address] [place] [address] Dr. Kulwant Brennan MCV (RBC) [Entitic vol] 84.0 fL Normal 80.0-94.0 [facility] Comment on above: Performed By: #### H STROPN #### [facility] [address] [address] [address] Kulwant Brennan MONO # 0.9 103/ul Critically high 0.3-0.8 [facility] Comment on above: Performed By: #### H STROPN #### [facility] [address] [address] [address] Kulwant Brennan Monocytes/100 WBC (Bld) 9.2 % Normal 1.7-12.0 [facility] Comment on above: Performed By: #### H STROPN #### [facility] [address] [address] [address] Kulwant Brennan NEUT # 6.8 103/ul Critically high 1.4-6.5 [facility] Comment on above: Performed By: #### H STROPN #### [facility] [address] [address] [address] Kulwant Brennan Neutrophils/100 WBC (Bld) 66.5 % Normal 43.0-75.0 [facility] Comment on above: Performed By: #### H STROPN #### [facility] [address] [place] [address] Dr. Kulwant Brennan Platelet mean volume (Bld) [Entitic vol] 10.5 fL Normal 9.5-13.5 [facility] Comment on above: Performed By: #### H STROPN #### [facility] [address] [address] [address] Kulwant Brennan PLT 357 103/ul Normal 150-450 [facility] Comment on above: Performed By: #### H STROPN #### [facility] [address] [place] [address] Dr. Kulwant Brennan RBC 4.26 106/ul Critically low 4.70-6.10 [facility] Comment on above: Performed By: #### H STROPN #### [facility] [address] [address] [address] Kulwant Brennan WBC 10.2 103/ul Normal 4.0-11.0 [facility] Comment on above: Performed By: #### H STROPN #### [facility] [address] [address] [address] Kulwant Brennan PROF 14(COMP METB)on 022 Albumin [Mass/Vol] 3.3 g/dL Critically low 3.4-5.0 [facility] Comment on above: Performed By: #### T RAJEEV, CMP ####[facility] [address] [address]. Kulwant Brennan Albumin/Globulin [Mass ratio] 0.8 {ratio} Normal [facility] Comment on above: Performed By: #### T RAJEEV, CMP ####[facility] [address] [place]. Kulwant Brennan ALP [Catalytic activity/Vol] 151 U/L Critically high 46-116 [facility] Comment on above: Performed By: #### T RAJEEV, CMP ####[facility] [address] [place]Dr. Alanaselvin Brennan ALT [Catalytic activity/Vol] 118 U/L Critically high 16-63 [facility] Comment on above: Performed By: #### T RAJEEV, CMP ####[facility] [address] [place] [address]Dr. Kulwant Brennan Anion gap [Moles/Vol] 12.3 mmol/L Normal [facility] Comment on above: Performed By: #### T RAJEEV, CMP ####[facility] [address] [place] [address]Dr. Kulwant Mika AST [Catalytic activity/Vol] 65 U/L Critically high 15-37 [facility] Comment on above: Performed By: #### T RAJEEV, CMP ####[facility] [address] [place] [address]Dr. Kulwant Brennan Bilirubin [Mass/Vol] 0.5 mg/dL Normal 0.2-1.0 [facility] Comment on above: Performed By: #### T RAJEEV, CMP ####[facility] [address] [place] [address]Dr. Kulwant Brennan Calcium [Mass/Vol] 5.3 mg/dL Critically low 8.5-10.1 [facility] Comment on above: Performed By: #### T RAJEEV, CMP ####[facility] [address] [place] [address]Dr. Kulwant Brennan Chloride [Moles/Vol] 104 mmol/L Normal 98-107 [facility] Comment on above: Performed By: #### T SH, CMP ####[facility] [address] [place] [address]Dr. Kulwant Brennan CO2 [Moles/Vol] 26.7 mmol/L Normal 21.0-32.0 [facility] Comment on above: Performed By: #### T SH, CMP ####[facility] [address] [place], [place] [address]Dr. Kulwant Mika Creatinine [Mass/Vol] 2.08 mg/dL Critically high 0.70-1.30 [facility] Comment on above: Performed By: #### T SH, CMP ####[facility] [address] [place], [place] [address]Dr. Kulwant Mika EGFR-AF CZECH 39 mL/min/1.73m2 Critically low >=60 [facility] Comment on above: Performed By: #### T SH, CMP ####[facility] [address] [place], [place] [address]Dr. Kulwant Mika EGFR-NON AF CZECH 32 mL/min/1.73m2 Critically low >=60 [facility] Comment on above: Performed By: #### T SH, CMP ####[facility] [address] [place], [place] [address]Dr. Alanaselvin Brennan Globulin (S) [Mass/Vol] 4.1 g/dL Normal [facility] Comment on above: Performed By: #### T SH, CMP ####[facility] [address] [place], [place] [address]Dr. Kulwant Mika Glucose [Mass/Vol] 89 mg/dL Normal 74-106 [facility] Comment on above: Performed By: #### T SH, CMP ####[facility] [address] [place], [place] [address]Dr. Alanaselvin Brennan Potassium [Moles/Vol] 4.0 mmol/L Normal 3.5-5.1 [facility] Comment on above: Performed By: #### T SH, CMP ####[facility] [address] [place], [place] [address]Dr. Kulwant Brennan Protein [Mass/Vol] 7.4 g/dL Normal 6.4-8.2 [facility] Comment on above: Performed By: #### T RAJEEV, CMP ####[facility] [facility] [id number] [address]Dr. Kulwant Brennan Sodium [Moles/Vol] 139 mmol/L Normal 136-145 [facility] Comment on above: Performed By: #### T RAJEEV, CMP ####[facility] [id number] [place], [place] [address]Dr. Kulwant Brennan Urea nitrogen [Mass/Vol] 28.0 mg/dL Critically high 7.0-18.0 [facility] Comment on above: Performed By: #### T RAJEEV, CMP ####[facility] [id number] [place], [place] [address]Dr. Kulwant Brennan Urea nitrogen/Creatinine [Mass ratio] 13.5 mg/mg Normal [facility] Comment on above: Performed By: #### T RAJEEV, CMP ####[facility] [id number] [place], [place] [address]Dr. Kulwant Brennan TSHon 01-09-2022 TSH 20.234 uIU/mL Critically high 0.358-3.74 0 [facility] Comment on above: Performed By: #### T RAJEEV, CMP ####[facility] [id number] [place], [place] [address]Dr. Kulwant Brennan Cult, Bloodon 01-06-2022 Cult, Blood Specimen Description .BLOOD Special Requests RT AC 6ML Culture NO GROWTH 5 DAYS Report Status FINAL 01/06/[address] [facility] Comment on above: Performed By: #### U RNA, URTPRT, UMICAO, UEOS, UA #### [facility] [place] [address] Stock Speculator: Ronn Arias MD Cult,Bloodon 01-06-2022 Cult,Blood Specimen Description .BLOOD Special Requests LT HAND 6ML Culture NO GROWTH 5 DAYS Report Status FINAL 01/06/[address] [facility] Comment on above: Performed By: #### U RNA, URTPRT, UMICAO, UEOS, UA #### [facility] [address] [place] [phone] Stock Speculator: Ronn Arias MD KYLE SCREEN WITH REFLEXon Anti ds DNA 5.8 NINF [facility] Comment on above: Reference Range: <10.0 Negative 10.0-15.0 Equivocal >15.0 Positive ARJUN Antibodies Screen 0.3 U/mL NINF - 0.7 U/mL [facility] Comment on above: Reference Range: <0.7 Negative 0.7-1.0 Equivocal >1.0 Positive ARJUN Screen includes U1RNP,RNP70,Sm,Ro(SS-A),La(SS-B),CENP,Scl-70,Pippa-1 Nuclear Ab IF (S) [Titer] Negative NEGATIVE [facility] KYLE Screen w/reflexon 2021 KYLE Screen Negative Normal NEG [facility] Comment on above: Performed By: #### U RNA, URTPRT, UMICAO, UEOS, UA #### [facility] [address] [place] [phone] Stock Speculator: Ronn Arias MD Anti-dsDNA 5.8 IU/mL Normal <10.0 [facility] Comment on above: Result Comment: Reference Range: <10.0 Negative 10.0-15.0 Equivocal >15.0 Positive Performed By: #### U RNA, URTPRT, UMICAO, UEOS, UA #### [facility] [address] [place] [phone] Stock Speculator: Ronn Arias MD ARJUN Screen 0.3 U/mL Normal <0.7 [facility] Comment on above: Result Comment: Reference Range: <0.7 Negative 0.7-1.0 Equivocal >1.0 Positive ARJUN Screen includes U1RNP,RNP70,Sm,Ro(SS-A),La(SS-B),CENP,Scl-70,Pippa-1 Performed By: #### U RNA, URTPRT, UMICAO, UEOS, UA #### [facility] [address] [place] [address] Stock Speculator: Ronn Arias MD Basic Metabolic Panelon 12-21 Anion gap [Moles/Vol] 14 mmol/L 9 - 17 mmol/L [facility] Calcium [Mass/Vol] 6.4 mg/dL Low 8.6 - 10. 4 mg/dL [facility] Chloride [Moles/Vol] 108 mmol/L High 98 - 10 7 mmol/L [facility] CO2 [Moles/Vol] 25 mmol/L 20 - 31 mmol/L [facility] Creatinine [Mass/Vol] 2.5 mg/dL High 0.7 - 1.2 mg/dL [facility] GFR 31 mL/min Low 60 - PI NF mL/min [facility] GFR Non- 26 mL/min Low 60 - PINF mL/min [facility] GFR/1.73 sq M.predicted MDRD (S/P/Bld) [Vol rate/Area] [facility] Comment on above: Average GFR for 60-6 9 years old: 85 mL/min/1.73sq m Chronic Kidney Disease: <60 mL/min/1.73sq m Kidney failure: <15 mL/min/1.73sq m eGFR calculated using average adult body mass. Additional eGFR calculator available at: http://www.Mark Forged.Farmia/multiple_crcl_2011.htm Glucose [Mass/Vol] 99 mg/dL 70 - 99 mg/dL [facility] Interpretation and review of laboratory results Abnormal [facility] Potassium [Moles/Vol] 4.6 mmol/L 3.7 - 5.3 mmol/L [facility] [employer] Sodium [Moles/Vol] 147 mmol/L High 135 - 144 mmol/L [facility] Urea nitrogen (BldV) [Mass/Vol] 40 mg/dL High 8 - 23 mg/dL [facility] [employer] [facility] [employer] Basic Metabolic Profon 01-05 (cont.) Normal [facility] Comment on above: Result Comment: Aver age GFR for 60-69 years old: 85 mL/min/1.73sq m Chronic Kidney Disease: <60 mL/min/1.73sq m Kidney failure: <15 mL/min/1.73sq m eGFR calculated using average adult body mass. Additional eGFR calculator available at: http://www.Mark Forged.Farmia/multiple_crcl_2012.htm Performed By: #### U RNA, URTPRT, UMICAO, UEOS, UA #### [facility] [address] [place] [phone] Stock Speculator: Ronn Arias MD Anion gap [Moles/Vol] 14 mmol/L Normal 9-17 [facility] Comment on above: Performed By: #### U RNA, URTPRT, UMICAO, UEOS, UA #### [facility] [address] [place] [phone] Stock Speculator: Ronn Arias MD Calcium [Mass/Vol] 6.4 mg/dL Low 8.6-10.4 [facility] Comment on above: Performed By: #### U RNA, URTPRT, UMICAO, UEOS, UA #### [facility] [address] [place] [phone] Stock Speculator: Ronn Arias MD Chloride [Moles/Vol] 108 mmol/L High 98-107 [facility] Comment on above: Performed By: #### U RNA, URTPRT, UMICAO, UEOS, UA #### [facility] [place] [address] Stock Speculator: Ronn Arias MD CO2 [Moles/Vol] 25 mmol/L Normal 20-31 [facility] Comment on above: Performed By: #### U RNA, URTPRT, UMICAO, UEOS, UA #### [facility] [address] [place] [phone] Stock Speculator: Ronn Arias MD Creatinine [Mass/Vol] 2.50 mg/dL High 0.70-1.20 [facility] Comment on above: Performed By: #### U RNA, URTPRT, UMICAO, UEOS, UA #### [facility] [address] [place] [phone] Stock Speculator: Ronn Arias MD GFR, Amer 31 mL/min Low >60 [facility] Comment on above: Performed By: #### U RNA, URTPRT, UMICAO, UEOS, UA #### [facility] [address] [place] [phone] Stock Speculator: Ronn Arias MD GFR,non Amer 26 mL/min Low >60 [facility] Comment on above: Performed By: #### U RNA, URTPRT, UMICAO, UEOS, UA #### [facility] [employer] [address] [place] [phone] Stock Speculator: Ronn Arias MD Glucose [Mass/Vol] 99 mg/dL Normal 70-99 [facility] Comment on above: Performed By: #### U RNA, URTPRT, UMICAO, UEOS, UA #### [facility] [employer] [address] [place] [phone] Stock Speculator: Ronn Arias MD Potassium [Moles/Vol] 4.6 mmol/L Normal 3.7-5.3 [facility] Comment on above: Performed By: #### U RNA, URTPRT, UMICAO, UEOS, UA #### [facility] [address] [place] [phone] Stock Speculator: Ronn Arias MD Sodium [Moles/Vol] 147 mmol/L High 135-144 [facility] Comment on above: Performed By: #### U RNA, URTPRT, UMICAO, UEOS, UA #### [facility] [employer] [address] [place] [address] [place] [phone] Stock Speculator: Ronn Arias MD Urea nitrogen [Mass/Vol] 40 mg/dL High 8-23 [facility] Comment on above: Performed By: #### U RNA, URTPRT, UMICAO, UEOS, UA #### [facility] [place], [place] [phone] Stock Speculator: Ronn Arias MD IMMUNOFIXATION SERUM PROFILE on 01-05-2022 Pathologist Cyto stain Nom (Cvx/Vag) [ID] Reviewed by pathologist: Kailee Portillo M.D. [facility] Serum IFX Interp IMMUNOFIXATION IS NE GATIVE FOR MONOCLONAL IMMUNOGLOBULIN. [facility] Immunofixation,Bloodon 01-05 IFX - Interpret. IMMUNOFIXATION IS NE GATIVE FOR MONOCLONAL IMMUNOGLOBULIN. [facility] Comment on above: Performed By: #### U RNA, URTPRT, UMICAO, UEOS, UA #### [facility] [employer] [address] [place] [phone] Stock Speculator: Ronn Arias MD Pathologist Review: Reviewed by patholog ist: Kailee Portillo M.D. [facility] Comment on above: Performed By: #### U RNA, URTPRT, UMICAO, UEOS, UA #### [address] [phone] Stock Speculator: Ronn Arias MD Basic Metab w/rfx MGon 01-04 (cont.) [facility] Comment on above: Result Comment: Aver age GFR for 60-69 years old: 85 mL/min/1.73sq m Chronic Kidney Disease: <60 mL/min/1.73sq m Kidney failure: <15 mL/min/1.73sq m eGFR calculated using average adult body mass. Additional eGFR calculator available at: http://www.Mark Forged.Farmia/multiple_crcl_2012.htm Performed By: #### U RNA, URTPRT, UMICAO, UEOS, UA #### [facility] [employer] [address] [place] [phone] Stock Speculator: Ronn Arias MD Anion gap [Moles/Vol] 13 mmol/L Normal 9-17 [facility] Comment on above: Performed By: #### U RNA, URTPRT, UMICAO, UEOS, UA #### [facility] [employer] [address] [place] [phone] Stock Speculator: Ronn Arias MD Calcium [Mass/Vol] 6.6 mg/dL Low 8.6-10.4 [facility] Comment on above: Performed By: #### U RNA, URTPRT, UMICAO, UEOS, UA #### [address] [phone] Stock Speculator: Ronn Arias MD Chloride [Moles/Vol] 107 mmol/L Normal 98-107 [facility] Comment on above: Performed By: #### U RNA, URTPRT, UMICAO, UEOS, UA #### [facility] [employer] [address] [place] [phone] Stock Speculator: Ronn Arias MD CO2 [Moles/Vol] 21 mmol/L Normal 20-31 [facility] Comment on above: Performed By: #### U RNA, URTPRT, UMICAO, UEOS, UA #### [facility] [employer] [address] [place] [phone] Stock Speculator: Ronn Arias MD Creatinine [Mass/Vol] 3.07 mg/dL High 0.70-1.20 [facility] Comment on above: Performed By: #### U RNA, URTPRT, UMICAO, UEOS, UA #### [facility] [employer] [address] [place] [phone] Stock Speculator: Ronn Arias MD GFR, Amer 25 mL/min Low >60 [facility] Comment on above: Performed By: #### U RNA, URTPRT, UMICAO, UEOS, UA #### [facility] [address] [place] [phone] Stock Speculator: Rnon Arias MD GFR,non Amer 20 mL/min Low >60 [facility] Comment on above: Performed By: #### U RNA, URTPRT, UMICAO, UEOS, UA #### [facility] [address] [place] [phone] Stock Speculator: Ronn Arias MD Glucose [Mass/Vol] 95 mg/dL Normal 70-99 [facility] Comment on above: Performed By: #### U RNA, URTPRT, UMICAO, UEOS, UA #### [facility] [employer] [address] [place] [phone] Stock Speculator: Ronn Arias MD Potassium [Moles/Vol] 4.3 mmol/L Normal 3.7-5.3 [facility] Comment on above: Performed By: #### U RNA, URTPRT, UMICAO, UEOS, UA #### [facility] [employer] [address] [place] [phone] Stock Speculator: Ronn Arias MD Sodium [Moles/Vol] 141 mmol/L Normal 135-144 [facility] Comment on above: Performed By: #### U RNA, URTPRT, UMICAO, UEOS, UA #### [facility] [employer] [address] [place] [phone] Stock Speculator: Ronn Arias MD Urea nitrogen [Mass/Vol] 54 mg/dL High 8-23 [facility] Comment on above: Performed By: #### U RNA, URTPRT, UMICAO, UEOS, UA #### [facility] [employer] [address] [place] [phone] Stock Speculator: Ronn Arias MD Basic Metabolic Panel w/ Ref luz to MGon 01-04-2022 Anion gap [Moles/Vol] 13 mmol/L 9 - 17 mmol/L [facility] Calcium [Mass/Vol] 6.6 mg/dL Low 8.6 - 10. 4 mg/dL [facility] Chloride [Moles/Vol] 107 mmol/L 98 - 10 7 mmol/L [facility] CO2 [Moles/Vol] 21 mmol/L 20 - 31 mmol/L [facility] Creatinine [Mass/Vol] 3.07 mg/dL High 0.7 - 1.2 mg/dL [facility] GFR 25 mL/min Low 60 - PI NF mL/min [facility] GFR Non- 20 mL/min Low 60 - PINF mL/min [facility] GFR/1.73 sq M.predicted MDRD (S/P/Bld) [Vol rate/Area] [facility] Comment on above: Average GFR for 60-6 9 years old: 85 mL/min/1.73sq m Chronic Kidney Disease: <60 mL/min/1.73sq m Kidney failure: <15 mL/min/1.73sq m eGFR calculated using average adult body mass. Additional eGFR calculator available at: http://www.Dabble DB/multiple_crcl_2012.htm Glucose [Mass/Vol] 95 mg/dL 70 - 99 mg/dL [facility] Interpretation and review of laboratory results Abnormal [facility] Potassium [Moles/Vol] 4.3 mmol/L 3.7 - 5.3 mmol/L [facility] Sodium [Moles/Vol] 141 mmol/L 135 - 144 mmol/L [facility] Urea nitrogen (BldV) [Mass/Vol] 54 mg/dL High 8 - 23 mg/dL [facility] CBC with Auto Differentialon 01-04-2022 Absolute Eos # 0.19 [facility] Absolute Immature Granulocyte 0.09 [facility] Absolute Lymph # 1.34 [facility] Absolute Baraga # 1.01 [facility] Basophils Absolute [facility] Basophils/100 WBC (Bld) 0 % 0 - 2 % [facility] Eosinophils/100 WBC (Bld) 2 % 1 - 4 % [facility] Hematocrit (Bld) [Volume fraction] 28.4 % Low 40.7 - 50.3 % [facility] Hemoglobin (Bld) [Mass/Vol] 9.3 g/dL Low 13 - 17 g/dL [facility] Immature granulocytes/100 WBC (Bld) 1 % High 0 [facility] Interpretation and review of laboratory results Abnormal [facility] Lymphocytes/100 WBC (Bld) 11 % Low 24 - 43 % [facility] MCH (RBC) [Entitic mass] 27.4 pg 25.2 - 33.5 pg [facility] MCHC (RBC) [Mass/Vol] 32.7 g/dL 28.4 - 34.8 g/dL [facility] MCV (RBC) [Entitic vol] 83.8 fL 82.6 - 102.9 fL [facility] Monocytes/100 WBC (Bld) 8 % 3 - 12 % [facility] NRBC Automated 0.0 0.0 per 100 WBC [facility] Platelet distribution width (Bld) [Ratio] 14.3 % 11.8 - 14.4 % [facility] Platelet mean volume (Bld) [Entitic vol] 10.6 fL 8.1 - 13.5 fL [facility] Platelets (Bld) [#/Vol] 177 10*3/uL [facility] RBC (Bld) [#/Vol] 3.39 10*6/uL Low 4.21 - 5.77 m/uL [facility] Segmented neutrophils/100 WBC (Bld) 78 % High 36 - 65 % [facility] Segs Absolute 9.54 High [facility] WBC (Bld) [#/Vol] 12.2 10*3/uL High [facility] CBC with Diffon 01-04-2022 Abs. Basophil <0.03 Normal 0.00-0.20 [facility] Comment on above: Performed By: #### U RNA, URTPRT, UMICAO, UEOS, UA #### [address] [phone] Stock Speculator: Ronn Arias MD Abs.Imm.Granulocyte 0.09 k/uL Normal 0.00-0.30 [facility] Comment on above: Performed By: #### U RNA, URTPRT, UMICAO, UEOS, UA #### [address] [phone] Stock Speculator: Ronn Arias MD Abs.Neutrophil (Seg) 9.54 k/uL High 1.50-8.10 [facility] Comment on above: Performed By: #### U RNA, URTPRT, UMICAO, UEOS, UA #### [place] [address] Stock Speculator: Ronn Arias MD Basophils/100 WBC (Bld) 0 % Normal 0-2 [facility] Comment on above: Performed By: #### U RNA, URTPRT, UMICAO, UEOS, UA #### [place] [address] Stock Speculator: Ronn Arias MD Eosinophils (Bld) [#/Vol] 0.19 10*3/uL Normal 0.00-0.44 [facility] Comment on above: Performed By: #### U RNA, URTPRT, UMICAO, UEOS, UA #### [address] [phone] Stock Speculator: Ronn Arias MD Eosinophils/100 WBC (Bld) 2 % Normal 1-4 [facility] Comment on above: Performed By: #### U RNA, URTPRT, UMICAO, UEOS, UA #### [facility] [employer] [address] [place] [address] Stock Speculator: Ronn Arias MD Immature granulocytes/100 WBC (Bld) 1 % High 0 [facility] Comment on above: Performed By: #### U RNA, URTPRT, UMICAO, UEOS, UA #### [address] [phone] Stock Speculator: Ronn Arias MD Lymphocytes (Bld) [#/Vol] 1.34 10*3/uL Normal 1.10-3.70 [facility] Comment on above: Performed By: #### U RNA, URTPRT, UMICAO, UEOS, UA #### [address] [phone] Stock Speculator: Ronn Arias MD Lymphocytes/100 WBC (Bld) 11 % Low 24-43 [facility] Comment on above: Performed By: #### U RNA, URTPRT, UMICAO, UEOS, UA #### [address] [phone] Stock Speculator: Ronn Arias MD Monocytes (Bld) [#/Vol] 1.01 10*3/uL Normal 0.10-1.20 [facility] Comment on above: Performed By: #### U RNA, URTPRT, UMICAO, UEOS, UA #### [address] [phone] Stock Speculator: Ronn Arias MD Monocytes/100 WBC (Bld) 8 % Normal 3-12 [facility] Comment on above: Performed By: #### U RNA, URTPRT, UMICAO, UEOS, UA #### [address] [phone] Stock Speculator: Ronn Arias MD Neutrophil (Seg) 78 % High 36-65 [facility] Comment on above: Performed By: #### U RNA, URTPRT, UMICAO, UEOS, UA #### [facility] [address] [place] [phone] Stock Speculator: Ronn Arias MD Erythrocyte distribution width (RBC) [Ratio] 14.3 % Normal 11.8-14.4 [facility] Comment on above: Performed By: #### U RNA, URTPRT, UMICAO, UEOS, UA #### [facility] [address] [place] [phone] Stock Speculator: Ronn Arias MD Hematocrit (Bld) [Volume fraction] 28.4 % Low 40.7-50.3 [facility] Comment on above: Performed By: #### U RNA, URTPRT, UMICAO, UEOS, UA #### [facility] [employer] [address] [place] [phone] Stock Speculator: Ronn Arias MD Hemoglobin (Bld) [Mass/Vol] 9.3 g/dL Low 13.0-17.0 [facility] Comment on above: Performed By: #### U RNA, URTPRT, UMICAO, UEOS, UA #### [facility] [employer] [address] [place] [phone] Stock Speculator: Ronn Arias MD MCH (RBC) [Entitic mass] 27.4 pg Normal 25.2-33.5 [facility] Comment on above: Performed By: #### U RNA, URTPRT, UMICAO, UEOS, UA #### [facility] [employer] [address] [place] [phone] Stock Speculator: Ronn Arias MD MCHC (RBC) [Mass/Vol] 32.7 g/dL Normal 28.4-34.8 [facility] Comment on above: Performed By: #### U RNA, URTPRT, UMICAO, UEOS, UA #### [facility] [employer] [address] [place] [phone] Stock Speculator: Ronn Arias MD MCV (RBC) [Entitic vol] 83.8 fL Normal 82.6-102.9 [facility] Comment on above: Performed By: #### U RNA, URTPRT, UMICAO, UEOS, UA #### [address] [phone] Stock Speculator: Ronn Arias MD NRBC Automated 0.0 per [address] [facility] Comment on above: Performed By: #### U RNA, URTPRT, UMICAO, UEOS, UA #### [address] [phone] Stock Speculator: Ronn Arias MD Platelet mean volume (Bld) [Entitic vol] 10.6 fL Normal 8.1-13.5 [facility] Comment on above: Performed By: #### U RNA, URTPRT, UMICAO, UEOS, UA #### [address] [phone] Stock Speculator: Ronn Arias MD Platelets (Bld) [#/Vol] 177 10*3/uL Normal 138-453 [facility] Comment on above: Performed By: #### U RNA, URTPRT, UMICAO, UEOS, UA #### [address] [phone] Stock Speculator: Ronn Arias MD RBC (Bld) [#/Vol] 3.39 10*6/uL Low 4.21-5.77 [facility] Comment on above: Performed By: #### U RNA, URTPRT, UMICAO, UEOS, UA #### [address] [phone] Stock Speculator: Ronn Arias MD WBC (Bld) [#/Vol] 12.2 10*3/uL High 3.5-11.3 [facility] Comment on above: Performed By: #### U RNA, URTPRT, UMICAO, UEOS, UA #### [facility] [employer] [address] [place] [phone] Stock Speculator: Ronn Arias MD Basic Metab w/rfx MGon 01-03 (cont.) Normal [facility] Comment on above: Result Comment: Aver age GFR for 60-69 years old: 85 mL/min/1.73sq m Chronic Kidney Disease: <60 mL/min/1.73sq m Kidney failure: <15 mL/min/1.73sq m eGFR calculated using average adult body mass. Additional eGFR calculator available at: http://www.Dabble DB/multiple_crcl_2011.htm Performed By: #### L ACDS #### [facility] [employer] [address] [place] [address] Stock Speculator: Ronn Arias MD Anion gap [Moles/Vol] 16 mmol/L Normal 9-17 [facility] Comment on above: Performed By: #### L ACDS #### [facility] [employer] [address] [place] [address] Stock Speculator: Ronn Arias MD Calcium [Mass/Vol] 6.9 mg/dL Low 8.6-10.4 [facility] Comment on above: Performed By: #### L ACDS #### [facility] [address] [place] [phone] Stock Speculator: Ronn Arias MD Chloride [Moles/Vol] 106 mmol/L Normal 98-107 [facility] Comment on above: Performed By: #### L ACDS #### [facility] [address] [place] [phone] Stock Speculator: Ronn Arias MD CO2 [Moles/Vol] 16 mmol/L Low 20-31 [facility] Comment on above: Performed By: #### L ACDS #### [address] [address] Stock Speculator: Ronn Arias MD Creatinine [Mass/Vol] 3.44 mg/dL High 0.70-1.20 [facility] Comment on above: Performed By: #### L ACDS #### [address] [address] Stock Speculator: Ronn Arias MD GFR, Amer 22 mL/min Low >60 [facility] Comment on above: Performed By: #### L ACDS #### [address] [address] Stock Speculator: Ronn Arias MD GFR,non Amer 18 mL/min Low >60 [facility] Comment on above: Performed By: #### L ACDS #### [address] [phone] Stock Speculator: Ronn Arias MD Glucose [Mass/Vol] 138 mg/dL High 70-99 [facility] Comment on above: Performed By: #### L ACDS #### [address] [address] Stock Speculator: Ronn Arias MD Potassium [Moles/Vol] 4.8 mmol/L Normal 3.7-5.3 [facility] Comment on above: Performed By: #### L ACDS #### [address] [address] Stock Speculator: Ronn Arias MD Sodium [Moles/Vol] 138 mmol/L Normal 135-144 [facility] Comment on above: Performed By: #### L ACDS #### [address] [phone] Stock Speculator: Ronn Arias MD Urea nitrogen [Mass/Vol] 53 mg/dL High 8-23 [facility] Comment on above: Performed By: #### L ACDS #### [facility] [address] [phone] Stock Speculator: Ronn Arias MD Basic Metabolic Panel w/ Ref luz to MGon 01-03-2022 Anion gap [Moles/Vol] 16 mmol/L 9 - 17 mmol/L [facility] Calcium [Mass/Vol] 6.9 mg/dL Low 8.6 - 10. 4 mg/dL [facility] Chloride [Moles/Vol] 106 mmol/L 98 - 10 7 mmol/L [facility] CO2 [Moles/Vol] 16 mmol/L Low 20 - 31 mmol/L [facility] Creatinine [Mass/Vol] 3.44 mg/dL High 0.7 - 1.2 mg/dL [employer] GFR 22 mL/min Low 60 - PI NF mL/min [employer] GFR Non- 18 mL/min Low 60 - PINF mL/min [facility] [facility] GFR/1.73 sq M.predicted MDRD (S/P/Bld) [Vol rate/Area] [facility] Comment on above: Average GFR for 60-6 9 years old: 85 mL/min/1.73sq m Chronic Kidney Disease: <60 mL/min/1.73sq m Kidney failure: <15 mL/min/1.73sq m eGFR calculated using average adult body mass. Additional eGFR calculator available at: http://www.Mark Forged.Farmia/multiple_crcl_2011.htm Glucose [Mass/Vol] 138 mg/dL High 70 - 99 mg/dL [facility] Potassium [Moles/Vol] 4.8 mmol/L 3.7 - 5.3 mmol/L [facility] [employer] Sodium [Moles/Vol] 138 mmol/L 135 - 144 mmol/L [facility] Urea nitrogen (BldV) [Mass/Vol] 53 mg/dL High 8 - 23 mg/dL [facility] C3on 01-03-2022 C3 108 mg/dL Normal 90-180 [facility] Comment on above: Performed By: #### U RNA, URTPRT, UMICAO, UEOS, UA #### [facility] [address] [place] [address] Stock Speculator: Ronn Arias MD C3 COMPLEMENTon 01-03-2022 Complement C3 108 mg/dL 90 - 180 mg/dL [facility] C4on 01-03-2022 C4 21 mg/dL Normal 10-40 [facility] Comment on above: Performed By: #### U RNA, URTPRT, UMICAO, UEOS, UA #### [facility] [address] [place], [place] [phone] Stock Speculator: Ronn Arias MD C4 COMPLEMENTon 01-03-2022 Complement C4 21 mg/dL 10 - 40 mg/dL [facility] CBC with Auto Differentialon 01-03-2022 Absolute Eos # [facility] Absolute Immature Granulocyte 0.09 [facility] Absolute Lymph # 0.76 Low [facility] Absolute Bar[place] # 0.39 [facility] Basophils Absolute [facility] Basophils/100 WBC (Bld) 0 % 0 - 2 % [facility] Eosinophils/100 WBC (Bld) 0 % Low 1 - 4 % [facility] Hematocrit (Bld) [Volume fraction] 31.4 % Low 40.7 - 50.3 % [facility] Hemoglobin (Bld) [Mass/Vol] 10.3 g/dL Low 13 - 17 g/dL [facility] Immature granulocytes/100 WBC (Bld) 1 % High 0 [facility] Interpretation and review of laboratory results Abnormal [facility] Lymphocytes/100 WBC (Bld) 6 % Low 24 - 43 % [facility] MCH (RBC) [Entitic mass] 27.5 pg 25.2 - 33.5 pg [facility] MCHC (RBC) [Mass/Vol] 32.8 g/dL 28.4 - 34.8 g/dL [facility] MCV (RBC) [Entitic vol] 83.7 fL 82.6 - 102.9 fL [facility] Monocytes/100 WBC (Bld) 3 % 3 - 12 % [facility] NRBC Automated 0.0 0.0 per 100 WBC [facility] Platelet distribution width (Bld) [Ratio] 14.5 % High 11.8 - 14.4 % [facility] Platelet mean volume (Bld) [Entitic vol] 10.9 fL 8.1 - 13.5 fL [facility] Platelets (Bld) [#/Vol] 170 10*3/uL [facility] RBC (Bld) [#/Vol] 3.75 10*6/uL Low 4.21 - 5.77 m/uL [facility] RBC (Bld) [#/Vol] ANISOCYTOSIS PRESENT [facility] Segmented neutrophils/100 WBC (Bld) 90 % High 36 - 65 % [facility] Segs Absolute 11.26 High [facility] WBC (Bld) [#/Vol] 12.5 10*3/uL High [facility] CBC with Diffon 01-03-2022 Abs. Basophil <0.03 Normal 0.00-0.20 [facility] Comment on above: Performed By: #### L ACDS #### [place] [address] Stock Speculator: Ronn Arias MD Abs. Eosinophil <0.03 Normal 0.00-0.44 [facility] Comment on above: Performed By: #### L ACDS #### [facility] [employer] [address] [place] [address] Stock Speculator: Ronn Arias MD Abs.Imm.Granulocyte 0.09 k/uL Normal 0.00-0.30 [facility] Comment on above: Performed By: #### L ACDS #### [facility] [employer] [address] [place] [address] Stock Speculator: Ronn Arias MD Abs.Neutrophil (Seg) 11.26 k/uL High 1.50-8.10 [facility] Comment on above: Performed By: #### L ACDS #### [address] [address] Stock Speculator: Ronn Arias MD Basophils/100 WBC (Bld) 0 % Normal 0-2 [facility] Comment on above: Performed By: #### L ACDS #### [address] [address] Stock Speculator: Ronn Arias MD Eosinophils/100 WBC (Bld) 0 % Low 1-4 [facility] Comment on above: Performed By: #### L ACDS #### [address] [address] Stock Speculator: Ronn Arias MD Erythrocyte distribution width (RBC) [Ratio] 14.5 % High 11.8-14.4 [facility] Comment on above: Performed By: #### L ACDS #### [address] [address] Stock Speculator: Ronn Arias MD Hematocrit (Bld) [Volume fraction] 31.4 % Low 40.7-50.3 [facility] Comment on above: Performed By: #### L ACDS #### [address] [address] Stock Speculator: Ronn Arias MD Hemoglobin (Bld) [Mass/Vol] 10.3 g/dL Low 13.0-17.0 [facility] Comment on above: Performed By: #### L ACDS #### [address] [address] Stock Speculator: Ronn Arias MD Immature granulocytes/100 WBC (Bld) 1 % High 0 [facility] Comment on above: Performed By: #### L ACDS #### [address] [address] Stock Speculator: Ronn Arias MD Lymphocytes (Bld) [#/Vol] 0.76 10*3/uL Low 1.10-3.70 [facility] Comment on above: Performed By: #### L ACDS #### [address] [address] Stock Speculator: Ronn Arias MD Lymphocytes/100 WBC (Bld) 6 % Low 24-43 [facility] Comment on above: Performed By: #### L ACDS #### [address] [address] Stock Speculator: Ronn Arias MD MCH (RBC) [Entitic mass] 27.5 pg Normal 25.2-33.5 [facility] Comment on above: Performed By: #### L ACDS #### [address] [address] Stock Speculator: Ronn Arias MD MCHC (RBC) [Mass/Vol] 32.8 g/dL Normal 28.4-34.8 [facility] Comment on above: Performed By: #### L ACDS #### [address] [address] Stock Speculator: Ronn Arias MD MCV (RBC) [Entitic vol] 83.7 fL Normal 82.6-102.9 [facility] Comment on above: Performed By: #### L ACDS #### [address] [address] Stock Speculator: Ronn Arias MD Monocytes (Bld) [#/Vol] 0.39 10*3/uL Normal 0.10-1.20 [facility] Comment on above: Performed By: #### L ACDS #### [address] [address] Stock Speculator: Ronn Arias MD Monocytes/100 WBC (Bld) 3 % Normal 3-12 [facility] Comment on above: Performed By: #### L ACDS #### [address] [address] Stock Speculator: Ronn Arias MD Neutrophil (Seg) 90 % High 36-65 [facility] Comment on above: Performed By: #### L ACDS #### [address] [address] Stock Speculator: Ronn Arias MD NRBC Automated 0.0 per [address] [facility] Comment on above: Performed By: #### L ACDS #### [address] [address] Stock Speculator: Ronn Arias MD Platelet mean volume (Bld) [Entitic vol] 10.9 fL Normal 8.1-13.5 [facility] Comment on above: Performed By: #### L ACDS #### [address] [address] Stock Speculator: Ronn Arias MD Platelets (Bld) [#/Vol] 170 10*3/uL Normal 138-453 [facility] Comment on above: Performed By: #### L ACDS #### [address] [address] Stock Speculator: Ronn Arias MD RBC (Bld) [#/Vol] 3.75 10*6/uL Low 4.21-5.77 [facility] Comment on above: Performed By: #### L ACDS #### [address] [address] Stock Speculator: Ronn Arias MD RBC morphology finding Nom (Bld) ANISOCYTOSIS PRESENT Normal [facility] Comment on above: Performed By: #### L ACDS #### [address] [address] Stock Speculator: Ronn Arias MD WBC (Bld) [#/Vol] 12.5 10*3/uL High 3.5-11.3 [facility] Comment on above: Performed By: #### L ACDS #### [address] [address] Stock Speculator: Ronn Arias MD EOSINOPHILS, URINEon 022 Eosinophil, Ur NONE SEEN NONE SEEN [facility] Eosinophils, Urineon 022 Eosinophils, Urine NONE SEEN Normal NSN [facility] Comment on above: Performed By: #### U RNA, URTPRT, UMICAO, UEOS, UA #### [facility] [employer] [address] [place] [phone] Stock Speculator: Ronn Arias MD Free [place] + Lambdaon 2021 [employer] [place] Lt Chains 4.01 mg/dL High 0.37-1.94 [facility] Comment on above: Performed By: #### U RNA, URTPRT, UMICAO, UEOS, UA #### [address] [address] Stock Speculator: Ronn Arias MD Free [place]/Lambda Rat 1.94 High 0.26-1.65 [facility] Comment on above: Performed By: #### U RNA, URTPRT, UMICAO, UEOS, UA #### [facility] [address] [place] [phone] Stock Speculator: Ronn Arias MD Free Lambda Lt Chains 2.07 mg/dL Normal 0.57-2.63 [facility] Comment on above: Performed By: #### U RNA, URTPRT, UMICAO, UEOS, UA #### [facility] [employer] [address] [place] [phone] Stock Speculator: Ronn Arias MD Hepatic Function Panelon Albumin [Mass/Vol] 3.2 g/dL Low 3.5 - 5.2 g/dL [facility] Albumin/Globulin [Mass ratio] 0.9 {ratio} Low 1 - 2.5 [facility] ALP (Bld) [Catalytic activity/Vol] 104 U/L 40 - 129 U/L [facility] ALT [Catalytic activity/Vol] 94 U/L High 5 - 41 U/L [facility] AST [Catalytic activity/Vol] 49 U/L High NINF - 40 U/L [facility] Bilirubin [Mass/Vol] 1.1 mg/dL 0.3 - 1 .2 mg/dL [facility] Bilirubin, Indirect 0.5 mg/dL 0 - 1 mg/dL [facility] Bilirubin.indirect [Mass/Vol] 0.6 mg/dL High NINF - 0.31 mg/dL [facility] Free PSA/Total PSA [Mass fraction] 6.7 g/dL 6.4 - 8.3 g/dL [facility] Cross [place]bers/Lambda Quantitative Fr ee Light Chains, Serumon 01-03-2022 [place]/Lambda Ratio 1.94 High 0.26 - 1.65 [facility] Interpretation and review of laboratory results Abnormal [facility] Cross Timbers Free Light Chains QNT 4.01 mg/dL High 0.37 - 1.94 mg/dL [facility] Lambda Free Light Chains QNT 2.07 mg/dL 0.57 - 2.63 mg/dL [facility] Lactate, Sepsison 01-03-2022 Lactic Acid,Sep Wbld 1.8 mmol/L Normal 0.5-1.9 [facility] Comment on above: Performed By: #### L ACDS #### [facility] [place] [address] Stock Speculator: Ronn Arias MD Lactic Acid, Sepsis, Whole Blood 1.8 mmol/L 0.5 - 1.9 mmol/L [facility] Lactic Acid,Sep Wbld 1.4 mmol/L Normal 0.5-1.9 [facility] Comment on above: Performed By: #### U RNA, URTPRT, UMICAO, UEOS, UA #### [facility] [address] [place] [phone] Stock Speculator: Ronn Arias MD Lactic Acid, Sepsis, Whole Blood 1.4 mmol/L 0.5 - 1.9 mmol/L [facility] Lactic Acid,Sep Wbld 1.5 mmol/L Normal 0.5-1.9 [facility] Comment on above: Performed By: #### L ACDS #### [facility] [employer] [address] [place] [phone] Stock Speculator: Ronn Arias MD Lactic Acid, Sepsis, Whole Blood 1.5 mmol/L 0.5 - 1.9 mmol/L [facility] Lactic Acid,Sep Wbld 1.2 mmol/L Normal 0.5-1.9 [facility] Comment on above: Performed By: #### L ACDS #### [facility] [employer] [address] [place] [phone] Stock Speculator: Ronn Arias MD Lipaseon 01-03-2022 Lipase [Catalytic activity/Vol] 250 U/L High 13-60 [facility] Comment on above: Performed By: #### L ACDS #### [facility] [employer] [address] [place] [phone] Stock Speculator: Ronn Arias MD Lipase [Catalytic activity/Vol] 250 U/L High 13 - 60 U/L [facility] Liver Profileon 01-03-2022 Albumin [Mass/Vol] 3.2 g/dL Low 3.5-5.2 [facility] Comment on above: Performed By: #### L ACDS #### [facility] [employer] [address] [place] [phone] Stock Speculator: Ronn Arias MD Albumin/Glob Ratio 0.9 Low 1.0-2.5 [facility] Comment on above: Performed By: #### L ACDS #### [address] [phone] Stock Speculator: Ronn Arias MD Alkaline Phos 104 U/L Normal 40-129 [facility] Comment on above: Performed By: #### L ACDS #### [address] [phone] Stock Speculator: Ronn Arias MD ALT [Catalytic activity/Vol] 94 U/L High 5-41 [facility] Comment on above: Performed By: #### L ACDS #### [address] [phone] Stock Speculator: Ronn Arias MD AST [Catalytic activity/Vol] 49 U/L High <40 [facility] Comment on above: Performed By: #### L ACDS #### [address] [address] Stock Speculator: Ronn Arias MD Bilirubin [Mass/Vol] 1.1 mg/dL Normal 0.3-1.2 [facility] Comment on above: Performed By: #### L ACDS #### [address] [address] Stock Speculator: Ronn Arias MD Bilirubin, Indirect 0.5 mg/dL Normal 0.00-1.00 [facility] Comment on above: Performed By: #### L ACDS #### [address] [address] Stock Speculator: Ronn Arias MD Bilirubin.indirect [Mass/Vol] 0.6 mg/dL High <0.31 [facility] Comment on above: Performed By: #### L ACDS #### [address] [address] Stock Speculator: Ronn Arias MD Protein [Mass/Vol] 6.7 g/dL Normal 6.4-8.3 [facility] Comment on above: Performed By: #### L ACDS #### [facility] [address] [place] [address] Stock Speculator: Ronn Arias MD Microscopic Urinalysison Casts UA 2 TO 5 HYALINE Refer ence range defined for non-centrifuged specimen. [facility] [employer] Epithelial Cells UA None [facility] RBC, UA 2 TO 5 [facility] Comment on above: Reference range defi juan for non-centrifuged specimen. WBC, UA 2 TO 5 [facility] No Panel Informationon 01-03 [facility] Interpretation and review of laboratory results Abnormal [facility] Procalcitoninon 01-03-2022 Procalcitonin 16.48 ng/mL High <0.09 [facility] Comment on above: Result Comment: Suspected [...] entered into the Change in Procalcitonin Calculator (www.dwkrlh-tix-rftlaxjtyi.com) to determine the patient's Mortality Risk Prognosis In healthy neonates, plasma Procalcitonin (PCT) concentrations increase gradually after , reaching peak values at about 24 hours of age then decrease to normal values below 0.5 ng/mL by 48-72 hours of age. Performed By: #### L ACDS #### [facility] [address] [place], [place] [phone] Stock Speculator: Ronn Arias MD Interpretation and review of laboratory results Abnormal [facility] Procalcitonin 16.48 ng/mL High NINF - 0.09 ng/mL [facility] Comment on above: Suspected Sepsis: <0.50 [...] entered into the Change in Procalcitonin Calculator (www.jzxnmd-yee-kjutwbegiu.Farmia) to determine the patient's Mortality Risk Prognosis In healthy neonates, plasma Procalcitonin (PCT) concentrations increase gradually after , reaching peak values at about 24 hours of age then decrease to normal values below 0.5 ng/mL by 48-72 hours of age. [facility] Protein / creatinine ratio, urineon 01-03-2022 Creatinine, Ur 84.8 mg/dL 39 - 259 mg/dL [facility] Protein (U) [Mass/Vol] 16 mg/dL [facility] Comment on above: No normal range esta blished. Urine Total Protein Creatinine Ratio 0.19 0 - 0.2 [facility] Protein,Tot,[place] Uron 2021 Creatinine [Mass/Vol] 84.8 mg/dL Normal 39.0-259.0 [facility] Comment on above: Performed By: #### U RNA, URTPRT, UMICAO, UEOS, UA #### [facility] [address] [place], [place] [phone] Stock Speculator: Ronn Arias MD Tot Prot. Conc. 16 mg/dL Normal [facility] Comment on above: Result Comment: No n ormal range established. Performed By: #### U RNA, URTPRT, UMICAO, UEOS, UA #### [facility] [address] [place], [place] [phone] Stock Speculator: Ronn Arias MD TP/Cre Ratio 0.19 Normal 0.00-0.20 [facility] Comment on above: Performed By: #### U RNA, URTPRT, UMICAO, UEOS, UA #### [facility] [address] [place], [place] [phone] Stock Speculator: Ronn Arias MD SODIUM, URINE, RANDOMon 12-21 Sodium (U) [Moles/Vol] 83 mmol/L [facility] Comment on above: No normal range [...] two black choleliths, each measuring 0.5 cm. Chief Writer sections 1c to include cystic duct margin (inked blue), fundus, body and neck. tm Microscopic Description Microscopic examination performed. SURGICAL PATHOLOGY CONSULTATION Patient Name: YOLI ANTUNEZ [facility] Rec: [id number] Path Number: [id number] [employer] [facility] ANATOMIC PATHOLOGY [address] [place] [address]. [place], [place] [address] [facility] Sodium, Random Uron 01-04-20 Sodium (U) [Moles/Vol] 83 mmol/L Normal [facility] Comment on above: Result Comment: No n ormal range established. Performed By: #### U RNA, URTPRT, UMICAO, UEOS, UA #### [facility] [address] [place] [phone] Stock Speculator: Ronn Arias MD Urinalysison 01-03-2022 Bilirubin Urine Negative NEGATIVE [facility] Color, UA Yellow Yellow [facility] Glucose, Ur Negative NEGATIVE [facility] Interpretation and review of laboratory results Abnormal [facility] Ketones Ql (U) Negative NEGATIVE [facility] Leukocyte esterase Test strip Ql (U) Negative NEGATIVE [facility] Nitrite, Urine Negative NEGATIVE [facility] pH, UA 5.5 5 - 8 [facility] Protein, UA TRACE Abnormal NEGATIVE [facility] Specific [place], UA 1.014 1.005 - 1.03 [facility] Turbidity UA Clear Clear [facility] Urine Hgb TRACE Abnormal NEGATIVE [facility] Urobilinogen, Urine Normal Normal [facility] Urinalysis, Routineon 2021 Bilirubin, SemiQt,Ur Negative Normal NEG [facility] Comment on above: Performed By: #### U RNA, URTPRT, UMICAO, UEOS, UA #### [facility] [address] [place] [phone] Stock Speculator: Ronn Arias MD Blood, Urine TRACE Abnormal NEG [facility] Comment on above: Performed By: #### U RNA, URTPRT, UMICAO, UEOS, UA #### [facility] [address] [place] [phone] Stock Speculator: Ronn Arias MD Clarity (U) Clear Normal CLEAR [facility] Comment on above: Performed By: #### U RNA, URTPRT, UMICAO, UEOS, UA #### [facility] [address] [place] [phone] Stock Speculator: Ronn Arias MD Color (U) Yellow Normal YEL [facility] Comment on above: Performed By: #### U RNA, URTPRT, UMICAO, UEOS, UA #### [facility] [address] [place] [phone] Stock Speculator: Ronn Arias MD Glucose Ql (U) Negative Normal NEG [facility] Comment on above: Performed By: #### U RNA, URTPRT, UMICAO, UEOS, UA #### [address] [address] Stock Speculator: Ronn Arias MD Ketones Ql (U) Negative Normal NEG [facility] Comment on above: Performed By: #### U RNA, URTPRT, UMICAO, UEOS, UA #### [facility] [address] [place] [phone] Stock Speculator: Ronn Arias MD Leukocyte esterase Test strip Ql (U) Negative Normal NEG [facility] Comment on above: Performed By: #### U RNA, URTPRT, UMICAO, UEOS, UA #### [facility] [address] [place] [phone] Stock Speculator: Ronn Arias MD Nitrite,Ur Negative Normal NEG [facility] Comment on above: Performed By: #### U RNA, URTPRT, UMICAO, UEOS, UA #### [facility] [address] [place] [phone] Stock Speculator: Ronn Arias MD PH,Ur 5.5 Normal 5.0-8.0 [facility] Comment on above: Performed By: #### U RNA, URTPRT, UMICAO, UEOS, UA #### [facility] [employer] [address] [place] [phone] Stock Speculator: Ronn Arias MD Protein Ql (U) TRACE Abnormal NEG [facility] Comment on above: Performed By: #### U RNA, URTPRT, UMICAO, UEOS, UA #### [facility] [employer] [address] [place] [phone] Stock Speculator: Ronn Arias MD Spec. [place],Ur 1.014 Normal 1.005-1.[address] [facility] Comment on above: Performed By: #### U RNA, URTPRT, UMICAO, UEOS, UA #### [address] [phone] Stock Speculator: Ronn Arias MD Urobilinogen,Ur Normal Normal NORM [facility] Comment on above: Performed By: #### U RNA, URTPRT, UMICAO, UEOS, UA #### [address] [address] Stock Speculator: Ronn Arias MD Urinalysis,Microon 2 Casts 2 TO 5 HYALINE Normal 0-8 [facility] Comment on above: Result Comment: Refe rence range defined for non-centrifuged specimen. Performed By: #### U RNA, URTPRT, UMICAO, UEOS, UA #### [facility] [employer] [address] [place] [phone] Stock Speculator: Ronn Arias MD Epithelial cells LM Ql (Urine sed) None Normal 0-5 [facility] Comment on above: Performed By: #### U RNA, URTPRT, UMICAO, UEOS, UA #### [facility] [employer] [address] [place] [phone] Stock Speculator: Ronn Arias MD Urine RBC's 2 TO 5 Normal 0-4 [facility] Comment on above: Result Comment: Refe rence range defined for non-centrifuged specimen. Performed By: #### U RNA, URTPRT, UMICAO, UEOS, UA #### [facility] [employer] [address] [place] [phone] Stock Speculator: Ronn Arias MD Urine WBC's 2 TO 5 Normal 0-5 [facility] Comment on above: Performed By: #### U RNA, URTPRT, UMICAO, UEOS, UA #### [address] [phone] Stock Speculator: Ronn Arias MD Basic Metab w/rfx MGon 01-02 (cont.) Normal [facility] Comment on above: Result Comment: Aver age GFR for 60-69 years old: 85 mL/min/1.73sq m Chronic Kidney Disease: <60 mL/min/1.73sq m Kidney failure: <15 mL/min/1.73sq m eGFR calculated using average adult body mass. Additional eGFR calculator available at: http://www.Mark Forged.Farmia/multiple_crcl_2012.htm Performed By: #### L ACDS #### [address] [phone] Stock Speculator: Ronn Arias MD Anion gap [Moles/Vol] 14 mmol/L Normal 9-17 [facility] Comment on above: Performed By: #### L ACDS #### [address] [phone] Stock Speculator: Ronn Arias MD Calcium [Mass/Vol] 7.2 mg/dL Low 8.6-10.4 [facility] Comment on above: Performed By: #### L ACDS #### [facility] [employer] [address] [place] [address] Stock Speculator: Ronn Arias MD Chloride [Moles/Vol] 108 mmol/L High 98-107 [facility] Comment on above: Performed By: #### L ACDS #### [address] [address] Stock Speculator: Ronn Arias MD CO2 [Moles/Vol] 20 mmol/L Normal 20-31 [facility] Comment on above: Performed By: #### L ACDS #### [address] [address] Stock Speculator: Ronn Arias MD Creatinine [Mass/Vol] 3.51 mg/dL High 0.70-1.20 [facility] Comment on above: Performed By: #### L ACDS #### [address] [address] Stock Speculator: Ronn Arias MD GFR, Amer 21 mL/min Low >60 [facility] Comment on above: Performed By: #### L ACDS #### [address] [phone] Stock Speculator: Ronn Arias MD GFR,non Amer 17 mL/min Low >60 [facility] Comment on above: Performed By: #### L ACDS #### [address] [address] Stock Speculator: Ronn Arias MD Glucose [Mass/Vol] 122 mg/dL High 70-99 [facility] Comment on above: Performed By: #### L ACDS #### [address] [phone] Stock Speculator: Ronn Arias MD Potassium [Moles/Vol] 5.0 mmol/L Normal 3.7-5.3 [facility] Comment on above: Performed By: #### L ACDS #### [address] [address] Stock Speculator: Ronn Arias MD Sodium [Moles/Vol] 142 mmol/L Normal 135-144 [facility] Comment on above: Performed By: #### L ACDS #### [address] [phone] Stock Speculator: Ronn Arias MD Urea nitrogen [Mass/Vol] 55 mg/dL High 8-23 [facility] Comment on above: Performed By: #### L ACDS #### [address] [address] Stock Speculator: Ronn Arias MD (cont.) [facility] Comment on above: Result Comment: Aver age GFR for 60-69 years old: 85 mL/min/1.73sq m Chronic Kidney Disease: <60 mL/min/1.73sq m Kidney failure: <15 mL/min/1.73sq m eGFR calculated using average adult body mass. Additional eGFR calculator available at: http://www.Mark Forged.Farmia/multiple_crcl_2012.htm Performed By: #### L IVP, BMPX, LIP, CDP #### [address] [phone] Stock Speculator: Ronn Arias MD Anion gap [Moles/Vol] 14 mmol/L Normal 9-17 [facility] Comment on above: Performed By: #### L IVP, BMPX, LIP, CDP #### [facility] [employer] [address] [place] [phone] Stock Speculator: Ronn Arias MD Calcium [Mass/Vol] 7.2 mg/dL Low 8.6-10.4 [facility] Comment on above: Performed By: #### L IVP, BMPX, LIP, CDP #### [facility] [employer] [address] [place] [phone] Stock Speculator: Ronn Arias MD Chloride [Moles/Vol] 109 mmol/L High 98-107 [facility] Comment on above: Performed By: #### L IVP, BMPX, LIP, CDP #### [facility] [address] [place] [phone] Stock Speculator: Ronn Arias MD CO2 [Moles/Vol] 18 mmol/L Low 20-31 [facility] Comment on above: Performed By: #### L IVP, BMPX, LIP, CDP #### [facility] [address] [place] [phone] Stock Speculator: Ronn Arias MD Creatinine [Mass/Vol] 4.02 mg/dL High 0.70-1.20 [facility] Comment on above: Performed By: #### L IVP, BMPX, LIP, CDP #### [facility] [address] [place] [phone] Stock Speculator: Ronn Arias MD GFR, Amer 18 mL/min Low >60 [facility] Comment on above: Performed By: #### L IVP, BMPX, LIP, CDP #### [facility] [address] [place] [phone] Stock Speculator: Ronn Arias MD GFR,non Amer 15 mL/min Low >60 [facility] Comment on above: Performed By: #### L IVP, BMPX, LIP, CDP #### [facility] [address] [place] [phone] Stock Speculator: Ronn Arias MD Glucose [Mass/Vol] 106 mg/dL High 70-99 [facility] Comment on above: Performed By: #### L IVP, BMPX, LIP, CDP #### [facility] [address] [place] [phone] Stock Speculator: Ronn Arias MD Potassium [Moles/Vol] 4.6 mmol/L Normal 3.7-5.3 [facility] Comment on above: Performed By: #### L IVP, BMPX, LIP, CDP #### [facility] [address] [place], [place] [phone] Stock Speculator: Ronn Arias MD Sodium [Moles/Vol] 141 mmol/L Normal 135-144 [facility] Comment on above: Performed By: #### L IVP, BMPX, LIP, CDP #### [facility] [address] [place], [place] [phone] Stock Speculator: Ronn Arias MD Urea nitrogen [Mass/Vol] 63 mg/dL High 8-23 [facility] Comment on above: Performed By: #### L IVP, BMPX, LIP, CDP #### [facility] [address] [place], [place] [phone] Stock Speculator: Ronn Arias MD Basic Metabolic Panel w/ Ref luz to MGon 01-02-2022 Anion gap [Moles/Vol] 14 mmol/L 9 - 17 mmol/L [employer] Calcium [Mass/Vol] 7.2 mg/dL Low 8.6 - 10. 4 mg/dL [facility] [employer] Chloride [Moles/Vol] 108 mmol/L High 98 - 10 7 mmol/L [employer] CO2 [Moles/Vol] 20 mmol/L 20 - 31 mmol/L [employer] Creatinine [Mass/Vol] 3.51 mg/dL High 0.7 - 1.2 mg/dL [employer] GFR 21 mL/min Low 60 - PI NF mL/min [employer] GFR Non- 17 mL/min Low 60 - PINF mL/min [employer] GFR/1.73 sq M.predicted MDRD (S/P/Bld) [Vol rate/Area] [employer] Comment on above: Average GFR for 60-6 9 years old: 85 mL/min/1.73sq m Chronic Kidney Disease: <60 mL/min/1.73sq m Kidney failure: <15 mL/min/1.73sq m eGFR calculated using average adult body mass. Additional eGFR calculator available at: http://www.Dabble DB/multiple_crcl_2012.htm Glucose [Mass/Vol] 122 mg/dL High 70 - 99 mg/dL [facility] Interpretation and review of laboratory results Abnormal [facility] Potassium [Moles/Vol] 5.0 mmol/L 3.7 - 5.3 mmol/L [facility] Sodium [Moles/Vol] 142 mmol/L 135 - 144 mmol/L [facility] Urea nitrogen (BldV) [Mass/Vol] 55 mg/dL High 8 - 23 mg/dL [facility] Anion gap [Moles/Vol] 14 mmol/L 9 - 17 mmol/L [facility] Calcium [Mass/Vol] 7.2 mg/dL Low 8.6 - 10. 4 mg/dL [facility] Chloride [Moles/Vol] 109 mmol/L High 98 - 10 7 mmol/L [facility] CO2 [Moles/Vol] 18 mmol/L Low 20 - 31 mmol/L [facility] Creatinine [Mass/Vol] 4.02 mg/dL High 0.7 - 1.2 mg/dL [facility] GFR 18 mL/min Low 60 - PI NF mL/min [facility] GFR Non- 15 mL/min Low 60 - PINF mL/min [facility] GFR/1.73 sq M.predicted MDRD (S/P/Bld) [Vol rate/Area] [facility] Comment on above: Average GFR for 60-6 9 years old: 85 mL/min/1.73sq m Chronic Kidney Disease: <60 mL/min/1.73sq m Kidney failure: <15 mL/min/1.73sq m eGFR calculated using average adult body mass. Additional eGFR calculator available at: http://www.Dabble DB/multiple_crcl_2012.htm Glucose [Mass/Vol] 106 mg/dL High 70 - 99 mg/dL [facility] Potassium [Moles/Vol] 4.6 mmol/L 3.7 - 5.3 mmol/L [facility] Sodium [Moles/Vol] 141 mmol/L 135 - 144 mmol/L [facility] Urea nitrogen (BldV) [Mass/Vol] 63 mg/dL High 8 - 23 mg/dL [facility] CBC with Auto Differentialon 01-02-2022 Absolute Eos # 0.12 [facility] Absolute Immature Granulocyte 0.00 [facility] Absolute Lymph # 0.37 Low [facility] Absolute Baraga # 0.49 [facility] Basophils (Bld) [#/Vol] 0.00 10*3/uL [facility] Basophils/100 WBC (Bld) 0 % 0 - 2 % [facility] Eosinophils/100 WBC (Bld) 1 % 1 - 4 % [facility] Hematocrit (Bld) [Volume fraction] 30.4 % Low 40.7 - 50.3 % [facility] Hemoglobin (Bld) [Mass/Vol] 10.2 g/dL Low 13 - 17 g/dL [facility] Immature granulocytes/100 WBC (Bld) 0 % 0 [facility] Interpretation and review of laboratory results Abnormal [facility] Lymphocytes/100 WBC (Bld) 3 % Low 24 - 44 % [facility] MCH (RBC) [Entitic mass] 28.0 pg 25.2 - 33.5 pg [facility] MCHC (RBC) [Mass/Vol] 33.6 g/dL 28.4 - 34.8 g/dL [facility] MCV (RBC) [Entitic vol] 83.5 fL 82.6 - 102.9 fL [facility] Monocytes/100 WBC (Bld) 4 % 1 - 7 % [facility] Morphology Gordon (Bld) [Interp] Normal [facility] NRBC Automated 0.0 0.0 per 100 WBC [facility] Platelet distribution width (Bld) [Ratio] 14.4 % 11.8 - 14.4 % [facility] Platelet mean volume (Bld) [Entitic vol] 10.3 fL 8.1 - 13.5 fL [facility] Platelets (Bld) [#/Vol] 150 10*3/uL [facility] RBC (Bld) [#/Vol] 3.64 10*6/uL Low 4.21 - 5.77 m/uL [facility] Segmented neutrophils/100 WBC (Bld) 92 % High 36 - 66 % [facility] Segs Absolute 11.22 High [facility] WBC (Bld) [#/Vol] 12.2 10*3/uL High [facility] CBC with Diffon 01-02-2022 Abs. Basophil 0.00 k/uL Normal 0.0-0.2 [facility] Comment on above: Performed By: #### L ACDS #### [address] [phone] Stock Speculator: Ronn Arias MD Abs.Imm.Granulocyte 0.00 k/uL Normal 0.00-0.30 [facility] Comment on above: Performed By: #### L ACDS #### [address] [phone] Stock Speculator: Ronn Arias MD Abs.Neutrophil (Seg) 11.22 k/uL High 1.8-7.7 [facility] Comment on above: Performed By: #### L ACDS #### [address] [phone] Stock Speculator: Ronn Arias MD Basophils/100 WBC (Bld) 0 % Normal 0-2 [facility] Comment on above: Performed By: #### L ACDS #### [address] [phone] Stock Speculator: Ronn Arias MD Eosinophils (Bld) [#/Vol] 0.12 10*3/uL Normal 0.0-0.4 [facility] Comment on above: Performed By: #### L ACDS #### [address] [phone] Stock Speculator: Ronn Arias MD Eosinophils/100 WBC (Bld) 1 % Normal 1-4 [facility] Comment on above: Performed By: #### L ACDS #### [address] [phone] Stock Speculator: Ronn Arias MD Immature granulocytes/100 WBC (Bld) 0 % Normal 0 [facility] Comment on above: Performed By: #### L ACDS #### [address] [phone] Stock Speculator: Ronn Arias MD Lymphocytes (Bld) [#/Vol] 0.37 10*3/uL Low 1.0-4.8 [facility] Comment on above: Performed By: #### L ACDS #### [address] [phone] Stock Speculator: Ronn Arias MD Lymphocytes/100 WBC (Bld) 3 % Low 24-44 [facility] Comment on above: Performed By: #### L ACDS #### [address] [phone] Stock Speculator: Ronn Arias MD Monocytes (Bld) [#/Vol] 0.49 10*3/uL Normal 0.1-0.8 [facility] Comment on above: Performed By: #### L ACDS #### [address] [phone] Stock Speculator: Ronn Arias MD Monocytes/100 WBC (Bld) 4 % Normal 1-7 [facility] Comment on above: Performed By: #### L ACDS #### [address] [phone] Stock Speculator: Ronn Arias MD Morphology Gordon (Bld) [Interp] Normal Normal [facility] Comment on above: Performed By: #### L ACDS #### [address] [phone] Stock Speculator: Ronn Arias MD Neutrophil (Seg) 92 % High 36-66 [facility] Comment on above: Performed By: #### L ACDS #### [address] [phone] Stock Speculator: Ronn Arias MD Erythrocyte distribution width (RBC) [Ratio] 14.4 % Normal 11.8-14.4 [facility] Comment on above: Performed By: #### L ACDS #### [address] [address] Stock Speculator: Ronn Arias MD Hematocrit (Bld) [Volume fraction] 30.4 % Low 40.7-50.3 [facility] Comment on above: Performed By: #### L ACDS #### [address] [phone] Stock Speculator: Ronn Arias MD Hemoglobin (Bld) [Mass/Vol] 10.2 g/dL Low 13.0-17.0 [facility] Comment on above: Performed By: #### L ACDS #### [address] [phone] Stock Speculator: Ronn Arias MD MCH (RBC) [Entitic mass] 28.0 pg Normal 25.2-33.5 [facility] Comment on above: Performed By: #### L ACDS #### [address] [address] Stock Speculator: Ronn Arias MD MCHC (RBC) [Mass/Vol] 33.6 g/dL Normal 28.4-34.8 [facility] Comment on above: Performed By: #### L ACDS #### [address] [address] Stock Speculator: Ronn Arias MD MCV (RBC) [Entitic vol] 83.5 fL Normal 82.6-102.9 [facility] Comment on above: Performed By: #### L ACDS #### [address] [address] Stock Speculator: Ronn Arias MD NRBC Automated 0.0 per [address] [facility] Comment on above: Performed By: #### L ACDS #### [address] [address] Stock Speculator: Ronn Arias MD Platelet mean volume (Bld) [Entitic vol] 10.3 fL Normal 8.1-13.5 [facility] Comment on above: Performed By: #### L ACDS #### [address] [address] Stock Speculator: Ronn Arias MD Platelets (Bld) [#/Vol] 150 10*3/uL Normal 138-453 [facility] Comment on above: Performed By: #### L ACDS #### [address] [address] Stock Speculator: Ronn Arias MD RBC (Bld) [#/Vol] 3.64 10*6/uL Low 4.21-5.77 [facility] Comment on above: Performed By: #### L ACDS #### [address] [address] Stock Speculator: Ronn Arias MD WBC (Bld) [#/Vol] 12.2 10*3/uL High 3.5-11.3 [facility] Comment on above: Performed By: #### L ACDS #### [address] [phone] Stock Speculator: Ronn Arias MD Cult,Urineon 01-02-2022 Cult,Urine Specimen Description .URINE Culture NO GROWTH Report Status FINAL 01/02/[address] [facility] Comment on above: Performed By: #### U RNA, URTPRT, UMICAO, UEOS, UA #### [facility] [address] [place], [place] [phone] Stock Speculator: Ronn Arias MD Culture, Urineon 01-02-2022 Bacteria identified Cx Nom (U) NO GROWTH [facility] Specimen Description .URINE [facility] Hepatic Function Panelon Albumin [Mass/Vol] 2.9 g/dL Low 3.5 - 5.2 g/dL [facility] Albumin/Globulin [Mass ratio] 0.9 {ratio} Low 1 - 2.5 [facility] ALP (Bld) [Catalytic activity/Vol] 96 U/L 40 - 129 U/L [facility] ALT [Catalytic activity/Vol] 123 U/L High 5 - 41 U/L [facility] AST [Catalytic activity/Vol] 50 U/L High NINF - 40 U/L [facility] Bilirubin [Mass/Vol] 1.8 mg/dL High 0.3 - 1 .2 mg/dL [facility] Bilirubin, Indirect 0.7 mg/dL 0 - 1 mg/dL [facility] Bilirubin.indirect [Mass/Vol] 1.1 mg/dL High NINF - 0.31 mg/dL [facility] Free PSA/Total PSA [Mass fraction] 6.1 g/dL Low 6.4 - 8.3 g/dL [facility] Lactate, Sepsison 01-02-2022 Lactic Acid, Sepsis, Whole Blood 1.2 mmol/L 0.5 - 1.9 mmol/L [facility] Lactic Acid,Sep Wbld 1.3 mmol/L Normal 0.5-1.9 [facility] Comment on above: Performed By: #### U RNA, URTPRT, UMICAO, UEOS, UA #### [facility] [address] [place], [place] [phone] Stock Speculator: Ronn Arias MD Lactic Acid, Sepsis, Whole Blood 1.3 mmol/L 0.5 - 1.9 mmol/L [facility] Lactic Acid,Sep Wbld 1.0 mmol/L Normal 0.5-1.9 [facility] Comment on above: Performed By: #### U RNA, URTPRT, UMICAO, UEOS, UA #### [facility] [address] [place] [address] [phone] Stock Speculator: Ronn Arias MD Lactic Acid, Sepsis, Whole Blood 1.0 mmol/L 0.5 - 1.9 mmol/L [facility] Lactic Acid,Sep Wbld 0.9 mmol/L Normal 0.5-1.9 [facility] Comment on above: Performed By: #### U RNA, URTPRT, UMICAO, UEOS, UA #### [facility] [address] [place] [phone] Stock Speculator: Ronn Arias MD Lactic Acid, Sepsis, Whole Blood 0.9 mmol/L 0.5 - 1.9 mmol/L [facility] Lipaseon 01-02-2022 Lipase [Catalytic activity/Vol] 1280 U/L High 13-60 [facility] Comment on above: Performed By: #### L IVP, BMPX, LIP, CDP #### [facility] [address] [place] [address] [phone] Stock Speculator: Ronn Arias MD Interpretation and review of laboratory results Abnormal [facility] [employer] Lipase [Catalytic activity/Vol] 1280 U/L High 13 - 60 U/L [facility] Liver Profileon 01-02-2022 Albumin [Mass/Vol] 2.9 g/dL Low 3.5-5.2 [facility] Comment on above: Performed By: #### L IVP, BMPX, LIP, CDP #### [employer] [address] [place] [phone] Stock Speculator: Ronn Arias MD Albumin/Glob Ratio 0.9 Low 1.0-2.5 [facility] Comment on above: Performed By: #### L IVP, BMPX, LIP, CDP #### [facility] [employer] [address] [place] [phone] Stock Speculator: Ronn Arias MD Alkaline Phos 96 U/L Normal 40-129 [facility] Comment on above: Performed By: #### L IVP, BMPX, LIP, CDP #### [facility] [employer] [address] [place] [phone] Stock Speculator: Ronn Arias MD ALT [Catalytic activity/Vol] 123 U/L High 5-41 [facility] Comment on above: Performed By: #### L IVP, BMPX, LIP, CDP #### [facility] [employer] [address] [place] [phone] Stock Speculator: Ronn Arias MD AST [Catalytic activity/Vol] 50 U/L High <40 [facility] Comment on above: Performed By: #### L IVP, BMPX, LIP, CDP #### [facility] [employer] [address] [place] [phone] Stock Speculator: Ronn Arias MD Bilirubin [Mass/Vol] 1.8 mg/dL High 0.3-1.2 [facility] Comment on above: Performed By: #### L IVP, BMPX, LIP, CDP #### [facility] [employer] [address] [place] [phone] Stock Speculator: Ronn Arias MD Bilirubin, Indirect 0.7 mg/dL Normal 0.00-1.00 [facility] Comment on above: Performed By: #### L IVP, BMPX, LIP, CDP #### [facility] [employer] [address] [place] [phone] Stock Speculator: Ronn Arias MD Bilirubin.indirect [Mass/Vol] 1.1 mg/dL High <0.31 [facility] Comment on above: Performed By: #### L IVP, BMPX, LIP, CDP #### [facility] [address] [place], [place] [phone] Stock Speculator: Ronn Arias MD Protein [Mass/Vol] 6.1 g/dL Low 6.4-8.3 [facility] Comment on above: Performed By: #### L IVP, BMPX, LIP, CDP #### [facility] [address] [place], [place] [phone] Stock Speculator: Ronn Arias MD No Panel Informationon 01-02 Interpretation and review of laboratory results Abnormal [facility] Protein,Tot,Cadogan Uron 2021 Tot Prot. Conc. 59 mg/dL Normal [facility] Comment on above: Result Comment: No n ormal range established. Performed By: #### U RNA, URTPRT, UMICAO, UEOS, UA #### [facility] [address] [place], [place] [phone] Stock Speculator: Ronn Arias MD Surgical Pathologyon 022 Surgical Pathology (NOTE) -- Diagnosis -- Gallbladder: - Chronic cholecystitis. - Cholelithiasis. Beth Barahona M.D. Electronically Signed Out rdd/01/03/2022 Clinical Information Pre-op Diagnosis: GALLSTONE PANCREATITIS Operative Findings: GALLBLADDER AND CONTENTS Operation Performed: LAPAROSCOPIC CHOLECYSTECTOMY Source of Specimen A: GALLBLADDER Gross Description YOLI HARMONY, GALLBLADDER AND CONTENTS 9.5 x 4.0 x [...] two black choleliths, each measuring 0.5 cm. Chief Writer sections 1c to include cystic duct margin (inked blue), fundus, body and neck. tm Microscopic Description Microscopic examination performed. SURGICAL PATHOLOGY CONSULTATION Patient Name: YOLI ANTUNEZ [facility] Rec: [id number] Path Number: [id number] [facility] [employer] [facility] ANATOMIC PATHOLOGY [address] [place] [id number] [facility] Comment on above: Performed By: #### L ACDS #### [facility] [address] [place] [address] [phone] Stock Speculator: Ronn Arias MD US RENAL LIMITEDon US [...] Naif Bean MD 01/02/[address] [facility] Unremarkable renal ultrasound. No hydronephrosis. MHPN [...] the bilateral corticomedullary differentiation. [facility] RIS CONSOLIDATED Vikas, Naif Lovell MD - 01/02/2022 EXAMINATION: ULTRASOUND OF THE [...] differentiation. IMPRESSION: Unremarkable renal ultrasound. No hydronephrosis. [employer] Work Phone: Radiology Study observation (narrative) [employer] Work Phone: RENAL LIMITEDOrdered By: Naif Bean on 01-02-2022 [employer] Work Phone: Basic Metabolic Panelon 12-21 Anion gap [Moles/Vol] 14 mmol/L 9 - 17 mmol/L [employer] Calcium [Mass/Vol] 6.4 mg/dL Low 8.6 - 10. 4 mg/dL [employer] Chloride [Moles/Vol] 106 mmol/L 98 - 10 7 mmol/L [employer] CO2 [Moles/Vol] 19 mmol/L Low 20 - 31 mmol/L [employer] Creatinine [Mass/Vol] 3.73 mg/dL High 0.7 - 1.2 mg/dL [employer] Comment on above: I[employer]CIMEN GFR 20 mL/min Low 60 - PI NF mL/min [facility] [employer] GFR Non- 16 mL/min Low 60 - PINF mL/min [facility] [employer] GFR/1.73 sq M.predicted MDRD (S/P/Bld) [Vol rate/Area] [facility] Comment on above: Average GFR for 60-6 9 years old: 85 mL/min/1.73sq m Chronic Kidney Disease: <60 mL/min/1.73sq m Kidney failure: <15 mL/min/1.73sq m eGFR calculated using average adult body mass. Additional eGFR calculator available at: http://www.Dabble DB/multiple_crcl_2012.htm Glucose [Mass/Vol] 114 mg/dL High 70 - 99 mg/dL [facility] Interpretation and review of laboratory results Abnormal [facility] Potassium [Moles/Vol] 4.4 mmol/L 3.7 - 5.3 mmol/L [facility] Sodium [Moles/Vol] 139 mmol/L 135 - 144 mmol/L [facility] Urea nitrogen (BldV) [Mass/Vol] 58 mg/dL High 8 - 23 mg/dL [facility] Basic Metabolic Profon 01-01 (cont.) Normal [facility] Comment on above: Result Comment: Aver age GFR for 60-69 years old: 85 mL/min/1.73sq m Chronic Kidney Disease: <60 mL/min/1.73sq m Kidney failure: <15 mL/min/1.73sq m eGFR calculated using average adult body mass. Additional eGFR calculator available at: http://www.Dabble [employer]/multiple_crcl_2012.htm Performed By: #### U RNA, URTPRT, Rommel RIVERSEOS, UA #### [facility] [address] [place], [place] [phone] Stock Speculator: Ronn Arias MD Anion gap [Moles/Vol] 14 mmol/L Normal - [facility] Comment on above: Performed By: #### U RNA, URTPRT, UMICAO, UEOS, UA #### [facility] [place] [phone] Stock Speculator: Ronn Arias MD Calcium [Mass/Vol] 6.4 mg/dL Low 8.6-10.4 [facility] Comment on above: Performed By: #### U RNA, URTPRT, UMICAO, UEOS, UA #### [facility] [address] [place] [phone] Stock Speculator: Ronn Arias MD Chloride [Moles/Vol] 106 mmol/L Normal 98-107 [facility] Comment on above: Performed By: #### U RNA, URTPRT, UMICAO, UEOS, UA #### [facility] [address] [place] [phone] Stock Speculator: Ronn Arias MD CO2 [Moles/Vol] 19 mmol/L Low 20-31 [facility] Comment on above: Performed By: #### U RNA, URTPRT, UMICAO, UEOS, UA #### [facility] [address] [place] [phone] Stock Speculator: Ronn Arias MD Creatinine [Mass/Vol] 3.73 mg/dL High 0.70-1.20 [facility] Comment on above: Result Comment: ICTE JAYDON SPECIMEN Performed By: #### U RNA, URTPRT, UMICAO, UEOS, UA #### [facility] [address] [place] [phone] Stock Speculator: Ronn Arias MD GFR, Amer 20 mL/min Low >60 [facility] Comment on above: Performed By: #### U RNA, URTPRT, UMICAO, UEOS, UA #### [facility] [address] [place] [phone] Stock Speculator: Ronn Arias MD GFR,non Amer 16 mL/min Low >60 [facility] Comment on above: Performed By: #### U RNA, URTPRT, UMICAO, UEOS, UA #### [facility] [employer] [address] [place] [phone] Stock Speculator: Ronn Arias MD Glucose [Mass/Vol] 114 mg/dL High 70-99 [facility] Comment on above: Performed By: #### U RNA, URTPRT, UMICAO, UEOS, UA #### [address] [phone] Stock Speculator: Ronn Arias MD Potassium [Moles/Vol] 4.4 mmol/L Normal 3.7-5.3 [facility] Comment on above: Performed By: #### U RNA, URTPRT, UMICAO, UEOS, UA #### [address] [phone] Stock Speculator: Ronn Arias MD Sodium [Moles/Vol] 139 mmol/L Normal 135-144 [facility] Comment on above: Performed By: #### U RNA, URTPRT, UMICAO, UEOS, UA #### [facility] [employer] [address] [place] [phone] Stock Speculator: Ronn Arias MD Urea nitrogen [Mass/Vol] 58 mg/dL High 8-23 [facility] Comment on above: Performed By: #### U RNA, URTPRT, UMICAO, UEOS, UA #### [facility] [employer] [address] [place] [phone] Stock Speculator: Ronn Arias MD CBCon 01-01-2022 Erythrocyte distribution width (RBC) [Ratio] 14.5 % High 11.8-14.4 [facility] Comment on above: Performed By: #### U RNA, URTPRT, UMICAO, UEOS, UA #### [facility] [employer] [address] [place] [phone] Stock Speculator: Ronn Arias MD Hematocrit (Bld) [Volume fraction] 30.0 % Low 40.7-50.3 [facility] Comment on above: Performed By: #### U RNA, URTPRT, UMICAO, UEOS, UA #### [facility] [address] [place] [phone] Stock Speculator: Ronn Arias MD Hemoglobin (Bld) [Mass/Vol] 10.0 g/dL Low 13.0-17.0 [facility] Comment on above: Performed By: #### U RNA, URTPRT, UMICAO, UEOS, UA #### [address] [phone] Stock Speculator: Ronn Arias MD MCH (RBC) [Entitic mass] 28.2 pg Normal 25.2-33.5 [facility] Comment on above: Performed By: #### U RNA, URTPRT, UMICAO, UEOS, UA #### [address] [phone] Stock Speculator: Ronn Arias MD MCHC (RBC) [Mass/Vol] 33.3 g/dL Normal 28.4-34.8 [facility] Comment on above: Performed By: #### U RNA, URTPRT, UMICAO, UEOS, UA #### [facility] [address] [place] [phone] Stock Speculator: Ronn Arias MD MCV (RBC) [Entitic vol] 84.7 fL Normal 82.6-102.9 [facility] Comment on above: Performed By: #### U RNA, URTPRT, UMICAO, UEOS, UA #### [facility] [employer] [address] [place] [phone] Stock Speculator: Ronn Arias MD NRBC Automated 0.0 per [address] [facility] Comment on above: Performed By: #### U RNA, URTPRT, UMICAO, UEOS, UA #### [facility] [place] [address] Stock Speculator: Ronn Arias MD Platelet mean volume (Bld) [Entitic vol] 11.0 fL Normal 8.1-13.5 [facility] Comment on above: Performed By: #### U RNA, URTPRT, UMICAO, UEOS, UA #### [facility] [address] [place] [phone] Stock Speculator: Ronn Arias MD Platelets (Bld) [#/Vol] 157 10*3/uL Normal 138-453 [facility] Comment on above: Performed By: #### U RNA, URTPRT, UMICAO, UEOS, UA #### [facility] [address] [place] [phone] Stock Speculator: Ronn Arias MD RBC (Bld) [#/Vol] 3.54 10*6/uL Low 4.21-5.77 [facility] Comment on above: Performed By: #### U RNA, URTPRT, UMICAO, UEOS, UA #### [facility] [address] [place] [phone] Stock Speculator: Ronn Arias MD WBC (Bld) [#/Vol] 16.8 10*3/uL High 3.5-11.3 [facility] Comment on above: Performed By: #### U RNA, URTPRT, UMICAO, UEOS, UA #### [facility] [place] [address] Stock Speculator: Ronn Arias MD Hematocrit (Bld) [Volume fraction] 30.0 % Low 40.7 - 50.3 % [facility] Hemoglobin (Bld) [Mass/Vol] 10.0 g/dL Low 13 - 17 g/dL [facility] MCH (RBC) [Entitic mass] 28.2 pg 25.2 - 33.5 pg [facility] MCHC (RBC) [Mass/Vol] 33.3 g/dL 28.4 - 34.8 g/dL [facility] MCV (RBC) [Entitic vol] 84.7 fL 82.6 - 102.9 fL [facility] NRBC Automated 0.0 0.0 per 100 WBC [facility] Platelet distribution width (Bld) [Ratio] 14.5 % High 11.8 - 14.4 % [facility] Platelet mean volume (Bld) [Entitic vol] 11.0 fL 8.1 - 13.5 fL [facility] Platelets (Bld) [#/Vol] 157 10*3/uL [facility] RBC (Bld) [#/Vol] 3.54 10*6/uL Low 4.21 - 5.77 m/uL [facility] WBC (Bld) [#/Vol] 16.8 10*3/uL High [facility] Calcium, Ionicon 01-01-2022 Calcium [Moles/Vol] 0.95 mmol/L Low 1.13-1.33 [facility] Comment on above: Performed By: #### U RNA, URTPRT, UMICAO, UEOS, UA #### [facility] [address] [place] [address] Stock Speculator: Ronn Arias MD Calcium, Ionizedon 2 Calcium, Ionized 0.95 mmol/L Low 1.13 - 1.33 mmol/L [facility] Interpretation and review of laboratory results Abnormal [facility] Comp Metabolic Pr/rfx MGon 0 01-01-2022 Creatinine [Mass/Vol] 3.74 mg/dL High 0.70-1.20 [facility] Comment on above: Result Comment: ICTE JAYDON SPECIMEN Performed By: #### U RNA, URTPRT, UMICAO, UEOS, UA #### [facility] [address] [place] [address] Stock Speculator: Ronn Arias MD GFR, Amer 20 mL/min Low >60 [facility] Comment on above: Performed By: #### U RNA, URTPRT, UMICAO, UEOS, UA #### [facility] [address] [place] [address] Stock Speculator: Ronn Arias MD GFR,non Amer 16 mL/min Low >60 [facility] Comment on above: Performed By: #### U RNA, URTPRT, UMICAO, UEOS, UA #### [facility] [place] [address] Stock Speculator: Ronn Arias MD (cont.) [facility] Comment on above: Result Comment: Aver age GFR for 60-69 years old: 85 mL/min/1.73sq m Chronic Kidney Disease: <60 mL/min/1.73sq m Kidney failure: <15 mL/min/1.73sq m eGFR calculated using average adult body mass. Additional eGFR calculator available at: http://[email or web address] Forged.Farmia/multiple_crcl_2012.htm Performed By: #### U RNA, URTPRT, UMICAO, UEOS, UA #### [facility] [place] [address] Stock Speculator: Ronn Arias MD Albumin [Mass/Vol] 3.2 g/dL Low 3.5-5.2 [facility] Comment on above: Performed By: #### U RNA, URTPRT, UMICAO, UEOS, UA #### [facility] [address] [place] [address] Stock Speculator: Ronn Arias MD Albumin/Glob Ratio 1.2 Normal 1.0-2.5 [facility] Comment on above: Performed By: #### U RNA, URTPRT, UMICAO, UEOS, UA #### [facility] [address] [place] [address] Stock Speculator: Ronn Arias MD Alkaline Phos 101 U/L Normal 40-129 [facility] Comment on above: Performed By: #### U RNA, URTPRT, UMICAO, UEOS, UA #### [facility] [address] [place] [phone] Stock Speculator: Ronn Arias MD ALT [Catalytic activity/Vol] 185 U/L High 5-41 [facility] Comment on above: Performed By: #### U RNA, URTPRT, UMICAO, UEOS, UA #### [address] [address] Stock Speculator: Ronn Arias MD Anion gap [Moles/Vol] 12 mmol/L Normal 9-17 [facility] Comment on above: Performed By: #### U RNA, URTPRT, UMICAO, UEOS, UA #### [address] [phone] Stock Speculator: Ronn Arias MD AST [Catalytic activity/Vol] 103 U/L High <40 [facility] Comment on above: Performed By: #### U RNA, URTPRT, UMICAO, UEOS, UA #### [address] [address] Stock Speculator: Ronn Arias MD Bilirubin [Mass/Vol] 4.3 mg/dL High 0.3-1.2 [facility] Comment on above: Performed By: #### U RNA, URTPRT, UMICAO, UEOS, UA #### [facility] [employer] [address] [place] [phone] Stock Speculator: Ronn Arias MD Calcium [Mass/Vol] 6.5 mg/dL Low 8.6-10.4 [facility] Comment on above: Performed By: #### U RNA, URTPRT, UMICAO, UEOS, UA #### [facility] [address] [place] [phone] Stock Speculator: Ronn Arias MD Chloride [Moles/Vol] 107 mmol/L Normal 98-107 [facility] Comment on above: Performed By: #### U RNA, URTPRT, UMICAO, UEOS, UA #### [facility] [address] [place] [phone] Stock Speculator: Ronn Arias MD CO2 [Moles/Vol] 19 mmol/L Low 20-31 [facility] Comment on above: Performed By: #### U RNA, URTPRT, UMICAO, UEOS, UA #### [facility] [employer] [address] [place] [phone] Stock Speculator: Ronn Arias MD Glucose [Mass/Vol] 109 mg/dL High 70-99 [facility] Comment on above: Performed By: #### U RNA, URTPRT, UMICAO, UEOS, UA #### [facility] [employer] [address] [place] [phone] Stock Speculator: Ronn Arias MD Potassium [Moles/Vol] 4.4 mmol/L Normal 3.7-5.3 [facility] Comment on above: Performed By: #### U RNA, URTPRT, UMICAO, UEOS, UA #### [facility] [address] [place] [phone] Stock Speculator: Ronn Arias MD Protein [Mass/Vol] 5.8 g/dL Low 6.4-8.3 [facility] Comment on above: Performed By: #### U RNA, URTPRT, UMICAO, UEOS, UA #### [facility] [address] [place] [phone] Stock Speculator: Ronn Arias MD Sodium [Moles/Vol] 138 mmol/L Normal 135-144 [facility] Comment on above: Performed By: #### U RNA, URTPRT, UMICAO, UEOS, UA #### [facility] [place] [address] Stock Speculator: Ronn Arias MD Urea nitrogen [Mass/Vol] 59 mg/dL High 8-23 [facility] Comment on above: Performed By: #### U RNA, URTPRT, UMICAO, UEOS, UA #### [facility] [address] [place] [phone] Stock Speculator: Ronn Arias MD Creatinine [Mass/Vol] 3.86 mg/dL High 0.70-1.20 [facility] Comment on above: Result Comment: ICTE JAYDON SPECIMEN Performed By: #### U RNA, URTPRT, UMICAO, UEOS, UA #### [facility] [address] [place] [phone] Stock Speculator: Ronn Arias MD GFR, Amer 19 mL/min Low >60 [facility] Comment on above: Performed By: #### U RNA, URTPRT, UMICAO, UEOS, UA #### [facility] [address] [place] [phone] Stock Speculator: Ronn Arias MD GFR,non Amer 16 mL/min Low >60 [facility] Comment on above: Performed By: #### U RNA, URTPRT, UMICAO, UEOS, UA #### [facility] [address] [place] [address] [phone] Stock Speculator: Ronn Arias MD (cont.) [facility] Comment on above: Result Comment: Aver age GFR for 60-69 years old: 85 mL/min/1.73sq m Chronic Kidney Disease: <60 mL/min/1.73sq m Kidney failure: <15 mL/min/1.73sq m eGFR calculated using average adult body mass. Additional eGFR calculator available at: http://www.Mark Forged.com/multiple_crcl_2012.htm Performed By: #### U RNA, URTPRT, UMICAO, UEOS, UA #### [facility] [employer] [address] [place] [phone] Stock Speculator: Ronn Arias MD Albumin [Mass/Vol] 3.0 g/dL Low 3.5-5.2 [facility] Comment on above: Performed By: #### U RNA, URTPRT, UMICAO, UEOS, UA #### [address] [address] Stock Speculator: Ronn Arias MD Albumin/Glob Ratio 1.2 Normal 1.0-2.5 [facility] Comment on above: Performed By: #### U RNA, URTPRT, UMICAO, UEOS, UA #### [facility] [employer] [address] [place] [phone] Stock Speculator: Ronn Arias MD Alkaline Phos 98 U/L Normal 40-129 [facility] Comment on above: Performed By: #### U RNA, URTPRT, UMICAO, UEOS, UA #### [facility] [employer] [address] [place] [phone] Stock Speculator: Ronn Arias MD ALT [Catalytic activity/Vol] 191 U/L High 5-41 [facility] Comment on above: Performed By: #### U RNA, URTPRT, UMICAO, UEOS, UA #### [facility] [employer] [address] [place] [phone] Stock Speculator: Ronn Arias MD Anion gap [Moles/Vol] 13 mmol/L Normal 9-17 [facility] Comment on above: Performed By: #### U RNA, URTPRT, UMICAO, UEOS, UA #### [address] [phone] Stock Speculator: Ronn Arias MD AST [Catalytic activity/Vol] 112 U/L High <40 [facility] Comment on above: Performed By: #### U RNA, URTPRT, UMICAO, UEOS, UA #### [address] [address] Stock Speculator: Ronn Arias MD Bilirubin [Mass/Vol] 4.5 mg/dL High 0.3-1.2 [facility] Comment on above: Performed By: #### U RNA, URTPRT, UMICAO, UEOS, UA #### [facility] [employer] [address] [place] [phone] Stock Speculator: Ronn Arias MD Calcium [Mass/Vol] 6.5 mg/dL Low 8.6-10.4 [facility] Comment on above: Performed By: #### U RNA, URTPRT, UMICAO, UEOS, UA #### [address] [address] Stock Speculator: Ronn Arias MD Chloride [Moles/Vol] 109 mmol/L High 98-107 [facility] Comment on above: Performed By: #### U RNA, URTPRT, UMICAO, UEOS, UA #### [facility] [employer] [address] [place] [phone] Stock Speculator: Ronn Arias MD CO2 [Moles/Vol] 18 mmol/L Low 20-31 [facility] Comment on above: Performed By: #### U RNA, URTPRT, UMICAO, UEOS, UA #### [facility] [employer] [address] [place] [phone] Stock Speculator: Ronn Arias MD Glucose [Mass/Vol] 106 mg/dL High 70-99 [facility] Comment on above: Performed By: #### U RNA, URTPRT, UMICAO, UEOS, UA #### [facility] [address] [place] [address] Stock Speculator: Ronn Arias MD Potassium [Moles/Vol] 4.5 mmol/L Normal 3.7-5.3 [facility] Comment on above: Performed By: #### U RNA, URTPRT, UMICAO, UEOS, UA #### [facility] [address] [place] [phone] Stock Speculator: Ronn Arias MD Protein [Mass/Vol] 5.5 g/dL Low 6.4-8.3 [facility] Comment on above: Performed By: #### U RNA, URTPRT, UMICAO, UEOS, UA #### [employer] [address] [place] [address] [phone] Stock Speculator: Ronn Arias MD Sodium [Moles/Vol] 140 mmol/L Normal 135-144 [facility] Comment on above: Performed By: #### U RNA, URTPRT, UMICAO, UEOS, UA #### [facility] [employer] [address] [place] [phone] Stock Speculator: Ronn Arias MD Urea nitrogen [Mass/Vol] 59 mg/dL High 8-23 [facility] Comment on above: Performed By: #### U RNA, URTPRT, UMICAO, UEOS, UA #### [facility] [facility] [place] [address] Stock Speculator: Ronn Arias MD Comprehensive Metabolic Pane l w/ Reflex to MGon 01-01-2022 Albumin [Mass/Vol] 3.2 g/dL Low 3.5 - 5.2 g/dL [facility] Albumin/Globulin [Mass ratio] 1.2 {ratio} 1 - 2.5 [facility] ALP (Bld) [Catalytic activity/Vol] 101 U/L 40 - 129 U/L [facility] ALT [Catalytic activity/Vol] 185 U/L High 5 - 41 U/L [facility] Anion gap [Moles/Vol] 12 mmol/L 9 - 17 mmol/L [facility] AST [Catalytic activity/Vol] 103 U/L High NINF - 40 U/L [facility] Bilirubin [Mass/Vol] 4.3 mg/dL High 0.3 - 1 .2 mg/dL [facility] Calcium [Mass/Vol] 6.5 mg/dL Low 8.6 - 10. 4 mg/dL [facility] Chloride [Moles/Vol] 107 mmol/L 98 - 10 7 mmol/L [facility] CO2 [Moles/Vol] 19 mmol/L Low 20 - 31 mmol/L [facility] Creatinine [Mass/Vol] 3.74 mg/dL High 0.7 - 1.2 mg/dL [facility] Comment on above: ICTERIC SPECIMEN Free PSA/Total PSA [Mass fraction] 5.8 g/dL Low 6.4 - 8.3 g/dL [facility] GFR 20 mL/min Low 60 - PI NF mL/min [facility] GFR Non- 16 mL/min Low 60 - PINF mL/min [facility] GFR/1.73 sq M.predicted MDRD (S/P/Bld) [Vol rate/Area] [facility] Comment on above: Average GFR for 60-6 9 years old: 85 mL/min/1.73sq m Chronic Kidney Disease: <60 mL/min/1.73sq m Kidney failure: <15 mL/min/1.73sq m eGFR calculated using average adult body mass. Additional eGFR calculator available at: http://www.Mark Forged.Farmia/multiple_crcl_2012.htm Glucose [Mass/Vol] 109 mg/dL High 70 - 99 mg/dL [facility] Interpretation and review of laboratory results Abnormal [facility] Potassium [Moles/Vol] 4.4 mmol/L 3.7 - 5.3 mmol/L [facility] Sodium [Moles/Vol] 138 mmol/L 135 - 144 mmol/L [facility] Urea nitrogen (BldV) [Mass/Vol] 59 mg/dL High 8 - 23 mg/dL [facility] Albumin [Mass/Vol] 3 g/dL Low 3.5 - 5.2 g/dL [facility] Albumin/Globulin [Mass ratio] 1.2 {ratio} 1 - 2.5 [facility] ALP (Bld) [Catalytic activity/Vol] 98 U/L 40 - 129 U/L [facility] ALT [Catalytic activity/Vol] 191 U/L High 5 - 41 U/L [facility] Anion gap [Moles/Vol] 13 mmol/L 9 - 17 mmol/L [facility] AST [Catalytic activity/Vol] 112 U/L High NINF - 40 U/L [facility] Bilirubin [Mass/Vol] 4.5 mg/dL High 0.3 - 1 .2 mg/dL [facility] Calcium [Mass/Vol] 6.5 mg/dL Low 8.6 - 10. 4 mg/dL [facility] Chloride [Moles/Vol] 109 mmol/L High 98 - 10 7 mmol/L [facility] CO2 [Moles/Vol] 18 mmol/L Low 20 - 31 mmol/L [facility] Creatinine [Mass/Vol] 3.86 mg/dL High 0.7 - 1.2 mg/dL [facility] Comment on above: ICTERIC SPECIMEN Free PSA/Total PSA [Mass fraction] 5.5 g/dL Low 6.4 - 8.3 g/dL [facility] GFR 19 mL/min Low 60 - PI NF mL/min [facility] GFR Non- 16 mL/min Low 60 - PINF mL/min [facility] GFR/1.73 sq M.predicted MDRD (S/P/Bld) [Vol rate/Area] [facility] Comment on above: Average GFR for 60-6 9 years old: 85 mL/min/1.73sq m Chronic Kidney Disease: <60 mL/min/1.73sq m Kidney failure: <15 mL/min/1.73sq m eGFR calculated using average adult body mass. Additional eGFR calculator available at: http://www.Mark Forged.com/multiple_crcl_2012.htm Glucose [Mass/Vol] 106 mg/dL High 70 - 99 mg/dL [facility] Potassium [Moles/Vol] 4.5 mmol/L 3.7 - 5.3 mmol/L [facility] Sodium [Moles/Vol] 140 mmol/L 135 - 144 mmol/L [facility] Urea nitrogen (BldV) [Mass/Vol] 59 mg/dL High 8 - 23 mg/dL [facility] Differentialon 01-01-2022 Abs. Basophil 0.03 k/uL Normal 0.00-0.20 [facility] Comment on above: Performed By: #### U RNA, URTPRT, UMICAO, UEOS, UA #### [facility] [address] [place] [phone] Stock Speculator: Ronn Arias MD Abs.Imm.Granulocyte 0.10 k/uL Normal 0.00-0.30 [facility] Comment on above: Performed By: #### U RNA, URTPRT, UMICAO, UEOS, UA #### [facility] [address] [place] [phone] Stock Speculator: Ronn Arias MD Abs.Neutrophil (Seg) 14.48 k/uL High 1.50-8.10 [facility] Comment on above: Performed By: #### U RNA, URTPRT, UMICAO, UEOS, UA #### [facility] [address] [place] [address] Stock Speculator: Ronn Arias MD Basophils/100 WBC (Bld) 0 % Normal 0-2 [facility] Comment on above: Performed By: #### U RNA, URTPRT, UMICAO, UEOS, UA #### [facility] [address] [place] [phone] Stock Speculator: Ronn Arias MD Eosinophils (Bld) [#/Vol] 0.06 10*3/uL Normal 0.00-0.44 [facility] Comment on above: Performed By: #### U RNA, URTPRT, UMICAO, UEOS, UA #### [facility] [address] [place] [phone] Stock Speculator: Ronn Arias MD Eosinophils/100 WBC (Bld) 0 % Low 1-4 [facility] Comment on above: Performed By: #### U RNA, URTPRT, UMICAO, UEOS, UA #### [place] [address] Stock Speculator: Ronn Arias MD Immature granulocytes/100 WBC (Bld) 1 % High 0 [facility] Comment on above: Performed By: #### U RNA, URTPRT, UMICAO, UEOS, UA #### [place] [address] Stock Speculator: Ronn Arias MD Lymphocytes (Bld) [#/Vol] 0.87 10*3/uL Low 1.10-3.70 [facility] Comment on above: Performed By: #### U RNA, URTPRT, UMICAO, UEOS, UA #### [address] [phone] Stock Speculator: Ronn Arias MD Lymphocytes/100 WBC (Bld) 5 % Low 24-43 [facility] Comment on above: Performed By: #### U RNA, URTPRT, UMICAO, UEOS, UA #### [facility] [employer] [address] [place] [address] Stock Speculator: Ronn Arias MD Monocytes (Bld) [#/Vol] 1.28 10*3/uL High 0.10-1.20 [facility] Comment on above: Performed By: #### U RNA, URTPRT, UMICAO, UEOS, UA #### [facility] [address] [place] [address] Stock Speculator: Ronn Arias MD Monocytes/100 WBC (Bld) 8 % Normal 3-12 [facility] Comment on above: Performed By: #### U RNA, URTPRT, UMICAO, UEOS, UA #### [facility] [address] [place] [address] Stock Speculator: Ronn Arias MD Neutrophil (Seg) 86 % High 36-65 [facility] Comment on above: Performed By: #### U RNA, URTPRT, UMICAO, UEOS, UA #### [facility] [address] [place] [address] Stock Speculator: Ronn Arias MD RBC morphology finding Nom (Bld) ANISOCYTOSIS PRESENT Normal [facility] Comment on above: Performed By: #### U RNA, URTPRT, UMICAO, UEOS, UA #### [facility] [address] [place] [address] Stock Speculator: Ronn Arias MD Absolute Eos # 0.06 [facility] Absolute Immature Granulocyte 0.10 [facility] Absolute Lymph # 0.87 Low [facility] Absolute Baraga # 1.28 High [facility] [...] 86 % High 36 - 65 % [facility] Segs Absolute 14.48 High [facility] Hemoglobin A1Con 01-01-2022 Glucose [Mass/Vol] 117 mg/dL Normal [facility] Comment on above: Result Comment: The ADA and AACC recommend providing the estimated average glucose result to permit better patient understanding of their HBA1c result. Performed By: #### U RNA, URTPRT, UMICAO, UEOS, UA #### [facility] [address] [place], [place] [phone] Stock Speculator: Ronn Arias MD HbA1c (Bld) [Mass fraction] 5.7 % Normal 4.0-6.0 [facility] Comment on above: Performed By: #### U RNA, URTPRT, UMICAO, UEOS, UA #### [facility] [address] [place], [place] [phone] Stock Speculator: Ronn Arias MD Glucose [Mass/Vol] 117 mg/dL [facility] Comment on above: The ADA and AACC rec ommend providing the estimated average glucose result to permit better patient understanding of their HBA1c result. HbA1c (Bld) [Mass fraction] 5.7 % 4 - 6 % [facility] Hepatic Function Panelon Albumin [Mass/Vol] 3.2 g/dL Low 3.5 - 5.2 g/dL [facility] Albumin/Globulin [Mass ratio] 1.3 {ratio} 1 - 2.5 [facility] ALP (Bld) [Catalytic activity/Vol] 98 U/L 40 - 129 U/L [facility] ALT [Catalytic activity/Vol] 202 U/L High 5 - 41 U/L [facility] AST [Catalytic activity/Vol] 117 U/L High NINF - 40 U/L [facility] Bilirubin [Mass/Vol] 4.4 mg/dL High 0.3 - 1 .2 mg/dL [facility] Bilirubin, Indirect 0.3 mg/dL 0 - 1 mg/dL [facility] Bilirubin.indirect [Mass/Vol] 4.1 mg/dL High NINF - 0.31 mg/dL [facility] Free PSA/Total PSA [Mass fraction] 5.6 g/dL Low 6.4 - 8.3 g/dL [facility] Interpretation and review of laboratory results Abnormal [facility] Lactate Dehydrogenaseon 12-21 LDH [Catalytic activity/Vol] 214 U/L Normal 135-225 [facility] Comment on above: Performed By: #### U RNA, URTPRT, UMICAO, UEOS, UA #### [facility] [address] [place] [phone] Stock Speculator: Ronn Airas MD LD 214 U/L 135 - 225 U/L [facility] Lactate, Sepsison 01-01-2022 Lactic Acid,Sep Wbld 1.2 mmol/L Normal 0.5-1.9 [facility] Comment on above: Performed By: #### U RNA, URTPRT, UMICAO, UEOS, UA #### [facility] [address] [place] [phone] Stock Speculator: Ronn Arias MD Lactic Acid, Sepsis, Whole Blood 1.2 mmol/L 0.5 - 1.9 mmol/L [facility] Lactic Acid,Sep Wbld 1.3 mmol/L Normal 0.5-1.9 [facility] Comment on above: Performed By: #### U RNA, URTPRT, UMICAO, UEOS, UA #### [facility] [place] [address] Stock Speculator: Ronn Arias MD Lactic Acid, Sepsis, Whole Blood 1.3 mmol/L 0.5 - 1.9 mmol/L [facility] Lactic Acid,Sep Wbld 0.9 mmol/L Normal 0.5-1.9 [facility] Comment on above: Performed By: #### U RNA, URTPRT, UMICAO, UEOS, UA #### [facility] [address] [place], [place] [phone] Stock Speculator: Ronn Arias MD Lactic Acid, Sepsis, Whole Blood 0.9 mmol/L 0.5 - 1.9 mmol/L [facility] Lactic Acid,Sep Wbld 1.3 mmol/L Normal 0.5-1.9 [facility] Comment on above: Performed By: #### U RNA, URTPRT, UMICAO, UEOS, UA #### [facility] [address] [place], [place] [phone] Stock Speculator: Ronn Arias MD Lactic Acid, Sepsis, Whole Blood 1.3 mmol/L 0.5 - 1.9 mmol/L [facility] Lipaseon 01-01-2022 Lipase [Catalytic activity/Vol] 1918 U/L High 13-60 [facility] Comment on above: Performed By: #### U RNA, URTPRT, UMICAO, UEOS, UA #### [facility] [address] [place] [address] Stock Speculator: Ronn Arias MD Lipase [Catalytic activity/Vol] 1918 U/L High 13 - 60 U/L [facility] Lipid Panelon 01-01-2022 Cholesterol [Mass/Vol] 103 mg/dL NINF - 200 mg/dL [facility] Comment on above: Cholesterol Guidelines: <200 Desirable 200-240 Borderline >240 Undesirable Cholesterol in HDL [Mass/Vol] 46 mg/dL 40 - PINF mg/dL [facility] Comment on above: HDL Guidelines: <40 Undesirable 40-59 Borderline >59 Desirable Cholesterol in LDL [Mass/Vol] 46 mg/dL 0 - 130 mg/dL [facility] [employer] Comment on above: LDL Guidelines: <100 Desirable 100-129 Near to/above Desirable 130-159 Borderline >159 Undesirable Direct (measured) LDL and calculated LDL are not interchangeable tests. Cholesterol.total/Ch olesterol in HDL [Mass ratio] 2.2 {ratio} NINF - 5 [facility] Triglyceride [Mass/Vol] 53 mg/dL NINF - 150 mg/dL [facility] Comment on above: Triglyceride Guidelines: <150 Desirable 150-199 Borderline 200-499 High >499 Very high Based on AHA Guidelines for fasting triglyceride, January 2012. [facility] Lipid Profileon 01-01-2022 Cholesterol [Mass/Vol] 103 mg/dL Normal <200 [facility] Comment on above: Result Comment: Cholesterol Guidelines: <200 Desirable 200-240 Borderline >240 Undesirable Performed By: #### U RNA, URTPRT, UMICAO, UEOS, UA #### [facility] [address] [place], [place] [phone] Stock Speculator: Ronn Arias MD Cholesterol in HDL [Mass/Vol] 46 mg/dL Normal >40 [facility] Comment on above: Result Comment: HDL Guidelines: <40 Undesirable 40-59 Borderline >59 Desirable Performed By: #### U RNA, URTPRT, UMICAO, UEOS, UA #### [facility] [address] [place], [place] [phone] Stock [employer]culator: Ronn Arias MD Cholesterol in LDL [Mass/Vol] 46 mg/dL Normal 0-130 [facility] Comment on above: Result Comment: LDL Guidelines: <100 Desirable 100-129 Near to/above Desirable 130-159 Borderline >159 Undesirable Direct (measured) LDL and calculated LDL are not interchangeable tests. Performed By: #### U RNA, URTPRT, UMICAO, UEOS, UA #### [facility] [address] [place] [phone] Stock [employer]: Ronn Arias MD Cholesterol.total/Ch olesterol in HDL [Mass ratio] 2.2 {ratio} Normal <5 [facility] Comment on above: Performed By: #### U RNA, URTPRT, UMICAO, UEOS, UA #### [facility] [address] [place], [place] [phone] Stock [employer]: Ronn Arias MD Triglyceride [Mass/Vol] 53 mg/dL Normal <150 [facility] Comment on above: Result Comment: Triglyceride Guidelines: <150 Desirable 150-199 Borderline 200-499 High >499 Very high Based on AHA Guidelines for fasting triglyceride, January 2012. Performed By: #### U RNA, URTPRT, UMICAO, UEOS, UA #### [facility] [address] [place] [phone] Stock Speculator: Ronn Arias MD Liver Profileon 01-01-2022 Albumin [Mass/Vol] 3.2 g/dL Low 3.5-5.2 [facility] Comment on above: Performed By: #### U RNA, URTPRT, UMICAO, UEOS, UA #### [facility] [employer] [address] [place] [phone] Stock Speculator: Ronn Arias MD Albumin/Glob Ratio 1.3 Normal 1.0-2.5 [facility] Comment on above: Performed By: #### U RNA, URTPRT, UMICAO, UEOS, UA #### [facility] [employer] [address] [place] [phone] Stock Speculator: Ronn Arias MD Alkaline Phos 98 U/L Normal 40-129 [facility] Comment on above: Performed By: #### U RNA, URTPRT, UMICAO, UEOS, UA #### [facility] [address] [place] [phone] Stock [employer]: Ronn Arias MD ALT [Catalytic activity/Vol] 202 U/L High 5-41 [facility] Comment on above: Performed By: #### U RNA, URTPRT, UMICAO, UEOS, UA #### [facility] [employer] [address] [place] [phone] Stock Speculator: Ronn Arias MD AST [Catalytic activity/Vol] 117 U/L High <40 [facility] Comment on above: Performed By: #### U RNA, URTPRT, UMICAO, UEOS, UA #### [facility] [address] [place] [phone] Stock Speculator: Ronn Arias MD Bilirubin [Mass/Vol] 4.4 mg/dL High 0.3-1.2 [facility] Comment on above: Performed By: #### U RNA, URTPRT, UMICAO, UEOS, UA #### [facility] [address] [place] [phone] Stock Speculator: Ronn Arias MD Bilirubin, Indirect 0.3 mg/dL Normal 0.00-1.00 [facility] Comment on above: Performed By: #### U RNA, URTPRT, UMICAO, UEOS, UA #### [facility] [address] [place] [phone] Stock [employer]culator: Ronn Arias MD Bilirubin.indirect [Mass/Vol] 4.1 mg/dL High <0.31 [facility] Comment on above: Performed By: #### U RNA, URTPRT, UMICAO, UEOS, UA #### [facility] [address] [place] [phone] Stock Speculator: Ronn Arias MD Protein [Mass/Vol] 5.6 g/dL Low 6.4-8.3 [facility] Comment on above: Performed By: #### U RNA, URTPRT, UMICAO, UEOS, UA #### [facility] [employer] [address] [place] [phone] Stock Speculator: Ronn Arias MD MRI ABDOMEN WO CONTRAST [...] Aliya Salgado MD 01/01/[address] [facility] 1. Christen pancreatic inflammation suggestive of acute pancreatitis. No pancreatic duct dilatation. 2. Cholelithiasis without evidence for acute cholecystitis, biliary dilatation or choledocholithiasis. [facility] RIS CONSOLIDATED EXAMINATION: MRI OF THE ABDOMEN [...] findings do not require dedicated imaging follow-up. [facility] RIS CONSOLIDATED Aliya Salgado MD - [...] for acute cholecystitis, biliary dilatation or choledocholithiasis. [employer] Work Phone: Radiology Study observation (narrative) [employer] Work Phone: MRI ABDOMEN WO CONTRAST MRCP Ordered By: Aliya Salgado on 01-01-2022 [employer] Work Phone: Magnesiumon 01-01-2022 Magnesium [Mass/Vol] 1.7 mg/dL Normal 1.6-2.6 [facility] Comment on above: Performed By: #### U RNA, URTPRT, UMICAO, UEOS, UA #### [facility] [address] [place] [address] [phone] Stock Speculator: Ronn Arias MD Magnesium [Mass/Vol] 1.7 mg/dL 1.6 - 2 .6 mg/dL [facility] [employer] Magnesium [Mass/Vol] 1.7 mg/dL Normal 1.6-2.6 [facility] Comment on above: Performed By: #### U RNA, URTPRT, UMICAO, UEOS, UA #### [facility] [address] [place], [place] [phone] Stock [employer]culator: Ronn Arias MD Magnesium [Mass/Vol] 1.7 mg/dL 1.6 - 2 .6 mg/dL [facility] No Panel Informationon 01-01 Interpretation and review of laboratory results Abnormal [facility] [employer] [facility] [employer] Interpretation and review of laboratory results Abnormal [facility] PTon 01-01-2022 INR Coag (PPP) [Relative time] 1.2 {INR} Normal [facility] Comment on above: Result Comment: Therapeutic Range: Moderate Anticoagulant Intensity: INR = 2.0-3.0 High Anticoagulant Intensity: INR = 2.5-3.5 Performed By: #### U RNA, URTPRT, UMICAO, UEOS, UA #### [facility] [address] [place], [place] [phone] Stock Speculator: Ronn Arias MD PT Coag (PPP) [Time] 12.7 s High 9.1-12.3 [facility] Comment on above: Performed By: #### U RNA, URTPRT, UMICAO, UEOS, UA #### [facility] [address] [place], [place] [phone] Stock Speculator: Ronn Arias MD Phosphoruson 01-01-2022 Phosphate [Mass/Vol] 3.0 mg/dL 2.5 - 4 .5 mg/dL [facility] Phosphorus, Inorg.on 022 Phosphorus, Inorg. 3.0 mg/dL Normal 2.5-4.5 [facility] Comment on above: Performed By: #### U RNA, URTPRT, UMICAO, UEOS, UA #### [facility] [address] [place], [place] [phone] Stock Speculator: Ronn Arias MD Procalcitoninon 01-01-2022 Procalcitonin 67.66 ng/mL High <0.09 [facility] Comment on above: Result Comment: Suspected [...] entered into the Change in Procalcitonin Calculator (www.guzoza-ryw-ekfkalmhig.Farmia) to determine the patient's Mortality Risk Prognosis In healthy neonates, plasma Procalcitonin (PCT) concentrations increase gradually after , reaching peak values at about 24 hours of age then decrease to normal values below 0.5 ng/mL by 48-72 hours of age. Performed By: #### U RNA, URTPRT, UMICAO, UEOS, UA #### [facility] [address] [place] [phone] Stock Speculator: Ronn Arias MD Interpretation and review of laboratory results Abnormal [facility] [employer] Procalcitonin 67.66 ng/mL High NINF - 0.09 ng/mL [facility] Comment on above: Suspected Sepsis: <0.50 ng/mL [...] entered into the Change in Procalcitonin Calculator (www.ggurxz-axp-crmkcmppey.Farmia) to determine the patient's Mortality Risk Prognosis In healthy neonates, plasma Procalcitonin (PCT) concentrations increase gradually after , reaching peak values at about 24 hours of age then decrease to normal values below 0.5 ng/mL by 48-72 hours of age. Protein, urine, randomon Protein (U) [Mass/Vol] 59 mg/dL [employer] Comment on above: No normal range esta blished. [employer] [facility] Protime-INRon 01-01-2022 INR Coag (Bld) [Relative time] 1.2 {INR} [facility] Comment on above: Therapeutic Range: Moderate Anticoagulant Intensity: INR = 2.0-3.0 High Anticoagulant Intensity: INR = 2.5-3.5 Interpretation and review of laboratory results Abnormal [facility] PT Coag (PPP) [Time] 12.7 s High [facility] Sodium, Random Uron 01-02-20 Sodium (U) [Moles/Vol] 37 mmol/L Normal [facility] Comment on above: Result Comment: No n ormal range established. Performed By: #### U RNA, URTPRT, UMICAO, UEOS, UA #### [facility] [address] [place] [phone] Stock Speculator: Ronn Arias MD Sodium, urine, randomon 12-21 Sodium (U) [Moles/Vol] 37 mmol/L [facility] Comment on above: No normal range esta blished. [facility] Triglycerideon 01-01-2022 Triglyceride [Mass/Vol] 58 mg/dL NINF - 150 mg/dL [facility] Comment on above: Triglyceride Guidelines: <150 Desirable 150-199 Borderline 200-499 High >499 Very high Based on AHA Guidelines for fasting triglyceride, January 2012. Triglycerideson 01-01-2022 Triglyceride [Mass/Vol] 58 mg/dL Normal <150 [facility] Comment on above: Result Comment: Triglyceride Guidelines: <150 Desirable 150-199 Borderline 200-499 High >499 Very high Based on AHA Guidelines for fasting triglyceride, January 2012. Performed By: #### U RNA, URTPRT, UMICAO, UEOS, UA #### [facility] [address] [place] [phone] Stock Speculator: Ronn Arias MD Troponinon 01-01-2022 Troponin, High Sens 19 ng/L Normal 0-22 [facility] Comment on above: Result Comment: High Sensitivity Troponin values cannot be compared with other Troponin methodologies. Patients with high levels of Biotin oral intake (i.e >5mg/day) may have falsely decreased Troponin levels. Samples collected within 8 hours of biotin intake may require additional information for diagnosis. Performed By: #### U RNA, URTPRT, UMICAO, UEOS, UA #### [facility] [address] [place] [phone] Stock Speculator: Ronn Arias MD Troponin, High Sensitivity 19 ng/L 0 - 22 ng/L [facility] [employer] Comment on above: High Sensitivity Troponin values cannot be compared with other Troponin methodologies. Patients with high levels of Biotin oral intake (i.e >5mg/day) may have falsely decreased Troponin levels. Samples collected within 8 hours of biotin intake may require additional information for diagnosis. [facility] Troponin, High Sens 17 ng/L Normal 0-22 [facility] Comment on above: Result Comment: High Sensitivity Troponin values cannot be compared with other Troponin methodologies. Patients with high levels of Biotin oral intake (i.e >5mg/day) may have falsely decreased Troponin levels. Samples collected within 8 hours of biotin intake may require additional information for diagnosis. Performed By: #### U RNA, URTPRT, UMICAO, UEOS, UA #### [facility] [address] [place], [place] [phone] Stock Speculator: Ronn Arais MD Troponin, High Sensitivity 17 ng/L 0 - 22 ng/L [facility] [employer] Comment on above: High Sensitivity Troponin values cannot be compared with other Troponin methodologies. Patients with high levels of Biotin oral intake (i.e >5mg/day) may have falsely decreased Troponin levels. Samples collected within 8 hours of biotin intake may require additional information for diagnosis. [facility] Troponin, High Sens 18 ng/L Normal 0-22 [facility] Comment on above: Result Comment: High Sensitivity Troponin values cannot be compared with other Troponin methodologies. Patients with high levels of Biotin oral intake (i.e >5mg/day) may have falsely decreased Troponin levels. Samples collected within 8 hours of biotin intake may require additional information for diagnosis. Performed By: #### U RNA, URTPRT, UMICAO, UEOS, UA #### [facility] [address] [place], [place] [phone] Stock Speculator: Ronn Arias MD Troponin, High Sens 18 ng/L Normal 0-22 [facility] Comment on above: Result Comment: High Sensitivity Troponin values cannot be compared with other Troponin methodologies. Patients with high levels of Biotin oral intake (i.e >5mg/day) may have falsely decreased Troponin levels. Samples collected within 8 hours of biotin intake may require additional information for diagnosis. Performed By: #### U RNA, URTPRT, UMICAO UEOS, UA #### [facility] [address] [place], [place] [phone] Stock Speculator: Ronn Arias MD Troponin, High Sensitivity 18 ng/L 0 - 22 ng/L [facility] Comment on above: High Sensitivity Troponin values cannot be compared with other Troponin methodologies. Patients with high levels of Biotin oral intake (i.e >5mg/day) may have falsely decreased Troponin levels. Samples collected within 8 hours of biotin intake may require additional information for diagnosis. [facility] [employer] Troponin, High Sensitivity 18 ng/L 0 - 22 ng/L [facility] Comment on above: High Sensitivity Troponin values cannot be compared with other Troponin methodologies. Patients with high levels of Biotin oral intake (i.e >5mg/day) may have falsely decreased Troponin levels. Samples collected within 8 hours of biotin intake may require additional information for diagnosis. Troponin, High Sens 18 ng/L Normal 0-22 [facility] Comment on above: Result Comment: High Sensitivity Troponin values cannot be compared with other Troponin methodologies. Patients with high levels of Biotin oral intake (i.e >5mg/day) may have falsely decreased Troponin levels. Samples collected within 8 hours of biotin intake may require additional information for diagnosis. Performed By: #### U RNA, URTPRT, SERGEYICAO UEOS, UA #### [facility] [address] [place] [phone] Stock Speculator: Ronn Arias MD Troponin, High Sens 17 ng/L Normal 0-22 [facility] Comment on above: Result Comment: High Sensitivity Troponin values cannot be compared with other Troponin methodologies. Patients with high levels of Biotin oral intake (i.e >5mg/day) may have falsely decreased Troponin levels. Samples collected within 8 hours of biotin intake may require additional information for diagnosis. Performed By: #### U RNA, URTPRT, UMICAO UEOS, UA #### [facility] [address] [place], [place] [phone] Stock Speculator: Ronn Arias MD Troponin, High Sensitivity 18 ng/L 0 - 22 ng/L [facility] [employer] Comment on above: High Sensitivity Troponin values cannot be compared with other Troponin methodologies. Patients with high levels of Biotin oral intake (i.e >5mg/day) may have falsely decreased Troponin levels. Samples collected within 8 hours of biotin intake may require additional information for diagnosis. [facility] Troponin, High Sens 15 ng/L Normal 0-22 [facility] Comment on above: Result Comment: High Sensitivity Troponin values cannot be compared with other Troponin methodologies. Patients with high levels of Biotin oral intake (i.e >5mg/day) may have falsely decreased Troponin levels. Samples collected within 8 hours of biotin intake may require additional information for diagnosis. Performed By: #### U RNA, URTPRT, UMICAO, UEOS, UA #### [facility] [address] [place], [place] [phone] Stock Speculator: Ronn Arias MD Troponin, High Sensitivity 17 ng/L 0 - 22 ng/L [facility] Comment on above: High Sensitivity Troponin values cannot be compared with other Troponin methodologies. Patients with high levels of Biotin oral intake (i.e >5mg/day) may have falsely decreased Troponin levels. Samples collected within 8 hours of biotin intake may require additional information for diagnosis. [facility] Troponin, High Sensitivity 15 ng/L 0 - 22 ng/L [facility] [employer] Comment on above: High Sensitivity Troponin values cannot be compared with other Troponin methodologies. Patients with high levels of Biotin oral intake (i.e >5mg/day) may have falsely decreased Troponin levels. Samples collected within 8 hours of biotin intake may require additional information for diagnosis. [employer] UA w/Reflex Cultureon 2021 Bilirubin, SemiQt,Ur MOD Abnormal NEG [facility] Comment on above: Performed By: #### U RNA, URTPRT, UMICAO, UEOS, UA #### [facility] [address] [place] [phone] Stock Speculator: Ronn Arias MD Blood, Urine SMALL Abnormal NEG [facility] Comment on above: Performed By: #### U RNA, URTPRT, UMICAO, UEOS, UA #### [facility] [address] [place] [phone] Stock Speculator: Ronn Arias MD Clarity (U) Turbid Abnormal CLEAR [facility] Comment on above: Performed By: #### U RNA, URTPRT, UMICAO, UEOS, UA #### [address] [phone] Stock Speculator: Ronn Arias MD Color (U) Dark Yellow Abnormal YEL [facility] Comment on above: Performed By: #### U RNA, URTPRT, UMICAO, UEOS, UA #### [address] [phone] Stock Speculator: Ronn Arias MD Glucose Ql (U) Negative Normal NEG [facility] Comment on above: Performed By: #### U RNA, URTPRT, UMICAO, UEOS, UA #### [facility] [employer] [address] [place] [phone] Stock Speculator: Ronn Arias MD Ketones Ql (U) Negative Normal NEG [facility] Comment on above: Performed By: #### U RNA, URTPRT, UMICAO, UEOS, UA #### [facility] [address] [place] [phone] Stock Speculator: Ronn Arias MD Leukocyte esterase Test strip Ql (U) Negative Normal NEG [facility] Comment on above: Performed By: #### U RNA, URTPRT, UMICAO, UEOS, UA #### [address] [phone] Stock Speculator: Ronn Arias MD Nitrite,Ur Negative Normal NEG [facility] Comment on above: Performed By: #### U RNA, URTPRT, UMICAO, UEOS, UA #### [address] [phone] Stock Speculator: Ronn Arias MD PH,Ur 5.0 Normal 5.0-8.0 [facility] Comment on above: Performed By: #### U RNA, URTPRT, UMICAO, UEOS, UA #### [address] [phone] Stock Speculator: Ronn Arias MD Protein Ql (U) 1+ Abnormal NEG [facility] Comment on above: Performed By: #### U RNA, URTPRT, UMICAO, UEOS, UA #### [facility] [employer] [address] [place] [phone] Stock Speculator: Ronn Arias MD Spec. [place],Ur 1.013 Normal 1.005-1.[address] [facility] Comment on above: Performed By: #### U RNA, URTPRT, UMICAO, UEOS, UA #### [address] [phone] Stock Speculator: Ronn Arias MD Urobilinogen,Ur Normal Normal NORM [facility] Comment on above: Performed By: #### U RNA, URTPRT, UMICAO, UEOS, UA #### [facility] [employer] [address] [place] [phone] Stock Speculator: Ronn Arias MD Urinalysis with Reflex to Cu ltureon 01-01-2022 Bilirubin Urine MOD Abnormal NEGATIVE [facility] Color, UA Dark Yellow Abnormal Yellow [facility] Glucose, Ur Negative NEGATIVE [facility] Interpretation and review of laboratory results Abnormal [facility] Ketones Ql (U) Negative NEGATIVE [facility] Leukocyte esterase Test strip Ql (U) Negative NEGATIVE [facility] Nitrite, Urine Negative NEGATIVE [facility] pH, UA 5.0 5 - 8 [facility] Protein, UA 1+ Abnormal NEGATIVE [facility] Specific [place], UA 1.013 1.005 - 1.03 [facility] Turbidity UA Turbid Abnormal Clear [facility] Urine Hgb SMALL Abnormal NEGATIVE [facility] Urobilinogen, Urine Normal Normal [facility] Urinalysis, Microon 01-02-20 22 Casts UA 20 TO 50 [facility] Casts UA COARSELY GRANULAR [facility] Epithelial Cells UA 5 TO 10 [facility] RBC, UA 10 TO 20 [facility] WBC, UA 10 TO 20 [facility] Urinalysis,Microon 2 Casts 20 TO 50 Normal 0-2 [facility] Comment on above: Result Comment: COAR ASHLEY LEDESMA Performed By: #### U RNA, URTPRT, UMICAO, UEOS, UA #### [facility] [address] [place], [place] [phone] Stock [employer]culator: Ronn Arias MD Epithelial cells LM Ql (Urine sed) 5 TO 10 Normal 0-5 [facility] Comment on above: Performed By: #### U RNA, URTPRT, UMICAO, UEOS, UA #### [facility] [address] [place], [place] [phone] Stock Speculator: Ronn Arias MD Urine RBC's 10 TO 20 Normal 0-2 [facility] Comment on above: Performed By: #### U RNA, URTPRT, UMICAO, UEOS, UA #### [facility] [address] [place], [place] [phone] Stock Speculator: Ronn Arias MD Urine WBC's 10 TO 20 Normal 0-5 [facility] Comment on above: Performed By: #### U RNA, URTPRT, UMICAO, UEOS, UA #### [facility] [address] [place] [phone] Stock Speculator: Ronn Arias MD CBC AUTO DIFFon 12-31-2021 BASO # 0.1 103/ul Normal 0.0-0.1 [facility] Comment on above: Performed By: #### H STROPN #### [facility] [address] [address] [address] Kulwant Brennan Basophils/100 WBC (Bld) 0.2 % Normal 0.2-2.0 [facility] Comment on above: Performed By: #### H STROPN #### [facility] [address] [address] [address] Kulwant Brennan EO # 0.0 103/ul Normal 0.0-0.7 [facility] Comment on above: Performed By: #### H STROPN #### [facility] [address] [address] [address] Kulwant Brennan Eosinophils/100 WBC (Bld) 0.0 % Critically low 0.9-7.0 [facility] Comment on above: Performed By: #### H STROPN #### [facility] [address] [address] [address] Kulwant Brennan Erythrocyte distribution width (RBC) [Ratio] 14.4 % Normal 11.0-15.0 [facility] Comment on above: Performed By: #### H STROPN #### [facility] [address] [address] [address] Kulwant Brennan Hematocrit (Bld) [Volume fraction] 37.9 % Critically low 42.0-54.0 [facility] Comment on above: Performed By: #### H STROPN #### [facility] [address] [address] [address] Kulwant Brennan Hemoglobin (Bld) [Mass/Vol] 12.2 g/dL Critically low 14.0-18.0 [facility] Comment on above: Performed By: #### H STROPN #### [facility] [address] [address] [address] Kulwant Brennan IG # 0.16 10e3/ul Critically high 0.00-0.03 [facility] Comment on above: Performed By: #### H STROPN #### [facility] [address] [address] [address] Kulwant Brennan IG % 0.6 % Critically high 0.0-0.5 [facility] Comment on above: Performed By: #### H STROPN #### [facility] [address] [address] [address] Kulwant Brennan LYMPH # 0.7 103/ul Critically low 1.2-3.8 [facility] Comment on above: Performed By: #### H STROPN #### [facility] [address] [place] [address] Dr. Kulwant Brennan Lymphocytes/100 WBC (Bld) 2.9 % Critically low 20.5-60.0 [facility] Comment on above: Performed By: #### H STROPN #### [facility] [address] [place] [address] Dr. Kulwant Brennan MANUAL DIFF REQ NO Normal [facility] Comment on above: Performed By: #### H STROPN #### [facility] [address] [address] [address] Kulwant Brennan MCH (RBC) [Entitic mass] 27.7 pg Normal 25.9-34.0 [facility] Comment on above: Performed By: #### H STROPN #### [facility] [address] [address] [address] Kulwant Brennan MCHC (RBC) [Mass/Vol] 32.2 g/dL Normal 29.9-35.2 [facility] Comment on above: Performed By: #### H STROPN #### [facility] [address] [place] [address] Dr. Kulwant Brennan MCV (RBC) [Entitic vol] 86.1 fL Normal 80.0-94.0 [facility] Comment on above: Performed By: #### H STROPN #### [facility] [address] [address] [address] Kulwant Brennan MONO # 1.6 103/ul Critically high 0.3-0.8 [facility] Comment on above: Performed By: #### H STROPN #### [facility] [address] [address] [address] Kulwant Brennan Monocytes/100 WBC (Bld) 6.4 % Normal 1.7-12.0 [facility] Comment on above: Performed By: #### H STROPN #### [facility] [address] [address] [address] Kulwant Brennan NEUT # 22.8 103/ul Critically high 1.4-6.5 [facility] Comment on above: Performed By: #### H STROPN #### [facility] [address] [address] [address] Kulwant Brennan Neutrophils/100 WBC (Bld) 89.9 % Critically high 43.0-75.0 [facility] Comment on above: Performed By: #### H STROPN #### [facility] [address] [place] [address] Dr. Kulwant Brennan Platelet mean volume (Bld) [Entitic vol] 10.0 fL Normal 9.5-13.5 [facility] Comment on above: Performed By: #### H STROPN #### [facility] [address] [address] [address] Kulwant Brennan PLT 211 103/ul Normal 150-450 The [facility] Comment on above: Performed By: #### H STROPN #### [facility] [address] [address] [address] Kulwant Brennan RBC 4.40 106/ul Critically low 4.70-6.10 [facility] Comment on above: Performed By: #### H STROPN #### [facility] [address] [address] [address] Kulwant Brennan WBC 25.3 103/ul Critically high 4.0-11.0 [facility] Comment on above: Performed By: #### H STROPN #### [facility] [address] [address] [address] Kulwant Brennan CULTURE BLOODon 12-31-2021 Microscopic examination of blood, culture Culture Observations: NO GROWTH AT 5 DAYS. Normal The [facility] Comment on above: Performed By: #### B LDCX2 ####[facility] [address] [address]DrAmarjit Brennan Performed By: #### B LDCX1 ####[facility] [address] [address]DrAmarjit Brennan CULTURE URINEon 12-31-2021 CULTURE URINE Culture Observations : MODERATE GROWTH OF MIXED SKIN MITA. NO POTENTIAL PATHOGENS SEEN. Normal [facility] Comment on above: Performed By: #### U RCX ####[facility] [address] [address]Dr. Kulwant Brennan Covid-19 PCR (CVDTB)on 12-21 SARS-CoV-2 (COVID-19) RNA MIKE+probe Ql (Unsp spec) Not detected Normal NOT DETECTED The [facility] Comment on above: Result Comment: When diagnostic [...] for this test is supported by the [place] of Health and Human Service's declaration that [...] be used). Performed By: #### C VDTBH ####[facility] [address] [address]Dr. Kulwant Brennan ER URINE PROFILEon 2 Bilirubin Ql (U) MODERATE Abnormal NEGATIVE The [facility] Comment on above: Performed By: #### ANA LAURA VARELA ####[facility] [address] [address]Dr. Kulwant Brennan Clarity (U) CLEAR Normal CLEAR The [facility] Comment on above: Performed By: #### ANA LAURA VARELA ####[facility] [address] [place], [place] [address]Dr. Kulwant Brennan Color (U) DK. ORANGE Abnormal YELLOW The [facility] Comment on above: Performed By: #### ANA LAURA VARELA ####[facility] [address] [place], [place] [address]Dr. Kulwant MCGINNISD A micrscopic examina tion will be performed if indicated. Normal The [facility] Comment on above: Performed By: #### ANA LAURA VARELA ####[facility] [address] [place], [place] [address]Dr. Kulwant Brennan Glucose Ql (U) Negative Normal NEGATIVE The [facility] Comment on above: Performed By: #### ANA LAURA VARELA ####[facility] [address] [place], [place] [address]Dr. Kulwant Brennan Hemoglobin Ql (U) SMALL Abnormal NEGATIVE The [facility] Comment on above: Performed By: #### ANA LAURA VARELA ####[facility] [address] [place], [place] [address]Dr. Kulwant Brennan Ketones Ql (U) Negative Normal NEGATIVE The [facility] Comment on above: Performed By: #### MICHELLE VARELARO ####[facility] [address] [place], [place] [address]Dr. Kulwant Brennan LEUKOCYTES Negative Normal NEGATIVE The [facility] Comment on above: Performed By: #### ANA LAURA VARELA ####[facility] [address] [place], [place] [address]Dr. Kulwant Brennan Nitrite Ql (U) Positive Abnormal NEGATIVE The [facility] Comment on above: Performed By: #### MICHELLE VARELARO ####[facility] [address] [address]Dr. Kulwant Brennan pH (U) 5.5 [pH] Normal 5-9 [facility] Comment on above: Performed By: #### MICHELLE VARELARO ####[facility] [address] [address]Dr. Kulwant Brennan Protein (U) [Mass/Vol] 100 mg/dL Abnormal NEGATIVE/ TRACE The [facility] Comment on above: Performed By: #### MICHELLE VARELARO ####[facility] [address] [address]DrAmarjit Brennan SPEC GRAVITY 1.020 Normal 1.005-<=1. 025 [facility] Comment on above: Performed By: #### SERGEY VARELAICRO ####[facility] [address] [address]DrAmarjit Brennan UR MICRO IND INDICATED Normal [facility] Comment on above: Performed By: #### MICHELLE VARELARO ####[facility] [address] [address]Dr. Kulwant Brennan Urobilinogen Qn (U) 1.0 {Luis'U}/dL Normal 0.2 - 1. 0 [facility] Comment on above: Performed By: #### SERGEY VARELAICRO ####[facility] [address] [address]DrAmarjit Brennan LACTATE/LACTIC ACIDon 2021 Lactate [Moles/Vol] 1.6 mmol/L Normal 0.4-1.9 [facility] Comment on above: Performed By: #### L ACT #### [facility] [address] [address] [address] Kulwant Brennan Lactate [Moles/Vol] 2.4 mmol/L Critically high 0.4-1.9 [facility] Comment on above: Performed By: #### L ACT ####[facility] [address] [place], [place] [address]Dr. Kulwant Brennan LIPASEon 12-31-2021 Lipase [Catalytic activity/Vol] 6610.0 U/L Critically high 73.0-393.0 [facility] Comment on above: Performed By: #### L ACT #### [facility] [address] [place] [address] Dr. Kulwant Brennan PROF 14(COMP METB)on 022 Albumin [Mass/Vol] 3.3 g/dL Critically low 3.4-5.0 Th [facility] Comment on above: Performed By: #### L ACT #### [facility] [address] [place] [address] Dr. Kulwant Brennan Albumin/Globulin [Mass ratio] 0.9 {ratio} Normal [facility] Comment on above: Performed By: #### L ACT #### [facility] [address] [place] [address] Dr. Kulwant Brennan ALP [Catalytic activity/Vol] 124 U/L Critically high 46-116 [facility] Comment on above: Performed By: #### L ACT #### [facility] [address] [address] [address] Kulwant Brennan ALT [Catalytic activity/Vol] 327 U/L Critically high 16-63 [facility] Comment on above: Performed By: #### L ACT #### [facility] [address] [address] [address] Kulwant Brennan Anion gap [Moles/Vol] 15.6 mmol/L Normal [facility] Comment on above: Performed By: #### L ACT #### [facility] [address] [address] [address] Kulwant Brennan AST [Catalytic activity/Vol] 229 U/L Critically high 15-37 [facility] Comment on above: Performed By: #### L ACT #### [facility] [address] [address] [address] Kulwant Brennan Bilirubin [Mass/Vol] 6.2 mg/dL Critically high 0.2-1.0 [facility] Comment on above: Performed By: #### L ACT #### [facility] [address] [address] [address] Kulwant Brennan Calcium [Mass/Vol] 7.2 mg/dL Critically low 8.5-10.1 Th [facility] Comment on above: Performed By: #### L ACT #### [facility] [address] [address] [address] Kulwant Brennan Chloride [Moles/Vol] 102 mmol/L Normal 98-107 [facility] Comment on above: Performed By: #### L ACT #### [facility] [address] [address] [address] Kulwant Brennan CO2 [Moles/Vol] 26.4 mmol/L Normal 21.0-32.0 [facility] Comment on above: Performed By: #### L ACT #### [facility] [address] [place] [address] Dr. Kulwant Brennan Creatinine [Mass/Vol] 3.33 mg/dL Critically high 0.70-1.30 [facility] Comment on above: Performed By: #### L ACT #### [facility] [address] [place] [address] Dr. Kulwant Brennan EGFR-AF CZECH 22 mL/min/1.73m2 Critically low >=60 [facility] Comment on above: Performed By: #### L ACT #### [facility] [address] [place] [address] Dr. Kulwant Brennan EGFR-NON AF CZECH 19 mL/min/1.73m2 Critically low >=60 [facility] Comment on above: Performed By: #### L ACT #### [facility] [address] [place] [address] Dr. Kulwant Brennan Globulin (S) [Mass/Vol] 3.8 g/dL Normal [facility] Comment on above: Performed By: #### L ACT #### [facility] [address] [address] [address] Kulwant Brennan Glucose [Mass/Vol] 245 mg/dL Critically high 74-106 [facility] Comment on above: Performed By: #### L ACT #### [facility] [address] [place] [address] Dr. Kulwant Brennan Potassium [Moles/Vol] 5.0 mmol/L Normal 3.5-5.1 The [facility] Comment on above: Performed By: #### L ACT #### [facility] [address] [address] [address] Kulwant Brennan Protein [Mass/Vol] 7.1 g/dL Normal 6.4-8.2 The [facility] Comment on above: Performed By: #### L ACT #### [facility] [address] [address] [address] Kulwant Brennan Sodium [Moles/Vol] 139 mmol/L Normal 136-145 The [facility] Comment on above: Performed By: #### L ACT #### [facility] [address] [address] [address] Kulwant Brennan Urea nitrogen [Mass/Vol] 51.0 mg/dL Critically high 7.0-18.0 [facility] Comment on above: Performed By: #### L ACT #### [facility] [address] [place] [address] Dr. Kulwant Brennan Urea nitrogen/Creatinine [Mass ratio] 15.3 mg/mg Normal [facility] Comment on above: Performed By: #### L ACT #### [facility] [address] [address] [address] Kulwant Brennan PROTIMEon 12-31-2021 INR Coag (PPP) [Relative time] 1.17 {INR} Normal [facility] Comment on above: Performed By: #### H STROPN #### [facility] [address] [place] [address] Dr. Kulwant Brennan INR GUIDELINES SEE BELOW Normal The [facility] Comment on above: Result Comment: HAYDEE RED INR: 2.0 - 3.0 CONDITIONS NOT LISTED BELOW 2.5 - 3.5 FOR PROSTHETIC HEART VALVE REPLACEMENT 2.5 - 3.5 RECURRENT THROMBOSIS Performed By: #### H STROPN #### [facility] [address] [place] [address] Dr. Kulwant Brennan PT Coag (PPP) [Time] 12.5 s Critically high 9.0-11.6 [facility] Comment on above: Performed By: #### H STROPN #### [facility] [address] [address] [address] Kulwant Brennan PTTon 12-31-2021 aPTT Coag (Bld) [Time] 33.3 s Normal 22.3-36.2 The [facility] Comment on above: Performed By: #### P TT, PT ####[facility] [address] [address]Dr. Kulwant Brennan TROPONIN, HIGH SENSITIVITYon 12-31-2021 HSTROP 6.0 pg/mL Normal 4.0-76.1 The [facility] Comment on above: Result Comment: CUT- OFF POINTS HAVE BEEN ESTABLISHED BASED ON THE FOURTH UNIVERSAL DEFINITIONS OF MYOCARDIAL INFARCTION. THE UPPER REFERENCE LIMIT (URL) OF TROPONIN, DEFINED THE 99TH PERCENTILE OF cTnI DISTRIBUTION IN A REFERENCE POPULATION, HAS BEEN CONFIRMED THE DECISION THRESHOLD FOR MT DIAGNOSIS. Performed By: #### L ACT #### [facility] [address] [address] [address] Kulwant Brennan URINE MICROSCOPIC ONLYon BACTERIA SMALL Abnormal NONE SEEN The [facility] Comment on above: Performed By: #### MICHELLE VARELARO ####[facility] [address] [place], [place] [address]DrAmarjit Brennan Bacteria identified Cx Nom (U) INDICATED Normal The [facility] Comment on above: Performed By: #### MICHELLE VARELARO ####[facility] [address] [place], [place] [address]DrAmarjit Brennan CAST SEEN Abnormal NONE SEEN The [facility] Comment on above: Performed By: #### Lilly JHAVERI UMICRO ####[facility] [address] [address]DrAmarjit Brennan COARSE GRANULAR CAST FEW Normal The [facility] Comment on above: Performed By: #### Lilly JHAVERI UMICRO ####[facility] [address] [address]DrAmarjit Brennan Crystals LM Nom (Urine sed) NONE SEEN Normal NONE SEEN The [facility] Comment on above: Performed By: #### E BISHOPR, UMICRO ####[facility] [address] [place], [place] [address]Ug. Kulwant Brennan Epithelial cells LM Ql (Urine sed) FEW Abnormal NONE SEEN /RARE The [facility] Comment on above: Performed By: #### E BISHOPR, UMICRO ####[facility] [address] [place], [place] [address]Nj. Kulwant Brennan MUCOUS TRACE Abnormal NONE SEEN The [facility] Comment on above: Performed By: #### E BISHOPR, UMICRO ####[facility] [address] [place], [place] [address]Mu. Kulwant Brennan RBC 5-10 Abnormal 0-2 The [facility] Comment on above: Performed By: #### E EMILIO, UMICRO ####[facility] [address] [place], [place] [address]Dw. Kulwant Brennan WBC 0-2 Abnormal NONE SEEN The [facility] Comment on above: Performed By: #### MICHELLE VARELARO ####[facility] [address] [place], [place] [address]Jn. Kulwant Brennan US SINGLE QUAD RT UPPERon [...] DAVIE NARANJO Date: 2021-12-31 19:27 Normal The [facility] AMYLASEon 12-30-2021 Amylase [Catalytic activity/Vol] 47 U/L Normal 25-115 The [facility] Comment on above: Performed By: #### H STROPN #### [facility] [address] [place] [address] Dr. Kulwant Brennan CBC AUTO DIFFon 12-30-2021 BASO # 0.0 103/ul Normal 0.0-0.1 [facility] Comment on above: Performed By: #### L ACT #### [facility] [address] [place] [address] Dr. Kulwant Brennan Basophils/100 WBC (Bld) 0.5 % Normal 0.2-2.0 [facility] Comment on above: Performed By: #### L ACT #### [facility] [address] [place] [address] Dr. Kulwant Brennan EO # 0.3 103/ul Normal 0.0-0.7 [facility] Comment on above: Performed By: #### L ACT #### [facility] [address] [place] [address] Dr. Kulwant Brennan Eosinophils/100 WBC (Bld) 3.3 % Normal 0.9-7.0 [facility] Comment on above: Performed By: #### L ACT #### [facility] [address] [place] [address] Dr. Kulwant Brennan Erythrocyte distribution width (RBC) [Ratio] 14.1 % Normal 11.0-15.0 [facility] Comment on above: Performed By: #### L ACT #### [facility] [address] [place] [address] Dr. Kulwant Brennan Hematocrit (Bld) [Volume fraction] 38.8 % Critically low 42.0-54.0 [facility] Comment on above: Performed By: #### L ACT #### [facility] [address] [place] [address] Dr. Kulwant Brennan Hemoglobin (Bld) [Mass/Vol] 12.4 g/dL Critically low 14.0-18.0 [facility] Comment on above: Performed By: #### L ACT #### [facility] [address] [address] [address] Kulwant Brennan IG # 0.04 10e3/ul Critically high 0.00-0.03 [facility] Comment on above: Performed By: #### L ACT #### [facility] [address] [place] [address] Dr. Kulwant Brennan IG % 0.5 % Normal 0.0-0.5 [facility] Comment on above: Performed By: #### L ACT #### [facility] [address] [place] [address] Dr. Kulwant Brennan LYMPH # 1.9 103/ul Normal 1.2-3.8 [facility] Comment on above: Performed By: #### L ACT #### [facility] [address] [place] [address] Dr. Kulwant Brennan Lymphocytes/100 WBC (Bld) 23.9 % Normal 20.5-60.0 [facility] Comment on above: Performed By: #### L ACT #### [facility] [address] [place] [address] Dr. Kulwant Brennan MANUAL DIFF REQ NO Normal [facility] Comment on above: Performed By: #### L ACT #### [facility] [address] [place] [address] Dr. Kulwant Brennan MCH (RBC) [Entitic mass] 27.5 pg Normal 25.9-34.0 [facility] Comment on above: Performed By: #### L ACT #### [facility] [address] [place] [address] Dr. Kulwant Brennan MCHC (RBC) [Mass/Vol] 32.0 g/dL Normal 29.9-35.2 [facility] Comment on above: Performed By: #### L ACT #### [facility] [address] [address] [address] Kulwant Brennan MCV (RBC) [Entitic vol] 86.0 fL Normal 80.0-94.0 [facility] Comment on above: Performed By: #### L ACT #### [facility] [address] [address] [address] Kulwant Brennan MONO # 0.9 103/ul Critically high 0.3-0.8 [facility] Comment on above: Performed By: #### L ACT #### [facility] [address] [address] [address] Kulwant Brennan Monocytes/100 WBC (Bld) 11.8 % Normal 1.7-12.0 [facility] Comment on above: Performed By: #### L ACT #### [facility] [address] [address] [address] Kulwant Brennan NEUT # 4.7 103/ul Normal 1.4-6.5 [facility] Comment on above: Performed By: #### L ACT #### [facility] [address] [address] [address] Kulwant Brennan Neutrophils/100 WBC (Bld) 60.0 % Normal 43.0-75.0 [facility] Comment on above: Performed By: #### L ACT #### [facility] [address] [address] [address] Kulwant Brennan Platelet mean volume (Bld) [Entitic vol] 10.0 fL Normal 9.5-13.5 [facility] Comment on above: Performed By: #### L ACT #### [facility] [address] [address] [address] Kulwant Brennan PLT 222 103/ul Normal 150-450 The [facility] Comment on above: Performed By: #### L ACT #### [facility] [address] [address] [address] Kulwant Brennan RBC 4.51 106/ul Critically low 4.70-6.10 [facility] Comment on above: Performed By: #### L ACT #### [facility] [address] [place], [place] [address] Dr. Kulwant Brennan WBC 7.9 103/ul Normal 4.0-11.0 [facility] Comment on above: Performed By: #### L ACT #### [facility] [address] [place], [place] [address] [address] ABD/PELV W CONon 12-31-19 CT ABD/PELV W CON EXAMINATION: CT ABD/ PELV W CON HISTORY: UNSPECIFIED ABDOMINAL PAIN COMPARISON: 12/29/2021. TECHNIQUE: CT of abdomen/pelvis with intravenous contrast. Dose reduction techniques were achieved by using automated exposure control and/or adjustment of mA and/or kV according to patient size and/or use of iterative reconstruction technique. FINDINGS: Policy Manager: No pertinent findings, which are not already [...] versus omental infarct. Electronically authenticated by: ALIYA AISHWARYA Date: 2021-12-30 21:29 Normal The [facility] ER URINE PROFILEon 2 Bilirubin Ql (U) Negative Normal NEGATIVE The [facility] Comment on above: Performed By: #### L ACT #### [facility] [address] [address] [address] Kulwant Brennan Clarity (U) CLEAR Normal CLEAR The [facility] Comment on above: Performed By: #### L ACT #### [facility] [address] [address] [address] Kulwant Brennan Color (U) LT. YELLOW Normal YELLOW [facility] Comment on above: Performed By: #### L ACT #### [facility] [address] [address] [address] Kulwant Brennan ERUAHD A micrscopic examina tion will be performed if indicated. Normal The [facility] Comment on above: Performed By: #### L ACT #### [facility] [address] [address] [address] Kulwant Brennan Glucose Ql (U) Negative Normal NEGATIVE The [facility] Comment on above: Performed By: #### L ACT #### [facility] [address] [address] [address] Kulwant Brennan Hemoglobin Ql (U) Negative Normal NEGATIVE The [facility] Comment on above: Performed By: #### L ACT #### [facility] [address] [address] [address] Kulwant Brennan Ketones Ql (U) Negative Normal NEGATIVE The [facility] Comment on above: Performed By: #### L ACT #### [facility] [address] [address] [address] Kulwant Brennan LEUKOCYTES Negative Normal NEGATIVE [facility] Comment on above: Performed By: #### L ACT #### [facility] [address] [address] [address] Kulwant Brennan Nitrite Ql (U) Negative Normal NEGATIVE The [facility] Comment on above: Performed By: #### L ACT #### [facility] [address] [place] [address] Dr. Kulwant Brennan pH (U) 5.5 [pH] Normal 5-9 [facility] Comment on above: Performed By: #### L ACT #### [facility] [address] [place] [address] Dr. Kulwant Brennan SPEC GRAVITY >=1.030 Abnormal 1.005-<=1. 025 [facility] Comment on above: Performed By: #### L ACT #### [facility] [address] [place] [address] Dr. Kulwant Brennan UA PROTEIN Negative Normal NEGATIVE/ TRACE [facility] Comment on above: Performed By: #### L ACT #### [facility] [address] [place] [address] Dr. Kulwant Brennan UR MICRO IND NOT INDICATED Normal [facility] Comment on above: Performed By: #### L ACT #### [facility] [address] [place] [address] Dr. Kulwant Brennan Urobilinogen Qn (U) 0.2 {Luis'U}/dL Normal 0.2 - 1. 0 [facility] Comment on above: Performed By: #### L ACT #### [facility] [address] [place] [address] Dr. Kulwant Brennan LIPASEon 12-30-2021 Lipase [Catalytic activity/Vol] 105.0 U/L Normal 73.0-393.0 [facility] Comment on above: Performed By: #### H STROPN #### [facility] [address] [place] [address] Dr. Kulwant Brennan LIVER PROFILEon 12-30-2021 Albumin [Mass/Vol] 3.8 g/dL Normal 3.4-5.0 [facility] Comment on above: Performed By: #### H STROPN #### [facility] [address] [place] [address] Dr. Kulwant Brennan Albumin/Globulin [Mass ratio] 1.0 {ratio} Normal [facility] Comment on above: Performed By: #### H STROPN #### [facility] [address] [address] [address] Kulwant Brennan ALP [Catalytic activity/Vol] 67 U/L Normal 46-116 [facility] Comment on above: Performed By: #### H STROPN #### [facility] [address] [address] [address] Kulwant Brennan ALT [Catalytic activity/Vol] 31 U/L Normal 16-63 [facility] Comment on above: Performed By: #### H STROPN #### [facility] [address] [address] [address] Kulwant Brennan AST [Catalytic activity/Vol] 21 U/L Normal 15-37 [facility] Comment on above: Performed By: #### H STROPN #### [facility] [address] [place] [address] Dr. Kulwant Brennan BILI, CONJUGATED 0.1 mg/dL Normal 0.0-0.2 [facility] Comment on above: Performed By: #### H STROPN #### [facility] [address] [place] [address] Dr. Kulwant Brennan Bilirubin [Mass/Vol] 0.5 mg/dL Normal 0.2-1.0 [facility] Comment on above: Performed By: #### H STROPN #### [facility] [address] [place] [address] Dr. Kulwant Brennan Globulin (S) [Mass/Vol] 3.7 g/dL Normal [facility] Comment on above: Performed By: #### H STROPN #### [facility] [address] [place] [address] Dr. Kulwant Brennan Protein [Mass/Vol] 7.5 g/dL Normal 6.4-8.2 [facility] Comment on above: Performed By: #### H STROPN #### [facility] [address] [place] [address] Dr. Kulwant Brennan PROF CHEM 8 (BAS METB)on Anion gap [Moles/Vol] 14.5 mmol/L Normal [facility] Comment on above: Performed By: #### H STROPN #### [facility] [address] [address] [address] Kulwant Brennan Calcium [Mass/Vol] 7.5 mg/dL Critically low 8.5-10.1 Th e [facility] Comment on above: Performed By: #### H STROPN #### [facility] [address] [address] [address] Kulwant Brennan Chloride [Moles/Vol] 104 mmol/L Normal 98-107 [facility] Comment on above: Performed By: #### H STROPN #### [facility] [address] [address] [address] Kulwant Brennan CO2 [Moles/Vol] 26.8 mmol/L Normal 21.0-32.0 [facility] Comment on above: Performed By: #### H STROPN #### [facility] [address] [address] [address] Kulwant Brennan Creatinine [Mass/Vol] 1.31 mg/dL Critically high 0.70-1.30 [facility] Comment on above: Performed By: #### H STROPN #### [facility] [address] [address] [address] Kulwant Brennan EGFR-AF CZECH >60 Normal >=60 [facility] Comment on above: Performed By: #### H STROPN #### [facility] [address] [address] [address] Kulwant Brennan EGFR-NON AF CZECH 54 mL/min/1.73m2 Critically low >=60 [facility] Comment on above: Performed By: #### H STROPN #### [facility] [address] [address] [address] Kulwant Brennan Glucose [Mass/Vol] 97 mg/dL Normal 74-106 [facility] Comment on above: Performed By: #### H STROPN #### [facility] [address] [address] [address] Kulwant Brennan Potassium [Moles/Vol] 4.3 mmol/L Normal 3.5-5.1 [facility] Comment on above: Performed By: #### H STROPN #### [facility] [address] [address] [address] Kulwant Brennan Sodium [Moles/Vol] 141 mmol/L Normal 136-145 [facility] Comment on above: Performed By: #### H STROPN #### [facility] [address] [address] [address] Kulwant Brennan Urea nitrogen [Mass/Vol] 25.0 mg/dL Critically high 7.0-18.0 [facility] Comment on above: Performed By: #### H STROPN #### [facility] [address] [place] [address] Dr. Kulwant Brennan Urea nitrogen/Creatinine [Mass ratio] 19.1 mg/mg Normal [facility] Comment on above: Performed By: #### H STROPN #### [facility] [address] [place] [address] Dr. Kulwant Brennan CBC AUTO DIFFon 12-29-2021 BASO # 0.0 103/ul Normal 0.0-0.1 [facility] Comment on above: Performed By: #### H STROPN #### [facility] [address] [place] [address] Dr. Kulwant Brennan Basophils/100 WBC (Bld) 0.5 % Normal 0.2-2.0 [facility] Comment on above: Performed By: #### H STROPN #### [facility] [address] [place] [address] Dr. Kulwant Brennan EO # 0.3 103/ul Normal 0.0-0.7 [facility] Comment on above: Performed By: #### H STROPN #### [facility] [address] [place] [address] Dr. Kulwant Brennan Eosinophils/100 WBC (Bld) 3.6 % Normal 0.9-7.0 [facility] Comment on above: Performed By: #### H STROPN #### [facility] [address] [place] [address] Dr. Kulwant Brennan Erythrocyte distribution width (RBC) [Ratio] 14.1 % Normal 11.0-15.0 [facility] Comment on above: Performed By: #### H STROPN #### [facility] [address] [address] [address] Kulwant Brennan Hematocrit (Bld) [Volume fraction] 39.0 % Critically low 42.0-54.0 [facility] Comment on above: Performed By: #### H STROPN #### [facility] [address] [address] [address] Kulwant Brennan Hemoglobin (Bld) [Mass/Vol] 12.5 g/dL Critically low 14.0-18.0 [facility] Comment on above: Performed By: #### H STROPN #### [facility] [address] [place] [address] Dr. Kulwant Brennan IG # 0.03 10e3/ul Normal 0.00-0.03 [facility] Comment on above: Performed By: #### H STROPN #### [facility] [address] [place] [address] Dr. Kulwant Brennan IG % 0.4 % Normal 0.0-0.5 [facility] Comment on above: Performed By: #### H STROPN #### [facility] [address] [place] [address] Dr. Kulwant Brennan LYMPH # 2.0 103/ul Normal 1.2-3.8 [facility] Comment on above: Performed By: #### H STROPN #### [facility] [address] [place] [address] Dr. Kulwant Brennan Lymphocytes/100 WBC (Bld) 28.0 % Normal 20.5-60.0 [facility] Comment on above: Performed By: #### H STROPN #### [facility] [address] [place] [address] Dr. Kulwant Brennan MANUAL DIFF REQ NO Normal [facility] Comment on above: Performed By: #### H STROPN #### [facility] [address] [place] [address] Dr. Kulwant Brennan MCH (RBC) [Entitic mass] 27.5 pg Normal 25.9-34.0 [facility] Comment on above: Performed By: #### H STROPN #### [facility] [address] [address] [address] Kulwant Brennan MCHC (RBC) [Mass/Vol] 32.1 g/dL Normal 29.9-35.2 [facility] Comment on above: Performed By: #### H STROPN #### [facility] [address] [address] [address] Kulwant Brennan MCV (RBC) [Entitic vol] 85.7 fL Normal 80.0-94.0 [facility] Comment on above: Performed By: #### H STROPN #### [facility] [address] [address] [address] Kulwant Brennan MONO # 1.0 103/ul Critically high 0.3-0.8 [facility] Comment on above: Performed By: #### H STROPN #### [facility] [address] [address] [address] Kulwant Brennan Monocytes/100 WBC (Bld) 14.0 % Critically high 1.7-12.0 [facility] Comment on above: Performed By: #### H STROPN #### [facility] [address] [address] [address] Kulwant Brennan NEUT # 3.9 103/ul Normal 1.4-6.5 [facility] Comment on above: Performed By: #### H STROPN #### [facility] [address] [address] [address] Kulwant Brennan Neutrophils/100 WBC (Bld) 53.5 % Normal 43.0-75.0 [facility] Comment on above: Performed By: #### H STROPN #### [facility] [address] [address] [address] Kulwant Brennan Platelet mean volume (Bld) [Entitic vol] 10.1 fL Normal 9.5-13.5 [facility] Comment on above: Performed By: #### H STROPN #### [facility] [address] [address] [address] Kulwant Brennna PLT 237 103/ul Normal 150-450 [facility] Comment on above: Performed By: #### H STROPN #### [facility] [address] [place], [place] [address] Dr. Kulwant Brennan RBC 4.55 106/ul Critically low 4.70-6.10 [facility] Comment on above: Performed By: #### H STROPN #### [facility] [address] [place], [place] [address] Dr. Kulwant Brennan WBC 7.3 103/ul Normal 4.0-11.0 [facility] Comment on above: Performed By: #### H STROPN #### [facility] [address] [place], [place] [address] ABD/PELVIS WO CONon [...] AMOS RAMIREZ Date: 2021-12-29 00:59 Normal The [facility] PROF 14(COMP METB)on 022 Albumin [Mass/Vol] 4.0 g/dL Normal 3.4-5.0 [facility] Comment on above: Performed By: #### H STROPN #### [facility] [address] [place] [address] Dr. Kulwant Brennan Albumin/Globulin [Mass ratio] 1.1 {ratio} Normal [facility] Comment on above: Performed By: #### H STROPN #### [facility] [address] [place] [address] Dr. Kulwant Brennan ALP [Catalytic activity/Vol] 68 U/L Normal 46-116 [facility] Comment on above: Performed By: #### H STROPN #### [facility] [address] [place] [address] Dr. Kulwant Brennan ALT [Catalytic activity/Vol] 27 U/L Normal 16-63 [facility] Comment on above: Performed By: #### H STROPN #### [facility] [address] [place] [address] Dr. Kulwant Brennan Anion gap [Moles/Vol] 12.8 mmol/L Normal [facility] Comment on above: Performed By: #### H STROPN #### [facility] [address] [place] [address] Dr. Kulwant Brennan AST [Catalytic activity/Vol] 16 U/L Normal 15-37 [facility] Comment on above: Performed By: #### H STROPN #### [facility] [address] [place] [address] Dr. Kulwant Brennan Bilirubin [Mass/Vol] 0.5 mg/dL Normal 0.2-1.0 [facility] Comment on above: Performed By: #### H STROPN #### [facility] [address] [address] [address] Kulwant Brennan Calcium [Mass/Vol] 7.4 mg/dL Critically low 8.5-10.1 Th [facility] Comment on above: Performed By: #### H STROPN #### [facility] [address] [address] [address] Kulwant Brennan Chloride [Moles/Vol] 102 mmol/L Normal 98-107 [facility] Comment on above: Performed By: #### H STROPN #### [facility] [address] [place] [address] Dr. Kulwant Brennan CO2 [Moles/Vol] 27.1 mmol/L Normal 21.0-32.0 [facility] Comment on above: Performed By: #### H STROPN #### [facility] [address] [place] [address] Dr. Kulwant Brennan Creatinine [Mass/Vol] 1.42 mg/dL Critically high 0.70-1.30 [facility] Comment on above: Performed By: #### H STROPN #### [facility] [address] [place] [address] Dr. Kulwant Brennan EGFR-AF CZECH 60 mL/min/1.73m2 Normal >=60 Th [facility] Comment on above: Performed By: #### H STROPN #### [facility] [address] [place] [address] Dr. Kulwant Brennan EGFR-NON AF CZECH 50 mL/min/1.73m2 Critically low >=60 [facility] Comment on above: Performed By: #### H STROPN #### [facility] [address] [place] [address] Dr. Kulwant Brennan Globulin (S) [Mass/Vol] 3.5 g/dL Normal [facility] Comment on above: Performed By: #### H STROPN #### [facility] [address] [address] [address] Kulwant Brennan Glucose [Mass/Vol] 139 mg/dL Critically high 74-106 [facility] Comment on above: Performed By: #### H STROPN #### [facility] [address] [address] [address] Kulwant Brennan Potassium [Moles/Vol] 3.9 mmol/L Normal 3.5-5.1 [facility] Comment on above: Performed By: #### H STROPN #### [facility] [address] [address] [address] Kulwant Brennan Protein [Mass/Vol] 7.5 g/dL Normal 6.4-8.2 [facility] Comment on above: Performed By: #### H STROPN #### [facility] [address] [place] [address] Dr. Kulwant Brennan Sodium [Moles/Vol] 138 mmol/L Normal 136-145 [facility] Comment on above: Performed By: #### H STROPN #### [facility] [address] [address] [address] Kulwant Brennan Urea nitrogen [Mass/Vol] 27.0 mg/dL Critically high 7.0-18.0 [facility] Comment on above: Performed By: #### H STROPN #### [facility] [address] [place] [address] Dr. Kulwant Brennan Urea nitrogen/Creatinine [Mass ratio] 19.0 mg/mg Normal [facility] Comment on above: Performed By: #### H STROPN #### [facility] [address] [place] [address] Dr. Kulwant Brennan APTTon 12-13-2021 aPTT Coag (Bld) [Time] 32.8 s Normal 25.0-35.0 [facility] Comment on above: Order Comment: [...] FOR THIS PURPOSE. Performed By: #### 5 [id number], [id number] #### [facility] [address] [place] [address], [facility] CBC COMPLETE BLOOD COUNTon 0 12-13-2021 Erythrocyte distribution width (RBC) [Ratio] 14.0 % Normal 11.5-15.0 [facility] Comment on above: Order Comment: No: D o not add to previous draw Performed By: #### 5 6100, [id number] #### [facility] [address] [place] [id number], [facility] Hematocrit (Bld) [Volume fraction] 36.7 % Low 39.0-50.0 [facility] Comment on above: Order Comment: No: D o not add to previous draw Performed By: #### 5 6100, [id number] #### [facility] [address] [place] [address], [facility] Hemoglobin (Bld) [Mass/Vol] 12.0 g/dL Low 13.0-17.0 [facility] Comment on above: Order Comment: No: D o not add to previous draw Performed By: #### 5 6100, 62010 #### [facility] [address] [place] [address], [facility] MCH (RBC) [Entitic mass] 27.5 pg Normal 27.0-33.0 [facility] Comment on above: Order Comment: No: D o not add to previous draw Performed By: #### 5 6100, [id number] #### [facility] [address] [place] [id number], [facility] MCHC (RBC) [Mass/Vol] 32.7 g/dL Normal 32.0-35.0 [facility] Comment on above: Order Comment: No: D o not add to previous draw Performed By: #### 5 610, [id number] #### [facility] [address] [place] [id number], [facility] MCV (RBC) [Entitic vol] 84.0 fL Normal 82.0-98.0 [facility] Comment on above: Order Comment: No: D o not add to previous draw Performed By: #### 5 610, [id number] #### [facility] [address] [place] [id number], [facility] Nucleated RBC/100 WBC (Bld) [Ratio] 0 % Normal 0-0 [facility] Comment on above: Order Comment: No: D o not add to previous draw Performed By: #### 5 610, [id number] #### [facility] [address] [place] [id number], [place] PLAT CNT 166 10*3/uL Normal 150-400 [facility] Comment on above: Order Comment: No: D o not add to previous draw Performed By: #### 5 6100, [id number] #### [facility] [address] [place] [address], [facility] RBC (Bld) [#/Vol] 4.37 10*6/uL Normal 4.20-5.70 [facility] Comment on above: Order Comment: No: D o not add to previous draw Performed By: #### 5 610, 91816 #### [facility] [address] [place] [id number], [place] WBC (Bld) [#/Vol] 8.41 10*3/uL Normal 4.00-10.60 [facility] Comment on above: Order Comment: No: D o not add to previous draw Performed By: #### 5 610, 51817 #### [facility] [address] [place] [address], [place] COMP METABOLIC PANELon 12-13 Albumin [Mass/Vol] 3.8 g/dL Normal 3.5-5.7 [facility] Comment on above: Order Comment: No: D o not add to previous draw Performed By: #### 5 610, 58526 #### [facility] [address] [place] [address], [place] ALKALINE PHOSPH 52 IU/L Normal 34-104 [facility] Comment on above: Order Comment: No: D o not add to previous draw Performed By: #### 5 610, 44460 #### [facility] [address] [place] [address], [place] ALT [Catalytic activity/Vol] 16 U/L Normal 7-52 [facility] Comment on above: Order Comment: No: D o not add to previous draw Performed By: #### 5 6100, 84506 #### [facility] [address] [place] [address], [place] AST [Catalytic activity/Vol] 15 U/L Normal 13-39 [facility] Comment on above: Order Comment: No: D o not add to previous draw Performed By: #### 5 6100, 56086 #### [facility] [address] [place] [address], [place] Bilirubin [Mass/Vol] 0.9 mg/dL Normal 0.3-1.0 [facility] Comment on above: Order Comment: No: D o not add to previous draw Performed By: #### 5 6100, 36637 #### [facility] [address] [place] [address], [place] Calcium [Mass/Vol] 7.0 mg/dL Low 8.6-10.3 [facility] Comment on above: Order Comment: No: D o not add to previous draw Performed By: #### 5 6100, 27091 #### [facility] [address] [place] [address], [place] Chloride [Moles/Vol] 106 mmol/L Normal 98-107 [facility] Comment on above: Order Comment: No: D o not add to previous draw Performed By: #### 5 6100, 28320 #### [facility] [address] [place] [address], [place] CO2 [Moles/Vol] 27 mmol/L Normal 21-31 [facility] Comment on above: Order Comment: No: D o not add to previous draw Performed By: #### 5 610, 03126 #### [facility] [address] [place] [address], [place] Creatinine [Mass/Vol] 1.16 mg/dL Normal 0.70-1.30 [facility] Comment on above: Order Comment: No: D o not add to previous draw Performed By: #### 5 610, 73221 #### [facility] [address] [place] [address], [facility] GFR/1.73 sq M.predicted among non-blacks MDRD (S/P/Bld) [Vol rate/Area] mL/min/{1.73_m2} Normal >60 [facility] Comment on above: Order Comment: No: D o not add to previous draw Result Comment: [facility]'s estimated glomerular filtration rate (eGFR) will no [...] of individuals. Performed By: #### 5 6101, 35380 #### [facility] [address] [place] [address], [place] Glucose [Mass/Vol] 104 mg/dL High 70-100 [facility] Comment on above: Order Comment: No: D o not add to previous draw Performed By: #### 5 6101, 93316 #### [facility] [address] [place] [address], [place] Potassium [Moles/Vol] 4.3 mmol/L Normal 3.5-5.1 [facility] Comment on above: Order Comment: No: D o not add to previous draw Performed By: #### 5 6101, 11328 #### [facility] [address] [place] [address], [facility] Protein [Mass/Vol] 6.2 g/dL Normal 6.0-8.3 [facility] Comment on above: Order Comment: No: D o not add to previous draw Performed By: #### 5 6101, 80674 #### [facility] [address] [place] [address], [facility] Sodium [Moles/Vol] 138 mmol/L Normal 136-145 [facility] Comment on above: Order Comment: No: D o not add to previous draw Performed By: #### 5 6101, 36839 #### [facility] [address] [place] [address], [facility] Urea nitrogen [Mass/Vol] 26 mg/dL High 7-25 [facility] Comment on above: Order Comment: No: D o not add to previous draw Performed By: #### 5 6101, 45378 #### [facility] [address] Cardiovascular Lab Reporton 12-13-2021 Cardiovascular Lab Report [facility] Patient Name: Yoli Antunez [facility] MR #: [id number] Physician: Mono Hinson Department of [place] Medicine Service Date: 12/12/2021 Division of Birthdate: 1955 Cardiology Room #: [id number] Adult Cardiovascular Services [facility] [address] [place], [place] [address] Cardiovascular Laboratory Report INDICATION: The patient is [...] the right common femoral vein using a 6-Micronesian ProGlide device. METHODS: Procedure was explained to the patient with risks and benefits, he signed informed consent. 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 The procedure was [...] the right common femoral vein and a 6-Micronesian x 11 cm sheath was placed. Preclosure in the vein was performed using a 6-Micronesian ProGlide device, a transseptal wire was advanced [...] was retracted and exchanged to the Watchman 14-Micronesian double curve access sheath. This was not [...] stiffer wire. This was performed using a 6-Micronesian multipurpose catheter, through which we advanced a Lunderquist double curve wire and the distal end was placed in the left superior pulmonary vein. This eventually allowed to advance the sheath across the interatrial septum. A 6-Micronesian angled pigtail catheter was advanced and used [...] the (more content not included)... Normal [facility] PROTHROMBIN TIMEon 2 INR Coag (PPP) [Relative time] 1.09 {INR} Normal 0.91-1.16 [facility] Comment on above: Order Comment: [...] CHEST 1995;[id number]. Performed By: #### 5 6101, 77211 #### [facility] [address] PT Coag (PPP) [Time] 14.1 s Normal 12.3-14.8 [facility] Comment on above: Order Comment: No: D o not add to previous draw Result Comment: ALL RESULTS MUST BE INTERPRETED WITH RESPECT TO BLOOD DRAWING ARTIFACT OR DILUTION ERROR OF ANTICOAGULANT AT THE TIME OF SAMPLING. Performed By: #### 5 6101, 63339 #### [facility] [address] [facility]. [address] TYPE AND SCREENon 12-12-2021 ABO INTERPRETATION O Normal [facility] Comment on above: Performed By: #### 6 2586 #### [facility] [address] RH INTERPRETATION Positive Normal [facility] Comment on above: Performed By: #### 6 2586 #### [facility] [address] Covid-19 PCR (CVDTBH)on 11-20 SARS-CoV-2 (COVID-19) RNA MIKE+probe Ql (Unsp spec) Not detected Normal NOT DETECTED [facility] Comment on above: Result Comment: This test is not yet approved or cleared by the [place] FDA. When there are no FDA-approved or cleared tests available, and other criteria are met, FDA can make tests available under an emergency access mechanism called an Emergency Use Authorization (EUA). The EUA for this test is supported by the [place] of Health and Human Service's (HHS's) declaration [...] SARS-CoV-2. Performed By: #### L ACT #### [facility] [address] [place] [address] Dr. Kulwant Brennan *MRSA/MSSA DNA NASALon 11-21 *MRSA/MSSA DNA NASAL Clinical Report: (D ) Specimen: NASAL SWAB Collected: 11/21/2021 09:15 Status: Final Last Updated: 11/21/2021 12:32 MSSA DNA (Final) Negative MRSA DNA (Final) Negative Normal [facility] Comment on above: Performed By: #### 3 1595 #### [facility] [address] [place] [address], [facility] BASIC METABOLIC PANELon 08-0 Calcium [Mass/Vol] 7.0 mg/dL Low 8.6-10.3 [facility] Comment on above: Performed By: #### 0 0071 #### [facility] [address] [place] [address], [place] Chloride [Moles/Vol] 105 mmol/L Normal 98-107 [facility] Comment on above: Performed By: #### 0 0071 #### [facility] [address] [place] [address], [place] CO2 [Moles/Vol] 25 mmol/L Normal 21-31 [facility] Comment on above: Performed By: #### 0 0071 #### [facility] [address] [place] [address], [place] Creatinine [Mass/Vol] 1.37 mg/dL High 0.70-1.30 [facility] Comment on above: Performed By: #### 0 0071 #### [facility] [address] [place] [address], [facility] EGFR 56 ml/min/1.73sq m Abnormal >60 [facility] Comment on above: Result Comment: [facility]'s estimated glomerular filtration rate (eGFR) will no [...] individuals. Performed By: #### 0 0071 #### [facility] [address] [place] [address], [facility] Glucose [Mass/Vol] 100 mg/dL Normal 70-100 [facility] Comment on above: Performed By: #### 0 0071 #### [facility] [address] [place] [address], [facility] Potassium [Moles/Vol] 4.6 mmol/L Normal 3.5-5.1 [facility] Comment on above: Performed By: #### 0 0071 #### [facility] [address] [place] [address], [facility] Sodium [Moles/Vol] 139 mmol/L Normal 136-145 [facility] Comment on above: Performed By: #### 0 0071 #### [facility] [address] [place] [address], [facility] Urea nitrogen [Mass/Vol] 26 mg/dL High 7-25 [facility] Comment on above: Performed By: #### 0 0071 #### [facility] [address] [place] [address], [facility] CBC COMPLETE BLOOD COUNTon 0 11-21-2021 Erythrocyte distribution width (RBC) [Ratio] 14.2 % Normal 11.5-15.0 [facility] Comment on above: Performed By: #### 5 6100, 87111 #### [facility] [address] [place] [address], [facility] Hematocrit (Bld) [Volume fraction] 40.6 % Normal 39.0-50.0 [facility] Comment on above: Performed By: #### 5 6100, 84661 #### [facility] [address] [place] [address], [facility] Hemoglobin (Bld) [Mass/Vol] 13.0 g/dL Normal 13.0-17.0 [facility] Comment on above: Performed By: #### 5 6100, 92439 #### [facility] [address] [place] [address], [facility] MCH (RBC) [Entitic mass] 27.0 pg Normal 27.0-33.0 [facility] Comment on above: Performed By: #### 5 6100, 83915 #### [facility] [address] [place] [address], [facility] MCHC (RBC) [Mass/Vol] 32.0 g/dL Normal 32.0-35.0 [facility] Comment on above: Performed By: #### 5 6100, 34062 #### [facility] [address] [place] [address], [facility] MCV (RBC) [Entitic vol] 84.4 fL Normal 82.0-98.0 [facility] Comment on above: Performed By: #### 5 6100, 58642 #### [facility] [address] [place] [address], [facility] Nucleated RBC/100 WBC (Bld) [Ratio] 0 % Normal 0-0 [facility] Comment on above: Performed By: #### 5 6100, 92921 #### [facility] [address] PLAT CNT 232 10*3/uL Normal 150-400 [facility] Comment on above: Performed By: #### 5 6101, 04882 #### [facility] [address] [facility] [place] [address], [facility] RBC (Bld) [#/Vol] 4.81 10*6/uL Normal 4.20-5.70 [facility] Comment on above: Performed By: #### 5 6101, 98256 #### [facility] [address] [facility] [place] [address], [facility] WBC (Bld) [#/Vol] 7.53 10*3/uL Normal 4.00-10.60 [facility] Comment on above: Performed By: #### 5 6101, 99406 #### [address] CHEST AND LATERALon 11-22-19 CHEST AND LATERAL [facility] Department of Radiology [address] [place] [id number] Patient Name: YOLI ANTUNEZ : 1955 [...] device. Electronically signed: Danilo Bhandari. Transcribed by: [email or web address], User Resident: Electronically Signed by: DANILO BHANDARI @ 11/21/2021 11:32 AM Normal [facility] Comment on above: Order Comment: No: D o not add to previous draw Covid-19 PCR (CVDTB)on 10-21 SARS-CoV-2 (COVID-19) RNA MIKE+probe Ql (Unsp spec) Not detected Normal NOT DETECTED The [facility] Comment on above: Result Comment: This test is not yet approved or cleared by the [place] FDA. When there are no FDA-approved or cleared tests available, and other criteria are met, FDA can make tests available under an emergency access mechanism called an Emergency Use Authorization (EUA). The EUA for this test is supported by the [place] of Health and Human Service's (HHS's) declaration [...] consistent with SARS-CoV-2. Performed By: #### [facility] ####[facility] [address] [place], [place] [address]QxAmarjit Brennan Cardiovascular Lab Reporton 11-09-2021 Cardiovascular Lab Report [facility] MR #: [id number] Department of Physician: Lalito Joshi MD Medicine Service Date: 11/09/2021 Division of Birthdate: 1955 Cardiology Room #: Adult Cardiovascular Services [address] [place] [address] Cardiovascular Laboratory Report LOOP IMPLANT PROCEDURE NOTE [...] the sternum on the left using the [employer] tool. The loop recorder was then [...] observed. LOOP details: Device Model: [id number] Serial#: [id number] Sensin.16mV. IMPRESSION: Successful placement of LOOP implant with excellent sensing parameters. RECOMMENDATIONS: 1. Occlusive dressing to be changed after 7 days. 2. Do not wet the incision. Lalito Joshi MD Cardiac Electrophysiology. Electronically Signed by: Lalito Joshi MD 11/10/2021 11:10 A Lalito Joshi MD Date Dict: 11/09/2021/08:45 A/Lalito Joshi MD Date Trans: 11/09/2021 11:32 A/liliane DN_[id number] cc: Radha Burris M.D. [facility] [address] Normal [facility] POC SARS COV2 IDon 2 SARS-CoV-2 (COVID-19) RNA MIKE+probe Ql (Unsp spec) Negative Normal NEGATIVE [facility] Comment on above: Result Comment: ID N [...] of Accreditation. Performed By: #### 5 6101, 50650 #### [facility] [address] BNPon 10-03-2021 Natriuretic peptide B (Bld) [Mass/Vol] 75.0 pg/mL Normal <=900.0 The [facility] Comment on above: Performed By: #### H STROPN #### [facility] [address] [place] [address] [address] Kulwant Brennan CARDIAC MAYELIN ADMITon 022 CK [Catalytic activity/Vol] 142 U/L Normal 39-308 [facility] Comment on above: Performed By: #### H STROPN #### [facility] [address] [place] [address] [address] Kulwant Brennan CK.MB [Mass/Vol] 1.15 ng/mL Normal <=3.60 The [facility] Comment on above: Performed By: #### H STROPN #### [facility] [address] [place] [address] Dr. Kulwant Brennan HSTROP 4.0 pg/mL Normal 4.0-76.1 [facility] Comment on above: Result Comment: CUT- OFF POINTS HAVE BEEN ESTABLISHED BASED ON THE FOURTH UNIVERSAL DEFINITIONS OF MYOCARDIAL INFARCTION. THE UPPER REFERENCE LIMIT (URL) OF TROPONIN, DEFINED THE 99TH PERCENTILE OF cTnI DISTRIBUTION IN A REFERENCE POPULATION, HAS BEEN CONFIRMED THE DECISION THRESHOLD FOR MT DIAGNOSIS. Performed By: #### H STROPN #### [facility] [address] [place] [address] Dr. Kulwant Brennan EFRAIN 57 ng/mL Normal 16-96 [facility] Comment on above: Performed By: #### H STROPN #### [facility] [address] [place] [address] Dr. Kulwant Brennan CBC AUTO DIFFon 10-03-2021 BASO # 0.0 103/ul Normal 0.0-0.1 The [facility] Comment on above: Performed By: #### H STROPN #### [facility] [address] [place] [address] Dr. Kulwant Brennan Basophils/100 WBC (Bld) 0.4 % Normal 0.2-2.0 The [facility] Comment on above: Performed By: #### H STROPN #### [facility] [address] [place] [address] Dr. Kulwant Brennan EO # 0.2 103/ul Normal 0.0-0.7 The [facility] Comment on above: Performed By: #### H STROPN #### [facility] [address] [place] [address] Dr. Kulwant Brennan Eosinophils/100 WBC (Bld) 2.6 % Normal 0.9-7.0 The [facility] Comment on above: Performed By: #### H STROPN #### [facility] [address] [place] [address] Dr. Kulwant Brennan Erythrocyte distribution width (RBC) [Ratio] 14.6 % Normal 11.0-15.0 [facility] Comment on above: Performed By: #### H STROPN #### [facility] [address] [place] [address] Dr. Kulwant Brennan Hematocrit (Bld) [Volume fraction] 43.0 % Normal 42.0-54.0 [facility] Comment on above: Performed By: #### H STROPN #### [facility] [address] [place] [address] Dr. Kulwant Brennan Hemoglobin (Bld) [Mass/Vol] 13.6 g/dL Critically low 14.0-18.0 [facility] Comment on above: Performed By: #### H STROPN #### [facility] [address] [place] [address] Dr. Kulwant Brennan IG # 0.03 10e3/ul Normal 0.00-0.03 [facility] Comment on above: Performed By: #### H STROPN #### [facility] [address] [place] [address] Dr. Kulwant Brennan IG % 0.4 % Normal 0.0-0.5 [facility] Comment on above: Performed By: #### H STROPN #### [facility] [address] [place] [address] Dr. Kulwant Brennan LYMPH # 1.8 103/ul Normal 1.2-3.8 The [facility] Comment on above: Performed By: #### H STROPN #### [facility] [address] [place] [address] Dr. Kulwant Brennan Lymphocytes/100 WBC (Bld) 25.3 % Normal 20.5-60.0 [facility] Comment on above: Performed By: #### H STROPN #### [facility] [address] [place] [address] Dr. Kulwant Brennan MANUAL DIFF REQ NO Normal The [facility] Comment on above: Performed By: #### H STROPN #### [facility] [address] [place] [address] [address] Kulwant Brennan MCH (RBC) [Entitic mass] 27.1 pg Normal 25.9-34.0 The [facility] Comment on above: Performed By: #### H STROPN #### [facility] [address] [place] [address] Dr. Kulwant Brennan MCHC (RBC) [Mass/Vol] 31.6 g/dL Normal 29.9-35.2 The [facility] Comment on above: Performed By: #### H STROPN #### [facility] [address] [place] [address] Dr. Kulwant Brennan MCV (RBC) [Entitic vol] 85.8 fL Normal 80.0-94.0 The [facility] Comment on above: Performed By: #### H STROPN #### [facility] [address] [place] [address] Dr. Kulwant Brennan MONO # 0.8 103/ul Normal 0.3-0.8 The [facility] Comment on above: Performed By: #### H STROPN #### [facility] [address] [place] [address] Dr. Kulwant Brennan Monocytes/100 WBC (Bld) 11.9 % Normal 1.7-12.0 The [facility] Comment on above: Performed By: #### H STROPN #### [facility] [address] [place] [address] Dr. Kulwant Brennan NEUT # 4.1 103/ul Normal 1.4-6.5 The [facility] Comment on above: Performed By: #### H STROPN #### [facility] [address] [place] [address] Dr. Kulwant Brennan Neutrophils/100 WBC (Bld) 59.4 % Normal 43.0-75.0 The [facility] Comment on above: Performed By: #### H STROPN #### [facility] [address] [place] [address] Dr. Kulwant Brennan Platelet mean volume (Bld) [Entitic vol] 9.8 fL Normal 9.5-13.5 The [facility] Comment on above: Performed By: #### H STROPN #### [facility] [address] [place] [address] [address] Kulwant Brennan PLT 201 103/ul Normal 150-450 The [facility] Comment on above: Performed By: #### H STROPN #### [facility] [address] [place] [address] [address] Kulwant Brennan RBC 5.01 106/ul Normal 4.70-6.10 The [facility] Comment on above: Performed By: #### H STROPN #### [facility] [address] [place] [address] [address] Kulwant Brennan WBC 7.0 103/ul Normal 4.0-11.0 The [facility] Comment on above: Performed By: #### H STROPN #### [facility] [address] [place] [address] [address] HEAD WO CONon [...] DONNELL DU Date: 2021-10-03 11:41 Normal The [facility] CTA CHEST WO W CONon 022 CTA [...] DONNELL DU Date: 2021-10-03 11:50 Normal The [facility] ER URINE PROFILEon 2 Bilirubin Ql (U) Negative Normal NEGATIVE [facility] Comment on above: Performed By: #### H STROPN #### [facility] [address] [place] [address] Dr. Kulwant Brennan Clarity (U) CLEAR Normal CLEAR [facility] Comment on above: Performed By: #### H STROPN #### [facility] [address] [place] [address] Dr. Kulwant Brennan Color (U) LT. YELLOW Normal YELLOW [facility] Comment on above: Performed By: #### H STROPN #### [facility] [address] [place] [address] Dr. Kulwant Brennan ERUAHD A micrscopic examina tion will be performed if indicated. Normal The [facility] Comment on above: Performed By: #### H STROPN #### [facility] [address] [place] [address] Dr. Kulwant Brennan Glucose Ql (U) Negative Normal NEGATIVE The [facility] Comment on above: Performed By: #### H STROPN #### [facility] [address] [place] [address] Dr. Kulwant Brennan Hemoglobin Ql (U) Negative Normal NEGATIVE [facility] Comment on above: Performed By: #### H STROPN #### [facility] [address] [place] [address] Dr. Kulwant Brennan Ketones Ql (U) Negative Normal NEGATIVE [facility] Comment on above: Performed By: #### H STROPN #### [facility] [address] [place] [address] Dr. Kulwant Brennan LEUKOCYTES Negative Normal NEGATIVE [facility] Comment on above: Performed By: #### H STROPN #### [facility] [address] [place] [address] Dr. Kulwant Brennan Nitrite Ql (U) Negative Normal NEGATIVE [facility] Comment on above: Performed By: #### H STROPN #### [facility] [address] [place] [address] Dr. Kulwant Brennan pH (U) 5.5 [pH] Normal 5-9 [facility] Comment on above: Performed By: #### H STROPN #### [facility] [address] [place] [address] Dr. Kulwant Brennan SPEC GRAVITY 1.025 Normal 1.005-<=1. 025 [facility] Comment on above: Performed By: #### H STROPN #### [facility] [address] [place] [address] Dr. Kulwant Brennan UA PROTEIN Negative Normal NEGATIVE/ TRACE The [facility] Comment on above: Performed By: #### H STROPN #### [facility] [facility] [address] [place] [address] Dr. Kulwant Brennan UR MICRO IND NOT INDICATED Normal [facility] Comment on above: Performed By: #### H STROPN #### [facility] [address] [place] [address] Dr. Kulwant Brennan Urobilinogen Qn (U) 0.2 {Luis'U}/dL Normal 0.2 - 1. 0 [facility] Comment on above: Performed By: #### H STROPN #### [facility] [address] [place] [address] Dr. Kulwant Brennan PROF 14(COMP METB)on 022 Albumin [Mass/Vol] 3.9 g/dL Normal 3.4-5.0 [facility] Comment on above: Performed By: #### H STROPN #### [facility] [address] [place] [address] Dr. Kulwant Brennan Albumin/Globulin [Mass ratio] 1.0 {ratio} Normal [facility] Comment on above: Performed By: #### H STROPN #### [facility] [address] [place] [address] Dr. Kulwant Brennan ALP [Catalytic activity/Vol] 59 U/L Normal 46-116 [facility] Comment on above: Performed By: #### H STROPN #### [facility] [address] [place] [address] Dr. Kulwant Brennan ALT [Catalytic activity/Vol] 30 U/L Normal 16-63 [facility] Comment on above: Performed By: #### H STROPN #### [facility] [address] [place] [address] Dr. Kulwant Brennan Anion gap [Moles/Vol] 13.4 mmol/L Normal [facility] Comment on above: Performed By: #### H STROPN #### [facility] [address] [place] [address] Dr. Kulwant Brennan AST [Catalytic activity/Vol] 14 U/L Critically low 15-37 [facility] Comment on above: Performed By: #### H STROPN #### [facility] [address] [place] [address] Dr. Kulwant Brennan Bilirubin [Mass/Vol] 0.6 mg/dL Normal 0.2-1.0 [facility] Comment on above: Performed By: #### H STROPN #### [facility] [address] [place] [address] Dr. Kulwant Brennan Calcium [Mass/Vol] 7.6 mg/dL Critically low 8.5-10.1 [facility] Comment on above: Performed By: #### H STROPN #### [facility] [address] [place] [address] Dr. Kulwant Brennan Chloride [Moles/Vol] 107 mmol/L Normal 98-107 [facility] Comment on above: Performed By: #### H STROPN #### [facility] [address] [address] [address] Kulwant Brennan CO2 [Moles/Vol] 24.4 mmol/L Normal 21.0-32.0 [facility] Comment on above: Performed By: #### H STROPN #### [facility] [address] [address] [address] Kulwant Brennan Creatinine [Mass/Vol] 1.36 mg/dL Critically high 0.70-1.30 [facility] Comment on above: Performed By: #### H STROPN #### [facility] [address] [address] [address] Kulwant Brennan EGFR-AF CZECH >60 Normal >=60 [facility] Comment on above: Performed By: #### H STROPN #### [facility] [address] [address] [address] Kulwant Brennan EGFR-NON AF CZECH 52 mL/min/1.73m2 Critically low >=60 [facility] Comment on above: Performed By: #### H STROPN #### [facility] [address] [address] [address] Kulwant Brennan Globulin (S) [Mass/Vol] 3.8 g/dL Normal [facility] Comment on above: Performed By: #### H STROPN #### [facility] [address] [address] [address] Kulwant Brennan Glucose [Mass/Vol] 99 mg/dL Normal 74-106 [facility] Comment on above: Performed By: #### H STROPN #### [facility] [address] [address] [address] Kulwant Brennan Potassium [Moles/Vol] 3.8 mmol/L Normal 3.5-5.1 [facility] Comment on above: Performed By: #### H STROPN #### [facility] [address] [address] [address] Kulwant Brennan Protein [Mass/Vol] 7.7 g/dL Normal 6.4-8.2 [facility] Comment on above: Performed By: #### H STROPN #### [facility] [address] [address] [address] Kulwant Brennan Sodium [Moles/Vol] 141 mmol/L Normal 136-145 [facility] Comment on above: Performed By: #### H STROPN #### [facility] [address] [address] [address] Kulwant Brennan Urea nitrogen [Mass/Vol] 24.0 mg/dL Critically high 7.0-18.0 [facility] Comment on above: Performed By: #### H STROPN #### [facility] [address] [address] [address] Kulwant Brennan Urea nitrogen/Creatinine [Mass ratio] 17.6 mg/mg Normal [facility] Comment on above: Performed By: #### H STROPN #### [facility] [address] [address] [address] Kulwant Brennan PROTIMEon 10-03-2021 INR Coag (PPP) [Relative time] 1.04 {INR} Normal [facility] Comment on above: Performed By: #### P T, PTT ####[facility] [id number] [place], [place] [address]Dr. Kulwant Brennan INR GUIDELINES SEE BELOW Normal The [facility] Comment on above: Result Comment: HAYDEE RED INR: 2.0 - 3.0 CONDITIONS NOT LISTED BELOW 2.5 - 3.5 FOR PROSTHETIC HEART VALVE REPLACEMENT 2.5 - 3.5 RECURRENT THROMBOSIS Performed By: #### P T, PTT ####[facility] [id number] [id number]. Kulwant Brennan PT Coag (PPP) [Time] 11.2 s Normal 9.0-11.6 [facility] Comment on above: Performed By: #### P T, PTT ####[facility] [id number] [id number]. Kulwant Brennan PTTon 10-03-2021 aPTT Coag (Bld) [Time] 33.1 s Normal 22.3-36.2 [facility] Comment on above: Performed By: #### P T, PTT ####[facility] [id number] [place], [place] [address]YpDr. Kulwant Brennan TROPONIN, HIGH SENSITIVITYon 10-03-2021 HSTROP 5.1 pg/mL Normal 4.0-76.1 [facility] Comment on above: Result Comment: CUT- OFF POINTS HAVE BEEN ESTABLISHED BASED ON THE FOURTH UNIVERSAL DEFINITIONS OF MYOCARDIAL INFARCTION. THE UPPER REFERENCE LIMIT (URL) OF TROPONIN, DEFINED THE 99TH PERCENTILE OF cTnI DISTRIBUTION IN A REFERENCE POPULATION, HAS BEEN CONFIRMED THE DECISION THRESHOLD FOR MT DIAGNOSIS. Performed By: #### H STROPN #### [facility] [address] [place], [place] [address] Dr. Kulwant Brennan VC VENOUS REFLUX RIOS LMTon 0 10-03-2021 VC VENOUS REFLUX RIOS LMT Patient: YOLI ANTUNEZ Exam Date: 10/03/2021 : 1955 Gender:M Ordering : YANDEL SHEN Admission #: [id number] Family : Order #: [id number] CLICK HERE TO VIEW EXAM RADIOLOGY REPORT [...] chronic thrombus visualized Compressibility: Normal Flow: Normal Electrotype Molder: Dist/med off PTV 2 mm, 0s reflux; [...] Du M.D. on 10/04/2021 at 12:09 Normal [facility] XR CHEST 1 Von 10-03-2021 XR [...] LUZ ELENA EMERY Date: 2021-10-03 13:00 Normal [facility] ANAon 09-29-2021 KYLE PATTERN NUCLEOLAR Normal [facility] Comment on above: Result Comment: The KHALIDA [...] authority. Performed By: #### 1 0196 #### [facility] [address] KYLE SCREEN 1:40 Normal <1:40,1:40 [facility] Comment on above: Result Comment: Test performed using KHALIDA IFA KYLE Hep-2 Test, a pre-standardized assay designed for the qualitative and semi-quantitative detection of antinuclear antibodies. Performed By: #### 1 0196 #### [facility] [address] C REACTIVE PROTEINon 022 CRP [Mass/Vol] 3.1 mg/L Normal 0.0-7.[address] [facility] Comment on above: Performed By: #### 5 6101, [id number] #### [facility] [address] CYCLIC CITRULLINATED PEPTIDE [place] [address]rs 09-29-2021 CYCLIC CIT PEP 4 Units Normal 0-19 [facility] Comment on above: Result Comment: INTE RPRETIVE [...] be monitored and testing repeated. Performed By: [address] [place] [address] Cloud Solutions Architect: Jaz Villareal MD RHEUMATOID FACTOR SERUMon RA <20 Normal 0-[address] [facility] Comment on above: Performed By: #### 5 6101, 10385 #### [facility] [address] SEDIMENTATION RATEon SED RATE 12 mm/hr High 0-10 [facility] Comment on above: Performed By: #### 5 6506 #### [facility] [address] [facility]. [address] US ANDREW DOP LEG BILon US ANDREW [...] ERICK DEL ANGEL Date: 2021-09-27 16:[address] [facility] [address] Head or Brain w/o Contras [...] 06-27-2021 Albumin [Mass/Vol] 4.9 g/dL Normal 3.6-5.1 [facility] Comment on above: Performed By: #### C MP #### [facility] [address] [place], [place] [id number] Albumin/Globulin [Mass ratio] 1.8 {ratio} Normal 1.0-2.5 [facility] Comment on above: Performed By: #### C MP #### [facility] [address] [place], [place] [id number] ALP [Catalytic activity/Vol] 83 U/L Normal 40-129 [facility] Comment on above: Performed By: #### C MP #### [facility] [address] [place], [place] [id number] ALT [Catalytic activity/Vol] 20 U/L Normal 9-46 [facility] Comment on above: Result Comment: 03/22 Female reference range changed. Performed By: #### C MP #### [facility] [address] [place], [place] [id number] Anion gap [Moles/Vol] 18 mmol/L Normal 12-20 [facility] Comment on above: Result Comment: Effe ctive 04/27/2019 reference range changed. Performed By: #### C MP #### [facility] [address] [place], [place] [id number] AST [Catalytic activity/Vol] 18 U/L Normal 10-40 [facility] Comment on above: Performed By: #### C MP #### [facility] [address] [place], [place] [id number] Bilirubin [Mass/Vol] 0.33 mg/dL Normal 0.30-1.20 [facility] Comment on above: Performed By: #### C MP #### [facility] [address] [place], [place] [id number] BUN/CREA 20 Ratio Normal 6-22 [facility] Comment on above: Performed By: #### C MP #### [facility] [address] [place], [place] [id number] Calcium [Mass/Vol] 8.4 mg/dL Low 8.6-10.2 [facility] Comment on above: Performed By: #### C MP #### [facility] [address] [place], [place] [id number] Chloride [Moles/Vol] 106 mmol/L Normal 98-107 [facility] Comment on above: Performed By: #### C MP #### [facility] [address] [place], [place] [id number] CO2 [Moles/Vol] 24 mmol/L Normal 20-31 [facility] Special[facility] Comment on above: Performed By: #### C MP #### [facility] [address] [place], [place] [id number] Creatinine [Mass/Vol] 1.4 mg/dL Normal 0.7-1.4 [facility] Comment on above: Performed By: #### C MP #### [facility] [address] [place], [place] [id number] eGFRAA 59 mL/min/1.73m2 Low >60 [facility] Comment on above: Performed By: #### C MP #### [facility] [address] [place], [place] [id number] eGFRNAA 49 mL/min/1.73m2 Low >60 [facility] Specialist Comment on above: Performed By: #### C MP #### [facility] [address] [place], [place] [id number] Globulin (S) [Mass/Vol] 2.7 g/dL Normal 1.9-3.7 [facility] Comment on above: Performed By: #### C MP #### [facility] [address] [place], [place] [id number] Glucose [Mass/Vol] 98 mg/dL Normal 65-99 [facility] Specialist Comment on above: Result Comment: For FASTING Glucose --- ADA reference ranges: Normal 65-99 mg/dl Prediabetes 100-125 Diabetes >/= 126 Performed By: #### C MP #### [facility] [address] [place], [place] [id number] Potassium [Moles/Vol] 5.0 mmol/L Normal 3.5-5.5 [facility] [employer] Comment on above: Performed By: #### C MP #### [facility] [address] [place], [place] [id number] Protein [Mass/Vol] 7.6 g/dL Normal 6.1-8.1 [facility] [employer] Comment on above: Performed By: #### C MP #### [facility] [address] [place], [place] [id number] Sodium [Moles/Vol] 143 mmol/L Normal 135-146 [facility] [employer] Comment on above: Performed By: #### C MP #### [facility] [address] [place], [place] [id number] Urea nitrogen [Mass/Vol] 30 mg/dL High 7-25 [facility] [employer] Comment on above: Performed By: #### C MP #### [facility] [address] [place], [place] [id number] Magnesiumon 06-07-2021 Magnesium [Mass/Vol] 2.0 mg/dL Normal 1.5-2.3 [facility] Specialist Comment on above: Performed By: #### V ITD, MG, PHOS #### [facility] [address] [place], [place] [id number] Parathyroid Hormone, Intacto n 06-07-2021 PTH 12.53 pg/mL Low 16.00-65.0 0 [facility] [employer] Comment on above: Performed By: #### P TH* #### [facility] [address] [place], [place] [id number] Phosphoruson 06-07-2021 Phosphate [Mass/Vol] 4.3 mg/dL Normal 2.2-4.4 [facility] Specialist Comment on above: Performed By: #### V ITD, MG, PHOS #### [facility] [address] [place], [place] [id number] Q - CALCIUM,IONIZEDon 2021 CALCIUM, IONIZED 4.0 mg/dL Low 4.8-5.6 [facility] [employer] Comment on above: Order Comment: [facility] performed at: QPT, [facility], [address], [address] [facility], [place], [address], Cloud Solutions Architect: Janes Vasquez MDQuest Collection Date/Time: [id number] Results Received Date/Time: [id number] Reported Date/Time: Performed By: #### C MP, CBCAD, TSH #### [facility] [address] [place], [place] [id number] Vitamin D 25-OHon 06-07-2021 VIT D 25 OH 27 ng/ml Low >29 [facility] [employer] Comment on above: Result Comment: Merlene min D Status Deficiency <20 ng/mL Insufficiency 20-29 ng/mL Optimal 30-100 ng/mL Possible Toxicity >=150 ng/mL Performed By: #### V ITD, MG, PHOS #### [facility] [address] [place], [place] [id number] Complete Blood Count with Au to Diffon 06-06-2021 Basophils (Bld) [#/Vol] 0.04 10*3/uL Normal 0.00-0.20 [facility] [employer] Comment on above: Performed By: #### C MP, CBCAD, TSH #### [facility] [address] [place], [place] [id number] Basophils/100 WBC (Bld) 0.6 % Normal [facility] [employer] Comment on above: Performed By: #### C MP, CBCAD, TSH #### [facility] [address] [place], [place] [id number] Eosinophils (Bld) [#/Vol] 0.28 10*3/uL Normal 0.02-0.50 [facility] [employer] Comment on above: Performed By: #### C MP, CBCAD, TSH #### [facility] [address] [place], [place] [id number] Eosinophils/100 WBC (Bld) 4.1 % Normal [facility] [employer] Comment on above: Performed By: #### C MP, CBCAD, TSH #### [facility] [address] [place], [place] [id number] Erythrocyte distribution width (RBC) [Ratio] 14.5 % Normal 11.0-15.0 [place] [employer] Comment on above: Performed By: #### C MP, CBCAD, TSH #### [facility] [address] [place], [place] [id number] Hematocrit (Bld) [Volume fraction] 43.0 % Normal 38.5-50.0 [facility] Specialist Comment on above: Performed By: #### C MP, CBCAD, TSH #### [facility] [address] [place], [place] [id number] Hemoglobin (Bld) [Mass/Vol] 13.7 g/dL Normal 13.0-17.1 [facility] Special[facility] Comment on above: Performed By: #### C MP, CBCAD, TSH #### [facility] [address] [place], [place] [id number] Lymphocytes (Bld) [#/Vol] 1.6 10*3/uL Normal 0.9-3.9 [facility] Comment on above: Performed By: #### C MP, CBCAD, TSH #### [facility] [address] [place], [place] [id number] Lymphocytes/100 WBC (Bld) 22.6 % Normal [facility] Comment on above: Performed By: #### C MP, CBCAD, TSH #### [facility] [address] [place], [place] [id number] MCH (RBC) [Entitic mass] 26.1 pg Low 27.0-33.0 [facility] Comment on above: Performed By: #### C MP, CBCAD, TSH #### [facility] [address] [place], [place] [id number] MCHC (RBC) [Mass/Vol] 31.9 g/dL Low 32.0-36.0 [facility] Comment on above: Performed By: #### C MP, CBCAD, TSH #### [facility] [address] [place], [place] [id number] MCV (RBC) [Entitic vol] 82 fL Normal 80-100 [facility] Comment on above: Performed By: #### C MP, CBCAD, TSH #### [facility] [address] [place], [place] [id number] Monocytes (Bld) [#/Vol] 0.7 10*3/uL Normal 0.2-0.9 [facility] Comment on above: Performed By: #### C MP, CBCAD, TSH #### [facility] [address] [place], [place] [id number] Monocytes/100 WBC (Bld) 10.1 % Normal [facility] Comment on above: Performed By: #### C MP, CBCAD, TSH #### [facility] [address] [place], [place] [id number] Neutrophils (Bld) [#/Vol] 4.3 10*3/uL Normal 1.5-7.8 [facility] Comment on above: Performed By: #### C MP, CBCAD, TSH #### [facility] [address] [place], [place] [id number] Neutrophils/100 WBC (Bld) 62.0 % Normal [facility] Comment on above: Performed By: #### C MP, CBCAD, TSH #### [facility] [address] [place], [place] [id number] Platelet mean volume (Bld) [Entitic vol] 10.90 fL Normal 7.50-12.50 [facility] Comment on above: Performed By: #### C MP, CBCAD, TSH #### [facility] [address] [place], [place] [id number] Platelets (Bld) [#/Vol] 250 10*3/uL Normal 140-400 [facility] Specialist Comment on above: Performed By: #### C MP, CBCAD, TSH #### [facility] [address] [place], [place] [id number] RBC (Bld) [#/Vol] 5.25 10*6/uL Normal 4.20-5.80 [facility] Comment on above: Performed By: #### C MP, CBCAD, TSH #### [facility] [address] [place], [place] [id number] RDW-SD 43.3 fL Normal 37.0-50.0 [facility] Special[facility] Comment on above: Performed By: #### C MP, CBCAD, TSH #### [facility] [address] [place], [place] [id number] WBC (Bld) [#/Vol] 6.9 10*3/uL Normal 3.8-11.0 [facility] [place] [employer] Comment on above: Performed By: #### C FILIBERTO, CBCAD, TSH #### [facility] [address] [facility] [place] [id number] Comprehensive Metabolic Pane julian 06-06-2021 Albumin [Mass/Vol] 4.7 g/dL Normal 3.6-5.1 Diane [facility] [place] [employer] Comment on above: Performed By: #### C FILIBERTO, CBCAD, TSH #### [facility] [address] [facility] [place] [id number] Albumin/Globulin [Mass ratio] 1.8 {ratio} Normal 1.0-2.5 [facility] [employer] Comment on above: Performed By: #### C FILIBERTO, CBCAD, TSH #### [facility] [address] [facility] [place] [id number] ALP [Catalytic activity/Vol] 87 U/L Normal 40-129 [facility] Specialist Comment on above: Performed By: #### C FILIBERTO CBCAD, TSH #### [facility] [address] [facility] [place] [id number] ALT [Catalytic activity/Vol] 22 U/L Normal 9-46 [facility] [employer] Comment on above: Result Comment: 03/22 Female reference range changed. Performed By: #### C FILIBERTO, CBCAD, TSH #### [facility] [address] [facility] [place] [id number] Anion gap [Moles/Vol] 20 mmol/L Normal 12-20 [facility] [employer] Comment on above: Result Comment: Effe ctive 04/27/2019 reference range changed. Performed By: #### C FILIBERTO, CBCAD, TSH #### [facility] [address] [facility] [id number] AST [Catalytic activity/Vol] 18 U/L Normal 10-40 [facility] [employer] Comment on above: Performed By: #### C FILIBERTO, CBCAD, TSH #### [facility] [address] [facility] [id number] BUN/CREA 19 Ratio Normal 6-22 [facility] [employer] Comment on above: Performed By: #### C FILIBERTO, CBCAD, TSH #### [facility] [address] [place], [place] [id number] Calcium [Mass/Vol] 7.4 mg/dL Low 8.6-10.2 Diane [facility] Comment on above: Performed By: #### C MP, CBCAD, TSH #### [facility] [address] [place], [place] [id number] Chloride [Moles/Vol] 106 mmol/L Normal 98-107 [facility] Comment on above: Performed By: #### C MP, CBCAD, TSH #### [facility] [address] [place], [place] [id number] CO2 [Moles/Vol] 20 mmol/L Normal 20-31 [facility] Specialist Comment on above: Performed By: #### C FILIBERTO, CBCAD, TSH #### [facility] [address] [place], [place] [id number] Creatinine [Mass/Vol] 1.5 mg/dL High 0.7-1.4 [facility] Specialist Comment on above: Performed By: #### C FILIBERTO, CBCAD, TSH #### [facility] [address] [place], [place] [id number] eGFRAA 59 mL/min/1.73m2 Low >60 [facility] Specialist Comment on above: Performed By: #### C FILIBERTO, CBCAD, TSH #### [facility] [address] [place], [place] [id number] eGFRNAA 48 mL/min/1.73m2 Low >60 [facility] Specialist Comment on above: Performed By: #### C FILIBERTO, CBCAD, TSH #### [facility] [address] [place], [place] [id number] Globulin (S) [Mass/Vol] 2.6 g/dL Normal 1.9-3.7 [facility] Specialist Comment on above: Performed By: #### C MP, CBCAD, TSH #### [facility] [address] [place], [place] [id number] Glucose [Mass/Vol] 112 mg/dL High 65-99 Diane garcia [place] [employer] Comment on above: Result Comment: For FASTING Glucose --- ADA reference ranges: Normal 65-99 mg/dl Prediabetes 100-125 Diabetes >/= 126 Performed By: #### C MP, CBCAD, TSH #### [facility] [address] [place], [place] [id number] Potassium [Moles/Vol] 4.3 mmol/L Normal 3.5-5.5 [facility] [employer] Comment on above: Performed By: #### C MP, CBCAD, TSH #### [facility] [address] [place], [place] [id number] Protein [Mass/Vol] 7.3 g/dL Normal 6.1-8.1 [facility] [employer] Comment on above: Performed By: #### C MP, CBCAD, TSH #### [facility] [address] [place], [place] [id number] Sodium [Moles/Vol] 142 mmol/L Normal 135-146 [facility] [employer] Comment on above: Performed By: #### C MP, CBCAD, TSH #### [facility] [address] [place], [place] [id number] TBIL <0.3 Normal [facility] Specialist Comment on above: Performed By: #### C MP, CBCAD, TSH #### [facility] [address] [place], [place] [id number] Urea nitrogen [Mass/Vol] 27 mg/dL High 7-25 [facility] [employer] Comment on above: Performed By: #### C MP, CBCAD, TSH #### [facility] [address] [place], [place] [id number] Q - TROPONIN Ion 06-06-2021 TROPONIN I 3 ng/L Normal < OR = 47 [facility] [employer] Comment on above: Order Comment: [facility] performed at: QPT, [facility], [address] [place] [address], [address] [place] [address], [address], Cloud Solutions Architect: Janes Vasquez MDQuest Collection Date/Time: [id number] Results Received Date/Time: [id number] Reported Date/Time: Result Comment: In accord with published recommendations, serial testing of troponin I at intervals of 2 to 4 hours for up to 12 to 24 hours is suggested in order to corroborate a single troponin I result. An elevated troponin alone is not sufficient to make the diagnosis of MT. Performed By: #### C MP, CBCAD, TSH #### [facility] [address] [place], [place] [id number] TSHon 06-06-2021 TSH 0.917 uIU/mL Normal 0.400-4.50 0 [facility] [employer] Comment on above: Performed By: #### C MP, CBCAD, TSH #### [facility] [address] [place], [place] [id number] CT Chest WO contraston 05-01 IMPRESSION: 1. Mild bronchiectasis in both lower lobes, the right middle lobe and the lingula, consistent with remote or chronic airways inflammation. In this distribution, sequelae of chronic aspiration pneumonitis must be considered. A type III hiatal hernia is noted. 2. Fusiform dilation of the ascending thoracic aorta, stable in appearance since the exam dated 01/05/2021. Refrigeration Engine Operator: [facility] Transcribe Date/Time: May 01 2021 8:27A Dictated by : MASSIMO OAKES MD This examination was interpreted and the report reviewed and electronically signed by: MASSIMO OAKES MD on May 01 2021 8:49AM [facility] DIVISION OF RADIOLOGY * * *Final Report* * * DATE OF EXAM: May 01 2021 8:21AM [facility] 0541 - CT CHEST WO IVCON / [...] A few calcified splenic granulomata are noted. Policy Manager (topogram) images: No additional findings. DIVISION OF RADIOLOGY Provider, [facility] - 05/01/2021 * * *Final Report* * * DATE OF EXAM: May 01 2021 8:21AM [facility] 0541 - CT CHEST WO IVCON / [...] A few calcified splenic granulomata are noted. Policy Manager (topogram) images: No additional findings. IMPRESSION IMPRESSION: 1. Mild bronchiectasis in both lower lobes, the right middle lobe and the lingula, consistent with remote or chronic airways inflammation. In this distribution, sequelae of chronic aspiration pneumonitis must be considered. A type III hiatal hernia is noted. 2. Fusiform dilation of the ascending thoracic aorta, stable in appearance since the exam dated 01/05/2021. Refrigeration Engine Operator: TRACI Transcribe Date/Time: May 01 2021 8:27A Dictated by : MASSIMO OAKES MD This examination was interpreted and the report reviewed and electronically signed by: MASSIMO OAKES MD on May 01 2021 8:49AM EST [facility] Radiology Study observation (narrative) [facility] CT Chest WO contrastOrdered By: [facility] Provider on 05-01-2021 [facility] Coding Summary.on 10-27-2020 Coding Summary. CD:[id number] Gh0bWw+ PGhlYWQ+WH6XLAKoC45amQNxzP4 WK2xFXK0PBVYHGZKWDN6PRB4edF W5OOdsH7IoevEu LdwyoPBaGI51JLy2TXG5zMxcRKv ecD2ixAHaB4g3RiNgFB12aJ50OX kqYINdRvD7OvKebcnytCDl D1nhVsNvlDZfVvj+PHRhYmxlIHd uVSLuLYjiJHDxYgMksCpkLJ2tWp 9yZGVyLWNvbGxhcHNlOiBj u8zbDILeMMxgVN4kyPnqX6ZkxWV 6PJZlj7b1Eb92fXO+DXGjEDG6dV ufHZnfe913IsEfd0rcLTW8 vPIgVVtpOAL1Z07vr8L0XZQfGMP pFAW2tVP5sM7ulLaxxesvO9XgmD PmYqV8DQU8bYSjgP4taSpu sftlzU2yHeg+D23INL7BVEMDTW3 YLkv1U4AkJuiwfOX+LP62OQTpXU 61xDKmsMAmg7wybBo0MgAw YZYqXFZ4nIptSVmbf8RgZKQoJ26 lrXRhr2V0OAUamIeziJHgRuKavV V3rK3oRBecpvokc5gxsofb Kxxav8kxzt82dH41J89lYStjWOJ kCWO3TNVrSIDttJoavp7wkU7eEo 8+DAatn3gnp6xhyJb8WxFg YPJlhqDsnLweLYR2h3BcOi14E1I koSizu2OsSui5np26nJSdf7G9tT H7SPhiWHKnjJ5kQGoeFtS9 HEScCzRxyC95sTFgIRmwTh7koSm amFfiON7pDETgkqdrACSseP5iQE RqmJLztStlBB9zJOSasjvb i653KpWuWNE6VVHsvGFbL4NxrY1 cVuQpOEOlYWVyP5FknAHnXPcjO8 53OKwrOtA6VOZwceNeX1Ab AQSyeKcdBpG2e1U8Tq5Tr7Dubtj tNGK3JQbxYII7PsK6ZnZmEjO1T4 RkRpx6JMFmeLagQB8fL5Gq WERgoyituuaqmEG2OLKaQJFrsO3 1iATjBWzhYj0wd4C3s580OKQiNN WxjH84Jf2fcJoeOPKdvRPP iL8wbpdbp1djwhfhOeMqUXUuFVx 1KNg6HGWteVoyFiMaFRX4TnQ8NT N5gMDdvS9hwRpdtsodjS8d Oyc+R92knU4qSPY7JGM4zqyuDZV cemGnVG82TH34S5WxMwozwUGiyV U+VRTcqbTehFszMC5kKzXj e9exl8YqBOidM3ZvFLFsSQmkAkj 5PXZxMNQ9jCK8zS5dHMBwQAptd5 Y0xWJ2F8OcvmKvre3lu2ko LLQlIGqwU52qkDOip7P1AEPebGG 8MSHqrOiaWdWvoQ42Anv+PGNvbG gdz2HmXzfov2jwk2zohJt6 VgVcMEOuyiSpaPosKLN9w6YsTo0 6Q97tTEdzGPSnNXTcYCJnGJUaqP kknd7znW9mAl4+PGNvbCB3 eCH6kE9sBDGbTtK1OMibD584RwE efRHgSrkzv1ezt7lirWk8KxNuHU IjgbXacIxxQXS2a9YmQh11 K81iICwpEXNfKANrXYGoDQGxcRy mzn9mxM9hWd7+GN2fx1bcyz75hX 48dHI+DSBiIHT8sBosSQjp HDBvtQ1hOYsdLzI4JNMpJoEgeT1 7zRCvBAsmGf0gfFnkeUanMN3yMR Dwwykbb300HlMvh6ziZUHy sVZsOQsxANS3E75yp2A9GFDfJYV xERM7qDQ3jU7nzKojcbnapQCjhZ hiihKapOroAAmbUEnpT408 IHRvcDsnPlBhdGllbnQgTmFtZTo 5W3FrHtq1MQXimXveRW0icCEmOY ytVp9kjWkssApyWE6kDPQi crmjc478BtKsv5luALJvcVZkJOg jHKD8W22rq0O1LFQgCGSwIOX9zD M6sA4pmIzaleghzFFtfYvh ckRztAsfYYkrCCaxU310KFKjnHv eGtIsrxXaSEOapGN7UW26DF59wC Uhp1Z9fDT0L5WiGDUcczsi scmprKS2VKSxACBqqS11Dm6xePo aEw3xOUTeAKN6AGGptJRlW6YunA 0eBbWsDKUqGBZcB2IwlWWm JRosT840MAxaSjV7OTOaqsGlM6J cPPEybRhcRpV3x8V7Yb3VK6U4CN 00EQ15dPKgs2Y1bEC2A5Jj DORdamdzmnhznFC3ICNwMUJmvG1 4Nt9svZjkWf6lUVHnEKE4JPYhzU YeF3QazM9uIaKlGESiJICe T6VbsJPkHNzfJ803PXjdQcE9OFL ylcZbG9EgFFRcqSonWyH6w6U4Rw 9AJVd9GY72RX57pWVvt2V7 rLY0D6IoPDBodkpcihbbwNM8KED bNUIcmX07Xa0ngYbsTu7aQEGrQH V2HCNklVFeK7HskM0pMjPv XNKeMREqF9WicNDuIZakD950DAg wFgC1OXRbeeObI4YsJBOgyGrnBm E4r7A1Yu2WFVOfLR81GYQ3 nFS6GA99KU25T4BtJvqokJFjcSE +PHRhYmxlIHdpZHRoPScxMDAlJy BdiWziET9cCc0vCZAnOKAu eTknrSGoVaVda7epNZHaKDflGM2 auQdqA2GewLB5VXXkt7f8Eo56C7 8zU2UieZM+TPSpdEV8kSH2 jQ7yJjDlWlI2OYsxK880MhEmaSV lDljnc9jer8alqCv3EmT1CLIxvk EqeAdlROC7g2KzNr30L64t IHdpZHRoPSIxNSUiIHZhbGlnbj0 xrQ8vVp7+FXHjfMF2oXW1aC3eSq IwKhV3ASweV122EnUdpMNz Ejkfs4qoz1ryxHt5BwCaTFVazgW kpUvvGTS4o2WyNa80S1HrcSdjb9 ZrAvv8du08cMYvm7P8eOZ9 X0QuIWNmypwseLXpoYfrYB4eIMC xpsyyVRVinZ4pMVUiE1z8ZnKpUt U5BMozS0AnbgC2CBKkeJTs UWkqTOO3S18lc6Y3KYVaQKKwMMG 6hXG3xA0ynHdnwoncvWZbhBedld TugLqqSMrgXGyxX899GSFq uGciJRKhbV0vRQFzuEZraMncFI3 wNTBpbjsnPkFVRFJJVFNIIEpSLC XSGpJNAITGQ5ljEVxhqXQ+ FVMtDZO0wOrzTYkoSWRscG9hNEN fE5o0BiJoFvY3KLmsA7LdLHPglg giWt17sJ2vXyAzAyD4KAlo D6ZxgmQ2NNTqvTSaYHubUJD2R96 sv9V2JNVyEGEtLFA2uBK1wI9mvZ lnbjogbGVmdDsgdmVydGlj MXzrDFivW464HVLdjWaqTwEaXiH gPjV5UMJ1Z4HvCaa6QVHviYtaEN 4ipWRgYXswNx5zmTpceJff ZA6wKJXiruyxYRNxwM5rWMHrnPC pfTsyRI2eWHLqhffpz959IyYkBV W4AOIqqTQcE7YiuL7sRbPb FBLhVCGqW5GsxDYyFMolO579MOm rDiX0AIPtfaYkV4OkARGcpSjpGe C7b7Y9Vd30CxMQCSDqkdyu dGQ+PQOmLWW3uTqoJGnyHEWqxF2 eKBOtL5k5NwPhXdJ3NTzfO1AzVP SbelmdLs72aO9aXvOaUjT7 FOapT1PulbX0PSHpsUOmKKaaPTZ 0L69qd6M7RKAbZOTpWFG9pEB1iO 1hbGlnbjogbGVmdDsgdmVy iZvyXIvyJQcxS246KPVlvPfuPa5 irGH7M9ZwEwn0HAEniZhgDV8baG MtWChmRo4cnFtwbQicEF0l BTMiwicvOZXecJ7dHEUjdVSffIc nXV5mHYUgumhhx072PlOaOZI5ZL AnxYAmS4CbeS2hDiWuBRTj ASEpP0PjdQSgEOweK423IZjiWfL 5AVFawdHvT2FpYOJlqFctIzH9y1 R0Mh1SlADgG9MdO3i9J4Hu PjwvdHI+YX16WBIgII99kDNxiOQ rl8zwlEi1SpXkWLAcWFR4ePqhUL wml2XjBHPuB32qyOUvg2O3 ECNyyAiiiINoSsHzhME0rB8uYJn ydtjfi4twjutbUmsry7fnci94mM 02C52tODqyNEZcPLScOOTn LOWhkZtcrd5adM4cMg7+PGNvbCB 5vQK9oE2iWnXcSxR6HOmjN711Jc EznARfQsbwr9lxd4itwSu4 MyXjVKGgyjFrvZzjCGY8q7WpLt2 6Y21jIAqwTBWjVJQmLXFyNZYpxS nrhj0neQ5zBg3+HS6th6sw tr70tX41qJS+VWRpZRS9qTvvMSy lVXLctC3qJHzzKiS5XRVnWaKagJ 57kNXlOZceDj2pnJslfCpk MZ4kDQRelsxsb262CzEwp4heWRR qpYDsZTgkVGV5O72dl8H3KLWkXA DyKBN1gXB5xI7bmPbcyipi tGHiqUellmGzfMgkNDwxXJtuS45 6VXZkeFfjCuXhyPZzA3ztoqCDNV 1lOjwvdGQ+BBPlNSS1xKwf NNsgYPNwbA0tGNKfB1h7ZdVgWkH 1VNudW1PtmwY0VMQjqYYjFCXndB TEjJ1eacobm2yrqasfUdGo TKXhEDd6BHb8AQFwhBxxMxQbOGL 0KuV1DLT3uZFogZ6xfIffkygqhI 9wOyc+RklOOjwvdGQ+PHRk CZS6tRefUFguXIHnjK3hPRRtI4w 7WlEkVtV6IXlbX9DdegB3IOCqqZ HpEEWuvFLOiP1sxhhsi0zx rmuxDpQaQADyAEk1XTb2BYXopHc sJjZqJBO9TfE0KIM2jFKayC4uuA pzensznX8uYve+TVJOOjwv dGQ+QAQkRGG0eLolXGxzGYOtyQ3 oVLTcX2d2AsHsTxH1HSjaX9Fmtx A9ORTptZAgYUEclHJTyT1a ljgbc8egviucXgHwNSKqCZe5WGk 4QTZkkZlcLaHcLXN4JaB6NDM2cF AdjZ6xxXzrxvgqwD9jNsb+ FBT0HUA9MA90NZ80L4FaHbsxjJE ibGU+PHRhYmxlIHdpZHRoPScxMD DvEzLoeXnsMU3wQh0gYGZj LWNv (more content not included)... Normal [facility] Auto Diffon 10-18-2020 Basophils/100 WBC (Bld) 1.2 % Normal 0.0-2.0 [facility] Comment on above: Order Comment: Order Added by Discern Expert. Performed By: #### 2 073629, [id number], [id number] ####[address] [address] Basophils/Leukocytes Auto (Bld) [Pure # fraction] 0.1 E9/L Normal 0.0-0.2 [facility] Comment on above: Order Comment: Order Added by Discern Expert. Performed By: #### 2 261096, [id number], [id number] ####[facility] [address] [place] [address] Eosinophils/100 WBC (Bld) 1.8 % Normal 0.0-8.0 [facility] Comment on above: Order Comment: Order Added by Discern Expert. Performed By: #### 2 313259, 4436626, [id number] ####[place] [place] [address] Eosinophils/Leukocyt es Auto (Bld) [Pure # fraction] 0.1 E9/L Normal 0.0-0.5 [facility] Comment on above: Order Comment: Order Added by Discern Expert. Performed By: #### 2 440798, 4122439, [id number] ####[facility] [address] [place] [address] Lymphocytes/100 WBC (Bld) 27.6 % Normal 14.0-50.0 [facility] Comment on above: Order Comment: Order Added by Discern Expert. Performed By: #### 2 688771, 0122480, [id number] ####[address] [address] Lymphocytes/Leukocyt es Auto (Bld) [Pure # fraction] 2.1 E9/L Normal 1.0-4.0 [facility] Comment on above: Order Comment: Order Added by Perry Expert. Performed By: #### 2 669942, 1090766, [id number] ####[address] [address] Monocytes/100 WBC (Bld) 9.6 % Normal 4.0-14.0 [facility] Comment on above: Order Comment: Order Added by Perry Expert. Performed By: #### 2 511803, 0192604, [id number] ####[facility] [address] [place] [address] Monocytes/Leukocytes Auto (Bld) [Pure # fraction] 0.7 E9/L Normal 0.2-1.0 [facility] Comment on above: Order Comment: Order Added by Perry Expert. Performed By: #### 2 996416, 1390084, [id number] ####[facility] [address] [place] [address] Neutrophils/100 WBC (Bld) 59.8 % Normal 36.0-75.0 [facility] Comment on above: Order Comment: Order Added by Perry Expert. Performed By: #### 2 191292, 3484698, 45812072 ####[facility] [address] [place] [address] Neutrophils/Leukocyt es Auto (Bld) [Pure # fraction] 4.6 E9/L Normal 2.0-7.5 [facility] Comment on above: Order Comment: Order Added by Discern Expert. Performed By: #### 2 038326, 6412118, [id number] ####[facility] [address] [place] [address] BMPon 10-18-2020 Creatinine [Mass/Vol] 1.5 mg/dL High 0.5-1.3 [facility] Comment on above: Performed By: #### 2 447709, 19678772, 8314777 ####[facility] [address] [place] [address] Urea nitrogen [Mass/Vol] 29 mg/dL High 5-21 [facility] Comment on above: Performed By: #### 2 729975, 89375616, 3578726 ####[facility] [address] [place] [address] Urea nitrogen/Creatinine [Mass ratio] 19 No Units Normal 10-20 [facility] Comment on above: Performed By: #### 2 851570, 24328590, 6448796 ####[facility] [address] [place] [address] Anion gap [Moles/Vol] 11 mmol/L Normal 6-16 [facility] Comment on above: Performed By: #### 2 382852, 50352611, 1190713 ####[facility] [address] [place] [address] Calcium [Mass/Vol] 8.0 mg/dL Low 8.9-11.1 [facility] Comment on above: Performed By: #### 2 626489, 66510925, 7770839 ####[facility] [address] [place] [address] Chloride [Moles/Vol] 107 mmol/L Normal 101-111 [facility] Comment on above: Performed By: #### 2 325584, 34855196, 6412069 ####[facility] [address] [place] [address] CO2 [Moles/Vol] 24 mmol/L Normal 21-31 [facility] Comment on above: Performed By: #### 2 888993, 97768662, 8892619 ####[facility] [address] [place] [address] Glucose [Mass/Vol] 95 mg/dL Normal 55-199 [facility] Comment on above: Result Comment: If t his glucose result represents a fasting glucose, interpretation should refer to the following reference range: 55-99 mg/dL Performed By: #### 2 919283, 49166577, 8728058 ####[facility] [address] [place] [address] Potassium [Moles/Vol] 3.9 mmol/L Normal 3.5-5.3 [facility] Comment on above: Performed By: #### 2 696097, 71212661, 2493406 ####[address] [address] Sodium [Moles/Vol] 138 mmol/L Normal 135-145 [facility] Comment on above: Performed By: #### 2 569241, 75685091, 0964088 ####[facility] [address] [place] [address] CBC w/ Auto Diffon 1 Erythrocyte distribution width (RBC) [Ratio] 15.7 % High 10.9-14.2 [facility] Comment on above: Performed By: #### 2 509611, 4096576, 99208523 ####[facility] [address] [place] [address] Hematocrit (Bld) [Volume fraction] 39.9 % Normal 37.7-49.0 [facility] Comment on above: Performed By: #### 2 122091, 5386456, 06097697 ####[facility] [address] [place] [address] Hemoglobin (Bld) [Mass/Vol] 13.3 g/dL Low 13.5-17.5 [facility] Comment on above: Performed By: #### 2 117258, 0417245, 25432303 ####[facility] [address] [place] [address] MCH (RBC) [Entitic mass] 27.1 pg Normal 27.0-34.0 [facility] Comment on above: Performed By: #### 2 417235, 0087184, 84395661 ####[address] [address] MCHC (RBC) [Mass/Vol] 33.3 g/dL Normal 31.4-36.0 [facility] Comment on above: Performed By: #### 2 535787, 2672012, 28331011 ####[address] [address] MCV (RBC) [Entitic vol] 81.4 fL Normal 80.0-100.0 [facility] Comment on above: Performed By: #### 2 680569, 1379321, 52064370 ####[address] [address] Platelet mean volume (Bld) [Entitic vol] 9.2 fL Normal 6.4-10.8 [facility] Comment on above: Performed By: #### 2 705434, 0222710, 20662935 ####[address] [address] Platelets (Bld) [#/Vol] 223.0 E9/L Normal 150.0-500. 0 [facility] Comment on above: Performed By: #### 2 716811, 7087477, 47243651 ####[address] [address] RBC (Bld) [#/Vol] 4.9 E12/L Normal 4.3-5.9 [facility] Comment on above: Performed By: #### 2 015498, 9403894, 30928987 ####[address] [address] WBC corrected for nucl RBC Auto (Bld) [#/Vol] 7.6 E9/L Normal 4.0-11.0 [facility] Comment on above: Performed By: #### 2 622644, 0327986, 52175583 ####[facility] [address] [place] [address] Capillary Glucose POCon 09-21 Glucose [Mass/Vol] 118 mg/dL High 55-99 [facility] Comment on above: Result Comment: Erika heart RN/ Performed By: #### 2 [id number] ####[facility] [address] [place] [address] Consent for Treatmenton 09-21 Consent for Treatment [id number]:127 Normal [facility] Discharge Instructionson Discharge Instructions [id number]:127 Normal [facility] ED Clinical Summaryon 2020 ED Clinical Summary (Inserted Image. Daya ble to display) [place] [id number] ED Clinical Summary Person Information Name: YOLI ANTUNEZ JR Yazmin/[facility] Age: 65 Years : 1955 Sex: Male Language: Eritrean PCP: RADHA BURRIS MD Marital Status: Visit [...] 10/18/2020 10:31:18 10/18/2020 10:31:18 10/18/2020 10:31:18 ADDRESS: [address] [place] [id number] PHYS DOC NOTES: MEDICAL INFORMATION: Prescriptions Given: [...] days 10/21/2020 With: Address: When: RADHA BURRIS [address] [place] [phone] [facility] () In 3 days DIAGNOSIS: AF (paroxysmal atrial fibrillation) Normal [facility] ED Note-Physicianon 10-19-19 ED Note-Physician Basic Information [...] taken off his metoprolol at that time. Executive Director [employer] is Dr. Modi at [facility]. Troponin negative. Electrolytes unremarkable. CBC with baseline [...] normal sinus rhythm. I called the patient's bobbin inspector Dr. Joshi. We discussed the patient's history, presentation, diagnostic work-up, vitals. After this discussion he reports the patient is okay to follow-up with him as an outpatient. He will call the patient and schedule a pacemaker visit. I discussed the bobbin inspector recommendations with the patient. He would like discharge home. I did offer the patient admission for further work-up and treatment for his chest discomfort which he declined. He does not wish to stay for second troponin level. Return precautions were discussed. He was instructed follow-up with his primary care doctor and bobbin inspector. Patient expresses understanding of agreement this plan. [...] IV Disposit (more content not included)... Normal [facility] Comment on above: Result Comment: Elec tronically [...] diagnosed with: ? Electrocardiogram (ECG). ? Ambulatory radiation monitor. This device records your heartbeats for 24 [...] a stroke (more content not included)... Normal [facility] ED Patient Summaryon 021 ED Patient Summary (Inserted Image. Daya ble to display) [place] [id number] Patient Discharge Instructions Person Information Name: YOLI ANTUNEZ JR Age: 65 Years Arrival Date: 10/18/2020 07:56:12 Discharge Diagnosis: AF (paroxysmal atrial fibrillation) Primary Care Physician: RADHA BURRIS MD Provider Information Primary Provider: Oscar Sandoval DO Advanced Cascara Bark Cutter:None The exam and treatment you received in the Emergency Department were for an urgent problem and are not intended as complete care. It is important that you follow up with a doctor, nurse practitioner, or physician?s educational assistant for ongoing care. If your symptoms [...] days 10/21/2020 With: Address: When: RADHA BURRIS [facility] [place], [place] [id number] [facility] (1) In 3 days In the event that this physician does not participate in your insurance network, please consult with your insurance company to find a nearby participating provider. Patient Education Materials: Atrial Fibrillation A MESSAGE TO ALL PATIENTS REGARDING OPIOIDS PRESCRIPTION OPIOIDS: WHAT YOU NEED TO KNOW Prescription opioids can be used to help relieve nvcabpch-pb-uqjcyo pain and are often prescribed following a [...] your heal (more content not included)... Normal [facility] Magnesiumon 10-18-2020 Magnesium [Mass/Vol] 2.0 mg/dL Normal 1.3-2.4 [facility] Comment on above: Performed By: #### 2 636193, 88244244, 6041391 ####[facility] [address] [place] [address] Troponin 0 Hr.on 10-18-2020 Troponin I.cardiac [Mass/Vol] 3.00 pg/mL Low 15.90-38.4 0 [facility] Comment on above: Result Comment: The 95% CI (Confidence Interval) PPV (Positive Predictive Value) for myocardial infarction in females is 38 pg/mL, in males 51 pg/mL. The results should be used in conjunction with clinical conditions of myocardial infarction. (Access High Sensitivity Troponin I Instructions For Use, drchrono, November 2017) Performed By: #### 2 559129, 2027031, [id number] ####[facility] [address] [place] [address] XR Chest Single Viewon 10-18 XR Chest [...] V. Transcribed by: MALINI Technologist: JUWAN Normal [facility] eGFRon 10-18-2020 GFR/1.73 sq M.predicted among blacks MDRD (S/P/Bld) [Vol rate/Area] 57 mL/min/1.73 m2 Low >=59 [facility] Comment on above: Order Comment: Order added by Discern Expert. Result Comment: eGFR is race adjusted. AA=. Performed By: #### 2 855676, 04544582, 2308262 ####[facility] [address] [place] [address] GFR/1.73 sq M.predicted among non-blacks MDRD (S/P/Bld) [Vol rate/Area] 47 mL/min/1.73 m2 Low >=59 [facility] Comment on above: Order Comment: Order added by Discern Expert. Result Comment: Medical Art Therapist nikki kidney disease could be indicated at eGFR's of less than 60 mL/min/1.73m2. Kidney failure is indicated at less than 15 mL/min/1.73m2. Performed By: #### 2 373287, 88787256, 8170759 ####[facility] [address] [place] [address] Coding Summary.on 09-22-2020 Coding Summary. CD:[id number] Gh0bWw+ PGhlYWQ+OC9UVPQcH32nbNIfxZ9 TD4nYSQ7SPLSYWZTIDN2RAH3ddO U0RVzxX1RmfwQv GlvhdTSxBP36TDo1KFS0kDtdPWp xbY3vdKLbY9y3WmOuGT24tB95CY okVSQkJaP1IqCgoxbwbLGo I6hbUxVlvVTnGbf+PHRhYmxlIHd uWMIiMMkuUDClQhJrjUuuQB0fMn 9yZGVyLWNvbGxhcHNlOiBj b7rgGLAdXGakQX6lgFzlL7UezUE 9IPPco0r9Ec88iFX+NVOqKZM2wO zbZYpec011RnQlf3kmHKR0 cHSkXGvdYJA3O01zp1Q3YVEeIYX jUUF2qKA7rI9hbHcdjwvaL3QfkW UmErK9KRS1yOPxdF0rvIad lmhwoE9aAjx+M02GUQ3PJQPSYX3 BGil4O1FpEcwivEV+XT93LYTmTC 89tWPgrKEbs2bnkUk0IiUq PINrFUI6gHtpXHctj0TjEJQoJ48 obGVhq7Q5GXMboLycqEGcMqIkkV L6sE6nZLcrayrqb9uozhbl Ileiy0otim88oZ88G60rCStnOCF dLEQ9ZQRxHOUugWbtgo0soN7rHz 8+SEswz7nrp2tiiRq0RjCj JYVhmwPrmEniBLM9j1HqKj79J4T jnLuiq3FuNqc8zw98bKNyo3M9tX T1BIxqODWvfG2vDVhpIlO9 BGNuPuIppV30vNYqEFeqHl1umKs geXwyOK3sCVRabrczOZBiyD2iWT SqfPPceMloOL3pQZTcoire f145JoRoTXV7MKMyhWDtA7LatW8 nWfMiQVJjKNZbW1AexVMfZJrtO7 41PZzuGwE5MUCulrCeJ8Sk KBWxqZcfDsM1g6L3Lb8Ef4Mmjvd mXPA6QQvqDJK0CrMfWyErSbS6H6 AaMfc1ZYEinYfeVT2lG9Cv QAToteszeetsfLQ8BTUqOCXtmL7 5aIJyLJwfRg0uh4M9f727BFEsQZ SbfX61Ua7kgEiiWXConPFK oG6rabcbg1dithumOpEvBLFwDFt 2YAp6TTYxxFimFuRcXRS5XfR1TL E3gFDcgX9tcShncvvweS9y Oyc+W01fjU4iIHE7IUI0ieszYZS draGxEC53MX06U8FgRqtwfONrkU U+XOFhudRmoXirQU0tTeIp i1vnc0NpHMeeQ9MyWDXdJTgnEar 3QMIgGUM4oHU7wY1hFMNoKKweg9 S1aYT4B4BohrFqju7fx9xz AVEaAFykO54nqTKju8O5DDFdsQM 9YAXxjAmqLoVckE77Uxm+PGNvbG hrj2HlGggwo4yet6tbkGg3 UfLaPTUiuzEodYvbRYE8c0OhEo3 2U68wIQkqRZKgPVZvIMWeTVGmeM zjzf4dxS1lXa5+PGNvbCB3 cSK9gJ7iGXLlBcW4QWwwT094ItY fqSKlNdbsf5ovc4iixNf4QrLsCV NvflSvuFtfETG9z1JzSq47 S77rSXhiEEIiDFBrBJQzELLxiTq yaw2msX6wOi2+PQ3ot6habu21sU 48dHI+BBCdYDW4sUteXLlh HLGamW3xCBfuAhE5MATnVvNbtM5 1xTCnIStmGx0ewHfbhLexIR5sLM Lawbjre529JoGda7fgJGQl hFZoSZbqKYC6F83fk2I1YDBbTHR sXCH8cPE8jG9xuMxrqdbllMQjlT jlhfFxePjiMEqrDFysB129 IHRvcDsnPlBhdGllbnQgTmFtZTo 1X2DgOsw1UWIpvTreYO6upLMjQV ltFo2szZwzsUpkMJ6aLZZo gzhav531XoNjx7dtTTNveAKuXMw nORG4K09sv0T2LOMfNQOwCKE7qX F7cP4fpZncqokyyUIawCia ehEypTiwYVsnCBncD244MSBvnCo xRpJqboJmOYXdaWD6PI53CC11yU Fef3N6mXM0S7QtWOVbajqc mhgzsQI0OFVlBVQxtY44Cd7lfVh pXq4tTMWoWNJ7JVGolBKcY4NdrO 2lSzLrHGDrBOFlC4VziMOd RNcnN248ZUrdJbP3NJXgxfUbL8C tXUNggYnlPyD2p0Z6Ii6LF9J8SR 15DU47lPJbs7V9yMY5M7Om BIKnyuhufpdjgGT3ROWyPENmhJ4 1Tz8knCljPr2lFVKaXQR0VTDpjP TeV8CpgX9sYhElENWyFMRo G6BazDRgAZlmW745VFsgRoC6EAQ ehvLwJ8TgCXEtoCvzSqN8c6J5Xf 9KKCe3OG58YO17eEXry9Q8 eFF0R5YbAHEglmbvxmlctQZ9MHZ xNUGngH30Rc4hxFfyWl6qMCZaTT I5FQQdzEKiX9AffP0dNcXz TLCzDOFhM2VggCKbEVvaX426DJn qMaU8BNHfgtMjX1XeLDUeiOffPy S4x4O7Nn6YGIGbHF99PHS6 dBV5GV74UG65W3NlDounnSGekOX +PHRhYmxlIHdpZHRoPScxMDAlJy WkcSwkKF7xWt3aFLBnBIRo dWoexSUcIgIpl5lkBKLuATczLI3 vmAyuQ4XpaGC7XVZcw0b1Pv61L2 6bJ5AbzSS+CXOegEC2eSH7 mR0fDlAdOdT7BImcM272EoEvzWZ fYpaim9oxn7yxuIe7AmV4NSXxmt LgaNbaVET5z5FlUh78F50x IHdpZHRoPSIxNSUiIHZhbGlnbj0 xqH3fWc4+SGQzvLS5nFN8mG3zAl OmJcH9ZErmQ268HuFnaFNn Unwqc1exs7nrlLj4JyNkPRHzzpZ uyUqlMYR6w4RaIr41K1GkpIssy9 XgOzl6ap83nAOox1F3nRC9 B6VoKOVdorrtjITevFqlDO3oPJR skregLKAnkJ5bKAJmD8c9PzXdRf V6XKsjP8YkaqK3PIJdhXWc ECnaLCT7S91pm3A2CRVpMRJgTYM 4tKL7bE9qaNoxmeqopLMhlAbcjb ExkDdeVUgjZKhrO701RRIt nFjoMWBwcU8dBMCdbMJsjZhgDD9 wNTBpbjsnPkFVRFJJVFNIIEpSLC DRHnPSTOWFA4jgBGtfmQB+ KQKcVTW0nYviMOrmECCtdI5zFJG xS2a9XhKeTcL2DJcqO7HbGHVrra nnGh90hX3zMcIjTnF0WFfz X6HhfiU1QRWhjQPlYLkfVRF5Q09 kz3B9KJQkICCjHDU9iBR9kU3xpE lnbjogbGVmdDsgdmVydGlj TAwqADknZ084YVFziIisRcQgTrQ uFhR9KFG8S7PqHqi0RKUxxWdaHV 0tcRPoRTdcRv2wkVkozZrr BD9jZADbrspvCBLaaF6cLELahVU otLweBG8bFOMdffahg143IzZsFL K1RTUfcYHaQ3EgzR2pDbGe ZAKsUFThE4LmcDQoQHlvZ310BNy lVkB3YFHmgjJqQ9GdHTNghYnxDm N3i4F1Xf19SdLAARSukbhd dGQ+JYGwYBE1aMlqKWtbSCNdtM7 bATQgG8f7QtTgYgQ3FVbfV0TgOM RsidgbNo44dR2xSiSpBiK2 MDbxA2DttdV4HFUgbIXnRRzoWOR 8O32ju7D5RWJfJDRcKJW7pOS8jS 1hbGlnbjogbGVmdDsgdmVy cBtyCAwuTZipV845GYTbzWyxQx2 fyTF2H7JjShc9KZBycGtpTN6ubY NaEPevAp4izLyspUdvPN3i AORtullvOSMxtO7zWAIfvSHvqEv fKW2vCHDhqamxj663SvGcCMR3LB SbbCNzK3YtzV9yReGpYBEv XGIjG9VxvHZyYZxhH137KJjoNtL 6IJYdaiYmO3BzTQGtvPmrDaY1a9 O5Ck2SyQEcH5GvM6r7T4Rz PjwvdHI+YN35XTWdAG72uHBawDS ny3gvhNm7GyKyPJAaJUP1eWwgEV mml2OaECIqT88ziKWhp4X9 FUEruNypyUAxSpNvmCA7gY8uUXz mffktr7mrinniYfuxw4kuye69fM 70Q62wGXiuKSDvDYQeVVVg TCScmHtakw1yiI6lWd7+PGNvbCB 7lZZ1zQ8iFmBaEdF6EIuyB855Ko QfdYJdIklav3hgw7piqTz3 IvVnNCUcftNbiUvcTJM1p7CqIc8 8Y50lLWawWLFpVQWgHBKkDDWjuJ vkxz2tzK9aMq8+GP1ny3ed et62rR38dFP+DUUoJSN0hXysRHw wANTotE8iDPmdGhR0AGXrGkSlcD 26iMDuDTodGu7koLjoqYme NI0pBFVzjadbz356EmRvz4vdAMC zoMOrTRytTKM0Z42og9G5JQFlWW GxWTR9fUA7oQ8btFigdnhm yQApbMxkgdXkfOrlPVwsCBrnM26 4EIYsoJiqIyPasEAqB1laseGQHR 1lOjwvdGQ+BJEhVQJ0jIhq FVfjZPIziB9sJONfO5v7SuZuGdF 5OZoxV4KktqU6IQIlkXSyILYgkE XHmO8arxuul7uamypyLfUs IEStZOq3ICo5UZSdaFwdHfNlBGO 5KrK4ZVK8hCJaaU0nfLhdfppxjR 9wOyc+RklOOjwvdGQ+PHRk IUR6fKubDFptNZFhlM4xEFPlH3y 3JsPkLyC0UFxmW0KndbP3IKFmyP UuAUTrcXUHuJ8ognekw0hv kieuTmEiYLQhAXi9QUd3BBRphDt qGcDtQAX8IbP4IAE0mEZicD5ktR axazjkgG6oDpa+TVJOOjwv dGQ+BRUpFXI7sWhwXDexKEJrrT1 oOLJtA7j8JcLoLqS0BIruU9Kocc V5ZUJktLFfWSPiuBWGnD6h vqpga1zunaybLzWiJSMvTIz1HZi 8YHUovWslJyRfOSJ6QiI5NRP5aZ MidL7qpDbtkzbelO6cBui+ LWV8AZU9UJ23MD35G0PyQvjmmUF ibGU+PHRhYmxlIHdpZHRoPScxMD QrNtAxoAkhSP7bYi5yKDYc LWNv (more content not included)... Normal [facility] Auto Diffon 09-13-2020 Basophils/100 WBC (Bld) 0.6 % Normal 0.0-2.0 [facility] Comment on above: Order Comment: Order Added by Discern Expert. Performed By: #### 1 5990933, 9269682, 59726242, 9419191, 1584199 #### [facility] [address] [place] [address] Basophils/Leukocytes Auto (Bld) [Pure # fraction] 0.0 E9/L Normal 0.0-0.2 [facility] Comment on above: Order Comment: Order Added by Discern Expert. Performed By: #### 1 4922945, 3704598, 32051411, 4246281, 3726487 #### [facility] [address] [place] [address] Eosinophils/100 WBC (Bld) 2.9 % Normal 0.0-8.0 [facility] Comment on above: Order Comment: Order Added by Discern Expert. Performed By: #### 1 6051320, 1586697, 62533244, 6803597, 6252173 #### [facility] [address] [place] [address] Eosinophils/Leukocyt es Auto (Bld) [Pure # fraction] 0.2 E9/L Normal 0.0-0.5 [facility] Comment on above: Order Comment: Order Added by Perry Expert. Performed By: #### 1 4046948, 9077794, 13146721, 5597708, 6748076 #### [facility] [address] [place] [address] Lymphocytes/100 WBC (Bld) 27.2 % Normal 14.0-50.0 [facility] Comment on above: Order Comment: Order Added by Perry Expert. Performed By: #### 1 3936613, 4831407, 85341037, 5552638, 0362359 #### [facility] [address] [place] [address] Lymphocytes/Leukocyt es Auto (Bld) [Pure # fraction] 2.0 E9/L Normal 1.0-4.0 [facility] Comment on above: Order Comment: Order Added by Perry Expert. Performed By: #### 1 3206926, 8269623, 25274578, 5646515, 5220998 #### [facility] [address] [place] [address] Monocytes/100 WBC (Bld) 7.9 % Normal 4.0-14.0 [facility] Comment on above: Order Comment: Order Added by Discern Expert. Performed By: #### 1 9011216, 9590042, 13650375, 2009617, 5428048 #### [facility] [address] [place] [address] Monocytes/Leukocytes Auto (Bld) [Pure # fraction] 0.6 E9/L Normal 0.2-1.0 [facility] Comment on above: Order Comment: Order Added by Discern Expert. Performed By: #### 1 2183232, 1063510, 25304558, 1379173, 4805069 #### [facility] [address] [place] [address] Neutrophils/100 WBC (Bld) 61.4 % Normal 36.0-75.0 [facility] Comment on above: Order Comment: Order Added by Discern Expert. Performed By: #### 1 7208628, 3025017, 31395711, 8111728, 2315537 #### [facility] [address] [place] [address] Neutrophils/Leukocyt es Auto (Bld) [Pure # fraction] 4.5 E9/L Normal 2.0-7.5 [facility] Comment on above: Order Comment: Order Added by Discern Expert. Performed By: #### 1 5288749, 0892695, 76593496, 0977848, 9889709 #### [facility] [address] [place] [address] BMPon 09-13-2020 Anion gap [Moles/Vol] 13 mmol/L Normal 6-16 [facility] Comment on above: Performed By: #### 1 6263474, 9428501, 01755598, 2412487, 1347964 #### [facility] [address] [place] [address] Calcium [Mass/Vol] 7.0 mg/dL Abnormal 8.9-11.1 [facility] Comment on above: Result Comment: Crit ical Result verified by repeat analysis\Critical Result S_CA.0 Called to FABIÁN HUYNH AT ER by QUAN SWEET And Read Back For Confirmation at: 09/13/2020 09:41:51 Performed By: #### 1 4777952, 3146602, 81191075, 0721133, 4265069 #### [facility] [address] [place] [address] Chloride [Moles/Vol] 110 mmol/L Normal 101-111 [facility] Comment on above: Performed By: #### 1 4433800, 3366549, 01300815, 2847659, 1729129 #### [facility] [address] [place] [address] CO2 [Moles/Vol] 22 mmol/L Normal 21-31 [facility] Comment on above: Performed By: #### 1 6940593, 9740471, 66628196, 3221773, 9409172 #### [facility] [address] [place] [address] Creatinine [Mass/Vol] 1.5 mg/dL High 0.5-1.3 [facility] Comment on above: Performed By: #### 1 6232137, 2639104, 06750370, 2960412, 8343792 #### [facility] [address] [place] [address] Glucose [Mass/Vol] 111 mg/dL Normal 55-199 [facility] Comment on above: Result Comment: If t his glucose result represents a fasting glucose, interpretation should refer to the following reference range: 55-99 mg/dL Performed By: #### 1 9521725, 4490117, 00605953, 9130082, 3499361 #### [facility] [address] [place] [address] Potassium [Moles/Vol] 4.2 mmol/L Normal 3.5-5.3 [facility] Comment on above: Performed By: #### 1 4373988, 1448678, 47887727, 4353305, 7665538 #### [facility] [address] [place] [address] Sodium [Moles/Vol] 141 mmol/L Normal 135-145 [facility] Comment on above: Performed By: #### 1 6960232, 0945036, 77887049, 7580245, 1120464 #### [facility] [address] [place] [address] Urea nitrogen [Mass/Vol] 26 mg/dL High 5-21 [facility] Comment on above: Performed By: #### 1 1016727, 1552294, 70774199, 5298492, 3395915 #### [facility] [address] [place] [address] Urea nitrogen/Creatinine [Mass ratio] 17 No Units Normal 10-20 [facility] Comment on above: Performed By: #### 1 9624371, 3209059, 64126881, 0473325, 3015316 #### [facility] [address] 8[address]2357 CBC w/ Auto Diffon Erythrocyte distribution width (RBC) [Ratio] 15.3 % High 10.9-14.2 [facility] Comment on above: Performed By: #### 1 5654246, 2868680, 65298775, 6744840, 5328200 #### [facility] [address] [place] [address] Hematocrit (Bld) [Volume fraction] 34.6 % Low 37.7-49.0 [facility] Comment on above: Performed By: #### 1 1306453, 9470612, 88233879, 7018219, 4617273 #### [facility] [address] [place] [address] Hemoglobin (Bld) [Mass/Vol] 11.4 g/dL Low 13.5-17.5 [facility] Comment on above: Performed By: #### 1 8055151, 1211649, 96473897, 8687474, 3406232 #### [facility] [address] [place] [address] MCH (RBC) [Entitic mass] 26.9 pg Low 27.0-34.0 [facility] Comment on above: Performed By: #### 1 7428617, 0667810, 55623342, 3148243, 9536837 #### [facility] [address] [place] [address] MCHC (RBC) [Mass/Vol] 32.9 g/dL Normal 31.4-36.0 [facility] Comment on above: Performed By: #### 1 0963284, 4399430, 65277462, 6431223, 1292533 #### [facility] [address] [place] [address] MCV (RBC) [Entitic vol] 81.8 fL Normal 80.0-100.0 [facility] Comment on above: Performed By: #### 1 7743868, 5787735, 15261403, 3490667, 4711179 #### [facility] [address] [place] [address] Platelet mean volume (Bld) [Entitic vol] 9.4 fL Normal 6.4-10.8 [facility] Comment on above: Performed By: #### 1 4803168, 2812263, 72515693, 0228703, 0968114 #### [facility] [address] [place] [address] Platelets (Bld) [#/Vol] 237.0 E9/L Normal 150.0-500. 0 [facility] Comment on above: Performed By: #### 1 6343163, 3987900, 09276047, 7636488, 0966141 #### [facility] [address] [place] [address] 517[address] RBC (Bld) [#/Vol] 4.2 E12/L Low 4.3-5.9 [facility] Comment on above: Performed By: #### 1 5348377, 5884941, 60006552, 0838468, 9106350 #### [facility] [address] [place] [address]12[address] WBC corrected for nucl RBC Auto (Bld) [#/Vol] 7.3 E9/L Normal 4.0-11.0 [facility] Comment on above: Performed By: #### 1 7399271, 0263679, 10549062, 6518246, 7563030 #### [facility] [address] [place] [address] CT Head or Brain w/o Contras ton [...] Shirley MD Transcribed by: MALINI Technologist: Normal [facility] Capillary Glucose POCon 08-21 Glucose [Mass/Vol] 110 mg/dL High 55-99 [facility] Comment on above: Performed By: #### 2 49415198 ####[facility] [address] [place] [address] Consent To Leave AMAon 09-13 Consent To Leave AMA [id number]:127 Normal [facility] Consent for Treatmenton 08-21 Consent for Treatment [id number]:127 Normal [facility] Discharge Instructionson Discharge Instructions [id number]:127 Normal [facility] ED Clinical Summaryon 2020 ED Clinical Summary (Inserted Image. Daya ble to display) [place] [id number] ED Clinical Summary Person Information Name: YOLI ANTUNEZ JR Yazmin/[facility] Age: 65 Years : 1955 Sex: Male Language: Eritrean PCP: RADHA BURRIS MD Marital Status: Visit [...] 09/13/2020 10:52:16 09/13/2020 10:52:16 09/13/2020 10:52:16 ADDRESS: [address] [place] [id number] PHYS DOC NOTES: MEDICAL INFORMATION: Prescriptions Given: [...] Instructions: Follow up: With: Address: When: [place] [address] [phone] Business (1) In 1 day 09/14/2020 With: Address: When: RADHA BURRIS [address] [place], [place] [phone] Business (1) In 3 days DIAGNOSIS: Angina pectoris; Cephalgia Normal [facility] ED Note-Nursingon 09-13-2020 ED Note-Nursing dc instructions revi ewed, pt verbalized understanding. Normal [facility] ED Note-Nursing Dr. Low spoke wi th pt., pt does not want to be admitted, AMA paperwork filled out. 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 Normal [facility] ED Note-Nursing Thomas from pharmacy in and speaking with pt about his med list, pt informed he is TBA Normal [facility] ED Note-Physicianon 09-14-19 ED Note-Physician Basic Information [...] had multiple ablations and sees cardiology in [place]. He denies any history of CAD but [...] me he will follow up with his bobbin inspector in the outpatient setting. The patient wishes [...] and still (more content not included)... Normal [facility] Comment on above: Result Comment: Elec tronically Signed By: Bhavesh Low DO\.br\Date and Time Signed: 09/13/20 10:42 EDT ED Patient Education Noteon 09-13-2020 ED Patient Education Note Normal [facility] ED Patient Summaryon ED Patient Summary (Inserted Image. Daya ble to display) [place] [id number] Patient Discharge Instructions Person Information Name: HARMONY YOLI Peoples Age: 65 Years Arrival Date: 09/13/2020 08:43:38 Discharge Diagnosis: Angina pectoris; Cephalgia Primary Care Physician: RADHA BURRIS MD Provider Information Primary Provider: Bhavesh Lwo DO Advanced Cascara Bark Cutter:None The exam and treatment you received in the Emergency Department were for an urgent problem and are not intended as complete care. It is important that you follow up with a doctor, nurse practitioner, or physician?s educational assistant for ongoing care. If your symptoms [...] Follow-up Instructions: With: Address: When: [place] [phone] Business (1) In 1 day 09/14/2020 With: Address: When: RADHA BURRIS [address] [place], [place] [phone] Business (1) In 3 days In the event that this physician does not participate in your insurance network, please consult with your insurance company to find a nearby participating provider. Patient Education Materials: A MESSAGE TO ALL PATIENTS REGARDING OPIOIDS PRESCRIPTION OPIOIDS: WHAT YOU NEED TO KNOW Prescription opioids can be used to help relieve bzsngxyg-zv-zjlagx pain and are often prescribed following a [...] be struggling with addiction, tell your health memory care program director (more content not included)... Normal [facility] Monitor Recordon 09-13-2020 Monitor Record [id number]:127 Normal [facility] Monitor Record [id number]:127 Normal [facility] Troponin 0 Hr.on 09-13-2020 Troponin I.cardiac [Mass/Vol] 2.70 pg/mL Low 15.90-38.4 0 [facility] Comment on above: Result Comment: The 95% CI (Confidence Interval) PPV (Positive Predictive Value) for myocardial infarction in females is 38 pg/mL, in males 51 pg/mL. The results should be used in conjunction with clinical conditions of myocardial infarction. (Access High Sensitivity Troponin I Instructions For Use, Bret Washington, November 2017) Performed By: #### 1 9556486, 4470246, 60022676, 7871890, 5325695 #### [facility] [address] [place] [address] XR Chest Single Viewon 09-13 XR Chest [...] Ashby M.D. Transcribed by: MALINI Technologist: HE Carlota [facility] eGFRon 09-13-2020 GFR/1.73 sq M.predicted among blacks MDRD (S/P/Bld) [Vol rate/Area] 57 mL/min/1.73 m2 Low >=59 [facility] Comment on above: Order Comment: Order added by Discern Expert. Result Comment: eGFR is race adjusted. AA=. Performed By: #### 1 2152687, 9138034, 31927062, 7194550, 0227347 #### [facility] [address] [place] [address] GFR/1.73 sq M.predicted among non-blacks MDRD (S/P/Bld) [Vol rate/Area] 47 mL/min/1.73 m2 Low >=59 [facility] Comment on above: Order Comment: Order added by Discern Expert. Result Comment: Medical Art Therapist nikki kidney disease could be indicated at eGFR's of less than 60 mL/min/1.73m2. Kidney failure is indicated at less than 15 mL/min/1.73m2. Performed By: #### 1 5492483, 4164650, 29355709, 1411082, 4814312 #### [facility] [address] [place] [address] Coding Summary.on 01-25-2020 Coding Summary. CODING DATE: 020 FINAL [facility] STATUS: Home (Routine DC) PAYOR: Medicare APC [...] Revised Date Saved: 01/25/2020 02:44 pm Normal [facility] Discharge Instructionson Discharge Instructions [id number]:127 Normal [facility] Auto Diffon 01-19-2020 Basophils/100 WBC (Bld) 0.8 % Normal 0.0-2.0 [facility] Comment on above: Order Comment: Order Added by Discern Expert. Performed By: #### 2 407961, 79316197, 5822863, 40059374, 33879880, 1716866 ####[facility] [address] [place] [address] Basophils/Leukocytes Auto (Bld) [Pure # fraction] 0.1 E9/L Normal 0.0-0.2 [facility] Comment on above: Order Comment: Order Added by Perry Expert. Performed By: #### 2 400828, 88772767, 7315433, 91086201, 01825762, 2822258 ####[facility] [address] [place] [address] Eosinophils/100 WBC (Bld) 4.0 % Normal 0.0-8.0 [facility] Comment on above: Order Comment: Order Added by Discern Expert. Performed By: #### 2 872535, 83764577, 5377506, 51449619, 07986807, 3500764 ####[facility] [address] [place] [address] Eosinophils/Leukocyt es Auto (Bld) [Pure # fraction] 0.3 E9/L Normal 0.0-0.5 [facility] Comment on above: Order Comment: Order Added by Perry Expert. Performed By: #### 2 477957, 75426059, 9437982, 60605628, 07813702, 1154803 ####[address] [address] Lymphocytes/100 WBC (Bld) 21.7 % Normal 14.0-50.0 [facility] Comment on above: Order Comment: Order Added by Perry Expert. Performed By: #### 2 652870, 68854513, 2565429, 52477340, 66266343, 3707342 ####[address] [address] Lymphocytes/Leukocyt es Auto (Bld) [Pure # fraction] 1.5 E9/L Normal 1.0-4.0 [facility] Comment on above: Order Comment: Order Added by Perry Expert. Performed By: #### 2 306465, 08464781, 9714500, 29396751, 05715698, 1472064 ####[facility] [address] [place] [address] Monocytes/100 WBC (Bld) 7.2 % Normal 4.0-14.0 [facility] Comment on above: Order Comment: Order Added by Discern Expert. Performed By: #### 2 222502, 06206457, 0096700, 30169423, 00567312, 1674518 ####[facility] [address] [place] [address] Monocytes/Leukocytes Auto (Bld) [Pure # fraction] 0.5 E9/L Normal 0.2-1.0 [facility] Comment on above: Order Comment: Order Added by Discern Expert. Performed By: #### 2 750752, 91960561, 0598911, 02776611, 92764313, 5809803 ####[place] [address] [place] [address] Neutrophils/100 WBC (Bld) 66.3 % Normal 36.0-75.0 [facility] Comment on above: Order Comment: Order Added by Perry Expert. Performed By: #### 2 533738, 59996092, 0290682, 46844806, 65195376, 8814263 ####[place] [address] [place] [address] Neutrophils/Leukocyt es Auto (Bld) [Pure # fraction] 4.7 E9/L Normal 2.0-7.5 [facility] Comment on above: Order Comment: Order Added by Discern Expert. Performed By: #### 2 646815, 55059862, 6279332, 78323288, 17447494, 2077313 ####[facility] [address] [place] [address] BMPon 01-19-2020 Creatinine [Mass/Vol] 1.3 mg/dL Normal 0.5-1.3 [facility] Comment on above: Performed By: #### 2 962480, 95805083, 3615046, 97463186, 57826255, 5984383 ####[facility] [address] [place] [address] Urea nitrogen [Mass/Vol] 21 mg/dL Normal 5-21 [facility] Comment on above: Performed By: #### 2 320202, 51562964, 4036988, 49861867, 92303147, 4789582 ####[facility] [address] [place] [address] Urea nitrogen/Creatinine [Mass ratio] 16 No Units Normal 10-20 [facility] Comment on above: Performed By: #### 2 946197, 69372021, 1079166, 53270544, 03515879, 5937330 ####[facility] [address] [place] [address] Anion gap [Moles/Vol] 13 mmol/L Normal 6-16 [facility] Comment on above: Performed By: #### 2 525970, 20789038, 5900742, 58936908, 52148878, 6328664 ####[facility] [address] [place] [address] Calcium [Mass/Vol] 7.2 mg/dL Low 8.9-11.1 [facility] Comment on above: Performed By: #### 2 678511, 21676106, 8945512, 85525716, 41666824, 2749816 ####[facility] [address] [place] [address] Chloride [Moles/Vol] 107 mmol/L Normal 101-111 [facility] Comment on above: Performed By: #### 2 273366, 43231147, 1777919, 52728639, 34104402, 3270273 ####[facility] [address] [place] [address] CO2 [Moles/Vol] 23 mmol/L Normal 21-31 [facility] Comment on above: Performed By: #### 2 593283, 65940517, 1057071, 67041583, 83914865, 6111049 ####[facility] [address] [facility] [address] Glucose [Mass/Vol] 114 mg/dL Normal 55-199 [facility] Comment on above: Result Comment: If t his glucose result represents a fasting glucose, interpretation should refer to the following reference range: 55-99 mg/dL Performed By: #### 2 579050, 52145904, 4175009, 43244067, 12617551, 4767828 ####[facility] [address] [place] [address] Potassium [Moles/Vol] 3.3 mmol/L Low 3.5-5.3 [facility] Comment on above: Performed By: #### 2 549386, 75342467, 7313134, 92831005, 40910767, 5110682 ####[facility] [address] [place] [address] Sodium [Moles/Vol] 140 mmol/L Normal 135-145 [facility] Comment on above: Performed By: #### 2 614173, 11755476, 6474592, 61933423, 17691452, 7205356 ####[facility] [address] [place] 2660[address] CBC w/ Auto Diffon 0 Erythrocyte distribution width (RBC) [Ratio] 14.6 % High 10.9-14.2 [facility] Comment on above: Performed By: #### 2 055737, 08839119, 8211656, 13725650, 52889562, 2118408 #### [facility] [address] [place] [address] Hematocrit (Bld) [Volume fraction] 38.2 % Normal 37.7-49.0 [facility] Comment on above: Performed By: #### 2 202871, 39086715, 0929415, 13305132, 45016789, 8314575 #### [facility] [address] [place] [address] Hemoglobin (Bld) [Mass/Vol] 12.7 g/dL Low 13.5-17.5 [facility] Comment on above: Performed By: #### 2 579103, 62527618, 9542439, 03719997, 11937285, 1695652 #### [facility] [address] [place] [address] MCH (RBC) [Entitic mass] 27.2 pg Normal 27.0-34.0 [facility] Comment on above: Performed By: #### 2 738162, 16129742, 9651074, 40763326, 46778866, 5660850 #### [facility] [address] [place] [address] MCHC (RBC) [Mass/Vol] 33.2 g/dL Normal 31.4-36.0 [facility] Comment on above: Performed By: #### 2 450336, 54384262, 1561297, 44949581, 85698751, 7469611 #### [facility] [address] [place] [address] MCV (RBC) [Entitic vol] 82.1 fL Normal 80.0-100.0 [facility] Comment on above: Performed By: #### 2 997807, 98720766, 0378979, 42681091, 31018332, 1129048 #### [facility] [address] [place] [address] Platelet mean volume (Bld) [Entitic vol] 8.2 fL Normal 6.4-10.8 [facility] Comment on above: Performed By: #### 2 182028, 81788445, 7631539, 01078123, 54400221, 1412782 #### [facility] [address] [place] [address] Platelets (Bld) [#/Vol] 226.0 E9/L Normal 150.0-500. 0 [facility] Comment on above: Performed By: #### 2 378867, 38993689, 2549861, 54080281, 24033841, 6770420 #### [facility] [address] [place] [address] RBC (Bld) [#/Vol] 4.7 E12/L Normal 4.3-5.9 [facility] Comment on above: Performed By: #### 2 398033, 48037919, 7517938, 92460965, 06116358, 5642337 #### [facility] [address] [place] [address] WBC corrected for nucl RBC Auto (Bld) [#/Vol] 7.1 E9/L Normal 4.0-11.0 [facility] Comment on above: Performed By: #### 2 858160, 86099396, 9413949, 02946686, 07499992, 9430666 #### [facility] [address] [place] [address] CTA Headon 01-19-2020 CTA Head Exam Date/Time: [...] 370 Contrast amount in ml's: 70 Normal [facility] CTA Neckon 01-19-2020 CTA Neck Exam Date/Time: [...] 370 Contrast amount in ml's: 70 Normal [facility] Capillary Glucose POCon 12-22 Glucose [Mass/Vol] 111 mg/dL High 55-99 [facility] Comment on above: Result Comment: Erika heart RN/ Performed By: #### 2 [id number] ####[facility] [address] [place] [address] Consent for Treatmenton 12-22 Consent for Treatment [id number] Normal [facility] ED Clinical Summaryon 2019 ED Clinical Summary (Inserted Image. Daya ble to display) [place] [id number] ED Clinical Summary Person Information Name: YOLI ANTUNEZ JR [place] Age: 64 Years : 1955 Sex: Male Language: Eritrean PCP: RADHA BURRIS MD Marital Status: Visit [...] 01/19/2020 17:29:31 01/19/2020 17:29:31 01/19/2020 17:29:31 ADDRESS: [address] [place] [id number] PHYS DOC NOTES: MEDICAL INFORMATION: Prescriptions Given: [...] Follow up: With: Address: When: Earle Jon [address] [place] [address] [facility] (1) In 3 days 01/22/2020 With: Address: When: Follow-up with your neurologist as directed at [facility] In 3 days 01/22/2020 DIAGNOSIS: Abnormal cardiac enzyme level; Aphasia; Chest pain Normal [facility] ED Note-Physicianon 01-19-20 ED Note-Physician Basic Information [...] . He was undergoing a procedure at [facility] for ablation for his atrial fibrillation. Patient [...] He was called by the neurologist at [facility] 1 hour prior to arrival [...] she cannot recall. He has been taking rvpo-rpk-fnfjsrc medications for his headache as well and [...] he just underwent full work-up at [facility] including negative MRI. He is not exactly sure why the neurologist sent the patient here today for CT angiogram but it is negative. He did request copies of the imaging and I did provide him with this on disc and we sent them electronically to [facility] as well. He is discharged home with instructions to return to the ER for symptoms should change worsen or recur or if he changes his mind to be admitted for observation. Assessment/Plan Abnormal cardiac enzyme level (R74.8: Abnormal levels of other serum enzymes) Aphasia (R47.01: Aphasia) Chest pain (R07.9: Chest pain, unspecified) Orders: Automated Diff Basic Metabolic Panel CBC w/ Auto Diff [place] Stroke Scale Communication Order Physician to Nursing [...] Jon In 3 days 01/22/2020 EDT [address] [place] [address]- Business (1) Additional Instructions: (more content not included)... Normal [facility] Comment on above: Result Comment: Elec tronically [...] Document Reviewed: 11/11/2008 ExitCare? Patient Information ?2015 CIHI. This information is not intended to replace [...] of t (more content not included)... Normal [facility] ED Patient Summaryon 020 ED Patient Summary (Inserted Image. Daya ble to display) [address] [address] Patient Discharge Instructions Person Information Name: YOLI ANTUNEZ JR Age: 64 Years Arrival Date: 01/19/2020 15:06:59 Discharge Diagnosis: Abnormal cardiac enzyme level; Aphasia; Chest pain Primary Care Physician: RADHA BURRIS MD Provider Information Primary Provider: Bhavesh Lwo DO Advanced Cascara Bark Cutter:None The exam and treatment you received in the Emergency Department were for an urgent problem and are not intended as complete care. It is important that you follow up with a doctor, nurse practitioner, or physician?s educational assistant for ongoing care. If your symptoms [...] Follow-up Instructions: With: Address: When: Earle Jon [address] [place] [id number] Business (1) In 3 days 01/22/2020 With: Address: When: Follow-up with your neurologist as directed at [facility] In 3 days 01/22/2020 In the event that this physician does not participate in your insurance network, please consult with your insurance company to find a nearby participating provider. Patient Education Materials: Chest Pain (Nonspecific); Aphasia A MESSAGE TO ALL PATIENTS REGARDING OPIOIDS PRESCRIPTION OPIOIDS: WHAT YOU NEED TO KNOW Prescription opioids can be used to help relieve mwssbwyf-ya-phvwns pain and are often prescribed following a [...] with addiction (more content not included)... Normal [facility] PT & PTTon 01-19-2020 aPTT Coag (PPP) [Time] 36.5 second(s) Normal 25.1-36.5 [facility] Comment on above: Result Comment: Hepa rin therapeutic range (represented by Anti-Factor Xa activity of 0.2 - 0.4 U/mL) corresponds to PTT of 56.6 - 109.0 sec. Performed By: #### 2 [id number], [id number], [id number], [id number], [id number] ####[facility] [address] [place] [address] INR Coag (PPP) [Relative time] 1.1 {INR} Invalid Interpretation Code [facility] Comment on above: Result Comment: INR results are specifically intended to assess patients stabilized on long-term Anticoagulation therapy suggested INR?s ?Less Intensive Anticoagulation? 2.0 ? 3.0 Conventional Range 3.0 ? 4.5 Performed By: #### 2 [id number], [id number], [id number], [id number], [id number], [id number] ####[facility] [address] [place] [address] PT Coag (PPP) [Time] 13.1 second(s) High 10.2-12.9 [facility] Comment on above: Performed By: #### 2 [id number], [id number], [id number], [id number], [id number], [id number] ####[facility] [address] [place] [address] Troponin 0 Hr.on 01-19-2020 Troponin I.cardiac [Mass/Vol] 126.30 pg/mL Abnormal 15.90-38.4 0 [facility] Comment on above: Result Comment: Crit ical [...] Sensitivity Troponin I Instructions For Use, [employer], November 2017) Performed By: #### 2 [id number], [id number], [id number], [id number], [id number], [id number] ####[facility] [address] [place] [address] XR Chest Single Viewon 01-18 XR Chest [...] evident. FINAL REPORT Dictated: 01/19/2020 4:37 pm Margo Torres M.D. Signed (Electronic Signature): 01/19/2020 4:37 pm Signed by: Margo Torres M.D. Transcribed by: MALINI Technologist: BRYANT Normal [facility] eGFRon 01-19-2020 GFR/1.73 sq M.predicted among blacks MDRD (S/P/Bld) [Vol rate/Area] mL/min/{1.73_m2} Normal >=59 [facility] Comment on above: Order Comment: Order added by Discern Expert. Result Comment: eGFR is race adjusted. AA=. Performed By: #### 2 [id number], [id number], [id number], [id number], [id number], [id number] ####[facility] [address] [place] [address] GFR/1.73 sq M.predicted among non-blacks MDRD (S/P/Bld) [Vol rate/Area] 55 mL/min/1.73 m2 Low >=59 [facility] Comment on above: Order Comment: Order added by Discern Expert. Result Comment: Medical Art Therapist nikki kidney disease could be indicated at eGFR's of less than 60 mL/min/1.73m2. Kidney failure is indicated at less than 15 mL/min/1.73m2. Performed By: #### 2 [id number], [id number], [id number], [id number], [id number], [id number] ####[facility] [address] [place] [address] Creatinineon 04-28-2018 Creatinine mass conc 1.47 mg/dL High 0.50-1.30 [facility] Comment on above: Performed By: #### 1 [id number] ####[facility] [address] [place] [address] GFR/1.73 sq M.predicted MDRD vol rate/area 48 mL/min/{1.73_m2} Normal [facility] Comment on above: Result Comment: Inte rpretation for Chronic Kidney Disease:Stages 1&2 >60 Healthy or potential kidney damage.Mild decrease of GFR.Stage 3 30-59 Moderate decrease of GFR.Stage 4 15-29 Severe decrease of GFR.Stage 5 <15 Kidney failure or on dialysis. Performed By: #### 1 [id number] ####[facility] [address] [place] [address] Electrolyte Panelon 04-28-19 19 Anion gap 3 molar conc 10 mmol/L Normal 10-20 [facility] Comment on above: Performed By: #### 1 [id number] ####[facility] [address] [place] [address] Chloride molar conc 110 mmol/L High 98-107 [facility] Comment on above: Performed By: #### 1 [id number] ####[facility] [address] [place] [address] HCO3 molar conc (Bld) 25 mmol/L Normal 21-32 [facility] Comment on above: Performed By: #### 1 [id number] ####[facility] [address] [place] [address] Potassium molar conc 4.2 mmol/L Normal 3.5-5.1 [facility] Comment on above: Performed By: #### 1 [id number] ####[facility] [address] [place] [address] Sodium molar conc 141 mmol/L Normal 136-145 [facility] Comment on above: Performed By: #### 1 [id number] ####[facility] [address] [place] [address] Urea Nitrogenon 04-28-2018 Urea nitrogen mass conc 32 mg/dL High 6-23 [facility] Comment on above: Performed By: #### 1 [id number] ####[facility] [address] [place] [address] Vital Signs Date Time Vital Sign Value Performing Clinician Facility 08-21-2024 14:10-0400 Body mass index (BMI) [Ratio] 28.96 kg/m2 Radha Burris MD Work Phone: [facility] 08-21-2024 14:10-040 Body temperature 99.1 [degF] Radha Burris MD Work Phone: [facility] 08-21-2024 14:10-040 Body weight 113.67 kg Radha Burris MD Work Phone: [facility] 08-21-2024 14:10-040 Diastolic blood pressure 84 mm[Hg] Radha Burris MD Work Phone: [facility] 08-21-2024 14:10-0400 Heart rate 76 /min Radha Burris MD Work Phone: [facility] 08-21-2024 14:10-0400 SaO2% (BldA) [Mass fraction] 96 % Radha Burris MD Work Phone: [facility] 08-21-2024 14:10-0400 Systolic blood pressure 132 mm[Hg] Radha Burris MD Work Phone: [facility] 08-19-2024 08:53-0400 Body height 198.1 cm Christopher Silvana DO Work Phone: [facility] 08-19-2024 08:53-0400 Body mass index (BMI) [Ratio] 28.08 kg/m2 Christopher Silvana DO Work Phone: [facility] 08-19-2024 08:53-0400 Body weight 110.22 kg Christopher Silvana DO Work Phone: [facility] 08-19-2024 08:53-0400 Diastolic blood pressure 90 mm[Hg] Christopher Silvana DO Work Phone: [facility] 08-19-2024 08:53-0400 Heart rate 80 /min Christopher Silvana DO Work Phone: [facility] 08-19-2024 08:53-0400 Systolic blood pressure 138 mm[Hg] Christopher Silvana DO Work Phone: [facility] 08-10-2024 09:48-0400 Body height 198.1 cm Latoya Redding MD Work Phone: [facility] 08-10-2024 09:48-0400 Body mass index (BMI) [Ratio] 29.7 kg/m2 Latoya Redding MD Work Phone: [facility] 08-10-2024 09:48-0400 Body weight 116.57 kg Latoya Redding MD Work Phone: [facility] 08-10-2024 09:48-0400 Diastolic blood pressure 68 mm[Hg] Latoya Redding MD Work Phone: [facility] 08-10-2024 09:48-0400 Heart rate 78 /min Latoya Redding MD Work Phone: [facility] 08-10-2024 09:48-0400 Respiratory rate 18 /min Latoya Redding MD Work Phone: [facility] 08-10-2024 09:48-0400 SaO2% (BldA) [Mass fraction] 96 % Latoya Redding MD Work Phone: [facility] 08-10-2024 09:48-0400 Systolic blood pressure 100 mm[Hg] Latoya Redding MD Work Phone: [facility] 07-06-2024 10:01-0400 Body height 198.1 cm Latoya Redding MD Work Phone: [facility] 07-06-2024 10:01-0400 Body mass index (BMI) [Ratio] 29.35 kg/m2 Latoya Redding MD Work Phone: [facility] 07-06-2024 10:01-0400 Body weight 115.21 kg Latoya Redding MD Work Phone: [facility] 07-06-2024 10:01-0400 Diastolic blood pressure 80 mm[Hg] Latoya Redding MD Work Phone: [facility] 07-06-2024 10:01-0400 Heart rate 77 /min Latoya Reddnig MD Work Phone: [facility] 07-06-2024 10:01-0400 Respiratory rate 16 /min Latoya Redding MD Work Phone: [facility] 07-06-2024 10:01-0400 SaO2% (BldA) [Mass fraction] 98 % Latoya Redding MD Work Phone: [facility] 07-06-2024 10:01-0400 Systolic blood pressure 114 mm[Hg] Latoya Redding MD Work Phone: [facility] 06-22-2024 13:10-0500 Body mass index (BMI) [Ratio] 29.19 kg/m2 Christopher Silvana DO Work Phone: [facility] 06-22-2024 13:10-0500 Body weight 114.58 kg Christopher Silvana DO Work Phone: [facility] 06-22-2024 13:10-0500 Diastolic blood pressure 90 mm[Hg] Christopher Silvana DO Work Phone: [facility] 06-22-2024 13:10-0500 Heart rate 91 /min Christopher Silvana DO Work Phone: [facility] 06-22-2024 13:10-0500 SaO2% (BldA) [Mass fraction] 98 % Christopher Silvana DO Work Phone: [facility] 06-22-2024 13:10-0500 Systolic blood pressure 128 mm[Hg] Christopher Silvana DO Work Phone: [facility] 06-09-2024 09:45-0500 Body mass index (BMI) [Ratio] 29.54 kg/m2 Eleonora Leo ASSISTANT HEAD CASHIER Work Phone: [facility] 06-09-2024 09:45-0500 Body temperature 95.9 [degF] Eleonora Leo ASSISTANT HEAD CASHIER Work Phone: [facility] 06-09-2024 09:45-0500 Body weight 115.94 kg Eleonora Leo ASSISTANT HEAD CASHIER Work Phone: [facility] 06-09-2024 09:45-0500 Diastolic blood pressure 80 mm[Hg] Eleonora Leo ASSISTANT HEAD CASHIER Work Phone: [facility] 06-09-2024 09:45-0500 Heart rate 67 /min Eleonora Leo ASSISTANT HEAD CASHIER Work Phone: [facility] 06-09-2024 09:45-0500 SaO2% (BldA) [Mass fraction] 99 % Eleonora Simonradha ASSISTANT HEAD CASHIER Work Phone: [facility] 06-09-2024 09:45-0500 Systolic blood pressure 116 mm[Hg] Eleonora Nerireid ASSISTANT HEAD CASHIER Work Phone: [facility] 02-06-2024 08:51-0400 Body height 198.1 cm Radha Burris MD Work Phone: [facility] 02-06-2024 08:51-0400 Body mass index (BMI) [Ratio] 27.43 kg/m2 Radha Burris MD Work Phone: [facility] 02-06-2024 08:51-0400 Body weight 107.68 kg Radha Burris MD Work Phone: [facility] 02-06-2024 08:51-0400 Diastolic blood pressure 70 mm[Hg] Radha Burris MD Work Phone: [facility] 02-06-2024 08:51-0400 Heart rate 74 /min Radha Burris MD Work Phone: [facility] 02-06-2024 08:51-0400 SaO2% (BldA) [Mass fraction] 97 % Radha Burris MD Work Phone: [facility] 02-06-2024 08:51-0400 Systolic blood pressure 110 mm[Hg] Radha Burris MD Work Phone: [facility] 01-20-2024 16:04-0400 Body mass index (BMI) [Ratio] 27.04 kg/m2 Sofia Vigil ASSISTANT HEAD CASHIER Work Phone: [facility] 01-20-2024 16:04-0400 Body temperature 97.3 [degF] Sofia Vigil ASSISTANT HEAD CASHIER Work Phone: [facility] 01-20-2024 16:04-0400 Body weight 106.14 kg Sofia Vigil ASSISTANT HEAD CASHIER Work Phone: [facility] 01-20-2024 16:04-0400 Diastolic blood pressure 60 mm[Hg] Sofia Vigil ASSISTANT HEAD CASHIER Work Phone: [facility] 01-20-2024 16:04-0400 Systolic blood pressure 108 mm[Hg] Sofia Vigil ASSISTANT HEAD CASHIER Work Phone: [facility] 01-13-2024 13:24-0400 Body height 198.1 cm Shivani Adams ASSISTANT HEAD CASHIER Work Phone: [facility] 01-13-2024 13:24-0400 Body mass index (BMI) [Ratio] 27.53 kg/m2 Shivani Adams ASSISTANT HEAD CASHIER Work Phone: [facility] 01-13-2024 13:24-0400 Body weight 108.05 kg Shivani Adams ASSISTANT HEAD CASHIER Work Phone: [facility] 01-13-2024 13:24-0400 Diastolic blood pressure 76 mm[Hg] Shivani Adams ASSISTANT HEAD CASHIER Work Phone: [facility] 01-13-2024 13:24-0400 Heart rate 84 /min Shivani Adams ASSISTANT HEAD CASHIER Work Phone: [facility] 01-13-2024 13:24-0400 SaO2% (BldA) [Mass fraction] 96 % Shivani Adams ASSISTANT HEAD CASHIER Work Phone: [facility] 01-13-2024 13:24-0400 Systolic blood pressure 124 mm[Hg] Shivani Adams ASSISTANT HEAD CASHIER Work Phone: [facility] 12-24-2023 09:31-0400 Body height 198.1 cm Radha Burris MD Work Phone: [facility] 12-24-2023 09:31-0400 Body mass index (BMI) [Ratio] 27.62 kg/m2 Radha Burris MD Work Phone: [facility] 12-24-2023 09:31-0400 Body weight 108.41 kg Radha Burris MD Work Phone: [facility] 12-24-2023 09:31-0400 Diastolic blood pressure 88 mm[Hg] Radha Burris MD Work Phone: [facility] 12-24-2023 09:31-0400 Heart rate 79 /min Radha Burris MD Work Phone: [facility] 12-24-2023 09:31-0400 SaO2% (BldA) [Mass fraction] 97 % Radha Burris MD Work Phone: [facility] 12-24-2023 09:31-0400 Systolic blood pressure 130 mm[Hg] Radha Burris MD Work Phone: [facility] 04-16-2023 11:58-0500 Diastolic blood pressure 77 mm[Hg] MD Radha Burris Work Phone: [facility] 04-16-2023 11:58-0500 Heart rate 60 /min MD Radha Burris Work Phone: [facility] 04-16-2023 11:58-0500 Respiratory rate 16 /min MD Radha Burris Work Phone: [facility] 04-16-2023 11:58-0500 SaO2% (BldA) [Mass fraction] 100 % MD Radha Burris Work Phone: [facility] 04-16-2023 11:58-0500 Systolic blood pressure 122 mm[Hg] MD Radha Burris Work Phone: [facility] 04-16-2023 09:35-0500 Body height 198.12 cm MD Radha Burris Work Phone: [facility] 04-16-2023 09:35-0500 Body weight 111.13 kg MD Radha Burris Work Phone: [facility] 03-20-2023 14:00-0500 Body height Imad Asaad Other [facility] [employer] Other 03-20-2023 14:00-0500 Body height 195.58 cm MD Radha Burris Work Phone: [facility] 03-20-2023 14:00-0500 Body mass index (BMI) [Ratio] 30.34 kg/m2 Imad Asaad Other [facility] [employer] Other 03-20-2023 14:00-0500 Body weight 116.08 kg Imad Asaad Other [facility] [employer] Other 03-20-2023 14:00-0500 Body weight 116.07 kg MD Radha Burris Work Phone: [facility] 03-20-2023 14:00-0500 Diastolic blood pressure 70 mm[Hg] Imad Asaad Other [facility] 03-20-2023 14:00-0500 Systolic blood pressure 120 mm[Hg] Imad Asaad Other [facility] 01-31-2023 14:51-0400 Body mass index (BMI) [Ratio] 28.89 kg/m2 Yossi Chen MD Work Phone: [facility] 01-31-2023 14:51-0400 Body weight 113.4 kg Yossi Chen MD Work Phone: [facility] 12-31-2022 15:12-0400 Body height 198.1 cm Sarbjit Richardson DIRECTOR PAYER.RESTAURANT GENERAL MANAGER Work Phone: [facility] 12-31-2022 15:12-0400 Body weight 114.76 kg Sarbjit Richardson DIRECTOR PAYER.RESTAURANT GENERAL MANAGER Work Phone: [facility] 12-31-2022 15:12-0400 Diastolic blood pressure 77 mm[Hg] Sarbjit Richardson DIRECTOR PAYER.RESTAURANT GENERAL MANAGER Work Phone: [facility] 12-31-2022 15:12-0400 Heart rate 69 /min Sarbjit Richardson DIRECTOR PAYER.RESTAURANT GENERAL MANAGER Work Phone: [facility] 12-31-2022 15:12-0400 Systolic blood pressure 123 mm[Hg] Sarbjit Richardson DIRECTOR PAYER.RESTAURANT GENERAL MANAGER Work Phone: [facility] 11-29-2022 13:43-0400 Body height 198.12 cm Radha Burris Work Phone: [facility] DO Work Phone: 11-29-2022 13:43-0400 Body mass index (BMI) [Ratio] 29.24 kg/m2 Radha Burris Work Phone: [facility] DO Work Phone: 11-29-2022 13:43-0400 Body surface area Derived from formula 2.49 m2 Radha Burris Work Phone: [facility] DO Work Phone: 11-29-2022 13:43-0400 Body weight 114.76 kg Radha Burris Work Phone: [facility] DO Work Phone: 11-12-2022 14:23-0400 Body height 198.12 cm Radha Burris Work Phone: [facility] DO Work Phone: 11-12-2022 14:23-0400 Body mass index (BMI) [Ratio] 29.82 kg/m2 Radha Burris Work Phone: [facility] DO Work Phone: 11-12-2022 14:23-0400 Body surface area Derived from formula 2.52 m2 Radha Burris Work Phone: [facility] DO Work Phone: 11-12-2022 14:23-0400 Body weight 117.03 kg Radha Burris Work Phone: [facility] DO Work Phone: 11-12-2022 14:23-0400 Diastolic blood pressure 65 mm[Hg] Radha Burris Work Phone: [facility] DO Work Phone: 11-12-2022 14:23-0400 Heart rate 77 /min Radha Burris Work Phone: [facility] DO Work Phone: 11-12-2022 14:23-0400 Systolic blood pressure 104 mm[Hg] Radha Burris Work Phone: [facility] DO Work Phone: 10-18-2022 14:32-0400 Diastolic blood pressure 61 mm[Hg] Infusion 3 Work Phone: [facility] 10-18-2022 14:32-0400 Heart rate 68 /min Infusion 3 Work Phone: [facility] 10-18-2022 14:32-0400 Respiratory rate 14 /min Infusion 3 Work Phone: [facility] 10-18-2022 14:32-0400 Systolic blood pressure 111 mm[Hg] Infusion 3 Work Phone: [facility] 08-30-2022 07:01-0400 Body height 184.4 cm Beth Diego MD Work Phone: [facility] 08-30-2022 07:01-0400 Body mass index (BMI) [Ratio] 33.41 kg/m2 Beth Diego MD Work Phone: [facility] 08-30-2022 07:010400 Body weight 113.6 kg Beth Diego MD Work Phone: [facility] 08-17-2022 10:33-0400 Body height 198.12 cm Radha Burris Work Phone: VB-Bjiqdxxsijinla-Pe rma [address] Work Phone: 08-17-2022 10:33-0400 Body mass index (BMI) [Ratio] 29.99 kg/m2 Radha Burris Work Phone: JS-Vxjkumgbpgmtqb-Rz rma [address] Work Phone: 08-17-2022 10:33-0400 Body surface area Derived from formula 2.52 m2 Radha Burris Work Phone: SY-Huyongszwplvpg-Bk rma [address] Work Phone: 08-17-2022 10:33-0400 Body temperature 97.8 [degF] Radha Burris Work Phone: GH-Ibtwoiavsnedwk-Qu rma [address] Work Phone: 08-17-2022 10:33-0400 Body weight 117.71 kg Radha Burris Work Phone: AI-Mxelxfmjceuwhk-Fb rma [address] Work Phone: 08-17-2022 10:33-0400 Diastolic blood pressure 74 mm[Hg] Radha Burris Work Phone: BR-Ywoezbuesnayam-Lu rma [address] Work Phone: 08-17-2022 10:33-0400 Heart rate 82 /min Radha Burris Work Phone: KK-Duihlbqmuemzdx-Mt rma [address] Work Phone: 08-17-2022 10:33-0400 Respiratory rate 16 /min Radha Burris Work Phone: KY-Ayeqtdjbvelbwx-Uh rma [address] Work Phone: 08-17-2022 10:33-0400 SaO2% (BldA) [Mass fraction] 98 % Radha Burris Work Phone: DF-Qwszlndmqmqimr-Lu rma [address] Work Phone: 08-17-2022 10:33-0400 Systolic blood pressure 111 mm[Hg] Radha Burris Work Phone: SB-Kxzapdkzcixqir-Fw rma [address] Work Phone: 07-26-2022 14:25-0400 Diastolic blood pressure 77 mm[Hg] Infusion 3 Work Phone: [facility] 07-26-2022 14:25-0400 Heart rate 88 /min Infusion 3 Work Phone: [facility] 07-26-2022 14:25-0400 Systolic blood pressure 120 mm[Hg] Infusion 3 Work Phone: [facility] 07-17-2022 08:57-0400 Body height 198.12 cm Radha Burris Work Phone: [facility] Work Phone: 07-17-2022 08:57-0400 Body mass index (BMI) [Ratio] 29.08 kg/m2 Radha Burris Work Phone: [facility] 4100 Work Phone: 07-17-2022 08:57-0400 Body surface area Derived from formula 2.49 m2 Radha Burris Work Phone: [facility]incb[facility] 410 Work Phone: 07-17-2022 08:57-0400 Body temperature 98.8 [degF] Radha Collinshman Work Phone: [facility] 4[address] Work Phone: 07-17-2022 08:57-0400 Body weight 114.13 kg Radha Lovell Fatuma Work Phone: BJ[facility]gf[facility]hvhyul[facility] 4106 Work Phone: 01-05-2022 14:08-0400 Respiratory rate 16 /min John Saul MD Work Phone: [facility] 01-05-2022 09:00-0400 Diastolic blood pressure 80 mm[Hg] John Saul MD Work Phone: [facility] 01-05-2022 09:00-0400 Heart rate 63 /min John Saul MD Work Phone: [facility] 01-05-2022 09:00-0400 Systolic blood pressure 143 mm[Hg] John Saul MD Work Phone: [facility] 01-05-2022 07:45-0400 Body temperature 97.9 [degF] John Saul MD Work Phone: [facility] 01-05-2022 07:45-0400 SaO2% (BldA) [Mass fraction] 98 % John Saul MD Work Phone: [facility] 01-03-2022 06:00-0400 Body mass index (BMI) [Ratio] 29.47 kg/m2 John Saul MD Work Phone: [facility] 01-03-2022 06:00-0400 Body weight 115.67 kg John Saul MD Work Phone: [facility] 12-31-2021 23:43-0400 Body height 198.1 cm John Saul MD [facility] 10-02-2021 16:00-0400 Body height Thor Fox Other [facility] Other 10-02-2021 16:00-0400 Body mass index (BMI) [Ratio] 30.71 kg/m2 Thor Fox Other [facility] Other 10-02-2021 16:00-0400 Body weight 117.48 kg Thor Corbettky Other [facility] Other 10-02-2021 16:00-0400 Diastolic blood pressure 72 mm[Hg] Thor Corbettky Other [facility] Other 10-02-2021 16:00-0400 SaO2% (BldA) [Mass fraction] 97 % Thor Fox Other [facility] Other 10-02-2021 16:00-0400 Systolic blood pressure 118 mm[Hg] Thor Ruddy Other [facility] Other 08-30-2021 10:15-0400 Body height Lashawn Estrada Other [facility] Other 08-30-2021 10:15-0400 Body mass index (BMI) [Ratio] 30.76 kg/m2 Lashawn Estrada Other [facility] Other 08-30-2021 10:15-0400 Body weight 117.66 kg Lashawn Estrada Other [facility] Other 08-30-2021 10:15-0400 Diastolic blood pressure 64 mm[Hg] Lashawn Estrada Other [facility] Other 08-30-2021 10:15-0400 Respiratory rate 18 /min Lashawn Estrada Other [facility] Other 08-30-2021 10:15-0400 SaO2% (BldA) [Mass fraction] 96 % Lashawn Estrada Other [facility] Other 08-30-2021 10:15-0400 Systolic blood pressure 116 mm[Hg] Lashawn Estrada Other [facility] Other 08-03-2021 16:45-0400 Body height Thor Corbettky Other [facility] Other 08-03-2021 16:45-0400 Body mass index (BMI) [Ratio] 30.73 kg/m2 Thor Ruddy Other [facility] Other 08-03-2021 16:45-0400 Body weight 117.57 kg Thorshu Fox Other [facility] Other 08-03-2021 16:45-0400 Diastolic blood pressure 80 mm[Hg] Thorshu Fox Other [facility] Other 08-03-2021 16:45-0400 SaO2% (BldA) [Mass fraction] 98 % Thorshu Fox Other [facility] Other 08-03-2021 16:45-0400 Systolic blood pressure 122 mm[Hg] Thor Fox Other [facility] [employer] Other 03-11-2020 13:30-0500 Body Temperature 98.1 [degF] [facility] [place] [place] 03-11-2020 13:30-0500 BP Diastolic 75 mm[Hg] [address] [facility] [place] [facility] [place] 03-11-2020 13:30-0500 BP Systolic 126 mm[Hg] [address] [place] [facility] [place] 03-11-2020 13:30-0500 Pulse (Heart Rate) 69 /min [address] [facility] [place] [place] 03-11-2020 13:30-0500 Respiratory Rate 18 /min [facility] [place] [place] 03-11-2020 09:45-0500 Pulse Oximetry 99 % [address] [facility] [place] [facility] [place] 03-03-2019 13:16-0500 BMI (Body Mass Index) 28 kg/m2 Chris Luong MPQH-Ixaksqzga-Zzjwisk ld 201 Work Phone: 03-03-2019 13:16-0500 Body weight 109.88 kg Chris Luong JE-Yuwfdiabg-Epl ffie ld 201 Work Phone: 03-03-2019 13:16-0500 BP Diastolic 80 mm[Hg] Chris Luong EX-Kmhnvfcbw-Xuw ffie ld 201 Work Phone: Comment on above: Location: LUE; Position: Sitting 03-03-2019 13:16-0500 BP Systolic 118 mm[Hg] Chris Luong UE-Chwfrszhd-Yvg ffie ld 201 Work Phone: Comment on above: Location: LUE; Position: Sitting 03-03-2019 13:16-0500 BSA (Body Surface Area) 2.45 m2 Chris Luong NA-Qmrgrcgqb-Gnxqlgt ld 201 Work Phone: 03-03-2019 13:16-0500 Height 198.12 cm Chris Luong SC-Koaawfmoz-Pfb ffie ld 201 Work Phone: 03-03-2019 13:16-0500 Pulse (Heart Rate) 81 /min Chris Luong MP-Neurology- [address] [address] Work Phone: 03-03-2019 13:16-0500 Pulse Oximetry 96 % Chris Luong AU-Kwzmeixag-Fpp ffie ld 201 Work Phone: Comment on above: Source: RA Encounters Encounter Date Encounter Type Care Provider Facility Start: 08-31-2024 ambulatory [facility] Start: 08-21-2024 End: 08-21-2024 Office outpatient visit 25 minutes Radha Burris MD Work Phone: [facility] Comment on above: Dental infection (Pr imary Dx) Start: 08-21-2024 End: 08-21-2024 ambulatory RADHA BURRIS Not Available Start: 08-21-2024 End: 08-21-2024 Bamboo flowsheet Radha Burris MD Work Phone: [facility] Start: 08-21-2024 End: 08-21-2024 Bamboo flowsheet Radha Burris MD Work Phone: [facility] Start: 08-19-2024 End: 08-19-2024 Bamboo flowsheet Shashi Pina DO Work Phone: [facility] Start: 08-19-2024 End: 08-19-2024 Bamboo flowsheet Shashi Pina DO Work Phone: [facility] Start: 08-19-2024 End: 08-19-2024 Office outpatient visit 25 minutes Shashi Pina DO Work Phone: [facility] Comment on above: Cranial neuropathy ( Primary Dx); Weakness Start: 08-19-2024 End: 08-19-2024 ambulatory SHASHI PINA Not Available Start: 08-17-2024 ambulatory [facility] Start: 08-10-2024 End: 08-10-2024 Bamboo flowsheet Latoya Redding MD Work Phone: [facility] Start: 08-10-2024 End: 08-10-2024 Bamboo flowsheet Latoya Redding MD Work Phone: [facility] Start: 08-10-2024 End: 08-10-2024 Office outpatient visit 40 minutes Latoya Redding MD Work Phone: [facility] Comment on above: Low serum parathyroi d hormone (PTH) (Primary Dx); Hypocalcemia; Vitamin D deficiency; Postoperative hypothyroidism (CMS/HCC); Postsurgical hypoparathyroidism (CMS/HCC); Stage 3a chronic kidney disease (HCC) (CMS/HCC) Start: 08-10-2024 End: 08-10-2024 ambulatory LATOYA REDDING Not Available Start: 08-03-2024 End: 08-12-2024 Clinisync Result Encounter Generic External Data Provider [facility] External Department Unsolicited Start: 08-03-2024 End: 08-12-2024 Clinisync Result Encounter Generic External Data Provider [facility] External Department Unsolicited Start: 07-14-2024 End: 07-14-2024 ambulatory [facility] Start: 07-06-2024 End: 07-06-2024 Office outpatient new 45 minutes Latoya Redding MD Work Phone: [facility] ENDO[facility] Comment on above: Postsurgical hypopar athyroidism (CMS/HCC) (Primary Dx); Low serum parathyroid hormone (PTH); Hypocalcemia; Vitamin D deficiency; Postoperative hypothyroidism (CMS/HCC) Start: 07-06-2024 End: 07-06-2024 ambulatory LATOYA REDDING Not Available Start: 07-02-2024 End: 07-02-2024 Clinisync Result Encounter Generic External Data Provider [facility] External Department Unsolicited Start: 07-02-2024 End: 07-02-2024 Clinisync Result Encounter Generic External Data Provider [facility] External Department Unsolicited Start: 06-22-2024 End: 06-22-2024 Office outpatient new [facility] Work Phone: [facility] Comment on above: Weakness (Primary Dx ); Acquired ptosis of right eyelid; Cranial neuropathy Start: 06-22-2024 End: 06-22-2024 ambulatory SHASHI PINA Not Available Start: 06-10-2024 End: 06-10-2024 Orders Only Shivani Wilkersonshameka ASSISTANT HEAD CASHIER Work Phone: [facility] Comment on above: Acquired hypothyroid ism (CMS/HCC) Start: 06-09-2024 End: 06-09-2024 Bamboo flowsheet Eleonora Leo ASSISTANT HEAD CASHIER Work Phone: [facility] Start: 06-09-2024 End: 06-09-2024 Bamboo flowsheet Eleonora Leo ASSISTANT HEAD CASHIER Work Phone: [facility] Start: 06-09-2024 End: 06-09-2024 Patient encounter procedure Eleonora Leo ASSISTANT HEAD CASHIER Work Phone: [facility] Comment on above: Restless legs syndro me (Primary Dx); POTS (postural orthostatic tachycardia syndrome); Aneurysm of ascending aorta without rupture (CMS/HCC); Arteriosclerosis of coronary artery (CMS/HCC); Paroxysmal atrial fibrillation (CMS/HCC); Coronary artery disease involving [place] heart, unspecified vessel or lesion type, unspecified whether angina present (CMS/HCC); Essential hypertension (CMS/HCC); Presence of Watchman left atrial appendage closure device; Transient ischemic attack; Gastroesophageal reflux disease without esophagitis; Benign prostatic hyperplasia with urinary obstruction; Stage 3a chronic kidney disease (HCC) (CMS/HCC); Chronic gouty arthritis; Vitamin D deficiency; Chronic migraine without aura, with intractable migraine, so stated, with status migrainosus (CMS/HCC); Meniere's disease, unspecified laterality; Acquired ptosis of right eyelid; Acquired hypothyroidism (CMS/HCC); History of smoking; Bronchiectasis, uncomplicated (CMS/HCC); 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); ADA (obstructive sleep apnea); Medicare annual wellness visit, subsequent Start: 06-09-2024 End: 06-09-2024 ambulatory ELEONORA LEO Not Available Start: 06-04-2024 End: 06-04-2024 Clinisync Result Encounter Generic External Data Provider [facility] External Department Unsolicited Start: 06-04-2024 End: 06-04-2024 Clinisync Result Encounter Generic External Data Provider [facility] External Department Unsolicited Start: 05-27-2024 End: 05-28-2024 Telephone encounter Elo Cruz MA [facility] Start: 05-19-2024 End: 05-19-2024 Orders Only Radha Burris MD Work Phone: [facility] Comment on above: Ptosis of both eyeli ds (Primary Dx) Start: 05-18-2024 End: 05-19-2024 Refill Sofia Amita Vigil ASSISTANT HEAD CASHIER Work Phone: [facility] Comment on above: Acquired hypothyroid ism (CMS/HCC) Start: 04-28-[address] [facility] Start: 04-23-2024 End: 04-23-2024 Orders Only Radha Burris MD Work Phone: [facility] Comment on above: Restless leg (Primar y Dx) Start: 04-10-2024 Evaluation and manag ement of inpatient [facility] Start: 04-10-2024 Evaluation and manag ement of inpatient [facility] Start: 04-09-2024 Evaluation and manag ement of inpatient [facility] Start: 04-08-2024 Emergency department patient visit SYD MCGREGOR [facility] Start: 04-08-2024 Emergency department patient visit MARGO FELIZ [facility] Start: 04-08-2024 End: 04-10-2024 [facility] Start: 04-08-2024 End: 04-08-2024 ambulatory SHUKRI VILCHIS [facility] Start: 03-16-2024 End: 03-16-2024 Clinisync Result Encounter Generic External Data Provider [facility] External Department Unsolicited Start: 03-16-2024 End: 03-16-2024 Clinisync Result Encounter Generic External Data Provider [facility] External Department Unsolicited Start: 03-11-2024 End: 03-11-2024 ambulatory [facility] Start: 03-03-2024 End: 03-03-2024 Encounter identifier Donn Ceballos Work Phone: [facility] [place] Start: 03-03-2024 ambulatory Donn Ceballos [facility] Start: 02-26-2024 End: 02-26-2024 ambulatory [facility] Start: 02-10-2024 End: 02-10-2024 Telephone encounter Radha Burris MD Work Phone: [facility] Comment on above: Dermatitis (Primary Dx) Start: 02-06-2024 End: 02-06-2024 Bamboo flowsheet Radha Burris MD Work Phone: [facility] Start: 02-06-2024 End: 02-06-2024 Bamboo flowsheet Radha Burris MD Work Phone: [facility] Start: 02-06-2024 End: 02-06-2024 Transitional care manage srvc 7 day discharge Radha Burris MD Work Phone: [facility] Comment on above: Anxiety (Primary Dx) ; Dermatitis; Paroxysmal atrial fibrillation (CMS/HCC) Start: 02-06-2024 End: 02-06-2024 Refill Eleonora Leo NP Work Phone: [facility] Comment on above: Acquired hypothyroid ism (CMS/HCC) Arteriosclerosis of coronary artery (CMS/HCC) (Primary Dx); Atypical angina (CMS/HCC) Start: 02-04-2024 End: 02-04-2024 ambulatory [facility] Start: 01-29-2024 Evaluation and manag ement of inpatient [facility] Start: 01-29-2024 Evaluation and manag ement of inpatient [facility] Start: 01-28-2024 Evaluation and manag ement of inpatient EDDI [facility] Start: 01-28-2024 Evaluation and [facility]ment of [facility] Start: 01-27-2024 Evaluation and manag ement of inpatient GILBERT BAXTER [facility] Start: 01-27-2024 End: 01-30-2024 Evaluation and management of inpatient SHAIKH ALCIDES [facility] Start: 01-20-2024 End: 01-20-2024 Office outpatient visit 15 minutes Sofia Vigil ASSISTANT HEAD CASHIER Work Phone: [facility] Comment on above: Irritant contact armando matitis due to other agents (Primary Dx) Start: 01-20-2024 End: 01-20-2024 ambulatory SOFIA VIGIL Not Available Start: 01-13-2024 End: 01-13-2024 Bamboo flowsheet Shivani Adams ASSISTANT HEAD CASHIER Work Phone: [facility] Start: 01-13-2024 End: 01-13-2024 Bamboo flowsheet Shivani Adams ASSISTANT HEAD CASHIER Work Phone: [facility] Start: 01-13-2024 End: 01-13-2024 Office outpatient visit 15 minutes Shivani Adams ASSISTANT HEAD CASHIER Work Phone: [facility] Comment on above: Dermatitis (Primary Dx); Chronic kidney disease, stage 3a (HCC) (CMS/HCC); Atherosclerosis of aorta (CMS/HCC); Thoracic aortic ectasia (CMS/HCC) Start: 01-13-2024 End: 01-13-2024 ambulatory SHIVANI ADAMS Not Available Start: 01-06-2024 End: 01-06-2024 Encounter identifier Donn Ceballos Work Phone: [facility] [place] Start: 01-02-2024 End: 01-02-2024 Office outpatient visit 25 minutes Donn Ceballos Work Phone: [facility] Start: 12-25-2023 End: 12-25-2023 [facility] Start: 12-24-2023 End: 12-24-2023 Bamboo flowsheet Radha Burris MD Work Phone: [facility] Start: 12-24-2023 End: 12-24-2023 Felizo flowsheet Radha Burris MD Work Phone: [facility] Start: 12-24-2023 End: 12-24-2023 Office outpatient visit 15 minutes Radha Burris MD Work Phone: [facility] Comment on above: Diarrhea, unspecifie d type (Primary Dx); Autonomic dysfunction; Angina at rest (CMS/HCC) Start: 12-24-2023 End: 12-24-2023 ambulatory RADHA BURRIS Not Available Start: 12-07-2023 End: 12-07-2023 ambulatory ELEONORA LEO Not Available Start: 10-10-2023 End: 10-10-2023 ambulatory [facility] Start: 09-27-2023 ambulatory [facility] Start: 09-01-2023 Letter encounter Radha cantu MD Work Phone: [facility] Start: 06-10-2023 End: 06-10-2023 ambulatory Radha Burris Facility:[facility] Start: 06-10-2023 End: 06-10-2023 ambulatory MD Radha Burris Work Phone: [facility] Work Phone: Start: 06-10-2023 End: 06-10-2023 Patient encounter procedure MD Radha Burris Work Phone: [facility] [place] Work Phone: Start: 05-31-2023 Clinisync Result Encounter Gen omari External Data Provider [facility] External Department Unsolicited Start: 05-31-2023 Clinisync Result Encounter Gen omari External Data Provider [facility] External Department Unsolicited Start: 05-31-2023 End: 05-31-2023 ambulatory María Pearl APRN.RESTAURANT GENERAL MANAGER Work Phone: Neurology Comment on above: Orthostatic hypotens ion (Primary Dx); [place]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) Start: 05-31-2023 End: 05-31-2023 Telemedicine consultation with patient María Pearl APRN.RESTAURANT GENERAL MANAGER Work Phone: [facility] Start: 05-30-2023 End: 05-30-2023 ambulatory Imad Asaad Other [facility] Other Start: 05-30-2023 Telephone encounter Imad Asaad [facility] Start: 05-26-2023 Letter encounter Radha cantu MD Work Phone: [facility] Start: 05-20-2023 End: 05-20-2023 ambulatory Imad Asaad Other [facility] Other Start: 05-20-2023 Telephone encounter Imad Asaad [facility] Start: 04-26-2023 End: 04-26-2023 ambulatory Imad Asaad Other [facility] Other Start: 04-26-2023 Telephone encounter Imad Asaad [facility] Start: 04-24-2023 End: 04-24-2023 ambulatory Imad Asaad Other [facility] Other Start: 04-24-2023 Telephone encounter Imad Asaad [facility] Start: 04-16-2023 End: 04-16-2023 ambulatory Radha Burris Facility:[facility] Start: 04-16-2023 End: 04-16-2023 Admission to same day surgery center MD Radha Burris Work Phone: [facility] Work Phone: Start: 04-16-2023 End: 04-16-2023 ambulatory MD Radha Burris Work Phone: [facility] Work Phone: Start: 04-09-2023 End: 04-09-2023 ambulatory Imad Asaad Other [facility] Other Start: 04-09-2023 Telephone encounter Imad Asaad [facility] Start: 04-01-2023 End: 04-01-2023 ambulatory Imad Asaad Other [facility] Other Start: 04-01-2023 Telephone encounter Imad Asaad [facility] Start: 03-21-2023 End: 03-21-2023 Office outpatient visit 15 minutes Donn Ceballos Work Phone: [facility] Start: 03-20-2023 End: 03-20-2023 ambulatory Imad Asaad Other [facility] Other Start: 03-20-2023 Office outpatient ne w 45 minutes Imad Asaad [facility] Start: 03-20-2023 End: 03-20-2023 Patient encounter procedure MD Radha Burris Work Phone: [facility] Work Phone: Start: 02-25-2023 End: 02-25-2023 ambulatory RADHA BURRIS Facility:[facility] Start: 02-25-2023 End: 02-25-2023 ambulatory Skin Biopsy Work Phone: Neurology Start: 02-25-2023 End: 02-25-2023 Patient encounter procedure Skin Biopsy Work Phone: [facility] Start: 02-05-2023 Telephone encounter María Zhao on DIRECTOR PAYER.RESTAURANT GENERAL MANAGER Work Phone: Neurology Comment on above: Results (Gerri teran ) Start: 02-01-2023 End: 02-02-2023 ambulatory RADHA BURRIS [facility] Start: 02-01-2023 End: 02-01-2023 Subsequent hospital visit by physician Winifred Baker 2 [facility] Comment on above: Left lower quadrant abdominal pain Start: 02-01-2023 End: 02-01-2023 ambulatory [facility] Start: 01-31-2023 End: 02-01-2023 ambulatory [facility] Start: 01-31-2023 End: 01-31-2023 Office outpatient visit 25 minutes Yossi Chen MD Work Phone: [facility] Comment on above: Diarrhea, unspecifie d type (Primary Dx); Left lower quadrant abdominal pain Start: 01-28-2023 ambulatory María Pearl APRN.RESTAURANT GENERAL MANAGER Work Phone: Neurology Comment on above: Tilt Start: 01-28-2023 E-mail encounter fro m caregiver María Pearl APRN.RESTAURANT GENERAL MANAGER Work Phone: [facility] Start: 01-28-2023 Telephone encounter María ellis DIRECTOR PAYER.RESTAURANT GENERAL MANAGER Work Phone: Neurology Comment on above: Results ([facility] ) Start: 01-26-2023 ambulatory María Pearl APRN.RESTAURANT GENERAL MANAGER Work Phone: Neurology Comment on above: Test results Start: 01-24-2023 End: 01-24-2023 ambulatory RADHA BURRIS Facility:[facility] Start: 01-23-2023 End: 01-23-2023 ambulatory RADHA BURRIS Facility:[facility] Start: 12-31-2022 End: 12-31-2022 ambulatory RADHA BURRIS Facility:[facility] Start: 12-31-2022 End: 12-31-2022 Patient encounter procedure Sarbjit Richardson DIRECTOR PAYER.RESTAURANT GENERAL MANAGER Work Phone: Neurology Comment on above: Autonomic dysfunctio n (Primary Dx); Dizzy spells Start: 12-13-2022 Postop follow up vis it related to original px Radha Burris Work Phone: [facility] Work Phone: Start: 12-13-[address] Yossi Chambers ity:[id number] Start: 12-10-2022 Chart Update Radha xavier Work Phone: [facility] [facility] DO Work Phone: Start: 11-29-2022 Postop follow up vis it related to original px Radha Burris Work Phone: [facility] [facility] DO Work Phone: Start: 11-29-[address] Yossi Chambers ity:[id number] Start: 11-22-2022 End: 11-22-2022 Evaluation and management of inpatient Dr. Yossi Chen Facility:[id number] Start: 11-16-2022 Telephone encounter Sarbjit Puentes DIRECTOR PAYER.RESTAURANT GENERAL MANAGER Work Phone: Neurology Comment on above: Received Outside Med ical Records () Start: 11-12-[address] Yossi Chambers ity:[id number] Start: 10-29-2022 AUDIT Radha xavier Work Phone: [facility]-Rfonosmtakytyx-Tnzrs an Work Phone: Start: 10-26-[address] Arabella Butt Facility:[id number] Start: 10-19-2022 ambulatory Sarbjit gregg DIRECTOR PAYER.RESTAURANT GENERAL MANAGER Work Phone: Neurology Comment on above: Reaction Start: 10-18-2022 End: 10-18-2022 ambulatory Infusion Main Chair 3 Work Phone: Neurology Comment on above: Chronic migraine wit hout aura, with intractable migraine, so stated, with status migrainosus (Primary Dx) Start: 10-15-2022 End: 10-15-[address] 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 Arabella Butt Facility:[id number] Start: 10-10-2022 Encounter for preprocedural cardiovascular examination Dr. Arabella Butt [facility] Start: 10-09-2022 AUDIT Radha xavier Work Phone: [facility] Work Phone: Start: 10-08-2022 Rx Renewal Radha xavier Work Phone: WX-Zanlxvdlflgdgy-Zwenj in [facility] 4[address] Work Phone: Start: 09-25-2022 Office outpatient vi sit 25 minutes Radha Burris Work Phone: GK-Ukoiuwbahbucoi-Dulci an Work Phone: Start: 09-25-2022 JAYLON, Provider : Ruby Daily, Status: Pen, Time: 2:30 PM Radha Burris Work Phone: [facility] Work Phone: Start: 09-25-[address] Ruby Daily Facility:[facility] Start: 09-24-2022 Office outpatient vi sit 10 minutes Radha Burris Work Phone: [place] [address] Work Phone: Start: 09-24-[address] Ranjana Perrin Facility:[id number] Start: 09-13-2022 End: 09-13-[address] Ruby Daily Facility:[facility] Start: 09-04-2022 Office outpatient vi sit 40 minutes Radha Burris Work Phone: BK-Deksbauhiyglqk-Ongnu an Work Phone: Start: 09-04-[address] Ruby Daily Facility:[facility] Start: 08-30-2022 End: 08-30-[address] Ruby Daily Facility:[facility] Start: 08-30-2022 End: 08-30-2022 Subsequent hospital visit by physician Beth Diego MD Work Phone: [facility] Comment on above: Dysphagia, oropharyn [...] Obstructive sleep apnea (adult) (pediatric); 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, unspecified; USP (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 of antithrombotics/antiplatelets; USP (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 of aspirin; Personal history of transient ischemic attack (TIA), and cerebral infarction without residual deficits; Personal history of nicotine dependence; Allergy status to penicillin Start: 08-23-2022 AUDIT Radha xavier Work Phone: DU-Jvlftxurfskmny-Mfgou an Work Phone: Start: 08-20-[address] Radha Burris Facility:[facility] Start: 08-17-2022 Current tobacco non- user cad cap copd pv dm Radha Burris Work Phone: BX-Ipyxfbbcgtflpj-Oqxzu MAC1 302 Work Phone: Start: 08-17-[address] Arabella Butt Facility:[id number] Start: 08-13-[address] Radha Burris Facility:[id number] Start: 08-13-2022 Patient encounter procedure Radha Burris [facility] [address] [place] Work Phone: Start: 08-10-[address] Ruby Daily Facility:[id number] Start: 07-31-2022 Office outpatient vi sit 40 minutes Radha Burris Work Phone: JM-Csrfcrhervuwti-Xtoca an Work Phone: Start: 07-31-2022 Patient encounter procedure Radha Burris Work Phone: RF-Ziajfmkaunkhrt-Rttfk an Work Phone: Start: 07-31-2022 JAYLON, Provider : Ruby Daily, Status: Pen, Time: 12:30 PM Radha Burris Work Phone: [facility] [address] [place] Work Phone: Start: 07-31-[address] Ruby Daily Facility:[id number] Start: 07-30-[address] Radha Burris Facility:[id number] Start: 07-30-2022 Patient encounter procedure Radha Burris [facility]: [facility] [address] [place] Work Phone: Start: 07-29-2022 ambulatory Sarbjit gregg APRN.RESTAURANT GENERAL MANAGER Work Phone: Neurology Comment on above: After effects Start: 07-26-2022 End: 07-26-2022 ambulatory Infusion Main Chair 3 Work Phone: Neurology Comment on above: Chronic migraine wit hout aura, with intractable migraine, so stated, with status migrainosus (Primary Dx) Start: 07-21-2022 ambulatory Sarbjit gregg APRN.CNP Work Phone: Neurology Comment on above: What's next? Start: 07-18-[address] Ranjana Perrin Facility:[id number] Start: 07-17-2022 Office outpatient vi sit 25 minutes Radha Burris Work Phone: JO-Dbmbrcgvhfclgu-Cllhh an Voice Work Phone: Start: 07-17-2022 Patient encounter procedure Radha Burris Work Phone: AX-Nhpizpedspooem-Bemnb in [facility] 4100 Work Phone: Start: 07-17-[address] Ranjana Perrin Facility:[id number] Start: 07-11-2022 ambulatory Sarbjit gregg APRN.[employer]GER Work Phone: Neurology Comment on above: Test results Start: 06-04-2022 End: 06-05-[address] AISHWARYA SWAIN Facility:H1 Start: 05-31-2022 ambulatory Sarbjit gregg APRN.[employer] MANAGER Work Phone: Neurology Comment on above: Today's visit Start: 05-31-2022 E-mail encounter fro m caregiver Sarbjit Richardson APRN.CNP Work Phone: [facility] Start: 05-31-2022 End: 05-31-2022 Patient encounter procedure Sarbjit Richardson APRN.[employer] MANAGER Work Phone: Neurology Comment on above: Chronic migraine wit hout aura, intractable, without status migrainosus (Primary Dx); Aphasia; Other specified transient cerebral ischemias Start: 05-29-2022 Letter encounter Radha cantu MD Work Phone: [facility] Start: 03-22-2022 End: 03-23-2022 ambulatory YANDEL SHEN Facility:H1 Start: 02-05-2022 End: 02-06-[address] MONO CHRISTIE Facility:H1 Start: 01-09-2022 End: 01-09-[address] LEXI SINGH Facility:H1 Start: 01-01-2022 End: 01-05-2022 Evaluation and management of inpatient JANET FORD [facility] Start: 12-31-2021 End: 01-05-2022 Evaluation and management of inpatient John Saul MD Work Phone: [facility] Renal//Med Surg Comment on above: Acute pancreatitis, unspecified complication status, unspecified pancreatitis type (Primary Dx); Gall stone pancreatitis; EMELIA (acute kidney injury) (HCC) Start: 12-31-2021 End: 01-01-[address] RADHA BURRIS Facility:H1 Start: 12-30-2021 End: 12-31-[address] MAYELIN RODRIGUEZ Facility:H1 Start: 12-29-2021 End: 12-29-[address] VERONICA YOUNG Facility:H1 Start: 12-12-2021 End: 12-13-2021 Evaluation and management of inpatient RADHA BURRIS Facility:[facility] Start: 12-08-2021 End: 12-09-2021 ambulatory YANDEL SHEN Facility:H1 Start: 11-23-2021 Encounter for preprocedural laboratory examination DR MONO CHRISTIE [facility] Start: 11-21-2021 End: 11-22-2021 ambulatory RADHA BURRIS Facility:[facility] Start: 11-17-2021 End: 11-18-[address] MONO CHRISTIE Facility:H1 Start: 11-17-2021 End: 11-18-2021 Encounter for preprocedural laboratory examination DR MONO CHRISTIE Facility:H1 Start: 11-16-2021 End: 11-16-[address] RADHA BURRIS Facility:H1 Start: 11-09-2021 End: 11-10-2021 ambulatory RADHA BURRIS Facility:[facility] Start: 10-03-2021 End: 10-03-[address] Donnell Du Facility: Start: 10-03-2021 End: 10-04-2021 ambulatory YANDEL SHEN Facility:H1 Start: 10-02-2021 End: 10-02-2021 ambulatory Thorshu Fox Other [employer] Other Start: 10-02-2021 Office outpatient vi sit 15 minutes Thor Ruddy [facility] Start: 09-27-2021 End: 09-28-2021 ambulatory YANDEL SHEN Facility:H1 Start: 08-30-2021 End: 08-30-2021 ambulatory Lashawn Estrada Other [employer] Other Start: 08-30-2021 Office outpatient vi sit 15 minutes Lashawn Estrada [facility] Start: 08-15-2021 (Procedure) Short Thor Fox [facility] Start: 08-15-2021 End: 08-15-2021 ambulatory Thor Ruddy Other [employer] Other Start: 08-03-2021 End: 08-03-2021 ambulatory Thor Ruddy Other [employer] Other Start: 08-03-2021 Office outpatient vi sit 25 minutes Thor Ruddy [facility] Start: 07-27-2021 (Procedure) Short Thor Fox [facility] Start: 07-27-2021 End: 07-27-2021 ambulatory Thor Ruddy Other [employer] Other Start: 07-18-2021 (Procedure) Short Thor Fox [facility] Start: 07-18-2021 End: 07-18-2021 ambulatory Thor Ruddy Other [employer] Other Start: 07-03-2021 End: 07-03-2021 Office outpatient visit 15 minutes Donn Ceballos Work Phone: [facility] Start: 06-21-2021 End: 06-21-2021 Office outpatient new 30 minutes Donn L [place] Work Phone: [facility] Start: 05-01-2021 End: 05-01-2021 Subsequent hospital visit by physician Olivia [facility] ([facility]) Work Phone: Radiology Comment on above: Shortness of breath [R06.02] Start: 03-11-2020 End: 03-12-2020 Patient encounter procedure RADHA Ashish [facility] Start: 03-11-2020 End: 03-11-2020 Subsequent hospital visit by physician Rupinder Infusion Bed 3 [facility]FUSION Comment on above: Arrived Start: 02-10-2020 End: 02-10-2020 ambulatory UNKNOWN PROVIDER Facility:[facility] Start: 10-20-2019 Patient encounter procedure Terrell Her PU-Jekugplxjpgcpb-Rwfzm in [facility] 4100 Work Phone: Start: 09-29-2019 Patient encounter procedure Terrell Her W[place]-Omxfgxhljftfwx-Zbtra in [facility] 4100 Work Phone: Start: 09-28-2019 Patient encounter procedure Terrell Her XM-Gcjdfcosiahmsa-Boguo in [facility] 4100 Work Phone: Start: 09-21-2019 Patient encounter procedure Terrell Her [place]-Hpwytoomypclak-Obpxw in [facility] 4100 Work Phone: Start: 09-17-2019 Patient encounter procedure Terrell Her [facility] Work Phone: Start: 09-10-2019 Patient encounter procedure Terrell Her [facility] 6273 Work Phone: Start: 06-29-2019 Patient encounter procedure Terrell Arden [place] [id number] Work Phone: Start: 03-03-2019 Patient encounter procedure Terrell Her [facility] 3316 Work Phone: Start: 04-28-2018 Patient encounter procedure CLAIR MATT Facility:[id number] Procedures Date Procedure Procedure Detail Performing Clinician Start: 08-03-2024 ITP Generic External Data Provider Start: 07-02-2024 ITP Generic External Data Provider Start: 06-04-2024 ITP Generic External Data Provider Start: 04-08-2024 Follow-up visit Follow-up SHUKRI MAME Start: 03-18-2024 Colonoscopy Radha Burris MD Work Phone: Start: 03-16-2024 C. DIFFICILE PCR Generic External Data Provider Start: 01-02-2024 End: 01-02-2024 Radex spine cervical [...] REFLEX TO MG FOR LOW K Shane Villalpando DO Work Phone: Start: 01-03-2022 Hepatic function panel Shnae Villalpando DO Work Phone: Start: 01-03-2022 LACTATE, [...] Phone: Start: 01-02-2022 Assay of lipase Shane T Villalpando DO Work Phone: Start: 01-02-2022 BASIC METABOLIC PANEL W/ REFLEX TO MG FOR LOW K Shane T Villalpando DO Work Phone: Start: 01-02-2022 Hepatic function panel Shane T Villalpando DO Work Phone: Start: 01-02-2022 LACTATE, SEPSIS Shane T Villalpando DO Work Phone: Start: 01-01-2022 LACTATE, SEPSIS Shane T Villalpando DO Work Phone: Start: 01-01-2022 LACTATE, SEPSIS Shane T Villalpando DO Work Phone: Start: 01-01-2022 Assay of troponin quantitative Nohelia phillips Calfee DIRECTOR PAYER - [employer] MANAGER Work Phone: Start: 01-01-2022 LACTATE, SEPSIS Shane T Villalpando DO Work Phone: Start: 01-01-2022 Mri abdomen w/o contrast material Janet Ford DIRECTOR PAYER - [employer] MANAGER Work Phone: Start: 01-01-2022 Assay of troponin quantitative Nohelia Morris DIRECTOR PAYER - [employer] MANAGER Work Phone: Start: 01-01-2022 Blood count complete [...] 1996 panel - Serum or Plasma María Maria R DIRECTOR PAYER.[employer]UR[employer] GENERAL MANAGER Work Phone: Start: 01-01-2022 Assay of troponin quantitative Nohelia Del Valleee DIRECTOR PAYER - [employer] MANAGER Work Phone: Start: 01-01-2022 Assay of troponin quantitative Nohelia Morris DIRECTOR PAYER - [employer] MANAGER Work Phone: Start: 01-01-2022 LACTATE, SEPSIS Shane Villalpando DO Work Phone: Start: 01-01-2022 Culture bacterial blood aerobic w/id isolates Nohelia Morris DIRECTOR PAYER - [employer] GENER[employer] MANAGER Work Phone: Start: 01-01-2022 CULTURE, BLOOD 1 Nohelia Morris DIRECTOR PAYER - [employer]ANT GENERAL MANAGER Work Phone: Start: 12-12-2021 Antibody screen RADHA BURRIS Comment on above: Performed By: #### [id number] #### [facility] [address] Start: 06-21-2021 End: 06-21-2021 Radex spine [...] Treatment Date Care Activity Detail Author Start: 03-18-2034 Screening for malignant neoplasm of colon [facility] Start: 04-16-2033 Screening for malignant neoplasm of colon [facility] Start: 01-01-2027 Lipid panel [facility] Start: 03-05-2026 Diabetes Screening [facility] Start: 01-31-2026 Diabetes Screening Diabetes [facility] Start: 11-21-2025 DIABETES SCREEN DIABETES SCREEN [facility] Start: 11-21-2025 Diabetes Screening Diabetes [facility] Start: 06-09-2025 Medicare Annual Wellness (AWV) Medicare Annual Wellness (AWV) [facility] Start: 06-04-2025 Pneumococcal Vaccine : 65+ Years (1 of 2 - PCV) Pneumococcal Vaccine: 65+ Years (1 of 2 - PCV) [facility] Comment on above: Postponed from 05/21 (Patient Refused) Postponed from 05/21 (Patient Refused) Start: 02-08-2025 End: 02-08-2025 Patient encounter procedure 02/08/2025 9:30 AM EDT Office Visit [facility] [address] [place] [address] Latoya Redding MD [address] [place] [address] [facility] Start: 12-21-2024 Influenza vaccination Influenz a Vaccine (Season Ended) [facility] Start: 12-03-2024 End: 12-03-2024 Patient encounter procedure 12/03/2024 9:00 AM EDT Office Visit [facility] [address] [place] [address] Shivani May NP [address] [place] [phone] [facility] Start: 08-21-2024 End: 08-21-2024 Patient encounter procedure 08/21/2024 2:20 PM EDT Office Visit [facility] [address] [place] [phone] Radha Burris MD [address] [place], [place] [phone] Arrived [facility] Comment on above: Arrived Start: 08-19-2024 End: 08-19-2024 Patient encounter procedure [facility] Comment on above: Arrived Start: 08-10-2024 End: 08-10-2025 25-hydroxyvitamin D3 [Mass/volume] in Serum or Plasma Vitamin D 25 hydroxy Total Lab Routine Vitamin D deficiency Expected: 08/10/2024 (Approximate), Expires: 08/10/2025 [facility] Comment on above: Expected: 08/10/2024 (Approximate), Expires: 08/10/2025 Start: 08-10-2024 End: 08-10-2025 Magnesium [Mass/volume] in Serum or Plasma Magnesium Lab Routine Hypocalcemia Expected: 08/10/2024 (Approximate), Expires: 08/10/2025 [facility] Work Phone: Comment on above: Expected: 08/10/2024 (Approximate), Expires: 08/10/2025 Start: 08-10-2024 End: 08-10-2025 Renal function panel Renal function panel Lab Routine Low serum parathyroid hormone (PTH) Hypocalcemia Expected: 08/10/2024 (Approximate), Expires: 08/10/2025 [facility] Comment on above: Expected: 08/10/2024 (Approximate), Expires: 08/10/2025 Start: 08-10-2024 End: 08-10-2024 Patient encounter procedure [facility] Comment on above: Arrived Start: 07-30-2024 Influenza vaccination Influenza Vacc ine (#1) [facility] Comment on above: Postponed from 12/21 (Patient Refused) Start: 07-22-2024 End: 06-10-2025 TSH W/REFLEX TO FT4 TSH W/REFLEX TO FT4 Lab Routine Acquired hypothyroidism (CMS/HCC) Expected: 07/22/2024 (Approximate), Expires: 06/10/2025 [facility] Work Phone: Comment on above: Expected: 07/22/2024 (Approximate), Expires: 06/10/2025 Start: 07-21-2024 End: 07-21-2024 Patient encounter procedure 07/21/2024 8:00 AM EDT Office Visit [facility] [address] [place] [address] Shashi Pina DO [address] [place] [address] [facility] Start: 07-06-2024 End: 07-06-2025 25-hydroxyvitamin D3 [Mass/volume] in Serum or Plasma Vitamin D 25 hydroxy Total Lab Routine Vitamin D deficiency Expected: 07/06/2024 (Approximate), Expires: 07/06/2025 [facility] Comment on above: Expected: 07/06/2024 (Approximate), Expires: 07/06/2025 Start: 07-06-2024 End: 07-06-2025 Calcium, urine, 24 hour Calcium, urine, 24 hour Lab Routine Postsurgical hypoparathyroidism (CMS/HCC) Expected: 07/06/2024 (Approximate), Expires: 07/06/2025 [facility] Comment on above: Expected: 07/06/2024 (Approximate), Expires: 07/06/2025 Start: 07-06-2024 End: 07-06-2025 CREATINE, 24 HOUR URINE CREATINE, 24 HOUR URINE Lab Routine Postsurgical hypoparathyroidism (CMS/HCC) Expected: 07/06/2024 (Approximate), Expires: 07/06/2025 [facility] Work Phone: Comment on above: Expected: 07/06/2024 (Approximate), Expires: 07/06/2025 Start: 07-06-2024 End: 07-06-2025 Magnesium [Mass/volume] in Serum or Plasma Magnesium Lab Routine Postsurgical hypoparathyroidism (CMS/HCC) Expected: 07/06/2024 (Approximate), Expires: 07/06/2025 [facility] Comment on above: Expected: 07/06/2024 (Approximate), Expires: 07/06/2025 Start: 07-06-2024 End: 07-06-2025 Parathyrin.intact [Mass/volume] in Serum or Plasma PTH, intact Lab Routine Postsurgical hypoparathyroidism ([facility]) Expected: 07/06/2024 (Approximate), Expires: 07/06/2025 [facility] Comment on above: Expected: 07/06/2024 (Approximate), Expires: 07/06/2025 Start: 07-06-2024 End: 07-06-2025 Renal function panel Renal function panel Lab Routine Postsurgical hypoparathyroidism ([facility]) Expected: 07/06/2024 (Approximate), Expires: 07/06/2025 [facility] Comment on above: Expected: 07/06/2024 (Approximate), Expires: 07/06/2025 Start: 07-06-2024 End: 07-06-2024 Patient encounter procedure 07/06/2024 10:00 AM EDT Office Visit [facility] [address] [place] [address] Latoya Redding MD [address] [place] [address] [facility] Start: 06-22-2024 End: 06-22-2025 Acetylcholine receptor, modulating Acetylcholine receptor, modulating Lab Routine Weakness Expected: 06/22/2024 (Approximate), Expires: 06/22/2025 [facility] Work Phone: Comment on above: Expected: 06/22/2024 (Approximate), Expires: 06/22/2025 Start: 06-22-2024 End: 06-22-2025 MR Brain WO and W contrast IV MR brain w and wo contrast routine Imaging High Priority Cranial neuropathy Expected: 06/22/2024, Expires: 06/22/2025 [facility] Comment on above: Expected: 06/22/2024 , Expires: 06/22/2025 Start: 06-22-2024 End: 06-22-2025 MUSK ANTIBODY TEST MUSK ANTIBODY TEST Lab Routine Weakness Expected: 06/22/2024 (Approximate), Expires: 06/22/2025 [facility] Comment on above: Expected: 06/22/2024 (Approximate), Expires: 06/22/2025 Start: 06-09-2024 End: 06-09-2025 Comprehensive metabolic 2000 panel - Serum or Plasma Comprehensive metabolic panel Lab Routine Essential hypertension (CMS/HCC) Expected: 06/09/2024 (Approximate), Expires: 06/09/2025 [facility] Comment on above: Expected: 06/09/2024 (Approximate), Expires: 06/09/2025 Start: 06-09-2024 End: 06-09-2025 CT Chest for screening WO contrast CT lung screening low dose Imaging Routine History of smoking Expected: 06/09/2024, Expires: 06/09/2025 [facility] Comment on above: Expected: 06/09/2024 , Expires: 06/09/2025 Start: 06-09-2024 End: 06-09-2025 Lipid 1996 panel - Serum or Plasma Lipid panel Lab Routine Arteriosclerosis of coronary artery (CMS/HCC) Expected: 06/09/2024 (Approximate), Expires: 06/09/2025 [facility] Work Phone: Comment on above: Expected: 06/09/2024 (Approximate), Expires: 06/09/2025 Start: 06-09-2024 End: 06-09-2025 TSH W/REFLEX TO FT4 TSH W/REFLEX TO FT4 Lab Routine Acquired hypothyroidism (CMS/HCC) Expected: 06/09/2024 (Approximate), Expires: 06/09/2025 [facility] Comment on above: Expected: 06/09/2024 (Approximate), Expires: 06/09/2025 Start: 06-09-2024 End: 06-09-2024 Patient encounter procedure [facility] Comment on above: Arrived Start: 05-19-2024 End: 05-19-2025 Acetylcholine receptor, binding Acetylcholine receptor, binding Lab Routine Ptosis of both eyelids Expected: 05/19/2024 (Approximate), Expires: 05/19/2025 [facility] Work Phone: Comment on above: Expected: 05/19/2024 (Approximate), Expires: 05/19/2025 Start: 05-19-2024 End: 05-19-2025 Acetylcholine receptor, blocking Acetylcholine receptor, blocking Lab Routine Ptosis of both eyelids Expected: 05/19/2024 (Approximate), Expires: 05/19/2025 [facility] Comment on above: Expected: 05/19/2024 (Approximate), Expires: 05/19/2025 Start: 03-10-2024 DIABETES SCREEN DIABETES SCREEN [facility] Start: 03-09-2024 Influenza vaccination Influenza Vacc ine (#1) [facility] Comment on above: Postponed from 12/21 (Patient Refused) Start: 03-05-2024 Complete blood count Hemoglobin/Constantino tocrit [facility] Start: 03-05-2024 Creatinine measurement Serum Creatinine [facility] Start: 02-06-2024 End: 02-06-2024 Patient encounter procedure 02/06/2024 9:00 AM EDT Office Visit [facility] [address] [facility] [place] [phone] Radha Burris MD [address] [facility] [address] [place], [place] [phone] Arrived [facility] Comment on above: Arrived Start: 02-01-2024 Creatinine measurement [facility] Start: 02-01-2024 Pneumococcal Vaccine : 65+ Years (1 - PCV) Pneumococcal Vaccine: 65+ Years (1 - PCV) [facility] Comment on above: Postponed from 05/21 (Patient Refused) Start: 02-01-2024 Pneumococcal Vaccine : 65+ Years (1 of 2 - PCV) Pneumococcal Vaccine: 65+ Years (1 of 2 - PCV) [facility] Comment on above: Postponed from 05/21 (Patient Refused) Start: 02-01-2024 Serum Creatinine Serum Creatinine [facility] Start: 01-24-2024 BP Controlled (<130/80) BP Controlled (<130/80) [facility] Start: 01-13-2024 End: 01-13-2024 Patient encounter procedure 01/13/2024 1:30 PM EDT Office Visit [facility] [address] [place] [phone] Shivani Adams NP [address] [place] [address] Arrived [facility] Comment on above: Arrived Start: 01-06-2024 Cervical Spine MRI w/o contrast, Complete (42090), Body Site: Spine, Sent on: [facility] Start: 01-02-2024 MRI Lumbar Spi ne wo Contrast ([id number]), Body Site: MRI Head/Spine/Chest, Sent on: [facility] Start: 01-01-2024 BP CONTROLLED (<130/80) BP CONTROLLED (<130/80) [facility] Start: 12-24-2023 End: 12-24-2023 Patient encounter procedure 12/24/2023 9:30 AM EDT Office Visit [facility] [address] [place] [address] Radha Burris MD [address] [place], [place] [phone] Arrived [facility] Comment on above: Arrived Start: 12-22-2023 Covid-19 Vaccine ( season) Covid-19 Vaccine ( season) [facility] Start: 12-22-2023 Influenza vaccination Influenza Vacc ine (#1) [facility] Start: 11-22-2023 SERUM CREATININE SERUM CREATININE Cl [facility] Start: 10-20-2023 Influenza vaccination Influenza Vacc ine (#1) [facility] Comment on above: Postponed from 12/21 (Patient Refused) Start: 08-10-2023 Medicare Annual Wellness (AWV) Medicare Annual Wellness (AWV) [facility] Start: 05-31-2023 BP CONTROLLED (<130/80) BP CONTROLLED (<130/80) [facility] Start: 05-31-2023 End: 08-30-2023 [place]/MIGUEL BETHEA SER [facility] Work Phone: Comment on above: Expected: 05/31/2023 , Expires: 08/30/2023 Start: 04-22-2023 Advance Directive Discussion Advance Directive Discussion [facility] Start: 04-22-2023 Depression Assessment Depression Ass essment [facility] Start: 04-16-2023 [facility] Start: 03-21-2023 Patient referral Referrals: Ne urology. Diagnostic testing [facility] Start: 02-01-2023 End: 02-01-2023 Patient encounter procedure 02/01/2023 1:45 PM EDT Appointment [facility] [address] [place] [address] [facility] Start: 01-31-2023 End: 02-07-2023 Bacteria identified in Stool by Culture Stool Culture, Test of Cure Microbiology Routine Diarrhea, unspecified type Expected: 01/31/2023 (Approximate), Expires: 02/07/2023 [facility] Work Phone: Comment on above: Expected: 01/31/2023 (Approximate), Expires: 02/07/2023 Start: 01-31-2023 End: 02-01-2024 Basic metabolic 2000 panel - Serum or Plasma [facility] Work Phone: Comment on above: Expected: 01/31/2023 (Approximate), Expires: 02/01/2024 Start: 01-31-2023 End: 02-01-2024 CT Abdomen and Pelvis W contrast IV CT abdomen pelvis w IV contrast Imaging STAT Left lower quadrant abdominal pain Expected: 01/31/2023, Expires: 02/01/2024 [facility] Service Area Work Phone: Comment on above: Expected: 01/31/2023 , Expires: 02/01/2024 Start: 01-31-2023 End: 02-07-2023 Stool Pathogen Panel, PCR Stool Pathogen Panel, PCR Microbiology Routine Diarrhea, unspecified type Expected: 01/31/2023 (Approximate), Expires: 02/07/2023 [facility] Work Phone: Comment on above: Expected: 01/31/2023 (Approximate), Expires: 02/07/2023 Start: 01-27-2023 DTaP/Tdap/Td vaccine (2 - Td or Tdap) DTaP/Tdap/Td vaccine (2 - Td or Tdap) [facility] Start: 01-27-2023 DTaP/Tdap/Td Vaccine s (2 - Td or Tdap) DTaP/Tdap/Td Vaccines (2 - Td or Tdap) [facility] Start: 01-27-2023 Tetanus vaccination Tetanus (T d or Tdap) Booster [facility] Start: 01-27-2023 Urine microalbumin profile [facility] Start: 01-01-2023 Diabetes mellitus screening Diabetes Screening [facility] Start: 01-01-2023 Hemoglobin A1c measurement A1C test (Diabetic or Prediabetic) [facility] Start: 01-01-2023 HEMOGLOBIN/HEMATOCRIT HEMOGLOBIN/HEM ATOCRIT [facility] Start: 01-01-2023 Hepatitis B surface antibody level LDL Cholesterol [facility] Start: 12-21-2022 Covid-19 Vaccine () Covid-19 Vaccine () [facility] Start: 12-21-2022 Influenza vaccination C [facility] Start: 12-13-2022 FUV, Provider: Yossi Chen, Status: Pen, Time: 10:45 AM FUV, Provider: Yossi Chen, Status: Pen, Time: 10:45 AM [facility] Work Phone: Start: 11-12-2022 NPV, Provider: Yossi hCen, Status: Pen, Time: 2:45 PM NPV, Provider: Yossi Chen, Status: Pen, Time: 2:45 PM [facility] Work Phone: Start: 10-26-2022 VIRFUVHOME, Provider : Arabella Terry, Status: Pen, Time: 3:00 PM [facility], Provider: Arabella Terry, Status: Pen, Time: 3:00 PM PR-Klzhpqlyhsspmm-Pp rmamita MAC[address] Work Phone: Start: 10-15-2022 SURGC, Provider: Arabella Terry, Status: Pen, Time: 8:00 AM [facility], Provider: Arabella Terry, Status: Pen, Time: 8:00 AM QQ-Cggwaiifboaopp-Qq idman Work Phone: Start: 09-24-2022 VIRFUVHOME, Provider : Ranjana Perrin, Status: Pen, Time: 8:30 AM [facility], Provider: Ranjana Perrin, Status: Pen, Time: 8:30 AM CP-Nwjyukvkrccuim-Ei 4100 Work Phone: Start: 09-04-2022 VIRFUVHOME, Provider : Ruby Daily, Status: Pen, Time: 11:30 AM [facility], Provider: Ruby Daily, Status: Pen, Time: 11:30 AM [facility] [address] [place] Work Phone: Start: 08-30-2022 EMOT, Provider: ELIAN PROCEDURE ROOM 10,MG GASTRO, Status: Pen, Time: 8:00 AM EMOT, Provider: ELIAN PROCEDURE ROOM 10,MG GASTRO, Status: Pen, Time: 8:00 AM WQ-Ipnikgrdvmbywq-Jg idman Work Phone: Start: 08-30-2022 EGDANS, Provider: Beth Diego, Status: Pen, Time: 7:30 AM EGDANS, Provider: Beth Diego, Status: Pen, Time: 7:30 AM XX-Tvnworohtdqtdr-Ef idman Work Phone: Start: 08-17-2022 NPV, Provider: Arabella Alarcon, Status: Pen, Time: 10:40 AM NPV, Provider: Arabella Terry, Status: Pen, Time: 10:40 AM Rehab [facility] [address] [place] Work Phone: Start: 08-13-2022 VIRFUVJOSHUA, Provider : Yoanna Quigley, Status: Pen, Time: 3:15 PM VIRFUVJOSHUA, Provider: Yoanna Quigley, Status: Pen, Time: 3:15 PM [facility] [address] [place] Work Phone: Start: 07-31-2022 JAYLON, Provider : Ruby Daily, Status: Pen, Time: 12:30 PM JAYLON, Provider: Ruby Daily, Status: Pen, Time: 12:30 PM [facility]-Arfyc[facility]ulii[facility] Work Phone: Start: 05-31-2022 End: 07-31-2022 Comprehensive metabolic 2000 panel - Serum or Plasma COMP METABOLIC PANEL Lab Routine Chronic migraine without aura, intractable, without status migrainosus Expected: 05/31/2022, Expires: 07/31/2022 [facility] Work Phone: Comment on above: Expected: 05/31/2022 , Expires: 07/31/2022 Start: 04-22-2022 ADVANCE DIRECTIVE DISCUSSION ADVANCE DIRECTIVE DISCUSSION [facility] Start: 04-22-2022 DEPRESSION ASSESSMENT DEPRESSION ASS ESSMENT [facility] Start: 03-10-2022 SERUM CREATININE SERUM CREATININE [facility] Start: 01-20-2022 Influenza vaccination Influenza Vacc ine (#1) [facility] Start: 01-05-2022 End: 01-05-2023 Basic metabolic 2000 panel - Serum or Plasma Basic Metabolic Panel Lab Routine EMELIA (acute kidney injury) (HCC) Expected: 01/05/2022, Expires: 01/05/2023 [employer] Work Phone: Comment on above: Expected: 01/05/2022 , Expires: 01/05/2023 Start: 01-05-2022 End: 01-05-2023 CBC W Auto Differential panel - Blood CBC with Auto Differential Lab Routine Acute pancreatitis, unspecified complication status, unspecified pancreatitis type Expected: 01/05/2022, Expires: 01/05/2023 [employer] Work Phone: Comment on above: Expected: 01/05/2022 , Expires: 01/05/2023 Start: 12-21-2021 Influenza vaccination B [facility] [employer] Start: 07-03-2021 Patient referral [facility] Start: 06-30-2021 Screening for malignant neoplasm of colon [facility] Start: 06-21-2021 End: 06-21-2021 [facility] Start: 06-05-2021 COVID-19 Vaccine (4 - Booster for Moderna series) COVID-19 Vaccine (4 - Booster for Moderna series) [facility] Start: 06-05-2021 COVID-19 VACCINE (4 - Moderna series) COVID-19 VACCINE (4 - Moderna series) [facility] Start: 01-14-2021 Basic metabolic 2000 panel - Serum or Plasma Basic Metabolic Panel [facility] Start: 01-14-2021 Creatinine measurement Basic Metabolic Panel [facility] Start: 01-05-2021 Thyroid stimulating hormone measurement TSH [facility] Start: 12-15-2020 COVID-19 Vaccine (3 - Booster for Moderna series) COVID-19 Vaccine (3 - Booster for Moderna series) [facility] Start: 02-21-2020 Annual wellness visit Annual [facility] Visit ([id number]) [facility] Start: 12-22-2019 Influenza vaccination Flu vaccine (# 1) [employer] Start: 03-03-2019 MRI Brain with out Contrast [facility]ufunisx[facility]-Mhyrmzk ld 201 Work Phone: Start: 2018 Abdominal aortic aneurysm screening Abdominal aortic aneurysm scan [facility] Start: 2018 Abdominal Aortic Aneurysm Screening (Age 65+) Abdominal Aortic Aneurysm Screening (Age 65+) [facility] Start: 2018 Pneumococcal 65+ years Vaccine (1 - PCV) Pneumococcal 65+ years Vaccine (1 - PCV) [facility] [employer] Start: 2018 Pneumococcal 65+ years Vaccine (1 of 1 - PPSV23) Pneumococcal 65+ years Vaccine (1 of 1 - PPSV23) [employer] Start: 2018 Pneumococcal vaccination [facility] Start: 2018 Pneumococcal Vaccine : 65+ (1 - PCV) Pneumococcal Vaccine: 65+ (1 - PCV) [facility] Start: 2018 Pneumococcal Vaccine : 65+ (1 of 1 - PCV) Pneumococcal Vaccine: 65+ (1 of 1 - PCV) [facility] Start: 2018 Pneumococcal Vaccine : 65+ Years (1 - PCV) Pneumococcal Vaccine: 65+ Years (1 - PCV) [facility] Start: 2018 PNEUMOCOCCAL: 65+ (1 - PCV) PNEUMOCOCCAL: 65+ (1 - PCV) [facility] Start: 2013 Hepatitis B (HBV) Vaccine (optional start 60+ years) Hepatitis B (HBV) Vaccine (optional start 60+ years) [facility] Start: 2013 RSV Vaccine (1 - 1-dose 60+ series) RSV Vaccine (1 - 1-dose 60+ series) [facility] Start: 2013 RSV Vaccine (1 - Ris k 60-74 years 1-dose series) RSV Vaccine (1 - Risk 60-74 years 1-dose series) [facility] Start: 2013 RSV vaccine (optiona l 60+ years) RSV vaccine (optional 60+ years) [facility] Start: 2008 PROSTATE CANCER SCREENING DISCUSSION PROSTATE CANCER SCREENING DISCUSSION [facility] Start: 2003 Measurement of occul t blood in single stool specimen FIT [facility] Start: 2003 Screening for malignant neoplasm of colon [facility] Start: 2003 Shingles (RZV) Vaccine (1 of 2) Shingles (RZV) Vaccine (1 of 2) [facility] Start: 2003 Shingles Vaccine (1 of 2) Shingles Vaccine (1 of 2) [facility] Start: 2003 SHINGRIX VACCINE (1 of 2) SHINGRIX VACCINE (1 of 2) [facility] Start: 2003 Zoster Vaccines (1 o f 2) Zoster Vaccines (1 of 2) [facility] Start: 1998 COLOGUARD (FIT-DNA) COLOGUARD (FIT-D NA) [facility] Start: 1998 Colonoscopy COLONOSCOPY [facility] Start: 1998 COLORECTAL CANCER SCREENING COLORECTAL CANCER SCREENING [facility] Start: [address] COLONOGRAPHY [facility] Start: 1998 FECAL OCCULT BLOOD FECAL OCCULT BLOO D [facility] Start: 1998 Screening for malignant neoplasm of colon [facility] Start: 1998 SIGMOIDOSCOPY SIGMOIDOSCOPY [facility] Start: 1993 Lipid panel Lipid screen [place], [place] Start: 1988 Lipid 1996 panel - Serum or Plasma Lipid Screening [facility] Start: 1988 Lipid panel Cholesterol [facility] Start: 1988 LIPID SCREEN LIPID SCREEN [facility] Start: 1972 DTaP/Tdap/Td vaccine (1 - Tdap) DTaP/Tdap/Td vaccine (1 - Tdap) [place], [place] Start: 1972 Hepatitis A (HAV) Vaccine (optional start 19+ years) Hepatitis A (HAV) Vaccine (optional start 19+ years) [facility] Start: 1971 ANNUAL PCP TEAM CHRONIC DISEASE VISIT ANNUAL PCP TEAM CHRONIC DISEASE VISIT [facility] Start: 1971 Anxiety Screening Anxiety Screening [facility] Start: 1971 Depression Screening Depression Scre ening [facility] Start: 1971 Hepatitis B surface antibody level LDL CHOLESTEROL [facility] Start: 1971 Hepatitis C screening [facility] Start: 1971 HEPATITIS C SCREENING HEPATITIS C SC [facility] Start: 1965 Depression Screen Depression Screen [facility] Start: 1959 Pneumococcal Vaccine : 65+ Years (1 of 2 - PCV) Pneumococcal Vaccine: 65+ Years (1 of 2 - PCV) [facility] Start: 1953 ABDOMINAL AORTIC ANEURYSM SCREENING ABDOMINAL AORTIC ANEURYSM SCREENING [facility] Start: 1953 Abdominal aortic aneurysm screening Abdominal Aortic Aneurysm Screening [facility] Start: 1953 Hepatitis C screening Hepatitis C [place], [place] Start: 1953 Lipid panel Lipid Panel [facility] Start: 1953 Medicare Annual Wellness Visit Medicare Annual Wellness Visit (AWV) [facility] Start: 1953 Screening for malignant neoplasm of colon [facility] Start: 1953 Thyroid stimulating hormone measurement TSH Level [facility] End: 01-07-2022 Basic metabolic 2000 panel - Serum or Plasma Basic Metabolic Panel Lab Routine Daily for 3 Days starting 01/05/2022 until 01/07/2022, 1 completed [employer] Work Phone: Comment on above: Daily for 3 Days sta rting 01/05/2022 until 01/07/2022, 1 completed Continuous pulse oximetry Pulse oximetry, continuous Respiratory Care Routine Every 4hr until discontinued starting 01/01/2022 [employer] Work Phone: Comment on above: Every 4hr until disc ontinued starting 01/01/2022 Culture, Blood 1 Culture, Blood 1 Microbiology STAT 01/01/2022 12:00 AM EDT [employer] Work Phone: Culture, Blood 2 Culture, Blood 2 Microbiology STAT 01/01/2022 12:01 AM EDT [employer] Work Phone: End: 12-31-2021 Intermittent pulse oximetry Pulse Oximetry Spot Check Respiratory Care Routine One Time for 1 Occurrences starting 12/31/2021 until 12/31/2021 [employer] Work Phone: Comment on above: One Time for 1 Occur rences starting 12/31/2021 until 12/31/2021 End: 06-30-2023 Mra head w/o contrst material [facility] Work Phone: Comment on above: 1 Occurrences starti ng 05/31/2022 until 06/30/2023 Oxygen therapy [Minimum Data Set] Initiate Oxygen Therapy Protocol Respiratory Care Routine As Needed until discontinued starting 12/31/2021 [employer] Work Phone: Comment on above: As Needed until disc ontinued starting 12/31/2021 Patient Education Colon polyps H emorrhoids (DC) [facility] Work Phone: Surgical Pathology Surgical Path ology Lab Routine Gall stone pancreatitis Release Upon Ordering for 1 Occurrences starting 01/02/2022 [employer] Work Phone: Comment on above: Release Upon Orderin g for 1 Occurrences starting 01/02/2022 FB-Kdddajoyl-Xp jolene ld 201 Work Phone: [facility] [place] [facility] NEGATED: Highlighted row has been ruled out! Planned Goals not documented [facility]-Obiddizte-Xmmgnmi ld 201 Work Phone: Immunizations Immunization Date Immunization Notes Care Provider [facility] 07-15-2020 Moderna (primary 12+ yrs) COVID-19 vaccine, mRNA, spike protein, LNP, PF, 100 mcg/0.5 mL (HHM=449) Radha Burris MD Work Phone: [facility] 07-14-2020 Moderna SARS-CoV-2 Vaccination Generic Provider [facility] 06-17-2020 Moderna (primary 12+ yrs) COVID-19 vaccine, mRNA, spike protein, LNP, PF, 100 mcg/0.5 mL (JNF=843) Radha Burris MD Work Phone: [facility] 06-16-2020 Moderna SARS-CoV-2 Vaccination Generic Provider [facility] 01-28-2016 influenza, injectable, quadrivalent, preservative free Radha Burris MD Work Phone: [facility] 01-28-2016 influenza virus vaccine, unspecified formulation Radha Burris MD Work Phone: [facility] 01-27-2013 tetanus toxoid, reduced diphtheria toxoid, and acellular pertussis vaccine, adsorbed Thor Fox Other [facility] NEGATED: Highlighted row has not occurred!04-28-2019 influenza, high dose seasonal, preservative-free Patient Objection Thor Fox Other [employer] Other NEGATED: Highlighted row has not occurred!06-14-2015 influenza, injectable,quadriva lent, preservative free, pediatric Patient Objection Thor Fox Other [employer] Other Payers Date Payer Category Payer Self-pay [id number] [id number] 2021 Private Health Insurance [employer] Member Subscriber Plan / Payer (Effective 2021-Present) Name: Yoli Antunez Relation to Subscriber: Self Name: Yoli Antunez Payer ID: Not on file Type: Not on file Address: [place] [id number] 2019 Unknown [id number] [id number] .[id number] 2018 Medicare [id number]. 1.13.56.2.7 .[id number] 1959 Medicare [id number] 1959 Unknown [id number] 1953 Unknown [id number] 2.16.840.1.999439.3.579.2. 355 1953 Unknown [id number] 2.16.840.1.119300.3.579.2. 185 1953 Unknown [id number] 2.16.840.1.310211.3.579.2. 732 1953 Unknown [id number] 2.16.840.1.353605.3.579.2. 647 1953 Unknown [id number] 2.16.840.1.379330.3.579.2. 647 1953 Unknown [id number] 2.16.840.1.854218.3.579.2. 647 1953 Unknown [id number] 2.16.840.1.943465.3.579.2. 175 1953 Unknown [id number] 2.16.840.1.863260.3.579.2. 593 1953 Unknown [id number] 2.16.840.1.875881.3.579.2. 593 1953 Unknown [id number] 2.16.840.1.087534.3.579.2. 593 1953 Unknown [id number] 2.16.840.1.262010.3.579.2. 593 1953 Unknown [id number] 2.16.840.1.964675.3.579.2. 593 1953 Unknown [id number] 2.16.840.1.384050.3.579.2. 593 1953 Unknown [id number] 2.16.840.1.113568.3.579.2. 593 1953 Unknown [id number] 2.16.840.1.527877.3.579.2. 593 1953 Unknown [id number] 2.16.840.1.568477.3.579.2. 593 1953 Unknown [id number] 2.16.840.1.988322.3.579.2. 593 1953 Unknown [id number] 2.16.840.1.248308.3.579.2. 593 1953 Unknown [id number] 2.16.840.1.571346.3.579.2. 593 1953 Unknown [id number] 2.16.840.1.244790.3.579.2. 593 1953 Unknown [id number] 2.16.840.1.888554.3.579.2. 356 1953 Unknown [id number] 2.16.840.1.482903.3.579.2. 1046 1953 Unknown [id number] 2.16.840.1.224216.3.579.2. 1046 1953 Unknown [id number] 2.16.840.1.244795.3.579.2. 1046 1953 Unknown [id number] 2.16.840.1.430843.3.579.2. 6 1953 Unknown [id number] 2.16.840.1.074383.3.579.2. 6 1953 Unknown [id number] 2.16.840.1.741805.3.579.2. 356 1953 Unknown [id number] 2.16.840.1.282470.3.579.2. 356 1953 Unknown [id number] 2.16.840.1.428217.3.579.2. 356 1953 Unknown [id number] 2.16.840.1.175162.3.579.2. 1953 Unknown [id number] 2.16.840.1.097080.3.579.2. 1953 Unknown [id number] 2.16.840.1.685433.3.579.2. 356 1953 Unknown [id number] 2.16.840.1.209837.3.579.2. 1953 Unknown [id number] 2.16.840.1.038814.3.579.2. 356 1953 Unknown [id number] 2.16840.1.764586.3.579.2. 356 1953 Unknown [id number] 2.16.840.1.696203.3.579.2. 356 1953 Unknown [id number] 2.16.840.1.593110.3.579.2. 356 1953 Unknown [id number] 2.16.840.1.321390.3.579.2. 356 1953 Unknown [id number] 2.16.840.1.091949.3.579.2. 1953 Unknown [id number] 2.16.840.1.181741.3.579.2. 1068 1953 Unknown [id number] 2.16.840.1.094903.3.579.2. 1068 1953 Unknown [id number] 2.16.840.1.098146.3.579.2. 1244 1953 Unknown [id number] 2.16.840.1.862206.3.579.2. 124 1953 Unknown [id number] 2.16.840.1.779908.3.579.2. 124 1953 Unknown [id number] 2.16.840.1.902171.3.579.2. 6 1953 Unknown [id number] 2.16.840.1.216276.3.579.2. 1314 1953 Unknown [id number] 2.16.840.1.469399.3.579.2. 1258 1953 Unknown [id number] 2.16.840.1.701618.3.579.2. 1258 1953 Unknown [id number] 2.16.840.1.073672.3.579.2. 1258 1953 Unknown [id number] 2.16.840.1.181091.3.579.2. 1258 1953 Unknown [id number] 2.16.840.1.173033.3.579.2. 1258 1953 Unknown [id number] 2.16.840.1.024736.3.579.2. 1258 1953 Unknown [id number] 2.16.840.1.613867.3.579.2. 1258 1953 Unknown [id number] 2.16.840.1.511224.3.579.2. 1258 1953 Unknown [id number] 2.16.840.1.840152.3.579.2. 1259 1953 Unknown [id number] 2.16.840.1.853819.3.579.2. 1259 1953 Unknown [id number] 2.16.840.1.308204.3.579.2. 1259 1953 Unknown [id number] 2.16.840.1.452894.3.579.2. 1259 Private Health Insurance [id number] Unknown [id number] 2.16.840.1.023801.3.579.2. 531 Unknown [id number] 2.16.840.1.193997.3.579.2. 531 Social History Date Type Detail Facility Assertion Unknown if ever smoked [facility] [address] Work Phone: Start: 1955 Sex Assigned At [place] on [place] Start: 06-29-2021 End: 12-17-2023 Sex Assigned At [facility] Start: 01-01-2022 Tobacco smoking status [facility] Never smoked tobacco [employer] Phone: Start: 01-01-2022 End: 06-09-2024 Tobacco use and exposure Smokeless tobacco non-user [employer] Phone: Start: 12-21-2021 End: 01-31-2023 Exposure to SARS-CoV-2 (event) Not sure [employer] Phone: Start: 01-06-2020 End: 06-09-2024 Tobacco smoking status ARIS Ex-smoker [facility] Start: 04-22-1967 End: 01-06-1984 History of tobacco use Current smoker [facility] Start: 04-22-1967 End: 01-06-1984 History of tobacco use Cigarette Smoker [facility] Start: 01-27-2020 End: 08-21-2024 Alcohol intake Current drinker of alcohol (finding) [facility] Start: 01-27-2020 End: 12-17-2023 Alcohol intake [facility] Start: 01-06-2020 History SDOH Alcohol Frequency 2 [facility] Start: 05-04-2021 Alcohol Comment 1 beer once a month [facility] Adult Depression Screening Assessment 1 [facility] Start: 01-02-2024 End: 01-06-2024 Tobacco smoking status NHIS Tobacco smoking consumption unknown [facility] Work Phone: Start: 1955 Sex Assigned At Male [facility] Within the last year , have you [...] 10-02-2022 Tobacco Comment Last smoked:>20 years ago [facility] Start: 10-02-2022 Alcohol Comment one beer a month. Caffeine intake: 2-3 cups per day of coffee [facility] Start: 07-04-2022 Gender identity Identifies as male gender (finding) [facility] Start: 12-01-2020 Alcohol Comment one half of a beer once a month [facility] Start: 03-28-2021 End: 04-27-2021 Exposure to SARS-CoV-2 (event) Unable to assess [facility] Start: 01-02-2024 Alcohol intake Alcohol Use Details [facility] Start: 02-06-2021 Sexual Orientation Straight or heterosexual [facility] Start: 01-25-2023 Sexual Orientation Choose not to disclose [facility] Are you now , , , , never or living with a partner? [facility] History of tobacco use Pipe Smoker [facility] History of tobacco use Cigar Smoker [facility] Start: 08-21-2024 Alcohol Comment Caffeine intake: 1 cups per day of coffee [facility] Medical Equipment Procedure Code Equipment Code Equipment Origin al Text Equipment Identifier Dates Gas Ispan [employer] Intraocular Vision System [id number] 125gm - [id number] Start: 10-15-2017 Lens Iol Ultrase rt 16 - [id number] Start: 10-15-2017 Sleeve 2.4mm 1.5 mm Silicone 30mm Scleral Round Sterile - [id number] Start: 10-15-2017 Strip Silicone [id number] Retinal 9229 Sterile - [id number] Start: 10-15-2017 Goals Date Patient Goal Desired Activity /State Functional Status Date Assessment Result Facility NEGATED: Highlighted row Functional performance Functional status health issues are not documented Disease FB-Xsknbwjyt-Faechc eld 201 Work Phone: Mental Status Date Assessment Result Facility NEGATED: Highlighted row Cognitive function [Interpretation] Cognitive status health issues are not documented Disease EK-Qacqyvxko-Yrwnnk eld 201 Work Phone: Clinical Notes 2018 to 08-21-2024 Radha Burris MD - 08/21/2024 2:20 PM Omar Pina DO - 08/19/2024 9:15 AM Dony Redding MD - 08/10/2024 9:50 AM Dony Redding MD - 07/06/2024 10:00 AM EDT Note Date & Type Note Facility 08-21-2024 History of Present illness Narrative Images from the original note were not included. Yoli Antunez is a 69 y.o. male presents with chief complaint of Dental Injury (Patient had tooth removed two weeks ago Saturday at [facility] for tooth removal but [facility]. Sx of right ear pain, and thick yellow mucus that started the next day. Has been taking ibuprofen 600mg 3-4 times daily. [facility] sent a couple of referrals to ENT, one called back but can not get him in till another week. ) HPI: HPI History of Present Illness The patient presents for evaluation of a molar extraction and eye issues. Two weeks ago, a molar extraction was performed, during which a fragment of the tooth was dislodged into the sinuses. Despite initial expectations of a smooth recovery, persistent infection and severe pain have been experienced since the procedure. Pain is reported in the nose and the entire right side of the head, described as a stabbing sensation. Antibiotics were prescribed for the initial few days post-procedure, but upon exhaustion of the medication, consultation with an ENT specialist was advised. Several referrals have been made, but no responses have been received yet. A CT scan of the sinuses has not been performed. Pain management has been with ibuprofen, and clindamycin has been taken previously. Currently, care is being provided by a neurologist at [facility] due to intermittent eye issues. Further evaluation at [facility] has been recommended by the neurologist. Vision is compromised, and difficulty in opening the eyes is reported, which can only be done with significant effort. Progressive worsening of these symptoms is noted. SUBJECTIVE: MEDICATIONS: ALLERGIES Current Outpatient Medications Medication Instructions calcitriol (ROCALTROL) 0.25 mcg, Oral, Daily calcium carbonate (Os-Atilio) 1250 (500 Ca) MG chewable tablet 1 tablet, Daily RT ergocalciferol (VITAMIN D-2) 1.25 mg, Oral, Weekly levothyroxine (SYNTHROID) 150 mcg, Oral, 4 times weekly, Take on an empty stomach levothyroxine (SYNTHROID) 175 mcg, Oral, 3 times weekly, Take on an empty stomach magnesium citrate solution 296 mL, Daily midodrine (PROAMATINE) 5 mg, 3 times daily nitroglycerin (Nitrostat) 0.4 MG SL tablet DISSOLVE ONE TABLET UNDER THE TONGUE EVERY 5 MINUTES NEEDED FOR CHEST PAIN. pramipexole (MIRAPEX) 1 mg, Oral, Nightly sotalol (Betapace) 120 MG tablet Allergies Allergen Reactions Vancomycin Anaphylaxis, Itching and Rash Itching hands/feet Dofetilide Dizziness and Unknown Unable to speak aphasia Aphasia, dizzy, muscle cramps Penicillins Unknown and Other As a child PAST MEDICAL HISTORY: SOCIAL HISTORY SURGICAL HISTORY: Past Medical History: Diagnosis Date A-fib ([facility]) 11/2020 [facility] Abdominal aortic aneurysm without rupture (CMS/HCC) Aortic root dilatation (CMS/HCC) Biliary acute pancreatitis without necrosis or infection Brain lesion SMALL BRAIN LESION C/W MS Cataract COVID-19 GI bleed History of being hospitalized 12/2021 abd pain, lap ivy History of partial knee replacement left Hypertension (CMS/HCC) Hyperthyroidism (CMS/HCC) Hypothyroid (CMS/HCC) Kidney stone with mild hydonephrosis Orthostatic hypotension Paroxysmal atrial fibrillation (CMS/HCC) Personal history of medical treatment BORDERLINE MS, MG, ALS Vitamin D deficiency Vitreous hemorrhage 08/2017 [facility] Social History Tobacco Use Smoking status: Former Current packs/day: 0.00 Average packs/day: 1.5 packs/day for 14.0 years (21.0 ttl pk-yrs) Types: Cigarettes, Pipe, Cigars Start date: 04/22/1969 Quit date: 1983 Years since quittin.3 Smokeless tobacco: Never Tobacco comments: Last smoked:>20 years ago Vaping Use Vaping status: Never Used Substance Use Topics Alcohol use: Yes Comment: Caffeine intake: 1 cups per day of coffee Drug use: Never Past Surgical History: Procedure Laterality Date ABLATION A-FIB 11/2020 [facility] APPENDECTOMY CARDIAC SURGERY 09/2020 [facility] CATARACT EXTRACTION Right 02/2022 CHOLECYSTECTOMY 01/02/2022 CT ANGIO HEAD 03/05/2023 CT ANGIO HEAD 03/05/2023 CT ANGIOGRAM ABDOMEN 07/06/2021 CT ANGIOGRAM ABDOMEN 07/06/2021 CT ANGIOGRAM ABDOMEN PELVIS 08/24/2021 CT ANGIOGRAM ABDOMEN PELVIS 08/24/2021 CT ANGIOGRAM ABDOMEN PELVIS 09/16/2021 CT ANGIOGRAM ABDOMEN PELVIS 09/16/2021 CT ANGIOGRAM CHEST 07/06/2021 CT ANGIOGRAM CHEST [facility] ANGIOGRAM HEART CORONARY 08/30/[address] ANGIOGRAM HEART CORONARY 07/18/[address] ANGIOGRAM HEART CORONARY 09/16/2021 CT ANGIOGRAM TAVR 09/16/2021 CT ANGIOGRAM HEART CORONARY 08/24/2021 CT ANGIOGRAM TAVR 08/24/2021 CT ANGIOGRAM HEART CORONARY 07/06/2021 CT ANGIOGRAM TAVR 07/06/2021 CT ANGIOGRAM HEART CORONARY 06/20/2017 CT ANGIOGRAM TAVR 06/20/2017 CT ANGIOGRAM HEART CORONARY 04/08/2024 CT ANGIOGRAM TAVR 04/08/2024 CT ANGIOGRAM NECK 03/05/2023 CT ANGIOGRAM NECK 03/05/2023 CT GUIDED TRANSVAGINAL TRANSRECTAL FLUID DRAIN 01/25/2016 CT GUIDED TRANSVAGINAL TRANSRECTAL FLUID DRAIN 01/25/2016 EGD 12/2018 with dilatation EYE SURGERY 04/23/2019 steel removed from left eye HEART CATH 05/02/2018 HEART CATH Left 03/10/2021 HERNIA REPAIR 11/21/2022 KNEE SURGERY RIGHT PARTIAL KNEE REPAIR LAMINECTOMY L4-5 LOOP RECORDER IMPLANT 12/2021 MR ANGIOGRAM HEAD WO IV CONTRAST 07/09/2022 MR ANGIOGRAM HEAD WO IV CONTRAST 07/09/2022 MR ANGIOGRAM NECK WO IV CONTRAST 07/09/2022 MR ANGIOGRAM NECK WO IV CONTRAST 07/09/2022 OTHER SURGICAL HISTORY MULTIPLE BIOPSIES AND EMGs OTHER SURGICAL HISTORY cortisteroid lumbar injections OTHER SURGICAL HISTORY C3,4,and 5 have plates OTHER SURGICAL HISTORY cardiac ablasion (-2019, , -2020) OTHER SURGICAL HISTORY 06/2020 stomach ucler OTHER SURGICAL HISTORY 03/07/2022 Watchman FLX Lt atrial appendage closure device HI THYROIDECTOMY SUBSTERNAL CERVICAL APPROACH 09/24/2018 RETINAL DETACHMENT SURGERY Left reattach THROAT SURGERY 09/13/2022 throat dilation at THYROID SURGERY TOTAL KNEE ARTHROPLASTY Left 05/08/2016 partial TRANSESOPHAGEAL ECHOCARDIOGRAM (CHANTELLE) 04/25/2022 at [place] URETERAL STENT PLACEMENT Left 01/2019 REVIEW OF SYMPTOMS: Review of Systems OBJECTIVE: Vitals: 08/21/24 1410 BP: 132/84 Pulse: 76 Temp: 99.1 F SpO2: 96% Physical Exam Vitals reviewed. Constitutional: Appearance: Normal appearance. HENT: Head: Normocephalic and atraumatic. Right Ear: Hearing and tympanic membrane normal. Left Ear: Hearing and tympanic membrane normal. Nose: Nasal tenderness, mucosal edema and congestion present. Right Turbinates: Swollen. Left Turbinates: Swollen. Right Sinus: Maxillary sinus tenderness present. Left Sinus: Maxillary sinus tenderness present. Cardiovascular: Rate and Rhythm: Normal rate and regular rhythm. Heart sounds: Normal heart sounds, S1 normal and S2 normal. Pulmonary: Effort: Pulmonary effort is normal. Breath sounds: Normal breath sounds and air entry. Musculoskeletal: Cervical back: Normal range of motion and neck supple. Lymphadenopathy: Cervical: No cervical adenopathy. Neurological: Mental Status: He is alert. ASSESSMENT AND PLAN: Assessment & Plan 1. Post-molar extraction infection. - Reports significant pain and infection following a molar extraction 2 weeks ago. - Symptoms include pain on the whole right side of the head and redness and swelling around the extraction site. - A CT scan of the sinuses will be ordered to gather more information for the ENT specialist. - Clindamycin will be prescribed due to allergy to penicillin. 2. Neuromuscular disorder. - Experiences intermittent weakness in the eye, which cannot be opened without force. - Symptoms, including weak swallow, suggest a neuromuscular disorder. - Advised to follow up with the specialist in [place] for further evaluation. - Referral to [place] specialist has been made for further assessment. Assessment/Plan Problem List Items Addressed This Visit None Visit Diagnoses Dental infection - Primary Relevant Medications clindamycin (Cleocin) 300 MG capsule Other Relevant Orders CT SINUS WO IV CONTRAST (Completed) No follow-ups on file. documented in this encounter [facility] 08-19-2024 History of Present illness Narrative Images from the original note were not included. Chief Complaint: Ptosis Subjective Yoli Richelle Hoguelinsey, 69 y.o., male The patient is seen today to follow-up on weakness, he completed an MRI brain and labs since his last office visit. The patient states he had a bout of weakness this morning. It lasted about 1 hour. He states the weakness is mostly in the right eye, he can, at times get ocular migraines with the eye weakness. The migraines generally come on prior to the weakness. He does get aura with migraines. He denies nausea. Review of Systems Constitutional: Positive for fatigue. Negative for fever. Respiratory: Positive for shortness of breath. Cardiovascular: Positive for chest pain and palpitations. Gastrointestinal: Negative for abdominal pain. Neurological: Positive for weakness, light-headedness and headaches. Past Medical History: Diagnosis Date A-fib (CMS/HCC) 11/2020 [facility] Abdominal aortic aneurysm without rupture ([facility]/HCC) Aortic root dilatation ([facility]) Biliary acute pancreatitis without necrosis or infection Brain lesion SMALL BRAIN LESION C/W MS Cataract COVID-19 GI bleed History of being hospitalized 12/2021 abd pain, lap ivy History of partial knee replacement left Hypothyroid (CMS/HCC) Kidney stone with mild hydonephrosis Orthostatic hypotension Paroxysmal atrial fibrillation (CMS/HCC) Personal history of medical treatment BORDERLINE MS, MG, ALS Vitreous hemorrhage 08/2017 Macular Pucker Past Surgical History: Procedure Laterality Date ABLATION A-FIB 11/2020 [facility] APPENDECTOMY CARDIAC SURGERY 09/2020 [facility] CATARACT EXTRACTION Right 02/2022 CHOLECYSTECTOMY 01/02/2022 CT ANGIO HEAD 03/05/2023 CT ANGIO HEAD 03/05/2023 CT ANGIOGRAM ABDOMEN 07/06/2021 CT ANGIOGRAM ABDOMEN 07/06/2021 CT ANGIOGRAM ABDOMEN PELVIS 08/24/2021 CT ANGIOGRAM ABDOMEN PELVIS 08/24/2021 CT ANGIOGRAM ABDOMEN PELVIS 09/16/2021 CT ANGIOGRAM ABDOMEN PELVIS 09/16/2021 CT ANGIOGRAM CHEST 07/06/2021 CT ANGIOGRAM CHEST NOMS DATA LEGACY CT ANGIOGRAM HEART CORONARY 08/30/[address] ANGIOGRAM HEART CORONARY 07/18/[address] ANGIOGRAM HEART CORONARY 09/16/2021 CT ANGIOGRAM TAVR 09/16/2021 CT ANGIOGRAM HEART CORONARY 08/24/2021 CT ANGIOGRAM TAVR 08/24/2021 CT ANGIOGRAM HEART CORONARY 07/06/2021 CT ANGIOGRAM TAVR 07/06/2021 CT ANGIOGRAM HEART CORONARY 06/20/2017 CT ANGIOGRAM TAVR 06/20/2017 CT ANGIOGRAM HEART CORONARY 04/08/2024 CT ANGIOGRAM TAVR 04/08/2024 CT ANGIOGRAM NECK 03/05/2023 CT ANGIOGRAM NECK 03/05/2023 CT GUIDED TRANSVAGINAL TRANSRECTAL FLUID DRAIN 01/25/2016 CT GUIDED TRANSVAGINAL TRANSRECTAL FLUID DRAIN 01/25/2016 EGD 12/2018 with dilatation EYE SURGERY 04/23/2019 steel removed from left eye HEART CATH 05/02/2018 HEART CATH Left 03/10/2021 HERNIA REPAIR 11/21/2022 KNEE SURGERY RIGHT PARTIAL KNEE REPAIR LAMINECTOMY L4-5 LOOP RECORDER IMPLANT 12/2021 MR ANGIOGRAM HEAD WO IV CONTRAST 07/09/2022 MR ANGIOGRAM HEAD WO IV CONTRAST 07/09/2022 MR ANGIOGRAM NECK WO IV CONTRAST 07/09/2022 MR ANGIOGRAM NECK WO IV CONTRAST 07/09/2022 OTHER SURGICAL HISTORY MULTIPLE BIOPSIES AND EMGs OTHER SURGICAL HISTORY cortisteroid lumbar injections OTHER SURGICAL HISTORY C3,4,and 5 have plates OTHER SURGICAL HISTORY cardiac ablasion (, , -2020) OTHER SURGICAL HISTORY 06/2020 stomach ucler OTHER SURGICAL HISTORY 03/07/2022 Watchman FLX Lt atrial appendage closure device HI THYROIDECTOMY SUBSTERNAL CERVICAL APPROACH 09/24/2018 RETINAL DETACHMENT SURGERY Left reattach THROAT SURGERY 09/13/2022 throat dilation at TOTAL KNEE ARTHROPLASTY Left 05/08/2016 partial TRANSESOPHAGEAL ECHOCARDIOGRAM (CHANTELLE) 04/25/2022 [place] URETERAL STENT PLACEMENT Left 01/2019 Family History Problem Relation Name Age of Onset Lung cancer Mother Arabella Hypertension Mother Arabella Stroke Mother Arabella Cancer Mother Arabella Aneurysm Father Jamil Lung cancer Father Jamil Hypertension Father Jamil Cancer Father Jamil No Known Problems Brother Social History Tobacco Use Smoking status: Former Current packs/day: 0.00 Average packs/day: 1.5 packs/day for 14.0 years (21.0 ttl pk-yrs) Types: Cigarettes, Pipe, Cigars Start date: 04/22/1969 Quit date: 1983 Years since quittin.3 Smokeless tobacco: Never Tobacco comments: Last smoked:>20 years ago Substance Use Topics Alcohol use: Yes Comment: one beer a month. Caffeine intake: 2-3 cups per day of coffee Allergies: Vancomycin, Dofetilide, and Penicillins Vitals: 08/19/24 0853 BP: 138/90 Pulse: 80 Body mass index is 28.08 kg/m . Weight: 243 lb Neurologic exam: Mental status: Awake, alert to person, place and time. Recent and remote memory are intact. Language is fluent without aphasia. Attention and concentration are normal. Fund of knowledge is appropriate for level of education. Cranial nerves: CN II: Visual acuity is normal. Visual fernandez full to confrontation. CN III, IV, : pupils equal round and reactive to light. Extraocular movements intact. No ptosis present. No ptosis on sustained upgaze. Neck flexor strength is full. CN V: Facial sensation is normal. CN VII: Full and symmetric facial movement. Patient does seem to perhaps have some lower motor neuron facial weakness on the right with some delayed eye closure CN VIII: Hearing is normal to finger rub bilaterally: CN IX and X: Palate elevates symmetrically. CN XI: Shoulder shrug is normal bilaterally. CN XII: Tongue is midline without atrophy or fasciculation. Motor: RUE Strength deltoid, , biceps , triceps , wrist extensors , wrist flexor , economic developer strength 5/5. LUE Strength deltoid , biceps , triceps , wrist extensors , wrist flexor , economic developer strength 5/5. RLE Strength illopsoas, quadriceps, tibialis anterior, and gastrocnemius strength 5/5. LLE Strength illopsoas, quadriceps, tibialis anterior, and gastrocnemius strength 5/5. Normal tone x4 extremities. Bulk is normal. Sensory: Sensation is intact to light touch throughout Four extremities. Reflexes: RUE biceps reflex 2+ brachioradialis reflex 2+ . LUE biceps reflex 2+ brachioradialis reflex 2+ . RLE knee reflex 2+ . LLE knee reflex 2+ . Gonzales's sign negative. Coordination: [id number] testing and rapid alternating movements are normal Gait: Normal Review and summary of old records: Acetylcholine modulating antibody and MSK antibody: Negative EMG of the bilateral upper extremities on 05/03/2023: Evidence of moderate carpal tunnel syndrome bilaterally CTA and CTP on 03/05/23: 1.Patent head and neck arterial vasculature with mild atheromatous disease. No definite large vessel occlusion. 2.No definite perfusion abnormality suspicious for significant ischemia. If there is further clinical concern follow-up with MRI brain recommended. I have reviewed extensive notations from [facility] in January 2023 which detailed the patient has had unremarkable CTA of the head and neck, MRA of the head and neck, MR venogram, MRI of the C-spine and MRI of the brain. It also notes the patient had tilt-table testing attempted but was terminated due to symptoms. Plan was to repeat testing in order skin biopsy at that time. Assessment/Plan Diagnoses and all orders for this visit: Weakness Acquired ptosis of right eyelid It is my impression that the patient has ptosis of the right eyelid. This seems to fluctuate. Patient did have a CT and CT angiogram in February of 2023. He also had a acetylcholine blocking and binding antibodies checked which were unremarkable in April of 2024. He has tried pyridostigmine in the past but did not tolerate this. Routine EMG of the upper extremities did not identify any neuromuscular process or active denervation. MUSK and acetylcholine modulating antibody are negative as well Plan: Given that labs and imaging are unremarkable the patient may be a candidate for a referral to a tertiary care center for single fiber EMG or seronegative MG. Based on these concerns, I will send the patient to Dr. Bhavesh Huitron in at [facility] to evaluate further. Signs and symptoms of myasthenic crisis discussed in detail. Patient understands with any shortness of breath or neck flexor weakness that he should present to the emergency department right away for further evaluation and treatment. Atrial fibrillation / orthostatic hypotension /sick sinus syndrome/pacemaker and watchman device Patient does have a history of atrial fibrillation status post ablation, history of orthostasis and lightheadedness and has seen Cardiology Clinic with concern for sick sinus syndrome with a goal for idea of pacemaker implantation with Dr. Vilchis in [place]. Certainly close follow up with Cardiology team in [facility] are of the utmost importance. Plan: Close follow up with Cardiology for management of Watchman device and pacemaker Given the patient's history of atrial fibrillation, we did have an extensive discussion today about stroke risk factors and signs and symptoms of stroke and the patient understands to proceed to the emergency department right away with any such signs or symptoms as these could be life-threatening. Pt has been fully educated on their diagnosis, lab results, treatment options, follow up plan, return instructions, and discussion of mental health issues Answers submitted by the patient for this visit: Neurological Problem Questionnaire (Submitted on 08/12/2024) Chief Complaint: Neurologic complaint loss of balance: Yes near-syncope: Yes Onset quality: gradually Focality: facial aura: Yes documented in this encounter [facility] 08-10-2024 History of Present illness Narrative Yoli Antunez is a 69 y.o. male No ref. provider found presents with chief complaint of Follow-up (PTH LAB) HPI: IM 07/2024 Follow-up visit 08/10/2024 for lab TSH 1.27, PTH 9, vitamin-D 48, calcium 7.9 ( 8.6-10.3), magnesium 2.3, GFR 48, he is currently on calcium 600 twice a day, vitamin-D 50,000 once a week, so he is taking magnesium once a day the [facility] 06/2024 Patient sent from [facility] had him better for low PTH 10 open 60-76) like low calcium 8.2 ( 8.6-10.3 the lowest 7.3 last year, ionized calcium in the low side 4.5 ( 4.7- 5.5, creatinine 1.2 GFR 63 he has kidney stone before he has plaque sure but not in his spine or his hip, and he is on calcium 500 mg once a day and also vitamin-D once a week he also history of thyroid surgery 5 years ago most likely has hypoparathyroidism due to the surgery. SUBJECTIVE: MEDICATIONS: Current Outpatient Medications Medication Instructions calcitriol (ROCALTROL) 0.25 mcg, Oral, Daily calcium carbonate (Os-Atilio) 1250 (500 Ca) MG chewable tablet 1 tablet, Daily RT ergocalciferol (VITAMIN D-2) 1.25 mg, Oral, Weekly FLUoxetine (PROZAC) 20 mg, Oral, Daily levothyroxine (SYNTHROID) 150 mcg, Oral, 4 times weekly, Take on an empty stomach levothyroxine (SYNTHROID) 175 mcg, Oral, 3 times weekly, Take on an empty stomach magnesium citrate solution 296 mL, Daily nitroglycerin (Nitrostat) 0.4 MG SL tablet DISSOLVE ONE TABLET UNDER THE TONGUE EVERY 5 MINUTES NEEDED FOR CHEST PAIN. pramipexole (MIRAPEX) 1 mg, Oral, Nightly sotalol (Betapace) 120 MG tablet ALLERGIES: Allergies Allergen Reactions Vancomycin Anaphylaxis, Itching and Rash Itching hands/feet Dofetilide Dizziness and Unknown Unable to speak aphasia Aphasia, dizzy, muscle cramps Penicillins Unknown and Other As a child Past Medical History: Diagnosis Date A-fib (CMS/HCC) 11/2020 [facility] Abdominal aortic aneurysm without rupture ([facility]/HCC) Aortic root dilatation ([facility]/HCC) Biliary acute pancreatitis without necrosis or infection Brain lesion SMALL BRAIN LESION C/W MS Cataract COVID-19 GI bleed History of being hospitalized 12/2021 abd pain, lap ivy History of partial knee replacement left Hypothyroid (CMS/HCC) Kidney stone with mild hydonephrosis Orthostatic hypotension Paroxysmal atrial fibrillation (CMS/HCC) Personal history of medical treatment BORDERLINE MS, MG, ALS Vitreous hemorrhage (CMS/HCC) 08/2017 Macular Pucker Past Surgical History: Procedure Laterality Date ABLATION A-FIB 11/2020 [facility] APPENDECTOMY CARDIAC SURGERY 09/2020 [facility] CATARACT EXTRACTION Right 02/2022 CHOLECYSTECTOMY 01/02/2022 CT ANGIO HEAD 03/05/2023 CT ANGIO HEAD 03/05/2023 CT ANGIOGRAM ABDOMEN 07/06/2021 CT ANGIOGRAM ABDOMEN 07/06/2021 CT ANGIOGRAM ABDOMEN PELVIS 08/24/2021 CT ANGIOGRAM ABDOMEN PELVIS 08/24/2021 CT ANGIOGRAM ABDOMEN PELVIS 09/16/2021 CT ANGIOGRAM ABDOMEN PELVIS 09/16/2021 CT ANGIOGRAM CHEST 07/06/2021 CT ANGIOGRAM CHEST NOMS DATA LEGACY CT ANGIOGRAM HEART CORONARY 08/30/[address] ANGIOGRAM HEART CORONARY 07/18/[address] ANGIOGRAM HEART CORONARY 09/16/2021 CT ANGIOGRAM TAVR 09/16/2021 CT ANGIOGRAM HEART CORONARY 08/24/2021 CT ANGIOGRAM TAVR 08/24/2021 CT ANGIOGRAM HEART CORONARY 07/06/2021 CT ANGIOGRAM TAVR 07/06/2021 CT ANGIOGRAM HEART CORONARY 06/20/2017 CT ANGIOGRAM TAVR 06/20/2017 CT ANGIOGRAM HEART CORONARY 04/08/2024 CT ANGIOGRAM TAVR 04/08/2024 CT ANGIOGRAM NECK 03/05/2023 CT ANGIOGRAM NECK 03/05/2023 CT GUIDED TRANSVAGINAL TRANSRECTAL FLUID DRAIN 01/25/2016 CT GUIDED TRANSVAGINAL TRANSRECTAL FLUID DRAIN 01/25/2016 EGD 12/2018 with dilatation EYE SURGERY 04/23/2019 steel removed from left eye HEART CATH 05/02/2018 HEART CATH Left 03/10/2021 HERNIA REPAIR 11/21/2022 KNEE SURGERY RIGHT PARTIAL KNEE REPAIR LAMINECTOMY L4-5 LOOP RECORDER IMPLANT 12/2021 MR ANGIOGRAM HEAD WO IV CONTRAST 07/09/2022 MR ANGIOGRAM HEAD WO IV CONTRAST 07/09/2022 MR ANGIOGRAM NECK WO IV CONTRAST 07/09/2022 MR ANGIOGRAM NECK WO IV CONTRAST 07/09/2022 OTHER SURGICAL HISTORY MULTIPLE BIOPSIES AND EMGs OTHER SURGICAL HISTORY cortisteroid lumbar injections OTHER SURGICAL HISTORY C3,4,and 5 have plates OTHER SURGICAL HISTORY cardiac ablasion (-2019, 9, -2020) OTHER SURGICAL HISTORY 06/2020 stomach ucler OTHER SURGICAL HISTORY 03/07/2022 Watchman FLX Lt atrial appendage closure device HI THYROIDECTOMY SUBSTERNAL CERVICAL APPROACH 09/24/2018 RETINAL DETACHMENT SURGERY Left reattach THROAT SURGERY 09/13/2022 throat dilation at TOTAL KNEE ARTHROPLASTY Left 05/08/2016 partial TRANSESOPHAGEAL ECHOCARDIOGRAM (CHANTELLE) 04/25/2022 [place] URETERAL STENT PLACEMENT Left 01/2019 REVIEW OF SYMPTOMS: 14 POINT OF SYSTEM REVIEWED AND NEGATIVE OBJECTIVE: No results found for: TSH Lab Results Component Value Date T4FREE 1.3 06/09/2024 T4FREE 1.5 06/26/2023 T4FREE 1.2 02/07/2023 Visit Vitals BP 100/68 Pulse 78 Resp 18 Ht 6' 6 Wt 257 lb SpO2 96% BMI 29.70 kg/m Smoking Status Former BSA 2.54 m Physical Exam Constitutional: Appearance: Normal appearance. He is normal weight. HENT: Head: Normocephalic and atraumatic. Right Ear: External ear normal. Nose: Nose normal. Mouth/Throat: Pharynx: Oropharynx is clear. Eyes: Extraocular Movements: Extraocular movements intact. Pupils: Pupils are equal, round, and reactive to light. Cardiovascular: Rate and Rhythm: Normal rate and regular rhythm. Pulmonary: Effort: Pulmonary effort is normal. Abdominal: General: Abdomen is flat. Palpations: Abdomen is soft. Musculoskeletal: General: Normal range of motion. Skin: General: Skin is warm. Neurological: General: No focal deficit present. Mental Status: He is alert. Psychiatric: Mood and Affect: Mood normal. Behavior: Behavior normal. Surgical scar due to thyroidectomy. ASSESSMENT AND PLAN: Assessment/Plan Diagnoses and all orders for this visit: Low serum parathyroid hormone (PTH) - Renal function panel; Future Due to postsurgical hypoparathyroidism Hypocalcemia - calcitriol (Rocaltrol) 0.25 MCG capsule; Take 1 capsule (0.25 mcg) by mouth Daily - ergocalciferol (Vitamin D-2) 1.25 MG (09048 UT) capsule; Take 1 capsule (1.25 mg) by mouth 1 (one) time per week - Magnesium; Future - Renal function panel; Future We will continue his calcium 600 twice a day, I will add calcitriol 0.25 mcg once daily. Vitamin D deficiency - Vitamin D 25 hydroxy Total; Future We will continue with vitamin-D 50,000 once a week Postoperative hypothyroidism (CMS/HCC) To follow with his primary care. Postsurgical hypoparathyroidism (CMS/HCC) Plan as above we will continue with calcium vitamin-D we will add calcitriol Stage 3a chronic kidney disease (HCC) (CMS/HCC) GFR 48 we will watch Follow up in about 6 months (around 02/09/2025). documented in this encounter [facility] 07-14-2024 Note Placed in MRI mode p er REP Biotronik, MRI mode expires 07/28/2024. 90 DOO. Patient tolerated procedure well. Post MRI scan assisted patient to dressing room. Pt has a Biotronik Edora 8 DR-T pacemaker model 706694- RA lead model 495503- RV lead model 363475- conditional for 1.5 and 3T- normal op mode- whole body 2 W/kg- info in Epic- must be in MRI mode prior to scan- sees [facility] cardiology- 06/07/21 pt has a Watchman FLX device- conditional for 1.5 and 3T- max spatial gradient 2500 G/cm- normal op mode- whole body GOOD 2 W/kg- LK 06/13/22 Pt has a 2 Resolution clips in stomach- conditional for 3T and 1.5- max spatial gradient 2500 G/cm- normal op mode- whole body GOOD 2 W/kg- 15 mins scanning- LK 07/09/22 pt states his loop recorder was removed- 06/25/24 [facility] 07-06-2024 History of Present illness Narrative Yoli Antunez is a 69 y.o. male Eleonora Leo,* presents with chief complaint of Thyroid Problem (PARATHYROID NEW REF/LAB) HPI: HPI 06/2024 Patient sent from [facility] had him better for low PTH 10 open 60-76) like low calcium 8.2 ( 8.6-10.3 the lowest 7.3 last year, ionized calcium in the low side 4.5 ( 4.7- 5.5, creatinine 1.2 GFR 63 he has kidney stone before he has plaque sure but not in his spine or his hip, and he is on calcium 500 mg once a day and also vitamin-D once a week he also history of thyroid surgery 5 years ago most likely has hypoparathyroidism due to the surgery. SUBJECTIVE: MEDICATIONS: Current Outpatient Medications Medication Instructions calcium carbonate (Os-Atilio) 1250 (500 Ca) MG chewable tablet 1 tablet, Daily RT FLUoxetine (PROZAC) 20 mg, Oral, Daily levothyroxine (SYNTHROID) 150 mcg, Oral, 4 times weekly, Take on an empty stomach levothyroxine (SYNTHROID) 175 mcg, Oral, 3 times weekly, Take on an empty stomach magnesium citrate solution 296 mL, Daily midodrine (PROAMATINE) 5 mg, 3 times daily nitroglycerin (Nitrostat) 0.4 MG SL tablet DISSOLVE ONE TABLET UNDER THE TONGUE EVERY 5 MINUTES NEEDED FOR CHEST PAIN. pramipexole (MIRAPEX) 1 mg, Oral, Nightly sotalol (Betapace) 120 MG tablet ALLERGIES: Allergies Allergen Reactions Vancomycin Anaphylaxis, Itching and Rash Itching hands/feet Dofetilide Dizziness and Unknown Unable to speak aphasia Aphasia, dizzy, muscle cramps Penicillins Unknown and Other As a child Past Medical History: Diagnosis Date A-fib ([facility]) 11/2020 [facility] Abdominal aortic aneurysm without rupture ([facility]) Aortic root dilatation ([facility]) Biliary acute pancreatitis without necrosis or infection Brain lesion SMALL BRAIN LESION C/W MS Cataract COVID-19 GI bleed History of being hospitalized 12/2021 abd pain, lap ivy History of partial knee replacement left Hypothyroid ([facility]/HCC) Kidney stone with mild hydonephrosis Orthostatic hypotension Paroxysmal atrial fibrillation ([facility]/HCC) Personal history of medical treatment BORDERLINE MS, MG, ALS Vitreous hemorrhage ([facility]) 08/2017 Macular Pucker Past Surgical History: Procedure Laterality Date ABLATION A-FIB 11/2020 [facility] APPENDECTOMY CARDIAC SURGERY 09/2020 [facility] CATARACT EXTRACTION Right 02/2022 CHOLECYSTECTOMY 01/02/2022 CT ANGIO HEAD 03/05/2023 CT ANGIO HEAD 03/05/2023 CT ANGIOGRAM ABDOMEN 07/06/2021 CT ANGIOGRAM ABDOMEN 07/06/2021 CT ANGIOGRAM ABDOMEN PELVIS 08/24/2021 CT ANGIOGRAM ABDOMEN PELVIS 08/24/2021 CT ANGIOGRAM ABDOMEN PELVIS 09/16/2021 CT ANGIOGRAM ABDOMEN PELVIS 09/16/2021 CT ANGIOGRAM CHEST 07/06/2021 CT ANGIOGRAM CHEST NOMS DATA LEGACY CT ANGIOGRAM HEART CORONARY 08/30/[address] ANGIOGRAM HEART CORONARY 07/18/[address] ANGIOGRAM HEART CORONARY 09/16/2021 CT ANGIOGRAM TAVR 09/16/2021 CT ANGIOGRAM HEART CORONARY 08/24/2021 CT ANGIOGRAM TAVR 08/24/2021 CT ANGIOGRAM HEART CORONARY 07/06/2021 CT ANGIOGRAM TAVR 07/06/2021 CT ANGIOGRAM HEART CORONARY 06/20/2017 CT ANGIOGRAM TAVR 06/20/2017 CT ANGIOGRAM HEART CORONARY 04/08/2024 CT ANGIOGRAM TAVR 04/08/2024 CT ANGIOGRAM NECK 03/05/2023 CT ANGIOGRAM NECK 03/05/2023 CT GUIDED TRANSVAGINAL TRANSRECTAL FLUID DRAIN 01/25/2016 CT GUIDED TRANSVAGINAL TRANSRECTAL FLUID DRAIN 01/25/2016 EGD 12/2018 with dilatation EYE SURGERY 04/23/2019 steel removed from left eye HEART CATH 05/02/2018 HEART CATH Left 03/10/2021 HERNIA REPAIR 11/21/2022 KNEE SURGERY RIGHT PARTIAL KNEE REPAIR LAMINECTOMY L4-5 LOOP RECORDER IMPLANT 12/2021 MR ANGIOGRAM HEAD WO IV CONTRAST 07/09/2022 MR ANGIOGRAM HEAD WO IV CONTRAST 07/09/2022 MR ANGIOGRAM NECK WO IV CONTRAST 07/09/2022 MR ANGIOGRAM NECK WO IV CONTRAST 07/09/2022 OTHER SURGICAL HISTORY MULTIPLE BIOPSIES AND EMGs OTHER SURGICAL HISTORY cortisteroid lumbar injections OTHER SURGICAL HISTORY C3,4,and 5 have plates OTHER SURGICAL HISTORY cardiac ablasion (, , -2020) OTHER SURGICAL HISTORY 06/2020 stomach ucler OTHER SURGICAL HISTORY 03/07/2022 Watchman FLX Lt atrial appendage closure device HI THYROIDECTOMY SUBSTERNAL CERVICAL APPROACH 09/24/2018 RETINAL DETACHMENT SURGERY Left reattach THROAT SURGERY 09/13/2022 throat dilation at TOTAL KNEE ARTHROPLASTY Left 05/08/2016 partial TRANSESOPHAGEAL ECHOCARDIOGRAM (CHANTELLE) 04/25/2022 at [place] URETERAL STENT PLACEMENT Left 01/2019 REVIEW OF SYMPTOMS: 14 POINT OF SYSTEM REVIEWED AND NEGATIVE OBJECTIVE: No results found for: TSH Lab Results Component Value Date T4FREE 1.3 06/09/2024 T4FREE 1.5 06/26/2023 T4FREE 1.2 02/07/2023 No results found for: FREET3 Visit Vitals BP 114/80 Pulse 77 Resp 16 Ht 6' 6 Wt 254 lb SpO2 98% BMI 29.35 kg/m Smoking Status Former BSA 2.52 m Physical Exam Constitutional: Appearance: Normal appearance. He is normal weight. HENT: Head: Normocephalic and atraumatic. Right Ear: External ear normal. Nose: Nose normal. Mouth/Throat: Pharynx: Oropharynx is clear. Eyes: Extraocular Movements: Extraocular movements intact. Pupils: Pupils are equal, round, and reactive to light. Cardiovascular: Rate and Rhythm: Normal rate and regular rhythm. Pulmonary: Effort: Pulmonary effort is normal. Abdominal: General: Abdomen is flat. Palpations: Abdomen is soft. Musculoskeletal: General: Normal range of motion. Skin: General: Skin is warm. Neurological: General: No focal deficit present. Mental Status: He is alert. Psychiatric: Mood and Affect: Mood normal. Behavior: Behavior normal. Surgical scar due to thyroidectomy. ASSESSMENT AND PLAN: Assessment/Plan Diagnoses and all orders for this visit: Postsurgical hypoparathyroidism (CMS/[facility]) - CREATINE, 24 HOUR URINE; Future - Magnesium; Future - Renal function panel; Future - Calcium, urine, 24 hour; Future - PTH, intact; Future Most likely due to his thyroid surgery before since calcium and PTH in the low side, recommend to double the dose of calcium to 500 twice a day, continue with vitamin D once a week, the goal to keep calcium above 8 if calcium dropped less than 8, then we will start him on calcitriol 0.25 mcg once daily, I will see him in 6 weeks I will check 24 hour urine calcium and all lab together, and give further recommendation. Low serum parathyroid hormone (PTH) Due to postsurgical hypoparathyroidism. Hypocalcemia We will double the dose of calcium to 500 mg twice a day. Vitamin D deficiency - Vitamin D 25 hydroxy Total; Future Continue vitamin-D 50,000 once a week we will check lab in 6 weeks and adjust. Postoperative hypothyroidism (CMS/HCC) To follow with his PCP Follow up in about 6 weeks (around 08/17/2024). documented in this encounter [facility] 06-22-2024 History of Present illness Narrative Images from the original note were not included. Chief Complaint: Ptosis Subjective Yoli Antunez, 69 y.o., male Patient presents today for a neurologic consult at the request of Eleonora Leo CNP for ptosis or right eyelid, concern for myasthenia gravis. Patient states this has been intermittent for the last few months. He does get ocular migraines. He gets about one migraine a month. He admits to intermittent aphasia. This has been happening a few years and happens once a months on average. He admits to issues with swallowing and choking, generalized weakness, imbalance and some falls. He has had 3-4 falls in the last year. He does admit a hx with POTS. Acute Neurological Problem The patient's primary symptoms include focal sensory loss, near-syncope, a visual change and weakness. This is a chronic problem. The current episode started more than 1 month ago. The neurological problem developed insidiously. The problem has been gradually worsening since onset. There was facial and left-sided focality noted. Associated symptoms include an aura, chest pain, dizziness, fatigue, headaches, light-headedness, palpitations and shortness of breath. Pertinent negatives include no abdominal pain. Past treatments include aspirin, medication and walking. The treatment provided no relief. Review of Systems Constitutional: Positive for fatigue. Respiratory: Positive for shortness of breath. Cardiovascular: Positive for chest pain, palpitations and near-syncope. Gastrointestinal: Negative for abdominal pain. Neurological: Positive for dizziness, weakness, light-headedness and headaches. Past Medical History: Diagnosis Date A-fib (CMS/HCC) 11/2020 [facility] Abdominal aortic aneurysm without rupture (CMS/HCC) Aortic root dilatation (CMS/HCC) Biliary acute pancreatitis without necrosis or infection Brain lesion SMALL BRAIN LESION C/W MS Cataract COVID-19 GI bleed History of being hospitalized 12/2021 abd pain, lap iyv History of partial knee replacement left Hypothyroid (CMS/HCC) Kidney stone with mild hydonephrosis Orthostatic hypotension Paroxysmal atrial fibrillation (CMS/HCC) Personal history of medical treatment BORDERLINE MS, MG, ALS Vitreous hemorrhage (CMS/HCC) 08/2017 Macular Pucker Past Surgical History: Procedure Laterality Date ABLATION A-FIB 11/2020 [facility] APPENDECTOMY CARDIAC SURGERY 09/2020 [facility] CATARACT EXTRACTION Right 02/2022 CHOLECYSTECTOMY 01/02/2022 CT ANGIO HEAD 03/05/2023 CT ANGIO HEAD 03/05/2023 CT ANGIOGRAM ABDOMEN 07/06/2021 CT ANGIOGRAM ABDOMEN 07/06/2021 CT ANGIOGRAM ABDOMEN PELVIS 08/24/2021 CT ANGIOGRAM ABDOMEN PELVIS 08/24/2021 CT ANGIOGRAM ABDOMEN PELVIS 09/16/2021 CT ANGIOGRAM ABDOMEN PELVIS 09/16/2021 CT ANGIOGRAM CHEST 07/06/2021 CT ANGIOGRAM CHEST NOMS DATA LEGACY CT ANGIOGRAM HEART CORONARY 08/30/[address] ANGIOGRAM HEART CORONARY 07/18/[address] ANGIOGRAM HEART CORONARY 09/16/2021 CT ANGIOGRAM TAVR 09/16/2021 CT ANGIOGRAM HEART CORONARY 08/24/2021 CT ANGIOGRAM TAVR 08/24/2021 CT ANGIOGRAM HEART CORONARY 07/06/2021 CT ANGIOGRAM TAVR 07/06/2021 CT ANGIOGRAM HEART CORONARY 06/20/2017 CT ANGIOGRAM TAVR 06/20/2017 CT ANGIOGRAM HEART CORONARY 04/08/2024 CT ANGIOGRAM TAVR 04/08/2024 CT ANGIOGRAM NECK 03/05/2023 CT ANGIOGRAM NECK 03/05/2023 CT GUIDED TRANSVAGINAL TRANSRECTAL FLUID DRAIN 01/25/2016 CT GUIDED TRANSVAGINAL TRANSRECTAL FLUID DRAIN 01/25/2016 EGD 12/2018 with dilatation EYE SURGERY 04/23/2019 steel removed from left eye HEART CATH 05/02/2018 HEART CATH Left 03/10/2021 HERNIA REPAIR 11/21/2022 KNEE SURGERY RIGHT PARTIAL KNEE REPAIR LAMINECTOMY L4-5 LOOP RECORDER IMPLANT 12/2021 MR ANGIOGRAM HEAD WO IV CONTRAST 07/09/2022 MR ANGIOGRAM HEAD WO IV CONTRAST 07/09/2022 MR ANGIOGRAM NECK WO IV CONTRAST 07/09/2022 MR ANGIOGRAM NECK WO IV CONTRAST 07/09/2022 OTHER SURGICAL HISTORY MULTIPLE BIOPSIES AND EMGs OTHER SURGICAL HISTORY cortisteroid lumbar injections OTHER SURGICAL HISTORY C3,4,and 5 have plates OTHER SURGICAL HISTORY cardiac ablasion (, , -2020) OTHER SURGICAL HISTORY 06/2020 stomach ucler OTHER SURGICAL HISTORY 03/07/2022 Watchman FLX Lt atrial appendage closure device HI THYROIDECTOMY SUBSTERNAL CERVICAL APPROACH 09/24/2018 RETINAL DETACHMENT SURGERY Left reattach THROAT SURGERY 09/13/2022 throat dilation at TOTAL KNEE ARTHROPLASTY Left 05/08/2016 partial TRANSESOPHAGEAL ECHOCARDIOGRAM (CHANTELLE) 04/25/2022 [place] URETERAL STENT PLACEMENT Left 01/2019 Family History Problem Relation Name Age of Onset Lung cancer Mother Arabella Hypertension Mother Arabella Stroke Mother Arabella Cancer Mother Arabella Aneurysm Father Jamil Lung cancer Father Jamil Hypertension Father Jamil Cancer Father Jamil No Known Problems Brother Social History Tobacco Use Smoking status: Former Current packs/day: 0.00 Average packs/day: 1.5 packs/day for 14.0 years (21.0 ttl pk-yrs) Types: Cigarettes, Pipe, Cigars Start date: 04/22/1969 Quit date: 1983 Years since quittin.1 Smokeless tobacco: Never Tobacco comments: Last smoked:>20 years ago Substance Use Topics Alcohol use: Yes Comment: one beer a month. Caffeine intake: 2-3 cups per day of coffee Allergies: Vancomycin, Dofetilide, and Penicillins Vitals: 06/22/24 1310 BP: 128/90 Pulse: 91 SpO2: 98% Body mass index is 29.19 kg/m . weight: 252 lb 9.6 oz Neurologic exam: Mental status: Awake, alert to person, place and time. Recent and remote memory are intact. Language is fluent without aphasia. Attention and concentration are normal. Fund of knowledge is appropriate for level of education. Cranial nerves: CN II: Visual acuity is normal. Visual fernandez full to confrontation. CN III, IV, : pupils equal round and reactive to light. Extraocular movements intact. No ptosis present. CN V: Facial sensation is normal. CN VII: Full and symmetric facial movement. CN VIII: Hearing is normal to finger rub bilaterally: CN IX and X: Palate elevates symmetrically. CN XI: Shoulder shrug is normal bilaterally. CN XII: Tongue is midline without atrophy or fasciculation. Motor: RUE Strength deltoid, , biceps , triceps , wrist extensors , wrist flexor , economic developer strength 5/5. LUE Strength deltoid , biceps , triceps , wrist extensors , wrist flexor , economic developer strength 5/5. RLE Strength illopsoas, quadriceps, tibialis anterior, and gastrocnemius strength 5/5. LLE Strength illopsoas, quadriceps, tibialis anterior, and gastrocnemius strength 5/5. Normal tone x4 extremities. Bulk is normal. Sensory: Sensation is intact to light touch throughout Four extremities. Reflexes: RUE biceps reflex 2+ brachioradialis reflex 2+ . LUE biceps reflex 2+ brachioradialis reflex 2+ . RLE knee reflex 2+ . LLE knee reflex 2+ . Gonzales's sign negative. Coordination: [id number] testing and rapid alternating movements are normal Gait: Normal Review and summary of old records: EMG of the bilateral upper extremities on 05/03/2023: Evidence of moderate carpal tunnel syndrome bilaterally CTA and CTP on 03/05/23: 1.Patent head and neck arterial vasculature with mild atheromatous disease. No definite large vessel occlusion. 2.No definite perfusion abnormality suspicious for significant ischemia. If there is further clinical concern follow-up with MRI brain recommended. I have reviewed extensive notations from [facility] in January 2023 which detailed the patient has had unremarkable CTA of the head and neck, MRA of the head and neck, MR venogram, MRI of the C-spine and MRI of the brain. It also notes the patient had tilt-table testing attempted but was terminated due to symptoms. Plan was to repeat testing in order skin biopsy at that time. Assessment/Plan Diagnoses and all orders for this visit: Weakness Acquired ptosis of right eyelid It is my impression that the patient has ptosis of the right eyelid. This seems to fluctuate. Patient did have a CT and CT angiogram in February of 2023. He also had a acetylcholine blocking and binding antibodies checked which were unremarkable in April of 2024. Other labs for evaluation of myasthenia gravis not been checked. He has tried pyridostigmine in the past but did not tolerate this. Routine EMG of the upper extremities did not identify any neuromuscular process or active denervation Plan: Check acetylcholine modulating antibody check musk antibody Pending results we could consider the need for imaging for thymoma We may also consider the need for steroids. Chart notations indicate the patient previously had a poor response to pyridostigmine If the laboratory evaluation is unremarkable the patient may be a candidate for a referral to a tertiary care center for single fiber EMG. Signs and symptoms of myasthenic crisis discussed in detail. Patient understands with any shortness of breath or neck flexor weakness that he should present to the emergency department right away for further evaluation and treatment. Atrial fibrillation / orthostatic hypotension /sick sinus syndrome/pacemaker and watchman device Patient does have a history of atrial fibrillation status post ablation, history of orthostasis and lightheadedness and has seen Cardiology Clinic with concern for sick sinus syndrome with a goal for idea of pacemaker implantation with Dr. Vilchis in [place]. Certainly close follow up with Cardiology team in [facility] are of the utmost importance. Plan: Close follow up with Cardiology for management of Watchman device and pacemaker Given the patient's history of atrial fibrillation, we did have an extensive discussion today about stroke risk factors and signs and symptoms of stroke and the patient understands to proceed to the emergency department right away with any such signs or symptoms as these could be life-threatening. If the patient's MRI of the brain and remaining laboratory evaluation for myasthenia gravis are unremarkable, we may ask that the patient be seen for tertiary care center for opinion by [facility] neuromuscular institute given the complex cardiac history and concern for seronegative myasthenia gravis. Certainly high-degree medical decision-making with need for extensive investigation in ongoing discussion investigation about potentially life-threatening issue such as myasthenic crisis. Pt has been fully educated on their diagnosis, lab results, treatment options, follow up plan, return instructions, and discussion of mental health issues documented in this encounter [facility] 06-09-2024 History of Present illness Narrative Images from the original note were not included. Yoli Antunez is a 69 y.o. male presents with chief complaint of Medicare Annual Wellness Visit Subsequent HPI: Over the past 2 weeks, how often have you been bothered by any of the following problems? Little interest or pleasure in doing things: Not at all Feeling down, depressed, or hopeless: Not at all Patient Health Questionnaire-2 Score: 0 Over the past 2 weeks, how often have you been bothered by any of the following problems? Trouble falling or staying asleep, or sleeping too much: Several days Feeling tired or having little energy: Several days Poor appetite or overeating: Not at all Feeling bad about yourself - or that you are a failure or have let yourself or your family down: Not at all Trouble concentrating on things, such as reading the newspaper or watching television: Not at all Moving or speaking so slowly that other people could have noticed? Or the opposite - being so fidgety or restless that you have been moving around a lot more than usual.: Not at all Thoughts that you would be better off or hurting yourself in some way: Not at all Patient Health Questionnaire-9 Score: 2 Calderon Fall Risk History of Falling, Immediate or Within 3 Months: Yes Secondary Diagnosis: No Ambulatory Aid: Walks without aid/bedrest/nurse assist Intravenous Therapy/Heparin Lock: No Gait/Transferring: Normal/bedrest/immobile Mental Status: Oriented to own ability Calderon Fall Risk Score: 25 Health Risk Assessment Form Do you need help eating, bathing, using the toilet, dressing, or getting around your home?: No Can you prepare your own meals?: Yes Can you do your own housework without help?: Yes Can you shop for groceries or clothes without help?: Yes Do you exercise for about 20 minutes 3 or more days a week?: Yes How confident are you that you can control and manage most of your health problems?: Somewhat confident Can you mange your money, credit cards and accounts, pay bills and taxes?: Yes Vision Screening: Yes, no gross abnormalities Hearing Screening: Not done Cognitive Screening Three Word Registration: Arturo [place], Finger Clock Drawing: Normal Clock - 2 Three Word Recall: All 3 words correct - 3 Total Score (0-5 Points): 5 Pain Assessment Pain Score: 5 - Moderate pain History of Present Illness The patient presents for a Medicare wellness visit. He is seeking a referral to a neurologist due to suspected myasthenia gravis, which remains undiagnosed at this time. He experiences ptosis in one eye, rendering him unable to open it. This symptom occurs 2 to 3 times per week and began approximately 1.5 to 2 months ago. The duration of each episode varies, lasting anywhere from 1 to 4 hours. He reports no associated pain or visual disturbances but describes a sensation of weakness in the affected eye. A few weeks prior, he consulted an soft tile setter who conducted an ice test, which yielded positive results. Subsequent preliminary blood work was negative. He has previously sought neurological care at the [facility]. He has a history of smoking but does not recall undergoing any lung screening tests. He is aware of some calcification on the left side of his lungs but does not currently follow up with a pool cleaner. SOCIAL HISTORY The patient used to smoke a long time ago. SUBJECTIVE: MEDICATIONS: ALLERGIES Current Outpatient Medications Medication Instructions calcium carbonate (Os-Atilio) 1250 (500 Ca) MG chewable tablet 1 tablet, Daily RT FLUoxetine (PROZAC) 20 mg, Oral, Daily levothyroxine (SYNTHROID) 150 mcg, Oral, Daily before breakfast midodrine (PROAMATINE) 5 mg, 3 times daily nitroglycerin (NITROSTAT) 0.4 mg, Sublingual, Every 5 min PRN pramipexole (MIRAPEX) 1 mg, Oral, Nightly sotalol (Betapace) 120 MG tablet Allergies Allergen Reactions Vancomycin Anaphylaxis, Itching and Rash Itching hands/feet Dofetilide Dizziness and Unknown Unable to speak aphasia Aphasia, dizzy, muscle cramps Penicillins Unknown and Other As a child PAST MEDICAL HISTORY: SOCIAL HISTORY SURGICAL HISTORY: Past Medical History: Diagnosis Date A-fib ([facility]) 11/2020 [facility] Abdominal aortic aneurysm without rupture ([facility]) Aortic root dilatation ([facility]) Biliary acute pancreatitis without necrosis or infection Brain lesion SMALL BRAIN LESION C/W MS Cataract COVID-19 GI bleed History of being hospitalized 12/2021 abd pain, lap ivy History of partial knee replacement left Hypothyroid ([facility]) Kidney stone with mild hydonephrosis Orthostatic hypotension Paroxysmal atrial fibrillation ([facility]) Personal history of medical treatment BORDERLINE MS, MG, ALS Vitreous hemorrhage ([facility]) 08/2017 Macular Pucker Social History Tobacco Use Smoking status: Former Current packs/day: 0.00 Average packs/day: 1.5 packs/day for 14.0 years (21.0 ttl pk-yrs) Types: Cigarettes, Pipe, Cigars Start date: 04/22/1969 Quit date: 1983 Years since quittin.1 Smokeless tobacco: Never Tobacco comments: Last smoked:>20 years ago Vaping Use Vaping status: Never Used Substance Use Topics Alcohol use: Yes Comment: one beer a month. Caffeine intake: 2-3 cups per day of coffee Drug use: Never Past Surgical History: Procedure Laterality Date ABLATION A-FIB 11/2020 [facility] APPENDECTOMY CARDIAC SURGERY 09/2020 [facility] CATARACT EXTRACTION Right 02/2022 CHOLECYSTECTOMY 01/02/2022 CT ANGIO HEAD 03/05/2023 CT ANGIO HEAD 03/05/2023 CT ANGIOGRAM ABDOMEN 07/06/2021 CT ANGIOGRAM ABDOMEN 07/06/2021 CT ANGIOGRAM ABDOMEN PELVIS 08/24/2021 CT ANGIOGRAM ABDOMEN PELVIS 08/24/2021 CT ANGIOGRAM ABDOMEN PELVIS 09/16/2021 CT ANGIOGRAM ABDOMEN PELVIS 09/16/2021 CT ANGIOGRAM CHEST 07/06/2021 CT ANGIOGRAM CHEST NOMS DATA LEGACY CT ANGIOGRAM HEART CORONARY 08/30/[address] ANGIOGRAM HEART CORONARY 07/18/[address] ANGIOGRAM HEART CORONARY 09/16/2021 CT ANGIOGRAM TAVR 09/16/2021 CT ANGIOGRAM HEART CORONARY 08/24/2021 CT ANGIOGRAM TAVR 08/24/2021 CT ANGIOGRAM HEART CORONARY 07/06/2021 CT ANGIOGRAM TAVR 07/06/2021 CT ANGIOGRAM HEART CORONARY 06/20/2017 CT ANGIOGRAM TAVR 06/20/2017 CT ANGIOGRAM HEART CORONARY 04/08/2024 CT ANGIOGRAM TAVR 04/08/2024 CT ANGIOGRAM NECK 03/05/2023 CT ANGIOGRAM NECK 03/05/2023 CT GUIDED TRANSVAGINAL TRANSRECTAL FLUID DRAIN 01/25/2016 CT GUIDED TRANSVAGINAL TRANSRECTAL FLUID DRAIN 01/25/2016 EGD 12/2018 with dilatation EYE SURGERY 04/23/2019 steel removed from left eye HEART CATH 05/02/2018 HEART CATH Left 03/10/2021 HERNIA REPAIR 11/21/2022 KNEE SURGERY RIGHT PARTIAL KNEE REPAIR LAMINECTOMY L4-5 LOOP RECORDER IMPLANT 12/2021 MR ANGIOGRAM HEAD WO IV CONTRAST 07/09/2022 MR ANGIOGRAM HEAD WO IV CONTRAST 07/09/2022 MR ANGIOGRAM NECK WO IV CONTRAST 07/09/2022 MR ANGIOGRAM NECK WO IV CONTRAST 07/09/2022 OTHER SURGICAL HISTORY MULTIPLE BIOPSIES AND EMGs OTHER SURGICAL HISTORY cortisteroid lumbar injections OTHER SURGICAL HISTORY C3,4,and 5 have plates OTHER SURGICAL HISTORY cardiac ablasion (, , -2020) OTHER SURGICAL HISTORY 06/2020 stomach ucler OTHER SURGICAL HISTORY 03/07/2022 Watchman FLX Lt atrial appendage closure device HI THYROIDECTOMY SUBSTERNAL CERVICAL APPROACH 09/24/2018 RETINAL DETACHMENT SURGERY Left reattach THROAT SURGERY 09/13/2022 throat dilation at TOTAL KNEE ARTHROPLASTY Left 05/08/2016 partial TRANSESOPHAGEAL ECHOCARDIOGRAM (CHANTELLE) 04/25/2022 at [place] URETERAL STENT PLACEMENT Left 01/2019 REVIEW OF SYMPTOMS: Review of Systems Constitutional: Negative. HENT: Negative. Eyes: Negative. Respiratory: Negative. Cardiovascular: Negative. Gastrointestinal: Negative. Genitourinary: Negative. Musculoskeletal: Negative. Skin: Negative. Neurological: Positive for facial asymmetry. Endocrine: Negative. OBJECTIVE: Vitals: 06/09/24 0945 BP: 116/80 Pulse: 67 Temp: 95.9 F SpO2: 99% Physical Exam Vitals and nursing note reviewed. Constitutional: Appearance: Normal appearance. HENT: Head: Normocephalic and atraumatic. Right Ear: Hearing and tympanic membrane normal. Left Ear: Hearing and tympanic membrane normal. Nose: Nose normal. Right Turbinates: Not enlarged. Left Turbinates: Not enlarged. Right Sinus: No maxillary sinus tenderness or frontal sinus tenderness. Left Sinus: No maxillary sinus tenderness or frontal sinus tenderness. Mouth/Throat: Lips: [place]. Mouth: Mucous membranes are moist. Pharynx: Oropharynx is clear. Uvula midline. Tonsils: No tonsillar exudate. Eyes: General: Lids are normal. Vision grossly intact. Gaze aligned appropriately. Extraocular Movements: Extraocular movements intact. Conjunctiva/sclera: Conjunctivae normal. Neck: Thyroid: No thyroid mass or thyromegaly. Vascular: No carotid bruit. Trachea: Trachea normal. Cardiovascular: Rate and Rhythm: Normal rate and regular rhythm. Pulses: Normal pulses. Heart sounds: Normal heart sounds. Pulmonary: Effort: Pulmonary effort is normal. Breath sounds: Normal breath sounds and air entry. Abdominal: General: Abdomen is flat. Bowel sounds are normal. Palpations: Abdomen is soft. Musculoskeletal: Cervical back: Full passive range of motion without pain, normal range of motion and neck supple. Lymphadenopathy: Cervical: No cervical adenopathy. Skin: General: Skin is warm. Capillary Refill: Capillary refill takes less than 2 seconds. Neurological: Mental Status: He is alert and oriented to person, place, and time. Sensory: Sensation is intact. Motor: Motor function is intact. Coordination: Coordination is intact. Psychiatric: Attention and Perception: Attention and perception normal. Mood and Affect: Mood and affect normal. Speech: Speech normal. Behavior: Behavior is cooperative. Thought Content: Thought content normal. ASSESSMENT AND PLAN: Assessment/Plan Diagnoses and all orders for this visit: Restless legs syndrome Stable. POTS (postural orthostatic tachycardia syndrome) Stable. Follows with cardiology. Aneurysm of ascending aorta without rupture (CMS/HCC) Stable. Arteriosclerosis of coronary artery ([facility]/HCC) - Lipid panel; Future Paroxysmal atrial fibrillation (CMS/HCC) Stable. Follows with cardiology. Coronary artery disease involving [place] heart, unspecified vessel or lesion type, unspecified whether angina present (CMS/[facility]) Essential hypertension ([facility]) - Comprehensive metabolic panel; Future Discussed current management plan. Goal BP less then 130/80. Discussed heart healthy diet, increase fruits and vegetables, limit salt intake. Encouraged increase physical exercise, try to be as active as possible at least 150 mins per week. Importance of weight management with a goal BMI less then 27 discussed. Discussed complications of uncontrolled blood pressure. Patient instructed to monitor BP's 1-2 times a week, keep a log, and bring to next visit. Barriers to care and medication compliance discussed. Patient voices understanding of meds. Presence of Watchman left atrial appendage closure device Transient ischemic attack Gastroesophageal reflux disease without esophagitis Stable. Benign prostatic hyperplasia with urinary obstruction Stage 3a chronic kidney disease (HCC) (CMS/HCC) Chronic gouty arthritis Vitamin D deficiency Chronic migraine without aura, with intractable migraine, so stated, with status migrainosus ([facility]/HCC) Meniere's disease, unspecified laterality Acquired ptosis of right eyelid - Ambulatory referral to Neurology; Future Acquired hypothyroidism (CMS/HCC) - TSH W/REFLEX TO FT4; Future History of smoking - CT lung screening low dose; Future Bronchiectasis, uncomplicated (CMS/HCC) 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) ADA (obstructive sleep apnea) Medicare annual wellness visit, subsequent Discussed height, weight and BMI. Encouraged healthy diet and regular exercise. Discussed vaccines and encouraged yearly flu shot. Annual eye and dental exam. Vaccines and cancer screens reviewed for completeness. Screen labs as needed. Assessed needs for tools in the home for independence. Living will and durable power of civil litigation attorney reviewed. Updated patient problem list and reviewed all current medications with patient. Given time to ask questions. Assessment & Plan 1. Suspected myasthenia gravis. The patient reports symptoms including eyelid drooping and difficulty keeping the eye open, which occurs two to three times a week and started about 1.5 to 2 months ago. An ice test performed by the soft tile setter was positive, but preliminary blood work was negative. A referral to [facility] in [place] will be initiated for further evaluation. 2. Health maintenance. The patient is up to date on colon cancer screening. Given the history of smoking, a lung screening is recommended as no previous CT chest screening is on record. Blood work will be ordered to assess cholesterol levels, metabolic panel, and thyroid function. A lung screening (CT scan) will be scheduled to check for any lung nodules or masses. No follow-ups on file. documented in this encounter [facility] 05-28-2024 Telephone encounter Note Lab Results given [facility] 05-28-2024 Miscellaneous Notes Lab Results given ----- Message from Dr. Radha Burris sent at 05/26/2024 10:06 PM EST ----- His recent testing requested by the specialist is negative. documented in this encounter [facility] 05-27-2024 Telephone encounter Note ----- Message from Dr. Radha Burris sent at 05/26/2024 10:06 PM EST ----- His recent testing requested by the specialist is negative. [facility] 04-28-2024 Note Patient here for [facility]. He was seeing Dr. Vilchis in the office and he was sent to the ED per Dr. Vilchis for ECG changes. Still having chest pain, SOB, palpitations, lightheadedness, and syncope. Review of Systems Cardiovascular: Positive for chest pain, dyspnea on exertion, leg swelling, palpitations and syncope. Respiratory: Positive for shortness of breath. Musculoskeletal: Positive for arthritis, back pain and joint pain. Neurological: Positive for light-headedness. All other systems reviewed and are negative. [facility] 04-28-2024 Note Cardiovascular Medic ine [facility] SUBJECTIVE Chief Complaint Patient presents with Coronary Artery Disease Atrial Fibrillation Chest Pain Yoli Antunez Jr. is a 68 y.o. male here for hospital follow-up. HPI PMHx: CAD s/p PCI, a.fib/flutter s/p ablation and s/p WATCHMAN, SND s/p PPM implant on 07/09/2023, orthostatic hypotension, TIA, POTS, intermittent expressive aphasia, HTN, HLD, chronic chest pain He was started on Imdur after his recent hospital stay. He reports feeling worse taking the Imdur. He c/o feeling fatigue, labile BPs. Still has intermittent chest pain. He gets SOB with exertion. He feels dizzy when his BP is too low. Denies LE edema, syncope. Discharge Summary Final Discharge Diagnosis: Unstable angina Coronary artery disease status post cardiac catheterization on 08/2023, mid LAD 30%, second diagonal 60 to 70%, subtotally occluded mid to distal small posterolateral branch Chronic heart failure with mildly reduced ejection fraction, EF 45%, very close to previous echos of 50% Primary hypertension Paroxsymal atrial fibrillation on sotalol status post watchman not on anticoagulation Sinus node dysfunction status post dual-chamber permanent pacemaker Admission Diagnosis: Abnormal ECG [R94.31] Acute electrocardiogram changes [R94.31] Chest pain, unspecified type [R07.9] Hospital course: Yoli Antunez Jr. is a 68 y.o. male for primary hypertension, atrial fibrillation on sotalol status post watchman not on anticoagulation, sinus node dysfunction status post dual-chamber permanent pacemaker, coronary artery disease status post cardiac catheterization 08/2023, POTS who presented to [facility] ED with ongoing chest pain that has been worsening over the last year, he was seen in our cardiology clinic as outpatient and was sent to emergency department for concern of unstable angina. He reported that his chest pain is episodic, worse with exertion, relieved with nitroglycerin, he has been compliant with his medications including aspirin and Lipitor. His initial troponin was negative, repeat troponin remained negative. EKG with nonspecific T wave abnormality. Lexiscan stress done on 04/10 and read as: Negative perfusion stress test for ischemia, Normal myocardial perfusion with soft tissue artifact, Normal global left ventricular function with EF 53, Transient ischemia dilatation of the left ventricle is seen that is associated with severe multi-vessel coronary artery disease, volume overload or hypertensive heart disease, TID index score is 1.24 and Negative Lexiscan ECG stress test for ischemia. Imdur added to his regimen and will be discharged today and to F/U with cardiology and PCP in 1 week. Patient Active Problem List Diagnosis A-fib (CMS/HCC) Essential hypertension Coronary artery disease involving [place] coronary artery of [place] heart without angina pectoris Recurrent falls History [...] of autonomic nervous system Difficulty swallowing solids Chest pain Chronic gouty arthritis Dehydration Artificial knee joint [...] Status post right knee replacement Aphasia Bilateral pa (more content not included)... [facility] 04-10-2024 Note Hospital Medicine Discharge Summary Final Discharge Diagnosis: Unstable angina Coronary artery disease status post cardiac catheterization on 08/2023, mid LAD 30%, second diagonal 60 to 70%, subtotally occluded mid to distal small posterolateral branch Chronic heart failure with mildly reduced ejection fraction, EF 45%, very close to previous echos of 50% Primary hypertension Paroxsymal atrial fibrillation on sotalol status post watchman not on anticoagulation Sinus node dysfunction status post dual-chamber permanent pacemaker Admission Diagnosis: Abnormal ECG [R94.31] Acute electrocardiogram changes [R94.31] Chest pain, unspecified type [R07.9] Hospital course: Yoli Antunez Jr. is a 68 y.o. male for primary hypertension, atrial fibrillation on sotalol status post watchman not on anticoagulation, sinus node dysfunction status post dual-chamber permanent pacemaker, coronary artery disease status post cardiac catheterization 08/2023, POTS who presented to [facility] ED with ongoing chest pain that has been worsening over the last year, he was seen in our cardiology clinic as outpatient and was sent to emergency department for concern of unstable angina. He reported that his chest pain is episodic, worse with exertion, relieved with nitroglycerin, he has been compliant with his medications including aspirin and Lipitor. His initial troponin was negative, repeat troponin remained negative. EKG with nonspecific T wave abnormality. Lexiscan stress done on 04/10 and read as: Negative perfusion stress test for ischemia, Normal myocardial perfusion with soft tissue artifact, Normal global left ventricular function with EF 53, Transient ischemia dilatation of the left ventricle is seen that is associated with severe multi-vessel coronary artery disease, volume overload or hypertensive heart disease, TID index score is 1.24 and Negative Lexiscan ECG stress test for ischemia. Imdur added to his regimen and will be discharged today and to F/U with cardiology and PCP in 1 week. Surgical, Invasive or Diagnostic Procedures Done During Admission: Lexiscan stress test Consultations During Admission: Cardiology Dear Dr. Fatuma MD, Yoli is advised to follow up with you within 1-2 weeks. Items to follow up in ambulatory setting: None Follow-up with: Cardiology Scheduled appointments: No future appointments. Your medication list START taking these medications Instructions Last Dose Given Next Dose Due isosorbide mononitrate ER 30 mg 24 hr tablet Commonly known as: Imdur Take 1 tablet (30 mg) by mouth in the morning. Do not crush or chew. CHANGE how you take these medications Instructions Last Dose Given Next Dose Due sotalol 120 mg tablet Commonly known as: Betapace What changed: Another medication with the same name was removed. Continue taking this medication, and follow the directions you see here. Take 1 tablet (120 mg) by mouth every 12 (twelve) hours. CONTINUE taking these medications Instructions Last Dose Given Next Dose Due aspirin 81 mg chewable tablet Chew 1 tablet (81 mg) in the morning. Do not start before March 08, 2022. atorvastatin 40 mg tablet Commonly known as: Lipitor Take 1 tablet (40 mg) by mouth at bedtime. calcium 500 mg calcium (1,250 mg) tablet levothyroxine 150 mcg tablet Commonly known as: Synthroid, Levoxyl midodrine 5 mg tablet Commonly known as: Proamatine Take 1 tablet (5 mg) by mouth three times daily. Where to Get Your Medications These medications were sent to [facility] [address] [place] [address] [address] [place] [address] [address] isosorbide mononitrate ER 30 mg 24 hr tablet Yoli is allergic to penicillins, tikosyn [dofetilide], and vancomycin. Disposition: Home or Self Care () Discharge Condition: Stable Code Status: Full Code Diagnostic Results Hematology: Results from last 7 days Lab Units 04/08/24 1545 04/08/24 1532 WBC AUTO 10*3/uL -- 6.74 HEMOGLOBIN g/dL -- 13.9 HEMATOCRIT % -- 42.7 MCV fL -- 86.3 PLATELETS AUTO 10*3/uL -- 215 INR 1.03 -- Chemistry: Results from last 7 days Lab Units 04/10/24 0429 04/09/24 0621 04/08/24 1532 SODIUM mmol/L 140 141 140 POTASSIUM mmol/L 4.2 4.1 4.0 CHLORIDE mmol/L 106 108* 107 CO2 mmol/L 26 25 24 BUN mg/dL 25 27* 29* CREATININE mg/dL 1.41* 1.34* 1.60* GLUCOSE mg/dL 85 86 85 CALCIUM mg/dL 7.7* 7.6* 8.3* Test Results Pending At Discharge: Diet at the time of discharge: regular diet and cardiac diet Activity: Normal activity as tolerated Objective Blood pressure 105/78, pulse 78, temperature 36.6 ???C (97.9 ???F), temperature source Temporal, resp. rate 14, height 1.981 m (6' 6 ), weight 113 kg (250 lb), SpO2 94%. General: Alert and oriented x3. Cardiology: Normal rate, regular rhythm. Lungs: Clear to auscultation, no wheezes, rales or rhonchi, symmetric air entry. Abdomen: (more content not included)... [facility] 04-10-2024 Note Hospital Medicine Discharge Summary Final Discharge Diagnosis: Unstable angina Coronary artery disease status post cardiac catheterization on 08/2023, mid LAD 30%, second diagonal 60 to 70%, subtotally occluded mid to distal small posterolateral branch Chronic heart failure with mildly reduced ejection fraction, EF 45%, very close to previous echos of 50% Primary hypertension Paroxsymal atrial fibrillation on sotalol status post watchman not on anticoagulation Sinus node dysfunction status post dual-chamber permanent pacemaker Admission Diagnosis: Abnormal ECG [R94.31] Acute electrocardiogram changes [R94.31] Chest pain, unspecified type [R07.9] Hospital course: Yoli Peoples Harmony Isidro is a 68 y.o. male for primary hypertension, atrial fibrillation on sotalol status post watchman not on anticoagulation, sinus node dysfunction status post dual-chamber permanent pacemaker, coronary artery disease status post cardiac catheterization 08/2023, POTS who presented to [facility] ED with ongoing chest pain that has been worsening over the last year, he was seen in our cardiology clinic as outpatient and was sent to emergency department for concern of unstable angina. He reported that his chest pain is episodic, worse with exertion, relieved with nitroglycerin, he has been compliant with his medications including aspirin and Lipitor. His initial troponin was negative, repeat troponin remained negative. EKG with nonspecific T wave abnormality. Lexiscan stress done on 04/10 and read as: Negative perfusion stress test for ischemia, Normal myocardial perfusion with soft tissue artifact, Normal global left ventricular function with EF 53, Transient ischemia dilatation of the left ventricle is seen that is associated with severe multi-vessel coronary artery disease, volume overload or hypertensive heart disease, TID index score is 1.24 and Negative Lexiscan ECG stress test for ischemia. Imdur added to his regimen and will be discharged today and to F/U with cardiology and PCP in 1 week. Surgical, Invasive or Diagnostic Procedures Done During Admission: Lexiscan stress test Consultations During Admission: Cardiology Dear Dr. Fatuma MD, [place] is advised to follow up with you within 1-2 weeks. Items to follow up in ambulatory setting: None Follow-up with: Cardiology Scheduled appointments: No future appointments. Your medication list START taking these medications Instructions Last Dose Given Next Dose Due isosorbide mononitrate ER 30 mg 24 hr tablet Commonly known as: Imdur Take 1 tablet (30 mg) by mouth in the morning. Do not crush or chew. CHANGE how you take these medications Instructions Last Dose Given Next Dose Due sotalol 120 mg tablet Commonly known as: Betapace What changed: Another medication with the same name was removed. Continue taking this medication, and follow the directions you see here. Take 1 tablet (120 mg) by mouth every 12 (twelve) hours. CONTINUE taking these medications Instructions Last Dose Given Next Dose Due aspirin 81 mg chewable tablet Chew 1 tablet (81 mg) in the morning. Do not start before March 08, 2022. atorvastatin 40 mg tablet Commonly known as: Lipitor Take 1 tablet (40 mg) by mouth at bedtime. calcium 500 mg calcium (1,250 mg) tablet levothyroxine 150 mcg tablet Commonly known as: Synthroid, Levoxyl midodrine 5 mg tablet Commonly known as: Proamatine Take 1 tablet (5 mg) by mouth three times daily. Where to Get Your Medications These medications were sent to [id number] - [place], [place] [address] [place] [address], [facility] [address] isosorbide mononitrate ER 30 mg 24 hr tablet Yoli is allergic to penicillins, tikosyn [dofetilide], and vancomycin. Disposition: Home or Self Care () Discharge Condition: Stable Code Status: Full Code Diagnostic Results Hematology: Results from last 7 days Lab Units 04/08/24 1545 04/08/24 1532 WBC AUTO 10*3/uL -- 6.74 HEMOGLOBIN g/dL -- 13.9 HEMATOCRIT % -- 42.7 MCV fL -- 86.3 PLATELETS AUTO 10*3/uL -- 215 INR 1.03 -- Chemistry: Results from last 7 days Lab Units 04/10/24 0429 04/09/24 0621 04/08/24 1532 SODIUM mmol/L 140 141 140 POTASSIUM mmol/L 4.2 4.1 4.0 CHLORIDE mmol/L 106 108* 107 CO2 mmol/L 26 25 24 BUN mg/dL 25 27* 29* CREATININE mg/dL 1.41* 1.34* 1.60* GLUCOSE mg/dL 85 86 85 CALCIUM mg/dL 7.7* 7.6* 8.3* Test Results Pending At Discharge: Diet at the time of discharge: regular diet and cardiac diet Activity: Normal activity as tolerated Objective Blood pressure 105/78, pulse 78, temperature 36.6 ???C (97.9 ???F), temperature source Temporal, resp. rate 14, height 1.981 m (6' 6 ), weight 113 kg (250 lb), SpO2 94%. General: Alert and oriented x3. Cardiology: Normal rate, regular rhythm. Lungs: Clear to auscultation, no wheezes, rales or rhonchi, symmetric air entry. Abdomen: (more content not included)... [facility] 04-10-2024 Note Attestation signed by Erika Mesa MD at 05/23/2024 1:19 PM I personally saw and examined the patient on the same date of service as the resident/fellow. I discussed the findings and therapeutic plan with the resident/fellow. Plan of care was discussed with patient, and patient is agreeable with plan. I agree with the documentation, except for any edits/updates below. Teaching Physician's Revisions: none Erika Mesa MD [facility] Cardiology Progress Note Subjective Subjective: Patient was seen and examined. Reported ongoing episodes of chest pain, no shortness of breath. No abdominal pain, nausea, or vomiting. No orthopnea or paroxysmal nocturnal dyspnea. No lower leg swelling. No acute events overnight. Objective Current Facility-Administered Medications: acetaminophen (Tylenol) tablet 650 mg, 650 mg, oral, q6h PRN, Lindy Hayes NP, 650 mg at 04/09/24 0011 aspirin chewable tablet 81 mg, 81 mg, oral, Daily, Eddi Hutchinson MD, 81 mg at 04/10/24 1042 atorvastatin (Lipitor) tablet 40 mg, 40 mg, oral, Nightly, Lindy Hayes NP calcium tablet 500 mg, 500 mg, oral, Daily, Lindy Hayes NP, 500 mg at 04/10/24 1043 heparin (porcine) injection 5,000 Units, 5,000 Units, subcutaneous, q12h CATHY, Lindy Hayes NP kit prep Tc 99m-sestamibi no.1 (Cardiolite) radio-isotope injection 10 millicurie, 10 millicurie, intravenous, Once in imaging, Eddi Hutchinson MD, 10 millicurie at 04/10/24 0746 kit prep Tc 99m-sestamibi no.1 (Cardiolite) radio-isotope injection 30 millicurie, 30 millicurie, intravenous, Once in imaging, Eddi Hutchinson MD, 30 millicurie at 04/10/24 0935 levothyroxine (Synthroid, Levoxyl) tablet 150 mcg, 150 mcg, oral, Daily before breakfast, Lindy Hayes NP, 150 mcg at 04/10/24 0607 melatonin tablet 5 mg, 5 mg, oral, Nightly PRN, Lindy Hayes NP midodrine (Proamatine) tablet 5 mg, 5 mg, oral, TID, Lindy Hayes, RAHUL, 5 mg at 04/10/24 1043 nitroglycerin (Nitrostat) SL tablet 0.4 mg, 0.4 mg, sublingual, q5 min PRN, Lindy Hayes NP sennosides-docusate sodium (Christen-Colace) 8.6-50 mg per tablet 1 tablet, 1 tablet, oral, Daily PRN, Lindy Hayes NP sotalol (Betapace) tablet 120 mg, 120 mg, oral, q12h CATHY, Carlitos Alvares MD, 120 mg at 04/10/24 1043 trimethobenzamide (Tigan) injection 200 mg, 200 mg, intramuscular, q6h PRN, Lindy Hayes NP Objective: Patient Vitals for the past 24 hrs: BP Temp Temp src Pulse Resp SpO2 Weight 04/10/24 0827 105/78 36.6 ???C (97.9 ???F) [facility] 78 14 94 % -- 04/10/24 0500 -- -- -- -- -- -- 113 kg (250 lb) 04/10/24 0420 97/74 36.6 ???C (97.9 ???F) Temporal 81 13 -- -- 04/10/24 0015 109/87 36.8 ???C (98.2 ???F) Temporal 81 19 -- -- 04/09/24 1542 90/66 37.3 ???C (99.1 ???F) [facility] 81 17 96 % -- Physical Examination: Physical Exam Constitutional: General: He is not in acute distress. Appearance: He is not ill-appearing. HENT: Head: Normocephalic and atraumatic. Cardiovascular: Rate and Rhythm: Normal rate and regular rhythm. Heart sounds: Normal heart sounds. No murmur heard. Pulmonary: Effort: No respiratory distress. Breath sounds: Normal breath sounds. No wheezing or rales. Abdominal: Palpations: Abdomen is soft. Tenderness: There is no abdominal tenderness. Musculoskeletal: Cervical back: Normal range of motion and neck supple. Right lower leg: No edema. Left lower leg: No edema. Skin: General: Skin is warm and dry. Capillary Refill: Capillary refill takes less than 2 seconds. Neurological: Mental Status: He is alert and oriented to person, place, and time. Mental status is at baseline. Relevant Lab Results Encounter Date: 04/08/24 ECG 12 lead Result Value Ventricular Rate 79 Atrial Rate 79 HI Interval 246 QRS DURATION 76 QT Interval 384 QTC CALCULATION(BAZETT) 440 R-Patillas 61 T Wave [place] 224 Impression Atrial-paced rhythm with prolonged AV conduction T wave abnormality, consider lateral ischemia Abnormal ECG When compared with ECG of 09-APR-2024 12:52, Questionable change in QRS axis Nonspecific T wave abnormality now evident in Inferior lead Inverted T waves have replaced nonspecific T wave abnormality in Lateral QT has shortened Lab Results Component Value Date CKTOTAL 278 (H) 08/29/2020 TROPONINI 0.00 04/09/2024 Complete Echo (TTE) w/wo Imaging Agent, Strain, 3D, Bubble Study Result Date: 04/09/2024 1 1 [facility] Heart Station [address] [place] [address] [phone] (fax) Echocardiogram-[facility] Name: YOLI ANTUNEZ Study Date: 04/09/2024 11:49 AM B/P: 123 mmHg/92 mmHg HR: Date of : 1955 Location: [facility] Height: 78 in. Age: 68 year(s) Patient Room: [facility] Weight: 248 lb. Gender: Male Patient Status (more content not included)... [facility] 04-09-2024 Note Hospital Medicine Daily Progress Note - 04/09/2024 11:51 AM; Room: [facility]- Admission: 04/08/2024 3:17 PM; Length of stay: 0 days THE HOSPITALIST TEAM PREFERS TO USE [email or web address] FOR NON-URGENT COMMUNICATION 7AM-7PM. IF I DO NOT RESPOND WITHIN 20 MINUTES OR URGENT MATTERS, PLEASE CALL THROUGH THE [facility]. FROM 7PM-7AM, PLEASE PAGE [phone](COVR). Code Status: Full Code Barriers to Discharge: cardiac workup Expected Discharge Date: 1-2 days Discharge Destination: home Overview Patient is seen for evaluation and management of chest pain Subjective patient seen today in his room, still having intermittent chest pain. In no acute distress Physical Exam Constitutional: General: He is not in acute distress. Appearance: Normal appearance. HENT: Head: Normocephalic. Nose: Nose normal. Eyes: Extraocular Movements: Extraocular movements intact. Conjunctiva/sclera: Conjunctivae normal. Cardiovascular: Rate and Rhythm: Rhythm irregular. Pulmonary: Effort: Pulmonary effort is normal. Breath sounds: Normal breath sounds. No wheezing or rhonchi. Abdominal: General: Bowel sounds are normal. Palpations: Abdomen is soft. Musculoskeletal: Cervical back: Normal range of motion and neck supple. Right lower leg: No edema. Left lower leg: No edema. Skin: General: Skin is warm and dry. Neurological: General: No focal deficit present. Visit Vitals BP (!) 123/92 (BP Location: Right arm, Patient Position: Lying) Pulse 86 Temp 36.6 ???C (97.9 ???F) (Temporal) Resp 15 Intake/Output Summary (Last 24 hours) at 04/09/2024 1151 Last data filed at 04/09/2024 0900 Gross per 24 hour Intake 1960 ml Output 750 ml Net 1210 ml Estimated body mass index is 28.75 kg/m??? as calculated from the following: Height as of this encounter: 1.981 m (6' 6 ). Weight as of this encounter: 113 kg (248 lb 12.8 oz). Active Inpatient Problems Principal Problem: Chest pain Active Problems: EMELIA (acute kidney injury) ([facility]) Abnormal ECG Assessment and Plan chest pain, concern for unstable angina/ history of remote coronary artery disease troponin so far negative and EKG showed paced rhythm transthoracic echo pending continue aspirin Lipitor Patient had cardiac cath on 08/30/2023 and read as : Moderate to severe disease of a small second diagonal branch of the left anterior descending coronary artery Mild disease of the left anterior descending coronary artery Subtotally occluded mid to distal, small posterolateral branch of the right coronary artery Normal global left ventricular systolic function by noninvasive imaging appreciate cardiology input 2. syncope and near syncope/bradycardia Status post permanent dual-chamber pacemaker/ 3. atrial fibrillation. status post Watchman device patient not on anticoagulation currently continue rhythm control with sotalol and rate control with Lopressor 3. history of chronic orthostatic hypotension/POTS continue midodrine for now and monitor 4. hypothyroidism, continue Synthroid 5. hyperlipidemia continue Lipitor 6. history of TIA 7. history of pancreatitis and gallstones 8. history of carpal tunnel syndrome bilateral 9. chronic kidney disease stage III VTE Prophylaxis: Heparin subcutaneous Scheduled Meds aspirin, 81 mg, oral, Daily atorvastatin, 40 mg, oral, Nightly calcium, 500 mg, oral, Daily heparin (porcine), 5,000 Units, subcutaneous, q12h CATHY iohexol, 100 mL, intravenous, Once in imaging levothyroxine, 150 mcg, oral, Daily before breakfast midodrine, 5 mg, oral, TID sotalol, 120 mg, oral, q12h CATHY Pertinent Investigations Hematology: Results from last 7 days Lab Units 04/08/24 1545 04/08/24 1532 WBC AUTO 10*3/uL -- 6.74 HEMOGLOBIN g/dL -- 13.9 HEMATOCRIT % -- 42.7 MCV fL -- 86.3 PLATELETS AUTO 10*3/uL -- 215 INR 1.03 -- Chemistry: Results from last 7 days Lab Units 04/09/24 0621 04/08/24 1532 SODIUM mmol/L 141 140 POTASSIUM mmol/L 4.1 4.0 CHLORIDE mmol/L 108* 107 CO2 mmol/L 25 24 BUN mg/dL 27* 29* CREATININE mg/dL 1.34* 1.60* GLUCOSE mg/dL 86 85 CALCIUM mg/dL 7.6* 8.3* No lab exists for component: AFIO2 , APHT , APCOT , APOT , ATCO2 , CK , ALB , IBILI Historical Values: (Includes values prior to this admission) Lab Results Component Value Date TSH 1.63 01/28/2024 FREET4 1.12 11/06/2019 HDL 32 11/05/2019 LDL 77 11/05/2019 LDL 144 11/05/2019 No results found for: [id number] , IRON , TIBC , C3 , C4 , KYLE , CANCA , ASO , PSA , CEA , CA125 , CA199 , AFP , CA153 Imaging ECG 12 lead (Now) Atrial-paced rhythm with prolonged AV conduction Nonspecific T wave abnormality Prolonged QT Abnormal ECG Confirmed by Woo PALMER, SHAYE Carpenter ([id number]) on 04/09/2024 9:57:59 AM Discharge Planning Expected Discharge Disposition: Home or Self Care (01) Signed Eddi Hutchinson MD [facility] Medicine 04/09/2024 11:51 AM [facility] 04-08-2024 Note Hospital Medicine History and Physical 04/09/2024 2:39 AM THE HOSPITALIST TEAM PREFERS TO USE [email or web address] FOR NON-URGENT COMMUNICATION 7AM-7PM. IF I DO NOT RESPOND WITHIN 20 MINUTES OR URGENT MATTERS, PLEASE CALL THROUGH THE [facility] POPPER. FROM 7PM-7AM, PLEASE PAGE [phone](COVR). Chief Complaint Chief Complaint Patient presents with Chest Pain Shortness of Breath History of Present Illness Yoli Antunez Jr. is an 68 y.o. 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 Patient presented to [facility] ED with c/o chest pain. Patient reports having chest pain intermittently for years that is relieved by nitroglycerin sublingual tablets at home however recently he feels like his chest pain has increased in frequency and most recently feels as though someone is sitting on his chest and currently rates at 5/10 and at its highest 9/10. Patient also endorses shortness of breath and lightheadedness at times. He reports he saw his bobbin inspector today who performed an EKG which showed acute lead inversions prompting bobbin inspector to send him into the ED. Patient denies history of heart attack, DVT, PE, or CHF. Patient reports only taking daily aspirin occasionally and denies any other blood thinner use. He does endorse history of high blood pressure but recently reports blood pressure has been running low. Patient has remote history of smoking and denies any active/current smoking/tobacco use. ED workup shows ECG that is a paced rhythm with prolonged AV conduction, nonspecific T wave abnormality, prolonged QT. XR chest was negative for any evidence of pulmonary infiltrates, acute pulmonary pathology or significant interval changes. CTA chest with IV contrast also negative for any acute cardiopulmonary findings; mildly prominent ascending aorta measuring 4.3 cm. Very workup significant for mild EMELIA, patient does endorse history of CKD. BUN and creatinine mildly elevated from baseline values. Troponin and D-dimer negative. Repeat troponin also negative. BNP unremarkable 66. Patient admitted to MD with cardiology consult for further evaluation and treatment of chest pain with abnormal ECG. Review of System and Physical Exam Temp: [36.3 ???C (97.4 ???F)-36.4 ???C (97.5 ???F)] 36.4 ???C (97.5 ???F) Heart Rate: [74-84] 74 Resp: [11-18] 12 BP: (98-132)/(64-90) 118/76 Physical Exam Vitals and nursing note reviewed. Constitutional: General: He is not in acute distress. Appearance: Normal appearance. He is not ill-appearing, toxic-appearing or diaphoretic. HENT: Head: Normocephalic. Nose: Nose normal. Eyes: Extraocular Movements: Extraocular movements intact. Conjunctiva/sclera: Conjunctivae normal. Cardiovascular: Rate and Rhythm: Tachycardia present. Rhythm irregular. Pulses: Normal pulses. Pulmonary: Effort: Pulmonary effort is normal. Breath sounds: Normal breath sounds. No wheezing or rhonchi. Abdominal: General: Bowel sounds are normal. Palpations: Abdomen is soft. Musculoskeletal: Cervical back: Normal range of motion and [...] Content: Thought content normal. Judgment: Judgment normal. Review of Systems Constitutional: Positive for activity change. HENT: Negative. Eyes: Negative. Respiratory: Positive for shortness of breath. Cardiovascular: Positive for chest pain. Negative for leg swelling. Gastrointestinal: Negative. Endocrine: Negative. Genitourinary: Negative. Musculoskeletal: Negative. Allergic/Immunologic: Negative. Neurological: Positive for light-headedness. Hematological: Negative. Psychiatric/Behavioral: Negative. Problem List Principal Problem: Chest pain Active Problems: EMELIA (acute kidney injury) (CMS/HCC) Abnormal ECG Assessment and Plan Chest pain Abnormal ECG -Intermittent chest pain, increasing in frequency with intermittent shortness of breath and lightheadedness. - ECG with atrial paced rhythm with prolonged AV conduction, nonspecific T wave abnormalities, prolonged QT - Initial troponin negative, repeat troponin negative - D-dimer negative/unremarkable -CTA chest negative for any acute cardiopulmonary findings. Mildly prominent ascending aorta measuring 4.3 cm. (Previously noted to be 4.2 cm on CTA chest 07/06/2021). - CBC, BNP and PT, PT/INR, APTT (more content not included)... [facility] 04-08-2024 Note SYNCOPE AND AUTONOMI C DISORDERS CLINIC Reason for Consultation: Acute chest pain HPI: Yoli Antunez Jr. is a 68 y.o. year old with past medical history of syncope and near syncope, bradycardia and dual-chamber pacemaker. He also has a history of prior coronary artery disease. He developed acute chest discomfort which has been worsening over the last several days. He describes this is being very much like the angina he experienced in the past being heavy in nature. On physical exam in the office his lungs are clear to auscultation and his heart sounds are regular and rhythmic S1 and S2 are within normal limits there is no S3 or S4 gallop noted. I personally analyzed his pacemaker in clinic. There were good sensing and pacing thresholds good lead impedances and no recorded arrhythmias. Documentation of my analysis of his pacemaker can be found at the bottom of this note. I did an EKG while in clinic and it showed ST segment depressions in the lateral leads that were not present on a previous study. At this point I concluded that he is suffering from unstable angina and have sent him to the [facility] emergency room for further evaluation. I called the emergency room physician and spoke with them personally and also called the exhauster on the inPatient's service and spoke with him as well. PMH: Past Medical History: Diagnosis Date Arrhythmia [...] MR HEAD ANGIO WO IV CONTRAST 07/09/2022 [facility] MR IMAGING MR NECK ANGIO WO IV CONTRAST 07/09/2022 MR NECK ANGIO WO IV CONTRAST 07/09/2022 [facility] MR IMAGING NECK SURGERY THYROIDECTOMY SH: Social Determinants of Health Tobacco Use: Medium Risk (04/08/2024) Patient History Smoking Tobacco Use: Former Smokeless Tobacco Use: Former Passive Exposure: Not on file Alcohol Use: Not At Risk (12/17/2023) Received from [facility] Frequency of Alcohol Consumption: Monthly or less Average Number of Drinks: 1 or 2 Frequency of Binge Drinking: Never Financial Resource Strain: Low Risk (01/27/2024) Overall Financial Resource Strain (CARDIA) Difficulty of Paying Living Expenses: Not hard at all Food Insecurity: No Food Insecurity (01/27/2024) Hunger Vital Sign Worried About Running Out of Food in the Last Year: Never true Ran Out of Food in the Last Year: Not on file Transportation Needs: No Transportation Needs (01/27/2024) Transportation Lack of Transportation (Medical): No Lack of Transportation (Non-Medical): Not on file Physical Activity: Sufficiently Active (12/17/2023) Received from [facility] Exercise Vital Sign Days of Exercise per Week: 7 days Minutes of Exercise per Session: 30 min Stress: Patient Declined (12/17/2023) Received from [facility] - Occupational Stress Questionnaire Feeling of Stress : Patient declined Social Connections: Moderately Isolated (12/17/2023) Received from [facility] Social Connection and Isolation Panel [NHANES] Frequency of Communication with Friends and Family: More than three times a week Frequency of Social Gatherings with Friends and Family: More than three times a week Attends Temple Services: Never Active Member of Clubs or Organizations: No Attends Club or Organization Meetings: Never Marital Status: Intimate Partner Violence: Not At Risk (01/27/2024) Humiliation, Afraid, Rape, and Kick questionnaire Fear of Current or Ex-Partner: No Emotionally Abused: No Physically Abused: No Sexually Abused: No Depression: Not at risk (02/06/2024) Received from [facility] PHQ-2 Patient Health Questionnaire-2 Score: 0 Housing Stability: Low Risk (01/27/2024) Housing Stability Vital Sign Unable to Pay for Housing in the Last Year: Not on file Number of Places Lived in the Last Year: Not on file Unstable Housing in the Last Year: No Utilities: Not At Risk (01/27/2024) [facility] [place] Utilities Threatened with loss of utilities: No Health Literacy: Adequate Health Literacy (12/17/2023) Received from [facility] B1300 Health Literacy Frequency of need for help with medical instructions: Never Meds: No current facility-administered medications on file prior to visit. (more content not included)... [facility] 03-11-2024 Note SYNCOPE AND AUTONOMI C DISORDERS CLINIC Reason for Consultation: Lightheadedness, dizziness, near syncope HPI: Yoli Antunez Jr. is a 68 y.o. year old with past medical history of sick sinus syndrome, atrial fibrillation, and near syncope and syncope, and has a permanent pacemaker in place. Recently his sotalol dose was increased to 120 mg and at the same time he discontinued taking Prozac. Since then he has been quite symptomatic and extremely fatigued and lightheaded. His blood pressure is the lowest I have seen at 98/60 mg. I think the combination of the increase in sotalol and the elimination of Prozac has lowered his pressure significantly and making him more symptomatic. In addition his pacemaker was only programmed at 55 pulses per minute as per his request. I personally analyzed the device in clinic today and it showed it was working well with good sensing and pacing thresholds as well as adequate battery life and no new episodes of atrial fibrillation. I reprogrammed the the base pacing rate to 70 pulses per minute. At the same time I am going to place him on midodrine 5 mg orally 3 times daily. I alsoHe said that he could take a dose as needed if he requires it. I spent more than 45 minutes in [id number] patient counseling and therapeutic decision making with both the patient and his during which time we discussed orthostatic hypotension, the risk of falls and syncope secondary to this, and the change in pacemaker programming settings. We also discussed the pathophysiology of orthostatic hypotension and prognosis as well as potential future therapeutic modalities should the midodrine prove ineffective. 2 of these could be the addition of droxidopa or alternatively starting him on bupropion. Documentation of my personal download of his pacemaker device can be found in the chart review section under the tab media. PMH: Past Medical History: Diagnosis Date Arrhythmia [...] MR HEAD ANGIO WO IV CONTRAST 07/09/2022 [facility] MR IMAGING MR NECK ANGIO WO IV CONTRAST 07/09/2022 MR NECK ANGIO WO IV CONTRAST 07/09/2022 [facility] MR IMAGING NECK SURGERY THYROIDECTOMY SH: Social Determinants of Health Tobacco Use: Medium Risk (02/06/2024) Received from [facility] Patient History Smoking Tobacco Use: Former Smokeless Tobacco Use: Never Passive Exposure: Not on file Alcohol Use: Not At Risk (12/17/2023) Received from [facility] Frequency of Alcohol Consumption: Monthly or less Average Number of Drinks: 1 or 2 Frequency of Binge Drinking: Never Financial Resource Strain: Low Risk (01/27/2024) Overall Financial Resource Strain (CARDIA) Difficulty of Paying Living Expenses: Not hard at all Food Insecurity: No Food Insecurity (01/27/2024) Hunger Vital Sign Worried About Running Out of Food in the Last Year: Never true Ran Out of Food in the Last Year: Not on file Transportation Needs: No Transportation Needs (01/27/2024) Transportation Lack of Transportation (Medical): No Lack of Transportation (Non-Medical): Not on file Physical Activity: Sufficiently Active (12/17/2023) Received from [facility] Exercise Vital Sign Days of Exercise per Week: 7 days Minutes of Exercise per Session: 30 min Stress: Patient Declined (12/17/2023) Received from [facility] - Occupational Stress Questionnaire Feeling of Stress : Patient declined Social Connections: Moderately Isolated (12/17/2023) Received from [facility] Social Connection and Isolation Panel [NHANES] Frequency of Communication with Friends and Family: More than three times a week Frequency of Social Gatherings with Friends and Family: More than three times a week Attends Temple Services: Never Active Member of Clubs or Organizations: No Attends Club or Organization Meetings: Never Marital Status: Intimate Partner Violence: Not At Risk (01/27/2024) Humiliation, Afraid, Rape, and Kick questionnaire Fear of Current or Ex-Partner: No Emotionally Abused: No Physically Abused: No Sexually Abused: No Depression: Not at risk (02/06/2024) Received from [facility] PHQ-2 Patient Health Questionnaire-2 Score: [address] (more content not included)... [facility] 02-26-2024 Note SYNCOPE AND AUTONOMI C DISORDERS CLINIC Reason for Consultation: Follow-up of new onset atrial fibrillation HPI: Yoli Peoples Harmony Isidro is a 68 y.o. year old with past medical history of bradycardia, heart block and atrial fibrillation. The patient has a dual-chamber pacemaker in place. He was in the not too distant past was found to have atrial fibrillation and was placed on oral sotalol therapy. He was placed on sotalol at 80 milligrams orally ice daily. Not long ago he was lifting boxes at work and became very lightheaded and dizzy and noted his heart was racing and irregular. I personally analyzed his pacemaker in clinic today. My analysis demonstrated the fact that had normal sensing and pacing thresholds and good battery life. He paces 72% of the time. Also coinciding with his events the memory of the pacemaker demonstrates periods of atrial fibrillationThat occurred during the time he was experiencing lightheadedness. Documentation of my personal analysis of his pacemaker can be found under the chart review section under the tab Media. I am going to increase his sotalol dose to 120 mg orally twice daily. I told him to contact us of any untoward effects occurred. I spent over 45 minutes in [id number] counseling and therapeutic decision making during which time we discussed atrial fibrillation, its effect on his lightheadedness and episodes, and the rationale for increasing his dose of sotalol. It should be noted that he has trouble taking anticoagulants and currently has a Watchman device in place. PMH: Past Medical History: Diagnosis Date Arrhythmia [...] MR HEAD ANGIO WO IV CONTRAST 07/09/2022 [facility] MR IMAGING MR NECK ANGIO WO IV CONTRAST 07/09/2022 MR NECK ANGIO WO IV CONTRAST 07/09/2022 [facility] MR IMAGING NECK SURGERY THYROIDECTOMY SH: Social Determinants of Health Tobacco Use: Medium Risk (02/04/2024) Patient History Smoking Tobacco Use: Former Smokeless Tobacco Use: Former Passive Exposure: Not on file Alcohol Use: Not on file Financial Resource Strain: Low Risk (01/27/2024) Overall Financial Resource Strain (CARDIA) Difficulty of Paying Living Expenses: Not hard at all Food Insecurity: No Food Insecurity (01/27/2024) Hunger Vital Sign Worried About Running Out of Food in the Last Year: Never true Ran Out of Food in the Last Year: Not on file Transportation Needs: No Transportation Needs (01/27/2024) Transportation Lack of Transportation (Medical): No Lack of Transportation (Non-Medical): Not on file Physical Activity: Not on file Stress: Not on file Social Connections: Not on file Intimate Partner Violence: Not At Risk (01/27/2024) Humiliation, Afraid, Rape, and Kick questionnaire Fear of Current or Ex-Partner: No Emotionally Abused: No Physically Abused: No Sexually Abused: No Depression: Not at risk (06/17/2023) PHQ-2 PHQ-2 Score: 0 Housing Stability: Low Risk (01/27/2024) Housing Stability Vital Sign Unable to Pay for Housing in the Last Year: Not on file Number of Places Lived in the Last Year: Not on file Unstable Housing in the Last Year: No Utilities: Not At Risk (01/27/2024) [facility] [place] Utilities Threatened with loss of utilities: No Meds: Current Outpatient Medications on File Prior to Visit Medication Sig Dispense Refill aspirin 81 mg chewable tablet Chew 1 tablet (81 mg) in the morning. Do not start before March 08, 2022. 30 tablet 3 atorvastatin (Lipitor) 40 mg tablet Take 1 tablet (40 mg) by mouth at bedtime. 30 tablet 0 calcium 500 mg calcium (1,250 mg) tablet Take 1 tablet by mouth in the morning. FLUoxetine (PROzac) 20 mg capsule Take 20 mg by mouth in the morning. levothyroxine (Synthroid, Levoxyl) 150 mcg tablet Take 150 mcg by mouth before breakfast. sotalol (Betapace) 80 mg tablet Take 1 tablet (80 mg) by mouth every 12 (twelve) hours. 60 tablet 0 No current facility-administered medications on file prior to visit. ROS: Cardio Basic Cardiovascular Symptoms: lightheadedness, no leg edema, no syncope, no orthopnea, no PND, no claudication, Constitutional Constitutional: no fever, no night sweats, no significant weight gain, no significant weight loss, no exercise intolerance Eyes Eyes: no dry eyes, no irritation, no vision change ENMT Ears: no difficulty hearing, no ear pain Nose: no frequent (more content not included)... [facility] 02-10-2024 Telephone encounter Note Jamil was in last week for rash - was told if not better to call the office . It isnt any better -asking if something else can be called in [employer] [facility] 02-10-2024 Miscellaneous Notes Jamil was in last week for rash - was told if not better to call the office . It isnt any better -asking if something else can be called in [employer] documented in this encounter [facility] 02-06-2024 History of Present illness Narrative Associated Problem(s): Paroxysmal atrial fibrillation (CMS/HCC) Now back in sinus. Images from the original note were not included. Patient: Yoli Antunez : 1955 PCP: Radha Burris MD Yoli Antunez is a 68 y.o. male presenting today for follow-up after being discharged from the hospital 7 days ago. The main problem requiring admission was chest pain. The discharge summary and/or Transitional Care Management documentation was reviewed. Medication reconciliation was performed as indicated via the [place] as Reviewed timestamp. Yoli Antunez was contacted by Transitional Care Management services two days after his discharge. This encounter and supporting documentation was reviewed. The complexity of medical decision making for this patient's transitional care is moderate. Yoli Antunez is a 68 y.o. male presents with chief complaint of Follow-up (Rash on both legs the past couple months. Rash has stayed the same. [facility] on 01/29 patient went in for chest pain due to afib but chest pain has stopped since then. ) HPI: HPI History of Present Illness The patient presents for evaluation of multiple medical concerns. He experienced chest pain, initially thought to be a recurrence of atrial fibrillation (AFib). However, his bobbin inspector confirmed that he is no longer in AFib and suggested that the symptoms might be psychiatric in nature, recommending nerve medication. He has previously tried Zoloft for anxiety without success. He has not experienced any chest pain since returning home but finds relief from nitroglycerin and sitting down when it occurs. He has reported this to cardiology who again is recommending psychiatric treatment. He continues to experience gastrointestinal issues and has been unable to secure a referral for further treatment. Three referrals were sent to the [facility], but they claim to have lost the first two and require additional information for the third. He has been dealing with itchy skin on both legs, which often wakes him up at night due to intense scratching. Steroids provided temporary relief, but the itching returned after discontinuing the medication. The itching is more severe at night, and he initially thought it was due to night sweats. He has been using calamine lotion to alleviate the itching, but even regular lotion seems to help. The itching subsides during the day but returns at night. He has noticed that the affected area sometimes appears bruised when it's not red and turns a darker color once the irritation and itching subside. He has not received a pneumonia vaccine and does not wish to do so. He recalls coming into contact with poison margarita around the time the itching started but only experienced symptoms on his arms, which have since cleared up. SUBJECTIVE: MEDICATIONS: Current Outpatient Medications Medication Instructions calcium carbonate (Os-Atilio) 1250 (500 Ca) MG chewable tablet 1 tablet, Daily RT FLUoxetine (PROZAC) 20 mg, Oral, Daily levothyroxine (SYNTHROID) 150 mcg, Oral, Daily before breakfast mometasone (Elocon) 0.1 % ointment Topical, Daily nitroglycerin (NITROSTAT) 0.4 mg sotalol (BETAPACE) 80 mg, 2 times daily I have reviewed and reconciled the history and medication list with the patient today. REVIEW OF SYMPTOMS: Review of Systems OBJECTIVE: Visit Vitals BP 110/70 Pulse 74 Ht 6' 6 Wt 237 lb 6.4 oz SpO2 97% BMI 27.43 kg/m Smoking Status Former BSA 2.44 m Physical Exam Vitals and nursing note reviewed. Constitutional: Appearance: Normal appearance. Cardiovascular: Rate and Rhythm: Normal rate and regular rhythm. Pulses: Normal pulses. Heart sounds: Normal heart sounds. Skin: Comments: Scaly rash located around knees bilaterally. Scaly, red. Neurological: Mental Status: He is alert. ASSESSMENT AND PLAN: Assessment & Plan 1. Anxiety. The bobbin inspector confirmed that the recent chest pain was due to atrial fibrillation, which has since resolved. He suggested that any future symptoms might be psychiatric in nature. Prozac will be initiated at the lowest dose to manage his anxiety. Prozac is chosen due to its minimal gastrointestinal side effects and lack of significant cardiac interactions. If this medication does not provide relief, other options will be considered. 2. Pruritus. He reports severe itching, particularly at night, which has not improved with previous treatments including antifungals and oral steroids. A topical steroid cream will be prescribed for a few days to alleviate the itching. If there is no improvement, a scabies treatment will be considered to ensure all potential causes are addressed. 3. Referral Management. There have been issues with the referral to the [facility] for his gastrointestinal problems, with multiple attempts to send the referral being unsuccessful. The team will call the [facility] today to ensure all necessary information is provided and expedite the referral process. Assessment/Plan Problem List Items Addressed This Visit Anxiety - Primary Relevant Medications FLUoxetine (PROzac) 20 MG capsule Paroxysmal atrial fibrillation (CMS/HCC) Now back in sinus. 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 Discussed in detail with him today. Other Visit Diagnoses Dermatitis Relevant Medications mometasone (Elocon) 0.1 % ointment Family History Problem Relation Name Age of Onset Lung cancer Mother Hypertension Mother Stroke Mother Aneurysm Father Lung cancer Father Hypertension Father No Known Problems Brother Flowsheet Row Patient Outreach from 10/14/2023 in [facility] with Radha Taylor RN Hospital Information ED, Hospital or Intermediate Facility Discharge? ED Patient has been contacted within 1 week of being seen in the ED No Have two attempts been made to contact the patient within one week of being seen in the ED? No Discharge Date 10/05/23 Discharged To: Home Setting Discharge Hospital [facility] Engagement Call Start Time 1200 Medications Discharge medications reviewed and reconciled from hospital? Yes Is the patient having any side effects they believe may be caused by any medication additions or changes? No Does the patient have all medications ordered at discharge? Yes Nursing Interventions Nurse provided patient education Is the patient taking all medications as directed (includes completed medication regime)? Yes Nursing Interventions Nurse provided patient education Appointments Does the patient have a primary care provider? Yes [declines appt with PCP at this time. has been in contact with cardiology] Self Management Patient Teaching Wrap Up Wrap Up Additional Comments Pt to [facility] 10/05/23. He presented with left index finger infection - he drilled a screw into finger. He was eval, treated and dc to home. DX: Cellulitis and Chest pain. New prescription given: Doxycycline. Call End Time 1206 No follow-ups on file. documented in this encounter [facility] 02-04-2024 Note [place] Electrophysiology Consult Note [place] Cardiology - [facility] Reason for visit: Atrial fibrillation 02/04/24 Patient recently discharged from the hospital for chief complaint of chest pain and plan for cardiac cath. He was discharged home on sotalol 80 mg BID and has been tolerating well. He complains of being in atrial fibrillation on and off since discharge home. He describes experiencing palpitations, fatigue, and chest pain. He states he was just in flutter and it terminated. I performed device check which has revealed no AF / flutter and last AF was on 01/28/24. Prior HPI: Yoli Antunez Jr. is a 68 y.o. year old with past medical history of dual-chamber pacemaker with explant of his loop on 07/09/2023 for what was believed to be sinus node dysfunction and associated chest pain. He has continued to experience the same despite this. He has a history of having previously undergone CTI flutter ablation by Dr. Vilchis on 12/08/2019 and thereafter had A-fib ablation by Peter Grey in [place] with PVI plus posterior box isolation was performed with a repeat ablation by her again. Due to the recurrence he presented to me for repeat PVI which was performed on 08/25/2020. At the PVI plus posterior box isolation for reconnection in all the veins. He also had an attempted left fifth left digit closure by Dr. TINSLEY but due to laxative did state the procedure was aborted on 12/12/2021. He also underwent a loop monitor by me for further evaluation of what he described as palpitations but did not reveal any evidence of A-fib thus far. He has not revealed to endorse complaints of chest pain and since the time LOOP was implanted has never showed A-fib. During this admission he was noted to be in atrial fibrillation and was subsequently transferred here for further evaluation. Previously he had trialed sotalol and this was stopped due to concern of QT prolongation. Since his admission he has been in and out of A-fib. PMH: Past Medical History: Diagnosis Date Arrhythmia [...] MR HEAD ANGIO WO IV CONTRAST 07/09/2022 [facility] MR IMAGING MR NECK ANGIO WO IV CONTRAST 07/09/2022 MR NECK ANGIO WO IV CONTRAST 07/09/2022 [facility] MR IMAGING NECK SURGERY THYROIDECTOMY SH: Social Determinants of Health Tobacco Use: Medium Risk (02/04/2024) Patient History Smoking Tobacco Use: Former Smokeless Tobacco Use: Former Passive Exposure: Not on file Alcohol Use: Not on file Financial Resource Strain: Low Risk (01/27/2024) Overall Financial Resource Strain (CARDIA) Difficulty of Paying Living Expenses: Not hard at all Food Insecurity: No Food Insecurity (01/27/2024) Hunger Vital Sign Worried About Running Out of Food in the Last Year: Never true Ran Out of Food in the Last Year: Not on file Transportation Needs: No Transportation Needs (01/27/2024) Transportation Lack of Transportation (Medical): No Lack of Transportation (Non-Medical): Not on file Physical Activity: Not on file Stress: Not on file Social Connections: Not on file Intimate Partner Violence: Not At Risk (01/27/2024) Humiliation, Afraid, Rape, and Kick questionnaire Fear of Current or Ex-Partner: No Emotionally Abused: No Physically Abused: No Sexually Abused: No Depression: Not at risk (06/17/2023) PHQ-2 PHQ-2 Score: 0 Housing Stability: Low Risk (01/27/2024) Housing Stability Vital Sign Unable to Pay for Housing in the Last Year: Not on file Number of Places Lived in the Last Year: Not on file Unstable Housing in the Last Year: No Utilities: Not At Risk (01/27/2024) [facility] Utilities Threatened with loss of utilities: No Allergies: Allergies Allergen Reactions Penicillins Other As a child Tikosyn [Dofetilide] Other aphasia Vancomycin Itching Itching hands/feet Weight: 110kg Visit Vitals BP 118/64 (BP Location: Right arm, Patient Position: Sitting, BP Cuff Size: Adult) Pulse 67 Ht 1.981 m (6' 6 ) Wt 110 kg (242 lb 3.2 oz) SpO2 98% BMI 27.99 kg/m??? Smoking Status Former BSA 2.46 m??? Meds: Current Outpatient Medications on File Prior to Visit Medication Sig Dispense Refill aspirin 81 mg chewable tablet Chew 1 tablet (81 mg) in the morning. Do not start before March 08, 2022. 30 tablet 3 calcium 500 mg calcium (1,250 mg) tablet Take 1 tablet by mouth in the mornin (more content not included)... [facility] 01-30-2024 Note Patient provided junior copywriter y of AVS and discharge instructions. All questions and concerns addressed. Patient declined being wheeled down in wheelchair. Patient ambulated independently to front entrance without assistance. [facility] 01-30-2024 Note Hospital Medicine Discharge Summary Final Discharge Diagnosis: Atrial fibrillation with rapid ventricular response Admission Diagnosis: Chest pain [R07.9] Hospital course: Yoli Antunez Jr. is an 68 y.o. male who came from home with past medical history of A-fib s/p watchman, hypertension, hypothyroidism, CKD 3, POTS, CAD s/p PCI, SSS s/p PPM, aneurysm of ascending aorta presents as a direct admission from [facility] with a chief complaint of chest pain and plan for cardiac cath. Patient initially went to [facility] this past Saturday with intermittent chest tightness/pain with associated jaw and left arm pain. He also stated associated dizziness and diaphoresis. He was found to be in atrial fibrillation with rapid ventricular response. He was initially started on a Cardizem drip, however, this dropped the patient's blood pressure so it was stopped. Heart rate has been rate controlled around 110 bpm. During this time,patient continued to have a pressure-like chest pain. He explained that it was worse with exertion but would sometimes come when he was sitting in bed. EKG did show mild ST depression. Labs were completed showing WBC 10.5, hemoglobin 14.2, hematocrit 43.7, platelet count 212, sodium 138, potassium 3.7, chloride 105, BUN 25, creatinine 1.56, calcium 6.6. His case was discussed with our cardiology team and they would like him brought over for a left heart cath for unstable angina. 01/27: Cardiac cath cancelled due to starting sotalol for rate control. EKGs 2 hours after every dose to monitor QTc 01/28: Decrease sotalol from 120 to 80 mg BID due to prolonged QTc 01/29: Plan to discharge on sotalol and to F/U with cardiology in 1 week Surgical, Invasive or Diagnostic Procedures Done During Admission: None Consultations During Admission: Cardiology Dear Dr. Fatuma MD, Frederick is advised to follow up with you within 1-2 weeks. Items to follow up in ambulatory setting: None Follow-up with: Cardiology Scheduled appointments: Future Appointments Date Time Provider Department Center 02/26/2024 9:30 AM Shukri Vilchis MD [facility]. Your medication list START taking these medications Instructions Last Dose Given Next Dose Due atorvastatin 40 mg tablet Commonly known as: Lipitor Take 1 tablet (40 mg) by mouth at bedtime. sotalol 80 mg tablet Commonly known as: Betapace Take 1 tablet (80 mg) by mouth every 12 (twelve) hours. CONTINUE taking these medications Instructions Last Dose Given Next Dose Due aspirin 81 mg chewable tablet Chew 1 tablet (81 mg) in the morning. Do not start before March 08, 2022. calcium 500 mg calcium (1,250 mg) tablet levothyroxine 150 mcg tablet Commonly known as: Synthroid, Levoxyl Where to Get Your Medications These medications were sent to [facility] [address] [place] [address] [address] [place] [address] [address] atorvastatin 40 mg tablet sotalol 80 mg tablet Yoli is allergic to penicillins, tikosyn [dofetilide], and vancomycin. Disposition: Home or Self Care () Discharge Condition: Stable Code Status: Full Code Diagnostic Results Hematology: Results from last 7 days Lab Units 01/28/24 0411 01/27/24 1828 WBC AUTO 10*3/uL 9.98 10.27 HEMOGLOBIN g/dL 15.0 14.9 HEMATOCRIT % 47.4 45.0 MCV fL 85.9 85.1 PLATELETS AUTO 10*3/uL 218 233 INR -- 1.12* Chemistry: Results from last 7 days Lab Units 01/30/24 0407 01/29/24 0515 01/28/24 0933 01/28/24 0411 01/27/24 1828 SODIUM mmol/L 140 141 -- 140 138 POTASSIUM mmol/L 3.6 3.9 -- 4.1 3.8 CHLORIDE mmol/L 110* 108* -- 108* 106 CO2 mmol/L 24 26 -- 25 24 BUN mg/dL 29* 31* -- 28* 29* CREATININE mg/dL 1.21 1.38* -- 1.35* 1.28 GLUCOSE mg/dL 77 95 -- 87 81 MAGNESIUM mg/dL 1.9 1.9 < > -- 1.9 CALCIUM mg/dL 7.2* 7.3* -- 7.3* 7.3* PHOSPHORUS mg/dL -- -- -- -- 5.6* < > = values in this interval not displayed. Results from last 7 days Lab Units 01/27/24 1828 AST U/L 16 ALT U/L 25 ALK PHOS U/L 57 BILIRUBIN TOTAL mg/dL 0.6 Diet at the time of discharge: regular diet and cardiac diet Activity: Normal activity as tolerated Objective Blood pressure 108/77, pulse 67, temperature 36.7 ???C (98.1 ???F), temperature source Temporal, resp. rate 18, height 1.981 m (6' 6 ), weight 104 kg (228 lb 12.8 oz), SpO2 98 %. General: Alert and oriented x3. Cardiology: Normal rate, regular rhythm. Lungs: Clear to auscultation, no wheezes, rales or rhonchi, symmetric air entry. Abdomen: Soft, non tender, non distended. Extremities: No pitting edema. Neurology: No focal neuro deficit noted. Total time for discharge - review of data, exam, discussion with providers and care-team, med-rec and orders, arranging follow up, counseling of patient and/or family and documentation was 60 minutes. Signed Eddi Hutchinson MD [facility] 01/30/2024 10:10 AM CC: MD Fatuma [facility] 01-30-2024 Note [facility] CARDIOLOGY INPAT IENT PROGRESS NOTE Reason for follow up: Afib with RVR Subjective Patient c/o chest pain yesterday afternoon where he received sublingual nitroglycerin x2 doses with some relief but not completely. EKG obtained and without acute changes. He did not want 3rd dose as he was afraid he would become hypotensive. He has chronic chest pain for past few years and previously recommended to consider ruling out non-cardiac etiology (ie - musculoskeletal, GI, pulmonary). Examined at bedside today around 1200 hours. Reviewed plan with patient. He is upset that his chest pain continues without solution. Reviewed with patient recommendations from the Cardiology team and the limited treatment options due to his intolerance and/or lack of improvement in symptoms when he tried anti-anginal therapies previously. He states understanding. He reports mild episode of chest pain overnight however he did not inform the RN. He states it is pointless. Denies SOB, palpitations, dizziness or light headedness. Informed him that Dr. Joshi reviewed EKG this morning and ok with plan for discharge today if Qtc remains stable after 5th dose sotalol received. Tele: atrial pacing on demand/SR 55-85 ALLERGIES Allergies Allergen Reactions Penicillins Other As a child Tikosyn [Dofetilide] Other aphasia Vancomycin Itching Itching hands/feet CURRENT MEDS aspirin, 81 mg, oral, Daily atorvastatin, 40 mg, oral, Nightly calcium, 500 mg, oral, Daily heparin (porcine), 5,000 Units, subcutaneous, q12h CATHY levothyroxine, 150 mcg, oral, Daily before breakfast magnesium oxide, 400 mg, oral, q8h sotalol, 80 mg, oral, q12h CATHY PRN medications: acetaminophen, melatonin, nitroglycerin Objective Patient Vitals for the past 24 hrs: BP Temp Temp src Pulse Resp SpO2 Weight 01/30/24 1307 131/82 -- -- 76 18 99 % -- 01/30/24 1146 129/84 37 ???C (98.6 ???F) Temporal 68 18 100 % -- 01/30/24 0806 108/77 36.7 ???C (98.1 ???F) 67 18 98 % -- 01/30/24 0504 -- -- -- -- -- -- 104 kg (228 lb 12.8 oz) 01/30/24 0409 123/85 36.2 ???C (97.2 ???F) Temporal 67 18 100 % -- 01/30/2423 104/72 36.1 ???C (97 ???F) Temporal -- 18 100 % -- 01/30/2422 104/72 -- -- 68 -- -- -- 01/29/242017 114/80 36.3 ???C (97.3 ???F) Temporal 66 16 98 % -- 01/29/24 1600 117/73 36.6 ???C (97.9 ???F) Temporal 65 18 98 % -- BP 131/82 Pulse 76 Temp 37 ???C (98.6 ???F) (Temporal) Resp 18 Ht 1.981 m (6' 6 ) Wt 104 kg (228 lb 12.8 oz) SpO2 99% BMI 26.44 kg/m??? Wt Readings from Last 3 Encounters: 01/30/24 104 kg (228 lb 12.8 oz) 12/25/23 104 kg (230 lb) 10/10/23 104 kg (230 lb) General: Awake, alert, appropriate mood/affect, NAD Eyes: anicteric sclera. Non-injected conjunctiva. Neck: No elevated JVP. No carotid bruit Pulm: Breath sounds clear to ascultation bilaterally with no wheeze, crackles or rhonchi, non labored, on room air Cards: HRRR, NL S1, S2. No S3 or S4 gallop. Murmur: none Abd: Soft, Nontender, physiologic bowel sounds are present Extr: Lower extremity edema: none. DP pulses present bilaterally Skin: warm, dry, well perfused Neuro: A&Ox3, No gross deficits Lab Results Component Value Date NA 140 01/30/2024 K 3.6 01/30/2024 CL 110 (H) 01/30/2024 ANIONGAP 10 01/30/2024 BUN 29 (H) 01/30/2024 CREATININE 1.21 01/30/2024 CALCIUM 7.2 (L) 01/30/2024 MG 1.9 01/30/2024 PHOS 5.6 (H) 01/27/2024 Lab Results Component Value Date BILITOT 0.6 01/27/2024 BILIDIR 0.2 08/29/2020 ALKPHOS 57 01/27/2024 AST 16 01/27/2024 ALT 25 01/27/2024 PROT 6.7 01/27/2024 ALBUMIN 4.0 01/27/2024 Lab Results Component Value Date CHOLESTEROL 176 11/05/2019 TRIGLYCERIDES 334 (H) 11/05/2019 HDL 32 11/05/2019 LDL CHOLESTEROL 77 11/05/2019 Lab Results Component Value Date BNP 243 (H) 01/27/2024 Lab Results Component Value Date TSH 1.63 01/28/2024 FREE T4 1.12 11/06/2019 No results found for: DIGOXIN LVL No results found for: HGBA1C Lab Results Component Value Date WBC 9.98 01/28/2024 RBC 5.52 01/28/2024 HGB 15.0 01/28/2024 HCT 47.4 01/28/2024 MCV 85.9 01/28/2024 MCH 27.2 01/28/2024 MCHC 31.6 (L) 01/28/2024 RDW 14.8 01/28/2024 NEUTOPHILPCT 68.9 01/27/2024 LYMPHOPCT 18.7 (L) 01/27/2024 MONOPCT 9.3 01/27/2024 EOSPCT 1.8 01/27/2024 BASOPCT 0.5 01/27/2024 NEUTROABS 7.09 01/27/2024 LYMPHSABS 1.92 01/27/2024 MONOSABS 0.95 01/27/2024 EOSABS 0.18 01/27/2024 BASOSABS 0.05 01/27/2024 PLT 218 01/28/2024 NRBC 0.0 01/27/2024 No X-ray results found for the past 24 hours CV Testing: Encounter Date: 01/27/24 ECG 12 lead Result Value Ventricular Rate 56 Atrial Rate 56 HI Interval 202 QRS DURATION 90 QT Interval 508 QTC CALCULATION(BAZETT) 490 P [place] 77 R-[place]illas 36 T Wave [place] 73 Impression Atrial-paced rhythm Prolonged QT Abnormal ECG When compared with ECG of 29-JAN-2024 15:54, Electronic atrial pacemaker has replaced Sinus (more content not included)... [facility] 01-29-2024 Note As the teaching jory fitch, I have personally performed or re-performed the history of present illness, physical exam and medical decision-making activities of the encounter and verified the medical student's documentation. I made pertinent changes as necessary to ensure accurate documentation. There may be additional comments below. [facility] 01-29-2024 Note Hospital Medicine Daily Progress Note - 01/29/2024 11:02 AM; Room: 3102/3102-01 Admission: 01/27/2024 5:54 PM; Length of stay: 2 days THE HOSPITALIST TEAM PREFERS TO USE [employer] CHAT FOR COMMUNICATION 7AM-7PM. IF I DO NOT RESPOND WITHIN 15 MINUTES, PLEASE PAGE ME/CALL THROUGH THE CEREAL POPPER. FROM 7PM-7AM, PLEASE PAGE [phone](COVR) Code Status: Full Code Overview Patient is seen for evaluation and management of chest pain and plan for heart cath (direct admit from [facility]) Subjective Patient examined at bedside today. States he feels much better from yesterday. Physical Exam Visit Vitals BP 110/75 Pulse 66 Temp 36.5 ???C (97.7 ???F) (Temporal) Resp 16 Intake/Output Summary (Last 24 hours) at 01/29/2024 1102 Last data filed at 01/29/2024 0750 Gross per 24 hour Intake 480 ml Output -- Net 480 ml Physical Exam Constitutional: Appearance: Normal appearance. Cardiovascular: Rate and Rhythm: Regular rhythm. Tachycardia present. Neurological: Mental Status: He is alert. Estimated body mass index is 26.51 kg/m??? as calculated from the following: Height as of this encounter: 1.981 m (6' 6 ). Weight as of this encounter: 104 kg (229 lb 6.4 oz). Active Inpatient Problems Principal Problem: Chest pain Active Problems: Essential hypertension Pacemaker Aneurysm of ascending aorta without rupture (CMS/HCC) POTS (postural orthostatic tachycardia syndrome) A-fib (CMS/HCC) 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 Chronic kidney disease Sick sinus syndrome (CMS/HCC) Coronary artery disease involving [place] coronary artery of [place] heart Atrial fibrillation with RVR (CMS/HCC) Assessment and Plan Yoli Richelle Antunez Jr. is an 68 y.o. male who came from home with past medical history of A-fib s/p watchman, hypertension, hypothyroidism, CKD 3, POTS, CAD s/p PCI, SSS s/p PPM, aneurysm of ascending aorta presents as a direct admission from [facility] with a chief complaint of chest pain and plan for cardiac cath. #Chest pain -Troponin 0, will continue to trend -Echo completed on 06/08/2023 showing an EF of 50 to 55%, TTE planned for today -EKG completed showing atrial flutter with nonspecific ST abnormality -N.p.o. for cardiac cath later today -Cardiology following #Atrial fibrillation with rapid ventricular response -S/p Watchman procedure as patient with history of GI bleeding -Sotalol 12 mg BID started yesterday per cardio, HR in 80s-100s since starting it. Will do 6 total doses of sotalol and watch EKGs -Cardiology following #CAD s/p PCI #SSS s/p PPM #CKD 3 A, stable #Essential hypertension, continue medications #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, continue levothyroxine #POTS, continue home medications #Aneurysm of ascending aorta, continue outpatient follow VTE Prophylaxis: Heparin subcutaneous Scheduled Meds aspirin, 81 mg, oral, Daily atorvastatin, 40 mg, oral, Nightly calcium, 500 mg, oral, Daily heparin (porcine), 5,000 Units, subcutaneous, q12h CATHY levothyroxine, 150 mcg, oral, Daily before breakfast sotalol, 120 mg, oral, q12h CATHY Pertinent Investigations Hematology: Results from last 7 days Lab Units 01/28/24 0411 01/27/24 1828 WBC AUTO 10*3/uL 9.98 10.27 HEMOGLOBIN g/dL 15.0 14.9 HEMATOCRIT % 47.4 45.0 MCV fL 85.9 85.1 PLATELETS AUTO 10*3/uL 218 233 INR -- 1.12* Chemistry: Results from last 7 days Lab Units 01/29/24 0515 01/28/24 0933 01/28/24 0411 01/27/24 1828 SODIUM mmol/L 141 -- 140 138 POTASSIUM mmol/L 3.9 -- 4.1 3.8 CHLORIDE mmol/L 108* -- 108* 106 CO2 mmol/L -- 25 24 BUN mg/dL 31* -- 28* 29* CREATININE mg/dL 1.38* -- 1.35* 1.28 GLUCOSE mg/dL 95 -- 87 81 MAGNESIUM mg/dL 1.9 1.9 -- 1.9 CALCIUM mg/dL 7.3* -- 7.3* 7.3* PHOSPHORUS mg/dL -- -- -- 5.6* Results from last 7 days Lab Units 01/27/24 1828 AST U/L 16 ALT U/L 25 ALK PHOS U/L 57 BILIRUBIN TOTAL mg/dL 0.6 Historical Values: (Includes values prior to this admission) Lab Results Component Value Date TSH 1.63 01/28/2024 FREET4 1.12 11/06/2019 HDL 32 11/05/2019 LDL 77 11/05/2019 LDL 144 11/05/2019 No results found for: [id number] , IRON , TIBC , C3 , C4 , YKLE , CANCA , ASO , PSA , CEA , CA125 , CA199 , AFP , CA153 Imaging ECG 12 lead Normal sinus rhythm with sinus arrhythmia Nonspecific T wave abnormality Prolonged QT Abnormal ECG Discharge Planning Discharge Planning Type of Residence: Private residence Patient's goal for discharge: home Signed Norris Winter, MS4 [facility] 01/29/2024 11:02 AM [facility] 01-29-2024 Note [facility] CARDIOLOGY INPAT IENT PROGRESS NOTE Reason for follow up: Afib with RVR Subjective Patient examined at bedside. He denies any sob, palpitations, dizziness/light headedness, edema. Reports he had one episode of chest pain this morning, lasting 10 minutes while at rest, resolved spontaneously without any intervention. He states the pain was midsternal, no radiation, no associated symptoms, rated 6-7 out of 10 intensity. Reports it is similar to pain he feels when in atrial fibrillation with RVR but not as bad. Otherwise patient with no concerns. Vitals stable, on room air. Reports he has tried ranexa in the past with no relief of the chest pain. He has also tried isosorbide and that caused hypotension for him. He states he typically will take nitroglycerin SL at home and that will relieve his pain. Tele: atrial paced/atrial fibrillation, v.rate 66-110 bpm ALLERGIES Allergies Allergen Reactions Penicillins Other As a child Tikosyn [Dofetilide] Other aphasia Vancomycin Itching Itching hands/feet CURRENT MEDS aspirin, 81 mg, oral, Daily atorvastatin, 40 mg, oral, Nightly calcium, 500 mg, oral, Daily heparin (porcine), 5,000 Units, subcutaneous, q12h CATHY levothyroxine, 150 mcg, oral, Daily before breakfast sotalol, 120 mg, oral, q12h CATHY PRN medications: acetaminophen, melatonin Objective Patient Vitals for the past 24 hrs: BP Temp Temp src Pulse Resp SpO2 Weight 01/29/24 0453 -- -- -- -- -- -- 104 kg (229 lb 6.4 oz) 01/29/24 0338 109/79 36.1 ???C (97 ???F) Temporal 66 14 99 % -- 01/29/24 0012 117/85 -- Temporal 77 14 100 % -- 01/28/24 2036 112/80 36.7 ???C (98 ???F) Temporal 80 16 95 % -- 01/28/24 2013 110/76 -- -- 94 -- 98 % -- 01/28/24 1302 119/84 36.3 ???C (97.3 ???F) Temporal 103 -- 99 % -- 01/28/24 1259 -- -- -- 107 -- -- -- 01/28/24 0937 122/85 -- -- (!) 120 -- -- -- BP 109/79 (BP Location: Left arm, Patient Position: Lying) Pulse 66 Temp 36.1 ???C (97 ???F) (Temporal) Resp 14 Ht 1.981 m (6' 6 ) Wt 104 kg (229 lb 6.4 oz) SpO2 99% BMI 26.51 kg/m??? Wt Readings from Last 3 Encounters: 01/29/24 104 kg (229 lb 6.4 oz) 12/25/23 104 kg (230 lb) 10/10/23 104 kg (230 lb) General: Awake, alert, appropriate mood/affect, NAD Eyes: anicteric sclera. Non-injected conjunctiva. Neck: No elevated JVP. No carotid bruit Pulm: Breath sounds clear to ascultation bilaterally with no wheeze, crackles or rhonchi, non labored, on room air Cards: HRRR, NL S1, S2. No S3 or S4 gallop. Murmur: none Abd: Soft, Nontender, physiologic bowel sounds are present Extr: Lower extremity edema: none. DP pulses present bilaterally Skin: warm, dry, well perfused Neuro: A&Ox3, No gross deficits Lab Results Component Value Date NA 141 01/29/2024 K 3.9 01/29/2024 CL 108 (H) 01/29/2024 ANIONGAP 11 01/29/2024 BUN 31 (H) 01/29/2024 CREATININE 1.38 (H) 01/29/2024 CALCIUM 7.3 (L) 01/29/2024 MG 1.9 01/29/2024 PHOS 5.6 (H) 01/27/2024 Lab Results Component Value Date BILITOT 0.6 01/27/2024 BILIDIR 0.2 08/29/2020 ALKPHOS 57 01/27/2024 AST 16 01/27/2024 ALT 25 01/27/2024 PROT 6.7 01/27/2024 ALBUMIN 4.0 01/27/2024 Lab Results Component Value Date CHOLESTEROL 176 11/05/2019 TRIGLYCERIDES 334 (H) 11/05/2019 HDL 32 11/05/2019 LDL CHOLESTEROL 77 11/05/2019 Lab Results Component Value Date BNP 243 (H) 01/27/2024 Lab Results Component Value Date TSH 1.63 01/28/2024 FREE T4 1.12 11/06/2019 No results found for: DIGOXIN LVL No results found for: HGBA1C Lab Results Component Value Date WBC 9.98 01/28/2024 RBC 5.52 01/28/2024 HGB 15.0 01/28/2024 HCT 47.4 01/28/2024 MCV 85.9 01/28/2024 MCH 27.2 01/28/2024 MCHC 31.6 (L) 01/28/2024 RDW 14.8 01/28/2024 NEUTOPHILPCT 68.9 01/27/2024 LYMPHOPCT 18.7 (L) 01/27/2024 MONOPCT 9.3 01/27/2024 EOSPCT 1.8 01/27/2024 BASOPCT 0.5 01/27/2024 NEUTROABS 7.09 01/27/2024 LYMPHSABS 1.92 01/27/2024 MONOSABS 0.95 01/27/2024 EOSABS 0.18 01/27/2024 BASOSABS 0.05 01/27/2024 PLT 218 01/28/2024 NRBC 0.0 01/27/2024 No X-ray results found for the past 24 hours CV Testing: Encounter Date: 01/27/24 ECG 12 lead Result Value Ventricular Rate 65 Atrial Rate 65 HI Interval 182 QRS DURATION 80 QT Interval 472 QTC CALCULATION(BAZETT) 490 P Patillas 23 R-Patillas 29 T Wave Patillas 81 Impression Demand atrial pacing Nonspecific T wave abnormality Prolonged QT Abnormal ECG Confirmed by Lalito Joshi ([id number]) on 01/29/2024 12:23:55 PM EKG 01/28/24 15:42 Result Text IMPRESSION: Atrial-paced rhythm Nonspecific T wave abnormality Abnormal ECG When compared with ECG of 28-JAN-2024 11:28, (unconfirmed) Electronic atrial pacemaker has replaced Sinus rhythm ST no longer depressed in Inferior lead Confirmed by Lalito Joshi ([id number]) on 01/28/2024 4:40:31 PM QT Interval: 392 ms P Patillas: 67 degrees T Wave Patillas: 156 degrees QTC CALCULATION(BAZETT): 437 ms Ventricular Rate: 7 (more content not included)... [facility] 01-28-2024 Note As the teaching jory fitch, I have personally performed or re-performed the history of present illness, physical exam and medical decision-making activities of the encounter and verified the medical student's documentation. I made pertinent changes as necessary to ensure accurate documentation. There may be additional comments below. [facility] 01-28-2024 Note Pharmacy Consult for Sotalol - Daily Consult Note Yoli Antunez Jr. is a 68 y.o. male admitted for Chest pain. Pharmacy is consulted to review profile for any QT prolonging drugs. Patient is scheduled to start sotalol 80 mg q12h Current Medication List: aspirin, 81 mg, oral, Daily calcium, 500 mg, oral, Daily heparin (porcine), 5,000 Units, subcutaneous, q12h CATHY levothyroxine, 150 mcg, oral, Daily before breakfast sotalol, 80 mg, oral, q12h PRN medications: acetaminophen, melatonin Qtc Prolonging Medications that may interact with sotalol: None Lab Results: Results from last 7 days Lab Units 01/28/24 0411 01/27/24 1828 POTASSIUM mmol/L 4.1 3.8 MAGNESIUM mg/dL -- 1.9 Last EKG: Encounter Date: 01/27/24 ECG 12 lead Result Value Ventricular Rate 110 Atrial Rate 110 HI Interval 204 QRS DURATION 90 QT Interval 320 QTC CALCULATION(BAZETT) 433 P Patillas 35 R-Patillas -5 T Wave Patillas 211 Impression Sinus tachycardia Nonspecific ST and T wave abnormality Abnormal ECG When compared with ECG of 27-JAN-2024 22:03, Sinus rhythm has replaced Atrial flutter Nonspecific T wave abnormality now evident in Lateral Qtc History During Current Admission Results from last 7 days Lab Units 01/28/24 1136 01/27/24 2220 QTC CALCULATION(BAZETT) ms 433 449 Assessment and Plan Qtc prolonging medications include: none . Pharmacy will sign-off. Please do not hesitate to reach out with any questions or concerns. Thank you for the consult! Panchito Valerio, PharmD 01/28/2024 [facility] 01-28-2024 Note 01/28/24 1030 Admission Assessment Questions Verify insurance with patient Yes Do you understand medical disease or what brought you into the hospital? Yes Who is your current PCP? Radha Burris MD Can I schedule a follow up appointment for you at the time of discharge? No Do you understand why you are taking your current medications? Yes Are you taking your medications as prescribed? Yes Did patient provide teach back? No Pharmacy Bedside Delivery Status Not Interested Does the patient have a binder caser assigned to them through their insurance? No Living Arrangement (Current/Prior to Hospitalization) Private residence;Home self care (lives w/family in 2 story home. Stay on first floor. 4 entry steps) Does the patient have history of HHC or SNF? No Assistive Device Not applicable Patient's goal for discharge home Was patient reminded that goal for discharge is 11am? No Does the patient have transportation at discharge? Yes Type of Residence Private residence Is PT/OT appropriate? No Is PT/OT ordered? No Is SW consult appropriate? No Is SW consult ordered? No Do you understand the benefits of MyChart? Yes Were you able to send link and activate MyChart? MyChart already active [facility] 01-28-2024 Note Hospital Medicine Daily Progress Note - 01/28/2024 10:27 AM; Room: [address] [place] [address] Admission: 01/27/2024 5:54 PM; Length of stay: 1 days THE HOSPITALIST TEAM PREFERS TO USE [email or web address] FOR COMMUNICATION 7AM-7PM. IF I DO NOT RESPOND WITHIN 15 MINUTES, PLEASE PAGE ME/CALL THROUGH THE CEREAL POPPER. FROM 7PM-7AM, PLEASE PAGE [phone](COVR) Code Status: Full Code Overview Patient is seen for evaluation and management of chest pain and plan for heart cath (direct admit from [facility]) Subjective Patient examined at bedside today. States that he is feeling okay, just waiting for the procedure. Physical Exam Visit Vitals BP 122/85 Pulse (!) 120 Temp 36.4 ???C (97.6 ???F) (Temporal) Resp 16 Intake/Output Summary (Last 24 hours) at 01/28/2024 1027 Last data filed at 01/28/2024 0937 Gross per 24 hour Intake 702.5 ml Output -- Net 702.5 ml Physical Exam Constitutional: Appearance: Normal appearance. Cardiovascular: Rate and Rhythm: Tachycardia present. Rhythm irregular. Neurological: Mental Status: He is alert. Estimated body mass index is 26.65 kg/m??? as calculated from the following: Height as of this encounter: 1.981 m (6' 6 ). Weight as of this encounter: 105 kg (230 lb 9.6 oz). Active Inpatient Problems Principal Problem: Chest pain Active Problems: Essential hypertension Pacemaker Aneurysm of ascending aorta without rupture (CMS/HCC) POTS (postural orthostatic tachycardia syndrome) A-fib (CMS/HCC) 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 Chronic kidney disease Sick sinus syndrome (CMS/HCC) Coronary artery disease involving [place] coronary artery of [place] heart Atrial fibrillation with RVR (CMS/HCC) Assessment and Plan Oyli Richelle Antunez Jr. is an 68 y.o. male who came from home with past medical history of A-fib s/p watchman, hypertension, hypothyroidism, CKD 3, POTS, CAD s/p PCI, SSS s/p PPM, aneurysm of ascending aorta presents as a direct admission from [facility] with a chief complaint of chest pain and plan for cardiac cath. #Chest pain -Troponin 0, will continue to trend -Echo completed on 06/08/2023 showing an EF of 50 to 55%, TTE planned for today -EKG completed showing atrial flutter with nonspecific ST abnormality -N.p.o. for cardiac cath later today -Cardiology following #Atrial fibrillation with rapid ventricular response -S/p Watchman procedure as patient with history of GI bleeding -HR 120s in Afib, consider 1 dose of digoxin to rate control -Cardiology consult #CAD s/p PCI #SSS s/p PPM #CKD 3 A, stable #Essential hypertension, continue medications #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, continue levothyroxine #POTS, continue home medications #Aneurysm of ascending aorta, continue outpatient follow VTE Prophylaxis: Heparin subcutaneous Scheduled Meds aspirin, 81 mg, oral, Daily calcium, 500 mg, oral, Daily heparin (porcine), 5,000 Units, subcutaneous, q12h CATHY levothyroxine, 150 mcg, oral, Daily before breakfast Pertinent Investigations Hematology: Results from last 7 days Lab Units 01/28/24 0411 01/27/24 1828 WBC AUTO 10*3/uL 9.98 10.27 HEMOGLOBIN g/dL 15.0 14.9 HEMATOCRIT % 47.4 45.0 MCV fL 85.9 85.1 PLATELETS AUTO 10*3/uL 218 233 INR -- 1.12* Chemistry: Results from last 7 days Lab Units 01/28/24 0411 01/27/24 1828 SODIUM mmol/L 140 138 POTASSIUM mmol/L 4.1 3.8 CHLORIDE mmol/L 108* 106 CO2 mmol/L 25 24 BUN mg/dL 28* 29* CREATININE mg/dL 1.35* 1.28 GLUCOSE mg/dL 87 81 MAGNESIUM mg/dL -- 1.9 CALCIUM mg/dL 7.3* 7.3* PHOSPHORUS mg/dL -- 5.6* Results from last 7 days Lab Units 01/27/24 1828 AST U/L 16 ALT U/L 25 ALK PHOS U/L 57 BILIRUBIN TOTAL mg/dL 0.6 Historical Values: (Includes values prior to this admission) Lab Results Component Value Date TSH 1.38 09/28/2020 FREET4 1.12 11/06/2019 HDL 32 11/05/2019 LDL 77 11/05/2019 LDL 144 11/05/2019 No results found for: [id number] , IRON , TIBC , C3 , C4 , KYLE , CANCA , ASO , PSA , CEA , CA125 , CA199 , AFP , CA153 Imaging ECG 12 lead Atrial flutter Nonspecific ST abnormality Abnormal ECG When compared with ECG of 30-AUG-2023 08:38, Atrial flutter has replaced Electronic atrial pacemaker ST now depressed in Inferior lead Confirmed by Mono Christie ([id number]) on 01/27/2024 10:39:18 PM Discharge Planning Signed Norris Winter, MS4 Hospital Medicine 01/28/2024 10:27 AM [facility] 01-27-2024 Note Hospital Medicine History and Physical 01/27/2024 7:22 PM THE HOSPITALIST TEAM PREFERS TO USE [employer] FOR NON-URGENT COMMUNICATION 7AM-7PM. IF I DO NOT RESPOND WITHIN 20 MINUTES OR URGENT MATTERS, PLEASE CALL THROUGH THE CEREAL POPPER. FROM 7PM-7AM, PLEASE PAGE [phone](COVR). Chief Complaint Direct admit from [facility] with chest pain History of Present Illness Yoli Antunez Jr. is an 68 y.o. male who came from home with past medical history of A-fib s/p watchman, hypertension, hypothyroidism, CKD 3, POTS, CAD s/p PCI, SSS s/p PPM, aneurysm of ascending aorta presents as a direct admission from [facility] with a chief complaint of chest pain and plan for cardiac cath. Patient initially went to [facility] this past Saturday with intermittent chest tightness/pain with associated jaw and left arm pain. He also stated associated dizziness and diaphoresis. He was found to be in atrial fibrillation with rapid ventricular response. He was initially started on a Cardizem drip, however, this dropped the patient's blood pressure so it was stopped. Heart rate has been rate controlled around 110 bpm. During this time,patient continued to have a pressure-like chest pain. He explained that it was worse with exertion but would sometimes come when he was sitting in bed. EKG did show mild ST depression. Labs were completed showing WBC 10.5, hemoglobin 14.2, hematocrit 43.7, platelet count 212, sodium 138, potassium 3.7, chloride 105, BUN 25, creatinine 1.56, calcium 6.6. His case was discussed with our cardiology team and they would like him brought over for a left heart cath for unstable angina. During my exam, he was denying CP and SOB. Review of System and Physical Exam Temp: [36.4 ???C (97.5 ???F)] 36.4 ???C (97.5 ???F) Heart Rate: [109] 109 Resp: [18] 18 BP: (125)/(93) 125/93 Physical Exam Vitals reviewed. Constitutional: Appearance: He is normal weight. HENT: Head: Normocephalic and atraumatic. Mouth/Throat: Mouth: Mucous membranes are moist. Pharynx: Oropharynx is clear. Eyes: Conjunctiva/sclera: Conjunctivae normal. Cardiovascular: Rate and Rhythm: Tachycardia present. Rhythm irregular. Pulses: Normal pulses. Heart sounds: Normal heart sounds. Pulmonary: Effort: Pulmonary effort is normal. Breath sounds: Normal breath sounds. Abdominal: General: Abdomen is flat. Bowel sounds are normal. Skin: General: Skin is warm and dry. Capillary Refill: Capillary refill takes less than 2 seconds. Neurological: General: No focal deficit present. Mental Status: He is alert and oriented to person, place, and time. Mental status is at baseline. Psychiatric: Mood and Affect: Mood normal. Thought Content: Thought content normal. Review of Systems Constitutional: Positive for diaphoresis and fatigue. Negative for appetite change, chills and fever. HENT: Negative for congestion and dental problem. Eyes: Negative for discharge. Respiratory: Positive for chest tightness and shortness of breath. Negative for cough. Cardiovascular: Positive for chest pain and palpitations. Negative for leg swelling. Gastrointestinal: Negative for abdominal pain, constipation, diarrhea, nausea and vomiting. Genitourinary: Negative for difficulty urinating and dysuria. Musculoskeletal: Negative for arthralgias and back pain. Skin: Negative for color change, pallor and rash. Neurological: Positive for dizziness and light-headedness. Negative for seizures, facial asymmetry, speech difficulty, numbness and headaches. Psychiatric/Behavioral: Negative for agitation, behavioral problems, confusion and decreased concentration. Problem List Principal Problem: Chest pain Active Problems: Essential hypertension Pacemaker Aneurysm of ascending aorta without rupture (CMS/HCC) POTS (postural orthostatic tachycardia syndrome) A-fib (CMS/HCC) 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 Chronic kidney disease Sick sinus syndrome (CMS/HCC) Coronary artery disease involving [place] coronary artery of [place] heart Assessment and Plan Yoli Richelle Antunez Jr. is an 68 y.o. male who came from home with past medical history of A-fib s/p watchman, hypertension, hypothyroidism, CKD 3, POTS, CAD s/p PCI, SSS s/p PPM, aneurysm of ascending aorta presents as a direct admission from [facility] with a chief complaint of chest pain and plan for cardiac cath. #Chest pain -Troponin 0, will continue to trend -Echo completed on 06/08/2023 showing an EF of 50 to 55% -EKG completed showing atrial flutter with nonspecific ST abnormality -N.p.o. for cardiac cath in a.m. -Cardiology consult #Atrial fibrillation with rapid ventricular response -S/p Watchman procedure as patient with history of GI bleeding -Currently rate controlled rhythm and stable BP -Cardiology consult #CAD s/p PCI #SSS s/p PPM #CKD 3 A, stable #Essential hypertension, continue medications #Hypothyroi (more content not included)... [facility] 01-20-2024 History of Present illness Narrative Images from the original note were not included. Yoli Antunez is a 68 y.o. male presents with chief complaint of Rash HPI: HPI Patient is present with c/o ongoing rash on both legs. He states he picked up the cream that was sent in for him last visit, but he thinks the rash may have gotten worse. Patient reports that it is spreading. SUBJECTIVE: MEDICATIONS: Current Outpatient Medications Medication Instructions calcium carbonate (Os-Atilio) 1250 (500 Ca) MG chewable tablet 1 tablet, Oral, Daily RT clotrimazole (Lotrimin) 1 % cream Topical, 2 times daily levothyroxine (SYNTHROID) 150 mcg, Oral, Daily before breakfast metoprolol tartrate (LOPRESSOR) 12.5 mg, Oral, 2 times daily, Per cardio Dr Vilchis nitroglycerin (NITROSTAT) 0.4 mg, Sublingual topiramate (TOPAMAX) 12.5 mg, Oral, 2 times daily I have reviewed and reconciled the history and medication list with the patient today. REVIEW OF SYMPTOMS: Review of Systems Constitutional: Negative for fatigue. HENT: Negative. Respiratory: Negative. Negative for cough, shortness of breath and wheezing. Cardiovascular: Negative for chest pain and palpitations. Gastrointestinal: Negative. Genitourinary: Negative. Skin: Positive for rash (bilateral L.E. and bilateral U.E.). Neurological: Negative. Psychiatric/Behavioral: Negative. OBJECTIVE: Visit Vitals Smoking Status Former Physical Exam Vitals and nursing note reviewed. Cardiovascular: Rate and Rhythm: Normal rate and regular rhythm. Pulses: Normal pulses. Heart sounds: Normal heart sounds. Pulmonary: Effort: Pulmonary effort is normal. Breath sounds: Normal breath sounds. Abdominal: General: Abdomen is flat. Bowel sounds are normal. Palpations: Abdomen is soft. Musculoskeletal: General: Normal range of motion. Cervical back: Normal range of motion and neck supple. Skin: General: Skin is warm and dry. Findings: Rash present. Rash is macular and urticarial. Neurological: General: No focal deficit present. Mental Status: He is oriented to person, place, and time. ASSESSMENT AND PLAN: Assessment/Plan Diagnoses and all orders for this visit: Irritant contact dermatitis due to other agents - predniSONE (Deltasone) 10 MG tablet; Take 1 tablet (10 mg) by mouth in the morning and 1 tablet (10 mg) before bedtime. Do all this for 5 days. Take medications as prescribed. documented in this encounter [facility] 01-13-2024 History of Present illness Narrative Images from the original note were not included. Yoli Antunez is a 68 y.o. male presents with chief complaint of Rash (Behind both legs, for the past 3-4 weeks. Was using calamine lotion. Notices when he is scratching it will spread. ) HPI: HPI Presents to the office with complaints of rash behind bilateral knees, started about 4 weeks ago. Has been using calamine lotion OTC with no improvement. Will spread when he scratches it SUBJECTIVE: MEDICATIONS: Current Outpatient Medications Medication Instructions calcium carbonate (Os-Atilio) 1250 (500 Ca) MG chewable tablet 1 tablet, Oral, Daily RT levothyroxine (SYNTHROID) 150 mcg, Oral, Daily before breakfast metoprolol tartrate (LOPRESSOR) 12.5 mg, Oral, 2 times daily, Per cardio Dr Vilchis nitroglycerin (NITROSTAT) 0.4 mg, Sublingual topiramate (TOPAMAX) 12.5 mg, Oral, 2 times daily REVIEW OF SYMPTOMS: Review of Systems Skin: Positive for rash. OBJECTIVE: Visit Vitals BP 124/76 (BP Location: Left arm, Patient Position: Sitting, BP Cuff Size: Large adult) Pulse 84 Ht 6' 6 Wt 238 lb 3.2 oz SpO2 96% BMI 27.53 kg/m Smoking Status Former BSA 2.44 m Physical Exam Vitals reviewed. HENT: Head: Normocephalic and atraumatic. Nose: Nose normal. Mouth/Throat: Mouth: Mucous membranes are moist. Eyes: Pupils: Pupils are equal, round, and reactive to light. Cardiovascular: Rate and Rhythm: Normal rate and regular rhythm. Pulses: Normal pulses. Heart sounds: Normal heart sounds. Pulmonary: Effort: Pulmonary effort is normal. Breath sounds: Normal breath sounds. Musculoskeletal: Cervical back: Neck supple. Skin: General: Skin is warm and dry. Capillary Refill: Capillary refill takes less than 2 seconds. Findings: Rash present. Comments: Rash to posterior knees erythematous with satellite lesions Neurological: General: No focal deficit present. Mental Status: He is alert and oriented to person, place, and time. ASSESSMENT AND PLAN: Assessment/Plan Diagnoses and all orders for this visit: Dermatitis - clotrimazole (Lotrimin) 1 % cream; Apply topically 2 (two) times a day -Looks more fungal related, will start him on clotrimazole cream topically, instructed to contact office if symptoms persist. Chronic kidney disease, stage 3a (HCC) (CMS/HCC) Atherosclerosis of aorta (CMS/HCC) Thoracic aortic ectasia (CMS/HCC) documented in this encounter [facility] 01-02-2024 Evaluation note Type assessment Other cervical disc degeneration, unspecified cervical region [facility] Work Phone: [phone] 548-635309-12-2024 History of Present illness Narrative* Encounter Date Complaint History Of Prese nt Illness Follow Up Spine-cervical Locatio n: Pain diagram reviewed and is filed in the patients chart . Hand Dominance: Patient is right handed. Comments: h/o C3-4 ACDF around 10-13 years ago by [facility]. He states his neck has been bothering him for a year or two. He is having pain and stiffness with moving his head back and forth. He states that he has been having chest pain, headaches, dizziness and was referred to come back for a follow up from his bobbin inspector. New Problem Spine-cervical Locat ion: Pain diagram [...] presents [facility] review [facility]. New Problem Spine-cervical Locat ion: Bilateral [...] well up until a few months ago. [place] [employer] [facility] Work Phone: [phone]) 698-750009-04-2024 [facility] Note Chief Complaint: follow up for dizziness and chest pain. HPI: Yoli Peoples Harmony Isidro is a 68 y.o. male with a complex medical history including paroxysmal atrial fibrillation s/p watchman device, chronic kidney disease, dyslipidemia and hypertension. He has atypical/noncardiac chest pain, he is here for follow-up I reviewed the results of his cardiac catheterization 02/2021; this was done at [facility]. He has mild nonobstructive coronary artery disease. [...] family physician. 3.- Will follow up with dye tank tender Dr. Vilchis. Serene Solis MD Pipe Line Maintenance Supervisor - PGY6 [facility] By using the attestations below, the signing clinician ag (more content not included)...[facility]09-03-2024 History of Present illness Narrative* Radha Burris MD - 12/24/2023 9:30 AM EDT Images from the original note were not included. Yoli Antunez is a 68 y.o. male presents with chief complaint of Establish Care HPI: Past few years patient will occasionally get a sharp pain on the right back side of the head. This will come and go maybe 3 times a year but today patient had this sharp pain again and said it typically last 1-2 days. Pain does not radiate Patient has hx of concussions and pins and screws in his neck. Patient also mentioned his diastolic number being high this morning around 0430 History of Present Illness The patient presents for evaluation of multiple medical concerns. He reports experiencing shortness of breath, chest pain, and dizziness on a daily basis. Despite attempts to manage these symptoms with medication, he has not found relief. His bobbin inspector, Dr. Vilchis, is uncertain if these symptoms are related to an autonomic issue. During his last visit, Dr. Vilchis suggested the possibility of microvascular disease but did not provide further guidance. He was prescribed Ranexa, but it was discontinued due to adverse effects. His metoprolol dosage was reduced by half a few weeks ago, which has led to an increase in his diastolic blood pressure, reaching high 90s or low 100s at times. This increase in blood pressure exacerbates his symptoms. His blood pressure was recorded as 96 this morning upon waking up. He has been experiencing intermittent headaches for several years. These headaches, which he describes as a tearing sensation, occur sporadically and resolve after a day or two. He also reports a raised area on the back of his head, but does not experience any associated numbness or tingling. He has hardware implanted in his neck, consisting of three plates and twelve screws. He is seeking a referral to a new instrument lens inspector as he was dissatisfied with his previous one. He has been dealing with daily diarrhea for the past year. He has tried cholestyramine and three other medications without success. He reports no presence of blood in his stool. His bowel movements occur two to three times a day, and there are occasional days when he does not have any bowel movements. He has also tried Imodium, but it did not alleviate his symptoms. SUBJECTIVE: MEDICATIONS: Current Outpatient Medications Medication Instructions calcium carbonate (Os-Atilio) 1250 (500 Ca) MG chewable tablet 1 tablet, Oral, Daily RT levothyroxine (SYNTHROID) 150 mcg, Oral, Daily before breakfast metoprolol tartrate (LOPRESSOR) 12.5 mg, Oral, 2 times daily, Per cardio Dr Vilchis nitroglycerin (NITROSTAT) 0.4 mg, Sublingual topiramate (TOPAMAX) 12.5 mg, Oral, 2 times daily I have reviewed and reconciled the history and medication list with the patient today. REVIEW OF SYMPTOMS: Review of Systems All other systems reviewed and are negative. OBJECTIVE: Visit Vitals BP 130/88 Pulse 79 Ht 6' 6 Wt 239 lb SpO2 97% BMI 27.62 kg/m Smoking Status Former BSA 2.44 m Physical Exam Vitals and nursing note reviewed. Constitutional: Appearance: Normal appearance. HENT: Head: Normocephalic and atraumatic. Cardiovascular: Rate and Rhythm: Normal rate and regular rhythm. Pulses: Normal pulses. Heart sounds: Normal heart sounds. Pulmonary: Effort: Pulmonary effort is normal. Breath sounds: Normal breath sounds. Musculoskeletal: Cervical back: Normal range of motion and neck supple. Skin: General: Skin is warm and dry. Neurological: Mental Status: He is alert. Psychiatric: Mood and Affect: Mood normal. ASSESSMENT AND PLAN: Assessment & Plan 1. Cardiac issues. His blood pressure remains elevated, with a diastolic reading of 88 today. He reports that his diastolic blood pressure occasionally reaches the high 90s to low 100s, particularly after his metoprolol dose was halved. Given the potential addition of sildenafil or tadalafil by his bobbin inspector, it is prudent not to alter his current medications at this time. He has been advised to consult with 's office regarding the ineffectiveness of his current treatment plan and to discuss the next steps. 2. Headaches. He experiences intermittent headaches that resolve spontaneously after a day or two. These headaches are localized to a specific spot on his head and do not radiate or cause numbness or tingling. Given their transient nature, no changes will be made to his current treatment plan unless the frequency or duration of his headaches increases. 3. Diarrhea. He reports daily diarrhea for the past year, with occasional days of no bowel movements followed bysevere episodes. His last colonoscopy in March 2023 did not reveal any signs of colitis, although the bowel prep was inadequate. His thyroid function, which was previously underactive and then slightly overactive, normalized three months ago. A referral will be made to a new instrument lens inspector for further evaluation and management of his diarrhea. He has tried multiple medications, including cholestyramine and Imodium, without significant relief. Assessment/Plan Problem List Items Addressed This Visit Angina at rest (CMS/HCC) Other Visit Diagnoses Diarrhea, unspecified type - Primary Relevant Orders Ambulatory referral to Gastroenterology Autonomic dysfunction documented in this encounterHannibal [facility] [id number] NoteSYNCOPE AND AUTON[facility] DISORD[facility] Reason for [...] MR HEAD ANGIO WO IV CONTRAST 07/09/2022 [facility] MR IMAGING MR NECK ANGIO WO IV CONTRAST 07/09/2022 MR NECK ANGIO WO IV CONTRAST 07/09/2022 [facility] MR IMAGING NECK SURGERY THYROIDECTOMY SH: [...] regular Heart Sounds: normal (more content not included)...[facility]02-09-2024 NoteHNO ID: [id number] Author: MARÍA PEARL APRN.RESTAURANT GENERAL MANAGER Service: ? Author Type: Nurse Practitioner Type: [...] visit. Either the patient or their legal guest services representative has been informed of the risks [...] will repeat tilt table testing here at [facility]. We reviewed the diagnosis of [...] was seen by Dr. Vilchis at the [facility] yesterday. Dr. Vilchis feels that Jamil has sick sinus syndrome. He is going to have a pacemaker placed. Jamil is going to have an echocardiogram and stress test next week. Pacemaker to follow the above testing. Skin nerve biopsy here at [facility] not indicative of small fiber neuropathy. Abnormality [...] well. Medications Reviewed ergocal (more content not included)...[facility]02-09-2024 History of Present illness Narrative* María Pearl APRN.[facility] - 05/31/2023 10:45 AM EST Yoli Antunez is a 68 year old male. Patient presents with: Follow Up Today I had the opportunity to have a virtual visit with Yoli Antunez I have communicated my name and active licensure. The patient's identity and physical location wereverified at the time of this visit. Either the patient or their legal guest services representative has been informed of the risks [...] will repeat tilt table testing here at [facility]. We reviewed the diagnosis of [...] was seen by Dr. Vilchis at the [facility] yesterday. Dr. Vilchis feels that Jamil has sick sinus syndrome. He is going to have a pacemaker placed. Jamil is going to have an echocardiogram and stress test next week. Pacemaker to follow the above testing. Skin nerve biopsy here at [facility] not indicative of small fiber [...] He was seen by Dr. Vilchis at [facility] who would like to place a [...] which included preparing to see the patient, tubb-qs-ficd patient care, completing clinical documentation, obtaining and/or [...] this visit on 05/31/23. María Pearl MSN, DIRECTOR PAYER, COFFEE SOMMELIER-C documented in this encounterSalem [facility] Center01-29-2024 Evaluation note* Encounter Date Diagnosis Assessment Notes Treatment Notes Treatment Clinical Notes Apr, Abdominal pain (ICD-10 - R10.9) Apr, Diarrhea (ICD-10 - R19.7) [employer] [place] [employer] Other 12-26-2023 Procedure [facility]12-11-2023 Evaluation note* Encounter Date Diagnosis Assessment Notes Treatment Notes Treatment Clinical Notes Mar, Abdominal pain (ICD-10 - R10.9) Mar, Diarrhea (ICD-10 - R19.7) [facility] [employer] Other 11-29-2023 Evaluation note* Encounter Date Diagnosis Assessment Notes Treatment Notes Treatment Clinical Notes Feb, Diarrhea (ICD-10 - R19.7) Feb, Hiatal hernia (ICD-10 - K44.9) [facility] [employer] Other 11-06-2023 NoteHNO ID: [id number] Author: Joann Stark PA-C Service: ? Author Type: Physician Donor Services Manager Type: Progress Notes Filed: 02/25/2023 2:52 PM Note Text: Skin Biopsy Procedure Note Skin Biopsy Accession Number: [id number] Biopsy Date: 02/25/2023 Referring physician: María Pearl [...] Procedure Note Procedure confirmed with provider and residential direct support professional. Yes, left leg 2 skin biopsies. The [...] home. Specimens were labeled and sent to [facility] Cutaneous Nerve Laboratory. Procedure was performed by: Joann Stark PA-C Assistance in supply/equipment preparation performed by: DAVID Downs Sign out is complete.[facility]11-06-2023 History of Present illness Narrative* Joann Stark PA-C - 02/25/2023 2:09 PM EST Skin Biopsy Procedure Note Skin Biopsy Accession Number: [id number] Biopsy Date: 02/25/2023 Referring physician: María Pearl [...] Procedure Note Procedure confirmed with provider and residential direct support professional. Yes, left leg 2 skin biopsies. The [...] home. Specimens were labeled and sent to [facility] Cutaneous Nerve Laboratory. Procedure was performed by: Joann Stark PA-C Assistance in supply/equipment preparation performed by: DAVID Downs Sign out is complete. documented in this [facility]10-17-2023 Miscellaneous Notes* Telephone Encounter - Shivani Ambriz RN - 02/05/2023 1:00 PM EDT Images from the original note were not included. María Pearl APRN.RESTAURANT GENERAL MANAGER You 7 minutes ago (12:52 PM) This is a normal result. [place] YAMILA Carnes, RN * Telephone Encounter - Shivani Ambriz RN - 02/05/2023 12:48 PM EDT Images from the original note were not included. Copper: YAMILA Carnes, RN * Telephone Encounter - Aydee Hunter - 02/05/2023 12:06 PM EDT Scanned in results from [facility] for review documented in this encounterSalem Regional Medical Center10-12-2023 History of Present illness Narrative* Yossi Chen [...] and scan are done. [facility] Work Phone: 1(999) 225-496710-12-2023 Instructions* Patient Instructions* Yossi Chen MD - 01/31/2023 3:00 PM EDT I will get stool culture and CT scan to figure out the reason for the abdominal pain and diarrhea documented [facility] Work Phone: 1(192) 851-280010-09-2023 Miscellaneous Notes* Telephone Encounter - Paul Burns RN - 01/28/2023 4:08 PM EDT Images from the original note were not included. María Pearl APRN.RESTAURANT GENERAL MANAGER You 6 hours ago (9:39 AM) I have a message out to headache clinic about adjusting his medication. YAMILA Cage, RN, BA documented in this encounterSalem Regional Medical Center10-09-2023 Miscellaneous Notes* Telephone Encounter - Paul Burns RN - 01/28/2023 3:39 PM EDT JESSICA sent MCM to patient. Patient read. YAMILA Cage, RN, BA documented in this encounterSalem Regional Medical Center10-09-2023 Miscellaneous Notes* Telephone Encounter - Paul Burns RN - 01/28/2023 10:43 AM EDT Images from the original note were not included. María Pearl APRN.RESTAURANT GENERAL MANAGER You 15 minutes ago (10:27 AM) Thank you. Appears normal. YAMILA Vivar, RN, BA * Telephone Encounter - Paul Burns RN - 01/28/2023 9:58 AM EDT Images from the original note were not included. YAMILA Cage, RN, BA * Telephone Encounter - Aydee Hunter - 01/28/2023 9:36 AM EDT Scanned in results from [facility] for review documented in this encounterSalem Regional Medical Center10-05-2023 NoteHNO ID: [id number] Author: Peggy Bravo RN Service: ? Author [...] María Pearl APRN.NEETU . Procedure Start Time: 1418 Height 198.1 cm Weight 112.5 kg Patient [...] RN; Briana Emmanuel RN Procedure Finish Time: 1523C[facility] NoteHNO ID: [id number] Author: María Pearl APRN.CNP Service: ? 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 The lightheadedness and dizziness does NOT [...] follow with the headache clinic here at [facility]. On May 23, 2022 he [...] by cardiology, Jackie Banks CNP, at the [facility]. Jackie had a concern for autonomic dysfunction. She placed Jamil on pyridostigmine, but he had significant diarrhea and it was thus discontinued. He has constant bilateral tinnitus. He states it sounds like an air gabriel. He has not seen ENT. He has a ILR and watchman. These have not revealed a cause for his lightheadedness or dizziness. He did see his bobbin inspector this week who felt his symptoms are [...] focal stenosis, occlusion, or aneurysmal dilatation. Complete [place]. He is brought in today [...] not taking: Reported on (more content not included)...[facility]10-04-2023 NoteHNO ID: [id number] Author: Kristen Wagner OCCA Service: ? Author Type: Hairspring Cutter Type: Progress Notes Filed: 01/23/2023 10:15 AM [...] How severe is this focusing problem? : ModerateKettering Health 12-31-2022 NoteHNO ID: [id number] Author: Sarbjit Richardson APRN.RESTAURANT GENERAL MANAGER Service: ? Author Type: Nurse Practitioner Type: Progress Notes Filed: 12/31/2022 5:04 PM Note Text: [facility] Follow up visit December 31, 2022 Chief [...] He was evaluated by Cardiology at the [facility] for syncopal episodes. 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 put in in the front front loader residential driver and helped him to the house - [...] essentially unremarkable including troponins and ECG 09/11/2022 [facility]- Cardiology - Jackie Banks ASSISTANT HEAD CASHIER wrote: I copied and pasted my initial consult note from [facility] date 07/20/2022 for continuity of care: Hx paroxysmal atrial fibrillation. Undervent a watchman device implant at [facility] 03/06/2022. History of CAD. AAA not [...] Last evaluated one month ago by neurology [facility]. Recent MRA MRV. HPI: Syncope began about [...] Items Addressed This Visit Referred back [facility]; Headache 1 Onset: - Migraine headache s Location: frontal (occipital vertex) Quality/ (more content not included)...[facility]09-11-2023 History of Present illness Narrative* Sarbjit Richardson, BRENNA.RESTAURANT GENERAL MANAGER - 12/31/2022 3:15 PM EDT [facility] Follow up visit December 31, 2022 Chief [...] He was evaluated by Cardiology at the [facility] for syncopal episodes. 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 put in in the front front loader residential driver and helped him to the house - [...] essentially unremarkable including troponins and ECG 09/11/2022 [facility]- Cardiology - Jackie Banks ASSISTANT HEAD CASHIER wrote: I copied and pasted my initial consult note from [facility] date 07/20/2022 for continuity of care: Hx paroxysmal atrial fibrillation. Undervent a watchman device implant at [facility] 03/06/2022. History of CAD. AAA not [...] Last evaluated one month ago by neurology [facility]. Recent MRA MRV. HPI: Syncope began about [...] Items Addressed This Visit Referred back to [facility]; Headache 1 Onset: - Migraine headache s [...] MR neck / head angio 07/09/2022- at [facility] Impression No gross evidence for flow-limiting stenosis of bilateral extrarenal vertebral or carotid arteries accounting for extensive patient motion artifact. If persistent concern for an abnormality of the carotid or vertebral arteries, consider CTA if clinically indicated. Impression No focal stenosis, occlusion, or aneurysmal dilatation. Complete [place]. CT brain 05/23/2022 Impression *Negative [...] osteopenia, and partially imaged atlantoaxial arthritic changes. Policy Manager (topogram) images: No additional findings. HEADACHE SCORES: [...] articulation, and clear,coherent, and relevant. Short and manager terminal memory, cognition and general fund of knowledge [...] followed by aphasia. He was evaluated in [place] for syncope - felt it was neurocardiogenic [...] which included preparing to see the patient, tqxp-ym-rtnl patient care, completing clinical documentation, obtaining and/or reviewing separately obtained history, performing a medically appropriate examination, counseling and educating the patient/family/caregiver, and ordering medications, tests, or procedures. Sarbjit Richardson APRN.CNP Headache [facility] December 31, 2022 5:03 PM documented in this encounterSalem Regional Medical Center08-03-2023 NoteSend Summary: Discharge Summary Providers: Provider RoleProvider Name Radha Jorge Abraham PrimaryHohman, Jennifer Note Recipients: Radha Burris MD - [id number] [] Discharge: Summary: Admission Date: .21-Nov-2022 05:06:00 [...] discharge: Full Code Electronic Signatures: Sivan Costa (DIRECTOR PAYER-RESTAURANT GENERAL MANAGER) (Signed 22-Nov-2022 12:13) Authored: Send Summary, Summary Content, Ongoing Care, DNR Status Yossi Chen) (Signed 22-Nov-2022 12:27) Authored: Summary Content, Ongoing Care, Note Completion Last Updated: 22-Nov-2022 12:27 by Yossi Chen)[facility] 11-21-2022 NotePost Operative Note: PreOp Diagnosis: symptomatic hiatal hernia Post-Procedure Diagnosis: same Procedure: 1. Laparoscopic repair of Type 3 paraesophageal hernia with Toupet wrap and gastroscopy 2. 3. 4. 5. Surgeon: April Resident/Fellow/Other Donor Services Manager: Adrián/Elio Estimated Blood Loss (mL): none Specimen: [...] circumferentially. The retroesophageal window was created. The Rumsey drain was placed. I proceeded with mediastinal [...] esophagus to the right side. A lighted 56-Micronesian bougie was placed. The shoeshine maneuver was [...] #1 Ethibond with a Tony-Ran in a mfeoqv-cs-hosij fashion. The liver retractor was removed. The [...] Completion Last Updated: 21-Nov-2022 13:27 by Yossi Chen)[facility] 11-21-2022 History of Present illness [id number] patient who underwent laparoscopic repair of paraesophageal [...] it down withwater. Denies heartburn and acid reflux.-[facility] [address] Work Phone: 1(970) 479-867608-02-2023 History of Present illness Narrative 67-year-old patient [...] reflux, heartburn and having less coughing with mealAdventist Medical Center [address] DO Work Phone: [phone]) 295-470408-02-2023 NoteHistory & Physical Reviewed: I have reviewed [...] Completion Last Updated: 21-Nov-2022 07:15 by Yossi Chen)[facility] 11-16-2022 Miscellaneous Notes* Telephone Encounter - Jessica Scott - 11/16/2022 5:55 PM EDT Received faxed report of medical records done at . Uploaded via [employer], will be available in [employer] for review shortly. documented in this encounterSalem Regional Medical Center07-03-2023 Miscellaneous Notes* Telephone Encounter - Sarbjit Richardson APRN.CNP - 10/22/2022 4:33 PM EDT Opened in error Sarbjit Richardson APRN.NEETU documented in this encounterSalem Regional Medical Center06-29-2023 NoteHNO ID: [id number] Author: Michaela Polo RN Service: ? Author [...] dizziness. IV removed. Pt discharged from treatment room.[facility]06-29-2023 History of Present illness Narrative* Michaela Polo [...] discharged from treatment room. documented in this encounterSalem Regional Medical Center06-26-2023 NotePROCEDURE DETAILS Preoperative Diagnosis: Sleep apnea, G47.30 Postoperative Diagnosis: Sleep Apnea Surgeon: Arabella Terry Resident/Fellow/Other Donor Services Manager: None of these were associated with this [...] Completion Last Updated: 15-Oct-2022 11:11 by Arabella Terry)[facility]06-26-2023 Miscellaneous Notes* Op Note - Arabella Butt MD - 10/15/2022 11:02 AM EDT PROCEDURE DETAILS Preoperative Diagnosis: Sleep apnea, G47.30 Postoperative Diagnosis: Sleep Apnea Surgeon: Arabella Terry Resident/Fellow/Other Donor Services Manager: None of these were associated with this [...] 11:11 by Arabella Terry) documented in this [facility] Work Phone: 1(524) 602-923406-26-2023 Note* Op Note - Arabella Butt MD - 10/15/2022 11:02 AM EDT PROCEDURE DETAILS Preoperative Diagnosis: Sleep apnea, G47.30 Postoperative Diagnosis: Sleep Apnea Surgeon: Arabella Terry Resident/Fellow/Other Donor Services Manager: None of these were associated with this [...] Last Updated: 15-Oct-2022 11:11 by Arabella Terry) [facility] Work Phone: 1([phone]) 501-214506-06-2023 Chief complaint Narrative - Reported* An interactive audio and video telecommunication system which permits real time communications between the patient (at the originating site) and provider (at the distant site) was utilized to providethis telehealth service. * Verbal consent was requested and obtained from YOLIFRANKIE ANTUNEZ on this date, 09/25/2022 02:30 PM, for a telehealth visit. * Dysphagia follow-up [facility] Work Phone: 1(429) [phone] History of Present illness Narrative* 67 year [...] more in his throat. Seeing neurology at [facility] for his intermittent aphasia. Still awaiting manometry results. * 09/04/22: * Here for follow-up. Esophagram completed 08/10/22 with moderate hiatal hernia, possible inflammatorynarrowing at GEJ, also area of mucosal irregularity for which endoscopy was recommended. He had manometry placed under endoscopy on 08/30/22, overall esophagus appeared normal on their exam with guslj4ta nodule at GEJ that was biopsied. Pathology [...] stasis and intraesophageal regurgitation. 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 * MBS September 2019 - reduced base of tongue retraction, poor pharyngeal wall squeeze, poor relaxation ofUES, no change with head turn or chin tuck * esophagram 2018 - slow clearing of the distal esophagus and pill sticking in the vallecula [facility] Work Phone: [phone]) 172-606705-25-2023 NoteHNO ID: [id number] Author: Sarbjit Richardson APRN.RESTAURANT GENERAL MANAGER Service: ? Author Type: Nurse Practitioner Type: Progress Notes Filed: 09/13/2022 11:43 AM Note Text: [facility] Virtual Visit Follow up During this COVID-19 [...] visit. Either the patient or their legal guest services representative has been informed of the risks [...] and sore throat after infusion. Jackie Banks ASSISTANT HEAD CASHIER wrote 07/20/2022: [facility] [place] [facility]. Yoli Antunez is a pelasant 67 year old male referred to Dr Shukri Vilchis and the Syncope and Autonomic Disorders Clinic in the Heart [facility] Vascular [facility] at the [facility] for an evaluation of syncope. Hx paroxysmal atrial fibrillation. Undervent a watchman device implant at [facility] 03/06/2022. History of CAD. AAA not [...] Last evaluated one month ago by neurology [facility]. Recent MRA MRV. Assessment/Plan The primary encounter [...] with treatment: Dura (more content not included)... [facility]05-16-20[facility] History of Present illness Narrative* 67 year [...] esophagus appeared normal on their exam with ltryk3nq nodule at GEJ that was biopsied. Pathology [...] esophagus and pill sticking in the vallecula [facility] Work Phone: 1(868) 102-535005-16-2023 Chief complaint Narrative - Reported* An interactive audio and video telecommunication system which permits real time communications between the patient (at the originating site) and provider (at the distant site) was utilized to providethis telehealth service. * Verbal consent was requested and obtained from YOLI ANTUNEZ on this date, 09/04/2022 11:30 AM, for a telehealth visit. * Dysphagia follow-up [facility] Work Phone: 1([phone] 174-381505-11-2023 NotePatient Name: Yoli Antunez Procedure Date: 08/30/2022 7:32 AM Date of : 1955 Admit Type: Outpatient Site: [place] Procedure Room 5 Ethnicity: Not or Race: White Attending MD: ELISEO Williamson, [id number] Procedure: Upper GI endoscopy Indications: Dysphagia for 5 years to both liquids and solids Patient Profile: This is a 67 year old male. Refer to note in patient chart for documentation of history and physical. Providers: ELISEO Williamson (Doctor), Jaylen Lo RN (Nurse), Florentino De Dios, Scene Painter, Kristin Mcdaniels RN (Nurse) Referring: Radha Burris [...] specimen was done by the nurse and reprographics technician using the patient's name and medical record number. Estimated blood loss was minimal. A single 3 mm nodule was found at the gastroesophageal junction, 39 cm from the incisors. Biopsies were taken with a cold forceps for histology. Verification of patient identification for the specimen was done by the nurse and reprographics technician using the patient's name and medical [...] and technici (more content not included)...PROVATION - [id number] Reason for visit Narrative* An interactive audio and video telecommunication system which permits real time communications between the patient (at the originating site) and provider (at the distant site) was utilized to providethis telehealth service. * Verbal consent was requested and obtained from YOLI ANTUNEZ on this date, 08/13/2022 03:15 PM, for a telehealth visit. [facility] [address] Work Phone: 1(246) 455-131004-11-2023 Chief complaint Narrative - Reported* An interactive audio and video telecommunication system which permits real time communications between the patient (at the originating site) and provider (at the distant site) was utilized to providethis telehealth service. * Verbal consent was requested and obtained from YOLI JOHNSON on this date, 07/31/2022 12:30 PM, for a telehealth visit. * Swallow ND-Czwr[facility]un[facility] Work Phone: [phone]) 398-378104-11-2023 History of Present illness Narrative* 67 year [...] esophagus and pill sticking in the vallecula EM-Yuqcsdpcaadndp-Bwpynhw Work Phone: [phone] Miscellaneous Notes* Telephone Encounter - Jonathan Pascual - 07/30/2022 3:40 PM EDT Received call from patient regarding Message Per Patient Local ERs do not understand patients symptoms, would like to know if he can receive response from provider urgently * Telephone Encounter - Jessica Mccoy Pss - 07/30/2022 3:13 PM EDT Patient last seen 05/31/2022, but had infusions 07/26/2022. documented [facility]-2023 NoteHNO ID: [id number] Author: Eleonora Cabral RN Service: ? Author [...] with infusion , instructed on 45 day follow-up.[facility]04-06-2023 History of Present illness Narrative* Eleonora Cabral RN - 07/26/2022 1:52 PM EDT 13:35 Patient admitted to infusion unit and history reviewed, medications and allergies updated. Patient has 3/10 headache and no nausea, no dizziness at this time. Patient has first Vyepti infusion of 100 mg. 1424 Patinet discharged no problems with infusion , instructed on 45 day follow-up. documented in this encounterSalem [facility]04-03-2023 Miscellaneous Notes* Telephone Encounter - Fadumo Mckenzie - 07/23/2022 11:46 AM EDT Patient last seen on 05/31/22. Asked to follow up with Infusions. documented in this encounterSalem [facility] Center03-24-2023 Miscellaneous Notes* Telephone Encounter - Sarbjit Richardson APRN.CNP - 07/13/2022 4:04 PM EDT There are no results in [facility] from [facility] in imaging. When did he have them done? Can they fax the results and send the disc. Sarbjit documented in this encounterSalem [facility] Center02-13-2023 Miscellaneous Notes* Telephone Encounter - Sarbjit Richardson APRN.CNP - 06/04/2022 12:48 PM EST Orders for MRA/MRV to be mailed to patient. Sarbjit Richardson APRN.CNP documented in this encounterSalem [facility] Center02-09-2023 Instructions* Patient Instructions* Sarbjit Richardson APRN.CNP - 05/31/2022 9:01 AM EST Greater Occipital Nerve Block Article in [employer] Journal By: Bhavesh Boyd MD Many patients with chronic headache report that their pain typically arises from the neck or, more specifically, the base of the skull. Often that pain arises on one side or the other and extends forward to involve the top of the head, the hinduism, the forehead, the eye or some combination [...] give it at least one more try. https://americanheadachesociety.org/wp-content/uploads//Sfbwqfszf-Oyqfq-K locks_Aug-2009.pdf documented in this encounterSalem [facility] Center02-09-2023 History of Present illness Narrative* Sarbjit Richardson APRN.RESTAURANT GENERAL MANAGER - 05/31/2022 8:00 AM EST Headache [facility] Follow up visit May 31, 2022 Chief [...] unrevealing and negative. I sent patient a [place] message with this information and we can try [facility] to see if this is migrainous [...] other than aphasia. He was seen at [facility] for this previously (2020 note, migraine), and follows w/ Neurologist Dr. Wolff in [place]. 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 Policy Manager (topogram) images: No additional findings. 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 Short and manager terminal memory, cognition and general fund of knowledge [...] Care Visit completed when applicable. Sarbjit Richardson APRN.RESTAURANT GENERAL MANAGER The risks, benefits and anticipated outcomes of [...] which included preparing to see the patient, smcr-ch-aiom patient care, completing clinical documentation, obtaining and/or reviewing separately obtained history, performing a medically appropriate examination, counseling and educating the patient/family/caregiver, and ordering medications, tests, or procedures. Sarbjit Richardson APRN.NEETU Headache Section [facility] May 31, 2022 documented in this encounterSalem [facility] Center09-16-2022 History of Present illness Narrative* Paul Atkins [...] discharge. Tad Corea MD Internal medicine, PGY-2 [facility] @TODAY@ 10:53 AM Attending Physician [...] MD Nephrology Attending Physician [facility] 01/05/2022 * Dariela Walker MD - 01/05/2022 10:40 AM EDT Images from the original note were not included. [facility] Office: [phone] Mehdi Mcallister DO, Meliton Willard DO, Vicente [...] MD, Shefali Mcdonnell MD, Dariela Walker MD, Shashi Kiser DO, Cornelia George MD, Octaviano Bolden MD, Julia Vasquez, RESTAURANT GENERAL MANAGER, Joanne Hameed, RESTAURANT GENERAL MANAGER, Jazmine Huitron, RESTAURANT GENERAL MANAGER, Tono Braun, RESTAURANT GENERAL MANAGER, Annie Quijano, DNP, Brunilda Fuller, RESTAURANT GENERAL MANAGER, Andria Rutherford, RESTAURANT GENERAL MANAGER, Akila Franks, RESTAURANT GENERAL MANAGER, Shivani Rascon, RESTAURANT GENERAL MANAGER, Mayte Martinez, RESTAURANT GENERAL MANAGER, Aliya Reyes PA-C, Esha Kumari, POLICE AIDE, Monica Levy, DNP, Marifer Dunne, RESTAURANT GENERAL MANAGER, Rosie Longoria, RESTAURANT GENERAL MANAGER, Nohelia Morris, RESTAURANT GENERAL MANAGER [facility] IN-PATIENT SERVICE [facility] Progress Note Name: Yoli Antunez Acct: [id number] Room: 0318/0318-01 IP Day: 5 Admit Date: [...] improved to 2.5, bicarb 25 Brief History: 73-tmkf-djg-year-old with prior history of CKD 3, hypertension, prior TIA, paroxysmal A. fib, aortic root aneurysm presented with right lower quadrant and flank pain, initially started on 12/28/2021 when he was evaluated at [facility]. Imaging suggested possible epiploic appendicitis versus small [...] by Darline Walden MD S/p egd at counts include 234 beds at the [facility] 08/2020 Plan: S/p cholecystectomy day3 -Continue [...] 141/80 123/75 Pulse: 76 73 Resp: 16 16 Temp: 98.3 F (36.8 C) TempSrc: [...] INVESTIGATIONS Last 3 CMP: Recent Labs 01/02/22 0501/02/22 1716 01/03/22 0547 01/04/22 0342 NA 141 [...] been identified and corrected by editing Spencer Kasmani, MD MD, MRCP (), FACP 01/04/2022 1:31 PM [facility] * Dariela Walker MD - 01/04/2022 10:45 AM EDT Images from the original note were not included. [facility] Office: [phone] Mehdi Mcallister DO, Meliton Willard DO, Vicente [...] MD, Shefali Mcdonnell MD, Dariela Walker MD, Shashi Kiser DO, Cornelia George MD, Octaviano Bolden MD, Julia Vasquez, NEETU, Joanne Hameed, RESTAURANT GENERAL MANAGER, Jazmine Huitron, RESTAURANT GENERAL MANAGER, Tono Braun, RESTAURANT GENERAL MANAGER, Annie Quijano, KENYA, Brunilda Fuller, RESTAURANT GENERAL MANAGER, Andria Rutherford, RESTAURANT GENERAL MANAGER, Akila Franks, RESTAURANT GENERAL MANAGER, Shivani Rascon, RESTAURANT GENERAL MANAGER, Mayte Martinez, RESTAURANT GENERAL MANAGER, BLANCHE Nelson-Leatha, Esha Kumari, POLICE AIDE, Monica Levy, DNP, Marifer Dunne, RESTAURANT GENERAL MANAGER, Rosie Longoria, RESTAURANT GENERAL MANAGER, Nohelia Morris, RESTAURANT GENERAL MANAGER [facility] IN-PATIENT SERVICE [facility] Progress Note Name: Yoli Antunez Acct: [id number] Room: 0318/0318-01 IP Day: 4 Admit Date: 12/31/2021 11:15 PM PCP: Radha Price MD Code Status: Full Code Subjective: C/C: nausea,vomiting, fevers Interval History Status: improved. Patient indicates doing well no nausea vomiting. Continues to have left upper quadrant pain intermittently. No flatus or bowel movement yet . hemodynamically stable. Creatinine improved to 3.07 WBC 12.2 Brief History: 53-grrd-cse-year-old with prior history of CKD 3, hypertension, prior TIA, paroxysmal A. fib, aortic root aneurysm presented with right lower quadrant and flank pain, initially started on 12/28/2021 when he was evaluated at [facility]. Imaging suggested possible epiploic appendicitis versus small [...] Net -1900 ml Labs: Hematology: Recent Labs 01/02/2252101/03/22 0547 01/04/22 0936 WBC 12.2* 12.5* 12.2* [...] by Darline Walden MD S/p egd at counts include 234 beds at the [facility] 08/2020 Plan: S/p cholecystectomy day2 -Continue [...] Dariela Walker MD 01/04/2022 * Bhavesh Gunter, DO - 01/04/2022 8:05 AM EDT Images [...] GLUCOSE 106* 122* 138* COAGS: Recent Labs 01/02/2222 01/03/22 0547 PROT 6.1* 6.7 RADIOLOGY: CXR: [...] EDT Physician Progress Note PATIENT: YOLI ANTUNEZ [facility] #: [id number] : 1955 ADMIT DATE: 12/31/2021 11:15 PM [...] labs. Thank you for your time, Jennie ROBLES, RN CDS. Please call/text/PS with any questions; [phone]. Options provided: -- Sepsis, present on admission [...] Walker MD 01/03/2022 4:35 PM * Janet Ford APRN - RESTAURANT GENERAL MANAGER - 01/03/2022 2:02 PM EDT [facility] Progress Note Yoli Antunez is a [...] results for input(s): LABIRON, TIBC, IRON, FERRITIN, [id number], FOLATE, OCCULTBLD in the last 72 hours. [...] of your patient. Janet Ford APRN - NEETU [place], [place] Please note that this note was generated using a voice recognition dictation software. Although every effort was made to ensure the accuracy of this automated network security consultant, some errors in network security consultant may have occurred. Associated attestation - Juan [...] and primary team. Juan David Marr MD [facility] [place], [place] * Dariela Walker MD - 01/03/2022 9:30 AM EDT Images from the original note were not included. [facility] Office: [phone] Mehdi Mcallister DO, Meliton Willard DO, Vicente [...] MD, Shefali Mcdonnell MD, Dariela Walker MD, Shashi Kiser DO, Cornelia George MD, Octaviano Bolden MD, Julia Vasquez, NEETU, Joanne Hameed CNP, Jazmine Huitron, RESTAURANT GENERAL MANAGER, Tono Braun, RESTAURANT GENERAL MANAGER, Annie Quijano, KENYA, Brunilda Fuller, RESTAURANT GENERAL MANAGER, Andria Rutherford, RESTAURANT GENERAL MANAGER, Akila Franks, RESTAURANT GENERAL MANAGER, Shivani Rascon, RESTAURANT GENERAL MANAGER, Mayte Martinez, RESTAURANT GENERAL MANAGER, BLANCHE Nelson-Leatha, Esha Kumari, POLICE AIDE, Monica Levy, KENYA, Marifer Dunne, RESTAURANT GENERAL MANAGER, Rosie Longoria, RESTAURANT GENERAL MANAGER, Nohelia Morris, RESTAURANT GENERAL MANAGER [facility] IN-PATIENT SERVICE [facility] Progress Note Name: Yoli Antunez Acct: [id number] Room: 0318/0318-01 Day: 3 Admit Date: 12/31/2021 [...] improved, lipase improved to 250 Brief History: 89-ktvh-lhk-year-old with prior history of CKD 3, hypertension, prior TIA, paroxysmal A. fib, aortic root aneurysm presented with right lower quadrant and flank pain, initially started on 12/28/2021 when he was evaluated at [facility]. Imaging suggested possible epiploic appendicitis versus small [...] Labs: Hematology: Recent Labs 01/01/22 0546 01/01/22 0701/02/22 0522 01/03/22 0547 WBC -- 16.8* 12.2* [...] 01/01/22 0546 01/01/22 0701/01/22 1017 01/01/22 1207 01/02/22 [...] results found for: POCPH, PHART, PH, POCPCO2, NZG2UPX, PCO2, POCPO2, PO2ART, PO2, POCHCO3, VTU1DQH, HCO3, NBEA, PBEA, BEART, BE, THGBART, THB, QSO5AOT, EVFY6MZN, Z9FXBZZP, O2SAT, FIO2 Lab Results Component Value Date/Time [...] by Darline Walden MD S/p egd at counts include [facility] beds at [facility] 08/2020 Plan: S/p cholecystectomy day1 -Was [...] ultrasound. No hydronephrosis. Attestation signed by Kee tSevens MD I personally evaluated the patient and [...] from the original note were not included. [facility] Office: [phone] Mehdi Mcallister DO, Meliton Willard DO, Vicente [...] MD, Shefali Mcdonnell MD, Dariela Walker MD, Shashi Kiser DO, Cornelia George MD, Octaviano Bolden MD, Julia Vasquez, RESTAURANT GENERAL MANAGER, Joanne Hameed, RESTAURANT GENERAL MANAGER, Jazmine Huitron, RESTAURANT GENERAL MANAGER, Tono Braun, RESTAURANT GENERAL MANAGER, Annie Quijano, DNP, Brunilda Fuller, RESTAURANT GENERAL MANAGER, Andria Rutherford, RESTAURANT GENERAL MANAGER, Akila Franks, RESTAURANT GENERAL MANAGER, Shivani Rascon, RESTAURANT GENERAL MANAGER, Mayte Martinez, RESTAURANT GENERAL MANAGER, BLANCHE Nelson-C, Esha Kumari, POLICE AIDE, Monica Levy, DNP, Marifer Dunne, RESTAURANT GENERAL MANAGER, Rosie Longoria, RESTAURANT GENERAL MANAGER, Nohelia Morris, RESTAURANT GENERAL MANAGER [facility] IN-PATIENT SERVICE [facility] Progress Note Name: Yoli Antunez Acct: [id number] Room: 0318/0318-01 IP Day: 2 Admit Date: [...] showed no hydronephrosis. Hemodynamically stable Brief History: 81-ynov-fyj-year-old with prior history of CKD 3, hypertension, prior TIA, paroxysmal A. fib, aortic root aneurysm presented with right lower quadrant and flank pain, initially started on 12/28/2021 when he was evaluated at [facility]. Imaging suggested possible epiploic appendicitis versus small [...] 0546 01/01/22 0727 01/01/22 1017 01/01/22 1207 01/02/22521 NA 139 140 138 -- -- 141 K 4.4 4.5 4.4 -- -- 4.6 CL 106 109* 107 -- -- 109* CO2 19* 18* 19* -- -- 18* GLUCOSE 114* 106* 109* -- -- 106* BUN 58* 59* 59* -- -- 63* CREATININE 3.73* 3.86* 3.74* -- -- 4.02* MG 1.7 1.7 -- -- -- -- ANIONGAP 14 12 -- -- 14 LABGLOM 16* 16* [...] results found for: POCPH, PHART, PH, POCPCO2, SXG4GQN, PCO2, POCPO2, PO2ART, PO2, POCHCO3, MCF8DTT, HCO3, NBEA, PBEA, BEART, BE, THGBART, THB, FWJ2QSZ, XTNC3XZN, Y7MMCHVR, O2SAT, FIO2 Lab Results Component Value Date/Time [...] by Darline Walden MD S/p egd at counts include [facility] beds at [facility] 08/2020 Plan: S/p cholecystectomy day0 - [...] Islas MD - 01/02/2022 9:29 AM EDT [facility] Gastroenterology Progress Note Yoli Antunez is a [...] results for input(s): LABIRON, TIBC, IRON, FERRITIN, CJABDQRK75, FOLATE, OCCULTBLD in the last 72 hours. [...] Rachel Islas MD Internal medicine resident, PGY1 [place], [place] Please note that this note was generated using a voice recognition dictation software. Although every effort was made to ensure the accuracy of this automated network security consultant, some errors in network security consultant may have occurred. Associated attestation - Juan [...] confirmed. Leonel Matos MD * Sara Villalobos RP - 01/01/2022 10:23 AM EDT Pharmacy Note [...] original note were not included. Occupational Therapy [facility] Occupational Therapy Not Seen Note DATE: 01/01/2022 NAME: Yoli Antunez : 1955 Patient not seen this date for Occupational Therapy due to: Patient independent with ADLs and functional tasks with no acute OT needs. Will defer OT evaluationat this time. Please reorder OT if future needs arise. Next Scheduled Treatment: N/A * Aydee Smart RN - 01/01/2022 8:52 AM EDT Talked to [facility] cardiac and they said his loop recorder was put in November 09 and it is a [employer] device model m301 LUX-DX. MRI notified. documented in this encounterBON COBALT REHABILITATION ([facility]) HOSPITALAire[facility] [employer] Work Phone: 1(921) 293-155809-16-2022 Hospital course Narrative* Dariela Walker MD - 01/05/2022 2:37 PM EDT Images from the original note were not included. [facility] Office: [phone] Mehdi Mcallister DO, Meliton Willard DO, Vicente [...] MD, Shefali Mcdonnell MD, Dariela Walker MD, Shashi Kiser DO, Cornelia George MD, Octaviano Bolden MD, Julia Vasquez, RESTAURANT GENERAL MANAGER, Joanne Hameed, RESTAURANT GENERAL MANAGER, Jazmine Huitron, RESTAURANT GENERAL MANAGER, Tono Braun, RESTAURANT GENERAL MANAGER, Annie Quijano, DNP, Brunilda Fuller, RESTAURANT GENERAL MANAGER, Andria Rutherford, RESTAURANT GENERAL MANAGER, Akila Franks, RESTAURANT GENERAL MANAGER, Shivani Rascon, RESTAURANT GENERAL MANAGER, Mayte Martinez, RESTAURANT GENERAL MANAGER, BLANCHE Nelson-Leatha, Esha Kumari, POLICE AIDE, Monica Levy, DNP, Marifer Dunne, RESTAURANT GENERAL MANAGER, Rosie Longoria, RESTAURANT GENERAL MANAGER, Nohelia Morris, RESTAURANT GENERAL MANAGER [facility] IN-PATIENT SERVICE [facility] Discharge Summary Patient ID: Yoli Antunez : 1955 ACCOUNT: [id number] Patient's PCP: Radha Price MD Admit Date: [...] Discharged Condition: good Hospital Stay: Hospital Course: 22-wsdq-hhs-year-old with prior history of CKD 3, hypertension, prior TIA, paroxysmal A. fib, aortic root aneurysm presented with right lower quadrant and flank pain, initially started on 12/28/2021 when he was evaluated at [facility]. Imaging suggested possible epiploic appendicitis versus small [...] Discharge plan: Disposition: Home Physician Follow Up: [address] [facility] [address] Schedule an appointment as soon as possible for a visit on 01/16/2022 For wound re-check post op from your Lap Ivy Campos MD [address] [facility] [address] [facility] [address] Follow up in 1 month(s) Diet: regular [...] Your Medications These medications were sent to [address] - P [phone] - F [phone] [facility] [address] ciprofloxacin 500 MG tablet dilTIAZem 120 MG [...] involved in this patient'scare. documented in this encounterBANNER ProxTo[employer] Phone: [phone] 308-111909-14-2022 Hospital Discharge instructions* Discharge Instructions* Sudheer Foote [...] be called to the nurse line at [phone] and please leave a message. * Attachments The following attachments cannot be sent through Care Everywhere. * Pancreatitis: Acute: General Info (Eritrean) documented in this encounterWHITINSVILLE HOSPITALeHealth Technologies™ Phone: 1(958) 827-996707-28-2022 NotePROCEDURE: XR FOOT LT MIN 3 VIEWS [...] Electronically authenticated by: DONNELL DU Date: 2021-11-16 08:26[facility]06-13-2022 Evaluation note* Encounter Date Diagnosis Assessment [...] to call the office if symptoms return [facility] Other 05-11-2022 Evaluation note* Encounter Date Diagnosis [...] - G89.29) Continue with current treatment plan [facility] Other 04-14-2022 Evaluation note* Encounter Date Diagnosis [...] - G89.29) Continue with current treatment plan [facility] Other 01-10-2022 History of Present illness Narrative* Frances Sam [...] 01, 2021 8:21 AM documented in this encounterSal[facility]06-[facility] History of Present illness Narrative* Dysphagia with [...] for complaint except as noted in HPI. [facility] [address] Work Phone: 1([phone]) 462-252906-01-2020 History of Present illness Narrative* Dysphagia with [...] for complaint except as noted in HPI. GH-Hxplgkmpnjtzgh-[employer] [employer] Work Phone: 1([phone]) 188-799906-01-2020 History of Present illness Narrative* 67 year [...] for complaint except as noted in HPI. [facility]oy[facility] Work Phone: 1([phone]) 729-869506-01-2020 History of Present illness Narrative* Dysphagia with [...] for complaint except as noted in HPI. [facility] [address] Work Phone: 1(251) 168-727801-30-2019 History and physical note Author Charlene Soria [facility] April 16, 2023 10:45am Note Date/Time April 16, 2023 10:45am [facility] [address] [place] [address] Gastroenterology H&P Signed Patient: Yoli Antunez Jr MR#: [id number] : 1955 Acct:[id number] Age/Sex: 67 / M Adm Date: 3 Loc: Room: Type: [facility] Attending Dr: Charlene Soria MD Copies to: [...] is an appropriate candidate for the procedure. Imad Asaad, M.D. Documented By: Charlene Soria MD 04/16/23 1044 Signed By: <Electronically signed by Charlene Soria MD> 04/16/23 1045 [facility] Work Phone: Consult note* Clinical Note Date No Information [facility] Work Phone: Discharge summary* Clinical Note Date No Information [facility] Work Phone: Evaluation noteNo [employer] Other Evaluation note* Diagnosis Gall stone pancreatitis- [...] acidosis Acidosis documented in this encounter [facility] Work Phone: evaluation note* Diagnosis Chronic migraine without aura, intractable, without status migrainosus- Primary Aphasia Other specified transient cerebral ischemias [facility] Diagnosis Chronic migraine without aura, with intractable migraine, so stated, with status migrainosus- Primary [facility]* Diagnosis Chronic migraine without aura, with intractable migraine, so stated, with status migrainosus- Primary [facility]* Diagnosis Autonomic dysfunction- Primary Unspecified disorder of autonomic nervous system Dizzy spells Dizziness and giddiness documented in this encounter [facility] note* Diagnosis Diarrhea, unspecified type- Primary Left lower quadrant abdominal pain documented in this encounter [facility] Work Phone: Evaluation note* Diagnosis Disturbance of skin sensation- Primary [facility] Diagnosis Left lower quadrant abdominal pain documented in this encounter [facility] Work Phone: Evaluation note* Diagnosis Dysphagia, [...] Obstructive sleep apnea (adult) (pediatric) 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, 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 of aspirin Personal history of transient ischemic attack (TIA), and cerebral infarction without residual deficits Personal history of nicotine dependence Allergy status to penicillin documented in this encounter [facility] Work Phone: Evaluation note* Diagnosis Obstructive [...] other antibiotic agents documented in this encounter [facility] Work Phone: Evaluation noteNo assessment information available [facility] Work Phone: Evaluation note* Diagnosis Orthostatic hypotension- Primary [place]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) [facility] Diagnosis Shortness of breath documented in this encounter [facility]* Type Assessment Date No Information [facility] Work Phone: Evaluation note* Diagnosis Anxiety- Primary Anxiety state, unspecified Dermatitis Contact dermatitis and other eczema, due to unspecified cause Paroxysmal atrial fibrillation ([facility]) Atrial fibrillation [facility] Diagnosis Anxiety- Primary Anxiety state, unspecified Dermatitis Contact dermatitis and other eczema, due to unspecified cause Paroxysmal atrial fibrillation ([facility]/HCC) Atrial fibrillation 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 ([facility]) Acquired hypothyroidism ([facility]) Unspecified hypothyroidism documented in this encounter [facility] Diagnosis Anxiety- Primary Anxiety state, unspecified Dermatitis Contact dermatitis and other eczema, due to unspecified cause Paroxysmal atrial fibrillation ([facility]/HCC) Atrial fibrillation 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 ([facility]) Arteriosclerosis of coronary artery ([facility])- Primary Atypical angina ([facility]) Other and unspecified angina pectoris documented in this encounter [facility]* Diagnosis Anxiety- Primary Anxiety state, unspecified Dermatitis Contact dermatitis and other eczema, due to unspecified cause Paroxysmal atrial fibrillation ([facility]) Atrial fibrillation 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 ([facility]) Dermatitis- Primary Contact dermatitis and other eczema, due to unspecified cause documented in this encounter [facility]* Diagnosis Diarrhea, unspecified type- Primary Autonomic dysfunction Angina at rest ([facility]) Other and unspecified angina pectoris documented in this encounter [facility]* Diagnosis Dermatitis- Primary Contact dermatitis and other eczema, due to unspecified cause Chronic kidney disease, stage 3a (HCC) ([facility]) Atherosclerosis of aorta ([facility]) Atherosclerosis of aorta Thoracic aortic ectasia ([facility]) Thoracic aortic ectasia documented in this [facility]* Diagnosis Irritant contact dermatitis due to other agents- Primary documented in this encounter [facility]* Diagnosis Anxiety- Primary Anxiety state, unspecified Dermatitis Contact dermatitis and other eczema, due to unspecified cause Paroxysmal atrial fibrillation ([facility]) Atrial fibrillation 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 ([facility]) Restless leg- Primary Restless legs syndrome (RLS) documented in this encounter [facility]* Diagnosis Anxiety- Primary Anxiety state, unspecified Dermatitis Contact dermatitis and other eczema, due to unspecified cause Paroxysmal atrial fibrillation ([facility]/HCC) Atrial fibrillation Other thrombophilia (CMS/HCC) Postprocedural hypoparathyroidism (CMS/HCC) Acquired hypothyroidism ([facility]/HCC) Unspecified hypothyroidism documented in this [facility]* Diagnosis Anxiety- Primary Anxiety state, unspecified Dermatitis Contact dermatitis and other eczema, due to unspecified cause Paroxysmal atrial fibrillation (CMS/HCC) Atrial fibrillation Other thrombophilia (CMS/HCC) Postprocedural hypoparathyroidism ([facility]) Ptosis of both eyelids- Primary Unspecified ptosis of eyelid documented in this encounter [facility]* Diagnosis Anxiety- Primary Anxiety state, unspecified Dermatitis Contact dermatitis and other eczema, due to unspecified cause Paroxysmal atrial fibrillation (CMS/HCC) Atrial fibrillation Other thrombophilia (CMS/HCC) Postprocedural hypoparathyroidism ([facility]/HCC) Restless legs syndrome- Primary Restless legs syndrome (RLS) POTS (postural orthostatic tachycardia syndrome) Unspecified tachycardia Aneurysm of ascending aorta without rupture ([facility]) Coronary artery disease involving [place] heart, unspecified vessel or lesion type, unspecified whether angina present ([facility]/HCC) Paroxysmal atrial fibrillation ([facility]/HCC) Atrial fibrillation Essential hypertension ([facility]) Unspecified essential hypertension Presence of Watchman left atrial appendage closure device Transient ischemic attack Unspecified transient cerebral ischemia Gastroesophageal reflux disease without esophagitis Esophageal reflux Benign prostatic hyperplasia with urinary obstruction Stage 3a chronic kidney disease (HCC) ([facility]) 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) Vitamin D deficiency Chronic migraine without aura, with intractable migraine, so stated, with status migrainosus ([facility]/HCC) Chronic migraine without aura, with intractable migraine, so stated, with status migrainosus Meniere's disease, unspecified laterality Acquired ptosis of right eyelid Acquired hypothyroidism ([facility]/HCC) Unspecified hypothyroidism History of smoking Personal history of tobacco use, presenting hazards to health Bronchiectasis, uncomplicated (CMS/HCC) Chronic combined systolic (congestive) and diastolic (congestive) heart failure ([facility]/HCC) ADA (obstructive sleep apnea) Obstructive sleep apnea (adult) (pediatric) Medicare annual wellness visit, subsequent documented in this encounter [facility]* Diagnosis Anxiety- Primary Anxiety state, unspecified Dermatitis Contact dermatitis and other eczema, due to unspecified cause Paroxysmal atrial fibrillation (CMS/HCC) Atrial fibrillation Other thrombophilia (CMS/HCC) Postprocedural hypoparathyroidism (CMS/HCC) Acquired hypothyroidism (CMS/HCC) Unspecified hypothyroidism documented in this encounter [facility]* Diagnosis Anxiety- Primary Anxiety state, unspecified Dermatitis Contact dermatitis and other eczema, due to unspecified cause Paroxysmal atrial fibrillation (CMS/HCC) Atrial fibrillation Other thrombophilia (CMS/HCC) Postprocedural hypoparathyroidism (CMS/HCC) Weakness- Primary Other malaise and fatigue Acquired ptosis of right eyelid Cranial neuropathy Unspecified disorder of cranial nerves documented in this encounter [facility]* Diagnosis Anxiety- Primary Anxiety state, unspecified Dermatitis Contact dermatitis and other eczema, due to unspecified cause Paroxysmal atrial fibrillation (CMS/HCC) Atrial fibrillation Other thrombophilia (CMS/HCC) Postprocedural hypoparathyroidism (CMS/HCC) Postsurgical hypoparathyroidism (CMS/HCC)- Primary Low serum parathyroid hormone (PTH) Hypocalcemia Vitamin D deficiency Postoperative hypothyroidism (CMS/HCC) Postsurgical hypothyroidism documented in this encounter [facility]* Diagnosis Anxiety- Primary Anxiety state, unspecified Dermatitis Contact dermatitis and other eczema, due to unspecified cause Paroxysmal atrial fibrillation (CMS/HCC) Atrial fibrillation Other thrombophilia Postprocedural hypoparathyroidism (CMS/HCC) Low serum parathyroid hormone (PTH)- Primary Hypocalcemia Vitamin D deficiency Postoperative hypothyroidism (CMS/HCC) Postsurgical hypothyroidism Postsurgical hypoparathyroidism (CMS/HCC) Stage 3a chronic kidney disease (HCC) (CMS/HCC) documented in this encounter [facility]* Diagnosis Anxiety- Primary Anxiety state, unspecified Dermatitis Contact dermatitis and other eczema, due to unspecified cause Paroxysmal atrial fibrillation (CMS/HCC) Atrial fibrillation Other thrombophilia Postprocedural hypoparathyroidism (CMS/HCC) Cranial neuropathy- Primary Unspecified disorder of cranial nerves Weakness Other malaise and fatigue documented in this encounter [facility]* Diagnosis Anxiety- Primary Anxiety state, unspecified Dermatitis Contact dermatitis and other eczema, due to unspecified cause Paroxysmal atrial fibrillation (CMS/HCC) Atrial fibrillation Other thrombophilia Postprocedural hypoparathyroidism (CMS/HCC) Dental infection- Primary Dental infection documented in this encounter [facility]* Clinical Note Date No Information [facility] Work Phone: History general Narrative - Reported* [...] Hospitalization History see above Hospitalization History cardiac [facility] Other History of Present illness Narrative* Patient [...] and contact clinician with any concerns. [facility] [address] [place] Work Phone: History of Present illness Narrative* Mr. ANTUNEZ , 1955, referred for an initial consultation with me but established with this practice, with a long history of waking up feeling unrefreshed, excessive daytime fatigue. * Logan Sleepiness Scale Score is 16 /24. Fatigue [...] / 20 * Nasal Obstruction VAS- 0/10 [id number] Work Phone: Hospital Discharge instructions [...] -Follow up pathology -Follow up in the [facility] Work Phone: Instructions* Date Instruction Additional Infor mation No Information [facility] [place] Work Phone: Progress note* Clinical Note Date No Information [facility] [place] Work Phone: Reason for referral (narrative)* Reason For Referral No Information [facility] [place] Work Phone: Reason for referral (narrative)* Consultation (Routine) - Authorized Specialty Diagnoses / Procedures Referred By Yeny thurston Referred To Contact Gastroenterology Diagnoses Diarrhea, unspecified type Procedures HI OFFICE/OUTPATIENT [facility] 60 MINUTES Radha Burris MD [address] [place] [address] Michelle Gilmore MD [address] [place] [address] Referral ID Status Reason Start Date Expiration Date Visits Requested Visits Authorized [id number] Authorized Specialty Services Required 12/24/2023 06/21/2024 1 1 [facility] for [facility] Narrative* Consultation (Routine) - Closed Specialty Diagnoses / Procedures Referred By Contac t Referred To Contact Neurology Diagnoses Acquired ptosis of right eyelid Procedures HI OFFICE/OUTPATIENT NEW HIGH MDM 60 MINUTES Eleonora Leo ASSISTANT HEAD CASHIER [address] [place] [address] Phone: tel: fax: Ranjana Mack DO [address] [place] [address] Phone: tel: fax: Referral ID Status Reason Start Date Expiration Date V isits Requested Visits Authorized [id number] Closed Consult and Treat 06/09/2024 12/06/2024 1 1 [facility] Summary Purpose Family History No Family History [...] Age At Onset No Information Advance Directives No Advanced Directives Records FoundDocuments on File Type Date Recorded 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 ACP-Advance Directive ACP-Power of Supervisor Wheel [employer] Latest Code Status on File Code Status [...] Referral Specialty Diagnoses / Procedures Referred By Yeny t Referred To Contact CT IMAGING Diagnoses Shortness of breath Procedures CT CHEST WO IVCON CAT SCAN OF CHEST Cameron Harmon MD [address] [place] [address] [place] [address] Referral ID Status Reason Start Date Expiration Date V isits Requested Visits Authorized [id number] Closed Auto-Generate d Referral 04/05/2021 05/05/2022 1 1 Specialty Diagnoses / Procedures Referred By Contac t Referred To Contact Radiology Diagnoses Left lower quadrant abdominal pain Procedures CT abdomen pelvis w IV contrast Yossi Chen MD [address] [place] [address] Referral ID Status Reason Start Date Expiration Date Visits Requested Visits Authorized [id number] Authorized Perform Procedure 3 07/30/2023 1 1 Specialty Diagnoses / Procedures Referred By Contac t Referred To Contact Neurology Diagnoses Autonomic dysfunction Dizzy spells Procedures CONSULT TO NEUROLOGY OFFICE/OUTPATIENT [facility] 60-74 MINUTES Sarbjit Richardson, DIRECTOR PAYER.RESTAURANT GENERAL MANAGER [address] [place] [address] Referral ID Status Reason Start Date Expiration Date Visits Requested Visits Authorized [id number] Authorized PCP Requested Referral 12/31/2022 12/31/2023 1 1 Specialty Diagnoses / Procedures Referred By Contac t Referred To Contact MR IMAGING Diagnoses Chronic migraine without aura, intractable, without status migrainosus Aphasia Other specified transient cerebral ischemias Procedures MRV BRAIN WO IVCON MRA, HEAD W/O CONTRAST Sarbjit Richardson, DIRECTOR PAYER.RESTAURANT GENERAL MANAGER [address] [place] [address] Mr Imaging Referral ID Status Reason Start Date Expiration Date Visits Requested Visits Authorized [id number] Pending Review Auto-Generat ed Referral 05/31/2022 06/30/2023 1 1 Specialty Diagnoses / Procedures Referred By Contac t Referred To Contact MR IMAGING Diagnoses Chronic migraine without aura, intractable, without status migrainosus Aphasia Other specified transient cerebral ischemias Procedures MRA BRAIN WO IVCON MRA, HEAD W/O CONTRAST Sarbjit Richardson, DIRECTOR PAYER.RESTAURANT GENERAL MANAGER [address] [place] [address] Mr Imaging Referral ID Status Reason Start Date Expiration Date Visits Requested Visits Authorized [id number] Pending Review Auto-Generat ed Referral 05/31/2022 06/30/2023 [...] (10 mL), OTHER, ONCE, 1 dose, On Sat05/31/22 at 0930 Given 05/31/2022 9:30 AM EST [...] Complaint Diarrhea Chief Complaint Diarrhea/Hiatal Misael is//Ref Ahmet Diarrhea R10.9 R19.7 Additional Source [...] section and content) DATE CREATED AUTHOR 05/02/2018 [facility] DATE CREATED AUTHOR AUTHOR'S ORGANIZ ATION 03/12/2020 [facility] DATE CREATED AUTHOR AUTHOR'S ORGANIZ ATION 10/28/2020 [facility] DATE CREATED AUTHOR AUTHOR'S ORGANIZ ATION 05/25/2021 [facility] DATE CREATED AUTHOR AUTHOR'S ORGANIZ ATION 12/23/2021 [facility] DATE CREATED AUTHOR AUTHOR'S ORGANIZ ATION 01/17/2022 [facility] DATE CREATED AUTHOR AUTHOR'S ORGANIZ ATION 04/18/2022 [facility]ical Specialist DATE CREATED AUTHOR AUTHOR'S ORGANIZ ATION 06/07/2022 [facility] DATE CREATED AUTHOR AUTHOR'S ORGANIZ ATION 08/28/2022 [facility] DATE CREATED AUTHOR AUTHOR'S ORGANIZ ATION 10/26/2022 [facility] DATE CREATED AUTHOR AUTHOR'S ORGANIZ ATION 12/14/2022 [facility] DATE CREATED AUTHOR AUTHOR'S ORGANIZ ATION 12/14/2022 [facility] DATE CREATED AUTHOR AUTHOR'S ORGANIZ ATION 12/18/2022 [facility] DATE CREATED AUTHOR AUTHOR'S ORGANIZ ATION 02/02/2023 [facility] DATE CREATED AUTHOR AUTHOR'S ORGANIZ ATION 02/06/2023 [facility] DATE CREATED AUTHOR AUTHOR'S ORGANIZ ATION 06/02/2023 [facility] DATE CREATED AUTHOR AUTHOR'S ORGANIZ ATION 06/11/2023 [facility] DATE CREATED AUTHOR AUTHOR'S ORGANIZ ATION 12/28/2023 [facility] DATE CREATED AUTHOR AUTHOR'S ORGANIZ ATION 03/05/2024 [facility] DATE CREATED AUTHOR AUTHOR'S ORGANIZ ATION 08/06/2024 [facility] DATE CREATED AUTHOR AUTHOR'S ORGANIZ ATION 08/26/2024 [facility] EPIC DATE CREATED AUTHOR AUTHOR'S ORGANIZ ATION 09/01/2024 [facility] Reason for Visit (unrecogniz ed section and content) Reason Comments Infusion Headache Specialty Diagnoses / Procedures Referred By Contac t Referred To Contact Diagnoses Chronic migraine without aura, with intractable migraine, so stated, with status migrainosus Sarbjit Richardson, DIRECTOR PAYER.RESTAURANT GENERAL MANAGER [address] [place] [address] Neur Headache [address] [place] [address] Referral ID Status Reason Start Date Expiration Date V isits Requested Visits Authorized [id number] Authorized 05/31/2022 08/29/2022 99 99 Status Reason Specialty Diagnoses / Procedures Referred By Contact Referred To Contact Pending Review Infusion Therapy Diagnoses Migraine, unspecified, intractable, without status migrainosus Procedures HI INJ MAGNESIUM SULFATE HI LIDOCAINE INJECTION HI DEXAMETHASONE SODIUM PHOS HI DRUGS UNCLASSIFIED INJECTION Mayelin Wolff MD [address] [place] [address] Mal Op Infusion [address] [place] [address] Reason Comments Headache Reason Comments Received Outside Medical Records Reason Comments Results [facility] Reason Comments Follow-up Diarrhea Since hiatal hernia surgery. Reason Comments Results [facility] Specialty Diagnoses / Procedures Referred By Contac t Referred To Contact Radiology Diagnoses Left lower quadrant abdominal pain Procedures CT abdomen pelvis w IV contrast Yossi Chen MD [address] [place] [address] Referral ID Status Reason Start Date Expiration Date Visits Requested Visits Authorized [id number] Authorized Perform Procedure 3 07/30/2023 1 1 Reason Comments Other EGDANS - Emailed pre p on 08-23-2022 Reason Comments Other DRUG INDUCED SLEEP E NDOSCOPY Reason Comments Follow Up Reason Comments Radiology CT Specialty Diagnoses / Procedures Referred By Contac t Referred To Contact CT IMAGING Diagnoses Shortness of breath Procedures CT CHEST WO IVCON CAT SCAN OF CHEST Cameron Harmon MD [address] [place] [address] [place] [address] Referral ID Status Reason Start Date Expiration Date V isits Requested Visits Authorized [id number] Closed Auto-Generate d Referral 04/05/2021 05/05/2022 1 1 Reason Comments Follow-up Rash on both legs th e past couple months. Rash has stayed the same. [facility] on 01/29 patient went in for chest pain due to afib but chest pain has stopped since then. Reason Onset Date Comments Med Refill 02/06/2024 Reason Comments Establish Care Reason Comments Rash Behind both legs, fo r the past 3-4 weeks. Was using calamine lotion. Notices when he is scratching it will spread. Reason Comments Rash Reason Onset Date Comments Med Refill 05/18/2024 Reason Comments Medicare Annual Wellness Visit Corinne thurston Reason Comments Thyroid Problem PARATHYROID NEW REF/ LAB Specialty Diagnoses / Procedures Referred By Yeny t Referred To Contact Endocrinology Diagnoses Low serum parathyroid hormone (PTH) Procedures HI OFFICE/OUTPATIENT NEW HIGH MDM 60 MINUTES Eleonora Leo NP [address] [place] [address] Phone: tel: fax: Latoya Redding MD [address] [place] [address] Phone: tel: fax: Referral ID Status Reason Start Date Expiration Date Visits Requested Visits Authorized [id number] Pending Review Specialty Services Required 06/23/2024 12/20/2024 1 1 Reason Comments Follow-up PTH LAB Reason Comments Weakness, Gen Reason Comments Dental Injury Patient had tooth re moved two weeks ago Saturday at [facility] for tooth removal but the root traveled to sinus. Sx of right ear pain, and thick yellow mucus that started the next day. Has been taking ibuprofen 600mg 3-4 times daily. [facility] sent a couple of referrals to ENT, one called back but can not get him in till another week. Ordered Prescriptions (unrec ognized section and content) [...] Sosa RN)144 (Given - Provider: Soco Hdez RN)220 (Given - Provider: Agata Garcia RN) 0537 (Given - Provider: Agata Garcia RN)1355 (Given - Provider: Patty Evans)220 (Due) pramipexole (MIRAPEX) tablet 2 mg 2 mg, Oral, NIGHTLY, First dose (after last modification) on Sis 01/04/22 at 2100, Until Discontinued, Give 2-3 hours before bedtime. 2100 (Given - Provider: Ritu Sosa RN) 2032 (Given - Provider: Agata Garcia RN) 2100 (Due) sodium chloride flush 0.9 % injection [...] - Provider: Roly Delong RN - Reason: Contraindicated)2029 (Given - Provider: Ritu Sosa RN) 921 [...] Delong RN) 0027 (New Bag - Provider: Rtiu Sosa RN)1125 (New Bag - Provider: Soco [...]
Care Teams (unrecognized sec tion and content) Framing Specialist Relationship Specialty Start Date End Date Radha Price MD [address] [place] [address] [id number] PCP - General Family Medicine 10/01/17 Framing Specialist Relationship Specialty Start Date End Date Radha Burris MD [address] [place] [address] [id number] PCP - General Internal Medicine 01/14/20 Esther Grey, DO [address] [place] [address] Physician Electrophysiology 01/26/20 Framing Specialist Relationship Specialty Start Date End Date Radha Burris [address] [place] [phone] PCP - General Family Medicine 10/09/17 Elian Ceballos MD [address] [place] [address] Primary Staff Physician Cardiology 12/01/20 Herminia Roland MD [address] [place], [place] [phone] Primary Staff Physician Cardiology 02/01/21 Framing Specialist Relationship Specialty Start Date End Date Radha Burris [address] [place] [phone] PCP - General Family Medicine 10/09/17 Elian Ceballos MD [address] [place] [address] Primary Staff Physician Cardiology 12/01/20 Herminia [place] MD [address] [facility] [place] [place] [address] Primary Staff Physician Cardiology 02/01/21 Framing Specialist Relationship Specialty Start Date End Date Radha [address] [place] [phone] PCP - General Family Medicine 10/09/17 Elian Ceballos MD [address] [facility] [place] [address] Primary Staff Physician Cardiology 12/01/20 Herminia [place] MD [address] [place] [address] Primary Staff Physician Cardiology 02/01/21 Framing Specialist Relationship Specialty Start Date End Date Radha [address] [place] [phone] PCP - General Family Medicine 10/09/17 Elian Ceballos MD [address] [facility] [place] [address] Primary Staff Physician Cardiology 12/01/20 Herminia Roland MD [address] [facility] [place] [place] [address] Primary Staff Physician Cardiology 02/01/21 Framing Specialist Relationship Specialty Start Date End Date Radha [address] [place] [phone] PCP - General Family Medicine 10/09/17 Elian Ceballos MD [address] [place] [address] Primary Staff Physician Cardiology 12/01/20 Herminia [place] MD [address] [place] [address] Primary Staff Physician Cardiology 02/01/21 Framing Specialist Relationship Specialty Start Date End Date Radha Burris [address] [place] [phone] PCP - General Family Medicine 10/09/17 Elian Ceballos MD [address] [place] [address] Primary Staff Physician Cardiology 12/01/20 Herminia [place] MD [address] [facility] [place] [place] [address] Primary Staff Physician Cardiology 02/01/21 Framing Specialist Relationship Specialty Start Date End Date Radha Burris [address] [place] [phone] PCP - General Family Medicine 10/09/17 Elian Ceballos MD [address] [place] [address] Primary Staff Physician Cardiology 12/01/20 Herminia [place] MD [address] [place] [address] Primary Staff Physician Cardiology 02/01/21 Framing Specialist Relationship Specialty Start Date End Date Radha Burris [address] [place] [phone] PCP - General Family Medicine 10/09/17 Elian Ceballos MD [address] [place] [address] Primary Staff Physician Cardiology 12/01/20 Herminia Roland MD [address] [place] [address] Primary Staff Physician Cardiology 02/01/21 Framing Specialist Relationship Specialty Start Date End Date Radha Burris [address] [place] [phone] PCP - General Family Medicine 10/09/17 Elian Ceballos MD [address] [place] [address] Primary Staff Physician Cardiology 12/01/20 Herminia [place] MD [address] [place] [address] Primary Staff Physician Cardiology 02/01/21 Framing Specialist Relationship Specialty Start Date End Date Radha Burris [address] [place] [phone] PCP - General Family Medicine 10/09/17 Elian Ceballos MD [address] [place] [address] Primary Staff Physician Cardiology 12/01/20 Herminia Roland MD [address] [place], [place] [id number] Primary Staff Physician Cardiology 02/01/21 Framing Specialist Relationship Specialty Start Date End Date Radha Burris [address] [place] [address] PCP - General Family Medicine 10/09/17 Elian Ceballos MD [address] [place] [address] Primary Staff Physician Cardiology 12/01/20 Herminia Roland MD [address] [place] [address] Primary Staff Physician Cardiology 02/01/21 Framing Specialist Relationship Specialty Start Date End Date Radha Burris MD [address] [id number] PCP - General 03/22/20 Framing Specialist Relationship Specialty Start Date End Date Radha Burris [address] [place] [address] PCP - General Family Medicine 10/09/17 Elian Ceballos MD [address] [place] [address] Primary Staff Physician Cardiology 12/01/20 Herminia Roland MD [address] [place] [address] Primary Staff Physician Cardiology 02/01/21 Framing Specialist Relationship Specialty Start Date End Date Radha Burris [address] [place] [address] PCP - General Family Medicine 10/09/17 Elian Ceballos MD [address] [place], [place] [id number] Primary Staff Physician Cardiology 12/01/20 Herminia Roland MD [address] [place] [address] Primary Staff Physician Cardiology 02/01/21 Framing Specialist Relationship Specialty Start Date End Date Radha Burris MD [address] [place] [address] PCP - General 03/22/20 Framing Specialist Relationship Specialty Start Date End Date Radha Burris MD [address] [place] [address] PCP - General 03/22/20 Framing Specialist Relationship Specialty Start Date End Date Radha Burris MD [address] [place] [phone] PCP - General 03/22/20 Team Status: Active Member Role Status Dates Radha Burris MD Primary Care Provide r Active Team Status: Inactive Member Role Status Dates Radha Burris MD Primary Care Provide r Active Charlene Soria MD Attending Provider Active Framing Specialist Relationship Specialty Start Date End Date Radha Burris MD [address] [facility] [address] [place], [place] [id number] PCP - General Internal Medicine 01/14/20 Esther Grey DO [address] [place] [address] [place] [address] Physician Electrophysiology 01/26/20 Framing Specialist Relationship Specialty Start Date End Date Radha Burris [address] [place] [id number] PCP - General Family Medicine 10/09/17 Elian Ceballos MD [address] [place], [place] [id number] Primary Staff Physician Cardiology 12/01/20 Herminia Roland MD [address] [place] [address] Primary Staff Physician Cardiology 02/01/21 Framing Specialist Relationship Specialty Start Date End Date Radha Burris MD [address] [place], [place] [phone] PCP - ACO Reach 09/13/22 Radha Burris MD [address] [place], [place] [id number] PCP - General Family Medicine 09/20/22 Team [...] June 10, 2023 End: June 10, 2023 Framing Specialist Relationship Specialty Start Date End Date Radha Burris MD [address] [place], [place] [phone] PCP - General Internal Medicine 01/14/20 Esther Grey DO [address] [place] [address] Physician Electrophysiology 01/26/20 Name Effective Dates (start - stop) Status Members No Information Framing Specialist Relationship Specialty Start Date End Date Radha Burris MD [address] [place] [address] PCP - ACO Reach 09/13/22 Radha Burris MD [address] [place] [address] PCP - General Family Medicine 09/20/22 Framing Specialist Relationship Specialty Start Date End Date Radha Burris MD [address] [place] [address] PCP - ACO Reach 09/13/22 Radha Burris MD [address] [place] [address] PCP - General Family Medicine 09/20/22 Framing Specialist Relationship Specialty Start Date End Date Radha Burris MD [address] [place] [address] PCP - ACO Reach 09/13/22 Radha Burris MD [address] [place] [address] PCP - General Family Medicine 09/20/22 Framing Specialist Relationship Specialty Start Date End Date Radha Burris MD [address] [place] [address] PCP - ACO Reach 09/13/22 Radha Burris MD [address] [place] [address] PCP - General Family Medicine 09/20/22 Framing Specialist Relationship Specialty Start Date End Date Radha Burris MD [address] [place] [address] PCP - ACO Reach 09/13/22 Radha Burris MD [address] [place] [address] PCP - General Family Medicine 09/20/22 Framing Specialist Relationship Specialty Start Date End Date Radha Burris MD [address] [place] [address] PCP - ACO Reach 09/13/22 Radha Burris MD [address] [place] [address] PCP - General Family Medicine 09/20/22 Framing Specialist Relationship Specialty Start Date End Date Radha Burris MD [address] [place] [address] PCP - ACO Reach 09/13/22 Radha Burris MD [address] [place] [address] PCP - General Family Medicine 09/20/22 Framing Specialist Relationship Specialty Start Date End Date Radha Burris MD [address] [place] [address] PCP - ACO Reach 09/13/22 Radha Burris MD [address] [place] [address] PCP - General Family Medicine 09/20/22 Framing Specialist Relationship Specialty Start Date End Date Radha Burris MD [address] [place] [address] PCP - ACO Reach 09/13/22 Radha Burris MD [address] [place] [address] PCP - General Family Medicine 09/20/22 Framing Specialist Relationship Specialty Start Date End Date Radha Burris MD [address] [place] [address] PCP - ACO Reach 09/13/22 Radha Burris MD [address] [place] [address] PCP - General Family Medicine 09/20/22 Framing Specialist Relationship Specialty Start Date End Date Radha Burris MD [address] [place] [address] PCP - ACO Reach 09/13/22 Radha Burris MD [address] [place] [address] PCP - General Family Medicine 09/20/22 Framing Specialist Relationship Specialty Start Date End Date Radha Burris MD [address] [place] [address] PCP - ACO Reach 09/13/22 Radha Burris MD [address] [place] [address] PCP - General Family Medicine 09/20/22 Framing Specialist Relationship Specialty Start Date End Date Radha Burris MD [address] [place] [address] PCP - ACO Reach 09/13/22 Radha Burris MD [address] [place] [address] PCP - General Family Medicine 09/20/22 Framing Specialist Relationship Specialty Start Date End Date Radha Burris MD [address] [place] [address] PCP - General Family Medicine 09/20/22 Framing Specialist Relationship Specialty Start Date End Date Radha Burris MD [address] [place] [address] PCP - General Family Medicine 09/20/22 Radha Burris MD [address] [place] [address] PCP - ACO Reach 06/05/24 Framing Specialist Relationship Specialty Start Date End Date Radha Burris MD [address] [place] [address] PCP - General Family Medicine 09/20/22 Radha Burris MD [address] [place] [address] PCP - ACO Reach 06/05/24 Framing Specialist Relationship Specialty Start Date End Date Radha Burris MD [address] [place] [address] PCP - General Family Medicine 09/20/22 Radha Burris MD [address] [place] [address] PCP - ACO Reach 06/05/24 Framing Specialist Relationship Specialty Start Date End Date Radha Burris MD [address] [place] [address] PCP - General Family Medicine 09/20/22 Radha Burris MD [address] [place] [address] PCP - ACO Reach 06/05/24 Shashi Pina DO [address] [place] [address] Referring Physician Neurology 06/22/24 Framing Specialist Relationship Specialty Start Date End Date Radha Burris MD [address] [place] [address] PCP - General Family Medicine 09/20/22 Radha Burris MD [address] [place] [address] PCP - ACO Reach 06/05/24 Shashi Pina DO [address] [place] [address] Referring Physician Neurology 06/22/24 Framing Specialist Relationship Specialty Start Date End Date Radha Burris MD [address] [place] [address] PCP - General Family Medicine 09/20/22 Radha Burris MD [address] [facility] [place] [address] PCP - ACO Reach 06/05/24 Shashi Pina DO [address] [address] Referring Physician Neurology 06/22/24 Framing Specialist Relationship Specialty Start Date End Date Radha Burris MD [address] [facility] [place] [address] PCP - General Family Medicine 09/20/22 Shashi Pina DO [address] [address] Referring Physician Neurology 06/22/24 Framing Specialist Relationship Specialty Start Date End Date Radha Burris MD [address] [facility] [place] [address] PCP - General Family Medicine 09/20/22 Shashi Pina DO [address] [address] Referring Physician Neurology 06/22/24 Framing Specialist Relationship Specialty Start Date End Date Radha Burris MD [address] [facility] [place] [address] PCP - General Family Medicine 09/20/22 Shashi Pina DO [address] [address] Referring Physician Neurology 06/22/24 Framing Specialist Relationship Specialty Start Date End Date Radha Burris MD [address] [place] [address] PCP - General Family Medicine 09/20/22 Shashi Pina DO [address] [address] Referring Physician Neurology 06/22/24 Framing Specialist Relationship Specialty Start Date End Date Radha Burris MD [address] [place] [address] PCP - General Family Medicine 09/20/22 Shashi Pina DO [address] [address] Referring Physician Neurology 06/22/24 Framing Specialist Relationship Specialty Start Date End Date Radha Burris MD [address] [facility] [place] [address] PCP - General Family Medicine 09/20/22 Shashi Pina DO [address] [address] Referring Physician Neurology 06/22/24 Framing Specialist Relationship Specialty Start Date End Date Radha Burris MD [address] [facility] [place] [address] PCP - General Family Medicine 09/20/22 Shashi Pina DO [address] [address] Referring Physician Neurology 06/22/24 Source Comments (unrecognize d section and content) In the event this informatio n is protected by the Federal Confidentiality of Alcohol and Drug Abuse Patient Records regulations: The Federal rules restrict any use of the information to criminally investigate or prosecute any alcohol or drug abuse patient.[facility] the event this information is protected by the Federal Confidentiality of Alcohol and Drug Abuse Patient Records regulations: The Federal rules restrict any use of the information to criminally investigate or prosecute any alcohol or drug abuse patient.[facility] Center[facility] the event this information is protected by the Federal Confidentiality of Alcohol and Drug Abuse Patient Records regulations: The Federal rules restrict any use of the information to criminally investigate or prosecute any alcohol or drug abuse patient.[facility] the event this information is protected by the Federal Confidentiality of Alcohol and Drug Abuse Patient Records regulations: The Federal rules restrict any use of the information to criminally investigate or prosecute any alcohol or drug abuse patient.[facility] the event this information is protected by the Federal Confidentiality of Alcohol and Drug Abuse Patient Records regulations: The Federal rules restrict any use of the information to criminally investigate or prosecute any alcohol or drug abuse patient.[facility] the event this information is protected by the Federal Confidentiality of Alcohol and Drug Abuse Patient Records regulations: The Federal rules restrict any use of the information to criminally investigate or prosecute any alcohol or drug abuse patient.[facility] the event this information is protected by the Federal Confidentiality of Alcohol and Drug Abuse Patient Records regulations: The Federal rules restrict any use of the information to criminally investigate or prosecute any alcohol or drug abuse patient.[facility] the event this information is protected by the Federal Confidentiality of Alcohol and Drug Abuse Patient Records regulations: The Federal rules restrict any use of the information to criminally investigate or prosecute any alcohol or drug abuse patient.[facility] the event this information is protected by the Federal Confidentiality of Alcohol and Drug Abuse Patient Records regulations: The Federal rules restrict any use of the information to criminally investigate or prosecute any alcohol or drug abuse patient.[facility] the event this information is protected by the Federal Confidentiality of Alcohol and Drug Abuse Patient Records regulations: The Federal rules restrict any use of the information to criminally investigate or prosecute any alcohol or drug abuse patient.[facility] the event this information is protected by the Federal Confidentiality of Alcohol and Drug Abuse Patient Records regulations: The Federal rules restrict any use of the information to criminally investigate or prosecute any alcohol or drug abuse patient.[facility] the event this information is protected by the Federal Confidentiality of Alcohol and Drug Abuse Patient Records regulations: The Federal rules restrict any use of the information to criminally investigate or prosecute any alcohol or drug abuse patient.[facility] the event this information is protected by the Federal Confidentiality of Alcohol and Drug Abuse Patient Records regulations: The Federal rules restrict any use of the information to criminally investigate or prosecute any alcohol or drug abuse patient.[facility] Center[facility] the event this information is protected by the Federal Confidentiality of Alcohol and Drug Abuse Patient Records regulations: The Federal rules restrict any use of the information to criminally investigate or prosecute any alcohol or drug abuse patient.[facility] the event this information is protected by the Federal Confidentiality of Alcohol and Drug Abuse Patient Records regulations: The Federal rules restrict any use of the information to criminally investigate or prosecute any alcohol or drug abuse patient.[facility] Center[facility] the event this information is protected by the Federal Confidentiality of Alcohol and Drug Abuse Patient Records regulations: The Federal rules restrict any use of the information to criminally investigate or prosecute any alcohol or drug abuse patient.[facility] Center[facility] the event this information is protected by the Federal Confidentiality of Alcohol and Drug Abuse Patient Records regulations: The Federal rules restrict any use of the information to criminally investigate or prosecute any alcohol or drug abuse patient.[facility] FOR RECORDS PERTAINING TO PATIENTS WHO ARE [...] BE BASED ON THE PRIMARY CLINICAL RECORDS. [facility] [address]. provides no warranty or guarantee of the accuracy or completeness of information in this document.
--- NOTE | 2024-09-01 07:20 | CA_ITS ---
Patient Name: YOLI ANTUNEZ MR#: [id number] : 1955 Exam Date: 09/01/2024 Ordering Doctor: YANDEL BURKS CNP ECHOCARDIOGRAM REPORT PROCEDURE: CA ECHO DOPPLER COMPLETE INDICATIONS: Left ventricular hypertrophy, pacemaker, watchman COMPARISON: None. DESCRIPTION: COMPLETE ECHOCARDIOGRAM Real-time transthoracic echocardiography with 2D, M-mode, spectral and color flow Doppler performed. QUALITY: Technical quality was good. LEFT VENTRICLE: Normal chamber size. Moderate concentric left ventricular hypertrophy. Normal systolic function. LV EF: Normal left ventricular ejection fraction, (55-60%). DIASTOLIC: Normal diastolic function. ATRIAL SEPTUM: Visually appears intact. LEFT ATRIUM: Normal chamber size. RIGHT ATRIUM: Mild dilatation. RIGHT VENTRICLE: Normal chamber size. Normal right ventricular systolic function. Pacer wire seen. TRICUSPID VALVE: Normal mobility and thickness. No stenosis with mild regurgitation. No evidence of pulmonary hypertension. RVSP 31 mmHg MITRAL VALVE: Normal mobility and thickness. No evidence of mitral valve stenosis. There is no mitral annular calcification. Mild mitral regurgitation. AORTIC VALVE: Normal trileaflet appearance. No visible sclerosis. Normal leaflet mobility. No evidence of aortic valve stenosis. Mild aortic regurgitation. AORTIC ROOT: Mildly dilated aortic root (4.2 cm). Ascending aorta is mildly dilated (3.7 cm). PULMONIC VALVE: Normal thickness and mobility. No stenosis. Mild regurgitation. PERICARDIUM: No evidence of pericardial effusion. IVC: Collapses with inspirations. IVC is normal in size. PLEURA: CONCLUSION: 1. Moderate concentric left ventricular hypertrophy with normal systolic function. LVEF is 55-60%. 2. Normal right ventricular size and systolic function. 3. Normal diastolic function. 4. Mild mitral, tricuspid, aortic and pulmonic regurgitation. 5. Normal right sided pressures. 6. Mildly dilated aortic root and ascending aorta. Adult Echocardiography Procedure Report Left Ventricle LVEDD (3.7 - 5.6 cm): 4.68 cm LVESD (2.2 - 4.0 cm): 3.08 cm LVIVS thickness (0.6 - 1.2 cm): 1.26 cm LVPW thickness (0.5 - 1.0 cm): 1.41 cm e': 0.09 m/s E - e': 5.76 LVOT Max Gradient: 2.58 mm[Hg] LVOT Area (cm2): 0.80 m/s Peak Velocity (LVOT): 0.80 m/s Mean Velocity (LVOT): 0.55 m/s LVOT Diameter 2.68 cm Left Atrium LA Volume Index (2D A2C): 26.07 ml/m2 Left Atrium Systolic Dimension: 4.63 cm Mitral Valve MV E to A Ratio: 1.06 Mitral Valve A-Wave Peak Velocity: 0.49 m/s Mitral Valve E-Wave Peak Velocity: 0.52 m/s Right Ventricle Aorta AO Root Diam: 4.16 cm Ascending Ao Diam: 3.70 cm Aortic Valve AoV Area (Peak Andrey): 5.27 cm2, 5.27 cm2 AoV Area (VTI): 6.53 cm2, 6.53 cm2 Peak Velocity(Antegrade Flow): 0.86 m/s Peak Gradient(Antegrade Flow): 2.95 mm[Hg] Mean Velocity(Antegrade Flow): 0.58 m/s Mean Gradient(Antegrade Flow): 1.54 mm[Hg] Velocity Time Integral: 16.51 cm Tricuspid Valve Peak Velocity (Regurgitant Flow): 2.31 m/s, 2.56 m/s, 2.63 m/s, 2.55 m/s Pulmonic Valve Mean Gradient: 1.78 mm[Hg] Mean Velocity: 0.61 m/s Peak Velocity: 0.93 m/s, 0.82 m/s Peak Gradient: 2.67 mm[Hg], 3.47 mm[Hg] Right Atrium Right Atrium Systolic Pressure: 68.68 ml, 68.68 ml Dictated by: Mono Santana M.D. on 09/02/2024 at 14:45 Approved by: Mono Santana M.D. on 09/02/2024 at 14:50
== END 2024-09-01 07:03 | disposition home or self-care (01) ==
LOC: CARD 07:03
PROVIDERS: PCP Family Medicine; Visit Provider Nurse Practitioner Family
DX: I51.7 Cardiomegaly (principal)
CPT/HCPCS: 93306

== ENCOUNTER 2024-12-20 03:24 | Emergency (ER) | payer MEDICARE, OTHER, SELFPAY ==
--- OUTSIDE RECORDS SUMMARY | 2024-12-20 03:32 | XMS_ITS | CCD ---
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 Name Role Phone CLAIR MATT Unavailable Unavailable RADHA BURRIS Unavailable Unavailable Ag Chris Unavailable Unavailable Fatuma, Ritu Unavailable Unavailable Terrell Her Unavailable Unavailable Terrell Her Unavailable Unavailable Lara Escobar Unavailable Unavailable Ritu Burris Unavailable Unavailable RADHA PRICE Primary Care Un available MAYELIN WOLFF Referring Unavailable Radha Price Primary Care [facility] PROVIDER, UNKNOWN Attending Unavailable PROVIDER, UNKNOWN [...] Referring Unavailable RADHA BURRIS Referring Unavailable SHAYE PALEMR Admitting Unavailable SHAYE PALMER Attending Unavailable RADHA BURRIS Primary Care Unavailable JANET FORD Consulting Unavailable EVELIO, DARIELA Admitting Unavailable EVELIO DARIELA Attending Unavailable KATHIE SEVERINO Referring Unavailable RADHA PRICE Primary Care Un available BHAVESH GUNTER Consulting Unavailable CANOS IV, MARIO PURVIS Consulting Unavaila DUSTY Casillas Consulting Unavailable Radha Price MD Primary Care Pr ovider Radha Burris MD Primary Care Provider Esther Grey DO Unavailable Radha Burris Primary Care Provider [phone] Tucker VAZQUEZ Elian Caballero Unavailable Luan VAZQUEZ, Herminia Schuler Unavailable MARKER, DR MARTIN Consulting Unavailable MARKER, DR MARTIN Attending Unavailable FATUMA, DR OCONNOR Primary Care Unavailable MARKER, DR MARTIN Admitting Unavailable AMOS RAMIREZ Consulting Unavailable FATUMA, DR OCONNOR Primary Care Unavailable CONCHA PHILLIPS Attending Unavailable MICHAEL, DR MAYELIN Lovell Consulting Unavailable CONCHA PHILLIPS Admitting Unavailable MERE, BLANCHE GUILLEN Consulting Unavailable DAVIE NARANJO Consulting Unavailable SAMANTHA, [...] Consulting Unavailable SHAHNAZ, DR VILLAREAL Consulting Unavailable MOLATISHA, DR VILLAREAL Attending Unavailable MOUKARBEL, DR VILLAREAL Admitting Unavailable FATUMA, DR OCONNOR Primary Care Unavailable VITALIY, YANDEL Consulting Unavailable VITALIYYANDEL Attending Unavailable FATUMA, DR OCONNOR Primary Care Unavailable VITALIY, YANDEL Admitting Unavailable VITALIY, YANDEL Admitting Unavailable VITALIYYANDEL GEORGE Attending Unavailable FATUMA, DR OCONNOR Primary Care [...] Butt, Dr. Arabella Siddiqi Attending Unavailable Rika Curpaulina, Dr. Arabella Siddiqi Referring Unavailable Fatuma, Dr. Radha Mena Primary Care Unavail able Rika Butt, Dr. Arabella Siddiqi Admitting Unavailable Rika Curpaulina, Dr. Arabella Siddiqi Attending Unavailable Fatuma, Dr. [...] Maramanda, Dr. Ranjana Joiner Attending U navailable Aydin, [...] Fatuma, Dr. Radha Mena Referring Unavail able Ceballos MD, Elian K Unavailable Luan VAZQUEZ, Herminia Schuler Unavailable [phone] Radha Burris MD Primary Care Provider YOSSI CHEN Attending Unavailable RADHA BURRIS Primary Care Unavailable RADHA BURRIS Primary Care Unavailable RADHA BURRIS Primary Care Unavailable Asaad, Imad Unavailable MD Radha Rapp Primary Care Pr ovider MD Estella Imallison Attending Provider [phone] Radha Burris MD Primary Care Provider Kargabriel ALARCON, Esther Unavailable Radha Burris MD Unavailable Radha Burris MD Primary Care Provider Radha Rapp Primary Care Un available Asaad, Imad Admitting Unavailable Asaad, Imad Attending Unavailable Radha Rapp Primary Care Un available Asaad, Imad Admitting Unavailable Asaad, Imad Attending Unavailable Karim DO, Esther Unavailable YOSSI CHEN Referring Unavailable RADHA BURRIS Primary Care Unavailable Radha Burris Primary Care Provider Donn Ceballos MD Unavailable Unavailable Donn Ceballos Attending Unavailable Radha Burris Referring Unavailable Radha Burris Primary Care Unavailable Donn Ceballos MD Unavailable Unavailable Lin VAZQUEZ, Donn Unavailable Unavailable Radha Burris MD Unavailable Shashi Pina DO Unavailable RADHA BURRIS Primary Care Physician Lalito Burris Admitting Unavailable Lalito Burris Attending Unavailable Lalito Burris Referring Unavailable Shashi Pina DO Unavailable [phone] Lalito Burris Referring Unavailable Biedenbach, Lalito Hill Admitting Unavailable Biedenbach, Lalito Hill Attending Unavailable Biedenbach, Lalito Hill Referring Unavailable Biedenbach, Lalito Hill Admitting Unavailable Biedenbach, Lalito Hill Attending Unavailable Silvana DO, Devonteer Unavailable Silvana DO, Christopher Unavailable AHMET, ELEONORA Levi Attending Unavailab nikki PINA, SHASHI Attending Unavailable AHMET, ELEONORA Levi Referring Unavailab le LATOYA REDDING Attending Unavailable HALUANN, ELEONORA Levi Referring Unavailab le KAVYA, LATOYA F Attending Unavailable SHASHI PINA Attending Unavailable FATUMA, RADHA Attending Unavailable HACKSAM, ELEONORA Levi Attending Unavailab le FATUMA, RADHA Attending Unavailable FATUMA, RADHA Referring Unavailable KAMDINA, SHIVANI Attending Unavailable DAYTON, LALITO Hill Attending Unavailable RADHA BURRIS Referring Unavailable BIEDENBACH, LALITO Hill Attending Unavailable BIEDENBACH, LALITO Hill Attending Unavailable BIEDENBACH, LALITO Hill Attending Unavailable KAMPFER, SHIVANI Attending Unavailable SOFIA VIGIL Attending Unavailab le FATMUA, RADHA Attending Unavailable HORANI, MIGUEL Admitting Unavailable HUNTER, EDDI Attending Unavailable FAWWADSHAIKH Referring Unavailable HORANI, MIGUEL Admitting Unavailable HUNTER, EDDI Attending Unavailable HUNTER, EDDI Referring Unavailable PIRKLGILBERT Referring Unavailable ALGHOTHANI, MOHBERTHAD Referring Unavailable FELIZ, MARGO Referring Unavailable FELIZ, MARGO Referring Unavailable MADELYNLALITO Referring Unavailable ELTAHAWY, JEFF Attending Unavailable MADELYNLALITO Referring Unavailable MAME, SHUKRI Referring Unavailable MAME, SHUKRI Attending Unavailable LALITO JOSHI Attending Unavailable VITALIYYANDEL GEORGE Attending Unavailable MAME, SHUKRI Attending Unavailable MAME, SHUKRI Attending Unavailable VITALIYYANDEL Attending Unavailable SHASHI PINA Referring Unavailable HUNTER, HANReny Referring Unavailable HUNTER, HANI Referring Unavailable HUNTER, HANI Referring Unavailable HNUTER, HANI Referring Unavailable HUNTER, HANI Referring Unavailable ALGHOTHANI, MOHAMAD Referring Unavailable HUNTER, HANI Referring Unavailable HUNTER, HANI Referring Unavailable HUNTER, HANI Referring Unavailable SYD MCGREGOR Referring Unavailable Radha Burris MD Primary Care Provider ABBY BERNSTEIN Attending Unavailable RADHA BURRIS Primary Care Unavailable MARÍA PEARL Referring Unavailable ABBY BERNSTEIN Referring Unavailable RADHA BURRIS Primary Care Unavailable Allergies Allergy Classification Reported Allergen(s) Allergy Type Date of Onset Reaction(s) Facility (20 sources) Amoxicillin; Translations: [amoxicillin] Drug Allergy 01-31-20 23 Unknown [facility] (20 sources) Penicillins; Translations: [Penicillins] drug allergy 09-13-19 [facility] ([facility] sources[facility] Penicillin; Translations: [PENICILLIN] Drug Allergy 06-22-19 22 Unknown (qualifier value) [facility] (1 source) Penicillin Drug Allergy 11-05-19 The [facility] Repository (20 sources) dofetilide; Translations: [Tikosyn CAPS] Drug Allergy 08-25-19 22 Other: See Comments, Unknown [facility] (20 sources) Penicillins Propensity to adverse reactions to drug 09-13-19 Unknown, Other [facility] Work Phone: (20 sources) Penicillins Drug Allergy 09-13-19 Unknown [facility] Work Phone: (3 sources) dofetilide; Translations: [Tikosyn] Drug Allergy 06-04-19 23 [facility] Repository (1 source) Penicillins Drug allergy (disorder) 07-29-19 15 [facility] Rep[facility] (10 sources) Vancomycin; Translations: [vancomycin] Drug Allergy 03-07-20 22 Hives [facility] Rep[facility] (20 sources) Vancomycin; Translations: [Vancomycin HCl CAPS] Drug Allergy 03-07-20 22 Anaphylaxis, Itching, Rash [facility] (8 sources) Vancomycin HCl in Dextrose SOLN; Translations: [Vancomycin HCl in Dextrose SOLN] Allergy to drug (finding) [facility] Work Phone: (7 sources) Vancomycin; Translations: [VANCOMYCIN HCL] Drug Allergy 01-31-20 Unknown [facility] Work Phone: (7 sources) Vancomycin Hcl In Water; Translations: [VANCOMYCIN HCL IN WATER] Propensity to adverse reactions 01-31-20 Unknown [facility] Work Phone: (20 sources) dofetilide Drug Allergy 08-25-19 Dizziness, Unknown [facility] (1 source) dofetilide Drug Allergy 04-12-20 [facility] Rep[facility] (1 source) Penicillins Drug allergy (disorder) 03-20-20 [facility] (1 source) Vancomycin Drug Allergy 04-12-20 [facility] (4 sources) Penicillins Drug Allergy 09-13-19 Unknown [facility] Work Phone: Medications Current Medications Medication Drug Class(es) Dates Sig (Normalized) Sig (Original) acetaminophen 325 mg / HYDROcodone bitartrate 5 mg oral tablet (1 source) Opioid Agonist Start: 10-07-2024 End: 10-14-2024 take 1 tablet by mouth every four hours for pain Froid 325 mg-5 mg oral tablet 1 tab(s), Oral, q4hr for pain for 7 day(s), 24 tab(s), Refill(s) 0, [facility] 1429, 198, cm, 09/26/24 9:24:00 EDT, Height/Length Dosing, 115, kg, 09/26/24 9:24:00 EDT, Weight Dosing Start Date: 10/07/24 Stop Date: 10/14/24 Status: Ordered Quantity: 24.0 Unit: tab(s) Repeat number: 1 Indications: Other acute postprocedural pain; Ascorbic Acid / POLYETHYLENE GLYCOL 3350 / Potassium Chloride / Sodium Ascorbate / Sodium Chloride / sodium sulfate (9 sources) Osmotic Laxative, Vitamin C Start: 02-17-2024 End: 06-09-2024 [id number]-[id number]- Na Asc-C (Plenvu) 140 g reconstituted solution MLSDIRECTED Orally ASDIRECTED for 2 days 02/17/2024 06/09/2024 Discontinued (Therapy completed) Start: 02-17-2024 [id number]-[id number] aSulf-Na Asc-C (Plenvu) 140 g reconstituted solution MLSDIRECTED Orally ASDIRECTED for 2 days 02/17/2024 Active aspirin 81 mg delayed release oral tablet (16 sources) Platelet Aggregation Inhibitor, Nonsteroidal Anti-inflammatory Drug take 1 tablet by mouth once daily aspirin, enteric coated (ASPIRIN, ENTERIC COATED) 81 mg EC tablet Take 81 mg by mouth once daily. Active Comment on above: Take 81 mg by mouth once daily. bisacodyl 5 mg delayed release oral tablet (9 sources) Stimulant Laxative Start: 02-17-20 End: 06-09-19 bisacodyl (Dulcolax) 5 MG EC tablet 1 (one) time each day at the same time 02/17/2024 06/09/2024 Discontinued (Therapy completed) budesonide 3 mg delayed release oral capsule (4 sources) Corticosteroid Start: 04-24-19 Budesonide 3 MG 3 tabs daily for 60 days, 2 tabs daily for 14 days, 1 tab daily for 14 days Orally Once a day for 90 days Apr, Active calcitriol 0.39103 mg oral capsule (20 sources) Vitamin D3 Analog Start: 08-11-19 End: 02-07-20 take 1 capsule by mouth once daily calcitriol (Rocaltrol) 0.25 MCG capsule Indications: Hypocalcemia Take 1 capsule (0.25 mcg) by mouth Daily 90 capsule 1 08/10/2024 02/06/2025 Active Start: 09-13-2020 take 2 capsules by m outh once daily in the evening calcitriol 0.25 mcg Cap 0.5 mcg = 2 cap(s), Oral, qPM, Refills(s) 0 Start Date: 09/13/20 Status: Ordered Repeat number: 1 Start: 01-15-2020 End: 04-12-2023 take 1 capsule by mouth once daily calcitriol (ROCALTROL) 0.25 MCG capsule TAKE 1 CAPSULE BY MOUTH DAILY. 30 Capsule 3 01/15/2020 Active Start: 01-15-2020 End: 05-04-2021 take 2 capsules by mouth once daily calcitriol (ROCALTROL) 0.25 mcg capsule Take 2 capsules by mouth once daily. 01/15/2020 05/04/2021 Discontinued (Discontinued by another Health Care Provider) Start: 09-25-2018 End: 07-01-2020 take 1 capsule [...] Take 1 tablet by mouth once daily. Active calcium carbonat e (Os-Atilio) 1250 (500 Ca) MG chewable tablet Chew 1 tablet in the morning. Active Comment on above: Take 1 tablet [...] 11-06-2019 take 2 tablets by mo [facility] four times daily dilTIAZem (Cardizem) 30 mg immediate release tablet Take 2 tablets (60 mg) by mouth 4 times a day. 0 11/06/2019 Active take 2 capsules by outh in the morning dilTIAZem HCl ER Coated Beads 180 MG TAKE 2 CAPSULES BY MOUTH IN THE MORNING Oral for 90 Days Active take 1 capsule by mo [facility] every twenty-four hours dilTIAZem HCl ER 180 MG Oral Capsule Extended Release 24 Hour Quantity: 0 Refills: 0 Ordered: 17-Jul-2022 DO Active End: 01-05-2022 take 1 capsule by mouth once daily dilTIAZem (CARDIZEM 12 HR) 120 MG extended release capsule Take 120 mg by mouth daily 0 01/05/2022 Discontinued (Stop Taking at Discharge) Comment on above: Take 1 tablet by [facility] once daily. doxycycline hyclate 100 mg oral tablet (12 sources) Tetracycline-cla ss Drug Start: 09-02-2024 End: 10-08-2024 take 1 tablet by mouth in the morning doxycycline (Vibra-Tabs) 100 MG tablet Indications: Acute non-recurrent maxillary sinusitis Take 1 tablet (100 mg) by mouth in the morning and 1 tablet (100 mg) before bedtime. Take with a full glass of water and do not lie down for at least 30 minutes after. 60 tablet 09/08/2024 10/08/2024 Active Start: 09-13-2020 take 1 capsule by [facility] twice daily doxycycline hyclate 100 mg Cap 100 mg = 1 cap(s), Oral, BID, Refills(s) 0 Start Date: 09/13/20 Status: Ordered Repeat number: 1 ERENUMAB-AOOE SUBQ (2 sources) ERENUMAB-AOOE SHULTZ BQ Inject under the skin. 0 Active ergocalciferol 1.25 mg oral capsule (20 sources) Provitamin D2 Compound Start: 08-11-19 End: 01-26-20 take 1 capsule by mouth every week ergocalciferol (Vitamin D-2) 1.25 MG (97869 UT) capsule Indications: Hypocalcemia Take 1 capsule (1.25 mg) by mouth 1 (one) time per week 12 capsule 1 08/10/2024 01/25/2025 Active Start: 10-08-2022 take 1 capsule by mo uth every week ergocalciferol (Vitamin D-2) 1.25 MG (82886 UT) capsule Take 1 capsule (1,250 mcg) by mouth 1 (one) time per week. 0 10/08/2022 Active Start: 01-10-2022 End: 12-24-2023 take 1 capsule by mouth every week Vitamin D (Ergocalciferol) 1.25 MG (48487 UT) Oral Capsule TAKE 1 CAPSULE BY [...] onitrate (IMDUR) 30 MG CR tablet Isosorbide [place] itrate Not-Taking/PRN Isosorbide [place] itrate Not-Taking levothyroxine sodium 0.175 mg oral tablet (20 sources) l-Thyroxine Start: 11-18-2024 take 1 tablet by mouth three times weekly levothyroxine (Synthroid) 175 MCG tablet Indications: Acquired hypothyroidism Take 1 tablet (175 mcg) by mouth 3 (three) times a week Take on an empty stomach 36 tablet 11/18/2024 Active Start: 09-25-2024 take 1 tablet by ana th every other day levothyroxine 175 mcg (0.175 mg) Tab 175 mcg = 1 tab(s), Oral, Every other day, Refills(s) 0 Start Date: 09/25/24 Status: Ordered Repeat number: 1 Start: 09-02-2024 take 1 tablet by ana th three times weekly levothyroxine (Synthroid) 175 MCG tablet Indications: Acquired hypothyroidism Take 1 tablet (175 mcg) by mouth 3 (three) times a week Take on an empty stomach 36 tablet 09/02/2024 Active Start: 06-11-2024 take 1 tablet by ana th four times weekly levothyroxine (Synthroid) 150 MCG tablet Indications: Acquired hypothyroidism Take 1 tablet (150 mcg) by mouth [...] mouth daily before breakfast. 12/15/2020 Active Start: 09-13-2020 take 1 tablet by ana th every other day levothyroxine 150 mcg (0.15 mg) Tab 150 mcg = 1 tab(s), Oral, Every other day, Refills(s) 0 Start Date: 09/13/20 Status: Ordered Repeat number: 1 Start: 07-01-2020 End: 04-12-2023 take 125 ug [...] ana th once daily before breakfast levothyroxine (SYNTHROID) 150 mcg tablet Take 150 mcg by mouth daily before breakfast. Active take 1 tablet by ana th once daily in the morning Synthroid 175 MCG 1 tablet on an empty stomach in the morning Orally Once a day for 90 days Active Levothyroxine So dium 175 MCG Oral [...] Active magnesium citrate 58.2 mg/ml oral solution (20 sources) take 296 mL by mouth once daily magnesium citrate solution Take 296 mL by mouth Daily Active magnesium oxide 250 mg oral tablet (6 sources) Start: 09-25-2024 take 250 mg by mouth once daily magnesium oxide 250 mg, Oral, Daily, Refills(s) 0 Start Date: 09/25/24 Status: Ordered Repeat number: 1 magnesium oxide (MAG-OX) 400 mg (241.3 mg magnesium) tablet Take 235 mg by mouth two times a day. Active magnesium sulfate 4 g, lidocaine (cardiac) (XYLOCAINE) 100 mg in sodium chloride 0.9 % 250 mL IVPB (1 source) Start: 03-11-2020 magnesium sulf ate 4 g, lidocaine (cardiac) (XYLOCAINE) 100 mg [...] ate Not-Taking metroNIDAZOLE 500 mg oral tablet (15 sources) Nitroimidazole Antimicrobial Start: 09-22-2024 End: 10-02-2024 MetroNIDAZOLE 500 mg Tab 500 mg = 1 tab(s), Refills(s) 0 Start Date: 09/25/24 Status: Ordered Repeat number: 1 Start: 09-08-2024 End: 09-18-2024 take 1 tablet by mouth in the morning, then take 1 tablet by mouth in the evening, then take 1 tablet by mouth at bedtime metroNIDAZOLE (Flagyl) 500 MG tablet Indications: Acute non-recurrent maxillary sinusitis Take 1 tablet (500 mg) by mouth in the morning and 1 tablet (500 mg) in the evening and 1 tablet (500 mg) before bedtime. Do all this for 10 days. 30 tablet 09/08/2024 09/18/2024 Active Start: 01-05-2022 metroNIDAZOLE 500 MG Oral Tablet Quantity: 6 Refills: 0 Ordered: 05-Jan-2022 DO Start : 05-Jan-2022 Active Start: 01-03-2022 End: 01-08-2022 500 mg, Oral, EVERY 8 HOURS SCHEDULED (3 times per day), 15 doses, First dose on 01/03/22 at 2100, Last dose on Sat01/08/22 at [...] Sat01/03/22 at 0730 Antimicrobial Indications: Surgical Prophylaxis midodrine hydrochloride 5 mg oral tablet (20 sources) alpha-Adrenergic Agonist Start: 11-03-2024 take 1 tablet by mouth three times daily midodrine (PROAMITINE) 5 mg tablet Take 5 mg by mouth three times a day. 11/03/2024 Active Start: 09-25-2024 take 1 tablet by ana th once daily midodrine 5 mg Tab 5 mg = 1 tab(s), Oral, Daily, Refills(s) 0 Start Date: 09/25/24 Status: Ordered Repeat number: 1 Start: 03-11-2024 End: 07-09-2024 midodrine (Proamatine) 5 [...] capsule (3 sources) Nitrofuran Antibacterial Start: 01-22-2020 nitrofurantoin monohydrate macrocrystal (MACROBID) 100 MG capsule nitroglycerin 0.4 mg sublingual tablet (20 sources) Nitrate Vasodilator Start: 07-06-2024 nitroglyce rin (Nitrostat) 0.4 MG SL tablet Indications: Atypical angina DISSOLVE ONE TABLET UNDER THE TONGUE EVERY 5 MINUTES NEEDED FOR CHEST PAIN. 75 tablet 07/06/2024 Active Start: 02-06-2024 End: 02-06-2024 nitroglycerin (Nitrostat) 0. 4 MG SL tablet Indications: Atypical angina (CMS/HCC) Place 1 tablet (0.4 mg) under the tongue every 5 (five) minutes if needed for chest pain 90 tablet 02/06/2024 Active Comment on above: Dissolve 0.4 mg [...] 06/09/2024 Discontinued (Therapy completed) polyethylene glycol 3350 479907 mg / potassium chloride 2970 mg / sodium bicarbonate 6740 mg / sodium chloride 5860 mg / sodium sulfate 48387 mg powder for oral solution (7 sources) Osmotic Laxative Start: 03-20-20 23 take 4000 mL by mouth once Golytely 236 GM 4,000 ML Orally once for Feb, Active pramipexole dihydrochloride 1 mg oral tablet (20 sources) Nonergot Dopamine Agonist Start: 04-23-19 End: 04-23-19 take 1 tablet by mouth at bedtime pramipexole (Mirapex) 1 MG tablet Indications: Restless leg Take 1 tablet (1 mg) by mouth at bedtime 90 tablet 3 04/23/2024 04/23/2025 Active Start: 01-15-2020 take 2 tablets by [facility] once daily in the evening pramipexole 1 mg Tab 2 mg = 2 tab(s), Oral, qPM, # 90 tab(s), Refills(s) 0 Start Date: 09/13/20 Status: Ordered Quantity: 90.0 Unit: tab(s) Repeat number: 1 Start: 05-02-2018 End: 04-12-2023 take 2 mg [...] mg in the evening. 01/30/2024 02/29/2024 Active take 1 tablet by ana th every twelve hours sotalol (BETAPACE) 120 mg tablet Take 120 mg by mouth every 12 hours. Active sucralfate 1000 mg oral tablet (20 [...] Comment on above: Take 1 capsule by [facility] once daily. apixaban 5 mg oral tablet (14 sources) Factor Xa Inhibitor Start: 07-01-2020 End: 04-12-2023 take 1 tablet by mouth twice daily Apixaban (Eliquis) 5 mg Tablet Discontinued 5 MG PO Twice daily July 01, 2020 12:00am April 12, 2023 12:19pm Eliquis Active Comment on above: Take 5 mg by mouth t wice daily. atorvastatin 80 mg oral tablet (20 sources) HMG-CoA Reductase Inhibitor Start: End: take 80 mg by mouth once daily [...] 12-28-2015 Depo-Medrol 40 mg Dec, 1 mL ondansetron 4 mg oral tablet (9 sources) [...] 21-Mar-2022 Active take 1 capsule by mo [facility] every twenty-four hours tamsulosin (Flomax) [...] dysrhythmias (2 sources) Palpitations; Translations: [Palpitations] Onset: 5 Episodic Cataract (20 sources) Nuclear sclerotic cataract; [...] disease, unspecified ear] Onset: 1 10-01-2022 Chronic Conditions associated with dizziness or vertigo (4 sources) Dizziness and giddiness; Translations: [Dizzy spells] Onset: 2 12-31-2022 Episodic Conduction disorders (4 sources) Presence of cardiac pacemaker; Translations: [Encounter for adjustment and management of other part of cardiac pacemaker] Onset: 4 Chronic Congestive heart failure; nonhypertensive (2 sources) [...] 3 09-07-2022 Chronic Immunity disorders (1 source) [place] light chain disease; 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 specified disorders [...] 10-01-2022 Chronic Other aftercare (1 source) Other prison (current) drug therapy; Translations: [OTH PRISON CURRENT DRUG THERAPY] Onset: 3 Episodic Other aftercare (1 source) senior living (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 of anticoagulants; Translations: [PRISON CURRNT USE ANTICOAGULANTS] Onset: 3 Episodic Other aftercare (4 sources) senior living (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 of aspirin; Translations: [LICENSE INSPECTOR CURRENT USE OF ASPIRIN] Onset: 3 Episodic Other aftercare (1 source) Patient encounter status; Translations: [senior living (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 of antithrombotics/antiplat elets] 09-07-2022 Episodic Other aftercare (2 sources) Long-term current use of aspirin; Translations: [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 of aspirin] 09-07-2022 Episodic Other [...] [Hypotension, unspecified] 07-01-2020 Episodic Other circulatory disease (5 sources) Orthostatic hypotension; Translations: [Orthostatic hypotension] Onset: 5 05-31-2023 Episodic Other circulatory disease (2 sources) Orthostatic hypotension; Translations: [Orthostatic hypotension] Onset: 5 Episodic Other connective tissue disease (1 source) [...] arthrodesis; Translations: [Arthrodesis status] 10-17-2022 Episodic Other connective tissue disease (1 source) Repeated falls; Translations: [Falls frequently] Onset: 5 Episodic Other diseases of kidney and ureters (13 sources) Secondary hyperparathyroidism; Translations: [Secondary hyperparathyroidism of renal origin] Chronic Other diseases of kidney and ureters (2 sources) Kidney disease 09-13-2020 Episodic Other disorders of stomach and duodenum [...] ptosis of right eyelid] 06-09-2024 Episodic Other eye disorders (2 sources) Ptosis of right upper eyelid; Translations: [Unspecified ptosis of right eyelid] 11-10-2024 Episodic Other eye disorders (1 source) Unspecified ptosis of right eyelid; Translations: [Ptosis of right eyelid] Onset: 5 Episodic Other gastrointestinal disorders (20 sources) Oropharyngeal [...] Chronic Other nervous system disorders (2 sources) Disorder of the autonomic nervous system, unspecified; Translations: [Disorder of the autonomic nervous system, unspecified] Onset: 5 Chronic Other nervous system disorders (2 sources) Polyneuropathy, unspecified; Translations: [Polyneuropathy, unspecified] Onset: 5 Chronic Other nervous system disorders (2 sources) Cranial nerve disorder 06-22-2024 Episodic Other nervous system disorders (2 sources) Abnormal gait; Translations: [Unspecified abnormalities of gait and mobility] 11-10-2024 Episodic Other nervous system disorders (1 source) Unspecified disturbances of skin sensation; Translations: [Disturbance of skin sensation] Onset: 5 Episodic Other nervous system disorders (1 source) Unspecified abnormalities of gait and mobility; Translations: [Abnormality of gait and mobility] Onset: 5 Episodic Other nutritional; endocrine; and metabolic disorders [...] of vocal cords] Onset: 3 01-30-2023 Episodic Other upper respiratory disease (9 sources) Deviated nasal septum; Translations: [Deviated nasal septum] Onset: 5 09-08-2024 Episodic Other upper respiratory disease (1 source) Abnormal voice; Translations: [Unspecified voice and resonance disorder] 11-10-2024 Episodic Other upper respiratory disease (1 source) Dysphonia; Translations: [Hoarseness of voice] Onset: 5 Episodic Other upper respiratory infections (11 sources) Oroantral fistula; 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] Onset: 5 09-08-2024 Chronic Other upper respiratory infections (6 sources) Acute maxillary sinusitis; Translations: [Acute maxillary sinusitis, unspecified] 09-02-2024 Episodic Peripheral and visceral atherosclerosis (2 sources) [...] of calculus of kidney] Onset: 2 Episodic Complications of surgical procedures or medical care (20 sources) Postoperative seroma; Translations: [Postprocedural seroma of a circulatory system organ or structure following other procedure] Onset: 3 10-01-2022 Episodic Diabetes mellitus without complication (20 sources) [...] syndrome] Onset: 6 10-01-2022 Episodic Mood disorders (20 sources) Mood disorders Onset: 5 06-09-2024 Nausea and vomiting (20 sources) Nausea and vomiting; Translations: [Nausea with vomiting, unspecified] Onset: 2 Episodic Noninfectious gastroenteritis (9 sources) Noninfectious gastroenteritis; Translations: [Noninfective gastroenteritis and colitis, unspecified] Onset: 5 Resolved: 5 09-22-2024 Episodic Nonspecific chest pain (20 sources) Chest pain; Translations: [Chest pain, unspecified] Onset: 1 01-06-2020 Episodic Nutritional deficiencies (20 sources) Vitamin B12 deficiency (non anemic); Translations: [Deficiency of other specified B group vitamins] Onset: 1 10-01-2022 Episodic Other aftercare (1 source) senior living (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 of antithrombotics/antipla telets; Translations: [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 of antithrombotics/antipla telets] Onset: 3 Episodic Other and unspecified benign neoplasm (1 source) Polyp of stomach and duodenum; Translations: [Polyp of stomach and duodenum] Onset: 3 Episodic Other circulatory disease (20 sources) History of transient ischemic attack; Translations: [Personal history of transient ischemic attack (TIA), and cerebral infarction without residual deficits] Onset: 2 Episodic Other connective tissue disease (3 sources) [...] 6 10-01-2022 Episodic Other non-traumatic joint disorders (20 sources) Pain in upper arm; Translations: [Pain [...] Onset: 3 01-31-2023 Episodic Residual codes; unclassified (20 sources) History of total thyroidectomy; 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 specified postprocedural states] Onset: 3 10-01-2022 Episodic Residual codes; unclassified (9 sources) Disorder of digestive tract; Translations: [Acquired absence of other specified parts of digestive tract] Onset: 5 Resolved: 5 09-22-2024 Episodic Retinal detachments; defects; vascular occlusion; and [...] DMG NL INIT] Onset: 2 Episodic Syncope (20 sources) Syncope and collapse; Translations: [Syncope and [...] Test Name Value Interpretation Reference Range Facility [facility] ACETYLCHOLINE REC BINDIN G ABon 12-16-2024 [facility] ACETYLCHOLINE BINDING, QUAL Negative Negative [facility] Comment on above: Anti-acetylcholine r eceptor binding antibody test is used as an aid in diagnosis of myasthenia gravis. A negative result cannot exclude myasthenia gravis. Clinical correlation is required. [facility] ACHR BIND AB SER-SCNC <0.02 NINF - 0.21 nmol/L [facility] Specimen Type: BLOOD SPECIMEN Ordering Facility: [facility] Address: [address] [place] [address] Original Ordering Provider: [facility] BINDING AB on 12-15-2024 ACETYLCHOLINE BINDING, QUAL Negative Normal Negative [facility] Comment on above: Order Comment: Speci men Type: BLOOD SPECIMEN Ordering Facility: [facility] Address: [address] [place] [address] Result Comment: Anti -acetylcholine receptor binding antibody test is used as an aid in diagnosis of myasthenia gravis. A negative result cannot exclude myasthenia gravis. Clinical correlation is required. Performed By: #### A CHRAB #### [facility] CLIA [id number] [address] [place] [address] [place] [address] [place] Acetylcholine receptor binding Ab (S) [Moles/Vol] <0.02 Normal <0.21 [facility] Comment on above: Order Comment: Speci men Type: BLOOD SPECIMEN Ordering Facility: [facility] Address: [address] [place] [address] Performed By: #### A CHRAB #### [facility] CLIA [id number] [address] [place] [address] CNPLaura 12-15-2024 CNPN Telephone (NEIDMN) YOLI ANTUNEZ ([id number]) 1955 Date Time Provider Department 12/15/24 ABBY BERNSTEIN [facility] During your visit today, we recorded the following information about you: Shaylee Sweet 12/15/2024 11:39 AM Signed Type of record received: Labs Records received from: [facility] Records received via: Faxed Records scanned into Tasted Menu: Yes Records have been forwarded to: [place] Allergies As of Date: 12/15/2024 Noted Allergy Reaction PENICILLINS 09/12/2000 16 - Unknown TIKOSYN (DOFETILIDE) 07/26/2022 14 - Other: See Comments Comments: Aphasia, dizzy, muscle cramps VANCOMYCIN 07/26/2022 10 - Anaphylaxis Date Reviewed: 11/10/2024 Reviewed by: Belle Carmona OCCA - Fully Assessed Reason for Visit: Received Outside Medical Records [[id number]] Prescriptions as of 12/16/2024 - sotalol (BETAPACE) 120 mg tablet Take 120 mg by mouth every 12 hours. - midodrine (PROAMITINE) 5 mg tablet Take 5 mg by mouth three times a day. - magnesium oxide (MAG-OX) 400 mg (241.3 mg magnesium) tablet Take 235 mg by mouth two times a day. - levothyroxine (SYNTHROID) 150 mcg tablet Take 150 mcg by mouth daily before breakfast. - ergocalciferol 50,000 unit capsule (VITAMIN D2, [...] 81 mg by mouth once daily. - nitroglycerin sublingual (NITROQUICK) 0.4 mg SL tablet Dissolve 0.4 mg under the tongue every 5 minutes as needed. - levothyroxine (LEVOXYL) 175 mcg tablet Take 1 tablet by mouth daily before breakfast. - pramipexole (MIRAPEX) 1 mg tablet Take 2 mg by mouth daily at bedtime. 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.209] Retinal detachment, [...] without aura, with intractable*05/31/2022 Encounter Status:Closed by SHAYLEE SWEET on 12/16/24 Normal [facility] CNOVon 11-10-2024 CNOV Office Visit (NENMMN ) YOLI ANTUNEZ ([id number]) 1955 M Date Time Provider Department 11/10/24 11:45 AM ABBY BERNSTEIN [facility] During your visit today, we recorded the following information about you: Pulse Blood pressure Weight Height 83/minute 127/86 111.1 kg 1.981 m Abby Bernstein APRN.FUEL TECHNICIAN 11/10/2024 1:31 PM Signed [facility] Follow Up Yoli Antunez is a 69 year old male who presents today for follow up regarding [place] PMH: AAA Arthritis CKD state 3 CAD Personal history of smoking ZONIA GOUT HLD HTN Hypothyroid ADA with BIPAP RLS TIA Chart Review: María Pearl APRN.NEETU IMPRESSION/PLAN: Orthostatic hypotension Tilt table testing indicative of orthostatic hypotension. This would likely explain his symptoms of orthostatic lightheadedness and near syncope. He notes that since the tilt table test, his Benazepril and Diltiazem have been discontinued, but his orthostatic symptoms persist. He was seen by Dr. Vilchis at [facility] who would like to place a [...] medication perspective given his tendency toward hypertension. Today November 10, 2024: Orthostatic Hypotension: - Last seen by María Pearl on 05/31/2023 for orthostatic hypotension. - Pacemaker placed last fall by Dr. Vilchis; no improvement in symptoms. - Reports worsening dizziness and blood pressure fluctuations. - BP this morning was 160/101 mmHg; notes rapid drops in BP. - Taking sotalol and midodrine; midodrine prescribed by Dr. Vilchis for low BP and dizziness, but Jamil reports no improvement. - Drinking approximately half a gallon of water daily. - Avoids compression socks. - Denies LOC episodes. Sick Sinus Syndrome: - Pacemaker placed last fall by Dr. Vilchis; no improvement in symptoms. Falls: - At least a dozen falls in the past year, including one this morning while going up steps. - Denies head trauma during falls. - Reports imbalance and swaying when dizzy. - Difficulty with stairs, especially going up. - Issues getting out of a seated position without using arms if the seat is low. - Denies issues with fine dexterity or reaching overhead. Right Eyelid Ptosis: - Right eyelid ptosis began 6-8 months ago. - Seen by a local neurologist; referral sent to the current clinic. - Reports voice hoarseness and swallowing issues. - No issues with speech or chewing fatigue. - Denies tremors. CKD: - History of CKD. - Following a low sodium diet; no other major dietary restrictions. - Denies urinary issues. Back Pain: - History of lower back surgery (L4, L5). - Denies current back pain. Neuropathy: - Reports random numbness and tingling in the left hand, occurring about once a week. - Denies numbness or tingling in the legs. - Denies muscle twitching; reports leg cramping at night. - Denies tremors. Exercise: - Participated in cardiac rehab but experienced BP drops with activity. - Uses a recumbent exercise bike at home 3 times a week for 30 minutes. 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 Neuromuscular: Difficulty with gait: no Falls: yes Difficulty with stairs: yes Difficulty getting out of seated position: sometimes if its too low Difficulty with manual dexterity (buttons, zippers, cutting food): no Difficulty reaching overhead (opening cabinets, washing hair, brushing teeth): no Ocular weakness (ptosis, diplopia): yes - ptosis right eye Bulbar weakness (fatigue with chewing, dysphagia, dysarthria): swallowing issues, voice goes away and more raspy now. Voice goes away at any point in time of the day. Like he runs out of air trying to talk Dyspnea on exertion and/or orthopnea: with walking at times Numbness/tingling: in left arm once per week. random Pain: no - history of back surgery lower back - L4-L5 Muscle twitching/cramping: legs cramp at night - wrapping the legs at night help the craming Orthostatic lightheadedness: yes GI dysmotility: occasionally Urinary symptoms: no Sleep disorders: no Tremor: no Current management of orthostatic condition Diet: low sodium diet Exercise: tried cardiac rehab Water: half gallon Salt: low salt Stockings: no Current Medications for orthostatic condition Sotalol Midodrine - this has not helped with the dizzy spells at (more content not included)... Normal [facility] Orders Onlyon 11-06-2024 Orders Only [id number] Fr freda Antunez Jr. 1955 M Date Provider Department Center 11/06/2024 LALITO [facility]CDUFFIE [facility] IN [facility] Family History Problem Relation Age of Onset Hypertension Mother Cancer Mother Stroke Mother Hypertension Father Aortic aneurysm Father Cancer Father Aortic aneurysm Paternal Grandfather Sudden Neg Hx Family Status - Relation Status Age at Mother Father Paternal Grandfather Neg Hx Normal [facility] Operative Reporton Operative Report Operative Report SURGERY DATE: 10/07/2024 TIME: 2:30 p.m. PREOPERATIVE DIAGNOSES: 1. Nasal septal deviation 2. Right chronic maxillary sinusitis 3. Odontogenic sinusitis POSTOPERATIVE DIAGNOSES: 1. Nasal septal deviation 2. Right chronic maxillary sinusitis 3. Odontogenic sinusitis OPERATION: 1. Endoscopic septoplasty 2. Right maxillary image-guided antrostomy with excision ANESTHESIA: General BLOOD LOSS: Less than 50 cc COMPLICATIONS: None GROSS FINDINGS: This is a 69-year-old white male with a history of chronic maxillary sinusitis that exists as a result of a piece of tooth which was extracted remaining in the maxillary sinus resulting in infection. The patient has been managed as an outpatient with antibiotic only to have persistent evidence of the piece of tooth in the floor of the sinus as well as congestion. Intraoperatively, there was severe deviation of the nasal septum to the right with a septal spur formation. The maxillary sinus was found to have extensive amounts of inflammatory debris. The fragment of tooth that remained in the maxillary sinus was imbedded in bone and could not be mobilized. PROCEDURE: Yoli was brought to the Operating Room Suite at the [facility] at which time general anesthesia was administered via endotracheal tube. The patient was placed in supine position. The nose was packed with nasal pledgets with topical Afrin. The image-guided system was attached to the patient and calibrated. He was prepped and draped in normal fashion. With this completed, a 30-degree endoscope was inserted into the left nasal airway. This was advanced into the posterior nose. There was no evidence of any ulcer, mass, or lesion. Turbinate was found to be hypertrophic on that side. The scope was then removed. The scope was then inserted into the right nasal airway. Severe deviation of the septum superiorly and posteriorly was noted on that side. This resulted in significant limitation of access to the maxillary sinus. The mucosa of the septum as well as the middle turbinate were locally injected with 1% lidocaine with epinephrine. With this completed, an anterior incision was created on the mucosal septum anterior to the area of deviation. The mucosa was then elevated off the bone and cartilage of the septum. The anterior aspect of this elevation was then scored, and the opposite soft tissues were elevated off the septal bone and cartilage. Portions of the septum were then removed using biting forceps and grasping forceps. This was completed from an anterior to posterior direction. A second access incision was placed more posteriorly to access the septal spur. With the portions of cartilage and bone removed, the mucosal flaps were put back into anatomical position. Significant improvement of the nasal airway was appreciated. With this completed, attention was then turned toward the sinus. Nose was suctioned of all residual secretions. The middle turbinate was medialized. Uncinate process identified. The uncinate was then partially removed using back-biting forceps as well as microdebrider. The uncinate process was removed. There was significant inflammatory mucosa around the area of the maxillary sinus ostium. The maxillary sinus was then entered into under image guidance, and using automated microdebrider the opening into the maxillary sinus was enlarged. Copious amounts of inflammatory disease were removed from the maxillary sinus. The sinus was irrigated. Using 30- and 70-degree endoscopes, the mucosa was visualized. Using instrumentation the fragment of tooth was identified on the image guidance and was palpated. Attempted mobilization of this root of the tooth was not possible secondary to it being fixated in bone. Surrounding soft tissues were removed using suction and microdebrider. The maxillary sinus opening was then enlarged dramatically to allow for adequate drainage. The sinus was then irrigated with copious amounts of sterile saline. Nose and nasopharynx were suctioned of all residual secretions. Sinu-Foam was placed in the middle meatus. Scope was removed. Nasal packing impregnated with antibiotic cream was then placed on the right side and fastened to the outside of the nose. The mouth and throat were suctioned of all residual secretions. Anesthesia was reversed and the patient awoke without difficulty. The patient was taken to Postanesthesia Care Unit in stable and satisfactory condition. Hussain Quezada Dictated: 10/07/2024 [id number] Transcribed: 10/07/2024 [facility] Comment on above: Result Comment: Elec tronically Signed By: Lalito Burris DO\.br\Date and Time Signed: 10/21/24 08:30 EDT H&P Updateon 10-13-2024 H&P Update H&P Update Patient: YOLI ANTUNEZ JR Age: 69 years Sex: Male : 1955 Associated Diagnoses: None Author: Lalito Burris DO Postoperative Information Preoperative Diagnosis: odontogenic sinusitis, right maxillary Deviated nasal septum. Postoperative Diagnosis: same. Performed by: Lalito Burris DO. Estimated Blood Loss: 50 ml. Complications: None. endoscopic septoplasty Image guided right maxillary antrostomy with excision Anesthesia type: General. Normal [facility] Comment on above: Result Comment: wron g folder Electronically Signed By: Lalito Burrsi DO\.br\Date and Time Signed: 10/07/24 14:43 EDT Orders Onlyon 10-13-2024 Orders Only [id number] Fr freda Antunez Jr. 1955 M Date Provider Department Center 10/13/2024 Jan-CRISTINA COR[facility]IGAN [facility] Family History Problem Relation Age of Onset Hypertension Mother Cancer Mother Stroke Mother Hypertension Father Aortic aneurysm Father Cancer Father Aortic aneurysm Paternal Grandfather Sudden Neg Hx Family Status - Relation Status Age at Mother Father Paternal Grandfather Neg Hx Normal [facility] Surgical Pathology Reporton 10-13-2024 Surgical Pathology Report [address] [place] [address]- Surgical Pathology Report Collected Date/Time: 10/07/2024 14:44 EDT Pathologist: Mika VAZQUEZ PhD, Kulwant Hinojosa Received Date/Time: 10/08/2024 08:22 EDT Lalito Burris DO, DO, Paul S 07 Surgical Pathology Report - 10/13/2024 13:02 EDT - Auth (Verified) Final Diagnosis SEPTAL CARTILAGE, BONE, AND SINUS CONTENTS, CURETTAGE: - BENIGN BONE AND CARTILAGE, CONSISTENT WITH DEVIATED SEPTUM. - RESPIRATORY MUCOSA WITH CHRONIC INFLAMMATION, CONSISTENT WITH CHRONIC SINUSITIS. (Electronic Signature) Kulwant Brennan MD PhD 10/13/2024 13:02 Clinical Information right chronic sinusitis Pre-Op Diagnosis: right chronic sinusitis Procedure: right image guided septoplasty, right maxillary antrostomy with excision Post-Op Diagnosis: 1. Nasal septal deviation 2. Right chronic maxillary sinusitis 3. Odontogenic sinusitis Specimen(s) Received septal cartilage and bone and sinus contents Gross Description Received in formalin labeled with patient name, number, and septal cartilage, bone, and sinus contents partially in a sock-like material and within the container are multiple fragments of martin/reddish-brown bone and soft tissue measuring in aggregate 7 x 4 x 1.4 cm and submitted in a total of six cassettes. 1-3 - Soft tissue 4-6 - Soft tissue and bone after decalcification (DC) DC:MCA Microscopic Description Microscopic examination performed unless gross only specified. Quality was accessed and acceptable. This report was transcribed using voice recognition technology and might contain unintended computerized it systems analyst consultant errors. Normal [facility] Comment on above: Performed By: #### [id number] #### [facility] [address] [place] [id number] Main OR Intraoperative Recor don 10-08-2024 Main OR Intraoperative Record Main OR Intraoperative Record IntraOp Document Type FT Summary Primary Physician: Lalito Burris DO Finalized Date/Time: 10/08/24 11:28:03 Pt. Name: YOLI ANTNUEZ JR Richelle Danielson./Sex: 1955 Male Med Rec #: [id number] Physician: Lalito Burris DO Financial #: [id number] Pt. Type: A Room/Bed: [place] [address] Admit/Disch: 10/07/24 11:04:48 - 10/07/24 17:10:00 Institution: Case Times FT Entry 1 Patient Times In Room 10/07/24 12:51:00 Out Room 10/07/24 14:36:00 Procedure Times Start 10/07/24 13:12:00 Stop 10/07/24 14:26:00 Anesthesia Times Start 10/07/24 12:51:00 Stop 10/07/24 14:36:00 Last Modified By: Trisha Mcleod 10/07/24 14:40:22 Case Attendance FT Entry 1 Entry 2 Entry 3 Case Attendee Bhavesh Garnica DO, Paul S Ferrer RN, Triny Nair Role Performed Anesthesiologist Surgeon - Primary Special Diet Cook - Relief [employer]al Food Service Supervisor Time In 10/07/24 12:51:00 10/07/24 12:51:00 10/07/24 12:51:00 Time Out 10/07/24 14:36:00 10/07/24 14:36:00 10/07/24 13:31:00 Procedure FUNCTIONAL ENDOSCOPIC FUNCTIONAL ENDOSCOPIC FUNCTIONAL ENDOSCOPIC SINUS SURGERY SINUS SURGERY SINUS SURGERY IMAG(Right), IMAG(Right), IMAG(Right), SEPTOPLASTY(Right) SEPTOPLASTY(Right) SEPTOPLASTY(Right) 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 Last Modified By: Trisha Mcleod Kelsie E Burgderfer, Kelsie E 10/07/24 14:40:23 10/07/24 14:40:23 10/07/24 14:40:23 Entry 4 Entry 5 Entry 6 Case Attendee Rj CAMPBELL, Trisha Riggs [place] A Role Performed Scrub - Relief Special Diet Cook - Primary Scrub - Primary Time In 10/07/24 12:51:00 10/07/24 13:05:00 10/07/24 13:05:00 Time Out 10/07/24 14:36:00 10/07/24 14:36:00 10/07/24 14:36:00 Procedure FUNCTIONAL ENDOSCOPIC FUNCTIONAL ENDOSCOPIC FUNCTIONAL ENDOSCOPIC SINUS SURGERY SINUS SURGERY SINUS SURGERY IMAG(Right), IMAG(Right), IMAG(Right), SEPTOPLASTY(Right) SEPTOPLASTY(Right) SEPTOPLASTY(Right) Comments LUNCH RELIEF AND HELPING IN THE ROOM Last Modified By: Trisha Mcleod Kelsie E Burgderfer, Kelsie E 10/07/24 14:40:23 10/07/24 14:40:23 10/07/24 14:40:23 Perioperative Protocols FT Pre-Care Text: Implements protective measures prior to operative or invasive procedure, confirms identity before the operative or invasive procedure, verifies operative procedure, surgical site, and laterality Entry 1 Procedure(s) FUNCTIONAL ENDOSCOPIC Patient Identity Birthday, ID Band SINUS SURGERY Verified (select at Check, Patient IMAG(Right), least 2): Participation SEPTOPLASTY(Right) Consents / H and P Anesthesia Consent, Operative Site N/A Verified H&P, Surgery/Procedure Marking Verified Consent Surgical Site Yes Laterality Verified Yes Verified Procedure Verified Yes Correct Patient Yes Position Verified Availability Equipment, Medication Prep Dry n/a Verified (If Applicable) PreOp Antibiotic No Time Out Bhavesh Garnica, Given Participants Lalito Burris DO, Ferrer RN, Rj Grover CST, Harsha Fisher Kelsie E, Jania Sterling Time Out Complete 10/07/24 13:11:00 Outcomes Met? Yes Last Modified By: Trisha Mcleod 10/07/24 13:23:41 Post-Care Text: The patient is free from signs and symptoms of injury caused by extraneous objects Allergy Information FT Pre-Care Text: Verifies allergies Entry 1 Allergies Reviewed? Yes Allergies Reviewed Self/Patient With Outcomes Met? Yes Last Modified By: Trisha Mcleod 10/07/24 13:20:26 Post-Care Text: The patient received appropriate medication(s) safely administered during the perioperative period Surgical Procedures FT Entry 1 Entry 2 Procedure Description Procedure FUNCTIONAL ENDOSCOPIC SEPTOPLASTY SINUS SURGERY IMAGE GUIDED Modifiers Right Right Surgeon Description RIGHT IMAGE GUIDED RIGHT IMAGE GUIDED SEPTOPLASTY, RIGHT SEPTOPLASTY, RIGHT MAXILLARY ANTROSTOMY MAXILLARY ANTROSTOMY WITH EXCISION WITH EXCISION Primary Procedure Yes No Primary Surgeon Lalito Burris DO, DO, Paul S Start 10/07/24 13:12:00 10/07/24 13:12:00 Stop 10/07/24 14:26:00 10/07/24 14:26:00 Anesthesia Type General General Surgical Service ENT ENT Wound Class 2 - Clean-Contaminated 2 - Clean-Contaminated Last Modified By: Trisha Mcleod Kelsie E 10/07/24 14:42:11 10/07/24 14:42:16 General Case Data FT Pre-Care Text: Classifies surgical wound, implements aseptic technique, initiates traffic control Entry 1 Case Information OR OR 2 FT Case Level Level 3 Wound Class 2 - Clean-Contaminated Specialty ENT ASA Class 3 Preop Diagnosis RIGHT CHRONIC SINUSITIS Postop Same As Preop Yes Postop Diagnosis RIGHT CHRONIC SINUSITIS Outcomes Met? Yes Last Modified By: Trisha Mcleod 10/07/24 13:20:58 Post-Care Text: The patient is free from signs and symptoms of infection Skin Assessment (Pre Procedure) F (more content not included)... Normal [facility] Discharge Instructionson Discharge Instructions Discharge Instructions YOLI ANTUNEZ JR :1955 Visit Date:10/07/2024 Inpatient Discharge Instructions Your Care Team Admitting Physician - Lalito Burris DO Referring Physician - Lalito Burris DO Reason for Your Visit RIGHT CHRONIC SINUSITIS Your Diagnosis Acute post-operative pain Chronic right maxillary sinusitis Nasal septal deviation Tests Performed Pathology Tissue Exam -- Results Pending -- Please visit your patient portal for your results or contact your primary care physician. This Is Your Medications List acetaminophen-hydrocodone (Froid 325 mg-5 mg oral tablet) calcitriol (calcitriol 0.25 mcg Cap) doxycycline (doxycycline hyclate 100 mg Cap) levothyroxine (levothyroxine 150 mcg (0.15 mg) Tab) levothyroxine (levothyroxine 175 mcg (0.175 mg) Tab) magnesium oxide metronidazole (MetroNIDAZOLE 500 mg Tab) midodrine (midodrine 5 mg Tab) nitroglycerin (nitroglycerin 0.4 mg sublingual Tab) pramipexole (pramipexole 1 mg Tab) sotalol (sotalol 120 mg Tab) What to do next Instructions From Your Doctor Event Name Event Result Discharge Instructions Freetext Finish antibiotic . Frequent saline nasal spray. no blowing nose. Pain medication as needed Discharge Activity Resume normal activities in 24 hours Discharge Restrictions No driving for 24 hrs Discharge Diet(s) Regular Call Your Doctor For Persistent or heavy bleeding, Temperature above 101.5 degrees, Severe pain at the operative site Discharge Instructions Discharge Instructions New Follow Up Appointments after Discharge Follow Up with Lalito Burris When: Where: [facility] [address] [address] [phone] Business (1) Medications What How Much When Why Instructions Next Dose New acetaminophen-hydrocodone (Froid 325 mg-5 mg oral tablet) 1 Tablets By Mouth Every 4 hours as needed for for pain Acute post-operative pain Duration: [address] [facility] Unchanged calcitriol (calcitriol 0.25 mcg Cap) 2 Capsules By Mouth Once a day (in the evening) Unchanged doxycycline (doxycycline hyclate 100 mg Cap) 1 Capsules By Mouth 2 times a day Unchanged levothyroxine (levothyroxine 150 mcg (0.15 mg) Tab) 1 Tablets By Mouth Every other day Unchanged levothyroxine (levothyroxine 175 mcg (0.175 mg) Tab) 1 Tablets By Mouth Every other day Unchanged magnesium oxide 250 Milligram By Mouth Every day Unchanged metronidazole (MetroNIDAZOLE 500 mg Tab) 1 Tablets Unchanged midodrine (midodrine 5 mg Tab) 1 Tablets By Mouth Every day Unchanged nitroglycerin (nitroglycerin 0.4 mg sublingual Tab) 1 Tablets By Mouth Every 5 minutes as needed for Chest pain Unchanged pramipexole (pramipexole 1 mg Tab) 2 Tablets By Mouth Once a day (in the evening) Unchanged sotalol (sotalol 120 mg Tab) 1 Tablets By Mouth 2 times a day Pharmacy Information [facility]: [address] [place], [place] [phone] Test Results No qualifying data available. Allergies Tikosyn (Disorientation) penicillin (Unknown) vancomycin (Hives) Problems Ongoing - Any problem that you are currently receiving treatment for. BPH with urinary obstruction Gout Head injury Headache Hydronephrosis with obstructing calculus Hypertension Hyperthyroidism Kidney stone Low back pain Nocturia Post-void dribbling Stage 3 chronic kidney disease Historical - Any problem that you are no longer receiving treatment for. Atrial fibrillation High blood pressure Kidney disease Education Materials [place], [place] Lalito Burris, DO FUNCTIONAL ENDOSCOPIC SINUS SURGERY INFORMATION SHEET WHY DO I NEED FUNCTIONAL ENDOSCOPIC SINUS SURGERY? Your doctor has recommended functional endoscopic sinus surgery because maximum medical therapy (prison antibiotics, mucus thinners and nasal sprays) has failed to eradicate your chronic sinusitis. Review of your sinus CT scan as well as endoscopic examinations of the interior of your nose shows persistent sinus disease and/or anatomical abnormalities that prevent the sinuses from draining. HOW IS FUNCTIONAL ENDOSCOPIC SINUS SURGERY PERFORMED? If your nasal septum is deviated, it will need to be straightened in order to allow the passage of surgical instruments and to give you a good nasal airway. Then, using a highly magnified and brightly lighted telescope, the areas within your nose where the sinuses drain will be surgically opened in order to facilitate normal mucus and secretion flow. At the same time, small pieces of diseased sinus tissue will be removed to allow new, un-diseased tissue to grow back in its place. The middle turbinates (structures on either side wall of the nose) may be partially removed if they are so large that they obstruct the area where the sinuses drain. WHAT RISKS ARE INVOLVED IN FUNCTIONAL (more content not included)... Normal [facility] Comment on above: Result Comment: Elec tronically Signed By: Shamika Price RN\.dionne\Date and Time Signed: 10/07/24 16:10 EDT H&P Updateon 10-07-2024 H&P Update H&P Update Patient: YOLI ANTUNEZ JR Age: 69 years Sex: Male : 1955 Associated Diagnoses: None Author: Lalito Burris DO Postoperative Information Preoperative Diagnosis: odontogenic sinusitis, right maxillary Deviated nasal septum. Postoperative Diagnosis: same. Performed by: Lalito Burris DO. Estimated Blood Loss: 50 ml. Complications: None. endoscopic septoplasty Image guided right maxillary antrostomy with excision Anesthesia type: General. Normal [facility] Comment on above: Result Comment: Elec tronically Signed By: Lalito Burris DO\.br\Date and Time Signed: 10/07/24 14:43 EDT Inpatient Patient Summaryon 10-07-2024 Inpatient Patient Summary Inpatient Patient Summary [address] [address] [facility] Clinical Discharge Instructions PERSON INFORMATION Name: YOLI ANTUNEZ JR [facility]#:[id number] PHYSICIANS Admitting Physician: Lalito Burris DO Attending Physician: Lalito Burris DO PCP: FATUMA VAZQUEZ, RADHA Zhang Discharge Diagnosis: Chronic right maxillary sinusitis; Nasal septal deviation Comment: PATIENT EDUCATION INFORMATION Instructions: [facility] Information 2 (Custom) Medication Leaflets: Follow up: With: Address: When: Lalito Burris [facility] 3, [address] [place] [id number] [phone] Business (1) MEDICATION LIST New Medications [facility], [address] [place], [place] [phone], [phone] acetaminophen-hydrocodone (Froid 325 mg-5 mg oral tablet) 1 Tablets By Mouth every 4 hours as needed for pain for 7 Days. Refills: 0. Medications to Continue with No Changes Other Medications calcitriol (calcitriol 0.25 mcg Cap) 2 Capsules By Mouth once a day (in the evening). doxycycline (doxycycline hyclate 100 mg Cap) 1 Capsules By Mouth 2 times a day. levothyroxine (levothyroxine 150 mcg (0.15 mg) Tab) 1 Tablets By Mouth every other day. levothyroxine (levothyroxine 175 mcg (0.175 mg) Tab) 1 Tablets By Mouth every other day., alternated with 150mcg magnesium oxide 250 Milligram By Mouth every day. metronidazole (MetroNIDAZOLE 500 mg Tab) 1 Tablets. midodrine (midodrine 5 mg Tab) 1 Tablets By Mouth every day. nitroglycerin (nitroglycerin 0.4 mg sublingual Tab) 1 Tablets By Mouth every 5 minutes as needed Chest pain. pramipexole (pramipexole 1 mg Tab) 2 Tablets By Mouth once a day (in the evening). sotalol (sotalol 120 mg Tab) 1 Tablets By Mouth 2 times a day. Comment: Carlota [facility] Main OR PACU I Recordon 09-20 Main OR PACU I Record Main OR PACU I Record PACU Phase I Document Type FT Summary Primary Physician: Lalito Burris DO Finalized Date/Time: 10/07/24 16:07:17 Pt. Name: HARMONY PAGEYOLI D.O.B./Sex: 1955 Male Med Rec #: [id number] Physician: Lalito Burris DO Financial #: [id number] Pt. Type: A Room/Bed: [facility] Admit/Disch: 10/07/24 11:04:48 - Institution: Case Times PACU I FT Pre-Care Text: Identifies barriers to communication and implements measures to provide psychological support Develops individualized plan of care, and ensures continuity of care Maintains patient's dignity and privacy, and maintains patient confidentiality Identifies and reports philosophical, cultural, and spiritual beliefs and values Identifies individual values and wishes concerning care Implements aseptic technique, and administers prescribed antibiotic therapy and immunizing agents as ordered Evaluates postoperative tissue perfusion Implements thermoregulation measures, and monitors body temperature Evaluates postoperative respiratory status Evaluates postoperative cardiac status Evaluates postoperative neurological status Assesses pain control, collaborated in initiating patient-controlled analgesia and implements alternative methods of pain control Verifies allergies, administers prescribed medications and solutions, evaluates response to medications Entry 1 In PACU I 10/07/24 14:40:00 Discharge from PACU 10/07/24 15:20:00 I Outcomes Met? Yes Last Modified By: Radha Barry RN 10/07/24 16:07:01 Post-Care Text: The patient demonstrates knowledge of the expected response to the operative or invasive procedure The patient's care is consistent with the individualized perioperative plan of care The patient's right to privacy is maintained The patient's value system, lifestyle, ethnicity, and culture are considered, respected, and incorporated into the perioperative plan of care The patient participates in decisions affecting his or her perioperative plan of care The patient is free from signs and symptoms of infection The patient has wound/tissue perfusion consistent with or improved from baseline levels established preoperatively The patient is at or returning to normothermia at the conclusion of the immediate postoperative period The patient's respiratory function is consistent with or improved from baseline levels established preoperatively The patient's cardiovascular status is consistent with or improved from baseline levels established preoperatively The patient's cardiovascular status is consistent with or improved from baseline levels established preoperatively The patient demonstrates and/or reports adequate pain control throughout the perioperative period The patient received appropriate medication(s), safely administered during the perioperative period Acuity Level PACU I FT Entry 1 Start Time 10/07/24 14:40:00 Stop Time 10/07/24 15:20:00 Acuity Level Acuity Level I Last Modified By: Radha Barry RN 10/07/24 16:07:13 Finalized By: Radha Barry RN Document Signatures Signed By: Radha Barry RN 10/07/24 16:07 Normal [facility] Main OR PACU II Recordon Main OR PACU II Record Main OR PACU II Record PACU Phase II Document Type FT Summary Primary Physician: Lalito Burris DO Finalized Date/Time: 10/07/24 17:19:40 Pt. Name: YOLI ANTUNEZ JR/Sex: 1955 Male Med Rec #: [id number] Physician: Lalito Burris DO Financial #: [id number] Pt. Type: A Room/Bed: [place] [address] Admit/Disch: 10/07/24 11:04:48 - Institution: Case Times PACU II FT Pre-Care Text: Identifies barriers to communication and implements measures to provide psychological support and determines knowledge level Develops individualized plan of care, and ensures continuity of care Maintains patient's dignity and privacy, and maintains patient confidentiality Identifies and reports philosophical, cultural, and spiritual beliefs and values Identifies individual values and wishes concerning care administers prescribed antibiotic therapy and immunizing agents as ordered, Evaluates postoperative tissue perfusion Implements thermoregulation measures, and monitors body temperature Evaluates postoperative respiratory status Evaluates postoperative cardiac status Evaluates postoperative neurological status Assesses pain control, collaborated in initiating patient-controlled analgesia and implements alternative methods of pain control Verifies allergies, administers prescribed medications and solutions, evaluates response to medications Entry 1 In PACU II 10/07/24 15:35:00 Discharge from PACU 10/07/24 17:10:00 II Outcomes Met? Yes Last Modified By: Polly Salgado RN 10/07/24 17:19:38 Post-Care Text: The patient demonstrates knowledge of the expected response to the operative or invasive procedure The patient's care is consistent with the individualized perioperative plan of care The patient's right to privacy is maintained The patient's value system, lifestyle, ethnicity, and culture are considered, respected, and incorporated into the perioperative plan of care The patient participates in decisions affecting his or her perioperative plan of care. The patient is free from signs and symptoms of infection The patient has wound/tissue perfusion consistent with or improved from baseline levels established preoperatively The patient is at or returning to normothermia at the conclusion of the immediate postoperative period The patient's respiratory function is consistent with or improved from baseline levels established preoperatively The patient's cardiovascular status is consistent with or improved from baseline levels established preoperatively The patient's neurological status is consistent with or improved from baseline levels established preoperatively The patient demonstrates and/or reports adequate pain control throughout the perioperative period The patient received appropriate medication(s), safely administered during the perioperative period Finalized By: Polly Salgado RN Document Signatures Signed By: Polly Salgado RN 10/07/24 17:19 Normal [facility] Main OR Preoperative Recordo n 10-07-2024 Main OR Preoperative Record Main OR Preoperative Record PreOp Document Type FT Summary Primary Physician: Lalito Burris DO Finalized Date/Time: 10/07/24 13:20:13 Pt. Name: YOLI ANTUNEZ JR/Sex: 1955 Male Med Rec #: [id number] Physician: Lalito Burris DO Financial #: [id number] Pt. Type: A Room/Bed: [facility]/22 Admit/Disch: 10/07/24 11:04:48 - Institution: Case Times PreOp FT Pre-Care Text: Verifies consent for planned procedure, identifies individual values and wishes concerning care, includes family members in perioperative teaching Entry 1 Patient Times. In Pre Surgery 10/07/24 11:05:00 Out Pre Surgery 10/07/24 12:49:00 Outcomes Met? Yes Last Modified By: Trisha Mcleod 10/07/24 13:20:11 Post-Care Text: The patient participates in decisions affecting his or her perioperative plan of care Finalized By: Trisha Mcleod Document Signatures Signed By: Trisha Mcleod 10/07/24 13:20 Normal [facility] Outpatient Surgery Discharge Instructionon 10-07-2024 Outpatient Surgery Discharge Instruction Outpatient Surgery Discharge Instruction [place] [id number] Patient Discharge Instructions PERSON INFORMATION Name: YOLI ANTUNEZ JR Date of : 1955 Current Date: 10/07/2024 14:50:50 PHYSICIANS Admitting Physician: Lalito Burris DO Discharge Diagnosis: Chronic right maxillary sinusitis; Nasal septal deviation YOLI ANTUNEZ JR has been given the following list of follow-up instructions, prescriptions, and patient education materials: PATIENT FOLLOW-UP INFORMATION Diet: Regular Discharge Activity: Resume normal activities in 24 hours Discharge Restrictions: No driving for 24 hrs Call Your Doctor For: Persistent or heavy bleeding, Temperature above 101.5 degrees, Severe pain at the operative site Additional Instructions: Finish antibiotic Frequent saline nasal spray no blowing nose Pain medication as needed IF UNABLE TO CONTACT YOUR PHYSICIAN AND YOU FEEL IT IS AN EMERGENCY, GO TO THE NEAREST EMERGENCY ROOM OR CALL 911 I, YOLI ANTUNEZ JR, have received the attached patient education materials/instructions and have verbalized understanding: May we do a follow up call? Yes No I was present when discharge instructions were given ___ Patient Signature Date Clinican/Nurse Signature Date Follow up: With: Address: When: Lalito Burris [facility] [address], [address] [place] [phone] Business (1) Pharmacy Information: You may receive a survey from Mel Cavanaugh asking you to rate your care experience. Your feedback is important and will help us understand what we do well and how we can improve the quality of care we provide to you, your loved ones and our community. It???s an honor to serve you. Thank you for choosing [facility] HERE ARE THE MEDICATION CHANGES THAT OCCURRED DURING YOUR HOSPITAL STAY New Medications [facility], [address] [place], [place] [phone], [phone] acetaminophen-hydrocodone (Froid 325 mg-5 mg oral tablet) 1 Tablets By Mouth every 4 hours as needed for pain for 7 Days. Refills: 0. Medications to Continue with No Changes Other Medications calcitriol (calcitriol 0.25 mcg Cap) 2 Capsules By Mouth once a day (in the evening). doxycycline (doxycycline hyclate 100 mg Cap) 1 Capsules By Mouth 2 times a day. levothyroxine (levothyroxine 150 mcg (0.15 mg) Tab) 1 Tablets By Mouth every other day. levothyroxine (levothyroxine 175 mcg (0.175 mg) Tab) 1 Tablets By Mouth every other day., alternated with 150mcg magnesium oxide 250 Milligram By Mouth every day. metronidazole (MetroNIDAZOLE 500 mg Tab) 1 Tablets. midodrine (midodrine 5 mg Tab) 1 Tablets By Mouth every day. nitroglycerin (nitroglycerin 0.4 mg sublingual Tab) 1 Tablets By Mouth every 5 minutes as needed Chest pain. pramipexole (pramipexole 1 mg Tab) 2 Tablets By Mouth once a day (in the evening). sotalol (sotalol 120 mg Tab) 1 Tablets By Mouth 2 times a day. PATIENT EDUCATION INFORMATION Instructions: [place], [place] Lalito Burris, DO FUNCTIONAL ENDOSCOPIC SINUS SURGERY INFORMATION SHEET WHY DO I NEED FUNCTIONAL ENDOSCOPIC SINUS SURGERY? Your doctor has recommended functional endoscopic sinus surgery because maximum medical therapy (prison antibiotics, mucus thinners and nasal sprays) has failed to eradicate your chronic sinusitis. Review of your sinus CT scan as well as endoscopic examinations of the interior of your nose shows persistent sinus disease and/or anatomical abnormalities that prevent the sinuses from draining. HOW IS FUNCTIONAL ENDOSCOPIC SINUS SURGERY PERFORMED? If your nasal septum is deviated, it will need to be straightened in order to allow the passage of surgical instruments and to give you a good nasal airway. Then, using a highly magnified and brightly lighted telescope, the areas within your nose where the sinuses drain will be surgically opened in order to facilitate normal mucus and secretion flow. At the same time, small pieces of diseased sinus tissue will be removed to allow new, un-diseased tissue to grow back in its place. The middle turbinates (structures on either side wall of the nose) may be partially removed if they are so large that they obstruct the area where the sinuses drain. WHAT RISKS ARE INVOLVED IN FUNCTIONAL ENDOSCOPIC SINUS SURGERY? Risks associated with Functional Endoscopic Sinus Surgery are bleeding and infection as in any surgical procedure. The sinuses are located in the skull and are in close proximity to both the eye and the floor of the brain. Your d (more content not included)... Normal [facility] Office Visiton 10-01-2024 Follow-up visit [id number] Fr freda Antunez Jr. 1955 M Date Provider Department Center 10/01/2024 YANDEL [facility]GAS [facility] Family History Problem Relation Age of Onset Hypertension Mother Cancer Mother Stroke Mother Hypertension Father Aortic aneurysm Father Cancer Father Aortic aneurysm Paternal Grandfather Sudden Neg Hx Family Status - Relation Status Age at Mother Father Paternal Grandfather Neg Hx Level of Service:20280 AL OFFICE/OUTPATIENT ESTABLISHED MOD MDM 30 MIN Reason for Visit and Comments: Coronary Artery Disease [187] Chest Pain [332419] Hypotension [407] Atrial Fibrillation [80] Normal [facility] BMPon 09-25-2024 Anion gap [Moles/Vol] 12 mmol/L Normal 6-16 [facility] Comment on above: Performed By: #### 2 [id number] #### [facility] [address] [place] [address] BUN/Creat Ratio 22 No Units High 10-20 [facility] Comment on above: Performed By: #### 2 [id number] #### [facility] [address] [place] [address] Calcium [Mass/Vol] 8.0 mg/dL Low 8.9-11.1 [facility] Comment on above: Performed By: #### 2 [id number] #### [facility] [address] [place] [address] Chloride [Moles/Vol] 106 mmol/L Normal 101-111 [facility] Comment on above: Performed By: #### 2 [id number] #### [facility] [address] [place] [address] CO2 [Moles/Vol] 25 mmol/L Normal 21-31 [facility] Comment on above: Performed By: #### 2 [id number] #### [facility] [address] [place] [address] Creatinine [Mass/Vol] 1.3 mg/dL Normal 0.5-1.3 [facility] Comment on above: Performed By: #### 2 [id number] #### [facility] [address] [place] [address] Glucose [Mass/Vol] 86 mg/dL Normal 55-199 [facility] Comment on above: Performed By: #### 2 [id number] #### [facility] [address] [place] [address] Potassium [Moles/Vol] 4.2 mmol/L Normal 3.5-5.3 [facility] Comment on above: Performed By: #### 2 [id number] #### [facility] [address] [place] [address] Sodium [Moles/Vol] 139 mmol/L Normal 135-145 [facility] Comment on above: Performed By: #### 2 [id number] #### [facility] [address] [place] [address] Urea nitrogen [Mass/Vol] 29 mg/dL High 5-21 [facility] Comment on above: Performed By: #### 2 [id number] #### [facility] [address] [place] [address] CBC w/ Auto Diffon 5 Basophil Absolute 0.0 E9/L Normal 0.0-0.2 [facility] Comment on above: Performed By: #### 2 [id number] #### [facility] [address] [place] [address] Basophils/100 WBC (Bld) 0.6 % Normal 0.0-2.0 [facility] Comment on above: Performed By: #### 2 [id number] #### [facility] [address] [place] [address] Eos Absolute 0.2 E9/L Normal 0.0-0.5 [facility] Comment on above: Performed By: #### 2 [id number] #### [facility] [address] [place] [address] Eosinophils/100 WBC (Bld) 4.0 % Normal 0.0-8.0 [facility] Comment on above: Performed By: #### 2 [id number] #### [facility] [address] [place] [address] Erythrocyte distribution width (RBC) [Ratio] 14.4 % High 10.9-14.2 [facility] Comment on above: Performed By: #### 2 [id number] #### [facility] [address] [place] [address] Hematocrit (Bld) [Volume fraction] 38.6 % Normal 37.7-49.0 [facility] Comment on above: Performed By: #### 2 [id number] #### [facility] [address] [place] [address] Hemoglobin (Bld) [Mass/Vol] 12.8 g/dL Low 13.5-17.5 [facility] Comment on above: Performed By: #### 2 [id number] #### [facility] [address] [place] [address] Lymph Absolute 1.7 E9/L Normal 1.0-4.0 [facility] Comment on above: Performed By: #### 2 549144 #### [facility] [address] [place] [address] Lymphocytes/100 WBC (Bld) 29.0 % Normal 14.0-50.0 [facility] Comment on above: Performed By: #### 2 [id number] #### [facility] [address] [place] [address] MCH (RBC) [Entitic mass] 27.5 pg Normal 27.0-34.0 [facility] Comment on above: Performed By: #### 2 [id number] #### [facility] [address] [place] [address] MCHC (RBC) [Mass/Vol] 33.3 g/dL Normal 31.4-36.0 [facility] Comment on above: Performed By: #### 2 194867 #### [facility] [address] [place] [address] MCV (RBC) [Entitic vol] 82.8 fL Normal 80.0-100.0 [facility] Comment on above: Performed By: #### 2 100065 #### [facility] [address] [place] [address] [place] Absolute 0.9 E9/L Normal 0.2-1.0 [facility] Comment on above: Performed By: #### 2 436201 #### [facility] [address] [place] [address] Monocytes/100 WBC (Bld) 14.4 % High 4.0-14.0 [facility] Comment on above: Performed By: #### 2 [id number] #### [facility] [address] [place] [address] Neutro Absolute 3.1 E9/L Normal 2.0-7.5 [facility] Comment on above: Performed By: #### 2 [id number] #### [facility] [address] [place] [address] Neutro Auto 52.0 % Normal 36.0-75.0 [facility] Comment on above: Performed By: #### 2 [id number] #### [facility] [address] [place] [address] Platelet 202.0 E9/L Normal 150.0-500. 0 [facility] Comment on above: Performed By: #### 2 [id number] #### [facility] [address] [place] [address] Platelet mean volume (Bld) [Entitic vol] 9.0 fL Normal 6.4-10.8 [facility] Comment on above: Performed By: #### 2 [id number] #### [facility] [address] [place] [address] RBC 4.7 E12/L Normal 4.3-5.9 [facility] Comment on above: Performed By: #### 2 [id number] #### [facility] [address] [place] [address] WBC 6.0 E9/L Normal 4.0-11.0 [facility] Comment on above: Performed By: #### 2 [id number] #### [facility] [address] [place] [address] CHEMISTRYOrdered By: SYSTEM SYSTEM on 09-25-2024 Anion gap [Moles/Vol] 12 mmol/L Normal 6 - 16 mEq/L Remisol Chem Calcium [Mass/Vol] 8.0 mg/dL Low 8.9 - 11. 1 mg/dL Remisol Chem Chloride [Moles/Vol] 106 mmol/L Normal 101 - 1 11 mmol/L Remisol Chem CO2 [Moles/Vol] 25 mmol/L Normal 21 - 31 mmol/L Remisol Chem Creatinine [Mass/Vol] 1.3 mg/dL Normal 0.5 - 1.3 mg/dL Remisol Chem GFR/1.73 sq M.predicted MDRD (S/P/Bld) [Vol rate/Area] 59 mL/min/1.73 m2 Normal >=59mL/min /1.73 m2 Remisol Chem Glucose [Mass/Vol] 86 mg/dL Normal 55 - 199 mg/dL Rem[facility] Chem Potassium [Moles/Vol] 4.2 mmol/L Normal 3.5 - 5.3 mmol/L Remisol Chem Sodium [Moles/Vol] 139 mmol/L Normal 135 - 145 mmol/L Remisol Chem Urea nitrogen [Mass/Vol] 29 mg/dL High 5 - 21 mg/dL Remisol Chem Urea nitrogen/Creatinine [Mass ratio] 22 mg/mg High 10 - 20 Remisol Chem HEMATOLOGYOrdered By: SYSTEM SYSTEM on 09-25-2024 Basophils/100 WBC (Bld) 0.6 % Normal 0.0 - 2.0 % Remisol Heme Basophils/Leukocytes Auto (Bld) [Pure # fraction] 0.0 E9/L Normal 0.0 - 0.2 E9/L Rem[facility] Heme Eosinophils (Bld) [#/Vol] 0.2 E9/L Normal 0.0 - 0.5 E9/L Rem[facility] Heme Eosinophils/100 WBC (Bld) 4.0 % Normal 0.0 - 8.0 % [facility] Heme Erythrocyte distribution width (RBC) [Ratio] 14.4 % High 10.9 - 14.2 % [facility]e Hematocrit (Bld) [Volume fraction] 38.6 % Normal 37.7 - 49.0 % [facility]e Hemoglobin (Bld) [Mass/Vol] 12.8 g/dL Low 13.5 - 17.5 gm/dL [facility] Lymphocytes (Bld) [#/Vol] 1.7 E9/L Normal 1.0 - 4.0 E9/L [facility] Heme Lymphocytes/100 WBC (Bld) 29.0 % Normal 14.0 - 50.0 % Rem[facility] Heme MCH (RBC) [Entitic mass] 27.5 pg Normal 27.0 - 34.0 pg Remisol Heme MCHC (RBC) [Mass/Vol] 33.3 g/dL Normal 31.4 - 36.0 gm/dL Rem[facility] Heme MCV (RBC) [Entitic vol] 82.8 fL Normal 80.0 - 100.0 fL [facility] Heme Monocytes (Bld) [#/Vol] 0.9 E9/L Normal 0.2 - 1.0 E9/L Remisol Heme Monocytes/100 WBC (Bld) 14.4 % High 4.0 - 14.0 % [facility] Heme Neutrophils (Bld) [#/Vol] 3.1 E9/L Normal 2.0 - 7.5 E9/L Rem[facility] Heme Neutrophils/100 WBC (Bld) 52.0 % Normal 36.0 - 75.0 % [facility]e Platelet mean volume (Bld) [Entitic vol] 9.0 fL Normal 6.4 - 10.8 fL Remisol Heme Platelets (Bld) [#/Vol] 202.0 E9/L Normal 150.0 - 500.0 E9/L Remisol Heme RBC (Bld) [#/Vol] 4.7 E12/L Normal 4.3 - 5.9 E12/L Rem[facility] Heme WBC corrected for nucl RBC Auto (Bld) [#/Vol] 6.0 E9/L Normal 4.0 - 11.0 E9/L Remisol Heme eGFRon 09-25-2024 eGFR 59 mL/min/1.73 m2 Normal >=59 [facility] Comment on above: Performed By: #### 1 [id number] ####[facility] [address] [place] [address] 36on 09-08-2024 36 Regarding echo resul t from 09/01/2024: Yandel Shen, NEETU Cruz [place] Please let him know ECHO is good, things are unchanged/stable. Follow-up as scheduled or sooner if needed. Thanks! Patient informed. He has follow up with Harriet on 10/01/2024. Normal [facility] [place] ECHO DOPPLER COMPLETEon 0 09-02-[address] [address] Cardiology Report Signed Patient: YOIL ANTUNEZ MR#: [id number] : 1955 Acct:[id number] Age/Sex: 69 / M ADM Date: 09/01/24 Loc: CARD Attending Dr: YANDEL SHEN APRN Ordering Physician: YANDEL SHEN APRN Date of Service: 09/01/24 Procedure(s): CA echo doppler complete Accession Number(s): [id number] cc: RADHA BURRIS ; YANDEL SHEN APRN Patient Name: YOLI ANTUNEZ MR#: [id number] : 1955 Exam Date: 09/01/2024 Ordering Doctor: YANDEL SHEN CNP ECHOCARDIOGRAM REPORT PROCEDURE: CA ECHO DOPPLER COMPLETE INDICATIONS: Left ventricular hypertrophy, pacemaker, watchman COMPARISON: None. DESCRIPTION: COMPLETE ECHOCARDIOGRAM Real-time transthoracic echocardiography with 2D, M-mode, spectral and color flow Doppler performed. QUALITY: Technical quality was good. LEFT VENTRICLE: Normal chamber size. Moderate concentric left ventricular hypertrophy. Normal systolic function. LV EF: Normal left ventricular ejection fraction, (55-60%). DIASTOLIC: Normal diastolic function. ATRIAL SEPTUM: Visually appears intact. LEFT ATRIUM: Normal chamber size. RIGHT ATRIUM: Mild dilatation. RIGHT VENTRICLE: Normal chamber size. Normal right ventricular systolic function. Pacer wire seen. TRICUSPID VALVE: Normal mobility and thickness. No stenosis with mild regurgitation. No evidence of pulmonary hypertension. RVSP 31 mmHg MITRAL VALVE: Normal mobility and thickness. No evidence of mitral valve stenosis. There is no mitral annular calcification. Mild mitral regurgitation. AORTIC VALVE: Normal trileaflet appearance. No visible sclerosis. Normal leaflet mobility. No evidence of aortic valve stenosis. Mild aortic regurgitation. AORTIC ROOT: Mildly dilated aortic root (4.2 cm). Ascending aorta is mildly dilated (3.7 cm). PULMONIC VALVE: Normal thickness and mobility. No stenosis. Mild regurgitation. PERICARDIUM: No evidence of pericardial effusion. IVC: Collapses with inspirations. IVC is normal in size. PLEURA: CONCLUSION: 1. Moderate concentric left ventricular hypertrophy with normal systolic function. LVEF is 55-60%. 2. Normal right ventricular size and systolic function. 3. Normal diastolic function. 4. Mild mitral, tricuspid, aortic and pulmonic regurgitation. 5. Normal right sided pressures. 6. Mildly dilated aortic root and ascending aorta. Adult Echocardiography Procedure Report Left Ventricle LVEDD (3.7 - 5.6 cm): 4.68 cm LVESD (2.2 - 4.0 cm): 3.08 cm LVIVS thickness (0.6 - 1.2 cm): 1.26 cm LVPW thickness (0.5 - 1.0 cm): 1.41 cm e': 0.09 m/s E - e': 5.76 LVOT Max Gradient: 2.58 mm[Hg] LVOT Area (cm2): 0.80 m/s Peak Velocity (LVOT): 0.80 m/s Mean Velocity (LVOT): 0.55 m/s LVOT Diameter 2.68 cm Left Atrium LA Volume Index (2D A2C): 26.07 ml/m2 Left Atrium Systolic Dimension: 4.63 cm Mitral Valve MV E to A Ratio: 1.06 Mitral Valve A-Wave Peak Velocity: 0.49 m/s Mitral Valve E-Wave Peak Velocity: 0.52 m/s Right Ventricle Aorta AO Root Diam: 4.16 cm Ascending Ao Diam: 3.70 cm Aortic Valve AoV Area (Peak Andrey): 5.27 cm2, 5.27 cm2 AoV Area (VTI): 6.53 cm2, 6.53 cm2 Peak Velocity(Antegrade Flow): 0.86 m/s Peak Gradient(Antegrade Flow): 2.95 mm[Hg] Mean Velocity(Antegrade Flow): 0.58 m/s Mean Gradient(Antegrade Flow): 1.54 mm[Hg] Velocity Time Integral: 16.51 cm Tricuspid Valve Peak Velocity (Regurgitant Flow): 2.31 m/s, 2.56 m/s, 2.63 m/s, 2.55 m/s Pulmonic Valve Mean Gradient: 1.78 mm[Hg] Mean Velocity: 0.61 m/s Peak Velocity: 0.93 m/s, 0.82 m/s Peak Gradient: 2.67 mm[Hg], 3.47 mm[Hg] Right Atrium Right Atrium Systolic Pressure: 68.68 ml, 68.68 ml Dictated by: Mono Christie M.D. on 09/02/2024 at 14:45 Approved by: Mono Christie M.D. on 09/02/2024 at 14 (more content not included)... [facility] Radiology, Radiologreny dunn MD - 09/02/2024 [place] [address] Cardiology Report Signed Patient: YOLI ANTUNEZ MR#: [id number] : 1955 Acct:[id number] Age/Sex: 69 / M ADM Date: 09/01/24 Loc: CARD Attending Dr: YANDEL SHEN APRN Ordering Physician: YANDEL SHEN APRN Date of Service: 09/01/24 Procedure(s): CA echo doppler complete Accession Number(s): [id number] cc: RADHA BURRIS ; YANDEL SHEN APRN Patient Name: YOLI ANTUNEZ MR#: [id number] : 1955 Exam Date: 09/01/2024 Ordering Doctor: YANDEL SHEN [facility] ECHOCARDIOGRAM REPORT PROCEDURE: CA ECHO DOPPLER COMPLETE INDICATIONS: Left ventricular hypertrophy, pacemaker, watchman COMPARISON: None. DESCRIPTION: COMPLETE ECHOCARDIOGRAM Real-time transthoracic echocardiography with 2D, M-mode, spectral and color flow Doppler performed. QUALITY: Technical quality was good. LEFT VENTRICLE: Normal chamber size. Moderate concentric left ventricular hypertrophy. Normal systolic function. LV EF: Normal left ventricular ejection fraction, (55-60%). DIASTOLIC: Normal diastolic function. ATRIAL SEPTUM: Visually appears intact. LEFT ATRIUM: Normal chamber size. RIGHT ATRIUM: Mild dilatation. RIGHT VENTRICLE: Normal chamber size. Normal right ventricular systolic function. Pacer wire seen. TRICUSPID VALVE: Normal mobility and thickness. No stenosis with mild regurgitation. No evidence of pulmonary hypertension. RVSP 31 mmHg MITRAL VALVE: Normal mobility and thickness. No evidence of mitral valve stenosis. There is no mitral annular calcification. Mild mitral regurgitation. AORTIC VALVE: Normal trileaflet appearance. No visible sclerosis. Normal leaflet mobility. No evidence of aortic valve stenosis. Mild aortic regurgitation. AORTIC ROOT: Mildly dilated aortic root (4.2 cm). Ascending aorta is mildly dilated (3.7 cm). PULMONIC VALVE: Normal thickness and mobility. No stenosis. Mild regurgitation. PERICARDIUM: No evidence of pericardial effusion. IVC: Collapses with inspirations. IVC is normal in size. PLEURA: CONCLUSION: 1. Moderate concentric left ventricular hypertrophy with normal systolic function. LVEF is 55-60%. 2. Normal right ventricular size and systolic function. 3. Normal diastolic function. 4. Mild mitral, tricuspid, aortic and pulmonic regurgitation. 5. Normal right sided pressures. 6. Mildly dilated aortic root and ascending aorta. Adult Echocardiography Procedure Report Left Ventricle LVEDD (3.7 - 5.6 cm): 4.68 cm LVESD (2.2 - 4.0 cm): 3.08 cm LVIVS thickness (0.6 - 1.2 cm): 1.26 cm LVPW thickness (0.5 - 1.0 cm): 1.41 cm e': 0.09 m/s E - e': 5.76 LVOT Max Gradient: 2.58 mm[Hg] LVOT Area (cm2): 0.80 m/s Peak Velocity (LVOT): 0.80 m/s Mean Velocity (LVOT): 0.55 m/s LVOT Diameter 2.68 cm Left Atrium LA Volume Index (2D A2C): 26.07 ml/m2 Left Atrium Systolic Dimension: 4.63 cm Mitral Valve MV E to A Ratio: 1.06 Mitral Valve A-Wave Peak Velocity: 0.49 m/s Mitral Valve E-Wave Peak Velocity: 0.52 m/s Right Ventricle Aorta AO Root Diam: 4.16 cm Ascending Ao Diam: 3.70 cm Aortic Valve AoV Area (Peak Andrey): 5.27 cm2, 5.27 cm2 AoV Area (VTI): 6.53 cm2, 6.53 cm2 Peak Velocity(Antegrade Flow): 0.86 m/s Peak Gradient(Antegrade Flow): 2.95 mm[Hg] Mean Velocity(Antegrade Flow): 0.58 m/s Mean Gradient(Antegrade Flow): 1.54 mm[Hg] Velocity Time Integral: 16.51 cm Tricuspid Valve Peak Velocity (Regurgitant Flow): 2.31 m/s, 2.56 m/s, 2.63 m/s, 2.55 m/s Pulmonic Valve Mean Gradient: 1.78 mm[Hg] Mean Velocity: 0.61 m/s Peak Velocity: 0.93 m/s, 0.82 m/s Peak Gradient: 2.67 mm[Hg], 3.47 mm[Hg] Right Atrium Right Atrium Systolic Pressure: 68.68 ml, 68.68 ml Dictated by: Mono Christie M.D. on 09/02/2024 at 14:45 Approved by: Mono Christie M.D. on 09/02/2024 at 14:50 Dictated By: MONO CHRISTIE Signed By: 09/02/24 1452 DD/ 49 TD/TT: Medicare Compliance Auditor: [facility] [employer] Radiology Study observation (narrative) [facility] [employer] CA ECHO DOPPLER COMPLETEOrde red By: Radiologist Radiology on 09-02-2024 [employer] Work Phone: CT Maxillofacial region WO a nd W [...] signed in approved by the interpreting radiologist. IMAGING Shamika Hung MD - 08/21/2024 TITLE OF EXAM: CT [...] signed in approved by the interpreting radiologist. [facility] Radiology Study observation (narrative) [facility] CT Maxillofacial region WO a nd W contrast IVOrdered By: Shamika Hung on 08-21-2024 [facility] [employer] Work Phone: CT SINUS WOon 08-21-2024 CT [...] Not Available Comment on above: Order Comment: DENTA L INFECTION ITPon 08-12-2024 [place] [address] Cardiac Rehab Report Signed Patient: YOLI ANTUNEZ MR#: [id number] : 1955 Acct:[id number] Age/Sex: 69 / M ADM Date: 06/26/24 Loc: CR Attending Dr: YANDEL SHEN APRN Ordering Physician: YANDEL SHEN APRN Date of Service: 08/03/24 Procedure(s): ITP Accession Number(s): [id number] cc: [facility] Test Date: 2024-08-03 Pat Name: YOLI ANTUNEZ Department: Room: - Gender: Male Fur Buyer: : 1955 Requested By: Yandel Shen Order Number: [id number] Reading MD: Adrian Russell Interpretive Statements Session Date: 08/03/2024 Patient stopping cardiac rehabilitation on his own. He is encouraged to re-enroll. Electronically Signed On 08-12-2024 10:34:15 EDT by Adrian Russell Dictated By: Adrian Russell D.O. Signed By: 08/12/24 1034 08/12/24 1034 DD/ 1216 TD/TT: Medicare Compliance Auditor: [facility] Radiology, Radiologi MD mona - 08/12/2024 [place] [address] Cardiac Rehab Report Signed Patient: YOLI ANTUNEZ MR#: [id number] : 1955 Acct:[id number] Age/Sex: 69 / M ADM Date: 06/26/24 Loc: CR Attending Dr: YANDEL SHEN APRN Ordering Physician: YANDEL SHEN APRN Date of Service: 08/03/24 Procedure(s): ITP Accession Number(s): [id number] cc: [facility] Test Date: 2024-08-03 Pat Name: YOLI ANTUNEZ Department: Room: - Gender: Male Fur Buyer: : 1955 Requested By: Yandel Shen Order Number: [id number] Reading MD: Adrian Russell Interpretive Statements Session Date: 08/03/2024 Patient stopping cardiac rehabilitation on his own. He is encouraged to re-enroll. Electronically Signed On 08-12-2024 10:34:15 EDT by Adrian Russell Dictated By: Adrian Russell D.O. Signed By: 08/12/24 1034 08/12/24 1034 DD/ 1216 TD/TT: Medicare Compliance Auditor: [employer] ITPOrdered By: Radiologist R adiology on 08-12-2024 [employer] Work Phone: MAGNESIUMon 08-04-2024 Magnesium [Mass/Vol] 2.3 mg/dL Normal 1.5-2.5 Ques t [facility] Comment on above: Order Comment: COLLE CTION KIT GIVEN TO PATIENT. PATIENT ADVISED TO RETURN. URINE VOLUME: NOTV Performed By: #### 1 2306, 95342, 622, 14686 #### [facility] [address], [address] [place] [id number] Interior Design Consultant: Janes Vasquez MD PTH, INTACT WITHOUT CALCIUMo n 08-04-2024 PARATHYROID HORMONE, INTACT 9 pg/mL Low 16- [facility] Comment on above: Result Comment: Interpretive Guide Intact PTH Calcium ------- Normal Parathyroid Normal Normal Hypoparathyroidism Low or Low Normal Low Hyperparathyroidism Primary Normal or High High Secondary High Normal or Low Tertiary High High Non-Parathyroid Hypercalcemia Low or Low Normal High Performed By: #### 1 7306, 99806, 622, 59103 #### [facility] [place] [address] Interior Design Consultant: Janes Vasquez MD RENAL FUNCTION PANELon 08-04 Albumin [Mass/Vol] 4.5 g/dL Normal 3.6-5.1 [facility] Comment on above: Performed By: #### 1 7306, 03715, 622, 23505 #### [facility] [place] [address] Interior Design Consultant: Janes Vasquez MD Calcium [Mass/Vol] 7.9 mg/dL Low 8.6-10.3 [facility] Comment on above: Performed By: #### 1 7306, 78523, 622, 33494 #### [facility] [place] [address] Interior Design Consultant: Janes Vasquez MD Chloride [Moles/Vol] 107 mmol/L Normal 98-110 [facility]ues t [facility] Comment on above: Performed By: #### 1 7306, 55328, 622, 44023 #### [facility] [place] [address] Interior Design Consultant: Janes Vasquez MD CO2 [Moles/Vol] 24 mmol/L Normal 20-32 [facility] Comment on above: Performed By: #### 1 7306, 92276, 622, 33460 #### [facility] [place] [address] Interior Design Consultant: Janes Vasquez MD Creatinine [Mass/Vol] 1.53 mg/dL High 0.70-1.28 [facility] Comment on above: Performed By: #### 1 7306, 42609, 622, 50793 #### [facility] [place] [address] Interior Design Consultant: Janes Vasquez MD GFR/1.73 sq M.predicted among non-blacks MDRD (S/P/Bld) [Vol rate/Area] 48 mL/min/{1.73_m2} Low > OR = 60 [facility] Comment on above: Performed By: #### 1 7306, 25809, 622, 73552 #### [facility] [place] [address] Interior Design Consultant: Janes Vasquez MD Glucose [Mass/Vol] 142 mg/dL High 65-99 [facility] Comment on above: Result Comment: Fasting reference interval For someone without known diabetes, a glucose value >125 mg/dL indicates that they may have diabetes and this should be confirmed with a follow-up test. Performed By: #### 1 7306, 56521, 622, 89426 #### [facility] [place] [address] Interior Design Consultant: Janes Vasquez MD Phosphate [Mass/Vol] 4.3 mg/dL Normal 2.1-4.3 Ques t [facility] Comment on above: Performed By: #### 1 7306, 77680, 622, 27677 #### [facility] [place] [address] Interior Design Consultant: Janes Vasquez MD Potassium [Moles/Vol] 4.0 mmol/L Normal 3.5-5.3 [facility] Comment on above: Performed By: #### 1 7306, 40066, 622, 27928 #### [facility] [place] [address] Interior Design Consultant: Janes Vasquez MD Sodium [Moles/Vol] 141 mmol/L Normal 135-146 [facility] Comment on above: Performed By: #### 1 7306, 72102, 622, 48770 #### [facility] [place] [address] Interior Design Consultant: Janes Vasquez MD Urea nitrogen [Mass/Vol] 32 mg/dL High 7-25 [facility] Comment on above: Performed By: #### 1 7306, 07636, 622, 15330 #### [facility] of [address], [address] [place] [address] Interior Design Consultant: Janes Vasquez MD Urea nitrogen/Creatinine [Mass ratio] 21 mg/mg Normal 6-22 [facility] Comment on above: Performed By: #### 1 7306, 76021, 622, 78455 #### [facility] [address], [address] [place], [place] [phone] Interior Design Consultant: Janes Vasquez MD VITAMIN D,25-OH,TOTAL,IAon 0 08-04-2024 VITAMIN D,25-OH,TOTAL,IA 48 ng/mL Normal 30-100 [facility] Comment on above: Result Comment: Merlene min D Status 25-OH Vitamin D: Deficiency: <20 ng/mL Insufficiency: 20 - 29 ng/mL Optimal: > or = 30 ng/mL For 25-OH Vitamin D testing on patients on D2-supplementation and patients for whom quantitation of D2 and D3 fractions is required, the QuestAssureD(TM) 25-OH VIT D, (D2,D3), LC/MS/MS is recommended: order code 75980 (patients >2yrs). See Note 1 Note 1 For additional information, please refer to http://education.[employer].Apieron/faq/NLZ978 (This link is being provided for informational/ educational purposes only.) Performed By: #### 1 7306, 62909, 622, 73560 #### [facility] [address], [address] [place], [place] [phone] Interior Design Consultant: Janes Vasquez MD ITPon 08-03-2024 Radiology Study observation (narrative) [facility] MR BRAIN W AND WO CONTRASTon 07-14-2024 [...] be warranted. Electronically signed: Osmel Quinn MD. [facility] Comment on above: Order Comment: ORDER IN [facility] ITPon 07-02-2024 [place] [address] Cardiac Rehab Report Signed Patient: YOLI ANTUNEZ MR#: [id number] : 1955 Acct:[id number] Age/Sex: 69 / M ADM Date: 06/26/24 Loc: CR Attending Dr: YANDEL SHEN APRN Ordering Physician: YANDEL SHEN APRN Date of Service: 07/02/24 Procedure(s): [facility] Accession Number(s): [id number] cc: [facility] Test Date: 2024-07-02 Pat Name: YOLI ANTUNEZ Department: Room: - Gender: Male Fur Buyer: : 1955 Requested By: Yandel Shen Order Number: [id number] Reading MD: LARA OJEDA Interpretive Statements Session Date: Electronically Signed On 07-02-2024 22:37:32 EDT by LARA OJEDA Dictated By: Lara Ojeda D.O. Signed By: 07/02/24223607/02/242236 DD/ 113 TD/TT: Medicare Compliance Auditor: [facility] Radiology Radiologreny dunn MD - 07/02/2024 [place] [address] Cardiac Rehab Report Signed Patient: YOLI ANTUNEZ MR#: [id number] : 1955 Acct:[id number] Age/Sex: 69 / M ADM Date: 06/26/24 Loc: CR Attending Dr: YANDEL SHEN APRN Ordering Physician: YANDEL SHEN APRN Date of Service: 07/02/24 Procedure(s): ITP Accession Number(s): [id number] cc: [facility] Test Date: 2024-07-02 Pat Name: YOLI ANTUNEZ Department: Room: - Gender: Male Fur Buyer: : 1955 Requested By: Yandel Shen Order Number: [id number] Reading MD: LARA OJEDA Interpretive Statements Session Date: Electronically Signed On 07-02-2024 22:37:32 EDT by LARA OJEDA Dictated By: Lara Ojeda D.O. Signed By: 07/02/24223607/02/242236 DD/ 37 TD/TT: Medicare Compliance Auditor: [facility] Radiology Study observation (narrative) [facility] ITPOrdered By: Radiologist R adiology on 07-02-2024 [facility] Work Phone: PTH, INTACT (ICMA) AND IONIZ ED CALCIUMon 06-17-2024 Calcium [Mass/Vol] 8.2 mg/dL Low 8.6-10.3 [facility] Comment on above: Performed By: #### 3 6736 #### [facility] [place] [phone] Interior Design Consultant: Janes Vasquez MD CALCIUM, IONIZED 4.5 mg/dL Low 4.7-5.5 [facility] Comment on above: Performed By: #### 3 6736 #### [facility] [address] [address] Interior Design Consultant: Janes Vasquez MD PARATHYROID HORMONE, INTACT 10 pg/mL Low 16- [facility] Comment on above: Result Comment: Interpretive Guide Intact PTH Calcium ------- Normal Parathyroid Normal Normal Hypoparathyroidism Low or Low Normal Low Hyperparathyroidism Primary Normal or High High Secondary High Normal or Low Tertiary High High Non-Parathyroid Hypercalcemia Low or Low Normal High Performed By: #### 3 6736 #### [address], [address] [place] [address] Interior Design Consultant: Janes Vasquez MD ITPon 06-04-2024 [place] [address] Cardiac Rehab Report Signed Patient: YOLI ANTUNEZ MR#: [id number] : 1955 Acct:[id number] Age/Sex: 69 / M ADM Date: 06/01/24 Loc: CR Attending Dr: YANDEL SHEN APRN Ordering Physician: YANDEL SHEN APRN Date of Service: 06/04/24 Procedure(s): ITP Accession Number(s): [id number] cc: [facility] Test Date: 2024-06-04 Pat Name: YOLI ANTUNEZ Department: Room: - Gender: Male Fur Buyer: : 1955 Requested By: Yandel Shen Order Number: [id number] Josy MD: LARA OJEDA Interpretive Statements Session Date: Electronically Signed On 06-04-2024 16:55:23 EST by LARA OJEDA Dictated By: Lara Ojeda D.O. Signed By: 06/04/24165406/04/241654 DD/ 0734 TD/TT: Medicare Compliance Auditor: [facility] Radiology, Radiologi MD mona - 06/04/[address] [address] Cardiac Rehab Report Signed Patient: YOLI ANTUNEZ MR#: [id number] : 1955 Acct:[id number] Age/Sex: 69 / M ADM Date: 06/01/24 Loc: CR Attending Dr: YANDEL SHEN APRN Ordering Physician: YANDEL SHEN APRN Date of Service: 06/04/24 Procedure(s): ITP Accession Number(s): [id number] cc: [facility] Test Date: 2024-06-04 Pat Name: YOLI ANTUNEZ Department: Room: - Gender: Male Fur Buyer: : 1955 Requested By: Yandel Shen Order Number: [id number] Reading MD: LARA OJEDA Interpretive Statements Session Date: Electronically Signed On 06-04-2024 16:55:23 EST by LARA OJEDA Dictated By: Lara Ojeda D.O. Signed By: 06/04/24165406/04/241654 DD/ 3 TD/TT: Medicare Compliance Auditor: [facility] Radiology Study observation (narrative) [facility] ITPOrdered By: Radiologist Liliya adiology on 06-04-2024 [facility] Work Phone: 36on 06-02-2024 36 St[facility] in cardiac rehab made aware. He will address this tomorrow when patient sees them and he'll let me know. [facility] 36on 05-26-2024 36 I offered Ranexa, he was not interested as he tried it in the past and it did not work. We can offer it again. [facility] 36 St[facility] in rehab made aw are. He wasn't able to tolerate Imdur, but would he benefit from Ranexa? [facility] 36on 05-25-2024 36 Yea, unfortunately n ot much further we can do. He's in rehab so that we can try to help improve his symptoms. [facility] 36 Stiven from [facility] Cardiac Rehab wanted you make you aware that patient is c/o daily chest pain and taking nitroglycerin daily. Stiven said patient doesn't seem concerned about this but he wanted to make us aware. I informed St[facility] that unfortunately this is kind of Mr. Antunez's baseline. Any suggestions? [facility] Telephoneon 05-25-2024 Telephone [id number] Fr freda Antunez Jr. 1955 Date Provider Department Center 05/25/2024 Heydi-SHIVANI CRUZ LEX [facility] Family History Problem Relation Age of Onset Hypertension Mother Cancer Mother Stroke Mother Hypertension Father Aortic aneurysm Father Cancer Father Aortic aneurysm Paternal Grandfather Sudden Neg Hx Family Status - Relation Status Age at Mother Father Paternal Grandfather Neg Hx Normal [facility] Office Visiton 04-28-2024 Follow-up visit [id number] Fr freda Antunez Jr. 1955 M Date Provider Department Center 04/28/2024 YANDEL VILLEGAS LEX [facility] Family History Problem Relation Age of Onset Hypertension Mother Cancer Mother Stroke Mother Hypertension Father Aortic aneurysm Father Cancer Father Aortic aneurysm Paternal Grandfather Sudden Neg Hx Family Status - Relation Status Age at Mother Father Paternal Grandfather Neg Hx Level of Service:29425 AL OFFICE/OUTPATIENT ESTABLISHED MOD MDM 30 MIN Reason for Visit and Comments: Coronary Artery Disease [187] Atrial Fibrillation [80] Chest Pain [451617] Normal [facility] 36on 04-11-2024 36 Post Discharge Call Good afternoon, I am Ruben Lopez, RN a lead nurse from [facility]. I am calling you to follow up [...] like to discuss? No Patient Name Yoli Tolbert Harmony Isidro Date 04/11/24 Normal [facility] Telephoneon 04-11-2024 Telephone [id number] Fr camden Antunezomraicoty Tolbert Jr. 1955 M Date Provider Department [place] 04/11/2024 [place]2-RUBEN LOPEZ [facility] Family History Problem Relation Age of Onset Hypertension Mother Cancer Mother Stroke Mother Hypertension Father Aortic aneurysm Father Cancer Father Aortic aneurysm Paternal Grandfather Sudden Neg Hx Family Status - Relation Status Age at Mother Father Paternal Grandfather Neg Hx Normal [facility] 30on 04-10-2024 30 The patient is Moder ately Stable [...] and maintained or improved Outcome: Progressing Normal [facility] BASIC METABOLIC PANELon 12-2 Anion gap [Moles/Vol] 12 mmol/L Normal - [facility] Comment on above: Performed By: #### L [id number] #### [facility] ([facility]AK[facility]) [address] [place] [address] Calcium [Mass/Vol] 7.7 mg/dL Low 8.6-10.3 [facility] Comment on above: Performed By: #### L [id number] #### [facility] ([facility]) [address] [facility] [place] [address] Chloride [Moles/Vol] 106 mmol/L Normal 98-107 [facility] Comment on above: Performed By: #### L [id number] #### [facility] ([facility]) [address] [place] [address] CO2 [Moles/Vol] 26 mmol/L Normal 21- [facility] Comment on above: Performed By: #### L [id number] #### [facility] ([facility]) [address] [place] [address] Creatinine [Mass/Vol] 1.41 mg/dL High 0.70-1.30 [facility] Comment on above: Performed By: #### L [id number] #### [facility] ([facility]) [address] [place] [address] GLOMERULAR FILTRATION RATE ML/MIN/1.73 SQ M.PREDICTED 53.6 mL/min/1.73m*2 Low >60.0 [facility] Comment on above: Result Comment: The [facility]???s estimated glomerular filtration rate (eGFR) will [...] individuals. Performed By: #### L [id number] #### [facility] ([facility]) [address] [place] [address] Glucose [Mass/Vol] 85 mg/dL Normal 70-100 [facility] Comment on above: Performed By: #### L [id number] #### [facility] ([facility]) [address] [place] [address] Potassium [Moles/Vol] 4.2 mmol/L Normal 3.5-5.1 [facility] Comment on above: Performed By: #### L [id number] #### [facility] ([facility]) [address] [place] [address] Sodium [Moles/Vol] 140 mmol/L Normal 136-145 [facility] Comment on above: Performed By: #### L [id number] #### [facility] ([facility]) [address] [place] [address] Urea nitrogen [Mass/Vol] 25 mg/dL Normal 7-25 [facility] Comment on above: Performed By: #### L [id number] #### [facility] ([facility]) [address] [place] [address] UREA NITROGEN/CREATININE (MASS RATIO) IN SER/PLAS 17.7 [facility] Comment on above: Performed By: #### L [id number] #### [facility] ([facility]) [address] [place] [address] 30on 04-09-2024 30 Daily Case Managemen t [...] now Question: Room Service? Answer: Yes 04/09/24 09 Physician Expected Discharge Date: 04/10/2024 Discharge Delays: PT Six Click Score: 24 OT Six Click Score: PT Recommendations: OT Recommendations: New Consults: Consult Orders (From admission, onward) Start Ordered 04/09/24 0919 Inpatient consult to Cardiology Once Specialty: Cardiology Provider: (Not yet assigned) Question Answer Comment [employer] CARDIOLOGY TEAM Reason for Consult? chest pain Level of Consultation Consultation and Management 04/09/24 0918 [facility] 30 The patient is Moder ately [...] and maintained or improved Outcome: Progressing Normal [facility] Abstracton 04-09-2024 Abstract [id number] Fr Harmony fabcoty Tolbert Jr. 1955 M Date Provider Department [place] 04/09/2024 3244-MARION MOSHER [facility] Family History Problem Relation Age of Onset Hypertension Mother Cancer Mother Stroke Mother Hypertension Father Aortic aneurysm Father Cancer Father Aortic aneurysm Paternal Grandfather Sudden Neg Hx Family Status - Relation Status Age at Mother Father Paternal Grandfather Neg Hx Normal [facility] BASIC METABOLIC PANELon 03-22 Anion gap [Moles/Vol] 12 mmol/L Normal 7-20 [facility] Comment on above: Performed By: #### L [id number] #### [facility] ([facility]) [address] [place] [address] Calcium [Mass/Vol] 7.6 mg/dL Low 8.6-10.3 [facility] Comment on above: Performed By: #### L [id number] #### [facility] ([facility]) [address] [place] [address] Chloride [Moles/Vol] 108 mmol/L High 98-107 [facility] Comment on above: Performed By: #### L [id number] #### [facility] ([facility]) [address] [place] [address] CO2 [Moles/Vol] 25 mmol/L Normal 21-31 [facility] Comment on above: Performed By: #### L [id number] #### [facility] ([facility]) [address] [place] [address] Creatinine [Mass/Vol] 1.34 mg/dL High 0.70-1.30 [facility] Comment on above: Performed By: #### L [id number] #### [facility] ([facility]) [address] [place] [address] GLOMERULAR FILTRATION RATE ML/MIN/1.73 SQ M.PREDICTED 57.0 mL/min/1.73m*2 Low >60.0 [facility] Comment on above: Result Comment: The [facility]???s estimated glomerular filtration rate (eGFR) will [...] individuals. Performed By: #### L [id number] #### [facility] ([facility]) [address] [place] [address] Glucose [Mass/Vol] 86 mg/dL Normal 70-100 [facility] Comment on above: Performed By: #### L [id number] #### [facility] ([facility]) [address] [place] [address] Potassium [Moles/Vol] 4.1 mmol/L Normal 3.5-5.1 [facility] Comment on above: Performed By: #### L [id number] #### [facility] ([facility]) [address] [place] [address] Sodium [Moles/Vol] 141 mmol/L Normal 136-145 [facility] Comment on above: Performed By: #### L [id number] #### [facility] ([facility]) [address] [place] [address] Urea nitrogen [Mass/Vol] 27 mg/dL High 7-25 [facility] Comment on above: Performed By: #### L [id number] #### [facility] ([facility]) [address] [place] [address] UREA NITROGEN/CREATININE (MASS RATIO) IN SER/PLAS 20.1 Normal [facility] Comment on above: Performed By: #### L [id number] #### [facility] ([facility]) [address] [place] [address] CONSULTon 04-09-2024 CONSULT ------- Attestation signed by [...] Teaching Physician's Revisions: none Erika Mesa MD [place] Cardiology Cardiology Consult Note Reason for Consult: chest pain HPI: Yoli Antunez Jr. is a 68 y.o. male for primary hypertension, atrial fibrillation on sotalol status post watchman not on anticoagulation, sinus node dysfunction status post dual-chamber permanent pacemaker, coronary artery disease status post cardiac catheterization 08/2023, POTS who presented to [facility] ED with ongoing chest pain that has [...] -- - (more content not included)... Normal [facility] TROPONIN Ion 04-09-2024 Troponin I.cardiac [Mass/Vol] 0.00 ng/mL Normal 0.00-0.04 [facility] Comment on above: Performed By: #### L [id number] #### [facility] ([facility]) [address] [place] [address] Troponin I.cardiac [Mass/Vol] 0.00 ng/mL Normal 0.00-0.04 [facility] Comment on above: Performed By: #### L [id number] #### [facility] ([facility]) [address] [place] [address] 30on 04-08-2024 30 The patient is Moder ately Stable - Low risk of patient condition declining or worsening The patient's goals for the shift include COMFORT The clinical goals for the shift include VSS Normal [facility] 30 The patient is Moder ately Stable - Low risk of patient condition declining or worsening The patient's goals for the shift include COMFORT The clinical goals for the shift include VSS Normal [facility] APTTon 04-08-2024 ACTIVATED PARTIAL THROMBOPLASTIN TIME IN PPP BY COAGULATION ASSAY 31.1 Seconds Normal 25.0-35.0 [facility] Comment on above: Result Comment: Clin ical significance of the APTT is questionable in the presence of heparin. Performed By: #### L [id number] #### [facility] ([facility]) [address] [place] [address] B-TYPE NATRIURETIC PEPTIDEon 04-08-2024 Natriuretic peptide B (Bld) [Mass/Vol] 66 pg/mL Normal 0-100 [facility] Comment on above: Performed By: #### L [id number] ####[facility] ([facility])[address] [place] [address] BASIC METABOLIC PANELon 03-22 Anion gap [Moles/Vol] 13 mmol/L Normal 7-20 [facility] Comment on above: Performed By: #### L [id number] #### [facility] ([facility]) [address] [place] [address] Calcium [Mass/Vol] 8.3 mg/dL Low 8.6-10.3 [facility] Comment on above: Performed By: #### L [id number] #### [facility] ([facility]) [address] [place] [address] Chloride [Moles/Vol] 107 mmol/L Normal 98-107 [facility] Comment on above: Performed By: #### L [id number] #### [facility] ([facility]) [address] [place] [address] CO2 [Moles/Vol] 24 mmol/L Normal 21-31 [facility] Comment on above: Performed By: #### L [id number] #### [facility] ([facility]) [address] [place] [address] Creatinine [Mass/Vol] 1.60 mg/dL High 0.70-1.30 [facility] Comment on above: Performed By: #### L [id number] #### [facility] [address] [place] [address] GLOMERULAR FILTRATION RATE ML/MIN/1.73 SQ M.PREDICTED 46.1 mL/min/1.73m*2 Low >60.0 [facility] Comment on above: Result Comment: The [facility]???s estimated glomerular filtration rate (eGFR) will [...] individuals. Performed By: #### L [id number] #### [facility] ([facility]) [address] [place] [address] Glucose [Mass/Vol] 85 mg/dL Normal 70-100 [facility] Comment on above: Performed By: #### L [id number] #### [facility] ([facility]) [address] [place] [address] Potassium [Moles/Vol] 4.0 mmol/L Normal 3.5-5.1 [facility] Comment on above: Performed By: #### L [id number] #### [facility] ([facility]) [address] [place] [address] Sodium [Moles/Vol] 140 mmol/L Normal 136-145 [facility] Comment on above: Performed By: #### L [id number] #### [facility] [address] [place] [address] Urea nitrogen [Mass/Vol] 29 mg/dL High 7-25 [facility] Comment on above: Performed By: #### L [id number] #### [facility] ([facility]) [address] [place] [address] UREA NITROGEN/CREATININE (MASS RATIO) IN SER/PLAS 18.1 Normal [facility] Comment on above: Performed By: #### L [id number] #### [facility] ([facility]) [address] [place] [address] CBC WITH AUTO DIFFERENTIALon 04-08-2024 Basophils (Bld) [#/Vol] 0.05 10*3/uL Normal 0.00-0.20 [facility] Comment on above: Performed By: #### L [id number] #### [facility] ([facility]) [address] [place] [address] Basophils/100 WBC (Bld) 0.7 % Normal 0.0-1.0 [facility] Comment on above: Performed By: #### L [id number] #### [facility] ([facility]) [address] [place] [address] Eosinophils (Bld) [#/Vol] 0.24 10*3/uL Normal 0.00-0.50 [facility] Comment on above: Performed By: #### L [id number] #### [facility] ([facility]) [address] [place] [address] Eosinophils/100 WBC (Bld) 3.6 % Normal 0.0-6.0 [facility] Comment on above: Performed By: #### L [id number] #### [facility] ([facility]) [address] [place] [address] Erythrocyte distribution width (RBC) [Ratio] 15.5 % High 11.5-15.0 [facility] Comment on above: Performed By: #### L [id number] #### [facility] ([facility]) [address] [place] [address] ERYTHROCYTE MEAN CORPUSCULAR HEMOGLOBIN CONCENTRATION (G/DL) BY AUTOMATED 32.6 g/dL Normal 32.0-35.0 [facility] Comment on above: Performed By: #### L [id number] #### [facility] ([facility]) [address] [place] [address] Hematocrit (Bld) [Volume fraction] 42.7 % Normal 39.0-55.0 [facility] Comment on above: Performed By: #### L [id number] #### [facility] (BEAKER) [address] [place] [address] Hemoglobin (Bld) [Mass/Vol] 13.9 g/dL Normal 13.0-17.0 [facility] Comment on above: Performed By: #### L [id number] #### [facility] [address] [place] [address] Immature granulocytes (Bld) [#/Vol] 0.05 10*3/uL Normal 0.00-0.20 [facility] Comment on above: Performed By: #### L [id number] #### [facility] ([facility]) [address] [place] [address] Immature granulocytes/100 WBC (Bld) 0.7 % Normal 0.0-1.0 [facility] Comment on above: Performed By: #### L [id number] #### [facility] ([facility]) [address] [place] [address] Lymphocytes (Bld) [#/Vol] 1.73 10*3/uL Normal 1.20-4.00 [facility] Comment on above: Performed By: #### L [id number] #### [facility] ([facility]) [address] [place] [address] Lymphocytes/100 WBC (Bld) 25.7 % Normal 20.0-45.0 [facility] Comment on above: Performed By: #### L [id number] #### [facility] [address] [place] [address] MCH (RBC) [Entitic mass] 28.1 pg Normal 27.0-33.0 [facility] Comment on above: Performed By: #### L [id number] #### [facility] ([facility]ER) [address] [place] [address] MCV (RBC) [Entitic vol] 86.3 fL Normal 82.0-98.0 [facility] Comment on above: Performed By: #### L [id number] #### [facility] (BEAKER) [address] [place] [address] Monocytes (Bld) [#/Vol] 0.58 10*3/uL Normal 0.10-1.00 [facility] Comment on above: Performed By: #### L [id number] #### [facility] ([facility]) [address] [place] [address] Monocytes/100 WBC (Bld) 8.6 % Normal 5.0-12.0 [facility] Comment on above: Performed By: #### L [id number] #### [facility] ([facility]) [address] [place] [address] Neutrophils (Bld) [#/Vol] 4.09 10*3/uL Normal 1.60-7.60 [facility] Comment on above: Performed By: #### L [id number] #### [facility] [address] [place] [address] Neutrophils/100 WBC (Bld) 60.7 % Normal 40.0-72.0 [facility] Comment on above: Performed By: #### L [id number] #### [facility] [address] [place] [address] NRBC (PER 100 WBCS) BY AUTOMATED COUNT 0.0 % Normal 0 [facility] Comment on above: Performed By: #### L [id number] #### [facility] [address] [place] [address] PLATELETS (10*3/UL) IN BLOOD AUTOMATED COUNT 215 10*3/uL Normal 150-400 [facility] Comment on above: Performed By: #### L [id number] #### [facility] ([facility]) [address] [place] [address] RBC (Bld) [#/Vol] 4.95 10*6/uL Normal 4.20-5.[address] [facility] Comment on above: Performed By: #### L [id number] #### [facility] ([facility]ER) [address] [place] [address] WBC (Bld) [#/Vol] 6.74 10*3/uL Normal 4.00-10.[address] [facility] Comment on above: Performed By: #### L [id number] #### [facility] ([facility]AKER) [address] [place] [address] CTA CHEST W IV CONTRASTon CTA CHEST [...] reasonably achievable. Electronically signed: Jeramie Gleason. Normal [facility] D-DIMER, QUANTITATIVEon 03-22 FIBRIN D-DIMER (UG/L FEU) IN PLATELET POOR PLASMA 0.27 mcg/mL FEU Normal 0.27-0.49 [facility] Comment on above: Order Comment: D-Dim er values of less than 0.50 ug/ml (FEU) are considered to be a negative predictor of thrombosis. However, the D-Dimer result should be used in conjunction with pretest probability and should not be used alone to diagnose a thrombotic event. Performed By: #### L [id number] ####[facility] ([facility]AKER)[address] [place] [address] EDNURSon 04-08-2024 EDNURS Pt has complaints of CP and SOB for the past week. Pt has hx of afib and has a pacemaker. Pt states that MD had a concerning EKG and wanted the pt to get checked out. Normal [facility] EDPROVon 04-08-2024 EDPROV History of Present I llness Chief Complaint Patient presents with Chest Pain Shortness of Breath Initial evaluation completed by Dr. Syd Mcgregor MD at 1535. Yoli Antunez Jr. is a 68 y.o. y/o male presenting [...] SOB, and light headedness. 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 Mcgregor. Workup including CTA chest was unremarkable. Pt was discussed with the hospitalist for admission. [TS] ED Course User Index [TS] Joselo Ortiz DO Diagnoses as of 04/08/241920 Acute electrocardiogram changes Chest pain, unspecified type Medical Decision Making I, Damian doe, documented on behalf of Dr. Mcgregor. Chief complaint chest pain Differential Diagnosis includes but is not limited to NV, PE, costochondritis. Plan of Care: XR chest 1 view, CBC and differential, Basic metabolic panel, Troponin I, CBC auto differential, Protime-INR, APTT, B-type natriuretic peptide, D-dimer, quantitati (more content not included)... Normal [facility] Office Visiton 04-08-2024 Follow-up visit [id number] Fr freda Antunez Jr. 1955 M Date Provider Department Center 04/08/2024 [facility] Family History Problem Relation Age of Onset Hypertension Mother Cancer Mother Stroke Mother Hypertension Father Aortic aneurysm Father Cancer Father Aortic aneurysm Paternal Grandfather Sudden Neg Hx Family Status - Relation Status Age at Mother Father Paternal Grandfather Neg Hx Level of Service:55376 AL OFFICE/OUTPATIENT ESTABLISHED MOD MDM 30 MIN Reason for Visit and Comments: Follow-up [205534] - Dizziness shortness of breath Normal [facility] PROTIME-INRon 04-08-2024 INR IN PPP BY COAGULATION ASSAY 1.03 Normal 0.90-1.10 [facility] Comment on above: Result Comment: ACCC [...] CHEST 1995;[id number]. Performed By: #### L [id number] ####[facility] ([facility])[address] [place] [address] PROTHROMBIN TIME (PT) IN PPP BY COAGULATION ASSAY 13.5 Seconds Normal 12.3-14.8 [facility] Comment on above: Performed By: #### L [id number] ####[facility] ([facility])[address] [place] [address] TROPONIN Ion 04-08-2024 Troponin I.cardiac [Mass/Vol] 0.00 ng/mL Normal 0.00-0.04 [facility] Comment on above: Performed By: #### L [id number] #### [facility] ([facility]) [address] [facility] [place] [address] Troponin I.cardiac [Mass/Vol] 0.01 ng/mL Normal 0.00-0.04 [facility] Comment on above: Performed By: #### L [id number] #### [facility] ([facility]) [address] [place] [address] C. DIFFICILE PCRon C. DIFFICILE PCR Negative [facility] Abstracton 03-11-2024 Abstract [id number] Fr freda Antunez Jr. 1955 M Date Provider Department Center 03/11/2024 [facility]. Family History Problem Relation Age of Onset Hypertension Mother Cancer Mother Stroke Mother Hypertension Father Aortic aneurysm Father Cancer Father Aortic aneurysm Paternal Grandfather Sudden Neg Hx Family Status - Relation Status Age at Mother Father Paternal Grandfather Neg Hx Normal [facility] Office Visiton 03-11-2024 Follow-up visit [id number] Fr freda Antunez Jr. 1955 M Date Provider Department Center 03/11/2024 287-SHUKRI VILCHIS [facility]. Family History Problem Relation Age of Onset Hypertension Mother Cancer Mother Stroke Mother Hypertension Father Aortic aneurysm Father Cancer Father Aortic aneurysm Paternal Grandfather Sudden Neg Hx Family Status - Relation Status Age at Mother Father Paternal Grandfather Neg Hx Level of Service:[id number] AL OFFICE/OUTPATIENT ESTABLISHED MOD MDM 30 MIN Normal [facility] Abstracton 02-26-2024 Abstract [id number] Fr freda Antunez JrAmarjit 1955 M Date Provider Department Center 02/26/2024 3244-MARION MOSHER [facility] Family History Problem Relation Age of Onset Hypertension Mother Cancer Mother Stroke Mother Hypertension Father Aortic aneurysm Father Cancer Father Aortic aneurysm Paternal Grandfather Sudden Neg Hx Family Status - Relation Status Age at Mother Father Paternal Grandfather Neg Hx Normal [facility] Office Visiton 02-26-2024 Follow-up visit [id number] HarmonyFr freda Tolbert 1955 M Date Provider Department [place] 02/26/2024 [id number] VILCHIS [facility] Family History Problem Relation Age of Onset Hypertension Mother Cancer Mother Stroke Mother Hypertension Father Aortic aneurysm Father Cancer Father Aortic aneurysm Paternal Grandfather Sudden Neg Hx Family Status - Relation Status Age at Mother Father Paternal Grandfather Neg Hx Level of Service:97303 AL OFFICE/OUTPATIENT ESTABLISHED MOD MDM 30 MIN Normal [facility] Office [place] 02-04-2024 Follow-up visit [id number] Fr freda Antunez JrAmarjit 1955 M Date Provider Department [facility] 02/04/[address] [facility] Family History Problem Relation Age of Onset Hypertension Mother Cancer Mother Stroke Mother Hypertension Father Aortic aneurysm Father Cancer Father Aortic aneurysm Paternal Grandfather Sudden Neg Hx Family Status - Relation Status Age at Mother Father Paternal Grandfather Neg Hx Level of Service:72774 AL OFFICE/OUTPATIENT ESTABLISHED LOW MDM 20 MIN Normal [facility] 36on 01-31-2024 36 Post Discharge Call Good morning, I am Giulia Tinoco, RN a lead nurse from [facility]. I am calling you to follow up [...] care of it himself. Patient Name Yoli Tolbert Harmony Isidro Date 01/31/24 [facility] Orders Onlyon 01-31-2024 Orders Only [id number] Fr freda Antunez Jr. 1955 M Date Provider Department [place] 01/31/2024 AMANDA PRETTY [facility] HeartVAS Family History Problem Relation Age of Onset Hypertension Mother Cancer Mother Stroke Mother Hypertension Father Aortic aneurysm Father Cancer Father Aortic aneurysm Paternal Grandfather Sudden Neg Hx Family Status - Relation Status Age at Mother Father Paternal Grandfather Neg Hx Normal [facility] Telephoneon 01-31-2024 Telephone [id number] Fr freda Antunez Jr. 1955 M Date Provider Department [place] 01/31/2024 GIULIA AVILA [facility] Medical C Family History Problem Relation Age of Onset Hypertension Mother Cancer Mother Stroke Mother Hypertension Father Aortic aneurysm Father Cancer Father Aortic aneurysm Paternal Grandfather Sudden Neg Hx Family Status - Relation Status Age at Mother Father Paternal Grandfather Neg Hx Reason for Visit and Comments: Hospital Follow-up [832] - Hospital follow up [facility] 30on 01-30-2024 30 The patient is [...] and maintained or improved Outcome: Progressing Normal [facility] BASIC METABOLIC PANELon 01-20 Anion gap [Moles/Vol] 10 mmol/L Normal 7-20 [facility] Comment on above: Performed By: #### L [id number] ####[facility] (BEAKER)[address] [place] [address] Calcium [Mass/Vol] 7.2 mg/dL Low 8.6-10.3 [facility] Comment on above: Performed By: #### L [id number] ####[facility] (BEAKER)[address] [place] [address] Chloride [Moles/Vol] 110 mmol/L High 98-107 [facility] Comment on above: Performed By: #### L [id number] ####[facility] (BEAKER)[address] [place] [address] CO2 [Moles/Vol] 24 mmol/L Normal 21-31 [facility] Comment on above: Performed By: #### L [id number] ####[facility] (BEAKER)[address] [place] [address] Creatinine [Mass/Vol] 1.21 mg/dL Normal 0.70-1.30 [facility] Comment on above: Performed By: #### L [id number] ####[facility] (BEAKER)[address] [place] [address] GLOMERULAR FILTRATION RATE ML/MIN/1.73 SQ M.PREDICTED 64.4 mL/min/1.73m*2 Normal >60.0 [facility] Comment on above: Result Comment: The [facility]???s estimated glomerular filtration rate (eGFR) will [...] of individuals. Performed By: #### L [id number] ####[facility] ([facility])[address] [place] [address] Glucose [Mass/Vol] 77 mg/dL Normal 70-100 [facility] Comment on above: Performed By: #### L [id number] ####[facility] ([facility])[address] [place] [address] Potassium [Moles/Vol] 3.6 mmol/L Normal 3.5-5.1 [facility] Comment on above: Performed By: #### L [id number] ####[facility] ([facility])[address] [place] [address] Sodium [Moles/Vol] 140 mmol/L Normal 136-145 [facility] Comment on above: Performed By: #### L [id number] ####[facility] [place] [address] Urea nitrogen [Mass/Vol] 29 mg/dL High 7-25 [facility] Comment on above: Performed By: #### L [id number] ####[facility] ([facility])[address] [place] [address] UREA NITROGEN/CREATININE (MASS RATIO) IN SER/PLAS 24.0 Normal [facility] Comment on above: Performed By: #### L [id number] ####[facility] (JASPER)[address] [place] [address] CONSULTon 01-30-2024 CONSULT IN Electrophysiology Consult Note Reason for visit: Afib HPI: Yoli Antunez Jr. is a 68 [...] had A-fib ablation by [facility] in [place] with PVI plus posterior box isolation was [...] MR HEAD ANGIO WO IV CONTRAST 07/09/2022 [facility] MR IMAGING MR NECK ANGIO WO IV CONTRAST 07/09/2022 MR NECK ANGIO WO IV CONTRAST 07/09/2022 [facility] MR IMAGING NECK SURGERY THYROIDECTOMY SH: Social [...] Year: No Utilities: Not At Risk (01/27/2024) [facility] Utilities Threatened with loss of utilities: No [...] by mo (more content not included)... Normal [facility] MAGNESIUMon 01-30-2024 Magnesium [Mass/Vol] 1.9 mg/dL Normal 1.9-2.7 [facility] Comment on above: Performed By: #### L [id number] #### [facility] (BEAKER) [address] [place] [address] 30on 01-29-2024 30 The patient is Moder [...] and behaviors that affect risk of falls Hanson fall precautions as indicated by assessment Educate [...] maintained or improved Outcome: Progressing Flowsheets (Taken 01/29/20242100) Care Plan - Patient's Chronic Conditions and Co-Morbidity Symptoms are Monitored and Maintained or Improved: Monitor and assess patient's chronic conditions and comorbid symptoms for stability, deterioration, or improvement Collaborate with multidisciplinary team to address chronic and comorbid conditions and prevent exacerbation or deterioration [facility] 30 Daily Case Managemen t Update [...] of Consultation Consultation and Management 01/29/24 0806 [facility] 30 The patient is Moder ately Stable - Low risk of patient condition declining or worsening The patient's goals for the shift include comfort The clinical goals for the shift include hemodynamically stable Problem: Pain - Adult Goal: Verbalizes/displays adequate comfort level or baseline comfort level Outcome: Progressing Problem: Safety - Adult Goal: Free from fall injury Outcome: Progressing Flowsheets (Taken 01/29/202411) Free from fall injury: Assess patient frequently for physical needs Identify cognitive and physical deficits and behaviors that affect risk of falls Problem: Discharge Planning Goal: Discharge to home or other facility with appropriate resources Outcome: Progressing Problem: Chronic Conditions and Co-morbidities Goal: Patient's chronic conditions and co-morbidity symptoms are monitored and maintained or improved Outcome: Progressing Normal [facility] 30 The patient is Moder ately [...] and behaviors that affect risk of falls Hanson fall precautions as indicated by assessment Educate [...] conditions and prevent exacerbation or deterioration Normal [facility] BASIC METABOLIC PANELon 10-0 Anion gap [Moles/Vol] 11 mmol/L Normal 7-20 [facility] Comment on above: Performed By: #### L [id number] #### [facility] ([facility]) [address] [place] [address] Calcium [Mass/Vol] 7.3 mg/dL Low 8.6-10.3 [facility] Comment on above: Performed By: #### L [id number] #### [facility] ([facility]) [address] [place] [address] Chloride [Moles/Vol] 108 mmol/L High 98-107 [facility] Comment on above: Performed By: #### L [id number] #### [facility] ([facility]) [address] [place] [address] CO2 [Moles/Vol] 26 mmol/L Normal 21- [facility] Comment on above: Performed By: #### L [id number] #### [facility] ([facility]) [address] [place] [address] Creatinine [Mass/Vol] 1.38 mg/dL High 0.70-1.30 [facility] Comment on above: Performed By: #### L [id number] #### [facility] ([facility]) [address] [place] [address] GLOMERULAR FILTRATION RATE ML/MIN/1.73 SQ M.PREDICTED 55.0 mL/min/1.73m*2 Low >60.0 [facility] Comment on above: Result Comment: The [facility]???s estimated glomerular filtration rate (eGFR) will [...] individuals. Performed By: #### L [id number] #### [facility] ([facility]) [address] [place] [address] Glucose [Mass/Vol] 95 mg/dL Normal 70-100 [facility] Comment on above: Performed By: #### L [id number] #### [facility] ([facility]) [address] [place] [address] Potassium [Moles/Vol] 3.9 mmol/L Normal 3.5-5.1 [facility] Comment on above: Performed By: #### L [id number] #### [facility] ([facility]) [address] [place] [address] Sodium [Moles/Vol] 141 mmol/L Normal 136-145 [facility] Comment on above: Performed By: #### L [id number] #### [facility] ([facility]) [address] [place] [address] Urea nitrogen [Mass/Vol] 31 mg/dL High 7-25 [facility] Comment on above: Performed By: #### L [id number] #### [facility] ([facility]) [address] [place] [address] UREA NITROGEN/CREATININE (MASS RATIO) IN SER/PLAS 22.5 Normal [facility] Comment on above: Performed By: #### L [id number] #### [facility] ([facility]) [address] [place] [address] MAGNESIUMon 01-29-2024 Magnesium [Mass/Vol] 1.9 mg/dL Normal 1.9-2.7 [facility] Comment on above: Performed By: #### L [id number] #### [facility] ([facility]) [address] [place] [address] 30on 01-28-2024 30 Daily Case Managemen t Update Multidisciplinary rounds have been completed. Barriers to Discharge: Pending clinical course and improvement in clinical condition. Plan for cardiac catheterization and echocardiogram today; pending results and recommendations per Cardiology. Discharge plan is home when medically ready. Diet: Dietary Orders (From admission, onward) Start Ordered 01/28/24 105 Special Kitchen Request Once 01/28/24 1049 01/28/24 1050 Regular Diet Heart Healthy/HTN, CABG,Stroke, (2gNA, low fat, low cholesterol) Diet effective now Question Answer Comment Room Service? Yes Fat restriction: Heart Healthy/HTN, CABG,Stroke, (2gNA, low fat, low cholesterol) 01/28/24 104 Physician Expected Discharge Date: 01/30/2024 Discharge Delays: PT Six Click Score: 24 OT Six Click Score: PT Recommendations: OT Recommendations: New Consults: Consult Orders (From admission, onward) Start Ordered 01/27/241921 Inpatient consult to Cardiology Once Specialty: Cardiology Provider: (Not yet assigned) Question Answer Comment Consulting Group CARDIOLOGY TEAM Reason for Consult? unstable angina Level of Consultation Consultation and Management 01/27/241921 Normal [facility] 30 The patient is Moder ately Stable - Low risk of patient condition declining or worsening The patient's goals for the shift include The clinical goals for the shift include VSS, safety Normal [facility] 30 The patient is Moder ately Stable - Low risk of patient condition declining or worsening The patient's goals for the shift include The clinical goals for the shift include VSS, safety [facility] BASIC METABOLIC PANELon 10-0 Anion gap [Moles/Vol] 11 mmol/L Normal 7-20 [facility] Comment on above: Performed By: #### L [id number] ####[facility] (BEAKER)[address] [place] [address] Calcium [Mass/Vol] 7.3 mg/dL Low 8.6-10.3 [facility] Comment on above: Performed By: #### L [id number] ####[facility] (BEAKER)[address] [place] [address] Chloride [Moles/Vol] 108 mmol/L High 98-107 [facility] Comment on above: Performed By: #### L [id number] ####[facility] (BEAKER)[address] [place] [address] CO2 [Moles/Vol] 25 mmol/L Normal 21-31 [facility] Comment on above: Performed By: #### L [id number] ####[facility] ([facility] [place] [address] Creatinine [Mass/Vol] 1.35 mg/dL High 0.70-1.30 [facility] Comment on above: Performed By: #### L [id number] ####[facility] ([facility] [place] [address] GLOMERULAR FILTRATION RATE ML/MIN/1.73 SQ M.PREDICTED 56.5 mL/min/1.73m*2 Low >60.0 [facility] Comment on above: Result Comment: The [facility]???s estimated glomerular filtration rate (eGFR) will [...] of individuals. Performed By: #### L [id number] ####[facility] [place] [address] Glucose [Mass/Vol] 87 mg/dL Normal 70-100 [facility] Comment on above: Performed By: #### L [id number] ####[facility] ([facility] [place] [address] Potassium [Moles/Vol] 4.1 mmol/L Normal 3.5-5.1 [facility] Comment on above: Performed By: #### L [id number] ####[facility] ([facility] [place] [address] Sodium [Moles/Vol] 140 mmol/L Normal 136-145 [facility] Comment on above: Performed By: #### L [id number] ####[facility] (BEAKER)[address] [place] [address] Urea nitrogen [Mass/Vol] 28 mg/dL High 7-25 [facility] Comment on above: Performed By: #### L [id number] ####[facility] (BEAKER)[address] [place] [address] UREA NITROGEN/CREATININE (MASS RATIO) IN SER/PLAS 20.7 Normal [facility] Comment on above: Performed By: #### L [id number] ####[facility] [place] [address] CBCon 01-28-2024 Erythrocyte distribution width (RBC) [Ratio] 14.8 % Normal 11.5-15.0 [facility] Comment on above: Performed By: #### L [id number] ####[facility] [place] [address] ERYTHROCYTE MEAN CORPUSCULAR HEMOGLOBIN CONCENTRATION (G/DL) BY AUTOMATED 31.6 g/dL Low 32.0-35.0 [facility] Comment on above: Performed By: #### L [id number] ####[facility] [place] [address] Hematocrit (Bld) [Volume fraction] 47.4 % Normal 39.0-55.0 [facility] Comment on above: Performed By: #### L [id number] ####[facility] [place] [address] Hemoglobin (Bld) [Mass/Vol] 15.0 g/dL Normal 13.0-17.0 [facility] Comment on above: Performed By: #### L [id number] ####[facility] [place] [address] MCH (RBC) [Entitic mass] 27.2 pg Normal 27.0-33.0 [facility] Comment on above: Performed By: #### L [id number] ####[facility] [place] [address] MCV (RBC) [Entitic vol] 85.9 fL Normal 82.0-98.0 [facility] Comment on above: Performed By: #### L [id number] ####[facility] ([facility])[address] [place] [address] PLATELETS (10*3/UL) IN BLOOD AUTOMATED COUNT 218 10*3/uL Normal 150-400 [facility] Comment on above: Performed By: #### L [id number] ####[facility] ([facility])[address] [place] [address] RBC (Bld) [#/Vol] 5.52 10*6/uL Normal 4.20-5.[address] [facility] Comment on above: Performed By: #### L [id number] ####[facility] ([facility])[address] [place] [address] WBC (Bld) [#/Vol] 9.98 10*3/uL Normal 4.00-10.[address] [facility] Comment on above: Performed By: #### L [id number] ####[facility] ([facility])[address] [place] [address] CONSULTon 01-28-2024 CONSULT ------- Attestation signed by Rashid Hendricks MD at 01/28/2024 4:46 PM (Updated) I personally saw and examined the patient on the same date of service as resident/fellow Dr Reece. I discussed the findings and therapeutic plan with the resident/fellow Dr Reece. I agree with the documentation, except for any edits/updates below. Teaching Physician's Revisions: None Patient was transferred from [facility] because of chest pain and atrial fibrillation [...] anti-ischemic drugs particularly Ranexa Rashid Hendricks MD, [facility] Cardiology Consult Note Reason for Consult: Atrial Flutter HPI: Yoli Tolbert Jeseniamisaeljordi PageAmarjit is a 68 y.o. male with PMHx of A-fib s/p watchman and 3 ablation, hypertension, hypothyroidism, CKD Stage 3, POTS, CAD s/p PCI, Sick Sinus Syndrome s/p PPM, and aneurysm of ascending aorta presents as a direct admission from [facility] with a chief complaint of chest pain. [...] cigars. H (more content not included)... Normal [facility] MAGNESIUMon 01-28-2024 Magnesium [Mass/Vol] 1.9 mg/dL Normal 1.9-2.7 [facility] Comment on above: Performed By: #### L [id number] #### [facility] ([facility]) [address] [place] [address] TROPONIN Ion 01-28-2024 Troponin I.cardiac [Mass/Vol] 0.00 ng/mL Normal 0.00-0.04 [facility] Comment on above: Performed By: #### L [id number] #### [facility] ([facility]) [address] [place] [address] Troponin I.cardiac [Mass/Vol] 0.00 ng/mL Normal 0.00-0.04 [facility] Comment on above: Performed By: #### L [id number] #### [facility] ([facility]) [address] [place] [address] Troponin I.cardiac [Mass/Vol] 0.00 ng/mL Normal 0.00-0.04 [facility] Comment on above: Performed By: #### L [id number] ####[facility] ([facility])[address] [place] [address] TSH3 REFLEX TO FT4on 024 THYROTROPIN (MIU/L) IN SER/PLAS BY DETECTION LIMIT <= 0.05 MIU/L 1.63 mIU/L Normal 0.34-5.60 [facility] Comment on above: Performed By: #### L [id number] ####[facility] ([facility])[address] [place] [address] B-TYPE NATRIURETIC PEPTIDEon 01-27-2024 Natriuretic peptide B (Bld) [Mass/Vol] 243 pg/mL High 0-100 [facility] Comment on above: Performed By: #### L [id number] ####[facility] ([facility])[address] [place] [address] CBC WITH AUTO DIFFERENTIALon 01-27-2024 Basophils (Bld) [#/Vol] 0.05 10*3/uL Normal 0.00-0.20 [facility] Comment on above: Performed By: #### L [id number] ####[facility] (BEAKER)[address] [place] [address] Basophils/100 WBC (Bld) 0.5 % Normal 0.0-1.0 [facility] Comment on above: Performed By: #### L [id number] ####[facility] (BEAKER)[address] [place] [address] Eosinophils (Bld) [#/Vol] 0.18 10*3/uL Normal 0.00-0.50 [facility] Comment on above: Performed By: #### L [id number] ####[facility] (BEAKER)[address] [place] [address] Eosinophils/100 WBC (Bld) 1.8 % Normal 0.0-6.0 [facility] Comment on above: Performed By: #### L [id number] ####[facility] (BEAKER)[address] [place] [address] Erythrocyte distribution width (RBC) [Ratio] 14.6 % Normal 11.5-15.0 [facility] Comment on above: Performed By: #### L [id number] ####[facility] (BEAKER)[address] [place] [address] ERYTHROCYTE MEAN CORPUSCULAR HEMOGLOBIN CONCENTRATION (G/DL) BY AUTOMATED 33.1 g/dL Normal 32.0-35.0 [facility] Comment on above: Performed By: #### L [id number] ####[facility] (BEAKER)[address] [place] [address] Hematocrit (Bld) [Volume fraction] 45.0 % Normal 39.0-55.0 [facility] Comment on above: Performed By: #### L [id number] ####[facility] (BEAKER)[address] [place] [address] Hemoglobin (Bld) [Mass/Vol] 14.9 g/dL Normal 13.0-17.0 [facility] Comment on above: Performed By: #### L [id number] ####[facility] (BEAKER)[address] [facility] [address] Immature granulocytes (Bld) [#/Vol] 0.08 10*3/uL Normal 0.00-0.20 [facility] Comment on above: Performed By: #### L [id number] ####[facility] (BEAKER)[address] [place] [address] Immature granulocytes/100 WBC (Bld) 0.8 % Normal 0.0-1.0 [facility] Comment on above: Performed By: #### L [id number] ####[facility] [place] [address] Lymphocytes (Bld) [#/Vol] 1.92 10*3/uL Normal 1.20-4.00 [facility] Comment on above: Performed By: #### L [id number] ####[facility] [place] [address] Lymphocytes/100 WBC (Bld) 18.7 % Low 20.0-45.0 [facility] Comment on above: Performed By: #### L [id number] ####[facility] [facility] [address] MCH (RBC) [Entitic mass] 28.2 pg Normal 27.0-33.0 [facility] Comment on above: Performed By: #### L [id number] ####[facility] (BEAKER)[address] [place] [address] MCV (RBC) [Entitic vol] 85.1 fL Normal 82.0-98.0 [facility] Comment on above: Performed By: #### L [id number] ####[facility] (BEAKER)[address] [facility] [address] Monocytes (Bld) [#/Vol] 0.95 10*3/uL Normal 0.10-1.00 [facility] Comment on above: Performed By: #### L [id number] ####[facility] (BEAKER)[address] [place] [address] Monocytes/100 WBC (Bld) 9.3 % Normal 5.0-12.0 [facility] Comment on above: Performed By: #### L [id number] ####[facility] [place] [address] Neutrophils (Bld) [#/Vol] 7.09 10*3/uL Normal 1.60-7.60 [facility] Comment on above: Performed By: #### L [id number] ####[facility] [place] [address] Neutrophils/100 WBC (Bld) 68.9 % Normal 40.0-72.0 [facility] Comment on above: Performed By: #### L [id number] ####[facility] [place] [address] NRBC (PER 100 WBCS) BY AUTOMATED COUNT 0.0 % Normal 0 [facility] Comment on above: Performed By: #### L [id number] ####[facility] ([facility])[address] [place] [address] PLATELETS (10*3/UL) IN BLOOD AUTOMATED COUNT 233 10*3/uL Normal 150-400 [facility] Comment on above: Performed By: #### L [id number] ####[facility] [facility] [place] [address] RBC (Bld) [#/Vol] 5.29 10*6/uL Normal 4.20-5.[address] [facility] Comment on above: Performed By: #### L [id number] ####[facility] (BEAK[facility])[address] [place] [address] WBC (Bld) [#/Vol] 10.27 10*3/uL Normal 4.00-10.60 [facility] Comment on above: Performed By: #### L [id number] ####[facility] ([facility])[address] [place] [address] COMPREHENSIVE METABOLIC PANE Julian 01-27-2024 Albumin [Mass/Vol] 4.0 g/dL Normal 3.5-5.7 [facility] Comment on above: Performed By: #### L AB15 #### [facility] ([facility]) [address] [place] [address] ALP [Catalytic activity/Vol] 57 U/L Normal 34-104 [facility] Comment on above: Performed By: #### L AB15 #### [facility] ([facility]) [address] [place] [address] ALT [Catalytic activity/Vol] 25 U/L Normal 7-52 [facility] Comment on above: Performed By: #### L AB15 #### [facility] ([facility]) [address] [place] [address] Anion gap [Moles/Vol] 12 mmol/L Normal 7-20 [facility] Comment on above: Performed By: #### L AB15 #### [facility] ([facility]) [address] [place] [address] AST [Catalytic activity/Vol] 16 U/L Normal 13-39 [facility] Comment on above: Performed By: #### L AB15 #### [facility] ([facility]) [address] [place] [address] Bilirubin [Mass/Vol] 0.6 mg/dL Normal 0.3-1.0 [facility] Comment on above: Performed By: #### L AB15 #### [facility] ([facility]) [address] [place] [address] Calcium [Mass/Vol] 7.3 mg/dL Low 8.6-10.3 [facility] Comment on above: Performed By: #### L [id number] #### [facility] ([facility]) [address] [place] [address] Chloride [Moles/Vol] 106 mmol/L Normal 98-107 [facility] Comment on above: Performed By: #### L AB15 #### [facility] ([facility]) [address] [place] [address] CO2 [Moles/Vol] 24 mmol/L Normal 21-31 [facility] Comment on above: Performed By: #### L AB15 #### [facility] ([facility]) [address] [place] [address] Creatinine [Mass/Vol] 1.28 mg/dL Normal 0.70-1.30 [facility] Comment on above: Performed By: #### L AB15 #### [facility] ([facility]) [address] [place] [address] GLOMERULAR FILTRATION RATE ML/MIN/1.73 SQ M.PREDICTED 60.2 mL/min/1.73m*2 Normal >60.0 [facility] Comment on above: Result Comment: The [facility]???s estimated glomerular filtration rate (eGFR) will [...] individuals. Performed By: #### L AB15 #### [facility] ([facility]) [address] [address] Glucose [Mass/Vol] 81 mg/dL Normal 70-100 [facility] Comment on above: Performed By: #### L AB15 #### [facility] ([facility]) [address] [place] [address] Potassium [Moles/Vol] 3.8 mmol/L Normal 3.5-5.1 [facility] Comment on above: Performed By: #### L AB15 #### [facility] ([facility]) [address] [place] [address] Protein [Mass/Vol] 6.7 g/dL Normal 6.0-8.3 [facility] Comment on above: Performed By: #### L AB15 #### [facility] ([facility]) [address] [place] [address] Sodium [Moles/Vol] 138 mmol/L Normal 136-145 [facility] Comment on above: Performed By: #### L AB15 #### [facility] ([facility]) [address] [place] [address] Urea nitrogen [Mass/Vol] 29 mg/dL High 7-25 [facility] Comment on above: Performed By: #### L AB15 #### [facility] ([facility]) [address] [place] [address] UREA NITROGEN/CREATININE (MASS RATIO) IN SER/PLAS 22.7 Normal [facility] Comment on above: Performed By: #### L AB15 #### [facility] ([facility]) [address] [place] [address] MAGNESIUMon 01-27-2024 Magnesium [Mass/Vol] 1.9 mg/dL Normal 1.9-2.7 [facility] Comment on above: Performed By: #### L AB103 ####[facility] ([facility])[address] [facility] [address] PHOSPHORUSon 01-27-2024 Magnesium [Mass/Vol] 5.6 mg/dL High 2.5-5.0 [facility] Comment on above: Performed By: #### L AB15 #### [facility] ([facility]) [address] [place] [address] PROTIME-INRon 01-27-2024 INR IN PPP BY COAGULATION ASSAY 1.12 High 0.90-1.10 [facility] Comment on above: Result Comment: ACCC [...] 1995;108:231S-246S. Performed By: #### L [id number] #### [facility] ([facility]) [address] [place] [address] PROTHROMBIN TIME (PT) IN PPP BY COAGULATION ASSAY 14.4 Seconds Normal 12.3-14.8 [facility] Comment on above: Performed By: #### L [id number] #### [facility] ([facility]) [address] [place] [address] TROPONIN Ion 01-27-2024 Troponin I.cardiac [Mass/Vol] 0.00 ng/mL Normal 0.00-0.04 [facility] Comment on above: Performed By: #### L [id number] ####[facility] ([facility])[address] [place] [address] Office Visiton 12-25-2023 Follow-up visit [id number] Fr freda Antunez Jr. 1955 M Date Provider Department Center 12/25/2023 [facility] Family History Problem Relation Age of Onset Hypertension Mother Cancer Mother Stroke Mother Hypertension Father Aortic aneurysm Father Cancer Father Aortic aneurysm Paternal Grandfather Sudden Neg Hx Family Status - Relation Status Age at Mother Father Paternal Grandfather Neg Hx Level of Service:96560 AL OFFICE/OUTPATIENT ESTABLISHED MOD MDM 30 MIN Normal [facility] Blood Urea Nitrogenon 2023 Urea nitrogen [Mass/Vol] 27 mg/dL High 7-25 [facility] Comment on above: Order Comment: STAT FOR ct Performed By: #### C REAT, BUN #### [facility] [address] [id number] [facility] CT abdomen pelvis w conon CT abdomen pelvis w con [facility] [address] [place] [address] [place] [address] CT Scan Report Signed Patient: Yoli Antunez Jr MR#: [id number] : 1955 Acct:[id number] Age/Sex: 68 / M ADM Date: 06/10/23 Loc: CT Room: Type: [facility] Attending Dr: Charlene Soria MD Copies [...] Aide Banks M.D.06/10/2023 4:04 PM Dictation Location: [facility]10 Transcribed By: [facility] 06/10/23 1604 Dictated By: Aide Banks MD 06/10/23 1550 Signed By: 06/10/23 1604 Normal [facility] Creatinineon 06-10-2023 Creatinine [Mass/Vol] 1.28 mg/dL Normal 0.70-1.30 [facility] Comment on above: Order Comment: STAT FOR ct Performed By: #### C REAT, BUN #### [facility] [address] [place] [address] [place] GFR/1.73 sq M.predicted MDRD (S/P/Bld) [Vol rate/Area] mL/min/{1.73_m2} Normal [facility] Comment on above: Order Comment: STAT FOR ct Result Comment: PERF ORMED BY: [place] [address] PATHOLOGIST DESIGN DRAFTSMAN ABDOUL ORR M.D. Performed By: #### C RESUDHIR, BUN #### [facility] [address] [id number] [place] Creatinine [Mass/volume] in Serum or PlasmaOrdered By: Charlene Soria on 06-10-2023 Creatinine [Mass/Vol] 1.28 mg/dL 0.70-1.30 [facility] No Panel InformationOrdered By: Charlene Soria on 06-10-2023 Estimated GFR (CKD-EPI) > 60.0 mL/Min [facility] Creatinine Clearance (Chem N/A [facility] Urea nitrogen [Mass/volume] in Serum or PlasmaOrdered By: Imad Estella on 06-10-2023 Urea nitrogen [Mass/Vol] 27 mg/dL 11-13 [facility] ALL KAPPA/LAMBDA FREE SERUMo n 06-01-2023 [facility] KAPPA LC FREE SER-MCNC 30.6 mg/L High 3.3 - 19.4 mg/L [facility] Comment on above: Rarely, increased se rum free light chains levels may not be detected or accurately quantified due to prozone phenomenon or in high viscosity samples using this immunoturbidimetric assay. Correlation with other laboratory results and clinical findings is recommended. The [place] Free Light Chain was performed using the Binding Site Optilite immunoturbidimetric method. Result obtained with different assay methods or kits cannot be used interchangeably. [facility] KAPPA LC/LAMBDA SER 1.72 High 0.26 - 1.65 [facility] LAMBDA LC FREE SERPL-MCNC 17.8 mg/L 5.7 - 26.3 mg/L [facility] Comment on above: Rarely, increased se [...] Interpretation and review of laboratory results Abnormal [facility] Specimen Type: BLOOD SPECIMEN Ordering Facility: [facility] Address: [address] [place] [address] Original Ordering Provider: MARÍA CORTES [facility] Julian 04-16-2023 L ------- Specimen: [id number] Received: 04/16/23 Status: NIKHIL Bautista Num: [id number] Spec Type: Surgical Subm Dr: Charlene Soria MD Tissues: A Colon Biopsy (RANDOM COLON BX) B Colon Biopsy (ASC POLYP) Procedures: HE/4, Gross/Micro L4/2 Age/ Patient Sex Location Account Attending Physician Yoli Antunez Jr 67/[facility] [id number] Charlene Soria MD SPEC NUM: [id number] RECD: 04/16/23 STATUS: NIKHIL BAUTISTA NUM: [id number] RENAN: 04/16/23- SUBM DR: Charlene Soria MD ENTERED: 04/16/[address] [facility] [address]: SPEC TYPE: Surgical DEPT: S [...] submitted in one cassette labeled B1. Specimen: [id number] Received: 04/16/23 Status: NIKHIL Michele Num: [id number] Spec Type: Surgical Subm Dr: Charlene Soria MD Tissues: A Colon Biopsy (RANDOM COLON BX) B Colon Biopsy (ASC POLYP) Procedures: HE/4, Gross/Micro L4/2 Patient: Yoli Antunez Jr [id number] (Continued) Specimen: [id number] Received: 04/16/23 (Continued) Signed (signature on file) Dony Duenas MD 04/17/23 2229 Specimen: [id number] Received: 04/16/23 Status: NIKHIL Bautista Num: [id number] Spec Type: Surgical Subm Dr: Charlene Soria MD Tissues: A Colon Biopsy (RANDOM COLON BX) B Colon Biopsy (ASC POLYP) Procedures: HE/Ragini, Gross/Micro L4/2 Patient: Yoli Antunez Jr [id number] (Continued) Specimen: [id number] Received: 04/16/23 (Continued) Microscopic Description A. Two H E slides reviewed. The microscopic examination confirms the diagnosis. B. Two H E slides reviewed. The microscopic examination confirms the diagnosis. CPT Codes 51394g8 Specimen: [id number] Received: 04/16/23 Status: NIKHIL Bautista Num: [id number] Spec Type: Surgical Subm Dr: Charlene Soria MD Tissues: A Colon Biopsy (RANDOM COLON BX) B Colon Biopsy (ASC POLYP) Procedures: Herbie BUITRAGO/Hilda L4/2 Patient: Yoli Antunez Jr [id number] (Continued) Signed (signature on file) Dony Duenas MD 04/17/237 [facility] CT ABDOMEN PELVIS W IV CONTR Adalgisa 02-01-2023 CT ABDOMEN PELVIS W IV CONTRAST Interpreted By: Miguel Conrad, STUDY: CT ABDOMEN PELVIS W IV CONTRAST; 02/01/2023 2:11 pm INDICATION: Signs/Symptoms:worsening LLQ abdominal pain and watery diarrhea. COMPARISON: None. ACCESSION NUMBER(S): [id number] ORDERING CLINICIAN: YOSSI CHEN TECHNIQUE: CT of [...] Miguel Conrad 02/01/2023 2:52 PM Dictation workstation: [id number] [facility] CT Abdomen and Pelvis W cont rast Candace 02-01-2023 1. No acute intra-ab dominal or pelvic pathology. 2. Uncomplicated colonic diverticulosis. 3. Trace hiatal hernia. 4. Scattered splenic calcific granulomas likely sequelae of chronic granulomatous infection. MACRO: None Signed by: Miguel Conrad 02/01/2023 2:52 PM Dictation workstation: [id number] MMODAL Interpreted By: Miguel Palmer, STUDY: CT ABDOMEN PELVIS W IV CONTRAST; 02/01/2023 2:11 pm INDICATION: Signs/Symptoms:worsening LLQ abdominal pain and watery diarrhea. COMPARISON: None. ACCESSION NUMBER(S): [id number] ORDERING CLINICIAN: YOSSI CHEN TECHNIQUE: CT of [...] Bilateral small fat containing inguinal hernias. MMODAL Miguel Conrad MD - 02/01/2023 Interpreted By: Miguel Conrad, STUDY: CT ABDOMEN PELVIS W IV CONTRAST; 02/01/2023 2:11 pm INDICATION: Signs/Symptoms:worsening LLQ abdominal pain and watery diarrhea. COMPARISON: None. ACCESSION NUMBER(S): [id number] ORDERING CLINICIAN: YOSSI CHEN TECHNIQUE: CT of [...] Miguel Conrad 02/01/2023 2:52 PM Dictation workstation: [id number] [facility] Work Phone: Radiology Study observation (narrative) [facility] Work Phone: CT Abdomen and Pelvis W cont rast IVOrdered By: Miguel Conrad on 02-01-2023 [facility] Work Phone: Gastrointestinal pathogens i [...] Rotavirus RNA Not Detected Normal Not Detected [facility] Comment on above: Performed By: #### 7 9390-1 #### RENÉ Hinojosa ([id number]) [facility] ([facility]) [address] [place] [address] Basic metabolic 2000 panelon 01-31-2023 Anion gap [Moles/Vol] 12 mmol/L Normal 10-20 [facility] Comment on above: Performed By: #### 2 4321-2 #### MAYELIN Hill ([id number]) [facility] ([facility]) [address] [place] [address] Calcium [Mass/Vol] 7.2 mg/dL Low 8.6-10.3 [facility] Comment on above: Performed By: #### 2 4321-2 #### MAYELIN Hill ([id number]) [facility] ([facility]) [address] [place] [address] Chloride [Moles/Vol] 106 mmol/L Normal 98-107 [facility] Comment on above: Performed By: #### 2 4321-2 #### MAYELIN Hill (99662) [facility] ([facility]) [address] [place] [address] CO2 [Moles/Vol] 28 mmol/L Normal 21-32 [facility] Comment on above: Performed By: #### 2 4321-2 #### MAYELIN Hill (06658) [facility] ([facility]) [address] [place] [address] Creatinine [Mass/Vol] 1.65 mg/dL High 0.50-1.30 [facility] Comment on above: Performed By: #### 2 4321-2 #### MAYELIN Hill ([id number]) [facility] ([facility]) [address] [place] [address] GFR/1.73 sq M.predicted MDRD (S/P/Bld) [Vol rate/Area] 45 mL/min/1.73m*2 Low >60 [facility] Comment on above: Result Comment: Calc ulations of estimated GFR are performed using the 2020 CKD-EPI Study Refit equation without the race variable for the IDMS-Traceable creatinine methods. https://jasn.asnjournals.org/content//22/ASN.0526212 988 Performed By: #### 2 4321-2 #### MAYELIN Hill ([id number]) [facility] ([facility]) [address] [place] [address] Glucose [Mass/Vol] 83 mg/dL Normal 74-99 [facility] Comment on above: Performed By: #### 2 4321-2 #### MAYELIN Hill ([id number]) [facility] ([facility]) [address] [place] [address] Potassium [Moles/Vol] 4.3 mmol/L Normal 3.5-5.3 [facility] Comment on above: Performed By: #### 2 4321-2 #### MAYELIN Hill ([id number]) [facility] ([facility]) [address] [place] [address] Sodium [Moles/Vol] 142 mmol/L Normal 136-145 [facility] Comment on above: Performed By: #### 2 4321-2 #### MAYELIN Hill (80826) [facility] ([facility]) [address] [place] [address] Urea nitrogen [Mass/Vol] 25 mg/dL High 6-23 [facility] Comment on above: Performed By: #### 2 4321-2 #### MAYELIN Hill ([id number]) [facility] (EM) [address] [place] [address] Follow Up (General Surgery)o n 12-13-2022 Follow Up (General Surgery) Diagnoses/Problems H/O hiatal hernia (V12.79) (Z87.19) Patient Discussion/Summary followup as needed Provider Impressions Patient continues to do well. He was reassured; followup as needed Chief Complaint Patient is here for follow up History of Present Axatdeo52-xjsc-fam patient who underwent laparoscopic hiatal hernia repair [...] BY MOUTH TWICE DAILY WITH MEALS Pyridostigmine [place] 60 MG Oral TabletTAKE 1 TABLET BY [...] Oral Tablet Vitamin D (Ergocalciferol) 1.25 MG (52035 UT) Oral CapsuleTAKE 1 CAPSULE BY MOUTH ONCE A WEEK Physical Exam abd: soft, non-distended, minimal tenderness over LUQ incision Signatures Electronically signed by : Yossi Chen MD; Dec 13 2022 10:59AM EST (Author) Normal [facility] Post Op (General Surgery)on 11-29-2022 Post Op [...] Muscle strain; ALBERT = N; Sent To: [facility] 8586 Patient Discussion/Summary Ice pack to left abdominal [...] here for post op History of Present Hlzvvfd27-cizy-bmr patient who underwent laparoscopic repair of paraesophageal [...] AM Vancomycin HCl CAPS Recorded By: Peggy Rivsa; 09/25/2022 12:33:09 PM Vancomycin HCl in Dextrose [...] BY MOUTH TWICE DAILY WITH MEALS Pyridostigmine [place] 60 MG Oral TabletTAKE 1 TABLET BY [...] Oral Tablet Vitamin D (Ergocalciferol) 1.25 MG (79938 UT) Oral CapsuleTAKE 1 CAPSULE BY MOUTH ONCE A WEEK Vitals Vital Signs Recorded: 29Nov2022 01:43PM Height6 ft 6 in Grvldp716 lb BMI Kfuzzfmvvi07.24 kg/m2 BSA Calculated2.49 Physical Exam abd: soft, non-distended, tenderness over LUQ trocar site; no hernia Signatures Electronically signed by : Yossi Chen MD (more content not included)... Normal [facility] Discharge [id number] 023 Discharge Profile2 Discharge Orders: Anticipated Discharge Date: Anticipated Discharge [id number] Hospital Providers: Provider RoleProvider Name Macy Olguinaham Code Status: Code Status at Discharge: Full [...] up Call to Schedule in2 weeks Phone [phone] Commentscall to make appointment Other Clinician Instructions: Other Instructions: Other Clinician InstructionsAvoid bread, salad, steak and carbonated beverages for 2 wks Electronic Signatures: Sivan Costa ([facility]) (Signed 22-Nov-2022 12:04) Authored: Discharge Orders, Provider FINAL REVIEW of Orders, Appointments, Gold Form - Integrity Specialist Summary Yossi Chen) (Signed 22-Nov-2022 12:26) Authored: Discharge Orders, Provider FINAL REVIEW of Orders, Appointments, Other Clinician Instructions Last Updated: 22-Nov-2022 12:26 by Yossi Chen) [facility] Order Reconciliationon 11-22 Order Reconciliation Page 1 Discharge Reconciliation Document Reconciliation Type: Discharge requested on behalf of Yossi Chen (Physician) done by Yossi Chen) Discharge - Partial Reconciliation: 22-Nov-2022 12:05 by: Sivan Costa ([facility]) Discharge - Reconciliation: 22-Nov-2022 12:31 by: [...] not required (more content not included)... Normal [facility] APTTon 11-21-2022 aPTT Coag (Bld) [Time] 34 s Normal 27 - 38 [facility] Comment on above: Result Comment: Note new reference range as of 10/09/2022 at 10:00am. Performed By: #### A PTT ####[facility] [place], [place] [id number] Activated Partial Thrombopla stin Timeon 11-21-2022 aPTT Coag (PPP) [Time] 34 s 27 - 38 -[facility] ia 201 DO Work Phone: Comment [...] applied here Patient Transferred from Other Facility ([facility], [facility],etc)no Patient Identity Verified Bypatient ID [...] AlertFor Ebola-like Symptoms: Isolate Patient and Notify Provider/Tapper Helper For Contact: Notify Provider/Tapper Helper Advance Directive: Advance Directive/DNRyes Advance Directive typeLiving Will Living Will AvailabilityLiving Will not available now Living Will [id number] [place] Fall Screen: History of falling (immediate [...] Communicatenone Learning Preferencesaudio Cultural Considerationsnone Developmental Considerationsnone Shinto Considerationsnone Learning Assessment (Other Learner): Other learner availableno Depression Screen: During the past month, have you often been bothered by feeling down, depressed or hopelessno During the past month, have you often had little interest or pleasure in doing thingsno Have you had any thoughts of harming anyone elseno Stafford Suicide: Risk Screen Not Applicable/Able to Answerable [...] Was this within the past 3 monthsno Stafford Suicide Riskmoderate Adult Nutrition Screen: Have you [...] Spiritual Screen: Are there any cultural, spiritual, baptist practices/values/needs that are important for us to knowno CAGE: Is this an injured patient at a Trauma Center ([facility]/[place]): no Vaccinations: Vaccination - Influenza Vaccination Screen: (more content not included)... Normal [facility] CBC AND DIFFERENTIALon 11-21 % AUTOMATED IMMATURE GRAN 0.3 % Normal 0.0 - 0.9 [facility] Comment on above: Result Comment: Nataliia ture Granulocyte Count (IG) includes promyelocytes, myelocytes and metamyelocytes but does not include bands. Percent differential counts (%) should be interpreted in the context of the absolute cell counts (cells/L). Performed By: #### C BCDF #### [address] [id number] Basophils (Bld) [#/Vol] 0.04 10*3/uL Normal 0.00 - 0.10 [facility] Comment on above: Performed By: #### C BCDF #### [address] [id number] Basophils/100 WBC (Bld) 0.6 % Normal 0.0 - 2.0 [facility] Comment on above: Performed By: #### C BCDF #### [address] [id number] Eosinophils (Bld) [#/Vol] 0.27 10*3/uL Normal 0.00 - 0.70 [facility] Comment on above: Performed By: #### C BCDF #### [address] [id number] Eosinophils/100 WBC (Bld) 3.9 % Normal 0.0 - 6.0 [facility] Comment on above: Performed By: #### C BCDF #### [address] [id number] Erythrocyte distribution width (RBC) [Ratio] 13.5 % Normal 11.5 - 14.5 [facility] Comment on above: Performed By: #### C BCDF #### [address] [id number] Hematocrit (Bld) [Volume fraction] 40.1 % Low 41.0 - 52.0 [facility] Comment on above: Performed By: #### C BCDF #### [address] [id number] Hemoglobin (Bld) [Mass/Vol] 13.3 g/dL Low 13.5 - 17.5 [facility] Comment on above: Performed By: #### C BCDF #### [address] [id number] Lymphocytes (Bld) [#/Vol] 1.54 10*3/uL Normal 1.20 - 4.80 [facility] Comment on above: Performed By: #### C BCDF #### [address] [id number] Lymphocytes/100 WBC (Bld) 22.3 % Normal 13.0 - 44.0 [facility] Comment on above: Performed By: #### C BCDF #### [address] [id number] MCHC (RBC) [Mass/Vol] 33.2 g/dL Normal 32.0 - 36.0 [facility] Comment on above: Performed By: #### C BCDF #### [address] [id number] MCV (RBC) [Entitic vol] 83 fL Normal 80 - 100 [facility] Comment on above: Performed By: #### C BCDF #### [address] [id number] Monocytes (Bld) [#/Vol] 0.71 10*3/uL Normal 0.10 - 1.00 [facility] Comment on above: Performed By: #### C BCDF #### [address] [id number] Monocytes/100 WBC (Bld) 10.3 % Normal 2.0 - 10.0 [facility] Comment on above: Performed By: #### C BCDF #### [address] [id number] Neutrophils (Bld) [#/Vol] 4.33 10*3/uL Normal 1.20 - 7.70 [facility] Comment on above: Performed By: #### C BCDF #### [address] [id number] Neutrophils/100 WBC (Bld) 62.6 % Normal 40.0 - 80.0 [facility] Comment on above: Performed By: #### C BCDF #### [address] [id number] Platelets (Bld) [#/Vol] 210 10*3/uL Normal 150 - 450 [facility] Comment on above: Performed By: #### C BCDF #### [address] [id number] RBC 4.84 x10E12/L Normal 4.50 - 5.90 [facility] [facility] Comment on above: Performed By: #### C BCDF #### [address] [id number] WBC (Bld) [#/Vol] 6.9 10*3/uL Normal 4.4 - 11.3 [facility] Comment on above: Performed By: #### C BCDF #### [address] [id number] COMPREHENSIVE PANELon 2022 Albumin [Mass/Vol] 4.4 g/dL Normal 3.4 - 5.0 [facility] Comment on above: Performed By: #### C MP #### [address] [id number] ALP [Catalytic activity/Vol] 60 U/L Normal 33 - 136 [facility] Comment on above: Performed By: #### C MP #### [address] [id number] ALT [Catalytic activity/Vol] 14 U/L Normal 10 - 52 [facility] Comment on above: Result Comment: Kasandra ents treated with Sulfasalazine may generate falsely decreased results for ALT. Performed By: #### C MP #### [address] [id number] Anion gap [Moles/Vol] 14 mmol/L Normal 10 - 20 [facility] Comment on above: Performed By: #### C MP #### [address] [id number] AST [Catalytic activity/Vol] 13 U/L Normal 9 - 39 [facility] Comment on above: Performed By: #### C MP #### [address] [id number] Bilirubin [Mass/Vol] 0.3 mg/dL Normal 0.0 - 1.2 [facility] Comment on above: Performed By: #### C MP #### [address] [id number] Calcium [Mass/Vol] 7.1 mg/dL Low 8.6 - 10.3 [facility] Comment on above: Performed By: #### C MP #### [address] [id number] Chloride [Moles/Vol] 106 mmol/L Normal 98 - 107 [facility] Comment on above: Performed By: #### C MP #### [address] [id number] Creatinine [Mass/Vol] 1.38 mg/dL High 0.50 - 1.30 [facility] Comment on above: Performed By: #### C MP #### [address] [id number] GFR/1.73 sq M.predicted among non-blacks MDRD (S/P/Bld) [Vol rate/Area] 55 mL/min/{1.73_m2} Abnormal >90 [facility] Comment on above: Result Comment: CALC ULATIONS OF ESTIMATED GFR ARE PERFORMED USING THE 2020 CKD-EPI STUDY REFIT EQUATION WITHOUT THE RACE VARIABLE FOR THE IDMS-TRACEABLE CREATININE METHODS. https://jasn.asnjournals.org/content/early//ASN.4402385 988 Performed By: #### C MP #### [address] [id number] Glucose [Mass/Vol] 105 mg/dL High 74 - 99 [facility] Comment on above: Performed By: #### C MP #### [address] [id number] HCO3 (Bld) [Moles/Vol] 24 mmol/L Normal 21 - 32 [facility] Comment on above: Performed By: #### C MP #### [address] [id number] Potassium [Moles/Vol] 3.8 mmol/L Normal 3.5 - 5.3 [facility] Comment on above: Performed By: #### C MP #### [address] [id number] Protein [Mass/Vol] 7.2 g/dL Normal 6.4 - 8.2 [facility] Comment on above: Performed By: #### C MP #### [facility] [address] [place], [place] [id number] Sodium [Moles/Vol] 140 mmol/L Normal 136 - 145 [facility] Comment on above: Performed By: #### C MP #### [facility] [address] [place], [place] [id number] Urea nitrogen [Mass/Vol] 23 mg/dL Normal 6 - 23 [facility] Comment on above: Performed By: #### C MP #### [facility] [address] [place], [place] [id number] Clinical Event Note-Surgical first assistanton 11-21-2022 Clinical Event Note-graphic design assistant Clinical Event: Clinical Event Note: TopicSurgical heel sprayer first Details dental chairside assistant to dr Yossi Chen. Procedure: Laparoscopic repair of Type 3 paraesophageal hernia with Toupet wrap. Provider/Team Contact Info-Pager Fab Law PA-C [phone] Electronic Signatures: Kee Law (PAC) (Signed 21-Nov-2022 14:31) Authored: Clinical Event Note Last Updated: 21-Nov-2022 14:31 by Kee Law (PAC) Normal [facility] Complete Blood Count + Diffe rentialon 11-21-2022 Basophils/100 WBC (Bld) 0.6 % 0.0 - 2.0 [facility] 201 DO Work Phone: Erythrocyte distribution width (RBC) [Ratio] 13.5 % See Below [facility] 201 DO Work Phone: Comment on above: Reference Range: 11. 5 - 14.5 Hematocrit (Bld) [Volume fraction] 40.1 % below low threshold See Below [facility] 201 DO Work Phone: Comment on above: Reference Range: 41. 0 - 52.0 Hemoglobin (Bld) [Mass/Vol] 13.3 g/dL below low threshold See Below [facility] 201 DO Work Phone: Comment on above: Reference Range: 13. 5 - 17.5 Lymphocytes/100 WBC (Bld) 22.3 % See Below [facility] 201 DO Work Phone: Comment on above: Reference Range: 13. 0 - 44.0 MCHC (RBC) [Mass/Vol] 33.2 g/dL See Below [facility] 201 DO Work Phone: Comment on above: Reference Range: 32. 0 - 36.0 MCV (RBC) [Entitic vol] 83 fL 80 - 100 [facility] 201 DO Work Phone: Monocytes/100 WBC (Bld) 10.3 % 2.0 - 10.0 [facility] 201 DO Work Phone: Neutrophils/100 WBC (Bld) 62.6 % See Below -[facility] 201 DO Work Phone: Comment on above: Reference Range: 40. 0 - 80.0 Platelets (Bld) [#/Vol] 210 10*3/uL 150 - 450 [facility] 201 DO Work Phone: RBC (Bld) [#/Vol] 4.84 {x10E12/L} See Below [facility] 201 DO Work Phone: Comment on above: Reference Range: 4.5 0 - 5.90 WBC (Bld) [#/Vol] 6.9 10*3/uL 4.4 - 11.3 [facility] 201 DO Work Phone: Complete Blood Count + Differential 0.04 {x10E9/L} See Below [facility] 201 DO Work Phone: Comment on above: Reference Range: 0.0 0 - 0.10 Complete Blood Count + Differential 0.27 {x10E9/L} See Below [facility] 201 DO Work Phone: Comment on above: Reference Range: 0.0 0 - 0.70 Complete Blood Count + Differential 0.71 {x10E9/L} See Below [facility] 201 DO Work Phone: Comment on above: Reference Range: 0.1 0 - 1.00 Complete Blood Count + Differential 1.54 {x10E9/L} See Below [facility] 201 DO Work Phone: Comment on above: Reference Range: 1.2 0 - 4.80 Complete Blood Count + Differential 4.33 {x10E9/L} See Below [facility] 201 DO Work Phone: Comment on above: Reference Range: 1.2 0 - 7.70 Complete Blood Count + Differential 3.9 % 0.0 - 6.0 [facility] 201 DO Work Phone: Complete Blood Count + Differential 0.3 % 0.0 - 0.9 [facility] 201 DO Work Phone: Comment on above: Immature Granulocyte Count (IG) includes promyelocytes, myelocytes and metamyelocytes but does not include bands. Percent differential counts (%) should be interpreted in the context of the absolute cell counts (cells/L). Laboratory - Chemistry and C hemistry - challengeon 11-21-2022 Albumin BCP dye [Mass/Vol] 4.4 g/dL 3.4 - 5.0 [facility] 201 DO Work Phone: ALP [Catalytic activity/Vol] 60 U/L 33 - 136 [facility] 201 DO Work Phone: ALT With P-5'-P [Catalytic activity/Vol] 14 U/L 10 - 52 [facility] 201 DO Work Phone: Comment on above: Patients treated wit h Sulfasalazine may generate falsely decreased results for ALT. Anion gap [Moles/Vol] 14 mmol/L 10 - 20 [facility] 201 DO Work Phone: AST With P-5'-P [Catalytic activity/Vol] 13 U/L 9 - 39 [facility] 201 DO Work Phone: Bilirubin [Mass/Vol] 0.3 mg/dL 0.0 - 1.2 [facility] 201 DO Work Phone: Calcium [Mass/Vol] 7.1 mg/dL below low threshold 8.6 - 10.3 [facility] 201 DO Work Phone: Chloride [Moles/Vol] 106 mmol/L 98 - 107 [facility] 201 DO Work Phone: CO2 [Moles/Vol] 24 mmol/L 21 - 32 [facility] 201 DO Work Phone: Creatinine [Mass/Vol] 1.38 mg/dL above high threshold See Below [facility] 201 DO Work Phone: Comment on above: Reference Range: 0.5 0 - 1.30 Glucose [Mass/Vol] 105 mg/dL above high threshold 74 - 99 [facility] 201 DO Work Phone: Potassium [Moles/Vol] 3.8 mmol/L 3.5 - 5.3 [facility] 201 DO Work Phone: Protein [Mass/Vol] 7.2 g/dL 6.4 - 8.2 [facility] 201 DO Work Phone: Sodium [Moles/Vol] 140 mmol/L 136 - 145 [facility] 201 DO Work Phone: Urea nitrogen [Mass/Vol] 23 mg/dL 6 - 23 [facility] 201 DO Work Phone: [phone] Laboratory - Coagulationon 0 8- INR Coag (PPP) [Relative time] 1.0 {INR} 0.9 - 1.1 -[facility] 201 DO Work Phone: PT Coag (PPP) [Time] 11.7 s 9.8 - 12.8 [facility] 201 DO Work Phone: Comment on above: Note new reference r josephine as of 10/09/2022 at 10:00am. No Panel Informationon 11-21 -[facility] 201 DO Work Phone: 55 {mL/min/1.73m2} Abnormal >90 [facility] 201 DO Work Phone: Comment on above: CALCULATIONS OF FLORENTIN MATED GFR ARE PERFORMED USING THE 2020 CKD-EPI STUDY REFIT EQUATION WITHOUT THE RACE VARIABLE FOR THE IDMS-TRACEABLE CREATININE METHODS.https://jasn.asnjournals.org/content/early/ASN .4014543951 PT/INRon 11-21-2022 PT Coag (PPP) [Time] 11.7 s Normal 9.8 - 12.8 [facility] Comment on above: Result Comment: Note new reference range as of 10/09/2022 at 10:00am. Performed By: #### P TINR ####[address] [id number] PT, INR 1.0 Normal 0.9 - 1.1 [facility] Comment on above: Performed By: #### P TINR ####[address] [id number] Patient Profile - Adult v2on 11-21-2022 Patient [...] applicable(1) Weight in kg113.7 kilogram(s) Weight in lcr770.6 pound(s) Weight Methodstated Scale Typebed Height in [...] Preop v3 19-Nov-2022 11:56 Normal [facility] Surgical Pathology Depar tmenton 11-21-2022 [facility] Surgical Pathology Department Name YOLI ANTUNEZ JR. Pathologist: KAITLYN LAW MD Date of Procedure: 11/21/2022 Date Received: 11/21/2022 Date Reported 12/03/2022 Submitting Physician: YOSSI CHEN MD Location: [facility] Copy To/Referring/Attending: RADHA BURRIS MD Other External # FINAL DIAGNOSIS A. HIATAL HERNIA SAC: -- BENIGN ADIPOSE TISSUE AND CONTAINED BENIGN LYMPH NODES. Electronically Signed Out By KAITLYN LAW MD/HOMER By the signature on this report, the individual or group listed as making the Final Interpretation/Diagnosis certifies that they have reviewed this case. Diagnostic interpretation performed at [facility] [address] [place] [address] Clinical History: Physician Contact Number: [phone] Fixative (A): Formalin Clinical Diagnosis History HIATAL HERNIA. Specimens Submitted As: A: HERNIA SAC Gross Description: Received in formalin, labeled with the patient's name and hospital number and hernia sac , are multiple segments of yellow fibroadipose soft tissue aggreagting to 8.0 x 5.0 x 2.5 cm. Areas of induration, nodularity, hemorrhage or necrosis are not seen. Needle Punch Machine Operator Helper sections are submitted in one cassette. LMP lmp/11/27/2022 [facility] Department of Pathology [address] [place] [address] Normal [facility] Comment on above: Performed By: #### U [facility] #### [facility] Surgical Pathology Department [address] [place] [address] Patient Profile - Preop v3on 11-19-2022 Patient Profile - Preop v3 Patient Profile - Preop: Initial Info: Patient DemographicsName: YOLI ANTUNEZ Date: 1955 Address: [address] [place] [id number] Date/Time [id number] 12:28 Primary Phone [phone] Instructions Givenappropriate clothing, bring glasses/contacts case, 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 responsible 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 (procedure may be cancelled if no school boat driver), center location, insurance information, remove jewerly/piercings, time to arrive Prep Instructions Reviewedn/a Instructions/Prep CommentNPO after midnight - bring event recorder info/ID card day of procedure How to be AddressedFred Spoken Language PreferredEnglish Source of Informationpatient Stated Reason for Admissionhiatal hernia repair Primary Contact Name and Numberjames Zee Sarah [phone] Limitations on Visitors/Phone Callsnone Medications Brought to Hospitalno General Health: Weight in kg113.5 kilogram(s) Weight in vdb292.2 pound(s) Weight Methodactual (measured) Scale Typestanding Height [...] recorder- right side of chest- checked at [place] kidney stone watchman device cataract detached retina [...] dhruv; hypertension Cardiovascular Management Strategiesmedication therapy; medical surgical tech Cardiovascular Symptoms/Conditions Commentcardiac ablation for atrial fib/ watchman device/ Event recorder (asked to bring ID in day of procedure - Checked at [place] office) Endocrine Symptoms/Conditionsthyroid disease Endocrine Management Strategiesmedication [...] Withspouse Living Arrangementshouse Resource/Environmental Concernsnone Anticipated Transition [place] Services Anticipated at Transitionnone Tobacco Use: Tobacco Useyes Tobacco Typecigarettes Number of Packs per Day2 Number of yrs15 Pack yrs30 Tobacco Commentquit smoking 1986 Pre-op Checklist: Arrival [id number] Arrival Time05:23 Procedure TypeLaparoscopic Hiatal Hernia repair with Toupet wrap possible feeding tube and upper endoscopy NPOyes Last Food [id number]-7599 22:00 Last Clear Fluid Qbzvoz11-Syk-2564 22:00 ID Band On Patientpatient ID (name), [...] Allergies, Ho (more content not included)... Normal [facility] Initial Visit (General Surge ry)on 11-12-2022 [...] gas bloat, inability to burp, blood clot, NV and stroke. All questions answered and he is willing to proceed. He will be on a full liquid diet for 3 days after surgery and then advance to a soft diet. Avoid bread Cam[place] steak and carbonated beverage for 2 weeks. Chief Complaint Patient referred by Dr. Daily for a hiatal hernia consult. History of Present F[age]derin37 y/o male patient referred for symptomatic hiatal [...] waking up feeling unrefreshed, excessive daytime fatigue. [place] Sleepiness Scale Score is 16 /24. Fatigue [...] CPAP ( (more content not included)... Normal [facility] Order Reconciliationon 10-15 Order Reconciliation Page 1 [...] 1.25 milligram(s) orally once a day Normal [facility] Patient Profile - Preop v3on 10-12-2022 Patient Profile - Preop v3 Patient Profile - Preop: Initial Info: Patient DemographicsName: YOLI ANTUNEZ Date: 1955 Address: [address] [place] [address], [address] [place] [address] Primary Phone [phone] Instructions Giventime to arrive, Arrival time of 0930 for surgery time of 1100 How to be Addressedfrederick Spoken Language PreferredEnglish Stated Reason for Admissionsleep study Primary Contact Name and Numbersee facesheet Medications Brought to Hospitalno General Health: Weight in kg116.6 kilogram(s) Weight in zol870 pound(s) Height in feet6 feet Height in inches5.95 inch(es) Height in cm197.9 centimeter(s) BMI (kg/m2)29.771 square meter Patient or Family Member Reaction to Anesthesiapatient reaction Patient Reaction to Anesthesiaawakening delayed Blood Avoidance/Restrictionsnone Previous Transfusion Reactionnot applicable Health Mgmt: Symptoms/Conditions Managed at Homecardiovascular; endocrine Barriers to Managing Healthnone Relationship/Environ: Lives Withspouse Living Arrangementshouse Resource/Environmental Concernsnone [facility] Anticipated at Transitionnone Tobacco Use: Tobacco Useno Pre-op Checklist: Arrival [id number]-1562 Arrival Time09:59 Procedure Typesleep study NPOyes Last Food Daukhq65-Kfp-5644 00:00 Last Clear Fluid Bpeawq50-Bti-6690 00:00 ID Band On Patientpatient ID (name), [...] Drug Category, Unknown, Active Electronic Signatures: Letty Godfrey) (Signed 15-Oct-2022 10:00) Authored: Initial Info, General Health, Health Mgmt, Relationship/Environ, Tobacco Use, Pre-op Checklist, Additional Information Lupe Villarreal (RN) (Signed 12-Oct-2022 13:08) Authored: Initial Info, Additional Information Last Updated: 15-Oct-2022 10:00 by Letty Godfrey (RN) Normal [facility] Electrocardiogram 12 Leadon 10-10-2022 Electrocardiogram 12 Lead Ventricular Rate 70 Atrial Rate 70 P-R Interval 194 QRS Duration 78 Q-T Interval 420 QTC Calculation(Bazett) 453 P Dequincy 38 R Dequincy 13 T Dequincy 66 QRS Count 12 Q Onset 222 P Onset 125 P Offset 161 T Offset 432 QTC Fredericia 442 Diagnosis Class Normal Diagnosis Normal sinus rhythm Normal ECG No previous ECGs available Confirmed by Aliya Candelaria ([id number]) on 10/14/2022 8:34:16 PM Normal [facility] No Panel Informationon 10-10 [email or web address]?R etrieveTestByDateTime?Patie yjHC=[email or web address]&Date= 023&Time=14%3a24%3a36%3a00& TestType=ECG&Site=10&Output Type=PDF&Ext=PDF [facility] Work Phone: [phone] Normal sinus rhythm [facility] Work Phone: [phone] Normal [facility] Work Phone: [phone] 1 [facility] Work Phone: [phone] 1 [facility] Work Phone: [phone] 1 [facility] Work Phone: [phone] 1 [facility] Work Phone: [phone] 1 [facility] Work Phone: [phone] 1 [facility] Work Phone: [phone] 1 [facility] Work Phone: [phone] [facility] Work Phone: [phone] [facility] Work Phone: [phone] 1 [facility] Work Phone: [phone] 1 [facility] Work Phone: [phone] [facility] Work Phone: [phone] [facility] Work Phone: [phone] [facility] Work Phone: Established Visit (Otolaryng [...] symptoms appear more central. Sees neurology at [facility] who suspects he may have autonomic dysfunction - F/u with [facility] neurology as scheduled 2) ADA, CPAP intolerance [...] telehealth visit. Dysphagia follow-up History of Present Bylvogy67 year old man with history of intermittnet [...] more in his throat. Seeing neurology at [facility] for his intermittent aphasia. Still awaiting manometry [...] following interpretation. (more content not included)... Normal [facility] Established Visit (Otolaryng ology)on 09-24-2022 Established [...] assist you through your ENT care at [facility]. Dr. Perrin is an ENT surgeon who specializes in voice, airway and swallowing issues. This means that she specializes in taking care of patients with complex voice, airway and swallowing problems. Dr. Perrin's office number is [phone]. Please use this number to contact her and her care team regardless of which office you use to access care. This number is the most direct way to communicate with all the members of the care team. Dr. Perrin?s admin secretary answers the office phone from 9am-4pm Mon-Fri. Call [phone] and push 2. She can help you with scheduling of appointments, general questions and information. You may need to leave a message if she is helping another patient. In this case, someone from the team will call you back the same day if you leave your message before 3pm, or the next business morning. Dr. Perrin?s nurse and can be reached by calling [phone]. We make every effort to return phone calls the same day. If you are in need of urgent assistance after hours, please call [phone] and ask for ENT utility bill collection clerk. Dr. Perrin works closely with speech therapists as they work together to help solve your issues with speech and swallowing. You may see a speech therapist during your appointment if Dr. Perrin feels this is needed. If you need to reach speech therapy to talk with a therapist or to schedule an appointment, please call [phone]. Others who may be included in your care are dieticians, social workers, audiologists, neurologists, and physical therapists. Dr. Perrin will provide these referrals as needed. Please let her know if you would like to request a specific referral. For your convenience, Dr. Perrin sees patients at different [facility] locations including the [facility], and [facility] at the [facility]. While we try to make your appointments [...] discuss his care with Dr. Long at [facility] to understand current treatment plans 2. He [...] Michaud. He (more content not included)... Normal [facility] Established Visit (Otolaryngology) No report was sent Normal [facility] No Panel Informationon 09-13 [email or web address]?={[email or web address] [email or web address]} [facility] 7774 Work Phone: -[facility] 3318 Work Phone: [facility] 4100 Work Phone: [facility] Surgical Pathology Depar tmenton 09-13-2022 [facility] Surgical Pathology Department Name YOLI ATNUNEZ JR. Pathologist: LIZZ LINN MD Date of [...] reviewed this case. Diagnostic interpretation performed at [place] [address] [place] [address] Clinical History: R/O Esophagitis and metaplasia Specimens Submitted As: A: GE JUNCTION COLD FORCEPS Gross Description: Received in formalin, labeled with the patient's name and hospital number and A , are 2 fragments of martin, soft tissue aggregating to 0.5 x 0.2 x 0.2 cm. The specimen is submitted in toto in one cassette. [facility] sbs/09/21/2022 [facility] Department of Pathology [address] [place] [address] Normal [facility] Comment on above: Performed By: #### U [facility] #### [facility] Surgical Pathology Department [address] [place] [address] Upper GI endoscopyon 023 Upper GI endoscopy PATIENTNAME Patient Name: Yoli Antunez EXAMDATE Procedure Date: 09/13/2022 3:41 PM PATIENTID PATIENTACCOUNTNUM PATIENTDOB Date of : 1955 ADMITTYPE Admit Type: Outpatient PATIENTROOM Site: [place] Procedure Room 2 ETHNICITY Ethnicity: Not or RACE Race: White PROVDR Attending MD: Ruby Daily MD, [id number] ENDOPROCEDURENAME Procedure: Upper GI endoscopy INDICATION Indications: Dysphagia, cricopharyngeal web PRIMARYPROVIDER Providers: Ruby Daily MD (Doctor), Vale Mercado RN (Nurse), Sabina Atkins, Fur Buyer EDREFPROVIDER Referring: Ruby Daily MD CURRENT_MEDS Medicines: [...] medications. CPT_CODES Procedure Code(s): --- Professional --- 33646, Moderate sedation services provided by the same physician or other qualified health palliative care physician performing the diagnostic or therapeutic service that the sedation supports, requiring the presence of an independent trained observer to assist in the monitoring of the patient's level of consciousness and physiological status; initial 15 minutes of intraservice time, patient age 5 years or older [address], Unlisted procedure, esophagus ICD_CODES Diagnosis Code(s): --- Professional --- J38.3, O (more content not included)... Normal [facility] SURGICAL PATHOLOGY RESULTSon 09-06-2022 Pathology Report Name BROOKE ANTUNEZ Tera ISIDRO Pathologist: MAYELIN AVILEZ MD Date of Procedure: 08/30/2022 Date Received: 08/30/2022 Date Reported 09/06/2022 Submitting Physician: BETH DIEGO MD Location: [facility] Copy To/Referring/Attending: RUBY DAILY M.D. Other External [...] reviewed this case. Diagnostic interpretation performed at [address] [place] [address] Clinical History: A) R/O H.pylori B) R/O [...] in toto in one cassette. DMB dmb/09/04/2022 [facility] Department of Pathology [address] [place] [place] [address] Established Visit (Otolaryng ology)on 09-04-2022 Established Visit [...] telehealth visit. Dysphagia follow-up History of Present [age]cd46 year old man with history of dysphagia [...] of : 1955 Admit Type: Outpatient Site: [facility] Procedure Room 5 Ethnicity: Not or Race: White Attending MD: ELISEO Williamson, [id number] Procedure: Upper GI endoscopy Indications: Dysphagia for 5 years to both liquids and solids Patient Profile: This is a 67 year old male. Refer to note in patient chart for documentation of history and physical. Providers: ELISEO Williamson (Doctor), Jaylen Lo, CARLOS (Nurse), Florentino De Dios, Fur Buyer, Kristin Mcdaniels RN (Nurse) Referring: Radha Burris [...] specimen was done by the nurse and oral surgery technician using the patient's name and medical record number. Estimated blood loss was minimal. A single 3 mm nodule was found at the gastroesophageal junction, 39 cm from the incisors. Biopsies were taken with a cold forceps for histology. Verification of patient identification for the specimen was done by the nurse and oral surgery technician using the patient's name and medical [...] specimen was done by the nurse and oral surgery technician using the patient's name and medical [...] naris un (more content not included)... [facility] Work Phone: Radiology Study observation (narrative) [facility] Work Phone: EGDOrdered By: Beth Diego on 08-30-2022 [facility] Work Phone: No Panel Informationon 08-30 Name BROOKE ANTUNEZ GHASSAN Haley JR. Pathologist: MAYELIN AVILEZ MD Date of Procedure: 08/30/2022 Date Rec -[facility] Work Phone: [email or web address]} [facility] Work Phone: [facility]o [facility] [...] 1.25 milligram(s) orally once a day Normal [facility], [place], operated by [facility] Surgical Pathology Depar tmenton 08-30-2022 [facility] Surgical Pathology Department Name YOLI ANTUNEZAmarjit ISIDRO Pathologist: MAYELIN AVILEZ MD Date [...] ABNORMALITIES. Electronically Signed Out By MAYELIN AVILEZ MD/[facility] By the signature on this report, the individual or group listed as making the Final Interpretation/Diagnosis certifies that they have reviewed this case. Diagnostic interpretation performed at [facility] [address] [place] [facility] [address] Clinical History: A) R/O H.pylori B) R/O [...] in toto in one cassette. DMB dmb/09/04/2022 [facility] Department of Pathology [address] [place] [address] Normal [facility] Comment on above: Performed By: #### U [facility] #### [facility] Surgical Pathology Department [address] [place] [address] Upper GI endoscopyon 023 Upper GI endoscopy PATIENTNAME Patient Name: Yoli Antunez EXAMDATE Procedure Date: 08/30/2022 7:32 AM PATIENTID PATIENTACCOUNTNUM PATIENTDOB Date of : 1955 ADMITTYPE Admit Type: Outpatient PATIENTROOM Site: [facility] Procedure Room 5 ETHNICITY Ethnicity: Not or RACE Race: White PROVDR Attending MD: ELISEO Williamson, [id number] ENDOPROCEDURENAME Procedure: Upper GI endoscopy INDICATION Indications: Dysphagia for 5 years to both liquids and solids PTPROFILE Patient Profile: This is a 67 year old male. Refer to note in patient chart for documentation of history and physical. PRIMARYPROVIDER Providers: ELISEO Williamson (Doctor), Jaylen Lo RN (Nurse)Flroentino, Fur Buyer, Kristin Mcdaniels RN (Nurse) EDREFPROVIDER Referring: Radha [...] specimen was done by the nurse and oral surgery technician using the patient's name and medical record number. Estimated blood loss was minimal. A single 3 mm nodule was found at the gastroesophageal junction, 39 cm from the incisors. Biopsies were taken with a cold forceps for histology. Verification of patient identification for the specimen was done by the nurse and oral surgery technician using the patient's name and medical [...] specimen was done by the nurse and oral surgery technician using the patient's name and medical [...] re (more content not included)... Normal [facility] Established Visit (Otolaryng ology)on 08-17-2022 Established [...] waking up feeling unrefreshed, excessive daytime fatigue. [place] Sleepiness Scale Score is 16 /24. Fatigue [...] CPAP; however, (more content not included)... Normal [place] Tobacco Screening.on 023 Adult depression screening assessment No MG-Otolaryn go [facility] [facility] Work Phone: Fall risk assessment a) No falls within the last year [facility]-Otolaryngo logy-[facility] Work Phone: Tobacco use status CPHS b) No MG-Otolaryngo logy-[facility] 302 Work Phone: MEDICAL ASSISTANT INSTRUCTOR (Progress Note)on 2022 MEDICAL ASSISTANT INSTRUCTOR (Progress Note) Therapy Diagnosis Assessed Dysphagia, oropharyngeal [...] consent was requested and obtained from YOLI HOGUELUIS ANTONIO on this date, 08/13/2022 03:15 PM , [...] to doctors? appointments. Primary Language for learning: Mauritanian. Insurance Insurance reviewed Visit number: 3 Onset Date: 2022 Medicare Certification Period: Beginnin2022 Endin2022 Subjective Living Environment: home Patient arrival: independent Patient alert and ready to participate in telehealth visit this date. Objective Progress to date: senior living goals: 1. Patient will safety tolerate the [...] verbalized understanding and agreement: yes CPT Code 29204 Treatment of swallowing dysfunction and/or oral function for feeding Signatures Electronically signed by : Yoanna Quigley CCC-MEDICAL ASSISTANT INSTRUCTOR; Aug 13 2022 3:44PM EST (Author) Normal [facility] GI ESOPHAGRAMon 08-10-2022 GI ESOPHAGRAM Patient Name: YOLI ANTUNEZ STUDY: GI ESOPHAGRAM; ; 08/10/2022 1:49 pm INDICATION: assess motility, r/o achalasia, assess mass/lesions R13.12: Dysphagia, oropharyngeal phase. COMPARISON: None. ACCESSION NUMBER(S): [id number] ORDERING CLINICIAN: RUBY DAILY TECHNIQUE: Fluoroscopic guided single and double contrast barium esophagram. FINDINGS: Recovery Unit Operator view of the chest, abdomen shows loop [...] Electronically signed by: JAE SOUTH MD Normal [facility] Radiologyon 08-10-2022 XR Esophagus Views W contrast PO Normal [facility]o [facility] Work Phone: Established Visit (Otolaryng ology)on 07-31-2022 [...] consent was requested and obtained from YOLI MYKELFABIENNEKOREY on this date, 07/31/2022 12:30 PM , for a telehealth visit. Swallow History of Present [age]ibadb54 year old man with history of dysphagia [...] 20 MG (more content not included)... Normal [facility] Tobacco Screening.on 023 Adult depression screening assessment No MG-Otolaryn go [facility] Phone: Fall risk assessment b) One or more fall s in the last year [facility]aryngo log[facility] Work Phone: Tobacco use status CPHS b) No [facility]o [facility] Work Phone: MEDICAL ASSISTANT INSTRUCTOR (Progress Note)on 2022 MEDICAL ASSISTANT INSTRUCTOR (Progress Note) No report was sent Normal [facility] MEDICAL ASSISTANT INSTRUCTOR (Progress Note) Therapy Diagnosis Assessed Dysphagia, oropharyngeal [...] to doctors? appointments. Primary Language for learning: Mauritanian. Insurance Insurance reviewed Visit number: 2 Onset Date: 2022 Medicare Certification Period: Beginnin2022 Endin2022 Subjective Living Environment: home Patient arrival: independent Patient alert and ready to participate in telehealth visit this date. Objective Progress to date: terminal manager goals: 1. 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 COMPARISON: None. ACCESSION NUMBER(S): [id number] ORDERING CLINICIAN: RANJANA PERRIN TECHNIQUE: MBSS completed. Informed verbal consent obtained prior to completion of exam. Trials of thin, nectar thick, honey thick, puree, soft-solids, and regular solids given. Fluoroscopy time : 3 minutes, 2 seconds. MEDICAL ASSISTANT INSTRUCTOR: Osmel Lozano M.S., [facility]-MEDICAL ASSISTANT INSTRUCTOR Phone/Pager: Can be contacted via [employer] or SPEECH FINDINGS: Reason for referral: A [...] a home program 2-3 times per day. senior living goals: Patient will be able to tolerate [...] regarding the esophageal phase of the swallow. MEDICAL ASSISTANT INSTRUCTOR impressions with severity rating: Patient presents with [...] nectar thi (more content not included)... Normal [facility] No Panel Informationon 07-18 Normal [facility]Otol[facility]o [facility] Work Phone: Swallow Evaluation v2-Modifi ed Barium Swallow, SLPon 07-18-2022 Swallow Evaluation v2-Modified Barium Swallow, MEDICAL ASSISTANT INSTRUCTOR Rehab: Info: Time IN11:05 Time OUT11:55 Total Treatment [id number] Evaluation TypeModified Barium Swallow, MEDICAL ASSISTANT INSTRUCTOR Impression: Assessment (Swallow Eval)MEDICAL ASSISTANT INSTRUCTOR impressions with severity rating: [Patient presents with [...] of the EMR/AEMR Electronic Signatures: Osmel Lozano (MEDICAL ASSISTANT INSTRUCTOR) (Signed 18-Jul-2022 14:17) Authored: Info, Impression Last Updated: 18-Jul-2022 14:17 by Osmel Lozano (MEDICAL ASSISTANT INSTRUCTOR) Normal [facility] Established Visit (Otolaryng ology)on 07-17-2022 Established [...] assist you through your ENT care at [facility]. Dr. Perrin is an ENT surgeon who specializes in voice, airway and swallowing issues. This means that she specializes in taking care of patients with complex voice, airway and swallowing problems. Dr. Perrin's office number is [phone]. Please use this number to contact her and her care team regardless of which office you use to access care. This number is the most direct way to communicate with all the members of the care team. Dr. Perrin?s admin secretary answers the office phone from 9am-4pm Mon-Sat. Call [phone] and push 2. She can help you with scheduling of appointments, general questions and information. You may need to leave a message if she is helping another patient. In this case, someone from the team will call you back the same day if you leave your message before 3pm, or the next business morning. Dr. Perrin?s nurse and can be reached by calling [phone]. We make every effort to return phone calls the same day. If you are in need of urgent assistance after hours, please call [phone] and ask for ENT utility bill collection clerk. Dr. Perrin works closely with speech therapists as they work together to help solve your issues with speech and swallowing. You may see a speech therapist during your appointment if Dr. Perrin feels this is needed. If you need to reach speech therapy to talk with a therapist or to schedule an appointment, please call [phone]. Others who may be included in your care are dieticians, social workers, audiologists, neurologists, and physical therapists. Dr. Perrin will provide these referrals as needed. Please let her know if you would like to request a specific referral. For your convenience, Dr. Perrin sees patients at different [facility] locations including the [facility], and [facility] at the [facility]. While we try to make your appointments [...] dilation. We will consider referral to Dr. Daiyl if timing works well. He is amenable to this. 2. You were referred to Dr. Michaud for management of ADA. Records of his prior PSG will be requrested from Dr. Napier 3. You will be started on Omeprazole (more content not included)... Normal [facility] Tobacco Screening.on 023 Adult depression screening assessment No -Otolaryn go [facility] 4108 Work Phone: Fall risk assessment b) One or more fall s in the last year -Otolaryngo [facility] 4109 Work Phone: Tobacco use status CPHS b) No -Otolaryngo [facility] 4106 Work Phone: BNPon 06-04-2022 Natriuretic peptide B (Bld) [Mass/Vol] 182.0 pg/mL Normal <=900.0 [facility] Comment on above: Performed By: #### H STROPN #### [facility] [address] [address] [address] Kulwant Brennan CARDIAC MAYELIN ADMITon 023 CK [Catalytic activity/Vol] 86 U/L Normal 39-308 [facility] Comment on above: Performed By: #### L ACT #### [facility] [address] [address] [address] Kulwant Brennan CK.MB [Mass/Vol] 0.84 ng/mL Normal <=3.60 [facility] Comment on above: Performed By: #### L ACT #### [facility] [address] [address] [address] Kulwant Brennan HSTROP 4.6 pg/mL Normal 4.0-76.1 [facility] Comment on above: Result Comment: CUT- OFF POINTS HAVE BEEN ESTABLISHED BASED ON THE FOURTH UNIVERSAL DEFINITIONS OF MYOCARDIAL INFARCTION. THE UPPER REFERENCE LIMIT (URL) OF TROPONIN, DEFINED THE 99TH PERCENTILE OF cTnI DISTRIBUTION IN A REFERENCE POPULATION, HAS BEEN CONFIRMED THE DECISION THRESHOLD FOR [place] DIAGNOSIS. Performed By: #### L ACT #### [facility] [address] [address] [address] Kulwant Brennan EFRAIN 52 ng/mL Normal 16-96 [facility] Comment on above: Performed By: #### L ACT #### [facility] [address] [address] [address] Kulwant Brennan CBC AUTO DIFFon 06-04-2022 BASO # 0.1 103/ul Normal 0.0-0.1 [facility] Comment on above: Performed By: #### L ACT #### [facility] [address] [place] [address] Dr. Kulwant Brennan Basophils/100 WBC (Bld) 0.5 % Normal 0.2-2.0 [facility] Comment on above: Performed By: #### L ACT #### [facility] [address] [place] [address] Dr. Kulwant Brennan EO # 0.2 103/ul Normal 0.0-0.7 [facility] Comment on above: Performed By: #### L ACT #### [facility] [address] [place] [address] Dr. Kulwant Brennan Eosinophils/100 WBC (Bld) 2.6 % Normal 0.9-7.0 [facility] Comment on above: Performed By: #### L ACT #### [facility] [address] [place] [address] Dr. Kulwant Brennan Erythrocyte distribution width (RBC) [Ratio] 15.0 % Normal 11.0-15.0 [facility] Comment on above: Performed By: #### L ACT #### [facility] [address] [place] [address] Dr. Kulwant Brennan Hematocrit (Bld) [Volume fraction] 42.3 % Normal 42.0-54.0 [facility] Comment on above: Performed By: #### L ACT #### [facility] [address] [place] [address] Dr. Kulwant Brennan Hemoglobin (Bld) [Mass/Vol] 14.0 g/dL Normal 14.0-18.0 [facility] Comment on above: Performed By: #### L ACT #### [facility] [address] [address] [address] Kulwant Brennan IG # 0.10 10e3/ul Critically high 0.00-0.03 [facility] Comment on above: Performed By: #### L ACT #### [facility] [address] [place] [address] Dr. Kulwant Brennan IG % 1.1 % Critically high 0.0-0.5 [facility] Comment on above: Performed By: #### L ACT #### [facility] [address] [place] [address] Dr. Kulwant Brennan LYMPH # 2.7 103/ul Normal 1.2-3.8 [facility] Comment on above: Performed By: #### L ACT #### [facility] [address] [place] [address] Dr. Kulwant Brennan Lymphocytes/100 WBC (Bld) 29.1 % Normal 20.5-60.0 [facility] Comment on above: Performed By: #### L ACT #### [facility] [address] [place] [address] Dr. Kulwant Brennan MANUAL DIFF REQ NO Normal [facility] Comment on above: Performed By: #### L ACT #### [facility] [address] [place] [address] Dr. Kulwant Brennan MCH (RBC) [Entitic mass] 27.0 pg Normal 25.9-34.0 [facility] Comment on above: Performed By: #### L ACT #### [facility] [address] [place] [address] Dr. Kulwant Brennan MCHC (RBC) [Mass/Vol] 33.1 g/dL Normal 29.9-35.2 [facility] Comment on above: Performed By: #### L ACT #### [facility] [address] [place] [address] Dr. Kulwant Brennan MCV (RBC) [Entitic vol] 81.5 fL Normal 80.0-94.0 [facility] Comment on above: Performed By: #### L ACT #### [facility] [address] [address] [address] Kulwant Brennan MONO # 1.0 103/ul Critically high 0.3-0.8 [facility] Comment on above: Performed By: #### L ACT #### [facility] [address] [address] [address] Kulwant Brennan Monocytes/100 WBC (Bld) 10.5 % Normal 1.7-12.0 [facility] Comment on above: Performed By: #### L ACT #### [facility] [address] [address] [address] Kulwant Brennan NEUT # 5.1 103/ul Normal 1.4-6.5 [facility] Comment on above: Performed By: #### L ACT #### [facility] [address] [place] [address] Dr. Kulwant Brennan Neutrophils/100 WBC (Bld) 56.2 % Normal 43.0-75.0 [facility] Comment on above: Performed By: #### L ACT #### [facility] [address] [place] [address] Dr. Kulwant Brennan Platelet mean volume (Bld) [Entitic vol] 10.0 fL Normal 9.5-13.5 [facility] Comment on above: Performed By: #### L ACT #### [facility] [address] [place] [address] Dr. Kulwant Brennan PLT 251 103/ul Normal 150-450 [facility] Comment on above: Performed By: #### L ACT #### [facility] [address] [place] [address] Dr. Kulwant Brennan RBC 5.19 106/ul Normal 4.70-6.10 [facility] Comment on above: Performed By: #### L ACT #### [facility] [address] [place] [address] Dr. Kulwant Brennan WBC 9.1 103/ul Normal 4.0-11.0 [facility] Comment on above: Performed By: #### L ACT #### [facility] [address] [place] [address] STROKE HEAD WOon [...] CONNER TANG Date: 2022-06-04 07:16 Normal [facility] Covid-19 PCR (CVDTB)on 05-23 SARS-CoV-2 (COVID-19) RNA MIKE+probe Ql (Unsp spec) Not detected Normal NOT DETECTED [facility] Comment on above: Result Comment: When [...] for this test is supported by the Casting And Curing Operator of Health and Human Service's declaration that [...] longer be used). Performed By: #### H KENYON #### [facility] [address] [place] [address] Dr. Kulwant Brennan D-DIMERon 06-04-2022 D-DIMER 0.38 mg/L FEU Normal <=0.59 [facility] Comment on above: Performed By: #### D DIM #### [facility] [address] [place] [address] Dr. Kulwant Brennan D-DIMER COMMENTS SEE BELOW Normal [facility] Comment on above: Result Comment: Incr [...] hospitalization. Performed By: #### D DIM #### [facility] [address] [place] [address] Dr. Kulwant Brennan PROF 14(COMP METB)on 023 Albumin [Mass/Vol] 4.1 g/dL Normal 3.4-5.0 [facility] Comment on above: Performed By: #### H STROPN #### [facility] [address] [place] [address] Dr. Kulwant Brennan Albumin/Globulin [Mass ratio] 1.1 {ratio} Normal [facility] Comment on above: Performed By: #### H STROPN #### [facility] [address] [place] [address] Dr. Kulwant Brennan ALP [Catalytic activity/Vol] 78 U/L Normal 46-116 [facility] Comment on above: Performed By: #### H STROPN #### [facility] [address] [place] [address] Dr. Kulwant Brennan ALT [Catalytic activity/Vol] 26 U/L Normal 16-63 [facility] Comment on above: Performed By: #### H STROPN #### [facility] [address] [place] [address] Dr. Kulwant Brennan Anion gap [Moles/Vol] 16.3 mmol/L Normal [facility] Comment on above: Performed By: #### H STROPN #### [facility] [address] [address] [address] Kulwant Brennan AST [Catalytic activity/Vol] 18 U/L Normal 15-37 [facility] Comment on above: Performed By: #### H STROPN #### [facility] [address] [place] [address] Dr. Kulwant Brennan Bilirubin [Mass/Vol] 0.4 mg/dL Normal 0.2-1.0 [facility] Comment on above: Performed By: #### H STROPN #### [facility] [address] [place] [address] Dr. Kulwant Brennan Calcium [Mass/Vol] 8.4 mg/dL Critically low 8.5-10.1 [facility] Comment on above: Performed By: #### H STROPN #### [facility] [address] [address] [address] Kulwant Brennan Chloride [Moles/Vol] 104 mmol/L Normal 98-107 [facility] Comment on above: Performed By: #### H STROPN #### [facility] [address] [place] [address] Dr. Kulwant Brennan CO2 [Moles/Vol] 24.8 mmol/L Normal 21.0-32.0 [facility] Comment on above: Performed By: #### H STROPN #### [facility] [address] [place] [address] Dr. Kulwant Brennan Creatinine [Mass/Vol] 1.52 mg/dL Critically high 0.70-1.30 [facility] Comment on above: Performed By: #### H STROPN #### [facility] [address] [place] [address] Dr. Kulwant Brennan EGFR-AF TRISTANIAN 55 mL/min/1.73m2 Critically low >=60 [facility] Comment on above: Performed By: #### H STROPN #### [facility] [address] [place] [address] Dr. Kulwant Brennan EGFR-NON AF TRISTANIAN 46 mL/min/1.73m2 Critically low >=60 [facility] Comment on above: Performed By: #### H STROPN #### [facility] [address] [address] [address] Kulwant Brennan Globulin (S) [Mass/Vol] 3.6 g/dL Normal [facility] Comment on above: Performed By: #### H STROPN #### [facility] [address] [address] [address] Kulwant Brennan Glucose [Mass/Vol] 102 mg/dL Normal 74-106 [facility] Comment on above: Performed By: #### H STROPN #### [facility] [address] [place] [address] Dr. Kulwant Brennan Potassium [Moles/Vol] 4.1 mmol/L Normal 3.5-5.1 [facility] Comment on above: Performed By: #### H STROPN #### [facility] [address] [address] [address] Kulwant Brennan Protein [Mass/Vol] 7.7 g/dL Normal 6.4-8.2 [facility] Comment on above: Performed By: #### H STROPN #### [facility] [address] [place] [address] Dr. Kulwant Brennan Sodium [Moles/Vol] 141 mmol/L Normal 136-145 [facility] Comment on above: Performed By: #### H STROPN #### [facility] [address] [address] [address] Kulwant Brennan Urea nitrogen [Mass/Vol] 30.0 mg/dL Critically high 7.0-18.0 [facility] Comment on above: Performed By: #### H STROPN #### [facility] [address] [place] [address] Dr. Kulwant Brennan Urea nitrogen/Creatinine [Mass ratio] 19.7 mg/mg Normal [facility] Comment on above: Performed By: #### H STROPN #### [facility] [address] [place] [address] Dr. Kulwant Brennan PROTIMEon 02-13-2023 INR Coag (PPP) [Relative time] 0.99 {INR} Normal [facility] Comment on above: Performed By: #### P TT, PT ####[facility] [address] [place] [address]DrAmarjit Brennan INR GUIDELINES SEE BELOW Normal [facility] Comment on above: Result Comment: HAYDEE RED INR: 2.0 - 3.0 CONDITIONS NOT LISTED BELOW 2.5 - 3.5 FOR PROSTHETIC HEART VALVE REPLACEMENT 2.5 - 3.5 RECURRENT THROMBOSIS Performed By: #### P TT, PT ####[facility] [address] [place], [place] [address]DrAmarjit Brennan PT Coag (PPP) [Time] 10.5 s Normal 9.0-11.6 [facility] Comment on above: Performed By: #### P TT, PT ####[facility] [address] [place], [place] [address]DrAmarjit Brennan PTTon 06-04-2022 aPTT Coag (Bld) [Time] 30.4 s Normal 22.3-36.2 [facility] Comment on above: Performed By: #### P TT, PT ####[facility] [address] [place], [place] [address]DrAmarjit Brennan TROPONIN, HIGH SENSITIVITYon 06-04-2022 HSTROP 4.5 pg/mL Normal 4.0-76.1 [facility] Comment on above: Result Comment: CUT- OFF POINTS HAVE BEEN ESTABLISHED BASED ON THE FOURTH UNIVERSAL DEFINITIONS OF MYOCARDIAL INFARCTION. THE UPPER REFERENCE LIMIT (URL) OF TROPONIN, DEFINED THE 99TH PERCENTILE OF cTnI DISTRIBUTION IN A REFERENCE POPULATION, HAS BEEN CONFIRMED THE DECISION THRESHOLD FOR [place] DIAGNOSIS. Performed By: #### H STROPN ####[facility] [address] [place], [place] [address]DrAmarjit Brennan HSTROP 4.3 pg/mL Normal 4.0-76.1 [facility] Comment on above: Result Comment: CUT- OFF POINTS HAVE BEEN ESTABLISHED BASED ON THE FOURTH UNIVERSAL DEFINITIONS OF MYOCARDIAL INFARCTION. THE UPPER REFERENCE LIMIT (URL) OF TROPONIN, DEFINED THE 99TH PERCENTILE OF cTnI DISTRIBUTION IN A REFERENCE POPULATION, HAS BEEN CONFIRMED THE DECISION THRESHOLD FOR [place] DIAGNOSIS. Performed By: #### H STROPN #### [facility] [address] [place], [place] [address] Dr. Kulwant Brennan TSHon 06-04-2022 TSH 2.572 uIU/mL Normal 0.358-3.74 0 [facility] Comment on above: Performed By: #### L ACT #### [facility] [address] [place], [place] [address] Dr. Kulwant Brennan XR CHEST 1 Von [...] by: FLORENTIN PALMA Date: 2022-06-04 04:40 Normal [facility] XR CHEST 2 Von 06-04-2022 XR [...] NICOLE CASAREZ Date: 2022-06-04 16:28 Normal [facility] XR Hand Complete Left*on XR Hand [...] by Chaz Moreau on 04/17/2022 1415 Normal [facility] Specialist ECHO LIMITED STUDYon 022 ECHO LIMITED STUDY Patient: YOLI ANTUNEZ Exam Date: 03/22/2022 : 1955 Gender:M Ordering : YANDEL SHEN [facility] Admission #: [id number] Family : Order #: [id number] CLICK HERE TO VIEW EXAM ECHOCARDIOGRAM REPORT [...] M.D. on 03/22/2022 at 20:31 Normal [facility] XR Abdomen Single View (KUB) *on [...] by Chaz Moreau on 03/21/2022 0944 Normal [facility] Freight Team Associate AMYLASEon 02-05-2022 Amylase [Catalytic activity/Vol] 58 U/L Normal 25-115 [facility] Comment on above: Performed By: #### L IPA, YAHIR, CMP #### [facility] [address] [place] [address] Dr. Kulwant Brennan CBC AUTO DIFFon 02-05-2022 BASO # 0.1 103/ul Normal 0.0-0.1 [facility] Comment on above: Performed By: #### L ACT #### [facility] [address] [place] [address] [address] Kulwant Brennan Basophils/100 WBC (Bld) 0.8 % Normal 0.2-2.0 [facility] Comment on above: Performed By: #### L ACT #### [facility] [address] [place] [address] Dr. Kulwant Brennan EO # 0.2 103/ul Normal 0.0-0.7 [facility] Comment on above: Performed By: #### L ACT #### [facility] [address] [place] [address] Dr. Kulwant Brennan Eosinophils/100 WBC (Bld) 2.3 % Normal 0.9-7.0 [facility] Comment on above: Performed By: #### L ACT #### [facility] [address] [place] [address] Dr. Kulwant Brennan Erythrocyte distribution width (RBC) [Ratio] 14.6 % Normal 11.0-15.0 [facility] Comment on above: Performed By: #### L ACT #### [facility] [address] [place] [address] Dr. Kulwant Brennan Hematocrit (Bld) [Volume fraction] 39.9 % Critically low 42.0-54.0 [facility] Comment on above: Performed By: #### L ACT #### [facility] [address] [place] [address] Dr. Kulwant Brennan Hemoglobin (Bld) [Mass/Vol] 12.7 g/dL Critically low 14.0-18.0 [facility] Comment on above: Performed By: #### L ACT #### [facility] [address] [place] [address] Dr. Kulwant Brennan IG # 0.03 10e3/ul Normal 0.00-0.03 [facility] Comment on above: Performed By: #### L ACT #### [facility] [address] [place] [address] Dr. Kulwant Brennan IG % 0.5 % Normal 0.0-0.5 [facility] Comment on above: Performed By: #### L ACT #### [facility] [address] [place] [address] Dr. Kulwant Brennan LYMPH # 1.9 103/ul Normal 1.2-3.8 [facility] Comment on above: Performed By: #### L ACT #### [facility] [address] [place] [address] Dr. Kulwant Brennan Lymphocytes/100 WBC (Bld) 28.3 % Normal 20.5-60.0 [facility] Comment on above: Performed By: #### L ACT #### [facility] [address] [place] [address] Dr. Kulwant Brennan MANUAL DIFF REQ NO Normal [facility] Comment on above: Performed By: #### L ACT #### [facility] [address] [place] [address] Dr. Kulwant Brennan MCH (RBC) [Entitic mass] 27.4 pg Normal 25.9-34.0 [facility] Comment on above: Performed By: #### L ACT #### [facility] [address] [place] [address] Dr. Kulwant Brennan MCHC (RBC) [Mass/Vol] 31.8 g/dL Normal 29.9-35.2 [facility] Comment on above: Performed By: #### L ACT #### [facility] [address] [place] [address] Dr. Kulwant Brennan MCV (RBC) [Entitic vol] 86.0 fL Normal 80.0-94.0 [facility] Comment on above: Performed By: #### L ACT #### [facility] [address] [place] [address] Dr. Kulwant Brennan MONO # 0.7 103/ul Normal 0.3-0.8 [facility] Comment on above: Performed By: #### L ACT #### [facility] [address] [place] [address] Dr. Kulwant Brennan Monocytes/100 WBC (Bld) 10.4 % Normal 1.7-12.0 [facility] Comment on above: Performed By: #### L ACT #### [facility] [address] [place] [address] Dr. Kulwant Brennan NEUT # 3.8 103/ul Normal 1.4-6.5 [facility] Comment on above: Performed By: #### L ACT #### [facility] [address] [place] [address] Dr. Kulwant Brennan Neutrophils/100 WBC (Bld) 57.7 % Normal 43.0-75.0 [facility] Comment on above: Performed By: #### L ACT #### [facility] [address] [place] [address] Dr. Kulwant Brennan Platelet mean volume (Bld) [Entitic vol] 9.9 fL Normal 9.5-13.5 [facility] Comment on above: Performed By: #### L ACT #### [facility] [address] [place] [address] Dr. Kulwant Brennan PLT 224 103/ul Normal 150-450 [facility] Comment on above: Performed By: #### L ACT #### [facility] [address] [place] [address] [address] Kulwant Brennan RBC 4.64 106/ul Critically low 4.70-6.10 [facility] Comment on above: Performed By: #### L ACT #### [facility] [address] [place] [address] Dr. Kulwant Brennan WBC 6.6 103/ul Normal 4.0-11.0 [facility] Comment on above: Performed By: #### L ACT #### [facility] [address] [place] [address] Dr. Kulwant Brennan LIPASEon 02-05-2022 Lipase [Catalytic activity/Vol] 174.0 U/L Normal 73.0-393.0 [facility] Comment on above: Performed By: #### L BERENICE YAHIR, CMP #### [facility] [address] [place] [address] Dr. Kulwant Brennan PROF 14(COMP METB)on 022 Albumin [Mass/Vol] 4.2 g/dL Normal 3.4-5.0 [facility] Comment on above: Performed By: #### L IPA YAHIR, CMP #### [facility] [address] [place] [address] Dr. Kulwant Brennan Albumin/Globulin [Mass ratio] 1.0 {ratio} Normal [facility] Comment on above: Performed By: #### L IPA YAHIR, CMP #### [facility] [address] [place] [address] Dr. Kulwant Brennan ALP [Catalytic activity/Vol] 106 U/L Normal 46-116 [facility] Comment on above: Performed By: #### L IPA YAHIR, CMP #### [facility] [address] [place] [address] Dr. Kulwant Brennan ALT [Catalytic activity/Vol] 91 U/L Critically high 16-63 [facility] Comment on above: Performed By: #### L YAHIR NG, CMP #### [facility] [address] [place] [address] Dr. Kulwant Brennan Anion gap [Moles/Vol] 13.8 mmol/L Normal [facility] Comment on above: Performed By: #### L YAHIR NG, CMP #### [facility] [address] [place] [address] Dr. Kulwant Brennan AST [Catalytic activity/Vol] 26 U/L Normal 15-37 [facility] Comment on above: Performed By: #### L YAHIR NG, CMP #### [facility] [address] [place] [address] Dr. Kulwant Brennan Bilirubin [Mass/Vol] 0.5 mg/dL Normal 0.2-1.0 [facility] Comment on above: Performed By: #### L YAHIR NG, CMP #### [facility] [address] [place] [address] Dr. Kulwant Brennan Calcium [Mass/Vol] 8.3 mg/dL Critically low 8.5-10.1 [facility] Comment on above: Performed By: #### L YAHRI NG, CMP #### [facility] [address] [place] [address] Dr. Kulwant Brennan Chloride [Moles/Vol] 103 mmol/L Normal 98-107 [facility] Comment on above: Performed By: #### L YAHIR NG, CMP #### [facility] [address] [place] [address] Dr. Kulwant Brennan CO2 [Moles/Vol] 26.5 mmol/L Normal 21.0-32.0 [facility] Comment on above: Performed By: #### L YAHIR NG, CMP #### [facility] [address] [place] [address] Dr. Kulwant Brennan Creatinine [Mass/Vol] 1.37 mg/dL Critically high 0.70-1.30 [facility] Comment on above: Performed By: #### L YAHIR NG, CMP #### [facility] [address] [place] [address] [address] Kulwant Brennan EGFR-AF TRISTANIAN >60 Normal >=60 [facility] Comment on above: Performed By: #### L YAHIR NG, CMP #### [facility] [address] [place] [address] [address] Kulwant Brennan EGFR-NON AF TRISTANIAN 52 mL/min/1.73m2 Critically low >=60 [facility] Comment on above: Performed By: #### L YAHIR NG, CMP #### [facility] [address] [place] [address] [address] Kulwant Brennan Globulin (S) [Mass/Vol] 4.1 g/dL Normal [facility] Comment on above: Performed By: #### L YAHIR NG, CMP #### [facility] [address] [place] [address] [address] Kulwant Brennan Glucose [Mass/Vol] 96 mg/dL Normal 74-106 [facility] Comment on above: Performed By: #### L YAHIR NG, CMP #### [facility] [address] [place] [address] [address] Kulwant Brennan Potassium [Moles/Vol] 4.3 mmol/L Normal 3.5-5.1 [facility] Comment on above: Performed By: #### L YAHIR NG, CMP #### [facility] [address] [place] [address] [address] Kulwant Brennan Protein [Mass/Vol] 8.3 g/dL Critically high 6.4-8.2 [facility] Comment on above: Performed By: #### L YAHIR NG, CMP #### [facility] [address] [place] [address] [address] Kulwant Brennan Sodium [Moles/Vol] 139 mmol/L Normal 136-145 [facility] Comment on above: Performed By: #### L YAHIR NG, CMP #### [facility] [address] [place] [address] [address] Kulwant Brennan Urea nitrogen [Mass/Vol] 27.0 mg/dL Critically high 7.0-18.0 [facility] Comment on above: Performed By: #### L BERENICE, YAHIR, CMP #### [facility] [address] [place] [address] [address] Kulwant Brennan Urea nitrogen/Creatinine [Mass ratio] 19.7 mg/mg Normal [facility] Comment on above: Performed By: #### L IPA, YAHIR, CMP #### [facility] [address] [place] [address] Dr. Kulwant Brennan CBC AUTO DIFFon 01-09-2022 BASO # 0.1 103/ul Normal 0.0-0.1 [facility] Comment on above: Performed By: #### H STROPN #### [facility] [address] [place] [address] Dr. Kulwant Brennan Basophils/100 WBC (Bld) 0.5 % Normal 0.2-2.0 [facility] Comment on above: Performed By: #### H STROPN #### [facility] [address] [place] [address] Dr. Kulwant Brennan EO # 0.2 103/ul Normal 0.0-0.7 [facility] Comment on above: Performed By: #### H STROPN #### [facility] [address] [place] [address] Dr. Kulwant Brennan Eosinophils/100 WBC (Bld) 2.3 % Normal 0.9-7.0 [facility] Comment on above: Performed By: #### H STROPN #### [facility] [address] [place] [address] Dr. Kulwant Brennan Erythrocyte distribution width (RBC) [Ratio] 14.6 % Normal 11.0-15.0 [facility] Comment on above: Performed By: #### H STROPN #### [facility] [address] [place] [address] Dr. Kulwant Brennan Hematocrit (Bld) [Volume fraction] 35.8 % Critically low 42.0-54.0 [facility] Comment on above: Performed By: #### H STROPN #### [facility] [address] [place] [address] Dr. Kulwant Brennan Hemoglobin (Bld) [Mass/Vol] 11.4 g/dL Critically low 14.0-18.0 [facility] Comment on above: Performed By: #### H STROPN #### [facility] [address] [place] [address] [address] Kulwant Brennan IG # 0.33 10e3/ul Critically high 0.00-0.03 [facility] Comment on above: Performed By: #### H STROPN #### [facility] [address] [place] [place] [address] [address] Kulwant Brennan IG % 3.2 % Critically high 0.0-0.5 [facility] Comment on above: Performed By: #### H STROPN #### [facility] [address] [place] [address] Dr. Kulwant Brennan LYMPH # 1.9 103/ul Normal 1.2-3.8 [facility] Comment on above: Performed By: #### H STROPN #### [facility] [address] [place] [address] Dr. Kulwant Brennan Lymphocytes/100 WBC (Bld) 18.3 % Critically low 20.5-60.0 [facility] Comment on above: Performed By: #### H STROPN #### [facility] [address] [place] [address] Dr. Kulwant Brennan MANUAL DIFF REQ NO Normal [facility] Comment on above: Performed By: #### H STROPN #### [facility] [address] [place] [address] [address] Kulwant Brennan MCH (RBC) [Entitic mass] 26.8 pg Normal 25.9-34.0 [facility] Comment on above: Performed By: #### H STROPN #### [facility] [address] [place] [address] [address] Kulwant Brennan MCHC (RBC) [Mass/Vol] 31.8 g/dL Normal 29.9-35.2 [facility] Comment on above: Performed By: #### H STROPN #### [facility] [address] [place] [address] Dr. Kulwant Brennan MCV (RBC) [Entitic vol] 84.0 fL Normal 80.0-94.0 [facility] Comment on above: Performed By: #### H STROPN #### [facility] [address] [place] [address] [address] Kulwant Brennan MONO # 0.9 103/ul Critically high 0.3-0.8 [facility] Comment on above: Performed By: #### H STROPN #### [facility] [address] [place] [address] Dr. Kulwant Brennan Monocytes/100 WBC (Bld) 9.2 % Normal 1.7-12.0 [facility] Comment on above: Performed By: #### H STROPN #### [facility] [address] [place] [address] Dr. Kulwant Brennan NEUT # 6.8 103/ul Critically high 1.4-6.5 [facility] Comment on above: Performed By: #### H STROPN #### [facility] [address] [place] [address] Dr. Kulwant Brennan Neutrophils/100 WBC (Bld) 66.5 % Normal 43.0-75.0 [facility] Comment on above: Performed By: #### H STROPN #### [facility] [address] [place] [address] Dr. Kulwant Brennan Platelet mean volume (Bld) [Entitic vol] 10.5 fL Normal 9.5-13.5 [facility] Comment on above: Performed By: #### H STROPN #### [facility] [address] [place] [address] Dr. Kulwant Brennan PLT 357 103/ul Normal 150-450 [facility] Comment on above: Performed By: #### H STROPN #### [facility] [address] [place] [address] Dr. Kulwant Brennan RBC 4.26 106/ul Critically low 4.70-6.10 [facility] Comment on above: Performed By: #### H STROPN #### [facility] [address] [place] [address] Dr. Kulwant Brennan WBC 10.2 103/ul Normal 4.0-11.0 [facility] Comment on above: Performed By: #### H STROPN #### [facility] [address] [place] [address] [address] Kulwant Brennan PROF 14(COMP METB)on 022 Albumin [Mass/Vol] 3.3 g/dL Critically low 3.4-5.0 [facility] Comment on above: Performed By: #### T RAJEEV, CMP ####[facility] [address] [place] [address]DrAmarjit Brennan Albumin/Globulin [Mass ratio] 0.8 {ratio} Normal [facility] Comment on above: Performed By: #### T RAJEEV, CMP ####[facility] [address] [place] [address]Dr. Kulwant Brennan ALP [Catalytic activity/Vol] 151 U/L Critically high 46-116 [facility] Comment on above: Performed By: #### T RAJEEV, CMP ####[facility] [address] [place] [address]Dr. Kulwant Brennan ALT [Catalytic activity/Vol] 118 U/L Critically high 16-63 [facility] Comment on above: Performed By: #### T RAJEEV, CMP ####[facility] [address] [place] [address]DrAmarjit Brennan Anion gap [Moles/Vol] 12.3 mmol/L Normal [facility] Comment on above: Performed By: #### T RAJEEV, CMP ####[facility] [address] [place] [address]DrAmarjit Brennan AST [Catalytic activity/Vol] 65 U/L Critically high 15-37 [facility] Comment on above: Performed By: #### T RAJEEV, CMP ####[facility] [address] [place] [address]DrAmarjit Brennan Bilirubin [Mass/Vol] 0.5 mg/dL Normal 0.2-1.0 [facility] Comment on above: Performed By: #### T RAJEEV, CMP ####[facility] [address] [place], [place] [address]Dr. Kulwant Brennan Calcium [Mass/Vol] 5.3 mg/dL Critically low 8.5-10.1 Th [facility] Comment on above: Performed By: #### T SH, CMP ####[facility] [address] [place] [address]Dr. Kulwant Brennan Chloride [Moles/Vol] 104 mmol/L Normal 98-107 [facility] Comment on above: Performed By: #### T SH, CMP ####[facility] [address] [place] [address]Dr. Kulwant Brennan CO2 [Moles/Vol] 26.7 mmol/L Normal 21.0-32.0 [facility] Comment on above: Performed By: #### T RAJEEV, CMP ####[facility] [address] [place], [place] [address]Dr. Kulwant Brennan Creatinine [Mass/Vol] 2.08 mg/dL Critically high 0.70-1.30 [facility] Comment on above: Performed By: #### T RAJEEV, CMP ####[facility] [address] [place], [place] [address]Dr. Kulwant Brennan EGFR-AF TRISTANIAN 39 mL/min/1.73m2 Critically low >=60 [facility] Comment on above: Performed By: #### T RAJEEV, CMP ####[facility] [address] [place], [place] [address]Dr. Kulwant Brennan EGFR-NON AF TRISTANIAN 32 mL/min/1.73m2 Critically low >=60 [facility] Comment on above: Performed By: #### T RAJEEV, CMP ####[facility] [address] [place] [address]Dr. Kulwant Brennan Globulin (S) [Mass/Vol] 4.1 g/dL Normal [facility] Comment on above: Performed By: #### T RAJEEV, CMP ####[facility] [address] [place] [address]Dr. Kulwant Brennan Glucose [Mass/Vol] 89 mg/dL Normal 74-106 [facility] Comment on above: Performed By: #### T RAJEEV, CMP ####[facility] [address] [place] [address]Dr. Kulwant Brennan Potassium [Moles/Vol] 4.0 mmol/L Normal 3.5-5.1 [facility] Comment on above: Performed By: #### T RAJEEV, CMP ####[facility] [address] [place] [address]Dr. Kulwant Brennan Protein [Mass/Vol] 7.4 g/dL Normal 6.4-8.2 [facility] Comment on above: Performed By: #### T RAJEEV, CMP ####[facility] [address] [place] [address]Dr. Kulwant Brennan Sodium [Moles/Vol] 139 mmol/L Normal 136-145 [facility] Comment on above: Performed By: #### T RAJEEV, CMP ####[facility] [address] [place] [address]Dr. Kulwant Brennan Urea nitrogen [Mass/Vol] 28.0 mg/dL Critically high 7.0-18.0 [facility] Comment on above: Performed By: #### T RAJEEV, CMP ####[facility] [address] [place] [address]Dr. Kulwant Brennan Urea nitrogen/Creatinine [Mass ratio] 13.5 mg/mg Normal [facility] Comment on above: Performed By: #### T RAJEEV, CMP ####[facility] [address] [place] [address]Dr. Kulwant Brennan TSHon 01-09-2022 TSH 20.234 uIU/mL Critically high 0.358-3.74 0 [facility] Comment on above: Performed By: #### T RAJEEV, CMP ####[facility] [address] [place] [address]Dr. Kulwant Brennan Cult, Bloodon 01-06-2022 Cult, Blood Specimen Description .BLOOD Special Requests RT AC 6ML Culture NO GROWTH 5 DAYS Report Status FINAL 01/06/2022 Normal [facility] Comment on above: Performed By: #### U RNA, URTPRT, UMICAO, UEOS, UA #### [address] [id number] Loan Officer: Ronn Arias MD Cult,Bloodon 01-06-2022 Cult,Blood Specimen Description .BLOOD Special Requests LT HAND 6ML Culture NO GROWTH 5 DAYS Report Status FINAL 01/06/2022 Normal [facility] Comment on above: Performed By: #### U RNA, URTPRT, UMICAO, UEOS, UA #### [facility] [address] [place] [address] [id number] Loan Officer: Ronn Arias MD KYLE SCREEN WITH REFLEXon Anti ds DNA 5.8 NINF [facility] Comment on above: Reference Range: <10.0 Negative 10.0-15.0 Equivocal >15.0 Positive ARJUN Antibodies Screen 0.3 U/mL [facility] - 0.7 U/mL [facility] Comment on above: Reference Range: <0.7 Negative 0.7-1.0 Equivocal >1.0 Positive ARJUN Screen includes U1RNP,RNP70,Sm,Ro(SS-A),La(SS-B),CENP,Scl-70,Pippa-1 Nuclear Ab IF (S) [Titer] Negative NEGATIVE [facility] KYLE Screen w/reflexon 2021 KYLE Screen Negative Normal NEG [facility] Comment on above: Performed By: #### U RNA, URTPRT, UMICAO, UEOS, UA #### [facility] [address] [place] [address] [phone] Loan Officer: Ronn Arias MD Anti-dsDNA 5.8 IU/mL Normal <10.0 [facility] Comment on above: Result Comment: Reference Range: <10.0 Negative 10.0-15.0 Equivocal >15.0 Positive Performed By: #### U RNA, URTPRT, UMICAO, UEOS, UA #### [facility] [address] [place] [address] [phone] Loan Officer: Ronn Arias MD ARJUN Screen 0.3 U/mL Normal <0.7 [facility] Comment on above: Result Comment: Reference Range: <0.7 Negative 0.7-1.0 Equivocal >1.0 Positive ARJUN Screen includes U1RNP,RNP70,Sm,Ro(SS-A),La(SS-B),CENP,Scl-70,Pippa-1 Performed By: #### U RNA, URTPRT, UMICAO, UEOS, UA #### [facility] [address] [place] [address] Loan Officer: Ronn Arias MD Basic Metabolic Panel 12-21 Anion gap [Moles/Vol] 14 mmol/L 9 - 17 mmol/L [facility] [employer] Calcium [Mass/Vol] 6.4 mg/dL Low 8.6 - 10. 4 mg/dL [facility] Chloride [Moles/Vol] 108 mmol/L High 98 - 10 7 mmol/L [facility] CO2 [Moles/Vol] 25 mmol/L 20 - 31 mmol/L [facility] Creatinine [Mass/Vol] 2.5 mg/dL High 0.7 - 1.2 mg/dL [facility] GFR 31 mL/min Low 60 - PI NF mL/min [facility] GFR Non- 26 mL/min Low 60 - PINF mL/min [facility] GFR/1.73 sq M.predicted MDRD (S/P/Bld) [Vol rate/Area] [facility] [employer] Comment on above: Average GFR for 60-6 9 years old: 85 mL/min/1.73sq m Chronic Kidney Disease: <60 mL/min/1.73sq m Kidney failure: <15 mL/min/1.73sq m eGFR calculated using average adult body mass. Additional eGFR calculator available at: http://www.[email or web address]/multiple_crcl_2012.htm Glucose [Mass/Vol] 99 mg/dL 70 - 99 mg/dL [facility] Interpretation and review of laboratory results Abnormal [facility] Potassium [Moles/Vol] 4.6 mmol/L 3.7 - 5.3 mmol/L [facility] Sodium [Moles/Vol] 147 mmol/L High 135 - 144 mmol/L [facility] Urea nitrogen (BldV) [Mass/Vol] 40 mg/dL High 8 - 23 mg/dL [facility] Basic Metabolic Profon 01-05 (cont.) Normal [facility] Comment on above: Result Comment: Aver age GFR for 60-69 years old: 85 mL/min/1.73sq m Chronic Kidney Disease: <60 mL/min/1.73sq m Kidney failure: <15 mL/min/1.73sq m eGFR calculated using average adult body mass. Additional eGFR calculator available at: http://www.[employer]/multiple_crcl_2011.htm Performed By: #### U RNA, URTPRT, UMICAO, UEOS, UA #### [employer] [address] [place] [address] [phone] Loan Officer: Ronn Arias MD Anion gap [Moles/Vol] 14 mmol/L Normal 9-17 [facility] Comment on above: Performed By: #### U RNA, URTPRT, UMICAO, UEOS, UA #### [employer] [address] [place] [phone] Loan Officer: Ronn Arias MD Calcium [Mass/Vol] 6.4 mg/dL Low 8.6-10.4 [facility] Comment on above: Performed By: #### U RNA, URTPRT, UMICAO, UEOS, UA #### [facility] [address] [place] [address] Loan Officer: Ronn Arias MD Chloride [Moles/Vol] 108 mmol/L High 98-107 [facility] Comment on above: Performed By: #### U RNA, URTPRT, UMICAO, UEOS, UA #### [employer] [address] [place] [address] [phone] Loan Officer: Ronn Arias MD CO2 [Moles/Vol] 25 mmol/L Normal 20-31 [facility] Comment on above: Performed By: #### U RNA, URTPRT, UMICAO, UEOS, UA #### [address] [address] Loan Officer: Ronn Arias MD Creatinine [Mass/Vol] 2.50 mg/dL High 0.70-1.20 [facility] Comment on above: Performed By: #### U RNA, URTPRT, UMICAO, UEOS, UA #### [address] [phone] Loan Officer: Ronn Arias MD GFR, Amer 31 mL/min Low >60 [facility] Comment on above: Performed By: #### U RNA, URTPRT, UMICAO, UEOS, UA #### [place] [address] Loan Officer: Ronn Arias MD GFR,non Amer 26 mL/min Low >60 [facility] Comment on above: Performed By: #### U RNA, URTPRT, UMICAO, UEOS, UA #### [address] [phone] Loan Officer: Ronn Arias MD Glucose [Mass/Vol] 99 mg/dL Normal 70-99 [facility] Comment on above: Performed By: #### U RNA, URTPRT, UMICAO, UEOS, UA #### [address] [address] Loan Officer: Ronn Arias MD Potassium [Moles/Vol] 4.6 mmol/L Normal 3.7-5.3 [facility] Comment on above: Performed By: #### U RNA, URTPRT, UMICAO, UEOS, UA #### [address] [address] Loan Officer: Ronn Arias MD Sodium [Moles/Vol] 147 mmol/L High 135-144 [facility] Comment on above: Performed By: #### U RNA, URTPRT, UMICAO, UEOS, UA #### [address] [address] Loan Officer: Ronn Arias MD Urea nitrogen [Mass/Vol] 40 mg/dL High 8-23 [facility] Comment on above: Performed By: #### U RNA, URTPRT, UMICAO, UEOS, UA #### [address] [phone] Loan Officer: Ronn Arias MD IMMUNOFIXATION SERUM PROFILE on 01-05-2022 Pathologist Cyto stain Nom (Cvx/Vag) [ID] Reviewed by pathologist: Kailee Portillo M.D. [facility] Serum IFX Interp IMMUNOFIXATION IS NE GATIVE FOR MONOCLONAL IMMUNOGLOBULIN. [facility] Immunofixation,Bloodon 01-05 IFX - Interpret. IMMUNOFIXATION IS NE GATIVE FOR MONOCLONAL IMMUNOGLOBULIN. [facility] Comment on above: Performed By: #### U RNA, URTPRT, UMICAO, UEOS, UA #### [address] [phone] Loan Officer: Ronn Arias MD Pathologist Review: Reviewed by patholog ist: Kailee Portillo M.D. [facility] Comment on above: Performed By: #### U RNA, URTPRT, UMICAO, UEOS, UA #### [address] [address] Loan Officer: Ronn Arias MD Basic Metab w/rfx MGon 01-04 (cont.) [facility] Comment on above: Result Comment: Aver age GFR for 60-69 years old: 85 mL/min/1.73sq m Chronic Kidney Disease: <60 mL/min/1.73sq m Kidney failure: <15 mL/min/1.73sq m eGFR calculated using average adult body mass. Additional eGFR calculator available at: http://www.[employer]/multiple_crcl_2012.htm Performed By: #### U RNA, URTPRT, UMICAO, UEOS, UA #### [employer] [address] [place] [phone] Loan Officer: Ronn Arias MD Anion gap [Moles/Vol] 13 mmol/L Normal 9-17 [facility] Comment on above: Performed By: #### U RNA, URTPRT, UMICAO, UEOS, UA #### [facility] [address] [place] [phone] Loan Officer: Ronn Arias MD Calcium [Mass/Vol] 6.6 mg/dL Low 8.6-10.4 [facility] Comment on above: Performed By: #### U RNA, URTPRT, UMICAO, UEOS, UA #### [employer] [address] [place] [phone] Loan Officer: Ronn Arias MD Chloride [Moles/Vol] 107 mmol/L Normal 98-107 [facility] Comment on above: Performed By: #### U RNA, URTPRT, UMICAO, UEOS, UA #### [employer] [address] [place] [phone] Loan Officer: Ronn Arias MD CO2 [Moles/Vol] 21 mmol/L Normal 20-31 [facility] Comment on above: Performed By: #### U RNA, URTPRT, UMICAO, UEOS, UA #### [employer] [address] [place] [phone] Loan Officer: Ronn Arias MD Creatinine [Mass/Vol] 3.07 mg/dL High 0.70-1.20 [facility] Comment on above: Performed By: #### U RNA, URTPRT, UMICAO, UEOS, UA #### [facility] [address] [place] [phone] Loan Officer: Ronn Arias MD GFR, Amer 25 mL/min Low >60 [facility] Comment on above: Performed By: #### U RNA, URTPRT, UMICAO, UEOS, UA #### [facility] [address] [place] [phone] Loan Officer: Ronn Arias MD GFR,non Amer 20 mL/min Low >60 [facility] Comment on above: Performed By: #### U RNA, URTPRT, UMICAO, UEOS, UA #### [address] [address] Loan Officer: Ronn Arias MD Glucose [Mass/Vol] 95 mg/dL Normal 70-99 [facility] Comment on above: Performed By: #### U RNA, URTPRT, UMICAO, UEOS, UA #### [facility] [address] [place] [phone] Loan Officer: Ronn Arias MD Potassium [Moles/Vol] 4.3 mmol/L Normal 3.7-5.3 [facility] Comment on above: Performed By: #### U RNA, URTPRT, UMICAO, UEOS, UA #### [facility] [address] [place] [phone] Loan Officer: Ronn Arias MD Sodium [Moles/Vol] 141 mmol/L Normal 135-144 [facility] Comment on above: Performed By: #### U RNA, URTPRT, UMICAO, UEOS, UA #### [facility] [address] [place] [phone] Loan Officer: Ronn Arias MD Urea nitrogen [Mass/Vol] 54 mg/dL High 8-23 [facility] Comment on above: Performed By: #### U RNA, URTPRT, UMICAO, UEOS, UA #### [facility] [address] [place], [place] [phone] Loan Officer: Ronn Arias MD Basic Metabolic Panel w/ Ref luz to MGon 01-04-2022 Anion gap [Moles/Vol] 13 mmol/L 9 - 17 mmol/L [facility] [employer] Calcium [Mass/Vol] 6.6 mg/dL Low 8.6 - 10. 4 mg/dL [facility] Chloride [Moles/Vol] 107 mmol/L 98 - 10 7 mmol/L [facility] [employer] CO2 [Moles/Vol] 21 mmol/L 20 - 31 mmol/L [facility] [employer] Creatinine [Mass/Vol] 3.07 mg/dL High 0.7 - 1.2 mg/dL [facility] GFR 25 mL/min Low 60 - PI NF mL/min [employer] [facility] GFR Non- 20 mL/min Low 60 - PINF mL/min [facility] GFR/1.73 sq M.predicted MDRD (S/P/Bld) [Vol rate/Area] [facility] Comment on above: Average GFR for 60-6 9 years old: 85 mL/min/1.73sq m Chronic Kidney Disease: <60 mL/min/1.73sq m Kidney failure: <15 mL/min/1.73sq m eGFR calculated using average adult body mass. Additional eGFR calculator available at: http://www.[employer].com/multiple_crcl_2012.htm Glucose [Mass/Vol] 95 mg/dL 70 - 99 mg/dL [facility] Interpretation and review of laboratory results Abnormal [facility] Potassium [Moles/Vol] 4.3 mmol/L 3.7 - 5.3 mmol/L [facility] Sodium [Moles/Vol] 141 mmol/L 135 - 144 mmol/L [facility] Urea nitrogen (BldV) [Mass/Vol] 54 mg/dL High 8 - 23 mg/dL [facility] CBC with Auto Differentialon 01-04-2022 Absolute Eos # 0.19 [facility] Absolute Immature Granulocyte 0.09 [facility] Absolute Lymph # 1.34 [facility] Absolute Huron # 1.01 [facility] Basophils Absolute [facility] Basophils/100 WBC (Bld) 0 % 0 - 2 % [facility] Eosinophils/100 WBC (Bld) 2 % 1 - 4 % [facility] Hematocrit (Bld) [Volume fraction] 28.4 % Low 40.7 - 50.3 % [facility] Hemoglobin (Bld) [Mass/Vol] 9.3 g/dL Low 13 - 17 g/dL [facility] Immature granulocytes/100 WBC (Bld) 1 % High 0 [facility] Interpretation and review of laboratory results Abnormal [facility] Lymphocytes/100 WBC (Bld) 11 % Low 24 - 43 % [facility] MCH (RBC) [Entitic mass] 27.4 pg 25.2 - 33.5 pg [facility] MCHC (RBC) [Mass/Vol] 32.7 g/dL 28.4 - 34.8 g/dL [facility] MCV (RBC) [Entitic vol] 83.8 fL 82.6 - 102.9 fL [facility] Monocytes/100 WBC (Bld) 8 % 3 - 12 % [facility] NRBC Automated 0.0 0.0 per 100 WBC [facility] Platelet distribution width (Bld) [Ratio] 14.3 % 11.8 - 14.4 % [facility] Platelet mean volume (Bld) [Entitic vol] 10.6 fL 8.1 - 13.5 fL [facility] Platelets (Bld) [#/Vol] 177 10*3/uL [facility] RBC (Bld) [#/Vol] 3.39 10*6/uL Low 4.21 - 5.77 m/uL [facility] Segmented neutrophils/100 WBC (Bld) 78 % High 36 - 65 % [facility] Segs Absolute 9.54 High [facility] WBC (Bld) [#/Vol] 12.2 10*3/uL High [facility] CBC with Diffon 01-04-2022 Abs. Basophil <0.03 Normal 0.00-0.20 [facility] Comment on above: Performed By: #### U RNA, URTPRT, UMICAO, UEOS, UA #### [facility] [address] [place] [phone] Loan Officer: Ronn Arias MD Abs.Imm.Granulocyte 0.09 k/uL Normal 0.00-0.30 [facility] Comment on above: Performed By: #### U RNA, URTPRT, UMICAO, UEOS, UA #### [facility] [address] [place] [address] Loan Officer: Ronn Arias MD Abs.Neutrophil (Seg) 9.54 k/uL High 1.50-8.10 [facility] Comment on above: Performed By: #### U RNA, URTPRT, UMICAO, UEOS, UA #### [facility] [address] [place] [phone] Loan Officer: Ronn Arias MD Basophils/100 WBC (Bld) 0 % Normal 0-2 [facility] Comment on above: Performed By: #### U RNA, URTPRT, UMICAO, UEOS, UA #### [facility] [address] [place] [phone] Loan Officer: Ronn Arias MD Eosinophils (Bld) [#/Vol] 0.19 10*3/uL Normal 0.00-0.44 [facility] Comment on above: Performed By: #### U RNA, URTPRT, UMICAO, UEOS, UA #### [facility] [address] [place] [phone] Loan Officer: Ronn Arias MD Eosinophils/100 WBC (Bld) 2 % Normal 1-4 [facility] Comment on above: Performed By: #### U RNA, URTPRT, UMICAO, UEOS, UA #### [facility] [address] [place] [address] Loan Officer: Ronn Arias MD Immature granulocytes/100 WBC (Bld) 1 % High 0 [facility] Comment on above: Performed By: #### U RNA, URTPRT, UMICAO, UEOS, UA #### [facility] [address] [place] [phone] Loan Officer: Ronn Arias MD Lymphocytes (Bld) [#/Vol] 1.34 10*3/uL Normal 1.10-3.70 [facility] Comment on above: Performed By: #### U RNA, URTPRT, UMICAO, UEOS, UA #### [address] [address] Loan Officer: Ronn Arias MD Lymphocytes/100 WBC (Bld) 11 % Low 24-43 [facility] Comment on above: Performed By: #### U RNA, URTPRT, UMICAO, UEOS, UA #### [facility] [place] [address] Loan Officer: Ronn Arias MD Monocytes (Bld) [#/Vol] 1.01 10*3/uL Normal 0.10-1.20 [facility] Comment on above: Performed By: #### U RNA, URTPRT, UMICAO, UEOS, UA #### [facility] [address] [place] [address] Loan Officer: Ronn Arias MD Monocytes/100 WBC (Bld) 8 % Normal 3-12 [facility] Comment on above: Performed By: #### U RNA, URTPRT, UMICAO, UEOS, UA #### [facility] [address] [place] [phone] Loan Officer: Ronn Arias MD Neutrophil (Seg) 78 % High 36-65 [facility] Comment on above: Performed By: #### U RNA, URTPRT, UMICAO, UEOS, UA #### [facility] [address] [place] [phone] Loan Officer: Ronn Arias MD Erythrocyte distribution width (RBC) [Ratio] 14.3 % Normal 11.8-14.4 [facility] Comment on above: Performed By: #### U RNA, URTPRT, UMICAO, UEOS, UA #### [facility] [address] [place] [phone] Loan Officer: Ronn Arias MD Hematocrit (Bld) [Volume fraction] 28.4 % Low 40.7-50.3 [facility] Comment on above: Performed By: #### U RNA, URTPRT, UMICAO, UEOS, UA #### [facility] [address] [place] [phone] Loan Officer: Ronn Arias MD Hemoglobin (Bld) [Mass/Vol] 9.3 g/dL Low 13.0-17.0 [facility] Comment on above: Performed By: #### U RNA, URTPRT, UMICAO, UEOS, UA #### [facility] [address] [place] [phone] Loan Officer: Ronn Arias MD MCH (RBC) [Entitic mass] 27.4 pg Normal 25.2-33.5 [facility] Comment on above: Performed By: #### U RNA, URTPRT, UMICAO, UEOS, UA #### [facility] [address] [place] [phone] Loan Officer: Ronn Arias MD MCHC (RBC) [Mass/Vol] 32.7 g/dL Normal 28.4-34.8 [facility] Comment on above: Performed By: #### U RNA, URTPRT, UMICAO, UEOS, UA #### [address] [address] Loan Officer: Ronn Arias MD MCV (RBC) [Entitic vol] 83.8 fL Normal 82.6-102.9 [facility] Comment on above: Performed By: #### U RNA, URTPRT, UMICAO, UEOS, UA #### [address] [address] Loan Officer: Ronn Arias MD NRBC Automated 0.0 per 100 WBC Normal 0.0 [facility] Comment on above: Performed By: #### U RNA, URTPRT, UMICAO, UEOS, UA #### [address] [address] Loan Officer: Ronn Arias MD Platelet mean volume (Bld) [Entitic vol] 10.6 fL Normal 8.1-13.5 [facility] Comment on above: Performed By: #### U RNA, URTPRT, UMICAO, UEOS, UA #### [address] [address] Loan Officer: Ronn Arias MD Platelets (Bld) [#/Vol] 177 10*3/uL Normal 138-453 [facility] Comment on above: Performed By: #### U RNA, URTPRT, UMICAO, UEOS, UA #### [address] [address] Loan Officer: Ronn Arias MD RBC (Bld) [#/Vol] 3.39 10*6/uL Low 4.21-5.77 [facility] Comment on above: Performed By: #### U RNA, URTPRT, UMICAO, UEOS, UA #### [place] [phone] [place] [address] Loan Officer: Ronn Arias MD WBC (Bld) [#/Vol] 12.2 10*3/uL High 3.5-11.3 [facility] Comment on above: Performed By: #### U RNA, URTPRT, UMICAO, UEOS, UA #### [address] [address] Loan Officer: Ronn Arias MD Basic Metab w/rfx MGon 01-03 (cont.) Normal [facility] Comment on above: Result Comment: Aver age GFR for 60-69 years old: 85 mL/min/1.73sq m Chronic Kidney Disease: <60 mL/min/1.73sq m Kidney failure: <15 mL/min/1.73sq m eGFR calculated using average adult body mass. Additional eGFR calculator available at: http://www.[employer].Apieron/multiple_crcl_2012.htm Performed By: #### L ACDS #### [address] [address] Loan Officer: Ronn Arias MD Anion gap [Moles/Vol] 16 mmol/L Normal 9-17 [facility] Comment on above: Performed By: #### L ACDS #### [address] [address] Loan Officer: Ronn Arias MD Calcium [Mass/Vol] 6.9 mg/dL Low 8.6-10.4 [facility] Comment on above: Performed By: #### L ACDS #### [address] [address] Loan Officer: Ronn Arias MD Chloride [Moles/Vol] 106 mmol/L Normal 98-107 [facility] Comment on above: Performed By: #### L ACDS #### [address] [address] Loan Officer: Ronn Arias MD CO2 [Moles/Vol] 16 mmol/L Low 20-31 [facility] Comment on above: Performed By: #### L ACDS #### [address] [address] Loan Officer: Ronn Arias MD Creatinine [Mass/Vol] 3.44 mg/dL High 0.70-1.20 [facility] Comment on above: Performed By: #### L ACDS #### [address] [address] Loan Officer: Ronn Arias MD GFR, Amer 22 mL/min Low >60 [facility] Comment on above: Performed By: #### L ACDS #### [address] [address] Loan Officer: Ronn Arias MD GFR,non Amer 18 mL/min Low >60 [facility] Comment on above: Performed By: #### L ACDS #### [address] [address] Loan Officer: Ronn Arias MD Glucose [Mass/Vol] 138 mg/dL High 70-99 [facility] Comment on above: Performed By: #### L ACDS #### [address] [address] Loan Officer: Ronn Arias MD Potassium [Moles/Vol] 4.8 mmol/L Normal 3.7-5.3 [facility] Comment on above: Performed By: #### L ACDS #### [address] [address] Loan Officer: Ronn Arias MD Sodium [Moles/Vol] 138 mmol/L Normal 135-144 [facility] Comment on above: Performed By: #### L ACDS #### [facility] [address] [place], [place] [phone] Loan Officer: Ronn Arias MD Urea nitrogen [Mass/Vol] 53 mg/dL High 8-23 [facility] Comment on above: Performed By: #### L ACDS #### [facility] [address] [place], [place] [phone] Loan Officer: Ronn Arias MD Basic Metabolic Panel w/ Ref luz to MGon 01-03-2022 Anion gap [Moles/Vol] 16 mmol/L 9 - 17 mmol/L [facility] Calcium [Mass/Vol] 6.9 mg/dL Low 8.6 - 10. 4 mg/dL [facility] Chloride [Moles/Vol] 106 mmol/L 98 - 10 7 mmol/L [facility] CO2 [Moles/Vol] 16 mmol/L Low 20 - 31 mmol/L [facility] Creatinine [Mass/Vol] 3.44 mg/dL High 0.7 - 1.2 mg/dL [facility] GFR 22 mL/min Low 60 - PI NF mL/min [facility] GFR Non- 18 mL/min Low 60 - PINF mL/min [facility] GFR/1.73 sq M.predicted MDRD (S/P/Bld) [Vol rate/Area] [facility] Comment on above: Average GFR for 60-6 9 years old: 85 mL/min/1.73sq m Chronic Kidney Disease: <60 mL/min/1.73sq m Kidney failure: <15 mL/min/1.73sq m eGFR calculated using average adult body mass. Additional eGFR calculator available at: http://www.[employer].Apieron/multiple_crcl_2012.htm Glucose [Mass/Vol] 138 mg/dL High 70 - 99 mg/dL [facility] Potassium [Moles/Vol] 4.8 mmol/L 3.7 - 5.3 mmol/L [facility] Sodium [Moles/Vol] 138 mmol/L 135 - 144 mmol/L [facility] Urea nitrogen (BldV) [Mass/Vol] 53 mg/dL High 8 - 23 mg/dL [facility] C3on 01-03-2022 C3 108 mg/dL Normal 90-180 [facility] Comment on above: Performed By: #### U RNA, URTPRT, UMICAO, UEOS, UA #### [facility] [address] [place], [place] [phone] Loan Officer: Ronn Arias MD C3 COMPLEMENTon 01-03-2022 Complement C3 108 mg/dL 90 - 180 mg/dL [facility] C4on 01-03-2022 C4 21 mg/dL Normal 10-40 [facility] Comment on above: Performed By: #### U RNA, URTPRT, UMICAO, UEOS, UA #### [facility] [address] [place], [place] [phone] Loan Officer: Ronn Arias MD C4 COMPLEMENTon 01-03-2022 Complement C4 21 mg/dL 10 - 40 mg/dL [facility] CBC with Auto Differentialon 01-03-2022 Absolute Eos # [facility] Absolute Immature Granulocyte 0.09 [facility] Absolute Lymph # 0.76 Low [facility] Absolute Huron # 0.39 [facility] Basophils Absolute [facility] Basophils/100 WBC (Bld) 0 % 0 - 2 % [facility] Eosinophils/100 WBC (Bld) 0 % Low 1 - 4 % [facility] Hematocrit (Bld) [Volume fraction] 31.4 % Low 40.7 - 50.3 % [facility] Hemoglobin (Bld) [Mass/Vol] 10.3 g/dL Low 13 - 17 g/dL [facility] Immature granulocytes/100 WBC (Bld) 1 % High 0 [facility] Interpretation and review of laboratory results Abnormal [facility] Lymphocytes/100 WBC (Bld) 6 % Low 24 - 43 % [facility] MCH (RBC) [Entitic mass] 27.5 pg 25.2 - 33.5 pg [facility] MCHC (RBC) [Mass/Vol] 32.8 g/dL 28.4 - 34.8 g/dL [facility] MCV (RBC) [Entitic vol] 83.7 fL 82.6 - 102.9 fL [facility] Monocytes/100 WBC (Bld) 3 % 3 - 12 % [facility] NRBC Automated 0.0 0.0 per 100 WBC [facility] Platelet distribution width (Bld) [Ratio] 14.5 % High 11.8 - 14.4 % [facility] Platelet mean volume (Bld) [Entitic vol] 10.9 fL 8.1 - 13.5 fL [facility] Platelets (Bld) [#/Vol] 170 10*3/uL [facility] RBC (Bld) [#/Vol] 3.75 10*6/uL Low 4.21 - 5.77 m/uL [facility] RBC (Bld) [#/Vol] ANISOCYTOSIS PRESENT [facility] Segmented neutrophils/100 WBC (Bld) 90 % High 36 - 65 % [facility] Segs Absolute 11.26 High [facility] WBC (Bld) [#/Vol] 12.5 10*3/uL High [facility] CBC with Diffon 01-03-2022 Abs. Basophil <0.03 Normal 0.00-0.20 [facility] Comment on above: Performed By: #### L ACDS #### Digital [employer] [facility] [place] [address] Loan Officer: Ronn Arias MD Abs. Eosinophil <0.03 Normal 0.00-0.44 [facility] Comment on above: Performed By: #### L ACDS #### [employer] [facility] [place], [place] [phone] Loan Officer: Ronn Arias MD Abs.Imm.Granulocyte 0.09 k/uL Normal 0.00-0.30 [facility] Comment on above: Performed By: #### L ACDS #### [address] [address] Loan Officer: Ronn Arias MD Abs.Neutrophil (Seg) 11.26 k/uL High 1.50-8.10 [facility] Comment on above: Performed By: #### L ACDS #### [address] [address] Loan Officer: Ronn Arias MD Basophils/100 WBC (Bld) 0 % Normal 0-2 [facility] Comment on above: Performed By: #### L ACDS #### [address] [address] Loan Officer: Ronn Arias MD Eosinophils/100 WBC (Bld) 0 % Low 1-4 [facility] Comment on above: Performed By: #### L ACDS #### [address] [address] Loan Officer: Ronn Arias MD Erythrocyte distribution width (RBC) [Ratio] 14.5 % High 11.8-14.4 [facility] Comment on above: Performed By: #### L ACDS #### [address] [address] Loan Officer: Ronn Arias MD Hematocrit (Bld) [Volume fraction] 31.4 % Low 40.7-50.3 [facility] Comment on above: Performed By: #### L ACDS #### [address] [address] Loan Officer: Ronn Arias MD Hemoglobin (Bld) [Mass/Vol] 10.3 g/dL Low 13.0-17.0 [facility] Comment on above: Performed By: #### L ACDS #### [address] [place] [address] Loan Officer: Ronn Arias MD Immature granulocytes/100 WBC (Bld) 1 % High 0 [facility] Comment on above: Performed By: #### L ACDS #### [address] [address] Loan Officer: Ronn Arias MD Lymphocytes (Bld) [#/Vol] 0.76 10*3/uL Low 1.10-3.70 [facility] Comment on above: Performed By: #### L ACDS #### [address] [address] Loan Officer: Ronn Arias MD Lymphocytes/100 WBC (Bld) 6 % Low 24-43 [facility] Comment on above: Performed By: #### L ACDS #### [address] [address] Loan Officer: Ronn Arias MD MCH (RBC) [Entitic mass] 27.5 pg Normal 25.2-33.5 [facility] Comment on above: Performed By: #### L ACDS #### [address] [address] Loan Officer: Ronn Arias MD MCHC (RBC) [Mass/Vol] 32.8 g/dL Normal 28.4-34.8 [facility] Comment on above: Performed By: #### L ACDS #### [address] [address] Loan Officer: Ronn Arias MD MCV (RBC) [Entitic vol] 83.7 fL Normal 82.6-102.9 [facility] Comment on above: Performed By: #### L ACDS #### [address] [address] Loan Officer: Ronn Arias MD Monocytes (Bld) [#/Vol] 0.39 10*3/uL Normal 0.10-1.20 [facility] Comment on above: Performed By: #### L ACDS #### [address] [address] Loan Officer: Ronn Arias MD Monocytes/100 WBC (Bld) 3 % Normal 3-12 [facility] Comment on above: Performed By: #### L ACDS #### [address] [address] Loan Officer: Ronn Arias MD Neutrophil (Seg) 90 % High 36-65 [facility] Comment on above: Performed By: #### L ACDS #### [address] [address] Loan Officer: Ronn Arias MD NRBC Automated 0.0 per 100 WBC Normal 0.0 [facility] Comment on above: Performed By: #### L ACDS #### [address] [address] Loan Officer: Ronn Arias MD Platelet mean volume (Bld) [Entitic vol] 10.9 fL Normal 8.1-13.5 [facility] Comment on above: Performed By: #### L ACDS #### [address] [address] Loan Officer: Ronn Arias MD Platelets (Bld) [#/Vol] 170 10*3/uL Normal 138-453 [facility] Comment on above: Performed By: #### L ACDS #### [address] [address] Loan Officer: Ronn Arias MD RBC (Bld) [#/Vol] 3.75 10*6/uL Low 4.21-5.77 [facility] Comment on above: Performed By: #### L ACDS #### [address] [address] Loan Officer: Ronn Arias MD RBC morphology finding Nom (Bld) ANISOCYTOSIS PRESENT Normal [facility] Comment on above: Performed By: #### L ACDS #### [address] [address] Loan Officer: Ronn Arias MD WBC (Bld) [#/Vol] 12.5 10*3/uL High 3.5-11.3 [facility] Comment on above: Performed By: #### L ACDS #### [address] [address] Loan Officer: Ronn Arias MD EOSINOPHILS, URINEon 022 Eosinophil, Ur NONE SEEN NONE SEEN [facility] Eosinophils, Urineon 022 Eosinophils, Urine NONE SEEN Normal NSN [facility] Comment on above: Performed By: #### U RNA, URTPRT, UMICAO, UEOS, UA #### [address] [address] Loan Officer: Ronn Arias MD [place] + Lambdaon 2021 [place] Lt Chains 4.01 mg/dL High 0.37-1.94 [facility] Comment on above: Performed By: #### U RNA, URTPRT, UMICAO, UEOS, UA #### [address] [address] Loan Officer: Ronn Arias MD Free [place]/Lambda Rat 1.94 High 0.26-1.65 [facility] Comment on above: Performed By: #### U RNA, URTPRT, UMICAO, UEOS, UA #### [facility] [address] [place] [phone] Loan Officer: Ronn Arias MD Free [place] Lt Chains 2.07 mg/dL Normal 0.57-2.63 [facility] Comment on above: Performed By: #### U RNA, URTPRT, UMICAO, UEOS, UA #### [employer] [address] [place] [address] Loan Officer: Ronn Arias MD Hepatic Function Panelon Albumin [Mass/Vol] 3.2 g/dL Low 3.5 - 5.2 g/dL [facility] Albumin/Globulin [Mass ratio] 0.9 {ratio} Low 1 - 2.5 [facility] ALP (Bld) [Catalytic activity/Vol] 104 U/L 40 - 129 U/L [facility] ALT [Catalytic activity/Vol] 94 U/L High 5 - 41 U/L [facility] AST [Catalytic activity/Vol] 49 U/L High NINF - 40 U/L [facility] Bilirubin [Mass/Vol] 1.1 mg/dL 0.3 - 1 .2 mg/dL [facility] Bilirubin, Indirect 0.5 mg/dL 0 - 1 mg/dL [facility] Bilirubin.indirect [Mass/Vol] 0.6 mg/dL High NINF - 0.31 mg/dL [facility] Free PSA/Total PSA [Mass fraction] 6.7 g/dL 6.4 - 8.3 g/dL [facility] [place]/Lambda Quantitative Fr ee Light Chains, Serumon 01-03-2022 [place]/Lambda Ratio 1.94 High 0.26 - 1.65 [facility] Interpretation and review of laboratory results Abnormal [facility] [place] Free Light Chains QNT 4.01 mg/dL High 0.37 - 1.94 mg/dL [facility] [employer] Lambda Free [place] Chains QNT 2.07 mg/dL 0.57 - 2.63 mg/dL [facility] [employer] Lactate, Sepsison 01-03-2022 Lactic Acid,Sep Wbld 1.8 mmol/L Normal 0.5-1.9 [facility] Comment on above: Performed By: #### L ACDS #### [employer] [address] [place] [address] [phone] Loan Officer: Ronn Arias MD Lactic Acid, Sepsis, Whole Blood 1.8 mmol/L 0.5 - 1.9 mmol/L [facility] Lactic Acid,Sep Wbld 1.4 mmol/L Normal 0.5-1.9 [facility] Comment on above: Performed By: #### U RNA, URTPRT, UMICAO, UEOS, UA #### [facility] [address] [place] [address] [phone] Loan Officer: Ronn Arias MD Lactic Acid, Sepsis, Whole Blood 1.4 mmol/L 0.5 - 1.9 mmol/L [facility] Lactic Acid,Sep Wbld 1.5 mmol/L Normal 0.5-1.9 [facility] Comment on above: Performed By: #### L ACDS #### [address] [phone] Loan Officer: Ronn Arias MD Lactic Acid, Sepsis, Whole Blood 1.5 mmol/L 0.5 - 1.9 mmol/L [facility] Lactic Acid,Sep Wbld 1.2 mmol/L Normal 0.5-1.9 [facility] Comment on above: Performed By: #### L ACDS #### [facility] [address] [place] [address] [phone] Loan Officer: Ronn Arias MD Lipaseon 1 Lipase [Catalytic activity/Vol] 250 U/L High 13-60 [facility] Comment on above: Performed By: #### L ACDS #### [facility] [address] [place] [phone] Loan Officer: Ronn Arias MD Lipase [Catalytic activity/Vol] 250 U/L High 13 - 60 U/L [facility] Liver Profileon 01-03-2022 Albumin [Mass/Vol] 3.2 g/dL Low 3.5-5.2 [facility] Comment on above: Performed By: #### L ACDS #### [address] [address] Loan Officer: Ronn Arias MD Albumin/Glob Ratio 0.9 Low 1.0-2.5 [facility] Comment on above: Performed By: #### L ACDS #### [address] [address] Loan Officer: Ronn Arias MD Alkaline Phos 104 U/L Normal 40-129 [facility] Comment on above: Performed By: #### L ACDS #### [address] [address] Loan Officer: Ronn Arias MD ALT [Catalytic activity/Vol] 94 U/L High 5-41 [facility] Comment on above: Performed By: #### L ACDS #### [address] [address] Loan Officer: Ronn Arias MD AST [Catalytic activity/Vol] 49 U/L High <40 [facility] Comment on above: Performed By: #### L ACDS #### [address] [address] Loan Officer: Ronn Arias MD Bilirubin [Mass/Vol] 1.1 mg/dL Normal 0.3-1.2 [facility] Comment on above: Performed By: #### L ACDS #### [address] [address] Loan Officer: Ronn Arias MD Bilirubin, Indirect 0.5 mg/dL Normal 0.00-1.00 [facility] Comment on above: Performed By: #### L ACDS #### [address] [phone] Loan Officer: Ronn Arias MD Bilirubin.indirect [Mass/Vol] 0.6 mg/dL High <0.31 [facility] Comment on above: Performed By: #### L ACDS #### [employer] [facility] [address] [place], [place] [phone] Loan Officer: Ronn Arias MD Protein [Mass/Vol] 6.7 g/dL Normal 6.4-8.3 [facility] Comment on above: Performed By: #### L ACDS #### [employer] [facility] [address] [place] [address] Loan Officer: Ronn Arias MD Microscopic Urinalysison Casts UA 2 TO 5 HYALINE Refer ence range defined for non-centrifuged specimen. [facility] Epithelial Cells UA None [facility] RBC, UA 2 TO 5 [facility] Comment on above: Reference range defi juan for non-centrifuged specimen. WBC, UA 2 TO 5 [facility] No Panel Informationon 01-03 [facility] Interpretation and review of laboratory results Abnormal [facility] Procalcitoninon 01-03-2022 Procalcitonin 16.48 ng/mL High <0.09 [facility] Comment on above: Result Comment: Suspected [...] entered into the Change in Procalcitonin Calculator (www.blamxj-dow-ajcdtubamz.Apieron) to determine the patient's Mortality Risk Prognosis In healthy neonates, plasma Procalcitonin (PCT) concentrations increase gradually after , reaching peak values at about 24 hours of age then decrease to normal values below 0.5 ng/mL by 48-72 hours of age. Performed By: #### L ACDS #### [employer] [facility] [address] [place] [phone] Loan Officer: Ronn Arias MD Interpretation and review of laboratory results Abnormal [facility] [employer] Procalcitonin 16.48 ng/mL High NINF - 0.09 ng/mL [facility] Comment on above: Suspected Sepsis: <0.50 ng/mL [...] entered into the Change in Procalcitonin Calculator (www.wbjdjn-sfy-qcuwqdksjt.Apieron) to determine the patient's Mortality Risk Prognosis In healthy neonates, plasma Procalcitonin (PCT) concentrations increase gradually after , reaching peak values at about 24 hours of age then decrease to normal values below 0.5 ng/mL by 48-72 hours of age. [facility] Protein / creatinine ratio, urineon 01-03-2022 Creatinine, Ur 84.8 mg/dL 39 - 259 mg/dL [facility] Protein (U) [Mass/Vol] 16 mg/dL [facility] Comment on above: No normal range esta blished. Urine Total Protein Creatinine Ratio 0.19 0 - 0.2 [facility] Protein,Tot,[place] Uron 2021 Creatinine [Mass/Vol] 84.8 mg/dL Normal 39.0-259.0 [facility] Comment on above: Performed By: #### U RNA, URTPRT, UMICAO, UEOS, UA #### [employer] [address] [place] [address] Loan Officer: Ronn Arias MD Tot Prot. Conc. 16 mg/dL Normal [facility] Comment on above: Result Comment: No n ormal range established. Performed By: #### U RNA, URTPRT, UMICAO, UEOS, UA #### [employer] [facility] [address] [place] [address] Loan Officer: Ronn Arias MD TP/Cre Ratio 0.19 Normal 0.00-0.20 [facility] Comment on above: Performed By: #### U RNA, URTPRT, UMICAO, UEOS, UA #### [employer] [facility] [address] [place] [address] Loan Officer: Ronn Arias MD SODIUM, URINE, RANDOMon - Sodium (U) [Moles/Vol] 83 mmol/L [facility] Comment on above: No normal range [...] two black choleliths, each measuring 0.5 cm. 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 tm Microscopic Description Microscopic examination performed. SURGICAL PATHOLOGY CONSULTATION Patient Name: YOLI ANTUNEZ [facility] Rec: [id number] Path Number: [id number] [facility] ANATOMIC PATHOLOGY [address] [place] [phone] [facility] Sodium, Random Uron 01-04-20 Sodium (U) [Moles/Vol] 83 mmol/L Normal [facility] Comment on above: Result Comment: No n ormal range established. Performed By: #### U RNA, URTPRT, UMICAO, UEOS, UA #### [employer] [address] [place] [address] [phone] Loan Officer: Ronn Arias MD Urinalysison 01-03-2022 Bilirubin Urine Negative NEGATIVE [facility] Color, UA Yellow Yellow [facility] Glucose, Ur Negative NEGATIVE [facility] Interpretation and review of laboratory results Abnormal [facility] Ketones Ql (U) Negative NEGATIVE [facility] Leukocyte esterase Test strip Ql (U) Negative NEGATIVE [facility] Nitrite, Urine Negative NEGATIVE [facility] pH, UA 5.5 5 - 8 [facility] Protein, UA TRACE Abnormal NEGATIVE [facility] Specific [place], UA 1.014 1.005 - 1.03 [facility] Turbidity UA Clear Clear [facility] Urine Hgb TRACE Abnormal NEGATIVE [facility] Urobilinogen, Urine Normal Normal [facility] Urinalysis, Routineon 2021 Bilirubin, SemiQt,Ur Negative Normal NEG [facility] Comment on above: Performed By: #### U RNA, URTPRT, UMICAO, UEOS, UA #### [employer] [address] Loan Officer: Ronn Arias MD Blood, Urine TRACE Abnormal NEG [facility] Comment on above: Performed By: #### U RNA, URTPRT, UMICAO, UEOS, UA #### [facility] [address] [place] [phone] Loan Officer: Ronn Arias MD Clarity (U) Clear Normal CLEAR [facility] Comment on above: Performed By: #### U RNA, URTPRT, UMICAO, UEOS, UA #### [facility] [address] [place] [phone] Loan Officer: Ronn Arias MD Color (U) Yellow Normal YEL [facility] Comment on above: Performed By: #### U RNA, URTPRT, UMICAO, UEOS, UA #### [facility] [address] [place] [phone] Loan Officer: Ronn Arias MD Glucose Ql (U) Negative Normal NEG [facility] Comment on above: Performed By: #### U RNA, URTPRT, UMICAO, UEOS, UA #### [facility] [address] [place] [phone] Loan Officer: Ronn Arias MD Ketones Ql (U) Negative Normal NEG [facility] Comment on above: Performed By: #### U RNA, URTPRT, UMICAO, UEOS, UA #### [facility] [address] [place] [phone] Loan Officer: Ronn Arias MD Leukocyte esterase Test strip Ql (U) Negative Normal NEG [facility] Comment on above: Performed By: #### U RNA, URTPRT, UMICAO, UEOS, UA #### [facility] [address] [place] [phone] Loan Officer: Ronn Arias MD Nitrite,Ur Negative Normal NEG [facility] Comment on above: Performed By: #### U RNA, URTPRT, UMICAO, UEOS, UA #### [facility] [address] [place] [phone] Loan Officer: Ronn Arias MD PH,Ur 5.5 Normal 5.0-8.0 [facility] Comment on above: Performed By: #### U RNA, URTPRT, UMICAO, UEOS, UA #### [facility] [address] [place] [phone] Loan Officer: Ronn Arias MD Protein Ql (U) TRACE Abnormal NEG [facility] Comment on above: Performed By: #### U RNA, URTPRT, UMICAO, UEOS, UA #### [address] [address] Loan Officer: Ronn Arias MD Spec. [place],Ur 1.014 Normal 1.005-1.03 0 [facility] Comment on above: Performed By: #### U RNA, URTPRT, UMICAO, UEOS, UA #### [address] [address] Loan Officer: Ronn Arias MD Urobilinogen,Ur Normal Normal NORM [facility] Comment on above: Performed By: #### U RNA, URTPRT, UMICAO, UEOS, UA #### [facility] [address] [place] [phone] Loan Officer: Ronn Arias MD Urinalysis,Microon 2 Casts 2 TO 5 HYALINE Normal 0-8 [facility] Comment on above: Result Comment: Refe rence range defined for non-centrifuged specimen. Performed By: #### U RNA, URTPRT, UMICAO, UEOS, UA #### [facility] [address] [place] [phone] Loan Officer: Ronn Arias MD Epithelial cells LM Ql (Urine sed) None Normal 0-5 [facility] Comment on above: Performed By: #### U RNA, URTPRT, UMICAO, UEOS, UA #### [facility] [address] [place] [address] Loan Officer: Ronn Arias MD Urine RBC's 2 TO 5 Normal 0-4 [facility] Comment on above: Result Comment: Refe rence range defined for non-centrifuged specimen. Performed By: #### U RNA, URTPRT, UMICAO, UEOS, UA #### [address] [address] Loan Officer: Ronn Arias MD Urine WBC's 2 TO 5 Normal 0-5 [facility] Comment on above: Performed By: #### U RNA, URTPRT, UMICAO, UEOS, UA #### [address] [address] Loan Officer: Ronn Arias MD Basic Metab w/rfx MGon 01-02 (cont.) Normal [facility] Comment on above: Result Comment: Aver age GFR for 60-69 years old: 85 mL/min/1.73sq m Chronic Kidney Disease: <60 mL/min/1.73sq m Kidney failure: <15 mL/min/1.73sq m eGFR calculated using average adult body mass. Additional eGFR calculator available at: http://www.[employer].com/multiple_crcl_2012.htm Performed By: #### L ACDS #### [address] [address] Loan Officer: Ronn Arias MD Anion gap [Moles/Vol] 14 mmol/L Normal 9-17 [facility] Comment on above: Performed By: #### L ACDS #### [address] [address] Loan Officer: Ronn Arias MD Calcium [Mass/Vol] 7.2 mg/dL Low 8.6-10.4 [facility] Comment on above: Performed By: #### L ACDS #### [address] [address] Loan Officer: Ronn Arias MD Chloride [Moles/Vol] 108 mmol/L High 98-107 [facility] Comment on above: Performed By: #### L ACDS #### [address] [address] Loan Officer: Ronn Arias MD CO2 [Moles/Vol] 20 mmol/L Normal 20-31 [facility] Comment on above: Performed By: #### L ACDS #### [address] [address] Loan Officer: Ronn Arias MD Creatinine [Mass/Vol] 3.51 mg/dL High 0.70-1.20 [facility] Comment on above: Performed By: #### L ACDS #### [address] [address] Loan Officer: Ronn Arias MD GFR, Amer 21 mL/min Low >60 [facility] Comment on above: Performed By: #### L ACDS #### [address] [address] Loan Officer: Ronn Arias MD GFR,non Amer 17 mL/min Low >60 [facility] Comment on above: Performed By: #### L ACDS #### [address] [address] Loan Officer: Ronn Arias MD Glucose [Mass/Vol] 122 mg/dL High 70-99 [facility] Comment on above: Performed By: #### L ACDS #### [address] [address] Loan Officer: Ronn Arias MD Potassium [Moles/Vol] 5.0 mmol/L Normal 3.7-5.3 [facility] Comment on above: Performed By: #### L ACDS #### [address] [address] Loan Officer: Ronn Arias MD Sodium [Moles/Vol] 142 mmol/L Normal 135-144 [facility] Comment on above: Performed By: #### L ACDS #### [address] [address] Loan Officer: Ronn Arias MD Urea nitrogen [Mass/Vol] 55 mg/dL High 8- [facility] Comment on above: Performed By: #### L ACDS #### [address] [address] Loan Officer: Ronn Arias MD (cont.) [facility] Comment on above: Result Comment: Aver age GFR for 60-69 years old: 85 mL/min/1.73sq m Chronic Kidney Disease: <60 mL/min/1.73sq m Kidney failure: <15 mL/min/1.73sq m eGFR calculated using average adult body mass. Additional eGFR calculator available at: http://www.[employer].Apieron/multiple_crcl_2011.htm Performed By: #### L IVP, BMPX, LIP, CDP #### [facility] [address] [place] [phone] Loan Officer: Ronn Arias MD Anion gap [Moles/Vol] 14 mmol/L Normal 9-17 [facility] Comment on above: Performed By: #### L IVP, BMPX, LIP, CDP #### [facility] [address] [place] [phone] Loan Officer: Ronn Arias MD Calcium [Mass/Vol] 7.2 mg/dL Low 8.6-10.4 [facility] Comment on above: Performed By: #### L IVP, BMPX, LIP, CDP #### [facility] [address] [place] [phone] Loan Officer: Ronn Arias MD Chloride [Moles/Vol] 109 mmol/L High 98-107 [facility] Comment on above: Performed By: #### L IVP, BMPX, LIP, CDP #### [facility] [address] [place] [phone] Loan Officer: Ronn Arias MD CO2 [Moles/Vol] 18 mmol/L Low 20-31 [facility] Comment on above: Performed By: #### L IVP, BMPX, LIP, CDP #### [facility] [address] [place] [phone] Loan Officer: Ronn Arias MD Creatinine [Mass/Vol] 4.02 mg/dL High 0.70-1.20 [facility] Comment on above: Performed By: #### L IVP, BMPX, LIP, CDP #### [facility] [address] [place] [phone] Loan Officer: Ronn Arias MD GFR, Amer 18 mL/min Low >60 [facility] Comment on above: Performed By: #### L IVP, BMPX, LIP, CDP #### [facility] [address] [place] [phone] Loan Officer: Ronn Arias MD GFR,non Amer 15 mL/min Low >60 [facility] Comment on above: Performed By: #### L IVP, BMPX, LIP, CDP #### [facility] [address] [place] [phone] Loan Officer: Ronn Arias MD Glucose [Mass/Vol] 106 mg/dL High 70-99 [facility] Comment on above: Performed By: #### L IVP, BMPX, LIP, CDP #### [facility] [address] [place], [place] [phone] Loan Officer: Ronn Arias MD Potassium [Moles/Vol] 4.6 mmol/L Normal 3.7-5.3 [facility] Comment on above: Performed By: #### L IVP, BMPX, LIP, CDP #### [facility] [address] [place], [place] [phone] Loan Officer: Ronn Arias MD Sodium [Moles/Vol] 141 mmol/L Normal 135-144 [facility] Comment on above: Performed By: #### L IVP, BMPX, LIP, CDP #### [facility] [address] [place] [address] [phone] Loan Officer: Ronn Arias MD Urea nitrogen [Mass/Vol] 63 mg/dL High 8-23 [facility] Comment on above: Performed By: #### L IVP, BMPX, LIP, CDP #### [facility] [place], [place] [phone] Loan Officer: Ronn Arias MD Basic Metabolic Panel w/ Ref luz to MGon 01-02-2022 Anion gap [Moles/Vol] 14 mmol/L 9 - 17 mmol/L [facility] Calcium [Mass/Vol] 7.2 mg/dL Low 8.6 - 10. 4 mg/dL [facility] Chloride [Moles/Vol] 108 mmol/L High 98 - 10 7 mmol/L [facility] CO2 [Moles/Vol] 20 mmol/L 20 - 31 mmol/L [facility] Creatinine [Mass/Vol] 3.51 mg/dL High 0.7 - 1.2 mg/dL [facility] GFR 21 mL/min Low 60 - PI NF mL/min [facility] GFR Non- 17 mL/min Low 60 - PINF mL/min [facility] GFR/1.73 sq M.predicted MDRD (S/P/Bld) [Vol rate/Area] [facility]OD[facility]COM[facility] Comment on above: Average GFR for 60-6 9 years old: 85 mL/min/1.73sq m Chronic Kidney Disease: <60 mL/min/1.73sq m Kidney failure: <15 mL/min/1.73sq m eGFR calculated using average adult body mass. Additional eGFR calculator available at: http://www.[employer]/multiple_crcl_2012.htm Glucose [Mass/Vol] 122 mg/dL High 70 - 99 mg/dL [facility] COD HOSPITALKickanotch mobile Interpretation and review of laboratory results Abnormal [facility] StudioSnaps Potassium [Moles/Vol] 5.0 mmol/L 3.7 - 5.3 mmol/L [facility] Sodium [Moles/Vol] 142 mmol/L 135 - 144 mmol/L [facility] StudioSnaps Urea nitrogen (BldV) [Mass/Vol] 55 mg/dL High 8 - 23 mg/dL [facility] Anion gap [Moles/Vol] 14 mmol/L 9 - 17 mmol/L [facility] [employer] Calcium [Mass/Vol] 7.2 mg/dL Low 8.6 - 10. 4 mg/dL [facility] Chloride [Moles/Vol] 109 mmol/L High 98 - 10 7 mmol/L [facility]ITALYESTODATE.COM StudioSnaps CO2 [Moles/Vol] 18 mmol/L Low 20 - 31 mmol/L [facility] LuckyLabsSUM[facility] Creatinine [Mass/Vol] 4.02 mg/dL High 0.7 - 1.2 mg/dL [facility] StudioSnaps GFR 18 mL/min Low 60 - PI NF mL/min [facility] Studio[employer]aps GFR Non- 15 mL/min Low 60 - PINF mL/min [facility] StudioSnaps GFR/1.73 sq M.predicted MDRD (S/P/Bld) [Vol rate/Area] [facility]IT[facility]anot[facility] mobile Comment on above: Average GFR for 60-6 9 years old: 85 mL/min/1.73sq m Chronic Kidney Disease: <60 mL/min/1.73sq m Kidney failure: <15 mL/min/1.73sq m eGFR calculated using average adult body mass. Additional eGFR calculator available at: http://www.Yoka/multiple_crcl_2011.htm Glucose [Mass/Vol] 106 mg/dL High 70 - 99 mg/dL [facility] Potassium [Moles/Vol] 4.6 mmol/L 3.7 - 5.3 mmol/L [facility] Sodium [Moles/Vol] 141 mmol/L 135 - 144 mmol/L [facility] Urea nitrogen (BldV) [Mass/Vol] 63 mg/dL High 8 - 23 mg/dL [facility] CBC with Auto Differentialon 01-02-2022 Absolute Eos # 0.12 [facility] Absolute Immature Granulocyte 0.00 [facility] Absolute Lymph # 0.37 Low [facility] Absolute Huron # 0.49 [facility] Basophils (Bld) [#/Vol] 0.00 10*3/uL [facility] Basophils/100 WBC (Bld) 0 % 0 - 2 % [facility] Eosinophils/100 WBC (Bld) 1 % 1 - 4 % [facility] Hematocrit (Bld) [Volume fraction] 30.4 % Low 40.7 - 50.3 % [facility] Hemoglobin (Bld) [Mass/Vol] 10.2 g/dL Low 13 - 17 g/dL [facility] Immature granulocytes/100 WBC (Bld) 0 % 0 [facility] Interpretation and review of laboratory results Abnormal [facility] Lymphocytes/100 WBC (Bld) 3 % Low 24 - 44 % [facility] MCH (RBC) [Entitic mass] 28.0 pg 25.2 - 33.5 pg [facility] MCHC (RBC) [Mass/Vol] 33.6 g/dL 28.4 - 34.8 g/dL [facility] MCV (RBC) [Entitic vol] 83.5 fL 82.6 - 102.9 fL [facility] Monocytes/100 WBC (Bld) 4 % 1 - 7 % [facility] Morphology Gordon (Bld) [Interp] Normal [facility] NRBC Automated 0.0 0.0 per 100 WBC [facility] Platelet distribution width (Bld) [Ratio] 14.4 % 11.8 - 14.4 % [facility] Platelet mean volume (Bld) [Entitic vol] 10.3 fL 8.1 - 13.5 fL [facility] Platelets (Bld) [#/Vol] 150 10*3/uL [facility] RBC (Bld) [#/Vol] 3.64 10*6/uL Low 4.21 - 5.77 m/uL [facility] Segmented neutrophils/100 WBC (Bld) 92 % High 36 - 66 % [facility] Segs Absolute 11.22 High [facility] WBC (Bld) [#/Vol] 12.2 10*3/uL High [facility] CBC with Diffon 01-02-2022 Abs. Basophil 0.00 k/uL Normal 0.0-0.2 [facility] Comment on above: Performed By: #### L ACDS #### [facility] [address] [place] [address] Loan Officer: Ronn Arias MD Abs.Imm.Granulocyte 0.00 k/uL Normal 0.00-0.30 [facility] Comment on above: Performed By: #### L ACDS #### [employer] [address] [place] [phone] Loan Officer: Ronn Arias MD Abs.Neutrophil (Seg) 11.22 k/uL High 1.8-7.7 [facility] Comment on above: Performed By: #### L ACDS #### [facility] [address] [place] [address] Loan Officer: Ronn Arias MD Basophils/100 WBC (Bld) 0 % Normal 0-2 [facility] Comment on above: Performed By: #### L ACDS #### [employer] [address] [place] [address] Loan Officer: Ronn Arias MD Eosinophils (Bld) [#/Vol] 0.12 10*3/uL Normal 0.0-0.4 [facility] Comment on above: Performed By: #### L ACDS #### [address] [address] Loan Officer: Ronn Arias MD Eosinophils/100 WBC (Bld) 1 % Normal 1-4 [facility] Comment on above: Performed By: #### L ACDS #### [address] [address] Loan Officer: Ronn Arias MD Immature granulocytes/100 WBC (Bld) 0 % Normal 0 [facility] Comment on above: Performed By: #### L ACDS #### [address] [address] Loan Officer: Ronn Arias MD Lymphocytes (Bld) [#/Vol] 0.37 10*3/uL Low 1.0-4.8 [facility] Comment on above: Performed By: #### L ACDS #### [address] [address] Loan Officer: Ronn Arias MD Lymphocytes/100 WBC (Bld) 3 % Low 24-44 [facility] Comment on above: Performed By: #### L ACDS #### [address] [address] Loan Officer: Ronn Arias MD Monocytes (Bld) [#/Vol] 0.49 10*3/uL Normal 0.1-0.8 [facility] Comment on above: Performed By: #### L ACDS #### [address] [address] Loan Officer: Ronn Arias MD Monocytes/100 WBC (Bld) 4 % Normal 1-7 [facility] Comment on above: Performed By: #### L ACDS #### [address] [address] Loan Officer: Ronn Arias MD Morphology Gordon (Bld) [Interp] Normal Normal [facility] Comment on above: Performed By: #### L ACDS #### [address] [address] Loan Officer: Ronn Arias MD Neutrophil (Seg) 92 % High 36-66 [facility] Comment on above: Performed By: #### L ACDS #### [address] [address] Loan Officer: Ronn Arias MD Erythrocyte distribution width (RBC) [Ratio] 14.4 % Normal 11.8-14.4 [facility] Comment on above: Performed By: #### L ACDS #### [address] [address] Loan Officer: Ronn Arias MD Hematocrit (Bld) [Volume fraction] 30.4 % Low 40.7-50.3 [facility] Comment on above: Performed By: #### L ACDS #### [address] [address] Loan Officer: Ronn Arias MD Hemoglobin (Bld) [Mass/Vol] 10.2 g/dL Low 13.0-17.0 [facility] Comment on above: Performed By: #### L ACDS #### [address] [address] Loan Officer: Ronn Arias MD MCH (RBC) [Entitic mass] 28.0 pg Normal 25.2-33.5 [facility] Comment on above: Performed By: #### L ACDS #### [address] [address] Loan Officer: Ronn Arias MD MCHC (RBC) [Mass/Vol] 33.6 g/dL Normal 28.4-34.8 [facility] Comment on above: Performed By: #### L ACDS #### [address] [address] Loan Officer: Ronn Arias MD MCV (RBC) [Entitic vol] 83.5 fL Normal 82.6-102.9 [facility] Comment on above: Performed By: #### L ACDS #### [address] [address] Loan Officer: Ronn Arias MD NRBC Automated 0.0 per 100 WBC Normal 0.0 [facility] Comment on above: Performed By: #### L ACDS #### [address] [address] Loan Officer: Ronn Arias MD Platelet mean volume (Bld) [Entitic vol] 10.3 fL Normal 8.1-13.5 [facility] Comment on above: Performed By: #### L ACDS #### [address] [address] Loan Officer: Ronn Arias MD Platelets (Bld) [#/Vol] 150 10*3/uL Normal 138-453 [facility] Comment on above: Performed By: #### L ACDS #### [address] [address] Loan Officer: Ronn Arias MD RBC (Bld) [#/Vol] 3.64 10*6/uL Low 4.21-5.77 [facility] Comment on above: Performed By: #### L ACDS #### [address] [address] Loan Officer: Ronn Arias MD WBC (Bld) [#/Vol] 12.2 10*3/uL High 3.5-11.3 [facility] Comment on above: Performed By: #### L ACDS #### [employer] [facility] [address] [place] [address] Loan Officer: Ronn Arias MD Cult,Urineon 01-02-2022 Cult,Urine Specimen Description .URINE Culture NO GROWTH Report Status FINAL 01/02/2022 Normal [facility] Comment on above: Performed By: #### U RNA, URTPRT, UMICAO, UEOS, UA #### [employer] [facility] [address] [place], [place] [phone] Loan Officer: Ronn Arias MD Culture, Urineon 01-02-2022 Bacteria identified Cx Nom (U) NO GROWTH [facility] StudioSnaps Specimen Description .URINE [facility] StudioSnaps Hepatic Function Panelon Albumin [Mass/Vol] 2.9 g/dL Low 3.5 - 5.2 g/dL [facility] StudioSnaps Albumin/Globulin [Mass ratio] 0.9 {ratio} Low 1 - 2.5 [facility] ALP (Bld) [Catalytic activity/Vol] 96 U/L 40 - 129 U/L [facility] ALT [Catalytic activity/Vol] 123 U/L High 5 - 41 U/L [facility] AST [Catalytic activity/Vol] 50 U/L High NINF - 40 U/L [facility] Bilirubin [Mass/Vol] 1.8 mg/dL High 0.3 - 1 .2 mg/dL [facility] [employer]Snaps Bilirubin, Indirect 0.7 mg/dL 0 - 1 mg/dL [facility] [employer] Bilirubin.indirect [Mass/Vol] 1.1 mg/dL High NINF - 0.31 mg/dL [facility] StudioSnaps Free PSA/Total PSA [Mass fraction] 6.1 g/dL Low 6.4 - 8.3 g/dL [facility]IT[facility]anot[facility] mobile Lactate, Sepsison 01-02-2022 Lactic Acid, Sepsis, Whole Blood 1.2 mmol/L 0.5 - 1.9 mmol/L [facility] Lactic Acid,Sep Wbld 1.3 mmol/L Normal 0.5-1.9 [facility] Comment on above: Performed By: #### U RNA, URTPRT, UMICAO, UEOS, UA #### [facility] [address] [place] [phone] Loan Officer: Ronn Arias MD Lactic Acid, Sepsis, Whole Blood 1.3 mmol/L 0.5 - 1.9 mmol/L [facility] Lactic Acid,Sep Wbld 1.0 mmol/L Normal 0.5-1.9 [facility] Comment on above: Performed By: #### U RNA, URTPRT, UMICAO, UEOS, UA #### [facility] [address] [place] [phone] Loan Officer: Ronn Arias MD Lactic Acid, Sepsis, Whole Blood 1.0 mmol/L 0.5 - 1.9 mmol/L [facility] Lactic Acid,Sep Wbld 0.9 mmol/L Normal 0.5-1.9 [facility] Comment on above: Performed By: #### U RNA, URTPRT, UMICAO, UEOS, UA #### [facility] [address] [place] [phone] Loan Officer: Ronn Arias MD Lactic Acid, Sepsis, Whole Blood 0.9 mmol/L 0.5 - 1.9 mmol/L [facility] Lipaseon 01-02-2022 Lipase [Catalytic activity/Vol] 1280 U/L High 13-60 [facility] Comment on above: Performed By: #### L IVP, BMPX, LIP, CDP #### [facility] [address] [place] [phone] Loan Officer: Ronn Arias MD Interpretation and review of laboratory results Abnormal [facility] Lipase [Catalytic activity/Vol] 1280 U/L High 13 - 60 U/L [facility] Liver Profileon 01-02-2022 Albumin [Mass/Vol] 2.9 g/dL Low 3.5-5.2 [facility] Comment on above: Performed By: #### L IVP, BMPX, LIP, CDP #### [employer] [address] [place] [phone] Loan Officer: Ronn Arias MD Albumin/Glob Ratio 0.9 Low 1.0-2.5 [facility] Comment on above: Performed By: #### L IVP, BMPX, LIP, CDP #### [employer] [facility] [address] [place] [phone] Loan Officer: Ronn Arias MD Alkaline Phos 96 U/L Normal 40-129 [facility] Comment on above: Performed By: #### L IVP, BMPX, LIP, CDP #### [employer] [address] [place] [phone] Loan Officer: Ronn Arias MD ALT [Catalytic activity/Vol] 123 U/L High 5-41 [facility] Comment on above: Performed By: #### L IVP, BMPX, LIP, CDP #### [employer] [address] [place] [phone] Loan Officer: Ronn Arias MD AST [Catalytic activity/Vol] 50 U/L High <40 [facility] Comment on above: Performed By: #### L IVP, BMPX, LIP, CDP #### [employer] [facility] [address] [place] [phone] Loan Officer: Ronn Arias MD Bilirubin [Mass/Vol] 1.8 mg/dL High 0.3-1.2 [facility] Comment on above: Performed By: #### L IVP, BMPX, LIP, CDP #### [employer] [facility] [address] [place] [phone] Loan Officer: Ronn Arias MD Bilirubin, Indirect 0.7 mg/dL Normal 0.00-1.00 [facility] Comment on above: Performed By: #### L IVP, BMPX, LIP, CDP #### [facility] [address] [place] [address] Loan Officer: Ronn Arias MD Bilirubin.indirect [Mass/Vol] 1.1 mg/dL High <0.31 [facility] Comment on above: Performed By: #### L IVP, BMPX, LIP, CDP #### [facility] [place] [address] Loan Officer: Ronn Arias MD Protein [Mass/Vol] 6.1 g/dL Low 6.4-8.3 [facility] Comment on above: Performed By: #### L IVP, BMPX, LIP, CDP #### [employer] [facility] [place] [address] Loan Officer: Ronn Arias MD No Panel Informationon 01-02 Interpretation and review of laboratory results Abnormal [facility] Protein,Tot,[place] Uron 2021 Tot Prot. Conc. 59 mg/dL Normal [facility] Comment on above: Result Comment: No n ormal range established. Performed By: #### U RNA, URTPRT, UMICAO, UEOS, UA #### [facility] [place] [address] Loan Officer: Ronn Arias MD Surgical Pathologyon 022 Surgical Pathology (NOTE) -- Diagnosis -- Gallbladder: - Chronic cholecystitis. - Cholelithiasis. Beth Barahona M.D. Electronically Signed Out rdd01/03/2022 Clinical Information Pre-op Diagnosis: GALLSTONE PANCREATITIS Operative Findings: GALLBLADDER AND CONTENTS Operation Performed: LAPAROSCOPIC CHOLECYSTECTOMY Source of Specimen A: GALLBLADDER Gross Description YOLI AUDRITSH, GALLBLADDER AND CONTENTS 9.5 x 4.0 x [...] two black choleliths, each measuring 0.5 cm. 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 tm Microscopic Description Microscopic examination performed. SURGICAL PATHOLOGY CONSULTATION Patient Name: YOLI ANTUNEZ [facility] Rec: [id number] Path Number: [id number] [facility] [employer] [facility] ANATOMIC PATHOLOGY [address] [place] [address]. [place], [place] [address] Normal [facility] Comment on above: Performed By: #### L ACDS #### [facility] [address] [place] [phone] Loan Officer: Ronn Arias MD RENAL LIMITEDon RENAL LIMITED EXAMINATION: ULTRASOUND OF THE KIDNEYS [...] Naif Bean MD 01/02/22 Final result Normal [facility] Unremarkable renal ultrasound. No hydronephrosis. [facility] [...] differentiation. IMPRESSION: Unremarkable renal ultrasound. No hydronephrosis. [facility] Work Phone: Radiology Study observation (narrative) [employer] Phone: RENAL LIMITEDOrdered By: Naif Bean on 01-02-2022 [employer] Phone: Basic Metabolic Panelon 12-21 Anion gap [Moles/Vol] 14 mmol/L 9 - 17 mmol/L [facility] Calcium [Mass/Vol] 6.4 mg/dL Low 8.6 - 10. 4 mg/dL [facility] Chloride [Moles/Vol] 106 mmol/L 98 - 10 7 mmol/L [facility] CO2 [Moles/Vol] 19 mmol/L Low 20 - 31 mmol/L [facility] Creatinine [Mass/Vol] 3.73 mg/dL High 0.7 - 1.2 mg/dL [facility] Comment on above: ICTERIC SPECIMEN GFR 20 mL/min Low 60 - PI NF mL/min [facility] GFR Non- 16 mL/min Low 60 - PINF mL/min [facility] GFR/1.73 sq M.predicted MDRD (S/P/Bld) [Vol rate/Area] [facility] Comment on above: Average GFR for 60-6 9 years old: 85 mL/min/1.73sq m Chronic Kidney Disease: <60 mL/min/1.73sq m Kidney failure: <15 mL/min/1.73sq m eGFR calculated using average adult body mass. Additional eGFR calculator available at: http://www.Yoka/multiple_crcl_2012.htm Glucose [Mass/Vol] 114 mg/dL High 70 - 99 mg/dL [facility] Interpretation and review of laboratory results Abnormal [facility] Potassium [Moles/Vol] 4.4 mmol/L 3.7 - 5.3 mmol/L [facility] Sodium [Moles/Vol] 139 mmol/L 135 - 144 mmol/L [facility] Urea nitrogen (BldV) [Mass/Vol] 58 mg/dL High 8 - 23 mg/dL [facility] Basic Metabolic Profon 01-01 (cont.) Normal [facility] Comment on above: Result Comment: Aver age GFR for 60-69 years old: 85 mL/min/1.73sq m Chronic Kidney Disease: <60 mL/min/1.73sq m Kidney failure: <15 mL/min/1.73sq m eGFR calculated using average adult body mass. Additional eGFR calculator available at: http://www.Yoka/multiple_crcl_2012.htm Performed By: #### U RNA, URTPRT, UMICAO, UEOS, UA #### [address] [address] Loan Officer: Ronn Arias MD Anion gap [Moles/Vol] 14 mmol/L Normal 9-17 [facility] Comment on above: Performed By: #### U RNA, URTPRT, UMICAO, UEOS, UA #### [address] [address] Loan Officer: Ronn Arias MD Calcium [Mass/Vol] 6.4 mg/dL Low 8.6-10.4 [facility] Comment on above: Performed By: #### U RNA, URTPRT, UMICAO, UEOS, UA #### [address] [address] Loan Officer: Ronn Arias MD Chloride [Moles/Vol] 106 mmol/L Normal 98-107 [facility] Comment on above: Performed By: #### U RNA, URTPRT, UMICAO, UEOS, UA #### [address] [address] Loan Officer: Ronn Arias MD CO2 [Moles/Vol] 19 mmol/L Low 20-31 [facility] Comment on above: Performed By: #### U RNA, URTPRT, UMICAO, UEOS, UA #### [facility] [address] [place] [address] Loan Officer: Ronn Arias MD Creatinine [Mass/Vol] 3.73 mg/dL High 0.70-1.20 [facility] Comment on above: Result Comment: ICTE JAYDON SPECIMEN Performed By: #### U RNA, URTPRT, UMICAO, UEOS, UA #### [facility] [address] [place] [phone] Loan Officer: Ronn Arias MD GFR, Amer 20 mL/min Low >60 [facility] Comment on above: Performed By: #### U RNA, URTPRT, UMICAO, UEOS, UA #### [facility] [address] [place] [phone] Loan Officer: Ronn Arias MD GFR,non Amer 16 mL/min Low >60 [facility] Comment on above: Performed By: #### U RNA, URTPRT, UMICAO, UEOS, UA #### [facility] [address] [place] [phone] Loan Officer: Ronn Arias MD Glucose [Mass/Vol] 114 mg/dL High 70-99 [facility] Comment on above: Performed By: #### U RNA, URTPRT, UMICAO, UEOS, UA #### [facility] [address] [place] [phone] Loan Officer: Ronn Arias MD Potassium [Moles/Vol] 4.4 mmol/L Normal 3.7-5.3 [facility] Comment on above: Performed By: #### U RNA, URTPRT, UMICAO, UEOS, UA #### [facility] [address] [place] [phone] Loan Officer: Ronn Arias MD Sodium [Moles/Vol] 139 mmol/L Normal 135-144 [facility] Comment on above: Performed By: #### U RNA, URTPRT, UMICAO, UEOS, UA #### [facility] [address] [place] [phone] Loan Officer: Ronn Arias MD Urea nitrogen [Mass/Vol] 58 mg/dL High 8-23 [facility] Comment on above: Performed By: #### U RNA, URTPRT, UMICAO, UEOS, UA #### [facility] [address] [place] [phone] Loan Officer: Ronn Arias MD CBCon 01-01-2022 Erythrocyte distribution width (RBC) [Ratio] 14.5 % High 11.8-14.4 [facility] Comment on above: Performed By: #### U RNA, URTPRT, UMICAO, UEOS, UA #### [employer] [address] [place] [phone] Loan Officer: Ronn Arias MD Hematocrit (Bld) [Volume fraction] 30.0 % Low 40.7-50.3 [facility] Comment on above: Performed By: #### U RNA, URTPRT, UMICAO, UEOS, UA #### [facility] [address] [place] [phone] Loan Officer: Ronn Arias MD Hemoglobin (Bld) [Mass/Vol] 10.0 g/dL Low 13.0-17.0 [facility] Comment on above: Performed By: #### U RNA, URTPRT, UMICAO, UEOS, UA #### [facility] [address] [place] [phone] Loan Officer: Ronn Arias MD MCH (RBC) [Entitic mass] 28.2 pg Normal 25.2-33.5 [facility] Comment on above: Performed By: #### U RNA, URTPRT, UMICAO, UEOS, UA #### [facility] [address] [place] [phone] Loan Officer: Ronn Arias MD MCHC (RBC) [Mass/Vol] 33.3 g/dL Normal 28.4-34.8 [facility] Comment on above: Performed By: #### U RNA, URTPRT, UMICAO, UEOS, UA #### [employer] [address] [place] [phone] Loan Officer: Ronn Arias MD MCV (RBC) [Entitic vol] 84.7 fL Normal 82.6-102.9 [facility] Comment on above: Performed By: #### U RNA, URTPRT, UMICAO, UEOS, UA #### [address] [address] Loan Officer: Ronn Arias MD NRBC Automated 0.0 per 100 WBC Normal 0.0 [facility] Comment on above: Performed By: #### U RNA, URTPRT, UMICAO, UEOS, UA #### [address] [address] Loan Officer: Ronn Arias MD Platelet mean volume (Bld) [Entitic vol] 11.0 fL Normal 8.1-13.5 [facility] Comment on above: Performed By: #### U RNA, URTPRT, UMICAO, UEOS, UA #### [address] [address] Loan Officer: Ronn Arias MD Platelets (Bld) [#/Vol] 157 10*3/uL Normal 138-453 [facility] Comment on above: Performed By: #### U RNA, URTPRT, UMICAO, UEOS, UA #### [address] [address] Loan Officer: Ronn Arias MD RBC (Bld) [#/Vol] 3.54 10*6/uL Low 4.21-5.77 [facility] Comment on above: Performed By: #### U RNA, URTPRT, UMICAO, UEOS, UA #### [address] [phone] Loan Officer: Ronn Arias MD WBC (Bld) [#/Vol] 16.8 10*3/uL High 3.5-11.3 [facility] Comment on above: Performed By: #### U RNA, URTPRT, UMICAO, UEOS, UA #### [employer] [facility] [address] [place], [place] [phone] Loan Officer: Ronn Arias MD Hematocrit (Bld) [Volume fraction] 30.0 % Low 40.7 - 50.3 % [facility] Hemoglobin (Bld) [Mass/Vol] 10.0 g/dL Low 13 - 17 g/dL [facility] MCH (RBC) [Entitic mass] 28.2 pg 25.2 - 33.5 pg [facility] MCHC (RBC) [Mass/Vol] 33.3 g/dL 28.4 - 34.8 g/dL [facility] MCV (RBC) [Entitic vol] 84.7 fL 82.6 - 102.9 fL [facility] NRBC Automated 0.0 0.0 per 100 WBC [facility] Platelet distribution width (Bld) [Ratio] 14.5 % High 11.8 - 14.4 % [facility] Platelet mean volume (Bld) [Entitic vol] 11.0 fL 8.1 - 13.5 fL [facility] Platelets (Bld) [#/Vol] 157 10*3/uL [facility] RBC (Bld) [#/Vol] 3.54 10*6/uL Low 4.21 - 5.77 m/uL [facility] WBC (Bld) [#/Vol] 16.8 10*3/uL High [facility] Calcium, [employer]icon 01-01-2022 Calcium [Moles/Vol] 0.95 mmol/L Low 1.13-1.33 [facility] Comment on above: Performed By: #### U RNA, URTPRT, UMWIN ROCAOS, UA #### [employer] [address] [place] [address] Loan Officer: Ronn Arias MD Calcium, Ionizedon Calcium, Ionized 0.95 mmol/L Low 1.13 - 1.33 mmol/L [facility] Interpretation and review of laboratory results Abnormal [facility] Comp Metabolic Pr/rfx MGon 0 01-01-2022 Creatinine [Mass/Vol] 3.74 mg/dL High 0.70-1.20 [facility] Comment on above: Result Comment: ICTE JAYDON SPECIMEN Performed By: #### U RNA, URTPRT, UMICAO, UEOS, UA #### [employer] [address] [place] [address] [phone] Loan Officer: Ronn Arias MD GFR, Amer 20 mL/min Low >60 [facility] Comment on above: Performed By: #### U RNA, URTPRT, UMICAO, UEOS, UA #### [employer] [address] [place] [address] [phone] Loan Officer: Ronn Arias MD GFR,non Amer 16 mL/min Low >60 [facility] Comment on above: Performed By: #### U RNA, URTPRT, UMICAO, UEOS, UA #### [facility] [address] [place] [phone] Loan Officer: Ronn Arias MD (cont.) [facility] Comment on above: Result Comment: Aver age GFR for 60-69 years old: 85 mL/min/1.73sq m Chronic Kidney Disease: <60 mL/min/1.73sq m Kidney failure: <15 mL/min/1.73sq m eGFR calculated using average adult body mass. Additional eGFR calculator available at: http://www.[employer].Apieron/multiple_crcl_2012.htm Performed By: #### U RNA, URTPRT, UMICAO, UEOS, UA #### [employer] [address] [place] [address] [phone] Loan Officer: Ronn Arias MD Albumin [Mass/Vol] 3.2 g/dL Low 3.5-5.2 [facility] Comment on above: Performed By: #### U RNA, URTPRT, UMICAO, UEOS, UA #### [address] [phone] Loan Officer: Ronn Arias MD Albumin/Glob Ratio 1.2 Normal 1.0-2.5 [facility] Comment on above: Performed By: #### U RNA, URTPRT, UMICAO, UEOS, UA #### [address] [phone] Loan Officer: Ronn Arias MD Alkaline Phos 101 U/L Normal 40-129 [facility] Comment on above: Performed By: #### U RNA, URTPRT, UMICAO, UEOS, UA #### [address] [address] Loan Officer: Ronn Arias MD ALT [Catalytic activity/Vol] 185 U/L High 5-41 [facility] Comment on above: Performed By: #### U RNA, URTPRT, UMICAO, UEOS, UA #### [address] [address] Loan Officer: Ronn Arias MD Anion gap [Moles/Vol] 12 mmol/L Normal 9-17 [facility] Comment on above: Performed By: #### U RNA, URTPRT, UMICAO, UEOS, UA #### [address] [phone] Loan Officer: Ronn Arias MD AST [Catalytic activity/Vol] 103 U/L High <40 [facility] Comment on above: Performed By: #### U RNA, URTPRT, UMICAO, UEOS, UA #### [facility] [address] [place] [address] [phone] Loan Officer: Ronn Arias MD Bilirubin [Mass/Vol] 4.3 mg/dL High 0.3-1.2 [facility] Comment on above: Performed By: #### U RNA, URTPRT, UMICAO, UEOS, UA #### [facility] [address] [place] [address] [phone] Loan Officer: Ronn Arias MD Calcium [Mass/Vol] 6.5 mg/dL Low 8.6-10.4 [facility] Comment on above: Performed By: #### U RNA, URTPRT, UMICAO, UEOS, UA #### [facility] [address] [place] [phone] Loan Officer: Ronn Arias MD Chloride [Moles/Vol] 107 mmol/L Normal 98-107 [facility] Comment on above: Performed By: #### U RNA, URTPRT, UMICAO, UEOS, UA #### [facility] [address] [place] [address] [phone] Loan Officer: Ronn Arias MD CO2 [Moles/Vol] 19 mmol/L Low 20-31 [facility] Comment on above: Performed By: #### U RNA, URTPRT, UMICAO, UEOS, UA #### [facility] [address] [place] [address] [phone] Loan Officer: Ronn Arias MD Glucose [Mass/Vol] 109 mg/dL High 70-99 [facility] Comment on above: Performed By: #### U RNA, URTPRT, UMICAO, UEOS, UA #### [facility] [address] [place] [address] [phone] Loan Officer: Ronn Arias MD Potassium [Moles/Vol] 4.4 mmol/L Normal 3.7-5.3 [facility] Comment on above: Performed By: #### U RNA, URTPRT, UMICAO, UEOS, UA #### [facility] [address] [place] [phone] Loan Officer: Ronn Arias MD Protein [Mass/Vol] 5.8 g/dL Low 6.4-8.3 [facility] Comment on above: Performed By: #### U RNA, URTPRT, UMICAO, UEOS, UA #### [facility] [address] [place] [address] [phone] Loan Officer: Ronn Arias MD Sodium [Moles/Vol] 138 mmol/L Normal 135-144 [facility] Comment on above: Performed By: #### U RNA, URTPRT, UMICAO, UEOS, UA #### [facility] [address] [place] [address] [phone] Loan Officer: Ronn Arias MD Urea nitrogen [Mass/Vol] 59 mg/dL High 8-23 [facility] Comment on above: Performed By: #### U RNA, URTPRT, UMICAO, UEOS, UA #### [facility] [address] [place] [address] [phone] Loan Officer: Ronn Arias MD Creatinine [Mass/Vol] 3.86 mg/dL High 0.70-1.20 [facility] Comment on above: Result Comment: ICTE JAYDON SPECIMEN Performed By: #### U RNA, URTPRT, UMICAO, UEOS, UA #### [facility] [address] [place] [address] [phone] Loan Officer: Ronn Arias MD GFR, Amer 19 mL/min Low >60 [facility] Comment on above: Performed By: #### U RNA, URTPRT, UMICAO, UEOS, UA #### [facility] [address] [place] [address] [phone] Loan Officer: Ronn Arias MD GFR,non Amer 16 mL/min Low >60 [facility] Comment on above: Performed By: #### U RNA, URTPRT, UMICAO, UEOS, UA #### [facility] [address] [place] [address] [phone] Loan Officer: Ronn Arias MD (cont.) Normal [facility] Comment on above: Result Comment: Aver age GFR for 60-69 years old: 85 mL/min/1.73sq m Chronic Kidney Disease: <60 mL/min/1.73sq m Kidney failure: <15 mL/min/1.73sq m eGFR calculated using average adult body mass. Additional eGFR calculator available at: http://www.[employer]/multiple_crcl_2012.htm Performed By: #### U RNA, URTPRT, UMICAO, UEOS, UA #### [employer] [address] [place] [phone] Loan Officer: Ronn Arias MD Albumin [Mass/Vol] 3.0 g/dL Low 3.5-5.2 [facility] Comment on above: Performed By: #### U RNA, URTPRT, UMICAO, UEOS, UA #### [facility] [address] [place] [address] [phone] Loan Officer: Ronn Arias MD Albumin/Glob Ratio 1.2 Normal 1.0-2.5 [facility] Comment on above: Performed By: #### U RNA, URTPRT, UMICAO, UEOS, UA #### [employer] [address] [place] [address] [phone] Loan Officer: Ronn Arias MD Alkaline Phos 98 U/L Normal 40-129 [facility] Comment on above: Performed By: #### U RNA, URTPRT, UMICAO, UEOS, UA #### [employer] [facility] [place] [address] Loan Officer: Ronn Arias MD ALT [Catalytic activity/Vol] 191 U/L High 5-41 [facility] Comment on above: Performed By: #### U RNA, URTPRT, UMICAO, UEOS, UA #### [employer] [address] [place] [address] [phone] Loan Officer: Ronn Arias MD Anion gap [Moles/Vol] 13 mmol/L Normal 9-17 [facility] Comment on above: Performed By: #### U RNA, URTPRT, UMICAO, UEOS, UA #### [facility] [address] [place] [phone] Loan Officer: Ronn Arias MD AST [Catalytic activity/Vol] 112 U/L High <40 [facility] Comment on above: Performed By: #### U RNA, URTPRT, UMICAO, UEOS, UA #### [facility] [address] [place] [address] [phone] Loan Officer: Ronn Arias MD Bilirubin [Mass/Vol] 4.5 mg/dL High 0.3-1.2 [facility] Comment on above: Performed By: #### U RNA, URTPRT, UMICAO, UEOS, UA #### [facility] [address] [place] [address] [phone] Loan Officer: Ronn Arias MD Calcium [Mass/Vol] 6.5 mg/dL Low 8.6-10.4 [facility] Comment on above: Performed By: #### U RNA, URTPRT, UMICAO, UEOS, UA #### [facility] [address] [place] [phone] Loan Officer: Ronn Arias MD Chloride [Moles/Vol] 109 mmol/L High 98-107 [facility] Comment on above: Performed By: #### U RNA, URTPRT, UMICAO, UEOS, UA #### [facility] [address] [place] [phone] Loan Officer: Ronn Arias MD CO2 [Moles/Vol] 18 mmol/L Low 20-31 [facility] Comment on above: Performed By: #### U RNA, URTPRT, UMICAO, UEOS, UA #### [employer] [address] [place] [phone] Loan Officer: Ronn Arias MD Glucose [Mass/Vol] 106 mg/dL High 70-99 [facility] Comment on above: Performed By: #### U RNA, URTPRT, UMICAO, UEOS, UA #### [facility] [address] [place] [address] [phone] Loan Officer: Ronn Arias MD Potassium [Moles/Vol] 4.5 mmol/L Normal 3.7-5.3 [facility] Comment on above: Performed By: #### U RNA, URTPRT, UMICAO, UEOS, UA #### [facility] [address] [place] [address] [phone] Loan Officer: Ronn Arias MD Protein [Mass/Vol] 5.5 g/dL Low 6.4-8.3 [facility] Comment on above: Performed By: #### U RNA, URTPRT, UMICAO, UEOS, UA #### [employer] [facility] [address] [place] [phone] Loan Officer: Ronn Arias MD Sodium [Moles/Vol] 140 mmol/L Normal 135-144 [facility] Comment on above: Performed By: #### U RNA, URTPRT, UMICAO, UEOS, UA #### [employer] [address] [place] [address] [phone] Loan Officer: Ronn Arias MD Urea nitrogen [Mass/Vol] 59 mg/dL High 8-23 [facility] Comment on above: Performed By: #### U RNA, URTPRT, UMICAO, UEOS, UA #### [employer] [address] [place] [address] [phone] Loan Officer: Ronn Arias MD Comprehensive Metabolic Pane l w/ Reflex to MGon 01-01-2022 Albumin [Mass/Vol] 3.2 g/dL Low 3.5 - 5.2 g/dL [facility] Albumin/Globulin [Mass ratio] 1.2 {ratio} 1 - 2.5 [facility] ALP (Bld) [Catalytic activity/Vol] 101 U/L 40 - 129 U/L [facility] [employer] ALT [Catalytic activity/Vol] 185 U/L High 5 - 41 U/L [facility] [employer] Anion gap [Moles/Vol] 12 mmol/L 9 - 17 mmol/L [facility] [employer] AST [Catalytic activity/Vol] 103 U/L High NINF - 40 U/L [facility] Bilirubin [Mass/Vol] 4.3 mg/dL High 0.3 - 1 .2 mg/dL [facility] Calcium [Mass/Vol] 6.5 mg/dL Low 8.6 - 10. 4 mg/dL [facility] [employer] Chloride [Moles/Vol] 107 mmol/L 98 - 10 7 mmol/L [facility] CO2 [Moles/Vol] 19 mmol/L Low 20 - 31 mmol/L [facility] Creatinine [Mass/Vol] 3.74 mg/dL High 0.7 - 1.2 mg/dL [facility] Comment on above: ICTERIC SPECIMEN Free PSA/Total PSA [Mass fraction] 5.8 g/dL Low 6.4 - 8.3 g/dL [facility] GFR 20 mL/min Low 60 - PI NF mL/min [facility] GFR Non- 16 mL/min Low 60 - PINF mL/min [employer] [facility] GFR/1.73 sq M.predicted MDRD (S/P/Bld) [Vol rate/Area] [facility] Comment on above: Average GFR for 60-6 9 years old: 85 mL/min/1.73sq m Chronic Kidney Disease: <60 mL/min/1.73sq m Kidney failure: <15 mL/min/1.73sq m eGFR calculated using average adult body mass. Additional eGFR calculator available at: http://www.[employer].com/multiple_crcl_2012.htm Glucose [Mass/Vol] 109 mg/dL High 70 - 99 mg/dL [facility] Interpretation and review of laboratory results Abnormal [facility] Potassium [Moles/Vol] 4.4 mmol/L 3.7 - 5.3 mmol/L [facility] Sodium [Moles/Vol] 138 mmol/L 135 - 144 mmol/L [facility] Urea nitrogen (BldV) [Mass/Vol] 59 mg/dL High 8 - 23 mg/dL [facility] Albumin [Mass/Vol] 3 g/dL Low 3.5 - 5.2 g/dL [facility] Albumin/Globulin [Mass ratio] 1.2 {ratio} 1 - 2.5 [facility] ALP (Bld) [Catalytic activity/Vol] 98 U/L 40 - 129 U/L [facility] ALT [Catalytic activity/Vol] 191 U/L High 5 - 41 U/L [facility] Anion gap [Moles/Vol] 13 mmol/L 9 - 17 mmol/L [facility] AST [Catalytic activity/Vol] 112 U/L High NINF - 40 U/L [facility] Bilirubin [Mass/Vol] 4.5 mg/dL High 0.3 - 1 .2 mg/dL [facility] Calcium [Mass/Vol] 6.5 mg/dL Low 8.6 - 10. 4 mg/dL [facility] Chloride [Moles/Vol] 109 mmol/L High 98 - 10 7 mmol/L [facility] CO2 [Moles/Vol] 18 mmol/L Low 20 - 31 mmol/L [facility] Creatinine [Mass/Vol] 3.86 mg/dL High 0.7 - 1.2 mg/dL [facility] Comment on above: ICTERIC SPECIMEN Free PSA/Total PSA [Mass fraction] 5.5 g/dL Low 6.4 - 8.3 g/dL [facility] GFR 19 mL/min Low 60 - PI NF mL/min [facility] GFR Non- 16 mL/min Low 60 - PINF mL/min [facility] GFR/1.73 sq M.predicted MDRD (S/P/Bld) [Vol rate/Area] [facility] Comment on above: Average GFR for 60-6 9 years old: 85 mL/min/1.73sq m Chronic Kidney Disease: <60 mL/min/1.73sq m Kidney failure: <15 mL/min/1.73sq m eGFR calculated using average adult body mass. Additional eGFR calculator available at: http://www.[employer]/multiple_crcl_2012.htm Glucose [Mass/Vol] 106 mg/dL High 70 - 99 mg/dL [facility] Potassium [Moles/Vol] 4.5 mmol/L 3.7 - 5.3 mmol/L [facility] Sodium [Moles/Vol] 140 mmol/L 135 - 144 mmol/L [facility] Urea nitrogen (BldV) [Mass/Vol] 59 mg/dL High 8 - 23 mg/dL [facility] [employer] Differentialon 01-01-2022 Abs. Basophil 0.03 k/uL Normal 0.00-0.20 [facility] Comment on above: Performed By: #### U RNA, URTPRT, UMICAO, UEOS, UA #### [employer] [address] [place] [address] Loan Officer: Ronn Arias MD Abs.Imm.Granulocyte 0.10 k/uL Normal 0.00-0.30 [facility] Comment on above: Performed By: #### U RNA, URTPRT, UMICAO, UEOS, UA #### [employer] [address] [place] [address] Loan Officer: Ronn Arias MD Abs.Neutrophil (Seg) 14.48 k/uL High 1.50-8.10 [facility] Comment on above: Performed By: #### U RNA, URTPRT, UMICAO, UEOS, UA #### [employer] [address] [place], [place] [phone] Loan Officer: Ronn Arias MD Basophils/100 WBC (Bld) 0 % Normal 0-2 [facility] Comment on above: Performed By: #### U RNA, URTPRT, UMICAO, UEOS, UA #### [facility] [address] [place] [address] Loan Officer: Ronn Arias MD Eosinophils (Bld) [#/Vol] 0.06 10*3/uL Normal 0.00-0.44 [facility] Comment on above: Performed By: #### U RNA, URTPRT, UMICAO, UEOS, UA #### [facility] [address] [place] [address] Loan Officer: Ronn Arias MD Eosinophils/100 WBC (Bld) 0 % Low 1-4 [facility] Comment on above: Performed By: #### U RNA, URTPRT, UMICAO, UEOS, UA #### [facility] [address] [place] [address] Loan Officer: Ronn Arias MD Immature granulocytes/100 WBC (Bld) 1 % High 0 [facility] Comment on above: Performed By: #### U RNA, URTPRT, UMICAO, UEOS, UA #### [facility] [address] [place] [address] Loan Officer: Ronn Arias MD Lymphocytes (Bld) [#/Vol] 0.87 10*3/uL Low 1.10-3.70 [facility] Comment on above: Performed By: #### U RNA, URTPRT, UMICAO, UEOS, UA #### [facility] [address] [place] [address] Loan Officer: Ronn Arias MD Lymphocytes/100 WBC (Bld) 5 % Low 24-43 [facility] Comment on above: Performed By: #### U RNA, URTPRT, UMICAO, UEOS, UA #### [facility] [address] [place] [address] Loan Officer: Ronn Arias MD Monocytes (Bld) [#/Vol] 1.28 10*3/uL High 0.10-1.20 [facility] Comment on above: Performed By: #### U RNA, URTPRT, UMICAO, UEOS, UA #### [facility] [address] [place] [address] Loan Officer: Ronn Arias MD Monocytes/100 WBC (Bld) 8 % Normal 3-12 [facility] Comment on above: Performed By: #### U RNA, URTPRT, UMICAO, UEOS, UA #### [facility] [address] [place] [address] [phone] Loan Officer: Ronn Arias MD Neutrophil (Seg) 86 % High 36-65 [facility] Comment on above: Performed By: #### U RNA, URTPRT, UMICAO, UEOS, UA #### [facility] [place] [address] Loan Officer: Ronn Arias MD RBC morphology finding Nom (Bld) ANISOCYTOSIS PRESENT Normal [facility] Comment on above: Performed By: #### U RNA, URTPRT, UMICAO, UEOS, UA #### [facility] [address] [place] [address] Loan Officer: Ronn Arias MD Absolute Eos # 0.06 [facility] Absolute Immature Granulocyte 0.10 [facility] Absolute Lymph # 0.87 Low [facility] Absolute Huron # 1.28 High [facility] Basophils (Bld) [#/Vol] 0.03 10*3/uL [facility] Basophils/100 WBC (Bld) 0 % 0 - 2 % [facility] Eosinophils/100 WBC (Bld) 0 % Low 1 - 4 % [facility] Immature granulocytes/100 WBC (Bld) 1 % High 0 [facility] Lymphocytes/100 WBC (Bld) 5 % Low 24 - 43 % [facility] Monocytes/100 WBC (Bld) 8 % 3 - 12 % [facility] RBC (Bld) [#/Vol] ANISOCYTOSIS PRESENT [facility] Segmented neutrophils/100 WBC (Bld) 86 % High 36 - 65 % [facility] Segs Absolute 14.48 High [facility] Hemoglobin A1Con 01-01-2022 Glucose [Mass/Vol] 117 mg/dL Normal [facility] Comment on above: Result Comment: The ADA and AACC recommend providing the estimated average glucose result to permit better patient understanding of their HBA1c result. Performed By: #### U RNA, URTPRT, UMICAO, UEOS, UA #### [facility] [address] [place], [place] [phone] Loan Officer: Ronn Arias MD HbA1c (Bld) [Mass fraction] 5.7 % Normal 4.0-6.0 [facility] Comment on above: Performed By: #### U RNA, URTPRT, UMICAO, UEOS, UA #### [facility] [address] [place] [address] Loan Officer: Ronn Arias MD Glucose [Mass/Vol] 117 mg/dL [facility] Comment on above: The ADA and AACC rec ommend providing the estimated average glucose result to permit better patient understanding of their HBA1c result. HbA1c (Bld) [Mass fraction] 5.7 % 4 - 6 % [facility] Hepatic Function Panelon Albumin [Mass/Vol] 3.2 g/dL Low 3.5 - 5.2 g/dL [facility] Albumin/Globulin [Mass ratio] 1.3 {ratio} 1 - 2.5 [facility] ALP (Bld) [Catalytic activity/Vol] 98 U/L 40 - 129 U/L [facility] ALT [Catalytic activity/Vol] 202 U/L High 5 - 41 U/L [facility] AST [Catalytic activity/Vol] 117 U/L High NINF - 40 U/L [facility] Bilirubin [Mass/Vol] 4.4 mg/dL High 0.3 - 1 .2 mg/dL [facility] Bilirubin, Indirect 0.3 mg/dL 0 - 1 mg/dL [facility] Bilirubin.indirect [Mass/Vol] 4.1 mg/dL High NINF - 0.31 mg/dL [facility] Free PSA/Total PSA [Mass fraction] 5.6 g/dL Low 6.4 - 8.3 g/dL [facility] Interpretation and review of laboratory results Abnormal [facility] Lactate Dehydrogenaseon 12-21 LDH [Catalytic activity/Vol] 214 U/L Normal 135-225 [facility] Comment on above: Performed By: #### U RNA, URTPRT, UMICAO, UEOS, UA #### [employer] [address] [place] [phone] Loan Officer: Ronn Arias MD LD 214 U/L 135 - 225 U/L [facility] Lactate, Sepsison 01-01-2022 Lactic Acid,Sep Wbld 1.2 mmol/L Normal 0.5-1.9 [facility] Comment on above: Performed By: #### U RNA, URTPRT, UMICAO, UEOS, UA #### [employer] [address] [place] [phone] Loan Officer: Ronn Arias MD Lactic Acid, Sepsis, Whole Blood 1.2 mmol/L 0.5 - 1.9 mmol/L [facility] Lactic Acid,Sep Wbld 1.3 mmol/L Normal 0.5-1.9 [facility] Comment on above: Performed By: #### U RNA, URTPRT, UMICAO, UEOS, UA #### [employer] [address] [place] [phone] Loan Officer: Ronn Arias MD Lactic Acid, Sepsis, Whole Blood 1.3 mmol/L 0.5 - 1.9 mmol/L [facility] Lactic Acid,Sep Wbld 0.9 mmol/L Normal 0.5-1.9 [facility] Comment on above: Performed By: #### U RNA, URTPRT, UMICAO, UEOS, UA #### [facility] [address] [place] [address] [phone] Loan Officer: Ronn Arias MD Lactic Acid, Sepsis, Whole Blood 0.9 mmol/L 0.5 - 1.9 mmol/L [facility] Lactic Acid,Sep Wbld 1.3 mmol/L Normal 0.5-1.9 [facility] Comment on above: Performed By: #### U RNA, URTPRT, UMICAO, UEOS, UA #### [facility] [address] [place] [phone] Loan Officer: Ronn Arias MD Lactic Acid, Sepsis, Whole Blood 1.3 mmol/L 0.5 - 1.9 mmol/L [facility] Lipaseon 01-01-2022 Lipase [Catalytic activity/Vol] 1918 U/L High 13-60 [facility] Comment on above: Performed By: #### U RNA, URTPRT, UMICAO, UEOS, UA #### [facility] [address] [place] [phone] Loan Officer: Ronn Arias MD Lipase [Catalytic activity/Vol] 1918 U/L High 13 - 60 U/L [facility] Lipid Panelon 01-01-2022 Cholesterol [Mass/Vol] 103 mg/dL NINF - 200 mg/dL [facility] Comment on above: Cholesterol Guidelines: <200 Desirable 200-240 Borderline >240 Undesirable Cholesterol in HDL [Mass/Vol] 46 mg/dL 40 - PINF mg/dL [facility] Comment on above: HDL Guidelines: <40 Undesirable 40-59 Borderline >59 Desirable Cholesterol in LDL [Mass/Vol] 46 mg/dL 0 - 130 mg/dL [facility] Comment on above: LDL Guidelines: <100 Desirable 100-129 Near to/above Desirable 130-159 Borderline >159 Undesirable Direct (measured) LDL and calculated LDL are not interchangeable tests. Cholesterol.total/Ch olesterol in HDL [Mass ratio] 2.2 {ratio} NINF - 5 [facility] Triglyceride [Mass/Vol] 53 mg/dL NINF - 150 mg/dL [facility] [employer] Comment on above: Triglyceride Guidelines: <150 Desirable 150-199 Borderline 200-499 High >499 Very high Based on AHA Guidelines for fasting triglyceride, January 2012. [facility] [employer] Lipid Profileon 01-01-2022 Cholesterol [Mass/Vol] 103 mg/dL Normal <200 [facility] Comment on above: Result Comment: Cholesterol Guidelines: <200 Desirable 200-240 Borderline >240 Undesirable Performed By: #### U RNA, URTPRT, UMICAO, UEOS, UA #### [employer] [address] [place] [address] [phone] Loan Officer: Ronn Arias MD Cholesterol in HDL [Mass/Vol] 46 mg/dL Normal >40 [facility] Comment on above: Result Comment: HDL Guidelines: <40 Undesirable 40-59 Borderline >59 Desirable Performed By: #### U RNA, URTPRT, UMICAO, UEOS, UA #### [employer] [address] [place] [address] [phone] Loan Officer: Ronn Arias MD Cholesterol in LDL [Mass/Vol] 46 mg/dL Normal 0-130 [facility] Comment on above: Result Comment: LDL Guidelines: <100 Desirable 100-129 Near to/above Desirable 130-159 Borderline >159 Undesirable Direct (measured) LDL and calculated LDL are not interchangeable tests. Performed By: #### U RNA, URTPRT, UMICAO, UEOS, UA #### [employer] [address] [place] [address] [phone] Loan Officer: Ronn Arias MD Cholesterol.total/Ch olesterol in HDL [Mass ratio] 2.2 {ratio} Normal <5 [facility] Comment on above: Performed By: #### U RNA, URTPRT, UMICAO, UEOS, UA #### [facility] [address] [place] [address] [phone] Loan Officer: Ronn Arias MD Triglyceride [Mass/Vol] 53 mg/dL Normal <150 [facility] Comment on above: Result Comment: Triglyceride Guidelines: <150 Desirable 150-199 Borderline 200-499 High >499 Very high Based on AHA Guidelines for fasting triglyceride, January 2012. Performed By: #### U RNA, URTPRT, UMICAO, UEOS, UA #### [facility] [address] [place] [address] [phone] Loan Officer: Ronn Arias MD Liver Profileon 01-01-2022 Albumin [Mass/Vol] 3.2 g/dL Low 3.5-5.2 [facility] Comment on above: Performed By: #### U RNA, URTPRT, UMICAO, UEOS, UA #### [facility] [address] [place] [address] [phone] Loan Officer: Ronn Arias MD Albumin/Glob Ratio 1.3 Normal 1.0-2.5 [facility] Comment on above: Performed By: #### U RNA, URTPRT, UMICAO, UEOS, UA #### [facility] [address] [place] [address] [phone] Loan Officer: Ronn Arias MD Alkaline Phos 98 U/L Normal 40-129 [facility] Comment on above: Performed By: #### U RNA, URTPRT, UMICAO, UEOS, UA #### [facility] [address] [place] [address] [phone] Loan Officer: Ronn Arias MD ALT [Catalytic activity/Vol] 202 U/L High 5-41 [facility] Comment on above: Performed By: #### U RNA, URTPRT, UMICAO, UEOS, UA #### [facility] [address] [place] [address] [phone] Loan Officer: Ronn Arias MD AST [Catalytic activity/Vol] 117 U/L High <40 [facility] Comment on above: Performed By: #### U RNA, URTPRT, UMICAO, UEOS, UA #### [facility] [address] [place] [address] [phone] Loan Officer: Ronn Arias MD Bilirubin [Mass/Vol] 4.4 mg/dL High 0.3-1.2 [facility] Comment on above: Performed By: #### U RNA, URTPRT, UMICAO, UEOS, UA #### [facility] [address] [place] [address] 13238 Loan Officer: Ronn Arias MD Bilirubin, Indirect 0.3 mg/dL Normal 0.00-1.00 [facility] Comment on above: Performed By: #### U RNA, URTPRT, UMICAO, UEOS, UA #### [facility] [address] [place] [address] [phone] Loan Officer: Ronn Arias MD Bilirubin.indirect [Mass/Vol] 4.1 mg/dL High <0.31 [facility] Comment on above: Performed By: #### U RNA, URTPRT, UMICAO, UEOS, UA #### [facility] [address] [place] [address] [phone] Loan Officer: Ronn Arias MD Protein [Mass/Vol] 5.6 g/dL Low 6.4-8.3 [facility] Comment on above: Performed By: #### U RNA, URTPRT, UMICAO, UEOS, UA #### [facility] [address] [place] [address] [phone] Loan Officer: Ronn Arias MD MRI ABDOMEN WO CONTRAST [...] Aliya Salgado MD 01/01/22 Final result Normal [facility] 1. Christen pancreatic inflammation suggestive of acute pancreatitis. No pancreatic duct dilatation. 2. Cholelithiasis without evidence for acute cholecystitis, biliary dilatation or choledocholithiasis. [facility] RIS CONSOLIDATED EXAMINATION: MRI OF THE ABDOMEN [...] findings do not require dedicated imaging follow-up. [facility] RIS Aliya Mahajan MD - 01/01/2022 EXAMINATION: [...] not require dedicated imaging follow-up. IMPRESSION: 1. Chrisetn pancreatic inflammation suggestive of acute pancreatitis. No pancreatic duct dilatation. 2. Cholelithiasis without evidence for acute cholecystitis, biliary dilatation or choledocholithiasis. [facility] Work Phone: Radiology Study observation (narrative) [employer] Phone: MRI ABDOMEN WO CONTRAST MRCP Ordered By: Aliya Salgado on 01-01-2022 [employer] Phone: Magnesiumon 01-01-2022 Magnesium [Mass/Vol] 1.7 mg/dL Normal 1.6-2.6 [facility] Comment on above: Performed By: #### U RNA, URTPRT, UMCATYO, UEOS, UA #### [employer] [address] [place] [address] [phone] Loan Officer: Ronn Arias MD Magnesium [Mass/Vol] 1.7 mg/dL 1.6 - 2 .6 mg/dL [facility] [employer] Magnesium [Mass/Vol] 1.7 mg/dL Normal 1.6-2.6 [facility] Comment on above: Performed By: #### U RNA, URTPRT, UMICAO, UEOS, UA #### [employer] [address] [place] [address] Loan Officer: Ronn Arias MD Magnesium [Mass/Vol] 1.7 mg/dL 1.6 - 2 .6 mg/dL [facility] No Panel Informationon 01-01 Interpretation and review of laboratory results Abnormal [facility] Interpretation and review of laboratory results Abnormal [facility] PTon 01-01-2022 INR Coag (PPP) [Relative time] 1.2 {INR} Normal [facility] Comment on above: Result Comment: Therapeutic Range: Moderate Anticoagulant Intensity: INR = 2.0-3.0 High Anticoagulant Intensity: INR = 2.5-3.5 Performed By: #### U RNA, URTPRT, UMICAO, UEOS, UA #### [employer] [address] [place], [place] [phone] Loan Officer: Ronn Arias MD PT Coag (PPP) [Time] 12.7 s High 9.1-12.3 [facility] Comment on above: Performed By: #### U RNA, URTPRT, UMICAO, UEOS, UA #### [facility] [address] [place], [place] [phone] Loan Officer: Ronn Arias MD Phosphoruson 01-01-2022 Phosphate [Mass/Vol] 3.0 mg/dL 2.5 - 4 .5 mg/dL [facility] Phosphorus, Inorg.on 022 Phosphorus, Inorg. 3.0 mg/dL Normal 2.5-4.5 [facility] Comment on above: Performed By: #### U RNA, URTPRT, UMICAO, UEOS, UA #### [employer] [facility] [place], [place] [phone] Loan Officer: Ronn Arias MD Procalcitoninon 01-01-2022 Procalcitonin 67.66 ng/mL High <0.09 [facility] Comment on above: Result Comment: Suspected [...] entered into the Change in Procalcitonin Calculator (www.cwtjdv-ufm-cojuvzipbi.Apieron) to determine the patient's Mortality Risk Prognosis In healthy neonates, plasma Procalcitonin (PCT) concentrations increase gradually after , reaching peak values at about 24 hours of age then decrease to normal values below 0.5 ng/mL by 48-72 hours of age. Performed By: #### U RNA, URTPRT, UMICAO, UEOS, UA #### [employer] [address] [place] [address] Loan Officer: Ronn Arias MD Interpretation and review of laboratory results Abnormal [facility] Procalcitonin 67.66 ng/mL High NINF - 0.09 ng/mL [facility] Comment on above: Suspected Sepsis: <0.50 [...] entered into the Change in Procalcitonin Calculator (wwwSyncbakvbzxqs-qwu-lvdabjbqli.Apieron) to determine the patient's Mortality Risk Prognosis In healthy neonates, plasma Procalcitonin (PCT) concentrations increase gradually after , reaching peak values at about 24 hours of age then decrease to normal values below 0.5 ng/mL by 48-72 hours of age. Protein, urine, randomon Protein (U) [Mass/Vol] 59 mg/dL [facility] Comment on above: No normal range esta blished. [facility] Protime-INRon 01-01-2022 INR Coag (Bld) [Relative time] 1.2 {INR} [facility] Comment on above: Therapeutic Range: Moderate Anticoagulant Intensity: INR = 2.0-3.0 High Anticoagulant Intensity: INR = 2.5-3.5 Interpretation and review of laboratory results Abnormal [facility] PT Coag (PPP) [Time] 12.7 s High [facility] Sodium, Random Uron 01-02-20 Sodium (U) [Moles/Vol] 37 mmol/L Normal [facility] Comment on above: Result Comment: No n ormal range established. Performed By: #### U RNA, URTPRT, UMCATYO UEOS, UA #### [employer] [address] [place] [phone] Loan Officer: Ronn Arias MD Sodium, urine, randomon 12-21 Sodium (U) [Moles/Vol] 37 mmol/L [facility] Comment on above: No normal range esta blished. [facility] Triglycerideon 01-01-2022 Triglyceride [Mass/Vol] 58 mg/dL NINF - 150 mg/dL [facility] Comment on above: Triglyceride Guidelines: <150 Desirable 150-199 Borderline 200-499 High >499 Very high Based on AHA Guidelines for fasting triglyceride, January 2012. Triglycerideson 01-01-2022 Triglyceride [Mass/Vol] 58 mg/dL Normal <150 [facility] Comment on above: Result Comment: Triglyceride Guidelines: <150 Desirable 150-199 Borderline 200-499 High >499 Very high Based on AHA Guidelines for fasting triglyceride, January 2012. Performed By: #### U RNA, URTPRT, UMICAO, UEOS, UA #### [employer] [address] [place], [place] [phone] Loan Officer: Ronn Arias MD Troponinon 01-01-2022 Troponin, High Sens 19 ng/L Normal 0-22 [facility] Comment on above: Result Comment: High Sensitivity Troponin values cannot be compared with other Troponin methodologies. Patients with high levels of Biotin oral intake (i.e >5mg/day) may have falsely decreased Troponin levels. Samples collected within 8 hours of biotin intake may require additional information for diagnosis. Performed By: #### U RNA, URTPRT, UMICAO, UEOS, UA #### [facility] [address] [place] [phone] Loan Officer: Ronn Arias MD Troponin, High Sensitivity 19 ng/L 0 - 22 ng/L [facility] Comment on above: High Sensitivity Troponin values cannot be compared with other Troponin methodologies. Patients with high levels of Biotin oral intake (i.e >5mg/day) may have falsely decreased Troponin levels. Samples collected within 8 hours of biotin intake may require additional information for diagnosis. [facility] Troponin, High Sens 17 ng/L Normal 0-22 [facility] Comment on above: Result Comment: High Sensitivity Troponin values cannot be compared with other Troponin methodologies. Patients with high levels of Biotin oral intake (i.e >5mg/day) may have falsely decreased Troponin levels. Samples collected within 8 hours of biotin intake may require additional information for diagnosis. Performed By: #### U RNA, URTPRT, UMICAO, UEOS, UA #### [employer] [address] [place], [place] [phone] Loan Officer: Ronn Arias MD Troponin, High Sensitivity 17 ng/L 0 - 22 ng/L [facility] Comment on above: High Sensitivity Troponin values cannot be compared with other Troponin methodologies. Patients with high levels of Biotin oral intake (i.e >5mg/day) may have falsely decreased Troponin levels. Samples collected within 8 hours of biotin intake may require additional information for diagnosis. [facility] Troponin, High Sens 18 ng/L Normal 0-22 [facility] Comment on above: Result Comment: High Sensitivity Troponin values cannot be compared with other Troponin methodologies. Patients with high levels of Biotin oral intake (i.e >5mg/day) may have falsely decreased Troponin levels. Samples collected within 8 hours of biotin intake may require additional information for diagnosis. Performed By: #### U RNA, URTPRT, UMICAO, UEOS, UA #### [employer] [facility] [address] [place], [place] [phone] Loan Officer: Ronn Arias MD Troponin, High Sens 18 ng/L Normal 0-22 [facility] Comment on above: Result Comment: High Sensitivity Troponin values cannot be compared with other Troponin methodologies. Patients with high levels of Biotin oral intake (i.e >5mg/day) may have falsely decreased Troponin levels. Samples collected within 8 hours of biotin intake may require additional information for diagnosis. Performed By: #### U RNA, URTPRT, UMICAO, UEOS, UA #### [employer] [address] [place] [phone] Loan Officer: Ronn Arias MD Troponin, High Sensitivity 18 ng/L 0 - 22 ng/L [facility] Comment on above: High Sensitivity Troponin values cannot be compared with other Troponin methodologies. Patients with high levels of Biotin oral intake (i.e >5mg/day) may have falsely decreased Troponin levels. Samples collected within 8 hours of biotin intake may require additional information for diagnosis. [facility] [employer] Troponin, High Sensitivity 18 ng/L 0 - 22 ng/L [facility] [employer] Comment on above: High Sensitivity Troponin values cannot be compared with other Troponin methodologies. Patients with high levels of Biotin oral intake (i.e >5mg/day) may have falsely decreased Troponin levels. Samples collected within 8 hours of biotin intake may require additional information for diagnosis. Troponin, High Sens 18 ng/L Normal 0-22 [facility] Comment on above: Result Comment: High Sensitivity Troponin values cannot be compared with other Troponin methodologies. Patients with high levels of Biotin oral intake (i.e >5mg/day) may have falsely decreased Troponin levels. Samples collected within 8 hours of biotin intake may require additional information for diagnosis. Performed By: #### U RNA, URTPRT, UMICAO, UEOS, UA #### [facility] [address] [place], [place] [phone] Loan Officer: Ronn Arias MD Troponin, High Sens 17 ng/L Normal 0-22 [facility] Comment on above: Result Comment: High Sensitivity Troponin values cannot be compared with other Troponin methodologies. Patients with high levels of Biotin oral intake (i.e >5mg/day) may have falsely decreased Troponin levels. Samples collected within 8 hours of biotin intake may require additional information for diagnosis. Performed By: #### U RNA, URTPRT, UMICAO, UEOS, UA #### [facility] [address] [place], [place] [phone] Loan Officer: Ronn Arias MD Troponin, High Sensitivity 18 ng/L 0 - 22 ng/L [facility] Comment on above: High Sensitivity Troponin values cannot be compared with other Troponin methodologies. Patients with high levels of Biotin oral intake (i.e >5mg/day) may have falsely decreased Troponin levels. Samples collected within 8 hours of biotin intake may require additional information for diagnosis. [facility] Troponin, High Sens 15 ng/L Normal 0-22 [facility] Comment on above: Result Comment: High Sensitivity Troponin values cannot be compared with other Troponin methodologies. Patients with high levels of Biotin oral intake (i.e >5mg/day) may have falsely decreased Troponin levels. Samples collected within 8 hours of biotin intake may require additional information for diagnosis. Performed By: #### U RNA, URTPRT, UMICAO, UEOS, UA #### [facility] [address] [place], [place] [phone] Loan Officer: Ronn Arias MD Troponin, High Sensitivity 17 ng/L 0 - 22 ng/L [facility] Comment on above: High Sensitivity Troponin values cannot be compared with other Troponin methodologies. Patients with high levels of Biotin oral intake (i.e >5mg/day) may have falsely decreased Troponin levels. Samples collected within 8 hours of biotin intake may require additional information for diagnosis. [facility] Troponin, High Sensitivity 15 ng/L 0 - 22 ng/L [facility] Comment on above: High Sensitivity Troponin values cannot be compared with other Troponin methodologies. Patients with high levels of Biotin oral intake (i.e >5mg/day) may have falsely decreased Troponin levels. Samples collected within 8 hours of biotin intake may require additional information for diagnosis. [facility] UA w/Reflex Cultureon 2021 Bilirubin, SemiQt,Ur MOD Abnormal NEG [facility] Comment on above: Performed By: #### U RNA, URTPRT, UMICAO, UEOS, UA #### [facility] [address] [place] [address] [phone] Loan Officer: Ronn Arias MD Blood, Urine SMALL Abnormal NEG [facility] Comment on above: Performed By: #### U RNA, URTPRT, UMICAO, UEOS, UA #### [facility] [address] [place] [address] [phone] Loan Officer: Ronn Arias MD Clarity (U) Turbid Abnormal CLEAR [facility] Comment on above: Performed By: #### U RNA, URTPRT, UMICAO, UEOS, UA #### [facility] [address] [place] [address] [phone] Loan Officer: Ronn Arias MD Color (U) Dark Yellow Abnormal YEL [facility] Comment on above: Performed By: #### U RNA, URTPRT, UMICAO, UEOS, UA #### [facility] [address] [place] [address] [phone] Loan Officer: Ronn Arias MD Glucose Ql (U) Negative Normal NEG [facility] Comment on above: Performed By: #### U RNA, URTPRT, UMICAO, UEOS, UA #### [facility] [address] [place] [address] [phone] Loan Officer: Ronn Arias MD Ketones Ql (U) Negative Normal NEG [facility] Comment on above: Performed By: #### U RNA, URTPRT, UMICAO, UEOS, UA #### [address] [phone] Loan Officer: Ronn Arias MD Leukocyte esterase Test strip Ql (U) Negative Normal NEG [facility] Comment on above: Performed By: #### U RNA, URTPRT, UMICAO, UEOS, UA #### [address] [phone] Loan Officer: Ronn Arias MD Nitrite,Ur Negative Normal NEG [facility] Comment on above: Performed By: #### U RNA, URTPRT, UMICAO, UEOS, UA #### [address] [phone] Loan Officer: Ronn Arias MD PH,Ur 5.0 Normal 5.0-8.0 [facility] Comment on above: Performed By: #### U RNA, URTPRT, UMICAO, UEOS, UA #### [address] [phone] Loan Officer: Ronn Arias MD Protein Ql (U) 1+ Abnormal NEG [facility] Comment on above: Performed By: #### U RNA, URTPRT, UMICAO, UEOS, UA #### [address] [phone] Loan Officer: Ronn Arias MD Spec. [place],Ur 1.013 Normal 1.005-1.03 0 [facility] Comment on above: Performed By: #### U RNA, URTPRT, UMICAO, UEOS, UA #### [address] [phone] Loan Officer: Ronn Arias MD Urobilinogen,Ur Normal Normal NORM [facility] Comment on above: Performed By: #### U RNA, URTPRT, UMICAO, UEOS, UA #### [employer] [facility] [address] [place], [place] [phone] Loan Officer: Ronn Arias MD Urinalysis with Reflex to Cu ltureon 01-01-2022 Bilirubin Urine MOD Abnormal NEGATIVE [facility] Color, UA Dark Yellow Abnormal Yellow [facility] Glucose, Ur Negative NEGATIVE [facility] Interpretation and review of laboratory results Abnormal [facility] Ketones Ql (U) Negative NEGATIVE [facility] Leukocyte esterase Test strip Ql (U) Negative NEGATIVE [facility] Nitrite, Urine Negative NEGATIVE [facility] pH, UA 5.0 5 - 8 [facility] Protein, UA 1+ Abnormal NEGATIVE [facility] Specific [place], UA 1.013 1.005 - 1.03 [facility] Turbidity UA Turbid Abnormal Clear [facility] Urine Hgb SMALL Abnormal NEGATIVE [facility] Urobilinogen, Urine Normal Normal [facility] Urinalysis, Microon 01-02-20 22 Casts UA 20 TO 50 [facility] Casts UA COARSELY GRANULAR [facility] Epithelial Cells UA 5 TO 10 [facility] RBC, UA 10 TO 20 [facility] WBC, UA 10 TO 20 [facility] Urinalysis,Microon 2 Casts 20 TO 50 Normal 0-2 [facility] Comment on above: Result Comment: COAR ASHLEY GRANULAR Performed By: #### U RNA, URTPRT, UMICAO, UEOS, UA #### [employer] [address] [place], [place] [phone] Loan Officer: Ronn Arias MD Epithelial cells LM Ql (Urine sed) 5 TO 10 Normal 0-5 [facility] Comment on above: Performed By: #### U RNA, URTPRT, UMICAO, UEOS, UA #### [employer] [address] [place], [place] [phone] Loan Officer: Ronn Arias MD Urine RBC's 10 TO 20 Normal 0-2 [facility] Comment on above: Performed By: #### U RNA, URTPRT, UMICAO, UEOS, UA #### [facility] [address] [place] [address] Loan Officer: Ronn Arias MD Urine WBC's 10 TO 20 Normal 0-5 [facility] Comment on above: Performed By: #### U RNA, URTPRT, UMICAO, UEOS, UA #### [facility] [address] [place], [place] [phone] Loan Officer: Ronn Arias MD CBC AUTO DIFFon 12-31-2021 BASO # 0.1 103/ul Normal 0.0-0.1 [facility] Comment on above: Performed By: #### H STROPN #### [facility] [address] [place] [address] Dr. Kulwant Brennan Basophils/100 WBC (Bld) 0.2 % Normal 0.2-2.0 [facility] Comment on above: Performed By: #### H STROPN #### [facility] [address] [place] [address] Dr. Kulwant Brennan EO # 0.0 103/ul Normal 0.0-0.7 [facility] Comment on above: Performed By: #### H STROPN #### [facility] [address] [address] [address] Kulwant Brennan Eosinophils/100 WBC (Bld) 0.0 % Critically low 0.9-7.0 [facility] Comment on above: Performed By: #### H STROPN #### [facility] [address] [place] [address] Dr. Kulwant Brennan Erythrocyte distribution width (RBC) [Ratio] 14.4 % Normal 11.0-15.0 [facility] Comment on above: Performed By: #### H STROPN #### [facility] [address] [place] [address] Dr. Kulwant Brennan Hematocrit (Bld) [Volume fraction] 37.9 % Critically low 42.0-54.0 [facility] Comment on above: Performed By: #### H STROPN #### [facility] [address] [address] [address] Kulwant Brennan Hemoglobin (Bld) [Mass/Vol] 12.2 g/dL Critically low 14.0-18.0 [facility] Comment on above: Performed By: #### H STROPN #### [facility] [address] [address] [address] Kulwant Brennan IG # 0.16 10e3/ul Critically high 0.00-0.03 [facility] Comment on above: Performed By: #### H STROPN #### [facility] [address] [place] [address] Dr. Kulwant Brennan IG % 0.6 % Critically high 0.0-0.5 [facility] Comment on above: Performed By: #### H STROPN #### [facility] [address] [place] [address] Dr. Kulwant Brennan LYMPH # 0.7 103/ul Critically low 1.2-3.8 [facility] Comment on above: Performed By: #### H STROPN #### [facility] [address] [place] [address] Dr. Kulwant Brennan Lymphocytes/100 WBC (Bld) 2.9 % Critically low 20.5-60.0 [facility] Comment on above: Performed By: #### H STROPN #### [facility] [address] [place] [address] Dr. Kulwant Brennan MANUAL DIFF REQ NO Normal [facility] Comment on above: Performed By: #### H STROPN #### [facility] [address] [address] [address] Kulwant Brennan MCH (RBC) [Entitic mass] 27.7 pg Normal 25.9-34.0 [facility] Comment on above: Performed By: #### H STROPN #### [facility] [address] [place] [address] Dr. Kulwant Brennan MCHC (RBC) [Mass/Vol] 32.2 g/dL Normal 29.9-35.2 [facility] Comment on above: Performed By: #### H STROPN #### [facility] [address] [address] [address] Kulwant Brennan MCV (RBC) [Entitic vol] 86.1 fL Normal 80.0-94.0 [facility] Comment on above: Performed By: #### H STROPN #### [facility] [address] [address] [address] Kulwant Brennan MONO # 1.6 103/ul Critically high 0.3-0.8 [facility] Comment on above: Performed By: #### H STROPN #### [facility] [address] [place] [address] Dr. Kulwant Brennan Monocytes/100 WBC (Bld) 6.4 % Normal 1.7-12.0 [facility] Comment on above: Performed By: #### H STROPN #### [facility] [address] [place] [address] Dr. Kulwant Brennan NEUT # 22.8 103/ul Critically high 1.4-6.5 [facility] Comment on above: Performed By: #### H STROPN #### [facility] [address] [place] [address] Dr. Kulwant Brennan Neutrophils/100 WBC (Bld) 89.9 % Critically high 43.0-75.0 [facility] [facility] Comment on above: Performed By: #### H STROPN #### [facility] [address] [place] [address] Dr. Kulwant Brennan Platelet mean volume (Bld) [Entitic vol] 10.0 fL Normal 9.5-13.5 [facility] Comment on above: Performed By: #### H STROPN #### [facility] [address] [place] [address] Dr. Kulwant Brennan PLT 211 103/ul Normal 150-450 [facility] Comment on above: Performed By: #### H STROPN #### [facility] [address] [address] [address] Kulwant Brennan RBC 4.40 106/ul Critically low 4.70-6.10 [facility] Comment on above: Performed By: #### H STROPN #### [facility] [address] [address] [address] Kulwant Brennan WBC 25.3 103/ul Critically high 4.0-11.0 [facility] Comment on above: Performed By: #### H STROPN #### [facility] [address] [address] [address] Kulwant Brennan CULTURE BLOODon 12-31-2021 Microscopic examination of blood, culture Culture Observations: NO GROWTH AT 5 DAYS. Normal [facility] Comment on above: Performed By: #### B LDCX2 ####[facility] [address] [address]Dr. Kulwant Brennan Performed By: #### B LDCX1 ####[facility] [address] [address]DrAmarjit Brennan CULTURE URINEon 12-31-2021 CULTURE URINE Culture Observations : MODERATE GROWTH OF MIXED SKIN MITA. NO POTENTIAL PATHOGENS SEEN. Normal [facility] Comment on above: Performed By: #### U RCX ####[facility] [address] [address]Dr. Kulwant Brennan Covid-19 PCR (CVDTB)on 12-21 SARS-CoV-2 (COVID-19) RNA MIKE+probe Ql (Unsp spec) Not detected Normal NOT DETECTED [facility] Comment on above: Result Comment: When [...] for this test is supported by the [place] of Health and Human Service's declaration that [...] be used). Performed By: #### C VDTB ####[facility] [address] [place], [place] [address]Dr. Kulwant Brennan ER URINE PROFILEon 2 Bilirubin Ql (U) MODERATE Abnormal NEGATIVE [facility] Comment on above: Performed By: #### Lilly JHAVERI UMICRO ####[facility] [address] [place], [place] [address]Dr. Kulwant Brennan Clarity (U) CLEAR Normal CLEAR [facility] Comment on above: Performed By: #### Lilly JHAVERI UMICRO ####[facility] [address] [place], [place] [address]Dr. Kulwant Brennan Color (U) DK. ORANGE Abnormal YELLOW [facility] Comment on above: Performed By: #### Lilly JHAVERI UMICRO ####[facility] [address] [place], [place] [address]Dr. Kulwant Brennan ERUAHD A micrscopic examina tion will be performed if indicated. Normal [facility] Comment on above: Performed By: #### Lilly JHAVERI UMICRO ####[facility] [address] [place], [place] [address]Dr. Kulwant Brennan Glucose Ql (U) Negative Normal NEGATIVE [facility] Comment on above: Performed By: #### Lilly JHAVERI UMICRO ####[facility] [address] [place], [place] [address]Dr. Kulwant Brennan Hemoglobin Ql (U) SMALL Abnormal NEGATIVE [facility] Comment on above: Performed By: #### Lilly JHAVERI UMICRO ####[facility] [address] [place], [place] [address]Dr. Kulwant Brennan Ketones Ql (U) Negative Normal NEGATIVE [facility] Comment on above: Performed By: #### MICHELLE VARELARO ####[facility] [address] [address]Dr. Kulwant Brennan LEUKOCYTES Negative Normal NEGATIVE [facility] Comment on above: Performed By: #### ANA LAURA VARELA ####[facility] [address] [address]Dr. Kulwant Brennan Nitrite Ql (U) Positive Abnormal NEGATIVE [facility] Comment on above: Performed By: #### ANA LAURA VARELA ####[facility] [address] [address]Dr. Kulwant Brennan pH (U) 5.5 [pH] Normal 5-9 [facility] Comment on above: Performed By: #### ANA LAURA VARELA ####[facility] [address] [place], [place] [address]Dr. Kulwant Brennan Protein (U) [Mass/Vol] 100 mg/dL Abnormal NEGATIVE/ TRACE [facility] Comment on above: Performed By: #### ANA LAURA VARELA ####[facility] [address] [place], [place] [address]Dr. Kulwant Brennan SPEC GRAVITY 1.020 Normal 1.005-<=1. 025 [facility] Comment on above: Performed By: #### ANA LAURA VARELA ####[facility] [address] [place], [place] [address]Dr. Kulwant Brennan UR MICRO IND INDICATED Normal [facility] Comment on above: Performed By: #### ANA LAURA VARELA ####[facility] [address] [place], [place] [address]Dr. Kulwant Brennan Urobilinogen Qn (U) 1.0 {Luis'U}/dL Normal 0.2 - 1. 0 [facility] Comment on above: Performed By: #### ANA LAURA VARELA ####[facility] [address] [place], [place] [address]Dr. Kulwant Brennan LACTATE/LACTIC ACIDon 2021 Lactate [Moles/Vol] 1.6 mmol/L Normal 0.4-1.9 [facility] Comment on above: Performed By: #### L ACT #### [facility] [address] [address] [address] Kulwant Brennan Lactate [Moles/Vol] 2.4 mmol/L Critically high 0.4-1.9 [facility] Comment on above: Performed By: #### L ACT ####[facility] [address] [place], [place] [address]WnDr. Kulwant Brennan LIPASEon 12-31-2021 Lipase [Catalytic activity/Vol] 6610.0 U/L Critically high 73.0-393.0 [facility] Comment on above: Performed By: #### L ACT #### [facility] [address] [address] [address] Kulwant Brennan PROF 14(COMP METB)on 022 Albumin [Mass/Vol] 3.3 g/dL Critically low 3.4-5.0 [facility] Comment on above: Performed By: #### L ACT #### [facility] [address] [address] [address] Kulwant Brennan Albumin/Globulin [Mass ratio] 0.9 {ratio} Normal [facility] Comment on above: Performed By: #### L ACT #### [facility] [address] [address] [address] Kulwant Brennan ALP [Catalytic activity/Vol] 124 U/L Critically high 46-116 [facility] Comment on above: Performed By: #### L ACT #### [facility] [address] [address] [address] Kulwant Brennan ALT [Catalytic activity/Vol] 327 U/L Critically high 16-63 [facility] Comment on above: Performed By: #### L ACT #### [facility] [address] [address] [address] Kulwant Brennan Anion gap [Moles/Vol] 15.6 mmol/L Normal [facility] Comment on above: Performed By: #### L ACT #### [facility] [address] [address] [address] Kulwant Brennan AST [Catalytic activity/Vol] 229 U/L Critically high 15-37 [facility] Comment on above: Performed By: #### L ACT #### [facility] [address] [address] [address] Kulwant Brennan Bilirubin [Mass/Vol] 6.2 mg/dL Critically high 0.2-1.0 [facility] Comment on above: Performed By: #### L ACT #### [facility] [address] [address] [address] Kulwant Brennan Calcium [Mass/Vol] 7.2 mg/dL Critically low 8.5-10.1 [facility] Comment on above: Performed By: #### L ACT #### [facility] [address] [address] [address] Kulwant Brennan Chloride [Moles/Vol] 102 mmol/L Normal 98-107 [facility] Comment on above: Performed By: #### L ACT #### [facility] [address] [address] [address] Kulwant Brennan CO2 [Moles/Vol] 26.4 mmol/L Normal 21.0-32.0 [facility] Comment on above: Performed By: #### L ACT #### [facility] [address] [address] [address] Kulwant Brennan Creatinine [Mass/Vol] 3.33 mg/dL Critically high 0.70-1.30 [facility] Comment on above: Performed By: #### L ACT #### [facility] [address] [address] [address] Kulwant Brennan EGFR-AF TRISTANIAN 22 mL/min/1.73m2 Critically low >=60 [facility] Comment on above: Performed By: #### L ACT #### [facility] [address] [address] [address] Kulwant Brennan EGFR-NON AF TRISTANIAN 19 mL/min/1.73m2 Critically low >=60 [facility] Comment on above: Performed By: #### L ACT #### [facility] [address] [address] [address] Kulwant Brennan Globulin (S) [Mass/Vol] 3.8 g/dL Normal [facility] Comment on above: Performed By: #### L ACT #### [facility] [address] [address] [address] Kulwant Brennan Glucose [Mass/Vol] 245 mg/dL Critically high 74-106 [facility] Comment on above: Performed By: #### L ACT #### [facility] [address] [address] [address] Kulwant Brennan Potassium [Moles/Vol] 5.0 mmol/L Normal 3.5-5.1 [facility] Comment on above: Performed By: #### L ACT #### [facility] [address] [address] [address] Kulwant Brennan Protein [Mass/Vol] 7.1 g/dL Normal 6.4-8.2 [facility] Comment on above: Performed By: #### L ACT #### [facility] [address] [address] [address] Kulwant Brennan Sodium [Moles/Vol] 139 mmol/L Normal 136-145 [facility] Comment on above: Performed By: #### L ACT #### [facility] [address] [address] [address] Kulwant Brennan Urea nitrogen [Mass/Vol] 51.0 mg/dL Critically high 7.0-18.0 [facility] Comment on above: Performed By: #### L ACT #### [facility] [address] [address] [address] Kulwant Brennan Urea nitrogen/Creatinine [Mass ratio] 15.3 mg/mg Normal [facility] Comment on above: Performed By: #### L ACT #### [facility] [address] [address] [address] Kulwant Brennan PROTIMEon 12-31-2021 INR Coag (PPP) [Relative time] 1.17 {INR} Normal [facility] Comment on above: Performed By: #### H STROPN #### [facility] [address] [address] [address] Kulwant Brennan INR GUIDELINES SEE BELOW Normal [facility] Comment on above: Result Comment: HAYDEE RED INR: 2.0 - 3.0 CONDITIONS NOT LISTED BELOW 2.5 - 3.5 FOR PROSTHETIC HEART VALVE REPLACEMENT 2.5 - 3.5 RECURRENT THROMBOSIS Performed By: #### H STROPN #### [facility] [address] [address] [address] Kulwant Brennan PT Coag (PPP) [Time] 12.5 s Critically high 9.0-11.6 [facility] Comment on above: Performed By: #### H STROPN #### [facility] [address] [address] [address] Kulwant Brennan PTTon 12-31-2021 aPTT Coag (Bld) [Time] 33.3 s Normal 22.3-36.2 [facility] Comment on above: Performed By: #### P TT, PT ####[facility] [address] [address]Dr. Kulwant Brennan TROPONIN, HIGH SENSITIVITYon 12-31-2021 HSTROP 6.0 pg/mL Normal 4.0-76.1 [facility] Comment on above: Result Comment: CUT- OFF POINTS HAVE BEEN ESTABLISHED BASED ON THE FOURTH UNIVERSAL DEFINITIONS OF MYOCARDIAL INFARCTION. THE UPPER REFERENCE LIMIT (URL) OF TROPONIN, DEFINED THE 99TH PERCENTILE OF cTnI DISTRIBUTION IN A REFERENCE POPULATION, HAS BEEN CONFIRMED THE DECISION THRESHOLD FOR [place] DIAGNOSIS. Performed By: #### L ACT #### [facility] [address] [place] [address] Dr. Kulwant Brennan URINE MICROSCOPIC ONLYon BACTERIA SMALL Abnormal NONE SEEN [facility] Comment on above: Performed By: #### MICHELLE VARELARO ####[facility] [address] [address]DrAmarjit Brennan Bacteria identified Cx Nom (U) INDICATED Normal [facility] Comment on above: Performed By: #### MICHELLE VARELARO ####[facility] [address] [address]Dr. Kulwant Brennan CAST SEEN Abnormal NONE SEEN [facility] Comment on above: Performed By: #### MICHELLE VARELARO ####[facility] [address] [address]Dr. Kulwant Brennan COARSE GRANULAR CAST FEW Normal [facility] Comment on above: Performed By: #### MICHELLE VARELARO ####[facility] [address] [address]Dr. Alanaselvin Brennan Crystals LM Nom (Urine sed) NONE SEEN Normal NONE SEEN [facility] Comment on above: Performed By: #### MICHELLE VARELARO ####[facility] [address] [address]Dr. Kulwant Brennan Epithelial cells LM Ql (Urine sed) FEW Abnormal NONE SEEN /RARE [facility] Comment on above: Performed By: #### MICHELLE VARELARO ####[facility] [address] [address]Dr. Kulwant Brennan MUCOUS TRACE Abnormal NONE SEEN [facility] Comment on above: Performed By: #### MICHELLE VARELARO ####[facility] [address] [address]Dr. Kulwant Brennan RBC 5-10 Abnormal 0-2 [facility] Comment on above: Performed By: #### MICHELLE VARELARO ####[facility] [address] [address]Dr. Kulwant Brennan WBC 0-2 Abnormal NONE SEEN [facility] Comment on above: Performed By: #### ANA LAURA AVRELA ####[facility] [address] [address]Dr. Alanaselvni Brennan US SINGLE QUAD RT UPPERon US [...] DAVIE NARANJO Date: 2021-12-31 19:27 Normal [facility] AMYLASEon 12-30-2021 Amylase [Catalytic activity/Vol] 47 U/L Normal 25-115 [facility] Comment on above: Performed By: #### H STROPN #### [facility] [address] [place] [address] Dr. Kulwant Brennan CBC AUTO DIFFon 12-30-2021 BASO # 0.0 103/ul Normal 0.0-0.1 [facility] Comment on above: Performed By: #### L ACT #### [facility] [address] [place] [address] Dr. Kulwant Brennan Basophils/100 WBC (Bld) 0.5 % Normal 0.2-2.0 [facility] Comment on above: Performed By: #### L ACT #### [facility] [address] [place] [address] Dr. Kulwant rBennan EO # 0.3 103/ul Normal 0.0-0.7 [facility] Comment on above: Performed By: #### L ACT #### [facility] [address] [place] [address] Dr. Kulwant Brennan Eosinophils/100 WBC (Bld) 3.3 % Normal 0.9-7.0 [facility] Comment on above: Performed By: #### L ACT #### [facility] [address] [place] [address] Dr. Kulwant Brennan Erythrocyte distribution width (RBC) [Ratio] 14.1 % Normal 11.0-15.0 [facility] Comment on above: Performed By: #### L ACT #### [facility] [address] [place] [address] Dr. Kulwant Brennan Hematocrit (Bld) [Volume fraction] 38.8 % Critically low 42.0-54.0 [facility] Comment on above: Performed By: #### L ACT #### [facility] [address] [place] [address] Dr. Kulwant Brennan Hemoglobin (Bld) [Mass/Vol] 12.4 g/dL Critically low 14.0-18.0 [facility] Comment on above: Performed By: #### L ACT #### [facility] [address] [place] [address] Dr. Kulwant Brennan IG # 0.04 10e3/ul Critically high 0.00-0.03 [facility] Comment on above: Performed By: #### L ACT #### [facility] [address] [place] [address] Dr. Kulwant Brennan IG % 0.5 % Normal 0.0-0.5 [facility] Comment on above: Performed By: #### L ACT #### [facility] [address] [place] [address] Dr. Kulwant Brennan LYMPH # 1.9 103/ul Normal 1.2-3.8 [facility] Comment on above: Performed By: #### L ACT #### [facility] [address] [place] [address] Dr. Kulwant Brennan Lymphocytes/100 WBC (Bld) 23.9 % Normal 20.5-60.0 [facility] Comment on above: Performed By: #### L ACT #### [facility] [address] [place] [address] Dr. Kulwant Brennan MANUAL DIFF REQ NO Normal [facility] Comment on above: Performed By: #### L ACT #### [facility] [address] [place] [address] Dr. Kulwant Brennan MCH (RBC) [Entitic mass] 27.5 pg Normal 25.9-34.0 [facility] Comment on above: Performed By: #### L ACT #### [facility] [address] [address] [address] Kulwant Brennan MCHC (RBC) [Mass/Vol] 32.0 g/dL Normal 29.9-35.2 [facility] Comment on above: Performed By: #### L ACT #### [facility] [address] [address] [address] Kulwant Brennan MCV (RBC) [Entitic vol] 86.0 fL Normal 80.0-94.0 [facility] Comment on above: Performed By: #### L ACT #### [facility] [address] [place] [address] Dr. Kulwant Brennan MONO # 0.9 103/ul Critically high 0.3-0.8 [facility] Comment on above: Performed By: #### L ACT #### [facility] [address] [place] [address] Dr. Kulwant Brennan Monocytes/100 WBC (Bld) 11.8 % Normal 1.7-12.0 [facility] Comment on above: Performed By: #### L ACT #### [facility] [address] [place] [address] Dr. Kulwant Brennan NEUT # 4.7 103/ul Normal 1.4-6.5 [facility] Comment on above: Performed By: #### L ACT #### [facility] [address] [place] [address] Dr. Kulwant Brennan Neutrophils/100 WBC (Bld) 60.0 % Normal 43.0-75.0 [facility] Comment on above: Performed By: #### L ACT #### [facility] [address] [address] [address] Kulwant Brennan Platelet mean volume (Bld) [Entitic vol] 10.0 fL Normal 9.5-13.5 [facility] Comment on above: Performed By: #### L ACT #### [facility] [address] [place], [place] [address] Dr. Kulwant Brennan PLT 222 103/ul Normal 150-450 [facility] Comment on above: Performed By: #### L ACT #### [facility] [address] [place], [place] [address] Dr. Kulwant Brennan RBC 4.51 106/ul Critically low 4.70-6.10 [facility] Comment on above: Performed By: #### L ACT #### [facility] [address] [place], [place] [address] Dr. Kulwant Brennan WBC 7.9 103/ul Normal 4.0-11.0 [facility] Comment on above: Performed By: #### L ACT #### [facility] [address] [place], [place] [address] ABD/PELV W CONon 12-31-19 CT ABD/PELV W CON EXAMINATION: CT ABD/ PELV W CON HISTORY: UNSPECIFIED ABDOMINAL PAIN COMPARISON: 12/29/2021. TECHNIQUE: CT of abdomen/pelvis with intravenous contrast. Dose reduction techniques were achieved by using automated exposure control and/or adjustment of mA and/or kV according to patient size and/or use of iterative reconstruction technique. FINDINGS: Recovery Unit Operator: No pertinent findings, which are not already [...] ALIYA NEFF Date: 2021-12-30 21:29 Normal [facility] ER URINE PROFILEon 2 Bilirubin Ql (U) Negative Normal NEGATIVE [facility] Comment on above: Performed By: #### L ACT #### [facility] [address] [place] [address] Dr. Kulwant Brennan Clarity (U) CLEAR Normal CLEAR [facility] Comment on above: Performed By: #### L ACT #### [facility] [address] [place] [address] Dr. Kulwant Brennan Color (U) LT. YELLOW Normal YELLOW [facility] Comment on above: Performed By: #### L ACT #### [facility] [address] [address] [address] Kulwant Brennan ERUAHD A micrscopic examina tion will be performed if indicated. Normal [facility] Comment on above: Performed By: #### L ACT #### [facility] [address] [address] [address] Kulwant Brennan Glucose Ql (U) Negative Normal NEGATIVE [facility] Comment on above: Performed By: #### L ACT #### [facility] [address] [address] [address] Kulwant Brennan Hemoglobin Ql (U) Negative Normal NEGATIVE [facility] Comment on above: Performed By: #### L ACT #### [facility] [address] [place] [address] Dr. Kulwant Brennan Ketones Ql (U) Negative Normal NEGATIVE [facility] Comment on above: Performed By: #### L ACT #### [facility] [address] [place] [address] Dr. Kulwant Brennan LEUKOCYTES Negative Normal NEGATIVE [facility] Comment on above: Performed By: #### L ACT #### [facility] [address] [place] [address] Dr. Kulwant Brennan Nitrite Ql (U) Negative Normal NEGATIVE [facility] Comment on above: Performed By: #### L ACT #### [facility] [address] [place] [address] Dr. Kulwant Brennan pH (U) 5.5 [pH] Normal 5-9 [facility] Comment on above: Performed By: #### L ACT #### [facility] [address] [place] [address] Dr. Kulwant Brennan SPEC GRAVITY >=1.030 Abnormal 1.005-<=1. 025 [facility] Comment on above: Performed By: #### L ACT #### [facility] [address] [place] [address] Dr. Kulwant Brennan UA PROTEIN Negative Normal NEGATIVE/ TRACE [facility] Comment on above: Performed By: #### L ACT #### [facility] [address] [place] [address] Dr. Kulwant Brennan UR MICRO IND NOT INDICATED Normal [facility] Comment on above: Performed By: #### L ACT #### [facility] [address] [place] [address] Dr. Kulwant Brennan Urobilinogen Qn (U) 0.2 {Luis'U}/dL Normal 0.2 - 1. 0 [facility] Comment on above: Performed By: #### L ACT #### [facility] [address] [place] [address] Dr. Kulwant Brennan LIPASEon 12-30-2021 Lipase [Catalytic activity/Vol] 105.0 U/L Normal 73.0-393.0 [facility] Comment on above: Performed By: #### H STROPN #### [facility] [address] [place] [address] Dr. Kulwant Brennan LIVER PROFILEon 12-30-2021 Albumin [Mass/Vol] 3.8 g/dL Normal 3.4-5.0 [facility] Comment on above: Performed By: #### H STROPN #### [facility] [address] [place] [address] Dr. Kulwant Brennan Albumin/Globulin [Mass ratio] 1.0 {ratio} Normal [facility] Comment on above: Performed By: #### H STROPN #### [facility] [address] [place] [address] Dr. Kulwant Brennan ALP [Catalytic activity/Vol] 67 U/L Normal 46-116 [facility] Comment on above: Performed By: #### H STROPN #### [facility] [address] [place] [address] Dr. Kulwant Brennan ALT [Catalytic activity/Vol] 31 U/L Normal 16-63 [facility] Comment on above: Performed By: #### H STROPN #### [facility] [address] [place] [address] Dr. Kulwant rBennan AST [Catalytic activity/Vol] 21 U/L Normal 15-37 [facility] Comment on above: Performed By: #### H STROPN #### [facility] [address] [place] [address] Dr. Kulwant Brennan BILI, CONJUGATED 0.1 mg/dL Normal 0.0-0.2 [facility] Comment on above: Performed By: #### H STROPN #### [facility] [address] [place] [address] Dr. Kulwant Brennan Bilirubin [Mass/Vol] 0.5 mg/dL Normal 0.2-1.0 [facility] Comment on above: Performed By: #### H STROPN #### [facility] [address] [place] [address] Dr. Kulwant Brennan Globulin (S) [Mass/Vol] 3.7 g/dL Normal [facility] Comment on above: Performed By: #### H STROPN #### [facility] [address] [place] [address] Dr. Kulwant Brennan Protein [Mass/Vol] 7.5 g/dL Normal 6.4-8.2 [facility] Comment on above: Performed By: #### H STROPN #### [facility] [address] [address] [address] Kulwant Brennan PROF CHEM 8 (BAS METB)on Anion gap [Moles/Vol] 14.5 mmol/L Normal [facility] Comment on above: Performed By: #### H STROPN #### [facility] [address] [place] [address] Dr. Kulwant Brennan Calcium [Mass/Vol] 7.5 mg/dL Critically low 8.5-10.1 [facility] Comment on above: Performed By: #### H STROPN #### [facility] [address] [place] [address] Dr. Kulwant Brennan Chloride [Moles/Vol] 104 mmol/L Normal 98-107 [facility] Comment on above: Performed By: #### H STROPN #### [facility] [address] [place] [address] Dr. Kulwant Brennan CO2 [Moles/Vol] 26.8 mmol/L Normal 21.0-32.0 [facility] Comment on above: Performed By: #### H STROPN #### [facility] [address] [place] [address] Dr. Kulwant Brennan Creatinine [Mass/Vol] 1.31 mg/dL Critically high 0.70-1.30 [facility] Comment on above: Performed By: #### H STROPN #### [facility] [address] [place] [address] Dr. Kulwant Brennan EGFR-AF TRISTANIAN >60 Normal >=60 [facility] Comment on above: Performed By: #### H STROPN #### [facility] [address] [place] [address] Dr. Kulwant Brennan EGFR-NON AF TRISTANIAN 54 mL/min/1.73m2 Critically low >=60 [facility] Comment on above: Performed By: #### H STROPN #### [facility] [address] [place] [address] Dr. Kulwant Brennan Glucose [Mass/Vol] 97 mg/dL Normal 74-106 [facility] Comment on above: Performed By: #### H STROPN #### [facility] [address] [place] [address] Dr. Kulwant Brennan Potassium [Moles/Vol] 4.3 mmol/L Normal 3.5-5.1 [facility] Comment on above: Performed By: #### H STROPN #### [facility] [address] [place] [address] Dr. Kulwant Brennan Sodium [Moles/Vol] 141 mmol/L Normal 136-145 [facility] Comment on above: Performed By: #### H STROPN #### [facility] [address] [place] [address] Dr. Kulwant Brennan Urea nitrogen [Mass/Vol] 25.0 mg/dL Critically high 7.0-18.0 [facility] Comment on above: Performed By: #### H STROPN #### [facility] [address] [place] [address] Dr. Kulwant Brennan Urea nitrogen/Creatinine [Mass ratio] 19.1 mg/mg Normal [facility] Comment on above: Performed By: #### H STROPN #### [facility] [address] [place] [address] Dr. Kulwant Brennan CBC AUTO DIFFon 12-29-2021 BASO # 0.0 103/ul Normal 0.0-0.1 [facility] Comment on above: Performed By: #### H STROPN #### [facility] [address] [place] [address] Dr. Kulwant Brennan Basophils/100 WBC (Bld) 0.5 % Normal 0.2-2.0 [facility] Comment on above: Performed By: #### H STROPN #### [facility] [address] [place] [address] Dr. Kulwant Brennan EO # 0.3 103/ul Normal 0.0-0.7 [facility] Comment on above: Performed By: #### H STROPN #### [facility] [address] [place] [address] Dr. Kulwant Brennan Eosinophils/100 WBC (Bld) 3.6 % Normal 0.9-7.0 [facility] Comment on above: Performed By: #### H STROPN #### [facility] [address] [place] [address] Dr. Kulwant Brennan Erythrocyte distribution width (RBC) [Ratio] 14.1 % Normal 11.0-15.0 [facility] Comment on above: Performed By: #### H STROPN #### [facility] [address] [place] [address] Dr. Kulwant Brennan Hematocrit (Bld) [Volume fraction] 39.0 % Critically low 42.0-54.0 [facility] Comment on above: Performed By: #### H STROPN #### [facility] [address] [place] [address] Dr. Kulwant Brennan Hemoglobin (Bld) [Mass/Vol] 12.5 g/dL Critically low 14.0-18.0 [facility] Comment on above: Performed By: #### H STROPN #### [facility] [address] [place] [address] Dr. Kulwant Brennan IG # 0.03 10e3/ul Normal 0.00-0.03 [facility] Comment on above: Performed By: #### H STROPN #### [facility] [address] [place] [address] Dr. Kulwant Brennan IG % 0.4 % Normal 0.0-0.5 [facility] Comment on above: Performed By: #### H STROPN #### [facility] [address] [place] [address] Dr. Kulwant Brennan LYMPH # 2.0 103/ul Normal 1.2-3.8 [facility] Comment on above: Performed By: #### H STROPN #### [facility] [address] [place] [address] Dr. Kulwant Brennan Lymphocytes/100 WBC (Bld) 28.0 % Normal 20.5-60.0 [facility] Comment on above: Performed By: #### H STROPN #### [facility] [address] [place] [address] Dr. Kulwant Brennan MANUAL DIFF REQ NO Normal [facility] Comment on above: Performed By: #### H STROPN #### [facility] [address] [place] [address] Dr. Kulwant Brennan MCH (RBC) [Entitic mass] 27.5 pg Normal 25.9-34.0 [facility] Comment on above: Performed By: #### H STROPN #### [facility] [address] [place] [address] Dr. Kulwant Brennan MCHC (RBC) [Mass/Vol] 32.1 g/dL Normal 29.9-35.2 [facility] Comment on above: Performed By: #### H STROPN #### [facility] [address] [place] [address] Dr. Kulwant Brennan MCV (RBC) [Entitic vol] 85.7 fL Normal 80.0-94.0 [facility] Comment on above: Performed By: #### H STROPN #### [facility] [address] [place] [address] Dr. Kulwant Brennan MONO # 1.0 103/ul Critically high 0.3-0.8 [facility] Comment on above: Performed By: #### H STROPN #### [facility] [address] [place] [address] Dr. Kulwant Brennan Monocytes/100 WBC (Bld) 14.0 % Critically high 1.7-12.0 [facility] Comment on above: Performed By: #### H STROPN #### [facility] [address] [place] [address] Dr. Kulwant Brennan NEUT # 3.9 103/ul Normal 1.4-6.5 [facility] Comment on above: Performed By: #### H STROPN #### [facility] [address] [place] [address] Dr. Kulwant Brennan Neutrophils/100 WBC (Bld) 53.5 % Normal 43.0-75.0 [facility] Comment on above: Performed By: #### H STROPN #### [facility] [address] [place] [address] Dr. Kulwant Brennan Platelet mean volume (Bld) [Entitic vol] 10.1 fL Normal 9.5-13.5 [facility] Comment on above: Performed By: #### H STROPN #### [facility] [address] [address] [address] Kulwant Brennan PLT 237 103/ul Normal 150-450 [facility] Comment on above: Performed By: #### H STROPN #### [facility] [address] [address] [address] Kulwant Brennan RBC 4.55 106/ul Critically low 4.70-6.10 [facility] Comment on above: Performed By: #### H STROPN #### [facility] [address] [address] [address] Kulwant Brennan WBC 7.3 103/ul Normal 4.0-11.0 [facility] Comment on above: Performed By: #### H STROPN #### [facility] [address] [place] [address] ABD/PELVIS WO CONon [...] AMOS RAMIREZ Date: 2021-12-29 00:59 Normal [facility] PROF 14(COMP METB)on 022 Albumin [Mass/Vol] 4.0 g/dL Normal 3.4-5.0 [facility] Comment on above: Performed By: #### H STROPN #### [facility] [address] [place] [address] Dr. Kulwant Brennan Albumin/Globulin [Mass ratio] 1.1 {ratio} Normal [facility] Comment on above: Performed By: #### H STROPN #### [facility] [address] [address] [address] Kulwant Brennan ALP [Catalytic activity/Vol] 68 U/L Normal 46-116 [facility] Comment on above: Performed By: #### H STROPN #### [facility] [address] [address] [address] Kulwant Brennan ALT [Catalytic activity/Vol] 27 U/L Normal 16-63 [facility] Comment on above: Performed By: #### H STROPN #### [facility] [address] [address] [address] Kulwant Brennan Anion gap [Moles/Vol] 12.8 mmol/L Normal [facility] Comment on above: Performed By: #### H STROPN #### [facility] [address] [address] [address] Kulwant Brennan AST [Catalytic activity/Vol] 16 U/L Normal 15-37 [facility] Comment on above: Performed By: #### H STROPN #### [facility] [address] [address] [address] Kulwant Brennan Bilirubin [Mass/Vol] 0.5 mg/dL Normal 0.2-1.0 [facility] Comment on above: Performed By: #### H STROPN #### [facility] [address] [address] [address] Kulwant Brennan Calcium [Mass/Vol] 7.4 mg/dL Critically low 8.5-10.1 [facility] Comment on above: Performed By: #### H STROPN #### [facility] [address] [address] [address] Kulwant Brennan Chloride [Moles/Vol] 102 mmol/L Normal 98-107 [facility] Comment on above: Performed By: #### H STROPN #### [facility] [address] [address] [address] Kulwant Brennan CO2 [Moles/Vol] 27.1 mmol/L Normal 21.0-32.0 [facility] Comment on above: Performed By: #### H STROPN #### [facility] [address] [address] [address] Kulwant Brennan Creatinine [Mass/Vol] 1.42 mg/dL Critically high 0.70-1.30 [facility] Comment on above: Performed By: #### H STROPN #### [facility] [address] [address] [address] Kulwant Brennan EGFR-AF TRISTANIAN 60 mL/min/1.73m2 Normal >=60 [facility] Comment on above: Performed By: #### H STROPN #### [facility] [address] [address] [address] Kulwant Brennan EGFR-NON AF TRISTANIAN 50 mL/min/1.73m2 Critically low >=60 [facility] Comment on above: Performed By: #### H STROPN #### [facility] [address] [address] [address] Kulwant Brennan Globulin (S) [Mass/Vol] 3.5 g/dL Normal [facility] Comment on above: Performed By: #### H STROPN #### [facility] [address] [address] [address] Kulwant Brennan Glucose [Mass/Vol] 139 mg/dL Critically high 74-106 [facility] Comment on above: Performed By: #### H STROPN #### [facility] [address] [address] [address] Kulwant Brennan Potassium [Moles/Vol] 3.9 mmol/L Normal 3.5-5.1 [facility] Comment on above: Performed By: #### H STROPN #### [facility] [address] [address] [address] Kulwant Brennan Protein [Mass/Vol] 7.5 g/dL Normal 6.4-8.2 [facility] Comment on above: Performed By: #### H STROPN #### [facility] [address] [address] [address] Kulwant Brennan Sodium [Moles/Vol] 138 mmol/L Normal 136-145 [facility] Comment on above: Performed By: #### H STROPN #### [facility] [address] [address] [address] Kulwant Brennan Urea nitrogen [Mass/Vol] 27.0 mg/dL Critically high 7.0-18.0 [facility] Comment on above: Performed By: #### H STROPN #### [facility] [address] [address] [address] Kulwant Brennan Urea nitrogen/Creatinine [Mass ratio] 19.0 mg/mg Normal [facility] Comment on above: Performed By: #### H STROPN #### [facility] [address] [address] [address] Kulwant Brennan APTTon 12-13-2021 aPTT Coag (Bld) [Time] 32.8 s Normal 25.0-35.0 [facility] Comment on above: Order Comment: No: [...] THIS PURPOSE. Performed By: #### 5 [id number], 86979 #### [facility] [address] CBC COMPLETE BLOOD COUNTon 0 12-13-2021 Erythrocyte distribution width (RBC) [Ratio] 14.0 % Normal 11.5-15.0 [facility] Comment on above: Order Comment: No: D o not add to previous draw Performed By: #### 5 6100, 51407 #### [facility] [address] [place] [address], [facility] Hematocrit (Bld) [Volume fraction] 36.7 % Low 39.0-50.0 [facility] Comment on above: Order Comment: No: D o not add to previous draw Performed By: #### 5 6100, 42341 #### [facility] [address] [place] [address], [facility] Hemoglobin (Bld) [Mass/Vol] 12.0 g/dL Low 13.0-17.0 [facility] Comment on above: Order Comment: No: D o not add to previous draw Performed By: #### 5 6100, 60683 #### [facility] [address] [place] [address], [facility] MCH (RBC) [Entitic mass] 27.5 pg Normal 27.0-33.0 [facility] Comment on above: Order Comment: No: D o not add to previous draw Performed By: #### 5 610, 72412 #### [facility] [address] [place] [address], [facility] MCHC (RBC) [Mass/Vol] 32.7 g/dL Normal 32.0-35.0 [facility] Comment on above: Order Comment: No: D o not add to previous draw Performed By: #### 5 6100, 25131 #### [facility] [address] [place] [id number], [facility] MCV (RBC) [Entitic vol] 84.0 fL Normal 82.0-98.0 [facility] Comment on above: Order Comment: No: D o not add to previous draw Performed By: #### 5 6100, 55915 #### [facility] [address] [place] [address], [facility] Nucleated RBC/100 WBC (Bld) [Ratio] 0 % Normal 0-0 [facility] Comment on above: Order Comment: No: D o not add to previous draw Performed By: #### 5 6100, 98566 #### [facility] [address] [place] [address], [place] PLAT CNT 166 10*3/uL Normal 150-400 [facility] Comment on above: Order Comment: No: D o not add to previous draw Performed By: #### 5 6100, 06625 #### [facility] [address] [place] [address], [facility] RBC (Bld) [#/Vol] 4.37 10*6/uL Normal 4.20-5.70 [facility] Comment on above: Order Comment: No: D o not add to previous draw Performed By: #### 5 6100, 31624 #### [facility] [address] [place] [id number], [place] WBC (Bld) [#/Vol] 8.41 10*3/uL Normal 4.00-10.60 [facility] Comment on above: Order Comment: No: D o not add to previous draw Performed By: #### 5 6100, 84218 #### [facility] [address] [place] [address], [place] COMP METABOLIC PANELon 12-13 Albumin [Mass/Vol] 3.8 g/dL Normal 3.5-5.7 [facility] Comment on above: Order Comment: No: D o not add to previous draw Performed By: #### 5 610, 34840 #### [facility] [address] [place] [address], [place] ALKALINE PHOSPH 52 IU/L Normal 34-104 [facility] Comment on above: Order Comment: No: D o not add to previous draw Performed By: #### 5 610, 61405 #### [facility] [address] [place] [address], [place] ALT [Catalytic activity/Vol] 16 U/L Normal 7-52 [facility] Comment on above: Order Comment: No: D o not add to previous draw Performed By: #### 5 610, 94996 #### [facility] [address] [place] [address], [place] AST [Catalytic activity/Vol] 15 U/L Normal 13-39 [facility] Comment on above: Order Comment: No: D o not add to previous draw Performed By: #### 5 610, 64806 #### [facility] [address] [place] [address], [place] Bilirubin [Mass/Vol] 0.9 mg/dL Normal 0.3-1.0 [facility] Comment on above: Order Comment: No: D o not add to previous draw Performed By: #### 5 610, 49414 #### [facility] [address] [place] [address], [place] Calcium [Mass/Vol] 7.0 mg/dL Low 8.6-10.3 [facility] Comment on above: Order Comment: No: D o not add to previous draw Performed By: #### 5 610, 64673 #### [facility] [address] [place] [address], [facility] Chloride [Moles/Vol] 106 mmol/L Normal 98-107 [facility] Comment on above: Order Comment: No: D o not add to previous draw Performed By: #### 5 610, 94726 #### [facility] [address] [place] [address], [place] CO2 [Moles/Vol] 27 mmol/L Normal 21-31 [facility] Comment on above: Order Comment: No: D o not add to previous draw Performed By: #### 5 610, 73212 #### [facility] [address] [place] [address], [facility] Creatinine [Mass/Vol] 1.16 mg/dL Normal 0.70-1.30 [facility] Comment on above: Order Comment: No: D o not add to previous draw Performed By: #### 5 610, 00363 #### [facility] [address] [place] [address], [place] GFR/1.73 sq M.predicted among non-blacks MDRD (S/P/Bld) [Vol rate/Area] mL/min/{1.73_m2} Normal >60 [facility] Comment on above: Order Comment: No: D o not add to previous draw Result Comment: [facility]'s estimated glomerular filtration rate (eGFR) will [...] of individuals. Performed By: #### 5 6101, 37035 #### [facility] [address] [place] [address], [place] Glucose [Mass/Vol] 104 mg/dL High 70-100 [facility] Comment on above: Order Comment: No: D o not add to previous draw Performed By: #### 5 6101, 71170 #### [facility] [address] [place] [address], [place] Potassium [Moles/Vol] 4.3 mmol/L Normal 3.5-5.1 [facility] Comment on above: Order Comment: No: D o not add to previous draw Performed By: #### 5 6101, 08955 #### [facility] [address] [place] [address], [place] Protein [Mass/Vol] 6.2 g/dL Normal 6.0-8.3 [facility] Comment on above: Order Comment: No: D o not add to previous draw Performed By: #### 5 6101, 90282 #### [facility] [address] [place] [address], [place] Sodium [Moles/Vol] 138 mmol/L Normal 136-145 [facility] Comment on above: Order Comment: No: D o not add to previous draw Performed By: #### 5 6101, 14985 #### [facility] [address] [place] [address], [facility] Urea nitrogen [Mass/Vol] 26 mg/dL High 7-25 [facility] Comment on above: Order Comment: No: D o not add to previous draw Performed By: #### 5 6101, 59368 #### [facility] [address] [place] [address], [facility] Cardiovascular Lab Reporton 12-13-2021 Cardiovascular Lab Report [facility] Patient Name: Yoli Antunez [facility] MR #: [id number] Physician: Mono Montero [facility] Service Date: 12/12/2021 Division of Birthdate: 1955 Cardiology Room #: [id number] Adult Cardiovascular Services [facility] [address] [place] [address] Cardiovascular Laboratory Report INDICATION: The patient is [...] the right common femoral vein using a 6-Bulgarian ProGlide device. METHODS: Procedure was explained to the patient with risks and benefits, he signed informed consent. 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 The procedure was [...] the right common femoral vein and a 6-Bulgarian x 11 cm sheath was placed. Preclosure in the vein was performed using a 6-Bulgarian ProGlide device, a transseptal wire was advanced [...] clockwise rotation of the system and a NovoDynamicswater wire was advanced to the left superior [...] was retracted and exchanged to the Watchman 14-Bulgarian double curve access sheath. This was not [...] stiffer wire. This was performed using a 6-Bulgarian multipurpose catheter, through which we advanced a Lunderquist double curve wire and the distal end was placed in the left superior pulmonary vein. This eventually allowed to advance the sheath across the interatrial septum. A 6-Bulgarian angled pigtail catheter was advanced and used [...] the (more content not included)... Normal [facility] PROTHROMBIN TIMEon 2 INR Coag (PPP) [Relative time] 1.09 {INR} Normal 0.91-1.16 [facility] Comment on above: Order Comment: No: [...] CHEST 1995;[id number]. Performed By: #### 5 6101, 70809 #### [facility] [address] PT Coag (PPP) [Time] 14.1 s Normal 12.3-14.8 [facility] Comment on above: Order Comment: No: D o not add to previous draw Result Comment: ALL RESULTS MUST BE INTERPRETED WITH RESPECT TO BLOOD DRAWING ARTIFACT OR DILUTION ERROR OF ANTICOAGULANT AT THE TIME OF SAMPLING. Performed By: #### 5 6101, 21572 #### [facility] [address] TYPE AND SCREENon 12-12-2021 ABO INTERPRETATION O Normal [facility] Comment on above: Performed By: #### 6 2586 #### [facility] [address] RH INTERPRETATION Positive Normal [facility] Comment on above: Performed By: #### 6 2586 #### [facility] [address] Covid-19 PCR (CVDTB)on 11-20 SARS-CoV-2 (COVID-19) RNA MIKE+probe Ql (Unsp spec) Not detected Normal NOT DETECTED [facility] Comment on above: Result Comment: This test is not yet approved or cleared by the [place] FDA. When there are no FDA-approved or cleared tests available, and other criteria are met, FDA can make tests available under an emergency access mechanism called an Emergency Use Authorization (EUA). The EUA for this test is supported by the [employer] Operator of Health and Human Service's (HHS's) [...] SARS-CoV-2. Performed By: #### L ACT #### [facility] [address] [place] [address] Dr. Kulwant Brennan *MRSA/MSSA DNA NASALon 11-21 *MRSA/MSSA DNA NASAL Clinical Report: (D ) Specimen: NASAL SWAB Collected: 11/21/2021 09:15 Status: Final Last Updated: 11/21/2021 12:32 MSSA DNA (Final) Negative MRSA DNA (Final) Negative Normal [facility] Comment on above: Performed By: #### 3 1595 #### [facility] [address] BASIC METABOLIC PANELon 08-0 Calcium [Mass/Vol] 7.0 mg/dL Low 8.6-10.3 [facility] Comment on above: Performed By: #### 0 0071 #### [facility] [address] [place] [address], [facility] Chloride [Moles/Vol] 105 mmol/L Normal 98-107 [facility] Comment on above: Performed By: #### 0 0071 #### [facility] [address] [place] [address], [facility] CO2 [Moles/Vol] 25 mmol/L Normal 21-31 The [facility] Comment on above: Performed By: #### 0 0071 #### [facility] [address] [address], [facility] Creatinine [Mass/Vol] 1.37 mg/dL High 0.70-1.30 [facility] Comment on above: Performed By: #### 0 0071 #### [facility] [address] [facility] [place] [address], [facility] EGFR 56 ml/min/1.73sq m Abnormal >60 The [facility] Comment on above: Result Comment: The [facility]'s estimated glomerular filtration rate (eGFR) will [...] individuals. Performed By: #### 0 0071 #### [facility] [address] [facility] [place] [address], [facility] Glucose [Mass/Vol] 100 mg/dL Normal 70-100 The [facility] Comment on above: Performed By: #### 0 0071 #### [facility] [address] [place] [place] [address], [facility] Potassium [Moles/Vol] 4.6 mmol/L Normal 3.5-5.1 The [facility] Comment on above: Performed By: #### 0 0071 #### [facility] [address] [facility] [place] [address], [facility] Sodium [Moles/Vol] 139 mmol/L Normal 136-145 The [facility] Comment on above: Performed By: #### 0 0071 #### [facility] [address] [facility]. [address] Urea nitrogen [Mass/Vol] 26 mg/dL High 7-25 The [facility] Comment on above: Performed By: #### 0 0071 #### [facility] [address] CBC COMPLETE BLOOD COUNTon 0 11-21-2021 Erythrocyte distribution width (RBC) [Ratio] 14.2 % Normal 11.5-15.0 The [facility] Comment on above: Performed By: #### 5 610, [id number] #### [facility] [address] [facility] [address] [facility] Hematocrit (Bld) [Volume fraction] 40.6 % Normal 39.0-50.0 The [facility] Comment on above: Performed By: #### 5 6100, 74837 #### [facility] [address] [facility] Hemoglobin (Bld) [Mass/Vol] 13.0 g/dL Normal 13.0-17.0 The [facility] Comment on above: Performed By: #### 5 610, 24365 #### [facility] [address] [facility]. [address] MCH (RBC) [Entitic mass] 27.0 pg Normal 27.0-33.0 The [facility] Comment on above: Performed By: #### 5 6100, 19300 #### [facility] [address] [facility]. [address] MCHC (RBC) [Mass/Vol] 32.0 g/dL Normal 32.0-35.0 The [facility] Comment on above: Performed By: #### 5 610, 95458 #### [facility] [address] [place] [address], [facility] MCV (RBC) [Entitic vol] 84.4 fL Normal 82.0-98.0 The [facility] Comment on above: Performed By: #### 5 6100, 27602 #### [facility] [address] [place] [address], [facility] Nucleated RBC/100 WBC (Bld) [Ratio] 0 % Normal 0-0 The [facility] Comment on above: Performed By: #### 5 6101, 87572 #### [facility] [address] [facility] [address], [facility] PLAT CNT 232 10*3/uL Normal 150-400 The [facility] Comment on above: Performed By: #### 5 6101, 08518 #### [facility] [address] [place] [address], [facility] RBC (Bld) [#/Vol] 4.81 10*6/uL Normal 4.20-5.70 The [facility] Comment on above: Performed By: #### 5 6101, 39865 #### [facility] [address] [place] [address], [facility] WBC (Bld) [#/Vol] 7.53 10*3/uL Normal 4.00-10.60 The [facility] Comment on above: Performed By: #### 5 6101, 39494 #### [facility] [address] CHEST AND LATERALon 11-22-19 CHEST AND LATERAL [facility] Department of Radiology [address] [place] [id number] Patient Name: YOLI ANTUNEZ : 1955 [...] device. Electronically signed: Danilo Bhandari. Transcribed by: [id number], User Resident: Electronically Signed by: DANILO BHANDARI @ 11/21/2021 11:32 AM Normal The [facility] Comment on above: Order Comment: No: D o not add to previous draw Covid-19 PCR ([facility])on 10-21 SARS-CoV-2 (COVID-19) RNA MIKE+probe Ql (Unsp spec) Not detected Normal NOT DETECTED The [facility] Comment on above: Result Comment: This test is not yet approved or cleared by the [place] FDA. When there are no FDA-approved or cleared tests available, and other criteria are met, FDA can make tests available under an emergency access mechanism called an Emergency Use Authorization (EUA). The EUA for this test is supported by the Casting And Curing Operator of Health and Human Service's (HHS's) [...] consistent with SARS-CoV-2. Performed By: #### [facility] ####[facility] [id number] [place], [place] [address]SgAmarjit Brennan Cardiovascular Lab Reporton 11-09-2021 Cardiovascular Lab Report [facility] MR #: [id number] Department of Physician: Lalito Joshi MD Medicine Service Date: 11/09/2021 Division of Birthdate: 1955 Cardiology Room #: [facility] Cardiovascular Services [facility] [address] [place] [address] Cardiovascular Laboratory Report LOOP IMPLANT PROCEDURE NOTE [...] the sternum on the left using the [place] Zingku tool. The loop recorder was then injected [...] observed. LOOP details: Device Model: M301 Serial#: [id number] Sensin.16mV. IMPRESSION: Successful placement of LOOP implant with excellent sensing parameters. RECOMMENDATIONS: 1. Occlusive dressing to be changed after 7 days. 2. Do not wet the incision. Lalito Joshi MD Cardiac Electrophysiology. Electronically Signed by: Lalito Joshi MD 11/10/2021 11:10 A Lalito Joshi MD Date Dict: 11/09/2021/08:45 A/Lalito Joshi MD Date Trans: 11/09/2021 11:32 A/mmo [id number] cc: Radha Burris M.D. [address] [place] [address] Normal The [facility] POC SARS COV2 IDon 2 SARS-CoV-2 (COVID-19) RNA MIKE+probe Ql (Unsp spec) Negative Normal NEGATIVE The [facility] Comment on above: Result Comment: ID [...] of Accreditation. Performed By: #### 5 6101, 68766 #### [facility] [address] [place] [address], [facility] BNPon 10-03-2021 Natriuretic peptide B (Bld) [Mass/Vol] 75.0 pg/mL Normal <=900.0 [facility] Comment on above: Performed By: #### H STROPN #### [facility] [address] [address] [address] Kulwant Brennan CARDIAC MAYELIN ADMITon 022 CK [Catalytic activity/Vol] 142 U/L Normal 39-308 [facility] Comment on above: Performed By: #### H STROPN #### [facility] [address] [address] [address] Kulwant Brennan CK.MB [Mass/Vol] 1.15 ng/mL Normal <=3.60 [facility] Comment on above: Performed By: #### H STROPN #### [facility] [address] [place] [address] Dr. Kulawnt Brennan HSTROP 4.0 pg/mL Normal 4.0-76.1 [facility] Comment on above: Result Comment: CUT- OFF POINTS HAVE BEEN ESTABLISHED BASED ON THE FOURTH UNIVERSAL DEFINITIONS OF MYOCARDIAL INFARCTION. THE UPPER REFERENCE LIMIT (URL) OF TROPONIN, DEFINED THE 99TH PERCENTILE OF cTnI DISTRIBUTION IN A REFERENCE POPULATION, HAS BEEN CONFIRMED THE DECISION THRESHOLD FOR [place] DIAGNOSIS. Performed By: #### H STROPN #### [facility] [address] [place] [address] Dr. Kulwant Brennan EFRAIN 57 ng/mL Normal 16-96 [facility] Comment on above: Performed By: #### H STROPN #### [facility] [address] [place] [address] Dr. Kulwant Brennan CBC AUTO DIFFon 10-03-2021 BASO # 0.0 103/ul Normal 0.0-0.1 [facility] Comment on above: Performed By: #### H STROPN #### [facility] [address] [place] [address] Dr. Kulwant Brennan Basophils/100 WBC (Bld) 0.4 % Normal 0.2-2.0 [facility] Comment on above: Performed By: #### H STROPN #### [facility] [address] [place] [address] Dr. Kulwant Brennan EO # 0.2 103/ul Normal 0.0-0.7 [facility] Comment on above: Performed By: #### H STROPN #### [facility] [address] [place] [address] Dr. Kulwant Brennan Eosinophils/100 WBC (Bld) 2.6 % Normal 0.9-7.0 [facility] Comment on above: Performed By: #### H STROPN #### [facility] [address] [place] [address] Dr. Kulwant Brennan Erythrocyte distribution width (RBC) [Ratio] 14.6 % Normal 11.0-15.0 [facility] Comment on above: Performed By: #### H STROPN #### [facility] [address] [place] [address] Dr. Kulwant Brennan Hematocrit (Bld) [Volume fraction] 43.0 % Normal 42.0-54.0 [facility] Comment on above: Performed By: #### H STROPN #### [facility] [address] [place] [address] Dr. Kulwant Brennan Hemoglobin (Bld) [Mass/Vol] 13.6 g/dL Critically low 14.0-18.0 [facility] Comment on above: Performed By: #### H STROPN #### [facility] [address] [place] [address] Dr. Kulwant Brennan IG # 0.03 10e3/ul Normal 0.00-0.03 [facility] Comment on above: Performed By: #### H STROPN #### [facility] [address] [place] [address] Dr. Kulwant Brennan IG % 0.4 % Normal 0.0-0.5 [facility] Comment on above: Performed By: #### H STROPN #### [facility] [address] [place] [address] Dr. Kulwant Bernnan LYMPH # 1.8 103/ul Normal 1.2-3.8 [facility] Comment on above: Performed By: #### H STROPN #### [facility] [address] [place] [address] Dr. Kulwant Brennan Lymphocytes/100 WBC (Bld) 25.3 % Normal 20.5-60.0 [facility] Comment on above: Performed By: #### H STROPN #### [facility] [address] [place] [address] Dr. Kulwant Brennan MANUAL DIFF REQ NO Normal [facility] Comment on above: Performed By: #### H STROPN #### [facility] [address] [place] [address] Dr. Kulwant Brennan MCH (RBC) [Entitic mass] 27.1 pg Normal 25.9-34.0 [facility] Comment on above: Performed By: #### H STROPN #### [facility] [address] [place] [address] Dr. Kulwant Brennan MCHC (RBC) [Mass/Vol] 31.6 g/dL Normal 29.9-35.2 [facility] Comment on above: Performed By: #### H STROPN #### [facility] [address] [place] [address] Dr. Kulwant Brennan MCV (RBC) [Entitic vol] 85.8 fL Normal 80.0-94.0 [facility] Comment on above: Performed By: #### H STROPN #### [facility] [address] [place] [address] Dr. Kulwant Brennan MONO # 0.8 103/ul Normal 0.3-0.8 [facility] Comment on above: Performed By: #### H STROPN #### [facility] [address] [place] [address] Dr. Kulwant Brennan Monocytes/100 WBC (Bld) 11.9 % Normal 1.7-12.0 [facility] Comment on above: Performed By: #### H STROPN #### [facility] [address] [place] [address] Dr. Kulwant Brennan NEUT # 4.1 103/ul Normal 1.4-6.5 [facility] Comment on above: Performed By: #### H STROPN #### [facility] [address] [place] [address] Dr. Kulwant Brennan Neutrophils/100 WBC (Bld) 59.4 % Normal 43.0-75.0 [facility] Comment on above: Performed By: #### H STROPN #### [facility] [address] [address] [address] Kulwant Brennan Platelet mean volume (Bld) [Entitic vol] 9.8 fL Normal 9.5-13.5 [facility] Comment on above: Performed By: #### H STROPN #### [facility] [address] [address] [address] Kulwant Brennan PLT 201 103/ul Normal 150-450 [facility] Comment on above: Performed By: #### H STROPN #### [facility] [address] [address] [address] Kulwant Brennan RBC 5.01 106/ul Normal 4.70-6.10 [facility] Comment on above: Performed By: #### H STROPN #### [facility] [address] [address] [address] Kulwant Brennan WBC 7.0 103/ul Normal 4.0-11.0 [facility] Comment on above: Performed By: #### H STROPN #### [facility] [address] [address] [address] HEAD WO CONon [...] DONNELL DU Date: 2021-10-03 11:41 Normal [facility] CTA CHEST WO W CONon 022 [...] by: DONNELL DU Date: 2021-10-03 11:50 Normal [facility] ER URINE PROFILEon 2 Bilirubin Ql (U) Negative Normal NEGATIVE [facility] Comment on above: Performed By: #### H STROPN #### [facility] [address] [place] [address] Dr. Kulwant Brennan Clarity (U) CLEAR Normal CLEAR [facility] Comment on above: Performed By: #### H STROPN #### [facility] [address] [address] [address] Kulwant Brennan Color (U) LT. YELLOW Normal YELLOW [facility] Comment on above: Performed By: #### H STROPN #### [facility] [address] [address] [address] Kulwant Brennan ERUAHD A micrscopic examina tion will be performed if indicated. Normal [facility] Comment on above: Performed By: #### H STROPN #### [facility] [address] [address] [address] Kulwant Brennan Glucose Ql (U) Negative Normal NEGATIVE [facility] Comment on above: Performed By: #### H STROPN #### [facility] [address] [address] [address] Kulwant Brennan Hemoglobin Ql (U) Negative Normal NEGATIVE [facility] Comment on above: Performed By: #### H STROPN #### [facility] [address] [address] [address] Kulwant Brennan Ketones Ql (U) Negative Normal NEGATIVE [facility] Comment on above: Performed By: #### H STROPN #### [facility] [address] [address] [address] Kulwant Brennan LEUKOCYTES Negative Normal NEGATIVE [facility] Comment on above: Performed By: #### H STROPN #### [facility] [address] [address] [address] Kulwant Brennan Nitrite Ql (U) Negative Normal NEGATIVE [facility] Comment on above: Performed By: #### H STROPN #### [facility] [address] [address] [address] Kulwant Brennan pH (U) 5.5 [pH] Normal 5-9 [facility] Comment on above: Performed By: #### H STROPN #### [facility] [address] [address] [address] Kulwant Brennan SPEC GRAVITY 1.025 Normal 1.005-<=1. 025 [facility] Comment on above: Performed By: #### H STROPN #### [facility] [address] [address] [address] Kulwant Brennan UA PROTEIN Negative Normal NEGATIVE/ TRACE [facility] Comment on above: Performed By: #### H STROPN #### [facility] [address] [place] [address] Dr. Kulwant Brennan UR MICRO IND NOT INDICATED Normal [facility] Comment on above: Performed By: #### H STROPN #### [facility] [address] [address] [address] Kulwant Brennan Urobilinogen Qn (U) 0.2 {Luis'U}/dL Normal 0.2 - 1. 0 [facility] Comment on above: Performed By: #### H STROPN #### [facility] [address] [place] [address] Dr. Kulwant Brennan PROF 14(COMP METB)on 022 Albumin [Mass/Vol] 3.9 g/dL Normal 3.4-5.0 [facility] Comment on above: Performed By: #### H STROPN #### [facility] [address] [place] [address] Dr. Kulwant Brennan Albumin/Globulin [Mass ratio] 1.0 {ratio} Normal [facility] Comment on above: Performed By: #### H STROPN #### [facility] [address] [place] [address] Dr. Kulwant Brennan ALP [Catalytic activity/Vol] 59 U/L Normal 46-116 [facility] Comment on above: Performed By: #### H STROPN #### [facility] [address] [place] [address] Dr. Kulwant Brennan ALT [Catalytic activity/Vol] 30 U/L Normal 16-63 [facility] Comment on above: Performed By: #### H STROPN #### [facility] [address] [place] [address] Dr. Kulwant Brennan Anion gap [Moles/Vol] 13.4 mmol/L Normal [facility] Comment on above: Performed By: #### H STROPN #### [facility] [address] [place] [address] Dr. Kulwant Brennan AST [Catalytic activity/Vol] 14 U/L Critically low 15-37 [facility] Comment on above: Performed By: #### H STROPN #### [facility] [address] [place] [address] Dr. Kulwant Brennan Bilirubin [Mass/Vol] 0.6 mg/dL Normal 0.2-1.0 [facility] Comment on above: Performed By: #### H STROPN #### [facility] [address] [address] [address] Kulwant Brennan Calcium [Mass/Vol] 7.6 mg/dL Critically low 8.5-10.1 [facility] Comment on above: Performed By: #### H STROPN #### [facility] [address] [address] [address] Kulwant Brennan Chloride [Moles/Vol] 107 mmol/L Normal 98-107 [facility] Comment on above: Performed By: #### H STROPN #### [facility] [address] [address] [address] Kulwant Brennan CO2 [Moles/Vol] 24.4 mmol/L Normal 21.0-32.0 [facility] Comment on above: Performed By: #### H STROPN #### [facility] [address] [address] [address] Kulwant Brennan Creatinine [Mass/Vol] 1.36 mg/dL Critically high 0.70-1.30 [facility] Comment on above: Performed By: #### H STROPN #### [facility] [address] [address] [address] Kulwant Brennan EGFR-AF TRISTANIAN >60 Normal >=60 [facility] Comment on above: Performed By: #### H STROPN #### [facility] [address] [address] [address] Kulwant Brennan EGFR-NON AF TRISTANIAN 52 mL/min/1.73m2 Critically low >=60 [facility] Comment on above: Performed By: #### H STROPN #### [facility] [address] [address] [address] Kulwant Brennan Globulin (S) [Mass/Vol] 3.8 g/dL Normal [facility] Comment on above: Performed By: #### H STROPN #### [facility] [address] [address] [address] Kulwant Brennan Glucose [Mass/Vol] 99 mg/dL Normal 74-106 [facility] Comment on above: Performed By: #### H STROPN #### [facility] [address] [address] [address] Kulwant Brennan Potassium [Moles/Vol] 3.8 mmol/L Normal 3.5-5.1 [facility] Comment on above: Performed By: #### H STROPN #### [facility] [address] [address] [address] Kulwant Brennan Protein [Mass/Vol] 7.7 g/dL Normal 6.4-8.2 [facility] Comment on above: Performed By: #### H STROPN #### [facility] [address] [address] [address] Kulwant Brennan Sodium [Moles/Vol] 141 mmol/L Normal 136-145 [facility] Comment on above: Performed By: #### H STROPN #### [facility] [address] [address] [address] Kulwant Brennan Urea nitrogen [Mass/Vol] 24.0 mg/dL Critically high 7.0-18.0 [facility] Comment on above: Performed By: #### H STROPN #### [facility] [address] [address] [address] Kulwant Brennan Urea nitrogen/Creatinine [Mass ratio] 17.6 mg/mg Normal [facility] Comment on above: Performed By: #### H STROPN #### [facility] [address] [address] [address] Kulwant Brennan PROTIMEon 10-03-2021 INR Coag (PPP) [Relative time] 1.04 {INR} Normal [facility] Comment on above: Performed By: #### P T, PTT ####[facility] [id number] [place] [address]Dr. Kulwant Brennan INR GUIDELINES SEE BELOW Normal [facility] Comment on above: Result Comment: HAYDEE RED INR: 2.0 - 3.0 CONDITIONS NOT LISTED BELOW 2.5 - 3.5 FOR PROSTHETIC HEART VALVE REPLACEMENT 2.5 - 3.5 RECURRENT THROMBOSIS Performed By: #### P T, PTT ####[facility] [address] [place] [address]Dr. Kulwant Brennan PT Coag (PPP) [Time] 11.2 s Normal 9.0-11.6 [facility] Comment on above: Performed By: #### P T, PTT ####[facility] [id number] [place], [place] [address]BbDr. Kulwant Brennan PTTon 10-03-2021 aPTT Coag (Bld) [Time] 33.1 s Normal 22.3-36.2 [facility] Comment on above: Performed By: #### P T, PTT ####[facility] [address] [place], [place] [address]UlAmarjit Brennan TROPONIN, HIGH SENSITIVITYon 10-03-2021 HSTROP 5.1 pg/mL Normal 4.0-76.1 [facility] Comment on above: Result Comment: CUT- OFF POINTS HAVE BEEN ESTABLISHED BASED ON THE FOURTH UNIVERSAL DEFINITIONS OF MYOCARDIAL INFARCTION. THE UPPER REFERENCE LIMIT (URL) OF TROPONIN, DEFINED THE 99TH PERCENTILE OF cTnI DISTRIBUTION IN A REFERENCE POPULATION, HAS BEEN CONFIRMED THE DECISION THRESHOLD FOR [place] DIAGNOSIS. Performed By: #### H STROPN #### [facility] [address] [place], [place] [address] Dr. Kulwant Brennan VC VENOUS REFLUX RIOS LMTon 0 10-03-2021 VC VENOUS REFLUX RIOS LMT Patient: YOLI ANTUNEZ Exam Date: 10/03/2021 : 1955 Gender:M Ordering : YANDEL SHEN Admission #: [id number] Family : Order #: [id number] CLICK HERE TO VIEW EXAM RADIOLOGY REPORT [...] chronic thrombus visualized Compressibility: Normal Flow: Normal Transfer Agent: Dist/med off PTV 2 mm, 0s reflux; [...] Du M.D. on 10/04/2021 at 12:09 Normal [facility] XR CHEST 1 Von 10-03-2021 XR [...] LUZ ELENA EMERY Date: 2021-10-03 13:00 Normal [facility] ANAon 09-29-2021 KYLE PATTERN NUCLEOLAR Normal [facility] Comment on above: Result Comment: The [...] authority. Performed By: #### 1 0196 #### [facility] [address] KYLE SCREEN 1:40 Normal <1:40,1:40 [facility] Comment on above: Result Comment: Test performed using KHALIDA IFA KYLE Hep-2 Test, a pre-standardized assay designed for the qualitative and semi-quantitative detection of antinuclear antibodies. Performed By: #### 1 0196 #### [facility] [address] C REACTIVE PROTEINon 022 CRP [Mass/Vol] 3.1 mg/L Normal 0.0-7.0 [facility] Comment on above: Performed By: #### 5 6101, 18159 #### [facility] [address] [place] PEPTIDE [place] [id number] 09-29-2021 CYCLIC CIT PEP 4 Units Normal 0-19 [facility] Comment on above: Result Comment: INTE [...] be monitored and testing repeated. Performed By: [employer] [address] [place] [address] [address] Miller Operator: Jaz Villareal MD RHEUMATOID FACTOR SERUMon RA <20 Normal 0-20 [facility] Comment on above: Performed By: #### 5 6101, 42704 #### [facility] [address] [facility]. [address] SEDIMENTATION RATEon 022 SED RATE 12 mm/hr High 0-10 [facility] Comment on above: Performed By: #### 5 6506 #### [facility] [address] [facility]. [address] US ANDREW DOP LEG BILon 022 US ANDREW DOP LEG RIOS EXAMINATION: US ANDRWE DOP LEG RIOS HISTORY: Pain in right [...] ERICK DEL ANGEL Date: 2021-09-27 16:12 Normal [facility] CT Head or Brain w/o Contras [...] by Hollis Cadet on 09/11/2021 1546 Normal [facility] Comprehensive Metabolic Pane julian 06-27-2021 Albumin [Mass/Vol] 4.9 g/dL Normal 3.6-5.1 [facility] Comment on above: Performed By: #### C MP #### [facility] [address], [place] [id number] Albumin/Globulin [Mass ratio] 1.8 {ratio} Normal 1.0-2.5 [facility] Comment on above: Performed By: #### C MP #### [facility] [address], [place] [id number] ALP [Catalytic activity/Vol] 83 U/L Normal 40-129 [facility] Comment on above: Performed By: #### C MP #### [facility] [address], [place] [id number] ALT [Catalytic activity/Vol] 20 U/L Normal 9-46 [facility] Comment on above: Result Comment: 03/22 Female reference range changed. Performed By: #### C MP #### [facility] [address], [place] [id number] Anion gap [Moles/Vol] 18 mmol/L Normal 12-20 [facility] Comment on above: Result Comment: Effe ctive 04/27/2019 reference range changed. Performed By: #### C MP #### [facility] [address], [place] [id number] AST [Catalytic activity/Vol] 18 U/L Normal 10-40 [facility] Comment on above: Performed By: #### C MP #### [facility] [address], [place] [id number] Bilirubin [Mass/Vol] 0.33 mg/dL Normal 0.30-1.20 [facility] Comment on above: Performed By: #### C MP #### [facility] [address], [place] [id number] BUN/CREA 20 Ratio Normal 6-22 [facility] Comment on above: Performed By: #### C MP #### [facility] [address], [place] [id number] Calcium [Mass/Vol] 8.4 mg/dL Low 8.6-10.2 [facility] Comment on above: Performed By: #### C MP #### [facility] [address], [place] [id number] Chloride [Moles/Vol] 106 mmol/L Normal 98-107 [facility] Comment on above: Performed By: #### C MP #### [facility] [address], [place] [id number] CO2 [Moles/Vol] 24 mmol/L Normal 20-31 [facility] Comment on above: Performed By: #### C MP #### [facility] [address], [place] [id number] Creatinine [Mass/Vol] 1.4 mg/dL Normal 0.7-1.4 [facility] Comment on above: Performed By: #### C MP #### [facility] [address], [place] [id number] eGFRAA 59 mL/min/1.73m2 Low >60 [facility] Comment on above: Performed By: #### C MP #### [facility] [address], [place] [id number] eGFRNAA 49 mL/min/1.73m2 Low >60 [facility] Comment on above: Performed By: #### C MP #### [facility] [address], [place] [id number] Globulin (S) [Mass/Vol] 2.7 g/dL Normal 1.9-3.7 [facility] Comment on above: Performed By: #### C MP #### [facility] [address], [place] [id number] Glucose [Mass/Vol] 98 mg/dL Normal 65-99 [facility] Comment on above: Result Comment: For FASTING Glucose --- ADA reference ranges: Normal 65-99 mg/dl Prediabetes 100-125 Diabetes >/= 126 Performed By: #### C MP #### [facility] [address], [place] [id number] Potassium [Moles/Vol] 5.0 mmol/L Normal 3.5-5.5 [facility] Comment on above: Performed By: #### C MP #### [facility] [address], [place] [id number] Protein [Mass/Vol] 7.6 g/dL Normal 6.1-8.1 [facility] Comment on above: Performed By: #### C MP #### [facility] [address], [place] [id number] Sodium [Moles/Vol] 143 mmol/L Normal 135-146 [facility] Comment on above: Performed By: #### C MP #### [facility] [address], [place] [id number] Urea nitrogen [Mass/Vol] 30 mg/dL High 7-25 [facility] Comment on above: Performed By: #### C MP #### [facility] [address], [place] [id number] Magnesiumon 06-07-2021 Magnesium [Mass/Vol] 2.0 mg/dL Normal 1.5-2.3 [facility] Special[facility] Comment on above: Performed By: #### V ITD, MG, PHOS #### [facility] [address], [place] [id number] Parathyroid Hormone, Intacto n 06-07-2021 PTH 12.53 pg/mL Low 16.00-65.0 0 [facility] Comment on above: Performed By: #### P TH* #### [facility] [address], [place] [id number] Phosphoruson 06-07-2021 Phosphate [Mass/Vol] 4.3 mg/dL Normal 2.2-4.4 [facility] Special[facility] Comment on above: Performed By: #### V ITD, MG, PHOS #### [facility] [address], [place] [id number] Q - CALCIUM,IONIZEDon 2021 CALCIUM, IONIZED 4.0 mg/dL Low 4.8-5.6 [facility] Comment on above: Order Comment: [facility] performed at: QPT, [facility], [address], [address] [place], [address], [place] [place] Operator: Janes Vasquez MDQuest Collection Date/Time: [id number] Results Received Date/Time: [id number] Reported Date/Time: Performed By: #### C FILIBERTO, CBCAD, TSH #### [facility] [address], [place] [id number] Vitamin D 25-OHon 06-07-2021 VIT D 25 OH 27 ng/ml Low >29 [facility] Comment on above: Result Comment: Merlene min D Status Deficiency <20 ng/mL Insufficiency 20-29 ng/mL Optimal 30-100 ng/mL Possible Toxicity >=150 ng/mL Performed By: #### V ITD, MG, PHOS #### [facility] [address], [place] [id number] Complete Blood Count with Au to Diffon 06-06-2021 Basophils (Bld) [#/Vol] 0.04 10*3/uL Normal 0.00-0.20 [facility] Comment on above: Performed By: #### C MP, CBCAD, TSH #### [facility] [address], [place] [id number] Basophils/100 WBC (Bld) 0.6 % Normal [facility] Comment on above: Performed By: #### C MP, CBCAD, TSH #### [facility] [address], [place] [id number] Eosinophils (Bld) [#/Vol] 0.28 10*3/uL Normal 0.02-0.50 [facility] Comment on above: Performed By: #### C MP, CBCAD, TSH #### [facility] [address], [place] [id number] Eosinophils/100 WBC (Bld) 4.1 % Normal [facility] Comment on above: Performed By: #### C FILIBERTO CBCAD, TSH #### [facility] [address], [place] [id number] Erythrocyte distribution width (RBC) [Ratio] 14.5 % Normal 11.0-15.0 [facility] Comment on above: Performed By: #### C FILIBERTO, CBCAD, TSH #### [facility] [address], [place] [id number] Hematocrit (Bld) [Volume fraction] 43.0 % Normal 38.5-50.0 [facility] Comment on above: Performed By: #### C FILIBERTO, CBCAD, TSH #### [facility] [address], [place] [id number] Hemoglobin (Bld) [Mass/Vol] 13.7 g/dL Normal 13.0-17.1 [facility] Comment on above: Performed By: #### C FILIBERTO CBCAD, TSH #### [facility] [address], [place] [id number] Lymphocytes (Bld) [#/Vol] 1.6 10*3/uL Normal 0.9-3.9 [facility] Comment on above: Performed By: #### C FILIBERTO, CBCAD, TSH #### [facility] [address], [place] [id number] Lymphocytes/100 WBC (Bld) 22.6 % Normal [facility] Comment on above: Performed By: #### C FILIBERTO CBCAD, TSH #### [facility] [address], [place] [id number] MCH (RBC) [Entitic mass] 26.1 pg Low 27.0-33.0 [facility] Comment on above: Performed By: #### C FILIBERTO, CBCAD, TSH #### [facility] [address], [place] [id number] MCHC (RBC) [Mass/Vol] 31.9 g/dL Low 32.0-36.0 [facility] Comment on above: Performed By: #### C FILIBERTO, CBCAD, TSH #### [facility] [address], [place] [id number] MCV (RBC) [Entitic vol] 82 fL Normal 80-100 [facility] Comment on above: Performed By: #### C MP, CBCAD, TSH #### [facility] [address], [place] [id number] Monocytes (Bld) [#/Vol] 0.7 10*3/uL Normal 0.2-0.9 [facility] Comment on above: Performed By: #### C MP, CBCAD, TSH #### [facility] [address], [place] [id number] Monocytes/100 WBC (Bld) 10.1 % Normal [facility] Comment on above: Performed By: #### C MP, CBCAD, TSH #### [facility] [address], [place] [id number] Neutrophils (Bld) [#/Vol] 4.3 10*3/uL Normal 1.5-7.8 [facility] Comment on above: Performed By: #### C MP, CBCAD, TSH #### [facility] [address], [place] [id number] Neutrophils/100 WBC (Bld) 62.0 % Normal [facility] Comment on above: Performed By: #### C MP, CBCAD, TSH #### [facility] [address], [place] [id number] Platelet mean volume (Bld) [Entitic vol] 10.90 fL Normal 7.50-12.50 [facility] Comment on above: Performed By: #### C MP, CBCAD, TSH #### [facility] [address], [place] [id number] Platelets (Bld) [#/Vol] 250 10*3/uL Normal 140-400 [facility] Comment on above: Performed By: #### C MP, CBCAD, TSH #### [facility] [address], [place] [id number] RBC (Bld) [#/Vol] 5.25 10*6/uL Normal 4.20-5.80 [facility] Special[facility] Comment on above: Performed By: #### C FILIBERTO, CBCAD, TSH #### [facility] [address], [place] [id number] RDW-SD 43.3 fL Normal 37.0-50.0 [facility] Comment on above: Performed By: #### C MP, CBCAD, TSH #### [facility] [address], [place] [id number] WBC (Bld) [#/Vol] 6.9 10*3/uL Normal 3.8-11.0 [facility] Comment on above: Performed By: #### C MP, CBCAD, TSH #### [facility] [address], [place] [id number] Comprehensive Metabolic Pane julian 06-06-2021 Albumin [Mass/Vol] 4.7 g/dL Normal 3.6-5.1 [facility] Comment on above: Performed By: #### C MP, CBCAD, TSH #### [facility] [address], [place] [id number] Albumin/Globulin [Mass ratio] 1.8 {ratio} Normal 1.0-2.5 [facility] Comment on above: Performed By: #### C MP, CBCAD, TSH #### [facility] [address], [place] [id number] ALP [Catalytic activity/Vol] 87 U/L Normal 40-129 [facility] Comment on above: Performed By: #### C MP, CBCAD, TSH #### [facility] [address], [place] [id number] ALT [Catalytic activity/Vol] 22 U/L Normal 9-46 [facility] Comment on above: Result Comment: 03/22 Female reference range changed. Performed By: #### C MP, CBCAD, TSH #### [facility] [address], [place] [id number] Anion gap [Moles/Vol] 20 mmol/L Normal 12-20 [facility] Comment on above: Result Comment: Effe ctive 04/27/2019 reference range changed. Performed By: #### C MP, CBCAD, TSH #### [facility] [address], [place] [id number] AST [Catalytic activity/Vol] 18 U/L Normal 10-40 [facility] Comment on above: Performed By: #### C MP, CBCAD, TSH #### [facility] [address], [place] [id number] BUN/CREA 19 Ratio Normal 6-22 [facility] Comment on above: Performed By: #### C MP, CBCAD, TSH #### [facility] [address], [place] [id number] Calcium [Mass/Vol] 7.4 mg/dL Low 8.6-10.2 [facility] Comment on above: Performed By: #### C MP, CBCAD, TSH #### [facility] [address], [place] [id number] Chloride [Moles/Vol] 106 mmol/L Normal 98-107 [facility] Comment on above: Performed By: #### C MP, CBCAD, TSH #### [facility] [address], [place] [id number] CO2 [Moles/Vol] 20 mmol/L Normal 20-31 [facility] Comment on above: Performed By: #### C MP, CBCAD, TSH #### [facility] [address], [place] [id number] Creatinine [Mass/Vol] 1.5 mg/dL High 0.7-1.4 [facility] Comment on above: Performed By: #### C MP, CBCAD, TSH #### [facility] [address], [place] [id number] eGFRAA 59 mL/min/1.73m2 Low >60 [facility] Comment on above: Performed By: #### C MP, CBCAD, TSH #### [facility] [address], [place] [id number] eGFRNAA 48 mL/min/1.73m2 Low >60 [facility] Special[facility] Comment on above: Performed By: #### C MP, CBCAD, TSH #### [facility] [address], [place] [id number] Globulin (S) [Mass/Vol] 2.6 g/dL Normal 1.9-3.7 [facility] [place] [facility] Comment on above: Performed By: #### C MP, CBCAD, TSH #### [facility] [address], [place] [id number] Glucose [Mass/Vol] 112 mg/dL High 65-99 [facility] Comment on above: Result Comment: For FASTING Glucose --- ADA reference ranges: Normal 65-99 mg/dl Prediabetes 100-125 Diabetes >/= 126 Performed By: #### C MP, CBCAD, TSH #### [facility] [address], [place] [id number] Potassium [Moles/Vol] 4.3 mmol/L Normal 3.5-5.5 [facility] Comment on above: Performed By: #### C MP, CBCAD, TSH #### [facility] [address], [place] [id number] Protein [Mass/Vol] 7.3 g/dL Normal 6.1-8.1 [facility] [place] [facility] Comment on above: Performed By: #### C MP, CBCAD, TSH #### [facility] [address], [place] [id number] Sodium [Moles/Vol] 142 mmol/L Normal 135-146 [facility] Comment on above: Performed By: #### C MP, CBCAD, TSH #### [facility] [address], [place] [id number] TBIL <0.3 Normal [facility] Comment on above: Performed By: #### C MP, CBCAD, TSH #### [facility] [address], [place] [id number] Urea nitrogen [Mass/Vol] 27 mg/dL High 7-25 [facility] Comment on above: Performed By: #### C MP, CBCAD, TSH #### [facility] [address], [place] [id number] Q - TROPONIN Ion 06-06-2021 TROPONIN I 3 ng/L Normal < OR = 47 [facility] Comment on above: Order Comment: [facility] performed at: QPT, [facility], [address], [address] [place] [address], [place], [address], Slab Miller Operator: Janes Vasquez MDQuest Collection Date/Time: [id number] Results Received Date/Time: [id number] Reported Date/Time: Result Comment: In accord with published recommendations, serial testing of troponin I at intervals of 2 to 4 hours for up to 12 to 24 hours is suggested in order to corroborate a single troponin I result. An elevated troponin alone is not sufficient to make the diagnosis of NV. Performed By: #### C MP, CBCAD, TSH #### [facility] [address], [place] [id number] TSHon 06-06-2021 TSH 0.917 uIU/mL Normal 0.400-4.50 0 [facility] Comment on above: Performed By: #### C MP, CBCAD, TSH #### [facility] [address], [place] [id number] CT Chest WO contraston 05-01 IMPRESSION: 1. Mild bronchiectasis in both lower lobes, the right middle lobe and the lingula, consistent with remote or chronic airways inflammation. In this distribution, sequelae of chronic aspiration pneumonitis must be considered. A type III hiatal hernia is noted. 2. Fusiform dilation of the ascending thoracic aorta, stable in appearance since the exam dated 01/05/2021. Medicare Compliance Auditor: TRACI Transcribe Date/Time: May 01 2021 8:27A Dictated by : MASSIMO OAKES MD This examination was interpreted and the report reviewed and electronically signed by: MASSIMO OAKES MD on May 01 2021 8:49AM [facility] DIVISION OF RADIOLOGY * * *Final Report* * * DATE OF EXAM: May 01 2021 8:21AM [facility] 0541 - CT CHEST WO IVCON [...] A few calcified splenic granulomata are noted. Recovery Unit Operator (topogram) images: No additional findings. DIVISION OF RADIOLOGY Provider, [facility] - 05/01/2021 * * *Final Report* * * DATE OF EXAM: May 01 2021 8:21AM [facility] 0541 - CT CHEST WO IVCON [...] A few calcified splenic granulomata are noted. Recovery Unit Operator (topogram) images: No additional findings. IMPRESSION IMPRESSION: 1. Mild bronchiectasis in both lower lobes, the right middle lobe and the lingula, consistent with remote or chronic airways inflammation. In this distribution, sequelae of chronic aspiration pneumonitis must be considered. A type III hiatal hernia is noted. 2. Fusiform dilation of the ascending thoracic aorta, stable in appearance since the exam dated 01/05/2021. Medicare Compliance Auditor: PSCB Transcribe Date/Time: May 01 2021 8:27A Dictated by : MASSIMO OAKES MD This examination was interpreted and the report reviewed and electronically signed by: MASSIMO OAKES MD on May 01 2021 8:49AM EST [facility] Radiology Study observation (narrative) [facility] CT Chest WO contrastOrdered By: [facility] Provider on 05-01-2021 [facility] Creatinineon 04-28-2018 Creatinine mass conc 1.47 mg/dL High 0.50-1.30 [facility] Comment on above: Performed By: #### 1 [id number] ####[facility] [address] [place] [address] GFR/1.73 sq M.predicted MDRD vol rate/area 48 mL/min/{1.73_m2} Normal [facility] Comment on above: Result Comment: Inte rpretation for Chronic Kidney Disease:Stages 1&2 >60 Healthy or potential kidney damage.Mild decrease of GFR.Stage 3 30-59 Moderate decrease of GFR.Stage 4 15-29 Severe decrease of GFR.Stage 5 <15 Kidney failure or on dialysis. Performed By: #### 1 [id number] ####[facility] [address] [place] [address] Electrolyte Panelon 04-28-19 19 Anion gap 3 molar conc 10 mmol/L Normal 10-20 [facility] Comment on above: Performed By: #### 1 [id number] ####[facility] [address] [place] [address] Chloride molar conc 110 mmol/L High 98-107 [facility] Comment on above: Performed By: #### 1 [id number] ####[facility] [address] [place] [address] HCO3 molar conc (Bld) 25 mmol/L Normal 21-32 [facility] Comment on above: Performed By: #### 1 [id number] ####[facility] [address] [place] [address] Potassium molar conc 4.2 mmol/L Normal 3.5-5.1 [facility] Comment on above: Performed By: #### 1 [id number] ####[facility] [address] [place] [address] Sodium molar conc 141 mmol/L Normal 136-145 [facility] Comment on above: Performed By: #### 1 [id number] ####[facility] [address] [place] [address] Urea Nitrogenon 04-28-2018 Urea nitrogen mass conc 32 mg/dL High 6-23 [facility] Comment on above: Performed By: #### 1 [id number] ####[facility] [address] [place] [address] Vital Signs Date Time Vital Sign Value Performing Clinician Facility 11-10-2024 11:21-0400 Body height 198.1 cm Abby Bernstein APRN.FUEL TECHNICIAN Work Phone: [facility] 11-10-2024 11:21-0400 Body mass index (BMI) [Ratio] 28.31 kg/m2 Abby Bernstein APRN.FUEL TECHNICIAN Work Phone: [facility] 11-10-2024 11:21-0400 Body weight 111.13 kg Abby Bernstein APRN.FUEL TECHNICIAN Work Phone: [facility] 11-10-2024 11:21-0400 Diastolic blood pressure 86 mm[Hg] Abby Bernstein APRN.FUEL TECHNICIAN Work Phone: [facility] 11-10-2024 11:21-0400 Heart rate 83 /min Abby Bernstein APRN.FUEL TECHNICIAN Work Phone: [facility] 11-10-2024 11:21-0400 SaO2% (BldA) [Mass fraction] 98 % Abby Bernstein APRN.FUEL TECHNICIAN Work Phone: [facility] 11-10-2024 11:21-0400 Systolic blood pressure 127 mm[Hg] Abby Bernstein PAPERHANGER.FUEL TECHNICIAN Work Phone: [facility] 10-29-2024 13:07-0400 Body height 198.1 cm Lalito Biedenbach DO Work Phone: [facility] 10-29-2024 13:07-0400 Body mass index (BMI) [Ratio] 28.89 kg/m2 Lalito Biedenbach DO Work Phone: [facility] 10-29-2024 13:07-0400 Body weight 113.4 kg Lalito Biedenbach DO Work Phone: [facility] 10-15-2024 14:39-0400 Body height 198.1 cm Lalito Biedenbach DO Work Phone: [facility] 10-15-2024 14:39-0400 Body mass index (BMI) [Ratio] 28.89 kg/m2 Lalito Biedenbach DO Work Phone: [facility] 10-15-2024 14:39-0400 Body weight 113.4 kg Lalito Biedenbach DO Work Phone: [facility] 09-22-2024 15:12-0400 Body height 198.1 cm Lalito Biedenbach DO Work Phone: [facility] 09-22-2024 15:12-0400 Body mass index (BMI) [Ratio] 28.89 kg/m2 Lalito Biedenbach DO Work Phone: [facility] 09-22-2024 15:12-0400 Body weight 113.4 kg Lalito Biedenbach DO Work Phone: [facility] 09-08-2024 14:29-0400 Body height 198.1 cm Lalito Biedenbach DO Work Phone: [facility] 09-08-2024 14:29-0400 Body mass index (BMI) [Ratio] 28.89 kg/m2 Lalito Biedenbach DO Work Phone: [facility] 09-08-2024 14:29-0400 Body weight 113.4 kg Lalito Burris DO Work Phone: [facility] 09-02-2024 14:53-0400 Body height 198.1 cm Shivani Adams RADIOLOGIC ELECTRONIC SPECIALIST Work Phone: [facility] 09-02-2024 14:53-0400 Body mass index (BMI) [Ratio] 28.98 kg/m2 Shivani Adams RADIOLOGIC ELECTRONIC SPECIALIST Work Phone: [facility] 09-02-2024 14:53-0400 Body temperature 98.91 [degF] Shivani Adams RADIOLOGIC ELECTRONIC SPECIALIST Work Phone: [facility] 09-02-2024 14:53-0400 Body weight 113.76 kg Shivani Adams RADIOLOGIC ELECTRONIC SPECIALIST Work Phone: [facility] 09-02-2024 14:53-0400 Diastolic blood pressure 70 mm[Hg] Shivani Adams RADIOLOGIC ELECTRONIC SPECIALIST Work Phone: [facility] 09-02-2024 14:53-0400 Heart rate 77 /min Shivani Adams RADIOLOGIC ELECTRONIC SPECIALIST Work Phone: [facility] 09-02-2024 14:53-0400 SaO2% (BldA) [Mass fraction] 98 % Shivani Adams RADIOLOGIC ELECTRONIC SPECIALIST Work Phone: [facility] 09-02-2024 14:53-0400 Systolic blood pressure 128 mm[Hg] Shivani Adams RADIOLOGIC ELECTRONIC SPECIALIST Work Phone: [facility] 08-21-2024 14:10-0400 Body mass index (BMI) [Ratio] 28.96 kg/m2 Radha Burris MD Work Phone: [facility] 08-21-2024 14:10-0400 Body temperature 99.1 [degF] Radha Burris MD Work Phone: [facility] 08-21-2024 14:10-0400 Body weight 113.67 kg Radha Burris MD Work Phone: [facility] 08-21-2024 14:10-0400 Diastolic blood pressure 84 mm[Hg] Radha Burris MD Work Phone: [facility] 08-21-2024 14:10-0400 Heart rate 76 /min Radha Burris MD Work Phone: [facility] 08-21-2024 14:10-0400 SaO2% (BldA) [Mass fraction] 96 % Radha Burris MD Work Phone: [facility] 08-21-2024 14:10-0400 Systolic blood pressure 132 mm[Hg] Radha Burris MD Work Phone: [facility] 08-19-2024 08:53-0400 Body height 198.1 cm Christopher Silvana DO Work Phone: [facility] 08-19-2024 08:53-0400 Body mass index (BMI) [Ratio] 28.08 kg/m2 Christopher Silvana DO Work Phone: [facility] 08-19-2024 08:53-0400 Body weight 110.22 kg Christopher Silvana DO Work Phone: [facility] 08-19-2024 08:53-0400 Diastolic blood pressure 90 mm[Hg] Christopher Silvana DO Work Phone: [facility] 08-19-2024 08:53-0400 Heart rate 80 /min Christopher Silvana DO Work Phone: [facility] 08-19-2024 08:53-0400 Systolic blood pressure 138 mm[Hg] Christopher Silvana DO Work Phone: [facility] 08-10-2024 09:48-0400 Body height 198.1 cm Latoya Redding MD Work Phone: [facility] 08-10-2024 09:48-0400 Body mass index (BMI) [Ratio] 29.7 kg/m2 Latoya Redding MD Work Phone: [facility] 08-10-2024 09:48-0400 Body weight 116.57 kg Latoya Redding MD Work Phone: [facility] 08-10-2024 09:48-0400 Diastolic blood pressure 68 mm[Hg] Latoya Redding MD Work Phone: [facility] 08-10-2024 09:48-0400 Heart rate 78 /min Latoya Redding MD Work Phone: [facility] 08-10-2024 09:48-0400 Respiratory rate 18 /min Latoya Redding MD Work Phone: [facility] 08-10-2024 09:48-0400 SaO2% (BldA) [Mass fraction] 96 % Latoya Redding MD Work Phone: [facility] 08-10-2024 09:48-0400 Systolic blood pressure 100 mm[Hg] Latoya Redding MD Work Phone: [facility] 07-06-2024 10:01-0400 Body height 198.1 cm Latoya Redding MD Work Phone: [facility] 07-06-2024 10:01-0400 Body mass index (BMI) [Ratio] 29.35 kg/m2 Latoya Redding MD Work Phone: [facility] 07-06-2024 10:01-0400 Body weight 115.21 kg Latoya Redding MD Work Phone: [facility] 07-06-2024 10:01-0400 Diastolic blood pressure 80 mm[Hg] Latoya Redding MD Work Phone: [facility] 07-06-2024 10:01-0400 Heart rate 77 /min Latoya Redding MD Work Phone: [facility] 07-06-2024 10:01-0400 Respiratory rate 16 /min Latoya Redding MD Work Phone: [facility] 07-06-2024 10:01-0400 SaO2% (BldA) [Mass fraction] 98 % Latoya Redding MD Work Phone: [facility] 07-06-2024 10:01-0400 Systolic blood pressure 114 mm[Hg] Latoya Redding MD Work Phone: [facility] 06-22-2024 13:10-0500 Body mass index (BMI) [Ratio] 29.19 kg/m2 Christopher Silvana DO Work Phone: [facility] 06-22-2024 13:10-0500 Body weight 114.58 kg Christopher Silvana DO Work Phone: [facility] 06-22-2024 13:10-0500 Diastolic blood pressure 90 mm[Hg] Christopher Silvana DO Work Phone: [facility] 06-22-2024 13:10-0500 Heart rate 91 /min Christopher Silvana DO Work Phone: [facility] 06-22-2024 13:10-0500 SaO2% (BldA) [Mass fraction] 98 % Christopher Silvana DO Work Phone: [facility] 06-22-2024 13:10-0500 Systolic blood pressure 128 mm[Hg] Christopher Silvana DO Work Phone: [facility] 06-09-2024 09:45-0500 Body mass index (BMI) [Ratio] 29.54 kg/m2 Eleonora Leo RADIOLOGIC ELECTRONIC SPECIALIST Work Phone: [facility] 06-09-2024 09:45-0500 Body temperature 95.9 [degF] Eleonora Leo RADIOLOGIC ELECTRONIC SPECIALIST Work Phone: [facility] 06-09-2024 09:45-0500 Body weight 115.94 kg Eleonora Leo RADIOLOGIC ELECTRONIC SPECIALIST Work Phone: [facility] 06-09-2024 09:45-0500 Diastolic blood pressure 80 mm[Hg] Eleonora Leo RADIOLOGIC ELECTRONIC SPECIALIST Work Phone: [facility] 06-09-2024 09:45-0500 Heart rate 67 /min Eleonora Hackenburg RADIOLOGIC ELECTRONIC SPECIALIST Work Phone: [facility] 06-09-2024 09:45-0500 SaO2% (BldA) [Mass fraction] 99 % Eleonora Leo RADIOLOGIC ELECTRONIC SPECIALIST Work Phone: [facility] 06-09-2024 09:45-0500 Systolic blood pressure 116 mm[Hg] Eleonora Leo RADIOLOGIC ELECTRONIC SPECIALIST Work Phone: [facility] 02-06-2024 08:51-0400 Body height 198.1 cm Radha Burris MD Work Phone: [facility] 02-06-2024 08:51-0400 Body mass index (BMI) [Ratio] 27.43 kg/m2 Radha Burris MD Work Phone: [facility] 02-06-2024 08:51-0400 Body weight 107.68 kg Radha Burris MD Work Phone: [facility] 02-06-2024 08:51-0400 Diastolic blood pressure 70 mm[Hg] Radha Burris MD Work Phone: [facility] 02-06-2024 08:51-0400 Heart rate 74 /min Radha Burris MD Work Phone: [facility] 02-06-2024 08:51-0400 SaO2% (BldA) [Mass fraction] 97 % Radha Burris MD Work Phone: [facility] 02-06-2024 08:51-0400 Systolic blood pressure 110 mm[Hg] Radha Burris MD Work Phone: [facility] 01-20-2024 16:04-0400 Body mass index (BMI) [Ratio] 27.04 kg/m2 Sofia Vigil RADIOLOGIC ELECTRONIC SPECIALIST Work Phone: [facility] 01-20-2024 16:04-0400 Body temperature 97.3 [degF] Sofia Vigil RADIOLOGIC ELECTRONIC SPECIALIST Work Phone: [facility] 01-20-2024 16:04-0400 Body weight 106.14 kg Sofia Vigil RADIOLOGIC ELECTRONIC SPECIALIST Work Phone: [facility] 01-20-2024 16:04-0400 Diastolic blood pressure 60 mm[Hg] Sofia Hellerk RADIOLOGIC ELECTRONIC SPECIALIST Work Phone: [facility] 01-20-2024 16:04-0400 Systolic blood pressure 108 mm[Hg] Sofia Vigil RADIOLOGIC ELECTRONIC SPECIALIST Work Phone: [facility] 01-13-2024 13:24-0400 Body height 198.1 cm Shivani Adams RADIOLOGIC ELECTRONIC SPECIALIST Work Phone: [facility] 01-13-2024 13:24-0400 Body mass index (BMI) [Ratio] 27.53 kg/m2 Shivani Adams RADIOLOGIC ELECTRONIC SPECIALIST Work Phone: [facility] 01-13-2024 13:24-0400 Body weight 108.05 kg Shivani Adams RADIOLOGIC ELECTRONIC SPECIALIST Work Phone: [facility] 01-13-2024 13:24-0400 Diastolic blood pressure 76 mm[Hg] Shivani Adams RADIOLOGIC ELECTRONIC SPECIALIST Work Phone: [facility] 01-13-2024 13:24-0400 Heart rate 84 /min Shivani Adams RADIOLOGIC ELECTRONIC SPECIALIST Work Phone: [facility] 01-13-2024 13:24-0400 SaO2% (BldA) [Mass fraction] 96 % Shivani Adams RADIOLOGIC ELECTRONIC SPECIALIST Work Phone: [facility] 01-13-2024 13:24-0400 Systolic blood pressure 124 mm[Hg] Shivani Adams RADIOLOGIC ELECTRONIC SPECIALIST Work Phone: [facility] 12-24-2023 09:31-0400 Body height 198.1 cm Radha Burris MD Work Phone: [facility] 12-24-2023 09:31-0400 Body mass index (BMI) [Ratio] 27.62 kg/m2 Radha Burris MD Work Phone: [facility] 12-24-2023 09:31-0400 Body weight 108.41 kg Radha Burris MD Work Phone: [facility] 12-24-2023 09:31-0400 Diastolic blood pressure 88 mm[Hg] Radha Burris MD Work Phone: [facility] 12-24-2023 09:31-0400 Heart rate 79 /min Radha Burris MD Work Phone: [facility] 12-24-2023 09:31-0400 SaO2% (BldA) [Mass fraction] 97 % Radha Burris MD Work Phone: [facility] 12-24-2023 09:31-0400 Systolic blood pressure 130 mm[Hg] Radha Burris MD Work Phone: [facility] 04-16-2023 11:58-0500 Diastolic blood pressure 77 mm[Hg] MD Radha Burris Work Phone: [facility] 04-16-2023 11:58-0500 Heart rate 60 /min MD Radha Burris Work Phone: [facility] 04-16-2023 11:58-0500 Respiratory rate 16 /min MD Radha Burris Work Phone: [facility] 04-16-2023 11:58-0500 SaO2% (BldA) [Mass fraction] 100 % MD Radha Burris Work Phone: [facility] 04-16-2023 11:58-0500 Systolic blood pressure 122 mm[Hg] MD Radha Burris Work Phone: [facility] 04-16-2023 09:35-0500 Body height 198.12 cm MD Radha Burris Work Phone: [facility] 04-16-2023 09:35-0500 Body weight 111.13 kg MD Radha Burris Work Phone: [facility] 03-20-2023 14:00-0500 Body height Imad Asaad Other [facility] [employer] Other 03-20-2023 14:00-0500 Body height 195.58 cm MD Radha Burris Work Phone: [facility] 03-20-2023 14:00-0500 Body mass index (BMI) [Ratio] 30.34 kg/m2 Imad Asaad Other [facility] [employer] Other 03-20-2023 14:00-0500 Body weight 116.08 kg Imad Asaad Other [facility] [employer] Other 03-20-2023 14:00-0500 Body weight 116.07 kg MD Radha Burris Work Phone: [facility] 03-20-2023 14:00-0500 Diastolic blood pressure 70 mm[Hg] Imad Asaad Other [facility] 03-20-2023 14:00-0500 Systolic blood pressure 120 mm[Hg] Imad Asaad Other [facility] 01-31-2023 14:51-0400 Body mass index (BMI) [Ratio] 28.89 kg/m2 Yossi Chen MD Work Phone: [facility] 01-31-2023 14:51-0400 Body weight 113.4 kg Yossi Chen MD Work Phone: [facility] 12-31-2022 15:12-0400 Body height 198.1 cm Kassie Richardson PAPERHANGER.FUEL TECHNICIAN Work Phone: [facility] 12-31-2022 15:12-0400 Body weight 114.76 kg Kassie Richardson PAPERHANGER.FUEL TECHNICIAN Work Phone: [facility] 12-31-2022 15:12-0400 Diastolic blood pressure 77 mm[Hg] Kassie Richardson PAPERHANGER.FUEL TECHNICIAN Work Phone: [facility] 12-31-2022 15:12-0400 Heart rate 69 /min Kassie Richardson PAPERHANGER.FUEL TECHNICIAN Work Phone: [facility] 12-31-2022 15:12-0400 Systolic blood pressure 123 mm[Hg] Kassie Richardson PAPERHANGER.FUEL TECHNICIAN Work Phone: [facility] 11-29-2022 13:43-0400 Body height 198.12 cm Radha Burris Work Phone: [facility] DO Work Phone: 11-29-2022 13:43-0400 Body mass index (BMI) [Ratio] 29.24 kg/m2 Radha Burris Work Phone: [facility] DO Work Phone: 11-29-2022 13:43-0400 Body surface area Derived from formula 2.49 m2 Radha Burris Work Phone: [facility] DO Work Phone: 11-29-2022 13:43-0400 Body weight 114.76 kg Radha Burris Work Phone: [facility] DO Work Phone: 11-12-2022 14:23-0400 Body height 198.12 cm Radha Burris Work Phone: [facility] DO Work Phone: 11-12-2022 14:23-0400 Body mass index (BMI) [Ratio] 29.82 kg/m2 Radha Burris Work Phone: [facility] DO Work Phone: 11-12-2022 14:23-0400 Body surface area Derived from formula 2.52 m2 Radha Burris Work Phone: [facility] DO Work Phone: 11-12-2022 14:23-0400 Body weight 117.03 kg Radha Burris Work Phone: [facility] DO Work Phone: 11-12-2022 14:23-0400 Diastolic blood pressure 65 mm[Hg] Radha Burris Work Phone: [facility] DO Work Phone: 11-12-2022 14:23-0400 Heart rate 77 /min Radha Burris Work Phone: [facility] DO Work Phone: 11-12-2022 14:23-0400 Systolic blood pressure 104 mm[Hg] Radha Burris Work Phone: [facility] DO Work Phone: 10-18-2022 14:32-0400 Diastolic blood pressure 61 mm[Hg] Infusion 3 Work Phone: [facility] 10-18-2022 14:32-0400 Heart rate 68 /min Infusion 3 Work Phone: [facility] 10-18-2022 14:32-0400 Respiratory rate 14 /min Infusion 3 Work Phone: [facility] 10-18-2022 14:32-0400 Systolic blood pressure 111 mm[Hg] Infusion 3 Work Phone: [facility] 08-30-2022 07:01-0400 Body height 184.4 cm Beth Diego MD Work Phone: [facility] 08-30-2022 07:01-0400 Body mass index (BMI) [Ratio] 33.41 kg/m2 Beth Diego MD Work Phone: [facility] 08-30-2022 07:01-0400 Body weight 113.6 kg Beth Diego MD Work Phone: [facility] 08-17-2022 10:33-0400 Body height 198.12 cm Radha Burris Work Phone: NB-Uonkerxerkifvv-D arma MAC1 302 Work Phone: 08-17-2022 10:33-0400 Body mass index (BMI) [Ratio] 29.99 kg/m2 Radha Burris Work Phone: QD-Lijamtdwmadxhh-D arma MAC[facility] 302 Work Phone: 08-17-2022 10:33-0400 Body surface area Derived from formula 2.52 m2 Radha Burris Work Phone: DX-Vshqidkpkmndqo-B arma [facility] 302 Work Phone: 08-17-2022 10:33-0400 Body temperature 97.8 [degF] Radha Burris Work Phone: AC-Eubayqchhyzpeb-P arma MAC1 [address] Work Phone: 08-17-2022 10:33-0400 Body weight 117.71 kg Radha Burris Work Phone: HY-Zftwrhakkzyfhn-R arma MAC1 [address] Work Phone: 08-17-2022 10:33-0400 Diastolic blood pressure 74 mm[Hg] Radha Burris Work Phone: UG-Arreihdhmrpvmy-M arma MAC1 302 Work Phone: 08-17-2022 10:33-0400 Heart rate 82 /min Radha Burris Work Phone: LD-Ngzqpytzuzralt-A arma MAC1 302 Work Phone: 08-17-2022 10:33-0400 Respiratory rate 16 /min Radha Burris Work Phone: FG-Ssxegqsjjztjpk-O arma MAC1 302 Work Phone: 08-17-2022 10:33-0400 SaO2% (BldA) [Mass fraction] 98 % Radha Burris Work Phone: RW-Davtkxmybdnyyh-X arma MAC1 302 Work Phone: 08-17-2022 10:33-0400 Systolic blood pressure 111 mm[Hg] Radha Burris Work Phone: PK-Tfuezakobmqitu-U arma MAC1 [address] Work Phone: 07-26-2022 14:25-0400 Diastolic blood pressure 77 mm[Hg] Infusion 3 Work Phone: [facility] 07-26-2022 14:25-0400 Heart rate 88 /min Infusion 3 Work Phone: [facility] 07-26-2022 14:25-0400 Systolic blood pressure 120 mm[Hg] Infusion 3 Work Phone: [facility] 07-17-2022 08:57-0400 Body height 198.12 cm Radha Burris Work Phone: [facility] Work Phone: 07-17-2022 08:57-0400 Body mass index (BMI) [Ratio] 29.08 kg/m2 Radha Burris Work Phone: [facility] 4107 Work Phone: 07-17-2022 08:57-0400 Body surface area Derived from formula 2.49 m2 Radha Liliya Fatuma Work Phone: [facility] 410 Work Phone: 07-17-2022 08:57-0400 Body temperature 98.8 [degF] Radha Lovell Fatuma Work Phone: [facility] 2689 Work Phone: 07-17-2022 08:57-0400 Body weight 114.13 kg Radha Lovell Fatuma Work Phone: [facility] 6000 Work Phone: 01-05-2022 14:08-0400 Respiratory rate 16 /min John Saul MD Work Phone: [facility] 01-05-2022 09:00-0400 Diastolic blood pressure 80 mm[Hg] John Saul MD Work Phone: [facility] 01-05-2022 09:00-0400 Heart rate 63 /min John Saul MD Work Phone: [facility] 01-05-2022 09:00-0400 Systolic blood pressure 143 mm[Hg] John Saul MD Work Phone: [facility] 01-05-2022 07:45-0400 Body temperature 97.9 [degF] John Saul MD Work Phone: [facility] 01-05-2022 07:45-0400 SaO2% (BldA) [Mass fraction] 98 % John Saul MD Work Phone: [facility] 01-03-2022 06:00-0400 Body mass index (BMI) [Ratio] 29.47 kg/m2 John Saul MD Work Phone: [facility] [employer] 01-03-2022 06:00-0400 Body weight 115.67 kg John Saul MD Work Phone: [facility] [employer] 12-31-2021 23:43-0400 Body height 198.1 cm John Saul MD Work Phone: [facility] [employer] 10-02-2021 16:00-0400 Body height Thor Fox Other [employer] Other 10-02-2021 16:00-0400 Body mass index (BMI) [Ratio] 30.71 kg/m2 Thor Corbettky Other [employer] Other 10-02-2021 16:00-0400 Body weight 117.48 kg Thorshu Fox Other [employer] Other 10-02-2021 16:00-0400 Diastolic blood pressure 72 mm[Hg] Thor Ruddy Other [employer] Other 10-02-2021 16:00-0400 SaO2% (BldA) [Mass fraction] 97 % Thor Corbettky Other [employer] Other 10-02-2021 16:00-0400 Systolic blood pressure 118 mm[Hg] Thorshu Fox Other [employer] Other 08-30-2021 10:15-0400 Body height Lashawn Estrada Other [employer] Other 08-30-2021 10:15-0400 Body mass index (BMI) [Ratio] 30.76 kg/m2 Lashawn Estrada Other [employer] Other 08-30-2021 10:15-0400 Body weight 117.66 kg Lashawn Estrada Other [employer] Other 08-30-2021 10:15-0400 Diastolic blood pressure 64 mm[Hg] Lashawn Estrada Other [employer] Other 08-30-2021 10:15-0400 Respiratory rate 18 /min Lashawn Estrada Other [employer] Other 08-30-2021 10:15-0400 SaO2% (BldA) [Mass fraction] 96 % Lashawn Estrada Other [employer] Other 08-30-2021 10:15-0400 Systolic blood pressure 116 mm[Hg] Lashawn Estrada Other [employer] Other 08-03-2021 16:45-0400 Body height Thor Fox Other [employer] Other 08-03-2021 16:45-0400 Body mass index (BMI) [Ratio] 30.73 kg/m2 Thor Fox Other [employer] Other 08-03-2021 16:45-0400 Body weight 117.57 kg Thor Fox Other [employer] Other 08-03-2021 16:45-0400 Diastolic blood pressure 80 mm[Hg] Thor Fox Other [employer] Other 08-03-2021 16:45-0400 SaO2% (BldA) [Mass fraction] 98 % Thor Fox Other [employer] Other 08-03-2021 16:45-0400 Systolic blood pressure 122 mm[Hg] Thor Fox Other [facility] [employer] Other 03-11-2020 13:30-0500 Body Temperature 98.1 [degF] [address] [place] [place] 03-11-2020 13:30-0500 BP Diastolic 75 mm[Hg] [address] [place] [facility] [place] 03-11-2020 13:30-0500 BP Systolic 126 mm[Hg] [address] [employer] [place] , [place] 03-11-2020 13:30-0500 Pulse (Heart Rate) 69 /min [address] [facility] [place] [place] 03-11-2020 13:30-0500 Respiratory Rate 18 /min [address] [place] 03-11-2020 09:45-0500 Pulse Oximetry 99 % [address] [facility] [place] [facility] [place] 03-03-2019 13:16-0500 BMI (Body Mass Index) 28 kg/m2 Chris Luong DX-Jdgemwaiz-Qqdcfg eld 201 Work Phone: 03-03-2019 13:16-0500 Body weight 109.88 kg Chris Luong WW-Lgaesqlrg-Eog ffi eld 201 Work Phone: 03-03-2019 13:16-0500 BP Diastolic 80 mm[Hg] Chris Luong QT-Epbfxehqw-Ikh ffi eld 201 Work Phone: Comment on above: Location: LUE; Position: Sitting 03-03-2019 13:16-0500 BP Systolic 118 mm[Hg] Chris Luong HH-Tubdqdttz-Jbh ffi eld [address] Work Phone: Comment on above: Location: LUE; Position: Sitting 03-03-2019 13:16-0500 BSA (Body Surface Area) 2.45 m2 Chris Abdikh NG-Eczgkleao-Cazben eld 201 Work Phone: 03-03-2019 13:16-0500 Height 198.12 cm Chris Luong PB-Zonoamolx-Rkl ffi eld 201 Work Phone: 03-03-2019 13:16-0500 Pulse (Heart Rate) 81 /min Chris MONZONNeurologyZee Puckett eld 201 Work Phone: 03-03-2019 13:16-0500 Pulse Oximetry 96 % Chris MONZONNeurologyValentina amin eld 201 Work Phone: Comment on above: Source: RA Encounters Encounter Date Encounter Type Care Provider Facility Start: 12-15-2024 End: 12-16-2024 Clinisync Result Encounter Generic External Data Provider [facility] External Department Unsolicited Start: 12-15-2024 End: 12-16-2024 Clinisync Result Encounter Generic External Data Provider [facility] External Department Unsolicited Start: 12-15-2024 End: 12-16-2024 Telephone encounter Abby Bernstein APRN.CNP Work Phone: Neurology Comment on above: Received [facility] Start: 12-15-2024 End: 12-15-2024 ambulatory ABBY BERNSTEIN Facility:[facility] Start: 12-14-2024 End: 12-14-2024 ambulatory Abby Bernstein APRN.CNP Work Phone: Neurology Comment on above: Test results Start: 12-11-2024 End: 12-11-2024 E-mail encounter from caregiver Abby Bernstein APRN.CNP Work Phone: Neurology Start: 12-11-2024 End: 12-11-2024 Follow-up encounter Abby Bernstein APRN.CNP Work Phone: Neurology Comment on above: Follow up Start: 11-12-2024 ambulatory [facility] Start: 11-10-2024 End: 11-10-2024 Patient encounter procedure Abby Bernstein APRN.FUEL TECHNICIAN Work Phone: Neurology Comment on above: Orthostatic lighthea dedness (Primary Dx); Ptosis of right eyelid; Hoarseness of voice; Disturbance of skin sensation; Abnormality of gait and mobility; Falls frequently; Orthostatic hypotension; Voice disturbance Start: 11-10-2024 End: 11-10-2024 ambulatory ABBY BERNSTEIN Facility:[facility] Start: 10-29-2024 End: 10-29-2024 Bamboo flowsheet Lalito Burris DO Work Phone: [facility] Start: 10-29-2024 End: 10-29-2024 Bamboo flowsheet Lalito Burris DO Work Phone: [facility] Start: 10-29-2024 End: 10-29-2024 Office outpatient visit 15 minutes Lalito Burris DO Work Phone: [facility] Comment on above: Nasal septal deviati on (Primary Dx); Chronic maxillary sinusitis; OAF (sonny-antral fistula) Start: 10-29-2024 End: 10-29-2024 ambulatory LALITO BURRIS Not Available Start: 10-15-2024 End: 10-15-2024 Postop follow up visit related to original px Lalito Burris DO Work Phone: [facility] Comment on above: Nasal septal deviati on (Primary Dx); Chronic maxillary sinusitis Start: 10-15-2024 End: 10-15-2024 ambulatory LALITO BURRIS Not Available Start: 10-15-2024 End: 10-15-2024 Bamboo flowsheet Lalito Burris DO Work Phone: [facility] Start: 10-15-2024 End: 10-15-2024 Bamboo flowsheet Lalito Burris DO Work Phone: [facility] Start: 10-07-2024 End: 10-07-2024 Admission to same day surgery center Lalito Burris [facility] Start: 10-07-2024 End: 10-07-2024 ambulatory Lalito Burris Facility:[facility] Start: 10-01-2024 ambulatory [facility] Start: 09-25-2024 End: 09-25-2024 ambulatory Lalito Burris Facility:[facility] Start: 09-25-2024 End: 09-25-2024 Patient encounter procedure Lalito Burris [facility] Start: 09-22-2024 End: 09-22-2024 Office outpatient visit 25 minutes Lalito Burris DO Work Phone: [facility] Comment on above: Nasal septal deviati on (Primary Dx); Acute non-recurrent maxillary sinusitis; OAF (sonny-antral fistula) Start: 09-22-2024 End: 09-22-2024 ambulatory LALITO BURRIS Not Available Start: 09-22-2024 End: 09-22-2024 Bamboo flowsheet Lalito Burris DO Work Phone: [facility] Start: 09-22-2024 End: 09-22-2024 Bamboo flowsheet Lalito Burris DO Work Phone: [facility] Start: 09-08-2024 End: 09-08-2024 Office outpatient new 45 minutes Lalito Burris DO Work Phone: [facility] Comment on above: Nasal septal deviati on (Primary Dx); Acute non-recurrent maxillary sinusitis; Abnormal CT scan, sinus; OAF (sonny-antral fistula) Start: 09-08-2024 End: 09-08-2024 ambulatory LALITO BURRIS Not Available Start: 09-08-2024 End: 09-08-2024 Bamboo flowsheet Lalito Burris DO Work Phone: [facility] Start: 09-08-2024 End: 09-08-2024 Bamboo flowsheet Lalito Burris DO Work Phone: [facility] Start: 09-02-2024 End: 09-02-2024 Office outpatient visit 15 minutes Shivani Adams RADIOLOGIC ELECTRONIC SPECIALIST Work Phone: [facility] Comment on above: Acute non-recurrent maxillary sinusitis (Primary Dx) Start: 09-02-2024 End: 09-02-2024 ambulatory SHIVANI ADAMS Not Available Start: 09-02-2024 End: 09-02-2024 Bamboo flowsheet Shivani Adams RADIOLOGIC ELECTRONIC SPECIALIST Work Phone: [facility] Start: 09-02-2024 End: 09-02-2024 Bamboo flowsheet Shivani Adams RADIOLOGIC ELECTRONIC SPECIALIST Work Phone: [facility] Start: 09-02-2024 End: 09-02-2024 Clinisync Result Encounter Generic External Data Provider [facility] External Department Unsolicited Start: 08-31-2024 ambulatory [facility] Start: 08-21-2024 End: 08-21-2024 Office outpatient visit [...] flowsheet Shashi Pina DO Work Phone: [facility] Start: 08-19-2024 End: 08-19-2024 Bamboo flowsheet Shashi Pina DO Work Phone: [facility] Start: 08-19-2024 End: 08-19-2024 Office outpatient visit 25 minutes Shashi Pina DO Work Phone: [facility] Comment on above: Cranial neuropathy ( Primary Dx); Weakness Start: 08-19-2024 End: 08-19-2024 ambulatory SHASHI PINA Not Available Start: 08-17-2024 ambulatory LALITO JOSHI [facility] Start: 08-10-2024 End: 08-10-2024 Luis Redding MD Work Phone: [facility] Start: 08-10-2024 End: 08-10-2024 [facility] Work Phone: [facility] Start: 08-10-2024 End: 08-10-2024 Office outpatient visit 40 minutes Latoya Redding MD Work Phone: [facility] Comment on above: Low serum parathyroi [...] Department Unsolicited Start: 07-14-2024 End: 07-14-2024 ambulatory SHASHI PINA [facility] Start: 07-06-2024 End: 07-06-2024 Office outpatient new 45 minutes Latoya Redding MD Work Phone: [facility] Comment on above: Postsurgical hypopar athyroidism [...] End: 06-22-2024 Office outpatient new 45 minutes Shashi Pina DO Work Phone: [facility] Comment on above: Weakness (Primary Dx ); Acquired ptosis of right eyelid; Cranial neuropathy Start: 06-22-2024 End: 06-22-2024 ambulatory SHASHI PINA Not Available Start: 06-10-2024 End: 06-10-2024 Orders Only Shivani Adams RADIOLOGIC ELECTRONIC SPECIALIST Work Phone: [facility] Comment on above: Acquired hypothyroid ism (CMS/HCC) Start: 06-09-2024 End: 06-09-2024 Bamboo flowsheet Eleonora Leo RADIOLOGIC ELECTRONIC SPECIALIST Work Phone: [facility] Start: 06-09-2024 End: 06-09-2024 Bamboo flowsheet Eleonora Leo RADIOLOGIC ELECTRONIC SPECIALIST Work Phone: [facility] Start: 06-09-2024 End: 06-09-2024 Patient encounter procedure Eleonora Leo RADIOLOGIC ELECTRONIC SPECIALIST Work Phone: [facility] Comment on above: Restless legs syndro me (Primary Dx); POTS (postural orthostatic tachycardia syndrome); Aneurysm of ascending aorta without rupture (CMS/HCC); Arteriosclerosis of coronary artery (CMS/HCC); Paroxysmal atrial fibrillation (CMS/HCC); Coronary artery disease involving [place] heart, unspecified vessel or lesion type, unspecified [...] subsequent Start: 06-09-2024 End: 06-09-2024 ambulatory ELEONORA VALENTESEKOU Not Available Start: 06-04-2024 End: 06-04-2024 Clinisync [...] Dx) Start: 05-18-2024 End: 05-19-2024 Refill Sofia Vigil NP Work Phone: [facility] Comment on above: Acquired hypothyroid ism (CMS/HCC) Start: 04-28-2024 ambulatory YANDEL SHEN [facility] Start: 04-23-2024 End: 04-23-2024 Orders Only Radha Burris MD Work Phone: [facility] Comment on above: Restless leg (Primar y Dx) Start: 04-10-2024 Evaluation and manag ement of inpatient [facility] Start: 04-10-2024 Evaluation and manag ement of inpatient [facility] Start: 04-09-2024 Evaluation and manag ement of inpatient [facility] Start: 04-08-2024 Emergency department patient visit SYD MCGREGOR [facility] Start: 04-08-2024 Emergency department patient visit MARGO FELIZ [facility] Start: 04-08-2024 End: 04-10-2024 Evaluation and management of inpatient MIGUEL MATTHEWS [facility] Start: 04-08-2024 End: 04-08-2024 ambulatory [facility] Start: 03-16-2024 End: 03-16-2024 Clinisync Result Encounter Generic External Data Provider [facility] External Department Unsolicited Start: 03-16-2024 End: 03-16-2024 Clinisync Result Encounter Generic External Data Provider [facility] External Department Unsolicited Start: 03-11-2024 End: 03-11-2024 ambulatory [facility] Start: 03-03-2024 End: 03-03-2024 Encounter identifier Donn Ceballos Work Phone: [facility] Start: 03-03-2024 ambulatory Donn Ashish Tejadak [facility] Start: 02-26-2024 End: 02-26-2024 ambulatory [facility] Start: 02-10-2024 End: 02-10-2024 Telephone encounter Radha [...] angina (CMS/HCC) Start: 02-04-2024 End: 02-04-2024 ambulatory LALITO PERRYCKO [facility] Start: 01-29-2024 Evaluation and manag ement of inpatient [facility] Start: 01-29-2024 Evaluation and manag ement of inpatient [facility] Start: 01-28-2024 Evaluation and manag ement of inpatient [facility] Start: 01-28-2024 Evaluation and manag ement of inpatient [facility] Start: 01-27-2024 [facility] Start: 01-27-2024 End: 01-30-2024 [facility] Start: 01-20-2024 End: 01-20-2024 Office outpatient visit 15 minutes Sofia Vigil RADIOLOGIC ELECTRONIC SPECIALIST Work Phone: [facility] Comment on above: Irritant contact armando matitis due to other agents (Primary Dx) Start: 01-20-2024 End: 01-20-2024 ambulatory SOFIA VIGIL Not Available Start: 01-13-2024 End: 01-13-2024 Bamboo flowsheet Shivani Adams RADIOLOGIC ELECTRONIC SPECIALIST Work Phone: [facility] Start: 01-13-2024 End: 01-13-2024 Bamboo flowsheet Shivani Adams RADIOLOGIC ELECTRONIC SPECIALIST Work Phone: [facility] Start: 01-13-2024 End: 01-13-2024 Office outpatient visit 15 minutes Shivani Adams RADIOLOGIC ELECTRONIC SPECIALIST Work Phone: [facility] Comment on above: Dermatitis (Primary Dx); Chronic kidney disease, stage 3a (HCC) (CMS/HCC); Atherosclerosis of aorta (CMS/HCC); Thoracic aortic ectasia (CMS/HCC) Start: 01-13-2024 End: 01-13-2024 ambulatory SHIVANI ADAMS Not Available Start: 01-06-2024 End: 01-06-2024 Encounter identifier Donn Ceballos Work Phone: [facility] Start: 01-02-2024 End: 01-02-2024 Office outpatient visit 25 minutes Donn Ceballos Work Phone: [facility] Start: 12-25-2023 End: 12-25-2023 ambulatory AB [facility] Start: 12-24-2023 End: 12-24-2023 Bamboo flowsheet Radha Burris MD Work Phone: [facility] Start: 12-24-2023 End: 12-24-2023 Bamboo flowsheet Radha Burris MD Work Phone: [facility] Start: 12-24-2023 End: 12-24-2023 Office outpatient visit 15 minutes Radha Burris MD Work Phone: [facility] Comment on above: Diarrhea, unspecifie d type (Primary Dx); Autonomic dysfunction; Angina at rest ([facility]/HCC) Start: 12-24-2023 End: 12-24-2023 ambulatory RADHA BURRIS Not Available Start: 12-07-2023 End: 12-07-2023 ambulatory ELEONORA LEO Not Available Start: 09-01-2023 Letter encounter Radha cantu MD Work Phone: [facility] Start: 06-10-2023 End: 06-10-2023 ambulatory Radha Burris Facility:[facility] Start: 06-10-2023 End: 06-10-2023 ambulatory MD Radha Burris Work Phone: [facility] Work Phone: Start: 06-10-2023 End: 06-10-2023 Patient encounter procedure MD Radha Burris Work Phone: [facility] [place] Work Phone: Start: 05-31-2023 Clinisync Result Encounter Gen omari External Data Provider [facility] External Department Unsolicited Start: 05-31-2023 Clinisync Result Encounter Gen omari External Data Provider [facility] External Department Unsolicited Start: 05-31-2023 End: 05-31-2023 ambulatory María Pearl APRN.FUEL TECHNICIAN Work Phone: Neurology Comment on above: Orthostatic hypotens ion (Primary Dx); [place]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) Start: 05-31-2023 End: 05-31-2023 Telemedicine consultation with patient María Pearl APRN.FUEL TECHNICIAN Work Phone: [facility] Start: 05-30-2023 End: 05-30-2023 ambulatory Imad Asaad Other [employer] Other Start: 05-30-2023 Telephone encounter Imad Asaad [facility] Start: 05-26-2023 Letter encounter [facility] cantu MD [facility] Start: 05-20-2023 End: 05-20-2023 ambulatory Imad Asaad Other [employer] Other Start: 05-20-2023 Telephone encounter Imad Asaad [facility] Start: 04-26-2023 End: 04-26-2023 ambulatory Imad Asaad Other [employer] Other Start: 04-26-2023 Telephone encounter Imad Asaad [facility] Start: 04-24-2023 End: 04-24-2023 ambulatory Imad Asaad Other [employer] Other Start: 04-24-2023 Telephone encounter Imad Asaad [facility] Start: 04-16-2023 End: 04-16-2023 ambulatory Radha Burris Facility:[facility] Start: 04-16-2023 End: 04-16-2023 Admission to same day surgery center MD Radha Burris Work Phone: [facility] Work Phone: Start: 04-16-2023 End: 04-16-2023 ambulatory MD Radha Burris Work Phone: [facility] Work Phone: Start: 04-09-2023 End: 04-09-2023 ambulatory Imad Asaad Other [employer] Other Start: 04-09-2023 Telephone encounter Imad Asaad [facility] Start: 04-01-2023 End: 04-01-2023 ambulatory Imad Asaad Other [employer] Other Start: 04-01-2023 Telephone encounter Imad Asaad [facility] Start: 03-21-2023 End: 03-21-2023 Office outpatient visit 15 minutes Donn Ceballos Work Phone: [facility] Start: 03-20-2023 End: 03-20-2023 ambulatory Imad Asaad Other [employer] Other Start: 03-20-2023 Office outpatient ne w 45 minutes Imad Asaad [facility] Start: 03-20-2023 End: 03-20-2023 Patient encounter procedure MD Radha Burris Work Phone: [facility] Work Phone: Start: 02-25-2023 End: 02-25-2023 ambulatory Skin Biopsy Work Phone: Neurology Start: 02-25-2023 End: 02-25-2023 Patient encounter procedure Skin Biopsy Work Phone: [facility] Start: 02-05-2023 Telephone encounter María Zhao on PAPERHANGER.FUEL TECHNICIAN Work Phone: Neurology Comment on above: [facility] Start: 02-01-2023 End: 02-02-2023 ambulatory RADHA BURRIS [facility] Start: 02-01-2023 End: 02-01-2023 Subsequent hospital visit by physician Winifred Baker 2 [facility] Comment on above: Left lower quadrant abdominal pain Start: 02-01-2023 End: 02-01-2023 ambulatory [facility] Start: 01-31-2023 End: 02-01-2023 ambulatory [facility] Start: 01-31-2023 End: 01-31-2023 Office outpatient visit 25 minutes Yossi Chen MD Work Phone: [facility] Comment on above: Diarrhea, unspecifie d type (Primary Dx); Left lower quadrant abdominal pain Start: 01-28-2023 ambulatory María Pearl PAPERHANGER.FUEL TECHNICIAN Work Phone: Neurology Comment on above: Tilt Start: 01-28-2023 E-mail encounter tobias tolbert caregiver María Maria R PAPERHANGER.FUEL TECHNICIAN Work Phone: [facility] Start: 01-28-2023 Telephone encounter María ellis PAPERHANGER.FUEL TECHNICIAN Work Phone: Neurology Comment on above: Results ([facility] ) Start: 01-26-2023 ambulatory María Pearl PAPERHANGER.FUEL TECHNICIAN Work Phone: Neurology Comment on above: Test results Start: 12-31-2022 End: 12-31-2022 Patient encounter procedure Kassie Richardson PAPERHANGER.FUEL TECHNICIAN Work Phone: Neurology Comment on above: Autonomic dysfunctio n (Primary Dx); Dizzy spells Start: 12-13-2022 Postop follow up vis it related to original px Radha Burris Work Phone: [facility] 201 DO Work Phone: Start: 12-13-[address] Yossi Chen Facil ity:[id number] Start: 12-10-2022 Chart Update Radha xavier Work Phone: [facility] DO Work Phone: Start: 11-29-2022 Postop follow up vis it related to original px Radha Burris Work Phone: [facility] DO Work Phone: Start: 11-29-[address] Yossi Chambers ity:[id number] Start: 11-22-2022 End: 11-22-2022 Evaluation and management of inpatient Dr. Yossi Chen Facility:[id number] Start: 11-16-2022 Telephone encounter Kassie Puentes APRN.FUEL TECHNICIAN Work Phone: Neurology Comment on above: Received Outside Med ical Records () Start: 11-12-[address] Yossi Chambers ity:[id number] Start: 10-29-2022 AUDIT Radha xavier Work Phone: LQ-Ljskythghmemdq-Mufqq an Work Phone: Start: 10-26-[address] Arabella Butt Facility:[id number] Start: 10-19-2022 ambulatory Kassie gregg PAPERHANGER.FUEL TECHNICIAN Work Phone: Neurology Comment on above: Reaction Start: 10-18-2022 End: 10-18-2022 ambulatory Infusion Main Chair 3 Work Phone: Neurology Comment on above: Chronic migraine wit hout aura, with intractable migraine, so stated, with status migrainosus (Primary Dx) Start: 10-15-2022 End: 10-15-[address] Arabella Butt Facility:[id number] Start: 10-15-2022 End: 10-15-2022 Subsequent hospital visit [...] joint, bilateral; Personal history of nicotine dependence; senior living (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 of aspirin; Allergy status to penicillin; Allergy status to other antibiotic agents Start: 10-10-[address] Arabella Butt Facility:95 Start: 10-10-2022 Encounter for preprocedural cardiovascular examination Dr. Arabella Butt [facility] Start: 10-09-2022 AUDIT Radha xavier Work Phone: [facility] Work Phone: Start: 10-08-2022 Rx Renewal Radha xavier Work Phone: AQ-Zzhcycbqzvpbzg-Ujknn in [place] [address] Work Phone: Start: 09-25-2022 Office outpatient vi sit 25 minutes Radha Burris Work Phone: FK-Zhvwemgampoeso-Ppenp an Work Phone: Start: 09-25-2022 [facility], Provider : Ruby Daily, Status: Pen, Time: 2:30 PM Radha Burris Work Phone: [facility] 9826 Work Phone: Start: 09-25-[address] Ruby Daily Facility:[facility] Start: 09-24-2022 Office outpatient vi sit 10 minutes Radha Burris Work Phone: [facility] 2342 Work Phone: Start: 09-24-[address] Ranjana Perrin Facility:94 Start: 09-13-2022 End: 09-13-[address] Ruby Daily Facility:[facility] Start: 09-04-2022 Office outpatient vi sit 40 minutes Radha Burris Work Phone: DQ-Iujayczzrfaaqy-Joljn an Work Phone: Start: 09-04-[address] Ruby Daily Facility:[facility] Start: 08-30-2022 End: 08-30-[address] Ruby Daily Facility:[facility] Start: 08-30-2022 End: 08-30-2022 Subsequent hospital visit by physician Beth Diego MD Work Phone: [facility] Comment on above: Dysphagia, oropharyn [...] Obstructive sleep apnea (adult) (pediatric); 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, unspecified; senior living (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 of antithrombotics/antiplatelets; senior living (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 of aspirin; Personal history of transient ischemic attack (TIA), and cerebral infarction without residual deficits; Personal history of nicotine dependence; Allergy status to penicillin Start: 08-23-2022 AUDIT Radha xavier Work Phone: SW-Nqnzyokzprlcya-Jvrsp an Work Phone: Start: 08-20-[address] Radha Burris Facility:[facility] Start: 08-17-2022 Current tobacco non- user cad cap copd pv dm Radha Burris Work Phone: NP-Hdwedblkwukstg-Syubw MAC1 302 Work Phone: Start: 08-17-[address] Arabella Butt Facility:9498 Start: 08-13-[address] Radha Burris Facility:[id number] Start: 08-13-2022 Patient encounter procedure Rad[facility] Burris [facility] [address] [place] Work Phone: Start: 08-10-[address] Ruby Daily Facility:[id number] Start: 07-31-2022 Office outpatient vi sit 40 minutes Radha Burris Work Phone: EV-Oafrfwwmmkmtet-Hxyfy an Work Phone: Start: 07-31-2022 Patient encounter procedure Radha Burris Work Phone: KS-Vujcerknvdlldg-Yidln an Work Phone: Start: 07-31-2022 [facility] : Ruby Daily, Status: Pen, Time: 12:30 PM Radha Burris Work Phone: [facility] [address] [place] Work Phone: Start: 07-31-[address] Ruby Daily Facility:[id number] Start: 07-30-[address] Radha Burris Facility:[id number] Start: 07-30-2022 Patient encounter procedure Radha Burris Work Phone: [facility] [address] [place] Work Phone: Start: 07-29-2022 ambulatory Kassie gregg APRN.FUEL TECHNICIAN Work Phone: Neurology Comment on above: After effects Start: 07-26-2022 End: 07-26-2022 ambulatory Infusion Main Chair 3 Work Phone: Neurology Comment on above: Chronic migraine wit hout aura, with intractable migraine, so stated, with status migrainosus (Primary Dx) Start: 07-21-2022 ambulatory Kassie gregg PAPERHANGER.FUEL TECHNICIAN Work Phone: Neurology Comment on above: What's next? Start: 07-18-[address] Ranjana Perrin Facility:9507 Start: 07-17-2022 Office outpatient vi sit 25 minutes Radha Burris Work Phone: BO-Dprqwhepwhfewd-Mmxgu an Voice Work Phone: Start: 07-17-2022 Patient encounter procedure Radha Burris Work Phone: DM-Hioonjcirmnkdl-Nfekb in [place] [address] Work Phone: Start: 07-17-[address] Ranjana Perrin Facility:9448 Start: 07-11-2022 ambulatory Kassie gregg PAPERHANGER.FUEL TECHNICIAN Work Phone: Neurology Comment on above: Test results Start: 06-04-2022 End: 06-05-[address] AISHWARYA SWAIN Facility:H1 Start: 05-31-2022 ambulatory Kassie gregg PAPERHANGER.FUEL TECHNICIAN Work Phone: Neurology Comment on above: Today's visit Start: 05-31-2022 E-mail encounter fro m caregiver Kassie Richardson PAPERHANGER.FUEL TECHNICIAN Work Phone: [facility] Start: 05-31-2022 End: 05-31-2022 Patient encounter procedure Kassie Richardson PAPERHANGER.FUEL TECHNICIAN Work Phone: Neurology Comment on above: Chronic migraine wit hout aura, intractable, without status migrainosus (Primary Dx); Aphasia; Other specified transient cerebral ischemias Start: 05-29-2022 Letter encounter Radha cantu MD Work Phone: [facility] Start: 03-22-2022 End: 03-23-2022 ambulatory YANDEL SHEN Facility:H1 Start: 02-05-2022 End: 02-06-[address] MONO CHRISTIE Facility:H1 Start: 01-09-2022 End: 01-09-[address] LEXI SINGH Facility:H1 Start: 01-01-2022 End: 01-05-2022 Evaluation and management of inpatient JANET FORD [facility] Start: 12-31-2021 End: 01-05-2022 Evaluation and management of inpatient John Saul MD Work Phone: [facility] Renal//Med Surg Comment on above: Acute pancreatitis, unspecified complication status, unspecified pancreatitis type (Primary Dx); Gall stone pancreatitis; EMELIA (acute kidney injury) ([facility]) Start: 12-31-2021 End: 01-01-[address] RADHA BURRIS Facility:H1 Start: 12-30-2021 End: 12-31-[address] MAYELIN RODRIGUEZ Facility:H1 Start: 12-29-2021 End: 12-29-[address] VERONICA YOUNG Facility:H1 Start: 12-12-2021 End: 12-13-2021 Evaluation and management of inpatient RADHA BURRIS Facility:[facility] Start: 12-08-2021 End: 12-09-2021 ambulatory YANDEL SHEN Facility:H1 Start: 11-23-2021 Encounter for preprocedural laboratory examination DR MONO CHRISTIE [facility] Start: 11-21-2021 End: 11-22-2021 ambulatory RADHA BURRIS Facility:[facility] Start: 11-17-2021 End: 11-18-[address] MONO CHRISTIE Facility:H1 Start: 11-17-2021 End: 11-18-2021 Encounter for preprocedural laboratory examination DR MONO CHRISTIE Facility:H1 Start: 11-16-2021 End: 11-16-[address] RADHA BURRIS Facility:H1 Start: 11-09-2021 End: 11-10-2021 ambulatory RADHA BURRIS Facility:[facility] Start: 10-03-2021 End: 10-03-[address] Donnell Du Facility:H1 Start: 10-03-2021 End: 10-04-2021 ambulatory YANDEL VITALIY Facility:H1 Start: 10-02-2021 End: 10-02-2021 ambulatory Thorshu Fox Other [employer] Other Start: 10-02-2021 Office outpatient vi sit 15 minutes Thor Ruddy [facility] Start: 09-27-2021 End: 09-28-2021 ambulatory YANDEL VITALIY Facility:H1 Start: 08-30-2021 End: 08-30-2021 ambulatory Lashawn Estrada Other [employer] Other Start: 08-30-2021 Office outpatient vi sit 15 minutes Lashawn Estrada [facility] Start: 08-15-2021 (Procedure) Short Thor Fox [facility] Start: 08-15-2021 End: 08-15-2021 ambulatory Thor Ruddy Other [employer] Other Start: 08-03-2021 End: 08-03-2021 ambulatory Thor Ruddy Other [employer] Other Start: 08-03-2021 Office outpatient vi sit 25 minutes Thor Ruddy [facility] Start: 07-27-2021 (Procedure) Short Thor Fox [facility] Start: 07-27-2021 End: 07-27-2021 ambulatory Thorshu Fox Other [employer] Other Start: 07-18-2021 (Procedure) Short Thor Fox [facility] Start: 07-18-2021 End: 07-18-2021 ambulatory Thor Ruddy Other [employer] Other Start: 07-03-2021 End: 07-03-2021 Office outpatient visit 15 minutes Donn Ceballos Work Phone: [facility] Start: 06-21-2021 End: 06-21-2021 Office outpatient new 30 minutes Donn Ceballos Work Phone: [facility] Start: 05-01-2021 End: 05-01-2021 Subsequent hospital visit by physician Olivia [facility] Mike (I-Stat) Work Phone: Radiology Comment on above: Shortness of breath [R06.02] Start: 03-11-2020 End: 03-12-2020 Patient encounter procedure RADHA Hinojosa [facility] Start: 03-11-2020 End: 03-11-2020 Subsequent hospital visit by physician Rupinder Infusion Bed 3 [facility] OP INFUSION Comment on above: Arrived Start: 02-10-2020 End: 02-10-2020 ambulatory UNKNOWN PROVIDER Facility:[facility] Start: 10-20-2019 Patient encounter procedure Terrell Her OL-Hbanmkzyscfaul-Uzmdl in [place] [address] Work Phone: Start: 09-29-2019 Patient encounter procedure Terrell Her XU-Rtjfxubepzzghi-Uhafg in [place] [address] Work Phone: Start: 09-28-2019 Patient encounter procedure Terrell Her PF-Nppixskyjvcuye-Syrbw in [place] [address] Work Phone: Start: 09-21-2019 Patient encounter procedure Terrell Her HQ-Bdhzurkpgeafoq-Oljwq in [place] [address] Work Phone: Start: 09-17-2019 Patient encounter procedure Terrell Her [facility] Work Phone: Start: 09-10-2019 Patient encounter procedure Terrell Her [facility] Work Phone: Start: 06-29-2019 Patient encounter procedure Terrell Her [facility] Work Phone: Start: 03-03-2019 Patient encounter procedure Terrell Her [facility] Work Phone: Start: 04-28-2018 Patient encounter procedure CLAIR MATT Facility:1532 Procedures Date Procedure Procedure Detail Performing Clinician Start: 12-15-2024 [facility] ACETYLCHOLINE REC BINDING AB Generic External Data Provider Start: 10-07-2024 Endoscopic biopsy of nasal sinus Lalito lange Start: 09-02-2024 CA ECHO DOPPLER COMPLETE Generic Externa l Data Provider Start: 08-03-2024 ITP Generic External Data Provider Start: 07-02-2024 ITP Generic External Data Provider Start: 06-04-2024 ITP Generic External Data Provider Start: 04-08-2024 Follow-up visit Follow-up SHUKRI DUQUEUBB Start: 03-18-2024 Colonoscopy Radha Burris MD Work [...] Phone: Start: 01-02-2022 Assay of lipase Shane Jacy Portillois DO Work Phone: Start: 01-02-2022 BASIC [...] 01-01-2022 Assay of troponin quantitative Nohelia Morris PAPERHANGER - FUEL TECHNICIAN Work Phone: Start: 01-01-2022 LACTATE, SEPSIS Shane T Villalpando DO Work Phone: Start: 01-01-2022 Mri abdomen w/o contrast material Janet Ford PAPERHANGER - FUEL TECHNICIAN Work Phone: Start: 01-01-2022 Assay of troponin quantitative Nohelia Morris PAPERHANGER - FUEL TECHNICIAN Work Phone: Start: 01-01-2022 Blood count complete [...] - Serum or Plasma María Maria R PAPERHANGER.FUEL TECHNICIAN Work Phone: Start: 01-01-2022 Assay of troponin quantitative Nohelia Morris PAPERHANGER - FUEL TECHNICIAN Work Phone: Start: 01-01-2022 Assay of troponin quantitative Nohelia Morris PAPERHANGER - FUEL TECHNICIAN Work Phone: Start: 01-01-2022 LACTATE, SEPSIS Shane Villalpando DO Work Phone: Start: 01-01-2022 Culture bacterial blood aerobic w/id isolates Nohelia Morris PAPERHANGER - FUEL TECHNICIAN Work Phone: Start: 01-01-2022 CULTURE, BLOOD 1 Nohelia Morris PAPERHANGER - FUEL TECHNICIAN Work Phone: Start: 12-12-2021 Antibody screen RADHA BURRIS Comment on above: Performed By: #### [id number] #### [place] [address] [place], [place] [address] Start: 06-21-2021 End: 06-21-2021 Radex spine cervical [...] excision Chris Trinidad kh Appendectomy Chris Luong Appendectomy Lalito Burris Arthroplasty of knee Lalito lange Arthroplasty of knee Lalito lange Comment on above: Right/Left Atrial appendage dane sure device insertion Radha Burris Work Phone: Back structure, excl uding neck (body structure) Lalito Burris Cataract extraction and insertion of intraocular lens Lalito Burris Catheter ablation of arrhythmogenic focus Radha Burris Work Phone: Cervical arthrodesis Chris Luong Cholecystectomy Lalito Rob ach Colonoscopy Radha cantu Work Phone: Colonoscopy Lalito Burris Destructive procedure Lalito tillman Esophageal hiatus hernia repair Radha Burris Work Phone: Esophagogastroduodenoscopy J luis miguel Burris Work Phone: Fusion of joint of c ervical spine with internal fixation by anterior approach Lalito Burris History of operative procedure on knee Thor Fox Other History of thyroidectomy Nathaly Fox Other History of thyroidectomy Status post total thyroidectomy MD Radha Burris Work Phone: Implantation of cardiac pacemaker Lalito Burris Implantation of inse rtable loop recorder Radha Burris Work Phone: Laminectomy Radha cantu Work Phone: Laparoscopic cholecystectomy Radha Burris Work Phone: Operative procedure on knee Chris Ag Operative procedure on uterus AND/OR cervix Radha Burris Work Phone: Retinal detachment of left eye Lalito Burris Thyroidectomy Lalito Romero jordi Tonsillectomy Radha xavier Work Phone: Tonsillectomy Lalito Romero jordi Total thyroidectomy Radha Burris Work Phone: 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) Lalito tillman Comment on above: 2022 Plan of Treatment Date Care Activity Detail Author Start: 03-18-2034 Screening for malignant neoplasm of colon [facility] Start: 04-16-2033 Screening for malignant neoplasm of colon [facility] Start: 2028 RSV Vaccine (1 - 1-dose 75+ series) RSV Vaccine (1 - 1-dose 75+ series) [facility] Start: 04-10-2027 Diabetes Screening Diabetes Screenin [facility] Start: 01-01-2027 Lipid panel [facility] Start: 03-05-2026 Diabetes Screening Diabetes Screenin [facility] Start: 01-31-2026 Diabetes Screening Diabetes Screensherrill [facility] Start: 11-21-2025 DIABETES SCREEN DIABETES SCREEN [facility] Start: 11-21-2025 Diabetes Screening Diabetes Screenin g [facility] Start: 06-09-2025 Medicare Annual Wellness (AWV) Medicare Annual Wellness (AWV) [facility] Start: 06-04-2025 Pneumococcal Vaccine : 65+ Years (1 of 2 - PCV) Pneumococcal Vaccine: 65+ Years (1 of 2 - PCV) [facility] Comment on above: Postponed from 05/21 (Patient Refused) Postponed from 05/21 (Patient Refused) Start: 04-10-2025 Creatinine measurement Serum Creatin ine [facility] Start: 04-08-2025 Complete blood count Hemoglobin/Constantino tocrit [facility] Start: 02-11-2025 End: 02-11-2025 Patient encounter procedure 02/11/2025 11:45 AM EDT Office Visit Neurology [address] [place] [address] Abby Bernstein, PAPERHANGER.FUEL TECHNICIAN [address] [place] [address] Follow up Neurology Comment on above: Follow up Start: 02-08-2025 End: 02-08-2025 Patient encounter procedure [facility] Start: 01-14-2025 End: 01-14-2025 Patient encounter procedure 01/14/2025 10:20 AM EDT Office Visit [place] [id number] [place] [phone] Radha Burris MD [address] [place] [address] [facility] Start: 01-04-2025 End: 01-04-2025 Patient encounter procedure 01/04/2025 3:00 PM EDT Office Visit Neurological [place] [address] [place] [address] Zev Hudson MD [address] [place] [address] Orthostatic lightheadedness [R42]; Disturbance of skin sensation [R20.9]; Abnormality of gait and mobility [R26.9]; Falls frequently [R29.6]; Orthostatic hypotension [I95.1] [facility] Comment on above: Orthostatic lighthea dedness [R42]; Disturbance of skin sensation [R20.9]; Abnormality of gait and mobility [R26.9]; Falls frequently [R29.6]; Orthostatic hypotension [I95.1] Start: 12-21-2024 Influenza [facility] Start: 12-15-2024 End: 12-15-2024 ambulatory 12/15/2024 9:15 AM EDT Results Only [place] [facility] [address] [facility] [place] [address] [place] [facility] Start: 12-14-2024 End: 03-15-2025 ACETYLCHOLINE REC BINDING AB ACETYLCHOLINE REC BINDING AB Lab Routine Ptosis of right eyelid Hoarseness of voice Expected: 12/14/2024, Expires: 03/15/2025 [facility] Work Phone: Comment on above: Expected: 12/14/2024 , Expires: 03/15/2025 Start: 12-03-2024 End: 12-03-2024 Patient encounter procedure 12/03/2024 9:00 AM EDT Office Visit [facility] [address] [place] [phone] Shivani May NP [address] [place] [phone] [facility] Start: 10-29-2024 End: 10-29-2024 Patient encounter procedure [facility] Comment on above: Arrived Start: 10-15-2024 End: 10-15-2024 Patient encounter procedure [facility] Comment on above: Arrived Start: 09-22-2024 End: 09-22-2024 Patient encounter procedure [facility] Comment on above: Arrived Start: 09-08-2024 End: 09-08-2024 Patient encounter procedure [facility] Comment on above: Acute non-recurrent maxillary sinusitis; Abnormal CT scan, sinus Start: 09-02-2024 End: 09-02-2024 Patient encounter procedure 09/02/2024 3:00 PM EDT Office Visit [facility] [address] [place] [phone] Shivani Adams NP [address] [place] [address] Arrived [facility] Comment on above: Arrived Start: 08-21-2024 End: 08-21-2024 Patient encounter procedure 08/21/2024 2:20 PM EDT Office Visit [facility] [address] [place] [phone] Radha Burris MD [address] [facility] [address] Arrived [facility] Comment on above: Arrived Start: 08-19-2024 End: 08-19-2024 Patient encounter procedure [facility] Comment on above: Arrived Start: 08-10-2024 End: 08-10-2025 25-hydroxyvitamin D3 [Mass/volume] in Serum or Plasma Vitamin D 25 hydroxy Total Lab Routine Vitamin D deficiency Expected: 08/10/2024 (Approximate), Expires: 08/10/2025 [facility] Comment on above: Expected: 08/10/2024 (Approximate), Expires: 08/10/2025 Start: 08-10-2024 End: 08-10-2025 Magnesium [Mass/volume] in Serum or Plasma Magnesium Lab Routine Hypocalcemia Expected: 08/10/2024 (Approximate), Expires: 08/10/2025 [facility] Work Phone: Comment on above: Expected: 08/10/2024 (Approximate), Expires: 08/10/2025 Start: 08-10-2024 End: 08-10-2025 Renal function panel Renal function panel Lab Routine Low serum parathyroid hormone (PTH) Hypocalcemia Expected: 08/10/2024 (Approximate), Expires: 08/10/2025 [facility] Comment on above: Expected: 08/10/2024 (Approximate), Expires: 08/10/2025 Start: 08-10-2024 End: 08-10-2024 Patient encounter procedure [facility] Comment on above: Arrived Start: 07-30-2024 Influenza vaccination Influenza Vacc ine (#1) [facility] Comment on above: Postponed from 12/21 (Patient Refused) Start: 07-22-2024 End: 06-10-2025 TSH W/REFLEX TO FT4 TSH W/REFLEX TO FT4 Lab Routine Acquired hypothyroidism (CMS/HCC) Expected: 07/22/2024 (Approximate), Expires: 06/10/2025 [facility] Work Phone: Comment on above: Expected: 07/22/2024 (Approximate), Expires: 06/10/2025 Start: 07-21-2024 End: 07-21-2024 Patient encounter procedure 07/21/2024 8:00 AM EDT Office Visit [facility] [address] [place] [phone] Shashi Pina DO [address] [place] [phone] [facility] Start: 07-06-2024 End: 07-06-2025 25-hydroxyvitamin D3 [Mass/volume] in Serum or Plasma Vitamin D 25 hydroxy Total Lab Routine Vitamin D deficiency Expected: 07/06/2024 (Approximate), Expires: 07/06/2025 [facility] Comment on above: Expected: 07/06/2024 (Approximate), Expires: 07/06/2025 Start: 07-06-2024 End: 07-06-2025 Calcium, urine, 24 hour Calcium, urine, 24 hour Lab Routine Postsurgical hypoparathyroidism (CMS/HCC) Expected: 07/06/2024 (Approximate), Expires: 07/06/2025 [facility] Comment on above: Expected: 07/06/2024 (Approximate), Expires: 07/06/2025 Start: 07-06-2024 End: 07-06-2025 CREATINE, 24 HOUR URINE CREATINE, 24 HOUR URINE Lab Routine Postsurgical hypoparathyroidism (CMS/HCC) Expected: 07/06/2024 (Approximate), Expires: 07/06/2025 [facility] Work Phone: Comment on above: Expected: 07/06/2024 (Approximate), Expires: 07/06/2025 Start: 07-06-2024 End: 07-06-2025 Magnesium [Mass/volume] in Serum or Plasma Magnesium Lab Routine Postsurgical hypoparathyroidism ([facility]) Expected: 07/06/2024 (Approximate), Expires: 07/06/2025 [facility] Comment on above: Expected: 07/06/2024 (Approximate), Expires: 07/06/2025 Start: 07-06-2024 End: 07-06-2025 Parathyrin.intact [Mass/volume] in Serum or Plasma PTH, intact Lab Routine Postsurgical hypoparathyroidism ([facility]) Expected: 07/06/2024 (Approximate), Expires: 07/06/2025 [facility] Comment on above: Expected: 07/06/2024 (Approximate), Expires: 07/06/2025 Start: 07-06-2024 End: 07-06-2025 Renal function panel Renal function panel Lab Routine Postsurgical hypoparathyroidism ([facility]) Expected: 07/06/2024 (Approximate), Expires: 07/06/2025 [facility] Comment on above: Expected: 07/06/2024 (Approximate), Expires: 07/06/2025 Start: 07-06-2024 End: 07-06-2024 Patient encounter procedure 07/06/2024 10:00 AM EDT Office Visit [facility] [address] [place] [phone] Latoay Redding MD [address] [place] [address] [facility] Start: 06-22-2024 End: 06-22-2025 Acetylcholine receptor, modulating Acetylcholine receptor, modulating Lab Routine Weakness Expected: 06/22/2024 (Approximate), Expires: 06/22/2025 [facility] Work Phone: Comment on above: Expected: 06/22/2024 (Approximate), Expires: 06/22/2025 Start: 06-22-2024 End: 06-22-2025 MR Brain WO and W contrast IV MR brain w and wo contrast routine Imaging High Priority Cranial neuropathy Expected: 06/22/2024, Expires: 06/22/2025 [facility] Comment on above: Expected: 06/22/2024 , Expires: 06/22/2025 Start: 06-22-2024 End: 06-22-2025 MUSK ANTIBODY TEST MUSK ANTIBODY TEST Lab Routine Weakness Expected: 06/22/2024 (Approximate), Expires: 06/22/2025 [facility] Comment on above: Expected: 06/22/2024 (Approximate), Expires: 06/22/2025 Start: 06-09-2024 End: 06-09-2025 Comprehensive metabolic 2000 panel - Serum or Plasma Comprehensive metabolic panel Lab Routine Essential hypertension (CMS/HCC) Expected: 06/09/2024 (Approximate), Expires: 06/09/2025 [facility] Comment on above: Expected: 06/09/2024 (Approximate), Expires: 06/09/2025 Start: 06-09-2024 End: 06-09-2025 CT Chest for screening WO contrast CT lung screening low dose Imaging Routine History of smoking Expected: 06/09/2024, Expires: 06/09/2025 [facility] Comment on above: Expected: 06/09/2024 , Expires: 06/09/2025 Start: 06-09-2024 End: 06-09-2025 Lipid 1996 panel - Serum or Plasma Lipid panel Lab Routine Arteriosclerosis of coronary artery (CMS/HCC) Expected: 06/09/2024 (Approximate), Expires: 06/09/2025 [facility] Work Phone: Comment on above: Expected: 06/09/2024 (Approximate), Expires: 06/09/2025 Start: 06-09-2024 End: 06-09-2025 TSH W/REFLEX TO FT4 TSH W/REFLEX TO FT4 Lab Routine Acquired hypothyroidism (CMS/HCC) Expected: 06/09/2024 (Approximate), Expires: 06/09/2025 [facility] Comment on above: Expected: 06/09/2024 (Approximate), Expires: 06/09/2025 Start: 06-09-2024 End: 06-09-2024 Patient encounter procedure [facility] Comment on above: Arrived Start: 05-19-2024 End: 05-19-2025 Acetylcholine receptor, binding Acetylcholine receptor, binding Lab Routine Ptosis of both eyelids Expected: 05/19/2024 (Approximate), Expires: 05/19/2025 [facility] Work Phone: Comment on above: Expected: 05/19/2024 (Approximate), Expires: 05/19/2025 Start: 05-19-2024 End: 05-19-2025 Acetylcholine receptor, blocking Acetylcholine receptor, blocking Lab Routine Ptosis of both eyelids Expected: 05/19/2024 (Approximate), Expires: 05/19/2025 [facility] Comment on above: Expected: 05/19/2024 (Approximate), Expires: 05/19/2025 Start: 04-22-2024 Advance Directive Discussion Advance Directive Discussion [facility] Start: 03-10-2024 DIABETES SCREEN DIABETES SCREEN [facility] Start: 03-09-2024 Influenza vaccination Influenza Vacc ine (#1) [facility] Comment on above: Postponed from 12/21 (Patient Refused) Start: 03-05-2024 Complete blood count Hemoglobin/Constantino tocrit [facility] Start: 03-05-2024 Creatinine measurement Serum Creatin ine [facility] Start: 02-06-2024 End: 02-06-2024 Patient encounter procedure 02/06/2024 9:00 AM EDT Office Visit [facility] [address] [facility] [place] [phone] Rahda Burris MD [address] [facility] [place] [address] Arrived [facility] Comment on above: Arrived Start: 02-01-2024 Creatinine measurement Basic Metabol ic Panel [facility] Start: 02-01-2024 Pneumococcal Vaccine : 65+ Years (1 - PCV) Pneumococcal Vaccine: 65+ Years (1 - PCV) [facility] Comment on above: Postponed from 05/21 (Patient Refused) Start: 02-01-2024 Pneumococcal Vaccine : 65+ Years (1 of 2 - PCV) Pneumococcal Vaccine: 65+ Years (1 of 2 - PCV) [facility] Comment on above: Postponed from 05/21 (Patient Refused) Start: 02-01-2024 Serum Creatinine Serum Creatinine Cl [facility] Start: 01-24-2024 BP Controlled (<130/80) BP Controlled (<130/80) [facility] Start: 01-13-2024 End: 01-13-2024 Patient encounter procedure 01/13/2024 1:30 PM EDT Office Visit [facility] [address] [place] [phone] Shivani Adams NP [address] [place], [place] [phone] Arrived [facility] Comment on above: Arrived Start: 01-06-2024 Cervical Spine MRI w/o contrast, Complete ([id number]), Body Site: Spine, Sent on: [facility] Start: 01-02-2024 MRI Lumbar Spi ne wo Contrast ([id number]), Body Site: MRI Head/Spine/Chest, Sent on: [facility] Start: 01-01-2024 BP CONTROLLED (<130/80) BP CONTROLLED (<130/80) [facility] Start: 12-24-2023 End: 12-24-2023 Patient encounter procedure 12/24/2023 9:30 AM EDT Office Visit [facility] [address] [place] [phone] Radha Burris MD [address] [place], [place] [phone] [facility] on above: [facility] Start: 12-22-2023 Covid-19 Vaccine ( season) Covid-19 Vaccine ( season) [facility] Start: 12-22-2023 Influenza vaccination Influenza Vacc ine (#1) [facility] Start: 11-22-2023 SERUM CREATININE SERUM CREATININE Cl [facility] Start: 10-20-2023 Influenza vaccination Influenza Vacc ine (#1) [facility] Comment on above: Postponed from 12/21 (Patient Refused) Start: 08-10-2023 Medicare Annual Wellness (AWV) Medicare Annual Wellness (AWV) [facility] Start: 05-31-2023 BP CONTROLLED (<130/80) BP CONTROLLED (<130/80) [facility] Start: 05-31-2023 End: 08-30-2023 [place]/MIGUEL BETHEA SER [facility] Work Phone: Comment on above: Expected: 05/31/2023 , Expires: 08/30/2023 Start: 04-22-2023 Advance Directive Discussion Advance Directive Discussion [facility] Start: 04-22-2023 Depression Assessment Depression Ass essment [facility] Start: 04-16-2023 [facility] Start: 03-21-2023 Patient referral Referrals: Ne urology. [facility] Start: 02-01-2023 End: 02-01-2023 Patient encounter procedure 02/01/2023 1:45 PM EDT Appointment [facility] [address] [place] [phone] [facility] Start: 01-31-2023 End: 02-07-2023 Bacteria identified in Stool by Culture Stool Culture, Test of Cure Microbiology Routine Diarrhea, unspecified type Expected: 01/31/2023 (Approximate), Expires: 02/07/2023 [facility] Work Phone: Comment on above: Expected: 01/31/2023 (Approximate), Expires: 02/07/2023 Start: 01-31-2023 End: 02-01-2024 Basic metabolic 2000 panel - Serum or Plasma [facility] Work Phone: Comment on above: Expected: 01/31/2023 (Approximate), Expires: 02/01/2024 Start: 01-31-2023 End: 02-01-2024 CT Abdomen and Pelvis W contrast IV CT abdomen pelvis w IV contrast Imaging STAT Left lower quadrant abdominal pain Expected: 01/31/2023, Expires: 02/01/2024 [facility] Work Phone: Comment on above: Expected: 01/31/2023 , Expires: 02/01/2024 Start: 01-31-2023 End: 02-07-2023 Stool Pathogen Panel, PCR Stool Pathogen Panel, PCR Microbiology Routine Diarrhea, unspecified type Expected: 01/31/2023 (Approximate), Expires: 02/07/2023 [facility] Work Phone: Comment on above: Expected: 01/31/2023 (Approximate), Expires: 02/07/2023 Start: 01-27-2023 DTaP/Tdap/Td vaccine (2 - Td or Tdap) DTaP/Tdap/Td vaccine (2 - Td or Tdap) [facility] Start: 01-27-2023 DTaP/Tdap/Td Vaccine s (2 - Td or Tdap) DTaP/Tdap/Td Vaccines (2 - Td or Tdap) [facility] Start: 01-27-2023 Tetanus vaccination Tetanus (T d or Tdap) Booster [facility] Start: 01-27-2023 Urine microalbumin profile [facility] Start: 01-01-2023 Diabetes mellitus screening Diabetes Screening [facility] Start: 01-01-2023 Hemoglobin A1c measurement A1C test (Diabetic or Prediabetic) [facility] Start: 01-01-2023 HEMOGLOBIN/HEMATOCRIT HEMOGLOBIN/HEM ATOCRIT [facility] Start: 01-01-2023 Hepatitis B surface antibody level LDL Cholesterol [facility] Start: 12-21-2022 Covid-19 Vaccine ( season) Covid-19 Vaccine ( season) [facility] Start: 12-21-2022 Influenza vaccination C [facility] Start: 12-13-2022 FUV, Provider: Yossi Chen, Status: Pen, Time: 10:45 AM FUV, Provider: Yossi Chen, Status: Pen, Time: 10:45 AM [facility] DO Work Phone: Start: 11-12-2022 NPV, Provider: Yossi hCen, Status: Pen, Time: 2:45 PM NPV, Provider: Yossi Chen, Status: Pen, Time: 2:45 PM [facility] Work Phone: Start: 10-26-2022 VIRFUVHOME, Provider : Arabella Terry, Status: Pen, Time: 3:00 PM VIRFUVRODRIGOE, Provider: Arabella Terry, Status: Pen, Time: 3:00 PM JK-Bjrkgxwdluatax-Ni rma [id number] Work Phone: Start: 10-15-2022 [facility], Provider: Arabella Terry, Status: Pen, Time: 8:00 AM [facility], Provider: Arabella Terry, Status: Pen, Time: 8:00 AM AB-Oqfdendlrgqojd-Jg idman Work Phone: Start: 09-24-2022 VIRFUVRODRIGOE, Provider : Ranjana Perrin, Status: Pen, Time: 8:30 AM VIRFUVHOME, Provider: Ranjana Perrin, Status: Pen, Time: 8:30 AM OA-Tsrnk[facility]jcivz[facility] [address] Work Phone: Start: 09-04-2022 VIRFUVJOSHUA, Provider : Ruby Daily, Status: Pen, Time: 11:30 AM VIRFUVHOME, Provider: Ruby Daily, Status: Pen, Time: 11:30 AM [facility] [address] [place] Work Phone: Start: 08-30-2022 EMOT, Provider: EUGENIE ER PROCEDURE ROOM 10,MG GASTRO, Status: Pen, Time: 8:00 AM EMOT, Provider: ELIAN PROCEDURE ROOM 10,MG GASTRO, Status: Pen, Time: 8:00 AM MD-Kdyqpgyxghraxj-Hz idman Work Phone: Start: 08-30-2022 EGDANS, Provider: Beth Diego, Status: Pen, Time: 7:30 AM EGDANS, Provider: Beth Diego, Status: Pen, Time: 7:30 AM SG-Nvmvamweblpbsv-Jo idman Work Phone: Start: 08-17-2022 NPV, Provider: Arabella Alarcon, Status: Pen, Time: 10:40 AM NPV, Provider: Arabella Terry, Status: Pen, Time: 10:40 AM [facility] [address] [place] Work Phone: Start: 08-13-2022 VIRFUVHOME, Provider : Yoanna Quigley, Status: Pen, Time: 3:15 PM VIRFUVHOME, Provider: Yoanna Quigley, Status: Pen, Time: 3:15 PM [facility] [address] [place] Work Phone: Start: 07-31-2022 VIRFUVHOME, Provider : Ruby Daily, Status: Pen, Time: 12:30 PM VIRFUVHOME, Provider: Ruby Daily, Status: Pen, Time: 12:30 PM ZX-Rkdzcmzsmjprkv-Lk [employer] Work Phone: Start: 05-31-2022 End: 07-31-2022 Comprehensive metabolic 2000 panel - Serum or Plasma COMP METABOLIC PANEL Lab Routine Chronic migraine without aura, intractable, without status migrainosus Expected: 05/31/2022, Expires: 07/31/2022 [facility] Work Phone: Comment on above: Expected: 05/31/2022 , Expires: 07/31/2022 Start: 04-22-2022 ADVANCE DIRECTIVE DISCUSSION ADVANCE DIRECTIVE DISCUSSION [facility] Start: 04-22-2022 DEPRESSION ASSESSMENT DEPRESSION ASS ESSMENT [facility] Start: 03-10-2022 SERUM CREATININE SERUM CREATININE Cl [facility] Start: 01-20-2022 Influenza vaccination Influenza Vacc ine (#1) [facility] Start: 01-05-2022 End: 01-05-2023 Basic metabolic 2000 panel - Serum or Plasma Basic Metabolic Panel Lab Routine EMELIA (acute kidney injury) (HCC) Expected: 01/05/2022, Expires: 01/05/2023 [facility] Work Phone: Comment on above: Expected: 01/05/2022 , Expires: 01/05/2023 Start: 01-05-2022 End: 01-05-2023 CBC W Auto Differential panel - Blood CBC with Auto Differential Lab Routine Acute pancreatitis, unspecified complication status, unspecified pancreatitis type Expected: 01/05/2022, Expires: 01/05/2023 [email or web address] [employer] Work Phone: Comment on above: Expected: 01/05/2022 , Expires: 01/05/2023 Start: 12-21-2021 Influenza vaccination B ON [facility] Start: 07-03-2021 Patient referral [facility] Start: 06-30-2021 Screening for malignant neoplasm of colon [facility] Start: 06-21-2021 End: 06-21-2021 [facility] Start: 06-05-2021 COVID-19 Vaccine (4 - Booster for Moderna series) COVID-19 Vaccine (4 - Booster for Moderna series) [facility] Start: 06-05-2021 COVID-19 VACCINE (4 - Moderna series) COVID-19 VACCINE (4 - Moderna series) [facility] Start: 01-14-2021 Basic metabolic 2000 panel - Serum or Plasma Basic Metabolic Panel [facility] Start: 01-14-2021 Creatinine measurement Basic Metabol ic Panel [facility] Start: 01-05-2021 Thyroid stimulating hormone measurement TSH [facility] Start: 12-15-2020 COVID-19 Vaccine (3 - Booster for Moderna series) COVID-19 Vaccine (3 - Booster for Moderna series) [facility] Start: 02-21-2020 Annual wellness visit Annual W ellness Visit ([id number]) [facility] Start: 12-22-2019 Influenza vaccination Flu vaccine (# 1) [employer] [place], [place] Start: 03-03-2019 MRI Brain with out Contrast NF-Zeuomsbtl-Dpjqziq ld 201 Work Phone: Start: 2018 Abdominal aortic aneurysm screening Abdominal aortic aneurysm scan [facility] Start: 2018 Abdominal Aortic Aneurysm Screening (Age 65+) Abdominal Aortic Aneurysm Screening (Age 65+) [facility] Start: 2018 Pneumococcal 65+ yea rs Vaccine (1 - PCV) Pneumococcal 65+ years Vaccine (1 - PCV) [facility] Start: 2018 Pneumococcal 65+ yea rs Vaccine (1 of 1 - PPSV23) Pneumococcal 65+ years Vaccine (1 of 1 - PPSV23) [place] Start: 2018 Pneumococcal vaccination [facility] Start: 2018 Pneumococcal Vaccine : 65+ (1 - PCV) Pneumococcal Vaccine: 65+ (1 - PCV) [facility] Start: 2018 Pneumococcal Vaccine : 65+ (1 of 1 - PCV) Pneumococcal Vaccine: 65+ (1 of 1 - PCV) [facility] Start: 2018 Pneumococcal Vaccine : 65+ Years (1 - PCV) Pneumococcal Vaccine: 65+ Years (1 - PCV) [facility] Start: 2018 PNEUMOCOCCAL: 65+ (1 - PCV) PNEUMOCOCCAL: 65+ (1 - PCV) [facility] Start: 04-22-2018 Medicare Annual Wellness Visit Medicare Annual Wellness Visit [facility] Start: 2013 Hepatitis B (HBV) Vaccine (optional start 60+ years) Hepatitis B (HBV) Vaccine (optional start 60+ years) [facility] Start: 2013 RSV Vaccine (1 - 1-dose 60+ series) RSV Vaccine (1 - 1-dose 60+ series) [facility] Start: 2013 RSV Vaccine (1 - Ris k 60-74 years 1-dose series) RSV Vaccine (1 - Risk 60-74 years 1-dose series) [facility] Start: 2013 RSV vaccine (optiona l 60+ years) RSV vaccine (optional 60+ years) [facility] Start: 2008 PROSTATE CANCER SCREENING DISCUSSION PROSTATE CANCER SCREENING DISCUSSION [facility] Start: 2003 Measurement of occul t blood in single stool specimen FIT [facility] Start: 2003 Pneumococcal Vaccine : 50+ (1 of 1 - PCV) Pneumococcal Vaccine: 50+ (1 of 1 - PCV) [facility] Start: 2003 Screening for malignant neoplasm of colon [facility] Start: 2003 Shingles (RZV) Vacci ne (1 of 2) Shingles (RZV) Vaccine (1 of 2) [facility] Start: 2003 Shingles Vaccine (1 of 2) Shingles Vaccine (1 of 2) [facility] Start: 2003 SHINGRIX VACCINE (1 of 2) SHINGRIX VACCINE (1 of 2) [facility] Start: 2003 Zoster Vaccines (1 o f 2) Zoster Vaccines (1 of 2) [facility] Start: 1998 COLOGUARD (FIT-DNA) COLOGUARD (FIT-D NA) [facility] Start: 1998 Colonoscopy COLONOSCOPY [facility] Start: 1998 COLORECTAL CANCER SCREENING COLORECTAL CANCER SCREENING [facility] Start: [address] COLONOGRAPHY [facility] Start: 1998 FECAL OCCULT BLOOD FECAL OCCULT BLOO D [facility] Start: 1998 Screening for malignant neoplasm of colon [facility] Start: 1998 SIGMOIDOSCOPY SIGMOIDOSCOPY [facility] Start: 1993 Lipid panel Lipid screen [place], [place] Start: 1988 Lipid 1996 panel - Serum or Plasma Lipid Screening [facility] Start: 1988 Lipid panel Cholesterol [facility] Start: 1988 LIPID SCREEN LIPID SCREEN [facility] Start: 1972 DTaP/Tdap/Td vaccine (1 - Tdap) DTaP/Tdap/Td vaccine (1 - Tdap) [place], [place] Start: 1972 Hepatitis A (HAV) Vaccine (optional start 19+ years) Hepatitis A (HAV) Vaccine (optional start 19+ years) [facility] Start: 1971 ANNUAL PCP TEAM CHRONIC DISEASE VISIT ANNUAL PCP TEAM CHRONIC DISEASE VISIT [facility] Start: 1971 Anxiety Screening Anxiety Screening [facility] Start: 1971 Depression Screening Depression Scre ening [facility] Start: 1971 Hepatitis B surface antibody level LDL CHOLESTEROL [facility] Start: 1971 Hepatitis C screening B ON [facility] Start: 1971 HEPATITIS C SCREENING HEPATITIS C SC ANA [facility] Start: 1965 Depression Screen Depression Screen [facility] Start: 1959 Pneumococcal Vaccine : 65+ Years (1 of 2 - PCV) Pneumococcal Vaccine: 65+ Years (1 of 2 - PCV) [facility] Start: 1953 ABDOMINAL AORTIC ANEURYSM SCREENING ABDOMINAL AORTIC ANEURYSM SCREENING [facility] Start: 1953 Abdominal aortic aneurysm screening Abdominal Aortic Aneurysm Screening [facility] Start: 1953 Hepatitis C screening Hepatitis C [facility] [place] Start: 1953 Lipid panel Lipid Panel [facility] Start: 1953 Medicare Annual Wellness Visit Medicare Annual Wellness Visit (AWV) [facility] Start: 1953 Screening for malignant neoplasm of colon [facility] Start: 1953 Thyroid stimulating hormone measurement TSH Level [facility] End: 01-07-2022 Basic metabolic 2000 panel - Serum or Plasma Basic Metabolic Panel Lab Routine Daily for 3 Days starting 01/05/2022 until 01/07/2022, 1 completed [employer] Phone: Comment on above: Daily for 3 Days sta rting 01/05/2022 until 01/07/2022, 1 completed Continuous pulse oximetry Pulse oximetry, continuous Respiratory Care Routine Every 4hr until discontinued starting 01/01/2022 [employer] Phone: Comment on above: Every 4hr until disc ontinued starting 01/01/2022 Culture, Blood 1 Culture, Blood 1 Microbiology STAT 01/01/2022 12:00 AM EDT [employer] Phone: Culture, Blood 2 Culture, Blood 2 Microbiology STAT 01/01/2022 12:01 AM EDT [employer] Phone: End: 12-31-2021 Intermittent pulse oximetry Pulse Oximetry Spot Check Respiratory Care Routine One Time for 1 Occurrences starting 12/31/2021 until 12/31/2021 [employer] Phone: Comment on above: One Time for 1 Occur rences starting 12/31/2021 until 12/31/2021 End: 06-30-2023 Mra head w/o contrst material [facility] Work Phone: Comment on above: 1 Occurrences starti ng 05/31/2022 until 06/30/2023 Oxygen therapy [Minimum Data Set] Initiate Oxygen Therapy Protocol Respiratory Care Routine As Needed until discontinued starting 12/31/2021 [facility] Work Phone: Comment on above: As Needed until disc ontinued starting 12/31/2021 Patient Education Colon polyps H emorrhoids (DC) [facility] Work Phone: Surgical Pathology Surgical Path ology Lab Routine Gall stone pancreatitis Release Upon Ordering for 1 Occurrences starting 01/02/2022 [facility] [employer] Work Phone: Comment on above: Release Upon Orderin g for 1 Occurrences starting 01/02/2022 BT-Fwnvmsecj-Og jolene ld 201 Work Phone: [facility] NEGATED: Highlighted row has been ruled out! Planned Goals not documented XI-Ywxdoyyjs-Ibuaugp ld 201 Work Phone: Immunizations Immunization Date Immunization Notes Care Provider [facility] 07-15-2020 Moderna (primary 12+ yrs) COVID-19 vaccine, mRNA, spike protein, LNP, PF, 100 mcg/0.5 mL (KYA=446) Radha Burris MD Work Phone: [facility] 07-14-2020 Moderna SARS-CoV-2 Vaccination Generic Provider [facility] 06-17-2020 Moderna (primary 12+ yrs) COVID-19 vaccine, mRNA, spike protein, LNP, PF, 100 mcg/0.5 mL (QPW=228) Radha Burris MD Work Phone: [facility] 06-16-2020 Moderna SARS-CoV-2 Vaccination Generic Provider [facility] 01-28-2016 influenza, injectable, quadrivalent, preservative free Radha Burris MD Work Phone: [facility] 01-28-2016 influenza virus vaccine, unspecified formulation Radha Burris MD Work Phone: [facility] 01-27-2013 tetanus toxoid, reduced diphtheria toxoid, and acellular pertussis vaccine, adsorbed [facility] NEGATED: Highlighted row has not occurred!04-28-2019 influenza, high dose seasonal, preservative-free Patient Objection Thor Fox Other [employer] Other NEGATED: Highlighted row has not occurred!06-14-2015 influenza, injectable,quadriva lent, preservative free, pediatric Patient Objection Thor Fox Other [employer] Other Payers Date Payer Category Payer Self-pay [id number] 2020 Private Health Insurance [id number] 2019 Unknown [id number] [id number] 2018 Medicare [id number] [id number] 1959 Medicare [id number] 1959 Unknown [id number] 1953 Unknown [id number] 2.16.8 40.1.307255.3.579.2.355 1953 Unknown [id number] 2.16.84 0.1.298682.3.579.2.185 1953 Unknown [id number] 2.16. 840.1.993655.3.579.2.732 1953 Unknown [id number] 2.16.8 40.1.662391.3.579.2.647 1953 Unknown [id number] 2.16.8 40.1.082141.3.579.2.647 1953 Unknown [id number] 2.16.8 40.1.680175.3.579.2.647 1953 Unknown [id number] 2.16. 840.1.405912.3.579.2.175 1953 Unknown [id number] 2.16.84 0.1.043810.3.579.2.593 1953 Unknown [id number] 2.16.84 0.1.663499.3.579.2.593 1953 Unknown [id number] 2.16.84 0.1.346089.3.579.2.593 1953 Unknown [id number] 2.16.84 0.1.903311.3.579.2.593 1953 Unknown [id number] 2.16.84 0.1.728174.3.579.2.593 1953 Unknown [id number] 2.16.84 0.1.464873.3.579.2.593 1953 Unknown [id number] 2.16.84 0.1.234166.3.579.2.593 1953 Unknown [id number] 2.16.84 0.1.809757.3.579.2.593 1953 Unknown [id number] 2.16.84 0.1.043672.3.579.2.593 1953 Unknown [id number] 2.16.84 0.1.829170.3.579.2.593 1953 Unknown [id number] 2.16.84 0.1.959813.3.579.2.593 1953 Unknown [id number] 2.16.84 0.1.610256.3.579.2.593 1953 Unknown [id number] 2.16.84 0.1.072120.3.579.2.593 1953 Unknown [id number] 2.16. 840.1.396544.3.579.2.356 1953 Unknown [id number] 2.16.8 40.1.285776.3.579.2.6 1953 Unknown [id number] 2.16.8 40.1.897144.3.579.2.1045 1953 Unknown [id number] 2.16.8 40.1.624231.3.579.2.1045 1953 Unknown [id number] 2.16.8 40.1.532030.3.579.2.1045 1953 Unknown [id number] 2.16.8 40.1.994830.3.579.2.1045 1953 Unknown [id number] 2.16. 840.1.769236.3.579.2. 1953 Unknown [id number] 2.16. 840.1.460482.3.579.2. 1953 Unknown [id number] 2.16. 840.1.628102.3.579.2. 1953 Unknown [id number] 2.16. 840.1.587669.3.579.2. 1953 Unknown [id number] 2.16. 840.1.960316.3.579.2. 1953 Unknown [id number] 2.16. 840.1.838866.3.579.2. 1953 Unknown [id number] 2.16. 840.1.092660.3.579.2. 1953 Unknown [id number] 2.16. 840.1.729035.3.579.2. 1953 Unknown [id number] 2.16. 840.1.647234.3.579.2. 1953 Unknown [id number] 2.16. 840.1.978345.3.579.2. 1953 Unknown [id number] 2.16. 840.1.360872.3.579.2.356 1953 Unknown [id number] 2.16. 840.1.474915.3.579.2.356 1953 Unknown [id number] 2.16. 840.1.605943.3.579.2.356 1953 Unknown [id number] 2.16.8 40.1.329150.3.579.2.1068 1953 Unknown [id number] 2.16.8 40.1.507573.3.579.2.1068 1953 Unknown [id number] 2.16.8 40.1.502736.3.579.2.1244 1953 Unknown [id number] 2.16.84 0.1.905592.3.579.2.1245 1953 Unknown [id number] 2.16.84 0.1.199761.3.579.2.1245 1953 Unknown [id number] 2.16.8 40.1.839873.3.579.2.1246 1953 Unknown [id number] 2.16.84 0.1.603026.3.579.2.1314 1953 Unknown [id number] 2.16.8 40.1.440899.3.579.2.727 1953 Unknown [id number] 2.16.8 40.1.505340.3.579.2.727 1953 Unknown [id number] 2.16.8 40.1.879270.3.579.2.727 1953 Unknown [id number] 2.16.8 40.1.151378.3.579.2.1259 1953 Unknown [id number] 2.16.8 40.1.280982.3.579.2.1259 1953 Unknown [id number] 2.16.8 40.1.889336.3.579.2.1259 1953 Unknown [id number] 2.16.84 0.1.980031.3.579.2.125 1953 Unknown [id number] 2.16.84 0.1.074095.3.579.2.1258 1953 Unknown [id number] 2.16.84 0.1.481399.3.579.2.1258 1953 Unknown [id number] 2.16.84 0.1.273956.3.579.2.1258 1953 Unknown [id number] 2.16.84 0.1.687581.3.579.2.1258 1953 Unknown [id number] 2.16.84 0.1.096871.3.579.2.1258 1953 Unknown [id number] 2.16.84 0.1.848447.3.579.2.1258 1953 Unknown [id number] 2.16.84 0.1.265608.3.579.2.1258 1953 Unknown [id number] 2.16.84 0.1.789034.3.579.2.1258 1953 Unknown [id number] 2.16.84 0.1.805350.3.579.2.1258 1953 Unknown [id number] 2.16.84 0.1.002812.3.579.2.1258 1953 Unknown [id number] 2.16.84 0.1.689373.3.579.2.1258 1953 Unknown [id number] 2.16.84 0.1.384525.3.579.2.1258 1953 Unknown [id number] 2.16.84 0.1.473308.3.579.2.1259 Private Health Insurance [id number] Unknown [id number] 2.16.8 40.1.232328.3.579.2.531 Unknown [id number] 2.16.8 40.1.019825.3.579.2.531 Social History Date Type Detail Facility Assertion Unknown if ever smoked [facility] Work Phone: Start: 1955 Sex Assigned At Not on file [facility], [place] Start: 06-29-2021 End: 09-13-2022 Sex Assigned At [facility] Start: 01-01-2022 Tobacco smoking stat [facility] Never smoked tobacco [facility] Work Phone: Start: 01-01-2022 End: 12-31-2022 Tobacco use and exposure Smokeless tobacco non-user [employer] Phone: Start: 12-21-2021 End: 01-31-2023 Exposure to SARS-CoV-2 (event) Not sure [employer] Phone: Start: 01-06-2020 End: 12-31-2022 Tobacco smoking status PAIS Ex-smoker [facility] Start: 04-22-1967 End: 01-06-1984 History of tobacco use [facility] Start: 04-22-1967 End: 01-06-1984 History of tobacco use Cigarette Smoker [facility] Start: 01-27-2020 End: 11-10-2024 Alcohol intake Current drinker of alcohol (finding) [facility] Start: 01-27-2020 End: 09-13-2022 Alcohol intake [facility] Start: 01-06-2020 History SDOH Alcohol Frequency 2 [facility] Start: 05-04-2021 Alcohol Comment 1 beer once a month [facility] Start: 03-23-2012 Adult Depression Screening Assessment 1 [facility] Start: 01-02-2024 End: 01-06-2024 Tobacco smoking status PAIS Tobacco smoking consumption unknown [facility] Work Phone: Start: 1955 Sex Assigned At Male F [facility] Within the last year , [...] Identifies as male gender (finding) [facility] Start: 12-01-2020 Alcohol Comment one half of a beer once a month [facility] Start: 03-28-2021 End: 04-27-2021 Exposure to SARS-CoV-2 (event) Unable to assess [facility] Start: 01-02-2024 Alcohol intake Alcohol Use Details [facility] on [facility]: [facility] 1983 Start: 02-06-2021 Sexual Orientation Straight or heterosexual [facility] Start: 01-25-2023 Sexual Orientation [facility] to dis [facility] Are you now , , , , never or living with a partner? [facility] History of tobacco use Pipe Smoker [facility] History of tobacco use Cigar Smoker [facility] Start: 08-21-2024 Alcohol Comment Caffeine intak e: 1 cups per day of coffee [facility] Tobacco smoking status [facility] Start: 01-22-2019 Sex Male (finding) [facility] Medical Equipment Procedure Code Equipment Code Equipment Origin al Text Equipment Identifier Dates Gas Ispan [employer] Intraocular Vision System [id number] 125gm - [id number] Start: 10-15-2017 Lens Iol Ultrase rt 16 - [id number] Start: 10-15-2017 Sleeve 2.4mm 1.5 mm Silicone 30mm Scleral Round Sterile - [id number] Start: 10-15-2017 Strip Silicone [id number] Retinal 9229 Sterile - [id number] Start: 10-15-2017 Goals Date Patient Goal Desired Activity /State Functional Status Date Assessment Result Facility 12-15-2020 Are you deaf, or do you have serious difficulty hearing No 12/15/2020 12:20 PM EDT Kathie Lee, BRENNA.FUEL TECHNICIAN No [facility] Work Phone: 12-15-2020 Are you blind, or do you have serious difficulty seeing, even when wearing glasses No 12/15/2020 12:20 PM EDT Kathie Lee, BRENNA.FUEL TECHNICIAN [facility] 12-15-2020 Do you have serious difficulty walking or climbing stairs No 12/15/2020 12:20 PM EDT Kathie Lee, PAPERHANGER.FUEL TECHNICIAN No [facility] 12-15-2020 Do you have difficul ty dressing or bathing No 12/15/2020 12:20 PM EDT Kathie Lee, PAPERHANGER.FUEL TECHNICIAN [facility] 12-15-2020 Because of a physica l, mental, or emotional condition, do you have difficulty doing errands alone such as visiting a physician's office or shopping No 12/15/2020 12:20 PM EDT Kathie Lee, PAPERHANGER.FUEL TECHNICIAN No [facility] NEGATED: Highlighted row Functional performance Functional status health issues are not documented Disease [facility]tm[facility] Work Phone: Mental Status Date Assessment Result Facility 12-15-2020 Because of a physical, mental, or emotional condition, do you have serious difficulty concentrating, remembering, or making decisions No 12/15/2020 12:20 PM EDT Kathie Lee, BRENNA.FUEL TECHNICIAN No [facility] NEGATED: Highlighted row Cognitive function [Interpretation] Cognitive status health issues are not documented Disease AC-Lpfgfjvaz-Iluflqt ld 201 Work Phone: Clinical Notes 2018 to 12-15-2024 Telephone Encounter - Umberto Sweetamita Hinojosa - 12/15/2024 11:36 AM EDTTelephone Encounter - Shaylee Sweet Ashish - 12/15/2024 11:36 AM EDTPatient Melva Burris DO - 10/29/2024 1:15 PM EDT Note Date & Type Note Facility 12-15-2024 Telephone encounter Note Type of record received: Labs Records received from: [facility] Records received via: Faxed Records scanned into Epic: Yes Records have been forwarded to: Lawrence [facility] 12-15-2024 Miscellaneous Notes Type of record received: Labs Records received from: [facility] Records received via: Faxed Records scanned into Epic: Yes Records have been forwarded to: Lawrence documented in this encounter [facility] 11-10-2024 Instructions Abby Bernstein APRN.CNP - 11/10/2024 12:36 PM EDT PLAN: Consult to movement clinic Send me AChR and Musk labs please Follow up in 3 months documented in this encounter [facility] 11-10-2024 History of Presen t illness Narrative Images from the original note were not included. [facility] Follow Up Yoli Antunez is a 69 year old male who presents today for follow up regarding [place] PMH: AAA Arthritis CKD state 3 CAD Personal history of smoking ZONIA GOUT HLD HTN Hypothyroid ADA with BIPAP RLS TIA Chart Review: María Pearl APRN.CNP IMPRESSION/PLAN: Orthostatic hypotension Tilt table testing indicative of orthostatic hypotension. This would likely explain his symptoms of orthostatic lightheadedness and near syncope. He notes that since the tilt table test, his Benazepril and Diltiazem have been discontinued, but his orthostatic symptoms persist. He was seen by Dr. Vilchis at [facility] who would like to place a [...] medication perspective given his tendency toward hypertension. Today November 10, 2024: Orthostatic Hypotension: - Last seen by María Pearl on 05/31/2023 for orthostatic hypotension. - Pacemaker placed last fall by Dr. Vilchis; no improvement in symptoms. - Reports worsening dizziness and blood pressure fluctuations. - BP this morning was 160/101 mmHg; notes rapid drops in BP. - Taking sotalol and midodrine; midodrine prescribed by Dr. Vilchis for low BP and dizziness, but Jamil reports no improvement. - Drinking approximately half a gallon of water daily. - Avoids compression socks. - Denies LOC episodes. Sick Sinus Syndrome: - Pacemaker placed last fall by Dr. Vilchis; no improvement in symptoms. Falls: - At least a dozen falls in the past year, including one this morning while going up steps. - Denies head trauma during falls. - Reports imbalance and swaying when dizzy. - Difficulty with stairs, especially going up. - Issues getting out of a seated position without using arms if the seat is low. - Denies issues with fine dexterity or reaching overhead. Right Eyelid Ptosis: - Right eyelid ptosis began 6-8 months ago. - Seen by a local neurologist; referral sent to the current clinic. - Reports voice hoarseness and swallowing issues. - No issues with speech or chewing fatigue. - Denies tremors. CKD: - History of CKD. - Following a low sodium diet; no other major dietary restrictions. - Denies urinary issues. Back Pain: - History of lower back surgery (L4, L5). - Denies current back pain. Neuropathy: - Reports random numbness and tingling in the left hand, occurring about once a week. - Denies numbness or tingling in the legs. - Denies muscle twitching; reports leg cramping at night. - Denies tremors. Exercise: - Participated in cardiac rehab but experienced BP drops with activity. - Uses a recumbent exercise bike at home 3 times a week for 30 minutes. 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 Neuromuscular: Difficulty with gait: no Falls: yes Difficulty with stairs: yes Difficulty getting out of seated position: sometimes if its too low Difficulty with manual dexterity (buttons, zippers, cutting food): no Difficulty reaching overhead (opening cabinets, washing hair, brushing teeth): no Ocular weakness (ptosis, diplopia): yes - ptosis right eye Bulbar weakness (fatigue with chewing, dysphagia, dysarthria): swallowing issues, voice goes away and more raspy now. Voice goes away at any point in time of the day. Like he runs out of air trying to talk Dyspnea on exertion and/or orthopnea: with walking at times Numbness/tingling: in left arm once per week. random Pain: no - history of back surgery lower back - L4-L5 Muscle twitching/cramping: legs cramp at night - wrapping the legs at night help the craming Orthostatic lightheadedness: yes GI dysmotility: occasionally Urinary symptoms: no Sleep disorders: no Tremor: no Current management of orthostatic condition Diet: low sodium diet Exercise: tried cardiac rehab Water: half gallon Salt: low salt Stockings: no Current Medications for orthostatic condition Sotalol Midodrine - this has not helped with the dizzy spells at all Prior Medications for orthostatic condition Pyridostigmine Relevant Work Up To Date Skin Biopsy 03/06/2023 IMPRESSION: There is a reduction of the epidermal nerve fiber density at the distal thigh. 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 However, this finding would be atypical for generalized small fiber sensory neuropathy. ---- Cardiac tilt 01/24/2023 * FINAL IMPRESSIONS * - The test [...] developed on his prior tilt as well. Stage Sbp Dbp Hr Ecg Symptoms Comments C-01 102 68 58 12L 1440 C-02 106 61 55 C-03 105 62 55 Arm Cuff BP's in this column C-Mean 104 64 56 Baseline continuous BP: 107/63 30- 105 69 60 12L 1445; 94/65 30-02 102 69 59 DIZZINESS 30-03 45-01 96 67 64 DIZZINESS, 12L 1447; 96/64 INCREASING 45-02 100 69 66 45-03 70-01 91 68 76 SEE NOTE, [id number] ; feels like something is pulling on his eyes 70- 98 69 72 CH. PAIN 3/10 chest pain; 12L 1450; 98/60 70-03 98 66 74 CH. PAIN, 5/10 pain scale; patient not INCREASING verbally responding symptom questions 70-04 102 69 70 70-05 96 66 72 113/78 70-06 98 70 77 70-07 99 70 76 CH. PAIN, SEE pain is coming in waves 5/10 NOTE 70-08 99 72 82 HEADACHE 70-09 79 50 75 DIZZINESS, LIGHTHEADED 70-10 82 53 71 12L 1458; 99/72 70-11 70-10 test was stop due to patient 70-12 increase of symptoms, drop in B/P 70-13 NO LOC 70-14 70-15 70-16 70-17 70-18 70-19 70-20 70-21 70-22 70-23 70-24 70-25 70-26 70-27 70-28 70-29 70-30 70-31 70-32 70-33 70-34 70-35 70-36 70-37 70-38 70-39 70-40 70-41 70-42 70-43 70-44 70-45 REC-01 83 53 59 SEE NOTE 12L 1500; 115/72; no symptom change in recovery one REC-02 99 63 58 REC-03 92 59 61 SEE NOTE symptoms are improving REC-04 73 finger cuff recalibrating; 116/72 REC-05 114 77 59 12L 1504; 112/74 ---- Labs: BMP - elevated creat, low GFR, BNP, CBC - unremarkable Musk and AChR will be sent in by patient for further review. Radiology: MRI Brain 07/14/2024 Impression No acute or subacute intracranial abnormalities. No MRI findings to account for the patient's reported ocular symptoms. If symptoms persist dedicated MRI of the orbits may be warranted. MRA Head and/or Neck - Last 2 Impressions MRA BRAIN WO/W IVCON Exam End: 07/09/2022 3:26 PM (Final result) Impression: No focal stenosis, occlusion, or aneurysmal dilatation. Complete [place] of [place]. Electronically signed: Cher Castaneda. CT Head/Brain - Last [address] BRAIN WO IVCON Exam End: 03/05/2023 5:07 PM (Final result) Impression: No definite acute intracranial abnormality. Electronically signed: Damian Collier. CT BRAIN WO IVCON Exam End: 10/31/2022 3:00 PM (Final result) Impression: There are no acute intracranial changes. ELECTRONICALLY SIGNED BY: Fer Nava MD The patient's prior records were reviewed including and lab testing, imaging, and procedures done since their last visit with me. Review of symptoms including constitutional, eyes, ENT, neck, respiratory, cardiovascular, GI, , musculoskeletal, hematologic, oncologic, endocrine, and psychiatric categories is unchanged. No new details in the family history or social history were offered by the patient. Medications Reviewed sotalol (BETAPACE) 120 mg tablet Take 120 mg by mouth every 12 hours. midodrine (PROAMITINE) 5 mg tablet Take 5 mg by mouth three times a day. magnesium oxide (MAG-OX) 400 mg (241.3 mg magnesium) tablet Take 235 mg by mouth two times a day. levothyroxine (SYNTHROID) 150 mcg tablet Take 150 mcg by mouth daily before breakfast. ergocalciferol 50,000 unit capsule (VITAMIN D2, DRISDOL) [...] 2 mg by mouth daily at bedtime. ALLERGIES Allergen Reactions Penicillins Unknown Tikosyn [Dofetilide] Other: See Comments Aphasia, dizzy, muscle cramps Vancomycin Anaphylaxis PAST MEDICAL HISTORY: PAST MEDICAL HISTORY Diagnosis Date AAA (abdominal aortic aneurysm) without rupture Arthritis Atrial fibrillation/flutter ([facility]) CAD (coronary artery disease) CKD (chronic kidney disease) stage 3, GFR 30-59 ml/min ([facility]) Ex-smoker Gastric ulcer GERD (gastroesophageal reflux disease) Gout History of GI bleed HLD (hyperlipidemia) Hypertension 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 ADA treated with BiPAP Peripheral neuropathy Restless leg syndrome TIA (transient ischemic attack) x 2 PAST SURGICAL HISTORY Procedure Laterality Date APPENDECTOMY 04/22/1978 ATRIAL FIBRILLATION/FLUTTER ABLATION 12/08/2019 x 3 LAMINECTOMY W/O FFD 1/2 VERT SEG LUMBAR 04/22/1989 Laminectomy, lumbar PAST SURGICAL HISTORY OF cervical spine - 3 plates/screws PAST SURGICAL HISTORY OF s/p retinal detachment repair THYROIDECTOMY TOTAL/COMPLETE 09/2018 TONSILLECTOMY HX TOTAL KNEE REPLACEMENT Bilateral Social History Tobacco Use Smoking status: Former Current packs/day: 0.00 Average packs/day: 2.0 packs/day for 15.0 years (30.0 ttl pk-yrs) Types: Cigarettes Start date: 09/12/1968 Quit date: 09/13/1983 Years since quittin.1 Smokeless tobacco: Never Vaping Use Vaping status: Never Used Substance [...] daughter; spina bifida occulta in his son. BP 127/86 (BP Site: Left Arm, BP Position: Sitting, BP Cuff Size: Large Adult) Pulse 83 Ht 198.1 cm (6' 6 ) Wt 111.1 kg (245 lb) SpO2 98% BMI 28.31 kg/m 11/10/24 1121 11/10/24 1206 11/10/24 1207 11/10/24 1208 BP: 127/86 Pulse: 83 SpO2: 98% Height: 198.1 cm (6' 6 ) Weight: 111.1 kg (245 lb) Orthostatic BP: 128/88 120/83 120/87 BP Position: Sitting Supine Standing Standing Orthostatic Pulse: 89 90 86 Neurological Examination: Cognition The patient is alert and oriented times four Lucid and organized in conversation Able to provide detailed medical hx Speech Speech is Normal in fluency, volume, and clarity; no dysarthria Raspy voice Content and syntax are coherent Comprehension: Able to follow several step commands Cranial Nerves Ptosis on right with twitching PERRlA Visual fernandez are full to confrontation Extraocular movements are intact - smooth saccades and pursuits; No nystagmus Facial motor exam is strong and symmetric Equal sensation of trigeminal nerve - V1,V2, and V3 Soft palate elevation is symmetric, tongue is in midline, no tongue fasciculation. Neck range of motion is full Trapezius Strength is symmetric, graded 5/5 Tone and Bulk Tone and bulk is normal and preserved bilaterally of arms Tone and bulk is normal and preserved bilaterally of legs No apparent muscle atrophy No pes cavus or hammer toes Motor Examination: Right Upper Extremity: (of 5) Left Upper Extremity: (of 5) Shoulder Abduction Deltoid (Ax/C5) 5 Shoulder Abduction 5 Elbow Flexion Biceps (MC/R and C5/6) 5 Elbow Flexion 5 Elbow Extension Triceps (R/C7) 5 Elbow Extension 5 Wrist Flexion (M/U and C6/7) 5 Wrist Flexion 5 Wrist Extension (R/C7) 5 Wrist Extension 5 Finger Abduction (U/C8) 5 Finger Abduction 5 Finger Adduction Ulnar (C8) 5 Finger Adduction 5 Finger Extension (R/C7) 5 Finger Extension 5 Finger Flexion (M&Ul/C6,7,8) 4&5th digits - ulnar 2&3 digits - median 5 Finger Flexion 5 FPL (Spared in CTS) 5 FPL 5 Thumb Abduction Median (T1) 5 Thumb Abduction 5 Right Lower Extremity: (of 5) Left Lower Extremity: (of 5) Hip Flexion Iliopsoas (L2-3) 5 Hip Flexion 5 Hip Adduction Obturator (L2-L4) 5- Hip Adduction 5- Hip Abduction Gluteus medius (L5-S1) 5 Hip Abduction 5 Knee Extension Quadriceps (L3-4) 5 Knee Extension 5 Knee Flexion Hamstrings (L5-S1) 5- Knee Flexion 5- Dorsiflexion Tibialis Anterior (DP and L4/5) 5 Dorsiflexion 5 Plantarflexion Gastrocnemius/Soleus (S1/2) 5 Plantarflexion 5 Ankle Inversion Tibialis posterior (L5) 5 Ankle Inversion 5 Ankle Eversion Peroneals (S1) 5 Ankle Eversion 5 Reflexes Right Left Bicep (C5-6MC) 2/4 2/4 Tricep (C7-8R) 2/4 2/4 BrRad (C5-6R) 2/4 2/4 Knee (L3-4F) 2/4 2/4 Ankle (S1-2S) 1/4 1/4 No Clonus Negative Babinski (toes curl down) Gonzales sign not present Sensation: Intact to light touch bilaterally. Normal proprioception (toe position and thumb). Normal finger vibration and toe vibration. Temperature: decreased to BL feet Pinprick: increased pain sensation to pinprick to BL lower extremities Movement/Coordination Finger-to- nose-finger and [id number]-[id number] intact bilaterally. No evidence of ataxia arms. No limb dysmetria of arms and legs. Rapid alternating movements of pronation and supination, finger and hand tapping intact. There is no asterixis of the hands. No rigidity, or bradykinesia. Positive cog wheeling BUE No tremors No extrapyramidal findings or dystonia Gait Able to stand without upper body assistance. Normal station and stride. No festination or retropulsion. Normal toe, heel, and tandem walk. Decreased arm swing on right Romberg's sign moderate sway Assessment & Plan 11/10/2024 - Neuromuscular, Abby Bernstein APRN.FUEL TECHNICIAN ASSESSMENT Yoli Antunez is a 69 year old who is here today for follow up for orthostatic hypotension. He is a previous patient of María Pearl APRN.CNP who is no longer with the neurological institute. In the interim, ongoing symptoms of dizziness and lightheadedness persist despite pacemaker placement last February and current medication regimen including sotalol and midodrine. Patient reports at least a dozen falls in the past year, with increased frequency recently. Random occasional numbness and tingling in left hand occurring approximately once a week that has been ongoing. Orthostatic hypotension confirmed by previous tilt table test. Orthostatic vital signs today were stable, but patient experienced dizziness upon standing. Advised patient to monitor blood pressure before taking midodrine and to avoid taking it if systolic BP is elevated. Educated on avoiding lying flat for 3-4 hours post midodrine administration. Continue current medications and follow up with prescribing provider for further management. Discuss holding parameters with prescribing provider for clarification given his BP fluctuations. Separately, he endorses right eyelid ptosis observed on exam, with onset approximately 6-8 months ago. Intermittent hoarseness and voice loss reported, occurring at various times of the day. Differential diagnosis includes myasthenia gravis. Patient had previous ACHR and MuSK antibody tests completed with local neurology who referred him to our clinic; requested patient to send results for further review as these are currently unable to view. Sensory exam revealed increased pinprick sensation to BL legs in patchy distrubution that does not follow a dermatome, gait exam revealed decreased arm swing on one side, positive cog wheeling BUE, mild weakness noted on BLE, hyporeflexia at ankle level, ptosis right eye with twitching, hoarseness in voice. PLAN 1.Consult to movement clinic given cog wheeling, decreased arm swing, moderate sway with romberg, and OH noted on Tilt table testing (although not evident on today's vitals) for further evaluation of a movement disorder. 2.Send me AChR and Musk labs please for further review. Will discuss this case and findings with neuromuscular physician and MyChart message patient for any additional testing / recommendations at that time. 3.Follow up in 3 months Encounter Diagnosis ICD-10-CM 1. Orthostatic lightheadedness R42 CONSULT TO NEUROLOGY 2. Ptosis of right eyelid H02.401 CANCELED: ACETYLCHOLINE REC BINDING AB 3. Hoarseness of voice R49.0 CANCELED: ACETYLCHOLINE REC BINDING AB 4. Disturbance of skin sensation R20.9 CONSULT TO NEUROLOGY 5. Abnormality of gait and mobility R26.9 CONSULT TO NEUROLOGY 6. Falls frequently R29.6 CONSULT TO NEUROLOGY 7. Orthostatic hypotension I95.1 CONSULT TO NEUROLOGY 8. Voice disturbance R49.9 Return in about 3 months (around 02/10/2025). I spent a total of 60 minutes on the date of the service which included preparing to see the patient, [id number] patient care, completing clinical documentation, obtaining and/or reviewing separately obtained history, performing a medically appropriate examination, counseling and educating the patient/family/caregiver, and communicating with other HCPs (not separately reported). During our face to face clinical encounter we discussed my concerns neurologically in terms of diagnosis, impact on health and activities of living, and addressed questions. I tried to reassure the patient and also address questions. I explained to the patient to call if any questions, to review results, and I want to see them return for neurological follow up as mychart as next steps of communication is agreed upon Patient verbalizes understanding and I have addressed concerns and questions at this visit Patient has my contacts, educational material provided, and my chart sign up. After visit summary discussed. Office Visit on 11/10/24 ACETYLCHOLINE REC BINDING AB *Canceled* CONSULT TO NEUROLOGY Abby Bernstein APRN.[facility] Neuromuscular Medicine [address] [place]. [address] Appointment: [phone] 1. This office note has been dictated and may contain minor typographic errors that escaped review 2. The nursing staff and medical assistants are a major part of YOUR TREATMENT TEAM and will be handling your phone calls and inquiries, if any. Unless explicitly told otherwise at the time of your office visit, your study results and ensuing treatment plans will be discussed during your follow-up appointment. If you do not have a follow-up appointment and wish to discuss any issues directly with me, please feel free to obtain one. 3. It is my practice to not fill disability or any other insurance-related forms/documention. All of the office notes, study results, and other pertinent documentation generated as part of your evaluation will be available to you and to your Primary Care Physician (PCP). Use of this material to complete such forms will be at the discretion of your PCP/referring physician Answers submitted by the patient for this visit: Compass 31 (Submitted on 11/03/2024) In the past year, have you ever [...] sweat much more than I used to Does your mouth feel excessively dry? : [...] persistently full (bloated feeling) after a meal?: Sometimes In the past year, have you vomited after a meal? : Never In the past year, have you had a cramping or colicky abdominal pain?: Never In the past year, have you had any bouts of diarrhea?: Yes In the past year, have you been constipated? : Yes In the past year, have you ever lost control of your bladder function?: Occasionally In the past year, have you had difficulty passing urine?: Occasionally In the past year, have you had trouble completely emptying your bladder?: Occasionally In the past year, without sunglasses or tinted glasses, has bright light bothered your eyes?: Frequently In the past year, have you had trouble focusing your eyes?: Occasionally Is this most troublesome symptom with your eyes (i.e. sensitivity to bright light or trouble focusing) getting:: Getting somewhat worse (Submitted on 11/03/2024) When standing up, how frequently do you get these feelings or symptoms?: Frequently How would you rate the severity of these feelings or symptoms?: Moderate In the past year, have these feelings or symptoms that you have experienced:: Gotten somewhat worse (Submitted on 11/03/2024) How frequently does this occur?: Frequently How severe are these bouts of diarrhea?: Moderate Are your bouts with diarrhea getting:: Somewhat better (Submitted on 11/03/2024) How frequently are you constipated? : Rarely How severe are these episodes of constipation? : Mild Is your constipation getting:: Somewhat better (Submitted on 11/03/2024) How severe is this sensitivity to bright light?: Moderate (Submitted on 11/03/2024) How severe is this focusing problem? : Moderate documented in this encounter [facility] 11-10-2024 Note HNO ID: [id number] Author: ABBY BERNSTEIN APRN.NEETU Service: ? Author Type: Nurse Practitioner Type: Progress Notes Filed: 11/10/2024 13:31 Note Text: [facility] Follow Up Yoli Antunez is a 69 year old male who presents today for follow up regarding OH PMH: AAA Arthritis CKD state 3 CAD Personal history of smoking ZONIA GOUT HLD HTN Hypothyroid ADA with BIPAP RLS TIA Chart Review: María Pearl APRN.NEETU IMPRESSION/PLAN: Orthostatic hypotension Tilt table testing indicative of orthostatic hypotension. This would likely explain his symptoms of orthostatic lightheadedness and near syncope. He notes that since the tilt table test, his Benazepril and Diltiazem have been discontinued, but his orthostatic symptoms persist. He was seen by Dr. Vilchis at [facility] who would like to place a [...] medication perspective given his tendency toward hypertension. Today November 10, 2024: Orthostatic Hypotension: - Last seen by María Pearl on 05/31/2023 for orthostatic hypotension. - Pacemaker placed last fall by Dr. Vilchis; no improvement in symptoms. - Reports worsening dizziness and blood pressure fluctuations. - BP this morning was 160/101 mmHg; notes rapid drops in BP. - Taking sotalol and midodrine; midodrine prescribed by Dr. Vilchis for low BP and dizziness, but Jamil reports no improvement. - Drinking approximately half a gallon of water daily. - Avoids compression socks. - Denies LOC episodes. Sick Sinus Syndrome: - Pacemaker placed last fall by Dr. Vilchis; no improvement in symptoms. Falls: - At least a dozen falls in the past year, including one this morning while going up steps. - Denies head trauma during falls. - Reports imbalance and swaying when dizzy. - Difficulty with stairs, especially going up. - Issues getting out of a seated position without using arms if the seat is low. - Denies issues with fine dexterity or reaching overhead. Right Eyelid Ptosis: - Right eyelid ptosis began 6-8 months ago. - Seen by a local neurologist; referral sent to the current clinic. - Reports voice hoarseness and swallowing issues. - No issues with speech or chewing fatigue. - Denies tremors. CKD: - History of CKD. - Following a low sodium diet; no other major dietary restrictions. - Denies urinary issues. Back Pain: - History of lower back surgery (L4, L5). - Denies current back pain. Neuropathy: - Reports random numbness and tingling in the left hand, occurring about once a week. - Denies numbness or tingling in the legs. - Denies muscle twitching; reports leg cramping at night. - Denies tremors. Exercise: - Participated in cardiac rehab but experienced BP drops with activity. - Uses a recumbent exercise bike at home 3 times a week for 30 minutes. 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 Neuromuscular: Difficulty with gait: no Falls: yes Difficulty with stairs: yes Difficulty getting out of seated position: sometimes if its too low Difficulty with manual dexterity (buttons, zippers, cutting food): no Difficulty reaching overhead (opening cabinets, washing hair, brushing teeth): no Ocular weakness (ptosis, diplopia): yes - ptosis right eye Bulbar weakness (fatigue with chewing, dysphagia, dysarthria): swallowing issues, voice goes away and more raspy now. Voice goes away at any point in time of the day. Like he runs out of air trying to talk Dyspnea on exertion and/or orthopnea: with walking at times Numbness/tingling: in left arm once per week. random Pain: no - history of back surgery lower back - L4-L5 Muscle twitching/cramping: legs cramp at night - wrapping the legs at night help the craming Orthostatic lightheadedness: yes GI dysmotility: occasionally Urinary symptoms: no Sleep disorders: no Tremor: no Current management of orthostatic condition Diet: low sodium diet Exercise: tried cardiac rehab Water: half gallon Salt: low salt Stockings: no Current Medications for orthostatic condition Sotalol Midodrine - this has not helped with the dizzy spells at all Prior Medications for orthostatic condition Pyridostigmine Relevant Work Up To Date Skin Biopsy 03/06/2023 IMPRESSION: There is a reduction of the epidermal nerve fiber density at the distal thigh. This finding would be consistent with a focal sm (more content not included)... [facility] 10-29-2024 History of Presen t illness Narrative Subjective Patient ID: Yoli Antunez is a 69 y.o. male who presents for Post-op (2 week evon ) HPI Post right endoscopic septoplasty and right functional endoscopic sinus surgery. States to be doing well. Review of Systems Patient denies any pain or fever. No longer having any facial discomfort or sinus drainage. No longer taking antibiotics. Allergies as of 10/29/2024 - Reviewed 10/29/2024 Allergen Reaction Noted Vancomycin Anaphylaxis, Itching, and Rash 03/07/2022 Dofetilide Dizziness and Unknown 08/24/2021 Penicillins Unknown and Other 09/12/2000 Past Medical History: Diagnosis Date A-fib (HCC) 11/2020 [facility] Abdominal aortic aneurysm without rupture Acquired absence of other specified parts of digestive tract 09/22/2024 Aortic root dilatation Biliary acute pancreatitis without necrosis or infection ([facility]-HCC) Brain lesion SMALL BRAIN LESION C/W MS Cataract COVID-19 GI bleed History of being hospitalized 12/2021 abd pain, lap ivy History of partial knee replacement left HL (hearing loss) Hypertension Hyperthyroidism Hypothyroid Kidney stone with mild hydonephrosis Migraine Noninfective gastroenteritis and colitis, unspecified 09/22/2024 Numbness Orthostatic hypotension Paroxysmal atrial fibrillation (HCC) Peripheral neuropathy Personal history of medical treatment BORDERLINE MS, MG, ALS Sleep apnea TIA (transient ischemic attack) Vitamin D deficiency Vitreous hemorrhage (CMS-HCC) 08/2017 Macular Pucker Current Outpatient Medications: calcitriol (Rocaltrol) 0.25 MCG capsule, Take 1 capsule (0.25 mcg) by mouth Daily, Disp: 90 capsule, Rfl: 1 calcium carbonate (Os-Atilio) 1250 (500 Ca) MG chewable tablet, Chew 1 tablet in the morning., Disp: , Rfl: ergocalciferol (Vitamin D-2) 1.25 MG (10398 UT) capsule, Take 1 capsule (1.25 mg) by mouth 1 (one) time per week, Disp: 12 capsule, Rfl: 1 levothyroxine (Synthroid) 150 MCG tablet, Take 1 tablet (150 mcg) by mouth 4 (four) times a week Take on an empty stomach, Disp: 48 tablet, Rfl: 0 levothyroxine (Synthroid) 175 MCG tablet, Take 1 tablet (175 mcg) by mouth 3 (three) times a week Take on an empty stomach, Disp: 36 tablet, Rfl: 0 magnesium citrate solution, Take 296 mL by mouth Daily, Disp: , Rfl: midodrine (Proamatine) 5 MG tablet, Take 5 mg by mouth in the morning and 5 mg in the evening and 5 mg before bedtime., Disp: , Rfl: nitroglycerin (Nitrostat) 0.4 MG SL tablet, DISSOLVE ONE TABLET UNDER THE TONGUE EVERY 5 MINUTES NEEDED FOR CHEST PAIN., Disp: 75 tablet, Rfl: 0 pramipexole (Mirapex) 1 MG tablet, Take 1 tablet (1 mg) by mouth at bedtime, Disp: 90 tablet, Rfl: 3 sotalol (Betapace) 120 MG tablet, , Disp: , Rfl: Past Surgical History: Procedure Laterality Date ABLATION A-FIB 11/2020 [facility] ANTERIOR CERVICAL DISCECTOMY W/ FUSION APPENDECTOMY CARDIAC SURGERY 09/2020 [facility] CATARACT EXTRACTION Right 02/2022 CHOLECYSTECTOMY 01/02/2022 [...] REPAIR LAMINECTOMY L4-5 LOOP RECORDER IMPLANT 12/2021 LUMBAR LAMINECTOMY MR ANGIOGRAM HEAD WO IV CONTRAST 07/09/2022 MR ANGIOGRAM HEAD WO IV CONTRAST 07/09/2022 MR ANGIOGRAM NECK WO IV CONTRAST 07/09/2022 MR ANGIOGRAM NECK WO IV CONTRAST 07/09/2022 OTHER SURGICAL HISTORY MULTIPLE BIOPSIES AND EMGs OTHER SURGICAL HISTORY cortisteroid lumbar injections OTHER SURGICAL HISTORY C3,4,and 5 have plates OTHER SURGICAL HISTORY cardiac ablasion (, , ) OTHER SURGICAL HISTORY 06/2020 stomach ucler OTHER SURGICAL HISTORY 03/07/2022 [facility] Lt atrial appendage closure device AL THYROIDECTOMY SUBSTERNAL CERVICAL APPROACH 09/24/2018 RETINAL DETACHMENT SURGERY Left reattach SEPTOPLASTY 10/07/2024 SINUS SURGERY Right 10/07/2024 THROAT SURGERY 09/13/2022 throat dilation at THYROID SURGERY TOTAL KNEE ARTHROPLASTY Left 05/08/2016 partial TRANSESOPHAGEAL ECHOCARDIOGRAM (CHANTELLE) 04/25/2022 at [facility] URETERAL STENT PLACEMENT Left 01/2019 Social History Socioeconomic History Marital status: Spouse name: Not on file Number of children: Not on file Years of education: Not on file Highest education level: Not on file Occupational History Not on file Tobacco Use Smoking status: Former Current packs/day: 0.00 Average packs/day: 1.5 packs/day for 14.0 years (21.0 ttl pk-yrs) Types: Cigarettes, Pipe, Cigars Start date: 04/22/1969 Quit date: 1983 Years since quittin.5 Smokeless tobacco: Never Tobacco comments: Last smoked:>20 years ago Vaping Use Vaping status: Never Used Substance and Sexual Activity Alcohol use: Yes Comment: Caffeine intake: 1 cups per day of coffee Drug use: Never Sexual activity: Not on file Other Topics Concern Not on file Social History Narrative Not on file Social Drivers of Health Financial Resource Strain: Low Risk (04/08/2024) Received from [facility] Overall Financial Resource Strain (CARDIA) Difficulty of Paying Living Expenses: Not hard at all Food Insecurity: No Food Insecurity (04/08/2024) Received from [facility] Hunger Vital Sign Within the past 12 months, you worried that your food would run out before you got the money to buy more.: Never true Ran Out of Food in the Last Year: Not on file Transportation Needs: No Transportation Needs (04/08/2024) Received from [facility] Transportation In the past 12 months, has lack of transportation kept you from medical appointments or from getting medications?: No Lack of Transportation (Non-Medical): Not on file Physical Activity: Sufficiently Active (12/17/2023) Exercise Vital Sign Days of Exercise per Week: 7 days Minutes of Exercise per Session: 30 min Stress: Patient Declined (12/17/2023) [employer] - Occupational Stress Questionnaire Feeling of Stress : Patient declined Social Connections: Moderately Isolated (12/17/2023) Social Connection and Isolation Panel [NHANES] Frequency of Communication with Friends and Family: More than three times a week Frequency of Social Gatherings with Friends and Family: More than three times a week Attends Shinto Services: Never Active Member of Clubs or Organizations: No Attends Club or Organization Meetings: Never Marital Status: Intimate Partner Violence: Unknown (04/08/2024) Received from [facility] Humiliation, Afraid, Rape, and Kick questionnaire Fear of Current or Ex-Partner: No Emotionally Abused: Not on file Physically Abused: Not on file Sexually Abused: Not on file Housing Stability: Low Risk (04/08/2024) Received from [facility] Housing Stability Vital Sign In the last 12 months, was there a time when you were not able to pay the mortgage or rent on time?: No Number of Times Moved in the Last Year: Not on file At any time in the past 12 months, were you homeless or living in a halfway (including now)?: No Objective ENT Physical Exam General Examination: General overview: Normal, age-appropriate, no evidence of distress Head: Normocephalic, atraumatic Eyes: Pupils are equally round and reactive to light and accommodation, extraocular muscles are intact Ears: External ear architecture within normal limits, ear canals are patent, tympanic membranes are intact. Nose: External nose unremarkable, nares patent, septum intact, no evidence of congestion. As part of a scheduled procedure after sinus surgery, the patient is locally anesthetized. Debridement/biopsy of sinus Method: After spraying the patient's nose with anesthetic/decongestant, the endoscope was utilized to visualize the operated cavity. Small amounts of granulation tissue, clot, and sequestra were gradually removed from the cavity. Debridement was carried out until all easily removed material was removed. The maxillary sinuses wide open with no evidence of drainage. Mild inflammation of the mucosa. Nasal septum is much better and continues to heal quite nicely. Oral cavity: Mucosa moist, no evidence of ulcer, mass, or lesion Throat: Clear Neck/thyroid: Neck supple, full range of motion, no cervical lymphadenopathy, no evidence of thyromegaly Lymph nodes: No cervical lymphadenopathy Skin: Warm and dry, no evidence of suspicious lesions, no rash Heart: No jugular venous distention, point of maximal impulse normal Lungs: Good air movement, no audible wheezing, no shortness of breath Chest: Normal shape and expansion Abdomen: Normal, soft, nontender, nondistended Musculoskeletal: Cervical spine normal, full range of motion Extremities: No clubbing, cyanosis, or edema Peripheral pulses: 2+ radial, 2+ carotid Neurologic: Alert and oriented, cranial nerves 2-12 are grossly intact Psych: Alert and oriented, normal affect, no evidence of distress Assessment/Plan Diagnoses and all orders for this visit: Nasal septal deviation Comments: This patient continues to heal quite nicely. Continue saline nasal spray. Chronic maxillary sinusitis Comments: No evidence of residual or persistent disease, follow up as needed OAF (sonny-antral fistula) Comments: no evidence of residual inflammation in the area of fistula repair. documented in this encounter [facility] 10-15-2024 History of Presen t illness Narrative Subjective Patient ID: Yoli Antunez is a 69 y.o. male who presents for Post-op HPI This patient presents postop right maxillary antrostomy and endoscopic septoplasty. Does describe gradual improvement of symptoms. Has recently finished his course of antibiotic. Review of Systems This patient denies any difficulties with mid facial pressure aching. Does describe his nasal drainage to be clear to white. Does describe improvement of nasal function. The rest of his review of systems is unchanged. Objective ENT Physical Exam General Examination: General overview: Normal, age-appropriate, no evidence of distress Head: Normocephalic, atraumatic Eyes: Pupils are equally round and reactive to light and accommodation, extraocular muscles are intact Ears: External ear architecture within normal limits, ear canals are patent, tympanic membranes are intact. Nose: External nose unremarkable, nares patent, septum intact, Mild congestion. Debridement/biopsy of sinus Method: After spraying the patient's nose with anesthetic/decongestant, the endoscope was utilized to visualize the operated cavity. Small amounts of granulation tissue, clot, and sequestra were gradually removed from the cavity. Debridement was carried out until all easily removed material was removed. Oral cavity: Mucosa moist, no evidence of ulcer, mass, or lesion Throat: Clear Neck/thyroid: Neck supple, full range of motion, no cervical lymphadenopathy, no evidence of thyromegaly Lymph nodes: No cervical lymphadenopathy Skin: Warm and dry, no evidence of suspicious lesions, no rash Heart: No jugular venous distention, point of maximal impulse normal Lungs: Good air movement, no audible wheezing, no shortness of breath Chest: Normal shape and expansion Abdomen: Normal, soft, nontender, nondistended Musculoskeletal: Cervical spine normal, full range of motion Extremities: No clubbing, cyanosis, or edema Peripheral pulses: 2+ radial, 2+ carotid Neurologic: Alert and oriented, cranial nerves 2-12 are grossly intact Psych: Alert and oriented, normal affect, no evidence of distress Assessment/Plan Diagnoses and all orders for this visit: Nasal septal deviation Comments: postop endoscopic septoplasty Chronic maxillary sinusitis Comments: patient will start using nasal irrigation. We will see him back in 2 or 3 weeks. documented in this encounter [facility] 10-07-2024 Hospital Discharg e instructions Patient Education 10/07/2024 16:09:17 Post Op Patient Instructions - FT (CUSTOM) 10/07/2024 14:50:45 [place] Information 2 (Custom) [place], [place] Lalito Burris DO FUNCTIONAL ENDOSCOPIC SINUS SURGERY INFORMATION SHEET WHY DO I NEED FUNCTIONAL ENDOSCOPIC SINUS SURGERY? Your doctor has recommended functional endoscopic sinus surgery because maximum medical therapy (prison antibiotics, mucus thinners and nasal sprays) has failed to eradicate your chronic sinusitis. Review of your sinus CT scan as well as endoscopic examinations of the interior of your nose shows persistent sinus disease and/or anatomical abnormalities that prevent the sinuses from draining. HOW IS FUNCTIONAL ENDOSCOPIC SINUS SURGERY PERFORMED? If your nasal septum is deviated, it will need to be straightened in order to allow the passage of surgical instruments and to give you a good nasal airway. Then, using a highly magnified and brightly lighted telescope, the areas within your nose where the sinuses drain will be surgically opened in order to facilitate normal mucus and secretion flow. At the same time, small pieces of diseased sinus tissue will be removed to allow new, un-diseased tissue to grow back in its place. The middle turbinates (structures on either side wall of the nose) may be partially removed if they are so large that they obstruct the area where the sinuses drain. WHAT RISKS ARE INVOLVED IN FUNCTIONAL ENDOSCOPIC SINUS SURGERY? Risks associated with Functional Endoscopic Sinus Surgery are bleeding and infection as in any surgical procedure. The sinuses are located in the skull and are in close proximity to both the eye and the floor of the brain. Your doctor has spent many hours in specialty training to be able to perform this delicate surgical procedure safely. Although extremely rare, there is a remote chance that damage to the eye or eye socket and/or brain could occur. Visual changes, blindness, spinal fluid leakage, meningitis and even have been reported as catastrophic complications to Functional Endoscopic Sinus Surgery. It is important that you read and understand the following list of potential complications for Functional Endoscopic Sinus Surgery. 1.BLEEDING Bleeding is a potential risk in all forms of sinus surgery. Although bleeding is usually minimal, on rare occasions it may be significant enough to require termination of the surgery and placement of nasal packing. This in turn would require hospitalization. 2.FAILURE TO CURE THE PROBLEM OR RECURRENT DISEASE As in all sinus surgery, it is possible that the sinus disease may not be cured by the operation or that recurrent disease may occur at any time. This is particularly true for those with severe nasal polyps. In this case, subsequent medical or surgical therapy may be required. 3.SPINAL FLUID LEAK Surgery on the ethmoid and sphenoid sinuses carries a rare chance in creating a leak of spinal fluid. Should this rare complication occur, it creates a pathway for infection (meningitis). If a spinal fluid leak were to occur, it would be immediately repaired with a piece of tissue from behind your ear. IV antibiotics would be started and you would be admitted to the hospital for 3-7 days of bed rest, antibiotics, and close observation. Mee Quezada 2 FUNCTIONAL ENDOSCOPIC SINUS SURGERY INFORMATION SHEET 4.LOSS OF VISION Visual loss and even total blindness have been reported after sinus surgery. Fortunately, such complications are extremely rare. Temporary or prolonged double vision has also been reported after sinus surgery. All forms of visual disturbance, although remote and very unlikely, need to be understood. WHAT CAN I EXPECT AFTER SURGERY? During the immediate post-operative period, you will recover in the Post Anesthesia Recovery Unit. Here, your vital signs will be taken frequently, and you will be closely monitored until you have completely awoken from anesthesia/sedation. A drip pad will be taped under your nose to absorb any drainage that may come from it. There may be a small amount of packing in each nostril. This will make it difficult to breathe through your nose. In most cases, the packing is removed before you are discharged from the hospital. You will be instructed how to use your pain medication, antibiotic, and anti-swelling medication if it is prescribed. Additionally, you will be sent home with two nasal sprays. One spray is nothing more than a weak salt-water solution, which is used as much as needed to rinse the nasal passages. The other is a medication which helps unstuff your nose and keeps the post-operative bloody oozing to a minimum. The first few days following surgery, it is moran to maintain a low level of activity. You may take short walks and even drive short distances, however you will fatigue easily. You should not drive or attempt important tasks while taking the pain medication. You may eat whatever you like, though generally speaking, a soft diet is best tolerated. Below is a list of specific instructions to be followed after FESS. 1.DO NOT BLOW YOUR NOSE. Sniff back only. If you have to sneeze or cough, do so with your mouth open. 2.Do not attain any head-down positions. 3.Do not lift or strain. 4.Wear a nasal drip pad for the first 2-3 days following surgery. Once the drainage slows down, you may wear the pad only when necessary. 5.If your nose begins to bleed, do not become alarmed. Sit down, put your feet up, and apply a nasal drip pad as well as ice to the back of your neck. If the bleeding does not stop in 5-10 minutes or it is very brisk, either call the office or report to the nearest Emergency Room where your doctor will be notified. 6.Keep your post-operative appointment. If you do not have one, call the office for an appointment to be seen 7-10 days after your surgery. 7.Use your salt-water nasal spray liberally. It will keep hard crusts from forming in the operative sinus cavities. 8.Call the office with any questions or problems. I have read the above risks and understand them. SignatureDate Reviewed: 05/30 Follow Up Care 09/22/2024 15:48:54 With:Lalito Burris Address: [address] [phone] Business (1) When: Unknown [facility] 10-07-2024 Note Progress Note-Physic shan Patient: YOLI ANTUNEZ JR Age: 69 years Sex: Male : 1955 Associated Diagnoses: None Author: Amos Mena Jr., DO Postoperative Information Postoperative disposition: Postoperative disposition: Home. Optimetrix number: Optimetrix number [id number]. Anesthetic utilized: General. Physical Examination Vital Signs 10/07/2024 16:39 EDT Heart Rate Monitored 75 bpm Systolic Blood Pressure 126 mmHg Diastolic Blood Pressure 77 mmHg Mean Arterial Pressure, Cuff 94 mmHg 10/07/2024 16:39 EDT Heart Rate Monitored 75 bpm SpO2 94 % 10/07/2024 16:04 EDT Systolic Blood Pressure 122 mmHg Diastolic Blood Pressure 72 mmHg Mean Arterial Pressure, Cuff 89 mmHg 10/07/2024 15:56 EDT Heart Rate Monitored 74 bpm SpO2 93 % 10/07/2024 15:53 EDT Systolic Blood Pressure 123 mmHg Diastolic Blood Pressure 73 mmHg Mean Arterial Pressure, Cuff 90 mmHg 10/07/2024 15:50 EDT Heart Rate Monitored 77 bpm SpO2 95 % 10/07/2024 15:50 EDT Systolic Blood Pressure 118 mmHg Diastolic Blood Pressure 78 mmHg Mean Arterial Pressure, Cuff 91 mmHg 10/07/2024 15:49 EDT Heart Rate Monitored 74 bpm SpO2 95 % 10/07/2024 15:46 EDT Systolic Blood Pressure 130 mmHg Diastolic Blood Pressure 80 mmHg Mean Arterial Pressure, Cuff 97 mmHg 10/07/2024 15:42 EDT Heart Rate Monitored 90 bpm SpO2 96 % 10/07/2024 15:38 EDT Systolic Blood Pressure 142 mmHg HI Diastolic Blood Pressure 91 mmHg HI Mean Arterial Pressure, Cuff 108 mmHg 10/07/2024 15:28 EDT Heart Rate Monitored 72 bpm SpO2 98 % 10/07/2024 15:26 EDT Systolic Blood Pressure 138 mmHg Diastolic Blood Pressure 87 mmHg Mean Arterial Pressure, Cuff 104 mmHg 10/07/2024 15:15 EDT Respiratory Rate Monitored 12 br/min SpO2 96 % 10/07/2024 15:15 EDT Heart Rate Monitored 81 bpm 10/07/2024 15:15 EDT Temperature Temporal Artery 36.8 DegC Systolic Blood Pressure 157 mmHg HI Diastolic Blood Pressure 91 mmHg HI Blood Pressure Location Left arm Mean Arterial Pressure, Cuff 113 mmHg 10/07/2024 15:05 EDT SpO2 99 % 10/07/2024 15:05 EDT Heart Rate Monitored 82 bpm Respiratory Rate Monitored 13 br/min 10/07/2024 15:05 EDT Systolic Blood Pressure 157 mmHg HI Diastolic Blood Pressure 97 mmHg HI Blood Pressure Location Left arm Mean Arterial Pressure, Cuff 117 mmHg 10/07/2024 15:00 EDT SpO2 97 % 10/07/2024 15:00 EDT Heart Rate Monitored 81 bpm Respiratory Rate Monitored 20 br/min 10/07/2024 15:00 EDT Systolic Blood Pressure 176 mmHg HI Diastolic Blood Pressure 75 mmHg 10/07/2024 15:00 EDT Blood Pressure Location Left arm Mean Arterial Pressure, Cuff 109 mmHg 10/07/2024 14:55 EDT Heart Rate Monitored 80 bpm Respiratory Rate Monitored 16 br/min 10/07/2024 14:55 EDT SpO2 97 % 10/07/2024 14:55 EDT Systolic Blood Pressure 151 mmHg HI Diastolic Blood Pressure 94 mmHg HI Blood Pressure Location Left arm Mean Arterial Pressure, Cuff 113 mmHg FIO2 35 10/07/2024 14:50 EDT Heart Rate Monitored 80 bpm 10/07/2024 14:50 EDT SpO2 97 % 10/07/2024 14:50 EDT Respiratory Rate Monitored 20 br/min 10/07/2024 14:50 EDT Systolic Blood Pressure 155 mmHg HI Diastolic Blood Pressure 99 mmHg HI 10/07/2024 14:50 EDT Blood Pressure Location Left arm Mean Arterial Pressure, Cuff 118 mmHg FIO2 35 10/07/2024 14:44 EDT Heart Rate Monitored 86 bpm 10/07/2024 14:44 EDT Respiratory Rate Monitored 21 br/min 10/07/2024 14:44 EDT Systolic Blood Pressure 153 mmHg HI Diastolic Blood Pressure 91 mmHg HI 10/07/2024 14:44 EDT SpO2 98 % 10/07/2024 14:44 EDT Blood Pressure Location Left arm Mean Arterial Pressure, Cuff 112 mmHg FIO2 35 10/07/2024 14:40 EDT Respiratory Rate Monitored 12 br/min 10/07/2024 14:40 EDT SpO2 97 % 10/07/2024 14:40 EDT Heart Rate Monitored 80 bpm 10/07/2024 14:40 EDT Systolic Blood Pressure 161 mmHg HI Diastolic Blood Pressure 99 mmHg AL 10/07/2024 14:40 EDT Temperature Temporal Artery 36.4 DegC Blood Pressure Location Left arm Mean Arterial Pressure, Cuff 120 mmHg Pain Assessment: Pain Assessment 10/07/2024 15:15 EDT Primary Pain Location Chest Primary Pain Quality Pressure Verbal Descriptor Pain Scale Mild pain 10/07/2024 15:05 EDT Primary Pain Location Chest Primary Pain Quality Pressure Verbal Descriptor Pain Scale Slight pain 10/07/2024 11:28 EDT Preliminary Pain Scale 0 . General: Awake, Alert, Appropriate. Respiratory: Adequate air exchange, Non-labored. Cardiovascular: Stable, Normal peripheral perfusion. Neurological: Neurologic exam at baseline. No changes.. Assessment Anesthetic outcome No anesthetic complications noted. No nausea/vomiting. Patient initially conversant in PACU; however, Aphasic (unable to get words out) in ASU, similar to other post-anesthesia encounters per patient. These episodes typically last a few hours per patient. Also patient had complaint of substernal chest pain which he treats with NTG, but cardiology attributes to non-cardiac etiology. Permitted patient to (more content not included)... [facility] Comment on above: Result Comment: Elec tronically Signed By: Amos Mena Jr., DO\.dionne\Date and Time Signed: 10/07/24 17:02 EDT 10-07-2024 Note Patient Education - Text [place], [place] Lalito Burris DO FUNCTIONAL ENDOSCOPIC SINUS SURGERY INFORMATION SHEET WHY DO I NEED FUNCTIONAL ENDOSCOPIC SINUS SURGERY? 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 Review of your sinus CT scan as well as endoscopic examinations of the interior of your nose shows persistent sinus disease and/or anatomical abnormalities that prevent the sinuses from draining. HOW IS FUNCTIONAL ENDOSCOPIC SINUS SURGERY PERFORMED? If your nasal septum is deviated, it will need to be straightened in order to allow the passage of surgical instruments and to give you a good nasal airway. Then, using a highly magnified and brightly lighted telescope, the areas within your nose where the sinuses drain will be surgically opened in order to facilitate normal mucus and secretion flow. At the same time, small pieces of diseased sinus tissue will be removed to allow new, un-diseased tissue to grow back in its place. The middle turbinates (structures on either side wall of the nose) may be partially removed if they are so large that they obstruct the area where the sinuses drain. WHAT RISKS ARE INVOLVED IN FUNCTIONAL ENDOSCOPIC SINUS SURGERY? Risks associated with Functional Endoscopic Sinus Surgery are bleeding and infection as in any surgical procedure. The sinuses are located in the skull and are in close proximity to both the eye and the floor of the brain. Your doctor has spent many hours in specialty training to be able to perform this delicate surgical procedure safely. Although extremely rare, there is a remote chance that damage to the eye or eye socket and/or brain could occur. Visual changes, blindness, spinal fluid leakage, meningitis and even have been reported as catastrophic complications to Functional Endoscopic Sinus Surgery. It is important that you read and understand the following list of potential complications for Functional Endoscopic Sinus Surgery. 1. BLEEDING Bleeding is a potential risk in all forms of sinus surgery. Although bleeding is usually minimal, on rare occasions it may be significant enough to require termination of the surgery and placement of nasal packing. This in turn would require hospitalization. 2. FAILURE TO CURE THE PROBLEM OR RECURRENT DISEASE As in all sinus surgery, it is possible that the sinus disease may not be cured by the operation or that recurrent disease may occur at any time. This is particularly true for those with severe nasal polyps. In this case, subsequent medical or surgical therapy may be required. 3. SPINAL FLUID LEAK Surgery on the ethmoid and sphenoid sinuses carries a rare chance in creating a leak of spinal fluid. Should this rare complication occur, it creates a pathway for infection (meningitis). If a spinal fluid leak were to occur, it would be immediately repaired with a piece of tissue from behind your ear. IV antibiotics would be started and you would be admitted to the hospital for 3-7 days of bed rest, antibiotics, and close observation. Lalito Burris, DO Page 2 FUNCTIONAL ENDOSCOPIC SINUS SURGERY INFORMATION SHEET 4. LOSS OF VISION Visual loss and even total blindness have been reported after sinus surgery. Fortunately, such complications are extremely rare. Temporary or prolonged double vision has also been reported after sinus surgery. All forms of visual disturbance, although remote and very unlikely, need to be understood. WHAT CAN I EXPECT AFTER SURGERY? During the immediate post-operative period, you will recover in the Post Anesthesia Recovery Unit. Here, your vital signs will be taken frequently, and you will be closely monitored until you have completely awoken from anesthesia/sedation. A drip pad will be taped under your nose to absorb any drainage that may come from it. There may be a small amount of packing in each nostril. This will make it difficult to breathe through your nose. In most cases, the packing is removed before you are discharged from the hospital. You will be instructed how to use your pain medication, antibiotic, and anti-swelling medication if it is prescribed. Additionally, you will be sent home with two nasal sprays. One spray is nothing more than a weak salt-water solution, which is used as much as needed to rinse the nasal passages. The other is a medication which helps ???unstuff??? your nose and keeps the post-operative bloody oozing to a minimum. The first few days following surgery, it is moran to maintain a low level of activity. You may take short walks and even drive short distances, however you will fatigue easily. You should not drive or attempt important tasks while taking the pain medication. You may eat whatever you like, though generally speaking, a soft diet is b (more content not included)... [facility] 10-07-2024 Evaluation + Plan note Extrac seema from: Title:JERAD Post-operative Note - General Author: Amos Mena Jr., DO Date:10/07/24 Plan Transfer/Discharge: Transfer/Discharge Discharge when meets criteria ( From PACU to Ambulatory Surgery Unit, and To home ). Extracted from: Title:JERAD Pre-operative Note - Adult Author:Amos Akins Jr., DO Date:10/07/24 Plan [place] [employer] (ASA) physical status classification: Class III. Anesthetic Preoperative Plan: Anesthesia General. [facility] [id number] NoteProgress Note-Physician Patient: YOLI ANTUNEZ JR Age: 69 years Sex: Male : 1955 Associated Diagnoses: None Author: Amos Mena Jr., DO Preoperative Information Anesthesia Preop Info NPO since midnight Anesthesia history: Patient history: No prior anesthetic problems. Informed consent: Signed by patient. Re-evaluation prior to induction: Initial evaluation reviewed: No significant change. Health Status Allergies: Allergic Reactions (Selected) Severity Not Documented Penicillin- Unknown. Tikosyn- Disorientation. Vancomycin- Hives., Allergies (3) Active Severity Reaction penicillin Unknown vancomycin Hives Tikosyn Disorientation Current medications: (Selected) Inpatient Medications Ordered HYDROmorphone 1 mg/mL injectable solution: 0.4 mg = 0.4 mL, Injection, IV Push, q4min PRN Pain for 5 dose(s), Stop date Limited # of times, Routine, Start date 10/07/24 11:31:00 EDT, 10/07/24 11:31:00 EDT Lactated Ringers IV Casi 1000 mL 1,000 mL: 1,000 mL, IV, 150 mL/hr, Routine, Start date 10/07/24 10:00:00 EDT, 6.7 hour(s), Total volume (mL): 1,000, 115 kg, 2.51, m2 Documented Medications Documented MetroNIDAZOLE 500 mg Tab: 500 mg = 1 tab(s), Refills(s) 0 calcitriol 0.25 mcg Cap: 0.5 mcg = 2 cap(s), Oral, qPM, Refills(s) 0 doxycycline hyclate 100 mg Cap: 100 mg = 1 cap(s), Oral, BID, Refills(s) 0 levothyroxine 150 mcg (0.15 mg) Tab: 150 mcg = 1 tab(s), Oral, Every other day, Refills(s) 0 levothyroxine 175 mcg (0.175 mg) Tab: 175 mcg = 1 tab(s), Oral, Every other day, Refills(s) 0 magnesium oxide: 250 mg, Oral, Daily, Refills(s) 0 midodrine 5 mg Tab: 5 mg = 1 tab(s), Oral, Daily, Refills(s) 0 nitroglycerin 0.4 mg sublingual Tab: 0.4 mg = 1 tab(s), Oral, q5min, PRN Chest pain, Refills(s) 0 pramipexole 1 mg Tab: 2 mg = 2 tab(s), Oral, qPM, # 90 tab(s), Refills(s) 0 sotalol 120 mg Tab: 120 mg = 1 tab(s), Oral, BID, Refills(s) 0, Home Medications (10) Active calcitriol 0.25 mcg Cap 0.5 mcg = 2 cap(s), Oral, qPM doxycycline hyclate 100 mg Cap 100 mg = 1 cap(s), Oral, BID levothyroxine 150 mcg (0.15 mg) Tab 150 mcg = 1 tab(s), Oral, Every other day levothyroxine 175 mcg (0.175 mg) Tab 175 mcg = 1 tab(s), Oral, Every other day magnesium oxide 250 mg, Oral, Daily MetroNIDAZOLE 500 mg Tab 500 mg = 1 tab(s) midodrine 5 mg Tab 5 mg = 1 tab(s), Oral, Daily nitroglycerin 0.4 mg sublingual Tab 0.4 mg = 1 tab(s), PRN, Oral, q5min pramipexole 1 mg Tab 2 mg = 2 tab(s), Oral, qPM sotalol 120 mg Tab 120 mg = 1 tab(s), Oral, BID , Medications (2) Active Scheduled: (0) Continuous: (1) Lactated Ringers 1,000 mL 1,000 mL, IV, 150 mL/hr PRN: (1) HYDROmorphone 1 mg/mL SOLN [F] 0.4 mg 0.4 mL, IV Push, q4min Problem list: All Problems BPH with urinary obstruction / SNOMED CT 7425681382 / Confirmed Gout / SNOMED CT 130179344 / Confirmed Head injury / SNOMED CT 952848910 / Confirmed Headache / SNOMED CT 62789665 / Confirmed History of TIAs / SNOMED CT 7082077281 / Confirmed Hydronephrosis with obstructing calculus / SNOMED CT 87774531 / Confirmed Hypertension / SNOMED CT 8852801792 / Confirmed Hyperthyroidism / SNOMED CT 80702576 / Confirmed Kidney stone / SNOMED CT 061356524 / Confirmed Low back pain / SNOMED CT 894708609 / Confirmed Nocturia / SNOMED CT 710321507 / Confirmed Post-void dribbling / SNOMED CT 040318530 / Confirmed Stage 3 chronic kidney disease / SNOMED CT 4699962291 / Confirmed Resolved: Atrial fibrillation / SNOMED CT 12163873 Resolved: High blood pressure / SNOMED CT 41329076 Resolved: Kidney disease / SNOMED CT 778689744 Histories Past Medical History: Resolved Atrial fibrillation (45099035): Resolved. Kidney disease (433686504): Resolved. High blood pressure (76219837): Resolved. Procedure history: Colonoscopy (544960839). Tonsillectomy (600520352). Knee replacement (318464656). Comments: 01/29/2019 16:14 EDT - Carmen KOLBUmu Shayna Right/Left Back (930781057). Thyroidectomy (00976287). Knee replacement (232390950). Appendectomy (419251863). Fusion of joint of cervical spine with internal fixation by anterior approach (9183124526). Cardiac Ablation x3 (042976178). Cholecystectomy (76373634). Implantation of cardiac pacemaker (994617803). Detached retina of left eye (9876504438). CEIOL - cataract extraction and implantation of intraocular lens (6750127584). Watchman Implant (26665475). Comments: 09/25/2024 14:40 EDT - Damian GONZALEZ, Polly Tolbert 2022 Social History Social & Psychosocial Habits Alcohol 01/19/2020 Use: Current Comment: denies - 01/19/2020 15:22 - Radha Perez RN 09/13/2020 Frequency: 1-2 times per month Substance Abuse 01/19/2020 Use: Current Comment: denies - 01/19/2020 15:23 - Radha Perez RN Comment: denanthony - 09/13/2020 09:04 - SHAYLEE GUEVARA CNP Tobacco 01/29/2019 Tobacco Use: Former smoker, quit more Type: Cigarettes, Cigars 0 (more content not included)...[facility] Comment: Electronically Signed By: Amos Mena Jr., DO.dionne\Date and Time Signed: 10/07/24 11:35 [id number] NoteCardiovascular Medicine [facility] SUBJECTIVE Chief Complaint Patient presents with Coronary Artery Disease Chest Pain Hypotension Atrial Fibrillation Yoli Tolbert Mykelcharlesjordi Isidro is a 69 y.o. male here for hospital follow-up. HPI PMHx: CAD s/p PCI, a.fib/flutter s/p ablation and s/p WATCHMAN, SND s/p PPM implant on 07/09/2023, orthostatic hypotension, TIA, POTS, intermittent expressive aphasia, HTN, HLD, chronic chest pain 10/01/2024 After his last visit we tried him in cardiac rehab to see if this would help his sx's. He notes he would often feel worse after cardiac rehab with near syncopal episodes. He would also experience chest pain with exercising. He notes his chest pain symptoms are worsening, occurring every other day or so. He experienced left sided chest pain after climbing a ladder in his barn, SL nitroglycerin helped his pain. Pain radiates down his left arm with accompanied dyspnea. He has seen ortho and neuro. Ortho felt his chest pain was not related to his cervical disc disease. Neuro referred him to [facility] for further evaluation of his ptosis and neuro sx's. He rides his recumbant bike 3 days a week. He drinks about 3/4 a galloon of water at day. He has intermittent palpitations where he feels like his heart may be in a.fib. 04/28/2024 He was started on Imdur after his [...] pain, unspecified type [R07.9] Hospital course: Yoli M Audritsh Jr. is a 68 y.o. male for primary hypertension, atrial fibrillation on sotalol status post watchman not on anticoagulation, sinus node dysfunction status post dual-chamber permanent pacemaker, coronary artery disease status post cardiac catheterization 08/2023, POTS who presented to [facility] ED with ongoing chest pain that has [...] (CMS/HCC) Essential hypertension Coronary artery disease involving [place] coronary artery of [place] heart without angina pectoris Recurrent falls History [...] ventricular hypertrophy Lactic acid acidosis Jaundice Hypoparathyroidism Hypomagnesemia Hypocalcemia Hyperlipidemia Hyperglycemia Hydronephrosis Hoarseness History of peptic ulcer History of kidney stones Gout Esophageal dysmotility Expressive aphasia Abnormal swallowing Diverticulosis of small in (more content not included)...[facility]06-12-2025 NotePatient is here today for a follow up appointment with ECHO. Patient states he gets chest pains goes down left arm at time, and is relieved with nitroglycerin, with occurs every other day, and while exerting symptoms associated with SOB, dizziness, fatigue and occasional sweating. Patient states he does have leg swelling and leg pain at night. Patient states he is taking an ATB due to a tooth infection which is going to be removed in 2 weeks. Review of Systems Constitutional: Positive for malaise/fatigue. Cardiovascular: Positive for chest pain, dyspnea on exertion and leg swelling. Respiratory: Positive for shortness of breath.[facility]06-03-2025 History of Present illness Narrative* Lalito Burris, DO - 09/22/2024 3:15 PM EDT Subjective Patient ID: Yoli Antunez is a 69 y.o. male who presents for Sinusitis (2 week evon ) HPI This patient presents for recheck of right pansinusitis, nasal septal deviation, oral antral fistula. Patient does describe improvement of his symptoms. Recently finished a course of metronidazole. No further sinus pressure drainage. Presents today in recheck. Review of Systems Patient describes mild nasal congestion. No longer having mucopurulent drainage. He believes the area of his fistula repair is much improved. A course of metronidazole. Denies any fever. Denies pain.Denies shortness of breath. The rest of his review of systems is negative Allergies as of 09/22/2024 - Reviewed 09/22/2024 Allergen Reaction Noted Vancomycin Anaphylaxis, Itching, and Rash 03/07/2022 Dofetilide Dizziness and Unknown 08/24/2021 Penicillins Unknown and Other 09/12/2000 Past Medical History: Diagnosis Date A-fib (CMS/HCC) 11/2020 [facility] Abdominal aortic aneurysm without rupture ([facility]/HCC) Acquired absence of other specified parts of digestive tract 09/22/2024 Aortic root dilatation (CMS/HCC) Biliary acute pancreatitis without necrosis or infection Brain lesion SMALL BRAIN LESION C/W MS Cataract COVID-19 GI bleed History of being hospitalized 12/2021 abd pain, lap ivy History of partial knee replacement left HL (hearing loss) Hypertension (CMS/HCC) Hyperthyroidism (CMS/HCC) Hypothyroid (CMS/HCC) Kidney stone with mild hydonephrosis Migraine Noninfective gastroenteritis and colitis, unspecified 09/22/2024 Numbness Orthostatic hypotension Paroxysmal atrial fibrillation (CMS/HCC) Peripheral neuropathy Personal history of medical treatment BORDERLINE MS, MG, ALS Sleep apnea TIA (transient ischemic attack) Vitamin D deficiency Vitreous hemorrhage 08/2017 Macular Pucker Current Outpatient Medications: calcitriol (Rocaltrol) 0.25 MCG capsule, Take 1 capsule (0.25 mcg) by mouth Daily, Disp: 90 capsule, Rfl: 1 calcium carbonate (Os-Atilio) 1250 (500 Ca) MG chewable tablet, Chew 1 tablet in the morning., Disp: ,Rfl: doxycycline (Vibra-Tabs) 100 MG tablet, Take 1 tablet (100 mg) by mouth in the morning and 1 tablet(100 mg) before bedtime. Take with a full glass of water and do not lie down for at least 30 minutes after., Disp: 60 tablet, Rfl: 0 ergocalciferol (Vitamin D-2) 1.25 MG (50677 UT) capsule, Take 1 capsule (1.25 mg) by mouth 1 (one) time per week, Disp: 12 capsule, Rfl: 1 levothyroxine (Synthroid) 150 MCG tablet, Take 1 tablet (150 mcg) by mouth 4 (four) times a week Take on an empty stomach, Disp: 48 tablet, Rfl: 0 levothyroxine (Synthroid) 175 MCG tablet, Take 1 tablet (175 mcg) by mouth 3 (three) times a week Take on an empty stomach, Disp: 36 tablet, Rfl: 0 magnesium citrate solution, Take 296 mL by mouth Daily, Disp: , Rfl: midodrine (Proamatine) 5 MG tablet, Take 5 mg by mouth in the morning and 5 mg in the evening and 5mg before bedtime., Disp: , Rfl: nitroglycerin (Nitrostat) 0.4 MG SL tablet, DISSOLVE ONE TABLET UNDER THE TONGUE EVERY 5 MINUTES ASNEEDED FOR CHEST PAIN., Disp: 75 tablet, Rfl: 0 pramipexole (Mirapex) 1 MG tablet, Take 1 tablet (1 mg) by mouth at bedtime, Disp: 90 tablet, Rfl: 3 sotalol (Betapace) 120 MG tablet, , Disp: , Rfl: metroNIDAZOLE (Flagyl) 500 MG tablet, Take 1 tablet (500 mg) by mouth in the morning and 1 tablet (500 mg) in the evening and 1 tablet (500 mg) before bedtime. Do all this for 10 days., Disp: 30 tablet, Rfl: 0 Past Surgical History: Procedure Laterality Date ABLATION A-FIB 11/2020 [facility] ANTERIOR CERVICAL DISCECTOMY W/ FUSION APPENDECTOMY CARDIAC SURGERY 09/2020 [facility] CATARACT EXTRACTION Right 02/2022 CHOLECYSTECTOMY 01/02/2022 [...] REPAIR LAMINECTOMY L4-5 LOOP RECORDER IMPLANT 12/2021 LUMBAR LAMINECTOMY MR ANGIOGRAM HEAD WO IV CONTRAST 07/09/2022 MR ANGIOGRAM HEAD WO IV CONTRAST 07/09/2022 MR ANGIOGRAM NECK WO IV CONTRAST 07/09/2022 MR ANGIOGRAM NECK WO IV CONTRAST 07/09/2022 OTHER SURGICAL HISTORY MULTIPLE BIOPSIES AND EMGs OTHER SURGICAL HISTORY cortisteroid lumbar injections OTHER SURGICAL HISTORY C3,4,and 5 have plates OTHER SURGICAL HISTORY cardiac ablasion (-2019, -2019, -2020) OTHER SURGICAL HISTORY 06/2020 stomach ucler OTHER SURGICAL HISTORY 03/07/2022 Watchman FLX Lt atrial appendage closure device AL THYROIDECTOMY SUBSTERNAL CERVICAL APPROACH 09/24/2018 RETINAL DETACHMENT SURGERY Left reattach THROAT SURGERY 09/13/2022 throat dilation at THYROID SURGERY TOTAL KNEE ARTHROPLASTY Left 05/08/2016 partial TRANSESOPHAGEAL ECHOCARDIOGRAM (CHANTELLE) 04/25/2022 at IN URETERAL STENT PLACEMENT Left 01/2019 Social History Socioeconomic History Marital status: Spouse name: Not on file Number of children: Not on file Years of education: Not on file Highest education level: Not on file Occupational History Not on file Tobacco Use Smoking status: Former Current packs/day: 0.00 Average packs/day: 1.5 packs/day for 14.0 years (21.0 ttl pk-yrs) Types: Cigarettes, Pipe, Cigars Start date: 04/22/1969 Quit date: 1983 Years since quittin.4 Smokeless tobacco: Never Tobacco comments: Last smoked:>20 years ago Vaping Use Vaping status: Never Used Substance and Sexual Activity Alcohol use: Yes Comment: Caffeine intake: 1 cups per day of coffee Drug use: Never Sexual activity: Not on file Other Topics Concern Not on file Social History Narrative Not on file Social Drivers of Health Financial Resource Strain: Low Risk (04/08/2024) Received from [facility] Overall Financial Resource Strain (CARDIA) Difficulty of Paying Living Expenses: Not hard at all Food Insecurity: No Food Insecurity (04/08/2024) Received from [facility] Hunger Vital Sign Within the past 12 months, you worried that your food would run out before you got the money to buymore.: Never true Ran Out of Food in the Last Year: Not on file Transportation Needs: No Transportation Needs (04/08/2024) Received from [facility] Transportation In the past 12 months, has lack of transportation kept you from medical appointments or from getting medications?: No Lack of Transportation (Non-Medical): Not on file Physical Activity: Sufficiently Active (12/17/2023) Exercise Vital Sign Days of Exercise per Week: 7 days Minutes of Exercise per Session: 30 min Stress: Patient Declined (12/17/2023) [employer] [place] [employer] - Occupational Stress Questionnaire Feeling of Stress : Patient declined Social Connections: Moderately Isolated (12/17/2023) Social Connection and Isolation Panel [NHANES] Frequency of Communication with Friends and Family: More than three times a week Frequency of Social Gatherings with Friends and Family: More than three times a week Attends Shinto Services: Never Active Member of Clubs or Organizations: No Attends Club or Organization Meetings: Never Marital Status: Intimate Partner Violence: Unknown (04/08/2024) Received from [facility] Humiliation, Afraid, Rape, and Kick questionnaire Fear of Current or Ex-Partner: No Emotionally Abused: Not on file Physically Abused: Not on file Sexually Abused: Not on file Housing Stability: Low Risk (04/08/2024) Received from [facility] Housing Stability Vital Sign In the last 12 months, was there a time when you were not able to pay the mortgage or rent on time?: No Number of Times Moved in the Last Year: Not on file At any time in the past 12 months, were you homeless or living in a halfway (including now)?: No Objective ENT Physical Exam General Examination: General overview: Normal, age-appropriate, no evidence of distress, obvious evidence of smoking Head: Normocephalic, atraumatic Eyes: Pupils are equally round and reactive to light and accommodation, extraocular muscles are intact Ears: External ear architecture within normal limits, ear canals are patent, tympanic membranes areintact. Nose: External nose unremarkable, nares patent, septum intact, deviation of the septum to the right. No evidence of mucopurulent drainage at this time. Oral cavity: Mucosa moist, no evidence of ulcer, mass, or lesion . The area of fistula repair is much improved Throat: Clear Neck/thyroid: Neck supple, full range of motion, no cervical lymphadenopathy, no evidence of thyromegaly Lymph nodes: No cervical lymphadenopathy Skin: Warm and dry, no evidence of suspicious lesions, no rash Heart: No jugular venous distention, point of maximal impulse normal Lungs: Good air movement, no audible wheezing, no shortness of breath Chest: Normal shape and expansion Abdomen: Normal, soft, nontender, nondistended Musculoskeletal: Cervical spine normal, full range of motion Extremities: No clubbing, cyanosis, or edema Peripheral pulses: 2+ radial, 2+ carotid Neurologic: Alert and oriented, cranial nerves 2-12 are grossly intact Psych: Alert and oriented, normal affect, no evidence of distress Assessment/Plan Diagnoses and all orders for this visit: Nasal septal deviation Comments: may need to consider endoscopic septoplasty on the right to provide adequate exposure of the maxillary sinus Acute non-recurrent maxillary sinusitis Comments: improved on antibiotic, recommend endoscopic sinus surgery for removal of fragment of tooth Orders: - metroNIDAZOLE (Flagyl) 500 MG tablet; Take 1 tablet (500 mg) by mouth in the morning and 1 tablet(500 mg) in the evening and 1 tablet (500 mg) before bedtime. Do all this for 10 days. OAF (sonny-antral fistula) Comments: much improved on physical examination, infection improved Sinus surgery is recommended. All of the risks, options, aspects, indications, reasonable expectations are reviewed in detail. Risks include but are not limited to bleeding, infection, leakage of brain fluid, injury to the brain, injury to the eye, scar tissue, recurrent disease, serous disability,and . documented in this encounterBothwell Regional Health [id number] History of Present illness Narrative* Lalito Burris DO - 09/08/2024 2:30 PM EDT Subjective Patient ID: Yoli Antunez is a 69 y.o. male who presents for Sinusitis (New Patient : sinusitis / CT done) HPI 69-year-old male presents today for evaluation of chronic sinus symptoms on the right. Symptoms have been going on since dental surgery on the right. Describes right-sided facial pressure and drainage. Also describes repair of a fistula in the mouth on the right side. Currently taking doxycycline. Presents today for further evaluation and treatment Review of Systems Patient describes significant right-sided mid facial pressure and postnasal drainage. Symptoms mildly improved using doxycycline. Does describe significant difficulties with drainage and discomfort in the roof of his mouth. Denies any fever. The rest of his review of systems is negative Allergies as of 09/08/2024 - Reviewed 09/08/2024 Allergen Reaction Noted Vancomycin Anaphylaxis, Itching, and Rash 03/07/2022 Dofetilide Dizziness and Unknown 08/24/2021 Penicillins Unknown and Other 09/12/2000 Past Medical History: Diagnosis Date A-fib (CMS/HCC) 11/2020 [facility] Abdominal aortic aneurysm without rupture (CMS/HCC) Aortic root dilatation (CMS/HCC) Biliary acute pancreatitis without necrosis or infection Brain lesion SMALL BRAIN LESION C/W MS Cataract COVID-19 GI bleed History of being hospitalized 12/2021 abd pain, lap ivy History of partial knee replacement left HL (hearing loss) Hypertension (CMS/HCC) Hyperthyroidism (CMS/HCC) Hypothyroid (CMS/HCC) Kidney stone with mild hydonephrosis Migraine Numbness Orthostatic hypotension Paroxysmal atrial fibrillation (CMS/HCC) Peripheral neuropathy Personal history of medical treatment BORDERLINE MS, MG, ALS Sleep apnea TIA (transient ischemic attack) Vitamin D deficiency Vitreous hemorrhage 08/2017 Macular Pucker Current Outpatient Medications: calcitriol (Rocaltrol) 0.25 MCG capsule, Take 1 capsule (0.25 mcg) by mouth Daily, Disp: 90 capsule, Rfl: 1 calcium carbonate (Os-Atilio) 1250 (500 Ca) MG chewable tablet, Chew 1 tablet in the morning., Disp: ,Rfl: ergocalciferol (Vitamin D-2) 1.25 MG (94346 UT) capsule, Take 1 capsule (1.25 mg) by mouth 1 (one) time per week, Disp: 12 capsule, Rfl: 1 levothyroxine (Synthroid) 150 MCG tablet, Take 1 tablet (150 mcg) by mouth 4 (four) times a week Take on an empty stomach, Disp: 48 tablet, Rfl: 0 levothyroxine (Synthroid) 175 MCG tablet, Take 1 tablet (175 mcg) by mouth 3 (three) times a week Take on an empty stomach, Disp: 36 tablet, Rfl: 0 magnesium citrate solution, Take 296 mL by mouth Daily, Disp: , Rfl: midodrine (Proamatine) 5 MG tablet, Take 5 mg by mouth in the morning and 5 mg in the evening and 5mg before bedtime., Disp: , Rfl: nitroglycerin (Nitrostat) 0.4 MG SL tablet, DISSOLVE ONE TABLET UNDER THE TONGUE EVERY 5 MINUTES ASNEEDED FOR CHEST PAIN., Disp: 75 tablet, Rfl: 0 pramipexole (Mirapex) 1 MG tablet, Take 1 tablet (1 mg) by mouth at bedtime, Disp: 90 tablet, Rfl: 3 sotalol (Betapace) 120 MG tablet, , Disp: , Rfl: doxycycline (Vibra-Tabs) 100 MG tablet, Take 1 tablet (100 mg) by mouth in the morning and 1 tablet(100 mg) before bedtime. Take with a full glass of water and do not lie down for at least 30 minutes after., Disp: 60 tablet, Rfl: 0 metroNIDAZOLE (Flagyl) 500 MG tablet, Take 1 tablet (500 mg) by mouth in the morning and 1 tablet (500 mg) in the evening and 1 tablet (500 mg) before bedtime. Do all this for 10 days., Disp: 30 tablet, Rfl: 0 Past Surgical History: Procedure Laterality Date ABLATION A-FIB 11/2020 [facility] ANTERIOR CERVICAL DISCECTOMY W/ FUSION APPENDECTOMY CARDIAC SURGERY 09/2020 [facility] CATARACT EXTRACTION Right 02/2022 CHOLECYSTECTOMY 01/02/2022 [...] REPAIR LAMINECTOMY L4-5 LOOP RECORDER IMPLANT 12/2021 LUMBAR LAMINECTOMY MR ANGIOGRAM HEAD WO IV CONTRAST 07/09/2022 MR ANGIOGRAM HEAD WO IV CONTRAST 07/09/2022 MR ANGIOGRAM NECK WO IV CONTRAST 07/09/2022 MR ANGIOGRAM NECK WO IV CONTRAST 07/09/2022 OTHER SURGICAL HISTORY MULTIPLE BIOPSIES AND EMGs OTHER SURGICAL HISTORY cortisteroid lumbar injections OTHER SURGICAL HISTORY C3,4,and 5 have plates OTHER SURGICAL HISTORY cardiac ablasion (-2019, -2019, -2020) OTHER SURGICAL HISTORY 06/2020 stomach ucler OTHER SURGICAL HISTORY 03/07/2022 Watchman FLX Lt atrial appendage closure device AL THYROIDECTOMY SUBSTERNAL CERVICAL APPROACH 09/24/2018 RETINAL DETACHMENT SURGERY Left reattach THROAT SURGERY 09/13/2022 throat dilation at THYROID SURGERY TOTAL KNEE ARTHROPLASTY Left 05/08/2016 partial TRANSESOPHAGEAL ECHOCARDIOGRAM (CHANTELLE) 04/25/2022 at IN URETERAL STENT PLACEMENT Left 01/2019 Social History Socioeconomic History Marital status: Spouse name: Not on file Number of children: Not on file Years of education: Not on file Highest education level: Not on file Occupational History Not on file Tobacco Use Smoking status: Former Current packs/day: 0.00 Average packs/day: 1.5 packs/day for 14.0 years (21.0 ttl pk-yrs) Types: Cigarettes, Pipe, Cigars Start date: 04/22/1969 Quit date: 1984 Years since quittin.4 Smokeless tobacco: Never Tobacco comments: Last smoked:>20 years ago Vaping Use Vaping status: Never Used Substance and Sexual Activity Alcohol use: Yes Comment: Caffeine intake: 1 cups per day of coffee Drug use: Never Sexual activity: Not on file Other Topics Concern Not on file Social History Narrative Not on file Social Drivers of Health Financial Resource Strain: Low Risk (04/08/2024) Received from [facility] Overall Financial Resource Strain (CARDIA) Difficulty of Paying Living Expenses: Not hard at all Food Insecurity: No Food Insecurity (04/08/2024) Received from [facility] Hunger Vital Sign Within the past 12 months, you worried that your food would run out before you got the money to buymore.: Never true Ran Out of Food in the Last Year: Not on file Transportation Needs: No Transportation Needs (04/08/2024) Received from [facility] Transportation In the past 12 months, has lack of transportation kept you from medical appointments or from getting medications?: No Lack of Transportation (Non-Medical): Not on file Physical Activity: Sufficiently Active (12/17/2023) Exercise Vital Sign Days of Exercise per Week: 7 days Minutes of Exercise per Session: 30 min Stress: Patient Declined (12/17/2023) [employer] [place] [employer] - Occupational Stress Questionnaire Feeling of Stress : Patient declined Social Connections: Moderately Isolated (12/17/2023) Social Connection and Isolation Panel [NHANES] Frequency of Communication with Friends and Family: More than three times a week Frequency of Social Gatherings with Friends and Family: More than three times a week Attends Shinto Services: Never Active Member of Clubs or Organizations: No Attends Club or Organization Meetings: Never Marital Status: Intimate Partner Violence: Unknown (04/08/2024) Received from [facility] Humiliation, Afraid, Rape, and Kick questionnaire Fear of Current or Ex-Partner: No Emotionally Abused: Not on file Physically Abused: Not on file Sexually Abused: Not on file Housing Stability: Low Risk (04/08/2024) Received from [facility] Housing Stability Vital Sign In the last 12 months, was there a time when you were not able to pay the mortgage or rent on time?: No Number of Times Moved in the Last Year: Not on file At any time in the past 12 months, were you homeless or living in a halfway (including now)?: No Objective ENT Physical Exam General Examination: General overview: Normal, age-appropriate, no evidence of distress Head: Normocephalic, atraumatic Eyes: Pupils are equally round and reactive to light and accommodation, extraocular muscles are intact Ears: External ear architecture within normal limits, ear canals are patent, tympanic membranes areintact. Nose: External nose unremarkable, nares patent, septum intact, septal deviation to the right. Congestion noted, greater on the right. Nasal endoscopy: Consent: Proper consent is obtained Anesthesia: Nasal airway is anesthetized using aerosolized lidocaine and epinephrine Procedure: After decongestion, a diagnostic nasal endoscopy was performed bilaterally. The endoscope was placed into the nose and a thorough inspection of the internal nose including the septum, skull base, lateral nasal wall structures is performed. There is Severe nasal congestion on the right with mucopurulent drainage coming from the middle meatus. Scope is then removed without difficulty. Disposition: This patient tolerated this procedure extremely well. Fully instructed on postprocedure care and follow-up. Review of his CT scan reveals evidence of right-sided pansinusitis with obvious portion of tooth inthe maxillary sinus and connection between the mouth and the sinus with loss of bone in the maxilla. Obvious evidence of a portion of tooth in the maxillary sinus on the right Oral cavity: Mucosa moist, obvious evidence of prior dental extraction superior on the right with inflammatory tissue in the area of likely fistula Throat: Clear Neck/thyroid: Neck supple, full range of motion, no cervical lymphadenopathy, no evidence of thyromegaly Lymph nodes: No cervical lymphadenopathy Skin: Warm and dry, no evidence of suspicious lesions, no rash Heart: No jugular venous distention, point of maximal impulse normal Lungs: Good air movement, no audible wheezing, no shortness of breath Chest: Normal shape and expansion Abdomen: Normal, soft, nontender, nondistended Musculoskeletal: Cervical spine normal, full range of motion Extremities: No clubbing, cyanosis, or edema Peripheral pulses: 2+ radial, 2+ carotid Neurologic: Alert and oriented, cranial nerves 2-12 are grossly intact Psych: Alert and oriented, normal affect, no evidence of distress Assessment/Plan Diagnoses and all orders for this visit: Nasal septal deviation Comments: observe for worsening symptoms, consider septoplasty Acute non-recurrent maxillary sinusitis Comments: patient will continue doxycycline. We will also place him on metronidazole Orders: - Ambulatory referral to ENT - doxycycline (Vibra-Tabs) 100 MG tablet; Take 1 tablet (100 mg) by mouth in the morning and 1 tablet (100 mg) before bedtime. Take with a full glass of water and do not lie down for at least 30 minutes after. - metroNIDAZOLE (Flagyl) 500 MG tablet; Take 1 tablet (500 mg) by mouth in the morning and 1 tablet(500 mg) in the evening and 1 tablet (500 mg) before bedtime. Do all this for 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 documented in this encounterBothwell Regional Health [id number] History of Present illness Narrative* Shivani WilkersonnicholasnoéRAHUL - 09/02/2024 3:00 PM EDT Images from the original note were not included. Yoli Antunez is a 69 y.o. male presents with chief complaint of URI HPI: Shortness of Breath This is a new problem. The current episode started 1 to 4 weeks ago. The problem occurs constantly.The problem has been gradually worsening. Associated symptoms include chest pain, coryza, headaches, PND and sputum production. The symptoms are aggravated by any activity. Patient states he had a dental infection about a month ago. He came in 10 days ago and was given antibiotic, he states that did not help. He states it is going down into his chest and have a hard time breathing. Has an appt next week with ENT SUBJECTIVE: MEDICATIONS: Current Outpatient Medications Medication Instructions [...] Oral, Nightly sotalol (Betapace) 120 MG tablet I have reviewed and reconciled the history and medication list with the patient today. REVIEW OF SYMPTOMS: Review of Systems Respiratory: Positive for sputum production and shortness of breath. Cardiovascular: Positive for chest pain and PND. Neurological: Positive for headaches. OBJECTIVE: Visit Vitals Smoking Status Former Physical Exam Vitals reviewed. Constitutional: Appearance: Normal [...] Pulses: Normal pulses. Heart sounds: Normal heart sounds, S1 normal and S2 normal. Pulmonary: Effort: Pulmonary effort is normal. Breath sounds: Normal breath sounds and air entry. Musculoskeletal: Cervical back: Normal range of motion and neck supple. Lymphadenopathy: Cervical: No cervical adenopathy. Neurological: Mental Status: He is alert. ASSESSMENT AND PLAN: Assessment/Plan Diagnoses and all orders for this visit: Acute non-recurrent maxillary sinusitis - doxycycline (Vibra-Tabs) 100 MG tablet; Take 1 tablet (100 mg) by mouth in the morning and 1 tablet (100 mg) before bedtime. Do all this for 10 days. Take with a full glass of water and do not lie down for at least 30 minutes after. -cover with karlos, follow up with ENT as scheduled documented in this encounterBothwell Regional Health [id number] History of Present illness Narrative* Radha Burris MD - 08/21/2024 2:20 PM EDT Images from the original note were not included. Yoli Antunez is a 69 y.o. male presents with chief complaint of Dental Injury (Patient had tooth removed two weeks ago Saturday at [facility] for tooth removal but the root traveled to sinus. Sx of right ear pain, and thick yellow mucus that started the next day. Has been taking ibuprofen 600mg 3-4 times daily. [facility] sent a couple of referrals to ENT, one called back but can not get him in till another week. ) HPI: HPI History of Present Illness The patient presents for evaluation of a molar extraction and eye issues. Two weeks ago, a molar extraction was performed, during which a fragment of the tooth was dislodgedinto the sinuses. Despite initial expectations of a smooth recovery, persistent infection and severe pain have been experienced since the procedure. Pain is reported in the nose and the entire right side of the head, described as a stabbing sensation. Antibiotics were prescribed for the initial fewdays post-procedure, but upon exhaustion of the medication, consultation with an ENT specialist wasadvised. Several referrals have been made, but no responses have been received yet. A CT scan of the sinuses has not been performed. Pain management has been with ibuprofen, and clindamycin has been t aken previously. Currently, care is being provided by a neurologist at [facility] due to intermittent eye issues. Further evaluation at [place] has been recommended by the neurologist. Vision [...] HISTORY: Past Medical History: Diagnosis Date A-fib ([facility]/HCC) 11/2020 [facility] Abdominal aortic aneurysm without rupture ([facility]) Aortic root dilatation ([facility]) Biliary acute pancreatitis without necrosis or infection [...] History: Procedure Laterality Date ABLATION A-FIB 11/2020 [facility] APPENDECTOMY CARDIAC SURGERY 09/2020 [facility] CATARACT EXTRACTION Right 02/2022 CHOLECYSTECTOMY 01/02/2022 CT ANGIO HEAD 03/05/2023 CT ANGIO HEAD 03/05/2023 CT ANGIOGRAM ABDOMEN 07/06/2021 CT ANGIOGRAM ABDOMEN 07/06/2021 CT ANGIOGRAM ABDOMEN PELVIS 08/24/2021 CT ANGIOGRAM ABDOMEN PELVIS 08/24/2021 CT ANGIOGRAM ABDOMEN PELVIS 09/16/2021 CT ANGIOGRAM ABDOMEN PELVIS 09/16/2021 CT ANGIOGRAM CHEST 07/06/2021 CT ANGIOGRAM CHEST [facility] ANGIOGRAM HEART CORONARY 08/30/2020 [...] Watchman FLX Lt atrial appendage closure device AL THYROIDECTOMY SUBSTERNAL CERVICAL APPROACH 09/24/2018 RETINAL DETACHMENT SURGERY Left reattach THROAT SURGERY 09/13/2022 throat dilation at THYROID SURGERY TOTAL KNEE ARTHROPLASTY Left 05/08/2016 partial TRANSESOPHAGEAL ECHOCARDIOGRAM (CHANTELLE) 04/25/2022 at IN URETERAL STENT PLACEMENT Left 01/2019 REVIEW OF [...] to follow up with the specialist in [place] for further evaluation. - Referral to [place] specialist has been made for further assessment. Assessment/Plan Problem List Items Addressed This Visit None Visit Diagnoses Dental infection - Primary Relevant Medications clindamycin (Cleocin) 300 MG capsule Other Relevant Orders CT SINUS WO IV CONTRAST (Completed) No follow-ups on file. documented in this encounterBothwell Regional Health [id number] History of Present illness Narrative* Shashi Pina, DO - 08/19/2024 9:15 AM EDT Images from the original note were not included. Chief Complaint: Ptosis Subjective Yoli Antunez, 69 y.o., male The patient is seen [...] headaches. Past Medical History: Diagnosis Date A-fib ([facility]/HCC) 11/2020 [facility] Abdominal aortic aneurysm without rupture ([facility]/HCC) Aortic root dilatation ([facility]/HCC) Biliary acute pancreatitis without necrosis or infection [...] History: Procedure Laterality Date ABLATION A-FIB 11/2020 [facility] APPENDECTOMY CARDIAC SURGERY 09/2020 [facility] CATARACT EXTRACTION Right 02/2022 CHOLECYSTECTOMY 01/02/2022 [...] Watchman FLX Lt atrial appendage closure device AL THYROIDECTOMY SUBSTERNAL CERVICAL APPROACH 09/24/2018 RETINAL DETACHMENT SURGERY Left reattach THROAT SURGERY 09/13/2022 throat dilation at TOTAL KNEE ARTHROPLASTY Left 05/08/2016 partial TRANSESOPHAGEAL ECHOCARDIOGRAM (CHANTELLE) 04/25/2022 at IN URETERAL STENT PLACEMENT Left 01/2019 Family History [...] , wrist extensors , wrist flexor , sterilisation technician strength 5/5. LUE Strength deltoid , biceps , triceps , wrist extensors , wrist flexor , sterilisation technician strength 5/5. RLE Strength illopsoas, quadriceps, tibialis [...] reflex 2+ . Gonzales's sign negative. Coordination: [id number] testing and rapid alternating movements are normal [...] recommended. I have reviewed extensive notations from [facility] in January 2023 which detailed [...] patient to Dr. Bhavesh Huitron in at [facility] to evaluate further. Signs and symptoms of myasthenic crisis discussed in detail. Patient understands with any shortnessof breath or neck flexor weakness that he should present to the emergency department right away forfurther evaluation and treatment. Atrial fibrillation / orthostatic hypotension /sick sinus syndrome/pacemaker and watchman device Patient does have a history of atrial fibrillation status post ablation, history of orthostasis andlightheadedness and has seen Cardiology Clinic with concern for sick sinus syndrome with a goal foridea of pacemaker implantation with Dr. Vilchis in [place]. Certainly close follow up with Cardiology team in [facility] are of the utmost importance. Plan: Close follow up with Cardiology for management of Watchman device and pacemaker Given the patient's history of atrial fibrillation, we did have an extensive discussion today aboutstroke risk factors and signs and symptoms of [...] Focality: facial aura: Yes documented in this encounterBothwell Regional Health [id number] History of Present illness Narrative* Latoya Redding MD - 08/10/2024 9:50 AM EDT Yoli Antunez is a 69 y.o. male [...] is taking magnesium once a day the HPI 06/2024 Patient sent from [facility] had him better for low PTH 10 open 60-76) like low calcium 8.2 ( 8.6-10.3 the lowest 7.3 last year, ionized calcium in the low side 4.5 ( 4.7- 5.5, creatinine 1.2 GFR 63 hehas kidney stone before he has plaque sure [...] child Past Medical History: Diagnosis Date A-fib ([facility]/HCC) 11/2020 [facility] Abdominal aortic aneurysm without rupture ([facility]/HCC) Aortic root dilatation ([facility]) Biliary acute pancreatitis without necrosis or infection Brain lesion SMALL BRAIN LESION C/W MS Cataract COVID-19 GI bleed History of being hospitalized 12/2021 abd pain, lap ivy History of partial knee replacement left Hypothyroid ([facility]/HCC) Kidney stone with mild hydonephrosis Orthostatic hypotension Paroxysmal atrial fibrillation ([facility]/HCC) Personal history of medical treatment BORDERLINE MS, MG, ALS Vitreous hemorrhage (CMS/HCC) 08/2017 Macular Pucker Past Surgical History: Procedure Laterality Date ABLATION A-FIB 11/2020 [facility] APPENDECTOMY CARDIAC SURGERY 09/2020 [facility] CATARACT EXTRACTION Right 02/2022 CHOLECYSTECTOMY 01/02/2022 [...] Watchman FLX Lt atrial appendage closure device AL THYROIDECTOMY SUBSTERNAL CERVICAL APPROACH 09/24/2018 RETINAL DETACHMENT SURGERY Left reattach THROAT SURGERY 09/13/2022 throat dilation at TOTAL KNEE ARTHROPLASTY Left 05/08/2016 partial TRANSESOPHAGEAL ECHOCARDIOGRAM (CHANTELLE) 04/25/2022 at IN URETERAL STENT PLACEMENT Left 01/2019 REVIEW OF [...] Daily - ergocalciferol (Vitamin D-2) 1.25 MG (15789 UT) capsule; Take 1 capsule (1.25 mg) [...] 6 months (around 02/09/2025). documented in this encounterBothwell Regional Health [id number] NotePlaced in MRI mode per REP [employer] MRI mode expires 07/28/2024. 90 DOO. Patient tolerated procedure well. Post MRI scan assisted patient to dressing room. Pt has a [employer] Edora 8 DR-T pacemaker model [id number] RA lead model [id number] RV lead model [id number]- conditional for 1.5 and 3T- normal op mode- whole body 2 W/kg- info in Epic- must be in MRI mode prior to scan- sees [facility] cardiology- 06/07/21 pt has a Watchman FLX device- conditional for 1.5 and 3T- max spatial gradient 2500 G/cm- normal op mode- whole body GOOD 2 W/kg- 06/13/22 Pt has a 2 Resolution clips in stomach- conditional for 3T and 1.5- max spatial gradient 2500 G/cm- normal op mode- whole body GOOD 2 W/kg- 15 mins scanning- 07/09/22 pt states his loop recorder was removed- [facility]24[facility] History of Present illness Narrative* Latoya Redding MD - 07/06/2024 10:00 AM EDT Yoli Antunez is a 69 y.o. male Eleonora Leo,* presents with chief complaint of Thyroid Problem (PARATHYROID NEW REF/LAB) HPI: HPI 06/2024 Patient sent from [facility] had him better for low PTH 10 open 60-76) like low calcium 8.2 ( 8.6-10.3 the lowest 7.3 last year, ionized calcium in the low side 4.5 ( 4.7- 5.5, creatinine 1.2 GFR 63 hehas kidney stone before he has plaque sure [...] child Past Medical History: Diagnosis Date A-fib ([facility]) 11/2020 [facility] Abdominal aortic aneurysm without rupture ([facility]) Aortic root dilatation ([facility]) Biliary acute pancreatitis without necrosis or infection Brain lesion SMALL BRAIN LESION C/W MS Cataract COVID-19 GI bleed History of being hospitalized 12/2021 abd pain, lap ivy History of partial knee replacement left Hypothyroid ([facility]) Kidney stone with mild hydonephrosis Orthostatic hypotension Paroxysmal atrial fibrillation ([facility]) Personal history of medical treatment BORDERLINE MS, MG, ALS Vitreous hemorrhage ([facility]) 08/2017 Macular Pucker Past Surgical History: Procedure Laterality Date ABLATION A-FIB 11/2020 [facility] APPENDECTOMY CARDIAC SURGERY 09/2020 [facility] CATARACT EXTRACTION Right 02/2022 CHOLECYSTECTOMY 01/02/2022 CT [...] OTHER SURGICAL HISTORY cardiac ablasion (, , ) OTHER SURGICAL HISTORY 06/2020 stomach ucler OTHER SURGICAL HISTORY 03/07/2022 Watchman FLX Lt atrial appendage closure device AL THYROIDECTOMY SUBSTERNAL CERVICAL APPROACH 09/24/2018 RETINAL DETACHMENT SURGERY Left reattach THROAT SURGERY 09/13/2022 throat dilation at TOTAL KNEE ARTHROPLASTY Left 05/08/2016 partial TRANSESOPHAGEAL ECHOCARDIOGRAM (CHANTELLE) 04/25/2022 at IN URETERAL STENT PLACEMENT Left 01/2019 REVIEW OF [...] all orders for this visit: Postsurgical hypoparathyroidism (CMS/[facility]) - CREATINE, 24 HOUR URINE; Future - [...] 6 weeks (around 08/17/2024). documented in this encounterBothwell Regional Health [id number] History of Present illness Narrative* Shashi Pina, DO - 06/22/2024 1:15 PM EST Images from the original note were not [...] been gradually worsening since onset. There was facialand left- sided focality noted. Associated symptoms include an aura, chest pain, dizziness, fatigue,headaches, light-headedness, palpitations and shortness of breath. Pertinent [...] Medical History: Diagnosis Date A-fib (CMS/HCC) 11/2020 [facility] Abdominal aortic aneurysm without rupture (CMS/HCC) Aortic [...] History: Procedure Laterality Date ABLATION A-FIB 11/2020 [facility] APPENDECTOMY CARDIAC SURGERY 09/2020 [facility] CATARACT EXTRACTION Right 02/2022 CHOLECYSTECTOMY 01/02/2022 [...] Watchman FLX Lt atrial appendage closure device AL THYROIDECTOMY SUBSTERNAL CERVICAL APPROACH 09/24/2018 RETINAL DETACHMENT SURGERY Left reattach THROAT SURGERY 09/13/2022 throat dilation at TOTAL KNEE ARTHROPLASTY Left 05/08/2016 partial TRANSESOPHAGEAL ECHOCARDIOGRAM (CHANTELLE) 04/25/2022 at IN URETERAL STENT PLACEMENT Left 01/2019 Family History [...] , wrist extensors , wrist flexor , sterilisation technician strength 5/5. LUE Strength deltoid , biceps , triceps , wrist extensors , wrist flexor , sterilisation technician strength 5/5. RLE Strength illopsoas, quadriceps, tibialis [...] reflex 2+ . Gonzales's sign negative. Coordination: Kdvrtc-or-eekr testing and rapid alternating movements are normal [...] recommended. I have reviewed extensive notations from [facility] in January 2023 which detailed [...] discussed in detail. Patient understands with any shortnessof breath or neck flexor weakness that he should present to the emergency department right away forfurther evaluation and treatment. Atrial fibrillation / orthostatic hypotension /sick sinus syndrome/pacemaker and watchman device Patient does have a history of atrial fibrillation status post ablation, history of orthostasis andlightheadedness and has seen Cardiology Clinic with concern for sick sinus syndrome with a goal foridea of pacemaker implantation with Dr. Vilchis in [place]. Certainly close follow up with Cardiology team in [facility] are of the utmost importance. Plan: Close follow up with Cardiology for management of Watchman device and pacemaker Given the patient's history of atrial fibrillation, we did have an extensive discussion today aboutstroke risk factors and signs and symptoms of stroke and the patient understands to proceed to the emergency department right away with any such signs or symptoms as these could be life-threatening. If the patient's MRI of the brain and remaining laboratory evaluation for myasthenia gravis are unremarkable, we may ask that the patient be seen for tertiary care center for opinion by [facility] neuromuscular institute given the complex cardiac history and concern for seronegative myasthenia gravis. Certainly high-degree medical decision-making with need for extensive investigation in ongoing discussion investigation about potentially life- threatening issue such as myasthenic crisis. Pt has been fully educated on their diagnosis, lab results, treatment options, follow up plan, return instructions, and discussion of mental health issues documented in this encounterBothwell Regional Health [id number] History of Present illness Narrative* Eleonora Leo NP - 06/09/2024 10:00 AM EST Images from the original note were not [...] at all Patient Health Questionnaire-9 Score: 2 Kvng Fall Risk History of Falling, Immediate or [...] A few weeks prior, he consulted an blasting gang miner who conducted an ice test, which yielded positive results. Subsequent preliminary blood work was negative. He has previously sought neurological care at the [facility]. He has a history of smoking but does not recall undergoing any lung screening tests. He is aware ofsome calcification on the left side of his lungs but does not currently follow up with a metal furniture assembler. SOCIAL HISTORY The patient used to smoke [...] HISTORY: Past Medical History: Diagnosis Date A-fib ([facility]) 11/2020 [facility] Abdominal aortic aneurysm without rupture ([facility]) Aortic root dilatation ([facility]) Biliary acute pancreatitis without necrosis or infection Brain lesion SMALL BRAIN LESION C/W MS Cataract COVID-19 GI bleed History of being hospitalized 12/2021 abd pain, lap ivy History of partial knee replacement left Hypothyroid ([facility]) Kidney stone with mild hydonephrosis Orthostatic hypotension Paroxysmal atrial fibrillation ([facility]) Personal history of medical treatment BORDERLINE MS, MG, ALS Vitreous hemorrhage ([facility]) 08/2017 Macular Pucker Social History Tobacco Use [...] History: Procedure Laterality Date ABLATION A-FIB 11/2020 [facility] APPENDECTOMY CARDIAC SURGERY 09/2020 [facility] CATARACT EXTRACTION Right 02/2022 CHOLECYSTECTOMY 01/02/2022 [...] Watchman FLX Lt atrial appendage closure device AL THYROIDECTOMY SUBSTERNAL CERVICAL APPROACH 09/24/2018 RETINAL DETACHMENT SURGERY Left reattach THROAT SURGERY 09/13/2022 throat dilation at TOTAL KNEE ARTHROPLASTY Left 05/08/2016 partial TRANSESOPHAGEAL ECHOCARDIOGRAM (CHANTELLE) 04/25/2022 at IN URETERAL STENT PLACEMENT Left 01/2019 REVIEW OF [...] tenderness or frontal sinus tenderness. Mouth/Throat: Lips: [place]. Mouth: Mucous membranes are moist. Pharynx: Oropharynx [...] cardiology. Aneurysm of ascending aorta without rupture ([facility]/HCC) Stable. Arteriosclerosis of coronary artery ([facility]/HCC) - Lipid panel; Future Paroxysmal atrial fibrillation ([facility]/HCC) Stable. Follows with cardiology. Coronary artery disease involving [place] heart, unspecified vessel or lesion type, unspecified whether angina present (CMS/HCC) Essential hypertension ([facility]/HCC) - Comprehensive metabolic panel; Future Discussed current management plan. Goal BP less then 130/80. Discussed heart healthy diet, increasefruits and vegetables, limit salt intake. Encouraged increase [...] intractable migraine, so stated, with status migrainosus ([facility]/HCC) Meniere's disease, unspecified laterality Acquired ptosis of [...] dental exam. Vaccines and cancer screens reviewed forcompleteness. Screen labs as needed. Assessed needs for tools in the home for independence. Living will and durable power of state attorney reviewed. Updated patient problem list and reviewed all current medications with patient. Given time to ask questions. Assessment & Plan 1. Suspected myasthenia gravis. The patient reports symptoms including eyelid drooping and difficulty keeping the eye open, which occurs two to three times a week and started about 1.5 to 2 months ago. An ice test performed by the blasting gang miner was positive, but preliminary blood work was negative. A referral to [facility] in [place] will be initiated for further evaluation. 2. Health maintenance. The patient is up to date on colon cancer screening. Given the history of smoking, a lung screeningis recommended as no previous CT chest screening is on record. Blood work will be ordered to assesscholesterol levels, metabolic panel, and thyroid function. A lung screening (CT scan) will be scheduled to check for any lung nodules or masses. No follow-ups on file. documented in this encounterBothwell Regional Health [id number] Telephone encounter Note* Telephone Encounter - Riley Coleman - 05/28/2024 11:49 AM EST Lab Results given [facility] [id number] Miscellaneous Notes* Telephone Encounter - Riley Coleman - 05/28/2024 11:49 AM EST Lab Results given * Telephone Encounter - Elo Cruz MA - 05/27/2024 8:57 AM EST ----- Message from Dr. Radha Burris sent at 05/26/2024 10:06 PM EST ----- His recent testing requested by the specialist is negative. documented in this encounterBothwell Regional Health [id number] Telephone encounter Note* Telephone Encounter - Elo Cruz MA - 05/27/2024 8:57 AM EST ----- Message from Dr. Radha Burris sent at 05/26/2024 10:06 PM EST ----- His recent testing requested by the specialist is negative. Bothwell Regional Health [id number] NotePatient here for follow up [facility]. He was seeing Dr. Vilchis in the [...] light-headedness. All other systems reviewed and are negative.[facility] 04-28-2024 NoteCardiovascular Medicine [place] [facility] SUBJECTIVE Chief Complaint Patient presents with [...] cardiac catheterization 08/2023, POTS who presented to [facility] ED with ongoing chest pain that has [...] (CMS/HCC) Essential hypertension Coronary artery disease involving [place] coronary artery of [place] heart without angina pectoris Recurrent falls History [...] replacement Aphasia Bilateral pa (more content not included)...[facility] 04-10-2024 NoteHospital Medicine Discharge Summary Final Discharge Diagnosis: Unstable [...] pain, unspecified type [R07.9] Hospital course: Yoli Tolbert Jeseniamisaeljordi Isidor is a 68 y.o. male for primary hypertension, atrial fibrillation on sotalol status post watchman not on anticoagulation, sinus node dysfunction status post dual-chamber permanent pacemaker, coronary artery disease status post cardiac catheterization 08/2023, POTS who presented to [facility] ED with ongoing chest pain that has [...] Medications These medications were sent to [facility] [address] [place] [address] [address] [address] isosorbide mononitrate ER 30 mg 24 hr [...] symmetric air entry. Abdomen: (more content not included)...[facility] 04-10-2024 NoteHospital Medicine Discharge Summary Final Discharge Diagnosis: Unstable [...] cardiac catheterization 08/2023, POTS who presented to [facility] ED with ongoing chest pain that has [...] Medications These medications were sent to [facility] [address] [place] [address] [address] [place] [address] [address] isosorbide mononitrate ER 30 mg 24 hr [...] symmetric air entry. Abdomen: (more content not included)...[facility] 04-10-2024 Note Attestation signed by Erika Mesa [...] Teaching Physician's Revisions: none Erika Mesa MD [place] Cardiology Cardiology Progress Note Subjective Subjective: Patient [...] 5 mg, 5 mg, oral, TID, Lindy Hayes NP, 5 mg at 04/10/24 1043 nitroglycerin (Nitrostat) [...] 04/10/24 0827 105/78 36.6 ???C (97.9 ???F) Temporal 78 14 94 % -- 04/10/24 0500 -- -- -- -- -- -- 113 kg (250 lb) 04/10/24 0420 97/74 36.6 ???C (97.9 ???F) Temporal 81 13 -- -- 04/10/24 0015 109/87 36.8 ???C (98.2 ???F) Temporal 81 19 -- -- 04/09/24 1542 90/66 37.3 ???C (99.1 ???F) Temporal 81 17 96 % -- Physical Examination: [...] Value Ventricular Rate 79 Atrial Rate 79 AL Interval 246 QRS DURATION 76 QT Interval 384 QTC CALCULATION(BAZETT) 440 R-Dequincy 61 T Wave Dequincy 224 Impression Atrial-paced rhythm with prolonged AV [...] Bubble Study Result Date: 04/09/2024 1 1 [facility] Heart Station [address] [place], [place] [phone] (fax) Echocardiogram-[facility] Name: YOLI ANTUNEZ Study Date: 04/09/2024 11:49 AM B/P: 123 mmHg/92 mmHg HR: Date of : 1955 Location: [facility] Height: 78 in. Age: 68 year(s) Patient Room: 3109 Weight: 248 lb. Gender: Male Patient Status (more content not included)...[facility] 04-09-2024 NoteHospital Medicine Daily Progress Note - 04/09/2024 11:51 AM; Room: 3109/3109-01 Admission: 04/08/2024 3:17 PM; Length of stay: 0 days THE HOSPITALIST TEAM PREFERS TO USE [employer] CHAT FOR NON-URGENT COMMUNICATION 7AM-7PM. IF I DO NOT RESPOND WITHIN 20 MINUTES OR URGENT MATTERS, PLEASE CALL THROUGH THE V BELT FINISHER. FROM 7PM-7AM, PLEASE PAGE [phone](COVR). Code Status: Full Code Barriers to Discharge: [...] pain Active Problems: EMELIA (acute kidney injury) ([facility]) Abnormal ECG Assessment and Plan chest pain, [...] LDL 144 11/05/2019 No results found for: [id number] , IRON , TIBC , C3 , [...] Self Care (01) Signed Eddi Hutchinson MD Hospital Medicine 04/09/2024 11:51 [facility] NoteHospital Medicine History and Physical 04/09/2024 2:39 AM THE HOSPITALIST TEAM PREFERS TO USE [employer] CHAT FOR NON-URGENT COMMUNICATION 7AM-7PM. IF I DO NOT RESPOND WITHIN 20 MINUTES OR URGENT MATTERS, PLEASE CALL THROUGH THE V BELT FINISHER. FROM 7PM-7AM, PLEASE PAGE [phone](COVR). Chief Complaint Chief Complaint Patient presents with Chest Pain Shortness of Breath History of Present Illness Yoli Tolbert Jeseniamisaeljordi Page. is an 68 y.o. 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 Patient presented to [facility] ED with c/o chest pain. Patient reports [...] at times. He reports he saw his band singer today who performed an EKG which showed acute lead inversions prompting band singer to send him into the ED. Patient [...] negative. BNP unremarkable 66. Patient admitted to [facility] with cardiology consult for further evaluation and [...] pain Active Problems: EMELIA (acute kidney injury) ([facility]) Abnormal ECG Assessment and Plan Chest pain [...] and PT, PT/INR, APTT (more content not included)...[facility]12-18-2024 Note[facility] Reason for Consultation: Acute chest [...] angina and have sent him to the [facility] emergency room for further evaluation. I called the emergency room physician and spoke with them personally and also called the planer mill grader on the inPatient's service and spoke with [...] MR HEAD ANGIO WO IV CONTRAST 07/09/2022 [facility] MR IMAGING MR NECK ANGIO WO IV CONTRAST 07/09/2022 MR NECK ANGIO WO IV CONTRAST 07/09/2022 [facility] MR IMAGING NECK SURGERY THYROIDECTOMY SH: Social Determinants of Health Tobacco Use: Medium Risk (04/08/2024) Patient History Smoking Tobacco Use: Former Smokeless Tobacco Use: Former Passive Exposure: Not on file Alcohol Use: Not At Risk (12/17/2023) Received from [facility], [facility] AUDIT-C Frequency of Alcohol Consumption: Monthly or [...] Physical Activity: Sufficiently Active (12/17/2023) Received from [facility] Exercise Vital Sign Days of Exercise per Week: 7 days Minutes of Exercise per Session: 30 min Stress: Patient Declined (12/17/2023) Received from [facility] [employer] - Occupational Stress Questionnaire Feeling of Stress : Patient declined Social Connections: Moderately Isolated (12/17/2023) Received from [facility] Social Connection and Isolation Panel [NHANES] Frequency of Communication with Friends and Family: More than three times a week Frequency of Social Gatherings with Friends and Family: More than three times a week Attends Shinto Services: Never Active Member of Clubs or Organizations: No Attends Club or Organization Meetings: Never Marital Status: Intimate Partner Violence: Not At Risk (01/27/2024) Humiliation, Afraid, Rape, and Kick questionnaire Fear of Current or Ex-Partner: No Emotionally Abused: No Physically Abused: No Sexually Abused: No Depression: Not at risk (02/06/2024) Received from [facility] PHQ-2 Patient Health Questionnaire-2 Score: 0 Housing Stability: Low Risk (01/27/2024) Housing Stability Vital Sign Unable to Pay for Housing in the Last Year: Not on file Number of Places Lived in the Last Year: Not on file Unstable Housing in the Last Year: No Utilities: Not At Risk (01/27/2024) [facility] Utilities Threatened with loss of utilities: No Health Literacy: Adequate Health Literacy (12/17/2023) Received from [facility] B1300 Health Literacy Frequency of need for help with medical instructions: Never Meds: No current facility-administered medications on file prior to visit. (more content not included)...[facility]11-20-2024 Note [facility] Reason for Consultation: Lightheadedness, dizziness, [...] I spent more than 45 minutes in wktt-[id number] patient counseling and therapeutic decision making with [...] MR HEAD ANGIO WO IV CONTRAST 07/09/2022 [facility] MR IMAGING MR NECK ANGIO WO IV CONTRAST 07/09/2022 MR NECK ANGIO WO IV CONTRAST 07/09/2022 [facility] MR IMAGING NECK SURGERY THYROIDECTOMY SH: Social Determinants of Health Tobacco Use: Medium Risk (02/06/2024) Received from [employer], [facility] [employer] Patient History Smoking Tobacco Use: Former Smokeless Tobacco Use: Never Passive Exposure: Not on file Alcohol Use: Not At Risk (12/17/2023) Received from [facility] AUDIT-C Frequency of Alcohol Consumption: Monthly or [...] Physical Activity: Sufficiently Active (12/17/2023) Received from [facility] Exercise Vital Sign Days of Exercise per Week: 7 days Minutes of Exercise per Session: 30 min Stress: Patient Declined (12/17/2023) Received from [facility] [employer] - Occupational Stress Questionnaire Feeling of Stress : Patient declined Social Connections: Moderately Isolated (12/17/2023) Received from [facility] Social Connection and Isolation Panel [NHANES] Frequency of Communication with Friends and Family: More than three times a week Frequency of Social Gatherings with Friends and Family: More than three times a week Attends Shinto Services: Never Active Member of Clubs or Organizations: No Attends Club or Organization Meetings: Never Marital Status: Intimate Partner Violence: Not At Risk (01/27/2024) Humiliation, Afraid, Rape, and Kick questionnaire Fear of Current or Ex-Partner: No Emotionally Abused: No Physically Abused: No Sexually Abused: No Depression: Not at risk (02/06/2024) Received from [facility] PHQ-2 Patient Health Questionnaire-2 Score: [address] (more content not included)...[facility] 02-26-2024 NoteSYNCOPE AND AUTONOMIC DISORDERS CLINIC Reason for Consultation: Follow-up of new onset atrial fibrillation HPI: Yoli Tolbert Harmony Isidro is a 68 y.o. year [...] occurred. I spent over 45 minutes in [id number]-[id number] counseling and therapeutic decision making during which [...] MR HEAD ANGIO WO IV CONTRAST 07/09/2022 [facility] MR IMAGING MR NECK ANGIO WO IV CONTRAST 07/09/2022 MR NECK ANGIO WO IV CONTRAST 07/09/2022 [facility] MR IMAGING NECK SURGERY THYROIDECTOMY SH: Social [...] Year: No Utilities: Not At Risk (01/27/2024) [facility] Utilities Threatened with loss of utilities: No [...] pain Nose: no frequent (more content not included)...[facility] [id number] Telephone encounter Note* Telephone Encounter - Riley Coleman - 02/10/2024 11:10 AM EDT Jamil was in last week for rash - was told if not better to call the office . It isnt any better -asking if something else can be called in [id number] Miscellaneous Notes* Telephone Encounter - Riley Coleman - 02/10/2024 11:10 AM EDT Jamil was in last week for rash - was told if not better to call the office . It isnt any better -asking if something else can be called in [facility] documented in [facility] encounterBothwell [facility] Health [id number] History of Present illness Narrative* Radha Burris MD - 02/06/2024 10:46 AM EDTAssociated Problem(s): Paroxysmal atrial fibrillation (CMS/HCC) Now back in sinus. * Radha Burris MD - 02/06/2024 9:00 AM EDT Images from the original note [...] y.o. male presents with chief complaint of Follow- up (Rash on both legs the past couple months. Rash has stayed the same. [facility] on 01/29 patient went in for chest pain dueto afib but chest pain has stopped since then. ) HPI: HPI History of Present Illness The patient presents for evaluation of multiple medical concerns. He experienced chest pain, initially thought to be a recurrence of atrial fibrillation (AFib). 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 He has previously tried Zoloft for anxiety wi thout success. He has not experienced any chest pain since returning home but finds relief from nitroglycerin and sitting down when it occurs. He has reported this to cardiology who again is recommending psychiatric treatment. He continues to experience gastrointestinal issues and has been unable to secure a referral for further treatment. Three referrals were sent to the [facility], but they claim to have lost the [...] but only experienced symptoms on his arms, whichhave since cleared up. SUBJECTIVE: MEDICATIONS: Current Outpatient [...] PLAN: Assessment & Plan 1. Anxiety. The band singer confirmed that the recent chest pain was [...] will be prescribed for a few days toalleviate the itching. If there is no improvement, a scabies treatment will be considered to ensureall potential causes are addressed. 3. Referral Management. There have been issues with the referral to the [facility] for his gastrointestinal problems, with multiple attempts to send the referral being unsuccessful. The team will call the [facility] today to ensure all necessary information is provided and expedite the referral process. Assessment/Plan Problem List Items Addressed This Visit Anxiety - Primary Relevant Medications FLUoxetine (PROzac) 20 MG capsule Paroxysmal atrial fibrillation (CMS/HCC) Now back in sinus. Principal Examiner wants the anxiety treated. Discussed in detail with him today. Other Visit Diagnoses Dermatitis Relevant Medications mometasone (Elocon) 0.1 % ointment Family History Problem Relation Name Age of Onset Lung cancer Mother Hypertension Mother Stroke Mother Aneurysm Father Lung cancer Father Hypertension Father No Known Problems Brother Flowsheet Row Patient Outreach from 10/14/2023 in [facility] with Radha Taylor RN Hospital Information ED, Hospital or Jail Facility Discharge? ED Patient has been contacted within 1 week of being seen in the ED No Have two attempts been made to contact the patient within one week of being seen in the ED? No Discharge Date 10/05/23 Discharged To: Home Setting Discharge Hospital [facility] Engagement Call Start Time 1200 Medications Discharge [...] Up Wrap Up Additional Comments Pt to [facility] 10/05/23. He presented with left index finger infection - he drilled a screw into finger. He was eval, treated and dc to home. DX: Cellulitis and Chest pain. New prescription given: Doxycycline. Call End Time 1206 No follow-ups on file. documented in this encounterBothwell Regional Health [id number] NoteUT Electrophysiology Consult Note [place] Cardiology - [facility] Reason for visit: Atrial fibrillation [...] was on 01/28/24. Prior HPI: Yoli Antunez JrAmarjit is a 68 y.o. year old with [...] had A-fib ablation by [facility] in [place] with PVI plus posterior box isolation was [...] MR HEAD ANGIO WO IV CONTRAST 07/09/2022 [facility] MR IMAGING MR NECK ANGIO WO IV CONTRAST 07/09/2022 MR NECK ANGIO WO IV CONTRAST 07/09/2022 [facility] MR IMAGING NECK SURGERY THYROIDECTOMY SH: Social [...] Year: No Utilities: Not At Risk (01/27/2024) [facility] Utilities Threatened with loss of utilities: No [...] mouth in the mornin (more content not included)...[facility]10-10-2024 Note Patient provided copy of AVS and discharge instructions. All questions and concerns addressed. Patient declined being wheeled down in wheelchair. Patient ambulated independently to front entrance without assistance.[facility]10-10-2024 NoteHospital Medicine Discharge Summary Final Discharge Diagnosis: Atrial fibrillation with rapid ventricular response Admission Diagnosis: Chest pain [R07.9] Hospital course: Yoli Richelle Antunez Jr. is an 68 y.o. male who came from home with past medical history of A-fib s/p watchman, hypertension, hypothyroidism, CKD 3, POTS, CAD s/p PCI, SSS s/p PPM, aneurysm of ascending aorta presents as a direct admission from [facility] with a chief complaint of chest pain and plan for cardiac cath. Patient initially went to [facility] this past Saturday with intermittent chest tightness/pain [...] During Admission: Cardiology Dear Dr. Fatuma MD, [place] is advised to follow up with you within 1-2 weeks. Items to follow up in ambulatory setting: None Follow-up with: Cardiology Scheduled appointments: Future Appointments Date Time Provider Department Center 02/26/2024 9:30 AM Shukri Vilchis MD [facility]. [facility] medication list START taking these medications Instructions [...] Medications These medications were sent to [facility] [address] [place] [address] [facility] [address] [address] atorvastatin 40 mg tablet sotalol 80 mg tablet Yoli is allergic to penicillins, tikosyn [dofetilide], and vancomycin. Disposition: Home or Self Care () Discharge Condition: Stable Code Status: Full Code Diagnostic Results Hematology: Results from last 7 days Lab Units 01/28/24 04101/27/24 1828 WBC AUTO 10*3/uL 9.98 10.27 HEMOGLOBIN [...] was 60 minutes. Signed Eddi Hutchinson MD [facility] Medicine 01/30/2024 10:10 AM CC: MD [facility]-10-2024 NoteUTP CARDIOLOGY INPATIENT PROGRESS NOTE Reason for follow up: Afib [...] 01/30/24 0806 108/77 36.7 ???C (98.1 ???F) Temporal 67 18 98 % -- 01/30/24 0504 -- -- -- -- -- -- 104 kg (228 lb 12.8 oz) 01/30/24 0409 123/85 36.2 ???C (97.2 ???F) Temporal 67 18 100 % -- 01/30/24 0024 104/72 36.1 ???C (97 ???F) Temporal -- 18 100 % -- 01/30/24 0023 104/72 -- -- 68 -- -- -- 01/29/24 2018 114/80 36.3 ???C (97.3 ???F) Temporal 66 [...] Value Ventricular Rate 56 Atrial Rate 56 AL Interval 202 QRS DURATION 90 QT Interval 508 QTC CALCULATION(BAZETT) 490 P Dequincy 77 R-Dequincy 36 T Wave Dequincy 73 Impression Atrial-paced rhythm Prolonged QT Abnormal ECG When compared with ECG of 29-JAN-2024 15:54, Electronic atrial pacemaker has replaced Sinus (more content not included)...[facility] 01-29-2024 Note As the teaching physician, I have personally performed or re- performed the history of present illness, physical exam and medical decision-making activities of the encounter and verified the medical student's documentation. I made pertinent changes as necessary to ensure accurate documentation. There may be additional comments below. [facility]10-09-2024 Note Hospital Medicine Daily Progress Note - 01/29/2024 11:02 AM; Room: [address] [place] [address] Admission: 01/27/2024 5:54 PM; Length of stay: 2 days THE HOSPITALIST TEAM PREFERS TO USE [employer] CHAT FOR COMMUNICATION 7AM-7PM. IF I DO NOT RESPOND WITHIN 15 MINUTES, PLEASE PAGE ME/CALL THROUGH THE V BELT FINISHER. FROM 7PM-7AM, PLEASE PAGE [phone](COVR) Code Status: Full Code Overview Patient is seen for evaluation and management of chest pain and plan for heart cath (direct admit from [facility]) Subjective Patient examined at bedside today. States [...] sinus syndrome (CMS/HCC) Coronary artery disease involving [place] coronary artery of [place] heart Atrial fibrillation with RVR (CMS/HCC) Assessment and Plan Yoli Antunez Jr. is an 68 y.o. male who came from home with past medical history of A-fib s/p watchman, hypertension, hypothyroidism, CKD 3, POTS, CAD s/p PCI, SSS s/p PPM, aneurysm of ascending aorta presents as a direct admission from [facility] with a chief complaint of chest pain [...] mmol/L 108* -- 108* 106 CO2 mmol/L 26 -- 25 24 BUN mg/dL 31* -- [...] LDL 144 11/05/2019 No results found for: [id number] , IRON , TIBC , C3 , C4 , KYLE , CANCA , ASO , PSA , CEA , CA125 , CA199 , AFP , CA153 Imaging ECG 12 lead Normal sinus rhythm with sinus arrhythmia Nonspecific T wave abnormality Prolonged QT Abnormal ECG Discharge Planning Discharge Planning Type of Residence: Private residence Patient's goal for discharge: home Signed Norris Winter MS4 [facility] Medicine 01/29/2024 11:02 [facility]10-09-2024 NoteUTP CARDIOLOGY INPATIENT PROGRESS NOTE Reason for follow up: Afib [...] -- Temporal 77 14 100 % -- 01/28/246 112/80 36.7 ???C (98 ???F) Temporal 80 16 95 % -- 01/28/24 2013 110/76 -- -- 94 -- 98 % -- 01/28/24 1302 119/84 36.3 ???C (97.3 ???F) [facility] 103 -- 99 % -- 01/28/24 1259 [...] Value Ventricular Rate 65 Atrial Rate 65 AL Interval 182 QRS DURATION 80 QT Interval 472 QTC CALCULATION(BAZETT) 490 P Dequincy 23 R-Dequincy 29 T Wave Dequincy 81 Impression Demand atrial pacing Nonspecific T [...] 4:40:31 PM QT Interval: 392 ms P Dequincy: 67 degrees T Wave Dequincy: 156 degrees QTC CALCULATION(BAZETT): 437 ms Ventricular Rate: 7 (more content not included)...[facility]10-08-2024 Note As the teaching physician, I have personally performed or re-performed the history of present illness, physical exam and medical decision-making activities of the encounter and verified the medical student's documentation. I made pertinent changes as necessary to ensure accurate documentation. There may be additional comments below. [facility]10-08-2024 Note Pharmacy Consult for Sotalol - Daily Consult Note Yoli Antunez Jr. is a 68 y.o. male admitted for Chest pain. Pharmacy is consulted to review profile for any QT prolonging drugs. Patient is scheduled to start sotalol 80 mg q12h Current Medication List: aspirin, 81 mg, oral, Daily calcium, 500 mg, oral, Daily heparin (porcine), 5,000 Units, subcutaneous, q12h CATYH levothyroxine, 150 mcg, oral, Daily before breakfast sotalol, 80 mg, oral, q12h PRN medications: acetaminophen, melatonin Qtc Prolonging Medications that may interact with sotalol: None Lab Results: Results from last 7 days Lab Units 01/28/24 0411 01/27/24 1828 POTASSIUM mmol/L 4.1 3.8 MAGNESIUM mg/dL -- 1.9 Last EKG: Encounter Date: 01/27/24 ECG 12 lead Result Value Ventricular Rate 110 Atrial Rate 110 AL Interval 204 QRS DURATION 90 QT Interval 320 QTC CALCULATION(BAZETT) 433 P Dequincy 35 R-Dequincy -5 T Wave Dequincy 211 Impression Sinus tachycardia Nonspecific ST and [...] concerns. Thank you for the consult! Panchito Valerio PharmD [facility]24[facility] Note01/28/24 1030 Admission Assessment Questions Verify insurance with [...] Not Interested Does the patient have a casework specialist assigned to them through their insurance? No [...] link and activate MyChart? MyChart already active [facility]10-08-2024 NoteHospital Medicine Daily Progress Note - 01/28/2024 10:27 AM; Room: [address] [place] [address] Admission: 01/27/2024 5:54 PM; Length of stay: 1 days THE HOSPITALIST TEAM PREFERS TO USE [employer] FOR COMMUNICATION 7AM-7PM. IF I DO NOT RESPOND WITHIN 15 MINUTES, PLEASE PAGE ME/CALL THROUGH THE V BELT FINISHER. FROM 7PM-7AM, PLEASE PAGE [phone](COVR) Code Status: Full Code Overview Patient is seen for evaluation and management of chest pain and plan for heart cath (direct admit from [facility]) Subjective Patient examined at bedside today. States [...] sinus syndrome (CMS/HCC) Coronary artery disease involving [place] coronary artery of [place] heart Atrial fibrillation with RVR (CMS/HCC) Assessment and Plan Yoli Antunez Jr. is an 68 y.o. male who came from home with past medical history of A-fib s/p watchman, hypertension, hypothyroidism, CKD 3, POTS, CAD s/p PCI, SSS s/p PPM, aneurysm of ascending aorta presents as a direct admission from [facility] with a chief complaint of chest pain [...] from last 7 days Lab Units 01/28/24 04101/27/24 1828 WBC AUTO 10*3/uL 9.98 10.27 HEMOGLOBIN [...] LDL 144 11/05/2019 No results found for: [id number] , IRON , TIBC , C3 , [...] 01/27/2024 10:39:18 PM Discharge Planning Signed Norris Winter MS4 [facility] Medicine 01/28/2024 10:27 [facility]10-07-2024 NoteHospital Medicine History and Physical 01/27/2024 7:22 PM THE HOSPITALIST TEAM PREFERS TO USE [employer] CHAT FOR NON-URGENT COMMUNICATION 7AM-7PM. IF I DO NOT RESPOND WITHIN 20 MINUTES OR URGENT MATTERS, PLEASE CALL THROUGH THE V BELT FINISHER. FROM 7PM-7AM, PLEASE PAGE [phone](COVR). Chief Complaint [facility] History of Present Illness Yoli Tolbert Harmony Page. is an 68 y.o. male who came from home with past medical history of A-fib s/p watchman, hypertension, hypothyroidism, CKD 3, POTS, CAD s/p PCI, SSS s/p PPM, aneurysm of ascending aorta presents as a direct admission from [facility] with a chief complaint of chest pain and plan for cardiac cath. Patient initially went to [facility] this past Saturday with intermittent chest tightness/pain [...] sinus syndrome (CMS/HCC) Coronary artery disease involving [place] coronary artery of [place] heart Assessment and Plan Yoli Antunez is an 68 y.o. male who came from home with past medical history of A-fib s/p watchman, hypertension, hypothyroidism, CKD 3, POTS, CAD s/p PCI, SSS s/p PPM, aneurysm of ascending aorta presents as a direct admission from [facility] with a chief complaint of chest pain [...] hypertension, continue medications #Hypothyroi (more content not included)...[facility] 01-20-2024 History of Present illness Narrative* Sofia Vigil, RAHUL - 01/20/2024 4:00 PM EDT Images from the original note were not included. Yoli Tolbert Foxjordi is a 68 y.o. male presents with [...] Take medications as prescribed. documented in this encounterBothwell Regional Health [id number] History of Present illness Narrative* Shivani Adams, RADIOLOGIC ELECTRONIC SPECIALIST - 01/13/2024 1:30 PM EDT Images from the original note were not included. Yoli Antunez is a 68 y.o. male presents with chief complaint of Rash (Behind both legs, forthe past 3-4 weeks. Was using calamine lotion. [...] Thoracic aortic ectasia (CMS/HCC) documented in this encounterBothwell Regional Health CenterKdxpxcslje88-31-6954 Evaluation note* Type Assessment Date assessment Other cervical disc degeneration , unspecified cervical region [facility] Work Phone: [phone] History of Present illness Narrative* Encounter Date [...] back for a follow up from his band singer. New Problem Spine-cervical Locat ion: Pain diagram [...] [facility] New Problem Spine-cervical Locat ion: Bilateral cervical [...] well up until a few months ago. [facility] Work Phone: 1([phone]) 435-588809-04-2024 [facility] Chief Complaint: follow up for dizziness and chest pain. HPI: Yoli nAtunez Jr. is a 68 y.o. male with a complex medical history including paroxysmal atrial fibrillation s/p watchman device, chronic kidney disease, dyslipidemia and hypertension. He has atypical/noncardiac chest pain, he is here for follow-up I reviewed the results of his cardiac catheterization 02/2021; this was done at [facility]. He has mild nonobstructive coronary [...] family physician. 3.- Will follow up with automation engineer Dr. Vilchis. Serene Solis MD Banquet Manager - PGY6 [facility] By using the attestations below, the signing clinician ag (more content not included)...[facility]09-03-2024 History of Present illness Narrative* Radha Burris [...] medication, he has not found relief. His band singer, Dr. Vilchis, is uncertain if these symptoms [...] is seeking a referral to a new investments manager as he was dissatisfied with his previous [...] Current Outpatient Medications Medication Instructions calcium carbonate (Os-Tailio) 1250 (500 Ca) MG chewable tablet 1 [...] addition of sildenafil or tadalafil by his band singer, it is prudent not to alter his [...] referral will be made to a new investments manager for further evaluation and management of his diarrhea. He has tried multiple medications, including cholestyramine and Imodium, without significant relief. Assessment/Plan Problem List Items Addressed This Visit Angina at rest (CMS/HCC) Other Visit Diagnoses Diarrhea, unspecified type - Primary Relevant Orders Ambulatory referral to Gastroenterology Autonomic dysfunction documented in this encounterBothwell Regional Health [id number] History of Present illness Narrative* María Pearl APRN.[facility] - 05/31/2023 10:45 AM EST Yoli Antunez is a 68 year old male. Patient presents with: Follow Up Today I had the opportunity to have a virtual visit with Yloi Antunez I have communicated my name and active licensure. The patient's identity and physical location wereverified at the time of this visit. Either the patient or their legal hvac sales representative has been informed of the [...] will repeat tilt table testing here at [facility]. We reviewed the diagnosis of orthostatic hypotension. [...] was seen by Dr. Vilchis at the [facility] yesterday. Dr. Vilchis feels that Jamil has sick sinus syndrome. He is going to have a pacemaker placed. Jamil is going to have an echocardiogram and stress test next week. Pacemaker to follow the above testing. Skin nerve biopsy here at [facility] not indicative of small fiber neuropathy. Abnormality [...] He was seen by Dr. Vilchis at [facility] who would like to place a [...] which included preparing to see the patient, hode-ks-doas patient care, completing clinical documentation, obtaining and/or [...] orders found for this visit on 05/31/23. Mraía Pearl MSN, PAPERHANGER, FORMATION FRACTURING OPERATOR-C documented in this encounterLicking Memorial Hospital01-29-2024 Evaluation note* Encounter Date Diagnosis Assessment Notes Treatment Notes Treatment Clinical Notes Apr, Abdominal pain (ICD-10 - R10.9) Apr, Diarrhea (ICD-10 - R19.7) [facility]* Encounter Date Diagnosis Assessment Notes Treatment Notes Treatment Clinical Notes Mar, Abdominal pain (ICD-10 - R10.9) Mar, Diarrhea (ICD-10 - R19.7) [facility] Other 11-29-2023 Evaluation note* Encounter Date Diagnosis Assessment Notes Treatment Notes Treatment Clinical Notes Feb, Diarrhea (ICD-10 - R19.7) Feb, Hiatal hernia (ICD-10 - K44.9) [facility] Other 11-06-2023 History of Present illness Narrative* Joann Stark PA-C - 02/25/2023 2:09 PM EST Skin Biopsy Procedure Note Skin Biopsy Accession Number: [id number] Biopsy Date: 02/25/2023 Referring physician: María Pearl [...] Procedure Note Procedure confirmed with provider and customer support analyst. Yes, left leg 2 skin [...] home. Specimens were labeled and sent to [facility]. Procedure was performed by: Joann Stark PA-C Assistance in supply/equipment preparation performed by: DAVID Downs Sign out is complete. documented in this encounterLicking Memorial Hospital10-17-2023 Miscellaneous Notes* Telephone Encounter - Shivani Nath RN - 02/05/2023 1:00 PM EDT Images from the original note were not included. María Pearl APRN.FUEL TECHNICIAN You 7 minutes ago (12:52 PM) This is a normal result. [place] YAMILA Carnes, RN * Telephone Encounter - Shivani Nath RN - 02/05/2023 12:48 PM EDT Images from the original note were not included. Copper: YAMILA Carnes, RN * Telephone Encounter - Aydee Hunter - 02/05/2023 12:06 PM EDT Scanned in results from [facility] for review documented in this encounterLicking Memorial Hospital10-12-2023 History of Present illness Narrative* Yossi [...] scan are done. documented in this encounterDayton [facility] Center Work Phone: [phone] 630-155810-12-2023 Instructions* Patient Instructions* Yossi Chen MD - 01/31/2023 3:00 PM EDT I will get stool culture and CT scan to figure out the reason for the abdominal pain and diarrhea documented in this encounterDayton VA Medical Center Work Phone: [phone] Miscellaneous Notes* Telephone Encounter - Dominique Burns RN - 01/28/2023 4:08 PM EDT Images from the original note were not included. María Pearl APRN.FUEL TECHNICIAN You 6 hours ago (9:39 AM) I have a message out to headache clinic about adjusting his medication. YAMILA Cage, RN, BA documented in this encounterLicking Memorial Hospital10-09-2023 Miscellaneous Notes* Telephone Encounter - Dominique Burns RN - 01/28/2023 3:39 PM EDT JESSICA sent MCM to patient. Patient read. YAMILA Cage, RN, BA documented in this encounterLicking Memorial Hospital10-09-2023 Miscellaneous Notes* Telephone Encounter - Dominique Burns RN - 01/28/2023 10:43 AM EDT Images from the original note were not included. María Pearl APRN.FUEL TECHNICIAN You 15 minutes ago (10:27 AM) Thank you. Appears normal. YAMILA Vivar, RN, BA * Telephone Encounter - Dominique Burns RN - 01/28/2023 9:58 AM EDT Images from the original note were not included. YAMILA Cage, RN, BA * Telephone Encounter - HoovenAydee - 01/28/2023 9:36 AM EDT Scanned in results from [facility] for review documented in this encounterLicking Memorial Hospital09-11-2023 History of Present illness Narrative* Kassie Richardson APRN.FUEL TECHNICIAN - 12/31/2022 3:15 PM EDT [facility] Follow up visit December 31, 2022 [...] He was evaluated by Cardiology at the [facility] for syncopal episodes. 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 put in in the front cement boat and barge loader and helped him to the house [...] essentially unremarkable including troponins and ECG 09/11/2022 [facility]- Cardiology - Jackie Banks RADIOLOGIC ELECTRONIC SPECIALIST wrote: I copied and pasted my initial consult note from [facility] date 07/20/2022 for continuity of care: Hx paroxysmal atrial fibrillation. Undervent a watchman device implant at [facility] 03/06/2022. History of CAD. AAA not increased, [...] Last evaluated one month ago [facility] neurology [facility]. Recent MRA MRV. HPI: Syncope began [...] Items Addressed This Visit Ref[facility]; Headache 1 Onset: - Migraine headache [...] kidney disease) stage 3, GFR 30-59 ml/min ([facility]) Ex-smoker Gastric ulcer GERD (gastroesophageal reflux disease) Gout History of GI bleed HLD (hyperlipidemia) Hypertension 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 ADA treated with BiPAP Peripheral neuropathy Restless leg syndrome TIA (transient ischemic attack) x 2 ALLERGIES Allergen Reactions Penicillins Unknown Tikosyn [Dofetilide] Other: See Comments Aphasia, dizzy, muscle cramps Vancomycin Anaphylaxis MR neck / head angio 07/09/2022- at [facility] Impression No gross evidence for flow-limiting stenosis of bilateral extrarenal vertebral or carotid arteries accounting for extensive patient motion artifact. If persistent concern for an abnormality of the carotid or vertebral arteries, consider CTA if clinically indicated. Impression No focal stenosis, occlusion, or aneurysmal dilatation. Complete [place] of [place]. CT brain 05/23/2022 Impression *Negative [...] osteopenia, and partially imaged atlantoaxial arthritic changes. Recovery Unit Operator (topogram) images: No additional findings. HEADACHE SCORES: [...] articulation, and clear,coherent, and relevant. Short and ad terminal makeup operator memory, cognition and general fund of knowledge [...] followed by aphasia. He was evaluated in [place] for syncope - felt it was neurocardiogenic [...] which included preparing to see the patient, lhrb-ce-hfaa patient care, completing clinical documentation, obtaining and/or reviewing separately obtained history, performing a medically appropriate examination, counseling and educating the patient/family/caregiver, and ordering medications, tests, or procedures. Kassie Richardson APRN.FUEL TECHNICIAN Headache Section [facility] December 31, 2022 5:03 PM documented in this encounterLicking Memorial Hospital08-03-2023 NoteSend Summary: Discharge Summary Providers: Provider RoleProvider Name Radha Jorge Abraham PrimaryHohman, Jennifer Note Recipients: Radha Burris MD - [id number] [] Discharge: Summary: Admission Date: .21-Nov-2022 05:06:00 [...] discharge: Full Code Electronic Signatures: Sivan Costa (BRENNA-FUEL TECHNICIAN) (Signed 22-Nov-2022 12:13) Authored: Send Summary, Summary Content, Ongoing Care, DNR Status Yossi Chen) (Signed 22-Nov-2022 12:27) Authored: Summary Content, Ongoing Care, Note Completion Last Updated: 22-Nov-2022 12:27 by Yossi Chen)[facility] 11-21-2022 NotePost Operative Note: PreOp Diagnosis: symptomatic hiatal hernia Post-Procedure Diagnosis: same Procedure: 1. Laparoscopic repair of Type 3 paraesophageal hernia with Toupet wrap and gastroscopy 2. 3. 4. 5. Surgeon: April Resident/Fellow/Other Correctional Food Service Supervisor: Adrián/Elio Estimated Blood Loss (mL): none Specimen: [...] circumferentially. The retroesophageal window was created. The [place] drain was placed. I proceeded with mediastinal [...] esophagus to the right side. A lighted 56-Bulgarian bougie was placed. The shoeshine maneuver was [...] #1 Ethibond with a Tony-Ran in a ffretv-ye-iqjfn fashion. The liver retractor was removed. The [...] Completion Last Updated: 21-Nov-2022 13:27 by Yossi Chen)[facility] 11-21-2022 History of Present illness Grptxufdo19-vher-nnx patient who underwent laparoscopic repair of paraesophageal [...] it down withwater. Denies heartburn and acid reflux.-[facility] [address] DO Work Phone: 1([phone]) 374-520208-02-2023 History of Present illness Narrative 67-year-old patient [...] reflux, heartburn and having less coughing with meal-[facility] [facility] DO Work Phone: 1([phone]) 431-149308-02-2023 NoteHistory & Physical Reviewed: I have reviewed [...] Completion Last Updated: 21-Nov-2022 07:15 by Yossi Chen)[facility] 11-16-2022 Miscellaneous Notes* Telephone Encounter - Jessica Scott - 11/16/2022 5:55 PM EDT Received faxed report of medical records done at . Uploaded via [employer], will be available in Tasted Menu for review shortly. documented in this encounterLicking Memorial Hospital07-03-2023 Miscellaneous Notes* Telephone Encounter - Kassie Richardson APRN.CNP - 10/22/2022 4:33 PM EDT Opened in error Kassie Richardson APRN.CNP documented in this encounterLicking Memorial Hospital06-29-2023 History of Present illness Narrative* Michaela [...] discharged from treatment room. documented in this encounterLicking Memorial Hospital06-26-2023 NotePROCEDURE DETAILS Preoperative Diagnosis: Sleep apnea, G47.30 Postoperative Diagnosis: Sleep Apnea Surgeon: Arabella Terry Resident/Fellow/Other Correctional Food Service Supervisor: None of these were associated with this [...] Completion Last Updated: 15-Oct-2022 11:11 by Arabella Terry)[facility]06-26-2023 Miscellaneous Notes* Op Note - Arabella Butt MD - 10/15/2022 11:02 AM EDT PROCEDURE DETAILS Preoperative Diagnosis: Sleep apnea, G47.30 Postoperative Diagnosis: Sleep Apnea Surgeon: Arabella Terry Resident/Fellow/Other Correctional Food Service Supervisor: None of these were associated with this [...] by Arabella Terry) documented in this [facility] Work Phone: 1([phone]) 669-615006-26-2023 Note* Op Note - Arabella Butt MD - 10/15/2022 11:02 AM EDT PROCEDURE DETAILS Preoperative Diagnosis: Sleep apnea, G47.30 Postoperative Diagnosis: Sleep Apnea Surgeon: Arabella Terry Resident/Fellow/Other Correctional Food Service Supervisor: None of these were associated with this [...] Last Updated: 15-Oct-2022 11:11 by Arabella Terry) [facility] Work Phone: 1([phone]) 295-526506-06-2023 Chief complaint Narrative - Reported* An interactive audio and video telecommunication system which permits real time communications between the patient (at the originating site) and provider (at the distant site) was utilized to providethis telehealth service. * Verbal consent was requested and obtained from YOLI ANTUNEZ on this date, 09/25/2022 02:30 PM, for a telehealth visit. * Dysphagia follow-up ZY-Fpkmjiplmfbplb-Zqkxhgh Work Phone: 1(114) 542-794005-25-2023 History of Present illness Narrative* 67 year [...] more in his throat. Seeing neurology at [facility] for his intermittent aphasia. Still awaiting manometry results. * 09/04/22: * Here for follow-up. Esophagram completed 08/10/22 with moderate hiatal hernia, possible inflammatorynarrowing at GEJ, also area of mucosal irregularity for which endoscopy was recommended. He had manometry placed under endoscopy on 08/30/22, overall esophagus appeared normal on their exam with apgiy6bw nodule at GEJ that was biopsied. Pathology [...] esophagus and pill sticking in the vallecula SV-Pmhnxqsywlkwed-Enjsafm Work Phone: 1(156) 468-224505-16-2023 History of Present illness Narrative* 67 year [...] esophagus appeared normal on their exam with tmgyi8lu nodule at GEJ that was biopsied. Pathology [...] stasis and intraesophageal regurgitation. 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 * MBS September 2019 - reduced base of tongue retraction, poor pharyngeal wall squeeze, poor relaxation ofUES, no change with head turn or chin tuck * esophagram 2018 - slow clearing of the distal esophagus and pill sticking in the vallecula [facility]cfyaqrm[facility]xbhks[facility]els[facility] Work Phone: 1(508) 422-228505-16-2023 Chief complaint Narrative - Reported* An interactive audio and video telecommunication system which permits real time communications between the patient (at the originating site) and provider (at the distant site) was utilized to providethis telehealth service. * Verbal consent was requested and obtained from YOLI ANTUNEZ on this date, 09/04/2022 11:30 AM, for a telehealth visit. * Dysphagia follow-up AW-Tngsidlpuunsuj-Nxnqein Work Phone: 1([phone]) 338-516305-11-2023 NotePatient Name: Yoli Antunez Procedure Date: 08/30/2022 7:32 AM Date of : 1955 Admit Type: Outpatient Site: [place] Procedure Room 5 Ethnicity: Not or Race: White Attending MD: ELISEO Williamson, [id number] Procedure: Upper GI endoscopy Indications: Dysphagia for 5 years to both liquids and solids Patient Profile: This is a 67 year old male. Refer to note in patient chart for documentation of history and physical. Providers: ELISEO Williamson (Doctor), Jaylen Lo RN (Nurse), Florentino De Dios, Fur Buyer, Kristin Mcdaniels RN (Nurse) Referring: Radha Burris [...] specimen was done by the nurse and oral surgery technician using the patient's name and medical record number. Estimated blood loss was minimal. A single 3 mm nodule was found at the gastroesophageal junction, 39 cm from the incisors. Biopsies were taken with a cold forceps for histology. Verification of patient identification for the specimen was done by the nurse and oral surgery technician using the patient's name and medical [...] and technici (more content not included)...PROVATION - [id number] Reason for visit Narrative* An interactive audio and video telecommunication system which permits real time communications between the patient (at the originating site) and provider (at the distant site) was utilized to providethis telehealth service. * Verbal consent was requested and obtained from YOLI ANTUNEZ on this date, 08/13/2022 03:15 PM, for a telehealth visit. [facility] [address] [place] Work Phone: 1([phone]) [phone] Chief complaint Narrative - Reported* An interactive audio and video telecommunication system which permits real time communications between the patient (at the originating site) and provider (at the distant site) was utilized to providethis telehealth service. * Verbal consent was requested and obtained from YOLI ANTUNEZ on this date, 07/31/2022 12:30 PM, for a telehealth visit. * [place] DO-Sngnymjnidqpgg-Njvcegn Work Phone: [phone]) [phone] History of Present illness Narrative* 67 year [...] esophagus and pill sticking in the vallecula MK-Yaxbdfxmlxwanh-Mnsraed Work Phone: [phone] Miscellaneous Notes* Telephone Encounter - Jonathan Pascual - 07/30/2022 3:40 PM EDT Received call from patient regarding Message Per Patient Local ERs do not understand patients symptoms, would like to know if he can receive response from provider urgently * Telephone Encounter - Jessica Mccoy Pss - 07/30/2022 3:13 PM EDT Patient last seen 05/31/2022, but had infusions 07/26/2022. documented in this encounterLicking Memorial Hospital04-06-2023 History of Present illness Narrative* Eleonora Cabral RN - 07/26/2022 1:52 PM EDT 13:35 Patient admitted to infusion unit and history reviewed, medications and allergies updated. Patient has 3/10 headache and no nausea, no dizziness at this time. Patient has first Vyepti infusion of 100 mg. 1424 Patinet discharged no problems with infusion , instructed on 45 day follow-up. documented in this encounterLicking Memorial Hospital04-03-2023 Miscellaneous Notes* Telephone Encounter - Fadumo Mckenzie - 07/23/2022 11:46 AM EDT Patient last seen on 05/31/22. Asked to follow up with Infusions. documented in this encounterLicking Memorial Hospital03-24-2023 Miscellaneous Notes* Telephone Encounter - Kassie Richardson APRN.CNP - 07/13/2022 4:04 PM EDT There are no results in [facility] from [facility] in imaging. When did he have them done? Can they fax the results and send the disc. Kassie documented in this encounterLicking Memorial Hospital02-13-2023 Miscellaneous Notes* Telephone Encounter - Kassie Richardson APRN.CNP - 06/04/2022 12:48 PM EST Orders for MRA/MRV to be mailed to patient. Kassie Richardson APRN.CNP documented in this encounterLicking Memorial Hospital02-09-2023 Instructions* Patient Instructions* Kassie Richardson APRN.CNP - 05/31/2022 9:01 AM EST Greater Occipital Nerve Block Article in [place] [employer] Journal By: Bhavesh Boyd MD [...] give it at least one more try. https://americanheadachesociety.org/wp-content/uploads//Jczdzkrfu-Gfnut-J locks_Aug-2009.pdf documented in this encounterLicking Memorial Hospital02-09-2023 History of Present illness Narrative* Kassie Richardson APRN.CNP - 05/31/2022 8:00 AM EST [facility] Follow up visit May 31, 2022 [...] unrevealing and negative. I sent patient a [employer] message with this information and we can try [facility] to see if this is migrainous [...] other than aphasia. He was seen at [facility] for this previously (2020 note, migraine), and follows w/ Neurologist Dr. Wolff in [place]. 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) Arthritis Atrial fibrillation/flutter CAD (coronary artery disease) CKD (chronic kidney disease) stage 3, GFR 30-59 ml/min ([facility]) Ex-smoker Gastric ulcer GERD (gastroesophageal reflux [...] osteopenia, and partially imaged atlantoaxial arthritic changes. Recovery Unit Operator (topogram) images: No additional findings. 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 Short and prison memory, cognition and general fund of knowledge [...] Plan of Care Visit completed when applicable. Kassie Richardson APRN.FUEL TECHNICIAN The risks, benefits and anticipated outcomes of [...] which included preparing to see the patient, mqmf-tq-veli patient care, completing clinical documentation, obtaining and/or reviewing separately obtained history, performing a medically appropriate examination, counseling and educating the patient/family/caregiver, and ordering medications, tests, or procedures. Kassie Richardson APRN.NEETU Headache Section [facility] May 31, 2022 documented in this encounterLicking Memorial Hospital09-16-2022 History of Present illness Narrative* Dominique Atkins - 01/05/2022 4:23 PM EDT CLINICAL PHARMACY NOTE: MEDS TO BEDS Total # of Prescriptions Filled: 4 The following medications were delivered to the patient: Ciprofloxacin 500mg Metronidazole 500mg Ondansetron 4mg Percocet 5-325mg Additional Documentation: delivered to patient in room 318 01/05 at 4:12pm. Co- pay paid with [employer]. 1visitor at time of delivery. * Elio [...] discharge. Tad Corea MD Internal medicine, PGY-2 [facility], [facility] @TODAY@ 10:53 AM Attending [...] MD Nephrology Attending Physician [facility] 01/05/2022 * Dariela Walker MD - 01/05/2022 10:40 AM EDT Images from the original note were not included. [facility] Office: [phone] Mehdi Mcallister DO, Meliton Willard DO, Vicente Herrera DO, Johnson Roque DO, Mickie Machado MD, Joie Carbajal MD, Nunu Klein MD, Kate Chester MD, Mariano Diego MD, aCl Sanchez MD, Darren Waldrop DO, Erika Aldridge MD, Carlitos Abel DO, Lorenzo Wagner MD, Brian Swenson MD, Osmel Mcallister DO, Darline Walden MD, John Saul MD, Zuleyka Negro MD, Keiry Jones MD, Shefali Mcdonnell MD, Dariela Walker MD, Shashi Kiser DO, Cornelia George MD, Octaviano Bolden MD, Julia Vasquez, FUEL TECHNICIAN, Joanne Hameed, FUEL TECHNICIAN, Jazmine Huitron, FUEL TECHNICIAN, Tono Braun, FUEL TECHNICIAN, Annie Quijano, DNP, Brunilda Fuller, FUEL TECHNICIAN, Andria Rutherford, FUEL TECHNICIAN, Akila Franks, FUEL TECHNICIAN, Shivani Rascon, FUEL TECHNICIAN, Mayte Martinez, FUEL TECHNICIAN, Aliya Reyes PA-C, Esha Kumari, BEAM SAW OPERATOR, Monica Levy, DNP, Marifer Dunne, FUEL TECHNICIAN, Rosie Longoria, FUEL TECHNICIAN, Nohelia Morris, FUEL TECHNICIAN [facility] Progress Note Name: Yoli Antunez Acct: [id number] Room: 0318/0318-01 Day: 5 Admit Date: 12/31/2021 11:15 PM [...] improved to 2.5, bicarb 25 Brief History: 89-jffl-wcy-year-old with prior history of CKD 3, hypertension, prior TIA, paroxysmal A. fib, aortic root aneurysm presented with right lower quadrant and flank pain, initially started on 12/28/2021 when he was evaluated at [facility]. Imaging suggested possible epiploic appendicitis versus [...] type 12/31/2021 Yes EMELIA (acute kidney injury) ([facility]) 01/01/2022 Yes CKD (chronic kidney disease) stage 3, GFR 30-59 ml/min ([facility]) 01/01/2022 Yes Non-intractable vomiting with nausea 01/01/2022 Yes Jaundice 01/01/2022 Yes Lactic acid acidosis 01/01/2022 Yes Hyperglycemia 01/01/2022 Yes Paroxysmal A-fib ([facility]) 01/01/2022 Yes History of TIA (transient ischemic attack) 01/01/2022 Yes Apnea 01/01/2022 Yes History of kidney stones 01/01/2022 Yes Metabolic acidosis 01/03/2022 Yes History of peptic ulcer 01/01/2022 Yes Overview Signed 01/01/2022 2:21 AM by Darline Walden MD S/p egd [facility] 08/2020 Plan: S/p cholecystectomy day3 -Continue [...] -- Last 3 CBC: Recent Labs 01/02/22 0522 01/03/22 0547 01/04/22 [...] corrected by editing Spencer Grijalva MD MD, [facility] (), FACP 01/04/2022 1:31 PM [facility] * Dariela Walker MD - 01/04/2022 10:45 AM EDT Images from the original note were not included. [facility] Office: [phone] Mehdi Mcallister DO, Meliton Willard DO, Vicente [...] George MD, Octaviano Bolden MD, Julia Vasquez, FUEL TECHNICIAN, Joanne Hameed, FUEL TECHNICIAN, Jazmine Huitron, FUEL TECHNICIAN, Tono Braun, FUEL TECHNICIAN, Annie Quijano, DNP, Brunilda Fuller, FUEL TECHNICIAN, Andria Rutherford, FUEL TECHNICIAN, Akila Franks, FUEL TECHNICIAN, Shivani Rascon, FUEL TECHNICIAN, Mayte Martinez, FUEL TECHNICIAN, Aliya Reyes, PA-C, Esha Kumari, BEAM SAW OPERATOR, Monica Levy, DNP, Marifer Dunne, FUEL TECHNICIAN, Rosie StemNEETU plaza Janice Calfee, CNP [facility] Progress Note Name: Yoli Antunez Acct: [id number] Room: 0318/0318-01 Day: 4 Admit Date: 12/31/2021 11:15 PM PCP: Radha Price MD Code Status: Full Code Subjective: C/C: nausea,vomiting, fevers Interval History Status: improved. Patient indicates doing well no nausea vomiting. Continues to have left upper quadrant pain intermittently. No flatus or bowel movement yet . hemodynamically stable. Creatinine improved to 3.07 WBC 12.2 Brief History: 60-egpb-mqv-year-old with prior history of CKD 3, hypertension, prior TIA, paroxysmal A. fib, aortic root aneurysm presented with right lower quadrant and flank pain, initially started on 12/28/2021 when he was evaluated at [facility]. Imaging suggested possible epiploic appendicitis versus [...] type 12/31/2021 Yes EMELIA (acute kidney injury) ([facility]) 01/01/2022 Yes CKD (chronic kidney disease) [...] by Darline Walden MD S/[facility] Plan: S/p cholecystectomy day2 -Continue [...] Progress Note PATIENT: YOLI ANTUNEZ CSN #: [id number] : 1955 ADMIT DATE: 12/31/2021 11:15 PM [...] RN CDS. Please call/text/PS with any questions; [phone]. Options provided: -- Sepsis, present on admission [...] MD 01/03/2022 4:35 PM * Janet Ford, PAPERHANGER - FUEL TECHNICIAN - 01/03/2022 2:02 PM EDT [facility] Yoli Antunez is a [...] results for input(s): LABIRON, TIBC, IRON, FERRITIN, [id number], FOLATE, OCCULTBLD in the last 72 hours. [...] the care of your patient. Janet Ford, PAPERHANGER - [place], [place] Please note that this note was generated using a voice recognition dictation software. Although every effort was made to ensure the accuracy of this automated it systems analyst consultant, some errors in it systems analyst consultant may have occurred. Associated attestation - [...] and primary team. Juan David Marr MD [facility] [place], [place] * Dariela Walker MD - 01/03/2022 9:30 AM EDT Images from the original note were not included. [facility] Office: [phone] Mehdi Mcallister DO, Meliton Willard DO, Vicente [...] Braun, NEETU, Annie Quijano, KENYA, Brunilda Fuller, FUEL TECHNICIAN, Andria Rutherford, FUEL TECHNICIAN, Akila Franks, FUEL TECHNICIAN, Shivani Rascon, FUEL TECHNICIAN, Mayte Martinez CNP, Aliya Reyes PA-C, Esha Kumari, BEAM SAW OPERATOR, Monica Levy, DNP, Marifer Dunne, FUEL TECHNICIAN, Rosie Longoria, FUEL TECHNICIAN, Nohelia Morris, FUEL TECHNICIAN [facility] Progress Note Name: Yoli Antunez Acct: [id number] Room: [address] [place] [address] Day: 3 Admit Date: 12/31/2021 11:15 PM [...] improved, lipase improved to 250 Brief History: 73-ihfh-wyk-year-old with prior history of CKD 3, hypertension, prior TIA, paroxysmal A. fib, aortic root aneurysm presented with right lower quadrant and flank pain, initially started on 12/28/2021 when he was evaluated at [facility]. Imaging suggested possible epiploic appendicitis versus [...] -- -- -- -- -- ANIONGAP 14 03 04 -- -- 16 LABGLOM 16* 16* 16* -- -- [...] results found for: POCPH, PHART, PH, POCPCO2, FEJ2BKF, PCO2, POCPO2, PO2ART, PO2, POCHCO3, LHW7OQI, HCO3, NBEA, PBEA, BEART, BE, THGBART, THB, CCL6XYO, HNPN9LKI, R6VNXVPD, O2SAT, FIO2 Lab Results Component Value Date/Time [...] by Darline Walden MD S/[facility] egd [facility] Plan: S/p cholecystectomy day1 -Was [...] PLT 157 150 170 BMP: Recent Labs 01/01/2272601/02/2252101/02/22 1716 NA 138 141 142 K 4.4 4.6 5.0 CL 107 109* 108* CO2 19* 18* 20 BUN 59* 63* 55* CREATININE 3.74* 4.02* 3.51* GLUCOSE 109* 106* 122* COAGS: Recent Labs 01/01/22 0546 01/01/2272601/02/2252101/03/22 0547 PROT 5.5* 5.8* 6.1* PENDING INR [...] DC planning. Kee Stevens MD * Prince hTakkar MD - 01/02/2022 5:24 PM EDT Images [...] from the original note were not included. [facility] Office: [phone] Mehdi Mcallister DO, Meliton Willard DO, Vicente [...] Vasquez CNP, Joanne Hameed CNP, Jazmine Huitron, FUEL TECHNICIAN, Tono Braun, FUEL TECHNICIAN, Annie Quijano, KENYA, Brunilda Fuller, FUEL TECHNICIAN, Andria Rutherford, FUEL TECHNICIAN, Akila Franks, FUEL TECHNICIAN, Shivani Rascon, FUEL TECHNICIAN, Mayte Martinez FUEL TECHNICIAN, BLANCHE Nelson-Leatha, Esha Kumari, BEAM SAW OPERATOR, Monica Levy, DNP, Marifer Dunne, FUEL TECHNICIAN, Rosie Longoria, FUEL TECHNICIAN, Nohelia Morris, FUEL TECHNICIAN [facility] Progress Note Name: Yoli Antunez Acct: [id number] Room: 0318/0318-01 Day: 2 Admit Date: 12/31/2021 [...] showed no hydronephrosis. Hemodynamically stable Brief History: 89-jsnz-yci-year-old with prior history of CKD 3, hypertension, prior TIA, paroxysmal A. fib, aortic root aneurysm presented with right lower quadrant and flank pain, initially started on 12/28/2021 when he was evaluated at [facility]. Imaging suggested possible epiploic appendicitis versus [...] Hold] ondansetron, [JUN Hold] sodium chloride flush, [MAR Hold] sodium [...] Chemistry: Recent Labs 01/01/22 0326 01/01/22 0546 01/01/2272601/01/22 1017 01/01/22 1207 01/02/22 05 NA 139 [...] results found for: POCPH, PHART, PH, POCPCO2, [id number], PCO2, POCPO2, PO2ART, PO2, POCHCO3, RFI1FJE, HCO3, NBEA, PBEA, BEART, BE, THGBART, THB, QDE0OEL, JKBA0HEB, O3SZYVNH, O2SAT, FIO2 Lab Results Component Value Date/Time [...] type 12/31/2021 Yes EMELIA (acute kidney injury) ([facility]) 01/01/2022 Yes CKD (chronic kidney disease) stage 3, GFR 30-59 ml/min ([facility]) 01/01/2022 Yes Non-intractable vomiting with nausea 01/01/2022 Yes Jaundice 01/01/2022 Yes Lactic acid acidosis 01/01/2022 Yes Hyperglycemia 01/01/2022 Yes Paroxysmal A-fib ([facility]) 01/01/2022 Yes History of TIA (transient ischemic attack) 01/01/2022 Yes Apnea 01/01/2022 Yes History of kidney stones 01/01/2022 Yes History of peptic ulcer 01/01/2022 Yes Overview Signed 01/01/2022 2:21 AM by Darline Walden MD S/p egd [facility]/2020 Plan: S/p cholecystectomy day0 - [...] Islas MD - 01/02/2022 9:29 AM EDT [facility] Progress Note Yoli Antunez is a [...] results for input(s): LABIRON, TIBC, IRON, FERRITIN, BNAHWMER44, FOLATE, OCCULTBLD in the last 72 hours. [...] 3.2* 3.0* 3.2* 2.9* AMYLASE/LIPASE/AMMONIA Recent Labs 01/01/2254501/02/22521 LIPASE 1,918* 1,280* Acute Hepatitis Panel No [...] from 01/01/2022 HISTORY: ORDERING SYSTEM PROVIDED HISTORY: EMLEIA on CKD TECHNOLOGIST PROVIDED HISTORY: EMELIA on [...] Rachel Islas MD Internal medicine resident, PGY1 [place], [place] Please note that this note was generated using a voice recognition dictation software. Although every effort was made to ensure the accuracy of this automated it systems analyst consultant, some errors in it systems analyst consultant may have occurred. Associated attestation - Juan David Marr MD - 01/04/2022 8:33 PM EDT Attending Physician Statement I have discussed the care of Yoli Antunez, including pertinent history and exam findings, andformulating the plan of care with the resident. I have seen and examined the patient and the muaña elements of all parts of the encounter [...] confirmed. Leonel Matos MD * Sara Villalobos [facility] - 01/01/2022 10:23 AM EDT Pharmacy Note [...] original note were not included. Occupational Therapy [facility] Occupational Therapy Not Seen Note [...] - 01/01/2022 8:52 AM EDT Talked to [facility] cardiac and they said his loop recorder was put in November 09 and it is a [employer] device model m301 LUX-DX. MRI notified. [facility] Work Phone: 1(276) 280-737109-16-2022 Hospital course Narrative* Dariela Walker MD - 01/05/2022 2:37 PM EDT Images from the original note were not included. [facility] Office: [phone] Mehdi Mcallister DO, Meliton Willard DO, Vicente [...] Julia Vasquez, NEETU, Joanne Hameed CNP, Jazmine Huitron CNP, Tono Braun CNP, Annie Quijano, KENYA, Brunilda Fuller, FUEL TECHNICIAN, Andria Rutherford, FUEL TECHNICIAN, Akila Franks, FUEL TECHNICIAN, Shivani Rascon, FUEL TECHNICIAN, Mayte Martinez, FUEL TECHNICIAN, BLANCHE Nelson-Leatha, Esha Kumari, BEAM SAW OPERATOR, Monica Levy, KENYA, Marifer Dunne, FUEL TECHNICIAN, Rosie Longoria, FUEL TECHNICIAN, Nohelia Morris, FUEL TECHNICIAN [facility] Discharge Summary Patient ID: Yoli Antunez : 1955 ACCOUNT: [id number] Patient's PCP: Radha Price MD Admit Date: [...] Discharged Condition: good Hospital Stay: Hospital Course: 7-atdq[age]imf-year-old with prior history of CKD 3, hypertension, prior TIA, paroxysmal A. fib, aortic root aneurysm presented with right lower quadrant and flank pain, initially started on 12/28/2021 when he was evaluated at [facility]. Imaging suggested possible epiploic appendicitis versus [...] Discharge plan: Disposition: Home Physician Follow Up: [facility] [address] [facility] [phone] Schedule an appointment as soon as possible for a visit on 01/16/2022 For wound re-check post op from your Lap Ivy Campos MD [address] [facility] [address] [facility] [address] Follow up in 1 month(s) Diet: regular [...] Your Medications These medications were sent to [place], [place] - [address] [facility] - P [phone] - F [phone] [place] [address] ciprofloxacin 500 MG tablet dilTIAZem 120 MG [...] in this patient'scare. documented in this encounterBON [facility] Phone: 1(477) 966-667809-14-2022 Hospital Discharge instructions* Discharge Instructions* Sudheer Foote [...] be called to the nurse line at [phone] and please leave a message. * Attachments The following attachments cannot be sent through Care Everywhere. * Pancreatitis: Acute: General Info (Mauritanian) documented in this encounterB[facility] [employer] Work Phone: [phone]) 290-663907-28-2022 NotePROCEDURE: XR FOOT LT MIN 3 VIEWS [...] Electronically authenticated by: DONNELL DU Date: 2021-11-16 08:26[facility] Evaluation note* Encounter Date Diagnosis Assessment [...] to call the office if symptoms return [facility] Other 05-11-2022 Evaluation note* Encounter Date Diagnosis [...] - G89.29) Continue with current treatment plan [facility] Other 04-14-2022 Evaluation note* Encounter Date Diagnosis [...] - G89.29) Continue with current treatment plan [facility] Other 01-10-2022 History of Present illness Narrative* [...] 01, 2021 8:21 AM [facility] of Present illness Narrative* Dysphagia [...] for complaint except as noted in HPI. [place] Work Phone: 1(853) 502-536506-01-2020 History of Present illness Narrative* Dysphagia with [...] his care over the past two years / to cardiac arrhythmia issues - afib, has [...] for complaint except as noted in HPI. [facility] Work Phone: 1(822) 728-561206-01-2020 History of Present illness Narrative* 67 year [...] for complaint except as noted in HPI. [facility] Work Phone: 1(897) 473-652206-01-2020 History of Present illness Narrative* Dysphagia with [...] for complaint except as noted in HPI. [facility] [address] Work Phone: 1([phone]) 142-316501-30-2019 History and physical note Author Charlene Soria [facility] April 16, 2023 10:45am Note Date/Time April 16, 2023 10:45am [facility] [address] [place] [address] Gastroenterology H&P Signed Patient: Yoli Antunez Jr MR#: [id number] : 1955 Acct:[id number] Age/Sex: 67 / M Adm Date: 3 Loc: Room: Type: [facility] Attending Dr: Charlene Soria MD Copies [...] signed by Charlene Soria MD> 04/16/23 1045 [facility] Work Phone: Consult note* Clinical Note Date No Information [facility] Work Phone: Discharge summary* Clinical Note Date No Information [facility] Work Phone: Evaluation + Plan note Future Appointments Appointment Date:10/07/2024 01:30:00 PM Scheduled Provider: Location:[facility] Appointment Type:Surgery [facility] Evaluation noteNo [employer] Other Evaluation note* Diagnosis Gall stone pancreatitis- [...] acidosis Acidosis documented in this encounter [facility] Work Phone: evaluation note* Diagnosis Chronic migraine without aura, intractable, without status migrainosus- Primary Aphasia Other specified transient cerebral ischemias [facility] Diagnosis Chronic migraine without aura, with intractable migraine, so stated, with status migrainosus- Primary [facility] Diagnosis Chronic migraine without aura, with intractable migraine, so stated, with status migrainosus- Primary documented in this encounter [facility] note* Diagnosis Autonomic dysfunction- Primary Unspecified disorder of autonomic nervous system Dizzy spells Dizziness and giddiness documented in this encounter [facility] note* Diagnosis Diarrhea, unspecified type- Primary Left lower quadrant abdominal pain documented in this encounter [facility] Work Phone: Evaluation note* Diagnosis Disturbance of skin sensation- Primary documented in this encounter [facility] note* Diagnosis Left lower quadrant abdominal pain documented in this encounter [facility] Work Phone: Evaluation note* Diagnosis [...] Obstructive sleep apnea (adult) (pediatric) 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, unspecified 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 of antithrombotics/antiplatelets senior living (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 of aspirin Personal history of transient ischemic attack (TIA), and cerebral infarction without residual deficits Personal history of nicotine dependence Allergy status to penicillin documented in this encounter [facility] Work Phone: Evaluation note* Diagnosis [...] joint, bilateral Personal history of nicotine dependence senior living (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 of aspirin Allergy status to penicillin Allergy status to other antibiotic agents documented in this encounter [facility] Work Phone: Evaluation noteNo assessment information available [facility] Work Phone: Evaluation note* Diagnosis Orthostatic hypotension- Primary [place]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) [facility] Diagnosis Shortness of breath [facility] Type Assessment Date No Information [facility] Work Phone: Evaluation note* Diagnosis Anxiety- Primary Anxiety state, unspecified Dermatitis Contact dermatitis and other eczema, due to unspecified cause Paroxysmal atrial fibrillation (CMS/HCC) Atrial fibrillation documented in this encounter [facility]* Diagnosis Anxiety- Primary Anxiety state, unspecified Dermatitis Contact dermatitis and other eczema, due to unspecified cause Paroxysmal atrial fibrillation (CMS/HCC) Atrial fibrillation Other thrombophilia (CMS/HCC) Postprocedural hypoparathyroidism (CMS/HCC) Acquired hypothyroidism (CMS/HCC) Unspecified hypothyroidism documented in this encounter [facility] HealthcareEvaluation note* Diagnosis Anxiety- Primary Anxiety state, unspecified Dermatitis Contact dermatitis and other eczema, due to unspecified cause Paroxysmal atrial fibrillation (CMS/HCC) Atrial fibrillation Other thrombophilia (CMS/HCC) Postprocedural hypoparathyroidism (CMS/HCC) Arteriosclerosis of coronary artery (CMS/HCC)- Primary Atypical angina (CMS/HCC) Other and unspecified angina pectoris documented in this encounter [facility] HealthcareEvaluation note* Diagnosis Anxiety- Primary Anxiety state, unspecified Dermatitis Contact dermatitis and other eczema, due to unspecified cause Paroxysmal atrial fibrillation (CMS/HCC) Atrial fibrillation Other thrombophilia (CMS/HCC) Postprocedural hypoparathyroidism (CMS/HCC) Dermatitis- Primary Contact dermatitis and other eczema, due to unspecified cause documented [facility] encounter [facility]* Diagnosis Diarrhea, unspecified type- Primary Autonomic dysfunction Angina at rest (CMS/HCC) Other and unspecified angina pectoris documented [facility] encounter [facility]* Diagnosis Dermatitis- Primary Contact dermatitis and other eczema, due to unspecified cause Chronic kidney disease, stage 3a (HCC) (CMS/HCC) Atherosclerosis of aorta (CMS/HCC) Atherosclerosis of aorta Thoracic aortic ectasia (CMS/HCC) Thoracic aortic ectasia documented [facility]* Diagnosis Irritant contact dermatitis due to other agents- Primary documented in this encounter [facility]* Diagnosis Anxiety- Primary Anxiety state, unspecified Dermatitis Contact dermatitis and other eczema, due to unspecified cause Paroxysmal atrial fibrillation (CMS/HCC) Atrial fibrillation Other thrombophilia (CMS/HCC) Postprocedural hypoparathyroidism ([facility]/HCC) Restless leg- Primary Restless legs syndrome (RLS) documented in this encounter [facility]* Diagnosis Anxiety- Primary Anxiety state, unspecified Dermatitis Contact dermatitis and other eczema, due to unspecified cause Paroxysmal atrial fibrillation (CMS/HCC) Atrial fibrillation Other thrombophilia (CMS/HCC) Postprocedural hypoparathyroidism ([facility]/HCC) Acquired hypothyroidism ([facility]) Unspecified hypothyroidism documented [facility] encounter [facility]* Diagnosis Anxiety- Primary Anxiety state, unspecified Dermatitis Contact dermatitis and other eczema, due to unspecified cause Paroxysmal atrial fibrillation (CMS/HCC) Atrial fibrillation Other thrombophilia (CMS/HCC) Postprocedural hypoparathyroidism ([facility]/HCC) Ptosis of both eyelids- Primary Unspecified ptosis of eyelid documented [facility] encounter [facility]* Diagnosis Anxiety- Primary Anxiety state, unspecified Dermatitis Contact dermatitis and other eczema, due to unspecified cause Paroxysmal atrial fibrillation (CMS/HCC) Atrial fibrillation Other thrombophilia (CMS/HCC) Postprocedural hypoparathyroidism ([facility]/HCC) Restless legs syndrome- Primary Restless legs syndrome (RLS) POTS (postural orthostatic tachycardia syndrome) Unspecified tachycardia Aneurysm of ascending aorta without rupture ([facility]) Coronary artery disease involving [place] heart, unspecified vessel or lesion type, unspecified whether angina present ([facility]/HCC) Paroxysmal atrial fibrillation ([facility]/HCC) Atrial fibrillation Essential hypertension ([facility]) Unspecified essential hypertension Presence of Watchman left atrial appendage closure device Transient ischemic attack Unspecified transient cerebral ischemia Gastroesophageal reflux disease without esophagitis Esophageal reflux Benign prostatic hyperplasia with urinary obstruction Stage 3a chronic kidney disease (HCC) (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) Vitamin D deficiency Chronic migraine without aura, with intractable migraine, so stated, with status migrainosus ([facility] [facility]/HCC) Chronic migraine without aura, with intractable migraine, so stated, with status migrainosus Meniere's disease, unspecified laterality Acquired ptosis of right eyelid Acquired hypothyroidism (CMS/HCC) Unspecified hypothyroidism History of smoking Personal history of tobacco use, presenting hazards to health Bronchiectasis, uncomplicated (CMS/HCC) 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) ADA (obstructive sleep apnea) Obstructive sleep apnea [...] (CMS/HCC) Stage 3a chronic kidney disease (HCC) (CMS/[facility]) documented in this encounter [facility] [...] Dental infection documented in this encounter [facility]* Diagnosis Anxiety- Primary Anxiety state, unspecified Dermatitis Contact dermatitis and other eczema, due to unspecified cause Paroxysmal atrial fibrillation (CMS/HCC) Atrial fibrillation Other thrombophilia Postprocedural hypoparathyroidism (CMS/HCC) Acute non-recurrent maxillary sinusitis- Primary documented in this encounter [facility] Diagnosis Anxiety- Primary Anxiety state, unspecified Dermatitis Contact dermatitis and other eczema, due to unspecified cause Paroxysmal atrial fibrillation (CMS/HCC) Atrial fibrillation Other thrombophilia Postprocedural hypoparathyroidism (CMS/HCC) Nasal septal deviation- Primary Deviated nasal septum Acute non-recurrent maxillary sinusitis Abnormal CT scan, sinus OAF (sonny-antral fistula) Chronic maxillary sinusitis documented in this encounter [facility] Diagnosis Anxiety- Primary Anxiety state, unspecified Dermatitis Contact dermatitis and other eczema, due to unspecified cause Paroxysmal atrial fibrillation (CMS/HCC) Atrial fibrillation Other thrombophilia Postprocedural hypoparathyroidism (CMS/HCC) Nasal septal deviation- Primary Deviated nasal septum Acute non-recurrent maxillary sinusitis OAF (sonny-antral fistula) Chronic maxillary sinusitis documented in this encounter [facility] Diagnosis Anxiety- Primary Anxiety state, unspecified Dermatitis Contact dermatitis and other eczema, due to unspecified cause Paroxysmal atrial fibrillation (HCC) Atrial fibrillation Other thrombophilia (HHS-HCC) Postprocedural hypoparathyroidism (HCC) Nasal septal deviation- Primary Deviated nasal septum Chronic maxillary sinusitis documented in this encounter [facility] Diagnosis Anxiety- Primary Anxiety state, unspecified Dermatitis Contact dermatitis and other eczema, due to unspecified cause Paroxysmal atrial fibrillation (HCC) Atrial fibrillation Other thrombophilia (HHS-HCC) Postprocedural hypoparathyroidism (HCC) Nasal septal deviation- Primary Deviated nasal septum Chronic maxillary sinusitis OAF (sonny-antral fistula) Chronic maxillary sinusitis documented in this encounter [facility]* Diagnosis Orthostatic lightheadedness- Primary Dizziness and giddiness Ptosis of right eyelid Unspecified ptosis of eyelid Hoarseness of voice Dysphonia Disturbance of skin sensation Abnormality of gait and mobility Abnormality of gait Falls frequently Personal history of fall Orthostatic hypotension Voice disturbance Voice and resonance disorder, unspecified [facility] Ptosis of right eyelid- Primary Unspecified ptosis of eyelid Hoarseness of voice Dysphonia [facility] Clinical Note Date No Information [facility] Work Phone: Hissalu general Narrative - Reported* Type Description Date [...] Hospitalization History see above Hospitalization History cardiac [facility] Other History of Present illness Narrative* Patient [...] and contact clinician with any concerns. [facility] [address] [place] Work Phone: History of Present illness Narrative* Mr. ANTUNEZ , 1955, referred for an initial consultation with me but established with this practice, with a long history of waking up feeling unrefreshed, excessive daytime fatigue. * [place] Sleepiness Scale Score is 16 /24. Fatigue [...] / 20 * Nasal Obstruction VAS- 0/10 [id number] Work Phone: Hospital course Narrative No data available for this section [facility] Hospital Discharge instructions Additional Instructions DISCHARGE INSTRUCTIONS [...] NOT operate machinery such as power tools, [employer] mowers, [employer] blowers, sewing machines, etc. for 24 hours. [...] -Follow up pathology -Follow up in the [facility] Work Phone: Hospital Discharge instructions No data available for this section [facility] Instructions* Date Instruction Additional Infor darrin No Information [facility] Work Phone: Progress note* Clinical Note Date No Information [facility] Work Phone: Progress note No data available for this section [facility] Reason for referral (narrative)* Reason For Referral No Information [facility] Work Phone: Reason for referral (narrative)* Consultation (Routine) - Authorized Specialty Diagnoses / Procedures Referred By Yeny thurston Referred To Contact Gastroenterology Diagnoses Diarrhea, unspecified type Procedures AL OFFICE/OUTPATIENT [facility] 60 MINUTES Radha Burris MD [address] [place] [address] Michelle Gilmore MD [address] [place] [address] Referral ID Status Reason Start Date Expiration Date Visits Requested Visits Authorized [id number] Authorized Specialty Services Required 12/24/2023 06/21/2024 1 1 [facility] N[facility]* Consultation (Routine) - Closed Specialty Diagnoses / Procedures Referred By Yeny thurston Referred To Contact Neurology Diagnoses Acquired ptosis of right eyelid Procedures AL OFFICE/OUTPATIENT [facility] 60 MINUTES Eleonora Leo NP [address] [place] [address] Phone: tel: fax: Ranjana Mack DO [address] [place] [address] Phone: tel: fax: Referral ID Status Reason Start Date Expiration Date V isits Requested Visits Authorized [id number] Closed Consult and Treat 06/09/2024 12/06/2024 1 1 [facility] Summary Purpose Family History No Family History [...] FoundDocuments on File Type Date Recorded 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 ACP-Advance Directive ACP-Power of Personal Care Worker Latest Code Status on File Code Status [...] Information History of Present Illness * Keyonna Freitas, RN - 03/11/2020 3:00 PM EST Pt [...] CHEST Cameron Harmon MD [address] [place] [address] [place] [address] Referral ID Status Reason Start Date Expiration Date V isits Requested Visits Authorized [id number] Closed Auto-Generate d Referral 04/05/2021 05/05/2022 1 1 Specialty Diagnoses / Procedures Referred By Contac t Referred To Contact Radiology Diagnoses Left lower quadrant abdominal pain Procedures CT abdomen pelvis w IV contrast Yossi Chen MD [address] [facility] [address], [address] [place] [address] Referral ID Status Reason Start Date Expiration Date Visits Requested Visits Authorized [id number] Authorized Perform Procedure 3 07/30/2023 1 1 Specialty Diagnoses / Procedures Referred By Contac t Referred To Contact Neurology Diagnoses Autonomic dysfunction Dizzy spells Procedures CONSULT TO NEUROLOGY OFFICE/OUTPATIENT [facility] 60-74 MINUTES Kassie Richardson, PAPERHANGER.FUEL TECHNICIAN [address] [place] [address] Referral ID Status Reason Start Date Expiration Date Visits Requested Visits Authorized [id number] Authorized PCP Requested Referral 12/31/2022 12/31/2023 1 1 Specialty Diagnoses / Procedures Referred By Contac t Referred To Contact MR IMAGING Diagnoses Chronic migraine without aura, intractable, without status migrainosus Aphasia Other specified transient cerebral ischemias Procedures MRV BRAIN WO IVCON MRA, HEAD W/O CONTRAST Kassie Richardson, PAPERHANGER.FUEL TECHNICIAN [address] [place] [address] Mr Imaging Referral ID Status Reason Start Date Expiration Date Visits Requested Visits Authorized [id number] Pending Review Auto-Generat ed Referral 05/31/2022 06/30/2023 1 1 Specialty Diagnoses / Procedures Referred By Yeny thurston Referred To Contact MR IMAGING Diagnoses Chronic migraine without aura, intractable, without status migrainosus Aphasia Other specified transient cerebral ischemias Procedures MRA BRAIN WO IVCON MRA, HEAD W/O CONTRAST Kassie Richardson, PAPERHANGER.FUEL TECHNICIAN [address] [place] [address] Mr Imaging Referral ID Status Reason Start Date Expiration Date Visits Requested Visits Authorized [id number] Pending Review Auto-Generat ed Referral 05/31/2022 06/30/2023 [...] section and content) DATE CREATED AUTHOR 05/02/2018 [facility] DATE CREATED AUTHOR AUTHOR'S ORGANIZ ATION 03/12/2020 [facility] DATE CREATED AUTHOR AUTHOR'S ORGANIZ ATION 05/25/2021 [facility] DATE CREATED AUTHOR AUTHOR'S ORGANIZ ATION 12/23/2021 [facility] DATE CREATED AUTHOR AUTHOR'S ORGANIZ ATION 01/17/2022 [facility] DATE CREATED AUTHOR AUTHOR'S ORGANIZ ATION 04/18/2022 [facility] DATE CREATED AUTHOR AUTHOR'S ORGANIZ ATION 06/07/2022 [facility] DATE CREATED AUTHOR AUTHOR'S ORGANIZ ATION 08/28/[address] [facility] DATE CREATED AUTHOR AUTHOR'S ORGANIZ ATION 10/26/2022 [facility] DATE CREATED AUTHOR AUTHOR'S ORGANIZ ATION 12/14/2022 [facility] DATE CREATED AUTHOR AUTHOR'S ORGANIZ ATION 12/14/2022 [facility] DATE CREATED AUTHOR AUTHOR'S ORGANIZ ATION 12/18/2022 [facility] DATE CREATED AUTHOR AUTHOR'S ORGANIZ ATION 02/02/2023 [facility] DATE CREATED AUTHOR AUTHOR'S ORGANIZ ATION 02/06/2023 [facility] DATE CREATED AUTHOR AUTHOR'S ORGANIZ ATION 06/11/2023 [facility] DATE CREATED AUTHOR AUTHOR'S ORGANIZ ATION 12/28/2023 [facility] DATE CREATED AUTHOR AUTHOR'S ORGANIZ ATION 03/05/2024 [facility] DATE CREATED AUTHOR AUTHOR'S ORGANIZ ATION 08/06/2024 [facility] DATE CREATED AUTHOR AUTHOR'S ORGANIZ ATION 09/27/2024 Kalaheo Erickson [facility] DATE CREATED AUTHOR AUTHOR'S ORGANIZ ATION 10/10/2024 [facility] DATE CREATED AUTHOR AUTHOR'S ORGANIZ ATION 10/23/2024 Kalaheo Berks [facility] DATE CREATED AUTHOR AUTHOR'S ORGANIZ ATION 11/02/2024 [facility] EPIC DATE CREATED AUTHOR AUTHOR'S ORGANIZ ATION 11/14/2024 [facility] DATE CREATED AUTHOR AUTHOR'S ORGANIZ ATION 12/18/2024 [facility] Reason for Visit (unrecogniz ed section and content) Reason Comments Infusion Headache Specialty Diagnoses / Procedures Referred By Yeny thurston Referred To Contact Diagnoses Chronic migraine without aura, with intractable migraine, so stated, with status migrainosus Kassie Richardson, PAPERHANGER.FUEL TECHNICIAN [address] [place] [address] Neur Headache [address] [place] [address] Referral ID Status Reason Start Date Expiration Date V isits Requested Visits Authorized [id number] Authorized 05/31/2022 08/29/2022 99 99 Status Reason Specialty Diagnoses / Procedures Referred By Contact Referred To Contact Pending Review Infusion Therapy Diagnoses Migraine, unspecified, intractable, without status migrainosus Procedures AL INJ MAGNESIUM SULFATE AL LIDOCAINE INJECTION AL DEXAMETHASONE SODIUM PHOS AL DRUGS UNCLASSIFIED INJECTION Mayelin Wolff MD [address] [place] [address] [facility] [address] [place] [address] Reason Comments Headache Reason Comments Received Outside Medical Records Reason Comments Results [facility] Reason Comments Follow-up Diarrhea Since hiatal hernia surgery. Reason Comments Results [facility] Specialty Diagnoses / Procedures Referred By Yeny thurston Referred To Contact Radiology Diagnoses Left lower quadrant abdominal pain Procedures CT abdomen pelvis w IV contrast Yossi Chen MD [address] [facility] Medical [facility] [address] [place] [address] Referral ID Status Reason Start Date Expiration Date Visits Requested Visits Authorized [id number] Authorized Perform Procedure 3 07/30/2023 1 1 Reason Comments Other EGDANS - Emailed pre p on 08-23-2022 Reason Comments Other DRUG INDUCED SLEEP E NDOSCOPY Reason Comments Follow Up Reason Comments Radiology CT Specialty Diagnoses / Procedures Referred By Yeny thurston Referred To Contact CT IMAGING Diagnoses Shortness of breath Procedures CT CHEST WO IVCON CAT SCAN OF CHEST Cameron Harmon MD [address] [place] [address] [place] [address] Referral ID Status Reason Start Date Expiration Date V isits Requested Visits Authorized [id number] Closed Auto-Generate d Referral 04/05/2021 05/05/2022 1 1 Reason Comments Follow-up Rash on both legs th e past couple months. Rash has stayed the same. [facility] on 01/29 patient went in for chest [...] 05/18/2024 Reason Comments Medicare Annual Wellness Visit [facility] Reason Comments Thyroid Problem PARATHYROID NEW REF/ LAB Specialty Diagnoses / Procedures [facility] Referred To Contact Endocrinology Diagnoses Low serum parathyroid hormone (PTH) Procedures AL OFFICE/OUTPATIENT [facility] 60 MINUTES Eleonora Leo NP [address] [place] [address] Phone: tel: fax: Latoya Redding MD [address] [place] [address] Phone: tel: fax: Referral ID Status Reason Start Date Expiration Date Visits Requested Visits Authorized [id number] Pending Review Specialty Services Required 06/23/2024 12/20/2024 1 1 Reason Comments Follow-up PTH LAB Reason Comments Weakness, Gen Reason Comments Dental Injury Patient had tooth re moved two weeks ago Saturday at [facility] for tooth removal but the root traveled to sinus. Sx of right ear pain, and thick yellow mucus that started the next day. Has been taking ibuprofen 600mg 3-4 times daily. [facility] sent a couple of referrals to ENT, one called back but can not get him in till another week. Reason Comments URI Reason Comments Sinusitis New Patient : sinusi tis / CT done Specialty Diagnoses / Procedures [facility] Referred To Contact Otolaryngology Diagnoses Acute non-recurrent maxillary sinusitis Abnormal CT scan, sinus Procedures AL OFFICE/OUTPATIENT [facility] 60 MINUTES Radha Burris MD [address] [place] [address] Phone: tel: fax: Lalito Burris DO [address] [place] [address] Phone: tel: fax: Referral ID Status Reason Start Date Expiration Date V isits Requested Visits Authorized [id number] Closed Specialty Services Required 08/21/2024 02/17/2025 1 1 Reason Comments Sinusitis 2 week evon Reason Comments Post-op Reason Comments Post-op 2 week evon Reason Comments Established Patient Follow Up Reason Comments Received Outside Medical Records Ordered Prescriptions (unrec ognized section and content) [...] Sosa RN)1444 (Given - Provider: Soco Hdez RN)2205 (Given - Provider: Agata Garcia RN) 0537 (Given - Provider: Agata Garcia RN)1355 (Given - Provider: Patty Evans)2200 (Due) pramipexole (MIRAPEX) tablet 2 mg 2 mg, Oral, NIGHTLY, First dose (after last modification) on Sat01/04/22 at 2100, Until Discontinued, Give 2-3 hours before bedtime. 2100 (Given - Provider: Ritu Sosa RN) 203 (Given - Provider: Agata Garcia RN) 2100 [...] RN) 0326 (See Alternative - Provider: Agata Gracia RN)0716 (See Alternative - Provider: Agata Garcia [...]
Care Teams (unrecognized sec tion and content) Roof Painter Relationship Specialty Start Date End Date GiannaRadha Burris MD [address] [place] [address] [phone] PCP - General Family Medicine 10/01/17 Roof Painter Relationship Specialty Start Date End Date Radha Burris MD [address] [place] [address] [phone] PCP - General Internal Medicine 01/14/20 Esther Grey, DO [address] [facility] [place] [address] Physician Electrophysiology 01/26/20 Roof Painter Relationship Specialty Start Date End Date Radha Burris [address] [place] [phone] PCP - General Family Medicine 10/09/17 Elian Ceballos MD [address] [place] [address] Primary Staff Physician Cardiology 12/01/20 Herminia Roland MD [address] [place] [address] Primary Staff Physician Cardiology 02/01/21 Roof Painter Relationship Specialty Start Date End Date Radha Burris [address] [place] [phone] PCP - General Family Medicine 10/09/17 Elian Ceballos MD [address] [facility] [place] [address] Primary Staff Physician Cardiology 12/01/20 Herminia Roland MD [address] [place] [address] Primary Staff Physician Cardiology 02/01/21 Roof Painter Relationship Specialty Start Date End Date Radha Burris [address] [place] [phone] PCP - General Family Medicine 10/09/17 Elian Ceballos MD [address] [facility] [place] [address] Primary Staff Physician Cardiology 12/01/20 Herminia Roland MD [address] [place] [address] Primary Staff Physician Cardiology 02/01/21 Roof Painter Relationship Specialty Start Date End Date Radha [address] [place] [phone] PCP - General Family Medicine 10/09/17 Elian Ceballos MD [address] [facility] [place] [address] Primary Staff Physician Cardiology 12/01/20 Herminia Roland MD [address] [facility] [place] [address] Primary Staff Physician Cardiology 02/01/21 Roof Painter Relationship Specialty Start Date End Date Radha Burris [address] [place] [phone] PCP - General Family Medicine 10/09/17 Elian Ceballos MD [address] [facility] [place] [address] Primary Staff Physician Cardiology 12/01/20 Herminia Roland MD [address] [place] [address] Primary Staff Physician Cardiology 02/01/21 Roof Painter Relationship Specialty Start Date End Date Radha Burris [address] [place] [phone] PCP - General Family Medicine 10/09/17 Elian Ceballos MD [address] [facility] [place] [address] Primary Staff Physician Cardiology 12/01/20 Herminia Roland MD [address] [place] [address] Primary Staff Physician Cardiology 02/01/21 Roof Painter Relationship Specialty Start Date End Date Radha Burris [address] [place] [phone] PCP - General Family Medicine 10/09/17 Elian Ceballos MD [address] [facility] [place] [address] Primary Staff Physician Cardiology 12/01/20 Herminia Roland MD [address] [place] [address] Primary Staff Physician Cardiology 02/01/21 Roof Painter Relationship Specialty Start Date End Date Radha Burris [address] [place] [phone] PCP - General Family Medicine 10/09/17 Elian Ceballos MD [address] [place] [address] Primary Staff Physician Cardiology 12/01/20 Herminia Roland MD [address] [place] [address] Primary Staff Physician Cardiology 02/01/21 Roof Painter Relationship Specialty Start Date End Date Radha Burris [address] [place] [address] PCP - General Family Medicine 10/09/17 Elian Ceballos MD [address] [place] [address] Primary Staff Physician Cardiology 12/01/20 Herminia Roland MD [address] [place] [address] Primary Staff Physician Cardiology 02/01/21 Roof Painter Relationship Specialty Start Date End Date Radha Burris [address] [place] [address] PCP - General Family Medicine 10/09/17 Elian Ceballos MD [address] [place] [address] Primary Staff Physician Cardiology 12/01/20 Herminia Roland MD [address] [place] [address] Primary Staff Physician Cardiology 02/01/21 Roof Painter Relationship Specialty Start Date End Date Radha Burris [address] [place] [phone] PCP - General Family Medicine 10/09/17 Elian Ceballos MD [address] [place] [address] Primary Staff Physician Cardiology 12/01/20 Herminia Roland MD [address] [place] [address] Primary Staff Physician Cardiology 02/01/21 Roof Painter Relationship Specialty Start Date End Date Radha Burris MD [address] [phone] PCP - General 03/22/20 Roof Painter Relationship Specialty Start Date End Date Radha Burris [address] [place] [phone] PCP - General Family Medicine 10/09/17 Elian Ceballos MD [address] [place] [address] Primary Staff Physician Cardiology 12/01/20 Herminia Roland MD [address] [place], [place] [phone] Primary Staff Physician Cardiology 02/01/21 Roof Painter Relationship Specialty Start Date End Date Radha Burris [address] [place] [phone] PCP - General Family Medicine 10/09/17 Elian Ceballos MD [address] [place] [address] Primary Staff Physician Cardiology 12/01/20 Herminia Roland MD [address] [place] [address] Primary Staff Physician Cardiology 02/01/21 Roof Painter Relationship Specialty Start Date End Date Radha Burris MD [address] [place] [address] PCP - General 03/22/20 Roof Painter Relationship Specialty Start Date End Date Radha Burris MD [address] [place] [address] PCP - General 03/22/20 Roof Painter Relationship Specialty Start Date End Date Radha Burris MD [address] [place] [address] PCP - General 03/22/20 Team Status: Active Member Role Status Dates Radha Burris MD Primary Care Provide r Active Team Status: Inactive Member Role Status Dates Radha Burris MD Primary Care Provide r Active Charlene Soria MD Attending Provider Active Roof Painter Relationship Specialty Start Date End Date Radha Burris MD [address] [place] [address] PCP - General Internal Medicine 01/14/20 Esther Grey DO [address] [place] [address] [place] [address] Physician Electrophysiology 01/26/20 Roof Painter Relationship Specialty Start Date End Date Radha Burris [address] [place] [phone] PCP - General Family Medicine 10/09/17 Elian Ceballos MD [address] [place] [address] Primary Staff Physician Cardiology 12/01/20 Herminia Roland MD [address] [place] [address] Primary Staff Physician Cardiology 02/01/21 Roof Painter Relationship Specialty Start Date End Date Radha Burris MD [address], [place] [phone] PCP - ACO Reach 09/13/22 Radha Burris MD [address] [place], [place] [phone] PCP - General Family Medicine 09/20/22 Team [...] June 10, 2023 End: June 10, 2023 Roof Painter Relationship Specialty Start Date End Date Radha Burris MD [address] [place], [place] [phone] PCP - General Internal Medicine 01/14/20 Sa MatildaimaDO [address] [place] [address] Physician Electrophysiology 01/26/20 Name Effective Dates (start - stop) Status Members No Information Roof Painter Relationship Specialty Start Date End Date Radha Burris MD [address] [place] [address] PCP - ACO Reach 09/13/22 Radha Burris MD [address] [place] [address] PCP - General Family Medicine 09/20/22 Roof Painter Relationship Specialty Start Date End Date Radha Burris MD [address] [place] [address] PCP - ACO Reach 09/13/22 Radha Burris MD [address] [place] [address] PCP - General Family Medicine 09/20/22 Roof Painter Relationship Specialty Start Date End Date Radha Burris MD [address] [place] [address] PCP - ACO Reach 09/13/22 Radha Burris MD [address] [place] [address] PCP - General Family Medicine 09/20/22 Roof Painter Relationship Specialty Start Date End Date Radha Burris MD [address] [place] [address] PCP - ACO Reach 09/13/22 Radha Burris MD [address] [place] [address] PCP - General Family Medicine 09/20/22 Roof Painter Relationship Specialty Start Date End Date Radha Burris MD [address] [place] [address] PCP - ACO Reach 09/13/22 Radha Burris MD [address] [place] [address] PCP - General Family Medicine 09/20/22 Roof Painter Relationship Specialty Start Date End Date Radha Burris MD [address] [place] [address] PCP - ACO Reach 09/13/22 Radha Burris MD [address] [place] [address] PCP - General Family Medicine 09/20/22 Roof Painter Relationship Specialty Start Date End Date Radha Burris MD [address] [place] [address] PCP - ACO Reach 09/13/22 Radha Burris MD [address] [place] [address] PCP - General Family Medicine 09/20/22 Roof Painter Relationship Specialty Start Date End Date Radha Burris MD [address] [place] [address] PCP - ACO Reach 09/13/22 Radha Burris MD [address] [place] [address] PCP - General Family Medicine 09/20/22 Roof Painter Relationship Specialty Start Date End Date Radha Burris MD [address] [place] [address] PCP - ACO Reach 09/13/22 Radha Burris MD [address] [place] [address] PCP - General Family Medicine 09/20/22 Roof Painter Relationship Specialty Start Date End Date Radha Burris MD [address] [place] [address] PCP - ACO Reach 09/13/22 Radha Burris MD [address] [place] [address] PCP - General Family Medicine 09/20/22 Roof Painter Relationship Specialty Start Date End Date Radha Burris MD [address] [place] [address] PCP - ACO Reach 09/13/22 Radha Burris MD [address] [place] [address] PCP - General Family Medicine 09/20/22 Roof Painter Relationship Specialty Start Date End Date Radha Burris MD [address] [place] [address] PCP - ACO Reach 09/13/22 Radha Burris MD [address] [place] [address] PCP - General Family Medicine 09/20/22 Roof Painter Relationship Specialty Start Date End Date Radha Burris MD [address] [place] [address] PCP - ACO Reach 09/13/22 Radha Burris MD [address] [place] [address] PCP - General Family Medicine 09/20/22 Roof Painter Relationship Specialty Start Date End Date Radha Burris MD [address] [place] [address] PCP - General Family Medicine 09/20/22 Roof Painter Relationship Specialty Start Date End Date Radha Burris MD [address] [place] [address] PCP - General Family Medicine 09/20/22 Radha Burris MD [address] [place] [address] PCP - ACO Reach 06/05/24 Roof Painter Relationship Specialty Start Date End Date Radha Burris MD [address] [place] [address] PCP - General Family Medicine 09/20/22 Radha Burris MD [address] [place] [address] PCP - ACO Reach 06/05/24 Roof Painter Relationship Specialty Start Date End Date Radha Burris MD [address] [place] [address] PCP - General Family Medicine 09/20/22 Radha Burris MD [address] [place] [address] PCP - ACO Reach 06/05/24 Roof Painter Relationship Specialty Start Date End Date Radha Burris MD [address] [place] [address] PCP - General Family Medicine 09/20/22 Radha Burris MD [address] [place] [address] PCP - ACO Reach 06/05/24 Shashi Pina DO [address] [place] [address] Referring Physician Neurology 06/22/24 Roof Painter Relationship Specialty Start Date End Date Radha Burris MD [address] [place] [address] PCP - General Family Medicine 09/20/22 Radha Burris MD [address] [place] [address] PCP - ACO Reach 06/05/24 Shashi Pina DO [address] [place] [address] Referring Physician Neurology 06/22/24 Roof Painter Relationship Specialty Start Date End Date Radha Burris MD [address] [place] [address] PCP - General Family Medicine 09/20/22 Radha Burris MD [address] [place] [address] PCP - ACO Reach 06/05/24 Shashi Pian DO [address] [place] [address] Referring Physician Neurology 06/22/24 Roof Painter Relationship Specialty Start Date End Date Radha Burris MD [address] [place] [address] PCP - General Family Medicine 09/20/22 Shashi Pina DO [address] [place] [address] Referring Physician Neurology 06/22/24 Roof Painter Relationship Specialty Start Date End Date Radha Burris MD [address] [place] [address] PCP - General Family Medicine 09/20/22 Shashi Pina DO [address] [place] [address] Referring Physician Neurology 06/22/24 Roof Painter Relationship Specialty Start Date End Date Radha Burris MD [address] [place] [address] PCP - General Family Medicine 09/20/22 Shashi Pina DO [address] [place] [id number] Referring Physician Neurology 06/22/24 Roof Painter Relationship Specialty Start Date End Date Radha Burris MD [address] [facility] [place] [address] PCP - General Family Medicine 09/20/22 Shashi Pina DO [address] [address] Referring Physician Neurology 06/22/24 Roof Painter Relationship Specialty Start Date End Date Radha Burris MD [address] [facility] [place] [address] PCP - General Family Medicine 09/20/22 Shashi Pina DO [address] [address] Referring Physician Neurology 06/22/24 Roof Painter Relationship Specialty Start Date End Date Radha Burris MD [address] [facility] [place] [address] PCP - General Family Medicine 09/20/22 Shashi Pina DO [address] [address] Referring Physician Neurology 06/22/24 Roof Painter Relationship Specialty Start Date End Date Radha Burris MD [address] [facility] [place] [address] PCP - General Family Medicine 09/20/22 Shashi Pina DO [address] [address] Referring Physician Neurology 06/22/24 Roof Painter Relationship Specialty Start Date End Date Radha Burris MD [address] [place] [address] PCP - General Family Medicine 09/20/22 Shashi Pina DO [address] [address] Referring Physician Neurology 06/22/24 Roof Painter Relationship Specialty Start Date End Date Radha Burris MD [address] [place] [address] PCP - General Family Medicine 09/20/22 Shashi Pina DO [address] [address] Referring Physician Neurology 06/22/24 Roof Painter Relationship Specialty Start Date End Date Radha Burris MD [address] [place] [address] PCP - General Family Medicine 09/20/22 Shashi Pina DO [address] [place] [address] Referring Physician Neurology 06/22/24 Roof Painter Relationship Specialty Start Date End Date Radha Burris MD [address] [place] [address] PCP - General Family Medicine 09/20/22 Shashi Pina DO [address] [place] [address] Referring Physician Neurology 06/22/24 Roof Painter Relationship Specialty Start Date End Date Radha Burris MD [address] [place] [address] PCP - General Family Medicine 09/20/22 Shashi Pina DO [address] [place] [address] Referring Physician Neurology 06/22/24 Roof Painter Relationship Specialty Start Date End Date Radha Burris MD [address] [place] [address] PCP - General Family Medicine 09/20/22 Shashi Pina DO [address] [address] Referring Physician Neurology 06/22/24 Roof Painter Relationship Specialty Start Date End Date Radha Burris MD [address] [place] [address] PCP - General Family Medicine 09/20/22 Shashi Pina DO [address] [address] Referring Physician Neurology 06/22/24 Roof Painter Relationship Specialty Start Date End Date Radha Burris MD [address] [place] [address] PCP - General Family Medicine 09/20/22 Shashi Pina DO [address] [place] [address], [place] [address] Referring Physician Neurology 06/22/24 Roof Painter Relationship Specialty Start Date End Date Radha Burris [address] [place] [phone] PCP - General Family Medicine 10/09/17 Elian Ceballos MD [address] [place] [address] Primary Staff Physician Cardiology 12/01/20 Herminia Roland MD [address] [place] [address] Primary Staff Physician Cardiology 02/01/21 Roof Painter Relationship Specialty Start Date End Date Radha Burris MD [address] [place] [address] PCP - General Family Medicine 10/09/17 Elian Ceballos MD [address] [place] [address] Primary Staff Physician Cardiology 12/01/20 Herminia Roland MD [address] [place] [address] Primary Staff Physician Cardiology 02/01/21 Roof Painter Relationship Specialty Start Date End Date Radha Burris MD [address] [place] [phone] PCP - General Family Medicine 10/09/17 Elian Ceballos MD [address] [place] [address] Primary Staff Physician Cardiology 12/01/20 Herminia Roland MD [address] [place] [place], [place] [id number] Primary Staff Physician Cardiology 02/01/21 Roof Painter Relationship Specialty Start Date End Date Radha Burris MD [address], [place] [id number] PCP - General Family Medicine 09/20/22 Shashi Pina DO [address] [place] [address] Referring Physician Neurology 06/22/24 Roof Painter Relationship Specialty Start Date End Date Radha Burris MD [address] [place] [id number] PCP - General Family Medicine 10/09/17 Elian Ceballos MD [address] [place] [address] Primary Staff Physician Cardiology 12/01/20 Herminia Roland MD [address] [place] [address] Primary Staff Physician Cardiology 02/01/21 Source Comments (unrecognize d section and content) In the event this informatio n is protected by the Federal Confidentiality of Alcohol and Drug Abuse Patient Records regulations: The Federal rules restrict any use of the information to criminally investigate or prosecute any alcohol or drug abuse patient.[facility] the event this information is protected by the Federal Confidentiality of Alcohol and Drug Abuse Patient Records regulations: The Federal rules restrict any use of the information to criminally investigate or prosecute any alcohol or drug abuse patient.[facility] the event this information is protected by the Federal Confidentiality of Alcohol and Drug Abuse Patient Records regulations: The Federal rules restrict any use of the information to criminally investigate or prosecute any alcohol or drug abuse patient.[facility] the event this information is protected by the Federal Confidentiality of Alcohol and Drug Abuse Patient Records regulations: The Federal rules restrict any use of the information to criminally investigate or prosecute any alcohol or drug abuse patient.[facility] the event this information is protected by the Federal Confidentiality of Alcohol and Drug Abuse Patient Records regulations: The Federal rules restrict any use of the information to criminally investigate or prosecute any alcohol or drug abuse patient.[facility] the event this information is protected by the Federal Confidentiality of Alcohol and Drug Abuse Patient Records regulations: The Federal rules restrict any use of the information to criminally investigate or prosecute any alcohol or drug abuse patient.[facility] the event this information is protected by the Federal Confidentiality of Alcohol and Drug Abuse Patient Records regulations: The Federal rules restrict any use of the information to criminally investigate or prosecute any alcohol or drug abuse patient.[facility] the event this information is protected by the Federal Confidentiality of Alcohol and Drug Abuse Patient Records regulations: The Federal rules restrict any use of the information to criminally investigate or prosecute any alcohol or drug abuse patient.[facility] the event this information is protected by the Federal Confidentiality of Alcohol and Drug Abuse Patient Records regulations: The Federal rules restrict any use of the information to criminally investigate or prosecute any alcohol or drug abuse patient.[facility] the event this information is protected by the Federal Confidentiality of Alcohol and Drug Abuse Patient Records regulations: The Federal rules restrict any use of the information to criminally investigate or prosecute any alcohol or drug abuse patient.[facility] the event this information is protected by the Federal Confidentiality of Alcohol and Drug Abuse Patient Records regulations: The Federal rules restrict any use of the information to criminally investigate or prosecute any alcohol or drug abuse patient.[facility] the event this information is protected by the Federal Confidentiality of Alcohol and Drug Abuse Patient Records regulations: The Federal rules restrict any use of the information to criminally investigate or prosecute any alcohol or drug abuse patient.[facility] the event this information is protected by the Federal Confidentiality of Alcohol and Drug Abuse Patient Records regulations: The Federal rules restrict any use of the information to criminally investigate or prosecute any alcohol or drug abuse patient.[facility] the event this information is protected by the Federal Confidentiality of Alcohol and Drug Abuse Patient Records regulations: The Federal rules restrict any use of the information to criminally investigate or prosecute any alcohol or drug abuse patient.[facility] the event this information is protected by the Federal Confidentiality of Alcohol and Drug Abuse Patient Records regulations: The Federal rules restrict any use of the information to criminally investigate or prosecute any alcohol or drug abuse patient.[facility]In the event this information is protected by the Federal Confidentiality of Alcohol and Drug Abuse Patient Records regulations: The Federal rules restrict any use of the information to criminally investigate or prosecute any alcohol or drug abuse patient.[facility]In the event this information is protected by the Federal Confidentiality of Alcohol and Drug Abuse Patient Records regulations: The Federal rules restrict any use of the information to criminally investigate or prosecute any alcohol or drug abuse patient.[facility] HospitalIn the event this information is protected by the Federal Confidentiality of Alcohol and Drug Abuse Patient Records regulations: The Federal rules restrict any use of the information to criminally investigate or prosecute any alcohol or drug abuse patient.[facility]In the event this information is protected by the Federal Confidentiality of Alcohol and Drug Abuse Patient Records regulations: The Federal rules restrict any use of the information to criminally investigate or prosecute any alcohol or drug abuse patient.[facility] HospitalIn the event this information is protected by the Federal Confidentiality of Alcohol and Drug Abuse Patient Records regulations: The Federal rules restrict any use of the information to criminally investigate or prosecute any alcohol or drug abuse patient.[facility] HospitalIn the event this information is protected by the Federal Confidentiality of Alcohol and Drug Abuse Patient Records regulations: The Federal rules restrict any use of the information to criminally investigate or prosecute any alcohol or drug abuse patient.[facility] FOR RECORDS PERTAINING TO PATIENTS WHO [...] BE BASED ON THE PRIMARY CLINICAL RECORDS. [facility] [employer] [facility]. provides no warranty or guarantee of the accuracy or completeness of information in this document.
[2024-12-20 03:39] VITALS: BP 129/86; PULSE 77; TEMP 36.6; O2SAT 98; BMI 28.3
--- NOTE | 2024-12-20 03:49 | ED_ITS ---
HPI - Extremity Problem General Chief complaint: Extremity Problem, Nontraumatic Stated complaint: LE PAIN Time Seen by Provider: 12/20/24 03:42 Source: patient Mode of arrival: walk-in Limitations: no limitations History of Present Illness HPI Narrative: patient presents complaining of pain of both thighs that started tonight. Similar pain over the past month. States he is able to wrap his thighs with alexandru bandage and this usually helps relieve the pain so it is tolerable. This did not work tonight. No injury . States when trying to walk up stairs his legs hurt also. Related Data Home Medications ?Medication ?Instructions ?Recorded ?Confirmed levothyroxine 150 mcg tablet 150 mcg PO .COMPLEX 01/1601/25/24 aspirin 81 mg tablet,delayed 81 mg PO DAILY 05/17/23 1 release (Adult Low Dose Aspirin) ergocalciferol (vitamin D2) 1,250 50,000 unit PO QWEEK 05/17/23 01/25/24 mcg (50,000 unit) capsule metoprolol tartrate 25 mg tablet 25 mg PO BID 01/25/24 01/25/24 Allergies Allergy/AdvReac Type Severity Reaction Status Date / Time Penicillins Allergy Intermediate Unknown Verified 12/20/24 03:34 vancomycin Allergy Intermediate Unknown Verified 12/20/24 03:34 dofetilide (From Tikosyn) Allergy Unknown Unknown Verified 12/20/24 03:34 Review of Systems ROS Status of ROS 10 or more systems reviewed and unremark able except as noted in history and below [facility] Medical History (Updated 12/20/24 @ 05:30 by Herbie Bah MD) Orthostatic hypotension dysautonomic syndrome ?I95.1 - Orthostatic hypotension (ICD-10) Autonomic dysfunction ?G90.9 - Disorder of the autonomic nervous system, unspecified (ICD-10) Hypothyroid ?E03.9 - 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, unspecified (ICD-10) Presence of Watchman left atrial appendage closure device ?Z95.818 - Presence of other cardiac implants and grafts (ICD-10) Laceration Paresthesia ?R20.2 - Paresthesia of skin (ICD-10) Chest pain ?R07.9 - Chest pain, unspecified (ICD-10) Cellulitis of finger of left hand ?L03.012 - Cellulitis of left finger (ICD-10) Angina at rest ?I20.89 - Other forms of angina pectoris (ICD-10) Atrial fibrillation ?I48.91 - Unspecified atrial fibrillation (ICD-10) Pacemaker ?Z95.0 - Presence of cardiac pacemaker (ICD-10) Chronic kidney disease ?N18.9 - Chronic kidney disease, unspecified (ICD-10) Surgical History (Updated 01/25/24 @ 12:30 by Rosa Abreu) History of cholecystectomy ?Z90.49 - Acquired absence of other specified parts of digestive tract (ICD- 10) History of hernia repair ?Z98.890 - Other specified postprocedural states (ICD-10) ?Z87.19 - Personal history of other diseases of the digestive system (ICD-10) Social History Smoking status: Former smoker Little interest or pleasure in doing things: not at all Feeling down, depressed, or hopeless: not at all Exam Constitutional Vital Signs, click to edit/add: Last Vital Signs Temp 97.9 F 12/20/24 03:39 Pulse 77 12/20/24 03:39 Resp 20 12/20/24 03:39 BP 129/86 12/20/24 03:39 Pulse Ox 98 12/20/24 03:39 O2 Del Method Room Air 12/20/24 03:39 Common normals: no apparent distress, average body habitus, oriented x3, no limitations, healthy appearing, alert and well nourished [facility] Common normals: normocephalic and head/scalp atraumatic Eye Common normals: EOMs intact bilaterally and conjunctivae normal Respiratory Common normals: normal respiratory effort, no retractions and no use of accessory muscles Cardio Common normals: regular rate, regular rhythm, S1 normal heart sound and S2 normal heart sound Extremity Common normals: normal to inspection and full ROM Other: mild tenderness of his quads bilat. No swelling or erythema Neuro Common normals: oriented x3, moves all extremities and no focal motor deficits Course Vital Signs Vital signs: Vital Signs Temperature 97.9 F 12/20/24 03:39 Pulse Rate 77 12/20/24 03:39 Respiratory Rate 20 12/20/24 03:39 Blood Pressure 129/86 12/20/24 03:39 Pulse Oximetry 98 12/20/24 03:39 Oxygen Delivery Method Room Air 12/20/24 03:39 Temperature 97.9 F 12/20/24 03:39 Pulse Rate 77 12/20/24 03:39 Respiratory Rate 20 12/20/24 03:39 Blood Pressure 129/86 12/20/24 03:39 Pulse Oximetry 98 12/20/24 03:39 Oxygen Delivery Method Room Air 12/20/24 03:39 MDM - Extremity (Nontraumatic) MDM Narrative Medical decision making narrative: patient presents with atypical bilat thigh pain. no injury. Describes as c ramping like sharp pain. States similar pain on and off over the past month. Able to treat with alexandru bandages until tonight. No fever. No swelling or discoloration his thighs. Mild tenderness CBC WNL. Normal CRP. Patient treated with cocktail of anti inflammatory, magnesium and muscle relaxant patient is feeling better. No longer has pain of the right thigh. pain left thigh improved and is tolerable. He did not want any pain medications for home. Advised to follow up with his family doctor Lab Data Labs: Lab Results 12/20/24 Range/Units 04:10 WBC 7.6 (4.0-11.0) 10^3/uL RBC 5.03 (4.70-6.10) 10^6/uL Hgb 14.3 (14.0-18.0) g/dL Hct 42.6 (42.0-54.0) % MCV 84.7 (80.0-94.0) fL MCH 28.4 (25.9-34.0) pg MCHC 33.6 (29.9-35.2) g/dL RDW 14.1 (11.0-15.0) % Plt Count 197 (150-450) 10^3/uL MPV 10.1 (9.5-13.5) fL Neut % (Auto) 56.6 (43.0-75.0) % Lymph % (Auto) 26.2 (20.5-60.0) % Mineral % (Auto) 12.5 H (1.7-12.0) % Eos % (Auto) 3.4 (0.9-7.0) % Baso % (Auto) 0.8 (0.2-2.0) % Neut # (Auto) 4.3 (1.4-6.5) 10^3/uL Lymph # (Auto) 2.0 (1.2-3.8) 10^3/uL Mineral # (Auto) 0.9 H (0.3-0.8) 10^3/uL Eos # (Auto) 0.3 (0.0-0.7) 10^3/uL Baso # (Auto) 0.1 (0.0-0.1) 10^3/uL Abs Immat Gran (auto) 0.04 H (0.00-0.03) 10^3/uL Imm/Tot Granulo (auto) 0.5 (0.0-0.5) % Sodium 142 (136-145) mmol/L Potassium 4.2 (3.5-5.1) mmol/L Chloride 106 (98-107) mmol/L Carbon Dioxide 26.3 (21.0-32.0) mmol/L Anion Gap 13.9 BUN 36.0 H (7.0-18.0) mg/dL Creatinine 1.30 (0.70-1.30) mg/dL Est GFR ( Amer) >60 (>=60 mL/min/1.73m^2) Est GFR (Non-Af Amer) 54 L (>=60 mL/min/1.73m^2) BUN/Creatinine Ratio 27.7 Glucose 118 H (74-106) mg/dL Calcium 8.2 L (8.5-10.1) mg/dL C-Reactive Protein <0.50 (<=0.50) mg/dL Discharge Plan Discharge Chief Complaint: Extremity Problem, Nontraumatic Clinical Impression: Bilateral leg pain Patient Disposition: Home, Self-Care Prescriptions / Home Meds: No Action ergocalciferol (vitamin D2) 1,250 mcg (50,000 unit) capsule 50,000 unit PO QWEEK aspirin [Adult Low Dose Aspirin] 81 mg tablet,delayed release (DR/EC) 81 mg PO DAILY levothyroxine 150 mcg tablet 150 mcg PO .COMPLEX Rx Instructions: 150 mcg orally 4 times a wk; Mon, Wed, Fri, Sun; metoprolol tartrate 25 mg tablet 25 mg PO BID Print Language: Solomon Islander Instructions: Leg Cramps (ED), Leg Pain (ED) Additional Instructions: follow up with your doctor next week for recheck Referrals: ANASTASIA BURRIS [Primary Care Provider, Family Practice] - 1 week
[2024-12-20 04:15] LABS: Hematocrit 42.6 % (42.0-54.0); Hemoglobin 14.3 g/dL (14.0-18.0); Immature Granulocytes Abs Auto 0.04 10^3/uL (0.00-0.03); Immature Granulocytes Pct Auto 0.5 % (0.0-0.5); Lymphocytes Absolute Auto 2.0 10^3/uL (1.2-3.8); Mean Corpuscular HGB Conc 33.6 g/dL (29.9-35.2); Mean Corpuscular Hemoglobin 28.4 pg (25.9-34.0); Mean Corpuscular Volume 84.7 fL (80.0-94.0); Platelet Count 197 10^3/uL (150-450); Red Blood Count 5.03 10^6/uL (4.70-6.10); White Blood Count 7.6 10^3/uL (4.0-11.0)
[2024-12-20] MEDS: KETOROLAC TROMETHAMINE 30 MG/ML VIAL IVP (04:23)
[2024-12-20] MEDS: MAGNESIUM SULFATE IN WATER 2 GM/50 ML PREMIX IV (04:23)
[2024-12-20] MEDS: METHYLPREDNISOLONE SOD SUCC PF 125 MG/2 ML VIAL IVP (04:23)
[2024-12-20 04:27] LABS: Anion Gap 13.9; Blood Urea Nitrogen 36.0 mg/dL (7.0-18.0); Calcium 8.2 mg/dL (8.5-10.1); Carbon Dioxide 26.3 mmol/L (21.0-32.0); Chloride 106 mmol/L (98-107); Estimated GFR (African America >60 (>=60 mL/min/1.73m^2); Estimated GFR (Non-African Ame 54 (>=60 mL/min/1.73m^2); Glucose 118 mg/dL (74-106); Potassium 4.2 mmol/L (3.5-5.1); Sodium 142 mmol/L (136-145)
[2024-12-20] MEDS: ORPHENADRINE 60 MG/2 ML VIAL IV (05:19)
== END 2024-12-20 06:24 | disposition home or self-care (01) ==
PROVIDERS: Emergency Provider Internal Medicine; PCP Family Medicine
DX: M79.652 Pain in left thigh (principal); M79.651 Pain in right thigh; Z95.0 Presence of cardiac pacemaker; Z90.49 Acquired absence of other specified parts of digestive tract; Z87.891 Personal history of nicotine dependence
CPT/HCPCS: 36415; 80048; 85025; 86140; 96365; 96375; 99284; J1885; J2360; J2919; J3475

== ENCOUNTER 2025-01-10 10:44 | Emergency (ER) | payer MEDICARE, OTHER, SELFPAY ==
[2025-01-10] VITALS (17 sets, daily range): BP systolic 130–164; BP diastolic 80–99; PULSE 74–91; O2SAT 99–100; BMI 28.3
--- NOTE | 2025-01-10 10:57 | ECG_ITS ---
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 Measurements Intervals Sage Rate: 82 P: 90 VA: 209 QRS: 20 QRSD: 76 T: 30 QT: 412 QTc: 451 Interpretive Statements NORMAL SINUS RHYTHM with FIRST DEGREE AV BLOCK Nonspecific T wave changes 8102 Low QRS voltage in chest leads 9150 abnormal ECG Compared to ECG 01/26/2024 04:10:28 Low QRS voltage now present Atrial flutter no longer present Electronically Signed On 01-10-2025 14:00:31 EDT by GURU CHRISTIE M.D.
--- NOTE | 2025-01-10 10:57 | XR_ITS ---
[address] [address] Patient Name: YOLI ANTUNEZ MRN: [id number] date: 1955 Sex: M Assigned Patient Location: ER Current Patient Location: ED.MAIN Accession/Order Number: [id number] Exam Date: 01/10/2025 11:06 Report Date: 01/10/2025 12:28 At the request of: CONCHA PHILLIPS MD Procedure: XR chest 1V PA CHEST: CLINICAL HISTORY: Chest pain COMPARISON: 01/25/2024 Findings: Cardiomegaly with minimal perihilar congestion. Left-sided pacemaker device.. No airspace opacity effusion or pneumothorax. XR/XR chest 1V IMPRESSION: Cardiomegaly with mild perihilar congestion. Impression dictated by: Jerome Salcido M.D. 01/10/2025 12:28 PM Dictation Location: [place] [address] Electronically authenticated by: [id number] Y Date: 01/10/2025 12:28
[2025-01-10 11:12] LABS: Hematocrit 41.2 % (42.0-54.0); Hemoglobin 13.7 g/dL (14.0-18.0); Immature Granulocytes Abs Auto 0.03 10^3/uL (0.00-0.03); Immature Granulocytes Pct Auto 0.4 % (0.0-0.5); Lymphocytes Absolute Auto 1.8 10^3/uL (1.2-3.8); Mean Corpuscular HGB Conc 33.3 g/dL (29.9-35.2); Mean Corpuscular Hemoglobin 28.2 pg (25.9-34.0); Mean Corpuscular Volume 84.8 fL (80.0-94.0); Platelet Count 208 10^3/uL (150-450); Red Blood Count 4.86 10^6/uL (4.70-6.10); White Blood Count 6.9 10^3/uL (4.0-11.0)
[2025-01-10] MEDS: ASPIRIN 81 MG TAB.CHEW 324 MG PO (11:12)
[2025-01-10] MEDS: NITROGLYCERIN 0.4 MG BOTTLE SL (11:12)
--- NOTE | 2025-01-10 11:15 | ED.GENADUL1 ---
HPI HPI - General Adult General Chief complaint: Chest Pain Stated complaint: CHEST PAIN Time Seen by Provider: 01/10/25 10:53 Source: patient Mode of arrival: walk-in History of Present Illness HPI narrative: 69-year-old male presented to the emergency department for a chief complaint of chest pain. It started 2 hours ago while he was working outside, feeding animals and then walking. It is on the left side of his chest and feels like a pressure in it has been coming and going. He has a pacemaker and had Watchman procedure. He states he had a heart catheterization about a year ago and it showed about 60% blockage in at least 1 vessel. He does not have any stents. No fever cough or trauma or shortness of breath. Related Data Home Medications ?Medication ?Instructions ?Recorded ?Confirmed levothyroxine 150 mcg tablet 150 mcg PO .COMPLEX 01/16/23 01/25/24 aspirin 81 mg tablet,delayed 81 mg PO DAILY 05/17/23 01/25/24 release (Adult Low Dose Aspirin) ergocalciferol (vitamin D2) 1,250 50,000 unit PO QWEEK 05/17/23 01/25/24 mcg (50,000 unit) capsule metoprolol tartrate 25 mg tablet 25 mg PO BID 01/25/24 01/25/24 Allergies Allergy/AdvReac Type Severity Reaction Status Date / Time Penicillins Allergy Intermediate Unknown Verified 12/20/24 03:34 vancomycin Allergy Intermediate Unknown Verified 12/20/24 03:34 dofetilide (From Tikosyn) Allergy Unknown Unknown Verified 12/20/24 03:34 Opioid HPI Opioid Management Most Recent Opioid Data: Last Pain Scale 6 01/26/24, 11:51 Last ORT Total Score 0 01/25/24, 12:18 Last ORT Risk Category Low Risk 01/25/24, 12:18 Review of Systems ROS Narrative A ten point review of systems is negative except as noted above. [facility] Medical History (Updated 01/10/25 @ 13:18 by Satinder Willard MD) Orthostatic hypotension dysautonomic syndrome ?I95.1 - Orthostatic hypotension (ICD-10) Autonomic dysfunction ?G90.9 - Disorder of the autonomic nervous system, unspecified (ICD-10) Hypothyroid ?E03.9 - 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, unspecified (ICD-10) Presence of Watchman left atrial appendage closure device ?Z95.818 - Presence of other cardiac implants and grafts (ICD-10) Laceration Paresthesia ?R20.2 - Paresthesia of skin (ICD-10) Chest pain ?R07.9 - Chest pain, unspecified (ICD-10) Cellulitis of finger of left hand ?L03.012 - Cellulitis of left finger (ICD-10) Angina at rest ?I20.89 - Other forms of angina pectoris (ICD-10) Atrial fibrillation ?I48.91 - Unspecified atrial fibrillation (ICD-10) Pacemaker ?Z95.0 - Presence of cardiac pacemaker (ICD-10) Chronic kidney disease ?N18.9 - Chronic kidney disease, unspecified (ICD-10) Surgical History (Updated 01/25/24 @ 12:30 by Rosa Abreu) History of cholecystectomy ?Z90.49 - Acquired absence of other specified parts of digestive tract (ICD-10) History of hernia repair ?Z98.890 - Other specified postprocedural states (ICD-10) ?Z87.19 - Personal history of other diseases of the digestive system (ICD-10) Social History Smoking status: Former smoker Little interest or pleasure in doing things: not at all Feeling down, depressed, or hopeless: not at all Exam Narrative Exam Narrative: Nurses note and vital signs reviewed and patient is not hypoxic. General: The patient appears uncomfortable and is in no acute respiratory distress Skin: Warm, dry, no pallor noted. There is no rash noted. Head: Normocephalic, atraumatic Eye: Normal conjunctiva, no drainage Ears, Nose, Mouth, and Throat: oral mucosa is moist. Nares patent. Cardiovascular: Regular Rate and Rhythm; chest wall is not tender Respiratory: Patient is in no distress, no accessory muscle use, lungs are clear to auscultation, no wheezing, rales or rhonchi Back: non-tender GI: Soft and nontender Musculoskeletal: The patient has no evidence of calf tenderness, no pitting edema, symmetrical pulses noted bilaterally Neurological: A&O, normal speech Psychiatric: Cooperative Constitutional Vital Signs, click to edit/add: Last Vital Signs Pulse 81 01/10/25 13:10 Resp 17 01/10/25 13:10 BP 164/99 H 01/10/25 13:00 Pulse Ox 100 01/10/25 10:53 Course Vital Signs Vital signs: Vital Signs Pulse Rate 76 01/10/25 10:47 Respiratory Rate 18 01/10/25 10:47 Blood Pressure 137/88 01/10/25 10:47 Pulse Oximetry 99 01/10/25 10:47 Pulse Rate 81 01/10/25 13:10 Respiratory Rate 17 01/10/25 13:10 Blood Pressure 164/99 H 01/10/25 13:00 Pulse Oximetry 100 01/10/25 10:53 Medical Decision Making MDM Narrative Medical decision making narrative: Workup and going to sets of troponin is negative. His nitroglycerin has taken away his pain, essentially completely according the patient. I spoke to Dr. Godwin who recommends the patient be discharged home and follow-up promptly in the office. The patient has a new bottle of nitroglycerin at home. Treatment diagnosis and follow-up were discussed thoroughly. Dr. Godwin is familiar with this patient and knows his heart catheterization results. He has no critical stenosis. Small vessel disease is known to be present. Lab Data Lab results reviewed: Yes I reviewed the patient's lab results Labs: Lab Results 01/10/25 01/10/25 Range/Units 10:56 11:57 WBC 6.9 (4.0-11.0) 10^3/uL RBC 4.86 (4.70-6.10) 10^6/uL Hgb 13.7 L (14.0-18.0) g/dL Hct 41.2 L (42.0-54.0) % MCV 84.8 (80.0-94.0) fL MCH 28.2 (25.9-34.0) pg MCHC 33.3 (29.9-35.2) g/dL RDW 14.6 (11.0-15.0) % Plt Count 208 (150-450) 10^3/uL MPV 10.3 (9.5-13.5) fL Neut % (Auto) 59.1 (43.0-75.0) % Lymph % (Auto) 25.7 (20.5-60.0) % [place] % (Auto) 10.9 (1.7-12.0) % Eos % (Auto) 3.5 (0.9-7.0) % Baso % (Auto) 0.4 (0.2-2.0) % Neut # (Auto) 4.1 (1.4-6.5) 10^3/uL Lymph # (Auto) 1.8 (1.2-3.8) 10^3/uL [place] # (Auto) 0.8 (0.3-0.8) 10^3/uL Eos # (Auto) 0.2 (0.0-0.7) 10^3/uL Baso # (Auto) 0.0 (0.0-0.1) 10^3/uL Abs Immat Gran (auto) 0.03 (0.00-0.03) 10^3/uL Imm/Tot Granulo (auto) 0.4 (0.0-0.5) % Sodium 141 (136-145) mmol/L Potassium 4.3 (3.5-5.1) mmol/L Chloride 108 H (98-107) mmol/L Carbon Dioxide 25.6 (21.0-32.0) mmol/L Anion Gap 11.7 BUN 35.0 H (7.0-18.0) mg/dL Creatinine 1.37 H (0.70-1.30) mg/dL Est GFR ( Amer) >60 (>=60 mL/min/1.73m^2) Est GFR (Non-Af Amer) 51 L (>=60 mL/min/1.73m^2) BUN/Creatinine Ratio 25.5 Glucose 103 (74-106) mg/dL Calcium 8.1 L (8.5-10.1) mg/dL Troponin I High Sens 4.0 <4.0 L (4.0-76.1) pg/mL Imaging Data Chest x-ray: Radiologist's impression: ITS Impressions Chest X-Ray 01/10/25 10:57 IMPRESSION: Cardiomegaly with mild perihilar congestion. Impression dictated by: Jerome Salcido M.D. 01/10/2025 12:28 PM Dictation Location: [place] [address] Electronically authenticated by: [id number] Y Date: 01/10/2025 12:28 ECG Data Attestation: I personally reviewed and interpreted this ECG as follows: (EKG on my interpretation shows paced atrial rhythm) Discharge Plan Discharge Chief Complaint: Chest Pain Clinical Impression: Chest pain Qualifiers: Chest pain type: precordial pain Qualified Code(s): R07.2 - Precordial pain Patient Disposition: Home, Self-Care Time of Disposition Decision: 13:18 Condition: Good Mode of Transportation: Private Vehicle Prescriptions / Home Meds: No Action ergocalciferol (vitamin D2) 1,250 mcg (50,000 unit) capsule 50,000 unit PO QWEEK aspirin [Adult Low Dose Aspirin] 81 mg tablet,delayed release (DR/EC) 81 mg PO DAILY levothyroxine 150 mcg tablet 150 mcg PO .COMPLEX Rx Instructions: 150 mcg orally 4 times a wk; Mon, Wed, Fri, Sun; metoprolol tartrate 25 mg tablet 25 mg PO BID Print Language: [place] Instructions: Chest Pain (ED) Referrals: ANASTASIA BURRIS [Primary Care Provider, Family Practice] - 1 week
--- OUTSIDE RECORDS SUMMARY | 2025-01-10 11:22 | XMS_ITS | CCD ---
Author Organization [facility] Inform ion Partnership [facility] Care Team Providers Care Pie Icer Machine Name Role Phone CLAIR MATT Unavailable Unavailable RADHA BURRIS Unavailable Unavailable Chris Luong Unavailable Unavailable Fatuma, Ritu Unavailable Unavailable Terrell Her Unavailable Unavailable Terrell Her Unavailable Unavailable Lara Escobar Unavailable Unavailable Ritu Burris Unavailable Unavailable RADHA PRICE Primary Care Un available MAYELIN WOLFF Referring Unavailable Radha Price [facility] PROVIDER, UNKNOWN Attending Unavailable PROVIDER, UNKNOWN [...] FORD Consulting Unavailable EVELIO, DARIELA Admitting Unavailable DARIELA FRASER Attending Unavailable KATHIE SEVERINO Referring Unavailable RADHA [...] Diego, Dr. Beth Hedrick Admitting Unavai lable Diego, Dr. Beth Hedrick Attending Unavai lable [...] K Unavailable Luan VAZQUEZ, Herminia Schuler Unavailable Radha Burris MD Primary Care Provider YOSSI CHEN Attending Unavailable RADHA BURRIS Primary Care Unavailable RADHA BURRIS Primary Care Unavailable RADHA BURRIS Primary Care Unavailable Asaad, Imad Unavailable MD Radha Rapp Primary Care Pr ovider MD Estella Imallison Attending Provider Radha Burris MD Primary Care Provider Matilda ALARCON, Esther Unavailable Radha Burris MD Unavailable [phone] Radha Burris MD Primary Care Provider Radha Rapp Primary Care Un available Asaad, Imad Admitting Unavailable Asaad, Imad Attending Unavailable Radha Rapp Primary Care Un available Asaad, Imad Admitting Unavailable Asaad, Imad Attending Unavailable Kargabriel DO, Esther Unavailable YOSSI CHEN Referring Unavailable RADHA BURRIS Primary Care Unavailable Radha Burris Primary Care Provider [phone] Donn Ceballos MD Unavailable Unavailable Donn Ceballos Attending Unavailable Radha Burris Referring Unavailable Radha Burris Primary Care Unavailable Donn Ceballos MD Unavailable Unavailable Donn Ceballos MD Unavailable Unavailable Radha Burris MD Unavailable [phone] Shashi Pina DO Unavailable RADHA BURRIS Primary Care Physician Lalito Burris Admitting Unavailable Lalito Burris Attending Unavailable Lalito Burris Referring Unavailable Shashi Pina DO Unavailable [phone] Lalito Burris Referring Unavailable Dayton, Lalito Hill Admitting Unavailable Dayton, Lalito Hill Attending Unavailable Dayton, Lalito Hill Referring Unavailable Biedenbach, Lalito Hill Admitting Unavailable Bicamdenengalo, Lalito Hill Attending Unavailable Silvana DO Christopher Unavailable [phone] Silvana ALARCON Christopher Unavailable Radha Burris MD Primary Care Provider [phone] SHIVANI ADAMS Attending Unavailable BRYAN, SHIVANI Attending Unavailable RADHA BURRIS Attending Unavailable LALITO BURRIS Attending Unavailable RADHA BURRIS Referring Unavailable SHIVANI ADAMS Attending Unavailable RADHA BURRIS Attending Unavailable KAVYALATOYA Attending Unavailable KAVYALATOYA MOORE Attending Unavailable AHMET, ELEONORA Levi Referring Unavailab SHASHI Simpson Attending Unavailable AHMET, ELEONORA Levi Referring Unavailab le HACKSAM, ELEONORA Levi Attending Unavailab SOFIA Eduardo Attending Unavailab le LALITO BURRIS Attending Unavailable DAYTON, LALITO Hill Attending Unavailable RADHA BURRIS Referring Unavailable SHASHI PINA Attending Unavailable LALITO BURRIS Attending Unavailable MAMESHUKRI Gipson Referring Unavailable VITALIYYANDEL Attending Unavailable VITALIY, YANDEL Attending Unavailable MAME, SHUKRI Attending Unavailable HUNTER, EDDI Referring Unavailable HUNTER, EDDI Referring Unavailable HUNTER, EDDI Attending Unavailable HORANI, MIGUEL Admitting Unavailable HUNTER, EDDI Attending Unavailable FAWWADSHAIKH Referring Unavailable HORANI, MIGUEL Admitting Unavailable MADELYNLALITO Little Referring Unavailable MADELYNLALITO OSEGUERA Attending Unavailable FELIZMARGO Referring Unavailable FELIZ, MARGO Referring Unavailable AMEGEESYD Referring Unavailable HUNTER, EDDI Referring Unavailable MADELYNLALITO Referring Unavailable SILVANASHASHI Referring Unavailable HUNTER, EDDI Referring Unavailable HUNTER, EDDI Referring Unavailable ALGHOTHANI, MOHAMAD Referring Unavailable HUNTER, SAMIRI Referring Unavailable MAME, SHUKRI Attending Unavailable MAME, SHUKRI Attending Unavailable HUNTER, HANI Referring Unavailable PIRKL, GILBERT Referring Unavailable HUNTER, HANI Referring Unavailable ALGHANYTHCHANTELL, STEPHAND Referring Unavailable HUNTER, HANI Referring Unavailable SHUKRI VILCHIS Attending Unavailable MARÍA PEARL Referring Unavailable ABBY BERNSTEIN Attending Unavailable RADHA BURRIS Primary Care Unavailable ABBY BERNSTEIN Referring Unavailable RADHA BURRIS Primary Care Unavailable RADHA BURRIS Primary Care Unavailable SHELDON HUDSON Attending Unavailable ABBY BERNSTEIN Referring Unavailable Allergies Allergy Classification Reported Allergen(s) Allergy Type Date of Onset Reaction(s) Facility (20 sources) Amoxicillin; Translations: [amoxicillin] Drug Allergy 01-31-20 23 Unknown [facility] (20 sources) Penicillins; Translations: [Penicillins] drug allergy 09-13-19 [facility] Penicillin; Translations: [PENICILLIN] Drug Allergy 06-22-19 22 Unknown (qualifier value) [facility] (1 source) Penicillin Drug Allergy 11-05-19 20 [facility] Repository (20 sources) dofetilide; Translations: [Tikosyn CAPS] Drug Allergy 08-25-19 Other: See Comments, Unknown [facility] (20 sources) Penicillins Propensity to adverse reactions to drug 09-13-19 Unknown, Other [facility] Work Phone: (20 sources) Penicillins Drug Allergy 09-13-19 Unknown [facility] Work Phone: (3 sources) dofetilide; Translations: [Tikosyn] Drug Allergy 06-04-19 23 [facility] Repository (1 source) Penicillins Drug allergy (disorder) 07-29-19 15 [facility] Repository (10 sources) Vancomycin; Translations: [vancomycin] Drug Allergy 03-07-20 22 Hives [facility] Repository (20 sources) Vancomycin; Translations: [Vancomycin HCl CAPS] Drug Allergy 03-07-20 22 Anaphylaxis, Itching, Rash [facility] (8 sources) Vancomycin HCl in Dextrose SOLN; Translations: [Vancomycin HCl in Dextrose SOLN] Allergy to drug (finding) -[facility]tol[facility]olog [facility] Work Phone: (7 sources) Vancomycin; Translations: [VANCOMYCIN HCL] Drug Allergy 01-31-20 Unknown [facility] Work Phone: (7 sources) Vancomycin Hcl In Water; Translations: [VANCOMYCIN HCL IN WATER] Propensity to adverse reactions 01-31-20 Unknown [facility] Work Phone: (20 sources) dofetilide Drug Allergy 08-25-19 Dizziness, Unknown [facility] (1 source) dofetilide Drug Allergy 04-12-20 [facility] Repository (1 source) Penicillins Drug allergy (disorder) 03-20-20 [facility] Repository (1 source) Vancomycin Drug Allergy 04-12-20 [facility] Repository (4 sources) Penicillins Drug Allergy 09-13-19 Unknown [facility] Work Phone: Medications Current Medications Medication Drug Class(es) Dates Sig (Normalized) Sig (Original) acetaminophen 325 mg / HYDROcodone bitartrate 5 mg oral tablet (1 source) Opioid Agonist Start: 10-07-2024 End: 10-14-2024 take 1 tablet by mouth every four hours for pain [place] 325 mg-5 mg oral tablet 1 tab(s), Oral, q4hr for pain for 7 day(s), 24 tab(s), Refill(s) 0, [facility] [phone], 198, cm, 09/26/24 9:24:00 [...] Laxative, Vitamin C Start: 02-17-2024 End: 06-09-2024 CTW-BNi-ZfAx-NaSulf- Na Asc-C (Plenvu) 140 g reconstituted solution MLSDIRECTED Orally ASDIRECTED for 2 days 02/17/2024 06/09/2024 Discontinued (Therapy completed) Start: 02-17-2024 SID-DOy-IpCe-N aSulf-Na Asc-C (Plenvu) 140 g reconstituted solution [...] day for 90 days Apr, Active calcitriol 0.61430 mg oral capsule (20 sources) Vitamin D3 [...] Start: 05-22-2022 take 1 tablet by ana twice daily at mealtime calcium carbonate (Oscal) [...] 1 tablet by mouth once daily. Active Comment on above: Take 1 tablet [...] Take 1 tablet by ana once daily. clotrimazole 10 mg/ml topical cream (7 sources) Azole Antifungal Start: 01-13-20 24 End: 02-06-20 24 clotrimazole (Lotrimin) 1 % cream Indications: Dermatitis [...] Active Start: 11-06-2019 take 2 tablets by [facility] four times daily dilTIAZem (Cardizem) 30 mg immediate release tablet Take 2 tablets (60 mg) by mouth 4 times a day. 0 11/06/2019 Active take 2 capsules by [facility] in the morning dilTIAZem HCl ER Coated Beads 180 MG TAKE 2 CAPSULES BY MOUTH IN THE MORNING Oral for 90 Days Active take 1 capsule by [facility] every twenty-four hours dilTIAZem HCl ER 180 MG Oral Capsule Extended Release 24 Hour Quantity: 0 Refills: 0 Ordered: 17-Jul-2022 DO Active End: 01-05-2022 take 1 capsule by mouth once daily dilTIAZem (CARDIZEM 12 HR) 120 MG extended release capsule Take 120 mg by mouth daily 0 01/05/2022 Discontinued (Stop Taking at Discharge) Comment on above: Take [address] [facility] once daily. doxycycline hyclate 100 mg [...] Active Start: 09-13-2020 take 1 capsule by [facility] twice daily doxycycline hyclate 100 mg Cap 100 mg = 1 cap(s), Oral, BID, Refills(s) 0 Start Date: 09/13/20 Status: Ordered Repeat number: 1 ERENUMAB-AOOE SUBQ (2 sources) ERENUMAB-AOOE SHULTZ BQ Inject under the skin. 0 Active ergocalciferol 1.25 mg oral capsule (20 sources) Provitamin D2 Compound Start: 12-30-19 take 1 capsule by mouth every week ergocalciferol (Vitamin D2) 1.25 MG (61556 UT) capsule Indications: Hypocalcemia Take 1 capsule by mouth once a week 12 capsule 1 12/29/2024 Active Start: 08-10-2024 End: 01-25-2025 take 1 capsule by mouth every week ergocalciferol (Vitamin D-2) 1.25 MG (70172 UT) capsule Indications: Hypocalcemia Take 1 capsule (1.25 mg) by mouth 1 (one) time per week 12 capsule 1 08/10/2024 01/25/2025 Active Start: 10-08-2022 take 1 capsule by mo uth every week ergocalciferol (Vitamin D-2) 1.25 MG (14785 UT) capsule Take 1 capsule (1,250 mcg) by mouth 1 (one) time per week. 0 10/08/2022 Active Start: 01-10-2022 End: 12-24-2023 take 1 capsule by mouth every week Vitamin D (Ergocalciferol) 1.25 MG (09499 UT) Oral Capsule TAKE 1 CAPSULE BY MOUTH ONCE A WEEK Quantity: 12 Refills: 0 Ordered: 17-Jul-2022 DO Start : 10-Jan-2022 Active Vitamin D2 Activ e Comment on above: Take 50,000 Units by mouth one time a week. fluconazole 100 mg oral tablet (3 sources) Azole Antifungal Start: take 1 tablet by mouth once daily [...] onitrate (IMDUR) 30 MG CR tablet Isosorbide [place] itrate Not-Taking/PRN Isosorbide [place] itrate Not-Taking levothyroxine sodium 0.175 mg oral tablet (20 sources) l-Thyroxine Start: 12-30-2024 take 1 tablet by mouth three times weekly levothyroxine (Synthroid) 175 MCG tablet Indications: Acquired hypothyroidism Take 1 tablet (175 mcg) by mouth 3 (three) times a week Take on an empty stomach 36 tablet 12/30/2024 Active Start: 12-29-2024 take 1 tablet by ana th four times weekly levothyroxine (Synthroid, Levoxyl) 150 MCG tablet Indications: Acquired hypothyroidism TAKE 1 TABLET BY MOUTH FOUR TIMES A WEEK TAKE ON AN EMPTY STOMACH 48 tablet 12/29/2024 Active Start: 11-18-2024 End: 12-29-2024 take 1 tablet by mouth three times weekly levothyroxine (Synthroid) 175 MCG tablet Indications: Acquired hypothyroidism Take 1 tablet (175 mcg) by mouth 3 (three) times a week Take on an empty stomach 36 tablet 11/18/2024 12/29/2024 Discontinued (Reorder) Start: 09-25-2024 take 1 tablet by ana [...] stomach 36 tablet 09/02/2024 Active Start: 06-11-2024 End: 12-29-2024 take 1 tablet by mouth four times weekly levothyroxine (Synthroid) 150 MCG tablet Indications: Acquired hypothyroidism Take 1 tablet (150 mcg) by mouth 4 (four) times a week Take on an empty stomach 48 tablet 06/11/2024 12/29/2024 Discontinued Start: 06-11-2024 take 1 tablet by ana [...] DO Active take 1 tablet by ana once daily in the morning Synthroid 150 [...] 296 mL by mouth Daily Active magnesium lactate 84 mg extended release oral tablet (3 sources) take 1 tablet by mouth once daily magnesium lactate CR (Magtab) 84 MG (7MEQ) ER tablet Take 84 mg by mouth Daily Active magnesium oxide 250 [...] Start: 01-15-2020 take 1 capsule by mo [facility] once daily omeprazole (PRILOSEC) 40 MG [...] (10 sources) Pyrethroid Start: 02-10-20 End: 06-09-19 25 permethrin (Elimite) 5 % cream Indications: Dermatitis apply to skin from hairline to toes and wash off 8-10 hours later 60 g 02/10/2024 06/09/2024 Discontinued (Therapy completed) polyethylene glycol 3350 701611 mg / potassium chloride 2970 mg / sodium bicarbonate 6740 mg / sodium chloride 5860 mg / sodium sulfate 60402 mg powder for oral solution (7 sources) [...] Start: 01-15-2020 take 2 tablets by mo ut once daily in the evening pramipexole 1 [...] 550 MG PO Three times daily 42 14 February 19th, 2024 2:45pm sotalol hydrochloride 120 mg oral tablet [...] Comment on above: Take 1 capsule by mo ut once daily. apixaban 5 mg oral tablet [...] 11-06-2019 take 2 tablets by mo uth once daily benazepril (Lotensin) 5 mg tablet [...] : 21-Mar-2022 Active take 1 capsule by [facility] every twenty-four hours tamsulosin (Flomax) 0.4 [...] 2 12-31-2022 Episodic Conduction disorders (4 sources) Encounter for adjustment and management of other part of cardiac pacemaker; Translations: [Presence of cardiac pacemaker] Onset: 4 Chronic Congestive [...] 3 09-07-2022 Chronic Immunity disorders (1 source) [place] light chain disease; 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 specified disorders [...] 10-01-2022 Chronic Other aftercare (1 source) Other roasterman (current) drug therapy; Translations: [OTH CORRECTION CURRENT DRUG THERAPY] Onset: 3 Episodic Other aftercare (1 source) [facility] (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 of anticoagulants; Translations: [CORRECTION CURRNT USE ANTICOAGULANTS] Onset: 3 Episodic Other aftercare (4 sources) [facility] (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 of aspirin; Translations: [REPAIRING CALIBRATOR CURRENT USE OF ASPIRIN] Onset: 3 Episodic Other aftercare (1 source) Patient encounter status; Translations: [[facility] (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 of antithrombotics/antiplat elets] 09-07-2022 Episodic Other aftercare (2 sources) Long-term current use of aspirin; Translations: [[facility] (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 of aspirin] 09-07-2022 Episodic Other [...] [Hypotension, unspecified] 07-01-2020 Episodic Other circulatory disease (2 sources) Orthostatic [...] status] 10-17-2022 Episodic Other connective tissue disease (2 sources) Cramp; Translations: [Cramp and spasm] 12-25-2024 Episodic Other connective tissue disease (1 source) [...] sources) Palpitations; Translations: [Palpitations] Onset: 5 Episodic Complications of surgical procedures or medical [...] vomiting, unspecified] Onset: 2 Episodic Noninfectious gastroenteritis (13 sources) Noninfectious gastroenteritis; Translations: [Noninfective gastroenteritis and colitis, unspecified] Onset: 5 Resolved: 5 09-22-2024 Episodic Nonspecific chest pain (20 sources) Chest pain; Translations: [Chest pain, unspecified] Onset: 1 01-06-2020 Episodic Nutritional deficiencies (20 sources) Vitamin B12 deficiency (non anemic); Translations: [Deficiency of other specified B group vitamins] Onset: 1 10-01-2022 Episodic Other aftercare (1 source) [facility] (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 of antithrombotics/antipla telets; Translations: [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 (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 of antithrombotics/antipla telets] Onset: 3 Episodic Other and unspecified benign neoplasm (1 source) Polyp of stomach and duodenum; Translations: [Polyp of stomach and duodenum] Onset: 3 Episodic Other circulatory disease (20 sources) History of transient ischemic attack; Translations: [Personal history of transient ischemic attack (TIA), and cerebral infarction without residual deficits] Onset: 2 Episodic Other circulatory disease (5 sources) Orthostatic hypotension; Translations: [Orthostatic hypotension] Onset: 5 05-31-2023 Episodic Other connective tissue disease (3 sources) [...] Onset: 3 10-01-2022 Episodic Residual codes; unclassified (13 sources) Disorder of digestive tract; Translations: [Acquired [...] Test Name Value Interpretation Reference Range Facility CNOVon 01-07-2025 CNOV Office Visit (NREUS2 ) YOLI ANTUNEZ ([id number]) 1955 M Date Time Provider Department 01/07/25 4:00 PM SHELDON HUDSON NREUS2 During your visit today, we recorded the following information about you: Pulse Blood pressure 82/minute 122/84 Sheldon Hudson MD 01/07/2025 4:37 PM Signed [facility] PATIENT EVALUATION Recording using Blyk software for draft documentation of the visit was discussed with the patient/authorized field representative; all questions welcomed and answered. Patient/authorized field representative agreed to proceed Primary Movement Disorders Neurologist: Sheldon Hudson MD Primary Movement Disorders AQUILES: Not yet assigned Referring Provider: Abby Bernstein [id number] [facility] [address] Primary Care Provider: Radha Burris MD [facility] [facility] [phone] Dear Abby Bernstein: Thank you for referring Mr. Antunez to our clinic today. As you know he is a 69 year old right-handed male who is seen in consultation for evaluation of gait instability, dizziness, OH since 2021. He is seen alone. Subjective HISTORY OF PRESENT ILLNESS: Jamil Antunez is a 69-year-old male presenting for evaluation of balance issues, tremors, and weakness. Jamil reports a three-year history of progressive balance issues, tremors, and weakness. He describes a shuffling gait and experiences frequent dizziness, initially occurring during activities but now present even upon waking. He notes significant fluctuations in blood pressure, despite having a dual-purpose pacemaker. He does not report episodes of freezing while walking. He experiences occasional tremors, primarily in the right (dominant) hand, described as a nervous movement resembling the sensation of having his hand on a andreas. These tremors occur more frequently when his hands are relaxed. He also reports intermittent drooping of his eyelid. He notes difficulty with fine motor tasks such as buttoning, though he attributes this to aging. He does not endorse changes in handwriting size, and he does not report acting out dreams or experiencing hallucinations. He does not endorse urinary issues or constipation. He reports weakness in his hands and upper legs, more pronounced on the right side, which worsens with use. He also experiences severe leg pain every few nights, which recently required an ER visit for management. He has a history of restless leg syndrome. He reports some cognitive difficulties, particularly with recalling names and phone numbers, which he describes as requiring more effort than previously. He experiences ocular migraines with visual auras but does not report hallucinations. He does not endorse a family history of neurological conditions such as tremors, Parkinson's disease, or dementia. He notes that most males in his family did not live past 60 years of age. Past Diagnostic Results: - (06/2022) Brain MRI: Normal. Movement Disorders Medications Schedule - as of the start of the visit: Medications Questionnaires In addition, the following areas that may be affected by abnormal involuntary movements were evaluated: Daily activities Difficulties with eatin (none) Difficulties in dressin (none) Difficulties with hygiene activities: 0 (none) Difficulties with handwriting: Yes (moderate) Difficulties with doing hobbies and other activities: Yes (moderate) Difficulties turning in bed: Yes (slight) Difficulties getting out of bed, car or chair: Yes (slight) Tremors/Gait/Balance Shaking or tremors: 0 (none) Walking and balance problems: Yes (slight) Number of falls in the Last Month: Gait freezin (none) Autonomic/Pain Lightheadeness on standing: Yes (mild) Urinary problems: Yes (slight) Constipation problems: 0 (none) Pain and other sensations: Yes (moderate) Speech/Swallowing Speech problems: Yes (mild) Droolin (none) Chewing and swallowing problems: Yes (slight) Sleep/Fatigue Sleep problems: Yes (moderate) Daytime sleepiness: Yes (mild) Fatigue: Yes (slight) Mood/Behavior Depression: PHQ-9 Score: 2 usually representing no significant (0-4) depression. Anxiety: APRYL-7 Total Score: 0 usually representing no significant (0-4) anxiety. Finally, the following table shows the patient's overall global physical and mental health using the PROMIS scale: PROMIS-10 Flowsheet Row Office Visit from 01/07/2025 in [facility] Appointment from 01/04/2025 in [facility] Global Physical Health T Score 39.8 39.8 Global Mental Health T Score 45.8 45.8 0-10 Standard Pain Scale 3 3 *PROMIS-10 scoring scale: mean = 50, over 50 is above average, under 50 is below average ALLERGIES Allergen Reactions Penicillins Unknown Tikosyn [Dofetilide] Other: See Comments Aphasia, dizzy, muscle cramps V (more content not included)... Normal [facility] Office Visiton 12-31-2024 Follow-up visit [id number] Fr freda Antunez Jr. 1955 M Date Provider Department Center 12/31/2024 SHUKRI READ [facility] Family History Problem Relation Age of Onset Hypertension Mother Cancer Mother Stroke Mother Hypertension Father Aortic aneurysm Father Cancer Father Aortic aneurysm Paternal Grandfather Sudden Neg Hx Family Status - Relation Status Age at Mother Father Paternal Grandfather Neg Hx Level of Service:30862 TX OFFICE/OUTPATIENT ESTABLISHED MOD MDM 30 MIN Normal [facility] ACETYLCHOLINE REC BINDIN G ABon 12-16-2024 [facility] ACETYLCHOLINE BINDING, QUAL Negative Negative [facility] Comment on above: Anti-acetylcholine r eceptor binding antibody test is used as an aid in diagnosis of myasthenia gravis. A negative result cannot exclude myasthenia gravis. Clinical correlation is required. [facility] ACHR BIND AB SER-SCNC <0.02 NINF - 0.21 nmol/L [facility] Specimen Type: BLOOD SPECIMEN Ordering Facility: [facility] Address: [address] [place] [address] Original Ordering Provider: [facility] ACETYLCHOLINE REC BINDING AB on 12-15-2024 ACETYLCHOLINE BINDING, QUAL Negative Normal Negative [facility] Comment on above: Order Comment: Speci men Type: BLOOD SPECIMEN Ordering Facility: [facility] Address: [address] [place] [address] Result Comment: Anti -acetylcholine receptor binding antibody test is used as an aid in diagnosis of myasthenia gravis. A negative result cannot exclude myasthenia gravis. Clinical correlation is required. Performed By: #### A CHRAB #### [facility] CLIA [id number] [address] [place] [address] [place] Acetylcholine receptor binding Ab (S) [Moles/Vol] <0.02 Normal <0.21 [facility] Comment on above: Order Comment: Speci men Type: BLOOD SPECIMEN Ordering Facility: [facility] Address: [address] [place] [address] Performed By: #### A CHRAB #### [facility] CLIA [id number] [address] [place] [address] [facility] Leydi 12-15-2024 CNPN Telephone (NECTMN) YOLI ANTUNEZ ([id number]) 1955 M Date Time Provider Department 12/15/24 ABBY BERNSTEIN [facility] During your visit today, we recorded the following information about you: Shaylee Sweet 12/15/2024 11:39 AM Signed Type of record received: Labs Records received from: [facility] Records received via: Faxed Records scanned into [employer]: Yes Records have been forwarded to: [place] Allergies As of Date: 12/15/2024 Noted Allergy Reaction PENICILLINS 09/12/2000 16 - Unknown TIKOSYN (DOFETILIDE) 07/26/2022 14 - Other: See Comments Comments: Aphasia, dizzy, muscle cramps VANCOMYCIN 07/26/2022 10 - Anaphylaxis Date Reviewed: 11/10/2024 Reviewed by: Belle Carmona OCCA - Fully Assessed Reason for Visit: Received Outside Medical Records [6009] Prescriptions as of 12/16/2024 - sotalol (BETAPACE) [...] Encounter Status:Closed by SHAYLEE SWEET on 12/16/[address] [facility] CNOVon 11-10-2024 CNOV Office Visit (NENMMN ) YOLI ANTUNEZ ([id number]) 1955 M Date Time Provider Department 11/10/24 11:45 AM ABBY BERNSTEIN NEADRIAN During your visit today, we recorded the following information about you: Pulse Blood pressure Weight Height 83/minute 127/86 111.1 kg 1.981 m Abby Bernstein APRN.ORDER PACKER 11/10/2024 1:31 PM Signed [facility] Follow Up Yoli Antunez [...] He was seen by Dr. Vilchis at [facility] who would like to place a [...] spells at (more content not included)... Normal [facility] Orders Onlyon 11-06-2024 Orders Only [id number] Fr freda Antunez Jr. 1955 M Date Provider Department Center 11/06/2024 LALITO [facility]CDUFFIE [facility] CARD [facility] Family History Problem Relation Age of Onset Hypertension Mother Cancer Mother Stroke Mother Hypertension Father Aortic aneurysm Father Cancer Father Aortic aneurysm Paternal Grandfather Sudden Neg Hx Family Status - Relation Status Age at Mother Father Paternal Grandfather Neg Hx Normal [facility] Operative Reporton Operative Report Operative Report SURGERY [...] [facility] at which time general anesthesia was administered [...] and satisfactory condition. Hussain Quezada Dictated: 10/07/2024 [id number] Transcribed: 10/07/2024 Normal [facility] Comment on above: Result Comment: Elec tronically [...] antrostomy with excision Anesthesia type: General. Normal [facility] Comment on above: Result Comment: wron g folder Electronically Signed By: Lalito Burris DO\.br\Date and Time Signed: 10/07/24 14:43 EDT Orders Onlyon 10-13-2024 Orders Only [id number] Fr camden Antunezjordyn Tolbert 1955 M Date Provider Department Center 10/13/2024 895-CRISTINA CORRIGAN CARD [facility] Family History Problem Relation Age of Onset Hypertension Mother Cancer Mother Stroke Mother Hypertension Father Aortic aneurysm Father Cancer Father Aortic aneurysm Paternal Grandfather Sudden Neg Hx Family Status - Relation Status Age at Mother Father Paternal Grandfather Neg Hx Normal [facility] Surgical Pathology Reporton 10-13-2024 Surgical Pathology Report [facility] [address] [place] [address]- Surgical Pathology Report Collected Date/Time: 10/07/2024 14:44 EDT Pathologist: Mika VAZQUEZ PhD, Kulwant Hinojosa Received Date/Time: 10/08/2024 08:22 EDT [place] ALARCON, Lalito Burris DO, Lalito August Surgical Pathology Report - 10/13/2024 13:02 EDT [...] recognition technology and might contain unintended computerized content management consultant errors. Normal [facility] Comment on above: Performed By: #### 4 [id number] #### [facility] [address] [place] [address] Main OR Intraoperative Recor don 10-08-2024 Main OR Intraoperative Record Main OR Intraoperative Record IntraOp Document Type FT Summary Primary Physician: Lalito Burris DO Finalized Date/Time: 10/08/24 11:28:03 Pt. Name: HARMONY PAGEYOLI/Sex: 1955 Male Med Rec #: [id number] Physician: Lalito Burris DO Financial #: [id number] Pt. Type: A [facility] Admit/Disch: 10/07/24 11:04:48 - 10/07/24 17:10:00 Institution: [...] Nair Role Performed Anesthesiologist Surgeon - Primary [employer] Manager - Relief Client Services Director Time In 10/07/24 12:51:00 10/07/24 12:51:00 10/07/24 [...] [place] A Role Performed Scrub - Relief [employer] Manager - Primary Scrub - Primary Time In [...] Rj Grover CST, Harsha Fisher Kelsie E, [place], [place] A Time Out Complete 10/07/24 13:11:00 Outcomes Met? [...] Procedure) F (more content not included)... Normal [facility] Discharge Instructionson Discharge Instructions Discharge Instructions YOLI [...] physician. This Is Your Medications List acetaminophen-hydrocodone ([place] 325 mg-5 mg oral tablet) calcitriol (calcitriol [...] Follow Up with Lalito Burris When: Where: [address] [address] [phone] Business (1) Medications What How Much When Why Instructions Next Dose New acetaminophen-hydrocodone ([place] 325 mg-5 mg oral tablet) 1 Tablets By Mouth Every 4 hours as needed for for pain Acute post-operative pain Duration: 7 Days Pickup at [facility] 2759 Unchanged calcitriol (calcitriol 0.25 mcg Cap) 2 [...] Mouth 2 times a day Pharmacy Information [facility] 1429: [address] [place], [place] [phone] Test Results No qualifying data available. Allergies [...] High blood pressure Kidney disease Education Materials [place], [place] Lalito Burris, DO FUNCTIONAL ENDOSCOPIC SINUS SURGERY INFORMATION SHEET WHY DO I NEED FUNCTIONAL ENDOSCOPIC SINUS SURGERY? Your doctor has recommended functional endoscopic sinus surgery because maximum medical therapy (roasterman antibiotics, mucus thinners and nasal sprays) has [...] IN FUNCTIONAL (more content not included)... Normal [facility] Comment on above: Result Comment: Elec tronically [...] antrostomy with excision Anesthesia type: General. Normal [facility] Comment on above: Result Comment: Elec tronically Signed By: Lalito Burris DO\.br\Date and Time Signed: 10/07/24 14:43 EDT Inpatient Patient Summaryon 10-07-2024 Inpatient Patient Summary Inpatient Patient Summary [address] [address] [facility] Clinical Discharge Instructions PERSON INFORMATION Name: YOLI ANTUNEZ JR PHYSICIANS Admitting Physician: Lalito Burris DO Attending Physician: Lalito Burris DO PCP: RADHA BURRIS MD Discharge Diagnosis: Chronic right maxillary sinusitis; Nasal septal deviation Comment: PATIENT EDUCATION INFORMATION Instructions: [place]-Endoscopic Information 2 (Custom) Medication Leaflets: Follow up: With: Address: When: Lalito Burris [facility] [address], [address] [place] [id number] [phone] Business (1) MEDICATION LIST New Medications [facility]22, [address] [place] [phone], [phone] acetaminophen-hydrocodone ([place] 325 mg-5 mg oral tablet) 1 Tablets [...] By Mouth 2 times a day. Comment: Normal [facility] Main OR PACU I Recordon 09-20 Main OR PACU I Record Main OR PACU I Record PACU Phase I Document Type FT Summary Primary Physician: Lalito Burris DO Finalized Date/Time: 10/07/24 16:07:17 Pt. Name: YOLI ANTUNEZ JR./Sex: 1955 Male Med Rec #: [id number] Physician: Lalito Burris DO Financial #: [id number] Pt. Type: A [facility] Admit/Disch: 10/07/24 11:04:48 - Institution: Case Times [...] By: Radha Barry RN 10/07/24 16:07 Normal [facility] Main OR PACU II Recordon Main OR PACU II Record Main OR PACU II Record PACU Phase II Document Type FT Summary Primary Physician: Lalito Burris DO Finalized Date/Time: 10/07/24 17:19:40 Pt. Name: YOLI ANTUNEZ JR/Sex: 1955 Male Med Rec #: [id number] Physician: Lalito Burris DO Financial #: [id number] Pt. Type: A [facility] Admit/Disch: 10/07/24 11:04:48 - Institution: Case [...] By: Polly Salgado RN 10/07/24 17:19 Normal [facility] Main OR Preoperative Recordo n 10-07-2024 Main OR Preoperative Record Main OR Preoperative Record PreOp Document Type FT Summary Primary Physician: Lalito Burris DO Finalized Date/Time: 10/07/24 13:20:13 Pt. Name: YOLI ANTUNEZ JR/Sex: 1955 Male Med Rec #: [id number] Physician: Lalito Burris DO Financial #: [id number] Pt. Type: A Room/Bed: Admit/Disch: 10/07/24 11:04:48 - Institution: Case Times [...] Signed By: Trisha Mcleod 10/07/24 13:20 Normal [facility] Outpatient Surgery Discharge Instructionon 10-07-2024 Outpatient Surgery Discharge Instruction Outpatient Surgery Discharge Instruction [place] [id number] Patient Discharge Instructions PERSON INFORMATION Name: YOLI [...] Follow up: With: Address: When: Lalito Burris [facility] [address] [place] [phone] Business (1) Pharmacy Information: You may receive a survey from Mel Cavanaugh asking you to rate your care experience. Your feedback is important and will help us understand what we do well and how we can improve the quality of care we provide to you, your loved ones and our community. It???s an honor to serve you. Thank you for choosing [facility] HERE ARE THE MEDICATION CHANGES THAT OCCURRED DURING YOUR HOSPITAL STAY New Medications [facility], [address] [place], [place] [phone], [phone] acetaminophen-hydrocodone ([place] 325 mg-5 mg oral tablet) 1 Tablets [...] times a day. PATIENT EDUCATION INFORMATION Instructions: [place], [place] Lalito Burris, DO FUNCTIONAL ENDOSCOPIC SINUS SURGERY INFORMATION SHEET WHY DO I NEED FUNCTIONAL ENDOSCOPIC SINUS SURGERY? Your doctor has recommended functional endoscopic sinus surgery because maximum medical therapy (custodial antibiotics, mucus thinners and nasal sprays) has [...] Your d (more content not included)... Normal [facility] Office Visiton 10-01-2024 Follow-up visit [id number] Fr freda Antunez Jr. 1955 M Date Provider Department Center 10/01/2024 YANDEL VILLEGAS CARD [facility] Family History Problem Relation Age of Onset Hypertension Mother Cancer Mother Stroke Mother Hypertension Father Aortic aneurysm Father Cancer Father Aortic aneurysm Paternal Grandfather Sudden Neg Hx Family Status - Relation Status Age at Mother Father Paternal Grandfather Neg Hx Level of Service:75712 [place] OFFICE/OUTPATIENT ESTABLISHED MOD MDM 30 MIN Reason for Visit and Comments: Coronary Artery Disease [187] Chest Pain [636172] Hypotension [407] Atrial Fibrillation [80] Normal [facility] BMPon 09-25-2024 Anion gap [Moles/Vol] 12 mmol/L Normal 6-16 [facility] Comment on above: Performed By: #### 2 268625 #### [facility] [address] [place] [address] BUN/Creat Ratio 22 No Units High 10-20 [facility] Comment on above: Performed By: #### 2 767744 #### [facility] [address] [place] [address] Calcium [Mass/Vol] 8.0 mg/dL Low 8.9-11.1 [facility] Comment on above: Performed By: #### 2 357500 #### [facility] [address] [place] [address] Chloride [Moles/Vol] 106 mmol/L Normal 101-111 [facility] Comment on above: Performed By: #### 2 184486 #### [facility] [address] [place] [address] CO2 [Moles/Vol] 25 mmol/L Normal 21-31 [facility] Comment on above: Performed By: #### 2 011117 #### [facility] [address] [place] [address] Creatinine [Mass/Vol] 1.3 mg/dL Normal 0.5-1.3 [facility] Comment on above: Performed By: #### 2 241796 #### [facility] [address] [place] [address] Glucose [Mass/Vol] 86 mg/dL Normal 55-199 [facility] Comment on above: Performed By: #### 2 117696 #### [facility] [address] [place] [address] Potassium [Moles/Vol] 4.2 mmol/L Normal 3.5-5.3 [facility] Comment on above: Performed By: #### 2 811015 #### [facility] [address] [place] [address] Sodium [Moles/Vol] 139 mmol/L Normal 135-145 [facility] Comment on above: Performed By: #### 2 666871 #### [facility] [address] [place] [address] Urea nitrogen [Mass/Vol] 29 mg/dL High 5-21 [facility] Comment on above: Performed By: #### 2 928255 #### [facility] [address] [place] [address] CBC w/ Auto Diffon 5 Basophil Absolute 0.0 E9/L Normal 0.0-0.2 [facility] Comment on above: Performed By: #### 2 047528 #### [facility] [address] [place] [address] Basophils/100 WBC (Bld) 0.6 % Normal 0.0-2.0 [facility] Comment on above: Performed By: #### 2 911081 #### [facility] [address] [place] [address] Eos Absolute 0.2 E9/L Normal 0.0-0.5 [facility] Comment on above: Performed By: #### 2 788986 #### [facility] [address] [place] [address] Eosinophils/100 WBC (Bld) 4.0 % Normal 0.0-8.0 [facility] Comment on above: Performed By: #### 2 577857 #### [facility] [address] [place] [address] Erythrocyte distribution width (RBC) [Ratio] 14.4 % High 10.9-14.2 [facility] Comment on above: Performed By: #### 2 351874 #### [facility] [address] [place] [address] Hematocrit (Bld) [Volume fraction] 38.6 % Normal 37.7-49.0 [facility] Comment on above: Performed By: #### 2 043276 #### [facility] [address] [place] [address] Hemoglobin (Bld) [Mass/Vol] 12.8 g/dL Low 13.5-17.5 [facility] Comment on above: Performed By: #### 2 466679 #### [facility] [address] [place] [address] Lymph Absolute 1.7 E9/L Normal 1.0-4.0 [facility] Comment on above: Performed By: #### 2 041744 #### [facility] [address] [place] [address] Lymphocytes/100 WBC (Bld) 29.0 % Normal 14.0-50.0 [facility] Comment on above: Performed By: #### 2 724656 #### [facility] [address] [place] [address] MCH (RBC) [Entitic mass] 27.5 pg Normal 27.0-34.0 [facility] Comment on above: Performed By: #### 2 332846 #### [facility] [address] [place] [address] MCHC (RBC) [Mass/Vol] 33.3 g/dL Normal 31.4-36.0 [facility] Comment on above: Performed By: #### 2 457934 #### [facility] [address] [place] [address] MCV (RBC) [Entitic vol] 82.8 fL Normal 80.0-100.0 [facility] Comment on above: Performed By: #### 2 092937 #### [facility] [address] [place] [address] [place] Absolute 0.9 E9/L Normal 0.2-1.0 [facility] Comment on above: Performed By: #### 2 964247 #### [facility] [address] [place] [address] Monocytes/100 WBC (Bld) 14.4 % High 4.0-14.0 [facility] Comment on above: Performed By: #### 2 865065 #### [facility] [address] [place] [address] Neutro Absolute 3.1 E9/L Normal 2.0-7.5 [facility] Comment on above: Performed By: #### 2 117389 #### [facility] [address] [place] [address] Neutro Auto 52.0 % Normal 36.0-75.0 [facility] Comment on above: Performed By: #### 2 454864 #### [facility] [address] [place] [address] Platelet 202.0 E9/L Normal 150.0-500. 0 [facility] Comment on above: Performed By: #### 2 171533 #### [facility] [address] [place] [address] Platelet mean volume (Bld) [Entitic vol] 9.0 fL Normal 6.4-10.8 [facility] Comment on above: Performed By: #### 2 565105 #### [facility] [address] [place] [address] RBC 4.7 E12/L Normal 4.3-5.9 [facility] Comment on above: Performed By: #### 2 865003 #### [facility] [address] [place] [address] WBC 6.0 E9/L Normal 4.0-11.0 [facility] Comment on above: Performed By: #### 2 609618 #### [facility] [address] [place] [address] CHEMISTRYOrdered By: SYSTEM SYSTEM on 09-25-2024 Anion [...] 09-25-2024 eGFR 59 mL/min/1.73 m2 Normal >=59 [facility] Comment on above: Performed By: #### 1 [id number] ####[facility] [id number] [place] [address] 36on 09-08-2024 36 Regarding echo resul t from 09/01/2024: Yandel Shen, NEETU Cruz [place] Please let him know ECHO is good, things are unchanged/stable. Follow-up as scheduled or sooner if needed. Thanks! Patient informed. He has follow up with Harriet on 10/01/2024. Normal [facility] [place] ECHO DOPPLER COMPLETEon 0 09-02-2024 The [place] [id number] Cardiology Report Signed Patient: YOLI ANTUNEZ MR#: [id number] : 1955 Acct:[id number] Age/Sex: 69 / M ADM Date: 09/01/24 Loc: CARD Attending Dr: YANDEL SHEN APRN Ordering Physician: YANDEL SHEN APRN Date of Service: 09/01/24 Procedure(s): CA echo doppler complete Accession Number(s): [id number] cc: RADHA BURRIS ; YANDEL SHEN APRN Patient Name: YOLI ANTUNEZ MR#: [id number] : 1955 Exam Date: 09/01/2024 Ordering Doctor: YANDEL SHEN [facility] ECHOCARDIOGRAM REPORT PROCEDURE: CA ECHO DOPPLER [...] 09/02/2024 at 14 (more content not included)... [facility] Radiology, Radiologi MD mona - 09/02/2024 [place] [address] Cardiology Report Signed Patient: YOLI ANTUNEZ MR#: [id number] : 1955 Acct:[id number] Age/Sex: 69 / M ADM Date: 09/01/24 Loc: CARD Attending Dr: YANDEL SHEN APRN Ordering Physician: YANDEL SHEN APRN Date of Service: 09/01/24 Procedure(s): CA echo doppler complete Accession Number(s): [id number] cc: RADHA BURRIS ; YANDEL SHEN APRN Patient Name: YOLI ANTUNEZ MR#: [id number] : 1955 Exam Date: 09/01/2024 Ordering Doctor: [...] 14:50 Dictated By: MONO CHRISTIE Signed By: 09/02/241451 DD/ 49 TD/TT: Correctional Officer Chief: [facility] Radiology Study observation (narrative) [facility] CA ECHO DOPPLER COMPLETEOrde red By: Radiologist Radiology on 09-02-2024 [facility] [employer] Work Phone: CT Maxillofacial region WO a [...] signed in approved by the interpreting radiologist. [facility] [employer] Radiology Study observation (narrative) [facility] [employer] CT Maxillofacial region WO a nd W contrast IVOrdered By: Shamika Hung on 08-21-2024 [facility] [employer] Work Phone: CT SINUS WOon 08-21-2024 CT [...] Order Comment: DENTA L INFECTION ITPon 08-12-2024 [place] [address] Cardiac Rehab Report Signed Patient: YOLI ANTUNEZ MR#: [id number] : 1955 Acct:[id number] Age/Sex: 69 / M ADM Date: 06/26/24 Loc: CR Attending Dr: YANDEL SHEN APRN Ordering Physician: YANDEL SHEN APRN Date of Service: 08/03/24 Procedure(s): ITP Accession Number(s): [id number] cc: [facility] Test Date: 2024-08-03 Pat Name: YOLI ANTUNEZ Department: Room: - Gender: Male Director Telehealth: : 1955 Requested By: Yandel Shen Order Number: [id number] Josy MD: Adrian Russell Interpretive Statements Session Date: 08/03/2024 Patient stopping cardiac rehabilitation on his own. He is encouraged to re-enroll. Electronically Signed On 08-12-2024 10:34:15 EDT by Adrian Russell Dictated By: Adrian Russell D.O. Signed By: 08/12/24 1034 08/12/24 1034 DD/ 1216 TD/TT: Correctional Officer Chief: [facility] Radiology, Radiologi MD mona - 08/12/2024 [place] [address] Cardiac Rehab Report Signed Patient: YOLI ANTUNEZ MR#: [id number] : 1955 Acct:[id number] Age/Sex: 69 / M ADM Date: 06/26/24 Loc: CR Attending Dr: YANDEL SHEN APRN Ordering Physician: YANDEL SHEN APRN Date of Service: 08/03/24 Procedure(s): ITP Accession Number(s): [id number] cc: [facility] Test Date: 2024-08-03 Pat Name: YOLI ANTUNEZ Department: Room: - Gender: Male Director Telehealth: : 1955 Requested By: Yandel Shen Order Number: [id number] Josy MD: Adrian Russell Interpretive Statements Session Date: 08/03/2024 Patient stopping cardiac rehabilitation on his own. He is encouraged to re-enroll. Electronically Signed On 08-12-2024 10:34:15 EDT by Adrian Russell Dictated By: Adrian Russell D.O. Signed By: 08/12/24 1034 08/12/24 1034 DD/ 1216 TD/TT: Correctional Officer Chief: [facility] ITPOrdered By: Radiologist R adiology on 08-12-2024 [facility] [employer] Work Phone: MAGNESIUMon 08-04-2024 Magnesium [Mass/Vol] 2.3 mg/dL Normal 1.5-2.5 [facility] Comment on above: Order Comment: COLLE CTION KIT GIVEN TO PATIENT. PATIENT ADVISED TO RETURN. URINE VOLUME: NOTV Performed By: #### 1 6064, 32488, 172, 39166 #### [facility] [address], [address] [place] [phone] Taker Off Hemp Fiber: Janes Vasquez MD PTH, INTACT WITHOUT CALCIUMo n 08-04-2024 PARATHYROID HORMONE, INTACT 9 pg/mL Low 16-77 [facility] Comment on above: Result Comment: Interpretive Guide Intact PTH Calcium ------- Normal Parathyroid Normal Normal Hypoparathyroidism Low or Low Normal Low Hyperparathyroidism Primary Normal or High High Secondary High Normal or Low Tertiary High High Non-Parathyroid Hypercalcemia Low or Low Normal High Performed By: #### 1 7306, 31317, 622, 45426 #### [facility] [place] [address] Taker Off Hemp Fiber: Janes Vasquez MD RENAL FUNCTION PANELon 08-04 Albumin [Mass/Vol] 4.5 g/dL Normal 3.6-5.1 [facility] Comment on above: Performed By: #### 1 7306, 63282, 622, 94963 #### [facility] [place] [address] Taker Off Hemp Fiber: Janes Vasquez MD Calcium [Mass/Vol] 7.9 mg/dL Low 8.6-10.3 [facility] Comment on above: Performed By: #### 1 7306, 82723, 622, 91244 #### [facility] [place] [address] Taker Off Hemp Fiber: Janes Vasquez MD Chloride [Moles/Vol] 107 mmol/L Normal 98-110 [facility] Comment on above: Performed By: #### 1 7306, 31589, 622, 30811 #### [facility] [place] [address] Taker Off Hemp Fiber: Janes Vasquez MD CO2 [Moles/Vol] 24 mmol/L Normal 20-32 [facility] Comment on above: Performed By: #### 1 7306, 68131, 622, 40471 #### [facility] [place] [address] Taker Off Hemp Fiber: Janes Vasquez MD Creatinine [Mass/Vol] 1.53 mg/dL High 0.70-1.28 [facility] Comment on above: Performed By: #### 1 7306, 53230, 622, 25966 #### [facility] [place] [address] Taker Off Hemp Fiber: Janes Vasquez MD GFR/1.73 sq M.predicted among non-blacks MDRD (S/P/Bld) [Vol rate/Area] 48 mL/min/{1.73_m2} Low > OR = 60 [facility] Comment on above: Performed By: #### 1 7306, 19420, 622, 69693 #### [facility] [place] [address] Taker Off Hemp Fiber: Janes Vasquez MD Glucose [Mass/Vol] 142 mg/dL High 65-99 [facility] Comment on above: Result Comment: Fasting reference interval For someone without known diabetes, a glucose value >125 mg/dL indicates that they may have diabetes and this should be confirmed with a follow-up test. Performed By: #### 1 7306, 81190, 62, 56597 #### [facility] [place] [address] Taker Off Hemp Fiber: Janes Vasquez MD Phosphate [Mass/Vol] 4.3 mg/dL Normal 2.1-4.3 [facility] Comment on above: Performed By: #### 1 7306, 42501, 622, 92628 #### [facility] [place] [address] Taker Off Hemp Fiber: Janes Vasquez MD Potassium [Moles/Vol] 4.0 mmol/L Normal 3.5-5.3 [facility] Comment on above: Performed By: #### 1 7306, 96253, 622, 37367 #### [facility] [place] [address] Taker Off Hemp Fiber: Janes Vasquez MD Sodium [Moles/Vol] 141 mmol/L Normal 135-146 [facility] Comment on above: Performed By: #### 1 7306, 76576, 622, 89021 #### [facility] [place] [address] Taker Off Hemp Fiber: Janes Vasquez MD Urea nitrogen [Mass/Vol] 32 mg/dL High 7-25 [facility] Comment on above: Performed By: #### 1 7306, 51416, 622, 96788 #### [facility] [address], [address] [place] [address] Taker Off Hemp Fiber: Janes Vasquez MD Urea nitrogen/Creatinine [Mass ratio] 21 mg/mg Normal 6-22 [facility] Comment on above: Performed By: #### 1 7306, 12561, 622, 47385 #### [facility] [address], [address] [place] [address] Taker Off Hemp Fiber: Janes Vasquez MD VITAMIN D,25-[place],TOTAL,IAon 0 08-04-2024 [...] D, (D2,D3), LC/MS/MS is recommended: order code 42942 (patients >2yrs). See Note 1 Note 1 For additional information, please refer to http://education.[employer].Schoolfy/faq/PHB316 (This link is being provided for informational/ educational purposes only.) Performed By: #### 1 7306, 22938, 622, 85584 #### [facility] [address], [address] [place], [place] [id number] Taker Off Hemp Fiber: Janes Vasquez MD ITPon 08-03-2024 Radiology Study observation (narrative) [facility] MR BRAIN W AND WO [...] be warranted. Electronically signed: Osmel Quinn MD. [facility] Comment on above: Order Comment: ORDER IN [facility] 07-02-2024 [place] [address] Cardiac Rehab Report Signed Patient: YOLI ANTUNEZ MR#: [id number] : 1955 Acct:[id number] Age/Sex: 69 / M ADM Date: 06/26/24 Loc: CR Attending Dr: YANDEL SHEN APRN Ordering Physician: YANDEL SHEN APRN Date of Service: 07/02/24 Procedure(s): ITP Accession Number(s): [id number] cc: [facility] Test Date: 2024-07-02 Pat Name: YOLI ANTUNEZ Department: Room: - Gender: Male Director Telehealth: : 1955 Requested By: Yandel Shen Order Number: [id number] Reading MD: LARA OJEDA Interpretive Statements Session Date: Electronically Signed On 07-02-2024 22:37:32 EDT by LARA OJEDA Dictated By: Lara Ojeda D.O. Signed By: 07/02/24223607/02/242236 DD/ 37 TD/TT: Correctional Officer Chief: [facility] Radiology, Radiologi MD mona - 07/02/2024 [place] [address] Cardiac Rehab Report Signed Patient: YOLI ANTUNEZ MR#: [id number] : 1955 Acct:[id number] Age/Sex: 69 / M ADM Date: 06/26/24 Loc: CR Attending Dr: YANDEL SHEN APRN Ordering Physician: YANDEL SHEN APRN Date of Service: 07/02/24 Procedure(s): ITP Accession Number(s): [id number] cc: [facility] Test Date: 2024-07-02 Pat Name: YOLI ANTUNEZ Department: Room: - Gender: Male Director Telehealth: : 1955 Requested By: Yandel Shen Order Number: [id number] Reading MD: LARA OJEDA Interpretive Statements Session Date: Electronically Signed On 07-02-2024 22:37:32 EDT by LARA OJEDA Dictated By: Lara Ojeda D.O. Signed By: 07/02/24223607/02/242236 DD/ 37 TD/TT: Correctional Officer Chief: [facility] Radiology Study observation (narrative) [facility] ITPOrdered By: Radiologist R adiology on 07-02-2024 [facility] Work Phone: PTH, INTACT (ICMA) AND IONIZ ED CALCIUMon 06-17-2024 Calcium [Mass/Vol] 8.2 mg/dL Low 8.6-10.3 [facility] Comment on above: Performed By: #### 3 8836 #### [facility] [address], [address] [place] [phone] Taker Off Hemp Fiber: Janes Vasquez MD CALCIUM, IONIZED 4.5 mg/dL Low 4.7-5.5 [facility] Comment on above: Performed By: #### 3 2336 #### [facility] [address] [place] [address], [address] [place] [phone] Taker Off Hemp Fiber: Janes Vasquez MD PARATHYROID HORMONE, INTACT 10 pg/mL Low 16-77 [facility] Comment on above: Result Comment: Interpretive Guide Intact PTH Calcium ------- Normal Parathyroid Normal Normal Hypoparathyroidism Low or Low Normal Low Hyperparathyroidism Primary Normal or High High Secondary High Normal or Low Tertiary High High Non-Parathyroid Hypercalcemia Low or Low Normal High Performed By: #### 3 6736 #### [facility] [address], [address] [place] [phone] Taker Off Hemp Fiber: Janes Vasquez MD ITPon 06-04-2024 [place] [address] Cardiac Rehab Report Signed Patient: YOLI ANTUNEZ MR#: [id number] : 1955 Acct:[id number] Age/Sex: 69 / M ADM Date: 06/01/24 Loc: CR Attending Dr: YANDEL SHEN APRN Ordering Physician: YANDEL SHEN APRN Date of Service: 06/04/24 Procedure(s): ITP Accession Number(s): [id number] cc: [facility] Test Date: 2024-06-04 Pat Name: YOLI ANTUNEZ Department: Room: - Gender: Male Director Telehealth: : 1955 Requested By: Yandel Shen Order Number: [id number] Reading MD: LARA OJEDA Interpretive Statements Session Date: Electronically Signed On 06-04-2024 16:55:23 EST by LARA OJEDA Dictated By: Lara Ojeda D.O. Signed By: 06/04/24165406/04/24 165 DD/ 0734 TD/TT: Correctional Officer Chief: [facility] RadiologyEstela MD - 06/04/2024 [place] [address] Cardiac Rehab Report Signed Patient: YOLI ANTUNEZ MR#: [id number] : 1955 Acct:[id number] Age/Sex: 69 / M ADM Date: 06/01/24 Loc: CR Attending Dr: YANDEL SHEN APRN Ordering Physician: YANDEL SHEN APRN Date of Service: 06/04/24 Procedure(s): ITP Accession Number(s): [id number] cc: [facility] Test Date: 2024-06-04 Pat Name: YOLI ANTUNEZ Department: Room: - Gender: Male Director Telehealth: : 1955 Requested By: Yandel Shen Order Number: [id number] Reading MD: LARA OEJDA Interpretive Statements Session Date: Electronically Signed On 06-04-2024 16:55:23 EST by LARA OJEDA Dictated By: Lara Ojeda D.O. Signed By: 06/04/24165406/04/241654 DD/ TD/TT: Correctional Officer Chief: [facility] Radiology Study observation (narrative) [facility] ITPOrdered By: Radiologist R adiology on 06-04-2024 [facility] Work Phone: 36on 06-02-2024 36 Stiven in cardiac rehab made aware. He will address this tomorrow when patient sees them and he'll let me know. [facility] 36on 05-26-2024 36 I offered Ranexa, he was not interested as he tried it in the past and it did not work. We can offer it again. [facility] 36 Stiven in rehab made aw are. He wasn't able to tolerate Imdur, but would he benefit from Ranexa? [facility] 36on 05-25-2024 36 Yea, unfortunately n ot much further we can do. He's in rehab so that we can try to help improve his symptoms. [facility] 36 Stiven from [facility] Cardiac Rehab wanted you make you aware that patient is c/o daily chest pain and taking nitroglycerin daily. Stiven said patient doesn't seem concerned about this but he wanted to make us aware. I informed Stiven that unfortunately this is kind of Mr. Antunez's baseline. Any suggestions? Normal [facility] Telephoneon 05-25-2024 Telephone [id number] Fr freda Antunez Jr. 1955 M Date Provider Department Center 05/25/2024 HeydiMYJANESHIVANI ELLIS LEX [facility] Family History Problem Relation Age of Onset Hypertension Mother Cancer Mother Stroke Mother Hypertension Father Aortic aneurysm Father Cancer Father Aortic aneurysm Paternal Grandfather Sudden Neg Hx Family Status - Relation Status Age at Mother Father Paternal Grandfather Neg Hx Normal [facility] Office Visiton 04-28-2024 Follow-up visit [id number] Fr freda Antunez Jr. 1955 M Date Provider Department Center 04/28/2024 YANDEL VILLEGAS LEX [facility] Family History Problem Relation Age of Onset Hypertension Mother Cancer Mother Stroke Mother Hypertension Father Aortic aneurysm Father Cancer Father Aortic aneurysm Paternal Grandfather Sudden Neg Hx Family Status - Relation Status Age at Mother Father Paternal Grandfather Neg Hx Level of Service:70058 [place] OFFICE/OUTPATIENT ESTABLISHED MOD MDM 30 MIN Reason for Visit and Comments: Coronary Artery Disease [187] Atrial Fibrillation [80] Chest Pain [441831] Normal [facility] 36on 04-11-2024 36 Post Discharge Call Good afternoon, I am Ruben Lopez, RN a lead nurse from [facility]. I am calling you to follow up [...] like to discuss? No Patient Name Yoli Antunez Jr. Date 04/11/24 Normal [facility] Telephoneon 04-11-2024 Telephone [id number] Fr Harmony freda Tolbert Jr. 1955 M Date Provider Department Center 04/11/2024 [place]2-RUBEN LOPEZ [facility] Family History Problem Relation Age of Onset Hypertension Mother Cancer Mother Stroke Mother Hypertension Father Aortic aneurysm Father Cancer Father Aortic aneurysm Paternal Grandfather Sudden Neg Hx Family Status - Relation Status Age at Mother Father Paternal Grandfather Neg Hx Normal [facility] 30on 04-10-2024 30 The patient is Moder [...] and maintained or improved Outcome: Progressing Normal [facility] BASIC METABOLIC PANELon 12-2 Anion gap [Moles/Vol] 12 mmol/L Normal - [facility] Comment on above: Performed By: #### L AB15 #### [facility] ([facility]) [address] [place] [address] Calcium [Mass/Vol] 7.7 mg/dL Low 8.6-10.3 [facility] Comment on above: Performed By: #### L [id number] #### [facility] ([facility]) [address] [place] [address] Chloride [Moles/Vol] 106 mmol/L Normal 98-107 [facility] Comment on above: Performed By: #### L [id number] #### [facility] ([facility]) [address] [place] [address] CO2 [Moles/Vol] 26 mmol/L Normal 21-31 [facility] Comment on above: Performed By: #### L [id number] #### [facility] [address] [place] [address] Creatinine [Mass/Vol] 1.41 mg/dL High 0.70-1.30 [facility] Comment on above: Performed By: #### L [id number] #### [facility] ([facility]) [address] [place] [address] GLOMERULAR FILTRATION RATE ML/MIN/1.73 SQ M.PREDICTED 53.6 mL/min/1.73m*2 Low >60.0 [facility] Comment on above: Result Comment: [facility]???s estimated glomerular filtration rate (eGFR) will [...] #### L [id number] #### [facility] [address] [place] [address] Glucose [Mass/Vol] 85 mg/dL Normal 70-100 [facility] Comment on above: Performed By: #### L [id number] #### [facility] [address] [place] [address] Potassium [Moles/Vol] 4.2 mmol/L Normal 3.5-5.1 [facility] Comment on above: Performed By: #### L [id number] #### [facility] [address] [place] [address] Sodium [Moles/Vol] 140 mmol/L Normal 136-[address] [facility] Comment on above: Performed By: #### L [id number] #### [facility] ([facility]) [address] [place] [address] Urea nitrogen [Mass/Vol] 25 mg/dL Normal - [facility] Comment on above: Performed By: #### L [id number] #### [facility] ([facility]) [address] [place] [address] UREA NITROGEN/CREATININE (MASS RATIO) IN SER/PLAS 17.7 Normal [facility] Comment on above: Performed By: #### L [id number] #### [facility] ([facility]) [address] [place] [address] 30on 04-09-2024 30 Daily Case Managemen t [...] effective now Question: Room Service? Answer: Yes 04/09/24941 Physician Expected Discharge Date: 04/10/2024 Discharge Delays: PT Six Click Score: 24 OT Six Click Score: PT Recommendations: OT Recommendations: New Consults: Consult Orders (From admission, onward) Start Ordered 04/09/24 0919 Inpatient consult to Cardiology Once Specialty: Cardiology Provider: (Not yet assigned) Question Answer Comment [employer] CARDIOLOGY TEAM Reason for Consult? chest pain Level of Consultation Consultation and Management 04/09/24 0918 [facility] 30 The patient is Moder [...] and maintained or improved Outcome: Progressing Normal [facility] Abstracton 04-09-2024 Abstract [id number] Fr freda Antunez Jr. 1955 M Date Provider Department [place] 04/09/2024 3244-MARION MOSHER [facility] Family History Problem Relation Age of Onset Hypertension Mother Cancer Mother Stroke Mother Hypertension Father Aortic aneurysm Father Cancer Father Aortic aneurysm Paternal Grandfather Sudden Neg Hx Family Status - Relation Status Age at Mother Father Paternal Grandfather Neg Hx Normal [facility] BASIC METABOLIC PANELon 03-22 Anion gap [Moles/Vol] 12 mmol/L Normal 7-20 [facility] Comment on above: Performed By: #### L [id number] #### [facility] ([facility]) [address] [place] [address] Calcium [Mass/Vol] 7.6 mg/dL Low 8.6-10.3 [facility] Comment on above: Performed By: #### L [id number] #### [facility] ([facility]) [address] [place] [address] Chloride [Moles/Vol] 108 mmol/L High 98-107 [facility] Comment on above: Performed By: #### L [id number] #### [facility] ([facility]) [address] [place] [address] CO2 [Moles/Vol] 25 mmol/L Normal 21-31 [facility] Comment on above: Performed By: #### L [id number] #### [facility] ([facility]) [address] [place] [address] Creatinine [Mass/Vol] 1.34 mg/dL High 0.70-1.30 [facility] Comment on above: Performed By: #### L [id number] #### [facility] ([facility]) [address] [place] [address] GLOMERULAR FILTRATION RATE ML/MIN/1.73 SQ M.PREDICTED 57.0 mL/min/1.73m*2 Low >60.0 [facility] Comment on above: Result Comment: The [facility]???s estimated glomerular filtration rate (eGFR) will [...] #### L AB15 #### [facility] ([facility]) [address] [place] [address] Glucose [Mass/Vol] 86 mg/dL Normal 70-100 [facility] Comment on above: Performed By: #### L [id number] #### [facility] ([facility]) [address] [place] [address] Potassium [Moles/Vol] 4.1 mmol/L Normal 3.5-5.1 [facility] Comment on above: Performed By: #### L [id number] #### [facility] ([facility]) [address] [place] [address] Sodium [Moles/Vol] 141 mmol/L Normal 136-145 [facility] Comment on above: Performed By: #### L [id number] #### [facility] ([facility]) [address] [place] [address] Urea nitrogen [Mass/Vol] 27 mg/dL High 7-25 [facility] Comment on above: Performed By: #### L [id number] #### [facility] ([facility]) [address] [place] [address] UREA NITROGEN/CREATININE (MASS RATIO) IN SER/PLAS 20.1 Normal [facility] Comment on above: Performed By: #### L [id number] #### [facility] [address]) [place] [address] CONSULTon 04-09-2024 CONSULT ------- Attestation signed by [...] Teaching Physician's Revisions: none Erika Mesa MD [place] [facility] Cardiology Consult Note Reason for Consult: chest pain HPI: Yoli Antunez Jr. is a 68 y.o. male for primary hypertension, atrial fibrillation on sotalol status post watchman not on anticoagulation, sinus node dysfunction status post dual-chamber permanent pacemaker, coronary artery disease status post cardiac catheterization 08/2023, POTS who presented to [facility] ED with ongoing chest pain that has [...] -- - (more content not included)... Normal [facility] TROPONIN Ion 04-09-2024 Troponin I.cardiac [Mass/Vol] 0.00 ng/mL Normal 0.00-0.04 [facility] Comment on above: Performed By: #### L [id number] #### [facility] ([facility]ER) [address] [place] [address] Troponin I.cardiac [Mass/Vol] 0.00 ng/mL Normal 0.00-0.04 [facility] Comment on above: Performed By: #### L [id number] #### [facility] ([facility]) [address] [place] [address] 30on 04-08-2024 30 The patient is Moder ately Stable - Low risk of patient condition declining or worsening The patient's goals for the shift include COMFORT The clinical goals for the shift include VSS Normal [facility] 30 The patient is Moder ately Stable - Low risk of patient condition declining or worsening The patient's goals for the shift include COMFORT The clinical goals for the shift include VSS Normal [facility] APTTon 04-08-2024 ACTIVATED PARTIAL THROMBOPLASTIN TIME IN PPP BY COAGULATION ASSAY 31.1 Seconds Normal 25.0-35.0 [facility] Comment on above: Result Comment: Clin ical significance of the APTT is questionable in the presence of heparin. Performed By: #### L [id number] #### [facility] ([facility]) [address] [place] [address] B-TYPE NATRIURETIC PEPTIDEon 04-08-2024 Natriuretic peptide B (Bld) [Mass/Vol] 66 pg/mL Normal 0-100 [facility] Comment on above: Performed By: #### L [id number] ####[facility] ([facility])[address] [place] [address] BASIC METABOLIC PANELon 03-22 Anion gap [Moles/Vol] 13 mmol/L Normal 7-20 [facility] Comment on above: Performed By: #### L [id number] #### [facility] ([facility]) [address] [place] [address] Calcium [Mass/Vol] 8.3 mg/dL Low 8.6-10.3 [facility] Comment on above: Performed By: #### L [id number] #### [facility] ([facility]) [address] [place] [address] Chloride [Moles/Vol] 107 mmol/L Normal 98-107 [facility] Comment on above: Performed By: #### L [id number] #### [facility] ([facility]) [address] [place] [address] CO2 [Moles/Vol] 24 mmol/L Normal 21-31 [facility] Comment on above: Performed By: #### L [id number] #### [facility] ([facility]) [address] [place] [address] Creatinine [Mass/Vol] 1.60 mg/dL High 0.70-1.30 [facility] Comment on above: Performed By: #### L [id number] #### [facility] ([facility]) [address] [place] [address] GLOMERULAR FILTRATION RATE ML/MIN/1.73 SQ M.PREDICTED 46.1 mL/min/1.73m*2 Low >60.0 [facility] Comment on above: Result Comment: [facility]???s estimated glomerular filtration rate (eGFR) will [...] #### L AB15 #### [facility] ([facility]) [address] [place] [address] Glucose [Mass/Vol] 85 mg/dL Normal 70-100 [facility] Comment on above: Performed By: #### L [id number] #### [facility] ([facility]) [address] [place] [address] Potassium [Moles/Vol] 4.0 mmol/L Normal 3.5-5.1 [facility] Comment on above: Performed By: #### L [id number] #### [facility] ([facility]) [address] [place] [address] Sodium [Moles/Vol] 140 mmol/L Normal 136-145 [facility] Comment on above: Performed By: #### L [id number] #### [facility] ([facility]) [address] [place] [address] Urea nitrogen [Mass/Vol] 29 mg/dL High 7-25 [facility] Comment on above: Performed By: #### L [id number] #### [facility] [address] [place] [address] UREA NITROGEN/CREATININE (MASS RATIO) IN SER/PLAS 18.1 Normal [facility] Comment on above: Performed By: #### L [id number] #### [facility] ([facility]) [address] [place] [address] CBC WITH AUTO DIFFERENTIALon 04-08-2024 Basophils (Bld) [#/Vol] 0.05 10*3/uL Normal 0.00-0.20 [facility] Comment on above: Performed By: #### L [id number] #### [facility] ([facility]) [address] [place] [address] Basophils/100 WBC (Bld) 0.7 % Normal 0.0-1.0 [facility] Comment on above: Performed By: #### L [id number] #### [facility] ([facility]) [address] [place] [address] Eosinophils (Bld) [#/Vol] 0.24 10*3/uL Normal 0.00-0.50 [facility] Comment on above: Performed By: #### L [id number] #### [facility] ([facility]) [address] [place] [address] Eosinophils/100 WBC (Bld) 3.6 % Normal 0.0-6.0 [facility] Comment on above: Performed By: #### L [id number] #### [facility] ([facility]) [address] [place] [address] Erythrocyte distribution width (RBC) [Ratio] 15.5 % High 11.5-15.0 [facility] Comment on above: Performed By: #### L [id number] #### [facility] [address] [place] [address] ERYTHROCYTE MEAN CORPUSCULAR HEMOGLOBIN CONCENTRATION (G/DL) BY AUTOMATED 32.6 g/dL Normal 32.0-35.0 [facility] Comment on above: Performed By: #### L [id number] #### [facility] [address] [place] [address] Hematocrit (Bld) [Volume fraction] 42.7 % Normal 39.0-55.0 [facility] Comment on above: Performed By: #### L [id number] #### [facility] ([facility]) [address] [place] [address] Hemoglobin (Bld) [Mass/Vol] 13.9 g/dL Normal 13.0-17.0 [facility] Comment on above: Performed By: #### L [id number] #### [facility] ([facility]) [address] [place] [address] Immature granulocytes (Bld) [#/Vol] 0.05 10*3/uL Normal 0.00-0.20 [facility] Comment on above: Performed By: #### L [id number] #### [facility] ([facility]) [address] [place] [address] Immature granulocytes/100 WBC (Bld) 0.7 % Normal 0.0-1.0 [facility] Comment on above: Performed By: #### L [id number] #### [facility] ([facility]) [address] [place] [address] Lymphocytes (Bld) [#/Vol] 1.73 10*3/uL Normal 1.20-4.00 [facility] Comment on above: Performed By: #### L [id number] #### [facility] ([facility]) [address] [place] [address] Lymphocytes/100 WBC (Bld) 25.7 % Normal 20.0-45.0 [facility] Comment on above: Performed By: #### L [id number] #### [facility] [address] [address] MCH (RBC) [Entitic mass] 28.1 pg Normal 27.0-33.0 [facility] Comment on above: Performed By: #### L [id number] #### [facility] [address] [place] [address] MCV (RBC) [Entitic vol] 86.3 fL Normal 82.0-98.0 [facility] Comment on above: Performed By: #### L [id number] #### [facility] ([facility]) [address] [place] [address] Monocytes (Bld) [#/Vol] 0.58 10*3/uL Normal 0.10-1.00 [facility] Comment on above: Performed By: #### L [id number] #### [facility] ([facility]) [address] [place] [address] Monocytes/100 WBC (Bld) 8.6 % Normal 5.0-12.0 [facility] Comment on above: Performed By: #### L [id number] #### [facility] ([facility]) [address] [place] [address] Neutrophils (Bld) [#/Vol] 4.09 10*3/uL Normal 1.60-7.60 [facility] Comment on above: Performed By: #### L [id number] #### [facility] ([facility]) [address] [place] [address] Neutrophils/100 WBC (Bld) 60.7 % Normal 40.0-72.0 [facility] Comment on above: Performed By: #### L [id number] #### [facility] ([facility]) [address] [place] [address] NRBC (PER 100 WBCS) BY AUTOMATED COUNT 0.0 % Normal 0 [facility] Comment on above: Performed By: #### L [id number] #### [facility] ([facility]) [address] [place] [address] PLATELETS (10*3/UL) IN BLOOD AUTOMATED COUNT 215 10*3/uL Normal 150-400 [facility] Comment on above: Performed By: #### L [id number] #### [facility] [address] [place] [address] RBC (Bld) [#/Vol] 4.95 10*6/uL Normal 4.20-5.70 [facility] Comment on above: Performed By: #### L [id number] #### [facility] (BEAKER) [address] [place] [address] WBC (Bld) [#/Vol] 6.74 10*3/uL Normal 4.00-10.60 [facility] Comment on above: Performed By: #### L [id number] #### [facility] ([facility]AKER) [address] [place] [address] CTA CHEST W IV CONTRASTon CTA CHEST [...] reasonably achievable. Electronically signed: Jeramie Gleason. Normal [facility] D-DIMER, QUANTITATIVEon 03-22 FIBRIN D-DIMER (UG/L FEU) IN PLATELET POOR PLASMA 0.27 mcg/mL FEU Normal 0.27-0.49 [facility] Comment on above: Order Comment: D-Dim er values of less than 0.50 ug/ml (FEU) are considered to be a negative predictor of thrombosis. However, the D-Dimer result should be used in conjunction with pretest probability and should not be used alone to diagnose a thrombotic event. Performed By: #### L [id number] ####[facility] (BEAKER)[address] [place] [address] EDNURSon 04-08-2024 EDNURS Pt has complaints of CP and SOB for the past week. Pt has hx of afib and has a pacemaker. Pt states that MD had a concerning EKG and wanted the pt to get checked out. Normal [facility] EDPROVon 04-08-2024 EDPROV History of Present [...] SOB, and light headedness. Pt states his manager document control performed an EKG and he had acute [...] MR HEAD ANGIO WO IV CONTRAST 07/09/2022 [facility] MR IMAGING MR NECK ANGIO WO IV CONTRAST 07/09/2022 MR NECK ANGIO WO IV CONTRAST 07/09/2022 [facility] MR IMAGING NECK SURGERY THYROIDECTOMY Family [...] Diagnosis includes but is not limited to CT, PE, costochondritis. Plan of Care: XR chest 1 view, CBC and differential, Basic metabolic panel, Troponin I, CBC auto differential, Protime-INR, APTT, B-type natriuretic peptide, D-dimer, quantitati (more content not included)... Normal [facility] Office Visiton 04-08-2024 Follow-up visit [id number] Fr freda Antunez Jr. 1955 M Date Provider Department Center 04/08/2024 [facility]-SHUKRI VILCHIS [facility] Family History Problem Relation Age of Onset Hypertension Mother Cancer Mother Stroke Mother Hypertension Father Aortic aneurysm Father Cancer Father Aortic aneurysm Paternal Grandfather Sudden Neg Hx Family Status - Relation Status Age at Mother Father Paternal Grandfather Neg Hx Level of Service:34507 [place] OFFICE/OUTPATIENT ESTABLISHED MOD [facility] 30 MIN Reason for Visit and Comments: Follow-up [510882] - Dizziness shortness of breath Normal [facility] PROTIME-INRon 04-08-2024 INR IN PPP BY COAGULATION ASSAY 1.03 Normal 0.90-1.10 [facility] Comment on above: Result Comment: ACCC [...] 1995;[id number]. Performed By: #### L [id number] ####[facility] ([facility])[address] [place] [address] PROTHROMBIN TIME (PT) IN PPP BY COAGULATION ASSAY 13.5 Seconds Normal 12.3-14.8 [facility] Comment on above: Performed By: #### L [id number] ####[facility] ([facility])[address] [place] [address] TROPONIN Ion 04-08-2024 Troponin I.cardiac [Mass/Vol] 0.00 ng/mL Normal 0.00-0.04 [facility] Comment on above: Performed By: #### L [id number] ####[facility] ([facility])[address] [place] [address] Troponin I.cardiac [Mass/Vol] 0.01 ng/mL Normal 0.00-0.04 [facility] Comment on above: Performed By: #### L [id number] #### [facility] ([facility]) [address] [place] [address] C. DIFFICILE PCRon 4 C. DIFFICILE PCR Negative [facility] Healthcare [facility] Healthcare Abstracton 03-11-2024 Abstract [id number] Fr freda Antunez Jr. 1955 M Date Provider Department [place] 03/11/2024 3244-MARION MOSHER Deniz [facility] Family History Problem Relation Age of Onset Hypertension Mother Cancer Mother Stroke Mother Hypertension Father Aortic aneurysm Father Cancer Father Aortic aneurysm Paternal Grandfather Sudden Neg Hx Family Status - Relation Status Age at Mother Father Paternal Grandfather Neg Hx Normal [facility] Office Visiton 03-11-2024 Follow-up visit [id number] JeseniahenryFr freda Tolbert . 1955 M Date Provider Department Center 03/11/2024 SHUKRI READ Family History Problem Relation Age of Onset Hypertension Mother Cancer Mother Stroke Mother Hypertension Father Aortic aneurysm Father Cancer Father Aortic aneurysm Paternal Grandfather Sudden Neg Hx Family Status - Relation Status Age at Mother Father Paternal Grandfather Neg Hx Level of Service:45290 [place] OFFICE/OUTPATIENT ESTABLISHED MOD MDM 30 MIN Normal [facility] Abstracton 02-26-2024 Abstract [id number] HarmonyFr freda Tolbert 1955 M Date Provider Department Center [facility] Family History Problem Relation Age of Onset Hypertension Mother Cancer Mother Stroke Mother Hypertension Father Aortic aneurysm Father Cancer Father Aortic aneurysm Paternal Grandfather Sudden Neg Hx Family Status - Relation Status Age at Mother Father Paternal Grandfather Neg Hx Normal [facility] Office Visiton 02-26-2024 Follow-up visit [id number] Fr Harmony freda Tolbert . 1955 M Date Provider Department Center 02/26/2024 SHUKRI READ Denizmakeda Wright Family History Problem Relation Age of Onset Hypertension Mother Cancer Mother Stroke Mother Hypertension Father Aortic aneurysm Father Cancer Father Aortic aneurysm Paternal Grandfather Sudden Neg Hx Family Status - Relation Status Age at Mother Father Paternal Grandfather Neg Hx Level of Service:20146 [place] OFFICE/OUTPATIENT ESTABLISHED MOD MDM 30 MIN Normal [facility] Office Visiton 02-04-2024 Follow-up visit [id number] HarmonyFr freda Tolbert . 1955 M Date Provider Department Center 02/04/2024 L[facility]O [facility] LEX [facility] Family History Problem Relation Age of Onset Hypertension Mother Cancer Mother Stroke Mother Hypertension Father Aortic aneurysm Father Cancer Father Aortic aneurysm Paternal Grandfather Sudden Neg Hx Family Status - Relation Status Age at Mother Father Paternal Grandfather Neg Hx Level of Service:85487 [place] OFFICE/OUTPATIENT ESTABLISHED LOW MDM 20 MIN Normal [facility] 36on 01-31-2024 36 Post Discharge Call Good morning, I am Giulia Proctor, RN a lead nurse from [facility]. I am calling you to follow up [...] Name Yoli Tolbert Harmony Isidro Date 01/31/24 Normal [facility] Orders Onlyon 01-31-2024 Orders Only [id number] Fr freda Antunez Jr. 1955 M Date Provider Department [place] 01/31/2024 [facility] Family History Problem Relation Age of Onset Hypertension Mother Cancer Mother Stroke Mother Hypertension Father Aortic aneurysm Father Cancer Father Aortic aneurysm Paternal Grandfather Sudden Neg Hx Family Status - Relation Status Age at Mother Father Paternal Grandfather Neg Hx Normal [facility] Telephoneon 01-31-2024 Telephone [id number] Fr freda Antunez Jr. 1955 M Date Provider Department Center 01/31/2024 1603-GIULIA PROCTOR [facility] Family History Problem Relation Age of Onset Hypertension Mother Cancer Mother Stroke Mother Hypertension Father Aortic aneurysm Father Cancer Father Aortic aneurysm Paternal Grandfather Sudden Neg Hx Family Status - Relation Status Age at Mother Father Paternal Grandfather Neg Hx Reason for Visit and Comments: Hospital Follow-up [832] - Hospital follow up Normal [facility] 30on 01-30-2024 30 The patient is Moder [...] and maintained or improved Outcome: Progressing Normal [facility] BASIC METABOLIC PANELon 10 Anion gap [Moles/Vol] 10 mmol/L Normal 7-20 [facility] Comment on above: Performed By: #### L [id number] ####[facility] ([facility]AKER)[address] [place] [address] Calcium [Mass/Vol] 7.2 mg/dL Low 8.6-10.3 [facility] Comment on above: Performed By: #### L [id number] ####[facility] ([facility]AKER)[address] [place] [address] Chloride [Moles/Vol] 110 mmol/L High 98-107 [facility] Comment on above: Performed By: #### L [id number] ####[facility] ([facility]ER)[address] [place] [address] CO2 [Moles/Vol] 24 mmol/L Normal 21-31 [facility] Comment on above: Performed By: #### L [id number] ####[facility] ([facility] [place] [address] Creatinine [Mass/Vol] 1.21 mg/dL Normal 0.70-1.30 [facility] Comment on above: Performed By: #### L [id number] ####[facility] ([facility])[address] [place] [address] GLOMERULAR FILTRATION RATE ML/MIN/1.73 SQ M.PREDICTED 64.4 mL/min/1.73m*2 Normal >60.0 [facility] Comment on above: Result Comment: The [facility]???s estimated glomerular filtration rate (eGFR) will [...] individuals. Performed By: #### L [id number] ####[facility] ([facility])[address] [place] [address] Glucose [Mass/Vol] 77 mg/dL Normal 70-100 [facility] Comment on above: Performed By: #### L [id number] ####[facility] ([facility])[address] [place] [address] Potassium [Moles/Vol] 3.6 mmol/L Normal 3.5-5.1 [facility] Comment on above: Performed By: #### L [id number] ####[facility] ([facility])[address] [place] [address] Sodium [Moles/Vol] 140 mmol/L Normal 136-145 [facility] Comment on above: Performed By: #### L [id number] ####[facility] [place] [address] Urea nitrogen [Mass/Vol] 29 mg/dL High 7-25 [facility] Comment on above: Performed By: #### L [id number] ####[facility] (BEAKER)[address] [place] [address] UREA NITROGEN/CREATININE (MASS RATIO) IN SER/PLAS 24.0 Normal [facility] Comment on above: Performed By: #### L [id number] ####[facility] (BEAKER)[address] [place] [address] CONSULTon 01-30-2024 CONSULT [place] Electrophysiology Consult Note Reason for visit: Afib [...] had A-fib ablation by [facility] in [place] with PVI plus posterior box isolation was [...] MR HEAD ANGIO WO IV CONTRAST 07/09/2022 [facility] MR IMAGING MR NECK ANGIO WO IV CONTRAST 07/09/2022 MR NECK ANGIO WO IV CONTRAST 07/09/2022 [facility] MR IMAGING NECK SURGERY THYROIDECTOMY SH: [...] Year: No Utilities: Not At Risk (01/27/2024) [facility] Utilities Threatened with loss of utilities: No [...] by mo (more content not included)... Normal [facility] MAGNESIUMon 01-30-2024 Magnesium [Mass/Vol] 1.9 mg/dL Normal 1.9-2.7 [facility] Comment on above: Performed By: #### L [id number] #### [facility] ([facility]) [address] [place] [address] 30on 01-29-2024 30 The patient is Moder [...] baseline comfort level Outcome: Progressing Flowsheets (Taken 01/29/2024 2101) Verbalizes/displays adequate comfort level or baseline comfort [...] and behaviors that affect risk of falls [place] fall precautions as indicated by assessment Educate [...] conditions and prevent exacerbation or deterioration Normal [facility] 30 Daily Case Managemen t Update Multidisciplinary [...] of Consultation Consultation and Management 01/29/24 0806 Normal [facility] 30 The patient is Moder ately Stable - Low risk of patient condition declining or worsening The patient's goals for the shift include comfort The clinical goals for the shift include hemodynamically stable Problem: Pain - Adult Goal: Verbalizes/displays adequate comfort level or baseline comfort level Outcome: Progressing Problem: Safety - Adult Goal: Free from fall injury Outcome: Progressing Flowsheets (Taken 01/29/2024710) Free from fall injury: Assess patient frequently for physical needs Identify cognitive and physical deficits and behaviors that affect risk of falls Problem: Discharge Planning Goal: Discharge to home or other facility with appropriate resources Outcome: Progressing Problem: Chronic Conditions and Co-morbidities Goal: Patient's chronic conditions and co-morbidity symptoms are monitored and maintained or improved Outcome: Progressing Normal [facility] 30 The patient is Moder ately [...] and behaviors that affect risk of falls [place] fall precautions as indicated by assessment Educate [...] or improved Outcome: Progressing Flowsheets (Taken 01/29/2024 0202) Care Plan - Patient's Chronic Conditions and Co-Morbidity Symptoms are Monitored and Maintained or Improved: Monitor and assess patient's chronic conditions and comorbid symptoms for stability, deterioration, or improvement Collaborate with multidisciplinary team to address chronic and comorbid conditions and prevent exacerbation or deterioration Normal [facility] BASIC METABOLIC PANELon 10-0 Anion gap [Moles/Vol] 11 mmol/L Normal 7-20 [facility] Comment on above: Performed By: #### L [id number] #### [facility] ([facility]) [address] [place] [address] Calcium [Mass/Vol] 7.3 mg/dL Low 8.6-10.3 [facility] Comment on above: Performed By: #### L [id number] #### [facility] (BEAKER) [address] [place] [address] Chloride [Moles/Vol] 108 mmol/L High 98-107 [facility] Comment on above: Performed By: #### L [id number] #### [facility] ([facility]AKER) [address] [place] [address] CO2 [Moles/Vol] 26 mmol/L Normal 21-31 [facility] Comment on above: Performed By: #### L [id number] #### [facility] ([facility]AKER) [address] [place] [address] Creatinine [Mass/Vol] 1.38 mg/dL High 0.70-1.30 [facility] Comment on above: Performed By: #### L [id number] #### [facility] (BEAKER) [address] [place] [address] GLOMERULAR FILTRATION RATE ML/MIN/1.73 SQ M.PREDICTED 55.0 mL/min/1.73m*2 Low >60.0 [facility] Comment on above: Result Comment: The [facility]???s estimated glomerular filtration rate (eGFR) will [...] group of individuals. Performed By: #### L [id number] #### [facility] ([facility]) [address] [place] [address] Glucose [Mass/Vol] 95 mg/dL Normal 70-100 [facility] Comment on above: Performed By: #### L [id number] #### [facility] ([facility]) [address] [place] [address] Potassium [Moles/Vol] 3.9 mmol/L Normal 3.5-5.1 [facility] Comment on above: Performed By: #### L [id number] #### [facility] ([facility]) [address] [place] [address] Sodium [Moles/Vol] 141 mmol/L Normal 136-145 [facility] Comment on above: Performed By: #### L [id number] #### [facility] ([facility]) [address] [place] [address] Urea nitrogen [Mass/Vol] 31 mg/dL High 7-25 [facility] Comment on above: Performed By: #### L [id number] #### [facility] ([facility]) [address] [place] [address] UREA NITROGEN/CREATININE (MASS RATIO) IN SER/PLAS 22.5 Normal [facility] Comment on above: Performed By: #### L [id number] #### [facility] ([facility]) [address] [place] [address] MAGNESIUMon 01-29-2024 Magnesium [Mass/Vol] 1.9 mg/dL Normal 1.9-2.7 [facility] Comment on above: Performed By: #### L [id number] #### [facility] (BEAKER) [address] [place] [address] 30on 01-28-2024 30 Daily Case Managemen t [...] Consult Orders (From admission, onward) Start Ordered 01/27/24 192 Inpatient consult to Cardiology Once Specialty: Cardiology Provider: (Not yet assigned) Question Answer Comment Consulting Group CARDIOLOGY TEAM Reason for Consult? unstable angina Level of Consultation Consultation and Management 01/27/24 192 Normal [facility] 30 The patient is Moder ately Stable - Low risk of patient condition declining or worsening The patient's goals for the shift include The clinical goals for the shift include VSS, safety [facility] 30 The patient is Moder ately Stable - Low risk of patient condition declining or worsening The patient's goals for the shift include The clinical goals for the shift include VSS, safety [facility] BASIC METABOLIC PANELon Anion gap [Moles/Vol] 11 mmol/L Normal - [facility] Comment on above: Performed By: #### L [id number] ####[facility] (BEAKER)[address] [place] [address] Calcium [Mass/Vol] 7.3 mg/dL Low 8.6-10.3 [facility] Comment on above: Performed By: #### L [id number] ####[facility] ([facility])[address] [place] [address] Chloride [Moles/Vol] 108 mmol/L High 98-107 [facility] Comment on above: Performed By: #### L [id number] ####[facility] ([facility])[address] [place] [address] CO2 [Moles/Vol] 25 mmol/L Normal 21-31 [facility] Comment on above: Performed By: #### L [id number] ####[facility] ([facility])[address] [place] [address] Creatinine [Mass/Vol] 1.35 mg/dL High 0.70-1.30 [facility] Comment on above: Performed By: #### L [id number] ####[facility] ([facility])[address] [place] [address] GLOMERULAR FILTRATION RATE ML/MIN/1.73 SQ M.PREDICTED 56.5 mL/min/1.73m*2 Low >60.0 [facility] Comment on above: Result Comment: The [facility]???s estimated glomerular filtration rate (eGFR) will [...] individuals. Performed By: #### L [id number] ####[facility] ([facility])[address] [place] [address] Glucose [Mass/Vol] 87 mg/dL Normal 70-100 [facility] Comment on above: Performed By: #### L [id number] ####[facility] ([facility])[address] [place] [address] Potassium [Moles/Vol] 4.1 mmol/L Normal 3.5-5.1 [facility] Comment on above: Performed By: #### L [id number] ####[facility] (BEAKER)[address] [place] [address] Sodium [Moles/Vol] 140 mmol/L Normal 136-145 [facility] Comment on above: Performed By: #### L [id number] ####[facility] (BEAKER)[address] [place] [address] Urea nitrogen [Mass/Vol] 28 mg/dL High 7-25 [facility] Comment on above: Performed By: #### L [id number] ####[facility] (BEAKER)[address] [place] [address] UREA NITROGEN/CREATININE (MASS RATIO) IN SER/PLAS 20.7 Normal [facility] Comment on above: Performed By: #### L [id number] ####[facility] (BEAKER)[address] [place] [address] CBCon 01-28-2024 Erythrocyte distribution width (RBC) [Ratio] 14.8 % Normal 11.5-15.0 [facility] Comment on above: Performed By: #### L [id number] ####[facility] (BEAKER)[address] [place] [address] ERYTHROCYTE MEAN CORPUSCULAR HEMOGLOBIN CONCENTRATION (G/DL) BY AUTOMATED 31.6 g/dL Low 32.0-35.0 [facility] Comment on above: Performed By: #### L [id number] ####[facility] (BEAKER)[address] [place] [address] Hematocrit (Bld) [Volume fraction] 47.4 % Normal 39.0-55.0 [facility] Comment on above: Performed By: #### L [id number] ####[facility] (BEAKER)[address] [place] [address] Hemoglobin (Bld) [Mass/Vol] 15.0 g/dL Normal 13.0-17.0 [facility] Comment on above: Performed By: #### L [id number] ####[facility] [place] [address] MCH (RBC) [Entitic mass] 27.2 pg Normal 27.0-33.0 [facility] Comment on above: Performed By: #### L [id number] ####[facility] ([facility])[address] [place] [address] MCV (RBC) [Entitic vol] 85.9 fL Normal 82.0-98.0 [facility] Comment on above: Performed By: #### L [id number] ####[facility] ([facility])[address] [place] [address] PLATELETS (10*3/UL) IN BLOOD AUTOMATED COUNT 218 10*3/uL Normal 150-400 [facility] Comment on above: Performed By: #### L [id number] ####[facility] ([facility])[address] [place] [address] RBC (Bld) [#/Vol] 5.52 10*6/uL Normal 4.20-5.70 [facility] Comment on above: Performed By: #### L [id number] ####[facility] [place] [address] WBC (Bld) [#/Vol] 9.98 10*3/uL Normal 4.00-10.60 [facility] Comment on above: Performed By: #### L [id number] ####[facility] [place] [address] CONSULTon 01-28-2024 CONSULT ------- Attestation signed by Rashid Hendricks MD at 01/28/2024 4:46 PM (Updated) I personally saw and examined the patient on the same date of service as resident/fellow Dr Reece. I discussed the findings and therapeutic plan with the resident/fellow Dr Reece. I agree with the documentation, except for any edits/updates below. Teaching Physician's Revisions: None Patient was transferred from [facility] because of chest pain and atrial fibrillation [...] anti-ischemic drugs particularly Ranexa Rashid Hendricks MD, [facility] Cardiology Consult Note Reason for Consult: Atrial Flutter HPI: Yoli Antunez Jr. is a 68 y.o. male with PMHx of A-fib s/p watchman and 3 ablation, hypertension, hypothyroidism, CKD Stage 3, POTS, CAD s/p PCI, Sick Sinus Syndrome s/p PPM, and aneurysm of ascending aorta presents as a direct admission from [facility] with a chief complaint of chest pain. [...] cigars. H (more content not included)... Normal [facility] MAGNESIUMon 01-28-2024 Magnesium [Mass/Vol] 1.9 mg/dL Normal 1.9-2.7 [facility] Comment on above: Performed By: #### L [id number] #### [facility] ([facility]) [address] [place] [address] TROPONIN Ion 01-28-2024 Troponin I.cardiac [Mass/Vol] 0.00 ng/mL Normal 0.00-0.04 [facility] Comment on above: Performed By: #### L [id number] #### [facility] ([facility]) [address] [place] [address] Troponin I.cardiac [Mass/Vol] 0.00 ng/mL Normal 0.00-0.04 [facility] Comment on above: Performed By: #### L [id number] #### [facility] ([facility]) [address] [place] [address] Troponin I.cardiac [Mass/Vol] 0.00 ng/mL Normal 0.00-0.04 [facility] Comment on above: Performed By: #### L [id number] ####[facility] ([facility])[address] [place] [address] TSH3 REFLEX TO FT4on 024 THYROTROPIN (MIU/L) IN SER/PLAS BY DETECTION LIMIT <= 0.05 MIU/L 1.63 mIU/L Normal 0.34-5.60 [facility] Comment on above: Performed By: #### L [id number] ####[facility] ([facility])[address] [place] [address] B-TYPE NATRIURETIC PEPTIDEon 01-27-2024 Natriuretic peptide B (Bld) [Mass/Vol] 243 pg/mL High 0-100 [facility] Comment on above: Performed By: #### L [id number] ####[facility] ([facility])[address] [place] [address] CBC WITH AUTO DIFFERENTIALon 01-27-2024 Basophils (Bld) [#/Vol] 0.05 10*3/uL Normal 0.00-0.20 [facility] Comment on above: Performed By: #### L [id number] ####[facility] ([facility])[address] [place] [address] Basophils/100 WBC (Bld) 0.5 % Normal 0.0-1.0 [facility] Comment on above: Performed By: #### L [id number] ####[facility] ([facility])[address] [place] [address] Eosinophils (Bld) [#/Vol] 0.18 10*3/uL Normal 0.00-0.50 [facility] Comment on above: Performed By: #### L [id number] ####[facility] ([facility])[address] [place] [address] Eosinophils/100 WBC (Bld) 1.8 % Normal 0.0-6.0 [facility] Comment on above: Performed By: #### L [id number] ####[facility] ([facility])[address] [place] [address] Erythrocyte distribution width (RBC) [Ratio] 14.6 % Normal 11.5-15.0 [facility] Comment on above: Performed By: #### L [id number] ####[facility] ([facility])[address] [place] [address] ERYTHROCYTE MEAN CORPUSCULAR HEMOGLOBIN CONCENTRATION (G/DL) BY AUTOMATED 33.1 g/dL Normal 32.0-35.0 [facility] Comment on above: Performed By: #### L [id number] ####[facility] [place] [address] Hematocrit (Bld) [Volume fraction] 45.0 % Normal 39.0-55.0 [facility] Comment on above: Performed By: #### L [id number] ####[facility] (BEAKER)[address] [place] [address] Hemoglobin (Bld) [Mass/Vol] 14.9 g/dL Normal 13.0-17.0 [facility] Comment on above: Performed By: #### L [id number] ####[facility] ([facility])[address] [place] [address] Immature granulocytes (Bld) [#/Vol] 0.08 10*3/uL Normal 0.00-0.20 [facility] Comment on above: Performed By: #### L [id number] ####[facility] ([facility])[address] [place] [address] Immature granulocytes/100 WBC (Bld) 0.8 % Normal 0.0-1.0 [facility] Comment on above: Performed By: #### L [id number] ####[facility] ([facility])[address] [place] [address] Lymphocytes (Bld) [#/Vol] 1.92 10*3/uL Normal 1.20-4.00 [facility] Comment on above: Performed By: #### L [id number] ####[facility] ([facility] [place] [address] Lymphocytes/100 WBC (Bld) 18.7 % Low 20.0-45.0 [facility] Comment on above: Performed By: #### L [id number] ####[facility] [place] [address] MCH (RBC) [Entitic mass] 28.2 pg Normal 27.0-33.0 [facility] Comment on above: Performed By: #### L [id number] ####[facility] (BEAKER)[address] [place] [address] MCV (RBC) [Entitic vol] 85.1 fL Normal 82.0-98.0 [facility] Comment on above: Performed By: #### L [id number] ####[facility] ([facility])[address] [place] [address] Monocytes (Bld) [#/Vol] 0.95 10*3/uL Normal 0.10-1.00 [facility] Comment on above: Performed By: #### L [id number] ####[facility] ([facility]ER)[address] [place] [address] Monocytes/100 WBC (Bld) 9.3 % Normal 5.0-12.0 [facility] Comment on above: Performed By: #### L [id number] ####[facility] ([facility])[address] [place] [address] Neutrophils (Bld) [#/Vol] 7.09 10*3/uL Normal 1.60-7.60 [facility] Comment on above: Performed By: #### L [id number] ####[facility] ([facility])[address] [place] [address] Neutrophils/100 WBC (Bld) 68.9 % Normal 40.0-72.0 [facility] Comment on above: Performed By: #### L [id number] ####[facility] ([facility]ER)[address] [place] [address] NRBC (PER 100 WBCS) BY AUTOMATED COUNT 0.0 % Normal 0 [facility] Comment on above: Performed By: #### L [id number] ####[facility] ([facility])[address] [place] [address] PLATELETS (10*3/UL) IN BLOOD AUTOMATED COUNT 233 10*3/uL Normal 150-400 [facility] Comment on above: Performed By: #### L [id number] ####[facility] ([facility])[address] [place] [address] RBC (Bld) [#/Vol] 5.29 10*6/uL Normal 4.20-5.70 [facility] Comment on above: Performed By: #### L [id number] ####[facility] ([facility]ER)[address] [place] [address] WBC (Bld) [#/Vol] 10.27 10*3/uL Normal 4.00-10.60 [facility] Comment on above: Performed By: #### L [id number] ####[facility] ([facility]ER)[address] [place] [address] COMPREHENSIVE METABOLIC PANE Julian 01-27-2024 Albumin [Mass/Vol] 4.0 g/dL Normal 3.5-5.7 [facility] Comment on above: Performed By: #### L [id number] #### [facility] ([facility]) [address] [place] [address] ALP [Catalytic activity/Vol] 57 U/L Normal 34-104 [facility] Comment on above: Performed By: #### L [id number] #### [facility] ([facility]) [address] [place] [address] ALT [Catalytic activity/Vol] 25 U/L Normal 7-52 [facility] Comment on above: Performed By: #### L [id number] #### [facility] ([facility]) [address] [place] [address] Anion gap [Moles/Vol] 12 mmol/L Normal 7-20 [facility] Comment on above: Performed By: #### L [id number] #### [facility] ([facility]) [address] [place] [address] AST [Catalytic activity/Vol] 16 U/L Normal 13-39 [facility] Comment on above: Performed By: #### L [id number] #### [facility] ([facility]) [address] [place] [address] Bilirubin [Mass/Vol] 0.6 mg/dL Normal 0.3-1.0 [facility] Comment on above: Performed By: #### L [id number] #### [facility] ([facility]) [address] [place] [address] Calcium [Mass/Vol] 7.3 mg/dL Low 8.6-10.3 [facility] Comment on above: Performed By: #### L [id number] #### [facility] ([facility]) [address] [place] [address] Chloride [Moles/Vol] 106 mmol/L Normal 98-107 [facility] Comment on above: Performed By: #### L [id number] #### [facility] ([facility]) [address] [place] [address] CO2 [Moles/Vol] 24 mmol/L Normal 21-31 [facility] Comment on above: Performed By: #### L [id number] #### [facility] ([facility]) [address] [place] [address] Creatinine [Mass/Vol] 1.28 mg/dL Normal 0.70-1.30 [facility] Comment on above: Performed By: #### L [id number] #### [facility] ([facility]) [address] [place] [address] GLOMERULAR FILTRATION RATE ML/MIN/1.73 SQ M.PREDICTED 60.2 mL/min/1.73m*2 Normal >60.0 [facility] Comment on above: Result Comment: The [facility]???s estimated glomerular filtration rate (eGFR) will [...] group of individuals. Performed By: #### L [id number] #### [facility] ([facility]) [address] [place] [address] Glucose [Mass/Vol] 81 mg/dL Normal 70-100 [facility] Comment on above: Performed By: #### L [id number] #### [facility] ([facility]) [address] [place] [address] Potassium [Moles/Vol] 3.8 mmol/L Normal 3.5-5.1 [facility] Comment on above: Performed By: #### L [id number] #### [facility] ([facility]) [address] [place] [address] Protein [Mass/Vol] 6.7 g/dL Normal 6.0-8.3 [facility] Comment on above: Performed By: #### L [id number] #### [facility] ([facility]) [address] [place] [address] Sodium [Moles/Vol] 138 mmol/L Normal 136-145 [facility] Comment on above: Performed By: #### L [id number] #### [facility] ([facility]) [address] [place] [address] Urea nitrogen [Mass/Vol] 29 mg/dL High 7-25 [facility] Comment on above: Performed By: #### L [id number] #### [facility] ([facility]) [address] [place] [address] UREA NITROGEN/CREATININE (MASS RATIO) IN SER/PLAS 22.7 Normal [facility] Comment on above: Performed By: #### L [id number] #### [facility] ([facility]) [address] [place] [address] MAGNESIUMon 01-27-2024 Magnesium [Mass/Vol] 1.9 mg/dL Normal 1.9-2.7 [facility] Comment on above: Performed By: #### L [id number] ####[facility] ([facility])[address] [place] [address] PHOSPHORUSon 01-27-2024 Magnesium [Mass/Vol] 5.6 mg/dL High 2.5-5.0 [facility] Comment on above: Performed By: #### L [id number] #### [facility] ([facility]) [address] [place] [address] PROTIME-INRon 01-27-2024 INR IN PPP BY COAGULATION ASSAY 1.12 High 0.90-1.10 [facility] Comment on above: Result Comment: ACCC [...] 1995;108:231S-246S. Performed By: #### L [id number] #### [facility] ([facility]) [address] [place] [address] PROTHROMBIN TIME (PT) IN PPP BY COAGULATION ASSAY 14.4 Seconds Normal 12.3-14.8 [facility] Comment on above: Performed By: #### L [id number] #### [facility] ([facility]) [address] [place] [address] TROPONIN Ion 01-27-2024 Troponin I.cardiac [Mass/Vol] 0.00 ng/mL Normal 0.00-0.04 [facility] Comment on above: Performed By: #### L [id number] #### [facility] ([facility]) [address] [place] [address] Blood Urea Nitrogenon 2023 Urea nitrogen [Mass/Vol] 27 mg/dL High 7-25 [facility] Comment on above: Order Comment: STAT FOR ct Performed By: #### C RESUDHIR, BUN #### [facility] [address] [place] [address] [facility] [address] abdomen pelvis w conon CT abdomen pelvis w con [facility] [place] [address] [place] [id number] Scan Report Signed Patient: Yoli Antunez Jr MR#: [id number] : 1955 Acct:[id number] Age/Sex: 68 / M ADM Date: 06/10/23 Loc: CT Room: Type: [facility] Attending Dr: Charlene Soria MD Copies to: [...] Aide Banks M.D.06/10/2023 4:04 PM Dictation Location: [facility]--10 Transcribed By: [facility] 06/10/23 1604 Dictated By: Aide Banks MD 06/10/23 1550 Signed By: 06/10/23 1604 Normal [facility] Creatinineon 06-10-2023 Creatinine [Mass/Vol] 1.28 mg/dL Normal 0.70-1.30 [facility] Comment on above: Order Comment: STAT FOR ct Performed By: #### C DANYA, BUN #### [facility] [address] [place] [address] [place] GFR/1.73 sq M.predicted MDRD (S/P/Bld) [Vol rate/Area] mL/min/{1.73_m2} Normal [facility] Comment on above: Order Comment: STAT FOR ct Result Comment: PERF ORMED BY: [place] [address] PATHOLOGIST [employer] PRODUCER ABDOUL ORR M.D. Performed By: #### C DANYA, BUN #### [facility] [address] [place] [address] [place] Creatinine [Mass/volume] in Serum or PlasmaOrdered By: Charlene Soria on 06-10-2023 Creatinine [Mass/Vol] 1.28 mg/dL 0.70-1.30 [facility] No Panel InformationOrdered By: Charlene Soria on 06-10-2023 Estimated GFR (CKD-EPI) > 60.0 mL/Min [facility] Creatinine Clearance (Chem N/A [facility] Urea nitrogen [Mass/volume] in Serum or PlasmaOrdered By: Charlene Soria on 06-10-2023 Urea nitrogen [Mass/Vol] 27 mg/dL 7 [facility] ALL KAPPA/LAMBDA FREE SERUMo n 06-01-2023 [facility] KAPPA LC FREE SER-MCNC 30.6 mg/L High 3.3 - 19.4 mg/L [facility] Comment on above: Rarely, increased se rum free light chains levels may not be detected or accurately quantified due to prozone phenomenon or in high viscosity samples using this immunoturbidimetric assay. Correlation with other laboratory results and clinical findings is recommended. The [place] Free Light Chain was performed using the Binding Site Optilite immunoturbidimetric method. Result obtained with different assay methods or kits cannot be used interchangeably. [facility] KAPPA LC/LAMBDA SER 1.72 High 0.26 - 1.65 [facility] LAMBDA LC FREE SERPL-MCNC 17.8 mg/L 5.7 - 26.3 mg/L [facility] Comment on above: Rarely, increased [...] Interpretation and review of laboratory results Abnormal [facility] Specimen Type: BLOOD SPECIMEN Ordering Facility: [facility] Address: [address] [place] [address] Original Ordering Provider: MARÍA CORTES [facility] Julian 04-16-2023 L ------- Specimen: [id number] Received: 04/16/23 Status: NIKHIL Bautista Num: [id number] Spec Type: Surgical Subm Dr: Charlene Soria MD Tissues: A Colon Biopsy (RANDOM COLON BX) B Colon Biopsy (ASC POLYP) Procedures: HE/4, Gross/Micro L4/2 Age/ Patient Sex Location Account Attending Physician Yoli Antunez Jr/[facility] [id number] Charlene Soria MD SPEC NUM: [id number] RECD: 04/16/23 STATUS: NIKHIL HARSHIL NUM: [id number] RENAN: 04/16/23- SUBM DR: Charlene Soria MD ENTERED: 04/16/23 [facility] DR: [place] TYPE: Surgical DEPT: S ORDERED: [...] submitted in one cassette labeled B1. Specimen: [id number] Received: 04/16/23 Status: NIKHIL Bautista Num: [id number] Spec Type: Surgical Subm Dr: Charlene Soria MD Tissues: A Colon Biopsy (RANDOM COLON BX) B Colon Biopsy (ASC POLYP) Procedures: HE/4, Gross/Micro L4/2 Patient: Yoli Antunez Jr [id number] (Continued) Specimen: [id number] Received: 04/16/23 (Continued) Signed (signature on file) Dony Duenas MD 04/17/23 2229 Specimen: [id number] Received: 04/16/23 Status: NIKHIL Bautista Num: [id number] Spec Type: Surgical Subm Dr: Charlene Soria MD Tissues: A Colon Biopsy (RANDOM COLON BX) B Colon Biopsy (ASC POLYP) Procedures: HE/4, Gross/Micro L4/2 Patient: Yoli Antunez Jr [id number] (Continued) Specimen: [id number] Received: 04/16/23 (Continued) Microscopic Description A. Two H E slides reviewed. The microscopic examination confirms the diagnosis. B. Two H E slides reviewed. The microscopic examination confirms the diagnosis. CPT Codes 55202l6 Specimen: [id number] Received: 04/16/23 Status: NIKHIL Bautista Num: [id number] Spec Type: Surgical Subm Dr: Charlene Soria MD Tissues: A Colon Biopsy (RANDOM COLON BX) B Colon Biopsy (ASC POLYP) Procedures: HE/Ragini, Gross/Micro L4/2 Patient: Yoli Antunez Jr [id number] (Continued) Signed (signature on file) Dony Duenas MD 04/17/232 [facility] CT ABDOMEN PELVIS W IV CONTR [place] 02-01-2023 CT ABDOMEN PELVIS W IV CONTRAST Interpreted By: Miguel Conrad, STUDY: CT ABDOMEN PELVIS W IV CONTRAST; 02/01/2023 2:11 pm INDICATION: Signs/Symptoms:worsening LLQ abdominal pain and watery diarrhea. COMPARISON: None. ACCESSION NUMBER(S): [id number] ORDERING CLINICIAN: YOSSI CHEN TECHNIQUE: CT of [...] Miguel Conrad 02/01/2023 2:52 PM Dictation workstation: [id number] [facility] CT Abdomen and Pelvis W cont rast Candace 02-01-2023 1. No acute intra-ab dominal or pelvic pathology. 2. Uncomplicated colonic diverticulosis. 3. Trace hiatal hernia. 4. Scattered splenic calcific granulomas likely sequelae of chronic granulomatous infection. MACRO: None Signed by: Miguel Conrad 02/01/2023 2:52 PM Dictation workstation: [id number] Interpreted By: Miguel Palmer, STUDY: CT ABDOMEN PELVIS W IV CONTRAST; 02/01/2023 2:11 pm INDICATION: Signs/Symptoms:worsening LLQ abdominal pain and watery diarrhea. COMPARISON: None. ACCESSION NUMBER(S): [id number] ORDERING CLINICIAN: YOSSI CHEN TECHNIQUE: CT of [...] and watery diarrhea. COMPARISON: None. ACCESSION NUMBER(S): [id number] ORDERING CLINICIAN: YOSSI CHEN TECHNIQUE: CT of [...] Miguel Conrad 02/01/2023 2:52 PM Dictation workstation: [id number] [facility] Work Phone: Radiology Study observation (narrative) [facility] Work Phone: CT Abdomen and Pelvis W cont rast IVOrdered By: Miguel Conrad on 02-01-2023 [facility] Work Phone: Gastrointestinal pathogens i dentifiedon 02-01-2023 [...] Rotavirus RNA Not Detected Normal Not Detected [facility] Comment on above: Performed By: #### 7 9390-1 #### RENÉ Hinojosa ([id number]) [facility] ([facility]) [id number] [place] [address] Basic metabolic 2000 panelon 10-12-2023 Anion gap [Moles/Vol] 12 mmol/L Normal 10-20 [facility] Comment on above: Performed By: #### 2 4321-2 #### MAYELIN Hill ([id number]) [facility] ([facility]) [address] [place] [address] Calcium [Mass/Vol] 7.2 mg/dL Low 8.6-10.3 [facility] Comment on above: Performed By: #### 2 4321-2 #### MAYELIN Hill ([address]) [facility] ([facility]) [address] [place] [address] Chloride [Moles/Vol] 106 mmol/L Normal 98-107 [facility] Comment on above: Performed By: #### 2 4321-2 #### MAYELIN Hill ([id number]) [facility] ([facility]) [address] [place] [address] CO2 [Moles/Vol] 28 mmol/L Normal 21-32 [facility] Comment on above: Performed By: #### 2 4321-2 #### MAYELIN Hill ([address]) [facility] ([facility]) [address] [place] [address] Creatinine [Mass/Vol] 1.65 mg/dL High 0.50-1.30 [facility] Comment on above: Performed By: #### 2 4321-2 #### MAYELIN Hill (59120) [facility] ([facility]) [address] [place] [address] GFR/1.73 sq M.predicted MDRD (S/P/Bld) [Vol rate/Area] 45 mL/min/1.73m*2 Low >60 [facility] Comment on above: Result Comment: Calc ulations of estimated GFR are performed using the 2020 CKD-EPI Study Refit equation without the race variable for the IDMS-Traceable creatinine methods. https://jasn.asnjournals.org/content//ASN.8508019 988 Performed By: #### 2 4321-2 #### MAYELIN Hill ([id number]) [facility] ([facility]) [address] [place] [address] Glucose [Mass/Vol] 83 mg/dL Normal 74-99 [facility] Comment on above: Performed By: #### 2 4321-2 #### MAYELIN Hill ([id number]) [facility] ([facility]) [address] [place] [address] Potassium [Moles/Vol] 4.3 mmol/L Normal 3.5-5.3 [facility] Comment on above: Performed By: #### 2 4321-2 #### MAYELIN Hill ([id number]) [facility] ([facility]) [address] [place] [address] Sodium [Moles/Vol] 142 mmol/L Normal 136-145 [facility] Comment on above: Performed By: #### 2 4321-2 #### MAYELIN Hill (72601) [facility] ([facility]) [address] [place] [address] Urea nitrogen [Mass/Vol] 25 mg/dL High 6-23 [facility] Comment on above: Performed By: #### 2 4321-2 #### MAYELIN Hill (32008) [facility] ([facility]) [address] [place] [address] Follow Up (General Surgery)o n 12-13-2022 Follow Up (General Surgery) Diagnoses/Problems H/O hiatal hernia (V12.79) (Z87.19) Patient Discussion/Summary followup as needed Provider Impressions Patient continues to do well. He was reassured; followup as needed Chief Complaint Patient is here for follow up History of Present [id number] patient who underwent laparoscopic hiatal hernia repair [...] BY MOUTH TWICE DAILY WITH MEALS Pyridostigmine [place] 60 MG Oral TabletTAKE 1 TABLET BY [...] Oral Tablet Vitamin D (Ergocalciferol) 1.25 MG (17055 UT) Oral CapsuleTAKE 1 CAPSULE BY MOUTH ONCE A WEEK Physical Exam abd: soft, non-distended, minimal tenderness over LUQ incision Signatures Electronically signed by : Yossi Chen MD; Dec 13 2022 10:59AM EST (Author) [facility] Post Op (General Surgery)on 11-29-2022 Post Op [...] Muscle strain; ALBERT = N; Sent To: [facility] 6398 Patient Discussion/Summary Ice pack to left abdominal [...] here for post op History of Present Fnvjstn09-[id number]-nix patient who underwent laparoscopic repair of paraesophageal [...] BY MOUTH TWICE DAILY WITH MEALS Pyridostigmine [place] 60 MG Oral TabletTAKE 1 TABLET BY [...] Oral Tablet Vitamin D (Ergocalciferol) 1.25 MG (59474 UT) Oral CapsuleTAKE 1 CAPSULE BY MOUTH ONCE A WEEK Vitals Vital Signs Recorded: 29Nov2022 01:43PM Height6 ft 6 in Cmtlnc262 lb BMI Cfkyipribr64.24 kg/m2 BSA Calculated2.49 Physical Exam abd: soft, non-distended, tenderness over LUQ trocar site; no hernia Signatures Electronically signed by : Yossi Chen MD (more content not included)... Normal Touchworks Discharge [id number] 023 Discharge Profile2 Discharge Orders: Anticipated Discharge Date: Anticipated Discharge [id number] Hospital Providers: Provider RoleProvider Name KonradAprilMacyYossi Code Status: Code Status at Discharge: Full [...] up Call to Schedule in2 weeks Phone [phone] Commentscall to make appointment Other Clinician Instructions: Other Instructions: Other Clinician InstructionsAvoid bread, salad, steak and carbonated beverages for 2 wks Electronic Signatures: Sivan Costa (SALES PROJECT COORDINATOR-ORDER PACKER) (Signed 22-Nov-2022 12:04) Authored: Discharge Orders, Provider FINAL REVIEW of Orders, Appointments, Gold Form - Special Services Director Summary Yossi Chen) (Signed 22-Nov-2022 12:26) Authored: Discharge Orders, Provider FINAL REVIEW of Orders, Appointments, Other Clinician Instructions Last Updated: 22-Nov-2022 12:26 by Yossi Chen) [facility] Order Reconciliationon 11-22 Order Reconciliation Page 1 Discharge Reconciliation Document Reconciliation Type: Discharge requested on behalf of Yossi Chen (Physician) done by Yossi Chen) Discharge - Partial Reconciliation: 22-Nov-2022 12:05 by: Sivan Costa (SALES PROJECT COORDINATOR-[facility]) Discharge - Reconciliation: 22-Nov-2022 12:31 by: [...] not required (more content not included)... Normal [facility] APTTon 11-21-2022 aPTT Coag (Bld) [Time] 34 s Normal 27 - 38 [facility] Comment on above: Result Comment: Note new reference range as of 10/09/2022 at 10:00am. Performed By: #### A PTT ####[facility] [place], [place] [id number] Activated Partial Thrombopla stin Timeon 11-21-2022 aPTT Coag (PPP) [Time] 34 s 27 - 38 -[place] [facility] 201 DO Work Phone: Comment [...] applied here Patient Transferred from Other Facility ([facility], [facility],etc)no Patient Identity Verified Bypatient ID Band [...] AlertFor Ebola-like Symptoms: Isolate Patient and Notify Provider/Lithographic Platemaker For Contact: Notify Provider/Lithographic Platemaker Advance Directive: Advance Directive/DNRyes Advance Directive typeLiving Will Living Will AvailabilityLiving Will not available now Living Will [id number] [place] Fall Screen: History of falling (immediate [...] had any thoughts of harming anyone elseno Amado Suicide: Risk Screen Not Applicable/Able to Answerable [...] Was this within the past 3 monthsno Amado Suicide Riskmoderate Adult Nutrition Screen: Have you [...] Spiritual Screen: Are there any cultural, spiritual, gnosticism practices/values/needs that are important for us to knowno CAGE: Is this an injured patient at a Trauma Center ([facility]/[place]): no Vaccinations: Vaccination - Influenza Vaccination Screen: (more content not included)... Normal [facility] CBC AND DIFFERENTIALon 11-21 % AUTOMATED IMMATURE GRAN 0.3 % Normal 0.0 - 0.9 [facility] Comment on above: Result Comment: Nataliia ture Granulocyte Count (IG) includes promyelocytes, myelocytes and metamyelocytes but does not include bands. Percent differential counts (%) should be interpreted in the context of the absolute cell counts (cells/L). Performed By: #### C BCDF #### [facility] [address] [place], [place] [id number] Basophils (Bld) [#/Vol] 0.04 10*3/uL Normal 0.00 - 0.10 [facility] Comment on above: Performed By: #### C BCDF #### [facility] [address] [place], [place] [id number] Basophils/100 WBC (Bld) 0.6 % Normal 0.0 - 2.0 [facility] Comment on above: Performed By: #### C BCDF #### [address] [id number] Eosinophils (Bld) [#/Vol] 0.27 10*3/uL Normal 0.00 - 0.70 [facility] Comment on above: Performed By: #### C BCDF #### [address] [id number] Eosinophils/100 WBC (Bld) 3.9 % Normal 0.0 - 6.0 [facility] Comment on above: Performed By: #### C BCDF #### [address] [id number] Erythrocyte distribution width (RBC) [Ratio] 13.5 % Normal 11.5 - 14.5 [facility] Comment on above: Performed By: #### C BCDF #### [address] [id number] Hematocrit (Bld) [Volume fraction] 40.1 % Low 41.0 - 52.0 [facility] Comment on above: Performed By: #### C BCDF #### [address] [id number] Hemoglobin (Bld) [Mass/Vol] 13.3 g/dL Low 13.5 - 17.5 [facility] Comment on above: Performed By: #### C BCDF #### [address] [id number] Lymphocytes (Bld) [#/Vol] 1.54 10*3/uL Normal 1.20 - 4.80 [facility] Comment on above: Performed By: #### C BCDF #### [address] [id number] Lymphocytes/100 WBC (Bld) 22.3 % Normal 13.0 - 44.0 [facility] Comment on above: Performed By: #### C BCDF #### [address] [id number] MCHC (RBC) [Mass/Vol] 33.2 g/dL Normal 32.0 - 36.0 [facility] Comment on above: Performed By: #### C BCDF #### [address] [id number] MCV (RBC) [Entitic vol] 83 fL Normal 80 - 100 [facility] Comment on above: Performed By: #### C BCDF #### [address] [id number] Monocytes (Bld) [#/Vol] 0.71 10*3/uL Normal 0.10 - 1.00 [facility] Comment on above: Performed By: #### C BCDF #### [address] [id number] Monocytes/100 WBC (Bld) 10.3 % Normal 2.0 - 10.0 [facility] Comment on above: Performed By: #### C BCDF #### [address] [id number] Neutrophils (Bld) [#/Vol] 4.33 10*3/uL Normal 1.20 - 7.70 [facility] Comment on above: Performed By: #### C BCDF #### [address] [id number] Neutrophils/100 WBC (Bld) 62.6 % Normal 40.0 - 80.0 [facility] Comment on above: Performed By: #### C BCDF #### [address] [id number] Platelets (Bld) [#/Vol] 210 10*3/uL Normal 150 - 450 [facility] Comment on above: Performed By: #### C BCDF #### [address] [id number] RBC 4.84 x10E12/L Normal 4.50 - 5.90 [facility] Comment on above: Performed By: #### C BCDF #### [address] [id number] WBC (Bld) [#/Vol] 6.9 10*3/uL Normal 4.4 - 11.3 [facility] Comment on above: Performed By: #### C BCDF #### [address] [id number] COMPREHENSIVE PANELon 2022 Albumin [Mass/Vol] 4.4 g/dL Normal 3.4 - 5.0 [facility] Comment on above: Performed By: #### C MP #### [address] [id number] ALP [Catalytic activity/Vol] 60 U/L Normal 33 - 136 [facility] Comment on above: Performed By: #### C MP #### [address] [id number] ALT [Catalytic activity/Vol] 14 U/L Normal 10 - 52 [facility] Comment on above: Result Comment: Kasandra ents treated with Sulfasalazine may generate falsely decreased results for ALT. Performed By: #### C MP #### [address] [id number] Anion gap [Moles/Vol] 14 mmol/L Normal 10 - 20 [facility] Comment on above: Performed By: #### C MP #### [address] [id number] AST [Catalytic activity/Vol] 13 U/L Normal 9 - 39 [facility] Comment on above: Performed By: #### C MP #### [address] [id number] Bilirubin [Mass/Vol] 0.3 mg/dL Normal 0.0 - 1.2 [facility] Comment on above: Performed By: #### C MP #### [address] [id number] Calcium [Mass/Vol] 7.1 mg/dL Low 8.6 - 10.3 [facility] Comment on above: Performed By: #### C MP #### [address] [id number] Chloride [Moles/Vol] 106 mmol/L Normal 98 - 107 [facility] Comment on above: Performed By: #### C MP #### [address] [id number] Creatinine [Mass/Vol] 1.38 mg/dL High 0.50 - 1.30 [facility] Comment on above: Performed By: #### C MP #### [address] [id number] GFR/1.73 sq M.predicted among non-blacks MDRD (S/P/Bld) [Vol rate/Area] 55 mL/min/{1.73_m2} Abnormal >90 [facility] Comment on above: Result Comment: CALC ULATIONS OF ESTIMATED GFR ARE PERFORMED USING THE 2020 CKD-EPI STUDY REFIT EQUATION WITHOUT THE RACE VARIABLE FOR THE IDMS-TRACEABLE CREATININE METHODS. https://jasn.asnjournals.org/content/early/ASN.4491042 988 Performed By: #### C MP #### [address] [id number] Glucose [Mass/Vol] 105 mg/dL High 74 - 99 [facility] Comment on above: Performed By: #### C MP #### [address] [id number] HCO3 (Bld) [Moles/Vol] 24 mmol/L Normal 21 - 32 [facility] Comment on above: Performed By: #### C MP #### [address] [id number] Potassium [Moles/Vol] 3.8 mmol/L Normal 3.5 - 5.3 [facility] Comment on above: Performed By: #### C MP #### [address] [id number] Protein [Mass/Vol] 7.2 g/dL Normal 6.4 - 8.2 [facility] Comment on above: Performed By: #### C MP #### [address] [id number] Sodium [Moles/Vol] 140 mmol/L Normal 136 - 145 [facility] Comment on above: Performed By: #### C MP #### [address] [id number] Urea nitrogen [Mass/Vol] 23 mg/dL Normal 6 - 23 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 Procedure: Laparoscopic repair of Type 3 paraesophageal hernia with Toupet wrap. Provider/Team Contact Info-Pager Fab Law PA-C [phone] Electronic Signatures: Kee Law (PAC) (Signed 21-Nov-2022 14:31) Authored: Clinical Event Note Last Updated: 21-Nov-2022 14:31 by Kee Lwa (PAC) Normal [facility] Complete Blood Count + Diffe yessytialon 11-21-2022 Basophils/100 WBC (Bld) 0.6 % 0.0 [...] Lymphocytes/100 WBC (Bld) 22.3 % See Below [facility] 201 DO Work Phone: Comment on above: Reference Range: 13. 0 - 44.0 MCHC (RBC) [Mass/Vol] 33.2 g/dL See Below [facility] 201 DO Work Phone: Comment on above: Reference Range: 32. 0 - 36.0 MCV (RBC) [Entitic vol] 83 fL 80 - 100 -[place] [facility] 201 DO Work Phone: Monocytes/100 [...] RBC (Bld) [#/Vol] 4.84 {x10E12/L} See Below [facility] 201 DO Work Phone: Comment on above: Reference Range: 4.5 0 - 5.90 WBC (Bld) [#/Vol] 6.9 10*3/uL 4.4 - 11.3 [facility] 201 DO Work Phone: Complete Blood Count + Differential 0.04 {x10E9/L} See Below [facility] 201 DO Work Phone: Comment on above: Reference Range: 0.0 0 - 0.10 Complete Blood Count + Differential 0.27 {x10E9/L} See Below [facility] 201 DO Work Phone: Comment on above: Reference Range: 0.0 0 - 0.70 Complete Blood Count + Differential 0.71 {x10E9/L} See Below [facility] 201 DO Work Phone: Comment on above: Reference Range: 0.1 0 - 1.00 Complete Blood Count + Differential 1.54 {x10E9/L} See Below [facility] 201 DO Work Phone: Comment on above: Reference Range: 1.2 0 - 4.80 Complete Blood Count + Differential 4.33 {x10E9/L} See Below [facility] 201 DO Work Phone: Comment on above: Reference Range: 1.2 0 - 7.70 Complete Blood Count + Differential 3.9 % 0.0 - 6.0 [facility] 201 DO Work Phone: Complete [...] gap [Moles/Vol] 14 mmol/L 10 - 20 [facility] 201 DO Work Phone: AST With P-5'-P [Catalytic activity/Vol] 13 U/L 9 - 39 [facility] [facility] 201 DO Work Phone: Bilirubin [Mass/Vol] 0.3 mg/dL 0.0 - 1.2 [facility] 201 DO Work Phone: Calcium [Mass/Vol] 7.1 mg/dL below low threshold 8.6 - 10.3 [facility] [facility] 201 DO Work Phone: Chloride [Moles/Vol] 106 mmol/L 98 - 107 [facility] 201 DO Work Phone: CO2 [Moles/Vol] 24 mmol/L 21 - 32 [facility] [facility] 201 DO Work Phone: Creatinine [Mass/Vol] 1.38 mg/dL above high threshold See Below [facility] [facility] 201 DO Work Phone: Comment on above: Reference Range: 0.5 0 - 1.30 Glucose [Mass/Vol] 105 mg/dL above high threshold 74 - 99 [facility] [facility] 201 DO Work Phone: Potassium [Moles/Vol] 3.8 mmol/L 3.5 - 5.3 [facility] [facility] 201 DO Work Phone: Protein [Mass/Vol] 7.2 g/dL 6.4 - 8.2 [facility] 201 DO Work Phone: Sodium [Moles/Vol] 140 mmol/L 136 - 145 [facility] 201 DO Work Phone: Urea nitrogen [Mass/Vol] 23 mg/dL 6 - 23 [facility] [facility] 201 DO Work Phone: Laboratory - Coagulationon 0 8- INR Coag (PPP) [Relative time] 1.0 {INR} 0.9 - 1.1 [facility] [facility] 201 DO Work Phone: PT Coag (PPP) [Time] 11.7 s 9.8 - 12.8 [facility] 201 DO Work Phone: Comment on above: Note new reference r josephine as of 10/09/2022 at 10:00am. No Panel Informationon 11-21 -[place] [facility] 201 DO Work Phone: 55 {mL/min/1.73m2} Abnormal >90 [facility] 201 DO Work Phone: Comment on above: CALCULATIONS OF FLORENTIN MATED GFR ARE PERFORMED USING THE 2020 CKD-EPI STUDY REFIT EQUATION WITHOUT THE RACE VARIABLE FOR THE IDMS-TRACEABLE CREATININE METHODS.https://jasn.asnjournals.org/content/early/ASN .8437202543 PT/INRon 11-21-2022 PT Coag (PPP) [Time] 11.7 s Normal 9.8 - 12.8 [facility] Comment on above: Result Comment: Note new reference range as of 10/09/2022 at 10:00am. Performed By: #### P TINR ####[id number] [place], [place] [id number] PT, INR 1.0 Normal 0.9 - 1.1 [facility] Comment on above: Performed By: #### P TINR ####[address] [id number] Patient Profile - Adult v2on 11-21-2022 Patient [...] applicable(1) Weight in kg113.7 kilogram(s) Weight in yph833.6 pound(s) Weight Methodstated Scale Typebed Height in [...] [facility] Dep[facility] tmenton 11-21-2022 [facility] Surgical Pathology Department Name HARMONY YOLIFRANKIE Haley JR. Pathologist: KAITLYN LAW MD Date of Procedure: 11/21/2022 Date Received: 11/21/2022 Date Reported 12/03/2022 Submitting Physician: YOSSI CHEN MD Location: [facility] Copy To/Referring/Attending: RADHA BURRIS MD Other External # FINAL DIAGNOSIS A. HIATAL HERNIA SAC: -- BENIGN ADIPOSE TISSUE AND CONTAINED BENIGN LYMPH NODES. Electronically Signed Out By KAITLYN LAW MD/HOMER By the signature on this report, the individual or group listed as making the Final Interpretation/Diagnosis certifies that they have reviewed this case. Diagnostic interpretation performed at [facility] [address] [place] [address] Clinical History: Physician Contact Number: [phone] Fixative (A): Formalin Clinical Diagnosis History HIATAL HERNIA. Specimens Submitted As: A: HERNIA SAC Gross Description: Received in formalin, labeled with the patient's name and hospital number and hernia sac , are multiple segments of yellow fibroadipose soft tissue aggreagting to 8.0 x 5.0 x 2.5 cm. Areas of induration, nodularity, hemorrhage or necrosis are not seen. Bag Making Machine Tender sections are submitted in one cassette. LMP lmp/11/27/2022 [facility] Department of Pathology [address] [place] [address] Normal [facility] Comment on above: Performed By: #### U [facility] #### [facility] Surgical Pathology Department [address] [place] [address] Patient Profile - Preop v3on 11-19-2022 Patient Profile - Preop v3 Patient Profile - Preop: Initial Info: Patient DemographicsName: YOLI ANTUNEZ Date: 1955 Address: [address] [place] [id number] Date/Time 12:28 Primary Phone [phone] Instructions Givenappropriate clothing, bring glasses/contacts case, bring responsible adult as the mechanic driver (procedure may be cancelled if no mechanic driver), center location, insurance information, remove jewerly/piercings, time to arrive Prep Instructions Reviewedn/a Instructions/Prep CommentNPO after midnight - bring event recorder info/ID card day of procedure How to be AddressedFred Spoken Language PreferredEnglish Source of Informationpatient Stated Reason for Admissionhiatal hernia repair Primary Contact Name and Numberjames Smith [phone] Limitations on Visitors/Phone Callsnone Medications Brought to Hospitalno General Health: Weight in kg113.5 kilogram(s) Weight in zbe970.2 pound(s) Weight Methodactual (measured) Scale Typestanding Height [...] recorder- right side of chest- checked at [place] kidney stone watchman device cataract detached retina [...] dhruv; hypertension Cardiovascular Management Strategiesmedication therapy; medical cost consultant Cardiovascular Symptoms/Conditions Commentcardiac ablation for atrial fib/ watchman device/ Event recorder (asked to bring ID in day of procedure - Checked at [place] office) Endocrine Symptoms/Conditionsthyroid disease Endocrine Management Strategiesmedication [...] Withspouse Living Arrangementshouse Resource/Environmental Concernsnone Anticipated Transition [place] [facility] Anticipated at Transitionnon Tobacco Use: Tobacco Useyes Tobacco Typecigarettes Number of Packs per Day2 Number of yrs15 Pack yrs30 Tobacco Commentquit smoking 1986 Pre-op Checklist: Arrival [id number] Arrival Time05:23 Procedure TypeLaparoscopic Hiatal Hernia repair with Toupet wrap possible feeding tube and upper endoscopy NPOyes Last Food [id number] 22:00 Last Clear Fluid [id number]-Fqe-2911 22:00 ID Band On Patientpatient ID (name), [...] Allergies, Ho (more content not included)... Normal [facility] Initial Visit (General Surge ry)on [...] gas bloat, inability to burp, blood clot, CT and stroke. All questions answered and he is willing to proceed. He will be on a full liquid diet for 3 days after surgery and then advance to a soft diet. Avoid bread [place] steak and carbonated beverage for 2 weeks. Chief Complaint Patient referred by Dr. Daily for a hiatal hernia consult. History of Present Npvirrv29 y/o male patient referred for symptomatic hiatal [...] results of DISE Adult Risk ScreeningAdult Risk Screening_UH: There are no spiritual/cultural practices/values/needs that are [...] waking up feeling unrefreshed, excessive daytime fatigue. [place] Sleepiness Scale Score is 16 /24. Fatigue [...] B2 1.25 milligram(s) orally once a day [facility] Patient Profile - Preop v3on 10-12-2022 Patient Profile - Preop v3 Patient Profile - Preop: Initial Info: Patient DemographicsName: YOLI ANTUNEZ Date: 1955 Address: [address] [place] [address], [id number] Primary Phone [phone] Instructions Giventime to arrive, Arrival time of 0930 for surgery time of 1100 How to be Addressedfrederick Spoken Language PreferredEnglish Stated Reason for Admissionsleep study Primary Contact Name and Numbersee facesheet Medications Brought to Hospitalno General Health: Weight in kg116.6 kilogram(s) Weight in ltv512 pound(s) Height in feet6 feet Height in inches5.95 inch(es) Height in cm197.9 centimeter(s) BMI (kg/m2)29.771 square meter Patient or Family Member Reaction to Anesthesiapatient reaction Patient Reaction to Anesthesiaawakening delayed Blood Avoidance/Restrictionsnone Previous Transfusion Reactionnot applicable Health Mgmt: Symptoms/Conditions Managed at Homecardiovascular; endocrine Barriers to Managing Healthnone Relationship/Environ: Lives Withspouse Living Arrangementshouse Resource/Environmental Concernsnone Anticipated [facility] [place] [facility] Anticipated at Transitionnone Tobacco Use: Tobacco Useno Pre-op Checklist: Arrival [id number] Arrival Time09:59 Procedure Typesleep study NPOyes Last Food [id number] 00:00 Last Clear Fluid [id number]-Ybl-6874 00:00 ID Band On Patientpatient ID (name), [...] 15-Oct-2022 10:00 by Letty Godfrey (RN) Normal [facility] Electrocardiogram 12 Leadon 10-10-2022 Electrocardiogram 12 Lead Ventricular Rate 70 Atrial Rate 70 P-R Interval 194 QRS Duration 78 Q-T Interval 420 QTC Calculation(Bazett) 453 P Switchback 38 R Switchback 13 T Switchback 66 QRS Count 12 Q Onset 222 P Onset 125 P Offset 161 T Offset 432 QTC Fredericia 442 Diagnosis Class Normal Diagnosis Normal sinus rhythm Normal ECG No previous ECGs available Confirmed by Aliya Candelaria ([id number]) on 10/14/2022 8:34:16 PM Normal [facility] No Panel Informationon 10-10 [email or web address]?R etrieveTestByDateTime?Patie alTJ=[id number]&Date= 023&Time=14%3a24%3a36%3a00& TestType=ECG&Site=10&Output Type=PDF&Ext=PDF [facility] Work Phone: [phone] Normal sinus rhythm [facility] Work Phone: [phone] Normal [facility] Work Phone: [phone] [facility] Work Phone: [phone] [facility] Work Phone: [phone] 1 [facility] Work Phone: [phone] 1 [facility] Work Phone: [phone] 1 [facility] Work Phone: [phone] 1 [facility] Work Phone: [phone] 1 [facility] Work Phone: [phone] 1 [facility] Work Phone: [phone] 1 [facility] Work Phone: [phone] 1 [facility] Work Phone: [phone] 1 [facility] Work Phone: [phone] [facility] Work Phone: [phone] 1 [facility] Work Phone: 70 1 [facility] Work Phone: Established Visit (Otolaryng ology)on [...] symptoms appear more central. Sees neurology at [facility] who suspects he may have autonomic dysfunction - F/u with [facility] neurology as scheduled 2) ADA, CPAP [...] telehealth visit. Dysphagia follow-up History of Present Zjkilln37 year old man with history of intermittnet [...] more in his throat. Seeing neurology at [facility] for his intermittent aphasia. Still awaiting [...] following interpretation. (more content not included)... Normal [facility] Established Visit (Otolaryng ology)on 09-24-2022 Established Visit [...] swallowing problems. Dr. Perrin's office number is [phone]. Please use this number to contact her and her care team regardless of which office you use to access care. This number is the most direct way to communicate with all the members of the care team. Dr. Perrin?s meat carver answers the office phone from 9am-4pm Mon-Fri. Call [phone] and push 2. She can help you with scheduling of appointments, general questions and information. You may need to leave a message if she is helping another patient. In this case, someone from the team will call you back the same day if you leave your message before 3pm, or the next business morning. Dr. Perrin?s nurse and can be reached by calling [phone]. We make every effort to return phone calls the same day. If you are in need of urgent assistance after hours, please call [phone] and ask for ENT contact lens blocker and cutter. Dr. Perrin works closely with speech therapists as they work together to help solve your issues with speech and swallowing. You may see a speech therapist during your appointment if Dr. Perrin feels this is needed. If you need to reach speech therapy to talk with a therapist or to schedule an appointment, please call [phone]. Others who may be included in your care are dieticians, social workers, audiologists, neurologists, and physical therapists. Dr. Perrin will provide these referrals as needed. Please let her know if you would like to request a specific referral. For your convenience, Dr. Perrin sees patients at different [facility] locations including the [facility] at [facility], and [facility] at the [facility]. While we try to make your [...] discuss his care with Dr. Long at [facility] to understand current treatment plans 2. [...] Michaud. He (more content not included)... Normal [facility] Established Visit (Otolaryngology) No report was sent Normal INRFOOD s No Panel Informationon 09-13 [email or web address]} [facility] Work Phone: [facility] Work Phone: -Otolaryngo logy-[facility] 4100 Work Phone: [facility] Surgical Pathology Depar tmenton 09-13-2022 [facility] Surgical Pathology Department Name YOLI [...] reviewed this case. Diagnostic [place] [address] Clinical History: R/O Esophagitis and metaplasia Specimens Submitted As: A: GE JUNCTION COLD FORCEPS Gross Description: Received in formalin, labeled with the patient's name and hospital number and A , are 2 fragments of martin, soft tissue aggregating to 0.5 x 0.2 x 0.2 cm. The specimen is submitted in toto in one cassette. [facility] sbs/09/21/2022 [place] [facility] Department of Pathology [address] [place] [address] Normal [facility] Comment on above: Performed By: #### U HCS #### [facility] Surgical Pathology Department [address] [place] [address] Upper GI endoscopyon 023 Upper GI endoscopy PATIENTNAME Patient Name: Yoli Antunez EXAMDATE Procedure Date: 09/13/2022 3:41 PM PATIENTID PATIENTACCOUNTNUM PATIENTDOB Date of : 1955 ADMITTYPE Admit Type: Outpatient PATIENTROOM Site: [facility] Procedure Room 2 ETHNICITY Ethnicity: Not or RACE Race: White PROVDR Attending MD: Ruby Daily MD, [id number] ENDOPROCEDURENAME Procedure: Upper GI endoscopy INDICATION Indications: Dysphagia, cricopharyngeal web PRIMARYPROVIDER Providers: Ruby Daily MD (Doctor), Vale Mercado RN (Nurse), Sabina Atkins, Director Telehealth EDREFPROVIDER Referring: Ruby Daily MD CURRENT_MEDS Medicines: [...] medications. CPT_CODES Procedure Code(s): --- Professional --- 86485, Moderate sedation services provided by the same physician or other qualified health long term care social worker performing the diagnostic or therapeutic service that the sedation supports, requiring the presence of an independent trained observer to assist in the monitoring of the patient's level of consciousness and physiological status; initial 15 minutes of intraservice time, patient age 5 years or older [address], Unlisted procedure, esophagus ICD_CODES Diagnosis Code(s): --- Professional --- J38.3, O (more content not included)... Normal [facility] SURGICAL PATHOLOGY RESULTSon 09-06-2022 Pathology Report Name BROOKE ANTUNEZ Tera ISIDRO Pathologist: MAYELIN AVILEZ MD Date of Procedure: 08/30/2022 Date Received: 08/30/2022 Date Reported 09/06/2022 Submitting Physician: BETH DIEGO MD Location: [facility] Copy To/Referring/Attending: RUBY DAILY M.D. Other External [...] reviewed this case. Diagnostic interpretation performed at [address] [place] [address] Clinical History: A) R/O H.pylori B) R/O [...] in toto in one cassette. DMB dmb/09/04/2022 [facility] Department of Pathology [address] [place] [address] Established Visit (Otolaryng ology)on 09-04-2022 Established Visit [...] telehealth visit. Dysphagia follow-up History of Present [id number] year old man with history of dysphagia [...] of : 1955 Admit Type: Outpatient Site: [facility] Procedure Room 5 Ethnicity: Not or Race: White Attending MD: ELISEO Williamson, [id number] Procedure: Upper GI endoscopy Indications: Dysphagia for 5 years to both liquids and solids Patient Profile: This is a 67 year old male. Refer to note in patient chart for documentation of history and physical. Providers: ELISEO Williamson (Doctor), Jaylen Lo, CARLOS (Nurse), Florentino De Dios, Director Telehealth, Kristin Mcdaniels RN (Nurse) Referring: Radha Burris [...] specimen was done by the nurse and security installation technician using the patient's name and medical record number. Estimated blood loss was minimal. A single 3 mm nodule was found at the gastroesophageal junction, 39 cm from the incisors. Biopsies were taken with a cold forceps for histology. Verification of patient identification for the specimen was done by the nurse and security installation technician using the patient's name and medical [...] specimen was done by the nurse and security installation technician using the patient's name and medical [...] right naris un (more content not included)... [facility] Work Phone: Radiology Study observation (narrative) [facility] Work Phone: EGDOrdered By: Beth Diego on 08-30-2022 [facility] Work Phone: No Panel Informationon 08-30 Name BROOKE ANTUNEZ GHASSAN Haley JR. Pathologist: MAYELIN AVILEZ MD Date of Procedure: 08/30/2022 Date Rec -[facility] Work Phone: [email or web address]={[id number]} [facility] Work Phone: [facility]-Otolaryngo logy-[facility] [...] 1.25 milligram(s) orally once a day Normal [facility] Surgical Pathology Depar tmenton 08-30-2022 [facility] Surgical [facility]ology Department Name YOLI [...] ABNORMALITIES. Electronically Signed Out By MAYELIN AVILEZ MD/[facility] By the signature on this report, the individual or group listed as making the Final Interpretation/Diagnosis certifies that they have reviewed this case. Diagnostic interpretation performed at [facility] [address] [facility] [address] Clinical History: A) R/O H.pylori B) R/O [...] in toto in one cassette. DMB dmb/09/04/2022 [facility] Department of Pathology [address] [place] [address] Normal [facility] Comment on above: Performed By: #### U [facility] #### [facility] Surgical Pathology Department [address] [place] [address] Upper GI endoscopyon 023 Upper GI endoscopy PATIENTNAME Patient Name: Yoli Antunez EXAMDATE Procedure Date: 08/30/2022 7:32 AM PATIENTID PATIENTACCOUNTNUM PATIENTDOB Date of : 1955 ADMITTYPE Admit Type: Outpatient PATIENTROOM Site: [facility] Procedure Room 5 ETHNICITY Ethnicity: Not or RACE Race: White PROVDR Attending MD: ELISEO Williamson, [id number] ENDOPROCEDURENAME Procedure: Upper GI endoscopy INDICATION Indications: Dysphagia for 5 years to both liquids and solids PTPROFILE Patient Profile: This is a 67 year old male. Refer to note in patient chart for documentation of history and physical. PRIMARYPROVIDER Providers: ELISEO Williamson (Doctor), Jaylen Lo, CARLOS (Nurse), Florentino De Dios, Director Telehealth, Kristin Mcdaniels RN (Nurse) EDREFPROVIDER Referring: Radha [...] specimen was done by the nurse and security installation technician using the patient's name and medical record number. Estimated blood loss was minimal. A single 3 mm nodule was found at the gastroesophageal junction, 39 cm from the incisors. Biopsies were taken with a cold forceps for histology. Verification of patient identification for the specimen was done by the nurse and security installation technician using the patient's name and medical [...] specimen was done by the nurse and security installation technician using the patient's name and medical [...] re (more content not included)... Normal [facility] Established Visit (Otolaryng ology)on 08-17-2022 Established [...] waking up feeling unrefreshed, excessive daytime fatigue. [place] Sleepiness Scale Score is 16 /24. Fatigue [...] CPAP; however, (more content not included)... Normal [facility] Tobacco Screening.on 023 Adult depression screening assessment No [facility]Otolaryn go [facility] Work Phone: Fall risk assessment a) No falls within the last year [facility]-Otolaryngo [facility] [facility] Work Phone: Tobacco use status CPHS b) No [facility]-Otolaryngo log[facility]-[place] [facility] 302 Work Phone: INSULATION POWER UNIT TENDER (Progress Note)on 2022 INSULATION POWER UNIT TENDER (Progress Note) Therapy Diagnosis Assessed Dysphagia, oropharyngeal [...] visit this date. Objective Progress to date: 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 goals: 1. Patient will safety tolerate the [...] verbalized understanding and agreement: yes CPT Code 26966 Treatment of swallowing dysfunction and/or oral function for feeding Signatures Electronically signed by : Yoanna Quigley CCC-INSULATION POWER UNIT TENDER; Aug 13 2022 3:44PM EST (Author) Normal [facility] GI ESOPHAGRAMon 08-10-2022 GI ESOPHAGRAM Patient Name: YOLI ANTUNEZ STUDY: GI ESOPHAGRAM; ; 08/10/2022 1:49 pm INDICATION: assess motility, r/o achalasia, assess mass/lesions R13.12: Dysphagia, oropharyngeal phase. COMPARISON: None. ACCESSION NUMBER(S): [id number] ORDERING CLINICIAN: RUBY DAILY TECHNIQUE: Fluoroscopic guided single and double contrast barium esophagram. FINDINGS: Security Project Manager view of the chest, abdomen shows [...] Electronically signed by: JAE SOUTH MD Normal [facility] Radiologyon 08-10-2022 XR Esophagus Views W contrast PO Normal [facility]-Otolaryngo log[facility] Phone: Established Visit (Otolaryng ology)on 07-31-2022 Established [...] a telehealth visit. Swallow History of Present Vdaooxt89 year old man with history of dysphagia [...] with head turn or chin tuck esophagram 2019 - slow clearing of the [...] 20 MG (more content not included)... Normal [facility] Tobacco Screening.on 023 Adult depression screening assessment No [facility]Otolaryn go [facility] Work Phone: Fall risk assessment b) One or more fall s in the last year [facility]tol[facility] [employer] Phone: Tobacco use status CPHS b) No [facility]Otolaryngo [facility] Work Phone: INSULATION POWER UNIT TENDER (Progress Note)on 2022 INSULATION POWER UNIT TENDER (Progress Note) No report was sent Normal [facility] INSULATION POWER UNIT TENDER (Progress Note) Therapy Diagnosis Assessed Dysphagia, oropharyngeal [...] visit this date. Objective Progress to date: 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 goals: 1. 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 COMPARISON: None. ACCESSION NUMBER(S): [id number] ORDERING CLINICIAN: RANJANA PERRIN TECHNIQUE: MBSS completed. Informed verbal consent obtained prior to completion of exam. Trials of thin, nectar thick, honey thick, puree, soft-solids, and regular solids given. Fluoroscopy time : 3 minutes, 2 seconds. INSULATION POWER UNIT TENDER: Osmel Lozano M.S., [facility]-INSULATION POWER UNIT TENDER Phone/Pager: Can be contacted via [employer] or SPEECH FINDINGS: Reason for referral: A [...] a home program 2-3 times per day. [facility] goals: Patient will be able to tolerate [...] regarding the esophageal phase of the swallow. INSULATION POWER UNIT TENDER impressions with severity rating: Patient presents with [...] nectar thi (more content not included)... Normal [facility] No Panel Informationon 07-18 Normal [facility]Otolaryngo [facility] Work Phone: Swallow Evaluation v2-Modifi ed Barium Swallow, SLPon 07-18-2022 Swallow Evaluation v2-Modified Barium Swallow, INSULATION POWER UNIT TENDER Rehab: Info: Time IN11:05 Time OUT11:55 Total Treatment [id number] Evaluation TypeModified Barium Swallow, INSULATION POWER UNIT TENDER Impression: Assessment (Swallow Eval)INSULATION POWER UNIT TENDER impressions with severity rating: [Patient presents with [...] of the EMR/AEMR Electronic Signatures: Osmel Lozano (INSULATION POWER UNIT TENDER) (Signed 18-Jul-2022 14:17) Authored: Info, Impression Last Updated: 18-Jul-2022 14:17 by Osmel Lozano (INSULATION POWER UNIT TENDER) Normal [facility] Established Visit (Otolaryng ology)on 07-17-2022 [...] for management of ADA Welcome to Dr. Perirn?s clinic. We are here to assist you through your ENT care at [facility]. Dr. Perrin is an ENT surgeon who specializes in voice, airway and swallowing issues. This means that she specializes in taking care of patients with complex voice, airway and swallowing problems. Dr. Perrin's office number is [phone]. Please use this number to contact her and her care team regardless of which office you use to access care. This number is the most direct way to communicate with all the members of the care team. Dr. Perrin?s meat carver answers the office phone from 9am-4pm Sat-Sat. Call [phone] and push 2. She can help you with scheduling of appointments, general questions and information. You may need to leave a message if she is helping another patient. In this case, someone from the team will call you back the same day if you leave your message before 3pm, or the next business morning. Dr. Perrin?s nurse and can be reached by calling [phone]. We make every effort to return phone calls the same day. If you are in need of urgent assistance after hours, please call [phone] and ask for ENT contact lens blocker and cutter. Dr. Perrin works closely with speech therapists as they work together to help solve your issues with speech and swallowing. You may see a speech therapist during your appointment if Dr. Perrin feels this is needed. If you need to reach speech therapy to talk with a therapist or to schedule an appointment, please call [phone]. Others who may be included in your care are dieticians, social workers, audiologists, neurologists, and physical therapists. Dr. Perrin will provide these referrals as needed. Please let her know if you would like to request a specific referral. For your convenience, Dr. Perrin sees patients at different [facility] locations including the [facility], and [facility] at the main [facility]. While we try to make your appointments [...] Adult depression screening assessment No -Otolaryn go [facility] 4[address] Work Phone: Fall risk assessment b) One or more fall s in the last year MG-Otolaryngo [facility] [address] Work Phone: Tobacco use status CPHS b) No -Otolaryngo [facility] 4[address] Work Phone: BNPon 06-04-2022 Natriuretic peptide B (Bld) [Mass/Vol] 182.0 pg/mL Normal <=900.0 [facility] Comment on above: Performed By: #### H STROPN #### [facility] [address] [place] [address] Dr. Kulwant Brennan CARDIAC MAYELIN ADMITon 023 CK [Catalytic activity/Vol] 86 U/L Normal 39-308 [facility] Comment on above: Performed By: #### L ACT #### [facility] [address] [place] [address] Dr. Kulwant Brennan CK.MB [Mass/Vol] 0.84 ng/mL Normal <=3.60 [facility] Comment on above: Performed By: #### L ACT #### [facility] [address] [place] [address] [address] Kulwant Brennan HSTROP 4.6 pg/mL Normal 4.0-76.1 [facility] Comment on above: Result Comment: CUT- OFF POINTS HAVE BEEN ESTABLISHED BASED ON THE FOURTH UNIVERSAL DEFINITIONS OF MYOCARDIAL INFARCTION. THE UPPER REFERENCE LIMIT (URL) OF TROPONIN, DEFINED THE 99TH PERCENTILE OF cTnI DISTRIBUTION IN A REFERENCE POPULATION, HAS BEEN CONFIRMED THE DECISION THRESHOLD FOR CT DIAGNOSIS. Performed By: #### L ACT #### [facility] [address] [place] [address] [address] Kulwant Brennan EFRAIN 52 ng/mL Normal 16-96 [facility] Comment on above: Performed By: #### L ACT #### [facility] [address] [place], [place] [id number] Dr. Kulwant Brennan CBC AUTO DIFFon 06-04-2022 BASO # 0.1 103/ul Normal 0.0-0.1 [facility] Comment on above: Performed By: #### L ACT #### [facility] [address] [place] [address] Dr. Kulwant Brennan Basophils/100 WBC (Bld) 0.5 % Normal 0.2-2.0 [facility] Comment on above: Performed By: #### L ACT #### [facility] [address] [place] [address] Dr. Kulwant Brennan EO # 0.2 103/ul Normal 0.0-0.7 [facility] Comment on above: Performed By: #### L ACT #### [facility] [address] [place] [address] Dr. Kulwant Brennan Eosinophils/100 WBC (Bld) 2.6 % Normal 0.9-7.0 [facility] Comment on above: Performed By: #### L ACT #### [facility] [address] [place] [address] Dr. Kulwant Brennan Erythrocyte distribution width (RBC) [Ratio] 15.0 % Normal 11.0-15.0 [facility] Comment on above: Performed By: #### L ACT #### [facility] [address] [place] [address] Dr. Kulwant Brennan Hematocrit (Bld) [Volume fraction] 42.3 % Normal 42.0-54.0 [facility] Comment on above: Performed By: #### L ACT #### [facility] [address] [place] [address] Dr. Kulwant Brennan Hemoglobin (Bld) [Mass/Vol] 14.0 g/dL Normal 14.0-18.0 [facility] Comment on above: Performed By: #### L ACT #### [facility] [address] [place] [address] [address] Kulwant Brennan IG # 0.10 10e3/ul Critically high 0.00-0.03 [facility] Comment on above: Performed By: #### L ACT #### [facility] [address] [place] [address] [address] Kulwant Brennan IG % 1.1 % Critically high 0.0-0.5 [facility] Comment on above: Performed By: #### L ACT #### [facility] [address] [place] [address] Dr. Kulwant Brennan LYMPH # 2.7 103/ul Normal 1.2-3.8 [facility] Comment on above: Performed By: #### L ACT #### [facility] [address] [place] [address] Dr. Kulwant Brennan Lymphocytes/100 WBC (Bld) 29.1 % Normal 20.5-60.0 [facility] Comment on above: Performed By: #### L ACT #### [facility] [address] [place] [address] Dr. Kulwant Brennan MANUAL DIFF REQ NO Normal [facility] Comment on above: Performed By: #### L ACT #### [facility] [address] [place] [address] Dr. Kulwant Brennan MCH (RBC) [Entitic mass] 27.0 pg Normal 25.9-34.0 [facility] Comment on above: Performed By: #### L ACT #### [facility] [address] [place] [address] [address] Kulwant Brennan MCHC (RBC) [Mass/Vol] 33.1 g/dL Normal 29.9-35.2 [facility] Comment on above: Performed By: #### L ACT #### [facility] [address] [place] [address] Dr. Kulwant Brennan MCV (RBC) [Entitic vol] 81.5 fL Normal 80.0-94.0 [facility] Comment on above: Performed By: #### L ACT #### [facility] [address] [place] [address] Dr. Kulwant Brennan MONO # 1.0 103/ul Critically high 0.3-0.8 [facility] Comment on above: Performed By: #### L ACT #### [facility] [address] [place] [address] [address] Kulwant Brennan Monocytes/100 WBC (Bld) 10.5 % Normal 1.7-12.0 [facility] Comment on above: Performed By: #### L ACT #### [facility] [address] [place] [address] [address] Kulwant Brennan NEUT # 5.1 103/ul Normal 1.4-6.5 [facility] Comment on above: Performed By: #### L ACT #### [facility] [address] [place] [address] [address] Kulwant Brennan Neutrophils/100 WBC (Bld) 56.2 % Normal 43.0-75.0 [facility] Comment on above: Performed By: #### L ACT #### [facility] [address] [place] [address] Dr. Kulwant Brennan Platelet mean volume (Bld) [Entitic vol] 10.0 fL Normal 9.5-13.5 [facility] Comment on above: Performed By: #### L ACT #### [facility] [address] [place] [address] Dr. Kulwant Brennan PLT 251 103/ul Normal 150-450 [facility] Comment on above: Performed By: #### L ACT #### [facility] [address] [place] [address] [address] Kulwant Brennan RBC 5.19 106/ul Normal 4.70-6.10 [facility] Comment on above: Performed By: #### L ACT #### [facility] [address] [place] [address] Dr. Kulwant Brennan WBC 9.1 103/ul Normal 4.0-11.0 [facility] Comment on above: Performed By: #### L ACT #### [facility] [address] [place] [address] STROKE HEAD WOon 02-13-[address] STROKE HEAD WO EXAMINATION: CT [...] CONNER TANG Date: 2022-06-04 07:16 Normal [facility] Covid-19 PCR (CVDTB)on 05-23 SARS-CoV-2 (COVID-19) RNA MIKE+probe Ql (Unsp spec) Not detected Normal NOT DETECTED [facility] Comment on above: Result Comment: When diagnostic [...] for this test is supported by the [place] of Health and Human Service's declaration that [...] longer be used). Performed By: #### H DEBRA #### [facility] [address] [place] [address] Dr. Kulwant Brennan D-DIMERon 06-04-2022 D-DIMER 0.38 mg/L FEU Normal <=0.59 [facility] Comment on above: Performed By: #### D DIM #### [facility] [address] [place] [address] Dr. Kulwant Brennan D-DIMER COMMENTS SEE BELOW Normal [facility] Comment on [...] hospitalization. Performed By: #### D DIM #### [facility] [address] [place] [address] Dr. Kulwant Brennan PROF 14(COMP METB)on 023 Albumin [Mass/Vol] 4.1 g/dL Normal 3.4-5.0 [facility] Comment on above: Performed By: #### H STROPN #### [facility] [address] [place] [address] Dr. Kulwant Brennan Albumin/Globulin [Mass ratio] 1.1 {ratio} Normal [facility] Comment on above: Performed By: #### H STROPN #### [facility] [address] [place] [address] Dr. Kulwant Brennan ALP [Catalytic activity/Vol] 78 U/L Normal 46-116 [facility] Comment on above: Performed By: #### H STROPN #### [facility] [address] [place] [address] Dr. Kulwant Brennan ALT [Catalytic activity/Vol] 26 U/L Normal 16-63 [facility] Comment on above: Performed By: #### H STROPN #### [facility] [address] [place] [address] Dr. Kulwant Brennan Anion gap [Moles/Vol] 16.3 mmol/L Normal [facility] Comment on above: Performed By: #### H STROPN #### [facility] [address] [place] [address] [address] Kulwant Brennan AST [Catalytic activity/Vol] 18 U/L Normal 15-37 [facility] Comment on above: Performed By: #### H STROPN #### [facility] [address] [place] [address] [address] Kulwant Brennan Bilirubin [Mass/Vol] 0.4 mg/dL Normal 0.2-1.0 [facility] Comment on above: Performed By: #### H STROPN #### [facility] [address] [place] [address] [address] Kulwant Brennan Calcium [Mass/Vol] 8.4 mg/dL Critically low 8.5-10.1 [facility] Comment on above: Performed By: #### H STROPN #### [facility] [address] [place] [address] [address] Kulwant Brennan Chloride [Moles/Vol] 104 mmol/L Normal 98-107 [facility] Comment on above: Performed By: #### H STROPN #### [facility] [address] [place] [address] Dr. Kulwant Brennan CO2 [Moles/Vol] 24.8 mmol/L Normal 21.0-32.0 [facility] Comment on above: Performed By: #### H STROPN #### [facility] [address] [place] [address] [address] Kulwant Brennan Creatinine [Mass/Vol] 1.52 mg/dL Critically high 0.70-1.30 [facility] Comment on above: Performed By: #### H STROPN #### [facility] [address] [place] [address] [address] Kulwant Brennan EGFR-AF LITHUANIAN 55 mL/min/1.73m2 Critically low >=60 [facility] Comment on above: Performed By: #### H STROPN #### [facility] [address] [place] [address] [address] Kulwant Brennan EGFR-NON AF LITHUANIAN 46 mL/min/1.73m2 Critically low >=60 [facility] Comment on above: Performed By: #### H STROPN #### [facility] [address] [place] [address] [address] Kulwant Brennan Globulin (S) [Mass/Vol] 3.6 g/dL Normal [facility] Comment on above: Performed By: #### H STROPN #### [facility] [address] [address] [address] Kulwant Brennan Glucose [Mass/Vol] 102 mg/dL Normal 74-106 [facility] Comment on above: Performed By: #### H STROPN #### [facility] [address] [address] [address] Kulwant Brennan Potassium [Moles/Vol] 4.1 mmol/L Normal 3.5-5.1 [facility] Comment on above: Performed By: #### H STROPN #### [facility] [address] [place] [address] Dr. Kulwant Brennan Protein [Mass/Vol] 7.7 g/dL Normal 6.4-8.2 [facility] Comment on above: Performed By: #### H STROPN #### [facility] [address] [place] [address] Dr. Kulwant Brennan Sodium [Moles/Vol] 141 mmol/L Normal 136-145 [facility] Comment on above: Performed By: #### H STROPN #### [facility] [address] [address] [address] Kulwant Brennan Urea nitrogen [Mass/Vol] 30.0 mg/dL Critically high 7.0-18.0 [facility] Comment on above: Performed By: #### H STROPN #### [facility] [address] [place] [address] Dr. Kulwant Brennan Urea nitrogen/Creatinine [Mass ratio] 19.7 mg/mg Normal [facility] Comment on above: Performed By: #### H STROPN #### [facility] [address] [place] [address] Dr. Kulwant Brennan PROTIMEon 02-13-2023 INR Coag (PPP) [Relative time] 0.99 {INR} Normal [facility] Comment on above: Performed By: #### P TT, PT ####[facility] [address] [address]Dr. Kulwant Brennan INR GUIDELINES SEE BELOW Normal [facility] Comment on above: Result Comment: HAYDEE RED INR: 2.0 - 3.0 CONDITIONS NOT LISTED BELOW 2.5 - 3.5 FOR PROSTHETIC HEART VALVE REPLACEMENT 2.5 - 3.5 RECURRENT THROMBOSIS Performed By: #### P TT, PT ####[facility] [address] [address]Dr. Kulwant Brennan PT Coag (PPP) [Time] 10.5 s Normal 9.0-11.6 [facility] Comment on above: Performed By: #### P TT, PT ####[facility] [address] [place], [place] [address]Dr. Kulwant Brennan PTTon 06-04-2022 aPTT Coag (Bld) [Time] 30.4 s Normal 22.3-36.2 [facility] Comment on above: Performed By: #### P TT, PT ####[facility] [address] [place], [place] [address]Dr. Kulwant Brennan TROPONIN, HIGH SENSITIVITYon 06-04-2022 HSTROP 4.5 pg/mL Normal 4.0-76.1 [facility] Comment on above: Result Comment: CUT- OFF POINTS HAVE BEEN ESTABLISHED BASED ON THE FOURTH UNIVERSAL DEFINITIONS OF MYOCARDIAL INFARCTION. THE UPPER REFERENCE LIMIT (URL) OF TROPONIN, DEFINED THE 99TH PERCENTILE OF cTnI DISTRIBUTION IN A REFERENCE POPULATION, HAS BEEN CONFIRMED THE DECISION THRESHOLD FOR CT DIAGNOSIS. Performed By: #### H STROPN ####[facility] [address] [place], [place] [address]Dr. Kulwant Brennan HSTROP 4.3 pg/mL Normal 4.0-76.1 [facility] Comment on above: Result Comment: CUT- OFF POINTS HAVE BEEN ESTABLISHED BASED ON THE FOURTH UNIVERSAL DEFINITIONS OF MYOCARDIAL INFARCTION. THE UPPER REFERENCE LIMIT (URL) OF TROPONIN, DEFINED THE 99TH PERCENTILE OF cTnI DISTRIBUTION IN A REFERENCE POPULATION, HAS BEEN CONFIRMED THE DECISION THRESHOLD FOR CT DIAGNOSIS. Performed By: #### H STROPN #### [facility] [address] [place], [place] [address] Dr. Kulwant Brennan TSHon 06-04-2022 TSH 2.572 uIU/mL Normal 0.358-3.74 0 [facility] Comment on above: Performed By: #### L ACT #### [facility] [address] [place], [place] [address] Dr. Kulwant Brennan XR CHEST 1 Von [...] by: FLORENTIN PALMA Date: 2022-06-04 04:40 Normal [facility] XR CHEST 2 Von 06-04-2022 XR [...] NICOLE CASAREZ Date: 2022-06-04 16:28 Normal [facility] XR Hand Complete Left*on XR Hand Complete [...] by Chaz Moreau on 04/17/2022 1415 Normal [facility] Breastfeeding Educator ECHO LIMITED STUDYon 022 ECHO LIMITED STUDY Patient: YOLI ANTUNEZ Exam Date: 03/22/2022 : 1955 Gender:M Ordering : [facility] Admission #: [id number] Family : Order #: [id number] CLICK HERE TO VIEW EXAM ECHOCARDIOGRAM REPORT [...] M.D. on 03/22/2022 at 20:31 Normal [facility] XR Abdomen Single View (KUB) *on 03-21-2022 [...] by Chaz Moreau on 03/21/2022 0944 Normal [facility] Breastfeeding Educator AMYLASEon 02-05-2022 Amylase [Catalytic activity/Vol] 58 U/L Normal 25-115 [facility] Comment on above: Performed By: #### L IPA, YAHIR, CMP #### [facility] [address] [address] [address] Kulwant Brennan CBC AUTO DIFFon 02-05-2022 BASO # 0.1 103/ul Normal 0.0-0.1 [facility] Comment on above: Performed By: #### L ACT #### [facility] [address] [address] [address] Kulwant Brennan Basophils/100 WBC (Bld) 0.8 % Normal 0.2-2.0 [facility] Comment on above: Performed By: #### L ACT #### [facility] [address] [address] [address] Kulwant Brennan EO # 0.2 103/ul Normal 0.0-0.7 [facility] Comment on above: Performed By: #### L ACT #### [facility] [address] [address] [address] Kulwant Brennan Eosinophils/100 WBC (Bld) 2.3 % Normal 0.9-7.0 [facility] Comment on above: Performed By: #### L ACT #### [facility] [address] [place] [address] Dr. Kulwant Brennan Erythrocyte distribution width (RBC) [Ratio] 14.6 % Normal 11.0-15.0 [facility] Comment on above: Performed By: #### L ACT #### [facility] [address] [place] [address] Dr. Kulwant Brennan Hematocrit (Bld) [Volume fraction] 39.9 % Critically low 42.0-54.0 [facility] Comment on above: Performed By: #### L ACT #### [facility] [address] [place] [address] Dr. Kulwant Brennan Hemoglobin (Bld) [Mass/Vol] 12.7 g/dL Critically low 14.0-18.0 [facility] Comment on above: Performed By: #### L ACT #### [facility] [address] [place] [address] Dr. Kulwant Brennan IG # 0.03 10e3/ul Normal 0.00-0.03 [facility] Comment on above: Performed By: #### L ACT #### [facility] [address] [place] [address] Dr. Kulwant Brennan IG % 0.5 % Normal 0.0-0.5 [facility] Comment on above: Performed By: #### L ACT #### [facility] [address] [place] [address] Dr. Kulwant Brennan LYMPH # 1.9 103/ul Normal 1.2-3.8 [facility] Comment on above: Performed By: #### L ACT #### [facility] [address] [place] [address] Dr. Kulwant Brennan Lymphocytes/100 WBC (Bld) 28.3 % Normal 20.5-60.0 [facility] Comment on above: Performed By: #### L ACT #### [facility] [address] [place] [address] Dr. Kulwant Brennan MANUAL DIFF REQ NO Normal [facility] Comment on above: Performed By: #### L ACT #### [facility] [address] [address] [address] Kulwant Brennan MCH (RBC) [Entitic mass] 27.4 pg Normal 25.9-34.0 [facility] Comment on above: Performed By: #### L ACT #### [facility] [address] [address] [address] Kulwant Brennan MCHC (RBC) [Mass/Vol] 31.8 g/dL Normal 29.9-35.2 [facility] Comment on above: Performed By: #### L ACT #### [facility] [address] [place] [address] Dr. Kulwant Brennan MCV (RBC) [Entitic vol] 86.0 fL Normal 80.0-94.0 [facility] Comment on above: Performed By: #### L ACT #### [facility] [address] [place] [address] Dr. Kulwant Brennan MONO # 0.7 103/ul Normal 0.3-0.8 [facility] Comment on above: Performed By: #### L ACT #### [facility] [address] [place] [address] Dr. Kulwant Brennan Monocytes/100 WBC (Bld) 10.4 % Normal 1.7-12.0 [facility] Comment on above: Performed By: #### L ACT #### [facility] [address] [place] [address] Dr. Kulwant Brennan NEUT # 3.8 103/ul Normal 1.4-6.5 [facility] Comment on above: Performed By: #### L ACT #### [facility] [address] [place] [address] Dr. Kulwant Brennan Neutrophils/100 WBC (Bld) 57.7 % Normal 43.0-75.0 [facility] Comment on above: Performed By: #### L ACT #### [facility] [address] [place] [address] Dr. Kulwant Brennan Platelet mean volume (Bld) [Entitic vol] 9.9 fL Normal 9.5-13.5 [facility] Comment on above: Performed By: #### L ACT #### [facility] [address] [address] [address] Kulwant Brennan PLT 224 103/ul Normal 150-450 [facility] Comment on above: Performed By: #### L ACT #### [facility] [address] [id number] [address] Kulwant Brennan RBC 4.64 106/ul Critically low 4.70-6.10 [facility] Comment on above: Performed By: #### L ACT #### [facility] [address] [address] [address] Kulwant Brennan WBC 6.6 103/ul Normal 4.0-11.0 [facility] Comment on above: Performed By: #### L ACT #### [facility] [address] [place] [address] Dr. Kulwant Brennna LIPASEon 02-05-2022 Lipase [Catalytic activity/Vol] 174.0 U/L Normal 73.0-393.0 [facility] Comment on above: Performed By: #### L IPA, YAHIR, CMP #### [facility] [address] [place] [address] Dr. Kulwant Brennan PROF 14(COMP METB)on 022 Albumin [Mass/Vol] 4.2 g/dL Normal 3.4-5.0 [facility] Comment on above: Performed By: #### L IPA, YAHIR, CMP #### [facility] [address] [place] [address] Dr. Kulwant Brennan Albumin/Globulin [Mass ratio] 1.0 {ratio} Normal [facility] Comment on above: Performed By: #### L IPA, YAHIR, CMP #### [facility] [address] [place] [address] Dr. Kulwant Brennan ALP [Catalytic activity/Vol] 106 U/L Normal 46-116 [facility] Comment on above: Performed By: #### L IPA, YAHIR, CMP #### [facility] [address] [place] [address] Dr. Kulwant Brennan ALT [Catalytic activity/Vol] 91 U/L Critically high 16-63 [facility] Comment on above: Performed By: #### L YAHIR NG, CMP #### [facility] [address] [place] [address] Dr. Kulwant Brennan Anion gap [Moles/Vol] 13.8 mmol/L Normal [facility] Comment on above: Performed By: #### L YAHIR NG, CMP #### [facility] [address] [place] [address] Dr. Kulwant Brennan AST [Catalytic activity/Vol] 26 U/L Normal 15-37 [facility] Comment on above: Performed By: #### L YAHIR NG, CMP #### [facility] [address] [place] [address] Dr. Kulwant Brennan Bilirubin [Mass/Vol] 0.5 mg/dL Normal 0.2-1.0 [facility] Comment on above: Performed By: #### L YAHIR NG, CMP #### [facility] [address] [place] [address] Dr. Kulwant Brennan Calcium [Mass/Vol] 8.3 mg/dL Critically low 8.5-10.1 [facility] Comment on above: Performed By: #### L YAHIR NG, CMP #### [facility] [address] [place] [address] Dr. Kulwant Brennan Chloride [Moles/Vol] 103 mmol/L Normal 98-107 [facility] Comment on above: Performed By: #### L YAHIR NG, CMP #### [facility] [address] [place] [address] Dr. Kulwant Brennan CO2 [Moles/Vol] 26.5 mmol/L Normal 21.0-32.0 [facility] Comment on above: Performed By: #### L YAHIR NG, CMP #### [facility] [address] [place] [address] Dr. Kulwant Brennan Creatinine [Mass/Vol] 1.37 mg/dL Critically high 0.70-1.30 [facility] Comment on above: Performed By: #### L YAHIR NG, CMP #### [facility] [address] [place] [address] Dr. Kulwant Brennan EGFR-AF LITHUANIAN >60 Normal >=60 [facility] Comment on above: Performed By: #### L YAHIR NG, CMP #### [facility] [address] [address] [address] Kulwant Brennan EGFR-NON AF LITHUANIAN 52 mL/min/1.73m2 Critically low >=60 [facility] Comment on above: Performed By: #### L YAHIR NG, CMP #### [facility] [address] [address] [address] Kulwant Brennan Globulin (S) [Mass/Vol] 4.1 g/dL Normal [facility] Comment on above: Performed By: #### L YAHIR NG, CMP #### [facility] [address] [place] [address] Dr. Kulwant Brennan Glucose [Mass/Vol] 96 mg/dL Normal 74-106 [facility] Comment on above: Performed By: #### L YAHIR NG, CMP #### [facility] [address] [place] [address] Dr. Kulwant Brennan Potassium [Moles/Vol] 4.3 mmol/L Normal 3.5-5.1 [facility] Comment on above: Performed By: #### L YAHIR NG, CMP #### [facility] [address] [place] [address] Dr. Kulwant Brennan Protein [Mass/Vol] 8.3 g/dL Critically high 6.4-8.2 [facility] Comment on above: Performed By: #### L YAHIR NG, CMP #### [facility] [address] [address] [address] Kulwant Brennan Sodium [Moles/Vol] 139 mmol/L Normal 136-145 [facility] Comment on above: Performed By: #### L YAHIR NG, CMP #### [facility] [address] [place] [address] Dr. Kulwant Brennan Urea nitrogen [Mass/Vol] 27.0 mg/dL Critically high 7.0-18.0 [facility] Comment on above: Performed By: #### L YAHIR NG, CMP #### [facility] [address] [address] [address] Kulwant Brennan Urea nitrogen/Creatinine [Mass ratio] 19.7 mg/mg Normal [facility] Comment on above: Performed By: #### L YAHIR NG, CMP #### [facility] [address] [address] [address] Kulwant Brennan CBC AUTO DIFFon 01-09-2022 BASO # 0.1 103/ul Normal 0.0-0.1 [facility] Comment on above: Performed By: #### H STROPN #### [facility] [address] [address] [address] Kulwant Brennan Basophils/100 WBC (Bld) 0.5 % Normal 0.2-2.0 [facility] Comment on above: Performed By: #### H STROPN #### [facility] [address] [place] [address] Dr. Kulwant Brennan EO # 0.2 103/ul Normal 0.0-0.7 [facility] Comment on above: Performed By: #### H STROPN #### [facility] [address] [place] [address] Dr. Kulwant Brennan Eosinophils/100 WBC (Bld) 2.3 % Normal 0.9-7.0 [facility] Comment on above: Performed By: #### H STROPN #### [facility] [address] [place] [address] Dr. Kulwant Brennan Erythrocyte distribution width (RBC) [Ratio] 14.6 % Normal 11.0-15.0 [facility] Comment on above: Performed By: #### H STROPN #### [facility] [address] [address] [address] Kulwant Brennan Hematocrit (Bld) [Volume fraction] 35.8 % Critically low 42.0-54.0 [facility] Comment on above: Performed By: #### H STROPN #### [facility] [address] [place] [address] Dr. Kulwant Brennan Hemoglobin (Bld) [Mass/Vol] 11.4 g/dL Critically low 14.0-18.0 [facility] Comment on above: Performed By: #### H STROPN #### [facility] [address] [address] [address] Kulwant Brennan IG # 0.33 10e3/ul Critically high 0.00-0.03 [facility] Comment on above: Performed By: #### H STROPN #### [facility] [address] [address] [address] Kulwant Brennan IG % 3.2 % Critically high 0.0-0.5 [facility] Comment on above: Performed By: #### H STROPN #### [facility] [address] [address] [address] Kulwant Brennan LYMPH # 1.9 103/ul Normal 1.2-3.8 [facility] Comment on above: Performed By: #### H STROPN #### [facility] [address] [address] [address] Kulwant Brennan Lymphocytes/100 WBC (Bld) 18.3 % Critically low 20.5-60.0 [facility] Comment on above: Performed By: #### H STROPN #### [facility] [address] [address] [address] Kulwant Brennan MANUAL DIFF REQ NO Normal [facility] Comment on above: Performed By: #### H STROPN #### [facility] [address] [address] [address] Kulwant Brennan MCH (RBC) [Entitic mass] 26.8 pg Normal 25.9-34.0 [facility] Comment on above: Performed By: #### H STROPN #### [facility] [address] [address] [address] Kulwant Brennan MCHC (RBC) [Mass/Vol] 31.8 g/dL Normal 29.9-35.2 [facility] Comment on above: Performed By: #### H STROPN #### [facility] [address] [place] [address] Dr. Kulwant Brennan MCV (RBC) [Entitic vol] 84.0 fL Normal 80.0-94.0 [facility] Comment on above: Performed By: #### H STROPN #### [facility] [address] [address] [address] Kulwant Brennan MONO # 0.9 103/ul Critically high 0.3-0.8 [facility] Comment on above: Performed By: #### H STROPN #### [facility] [address] [address] [address] Kulwant Brennan Monocytes/100 WBC (Bld) 9.2 % Normal 1.7-12.0 [facility] Comment on above: Performed By: #### H STROPN #### [facility] [address] [address] [address] Kulwant Brennan NEUT # 6.8 103/ul Critically high 1.4-6.5 [facility] Comment on above: Performed By: #### H STROPN #### [facility] [address] [place] [address] Dr. Kulwant Brennan Neutrophils/100 WBC (Bld) 66.5 % Normal 43.0-75.0 [facility] Comment on above: Performed By: #### H STROPN #### [facility] [address] [place] [address] Dr. Kulwant Brennan Platelet mean volume (Bld) [Entitic vol] 10.5 fL Normal 9.5-13.5 [facility] Comment on above: Performed By: #### H STROPN #### [facility] [address] [place] [address] Dr. Kulwant Brennan PLT 357 103/ul Normal 150-450 [facility] Comment on above: Performed By: #### H STROPN #### [facility] [address] [address] [address] Kulwant Brennan RBC 4.26 106/ul Critically low 4.70-6.10 [facility] Comment on above: Performed By: #### H STROPN #### [facility] [address] [place] [address] Dr. Kulwant Brennan WBC 10.2 103/ul Normal 4.0-11.0 [facility] Comment on above: Performed By: #### H STROPN #### [facility] [address] [place], [place] [address] Dr. Kulwant Brennan PROF 14(COMP METB)on 022 Albumin [Mass/Vol] 3.3 g/dL Critically low 3.4-5.0 [facility] Comment on above: Performed By: #### T SH, CMP ####[facility] [address] [id number]. Kulwant Brennan Albumin/Globulin [Mass ratio] 0.8 {ratio} Normal [facility] Comment on above: Performed By: #### T SH, CMP ####[facility] [address] [address]DrAmarjit Brennan ALP [Catalytic activity/Vol] 151 U/L Critically high 46-116 [facility] Comment on above: Performed By: #### T SH, CMP ####[facility] [address] [address]Dr. Kulwant Brennan ALT [Catalytic activity/Vol] 118 U/L Critically high 16-63 [facility] Comment on above: Performed By: #### T SH, CMP ####[facility] [address] [address]DrAmarjit Brennan Anion gap [Moles/Vol] 12.3 mmol/L Normal [facility] Comment on above: Performed By: #### T SH, CMP ####[facility] [address] [address]Dr. Kulwant Brennan AST [Catalytic activity/Vol] 65 U/L Critically high 15-37 [facility] Comment on above: Performed By: #### T SH, CMP ####[facility] [address] [id number]. Kulwant Brennan Bilirubin [Mass/Vol] 0.5 mg/dL Normal 0.2-1.0 [facility] Comment on above: Performed By: #### T SH, CMP ####[facility] [address] [id number]. Kulwant Brennan Calcium [Mass/Vol] 5.3 mg/dL Critically low 8.5-10.1 [facility] Comment on above: Performed By: #### T SH, CMP ####[facility] [address] [place], [place] [address]Dr. Kulwant Brennan Chloride [Moles/Vol] 104 mmol/L Normal 98-107 [facility] Comment on above: Performed By: #### T SH, CMP ####[facility] [address] [place], [place] [address]Dr. Kulwant Brennan CO2 [Moles/Vol] 26.7 mmol/L Normal 21.0-32.0 [facility] Comment on above: Performed By: #### T SH, CMP ####[facility] [address] [place], [place] [address]Dr. Kulwant Brennan Creatinine [Mass/Vol] 2.08 mg/dL Critically high 0.70-1.30 [facility] Comment on above: Performed By: #### T RAJEEV, CMP ####[facility] [address] [place], [place] [address]Dr. Alanaselvin Mika EGFR-AF LITHUANIAN 39 mL/min/1.73m2 Critically low >=60 [facility] Comment on above: Performed By: #### T RAJEEV, CMP ####[facility] [address] [place], [place] [address]Dr. Kulwant Brennan EGFR-NON AF LITHUANIAN 32 mL/min/1.73m2 Critically low >=60 [facility] Comment on above: Performed By: #### T SH, CMP ####[facility] [address] [place], [place] [address]Dr. Kulwant Brennan Globulin (S) [Mass/Vol] 4.1 g/dL Normal [facility] Comment on above: Performed By: #### T SH, CMP ####[facility] [address] [place], [place] [address]Dr. Kulwant Brennan Glucose [Mass/Vol] 89 mg/dL Normal 74-106 [facility] Comment on above: Performed By: #### T SH, CMP ####[facility] [address] [place], [place] [address]Dr. Kulwant Brennan Potassium [Moles/Vol] 4.0 mmol/L Normal 3.5-5.1 [facility] Comment on above: Performed By: #### T RAJEEV, CMP ####[facility] [address] [address]Dr. Kulwant Brennan Protein [Mass/Vol] 7.4 g/dL Normal 6.4-8.2 [facility] Comment on above: Performed By: #### T RAJEEV, CMP ####[facility] [address] [address]Dr. Kulwant Brennan Sodium [Moles/Vol] 139 mmol/L Normal 136-145 [facility] Comment on above: Performed By: #### T RAJEEV, CMP ####[facility] [address] [place], [place] [address]Dr. Kulwant Brennan Urea nitrogen [Mass/Vol] 28.0 mg/dL Critically high 7.0-18.0 [facility] Comment on above: Performed By: #### T RAJEEV, CMP ####[facility] [address] [place], [place] [address]Dr. Kulwant Brennan Urea nitrogen/Creatinine [Mass ratio] 13.5 mg/mg Normal [facility] [facility] Comment on above: Performed By: #### T RAJEEV, CMP ####[facility] [id number] [address]Dr. Kulwant Brennan TSHon 01-09-2022 TSH 20.234 uIU/mL Critically high 0.358-3.74 0 [facility] Comment on above: Performed By: #### T RAJEEV, CMP ####[facility] [address] [address]Dr. Kulwant Brennan Cult, Bloodon 01-06-2022 Cult, Blood Specimen Description .BLOOD Special Requests RT AC 6ML Culture NO GROWTH 5 DAYS Report Status FINAL 01/06/2022 Normal [facility] Comment on above: Performed By: #### U RNA, URTPRT, UMICAO, UEOS, UA #### [id number] [place] [address] Public Policy Manager: Ronn Arias MD Cult,Bloodon 01-06-2022 Cult,Blood Specimen Description .BLOOD Special Requests LT HAND 6ML Culture NO GROWTH 5 DAYS Report Status FINAL 01/06/2022 Normal [facility] Comment on above: Performed By: #### U RNA, URTPRT, UMICAO, UEOS, UA #### [facility] [address] [place] [phone] Public Policy Manager: Ronn Arias MD KYLE SCREEN WITH REFLEXon Anti ds DNA 5.8 NINF [facility] Comment on above: Reference Range: <10.0 Negative 10.0-15.0 Equivocal >15.0 Positive ARJUN Antibodies Screen 0.3 U/mL [facility] MARYVALEF - 0.7 U/mL [facility] Comment on above: Reference Range: <0.7 Negative 0.7-1.0 Equivocal >1.0 Positive ARJUN Screen includes U1RNP,RNP70,Sm,Ro(SS-A),La(SS-B),CENP,Scl-70,Pippa-1 Nuclear Ab IF (S) [Titer] Negative NEGATIVE [facility] KYLE Screen w/reflexon 2021 KYLE Screen Negative Normal NEG [facility] Comment on above: Performed By: #### U RNA, URTPRT, UMICAO, UEOS, UA #### [facility] [address] [place] [phone] Public Policy Manager: Ronn Arias MD Anti-dsDNA 5.8 IU/mL Normal <10.0 [facility] Comment on above: Result Comment: Reference Range: <10.0 Negative 10.0-15.0 Equivocal >15.0 Positive Performed By: #### U RNA, URTPRT, UMICAO, UEOS, UA #### [facility] [place] [address] Public Policy Manager: Ronn Arias MD ARJUN Screen 0.3 U/mL Normal <0.7 [facility] Comment on above: Result Comment: Reference Range: <0.7 Negative 0.7-1.0 Equivocal >1.0 Positive ARJUN Screen includes U1RNP,RNP70,Sm,Ro(SS-A),La(SS-B),CENP,Scl-70,Pippa-1 Performed By: #### U RNA, URTPRT, UMICAO, UEOS, UA #### [facility] [address] [place] [address] Public Policy Manager: Ronn Arias MD Basic Metabolic Panelon 12-21 Anion gap [Moles/Vol] 14 mmol/L 9 - 17 mmol/L [facility] Calcium [Mass/Vol] 6.4 mg/dL Low 8.6 - 10. 4 mg/dL [facility] Chloride [Moles/Vol] 108 mmol/L High 98 - 10 7 mmol/L [facility] CO2 [Moles/Vol] 25 mmol/L 20 - 31 mmol/L [facility] Creatinine [Mass/Vol] 2.5 mg/dL High 0.7 - 1.2 mg/dL [facility] GFR 31 mL/min Low 60 - PI NF mL/min [facility] GFR Non- 26 mL/min Low 60 - PINF mL/min [facility] GFR/1.73 sq M.predicted MDRD (S/P/Bld) [Vol rate/Area] [facility] Comment on above: Average GFR for 60-6 9 years old: 85 mL/min/1.73sq m Chronic Kidney Disease: <60 mL/min/1.73sq m Kidney failure: <15 mL/min/1.73sq m eGFR calculated using average adult body mass. Additional eGFR calculator available at: http://www.Munch a [employer]unch.Schoolfy/multiple_crcl_2012.htm Glucose [Mass/Vol] 99 mg/dL 70 - 99 mg/dL [facility] Interpretation and review of laboratory results Abnormal [facility] Potassium [Moles/Vol] 4.6 mmol/L 3.7 - 5.3 mmol/L [facility] Sodium [Moles/Vol] 147 mmol/L High 135 - 144 mmol/L [facility] Urea nitrogen (BldV) [Mass/Vol] 40 mg/dL High 8 - 23 mg/dL [facility] Basic Metabolic Profon 01-05 (cont.) Normal [facility] Comment on above: Result Comment: Aver age GFR for 60-69 years old: 85 mL/min/1.73sq m Chronic Kidney Disease: <60 mL/min/1.73sq m Kidney failure: <15 mL/min/1.73sq m eGFR calculated using average adult body mass. Additional eGFR calculator available at: http://www.Appian/multiple_crcl_2012.htm Performed By: #### U RNA, URTPRT, UMICAO, UEOS, UA #### [facility] [address] [place] [phone] Public Policy Manager: Ronn Arias MD Anion gap [Moles/Vol] 14 mmol/L Normal 9-17 [facility] Comment on above: Performed By: #### U RNA, URTPRT, UMICAO, UEOS, UA #### [facility] [address] [place] [phone] Public Policy Manager: Ronn Arias MD Calcium [Mass/Vol] 6.4 mg/dL Low 8.6-10.4 [facility] Comment on above: Performed By: #### U RNA, URTPRT, UMICAO, UEOS, UA #### [facility] [address] [place] [address] Public Policy Manager: Ronn Arias MD Chloride [Moles/Vol] 108 mmol/L High 98-107 [facility] Comment on above: Performed By: #### U RNA, URTPRT, UMICAO, UEOS, UA #### [facility] [address] [place] [address] [phone] Public Policy Manager: Ronn Arias MD CO2 [Moles/Vol] 25 mmol/L Normal 20-31 [facility] Comment on above: Performed By: #### U RNA, URTPRT, UMICAO, UEOS, UA #### [facility] [address] [place] [phone] Public Policy Manager: Ronn Arias MD Creatinine [Mass/Vol] 2.50 mg/dL High 0.70-1.20 [facility] Comment on above: Performed By: #### U RNA, URTPRT, UMICAO, UEOS, UA #### [facility] [address] [place] [phone] Public Policy Manager: Ronn Arias MD GFR, Amer 31 mL/min Low >60 [facility] Comment on above: Performed By: #### U RNA, URTPRT, UMICAO, UEOS, UA #### [facility] [address] [place] [phone] Public Policy Manager: Ronn Arias MD GFR,non Amer 26 mL/min Low >60 [facility] Comment on above: Performed By: #### U RNA, URTPRT, UMICAO, UEOS, UA #### [facility] [address] [place] [phone] Public Policy Manager: Ronn Arias MD Glucose [Mass/Vol] 99 mg/dL Normal 70-99 [facility] Comment on above: Performed By: #### U RNA, URTPRT, UMICAO, UEOS, UA #### [facility] [address] [place] [address] Public Policy Manager: Ronn Arias MD Potassium [Moles/Vol] 4.6 mmol/L Normal 3.7-5.3 [facility] Comment on above: Performed By: #### U RNA, URTPRT, UMICAO, UEOS, UA #### [facility] [address] [place] [address] Public Policy Manager: Ronn Arias MD Sodium [Moles/Vol] 147 mmol/L High 135-144 [facility] Comment on above: Performed By: #### U RNA, URTPRT, UMICAO, UEOS, UA #### [facility] [address] [place], [place] [phone] Public Policy Manager: Ronn Arias MD Urea nitrogen [Mass/Vol] 40 mg/dL High 8-23 [facility] Comment on above: Performed By: #### U RNA, URTPRT, UMICAO, UEOS, UA #### [facility] [address] [place], [place] [phone] Public Policy Manager: Ronn Arias MD IMMUNOFIXATION SERUM PROFILE on 01-05-2022 Pathologist Cyto stain Nom (Cvx/Vag) [ID] Reviewed by pathologist: Kailee Portillo M.D. [facility] Serum IFX Interp IMMUNOFIXATION IS NE GATIVE FOR MONOCLONAL IMMUNOGLOBULIN. [facility] Immunofixation,Bloodon 01-05 IFX - Interpret. IMMUNOFIXATION IS NE GATIVE FOR MONOCLONAL IMMUNOGLOBULIN. [facility] Comment on above: Performed By: #### U RNA, URTPRT, UMICAO, UEOS, UA #### [facility] [address] [place] [phone] Public Policy Manager: Ronn Arias MD Pathologist Review: Reviewed by patholog ist: Kailee Portillo M.D. [facility] Comment on above: Performed By: #### U RNA, URTPRT, UMICAO, UEOS, UA #### [facility] [address] [place] [address] Public Policy Manager: Ronn Arias MD Basic Metab w/rfx MGon 01-04 (cont.) [facility] Comment on above: Result Comment: Aver age GFR for 60-69 years old: 85 mL/min/1.73sq m Chronic Kidney Disease: <60 mL/min/1.73sq m Kidney failure: <15 mL/min/1.73sq m eGFR calculated using average adult body mass. Additional eGFR calculator available at: http://www.Munch a Bunch.Schoolfy/multiple_crcl_2012.htm Performed By: #### U RNA, URTPRT, UMICAO, UEOS, UA #### [facility] [address] [place] [phone] Public Policy Manager: Ronn Arias MD Anion gap [Moles/Vol] 13 mmol/L Normal 9-17 [facility] Comment on above: Performed By: #### U RNA, URTPRT, UMICAO, UEOS, UA #### [facility] [address] [place] [phone] Public Policy Manager: Ronn Arias MD Calcium [Mass/Vol] 6.6 mg/dL Low 8.6-10.4 [facility] Comment on above: Performed By: #### U RNA, URTPRT, UMICAO, UEOS, UA #### [facility] [address] [place] [phone] Public Policy Manager: Ronn Arias MD Chloride [Moles/Vol] 107 mmol/L Normal 98-107 [facility] Comment on above: Performed By: #### U RNA, URTPRT, UMICAO, UEOS, UA #### [facility] [address] [place] [address] Public Policy Manager: Ronn Arias MD CO2 [Moles/Vol] 21 mmol/L Normal 20-31 [facility] Comment on above: Performed By: #### U RNA, URTPRT, UMICAO, UEOS, UA #### [facility] [address] [place] [phone] Public Policy Manager: Ronn Arias MD Creatinine [Mass/Vol] 3.07 mg/dL High 0.70-1.20 [facility] Comment on above: Performed By: #### U RNA, URTPRT, UMICAO, UEOS, UA #### [facility] [address] [place] [phone] Public Policy Manager: Ronn Arias MD GFR, Amer 25 mL/min Low >60 [facility] Comment on above: Performed By: #### U RNA, URTPRT, UMICAO, UEOS, UA #### [facility] [address] [place] [phone] Public Policy Manager: Ronn Arias MD GFR,non Amer 20 mL/min Low >60 [facility] Comment on above: Performed By: #### U RNA, URTPRT, UMICAO, UEOS, UA #### [address] [address] Public Policy Manager: Ronn Arias MD Glucose [Mass/Vol] 95 mg/dL Normal 70-99 [facility] Comment on above: Performed By: #### U RNA, URTPRT, UMICAO, UEOS, UA #### [facility] [address] [place] [phone] Public Policy Manager: Ronn Arias MD Potassium [Moles/Vol] 4.3 mmol/L Normal 3.7-5.3 [facility] Comment on above: Performed By: #### U RNA, URTPRT, UMICAO, UEOS, UA #### [facility] [address] [place] [address] Public Policy Manager: Ronn Arias MD Sodium [Moles/Vol] 141 mmol/L Normal 135-144 [facility] Comment on above: Performed By: #### U RNA, URTPRT, UMICAO, UEOS, UA #### [facility] [address] [place] [phone] Public Policy Manager: Ronn Arias MD Urea nitrogen [Mass/Vol] 54 mg/dL High 8-23 [facility] Comment on above: Performed By: #### U RNA, URTPRT, UMCATYO UEOS, UA #### [facility] [address] [place] [address] Public Policy Manager: Ronn Arias MD Basic Metabolic Panel w/ Ref luz to MGon 01-04-2022 Anion gap [Moles/Vol] 13 mmol/L 9 - 17 mmol/L [facility] Calcium [Mass/Vol] 6.6 mg/dL Low 8.6 - 10. 4 mg/dL [facility] Chloride [Moles/Vol] 107 mmol/L 98 - 10 7 mmol/L [facility] CO2 [Moles/Vol] 21 mmol/L 20 - 31 mmol/L [facility] Creatinine [Mass/Vol] 3.07 mg/dL High 0.7 - 1.2 mg/dL [facility] GFR 25 mL/min Low 60 - PI NF mL/min [facility] GFR Non- 20 mL/min Low 60 - PINF mL/min [facility] GFR/1.73 sq M.predicted MDRD (S/P/Bld) [Vol rate/Area] [facility] Comment on above: Average GFR for 60-6 9 years old: 85 mL/min/1.73sq m Chronic Kidney Disease: <60 mL/min/1.73sq m Kidney failure: <15 mL/min/1.73sq m eGFR calculated using average adult body mass. Additional eGFR calculator available at: http://www.Munch a Bunch.Schoolfy/multiple_crcl_2012.htm Glucose [Mass/Vol] 95 mg/dL 70 - 99 mg/dL [facility] Interpretation and review of laboratory results Abnormal [facility] Potassium [Moles/Vol] 4.3 mmol/L 3.7 - 5.3 mmol/L [facility] Sodium [Moles/Vol] 141 mmol/L 135 - 144 mmol/L [facility] Urea nitrogen (BldV) [Mass/Vol] 54 mg/dL High 8 - 23 mg/dL [facility] CBC with Auto Differentialon 01-04-2022 Absolute Eos # 0.19 [facility] Absolute Immature Granulocyte 0.09 [facility] Absolute Lymph # 1.34 [facility] Absolute [place] # 1.01 [facility] Basophils Absolute [facility] Basophils/100 WBC (Bld) 0 % 0 - 2 % [facility] Eosinophils/100 WBC (Bld) 2 % 1 - 4 % [facility] Hematocrit (Bld) [Volume fraction] 28.4 % Low 40.7 - 50.3 % [facility] Hemoglobin (Bld) [Mass/Vol] 9.3 g/dL Low 13 - 17 g/dL [facility] Immature granulocytes/100 WBC (Bld) 1 % High 0 [facility] Interpretation and review of laboratory results Abnormal [facility] Lymphocytes/100 WBC (Bld) 11 % Low 24 - 43 % [facility] MCH (RBC) [Entitic mass] 27.4 pg 25.2 - 33.5 pg [facility] MCHC (RBC) [Mass/Vol] 32.7 g/dL 28.4 - 34.8 g/dL [facility] MCV (RBC) [Entitic vol] 83.8 fL 82.6 - 102.9 fL [facility] Monocytes/100 WBC (Bld) 8 % 3 - 12 % [facility] NRBC Automated 0.0 0.0 per 100 WBC [facility] Platelet distribution width (Bld) [Ratio] 14.3 % 11.8 - 14.4 % [facility] Platelet mean volume (Bld) [Entitic vol] 10.6 fL 8.1 - 13.5 fL [facility] Platelets (Bld) [#/Vol] 177 10*3/uL [facility] RBC (Bld) [#/Vol] 3.39 10*6/uL Low 4.21 - 5.77 m/uL [facility] Segmented neutrophils/100 WBC (Bld) 78 % High 36 - 65 % [facility] Segs Absolute 9.54 High [facility] WBC (Bld) [#/Vol] 12.2 10*3/uL High [facility] CBC with Diffon 01-04-2022 Abs. Basophil <0.03 Normal 0.00-0.20 [facility] Comment on above: Performed By: #### U RNA, URTPRT, UMICAO, UEOS, UA #### [facility] [address] [place] [phone] Public Policy Manager: Ronn Arias MD Abs.Imm.Granulocyte 0.09 k/uL Normal 0.00-0.30 [facility] Comment on above: Performed By: #### U RNA, URTPRT, UMICAO, UEOS, UA #### [facility] [address] [place] [phone] Public Policy Manager: Ronn Arias MD Abs.Neutrophil (Seg) 9.54 k/uL High 1.50-8.10 [facility] Comment on above: Performed By: #### U RNA, URTPRT, UMICAO, UEOS, UA #### [facility] [address] [place] [address] Public Policy Manager: Ronn Arias MD Basophils/100 WBC (Bld) 0 % Normal 0-2 [facility] Comment on above: Performed By: #### U RNA, URTPRT, UMICAO, UEOS, UA #### [facility] [address] [place] [phone] Public Policy Manager: Ronn Arias MD Eosinophils (Bld) [#/Vol] 0.19 10*3/uL Normal 0.00-0.44 [facility] Comment on above: Performed By: #### U RNA, URTPRT, UMICAO, UEOS, UA #### [employer] [address] [place] [address] Public Policy Manager: Ronn Arias MD Eosinophils/100 WBC (Bld) 2 % Normal 1-4 [facility] Comment on above: Performed By: #### U RNA, URTPRT, UMICAO, UEOS, UA #### [facility] [address] [place] [phone] Public Policy Manager: Ronn Arias MD Immature granulocytes/100 WBC (Bld) 1 % High 0 [facility] Comment on above: Performed By: #### U RNA, URTPRT, UMICAO, UEOS, UA #### [address] [address] Public Policy Manager: Ronn Arias MD Lymphocytes (Bld) [#/Vol] 1.34 10*3/uL Normal 1.10-3.70 [facility] Comment on above: Performed By: #### U RNA, URTPRT, UMICAO, UEOS, UA #### [facility] [address] [place] [address] Public Policy Manager: Ronn Arias MD Lymphocytes/100 WBC (Bld) 11 % Low 24-43 [facility] Comment on above: Performed By: #### U RNA, URTPRT, UMICAO, UEOS, UA #### [address] [address] Public Policy Manager: Ronn Arias MD Monocytes (Bld) [#/Vol] 1.01 10*3/uL Normal 0.10-1.20 [facility] Comment on above: Performed By: #### U RNA, URTPRT, UMICAO, UEOS, UA #### [facility] [employer] [address] [place] [phone] Public Policy Manager: Ronn Arias MD Monocytes/100 WBC (Bld) 8 % Normal 3-12 [facility] Comment on above: Performed By: #### U RNA, URTPRT, UMICAO, UEOS, UA #### [facility] [place] [address] Public Policy Manager: Ronn Arias MD Neutrophil (Seg) 78 % High 36-65 [facility] Comment on above: Performed By: #### U RNA, URTPRT, UMICAO, UEOS, UA #### [facility] [address] [place] [phone] Public Policy Manager: Ronn Arias MD Erythrocyte distribution width (RBC) [Ratio] 14.3 % Normal 11.8-14.4 [facility] Comment on above: Performed By: #### U RNA, URTPRT, UMICAO, UEOS, UA #### [facility] [address] [place] [phone] Public Policy Manager: Ronn Arias MD Hematocrit (Bld) [Volume fraction] 28.4 % Low 40.7-50.3 [facility] Comment on above: Performed By: #### U RNA, URTPRT, UMICAO, UEOS, UA #### [address] [address] Public Policy Manager: Ronn Arias MD Hemoglobin (Bld) [Mass/Vol] 9.3 g/dL Low 13.0-17.0 [facility] Comment on above: Performed By: #### U RNA, URTPRT, UMICAO, UEOS, UA #### [facility] [address] [place] [phone] Public Policy Manager: Ronn Arias MD MCH (RBC) [Entitic mass] 27.4 pg Normal 25.2-33.5 [facility] Comment on above: Performed By: #### U RNA, URTPRT, UMICAO, UEOS, UA #### [facility] [address] [place] [phone] Public Policy Manager: Ronn Arias MD MCHC (RBC) [Mass/Vol] 32.7 g/dL Normal 28.4-34.8 [facility] Comment on above: Performed By: #### U RNA, URTPRT, UMICAO, UEOS, UA #### [address] [address] Public Policy Manager: Ronn Arias MD MCV (RBC) [Entitic vol] 83.8 fL Normal 82.6-102.9 [facility] Comment on above: Performed By: #### U RNA, URTPRT, UMICAO, UEOS, UA #### [address] [address] Public Policy Manager: Ronn Arias MD NRBC Automated 0.0 per 100 WBC Normal 0.0 [facility] Comment on above: Performed By: #### U RNA, URTPRT, UMICAO, UEOS, UA #### [address] [address] Public Policy Manager: Ronn Arias MD Platelet mean volume (Bld) [Entitic vol] 10.6 fL Normal 8.1-13.5 [facility] Comment on above: Performed By: #### U RNA, URTPRT, UMICAO, UEOS, UA #### [address] [address] Public Policy Manager: Ronn Arias MD Platelets (Bld) [#/Vol] 177 10*3/uL Normal 138-453 [facility] Comment on above: Performed By: #### U RNA, URTPRT, UMICAO, UEOS, UA #### [address] [address] Public Policy Manager: Ronn Arias MD RBC (Bld) [#/Vol] 3.39 10*6/uL Low 4.21-5.77 [facility] Comment on above: Performed By: #### U RNA, URTPRT, UMICAO, UEOS, UA #### [address] [address] Public Policy Manager: Ronn Arias MD WBC (Bld) [#/Vol] 12.2 10*3/uL High 3.5-11.3 [facility] Comment on above: Performed By: #### U RNA, URTPRT, UMICAO, UEOS, UA #### [address] [address] Public Policy Manager: Ronn Arias MD Basic Metab w/rfx MGon 01-03 (cont.) Normal [facility] Comment on above: Result Comment: Aver age GFR for 60-69 years old: 85 mL/min/1.73sq m Chronic Kidney Disease: <60 mL/min/1.73sq m Kidney failure: <15 mL/min/1.73sq m eGFR calculated using average adult body mass. Additional eGFR calculator available at: http://www.Munch [employer]unch.Schoolfy/multiple_crcl_2012.htm Performed By: #### L ACDS #### [address] [address] Public Policy Manager: Ronn Arias MD Anion gap [Moles/Vol] 16 mmol/L Normal 9-17 [facility] Comment on above: Performed By: #### L ACDS #### [address] [address] Public Policy Manager: Ronn Arias MD Calcium [Mass/Vol] 6.9 mg/dL Low 8.6-10.4 [facility] Comment on above: Performed By: #### L ACDS #### [facility] [employer] [address] [place] [address] Public Policy Manager: Ronn Arias MD Chloride [Moles/Vol] 106 mmol/L Normal 98-107 [facility] Comment on above: Performed By: #### L ACDS #### [address] [address] Public Policy Manager: Ronn Arias MD CO2 [Moles/Vol] 16 mmol/L Low 20-31 [facility] Comment on above: Performed By: #### L ACDS #### [address] [address] Public Policy Manager: Ronn Arias MD Creatinine [Mass/Vol] 3.44 mg/dL High 0.70-1.20 [facility] Comment on above: Performed By: #### L ACDS #### [address] [address] Public Policy Manager: Ronn Arias MD GFR, Amer 22 mL/min Low >60 [facility] Comment on above: Performed By: #### L ACDS #### [address] [address] Public Policy Manager: Ronn Arias MD GFR,non Amer 18 mL/min Low >60 [facility] Comment on above: Performed By: #### L ACDS #### [address] [address] Public Policy Manager: Ronn Arias MD Glucose [Mass/Vol] 138 mg/dL High 70-99 [facility] Comment on above: Performed By: #### L ACDS #### [address] [address] Public Policy Manager: Ronn Arias MD Potassium [Moles/Vol] 4.8 mmol/L Normal 3.7-5.3 [facility] Comment on above: Performed By: #### L ACDS #### [address] [address] Public Policy Manager: Ronn Arias MD Sodium [Moles/Vol] 138 mmol/L Normal 135-144 [facility] Comment on above: Performed By: #### L ACDS #### [facility] [address] [place], [place] [phone] Public Policy Manager: Ronn Arias MD Urea nitrogen [Mass/Vol] 53 mg/dL High 8- [facility] Comment on above: Performed By: #### L ACDS #### [facility] [address] [place], [place] [phone] Public Policy Manager: Ronn Arias MD Basic Metabolic Panel w/ Ref luz to MGon 01-03-2022 Anion gap [Moles/Vol] 16 mmol/L 9 - 17 mmol/L [facility] Calcium [Mass/Vol] 6.9 mg/dL Low 8.6 - 10. 4 mg/dL [facility] Chloride [Moles/Vol] 106 mmol/L 98 - 10 7 mmol/L [facility] CO2 [Moles/Vol] 16 mmol/L Low 20 - 31 mmol/L [facility] Creatinine [Mass/Vol] 3.44 mg/dL High 0.7 - 1.2 mg/dL [facility] GFR 22 mL/min Low 60 - PI NF mL/min [facility] GFR Non- 18 mL/min Low 60 - PINF mL/min [facility] GFR/1.73 sq M.predicted MDRD (S/P/Bld) [Vol rate/Area] [facility] Comment on above: Average GFR for 60-6 9 years old: 85 mL/min/1.73sq m Chronic Kidney Disease: <60 mL/min/1.73sq m Kidney failure: <15 mL/min/1.73sq m eGFR calculated using average adult body mass. Additional eGFR calculator available at: http://www.Munch a Bunch.Schoolfy/multiple_crcl_2012.htm Glucose [Mass/Vol] 138 mg/dL High 70 - 99 mg/dL [facility] Potassium [Moles/Vol] 4.8 mmol/L 3.7 - 5.3 mmol/L [facility] Sodium [Moles/Vol] 138 mmol/L 135 - 144 mmol/L [facility] Urea nitrogen (BldV) [Mass/Vol] 53 mg/dL High 8 - 23 mg/dL [facility] C3on 01-03-2022 C3 108 mg/dL Normal 90-180 [facility] Comment on above: Performed By: #### U RNA, URTPRT, UMICAO, UEOS, UA #### [facility] [address] [place] [address] Public Policy Manager: Ronn Arias MD C3 COMPLEMENTon 01-03-2022 Complement C3 108 mg/dL 90 - 180 mg/dL [facility] C4on 01-03-2022 C4 21 mg/dL Normal 10-40 [facility] Comment on above: Performed By: #### U RNA, URTPRT, UMICAO, UEOS, UA #### [facility] [address] [place] [address] Public Policy Manager: Ronn Arias MD C4 COMPLEMENTon 01-03-2022 Complement C4 21 mg/dL 10 - 40 mg/dL [facility] CBC with Auto Differentialon 01-03-2022 Absolute Eos # [facility] Absolute Immature Granulocyte 0.09 [facility] Absolute Lymph # 0.76 Low [facility] Absolute [place] # 0.39 [facility] Basophils Absolute [facility] Basophils/100 WBC (Bld) 0 % 0 - 2 % [facility] Eosinophils/100 WBC (Bld) 0 % Low 1 - 4 % [facility] Hematocrit (Bld) [Volume fraction] 31.4 % Low 40.7 - 50.3 % [facility] Hemoglobin (Bld) [Mass/Vol] 10.3 g/dL Low 13 - 17 g/dL [facility] Immature granulocytes/100 WBC (Bld) 1 % High 0 [facility] Interpretation and review of laboratory results Abnormal [facility] Lymphocytes/100 WBC (Bld) 6 % Low 24 - 43 % [facility] MCH (RBC) [Entitic mass] 27.5 pg 25.2 - 33.5 pg [facility] MCHC (RBC) [Mass/Vol] 32.8 g/dL 28.4 - 34.8 g/dL [facility] MCV (RBC) [Entitic vol] 83.7 fL 82.6 - 102.9 fL [facility] Monocytes/100 WBC (Bld) 3 % 3 - 12 % [facility] NRBC Automated 0.0 0.0 per 100 WBC [facility] Platelet distribution width (Bld) [Ratio] 14.5 % High 11.8 - 14.4 % [facility] Platelet mean volume (Bld) [Entitic vol] 10.9 fL 8.1 - 13.5 fL [facility] Platelets (Bld) [#/Vol] 170 10*3/uL [facility] RBC (Bld) [#/Vol] 3.75 10*6/uL Low 4.21 - 5.77 m/uL [facility] RBC (Bld) [#/Vol] ANISOCYTOSIS PRESENT [facility] Segmented neutrophils/100 WBC (Bld) 90 % High 36 - 65 % [facility] Segs Absolute 11.26 High [facility] WBC (Bld) [#/Vol] 12.5 10*3/uL High [facility] CBC with Diffon 01-03-2022 Abs. Basophil <0.03 Normal 0.00-0.20 [facility] Comment on above: Performed By: #### L ACDS #### [facility], [place] [phone] Public Policy Manager: Ronn Arias MD Abs. Eosinophil <0.03 Normal 0.00-0.44 [facility] Comment on above: Performed By: #### L ACDS #### [facility], [place] [phone] Public Policy Manager: Ronn Arias MD Abs.Imm.Granulocyte 0.09 k/uL Normal 0.00-0.30 [facility] Comment on above: Performed By: #### L ACDS #### [address] [address] Public Policy Manager: Ronn Arias MD Abs.Neutrophil (Seg) 11.26 k/uL High 1.50-8.10 [facility] Comment on above: Performed By: #### L ACDS #### [address] [address] Public Policy Manager: Ronn Arias MD Basophils/100 WBC (Bld) 0 % Normal 0-2 [facility] Comment on above: Performed By: #### L ACDS #### [address] [address] Public Policy Manager: Ronn Arias MD Eosinophils/100 WBC (Bld) 0 % Low 1-4 [facility] Comment on above: Performed By: #### L ACDS #### [address] [address] Public Policy Manager: Ronn Arias MD Erythrocyte distribution width (RBC) [Ratio] 14.5 % High 11.8-14.4 [facility] Comment on above: Performed By: #### L ACDS #### [address] [address] Public Policy Manager: Ronn Arias MD Hematocrit (Bld) [Volume fraction] 31.4 % Low 40.7-50.3 [facility] Comment on above: Performed By: #### L ACDS #### [address] [address] Public Policy Manager: Ronn Arias MD Hemoglobin (Bld) [Mass/Vol] 10.3 g/dL Low 13.0-17.0 [facility] Comment on above: Performed By: #### L ACDS #### [address] [address] Public Policy Manager: Ronn Arias MD Immature granulocytes/100 WBC (Bld) 1 % High 0 [facility] Comment on above: Performed By: #### L ACDS #### [address] [address] Public Policy Manager: Ronn Arias MD Lymphocytes (Bld) [#/Vol] 0.76 10*3/uL Low 1.10-3.70 [facility] Comment on above: Performed By: #### L ACDS #### [address] [address] Public Policy Manager: Ronn Arias MD Lymphocytes/100 WBC (Bld) 6 % Low 24-43 [facility] Comment on above: Performed By: #### L ACDS #### [address] [address] Public Policy Manager: Ronn Arias MD MCH (RBC) [Entitic mass] 27.5 pg Normal 25.2-33.5 [facility] Comment on above: Performed By: #### L ACDS #### [address] [address] Public Policy Manager: Ronn Arias MD MCHC (RBC) [Mass/Vol] 32.8 g/dL Normal 28.4-34.8 [facility] Comment on above: Performed By: #### L ACDS #### [address] [address] Public Policy Manager: Ronn Arias MD MCV (RBC) [Entitic vol] 83.7 fL Normal 82.6-102.9 [facility] Comment on above: Performed By: #### L ACDS #### [address] [address] Public Policy Manager: Ronn Arias MD Monocytes (Bld) [#/Vol] 0.39 10*3/uL Normal 0.10-1.20 [facility] Comment on above: Performed By: #### L ACDS #### [address] [address] Public Policy Manager: Ronn Arias MD Monocytes/100 WBC (Bld) 3 % Normal 3-12 [facility] Comment on above: Performed By: #### L ACDS #### [address] [address] Public Policy Manager: Ronn Arias MD Neutrophil (Seg) 90 % High 36-65 [facility] Comment on above: Performed By: #### L ACDS #### [address] [address] Public Policy Manager: Ronn Arias MD NRBC Automated 0.0 per 100 WBC Normal 0.0 [facility] Comment on above: Performed By: #### L ACDS #### [address] [address] Public Policy Manager: Ronn Arias MD Platelet mean volume (Bld) [Entitic vol] 10.9 fL Normal 8.1-13.5 [facility] Comment on above: Performed By: #### L ACDS #### [address] [address] Public Policy Manager: Ronn Arias MD Platelets (Bld) [#/Vol] 170 10*3/uL Normal 138-453 [facility] Comment on above: Performed By: #### L ACDS #### [address] [address] Public Policy Manager: Ronn Arias MD RBC (Bld) [#/Vol] 3.75 10*6/uL Low 4.21-5.77 [facility] Comment on above: Performed By: #### L ACDS #### [address] [address] Public Policy Manager: Ronn Arias MD RBC morphology finding Nom (Bld) ANISOCYTOSIS PRESENT Normal [facility] Comment on above: Performed By: #### L ACDS #### [address] [address] Public Policy Manager: Ronn Arias MD WBC (Bld) [#/Vol] 12.5 10*3/uL High 3.5-11.3 [facility] Comment on above: Performed By: #### L ACDS #### [address] [address] Public Policy Manager: Ronn Arias MD EOSINOPHILS, URINEon 022 Eosinophil, Ur NONE SEEN NONE SEEN [facility] Eosinophils, Urineon 022 Eosinophils, Urine NONE SEEN Normal NSN [facility] Comment on above: Performed By: #### U RNA, URTPRT, UMICAO, UEOS, UA #### [address] [address] Public Policy Manager: Ronn Arias MD Free [place] + Lambdaon 2021 Free [place] Lt Chains 4.01 mg/dL High 0.37-1.94 [facility] Comment on above: Performed By: #### U RNA, URTPRT, UMICAO, UEOS, UA #### [address] [address] Public Policy Manager: Ronn Arias MD Free [place]/Lambda Rat 1.94 High 0.26-1.65 [facility] Comment on above: Performed By: #### U RNA, URTPRT, UMICAO, UEOS, UA #### [address] [address] Public Policy Manager: Ronn Arias MD Free Lambda Lt Chains 2.07 mg/dL Normal 0.57-2.63 [facility] Comment on above: Performed By: #### U RNA, URTPRT, UMICAO, UEOS, UA #### [facility] [address], [place] [phone] Public Policy Manager: Ronn Arias MD Hepatic Function Panelon Albumin [Mass/Vol] 3.2 g/dL Low 3.5 - 5.2 g/dL [facility] Albumin/Globulin [Mass ratio] 0.9 {ratio} Low 1 - 2.5 [facility] ALP (Bld) [Catalytic activity/Vol] 104 U/L 40 - 129 U/L [facility] ALT [Catalytic activity/Vol] 94 U/L High 5 - 41 U/L [facility] AST [Catalytic activity/Vol] 49 U/L High NINF - 40 U/L [facility] Bilirubin [Mass/Vol] 1.1 mg/dL 0.3 - 1 .2 mg/dL [facility] Bilirubin, Indirect 0.5 mg/dL 0 - 1 mg/dL [facility] Bilirubin.indirect [Mass/Vol] 0.6 mg/dL High NINF - 0.31 mg/dL [facility] Free PSA/Total PSA [Mass fraction] 6.7 g/dL 6.4 - 8.3 g/dL [facility] [place]/Lambda Quantitative Fr ee Light Chains, Serumon 01-03-2022 Free [place]/Lambda Ratio 1.94 High 0.26 - 1.65 [facility] Interpretation and review of laboratory results Abnormal [facility] [place] Free Light Chains QNT 4.01 mg/dL High 0.37 - 1.94 mg/dL [facility] Lambda Free Light Chains QNT 2.07 mg/dL 0.57 - 2.63 mg/dL [facility] Lactate, Sepsison 01-03-2022 Lactic Acid,Sep Wbld 1.8 mmol/L Normal 0.5-1.9 [facility] Comment on above: Performed By: #### L ACDS #### [facility] [address], [place] [phone] Public Policy Manager: Ronn Arias MD Lactic Acid, Sepsis, Whole Blood 1.8 mmol/L 0.5 - 1.9 mmol/L [facility] Lactic Acid,Sep Wbld 1.4 mmol/L Normal 0.5-1.9 [facility] Comment on above: Performed By: #### U RNA, URTPRT, UMICAO, UEOS, UA #### [facility] [address] [place] [phone] Public Policy Manager: Ronn Arias MD Lactic Acid, Sepsis, Whole Blood 1.4 mmol/L 0.5 - 1.9 mmol/L [facility] Lactic Acid,Sep Wbld 1.5 mmol/L Normal 0.5-1.9 [facility] Comment on above: Performed By: #### L ACDS #### [facility] [address] [place] [phone] Public Policy Manager: Ronn Arias MD Lactic Acid, Sepsis, Whole Blood 1.5 mmol/L 0.5 - 1.9 mmol/L [facility] Lactic Acid,Sep Wbld 1.2 mmol/L Normal 0.5-1.9 [facility] Comment on above: Performed By: #### L ACDS #### [facility] [address] [place] [phone] Public Policy Manager: Ronn Arias MD Lipaseon 1 Lipase [Catalytic activity/Vol] 250 U/L High 13-60 [facility] Comment on above: Performed By: #### L ACDS #### [facility] [address] [place] [phone] Public Policy Manager: Ronn Arias MD Lipase [Catalytic activity/Vol] 250 U/L High 13 - 60 U/L [facility] Liver Profileon 01-03-2022 Albumin [Mass/Vol] 3.2 g/dL Low 3.5-5.2 [facility] Comment on above: Performed By: #### L ACDS #### [address] [address] Public Policy Manager: Ronn Arias MD Albumin/Glob Ratio 0.9 Low 1.0-2.5 [facility] Comment on above: Performed By: #### L ACDS #### [address] [address] Public Policy Manager: Ronn Arias MD Alkaline Phos 104 U/L Normal 40-129 [facility] Comment on above: Performed By: #### L ACDS #### [address] [address] Public Policy Manager: Ronn Arias MD ALT [Catalytic activity/Vol] 94 U/L High 5-41 [facility] Comment on above: Performed By: #### L ACDS #### [address] [address] Public Policy Manager: Ronn Arias MD AST [Catalytic activity/Vol] 49 U/L High <40 [facility] Comment on above: Performed By: #### L ACDS #### [address] [address] Public Policy Manager: Ronn Arias MD Bilirubin [Mass/Vol] 1.1 mg/dL Normal 0.3-1.2 [facility] Comment on above: Performed By: #### L ACDS #### [address] [address] Public Policy Manager: Ronn Arias MD Bilirubin, Indirect 0.5 mg/dL Normal 0.00-1.00 [facility] Comment on above: Performed By: #### L ACDS #### [address] [address] Public Policy Manager: Ronn Arias MD Bilirubin.indirect [Mass/Vol] 0.6 mg/dL High <0.31 [facility] Comment on above: Performed By: #### L ACDS #### [facility] [address], [place] [phone] Public Policy Manager: Ronn Arias MD Protein [Mass/Vol] 6.7 g/dL Normal 6.4-8.3 [facility] Comment on above: Performed By: #### L ACDS #### [facility] [address], [place] [phone] Public Policy Manager: Ronn Arias MD Microscopic Urinalysison Casts UA 2 TO 5 HYALINE Refer ence range defined for non-centrifuged specimen. [facility] Epithelial Cells UA None [facility] RBC, UA 2 TO 5 [facility] [employer] Comment on above: Reference range defi juan for non-centrifuged specimen. WBC, UA 2 TO 5 [facility] No Panel Informationon 01-03 [facility] Interpretation and review of laboratory results Abnormal [facility] Procalcitoninon 01-03-2022 Procalcitonin 16.48 ng/mL High <0.09 [facility] Comment on above: Result Comment: Suspected [...] entered into the Change in Procalcitonin Calculator (www.lxkcls-qqu-tyfhveonus.com) to determine the patient's Mortality Risk Prognosis In healthy neonates, plasma Procalcitonin (PCT) concentrations increase gradually after , reaching peak values at about 24 hours of age then decrease to normal values below 0.5 ng/mL by 48-72 hours of age. Performed By: #### L ACDS #### [facility] [address] [place] [address] Public Policy Manager: Ronn Arias MD Interpretation and review of laboratory results Abnormal [facility] [employer] Procalcitonin 16.48 ng/mL High NINF - 0.09 ng/mL [facility] Comment on above: Suspected Sepsis: <0.50 ng/mL [...] entered into the Change in Procalcitonin Calculator (www.gztuwa-bnr-jfdtvkqevt.Schoolfy) to determine the patient's Mortality Risk Prognosis In healthy neonates, plasma Procalcitonin (PCT) concentrations increase gradually after , reaching peak values at about 24 hours of age then decrease to normal values below 0.5 ng/mL by 48-72 hours of age. [facility] [employer] Protein / creatinine ratio, urineon 01-03-2022 Creatinine, Ur 84.8 mg/dL 39 - 259 mg/dL [facility] [employer] Protein (U) [Mass/Vol] 16 mg/dL [facility] Comment on above: No normal range esta blished. Urine Total Protein Creatinine Ratio 0.19 0 - 0.2 [facility] [employer] Protein,Tot,[place] Uron 2021 Creatinine [Mass/Vol] 84.8 mg/dL Normal 39.0-259.0 [facility] Comment on above: Performed By: #### U RNA, URTPRT, UMICAO, UEOS, UA #### [facility] [address] [place] [address] Public Policy Manager: Ronn Arias MD Tot Prot. Conc. 16 mg/dL Normal [facility] Comment on above: Result Comment: No n ormal range established. Performed By: #### U RNA, URTPRT, UMICAO, UEOS, UA #### [facility] [address] [place] [address] Public Policy Manager: Ronn Arias MD TP/Cre Ratio 0.19 Normal 0.00-0.20 [facility] Comment on above: Performed By: #### U RNA, URTPRT, UMICAO, UEOS, UA #### [facility] [employer] [address] [place] [address] Public Policy Manager: Ronn Arias MD SODIUM, URINE, RANDOMon 12-21 Sodium (U) [Moles/Vol] 83 mmol/L [facility] Comment on above: No normal range esta [...] two black choleliths, each measuring 0.5 cm. [employer] Tender sections 1c to include cystic duct margin (inked blue), fundus, body and neck. tm Microscopic Description Microscopic examination performed. SURGICAL PATHOLOGY CONSULTATION Patient Name: YOLI ANTUNEZ [facility] Rec: [id number] Path Number: [id number] [facility] [facility] [facility] ANATOMIC PATHOLOGY [address] [place] [phone] [facility] Sodium, Random Uron 01-04-20 22 Sodium (U) [Moles/Vol] 83 mmol/L Normal [facility] Comment on above: Result Comment: No n ormal range established. Performed By: #### U RNA, URTPRT, UMICAO, UEOS, UA #### [facility] [address] [place] [phone] Public Policy Manager: Ronn Arias MD Urinalysison 01-03-2022 Bilirubin Urine Negative NEGATIVE [facility] Color, UA Yellow Yellow [facility] Glucose, Ur Negative NEGATIVE [facility] Interpretation and review of laboratory results Abnormal [facility] Ketones Ql (U) Negative NEGATIVE [facility] Leukocyte esterase Test strip Ql (U) Negative NEGATIVE [facility] Nitrite, Urine Negative NEGATIVE [facility] pH, UA 5.5 5 - 8 [facility] Protein, UA TRACE Abnormal NEGATIVE [facility] Specific Cisco, UA 1.014 1.005 - 1.03 [facility] Turbidity UA Clear Clear [facility] Urine Hgb TRACE Abnormal NEGATIVE [facility] Urobilinogen, Urine Normal Normal [facility] Urinalysis, Routineon 2021 Bilirubin, SemiQt,Ur Negative Normal NEG [facility] Comment on above: Performed By: #### U RNA, URTPRT, UMICAO, UEOS, UA #### [facility] [address] [place] [phone] Public Policy Manager: Ronn Arias MD Blood, Urine TRACE Abnormal NEG [facility] Comment on above: Performed By: #### U RNA, URTPRT, UMICAO, UEOS, UA #### [facility] [address] [place] [phone] Public Policy Manager: Ronn Arias MD Clarity (U) Clear Normal CLEAR [facility] Comment on above: Performed By: #### U RNA, URTPRT, UMICAO, UEOS, UA #### [facility] [address] [place] [phone] Public Policy Manager: Ronn Arias MD Color (U) Yellow Normal YEL [facility] Comment on above: Performed By: #### U RNA, URTPRT, UMICAO, UEOS, UA #### [facility] [address] [place] [phone] Public Policy Manager: Ronn Arias MD Glucose Ql (U) Negative Normal NEG [facility] Comment on above: Performed By: #### U RNA, URTPRT, UMICAO, UEOS, UA #### [facility] [address] [place] [phone] Public Policy Manager: Ronn Arias MD Ketones Ql (U) Negative Normal NEG [facility] Comment on above: Performed By: #### U RNA, URTPRT, UMICAO, UEOS, UA #### [facility] [address] [place] [address] Public Policy Manager: Ronn Arias MD Leukocyte esterase Test strip Ql (U) Negative Normal NEG [facility] Comment on above: Performed By: #### U RNA, URTPRT, UMICAO, UEOS, UA #### [facility] [address] [place] [phone] Public Policy Manager: Ronn Arias MD Nitrite,Ur Negative Normal NEG [facility] Comment on above: Performed By: #### U RNA, URTPRT, UMICAO, UEOS, UA #### [address] [address] Public Policy Manager: Ronn Arias MD PH,Ur 5.5 Normal 5.0-8.0 [facility] Comment on above: Performed By: #### U RNA, URTPRT, UMICAO, UEOS, UA #### [address] [address] Public Policy Manager: Ronn Arias MD Protein Ql (U) TRACE Abnormal NEG [facility] Comment on above: Performed By: #### U RNA, URTPRT, UMICAO, UEOS, UA #### [address] [address] Public Policy Manager: Ronn Arias MD Spec. Cisco,Ur 1.014 Normal 1.005-1.03 0 [facility] Comment on above: Performed By: #### U RNA, URTPRT, UMICAO, UEOS, UA #### [address] [address] Public Policy Manager: Ronn Arias MD Urobilinogen,Ur Normal Normal NORM [facility] Comment on above: Performed By: #### U RNA, URTPRT, UMICAO, UEOS, UA #### [address] [address] Public Policy Manager: Ronn Arias MD Urinalysis,Microon 2 Casts 2 TO 5 HYALINE Normal 0-8 [facility] Comment on above: Result Comment: Refe rence range defined for non-centrifuged specimen. Performed By: #### U RNA, URTPRT, UMICAO, UEOS, UA #### [address] [address] Public Policy Manager: Ronn Arias MD Epithelial cells LM Ql (Urine sed) None Normal 0-5 [facility] Comment on above: Performed By: #### U RNA, URTPRT, UMICAO, UEOS, UA #### [facility] [address] [place] [address] Public Policy Manager: Ronn Arias MD Urine RBC's 2 TO 5 Normal 0-4 [facility] Comment on above: Result Comment: Refe rence range defined for non-centrifuged specimen. Performed By: #### U RNA, URTPRT, UMICAO, UEOS, UA #### [facility] [employer] [address] [place] [phone] Public Policy Manager: Ronn Arias MD Urine WBC's 2 TO 5 Normal 0-5 [facility] Comment on above: Performed By: #### U RNA, URTPRT, UMICAO, UEOS, UA #### [facility] [address] [place] [phone] Public Policy Manager: Ronn Arias MD Basic Metab w/rfx MGon 01-02 (cont.) Normal [facility] Comment on above: Result Comment: Aver age GFR for 60-69 years old: 85 mL/min/1.73sq m Chronic Kidney Disease: <60 mL/min/1.73sq m Kidney failure: <15 mL/min/1.73sq m eGFR calculated using average adult body mass. Additional eGFR calculator available at: http://www.Munch a Bunch.Schoolfy/multiple_crcl_2012.htm Performed By: #### L ACDS #### [address] [address] Public Policy Manager: Ronn Arias MD Anion gap [Moles/Vol] 14 mmol/L Normal 9-17 [facility] Comment on above: Performed By: #### L ACDS #### [address] [address] Public Policy Manager: Ronn Arias MD Calcium [Mass/Vol] 7.2 mg/dL Low 8.6-10.4 [facility] Comment on above: Performed By: #### L ACDS #### [address] [address] Public Policy Manager: Ronn Arias MD Chloride [Moles/Vol] 108 mmol/L High 98-107 [facility] Comment on above: Performed By: #### L ACDS #### [address] [address] Public Policy Manager: Ronn Arias MD CO2 [Moles/Vol] 20 mmol/L Normal 20-31 [facility] Comment on above: Performed By: #### L ACDS #### [address] [address] Public Policy Manager: Ronn Arias MD Creatinine [Mass/Vol] 3.51 mg/dL High 0.70-1.20 [facility] Comment on above: Performed By: #### L ACDS #### [address] [address] Public Policy Manager: Ronn Arias MD GFR, Amer 21 mL/min Low >60 [facility] Comment on above: Performed By: #### L ACDS #### [address] [address] Public Policy Manager: Ronn Arias MD GFR,non Amer 17 mL/min Low >60 [facility] Comment on above: Performed By: #### L ACDS #### [address] [address] Public Policy Manager: Ronn Arias MD Glucose [Mass/Vol] 122 mg/dL High 70-99 [facility] Comment on above: Performed By: #### L ACDS #### [address] [address] Public Policy Manager: Ronn Arias MD Potassium [Moles/Vol] 5.0 mmol/L Normal 3.7-5.3 [facility] Comment on above: Performed By: #### L ACDS #### [address] [address] Public Policy Manager: Ronn Arias MD Sodium [Moles/Vol] 142 mmol/L Normal 135-144 [facility] Comment on above: Performed By: #### L ACDS #### [address] [address] Public Policy Manager: Ronn Arias MD Urea nitrogen [Mass/Vol] 55 mg/dL High 8-23 [facility] Comment on above: Performed By: #### L ACDS #### [address] [address] Public Policy Manager: Ronn Arias MD (cont.) [facility] Comment on above: Result Comment: Aver age GFR for 60-69 years old: 85 mL/min/1.73sq m Chronic Kidney Disease: <60 mL/min/1.73sq m Kidney failure: <15 mL/min/1.73sq m eGFR calculated using average adult body mass. Additional eGFR calculator available at: http://www.Munch a Bunch.Schoolfy/multiple_crcl_2011.htm Performed By: #### L IVP, BMPX, LIP, CDP #### [facility] [employer] [address] [place] [address] Public Policy Manager: Ronn Arias MD Anion gap [Moles/Vol] 14 mmol/L Normal 9-17 [facility] Comment on above: Performed By: #### L IVP, BMPX, LIP, CDP #### [facility] [employer] [address] [place] [address] Public Policy Manager: Ronn Arias MD Calcium [Mass/Vol] 7.2 mg/dL Low 8.6-10.4 [facility] Comment on above: Performed By: #### L IVP, BMPX, LIP, CDP #### [facility] [address] [place] [address] Public Policy Manager: Ronn Arias MD Chloride [Moles/Vol] 109 mmol/L High 98-107 [facility] Comment on above: Performed By: #### L IVP, BMPX, LIP, CDP #### [facility] [address] [place] [address] Public Policy Manager: Ronn Arias MD CO2 [Moles/Vol] 18 mmol/L Low 20-31 [facility] Comment on above: Performed By: #### L IVP, BMPX, LIP, CDP #### [facility] [employer] [address] [place] [phone] Public Policy Manager: Ronn Arias MD Creatinine [Mass/Vol] 4.02 mg/dL High 0.70-1.20 [facility] Comment on above: Performed By: #### L IVP, BMPX, LIP, CDP #### [facility] [employer] [address] [place] [address] Public Policy Manager: Ronn Arias MD GFR, Amer 18 mL/min Low >60 [facility] Comment on above: Performed By: #### L IVP, BMPX, LIP, CDP #### [facility] [address] [place] [phone] Public Policy Manager: Ronn Arias MD GFR,non Amer 15 mL/min Low >60 [facility] Comment on above: Performed By: #### L IVP, BMPX, LIP, CDP #### [facility] [address] [place] [address] Public Policy Manager: Ronn Arias MD Glucose [Mass/Vol] 106 mg/dL High 70-99 [facility] Comment on above: Performed By: #### L IVP, BMPX, LIP, CDP #### [facility] [address], [place] [phone] Public Policy Manager: Ronn Arias MD Potassium [Moles/Vol] 4.6 mmol/L Normal 3.7-5.3 [facility] Comment on above: Performed By: #### L IVP, BMPX, LIP, CDP #### [facility] [address], [place] [phone] Public Policy Manager: Ronn Arias MD Sodium [Moles/Vol] 141 mmol/L Normal 135-144 [facility] Comment on above: Performed By: #### L IVP, BMPX, LIP, CDP #### [facility] [address], [place] [phone] Public Policy Manager: Ronn Arias MD Urea nitrogen [Mass/Vol] 63 mg/dL High 8-23 [facility] Comment on above: Performed By: #### L IVP, BMPX, LIP, CDP #### [facility] [address], [place] [phone] Public Policy Manager: Ronn Arias MD Basic Metabolic Panel w/ Ref luz to MGon 01-02-2022 Anion gap [Moles/Vol] 14 mmol/L 9 - 17 mmol/L [facility] Calcium [Mass/Vol] 7.2 mg/dL Low 8.6 - 10. 4 mg/dL [facility] Chloride [Moles/Vol] 108 mmol/L High 98 - 10 7 mmol/L [facility] CO2 [Moles/Vol] 20 mmol/L 20 - 31 mmol/L [facility] Creatinine [Mass/Vol] 3.51 mg/dL High 0.7 - 1.2 mg/dL [facility] GFR 21 mL/min Low 60 - PI NF mL/min [facility] GFR Non- 17 mL/min Low 60 - PINF mL/min [facility] GFR/1.73 sq M.predicted MDRD (S/P/Bld) [Vol rate/Area] [facility] Comment on above: Average GFR for 60-6 9 years old: 85 mL/min/1.73sq m Chronic Kidney Disease: <60 mL/min/1.73sq m Kidney failure: <15 mL/min/1.73sq m eGFR calculated using average adult body mass. Additional eGFR calculator available at: http://www.Appian/multiple_crcl_2012.htm Glucose [Mass/Vol] 122 mg/dL High 70 - 99 mg/dL [facility] [employer] Interpretation and review of laboratory results Abnormal [facility] [employer] Potassium [Moles/Vol] 5.0 mmol/L 3.7 - 5.3 mmol/L [facility] [employer] Sodium [Moles/Vol] 142 mmol/L 135 - 144 mmol/L [facility] [employer] Urea nitrogen (BldV) [Mass/Vol] 55 mg/dL High 8 - 23 mg/dL [facility]OtherInboxCOLUM[facility] SYSTEMOtherInboxFAYET[facility] Anion gap [Moles/Vol] 14 mmol/L 9 - 17 mmol/L [facility] [employer] Calcium [Mass/Vol] 7.2 mg/dL Low 8.6 - 10. 4 mg/dL [facility] Chloride [Moles/Vol] 109 mmol/L High 98 - 10 7 mmol/L [facility] [employer] CO2 [Moles/Vol] 18 mmol/L Low 20 - 31 mmol/L [facility] [employer] Creatinine [Mass/Vol] 4.02 mg/dL High 0.7 - 1.2 mg/dL [facility] [employer] GFR 18 mL/min Low 60 - PI NF mL/min [facility] [facility] GFR Non- 15 mL/min Low 60 - PINF mL/min [facility] GFR/1.73 sq M.predicted MDRD (S/P/Bld) [Vol rate/Area] [facility] Comment on above: Average GFR for 60-6 9 years old: 85 mL/min/1.73sq m Chronic Kidney Disease: <60 mL/min/1.73sq m Kidney failure: <15 mL/min/1.73sq m eGFR calculated using average adult body mass. Additional eGFR calculator available at: http://www.Munch a Bunch.Schoolfy/multiple_crcl_2012.htm Glucose [Mass/Vol] 106 mg/dL High 70 - 99 mg/dL [facility] Potassium [Moles/Vol] 4.6 mmol/L 3.7 - 5.3 mmol/L [facility] Sodium [Moles/Vol] 141 mmol/L 135 - 144 mmol/L [facility] Urea nitrogen (BldV) [Mass/Vol] 63 mg/dL High 8 - 23 mg/dL [facility] CBC with Auto Differentialon 01-02-2022 Absolute Eos # 0.12 [facility] Absolute Immature Granulocyte 0.00 [facility] Absolute Lymph # 0.37 Low [facility] Absolute [place] # 0.49 [facility] Basophils (Bld) [#/Vol] 0.00 10*3/uL [facility] Basophils/100 WBC (Bld) 0 % 0 - 2 % [facility] Eosinophils/100 WBC (Bld) 1 % 1 - 4 % [facility] Hematocrit (Bld) [Volume fraction] 30.4 % Low 40.7 - 50.3 % [facility] Hemoglobin (Bld) [Mass/Vol] 10.2 g/dL Low 13 - 17 g/dL [facility] Immature granulocytes/100 WBC (Bld) 0 % 0 [facility] Interpretation and review of laboratory results Abnormal [facility] Lymphocytes/100 WBC (Bld) 3 % Low 24 - 44 % [facility] MCH (RBC) [Entitic mass] 28.0 pg 25.2 - 33.5 pg [facility] MCHC (RBC) [Mass/Vol] 33.6 g/dL 28.4 - 34.8 g/dL [facility] MCV (RBC) [Entitic vol] 83.5 fL 82.6 - 102.9 fL [facility] Monocytes/100 WBC (Bld) 4 % 1 - 7 % [facility] Morphology Gordon (Bld) [Interp] Normal [facility] NRBC Automated 0.0 0.0 per 100 WBC [facility] Platelet distribution width (Bld) [Ratio] 14.4 % 11.8 - 14.4 % [facility] Platelet mean volume (Bld) [Entitic vol] 10.3 fL 8.1 - 13.5 fL [facility] Platelets (Bld) [#/Vol] 150 10*3/uL [facility] RBC (Bld) [#/Vol] 3.64 10*6/uL Low 4.21 - 5.77 m/uL [facility] Segmented neutrophils/100 WBC (Bld) 92 % High 36 - 66 % [facility] Segs Absolute 11.22 High [facility] WBC (Bld) [#/Vol] 12.2 10*3/uL High [facility] CBC with Diffon 01-02-2022 Abs. Basophil 0.00 k/uL Normal 0.0-0.2 [facility] Comment on above: Performed By: #### L ACDS #### [facility] [address] [place] [address] Public Policy Manager: Ronn Arias MD Abs.Imm.Granulocyte 0.00 k/uL Normal 0.00-0.30 [facility] Comment on above: Performed By: #### L ACDS #### [facility] [address] [place] [phone] Public Policy Manager: Ronn Arias MD Abs.Neutrophil (Seg) 11.22 k/uL High 1.8-7.7 [facility] Comment on above: Performed By: #### L ACDS #### [facility] [employer] [address] [place] [address] Public Policy Manager: Ronn Arias MD Basophils/100 WBC (Bld) 0 % Normal 0-2 [facility] Comment on above: Performed By: #### L ACDS #### [facility] [employer] [address] [place] [address] [phone] Public Policy Manager: Ronn Arias MD Eosinophils (Bld) [#/Vol] 0.12 10*3/uL Normal 0.0-0.4 [facility] Comment on above: Performed By: #### L ACDS #### [address] [address] Public Policy Manager: Ronn Arias MD Eosinophils/100 WBC (Bld) 1 % Normal 1-4 [facility] Comment on above: Performed By: #### L ACDS #### [address] [address] Public Policy Manager: Ronn Arias MD Immature granulocytes/100 WBC (Bld) 0 % Normal 0 [facility] Comment on above: Performed By: #### L ACDS #### [address] [address] Public Policy Manager: Ronn Arias MD Lymphocytes (Bld) [#/Vol] 0.37 10*3/uL Low 1.0-4.8 [facility] Comment on above: Performed By: #### L ACDS #### [address] [address] Public Policy Manager: Ronn Arias MD Lymphocytes/100 WBC (Bld) 3 % Low 24-44 [facility] Comment on above: Performed By: #### L ACDS #### [address] [address] Public Policy Manager: Ronn Arias MD Monocytes (Bld) [#/Vol] 0.49 10*3/uL Normal 0.1-0.8 [facility] Comment on above: Performed By: #### L ACDS #### [address] [address] Public Policy Manager: Ronn Arias MD Monocytes/100 WBC (Bld) 4 % Normal 1-7 [facility] Comment on above: Performed By: #### L ACDS #### [address] [address] Public Policy Manager: Ronn Arias MD Morphology Gordon (Bld) [Interp] Normal Normal [facility] Comment on above: Performed By: #### L ACDS #### [address] [address] Public Policy Manager: Ronn Arias MD Neutrophil (Seg) 92 % High 36-66 [facility] Comment on above: Performed By: #### L ACDS #### [address] [address] Public Policy Manager: Ronn Arias MD Erythrocyte distribution width (RBC) [Ratio] 14.4 % Normal 11.8-14.4 [facility] Comment on above: Performed By: #### L ACDS #### [address] [address] Public Policy Manager: Ronn Arias MD Hematocrit (Bld) [Volume fraction] 30.4 % Low 40.7-50.3 [facility] Comment on above: Performed By: #### L ACDS #### [address] [address] Public Policy Manager: Ronn Arias MD Hemoglobin (Bld) [Mass/Vol] 10.2 g/dL Low 13.0-17.0 [facility] Comment on above: Performed By: #### L ACDS #### [address] [address] Public Policy Manager: Ronn Arias MD MCH (RBC) [Entitic mass] 28.0 pg Normal 25.2-33.5 [facility] Comment on above: Performed By: #### L ACDS #### [address] [address] Public Policy Manager: Ronn Arias MD MCHC (RBC) [Mass/Vol] 33.6 g/dL Normal 28.4-34.8 [facility] Comment on above: Performed By: #### L ACDS #### [address] [address] Public Policy Manager: Ronn Arias MD MCV (RBC) [Entitic vol] 83.5 fL Normal 82.6-102.9 [facility] Comment on above: Performed By: #### L ACDS #### [address] [address] Public Policy Manager: Ronn Arias MD NRBC Automated 0.0 per 100 WBC Normal 0.0 [facility] Comment on above: Performed By: #### L ACDS #### [address] [address] Public Policy Manager: Ronn Arias MD Platelet mean volume (Bld) [Entitic vol] 10.3 fL Normal 8.1-13.5 [facility] Comment on above: Performed By: #### L ACDS #### [address] [address] Public Policy Manager: Ronn Arias MD Platelets (Bld) [#/Vol] 150 10*3/uL Normal 138-453 [facility] Comment on above: Performed By: #### L ACDS #### [address] [address] Public Policy Manager: Ronn Arias MD RBC (Bld) [#/Vol] 3.64 10*6/uL Low 4.21-5.77 [facility] Comment on above: Performed By: #### L ACDS #### [address] [address] Public Policy Manager: Ronn Arias MD WBC (Bld) [#/Vol] 12.2 10*3/uL High 3.5-11.3 [facility] Comment on above: Performed By: #### L ACDS #### [facility] [address] [place] [address] Public Policy Manager: Ronn Arias MD Cult,Urineon 01-02-2022 Cult,Urine Specimen Description .URINE Culture NO GROWTH Report Status FINAL 01/02/2022 Normal [facility] Comment on above: Performed By: #### U RNA, URTPRT, UMICAO, UEOS, UA #### [facility] [address] [place] [address] Public Policy Manager: Ronn Arias MD Culture, Urineon 01-02-2022 Bacteria identified Cx Nom (U) NO GROWTH [facility] Specimen Description .URINE [facility] Hepatic Function Panelon Albumin [Mass/Vol] 2.9 g/dL Low 3.5 - 5.2 g/dL [facility] Albumin/Globulin [Mass ratio] 0.9 {ratio} Low 1 - 2.5 [facility] ALP (Bld) [Catalytic activity/Vol] 96 U/L 40 - 129 U/L [facility] ALT [Catalytic activity/Vol] 123 U/L High 5 - 41 U/L [facility] AST [Catalytic activity/Vol] 50 U/L High NINF - 40 U/L [facility] Bilirubin [Mass/Vol] 1.8 mg/dL High 0.3 - 1 .2 mg/dL [facility] Bilirubin, Indirect 0.7 mg/dL 0 - 1 mg/dL [facility] Bilirubin.indirect [Mass/Vol] 1.1 mg/dL High NINF - 0.31 mg/dL [facility] [employer] Free PSA/Total PSA [Mass fraction] 6.1 g/dL Low 6.4 - 8.3 g/dL [facility] [employer] Lactate, Sepsison 01-02-2022 Lactic Acid, Sepsis, Whole Blood 1.2 mmol/L 0.5 - 1.9 mmol/L [facility] Lactic Acid,Sep Wbld 1.3 mmol/L Normal 0.5-1.9 [facility] Comment on above: Performed By: #### U RNA, URTPRT, UMICAO, UEOS, UA #### [facility] [address] [place] [phone] Public Policy Manager: Ronn Arias MD Lactic Acid, Sepsis, Whole Blood 1.3 mmol/L 0.5 - 1.9 mmol/L [facility] Lactic Acid,Sep Wbld 1.0 mmol/L Normal 0.5-1.9 [facility] Comment on above: Performed By: #### U RNA, URTPRT, UMICAO, UEOS, UA #### [facility] [address] [place] [phone] Public Policy Manager: Ronn Arias MD Lactic Acid, Sepsis, Whole Blood 1.0 mmol/L 0.5 - 1.9 mmol/L [facility] Lactic Acid,Sep Wbld 0.9 mmol/L Normal 0.5-1.9 [facility] Comment on above: Performed By: #### U RNA, URTPRT, UMICAO, UEOS, UA #### [facility] [address] [place] [address] Public Policy Manager: Ronn Arias MD Lactic Acid, Sepsis, Whole Blood 0.9 mmol/L 0.5 - 1.9 mmol/L [facility] Lipaseon 01-02-2022 Lipase [Catalytic activity/Vol] 1280 U/L High 13-60 [facility] Comment on above: Performed By: #### L IVP, BMPX, LIP, CDP #### [facility] [employer] [address] [place] [phone] Public Policy Manager: Ronn Arias MD Interpretation and review of laboratory results Abnormal [facility] Lipase [Catalytic activity/Vol] 1280 U/L High 13 - 60 U/L [facility] Liver Profileon 01-02-2022 Albumin [Mass/Vol] 2.9 g/dL Low 3.5-5.2 [facility] Comment on above: Performed By: #### L IVP, BMPX, LIP, CDP #### [facility] [employer] [address] [place] [address] Public Policy Manager: Ronn Arias MD Albumin/Glob Ratio 0.9 Low 1.0-2.5 [facility] Comment on above: Performed By: #### L IVP, BMPX, LIP, CDP #### [facility] [address] [place] [address] Public Policy Manager: Ronn Arias MD Alkaline Phos 96 U/L Normal 40-129 [facility] Comment on above: Performed By: #### L IVP, BMPX, LIP, CDP #### [facility] [address] [place] [address] Public Policy Manager: Ronn Arias MD ALT [Catalytic activity/Vol] 123 U/L High 5-41 [facility] Comment on above: Performed By: #### L IVP, BMPX, LIP, CDP #### [employer] [address] [place] [phone] Public Policy Manager: Ronn Arias MD AST [Catalytic activity/Vol] 50 U/L High <40 [facility] Comment on above: Performed By: #### L IVP, BMPX, LIP, CDP #### [facility] [address] [place] [address] Public Policy Manager: Ronn Arias MD Bilirubin [Mass/Vol] 1.8 mg/dL High 0.3-1.2 [facility] Comment on above: Performed By: #### L IVP, BMPX, LIP, CDP #### [facility] [address] [place] [address] Public Policy Manager: Ronn Arias MD Bilirubin, Indirect 0.7 mg/dL Normal 0.00-1.00 [facility] Comment on above: Performed By: #### L IVP, BMPX, LIP, CDP #### [facility] [address] [place] [address] Public Policy Manager: Ronn Arias MD Bilirubin.indirect [Mass/Vol] 1.1 mg/dL High <0.31 [facility] Comment on above: Performed By: #### L IVP, BMPX, LIP, CDP #### [facility] [address] [place] [address] Public Policy Manager: Ronn Arias MD Protein [Mass/Vol] 6.1 g/dL Low 6.4-8.3 [facility] Comment on above: Performed By: #### L IVP, BMPX, LIP, CDP #### [facility] [address] [place] [phone] Public Policy Manager: Ronn Arias MD No Panel Informationon 01-02 Interpretation and review of laboratory results Abnormal [facility] Protein,Tot,[place] [employer] 2021 Tot Prot. Conc. 59 mg/dL Normal [facility] Comment on above: Result Comment: No n ormal range established. Performed By: #### U RNA, URTPRT, UMICAO, UEOS, UA #### [facility] [address] [place] [phone] Public Policy Manager: Ronn Arias MD Surgical Pathologyon 022 Surgical [...] two black choleliths, each measuring 0.5 cm. Bag Making Machine Tender sections 1c to include cystic duct margin (inked blue), fundus, body and neck. tm Microscopic Description Microscopic examination performed. SURGICAL PATHOLOGY CONSULTATION Patient Name: YOLI ANTUNEZ [facility] Rec: [id number] Path Number: [id number] [facility] ANATOMIC PATHOLOGY [address] [place] [address]. [place], [place] [address] Normal [facility] Comment on above: Performed By: #### L ACDS #### [facility] [address] [place] [address] [phone] Public Policy Manager: Ronn Arias MD US RENAL LIMITEDon US [...] Naif Bean MD 01/02/22 Final result Normal [facility] Unremarkable renal ultrasound. No hydronephrosis. PN RIS CONSOLIDATED EXAMINATION: ULTRASOUND OF THE KIDNEYS [...] Gross preservation of the bilateral corticomedullary differentiation. [facility] CONSOLIDATED Vikas, Naif Lovell MD - 01/02/2022 [...] differentiation. IMPRESSION: Unremarkable renal ultrasound. No hydronephrosis. [employer] Phone: Radiology Study observation (narrative) [employer] Phone: RENAL LIMITEDOrdered By: Naif Bean on 01-02-2022 [employer] Phone: Basic Metabolic Panelon 12-21 Anion gap [Moles/Vol] 14 mmol/L 9 - 17 mmol/L [facility] Calcium [Mass/Vol] 6.4 mg/dL Low 8.6 - 10. 4 mg/dL [facility] Chloride [Moles/Vol] 106 mmol/L 98 - 10 7 mmol/L [facility] CO2 [Moles/Vol] 19 mmol/L Low 20 - 31 mmol/L [facility] Creatinine [Mass/Vol] 3.73 mg/dL High 0.7 - 1.2 mg/dL [facility] Comment on above: ICTERIC SPECIMEN GFR 20 mL/min Low 60 - PI NF mL/min [facility] GFR Non- 16 mL/min Low 60 - PINF mL/min [facility] GFR/1.73 sq M.predicted MDRD (S/P/Bld) [Vol rate/Area] [facility] Comment on above: Average GFR for 60-6 9 years old: 85 mL/min/1.73sq m Chronic Kidney Disease: <60 mL/min/1.73sq m Kidney failure: <15 mL/min/1.73sq m eGFR calculated using average adult body mass. Additional eGFR calculator available at: http://www.Appian/123people_crcl_2012.htm Glucose [Mass/Vol] 114 mg/dL High 70 - 99 mg/dL [facility] Interpretation and review of laboratory results Abnormal [facility] Potassium [Moles/Vol] 4.4 mmol/L 3.7 - 5.3 mmol/L [facility] Sodium [Moles/Vol] 139 mmol/L 135 - 144 mmol/L [facility] Urea nitrogen (BldV) [Mass/Vol] 58 mg/dL High 8 - 23 mg/dL [facility] Basic Metabolic Profon 01-01 (cont.) Normal [facility] Comment on above: Result Comment: Aver age GFR for 60-69 years old: 85 mL/min/1.73sq m Chronic Kidney Disease: <60 mL/min/1.73sq m Kidney failure: <15 mL/min/1.73sq m eGFR calculated using average adult body mass. Additional eGFR calculator available at: http://www.Appian/multiple_crcl_2012.htm Performed By: #### U RNA, URTPRT, UMCATYO, UEOS, UA #### [address] [address] Public Policy Manager: Ronn Arias MD Anion gap [Moles/Vol] 14 mmol/L Normal 9-17 [facility] Comment on above: Performed By: #### U RNA, URTPRT, UMICAO, UEOS, UA #### [address] [address] Public Policy Manager: Ronn Arias MD Calcium [Mass/Vol] 6.4 mg/dL Low 8.6-10.4 [facility] Comment on above: Performed By: #### U RNA, URTPRT, UMICAO, UEOS, UA #### [address] [address] Public Policy Manager: Ronn Arias MD Chloride [Moles/Vol] 106 mmol/L Normal 98-107 [facility] Comment on above: Performed By: #### U RNA, URTPRT, UMICAO, UEOS, UA #### [facility] [employer] [address] [place] [address] Public Policy Manager: Ronn Arias MD CO2 [Moles/Vol] 19 mmol/L Low 20-31 [facility] Comment on above: Performed By: #### U RNA, URTPRT, UMICAO, UEOS, UA #### [address] [address] Public Policy Manager: Ronn Arias MD Creatinine [Mass/Vol] 3.73 mg/dL High 0.70-1.20 [facility] Comment on above: Result Comment: ICTE JAYDON SPECIMEN Performed By: #### U RNA, URTPRT, UMICAO, UEOS, UA #### [facility] [employer] [address] [place] [phone] Public Policy Manager: Ronn Arias MD GFR, Amer 20 mL/min Low >60 [facility] Comment on above: Performed By: #### U RNA, URTPRT, UMICAO, UEOS, UA #### [facility] [address] [place] [phone] Public Policy Manager: Ronn Arias MD GFR,non Amer 16 mL/min Low >60 [facility] Comment on above: Performed By: #### U RNA, URTPRT, UMICAO, UEOS, UA #### [facility] [address] [place] [address] Public Policy Manager: Ronn Arias MD Glucose [Mass/Vol] 114 mg/dL High 70-99 [facility] Comment on above: Performed By: #### U RNA, URTPRT, UMICAO, UEOS, UA #### [facility] [employer] [address] [place] [phone] Public Policy Manager: Ronn Arias MD Potassium [Moles/Vol] 4.4 mmol/L Normal 3.7-5.3 [facility] Comment on above: Performed By: #### U RNA, URTPRT, UMICAO, UEOS, UA #### [facility] [employer] [address] [place] [address] [phone] Public Policy Manager: Ronn Arias MD Sodium [Moles/Vol] 139 mmol/L Normal 135-144 [facility] Comment on above: Performed By: #### U RNA, URTPRT, UMICAO, UEOS, UA #### [facility] [employer] [address] [place] [address] [phone] Public Policy Manager: Ronn Arias MD Urea nitrogen [Mass/Vol] 58 mg/dL High 8-23 [facility] Comment on above: Performed By: #### U RNA, URTPRT, UMICAO, UEOS, UA #### [facility] [employer] [address] [place] [address] [phone] Public Policy Manager: Ronn Arias MD CBCon 01-01-2022 Erythrocyte distribution width (RBC) [Ratio] 14.5 % High 11.8-14.4 [facility] Comment on above: Performed By: #### U RNA, URTPRT, UMICAO, UEOS, UA #### [facility] [employer] [address] [place] [address] [phone] Public Policy Manager: Ronn Arias MD Hematocrit (Bld) [Volume fraction] 30.0 % Low 40.7-50.3 [facility] Comment on above: Performed By: #### U RNA, URTPRT, UMICAO, UEOS, UA #### [facility] [employer] [address] [place] [address] [phone] Public Policy Manager: Ronn Arias MD Hemoglobin (Bld) [Mass/Vol] 10.0 g/dL Low 13.0-17.0 [facility] Comment on above: Performed By: #### U RNA, URTPRT, UMICAO, UEOS, UA #### [facility] [employer] [address] [place] [address] [phone] Public Policy Manager: Ronn Arias MD MCH (RBC) [Entitic mass] 28.2 pg Normal 25.2-33.5 [facility] Comment on above: Performed By: #### U RNA, URTPRT, UMICAO, UEOS, UA #### [facility] [employer] [address] [place] [address] [phone] Public Policy Manager: Ronn Arias MD MCHC (RBC) [Mass/Vol] 33.3 g/dL Normal 28.4-34.8 [facility] Comment on above: Performed By: #### U RNA, URTPRT, UMICAO, UEOS, UA #### [facility] [employer] [address] [place] [address] [phone] Public Policy Manager: Ronn Arias MD MCV (RBC) [Entitic vol] 84.7 fL Normal 82.6-102.9 [facility] Comment on above: Performed By: #### U RNA, URTPRT, UMICAO, UEOS, UA #### [address] [address] Public Policy Manager: Ronn rAias MD NRBC Automated 0.0 per 100 WBC Normal 0.0 [facility] Comment on above: Performed By: #### U RNA, URTPRT, UMICAO, UEOS, UA #### [address] [address] Public Policy Manager: Ronn Arias MD Platelet mean volume (Bld) [Entitic vol] 11.0 fL Normal 8.1-13.5 [facility] Comment on above: Performed By: #### U RNA, URTPRT, UMICAO, UEOS, UA #### [address] [address] Public Policy Manager: Ronn Arias MD Platelets (Bld) [#/Vol] 157 10*3/uL Normal 138-453 [facility] Comment on above: Performed By: #### U RNA, URTPRT, UMICAO, UEOS, UA #### [address] [address] Public Policy Manager: Ronn Arias MD RBC (Bld) [#/Vol] 3.54 10*6/uL Low 4.21-5.77 [facility] Comment on above: Performed By: #### U RNA, URTPRT, UMICAO, UEOS, UA #### [facility] [employer] [address] [place] [address] [phone] Public Policy Manager: Ronn Arias MD WBC (Bld) [#/Vol] 16.8 10*3/uL High 3.5-11.3 [facility] Comment on above: Performed By: #### U RNA, URTPRT, UMICAO, UEOS, UA #### [facility] [address] [place] [address], [place] [phone] Public Policy Manager: Ronn Arias MD Hematocrit (Bld) [Volume fraction] 30.0 % Low 40.7 - 50.3 % [facility] Hemoglobin (Bld) [Mass/Vol] 10.0 g/dL Low 13 - 17 g/dL [facility] MCH (RBC) [Entitic mass] 28.2 pg 25.2 - 33.5 pg [facility] MCHC (RBC) [Mass/Vol] 33.3 g/dL 28.4 - 34.8 g/dL [facility] MCV (RBC) [Entitic vol] 84.7 fL 82.6 - 102.9 fL [facility] NRBC Automated 0.0 0.0 per 100 WBC [facility] Platelet distribution width (Bld) [Ratio] 14.5 % High 11.8 - 14.4 % [facility] Platelet mean volume (Bld) [Entitic vol] 11.0 fL 8.1 - 13.5 fL [facility] Platelets (Bld) [#/Vol] 157 10*3/uL [facility] RBC (Bld) [#/Vol] 3.54 10*6/uL Low 4.21 - 5.77 m/uL [facility] WBC (Bld) [#/Vol] 16.8 10*3/uL High [facility] Calcium, Ionicon 01-01-2022 Calcium [Moles/Vol] 0.95 mmol/L Low 1.13-1.33 [facility] Comment on above: Performed By: #### U RNA, URTPRT, UMICAO, UEOS, UA #### [facility] [address] [place], [place] [phone] Public Policy Manager: Ronn Arias MD Calcium, Ionizedon 2 Calcium, Ionized 0.95 mmol/L Low 1.13 - 1.33 mmol/L [facility] Interpretation and review of laboratory results Abnormal [facility] Comp Metabolic Pr/rfx MGon 0 01-01-2022 Creatinine [Mass/Vol] 3.74 mg/dL High 0.70-1.20 [facility] Comment on above: Result Comment: ICTE JAYDON SPECIMEN Performed By: #### U RNA, URTPRT, UMICAO, UEOS, UA #### [facility] [address] [place] [address] Public Policy Manager: Ronn Arias MD GFR, Amer 20 mL/min Low >60 [facility] Comment on above: Performed By: #### U RNA, URTPRT, UMICAO, UEOS, UA #### [facility] [address] [place] [address] Public Policy Manager: Ronn Arias MD GFR,non Amer 16 mL/min Low >60 [facility] Comment on above: Performed By: #### U RNA, URTPRT, UMICAO, UEOS, UA #### [facility] [address] [place] [address] 12111 Public Policy Manager: Ronn Arias MD (cont.) [facility] Comment on above: Result Comment: Aver age GFR for 60-69 years old: 85 mL/min/1.73sq m Chronic Kidney Disease: <60 mL/min/1.73sq m Kidney failure: <15 mL/min/1.73sq m eGFR calculated using average adult body mass. Additional eGFR calculator available at: http://www.Munch a Bunch.com/multiple_crcl_2012.htm Performed By: #### U RNA, URTPRT, UMICAO, UEOS, UA #### [facility] [address], [place] [phone] Public Policy Manager: Ronn Arias MD Albumin [Mass/Vol] 3.2 g/dL Low 3.5-5.2 [facility] Comment on above: Performed By: #### U RNA, URTPRT, UMICAO, UEOS, UA #### [facility] [address] [place] [address] 9[address]90 Public Policy Manager: Ronn Arias MD Albumin/Glob Ratio 1.2 Normal 1.0-2.5 [facility] Comment on above: Performed By: #### U RNA, URTPRT, UMICAO, UEOS, UA #### [address] [address] Public Policy Manager: Ronn Arias MD Alkaline Phos 101 U/L Normal 40-129 [facility] Comment on above: Performed By: #### U RNA, URTPRT, UMICAO, UEOS, UA #### [address] [address] Public Policy Manager: Ronn Arias MD ALT [Catalytic activity/Vol] 185 U/L High 5-41 [facility] Comment on above: Performed By: #### U RNA, URTPRT, UMICAO, UEOS, UA #### [address] [address] Public Policy Manager: Ronn Arias MD Anion gap [Moles/Vol] 12 mmol/L Normal 9-17 [facility] Comment on above: Performed By: #### U RNA, URTPRT, UMICAO, UEOS, UA #### [address] [address] Public Policy Manager: Ronn Arias MD AST [Catalytic activity/Vol] 103 U/L High <40 [facility] Comment on above: Performed By: #### U RNA, URTPRT, UMICAO, UEOS, UA #### [facility] [employer] [address] [place] [address]93 Public Policy Manager: Ronn Arias MD Bilirubin [Mass/Vol] 4.3 mg/dL High 0.3-1.2 [facility] Comment on above: Performed By: #### U RNA, URTPRT, UMICAO, UEOS, UA #### [facility] [address] [place] [address] Public Policy Manager: Ronn Arias MD Calcium [Mass/Vol] 6.5 mg/dL Low 8.6-10.4 [facility] Comment on above: Performed By: #### U RNA, URTPRT, UMICAO, UEOS, UA #### [facility] [address] [place] [phone] Public Policy Manager: Ronn Arias MD Chloride [Moles/Vol] 107 mmol/L Normal 98-107 [facility] Comment on above: Performed By: #### U RNA, URTPRT, UMICAO, UEOS, UA #### [facility] [address] [place] [address] 05986 Public Policy Manager: Ronn Arias MD CO2 [Moles/Vol] 19 mmol/L Low 20-31 [facility] Comment on above: Performed By: #### U RNA, URTPRT, UMICAO, UEOS, UA #### [facility] [address] [place] [address] 23530 Public Policy Manager: Ronn Arias MD Glucose [Mass/Vol] 109 mg/dL High 70-99 [facility] Comment on above: Performed By: #### U RNA, URTPRT, UMICAO, UEOS, UA #### [facility] [address] [place] [address] [phone] Public Policy Manager: Ronn Arias MD Potassium [Moles/Vol] 4.4 mmol/L Normal 3.7-5.3 [facility] Comment on above: Performed By: #### U RNA, URTPRT, UMICAO, UEOS, UA #### [facility] [address] [place] [address] 12078 Public Policy Manager: Ronn Arias MD Protein [Mass/Vol] 5.8 g/dL Low 6.4-8.3 [facility] Comment on above: Performed By: #### U RNA, URTPRT, UMICAO, UEOS, UA #### [facility] [address] [place] [address] 60868 Public Policy Manager: Ronn Arias MD Sodium [Moles/Vol] 138 mmol/L Normal 135-144 [facility] Comment on above: Performed By: #### U RNA, URTPRT, UMICAO, UEOS, UA #### [facility] [address] [place] [address] 99264 Public Policy Manager: Ronn Arias MD Urea nitrogen [Mass/Vol] 59 mg/dL High 8-23 [facility] Comment on above: Performed By: #### U RNA, URTPRT, UMICAO, UEOS, UA #### [address] [address] Public Policy Manager: Rnon Arias MD Creatinine [Mass/Vol] 3.86 mg/dL High 0.70-1.20 [facility] Comment on above: Result Comment: ICTE JAYDON SPECIMEN Performed By: #### U RNA, URTPRT, UMICAO, UEOS, UA #### [facility] [employer] [address] [place] [address]283 Public Policy Manager: Ronn Arias MD GFR, Amer 19 mL/min Low >60 [facility] Comment on above: Performed By: #### U RNA, URTPRT, UMICAO, UEOS, UA #### [facility] [address] [place] [address] 6[address]45 Public Policy Manager: Ronn Arias MD GFR,non Amer 16 mL/min Low >60 [facility] Comment on above: Performed By: #### U RNA, URTPRT, UMICAO, UEOS, UA #### [facility] [employer] [address] [place] [address]12 Public Policy Manager: Ronn Arias MD (cont.) Normal [facility] Comment on above: Result Comment: Aver age GFR for 60-69 years old: 85 mL/min/1.73sq m Chronic Kidney Disease: <60 mL/min/1.73sq m Kidney failure: <15 mL/min/1.73sq m eGFR calculated using average adult body mass. Additional eGFR calculator available at: http://www.Munch a Bunch.Schoolfy/multiple_crcl_2012.htm Performed By: #### U RNA, URTPRT, UMICAO, UEOS, UA #### [facility] [place] [address] Public Policy Manager: Ronn Arias MD Albumin [Mass/Vol] 3.0 g/dL Low 3.5-5.2 [facility] Comment on above: Performed By: #### U RNA, URTPRT, UMICAO, UEOS, UA #### [facility] [address] [place] [address] [phone] Public Policy Manager: Ronn Arias MD Albumin/Glob Ratio 1.2 Normal 1.0-2.5 [facility] Comment on above: Performed By: #### U RNA, URTPRT, UMICAO, UEOS, UA #### [facility] [address] [place] [address]2654 Public Policy Manager: Ronn Arias MD Alkaline Phos 98 U/L Normal 40-129 [facility] Comment on above: Performed By: #### U RNA, URTPRT, UMICAO, UEOS, UA #### [facility] [address] [place] [address] Public Policy Manager: Ronn Arias MD ALT [Catalytic activity/Vol] 191 U/L High 5-41 [facility] Comment on above: Performed By: #### U RNA, URTPRT, UMICAO, UEOS, UA #### [facility] [address] [place] [address] 76763 Public Policy Manager: Ronn Arias MD Anion gap [Moles/Vol] 13 mmol/L Normal 9-17 [facility] Comment on above: Performed By: #### U RNA, URTPRT, UMICAO, UEOS, UA #### [facility] [address] [place] [address]30 Public Policy Manager: Ronn Arias MD AST [Catalytic activity/Vol] 112 U/L High <40 [facility] Comment on above: Performed By: #### U RNA, URTPRT, UMICAO, UEOS, UA #### [facility] [address] [place] [address] 31357 Public Policy Manager: Ronn Arias MD Bilirubin [Mass/Vol] 4.5 mg/dL High 0.3-1.2 [facility] Comment on above: Performed By: #### U RNA, URTPRT, UMICAO, UEOS, UA #### [facility] [employer] [address] [place] [address] 78920 Public Policy Manager: Ronn Arias MD Calcium [Mass/Vol] 6.5 mg/dL Low 8.6-10.4 [facility] Comment on above: Performed By: #### U RNA, URTPRT, UMICAO, UEOS, UA #### [address] [address] Public Policy Manager: Ronn Arias MD Chloride [Moles/Vol] 109 mmol/L High 98-107 [facility] Comment on above: Performed By: #### U RNA, URTPRT, UMICAO, UEOS, UA #### [facility] [employer] [address] [place] [address]109 Public Policy Manager: Ronn Arias MD CO2 [Moles/Vol] 18 mmol/L Low 20-31 [facility] Comment on above: Performed By: #### U RNA, URTPRT, UMICAO, UEOS, UA #### [facility] [address] [place] [address]76 Public Policy Manager: Ronn Arias MD Glucose [Mass/Vol] 106 mg/dL High 70-99 [facility] Comment on above: Performed By: #### U RNA, URTPRT, UMICAO, UEOS, UA #### [facility] [address] [place] [address]751 Public Policy Manager: Ronn Arias MD Potassium [Moles/Vol] 4.5 mmol/L Normal 3.7-5.3 [facility] Comment on above: Performed By: #### U RNA, URTPRT, UMICAO, UEOS, UA #### [facility] [employer] [address] [place] [address] Public Policy Manager: Ronn Arias MD Protein [Mass/Vol] 5.5 g/dL Low 6.4-8.3 [facility] Comment on above: Performed By: #### U RNA, URTPRT, UMICAO, UEOS, UA #### [facility] [employer] [address] [place] [phone] Public Policy Manager: Ronn Arias MD Sodium [Moles/Vol] 140 mmol/L Normal 135-144 [facility] Comment on above: Performed By: #### U RNA, URTPRT, UMICAO, UEOS, UA #### [facility] [employer] [address] [place] [address]78 Public Policy Manager: Ronn Arias MD Urea nitrogen [Mass/Vol] 59 mg/dL High 8-23 [facility] Comment on above: Performed By: #### U RNA, URTPRT, UMICAO, UEOS, UA #### [facility] [employer] [address] [place] [phone] Public Policy Manager: Ronn Arias MD Comprehensive Metabolic Pane l w/ Reflex to MGon 01-01-2022 Albumin [Mass/Vol] 3.2 g/dL Low 3.5 - 5.2 g/dL [facility] Albumin/Globulin [Mass ratio] 1.2 {ratio} 1 - 2.5 [facility] ALP (Bld) [Catalytic activity/Vol] 101 U/L 40 - 129 U/L [facility] ALT [Catalytic activity/Vol] 185 U/L High 5 - 41 U/L [facility] Anion gap [Moles/Vol] 12 mmol/L 9 - 17 mmol/L [facility] AST [Catalytic activity/Vol] 103 U/L High NINF - 40 U/L [facility] Bilirubin [Mass/Vol] 4.3 mg/dL High 0.3 - 1 .2 mg/dL [facility] Calcium [Mass/Vol] 6.5 mg/dL Low 8.6 - 10. 4 mg/dL [facility] Chloride [Moles/Vol] 107 mmol/L 98 - 10 7 mmol/L [facility] CO2 [Moles/Vol] 19 mmol/L Low 20 - 31 mmol/L [facility] Creatinine [Mass/Vol] 3.74 mg/dL High 0.7 - 1.2 mg/dL [facility] [employer] Comment on above: ICTERIC SPECIMEN Free PSA/Total PSA [Mass fraction] 5.8 g/dL Low 6.4 - 8.3 g/dL [facility] GFR 20 mL/min Low 60 - PI NF mL/min [facility] [employer] GFR Non- 16 mL/min Low 60 - PINF mL/min [facility] GFR/1.73 sq M.predicted MDRD (S/P/Bld) [Vol rate/Area] [facility] Comment on above: Average GFR for 60-6 9 years old: 85 mL/min/1.73sq m Chronic Kidney Disease: <60 mL/min/1.73sq m Kidney failure: <15 mL/min/1.73sq m eGFR calculated using average adult body mass. Additional eGFR calculator available at: http://www.Munch a Bunch.Schoolfy/multiple_crcl_2011.htm Glucose [Mass/Vol] 109 mg/dL High 70 - 99 mg/dL [facility] Interpretation and review of laboratory results Abnormal [facility] Potassium [Moles/Vol] 4.4 mmol/L 3.7 - 5.3 mmol/L [facility] Sodium [Moles/Vol] 138 mmol/L 135 - 144 mmol/L [facility] Urea nitrogen (BldV) [Mass/Vol] 59 mg/dL High 8 - 23 mg/dL [facility] Albumin [Mass/Vol] 3 g/dL Low 3.5 - 5.2 g/dL [facility] Albumin/Globulin [Mass ratio] 1.2 {ratio} 1 - 2.5 [facility] ALP (Bld) [Catalytic activity/Vol] 98 U/L 40 - 129 U/L [facility] ALT [Catalytic activity/Vol] 191 U/L High 5 - 41 U/L [facility] Anion gap [Moles/Vol] 13 mmol/L 9 - 17 mmol/L [facility] AST [Catalytic activity/Vol] 112 U/L High NINF - 40 U/L [facility] Bilirubin [Mass/Vol] 4.5 mg/dL High 0.3 - 1 .2 mg/dL [facility] Calcium [Mass/Vol] 6.5 mg/dL Low 8.6 - 10. 4 mg/dL [facility] Chloride [Moles/Vol] 109 mmol/L High 98 - 10 7 mmol/L [facility] CO2 [Moles/Vol] 18 mmol/L Low 20 - 31 mmol/L [facility] Creatinine [Mass/Vol] 3.86 mg/dL High 0.7 - 1.2 mg/dL [facility] Comment on above: ICTERIC SPECIMEN Free PSA/Total PSA [Mass fraction] 5.5 g/dL Low 6.4 - 8.3 g/dL [facility] GFR 19 mL/min Low 60 - PI NF mL/min [facility] GFR Non- 16 mL/min Low 60 - PINF mL/min [facility] GFR/1.73 sq M.predicted MDRD (S/P/Bld) [Vol rate/Area] [facility] Comment on above: Average GFR for 60-6 9 years old: 85 mL/min/1.73sq m Chronic Kidney Disease: <60 mL/min/1.73sq m Kidney failure: <15 mL/min/1.73sq m eGFR calculated using average adult body mass. Additional eGFR calculator available at: http://www.Appian/multiple_crcl_2012.htm Glucose [Mass/Vol] 106 mg/dL High 70 - 99 mg/dL [facility] Potassium [Moles/Vol] 4.5 mmol/L 3.7 - 5.3 mmol/L [facility] Sodium [Moles/Vol] 140 mmol/L 135 - 144 mmol/L [facility] Urea nitrogen (BldV) [Mass/Vol] 59 mg/dL High 8 - 23 mg/dL [facility] Differentialon 01-01-2022 Abs. Basophil 0.03 k/uL Normal 0.00-0.20 [facility] Comment on above: Performed By: #### U RNA, URTPRT, UMICAO, UEOS, UA #### [facility] [address] [place] [address] Public Policy Manager: Ronn Arias MD Abs.Imm.Granulocyte 0.10 k/uL Normal 0.00-0.30 [facility] Comment on above: Performed By: #### U RNA, URTPRT, UMICAO, UEOS, UA #### [facility] [address] [place] [address] Public Policy Manager: Ronn Arias MD Abs.Neutrophil (Seg) 14.48 k/uL High 1.50-8.10 [facility] Comment on above: Performed By: #### U RNA, URTPRT, UMICAO, UEOS, UA #### [facility] [address] [place] [address]48 Public Policy Manager: Ronn Arias MD Basophils/100 WBC (Bld) 0 % Normal 0-2 [facility] Comment on above: Performed By: #### U RNA, URTPRT, UMICAO, UEOS, UA #### [facility] [address] [place] [phone] Public Policy Manager: Ronn Arias MD Eosinophils (Bld) [#/Vol] 0.06 10*3/uL Normal 0.00-0.44 [facility] Comment on above: Performed By: #### U RNA, URTPRT, UMICAO, UEOS, UA #### [facility] [address] [place] [phone] Public Policy Manager: Ronn Arias MD Eosinophils/100 WBC (Bld) 0 % Low 1-4 [facility] Comment on above: Performed By: #### U RNA, URTPRT, UMICAO, UEOS, UA #### [place] [address] Public Policy Manager: Ronn Arias MD Immature granulocytes/100 WBC (Bld) 1 % High 0 [facility] Comment on above: Performed By: #### U RNA, URTPRT, UMICAO, UEOS, UA #### [place] [address] Public Policy Manager: Ronn Arias MD Lymphocytes (Bld) [#/Vol] 0.87 10*3/uL Low 1.10-3.70 [facility] Comment on above: Performed By: #### U RNA, URTPRT, UMICAO, UEOS, UA #### [facility] [address] [place] [address] Public Policy Manager: Ronn Arias MD Lymphocytes/100 WBC (Bld) 5 % Low 24-43 [facility] Comment on above: Performed By: #### U RNA, URTPRT, UMICAO, UEOS, UA #### [facility] [address] [place] [address] Public Policy Manager: Ronn Arias MD Monocytes (Bld) [#/Vol] 1.28 10*3/uL High 0.10-1.20 [facility] Comment on above: Performed By: #### U RNA, URTPRT, UMICAO, UEOS, UA #### [facility] [address] [place] [address] Public Policy Manager: Ronn Arias MD Monocytes/100 WBC (Bld) 8 % Normal 3-12 [facility] Comment on above: Performed By: #### U RNA, URTPRT, UMICAO, UEOS, UA #### [facility] [address] [place] [address] Public Policy Manager: Ronn Arias MD Neutrophil (Seg) 86 % High 36-65 [facility] Comment on above: Performed By: #### U RNA, URTPRT, UMICAO, UEOS, UA #### [facility] [address] [place] [address] Public Policy Manager: Ronn Arias MD RBC morphology finding Nom (Bld) ANISOCYTOSIS PRESENT Normal [facility] Comment on above: Performed By: #### U RNA, URTPRT, UMICAO, UEOS, UA #### [facility] [address] [place] [address] Public Policy Manager: Ronn Arias MD Absolute Eos # 0.06 [facility] Immature Granulocyte 0.10 [facility] Absolute Lymph # 0.87 Low [facility] Absolute [place] # 1.28 High [facility] Basophils (Bld) [#/Vol] 0.03 10*3/uL [facility] Basophils/100 WBC (Bld) 0 % 0 - 2 % [facility] Eosinophils/100 WBC (Bld) 0 % Low 1 - 4 % [facility] Immature granulocytes/100 WBC (Bld) 1 % High 0 [facility] Lymphocytes/100 WBC (Bld) 5 % Low 24 - 43 % [facility] Monocytes/100 WBC (Bld) 8 % 3 - 12 % [facility] RBC (Bld) [#/Vol] ANISOCYTOSIS PRESENT [facility] Segmented neutrophils/100 WBC (Bld) 86 % High 36 - 65 % [facility] Segs Absolute 14.48 High [facility] Hemoglobin A1Con 01-01-2022 Glucose [Mass/Vol] 117 mg/dL Normal [facility] Comment on above: Result Comment: The ADA and AACC recommend providing the estimated average glucose result to permit better patient understanding of their HBA1c result. Performed By: #### U RNA, URTPRT, UMICAO, UEOS, UA #### [facility] [address] [place], [place] [phone] Public Policy Manager: Ronn Arias MD HbA1c (Bld) [Mass fraction] 5.7 % Normal 4.0-6.0 [facility] Comment on above: Performed By: #### U RNA, URTPRT, UMICAO, UEOS, UA #### [facility] [address] [place], [place] [phone] Public Policy Manager: Ronn Arias MD Glucose [Mass/Vol] 117 mg/dL [facility] [facility] Comment on above: The ADA and AACC rec ommend providing the estimated average glucose result to permit better patient understanding of their HBA1c result. HbA1c (Bld) [Mass fraction] 5.7 % 4 - 6 % [facility] Hepatic Function Panelon Albumin [Mass/Vol] 3.2 g/dL Low 3.5 - 5.2 g/dL [facility] Albumin/Globulin [Mass ratio] 1.3 {ratio} 1 - 2.5 [facility] ALP (Bld) [Catalytic activity/Vol] 98 U/L 40 - 129 U/L [facility] ALT [Catalytic activity/Vol] 202 U/L High 5 - 41 U/L [facility] AST [Catalytic activity/Vol] 117 U/L High NINF - 40 U/L [facility] Bilirubin [Mass/Vol] 4.4 mg/dL High 0.3 - 1 .2 mg/dL [facility] Bilirubin, Indirect 0.3 mg/dL 0 - 1 mg/dL [facility] Bilirubin.indirect [Mass/Vol] 4.1 mg/dL High NINF - 0.31 mg/dL [facility] Free PSA/Total PSA [Mass fraction] 5.6 g/dL Low 6.4 - 8.3 g/dL [facility] Interpretation and review of laboratory results Abnormal [facility] Lactate Dehydrogenaseon 12-21 LDH [Catalytic activity/Vol] 214 U/L Normal 135-225 [facility] Comment on above: Performed By: #### U RNA, URTPRT, UMICAO, UEOS, UA #### [facility] [address] [place] [phone] Public Policy Manager: Ronn Arias MD LD 214 U/L 135 - 225 U/L [facility] Lactate, Sepsison 01-01-2022 Lactic Acid,Sep Wbld 1.2 mmol/L Normal 0.5-1.9 [facility] Comment on above: Performed By: #### U RNA, URTPRT, UMICAO, UEOS, UA #### [facility] [address] [place] [phone] Public Policy Manager: Ronn Arias MD Lactic Acid, Sepsis, Whole Blood 1.2 mmol/L 0.5 - 1.9 mmol/L [facility] Lactic Acid,Sep Wbld 1.3 mmol/L Normal 0.5-1.9 [facility] Comment on above: Performed By: #### U RNA, URTPRT, UMICAO, UEOS, UA #### [facility] [place] [address] Public Policy Manager: Ronn Arias MD Lactic Acid, Sepsis, Whole Blood 1.3 mmol/L 0.5 - 1.9 mmol/L [facility] Lactic Acid,Sep Wbld 0.9 mmol/L Normal 0.5-1.9 [facility] Comment on above: Performed By: #### U RNA, URTPRT, UMICAO, UEOS, UA #### [facility] [address] [place] [phone] Public Policy Manager: Ronn Arias MD Lactic Acid, Sepsis, Whole Blood 0.9 mmol/L 0.5 - 1.9 mmol/L [facility] Lactic Acid,Sep Wbld 1.3 mmol/L Normal 0.5-1.9 [facility] Comment on above: Performed By: #### U RNA, URTPRT, UMICAO, UEOS, UA #### [facility] [address] [place] [phone] Public Policy Manager: Ronn Arias MD Lactic Acid, Sepsis, Whole Blood 1.3 mmol/L 0.5 - 1.9 mmol/L [facility] Lipaseon 01-01-2022 Lipase [Catalytic activity/Vol] 1918 U/L High 13-60 [facility] Comment on above: Performed By: #### U RNA, URTPRT, UMICAO, UEOS, UA #### [facility] [address] [place] [phone] Public Policy Manager: Ronn Arias MD Lipase [Catalytic activity/Vol] 1918 U/L High 13 - 60 U/L [facility] Lipid Panelon 01-01-2022 Cholesterol [Mass/Vol] 103 mg/dL NINF - 200 mg/dL [facility] Comment on above: Cholesterol Guidelines: <200 Desirable 200-240 Borderline >240 Undesirable Cholesterol in HDL [Mass/Vol] 46 mg/dL 40 - PINF mg/dL [facility] Comment on above: HDL Guidelines: <40 Undesirable 40-59 Borderline >59 Desirable Cholesterol in LDL [Mass/Vol] 46 mg/dL 0 - 130 mg/dL [facility] Comment on above: LDL Guidelines: <100 Desirable 100-129 Near to/above Desirable 130-159 Borderline >159 Undesirable Direct (measured) LDL and calculated LDL are not interchangeable tests. Cholesterol.total/Ch olesterol in HDL [Mass ratio] 2.2 {ratio} NINF - 5 [facility] Triglyceride [Mass/Vol] 53 mg/dL NINF - 150 mg/dL [facility] Comment on above: Triglyceride Guidelines: <150 Desirable 150-199 Borderline 200-499 High >499 Very high Based on AHA Guidelines for fasting triglyceride, January 2012. [facility] Lipid Profileon 01-01-2022 Cholesterol [Mass/Vol] 103 mg/dL Normal <200 [facility] Comment on above: Result Comment: Cholesterol Guidelines: <200 Desirable 200-240 Borderline >240 Undesirable Performed By: #### U RNA, URTPRT, UMICAO, UEOS, UA #### [facility] [address] [place] [address] [phone] Public Policy Manager: Ronn Arias MD Cholesterol in HDL [Mass/Vol] 46 mg/dL Normal >40 [facility] Comment on above: Result Comment: HDL Guidelines: <40 Undesirable 40-59 Borderline >59 Desirable Performed By: #### U RNA, URTPRT, UMICAO, UEOS, UA #### [facility] [address] [place] [address] [phone] Public Policy Manager: Ronn Arias MD Cholesterol in LDL [Mass/Vol] 46 mg/dL Normal 0-130 [facility] Comment on above: Result Comment: LDL Guidelines: <100 Desirable 100-129 Near to/above Desirable 130-159 Borderline >159 Undesirable Direct (measured) LDL and calculated LDL are not interchangeable tests. Performed By: #### U RNA, URTPRT, UMICAO, UEOS, UA #### [facility] [address] [place] [address] [phone] Public Policy Manager: Ronn Arias MD Cholesterol.total/Ch olesterol in HDL [Mass ratio] 2.2 {ratio} Normal <5 [facility] Comment on above: Performed By: #### U RNA, URTPRT, UMICAO, UEOS, UA #### [facility] [employer] [address] [place] [phone] Public Policy Manager: Ronn Arias MD Triglyceride [Mass/Vol] 53 mg/dL Normal <150 [facility] Comment on above: Result Comment: Triglyceride Guidelines: <150 Desirable 150-199 Borderline 200-499 High >499 Very high Based on AHA Guidelines for fasting triglyceride, January 2012. Performed By: #### U RNA, URTPRT, UMICAO, UEOS, UA #### [facility] [employer] [address] [place] [phone] Public Policy Manager: Ronn Arias MD Liver Profileon 01-01-2022 Albumin [Mass/Vol] 3.2 g/dL Low 3.5-5.2 [facility] Comment on above: Performed By: #### U RNA, URTPRT, UMICAO, UEOS, UA #### [facility] [employer] [address] [place] [phone] Public Policy Manager: Ronn Arias MD Albumin/Glob Ratio 1.3 Normal 1.0-2.5 [facility] Comment on above: Performed By: #### U RNA, URTPRT, UMICAO, UEOS, UA #### [facility] [employer] [address] [place] [phone] Public Policy Manager: Ronn Arias MD Alkaline Phos 98 U/L Normal 40-129 [facility] Comment on above: Performed By: #### U RNA, URTPRT, UMICAO, UEOS, UA #### [facility] [employer] [address] [place] [phone] Public Policy Manager: Ronn Arias MD ALT [Catalytic activity/Vol] 202 U/L High 5-41 [facility] Comment on above: Performed By: #### U RNA, URTPRT, UMICAO, UEOS, UA #### [facility] [address] [place] [address] Public Policy Manager: Ronn Arias MD AST [Catalytic activity/Vol] 117 U/L High <40 [facility] Comment on above: Performed By: #### U RNA, URTPRT, UMICAO, UEOS, UA #### [facility] [address] [place] [phone] Public Policy Manager: Ronn Arias MD Bilirubin [Mass/Vol] 4.4 mg/dL High 0.3-1.2 [facility] Comment on above: Performed By: #### U RNA, URTPRT, UMICAO, UEOS, UA #### [facility] [address] [place] [phone] Public Policy Manager: Ronn Arias MD Bilirubin, Indirect 0.3 mg/dL Normal 0.00-1.00 [facility] Comment on above: Performed By: #### U RNA, URTPRT, UMICAO, UEOS, UA #### [facility] [address] [place] [phone] Public Policy Manager: Ronn Arias MD Bilirubin.indirect [Mass/Vol] 4.1 mg/dL High <0.31 [facility] Comment on above: Performed By: #### U RNA, URTPRT, UMICAO, UEOS, UA #### [facility] [address] [place] [phone] Public Policy Manager: Ronn Arias MD Protein [Mass/Vol] 5.6 g/dL Low 6.4-8.3 [facility] Comment on above: Performed By: #### U RNA, URTPRT, UMICAO, UEOS, UA #### [facility] [address] [place] [phone] Public Policy Manager: Ronn Arias MD MRI ABDOMEN WO CONTRAST [...] Aliya Salgado MD 01/01/22 Final result Normal [facility] 1. Christen pancreatic inflammation suggestive of [...] findings do not require dedicated imaging follow-up. [facility] RIS CONSOLIDATED Aliya Salgado MD - [...] for acute cholecystitis, biliary dilatation or choledocholithiasis. [employer] Phone: Radiology Study observation (narrative) [employer] Phone: MRI ABDOMEN WO CONTRAST MRCP Ordered By: Aliya Salgado on 01-01-2022 [employer] Phone: Magnesiumon 01-01-2022 Magnesium [Mass/Vol] 1.7 mg/dL Normal 1.6-2.6 [facility] Comment on above: Performed By: #### U RNA, URTPRT, UMICAO, UEOS, UA #### [facility] [address] [place] [address] Public Policy Manager: Ronn Arias MD Magnesium [Mass/Vol] 1.7 mg/dL 1.6 - 2 .6 mg/dL [facility] Magnesium [Mass/Vol] 1.7 mg/dL Normal 1.6-2.6 [facility] Comment on above: Performed By: #### U RNA, URTPRT, UMICAO, UEOS, UA #### [facility] [address] [place] [address] Public Policy Manager: Ronn Arias MD Magnesium [Mass/Vol] 1.7 mg/dL 1.6 - 2 .6 mg/dL [facility] No Panel Informationon 01-01 Interpretation and review of laboratory results Abnormal [facility] Interpretation and review of laboratory results Abnormal [facility] PTon 01-01-2022 INR Coag (PPP) [Relative time] 1.2 {INR} Normal [facility] Comment on above: Result Comment: Therapeutic Range: Moderate Anticoagulant Intensity: INR = 2.0-3.0 High Anticoagulant Intensity: INR = 2.5-3.5 Performed By: #### U RNA, URTPRT, UMICAO, UEOS, UA #### [facility] [place] [address] Public Policy Manager: Ronn Arias MD PT Coag (PPP) [Time] 12.7 s High 9.1-12.3 [facility] Comment on above: Performed By: #### U RNA, URTPRT, UMICAO, UEOS, UA #### [facility] [place], [place] [phone] Public Policy Manager: Ronn Arias MD Phosphoruson 01-01-2022 Phosphate [Mass/Vol] 3.0 mg/dL 2.5 - 4 .5 mg/dL [facility] Phosphorus, Inorg.on 022 Phosphorus, Inorg. 3.0 mg/dL Normal 2.5-4.5 [facility] Comment on above: Performed By: #### U RNA, URTPRT, UMICAO, UEOS, UA #### [facility] [address] [place] [phone] Public Policy Manager: Ronn Arias MD Procalcitoninon 01-01-2022 Procalcitonin 67.66 ng/mL High <0.09 [facility] Comment on above: Result Comment: Suspected [...] entered into the Change in Procalcitonin Calculator (www.fdcyhp-jfz-hxwwkssgzf.Schoolfy) to determine the patient's Mortality Risk Prognosis In healthy neonates, plasma Procalcitonin (PCT) concentrations increase gradually after , reaching peak values at about 24 hours of age then decrease to normal values below 0.5 ng/mL by 48-72 hours of age. Performed By: #### U RNA, URTPRT, UMICAO, UEOS, UA #### [facility] [place] [address] Public Policy Manager: Ronn Arias MD Interpretation and review of laboratory results Abnormal [facility] Procalcitonin 67.66 ng/mL High NINF - 0.09 ng/mL [facility] Comment on above: Suspected Sepsis: <0.50 ng/mL [...] entered into the Change in Procalcitonin Calculator (www.aonawg-qrc-tvqgwntiqh.Schoolfy) to determine the patient's Mortality Risk Prognosis In healthy neonates, plasma Procalcitonin (PCT) concentrations increase gradually after , reaching peak values at about 24 hours of age then decrease to normal values below 0.5 ng/mL by 48-72 hours of age. Protein, urine, randomon Protein (U) [Mass/Vol] 59 mg/dL [facility] Comment on above: No normal range esta blished. [facility] Protime-INRon 01-01-2022 INR Coag (Bld) [Relative time] 1.2 {INR} [facility] Comment on above: Therapeutic Range: Moderate Anticoagulant Intensity: INR = 2.0-3.0 High Anticoagulant Intensity: INR = 2.5-3.5 Interpretation and review of laboratory results Abnormal [facility] PT Coag (PPP) [Time] 12.7 s High [facility] Sodium, Random Uron 01-02-20 Sodium (U) [Moles/Vol] 37 mmol/L Normal [facility] Comment on above: Result Comment: No n ormal range established. Performed By: #### U RNA, URTPRT, UMICAO, UEOS, UA #### [facility] [address] [place] [address] Public Policy Manager: Ronn Arias MD Sodium, urine, randomon 12-21 Sodium (U) [Moles/Vol] 37 mmol/L [facility] Comment on above: No normal range esta blished. [facility] Triglycerideon 01-01-2022 Triglyceride [Mass/Vol] 58 mg/dL NINF - 150 mg/dL [facility] Comment on above: Triglyceride Guidelines: <150 Desirable 150-199 Borderline 200-499 High >499 Very high Based on AHA Guidelines for fasting triglyceride, January 2012. Triglycerideson 01-01-2022 Triglyceride [Mass/Vol] 58 mg/dL Normal <150 [facility] Comment on above: Result Comment: Triglyceride Guidelines: <150 Desirable 150-199 Borderline 200-499 High >499 Very high Based on AHA Guidelines for fasting triglyceride, January 2012. Performed By: #### U RNA, URTPRT, UMICAO, UEOS, UA #### [facility] [address] [place] [address] Public Policy Manager: Ronn Arias MD Troponinon 01-01-2022 Troponin, High Sens 19 ng/L Normal 0-22 [facility] Comment on above: Result Comment: High Sensitivity Troponin values cannot be compared with other Troponin methodologies. Patients with high levels of Biotin oral intake (i.e >5mg/day) may have falsely decreased Troponin levels. Samples collected within 8 hours of biotin intake may require additional information for diagnosis. Performed By: #### U RNA, URTPRT, UMICAO, UEOS, UA #### [facility] [address] [place], [place] [phone] Public Policy Manager: Ronn Arias MD Troponin, High Sensitivity 19 ng/L 0 - 22 ng/L [facility] Comment on above: High Sensitivity Troponin values cannot be compared with other Troponin methodologies. Patients with high levels of Biotin oral intake (i.e >5mg/day) may have falsely decreased Troponin levels. Samples collected within 8 hours of biotin intake may require additional information for diagnosis. [facility] Troponin, High Sens 17 ng/L Normal 0-22 [facility] Comment on above: Result Comment: High Sensitivity Troponin values cannot be compared with other Troponin methodologies. Patients with high levels of Biotin oral intake (i.e >5mg/day) may have falsely decreased Troponin levels. Samples collected within 8 hours of biotin intake may require additional information for diagnosis. Performed By: #### U RNA, URTPRT, UMICAO, UEOS, UA #### [facility] [address] [place], [place] [phone] Public Policy Manager: Ronn Arias MD Troponin, High Sensitivity 17 ng/L 0 - 22 ng/L [facility] [employer] Comment on above: High Sensitivity Troponin values cannot be compared with other Troponin methodologies. Patients with high levels of Biotin oral intake (i.e >5mg/day) may have falsely decreased Troponin levels. Samples collected within 8 hours of biotin intake may require additional information for diagnosis. [facility] Troponin, High Sens 18 ng/L Normal 0-22 [facility] Comment on above: Result Comment: High Sensitivity Troponin values cannot be compared with other Troponin methodologies. Patients with high levels of Biotin oral intake (i.e >5mg/day) may have falsely decreased Troponin levels. Samples collected within 8 hours of biotin intake may require additional information for diagnosis. Performed By: #### U RNA, URTPRT, JAIRON RIVERS, UA #### [facility] [address] [place], [place] [phone] Public Policy Manager: Ronn Arias MD Troponin, High Sens 18 ng/L Normal 0-22 [facility] Comment on above: Result Comment: High Sensitivity Troponin values cannot be compared with other Troponin methodologies. Patients with high levels of Biotin oral intake (i.e >5mg/day) may have falsely decreased Troponin levels. Samples collected within 8 hours of biotin intake may require additional information for diagnosis. Performed By: #### U RNA, URTPRT, WIN RIVERSOS, UA #### [facility] [address] [place] [address] Public Policy Manager: Ronn Arias MD Troponin, High Sensitivity 18 ng/L 0 - 22 ng/L [facility] Comment on above: High Sensitivity Troponin values cannot be compared with other Troponin methodologies. Patients with high levels of Biotin oral intake (i.e >5mg/day) may have falsely decreased Troponin levels. Samples collected within 8 hours of biotin intake may require additional information for diagnosis. [facility] [employer] Troponin, High Sensitivity 18 ng/L 0 - 22 ng/L [facility] Comment on above: High Sensitivity Troponin values cannot be compared with other Troponin methodologies. Patients with high levels of Biotin oral intake (i.e >5mg/day) may have falsely decreased Troponin levels. Samples collected within 8 hours of biotin intake may require additional information for diagnosis. Troponin, High Sens 18 ng/L Normal 0-22 [facility] Comment on above: Result Comment: High Sensitivity Troponin values cannot be compared with other Troponin methodologies. Patients with high levels of Biotin oral intake (i.e >5mg/day) may have falsely decreased Troponin levels. Samples collected within 8 hours of biotin intake may require additional information for diagnosis. Performed By: #### U RNA, URTPRT, UMICAO UEOS, UA #### [facility] [address] [place], [place] [phone] Public Policy Manager: Ronn Arias MD Troponin, High Sens 17 ng/L Normal 0-22 [facility] Comment on above: Result Comment: High Sensitivity Troponin values cannot be compared with other Troponin methodologies. Patients with high levels of Biotin oral intake (i.e >5mg/day) may have falsely decreased Troponin levels. Samples collected within 8 hours of biotin intake may require additional information for diagnosis. Performed By: #### U RNA, URTPRT, UMICAO, UEOS, UA #### [facility] [address] [place], [place] [phone] Public Policy Manager: Ronn Arias MD Troponin, High Sensitivity 18 ng/L 0 - 22 ng/L [facility] Comment on above: High Sensitivity Troponin values cannot be compared with other Troponin methodologies. Patients with high levels of Biotin oral intake (i.e >5mg/day) may have falsely decreased Troponin levels. Samples collected within 8 hours of biotin intake may require additional information for diagnosis. [facility] Troponin, High Sens 15 ng/L Normal 0-22 [facility] Comment on above: Result Comment: High Sensitivity Troponin values cannot be compared with other Troponin methodologies. Patients with high levels of Biotin oral intake (i.e >5mg/day) may have falsely decreased Troponin levels. Samples collected within 8 hours of biotin intake may require additional information for diagnosis. Performed By: #### U RNA, URTPRT, UMICAO, UEOS, UA #### [facility] [address] [place], [place] [phone] Public Policy Manager: Ronn Arias MD Troponin, High Sensitivity 17 ng/L 0 - 22 ng/L [facility] Comment on above: High Sensitivity Troponin values cannot be compared with other Troponin methodologies. Patients with high levels of Biotin oral intake (i.e >5mg/day) may have falsely decreased Troponin levels. Samples collected within 8 hours of biotin intake may require additional information for diagnosis. [facility] Troponin, High Sensitivity 15 ng/L 0 - 22 ng/L [facility] Comment on above: High Sensitivity Troponin values cannot be compared with other Troponin methodologies. Patients with high levels of Biotin oral intake (i.e >5mg/day) may have falsely decreased Troponin levels. Samples collected within 8 hours of biotin intake may require additional information for diagnosis. [facility] UA w/Reflex Cultureon 2021 Bilirubin, SemiQt,Ur MOD Abnormal NEG [facility] Comment on above: Performed By: #### U RNA, URTPRT, UMICAO, UEOS, UA #### [facility] [address] [place] [phone] Public Policy Manager: Ronn Arias MD Blood, Urine SMALL Abnormal NEG [facility] Comment on above: Performed By: #### U RNA, URTPRT, UMICAO, UEOS, UA #### [facility] [address] [place] [address] Public Policy Manager: Ronn Arias MD Clarity (U) Turbid Abnormal CLEAR [facility] Comment on above: Performed By: #### U RNA, URTPRT, UMICAO, UEOS, UA #### [facility] [address] [place] [phone] Public Policy Manager: Ronn Arias MD Color (U) Dark Yellow Abnormal YEL [facility] Comment on above: Performed By: #### U RNA, URTPRT, UMICAO, UEOS, UA #### [facility] [address] [place] [phone] Public Policy Manager: Ronn Arias MD Glucose Ql (U) Negative Normal NEG [facility] Comment on above: Performed By: #### U RNA, URTPRT, UMICAO, UEOS, UA #### [facility] [address] [place] [phone] Public Policy Manager: Ronn Arias MD Ketones Ql (U) Negative Normal NEG [facility] Comment on above: Performed By: #### U RNA, URTPRT, UMICAO, UEOS, UA #### [address] [address] Public Policy Manager: Ronn Arias MD Leukocyte esterase Test strip Ql (U) Negative Normal NEG [facility] Comment on above: Performed By: #### U RNA, URTPRT, UMICAO, UEOS, UA #### [address] [address] Public Policy Manager: Ronn Arias MD Nitrite,Ur Negative Normal NEG [facility] Comment on above: Performed By: #### U RNA, URTPRT, UMICAO, UEOS, UA #### [address] [address] Public Policy Manager: Ronn Arias MD PH,Ur 5.0 Normal 5.0-8.0 [facility] Comment on above: Performed By: #### U RNA, URTPRT, UMICAO, UEOS, UA #### [address] [address] Public Policy Manager: Ronn Arias MD Protein Ql (U) 1+ Abnormal NEG [facility] Comment on above: Performed By: #### U RNA, URTPRT, UMICAO, UEOS, UA #### [address] [address] Public Policy Manager: Ronn Airas MD Spec. Cisco,Ur 1.013 Normal 1.005-1.03 0 [facility] Comment on above: Performed By: #### U RNA, URTPRT, UMICAO, UEOS, UA #### [address] [address] Public Policy Manager: Ronn Arias MD Urobilinogen,Ur Normal Normal NORM [facility] Comment on above: Performed By: #### U RNA, URTPRT, UMICAO, UEOS, UA #### [facility] [address] [place], [place] [phone] Public Policy Manager: Ronn Arias MD Urinalysis with Reflex to Cu ltureon 01-01-2022 Bilirubin Urine MOD Abnormal NEGATIVE [facility] Color, UA Dark Yellow Abnormal Yellow [facility] Glucose, Ur Negative NEGATIVE [facility] Interpretation and review of laboratory results Abnormal [facility] Ketones Ql (U) Negative NEGATIVE [facility] Leukocyte esterase Test strip Ql (U) Negative NEGATIVE [facility] Nitrite, Urine Negative NEGATIVE [facility] pH, UA 5.0 5 - 8 [facility] Protein, UA 1+ Abnormal NEGATIVE [facility] Specific Cisco, UA 1.013 1.005 - 1.03 [facility] Turbidity UA Turbid Abnormal Clear [facility] Urine Hgb SMALL Abnormal NEGATIVE [facility] Urobilinogen, Urine Normal Normal [facility] [facility] Urinalysis, Microon 01-02-20 22 Casts UA 20 TO 50 [facility] Casts UA COARSELY GRANULAR [facility] Epithelial Cells UA 5 TO 10 [facility] RBC, UA 10 TO 20 [facility] WBC, UA 10 TO 20 [facility] Urinalysis,Microon 2 Casts 20 TO 50 Normal 0-2 [facility] Comment on above: Result Comment: COAR ASHLEY GRANULAR Performed By: #### U RNA, URTPRT, UMICAO, UEOS, UA #### [facility] [address], [place] [id number] Public Policy Manager: Ronn Arias MD Epithelial cells LM Ql (Urine sed) 5 TO 10 Normal 0-5 [facility] Comment on above: Performed By: #### U RNA, URTPRT, UMICAO, UEOS, UA #### [facility] [address], [place] [id number] Public Policy Manager: Ronn Arias MD Urine RBC's 10 TO 20 Normal 0-2 [facility] Comment on above: Performed By: #### U RNA, URTPRT, UMICAO, UEOS, UA #### [facility] [address], [place] [id number] Public Policy Manager: Ronn Arias MD Urine WBC's 10 TO 20 Normal 0-5 [facility] Comment on above: Performed By: #### U RNA, URTPRT, UMICAO, UEOS, UA #### [facility] [address], [place] [id number] Public Policy Manager: Ronn Arias MD CBC AUTO DIFFon 12-31-2021 BASO # 0.1 103/ul Normal 0.0-0.1 [facility] Comment on above: Performed By: #### H STROPN #### [facility] [address] [place] [address] Dr. Kulwant Brennan Basophils/100 WBC (Bld) 0.2 % Normal 0.2-2.0 [facility] Comment on above: Performed By: #### H STROPN #### [facility] [address] [place] [address] Dr. Kulwant Brennan EO # 0.0 103/ul Normal 0.0-0.7 [facility] Comment on above: Performed By: #### H STROPN #### [facility] [address] [address] [address] Kulwant Brennan Eosinophils/100 WBC (Bld) 0.0 % Critically low 0.9-7.0 [facility] Comment on above: Performed By: #### H STROPN #### [facility] [address] [place] [address] Dr. Kulwant Brennan Erythrocyte distribution width (RBC) [Ratio] 14.4 % Normal 11.0-15.0 [facility] Comment on above: Performed By: #### H STROPN #### [facility] [address] [place] [address] Dr. Kulwant Brennan Hematocrit (Bld) [Volume fraction] 37.9 % Critically low 42.0-54.0 [facility] Comment on above: Performed By: #### H STROPN #### [facility] [address] [address] [address] Kulwant Brennan Hemoglobin (Bld) [Mass/Vol] 12.2 g/dL Critically low 14.0-18.0 [facility] Comment on above: Performed By: #### H STROPN #### [facility] [address] [address] [address] Kulwant Brennan IG # 0.16 10e3/ul Critically high 0.00-0.03 [facility] Comment on above: Performed By: #### H STROPN #### [facility] [address] [place] [address] Dr. Kulwant Brennan IG % 0.6 % Critically high 0.0-0.5 [facility] Comment on above: Performed By: #### H STROPN #### [facility] [address] [place] [address] Dr. Kulwant Brennan LYMPH # 0.7 103/ul Critically low 1.2-3.8 [facility] Comment on above: Performed By: #### H STROPN #### [facility] [address] [place] [address] Dr. Kulwant Brennan Lymphocytes/100 WBC (Bld) 2.9 % Critically low 20.5-60.0 [facility] Comment on above: Performed By: #### H STROPN #### [facility] [address] [place] [address] Dr. Kulwant Brennan MANUAL DIFF REQ NO Normal [facility] Comment on above: Performed By: #### H STROPN #### [facility] [address] [place] [address] Dr. Kulwant Brennan MCH (RBC) [Entitic mass] 27.7 pg Normal 25.9-34.0 [facility] Comment on above: Performed By: #### H STROPN #### [facility] [address] [place] [address] Dr. Kulwant Brennan MCHC (RBC) [Mass/Vol] 32.2 g/dL Normal 29.9-35.2 [facility] Comment on above: Performed By: #### H STROPN #### [facility] [address] [place] [address] Dr. Kulwant Brennan MCV (RBC) [Entitic vol] 86.1 fL Normal 80.0-94.0 [facility] Comment on above: Performed By: #### H STROPN #### [facility] [address] [place] [address] Dr. Kulwant Brennan MONO # 1.6 103/ul Critically high 0.3-0.8 [facility] Comment on above: Performed By: #### H STROPN #### [facility] [address] [place] [address] Dr. Kulwant Brennan Monocytes/100 WBC (Bld) 6.4 % Normal 1.7-12.0 [facility] Comment on above: Performed By: #### H STROPN #### [facility] [address] [place] [address] Dr. Kulwant Brennan NEUT # 22.8 103/ul Critically high 1.4-6.5 [facility] Comment on above: Performed By: #### H STROPN #### [facility] [address] [place] [address] Dr. Kulwant Brennan Neutrophils/100 WBC (Bld) 89.9 % Critically high 43.0-75.0 [facility] Comment on above: Performed By: #### H STROPN #### [facility] [address] [place] [address] Dr. Kulwant Brennan Platelet mean volume (Bld) [Entitic vol] 10.0 fL Normal 9.5-13.5 [facility] Comment on above: Performed By: #### H STROPN #### [facility] [address] [place] [address] Dr. Kulwant Brennan PLT 211 103/ul Normal 150-450 [facility] Comment on above: Performed By: #### H STROPN #### [facility] [address] [place] [address] Dr. Kulwant Brennan RBC 4.40 106/ul Critically low 4.70-6.10 [facility] Comment on above: Performed By: #### H STROPN #### [facility] [address] [address] [address] Kulwant Brennan WBC 25.3 103/ul Critically high 4.0-11.0 [facility] Comment on above: Performed By: #### H STROPN #### [facility] [address] [address] [address] Kulwant Brennan CULTURE BLOODon 12-31-2021 Microscopic examination of blood, culture Culture Observations: NO GROWTH AT 5 DAYS. Normal [facility] Comment on above: Performed By: #### B LDCX2 ####[facility] [address] [address]Dr. Kulwant Brennan Performed By: #### B LDCX1 ####[facility] [address] [address]Dr. Kulwant Brennan CULTURE URINEon 12-31-2021 CULTURE URINE Culture Observations : MODERATE GROWTH OF MIXED SKIN MITA. NO POTENTIAL PATHOGENS SEEN. Normal [facility] Comment on above: Performed By: #### U RCX ####[facility] [address] [address]Dr. Kulwant Brennan Covid-19 PCR (CVDTB)on 12-21 SARS-CoV-2 (COVID-19) RNA MIKE+probe Ql (Unsp spec) Not detected Normal NOT DETECTED [facility] Comment on above: Result Comment: When diagnostic [...] for this test is supported by the [place] of Health and Human Service's declaration that [...] be used). Performed By: #### C FLETCHER ####[facility] [address] [address]Dr. Kulwant Brennan ER URINE PROFILEon 2 Bilirubin Ql (U) MODERATE Abnormal NEGATIVE [facility] Comment on above: Performed By: #### MICHELLE VARELARO ####[facility] [address] [address]Dr. Kulwant Brennan Clarity (U) CLEAR Normal CLEAR [facility] Comment on above: Performed By: #### MICHELLE VARELARO ####[facility] [address] [place], [place] [address]Dr. Kulwant Brennan Color (U) DK. ORANGE Abnormal YELLOW [facility] Comment on above: Performed By: #### MICHELLE VARELARO ####[facility] [address] [place], [place] [address]Dr. Kulwant Brennan ERUAHD A micrscopic examina tion will be performed if indicated. Normal [facility] Comment on above: Performed By: #### MICHELLE VARELARO ####[facility] [address] [place], [place] [address]Dr. Kulwant Brennan Glucose Ql (U) Negative Normal NEGATIVE [facility] Comment on above: Performed By: #### MICHELLE VARELARO ####[facility] [address] [place], [place] [address]Dr. Kulwant Brennan Hemoglobin Ql (U) SMALL Abnormal NEGATIVE [facility] Comment on above: Performed By: #### MICHELLE VARELARO ####[facility] [address] [place], [place] [address]Dr. Kulwant Brennan Ketones Ql (U) Negative Normal NEGATIVE [facility] Comment on above: Performed By: #### ANA LAURA VARELA ####[facility] [address] [place], [place] [address]Dr. Yilan Brennan LEUKOCYTES Negative Normal NEGATIVE [facility] Comment on above: Performed By: #### SERGEY VARELAICRO ####[facility] [address] [address]Dr. Kulwant Brennan Nitrite Ql (U) Positive Abnormal NEGATIVE [facility] Comment on above: Performed By: #### Lilly JHAVERI UMICRO ####[facility] [address] [address]Dr. Kulwant Brennan pH (U) 5.5 [pH] Normal 5-9 [facility] Comment on above: Performed By: #### SERGEY VARELAICRO ####[facility] [address] [address]Dr. Kulwant Brennan Protein (U) [Mass/Vol] 100 mg/dL Abnormal NEGATIVE/ TRACE [facility] Comment on above: Performed By: #### SERGEY VARELAICRO ####[facility] [address] [place], [place] [address]Dr. Alanaselvin Brennan SPEC GRAVITY 1.020 Normal 1.005-<=1. 025 [facility] Comment on above: Performed By: #### SERGEY VARELAICRO ####[facility] [address] [place], [place] [address]Dr. Kulwant Mika UR MICRO IND INDICATED Normal [facility] Comment on above: Performed By: #### SERGEY VARELAICRO ####[facility] [address] [address]Dr. Alanaselvin Brennan Urobilinogen Qn (U) 1.0 {Luis'U}/dL Normal 0.2 - 1. 0 [facility] Comment on above: Performed By: #### SERGEY VARELAICRO ####[facility] [address] [address]Dr. Kulwant Brennan LACTATE/LACTIC ACIDon 2021 Lactate [Moles/Vol] 1.6 mmol/L Normal 0.4-1.9 [facility] Comment on above: Performed By: #### L ACT #### [facility] [address] [address] [address] Kulwant Brennan Lactate [Moles/Vol] 2.4 mmol/L Critically high 0.4-1.9 [facility] Comment on above: Performed By: #### L ACT ####[facility] [address] [address]Dr. Kulwant Brennan LIPASEon 12-31-2021 Lipase [Catalytic activity/Vol] 6610.0 U/L Critically high 73.0-393.0 [facility] Comment on above: Performed By: #### L ACT #### [facility] [address] [address] [address] Kulwant Brennan PROF 14(COMP METB)on 022 Albumin [Mass/Vol] 3.3 g/dL Critically low 3.4-5.0 [facility] Comment on above: Performed By: #### L ACT #### [facility] [address] [place] [address] Dr. Kulwant Brennan Albumin/Globulin [Mass ratio] 0.9 {ratio} Normal [facility] Comment on above: Performed By: #### L ACT #### [facility] [address] [address] [address] Kulwant Brennan ALP [Catalytic activity/Vol] 124 U/L Critically high 46-116 [facility] Comment on above: Performed By: #### L ACT #### [facility] [address] [place] [address] Dr. Kulwant Brennan ALT [Catalytic activity/Vol] 327 U/L Critically high 16-63 [facility] Comment on above: Performed By: #### L ACT #### [facility] [address] [address] [address] Kulwant Brennan Anion gap [Moles/Vol] 15.6 mmol/L Normal [facility] Comment on above: Performed By: #### L ACT #### [facility] [address] [place], [place] [id number] Dr. Kulwant Brennan AST [Catalytic activity/Vol] 229 U/L Critically high 15-37 [facility] Comment on above: Performed By: #### L ACT #### [facility] [address] [address] [address] Kulwant Brennan Bilirubin [Mass/Vol] 6.2 mg/dL Critically high 0.2-1.0 [facility] Comment on above: Performed By: #### L ACT #### [facility] [address] [address] [address] Kulwant Brennan Calcium [Mass/Vol] 7.2 mg/dL Critically low 8.5-10.1 [facility] Comment on above: Performed By: #### L ACT #### [facility] [address] [address] [address] Kulwant Brennan Chloride [Moles/Vol] 102 mmol/L Normal 98-107 [facility] Comment on above: Performed By: #### L ACT #### [facility] [address] [address] [address] Kulwant Brennan CO2 [Moles/Vol] 26.4 mmol/L Normal 21.0-32.0 [facility] Comment on above: Performed By: #### L ACT #### [facility] [address] [address] [address] Kulwant Brennan Creatinine [Mass/Vol] 3.33 mg/dL Critically high 0.70-1.30 [facility] Comment on above: Performed By: #### L ACT #### [facility] [address] [address] [address] Kulwant Brennan EGFR-AF LITHUANIAN 22 mL/min/1.73m2 Critically low >=60 [facility] Comment on above: Performed By: #### L ACT #### [facility] [address] [address] [address] Kulwant Brennan EGFR-NON AF LITHUANIAN 19 mL/min/1.73m2 Critically low >=60 [facility] Comment on above: Performed By: #### L ACT #### [facility] [address] [address] [address] Kulwant Brennan Globulin (S) [Mass/Vol] 3.8 g/dL Normal [facility] Comment on above: Performed By: #### L ACT #### [facility] [address] [address] [address] Kulwant Brennan Glucose [Mass/Vol] 245 mg/dL Critically high 74-106 [facility] Comment on above: Performed By: #### L ACT #### [facility] [address] [address] [address] Kulwant Brennan Potassium [Moles/Vol] 5.0 mmol/L Normal 3.5-5.1 [facility] Comment on above: Performed By: #### L ACT #### [facility] [address] [address] [address] Kulwant Brennan Protein [Mass/Vol] 7.1 g/dL Normal 6.4-8.2 [facility] Comment on above: Performed By: #### L ACT #### [facility] [address] [address] [address] Kulwant Brennan Sodium [Moles/Vol] 139 mmol/L Normal 136-145 [facility] Comment on above: Performed By: #### L ACT #### [facility] [address] [address] [address] Kulwant Brennan Urea nitrogen [Mass/Vol] 51.0 mg/dL Critically high 7.0-18.0 [facility] Comment on above: Performed By: #### L ACT #### [facility] [address] [address] [address] Kulwant Brennan Urea nitrogen/Creatinine [Mass ratio] 15.3 mg/mg Normal [facility] Comment on above: Performed By: #### L ACT #### [facility] [address] [address] [address] Kulwant Brennan PROTIMEon 12-31-2021 INR Coag (PPP) [Relative time] 1.17 {INR} Normal [facility] Comment on above: Performed By: #### H STROPN #### [facility] [address] [address] [address] Kulwant Brennan INR GUIDELINES SEE BELOW Normal [facility] Comment on above: Result Comment: HAYDEE RED INR: 2.0 - 3.0 CONDITIONS NOT LISTED BELOW 2.5 - 3.5 FOR PROSTHETIC HEART VALVE REPLACEMENT 2.5 - 3.5 RECURRENT THROMBOSIS Performed By: #### H STROPN #### [facility] [address] [address] [address] Kulwant Brennan PT Coag (PPP) [Time] 12.5 s Critically high 9.0-11.6 [facility] Comment on above: Performed By: #### H STROPN #### [facility] [address] [address] [address] Kulwant Brennan PTTon 12-31-2021 aPTT Coag (Bld) [Time] 33.3 s Normal 22.3-36.2 [facility] Comment on above: Performed By: #### P TT, PT ####[facility] [address] [place], [place] [address]Dr. Kulwant Brennan TROPONIN, HIGH SENSITIVITYon 12-31-2021 HSTROP 6.0 pg/mL Normal 4.0-76.1 [facility] Comment on above: Result Comment: CUT- OFF POINTS HAVE BEEN ESTABLISHED BASED ON THE FOURTH UNIVERSAL DEFINITIONS OF MYOCARDIAL INFARCTION. THE UPPER REFERENCE LIMIT (URL) OF TROPONIN, DEFINED THE 99TH PERCENTILE OF cTnI DISTRIBUTION IN A REFERENCE POPULATION, HAS BEEN CONFIRMED THE DECISION THRESHOLD FOR CT DIAGNOSIS. Performed By: #### L ACT #### [facility] [address] [place] [address] Dr. Kuwlant Brennan URINE MICROSCOPIC ONLYon BACTERIA SMALL Abnormal NONE SEEN [facility] Comment on above: Performed By: #### ANA LAURA VARELA ####[facility] [address] [address]DrAmarjit Brennan Bacteria identified Cx Nom (U) INDICATED Normal [facility] Comment on above: Performed By: #### ANA LAURA VARELA ####[facility] [address] [address]DrAmarjit Brennan CAST SEEN Abnormal NONE SEEN [facility] Comment on above: Performed By: #### MICHELLE VARELARO ####[facility] [address] [address]DrAmarjit Brennan COARSE GRANULAR CAST FEW Normal [facility] Comment on above: Performed By: #### E RUR, UMICRO ####[facility] [address] [address]Dr. Kulwant Brennan Crystals LM Nom (Urine sed) NONE SEEN Normal NONE SEEN [facility] Comment on above: Performed By: #### E RUR, UMICRO ####[facility] [address] [id number]. Kulwant Brennan Epithelial cells LM Ql (Urine sed) FEW Abnormal NONE SEEN /RARE [facility] Comment on above: Performed By: #### E RUR, UMICRO ####[facility] [address] [address]Dr. Kulwant Brennan MUCOUS TRACE Abnormal NONE SEEN [facility] Comment on above: Performed By: #### E BISHOPR, UMICRO ####[facility] [address] [address]Dr. Kulwant Brennan RBC 5-10 Abnormal 0-2 [facility] Comment on above: Performed By: #### E BISHOPR, UMICRO ####[facility] [address] [id number]. Kulwant Brennan WBC 0-2 Abnormal NONE SEEN [facility] Comment on above: Performed By: #### E RUR, UMICRO ####[facility] [address] [id number]. Alanaselvin Brennan US SINGLE QUAD RT UPPERon US [...] DAVIE NARANJO Date: 2021-12-31 19:27 Normal [facility] AMYLASEon 12-30-2021 Amylase [Catalytic activity/Vol] 47 U/L Normal 25-115 [facility] Comment on above: Performed By: #### H STROPN #### [facility] [address] [place] [address] Dr. Kulwant Brennan CBC AUTO DIFFon 12-30-2021 BASO # 0.0 103/ul Normal 0.0-0.1 [facility] Comment on above: Performed By: #### L ACT #### [facility] [address] [place] [address] Dr. Kulwant Brennan Basophils/100 WBC (Bld) 0.5 % Normal 0.2-2.0 [facility] Comment on above: Performed By: #### L ACT #### [facility] [address] [place] [address] Dr. Kulwant Brennan EO # 0.3 103/ul Normal 0.0-0.7 [facility] Comment on above: Performed By: #### L ACT #### [facility] [address] [place] [address] Dr. Kulwant Brennan Eosinophils/100 WBC (Bld) 3.3 % Normal 0.9-7.0 [facility] Comment on above: Performed By: #### L ACT #### [facility] [address] [place] [address] Dr. Kulwant Brennan Erythrocyte distribution width (RBC) [Ratio] 14.1 % Normal 11.0-15.0 [facility] Comment on above: Performed By: #### L ACT #### [facility] [address] [place] [address] Dr. Kulwant Brennan Hematocrit (Bld) [Volume fraction] 38.8 % Critically low 42.0-54.0 [facility] Comment on above: Performed By: #### L ACT #### [facility] [address] [place] [address] Dr. Kulwant Brennan Hemoglobin (Bld) [Mass/Vol] 12.4 g/dL Critically low 14.0-18.0 [facility] Comment on above: Performed By: #### L ACT #### [facility] [address] [place] [address] Dr. Kulwant Brennan IG # 0.04 10e3/ul Critically high 0.00-0.03 [facility] Comment on above: Performed By: #### L ACT #### [facility] [address] [place] [address] Dr. Kulwant Brennan IG % 0.5 % Normal 0.0-0.5 [facility] Comment on above: Performed By: #### L ACT #### [facility] [address] [place] [address] Dr. Kulwant Brennan LYMPH # 1.9 103/ul Normal 1.2-3.8 [facility] Comment on above: Performed By: #### L ACT #### [facility] [address] [place] [address] Dr. Kulwant Brennan Lymphocytes/100 WBC (Bld) 23.9 % Normal 20.5-60.0 [facility] Comment on above: Performed By: #### L ACT #### [facility] [address] [place] [address] Dr. Kulwant Brennan MANUAL DIFF REQ NO Normal [facility] Comment on above: Performed By: #### L ACT #### [facility] [address] [place] [address] Dr. Kulwant Brennan MCH (RBC) [Entitic mass] 27.5 pg Normal 25.9-34.0 [facility] Comment on above: Performed By: #### L ACT #### [facility] [address] [place] [address] Dr. Kulwant Brennan MCHC (RBC) [Mass/Vol] 32.0 g/dL Normal 29.9-35.2 [facility] Comment on above: Performed By: #### L ACT #### [facility] [address] [place] [address] Dr. Kulwant Brennan MCV (RBC) [Entitic vol] 86.0 fL Normal 80.0-94.0 [facility] Comment on above: Performed By: #### L ACT #### [facility] [address] [place] [address] Dr. Kulwant Brennan MONO # 0.9 103/ul Critically high 0.3-0.8 [facility] Comment on above: Performed By: #### L ACT #### [facility] [address] [place] [address] Dr. Kulwant Brennan Monocytes/100 WBC (Bld) 11.8 % Normal 1.7-12.0 [facility] Comment on above: Performed By: #### L ACT #### [facility] [address] [place] [address] Dr. Kulwant Brennan NEUT # 4.7 103/ul Normal 1.4-6.5 [facility] Comment on above: Performed By: #### L ACT #### [facility] [address] [place] [address] Dr. Kulwant Brennan Neutrophils/100 WBC (Bld) 60.0 % Normal 43.0-75.0 [facility] Comment on above: Performed By: #### L ACT #### [facility] [address] [place] [address] Dr. Kulwant Brennan Platelet mean volume (Bld) [Entitic vol] 10.0 fL Normal 9.5-13.5 [facility] Comment on above: Performed By: #### L ACT #### [facility] [address] [place] [address] Dr. Kulwant Brennan PLT 222 103/ul Normal 150-450 [facility] Comment on above: Performed By: #### L ACT #### [facility] [address] [place], [place] [address] Dr. Kulwant Brennan RBC 4.51 106/ul Critically low 4.70-6.10 [facility] Comment on above: Performed By: #### L ACT #### [facility] [address] [place], [place] [address] Dr. Kulwant Brennan WBC 7.9 103/ul Normal 4.0-11.0 [facility] Comment on above: Performed By: #### L ACT #### [facility] [address] [place], [place] [address] ABD/PELV W CONon 12-31-19 CT ABD/PELV W CON EXAMINATION: CT ABD/ PELV W CON HISTORY: UNSPECIFIED ABDOMINAL PAIN COMPARISON: 12/29/2021. TECHNIQUE: CT of abdomen/pelvis with intravenous contrast. Dose reduction techniques were achieved by using automated exposure control and/or adjustment of mA and/or kV according to patient size and/or use of iterative reconstruction technique. FINDINGS: Security Project Manager: No pertinent findings, which are not [...] ALIYA NEFF Date: 2021-12-30 21:29 Normal [facility] ER URINE PROFILEon 2 Bilirubin Ql (U) Negative Normal NEGATIVE [facility] Comment on above: Performed By: #### L ACT #### [facility] [address] [place] [address] Dr. Kulwant Brennan Clarity (U) CLEAR Normal CLEAR [facility] Comment on above: Performed By: #### L ACT #### [facility] [address] [place] [address] [address] Kulwant Brennan Color (U) LT. YELLOW Normal YELLOW [facility] Comment on above: Performed By: #### L ACT #### [facility] [address] [place] [address] [address] Kulwant Brennan ERUSOPHIAD A micrscopic examina tion will be performed if indicated. Normal [facility] Comment on above: Performed By: #### L ACT #### [facility] [address] [place] [address] [address] Kulwant Brennan Glucose Ql (U) Negative Normal NEGATIVE [facility] Comment on above: Performed By: #### L ACT #### [facility] [address] [place] [address] [address] Kulwant Brennan Hemoglobin Ql (U) Negative Normal NEGATIVE [facility] Comment on above: Performed By: #### L ACT #### [facility] [address] [place] [address] [address] Kulwant Brennan Ketones Ql (U) Negative Normal NEGATIVE [facility] Comment on above: Performed By: #### L ACT #### [facility] [address] [place] [address] Dr. Kulwant Brennan LEUKOCYTES Negative Normal NEGATIVE [facility] Comment on above: Performed By: #### L ACT #### [facility] [address] [place] [address] [address] Kulwant Brennan Nitrite Ql (U) Negative Normal NEGATIVE [facility] Comment on above: Performed By: #### L ACT #### [facility] [address] [place] [address] Dr. Kulwant Brennan pH (U) 5.5 [pH] Normal 5-9 [facility] Comment on above: Performed By: #### L ACT #### [facility] [address] [place] [address] Dr. Kulwant Brennan SPEC GRAVITY >=1.030 Abnormal 1.005-<=1. 025 [facility] Comment on above: Performed By: #### L ACT #### [facility] [address] [place] [address] Dr. Kulwant Brennan UA PROTEIN Negative Normal NEGATIVE/ TRACE [facility] Comment on above: Performed By: #### L ACT #### [facility] [address] [place] [address] Dr. Kulwant Brennan UR MICRO IND NOT INDICATED Normal [facility] Comment on above: Performed By: #### L ACT #### [facility] [address] [place] [address] Dr. Kulwant Brennan Urobilinogen Qn (U) 0.2 {Luis'U}/dL Normal 0.2 - 1. 0 [facility] Comment on above: Performed By: #### L ACT #### [facility] [address] [place] [address] Dr. Kulwant Brennan LIPASEon 12-30-2021 Lipase [Catalytic activity/Vol] 105.0 U/L Normal 73.0-393.0 [facility] Comment on above: Performed By: #### H STROPN #### [facility] [address] [place] [address] Dr. Kulwant Brennan LIVER PROFILEon 12-30-2021 Albumin [Mass/Vol] 3.8 g/dL Normal 3.4-5.0 [facility] Comment on above: Performed By: #### H STROPN #### [facility] [address] [place] [address] [address] Kulwant Brennan Albumin/Globulin [Mass ratio] 1.0 {ratio} Normal [facility] Comment on above: Performed By: #### H STROPN #### [facility] [address] [place] [address] [address] Kulwant Brennan ALP [Catalytic activity/Vol] 67 U/L Normal 46-116 [facility] Comment on above: Performed By: #### H STROPN #### [facility] [address] [place] [address] [address] Kulwant Brennan ALT [Catalytic activity/Vol] 31 U/L Normal 16-63 [facility] Comment on above: Performed By: #### H STROPN #### [facility] [address] [place] [address] [address] Kulwant Brennan AST [Catalytic activity/Vol] 21 U/L Normal 15-37 [facility] Comment on above: Performed By: #### H STROPN #### [facility] [address] [place] [address] [address] Kulwant Brennan BILI, CONJUGATED 0.1 mg/dL Normal 0.0-0.2 [facility] Comment on above: Performed By: #### H STROPN #### [facility] [address] [place] [address] [address] Kulwant Brennan Bilirubin [Mass/Vol] 0.5 mg/dL Normal 0.2-1.0 [facility] Comment on above: Performed By: #### H STROPN #### [facility] [address] [place] [address] [address] Kulwant Brennan Globulin (S) [Mass/Vol] 3.7 g/dL Normal [facility] Comment on above: Performed By: #### H STROPN #### [facility] [address] [place] [address] [address] Kulwant Brennan Protein [Mass/Vol] 7.5 g/dL Normal 6.4-8.2 [facility] Comment on above: Performed By: #### H STROPN #### [facility] [address] [place] [address] [address] Kulwant Brennan PROF CHEM 8 (BAS METB)on Anion gap [Moles/Vol] 14.5 mmol/L Normal [facility] Comment on above: Performed By: #### H STROPN #### [facility] [address] [place] [address] [address] Kulwant Brennan Calcium [Mass/Vol] 7.5 mg/dL Critically low 8.5-10.1 [facility] Comment on above: Performed By: #### H STROPN #### [facility] [address] [place] [address] Dr. Kulwant Brennan Chloride [Moles/Vol] 104 mmol/L Normal 98-107 [facility] Comment on above: Performed By: #### H STROPN #### [facility] [address] [place] [address] Dr. Kulwant Brennan CO2 [Moles/Vol] 26.8 mmol/L Normal 21.0-32.0 [facility] Comment on above: Performed By: #### H STROPN #### [facility] [address] [place] [address] Dr. Kulwant Brennan Creatinine [Mass/Vol] 1.31 mg/dL Critically high 0.70-1.30 [facility] Comment on above: Performed By: #### H STROPN #### [facility] [address] [place] [address] Dr. Kulwant Brennan EGFR-AF LITHUANIAN >60 Normal >=60 [facility] Comment on above: Performed By: #### H STROPN #### [facility] [address] [place] [address] [address] Kulwant Brennan EGFR-NON AF LITHUANIAN 54 mL/min/1.73m2 Critically low >=60 [facility] Comment on above: Performed By: #### H STROPN #### [facility] [address] [place] [address] Dr. Kulwant Brennan Glucose [Mass/Vol] 97 mg/dL Normal 74-106 [facility] Comment on above: Performed By: #### H STROPN #### [facility] [address] [place] [address] [address] Kulwant Brennan Potassium [Moles/Vol] 4.3 mmol/L Normal 3.5-5.1 [facility] Comment on above: Performed By: #### H STROPN #### [facility] [address] [place] [address] [address] Kulwant Brennan Sodium [Moles/Vol] 141 mmol/L Normal 136-145 [facility] Comment on above: Performed By: #### H STROPN #### [facility] [address] [place] [address] [address] Kulwant Brennan Urea nitrogen [Mass/Vol] 25.0 mg/dL Critically high 7.0-18.0 [facility] Comment on above: Performed By: #### H STROPN #### [facility] [address] [place] [address] Dr. Kulwant Brennan Urea nitrogen/Creatinine [Mass ratio] 19.1 mg/mg Normal [facility] Comment on above: Performed By: #### H STROPN #### [facility] [address] [place] [address] Dr. Kulwant Brennan CBC AUTO DIFFon 12-29-2021 BASO # 0.0 103/ul Normal 0.0-0.1 [facility] Comment on above: Performed By: #### H STROPN #### [facility] [address] [place] [address] [address] Kulwant Brennan Basophils/100 WBC (Bld) 0.5 % Normal 0.2-2.0 [facility] Comment on above: Performed By: #### H STROPN #### [facility] [address] [place] [address] Dr. Kulwant Brennan EO # 0.3 103/ul Normal 0.0-0.7 [facility] Comment on above: Performed By: #### H STROPN #### [facility] [address] [place] [address] Dr. Kulwant Brennan Eosinophils/100 WBC (Bld) 3.6 % Normal 0.9-7.0 [facility] Comment on above: Performed By: #### H STROPN #### [facility] [address] [place] [address] Dr. Kulwant Brennan Erythrocyte distribution width (RBC) [Ratio] 14.1 % Normal 11.0-15.0 [facility] Comment on above: Performed By: #### H STROPN #### [facility] [address] [place] [address] Dr. Kulwant Brennan Hematocrit (Bld) [Volume fraction] 39.0 % Critically low 42.0-54.0 [facility] Comment on above: Performed By: #### H STROPN #### [facility] [address] [place] [address] Dr. Kulwant Brennan Hemoglobin (Bld) [Mass/Vol] 12.5 g/dL Critically low 14.0-18.0 [facility] Comment on above: Performed By: #### H STROPN #### [facility] [address] [place] [address] Dr. Kulwant Brennan IG # 0.03 10e3/ul Normal 0.00-0.03 [facility] Comment on above: Performed By: #### H STROPN #### [facility] [address] [place] [address] Dr. Kulwant Brennan IG % 0.4 % Normal 0.0-0.5 [facility] Comment on above: Performed By: #### H STROPN #### [facility] [address] [place] [address] Dr. Kulwant Brennan LYMPH # 2.0 103/ul Normal 1.2-3.8 [facility] Comment on above: Performed By: #### H STROPN #### [facility] [address] [place] [address] Dr. Kulwant rBennan Lymphocytes/100 WBC (Bld) 28.0 % Normal 20.5-60.0 [facility] Comment on above: Performed By: #### H STROPN #### [facility] [address] [place] [address] Dr. Kulwant Brennan MANUAL DIFF REQ NO Normal [facility] Comment on above: Performed By: #### H STROPN #### [facility] [address] [place] [address] [address] Kulwant Brennan MCH (RBC) [Entitic mass] 27.5 pg Normal 25.9-34.0 [facility] Comment on above: Performed By: #### H STROPN #### [facility] [address] [place] [address] Dr. Kulwant Brennan MCHC (RBC) [Mass/Vol] 32.1 g/dL Normal 29.9-35.2 [facility] Comment on above: Performed By: #### H STROPN #### [facility] [address] [place] [address] Dr. Kulwant Brennan MCV (RBC) [Entitic vol] 85.7 fL Normal 80.0-94.0 [facility] Comment on above: Performed By: #### H STROPN #### [facility] [address] [place] [address] Dr. Kulwant Brennan MONO # 1.0 103/ul Critically high 0.3-0.8 [facility] Comment on above: Performed By: #### H STROPN #### [facility] [address] [place] [address] Dr. Kulwant Brennan Monocytes/100 WBC (Bld) 14.0 % Critically high 1.7-12.0 [facility] Comment on above: Performed By: #### H STROPN #### [facility] [address] [place] [address] Dr. Kulwant Brennan NEUT # 3.9 103/ul Normal 1.4-6.5 [facility] Comment on above: Performed By: #### H STROPN #### [facility] [address] [place] [address] Dr. Kulwant Brennan Neutrophils/100 WBC (Bld) 53.5 % Normal 43.0-75.0 [facility] Comment on above: Performed By: #### H STROPN #### [facility] [address] [place] [address] Dr. Kulwant Brennan Platelet mean volume (Bld) [Entitic vol] 10.1 fL Normal 9.5-13.5 [facility] Comment on above: Performed By: #### H STROPN #### [facility] [address] [place], [place] [address] Dr. Kulawnt Brennan PLT 237 103/ul Normal 150-450 [facility] Comment on above: Performed By: #### H STROPN #### [facility] [address] [place] [address] [address] Kulwant Brennan RBC 4.55 106/ul Critically low 4.70-6.10 [facility] Comment on above: Performed By: #### H STROPN #### [facility] [address] [place] [id number] [address] Kulwant Brennan WBC 7.3 103/ul Normal 4.0-11.0 [facility] Comment on above: Performed By: #### H STROPN #### [facility] [address] [place] [address] ABD/PELVIS WO CONon [...] AMOS RAMIREZ Date: 2021-12-29 00:59 Normal [facility] PROF 14(COMP METB)on 022 Albumin [Mass/Vol] 4.0 g/dL Normal 3.4-5.0 [facility] Comment on above: Performed By: #### H STROPN #### [facility] [address] [place] [address] [address] Kulwant Brennan Albumin/Globulin [Mass ratio] 1.1 {ratio} Normal [facility] Comment on above: Performed By: #### H STROPN #### [facility] [address] [place] [address] [address] Kulwant Brennan ALP [Catalytic activity/Vol] 68 U/L Normal 46-116 [facility] Comment on above: Performed By: #### H STROPN #### [facility] [address] [place] [address] [address] Kulwant Brennan ALT [Catalytic activity/Vol] 27 U/L Normal 16-63 [facility] Comment on above: Performed By: #### H STROPN #### [facility] [address] [place] [address] [address] Kulwant Brennan Anion gap [Moles/Vol] 12.8 mmol/L Normal [facility] Comment on above: Performed By: #### H STROPN #### [facility] [address] [place] [address] [address] Kulwant Brennan AST [Catalytic activity/Vol] 16 U/L Normal 15-37 [facility] Comment on above: Performed By: #### H STROPN #### [facility] [address] [place] [address] [address] Kulwant Brennan Bilirubin [Mass/Vol] 0.5 mg/dL Normal 0.2-1.0 [facility] Comment on above: Performed By: #### H STROPN #### [facility] [address] [place] [address] [address] Kulwant Brennan Calcium [Mass/Vol] 7.4 mg/dL Critically low 8.5-10.1 [facility] Comment on above: Performed By: #### H STROPN #### [facility] [address] [place] [address] [address] Kulwant Brennan Chloride [Moles/Vol] 102 mmol/L Normal 98-107 [facility] Comment on above: Performed By: #### H STROPN #### [facility] [address] [place] [address] [address] Kulwant Brennan CO2 [Moles/Vol] 27.1 mmol/L Normal 21.0-32.0 [facility] Comment on above: Performed By: #### H STROPN #### [facility] [address] [place] [address] [address] Kulwant Brennan Creatinine [Mass/Vol] 1.42 mg/dL Critically high 0.70-1.30 [facility] Comment on above: Performed By: #### H STROPN #### [facility] [address] [place] [address] [address] Kulwant Brennan EGFR-AF LITHUANIAN 60 mL/min/1.73m2 Normal >=60 [facility] Comment on above: Performed By: #### H STROPN #### [facility] [address] [place] [address] [address] Kulwant Brennan EGFR-NON AF LITHUANIAN 50 mL/min/1.73m2 Critically low >=60 [facility] Comment on above: Performed By: #### H STROPN #### [facility] [address] [place] [address] [address] Kulwant Brennan Globulin (S) [Mass/Vol] 3.5 g/dL Normal [facility] Comment on above: Performed By: #### H STROPN #### [facility] [address] [place] [address] [address] Kulwant Brennan Glucose [Mass/Vol] 139 mg/dL Critically high 74-106 [facility] Comment on above: Performed By: #### H STROPN #### [facility] [address] [place] [address] [address] Kulwant Brennan Potassium [Moles/Vol] 3.9 mmol/L Normal 3.5-5.1 [facility] Comment on above: Performed By: #### H STROPN #### [facility] [address] [place] [address] [address] Kulwant Brennan Protein [Mass/Vol] 7.5 g/dL Normal 6.4-8.2 [facility] Comment on above: Performed By: #### H STROPN #### [facility] [address] [place] [address] [address] Kulwant Brennan Sodium [Moles/Vol] 138 mmol/L Normal 136-145 [facility] Comment on above: Performed By: #### H STROPN #### [facility] [address] [place] [address] [address] Kulwant Brennan Urea nitrogen [Mass/Vol] 27.0 mg/dL Critically high 7.0-18.0 [facility] Comment on above: Performed By: #### H STROPN #### [facility] [address] [place] [address] [address] Kulwant Brennan Urea nitrogen/Creatinine [Mass ratio] 19.0 mg/mg Normal [facility] Comment on above: Performed By: #### H STROPN #### [facility] [address] [place] [address] [address] Kulwant Brennan APTTon 12-13-2021 aPTT Coag (Bld) [Time] 32.8 s Normal 25.0-35.0 [facility] Comment on above: Order Comment: No: [...] THIS PURPOSE. Performed By: #### 5 6100, [id number] #### [facility] [address] CBC COMPLETE BLOOD COUNTon 0 - Erythrocyte distribution width (RBC) [Ratio] 14.0 % Normal 11.5-15.0 [facility] Comment on above: Order Comment: No: D o not add to previous draw Performed By: #### 5 6100, [id number] #### [facility] [address] Hematocrit (Bld) [Volume fraction] 36.7 % Low 39.0-50.0 [facility] Comment on above: Order Comment: No: D o not add to previous draw Performed By: #### 5 6100, 59111 #### [facility] [address] [place] [address], [facility] Hemoglobin (Bld) [Mass/Vol] 12.0 g/dL Low 13.0-17.0 [facility] Comment on above: Order Comment: No: D o not add to previous draw Performed By: #### 5 6100, [id number] #### [facility] [address] [place] [address], [facility] MCH (RBC) [Entitic mass] 27.5 pg Normal 27.0-33.0 [facility] Comment on above: Order Comment: No: D o not add to previous draw Performed By: #### 5 6100, 02000 #### [facility] [address] [place] [address], [facility] MCHC (RBC) [Mass/Vol] 32.7 g/dL Normal 32.0-35.0 [facility] Comment on above: Order Comment: No: D o not add to previous draw Performed By: #### 5 610, 77945 #### [facility] [address] [place] [address], [facility] MCV (RBC) [Entitic vol] 84.0 fL Normal 82.0-98.0 [facility] Comment on above: Order Comment: No: D o not add to previous draw Performed By: #### 5 610, 76425 #### [facility] [address] [place] [address], [facility] Nucleated RBC/100 WBC (Bld) [Ratio] 0 % Normal 0-0 [facility] Comment on above: Order Comment: No: D o not add to previous draw Performed By: #### 5 6100, [id number] #### [facility] [address] [place] [address], [place] PLAT CNT 166 10*3/uL Normal 150-400 [facility] Comment on above: Order Comment: No: D o not add to previous draw Performed By: #### 5 6100, [id number] #### [facility] [address] [facility] [place] [address], [facility] RBC (Bld) [#/Vol] 4.37 10*6/uL Normal 4.20-5.70 [facility] Comment on above: Order Comment: No: D o not add to previous draw Performed By: #### 5 610, 79581 #### [facility] [address] [place] [address], [place] WBC (Bld) [#/Vol] 8.41 10*3/uL Normal 4.00-10.60 [facility] Comment on above: Order Comment: No: D o not add to previous draw Performed By: #### 5 610, 65536 #### [facility] [address] [place] [address], [place] COMP METABOLIC PANELon 08-24 -2022 Albumin [Mass/Vol] 3.8 g/dL Normal 3.5-5.7 [facility] Comment on above: Order Comment: No: D o not add to previous draw Performed By: #### 5 610, 69692 #### [facility] [address] [place] [address], [place] ALKALINE PHOSPH 52 IU/L Normal 34-104 [facility] Comment on above: Order Comment: No: D o not add to previous draw Performed By: #### 5 610, 59914 #### [facility] [address] [place] [address], [place] ALT [Catalytic activity/Vol] 16 U/L Normal 7-52 [facility] Comment on above: Order Comment: No: D o not add to previous draw Performed By: #### 5 610, 92042 #### [facility] [address] [place] [address], [place] AST [Catalytic activity/Vol] 15 U/L Normal 13-39 [facility] Comment on above: Order Comment: No: D o not add to previous draw Performed By: #### 5 610, 76350 #### [facility] [address] [place] [address], [place] Bilirubin [Mass/Vol] 0.9 mg/dL Normal 0.3-1.0 [facility] Comment on above: Order Comment: No: D o not add to previous draw Performed By: #### 5 610, 58544 #### [facility] [address] [place] [address], [place] Calcium [Mass/Vol] 7.0 mg/dL Low 8.6-10.3 [facility] Comment on above: Order Comment: No: D o not add to previous draw Performed By: #### 5 610, 29843 #### [facility] [address] [place] [address], [place] Chloride [Moles/Vol] 106 mmol/L Normal 98-107 [facility] Comment on above: Order Comment: No: D o not add to previous draw Performed By: #### 5 610, [id number] #### [facility] [address] [place] [address], [place] CO2 [Moles/Vol] 27 mmol/L Normal 21-31 [facility] Comment on above: Order Comment: No: D o not add to previous draw Performed By: #### 5 610, 96818 #### [facility] [address] [place] [address], [facility] Creatinine [Mass/Vol] 1.16 mg/dL Normal 0.70-1.30 [facility] Comment on above: Order Comment: No: D o not add to previous draw Performed By: #### 5 610, 07756 #### [facility] [address] [place] [address], [facility] GFR/1.73 sq M.predicted among non-blacks MDRD (S/P/Bld) [Vol rate/Area] mL/min/{1.73_m2} Normal >60 [facility] Comment on above: Order Comment: No: D o not add to previous draw Result Comment: [facility]'s estimated glomerular filtration rate (eGFR) will [...] of individuals. Performed By: #### 5 6101, [id number] #### [facility] [address] [place] [address], [place] Glucose [Mass/Vol] 104 mg/dL High 70-100 [facility] Comment on above: Order Comment: No: D o not add to previous draw Performed By: #### 5 6101, [id number] #### [facility] [address] [place] [address], [place] Potassium [Moles/Vol] 4.3 mmol/L Normal 3.5-5.1 [facility] Comment on above: Order Comment: No: D o not add to previous draw Performed By: #### 5 6101, [id number] #### [facility] [address] [place] [address], [place] Protein [Mass/Vol] 6.2 g/dL Normal 6.0-8.3 [facility] Comment on above: Order Comment: No: D o not add to previous draw Performed By: #### 5 6101, 28101 #### [facility] [address] [place] [address], [place] Sodium [Moles/Vol] 138 mmol/L Normal 136-145 [facility] Comment on above: Order Comment: No: D o not add to previous draw Performed By: #### 5 6101, 55761 #### [facility] [address] [place] [address], [place] Urea nitrogen [Mass/Vol] 26 mg/dL High 7-25 [facility] Comment on above: Order Comment: No: D o not add to previous draw Performed By: #### 5 6101, [id number] #### [facility] [address] [place] [address], [facility] Cardiovascular Lab Reporton 12-13-2021 Cardiovascular Lab Report [facility] #: [id number] Physician: Mono Montero of [facility] Service Date: 12/12/2021 Division of Birthdate: 1955 Cardiology Room #: 5CD 200629 Adult Cardiovascular Services [facility] [address] [place], [place] [address] Cardiovascular Laboratory Report INDICATION: The patient is [...] the right common femoral vein using a 6-Nicaraguan ProGlide device. METHODS: Procedure was explained to the patient with risks and benefits, he signed informed consent. He was brought to cath laboratory technician in a fasting state. The procedure [...] the right common femoral vein and a 6-Nicaraguan x 11 cm sheath was placed. Preclosure in the vein was performed using a 6-[place]icar[place]uan ProGlide device, a transseptal wire was advanced [...] was retracted and exchanged to the Watchman 14-Nicaraguan double curve access sheath. This was not [...] stiffer wire. This was performed using a 6-Nicaraguan multipurpose catheter, through which we advanced a Lunderquist double curve wire and the distal end was placed in the left superior pulmonary vein. This eventually allowed to advance the sheath across the interatrial septum. A 6-Nicaraguan angled pigtail catheter was advanced and used [...] the (more content not included)... Normal [facility] PROTHROMBIN TIMEon 2 INR Coag (PPP) [Relative time] 1.09 {INR} Normal 0.91-1.16 [facility] Comment on above: Order Comment: No: D o not add to previous draw Result Comment: [facility] P RECOMMENDED INR FOR WARFARIN THERAPY ------- [...] CHEST 1995;108:[id number]. Performed By: #### 5 6101, [address]00 #### [address] PT Coag (PPP) [Time] 14.1 s Normal 12.3-14.8 [facility] Comment on above: Order Comment: No: D o not add to previous draw Result Comment: ALL RESULTS MUST BE INTERPRETED WITH RESPECT TO BLOOD DRAWING ARTIFACT OR DILUTION ERROR OF ANTICOAGULANT AT THE TIME OF SAMPLING. Performed By: #### 5 6101, 40485 #### [address] TYPE AND SCREENon 12-12-2021 ABO INTERPRETATION O Normal [facility] Comment on above: Performed By: #### 6 2586 #### [address] RH INTERPRETATION Positive Normal [facility] Comment on above: Performed By: #### 6 2586 #### [facility] [address] Covid-19 PCR (CVDTB)on 11-20 SARS-CoV-2 (COVID-19) RNA MIKE+probe Ql (Unsp spec) Not detected Normal NOT DETECTED [facility] Comment on above: Result Comment: This test is not yet approved or cleared by the [place] FDA. When there are no FDA-approved or cleared tests available, and other criteria are met, FDA can make tests available under an emergency access mechanism called an Emergency Use Authorization (EUA). The EUA for this test is supported by the [place] Aide of Health and Human Service's (HHS's) declaration [...] SARS-CoV-2. Performed By: #### L ACT #### [facility] [address] [place] [address] Dr. Kulwant Brennan *MRSA/MSSA DNA NASALon 11-21 *MRSA/MSSA DNA NASAL Clinical Report: (D ) Specimen: NASAL SWAB Collected: 11/21/2021 09:15 Status: Final Last Updated: 11/21/2021 12:32 MSSA DNA (Final) Negative MRSA DNA (Final) Negative Normal [facility] Comment on above: Performed By: #### 3 1595 #### [facility] [address] [facility] [place] [address], [facility] BASIC METABOLIC PANELon 080 Calcium [Mass/Vol] 7.0 mg/dL Low 8.6-10.3 [facility] Comment on above: Performed By: #### 0 0071 #### [facility] [address] [place] [address], [facility] Chloride [Moles/Vol] 105 mmol/L Normal 98-107 [facility] Comment on above: Performed By: #### 0 0071 #### [facility] [address] [place] [address], [facility] CO2 [Moles/Vol] 25 mmol/L Normal 21-31 [facility] Comment on above: Performed By: #### 0 0071 #### [facility] [address] [place] [address], [facility] Creatinine [Mass/Vol] 1.37 mg/dL High 0.70-1.30 [facility] Comment on above: Performed By: #### 0 0071 #### [facility] [address] [facility] [address] [place] [address], [facility] EGFR 56 ml/min/1.73sq m Abnormal >60 [facility] Comment on above: Result Comment: [facility]'s estimated glomerular filtration rate (eGFR) will [...] individuals. Performed By: #### 0 0071 #### [facility] [address] [place] [address], [facility] Glucose [Mass/Vol] 100 mg/dL Normal 70-100 [facility] Comment on above: Performed By: #### 0 0071 #### [facility] [address] [address], [facility] Potassium [Moles/Vol] 4.6 mmol/L Normal 3.5-5.1 [facility] Comment on above: Performed By: #### 0 0071 #### [facility] [address] [address], [facility] Sodium [Moles/Vol] 139 mmol/L Normal 136-145 [facility] Comment on above: Performed By: #### 0 0071 #### [facility] [address] Urea nitrogen [Mass/Vol] 26 mg/dL High 7-25 [facility] Comment on above: Performed By: #### 0 0071 #### [facility] [address] [facility]. [address] CBC COMPLETE BLOOD COUNTon 0 11-21-2021 Erythrocyte distribution width (RBC) [Ratio] 14.2 % Normal 11.5-15.0 [facility] Comment on above: Performed By: #### 5 610, [id number] #### [facility] [address] [facility] [address] Hematocrit (Bld) [Volume fraction] 40.6 % Normal 39.0-50.0 [facility] Comment on above: Performed By: #### 5 6100, 54473 #### [facility] [address] [facility] [address] Hemoglobin (Bld) [Mass/Vol] 13.0 g/dL Normal 13.0-17.0 [facility] Comment on above: Performed By: #### 5 6100, 70488 #### [facility] [address] [facility]. [address] MCH (RBC) [Entitic mass] 27.0 pg Normal 27.0-33.0 [facility] Comment on above: Performed By: #### 5 6100, 95108 #### [facility] [address] [facility] [address] [facility] MCHC (RBC) [Mass/Vol] 32.0 g/dL Normal 32.0-35.0 [facility] Comment on above: Performed By: #### 5 6100, 30446 #### [facility] [address] [facility] [place] [address], [facility] MCV (RBC) [Entitic vol] 84.4 fL Normal 82.0-98.0 [facility] Comment on above: Performed By: #### 5 610, 34498 #### [facility] [address] [place] [address], [facility] Nucleated RBC/100 WBC (Bld) [Ratio] 0 % Normal 0-0 [facility] Comment on above: Performed By: #### 5 6101, 60113 #### [facility] [address] [facility] [place] [address], [facility] PLAT CNT 232 10*3/uL Normal 150-400 [facility] Comment on above: Performed By: #### 5 6101, 57100 #### [facility] [address] [place] [address], [facility] RBC (Bld) [#/Vol] 4.81 10*6/uL Normal 4.20-5.70 [facility] Comment on above: Performed By: #### 5 6101, 88596 #### [facility] [address] [place] [address], [facility] WBC (Bld) [#/Vol] 7.53 10*3/uL Normal 4.00-10.60 [facility] Comment on above: Performed By: #### 5 6101, [address] #### [address] CHEST AND LATERALon 11-22-19 CHEST AND LATERAL [facility] Department of Radiology [address] [place] [id number] Patient Name: YOLI ANTUNEZ : 1955 [...] device. Electronically signed: Danilo Bhandari. Transcribed by: [email or web address], User Resident: Electronically Signed by: DANILO BHANDARI @ 11/21/2021 11:32 AM Normal [facility] Comment on above: Order Comment: No: D o not add to previous draw Covid-19 PCR ([facility])on 10-21 SARS-CoV-2 (COVID-19) RNA MIKE+probe Ql (Unsp spec) Not detected Normal NOT DETECTED [facility] Comment on above: Result Comment: This test is not yet approved or cleared by the [place] FDA. When there are no FDA-approved or cleared tests available, and other criteria are met, FDA can make tests available under an emergency access mechanism called an Emergency Use Authorization (EUA). The EUA for this test is supported by the [place] Aide of Health and Human Service's (HHS's) declaration [...] SARS-CoV-2. Performed By: #### C [facility] ####[facility] [id number] [place], [place] [address]AoAmarjit Brennan Cardiovascular Lab Reporton 11-09-2021 Cardiovascular Lab Report [facility] MR #: [id number] Department of Physician: Lalito Joshi MD Medicine Service Date: 11/09/2021 Division of Birthdate: 1955 Cardiology Room #: CC [facility] Cardiovascular Services [facility] [address] [place], [place] [address] Cardiovascular Laboratory Report LOOP IMPLANT PROCEDURE NOTE [...] the sternum on the left using the [employer] tool. The loop recorder was then [...] observed. LOOP details: Device Model: [id number] Serial#: [id number] Sensin.16mV. IMPRESSION: Successful placement of LOOP implant with excellent sensing parameters. RECOMMENDATIONS: 1. Occlusive dressing to be changed after 7 days. 2. Do not wet the incision. Lalito Joshi MD Cardiac Electrophysiology. Electronically Signed by: Lalito Joshi MD 11/10/2021 11:10 A Lalito Joshi MD Date Dict: 11/09/2021/08:45 A/Lalito Joshi MD Date Trans: 11/09/2021 11:32 A/liliane DN_[id number] cc: Radha Burris M.D. [facility] [address] Normal [facility] POC SARS COV2 IDon 2 SARS-CoV-2 (COVID-19) RNA MIKE+probe Ql (Unsp spec) Negative Normal NEGATIVE [facility] Comment on above: Result Comment: ID [...] of Accreditation. Performed By: #### 5 6101, [id number] #### [facility] [address] [place] [address], [facility] BNPon 10-03-2021 Natriuretic peptide B (Bld) [Mass/Vol] 75.0 pg/mL Normal <=900.0 [facility] Comment on above: Performed By: #### H STROPN #### [facility] [address] [address] [address] Kulwant Brennan CARDIAC MAYELIN ADMITon 022 CK [Catalytic activity/Vol] 142 U/L Normal 39-308 [facility] Comment on above: Performed By: #### H STROPN #### [facility] [address] [place] [address] Dr. Kulwant Brennan CK.MB [Mass/Vol] 1.15 ng/mL Normal <=3.60 [facility] Comment on above: Performed By: #### H STROPN #### [facility] [address] [place] [address] Dr. Kulwant Brennan HSTROP 4.0 pg/mL Normal 4.0-76.1 [facility] Comment on above: Result Comment: CUT- OFF POINTS HAVE BEEN ESTABLISHED BASED ON THE FOURTH UNIVERSAL DEFINITIONS OF MYOCARDIAL INFARCTION. THE UPPER REFERENCE LIMIT (URL) OF TROPONIN, DEFINED THE 99TH PERCENTILE OF cTnI DISTRIBUTION IN A REFERENCE POPULATION, HAS BEEN CONFIRMED THE DECISION THRESHOLD FOR CT DIAGNOSIS. Performed By: #### H STROPN #### [facility] [address] [place] [address] Dr. Kulwant Brennan EFRAIN 57 ng/mL Normal 16-96 [facility] Comment on above: Performed By: #### H STROPN #### [facility] [address] [place] [address] Dr. Kulwant Brennan CBC AUTO DIFFon 10-03-2021 BASO # 0.0 103/ul Normal 0.0-0.1 [facility] Comment on above: Performed By: #### H STROPN #### [facility] [address] [place] [address] Dr. Kulwant Brennan Basophils/100 WBC (Bld) 0.4 % Normal 0.2-2.0 [facility] Comment on above: Performed By: #### H STROPN #### [facility] [address] [place] [address] Dr. Kulwant Brennan EO # 0.2 103/ul Normal 0.0-0.7 [facility] Comment on above: Performed By: #### H STROPN #### [facility] [address] [address] [address] Kulwant Brennan Eosinophils/100 WBC (Bld) 2.6 % Normal 0.9-7.0 [facility] Comment on above: Performed By: #### H STROPN #### [facility] [address] [place] [address] Dr. Kulwant Brennan Erythrocyte distribution width (RBC) [Ratio] 14.6 % Normal 11.0-15.0 [facility] Comment on above: Performed By: #### H STROPN #### [facility] [address] [place] [address] Dr. Kulwant Brennan Hematocrit (Bld) [Volume fraction] 43.0 % Normal 42.0-54.0 [facility] Comment on above: Performed By: #### H STROPN #### [facility] [address] [place] [address] Dr. Kulwant Brennan Hemoglobin (Bld) [Mass/Vol] 13.6 g/dL Critically low 14.0-18.0 [facility] Comment on above: Performed By: #### H STROPN #### [facility] [address] [place] [address] Dr. uKlwant Brennan IG # 0.03 10e3/ul Normal 0.00-0.03 [facility] Comment on above: Performed By: #### H STROPN #### [facility] [address] [place] [address] Dr. Kulwant Brennan IG % 0.4 % Normal 0.0-0.5 [facility] Comment on above: Performed By: #### H STROPN #### [facility] [address] [place] [address] Dr. Kulwant Brennan LYMPH # 1.8 103/ul Normal 1.2-3.8 [facility] Comment on above: Performed By: #### H STROPN #### [facility] [address] [place] [address] Dr. Kulwant Brennan Lymphocytes/100 WBC (Bld) 25.3 % Normal 20.5-60.0 [facility] Comment on above: Performed By: #### H STROPN #### [facility] [address] [place] [address] Dr. Kulwant Brennan MANUAL DIFF REQ NO Normal [facility] Comment on above: Performed By: #### H STROPN #### [facility] [address] [place] [address] Dr. Kulwant Brennan MCH (RBC) [Entitic mass] 27.1 pg Normal 25.9-34.0 [facility] Comment on above: Performed By: #### H STROPN #### [facility] [address] [place] [address] Dr. Kulwant Brennan MCHC (RBC) [Mass/Vol] 31.6 g/dL Normal 29.9-35.2 [facility] Comment on above: Performed By: #### H STROPN #### [facility] [address] [place] [address] Dr. Kulwant Brennan MCV (RBC) [Entitic vol] 85.8 fL Normal 80.0-94.0 [facility] Comment on above: Performed By: #### H STROPN #### [facility] [address] [place] [address] Dr. Kulwant Brennan MONO # 0.8 103/ul Normal 0.3-0.8 [facility] Comment on above: Performed By: #### H STROPN #### [facility] [address] [place] [address] Dr. Kulwatn Brennan Monocytes/100 WBC (Bld) 11.9 % Normal 1.7-12.0 [facility] Comment on above: Performed By: #### H STROPN #### [facility] [address] [place] [address] Dr. Kulwant Brennan NEUT # 4.1 103/ul Normal 1.4-6.5 [facility] Comment on above: Performed By: #### H STROPN #### [facility] [address] [place] [address] Dr. Kulwant Brennan Neutrophils/100 WBC (Bld) 59.4 % Normal 43.0-75.0 [facility] Comment on above: Performed By: #### H STROPN #### [facility] [address] [address] [address] Kulwant Brennan Platelet mean volume (Bld) [Entitic vol] 9.8 fL Normal 9.5-13.5 [facility] Comment on above: Performed By: #### H STROPN #### [facility] [address] [address] [address] Kulwant Brennan PLT 201 103/ul Normal 150-450 [facility] Comment on above: Performed By: #### H STROPN #### [facility] [address] [address] [address] Kulwant Brennan RBC 5.01 106/ul Normal 4.70-6.10 [facility] Comment on above: Performed By: #### H STROPN #### [facility] [address] [address] [address] Kulwant Brennan WBC 7.0 103/ul Normal 4.0-11.0 [facility] Comment on above: Performed By: #### H STROPN #### [facility] [address] [address] HEAD WO CONon [...] DONNELL DU Date: 2021-10-03 11:41 Normal [facility] CTA CHEST WO W CONon 06-14-2 022 CTA CHEST WO W CON EXAMINATION: [...] DONNELL DU Date: 2021-10-03 11:50 Normal [facility] ER URINE PROFILEon 2 Bilirubin Ql (U) Negative Normal NEGATIVE [facility] Comment on above: Performed By: #### H STROPN #### [facility] [address] [address] [address] Kulwant Brennan Clarity (U) CLEAR Normal CLEAR [facility] Comment on above: Performed By: #### H STROPN #### [facility] [address] [address] [address] Kulwant Brennan Color (U) LT. YELLOW Normal YELLOW [facility] Comment on above: Performed By: #### H STROPN #### [facility] [address] [place] [address] Dr. Kulwant Brennan ERUAHD A micrscopic examina tion will be performed if indicated. Normal [facility] Comment on above: Performed By: #### H STROPN #### [facility] [address] [address] [address] Kulwant Brennan Glucose Ql (U) Negative Normal NEGATIVE [facility] Comment on above: Performed By: #### H STROPN #### [facility] [address] [address] [address] Kulwant Brennan Hemoglobin Ql (U) Negative Normal NEGATIVE [facility] Comment on above: Performed By: #### H STROPN #### [facility] [address] [address] [address] Kulwant Brennan Ketones Ql (U) Negative Normal NEGATIVE [facility] Comment on above: Performed By: #### H STROPN #### [facility] [address] [place] [address] Dr. Kulwant Brennan LEUKOCYTES Negative Normal NEGATIVE [facility] Comment on above: Performed By: #### H STROPN #### [facility] [address] [place] [address] Dr. Kulwant Brennan Nitrite Ql (U) Negative Normal NEGATIVE [facility] Comment on above: Performed By: #### H STROPN #### [facility] [address] [place] [address] Dr. Kulwant Brennan pH (U) 5.5 [pH] Normal 5-9 [facility] Comment on above: Performed By: #### H STROPN #### [facility] [address] [place] [address] Dr. Kulwant Brennan SPEC GRAVITY 1.025 Normal 1.005-<=1. 025 [facility] Comment on above: Performed By: #### H STROPN #### [facility] [address] [place] [address] Dr. Kulwant Brennan UA PROTEIN Negative Normal NEGATIVE/ TRACE [facility] Comment on above: Performed By: #### H STROPN #### [facility] [address] [place] [address] Dr. Kulwant Brennan UR MICRO IND NOT INDICATED Normal [facility] Comment on above: Performed By: #### H STROPN #### [facility] [address] [place] [address] Dr. Kulwant Brennan Urobilinogen Qn (U) 0.2 {Luis'U}/dL Normal 0.2 - 1. 0 [facility] Comment on above: Performed By: #### H STROPN #### [facility] [address] [address] [address] Kulwant Brennan PROF 14(COMP METB)on 022 Albumin [Mass/Vol] 3.9 g/dL Normal 3.4-5.0 [facility] Comment on above: Performed By: #### H STROPN #### [facility] [address] [address] [address] Kulwant Brennan Albumin/Globulin [Mass ratio] 1.0 {ratio} Normal [facility] Comment on above: Performed By: #### H STROPN #### [facility] [address] [place] [address] Dr. Kulwant Brennan ALP [Catalytic activity/Vol] 59 U/L Normal 46-116 [facility] Comment on above: Performed By: #### H STROPN #### [facility] [address] [place] [address] Dr. Kulwant Brennan ALT [Catalytic activity/Vol] 30 U/L Normal 16-63 [facility] Comment on above: Performed By: #### H STROPN #### [facility] [address] [place] [address] Dr. Kulwant Brennan Anion gap [Moles/Vol] 13.4 mmol/L Normal [facility] Comment on above: Performed By: #### H STROPN #### [facility] [address] [place] [address] Dr. Kulwant Brennan AST [Catalytic activity/Vol] 14 U/L Critically low 15-37 [facility] Comment on above: Performed By: #### H STROPN #### [facility] [address] [place] [address] Dr. Kulwant Brennan Bilirubin [Mass/Vol] 0.6 mg/dL Normal 0.2-1.0 [facility] Comment on above: Performed By: #### H STROPN #### [facility] [address] [place] [address] Dr. Kulwant Brennan Calcium [Mass/Vol] 7.6 mg/dL Critically low 8.5-10.1 [facility] Comment on above: Performed By: #### H STROPN #### [facility] [address] [address] [address] Kulwant Brennan Chloride [Moles/Vol] 107 mmol/L Normal 98-107 [facility] Comment on above: Performed By: #### H STROPN #### [facility] [address] [address] [address] Kulwant Brennan CO2 [Moles/Vol] 24.4 mmol/L Normal 21.0-32.0 [facility] Comment on above: Performed By: #### H STROPN #### [facility] [address] [place] [address] Dr. Kulwant Brennan Creatinine [Mass/Vol] 1.36 mg/dL Critically high 0.70-1.30 [facility] Comment on above: Performed By: #### H STROPN #### [facility] [address] [address] [address] Kulwant Brennan EGFR-AF LITHUANIAN >60 Normal >=60 [facility] [facility] Comment on above: Performed By: #### H STROPN #### [facility] [address] [place] [address] Dr. Kulwant Brennan EGFR-NON AF LITHUANIAN 52 mL/min/1.73m2 Critically low >=60 [facility] Comment on above: Performed By: #### H STROPN #### [facility] [address] [address] [address] Kulwant Brennan Globulin (S) [Mass/Vol] 3.8 g/dL Normal [facility] Comment on above: Performed By: #### H STROPN #### [facility] [address] [address] [address] Kulwant Brennan Glucose [Mass/Vol] 99 mg/dL Normal 74-106 [facility] Comment on above: Performed By: #### H STROPN #### [facility] [address] [address] [address] Kulwant Brennan Potassium [Moles/Vol] 3.8 mmol/L Normal 3.5-5.1 [facility] Comment on above: Performed By: #### H STROPN #### [facility] [address] [address] [address] Kulwant Brennan Protein [Mass/Vol] 7.7 g/dL Normal 6.4-8.2 [facility] Comment on above: Performed By: #### H STROPN #### [facility] [address] [address] [address] Kulwant Brennan Sodium [Moles/Vol] 141 mmol/L Normal 136-145 [facility] Comment on above: Performed By: #### H STROPN #### [facility] [address] [address] [address] Kulwant Brennan Urea nitrogen [Mass/Vol] 24.0 mg/dL Critically high 7.0-18.0 [facility] Comment on above: Performed By: #### H STROPN #### [facility] [address] [address] [address] Kulwant Brennan Urea nitrogen/Creatinine [Mass ratio] 17.6 mg/mg Normal [facility] Comment on above: Performed By: #### H STROPN #### [facility] [address] [address] [address] Kulwant Brennan PROTIMEon 10-03-2021 INR Coag (PPP) [Relative time] 1.04 {INR} Normal [facility] Comment on above: Performed By: #### P T, PTT ####[facility] [address] [address]Dr. Kulwant Brennan INR GUIDELINES SEE BELOW Normal [facility] Comment on above: Result Comment: HAYDEE RED INR: 2.0 - 3.0 CONDITIONS NOT LISTED BELOW 2.5 - 3.5 FOR PROSTHETIC HEART VALVE REPLACEMENT 2.5 - 3.5 RECURRENT THROMBOSIS Performed By: #### P T, PTT ####[facility] [address] [address]Dr. Kulwant Brennan PT Coag (PPP) [Time] 11.2 s Normal 9.0-11.6 [facility] Comment on above: Performed By: #### P T, PTT ####[facility] [address] [place], [place] [address]GuDr. Kulwant Brennan PTTon 10-03-2021 aPTT Coag (Bld) [Time] 33.1 s Normal 22.3-36.2 [facility] Comment on above: Performed By: #### P T, PTT ####[facility] [address] [place], [place] [address]RnDr. Kulwant Brennan TROPONIN, HIGH SENSITIVITYon 10-03-2021 HSTROP 5.1 pg/mL Normal 4.0-76.1 [facility] Comment on above: Result Comment: CUT- OFF POINTS HAVE BEEN ESTABLISHED BASED ON THE FOURTH UNIVERSAL DEFINITIONS OF MYOCARDIAL INFARCTION. THE UPPER REFERENCE LIMIT (URL) OF TROPONIN, DEFINED THE 99TH PERCENTILE OF cTnI DISTRIBUTION IN A REFERENCE POPULATION, HAS BEEN CONFIRMED THE DECISION THRESHOLD FOR CT DIAGNOSIS. Performed By: #### H STROPN #### [facility] [address] [address] [address] Kulwant Brennan VC VENOUS REFLUX RIOS LMTon 0 10-03-2021 VC VENOUS REFLUX RIOS LMT Patient: YOLI ANTUNEZ Exam Date: 10/03/2021 : 1955 Gender:M Ordering : YANDELDOMINGA SHEN Admission #: [id number] Family : Order #: [id number] CLICK HERE TO VIEW EXAM RADIOLOGY REPORT [...] chronic thrombus visualized Compressibility: Normal Flow: Normal Project Estimator: Dist/med off PTV 2 mm, 0s reflux; [...] Du M.D. on 10/04/2021 at 12:09 Normal [facility] XR CHEST 1 Von 10-03-2021 [...] LUZ ELENA EMERY Date: 2021-10-03 13:00 Normal [facility] ANAon 09-29-2021 KYLE PATTERN NUCLEOLAR Normal [facility] Comment on above: Result Comment: The [...] authority. Performed By: #### 1 0196 #### [facility] [address] KYLE SCREEN 1:40 Normal <1:40,1:40 [facility] Comment on above: Result Comment: Test performed using KHALIDA IFA KYLE Hep-2 Test, a pre-standardized assay designed for the qualitative and semi-quantitative detection of antinuclear antibodies. Performed By: #### 1 0196 #### [facility] [address] C REACTIVE PROTEINon 022 CRP [Mass/Vol] 3.1 mg/L Normal 0.0-7.0 [facility] Comment on above: Performed By: #### 5 6101, [address] #### [facility] [address] CYCLIC CITRULLINATED PEPTIDE AB [id number] 09-29-2021 CYCLIC CIT PEP 4 Units Normal 0-19 [facility] Comment on above: Result Comment: INTE [...] be monitored and testing repeated. Performed By: [facility] [address] [place] [address] Certified Cytotechnologist: Jaz Villareal MD RHEUMATOID FACTOR SERUMon RA <20 Normal 0-20 [facility] Comment on above: Performed By: #### 5 6101, [address] #### [facility] [address] [facility]. [address] SEDIMENTATION RATEon 022 SED RATE 12 mm/hr High 0-10 [facility] Comment on above: Performed By: #### 5 6506 #### [facility] [address] [facility]. [address] US ANDREW DOP LEG BILon 022 [...] ERICK DEL ANGEL Date: 2021-09-27 16:12 [address] [facility] [address] Head or Brain w/o [...] by Hollis Cadet on 09/11/2021 1546 Normal [facility] Comprehensive Metabolic Pane julian 06-27-2021 Albumin [Mass/Vol] 4.9 g/dL Normal 3.6-5.1 [facility] Comment on above: Performed By: #### C MP #### [facility] [address], [place] [id number] Albumin/Globulin [Mass ratio] 1.8 {ratio} Normal 1.0-2.5 [facility] Comment on above: Performed By: #### C MP #### [facility] [address], [place] [id number] ALP [Catalytic activity/Vol] 83 U/L Normal 40-129 [facility] Comment on above: Performed By: #### C MP #### [facility] [address], [place] [id number] ALT [Catalytic activity/Vol] 20 U/L Normal 9-46 [facility] Comment on above: Result Comment: 03/22 Female reference range changed. Performed By: #### C MP #### [facility] [address], [place] [id number] Anion gap [Moles/Vol] 18 mmol/L Normal 12-20 [facility] Comment on above: Result Comment: Effe ctive 04/27/2019 reference range changed. Performed By: #### C MP #### [facility] [address], [place] [id number] AST [Catalytic activity/Vol] 18 U/L Normal 10-40 [facility] Comment on above: Performed By: #### C MP #### [facility] [address], [place] [id number] Bilirubin [Mass/Vol] 0.33 mg/dL Normal 0.30-1.20 [facility] Comment on above: Performed By: #### C MP #### [facility] [address], [place] [id number] BUN/CREA 20 Ratio Normal 6-22 [facility] Comment on above: Performed By: #### C MP #### [facility] [address], [place] [id number] Calcium [Mass/Vol] 8.4 mg/dL Low 8.6-10.2 [facility] Comment on above: Performed By: #### C MP #### [facility] [address], [place] [id number] Chloride [Moles/Vol] 106 mmol/L Normal 98-107 [facility] Comment on above: Performed By: #### C MP #### [facility] [address], [place] [id number] CO2 [Moles/Vol] 24 mmol/L Normal 20-31 [facility] Comment on above: Performed By: #### C MP #### [facility] [address], [place] [id number] Creatinine [Mass/Vol] 1.4 mg/dL Normal 0.7-1.4 [facility] Comment on above: Performed By: #### C MP #### [facility] [address], [place] [id number] eGFRAA 59 mL/min/1.73m2 Low >60 [facility] Comment on above: Performed By: #### C MP #### [facility] [address], [place] [id number] eGFRNAA 49 mL/min/1.73m2 Low >60 [facility] Comment on above: Performed By: #### C MP #### [facility] [address], [place] [id number] Globulin (S) [Mass/Vol] 2.7 g/dL Normal 1.9-3.7 [facility] Comment on above: Performed By: #### C MP #### [facility] [address], [place] [id number] Glucose [Mass/Vol] 98 mg/dL Normal 65-99 [facility] Breastfeeding Educator Comment on above: Result Comment: For FASTING Glucose --- ADA reference ranges: Normal 65-99 mg/dl Prediabetes 100-125 Diabetes >/= 126 Performed By: #### C MP #### [facility] [address], [place] [id number] Potassium [Moles/Vol] 5.0 mmol/L Normal 3.5-5.5 [facility] Comment on above: Performed By: #### C MP #### [facility] [address], [place] [id number] Protein [Mass/Vol] 7.6 g/dL Normal 6.1-8.1 [facility] Breastfeeding Educator Comment on above: Performed By: #### C MP #### [facility] [address], [place] [id number] Sodium [Moles/Vol] 143 mmol/L Normal 135-146 [facility] Breastfeeding Educator Comment on above: Performed By: #### C MP #### [facility] [address], [place] [id number] Urea nitrogen [Mass/Vol] 30 mg/dL High 7-25 [facility] Comment on above: Performed By: #### C MP #### [facility] [address], [place] [id number] Magnesiumon 06-07-2021 Magnesium [Mass/Vol] 2.0 mg/dL Normal 1.5-2.3 [facility] Specialist Comment on above: Performed By: #### V ITD, MG, PHOS #### [facility] [address], [place] [id number] Parathyroid Hormone, Intacto n 06-07-2021 PTH 12.53 pg/mL Low 16.00-65.0 0 [facility] Comment on above: Performed By: #### P TH* #### [facility] [address], [place] [id number] Phosphoruson 06-07-2021 Phosphate [Mass/Vol] 4.3 mg/dL Normal 2.2-4.4 [facility] Breastfeeding Educator Comment on above: Performed By: #### V ITD, MG, PHOS #### [facility] [address], [place] [id number] Q - CALCIUM,IONIZEDon 2021 CALCIUM, IONIZED 4.0 mg/dL Low 4.8-5.6 [facility] Breastfeeding Educator Comment on above: Order Comment: [facility] performed at: QPT, [facility], [address], [address] [facility], [place], [address], Certified Cytotechnologist: Janes Vasquez MDQuest Collection Date/Time: [id number] Results Received Date/Time: [id number] Reported Date/Time: Performed By: #### C MP, CBCAD, TSH #### [facility] [address], [place] [id number] Vitamin D 25-OHon 06-07-2021 VIT D 25 OH 27 ng/ml Low >29 [facility] Breastfeeding Educator Comment on above: Result Comment: Merlene min D Status Deficiency <20 ng/mL Insufficiency 20-29 ng/mL Optimal 30-100 ng/mL Possible Toxicity >=150 ng/mL Performed By: #### V ITD, MG, PHOS #### [facility] [address], [place] [id number] Complete Blood Count with Au to Diffon 06-06-2021 Basophils (Bld) [#/Vol] 0.04 10*3/uL Normal 0.00-0.20 [facility] Breastfeeding Educator Comment on above: Performed By: #### C MP, CBCAD, TSH #### [facility] [address], [place] [id number] Basophils/100 WBC (Bld) 0.6 % Normal [facility] Breastfeeding Educator Comment on above: Performed By: #### C MP, CBCAD, TSH #### [facility] [address], [place] [id number] Eosinophils (Bld) [#/Vol] 0.28 10*3/uL Normal 0.02-0.50 [facility] Breastfeeding Educator Comment on above: Performed By: #### C MP, CBCAD, TSH #### [facility] [address], [place] [id number] Eosinophils/100 WBC (Bld) 4.1 % Normal [facility] Breastfeeding Educator Comment on above: Performed By: #### C MP, CBCAD, TSH #### [facility] [address], [place] [id number] Erythrocyte distribution width (RBC) [Ratio] 14.5 % Normal 11.0-15.0 [facility] Breastfeeding Educator Comment on above: Performed By: #### C MP, CBCAD, TSH #### [facility] [address], [place] [id number] Hematocrit (Bld) [Volume fraction] 43.0 % Normal 38.5-50.0 [facility] Breastfeeding Educator Comment on above: Performed By: #### C MP, CBCAD, TSH #### [facility] [address], [place] [id number] Hemoglobin (Bld) [Mass/Vol] 13.7 g/dL Normal 13.0-17.1 [facility] Breastfeeding Educator Comment on above: Performed By: #### C MP, CBCAD, TSH #### [facility] [address], [place] [id number] Lymphocytes (Bld) [#/Vol] 1.6 10*3/uL Normal 0.9-3.9 [facility] Breastfeeding Educator Comment on above: Performed By: #### C MP, CBCAD, TSH #### [facility] [address], [place] [id number] Lymphocytes/100 WBC (Bld) 22.6 % Normal [facility] Breastfeeding Educator Comment on above: Performed By: #### C MP, CBCAD, TSH #### [facility] [address], [place] [id number] MCH (RBC) [Entitic mass] 26.1 pg Low 27.0-33.0 [facility] Breastfeeding Educator Comment on above: Performed By: #### C MP, CBCAD, TSH #### [facility] [address], [place] [id number] MCHC (RBC) [Mass/Vol] 31.9 g/dL Low 32.0-36.0 [facility] Breastfeeding Educator Comment on above: Performed By: #### C MP, CBCAD, TSH #### [facility] [address], [place] [id number] MCV (RBC) [Entitic vol] 82 fL Normal 80-100 [facility] Comment on above: Performed By: #### C MP, CBCAD, TSH #### [facility] [address], [place] [id number] Monocytes (Bld) [#/Vol] 0.7 10*3/uL Normal 0.2-0.9 [facility] Comment on above: Performed By: #### C MP, CBCAD, TSH #### [facility] [address], [place] [id number] Monocytes/100 WBC (Bld) 10.1 % Normal [facility] Comment on above: Performed By: #### C FILIBERTO, CBCAD, TSH #### [facility] [address], [place] [id number] Neutrophils (Bld) [#/Vol] 4.3 10*3/uL Normal 1.5-7.8 [facility] Comment on above: Performed By: #### C FILIBERTO, CBCAD, TSH #### [facility] [address], [place] [id number] Neutrophils/100 WBC (Bld) 62.0 % Normal [facility] Comment on above: Performed By: #### C FILIBERTO, CBCAD, TSH #### [facility] [address], [place] [id number] Platelet mean volume (Bld) [Entitic vol] 10.90 fL Normal 7.50-12.50 [facility] Comment on above: Performed By: #### C MP, CBCAD, TSH #### [facility] [address], [place] [id number] Platelets (Bld) [#/Vol] 250 10*3/uL Normal 140-400 [facility] Comment on above: Performed By: #### C MP, CBCAD, TSH #### [facility] [address], [place] [id number] RBC (Bld) [#/Vol] 5.25 10*6/uL Normal 4.20-5.80 [facility] Specialist Comment on above: Performed By: #### C MP, CBCAD, TSH #### [facility] [address], [place] [id number] RDW-SD 43.3 fL Normal 37.0-50.0 [facility] Breastfeeding Educator Comment on above: Performed By: #### C FILIBERTO, CBCAD, TSH #### [facility] [address], [place] [id number] WBC (Bld) [#/Vol] 6.9 10*3/uL Normal 3.8-11.0 Diane rn [place] Breastfeeding Educator Comment on above: Performed By: #### C FILIBERTO, CBCAD, TSH #### [facility] [address], [place] [id number] Comprehensive Metabolic Pane julian 06-06-2021 Albumin [Mass/Vol] 4.7 g/dL Normal 3.6-5.1 Diane rn [place] [facility] Educ[facility] Comment on above: Performed By: #### C FILIBERTO, CBCAD, TSH #### [facility] [address], [place] [id number] Albumin/Globulin [Mass ratio] 1.8 {ratio} Normal 1.0-2.5 [facility] Breastfeeding Educator Comment on above: Performed By: #### C FILIBERTO, CBCAD, TSH #### [facility] [address], [place] [id number] ALP [Catalytic activity/Vol] 87 U/L Normal 40-129 [facility] Breastfeeding Educator Comment on above: Performed By: #### C FILIBERTO, CBCAD, TSH #### [facility] [address], [place] [id number] ALT [Catalytic activity/Vol] 22 U/L Normal 9-46 [facility] Breastfeeding Educator Comment on above: Result Comment: 03/22 Female reference range changed. Performed By: #### C FILIBERTO, CBCAD, TSH #### [facility] [address], [place] [id number] Anion gap [Moles/Vol] 20 mmol/L Normal 12-20 [facility] Breastfeeding Educator Comment on above: Result Comment: Effe ctive 04/27/2019 reference range changed. Performed By: #### C MP, CBCAD, TSH #### [facility] [address], [place] [id number] AST [Catalytic activity/Vol] 18 U/L Normal 10-40 [facility] Comment on above: Performed By: #### C MP, CBCAD, TSH #### [facility] [address], [place] [id number] BUN/CREA 19 Ratio Normal 6-22 [facility] Comment on above: Performed By: #### C MP, CBCAD, TSH #### [facility] [address], [place] [id number] Calcium [Mass/Vol] 7.4 mg/dL Low 8.6-10.2 [facility] Comment on above: Performed By: #### C MP, CBCAD, TSH #### [facility] [address], [place] [id number] Chloride [Moles/Vol] 106 mmol/L Normal 98-107 [facility] Comment on above: Performed By: #### C MP, CBCAD, TSH #### [facility] [address], [place] [id number] CO2 [Moles/Vol] 20 mmol/L Normal 20-31 [facility] Comment on above: Performed By: #### C MP, CBCAD, TSH #### [facility] [address], [place] [id number] Creatinine [Mass/Vol] 1.5 mg/dL High 0.7-1.4 [facility] Comment on above: Performed By: #### C MP, CBCAD, TSH #### [facility] [address], [place] [id number] eGFRAA 59 mL/min/1.73m2 Low >60 [facility] Comment on above: Performed By: #### C MP, CBCAD, TSH #### [facility] [address], [place] [id number] eGFRNAA 48 mL/min/1.73m2 Low >60 [facility] Comment on above: Performed By: #### C MP, CBCAD, TSH #### [facility] [address], [place] [id number] Globulin (S) [Mass/Vol] 2.6 g/dL Normal 1.9-3.7 [facility] Comment on above: Performed By: #### C MP, CBCAD, TSH #### [facility] [address], [place] [id number] Glucose [Mass/Vol] 112 mg/dL High 65-99 [facility] rn [place] Breastfeeding Educator Comment on above: Result Comment: For FASTING Glucose --- ADA reference ranges: Normal 65-99 mg/dl Prediabetes 100-125 Diabetes >/= 126 Performed By: #### C MP, CBCAD, TSH #### [facility] [address], [place] [id number] Potassium [Moles/Vol] 4.3 mmol/L Normal 3.5-5.5 [facility] Breastfeeding Educator Comment on above: Performed By: #### C MP, CBCAD, TSH #### [facility] [address], [place] [id number] Protein [Mass/Vol] 7.3 g/dL Normal 6.1-8.1 [facility] rn [place] Breastfeeding Educator Comment on above: Performed By: #### C MP, CBCAD, TSH #### [facility] [address], [place] [id number] Sodium [Moles/Vol] 142 mmol/L Normal 135-146 [facility] rn [place] Breastfeeding Educator Comment on above: Performed By: #### C MP, CBCAD, TSH #### [facility] [address], [place] [id number] TBIL <0.3 Normal [facility] Breastfeeding Educator Comment on above: Performed By: #### C MP, CBCAD, TSH #### [facility] [address], [place] [id number] Urea nitrogen [Mass/Vol] 27 mg/dL High 7-25 [facility] Breastfeeding Educator Comment on above: Performed By: #### C MP, CBCAD, TSH #### [facility] [address], [place] [id number] Q - TROPONIN Ion 06-06-2021 TROPONIN I 3 ng/L Normal < OR = 47 [facility] Breastfeeding Educator Comment on above: Order Comment: [facility] performed at: QPT, [facility], [address] [facility], [address] [facility], [place], [address], Certified Cytotechnologist: Janes Vasquez MDQuest Collection Date/Time: [id number] Results Received Date/Time: [id number] Reported Date/Time: [id number] Result Comment: In accord with published recommendations, serial testing of troponin I at intervals of 2 to 4 hours for up to 12 to 24 hours is suggested in order to corroborate a single troponin I result. An elevated troponin alone is not sufficient to make the diagnosis of CT. Performed By: #### C MP, CBCAD, TSH #### [facility] [address], [place] [id number] TSHon 06-06-2021 TSH 0.917 uIU/mL Normal 0.400-4.50 0 [facility] Breastfeeding Educator Comment on above: Performed By: #### C MP, CBCAD, TSH #### [facility] [address], [place] [id number] CT Chest WO contraston 05-01 IMPRESSION: 1. Mild bronchiectasis in both lower lobes, the right middle lobe and the lingula, consistent with remote or chronic airways inflammation. In this distribution, sequelae of chronic aspiration pneumonitis must be considered. A type III hiatal hernia is noted. 2. Fusiform dilation of the ascending thoracic aorta, stable in appearance since the exam dated 01/05/2021. Correctional Officer Chief: PSCB Transcribe Date/Time: May 01 2021 8:27A Dictated by : MASSIMO OAKES MD This examination was interpreted and the report reviewed and electronically signed by: MASSIMO OAKES MD on May 01 2021 8:49AM [facility] DIVISION OF RADIOLOGY * * [...] A few calcified splenic granulomata are noted. Security Project Manager (topogram) images: No additional findings. DIVISION OF RADIOLOGY Provider, [facility] - 05/01/2021 * * *Final Report* [...] A few calcified splenic granulomata are noted. Security Project Manager (topogram) images: No additional findings. IMPRESSION IMPRESSION: 1. Mild bronchiectasis in both lower lobes, the right middle lobe and the lingula, consistent with remote or chronic airways inflammation. In this distribution, sequelae of chronic aspiration pneumonitis must be considered. A type III hiatal hernia is noted. 2. Fusiform dilation of the ascending thoracic aorta, stable in appearance since the exam dated 01/05/2021. Correctional Officer Chief: TRACI Transcribe Date/Time: May 01 2021 8:27A Dictated by : MASSIMO OAKES MD This examination was interpreted and the report reviewed and electronically signed by: MASSIMO OAKES MD on May 01 2021 8:49AM EST [facility] Radiology Study observation (narrative) [facility] CT Chest WO contrastOrdered By: [facility] Provider on 05-01-2021 [facility] Creatinineon 04-28-2018 Creatinine mass conc 1.47 mg/dL High 0.50-1.30 [facility] Comment on above: Performed By: #### 1 [id number] ####[facility] [address] [place] [address] GFR/1.73 sq M.predicted MDRD vol rate/area 48 mL/min/{1.73_m2} Normal [facility] Comment on above: Result Comment: Inte rpretation for Chronic Kidney Disease:Stages 1&2 >60 Healthy or potential kidney damage.Mild decrease of GFR.Stage 3 30-59 Moderate decrease of GFR.Stage 4 15-29 Severe decrease of GFR.Stage 5 <15 Kidney failure or on dialysis. Performed By: #### 1 [id number] ####[facility] [address] [place] [address] Electrolyte Panelon 04-28-19 19 Anion gap 3 molar conc 10 mmol/L Normal 10-20 [facility] Comment on above: Performed By: #### 1 [id number] ####[facility] [address] [place] [address] Chloride molar conc 110 mmol/L High 98-107 [facility] Comment on above: Performed By: #### 1 [id number] ####[facility] [address] [place] [address] HCO3 molar conc (Bld) 25 mmol/L Normal 21-32 [facility] Comment on above: Performed By: #### 1 [id number] ####[facility] [address] [place] [address] Potassium molar conc 4.2 mmol/L Normal 3.5-5.1 [facility] Comment on above: Performed By: #### 1 [id number] ####[facility] [address] [place] [address] Sodium molar conc 141 mmol/L Normal 136-145 [facility] Comment on above: Performed By: #### 1 [id number] ####[facility] [address] [place] [address] Urea Nitrogenon 04-28-2018 Urea nitrogen mass conc 32 mg/dL High 6-23 [facility] Comment on above: Performed By: #### 1 [id number] ####[facility] [address] [place] [address] Vital Signs Date Time Vital Sign Value Performing Clinician Facility 12-25-2024 09:00-0400 Body mass index (BMI) [Ratio] 29.12 kg/m2 Shivani Adams RN PAIN MANAGEMENT Work Phone: [facility] 12-25-2024 09:00-0400 Body weight 114.31 kg Shivani Adams RN PAIN MANAGEMENT Work Phone: [facility] 12-25-2024 09:00-0400 Diastolic blood pressure 80 mm[Hg] Shivani Adams RN PAIN MANAGEMENT Work Phone: [facility] 12-25-2024 09:00-0400 Heart rate 75 /min Shivani Adams RN PAIN MANAGEMENT Work Phone: [facility] 12-25-2024 09:00-0400 SaO2% (BldA) [Mass fraction] 99 % Shivani Wilkersonnicholasnoé RN PAIN MANAGEMENT Work Phone: [facility] 12-25-2024 09:00-0400 Systolic blood pressure 118 mm[Hg] hSivani Adams RN PAIN MANAGEMENT Work Phone: [facility] 11-10-2024 11:21-0400 Body height 198.1 cm Abby Bernstein APRN.ORDER PACKER Work Phone: [facility] 11-10-2024 11:21-0400 Body mass index (BMI) [Ratio] 28.31 kg/m2 Abby Bernstein SALES PROJECT COORDINATOR.ORDER PACKER Work Phone: [facility] 11-10-2024 11:21-0400 Body weight 111.13 kg Abby Bernstein SALES PROJECT COORDINATOR.ORDER PACKER Work Phone: [facility] 11-10-2024 11:21-0400 Diastolic blood pressure 86 mm[Hg] Abby Bernstein SALES PROJECT COORDINATOR.ORDER PACKER Work Phone: [facility] 11-10-2024 11:21-0400 Heart rate 83 /min Abby Bernstein SALES PROJECT COORDINATOR.ORDER PACKER Work Phone: [facility] 11-10-2024 11:21-0400 SaO2% (BldA) [Mass fraction] 98 % Abby Bernstein SALES PROJECT COORDINATOR.ORDER PACKER Work Phone: [facility] 11-10-2024 11:21-0400 Systolic blood pressure 127 mm[Hg] Abby Bernstein SALES PROJECT COORDINATOR.ORDER PACKER Work Phone: [facility] 10-29-2024 13:07-0400 Body height 198.1 cm Lalito Biedenbach DO Work Phone: [facility] 10-29-2024 13:07-0400 Body mass index (BMI) [Ratio] 28.89 kg/m2 Lalito Biedenbach DO Work Phone: [facility] 10-29-2024 13:07-0400 Body weight 113.4 kg Lalito Biedenbach DO Work Phone: [facility] 10-15-2024 14:39-0400 Body height 198.1 cm Lalito Biedenbach DO Work Phone: [facility] 10-15-2024 14:39-0400 Body mass index (BMI) [Ratio] 28.89 kg/m2 Lalito Biedenbach DO Work Phone: [facility] 10-15-2024 14:39-0400 Body weight 113.4 kg Lalito Biedenbach DO Work Phone: [facility] 09-22-2024 15:12-0400 Body height 198.1 cm Lalito Biedenbach DO Work Phone: [facility] 09-22-2024 15:12-0400 Body mass index (BMI) [Ratio] 28.89 kg/m2 Lalito Biedenbach DO Work Phone: [facility] 09-22-2024 15:12-0400 Body weight 113.4 kg Lalito Biedenbach DO Work Phone: [facility] 09-08-2024 14:29-0400 Body height 198.1 cm Lalito Biedenbach DO Work Phone: [facility] 09-08-2024 14:29-0400 Body mass index (BMI) [Ratio] 28.89 kg/m2 Lalito Biedenbach DO Work Phone: [facility] 09-08-2024 14:29-0400 Body weight 113.4 kg Lalito Biedenbach DO Work Phone: [facility] 09-02-2024 14:53-0400 Body height 198.1 cm Shivani Wilkersonnicholasnoé RN PAIN MANAGEMENT Work Phone: [facility] 09-02-2024 14:53-0400 Body mass index (BMI) [Ratio] 28.98 kg/m2 Shivani Wilkersonnicholasnoé RN PAIN MANAGEMENT Work Phone: [facility] 09-02-2024 14:53-0400 Body temperature 98.91 [degF] Shivani Wilkersonshameka RN PAIN MANAGEMENT Work Phone: [facility] 09-02-2024 14:53-0400 Body weight 113.76 kg Shivani Wilkersonnicholasnoé RN PAIN MANAGEMENT Work Phone: [facility] 09-02-2024 14:53-0400 Diastolic blood pressure 70 mm[Hg] Shivani Wilkersonshameka RN PAIN MANAGEMENT Work Phone: [facility] 09-02-2024 14:53-0400 Heart rate 77 /min Shivani Adams RN PAIN MANAGEMENT Work Phone: [facility] 09-02-2024 14:53-0400 SaO2% (BldA) [Mass fraction] 98 % Shivani Adams RN PAIN MANAGEMENT Work Phone: [facility] 09-02-2024 14:53-0400 Systolic blood pressure 128 mm[Hg] Shivani Adams RN PAIN MANAGEMENT Work Phone: [facility] 08-21-2024 14:10-0400 Body mass index (BMI) [Ratio] 28.96 kg/m2 Radha Burris MD Work Phone: [facility] 08-21-2024 14:10-0400 Body temperature 99.1 [degF] Radha Burris MD Work Phone: [facility] 08-21-2024 14:10-0400 Body weight 113.67 kg Radha Burris MD Work Phone: [facility] 08-21-2024 14:10-0400 Diastolic blood pressure 84 mm[Hg] Radha Burris MD Work Phone: [facility] 08-21-2024 14:10-0400 Heart rate 76 /min Radha Burris MD Work Phone: [facility] 08-21-2024 14:10-0400 SaO2% (BldA) [Mass fraction] 96 % Radha Burris MD Work Phone: [facility] 08-21-2024 14:10-0400 Systolic blood pressure 132 mm[Hg] Radha Burris MD Work Phone: [facility] 08-19-2024 08:53-0400 Body height 198.1 cm Shashi Pina DO Work Phone: [facility] 08-19-2024 08:53-0400 Body mass index (BMI) [Ratio] 28.08 kg/m2 Shashi Pina DO Work Phone: [facility] 08-19-2024 08:53-0400 Body weight 110.22 kg Shashi Pina DO Work Phone: [facility] 08-19-2024 08:53-0400 Diastolic blood pressure 90 mm[Hg] Devonteer Silvana DO Work Phone: [facility] 08-19-2024 08:53-0400 Heart rate 80 /min Christnadine Pina DO Work Phone: [facility] 08-19-2024 08:53-0400 Systolic blood pressure 138 mm[Hg] Devonteer Silvana DO Work Phone: [facility] 08-10-2024 09:48-0400 Body height 198.1 cm Latoya Redding MD Work Phone: [facility] 08-10-2024 09:48-0400 Body mass index (BMI) [Ratio] 29.7 kg/m2 Latoya Redding MD Work Phone: [facility] 08-10-2024 09:48-0400 Body weight 116.57 kg Latoya Redding MD Work Phone: [facility] 08-10-2024 09:48-0400 Diastolic blood pressure 68 mm[Hg] Latoya Redding MD Work Phone: [facility] 08-10-2024 09:48-0400 Heart rate 78 /min Latoya Redding MD Work Phone: [facility] 08-10-2024 09:48-0400 Respiratory rate 18 /min Latoya Redding MD Work Phone: [facility] 08-10-2024 09:48-0400 SaO2% (BldA) [Mass fraction] 96 % Latoya Redding MD Work Phone: [facility] 08-10-2024 09:48-0400 Systolic blood pressure 100 mm[Hg] Latoya Redding MD Work Phone: [facility] 07-06-2024 10:01-0400 Body height 198.1 cm Latoya Redding MD Work Phone: [facility] 07-06-2024 10:01-0400 Body mass index (BMI) [Ratio] 29.35 kg/m2 Latoya Redding MD Work Phone: [facility] 07-06-2024 10:01-0400 Body weight 115.21 kg Latoya Redding MD Work Phone: [facility] 07-06-2024 10:01-0400 Diastolic blood pressure 80 mm[Hg] Latoya Redding MD Work Phone: [facility] 07-06-2024 10:01-0400 Heart rate 77 /min Latoya Redding MD Work Phone: [facility] 07-06-2024 10:01-0400 Respiratory rate 16 /min Latoya Redding MD Work Phone: [facility] 07-06-2024 10:01-0400 SaO2% (BldA) [Mass fraction] 98 % Latoya Redding MD Work Phone: [facility] 07-06-2024 10:01-0400 Systolic blood pressure 114 mm[Hg] Latoya Redding MD Work Phone: [facility] 06-22-2024 13:10-0500 Body mass index (BMI) [Ratio] 29.19 kg/m2 Christopher Silvana DO Work Phone: [facility] 06-22-2024 13:10-0500 Body weight 114.58 kg Christopher Silvana DO Work Phone: [facility] 06-22-2024 13:10-0500 Diastolic blood pressure 90 mm[Hg] Christopher Silvana DO Work Phone: [facility] 06-22-2024 13:10-0500 Heart rate 91 /min Christopher Silvana DO Work Phone: [facility] 06-22-2024 13:10-0500 SaO2% (BldA) [Mass fraction] 98 % Christopher Silvana DO Work Phone: [facility] 06-22-2024 13:10-0500 Systolic blood pressure 128 mm[Hg] Shashi Pina DO Work Phone: [facility] 06-09-2024 09:45-0500 Body mass index (BMI) [Ratio] 29.54 kg/m2 Eleonora Leo RN PAIN MANAGEMENT Work Phone: [facility] 06-09-2024 09:45-0500 Body temperature 95.9 [degF] Eleonora Leo RN PAIN MANAGEMENT Work Phone: [facility] 06-09-2024 09:45-0500 Body weight 115.94 kg Eleonora Leo RN PAIN MANAGEMENT Work Phone: [facility] 06-09-2024 09:45-0500 Diastolic blood pressure 80 mm[Hg] Eleonora Leo RN PAIN MANAGEMENT Work Phone: [facility] 06-09-2024 09:45-0500 Heart rate 67 /min Eleonora Simonradha RN PAIN MANAGEMENT Work Phone: [facility] 06-09-2024 09:45-0500 SaO2% (BldA) [Mass fraction] 99 % Eleonora Leo RN PAIN MANAGEMENT Work Phone: [facility] 06-09-2024 09:45-0500 Systolic blood pressure 116 mm[Hg] Eleonora Leo RN PAIN MANAGEMENT Work Phone: [facility] 02-06-2024 08:51-0400 Body height 198.1 cm Radha Burris MD Work Phone: [facility] 02-06-2024 08:51-0400 Body mass index (BMI) [Ratio] 27.43 kg/m2 Rahda Burris MD Work Phone: [facility] 02-06-2024 08:51-0400 Body weight 107.68 kg Radha Burris MD Work Phone: [facility] 02-06-2024 08:51-0400 Diastolic blood pressure 70 mm[Hg] Radha Burris MD Work Phone: [facility] 02-06-2024 08:51-0400 Heart rate 74 /min Radha Burris MD Work Phone: [facility] 02-06-2024 08:51-0400 SaO2% (BldA) [Mass fraction] 97 % Radha Burris MD Work Phone: [facility] 02-06-2024 08:51-0400 Systolic blood pressure 110 mm[Hg] Radha Burris MD Work Phone: [facility] 01-20-2024 16:04-0400 Body mass index (BMI) [Ratio] 27.04 kg/m2 Sofia Vigil RN PAIN MANAGEMENT Work Phone: [facility] 01-20-2024 16:04-0400 Body temperature 97.3 [degF] Sofia Vigil RN PAIN MANAGEMENT Work Phone: [facility] 01-20-2024 16:04-0400 Body weight 106.14 kg Sofia Blancozpatrick RN PAIN MANAGEMENT Work Phone: [facility] 01-20-2024 16:04-0400 Diastolic blood pressure 60 mm[Hg] Sofia Vigil RN PAIN MANAGEMENT Work Phone: [facility] 01-20-2024 16:04-0400 Systolic blood pressure 108 mm[Hg] Sfoia Vigil RN PAIN MANAGEMENT Work Phone: [facility] 01-13-2024 13:24-0400 Body height 198.1 cm Shivani Adams RN PAIN MANAGEMENT Work Phone: [facility] 01-13-2024 13:24-0400 Body mass index (BMI) [Ratio] 27.53 kg/m2 Shivani Adams RN PAIN MANAGEMENT Work Phone: [facility] 01-13-2024 13:24-0400 Body weight 108.05 kg Shivani Adams RN PAIN MANAGEMENT Work Phone: [facility] 01-13-2024 13:24-0400 Diastolic blood pressure 76 mm[Hg] Shivani Adams RN PAIN MANAGEMENT Work Phone: [facility] 01-13-2024 13:24-0400 Heart rate 84 /min Shivani Adams RN PAIN MANAGEMENT Work Phone: [facility] 01-13-2024 13:24-0400 SaO2% (BldA) [Mass fraction] 96 % Shivani Adams RN PAIN MANAGEMENT Work Phone: [facility] 01-13-2024 13:24-0400 Systolic blood pressure 124 mm[Hg] Shivani Adams RN PAIN MANAGEMENT Work Phone: [facility] 12-24-2023 09:31-0400 Body height 198.1 cm Radha Burris MD Work Phone: [facility] 12-24-2023 09:31-0400 Body mass index (BMI) [Ratio] 27.62 kg/m2 Radha Burris MD Work Phone: [facility] 12-24-2023 09:31-0400 Body weight 108.41 kg Radha Burris MD Work Phone: [facility] 12-24-2023 09:31-0400 Diastolic blood pressure 88 mm[Hg] Radha Burris MD Work Phone: [facility] 12-24-2023 09:31-0400 Heart rate 79 /min Radha Burris MD Work Phone: [facility] 12-24-2023 09:31-0400 SaO2% (BldA) [Mass fraction] 97 % Radha Burris MD Work Phone: [facility] 12-24-2023 09:31-0400 Systolic blood pressure 130 mm[Hg] Radha Burris MD Work Phone: [facility] 04-16-2023 11:58-0500 Diastolic blood pressure 77 mm[Hg] MD Radha Burris Work Phone: [facility] 04-16-2023 11:58-0500 Heart rate 60 /min MD Radha Burris Work Phone: [facility] 04-16-2023 11:58-0500 Respiratory rate 16 /min MD Radha Burris Work Phone: [facility] 04-16-2023 11:58-0500 SaO2% (BldA) [Mass fraction] 100 % MD Radha Burris Work Phone: [facility] 04-16-2023 11:58-0500 Systolic blood pressure 122 mm[Hg] MD Radha Burris Work Phone: [facility] 04-16-2023 09:35-0500 Body height 198.12 cm MD Radha Burris Work Phone: [facility] 04-16-2023 09:35-0500 Body weight 111.13 kg MD Radha Burris Work Phone: [facility] 03-20-2023 14:00-0500 Body height Imad Asaad Other [facility] [employer] Other 03-20-2023 14:00-0500 Body height 195.58 cm MD Radha Burris Work Phone: [facility] 03-20-2023 14:00-0500 Body mass index (BMI) [Ratio] 30.34 kg/m2 Imad Asaad Other [facility] [employer] Other 03-20-2023 14:00-0500 Body weight 116.08 kg Imad Asaad Other [facility] [employer] Other 03-20-2023 14:00-0500 Body weight 116.07 kg MD Radha Burris Work Phone: [facility] 03-20-2023 14:00-0500 Diastolic blood pressure 70 mm[Hg] Imad Asaad Other [facility] 03-20-2023 14:00-0500 Systolic blood pressure 120 mm[Hg] Imad Asaad Other [facility] 01-31-2023 14:51-0400 Body mass index (BMI) [Ratio] 28.89 kg/m2 Yossi Chen MD Work Phone: [facility] 01-31-2023 14:51-0400 Body weight 113.4 kg Yossi Chen MD Work Phone: [facility] 12-31-2022 15:12-0400 Body height 198.1 cm Kassie Dobrowski SALES PROJECT COORDINATOR.ORDER PACKER Work Phone: [facility] 12-31-2022 15:12-0400 Body weight 114.76 kg Kassie Dobrowski SALES PROJECT COORDINATOR.ORDER PACKER Work Phone: [facility] 12-31-2022 15:12-0400 Diastolic blood pressure 77 mm[Hg] Kassie Dobrowski SALES PROJECT COORDINATOR.ORDER PACKER Work Phone: [facility] 12-31-2022 15:12-0400 Heart rate 69 /min Kassie Dobrowski SALES PROJECT COORDINATOR.ORDER PACKER Work Phone: [facility] 12-31-2022 15:12-0400 Systolic blood pressure 123 mm[Hg] Kassie Dobrowski SALES PROJECT COORDINATOR.ORDER PACKER Work Phone: [facility] 11-29-2022 13:43-0400 Body height 198.12 cm Radha Burris Work Phone: [facility] DO Work Phone: 11-29-2022 13:43-0400 Body mass index (BMI) [Ratio] 29.24 kg/m2 Radha Burris Work Phone: [facility] DO Work Phone: 11-29-2022 13:43-0400 Body surface area Derived from formula 2.49 m2 Radha Burris Work Phone: [facility] DO Work Phone: 11-29-2022 13:43-0400 Body weight 114.76 kg Radha Burris Work Phone: [facility] DO Work Phone: 11-12-2022 14:23-0400 Body height 198.12 cm Radha Burris Work Phone: [facility] DO Work Phone: 11-12-2022 14:23-0400 Body mass index (BMI) [Ratio] 29.82 kg/m2 Radha Burris Work Phone: [facility] DO Work Phone: 11-12-2022 14:23-0400 Body surface area Derived from formula 2.52 m2 Radha Burris Work Phone: [facility] DO Work Phone: 11-12-2022 14:23-0400 Body weight 117.03 kg Radha Burris Work Phone: [facility] DO Work Phone: 11-12-2022 14:23-0400 Diastolic blood pressure 65 mm[Hg] Radha Burris Work Phone: [facility] DO Work Phone: 11-12-2022 14:23-0400 Heart rate 77 /min Radha Burris Work Phone: [facility] DO Work Phone: 11-12-2022 14:23-0400 Systolic blood pressure 104 mm[Hg] Radha Burris Work Phone: [facility] DO Work Phone: 10-18-2022 14:32-0400 Diastolic blood pressure 61 mm[Hg] Infusion 3 Work Phone: [facility] 10-18-2022 14:32-0400 Heart rate 68 /min Infusion 3 Work Phone: [facility] 10-18-2022 14:32-0400 Respiratory rate 14 /min Infusion 3 Work Phone: [facility] 10-18-2022 14:32-0400 Systolic blood pressure 111 mm[Hg] Infusion 3 Work Phone: [facility] 08-30-2022 07:01-0400 Body height 184.4 cm Beth Diego MD Work Phone: [facility] 08-30-2022 07:01-0400 Body mass index (BMI) [Ratio] 33.41 kg/m2 Beth Diego MD Work Phone: [facility] 08-30-2022 07:01-0400 Body weight 113.6 kg Beth Diego MD Work Phone: [facility] 08-17-2022 10:33-0400 Body height 198.12 cm Radha Burris Work Phone: PK-Mzlrqlwmnyahxq-Z arma MAC[facility] [address] Work Phone: 08-17-2022 10:33-0400 Body mass index (BMI) [Ratio] 29.99 kg/m2 Radha Burris Work Phone: ZW-Tabkllskdzyvid-S arma MAC[facility] [address] Work Phone: 08-17-2022 10:33-0400 Body surface area Derived from formula 2.52 m2 Radha Burris Work Phone: BT-Rnafjrnalwpvkj-J arma [facility] [address] Work Phone: 08-17-2022 10:33-0400 Body temperature 97.8 [degF] Radha Burris Work Phone: JQ-Hdktoserpcuxki-I arma MAC[address] Work Phone: 08-17-2022 10:33-0400 Body weight 117.71 kg Radha Burris Work Phone: HY-Zxrlglmttvslyj-P arma MAC[facility] [address] Work Phone: 08-17-2022 10:33-0400 Diastolic blood pressure 74 mm[Hg] Radha Burris Work Phone: NS-Uujovrglbpnljf-X arma MAC[facility] [address] Work Phone: 08-17-2022 10:33-0400 Heart rate 82 /min Radha Burris Work Phone: JY-Zvdropnatarwww-K arma MAC[address] Work Phone: 08-17-2022 10:33-0400 Respiratory rate 16 /min Radha Burris Work Phone: YZ-Crkswphonpdmbt-J arma MAC[address] Work Phone: 08-17-2022 10:33-0400 SaO2% (BldA) [Mass fraction] 98 % Radha Burris Work Phone: XU-Biqxiiuniniiih-N arma MAC1 [address] Work Phone: 08-17-2022 10:33-0400 Systolic blood pressure 111 mm[Hg] Radha Burris Work Phone: MR-Pzengykpydxmoy-K arma MAC[address] Work Phone: 07-26-2022 14:25-0400 Diastolic blood pressure 77 mm[Hg] Infusion 3 Work Phone: [facility] 07-26-2022 14:25-0400 Heart rate 88 /min Infusion 3 Work Phone: [facility] 07-26-2022 14:25-0400 Systolic blood pressure 120 mm[Hg] Infusion 3 Work Phone: [facility] 07-17-2022 08:57-0400 Body height 198.12 cm Radha Burris Work Phone: [facility] Work Phone: 07-17-2022 08:57-0400 Body mass index (BMI) [Ratio] 29.08 kg/m2 Radha Burris Work Phone: [facility] Work Phone: 07-17-2022 08:57-0400 Body surface area Derived from formula 2.49 m2 Radha Burris Work Phone: [facility]rw[facility] Work Phone: 07-17-2022 08:57-0400 Body temperature 98.8 [degF] Radha Burris Work Phone: PR[facility]pto[facility] Work Phone: 07-17-2022 08:57-0400 Body weight 114.13 kg Radha Burris Work Phone: [facility]htspb[facility] Work Phone: 01-05-2022 14:08-0400 Respiratory rate 16 /min John Saul MD Work Phone: [facility] 01-05-2022 09:00-0400 Diastolic blood pressure 80 mm[Hg] John Saul MD Work Phone: [facility] 01-05-2022 09:00-0400 Heart rate 63 /min John Saul MD Work Phone: [facility] 01-05-2022 09:00-0400 Systolic blood pressure 143 mm[Hg] John Saul MD Work Phone: [facility] 01-05-2022 07:45-0400 Body temperature 97.9 [degF] John Saul MD Work Phone: [facility] 01-05-2022 07:45-0400 SaO2% (BldA) [Mass fraction] 98 % John Saul MD Work Phone: [facility] 01-03-2022 06:00-0400 Body mass index (BMI) [Ratio] 29.47 kg/m2 John Saul MD Work Phone: [facility] 01-03-2022 06:00-0400 Body weight 115.67 kg John Saul MD Work Phone: [facility] 12-31-2021 23:43-0400 Body height 198.1 cm John Saul MD Work Phone: [facility] 10-02-2021 16:00-0400 Body height Thor Fox Other [employer] Other 10-02-2021 16:00-0400 Body mass index (BMI) [Ratio] 30.71 kg/m2 Thor Fox Other [employer] Other 10-02-2021 16:00-0400 Body weight 117.48 kg Thor Fox Other [employer] Other 10-02-2021 16:00-0400 Diastolic blood pressure 72 mm[Hg] Thor Fox Other [employer] Other 10-02-2021 16:00-0400 SaO2% (BldA) [Mass fraction] 97 % Thor Fox Other [employer] Other 10-02-2021 16:00-0400 Systolic blood pressure 118 mm[Hg] Thor Fox Other [employer] Other 08-30-2021 10:15-0400 Body height Lashawn Estrada Other [employer] Other 08-30-2021 10:15-0400 Body mass index (BMI) [Ratio] 30.76 kg/m2 Lashawn Estrada Other [employer] Other 08-30-2021 10:15-0400 Body weight 117.66 kg Lashawn Estrada Other [employer] Other 08-30-2021 10:15-0400 Diastolic blood pressure 64 mm[Hg] Lashawn Estrada Other [employer] Other 08-30-2021 10:15-0400 Respiratory rate 18 /min Lashawn Estrada Other [employer] Other 08-30-2021 10:15-0400 SaO2% (BldA) [Mass fraction] 96 % Lashawn Estrada Other [employer] Other 08-30-2021 10:15-0400 Systolic blood pressure 116 mm[Hg] Lashawn Estrada Other [employer] Other 08-03-2021 16:45-0400 Body height Thor Fox Other [employer] Other 08-03-2021 16:45-0400 Body mass index (BMI) [Ratio] 30.73 kg/m2 Thor Fox Other [employer] Other 08-03-2021 16:45-0400 Body weight 117.57 kg Thor Fox Other [employer] Other 08-03-2021 16:45-0400 Diastolic blood pressure 80 mm[Hg] Thor Fox Other [employer] Other 08-03-2021 16:45-0400 SaO2% (BldA) [Mass fraction] 98 % Thor Fox Other [employer] Other 08-03-2021 16:45-0400 Systolic blood pressure 122 mm[Hg] Thor Fox Other [employer] Other 03-11-2020 13:30-0500 Body Temperature 98.1 [degF] [facility] [employer] [place] 03-11-2020 13:30-0500 BP Diastolic 75 mm[Hg] [address] [place] 03-11-2020 13:30-0500 BP Systolic 126 mm[Hg] [address] [place] 03-11-2020 13:30-0500 Pulse (Heart Rate) 69 /min [address] [place] 03-11-2020 13:30-0500 Respiratory Rate 18 /min [facility] [place] 03-11-2020 09:45-0500 Pulse Oximetry 99 % [address] [place] 03-03-2019 13:16-0500 BMI (Body Mass Index) 28 kg/m2 Chris Luong MPYO-Tfenladal-Gad[facility]xa eld [address] Work Phone: 03-03-2019 13:16-0500 Body weight 109.88 kg Chris Luong KT-Xjyewwfmg-Cio ffi eld [address] Work Phone: 03-03-2019 13:16-0500 BP Diastolic 80 mm[Hg] Chris Luong [place]-Qciujweri-Ezf ffi eld [address] Work Phone: Comment on above: Location: LUE; Position: Sitting 03-03-2019 13:16-0500 BP Systolic 118 mm[Hg] Chris Luong SQ-Qhspzjbhi-Vxb ffi eld [address] Work Phone: Comment on above: Location: LUE; Position: Sitting 03-03-2019 13:16-0500 BSA (Body Surface Area) 2.45 m2 Chris Luong XO-Fqozxelbf-Yuoajs eld 201 Work Phone: 03-03-2019 13:16-0500 Height 198.12 cm Chris Luong QE-Pdfnctluz-Aak ffi eld 201 Work Phone: 03-03-2019 13:16-0500 Pulse (Heart Rate) 81 /min Chris Luong [facility] Sheff[facility] [address] Work Phone: 03-03-2019 13:16-0500 Pulse Oximetry 96 % Chris Luong [facility]-She ffi eld [address] Work Phone: Comment on above: Source: RA Encounters Encounter Date Encounter Type Care Provider Facility Start: 01-07-2025 ambulatory RADHA Chambers ity:[facility] Start: 12-31-2024 End: 12-31-2024 ambulatory SHUKRI VILCHIS [facility] Start: 12-29-2024 End: 12-29-2024 Refill Shivani Adams NP Work Phone: [facility] Comment on above: Acquired hypothyroid ism Start: 12-25-2024 End: 12-25-2024 Bamboo flowsheet Shivani Adams NP Work Phone: [facility] Start: 12-25-2024 End: 12-25-2024 Bamboo flowsheet Shivani Adams RN PAIN MANAGEMENT Work Phone: [facility] Start: 12-25-2024 End: 12-25-2024 Office outpatient visit 25 minutes Shivani Adams RN PAIN MANAGEMENT Work Phone: [facility] Comment on above: Muscle cramps (Prima ry Dx); Acquired hypothyroidism ; Hypocalcemia; Stage 3b chronic kidney disease ([facility]) Start: 12-25-2024 End: 12-25-2024 ambulatory SHIVANI ADAMS Not Available Start: 12-15-2024 End: 12-16-2024 Clinisync Result Encounter Generic External Data Provider [facility] External Department Unsolicited Start: 12-15-2024 End: 12-16-2024 Clinisync Result Encounter Generic External Data Provider [facility] External Department Unsolicited Start: 12-15-2024 End: 12-16-2024 Telephone encounter Abby Bernstein APRN.ORDER PACKER Work Phone: Neurology Comment on above: Received Outside Med ical Records Start: 12-15-2024 End: 12-15-2024 ambulatory ABBY BERNSTEIN Facility:[facility] Start: 12-14-2024 End: 12-14-2024 ambulatory Abby Bernstein APRN.ORDER PACKER Work Phone: Neurology Comment on above: Test results Start: 12-11-2024 End: 12-11-2024 E-mail encounter from caregiver Abby Bernstein APRN.ORDER PACKER Work Phone: Neurology Start: 12-11-2024 End: 12-11-2024 Follow-up encounter Abby Bernstein APRN.ORDER PACKER Work Phone: Neurology Comment on above: Follow up Start: 11-12-2024 ambulatory [facility] Start: 11-10-2024 End: 11-10-2024 Patient encounter procedure Abby Bernstein APRN.ORDER PACKER Work Phone: Neurology Comment on above: Orthostatic lighthea dedness (Primary Dx); Ptosis of right eyelid; Hoarseness of voice; Disturbance of skin sensation; Abnormality of gait and mobility; Falls frequently; Orthostatic hypotension; Voice disturbance Start: 11-10-2024 End: 11-10-2024 ambulatory MARÍA PEARL Facility:[facility] Start: 10-29-2024 End: 10-29-2024 Bamboo flowsheet Lalito Burris DO Work Phone: [facility] KARLA IVYSALIMA Start: 10-29-2024 End: 10-29-2024 Bamboo flowsheet Lalito Burris DO Work Phone: [facility] KARLA JERRY Start: 10-29-2024 End: 10-29-2024 Office outpatient visit 15 minutes Lalito Burris DO Work Phone: [facility] KARLA EDWARDS Comment on above: Nasal septal deviati on (Primary Dx); Chronic maxillary sinusitis; OAF (sonny-antral fistula) Start: 10-29-2024 End: 10-29-2024 ambulatory LALITO BURRIS Not Available Start: 10-15-2024 End: 10-15-2024 Postop follow up visit related to original px Lalito Burris DO Work Phone: [facility] KARLA EDWARDS Comment on above: Nasal septal deviati on (Primary Dx); Chronic maxillary sinusitis Start: 10-15-2024 End: 10-15-2024 ambulatory LALITO BURRIS Not Available Start: 10-15-2024 End: 10-15-2024 Bamboo flowsheet Lalito Burris DO Work Phone: [facility] KARLA IVYSALIMA Start: 10-15-2024 End: 10-15-2024 Bamboo flowsheet Lalito Burris DO Work Phone: [facility] ACOSTA CATASALIMA Start: 10-07-2024 End: 10-07-2024 Admission to same day surgery center Lalito Burris [facility] Start: 10-07-2024 End: 10-07-2024 ambulatory Lalito Burris Facility:[facility] Start: 10-01-2024 ambulatory YANDEL SHEN [facility] Start: 09-25-2024 End: 09-25-2024 ambulatory Lalito Burris Facility:[facility] Start: 09-25-2024 End: 09-25-2024 Patient encounter procedure Lalito Burris [facility] Start: 09-22-2024 End: 09-22-2024 Office outpatient visit 25 minutes Lalito Burris DO Work Phone: DEVIN EDWARDS Comment on above: Nasal septal deviati on (Primary Dx); Acute non-recurrent maxillary sinusitis; OAF (sonny-antral fistula) Start: 09-22-2024 End: 09-22-2024 ambulatory LALITO BURRIS Not Available Start: 09-22-2024 End: 09-22-2024 Bamboo flowsheet Lalito Burris DO Work Phone: [facility] ED[facility]DS Start: 09-22-2024 End: 09-22-2024 Bamboo flowsheet Lalito Burris DO Work Phone: [facility] EDWARDS Start: 09-08-2024 End: 09-08-2024 Office outpatient [...] flowsheet Lalito Burris DO Work Phone: DEVIN MARYK Start: 09-02-2024 End: 09-02-2024 Office outpatient visit 15 minutes Shivani Adams RN PAIN MANAGEMENT Work Phone: [facility] Comment on above: Acute non-recurrent maxillary sinusitis (Primary Dx) Start: 09-02-2024 End: 09-02-2024 ambulatory SHIVANI ADAMS Not Available Start: 09-02-2024 End: 09-02-2024 Bamboo flowsheet Shivani Adams RN PAIN MANAGEMENT Work Phone: [facility] Start: 09-02-2024 End: 09-02-2024 Bamboo flowsheet Shivani Adams RN PAIN MANAGEMENT Work Phone: [facility] Start: 09-02-2024 End: 09-02-2024 Clinisync Result Encounter Generic External Data Provider [facility] External Department Unsolicited Start: 08-31-2024 ambulatory [facility] Start: 08-21-2024 End: 08-21-2024 Office outpatient [...] flowsheet Shashi Pina DO Work Phone: KYLE GERRI Start: 08-19-2024 End: 08-19-2024 Office outpatient visit 25 minutes Shashi Pina DO Work Phone: K[facility] TALLEY Comment on above: Cranial neuropathy ( Primary Dx); Weakness Start: 08-19-2024 End: 08-19-2024 ambulatory SHASHI PINA Not Available Start: 08-17-2024 ambulatory L[facility] Start: 08-10-2024 End: 08-10-2024 Bamboo flowsheet Latoya Redding MD Work Phone: [facility] Start: 08-10-2024 End: 08-10-2024 Bamboo flowsheet Latoya Redding MD Work Phone: [facility] Start: 08-10-2024 End: 08-10-2024 Office outpatient visit 40 minutes Latoya Redding MD Work Phone: [facility] Comment on above: Low serum parathyroi [...] Start: 07-14-2024 End: 07-14-2024 ambulatory SHASHI PINA [facility] Start: 07-06-2024 End: 07-06-2024 Office outpatient new 45 minutes Latoya Redding MD Work Phone: [facility] Comment on above: Postsurgical hypopar athyroidism [...] 06-10-2024 End: 06-10-2024 Orders Only Shivani Adams RN PAIN MANAGEMENT Work Phone: [facility] Comment on above: Acquired hypothyroid ism (CMS/HCC) Start: 06-09-2024 End: 06-09-2024 Bamboo flowsheet Eleonora Leo RN PAIN MANAGEMENT Work Phone: [facility] Start: 06-09-2024 End: 06-09-2024 Bamboo flowsheet Eleonora Amita Leo RN PAIN MANAGEMENT Work Phone: [facility] Start: 06-09-2024 End: 06-09-2024 Patient encounter procedure Eleonora Leo RN PAIN MANAGEMENT Work Phone: [facility] Comment on above: Restless legs syndro me (Primary Dx); POTS (postural orthostatic tachycardia syndrome); Aneurysm of ascending aorta without rupture (CMS/HCC); Arteriosclerosis of coronary artery (CMS/HCC); Paroxysmal atrial fibrillation (CMS/HCC); Coronary artery disease involving [place] heart, unspecified vessel or lesion type, unspecified [...] ism (CMS/HCC) Start: 04-28-2024 ambulatory YANDEL SHEN [facility] Start: 04-23-2024 End: 04-23-2024 Orders Only Radha Burris MD Work Phone: [facility] Comment on above: Restless leg (Primar y Dx) Start: 04-10-2024 Evaluation and manag ement of inpatient [facility] Start: 04-10-2024 Evaluation and manag ement of inpatient [facility] Start: 04-09-2024 Evaluation and manag ement of inpatient [facility] Start: 04-08-2024 [facility] Start: 04-08-[facility]24 Emergency department patient visit MARGO FELIZ [facility] Start: 04-08-2024 End: 04-10-2024 Evaluation and management of inpatient EDDI HARRISON [facility] Start: 04-08-2024 End: 04-08-2024 ambulatory [facility] Start: 03-16-2024 End: 03-16-2024 Clinisync Result Encounter Generic External Data Provider [facility] External Department Unsolicited Start: 03-16-2024 End: 03-16-2024 Clinisync Result Encounter Generic External Data Provider [facility] External Department Unsolicited Start: 03-11-2024 End: 03-11-2024 ambulatory [facility] Start: 03-03-2024 End: 03-03-2024 Encounter identifier Donn Starkook Work Phone: [facility] Start: 03-03-2024 ambulatory Donn Ashish Tejadak [facility] Start: 02-26-2024 End: 02-26-2024 ambulatory [facility] Start: 02-10-2024 End: 02-10-2024 Telephone encounter Radha Burris MD Work Phone: [facility] Comment on above: Dermatitis (Primary Dx) Start: 02-06-2024 End: 02-06-2024 Bamboo flowsheet Radah Burris MD Work Phone: [facility] [...] angina (CMS/HCC) Start: 02-04-2024 End: 02-04-2024 ambulatory [facility] Start: 01-29-2024 Evaluation and manag ement of inpatient [facility] Start: 01-29-2024 Evaluation and manag ement of inpatient [facility] Start: 01-28-2024 Evaluation and manag ement of inpatient [facility] Start: 01-28-2024 Evaluation and manag ement of inpatient [facility] Start: 01-27-2024 Evaluation and manag ement of inpatient [facility]ILB[facility] Start: 01-27-2024 End: 01-30-2024 Evaluation and management of inpatient [facility] Start: 01-20-2024 End: 01-20-2024 Office outpatient visit 15 minutes Sofia Vigil RN PAIN MANAGEMENT Work Phone: [facility] Comment on above: Irritant contact armando matitis due to other agents (Primary Dx) Start: 01-20-2024 End: 01-20-2024 ambulatory SOFIA VIGIL Not Available Start: 01-13-2024 End: 01-13-2024 Bamboo flowsheet Shivani Adams RN PAIN MANAGEMENT Work Phone: [facility] Start: 01-13-2024 End: 01-13-2024 Bamboo flowsheet Shivani Adams RN PAIN MANAGEMENT Work Phone: [facility] Start: 01-13-2024 End: 01-13-2024 Office outpatient visit 15 minutes Shivani Adams RN PAIN MANAGEMENT Work Phone: [facility] Comment on above: Dermatitis (Primary Dx); Chronic kidney disease, stage 3a (HCC) (CMS/HCC); Atherosclerosis of aorta (CMS/HCC); Thoracic aortic ectasia (CMS/HCC) Start: 01-13-2024 End: 01-13-2024 ambulatory SHIVANI ADAMS Not Available Start: 01-06-2024 End: 01-06-2024 Encounter identifier Donn Ceballos Work Phone: [facility] Start: 01-02-2024 End: 01-02-2024 Office outpatient visit 25 minutes Donn Ceballos Work Phone: [facility] Start: 12-24-2023 End: 12-24-2023 Bamboo flowsheet Radha Burris MD Work Phone: [facility] Start: 12-24-2023 End: 12-24-2023 Bamboo flowsheet Radha Burris MD Work Phone: [facility] Start: 12-24-2023 End: 12-24-2023 Office outpatient visit 15 minutes Radha Burris MD Work Phone: [facility] Comment on above: Diarrhea, unspecifie d type (Primary Dx); Autonomic dysfunction; Angina at rest (CMS/HCC) Start: 09-01-2023 Letter encounter Radha cantu MD Work Phone: [facility] Start: 06-10-2023 End: 06-10-2023 ambulatory Radha Burris Facility:[facility] Start: 06-10-2023 End: 06-10-2023 ambulatory MD Radha Burris Work Phone: [facility] Work Phone: Start: 06-10-2023 End: 06-10-2023 Patient encounter procedure MD Radha Burris Work Phone: [facility] [place] Work Phone: Start: 05-31-2023 Clinisync Result Encounter Gen omari External Data Provider [facility] External Department Unsolicited Start: 05-31-2023 Clinisync Result Encounter Gen omari External Data Provider [facility] External Department Unsolicited Start: 05-31-2023 End: 05-31-2023 ambulatory María Pearl APRN.ORDER PACKER Work Phone: Neurology Comment on above: Orthostatic hypotens ion (Primary Dx); [place]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 Start: 05-30-2023 End: 05-30-2023 ambulatory Imad Asaad Other [facility] Other Start: 05-30-2023 Telephone encounter Imad Asaad [facility] Start: 05-26-2023 Letter encounter Radha cantu MD Work Phone: [facility] Start: 05-20-2023 End: 05-20-2023 ambulatory Imad Asaad Other [facility] Other Start: 05-20-2023 Telephone encounter Imad Asaad [facility] Start: 04-26-2023 End: 04-26-2023 ambulatory Imad Asaad Other [facility] Other Start: 04-26-2023 Telephone encounter Imad Asaad [facility] Start: 04-24-2023 End: 04-24-2023 ambulatory Imad Asaad Other [facility] Other Start: 04-24-2023 Telephone encounter Imad Asaad [facility] Start: 04-16-2023 End: 04-16-2023 ambulatory Radha Burris Facility:[facility] Start: 04-16-2023 End: 04-16-2023 Admission to same day surgery center MD Radha Burris Work Phone: [facility] Work Phone: Start: 04-16-2023 End: 04-16-2023 ambulatory MD Radha Burris Work Phone: [facility] Work Phone: Start: 04-09-2023 End: 04-09-2023 ambulatory Imad Asaad Other [facility] Other Start: 04-09-2023 Telephone encounter Imad Asaad [facility] Start: 04-01-2023 End: 04-01-2023 ambulatory Imad Asaad Other [facility] Other Start: 04-01-2023 Telephone encounter Imad Asaad [facility] Start: 03-21-2023 End: 03-21-2023 Office outpatient visit 15 minutes Donn Ceballos Work Phone: [facility] Start: 03-20-2023 End: 03-20-2023 ambulatory Imad Asaad Other [facility] Other Start: 03-20-2023 Office outpatient ne w 45 minutes Imad Asaad [facility] Start: 03-20-2023 End: 03-20-2023 Patient encounter procedure MD Radha Burris Work Phone: [facility] Work Phone: Start: 02-25-2023 End: 02-25-2023 ambulatory Skin Biopsy Work Phone: Neurology Start: 02-25-2023 End: 02-25-2023 Patient encounter procedure Skin Biopsy Work Phone: [facility] Start: 02-05-2023 Telephone encounter María Zhao on SALES PROJECT COORDINATOR.ORDER PACKER Work Phone: Neurology Comment on above: Results (Gerri teran ) Start: 02-01-2023 End: 02-02-2023 ambulatory RADHA BURRIS [facility] Start: 02-01-2023 End: 02-01-2023 Subsequent hospital visit by physician Winifred Baker [facility] Comment on above: Left lower quadrant abdominal pain Start: 02-01-2023 End: 02-01-2023 ambulatory [facility] Start: 01-31-2023 End: 02-01-2023 ambulatory [facility] Ambulatory Start: 01-31-2023 End: 01-31-2023 Office outpatient visit 25 minutes Yossi Chen MD Work Phone: [facility] Comment on above: Diarrhea, unspecifie d type (Primary Dx); Left lower quadrant abdominal pain Start: 01-28-2023 ambulatory María Pearl SALES PROJECT COORDINATOR.ORDER PACKER Work Phone: Neurology Comment on above: Tilt Start: 01-28-2023 E-mail encounter tobias tolbert caregiver María Pearl SALES PROJECT COORDINATOR.ORDER PACKER Work Phone: [facility] Start: 01-28-2023 Telephone encounter María ellis SALES PROJECT COORDINATOR.ORDER PACKER Work Phone: Neurology Comment on above: Results ([facility] ) Start: 01-26-2023 ambulatory María Pearl SALES PROJECT COORDINATOR.ORDER PACKER Work Phone: Neurology Comment on above: Test results Start: 12-31-2022 End: 12-31-2022 Patient encounter procedure Kassie Richardson SALES PROJECT COORDINATOR.ORDER PACKER Work Phone: Neurology Comment on above: Autonomic dysfunctio n (Primary Dx); Dizzy spells Start: 12-13-2022 Postop follow up vis it related to original px Radha Burris Work Phone: [facility] DO Work Phone: Start: 12-13-[address] Yossi Chambers ity:[id number] Start: 12-10-2022 Chart Update Radha xavier Work Phone: [facility] DO Work Phone: Start: 11-29-2022 Postop follow up vis it related to original px Radha Burris Work Phone: [facility] DO Work Phone: Start: 11-29-[address] Yossi Chambers ity:[id number] Start: 11-22-2022 End: 11-22-2022 Evaluation and management of inpatient Dr. Yossi Chen Facility:[id number] Start: 11-16-2022 Telephone encounter Kassie Puentes SALES PROJECT COORDINATOR.ORDER PACKER Work Phone: Neurology Comment on above: Received Outside Med ical Records () Start: 11-12-[address] Yossi Chambers ity:[id number] Start: 10-29-2022 AUDIT Radha xavier Work Phone: [facility]Fhpfxvkfsjjdyr-Esvfx an Work Phone: Start: 10-26-[address] Arabella Butt Facility:[id number] Start: 10-19-2022 ambulatory Kassie gregg SALES PROJECT COORDINATOR.ORDER PACKER Work Phone: Neurology Comment on above: Reaction Start: 10-18-2022 End: 10-18-2022 ambulatory Infusion Main Chair 3 Work Phone: Neurology Comment on above: Chronic migraine wit hout aura, with intractable migraine, so stated, with status migrainosus (Primary Dx) Start: 10-15-2022 End: 10-15-[address] 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 Arabella Butt Facility:[id number] Start: 10-10-2022 Encounter for preprocedural cardiovascular examination Dr. Arabella Butt [facility] Start: 10-09-2022 AUDIT Radha xavier Work Phone: [facility] Work Phone: Start: 10-08-2022 Rx Renewal Radha xavier Work Phone: FU-Amlfogwtsncnuw-Bmwna in [facility] 4100 Work Phone: Start: 09-25-2022 Office outpatient vi sit 25 minutes Radha Burris Work Phone: HI-Ziminapdliucja-Graiq an Work Phone: Start: 09-25-2022 [facility], Provider : Ruby Daily, Status: Pen, Time: 2:30 PM Radha Burris Work Phone: [facility] 4851 Work Phone: Start: 09-25-[address] Ruby Daily Facility:[facility] Start: 09-24-2022 Office outpatient vi sit 10 minutes Radha Burris Work Phone: [facility] 6565 Work Phone: Start: 09-24-[address] Ranjana Perrin Facility:[id number] Start: 09-13-2022 End: 09-13-[address] Ruby Daily Facility:[facility] Start: 09-04-2022 Office outpatient vi sit 40 minutes Radha Burris Work Phone: VP-Inxzdvqpkxmyrn-Zwwom an Work Phone: Start: 09-04-[address] Ruby Daily Facility:[facility] Start: 08-30-2022 End: 08-30-[address] 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 Radha Burris Facility[facility] Start: 08-17-2022 Current tobacco non- user cad cap copd pv dm Radha Burris Work Phone: GF-Dkobzogwclvabc-Hvhbb MAC1 302 Work Phone: Start: 08-17-[address] Arabella Butt Facility:[id number] Start: 08-13-[address] Radha Burris Facility:[id number] Start: 08-13-2022 Patient encounter procedure Radha Burris [facility] [address] [place] Work Phone: Start: 08-10-[address] Ruby Daily Facility:[id number] Start: 07-31-2022 Office outpatient vi sit 40 minutes Radha Burris Work Phone: US-Yiixlhvtlomfdr-Hgejh an Work Phone: Start: 07-31-2022 Patient encounter procedure Radha Burris Work Phone: DW-Miezfaoqjykwlz-Pbbcg an Work Phone: Start: 07-31-2022 JAYLON, Provider : Ruby Daily, Status: Pen, Time: 12:30 PM Radha Burris [facility] [address] [place] Work Phone: Start: 07-31-[address] Ruby Daily Facility:[id number] Start: 07-30-[address] Radha Burris Facility:[id number] Start: 07-30-2022 Patient encounter procedure Radha Burris [facility] [address] [place] Work Phone: Start: 07-29-2022 ambulatory Kassie Satish gregg SALES PROJECT COORDINATOR.ORDER PACKER Work Phone: Neurology Comment on above: After effects Start: 07-26-2022 End: 07-26-2022 ambulatory Infusion Main Chair 3 Work Phone: Neurology Comment on above: Chronic migraine wit hout aura, with intractable migraine, so stated, with status migrainosus (Primary Dx) Start: 07-21-2022 ambulatory Kassie J Dorenew ski SALES PROJECT COORDINATOR.ORDER PACKER Work Phone: Neurology Comment on above: What's next? Start: 07-18-[address] Ranjana Perrin Facility:[id number] Start: 07-17-2022 Office outpatient vi sit 25 minutes Radha Burris Work Phone: RH-Ciuswscsabbwah-Fatbg an Voice Work Phone: Start: 07-17-2022 Patient encounter procedure Radha Burris Work Phone: XT-Oyjngokpbrgqht-Wpwtt in [facility] 4100 Work Phone: Start: 07-17-[address] Ranjana Perrin Facility:[id number] Start: 07-11-2022 ambulatory Kassie gregg SALES PROJECT COORDINATOR.ORDER PACKER Work Phone: Neurology Comment on above: Test results Start: 06-04-2022 End: 06-05-[address] AISHWARYA SWAIN Facility:H1 Start: 05-31-2022 ambulatory Kassie gregg SALES PROJECT COORDINATOR.ORDER PACKER Work Phone: Neurology Comment on above: Today's visit Start: 05-31-2022 E-mail encounter fro m caregiver Kassie Richardson APRN.ORDER PACKER Work Phone: [facility] Start: 05-31-2022 End: 05-31-2022 Patient encounter procedure Kassie Richardson APRN.ORDER PACKER Work Phone: Neurology Comment on above: Chronic migraine wit hout aura, intractable, without status migrainosus (Primary Dx); Aphasia; Other specified transient cerebral ischemias Start: 05-29-2022 Letter encounter Radha cantu MD [facility]: [facility] Start: 03-22-2022 End: 03-23-2022 ambulatory YANDEL SHEN Facility:H1 Start: 02-05-2022 End: 02-06-[address] MONO CHRISTIE Facility:H1 Start: 01-09-2022 End: 01-09-[address] LEXI SINGH Facility:H1 Start: 01-01-2022 End: 01-05-2022 Evaluation and management of inpatient JANET FORD [facility] Start: 12-31-2021 End: 01-05-2022 Evaluation and management of inpatient John Saul MD Work Phone: [email or web address] Renal//Med Surg Comment on above: Acute pancreatitis, unspecified complication status, unspecified pancreatitis type (Primary Dx); Gall stone pancreatitis; EMELIA (acute kidney injury) (HCC) Start: 12-31-2021 End: 01-01-[address] RADHA BURRIS Facility:H1 Start: 12-30-2021 End: 12-31-[address] MAYELIN RODRIGUEZ Facility:H1 Start: 12-29-2021 End: 12-29-[address] VERONICA YOUNG Facility:H1 Start: 12-12-2021 End: 12-13-2021 Evaluation and management of inpatient RADHA BURRIS Facility:[facility] Start: 12-08-2021 End: 12-09-2021 ambulatory YANDEL SHEN Facility:H1 Start: 11-23-2021 Encounter for preprocedural laboratory examination DR MONO CHRISTIE [facility] Start: 11-21-2021 End: 11-22-2021 ambulatory RADHA BURRIS Facility:[facility] Start: 11-17-2021 End: 11-18-[address] MONO CHRISTIE Facility:H1 Start: 11-17-2021 End: 11-18-2021 Encounter for preprocedural laboratory examination DR MONO CHRISTIE Facility:H1 Start: 11-16-2021 End: 11-16-[address] RADHA BURRIS Facility:H1 Start: 11-09-2021 End: 11-10-2021 ambulatory RADHA BURRIS Facility:[facility] Start: 10-03-2021 End: 10-03-[address] Donnell Du Facility:H1 Start: 10-03-2021 End: 10-04-2021 ambulatory YANDEL SHEN Facility:H1 Start: 10-02-2021 End: 10-02-2021 ambulatory Thor Fox Other [facility] Other Start: 10-02-2021 Office outpatient vi sit 15 minutes Thor Ruddy [facility] Start: 09-27-2021 End: 09-28-2021 ambulatory YANDEL SHEN Facility:H1 Start: 08-30-2021 End: 08-30-2021 ambulatory Lashawn Estrada Other [facility] Other Start: 08-30-2021 Office outpatient vi sit 15 minutes Lashawn Estrada [facility] Start: 08-15-2021 (Procedure) Short Thor Fox [facility] Start: 08-15-2021 End: 08-15-2021 ambulatory Thor Ruddy Other [facility] Other Start: 08-03-2021 End: 08-03-2021 ambulatory Thor Ruddy Other [facility] Other Start: 08-03-2021 Office outpatient vi sit 25 minutes Thor Ruddy [facility] Start: 07-27-2021 (Procedure) [place] Thor Fox [facility] Start: 07-27-2021 End: 07-27-2021 ambulatory Thor Ruddy Other [facility] Other Start: 07-18-2021 (Procedure) [place] Thor Fox [facility] Start: 07-18-2021 End: 07-18-2021 ambulatory Thor Ruddy Other [facility] Other Start: 07-03-2021 End: 07-03-2021 Office outpatient visit 15 minutes Donn L Kerkhoven [facility] Start: 06-21-2021 End: 06-21-2021 Office outpatient new 30 minutes [facility] L [facility]oven [facility] Start: 05-01-2021 End: 01-10-2022 Subsequent hospital visit by physician [facility] (I-Stat) Work Phone: Radiology Comment on above: Shortness of breath [R06.02] Start: 03-11-2020 End: 03-12-2020 Patient encounter procedure [facility] Start: 03-11-2020 End: 03-11-2020 Subsequent hospital visit by physician Rupinder Infusion Bed 3 [facility] INFUSION Comment on above: Arrived Start: 02-10-2020 End: 02-10-2020 ambulatory UNKNOWN PROVIDER Facility:[facility] Start: 10-20-2019 Patient encounter procedure Terrell Her ZY-Xmkkqgpkjvgrqi-Ovfpt in [facility] 4100 Work Phone: Start: 09-29-2019 Patient encounter procedure Terrell Her HE-Fglylpbclatqvc-Viwtx in [facility] 4100 Work Phone: Start: 09-28-2019 Patient encounter procedure Terrell Her KC-Hgrgqzwgngnyfw-Ktnym in [facility] 4100 Work Phone: Start: 09-21-2019 Patient encounter procedure Terrell Her AW-Ofhxlsbbfezdkx-Sdozv in [facility] 4100 Work Phone: Start: 09-17-2019 Patient encounter procedure Terrell Her [facility] Work Phone: Start: 09-10-2019 Patient encounter procedure Terrell Her [facility] Work Phone: Start: 06-29-2019 Patient encounter procedure Terrell Her [facility] Work Phone: Start: 03-03-2019 Patient encounter procedure Terrell Her [facility] Work Phone: Start: 04-28-2018 Patient encounter procedure [...] Provider Start: 04-08-2024 Follow-up visit Follow-up SHUKRI VILCHIS Start: 03-18-2024 Colonoscopy Radha Burris MD Work [...] 01-05-2022 Basic metabolic panel calcium total Dariela Fraser MD Work Phone: Start: 01-04-2022 Blood count complete auto&auto difrntl wbc Dariela Fraser MD Work Phone: Start: 01-04-2022 BASIC METABOLIC [...] Us retroperitoneal real time w/image limited Dariela Fraser MD Work Phone: Start: 01-02-2022 Assay of lipase Shane Jacy Villalpando DO Work Phone: Start: 01-02-2022 BASIC METABOLIC PANEL W/ REFLEX TO MG FOR LOW K Shane T Villalpando DO Work Phone: Start: 01-02-2022 Hepatic function panel Shane Jacy Portillois DO Work Phone: Start: 01-02-2022 LACTATE, SEPSIS Shane T Villalpando DO Work Phone: Start: 01-01-2022 LACTATE, SEPSIS Shane T Villalpando DO Work Phone: Start: 01-01-2022 LACTATE, SEPSIS Shane T Villalpando DO Work Phone: Start: 01-01-2022 Assay of troponin quantitative Noheliavanesa Morris SALES PROJECT COORDINATOR - ORDER PACKER Work Phone: Start: 01-01-2022 LACTATE, SEPSIS Shane T Villalpando DO Work Phone: Start: 01-01-2022 Mri abdomen w/o contrast material Janet Ford SALES PROJECT COORDINATOR - ORDER PACKER Work Phone: Start: 01-01-2022 Assay of troponin quantitative Nohelia Ma jacqueline Ivondiandra SALES PROJECT COORDINATOR - ORDER PACKER Work Phone: Start: 01-01-2022 Blood count complete [...] - Serum or Plasma María Maria R SALES PROJECT COORDINATOR.ORDER PACKER Work Phone: Start: 01-01-2022 Assay of troponin quantitative Nohelia Morris SALES PROJECT COORDINATOR - ORDER PACKER Work Phone: Start: 01-01-2022 Assay of troponin quantitative Nohelia Morris SALES PROJECT COORDINATOR - ORDER PACKER Work Phone: Start: 01-01-2022 LACTATE, SEPSIS Shane Villalpando DO Work Phone: Start: 01-01-2022 Culture bacterial blood aerobic w/id isolates Nohelia Morris SALES PROJECT COORDINATOR - ORDER PACKER Work Phone: Start: 01-01-2022 CULTURE, BLOOD 1 Nohelia Morris SALES PROJECT COORDINATOR - ORDER PACKER Work Phone: Start: 12-12-2021 Antibody screen RADHA BURRIS Comment on above: Performed By: #### [id number] #### [address] Start: 06-21-2021 End: 06-21-2021 Radex spine [...] Radha Burris Work Phone: Cervical arthrodesis Chrisquita Abdikh Cholecystectomy Lalito benitez Colonoscopy Radha cantu Work Phone: Colonoscopy Lalito Burris Destructive procedure Lalito tillman Esophageal hiatus hernia repair Radha Burris Work Phone: Esophagogastroduodenoscopy J luis miguel Burris Work Phone: Fusion of joint of c ervical spine with internal fixation by anterior approach Lalito Burris History of operative procedure on knee Thorshu Fox Other History of thyroidectomy She felton Fox Other History of thyroidectomy Status post total thyroidectomy MD Radha Burris Work Phone: Implantation of cardiac pacemaker Lalito Burris Implantation of inse rtable loop recorder Radha Burris Work Phone: Laminectomy Radha Ramires pepe Work Phone: Laparoscopic cholecystectomy Radha Ramiresan Work Phone: Operative procedure on knee Chris Luong Operative procedure on uterus AND/OR cervix Radha Burris Work Phone: Retinal detachment of left eye Lalito Burris Thyroidectomy Lalito Romero jordi Tonsillectomy Radha Collinsjordi xavier Work Phone: Tonsillectomy Lalito Romero jordi Total thyroidectomy Radha Ramiresan Work Phone: 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) Lalito tillman Comment on above: 2022 Plan of Treatment Date Care Activity Detail Author Start: 03-18-2034 Screening for malignant neoplasm of colon [facility] Start: 04-16-2033 Screening for malignant neoplasm of colon [facility] Start: 2028 RSV Vaccine (1 - 1-dose 75+ series) RSV Vaccine (1 - 1-dose 75+ series) [facility] Start: 04-10-2027 Diabetes Screening Diabetes Screenin [facility] Start: 01-01-2027 Lipid panel [facility] Start: 03-05-2026 Diabetes Screening Diabetes Screenin [facility] Start: 01-31-2026 Diabetes Screening Diabetes Screenin [facility] Start: 11-21-2025 DIABETES SCREEN DIABETES SCREEN [facility] Start: 11-21-2025 Diabetes Screening Diabetes Screenin [facility] Start: 06-09-2025 Medicare Annual Wellness (AWV) Medicare Annual Wellness (AWV) [facility] Healthcare Start: 02-13-2026 Pneumococcal Vaccine : 65+ Years (1 of 2 - PCV) Pneumococcal Vaccine: 65+ Years (1 of 2 - PCV) [facility] Comment on above: Postponed from 05/21 (Patient Refused) Postponed from 05/21 (Patient Refused) Start: 04-10-2025 Creatinine measurement Serum Creatin ine [facility] Start: 04-08-2025 Complete blood count Hemoglobin/Constantino tocrit [facility] Start: 02-11-2025 End: 02-11-2025 Patient encounter procedure 02/11/2025 11:45 AM EDT Office Visit Neurology [address] [place] [address] Abby Bernstein APRN.ORDER PACKER [address] [place] [address] Follow up Neurology Comment on above: Follow up Start: 02-08-2025 End: 02-08-2025 Patient encounter procedure [facility] Start: 01-14-2025 End: 01-14-2025 Patient encounter procedure 01/14/2025 10:20 AM EDT Office Visit [facility] [address] [place] [address] Radha Burris MD [address] [place], [place] [address] [facility] Start: 01-04-2025 End: 01-04-2025 Patient encounter procedure 01/04/2025 3:00 PM EDT Office Visit Neurological [facility] [address] [place] [address] Sheldon Hudson MD [address] [place] [address] Orthostatic lightheadedness [R42]; Disturbance of skin sensation [R20.9]; Abnormality of gait and mobility [R26.9]; Falls frequently [R29.6]; Orthostatic hypotension [I95.1] [facility] Comment on above: Orthostatic lighthea dedness [R42]; Disturbance of skin sensation [R20.9]; Abnormality of gait and mobility [R26.9]; Falls frequently [R29.6]; Orthostatic hypotension [I95.1] Start: 12-25-2024 End: 12-25-2025 Comprehensive metabolic 2000 panel - Serum or Plasma Comprehensive metabolic panel Lab Routine Muscle cramps Hypocalcemia Stage 3b chronic kidney disease ([facility]-H[facility]) Expected: 12/25/2024 (Approximate), Expires: 12/25/2025 [facility] Work Phone: Comment on above: Expected: 12/25/2024 (Approximate), Expires: 12/25/2025 Start: 12-25-2024 End: 12-25-2025 Magnesium [Mass/volume] in Serum or Plasma Magnesium Lab Routine Muscle cramps Expected: 12/25/2024 (Approximate), Expires: 12/25/2025 [facility] Comment on above: Expected: 12/25/2024 (Approximate), Expires: 12/25/2025 Start: 12-25-2024 End: 12-25-2025 TSH W/REFLEX TO FT4 TSH W/REFLEX TO FT4 Lab Routine Muscle cramps Acquired hypothyroidism Expected: 12/25/2024 (Approximate), Expires: 12/25/2025 [facility] Comment on above: Expected: 12/25/2024 (Approximate), Expires: 12/25/2025 Start: 12-25-2024 End: 12-25-2024 Patient encounter procedure 12/25/2024 9:00 AM EDT Office Visit [facility] [address] [place] [address] Shivani Adams NP [address] [place] [address] Arrived [facility] Comment on above: Arrived Start: 12-21-2024 Influenza vaccination [facility] Start: 12-15-2024 End: 12-15-2024 ambulatory 12/15/2024 9:15 AM EDT Results Only [facility] [address] [facility] [place] [address] [place] Start: 12-14-2024 End: 03-15-2025 ACETYLCHOLINE REC BINDING AB ACETYLCHOLINE REC BINDING AB Lab Routine Ptosis of right eyelid Hoarseness of voice Expected: 12/14/2024, Expires: 03/15/2025 [facility] Work Phone: Comment on above: Expected: 12/14/2024 , Expires: 03/15/2025 Start: 12-03-2024 End: 12-03-2024 Patient encounter procedure 12/03/2024 9:00 AM EDT Office Visit [facility] [address] [place] [phone] Shivani May NP [address] [place] [address] [facility] Start: 10-29-2024 End: 10-29-2024 Patient [...] 09/02/2024 3:00 PM EDT Office Visit [facility] [address] [place] [phone] Shivani Adams NP [address] [place] [address] Arrived [facility] Comment on above: Arrived Start: 08-21-2024 End: 08-21-2024 Patient encounter procedure 08/21/2024 2:20 PM EDT Office Visit [facility] [address] [place] [phone] Radha Burris MD [address] [place] [address] Arrived [facility] Comment on above: Arrived Start: 08-19-2024 End: 08-19-2024 Patient encounter procedure [facility] Comment on above: Arrived Start: 08-10-2024 End: 08-10-2025 25-hydroxyvitamin D3 [Mass/volume] in Serum or Plasma Vitamin D 25 hydroxy Total Lab Routine Vitamin D deficiency Expected: 08/10/2024 (Approximate), Expires: 08/10/2025 [facility] Comment on above: Expected: 08/10/2024 (Approximate), Expires: 08/10/2025 Start: 08-10-2024 End: 08-10-2025 Magnesium [Mass/volume] in Serum or Plasma Magnesium Lab Routine Hypocalcemia Expected: 08/10/2024 (Approximate), Expires: 08/10/2025 [facility] Healthcare Work Phone: Comment on above: Expected: 08/10/2024 (Approximate), Expires: 08/10/2025 Start: 08-10-2024 End: 08-10-2025 Renal function panel Renal function panel Lab Routine Low serum parathyroid hormone (PTH) Hypocalcemia Expected: 08/10/2024 (Approximate), Expires: 08/10/2025 [facility] Comment on above: Expected: 08/10/2024 (Approximate), Expires: 08/10/2025 Start: 08-10-2024 End: 08-10-2024 Patient encounter procedure [facility] Comment on above: Arrived Start: 07-30-2024 Influenza vaccination Influenza Vacc ine (#1) [facility] Comment on above: Postponed from 12/21 (Patient Refused) Start: 07-22-2024 End: 06-10-2025 TSH W/REFLEX TO FT4 TSH W/REFLEX TO FT4 Lab Routine Acquired hypothyroidism (CMS/HCC) Expected: 07/22/2024 (Approximate), Expires: 06/10/2025 [facility] Work Phone: Comment on above: Expected: 07/22/2024 (Approximate), Expires: 06/10/2025 Start: 07-21-2024 End: 07-21-2024 Patient encounter procedure 07/21/2024 8:00 AM EDT Office Visit [facility] [address] [place] [address] Shashi Pina DO [address] [place] [address] [facility] Start: 07-06-2024 End: 07-06-2025 25-hydroxyvitamin D3 [Mass/volume] in Serum or Plasma Vitamin D 25 hydroxy Total Lab Routine Vitamin D deficiency Expected: 07/06/2024 (Approximate), Expires: 07/06/2025 [facility] Comment on above: Expected: 07/06/2024 (Approximate), Expires: 07/06/2025 Start: 07-06-2024 End: 07-06-2025 Calcium, urine, 24 hour Calcium, urine, 24 hour Lab Routine Postsurgical hypoparathyroidism (CMS/HCC) Expected: 07/06/2024 (Approximate), Expires: 07/06/2025 [facility] Comment on above: Expected: 07/06/2024 (Approximate), Expires: 07/06/2025 Start: 07-06-2024 End: 07-06-2025 CREATINE, 24 HOUR URINE CREATINE, 24 HOUR URINE Lab Routine Postsurgical hypoparathyroidism (CMS/HCC) Expected: 07/06/2024 (Approximate), Expires: 07/06/2025 [facility] Work Phone: Comment on above: Expected: 07/06/2024 (Approximate), Expires: 07/06/2025 Start: 07-06-2024 End: 07-06-2025 Magnesium [Mass/volume] in Serum or Plasma Magnesium Lab Routine Postsurgical hypoparathyroidism (CMS/HCC) Expected: 07/06/2024 (Approximate), Expires: 07/06/2025 [facility] Comment on above: Expected: 07/06/2024 (Approximate), Expires: 07/06/2025 Start: 07-06-2024 End: 07-06-2025 Parathyrin.intact [Mass/volume] in Serum or Plasma PTH, intact Lab Routine Postsurgical hypoparathyroidism (CMS/HCC) Expected: 07/06/2024 (Approximate), Expires: 07/06/2025 [facility] Comment on above: Expected: 07/06/2024 (Approximate), Expires: 07/06/2025 Start: 07-06-2024 End: 07-06-2025 Renal function panel Renal function panel Lab Routine Postsurgical hypoparathyroidism ([facility]) Expected: 07/06/2024 (Approximate), Expires: 07/06/2025 [facility] Comment on above: Expected: 07/06/2024 (Approximate), Expires: 07/06/2025 Start: 07-06-2024 End: 07-06-2024 Patient encounter procedure 07/06/2024 10:00 AM EDT Office Visit [facility] [address] [place] [address] Latoya Redding MD [address] [place] [address] [facility] Start: 06-22-2024 End: 06-22-2025 Acetylcholine receptor, modulating Acetylcholine receptor, modulating Lab Routine Weakness Expected: 06/22/2024 (Approximate), Expires: 06/22/2025 [facility] Work Phone: Comment on above: Expected: 06/22/2024 (Approximate), Expires: 06/22/2025 Start: 06-22-2024 End: 06-22-2025 MR Brain WO and W contrast IV MR brain w and wo contrast routine Imaging High Priority Cranial neuropathy Expected: 06/22/2024, Expires: 06/22/2025 [facility] Comment on above: Expected: 06/22/2024 , Expires: 06/22/2025 Start: 06-22-2024 End: 06-22-2025 MUSK ANTIBODY TEST MUSK ANTIBODY TEST Lab Routine Weakness Expected: 06/22/2024 (Approximate), Expires: 06/22/2025 [facility] Comment on above: Expected: 06/22/2024 (Approximate), Expires: 06/22/2025 Start: 06-09-2024 End: 06-09-2025 Comprehensive metabolic 2000 panel - Serum or Plasma Comprehensive metabolic panel Lab Routine Essential hypertension (CMS/HCC) Expected: 06/09/2024 (Approximate), Expires: 06/09/2025 [facility] Comment on above: Expected: 06/09/2024 (Approximate), Expires: 06/09/2025 Start: 06-09-2024 End: 06-09-2025 CT Chest for screening WO contrast CT lung screening low dose Imaging Routine History of smoking Expected: 06/09/2024, Expires: 06/09/2025 [facility] Comment on above: Expected: 06/09/2024 , Expires: 06/09/2025 Start: 06-09-2024 End: 06-09-2025 Lipid 1996 panel - Serum or Plasma Lipid panel Lab Routine Arteriosclerosis of coronary artery (CMS/HCC) Expected: 06/09/2024 (Approximate), Expires: 06/09/2025 [facility] Work Phone: Comment on above: Expected: 06/09/2024 (Approximate), Expires: 06/09/2025 Start: 06-09-2024 End: 06-09-2025 TSH W/REFLEX TO FT4 TSH W/REFLEX TO FT4 Lab Routine Acquired hypothyroidism (CMS/HCC) Expected: 06/09/2024 (Approximate), Expires: 06/09/2025 [facility] Comment on above: Expected: 06/09/2024 (Approximate), Expires: 06/09/2025 Start: 06-09-2024 End: 06-09-2024 Patient encounter procedure [facility] Comment on above: Arrived Start: 05-19-2024 End: 05-19-2025 Acetylcholine receptor, binding Acetylcholine receptor, binding Lab Routine Ptosis of both eyelids Expected: 05/19/2024 (Approximate), Expires: 05/19/2025 [facility] Work Phone: Comment on above: Expected: 05/19/2024 (Approximate), Expires: 05/19/2025 Start: 05-19-2024 End: 05-19-2025 Acetylcholine receptor, blocking Acetylcholine receptor, blocking Lab Routine Ptosis of both eyelids Expected: 05/19/2024 (Approximate), Expires: 05/19/2025 [facility] Comment on above: Expected: 05/19/2024 (Approximate), Expires: 05/19/2025 Start: 04-22-2024 Advance Directive Discussion Advance Directive Discussion [facility] Start: 03-10-2024 DIABETES SCREEN DIABETES SCREEN [facility] Start: 03-09-2024 Influenza vaccination Influenza Vacc ine (#1) [facility] Comment on above: Postponed from 12/21 (Patient Refused) Start: 03-05-2024 Complete blood count Hemoglobin/Constantino tocrit [facility] Start: 03-05-2024 Creatinine measurement Serum Creatin ine [facility] Start: 02-06-2024 End: 02-06-2024 Patient encounter procedure 02/06/2024 9:00 AM EDT Office Visit [facility] [address] [place] [phone] Radha Burris MD [address] [place], [place] [id number] Arrived [facility] Comment on above: Arrived Start: 02-01-2024 Creatinine measurement Basic Metabol ic Panel [facility] Start: 02-01-2024 Pneumococcal Vaccine : 65+ Years (1 - PCV) Pneumococcal Vaccine: 65+ Years (1 - PCV) [facility] Comment on above: Postponed from 05/21 (Patient Refused) Start: 02-01-2024 Pneumococcal Vaccine : 65+ Years (1 of 2 - PCV) Pneumococcal Vaccine: 65+ Years (1 of 2 - PCV) [facility] Comment on above: Postponed from 05/21 (Patient Refused) Start: 02-01-2024 Serum Creatinine Serum Creatinine Cl [facility] Start: 01-24-2024 BP Controlled (<130/80) BP Controlled (<130/80) [facility] Start: 01-13-2024 End: 01-13-2024 Patient encounter procedure 01/13/2024 1:30 PM EDT Office Visit [facility] [address] [place] [phone] Shivani Adams NP [address] [place], [place] [phone] Arrived [facility] Comment on above: Arrived Start: 01-06-2024 Cervical Spine MRI w/o contrast, Complete ([id number]), Body Site: Spine, Sent on: [facility] Start: 01-02-2024 MRI Lumbar Spi ne wo Contrast ([id number]), Body Site: MRI Head/Spine/Chest, Sent on: [facility] Start: 01-01-2024 BP CONTROLLED (<130/80) BP CONTROLLED (<130/80) [facility] Start: 12-24-2023 End: 12-24-2023 Patient encounter procedure 12/24/2023 9:30 AM EDT Office Visit [facility] [address] [place] [address] Radha Burris MD [address] [place] [address] Arrived [facility] Comment on above: Arrived Start: 12-22-2023 Covid-19 Vaccine ( season) Covid-19 Vaccine ( season) [facility] Start: 12-22-2023 Influenza vaccination Influenza Vacc ine (#1) [facility] Start: 11-22-2023 SERUM CREATININE SERUM CREATININE Cl [facility] Start: 10-20-2023 Influenza vaccination Influenza Vacc ine (#1) [facility] Healthcare Comment on above: Postponed from 12/21 (Patient Refused) Start: 08-10-2023 Medicare Annual Wellness (AWV) Medicare Annual Wellness (AWV) [facility] Healthcare Start: 05-31-2023 BP CONTROLLED (<130/80) BP CONTROLLED (<130/80) [facility] Start: 05-31-2023 End: 08-30-2023 [place] Work Phone: Comment on above: Expected: 05/31/2023 , Expires: 08/30/2023 Start: 04-22-2023 Advance Directive Discussion Advance Directive Discussion [facility] Start: 04-22-2023 Depression Assessment Depression Ass essment [facility] Start: 04-16-2023 [facility] Start: 03-21-2023 Patient referral Referrals: Ne urology. Diagnostic testing [facility] Start: 02-01-2023 End: 02-01-2023 Patient encounter procedure 02/01/2023 1:[address] [facility] [address] [place] [address] [facility] Start: 01-31-2023 End: 02-07-2023 Bacteria identified in Stool by Culture Stool Culture, Test of Cure Microbiology Routine Diarrhea, unspecified type Expected: 01/31/2023 (Approximate), Expires: 02/07/2023 [facility] Work Phone: Comment on above: Expected: 01/31/2023 (Approximate), Expires: 02/07/2023 Start: 01-31-2023 End: 02-01-2024 Basic metabolic 2000 panel - Serum or Plasma [facility] Work Phone: Comment on above: Expected: 01/31/2023 (Approximate), Expires: 02/01/2024 Start: 01-31-2023 End: 02-01-2024 CT Abdomen and Pelvis W contrast IV CT abdomen pelvis w IV contrast Imaging STAT Left lower quadrant abdominal pain Expected: 01/31/2023, Expires: 02/01/2024 [facility] Work Phone: Comment on above: Expected: 01/31/2023 , Expires: 02/01/2024 Start: 01-31-2023 End: 02-07-2023 Stool Pathogen Panel, PCR Stool Pathogen Panel, PCR Microbiology Routine Diarrhea, unspecified type Expected: 01/31/2023 (Approximate), Expires: 02/07/2023 [facility] Work Phone: Comment on above: Expected: 01/31/2023 (Approximate), Expires: 02/07/2023 Start: 01-27-2023 DTaP/Tdap/Td vaccine (2 - Td or Tdap) DTaP/Tdap/Td vaccine (2 - Td or Tdap) [facility] Start: 01-27-2023 DTaP/Tdap/Td Vaccine s (2 - Td or Tdap) DTaP/Tdap/Td Vaccines (2 - Td or Tdap) [facility] Start: 01-27-2023 Tetanus vaccination Tetanus (T d or Tdap) Booster [facility] Start: 01-27-2023 Urine microalbumin profile [facility] Start: 01-01-2023 Diabetes mellitus screening Diabetes Screening [facility] Start: 01-01-2023 Hemoglobin A1c measurement A1C test (Diabetic or Prediabetic) [facility] Start: 01-01-2023 HEMOGLOBIN/HEMATOCRIT HEMOGLOBIN/HEM ATOCRIT [facility] Start: 01-01-2023 Hepatitis B surface antibody level LDL Cholesterol [facility] Start: 12-21-2022 Covid-19 Vaccine ( season) Covid-19 Vaccine () [facility] Start: 12-21-2022 Influenza vaccination C [facility] Start: 12-13-2022 FUV, Provider: Yossi Chen, Status: Pen, Time: 10:45 AM FUV, Provider: Yossi Chen, Status: Pen, Time: 10:45 AM -[facility] DO Work Phone: Start: 11-12-2022 NPV, Provider: Yossi Chen, Status: Pen, Time: 2:45 PM NPV, Provider: Yossi Chen, Status: Pen, Time: 2:45 PM [facility] Work Phone: Start: 10-26-2022 VIRFUVHOME, Provider : Arabella Terry, Status: Pen, Time: 3:00 PM VIRFUVHOME, Provider: Arabella Terry, Status: Pen, Time: 3:00 PM BX-Sdzokqbmiixtxl-Kx rma [id number] 302 Work Phone: Start: 10-15-2022 [facility], Provider: Arabella Terry, Status: Pen, Time: 8:00 AM [facility], Provider: Arabella Terry, Status: Pen, Time: 8:00 AM AJ-Zwjjobjhtxvxzv-Tg idman Work Phone: Start: 09-24-2022 VIRFUVHOME, Provider : Ranjana Perrin, Status: Pen, Time: 8:30 AM [facility], Provider: Ranjana Perrin, Status: Pen, Time: 8:30 AM [facility] Work Phone: Start: 09-04-2022 VIRFUVHOME, Provider : Ruby Daily, Status: Pen, Time: 11:30 AM [facility], Provider: Ruby Daily, Status: Pen, Time: 11:30 AM [facility] [address] [place] Work Phone: Start: 08-30-2022 EMOT, Provider: EUGENIE OREILLY PROCEDURE ROOM 10,MG GASTRO, Status: Pen, Time: 8:00 AM EMOT, Provider: ELIAN PROCEDURE ROOM 10,MG GASTRO, Status: Pen, Time: 8:00 AM AG-Iprrnjhrtgzill-Qw idman Work Phone: Start: 08-30-2022 EGDANS, Provider: Beth Diego, Status: Pen, Time: 7:30 AM EGDANS, Provider: Beth Diego, Status: Pen, Time: 7:30 AM RT-Gzdqyuosiaknsb-Ez idman Work Phone: Start: 08-17-2022 NPV, Provider: Arabella Alarcon, Status: Pen, Time: 10:40 AM NPV, Provider: Arabella Terry, Status: Pen, Time: 10:40 AM [facility] [address] [place] Work Phone: Start: 08-13-2022 VIRFUVRODRIGOE, Provider : Yoanna Quigley, Status: Pen, Time: 3:15 PM VIRFUVRODRIGOE, Provider: Yoanna Quigley, Status: Pen, Time: 3:15 PM [facility] [address] [place] Work Phone: Start: 07-31-2022 JAYLON, Provider : Ruby Daily, Status: Pen, Time: 12:30 PM JAYLON, Provider: Ruby Daily, Status: Thomas, Time: 12:30 PM BS-Qyjwlnlzvlxmle-Xl gold Voice Work Phone: Start: 05-31-2022 End: 07-31-2022 Comprehensive metabolic 2000 panel - Serum or Plasma COMP METABOLIC PANEL Lab Routine Chronic migraine without aura, intractable, without status migrainosus Expected: 05/31/2022, Expires: 07/31/2022 [facility] Work Phone: Comment on above: Expected: 05/31/2022 , Expires: 07/31/2022 Start: 04-22-2022 ADVANCE DIRECTIVE DISCUSSION ADVANCE DIRECTIVE DISCUSSION [facility] Start: 04-22-2022 DEPRESSION ASSESSMENT DEPRESSION ASS ESSMENT [facility] Start: 03-10-2022 SERUM CREATININE SERUM CREATININE [facility] Start: 01-20-2022 Influenza vaccination Influenza Vacc ine (#1) [facility] Start: 01-05-2022 End: 01-05-2023 Basic metabolic 2000 panel - Serum or Plasma Basic Metabolic Panel Lab Routine EMELIA (acute kidney injury) (HCC) Expected: 01/05/2022, Expires: 01/05/2023 [facility] Phone: Comment on above: Expected: 01/05/2022 , Expires: 01/05/2023 Start: 01-05-2022 End: 01-05-2023 CBC W Auto Differential panel - Blood CBC with Auto Differential Lab Routine Acute pancreatitis, unspecified complication status, unspecified pancreatitis type Expected: 01/05/2022, Expires: 01/05/2023 [employer] Phone: Comment on above: Expected: 01/05/2022 , Expires: 01/05/2023 Start: 12-21-2021 Influenza vaccination [facility] Start: 07-03-2021 [facility] Start: 06-30-2021 Screening for malignant neoplasm of colon [facility] Start: 06-21-2021 End: 06-21-2021 [facility] Start: 06-05-2021 COVID-19 Vaccine (4 - Booster for Moderna series) COVID-19 Vaccine (4 - Booster for Moderna series) [facility] Start: 06-05-2021 COVID-19 VACCINE (4 - Moderna series) COVID-19 VACCINE (4 - Moderna series) [facility] Start: 01-14-2021 Basic metabolic 2000 panel - Serum or Plasma Basic Metabolic Panel [facility] Start: 01-14-2021 Creatinine measurement Basic Metabol ic Panel [facility] Start: 01-05-2021 Thyroid stimulating hormone measurement TSH [facility] Start: 12-15-2020 COVID-19 Vaccine (3 - Booster for Moderna series) COVID-19 Vaccine (3 - Booster for Moderna series) [facility] Start: 02-21-2020 Annual wellness visit Annual W ellness Visit ([id number]) [facility] Start: 12-22-2019 Influenza vaccination Flu vaccine (# 1) [place], [place] Start: 03-03-2019 MRI Brain with out Contrast FN-Tfwbsluoo-Oqzjpeg ld 201 Work Phone: Start: 2018 Abdominal aortic aneurysm screening Abdominal aortic aneurysm scan [facility] Start: 2018 Abdominal Aortic Aneurysm Screening (Age 65+) Abdominal Aortic Aneurysm Screening (Age 65+) [facility] Start: 2018 Pneumococcal 65+ yea rs Vaccine (1 - PCV) Pneumococcal 65+ years Vaccine (1 - PCV) [facility] Start: 2018 Pneumococcal 65+ yea rs Vaccine (1 of 1 - PPSV23) Pneumococcal 65+ years Vaccine (1 of 1 - PPSV23) [place], [place] Start: 2018 Pneumococcal vaccination [facility] Start: 2018 Pneumococcal Vaccine : 65+ (1 - PCV) Pneumococcal Vaccine: 65+ (1 - PCV) [facility] Start: 2018 Pneumococcal Vaccine : 65+ (1 of 1 - PCV) Pneumococcal Vaccine: 65+ (1 of 1 - PCV) [facility] Start: 2018 Pneumococcal Vaccine : 65+ Years (1 - PCV) Pneumococcal Vaccine: 65+ Years (1 - PCV) [facility] Start: 2018 PNEUMOCOCCAL: 65+ (1 - PCV) PNEUMOCOCCAL: 65+ (1 - PCV) [facility] Start: 04-22-2018 Medicare Annual Wellness Visit Medicare Annual Wellness Visit [facility] Start: 2013 Hepatitis B (HBV) Vaccine (optional start 60+ years) Hepatitis B (HBV) Vaccine (optional start 60+ years) [facility] Start: 2013 RSV Vaccine (1 - 1-dose 60+ series) RSV Vaccine (1 - 1-dose 60+ series) [facility] Start: 2013 RSV Vaccine (1 - Ris k 60-74 years 1-dose series) RSV Vaccine (1 - Risk 60-74 years 1-dose series) [facility] Start: 2013 RSV vaccine (optiona l 60+ years) RSV vaccine (optional 60+ years) [facility] Start: 2008 PROSTATE CANCER SCREENING DISCUSSION PROSTATE CANCER SCREENING DISCUSSION [facility] Start: 2003 Measurement of occul t blood in single stool specimen FIT [facility] Start: 2003 Pneumococcal Vaccine : 50+ (1 of 1 - PCV) Pneumococcal Vaccine: 50+ (1 of 1 - PCV) [facility] Start: 2003 Screening for malignant neoplasm of colon [facility] Start: 2003 Shingles (RZV) Vacci ne (1 of 2) Shingles (RZV) Vaccine (1 of 2) [facility] Start: 2003 Shingles Vaccine (1 of 2) Shingles Vaccine (1 of 2) [facility] Start: 2003 SHINGRIX VACCINE (1 of 2) SHINGRIX VACCINE (1 of 2) [facility] Start: 2003 Zoster Vaccines (1 o f 2) Zoster Vaccines (1 of 2) [facility] Start: 1998 COLOGUARD (FIT-DNA) COLOGUARD (FIT-D NA) [facility] Start: 1998 Colonoscopy COLONOSCOPY [facility] Start: 1998 COLORECTAL CANCER SCREENING COLORECTAL CANCER SCREENING [facility] Start: [address] COLONOGRAPHY [facility] Start: 1998 FECAL OCCULT BLOOD FECAL OCCULT BLOO D [facility] Start: 1998 Screening for malignant neoplasm of colon [facility] Start: 1998 SIGMOIDOSCOPY SIGMOIDOSCOPY [facility] Start: 1993 Lipid panel Lipid screen [place], [place] Start: 1988 Lipid 1996 panel - Serum or Plasma Lipid Screening [facility] Start: 1988 Lipid panel Cholesterol [facility] Start: 1988 LIPID SCREEN LIPID SCREEN [facility] Start: 1972 DTaP/Tdap/Td vaccine (1 - Tdap) DTaP/Tdap/Td vaccine (1 - Tdap) [place], [place] Start: 1972 Hepatitis A (HAV) Vaccine (optional start 19+ years) Hepatitis A (HAV) Vaccine (optional start 19+ years) [facility] Start: 1971 ANNUAL PCP TEAM CHRONIC DISEASE VISIT ANNUAL PCP TEAM CHRONIC DISEASE VISIT [facility] Start: 1971 Anxiety Screening Anxiety Screening [facility] Start: 1971 Depression Screening Depression Scre ening [facility] Start: 1971 Hepatitis B surface antibody level LDL CHOLESTEROL [facility] Start: 1971 Hepatitis C screening B ON [facility] Start: 1971 HEPATITIS C SCREENING HEPATITIS C [facility] Start: 1965 Depression Screen Depression Screen [facility] Start: 1959 Pneumococcal Vaccine : 65+ Years (1 of 2 - PCV) Pneumococcal Vaccine: 65+ Years (1 of 2 - PCV) [facility] Start: 1953 ABDOMINAL AORTIC ANEURYSM SCREENING ABDOMINAL AORTIC ANEURYSM SCREENING [facility] Start: 1953 Abdominal aortic aneurysm screening Abdominal Aortic Aneurysm Screening [facility] Start: 1953 Hepatitis C screening Hepatitis C sc [place], [place] Start: 1953 Lipid panel Lipid Panel [facility] Start: 1953 Medicare Annual Wellness Visit Medicare Annual Wellness Visit (AWV) [facility] Start: 1953 Screening for malignant neoplasm of colon [facility] Start: 1953 Thyroid stimulating hormone measurement TSH Level [facility] End: 01-07-2022 Basic metabolic 2000 panel - Serum or Plasma Basic Metabolic Panel Lab Routine Daily for 3 Days starting 01/05/2022 until 01/07/2022, 1 completed [facility] Work Phone: Comment on above: Daily for 3 Days sta rting 01/05/2022 until 01/07/2022, 1 completed Continuous pulse oximetry Pulse oximetry, continuous Respiratory Care Routine Every 4hr until discontinued starting 01/01/2022 [facility] Work Phone: Comment on above: Every 4hr until disc ontinued starting 01/01/2022 Culture, Blood 1 Culture, Blood 1 Microbiology STAT 01/01/2022 12:00 AM EDT [facility] Work Phone: Culture, Blood 2 Culture, Blood 2 Microbiology STAT 01/01/2022 12:01 AM EDT [facility] Work Phone: End: 12-31-2021 Intermittent pulse oximetry Pulse Oximetry Spot Check Respiratory Care Routine One Time for 1 Occurrences starting 12/31/2021 until 12/31/2021 [facility] Work Phone: Comment on above: One Time for 1 Occur rences starting 12/31/2021 until 12/31/2021 End: 06-30-2023 Mra head w/o contrst material [facility] Work Phone: Comment on above: 1 Occurrences starti ng 05/31/2022 until 06/30/2023 Oxygen therapy [Minimum Data Set] Initiate Oxygen Therapy Protocol Respiratory Care Routine As Needed until discontinued starting 12/31/2021 [facility] Work Phone: Comment on above: As Needed until disc ontinued starting 12/31/2021 Patient Education Colon polyps H emorrhoids (DC) [facility] Work Phone: Surgical Pathology Surgical Path ology Lab Routine Gall stone pancreatitis Release Upon Ordering for 1 Occurrences starting 01/02/2022 [employer] Phone: Comment on above: Release Upon Orderin g for 1 Occurrences starting 01/02/2022 EW-Wsnzidgql-Fl jolene ld 201 Work Phone: [facility] NEGATED: Highlighted row has been ruled out! Planned Goals not documented [facility]-Lehhzkjpl-[facility] ld 201 Work Phone: Immunizations Immunization Date Immunization Notes Care Provider [facility] 07-15-2020 Moderna (primary 12+ yrs) COVID-19 vaccine, mRNA, spike protein, LNP, PF, 100 mcg/0.5 mL (RHZ=257) Radha Burris MD Work Phone: [facility] 07-14-2020 Moderna SARS-CoV-2 Vaccination Generic Provider [facility] 06-17-2020 Moderna (primary 12+ yrs) COVID-19 vaccine, mRNA, spike protein, LNP, PF, 100 mcg/0.5 mL (FME=102) Radha Burris MD Work Phone: [facility] 06-16-2020 Moderna SARS-CoV-2 Vaccination Generic Provider [facility] 01-28-2016 influenza, injectable, quadrivalent, preservative free Radha Burris MD Work Phone: [facility] 01-28-2016 influenza virus vaccine, unspecified formulation Radha Burris MD Work Phone: [facility] 01-27-2013 tetanus toxoid, reduced diphtheria toxoid, and acellular pertussis vaccine, adsorbed Thor Fox Other [facility] NEGATED: Highlighted row has not occurred!04-28-2019 influenza, high dose seasonal, preservative-free Patient Objection Thor Fox Other [facility] Other NEGATED: Highlighted row has not occurred!06-14-2015 influenza, injectable,quadriva lent, preservative free, pediatric Patient Objection Thor Fox Other [employer] Other Payers Date Payer Category Payer Self-pay [id number] 2020 Private Health Insurance [id number] 2019 Unknown [id number] [id number] 2018 Medicare [id number]. [id number] 1959 Medicare [id number] 1959 Unknown [id number] 1953 Unknown [id number] 2.16.8 40.1.947555.3.579.2.355 1953 Unknown [id number] 2.16.84 0.1.168741.3.579.2.185 1953 Unknown [id number] 2.16. 840.1.076584.3.579.2.732 1953 Unknown [id number] 2.16.8 40.1.280466.3.579.2.647 1953 Unknown [id number] 2.16.8 40.1.844582.3.579.2.647 1953 Unknown [id number] 2.16.8 40.1.998502.3.579.2.647 1953 Unknown [id number] 2.16. 840.1.178058.3.579.2.175 1953 Unknown [id number] 2.16.84 0.1.823813.3.579.2.593 1953 Unknown [id number] 2.16.84 0.1.721002.3.579.2.593 1953 Unknown [id number] 2.16.84 0.1.489413.3.579.2.593 1953 Unknown [id number] 2.16.84 0.1.328004.3.579.2.593 1953 Unknown [id number] 2.16.84 0.1.656332.3.579.2.593 1953 Unknown [id number] 2.16.84 0.1.778081.3.579.2.593 1953 Unknown [id number] 2.16.84 0.1.776541.3.579.2.593 1953 Unknown [id number] 2.16.84 0.1.332262.3.579.2.593 1953 Unknown [id number] 2.16.84 0.1.207344.3.579.2.593 1953 Unknown [id number] 2.16.84 0.1.119186.3.579.2.593 1953 Unknown [id number] 2.16.84 0.1.816026.3.579.2.593 1953 Unknown [id number] 2.16.84 0.1.855409.3.579.2.593 1953 Unknown [id number] 2.16.84 0.1.705276.3.579.2.593 1953 Unknown [id number] 2.16. 840.1.356210.3.579.2.356 1953 Unknown [id number] 2.16.8 40.1.556638.3.579.2.1045 1953 Unknown [id number] 2.16.8 40.1.020184.3.579.2.104 1953 Unknown [id number] 2.16.8 40.1.338586.3.579.2.1046 1953 Unknown [id number] 2.16.8 40.1.400425.3.579.2.6 1953 Unknown [id number] 2.16.8 40.1.743945.3.579.2.1045 1953 Unknown [id number] 2.16. 840.1.807895.3.579.2.356 1953 Unknown [id number] 2.16. 840.1.283836.3.579.2.356 1953 Unknown [id number] 2.16. 840.1.431650.3.579.2.356 1953 Unknown [id number] 2.16. 840.1.876227.3.579.2.356 1953 Unknown [id number] 2.16. 840.1.366628.3.579.2.356 1953 Unknown [id number] 2.16. 840.1.109979.3.579.2.356 1953 Unknown [id number] 2.16. 840.1.299667.3.579.2.356 1953 Unknown [id number] 2.16. 840.1.093685.3.579.2.356 1953 Unknown [id number] 2.16. 840.1.103025.3.579.2.356 1953 Unknown [id number] 2.16. 840.1.158382.3.579.2.356 1953 Unknown [id number] 2.16. 840.1.719306.3.579.2.356 1953 Unknown [id number] 2.16. 840.1.272542.3.579.2.356 1953 Unknown [id number] 2.16. 840.1.780394.3.579.2.356 1953 Unknown [id number] 2.16.8 40.1.623965.3.579.2.1068 1953 Unknown [id number] 2.16.8 40.1.887008.3.579.2.1068 1953 Unknown [id number] 2.16.8 40.1.303792.3.579.2.1244 1953 Unknown [id number] 2.16.84 0.1.442217.3.579.2.1245 1953 Unknown [id number] 2.16.84 0.1.609763.3.579.2.1245 1953 Unknown [id number] 2.16.8 40.1.386923.3.579.2.1246 1953 Unknown [id number] 2.16.84 0.1.025556.3.579.2.1314 1953 Unknown [id number] 2.16.8 40.1.963393.3.579.2.727 1953 Unknown [id number] 2.16.8 40.1.691119.3.579.2.727 1953 Unknown [id number] 2.16.8 40.1.867289.3.579.2.727 1953 Unknown [id number] 2.16.8 40.1.783668.3.579.2.1259 1953 Unknown [id number] 2.16.8 40.1.679662.3.579.2.9 1953 Unknown [id number] 2.16.8 40.1.648481.3.579.2.1259 1953 Unknown [id number] 2.16.8 40.1.685401.3.579.2.1259 1953 Unknown [id number] 2.16.84 0.1.331690.3.579.2.1259 1953 Unknown [id number] 2.16.84 0.1.129501.3.579.2.9 1953 Unknown [id number] 2.16.84 0.1.803130.3.579.2.1259 1953 Unknown [id number] 2.16.84 0.1.294980.3.579.2.1259 1953 Unknown [id number] 2.16.84 0.1.175025.3.579.2.1259 1953 Unknown [id number] 2.16.84 0.1.794935.3.579.2.1259 1953 Unknown [id number] 2.16.84 0.1.121105.3.579.2.1259 1953 Unknown [id number] 2.16.84 0.1.614007.3.579.2.1259 1953 Unknown [id number] 2.16.84 0.1.713221.3.579.2.1259 1953 Unknown [id number] 2.16.84 0.1.950073.3.579.2.9 1953 Unknown [id number] 2.16.84 0.1.318855.3.579.2.1259 1953 Unknown [id number] 2.16.84 0.1.819615.3.579.2.1259 Private Health Insurance [id number] Unknown [id number] 2.16.8 40.1.938522.3.579.2.531 Unknown [id number] 2.16.8 40.1.719779.3.579.2.531 Social History Date Type Detail Facility Assertion Unknown if ever smoked [facility] [id number] Work Phone: Start: 1955 Sex Assigned At Not on file [place], [place] Start: 06-29-2021 End: 12-17-2023 Sex Assigned At [facility] Start: 01-01-2022 Tobacco smoking stat [facility] Never smoked tobacco [facility] Phone: Start: 01-01-2022 End: 06-09-2024 Tobacco use and exposure Smokeless tobacco non-user [employer] Phone: Start: 12-21-2021 End: 01-31-2023 Exposure to SARS-CoV-2 (event) Not sure [facility] Work Phone: Start: 01-06-2020 End: 06-09-2024 Tobacco smoking status NHIS Ex-smoker [facility] Start: 04-22-1967 End: 01-06-1984 History of tobacco use Current smoker [facility] Start: 04-22-1967 End: 01-06-1984 History of tobacco use Cigarette Smoker [facility] Start: 01-27-2020 End: 12-25-2024 Alcohol intake Current drinker of alcohol (finding) [facility] Start: 01-27-2020 End: 12-17-2023 Alcohol intake [facility] Start: 01-06-2020 History SDOH Alcohol Frequency 2 [facility] Start: 05-04-2021 Alcohol Comment 1 beer once a month [facility] Start: 03-23-2012 Adult Depression Screening Assessment 1 [facility] Start: 01-02-2024 End: 01-06-2024 [facility] smoking consumption unknown [facility] Work Phone: Start: 1955 Sex Assigned At Male [facility] Within the last year , have you [...] Gender identity Identifies as male gender (finding) [facility] Start: 12-01-2020 Alcohol Comment one half of a beer once a month [facility] Start: 03-28-2021 End: 04-27-2021 Exposure to SARS-CoV-2 (event) Unable to assess [facility] Start: 01-02-2024 Alcohol intake Alcohol Use Details [facility] Comment on above: quit 1983 Start: 02-06-2021 Sexual Orientation Straight or heterosexual [facility] Start: 01-25-2023 Sexual Orientation Choose not to dis close [facility] Are you now , , , , never or living with a partner? [facility] Healthcare History of tobacco use Pipe Smoker [facility] History of tobacco use Cigar Smoker [facility] Start: 08-21-2024 Alcohol Comment Caffeine intak e: 1 cups per day of coffee [facility] Healthcare Tobacco smoking status [facility] Start: 01-22-2019 Sex Male (finding) [facility] Medical Equipment Procedure Code Equipment Code Equipment Origin al Text Equipment Identifier Dates Gas Ispan [employer] Intraocular Vision System [id number] - [id number] Start: 10-15-2017 Lens Iol Ultrase rt 16 - [id number] Start: 10-15-2017 Sleeve 2.4mm 1.5 mm Silicone 30mm Scleral Round Sterile - [id number] Start: 10-15-2017 Strip Silicone [id number] Retinal 9229 Sterile - [id number] Start: 10-15-2017 Goals Date Patient Goal Desired Activity /State Functional Status Date Assessment Result Facility 12-25-2024 Patient Health Questionnaire 2 item (PHQ-2) [Reported] [facility] 12-15-2020 Are you deaf, or do you have serious difficulty hearing No 12/15/2020 12:20 PM Kathie Guillen APRN.ORDER PACKER No [facility] Work Phone: 12-15-2020 Are you blind, or do you have serious difficulty seeing, even when wearing glasses No 12/15/2020 12:20 PM EDT Kathie Lee APRN.ORDER PACKER No [facility] 12-15-2020 Do you have serious difficulty walking or climbing stairs No 12/15/2020 12:20 PM EDT Kathie Lee APRN.ORDER PACKER No [facility] 12-15-2020 Do you have difficul ty dressing or bathing No 12/15/2020 12:20 PM EDT Kathie Lee APRN.ORDER PACKER No [facility] 12-15-2020 Because of a physica l, mental, or emotional condition, do you have difficulty doing errands alone such as visiting a physician's office or shopping No 12/15/2020 12:20 PM EDT Kathie Lee APRN.NEETU No [facility] NEGATED: Highlighted row Functional performance Functional status health issues are not documented Disease [facility] Work Phone: Mental Status Date Assessment Result Facility 12-15-2020 Because of a physical, mental, or emotional condition, do you have serious difficulty concentrating, remembering, or making decisions No 12/15/2020 12:20 PM EDT Kathie Lee APRN.ORDER PACKER No [facility] NEGATED: Highlighted row Cognitive function [Interpretation] Cognitive status health issues are not documented Disease [facility] 201 Work Phone: Clinical Notes 2018 to 01-07-2025 Shivani Adams NP - 12/25/2024 9:00 AM EDTTelephone Encounter - Shaylee Sweet - 12/15/2024 11:36 AM EDTTelephone Encounter - Shaylee Sweet - 12/15/2024 11:36 AM EDTPatient Instructions Note Date & Type Note Facility 01-07-2025 Note HNO ID: [id number] Author: SHELDON HUDSON MD Service: ? Author Type: Physician Type: Progress Notes Filed: 01/07/2025 16:37 Note Text: [facility] - NEW PATIENT EVALUATION Recording using ambient [employer] software for draft documentation of the visit was discussed with the patient/authorized field representative; all questions welcomed and answered. Patient/authorized field representative agreed to proceed Primary Movement Disorders Neurologist: Sheldon Hudson MD Primary Movement Disorders AQUILES: Not yet assigned Referring Provider: Abby Bernstein [id number] [facility] [id number] Primary Care Provider: Radha Burris MD [address] [facility] [address] Dear Abby Bernstein: Thank you for referring Mr. Antunez to our clinic today. As you know he is a 69 year old right-handed male who is seen in consultation for evaluation of gait instability, dizziness, OH since 2021. He is seen alone. Subjective HISTORY OF PRESENT ILLNESS: Jamil Antunez is a 69-year-old male presenting for evaluation of balance issues, tremors, and weakness. Jamil reports a three-year history of progressive balance issues, tremors, and weakness. He describes a shuffling gait and experiences frequent dizziness, initially occurring during activities but now present even upon waking. He notes significant fluctuations in blood pressure, despite having a dual-purpose pacemaker. He does not report episodes of freezing while walking. He experiences occasional tremors, primarily in the right (dominant) hand, described as a nervous movement resembling the sensation of having his hand on a andreas. These tremors occur more frequently when his hands are relaxed. He also reports intermittent drooping of his eyelid. He notes difficulty with fine motor tasks such as buttoning, though he attributes this to aging. He does not endorse changes in handwriting size, and he does not report acting out dreams or experiencing hallucinations. He does not endorse urinary issues or constipation. He reports weakness in his hands and upper legs, more pronounced on the right side, which worsens with use. He also experiences severe leg pain every few nights, which recently required an ER visit for management. He has a history of restless leg syndrome. He reports some cognitive difficulties, particularly with recalling names and phone numbers, which he describes as requiring more effort than previously. He experiences ocular migraines with visual auras but does not report hallucinations. He does not endorse a family history of neurological conditions such as tremors, Parkinson's disease, or dementia. He notes that most males in his family did not live past 60 years of age. Past Diagnostic Results: - (06/2022) Brain MRI: Normal. Movement Disorders Medications Schedule - as of the start of the visit: Medications Questionnaires In addition, the following areas that may be affected by abnormal involuntary movements were evaluated: Daily activities Difficulties with eatin (none) Difficulties in dressin (none) Difficulties with hygiene activities: 0 (none) Difficulties with handwriting: Yes (moderate) Difficulties with doing hobbies and other activities: Yes (moderate) Difficulties turning in bed: Yes (slight) Difficulties getting out of bed, car or chair: Yes (slight) Tremors/Gait/Balance Shaking or tremors: 0 (none) Walking and balance problems: Yes (slight) Number of falls in the Last Month: Gait freezin (none) Autonomic/Pain Lightheadeness on standing: Yes (mild) Urinary problems: Yes (slight) Constipation problems: 0 (none) Pain and other sensations: Yes (moderate) Speech/Swallowing Speech problems: Yes (mild) Droolin (none) Chewing and swallowing problems: Yes (slight) Sleep/Fatigue Sleep problems: Yes (moderate) Daytime sleepiness: Yes (mild) Fatigue: Yes (slight) Mood/Behavior Depression: PHQ-9 Score: 2 usually representing no significant (0-4) depression. Anxiety: APRYL-7 Total Score: 0 usually representing no significant (0-4) anxiety. Finally, the following table shows the patient's overall global physical and mental health using the PROMIS scale: PROMIS-10 Flowsheet Row Office Visit from 01/07/2025 in [facility]ointment from 01/04/2025 in [facility] Global Physical Health T Score 39.8 39.8 Global Mental Health T Score 45.8 45.8 0-10 Standard Pain Scale 3 3 *PROMIS-10 scoring scale: mean = 50, over 50 is above average, under 50 is below average ALLERGIES Allergen Reactions Penicillins Unknown Tikosyn [Dofetilide] Other: See Comments Aphasia, dizzy, muscle cramps Vancomycin Anaphylaxis Current Outpatient Medications Medication Sig sotalol (BETAPACE) 120 mg tablet Take 120 mg by mouth every 12 hours. magnesium oxide (MAG-OX) 400 mg (241.3 mg magnesium) tablet Take 235 mg by mouth two times a d (more content not included)... [facility] 12-31-2024 Note [facility] DISORDERS CLINIC Reason for Consultation: Chest pain HPI: Yoli Antunez Jr. is a 69 y.o. year old with past medical history of chest pain and angina pectoris. These come on after activities such as climbing the stairs to the hay bin. I suggested that he send only about half the number of stairs and rest for period of time before going up further. Most likely he has some degree of microvascular disease that is causing the angina. I personally analyzed his pacemaker while in clinic today and showed it was working normally with good sensing and pacing thresholds. There were no recorded arrhythmias present. Documentation of my personal download of his device can be found in the chart review section under the tab media. PMH: Medical History[1] PSH: Surgical History[2] SH: Social Drivers of Health Tobacco Use: Medium Risk (12/31/2024) Patient History Smoking Tobacco Use: Former Smokeless Tobacco Use: Former Passive Exposure: Not on file Alcohol Use: Not At Risk (12/17/2023) Received from [facility] AUDIT-C Frequency of Alcohol Consumption: Monthly or less Average Number of Drinks: 1 or 2 Frequency of Binge Drinking: Never Financial Resource Strain: Low Risk (04/08/2024) Overall Financial Resource Strain (CARDIA) Difficulty of Paying Living Expenses: Not hard at all Food Insecurity: No Food Insecurity (04/08/2024) Hunger Vital Sign Worried About Running Out of Food in the Last Year: Never true Ran Out of Food in the Last Year: Not on file Transportation Needs: No Transportation Needs (04/08/2024) Transportation Lack of Transportation (Medical): No Lack of Transportation (Non-Medical): Not on file Physical Activity: Sufficiently Active (12/17/2023) Received from [facility] Exercise Vital Sign Days of Exercise per Week: 7 days Minutes of Exercise per Session: 30 min Stress: Patient Declined (12/17/2023) Received from [facility] [place] [employer] - Occupational Stress Questionnaire Feeling of Stress : Patient declined Social Connections: Moderately Isolated (12/17/2023) Received from [facility] Social Connection and Isolation Panel [NHANES] Frequency of Communication with Friends and Family: More than three times a week Frequency of Social Gatherings with Friends and Family: More than three times a week Attends Sikh Services: Never Active Member of Clubs or Organizations: No Attends Club or Organization Meetings: Never Marital Status: Intimate Partner Violence: Unknown (04/08/2024) Humiliation, Afraid, Rape, and Kick questionnaire Fear of Current or Ex-Partner: No Emotionally Abused: Not on file Physically Abused: Not on file Sexually Abused: Not on file Depression: Not at risk (12/28/2024) Received from [facility] PHQ-2 PHQ-2 score: 0 Housing Stability: Low Risk (04/08/2024) Housing Stability Vital Sign Unable to Pay for Housing in the Last Year: No Number of Times Moved in the Last Year: Not on file Homeless in the Last Year: No Utilities: Not At Risk (04/08/2024) [facility] Utilities Threatened with loss of utilities: No Health Literacy: Adequate Health Literacy (12/17/2023) Received from [facility] Frequency of need for help with medical instructions: Never Meds: Medications Ordered Prior to Encounter[3] ROS: Cardio Basic Cardiovascular Symptoms: no lightheadedness, [...] time, place, and person Insight: good judgement Labs: @LABRESULTS@ EKG: No results found for this or any previous visit (from the past 4464 hours). Echo: Complete Echo (TTE) w/wo Imaging Agent, (more content not included)... [facility] 12-25-2024 History of Presen t illness Narrative Images from the original note were not included. Subjective ?Quick Links Last Note in Specialty Snapshot Edit RFV/CC Edit Screenings Current Meds Patient ID: Yoli Antunez is a 69 y.o. male who presents for Hospital Follow-up. HPI History of Present Illness The patient presents for evaluation of leg pain. He experiences leg pain, particularly in the evenings, which is described as spasmodic rather than sharp. The pain has been radiating into the calves for the past week and a half. There is no associated back pain. Swelling in the legs is noted at night, which subsides by morning. The pain is severe enough to disrupt sleep, prompting walking to alleviate it. There is no sensation of pins and needles. Some relief is found from wrapping the legs with an Shawn bandage, but this tends to slip off by morning due to the swelling. Stretching exercises provide temporary relief. Blood pressure was elevated this morning at 147/98, but it typically normalizes as the day progresses. Atrial fibrillation was experienced earlier this week, but it has since resolved. Sotalol was started in 02/2024 for atrial fibrillation, but there are now issues with prolonged QT interval. Currently undergoing a workup for myasthenia gravis at the [facility] and has an upcoming appointment with neurology. One eye closes once or twice a day and cannot be reopened. ?Quick Review Review Full History Edit History Meds - calcitriol (Rocaltrol) 0.25 MCG capsule calcium carbonate (Os-Atilio) 1250 (500 Ca) MG chewable tablet ergocalciferol (Vitamin D-2) 1.25 MG (64385 UT) capsule levothyroxine (Synthroid) 150 MCG tablet levothyroxine (Synthroid) 175 MCG tablet magnesium lactate CR (Magtab) 84 MG (7MEQ) ER tablet nitroglycerin (Nitrostat) 0.4 MG SL tablet pramipexole (Mirapex) 1 MG tablet sotalol (Betapace) 120 MG tablet midodrine (Proamatine) 5 MG tablet --- PMH - A-fib (HCC) Abdominal aortic aneurysm without rupture Acquired absence of other specified parts of digestive tract Aortic root dilatation Biliary acute pancreatitis without necrosis or infection (HHS-HCC) Brain lesion Cataract COVID-19 GI bleed History of being hospitalized History of partial knee replacement HL (hearing loss) Hypertension Hyperthyroidism Hypothyroid Kidney stone Migraine Noninfective gastroenteritis and colitis, unspecified Numbness Orthostatic hypotension Paroxysmal atrial fibrillation (HCC) Peripheral neuropathy Personal history of medical treatment Sleep apnea TIA (transient ischemic attack) Vitamin D deficiency Vitreous hemorrhage (CMS-HCC) Objective ?Quick Links Add Vitals Timeline (Adult) Labs Imaging Results Review Trend Vitals ?? Avoid pulling in long tables of results. Comment on relevant results to support your medical decision making. BP 118/80 (BP Location: Right arm, Patient Position: Sitting, BP Cuff Size: Large adult) Pulse 75 Wt 252 lb SpO2 99% BMI 29.12 kg/m Physical Exam Vitals reviewed. HENT: Head: Normocephalic [...] No edema. Left lower leg: No edema. Comments: Bilateral thighs: no spasming noted, no swelling. Skin: General: Skin is warm and dry. Capillary Refill: Capillary refill takes less than 2 seconds. Findings: No rash. Neurological: General: No focal deficit present. Mental Status: He is alert and oriented to person, place, and time. Physical Exam ?Quick Links Full Problem List Back Pain Cardiology CHF Chronic Pain GI Headache Hypertension Thyroid Assessment & Plan Assessment & Plan 1. Leg pain: - The leg pain, described as spasms primarily occurring in the evenings, may be related to electrolyte or thyroid abnormality. There is no significant swelling observed during the day, but there is some swelling at night. - Blood work will be conducted today to assess thyroid function, magnesium levels, and calcium levels. - He is advised to maintain adequate hydration and continue stretching exercises. Further treatment will be determined based on the results of the blood work. 2. Hypertension: - Blood pressure readings are generally good, but there was a noted elevation this morning at 147/98 mmHg. 3. Atrial fibrillation: - He reports intermittent episodes of flipping in and out of atrial fibrillation, lasting 5-10 minutes. - He is currently on sotalol, initiated last February, for atrial fibrillation. He is experiencing issues with prolonged QT interval. - Managed by cardiology 4. Eyelid ptosis: - He reports that one of his eyes closes once or twice a day and he is unable to reopen it. - He is undergoing a workup for myasthenia gravis at the [facility] and has an upcoming appointment with neurology. documented in this encounter [facility] 12-15-2024 Telephone encounter Note Type of record received: Labs Records received from: [facility] Records received via: Faxed Records scanned into Epic: Yes Records have been forwarded to: Lawrence [facility] 12-15-2024 Miscellaneous Notes Type of record received: Labs Records received from: [facility] Records received via: Faxed Records scanned into Epic: Yes Records have been forwarded to: [place] documented in this encounter [facility] 11-10-2024 Instructions Abby Bernstein APRN.CNP - 11/10/2024 12:36 PM EDT PLAN: Consult to [facility] Send me AChR and Musk labs please Follow up in 3 months documented in this encounter [facility] 11-10-2024 History of Presen t illness Narrative Images from the original note were not included. [facility] Follow Up Yoli Antunez is a 69 year old male who presents today for follow up regarding [place] PMH: AAA Arthritis CKD state 3 CAD Personal history of smoking ZONIA GOUT HLD HTN Hypothyroid ADA with BIPAP RLS TIA Chart Review: María Pearl APRN.ORDER PACKER IMPRESSION/PLAN: Orthostatic hypotension Tilt table testing indicative of orthostatic hypotension. This would likely explain his symptoms of orthostatic lightheadedness and near syncope. He notes that since the tilt table test, his Benazepril and Diltiazem have been discontinued, but his orthostatic symptoms persist. He was seen by Dr. Vilchis at [facility] who would like to place a [...] 104 64 56 Baseline continuous BP: 107/63 30-01 105 69 60 12L 1445; 94/65 30-02 102 69 59 DIZZINESS 30-03 45-01 96 67 64 DIZZINESS, 12L 1447; 96/64 INCREASING 45-02 100 69 66 45-03 70-01 91 68 76 SEE NOTE, [id number] ; feels like something is pulling on his eyes 70- 98 69 72 CH. PAIN 3/10 chest pain; 12L 1450; 98/60 70-03 98 66 74 CH. PAIN, 5/10 pain scale; patient not INCREASING verbally responding symptom questions 70-04 102 69 70 70-05 96 66 72 113/78 70-06 98 70 77 70-07 99 70 76 CH. PAIN, SEE pain is coming in waves 10 NOTE -08 99 72 82 HEADACHE 70-09 79 50 [...] focal stenosis, occlusion, or aneurysmal dilatation. Complete pala of Michel. Electronically signed: Cher Castaneda. CT [...] aortic aneurysm) without rupture Arthritis Atrial fibrillation/flutter (HCC) CAD (coronary artery disease) CKD (chronic kidney disease) stage 3, GFR 30-59 ml/min ([facility]) Ex-smoker Gastric ulcer GERD (gastroesophageal reflux disease) [...] BL lower extremities Movement/Coordination Finger-to- nose-finger and [id number] intact bilaterally. No evidence of ataxia arms. [...] & Plan 11/10/2024 - Neuromuscular, Abby Bernstein APRN.ORDER PACKER ASSESSMENT Yoli Antunez is a 69 year old who is here today for follow up for orthostatic hypotension. He is a previous patient of María Pearl APRN.NEETU who is no longer with the neurological [...] which included preparing to see the patient, [id number] patient care, completing clinical documentation, obtaining and/or [...] them return for neurological follow up as hunter as next steps of communication is agreed upon Patient verbalizes understanding and I have addressed concerns and questions at this visit Patient has my contacts, educational material provided, and my chart sign up. After visit summary discussed. Office Visit on 11/10/24 ACETYLCHOLINE REC BINDING AB *Canceled* CONSULT TO NEUROLOGY Abby Bernstein, [facility] Neuromuscular Medicine [address] [place] [address]. [address] Appointment: [phone] 1. This office note has been dictated [...] problem? : Moderate documented in this encounter [facility] 11-10-2024 Note HNO ID: [id number] Author: ABBY BERNSTEIN APRN.NEETU Service: ? Author Type: Nurse Practitioner Type: Progress Notes Filed: 11/10/2024 13:31 Note Text: [facility] Follow Up Yoli [...] He was seen by Dr. Vilchis at [facility] who would like to place a [...] - Pacemaker placed last fall by Dr. Vilhcis; no improvement in symptoms. - Reports worsening [...] a focal sm (more content not included)... [facility] 10-29-2024 History of Presen t illness [...] 09/12/2000 Past Medical History: Diagnosis Date A-fib ([facility]) 11/2020 [facility] Abdominal aortic aneurysm without rupture Acquired absence of other specified parts of digestive tract 09/22/2024 Aortic root dilatation Biliary acute pancreatitis without necrosis or infection ([facility]-HCC) Brain lesion SMALL BRAIN LESION C/W MS [...] ischemic attack) Vitamin D deficiency Vitreous hemorrhage ([facility]-H[facility]) 08/2017 Macular Pucker Current Outpatient Medications: calcitriol (Rocaltrol) 0.25 MCG capsule, Take 1 capsule (0.25 mcg) by mouth Daily, Disp: 90 capsule, Rfl: 1 calcium carbonate (Os-Atilio) 1250 (500 Ca) MG chewable tablet, Chew 1 tablet in the morning., Disp: , Rfl: ergocalciferol (Vitamin D-2) 1.25 MG (44913 UT) capsule, Take 1 capsule (1.25 mg) [...] History: Procedure Laterality Date ABLATION A-FIB 11/2020 [facility] ANTERIOR CERVICAL DISCECTOMY W/ FUSION APPENDECTOMY CARDIAC SURGERY 09/2020 [facility] CATARACT EXTRACTION Right 02/2022 CHOLECYSTECTOMY 01/02/2022 CT [...] Watchman FLX Lt atrial appendage closure device TX THYROIDECTOMY SUBSTERNAL CERVICAL APPROACH 09/24/2018 RETINAL DETACHMENT SURGERY Left reattach SEPTOPLASTY 10/07/2024 SINUS SURGERY Right 10/07/2024 THROAT SURGERY 09/13/2022 throat dilation at THYROID SURGERY TOTAL KNEE ARTHROPLASTY Left 05/08/2016 partial TRANSESOPHAGEAL ECHOCARDIOGRAM (CHANTELLE) 04/25/2022 at [place] URETERAL STENT PLACEMENT Left 01/2019 Social History [...] Strain: Low Risk (04/08/2024) Received from [facility] Overall Financial Resource Strain (CARDIA) Difficulty of Paying Living Expenses: Not hard at all Food Insecurity: No Food Insecurity (04/08/2024) Received from [facility] Hunger Vital Sign Within the past 12 months, you worried that your food would run out before you got the money to buy more.: Never true Ran Out of Food in the Last Year: Not on file Transportation Needs: No Transportation Needs (04/08/2024) Received from [facility] Transportation In the past 12 months, has lack of transportation kept you from medical appointments or from getting medications?: No Lack of Transportation (Non-Medical): Not on file Physical Activity: Sufficiently Active (12/17/2023) Exercise Vital Sign Days of Exercise per Week: 7 days Minutes of Exercise per Session: 30 min Stress: Patient Declined (12/17/2023) [place] [employer] - Occupational Stress Questionnaire Feeling of Stress : Patient declined Social Connections: Moderately Isolated (12/17/2023) Social Connection and Isolation Panel [NHANES] Frequency of Communication with Friends and Family: More than three times a week Frequency of Social Gatherings with Friends and Family: More than three times a week Attends Sikh Services: Never Active Member of Clubs or Organizations: No Attends Club or Organization Meetings: Never Marital Status: Intimate Partner Violence: Unknown (04/08/2024) Received from [facility] Humiliation, Afraid, Rape, and Kick questionnaire Fear of Current or Ex-Partner: No Emotionally Abused: Not on file Physically Abused: Not on file Sexually Abused: Not on file Housing Stability: Low Risk (04/08/2024) Received from [facility] Housing Stability Vital Sign In the last 12 months, was there a time when you were not able to pay the mortgage or rent on time?: No Number of Times Moved in the Last Year: Not on file At any time in the past 12 months, were you homeless or living in a fdc (including now)?: No Objective ENT Physical Exam [...] of fistula repair. documented in this encounter [facility] 10-15-2024 History of Presen t [...] or 3 weeks. documented in this encounter [facility] 10-07-2024 Hospital Discharg e instructions Patient Education 10/07/2024 16:09:17 Post Op Patient Instructions - FT (CUSTOM) 10/07/2024 14:50:45 [place] Information 2 (Custom) [place], [place] Lalito Burris DO FUNCTIONAL ENDOSCOPIC SINUS SURGERY INFORMATION SHEET WHY DO I NEED FUNCTIONAL ENDOSCOPIC SINUS SURGERY? Your doctor has recommended functional endoscopic sinus surgery because maximum medical therapy (roasterman antibiotics, mucus thinners and nasal sprays) has [...] Up Care 09/22/2024 15:48:54 With:Lalito Burris Address: [facility] [address] [address] [phone] Business (1) When: Unknown [facility] 10-07-2024 Note Progress Note-Physic shan Patient: YOLI ANTUNEZ JR Age: 69 years Sex: Male : 1955 Associated Diagnoses: None Author: Amos Mena Jr., DO Postoperative Information Postoperative disposition: Postoperative disposition: Home. Optimetrix number: Optimetrix number [id number]. Anesthetic utilized: General. Physical Examination Vital Signs [...] Diastolic Blood Pressure 99 mmHg HI 10/07/2024 14:40 EDT Temperature Temporal Artery 36.4 [...] Permitted patient to (more content not included)... [facility] Comment on above: Result Comment: Elec tronically Signed By: Amos Mena Jr., DO\.dionne\Date and Time Signed: 10/07/24 17:02 EDT 10-07-2024 Note Patient Education - Text [facility], [place] Lalito Burris, DO FUNCTIONAL ENDOSCOPIC SINUS SURGERY INFORMATION SHEET WHY DO I NEED FUNCTIONAL ENDOSCOPIC SINUS SURGERY? Your doctor has recommended functional endoscopic sinus surgery because maximum medical therapy (roasterman antibiotics, mucus thinners and nasal sprays) has [...] diet is b (more content not included)... [facility] 10-07-2024 Evaluation + Plan note Extrac seema from: Title:ANES Post-operative Note - General Author: Amos Mena Jr., DO Date:10/07/24 Plan Transfer/Discharge: Transfer/Discharge Discharge when meets criteria ( From PACU to Ambulatory Surgery Unit, and To home ). Extracted from: Title:ANES Pre-operative Note - Adult Author:Amos Akins Jr., DO Date:10/07/24 Plan [place] [employer] (ASA) physical status classification: Class III. Anesthetic Preoperative Plan: Anesthesia General. [facility] [id number] NoteProgress Note-Physician Patient: YOLI ANTUNEZ JR Age: [...] BPH with urinary obstruction / SNOMED CT 9089528938 / Confirmed Gout / SNOMED CT 762559084 / Confirmed Head injury / SNOMED CT 399293959 / Confirmed Headache / SNOMED CT 02307451 / Confirmed History of TIAs / SNOMED CT 1744546123 / Confirmed Hydronephrosis with obstructing calculus / SNOMED CT 83931853 / Confirmed Hypertension / SNOMED CT 7462707602 / Confirmed Hyperthyroidism / SNOMED CT 14942843 / Confirmed Kidney stone / SNOMED CT 606349450 / Confirmed Low back pain / SNOMED CT 766829137 / Confirmed Nocturia / SNOMED CT 534160141 / Confirmed Post-void dribbling / SNOMED CT 408934935 / Confirmed Stage 3 chronic kidney disease / SNOMED CT 1589480826 / Confirmed Resolved: Atrial fibrillation / SNOMED CT 25878430 Resolved: High blood pressure / SNOMED CT 09154107 Resolved: Kidney disease / SNOMED CT 710290784 Histories Past Medical History: Resolved Atrial fibrillation (24348004): Resolved. Kidney disease (732847437): Resolved. High blood pressure (08652265): Resolved. Procedure history: Colonoscopy (942182082). Tonsillectomy (594674570). Knee replacement (199113023). Comments: 01/29/2019 16:14 EDT - Page Umu KOLB Right/Left Back (981233115). Thyroidectomy (00328014). Knee replacement (297383848). Appendectomy (726271623). Fusion of joint of cervical spine with internal fixation by anterior approach (0431367678). Cardiac Ablation x3 (215302416). Cholecystectomy (42558529). Implantation of cardiac pacemaker (459711828). Detached retina of left eye (4031767379). CEIOL - cataract extraction and implantation of intraocular lens (7893734589). Watchman Implant (13660623). Comments: 09/25/2024 14:40 EDT - Damian GONZALEZ, Polly Tolbert 2022 Social History Social & Psychosocial Habits Alcohol 01/19/2020 Use: Current Comment: demetrio - 01/19/2020 15:22 - Radha Perez RN 09/13/2020 Frequency: 1-2 times per month Substance Abuse 01/19/2020 Use: Current Comment: den - 01/19/2020 15:23 - Radha Perez RN Comment: adelina - 09/13/2020 09:04 - SHAYLEE GUEVARA CNP Tobacco 01/29/2019 Tobacco Use: Former smoker, quit more Type: Cigarettes, Cigars 0 (more content not included)...[facility] Result Comment: Electronically Signed By: Amos Mena Jr., DO.br\Date and Time Signed: 10/07/24 11:35 [id number] [facility]ovascular Medicine [facility] SUBJECT[facility] Chief Complaint Patient presents with Coronary Artery Disease Chest Pain Hypotension Atrial Fibrillation Yoli Antunez Jr. is a 69 y.o. male here for [...] cervical disc disease. Neuro referred him to [facility] for further evaluation of his ptosis and [...] cardiac catheterization 08/2023, POTS who presented to [facility] ED with ongoing chest pain that has [...] (CMS/HCC) Essential hypertension Coronary artery disease involving [place] coronary artery of [place] heart without angina pectoris Recurrent falls History [...] Diverticulosis of small in (more content not included)...[facility]06-12-2025 NotePatient is here today for a follow [...] leg swelling. Respiratory: Positive for shortness of breath.[facility]06-03-2025 History of Present illness Narrative* Lalito Burris, [...] Medical History: Diagnosis Date A-fib (CMS/HCC) 11/2020 [facility] Abdominal aortic aneurysm without rupture ([facility]/H[facility]) Acquired absence of other specified parts of digestive tract 09/22/2024 Aortic root dilatation ([facility]/HCC) Biliary acute pancreatitis without necrosis or infection [...] Rfl: 0 ergocalciferol (Vitamin D-2) 1.25 MG (16228 UT) capsule, Take 1 capsule (1.25 mg) [...] History: Procedure Laterality Date ABLATION A-FIB 11/2020 [facility] ANTERIOR CERVICAL DISCECTOMY W/ FUSION APPENDECTOMY CARDIAC SURGERY 09/2020 [facility] CATARACT EXTRACTION Right 02/2022 CHOLECYSTECTOMY 01/02/2022 CT [...] Watchman FLX Lt atrial appendage closure device TX THYROIDECTOMY SUBSTERNAL CERVICAL APPROACH 09/24/2018 RETINAL DETACHMENT SURGERY Left reattach THROAT SURGERY 09/13/2022 throat dilation at THYROID SURGERY TOTAL KNEE ARTHROPLASTY Left 05/08/2016 partial TRANSESOPHAGEAL ECHOCARDIOGRAM (CHANTELLE) 04/25/2022 at [place] URETERAL STENT PLACEMENT Left 01/2019 Social History [...] Strain: Low Risk (04/08/2024) Received from [facility] Overall Financial Resource Strain (CARDIA) Difficulty of Paying Living Expenses: Not hard at all Food Insecurity: No Food Insecurity (04/08/2024) Received from [facility] Hunger Vital Sign Within the past 12 months, you worried that your food would run out before you got the money to buymore.: Never true Ran Out of Food in the Last Year: Not on file Transportation Needs: No Transportation Needs (04/08/2024) Received from [facility] Transportation In the past 12 months, has lack of transportation kept you from medical appointments or from getting medications?: No Lack of Transportation (Non-Medical): Not on file Physical Activity: Sufficiently Active (12/17/2023) Exercise Vital Sign Days of Exercise per Week: 7 days Minutes of Exercise per Session: 30 min Stress: Patient Declined (12/17/2023) [place] [employer] - Occupational Stress Questionnaire Feeling of Stress : Patient declined Social Connections: Moderately Isolated (12/17/2023) Social Connection and Isolation Panel [NHANES] Frequency of Communication with Friends and Family: More than three times a week Frequency of Social Gatherings with Friends and Family: More than three times a week Attends Sikh Services: Never Active Member of Clubs or Organizations: No Attends Club or Organization Meetings: Never Marital Status: Intimate Partner Violence: Unknown (04/08/2024) Received from [facility] Humiliation, Afraid, Rape, and Kick questionnaire Fear of Current or Ex-Partner: No Emotionally Abused: Not on file Physically Abused: Not on file Sexually Abused: Not on file Housing Stability: Low Risk (04/08/2024) Received from [facility] Housing Stability Vital Sign In the last 12 months, was there a time when you were not able to pay the mortgage or rent on time?: No Number of Times Moved in the Last Year: Not on file At any time in the past 12 months, were you homeless or living in a fdc (including now)?: No Objective ENT Physical Exam [...] disease, serous disability,and . documented in this encounterParkland Health [id number] History of Present illness Narrative* Lalito Burris [...] Medical History: Diagnosis Date A-fib (CMS/HCC) 11/2020 [facility] Abdominal aortic aneurysm without rupture ([facility]/HCC) Aortic root dilatation ([facility]/HCC) Biliary acute pancreatitis without necrosis or infection Brain lesion SMALL BRAIN LESION C/W MS Cataract COVID-19 GI bleed History of being hospitalized 12/2021 abd pain, lap ivy History of partial knee replacement left HL (hearing loss) Hypertension (CMS/HCC) Hyperthyroidism (CMS/HCC) Hypothyroid ([facility]/HCC) Kidney stone with mild hydonephrosis Migraine Numbness Orthostatic hypotension Paroxysmal atrial fibrillation ([facility]/HCC) Peripheral neuropathy Personal history of medical treatment [...] Disp: ,Rfl: ergocalciferol (Vitamin D-2) 1.25 MG (85104 UT) capsule, Take 1 capsule (1.25 mg) [...] History: Procedure Laterality Date ABLATION A-FIB 11/2020 [facility] ANTERIOR CERVICAL DISCECTOMY W/ FUSION APPENDECTOMY CARDIAC SURGERY 09/2020 [facility] CATARACT EXTRACTION Right 02/2022 CHOLECYSTECTOMY 01/02/2022 CT ANGIO HEAD 03/05/2023 CT ANGIO HEAD 03/05/2023 CT ANGIOGRAM ABDOMEN 07/06/2021 CT ANGIOGRAM ABDOMEN 07/06/2021 CT ANGIOGRAM ABDOMEN PELVIS 08/24/2021 CT ANGIOGRAM ABDOMEN PELVIS 08/24/2021 CT ANGIOGRAM ABDOMEN PELVIS 09/16/2021 CT ANGIOGRAM ABDOMEN PELVIS 09/16/2021 CT ANGIOGRAM CHEST 07/06/2021 CT ANGIOGRAM CHEST [facility] DATA LEGACY CT ANGIOGRAM HEART CORONARY 08/30/2020 [...] Watchman FLX Lt atrial appendage closure device TX THYROIDECTOMY SUBSTERNAL CERVICAL APPROACH 09/24/2018 RETINAL DETACHMENT SURGERY Left reattach THROAT SURGERY 09/13/2022 throat dilation at THYROID SURGERY TOTAL KNEE ARTHROPLASTY Left 05/08/2016 partial TRANSESOPHAGEAL ECHOCARDIOGRAM (CHANTELLE) 04/25/2022 at [place] URETERAL STENT PLACEMENT Left 01/2019 Social History [...] Strain: Low Risk (04/08/2024) Received from [facility] Overall Financial Resource Strain (CARDIA) Difficulty of Paying Living Expenses: Not hard at all Food Insecurity: No Food Insecurity (04/08/2024) Received from [facility] Hunger Vital Sign Within the past 12 months, you worried that your food would run out before you got the money to buymore.: Never true Ran Out of Food in the Last Year: Not on file Transportation Needs: No Transportation Needs (04/08/2024) Received from [facility] Transportation In the past 12 months, has lack of transportation kept you from medical appointments or from getting medications?: No Lack of Transportation (Non-Medical): Not on file Physical Activity: Sufficiently Active (12/17/2023) Exercise Vital Sign Days of Exercise per Week: 7 days Minutes of Exercise per Session: 30 min Stress: Patient Declined (12/17/2023) [place] [employer] - Occupational Stress Questionnaire Feeling of Stress : Patient declined Social Connections: Moderately Isolated (12/17/2023) Social Connection and Isolation Panel [NHANES] Frequency of Communication with Friends and Family: More than three times a week Frequency of Social Gatherings with Friends and Family: More than three times a week Attends Sikh Services: Never Active Member of Clubs or Organizations: No Attends Club or Organization Meetings: Never Marital Status: Intimate Partner Violence: Unknown (04/08/2024) Received from [facility] Humiliation, Afraid, Rape, and Kick questionnaire Fear of Current or Ex-Partner: No Emotionally Abused: Not on file Physically Abused: Not on file Sexually Abused: Not on file Housing Stability: Low Risk (04/08/2024) Received from [facility] Housing Stability Vital Sign In the last 12 months, was there a time when you were not able to pay the mortgage or rent on time?: No Number of Times Moved in the Last Year: Not on file At any time in the past 12 months, were you homeless or living in a fdc (including now)?: No Objective ENT Physical Exam [...] 2 weeks for recheck. documented in this encounterParkland Health [id number] History of Present illness Narrative* Shivani Adams, RAHUL - 09/02/2024 3:00 PM EDT Images from [...] with ENT as scheduled documented in this encounterParkland Health [id number] History of Present illness Narrative* Radha Burris MD - 08/21/2024 2:20 PM EDT Images from the original note were not included. Yoli Antunez is a 69 y.o. male presents with chief complaint of Dental Injury (Patient had tooth removed two weeks ago Saturday at [facility] for tooth removal but the root traveled to sinus. Sx of right ear pain, and thick yellow mucus that started the next day. Has been taking ibuprofen 600mg 3-4 times daily. [facility] sent a couple of referrals to ENT, [...] is being provided by a neurologist at [facility] due to intermittent eye issues. Further evaluation at [place] has been recommended by the neurologist. Vision [...] HISTORY: Past Medical History: Diagnosis Date A-fib ([facility]) 11/2020 [facility] Abdominal aortic aneurysm without rupture ([facility]/HCC) Aortic root dilatation (CMS/HCC) Biliary acute pancreatitis [...] History: Procedure Laterality Date ABLATION A-FIB 11/2020 [facility] APPENDECTOMY CARDIAC SURGERY 09/2020 [facility] CATARACT EXTRACTION Right 02/2022 CHOLECYSTECTOMY 01/02/2022 CT [...] Watchman FLX Lt atrial appendage closure device TX THYROIDECTOMY SUBSTERNAL CERVICAL APPROACH 09/24/2018 RETINAL DETACHMENT SURGERY Left reattach THROAT SURGERY 09/13/2022 throat dilation at THYROID SURGERY TOTAL KNEE ARTHROPLASTY Left 05/08/2016 partial TRANSESOPHAGEAL ECHOCARDIOGRAM (CHANTELLE) 04/25/2022 at [facility] URETERAL STENT PLACEMENT Left 01/2019 REVIEW OF [...] to follow up with the specialist in [place] for further evaluation. - Referral to [place] specialist has been made for further assessment. Assessment/Plan Problem List Items Addressed This Visit None Visit Diagnoses Dental infection - Primary Relevant Medications clindamycin (Cleocin) 300 MG capsule Other Relevant Orders CT SINUS WO IV CONTRAST (Completed) No follow-ups on file. documented in this encounterParkland Health [id number] History of Present illness Narrative* Shashi Pina, - 08/19/2024 9:15 AM EDT Images from [...] headaches. Past Medical History: Diagnosis Date A-fib ([facility]) 11/2020 [facility] Abdominal aortic aneurysm without rupture (CMS/HCC) [...] History: Procedure Laterality Date ABLATION A-FIB 11/2020 [facility] APPENDECTOMY CARDIAC SURGERY 09/2020 [facility] CATARACT EXTRACTION Right 02/2022 CHOLECYSTECTOMY 01/02/2022 CT [...] Watchman FLX Lt atrial appendage closure device TX THYROIDECTOMY SUBSTERNAL CERVICAL APPROACH 09/24/2018 RETINAL DETACHMENT SURGERY Left reattach THROAT SURGERY 09/13/2022 throat dilation at TOTAL KNEE ARTHROPLASTY Left 05/08/2016 partial TRANSESOPHAGEAL ECHOCARDIOGRAM (CHANTELLE) 04/25/2022 at [facility] URETERAL STENT PLACEMENT Left 01/2019 Family History [...] , wrist extensors , wrist flexor , financial management strength 5/5. LUE Strength deltoid , biceps , triceps , wrist extensors , wrist flexor , financial management strength 5/5. RLE Strength illopsoas, quadriceps, tibialis [...] reflex 2+ . Gonzales's sign negative. Coordination: Hzuxhv-ya-zicx testing and rapid alternating movements are normal [...] recommended. I have reviewed extensive notations from [facility] in January 2023 which detailed the patient [...] patient to Dr. Bhavesh Huitron in at [facility] to evaluate further. Signs and symptoms of [...] of pacemaker implantation with Dr. Vilchis in [place]. Certainly close follow up with Cardiology team in [facility] are of the utmost importance. [...] Focality: facial aura: Yes documented in this encounterParkland Health [id number] History of Present illness Narrative* Latoya Redding [...] day the HPI 06/2024 Patient sent from [facility] had him better for low PTH [...] Medical History: Diagnosis Date A-fib (CMS/HCC) 11/2020 [facility] Abdominal aortic aneurysm without rupture ([facility]/HCC) Aortic root dilatation ([facility]) Biliary acute pancreatitis without necrosis or infection [...] History: Procedure Laterality Date ABLATION A-FIB 11/2020 [facility] APPENDECTOMY CARDIAC SURGERY 09/2020 [facility] CATARACT EXTRACTION Right 02/2022 CHOLECYSTECTOMY 01/02/2022 CT [...] Watchman FLX Lt atrial appendage closure device TX THYROIDECTOMY SUBSTERNAL CERVICAL APPROACH 09/24/2018 RETINAL DETACHMENT SURGERY Left reattach THROAT SURGERY 09/13/2022 throat dilation at TOTAL KNEE ARTHROPLASTY Left 05/08/2016 partial TRANSESOPHAGEAL ECHOCARDIOGRAM (CHANTELLE) 04/25/2022 at [facility] URETERAL STENT PLACEMENT Left 01/2019 REVIEW OF [...] Daily - ergocalciferol (Vitamin D-2) 1.25 MG (75598 UT) capsule; Take 1 capsule (1.25 mg) [...] 6 months (around 02/09/2025). documented in this encounterParkland Health [id number] NotePlaced in MRI mode per REP [employer], MRI mode expires 07/28/2024. 90 DOO. Patient tolerated procedure well. Post MRI scan assisted patient to dressing room. Pt has a Biotronik Edora 8 DR-T pacemaker model [id number] RA lead model 653209- RV lead model [id number]- conditional for 1.5 and 3T- normal op mode- whole body 2 W/kg- info in Epic- must be in MRI mode prior to scan- sees [facility] cardiology- 06/07/21 pt has a Watchman FLX [...] pt states his loop recorder was removed- 06/25/24[facility]03-17-[facility] History of Present illness Narrative* Latoya Redding MD - 07/06/2024 10:00 AM EDT Yoli Antunez is a 69 y.o. male Eleonora Leo,* presents with chief complaint of Thyroid Problem (PARATHYROID NEW REF/LAB) HPI: HPI 06/2024 Patient sent from [facility] had him better for low PTH 10 [...] Medical History: Diagnosis Date A-fib (CMS/HCC) 11/2020 [facility] Abdominal aortic aneurysm without rupture (CMS/HCC) [...] History: Procedure Laterality Date ABLATION A-FIB 11/2020 [facility] APPENDECTOMY CARDIAC SURGERY 09/2020 [facility] CATARACT EXTRACTION Right 02/2022 CHOLECYSTECTOMY 01/02/2022 CT [...] Watchman FLX Lt atrial appendage closure device TX THYROIDECTOMY SUBSTERNAL CERVICAL APPROACH 09/24/2018 RETINAL DETACHMENT SURGERY Left reattach THROAT SURGERY 09/13/2022 throat dilation at TOTAL KNEE ARTHROPLASTY Left 05/08/2016 partial TRANSESOPHAGEAL ECHOCARDIOGRAM (CHANTELLE) 04/25/2022 at [facility] URETERAL STENT PLACEMENT Left 01/2019 REVIEW OF [...] all orders for this visit: Postsurgical hypoparathyroidism (CMS/HCC) - CREATINE, 24 HOUR URINE; Future - [...] 6 weeks (around 08/17/2024). documented in this encounterParkland Health [id number] History of Present illness Narrative* Shashi Pina, - 06/22/2024 1:15 PM EST Images from [...] Medical History: Diagnosis Date A-fib (CMS/HCC) 11/2020 [facility] Abdominal aortic aneurysm without rupture (CMS/HCC) [...] History: Procedure Laterality Date ABLATION A-FIB 11/2020 [facility] APPENDECTOMY CARDIAC SURGERY 09/2020 [facility] CATARACT EXTRACTION Right 02/2022 CHOLECYSTECTOMY 01/02/2022 CT ANGIO HEAD 03/05/2023 CT ANGIO HEAD 03/05/2023 CT ANGIOGRAM ABDOMEN 07/06/2021 CT ANGIOGRAM ABDOMEN 07/06/2021 CT ANGIOGRAM ABDOMEN PELVIS 08/24/2021 CT ANGIOGRAM ABDOMEN PELVIS 08/24/2021 CT ANGIOGRAM ABDOMEN PELVIS 09/16/2021 CT ANGIOGRAM ABDOMEN PELVIS 09/16/2021 CT ANGIOGRAM CHEST 07/06/2021 CT ANGIOGRAM CHEST [facility] DATA LEGACY CT ANGIOGRAM HEART CORONARY 08/30/2020 [...] Watchman FLX Lt atrial appendage closure device TX THYROIDECTOMY SUBSTERNAL CERVICAL APPROACH 09/24/2018 RETINAL DETACHMENT SURGERY Left reattach THROAT SURGERY 09/13/2022 throat dilation at TOTAL KNEE ARTHROPLASTY Left 05/08/2016 partial TRANSESOPHAGEAL ECHOCARDIOGRAM (CHANTELLE) 04/25/2022 at [place] URETERAL STENT PLACEMENT Left 01/2019 Family History [...] , wrist extensors , wrist flexor , financial management strength 5/5. LUE Strength deltoid , biceps , triceps , wrist extensors , wrist flexor , financial management strength 5/5. RLE Strength illopsoas, quadriceps, tibialis [...] reflex 2+ . Gonzales's sign negative. Coordination: Uaesjb-tq-mjhg testing and rapid alternating movements are normal [...] recommended. I have reviewed extensive notations from [facility] in January 2023 which detailed the patient [...] of pacemaker implantation with Dr. Vilchis in [place]. Certainly close follow up with Cardiology team in [facility] are of the utmost importance. [...] for tertiary care center for opinion by [facility] neuromuscular institute given the complex cardiac history and concern for seronegative myasthenia gravis. Certainly high-degree medical decision-making with need for extensive investigation in ongoing discussion investigation about potentially life- threatening issue such as myasthenic crisis. Pt has been fully educated on their diagnosis, lab results, treatment options, follow up plan, return instructions, and discussion of mental health issues documented in this encounterParkland Health [id number] History of Present illness Narrative* Eleonora Amita Leo, RN PAIN MANAGEMENT - 06/09/2024 10:00 AM EST Images from [...] Not done Cognitive Screening Three Word Registration: Julius, Arturo, Finger Clock Drawing: Normal Clock - 2 [...] A few weeks prior, he consulted an bss solution architect who conducted an ice test, which yielded positive results. Subsequent preliminary blood work was negative. He has previously sought neurological care at the [facility]. He has a history of smoking but does not recall undergoing any lung screening tests. He is aware ofsome calcification on the left side of his lungs but does not currently follow up with a kettle hand. SOCIAL HISTORY The patient used to smoke [...] HISTORY: Past Medical History: Diagnosis Date A-fib (CMS/HCC) 11/2020 [facility] Abdominal aortic aneurysm without rupture ([facility]/HCC) Aortic root dilatation ([facility]) Biliary acute pancreatitis without necrosis or infection Brain lesion SMALL BRAIN LESION C/W MS Cataract COVID-19 GI bleed History of being hospitalized 12/2021 abd pain, lap ivy History of partial knee replacement left Hypothyroid (CMS/HCC) Kidney stone with mild hydonephrosis Orthostatic hypotension Paroxysmal atrial fibrillation (CMS/HCC) Personal history of medical treatment BORDERLINE MS, MG, ALS Vitreous hemorrhage (CMS/HCC) 08/2017 Macular Pucker Social History Tobacco Use [...] History: Procedure Laterality Date ABLATION A-FIB 11/2020 [facility] APPENDECTOMY CARDIAC SURGERY 09/2020 [facility] CATARACT EXTRACTION Right 02/2022 CHOLECYSTECTOMY 01/02/2022 CT ANGIO HEAD 03/05/2023 CT ANGIO HEAD 03/05/2023 CT ANGIOGRAM ABDOMEN 07/06/2021 CT ANGIOGRAM ABDOMEN 07/06/2021 CT ANGIOGRAM ABDOMEN PELVIS 08/24/2021 CT ANGIOGRAM ABDOMEN PELVIS 08/24/2021 CT ANGIOGRAM ABDOMEN PELVIS 09/16/2021 CT ANGIOGRAM ABDOMEN PELVIS 09/16/2021 CT ANGIOGRAM CHEST 07/06/2021 CT ANGIOGRAM CHEST [facility] DATA LEGACY CT ANGIOGRAM HEART CORONARY [...] Watchman FLX Lt atrial appendage closure device TX THYROIDECTOMY SUBSTERNAL CERVICAL APPROACH 09/24/2018 RETINAL DETACHMENT SURGERY Left reattach THROAT SURGERY 09/13/2022 throat dilation at TOTAL KNEE ARTHROPLASTY Left 05/08/2016 partial TRANSESOPHAGEAL ECHOCARDIOGRAM (CHANTELLE) 04/25/2022 at [facility] URETERAL STENT PLACEMENT Left 01/2019 REVIEW OF [...] tenderness or frontal sinus tenderness. Mouth/Throat: Lips: [place]. Mouth: Mucous membranes are moist. Pharynx: Oropharynx [...] rupture (CMS/HCC) Stable. Arteriosclerosis of coronary artery (CMS/HCC) - Lipid panel; Future Paroxysmal atrial fibrillation (CMS/HCC) Stable. Follows with cardiology. Coronary artery disease involving [place] heart, unspecified vessel or lesion type, unspecified whether angina present (CMS/HCC) Essential hypertension (CMS/HCC) - Comprehensive metabolic panel; Future Discussed current [...] intractable migraine, so stated, with status migrainosus (CMS/HCC) Meniere's disease, unspecified laterality Acquired ptosis of [...] independence. Living will and durable power of erisa attorney reviewed. Updated patient problem list and reviewed all current medications with patient. Given time to ask questions. Assessment & Plan 1. Suspected myasthenia gravis. The patient reports symptoms including eyelid drooping and difficulty keeping the eye open, which occurs two to three times a week and started about 1.5 to 2 months ago. An ice test performed by the bss solution architect was positive, but preliminary blood work was negative. A referral to [facility] in [place] will be initiated for further evaluation. 2. [...] No follow-ups on file. documented in this encounterNOSelect Specialty [id number] Telephone encounter Note* Telephone Encounter - Riley Coleman - 05/28/2024 11:49 AM EST Lab Results given [facility] [id number] Miscellaneous Notes* Telephone Encounter - Riley Coleman - 05/28/2024 11:49 AM EST Lab Results given * Telephone Encounter - Elo Cruz MA - 05/27/2024 8:57 AM EST ----- Message from Dr. Radha Burris sent at 05/26/2024 10:06 PM EST ----- His recent testing requested by the specialist is negative. documented in this encounterParkland Health [id number] Telephone encounter Note* Telephone Encounter - Elo Cruz MA - 05/27/2024 8:57 AM EST ----- Message from Dr. Radha Burris sent at 05/26/2024 10:06 PM EST ----- His recent testing requested by the specialist is negative. Parkland Health [id number] NotePatient here for follow up [facility]. He was seeing Dr. Vilchis in the [...] light-headedness. All other systems reviewed and are negative.[facility] 04-28-2024 [facility]Cardiovascular Medicine [facility] SUBJECTIVE Chief Complaint Patient presents with Coronary Artery Disease Atrial Fibrillation Chest Pain Yoli Richelle Antunez Jr. is a 68 [...] cardiac catheterization 08/2023, POTS who presented to [facility] ED with ongoing chest pain that has [...] (CMS/HCC) Essential hypertension Coronary artery disease involving [place] coronary artery of [place] heart without angina pectoris Recurrent falls History [...] replacement Aphasia Bilateral pa (more content not included)...[facility] 04-10-2024 NoteHospital Medicine Discharge Summary Final Discharge [...] cardiac catheterization 08/2023, POTS who presented to [facility] ED with ongoing chest pain that has [...] Your Medications These medications were sent to [facility] [address] [place] [address] [address] [place] [address] [address] isosorbide mononitrate ER 30 mg 24 hr [...] symmetric air entry. Abdomen: (more content not included)...[facility] 04-10-2024 NoteHospital Medicine Discharge Summary Final Discharge [...] cardiac catheterization 08/2023, POTS who presented to [facility] ED with ongoing chest pain that has [...] Your Medications These medications were sent to [address] [place] [address] [address] isosorbide mononitrate ER 30 mg 24 hr [...] symmetric air entry. Abdomen: (more content not included)...[facility] 04-10-2024 Note Attestation signed by Erika [...] Teaching Physician's Revisions: none Erika Mesa MD [facility] Cardiology Progress Note Subjective Subjective: Patient [...] 81 mg, 81 mg, oral, Daily, Eddi Harrison MD, 81 mg at 04/10/24 1042 atorvastatin [...] 10 millicurie, intravenous, Once in imaging, Eddi Harrison MD, 10 millicurie at 04/10/24 0746 kit prep Tc 99m-sestamibi no.1 (Cardiolite) radio-isotope injection 30 millicurie, 30 millicurie, intravenous, Once in imaging, Eddi Harrison MD, 30 millicurie at 04/10/24 0935 levothyroxine [...] 04/10/24 0827 105/78 36.6 ???C (97.9 ???F) 78 14 94 % -- 04/10/24 0500 -- -- -- -- -- -- 113 kg (250 lb) 04/10/24 0420 97/74 36.6 ???C (97.9 ???F) 81 13 -- -- 04/10/24 0015 109/87 36.8 ???C (98.2 ???F) 81 19 -- -- 04/09/24 1542 90/66 37.3 ???C (99.1 ???F) 81 17 96 % -- Physical Examination: [...] Value Ventricular Rate 79 Atrial Rate 79 TX Interval 246 QRS DURATION 76 QT Interval 384 QTC CALCULATION(BAZETT) 440 R-Switchback 61 T Wave Switchback 224 Impression Atrial-paced rhythm with prolonged AV [...] Bubble Study Result Date: 04/09/2024 1 1 [facility] Heart Station [address] [place] [address] [phone] (fax) Echocardiogram-[facility] Name: YOLI ANTUNEZ Study Date: 04/09/2024 11:49 AM B/P: 123 mmHg/92 mmHg HR: Date of : 1955 Location: [facility] Height: 78 in. Age: 68 year(s) Patient Room: [facility] Weight: 248 lb. Gender: Male Patient Status (more content not included)...[facility] 04-09-2024 NoteHospital Medicine Daily Progress Note - 04/09/2024 11:51 AM; Room: [facility]3109- Admission: 04/08/2024 3:17 PM; Length of stay: 0 days THE HOSPITALIST TEAM PREFERS TO USE [employer] FOR NON-URGENT COMMUNICATION 7AM-7PM. IF I DO NOT RESPOND WITHIN 20 MINUTES OR URGENT MATTERS, PLEASE CALL THROUGH THE B2B SALES EXECUTIVE. FROM 7PM-7AM, PLEASE PAGE [phone](COVR). Code Status: Full Code Barriers to Discharge: [...] pain Active Problems: EMELIA (acute kidney injury) ([facility]) Abnormal ECG Assessment and Plan chest pain, [...] LDL 144 11/05/2019 No results found for: [id number] , IRON , TIBC , C3 , [...] Expected Discharge Disposition: Home or Self Care () Signed Eddi Harrison MD Hospital Medicine 04/09/2024 11:51 [facility] NoteHospital Medicine History and Physical 04/09/2024 2:39 AM THE HOSPITALIST TEAM PREFERS TO USE [employer] FOR NON-URGENT COMMUNICATION 7AM-7PM. IF I DO NOT RESPOND WITHIN 20 MINUTES OR URGENT MATTERS, PLEASE CALL THROUGH THE B2B SALES EXECUTIVE. FROM 7PM-7AM, PLEASE PAGE [phone](COVR). Chief Complaint Chief Complaint Patient presents with Chest Pain Shortness of Breath History of Present Illness Yoli Antunez Jr. is an 68 y.o. 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 Patient presented to [facility] ED with c/o chest pain. Patient reports [...] at times. He reports he saw his manager document control today who performed an EKG which showed acute lead inversions prompting manager document control to send him into the ED. Patient [...] negative. BNP unremarkable 66. Patient admitted to [place] with cardiology consult for further evaluation and [...] pain Active Problems: EMELIA (acute kidney injury) ([facility] Abnormal ECG Assessment and Plan Chest pain [...] and PT, PT/INR, APTT (more content not included)...[facility]12-18-2024 NoteSYNCOPE AND AUTONOMIC DISORDERS CLINIC Reason for Consultation: Acute chest pain HPI: Yoli Tolbert Tigistcharlesjordi Isidro is a 68 y.o. year [...] angina and have sent him to the [facility] emergency room for further evaluation. I called the emergency room physician and spoke with them personally and also called the die welder on the inPatient's service and spoke with [...] MR HEAD ANGIO WO IV CONTRAST 07/09/2022 [facility] MR IMAGING MR NECK ANGIO WO IV CONTRAST 07/09/2022 MR NECK ANGIO WO IV CONTRAST 07/09/2022 [facility] MR IMAGING NECK SURGERY THYROIDECTOMY SH: Social Determinants of Health Tobacco Use: Medium Risk (04/08/2024) Patient History Smoking Tobacco Use: Former Smokeless Tobacco Use: Former Passive Exposure: Not on file Alcohol Use: Not At Risk (12/17/2023) Received from [facility] [employer], [facility] [employer] AUDIT-C Frequency of Alcohol Consumption: Monthly or [...] Physical Activity: Sufficiently Active (12/17/2023) Received from [facility] Exercise Vital Sign Days of Exercise per Week: 7 days Minutes of Exercise per Session: 30 min Stress: Patient Declined (12/17/2023) Received from [facility] [place] [facility] - Occupational Stress Questionnaire Feeling of Stress : Patient declined Social Connections: Moderately Isolated (12/17/2023) Received from [facility] Social Connection and Isolation Panel [NHANES] Frequency of Communication with Friends and Family: More than three times a week Frequency of Social Gatherings with Friends and Family: More than three times a week Attends Sikh Services: Never Active Member of Clubs or Organizations: No Attends Club or Organization Meetings: Never Marital Status: Intimate Partner Violence: Not At Risk (01/27/2024) Humiliation, Afraid, Rape, and Kick questionnaire Fear of Current or Ex-Partner: No Emotionally Abused: No Physically Abused: No Sexually Abused: No Depression: Not at risk (02/06/2024) Received from [facility] PHQ-2 Patient Health Questionnaire-2 Score: 0 Housing Stability: Low Risk (01/27/2024) Housing Stability Vital Sign Unable to Pay for Housing in the Last Year: Not on file Number of Places Lived in the Last Year: Not on file Unstable Housing in the Last Year: No Utilities: Not At Risk (01/27/2024) [facility] Utilities Threatened with loss of utilities: No Health Literacy: Adequate Health Literacy (12/17/2023) Received from [facility] B1300 Health Literacy Frequency of need for help with medical instructions: Never Meds: No current facility-administered medications on file prior to visit. (more content not included)...[facility]11-20-2024 Note [facility]OPE [facility] AUTONOMIC DISORDERS CLINIC Reason [...] I spent more than 45 minutes in yhmf-bu-gxgp patient counseling and therapeutic decision making with [...] MR HEAD ANGIO WO IV CONTRAST 07/09/2022 [facility] MR IMAGING MR NECK ANGIO WO IV CONTRAST 07/09/2022 MR NECK ANGIO WO IV CONTRAST 07/09/2022 [facility] MR IMAGING NECK SURGERY THYROIDECTOMY SH: Social Determinants of Health Tobacco Use: Medium Risk (02/06/2024) Received from [facility] Patient History Smoking Tobacco Use: Former Smokeless Tobacco Use: Never Passive Exposure: Not on file Alcohol Use: Not At Risk (12/17/2023) Received from [facility] AUDIT-C Frequency of Alcohol Consumption: Monthly or [...] Physical Activity: Sufficiently Active (12/17/2023) Received from [facility] Exercise Vital Sign Days of Exercise per Week: 7 days Minutes of Exercise per Session: 30 min Stress: Patient Declined (12/17/2023) Received from [facility] [place] [facility] - Occupational Stress Questionnaire Feeling of Stress : Patient declined Social Connections: Moderately Isolated (12/17/2023) Received from [facility] Social Connection and Isolation Panel [NHANES] Frequency of Communication with Friends and Family: More than three times a week Frequency of Social Gatherings with Friends and Family: More than three times a week Attends Sikh Services: Never Active Member of Clubs or Organizations: No Attends Club or Organization Meetings: Never Marital Status: Intimate Partner Violence: Not At Risk (01/27/2024) Humiliation, Afraid, Rape, and Kick questionnaire Fear of Current or Ex-Partner: No Emotionally Abused: No Physically Abused: No Sexually Abused: No Depression: Not at risk (02/06/2024) Received from [facility] PHQ-2 Patient Health Questionnaire-2 Score: [address] (more content not included)...[facility] 02-26-2024 NoteSYNCOPE AND AUTONOMIC DISORDERS CLINIC Reason for Consultation: Follow-up of new onset atrial fibrillation HPI: Yoli Antunez Jr. is a 68 [...] occurred. I spent over 45 minutes in inte-sd-ybmkXtqbita counseling and therapeutic decision making during which [...] MR HEAD ANGIO WO IV CONTRAST 07/09/2022 [facility] MR IMAGING MR NECK ANGIO WO IV CONTRAST 07/09/2022 MR NECK ANGIO WO IV CONTRAST 07/09/2022 [facility] MR IMAGING NECK SURGERY THYROIDECTOMY SH: [...] Year: No Utilities: Not At Risk (01/27/2024) [facility] Utilities Threatened with loss of utilities: No [...] pain Nose: no frequent (more content not included)...[facility]10-21-2024 Telephone encounter Note* Telephone Encounter - Riley Coleman - 02/10/2024 11:10 AM EDT Jamil was in last week for rash - was told if not better to call the office . It isnt any better -asking if something else can be called in [facility] [id number] Miscellaneous Notes* Telephone Encounter - Riley Coleman - 02/10/2024 11:10 AM EDT Jamil was in last week for rash - was told if not better to call the office . It isnt any better -asking if something else can be called in [facility] documented in this encounterParkland Health CenterFmpopquzrm86-72-5863 History of Present illness Narrative* Radha Burris [...] couple months. Rash has stayed the same. [facility] on 01/29 patient went in for chest pain dueto afib but chest pain has stopped since then. ) HPI: HPI History of Present Illness The patient presents for evaluation of multiple medical concerns. He experienced chest pain, initially thought to be a recurrence of atrial fibrillation (AFib). However, his manager document control confirmed that he is no longer in [...] treatment. Three referrals were sent to the [facility], but they claim to have lost [...] PLAN: Assessment & Plan 1. Anxiety. The manager document control confirmed that the recent chest pain was [...] been issues with the referral to the [facility] for his gastrointestinal problems, with multiple attempts to send the referral being unsuccessful. The team will call the [facility] today to ensure all necessary information is provided and expedite the referral process. Assessment/Plan Problem List Items Addressed This Visit Anxiety - Primary Relevant Medications FLUoxetine (PROzac) 20 MG capsule Paroxysmal atrial fibrillation (CMS/HCC) Now back in sinus. Methods Specialist wants the anxiety treated. Discussed in detail with him today. Other Visit Diagnoses Dermatitis Relevant Medications mometasone (Elocon) 0.1 % ointment Family History Problem Relation Name Age of Onset Lung cancer Mother Hypertension Mother Stroke Mother Aneurysm Father Lung cancer Father Hypertension Father No Known Problems Brother Flowsheet Row Patient Outreach from 10/14/2023 in [facility] with Radha Taylor RN Hospital Information ED, Hospital or Senior Living Facility Discharge? ED Patient has been contacted within 1 week of being seen in the ED No Have two attempts been made to contact the patient within one week of being seen in the ED? No Discharge Date 10/05/23 Discharged To: Home Setting Discharge Hospital [facility] Engagement Call Start Time 1200 Medications Discharge [...] Up Wrap Up Additional Comments Pt to [facility] 10/05/23. He presented with left index finger infection - he drilled a screw into finger. He was eval, treated and dc to home. DX: Cellulitis and Chest pain. New prescription given: Doxycycline. Call End Time 1206 No follow-ups on file. documented in this encounterParkland Health [id number] NoteUT Electrophysiology Consult Note [place] [facility] - [facility] Reason for visit: Atrial fibrillation 02/04/24 [...] had A-fib ablation by [facility] in [place] with PVI plus posterior box isolation was performed with a repeat ablation by her again. Due to the recurrence he presented to [place] for repeat PVI which was performed on [...] MR HEAD ANGIO WO IV CONTRAST 07/09/2022 [facility] MR IMAGING MR NECK ANGIO WO IV CONTRAST 07/09/2022 MR NECK ANGIO WO IV CONTRAST 07/09/2022 [facility] MR IMAGING NECK SURGERY THYROIDECTOMY SH: [...] Year: No Utilities: Not At Risk (01/27/2024) [facility] Utilities Threatened with loss of utilities: No [...] mouth in the mornin (more content not included)...[facility]10-10-2024 Note Patient provided copy of AVS and discharge instructions. All questions and concerns addressed. Patient declined being wheeled down in wheelchair. Patient ambulated independently to front entrance without assistance.[facility]10-10-2024 NoteHospital Medicine Discharge Summary Final Discharge Diagnosis: Atrial fibrillation with rapid ventricular response Admission Diagnosis: Chest pain [R07.9] Hospital course: Yoli Antunez Jr. is an 68 y.o. male who came from home with past medical history of A-fib s/p watchman, hypertension, hypothyroidism, CKD 3, POTS, CAD s/p PCI, SSS s/p PPM, aneurysm of ascending aorta presents as a direct admission from [facility] with a chief complaint of chest pain and plan for cardiac cath. Patient initially went to [facility] this past Saturday with intermittent chest tightness/pain [...] Center 02/26/2024 9:30 AM [facility] Your medication list START taking these medications [...] Your Medications These medications were sent to [facility] [address] [place] [address] [address] [place] [address] [address] atorvastatin 40 mg tablet sotalol 80 mg [...] and documentation was 60 minutes. Signed Eddi Harrison MD Hospital Medicine 01/30/2024 10:10 AM CC: MD FatumaFulton County Health Center10-10-2024 NoteUTP CARDIOLOGY INPATIENT PROGRESS NOTE Reason for [...] sotalol received. Tele: atrial pacing on demand/SR 55- ALLERGIES Allergies Allergen Reactions Penicillins Other As [...] Value Ventricular Rate 56 Atrial Rate 56 TX Interval 202 QRS DURATION 90 QT Interval 508 QTC CALCULATION(BAZETT) 490 P Switchback 77 R-Switchback 36 T Wave Switchback 73 Impression Atrial-paced rhythm Prolonged QT Abnormal ECG When compared with ECG of 29-JAN-2024 15:54, Electronic atrial pacemaker has replaced Sinus (more content not included)...[facility] 01-29-2024 Note As the teaching physician, I have personally performed or re- performed the history of present illness, physical exam and medical decision-making activities of the encounter and verified the medical student's documentation. I made pertinent changes as necessary to ensure accurate documentation. There may be additional comments below. [facility]10-09-2024 Note Hospital Medicine Daily Progress Note - 01/29/2024 11:02 AM; Room: 310/3102-01 Admission: 01/27/2024 5:54 PM; Length of stay: 2 days THE HOSPITALIST TEAM PREFERS TO USE [employer] CHAT FOR COMMUNICATION 7AM-7PM. IF I DO NOT RESPOND WITHIN 15 MINUTES, PLEASE PAGE ME/CALL THROUGH THE B2B SALES EXECUTIVE. FROM 7PM-7AM, PLEASE PAGE [phone](COVR) Code Status: Full Code Overview Patient is seen for evaluation and management of chest pain and plan for heart cath (direct admit from [facility]) Subjective Patient examined at bedside today. States [...] sinus syndrome (CMS/HCC) Coronary artery disease involving [place] coronary artery of [place] heart Atrial fibrillation with RVR (CMS/HCC) Assessment and Plan Yoli Antunez is an 68 y.o. male who came from home with past medical history of A-fib s/p watchman, hypertension, hypothyroidism, CKD 3, POTS, CAD s/p PCI, SSS s/p PPM, aneurysm of ascending aorta presents as a direct admission from [facility] with a chief complaint of chest pain [...] days Lab Units 01/29/24 0515 01/28/24 0933 01/28/2441001/27/24 1828 SODIUM mmol/L 141 -- 140 138 [...] LDL 144 11/05/2019 No results found for: [id number] , IRON , TIBC , C3 , C4 , KYLE , CANCA , ASO , PSA , CEA , CA125 , CA199 , AFP , CA153 Imaging ECG 12 lead Normal sinus rhythm with sinus arrhythmia Nonspecific T wave abnormality Prolonged QT Abnormal ECG Discharge Planning Discharge Planning Type of Residence: Private residence Patient's goal for discharge: home Signed Norris Winter, MS4 [facility] Medicine 01/29/2024 11:02 [facility]10-09-2024 NoteUTP CARDIOLOGY INPATIENT PROGRESS NOTE Reason for [...] -- Temporal 77 14 100 % -- 01/28/242035 112/80 36.7 ???C (98 ???F) Temporal 80 16 95 % -- 01/28/242012 110/76 -- -- 94 -- 98 % [...] Value Ventricular Rate 65 Atrial Rate 65 TX Interval 182 QRS DURATION 80 QT Interval 472 QTC CALCULATION(BAZETT) 490 P Switchback 23 R-Switchback 29 T Wave Switchback 81 Impression Demand atrial pacing Nonspecific T [...] 4:40:31 PM QT Interval: 392 ms P Switchback: 67 degrees T Wave Switchback: 156 degrees QTC CALCULATION(BAZETT): 437 ms Ventricular Rate: 7 (more content not included)...[facility]10-08-2024 Note As the teaching physician, I have personally performed or re-performed the history of present illness, physical exam and medical decision-making activities of the encounter and verified the medical student's documentation. I made pertinent changes as necessary to ensure accurate documentation. There may be additional comments below. [facility]10-08-2024 Note Pharmacy Consult for Sotalol - Daily [...] Value Ventricular Rate 110 Atrial Rate 110 TX Interval 204 QRS DURATION 90 QT Interval 320 QTC CALCULATION(BAZETT) 433 P Switchback 35 R-Switchback -5 T Wave Switchback 211 Impression Sinus tachycardia Nonspecific ST and [...] or concerns. Thank you for the consult! aPnchito Valerio PharmD 01/28/2024[facility]24 Note01/28/24 1030 Admission Assessment Questions Verify insurance [...] Not Interested Does the patient have a spring encaser assigned to them through their insurance? No [...] No Do you understand the benefits of My Own Med[employer]? Yes Were you able to send link and activate My Own Medhart? MyChart already active [facility]10-08-2024 NoteHospital Medicine Daily Progress Note - 01/28/2024 10:27 AM; Room: [address] [place] [address] Admission: 01/27/2024 5:54 PM; Length of stay: 1 days THE HOSPITALIST TEAM PREFERS TO USE [employer] CHAT FOR COMMUNICATION 7AM-7PM. IF I DO NOT RESPOND WITHIN 15 MINUTES, PLEASE PAGE ME/CALL THROUGH THE B2B SALES EXECUTIVE. FROM 7PM-7AM, PLEASE PAGE [phone](COVR) Code Status: Full Code Overview Patient is seen for evaluation and management of chest pain and plan for heart cath (direct admit from [facility]) Subjective Patient examined at bedside today. States [...] sinus syndrome (CMS/HCC) Coronary artery disease involving [place] coronary artery of [place] heart Atrial fibrillation with RVR (CMS/HCC) Assessment and Plan Yoli Antunez Jr. is an 68 y.o. male who came from home with past medical history of A-fib s/p watchman, hypertension, hypothyroidism, CKD 3, POTS, CAD s/p PCI, SSS s/p PPM, aneurysm of ascending aorta presents as a direct admission from [facility] with a chief complaint of chest pain [...] LDL 144 11/05/2019 No results found for: CRPNQKAV01 , IRON , TIBC , C3 , [...] on 01/27/2024 10:39:18 PM Discharge Planning Signed URMILA De Souza Hospital Medicine 01/28/2024 10:27 [facility]10-07-2024 NoteHospital Medicine History and Physical 01/27/2024 7:22 PM THE HOSPITALIST TEAM PREFERS TO USE [employer] CHAT FOR NON-URGENT COMMUNICATION 7AM-7PM. IF I DO NOT RESPOND WITHIN 20 MINUTES OR URGENT MATTERS, PLEASE CALL THROUGH THE B2B SALES EXECUTIVE. FROM 7PM-7AM, PLEASE PAGE [phone](COVR). Chief Complaint Direct admit from [facility] with chest pain History of Present Illness Yoli Tolbert Harmony Isidro is an 68 y.o. male who came from home with past medical history of A-fib s/p watchman, hypertension, hypothyroidism, CKD 3, POTS, CAD s/p PCI, SSS s/p PPM, aneurysm of ascending aorta presents as a direct admission from [facility] with a chief complaint of chest pain and plan for cardiac cath. Patient initially went to [facility] this past Saturday with intermittent chest tightness/pain [...] sinus syndrome (CMS/HCC) Coronary artery disease involving [place] coronary artery of [place] heart Assessment and Plan Yoli Antunez Amarjit is an 68 y.o. male who came from home with past medical history of A-fib s/p watchman, hypertension, hypothyroidism, CKD 3, POTS, CAD s/p PCI, SSS s/p PPM, aneurysm of ascending aorta presents as a direct admission from [facility] with a chief complaint of chest pain [...] hypertension, continue medications #Hypothyroi (more content not included)...[facility] 01-20-2024 History of Present illness Narrative* Sofia [...] Take medications as prescribed. documented in this encounterParkland Health [id number] History of Present illness Narrative* Shivani Adams NP - 01/13/2024 1:30 PM EDT Images from [...] Thoracic aortic ectasia (CMS/HCC) documented in this encounterParkland Health CenterGsyuxqkgob94-25-5290 Evaluation note* Type Assessment Date assessment Other cervical disc degeneration , unspecified cervical region [employer] Work Phone: 1(603) 519-787509-12-2024 History of Present illness Narrative* Encounter Date [...] back for a follow up from his manager document control. New Problem Spine-cervical Locat ion: Pain diagram [...] [facility] New Problem Spine-cervical Locat ion: Bilateral cervical spine. Left anterior shoulder. Pain diagram reviewed and is filed in the patients chart . Severity: Current pain level: 5/10. Lowest pain level: 10. Highest pain level: /10. Duration: 6 months. constant Yes. Pain has [...] well up until a few months ago. [place] [facility] Work Phone: 1(826) 838-357809-03-2024 History of Present illness Narrative* Radha Burris [...] medication, he has not found relief. His manager document control, Dr. Vilchis, is uncertain if these symptoms [...] is seeking a referral to a new office machine mechanic as he was dissatisfied with his previous [...] addition of sildenafil or tadalafil by his manager document control, it is prudent not to alter his [...] referral will be made to a new office machine mechanic for further evaluation and management of his diarrhea. He has tried multiple medications, including cholestyramine and Imodium, without significant relief. Assessment/Plan Problem List Items Addressed This Visit Angina at rest (CMS/HCC) Other Visit Diagnoses Diarrhea, unspecified type - Primary Relevant Orders Ambulatory referral to Gastroenterology Autonomic dysfunction documented in this encounterParkland Health [id number] History of Present illness Narrative* María Pearl APRN.[facility] - 05/31/2023 10:45 AM EST Yoli Antunez is a 68 year old male. Patient presents with: Follow Up Today I had the opportunity to have a virtual visit with Yoli Antunez I have communicated my name and active licensure. The patient's identity and physical location wereverified at the time of this visit. Either the patient or their legal field representative has been informed of the risks [...] will repeat tilt table testing here at [facility]. We reviewed the diagnosis of orthostatic [...] was seen by Dr. Vilchis at the [facility] yesterday. Dr. Vilchis feels that Jamil has sick sinus syndrome. He is going to have a pacemaker placed. Jamil is going to have an echocardiogram and stress test next week. Pacemaker to follow the above testing. Skin nerve biopsy here at [facility] not indicative of small fiber neuropathy. [...] He was seen by Dr. Vilchis at [facility] who would like to place a [...] which included preparing to see the patient, lcyg-vc-fapn patient care, completing clinical documentation, obtaining and/or [...] this visit on 05/31/23. María Pearl MSN, SALES PROJECT COORDINATOR, MOLD MAKING PLASTICS SHEETS SUPERVISOR-C documented in this encounterThe Surgical Hospital At [facility]woods01-29-2024 Evaluation note* Encounter Date Diagnosis Assessment Notes Treatment Notes Treatment Clinical Notes Apr, Abdominal pain (ICD-10 - R10.9) Apr, Diarrhea (ICD-10 - R19.7) [employer] Other [facility]2023 [facility]* Encounter Date Diagnosis Assessment Notes Treatment Notes Treatment Clinical Notes Mar, Abdominal pain (ICD-10 - R10.9) Mar, Diarrhea (ICD-10 - R19.7) [employer] Other 11-29-2023 Evaluation note* Encounter Date Diagnosis Assessment Notes Treatment Notes Treatment Clinical Notes Feb, Diarrhea (ICD-10 - R19.7) Feb, Hiatal hernia (ICD-10 - K44.9) [facility] [employer] Other 11-06-2023 History of Present illness Narrative* Joann Stark PA-C - 02/25/2023 2:09 PM EST Skin Biopsy Procedure Note Skin Biopsy Accession Number: [id number] Biopsy Date: 02/25/2023 Referring physician: María Pearl [...] Procedure Note Procedure confirmed with provider and production support supervisor. Yes, left leg 2 skin biopsies. The [...] home. Specimens were labeled and sent to [facility] Cutaneous [facility]. Procedure was performed by: Joann Stark PA-C Assistance in supply/equipment preparation performed by: DAVID Downs Sign out is complete. documented in this encounterThe [facility]10-17-2023 Miscellaneous Notes* Telephone Encounter - Shivani Nath RN - 02/05/2023 1:00 PM EDT Images from the original note were not included. María Pearl APRN.ORDER PACKER You 7 minutes ago (12:52 PM) This is a normal result. [place] YAMILA Carnes, RN * Telephone Encounter - Shivani Nath RN - 02/05/2023 12:48 PM EDT Images from the original note were not included. Copper: YAMILA Carnes, RN * Telephone Encounter - Aydee Hunter - 02/05/2023 12:06 PM EDT Scanned in results from [facility] for review documented in this encounterThe [facility] Hospital At Southwoods10-12-2023 History of Present illness Narrative* Yossi Chen [...] and scan are done. [facility] Work Phone: 1([phone] 447-146610-12-2023 Instructions* Patient Instructions* Yossi Chen MD - 01/31/2023 3:00 PM EDT I will get stool culture and CT scan to figure out the reason for the abdominal pain and diarrhea documented in this [facility] Work Phone: 1([phone]) 852-304110-09-2023 Miscellaneous Notes* Telephone Encounter - Dominique Burns RN - 01/28/2023 4:08 PM EDT Images from the original note were not included. María Pearl APRN.ORDER PACKER You 6 hours ago (9:39 AM) I have a message out to headache clinic about adjusting his medication. YAMILA Cage, RN, BA documented in this encounterThe Surgical Hospital At Southwoods10-09-2023 Miscellaneous Notes* Telephone Encounter - Dominique Burns RN - 01/28/2023 3:39 PM EDT JESSICA sent MCM to patient. Patient read. YAMILA Cage, RN, BA documented in this encounterThe Surgical Hospital At Southwoods10-09-2023 Miscellaneous Notes* Telephone Encounter - Dominique Burns RN - 01/28/2023 10:43 AM EDT Images from the original note were not included. María Pearl APRN.ORDER PACKER You 15 minutes ago (10:27 AM) Thank you. Appears normal. YAMILA Vivar, RN, BA * Telephone Encounter - Dominique Burns RN - 01/28/2023 9:58 AM EDT Images from the original note were not included. YAMILA Cage, RN, BA * Telephone Encounter - ElsaAydee - 01/28/2023 9:36 AM EDT Scanned in results from [facility] for review documented in this encounterThe Surgical Hospital At [facility]woods09-11-2023 History of Present illness Narrative* Kassie Richardson APRN.ORDER PACKER - 12/31/2022 3:15 PM EDT Head[facility] Follow up visit December 31, 2022 Chief [...] He was evaluated by Cardiology at the [facility] for syncopal episodes. 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 put in in the front cartridge loader and helped him to the house [...] essentially unremarkable including troponins and ECG 09/11/2022 [facility]- Cardiology - Jackie Banks RN PAIN MANAGEMENT wrote: I copied and pasted [facility] for [facility] of care: Hx paroxysmal atrial fibrillation. Undervent a watchman device implant at [facility] 03/06/2022. History of CAD. AAA not [...] Last evaluated one month ago [facility]. Recent MRA MRV. HPI: Syncope began about [...] Items Addressed This Visit [facility]; Headache 1 Onset: - Migraine headache s [...] AAA (abdominal aortic aneurysm) without rupture ([facility]) Arthritis Atrial fibrillation/flutter CAD (coronary artery disease) CKD (chronic kidney disease) stage 3, GFR 30-59 ml/min (HCC) Ex-smoker Gastric ulcer GERD (gastroesophageal reflux disease) Gout History of GI bleed HLD (hyperlipidemia) Hypertension 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 ADA treated with BiPAP Peripheral neuropathy Restless leg syndrome TIA (transient ischemic attack) x 2 ALLERGIES Allergen Reactions Penicillins Unknown Tikosyn [Dofetilide] Other: See Comments Aphasia, dizzy, muscle cramps Vancomycin Anaphylaxis MR neck / head angio 07/09/2022- at [facility] Impression No gross evidence for flow-limiting stenosis of bilateral extrarenal vertebral or carotid arteries accounting for extensive patient motion artifact. If persistent concern for an abnormality of the carotid or vertebral arteries, consider CTA if clinically indicated. Impression No focal stenosis, occlusion, or aneurysmal dilatation. Complete pala of Michel. CT brain 05/23/2022 Impression *Negative [...] osteopenia, and partially imaged atlantoaxial arthritic changes. Security Project Manager (topogram) images: No additional findings. HEADACHE [...] articulation, and clear,coherent, and relevant. Short and custodial memory, cognition and general fund of knowledge [...] followed by aphasia. He was evaluated in [place] for syncope - felt it was neurocardiogenic [...] which included preparing to see the patient, posz-eh-rqso patient care, completing clinical documentation, obtaining and/or reviewing separately obtained history, performing a medically appropriate examination, counseling and educating the patient/family/caregiver, and ordering medications, tests, or procedures. Kassie Richardson APRN.[facility] Headache Section [facility] December 31, 2022 5:03 PM documented in this encounterThe Surgical Hospital At Southwoods08-03-2023 NoteSend Summary: Discharge Summary Providers: Provider RoleProvider Name Radha Jorge Abraham PrimaryHohman, Jennifer Note Recipients: Radha Burris MD - [id number] [] Discharge: Summary: Admission Date: .21-Nov-2022 05:06:00 [...] discharge: Full Code Electronic Signatures: Sivan Costa (BRENNA-NEETU) (Signed 22-Nov-2022 12:13) Authored: Send Summary, Summary Content, Ongoing Care, DNR Status Yossi Chen) (Signed 22-Nov-2022 12:27) Authored: Summary Content, Ongoing Care, Note Completion Last Updated: 22-Nov-2022 12:27 by Yossi Chen)[facility] 11-21-2022 NotePost Operative Note: PreOp Diagnosis: symptomatic hiatal hernia Post-Procedure Diagnosis: same Procedure: 1. Laparoscopic repair of Type 3 paraesophageal hernia with Toupet wrap and gastroscopy 2. 3. 4. 5. Surgeon: April Resident/Fellow/Other Client Services Director: Adrián/Elio Estimated Blood Loss (mL): none Specimen: [...] esophagus to the right side. A lighted 56-Nicaraguan bougie was placed. The shoeshine maneuver was [...] #1 Ethibond with a Tony-Ran in a vtrhkl-aw-yaukf fashion. The liver retractor was removed. The [...] Completion Last Updated: 21-Nov-2022 13:27 by Yossi Chen)[facility] 11-21-2022 History of Present illness Veywcmjwf03-butn-fsw patient who underwent laparoscopic repair of paraesophageal [...] it down withwater. Denies heartburn and acid reflux.-[place] [address] DO Work Phone: 1(789) 141-694808-02-2023 History of Present illness Narrative 67-year-old patient [...] reflux, heartburn and having less coughing with meal-[facility] [address] DO Work Phone: 1(934) 971-162608-02-2023 NoteHistory & Physical Reviewed: I have reviewed [...] Completion Last Updated: 21-Nov-2022 07:15 by Yossi Chen)[facility] 11-16-2022 Miscellaneous Notes* Telephone Encounter - Kyle Scotta - 11/16/2022 5:55 PM EDT Received faxed report of medical records done at . Uploaded via [employer], will be available in [place] for review shortly. documented in this encounterThe Surgical Hospital At Southwoods07-03-2023 Miscellaneous Notes* Telephone Encounter - Kassie Richardson APRN.CNP - 10/22/2022 4:33 PM EDT Opened in error Kassie Richardson APRN.NEETU documented in this encounterThe [facility] Hospital [facility]woods06-29-2023 History of Present illness Narrative* Michaela Polo [...] discharged from treatment room. documented in this encounterThe Surgical Hospital [facility] Southwoods06-26-2023 NotePROCEDURE DETAILS Preoperative Diagnosis: Sleep apnea, G47.30 Postoperative Diagnosis: Sleep Apnea Surgeon: Arabella Terry Resident/Fellow/Other Client Services Director: None of these were associated with this [...] Completion Last Updated: 15-Oct-2022 11:11 by Arabella Terry)[facility]06-26-2023 Miscellaneous Notes* Op Note - Arabella Butt MD - 10/15/2022 11:02 AM EDT PROCEDURE DETAILS Preoperative Diagnosis: Sleep apnea, G47.30 Postoperative Diagnosis: Sleep Apnea Surgeon: Arabella Terry Resident/Fellow/Other Client Services Director: None of these were associated with this [...] 11:11 by Arabella Terry) documented in this [facility] Work Phone: 1(318) 792-491406-26-2023 Note* Op Note - Arabella Butt MD - 10/15/2022 11:02 AM EDT PROCEDURE DETAILS Preoperative Diagnosis: Sleep apnea, G47.30 Postoperative Diagnosis: Sleep Apnea Surgeon: Arabella Terry Resident/Fellow/Other Client Services Director: None of these were associated with this [...] Last Updated: 15-Oct-2022 11:11 by Arabella Terry) [facility] Work Phone: 1(283) 456-624906-06-2023 Chief complaint Narrative - Reported* An interactive audio and video telecommunication system which permits real time communications between the patient (at the originating site) and provider (at the distant site) was utilized to providethis telehealth service. * Verbal consent was requested and obtained from YOLI ANTUNEZ on this date, 09/25/2022 02:30 PM, for a telehealth visit. * Dysphagia follow-up [facility] Work Phone: 1(922) 475-376205-25-2023 History of Present illness Narrative* 67 year [...] more in his throat. Seeing neurology at [facility] for his intermittent aphasia. Still awaiting manometry results. * 09/04/22: * Here for follow-up. Esophagram completed 08/10/22 with moderate hiatal hernia, possible inflammatorynarrowing at GEJ, also area of mucosal irregularity for which endoscopy was recommended. He had manometry placed under endoscopy on 08/30/22, overall esophagus appeared normal on their exam with gsvwd7fb nodule at GEJ that was biopsied. Pathology [...] esophagus and pill sticking in the vallecula RW[facility]Ipmtnhexlmezkw[facility]Lztrwtf Work Phone: 1(250) 525-727105-16-2023 History of Present illness Narrative* 67 year [...] esophagus appeared normal on their exam with ldofz3bi nodule at GEJ that was biopsied. Pathology [...] esophagus and pill sticking in the vallecula [facility]-Nmefebxgrdpzqy-[facility]hh Work Phone: 1(119) 596-551905-16-2023 Chief complaint Narrative - Reported* An interactive audio and video telecommunication system which permits real time communications between the patient (at the originating site) and provider (at the distant site) was utilized to providethis telehealth service. * Verbal consent was requested and obtained from YOLI ANTUNEZ on this date, 09/04/2022 11:30 AM, for a telehealth visit. * Dysphagia follow-up [facility] Work Phone: 1([phone] 271-481605-11-2023 NotePatient Name: Yoli Antunez Procedure Date: 08/30/2022 7:32 AM Date of : 1955 Admit Type: Outpatient Site: [facility] Procedure Room 5 Ethnicity: Not or Race: White Attending MD: ELISEO Williamson, [id number] Procedure: Upper GI endoscopy Indications: Dysphagia for 5 years to both liquids and solids Patient Profile: This is a 67 year old male. Refer to note in patient chart for documentation of history and physical. Providers: ELISEO Williamson (Doctor), Jaylen Lo RN (Nurse), Florentino De Dios, Director Telehealth, Kristin Mcdaniels RN (Nurse) Referring: Radha Burris [...] specimen was done by the nurse and security installation technician using the patient's name and medical record number. Estimated blood loss was minimal. A single 3 mm nodule was found at the gastroesophageal junction, 39 cm from the incisors. Biopsies were taken with a cold forceps for histology. Verification of patient identification for the specimen was done by the nurse and security installation technician using the patient's name and medical [...] and technici (more content not included)...PROVATION - [id number] Reason for visit Narrative* An interactive audio and video telecommunication system which permits real time communications between the patient (at the originating site) and provider (at the distant site) was utilized to providethis telehealth service. * Verbal consent was requested and obtained from YOLI ANTUNEZ on this date, 08/13/2022 03:15 PM, for a telehealth visit. [facility] [address] [place] Work Phone: 1([phone]) [phone] Chief complaint Narrative - Reported* An interactive audio and video telecommunication system which permits real time communications between the patient (at the originating site) and provider (at the distant site) was utilized to providethis telehealth service. * Verbal consent was requested and obtained from YOLI ANTUNEZ on this date, 07/31/2022 12:30 PM, for a telehealth visit. * [facility] RL-Ozkayceqaveogc-Jbxasxs Work Phone: 1(484) 178-226704-11-2023 History of Present illness Narrative* 67 year [...] esophagus and pill sticking in the vallecula JI-Rmnjnksygdaovh-Lscyabm Work Phone: 1([phone]) 618-823804-10-2023 Miscellaneous Notes* Telephone Encounter - Jonathan Pascual - 07/30/2022 3:40 PM EDT Received call from patient regarding Message Per Patient Local ERs do not understand patients symptoms, would like to know if he can receive response from provider urgently * Telephone Encounter - Jessica Mccoy Pss - 07/30/2022 3:13 PM EDT Patient last seen 05/31/2022, but had infusions 07/26/2022. documented in this encounterThe [facility]04-06-2023 History of Present illness Narrative* Eleonora Cabral RN - 07/26/2022 1:52 PM EDT 13:35 Patient admitted to infusion unit and history reviewed, medications and allergies updated. Patient has 3/10 headache and no nausea, no dizziness at this time. Patient has first Vyepti infusion of 100 mg. 1424 Patinet discharged no problems with infusion , instructed on 45 day follow-up. documented in this encounterThe Surgical Hospital At Southwoods04-03-2023 Miscellaneous Notes* Telephone Encounter - Fadumo Mckenzie - 07/23/2022 11:46 AM EDT Patient last seen on 05/31/22. Asked to follow up with Infusions. documented in this encounterThe Surgical Hospital At Southwoods03-24-2023 Miscellaneous Notes* Telephone Encounter - Kassie Richardson APRN.CNP - 07/13/2022 4:04 PM EDT [facility] in imaging. When did he have them done? Can they fax the results and send the disc. Kassie documented in this encounterThe Surgical Hospital At Southwoods02-13-2023 Miscellaneous Notes* Telephone Encounter - Kassie Richardson APRN.CNP - 06/04/2022 12:48 PM EST Orders for MRA/MRV to be mailed to patient. Kassie Richardson APRN.CNP documented in this [facility]02-09-2023 Instructions* Patient Instructions* Kassie Richardson APRN.CNP - 05/31/2022 9:01 AM EST Greater Occipital Nerve Block Article in [employer] Journal By: Bhavesh Boyd MD Many patients with chronic headache report that their pain typically arises from the neck or, more specifically, the base of the skull. Often that pain arises on one side or the other and extends forward to involve the top of the head, the gnosticism, the forehead, the eye or some combination [...] give it at least one more try. https://americanheadachesociety.org/wp-content/uploads//Voiagxukw-Jtcgh-Z locks_August-2009.pdf documented in this encounterThe Surgical Hospital At Southwoods02-09-2023 History of Present illness Narrative* Kassie Richardson APRN.CNP - 05/31/2022 8:00 AM EST Head[facility] Follow up visit May 31, 2022 Chief [...] unrevealing and negative. I sent patient a Immediately message with this information and we can try [facility] to see if this is [...] other than aphasia. He was seen at [facility] for this previously (2020 note, migraine), and follows w/ Neurologist Dr. Wolff in [place]. 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 Security Project Manager (topogram) images: No additional findings. 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 Short and custodial memory, cognition and general fund of knowledge [...] Care Visit completed when applicable. Kassie Richardson APRN.ORDER PACKER The risks, benefits and anticipated outcomes of [...] which included preparing to see the patient, peli-cl-mzux patient care, completing clinical documentation, obtaining and/or reviewing separately obtained history, performing a medically appropriate examination, counseling and educating the patient/family/caregiver, and ordering medications, tests, or procedures. Kassie Richardson APRN.NEETU Headache Section [facility] May 31, 2022 documented in this encounterThe Surgical Hospital At Southwoods09-16-2022 History of Present illness Narrative* Dominique Atkins [...] discharge. Tad Corea MD Internal medicine, PGY-2 [facility], [facility] @TODAY@ 10:53 AM [...] MD Nephrology Attending Physician [facility] 01/05/2022 * Dariela Fraser MD - 01/05/2022 10:40 AM EDT Images from the original note were not included. [facility] Office: [phone] Mehdi Mcallister DO, Meliton Willard DO, Vicente [...] Keiry Jones MD, Shefali Mcdonnell MD, Dariela Fraser MD, Shashi Kiser DO, Cornelia George MD, Octaviano Bolden MD, Julia Vasquez, ORDER PACKER, Joanne Hameed, ORDER PACKER, Jazmine Huitron, ORDER PACKER, Tono Braun, ORDER PACKER, Annie Quijano, DNP, Brunilda Fuller, ORDER PACKER, Andria Rutherford, ORDER PACKER, Akila Franks, ORDER PACKER, Shivani Rascon, ORDER PACKER, Mayte Martinez, ORDER PACKER, BLANCHE Nelson-C, Esha Kumari, MUSEUM INFORMATICS SPECIALIST, Monica Levy, DNP, Marifer Dunne, ORDER PACKER, Rosie Longoria, ORDER PACKER, Nohelia Morris, ORDER PACKER [facility] IN-PATIENT SERVICE [facility] Progress Note Name: Yoli Antunez Acct: [id number] Room: 0318/0318-01 IP Day: 5 Admit Date: [...] improved to 2.5, bicarb 25 Brief History: 78-jzch-pof-year-old with prior history of CKD 3, hypertension, prior TIA, paroxysmal A. fib, aortic root aneurysm presented with right lower quadrant and flank pain, initially started on 12/28/2021 when he was evaluated at [facility]. Imaging suggested possible epiploic appendicitis versus small [...] 12/31/2021 Yes EMELIA (acute kidney injury) ([facility]) 01/01/2022 Yes CKD (chronic kidney disease) stage 3, GFR 30-59 ml/min ([facility]) 01/01/2022 Yes Non-intractable vomiting with nausea 01/01/2022 Yes Jaundice 01/01/2022 Yes Lactic acid acidosis 01/01/2022 Yes Hyperglycemia 01/01/2022 Yes Paroxysmal A-fib ([facility]) 01/01/2022 Yes History of TIA (transient ischemic attack) 01/01/2022 Yes Apnea 01/01/2022 Yes History of kidney stones 01/01/2022 Yes Metabolic acidosis 01/03/2022 Yes History of peptic ulcer 01/01/2022 Yes Overview Signed 01/01/2022 2:21 AM by Darline Walden MD S/p egd at [facility] 08/2020 Plan: S/p cholecystectomy day3 -Continue [...] to home if ok with nephrology Dariela Fraser MD 01/05/2022 * Spencer Grijalva MD - [...] corrected by editing Spencer [facility] MD [facility] FACP 01/04/2022 1:31 PM [facility] * Dariela Fraser MD - 01/04/2022 10:45 AM EDT Images from the original note were not included. [facility] Office: [phone] Mehdi Mcallister DO, Meliton Willard DO, Vicente [...] Keiry Jones MD, Shefali Mcdonnell MD, Dariela Fraser MD, Shashi Kiser DO, Cornelia George MD, Octaviano Bolden MD, Julia Vasquez CNP, Joanne Hameed CNP, Jazmine Huitron CNP, Tono Braun CNP, Annie Quijano, KENYA, Brunilda Fuller CNP, Andria Rutherford, ORDER PACKER, Akila Franks, ORDER PACKER, Shivani Rascon, ORDER PACKER, Mayte Martinez, ORDER PACKER, Aliya Reyes PA-C, Esha Kumari, MUSEUM INFORMATICS SPECIALIST, Monica Levy, DNP, Marifer DunneNEETU, Rosie Longoria CNP, Nohelia Morris CNP [facility] IN-PATIENT SERVICE [facility] Progress Note Name: Yoli Antunez Acct: [id number] Room: 0318/0318-01 Day: 4 Admit Date: 12/31/2021 11:15 PM PCP: Radha Price MD Code Status: Full Code Subjective: C/C: nausea,vomiting, fevers Interval History Status: improved. Patient indicates doing well no nausea vomiting. Continues to have left upper quadrant pain intermittently. No flatus or bowel movement yet . hemodynamically stable. Creatinine improved to 3.07 WBC 12.2 Brief History: 32-urhq-vhx-year-old with prior history of CKD 3, hypertension, prior TIA, paroxysmal A. fib, aortic root aneurysm presented with right lower quadrant and flank pain, initially started on 12/28/2021 when he was evaluated at [facility]. Imaging suggested possible epiploic appendicitis versus small [...] by Darline Walden MD S/p egd at [facility] 08/2020 Plan: S/p cholecystectomy day2 -Continue [...] recovery and return of bowel function. Dariela Fraser MD 01/04/2022 * Bhavesh Gunter DO - [...] Gunter DO 01/05/2022 7:56 AM * Dariela Fraser MD - 01/03/2022 4:36 PM EDT Physician Progress Note PATIENT: YOLI ANTUNEZ CSN #: [id number] : 1955 ADMIT DATE: 12/31/2021 11:15 PM DISCH DATE: RESPONDING PROVIDER #: Dariela Fraser MD QUERY TEXT: Patient admitted with Gall [...] RN CDS. Please call/text/PS with any questions; [phone]. Options provided: -- Sepsis, present on admission [...] 01/03/2022 4:30 PM Electronically signed by: Dariela Fraser MD 01/03/2022 4:35 PM * Janet Ford, SALES PROJECT COORDINATOR - ORDER PACKER - 01/03/2022 2:02 PM EDT [facility] Yoli Antunez is a [...] results for input(s): LABIRON, TIBC, IRON, FERRITIN, [id number], FOLATE, OCCULTBLD in the last 72 hours. [...] of your patient. Janet Ford APRN - [place], [place] Please note that this note was generated using a voice recognition dictation software. Although every effort was made to ensure the accuracy of this automated content management consultant, some errors in content management consultant may have occurred. Associated attestation - [...] and primary team. Juan David Marr MD [facility] [place], [place] * Dariela Fraser MD - 01/03/2022 9:30 AM EDT Images from the original note were not included. [facility] Office: [phone] Mehdi Mcallister DO, Meliton Willard DO, Vicente [...] Keiry Jones MD, Shefali Mcdonnell MD, Dariela Fraser MD, Shashi Kiser DO, Cornelia George MD, Octaviano Bolden MD, Julia Vasquez CNP, Joanne Hameed CNP, Jazmine Huitron ORDER PACKER, Tono Braun, ORDER PACKER, Annie Quijano, DNP, Brunilda Fuller, ORDER PACKER, Andria Rutherford, ORDER PACKER, Akila Franks, ORDER PACKER, Shivani Rascon, ORDER PACKER, Mayte Martinez ORDER PACKER, Aliya Reyes PA-C, Esha Kumari, MUSEUM INFORMATICS SPECIALIST, Monica Levy, DNP, Marifer Dunne, ORDER PACKER, Rosie Longoria, ORDER PACKER, Nohelia Morris, ORDER PACKER [facility] IN-PATIENT SERVICE [facility] Progress Note Name: Yoli Antunez Acct: [id number] Room: [facility]/0318-01 Day: 3 Admit Date: 12/31/2021 11:15 PM [...] improved, lipase improved to 250 Brief History: 23-pvhk-nqs-year-old with prior history of CKD 3, hypertension, prior TIA, paroxysmal A. fib, aortic root aneurysm presented with right lower quadrant and flank pain, initially started on 12/28/2021 when he was evaluated at [facility]. Imaging suggested possible epiploic appendicitis versus small [...] results found for: POCPH, PHART, PH, POCPCO2, BCL7KCP, PCO2, POCPO2, PO2ART, PO2, POCHCO3, RXJ7KBX, HCO3, NBEA, PBEA, BEART, BE, THGBART, THB, EWX6HUR, YIHB8VYN, E2BBQONP, O2SAT, FIO2 Lab Results Component Value Date/Time [...] by Darline Walden MD S/p egd at [facility] 08/2020 Plan: S/p cholecystectomy day1 -Was [...] dose of Synthroid, diltiazem and pramipexole. Dariela Fraser MD 01/03/2022 * Kee Stevens MD - [...] Service 01/02/2022 at 5:24 PM * Dariela Fraser MD - 01/02/2022 2:51 PM EDT Images from the original note were not included. [facility] Office: [phone] Mehdi Mcallister DO, Meliton Willard DO, Vicente [...] Keiry Jones MD, Shefali Mcdonnell MD, Dariela Fraser MD, Shashi Kiser DO, Cornelia George MD, Octaviano Bolden MD, Julia Vasquez CNP, Joanne Hameed CNP, Jazmine Huitron, ORDER PACKER, Tono Braun, ORDER PACKER, Annie Quijano, KENYA, Brunilda Fuller, ORDER PACKER, Andria Rutherford, ORDER PACKER, Akila Franks CNP, Shivani Rascon CNP, Mayte Martinez, ORDER PACKER, Aliya Reyes PA-C, Esha Kumari, MUSEUM INFORMATICS SPECIALIST, Monica Levy, DNP, Marifer Dunne, ORDER PACKER, Rosie Longoria, ORDER PACKER, Nohelia Morris, ORDER PACKER [facility] IN-PATIENT SERVICE [facility] Progress Note Name: Yoli Antunez Acct: [id number] Room: 0318/0318-01 IP Day: 2 Admit Date: [...] showed no hydronephrosis. Hemodynamically stable Brief History: 22-bany-zap-year-old with prior history of CKD 3, hypertension, prior TIA, paroxysmal A. fib, aortic root aneurysm presented with right lower quadrant and flank pain, initially started on 12/28/2021 when he was evaluated at [facility]. Imaging suggested possible epiploic appendicitis versus small [...] 0326 01/01/22 0546 01/01/2272601/01/22 1017 01/01/22 1207 01/02/22521 NA 139 140 [...] results found for: POCPH, PHART, PH, POCPCO2, MVQ1MLX, PCO2, POCPO2, PO2ART, PO2, POCHCO3, YFH0SCN, HCO3, NBEA, PBEA, BEART, BE, THGBART, THB, PVP1NFC, SMXR8JHN, F9LFSLWV, O2SAT, FIO2 Lab Results Component Value Date/Time [...] 12/31/2021 Yes EMELIA (acute kidney injury) ([facility]) 01/01/2022 Yes CKD (chronic kidney disease) stage 3, GFR 30-59 ml/min ([facility]) 01/01/2022 Yes Non-intractable vomiting with nausea 01/01/2022 Yes Jaundice 01/01/2022 Yes Lactic acid acidosis 01/01/2022 Yes Hyperglycemia 01/01/2022 Yes Paroxysmal A-fib ([facility]) 01/01/2022 Yes History of TIA (transient ischemic attack) 01/01/2022 Yes Apnea 01/01/2022 Yes History of kidney stones 01/01/2022 Yes History of peptic ulcer 01/01/2022 Yes Overview Signed 01/01/2022 2:21 AM by Darline Walden MD S/p egd at [facility] 08/2020 Plan: S/p cholecystectomy day0 - Increase frequency of PRN Dilaudid. Continue to monitor. Rpt LFTs and lipase in AM. - consulted nephrology for worsening EMELIA. No retention noted on u/s. Continue IVF and monitor urineoutput. - AC on hold for surgery. Resume when ok with gensx. - Diet mgmt postop per gensurg. Dariela Fraser MD 01/02/2022 * Rachel Islas MD - 01/02/2022 9:29 AM EDT [facility] Yoli Antunez is a [...] results for input(s): LABIRON, TIBC, IRON, FERRITIN, YUOWPSQI04, FOLATE, OCCULTBLD in the last 72 hours. [...] Rachel Islas MD Internal medicine resident, PGY1 [place], [place] Please note that this note was generated using a voice recognition dictation software. Although every effort was made to ensure the accuracy of this automated content management consultant, some errors in content management consultant may have occurred. Associated attestation - [...] Leonel Matos MD * Sara Villalobos [facility] - 01/01/2022 10:23 AM EDT Pharmacy Note [...] original note were not included. Occupational Therapy [facility] Occupational Therapy Not Seen Note DATE: 01/01/2022 NAME: Yoli Antunez : 1955 Patient not seen this date for Occupational Therapy due to: Patient independent with ADLs and functional tasks with no acute OT needs. Will defer OT evaluationat this time. Please reorder OT if future needs arise. Next Scheduled Treatment: N/A * Aydee Smart RN - 01/01/2022 8:52 AM EDT Talked to [facility] cardiac and they said his loop recorder was put in November 09 and it is a Mygeni device model m301 LUX-DX. MRI notified. [facility] Work Phone: 1(354) 132-180509-16-2022 Hospital course Narrative* Dariela Fraser MD - 01/05/2022 2:37 PM EDT Images from the original note were not included. [facility] Office: [phone] Mehdi Mcallister DO, Meliton Willard DO, Vicente Herrera DO, Johnson Roque DO, Mickie Machado MD, Joie Carbajal MD, Nunu Klein MD, Kate Chester MD, Mariano Diego MD, Cal Sanchez MD, Darren Waldrop DO, Erika Aldridge MD, Carlitos Abel DO, Lorezno Wagner MD, Brian Swenson MD, Osmel Mcallister DO, Darline Walden MD, John Saul MD, Zuleyka Negro MD, Keiry Jones MD, Shefali Mcdonnell MD, Dariela Fraser MD, Shashi Kiser DO, Cornelia George MD, Octaviano Bolden MD, Julia Vasquez CNP, Joanne Hameed CNP, Jazmine Huitron CNP, Tono Braun CNP, Annie Quijano, KENYA, Brunilda Fuller ORDER PACKER, Andria Rutherford, ORDER PACKER, Akila Franks, ORDER PACKER, Shivani Rascon ORDER PACKER, Mayte Martinez ORDER PACKER, BLANCHE Nelson-Leatha, Esha Kumari, YAMILET, Monica Levy, KENYA, Marifer Dunne ORDER PACKER, Rosie Longoria, ORDER PACKER, Nohelia Morris, ORDER PACKER [facility] IN-PATIENT SERVICE [facility] Discharge Summary Patient ID: Yoli Antunez : 1955 ACCOUNT: [id number] Patient's PCP: Radha Price MD Admit Date: 12/31/2021 Discharge Date: 01/05/2022 Length of Stay: 5 Code Status: Full Code Admitting Physician: Dariela Fraser MD Discharge Physician: Dariela Fraser MD Active Discharge Diagnoses: Hospital Problem Lists: [...] Discharged Condition: good Hospital Stay: Hospital Course: 14-uwof-svv-year-old with prior history of CKD 3, hypertension, prior TIA, paroxysmal A. fib, aortic root aneurysm presented with right lower quadrant and flank pain, initially started on 12/28/2021 when he was evaluated at [facility]. Imaging suggested possible epiploic appendicitis versus small [...] Discharge plan: Disposition: Home Physician Follow Up: [facility] [address] [facility] [id number] Schedule an appointment as soon as possible for a visit on 01/16/2022 For wound re-check post op from your Lap Ivy Campos MD [address] [facility] [address] [facility] [address] Follow up in 1 month(s) Diet: regular [...] Your Medications These medications were sent to [place], [place] - [address] [facility] - P [phone] - F [phone] [address] [facility] [address] ciprofloxacin 500 MG tablet dilTIAZem 120 MG [...] and follow up. Electronically signed by Dariela Fraser MD 01/05/[address] Radha Price MD for the opportunity to be involved in this patient'scare. documented in this encounterBON [facility]ITAL[facility] Phone: [phone]) 971-780909-14-2022 Hospital Discharge instructions* Discharge Instructions* Sudheer Foote [...] be called to the nurse line at [phone] and please leave a message. * Attachments The following attachments cannot be sent through Care Everywhere. * Pancreatitis: Acute: General Info (Emirati) documented in this encounterBON [facility] [email or web address] Work Phone: 1(885) 877-899207-28-2022 NotePROCEDURE: XR FOOT LT MIN 3 VIEWS [...] Electronically authenticated by: DONNELL DU Date: 2021-11-16 08:26[facility]06-13-2022 Evaluation note* Encounter Date Diagnosis Assessment [...] to call the office if symptoms return [facility] Other 05-11-2022 Evaluation note* Encounter Date Diagnosis [...] - G89.29) Continue with current treatment plan [facility] Other 04-14-2022 Evaluation note* Encounter Date Diagnosis [...] - G89.29) Continue with current treatment plan [facility] Other 01-10-2022 History of Present illness Narrative* [...] PERIPHERAL IV DATA: Not applicable SIGNED BY: SELINA Sanchez May 01, 2021 8:21 AM [facility] History of Present illness Narrative* Dysphagia with [...] for complaint except as noted in HPI. [facility]ur[facility] [address] Work Phone: 1(218) 487-773706-01-2020 History of Present illness Narrative* Dysphagia with [...] for complaint except as noted in HPI. [facility]al[facility]pbcus-[facility] Work Phone: 1(881) 907-303806-01-2020 History of Present illness Narrative* 67 year [...] for complaint except as noted in HPI. VY-[facility]iyagszprauwrv-Sgbvzhu Work Phone: 1(446) 777-608606-01-2020 History of Present illness Narrative* Dysphagia with [...] for complaint except as noted in HPI. -[facility] [address] Work Phone: 1(451) 338-872501-30-2019 History and physical note Author Charlene Soria [facility] April 16, 2023 10:45am Note Date/Time April 16, 2023 10:45am [facility] [address] [place] [address] Gastroenterology H&P Signed Patient: Yoli Antunez Jr MR#: [id number] : 1955 Acct:[id number] Age/Sex: 67 / M Adm Date: 3 Loc: Room: Type: [facility] Attending Dr: Charlene Soria MD Copies [...] by Charlene Soria MD> 04/16/23 1045 [facility] Work Phone: Consult note* Clinical Note Date No Information [facility] Work Phone: Discharge summary* Clinical Note Date No Information [facility] Work Phone: Evaluation + Plan note Future Appointments Appointment Date:10/07/2024 01:30:00 PM Scheduled Provider: Location:[facility] Appointment Type:Surgery FT [facility] Evaluation noteNo [employer] Other Evaluation note* Diagnosis Gall stone pancreatitis- [...] Metabolic acidosis Acidosis documented in this encounter [facility] Work Phone: evaluation note* Diagnosis Chronic migraine without aura, intractable, without status migrainosus- Primary Aphasia Other specified transient cerebral ischemias documented in this encounter [facility]* Diagnosis Chronic migraine without aura, with intractable migraine, so stated, with status migrainosus- Primary [facility] Diagnosis Chronic migraine without aura, with intractable migraine, so stated, with status migrainosus- Primary documented in this encounter [facility] note* Diagnosis Autonomic dysfunction- Primary Unspecified disorder of autonomic nervous system Dizzy spells Dizziness and giddiness documented in this encounter [facility] note* Diagnosis Diarrhea, unspecified type- Primary Left lower quadrant abdominal pain documented in this encounter [facility] Work Phone: Evaluation note* Diagnosis Disturbance of skin sensation- Primary documented in this encounter [facility] note* Diagnosis Left lower quadrant abdominal pain documented in this encounter [facility] Work Phone: Evaluation note* Diagnosis Dysphagia, oropharyngeal [...] Obstructive sleep apnea (adult) (pediatric) 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, unspecified 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 (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 of antithrombotics/antiplatelets 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 (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 of 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 Personal history of transient ischemic attack (TIA), and cerebral infarction without residual deficits Personal history of nicotine dependence Allergy status to penicillin documented in this encounter [facility] Work Phone: Evaluation note* Diagnosis Obstructive sleep [...] other antibiotic agents documented in this encounter [facility] Work Phone: Evaluation noteNo assessment information available [facility] Work Phone: Evaluation note* Diagnosis Orthostatic hypotension- Primary [place]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) documented in this encounter [facility]* Diagnosis Shortness of breath documented in this encounter [facility]* Type Assessment Date No Information [facility] Work Phone: Evaluation note* Diagnosis Anxiety- Primary Anxiety state, unspecified Dermatitis Contact dermatitis and other eczema, due to unspecified cause Paroxysmal atrial fibrillation (CMS/HCC) Atrial fibrillation documented in this encounter [facility] Healthcare[facility]* Diagnosis Anxiety- Primary Anxiety state, unspecified Dermatitis Contact dermatitis and other eczema, due to unspecified cause Paroxysmal atrial fibrillation (CMS/HCC) Atrial fibrillation Other thrombophilia (CMS/HCC) Postprocedural hypoparathyroidism (CMS/HCC) Acquired hypothyroidism (CMS/HCC) Unspecified hypothyroidism documented in this encounter [facility] HealthcareEvaluation note* Diagnosis Anxiety- Primary Anxiety state, unspecified Dermatitis Contact dermatitis and other eczema, due to unspecified cause Paroxysmal atrial fibrillation (CMS/HCC) Atrial fibrillation Other thrombophilia (CMS/HCC) Postprocedural hypoparathyroidism (CMS/HCC) Arteriosclerosis of coronary artery (CMS/HCC)- Primary Atypical angina (CMS/HCC) Other and unspecified angina pectoris documented in this encounter [facility] HealthcareEvaluation note* Diagnosis Anxiety- Primary Anxiety state, unspecified Dermatitis Contact dermatitis and other eczema, due to unspecified cause Paroxysmal atrial fibrillation (CMS/HCC) Atrial fibrillation Other thrombophilia (CMS/HCC) Postprocedural hypoparathyroidism (CMS/HCC) Dermatitis- Primary Contact dermatitis and other eczema, due to unspecified cause documented in this encounter [facility] HealthcareEvaluation note* Diagnosis Diarrhea, unspecified type- Primary Autonomic dysfunction Angina at rest (CMS/HCC) Other and unspecified angina pectoris documented in this encounter [facility] HealthcareEvaluation note* Diagnosis Dermatitis- Primary Contact dermatitis [...] due to unspecified cause Paroxysmal atrial fibrillation ([facility]/HCC) Atrial fibrillation Other thrombophilia ([facility]/HCC) Postprocedural hypoparathyroidism ([facility]/HCC) Restless leg- Primary Restless legs syndrome (RLS) documented [facility] encounter [facility]* Diagnosis Anxiety- Primary Anxiety state, unspecified Dermatitis Contact dermatitis and other eczema, due to unspecified cause Paroxysmal atrial fibrillation ([facility]/HCC) Atrial fibrillation Other thrombophilia ([facility]/HCC) Postprocedural hypoparathyroidism ([facility]/HCC) Acquired hypothyroidism ([facility]) Unspecified hypothyroidism documented in [facility] encounter [facility]* Diagnosis Anxiety- Primary Anxiety state, unspecified Dermatitis Contact dermatitis and other eczema, due to unspecified cause Paroxysmal atrial fibrillation ([facility]/HCC) Atrial fibrillation Other thrombophilia ([facility]/HCC) Postprocedural hypoparathyroidism ([facility]/HCC) Ptosis of both eyelids- Primary Unspecified ptosis of eyelid documented [facility] encounter [facility]* Diagnosis Anxiety- Primary Anxiety state, unspecified Dermatitis Contact dermatitis and other eczema, due to unspecified cause Paroxysmal atrial fibrillation ([facility]/HCC) Atrial fibrillation Other thrombophilia (CMS/HCC) Postprocedural hypoparathyroidism ([facility]/HCC) Restless legs syndrome- Primary Restless legs syndrome (RLS) POTS (postural orthostatic tachycardia syndrome) Unspecified tachycardia Aneurysm of ascending aorta without rupture ([facility]) Coronary artery disease involving [place] heart, unspecified vessel or lesion type, unspecified whether angina present ([facility]) Paroxysmal atrial fibrillation ([facility]) Atrial fibrillation Essential hypertension ([facility]) Unspecified essential hypertension Presence of Watchman left atrial appendage closure device Transient ischemic attack Unspecified transient cerebral ischemia Gastroesophageal reflux disease without esophagitis Esophageal reflux Benign prostatic hyperplasia with urinary obstruction Stage 3a chronic kidney disease (HCC) (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/HCC) Weakness- Primary Other malaise and fatigue Acquired [...] (PTH) Hypocalcemia Vitamin D deficiency Postoperative hypothyroidism ([facility]/HCC) Postsurgical hypothyroidism documented in [facility] encounter [facility]* Diagnosis Anxiety- Primary Anxiety state, unspecified Dermatitis Contact dermatitis and other eczema, due to unspecified cause Paroxysmal atrial fibrillation (CMS/HCC) Atrial fibrillation Other thrombophilia Postprocedural hypoparathyroidism (CMS/HCC) Low serum parathyroid hormone (PTH)- Primary Hypocalcemia Vitamin D deficiency Postoperative hypothyroidism (CMS/HCC) Postsurgical hypothyroidism Postsurgical hypoparathyroidism (CMS/HCC) Stage 3a chronic kidney disease (HCC) ([facility]) documented in this encounter [facility]* [...] Chronic maxillary sinusitis documented in this encounter [facility] Healthcare[facility]* Diagnosis Orthostatic lightheadedness- Primary Dizziness and giddiness Ptosis of right eyelid Unspecified ptosis of eyelid Hoarseness of voice Dysphonia Disturbance of skin sensation Abnormality of gait and mobility Abnormality of gait Falls frequently Personal history of fall Orthostatic hypotension Voice disturbance Voice and resonance disorder, unspecified [facility] this encounter [facility]* Diagnosis Ptosis of right eyelid- Primary Unspecified ptosis of eyelid Hoarseness of voice Dysphonia documented in this encounter [facility]* Diagnosis Anxiety- Primary Anxiety state, unspecified Dermatitis Contact dermatitis and other eczema, due to unspecified cause Paroxysmal atrial fibrillation (HCC) Atrial fibrillation Other thrombophilia ([facility]-HCC) Postprocedural hypoparathyroidism (HCC) Muscle cramps- Primary Acquired hypothyroidism Unspecified hypothyroidism Hypocalcemia Stage 3b chronic kidney disease (CMS-HCC) documented in this encounter [facility] HealthcareEvaluation note* Diagnosis Anxiety- Primary Anxiety state, unspecified Dermatitis Contact dermatitis and other eczema, due to unspecified cause Paroxysmal atrial fibrillation (HCC) Atrial fibrillation Other thrombophilia ([facility]-HCC) Postprocedural hypoparathyroidism (HCC) Acquired hypothyroidism Unspecified hypothyroidism documented in this encounter [facility] HealthcareHistory and physical note* Clinical Note Date No Information [facility] Work Phone: History general Narrative - Reported* [...] Hospitalization History see above Hospitalization History cardiac [facility] Other History of Present illness Narrative* Patient [...] and contact clinician with any concerns. [facility] [address] [place] Work Phone: History of Present illness Narrative* Mr. ANTUNEZ , 1955, referred for an initial consultation with me but established with this practice, with a long history of waking up feeling unrefreshed, excessive daytime fatigue. * [place] Sleepiness Scale Score is 16 /24. Fatigue [...] / 20 * Nasal Obstruction VAS- 0/10 IH-Qxrfqhrtbljtwa-Bvzdr [id number] Work Phone: Hospital course Narrative No data available for this section [facility] Hospital Discharge instructions Additional Instructions DISCHARGE [...] - Do NOT operate machinery such as [employer] lawn mowers, snow blowers, sewing machines, etc. [...] -Follow up pathology -Follow up in the [facility] Work Phone: Hospital Discharge instructions No data available for this section [facility] Instructions* Date Instruction Additional Infor mation No Information [facility] Work Phone: Progress note* Clinical Note Date No Information [facility] Work Phone: Progress note No data available for this section [facility] Reason for referral (narrative)* Reason For Referral No Information [facility] Work Phone: Reason for referral (narrative)* Consultation (Routine) - Authorized Specialty Diagnoses / Procedures Referred By Yeny thurston Referred To Contact Gastroenterology Diagnoses Diarrhea, unspecified type Procedures TX OFFICE/OUTPATIENT [facility] 60 MINUTES Radha Burris MD [address] [place] [address] Michelle Gilmore MD [address] [place] [address] Referral ID Status Reason Start Date Expiration Date Visits Requested Visits Authorized [id number] Authorized Specialty Services Required 12/24/2023 06/21/2024 1 1 [facility] for [facility] Narrative* Consultation (Routine) - Closed Specialty Diagnoses / Procedures Referred By Contdirk t Referred To Contact Neurology Diagnoses Acquired ptosis of right eyelid Procedures TX OFFICE/OUTPATIENT [facility] 60 MINUTES Eleonora Leo NP [address] [place] [address] Phone: tel: fax: Rnajana MackDO [address] [place] [address] Phone: tel: fax: Referral ID Status Reason Start Date Expiration Date V isits Requested Visits Authorized [id number] Closed Consult and Treat 06/09/2024 12/06/2024 1 1 [facility] Healthcare Summary Purpose Family History No Family [...] FoundDocuments on File Type Date 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 ACP-Advance Directive ACP-Power of Phone Technician Latest Code Status on File Code Status [...] CHEST Cameron Harmon MD [address] [place] [address] [place] [address] Referral ID Status Reason Start Date Expiration Date V isits Requested Visits Authorized [id number] Closed Auto-Generate d Referral 04/05/2021 05/05/2022 1 1 Specialty Diagnoses / Procedures Referred By Contac t Referred To Contact Radiology Diagnoses Left lower quadrant abdominal pain Procedures CT abdomen pelvis w IV contrast Yossi Chen MD [address] [facility] [address] [place] [address] Referral ID Status Reason Start Date Expiration Date Visits Requested Visits Authorized [id number] Authorized Perform Procedure 3 07/30/2023 1 1 Specialty Diagnoses / Procedures Referred By Contac t Referred To Contact Neurology Diagnoses Autonomic dysfunction Dizzy spells Procedures CONSULT TO NEUROLOGY OFFICE/OUTPATIENT [facility] MDM 60-74 MINUTES Kassie Richardson APRN.ORDER PACKER [address] [place] [address] Referral ID Status Reason Start Date Expiration Date Visits Requested Visits Authorized [id number] Authorized PCP Requested Referral 12/31/2022 12/31/2023 1 1 Specialty Diagnoses / Procedures Referred By Contac t Referred To Contact MR IMAGING Diagnoses Chronic migraine without aura, intractable, without status migrainosus Aphasia Other specified transient cerebral ischemias Procedures MRV BRAIN WO IVCON MRA, HEAD W/O CONTRAST Kassie Richardson APRN.ORDER PACKER [address] [place] [address] Mr Imaging Referral ID Status Reason Start Date Expiration Date Visits Requested Visits Authorized [id number] Pending Review Auto-Generat ed Referral 05/31/2022 06/30/2023 1 1 Specialty Diagnoses / Procedures Referred By Contac t Referred To Contact MR IMAGING Diagnoses Chronic migraine without aura, intractable, without status migrainosus Aphasia Other specified transient cerebral ischemias Procedures MRA BRAIN WO IVCON MRA, HEAD W/O CONTRAST Kassie Richardson, BRENNA.ORDER PACKER [address] [place] [address] Mr Imaging Referral ID Status Reason Start Date Expiration Date Visits Requested Visits Authorized [id number] Pending Review Auto-Generat ed Referral 05/31/2022 06/30/2023 [...] section and content) DATE CREATED AUTHOR 05/02/2018 [facility] DATE CREATED AUTHOR AUTHOR'S ORGANIZ ATION 03/12/2020 [facility] DATE CREATED AUTHOR AUTHOR'S ORGANIZ ATION 05/25/2021 [facility] DATE CREATED AUTHOR AUTHOR'S ORGANIZ ATION 12/23/2021 [facility] DATE CREATED AUTHOR AUTHOR'S ORGANIZ ATION 01/17/2022 [facility] DATE CREATED AUTHOR AUTHOR'S ORGANIZ ATION 04/18/2022 [facility] Specialist DATE CREATED AUTHOR AUTHOR'S ORGANIZ ATION 06/07/2022 [facility] DATE CREATED AUTHOR AUTHOR'S ORGANIZ ATION 08/28/2022 [facility] DATE CREATED AUTHOR AUTHOR'S ORGANIZ ATION 10/26/2022 [facility] DATE CREATED AUTHOR AUTHOR'S ORGANIZ ATION 12/14/2022 [facility] ical Center DATE CREATED AUTHOR AUTHOR'S ORGANIZ ATION 12/14/2022 [facility] DATE CREATED AUTHOR AUTHOR'S ORGANIZ ATION 12/18/2022 [facility] DATE CREATED AUTHOR AUTHOR'S ORGANIZ ATION 02/02/2023 [facility] DATE CREATED AUTHOR AUTHOR'S ORGANIZ ATION 02/06/2023 [facility] DATE CREATED AUTHOR AUTHOR'S ORGANIZ ATION 06/11/2023 [facility] DATE CREATED AUTHOR AUTHOR'S ORGANIZ ATION 12/28/2023 [facility] DATE CREATED AUTHOR AUTHOR'S ORGANIZ ATION 03/05/2024 [facility] DATE CREATED AUTHOR AUTHOR'S ORGANIZ ATION 08/06/2024 [facility] DATE CREATED AUTHOR AUTHOR'S ORGANIZ ATION 09/27/2024 [facility] DATE CREATED AUTHOR AUTHOR'S ORGANIZ ATION 10/10/2024 [facility] DATE CREATED AUTHOR AUTHOR'S ORGANIZ ATION 10/23/2024 [facility] DATE CREATED AUTHOR AUTHOR'S ORGANIZ ATION 12/27/2024 [facility] EPIC DATE CREATED AUTHOR AUTHOR'S ORGANIZ ATION 01/02/2025 [facility] DATE CREATED AUTHOR AUTHOR'S ORGANIZ ATION 01/09/2025 [facility] Reason for Visit (unrecogniz ed section and content) Reason Comments Infusion Headache Specialty Diagnoses / Procedures Referred By Contac t Referred To Contact Diagnoses Chronic migraine without aura, with intractable migraine, so stated, with status migrainosus Kassie Richardson, SALES PROJECT COORDINATOR.ORDER PACKER [address] [place] [address] Neur Headache Main [address] [place] [address] Referral ID Status Reason Start Date Expiration Date V isits Requested Visits Authorized [id number] Authorized 05/31/2022 08/29/2022 99 99 Status Reason Specialty Diagnoses / Procedures Referred By Contact Referred To Contact Pending Review Infusion Therapy Diagnoses Migraine, unspecified, intractable, without status migrainosus Procedures TX INJ MAGNESIUM SULFATE TX LIDOCAINE INJECTION TX DEXAMETHASONE SODIUM PHOS TX DRUGS UNCLASSIFIED INJECTION Mayelin Wolff MD [address] [place] [address] [facility] [address] [place] [address] Reason Comments Headache Reason Comments Received Outside Medical Records Reason Comments Results [facility] Reason Comments Follow-up Diarrhea Since hiatal hernia surgery. Reason Comments Results [facility] Specialty Diagnoses / Procedures Referred By Contac t Referred To Contact Radiology Diagnoses Left lower quadrant abdominal pain Procedures CT abdomen pelvis w IV contrast Yossi Chen MD [address] [facility] [address] [place] [address] Referral ID Status Reason Start Date Expiration Date Visits Requested Visits Authorized [id number] Authorized Perform Procedure 3 07/30/2023 1 1 [...] CHEST Cameron Harmon MD [address] [place] [address] [place] [address] Referral ID Status Reason Start Date Expiration Date V isits Requested Visits Authorized [id number] Closed Auto-Generate d Referral 04/05/2021 05/05/2022 1 1 Reason Comments Follow-up Rash on both legs th e past couple months. Rash has stayed the same. [facility] on 01/29 patient went in for chest [...] Diagnoses Low serum parathyroid hormone (PTH) Procedures TX OFFICE/OUTPATIENT NEW HIGH MDM 60 MINUTES Eleonora Leo, RAHUL [address] [place] [address] Phone: tel: fax: Latoya Redding MD [address] [place] [address] Phone: tel: fax: Referral ID Status Reason Start Date Expiration Date Visits Requested Visits Authorized [id number] Pending Review Specialty Services Required 06/23/2024 12/20/2024 1 1 Reason Comments Follow-up PTH LAB Reason Comments Weakness, Gen Reason Comments Dental Injury Patient had tooth re moved two weeks ago Saturday at [facility] for tooth removal but the root traveled to sinus. Sx of right ear pain, and thick yellow mucus that started the next day. Has been taking ibuprofen 600mg 3-4 times daily. [facility] sent a couple of referrals to ENT, one called back but can not get him in till another week. Reason Comments URI Reason Comments Sinusitis New Patient : sinusi tis / CT done Specialty Diagnoses / Procedures Referred By Yeny t Referred To Contact Otolaryngology Diagnoses Acute non-recurrent maxillary sinusitis Abnormal CT scan, sinus Procedures TX OFFICE/OUTPATIENT [facility] 60 MINUTES Radha Burirs MD [address] [place] [address] Phone: tel: fax: Lalito Burris, [address] [facility] [place] [address] Phone: tel: fax: Referral ID Status Reason Start Date Expiration Date V isits Requested Visits Authorized [id number] Closed Specialty Services Required 08/21/2024 02/17/2025 1 1 Reason Comments Sinusitis 2 week evon Reason Comments Post-op Reason Comments Post-op 2 week evon Reason Comments Established Patient Follow Up Reason Comments Received Outside Medical Records Reason Comments Hospital Follow-up Reason Comments Med Refill Ordered Prescriptions (unrec ognized section and content) [...] Garcia RN) 0853 (Given - Provider: Patty Evans)2099 (Due) [...] 20 mg, IntraVENous, ONCE, 1 dose, On Sat01/04/22 at 0400, Do not administer if HR less than 60 0357 (Given - Provider: Ritu Sosa RN) levothyroxine (SYNTHROID) tablet 150 mcg 150 mcg, Oral, DAILY, First dose on Sat01/03/22 at 0900, Until Discontinued, Tube feeding (TF) interaction, obtain physician order to manage, recommend holding TF for 30 minutes before and after dose. 1038 (Given - Provider: Roly Delong, CARLOS) 2032 (Given - Provider: Agata Garcia, CARLOS) 2099 (Due - Provider: Soco Hdez, CARLOS) metronidazole (FLAGYL) 500 mg in 0.9% NaCl 100 mL IVPB premix (COMPLETED) 500 mg, IntraVENous, EVERY 8 HOURS, 3 doses, First dose on Sat01/02/22 at 1530, Last dose on Sat01/03/22 at 0730, Antimicrobial Indications: Surgical Prophylaxis 0049 (Stopped - Provider: Ritu Sosa RN)0806 (New Bag - Provider: Roly Delong, CARLOS)09 (Stopped - Provider: Roly Delong, CARLOS) metroNIDAZOLE (FLAGYL) tablet 500 mg 500 mg, Oral, EVERY 8 HOURS SCHEDULED (3 times per day), 15 doses, First dose on Sat01/03/22 at 2100, Last dose on Sat01/08/22 at 1400, Antimicrobial Indications: Other, Other Abx Indication: acute infected cholecystitis 2027 (Given - Provider: Ritu Sosa RN) 042 (Given - Provider: Ritu Sosa, CARLOS)1444 (Given - Provider: Soco Hdez, CARLOS)220 (Given - Provider: Agata Garcia, CARLOS) 0537 [...] Soco Hdez RN - Reason: IV Fluid Infusing)2099 (Due) Continuous Medication Order 01/03/2022 01/04/2022 01/05/2022 [...] IntraVENous, EVERY 6 HOURS PRN, Starting on 12/31/21 at 2333, Until Discontinued, Nausea, Vomiting
Administer [...]
Care Teams (unrecognized sec tion and content) Pie Icer Machine Relationship Specialty Start Date End Date Radha Price MD [address] [place] [address] [phone] PCP - General Family Medicine 10/01/17 Pie Icer Machine Relationship Specialty Start Date End Date Radha Burris MD [address] [place] [address] PCP - General Internal Medicine 01/14/20 Esther Grey, DO [address] [facility] [place] [address] Physician Electrophysiology 01/26/20 Pie Icer Machine Relationship Specialty Start Date End Date Radha Burris [address] [place] [phone] PCP - General Family Medicine 10/09/17 Elian Ceballos MD [address] [place] [address] Primary Staff Physician Cardiology 12/01/20 Herminia Roland MD [address] [facility] [place] [address] Primary Staff Physician Cardiology 02/01/21 Pie Icer Machine Relationship Specialty Start Date End Date Radah Burris [address] [place] [address] PCP - General Family Medicine 10/09/17 Elian Ceballos MD [address] [place] [address] Primary Staff Physician Cardiology 12/01/20 Herminia Roland MD [address] [place] [address] Primary Staff Physician Cardiology 02/01/21 Pie Icer Machine Relationship Specialty Start Date End Date Radha [address] [place] [phone] PCP - General Family Medicine 10/09/17 Elian Ceballos MD [address] [facility] [place] [place] [address] Primary Staff Physician Cardiology 12/01/20 Herminia Roland MD [address] [facility] [place] [address] Primary Staff Physician Cardiology 02/01/21 Pie Icer Machine Relationship Specialty Start Date End Date Radha Burris [address] [place] [phone] PCP - General Family Medicine 10/09/17 Elian Ceballos MD [address] [place] [address] Primary Staff Physician Cardiology 12/01/20 Herminia Roland MD [address] [facility] [place] [address] Primary Staff Physician Cardiology 02/01/21 Pie Icer Machine Relationship Specialty Start Date End Date Radha Burris [address] [place] [phone] PCP - General Family Medicine 10/09/17 Elian Ceballos MD [address] [facility] [place] [address] Primary Staff Physician Cardiology 12/01/20 Herminia Roland MD [address] [place] [address] Primary Staff Physician Cardiology 02/01/21 Pie Icer Machine Relationship Specialty Start Date End Date Radha Burris [address] [facility] [place] [phone] PCP - General Family Medicine 10/09/17 Elian Ceballos MD [address] [place] [address] Primary Staff Physician Cardiology 12/01/20 Herminia Roland MD [address] [place] [address] Primary Staff Physician Cardiology 02/01/21 Pie Icer Machine Relationship Specialty Start Date End Date Radha Burris [address] [place] [phone] PCP - General Family Medicine 10/09/17 Elian Ceballos MD [address] [place] [address] Primary Staff Physician Cardiology 12/01/20 Herminia Roland MD [address] [place] [address] Primary Staff Physician Cardiology 02/01/21 Pie Icer Machine Relationship Specialty Start Date End Date Radha Burris [address] [place] [phone] PCP - General Family Medicine 10/09/17 Elian Ceballos MD [address] [facility] [place] [address] Primary Staff Physician Cardiology 12/01/20 Herminia Roland MD [address] [facility] [place] [address] Primary Staff Physician Cardiology 02/01/21 Pie Icer Machine Relationship Specialty Start Date End Date Radha Burris [address] [place] [phone] PCP - General Family Medicine 10/09/17 Elian Ceballos MD [address] [place] [address] Primary Staff Physician Cardiology 12/01/20 Herminia Roland MD [address] [place] [address] Primary Staff Physician Cardiology 02/01/21 Pie Icer Machine Relationship Specialty Start Date End Date Radha Burris [address] [place] [phone] PCP - General Family Medicine 10/09/17 Elian Ceballos MD [address] [place] [address] Primary Staff Physician Cardiology 12/01/20 Herminia Roland MD [address] [facility] [place] [address] Primary Staff Physician Cardiology 02/01/21 Pie Icer Machine Relationship Specialty Start Date End Date Radha Burris [address] [place] [phone] PCP - General Family Medicine 10/09/17 Elian Ceballos MD [address] [place] [address] Primary Staff Physician Cardiology 12/01/20 Herminia Roland MD [address] [facility] [place], [place] [phone] Primary Staff Physician Cardiology 02/01/21 Pie Icer Machine Relationship Specialty Start Date End Date Radha Burris MD [address] [phone] PCP - General 03/22/20 Pie Icer Machine Relationship Specialty Start Date End Date Radha Burris [address] [place] [phone] PCP - General Family Medicine 10/09/17 Elian Ceballos MD [address] [place], [place] [phone] Primary Staff Physician Cardiology 12/01/20 Herminia Roland MD [address] [facility] [place] [address] Primary Staff Physician Cardiology 02/01/21 Pie Icer Machine Relationship Specialty Start Date End Date Radha Burris [address] [place] [address] PCP - General Family Medicine 10/09/17 Elian Ceballos MD [address] [place] [address] Primary Staff Physician Cardiology 12/01/20 Herminia Roland MD [address] [place] [address] Primary Staff Physician Cardiology 02/01/21 Pie Icer Machine Relationship Specialty Start Date End Date Radha Burris MD [address] [place] [phone] PCP - General 03/22/20 Pie Icer Machine Relationship Specialty Start Date End Date Radha Burris MD [address] [place] [phone] PCP - General 03/22/20 Pie Icer Machine Relationship Specialty Start Date End Date Radha Burris MD [address] [place] [phone] PCP - General 03/22/20 Team Status: Active Member Role Status Dates Radha Burris MD Primary Care Provide r Active Team Status: Inactive Member Role Status Dates Radha Burris MD Primary Care Provide r Active Charlene Soria MD Attending Provider Active Pie Icer Machine Relationship Specialty Start Date End Date Radha Burris MD [address] [place], [place] [phone] PCP - General Internal Medicine 01/14/20 Esther Grey DO [address] [place], [place] [phone] Physician Electrophysiology 01/26/20 Pie Icer Machine Relationship Specialty Start Date End Date Radha Burris [address] [place] [phone] PCP - General Family Medicine 10/09/17 Elian Ceballos MD [address] [place] [address] Primary Staff Physician Cardiology 12/01/20 Herminia Roland MD [address] [place] [address] Primary Staff Physician Cardiology 02/01/21 Pie Icer Machine Relationship Specialty Start Date End Date Radha Burris MD [address] [place] [address] PCP - ACO Reach 09/13/22 Radha Burris MD [address] [place], [place] [phone] PCP - General Family Medicine 09/20/22 Team [...] June 10, 2023 End: June 10, 2023 Pie Icer Machine Relationship Specialty Start Date End Date Radha Burris MD [address] [place] [address] PCP - General Internal Medicine 01/14/20 Esther Grey DO [address] [facility] [place] [address] Physician Electrophysiology 01/26/20 Name Effective Dates (start - stop) Status Members No Information Pie Icer Machine Relationship Specialty Start Date End Date Radha Burris MD [address] [facility] [place] [address] PCP - ACO Reach 09/13/22 Radha Burris MD [address] [facility] [place] [address] PCP - General Family Medicine 09/20/22 Pie Icer Machine Relationship Specialty Start Date End Date Radha Burris MD [address] [facility] [place] [address] PCP - ACO Reach 09/13/22 Radha Burris MD [address] [facility] [place] [address] PCP - General Family Medicine 09/20/22 Pie Icer Machine Relationship Specialty Start Date End Date Radha Burris MD [address] [place] [address] PCP - ACO Reach 09/13/22 Radha Burris MD [address] [place] [address] PCP - General Family Medicine 09/20/22 Pie Icer Machine Relationship Specialty Start Date End Date Radha Burris MD [address] [place] [address] PCP - ACO Reach 09/13/22 Radha Burris MD [address] [place] [address] PCP - General Family Medicine 09/20/22 Pie Icer Machine Relationship Specialty Start Date End Date Radha Burris MD [address] [place] [address] PCP - ACO Reach 09/13/22 Radha Burris MD [address] [place] [address] PCP - General Family Medicine 09/20/22 Pie Icer Machine Relationship Specialty Start Date End Date Radha Burris MD [address] [place] [address] PCP - ACO Reach 09/13/22 Radha Burris MD [address] [place] [address] PCP - General Family Medicine 09/20/22 Pie Icer Machine Relationship Specialty Start Date End Date Radha Burris MD [address] [place] [address] PCP - ACO Reach 09/13/22 Radha Burris MD [address] [place] [address] PCP - General Family Medicine 09/20/22 Pie Icer Machine Relationship Specialty Start Date End Date Radha Burris MD [address] [place] [address] PCP - ACO Reach 09/13/22 Radha Burris MD [address] [place] [address] PCP - General Family Medicine 09/20/22 Pie Icer Machine Relationship Specialty Start Date End Date Radha Burris MD [address] [place] [address] PCP - ACO Reach 09/13/22 Radha Burris MD [address] [place] [address] PCP - General Family Medicine 09/20/22 Pie Icer Machine Relationship Specialty Start Date End Date Radha Burris MD [address] [place] [address] PCP - ACO Reach 09/13/22 Radha Burris MD [address] [place] [address] PCP - General Family Medicine 09/20/22 Pie Icer Machine Relationship Specialty Start Date End Date Radha Burris MD [address] [place] [address] PCP - ACO Reach 09/13/22 Radha Burris MD [address] [place] [address] PCP - General Family Medicine 09/20/22 Pie Icer Machine Relationship Specialty Start Date End Date Radha Burris MD [address] [place] [address] PCP - ACO Reach 09/13/22 Radha Burris MD [address] [place] [address] PCP - General Family Medicine 09/20/22 Pie Icer Machine Relationship Specialty Start Date End Date Radha Burris MD [address] [place] [address] PCP - ACO Reach 09/13/22 Radha Burris MD [address] [place] [address] PCP - General Family Medicine 09/20/22 Pie Icer Machine Relationship Specialty Start Date End Date Radha Burris MD [address] [place] [address] PCP - General Family Medicine 09/20/22 Pie Icer Machine Relationship Specialty Start Date End Date Radha Burris MD [address] [place] [address] PCP - General Family Medicine 09/20/22 Radha Burris MD [address] [place] [address] PCP - ACO Reach 06/05/24 Pie Icer Machine Relationship Specialty Start Date End Date Radha Burris MD [address] [place] [address] PCP - General Family Medicine 09/20/22 Radha Burris MD [address] [place] [address] PCP - ACO Reach 06/05/24 Pie Icer Machine Relationship Specialty Start Date End Date Radha Burris MD [address] [place] [address] PCP - General Family Medicine 09/20/22 Radha Burris MD [address] [place] [address] PCP - ACO Reach 06/05/24 Pie Icer Machine Relationship Specialty Start Date End Date Radha Burris MD [address] [place] [address] PCP - General Family Medicine 09/20/22 Radha Burris MD [address] [place] [address] PCP - ACO Reach 06/05/24 Shashi Pina DO [address] [place] [address], [place] [address] Referring Physician Neurology 06/22/24 Pie Icer Machine Relationship Specialty Start Date End Date Radha Burris MD [address] [place] [address] PCP - General Family Medicine 09/20/22 Radha Burris MD [address] [place] [address] PCP - ACO Reach 06/05/24 Shashi Pina DO [address] [place] [address] Referring Physician Neurology 06/22/24 Pie Icer Machine Relationship Specialty Start Date End Date Radha Burris MD [address] [place] [address] PCP - General Family Medicine 09/20/22 Radha Burris MD [address] [place] [address] PCP - ACO Reach 06/05/24 Shashi Pina DO [address] [place] [address], [place] [address] Referring Physician Neurology 06/22/24 Pie Icer Machine Relationship Specialty Start Date End Date Radha Burris MD [address] [place] [address] PCP - General Family Medicine 09/20/22 Shashi Pina DO [address] [place] [address], [place] [address] Referring Physician Neurology 06/22/24 Pie Icer Machine Relationship Specialty Start Date End Date Radha Burris MD [address] [place] [address] PCP - General Family Medicine 09/20/22 Shashi Pina DO [address] [address] Referring Physician Neurology 06/22/24 Pie Icer Machine Relationship Specialty Start Date End Date Radha Burris MD [address] [facility] [place] [address] PCP - General Family Medicine 09/20/22 Shashi Pina DO [address] [address] Referring Physician Neurology 06/22/24 Pie Icer Machine Relationship Specialty Start Date End Date Radha Burris MD [address] [facility] [place] [address] PCP - General Family Medicine 09/20/22 Shashi Pina DO [address] [address] Referring Physician Neurology 06/22/24 Pie Icer Machine Relationship Specialty Start Date End Date Radha Burris MD [address] [facility] [place] [address] PCP - General Family Medicine 09/20/22 Shashi Pina DO [address] [address] Referring Physician Neurology 06/22/24 Pie Icer Machine Relationship Specialty Start Date End Date Radha Burris MD [address] [place] [address] PCP - General Family Medicine 09/20/22 Shashi Pina DO [address] [address] Referring Physician Neurology 06/22/24 Pie Icer Machine Relationship Specialty Start Date End Date Radha Burris MD [address] [place] [address] PCP - General Family Medicine 09/20/22 Shashi Pina DO [address] [place] [phone] Referring Physician Neurology 06/22/24 Pie Icer Machine Relationship Specialty Start Date End Date Radha Burris MD [address] [place] [facility] [place] [address] PCP - General Family Medicine 09/20/22 Shashi Pina DO [address] [place] [phone] Referring Physician Neurology 06/22/24 Pie Icer Machine Relationship Specialty Start Date End Date Radha Burris MD [address] [place] [address] PCP - General Family Medicine 09/20/22 Shashi Pina DO [address] [address] Referring Physician Neurology 06/22/24 Pie Icer Machine Relationship Specialty Start Date End Date Radha Burris MD [address] [place] [address] PCP - General Family Medicine 09/20/22 Shashi Pina DO [address] [place] [address] Referring Physician Neurology 06/22/24 Pie Icer Machine Relationship Specialty Start Date End Date Radha Burris MD [address] [place] [address] PCP - General Family Medicine 09/20/22 Shashi Pina DO [address] [place] [address] Referring Physician Neurology 06/22/24 Pie Icer Machine Relationship Specialty Start Date End Date Radha Burris MD [address] [place] [address] PCP - General Family Medicine 09/20/22 Shashi Pina DO [address] [address] Referring Physician Neurology 06/22/24 Pie Icer Machine Relationship Specialty Start Date End Date Radha Burris MD [address] [place] [address] PCP - General Family Medicine 09/20/22 Shashi Pina DO [address] [address] Referring Physician Neurology 06/22/24 Pie Icer Machine Relationship Specialty Start Date End Date aRdha Burris MD [address] [place] [address] PCP - General Family Medicine 09/20/22 Shashi Pina DO [address] [address] Referring Physician Neurology 06/22/24 Pie Icer Machine Relationship Specialty Start Date End Date Radha Burris MD [address] [place], [place] [id number] PCP - General Family Medicine 09/20/22 Shashi Pina DO [address] [place] [address] Referring Physician Neurology 06/22/24 Pie Icer Machine Relationship Specialty Start Date End Date Radha Burris [address] [place] [address] PCP - General Family Medicine 10/09/17 Elian Ceballos MD [address] [place], [place] [id number] Primary Staff Physician Cardiology 12/01/20 Herminia Roland MD [address] [place], [place] [id number] Primary Staff Physician Cardiology 02/01/21 Pie Icer Machine Relationship Specialty Start Date End Date Radha Burris MD [address] [place] [address] PCP - General Family Medicine 10/09/17 Elian Ceballos MD [address] [place] [address] Primary Staff Physician Cardiology 12/01/20 Herminia Roland MD [address] [place] [address] Primary Staff Physician Cardiology 02/01/21 Pie Icer Machine Relationship Specialty Start Date End Date Radha Burris MD [address] [place] [id number] PCP - General Family Medicine 10/09/17 Elian Ceballos MD [address] [place] [address] Primary Staff Physician Cardiology 12/01/20 Herminia Roland MD [address] [place] [address] Primary Staff Physician Cardiology 02/01/21 Pie Icer Machine Relationship Specialty Start Date End Date Radha Burris MD [address] [place] [address] PCP - General Family Medicine 09/20/22 Shashi Pina DO [address] [place] [address] Referring Physician Neurology 06/22/24 Pie Icer Machine Relationship Specialty Start Date End Date Radha Burris MD [address] [place] [id number] PCP - General Family Medicine 10/09/17 Elian Ceballos MD [address] [place], [place] [id number] Primary Staff Physician Cardiology 12/01/20 Herminia Roland MD [address] [place], [place] [id number] Primary Staff Physician Cardiology 02/01/21 Pie Icer Machine Relationship Specialty Start Date End Date Radha Burris MD [address] [place] [address] PCP - General Family Medicine 09/20/22 Shashi Pina DO [address] [address] Referring Physician Neurology 06/22/24 Pie Icer Machine Relationship Specialty Start Date End Date Radha Burris MD [address] [place] [address] PCP - General Family Medicine 09/20/22 Shashi Pina DO [address] [address] Referring Physician Neurology 06/22/24 Source Comments (unrecognize d section and content) In the event this informatio n is protected by the Federal Confidentiality of Alcohol and Drug Abuse Patient Records regulations: The Federal rules restrict any use of the information to criminally investigate or prosecute any alcohol or drug abuse patient.[facility]In the event this information is protected by the Federal Confidentiality of Alcohol and Drug Abuse Patient Records regulations: The Federal rules restrict any use of the information to criminally investigate or prosecute any alcohol or drug abuse patient.[facility]woodsIn the event this information is protected by the Federal Confidentiality of Alcohol and Drug Abuse Patient Records regulations: The Federal rules restrict any use of the information to criminally investigate or prosecute any alcohol or drug abuse patient.[facility]woodsIn the event this information is protected by the Federal Confidentiality of Alcohol and Drug Abuse Patient Records regulations: The Federal rules restrict any use of the information to criminally investigate or prosecute any alcohol or drug abuse patient.[facility]woodsIn the event this information is protected by the Federal Confidentiality of Alcohol and Drug Abuse Patient Records regulations: The Federal rules restrict any use of the information to criminally investigate or prosecute any alcohol or drug abuse patient.[facility]woodsIn the event this information is protected by the Federal Confidentiality of Alcohol and Drug Abuse Patient Records regulations: The Federal rules restrict any use of the information to criminally investigate or prosecute any alcohol or drug abuse patient.[facility]woodsIn the event this information is protected by the Federal Confidentiality of Alcohol and Drug Abuse Patient Records regulations: The Federal rules restrict any use of the information to criminally investigate or prosecute any alcohol or drug abuse patient.[facility]woodsIn the event this information is protected by the Federal Confidentiality of Alcohol and Drug Abuse Patient Records regulations: The Federal rules restrict any use of the information to criminally investigate or prosecute any alcohol or drug abuse patient.[facility]woodsIn the event this information is protected by the Federal Confidentiality of Alcohol and Drug Abuse Patient Records regulations: The Federal rules restrict any use of the information to criminally investigate or prosecute any alcohol or drug abuse patient.[facility]woodsIn the event this information is protected by the Federal Confidentiality of Alcohol and Drug Abuse Patient Records regulations: The Federal rules restrict any use of the information to criminally investigate or prosecute any alcohol or drug abuse patient.[facility]woodsIn the event this information is protected by the Federal Confidentiality of Alcohol and Drug Abuse Patient Records regulations: The Federal rules restrict any use of the information to criminally investigate or prosecute any alcohol or drug abuse patient.[facility]woodsIn the event this information is protected by the Federal Confidentiality of Alcohol and Drug Abuse Patient Records regulations: The Federal rules restrict any use of the information to criminally investigate or prosecute any alcohol or drug abuse patient.[facility]woodsIn the event this information is protected by the Federal Confidentiality of Alcohol and Drug Abuse Patient Records regulations: The Federal rules restrict any use of the information to criminally investigate or prosecute any alcohol or drug abuse patient.[facility]woodsIn the event this information is protected by the Federal Confidentiality of Alcohol and Drug Abuse Patient Records regulations: The Federal rules restrict any use of the information to criminally investigate or prosecute any alcohol or drug abuse patient.[facility]woodsIn the event this information is protected by the Federal Confidentiality of Alcohol and Drug Abuse Patient Records regulations: The Federal rules restrict any use of the information to criminally investigate or prosecute any alcohol or drug abuse patient.[facility]woodsIn the event this information is protected by the Federal Confidentiality of Alcohol and Drug Abuse Patient Records regulations: The Federal rules restrict any use of the information to criminally investigate or prosecute any alcohol or drug abuse patient.[facility]woodsIn the event this information is protected by the Federal Confidentiality of Alcohol and Drug Abuse Patient Records regulations: The Federal rules restrict any use of the information to criminally investigate or prosecute any alcohol or drug abuse patient.[facility]woodsIn the event this information is protected by the Federal Confidentiality of Alcohol and Drug Abuse Patient Records regulations: The Federal rules restrict any use of the information to criminally investigate or prosecute any alcohol or drug abuse patient.[facility]woodsIn the event this information is protected by the Federal Confidentiality of Alcohol and Drug Abuse Patient Records regulations: The Federal rules restrict any use of the information to criminally investigate or prosecute any alcohol or drug abuse patient.[facility]woodsIn the event this information is protected by the Federal Confidentiality of Alcohol and Drug Abuse Patient Records regulations: The Federal rules restrict any use of the information to criminally investigate or prosecute any alcohol or drug abuse patient.[facility]woodsIn the event this information is protected by the Federal Confidentiality of Alcohol and Drug Abuse Patient Records regulations: The Federal rules restrict any use of the information to criminally investigate or prosecute any alcohol or drug abuse patient.[facility] FOR RECORDS PERTAINING TO PATIENTS WHO ARE [...] BE BASED ON THE PRIMARY CLINICAL RECORDS. [facility]. provides no warranty or guarantee of the accuracy or completeness of information in this document.
[2025-01-10 11:39] LABS: Anion Gap 11.7; Blood Urea Nitrogen 35.0 mg/dL (7.0-18.0); Calcium 8.1 mg/dL (8.5-10.1); Carbon Dioxide 25.6 mmol/L (21.0-32.0); Chloride 108 mmol/L (98-107); Estimated GFR (African America >60 (>=60 mL/min/1.73m^2); Estimated GFR (Non-African Ame 51 (>=60 mL/min/1.73m^2); Glucose 103 mg/dL (74-106); Potassium 4.3 mmol/L (3.5-5.1); Sodium 141 mmol/L (136-145)
== END 2025-01-10 13:24 | disposition home or self-care (01) ==
PROVIDERS: Emergency Provider Emergency Medicine; PCP Family Medicine
DX: R07.2 Precordial pain (principal); Z95.0 Presence of cardiac pacemaker; Z87.891 Personal history of nicotine dependence
CPT/HCPCS: 36415; 71045; 80048; 84484; 85025; 93005; 99285

== ENCOUNTER 2025-03-15 08:37 | Emergency (ER) | payer MEDICARE, OTHER, SELFPAY ==
--- OUTSIDE RECORDS SUMMARY | 2024-03-03 08:48 | XMS_ITS | Continuity of Care Document ---
Author Organization [facility] Address [address] [place] [address] Phone Care Team Providers Care Educational Technology Coordinator Name Role Phone Donn Ceballos MD Unavailable Unavailable Allergies, Adverse Reactions, Alerts Substance Reaction Status Criticality dofetilide Active No Information vancomycin Active No Information PENICILLIN Active No Information Medications Medication Instructions Dosage Effective Dates (start - stop) Status Comments No Drug Therapy Prescribed Procedures Procedure Date Office/outpatient visit,est, mod 2023 X-ray exam of neck spine, 4+ views Office/outpatient visit,est, mod 2022 X-ray exam of neck spine, 4+ views Office/outpatient visit,est, mod 2021 Office/outpatient visit,new, mod 2021 X-ray exam of neck spine, 4+ views Mar- Advance Directives Directive Yes / No Effective Date File Name No Information Encounters Encounter Description Practice Location Reason(s) For Visit Diagnoses Date Provider Providers Copied on Encounter [facility], [address] [place], [address], [place] tel:[phone] No Information Lin Pop. [address], [place], [place], [id number] , [place]. tel:[phone] Referring Provider: Radha Power, [address] [facility], [place], [address]. tel:[phone] Office/outpa tient visit,est, mod [facility], [facility] [address], [place], [facility], [place] tel:[phone] [place] Other cervical disc degeneration, unspecified cervical regionCervical radiculopathy Sep- 2- 4 [place]. [address], [address], [place], [place], [id number] , [place]. [phone] Referring Provider: Radha Power, [address] [place] [address], [address]. tel:[phone] Office/outpa tient visit,est, [facility] [place], [facility] [address], [place], [facility], tel:[phone] [place] Neck painArm pain, right Nov-3 0- 3 [place]. [address], [address], [place], [place], [id number] , [place]. tel:[phone] Referring Provider: Radha Power, [address] [place] [address], [address]. tel:[phone] Office/outpa tient visit,est, [facility], [facility] [place], [address], [place] tel:[phone] [place] Cervical spinal stenosisCervical radiculopathy Mar- 4-202 2 [place]. [address], [address], [place], [place], [id number] , [place]. tel:[phone] Referring Provider: Donn Hinojosa, [address], [place], [address] . tel:[phone] Office/outpa tient visit,new, mod [facility], [facility] [place], [address], [place] tel:[phone] [place] Cervical radiculopathyAcu te pain of left shoulderArthrode sis status Mar-0 2-202 2 [place]. [address], [address], [place], [place], [id number] , [place]. tel:[phone] Referring Provider: Donn Hinojosa, [address], [place], [address] . tel:[phone] Family History Family Member Type Diagnosis Age At Onset No Information Payers Payer name Insurance type Covered libertarian ID Ramin guidry(s) Medicare [place] [id number] Medical [place] [id number] Social History Type Description Quantity Date Captured Comments Alcohol Use Details Unknown Caffeine Use Details Unknown Tobacco Use Status No Information Smoking Status No Information Sex Male Chief Complaint And Reason For Visit No Information Reason For Referral Reason For Referral No Information Plan Of Treatment Date Type Action Status Referral Ordered: Referrals: Neurology. Diagnostic testing Appointment date/timeframe: 05/03/2023 [id number] Ordered: Pain Medicine (related to Cervical spinal stenosis) [id number] Ordered: Referrals: Pain Medicine [id number] Order: Radiology OrderCervical Spine MRI w/o contrast, Complete ([id number]), Body Site: Spine, Sent on: [id number] Order: Radiology OrderMRI Lumbar Spine wo Contrast ([id number]), Body Site: MRI Head/Spine/Chest, Sent on: [id number] Order: Radiology OrderMRI Cervical Spine wo Contrast ([id number]), Sent on: [id number] Future Order: Radiology OrderMRI Lumbar Spine wo Contrast ([id number]), Sent on: [id number] History Of Present Illness Encounter Date Complaint History Of Prese nt Illness Follow Up Spine-cervical Locatio n: Pain diagram reviewed and is filed in [...] 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 New Problem Spine-cervical Locat ion: Pain diagram reviewed and is filed in [...] due to the discomfort/pain. Follow Up Spine-cervical Locatio n: Pain diagram reviewed and is filed in the patients chart . Hand Dominance: Patient is right handed. Comments: Patient presents to review cervical [facility]. New Problem Spine-cervical Locat ion: Bilateral cervical spine. Left anterior shoulder. Pain [...] well up until a few months ago. Star Functional Status Date Functional Assessmen t No Information Medications Administered Medication Instructions Dosage Effective Dates (start - stop) Status Comments No Drug Therapy Prescribed Instructions Date Instruction Additional Infor mation No Information Assessments Type Assessment Date No Information Patient Care Teams Name Effective Dates (start - stop) Status Members No Information
--- OUTSIDE RECORDS SUMMARY | 2024-03-18 07:45 | XMS_ITS ---
Author Organization The [facility] in [place] Address [address] [place] [address] Care Team Providers Care Radiation Oncology Nurse Name Role Phone Radha Newton MD Primary Care Provider Lrary sauceda Provider, [facility] Unavailable [phone] Encounters Encounter Location Date Provider Diagnosis [facility] [address] [place] [address] 03/18/2024 [facility] Provider Plan Of Treatment No Information Progress Notes * Jayme ARNOLD JR, MDOB:0 1955 (69 yo M)Acc No.[id number]:03/18/2024 UNLOCKED PROGRESS NOTE ASC Surgery Patient: Amita Jayme CABAN JR :?ASC ProviderDOB:1955???Age:68 Y???Sex: MaleDate:4Phone:[phone]:[address] [place] [address] [address], [place], [place]Pcp:Mayela Ward In:11:18 AM EST Subjective: * Chief Complaints: * * Medical History: Objective: * Vitals: Assessment: Plan: * Treatment: * * Electronic signature of [facility] Provider on 03/15/2025 at 09:22 AM ESTSign off status: PendingVisit Status:?ARR (Check-In) * Provider: Amita SANTORO Provider Date: 05/18/2023 Generated for Printing/Faxing/eTransmitting on:?03/15/2025 09:22 AM EST
--- OUTSIDE RECORDS SUMMARY | 2024-03-18 07:50 | XMS_ITS ---
Author Organization The [facility] in [place] Address [address] [place] [address] Care Team Providers Care Director Of Career Services Name Role Phone Radha Newton MD Primary Care Provider Michelle Leon [phone] REASON FOR VISIT MCANDREI PM, LJ, Dr. Newton, Chronic Diarrhea, Medicare/MMO, 02/16, Plenvu Encounters Encounter Location Date Provider Diagnosis [facility] [address] [place] [address] 03/18/2024 Michelle Gilmore Plan Of Treatment No Information Progress Notes * Jayme ARNOLD JR MDOB:0 1955 (69 yo M)Acc No.[id number]:03/18/2024 UNLOCKED PROGRESS NOTE Op Note Patient: Amita Jayme CABAN JR :?Michelle Gilmore, MDDOB:1955???Age:68 Y ???Sex:MaleDate:4Phone:[phone]:[address] [place] [address] [address], [facility]Pcp:Mayela Ward Out:03:23 PM EST Subjective: * Chief Complaints: * 1 . LJ YAO, Dr. Newton, Chronic Diarrhea, Medicare/MMO, 02/16, Susan. * Medical History: Objective: * Vitals: Assessment: Plan: * Treatment: * * Electronic signature of Michelle Gilmore MD, [id number] on 03/15/2025 at 09:26 AM EST Sign off status: PendingVisit Status:?CHK (Check Out) * Provider: Liz Gilmore MD Date: 05/18/2023 Generated for Printing/Faxing/eTransmitting on:?03/15/2025 09:26 AM EST
--- OUTSIDE RECORDS SUMMARY | 2025-03-09 12:00 | XMS_ITS | Encounter Summary ---
Author Organization [facility] Address [address] [place] [address] Care Team Providers Care Technical Report Writer Name Role Phone Radha Newton MD Primary Care Provider [phone] Elian Ceballos MD Unavailable Herminia Roland MD Unavailable [phone] Source Comments In the event this information is protected by the Federal Confidentiality of Alcohol and Drug AbusePatient Records regulations: The Federal rules restrict any use of the information to criminally investigate or prosecute any alcohol or drug abuse patient.[facility] Reason for Visit * ReasonOnset QahuTwcmsuvsQJJ63/18/2025 * Outpatient Procedure (Routine) - ClosedSpecialtyDiagnoses / ProceduresReferred By ContactReferred To ContactNEUROLOGICAL INSTITUTE Diagnoses Ptosis of right eyelid Dysarthria Procedures EMG(NEURO/NI) NERVE CONDUCTION STUDIES 9-10 STUDIES Shahriar Bravo, INTER COM SERVICER.CHARGE HAND [address] [place] [address] Phone: tel: fax: Neurology [address] [place] [address] Phone: tel: Referral IDStatusRepilyStaldo DateExpiration DateVisits RequestedVisits [id number] Auto-Generated Referral Encounter Details DateTypeDepartmentCare Team (Latest Contact Info)Nczrnkjnpbl81/18/2025 12:00 PM ESTProcedure Neurology [address] [place] [address] EMG Social History Tobacco UseTypesPacks/DayYears UsedDateSmoking Tobacco: QqstwbQedwlyvkyr097 09/12/1968 - 09/13/1983Smokeless Tobacco: NeverAlcohol UseStandard Drinks/Week CommentsYes0 (1 standard drink = 0.6 oz pure alcohol)1 beer once a monthPHQ-2 AnswerDate RecordedPHQ-2 ynvqj340rea Deprivation IndexAnswerDate RecordedNational Score (1-100), lower number is lower lpri615609/13/2022State Score (1-10), lower number is lower [id number] from: https://www.neighborhoodatlas.[facility]/. Last address used for bohoccqbdku[address] [facility] Sex and Gender InformationValueDate RecordedSex Assigned at BirthNot on fileLegal HqoTyix18/02/2012 9:35 AM EST Gender IdentityNot on fileSexual OrientationNot on filedocumented as of this encounter Functional Status * Are you deaf or do you have serious difficulty hearing?AnswerDate of SbqamyjhxxApeiuqHc29/26/2021 12:20 PM Kathie Schwab APRN.CHARGE HAND * Are you blind or do you have serious difficulty seeing, even when wearing glasses?AnswerDate of AmhygmuwdaPaxnvhLs86/26/2021 12:20 PM Kathie Schwab APRN.CNP * Do you have serious difficulty walking or climbing stairs?AnswerDate of FwvvqkyoihCfdpxoIp44/26/2021 12:20 PM Kathie Schwab APRN.CHARGE HAND * Do you have difficulty dressing or bathing?AnswerDate of AssessmentAuthorNo 12/15/2020 12:20 PM Kathie Schwab APRN.CHARGE HAND * Because of a physical, mental, or emotional condition, do you have difficulty doing errands alone such as visiting a doctor's office or shopping?AnswerDate of UtaamuoejkTbnyjaZp14/26/2021 12:20 PM GORDORAMIREZaKthie covarrubias BRENNA.CHARGE HAND documented as of this encounter Mental Status * Because of a physical, mental, or emotional condition, do you have serious difficulty concentrating, remembering, or making decisions?AnswerEntry Date PrecplTd65/26/2021 12:20 PM Zaheer BRENNA Vázquez.CHARGE HAND documented in this encounter Progress Notes * Emma Fang MD - 03/09/2025 10:57 AM EST UNIVERSAL PROTOCOL / SAFETY CHECKLIST Procedure to be Performed: EMG Sign In: A Moment of CARE was completed. Personnel directly involved with the procedure wore the appropriate PPE (Personal Protective Equipment). Patient/Surrogate Stated/Verified: Patient name, Date of , Relevant allergies, and The intended procedure Time Out Communication: Intended patient and procedure match the source documents. Correct side/site marked and visible. Sign Out: SIGN OUT (optional for EMERGENT procedures): Post-procedure follow-up management communicated and Plan of Care Visit completed when applicable. Liliya Fall.NCS.T Emma Fang MD Staff, [facility] Neurological [place] documented in this encounter Plan of Treatment DateTypeDepartmentCare Team (Latest Contact Info)Elfmfwvmuox14/18/2026 11:30 AM ESTOffice Visit Neurological [facility] [address] [place] [address] Zev Hudson MD [address] [place] [address] Parkinson'sdocumented as of this encounter Procedures Procedure NamePriorityDate/TimeAssociated DiagnosisCommentsEMG(NEURO/NI)Routine 03/09/2025 1:59 PM EST Ptosis of right eyelid Dysarthria documented in this encounter Results * EMG(NEURO/NI) (03/09/2025 1:59 PM EST)Specimen (Source)Anatomical Location / LateralityCollection Method / VolumeCollection TimeReceived Time03/09/2025 1:59 PM EST [facility] - 03/09/2025 3:48 PM EST Results can be seen in attached scanned documents. If you are a patient reviewing this test result, call the doctor who ordered the test with any questions. Authorizing ProviderResult TypeResult StatusKatdeshaun Bravo INTER COM SERVICER.CNPNEUROLOGY Final ResultPerforming OrganizationAddressCity/State/ZIP CodePhone Number [facility] documented in this encounter Visit Diagnoses Diagnosis Unspecified ptosis of right eyelid- Primary Ptosis of right eyelid Unspecified ptosis of eyelid Dysarthria documented in this encounter Care Teams Team MemberRelationshipSpecialtyStart DateEnd Date Radha Newton MD [address] [place] [address] PCP - GeneralFamily Medicine10/09/17 Elian Ceballos MD [address] [place] [address] Primary Staff PhysicianCardiology12/01/20 Herminia Roland MD [address] [place] [address] Primary Staff FuiqbygacNdanbewvdh63/13/21documented as of this encounter
--- OUTSIDE RECORDS SUMMARY | 2025-03-09 15:30 | XMS_ITS | Encounter Summary ---
Author Organization [facility] Address [facility] [place] [address] Care Team Providers Care Test Conductor Name Role Phone Radha Newton MD Primary Care Provider [phone] Elian Ceballos MD Unavailable Herminia Roland MD Unavailable [phone] Source Comments In the event this information is protected by the Federal Confidentiality of Alcohol and Drug AbusePatient Records regulations: The Federal rules restrict any use of the information to criminally investigate or prosecute any alcohol or drug abuse patient.[facility] Reason for Referral * Consult, Test, Treat (Routine) - AuthorizedSpecialtyDiagnoses / Procedures Referred By ContactReferred To Contact Diagnoses Primary parkinsonism (HCC) Procedures OFFICE/OUTPATIENT [facility] 60 [place] [address] [place] [phone] Phone: tel: fax: Referral IDStatusReasonStart DateExpiration DateVisits RequestedVisits [id number] PCP Requested Referral Reason for Visit * ReasonCommentsFollow Up * Consult, Test, Treat (Routine) - ClosedSpecialtyDiagnoses / ProceduresReferred By ContactReferred To Contact Diagnoses Abnormality of gait and mobility Procedures OFFICE/OUTPATIENT [facility] 60 MINUTES Zev Hudson MD [address] [place] [address] Phone: tel: fax: Referral IDStatusReasonStart DateExpiration DateVisits RequestedVisits [id number] PCP Requested Referral Encounter Details DateTypeDepartmentCare Team (Latest Contact Info)Bnzmvfzojjm42/18/2025 3:30 PM ESTOffice Visit [facility] [address], [place] [phone] Zev Hudson MD [address] [place] [address] Primary parkinsonism (HCC) (Primary Dx); Abnormality of gait and mobility; Orthostatic hypotension Social History Tobacco UseTypesPacks/DayYears UsedDateSmoking Tobacco: TxewdzVvphgmlaai958 09/12/1968 - 09/13/1983Smokeless Tobacco: NeverAlcohol UseStandard Drinks/Week CommentsYes0 (1 standard drink = 0.6 oz pure alcohol)1 beer once a monthPHQ-2 AnswerDate RecordedPHQ-2 [id number] Deprivation IndexAnswerDate RecordedNational Score (1-100), lower number is lower hmdx762209/13/2022State Score (1-10), lower number is lower tzxe9693Data from: https://www.neighborhoodatlas.medicine.[facility].edu/. Last address used for [address] [facility] Sex and Gender InformationValueDate RecordedSex Assigned at BirthNot on fileLegal ZszZzai59/02/2012 9:35 AM EST Gender IdentityNot on fileSexual OrientationNot on filedocumented as of this encounter Last Filed Vital Signs Vital SignReadingTime TakenCommentsBlood Qlnmmwyt117/8803/09/2025 3:05 PM EST Pulse--Temperature--Respiratory Rate--Oxygen Saturation--Inhaled Oxygen Concentration--Huzmjs554.4 kg (250 lb)03/09/2025 3:05 PM ESTHeight--Body Mass Index28.8902/11/2025 10:33 AM EDTdocumented in this encounter Functional Status * Are you deaf or do you have serious difficulty hearing?AnswerDate of WgsyjfhpiqWcrfbvDe65/26/2021 12:20 PM Kathie Schwab APRN.INFORMATICIST * Are you blind or do you have serious difficulty seeing, even when wearing glasses?AnswerDate of ZffzxqayjwNyqhebRh39/26/2021 12:20 PM Kathie Schwab APRN.INFORMATICIST * Do you have serious difficulty walking or climbing stairs?AnswerDate of QedsqeehmwRjcmcwUb50/26/2021 12:20 PM Kathie Schwab APRN.INFORMATICIST * Do you have difficulty dressing or bathing?AnswerDate of AssessmentAuthorNo 12/15/2020 12:20 PM Kathie Schwab APRN.INFORMATICIST * Because of a physical, mental, or emotional condition, do you have difficulty doing errands alone such as visiting a doctor's office or shopping?AnswerDate of WvobmdgfdkImcrjoDt19/26/2021 12:20 PM Kathie Schwab APRN.INFORMATICIST documented as of this encounter Mental Status * Because of a physical, mental, or emotional condition, do you have serious difficulty concentrating, remembering, or making decisions?AnswerEntry Date PfwmyiUu45/26/2021 12:20 PM Kathie Schwab APRN.INFORMATICIST documented in this encounter Patient Instructions * Patient Instructions* Zev Hudson MD - 03/09/2025 3:45 PM EST It was a pleasure to see you today. We addressed the following diagnoses: Primary parkinsonism (hcc) (primary encounter diagnosis) Abnormality of gait and mobility Orthostatic hypotension My recommendations are as follows: - Set up an appointment with Dr. Godwin (cardiology) to: Review your droxidopa therapy and any alternative blood-pressure medications Get clearance and guidance on safe exercise given your pacemaker and past ablations - Aim for at least 150 minutes per week of aerobic exercise--stationary biking is a good option--once cardiology clears you to exercise - Review the Parkinson???s disease information and websites provided; consider local exercise classes and support groups for people with Parkinsonian disorders - Work with neuromuscular team on EMG results and next steps for any additional muscle or eyelid concerns - Schedule a neurology follow-up in about two months after your cardiology visit to assess blood-pressure stability and discuss starting a low-dose medication for movement symptoms Guidelines for the Treatment of Orthostatic Hypotension (OH) 1. Make all postural changes from lying to sitting or sitting to standing, slowly. Stop 30-60 seconds between each postural change (ie sit for 30-60 seconds prior to standing, stand for 30-60 secondsbefore walking)/ 2. Drink to 2.0 -2.5 L (6-8 12oz glasses) of fluids per day. 3. Increase sodium in the diet to 3 - 5 g per day. 4. Avoid large meals which can cause low blood pressure during digestion. It is better to eat smaller meals more often than three large meals. 5. Avoid alcohol. Alcohol and cause blood to pool in the legs which may worsen low blood pressure reactions when standing. This can aggravate OH. 6. Perform lower extremity exercises to improve strength of the leg muscles. This will help preventblood from a pooling in the legs when standing and walking. 7. Use physical counter maneuvers such as leg crossing, squatting, or raising and resting the leg on a chair. These maneuvers increase blood pressure and can improve orthostatic intolerance. 8. Raise the head of the bed by 6 to 10 inches. The entire bed must be at an angle. Raising only the head portion of the bed at waist level or using pillows will not be effective. Raising the head ofthe bed will reduce urine formation overnight and there will be more volume in the circulation in the morning. 9. Use compression stockings/socks while awake. These will reduce a tendency for blood to pool in the legs when standing and may improve orthostatic intolerance. Return at or around: 06/09/25 Newly Diagnosed Parkinson's What is Parkinson's disease? Parkinson's disease is a progressive neurological disorder caused by the gradual loss of dopamine-producing brain cells. Dopamine is essential for smooth and coordinated movement, and its decline leads to the motor and non-motor symptoms associated with Parkinson???s. What should I do next? A new diagnosis of Parkinson???s can feel overwhelming. Take time to understand how the disease mayaffect your movement, mood, and overall well-being. Educating yourself is an important first step. Here are two helpful guides to get started: [employer]: Navigating Parkinson???s - Your Guide to the Early Years Download the free guide at: https://www.[employer].org/jgouifypq-vtjkur-wbmqk-diagnosed-parkinsons Parkinson???s Foundation: Newly Diagnosed Guide Download the free guide at: https://www.parkinson.org/library/book/epowp-tehlhqmxj-tcyzl We also offer a shared medical appointment for newly diagnosed patients. This session takes place at our office in [place], [place] and lasts 3-4 hours. It is held every other month and provides information about Parkinson's. You are welcome to bring a family member or friend with you. If you would like to join, please let me know. Find Support You don???t have to face Parkinson???s alone. Talking to someone--whether a family member, friend, or another person living with Parkinson???s--can make a big difference. Parkinson???s [facility] Helpline: 1-594-3ST-INFO (901-4819) Local Support Groups: There are many support groups in [facility]. Let me know if you???d like alist. What are my treatment options? Exercise Regular aerobic exercise is the most important thing you can do because it can improve your symptoms and may slow the progression of Parkinson???s disease. Aim for 30 minutes, 5 days per week (150 minutes total). Recommended activities include: ? Fast walking ? Jogging ? Stationary biking ? Swimming The umaña is to find an activity you enjoy and can stick with. Parkinson???s Exercise Programs: There are several in [facility]--let me know if you???d like a list. Specialized Parkinson???s Therapists: Physical and occupational therapists can help guide your exercise routine. If you would like to start physical and/or occupational therapy, please let me know and I will write an order for you To find a certified Parkinson???s therapist near you, visit: [email or web address] - Click on Find [facility] Clinicians Medications Deciding when to start medication is a personal choice between you and your physician. If your symptoms are mild, you may choose to begin with exercise alone. If your symptoms become more bothersome,we can discuss starting medication at your first or second visit. What About Research? Clinical trials are advancing Parkinson???s treatment, and the [facility] has several ongoingstudies. Some studies focus on newly diagnosed patients who have not yet started medication. Others include individuals who are already on treatment. If you're interested in learning more about available studies at [facility], please contact Keyonna Coombs at [phone]. Your current R Movement Disorders Team includes: Primary Movement Disorders Neurologist: Zev Hudson MD You don't have a movement disorders-specialized advanced practice provider (AQUILES) on your team yet. You may ask to have your next follow-up appointment scheduled with an AQUILES and add them to your team to expand your team, access, and appointment options. If there are any concerns before your next visit, please call or you can send a message through [employer]. You can also now schedule and select appointments through Attorney[employer]. Zev Hudson MD documented in this encounter Progress Notes * Zev Hudson MD - 03/09/2025 3:30 PM EST [facility] - FOLLOW UP EVALUATION Recording using copygram software for draft documentation of the visit was discussed with the patient/authorized personal banking representative; all questions welcomed and answered. Patient/authorized personal banking representative agreed to proceed Radha Newton MD [address] [facility] [id number] Dear Radha Newton MD: I had the pleasure of seeing Mr. Arnold for follow-up today. As you know he is a 69 year old right-handed male with a history of gait instability, dizziness, OH since 2021. Subjective Previous Plan- 01/07/2025 Visit: 1. Abnormality of gait and mobility (R26.9) 2. Falls frequently (R29.6) Chronic gait disturbance, shuffling, and forward falls approximately once per month over the past 2-3 years, with subtle bradykinesia and reduced right arm swing on exam. Differential includes Parkinsonian syndrome, though findings are mild and do not fully meet diagnostic criteria. - Ordered DEBRA scan to assess for Parkinsonian syndrome; order provided for local completion with results to be sent to this office. - Requested patient obtain and provide CD of prior brain MRI from June ([facility]) for review. - Educated patient on the limitations of Parkinson's diagnosis and the rationale for further testing. - Continue follow-up with referring provider Cinthya Bravo NP, for ongoing evaluation of eyelid issues and leg weakness. 3. Orthostatic hypotension (I95.1) Significant BP fluctuations despite dual-chamber pacemaker; orthostatic hypotension may be related to underlying neurodegenerative process. - Discussed potential link between orthostatic hypotension and Parkinsonian syndromes. 4. Restless legs syndrome (G25.81) Chronic RLS with recent exacerbation of leg pain severe enough to require ER visit. - Continue current management. Interval History: Jamil is a 69-year-old male with a history of HTN, pacemaker placement, and 3 prior ablations, presenting for follow-up of weakness, dizziness, and visual changes. He is accompanied by a pattern grader whoprovides additional history. Since the last visit, Jamil reports that his symptoms have remained unchanged. He continues to experience weakness, which he identifies as his most significant issue, primarily affecting his legs. He also reports persistent dizziness, which he describes as lightheadedness without any sensation of the room spinning. The dizziness occurs more frequently with activity, such as climbing stairs, and less often when he is sitting. He has added a handrail to assist with balance when climbing stairs. He reports no recent falls, but notes approximately 3 near-falls in the past month. He attributes these episodes to both his longstanding clumsiness and episodes of lightheadedness. He monitors his blood pressure at home, with readings ranging from 160/110 mmHg to 90/60 mmHg. He notes that his blood pressure is usually well controlled, but occasionally fluctuates. He reports that his blood pressure tends to drop depending on his activity level, and that it bottomed out during cardiac rehab lastspring. He has been taking droxidopa for the past 3 months, which was prescribed by his plastic surgery assistant. He reports that this medication has helped keep his blood pressure more organized, but has not improved his dizziness. He previously tried compression socks, but reports that they did not go well. He also reports that he was advised by his plastic surgery assistant to increase his salt intake. He reports persistent visual changes, which he describes as eyelid drooping that comes and goes throughout the day. He also reports occasional difficulty swallowing and shortness of breath that varies with activity and weather. He notes that his voice has been lower and more gravelly for the past few years, and that it sometimes goes away completely. He also reports restless legs. He denies any tremors. - DEBRA scan: Positive, consistent with a Parkinsonian disorder. Movement Disorders Medications Schedule - as of the start of the visit: Medications Questionnaires: Mood/Behavior Depression: PHQ-9 Score: 5 usually representing mild (5-9) depression. Anxiety: APRYL-7 Total Score: 3 usually representing no significant (0-4) anxiety. Finally, the following table shows the patient's overall global physical and mental health using the PROMIS scale: PROMIS-10 Flowsheet Row Office Visit from 01/07/2025 in [facility] App[facility]ment from [facility]25 [facility] Global Physical Health T Score 39.8 39.8 Global Mental Health T Score 45.8 45.8 0-10 Standard Pain Scale 3 3 *PROMIS-10 scoring scale: mean = 50, over 50 is above average, under 50 is below average Allergies Allergen Reactions Penicillins Unknown Tikosyn [Dofetilide] Other: See Comments Aphasia, dizzy, muscle cramps Vancomycin Anaphylaxis Current Outpatient Medications Medication Sig droxidopa (NORTHERA) 100 mg capsule Take 100 mg by mouth three times a day. sotalol (BETAPACE) 120 mg tablet Take 120 [...] 2 mg by mouth daily at bedtime. No current facility-administered medications for this visit. Objective Vital Signs: BP 131/88 (BP Site: Right Arm, BP Cuff Size: Large Adult) Wt 113.4 kg (250 lb) BMI 28.89 kg/m?? Orthostatic Vitals: None for this encounter No LMP for male patient. Body mass index is 28.89 kg/m??. Neurological Exam Mental Status Alert. Oriented to person, place and time. Cranial Nerves CN III, IV, : Extraocular movements intact bilaterally. No nystagmus. Diminished smooth pursuit. CN VII: Intermittent R eyelid ptosis. CN VIII: Hearing is normal. Motor Normal muscle bulk throughout. The following abnormal movements were seen: See UPDRS. Right Left Shoulder abduction 5 5 Elbow flexion 5 5 Elbow extension 5 5 Finger flexion 5 5 Hip flexion 5- 5 Knee flexion 5 5 Knee extension 5 5 Plantarflexion 5 5 Dorsiflexion 5 5 Coordination Takqfp-mo-uxok, rapid alternating movements and hbfd-yl-dtjz normal bilaterally without dysmetria. Gait Casual gait: Normal stance. Normal stride length. Reduced right arm swing. Reduced left arm swing. Normal tandem gait. Movement Disorders Scales Performed: MDS-UPDRS Motor subscale condition of exam Medication Off/On/Naiive Drug Naiive Time of UPDRS 1519 Time of Last Medication Last Medication Taken DBS Right N/A DBS Left N/A MDS-UPDRS Motor subscale scores Speech 2-Mild. Loss of modulation, diction, or volume, with a few words unclear, but the overall sentences easy to follow. Facial Expression 2-Mild. In addition to decreased eye-blink frequency, Masked facies present in the lower face as well, namely fewer movements around the mouth, such as less spontaneous smiling, butlips not parted. Rigidity Neck 1-Slight. Rigidity only detected with activation maneuver. Rigidity Right Upper Extremity 1-Slight. Rigidity only detected with activation maneuver. Rigidity Left Upper Extremity 2-Mild. Rigidity detected without the activation maneuver, but full range of motion is easily achieved. Rigidity Right Lower Extremity 0-Normal. No rigidity. Rigidity Left Lower Extremity 0-Normal. No rigidity. Finger Taps Right 1-Slight. a) the regular rhythm is broken with one or two interruptions or hesitations of the tapping movement, b) slight slowing, c) the amplitude decrements near the end of the 10taps. Finger Taps Left 2-Mild. a) 3 to 5 interruptions during tapping, b) mild slowing, c) the amplitude decrements midway in the 10-tap sequence. Hand Movements Right 1-Slight. a) the regular rhythm is broken with one or two interruptions or hesitations of the movement, b) slight slowing, c) the amplitude decrements near the end of the task. Hand Movements Left 2-Mild. a) 3 to 5 interruptions during the movements, b) mild slowing, c) the amplitude decrements midway in the task. Arm Movements Right 0-Normal. No problems. Arm Movements Left 0-Normal. No problems. Toe Taps Right 1-Slight. a) the regular rhythm is broken with one or two interruptions or hesitations of the tapping movement, b) slight slowing, c) the amplitude decrements near the end of the ten taps. Toe Taps Left 0-Normal. No problem. Leg Agility Right 0-Normal. No problems. Leg Agility Left 0-Normal. No problems. Arise From Chair 0-Normal. No problems. Able to arise quickly without hesitation. Gait 2-Mild. Independent walking but with substantial gait impairment. Gait Freezing 0-Normal. No freezing. Posture Stability 0-Normal. No problems: recovers with one or two steps. Posture 1-Slight. Not quite erect, but posture could be normal for older person. Body Bradykinesia 2-Mild. Mild global slowness and poverty of spontaneous movements. Postural Tremor Hand Right 0-Normal. No tremor. Postural Tremor Hand Left 0-Normal. No tremor. Kinetic Tremor Right 0-Normal. No tremor. Kinetic Tremor Left 1-Slight. Tremor is present but less than 1cm in amplitude. Rest Tremor Amplitude Right Upper Extremity 0-Normal. No tremor. Rest Tremor Amplitude Left Upper Extremity 0-Normal. No tremor. Rest Tremor Amplitude Right Lower Extremity 0-Normal. No tremor. Rest Tremor Amplitude Left Lower Extremity 0-Normal. No tremor. Rest Tremor Amplitude Lip/Jaw 0-Normal. No tremor. Rest Tremor Constancy 0-Normal. No tremor. MDS-UPDRS Motor subscale totals Left Total 7 Right Total 4 Midline Total 10 Tremor Total / 10 1 PIGD Total / 3 2 Overall Total 21 Change Better/Worse WORSE % Change Compared to Last Filed Total (!) 31.25 Assessment and Plan: Assessment Mr. Arnold is a right-handed 69 year old male with Progressive gait instability, dizziness and OHsince 2021 who was referred for possible parkinsonism, but also has weakness of his bilateral proximal lower extremities and R ptosis that worsens with activity. On exam, has mild bradykinesia and rig idity without tremor. DaTscan positive. Differential includes IPD vs MSA given OH, but he does not have any other autonomic features, but does have early gait instability. He has other cardiac reasons for low BP as well that may contribute. The next step is to have his BP under better control before we try sinemet as it can drop BP. He will schedule an appointment with his plastic surgery assistant to addressthis and to be cleared for exercise. The R ptosis is not explained by neurodegenerative parkinsonism. Patients with parkinsonism can feel subjectively weak due to bradykinesia/rigidity, and this may be happening with him as I did not detect any true weakness on exam today except possibly some subtle hip flexion weakness. He is currently following with neuromuscular for evaluation of this. The following are the current problems noted and addressed during this visit: Primary parkinsonism (hcc) (primary encounter diagnosis) Abnormality of gait and mobility Orthostatic hypotension Plan 03/09/2025 Visit: 1. Primary parkinsonism (HCC) (G20.C) 2. Abnormality of gait and mobility (R26.9) 3. Orthostatic hypotension (I95.1) - Continue follow-up with referring provider Shahriar Bravo NP, for ongoing evaluation of eyelid issues and leg weakness; awaiting EMG results. - Patient to schedule appointment with plastic surgery assistant (Dr. Godwin) for management of blood pressure and clearance for aerobic exercise; defer adding sinemet until BP is well controlled as it can drop BP. - Recommend lifestyle modifications for orthostatic hypotension: maintain hydration, increase salt intake if approved by cardiology, wear compression socks, raise head of bed at night. - Educated patient on importance of aerobic exercise (target 150 min/week) to slow progression; advised stationary bike as safer option given balance issues. - Provided information on Parkinson's disease, support groups, and exercise classes. - Plan to consider initiation of movement medicine (e.g., levodopa) at a low dose if blood pressurestabilizes after cardiology review. - Return visit recommended approximately 2 months after cardiology appointment to reassess blood pressure and discuss further management. Return at or around: 06/09/25 Level of service : 61807 (40-68 min). Time spent 47 min on the day of service, which included preparing to see the patient, zdvk-ic-ixdf patient care, completing clinical documentation, obtaining and/or reviewing separately obtained history, performing a medically appropriate examination, counseling and educating the patient/family/caregiver, and ordering medications, tests, or procedures. Thank you for allowing me to be part of the clinical care of this patient! I look forward to continued participation in the patient???s care with you. Please do not hesitate to call with any questions. Sincerely, Zev Hudson MD documented in this encounter Plan of Treatment DateTypeDepartmentCare Team (Latest Contact Info)Ojtlquhtodv78/18/2026 11:30 AM ESTOffice Visit [facility] [address] [facility] [place] [phone] Zev Hudson MD [address], [place] [phone] Parkinson'sNameTypePriorityAssociated DiagnosesOrder SchedulePROVIDER ORDERED FOLLOW UPReferralRoutine Primary parkinsonism (HCC) Expected: 06/09/2025, Expires: 03/09/2026documented as of this encounter Visit Diagnoses Diagnosis Primary parkinsonism (HCC)- Primary Paralysis agitans Abnormality of gait and mobility Abnormality of gait Orthostatic hypotension documented in this encounter Care Teams Team MemberRelationshipSpecialtyStart DateEnd Date Radha Newton MD [address] [place] [address] PCP - GeneralFamily Medicine10/09/17 Elian Ceballos MD [address] [place], [place] [id number] Primary Staff PhysicianCardiology12/01/20 Herminia Roland MD [address] [place] [address] Primary Staff NpmbkwxveBqnexmgdew68/13/21documented as of this encounter
[2025-03-15] VITALS (26 sets, daily range): BP systolic 105–145; BP diastolic 77–90; PULSE 70–81; TEMP 36.5; O2SAT 96–98; BMI 29.5
--- NOTE | 2025-03-15 08:57 | ECG_ITS ---
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 Measurements Intervals Mcgrady Rate: 71 P: 70 MA: 242 QRS: 24 QRSD: 82 T: 30 QT: 414 QTc: 436 Interpretive Statements 1100 Sinus rhythm 2231 First degree AV block 4068 Nonspecific Twave abnormality 9150 abnormal ECG Compared to ECG 01/10/2025 10:51:26 MA interval has lengthened Electronically Signed On 03-15-2025 19:35:07 EST by GURU CHRISTIE M.D.
--- NOTE | 2025-03-15 08:57 | XR_ITS ---
The [address] [address] Patient Name: YOLI ANTUNEZ MRN: [id number] date: 1955 Sex: M Assigned Patient Location: ER Current Patient Location: ED.MAIN Accession/Order Number: [id number] Exam Date: 03/15/2025 09:03 Report Date: 03/15/2025 09:27 At the request of: CONCHA PHILLIPS MD Procedure: XR chest 1V PORTABLE AP ERECT CHEST 0905 hours CLINICAL HISTORY: chest pain, right arm pain and numbness COMPARISON: 01/10/2025 A left-sided pacemaker is seen. There is shallow inspiration. The heart remains enlarged. The hilar and mediastinal contours are similar. There is no suspected vascular congestion. Granulomatous changes are visualized. There is no consolidation on the right. Hazy density is noted at the lateral left base. This might be related to pericardial fat pad however pleural-parenchymal change is difficult to completely exclude with only this single view. There is no pneumothorax. The bony structures are osteopenic. XR/XR chest 1V IMPRESSION: MILD CARDIOMEGALY. EQUIVOCAL LEFT BASILAR PLEURAL-PARENCHYMAL CHANGE. Impression dictated by: Aide Banks M.D. 03/15/2025 9:27 AM Dictation Location: [place] [address] Electronically authenticated by: [id number] Y Date: 03/15/2025 09:27
[2025-03-15 09:04] LABS: Hematocrit 42.7 % (42.0-54.0); Hemoglobin 14.0 g/dL (14.0-18.0); Immature Granulocytes Abs Auto 0.03 10^3/uL (0.00-0.03); Immature Granulocytes Pct Auto 0.5 % (0.0-0.5); Lymphocytes Absolute Auto 1.4 10^3/uL (1.2-3.8); Mean Corpuscular HGB Conc 32.8 g/dL (29.9-35.2); Mean Corpuscular Hemoglobin 28.3 pg (25.9-34.0); Mean Corpuscular Volume 86.3 fL (80.0-94.0); Platelet Count 205 10^3/uL (150-450); Red Blood Count 4.95 10^6/uL (4.70-6.10); White Blood Count 6.3 10^3/uL (4.0-11.0)
--- NOTE | 2025-03-15 09:16 | ED.GENADUL1 ---
HPI HPI - General Adult General Chief complaint: Chest Pain Stated complaint: ARM PAIN/NUMBNESS, BACK PAIN Time Seen by Provider: 03/15/25 08:38 Source: patient Mode of arrival: walk-in Limitations: no limitations History of Present Illness HPI narrative: 69-year-old male presents to the emergency department for chest pain. It started 1 hour ago and it started in his back and his chest and his right arm felt numb. The back pain and arm numbness have gone away and now he has chest pain. He states it is coming and going. He has a history of microvascular disease and has had heart catheterizations and does not have any stents. He states he was told by his fingernail sculpturer that there was nothing to put a stent into. No fever or cough. Related Data Home Medications ?Medication ?Instructions ?Recorded ?Confirmed levothyroxine 150 mcg tablet 150 mcg PO .COMPLEX 01/16/23 03/15/25 aspirin 81 mg tablet,delayed 81 mg PO DAILY 05/17/23 03/15/25 release (Adult Low Dose Aspirin) ergocalciferol (vitamin D2) 1,250 50,000 unit PO QWEEK 05/17/23 03/15/25 mcg (50,000 unit) capsule calcium carbonate (Calcium 500) 500 mg PO DAILY 03/15/25 03/15/25 droxidopa 100 mg capsule 100 mg PO TID 03/15/25 03/15/25 pramipexole 1 mg tablet 1 mg PO DAILY 03/15/25 03/15/25 sotalol 120 mg tablet mg 03/15/25 Allergies Allergy/AdvReac Type Severity Reaction Status Date / Time Penicillins Allergy Intermediate Unknown Verified 12/20/24 03:34 vancomycin Allergy Intermediate Unknown Verified 12/20/24 03:34 dofetilide (From Tikosyn) Allergy Unknown Unknown Verified 12/20/24 03:34 Opioid HPI Opioid Management Most Recent Opioid Data: Last Pain Scale 2 03/15/25, 08:40 Last ORT Total Score 0 01/25/24, 12:18 Last ORT Risk Category Low Risk 01/25/24, 12:18 Review of Systems ROS Narrative A ten point review of systems is negative except as noted above. [facility] Medical History (Updated 03/15/25 @ 12:09 by Satinder Willard MD) Orthostatic hypotension dysautonomic syndrome ?I95.1 - Orthostatic hypotension (ICD-10) Autonomic dysfunction ?G90.9 - Disorder of the autonomic nervous system, unspecified (ICD-10) Hypothyroid ?E03.9 - 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, unspecified (ICD-10) Presence of Watchman left atrial appendage closure device ?Z95.818 - Presence of other cardiac implants and grafts (ICD-10) Laceration Paresthesia ?R20.2 - Paresthesia of skin (ICD-10) Chest pain ?R07.9 - Chest pain, unspecified (ICD-10) Cellulitis of finger of left hand ?L03.012 - Cellulitis of left finger (ICD-10) Angina at rest ?I20.89 - Other forms of angina pectoris (ICD-10) Atrial fibrillation ?I48.91 - Unspecified atrial fibrillation (ICD-10) Pacemaker ?Z95.0 - Presence of cardiac pacemaker (ICD-10) Chronic kidney disease ?N18.9 - Chronic kidney disease, unspecified (ICD-10) Surgical History (Updated 01/25/24 @ 12:30 by Rosa Abreu) History of cholecystectomy ?Z90.49 - Acquired absence of other specified parts of digestive tract (ICD-10) History of hernia repair ?Z98.890 - Other specified postprocedural states (ICD-10) ?Z87.19 - Personal history of other diseases of the digestive system (ICD-10) Social History Smoking status: Former smoker Little interest or pleasure in doing things: not at all Feeling down, depressed, or hopeless: not at all Exam Narrative Exam Narrative: Nurses note and vital signs reviewed General:The patient appears well and in no apparent distress.Patient is resting comfortably on cart. Skin:Warm, dry, no pallor noted.There is no rash noted. Head:Normocephalic, atraumatic Eye: Normal conjunctiva, no drainage Ears, Nose, Mouth, and Throat: oral mucosa is moist. Nares patent. Cardiovascular:Regular Rate and Rhythm Respiratory:Patient is in no distress, no accessory muscle use, lungs are clear to auscultation, no wheezing, rales or rhonchi Back:non-tender GI: Soft and nontender Musculoskeletal: The patient has no evidence of calf tenderness, no pitting edema, symmetrical pulses noted bilaterally Neurological:A&O, normal speech Psychiatric:Cooperative Constitutional Vital Signs, click to edit/add: Last Vital Signs Temp 97.7 F 03/15/25 08:53 Pulse 75 03/15/25 12:14 Resp 20 03/15/25 12:14 BP 145/90 H 03/15/25 12:14 Pulse Ox 97 03/15/25 12:14 O2 Del Method Room Air 03/15/25 12:14 Course Vital Signs Vital signs: Vital Signs Blood Pressure 125/80 03/15/25 08:41 Temperature 97.7 F 03/15/25 08:53 Pulse Rate 75 03/15/25 12:14 Respiratory Rate 20 03/15/25 12:14 Blood Pressure 145/90 H 03/15/25 12:14 Pulse Oximetry 97 03/15/25 12:14 Oxygen Delivery Method Room Air 03/15/25 12:14 Medical Decision Making MDM Narrative Medical decision making narrative: His workup including 2 sets of troponin is negative. I spoke to Dr. Escalante who suggested patient be placed on Imdur. I discussed this matter with the patient and he states he has taken it before and it did not help and he does not want to take it again. The patient is able to be discharged home and will follow-up with Dr. Godwin. Treatment diagnosis and follow-up were discussed with the patient. At this point there is no evidence of myocardial infarction and I have no clinical suspicion of PE. Differential Diagnosis Differential Diagnosis: OK, chest pain, NSTEMI Lab Data Lab results reviewed: Yes I reviewed the patient's lab results Labs: Lab Results 03/15/25 03/15/25 Range/Units 08:53 10:00 WBC 6.3 (4.0-11.0) 10^3/uL RBC 4.95 (4.70-6.10) 10^6/uL Hgb 14.0 (14.0-18.0) g/dL Hct 42.7 (42.0-54.0) % MCV 86.3 (80.0-94.0) fL MCH 28.3 (25.9-34.0) pg MCHC 32.8 (29.9-35.2) g/dL RDW 14.3 (11.0-15.0) % Plt Count 205 (150-450) 10^3/uL MPV 10.2 (9.5-13.5) fL Neut % (Auto) 61.3 (43.0-75.0) % Lymph % (Auto) 22.6 (20.5-60.0) % Rankin % (Auto) 10.4 (1.7-12.0) % Eos % (Auto) 4.4 (0.9-7.0) % Baso % (Auto) 0.8 (0.2-2.0) % Neut # (Auto) 3.9 (1.4-6.5) 10^3/uL Lymph # (Auto) 1.4 (1.2-3.8) 10^3/uL Rankin # (Auto) 0.7 (0.3-0.8) 10^3/uL Eos # (Auto) 0.3 (0.0-0.7) 10^3/uL Baso # (Auto) 0.1 (0.0-0.1) 10^3/uL Abs Immat Gran (auto) 0.03 (0.00-0.03) 10^3/uL Imm/Tot Granulo (auto) 0.5 (0.0-0.5) % D-Dimer 0.36 (<=0.59) mg/L FEU Sodium 143 (136-145) mmol/L Potassium 4.0 (3.5-5.1) mmol/L Chloride 106 (98-107) mmol/L Carbon Dioxide 27.8 (21.0-32.0) mmol/L Anion Gap 13.2 BUN 31.0 H (7.0-18.0) mg/dL Creatinine 1.43 H (0.70-1.30) mg/dL Est GFR ( Amer) 59 L (>=60 mL/min/1.73m^2) Est GFR (Non-Af Amer) 49 L (>=60 mL/min/1.73m^2) BUN/Creatinine Ratio 21.7 Glucose 115 H (74-106) mg/dL Calcium 8.0 L (8.5-10.1) mg/dL Total Bilirubin 0.6 (0.2-1.0) mg/dL AST 26 (15-37) U/L ALT 43 (16-63) U/L Alkaline Phosphatase 68 (46-116) U/L Troponin I High Sens 4.8 4.3 (4.0-76.1) pg/mL Total Protein 7.5 (6.4-8.2) g/dL Albumin 3.8 (3.4-5.0) g/dL Globulin 3.7 g/dL Albumin/Globulin Ratio 1.0 ECG Data Attestation: I personally reviewed and interpreted this ECG as follows: (EKG on my interpretation shows sinus rhythm with first-degree block. No acute changes.) Discharge Plan Discharge Chief Complaint: Chest Pain Clinical Impression: Chest pain Qualifiers: Chest pain type: precordial pain Qualified Code(s): R07.2 - Precordial pain Patient Disposition: Home, Self-Care Time of Disposition Decision: 12:09 Condition: Good Mode of Transportation: Private Vehicle Prescriptions / Home Meds: No Action ergocalciferol (vitamin D2) 1,250 mcg (50,000 unit) capsule 50,000 unit PO QWEEK aspirin [Adult Low Dose Aspirin] 81 mg tablet,delayed release (DR/EC) 81 mg PO DAILY calcium carbonate [Calcium 500] 500 mg calcium (1,250 mg) tablet,chewable 500 mg PO DAILY pramipexole 1 mg tablet 1 mg PO DAILY sotalol 120 mg tablet droxidopa 100 mg capsule 100 mg PO TID Rx Instructions: give consistently with OR without food, upon rising, at midday, late PM/at least 3hrs before bedtime levothyroxine 150 mcg tablet 150 mcg PO .COMPLEX Rx Instructions: 150 mcg orally 4 times a wk; Mon, Wed, Fri, Sun; Print Language: Armenian Instructions: Chest Pain (ED) Additional Instructions: Follow-up with Dr. Godwin. Return to emergency department if symptoms worsen. Referrals: ANASTASIA BURRIS [Primary Care Provider, Family Practice] - 1 week Discharge Date/Time: 03/15/25 12:16
[2025-03-15 09:20] LABS: Alanine Aminotransferase 43 U/L (16-63); Albumin Globulin Ratio 1.0; Albumin Level 3.8 g/dL (3.4-5.0); Alkaline Phosphatase 68 U/L (46-116); Anion Gap 13.2; Aspartate Amino Transferase 26 U/L (15-37); Blood Urea Nitrogen 31.0 mg/dL (7.0-18.0); Calcium 8.0 mg/dL (8.5-10.1); Carbon Dioxide 27.8 mmol/L (21.0-32.0); Chloride 106 mmol/L (98-107); Estimated GFR (African America 59 (>=60 mL/min/1.73m^2); Estimated GFR (Non-African Ame 49 (>=60 mL/min/1.73m^2); Globulin 3.7 g/dL; Glucose 115 mg/dL (74-106); Potassium 4.0 mmol/L (3.5-5.1); Sodium 143 mmol/L (136-145); Total Protein 7.5 g/dL (6.4-8.2)
[2025-03-15] MEDS: NITROGLYCERIN 0.4 MG BOTTLE SL (09:22)
[2025-03-15] MEDS: ASPIRIN 81 MG TAB.CHEW 324 MG PO (09:22)
--- OUTSIDE RECORDS SUMMARY | 2025-03-15 09:22 | XMS_ITS | Encounter Summary ---
Author Organization [facility] Address [address] [place] [address] Care Team Providers Care Associate Account Executive Name Role Phone Radha Newton MD Primary Care Provider [phone] Elian Ceballos MD Unavailable Herminia Roland MD Unavailable [phone] Source Comments In the event this information is protected by the Federal Confidentiality of Alcohol and Drug AbusePatient Records regulations: The Federal rules restrict any use of the information to criminally investigate or prosecute any alcohol or drug abuse patient.[facility] Encounter Details DateTypeDepartmentCare Team (Latest Contact Info)Bdcykugttgj99/18/2025Travel Social History Tobacco UseTypesPacks/DayYears UsedDateSmoking Tobacco: VcwyeyNvsapmrjrb235 09/12/1968 - 09/13/1983Smokeless Tobacco: NeverAlcohol UseStandard Drinks/Week CommentsYes0 (1 standard drink = 0.6 oz pure alcohol)1 beer once a monthPHQ-2 AnswerDate RecordedPHQ-2 qksnp9375Area Deprivation IndexAnswerDate RecordedNational Score (1-100), lower number is lower xzqc109309/13/2022State Score (1-10), lower number is lower qqmn0503Data from: https://www.neighborhoodatlas.medicine.[facility].edu/. Last address used for [address] Sex and Gender InformationValueDate RecordedSex Assigned at BirthNot on fileLegal BjqTpby03/02/2012 9:35 AM EST Gender IdentityNot on fileSexual OrientationNot on filedocumented as of this encounter Functional Status * Are you deaf or do you have serious difficulty hearing?AnswerDate of YbufrbpdkfOsflfhCd67/26/2021 12:20 PM Kathie Schwab APRN.SEO MANAGER * Are you blind or do you have serious difficulty seeing, even when wearing glasses?AnswerDate of UljhspfqbhUifnaqEg85/26/2021 12:20 PM Kathie Schwab APRN.SEO MANAGER * Do you have serious difficulty walking or climbing stairs?AnswerDate of WgvapluqjhXuuhrlUl97/26/2021 12:20 PM Kathie Schwab APRN.SEO MANAGER * Do you have difficulty dressing or bathing?AnswerDate of AssessmentAuthorNo 12/15/2020 12:20 PM Kathie Schwab APRN.SEO MANAGER * Because of a physical, mental, or emotional condition, do you have difficulty doing errands alone such as visiting a doctor's office or shopping?AnswerDate of UhpaehtvvzZcdhrbQz21/26/2021 12:20 PM Kathie Schwab APRN.SEO MANAGER documented as of this encounter Mental Status * Because of a physical, mental, or emotional condition, do you have serious difficulty concentrating, remembering, or making decisions?AnswerEntry Date WytsfpPe16/26/2021 12:20 PM Kathie Schwab APRN.SEO MANAGER documented in this encounter Plan of Treatment DateTypeDepartmentCare Team (Latest Contact Info)Dtomzepnmha85/18/2026 11:30 AM ESTOffice Visit Neurological Muslim [address] [place] [address] Zev Hudson MD [address] [place] [address] Parkinson'sdocumented as of this encounter Visit Diagnoses Not on filedocumented in this encounter Care Teams Team MemberRelationshipSpecialtyStart DateEnd Date Radha Newton MD [address] [place] [id number] PCP - GeneralFamily Medicine10/09/17 Elian Ceballos MD [address] [place] [address] Primary Staff PhysicianCardiology12/01/20 Herminia Roland MD [address] [place], [place] [id number] Primary Staff NuoattdqnVdbtjbdtwl11/13/21documented as of this encounter
--- OUTSIDE RECORDS SUMMARY | 2025-03-15 09:22 | XMS_ITS | Encounter Summary ---
Author Organization [facility] Address [address] [place] [address] Care Team Providers Care Scaling Machine Operator Name Role Phone Radha Newton MD Primary Care Provider [phone] Elian Ceballos MD Unavailable Herminia Roland MD Unavailable [phone] Source Comments In the event this information is protected by the Federal Confidentiality of Alcohol and Drug AbusePatient Records regulations: The Federal rules restrict any use of the information to criminally investigate or prosecute any alcohol or drug abuse patient.[facility] Encounter Details DateTypeDepartmentCare Team (Latest Contact Info)Vtlgeygwyyc44/24/2025 Patient Msg Neurology [address] [place] [address] Provider, [facility] Requested EMG Appointment Social History Tobacco UseTypesPacks/DayYears UsedDateSmoking Tobacco: UxkfycEymywvrkss776 09/12/1968 - 09/13/1983Smokeless Tobacco: NeverAlcohol UseStandard Drinks/Week CommentsYes0 (1 standard drink = 0.6 oz pure alcohol)1 beer once a monthPHQ-2 AnswerDate RecordedPHQ-2 mzywn6375Area Deprivation IndexAnswerDate RecordedNational Score (1-100), lower number is lower mjaw307709/13/2022State Score (1-10), lower number is lower utpo3353Data from: https://www.neighborhoodatlas.medicine.[facility]/. Last address used for [address] [facility] Sex and Gender InformationValueDate RecordedSex Assigned at BirthNot on fileLegal LpwQhpe87/02/2012 9:35 AM EST Gender IdentityNot on fileSexual OrientationNot on filedocumented as of this encounter Functional Status * Are you deaf or do you have serious difficulty hearing?AnswerDate of IadiwjmnkuWyevjoRl76/26/2021 12:20 PM Kathie Schwab APRN.STICK INSERTER * Are you blind or do you have serious difficulty seeing, even when wearing glasses?AnswerDate of CagiavegadNjrxwjFe80/26/2021 12:20 PM Kathie Schwab APRN.STICK INSERTER * Do you have serious difficulty walking or climbing stairs?AnswerDate of KtcqqozwltMtdiycIu83/26/2021 12:20 PM Kathie Schwab APRN.STICK INSERTER * Do you have difficulty dressing or bathing?AnswerDate of AssessmentAuthorNo 12/15/2020 12:20 PM Kathie Schwab APRN.STICK INSERTER * Because of a physical, mental, or emotional condition, do you have difficulty doing errands alone such as visiting a doctor's office or shopping?AnswerDate of NtirnhmwteYjqulpYc59/26/2021 12:20 PM Kathie Schwab APRN.STICK INSERTER documented as of this encounter Mental Status * Because of a physical, mental, or emotional condition, do you have serious difficulty concentrating, remembering, or making decisions?AnswerEntry Date WysfcgPd09/26/2021 12:20 PM Kathie Schwab APRN.STICK INSERTER documented in this encounter Plan of Treatment DateTypeDepartmentCare Team (Latest Contact Info)Dpdxuxuvucm22/18/2026 11:30 AM ESTOffice Visit Neurological [facility] [address] [place] [address] Zev Hudson MD [address] [place] [address] Parkinson'sdocumented as of this encounter Visit Diagnoses Not on filedocumented in this encounter Care Teams Team MemberRelationshipSpecialtyStart DateEnd Date Radha Newton MD [address] [place] [phone] PCP - GeneralFamily Medicine10/09/17 Elian Ceballos MD [address] [place] [address] Primary Staff PhysicianCardiology12/01/20 Herminia Roland MD [address] [place] [address] Primary Staff SlhqxodedXimhqwxhpf82/13/21documented as of this encounter
--- OUTSIDE RECORDS SUMMARY | 2025-03-15 09:22 | XMS_ITS | Encounter Summary ---
Author Organization [facility] Address [address] [place] [address] Care Team Providers Care Manager Trade Marketing Name Role Phone Radha Newton MD Primary Care Provider [phone] Elian Ceballos MD Unavailable Herminia Roland MD Unavailable [phone] Source Comments In the event this information is protected by the Federal Confidentiality of Alcohol and Drug AbusePatient Records regulations: The Federal rules restrict any use of the information to criminally investigate or prosecute any alcohol or drug abuse patient.[facility] Reason for Referral * Outpatient Procedure (Routine) - New RequestSpecialtyDiagnoses / Procedures Referred By ContactReferred To ContactNEUROLOGICAL INSTITUTE Diagnoses Ptosis of right eyelid Dysarthria Procedures EMG(NEURO/NI) NERVE CONDUCTION STUDIES 9-10 STUDIES Shahriar Bravo APRN.PLANT FACILITIES TECHNICIAN [address] [place] [address] Phone: tel: fax: Neurology [address] [place] [address] Phone: tel: Referral IDStatusReasonStnorwood DateExpiration DateVisits RequestedVisits [id number] Request Auto-Generated Referral * Consult, Test, Treat (Routine) - AuthorizedSpecialtyDiagnoses / Procedures Referred By ContactReferred To Contact Diagnoses Ptosis of right eyelid Dysarthria Procedures OFFICE/OUTPATIENT [facility] 60 MINUTES Shahriar Bravo APRN.PLANT FACILITIES TECHNICIAN [address] [place] [address] Phone: tel: fax: Referral IDStatusReasonStaldo DateExpiration DateVisits RequestedVisits [id number] PCP Requested Referral Scheduling Instructions To see a physician in neuromuscular Encounter Details DateTypeDepartmentCare Team (Latest Contact Info)Eofgyslqgro85/21/2025Results Follow-Up Neurology [address] [place] [address] Shahriar Bravo APRN.PLANT FACILITIES TECHNICIAN [address] [place] [phone] Social History Tobacco UseTypesPacks/DayYears UsedDateSmoking Tobacco: IcpayvNrzxzsehnw696 09/12/1968 - 09/13/1983Smokeless Tobacco: NeverAlcohol UseStandard Drinks/Week CommentsYes0 (1 standard drink = 0.6 oz pure alcohol)1 beer once a monthPHQ-2 AnswerDate RecordedPHQ-2 hiwpw279rea Deprivation IndexAnswerDate RecordedNational Score (1-100), lower number is lower ieej242809/13/2022State Score (1-10), lower number is lower rumx0933Data from: https://www.neighborhoodatlas.medicine.[facility].edu/. Last address used for [address] [facility] [address] [facility] Sex and Gender InformationValueDate RecordedSex Assigned at BirthNot on fileLegal JcvFjln62/02/2012 9:35 AM EST Gender IdentityNot on fileSexual OrientationNot on filedocumented as of this encounter Functional Status * Are you deaf or do you have serious difficulty hearing?AnswerDate of XldzwoovwrVjfxdvKt22/26/2021 12:20 PM Kathie Schwab APRN.PLANT FACILITIES TECHNICIAN * Are you blind or do you have serious difficulty seeing, even when wearing glasses?AnswerDate of GfipdbapktYhaxesTn68/26/2021 12:20 PM Kathie Schwab APRN.PLANT FACILITIES TECHNICIAN * Do you have serious difficulty walking or climbing stairs?AnswerDate of EmtiopsuffStoyczBu46/26/2021 12:20 PM Kathie Schwab APRN.PLANT FACILITIES TECHNICIAN * Do you have difficulty dressing or bathing?AnswerDate of AssessmentAuthorNo 12/15/2020 12:20 PM Kathie Schwab APRN.PLANT FACILITIES TECHNICIAN * Because of a physical, mental, or emotional condition, do you have difficulty doing errands alone such as visiting a doctor's office or shopping?AnswerDate of LjkotgyuvbXhkhyoFu50/26/2021 12:20 PM Kathie Schwab APRN.PLANT FACILITIES TECHNICIAN documented as of this encounter Mental Status * Because of a physical, mental, or emotional condition, do you have serious difficulty concentrating, remembering, or making decisions?AnswerEntry Date HywsltCo05/26/2021 12:20 PM Kathie Schwab APRN.PLANT FACILITIES TECHNICIAN documented in this encounter Plan of Treatment DateTypeDepartmentCare Team (Latest Contact Info)Qvrfumpizyd42/18/2026 11:30 AM ESTOffice Visit Neurological [facility] [address] [place] [address] Zev Hudson MD [address] [place], [place] [phone] Parkinson'sNameTypePriorityAssociated DiagnosesOrder ScheduleEMG(NEURO/NI)EMG Routine Ptosis of right eyelid Dysarthria 1 Occurrences starting 03/12/2025 until 03/12/2026NameTypePriorityAssociated DiagnosesOrder ScheduleCONSULT TO NEUROMUSCULAR MEDICReferralRoutine Ptosis of right eyelid Dysarthria 1 Occurrences starting 03/12/2025 until 03/12/2026documented as of this encounter Visit Diagnoses Diagnosis Ptosis of right eyelid- Primary Unspecified ptosis of eyelid Dysarthria documented in this encounter Care Teams Team MemberRelationshipSpecialtyStart DateEnd Date Radha Newton MD [address] [place] [address] PCP - GeneralFamily Medicine10/09/17 Elian Ceballos MD [address] [place] [address] Primary Staff PhysicianCardiology12/01/20 Herminia Roland MD [address] [place] [address] Primary Staff RqqfjvjaxHuknhbudki10/13/21documented as of this encounter
--- OUTSIDE RECORDS SUMMARY | 2025-03-15 09:22 | XMS_ITS | Encounter Summary ---
Author Organization [facility] [place] Address [address] [place] [address] Care Team Providers Care Patient Insurance Clerk Name Role Phone Radha Newton MD Primary Care Provider [phone] Elian Ceballos MD Unavailable Herminia Roland MD Unavailable [phone] Source Comments In the event this information is protected by the Federal Confidentiality of Alcohol and Drug AbusePatient Records regulations: The Federal rules restrict any use of the information to criminally investigate or prosecute any alcohol or drug abuse patient.[facility] [place] Encounter Details DateTypeDepartmentCare Team (Latest Contact Info)Lsdmydbmqfj02/08/2025 Get Medical Advice Neurology [address] [place] [address] Shahriar Bravo, TECHNICAL MGR.SENIOR BUSINESS PROCESS ANALYST [address] [place] [address] EEG Social History Tobacco UseTypesPacks/DayYears UsedDateSmoking Tobacco: MokcnrSlglvdiwkg554 09/12/1968 - 09/13/1983Smokeless Tobacco: NeverAlcohol UseStandard Drinks/Week CommentsYes0 (1 standard drink = 0.6 oz pure alcohol)1 beer once a monthPHQ-2 AnswerDate RecordedPHQ-2 [id number] Deprivation IndexAnswerDate RecordedNational Score (1-100), lower number is lower sebl913309/13/2022State Score (1-10), lower number is lower [id number] from: https://www.neighborhoodatlas.[facility] [place]/. Last address [id number] [facility] Sex and Gender InformationValueDate RecordedSex Assigned at BirthNot on fileLegal PfuGons18/02/2012 9:35 AM EST Gender IdentityNot on fileSexual OrientationNot on filedocumented as of this encounter Functional Status * Are you deaf or do you have serious difficulty hearing?AnswerDate of AfjzxevtnxUruafeSv47/26/2021 12:20 PM Kathie Schwab APRN.SENIOR BUSINESS PROCESS ANALYST * Are you blind or do you have serious difficulty seeing, even when wearing glasses?AnswerDate of GlcfjnucgmPhmnpnNy95/26/2021 12:20 PM Kathie Schwab APRN.SENIOR BUSINESS PROCESS ANALYST * Do you have serious difficulty walking or climbing stairs?AnswerDate of WsrfcgtqesVnjkumBv76/26/2021 12:20 PM Kathie Schwab APRN.SENIOR BUSINESS PROCESS ANALYST * Do you have difficulty dressing or bathing?AnswerDate of AssessmentAuthorNo 12/15/2020 12:20 PM Kathie Schwab APRN.SENIOR BUSINESS PROCESS ANALYST * Because of a physical, mental, or emotional condition, do you have difficulty doing errands alone such as visiting a doctor's office or shopping?AnswerDate of PhivcotpgiDtygewWz46/26/2021 12:20 PM Kathie Schwab APRN.SENIOR BUSINESS PROCESS ANALYST documented as of this encounter Mental Status * Because of a physical, mental, or emotional condition, do you have serious difficulty concentrating, remembering, or making decisions?AnswerEntry Date HcqugtSt31/26/2021 12:20 PM Kathie Schwab APRN.SENIOR BUSINESS PROCESS ANALYST documented in this encounter Plan of Treatment DateTypeDepartmentCare Team (Latest Contact Info)Lsegpowfsfl07/18/2026 11:30 AM ESTOffice Visit Neurological Confucianism [address] [address] Zev Hudson MD [address] [place], [place] [id number] Parkinson'sdocumented as of this encounter Visit Diagnoses Not on filedocumented in this encounter Care Teams Team MemberRelationshipSpecialtyStart DateEnd Date Radha Newton MD [address] [place] [address] PCP - GeneralFamily Medicine10/09/17 Elian Ceballos MD [address] [place] [address] Primary Staff PhysicianCardiology12/01/20 Herminia Roland MD [address] [place] [address] Primary Staff ObawczbyqHkliiujxch80/13/21documented as of this encounter
--- OUTSIDE RECORDS SUMMARY | 2025-03-15 09:22 | XMS_ITS | Clinical Summary ---
Author Organization [facility] Address [address] [place] [address] Care Team Providers Care Coremaker Supervisor Name Role Phone Radha Newton MD Primary Care Provider [phone] Elian Ceballos MD Unavailable Herminia Roland MD Unavailable [phone] Allergies Active AllergyReactionsCriticalityNoted FxwfQkaanrdbYixnabaacjhVgzuyfw24/24/2001 DofetilideOther: See Ssjbuwwe83/06/2023 Aphasia, dizzy, muscle cramps AuxrmcmpeqGzyajjtwtlf71/06/2023 Medications MedicationSigDispense QuantityRefillsLast FilledStart DateEnd DateStatus pramipexole (MIRAPEX) 1 mg tablet Take 2 mg by mouth daily at bedtime.Active levothyroxine (LEVOXYL) 175 mcg tablet Take 1 tablet by mouth daily before breakfast.12/15/2020ctive nitroglycerin sublingual (NITROQUICK) 0.4 mg SL tablet Dissolve 0.4 mg under the tongue every 5 minutes as needed.Active ergocalciferol 50,000 unit capsule (VITAMIN D2, DRISDOL) Take 50,000 Units by mouth one time a week.Active calcium carbonate 500 mg calcium (1,250 mg) chewable tablet Take 1 tablet by mouth once daily.Active calcitriol (ROCALTROL) 0.25 mcg capsule Take 0.25 mcg by mouth once daily.Active aspirin, enteric coated (ASPIRIN, ENTERIC COATED) 81 mg EC tablet Take 81 mg by mouth once daily.Active sotalol (BETAPACE) 120 mg tablet Take 120 mg by mouth every 12 hours.Active magnesium oxide (MAG-OX) 400 mg (241.3 mg magnesium) tablet Take 235 mg by mouth two times a day.Active levothyroxine (SYNTHROID) 150 mcg tablet Take 150 mcg by mouth daily before breakfast.Active droxidopa (NORTHERA) 100 mg capsule Take 100 mg by mouth three times a day.5Active Active Problems Patient Care Coordination No te Formatting of this note migh t be different from the original. This is a 65 yo male who is known to Dr Elian Ceballos. Past medical history include persistent atrial fibrillation s/p PVI 12/2019 ( [facility]), redo PVI 07/2020 ( [facility]) , atrial flutter s/p CTI 11/2019 ( [facility]), reported CAD ( no details at this time) , HTN, HLD, ADA, TIA ( 2016, 2017), thyroid disease and ckd STAGE ii. Patient previously on sotalol however stopped secondary to hypotension/ bradycardia. He presents for further rhythm control and Tikosyn administration. Patient has received two doses thus far. Patient with two acute epsiodes of visual disturbances and aphasia. 2clot called 12/13- CT head negative for acute findings. Neurology following. On 12/14, the patient had two more episodes of acute headache with chest pain and difficulty with speech. Neurology came to bedside and recommended Brain MRI, headache cocktail and 20 minute EEG. ProblemNoted DateDiagnosed DateChronic migraine without aura, with intractable migraine, so stated, with status tkfsrvqyzrz44/09/2023alculus of gallbladder 01/02/2022Idiopathic acute pancreatitis without infection or emopdgmt23/13/2022 Atrial ixlkqgc9412/14/2020 Overview (12/14/2020): - S/p CTI ablation 11/2019- [facility] Primary ambmoxeqvtia23/25/2021 Overview (12/14/2020): - chronic, stable - continue home Benazepril, norvasc CAD (coronary artery disease)12/14/2020 Overview (12/14/2020): - reported 60% stenosis - further details unknown CKD (chronic kidney disease)12/14/2020 Overview (12/14/2020): - baseline Cr unknown DAA (obstructive sleep apnea)12/14/2020 Overview (12/14/2020): -chronic, on CPAP at home -stable -Continue CPAP while in hospital TIA (transient ischemic attack)12/14/2020 Overview (12/14/2020): TIA 2016, 2017 - Patient with visual disturbances,m aphasia eveing of 12/13 and morning of 12/14-- 2CLOT activated - CT head 12/13/2020- no acute findings - EEG today, headache cocktail and brain MRI - Neurology following Thyroid dzjcwqn0812/14/2020 Overview (12/14/2020): - chronic, stable - home replacement therapy continued GERD (gastroesophageal reflux disease)12/14/2020 Overview (12/14/2020): - chronic - receiving home protonix, sucralfate Restless leg12/14/2020 Overview (12/14/2020): - chronic - continue home mirapex Persistent atrial dpkmxbdjzuuf57/24/2021 Overview (12/14/2020): - Chronic - stable - Known to Dr Elian Ceballos - S/p PVI 12/2019 ( [facility]) , redo PVI 07/2020 ([facility]) - intolerant to Sotalol- reported hypotension/ bradycardia) - Most recent TTE 2016- EF 55-60% - CHADSVASC score- 5 - age, HTN, TIA, CAD - OAC-- Eliquis ; Denies any major bleeding events - currently on no AV israel blocking agents secondary to bradycardia - baseline Qtc 450 - Serum creatinine: 1.48 mg/dL (H) 12/14/20 0551 Estimated creatinine clearance: 68.2 mL/min (A) Retinal detachment, left10/07/2017 Overview (10/07/2017): Added automatically from request for surgery [id number] Total retinal detachment of left eye10/07/2017 Overview (10/07/2017): Added automatically from request for surgery [id number] Nuclear sclerotic cataract, left10/07/2017 Overview (10/07/2017): Added automatically from request for surgery [id number] Tension headache Encounters DateTypeDepartmentCare RtjbJmlwbgzlseo75/24/2025 Patient Msg Neurology [address] [place] [address] Provider, Ccf Requested EMG Grhlncspxzr56/21/2025Results Follow-Up Neurology [address] [place], [place] [phone] Shahriar Bravo REMOTE SENSING RESEARCH SCIENTIST.PAINTER TUMBLING BARREL 03/12/2025 Get Medical Advice Neurology [address] [place], [place] [phone] Shahriar Bravo REMOTE SENSING RESEARCH SCIENTIST.PAINTER TUMBLING BARREL EMG03/09/2025 3:30 PM ESTOffice Visit Neurological [facility] [address] [place] [address] Zev Hudson MD Primary parkinsonism (HCC) (Primary Dx); Abnormality of gait and mobility; Orthostatic ymwiwrnhrtw59/18/2025 12:00 PM ESTProcedure Neurology [address] [place] [address] EMG03/09/20256897Fkxiuc06/08/2025 Get Medical Advice Neurology [address] [place] [address] Shahriar Bravo, REMOTE SENSING RESEARCH SCIENTIST.PAINTER TUMBLING BARREL EEG02/12/2025 Patient Msg Neurology [address] [place] [address] Shahriar Bravo, REMOTE SENSING RESEARCH SCIENTIST.PAINTER TUMBLING BARREL AVS1 11:45 AM EDTOffice Visit Neurology [address] [place] [address] Shahriar Bravo, REMOTE SENSING RESEARCH SCIENTIST.PAINTER TUMBLING BARREL Orthostatic hypotension (Primary Dx); Ptosis of right eyelid; TIA (transient ischemic attack); Transient loss of consciousness; Orthostatic lightheadedness; Chronic migraine with aura without status migrainosus, not intractable; Cfugpnoozm13/16/9053Iayuwj31/30/2025Telephone [facility] [address] [phone] Zev Hudson MD Wsbsjz5901/11/2025Telephone [facility] [address] [place], [place] [phone] Zev Hudson MD Imaging Request ([facility])01/07/2025 4:00 PM EDTOffice Visit [facility]rological [facility] [address] [place], [place] [phone] Zev Hudson MD Abnormality of gait and mobility (Primary Dx); Falls frequently; Orthostatic mbwxzrlehth76/28/2025Results Follow-Up Neurology [address] [place] [address] Shahriar Bravo, REMOTE SENSING RESEARCH SCIENTIST.PAINTER TUMBLING BARREL 12/15/2024 Patient Msg Neurology [address] [place] [address] Shahriar Bravo, REMOTE SENSING RESEARCH SCIENTIST.PAINTER TUMBLING BARREL lab follow up12/15/2024[place] [facility] [address] [place] [address] Shahriar Bravo, REMOTE SENSING RESEARCH SCIENTIST.PAINTER TUMBLING BARREL Received Outside Medical Mvgkbyv5712/14/20249128Fgmwab10/25/2025 Get Medical Advice Neurology [address] [place] [address] Shahriar Bravo, REMOTE SENSING RESEARCH SCIENTIST.PAINTER TUMBLING BARREL Test resultsfrom Last 3 Months Immunizations ImmunizationAdministration DatesNext Dueinfluenza (IIV4) vaccine, age 6 mo - 64 yr, quadrivalent, PF (AFLURIA, FLUARIX, FLULAVAL, FLUZONE)01/28/2016tetanus diphtheria pertussis (Tdap) vaccine, age 7+ yr (ADACEL, BOOSTRIX)01/27/2013 Family History Medical HistoryRelationCommentsKidney DiseaseBrother5'10 joint problemsDaughter 5'9 AneurysmFatherabdominal aortic aneurysm, one repaired another needed prior to his from lung cancer, 6' tall, very thinCancerFatherLung cancerHeart Maternal GrandfatherHeartMaternal GrandmotherCancerMotherLung cancerStrokeMother carotid artery diseaseAneurysmPaternal Grandfatherthoracic aortic dissection vs rupture, 54, diagnosed postmortem, 6'tallHeartPaternal GrandfatherGlaucoma Paternal GrandmotherAneurysmPaternal Uncle 1location unknownCancerPaternal Uncle 25'7 spina bifida occulta [other]Son6'2 tallRelationStatusCommentsBrotherAlive DaughterAliveFatherDeceasedMaternal GrandfatherMaternal GrandmotherMother DeceasedPaternal AuntDeceasedPaternal GrandfatherDeceasedPaternal Grandmother DeceasedPaternal Uncle 1DeceasedPaternal Uncle 2DeceasedSonAlive Social History Tobacco UseTypesPacks/DayYears UsedDateSmoking Tobacco: SiqnhyTdsowphdum518 09/12/1968 - 09/13/1983Smokeless Tobacco: Never Tobacco Cessation:Counseling Given: No Alcohol UseStandard Drinks/WeekCommentsYes0 (1 standard drink = 0.6 oz pure alcohol)1 beer once a monthPHQ-2AnswerDate RecordedPHQ-2 zvpos024rea Deprivation IndexAnswerDate RecordedNational Score (1-100), lower number is lower iytb308209/13/2022State Score (1-10), lower number is lower ymiz213 Data from: https://www.neighborhoodatlas.[facility].edu/. Last address used for [address] [facility] Sex and Gender InformationValue Date RecordedSex Assigned at BirthNot on fileLegal OilRuge63/02/2012 9:35 AM EST Gender IdentityNot on fileSexual OrientationNot on file Last Filed Vital Signs Vital SignReadingTime TakenCommentsBlood Lqjcykxt969/8811 3:05 PM EST Cxhhc9449 10:33 AM HAVNzoohgnolls65.6 ??C (97.9 ??F)03/10/2021 3:27 PM ESTRespiratory Jegm6566 8:24 AM EDTOxygen Ktihbmssmd97%02/11/2025 10:33 AM EDTInhaled Oxygen Concentration--Gbhfgr274.4 kg (250 lb)03/09/2025 3:05 PM WETYdivxq789.1 cm (6' 6 )02/11/2025 10:33 AM EDTBody Mass Index28.8902/11/2025 10:33 AM EDT Plan of Treatment DateTypeDepartmentCare Team (Latest Contact Info)Owpvngtkifl09/18/2026 11:30 AM ESTOffice Visit Neurological [facility] [address] [place] [address] Zev Hudson MD [address] [place] [address] Parkinson'sHealth MaintenanceDue DateLast DoneCommentsAbdominal Aortic Aneurysm Xcwbdjuje62/30/1954Annual PCP Team Chronic Disease Visit1971Anxiety Ucfmuwswi43/30/1972Depression Yyoxiqoax65/30/1972Hepatitis C Qkodumjdf02/30/1972 CT Nemozjrqigmj71/30/1999Cologuard (FIT-DNA)05/21/19987826Xhdoljdbkgo59/30/1999 Colorectal Cancer Dzzzpqcdg07/30/1999Fecal Occult Blood1998Sigmoidoscopy 1998Pneumococcal Vaccine: 50+ (1 of 1 - PCV)2003Shingrix Vaccine (1 of 2)2003Medicare Annual Wellness Visit04/22/2018LDL Rnrelgeoyhr62/12/2023 2DTaP,Tdap,Td Vaccine (2 - Td or Tdap)dvance Directive Ywnyxxvrbp02/01/2025Covid-19 Vaccine ( season)2024 04/10/2021, 07/15/2020, 06/17/2020Influenza Vaccine (#1) Hemoglobin/Xkirlxsohh49, 01/28/2024, 01/27/2024, Additional history existsSerum Nuaioriatu84, 04/09/2024, 04/08/2024, Additional history existsLipid Rerwzcybg28/iabetes Screening 712/, 04/09/2024, 04/08/2024, Additional history existsRSV Vaccine (1 - 1-dose 75+ series)2028 Medical Devices ImplantedTypeAreaManufacturerDevice IdentifierShelf Expiration DateModel / Serial / LotSleeve 2.4mm 1.5mm Silicone 30mm Scleral Round Sterile - [id number] [facility]: EyeLABTICIAN OPHTHALMICS [id number] / / [id number] Silicone [id number] Retinal 9229 Sterile - [id number] Implanted:Qty: 1 on [facility]/2017 [facility]plantLeft: EyeLABTICIAN OPHTHALMICS INC05/22/2022S 4050 / [id number] / Gas Ispan Constellation Intraocular Vision System C3f8 125gm - [id number] Implanted:Qty: 1 [facility]2017 [facility]plantLeft: EyeAL[employer]S ERTRKVXR02/30/[id number] / / [id number] Iol Ultrasert 16 - [id number] Implanted:Qty: 1 on 10[facility]15/2017 [facility]Intraocular LensLeft: EyeAL[employer]S HEZBDUXJ55/31/3836PW23W2.16 / [id number] / Procedures Procedure NamePriorityDate/TimeAssociated DiagnosisCommentsEMG(NEURO/NI)Routine 03/09/2025 1:59 PM EST Ptosis of right eyelid Dysarthria XR OUTSIDE CD DICOM HAFFHC3301/29/2025 NM OUTSIDE CD DICOM VOASFV1001/29/2025 EXTERNAL LAB12/15/2024 10:49 AM EDT ACETYLCHOLINE REC BINDING UVEdprvdz09/26/2025 8:46 AM EDT Ptosis of right eyelid Hoarseness of voice COMPLETE BLOOD VWEMPNMBF31/19/2021 12:30 PM EST BASIC METABOLIC WWPDCMGLW93/19/2021 12:30 PM EST from Last 3 Months or Most Recently Relevant to Health Maintenance Results * EMG(NEURO/NI) (03/09/2025 1:59 PM EST)Specimen (Source)Anatomical Location / LateralityCollection Method / VolumeCollection TimeReceived Time03/09/2025 1:59 PM EST Narrative [facility] - 03/09/2025 3:48 PM EST Results can be seen in attached scanned documents. If you are a patient reviewing this test result, call the doctor who ordered the test with any questions. Authorizing ProviderResult TypeResult StatusShahriar Bravo APRN.CNPNEUROLOGY Final ResultPerforming OrganizationAddressCity/State/ZIP CodePhone Number [facility] [place] * OT-NM brain spect datscan IMPORT (01/29/2025)Anatomical RegionLaterality ModalityOtherSpecimen (Source)Anatomical Location / LateralityCollection Method / VolumeCollection TimeReceived Time01/29/2025 Narrative 02/02/2025 12:43 AM EDT Images were obtained outside of [facility] Procedure Note Provider, [facility] [place] - 02/02/2025 Images were obtained outside of [facility] Authorizing ProviderResult TypeResult StatusCcf ProviderRADIOLOGYFinal Result * SR-NM brain spect datscan IMPORT (01/29/2025)Anatomical RegionLaterality ModalityOtherSpecimen (Source)Anatomical Location / LateralityCollection Method / VolumeCollection TimeReceived Time01/29/2025 Narrative 01/31/2025 1:11 PM EDT Images were obtained outside of [facility] Procedure Note Provider, [facility] [place] - 01/31/2025 Images were obtained outside of [facility] Authorizing ProviderResult TypeResult StatusCcf ProviderRADIOLOGYFinal Result * EXTERNAL LAB (12/15/2024 10:49 AM EDT) Narrative Authorizing ProviderResult TypeResult StatusExternal Provider PA-CLABORATORY Final Result * ACETYLCHOLINE REC BINDING AB (12/15/2024 8:46 AM EDT)ComponentValueRef Range Test MethodAnalysis TimePerformed AtPathologist SignatureAcetylcholine, Binding, MkgzZgaojjhiJfiubfsb96/27/2025 2:57 PM EDTCTRUMBULL MEMORIAL [facility]OS[facility] LABComment:Anti-acetylcholine receptor binding antibody test is used as an aid in diagnosis of myasthenia gravis. A negative result cannot exclude myasthenia gravis. Clinical correlation is required.Acetylcholine Receptor Binding<0.02<0.21 nmol/L12/16/2024 2:57 PM EDTCTRUMBULL MEMORIAL HOSPITAL LAB Specimen (Source)Anatomical Location / LateralityCollection Method / Volume Collection TimeReceived TimeBloodBLOOD SPECIMEN / UnknownVenipuncture / Mmarbog9912/15/2024 8:46 AM EDT12/15/2024 8:46 AM EDT Narrative Authorizing ProviderResult TypeResult StatusKatdeshaun Bravo REMOTE SENSING RESEARCH SCIENTIST.CNPLABORATORY Final ResultPerforming OrganizationAddressCity/State/ZIP CodePhone Number [facility] [address] [place] [address], * CBC (03/10/2021 12:30 PM EST)ComponentValueRef RangeTest MethodAnalysis Time Performed AtPathologist SignatureWBC6.713.70 - 11.00 k/uL03/10/2021 1:13 PM ESTMiami [facility] Hospital LaboratoriesRBC4.964.20 - 6.00 m/uL03/10/2021 1:13 PM EST [facility] DpnntoctswzzDeswnzxfjq69.213.0 - 17.0 g/dL03/10/2021 1:13 PM [facility] CenterHematocrit41.239.0 - 51.0 %03/10/2021 1:13 PM ESTBrecksville Va / Crille HospitalMCV83.180.0 - 100.0 fL03/10/2021 1:13 PM EST [facility] HospitalMCH26.626.0 - 34.0 pG03/10/2021 1:13 PM EST [facility] HospitalMCHC32.030.5 - 36.0 g/dL03/10/2021 1:13 PM EST [facility] LaboratoriesRDW-CV14.611.5 - 15.0 %03/10/2021 1:13 PM EST [facility] LaboratoriesPlatelet Hpizv277004 - 400 k/uL03/10/2021 1:13 PM [facility] GtfgjrzwvpdnVVX82.19.0 - 12.7 fL03/10/2021 1:13 PM EST [facility] LaboratoriesAbsolute nRBC<0.01<0.01 k/uL03/10/2021 1:13 PM [facility] LaboratoriesSpecimen (Source)Anatomical Location / LateralityCollection Method / VolumeCollection TimeReceived TimeWHOLE BLOOD SPECIMEN / Fgsfshp9603/10/2021 12:30 PM EST03/10/2021 1:02 PM EST Narrative Authorizing ProviderResult TypeResult StatusClaire Luis Briones MDLABORATORY Final ResultPerforming OrganizationAddressCity/State/ZIP CodePhone Number [facility] [address] [place] [address] [facility] [address] [place] [address] * (ABNORMAL) BASIC METABOLIC PNL (03/10/2021 12:30 PM EST)ComponentValueRef RangeTest MethodAnalysis TimePerformed AtPathologist YjhvsnayaPxuvkis6500 - 99 mg/dL03/10/2021 1:26 PM [facility] CenterComment: The [place] Diabetes Association (ADA) provides guidance for cutoff values for fasting glucose and random glucose. The ADA defines fasting as no caloric intake for at least 8 hours. Fasting plasma glucose results between 100 to 125 mg/dL indicate increased risk for diabetes (prediabetes). Fasting plasma glucose results greater than or equal to 126 mg/dL meet the criteria for diagnosis of diabetes. In the absence of unequivocal hyperglycemia, results should be confirmed by repeat testing. In a patient with classic symptoms of hyperglycemia or hyperglycemic crisis, random plasma glucose results greater than or equal to 200 mg/dL meet the criteria for diagnosis of diabetes. Reference: Standards of Medical Care in Diabetes 2016, [place] [employer] Association. Diabetes Care. 2016.39(Suppl 1). AJG117 - 24 mg/dL03/10/2021 1:26 PM [facility] LaboratoriesCreatinine 1.40(H)0.73 - 1.22 mg/dL03/10/2021 1:26 PM ESTMiami [facility] Hospital Laboratories Bkpuzq687989 - 144 mmol/L105/10/2020 1:26 PM ESTMiami Valley Hospital Laboratories Potassium4.03.7 - 5.1 mmol/L105/10/2020 1:26 PM ESTMiami Valley Hospital Laboratories Ujespsme10061 - 105 mmol/L105/10/2020 1:26 PM ESTKindred Hospital [facility]vel[facility] LaboratoriesCO2 2322 - 30 mmol/L105/10/2020 1:26 PM ESTMiami Valley Hospital LaboratoriesAnion Qxc794 - 18 mmol/L105/10/2020 1:26 PM [facility] LaboratoriesCalcium7.9(L)8.5 - 10.2 mg/dL03/10/2021 1:26 PM [facility] LaboratorieseGFR->6003/10/2021 1:26 PM [facility] LaboratoriesComment: Note: On 06/17/2021, the eGFR calculation will be updated to the NKF-ASN Task Force recommended 2020 CKD-EPI creatinine equation which does not include a race variable. For more information or to access a 2020 CKD-EPI calculator, visit the National Kidney Foundation website at kidney.org/professionals/kdoqi/gfr_calculator. eGFR-All Other Races51.03/10/2021 1:26 PM [facility] Comment: eGFR (Estimated GFR) Units of measure: mL/min/1.73 meters squared eGFR is derived from the reexpressed MDRD Study equation using the following parameters: serum creatinine, age, gender and race. The creatinine assay has been calibrated to be traceable to IDMS. An eGFR <60 mL/min/1.73m2 for >3 months is consistent with chronic kidney disease. Refer to KDOQI guidelines for clinical interpretation. In patients with unstable renal function, e.g. those with acute kidney injury, the eGFR may not accurately reflect actual GFR. Note: On 06/17/2021, the eGFR calculation will be updated to the NKF-ASN Task Force recommended 2020 CKD-EPI creatinine equation which does not include a race variable. For more information or to access a 2020 CKD-EPI calculator, visit the National Kidney Foundation website at kidney.org/professionals/kdoqi/gfr_calculator. Specimen (Source)Anatomical Location / LateralityCollection Method / Volume Collection TimeReceived TimeOTHER / Foocleg1303/10/2021 12:30 PM EST03/10/2021 1:02 PM EST Narrative Authorizing ProviderResult TypeResult StatusClairlefty Briones MDLABORATORY Final ResultPerforming OrganizationAddressCity/State/ZIP CodePhone Number [facility] [address] [place] [address] [facility] [address] [place] [address] from Last 3 Months or Most Recently Relevant to Health Maintenance Insurance Care Teams Team MemberRelationshipSpecialtyStart DateEnd Radha Newton MD [address] [place] [phone] PCP - GeneralFamily Medicine10/09/17 Elian Ceballos MD [address] [place] [address] Primary Staff PhysicianCardiology12/01/20 Herminia Roland MD [address] [place] [address] Primary Staff GkdoekhacJpsxmusepc92/13/21
--- OUTSIDE RECORDS SUMMARY | 2025-03-15 09:22 | XMS_ITS | Encounter Summary ---
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 Helper Name Role Phone Radha Newton MD Primary Care Provider [phone] Elian Ceballos MD Unavailable Herminia Roland MD Unavailable [phone] Source Comments In the event this information is protected by the Federal Confidentiality of Alcohol and Drug AbusePatient Records regulations: The Federal rules restrict any use of the information to criminally investigate or prosecute any alcohol or drug abuse patient.[facility] Encounter Details DateTypeDepartmentCare Team (Latest Contact Info)Qcqypuqixrc64/21/2025 Get Medical Advice Neurology [address] [place] [address] Shahriar Bravo, CLEANER OPERATOR.RAND BUTTING MACHINE OPERATOR [address] [place] [address] EMG Social History Tobacco UseTypesPacks/DayYears UsedDateSmoking Tobacco: HgglphZiqyijckau045 09/12/1968 - 09/13/1983Smokeless Tobacco: NeverAlcohol UseStandard Drinks/Week CommentsYes0 (1 standard drink = 0.6 oz pure alcohol)1 beer once a monthPHQ-2 AnswerDate RecordedPHQ-2 [id number] Deprivation IndexAnswerDate RecordedNational Score (1-100), lower number is lower obsq355609/13/2022State Score (1-10), lower number is lower [id number] from: https://www.neighborhoodatlas.[facility]/. Last address used for [id number] [facility] [facility] Sex and Gender InformationValueDate RecordedSex Assigned at BirthNot on fileLegal FkrAqss71/02/2012 9:35 AM EST Gender IdentityNot on fileSexual OrientationNot on filedocumented as of this encounter Functional Status * Are you deaf or do you have serious difficulty hearing?AnswerDate of ZqkpobhvovWwpyqqMo65/26/2021 12:20 PM Kathie Schwab APRN.RAND BUTTING MACHINE OPERATOR * Are you blind or do you have serious difficulty seeing, even when wearing glasses?AnswerDate of BfmvxmotmeIxlutaAk96/26/2021 12:20 PM Kathie Schwab APRN.RAND BUTTING MACHINE OPERATOR * Do you have serious difficulty walking or climbing stairs?AnswerDate of BgawlvrayiLusmukFo65/26/2021 12:20 PM Kathie Schwab APRN.RAND BUTTING MACHINE OPERATOR * Do you have difficulty dressing or bathing?AnswerDate of AssessmentAuthorNo 12/15/2020 12:20 PM Kathie Schwab APRN.RAND BUTTING MACHINE OPERATOR * Because of a physical, mental, or emotional condition, do you have difficulty doing errands alone such as visiting a doctor's office or shopping?AnswerDate of UvpnvcetmsRewunlCl27/26/2021 12:20 PM Kathie Schwab APRN.RAND BUTTING MACHINE OPERATOR documented as of this encounter Mental Status * Because of a physical, mental, or emotional condition, do you have serious difficulty concentrating, remembering, or making decisions?AnswerEntry Date QvpjelJh49/26/2021 12:20 PM Kathie Schwab APRN.RAND BUTTING MACHINE OPERATOR documented in this encounter Plan of Treatment DateTypeDepartmentCare Team (Latest Contact Info)Nsxgjxuqmzv51/18/2026 11:30 AM ESTOffice Visit Neurological [facility] [address] [facility] [place] [address] Zev Hudson MD [address] [place], [place] [id number] Parkinson'sdocumented as of this encounter Visit Diagnoses Not on filedocumented in this encounter Care Teams Team MemberRelationshipSpecialtyStart DateEnd Date Radha Newton MD [address] [place] [address] PCP - GeneralFamily Medicine10/09/17 Elian Ceballos MD [address] [facility] [place] [address] Primary Staff PhysicianCardiology12/01/20 Herminia Roland MD [address] [facility] [place] [address] Primary Staff NyzxkfpdiUspgibpxfx03/13/21documented as of this encounter
--- OUTSIDE RECORDS SUMMARY | 2025-03-15 09:25 | XMS_ITS | Clinical Summary ---
Author Organization [facility] Healthcare Address [address] [place] [address] Care Team Providers Care Watch Dial Stoner Name Role Phone Radha Newton MD Primary Care Provider [phone] Abdirahman Pina DO Unavailable [phone] Allergies Active AllergyReactionsCriticalityNoted DateCommentsDofetilideDizziness,Unknown 08/24/2021 Unable to speak aphasia Aphasia, dizzy, muscle cramps PenicillinsUnknown,Other09/12/2000 As a child VancomycinAnaphylaxis,Itching,UnnkIzus00/16/2022 Itching hands/feet Medications MedicationSigDispense QuantityRefillsLast FilledStart DateEnd DateStatus calcium carbonate (Os-Atilio) 1250 (500 Ca) MG chewable tablet Chew 1 tablet in the morning.Active sotalol (Betapace) 120 MG tablet 4Active pramipexole (Mirapex) 1 MG tablet Indications:Restless legTake 1 tablet (1 mg) by mouth at bedtime 90 tablet 506Active nitroglycerin (Nitrostat) 0.4 MG SL tablet Indications:Atypical anginaDISSOLVE ONE TABLET UNDER THE TONGUE EVERY 5 MINUTES NEEDED FOR CHEST PAIN. 75 tablet 5Active midodrine (Proamatine) 5 MG tablet Take 5 mg by mouth in the morning and 5 mg in the evening and 5 mg before bedtime.Active magnesium lactate CR (Magtab) 84 MG (7MEQ) ER tablet Take 84 mg by mouth DailyActive levothyroxine (Synthroid, Levoxyl) 150 MCG tablet Indications:Acquired hypothyroidismTAKE 1 TABLET BY MOUTH FOUR TIMES A WEEK TAKE ON AN EMPTY STOMACH 48 tablet 5Active ergocalciferol (Vitamin D2) 1.25 MG (93819 UT) capsule Indications:HypocalcemiaTake 1 capsule by mouth once a week 12 capsule 5Active levothyroxine (Synthroid) 175 MCG tablet Indications:Acquired hypothyroidismTake 1 tablet (175 mcg) by mouth 3 (three) times a week Take on an empty stomach 36 tablet 5Active calcitriol (Rocaltrol) 0.25 MCG capsule Indications:HypocalcemiaTake 1 capsule by mouth once daily 90 capsule 5Active droxidopa (Northera) 100 MG capsule Take 100 mg by mouth in the morning and 100 mg at noon and 100 mg in the evening.5Active Active Problems ProblemNoted DateDiagnosed DateHistory of excision of intestinal structure 01/14/2025POTS (postural orthostatic tachycardia syndrome)01/27/2024neurysm of ascending aorta without abumqwx5307/18/2023Syncope and hnqajoeo16/28/2024Sick sinus fmsyzuaz68/26/2024cute blood loss iyndpj6305/21/2023araesophageal hernia 05/21/20230922Aumhdmd51/11/2023Bilateral partial vocal cord txgvqapjv38/11/2023 Muscle prxecn3101/30/2023H/O cardiac radiofrequency qoipazoo27/04/2023 Pyrkulsrurzpllo28/10/2023alculus of incvii6810/29/2022Injury of head10/29/2022 Tension uwybplxd77/10/2023resence of Watchman left atrial appendage closure uwtgml9410/19/2022 Overview (10/29/2022): Last Assessment & Plan: CHANTELLE from 04/10/2022 showing watchman implant in good position, no device leak noted and no thrombosis Fgacsax4010/01/2022etached retina, right10/01/2022uodenal thcfszluxirp31/12/2023 Pqqrkjqhd33/12/2023History of total zmyhxmudzxrva03/12/2023Hypoparathyroidism after zdxuyqmsz98/12/2023Idiopathic chronic gout of foot without tophus 10/01/2022Intractable chronic migraine without aura10/01/2022Nephrolithiasis 10/01/2022Osteoarthritis of left hand10/01/2022Other headache oqabcnqr65/12/2023 Trigger point with neck pain10/01/2022ain in right elbow10/01/2022aresthesia of bilateral legs10/01/2022SVT (supraventricular tachycardia)10/01/2022 Unspecified atrial xxjiirmiprus67/12/2023Seroma of circulatory system after non- circulatory system /12/2023Stage 3b chronic kidney wrkxtss7010/01/2022 Status post right knee ysmmhuhrwri54/12/2023Substernal yrrjqq2610/01/2022 Cjfbcpydknz82/12/2023Transient ischemic kchpyu5110/01/2022hronic migraine without aura, with intractable migraine, so stated, with status zlqzeajenjo25/09/2023 Benign prostatic hyperplasia with urinary zaruzukqrby38/10/2023Hydronephrosis 05/01/2022Low back pain05/01/2022Multifocal atrial /10/2023Nocturia 05/01/2022ost-void uyobsvpam29/10/2023History of anesthesia complications 04/25/2022cquired pfinzpnhdkxkrs95/15/2022 Overview (10/01/2022): Pt is on synthroid after removal of thyroid for goiter Assessment & Plan (01/14/2025 11:05 AM EDT): Knshiciffscjte70/15/2022 Overview (10/29/2022): Pt is on synthroid after removal of thyroid for goiter Implantable loop recorder /08/2022Recurrent falls02/05/2022 Pancreatitis, gallstone ([facility])02/05/2022Metabolic xeijpqjt69/14/2022 Idiopathic acute pancreatitis without infection or necrosis ([facility])01/02/2022 Calculus of buifzejwlsl74/13/6925Hjdbx09/12/2022History of kidney stones 01/01/2022History of peptic ulcer01/01/2022 Overview (10/01/2022): S/p egd at [facility] 08/2020 Formattingof this note might be different from the original. S/p egd at [facility] 08/2020 History of TIA (transient ischemic attack)01/01/20222076Uanmcyjqitwjf73/12/2022 Drubfnir30/12/2022Lactic acid seonecnm45/12/2022KI (acute kidney injury) 01/01/2022Non-intractable vomiting with wlquug5301/01/2022KD (chronic kidney disease) stage 3, GFR 30-59 ml/min01/01/2022cute pancreatitis ([facility]) 12/31/2021Gallstone pancreatitis ([facility]-HCC)12/31/2021aroxysmal atrial sfiwypfwaahp70/09/2022 Overview (10/01/2022): Added automatically from request for surgery [id number] Assessment & Plan (02/06/2024 10:46 AM EDT): Now back in sinus. Chest pain01/24/2021trial nfezkjvmgswy75/06/2021upraventricular tachycardia 12/26/2020rteriosclerosis of coronary nhebry8412/14/2020 Overview (10/01/2022): - reported 60% stenosis - further details unknown GERD (gastroesophageal reflux disease)12/14/2020 Overview (10/01/2022): - chronic - receiving home protonix, sucralfate Atrial gteopbh0612/14/2020 Overview (10/01/2022): - S/p CTI ablation 11/2019- [facility] awumfxahplzj28/25/2021 Overview (10/01/2022): - chronic, stable - continue home Benazepril, norvasc Thyroid bhhchrl2612/14/2020 Overview (10/01/2022): - chronic, stable - home replacement therapy continued TIA (transient ischemic attack)12/14/2020 Overview (10/01/2022): TIA 2017 - Patient with visual disturbances,m aphasia eveing of 12/13 and morning of 12/14-- 2CLOT activated - CT head 12/13/2020- no acute findings - EEG today, headache cocktail and brain MRI - Neurology following CAD (coronary artery disease)12/14/2020 Overview (10/29/2022): - reported 60% stenosis - further details unknown Meniere xcrchif8211/15/2020bnormal laboratory test ndjjfi3909/14/2020Vitamin B12 deficiency (non anemic)09/13/2020Vitamin B6 smskopxsmy46/25/2021typical angina 09/06/20205746Xyfpjveyoocdwk34/18/2021ngina at rest09/06/2020iverticulosis of small yblijymwg96/02/7729Mkwrqtxc72/19/6472Goiqcdugtqxkil38/09/2020OSA (obstructive sleep apnea)03/01/2020 Overview (10/01/2022): -chronic, on CPAP at home -stable - Continue CPAP while in hospital -chronic, on CPAP at home -stable -Continue CPAP while in hospital Vwjryibe75/10/2020Refractory migraine without aura11/10/2020Neck pain03/01/2020 Atypical wmjypfxk94/09/2020Expressive rmmjolf8801/23/2020Persistent atrial txputbfuvbdj43/24/2020 Overview (10/01/2022): - Chronic - stable - Known to Dr Stallings - S/p PVI 12/2019 ( [facility]) , [...] 0551 Estimated creatinine clearance: 68.2 mL/min (A) Tension type yciwcjit22/16/2020Atrial fhsotouhlw34/28/2020Esophageal dysmotility 11/21/2019 Overview (10/01/2022): - chronic - receiving home protonix, sucralfate Stage 3 chronic kidney zvcwzav3411/17/2019Skin sensation xvnyqrotbdw94/07/2020 Migraine without aura, not evwsxbfwsf00/25/2020Abnormal epprdddtkg82/10/2019 History of endocrine mvjjkhyg14/17/3196Dtbneavfhlvk88/12/2019Hypoparathyroidism 10/01/20189404Lsuabciuxr49/28/2019Shortness of qhkyid1209/16/2018Vocal cord palsy 09/16/20181822Kjhaeswvswr76/28/2019Difficulty swallowing xgkfbs7709/03/2018Left ventricular kgeqhmaxicy16/14/2019Disorder of autonomic nervous bawrjk7003/29/2018 Ocular lzpbwdfe53/28/2018Artificial knee joint ljqsiye2911/09/2017Serous retinal /21/2018 Overview (10/01/2022): Added automatically from request for surgery [id number] Added automatically from request for surgery [id number] Added automatically from request for surgery [id number] Added automatically from request for surgery [id number] Nuclear sclerotic cataract, left10/07/2017 Overview (10/01/2022): Added automatically from request for surgery [id number] Added automatically from request for surgery [id number] Added automatically from request for surgery [id number] Added automatically from request for surgery [id number] Total retinal detachment of left eye10/07/2017 Overview (10/01/2022): Added automatically from request for surgery [id number] Added automatically from request for surgery [id number] Added automatically from request for surgery [id number] Formatting of thi s note might be different from the original. Added automatically from request for surgery [id number] Retinal detachment, left10/07/2017 Overview (10/29/2022): Added automatically from request for surgery [id number] Gout05/20/2017Restless legs tvebivvk22/17/2017 Overview (10/01/2022): - chronic - continue home mirapex - chronic - continue home mirapex Vitamin D yigdajmkob50/17/2017Chronic gouty zdtbnboqz78/15/2016History of acute renal ywdvegu6402/04/2016Headache omyfijfg18/15/2016Arthralgia of upper arm 12/28/2015Localized, primary osteoarthritis of elbow08/28/2016Acute gastric ulcer06/23/2015Acute renal failure ttxsuxbe80/03/4553Foajzftqull03/03/2016 Essential xbykbjobplko21/06/2016 Overview (10/29/2022): Last Assessment & Plan: Hypertension is well controlled continue current med regime Resolved Problems ProblemNoted DateDiagnosed DateResolved DateAcquired absence of other specified parts of digestive tractNoninfective gastroenteritis and colitis, qhelhzgxtod82/03/202506/bnormal ECG/hronic kidney Overview (10/01/2022): stage 3 b - baseline Cr unknown CKD (chronic kidney disease) Overview (10/29/2022): - baseline Cr unknown Obstructive sleep apnea hrfrdgrx02HTN (hypertension)11/17/2019 06/09/2024Restless leg Overview (10/29/2022): - chronic - continue home mirapex - chronic - continue home mirapex Encounters DateTypeDepartmentCare UuewHlqqzbtrpxr24/31/2025Patient Outreach [facility] [address] [place] [address] Harleen Martinez, CARLOS 01/26/2025Refill [facility] [place] [facility] [address] [place] [address] Latoya Redding MD Doydmkxdwkyr85/25/2025 10:20 AM EDTOffice Visit [facility] [address] [place] [phone] Radha Newton MD Dizziness (Primary Dx); Pain in both lower extremities; Acquired /25/2025amboo flowsheet [place] [address] [facility] [place] [phone] Radha Newton MD 01/14/20259044Qdsygv54/22/2025[facility] Outreach [facility] [address] [place] [address] Harleen Martinez RN 01/07/20251423Hoaaak32/09/2025Refill [facility] [address] [place] [phone] Latoya Redding MD Yxbaledkuoee68/09/2025Refill [place] [address] [place] [phone] Andressa Alvares NP Acquired bhejtsyehaefgc39/08/2025Results Follow-Up [address] [place] [phone] Andressa Alvares NP Comprehensive metabolic panel, TSH W/REFLEX TO FT4, Magnesium, T4, free 12/25/2024 9:00 AM EDTOffice Visit [place] [address] [place] [phone] Andressa Alvares NP Muscle cramps (Primary Dx); Acquired hypothyroidism ; Hypocalcemia; Stage 3b chronic kidney disease ([facility]-HCC)12/25/2024amb flowsheet [place] [address] [place] [phone] Andressa Alvares NP 12/25/20244588Wepmev91/06/20248732Lgdxlj06/03/2025Patient Outreach [facility] [address] [place] [address] Harleen Martinez, RN 12/15/2024linisync Result Encounter [facility] External Department Unsolicited Provider, Generic External Data 12/15/2024Patient Outreach [facility] [address] [place] [address] Harleen Martinez, RN from Last 3 Months Immunizations ImmunizationAdministration DatesNext DueInfluenza, injectable, quadrivalent, preservative free01/28/2016Moderna SARS-CoV-2 Ipntixhtrff08/25/2021,06/16/2020 Tdap1 Family History Medical HistoryRelationNameCommentsNo Known ProblemsBrotherAneurysmFatherFred CancerFatherFredHypertensionFatherFredLung cancerFatherFredCancerMotherSue HypertensionMotherSueLung cancerMotherSueStrokeMotherSueRelationNameStatus CommentsBrotherDaughterAliveFatherFredDeceasedMotherSueDeceasedSonAlive Social History Tobacco UseTypesPacks/DayYears UsedDateSmoking Tobacco: FormerCigarettes1.514 04/22/1969 - 1983PipeCigarsSmokeless Tobacco: Never Tobacco Cessation:Counseling Given: Not Answered Comments:Last smoked:>20 years ago Alcohol UseStandard Drinks/WeekCommentsYes0 (1 standard drink = 0.6 oz pure alcohol)Caffeine intake: 1 cups per day of qdsaazN5673 Health LiteracyAnswerDate RecordedHow often do you need to have someone help you when you read instructions, pamphlets, or other written material from your doctor or pharmacy? Never12/17/2023Humiliation, Afraid, Rape, and Kick questionnaireAnswerDate RecordedWithin the last year, have you been afraid of your partner or ex-partner?No10/01/2022Within the last year, have you been humiliated or emotionally abused in other ways by your partner or ex-partner?No10/01/2022 Within the last year, have you been kicked, hit, slapped, or otherwise physically hurt by your partner or ex-partner?No10/01/2022Within the last year, have you been raped or forced to have any kind of sexual activity by your part ner or ex-partner?No10/01/2022Social Connection and Isolation PanelAnswerDate RecordedIn a typical week, how many times do you talk on the phone with family, friends, or neighbors?More than three times a week12/17/2023How often do you get together with friends or relatives?More than three times a week12/17/2023How often do you attend anabaptist or rastafarian services?Never12/17/2023o you belong to any clubs or organizations such as anabaptist groups, unions, fratok tok tok or athletic groups, or school groups?No12/17/2023How often do you attend meetings of the clubs or organizations you belong to?Never12/17/2023re you , , , , never , or living with a partner?Ettwnua7012/17/2023 AUDIT-CAnswerDate RecordedQ1: How often do you have a drink containing alcohol? Monthly or less12/17/2023Q2: How many drinks containing alcohol do you have on a typical day when you are drinking?1 or Q3: How often do you have six or more drinks on one occasion?Never12/17/2023Overall Financial Resource Strain (CARDIA)AnswerDate RecordedHow hard is it for you to pay for the very basics like food, housing, medical care, and heating?Not very hard12/17/2023HQ-2Answer Date RecordedPatient Health Questionnaire-2 [facility]rp048[facility] [place] [facility] - Occupational Stress QuestionnaireAnswerDate RecordedDo you feel stress - tense, restless, nervous, or anxious, or unable to sleep at night because yourmind is troubled all the time - these days?Patient declined 12/17/2023Exercise Vital SignAnswerDate RecordedOn average, how many days per week do you engage in moderate to strenuous exercise (like a brisk walk)?7 days 12/17/2023On average, how many minutes do you engage in exercise at this level? 30 min12/17/2023Hunger Vital SignAnswerDate RecordedWithin the past 12 months, you worried that your food would run out before you got the money to buymore. Never true12/17/2023Within the past 12 months, the food you bought just didn't last and you didn't have money to get more.Never true12/17/2023RAPARE - TransportationAnswerDate RecordedIn the past 12 months, has lack of transportation kept you from medical appointments or from getting medications?No 12/17/2023In the past 12 months, has lack of transportation kept you from meetings, work, or from getting things needed for daily living?No12/17/2023 Housing Stability Vital SignAnswerDate RecordedIn the last 12 months, was there a time when you were not able to pay the mortgage or rent on time?No10/01/2022In the last 12 months, how many places have you lived?In the last 12 months, was there a time when you did not have a steady place to sleep or slept in [place] (including now)?No10/01/2022Housing Stability Vital SignAnswerDate RecordedIn the last 12 months, was there a time when you were not able to pay the mortgage or rent on time?No12/17/2023Number of Times Moved in the Last Year Not on file12/17/2023t any time in the past 12 months, were you homeless or living in a [facility] (including now)?No12/17/2023Sex and Gender InformationValue Date RecordedSex Assigned at BirthNot on fileLegal TnuTaig1807/04/2022 7:10 PM EDT Gender ToghbjvaCvbs83/15/2023 7:10 PM EDTSexual OrientationNot on file Last Filed Vital Signs Vital SignReadingTime TakenCommentsBlood Ltnjfrnl512/80001/14/2025 10:13 AM EDT Nyurf5241/25/2025 10:13 AM XLJSghnmgfozia94.2 ??C (98.9 ??F)09/02/2024 2:53 PM EDTRespiratory Ggjb996508/10/2024 9:48 AM EDTOxygen Ocdneqnclj57%01/14/2025 10:13 AM EDTInhaled Oxygen Concentration--Ydftgf040 kg (261 lb 6.4 oz)01/14/2025 10:13 AM SEVMldsld755.1 cm (6' 6 )01/14/2025 10:13 AM EDTBody Mass Index30.21 01/14/2025 10:13 AM EDT Plan of Treatment Health MaintenanceDue DateLast DoneCommentsCT Ejlggchvqizg93/30/1954FIT-DNA 1953FIT1955FOBT1953 6019Vkyvqqxhcgzlj14/30/1954OVID-19 Vaccine ( season), 07/15/2020, 07/14/2020, Additional history existsPneumococcal Vaccine: 65+ Years (1 of 2 - PCV)06/04/2025Postponed from 1972 (Patient Refused)Influenza Vaccine (#1)/11/2015 Postponed from 12/21/2024 (Patient Refused)Dqlzxlprnev93/27/63728805/18/2023, 04/16/2023, 04/16/2023olorectal Cancer Nfywgncao16/27/2034 Procedures Procedure NamePriorityDate/TimeAssociated DiagnosisCommentsT4, FREERoutine 12/25/2024 9:22 AM EDT PBCNKPVPIVeufttg01/05/2025 9:22 AM EDT Muscle cramps TSH W/REFLEX TO PS8Eomtpdl45/05/2025 9:22 AM EDT Muscle cramps Acquired hypothyroidism COMPREHENSIVE METABOLIC PEBUAWlxmasq51/05/2025 9:22 AM EDT Muscle cramps Hypocalcemia Stage 3b chronic kidney disease ([facility]-H[facility]) [facility] ACETYLCHOLINE REC BINDING JYTaddonu90/26/2025 8:46 AM EDT HM GTBQSCJINBBKeswkxc51/27/2024 7:01 PM ESTfrom Last 3 Months or Most Recently Relevant to Health Maintenance Results * (ABNORMAL) TSH W/REFLEX TO FT4 (12/25/2024 9:22 AM EDT)ComponentValueRef Range Test MethodAnalysis TimePerformed AtPathologist SignatureTSH W/REFLEX TO FT4 4.51(H)0.40 - 4.50 mIU/LQUESTSpecimen (Source)Anatomical Location / Laterality Collection Method / VolumeCollection TimeReceived Time12/25/2024 9:22 AM EDT 12/25/2024 3:54 PM EDT Narrative Resulting Agency Comment Performing Organization Information ?Site ID: QPT ?Name: [employer] [facility] ?Address: [address] [place] [address], [address] [place] [address] ?Director: Janes Vasquez MD Authorizing ProviderResult TypeResult StatusSacincinnati [facility] NPLAB BLOOD ORDERABLES Final ResultPerforming OrganizationAddPenn Presbyterian Medical Centerty/[facility] CodePhone Number [facility] * T4, free (12/25/2024 9:22 AM EDT)ComponentValueRef RangeTest MethodAnalysis TimePerformed AtPathologist SignatureT4, FREE1.50.8 - 1.8 ng/dLQUESTSpecimen (Source)Anatomical Location / LateralityCollection Method / VolumeCollection TimeReceived Time12/25/2024 9:22 AM EDT12/25/2024 3:54 PM EDT Narrative Resulting Agency Comment Performing Organization Information ?Site ID: QPT ?Name: [employer] [facility] ?Address: [address] [place] [address], [address] [place] [address] ?Director: Janes Vasquez MD Authorizing ProviderResult TypeResult StatusSara Rockpfer NPLAB BLOOD ORDERABLES Final ResultPerforming OrganizationAddressty/State/ZIP CodePhone Number [facility] * Magnesium (12/25/2024 9:22 AM EDT)ComponentValueRef RangeTest MethodAnalysis TimePerformed AtPathologist SignatureMAGNESIUM2.31.5 - 2.5 mg/dLQUESTSpecimen (Source)Anatomical Location / LateralityCollection Method / VolumeCollection TimeReceived TimeBloodVenous blood specimen / Nhofqad1512/25/2024 9:22 AM EDT 12/25/2024 3:54 PM EDT Narrative Resulting Agency Comment Performing Organization Information ?Site ID: QTW ?Name: [facility] ?Address: [address] [place] [id number] ?Director: Darline Flores Authorizing ProviderResult TypeResult StatusSaSt. Francis Hospital & [facility] BLOOD ORDERABLES Final ResultPerforming OrganizationAddressCity/State/ZIP CodePhone Number [facility] * (ABNORMAL) Comprehensive metabolic panel (12/25/2024 9:22 AM EDT)Component ValueRef RangeTest MethodAnalysis TimePerformed AtPathologist SignatureGlucose 9565 - 99 mg/dLQUESTComment: ? Fasting reference interval BUN27(H)7 - 25 mg/dLQUESTCreatinine1.230.70 - 1.28 mg/cUCAWMPGQCG95> OR = 60 mL/min/1.74v7RNBRDFYV/CREATININE EGDCC318 - 22 (calc)ECDWYJyamug232690 - 146 mmol/LQUESTPotassium, Bld4.93.5 - 5.3 mmol/LOCQTQKhztdwxa22405 - 110 mmol/LQUEST Carbon Wugxjkf2740 - 32 mmol/LQUESTCalcium8.88.6 - 10.3 mg/dLQUESTPROTEIN, TOTAL 7.36.1 - 8.1 g/dLQUESTALBUMIN4.53.6 - 5.1 g/dLQUESTGLOBULIN2.81.9 - 3.7 g/dL (calc)QUESTALBUMIN/GLOBULIN RATIO1.61.0 - 2.5 (calc)QUESTBILIRUBIN, TOTAL0.70.2 - 1.2 mg/dLQUESTALKALINE BHIZFWJLVMN1489 - 144 U/ITJHJIJMN4916 - 35 U/LQUESTALT 389 - 46 U/LQUESTSpecimen (Source)Anatomical Location / LateralityCollection Method / VolumeCollection TimeReceived TimeBloodVenous blood specimen / Unknown 12/25/2024 9:22 AM EDT12/25/2024 3:54 PM EDT Narrative Resulting Agency Comment Performing Organization Information ?Site ID: QTW ?Name: [facility] ?Address: [address] [place] [phone] ?Director: Darline Flores Authorizing ProviderResult TypeResult StatusSarah Kampfer [facility] BLOOD ORDERABLES Final ResultPerforming OrganizationAddressCity/State/ZIP CodePhone Number [facility]ST * [facility] ACETYLCHOLINE REC BINDING AB (12/15/2024 8:46 AM EDT)ComponentValueRef RangeTest MethodAnalysis TimePerformed AtPathologist SignatureCCF ACETYLCHOLINE BINDING, QUALNegativeNegativeCCFComment:Anti-acetylcholine receptor binding antibody test is used as an aid in diagnosis of myasthenia gravis. A negative result cannot exclude myasthenia gravis. Clinical correlation is required.[facility] ACHR BIND AB SER-SCNC<0.02<0.21 nmol/LCCFSpecimen (Source)Anatomical Location / LateralityCollection Method / VolumeCollection TimeReceived Time12/15/2024 8:46 AM EDT12/15/2024 4:45 PM EDT Narrative CLIN[facility]NC - 12/16/2024 2:57 PM EDT Specimen Type: BLOOD SPECIMEN Ordering Facility: [facility] ?Address: [address] [place] [address] Original Ordering Provider: ABBY BERNSTEIN Authorizing ProviderResult TypeResult StatusGeneric External Data Provider CLINISYNCFinal ResultPerforming OrganizationAddressCity/State/ZIP CodePhone Number CLINISYNC [address] [place] [phone] * (ABNORMAL) Colonoscopy (03/18/2024 7:01 PM EST)Anatomical RegionLaterality ModalityOther Narrative Authorizing ProviderResult TypeResult StatusRadha Newton MDHEALTH MAINTENANCE Final Result from Last 3 Months or Most Recently Relevant to Health Maintenance Insurance Care Teams Team MemberRelationshipSpecialtyStart DateEnd Date Radha Newton MD [address] [place] [address] PCP - GeneralFamily Medicine09/20/22 Abdirahman Pina DO [address] [facility] [address] [place] [address] Referring PhysicianNeurology06/22/24
--- OUTSIDE RECORDS SUMMARY | 2025-03-15 09:25 | XMS_ITS | Patient Health Record ---
Author Organization [facility] in [place] Address [address] [place] [address] Care Team Providers Care Threat Analyst Name Role Phone Radha Newton MD Primary Care Provider Michelle Leon Unavailable [phone] Provider, KODY Unavailable [phone] Roro Mclean Unavailable Allergies Allergen (clinical drug ingredient) Drug/Non Drug Allergy documented on EMR Reaction Allergy Type Onset Date Status dofetilide Tikosyn rash Drug Allergy ActivePenicillinUnknownDrug AllergyActivevancomycinVancomycinrashDrug Allergy Active Results Component Value Reference Range Notes Surgical Path (TTC) Reviewed date:03/27/2024 09:04:14 AM Interpretation: Performing Lab:[facility], [address] , [place], [address] PH:[phone] Notes/Report: Case #: [id number] Specimen(s) Received: A. Colon, Random Biopsy B. Cecum, Polyp(s) Clinical Information: One 4 mm polyp in the cecum, removed with a cold snare. Resected and retrieved. Final Diagnosis: A. Colon, Random Biopsy: Fragments of benign colonic mucosa showing no significant histopathologic abnormality. No significant inflammation, microscopic colitis, or dysplasia is identified. B. Cecum, Polyp(s): Fragments of adenomatous polyp, tubular type. Report Electronically Signed Out Zainab Spaulding MD , Pathologist (Case signed 03/26/2024 at 13:16) Gross Description: A. Received in formalin with two patient identifiers are multiple soft fragments of pink-martin tissue aggregated to 0.8 x 0.5 x 0.2 cm. The entire specimen is submitted as received in one cassette. NATALIA B. Received in formalin with two patient identifiers are two soft fragments of pink-martin tissue aggregated to 0.9 x 0.6 x 0.3 cm. The entire specimen is submitted as received in one cassette. NATALIA Microscopic Findings: A. Sections (1 H&E stained slide, including levels) show fragments of colonic mucosa consisting of tubular shaped crypts without significant histopathologic abnormality. There is no significant inflammation or features to suggest microscopic colitis, including no thickening of the subepithelial collagen layer or increase in numbers of intraepithelial lymphocytes. There is no dysplasia identified. B. Sections (1 H&E stained slide with levels) show fragments and polypoid portions of colonic mucosa with some showing areas of adenomatous change demonstrated by nuclear hyperchromasia with nuclear pseudostratification within tubular shaped crypts. Colonoscopy* Reviewed date:03/18/2024 05:22:50 PM Interpretation: Performing Lab: Notes/Report: Reason For Referral No Information Medications Medication SIG (Take, Route, Frequency, Duration) Notes Start Date End Date Status PROzac 20 MG 1 capsule Orally Once a day ActiveCholestyramine 4 GM1 packet mixed with water or non-carbonated drink Orally Once a day; Duration: 30 day(s)4ActiveSotalol HCl 80 MG1 tablet Orally every 12 hrsActiveCalcium 500 MG1 tablet with meals Orally Twice a day ActiveSynthroid 150 MCG1 tablet in the morning on an empty stomach Orally Once a dayActive Social History Tobacco Use: Social History Observation Description Date Details (start date - stop date) Former Smoker NA - NA Tobacco Control (Standard) Question Answer Notes Tobacco use: Former smoker How long has it been since you last smoked?Greater than 10 years Problems Problem Type SNOMED Code ICD Code Onset Dates Problem Status W/U Status Risk Notes Problem Atrial fibrillation (81960650) Unspecifie d atrial fibrillation (I48.91) ActiveconfirmedProblemNon-infective enteritis and colitis (374665237) Noninfective gastroenteritis and colitis, unspecified (K52.9)Activeconfirmed colonoscopy on 03/18/2024 which showed medium mouth diverticula sigmoid and descending colon. A 4 mm tubular adenomatous polyp in the cecum. Inadequate 2 day prep. Repeat colonoscopy was suggested in3 years. 2-3 day clear liquid diet with a 2 day prep is recommended for future colonoscopies.colonoscopy in March of 2023 which showed 1 cm sessile serrated adenomatous polyp in the ascending colon. The prep was inadequate. Random colon biopsies were done to rule out microscopic colitis which was suggestive of evolving/resolving lymphocytic colitis.ProblemHistory of excision of intestinal structure (622679714)Acquired absence of other specified parts of digestive tract (Z90.49) ActiveconfirmedProblemHypothyroid (23752518)Hypothyroid (E03.9)Activeconfirmed ProblemHistory of polyp of colon (situation) (862465857)Personal history of colon polyps, unspecified (Z86.0100)Activeconfirmedcolonoscopy on 03/18/2024 which showed medium mouth diverticula sigmoid and descending colon. A 4 mm tubular adenomatous polyp in the cecum. Inadequate 2 day prep. Repeat colonoscopy was suggested in3 years. 2-3 day clear liquid diet with a 2 day prep is recommended for future colonoscopies.colonoscopy in March of 2023 which showed 1 cm sessile serrated adenomatous polyp in the ascending colon. The prep was inadequate. Random colon biopsies were done to rule out microscopic colitis which was suggestive of evolving/resolving lymphocytic colitis. Vital Signs Heart Rate 90 /min 04/08/2024 Blood pressure lmjtiwhcu36 mm Hg04/08/20242698Zbajlp58 in04/08/2024lood pressure zitlxtas630 mm Hg04/08/20242423Rcxnui947 lbs106/09/2023BMI28.54 kg/m204/08/2024 Encounters Encounter Location Date Provider Diagnosis [facility] [place] [address] [place] [address] 05/01/2024 [facility] G[facility]ology [address] [place] [address] 03/17/2024[facility] [address] [place] [address]/05/2024[facility] [id number] [place] [address]/[facility] [id number] [place] [address]/S[facility] [address] [place] [address]/Stephanie Bohland-FanfulikNoninfective gastroenteritis and colitis, unspecified K52.9 ; Personal history of colon polyps, unspecified Z86.0100 ; Acquired absence of other specified parts of digestive tract Z90.49 and Unspecified atrial fibrillation I48.91 Assessments Encounter Date Diagnosis (ICD Code) Assessment Notes Treatment Notes Treatment Clinical Notes Section Notes 04/08/2024 Noninfective gastroenteritis and colitis, unspecified (ICD-10 - K52.9) colonoscopy on 03/18/2024 which showed medium mouth diverticula sigmoid and descending colon. A 4 mm tubular adenomatous polyp in the cecum. Inadequate 2 day prep. Repeat colonoscopy was suggested in 3 years. 2-3 day clear liquid diet with a 2 day prep is recommended for future colonoscopies.colonoscopy in March of 2023 which showed 1 cm sessile serrated adenomatous polyp in the ascending colon. The prep was inadequate. Random colon biopsies were done to rule out microscopic colitis which was suggestive of evolving/resolving lymphocytic colitis. Due to his inadequate prep with the last 2 colonoscopies I believe this is overflow diarrhea. I advised the Pt. to start taking 1 capful of MiraLax daily to regulate his bowel movements. I advised the Pt. has stopped taking the cholestyramine. I advised the Pt. to call if his symptoms do not improve. 04/08/2024ersonal history of colon polyps, unspecified (ICD-10 - Z86.0100) colonoscopy on 03/18/2024 which showed medium mouth diverticula sigmoid and descending colon. A 4 mm tubular adenomatous polyp in the cecum. Inadequate 2 day prep. Repeat colonoscopy was suggested in3 years. 2-3 day clear liquid diet with a 2 day prep is recommended for future colonoscopies.colonoscopy in March of 2023 which showed 1 cm sessile serrated adenomatous polyp in the ascending colon. The prep was inadequate. Random colon biopsies were done to rule out microscopic colitis which was suggestive of evolving/resolving lymphocytic colitis.Repeat colonoscopy in 3 years with 2-3 days of a clear liquid diet, and a 2 day prep due to personal history colon polyps and inadequate prep.04/08/2024cquired absence of other specified parts of digestive tract (ICD-10 - Z90.49)04/08/2024Unspecified atrial fibrillation (ICD-10 - I48.91) Plan Of Treatment Pending Test Test Name Order Date Colonoscopy 02/17/2024 CRYPTOSPORIDIUM, STOOL 02/17/2024 CULTURE, STOOL 02/17/2024 GIARDIA, STOOL 02/17/2024 OVA and PARASITES (O and P STOOL) 2023 C DIFF TOX/GDH W REFLEX TO CD-PCR 2023 Insurance Providers Payer Name Payer Address Payer Phone Subscriber Number Group Number Insured Name Patient Relationship to Insured Coverage Start Date Coverage End Date [place] [address] [place] [address] [id number] Jigar Arnold Jr - patient is the insuredOP[address] [place], [place] [id number] Jr, FredrickSelf - patient is the insured Medical (General) History Medical History History ICD Code Chronic kidney disease, stage 3 (moderat e) N18.3 Hypothyroid E03.9 Afib 427.31 Surgical History Surgery Date(Month/Year) hiatal hernia right knee replacementleft knee replacementCHOLECYSTECTOMYPACEMAKERscrews in neckcardiac ablation k8hsbcstcskmfml, completeHospitalization History Reason Date(Month/Year) [facility] 01/2024
--- OUTSIDE RECORDS SUMMARY | 2025-03-15 09:25 | XMS_ITS | Clinical Summary ---
Author Organization [facility] Address [address], [address] [place] [address] Care Team Providers Care Social Human Services Assistants Name Role Phone Radha Torres MD Primary Care Pr ovider Allergies Active AllergyReactionsCriticalityNoted YqthFfhfcnkqAsqalmsbyk02/05/2022 Unable to speak Tpupznvsakg11/11/2022 Medications MedicationSigDispense QuantityRefillsLast FilledStart DateEnd DateStatus levothyroxine (SYNTHROID) 150 MCG tablet Take 150 mcg by mouth dailyActive apixaban (ELIQUIS) 5 MG TABS tablet Take 5 mg by mouth 2 times dailyActive pramipexole (MIRAPEX) 1 MG tablet Take 2 mg by mouth dailyActive vitamin B-12 (CYANOCOBALAMIN) 1000 MCG tablet Take 1.25 mcg by mouth once a week SaturdayActive dilTIAZem (CARDIZEM CD) 120 MG extended release capsule Take 1 capsule by mouth daily 30 capsule ctive ondansetron (ZOFRAN) 4 MG tablet Take 1 tablet by mouth daily as needed for Nausea or Vomiting 30 tablet 01/05/2022ctive febuxostat (ULORIC) 40 MG TABS tablet Take 40 mg by mouth daily01/05/2022iscontinued(Stop Taking at Discharge) benazepril (LOTENSIN) 10 MG tablet Take 10 mg by mouth daily01/05/2022iscontinued(Stop Taking at Discharge) dilTIAZem (CARDIZEM 12 HR) 120 MG extended release capsule Take 120 mg by mouth daily09/16/2022Discontinued(Stop Taking at Discharge) Active Problems ProblemNoted DateDiagnosed DateMetabolic althecir12/14/2022KI (acute kidney injury)01/01/2022KD (chronic kidney disease) stage 3, GFR 30-59 ml/min 01/01/2022Non-intractable vomiting with efyoqy4701/01/20227374Vfngdmgz34/12/2022Lactic acid shplumfg54/12/4468Etypkhchdrksj03/12/2022aroxysmal A-fib01/01/2022History of TIA (transient ischemic attack)01/01/2022History of peptic ulcer01/01/2022 Overview (01/01/2022): S/p egd at [facility] 08/2020 Apnea01/01/2022History of kidney xjpbst1101/01/2022cute pancreatitis, unspecified complication status, unspecified pancreatitis type12/31/2021Gall stone xuvbiwzmdoym02/11/2022 Social History Tobacco UseTypesPacks/DayYears UsedDateSmoking Tobacco: NeverSmokeless Tobacco: Never Tobacco Cessation:Counseling Given: No Sex and Gender InformationValueDate RecordedSex Assigned at BirthNot on file Legal BlzIugz9806/01/2012 5:16 PM ESTGender IdentityNot on fileSexual Orientation Not on file Last Filed Vital Signs Vital SignReadingTime TakenCommentsBlood Souakwlb094/8009 9:00 AM EDT Evviv505101/05/2022 9:00 AM FVHVgttnylfbci00.6 ??C (97.9 ??F)01/05/2022 7:45 AM EDTRespiratory Onqd005101/05/2022 2:08 PM EDTOxygen Rmltjguzpp59%01/05/2022 7:45 AM EDTInhaled Oxygen Concentration--Pcglnn967.7 kg (255 lb)01/03/2022 6:00 AM XUAVybthi105.1 cm (6' 6 )12/31/2021 11:43 PM EDTBody Mass Index29.4709 11:43 PM EDT Plan of Treatment Health MaintenanceDue DateLast DoneCommentsDepression Rmrsut8905/21/1965Hepatitis C mlpsut9405/21/19716820Zjfkmpbcsyg91/30/1999Colorectal Cancer Csusur9105/21/1998 FIT/FOBT: Average risk1998Fecal-DNA (Cologuard): Average risk1998 Sigmoidoscopy/CT knzfyjsbxjal73/30/1999Pneumococcal 50+ years Vaccine (1 of 1 - PCV)2003Shingles vaccine (1 of 2)2003A1C test (Diabetic or Prediabetic)GFR test (Diabetes, CKD 3-4, OR last GFR 15-59) /, 01/04/2022, 01/03/2022, Additional history exists DTaP/Tdap/Td vaccine (2 - Td or Tdap)/nnual Wellness Visit (Medicare)03/18/2023Flu vaccine (#1)/11/2015COVID-19 Vaccine (3 - season)/, 06/17/20200368Tiordt02 Respiratory Syncytial Virus (RSV) or age 60 yrs+ (1 - 1-dose 75+ series)2028Diabetes nucyoeDsuzflwmxyao79/12/2022Hepatitis A vaccineAged OutNo longer eligible based on patient's age to complete this topicHepatitis B vaccineAged OutNo longer eligible based on patient's age to complete this topic Hib vaccineAged OutNo longer eligible based on patient's age to complete this topicMeningococcal (ACWY) vaccineAged OutNo longer eligible based on patient's age to complete this topicMeningococcal B vaccineAged OutNo longer eligible based on patient's age to complete this topicPolio vaccineAged OutNo longer eligible based on patient's age to complete this topic Procedures Procedure NamePriorityDate/TimeAssociated DiagnosisCommentsBASIC METABOLIC PANEL Kztedyn9501/05/2022 5:01 AM EDT HEMOGLOBIN P7WVMTC1901/01/2022 5:46 AM EDT LIPID GSUEEDkblefu38/12/2022 3:26 AM EDT from Last 3 Months or Most Recently Relevant to Health Maintenance Results * (ABNORMAL) Basic Metabolic Panel (01/05/2022 5:01 AM EDT)ComponentValueRef RangeTest MethodAnalysis TimePerformed AtPathologist GmrviohsiCpyetsn7525 - 99 mg/dL01/05/2022 5:01 AM EDTMERCY NHOWMCKVBXHMAHO73(H)8 - 23 mg/dL01/05/2022 5:01 AM EDTMERCY LABORATORIESCreatinine2.50(H)0.70 - 1.20 mg/dL01/05/2022 5:01 AM EDTMERCY LABORATORIESCalcium6.4(L)8.6 - 10.4 mg/dL01/05/2022 5:01 AM EDT MERCY WZBCWXURDMWAAxebiz972(H)135 - 144 mmol/L01/05/2022 5:01 AM EDTMERCY LABORATORIESPotassium4.63.7 - 5.3 mmol/L01/05/2022 5:01 AM EDTMERCY IMTYJPHJUCFTEporwbqb096(H)98 - 107 mmol/L01/05/2022 5:01 AM EDTMERCY IDNGUKVULSXSLA19270 - 31 mmol/L01/05/2022 5:01 AM EDTMERCY LABORATORIESAnion Cft476 - 17 mmol/L01/05/2022 5:01 AM EDTMERCY LABORATORIESGFR Non- Ojusvbgo36(L)>60 mL/min01/05/2022 5:01 AM EDTMERCY LABORATORIESGFR Eivjqxrl28(L)>60 mL/min01/05/2022 5:01 AM EDTMERCY LABORATORIESGFR Comment 01/05/2022 5:01 AM EDTMERCY LABORATORIESComment: Average GFR for 60-69 years old: 85 mL/min/1.73sq m Chronic Kidney Disease: <60 mL/min/1.73sq m Kidney failure: <15 mL/min/1.73sq m ? eGFR calculated using average adult body mass. Additional eGFR calculator available at: ? http://www.[employer]/multiple_crcl_2012.htm ? Specimen (Source)Anatomical Location / LateralityCollection Method / Volume Collection TimeReceived TimeBLOOD SPECIMEN / Pruktvj2601/05/2022 5:01 AM EDT 01/05/2022 6:04 AM EDT Narrative Authorizing ProviderResult TypeResult StatusSgrant Walker MDCHEMISTRY ORDERABLESFinal ResultPerforming OrganizationAddressty/State/ZIP Code[place] [address], [facility] [phone] * Hemoglobin A1C (01/01/2022 5:46 AM EDT)ComponentValueRef RangeTest Method Analysis TimePerformed AtPathologist SignatureHemoglobin A1C5.74.0 - 6.0 % 01/01/2022 5:46 AM EDTMERCY LABORATORIESEstimated Avg Vpwimot933hj/dL 01/01/2022 5:46 AM EDTMERCY LABORATORIESComment: The ADA and AACC recommend providing the estimated average glucose result to permit better patient understanding of their HBA1c result. Specimen (Source)Anatomical Location / LateralityCollection Method / Volume Collection TimeReceived Time01/01/2022 5:46 AM EDT01/01/2022 5:48 AM EDT Narrative Authorizing ProviderResult TypeResult StatusJohn Margaritaarcadiobebolori MDCHEMISTRY ORDERABLESFinal ResultPerforming OrganizationAddressCity/State/ZIP CodePhone [place] [address], [facility] [phone] * Lipid Panel (01/01/2022 3:26 AM EDT)ComponentValueRef RangeTest MethodAnalysis TimePerformed AtPathologist CujiwthrxRjnnabzkoij280<200 mg/dL01/01/2022 3:26 AM EDTMERCY LABORATORIESComment: Cholesterol Guidelines: <200 Desirable 200-240 ??Borderline >240 Undesirable HDL46>40 mg/dL01/01/2022 3:26 AM EDTMERCY LABORATORIESComment: HDL Guidelines: <40 Undesirable 40-59 ?Borderline >59 Desirable LDL Lrnvretbjrg550 - 130 mg/dL01/01/2022 3:26 AM EDTMERCY LABORATORIESComment: LDL Guidelines: <100 Desirable 100-129 ?? Near to/above Desirable 130-159 ?? Borderline >159 Undesirable Direct (measured) LDL and calculated LDL are not interchangeable tests. Chol/HDL Ratio2.2<509 3:26 AM EDTMERCY LABORATORIESComment:Triglycerides 53<150 mg/dL01/01/2022 3:26 AM EDTMERCY LABORATORIESComment: Triglyceride Guidelines: <150 Desirable 150-199 ??Borderline 200-499 ??High >499 Very high Based on AHA Guidelines for fasting triglyceride, January 2012. Specimen (Source)Anatomical Location / LateralityCollection Method / Volume Collection TimeReceived Time01/01/2022 3:26 AM EDT01/01/2022 3:29 AM EDT Narrative Authorizing ProviderResult TypeResult StatusVeranena Richelle Walden MDCHEMISTRY ORDERABLESFinal ResultPerforming OrganizationAddressCity/State/ZIP CodePhone Number [facility]ITALPower [employer] Corporation [facility] [address] [phone] from Last 3 Months or Most Recently Relevant to Health Maintenance Insurance [address] [id number] Advance Directives * Full Code (Latest Code Status on File) Date ActivatedDate InactivatedComments12/31/2021 11:43 PM01/05/2022 6:43 PM * Full Code Date ActivatedDate InactivatedComments12/31/2021 11:43 PM12/31/2021 11:43 PM Care Teams Team MemberRelationshipSpecialtyStart DateEnd Date Radha Torres MD [address] [place] [address] PCP - GeneralFakyly Medicine10/01/17
--- OUTSIDE RECORDS SUMMARY | 2025-03-15 09:25 | XMS_ITS | Clinical Summary ---
Author Organization [facility] Address [id number] [place] [address] Care Team Providers Care Picture Hanger Name Role Phone Radha Newton MD Primary Care Provider Allergies Active AllergyReactionsCriticalityNoted LwabIrifoygzBrlapuphlqu35/24/2001 As a child EjcjximxboKekbmbpeo74/05/2022 Unable to speak VancomycinAnaphylaxis,OtgknphHxbr70/16/2022 Itching hands/feet Medications MedicationSigDispense QuantityRefillsLast FilledStart DateEnd DateStatus LEVOTHYROXINE SODIUM (LEVOTHYROXINE ORAL) Take 175 mcg by mouth every other day.Active PRAMIPEXOLE DI-HCL (MIRAPEX ORAL) Take 2 mg by mouth nightly as needed (restless leg syndrome).Active CALCITRIOL ORAL Take 0.25 mcg by mouth in the morning.Active calcium carbonate (CALCIUM 500 ORAL) Take 1 tablet by mouth in the morning.Active benazepriL (LOTENSIN) 10 mg tablet Take 1 tablet (10 mg total) by mouth in the morning.05/31/2022ctive levothyroxine (SYNTHROID, LEVOTHROID) 150 MCG tablet Take 1 tablet (150 mcg total) by mouth every other day.Active ergocalciferol, vitamin D2, (VITAMIN D2 ORAL) Take 1.25 mg by mouth once a week. Per pt, he takes on SaturdayActive Active Problems ProblemNoted DateDiagnosed DateHistory of CVA (cerebrovascular accident) 12/24/2022H/O AFib bbcsayjh26/04/2023hest pain, unspecified type12/23/2022cute kidney injury superimposed on CKD12/23/2022Hypoparathyroidism after procedure 3Chest pain01/24/2021tage 3a chronic kidney lcjhqla1512/14/2020 Overview (12/24/2022): - baseline Cr unknown stage 3 b - baseline Cr unknown stage 3 b -baseline Cr unknown ASCVD (arteriosclerotic cardiovascular disease)12/14/2020 Overview (12/24/2022): - reported 60% stenosis - further details unknown Last Assessment & Plan: Coronary artery disease is stable without concerning symptoms Continue GDMT continue risk factor modifications- heart healthy diet, regular exercise as tolerated and continue all medications. - reported 60% stenosis - further details unknown - reported 60% stenosis - further details unknown Levbdbcuhpptwm78/09/2020Obstructive sleep apnea hzydqxta43/10/2020 Overview (12/24/2022): -chronic, on CPAP at home -stable -Continue CPAP while in hospital -chronic, on CPAP at home -stable -Continue CPAP while in hospital -chronic, on CPAP at home -stable -Continue CPAP while in hospital -chronic, on CPAP at home -stable -Continue CPAP while in hospital Duvfxvcshnjy36/12/2019Acquired xpbicdyuxrmmhu89/06/2016 Overview (12/24/2022): Pt is on synthroid after removal of thyroid for goiter Pt is on synthroid after removal of thyroid for goiter Pt is on synthroid after removal of thyroid for goiter Immunizations ImmunizationAdministration DatesNext DueCOVID-19, mRNA, LNP-S, PF, 100mcg/0.5mL Dose07/15/2020,06/17/2020 Family History Medical HistoryRelationNameCommentsAneurysmFatherCancerFatherCancerMother RelationNameStatusCommentsFatherDeceasedMotherDeceased Social History Tobacco UseTypesPacks/DayYears UsedDateSmoking Tobacco: FormerCigarettesQuit: 1983Smokeless Tobacco: FormerSnuff, ChewQuit: 1983 Tobacco Cessation:Counseling Given: Not Answered Alcohol UseStandard Drinks/WeekCommentsYes0 (1 standard drink = 0.6 oz pure alcohol)1 beer a monthChildcareAnswerDate MkfdgmhxFwgphfyabEorarne16/12/2019 EmploymentAnswerDate CmxisyvgSufcahdnfdNbzzmef19/12/2019Hunger ScreeningAnswer Date RecordedWithin the past 12 months we worried whether our food would run out before we got money to buy more.Never True12/23/2022Within the past 12 months the food we bought just didn't last and we didn't have money to get more.Never True3Purpose - LifeAnswerDate RecordedPurpose and direction in life Ebehwil5306/02/2020ex and Gender InformationValueDate RecordedSex Assigned at VldtrDelk61/03/2023 9:24 PM EDTLegal NegWhbq8911/25/2014 11:30 AM EDTGender RgvqlkwjWlob29/03/2023 9:24 PM EDTSexual TfsxebxnirvHezxfqvg18/03/2023 9:24 PM EDT Last Filed Vital Signs Vital SignReadingTime TakenCommentsBlood Dogwglly227/7609 7:53 AM EDT Bqtor414712/24/2022 10:49 AM MCEGfggpevgkck14.8 ??C (98.3 ??F)12/24/2022 7:53 AM EDTRespiratory Eedv557512/24/2022 7:53 AM EDTOxygen Yrakmrvxua46%12/24/2022 7:53 AM EDTInhaled Oxygen Concentration--Pdgoxs183.9 kg (251 lb)12/23/2022 5:54 PM YAACwxuet443.1 cm (6' 6 )12/23/2022 5:54 PM EDTBody Mass Index29.01012/23/2022 5:54 PM EDT Plan of Treatment Health MaintenanceDue DateLast DoneCommentsStatin Use: Nkgpinrmjeeeej86/30/1954 Depression Kuunvvcio29/30/1966Tobacco Lgpeoztyg13/30/1966Zoster (Shingles) Vaccine (1 of 2)2003Fall Risk Islnnjrjs62/30/2019DTaP,Tdap and Td Vaccines (2 - Td or Tdap)/dult BMI Wzdiwnwur74 COVID-19 Vaccine ( season)/, 07/15/2020, 06/17/2020Influenza Klytome51RSV ( or age 60+ yrs) (1 - 1-dose 75+ series)2028 Medical Devices ImplantedTypeAreaManufacturerDevice IdentifierShelf Expiration DateModel / Serial / LotLens Iol Ultrasert 13.5d - [id number] - [id number] Implanted:Qty: 1 on 02/27/2022 by Sara Gonzalez MD at [facility]: [id number] 13.5 / [id number] / NA Insurance Advance Directives * Full Code (Latest Code Status on File) Date ActivatedDate InactivatedComments12/23/2022 4:38 PM12/24/2022 2:19 PM Care Teams Team MemberRelationshipSpecialtyStart DateEnd Date Radha Newton MD [address] [place] [address] PCP - GeneralFamily Medicine08/30/16
--- OUTSIDE RECORDS SUMMARY | 2025-03-15 09:25 | XMS_ITS | Clinical Summary ---
Author Organization [facility] Address [address] [place] [address] Care Team Providers Care Wrapper Stitcher Name Role Phone Unavailable Primary Care Provider Unavailabl e Social History Tobacco UseTypesPacks/DayYears UsedDateSmoking Tobacco: Never AssessedSex and Gender InformationValueDate RecordedSex Assigned at BirthNot on fileLegal Sex Male05/25/2012 2:59 PM ESTGender IdentityNot on fileSexual OrientationNot on file Plan of Treatment Health MaintenanceDue DateLast DoneCommentsHEPATITIS C VIRUS SHELNVEWG96/30/1954 DVIVFIF43 1953TDAP (ADULT)1972LIPID KEJRQURQL03/30/1994COLORECTAL CANCER SCREENING XXCNQJONZZ26/30/1999PNEUMOCOCCAL VACCINE SERIES (1 of 1 - PCV) 2003ZOSTER (SHINGLES) VACCINE (1 of 2)2003ABDOMINAL AORTIC ANEURYSM HIGH RISK QBTWFG7505/21/2018COVID-19 VACCINE (1 - 2024- season)2024 INFLUENZA VACCINE (#1)2024RSV VACCINE (1 - 1-dose 75+ series)2028HEP B VACCINEAged OutNo longer eligible based on patient's age to complete this topic
--- OUTSIDE RECORDS SUMMARY | 2025-03-15 09:25 | XMS_ITS | Clinical Summary ---
Author Organization [facility] Address [address] [place] [address] Care Team Providers Care Silviculturist Name Role Phone Radha Newton MD Primary Care Provider [phone] Esther Grey DO Unavailable Source Comments The following information is NOT included in Care Everywhere downloads:Psychiatric notes, ECG results, Cardiac Rehab notes, Pulmonary Function notes, data from [facility] (includes but not limited toPregnancy data,audiograms, eye exams, pre-surgical evaluation notes, well-child exam data).[facility] Allergies Active AllergyReactionsCriticalityNoted SfizUpwybcnjBsddissbdox14/24/2001 Medications MedicationSigDispense QuantityRefillsLast FilledStart DateEnd DateStatus benazepril (LOTENSIN) 5 MG tablet 12/07/2019Active isosorbide mononitrate (IMDUR) 30 MG CR tablet 12/02/2019Active CALCIUM ORAL Take by mouth.Active nitrofurantoin monohydrate macrocrystal (MACROBID) 100 MG capsule 01/22/2020Active fluconazole (DIFLUCAN) 100 MG tablet Take 1 Tablet by mouth daily. 14 Tablet Active clindamycin (CLEOCIN) 300 MG capsule Take 2 Capsules by mouth 2 times daily. 28 Capsule 01/27/2020Active nystatin (MYCOSTATIN) 100,000 unit/g powder Apply topically 3 times daily. 45 g Active amlodipine-benazepril (LOTREL) 5-10 MG per capsule 10/19/2020Active metoprolol (LOPRESSOR) 25 MG tablet 02/08/2020Active omeprazole (PRILOSEC) 40 MG capsule TAKE 1 CAPSULE BY MOUTH DAILY. 30 Capsule 01/15/2020Active lisinopril (ZESTRIL) 5 MG tablet TAKE 1 TABLET BY MOUTH DAILY. 90 Tablet Active sucralfate (CARAFATE) 1 GM tablet TAKE 1 TABLET BY MOUTH 4 TIMES DAILY (BEFORE MEALS AND AT BEDTIME). 120 Tablet Active pramipexole (MIRAPEX) 1 MG tablet TAKE 2 TABLETS BY MOUTH AT BEDTIME. 90 Tablet Active metoprolol (TOPROL-XL) 25 mg XL tablet TAKE 1 TABLET BY MOUTH DAILY. 30 Tablet Active levothyroxine (SYNTHROID) 25 MCG tablet TAKE 5 TABLETS BY MOUTH DAILY. 30 Tablet Active diltiazem (CARDIZEM CD) 120 MG ER capsule TAKE 1 CAPSULE BY MOUTH DAILY. 30 Capsule Active calcitriol (ROCALTROL) 0.25 MCG capsule TAKE 1 CAPSULE BY MOUTH DAILY. 30 Capsule Active esomeprazole (NEXIUM) 40 MG capsule TAKE 1 CAPSULE BY MOUTH 2 TIMES DAILY (30 MINUTES BEFORE MEALS). 120 Capsule Discontinued(Legacy Prescription Brought in as Discontinued) Active Problems ProblemNoted DateDiagnosed DatePersistent atrial kymspezqhmft41/24/2020Tension type /16/2020Nuclear sclerotic cataract, left10/07/2017 Overview (01/06/2020): Added automatically from request for surgery [id number] Retinal detachment, left10/07/2017 Overview (01/06/2020): Added automatically from request for surgery [id number] Added automatically from request for surgery [id number] Multifocal atrial tachycardiaPAF (paroxysmal atrial fibrillation)HTN (hypertension)CKD (chronic kidney disease) stage 3, GFR 30-59 ml/minChest pain Immunizations ImmunizationAdministration DatesNext DueInfluenza, injectable, quadrivalent, preservative free (RUZ=087)01/28/2016Moderna Monovalent (12+ yrs) COVID-19 vaccine, mRNA, spike protein, LNP, PF, 100 mcg/0.5 mL (VXR=781)07/15/2020, 06/17/2020Tdap (ARF=637)01/27/2013 Family History Medical HistoryRelationNameCommentsDiabetes MellitusFatherHypertensionFather HypertensionPaternal GrandmotherRelationNameStatusCommentsFatherPaternal Grandmother Social History Tobacco UseTypesPacks/DayYears UsedDateSmoking Tobacco: OmncdcLxqrsehyut0Fouy: 01/06/1984Smokeless Tobacco: NeverAlcohol UseStandard Drinks/WeekCommentsYes1 (1 standard drink = 0.6 oz pure alcohol)AUDIT-CAnswerDate RecordedQ1: How often do you have a drink containing alcohol?Monthly or less01/06/2020Average Number of DrinksNot on file01/06/2020Frequency of Binge DrinkingNot on file01/06/2020PHQ-2 AnswerDate RecordedPHQ-2 Ghgqy428Substance UseTypesUse/WeekCommentsNever Sex and Gender InformationValueDate RecordedSex Assigned at BirthNot on file Legal DarZsqd7112/26/2019 2:01 PM EDTGender IdentityNot on fileSexual Orientation Not on file Last Filed Vital Signs Vital SignReadingTime TakenCommentsBlood Trtoghmk055/7810 9:23 AM EDT Hpqzg4038 9:23 AM TPJPbffnaisroj58.6 ??C (97.9 ??F)01/27/2020 9:23 AM EDTRespiratory Mugl3579 9:23 AM EDTOxygen Lpqwadhqnf34%01/27/2020 9:23 AM EDTInhaled Oxygen Concentration--Nksglw658.3 kg (252 lb)01/27/2020 9:23 AM PHTOjzwgi334.1 cm (6' 6 )01/14/2020 5:19 PM EDTBody Mass Index29.1209 5:19 PM EDT Plan of Treatment Health MaintenanceDue DateLast GxuxWfcmsoshChfisditwla23/30/1956Hepatitis C Qxakpvzc22/30/1972Hepatitis A (HAV) Vaccine (optional start 19+ years)1972 Uvejzmnxpis86/30/1989CRC Orooinznt13/30/1999Cologuard (Stool DNA)1998FIT 1998Pneumococcal Vaccine(s) (50+ yrs) (1 of 1 - PCV)2003Shingles (RZV) Vaccine (1 of 2)2003Hepatitis B (HBV) Vaccine (optional start 60+ years)2013bdominal Aortic Aneurysm Npmdhud7105/21/2018Annual Wellness Visit (G0438)02/21/2020TSHTetanus (Td or Tdap) Khbdwac0901/27/2023 01/27/2013asic Metabolic Panel/03/2023, 01/15/2020, 01/14/2020, Additional history existsCOVID-19 Vaccine ( - 2024- season)2024 04/10/2021, 07/15/2020, 06/17/2020Influenza Vaccine (#1)RSV vaccine (adult) (1 - 1-dose 75+ series)2028Tdap NfbmhctPukgghthy70/08/2013 Procedures Procedure NamePriorityDate/TimeAssociated DiagnosisCommentsBASIC METABOLIC PANEL Vjaewmy7201/15/2020 12:10 AM EDT ZQWLjlcbou19/16/2020 3:03 PM EDT Persistent atrial fibrillation (HCC) Multifocal atrial tachycardia (HCC) Palpitations SOB (shortness of breath) Lightheaded Anticoagulated 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, unspecified type ADA (obstructive sleep apnea) Multiple gastric ulcers from Last 3 Months or Most Recently Relevant to Health Maintenance Results * (ABNORMAL) BASIC METABOLIC PANEL (01/15/2020 12:10 AM EDT)ComponentValueRef RangeTest MethodAnalysis TimePerformed AtPathologist LgozdnluiSstzrdt368(H)80 - 116 mg/dL01/15/2020 12:39 AM [facility] LWVCVTHFQIOqzpfb482985 - 148 mmol/L01/15/2020 12:39 AM [facility]EN[facility] LABORATORYPotassium3.73.3 - 5.3 mmol/L01/15/2020 12:39 AM [facility] PATH[facility] LABORATORYCarbon Zoqdpwk7575 - 30 mmol/L01/15/2020 12:39 AM [facility] NJTCQHKMDZNwohsegw97039 - 111 mmol/L01/15/2020 12:39 AM [facility] LABORATORYBlood Urea Vliracvz891 - 22 mg/dL01/15/2020 12:39 AM [facility] LABORATORYCreatinine1.32(H)0.80 - 1.30 mg/dL01/15/2020 12:39 AM [facility] LABORATORYCalcium6.8(L)8.4 - 10.4 mg/dL01/15/2020 12:39 AM [facility] LABORATORYAnion Gap15(H)5 - 13 01/15/2020 12:39 AM [facility] LABORATORYEstimated GFR (CKD-EPI)56(L) >=60 mL/min/1.04tla0801/15/2020 12:39 AM [facility] PATH[facility] LABORATORYSpecimen (Source)Anatomical Location / LateralityCollection Method / VolumeCollection TimeReceived TimeBloodBLOOD SPECIMEN / UnknownPort Draw / Rhmsgay6801/15/2020 12:10 AM EDT01/15/2020 12:14 AM EDT Narrative Authorizing ProviderResult TypeResult StatusRyan Yavorsky DO98 GENERAL LABFinal ResultPerforming OrganizationAddressCity/State/ZIP CodePhone Number [facility] [address] [place] [address] * TSH (01/06/2020 3:03 PM EDT)ComponentValueRef RangeTest MethodAnalysis Time Performed AtPathologist SignatureTSH1.4120.450 - 5.330 uIU/mL01/06/2020 5:08 PM [facility] PATH[facility] LABORATORYSpecimen (Source)Anatomical Location / LateralityCollection Method / VolumeCollection TimeReceived TimeBloodBLOOD SPECIMEN / UnknownVenipuncture / Elmzkxz0201/06/2020 3:03 PM EDT01/06/2020 4:15 PM EDT Narrative Authorizing ProviderResult TypeResult StatusSaima Karim DO98 GENERAL LABFinal ResultPerforming OrganizationAddressCity/State/ZIP CodePhone Number [facility] [address] [place] [address] from Last 3 Months or Most Recently Relevant to Health Maintenance Insurance * Guarantor: Everardo Arnold TypeRelation to PatientDate of PhoneBilling AddressGoing Home KxnuHitb07/30/1956 [address] [address] Advance Directives * Full Code (Latest Code Status on File) Date ActivatedDate InactivatedComments01/15/2020 1:13 AM01/15/2020 5:04 PMQuestion AnswerCommentsDocumentation of decision process for this code status:* Discussed with patient or surrogate.?? This is the code status chosen by the patient/surrogate. Care Teams Team MemberRelationshipSpecialtyStart DateEnd Date Radha Newton MD [address] [place] [address] PCP - GeneralInternal Medicine01/14/20 Esther Grey DO [address] [place] [address] [place] [address] JkvyfzogmQqubpotxxswyhjabk53/6/20
--- OUTSIDE RECORDS SUMMARY | 2025-03-15 09:25 | XMS_ITS | Clinical Summary ---
Author Organization [facility] Address [address] [place] [address] Phone Care Team Providers Care Alterations Tailor Name Role Phone Radha Newton MD Primary Care Provider [phone] Allergies Active AllergyReactionsCriticalityNoted CrmtAspynxoiByfgvukkcukMmiyhaz87/11/2023 NvrvjlcobkuVgkowqr22/11/4506BpyyxietrgAbitnjb09/11/2023Vancomycin HclUnknown 01/30/2023Vancomycin Hcl In GjpzaHoccxke12/11/2023 Medications MedicationSigDispense QuantityRefillsLast FilledStart DateEnd DateStatus venlafaxine XR (Effexor-XR) 37.5 mg 24 hr capsule Take 1 capsule (37.5 mg) by mouth once daily in the morning. DO NOT CRUSH OR CHEW07/21/2022ctive tiZANidine (Zanaflex) 4 mg tablet Take by mouth.Active sucralfate (Carafate) 1 gram tablet Take by mouth.01/15/2020Active pyridostigmine (Mestinon) 60 mg tablet TAKE 1 TAB BY MOUTH THREE TIMES DAILY (BEFORE BREAKFAST, BEFORE LUNCH, BEFORE EVENING MEAL) START AT ONE HALF TAB THREE TIMES DAILY WITH MEALS AND INCREASE TOLERATED TO THE FULL TAB 3 TIMES A DAY08/08/2022ctive pramipexole (Mirapex) 1 mg tablet Take 2 tablets (2 mg) by mouth once daily in the evening.Active omeprazole (PriLOSEC) [address] capsule Take 1 capsule (20 mg) by mouth once daily. Take 30 minutes prior to dinner 10/09/2022ctive omeprazole (PriLOSEC) [address] capsule Take 1 capsule (40 mg) by mouth once daily in the morning. Take before meals. DO NOT CRUSH OR CHEW.Active metoprolol succinate XL (Toprol-XL) 25 mg 24 hr tablet Take by mouth.Active levothyroxine (Synthroid, Levoxyl) 150 mcg tablet Take 1 tablet (150 mcg) by mouth once daily in the morning. Take before meals. TAKE ON AN EMPTY STOMACH ON SATURDAY, SATURDAY, SATURDAY AND ctive levothyroxine (Synthroid, Levoxyl) 175 mcg tablet Take 1 tablet (175 mcg) by mouth once daily in the morning. Take before meals. TAKE ON AN EMPTY STOMACH ON , AND SAT10/11/2022ctive indomethacin (Indocin) 25 mg capsule Take by mouth.Active gabapentin (Neurontin) 300 mg capsule Take 1 capsule (300 mg) by mouth 2 times a day as needed (Pain).Active febuxostat (Uloric) 40 mg tablet Take 1 tablet (40 mg) by mouth once daily.Active ergocalciferol (Vitamin D-2) 1.25 MG (68831 UT) capsule Take 1 capsule (1,250 mcg) by mouth 1 (one) time per week.10/08/2022ctive ERENUMAB-AOOE SUBQ Inject under the skin.Active dilTIAZem CD (Cardizem CD) 180 mg 24 hr capsule Take 2 capsules (360 mg) by mouth once daily in the morning.09/08/2022ctive clopidogrel (Plavix) 75 mg tablet Take by mouth.07/28/2022ctive calcium carbonate (Oscal) 500 mg calcium (1,250 mg) tablet Take 1 tablet (1,250 mg) by mouth 2 times a day with meals.05/22/2022ctive calcitriol (Rocaltrol) 0.25 mcg capsule Take by mouth.Active benazepril (Lotensin) 10 mg tablet Take 1 tablet (10 mg) by mouth once daily.11/14/2022ctive benazepril (Lotensin) 5 mg tablet Take 2 tablets (10 mg) by mouth once daily. Replacing amlodipine/benazepril 11/06/2019Active atorvastatin (Lipitor) 80 mg tablet Take by mouth.Active apixaban (Eliquis) 5 mg tablet Take by mouth.Active dilTIAZem CD (Cardizem CD) 240 mg 24 hr capsule Take 1 capsule (240 mg) by mouth once daily in the morning.04/30/2022ctive dilTIAZem (Cardizem) 30 mg immediate release tablet Take 2 tablets (60 mg) by mouth 4 times a day.11/06/2019Active dilTIAZem CD (dilTIAZem ER) 120 mg 24 hr capsule Take by mouth.01/15/2020Active levothyroxine (Synthroid, Levoxyl) 125 mcg tablet Take 1 tablet (125 mcg) by mouth once daily at bedtime. REPEAT TSH in FOUR WEEKS 11/06/2019Active levothyroxine (Synthroid, Levoxyl) 25 mcg tablet Take by mouth.01/15/2020Active sertraline (Zoloft) 50 mg tablet Take by mouth.Active tamsulosin (Flomax) 0.4 mg 24 hr capsule Take by mouth.Active Active Problems ProblemNoted DateDiagnosed DateBilateral partial vocal cord gyigtjjqz29/11/2023 Dysphagia, oropharyngeal phase01/30/2023lottic hzaxbfmqngqby63/11/2023trial blzyvopsffon96/11/9341Bmspibl94/11/2023GERD (gastroesophageal reflux disease) 01/30/2023Muscle chocqk1001/30/2023 Immunizations ImmunizationAdministration DatesNext DueFlu vaccine (IIV4), preservative free *Check age/dose*01/28/2016Tdap vaccine, age 7 year and older (BOOSTRIX, ADACEL) 01/27/2013 Family History Medical HistoryRelationNameCommentsLung cancerFatherLung cancerMotherRelation NameStatusCommentsFatherMother Social History Tobacco UseTypesPacks/DayYears UsedDateSmoking Tobacco: Never AssessedSex and Gender InformationValueDate RecordedSex Assigned at BirthNot on fileLegal Sex Male03/16/2022 6:56 PM ESTGender IdentityNot on fileSexual OrientationNot on file Last Filed Vital Signs Vital SignReadingTime TakenCommentsBlood Cljmiowx785/6507 2:23 PM EDT Skrzl4057/ 2:23 PM ETKDhbwnheddoc59.6 ??C (97.8 ??F)08/17/2022 10:33 AM EDTRespiratory Lbeg896308/17/2022 10:33 AM EDTOxygen Hljdrfqtaw58%08/17/2022 10:33 AM EDTInhaled Oxygen Concentration--Orrxax805 kg (250 lb)01/31/2023 2:51 PM EDT Vueqwp301.1 cm (6' 6 )11/29/2022 1:43 PM EDTBody Mass Index28.8911/29/2022 1:43 PM EDT Plan of Treatment Health MaintenanceDue DateLast DoneCommentsCT Gggihlwqpflr23/30/1954Colonoscopy 1955olorectal Cancer Zgmltiavm81/30/1954FIT-DNA (Cologuard)1955FIT 1955Lipid Panel1955 9657Msgzfgulmuazu86/30/1954TSH Level1953MMR Vaccines (1 of 1 - Standard series)1954Hepatitis C Keweevjwu63/30/1972 Pneumococcal Vaccine (1 of 1 - PCV)2003RSV High Risk: (Elderly (60+) or Population) (1 - Risk 50-74 years 1-dose series)2003Zoster Vaccines (1 of 2)2003Medicare Annual Wellness Visit (AWV)12/17/2020 12/17/2019DTaP/Tdap/Td Vaccines (2 - Td or Tdap)Diabetes Vcybkvfti13, 11/21/2022, 01/01/2022Influenza Vaccine (#1) /11/2015COVID-19 Vaccine ( season), 07/15/2020, 06/17/2020Irritable Bowel NoaveaabWjsmtglpnocl19/25/2023, 08/30/2022 HIB VaccinesAged OutNo longer eligible based on patient's age to complete this topicHPV VaccinesAged OutNo longer eligible based on patient's age to complete this topicHepatitis A VaccinesAged OutNo longer eligible based on patient's age to complete this topicHepatitis B VaccinesAged OutNo longer eligible based on patient's age to complete this topicIPV VaccinesAged OutNo longer eligible based on patient's age to complete this topicMeningococcal VaccineAged OutNo longer eligible based on patient's age to complete this topicRotavirus VaccinesAged Out No longer eligible based on patient's age to complete this topic Procedures Procedure NamePriorityDate/TimeAssociated DiagnosisCommentsBASIC METABOLIC PANEL STAT1 3:30 PM EDT Left lower quadrant abdominal pain FBUQwpuzro99/25/2023 3:41 PM EDT from Last 3 Months or Most Recently Relevant to Health Maintenance Results * (ABNORMAL) Basic metabolic panel (01/31/2023 3:30 PM EDT)ComponentValueRef RangeTest MethodAnalysis TimePerformed AtPathologist TeqgeiasxUdyrown8275 - 99 mg/dL LAB CHEMISTRY METHOD 01/31/2023 5:09 PM [facility] PMLBstwhv391355 - 145 mmol/L LAB CHEMISTRY METHOD 01/31/2023 5:09 PM [facility] LABPotassium4.33.5 - 5.3 mmol/L LAB CHEMISTRY METHOD 01/31/2023 5:09 PM [facility] WSJDcgvmmda89859 - 107 mmol/L LAB CHEMISTRY METHOD 01/31/2023 5:09 PM [facility] ZKJKquzgxoefra0768 - 32 mmol/L LAB CHEMISTRY METHOD 01/31/2023 5:09 PM [facility] LABAnion Vdz1574 - 20 mmol/L LAB CHEMISTRY METHOD 01/31/2023 5:09 PM [facility] LABUrea Fveznqtj74(H)6 - 23 mg/dL LAB CHEMISTRY METHOD 01/31/2023 5:09 PM [facility] LABCreatinine1.65(H)0.50 - 1.30 mg/dL LAB CHEMISTRY METHOD 01/31/2023 5:09 PM [facility] NOFdUVW48(L)>60 mL/min/1.73m*2 LAB CHEMISTRY METHOD 01/31/2023 5:09 PM [facility] LABComment: Calculations of estimated GFR are performed using the 2020 CKD-EPI Study Refit equation without therace variable for the IDMS-Traceable creatinine methods. https://jasn.asnjournals.org/content///ASN.2607038702 Calcium7.2(L)8.6 - 10.3 mg/dL LAB CHEMISTRY METHOD 01/31/2023 5:09 PM [facility] LABSpecimen (Source)Anatomical Location / LateralityCollection Method / VolumeCollection TimeReceived TimeBlood Venous blood specimen / UnknownVenipuncture / Ujzygno6601/31/2023 3:30 PM EDT 01/31/2023 3:30 PM EDT Narrative Authorizing ProviderResult TypeResult StatusYossi Chen MDLAB BLOOD ORDERABLES Final ResultPerforming OrganizationAddressCity/State/ZIP CodePhone Number [facility] [address] [place] [address] * Esophagogastroduodenoscopy (EGD) (09/13/2022 3:41 PM EDT)Anatomical Region LateralityModalityEndoscopySpecimen (Source)Anatomical Location / Laterality Collection Method / VolumeCollection TimeReceived Time09/13/2022 3:41 PM EDT Narrative 09/13/2022 4:51 PM EDT Patient Name: Everardo Arnold Procedure Date: 09/13/2022 3:41 PM Date of : 1955 Admit Type: Outpatient Site: [place] Procedure Room 2 Ethnicity: Not or Race: White Attending MD: Ruby Daily MD, [id number] Procedure: ? Upper GI endoscopy Indications: ? Dysphagia, cricopharyngeal web Providers: ? Ruby Daily MD (Doctor), Vale Mercado RN ? (Nurse), Sabina Atkins, Meat Manager Referring: ? Ruby Daily MD Medicines: ? Fentanyl 200 micrograms IV, Midazolam 4 mg IV Complications: ? No immediate complications. Procedure: ? Pre-Anesthesia Assessment: ? - Prior to the procedure, a History and Physical was ? performed, and patient medications and allergies were ? reviewed. The patient is competent. The risks and ? benefits of the procedure and the sedation options and ? risks were discussed with the patient. All questions ? were answered and informed consent was obtained. ? Patient identification and proposed procedure were ? verified by the physician and the nurse in the ? pre-procedure area in the procedure room. Mental ? Status Examination: alert and oriented. Airway ? Examination: normal oropharyngeal airway and neck ? mobility. Respiratory Examination: clear to ? auscultation. CV Examination: normal. Prophylactic ? Antibiotics: The patient does not require prophylactic ? antibiotics. Prior Anticoagulants: The patient has ? taken no anticoagulant or antiplatelet agents except ? for aspirin. ASA Grade Assessment: III - A patient ? with severe systemic disease. After reviewing the ? risks and benefits, the patient was deemed in ? satisfactory condition to undergo the procedure. The ? anesthesia plan was to use moderate sedation / ? analgesia (conscious sedation). Immediately prior to ? administration of medications, the patient was ? re-assessed for adequacy to receive sedatives. The ? heart rate, respiratory rate, oxygen saturations, ? blood pressure, adequacy of pulmonary ventilation, and ? response to care were monitored throughout the ? procedure. The physical status of the patient was ? re-assessed after the procedure. ? - Prior Aspirin/ NSAID therapy: The patient has taken ? aspirin. ? After obtaining informed consent, the endoscope was ? passed under direct vision. Throughout the procedure, ? the patient's blood pressure, pulse, and oxygen ? saturations were monitored continuously. The ? ultra-thin endoscope was introduced through the left ? nostril, and advanced to the pylorus. The upper GI ? endoscopy was accomplished without difficulty. The ? patient tolerated the procedure well. Findings: ? Vocal cord dysfunction. ? A large hiatal hernia was present. ? A single 6 mm nodule with a localized distribution was found at the ? gastroesophageal junction, 45cm from nares. Biopsies were taken with a ? cold forceps for histology. ? Diffuse atrophic mucosa was found in the entire examined stomach. ? A web was found at the cricopharyngeus. A guide wire was placed, then ? the scope was withdrawn. Using the wire as a guide, dilation with ? Infinity 3000 dilator was performed to 32mm 4atm. Moderate Sedation: ? Moderate (conscious) sedation was administered by the nurse and ? supervised by the endoscopist. The following parameters were monitored: ? oxygen saturation, heart rate, blood pressure, and response to care. ? Total physician intraservice time was 22 minutes. Impression: ?- Vocal cord dysfunction (inappropriate vocal cord ? adduction) was found. ? - Large hiatal hernia. ? - Nodule found in the esophagus. Biopsied. ? - Gastric mucosal atrophy. ? - Web at the [facility]. Dilated. Estimated Blood Loss: ? Estimated blood loss was minimal. Recommendation: ?- Discharge patient to home (with escort). ? - Soft diet today. ? - Return to my office in 3 weeks. ? - Patient has a contact number available for ? emergencies. The signs and symptoms of potential ? delayed complications were discussed with the patient. ? Return to normal activities tomorrow. Written ? discharge instructions were provided to the patient. ? - Continue present medications. Procedure Code(s): ? --- Professional --- ? 26735, Moderate sedation services provided by the same ? physician or other qualified health adult care manager ? performing the diagnostic or therapeutic service that ? the sedation supports, requiring the presence of an ? independent trained observer to assist in the ? monitoring of the patient's level of consciousness and ? physiological status; initial 15 minutes of ? intraservice time, patient age 5 years or older ? [address], Unlisted procedure, esophagus Diagnosis Code(s): ? --- Professional --- ? J38.3, Other diseases of vocal cords ? K44.9, Diaphragmatic hernia without obstruction or ? gangrene ? K22.89, Other specified disease of esophagus ? K31.89, Other diseases of stomach and duodenum ? 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 R13.10, Dysphagia, unspecified CPT copyright 2021 [employer]. All rights reserved. The codes documented in this report are preliminary and upon consulting analyst review may be revised to meet current compliance requirements. Attending Participation: ? This operation could not have been safely performed (without ? compromising the technical results or length of the procedure) without ? the assistance of a skilled surgical asst. A surgical asst was ? medically necessary for positioning, retraction, and instrumentation. MD Ruby Edouard MD 09/13/2022 4:51:32 PM Number of Addenda: 0 Note Initiated On: 09/13/2022 3:41 PM Total Procedure Duration Time 0 hours 21 minutes 22 seconds Procedure Note Ruby Daily MD - 03/17/2024 Patient Name: Everardo Arnold Procedure Date: 09/13/2022 3:41 PM Date of : 1955 Admit Type: Outpatient Site: [place] Procedure Room 2 Ethnicity: Not or Race: White Attending MD: Ruby Daily MD, [id number] Procedure: Upper GI endoscopy Indications: Dysphagia, cricopharyngeal web Providers: Ruby Daily MD (Doctor), Vale Mercado RN (Nurse), Sabina Atkins, Meat Manager Referring: Ruby Daily MD Medicines: Fentanyl 200 micrograms IV, Midazolam 4 mg IV Complications: No immediate complications. Procedure: Pre-Anesthesia Assessment: - Prior to the procedure, a History and Physicalwas performed, and patient medications and allergieswere reviewed. The patient is competent. The risks and benefits of the procedure and the sedation optionsand risks were discussed with the patient. Allquestions were answered and informed consent was obtained. Patient identification and proposed procedure were verified by the physician and the nurse in the pre-procedure area in the procedure room. Mental Status Examination: alert and oriented. Airway Examination: normal oropharyngeal airway and neck mobility. Respiratory Examination: clear to auscultation. CV Examination: normal. Prophylactic Antibiotics: The patient does not requireprophylactic antibiotics. Prior Anticoagulants: The patient has taken no anticoagulant or antiplatelet agentsexcept for aspirin. ASA Grade Assessment: III - A patient with severe systemic disease. After reviewing the risks and benefits, the patient was deemed in satisfactory condition to undergo the procedure.The anesthesia plan was to use moderate sedation / analgesia (conscious sedation). Immediately priorto administration of medications, the patient was re-assessed for adequacy to receive sedatives. The heart rate, respiratory rate, oxygen saturations, blood pressure, adequacy of pulmonary ventilation,and response to care were monitored throughout the procedure. The physical status of the patient was re-assessed after the procedure. - Prior Aspirin/ NSAID therapy: The patient hastaken aspirin. After obtaining informed consent, the endoscope was passed under direct vision. Throughout theprocedure, the patient's blood pressure, pulse, and oxygen saturations were monitored continuously. The ultra-thin endoscope was introduced through theleft nostril, and advanced to the pylorus. The upper GI endoscopy was accomplished without difficulty. The patient tolerated the procedure well. Findings: Vocal cord dysfunction. A large hiatal hernia was present. A single 6 mm nodule with a localized distribution was found at the gastroesophageal junction, 45cm from nares. Biopsies were taken witha cold forceps for histology. Diffuse atrophic mucosa was found in the entire examined stomach. A web was found at the cricopharyngeus. A guide wire was placed, then the scope was withdrawn. Using the wire as a guide, dilation with Infinity 3000 dilator was performed to 32mm 4atm. Moderate Sedation: Moderate (conscious) sedation was administered by the nurse and supervised by the endoscopist. The following parameters weremonitored: oxygen saturation, heart rate, blood pressure, and response to care. Total physician intraservice time was 22 minutes. Impression: - Vocal cord dysfunction (inappropriate vocal cord adduction) was found. - Large hiatal hernia. - Nodule found in the esophagus. Biopsied. - Gastric mucosal atrophy. 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 Dilated. Estimated Blood Loss: Estimated blood loss was minimal. Recommendation: - Discharge patient to home (with escort). - Soft diet today. - Return to my office in 3 weeks. - Patient has a contact number available for emergencies. The signs and symptoms of potential delayed complications were discussed with thepatient. Return to normal activities tomorrow. Written discharge instructions were provided to thepatient. - Continue present medications. Procedure Code(s): --- Professional --- 60209, Moderate sedation services provided by [facility] physician or other qualified health careprofessional performing the diagnostic or therapeutic servicethat the sedation supports, requiring the presence of an independent trained observer to assist in the monitoring of the patient's level of consciousnessand physiological status; initial 15 minutes of intraservice time, patient age 5 years or older [address], Unlisted procedure, esophagus Diagnosis Code(s): --- Professional --- J38.3, Other diseases of vocal cords K44.9, Diaphragmatic hernia without obstruction or gangrene K22.89, Other specified disease of esophagus K31.89, Other diseases of stomach and duodenum Q39.4, Esophageal web R13.10, Dysphagia, unspecified CPT copyright 2021 [employer]. All rights reserved. The codes documented in this report are preliminary and upon consulting analyst reviewmay be revised to meet current compliance requirements. Attending Participation: This operation could not have been safely performed (without compromising the technical results or length of the procedure)without the assistance of a skilled surgical asst. A surgical assistantwas medically necessary for positioning, retraction, andinstrumentation. MD Ruby Edouard MD 09/13/2022 4:51:32 PM Number of Addenda: 0 Note Initiated On: 09/13/2022 3:41 PM Total Procedure Duration Time 0 hours 21 minutes 22 seconds Authorizing ProviderResult TypeResult StatusRuby Daily MDENDOSCOPY PROCEDURE ORDERABLESEdited Result - Final from Last 3 Months or Most Recently Relevant to Health Maintenance Insurance [address] [place] [address] Care Teams Team MemberRelationshipSpecialtyStart DateEnd Date Radha Newton MD [address] [place] [address] [facility] - Zhhmowl08/1/20
--- OUTSIDE RECORDS SUMMARY | 2025-03-15 09:26 | XMS_ITS | Clinical Summary ---
Author Organization [facility] Address [address] [place] [address] Care Team Providers Care Outside Property Agent Name Role Phone Radha Newton MD Primary Care Provider Allergies Active AllergyReactionsCriticalityNoted YegeKqvrqtjaMhampsfovxzHgxji67/17/2022 As a child XfrejilgieSwiol47/08/2022 aphasia FxblopnqmfYnyfiibTyi73/16/2022 Itching hands/feet Medications MedicationSigDispense QuantityRefillsLast FilledStart DateEnd DateStatus aspirin 81 mg chewable tablet Indications:Paroxysmal atrial fibrillation (CMS/HCC)Chew 1 tablet (81 mg) in the morning. Do not start before March 08, 2022. 30 tablet ctive Additional Information Patient not taking.Reported on 01/19/2025 levothyroxine (Synthroid, Levoxyl) 150 mcg tablet Take 150 mcg by mouth before breakfast.Active calcium 500 mg calcium (1,250 mg) tablet Take 1 tablet by mouth in the morning.Active pramipexole (Mirapex) 1 mg tablet Take 1 mg by mouth once daily as directed.ctive nitroglycerin (Nitrostat) 0.[address] 0.4 mg under the tongue.02/06/2024ctive magnesium oxide (Mag-Ox) 400 mg (241.3 mg magnesium) tablet Take 235 mg by mouth twice a day.Active ergocalciferol (Vitamin D-2) 1.25 MG (13359 Units) capsule Take 1 capsule by mouth 1 (one) time per week.Active droxidopa (Northera) 100 mg capsule Indications:Orthostatic hypotensionTake 1 capsule (100 mg) by mouth three times daily. 120 capsule tive sotalol (Betapace) 120 mg tablet Indications:Paroxysmal atrial fibrillation (CMS/HCC)Take 1 tablet (120 mg) by mouth every 12 (twelve) hours. 180 tablet ctive sotalol (Betapace) 120 mg tablet Indications:Paroxysmal atrial fibrillation (CMS/HCC)Take 1 tablet (120 mg) by mouth every 12 (twelve) hours. 60 tablet Discontinued(Reorder) Active Problems ProblemNoted DateDiagnosed DateAcquired absence of other specified parts of digestive tract01/19/2025Noninfective gastroenteritis and colitis, unspecified 01/19/2025History of excision of intestinal oacldjxbc15/25/2025bnormal ECG 04/08/2024OTS (postural orthostatic tachycardia syndrome)01/27/2024trial fibrillation with RVR1oronary artery disease involving united keetoowah coronary artery of united keetoowah heart08/22/20234241Lllvgmbzp04/28/2024Syncope and collapse 07/18/2023neurysm of ascending aorta without cbroapx3807/18/2023Sick sinus lkmfcxyt09/26/2024cute blood loss rznxqh03araesophageal avenxi76phasia1/ilateral partial vocal cord preasftef78/Muscle lipdfy79/H/O cardiac radiofrequency edmpvcvb71/11/2022History of CVA (cerebrovascular accident)12/24/2022resence of Watchman left atrial appendage closure device 10/19/2022 Assessment & Plan (10/19/2022 4:17 PM EDT): CHANTELLE from 04/10/2022 showing watchman implant in good position, no device leak noted and no thrombosis Atafjlt43/Idiopathic chronic gout of foot without tophus Osteoarthritis of left handaresthesia of bilateral legsStatus post right knee replacement alculus of dnblsl7810/01/2022ost-void btkxpvemh36/10/2023 Multifocal atrial lwfealpiesx24/10/5683Ahhuizem35/10/2023Low back pain05/01/2022 Tzdqnmsiwvppka55/10/2023enign prostatic hyperplasia with urinary obstruction 05/01/2022History of anesthesia eknbjsgzmmlbk01/04/6844Btbkyukyshiazk40/15/2022 Overview (03/06/2022): Pt is on synthroid after removal of thyroid for goiter Implantable loop recorder kiltmjb7902/27/2022Essential fkkiqkdisaqn83/17/2022 Assessment & Plan (10/19/2022 4:15 PM EDT): Hypertension is well controlled continue current med regime Coronary artery disease involving united keetoowah coronary artery of united keetoowah heart without angina cekmqdkd21/17/2022 Assessment & Plan (10/19/2022 4:15 PM EDT): Coronary artery disease is stable without concerning symptoms Continue GDMT continue risk factor modifications- heart healthy diet, regular exercise as tolerated and continue all medications. Recurrent falls02/05/2022History of TIA (transient ischemic attack)02/05/2022 Pancreatitis, puouchgja48/17/2022Metabolic syryovgj68/14/2022alculus of pgtrwigabgy22Non-intractable vomiting with ssukgi9701/01/2022 Lactic acid wulgnwce50/12/7416Zbuwnylz93/12/9940Hgvmszkocmvzw17/12/2022History of peptic ulcer01/01/2022 Overview (05/01/2022): S/p egd at [facility] 08/2020 History of kidney bexwor7501/01/2022KI (acute kidney injury)01/01/2022pnea 01/01/2022-fib12/29/2021 Overview (12/29/2021): Added automatically from request for surgery [id number] Assessment & Plan (10/19/2022 4:16 PM EDT): This post watchman implantation with CHANTELLE reviewed from 04/10/2022 showed watchman implant in good position with no thrombosis and no device leak Is on aspirin daily and to [place] him for rate control History of total myoyhscbfqetc57Meniere wgfwgzx8511/15/2020 Abnormal laboratory test irlydi5109/14/2020Vitamin B6 hwuzwuotjg90/25/2021Vitamin B12 deficiency (non anemic)09/13/20204594Falhnrsorcvide14/18/2021Chest pain 09/06/2020typical tyttwr6209/06/2020iverticulosis of small nqkuqgpmu61/02/2021 Qulwslmf50/19/9835Iqnnrmyxcqiaja90/09/5365Qvqixwmx64/10/2020OSA (obstructive sleep apnea)03/01/2020 Overview (05/01/2022): -chronic, on CPAP at home -stable -Continue CPAP while in hospital Chronic migraine without aura, with intractable migraine, so stated, with status jgifgbngkhn32typical kmxiiamp14/09/2020Expressive aphasia 01/23/2020Atrial ionqvzu9411/27/2019 Overview (04/28/2024): - S/p CTI ablation 11/2019- [facility] Esophageal ezrxfttxvkm68/01/2020 Overview (05/01/2022): - chronic - receiving home protonix, sucralfate Skin sensation zrlkkrqoasy19/07/2020Abnormal hriqybhorm24/10/2019Postoperative esukif6110/01/20189873Cieuoawdfahaairrfj01/12/1393Gebfstbnboqi00/12/2019Vocal cord palsy09/16/2018Shortness of vzinbl8909/16/20189666Rrcyaddycc77/28/2019Difficulty swallowing acnxau6909/03/2018Left ventricular ltorjsprjpx41/14/2019Disorder of autonomic nervous enxfvl1003/29/2018Ocular /28/2018Artificial knee joint bzkgcdq7411/09/2017Serous retinal divqbbgxin99/21/2018 Overview (05/01/2022): Added automatically from request for surgery [id number] Added automatically from request for surgery [id number] Added automatically from request for surgery [id number] Added automatically from request for surgery [id number] Nuclear sclerotic cataract, left10/07/2017 Overview (05/01/2022): Added automatically from request for surgery [id number] Added automatically from request for surgery [id number] Total retinal detachment of left eye10/07/2017 Overview (04/28/2024): Added automatically from request for surgery [id number] Gout05/20/2017Vitamin D lhuzmpahsz48/17/2017Restless leg05/08/2016 Overview (05/01/2022): - chronic - continue home mirapex TIA (transient ischemic attack)02/04/2016 Overview (05/01/2022): TIA 2017 - Patient with visual disturbances,m aphasia eveing of 12/13 and morning of 12/14-- 2CLOT activated - CT head 12/13/2020- no acute findings - EEG today, headache cocktail and brain MRI - Neurology following Chronic gouty oqsmlzebl02/15/2016History of acute renal ebmynov6702/04/2016 10/19/2022rthralgia of upper arm12/28/2015Localized, primary osteoarthritis of elbow12/18/20152751Uqcviljfoqw72/03/2016Acute renal failure juzkluvg97/03/2016Acute gastric ulcer06/23/2015Chronic kidney disease Overview (04/25/2022): stage 3 b Encounters DateTypeDepartmentCare TqncOzuyntvutra56/29/2025Telephone [facility] [address] [place] [address] Elana Zhang LPN 02/05/2025 3:00 PM EDTAncillary Procedure [facility] [address] [place] [address] Adjustment and management of cardiac refekfepw01/17/2025Orders Only [facility] [address] [place] [address] Perfecto Jordan MD 01/19/2025 3:00 PM EDTFollow-Up [facility] [address] [place] [address] Iram Shen, NEETU Other chest pain (Primary Dx); Orthostatic hypotension; Coronary artery disease of united keetoowah artery of united keetoowah heart with stable angina pectoris; Sick sinus syndrome (CMS/HCC); Autonomic dysfunction; Paroxysmal atrial fibrillation (CMS/HCC); Presence of Watchman left atrial appendage closure device; Exertional angina; Pacemaker; Aneurysm of ascending aorta without rupture; Neurogenic orthostatic hypotension (CMS/HCC); Chronotropic incompetence with autonomic /11/2025 10:45 AM EDT Office Visit [facility] [address] [place] [phone] Shukri Godwin MD Coronary artery disease of united keetoowah artery of united keetoowah heart with stable angina pectoris (Primary Dx); Exertional angina; Paroxysmal atrial fibrillation (CMS/HCC); Pacemakerfrom Last 3 Months Family History Medical HistoryRelationNameCommentsAortic aneurysmFatherFatherCancerFatherFather HypertensionFatherFatherCancerMotherMotherHypertensionMotherMotherStrokeMother MotherAortic aneurysmPaternal GrandfatherSudden deathNeg HxRelationNameStatus CommentsFatherFatherMotherMotherPaternal Grandfather Social History Tobacco UseTypesPacks/DayYears UsedDateSmoking Tobacco: GihjmuOpfthzpxfo994 1967 - 1983CigarsSmokeless Tobacco: FormerChewQuit: 1983 Tobacco Cessation:Counseling Given: Not Answered Alcohol UseStandard Drinks/WeekCommentsYes1 (1 standard drink = 0.6 oz pure alcohol)occasionalAHC UtilitiesAnswerDate RecordedIn the past 12 months has the [employer], gas, oil, or water [employer] threatened to shut off services in your home?No04/08/2024Humiliation, Afraid, Rape, and Kick questionnaireAnswerDate RecordedWithin the last year, have you been afraid of your partner or ex-partner?No04/08/2024Emotionally AbusedNot on file04/08/2024hysically Abused Not on file04/08/2024Sexually AbusedNot on file04/08/2024Overall Financial Resource Strain (CARDIA)AnswerDate RecordedHow hard is it for you to pay for the very basics like food, housing, medical care, and heating?Not hard at all 04/08/2024HQ-2AnswerDate RecordedPatient Health Questionnaire-2 Score0 06/17/2023UT Safety & EnvironmentAnswerDate RecordedWithin the last year, have you been afraid of your partner or ex-partner?No06/17/2023Within the last year, have you been humiliated or emotionally abused in other ways by your partner or ex-partner?No06/17/2023Within the last year, have you been kicked, hit, slapped, or otherwise physically hurt by your partner or ex-partner?06/17/2023Within the last year, have you been raped or forced to have any kind of sexual activity by your partner or ex-partner?No06/17/2023hysically or Sexually AbusedNot on file06/17/2023TransportationAnswerDate RecordedIn the past 12 months, has lack of transportation kept you from medical appointments or from getting medications?No04/08/2024Lack of Transportation (Non-Medical)Not on file 04/08/2024Housing Stability Vital SignAnswerDate RecordedIn the last 12 months, was there a time when you were not able to pay the mortgage or rent on time?No 04/08/2024Number of Times Moved in the Last YearNot on file04/08/2024t any time in the past 12 months, were you homeless or living in a snf (including now)? No04/08/2024Hunger Vital SignAnswerDate RecordedWithin the past 12 months, you worried that your food would run out before you got the money to buymore.Never true04/08/2024an Out of Food in the Last YearNot on file04/08/2024Sex and Gender InformationValueDate RecordedSex Assigned at UlrvyOknu99/18/2024 5:12 PM ESTLegal HifNpzq8810/18/2021 10:00 PM EDTGender WarmswpjYfyh43/18/2024 5:12 PM EST Sexual OrientationChoose not to dunadkmi27/18/2024 5:12 PM EST Last Filed Vital Signs Vital SignReadingTime TakenCommentsBlood Ugwijacu350/7909 3:07 PM EDT Fnlcf1963/30/2025 3:07 PM XUOBbqhydktzxa46.6 ??C (97.9 ??F)04/10/2024 8:27 AM ESTRespiratory Sdgt448106/11/2023 12:41 PM ESTOxygen Lrupyzpsaw83%01/19/2025 3:07 PM EDTInhaled Oxygen Concentration--Lmpahm717 kg (261 lb)01/19/2025 3:07 PM EDT Jsjfmj989.1 cm (6' 6 )01/19/2025 3:07 PM EDTBody Mass Index30.1609 3:07 PM EDT Plan of Treatment DateTypeDepartmentCare Team (Latest Contact Info)Heobdbrtotx81/26/2025 11:00 AM ESTOffice Visit [facility] [address] [place] [address] Iram Shen, SOLAR THERMAL INSTALLER [address] [place] [phone] Health MaintenanceDue DateLast DoneCommentsCT Mptltuotoexg51/30/1954Colonoscopy 1953olorectal Cancer Hrxpxbvbq62/30/1954FIT-DNA1953FIT1953 FOBT1953Medicare Annual Wellness (AWV)1955 8384Ymzyexzhfzmxt44/30/1954 Depression Ztohloelx11/30/1966Pneumococcal Vaccine: 50+ Years (1 of 2 - PCV) 1972Zoster Vaccines (1 of 2)2003Adult Zvehwgc28/11/2012 COVID-19 Vaccine ( season)/, 07/15/2020, 06/17/2020Influenza Vaccine (#1)/11/2015Fall Risk Screening HIB VaccinesAged OutNo longer eligible based on patient's age to complete this topicHPV VaccinesAged OutNo longer eligible based on patient's age to complete this topicIPV VaccinesAged OutNo longer eligible based on patient's age to complete this topicMeningococcal B VaccineAged OutNo longer eligible based on patient's age to complete this topicMeningococcal VaccineAged OutNo longer eligible based on patient's age to complete this topicRotavirus VaccinesAged OutNo longer eligible based on patient's age to complete this topic Medical Devices ImplantedTypeAreaManufacturerDevice IdentifierShelf Expiration DateModel / Serial / LotClosure,Flx,Watchman,Carey,24mm - [id number] - [id number] Implanted:Qty: 1 on 03/06/2022 [facility]Device[facility] [id number] / [id number] / [id number]: pt has a Watchman FLX device and Z-good Lux-Dx loop recorder- model M301- conditional for 3T and 1.5- most restrictive requirements 2500 G/cm- normal op mode- whole body GOOD 2 W/kg- LK 06/13/22M301 [id number] Implanted:11/09/2021 (Quantity not on file)Implantable Loop [id number] / [id number] / Description: pt has a Watchman FLX device and Z-good Lux-Dx loop recorder- model M301- conditional for 3T and 1.5- most restrictive requirements 2500 G/cm- normal op mode- whole body GOOD 2 W/kg- LK 06/13/22LeadJerome,S 60, - [id number] - [id number] Implanted:Qty: 1 on 07/09/2023 by [facility] [id number] / [id number] / Jerome Still S 53, - [id number] - [id number] Implanted:Qty: 1 on 07/09/2023 by [facility]ukri [facility] [id number] / [id number] / Amy Cabrera Dr-T - [id number] - [id number] Implanted:Qty: 1 on 07/09/2023 by [facility] Hospital[id number] / [id number] / ClipStomachDescription:Pt has a 2 Resolution clips in stomach- conditional for 3T and 1.5- max spatial gradient 2500 G/cm-normal op mode- whole body GOOD 2 W/kg- 15 mins scanning- LK 07/09/22 Procedures Procedure NamePriorityDate/TimeAssociated DiagnosisCommentsCARDIAC DEVICE CHECK CHECK - ZMIWGPOrqejcv88/21/2025 9:47 AM EDT Adjustment and management of cardiac pacemaker CARDIAC DEVICE CHECK - REMOTE - QJRWYAVGOAkgpsqe25/17/2025 12:00 AM EDTECG 12 LEAD UNIT LFCPNZALTHirxxyl66/01/2025 10:09 AM EDTfrom Last 3 Months Results * CARDIAC DEVICE CHECK - REMOTE - PACEMAKER (02/09/2025 9:47 AM EDT)Specimen (Source)Anatomical Location / LateralityCollection Method / VolumeCollection TimeReceived Time Narrative Authorizing ProviderResult TypeResult StatusPagurvinder Munozo MDCV IMPLANTABLE CARDIAC DEVICE PROCEDURESFinal ResultPerforming OrganizationAddressCity/State/ZIP Code Phone Number CPACS * Cardiac device check - Remote pacemaker (02/05/2025 12:00 AM EDT)Anatomical RegionLateralityModalityOtherSpecimen (Source)Anatomical Location / Laterality Collection Method / VolumeCollection TimeReceived Time02/05/2025 Narrative Authorizing ProviderResult TypeResult StatusPaul Julian MDCV IMPLANTABLE CARDIAC DEVICE PROCEDURESFinal Result * ECG 12 lead unit performed (01/20/2025 10:09 AM EDT)Specimen (Source) Anatomical Location / LateralityCollection Method / VolumeCollection Time Received Time Narrative Authorizing ProviderResult TypeResult StatusIram Shen CNPEC ORDERABLES Final Result from Last 3 Months Insurance Advance Directives * Full Code (Latest Code Status on File) Date ActivatedDate QsehqlivldvPjwxwuyo32/18/2024 7:20 PM04/10/2024 5:46 PM * Full Code Date ActivatedDate HgcnlsczhkxPonapzyu50/7/2024 7:21 PM10 6:35 PM * Full Code Date ActivatedDate InactivatedComments07/09/2023 2:35 PM07/09/2023 6:15 PM * Full Code Date ActivatedDate VelinaclcqqWoklqhme93/15/2022 5:25 PM03/07/2022 2:47 PM Care Teams Team MemberRelationshipSpecialtyStart DateEnd Date Radha Newton MD [facility]12/11/21
--- OUTSIDE RECORDS SUMMARY | 2025-03-15 09:38 | XMS_ITS | CCD ---
Author Organization [facility] CliniSyfl Care Team Providers Care Invasive Manager Name Role Phone CLAIR MATT Unavailable Unavailable RADHA BURRIS Unavailable Unavailable Chris Luong Unavailable Unavailable Fatuma, Ritu Unavailable Unavailable Terrell Her Unavailable Unavailable Terrell Her Unavailable Unavailable Lara Escobar Unavailable Unavailable Fatuma Ritu Unavailable Unavailable RADHA PRICE Primary Care Un available MAYELIN WOLFF Referring Unavailable Radha Price Primary Care Provi armando PROVIDER, UNKNOWN Attending Unavailable PROVIDER, UNKNOWN [...] Primary Care Unavailable JANET FORD Consulting Unavailable KOMMOORI, DARIELA Admitting Unavailable KOMMJEISONI, DARIELA Attending Unavailable KATHIE SEVERINO Referring Unavailable RADHA PRICE Primary Care Un available BHAVESH GUNTER Consulting Unavailable CANOS IV, MARIO YANIV Consulting Unavaila DUSTY Casillas Consulting Unavailable Radha Price MD Primary Care Pr ovider Radha Burris MD Primary Care Provider Esther Grey DO Unavailable Radha Burris Primary Care Provider Tucker VAZQUEZ Elian Caballero Unavailable Herminia Roland MD Unavailable MARKER, DR MARTIN Consulting Unavailable MARKER, DR MARTIN Attending Unavailable FATUMA, DR OCONNOR Primary Care Unavailable MARKER, DR MARTIN Admitting Unavailable AMOS RAMIREZ Consulting Unavailable FATUMA, DR OCONNOR Primary Care Unavailable CONCHA PHILLIPS Attending Unavailable MICHAEL, DR MAYELIN Lovell Consulting Unavailable CONCHA PHILLIPS Admitting Unavailable BLANCHE SEVERINO Consulting Unavailable DAVIE NARANJO Consulting Unavailable SAMANTHA, DR LEXI Power Attending Unavailsadaf e FATUMA, DR OCONNOR Primary Care Unavailable BLANCHE SEVERINO Consulting Unavailable SAMANTHA, DR LEXI Power Admitting Unavailsadaf Du, DR Gutierrez Consulting Unavailable [...] Unavailable YANDEL SHEN Consulting Unavailable SHAHNAZ, DR GARVEY Consulting Unavailable MOLATISHA, DR GARVEY Attending Unavailable MOLATISHA, DR GARVEY Admitting Unavailable FATUMA, DR OCONNOR Primary Care Unavailable VITALIY, YANDEL Consulting Unavailable VITALIY, YANDEL Attending Unavailable FATUMA, DR OCONNOR Primary Care Unavailable VITALIY, YANDLE Admitting Unavailable VITALIY, YANDEL Admitting Unavailable VITALIY, YANDEL Attending Unavailable FATUMA, DR OCONNOR Primary Care Unavailable MEMPHIS, DR SUAREZ Consulting Unavailable VITALIY, YANDEL Consulting Unavailable MOUKARBEL, DR GARVEY Consulting Unavailable MOUKARBEL, DR GARVEY Attending Unavailable FATUMA, DR OCONNOR Primary Care Unavailable MOUKARBEL, DR GARVEY Admitting Unavailable VITALIY, YANDEL Admitting Unavailable VITALIY, [...] Radha Mena Primary Care Unavail able Rika Curpaulina, Dr. Arabella Siddiqi Attending Unavailable Fatuma, Dr. Radah Mena Primary Care Unavail able Rika Butt, [...] Dr. Radha Mena Primary Care Unavail able April, Dr. Sy Attending Unavailable Sayon, Dr. Sy Referring Unavailable Fatuma, Dr. Radha Mena Primary Care Unavail able Sayvicky, Dr. Sy Attending Unavailable Sayon, Dr. Sy [...] Dr. Radha Mena Primary Care Unavail able Maroniajoshua, Dr. Ranjana Joiner Attending U navailable Aydin, [...] Dr. Radha Mena Primary Care Unavail able Sayvicky, Dr. Sy Admitting Unavailable Sayon, Dr. Sy Attending Unavailable Fatuma, Dr. Radha Mena Primary Care Unavail able Fatuma, Dr. Radha Mena Referring Unavail able Tucker VAZQUEZ, Elian K Unavailable Luan VAZQUEZ, Herminia Harini Unavailable Radha Burris MD Primary Care Provider YOSSI CHEN Attending Unavailable RADHA BURRIS Primary Care Unavailable RADHA BURRIS Primary Care Unavailable RADHA BURRIS Primary Care Unavailable Charlene Soria Unavailable MD Radha Rapp Primary Care Pr ovider MD Charlene Soria Attending Provider [phone] Fatuma VAZQUEZ, Radha Primary Care Provider Kargabriel DO, Esther Unavailable Radha Burris MD Unavailable Fatuma VAZQUEZ, Radha Primary Care Provider Karim DO, Esther Unavailable YOSSI CHEN Referring Unavailable RADHA BURRIS Primary Care Unavailable Radha Burris Primary Care Provider Donn Ceballos MD Unavailable Unavailable Donn Ceballos Attending Unavailable Radha Burris Referring Unavailable Radha Burris Primary Care Unavailable Lin VAZQUEZ, Donn Unavailable Unavailable Lin VAZQUEZ, Donn Unavailable Unavailable Radha Burris MD Unavailable [phone] Shashi Pina DO Unavailable RADHA BURRIS Primary Care Physician Lalito Miller Admitting Unavailable Bibushra, Lalito Hill Attending Unavailable Lalito Miller Referring Unavailable Shashi Pina DO Unavailable Lalito Miller Referring Unavailable Bicamdenengalo, Lalito S Admitting Unavailable Bicamdenengalo, Lalito S Attending Unavailable Dayton, Lalito S Referring Unavailable Dayton, Lalito Hill Admitting Unavailable Dayton, Lalito Hill Attending Unavailable Devonte Pina DOer Unavailable [phone] Shashi Pina DO Unavailable Radha Burris MD Primary Care Provider ELEONORA LEO Attending Unavailab SHASHI Simpson Attending Unavailable ELEONORA LEO Referring Unavailab LATOYA Maynard Attending Unavailable AHMET, ELEONORA Levi Referring Unavailab LATOYA Maynard Attending Unavailable SHASHI PINA Attending Unavailable RADHA BURRIS Attending Unavailable RADHA BURRIS Referring Unavailable KAMSHIVANI ARROYO Attending Unavailable DAYTON, LALITO Hill Attending Unavailable FATUMA, RADHA Referring Unavailable BIBUSHRA, LALITO Hill Attending Unavailable DAYTON, LALITO Hill Attending Unavailable BIEDENGALO, LALITO Hill Attending Unavailable KAMPSHIVANI STEVENS Attending Unavailable RADHA BURRIS Attending Unavailable SOFIA VIGIL Attending Unavailab RADHA Pérez Attending Unavailable Radha Rapp MD Primary Care Pr ovider Maryann Armstrong MD Attending Provider Radha Rapp Primary Care Un available Maryann Armstrong Attending Unavailable Maryann Armstrong Admitting Unavailable ABBY BERNSTEIN Referring Unavailable ABBY BERNSTEIN Attending Unavailable RADHA BURRIS Primary Care Unavailable ABBY BERNSTEIN Referring Unavailable RADHA BURRIS Primary Care Unavailable SHELDON HUDSON Attending Unavailable ABBY BERNSTEIN M Referring Unavailable RADHA BURRIS Primary Care Unavailable ABBY BERNSTEIN M Attending Unavailable RADHA BURRIS Primary Care Unavailable MARÍA PEARL Referring Unavailable Radha Burris MD Unavailable [phone] Radha Burris MD Unavailable [phone] Shashi Pina DO Unavailable SYD MCGREGOR Referring Unavailable MAMEKAYLIEIR Attending Unavailable SHASHI PINA Referring Unavailable LALITO JOSHI Referring Unavailable MAMEMARQUITA Attending Unavailable MAMEKAYLIEIR Referring Unavailable MAME, MARQUITA Attending Unavailable VITALIY, YANDEL Attending Unavailable VITALIY, YANDEL Attending Unavailable VITALIY, YANDEL Attending Unavailable MADELYN, LALITO Referring Unavailable MADELYN, LALTIO Referring Unavailable HUNTER, HANI Referring Unavailable FELIZ, MARGO Referring Unavailable FELIZ, MARGO Referring Unavailable ALGHOTHANI, MOHAMAD Referring Unavailable HUNTER, HANI Referring Unavailable HORANI, MIGUEL Admitting Unavailable HUNTER, HANI Attending Unavailable ALGHOTHANI, MOHAMAD Referring Unavailable HUNTER, HANI Referring Unavailable Allergies Allergy ClassificationReported Allergen(s)Allergy TypeDate of OnsetReaction(s) Facility (20 sources)Amoxicillin; Translations: [amoxicillin]Drug Wajbbqv19-75-3390 [facility] (20 sources)Penicillins; Translations: [Penicillins]drug -99-4194Qnzr [facility] (20 sources)Penicillin; Translations: [PENICILLIN]Drug Twhbuds51-50-8978Rswoimg (qualifier value)[facility] ([facility] source)PenicillinDrug Froaqyp08-04-2452Nxs[facility] (20 sources)dofetilide; Translations: [Tikosyn CAPS]Drug Xmrnigm54-97-1454Xaycw: See Comments, UnknownB[facility] (20 sources)PenicillinsPropensity to adverse reactions to drqh13-56-0197Ktnuxjs, OtherMet[facility] Work Phone: (20 sources)PenicillinsDrug Pjrkdzs68-08-1200PtyhtctMgtnpjfoj Clinic Work Phone: (3 sources)dofetilide; Translations: [Tikosyn]Drug Zvtinau36-72-6283Ghf [facility] Repository (1 source)PenicillinsDrug allergy (disorder)61-83-7713Yeh [facility] Repository (11 sources)Vancomycin; Translations: [vancomycin]Drug Eqssonm33-19-8100DizxvTsw [facility] Repository (20 sources)Vancomycin; Translations: [Vancomycin HCl CAPS]Drug Allergy 13-89-0758Mygjtnptyon, Itching, RashMer[facility] (8 sources)Vancomycin HCl in Dextrose SOLN; Translations: [Vancomycin HCl in Dextrose SOLN]Allergy to drug (finding)OE-Gaykyfdzhecxcs-Fyinifq Work Phone: (7 sources)Vancomycin; Translations: [VANCOMYCIN HCL]Drug Ogvnumg29-24-5602 [facility] Work Phone: (7 sources)Vancomycin Hcl In Water; Translations: [VANCOMYCIN HCL IN WATER] Propensity to adverse qicvufamz36-91-8639QazxrxjYweskmzkoz [facility] Work Phone: (20 sources)dofetilideDrug Hghcojj46-03-3832Mojcdehqr, [facility] (4 sources)PenicillinsDrug Thtfgjb71-79-4019LnvmbhkLepteribp Clinic Work Phone: (1 source)dofetilideDrug Kiasmcm81-09-2211FqzcxsrcrUniversity [facility] Rep[facility] (1 source)PenicillinsDrug allergy (disorder)59-30-5044OegbjawbwUniversity Hospitals [facility] Repository (1 source)VancomycinDrug Pfwyugr46-24-7717YhpnmcorzUniversity Hospitals [facility] Repository Medications Current Medications MedicationDrug Class(es)DatesSig (Normalized)Sig (Original)acetaminophen 325 mg / HYDROcodone bitartrate 5 mg oral tablet (1 source)Opioid AgonistStart: 10-07-2024 End: 30-58-6945xdog 1 tablet by mouth every four hours for painNorco 325 mg-5 mg oral tablet 1 tab(s), Oral, q4hr for pain for 7 day(s), 24 tab(s), Refill(s) 0, [facility], 198, cm, 09/26/24 9:24:00 EDT, Height/Length Dosing, 115, kg, 09/26/24 9:24:00EDT, Weight Dosing Start Date: 10/07/24 Stop Date: 10/14/24 Status: Ordered Quantity: 24.0 Unit: tab(s) Repeat number: 1 Indications: Other acute postprocedural pain;Ascorbic Acid / POLYETHYLENE GLYCOL 3350 / Potassium Chloride / Sodium Ascorbate / Sodium Chloride / sodium sulfate (9 sources)Osmotic Laxative, Vitamin CStart: 02-17-2024 End: 58-99-5666ZMW-XNt-QjHe-FmKdfs-Na Asc-C (Plenvu) 140 g reconstituted solution MLSDIRECTED Orally ASDIRECTED for 2 days 02/17/2024 06/09/2024 Discontinued (Therapy completed)Start: 58-84-8768ETU-QHc-UyXs-AsLrjb-Na Asc-C (Plenvu) 140 g reconstituted solution MLSDIRECTED Orally ASDIRECTED for 2 days 02/17/2024 Activeaspirin 81 mg delayed release oral tablet (16 sources)Platelet Aggregation Inhibitor, Nonsteroidal Anti-inflammatory Drug take 1 tablet by mouth once dailyaspirin, enteric coated (ASPIRIN, ENTERIC COATED) 81 mg EC tablet Take 81 mg by mouth once daily. ActiveComment on above: Take 81 mg by mouth once daily.bisacodyl 5 mg delayed release oral tablet (9 sources)Stimulant LaxativeStart: 02-17-2024 End: 01-88-4332jmquqfuob (Dulcolax) 5 MG EC tablet 1 (one) time each day at the same time 02/17/2024 06/09/2024 Discontinued (Therapy completed)budesonide 3 mg delayed release oral capsule (5 sources)CorticosteroidStart: 95-57-3136ggwz 3 tablets by mouth once daily, then take 2 tablets by mouth once daily, then take 1 tablet by mouth once daily Start: 33-90-3338Pixrncknkt 3 MG 3 tabs daily for 60 days, 2 tabs daily for 14 days, 1 tab daily for 14 days Orally Once a day for 90 days Apr, Active calcitriol 0.74595 mg oral capsule (20 sources)Vitamin D3 AnalogStart: 00-34-8470okbv 2 capsules by mouth once daily in the eveningcalcitriol 0.25 mcg Cap 0.5 mcg = 2 cap(s), Oral, qPM, Refills(s) 0 Start Date: 09/13/20 Status: Ordered Repeat number: 1Start: 01-15-2020 End: 93-29-7075ohph 1 capsule by mouth once daily in the eveningCalcitriol 0.25 mcg capsule Discontinued 0.25 MCG PO Every evening July 01, 2020 1:00am 2022 1:19pmStart: 01-15-2020 End: 38-37-3840kosh 2 capsules by mouth once dailycalcitriol (ROCALTROL) 0.25 mcg capsule Take 2 capsules by mouth once daily. 01/15/2020 05/04/2021 D iscontinued (Discontinued by another Health Care Provider)Start: 09-25-2018 End: 20-16-7632nreu 1 capsule by mouth twice dailyCalcitriol (Rocaltrol) 0.25 mcg Capsule Discontinued 0.25 MCG PO Twice daily 60 30 September 25, 2018 8:45am July 01, 2020 3:33pmCalcitriol 0.25 MCG Oral Capsule Quantity: 0 Refills: 0 Ordered: 29-Jun-2019 DO ActiveCalcitriol ActiveComment on above:Take 0.25 mcg by mouth once daily.Calcium (20 sources)Phosphate Binder, CalciumCALCIUM ORAL Take by mouth. ActiveCalcium TABS Quantity: 0 Refills: 0 Ordered: 29-Jun-2019 DO ActiveCALCIUM ORAL Take by mouth. 0 ActiveCalcium ActiveCalcium TABS Refills: 0 Activecalcium carbonate 1250 mg oral tablet (20 sources)Start: 41-90-2913gkwu 1 tablet by mouth once dailyStart: 05-22-2022 take 1 tablet by mouth twice daily at mealtimecalcium carbonate (Oscal) 500 mg calcium (1,250 mg) tablet Take 1 tablet (1,250 mg) by mouth 2 times a day with meals. 0 05/22/2022 ActiveStart: 80-95-7325whea 1 tablet by mouth twice daily at mealtimeOyster Shell Calcium 500 MG Oral Tablet TAKE 1 TABLET BY MOUTH TWICE DAILY WITH MEALS Quantity: 180Refills: 0 Ordered: 22-May-2022 DO Start : 10-Jan-2022 Activecalcium carbonate (Os-Atilio) 1250 (500 Ca) MG chewable tablet Chew 1 tablet in the morning. Activetake 1 tablet by mouth once dailycalcium carbonate 500 mg calcium (1,250 mg) chewable tablet Take 1 tablet by mouth once daily. ActiveComment on above:Take 1 tablet by mouth once daily.cholestyramine resin 4000 mg powder for oral suspension (16 sources)Bile Acid SequestrantStart: 02-18-2024 End: 12-62-7158oheploslockpkd (Questran) 4 g packet MIX 1 PACKET WITH WATER OR NON-CARBONATED DRINK AND DRINK ONCEA DAY. 02/18/2024 06/09/2024 Discontinued (Therapy completed)Start: 41-41-2542Nqomwygdpmwiqr 4 GM/DOSE 1 scoop Orally Once a day for 30 days Feb, ActiveStart: 63-65-8992Kmenphnhvjrcef 4 GM/DOSE 1 scoop Orally Once a day for 30 days Feb, Activeclindamycin 300 mg oral capsule (5 sources)Lincosamide AntibacterialStart: 08-21-2024 End: 22-58-3585hdds 1 capsule by mouth in the morning, then take 1 capsule by mouth in the evening, then take 1 capsule by mouth at bedtimeclindamycin (Cleocin) 300 MG capsule Indications: Dental infection Take 1 capsule (300 mg) by mouthin the morning and 1 capsule (300 mg) in the evening and 1 capsule (300 mg) before bedtime. Do all this for 10 days. 30 capsule 08/21/2024 08/31/2024 ActiveStart: 51-79-4797lzqq 2 capsules by mouth twice dailyclindamycin (CLEOCIN) 300 MG capsule Take 2 Capsules by mouth 2 times daily. 28 Capsule 0 01/27/2020 Activeclopidogrel 75 mg oral tablet (19 sources)P2Y12 Platelet InhibitorStart: 39-11-4391kldzztfkmst (Plavix) 75 mg tablet Take by mouth. 0 07/28/2022 Active End: 08-91-4685Wllzli 75 MG Oral Tablet Quantity: 0 Refills: 0 Ordered: 25-Sep-2022 DO End : 25-Sep-2022 CompletePlavix 75 MG Oral Tablet Quantity: 0 Refills: 0 Ordered: 17-Jul-2022 DO ActiveComment on above:Take 1 tablet by mouth once daily.clotrimazole 10 mg/ml topical cream (7 sources)Azole AntifungalStart: 01-13-2024 End: 96-38-9098ckzdtbkrkgaz (Lotrimin) 1 % cream Indications: Dermatitis Apply topically 2 (two) times a day 60 g 1 01/13/2024 02/06/2024 Discontinued (Therapy completed)dexamethasone (DECADRON) 40 mg in sodium chloride 0.9 % 100 mL IVPB (1 source)Start: 08-49-7955hwwveeaskcsfu (DECADRON) 40 mg in sodium chloride 0.9 % 100 mL IVPBdoxycycline hyclate 100 mg oral tablet (12 sources)Tetracycline-class DrugStart: 09-02-2024 End: 39-53-4036bawk 1 tablet by mouth in the morningdoxycycline (Vibra-Tabs) 100 MG tablet Indications: Acute non-recurrent maxillary sinusitis Take 1 tablet (100 mg) by mouth in the morning and 1 tablet (100 mg) before bedtime. Take with a full glassof water and do not lie down for at least 30 minutes after. 60 tablet 09/08/2024 10/08/2024 ActiveStart: 59-46-2428fion 1 capsule by mouth twice dailydoxycycline hyclate 100 mg Cap 100 mg = 1 cap(s), Oral, BID, Refills(s) 0 Start Date: 09/13/20 Status: Ordered Repeat number: 1ERENUMAB-AOOE SUBQ (2 sources)ERENUMAB-AOOE SUBQ Inject under the skin. 0 Activeergocalciferol 1.25 mg oral capsule (20 sources)Provitamin D2 CompoundStart: 08-10-2024 End: 91-05-9489pulw 1 capsule by mouth every weekergocalciferol (Vitamin D2) 1.25 MG (76683 UT) capsule Indications: Hypocalcemia Take 1 capsule by mouth once a week 12 capsule 1 12/29/2024 ActiveStart: 53-65-0957nxco 1 capsule by mouth every weekergocalciferol (Vitamin D-2) 1.25 MG (21171 UT) capsule Take 1 capsule (1,250 mcg) by mouth 1 (one)time per week. 0 10/08/2022 ActiveStart: 01-10-2022 End: 66-61-7381smsg 1 capsule by mouth every weekVitamin D (Ergocalciferol) 1.25 MG (61726 UT) Oral Capsule TAKE 1 CAPSULE BY MOUTH ONCE A WEEK Quantity: 12 Refills: 0 Ordered: 17-Jul-2022 DO Start : 10-Jan-2022 ActiveVitamin D2 Active Comment on above:Take 50,000 Units by mouth one time a week.fluconazole 100 mg oral tablet (4 sources)Azole AntifungalStart: 31-77-7665aiik 1 tablet by mouth once daily fluconazole (DIFLUCAN) 100 MG tablet Take 1 Tablet by mouth daily. 14 Tablet 1 01/27/2020 ActiveHYDROmorphone (DILAUDID) injection 0.25 mg (2 sources)Start: 29-25-8756ULBWLnoovzdgp (DILAUDID) injection 0.25 mgStart: 12-31-2021 End: 14-77-3008KLYYLziwkdnhv (DILAUDID) injection 0.25 mg24 hr isosorbide mononitrate 30 mg extended release oral tablet (20 sources)Nitrate VasodilatorStart: 07-01-2020 End: 32-50-5345wbjp 1 tablet by mouth once daily, then take 1 tablet by mouth every twenty-four hoursIsosorbide Mononitrate 60 mg Tablet Extended Release 24 Hr Discontinued 60 MG PO Daily July 01, 2020 1:00am April 12, 2023 1:19pmStart: 12-02-2019 End: 09-87-1540jxwu 1 tablet by mouth in the morning, then take 1 tablet by mouth every twenty-four hoursisosorbide mononitrate ER (Imdur) 30 MG 24 hr tablet Take 30 mg by mouth in the morning. ActiveIsosorbide Mononitrate Not-Taking/PRNIsosorbide Mononitrate Not-Takinglevothyroxine sodium 0.175 mg oral tablet (20 sources)l-ThyroxineStart: 45-95-5002kdmn 1 tablet by mouth three times weeklylevothyroxine (Synthroid) 175 MCG tablet Indications: Acquired hypothyroidism Take 1 tablet (175 mcg) by mouth 3 (three) times a week Take on an empty stomach 36 tablet 12/30/2024 ActiveStart: 46-15-7116ileg 1 tablet by mouth three times weeklylevothyroxine (Synthroid) 175 MCG tablet Indications: Acquired hypothyroidism Take 1 tablet (175 mcg) by mouth 3 (three) times a week Take on an empty stomach 36 tablet 12/30/2024 ActiveStart: 11-18-2024 End: 42-99-3617abrh 1 tablet by mouth three times weeklylevothyroxine (Synthroid) 175 MCG tablet Indications: Acquired hypothyroidism Take 1 tablet (175 mcg) by mouth 3 (three) times a week Take on an empty stomach 36 tablet 11/18/2024 12/29/2024 Discontinued (Reorder)Start: 47-05-2015mxjd 1 tablet by mouth every other daylevothyroxine 175 mcg (0.175 mg) Tab 175 mcg = 1 tab(s), Oral, Every other day, Refills(s) 0 Start Date: 09/25/24 Status: Ordered Repeat number: 1Start: 56-64-9545tnto 1 tablet by mouth three times weeklylevothyroxine (Synthroid) 175 MCG tablet Indications: Acquired hypothyroidism Take 1 tablet (175 mcg) by mouth 3 (three) times a week Take on an empty stomach 36 tablet 09/02/2024 ActiveStart: 06-11-2024 End: 60-90-4057qhry 1 tablet by mouth four times weeklylevothyroxine (Synthroid, Levoxyl) 150 MCG tablet Indications: Acquired hypothyroidism TAKE 1 TABLET BY MOUTH FOUR TIMES A WEEK TAKE ON AN EMPTY STOMACH 48 tablet 12/29/2024 Active Start: 42-35-0320ujgn 1 tablet by mouth four times weeklylevothyroxine (Synthroid) 150 MCG tablet Indications: Acquired hypothyroidism (CMS/HCC) Take 1 tablet (150 mcg) by mouth 4 (four) times a week Take on an empty stomach 48 tablet 06/11/2024 ActiveStart: 43-47-6595ihnr 1 tablet by mouth three times weeklylevothyroxine (Synthroid) 175 MCG tablet Indications: Acquired hypothyroidism (CMS/HCC) Take 1 tablet (175 mcg) by mouth 3 (three) times a week Take on an empty stomach 36 tablet 06/10/2024 ActiveStart: 11-04-2023 End: 58-72-2825aaoj 1 tablet by mouth before mealtimelevothyroxine (Synthroid) 150 MCG tablet Indications: Acquired hypothyroidism (CMS/HCC) Take 1 tablet (150 mcg) by mouth in the morning. Take before meals. 90 tablet 05/19/2024 06/10/2024 Discontinued (Reorder)Start: 03-73-9682fely 1 tablet by mouth before mealtime levothyroxine (Synthroid) 200 MCG tablet Indications: 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, unspecified type (CMS/HCC) Take 1 tablet (200 mcg) by mouth in the morning. Take before meals. 90 tablet 3 04/23/2023 ActiveStart: 63-42-3540ykye 150 ug by mouth once rxhav251 mcg, Oral, DAILY, First dose on Sat01/03/22 at 0900, Until Discontinued Tube feeding (TF) interaction, obtain physician order to manage, recommend holding TF for 30 minutes before and after dose.Start: 18-96-6044kfdq 1 tablet by mouth once daily before breakfastlevothyroxine (LEVOXYL) 175 mcg tablet Take 1 tablet by mouth daily before breakfast. 12/15/2020 ActiveStart: 46-72-0704lopq 1 tablet by mouth every other daylevothyroxine 150 mcg (0.15 mg) Tab 150 mcg = 1 tab(s), Oral, Every other day, Refills(s) 0 Start Date: 09/13/20 Status: Ordered Repeat number: 1Start: 07-01-2020 End: 58-39-0683wscm 125 ug by mouth once dailyLevothyroxine Discontinued 25 MCG PO Daily July 01, 2020 12:00am April 12, 2023 12:19pm takes with 125mcg dose for 150mcg dailyStart: 01-15-2020 End: 53-07-6238qxoc 5 tablets by mouth once dailyLevothyroxine 25 mcg tablet Discontinued 25 MCG PO Daily July 01, 2020 1:00am April 12, 2023 1:19pm takes with 125mcg dose for 150mcg dailyStart: 41-19-8816lekeoehmtyqim (Synthroid, Levoxyl) 25 mcg tablet Take by mouth. 0 01/15/2020 ActiveStart: 07-90-9204tbas 1 tablet by mouth once daily at bedtimelevothyroxine (Synthroid, Levoxyl) 125 mcg tablet Take 1 tablet (125 mcg) by mouth once daily at bedtime. REPEAT TSH in FOUR WEEKS 0 11/06/2019 ActiveStart: 05-02-2018 End: 20-97-5683Jjojp: 88-71-9927ylcu 25 ug by mouth once dailyLevothyroxine Active 175 MCG PO Daily May 02, 2018 12:00am takes with 25mcg for 150mcg dosetake 1 tablet by mouth once daily before breakfastlevothyroxine (SYNTHROID) 150 mcg tablet Take 150 mcg by mouth daily before breakfast. Activetake 1 tablet by mouth once daily in the morningSynthroid 175 MCG 1 tablet on an empty stomach in the morning Orally Once a day for 90 days ActiveLevothyroxine Sodium 175 MCG Oral Tablet Quantity: 0 Refills: 0 Ordered: 17-Jul-2022 DO ActiveLevothyroxine Sodium 150 MCG Oral Capsule Quantity: 0 Refills: 0 Ordered: 17-Jul-2022 DO Activetake 1 tablet by mouth once daily in the morningSynthroid 150 MCG 1 tablet on an empty stomach in the morning Orally Once a day for 90 days ActiveComment on above:Take 1 tablet by mouth daily before breakfast.lisinopril 5 mg oral tablet (3 sources)Angiotensin Converting Enzyme InhibitorStart: 68-04-5332dryb 1 tablet by mouth once dailylisinopril (ZESTRIL) 5 MG tablet TAKE 1 TABLET BY MOUTH DAILY. 90 Tablet 3 01/15/2020 Activemagnesium citrate 58.2 mg/ml oral solution (20 sources)take 296 mL by mouth once dailymagnesium citrate solution Take 296 mL by mouth Daily Activemagnesium lactate 84 mg extended release oral tablet (6 sources)take 1 tablet by mouth once dailymagnesium lactate CR (Magtab) 84 MG (7MEQ) ER tablet Take 84 mg by mouth Daily Activemagnesium oxide 250 mg oral tablet (6 sources)Start: 07-35-8679axcx 250 mg by mouth once dailymagnesium oxide 250 mg, Oral, Daily, Refills(s) 0 Start Date: 09/25/24 Status: Ordered Repeat number:1 magnesium oxide (MAG-OX) 400 mg (241.3 mg magnesium) tablet Take 235 mg by mouth two times a day. Activemagnesium sulfate 4 g, lidocaine (cardiac) (XYLOCAINE) 100 mg in sodium chloride 0.9 % 250 mL IVPB (1 source)Start: 22-20-4963kjykexbge sulfate 4 g, lidocaine (cardiac) (XYLOCAINE) 100 mg in sodium chloride 0.9 % 250 mL IVPBmetoprolol tartrate 25 mg oral tablet (20 sources)beta-Adrenergic BlockerStart: 39-17-3217ucvdhjvmzl tartrate (Lopressor) 25 MG tablet Take 12.5 mg by mouth in the morning and 12.5 mg before bedtime. Per cardio Dr Vilchis. 07/24/2023 ActiveStart: 02-01-2021 End: 95-16-7954gumu 0.5 tablet by mouth twice dailymetoprolol tartrate, short acting, (LOPRESSOR) 25 mg tablet Take 0.5 tablets by mouth twice daily. 60 tablet 5 02/01/2021 05/04/2021 Discontinued (Discontinued by another Health Care Provider)Start: 07-01-2020 End: 09-98-8454juob 1 tablet by mouth twice dailyMetoprolol Tartrate 75 mg Tablet Discontinued 75 MG PO Twice daily July 01, 2020 1:00am 2022 1:19pmStart: 43-71-0114edrqlbrbrn (LOPRESSOR) 25 MG tablet 02/08/2020 ActiveStart: 23-33-2718pjkq 1 tablet by mouth once dailymetoprolol (TOPROL-XL) 25 mg XL tablet TAKE 1 TABLET BY MOUTH DAILY. 30 Tablet 3 01/15/2020 Active Metoprolol Tartrate Not-Taking/PRNtake 1 tablet by mouth every twenty-four hours metoprolol succinate XL (Toprol-XL) 25 mg 24 hr tablet Take by mouth. 0 Active Metoprolol Tartrate Not-TakingmetroNIDAZOLE 500 mg oral tablet (15 sources)Nitroimidazole AntimicrobialStart: 09-22-2024 End: 97-93-6129WgeidOJDGHMNH 500 mg Tab 500 mg = 1 tab(s), Refills(s) 0 Start Date: 09/25/24 Status: Ordered Repeat number: 1Start: 09-08-2024 End: 11-22-9898wilm 1 tablet by mouth in the morning, then take 1 tablet by mouth in the evening, then take 1 tablet by mouth at bedtimemetroNIDAZOLE (Flagyl) 500 MG tablet Indications: Acute non-recurrent maxillary sinusitis Take 1 tablet (500 mg) by mouth in the morning and 1 tablet (500 mg) in the evening and 1 tablet (500 mg) before bedtime. Do all this for 10 days. 30 tablet 09/08/2024 09/18/2024 ActiveStart: 92-71-2833xoejpTQLMZZSX 500 MG Oral Tablet Quantity: 6 Refills: 0 Ordered: 05-Jan-2022 DO Start : 98-Qqy-2308XqteadLxlje: 01-03-2022 End: 65-94-8876877 mg, Oral, EVERY 8 HOURS SCHEDULED (3 times per day), 15 doses, First dose on Sat01/03/22 at 2100, Last dose on Sat01/08/22 at 1400 Antimicrobial Indications: Other Other Abx Indication: acute infected cholecystitisStart: 01-03-2022 End: 56-40-0522zsfh 1 tablet by mouth every eight hoursmetroNIDAZOLE (FLAGYL) 500 MG tablet Take 1 tablet by mouth every 8 hours for 2 days 6 tablet 0 12/2101/07/2022 ActiveStart: 01-02-2022 End: 27-07-2754804 mg, IntraVENous, EVERY 8 HOURS, 3 doses, First dose on Sat01/02/22 at 1530, Last dose on Sat01/03/22 at 0730 Antimicrobial Indications: Surgical Prophylaxismidodrine hydrochloride 5 mg oral tablet (20 sources)alpha-Adrenergic AgonistStart: 70-39-2397kfie 1 tablet by mouth three times dailymidodrine (PROAMITINE) 5 mg tablet Take 5 mg by mouth three times a day. 11/03/2024 ActiveStart: 87-97-1619lfrl 1 tablet by mouth once daily midodrine 5 mg Tab 5 mg = 1 tab(s), Oral, Daily, Refills(s) 0 Start Date: 09/25/24 Status: Ordered Repeat number: 1Start: 03-11-2024 End: 16-64-5779fvlpykbpk (Proamatine) 5 MG tablet Take 5 mg by mouth in the morning and 5 mg at noon and 5 mg in the evening. 03/11/2024 07/09/2024 Active mometasone furoate 0.001 mg/mg topical ointment (15 sources)CorticosteroidStart: 02-06-2024 End: 56-29-0356atgejintzn (Elocon) 0.1 % ointment Indications: Dermatitis Apply topically Daily 45 g 02/06/2024 06/09/2024 Discontinued (Therapy completed) nitrofurantoin, macrocrystals 25 mg / nitrofurantoin, monohydrate 75 mg oral capsule (4 sources)Nitrofuran AntibacterialStart: 42-54-4777eoroynbwbqqpnp monohydrate macrocrystal (MACROBID) 100 MG capsule 01/22/2020 Activenitroglycerin 0.4 mg sublingual tablet (20 sources)Nitrate VasodilatorStart: 47-44-9804cikzlautkgwid (Nitrostat) 0.4 MG SL tablet Indications: Atypical angina DISSOLVE ONE TABLET UNDER THE TONGUE EVERY 5 MINUTES NEEDED FOR CHEST PAIN. 75 tablet 07/06/2024 ActiveStart: 02-06-2024 End: 12-13-5609hiqbcahwhhbbk (Nitrostat) 0.4 MG SL tablet Indications: Atypical angina (CMS/HCC) Place 1 tablet (0.4 mg) under the tongue every 5 (five) minutes if needed for chest pain 90 tablet 02/06/2024 ActiveComment on above:Dissolve 0.4 mg under the tongue every 5 minutes as needed.nystatin 100 unt/mg topical powder (4 sources)Polyene AntifungalStart: 97-35-8829ugutsdph (MYCOSTATIN) 100,000 unit/g powder Apply topically 3 times daily. 45 g 1 01/27/2020 Activeomeprazole 20 mg delayed release oral capsule (20 sources)Proton Pump InhibitorStart: 07-17-2022 End: 74-80-8285rvkf 1 capsule by mouth once daily at dinneromeprazole (PriLOSEC) [address] capsule Take 1 capsule (20 mg) by mouth once daily. Take 30 minutes p rior to dinner 0 10/09/2022 ActiveStart: 68-11-1980idqc 1 capsule by mouth at dinnerOmeprazole 20 MG Oral Capsule Delayed Release TAKE 1 CAPSULE BY MOUTH 30 MINUTES PRIOR TO DINNER Quantity: 30 Refills: 0 Ordered: 08-Oct-2022 Ranjana Perrin MD Start : 17-Jul-2022 ActiveStart: 07-01-2020 End: 53-77-0042hvsu 1 capsule by mouth twice dailyOmeprazole 40 mg capsule,delayed release(DR/EC) Discontinued 40 MG PO Twice daily July 02, 2020 1:00am April 12, 2023 1:19pmStart: 00-26-9946mmjz 1 capsule by mouth once dailyomeprazole (PRILOSEC) 40 MG capsule TAKE 1 CAPSULE BY MOUTH DAILY. 30 Capsule 0 01/15/2020 ActiveOmeprazole Not-Taking/PRN End: 88-41-3614vdyuzkklnu (PRILOSEC) 20 mg capsule Take 40 mg by mouth. 0 05/31/2022 Discontinued (Discontinued byanother Health Care Provider)Omeprazole Not-TakingComment on above:Take 40 mg by mouth.Take 20 mg by mouth once daily. ondansetron (ZOFRAN-ODT) disintegrating tablet 4 mg (1 source)Start: 14-08-5429xxnfyvavabg (ZOFRAN-ODT) disintegrating tablet 4 mg permethrin 50 mg/ml topical cream (10 sources)PyrethroidStart: 02-10-2024 End: 94-51-0877zxvjybdwpu (Elimite) 5 % cream Indications: Dermatitis apply to skin from hairline to toes and washoff 8-10 hours later 60 g 02/10/2024 06/09/2024 Discontinued (Therapy completed)polyethylene glycol 3350 395903 mg / potassium chloride 2970 mg / sodium bicarbonate 6740 mg / sodium chloride 5860 mg / sodium sulfate 18154 mg powder for oral solution (7 sources)Osmotic LaxativeStart: 75-72-4086ujze 4000 mL by mouth onceGolytely 236 GM 4,000 ML Orally once for Feb, Activepramipexole dihydrochloride 1 mg oral tablet (20 sources)Nonergot Dopamine AgonistStart: 04-23-2024 End: 01-27-2673dhem 1 tablet by mouth at bedtimepramipexole (Mirapex) 1 MG tablet Indications: Restless leg Take 1 tablet (1 mg) by mouth at bedtime 90 tablet 3 04/23/2024 04/23/2025 ActiveStart: 05-02-2018 End: 73-30-4972jlpd 2 tablets by mouth once daily in the eveningpramipexole 1 mg Tab 2 mg = 2 tab(s), Oral, qPM, # 90 tab(s), Refills(s) 0 Start Date: 09/13/20 Status: Ordered Quantity: 90.0 Unit: tab(s) Repeat number: 1Start: 05-02-2018 End: 53-11-2628ixbe 2 mg by mouth at bedtimePramipexole Discontinued 2 MG PO Bedtime May 02, 2018 12:00am April 12, 2023 12:19pmMirapex 1 MG TABS TAKE 1 TABLET TWICE DAILY. Quantity: 0 Refills: 0 Ordered: 03-Mar-2019 DO Active Comment on above:Take 2 mg by mouth daily at bedtime.predniSONE 10 mg oral tablet (5 sources)Start: 01-20-2024 End: 21-06-6679wbvz 1 tablet by mouth in the morningpredniSONE (Deltasone) 10 MG tablet Indications: Irritant contact dermatitis due to other agents Take 1 tablet (10 mg) by mouth in the morning and 1 tablet (10 mg) before bedtime. Do all this for 5 days. 10 tablet 01/20/2024 01/25/2024 ActiveStart: 07-14-2022 predniSONE 20 MG Oral Tablet Quantity: 18 Refills: 0 Ordered: 14-Jul-2022 DO Start : 14-Jul-2022 Activepyridostigmine bromide 60 mg oral tablet (19 sources)Start: 08-07-2022 End: 06-53-9809bfme 1 tablet by mouth three times daily before breakfast, then take 0.5 tablet by mouth three times daily at mealtime, then take 1 tablet by mouth three times dailypyridostigmine (Mestinon) 60 mg tablet TAKE 1 TAB BY MOUTH THREE TIMES DAILY (BEFORE BREAKFAST, BEFORE LUNCH, BEFORE EVENING MEAL) START AT ONE HALF TAB THREE TIMES DAILY WITH MEALS AND INCREASE TOLERATED TO THE FULL TAB 3 TIMES A DAY 0 08/08/2022 Activesotalol hydrochloride 120 mg oral tablet (20 sources)AntiarrhythmicStart: 61-98-6699annokoz (Betapace) 120 MG tablet 02/26/2024 ActiveStart: 01-30-2024 End: 66-82-4517kuqv 1 tablet by mouth in the morningsotalol (Betapace) 80 MG tablet Take 80 mg by mouth in the morning and 80 mg in the evening. 01/30/2024 02/29/2024 Activetake 1 tablet by mouth every twelve hourssotalol (BETAPACE) 120 mg tablet Take 120 mg by mouth every 12 hours. Activesucralfate 1000 mg oral tablet (20 sources)Aluminum ComplexStart: 74-52-1904hetx 1 tablet by mouth four times daily at bedtimesucralfate (CARAFATE) 1 GM tablet TAKE 1 TABLET BY MOUTH 4 TIMES DAILY (BEFORE MEALS AND AT BEDTIME). 120 Tablet 3 01/15/2020 ActiveStart: 07-04-1154Cenlomkhky 1 GM Oral Tablet Quantity: 120 Refills: 0 Ordered: 15-Jan-2020 DO Start : 15-Jan-2020 Active End: 61-59-8115qxpj 1 tablet by mouth three times dailysucralfate (CARAFATE) 1 gram tablet Take 1 g by mouth three times daily. 05/04/2021 Discontinued (Di scontinued by another Health Care Provider)topiramate 25 mg oral tablet (14 sources)Start: 57-60-4916tiiklgnhhu (Topamax) 25 MG tablet Take 12.5 mg by mouth in the morning and 12.5 mg before bedtime. 04/12/2023 ActiveStart: 12-79-4573vcwe 1 tablet by mouth twice dailyStart: 05-02-2018 End: 98-37-2917jnhb 1 tablet by mouth twice dailyTopiramate 50 mg tablet Discontinued 50 MG PO Twice daily May 02, 2018 1:00am September 16, 2018 3 :06pm5 ml valproic acid 100 mg/ml injection (1 source)Mood Stabilizer, Anti-epileptic AgentStart: 68-05-8921Fqvqqnspr Sodium SOLN 2,000 mg24 hr venlafaxine 37.5 mg extended release oral capsule (9 sources)Serotonin and Norepinephrine Reuptake InhibitorStart: 07-20-2022 End: 56-45-9423dlqk 1 capsule by mouth once daily in the morningvenlafaxine XR (Effexor-XR) 37.5 mg 24 hr capsule Take 1 capsule (37.5 mg) by mouth once daily in the morning. DO NOT CRUSH OR CHEW 0 07/21/2022 Activetake 1 tablet by mouth three times dailyvenlafaxine (EFFEXOR) 37.5 mg tablet Take 37.5 mg by mouth three times daily. 0 ActiveComment on above:Take 37.5 mg by mouth three times daily. Completed/Discontinued Medications MedicationDrug Class(es)DatesSig (Normalized)Sig (Original)acetaminophen 325 mg / oxyCODONE hydrochloride 5 mg oral tablet (3 sources)Opioid AgonistStart: 01-05-2022 End: 15-38-3637debPDZUWE-Acetaminophen 5-325 MG Oral Tablet Quantity: 15 Refills: 0 Ordered: 05-Jan-2022 DO Start : 05-Jan-2022 End : 25-Sep-2022 Complete Start: 01-05-2022 End: 40-78-9009qcwj 1 tablet by mouth every eight hours as needed for pain oxyCODONE-acetaminophen (PERCOCET) 5-325 MG per tablet Indications: Acute pancreatitis, unspecifiedcomplication status, unspecified pancreatitis type Take 1 tablet by mouth every 8 hours as needed for Pain for up to 3 days. 15 tablet 0 01/05/2022 01/08/2022 ActiveStart: 51-85-6755frcWPBRDI-acetaminophen (PERCOCET) 5-325 MG per tablet 1 tabletAimovig (13 sources)Aimovig Not-Taking/PRNAimovig Not-TakingAmiodarone (13 sources)AntiarrhythmicAmiodarone HCl Not-Taking/PRNAmiodarone HCl Not-Taking amLODIPine 5 mg oral tablet (3 sources)Dihydropyridine Calcium Channel BlockeramLODIPine Besylate 5 MG Oral Tablet Refills: 0 ActiveamLODIPine 5 mg / benazepril hydrochloride 10 mg oral capsule (16 sources)Dihydropyridine Calcium Channel González, Angiotensin Converting Enzyme InhibitorStart: 02-27-2021 End: 39-25-4731qxVBDQLsgx Besy-Benazepril HCl - 5-10 MG Oral Capsule Quantity: 90 Refills: 0 Ordered: 19-Nov-2021 DO Start : 27-Feb-2021 End : 25-Sep-2022 CompleteStart: 51-91-6965lgjivurhgr-benazepril (LOTREL) 5-10 MG per capsule 02/08/2020 ActiveStart: 05-02-2018 End: 57-82-1619uxxz 1 capsule by mouth once daily in the eveningAmlodipine- Benazepril 5-10 mg capsule Discontinued 1 CAP PO Every evening May 02, 2018 1:00amDece2022 1:19pmComment on above:Take 1 capsule by mouth once daily.apixaban 5 mg oral tablet (15 sources)Factor Xa InhibitorStart: 07-01-2020 End: 36-32-0845okmp 1 tablet by mouth twice dailyApixaban (Eliquis) 5 mg Tablet Discontinued 5 MG PO Twice daily July 01, 2020 1:00am April 12, 2023 1:19pm On Hold: Resume on 07/04/20. Hold Eliquis at discharge, may resume on ActiveComment on above:Take 5 mg by mouth twice daily.atorvastatin 80 mg oral tablet (20 sources)HMG-CoA Reductase InhibitorStart: 07-01-2020 End: 37-93-1232iqfv 1 tablet by mouth once daily in the eveningAtorvastatin 80 mg Tablet Discontinued 80 MG PO Every evening July 01, 2020 1:00am April 12, 2023 1:19pmAtorvastatin Calcium Not-Taking/PRN End: 86-19-2476Vdkfouotyesk Calcium 80 MG Oral Tablet Quantity: 0 Refills: 0 Ordered: 31-Jul-2022 DO End : 31-Jul-2022 CompleteAtorvastatin Calcium Not-Takingbenazepril hydrochloride 10 mg oral tablet (20 sources)Angiotensin Converting Enzyme InhibitorStart: 05-31-2022 End: 23-97-3947eers 1 tablet by mouth once dailybenazepril (LOTENSIN) 10 mg tablet Take 1 tablet by mouth once daily. 0 05/31/2022 05/31/2023 Discontinued Start: 12-26-2021 End: 15-14-4698jpvm 1 tablet by mouth once dailyBenazepril HCl - 10 MG Oral Tablet TAKE 1 TABLET BY MOUTH ONCE DAILY Quantity: 90 Refills: 0 Ordered: 13-Aug-2022 DO Start : 26-Dec-2021 ActiveStart: 12-07-2019 End: 11-48-9758elujppxruy (LOTENSIN) 5 MG tablet 12/07/2019 ActiveStart: 20-27-5659gqur 2 tablets by mouth once dailybenazepril (Lotensin) 5 mg tablet Take 2 tablets (10 mg) by mouth once daily. Replacing amlodipine/benazepril 0 11/06/2019 ActiveComment on above:Take 1 tablet by mouth once daily. betamethasone 3 mg/ml / betamethasone acetate 3 mg/ml injectable suspension (2 sources)CorticosteroidStart: 05-31-2022 End: 72-25-0846fctwugqcvusnj acetate-betamethasone sodium phosphate 6 mg injection (CELESTONE)Start: 05-31-2022 End: 21-94-3097wenkfewxophrg acetate-betamethasone sodium phosphate 12 mg injection (CELESTONE)calcium carbonate 1250 mg / cholecalciferol 200 unt oral tablet (7 sources)Vitamin DStart: 10-13-2018 End: 93-09-9158sjdb 4 tablets by mouth four times dailyCalcium Carbonate-Vitamin D3 (Oyster Shell Calcium-Vit D3) 500 mg(1,250mg) -200 unit tablet Discontinued 4 TAB PO Four times daily October 13, 2018 9:15pm July 01, 2020 3:30pmStart: 10-13-2018 End: 53-06-9495xzzq 2 tablets by mouth three times dailyCalcium Carbonate- Vitamin D3 500mg (1,250mg) -600 unit Tablet Discontinued 2 TAB PO Three times daily October 13, 2018 12:00am December 19, 2018 10:18amStart: 09-25-2018 End: 52-60-8502fdmc 3 tablets by mouth every six hoursCalcium Carbonate-Vitamin D3 (Oyster Shell Calcium-Vit D3) 500 mg(1,250mg) -200 unit Tablet Discontinued 3 TAB PO Q6H 360 30 September 25, 2018 8:45am October 13, 2018 9:09pmCalcium Carbonate- Vitamin D3 (Oyster Shell Calcium-Vit D3) 500 mg(1,250mg) -200 unit tablet (2 sources)Start: 10-13-2018 End: 34-07-8913dxcv 4 tablets by mouth four times dailyCalcium Carbonate-Vitamin D3 (Oyster Shell Calcium-Vit D3) 500 mg(1,250mg) -200 unit tablet Discontinued 4 TAB PO Four times daily October 13, 2018 8:15pm July 01, 2020 2:30pmcalcium chloride 0.0014 meq/ml / potassium chloride 0.004 meq/ml / sodium chloride 0.103 meq/ml / sodium lactate 0.028 meq/ml injectable solution (2 sources)Start: 01-01-2022 End: 32-11-1610mthyxgia ringers boluscefdinir 300 mg oral capsule (1 source)Cephalosporin AntibacterialStart: 07-14-2022 End: 80-12-2529Gzssxlpe 300 MG Oral Capsule Quantity: 14 Refills: 0 Ordered: 14-Jul-2022 DO Start : 14-Jul-2022 End : 25-Sep-2022 Completeciprofloxacin 500 mg oral tablet (6 sources)Quinolone AntimicrobialStart: 01-05-2022 End: 06-91-3160Nxkxygmlwgyrn HCl - 500 MG Oral Tablet Quantity: 4 Refills: 0 Ordered: 05-Jan-2022 DO Start : 05-Jan-2022 End : 25-Sep-2022 CompleteStart: 01-03-2022 End: 94-49-7782alwd 1 tablet by mouth every twenty-four hoursciprofloxacin (CIPRO) 500 MG tablet Take 1 tablet by mouth every 24 hours for 5 doses 5 tablet 0 01/03/2022 01/05/2022 Discontinued (Stop Taking at Discharge)Start: 01-03-2022 End: 77-52-5250bwevwvtnjsrrj (CIPRO) tablet 500 mgStart: 01-02-2022 End: 67-41-7395unqzltaffkepn (CIPRO) IVPB 400 mgcyclobenzaprine hydrochloride 10 mg oral tablet (3 sources)Muscle RelaxantStart: 35-46-9136imes 1 tablet by mouth twice daily as neededCyclobenzaprine HCl - 10 MG Oral Tablet TAKE 1 TABLET TWICE DAILY NEEDED. Quantity: 6 Refills: 0Ordered: 29-Nov-2022 Yossi Chen MD Start : 29-Nov-2022 Activedicyclomine hydrochloride 10 mg oral capsule (10 sources)AnticholinergicStart: 04-02-2023 End: 84-22-7109llzy 1 capsule by mouth twice dailyDicyclomine 10 mg capsule Discontinued 10 MG PO Twice daily April 12, 2023 1:00am September 05, 2023 9:38amStart: 79-33-9404smvh 1 capsule by mouth twice dailyBentyl 10 MG 1 capsule Orally twice a day for 30 days Mar, Jtohcw09 hr dilTIAZem hydrochloride 180 mg extended release oral capsule (20 sources)Calcium Channel BlockerStart: 04-12-2023 End: 23-69-9972pdua 1 capsule by mouth once dailyDiltiazem Hcl 180 mg capsule,extended release 24hr Discontinued 260 MG PO Daily April 12, 2023 1:00am September 05, 2023 9:39amStart: 85-54-2479bnky 260 mg by mouth once daily Diltiazem Hcl Active 260 MG PO Daily April 12, 2023 12:00amStart: 71-36-0590lzql 2 capsules by mouth every twenty-four hours in the morning dilTIAZem CD (Cardizem CD) 180 MG 24 hr capsule TAKE 2 CAPSULES BY MOUTH IN THE MORNING 0 12/27/2022 ActiveStart: 70-89-3365rzmq 2 capsules by mouth once daily in the morningdilTIAZem CD (Cardizem CD) 180 mg 24 hr capsule Take 2 capsules (360 mg) by mouth once daily in themorning. 0 09/08/2022 ActiveStart: 06-08-2022 dilTIAZem HCl ER Coated Beads 180 MG Oral Capsule Extended Release 24 Hour Quantity: 180 Refills: 0Ordered: 08-Sep-2022 DO Start : 08-Jun-2022 ActiveStart: 05-31-2022 End: 03-73-2692ixhg 1 tablet by mouth once dailydilTIAZem HCl 360 mg 24 hr tablet Take 1 tablet by mouth once daily. 0 05/31/2022 05/31/2023 Discontinued Start: 18-78-6246gudm 1 capsule by mouth once daily in the morningdilTIAZem CD (Cardizem CD) 240 mg 24 hr capsule Take 1 capsule (240 mg) by mouth once daily in the morning. 0 04/30/2022 ActiveStart: 03-22-2022 End: 97-42-7653hrhe 9 capsules by mouth every twenty-four hoursdilTIAZem HCl ER Coated Beads 240 MG Oral Capsule Extended Release 24 Hour Quantity: 30 Refills: 0 Ordered: 30-Apr-2022 DO Start : 22-Mar-2022 End : 25-Sep-2022 CompleteStart: 92-96-5005slmx 1 capsule by mouth once dailydiltiazem (CARDIZEM CD) 120 MG ER capsule TAKE 1 CAPSULE BY MOUTH DAILY. 30 Capsule 3 01/15/2020 ActiveStart: 47-00-1956vmby 2 tablets by mouth four times dailydilTIAZem (Cardizem) 30 mg immediate release tablet Take 2 tablets (60 mg) by mouth 4 times a day. 0 11/06/2019 Activetake 2 capsules by mouth in the morningdilTIAZem HCl ER Coated Beads 180 MG TAKE 2 CAPSULES BY MOUTH IN THE MORNING Oral for 90 Days Activetake 1 capsule by mouth every twenty-four hoursdilTIAZem HCl ER 180 MG Oral Capsule Extended Release 24 Hour Quantity: 0 Refills: 0 Ordered: 17-Jul-2022 DO Active End: 54-65-5923ayoh 1 capsule by mouth once dailydilTIAZem (CARDIZEM 12 HR) 120 MG extended release capsule Take 120 mg by mouth daily 0 01/05/2022 Discontinued (Stop Taking at Discharge)Comment on above:Take 1 tablet by mouth once daily.1 ml erenumab-aooe 140 mg/ml auto-injector (3 sources)Start: 07-01-2020 End: 44-12-8220ntstaf 140 mg by subcutaneous injection every monthErenumab-Aooe (Aimovig Autoinjector) 140 mg/mL Auto-Injector Discontinued 140 MG SUBCUT every monthJuly 01, 2020 1:00am April 12, 2023 1:19pmesomeprazole 40 mg delayed release oral capsule (3 sources)Proton Pump InhibitorStart: 01-15-2020 End: 73-06-9742jypi 1 capsule by mouth twice daily 30 minutes before mealtime esomeprazole (NEXIUM) 40 MG capsule TAKE 1 CAPSULE BY MOUTH 2 TIMES DAILY (30 MINUTES BEFORE MEALS). 120 Capsule 1 01/15/2020 01/15/2020 Discontinued (Leg[facility] Prescription Brought in as Discontinued)febuxostat 40 mg oral tablet (20 sources)Xanthine Oxidase InhibitorStart: 06-24-2017 End: 64-20-0392nkvy 1 tablet by mouth once dailyFebuxostat 40 mg tablet Discontinued 40 MG PO Daily September 16, 2018 12:00am April 12, 2023 1:19pm Comment on above:Take 40 mg by mouth once daily.FLUoxetine 20 mg oral capsule (20 sources)Serotonin Reuptake InhibitorStart: 02-06-2024 End: 62-55-8354empo 1 capsule by mouth once dailyFLUoxetine (PROzac) 20 MG capsule Indications: Anxiety Take 1 capsule (20 mg) by mouth Daily 30 capsule 02/06/2024 08/21/2024 Discontinuedgabapentin 300 mg oral capsule (20 sources)Anti-epileptic AgentStart: 98-31-1487pvuv 1 tablet by mouth twice daily as needed for painGabapentin 300 MG Oral Capsule 1 tablet twice daily as needed for pain Quantity: 10 Refills: 0 Ordered: 29-Nov-2022 Yossi Chen MD Start : 29-Nov-2022 ActiveStart: 07-01-2020 End: 44-01-7312rqlr 1 tablet by mouth once daily in the eveningGabapentin 300 mg Tablet Extended Release 24 Hr Discontinued 300 MG PO Every evening July 01, 2020 1:00am April 12, 2023 1:19pmStart: 07-01-2020 End: 59-58-5630czmu 300 mg by mouth once daily in the eveningGabapentin Discontinued 300 MG PO Every evening July 01, 2020 12:00am April 12, 2023 12:19pmGabapentin Not-Taking/PRNGabapentin Not-Taking1 ml HYDROmorphone hydrochloride 1 mg/ml cartridge (1 source)Opioid AgonistStart: 01-02-2022 End: 37-72-2765TVDAMwnoyatpf (DILAUDID) injection 0.5 mgindocyanine green (IC- GREEN) syringe 5 mg (1 source)Start: 01-02-2022 End: 73-89-0913xsypmygrtes green (IC-GREEN) syringe 5 mgindomethacin 25 mg oral capsule (18 sources)Nonsteroidal Anti-inflammatory DrugStart: 07-01-2020 End: 11-61-6757nvno 1 capsule by mouth twice dailyIndomethacin 25 mg Capsule Discontinued 25 MG PO Twice daily July 01, 2020 1:00am July 02, 2020 11:09amIndomethacin Not-Taking/PRNIndomethacin Not-Takingiohexol (OMNIPaque) 350 mg iodine/mL injection 75 mL (1 source)Start: 02-01-2023 End: 66-62-4602dwyfrnt (OMNIPaque) 350 mg iodine/mL injection 75 mLketorolac tromethamine 10 mg oral tablet (6 sources)Nonsteroidal Anti-inflammatory Drug, Cyclooxygenase InhibitorStart: 31-08-4680qrwa 1 tablet by mouth every eight hours as needed for painKetorolac Tromethamine 10 MG Oral Tablet TAKE 1 TABLET EVERY 8 HOURS NEEDED FOR PAIN. Quantity: 9 Refills: 0 Ordered: 29-Nov-2022 Yossi Chen MD Start : 29-Nov-2022 ActiveStart: 41-80-3396Hmmavurbp Tromethamine 0.5 % Ophthalmic Solution Quantity: 5 Refills: 0 Ordered: 07-Feb-2022 DO Start : 07-Feb-2022 Activelabetalol hydrochloride 5 mg/ml injectable solution (1 source)beta-Adrenergic BlockerStart: 01-04-2022 End: 50-20-4991aqdiuojzh (NORMODYNE;TRANDATE) injection 20 mgStart: 01-04-2022 End: 64-96-6091bjgboxrjt (NORMODYNE;TRANDATE) injection 20 mg150 ml levoFLOXacin 5 mg/ml injection (1 source)Quinolone AntimicrobialStart: 01-01-2022 End: 77-76-3079xqkiZUSSiynl (LEVAQUIN) 750 MG/150ML infusion 750 mg50 ml magnesium sulfate 40 mg/ml injection (1 source)Start: 01-01-2022 End: 95-72-9041sscfkfpel sulfate 2000 mg in 50 mL IVPB premixmethylPREDNISolone (13 sources)CorticosteroidStart: 55-28-4085Vflr-Medrol 40 mg Dec, 1 mL ondansetron 4 mg oral tablet (9 sources)Serotonin-3 Receptor AntagonistStart: 32-35-2885Rorvxxohldr HCl - 4 MG Oral Tablet Quantity: 30 Refills: 0 Ordered: 05-Jan-2022 DO Start : 06-Jan-20 ActiveStart: 14-29-3685tscx 1 tablet by mouth once daily as needed for nausea ondansetron (ZOFRAN) 4 MG tablet Take 1 tablet by mouth daily as needed for Nausea or Vomiting 30 tablet 0 01/05/2022 Activepantoprazole 40 mg delayed release oral tablet (2 sources)Proton Pump InhibitorStart: 06-06-2023 End: 33-45-6463vlhw 1 tablet by mouth once dailyPantoprazole (Protonix) 40 mg tablet,delayed release (DR/EC) Discontinued 40 MG PO Daily 2023 1:00am June 06, 2023 3:03pmprednisoLONE acetate 10 mg/ml ophthalmic suspension (3 sources)CorticosteroidStart: 85-49-4924nabjgzmyFXYI Acetate 1 % Ophthalmic Suspension Quantity: 5 Refills: 0 Ordered: 07-Feb-2022 DO Start: 07-Feb-2022 Dmygvx22 hr ranolazine 500 mg extended release oral tablet (2 sources)Anti-anginal End: 05-83-4680uxtr 1 tablet by mouth twice daily, then take 1 tablet by mouth every twelve hoursranolazine ER (RANEXA) 500 mg 12 hr tablet Take 500 mg by mouth twice daily. 05/04/2021 Discontinued (Discontinued by another Health Care Provider)Comment on above:Take 500 mg by mouth.rifAXIMin 550 mg oral tablet (4 sources)Rifamycin AntibacterialStart: 06-07-2023 End: 51-00-6171gliq 1 tablet by mouth three times dailyRifaximin (Xifaxan) 550 mg tablet Discontinued 550 MG PO Three times daily 42 14 June 10, 2023 3:45pm September 05, 2023 9:39am20 ml ropivacaine hydrochloride 5 mg/ml injection (1 source)Amide Local AnestheticStart: 05-31-2022 End: 67-41-6817bcvkddirrsp (PF) 5 mg/mL (0.5 %) 50 mg injection (NAROPIN) sertraline 50 mg oral tablet (20 sources)Serotonin Reuptake InhibitorStart: 37-29-3915Axyezskpiz HCl - 50 MG Oral Tablet Quantity: 30 Refills: 0 Ordered: 12-Oct-2021 DO Start : 12-Oct-2021 Activetake 1 tablet by mouth every twenty-four hoursZoloft 25 MG 1 tablet Orally Once a day Activesertraline (Zoloft) 50 mg tablet Take by mouth. 0 Activesodium bicarbonate 75 mEq in sodium chloride 0.45 % 1,000 mL infusion (1 source)Start: 01-03-2022 End: 34-95-5818sipvzm bicarbonate 75 mEq in sodium chloride 0.45 % 1,000 mL vjpebpsl1453 ml sodium chloride 9 mg/ml injection (5 sources)Start: 72-27-7250eqlalm chloride flush 0.9 % injection 5-40 mLStart: 12-31-2021 End: .9 % sodium chloride infusionStart: .9 % sodium chloride infusiontamsulosin hydrochloride 0.4 mg oral capsule (10 sources)alpha-Adrenergic BlockerStart: 38-37-0866Yoyjciazxl HCl - 0.4 MG Oral Capsule Quantity: 14 Refills: 0 Ordered: 21-Mar-2022 DO Start : 21-Mar-2022 Activetake 1 capsule by mouth every twenty-four hourstamsulosin (Flomax) 0.4 mg 24 hr capsule Take by mouth. 0 ActivetiZANidine 4 mg oral tablet (13 sources)Central alpha-2 Adrenergic AgonistStart: 11-13-2012 End: 16-34-9854ssve 1 tablet by mouth at bedtimeTizanidine 4 mg tablet Discontinued 4 MG PO Bedtime May 02, 2018 1:00am April 12, 2023 1: 19pmtriamcinolone acetonide 1 mg/ml topical cream (3 sources)CorticosteroidStart: 12-07-2023 End: 69-31-5980egqntvtjptkoc (Kenalog) 0.1 % cream Indications: Poison margarita dermatitis Apply topically 2 (two) times a day as needed (pain and swelling) 30 g 2 12/07/2023 12/24/2023 Discontinued (Therapy completed)ubrogepant 100 mg oral tablet (1 source)Start: 06-29-2021 End: 40-77-7132vukq 2 tablets by mouth once daily as neededubrogepant (UBRELVY) 100 mg tablet Take 0.5-1 tablets by mouth as needed (migraine). Can repeat dose in 2 hours. No more than 200 mg per day. 10 tablet 3 06/29/2021 05/31/2022 Discontinued (Other)Comment on above:Take 0.5-1 tablets by mouth as needed (migraine). Can repeat dose in 2 hours. No more than 200 mg per day.vitamin b12 1 mg oral tablet (5 sources)Vitamin B12 End: 84-61-7683qsnf 1.25 ug by mouth every weekcyanocobalamin (Vitamin B-12) 1000 MCG tablet Take 1.25 mcg by mouth once a week 06/13/23 Pt not taking 12/24/2023 Discontinued (Therapy completed) Problems Active Problems Problem ClassificationProblemDateDocumented DateEpisodic/ChronicAllergic reactions (13 sources)Allergy status to penicillin; Translations: [Allergy status to other antibiotic agents status]Onset: 970868-54-0024TpwgvnwyXcingow disorders (20 sources)Anxiety; Translations: [Anxiety disorder, unspecified]Onset: 825975-87-1432YwqqmfkCjcszn; peripheral; and visceral artery aneurysms (20 sources)Ectasia of thoracic aorta; Translations: [Thoracic aortic ectasia] Onset: 717080-16-3609YskdywuHqnzdfq dysrhythmias (20 sources)Paroxysmal atrial fibrillation; Translations: [Paroxysmal atrial fibrillation]Onset: 68-80-6706FavudgiKspbrocc (20 sources)Nuclear sclerotic cataract; Translations: [Age-related nuclear cataract, left eye]Onset: 043080-46-4431OdxblhbIpkppae kidney disease (20 sources)Chronic kidney disease stage 3; Translations: [Chronic kidney disease, stage 3 (moderate)]Onset: 11-17-2019 Resolved: 53-25-5533RiegjerNdkuuvv kidney disease (3 sources)Chronic kidney disease; Translations: [Chronic kidney disease, stage 3 unspecified]Onset: 50-52-5142Lxkacdf obstructive pulmonary disease and bronchiectasis (2 sources)Bronchiectasis; Translations: [Bronchiectasis, uncomplicated] 30-82-2034MgocytfYgszpzjeoitbd of surgical procedures or medical care (20 sources)Hypoparathyroidism following procedure; 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]Onset: 581081-33-7476HnjfxcqIflbqik on above:Patient counseled about the signs and symptoms of low calcium. If this occurs he is to report to the [facility] emergency room. He will be sent home on calcium supplementation as well as Rocaltrol. He is to resume his prehospital thyroid medication dosage. I will see him in 1 week.Conditions associated with dizziness or vertigo (20 sources)Meniere's disease; Translations: [Meniere's disease, unspecified ear]Onset: 765082-79-3337AotdkocTsupkiaoae associated with dizziness or vertigo (6 sources)Dizziness and giddiness; Translations: [Dizzy spells]Onset: 219494-04-3650RxafixtnZhartwinhl disorders (5 sources)Cardiac pacemaker in situ; Translations: [Presence of cardiac pacemaker]Onset: 094715-29-7633FumpaixRbdoqnlrny heart failure; nonhypertensive (2 sources)Chronic combined systolic and diastolic heart failure; Translations: [Chronic combined systolic (congestive) and diastolic (congestive) heart failure]40-42-5436BdavzjzGrdvokxj atherosclerosis and other heart disease (20 sources)Atypical angina; 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 forms of angina pectoris] Onset: 407275-47-9106GwqwxvpPmncnqmdh congenital anomalies (1 source)Esophageal web; 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]Onset: 12-77-7699Yaokgvf Disorders of lipid metabolism (20 sources)Hyperlipidemia; Translations: [Hyperlipidemia, unspecified]Onset: 232198-32-9495MmvmlysUfnsovhuh of teeth and jaw (4 sources)Infection of tooth; Translations: [Periapical abscess without sinus] 29-80-1338OrszxilsQkgfaiwmwxiyuy and diverticulitis (20 sources)Diverticulosis of small intestine; Translations: [Diverticulosis of small intestine without perforation or abscess without bleeding]Onset: 107600-16-5996AauoimuAxljhcwumw disorders (20 sources)Gastroesophageal reflux disease; Translations: [Gastro-esophageal reflux disease without esophagitis]Onset: 805446-84-7553PeoywevHuqyvbzoq hypertension (20 sources)Essential (primary) hypertension; Translations: [Malignant hypertension]Onset: 04-27-2015 Resolved: 833041-21-3425EasmdyxJmwrozewf hypertension (2 sources)Essential hypertensionOnset: 89-79-0002Awjoynykblyoxp ulcer (except hemorrhage) (13 sources)Gastric ulcer without hemorrhage, without perforation AND without obstruction; Translations: [Gastric ulcer, unspecified as acute or chronic, without hemorrhage or perforation]ChronicGastrointestinal hemorrhage (6 sources)Upper gastrointestinal bleeding; Translations: [Gastrointestinal hemorrhage, unspecified]12-47-4402WmfdjfikAtysppmhawdjf symptoms and ill-defined conditions (20 sources)Post-micturition incontinence ; Translations: [Post-void dribbling] Onset: 191924-80-6785XtrcnzlWdkj and other crystal arthropathies (20 sources)Chronic gouty arthritis; Translations: [Idiopathic chronic gout, multiple sites, without tophus (tophi)]Onset: 276190-73-9251Azlfaml Headache; including migraine (20 sources)Migraine without aura, not refractory ; Translations: [Migraine without aura, not intractable, without status migrainosus]Onset: 03-19-2018 63-59-2139KnbgxucQgkrzsesifg of prostate (20 sources)Benign prostatic hypertrophy with outflow obstruction; Translations: [Benign prostatic hyperplasia with lower urinary tract symptoms]Onset: 890089-36-1261SgwkervKrafcbbomppz with complications and secondary hypertension (19 sources)Hypertensive renal disease; Translations: [Hypertensive chronic kidney disease with stage 1 throughstage 4 chronic kidney disease, or unspecified chronic kidney disease]Onset: 772984-77-2078SimlnovYgamlmzp disorders (1 source)[place] light chain disease; 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,not elsewhere classified]95-84-0783QmbhgtmDxmvthc and fatigue (4 sources)Asthenia; Translations: [Weakness]53-02-7591UvgsmdvjLchbusuhmw disorders (1 source)Hormone replacement therapy; Translations: [HORMONE REPLACEMENT THERAPY]Onset: 42-20-5581NzcwhkadRpywyfisgobkz mental health disorders (1 source)Other somatoform disorders; Translations: [OTHER SOMATOFORM DISORDERS] Onset: 29-94-6702WkcuafjQdqwahobyff chest pain (20 sources)Chest pain; Translations: [Chest pain, unspecified]Onset: 01-24-2021 89-49-4592CgyttzyuFjgcqhtztdj deficiencies (20 sources)Vitamin D deficiency; Translations: [Vitamin D deficiency, unspecified]Onset: 444894-76-3334HzcagyzVfrtdbgzdbbgaj (20 sources)Osteoarthritis of elbow; Translations: [Primary osteoarthritis, right elbow]Onset: 963755-44-1942TsbutzpDeluv aftercare (1 source)Other longterm (current) drug therapy; Translations: [OTH ALF CURRENT DRUG THERAPY]Onset: 35-60-5326MsumsyfrIixag aftercare (1 source)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; Translations: [ALF CURRNT USE ANTICOAGULANTS]Onset: 21-13-7405ApoaetgeHiclr aftercare (4 sources)long-term (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 of aspirin; Translations: [ALF CURRENT USE OF ASPIRIN]Onset: 11-36-8214CjafunmlWccap aftercare (1 source)Patient encounter status; Translations: [long-term (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 of antithrombotics/antiplatelets]31-11-1128TxaznjliNpqwk aftercare (2 sources)Long-term current use of aspirin; Translations: [long-term (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 of aspirin]33-87-7450WxpzubuuNwwox and ill-defined heart disease (20 sources)Left ventricular hypertrophy; Translations: [Cardiomegaly]Onset: 041299-14-3625QpiwwriSrxom and unspecified benign neoplasm (1 source)Benign neoplasm of lymph nodes; Translations: [Benign neoplasm of lymph nodes]Onset: 92-19-0922AkhzoxgbRxfuu and unspecified benign neoplasm (1 source)Mass of digestive structure; Translations: [Polyp of stomach and duodenum]25-26-7509RirgiaovPkxek circulatory disease (20 sources)Presence of other cardiac implants and grafts; 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 specified cardiac device in situ]Onset: 789726-25-3479SijsipcRlvez circulatory disease (20 sources)H/O: hypertension; Translations: [Personal history of other diseases of circulatory system]EpisodicOther circulatory disease (3 sources)Personal history of transient ischemic attack (TIA), and cerebral infarction without residual deficits; Translations: [Prsnl hx of TIA (TIA), and cereb infrc w/o resid deficits]Onset: 51-11-9530DcgwlembZtvov circulatory disease (2 sources)History of cerebrovascular disease; Translations: [Personal history of transient ischemic attack (TIA), and cerebral infarction without residual deficits]52-81-6246BfqfxavyCxrex circulatory disease (3 sources)Low blood pressure; Translations: [Hypotension, unspecified] 50-18-3667LaxquqtiQguxx connective tissue disease (1 source)Presence of artificial knee joint, bilateral; Translations: [Presence of artificial knee joint, bilateral]Onset: 15-87-0455QuxprctTfncb connective tissue disease (20 sources)Artificial knee joint present; Translations: [Presence of artificial knee joint, bilateral]Onset: 413385-03-8377QxwyitpJmyxr connective tissue disease (20 sources)History of total knee arthroplasty; Translations: [Presence of right artificial knee joint]Onset: 254639-61-5449NsqqtgnTibfv connective tissue disease (7 sources)Arthrodesis status; Translations: [Arthrodesis status]Onset: 93-53-4476BamzopdhYclsx connective tissue disease (1 source)H/O: arthrodesis; Translations: [Arthrodesis status]66-81-9903Dgjmxiaq Other connective tissue disease (2 sources)Cramp; Translations: [Cramp and spasm]45-07-7126XfclxkmmXrosx connective tissue disease (2 sources)Pain in bilateral legs; Translations: [Pain in right leg]01-14-2025 EpisodicOther connective tissue disease (1 source)Repeated falls; Translations: [Falls frequently]Onset: 01-07-2025 EpisodicOther diseases of kidney and ureters (13 sources)Secondary hyperparathyroidism; Translations: [Secondary hyperparathyroidism of renal origin]ChronicOther diseases of kidney and ureters (2 sources)Kidney ymfdekr89-79-0109WhmchfipPthvi disorders of stomach and duodenum (1 source)Disorder of upper gastrointestinal tract; 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 diseases of stomach and duodenum]62-98-9448ZgyeiithFwcmj endocrine disorders (20 sources)Hypoparathyroidism; Translations: [Hypoparathyroidism, unspecified] Onset: 656985-39-2021WxpudtxThmha eye disorders (1 source)Ptosis of eyelid; Translations: [Unspecified ptosis of bilateral eyelids]91-54-1810SszialxjXpbux eye disorders (6 sources)Acquired ptosis of eyelid of right eye; Translations: [Unspecified ptosis of right eyelid]85-50-5345CluxtsazIzbgx eye disorders (2 sources)Ptosis of right upper eyelid; Translations: [Unspecified ptosis of right eyelid]66-97-5727IkvuhjnlJasnz eye disorders (1 source)Unspecified ptosis of right eyelid; Translations: [Ptosis of right eyelid]Onset: 09-12-7203CtbchvehFfuix gastrointestinal disorders (20 sources)Oropharyngeal dysphagia; Translations: [Dysphagia, oropharyngeal phase]Onset: 74-43-0450ZbqmynbdGbtaa gastrointestinal disorders (13 sources)Swallowing problem; Translations: [Dysphagia, unspecified]Episodic Other gastrointestinal disorders (13 sources)Abnormal deglutition; Translations: [Dysphagia, unspecified]Episodic Other gastrointestinal disorders (6 sources)H/O: abdominal hernia; Translations: [Personal history of other diseases of digestive system] Resolved: 08-24-2868SdesitdpAvfln gastrointestinal disorders (1 source)Other dysphagia; 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 dysphagia]Onset: 11-22-2022 EpisodicOther gastrointestinal disorders (10 sources)Diarrhea; Translations: [Diarrhea, unspecified]19-95-3792Vpswdtjy Other gastrointestinal disorders (8 sources)Diarrhea, unspecified; Translations: [Diarrhea, unspecified]Onset: 98-65-0538LmxrzgxrAmqpv hereditary and degenerative nervous system conditions (20 sources)Restless legs; Translations: [Restless legs syndrome]Onset: 05-08-2016 Resolved: 128894-58-8006DqvjgigXulqg nervous system disorders (12 sources)Chronic pain; 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 chronic pain]ChronicOther nervous system disorders (20 sources)Disorder of autonomic nervous system; Translations: [Disorder of the autonomic nervous system, unspecified]Onset: 159069-02-9517EtxiwowUxkrd nervous system disorders (4 sources)Other chronic pain; Translations: [Chronic pain]Onset: 08-03-2021 Resolved: 42-42-8707JhgqmhxUcidg nervous system disorders (20 sources)Aphasia; Translations: [Aphasia]Onset: 20-85-1381RdetrvuJavew nervous system disorders (1 source)Aphasia; Translations: [APHASIA]Onset: 57-46-1048EpgvicuLxdny nervous system disorders (20 sources)Expressive dysphasia; Translations: [Aphasia]Onset: 01-23-2020 88-49-9964PjvlrscVmluu nervous system disorders (20 sources)Disorder of muscle; Translations: [Myopathy, unspecified]Onset: 414968-06-6557QflxarnTvcee nervous system disorders (4 sources)Cranial nerve disorder; Translations: [Polyneuropathy, unspecified] 35-51-3459GxjxzwgHrala nervous system disorders (2 sources)Disorder of the autonomic nervous system, unspecified; Translations: [Disorder of the autonomic nervous system, unspecified]Onset: 98-01-5063Wkmovuc Other nervous system disorders (2 sources)Polyneuropathy, unspecified; Translations: [Polyneuropathy, unspecified]Onset: 64-98-8696CcgzwiqLggid nervous system disorders (2 sources)Cranial nerve lrpuagpy88-17-7607HpmlerqpNbgrz nervous system disorders (2 sources)Abnormal gait; Translations: [Unspecified abnormalities of gait and mobility]05-51-3830BfpykezmIkbmy nervous system disorders (2 sources)Unspecified abnormalities of gait and mobility; Translations: [Unspecified abnormalities of gait and mobility]Onset: 99-47-9010CevahccmYsxfd nutritional; endocrine; and metabolic disorders (20 sources)Hypocalcemia; Translations: [Hypocalcemia]Onset: 10-01-2018 92-00-4673FbtuviuEzdic nutritional; endocrine; and metabolic disorders (4 sources)Hypocalcemia; Translations: [HYPOCALCEMIA]Onset: 04-17-6726Olbxoeo Other nutritional; endocrine; and metabolic disorders (20 sources)Hypomagnesemia; Translations: [Hypomagnesemia]Onset: 09-06-2020 99-20-2696WwszfuuPppar upper respiratory disease (20 sources)Vocal cord paralysis; Translations: [Paralysis of vocal cords and larynx, unspecified]Onset: 352155-11-8398ChektblJaayl upper respiratory disease (13 sources)Disorder of vocal cord; Translations: [Paralysis of vocal cords and larynx, unspecified]ChronicOther upper respiratory disease (20 sources)Bilateral partial vocal cord paralysis; Translations: [Bilateral paralysis of vocal cords or larynx, partial]Onset: 621238-49-7523Zadxoyl Other upper respiratory disease (6 sources)Paralysis of vocal cords and larynx, bilateral; Translations: [Paralysis of vocal cords and larynx,bilateral]Onset: 79-92-2204CsyiedcYxiam upper respiratory disease (1 source)Paralysis of larynx; Translations: [Paralysis of vocal cords and larynx, bilateral]40-15-7420UxnxduiJfphv upper respiratory disease (20 sources)Disorder of vocal cord; 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 diseases of vocal cords]Onset: 317308-43-8268BhtumlkjStziy upper respiratory disease (9 sources)Deviated nasal septum; Translations: [Deviated nasal septum]Onset: 503841-42-8515QzjflsgxMatpg upper respiratory disease (1 source)Abnormal voice; Translations: [Unspecified voice and resonance disorder]88-70-1783PyiejiwzTwhpw upper respiratory disease (1 source)Dysphonia; Translations: [Hoarseness of voice]Onset: 12-15-2024 EpisodicOther upper respiratory infections (11 sources)Oroantral fistula; 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]Onset: 491931-84-6944HddhwusZqftv upper respiratory infections (6 sources)Acute maxillary sinusitis; Translations: [Acute maxillary sinusitis, unspecified]98-02-9186NnuhwqsbWggzrclvla and visceral atherosclerosis (2 sources)Atherosclerosis of aorta; Translations: [Atherosclerosis of aorta] 13-07-0953KyknvxpFneicxin codes; unclassified (20 sources)Obstructive sleep apnea syndrome; Translations: [Obstructive sleep apnea (adult) (pediatric)]Onset: 03-01-2020 Resolved: 066716-35-8922YjhoweoJqqwqwuz codes; unclassified (5 sources)Obstructive sleep apnea (adult) (pediatric); Translations: [Obstructive sleep apnea (adult) (pediatric)]Onset: 38-04-2156ZsvkodzGyxaptlb codes; unclassified (2 sources)Sleep apnea, unspecified; Translations: [Sleep apnea, unspecified] Onset: 75-30-5394JhdoffaRulakwsn codes; unclassified (1 source)Dependence on other enabling machines and devices; Translations: [Dependence on other enabling machines and devices]Onset: 27-02-0446Qirndvj Residual codes; unclassified (1 source)Sleep apnea; Translations: [Sleep apnea, unspecified]87-22-1561Kfmqhix Residual codes; unclassified (2 sources)Acquired absence of other specified parts of digestive tract; Translations: [ACQ ABSENCE OTH PART DIGESTV TRACT]Onset: 85-37-0573Lyzudxhj Residual codes; unclassified (19 sources)Other specified health status; Translations: [Difficulty with CPAP use]Onset: 48-44-9018YjpbwrsnEillzlpn codes; unclassified (6 sources)History of excision of intestinal structure; 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 specified postprocedural states]Onset: 855136-46-3472LhprlosaHdxbhsojv and history of mental health and substance abuse codes (2 sources)Tobacco use and exposure - idupxzy38-92-8681MtsltvoTbxuduozu and history of mental health and substance abuse codes (8 sources)Personal history of nicotine dependence; Translations: [Personal history of tobacco use]Onset: 343138-24-6747PoubnrpoXhfblxrrncz; intervertebral disc disorders; other back problems (20 sources)Cervical spondylosis; Translations: [Spondylosis without myelopathy or radiculopathy, cervical region]Onset: 08-03-2021 Resolved: 57-94-5499XultfsxMuoewwg disorders (20 sources)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; Translations: [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, unspecified]Onset: 623574-16-5201PubqhboVdrtvurho cerebral ischemia (20 sources)Transient cerebral ischemia; 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]Onset: 70-05-2059UbmygouIfmrpvnvstfm (1 source)CONTACT W/AND (SUSP) EXPOS COVID-19; Translations: [CONTACT W/AND (SUSP) EXPOS COVID-19]Onset: 71-47-8727Gsajxnshtnbt (1 source)ELEV LVLS LIVER TRANSAMINASE LVLS; Translations: [ELEV LVLS LIVER TRANSAMINASE LVLS]Onset: 81-00-3439Jwaxmlygdvqx (3 sources)Chronic atrial fibrillation, unspecified; Translations: [Chronic atrial fibrillation, unspecified]Onset: 71-47-9299Vnrmbotproqs (1 source)Other specified disease of esophagus; 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 specified disease of esophagus]Onset: 48-04-1767Grsgkpaxwuld (1 source)Chronic migraine with aura without status migrainosus, not intractable; Translations: [Chronic migraine with aura without status migrainosus, not intractable]Onset: 10-21-0770Nkbprchmmvic (1 source)Aneurysm of the ascending aorta, without rupture; Translations: [Aneurysm of the ascending aorta, without rupture]Onset: 01-27-2024 Past or Other Problems Problem ClassificationProblemDateDocumented DateEpisodic/ChronicAbdominal hernia (20 sources)Hiatal hernia; Translations: [Diaphragmatic hernia without mention of obstruction or gangrene]Onset: 89-06-9977CzxanqyyKztdsrycl pain (15 sources)Unspecified abdominal pain; Translations: [Left lower quadrant pain] Onset: 21-43-7470FrbcodjaIlqle and unspecified renal failure (20 sources)Injury of kidney; Translations: [Acute kidney failure, unspecified] Onset: 72-95-6017UpgxdxzpJyukf posthemorrhagic anemia (20 sources)Acute posthemorrhagic anemia; Translations: [Acute posthemorrhagic anemia]Onset: 280458-60-6964GfvcvrwoNdtbvvu tract disease (20 sources)Gallstone; Translations: [Calculus of gallbladder without cholecystitis without obstruction]Onset: 370215-92-9475AmrjpswmFfkzsfkq of urinary tract (20 sources)Calcium renal calculus ; Translations: [History of calculus of kidney]Onset: 97-42-8110IiugntqpSwtnmks dysrhythmias (2 sources)Palpitations; Translations: [Palpitations]Onset: 61-29-7222Rwzjnkmz Complications of surgical procedures or medical care (20 sources)Postoperative seroma; Translations: [Postprocedural seroma of a circulatory system organ or structure following other procedure]Onset: 090476-34-2998EvvwzmyhYaxcjrmr mellitus without complication (20 sources)Hyperglycemia; Translations: [Hyperglycemia, unspecified]Onset: 37-84-6517ViokneliB Codes: Natural/environment (1 source)Other contact with dog, initial encounter; Translations: [OTHER CONTACT WITH DOG INITIAL ENC]Onset: 72-20-9892PbimnhrcBxhud and electrolyte disorders (20 sources)Dehydration; Translations: [Dehydration]Onset: 06-33-6770Jxvldibs Gastroduodenal ulcer (except hemorrhage) (20 sources)Acute gastric ulcer; Translations: [Acute gastric ulcer without hemorrhage or perforation]Onset: 79-75-6523MtopoeaiKjpmdizqirnqc symptoms and ill-defined conditions (20 sources)History of acute renal failure; Translations: [Personal history of other diseases of urinary system]Onset: 800339-33-0692TwxezareBnhalfto; including migraine (20 sources)Headache disorder; 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 headache syndrome]Onset: 349888-73-5955WkegmhujPaap disorders (20 sources)Mood disordersOnset: Nausea and vomiting (20 sources)Nausea and vomiting; Translations: [Nausea with vomiting, unspecified]Onset: 67-96-4903EvysdrwtJzazrybxwywjo gastroenteritis (20 sources)Noninfectious gastroenteritis; Translations: [Noninfective gastroenteritis and colitis, unspecified]Onset: 09-22-2024 Resolved: 49-68-176240825494-81-7102SxmlvkkiXohyvxhkfuc deficiencies (20 sources)Vitamin B12 deficiency (non anemic); Translations: [Deficiency of other specified B group vitamins]Onset: 640444-01-2527HskvurmwEqgmt aftercare (1 source)long-term (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 of antithrombotics/antiplatelets; Translations: [long-term (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 ofantithrombotics/antiplatelets]Onset: 35-22-5015RgliacinGoaxb and unspecified benign neoplasm (1 source)Polyp of stomach and duodenum; Translations: [Polyp of stomach and duodenum]Onset: 73-51-3248EganyrdqSjbqm circulatory disease (20 sources)History of transient ischemic attack; Translations: [Personal history of transient ischemic attack (TIA), and cerebral infarction without residual deficits]Onset: 57-27-7537YdtwflakLrdns circulatory disease (5 sources)Orthostatic hypotension; Translations: [Orthostatic hypotension] Onset: 919166-81-7158YxtrzmrxChabf circulatory disease (2 sources)Orthostatic hypotension; Translations: [Orthostatic hypotension] Onset: 28-61-8966EwhvlnkbMtovs connective tissue disease (3 sources)Pain in left foot; Translations: [PAIN IN LEFT FOOT]Onset: 11-16-2021 EpisodicOther connective tissue disease (5 sources)Pain in right leg; Translations: [PAIN IN RIGHT LEG]Onset: 10-03-2021 EpisodicOther connective tissue disease (1 source)Pain in left leg; Translations: [PAIN IN LEFT LEG]Onset: 10-05-2021 EpisodicOther connective tissue disease (20 sources)Recurrent falls ; Translations: [Repeated falls]Onset: 02-05-2022 87-05-5266GbmqzjcbWwnzp connective tissue disease (6 sources)Pain in right armOnset: 01-69-0029NokdmfhyAgtqy diseases of kidney and ureters (20 sources)Hydronephrosis; Translations: [Unspecified hydronephrosis]Onset: 253879-23-2231HivasozmEcprs disorders of stomach and duodenum (1 source)Other diseases of stomach and duodenum; 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 diseases of stomach and duodenum]Onset: 76-78-2833KyypfsekOogrd gastrointestinal disorders (20 sources)Dysphagia; Translations: [Dysphagia, pharyngoesophageal phase]Onset: 401210-76-4481MzmncxpjQhlxn gastrointestinal disorders (20 sources)Difficulty swallowing solids; Translations: [Dysphagia, unspecified] Onset: 597964-49-7682QsftryodAhcij gastrointestinal disorders (2 sources)Other specified diseases of intestine; Translations: [OTHER SPECIFIED DISEASES INTESTINE]Onset: 75-76-1938RxxpjmaxKkdnr gastrointestinal disorders (6 sources)Dysphagia, oropharyngeal phase; Translations: [Dysphagia, oropharyngeal phase]Onset: 00-34-2386LpbtwnabEqakd gastrointestinal disorders (3 sources)Dysphagia, unspecified; Translations: [Dysphagia, unspecified]Onset: 99-21-1620WdzpyvezCtmkt injuries and conditions due to external causes (20 sources)Muscle strain; Translations: [Unspecified site of sprain and strain] Onset: 659924-25-1718VmpemrljTcfip injuries and conditions due to external causes (20 sources)Injury of head; Translations: [Unspecified injury of head, initial encounter]Onset: 496736-25-6369UkqnkffjQhozj liver diseases (20 sources)Jaundice; Translations: [Unspecified jaundice]Onset: 01-01-2022 EpisodicOther lower respiratory disease (20 sources)Dyspnea; Translations: [Shortness of breath]Onset: 09-16-2018 21-30-9866YtwzgsoxEeibb lower respiratory disease (20 sources)Apnea; Translations: [Apnea, not elsewhere classified]Onset: 14-79-2813AnilagkzVuifx lower respiratory disease (2 sources)Other forms of dyspnea; 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 forms of dyspnea]Onset: 37-35-8398FjwovdpvYkmio nervous system disorders (20 sources)Paresthesia of lower extremity; Translations: [Paresthesia of skin] Onset: 814598-46-7998PfpbcqjfIryga nervous system disorders (20 sources)Skin sensation disturbance; Translations: [Unspecified disturbances of skin sensation]Onset: 518603-12-7711SwnhvqniQqfin nervous system disorders (1 source)Unspecified disturbances of skin sensation; Translations: [Disturbance of skin sensation]Onset: 03-16-5954CdukgjwgJetcp non-traumatic joint disorders (20 sources)Pain in elbow; Translations: [Pain in right elbow]Onset: 10-01-2022 60-90-6547LbwxfgoiMqfqk non-traumatic joint disorders (9 sources)Pain in left shoulderOnset: 06-21-2021 Resolved: 27-55-1700BwvisyzbYdslc non-traumatic joint disorders (20 sources)Arthralgia of the upper arm; Translations: [Pain in unspecified elbow]Onset: 826672-51-7758CwhfhnraGyoml non-traumatic joint disorders (20 sources)Pain in upper arm; Translations: [Pain in unspecified elbow]Onset: 491699-67-1985DpcolrtkKsiab nutritional; endocrine; and metabolic disorders (20 sources)H/O: endocrine disorder; Translations: [Personal history of other endocrine, nutritional and metabolic disease]Onset: 830856-85-3548Sydftuvi Other screening for suspected conditions (not mental disorders or infectious disease) (20 sources)Electrocardiogram abnormal; Translations: [Abnormal electrocardiogram [ECG] [EKG]]Onset: 04-08-2024 Resolved: 239831-32-0593YltjuuneNqzcv upper respiratory disease (20 sources)Hoarse; Translations: [Dysphonia]Onset: 671705-85-1877Ifxrqpxs Other upper respiratory disease (1 source)Other diseases of vocal cords; 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 diseases of vocal cords]Onset: 48-30-3238HeeqdsyoQbwmbribct disorders (not diabetes) (20 sources)Acute pancreatitis without necrosis or infection, unspecified; Translations: [Biliary acute pancreatitis without necrosis or infection]Onset: 09-54-3734RohfvkggBkxfblbp codes; unclassified (20 sources)History of anesthesia problem; Translations: [Personal history of other specified conditions]Onset: 395989-09-1312XsavdspcKwpawvyf codes; unclassified (20 sources)History of radiofrequency ablation operation for arrhythmia; 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 specified postprocedural states]Onset: EpisodicResidual codes; unclassified (20 sources)History of total thyroidectomy; 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 specified postprocedural states]Onset: 084181-95-4093CxziepxyZwwpdqsu codes; unclassified (20 sources)Disorder of digestive tract; Translations: [Acquired absence of other specified parts of digestive tract]Onset: 09-22-2024 Resolved: 167270-04-6776KcalnxcjDluxfxo detachments; defects; vascular occlusion; and retinopathy (20 sources)Detachment of retina of right eye; Translations: [Serous retinal detachment, right eye]Onset: 245241-08-2857CdkohxscQjnpmjxubv (except in labor) (1 source)Sepsis, unspecified organism; Translations: [SEPSIS UNSPECIFIED ORGANISM]Onset: 77-63-3371RsgiqglqUagjzxnqfld; intervertebral disc disorders; other back problems (20 sources)Low back pain; Translations: [Low back pain]Onset: 03-01-2020 49-63-9733AyiaywfoQqmuqzbzcqr injury; contusion (1 source)Contusion of left lesser toe(s) without damage to nail, initial encounter; Translations: [CONTUS LTLESR TOES W/O DMG NL INIT]Onset: 11-17-2021 EpisodicSyncope (20 sources)Syncope and collapse; Translations: [Syncope and collapse]Onset: 691370-02-6430EcvihermSutzice disorders (20 sources)Disorder of thyroid gland; Translations: [Disorder of thyroid, unspecified]Onset: 271746-04-7751LbvqyuhlWmclxzftfcsv (1 source)Aneurysm of the ascending aorta, without rupture; Translations: [Aneurysm of the ascending aorta, without rupture]Onset: 09-03-3148Fzyopku tract infections (1 source)Urinary tract infection, site not specified; Translations: [UTI SITE NOT SPECIFIED]Onset: 33-53-4827AvmmfnvwDLCLRUL: Highlighted row has not occurred!Residual codes; unclassified (17 sources)DiseaseEpisodic Results Test NameValueInterpretationReference RangeFacilityCNOVon 95-86-5127ORNSHbzqox Visit ([facility]) YOLI ANTUNEZ ([id number]) 1955 M Date Time Provider Department 02/11/25 11:45 AM ABBY BERNSTEIN During your visit today, we recorded the following information about you: Pulse Blood pressure Weight Height 84/minute 116/87 113.4 kg 1.981 m Abby Bernstein APRN.CNP 02/12/2025 3:20 PM Signed [facility] Follow Up Yoli Antunez is a 69 year old male who presents today for follow up regarding OH Recording using ambient AI software for draft documentation of the visit was discussed with the patient/authorized sales representative graphic art; all questions welcomed and answered. Patient/authorized sales representative graphic art agreed to proceed PMH: AAA Arthritis CKD state 3 CAD Personal history of smoking GERD GOUT HLD HTN Hypothyroid ADA with BIPAP RLS TIA Chart Review: 11/10/2024 - NeuromuscularAbby APRN.CNP ASSESSMENT Yoli Antunez is a 69 year [...] that time. 3.Follow up in 3 months ---- Sheldon Hudson MD Mr. Antunez is a right-handed 69 year old year old male with Progressive gait instability and dizziness and OH since 2021 who was referred for possible parkinsonism, but also has weakness of his bilateral proximal lower extremities and R ptosis that worsens with activity. On exam, he did have hypomimia, loss of voice modulation, some mild bradykinesia affecting R>L side, possibly some mild rigidity of the BUE only with activation, and reduced R arm swing. He does note a rest tremor at home. At this time, he does not have enough features on exam to make a diagnosis, so we will get a DaTscan. Differential includes IPD vs MSA given OH, but he does not have any other autonomic features, but does have falls. If DaTscan positive for a neurodegenerative disorder, this would not explain the R eye ptosis or proximal LE weakness for which he follows with NM. The following are the current problems noted and addressed during this visit: Abnormality of gait and mobility (primary encounter diagnosis) Falls frequently Orthostatic hypotension Plan 01/07/2025 Visit: 1. Abnormality of gait and mobility (R26.9) 2. Falls frequently (R29.6) Chronic gait disturbance, shuffling, and forward falls approximately once per month over the past 2-3 years, with subtle bradykinesia and reduced right arm swing on exam. Differential includes Parkinsonian syndrome, though findings are mild and do not fully meet diagnostic criteria. - Ordered EFRAÍN scan to assess for Parkinsonian syndrome (more content not included)...NormalMercy Health Defiance Hospital ClevelandOrders Onlyon 44-45-0113Hjhikh Only [id number] Yoli Antunez Jr. 1955 M Date Provider Department Center 02/05/2025 LALITO MCDUFFIE [facility] Family History Problem Relation Age of Onset Hypertension Mother Cancer Mother Stroke Mother Hypertension Father Aortic aneurysm Father Cancer Father Aortic aneurysm Paternal Grandfather Sudden Neg Hx Family Status - Relation Status Age at Mother Father Paternal Grandfather Neg HxNormalUniversity of Mission Regional Medical CenterNM brain spect datscanon 30-18-6411RD brain spect datscanOHIO [place] [address] Nuclear Medicine Report Signed Patient: Yoli Antunez Jr MR#: [id number] : 1955 Acct:[id number] Age/Sex: 69 / M ADM Date: 01/29/25 Loc: [place] Room: Type: [facility] Attending Dr: Maryann Armstrong MD Copies to: NON STAFF Chaz Smith Jr, DO Umar Shuaib, MD Ordering Provider: NON STAFF Date of Service: 01/29/25 NM/NM brain spect datscan: R26.[address] Maryann Armstrong M.D [facility] Nuclear medicine Efraín scan. Reason for exam: Abnormal gait and mobility. TECHNIQUE: Planar imaging of the brain was performed after administration of 5.3 mCi of I-123 Efraín. Findings: There appears to be blunting of the activity involving the basal ganglia left greater than right suggestive of parkinsonian syndrome. NM/NM brain spect datscan IMPRESSION: Abnormal Efraín scan. Impression dictated by: Chaz Smith Jr., D.O. 01/29/2025 12:56 PM Dictation Location: [place] [address] Transcribed By: [facility] 01/29/25 1256 Dictated By: Chaz Smith Jr, DO 01/29/25 1246 Signed By: 01/29/25 1256JudithIredell [facility] Hospital Physician GroupCNPNon [id number] (NREUS2) HARMONYSUSHILAYOLI ([id number]) 1955 M Date Time Provider Department 01/19/25 SHELDON HUDSON NREUS2 During your visit today, we recorded the following information about you: Marybeth Quezada 01/19/2025 1:09 PM Signed [facility] phoned - they are unable to do the CT with the DaTScan and want to know if ok to just do DaTScan - if so they need an updated order faxed to them. [facility] (f) [phone] (p) [phone] Pt is already scheduled and they have to order they need an answer within 24 hours to order what is needed. Maryann Armstrong MD 01/19/2025 3:30 PM Signed It would be fine. We don't have a Efraín scan without CT in our Epic, but I can just write that it's ok to do without CT in the comments. Cj Pickens 01/20/2025 1:36 PM Signed Order was faxed Allergies As of Date: 01/19/2025 Noted Allergy Reaction PENICILLINS 09/12/2000 16 - Unknown TIKOSYN (DOFETILIDE) 07/26/2022 14 - Other: See Comments Comments: Aphasia, dizzy, muscle cramps VANCOMYCIN 07/26/2022 10 - Anaphylaxis Date Reviewed: 01/07/2025 Reviewed by: Vishal Alston MA - Fully Assessed Reason for Visit: Orders [681] Primary Visit Diagnosis:Abnormality of gait and mobility [R26.9] Order(s):NM BRAIN TREMOR SPECT/CT [9386995] Order #: [id number] FUTURE Prescriptions as of 01/20/2025 - sotalol (BETAPACE) 120 mg tablet Take 120 mg by mouth every 12 hours. - magnesium oxide (MAG-OX) 400 mg (241.3 [...] at bedtime. Problem List As Of Date 01/19/2025 Noted Resolved TENSION HEADACHE [G44.209] Retinal detachment, [...] without aura, with intractable*05/31/2022 Encounter Status:Closed by MARYANN ARMSTRONG MD on [facility]/25[facility] [id number] Yoli Antunez Jr. 1955 M Date Provider Department Center 01/19/2025 Guera-YANDEL SHEN [facility] Family History Problem Relation Age of Onset Hypertension Mother Cancer Mother Stroke Mother Hypertension Father Aortic aneurysm Father Cancer Father Aortic aneurysm Paternal Grandfather Sudden Neg Hx Family Status - Relation Status Age at Mother Father Paternal Grandfather Neg Hx Level of Service:92006 [place] OFFICE/OUTPATIENT ESTABLISHED MOD MDM 30 MIN (25) Reason for Visit and Comments: Follow-up [075547] - Patient is here today for a follow up [facility] ER on 01/10/2025. Patient states if he does anything at all he gets chest pain, SOB, blood pressure drops, dizziness/lightheadedness, which causes him to fall, profuse sweating, thinks he had about of A-Fib, patient doesn't feel is pacemaker is kicking in when his blood pressure drops down. Atrial Fibrillation [80] Hypertension [560914] Coronary Artery Disease [187] Transient Ischemic Attack [275721] Hyperlipidemia [182] Chest Pain [059995] LVH [Other] Fatigue [46] Shortness of Breath [865400]NormalMcCullough-Hyde Memorial HospitalCNPNon [id number] (NREUS2) YOLI ANTUNEZ ([id number]) 1955 M Date Time Provider Department 01/11/25 SHELDON HUDSON NREUS2 During your visit today, we recorded the following information about you: [facility] Prague[facility]beth 01/11/2025 10:45 AM Signed Pt phoned - [facility] needs a faxed request for MRI brain image to be pushed over from June 2024. [facility] (f) [phone] Tristen Pickensgertrude Isauro 01/15/2025 11:50 AM Signed Request faxed Allergies As of Date: 01/11/2025 Noted Allergy Reaction PENICILLINS 09/12/2000 16 - Unknown TIKOSYN (DOFETILIDE) 07/26/2022 14 - Other: See Comments Comments: Aphasia, dizzy, muscle cramps VANCOMYCIN 07/26/2022 10 - Anaphylaxis Date Reviewed: 01/07/2025 Reviewed by: Vishal Alston MA - Fully Assessed Reason for Visit: Imaging Request [Other] Cmt: [facility] Prescriptions as of 01/15/2025 - sotalol (BETAPACE) 120 mg tablet Take 120 mg by mouth every 12 hours. - magnesium oxide (MAG-OX) 400 mg (241.3 [...] at bedtime. Problem List As Of Date 01/11/2025 Noted Resolved TENSION HEADACHE [G44.209] Retinal detachment, [...] without aura, with intractable*05/31/2022 Encounter Status:Closed by CJ PICKENS on 01/15/25[facility] [id number] Visit (NREUS2) YOLI ANTUNEZ ([id number]) 1955 M Date Time Provider Department 01/07/25 4:00 PM SHELDON HUDSON NREUS2 During your visit today, we recorded the following information about you: Pulse Blood pressure 82/minute 122/84 Sheldon Hudson MD 01/07/2025 4:37 PM Signed [facility] - NEW PATIENT EVALUATION Recording using ambient StartWire software for draft documentation of the visit was discussed with the patient/authorized sales representative graphic art; all questions welcomed and answered. Patient/authorized sales representative graphic art agreed to proceed Primary Movement Disorders Neurologist: Sheldon Hudson MD Primary Movement Disorders DEBBI: Not yet assigned Referring Provider: Abby Bernstein [address] [facility] [address] Primary Care Provider: Radha Burris MD [address] [facility] [id number] Dear Abby Bernstein: Thank you for referring [...] Row Office Visit from 01/07/2025 in [facility] Appointment from 01/04/2025 in [facility] Global Physical Health T Score 39.8 39.8 Global Mental Health T Score 45.8 45.8 0-10 Standard Pain Scale 3 3 *PROMIS-10 scoring scale: mean = 50, over 50 is above average, under 50 is below average ALLERGIES Allergen Reactions Penicillins Unknown Tikosyn [Dofetilide] Other: See Comments Aphasia, dizzy, muscle cramps V (more content not included)...NormalSt. [facility] 82-55-4250Afxlqk-up [id number] Yoli Antunez Jr. 1955 M Date Provider Department Center 12/31/2024 Tami-MARQUITA VILCHIS [facility] Family History Problem Relation Age of Onset Hypertension Mother Cancer Mother Stroke Mother Hypertension Father Aortic aneurysm Father Cancer Father Aortic aneurysm Paternal Grandfather Sudden Neg Hx Family Status - Relation Status Age at Mother Father Paternal Grandfather Neg Hx Level of Service:81864 [place] OFFICE/OUTPATIENT ESTABLISHED MOD MDM [facility] ACETYLCHOLINE REC BINDING ABon 12-16-2024 [facility] ACETYLCHOLINE BINDING, QUALNegativeNegativeNOMS HealthcareComment on above: Anti-acetylcholine receptor binding antibody test is used as an aid in diagnosis of myasthenia gravis. A negative result cannot exclude myasthenia gravis. Clinical correlation is required.[facility] ACHR BIND AB SER-SCNC<0.02NINF - 0.21 nmol/LNOMS HealthcareSpecimen Type: BLOOD SPECIMEN Ordering Facility: [facility] Address: [address] [place] [address] Original Ordering Provider: ABBY GARCIA HealthcareACETYLCHOLINE REC BINDING ABon [id number] BINDING, QUALNegativeNormalNegative [facility]Comp[facility] on above:Order Comment: Specimen Type: BLOOD SPECIMEN Ordering Facility: [facility] Address: [address] [place], [place] [address]Result Comment: Anti-acetylcholine receptor binding antibody test is used as an aid in diagnosis ofmyasthenia gravis. A negative result cannot exclude myasthenia gravis. Clinical correlation is required.Performed By: #### ACHRAB #### [facility] CLIA [id number] [address] [place] [address] STATES [facility] LONG ISLAND HOSPITALAcetylcholine receptor binding Ab (S) [Moles/Vol]<0.02Normal<0.21[facility] on above:Order Comment: Specimen Type: BLOOD SPECIMEN Ordering Facility: [facility] Address: [address] [place], [place] [address]Performed By: #### ACHRAB #### [facility] CLIA [id number] [address] [place] [address] [place] OF AMERICACNPNon [id number] Telephone (NENMMN) YOLI ANTUNEZ ([id number]) 1955 M Date Time Provider Department 12/15/24 DAY LEXIYRIS Peoples NENMMN During your visit today, we recorded the following information about you: Shaylee Sweet 12/15/2024 11:39 AM Signed Type of record received: Labs Records received from: [employer] Records received via: Faxed Records scanned into Localo: Yes Records have been forwarded to: Day Allergies As of Date: 12/15/2024 Noted Allergy Reaction PENICILLINS 09/12/2000 16 - Unknown TIKOSYN (DOFETILIDE) 07/26/2022 14 - Other: See Comments Comments: Aphasia, dizzy, muscle cramps VANCOMYCIN 07/26/2022 10 - Anaphylaxis Date Reviewed: 11/10/2024 Reviewed by: Belle Carmona OCCA - Fully Assessed Reason for Visit: Received Outside Medical Records [3576] Prescriptions as of 12/16/2024 - sotalol (BETAPACE) [...] intractable*05/31/2022 Encounter Status:Closed by SHAYLEE SWEET on 12/16/24[facility] 02-51-5661JGUIAetpol Visit (NENYMN) YOLI ANTUNEZ ([id number]) 1955 [place]le Date Time Provider Department 11/10/24 11:45 AM [facility] During your visit today, we recorded the following information about you: Pulse Blood pressure Weight Height 83/minute 127/86 111.1 kg 1.981 m Lexi Bernsteinyris Peoples APRN.WORKFORCE CONSULTANT 11/10/2024 1:31 PM Signed [facility] Follow [...] He was seen by Dr. Vilchis at [facility] who would like to place a [...] the dizzy spells at (more content not included)...NormalMercy Health Defiance Hospital ClevelandOrders Onlyon 51-56-3702Lgxowe Only [id number] Yoli Antunez JrAmarjit 1955 M Date Provider Department Center 11/06/2024 LALITO MCDUFFIE [facility] Family History Problem Relation Age of Onset Hypertension Mother Cancer Mother Stroke Mother Hypertension Father Aortic aneurysm Father Cancer Father Aortic aneurysm Paternal Grandfather Sudden Neg Hx Family Status - Relation Status Age at Mother Father Paternal Grandfather Neg HxNormalUniversity Regency Hospital CompanyOperative Reporton 10-21-2024 Operative ReportOperative Report SURGERY DATE: 10/07/2024 TIME: 2:30 p.m. [...] with a history of chronic maxillary sinusitis thatexists as a result of a piece of tooth which was extracted remaining in the maxillary sinus resulting in infection. The patient has been managed as an outpatient with antibiotic only to have persistent evidence of the piece of tooth in the floor of the sinus as well as congestion. Intraoperatively,there was severe deviation of the nasal septum to the right with a septal spur formation. The maxillary sinus was found to have extensive amounts of inflammatory debris. The fragment of tooth that remained in the maxillary sinus was imbedded in bone and could not be mobilized. PROCEDURE: Yoli was brought to the Operating Room Suite at the [facility] at which time general anesthesia was administered [...] any ulcer, mass, or lesion. Turbinate was foundto be hypertrophic on that side. The scope was then removed. The scope was then inserted into the right nasal airway. Severe deviation of the septum superiorly and posteriorly was noted on that side.This resulted in significant limitation of access to the maxillary sinus. The mucosa of the septum as well as the middle turbinate were locally injected with 1% lidocaine with epinephrine. With this completed, an anterior incision was created on the mucosal septum anterior to the area ofdeviation. The mucosa was then elevated off the bone and cartilage of the septum. The anterior aspect of this elevation was then scored, and the opposite soft tissues were elevated off the septal bone and cartilage. Portions of the septum were then removed using biting forceps and grasping forceps.This was completed from an anterior to posterior direction. A second access incision was placed more posteriorly to access the septal spur. With the portions of cartilage and bone removed, the mucosal flaps were put back into anatomical position. Significant improvement of the nasal airway was appre ciated. With this completed, attention was then turned toward the sinus. Nose was suctioned of all residualsecretions. The middle turbinate was medialized. Uncinate process identified. The uncinate was thenpartially removed using back- biting forceps as well as microdebrider. The uncinate process was removed. There was significant inflammatory mucosa around the area of the maxillary sinus ostium. The maxillary sinus was then entered into under image guidance, and using automated microdebrider the opening into the maxillary sinus was enlarged. Copious amounts of inflammatory disease were removed fromthe maxillary sinus. The sinus was irrigated. Using 30- and 70-degree endoscopes, the mucosa was vis ualized. Using instrumentation the fragment of tooth was [...] to Postanesthesia Care Unit in stable and satisfactorycondition. Hussain Quezada Dictated: 10/07/2024 [id number] Transcribed: 10/07/2024NoSt. Elizabeth HospitalComment on above:Result Comment: Electronically Signed By: Lalito Miller DO\.br\Date and Time Signed: 10/21/24 08:30 EDTH&P Updateon 10-13-2024H&P UpdateH&P Update Patient: YOLI ANTUNEZ JR Age: 69 years Sex: Male : 1955 Associated Diagnoses: None Author: Lalito Miller DO Postoperative Information Preoperative Diagnosis: odontogenic sinusitis, right maxillary Deviated nasal septum. Postoperative Diagnosis: same. Performed by: Lalito Miller DO. Estimated Blood Loss: 50 ml. Complications: None. endoscopic septoplasty Image guided right maxillary antrostomy with excision Anesthesia type: General.[facility] SystemComment on above: Result Comment: wrong folder Electronically Signed By: Lalito Miller DO\.br\Date and Time Signed: 10/07/24 14:43 EDTOrders Onlyon 57-24-1153Stphrc [id number] Yoli Antunez Jr. 1955 M Date Provider Department Center 10/13/2024 Jan-[facility] Family History Problem Relation Age of Onset Hypertension Mother Cancer Mother Stroke Mother Hypertension Father Aortic aneurysm Father Cancer Father Aortic aneurysm Paternal Grandfather Sudden Neg Hx Family Status - Relation Status Age at Mother Father Paternal Grandfather Neg HxNormalUniversity of St. Luke[facility] Medical Centerurgical Pathology Reporton [id number] Pathology Report[address] [place] [address]- Surgical Pathology Report Collected Date/Time: 10/07/2024 14:44 EDT Pathologist: Mika VAZQUEZ PhD, Kulwant Hinojosa Received Date/Time: 10/08/2024 08:22 EDT Lalito Miller DO, DO, Paul S 07 Surgical Pathology [...] recognition technology and might contain unintended computerized turn supervisor errors.Trinity Health SystemComment on above:Performed By: #### [id number] #### [facility] [address] [place] [address] 52246Kgmr OR Intraoperative Recordon 57-19-6313Umsc OR Intraoperative RecordMain OR Intraoperative Record IntraOp Document Type FT Summary Primary Physician: Lalito Miller DO Finalized Date/Time: 10/08/24 11:28:03 Pt. Name: YOLI ANTUNEZ JR/Sex: 1955 Male Med Rec #: [id number] Physician: Lalito Miller DO Financial #: [id number] Pt. Type: A Room/Bed: [facility]04/22 Admit/Disch: 10/07/24 11:04:48 - 10/07/24 17:10:00 Institution: Case Times FT Entry 1 Patient Times In Room 10/07/24 12:51:00 Out Room 10/07/24 14:36:00 Procedure Times Start 10/07/24 13:12:00 Stop 10/07/24 14:26:00 Anesthesia Times Start 10/07/24 12:51:00 Stop 10/07/24 14:36:00 Last Modified By: Trisha Mcleod 10/07/24 14:40:22 Case Attendance FT Entry 1 Entry 2 Entry 3 Case Attendee Felice SCOTT, Bhavesh Miller DO, Lalito Abdi RN, Triny Nair Role Performed Anesthesiologist Surgeon - Primary Mold Operator - Relief Senior Vice President And Chief Information Officer Time In 10/07/24 12:51:00 10/07/24 12:51:00 10/07/24 [...] Madison A Role Performed Scrub - Relief Mold Operator - Primary Scrub - Primary Time In [...] Time Out Bhavesh Garnica, Given Participants Lalito Miller DO, Trinidad GONZALEZ, Rj Grover CST, Harsha Fisher Kelsie E, [...] Primary Procedure Yes No Primary Surgeon Lalito Miller DO, DO, Paul S Start 10/07/24 13:12:00 [...] Assessment (Pre Procedure) F (more content not included)...[facility] Health SystemDischarge Instructionson 37-05-7431Erwqjlhjv Instructions Discharge Instructions HARMONY PAGE YOLI M :1955 Visit Date:10/07/2024 Inpatient Discharge Instructions Your Care Team Admitting Physician - Lalito Miller DO Referring Physician - Lalito Miller DO Reason for Your Visit RIGHT CHRONIC SINUSITIS Your Diagnosis Acute post-operative pain Chronic right maxillary sinusitis Nasal septal deviation Tests Performed Pathology Tissue Exam -- Results Pending -- Please visit your patient portal for your results or contact your primary care physician. This Is Your Medications List acetaminophen-hydrocodone ([place] 325 mg-5 mg oral tablet) calcitriol (calcitriol [...] Appointments after Discharge Follow Up with Lalito Miller When: Where: [facility] [address] [place] [phone] Business (1) Medications What How Much When Why Instructions Next Dose New acetaminophen-hydrocodone ([place] 325 mg-5 mg oral tablet) 1 Tablets By Mouth Every 4 hours as needed for for pain Acute post-operative pain Duration: 7 Days Pickup at [facility] Unchanged calcitriol (calcitriol 0.25 mcg Cap) 2 [...] 1 Tablets By Mouth Every 5 minutes asneeded for Chest pain Unchanged pramipexole (pramipexole 1 mg Tab) 2 Tablets By Mouth Once a day (in the evening) Unchanged sotalol (sotalol 120 mg Tab) 1 Tablets By Mouth 2 times a day Pharmacy Information [facility]: [address] [place], [place] [phone] Test Results No qualifying data available. Allergies [...] High blood pressure Kidney disease Education Materials [place], [place] Lalito Miller, DO FUNCTIONAL ENDOSCOPIC SINUS SURGERY INFORMATION SHEET WHY DO I NEED FUNCTIONAL ENDOSCOPIC SINUS SURGERY? Your doctor has recommended functional endoscopic sinus surgery because maximum medical therapy (longterm antibiotics, mucus thinners and nasal sprays) has failed to eradicate your chronic sinusitis. Review of your sinus CT scan as well as endoscopic examinations of the interior of your nose showspersistent sinus disease and/or anatomical abnormalities that prevent the sinuses from draining. HOW IS FUNCTIONAL ENDOSCOPIC SINUS SURGERY PERFORMED? If your nasal septum is deviated, it will need to be straightened in order to allow the passage of surgical instruments and to give you a good nasal airway. Then, using a highly magnified and brightly lighted telescope, the areas within your nose where thesinuses drain will be surgically opened in order [...] ARE INVOLVED IN FUNCTIONAL (more content not included)...Trinity Health SystemComment on above:Result Comment: Electronically Signed By: Shamika Price RN\.br\Date and Time Signed: 10/07/24 16:10 EDTH&P Updateon 10-07-2024H&P UpdateH&P Update Patient: YOLI ANTUNEZ JR Age: 69 years Sex: Male : 1955 Associated Diagnoses: None Author: Lalito Miller DO Postoperative Information Preoperative Diagnosis: odontogenic sinusitis, right maxillary Deviated nasal septum. Postoperative Diagnosis: same. Performed by: Lalito Miller DO. Estimated Blood Loss: 50 ml. Complications: None. endoscopic septoplasty Image guided right maxillary antrostomy with excision Anesthesia type: General.Trinity Health SystemComment on above: Result Comment: Electronically Signed By: Lalito Miller DO\.br\Date and Time Signed: 10/07/24 14:43 EDTInpatient Patient Summaryon 96-21-3818Lzpccskip Patient SummaryInpatient Patient Summary [place] [id number] [facility] Clinical Discharge Instructions PERSON INFORMATION Name: YOLI ANTUNEZ JR [facility]#:[id number] PHYSICIANS Admitting Physician: Lalito Miller DO Attending Physician: Lalito Miller DO PCP: RADHA BURRIS MD Discharge Diagnosis: Chronic right maxillary sinusitis; Nasal septal deviation Comment: PATIENT EDUCATION INFORMATION Instructions: [place] Information 2 (Custom) Medication Leaflets: Follow up: With: Address: When: Lalito Miller [facility] [address] [place] [phone] Business (1) MEDICATION LIST New Medications [facility], [address] [place], [place] [phone], [phone] acetaminophen-hydrocodone ([place] 325 mg-5 mg oral tablet) 1 Tablets [...] Tablets By Mouth 2 times a day. Comment:Trinity Health SystemMain OR PACU I Recordon 00-01-6743Yxaj OR PACU I RecordMain OR PACU I Record PACU Phase I Document Type FT Summary Primary Physician: Lalito Miller DO Finalized Date/Time: 10/07/24 16:07:17 Pt. Name: HARMONY PAGE YOLIGIANA Chandler/Sex: 1955 Male Med Rec #: [id number] Physician: Lalito Miller DO Financial #: [id number] Pt. Type: A Room/Bed: [facility] Admit/Disch: 10/07/24 11:04:48 - Institution: Case Times [...] individualized perioperative plan of care The patient's rightto privacy is maintained The patient's value system, [...] with or improved from baseline levels established preoperativelyThe patient's cardiovascular status is consistent with or improved from baseline levels established preoperatively The patient's cardiovascular status is consistent with or improved from baseline levels established preoperatively The patient demonstrates and/or reports adequate pain control throughout the perioperative period The patient received appropriate medication(s), safely administered during the perioperativeperiod Acuity Level PACU I FT Entry 1 Start Time 10/07/24 14:40:00 Stop Time 10/07/24 15:20:00 Acuity Level Acuity Level I Last Modified By: Radha Barry RN 10/07/24 16:07:13 Finalized By: Radha Barry RN Document Signatures Signed By: Radha Barry RN 10/07/24 16:07Trinity Health SystemMain OR PACU II Recordon 62-90-5002Nhrg OR PACU II RecordMain OR PACU II Record PACU Phase II Document Type FT Summary Primary Physician: Lalito Miller DO Finalized Date/Time: 10/07/24 17:19:40 Pt. Name: MYKELDIEGOYOLI Schuler JR./Sex: 1955 Male Med Rec #: [id number] Physician: Lalito Miller DO Financial #: [id number] Pt. Type: A Room/Bed: [place] [address] Admit/Disch: 10/07/24 11:04:48 - Institution: Case Times [...] and monitors body temperature Evaluates postoperative respiratory statusEvaluates postoperative cardiac status Evaluates postoperative neurological status [...] individualized perioperative plan of care The patient's rightto privacy is maintained The patient's value system, [...] with or improved from baseline levels established preoperativelyThe patient's cardiovascular status is consistent with or improved from baseline levels established preoperatively The patient's neurological status is consistent with or improved from baseline levels established preoperatively The patient demonstrates and/or reports adequate pain control throughout the perioperative period The patient received appropriate medication(s), safely administered during the perioperativeperiod Finalized By: Polly Salgado RN Document Signatures Signed By: Polly Salgado RN 10/07/24 17:19NoSt. Elizabeth HospitalMain OR Preoperative Recordon 64-51-5475Oqlh OR Preoperative RecordMain OR Preoperative Record PreOp Document Type FT Summary Primary Physician: Lalito Miller DO Finalized Date/Time: 10/07/24 13:20:13 Pt. Name: YOLI ANTUNEZ JR/Sex: 1955 Male Med Rec #: [id number] Physician: Lalito Miller DO Financial #: [id number] Pt. Type: A Room/Bed: [place] [address] Admit/Disch: 10/07/24 11:04:48 - Institution: Case Times [...] Document Signatures Signed By: Trisha Mcleod 10/07/24 13:20NormalOhiohealth Marion General HospitalOutpatient Surgery Discharge Instructionon 35-91-6505Ctyffehffc Surgery Discharge InstructionOutpatient Surgery Discharge Instruction [address] [address] Patient Discharge Instructions PERSON INFORMATION Name: MYKELLUIS ANTONIO PAGESUSHILAYOLI M Date of : 1955 Current Date: 10/07/2024 14:50:50 PHYSICIANS Admitting Physician: Lalito Miller DO Discharge Diagnosis: Chronic right maxillary sinusitis; Nasal septal deviation YOLI ANTUNEZ JR has been given the following list of follow-up instructions, prescriptions, and patient education materials: PATIENT FOLLOW-UP INFORMATION Diet: Regular Discharge Activity: Resume normal activities in 24 hours Discharge Restrictions: No driving for 24 hrs Call Your Doctor For: Persistent or heavy bleeding, Temperature above 101.5 degrees, Severe pain atthe operative site Additional Instructions: Finish antibiotic Frequent [...] was present when discharge instructions were given Patient Signature Date Clinican/Nurse Signature Date Follow up: With: Address: When: Lalito Miller [facility] [address] [place] [phone] Business (1) Pharmacy Information: You may receive a survey from [email or web address] asking you to rate your care experience. Your feedback is important and will help us understand what we do well and how we can improve the quality of care we provide to you, your loved ones and our community. It???s an honor to serve you. Thank you for choosing [facility] HERE ARE THE MEDICATION CHANGES THAT OCCURRED DURING YOUR HOSPITAL STAY New Medications [facility], [address] [place] [phone], [phone] acetaminophen-hydrocodone ([place] 325 mg-5 mg oral tablet) 1 Tablets [...] times a day. PATIENT EDUCATION INFORMATION Instructions: [place], [place] Lalito Miller, DO FUNCTIONAL ENDOSCOPIC SINUS SURGERY INFORMATION SHEET WHY DO I NEED FUNCTIONAL ENDOSCOPIC SINUS SURGERY? Your doctor has recommended functional endoscopic sinus surgery because maximum medical therapy (oysterman antibiotics, mucus thinners and nasal sprays) has failed to eradicate your chronic sinusitis. Review of your sinus CT scan as well as endoscopic examinations of the interior of your nose showspersistent sinus disease and/or anatomical abnormalities that prevent the sinuses from draining. HOW IS FUNCTIONAL ENDOSCOPIC SINUS SURGERY PERFORMED? If your nasal septum is deviated, it will need to be straightened in order to allow the passage of surgical instruments and to give you a good nasal airway. Then, using a highly magnified and brightly lighted telescope, the areas within your nose where thesinuses drain will be surgically opened in order [...] the brain. Your d (more content not included)...Trinity Health SystemOffice Visiton 07-33-8069Zxtrrb-up [id number] Yoli Antunez Jr. 1955 M Date Provider Department Center 10/01/2024 [facility] Family History Problem Relation Age of Onset Hypertension Mother Cancer Mother Stroke Mother Hypertension Father Aortic aneurysm Father Cancer Father Aortic aneurysm Paternal Grandfather Sudden Neg Hx Family Status - Relation Status Age at Mother Father Paternal Grandfather Neg Hx Level of Service:50898 [place] OFFICE/OUTPATIENT ESTABLISHED MOD MDM 30 MIN Reason for Visit and Comments: Coronary Artery Disease [187] Chest Pain [214322] Hypotension [407] Atrial Fibrillation [80]NormalMcCullough-Hyde Memorial HospitalBMPon 18-41-8208Odaqf gap [Moles/Vol]12 mmol/LNormal6-16[facility] Comment on above:Performed By: #### [id number] #### [facility] [address] [place], [place] [address]JXY/Creat Ratio22 No QwkvlPlfn59-23MwjhicOhiohealth Marion General Hospital Comment on above:Performed By: #### [id number] #### [facility] [address] [place], [place] [address]Aujdnva [Mass/Vol]8.0 mg/dLLow8.9-11.1FUniversity Hospitals TriPoint Medical CenterComment on above:Performed By: #### [id number] #### [facility] [address] [place], [place] [address]Zlflwhfa [Moles/Vol]106 mmol/XXeppoq892-556HwncxjOhiohealth Marion General HospitalComment on above:Performed By: #### [id number] #### [facility] [address] [place], [place] [address]CU3 [Moles/Vol]25 mmol/JDtkbqx03-98PvldpdOhiohealth Marion General Hospital Comment on above:Performed By: #### [id number] #### [facility] [address] [place], [place] [address]Bofuuadusv [Mass/Vol]1.3 mg/dLNormal0.5-1.3FUniversity Hospitals TriPoint Medical CenterComment on above:Performed By: #### [id number] #### [facility] [address] [place], [place] [address]Qlbeprw [Mass/Vol]86 mg/lDBwrqur50-621GatgkoOhiohealth Marion General HospitalComment on above:Performed By: #### [id number] #### [facility] [address] [place], [place] [address]Usrpwiari [Moles/Vol]4.2 mmol/LNormal3.5-5.3FUniversity Hospitals TriPoint Medical CenterComment on above:Performed By: #### [id number] #### [facility] [address] [place], [place] [address]Owlxey [Moles/Vol]139 mmol/CIsewmz793-483XyqzrnOhiohealth Marion General HospitalComment on above:Performed By: #### [id number] #### [facility] [address] [place], [place] [address]Beaj nitrogen [Mass/Vol]29 mg/dLHigh5-21Ohio[facility] General HospitalComment on above:Performed By: #### [id number] #### [facility] [address] [place], [place] [address]ETV w/ Auto Diffon 77-80-6650Aicdyyxd Absolute0.0 E9/LNormal 0.0-0.2FUniversity Hospitals TriPoint Medical CenterComment on above:Performed By: #### [id number] #### [facility] [address] [place], [place] [address]Nzdhlttqk/100 WBC (Bld)0.6 %Normal0.0-2.0[facility] Marion General HospitalComment on above:Performed By: #### [id number] #### [facility] [address] [place] [address]Dgh Absolute0.2 E9/LNormal0.0-0.5FUniversity Hospitals TriPoint Medical Center Comment on above:Performed By: #### [id number] #### [facility] [address] [place] [address]Vpppacoykpc/100 WBC (Bld)4.0 %Normal0.0-8.0[facility] Marion General HospitalComment on above:Performed By: #### [id number] #### [facility] [address] [place] [address]Mvwqsfwgwfe distribution width (RBC) [Ratio]14.4 %High10.9-14.2 [facility] General HospitalComment on above:Performed By: #### [id number] #### [facility] [address] [place], [place] [address]Yszawcmthv (Bld) [Volume fraction]38.6 %Gmufxt64.7-49.0[facility] General HospitalComment on above:Performed By: #### [id number] #### [facility] [address] [place] [address]Cbuncrjuaz (Bld) [Mass/Vol]12.8 g/dLLow13.5-17.5FUniversity Hospitals TriPoint Medical CenterComment on above:Performed By: #### [id number] #### [facility] [address] [place] [address]Eaqmk Absolute1.7 E9/LNormal1.0-4.0[facility] Comment on above:Performed By: #### [id number] #### [facility] [address] [place] [address]Bpafweseobz/100 WBC (Bld)29.0 %Mhltup44.0-50.0[facility] General HospitalComment on above:Performed By: #### [id number] #### [facility] [address] [place] [address]PMP (RBC) [Entitic mass]27.5 akPihbgf54.0-34.0[facility] General HospitalComment on above:Performed By: #### [id number] #### [facility] [address] [place] [address]FNEQ (RBC) [Mass/Vol]33.3 g/tKPyjbmx78.4-36.0[facility] General HospitalComment on above:Performed By: #### [id number] #### [facility] [address] [place] [address]FAS (RBC) [Entitic vol]82.8 kKNhxmvr58.0-100.0[facility] General HospitalComment on above:Performed By: #### [id number] #### [facility] [address] [place] [address]Vvll Absolute0.9 E9/LNormal0.2-1.0[facility] Comment on above:Performed By: #### [id number] #### [facility] [address] [place] [address]Omhzysuyi/100 WBC (Bld)14.4 %High4.0-14.0[facility] General HospitalComment on above:Performed By: #### [id number] #### [facility] [address] [place], [place] [address]Jojfwj Absolute3.1 E9/LNormal2.0-7.5FUniversity Hospitals TriPoint Medical Center Comment on above:Performed By: #### [id number] #### [facility] [address] [place], [place] [address]Njckjb Auto52.0 %Mjnayg62.0-75.0[facility] Comment on above:Performed By: #### [id number] #### [facility] [address] [place], [place] [address]Aamvlowi668.0 E9/GDzuqwl792.0-500.0[facility] Comment on above:Performed By: #### [id number] #### [facility] [address] [place], [place] [address]Iqoadvup mean volume (Bld) [Entitic vol]9.0 fLNormal6.4-10.8 [facility] HospitalComment on above:Performed By: #### [id number] #### [facility] [address] [place], [place] [address]YZK9.7 E12/LNormal4.3-5.9[facility] General HospitalComment on above:Performed By: #### [id number] #### [facility] [address] [place] [address]QXJ3.0 E9/LNormal4.0-11.0[facility] General HospitalComment on above:Performed By: #### [id number] #### [facility] [address] [place], [place] [address]JPWXFIWUAPlrduyv By: SYSTEM SYSTEM on 26-41-1952Sjsdy gap [Moles/Vol]12 mmol/LNormal6 - 16 mEq/LRemisol ChemCalcium [Mass/Vol]8.0 mg/dLLow 8.9 - 11.1 mg/dLRemisol ChemChloride [Moles/Vol]106 mmol/AUkmuan673 - 111 mmol/L Remisol ChemCO2 [Moles/Vol]25 mmol/KIuxexi41 - 31 mmol/LRemisol ChemCreatinine [Mass/Vol]1.3 mg/dLNormal0.5 - 1.3 mg/dLRemisol ChemGFR/1.73 sq M.predicted MDRD (S/P/Bld) [Vol rate/Area]59 mL/min/1.73 s5Tlkxjf>=59mL/min/1.73 v5Tykksia Chem Glucose [Mass/Vol]86 mg/vMPsruvt18 - 199 mg/dLRemisol ChemPotassium [Moles/Vol] 4.2 mmol/LNormal3.5 - 5.3 mmol/LRemisol ChemSodium [Moles/Vol]139 mmol/LNormal 135 - 145 mmol/LRemisol ChemUrea nitrogen [Mass/Vol]29 mg/dLHigh5 - 21 mg/dL Remisol ChemUrea nitrogen/Creatinine [Mass ratio]22 mg/cyAvuy31 - 20Remisol Chem HEMATOLOGYOrdered By: SYSTEM SYSTEM on 89-65-1941Whfouvfae/100 WBC (Bld)0.6 % Normal0.0 - 2.0 %Remisol HemeBasophils/Leukocytes Auto (Bld) [Pure # fraction] 0.0 E9/LNormal0.0 - 0.2 E9/LRemisol HemeEosinophils (Bld) [#/Vol]0.2 E9/LNormal 0.0 - 0.5 E9/LRemisol HemeEosinophils/100 WBC (Bld)4.0 %Normal0.0 - 8.0 %Remisol HemeErythrocyte distribution width (RBC) [Ratio]14.4 %High10.9 - 14.2 %Remisol HemeHematocrit (Bld) [Volume fraction]38.6 %Meaklq07.7 - 49.0 %Remisol Heme Hemoglobin (Bld) [Mass/Vol]12.8 g/dLLow13.5 - 17.5 gm/dLRemisol HemeLymphocytes (Bld) [#/Vol]1.7 E9/LNormal1.0 - 4.0 E9/LRemisol HemeLymphocytes/100 WBC (Bld) 29.0 %Gyawyt97.0 - 50.0 %Remisol HemeMCH (RBC) [Entitic mass]27.5 xdDzmbjw15.0 - 34.0 pgRemisol HemeMCHC (RBC) [Mass/Vol]33.3 g/oQBvakce26.4 - 36.0 gm/dLRemisol HemeMCV (RBC) [Entitic vol]82.8 aZIxdjsr39.0 - 100.0 fLRemisol HemeMonocytes (Bld) [#/Vol]0.9 E9/LNormal0.2 - 1.0 E9/LRemisol HemeMonocytes/100 WBC (Bld)14.4 %High4.0 - 14.0 %Remisol HemeNeutrophils (Bld) [#/Vol]3.1 E9/LNormal2.0 - 7.5 E9/LRemisol HemeNeutrophils/100 WBC (Bld)52.0 %Krovey77.0 - 75.0 %Remisol Heme Platelet mean volume (Bld) [Entitic vol]9.0 fLNormal6.4 - 10.8 fLRemisol Heme Platelets (Bld) [#/Vol]202.0 E9/JEentot966.0 - 500.0 E9/LRemisol HemeRBC (Bld) [#/Vol]4.7 E12/LNormal4.3 - 5.9 E12/LRemisol HemeWBC corrected for nucl RBC Auto (Bld) [#/Vol]6.0 E9/LNormal4.0 - 11.0 E9/LRemisol HemeeGFRon 65-76-9995iPIO68 mL/min/1.73 b0Lyxnkq>=59Formerly [facility] Centerer Holy Cross HospitalComment on above:Performed By: #### [id number] ####[facility] [address] [place], [place] [address] 43-52-771753Wmzdaadsq echo result from 09/01/2024: NEETU Reveles MA Please let him know ECHO is good, things are unchanged/stable. Follow-up as scheduled or sooner if needed. Thanks! Patient informed. He has follow up with Harriet on 10/01/2024.[facility] HospitalCA ECHO DOPPLER COMPLETEon 30-00-4490[address] [address] Cardiology Report Signed Patient: YOLI ANTUNEZ MR#: [id number] : 1955 Acct:[id number] Age/Sex: 69 / M ADM Date: 09/01/24 Loc: CARD Attending Dr: YANDEL SHEN APRN Ordering Physician: YANDEL SHEN APRN Date of Service: 09/01/24 Procedure(s): CA echo doppler complete Accession Number(s): [id number] cc: RADHA BURRIS ; YANDEL SHEN APRN Patient Name: YOLI ANTUNEZ MR#: [id number] : 1955 Exam Date: 09/01/2024 Ordering Doctor: [...] on 09/02/2024 at 14 (more content not included)...TBHRadiology, Radiologist, - 09/02/2024 [place] [address] Cardiology Report Signed Patient: YOLI ANTUNEZ MR#: [id number] : 1955 Acct:[id number] Age/Sex: 69 / M ADM Date: 09/01/24 Loc: CARD Attending Dr: YANDEL SHEN APRN Ordering Physician: YANDEL SHEN APRN Date of Service: 09/01/24 Procedure(s): CA echo doppler complete Accession Number(s): [id number] cc: RADHA BURRIS ; YANDEL SHEN APRN Patient Name: YOLI ANTUNEZ MR#: [id number] : 1955 Exam Date: 09/01/2024 Ordering Doctor: [...] Dictated By: MONO CHRISTIE Signed By: 09/02/24 145 DD/ 145 TD/TT: Small Stock Facer: [facility] HealthcareRadiology Study observation (narrative)[facility] CenterCA ECHO DOPPLER COMPLETEOrdered By: Radiologist Radiology on 55-96-3687FRKI [facility] Work Phone: ct Maxillofacial region WO and W contrast Candace 34-37-7752MLYZE OF EXAM: CT SINUS WO IV CONTRAST [...] in approved by the interpreting radiologist. Shamika Arce MD - 08/21/2024 TITLE OF EXAM: CT [...] signed in approved by the interpreting radiologist. [facility] HealthcareRadiology Study observation (narrative)[facility] Maxillofacial region WO and W contrast IVOrdered By: Shamika Hung on 34-35-8145VFBX Healthcare Work Phone: CT SINUS WOon 06-33-0039LJ SINUS WOTITLE OF EXAM: CT SINUS WO IV CONTRAST [...] electronically signed in approved by the interpreting radiologist.NormalNot AvailableComment on above:Order Comment: DENTAL INFECTION ITPon 41-93-9815[place] [address] Cardiac Rehab Report Signed Patient: YOLI ANTUNEZ MR#: [id number] : 1955 Acct:[id number] Age/Sex: 69 / M ADM Date: 06/26/24 Loc: CR Attending Dr: YANDEL SHEN APRN Ordering Physician: YANDEL SHEN APRN Date of Service: 08/03/24 Procedure(s): ITP Accession Number(s): [id number] cc: [facility] Test Date: 2024-08-03 Pat Name: YOLI ANTUNEZ Department: Room: - Gender: Male Merchandising Lead: : 1955 Requested By: Yandel Shen Order Number: [id number] Reading MD: Adrian Russell Interpretive Statements Session Date: 08/03/2024 Patient stopping cardiac rehabilitation on his own. He is encouraged to re-enroll. Electronically Signed On 08-12-2024 10:34:15 EDT by Adrian Russell Dictated By: Adrian Russell D.O. Signed By: 08/12/24 1034 08/12/24 1034 DD/ 1216 TD/TT: Small Stock Facer:TBHRadiology, Radiologist, - 08/12/2024 [place] [address] Cardiac Rehab Report Signed Patient: YOLI ANTUNEZ MR#: [id number] : 1955 Acct:[id number] Age/Sex: 69 / M ADM Date: 06/26/24 Loc: CR Attending Dr: YANDEL SHEN APRN Ordering Physician: YANDEL SHEN APRN Date of Service: 08/03/24 Procedure(s): ITP Accession Number(s): [id number] cc: [facility] Test Date: 2024-08-03 Pat Name: YOLI ANTUNEZ Department: Room: - Gender: Male Merchandising Lead: : 1955 Requested By: Yandel Shen Order Number: [id number] Reading MD: Adrian Russell Interpretive Statements Session Date: 08/03/2024 Patient stopping cardiac rehabilitation on his own. He is encouraged to re-enroll. Electronically Signed On 08-12-2024 10:34:15 EDT by Adrian Russell Dictated By: Adrian Russell D.O. Signed By: 08/12/24 1034 08/12/24 1034 DD/ 1216 TD/TT: Small Stock Facer: DEVIN RubinITPOrdered By: Radiologist Radiology on 09-05-3385U[employer] Work Phone: MAGNESIUMon 76-47-6797Rlxppcbmx [Mass/Vol]2.3 mg/dL Normal1.5-2.5Quest DiagnosticsComment on above:Order Comment: COLLECTION KIT GIVEN TO PATIENT. PATIENT ADVISED TO RETURN. URINE VOLUME: NOTVPerformed By: #### 12256, 42735, 622, 66581 #### [facility] [address], [address] [place] [id number] Highway Patrol Commander: Janes SIERRA, INTACT WITHOUT CALCIUMon 08-04-2024 PARATHYROID HORMONE, INTACT9 pg/gWTzq47-37Pxwaa DiagnosticsComment on above: Result Comment: Interpretive Guide Intact PTH Calcium ------- Normal Parathyroid Normal Normal Hypoparathyroidism Low or Low Normal Low Hyperparathyroidism Primary Normal or High High Secondary High Normal or Low Tertiary High High Non-Parathyroid Hypercalcemia Low or Low Normal HighPerformed By: #### 67252, 05479, 622, 33041 #### [facility] [place] [address] [address] Patrol Commander: Janes Vasquez MDRENAL FUNCTION PANELon 59-38-7322Xkowcud [Mass/Vol]4.5 g/dLNormal3.6-5.1Quest DiagnosticsComment on above:Performed By: #### 82190, 16649, 622, 50254 #### [facility] of [place] [address] [address] Patrol Commander: Janes Vasquez MDCalcium [Mass/Vol]7.9 mg/dLLow8.6-10.3Quest DiagnosticsComment on above:Performed By: #### 21422, 83357, 622, 81106 #### [facility] of [place] [address] [address] Patrol Commander: Janes Vasquez MDChloride [Moles/Vol]107 mmol/FSrsnva99-025 Quest DiagnosticsComment on above:Performed By: #### 14274, 45400, 622, 13805 #### [facility] of [place] [address] [address] Patrol Commander: Janes Vasquez MDCO2 [Moles/Vol]24 mmol/VThmanv49-24Fzbls DiagnosticsComment on above:Performed By: #### 91005, 43780, 622, 91740 #### [facility] of [place] [address] [address] Patrol Commander: Janes Vasquez MDCreatinine [Mass/Vol]1.53 mg/dLHigh0.70-1.28 Quest DiagnosticsComment on above:Performed By: #### 67876, 56637, 622, 53684 #### [facility] of [place] [address] [address] Patrol Commander: Janes Vasquez MDGFR/1.73 sq M.predicted among non-blacks MDRD (S/P/Bld) [Vol rate/Area]48 mL/min/{1.73_m2}Low> OR = 60Quest DiagnosticsComment on above:Performed By: #### 91730, 31987, 622, 62655 #### [facility] [place] [address] [address] Patrol Commander: Janes Vasquez MDGlucose [Mass/Vol]142 mg/pZSiap14-20Zqlnv DiagnosticsComment on above:Result Comment: Fasting reference interval For someone without known diabetes, a glucose value >125 mg/dL indicates that they may have diabetes and this should be confirmed with a follow-up test.Performed By: #### 19598, 33750, 622, 13912 #### [facility] [place] [address] [address] Patrol Commander: Janes Vasquez MDPhosphate [Mass/Vol]4.3 mg/dLNormal2.1-4.3 Quest DiagnosticsComment on above:Performed By: #### 19599, 99125, 622, 48591 #### [facility] [place] [address] [address] Patrol Commander: Janes Vasquez MDPotassium [Moles/Vol]4.0 mmol/LNormal3.5-5.3 Quest DiagnosticsComment on above:Performed By: #### 86946, 94481, 622, 32606 #### [facility] [place] [address] [address] Patrol Commander: Janes Vasquez MDSodium [Moles/Vol]141 mmol/LEwyknq253-958Hnshl DiagnosticsComment on above:Performed By: #### 29659, 58912, 622, 11422 #### [facility] [place] [address] [address] Patrol Commander: Janes Vasquez MDUrea nitrogen [Mass/Vol]32 mg/dLHigh7-25Quest DiagnosticsComment on above:Performed By: #### 47302, 52910, 622, 18727 #### [facility] [address], [address] [place] [address] [address] Patrol Commander: Janes Vasquez MDUrea nitrogen/Creatinine [Mass ratio]21 mg/mg Normal6-22Quest DiagnosticsComment on above:Performed By: #### 26140, 13057, 622, 95729 #### [facility] [address], [address] [place] [address] Highway Patrol Commander: Janes Vasquez MDVITAMIN D,25-OH,TOTAL,IAon 16-26-2408YEDILMG D,25-OH,TOTAL,IA48 ng/iXFkhqrd90-933Dqyvp DiagnosticsComment on above:Result Comment: Vitamin D Status 25-OH Vitamin D: Deficiency: <20 ng/mL Insufficiency: 20 - 29 ng/mL Optimal: > or = 30 ng/mL For 25-OH Vitamin D testing on patients on D2-supplementation and patients for whom quantitation of D2 and D3 fractions is required, the QuestAssureD(TM) 25-OH VIT D, (D2,D3), LC/MS/MS is recommended: order code 29610 (patients >2yrs). See Note 1 Note 1 For additional information, please refer to http://education.Suagi.com/faq/QTF565 (This link is being provided for informational/ educational purposes only.)Performed By: #### 18890, 92578, 622, 13808 #### [facility] [address], [address] [place] [address] Highway Patrol Commander: Janes Vasquez MDITPon 99-25-4421Uuvuuwbzz Study observation (narrative)[facility] CenterMR BRAIN W AND WO CONTRASTon 74-48-5612EL BRAIN W AND WO CONTRASTMR BRAIN W AND WO CONTRAST 07/14/2024 10:36 [...] may be warranted. Electronically signed: Osmel Quinn MD.[facility] Comment on above:Order Comment: ORDER IN EPICITPon 19-10-4494[place] [address] Cardiac Rehab Report Signed Patient: YOLI ANTUNEZ MR#: [id number] : 1955 Acct:[id number] Age/Sex: 69 / M ADM Date: 06/26/24 Loc: CR Attending Dr: YANDEL SHEN APRN Ordering Physician: YANDEL SHEN APRN Date of Service: 07/02/24 Procedure(s): ITP Accession Number(s): [id number] cc: [facility] Test Date: 2024-07-02 Pat Name: YOLI ANTUNEZ Department: Room: - Gender: Male Merchandising Lead: : 1955 Requested By: Yandel Shen Order Number: [id number] Reading MD: LARA OJEDA Interpretive Statements Session Date: Electronically Signed On 07-02-2024 22:37:32 EDT by LARA OJEDA Dictated By: Lara Ojeda D.O. Signed By: 07/02/24223607/02/242236 DD/ 1138 TD/TT: Small Stock Facer:TBHRadiology, Radiologist, - 07/02/2024 [place] [address] Cardiac Rehab Report Signed Patient: YOLI ANTUNEZ MR#: [id number] : 1955 Acct:[id number] Age/Sex: 69 / M ADM Date: 06/26/24 Loc: CR Attending Dr: YANDEL SHEN APRN Ordering Physician: YANDEL SHEN APRN Date of Service: 07/02/24 Procedure(s): ITP Accession Number(s): [id number] cc: [facility] Test Date: 2024-07-02 Pat Name: YOLI ANTUNEZ Department: Room: - Gender: Male Merchandising Lead: : 1955 Requested By: Yandel Shen Order Number: [id number] Josy MD: LARA OJEDA Interpretive Statements Session Date: Electronically Signed On 07-02-2024 22:37:32 EDT by LARA OJEDA Dictated By: Lara Ojeda D.O. Signed By: 07/02/24223607/02/242236 DD/ 37 TD/TT: Small Stock Facer: DEVIN HealthcareRadiology Study observation (narrative)[facility] Medical CenterITPOrdered By: Radiologist Radiology on 83-06-1407AUIBMercy Hospital South, formerly [facility] Work Phone: PTH, INTACT (ICMA) AND IONIZED CALCIUMon 06-17-2024 Calcium [Mass/Vol]8.2 mg/dLLow8.6-10.3Quest DiagnosticsComment on above: Performed By: #### 56716 #### [facility] [address] [address] Patrol Commander: Janes Vasquez MDCALCIUM, IONIZED4.5 mg/dLLow4.7-5.5Quest DiagnosticsComment on above:Performed By: #### 79653 #### [facility] [place] [address] Highway Patrol Commander: Janes Vasquez MDPARATHYROID HORMONE, CCNDTF11 pg/sXDse32-25 Quest DiagnosticsComment on above:Result Comment: Interpretive Guide Intact PTH Calcium ------- Normal Parathyroid Normal Normal Hypoparathyroidism Low or Low Normal Low Hyperparathyroidism Primary Normal or High High Secondary High Normal or Low Tertiary High High Non-Parathyroid Hypercalcemia Low or Low Normal HighPerformed By: #### 17537 #### [facility] [address], [address] [place] [address] Highway Patrol Commander: Janes Rand 51-90-9365[place] [address] Cardiac Rehab Report Signed Patient: YOLI ANTUNEZ MR#: [id number] : 1955 Acct:[id number] Age/Sex: 69 / M ADM Date: 06/01/24 Loc: CR Attending Dr: YANDEL SHEN APRN Ordering Physician: YANDEL SHEN APRN Date of Service: 06/04/24 Procedure(s): [facility] Accession Number(s): [id number] cc: [facility] Test Date: 2024-06-04 Pat Name: YOLI ANTUNEZ Department: Room: - Gender: Male Merchandising Lead: : 1955 Requested By: Yandel Shen Order Number: [id number] Josy MD: LARA OJEDA Interpretive Statements Session Date: Electronically Signed On 06-04-2024 16:55:23 EST by LARA OJEDA Dictated By: Lara OjedaOAmarjit Signed By: 06/04/24165406/04/241654 DD/ 0734 TD/TT: Small Stock Facer:TBHRadiology, Radiologist, - 06/04/2024 The [place] [address] Cardiac Rehab Report Signed Patient: YOLI ANTUNEZ MR#: [id number] : 1955 Acct:[id number] Age/Sex: 69 / M ADM Date: 06/01/24 Loc: CR Attending Dr: YANDEL SHEN APRN Ordering Physician: YANDEL SHEN APRN Date of Service: 06/04/24 Procedure(s): ITP Accession Number(s): [id number] cc: [facility] Test Date: 2024-06-04 Pat Name: YOLI ANTUNEZ Department: Room: - Gender: Male Merchandising Lead: : 1955 Requested By: Yandel Shen Order Number: [id number] Reading MD: LARA OJEDA Interpretive Statements Session Date: Electronically Signed On 06-04-2024 16:55:23 EST by LARA OJEDA Dictated By: Lara Ojeda D.O. Signed By: 06/04/24165406/04/241654 DD/ 3 TD/TT: Small Stock Facer: DEVIN HealthcareRadiology Study observation (narrative)[facility] HealthcareITPOrdered By: Radiologist Radiology on 15-81-6576[facility] Work Phone: [phone] 38-80-378402Jto in cardiac rehab made aware. He will address this tomorrow when patient sees them and he'll let me know.[facility]36on 59-24-363370D offered Ranexa, he was not interested as he tried it in the past and it did not work. We can offer it again.[facility]36Dan in rehab made aware. He wasn't able to tolerate Imdur, but would he benefit from Ranexa?[facility]36on 77-84-130641Ord, unfortunately not much further we can do. He's in rehab so that we can try to help improve his symptoms.[facility]36Dan from [facility] Cardiac Rehab wanted you make you aware that patient is c/o daily chest pain and taking nitroglycerin daily. Stiven said patient doesn't seem concerned about this but he wanted to make us aware. I informed Stiven that unfortunately this is kind of Mr. Antunez's baseline. Any suggestions?[facility] CenterTelephoneon [id number] Yoli Antunez Jr. 1955 M Date Provider Department Center 05/25/2024 SHIVANI HAWKINS [facility] Hos Family History Problem Relation Age of Onset Hypertension Mother Cancer Mother Stroke Mother Hypertension Father Aortic aneurysm Father Cancer Father Aortic aneurysm Paternal Grandfather Sudden Neg Hx Family Status - Relation Status Age at Mother Father Paternal Grandfather Neg HxNormalUniversMartin Memorial HospitalITPon 81-42-2201Nbq [place] [address] Cardiac Rehab Report Signed Patient: YOLI ANTUNEZ MR#: [id number] : 1955 Acct:[id number] Age/Sex: 68 / M ADM Date: 05/12/24 Loc: CR Attending Dr: YANDEL SHEN APRN Ordering Physician: Lara Ojeda D.O. Date of Service: 05/12/24 Procedure(s): ITP Accession Number(s): [id number] cc: [facility] Test Date: 2024-05-12 Pat Name: YOLI ANTUNEZ Department: Room: - Gender: Male Merchandising Lead: : 1955 Requested By: LARA OJEDA Order Number: [id number] Josy MD: LARA OJEDA Interpretive Statements Session Date: Electronically Signed On 05-12-2024 21:01:24 EST by LARA OJEDA Dictated By: Lara Ojeda D.O. Signed By: 05/12/24210005/12/242100 DD/ 4 TD/TT: Small Stock Facer:TBHRadiology, Radiologist, - 05/12/2024 [place] [address] Cardiac Rehab Report Signed Patient: YOLI ANTUNEZ MR#: [id number] : 1955 Acct:[id number] Age/Sex: 68 / M ADM Date: 05/12/24 Loc: CR Attending Dr: YANDEL SHEN APRN Ordering Physician: Lara Ojeda D.O. Date of Service: 05/12/24 Procedure(s): ITP Accession Number(s): [id number] cc: [facility] Test Date: 2024-05-12 Pat Name: YOLI ANTUNEZ Department: Room: - Gender: Male Merchandising Lead: : 1955 Requested By: LARA OJEDA Order Number: [id number] Reading MD: LARA OJEDA Interpretive Statements Session Date: Electronically Signed On 05-12-2024 21:01:24 EST by LARA OJEDA Dictated By: Lara Ojeda D.O. Signed By: 05/12/24210005/12/242100 DD/ 4 TD/TT: Small Stock Facer: DEVIN HealthcareRadiology Study observation (narrative)DEVIN HealthcareITPOrdered By: Radiologist Radiology on 12-08-6971T[facility] Work Phone: ITPon 38-76-9729Yhf[place], [place] [address] Cardiac Rehab Report Signed Patient: YOLI ANTUNEZ MR#: [id number] : 1955 Acct:[id number] Age/Sex: 68 / M ADM Date: 05/07/24 Loc: CR Attending Dr: YANDEL SHEN APRN Ordering Physician: YANDEL SHEN APRN Date of Service: 05/07/24 Procedure(s): ITP Accession Number(s): [id number] cc: [facility] Test Date: 2024-05-07 Pat Name: YOLI ANTUNEZ Department: Room: - Gender: Male Merchandising Lead: : 1955 Requested By: Yandel Shen Order Number: [id number] Reading MD: LARA OJEDA Interpretive Statements Session Date: Electronically Signed On 05-07-2024 21:32:58 EST by LARA OJEDA Dictated By: Lara Ojeda D.O. Signed By: 05/07/24213205/07/242132 DD/ 24 TD/TT: Small Stock Facer:BARRETTadiolCain dean MD - 05/07/2024 [place] [address] Cardiac Rehab Report Signed Patient: YOLI ANTUNEZ MR#: [id number] : 1955 Acct:[id number] Age/Sex: 68 / M ADM Date: 05/07/24 Loc: CR Attending Dr: YANDEL SHEN APRN Ordering Physician: YANDEL SHEN APRN Date of Service: 05/07/24 Procedure(s): ITP Accession Number(s): [id number] cc: [facility] Test Date: 2024-05-07 Pat Name: YOLI ANTUNEZ Department: Room: - Gender: Male Merchandising Lead: : 1955 Requested By: Yandel Shen Order Number: [id number] Reading MD: LARA OJEDA Interpretive Statements Session Date: Electronically Signed On 05-07-2024 21:32:58 EST by LARA OJEDA Dictated By: Lara Ojeda D.O. Signed By: 05/07/24213205/07/242132 DD/ 142 TD/TT: Small Stock Facer: DEVIN HealthcareRadiology Study observation (narrative)[facility] HealthcareITPOrdered By: Radiologist Radiology on 67-71-3721TDUW Healthcare Work Phone: Office Visiton 11-34-3619Gtjqwl-up [id number] Yoli Antunez 1955 M Date Provider Department Center 04/28/2024 [facility]-YANDEL SHEN [facility] Family History Problem Relation Age of Onset Hypertension Mother Cancer Mother Stroke Mother Hypertension Father Aortic aneurysm Father Cancer Father Aortic aneurysm Paternal Grandfather Sudden Neg Hx Family Status - Relation Status Age at Mother Father Paternal Grandfather Neg Hx Level of Service:71107 [place] OFFICE/OUTPATIENT ESTABLISHED MOD MDM 30 MIN Reason for Visit and Comments: Coronary Artery Disease [187] Atrial Fibrillation [80] Chest Pain [998108]NormalUnWooster Community Hospital36on Post Discharge Call Good afternoon, I am Ruben Lopez RN a lead nurse from [facility]. I am calling you to [...] No Patient Name Yoli Antunez Jr. Date [facility]24 [id number] Yoli Antunez Jr. 1955 M Date Provider Department [place] 04/11/2024 CarolinaRUBEN MATHEW [facility] Family History Problem Relation Age of Onset Hypertension Mother Cancer Mother Stroke Mother Hypertension Father Aortic aneurysm Father Cancer Father Aortic aneurysm Paternal Grandfather Sudden Neg Hx Family Status - Relation Status Age at Mother Father Paternal Grandfather Neg HxNormalUniAndrew Ville [id number] patient is Moderately Stable - Low risk of patient condition [...] are monitored and maintained or improved Outcome: ProgressingNormalUniversMartin Memorial HospitalBASIC METABOLIC PANELon 04-44-5631Tlrho gap [Moles/Vol]12 mmol/LNormal7-20UnWooster Community HospitalComment on above:Performed By: #### LAB15 #### [facility] ([facility]) [address] [place] [address]Wakuyvv [Mass/Vol]7.7 mg/dLLow8.6-10.3UnWooster Community HospitalComment on above:Performed By: #### LAB15 #### [facility] ([facility]) [address] [place] [place], [place] [address]Tcjujovx [Moles/Vol]106 mmol/KFgyrnj56-782RvsnegltpfWooster Community HospitalComment on above:Performed By: #### LAB15 #### [facility] ([facility]) [address] [place], [place] [address]PK2 [Moles/Vol]26 mmol/PViucro62-41TaekwicxewWooster Community HospitalComment on above:Performed By: #### LAB15 #### [facility] ([facility]) [address] [place], [place] [address]Adbiheobcj [Mass/Vol]1.41 mg/dLHigh0.70-1.30UnWooster Community HospitalComment on above:Performed By: #### LAB15 #### [facility] ([facility]) [address] [place], [place] [address]DEXYHZEBFA FILTRATION RATE ML/MIN/1.73 SQ M.HQRRFBRGB36.6 mL/min/1.73m*2Low>60.0UnWooster Community HospitalComment on above:Result Comment: [facility]???s estimated glomerular filtration rate (eGFR) [...] potential consequences that do not disproportionately affect anyone group of individuals.Performed By: #### LAB15 #### [facility] ([facility]) [address] [place] [place], [place] [address]Mnbwpom [Mass/Vol]85 mg/gFBoddbl93-443ZlsbresvrpWooster Community HospitalComment on above:Performed By: #### LAB15 #### [facility] ([facility]) [address] [place], [place] [address]Ebqxgoogi [Moles/Vol]4.2 mmol/LNormal3.5-5.1UnWooster Community HospitalComment on above:Performed By: #### LAB15 #### [facility] ([facility]) [address] [place], [place] [address]Joiguj [Moles/Vol]140 mmol/MQlghxh865-851CyogxsyzauWooster Community HospitalComment on above:Performed By: #### LAB15 #### [facility] ([facility]) [address] [place], [place] [address]Lzli nitrogen [Mass/Vol]25 mg/dLNormal7-25UnWooster Community HospitalComment on above:Performed By: #### LAB15 #### [facility] ([facility]) [address] [place], [place] [address]GKPE NITROGEN/CREATININE (MASS RATIO) IN SER/PLAS17.7Normal [facility]de Memorial HospitalComment on above:Performed By: #### LAB15 #### [facility] ([facility]) [address] [place], [place] [address]68qf 89-55-123057Vzxgz Case Management Update Multidisciplinary rounds have been completed. Barriers [...] Level of Consultation Consultation and Management 04/09/24 0918NormalUniversMartin Memorial Hospital30The patient is Moderately Stable - Low risk of patient condition [...] are monitored and maintained or improved Outcome: ProgressingNormalUniversity of Mission Regional Medical CenterAbstracton [id number] Yoli Antunez Jr. 1955 M Date Provider Department Center 04/09/2024 3244-MARION MOSHER [facility] Family History Problem Relation Age of Onset Hypertension Mother Cancer Mother Stroke Mother Hypertension Father Aortic aneurysm Father Cancer Father Aortic aneurysm Paternal Grandfather Sudden Neg Hx Family Status - Relation Status Age at Mother Father Paternal Grandfather Neg HxNormalUniversMartin Memorial HospitalBASIC METABOLIC PANELon 95-79-2719Arbgs gap [Moles/Vol]12 mmol/LNormal7-20UnWooster Community HospitalComment on above:Performed By: #### LAB15 #### [facility] ([facility]) [address] [place] [place], [place] [address]Jeggvim [Mass/Vol]7.6 mg/dLLow8.6-10.3UnWooster Community HospitalComment on above:Performed By: #### LAB15 #### [facility] ([facility]) [address] [place] [address]Svuhtads [Moles/Vol]108 mmol/RPxhx81-330AzitlwgvsgWooster Community HospitalComment on above:Performed By: #### LAB15 #### [facility] ([facility]) [address] [place] [address]ID0 [Moles/Vol]25 mmol/SXegcyk24-58FvflzngpawWooster Community HospitalComment on above:Performed By: #### LAB15 #### [facility] ([facility]) [address] [place] [address]Ydkkskvqwd [Mass/Vol]1.34 mg/dLHigh0.70-1.30UnWooster Community HospitalComment on above:Performed By: #### LAB15 #### [facility] ([facility]) [address] [place] [address]LEISOGSMWB FILTRATION RATE ML/MIN/1.73 SQ M.SWANTYYLF47.0 mL/min/1.73m*2Low>60.0UnWooster Community HospitalComment on above:Result Comment: [facility]???s estimated glomerular filtration rate (eGFR) [...] potential consequences that do not disproportionately affect anyone group of individuals.Performed By: #### LAB15 #### [facility] ([facility]) [address] [place] [address]Xhrxlhd [Mass/Vol]86 mg/fKPgjqxv00-515VpnstwuxvoWooster Community HospitalComment on above:Performed By: #### LAB15 #### [facility] ([facility]) [address] [place] [address]Iybvecbkm [Moles/Vol]4.1 mmol/LNormal3.5-5.1UnWooster Community HospitalComment on above:Performed By: #### LAB15 #### [facility] ([facility]) [address] [place] [address]Mlwlrm [Moles/Vol]141 mmol/LAbxmde369-334YxadgscdbfWooster Community HospitalComment on above:Performed By: #### LAB15 #### [facility] ([facility]) [address] [place] [address]Vwyr nitrogen [Mass/Vol]27 mg/dLHigh7-25UnWooster Community HospitalComment on above:Performed By: #### LAB15 #### [facility] ([facility]) [address] [place] [address]UOAY NITROGEN/CREATININE (MASS RATIO) IN SER/PLAS20.1Normal [facility]-Hyde Memorial HospitalComment on above:Performed By: #### LAB15 #### [facility] ([facility]) [address] [place] [address]UYTPXDWvg [id number] Attestation signed by Erika Mesa MD at [...] Teaching Physician's Revisions: none Erika Mesa MD [place] Cardiology Cardiology Consult Note Reason for Consult: chest pain HPI: Yoli Antunez Jr. is a 68 y.o. male for primary hypertension, atrial fibrillation on sotalol status post watchman not on anticoagulation, sinus node dysfunction status post dual-chamber permanent pacemaker, coronary artery disease status post cardiac catheterization 08/2023, POTS who presented to [facility] ED with ongoing chest [...] 04/09/24 0409 -- - (more content not included)...NormalUnWooster Community HospitalTROPONIN Ion 74-52-5595Jnjjzexh I.cardiac [Mass/Vol]0.00 ng/mL Normal0.00-0.04UnWooster Community HospitalComment on above:Performed By: #### [id number] #### [facility] ([facility]) [address] [place], [place] [address]Ujalemny I.cardiac [Mass/Vol]0.00 ng/mLNormal0.00-0.04UnWooster Community HospitalComment on above:Performed By: #### [id number] #### [facility] ([facility]) [address] [place], [place] [address] [id number] patient is Moderately Stable - Low risk of patient condition declining or worsening The patient's goals for the shift include COMFORT The clinical goals for the shift include VSSNormalUniversity of Mission [facility]30The patient is Moderately Stable - Low risk of patient condition declining or worsening The patient's goals for the shift include COMFORT The clinical goals for the shift include VSSNormalUniversity of Mission Regional Medical CenterAPTTon 82-59-4040ODPIZBPCM PARTIAL THROMBOPLASTIN TIME IN PPP BY COAGULATION ASSAY31.1 SmgzpnxBjbpqi54.0-35.0UnWooster Community Hospital Comment on above:Result Comment: Clinical significance of the APTT is questionable in the presence of heparin.Performed By: #### [id number] #### [facility] ([facility]) [address] [place], [place] [address]V-LCWL NATRIURETIC PEPTIDEon 92-06-3726Ouzopbqfcpu peptide B (Bld) [Mass/Vol]66 pg/mLNormal0-100UnWooster Community HospitalComment on above:Performed By: #### [id number] #### [facility] ([facility]) [address] [place], [place] [address]UHLXT METABOLIC PANELon 15-62-4713Qjndh gap [Moles/Vol]13 mmol/L Normal7-20UnWooster Community HospitalComment on above:Performed By: #### [id number] #### [facility] ([facility]) [address] [address]Kyvixke [Mass/Vol]8.3 mg/dLLow8.6-10.3UnWooster Community HospitalComment on above:Performed By: #### [id number] #### [facility] ([facility]) [address] [place] [address]Sfubvblr [Moles/Vol]107 mmol/XQnrths15-991HipgtyngfyWooster Community HospitalComment on above:Performed By: #### [id number] #### [facility] ([facility]) [address] [place] [address]AT6 [Moles/Vol]24 mmol/DTenegk64-40ZdqqblxvazWooster Community HospitalComment on above:Performed By: #### [id number] #### [facility] ([facility]) [address] [place] [address]Fpdilcedbi [Mass/Vol]1.60 mg/dLHigh0.70-1.30UnWooster Community HospitalComment on above:Performed By: #### [id number] #### [facility] ([facility]) [address] [place] [address]ZKTNKBIPWE FILTRATION RATE ML/MIN/1.73 SQ M.YLODPIDUG22.1 mL/min/1.73m*2Low>60.0UnWooster Community HospitalComment on above:Result Comment: [facility]???s estimated glomerular filtration rate (eGFR) [...] potential consequences that do not disproportionately affect anyone group of individuals.Performed By: #### [id number] #### [facility] ([facility]) [address] [place] [address]Uhwljzp [Mass/Vol]85 mg/yJXodtqw92-412LfhkpuwadcWooster Community HospitalComment on above:Performed By: #### [id number] #### [facility] ([facility]) [address] [place] [address]Cyplvarnf [Moles/Vol]4.0 mmol/LNormal3.5-5.1UnWooster Community HospitalComment on above:Performed By: #### [id number] #### [facility] ([facility]) [address] [place] [place] [address]Wzxvru [Moles/Vol]140 mmol/AOwssir847-715DyjuedihdmWooster Community HospitalComment on above:Performed By: #### [id number] #### [facility] ([facility]) [address] [place] [place], [place] [address]Skup nitrogen [Mass/Vol]29 mg/dLHigh7-25UnWooster Community HospitalComment on above:Performed By: #### [id number] #### [facility] ([facility]) [address] [place], [place] [address]ULSZ NITROGEN/CREATININE (MASS RATIO) IN SER/PLAS18.1Normal [facility] HospitalComment on above:Performed By: #### [id number] #### [facility] ([facility]) [address] [place], [place] [address]IVC WITH AUTO DIFFERENTIALon 88-08-5327Rsjkmwfqy (Bld) [#/Vol] 0.05 10*3/uLNormal0.00-0.20UnWooster Community HospitalComment on above: Performed By: #### [id number] #### [facility] ([facility]) [address] [place], [place] [address]Tkpcwhmrg/100 WBC (Bld)0.7 %Normal0.0-1.0UnWooster Community HospitalComment on above:Performed By: #### [id number] #### [facility] ([facility]) [address] [place] [address]Hdenoahnvfm (Bld) [#/Vol]0.24 10*3/uLNormal0.00-0.50UnWooster Community HospitalComment on above:Performed By: #### [id number] #### [facility] ([facility]) [address] [place] [address]Lgplrxdyviv/100 WBC (Bld)3.6 %Normal0.0-6.0UnWooster Community HospitalComment on above:Performed By: #### [id number] #### [facility] ([facility]) [address] [place], [place] [address]Ovashteypwq distribution width (RBC) [Ratio]15.5 %High11.5-15.0 [facility] HospitalComment on above:Performed By: #### [id number] #### [facility] ([facility]) [address] [place], [place] [address]FRPQCFEXFQM MEAN CORPUSCULAR HEMOGLOBIN CONCENTRATION (G/DL) BY DSUBBYSWD78.6 g/bTUuhtpn55.0-35.0UnWooster Community HospitalComment on above:Performed By: #### [id number] #### [facility] ([facility]) [address] [place], [place] [address]Okzfxeonrc (Bld) [Volume fraction]42.7 %Oibwva09.0-55.0 [facility] HospitalComment on above:Performed By: #### [id number] #### [facility] ([facility]) [address] [place] [place], [place] [address]Szxdjiiubl (Bld) [Mass/Vol]13.9 g/zUVnclbi43.0-17.0UnWooster Community HospitalComment on above:Performed By: #### [id number] #### [facility] [address] [place] [place], [place] [address]Ixzhzwpc granulocytes (Bld) [#/Vol]0.05 10*3/uLNormal0.00-0.20 [facility] HospitalComment on above:Performed By: #### [id number] #### [facility] [address] [place] [place] [address]Dlmhqbsz granulocytes/100 WBC (Bld)0.7 %Normal0.0-1.0UnWooster Community HospitalComment on above:Performed By: #### [id number] #### [facility] ([facility]) [address] [facility] [place], [place] [address]Bwsrgupgazb (Bld) [#/Vol]1.73 10*3/uLNormal1.20-4.00UnWooster Community HospitalComment on above:Performed By: #### [id number] #### [facility] ([facility]) [address] [place], [place] [address]Lfearzvqrne/100 WBC (Bld)25.7 %Gpzhyw73.0-45.0UnWooster Community HospitalComment on above:Performed By: #### [id number] #### [facility] ([facility]) [address] [place], [place] [address]ZRQ (RBC) [Entitic mass]28.1 qnXuqbdz23.0-33.0UnWooster Community HospitalComment on above:Performed By: #### [id number] #### [facility] ([facility]) [address] [place], [place] [address]DZT (RBC) [Entitic vol]86.3 jSZmgezd28.0-98.0UnWooster Community HospitalComment on above:Performed By: #### [id number] #### [facility] ([facility]) [address] [place], [place] [address]Nuwehwitk (Bld) [#/Vol]0.58 10*3/uLNormal0.10-1.00UnWooster Community HospitalComment on above:Performed By: #### [id number] #### [facility] [address] [place] [address]Knbuwrnav/100 WBC (Bld)8.6 %Normal5.0-12.0UnWooster Community HospitalComment on above:Performed By: #### [id number] #### [facility] ([facility]) [address] [place] [address]Adjrpwsaeyv (Bld) [#/Vol]4.09 10*3/uLNormal1.60-7.60UnWooster Community HospitalComment on above:Performed By: #### [id number] #### [facility] ([facility]) [address] [place] [address]Ybunsiqmftw/100 WBC (Bld)60.7 %Lmigjj86.0-72.0UnWooster Community HospitalComment on above:Performed By: #### [id number] #### [facility] ([facility]) [address] [place] [address]DYZM (PER 100 WBCS) BY AUTOMATED COUNT0.0 %Rmohvn8GvdkpcvtiuWooster Community HospitalComment on above:Performed By: #### [id number] #### [facility] ([facility]) [address] [place] [address]ZTLDXOSYQ (10*3/UL) IN BLOOD AUTOMATED SIHAK925 10*3/uLNormal 150-400UnWooster Community HospitalComment on above:Performed By: #### [id number] #### [facility] ([facility]) [address] [place] [address]LHS (Bld) [#/Vol]4.95 10*6/uLNormal4.20-5.70UnWooster Community HospitalComment on above:Performed By: #### [id number] #### [facility] ([facility]) [address] [place] [address]BCS (Bld) [#/Vol]6.74 10*3/uLNormal4.00-10.60UnWooster Community HospitalComment on above:Performed By: #### [id number] #### [facility] ([facility]) [address] [place], [place] [address]CBQ CHEST W IV CONTRASTon 68-50-5509PLC CHEST W IV CONTRASTCTA chest: HISTORY: Chest pain. Evaluate for PE. [...] low as reasonably achievable. Electronically signed: Jeramie Gleason.NormalUnWooster Community Hospital D-DIMER, QUANTITATIVEon 32-91-2144HUSGIA D-DIMER (UG/L FEU) IN PLATELET POOR PLASMA0.27 mcg/mL FEUNormal0.27-0.49UnWooster Community HospitalComment on above:Order Comment: D-Dimer values of less than 0.50 ug/ml (FEU) are considered to be a negative predictor of thrombosis. However, the D-Dimer result should be used in conjunction with pretest probabilityand should not be used alone to diagnose a thrombotic event.Performed By: #### [id number] #### [facility] ([facility]) [address] [place], [place] [address]KPRQKItm 43-37-4100LWAUCLHe has complaints of CP and SOB for the past week. Pt has hx of afib and has a pacemaker. Pt states that MD had a concerning EKG and wanted the pt to get checked out.NormalUnAultman HospitalPROVon 20-57-4595WAIGTN History of Present Illness Chief Complaint Patient presents with Chest Pain Shortness of Breath Initial evaluation completed by Dr. Syd Mcgregor MD at 1535. Yoli Antunez . is a 68 y.o. y/o male presenting [...] SOB, and light headedness. Pt states his director patient performed an EKG and he had acute [...] MR HEAD ANGIO WO IV CONTRAST 07/09/[address] [facility] MR IMAGING MR NECK ANGIO WO IV CONTRAST 07/09/2022 MR NECK ANGIO WO IV CONTRAST 07/09/[address] [facility] MR IMAGING NECK SURGERY [...] ED Course as of 04/08/241920Apr 08, 2024 664 Pt was signed out to me by [...] Diagnosis includes but is not limited to NH, PE, costochondritis. Plan of Care: XR chest 1 view, CBC and differential, Basic metabolic panel, Troponin I, CBC auto differential, Protime-INR, APTT, B-type natriuretic peptide, D-dimer, quantitati (more content not included)...NormalUnWooster Community HospitalOffice Visiton 04-14-9947Lglfep-up [id number] Yoli Antunez 1955 M Date Provider Department Center 04/08/2024 Tami-MARQUITA VILCHIS [facility] Family History Problem Relation Age of Onset Hypertension Mother Cancer Mother Stroke Mother Hypertension Father Aortic aneurysm Father Cancer Father Aortic aneurysm Paternal Grandfather Sudden Neg Hx Family Status - Relation Status Age at Mother Father Paternal Grandfather Neg Hx Level of Service:69606 [place] OFFICE/OUTPATIENT ESTABLISHED MOD MDM 30 MIN Reason for Visit and Comments: Follow-up [683830] - Dizziness shortness of breathNormalUniversMartin Memorial HospitalPROTIME-INRon 14-66-5565WJH IN PPP BY COAGULATION ASSAY1.03Normal 0.90-1.10UnWooster Community HospitalComment on above:Result Comment: [facility] RECOMMENDED INR FOR WARFARIN THERAPY CONDITION INR PROPHYLAXIS OF VENOUS THROMBOSIS 2-3 (HIGH-RISK SURGERY) TREATMENT OF VENOUS THROMBOSIS 2-3 TREATMENT OF PULMONARY EMBOLISM 2-3 PREVENTION OF SYSTEMIC EMBOLISM: 2-3 ACUTE MYOCARDIAL INFARCTION TISSUE HEART VALVES VALVULAR HEART DISEASE ATRIAL FIBRILLATION RECURRENT SYSTEMIC EMBOLISM MECHANICAL HEART VALVE 2.5-3.5 FROM: ORAL ANTICOAGULANTS. MECHANISM OF ACTION, CLINICAL EFFECTIVENESS, AND OPTIMAL THERAPEUTIC RANGE. CHEST 1995;108:231S-246S.Performed By: #### [id number] #### [facility] (BEVIBHA) [address] [place], [place] [address]AWKOVNPQDDD TIME (PT) IN PPP BY COAGULATION ASSAY13.5 Seconds Fnkgks33.3-14.8UnWooster Community HospitalComment on above:Performed By: #### [id number] #### [facility] ([facility]) [address] [place], [place] [address]DJFCSHCX Ion 85-45-5489Rxxanjas I.cardiac [Mass/Vol]0.00 ng/mL Normal0.00-0.04UnWooster Community HospitalComment on above:Performed By: #### [id number] ####[facility] ([facility])[address] [place] [address] Troponin I.cardiac [Mass/Vol]0.01 ng/mLNormal0.00-0.04UnWooster Community HospitalComment on above:Performed By: #### [id number] ####[facility] ([facility])[address] [place], [place] [address]T. DIFFICILE PCRon 03-16-2024. DIFFICILE PCRNegativeNOMS HealthcareCLINISYNCNOMS HealthcareAbstracton [id number] Yoli Antunez Jr. 1955 M Date Provider Department Center 03/11/2024 3244-MARION MOSHER [facility]. Family History Problem Relation Age of Onset Hypertension Mother Cancer Mother Stroke Mother Hypertension Father Aortic aneurysm Father Cancer Father Aortic aneurysm Paternal Grandfather Sudden Neg Hx Family Status - Relation Status Age at Mother Father Paternal Grandfather Neg HxNormalUniversMartin Memorial HospitalOffice Visiton 91-55-8821Tjotlh- up [id number] Yoli Antunez Jr. 1955 M Date Provider Department Center 03/11/2024 287MARQUITA OLIVER [facility]. Family History Problem Relation Age of Onset Hypertension Mother Cancer Mother Stroke Mother Hypertension Father Aortic aneurysm Father Cancer Father Aortic aneurysm Paternal Grandfather Sudden Neg Hx Family Status - Relation Status Age at Mother Father Paternal Grandfather Neg Hx Level of Service:33017 [place] OFFICE/OUTPATIENT ESTABLISHED MOD MDM 30 [facility] HospitalCreatinine [Mass/volume] in Serum or Plasma Ordered By: Charlene Soria on 81-31-2721Oxijmaiiau [Mass/Vol]1.28 mg/dL0.70-1.30 [facility] CenterNo Panel InformationOrdered By: Charlene Soria on 25-08-9628Tmxwytxne GFR (CKD-EPI)> 60.0 mL/MinUniversity Hospitals Geneva Medical Center Pharmacy Creatinine Clearance (ChemN/AFUniversity Hospitals St. John Medical CenterUrea nitrogen [Mass/volume] in Serum or PlasmaOrdered By: Charlene Soria on 06-10-2023 Urea nitrogen [Mass/Vol]27 mg/dL7-[facility] Medical CenterCA ECHO DOPPLER COMPLETEon 88-87-9852[place]xx[place] [address] Cardiology Report Signed Patient: YOLI ANTUNEZ MR#: [id number] : 1955 Acct:[id number] Age/Sex: 68 / M ADM Date: 06/07/23 Loc: [place] Attending Dr: ELYSSA SOLANO Ordering Physician: ELYSSA SOLANO Date of Service: 06/07/23 Procedure(s): CA echo doppler complete Accession Number(s): [id number] cc: ELYSSA SOLANO ; RADHA BURRIS Patient Name: YOLI ANTUNEZ MR#: [id number] : 1955 Exam Date: 06/07/2023 Ordering Doctor: ELYSSA SOLANO ECHOCARDIOGRAM REPORT PROCEDURE: CA ECHO DOPPLER COMPLETE INDICATIONS: Aortic aneurysm, h/o atrial fibrillation COMPARISON: None. DESCRIPTION: COMPLETE ECHOCARDIOGRAM Real-time transthoracic echocardiography with 2D, M-mode, spectral and color flow Doppler performed. QUALITY: Technical quality was good. 78 , 245#, BSA 2.46 m2 LEFT VENTRICLE: Normal chamber size. Mild concentric left ventricular hypertrophy. Systolic function is at the lower limits of normal. LV EF: Low normal left ventricular ejection fraction, (50-55%). DIASTOLIC: Normal diastolic function. ATRIAL SEPTUM: Visually appears intact. LEFT ATRIUM: Moderate dilatation. RIGHT ATRIUM: Moderate dilatation. RIGHT VENTRICLE: Mild to moderate dilatation. Normal right ventricular systolic function. TRICUSPID VALVE: Normal mobility and thickness. No stenosis with mild regurgitation. No evidence of pulmonary hypertension. RVSP 31 mmHg MITRAL VALVE: Normal mobility and thickness. No evidence of mitral valve stenosis. There is no mitral annular calcification. Mild mitral regurgitation. AORTIC VALVE: Normal trileaflet appearance. No visible sclerosis. Normal leaflet mobility. No evidence of aortic valve stenosis. Mild aortic regurgitation. AORTIC ROOT: Aortic root is mildly to moderately dilated (4.4 cm), ascending aorta is mildly dilated (4.1 cm). PULMONIC VALVE: Normal thickness and mobility. No stenosis. Mild regurgitation. PERICARDIUM: No evidence of pericardial effusion. IVC: IVC is normal in size, does not fully collapse. PLEURA: CONCLUSION: 1. The left ventricle is normal in size and exhibits mild concentric hypertrophy with low normal systolic function. LVEF is 50 to 55%. 2. Mild to moderate right ventricular dilatation with normal systolic function. 3. Moderate biatrial dilatation. 4. Normal diastolic function. 5. Mild mitral, aortic, pulmonic and tricuspid regurgitation. 6. Normal right-sided pressures. 7. No pericardial effusion. Adult Echocardiography Procedure Report Left Ventricle LVEDD (3.7 - 5.6 cm): 5.20 cm LVESD (2.2 - 4.0 cm): 3.56 cm LVIVS thickness (0.6 - 1.2 cm): 1.14 cm LVPW thickness (0.5 - 1.0 cm): 1.15 cm e': 0.13 m/s E - e': 4.23 LVOT Max Gradient: 1.14 mm[Hg] LVOT Area (cm2): 0.53 m/s Peak Velocity (LVOT): 0.53 m/s Mean Velocity (LVOT): 0.42 m/s LVOT Diameter 2.55 cm Left Atrium LA Volume Index (2D A2C): 25.92 ml/m2 Left Atrium Systolic Dimension: 4.88 cm Mitral Valve MV E to A Ratio: 1.36 Mitral Valve A-Wave Peak Velocity: 0.40 m/s Mitral Valve E-Wave Peak Velocity: 0.55 m/s Right Ventricle Aorta AO Root Diam: 4.35 cm Ascending Ao Diam: 3.98 cm Aortic Valve AoV Area (Peak Andrey): 3.25 cm2, 3.25 cm2 AoV Area (VTI): 3.47 cm2, 3.47 cm2 Peak Velocity(Antegrade Flow): 0.84 m/s Peak Gradient(Antegrade Flow): 2.83 mm[Hg] Mean Velocity(Antegrade Flow): 0.56 m/s Mean Gradient(Antegrade Flow): 1.48 mm[Hg] Velocity Time Integral: 19.72 cm Tricuspid Valve Peak Velocity (Regurgitant Flow): 2.21 m/s, 4.11 m/s, 2.41 m/s Pulmonic Valve Peak Gradient: 2.27 mm[Hg], 3.17 mm[Hg] Right Atrium Right Atrium Systolic Pressure: 71.62 ml, 71.62 ml Dictated by: Mono Christie M.D. on 06/08/2023 at 10:13 Approved by: Mono Christie M.D. on 06/08/2023 at 10:26 (more content not included)...TBHRadiology, Radiologist, MD - 06/08/2023 [place] [address] Cardiology Report Signed Patient: YOLI ANTUNEZ MR#: [id number] : 1955 Acct:[id number] Age/Sex: 68 / M ADM Date: 06/07/23 Loc: [place] Attending Dr: ELYSSA SOLANO Ordering Physician: ELYSSA SOLANO Date of Service: 06/07/23 Procedure(s): CA echo doppler complete Accession Number(s): [id number] cc: ELYSSA SOLANO ; RADHA BURRIS Patient Name: YOLI ANTUNEZ MR#: [id number] : 1955 Exam Date: 06/07/2023 Ordering Doctor: ELYSSA SOLANO ECHOCARDIOGRAM REPORT PROCEDURE: CA ECHO DOPPLER COMPLETE INDICATIONS: Aortic aneurysm, h/o atrial fibrillation COMPARISON: None. DESCRIPTION: COMPLETE ECHOCARDIOGRAM Real-time transthoracic echocardiography with 2D, M-mode, spectral and color flow Doppler performed. QUALITY: Technical quality was good. 78 , 245#, BSA 2.46 m2 LEFT VENTRICLE: Normal chamber size. Mild concentric left ventricular hypertrophy. Systolic function is at the lower limits of normal. LV EF: Low normal left ventricular ejection fraction, (50-55%). DIASTOLIC: Normal diastolic function. ATRIAL SEPTUM: Visually appears intact. LEFT ATRIUM: Moderate dilatation. RIGHT ATRIUM: Moderate dilatation. RIGHT VENTRICLE: Mild to moderate dilatation. Normal right ventricular systolic function. TRICUSPID VALVE: Normal mobility and thickness. No stenosis with mild regurgitation. No evidence of pulmonary hypertension. RVSP 31 mmHg MITRAL VALVE: Normal mobility and thickness. No evidence of mitral valve stenosis. There is no mitral annular calcification. Mild mitral regurgitation. AORTIC VALVE: Normal trileaflet appearance. No visible sclerosis. Normal leaflet mobility. No evidence of aortic valve stenosis. Mild aortic regurgitation. AORTIC ROOT: Aortic root is mildly to moderately dilated (4.4 cm), ascending aorta is mildly dilated (4.1 cm). PULMONIC VALVE: Normal thickness and mobility. No stenosis. Mild regurgitation. PERICARDIUM: No evidence of pericardial effusion. IVC: IVC is normal in size, does not fully collapse. PLEURA: CONCLUSION: 1. The left ventricle is normal in size and exhibits mild concentric hypertrophy with low normal systolic function. LVEF is 50 to 55%. 2. Mild to moderate right ventricular dilatation with normal systolic function. 3. Moderate biatrial dilatation. 4. Normal diastolic function. 5. Mild mitral, aortic, pulmonic and tricuspid regurgitation. 6. Normal right-sided pressures. 7. No pericardial effusion. Adult Echocardiography Procedure Report Left Ventricle LVEDD (3.7 - 5.6 cm): 5.20 cm LVESD (2.2 - 4.0 cm): 3.56 cm LVIVS thickness (0.6 - 1.2 cm): 1.14 cm LVPW thickness (0.5 - 1.0 cm): 1.15 cm e': 0.13 m/s E - e': 4.23 LVOT Max Gradient: 1.14 mm[Hg] LVOT Area (cm2): 0.53 m/s Peak Velocity (LVOT): 0.53 m/s Mean Velocity (LVOT): 0.42 m/s LVOT Diameter 2.55 cm Left Atrium LA Volume Index (2D A2C): 25.92 ml/m2 Left Atrium Systolic Dimension: 4.88 cm Mitral Valve MV E to A Ratio: 1.36 Mitral Valve A-Wave Peak Velocity: 0.40 m/s Mitral Valve E-Wave Peak Velocity: 0.55 m/s Right Ventricle Aorta AO Root Diam: 4.35 cm Ascending Ao Diam: 3.98 cm Aortic Valve AoV Area (Peak Andrey): 3.25 cm2, 3.25 cm2 AoV Area (VTI): 3.47 cm2, 3.47 cm2 Peak Velocity(Antegrade Flow): 0.84 m/s Peak Gradient(Antegrade Flow): 2.83 mm[Hg] Mean Velocity(Antegrade Flow): 0.56 m/s Mean Gradient(Antegrade Flow): 1.48 mm[Hg] Velocity Time Integral: 19.72 cm Tricuspid Valve Peak Velocity (Regurgitant Flow): 2.21 m/s, 4.11 m/s, 2.41 m/s Pulmonic Valve Peak Gradient: 2.27 mm[Hg], 3.17 mm[Hg] Right Atrium Right Atrium Systolic Pressure: 71.62 ml, 71.62 ml Dictated by: Mono Christie M.D. on 06/08/2023 at 10:13 Approved by: Mono Christie M.D. on 06/08/2023 at 10:26 Dictated By: MONO CHRISTIE Signed By: 06/08/23 1027 DD/ 1026 TD/TT: Small Stock Facer: DEVIN [facility] HospitalRadiology Study observation (narrative)[facility] ECHO DOPPLER COMPLETEOrdered By: Radiologist Radiology on 05-47-5667XBJB [facility] Work Phone: nm ARASELI PERF SPECT REST STRon 95-07-9304[place] [address] Nuclear Medicine Report Signed Patient: YOLI ANTUNEZ MR#: [id number] : 1955 Acct:[id number] Age/Sex: 68 / M ADM Date: 06/07/23 Loc: [place] Attending Dr: ELYSSA SOLANO Ordering Physician: ELYSSA SOLANO Date of Service: 06/07/23 Procedure(s): NM araseli perf SPECT rest str Accession Number(s): [id number] cc: ELYSSA SOLANO ; RADHA BURRIS Patient Name: YOLI ANTUNEZ MR#: [id number] : 1955 Exam Date: 06/07/2023 Ordering Doctor: ELYSSA SOLANO RADIOLOGY REPORT PROCEDURE: NM ARASELI PERF SPECT REST STR COMPARISON: None. INDICATIONS: CHEST PAIN, HISTORY OF ATRIAL FIBRILLATION TECHNIQUE: Exam Description: Stress/Rest one day protocol gated SPECT Rest Imagin.2 mCi Tc-99m Cardiolite IV on 06-07-2023 Stress Imaging 30.7 mCi Tc-99m Cardiolite IV on 06-07-2023 Exercise Protocol: 0.4 mg Lexiscan given IV Heart Rate (bpm): Rest: 55 Max: 88 PMHR: 58 Blood Pressure: Rest: 112/74 Max: 118/68 Symptoms: chest pain Rest and peak stress ECG findings were normal and the exercise portion of the study was normal per attending physician Dr. Mesa . For more details please see separate cardiac stress test report. FINDINGS: QUALITY OF STUDY: Excellent. PERFUSION DEFECT: LOCATION: Basal inferior. Mid-inferior. Apical inferior. SIZE: Medium (3-4 segments). SEVERITY: Mild. TYPE: Persistent. WALL MOTION: Normal. LV SIZE: Normal. 101 mL. TID / TCD: None; 0.8 LVEF: Normal. Calculated EF 60%. SUMMARY: Myocardial perfusion imaging study has ABNORMAL findings. CONCLUSION: 1. No acute or reversible ischemia. 2. Diaphragm attenuation artifact versus mildly decreased perfusion of the inferior wall; stable between stress and rest imaging. Attenuation artifact is suspected. 3. Normal wall motion, left ventricle volume, and ejection fraction. Dictated by: Donnell Du M.D. on 06/07/2023 at 12:03 Approved by: Donnell Du M.D. on 06/07/2023 at 13:36 Dictated By: Donnell Du M.D. Signed By: 06/07/23 1337 DD/ 1336 TD/TT: Small Stock Facer:TBHRadiology, Radiologist, - 06/07/2023 [place] [address] Nuclear Medicine Report Signed Patient: YOLI ANTUNEZ MR#: [id number] : 1955 Acct:[id number] Age/Sex: 68 / M ADM Date: 06/07/23 Loc: [place] Attending Dr: ELYSSA SOLANO Ordering Physician: ELYSSA SOLANO Date of Service: 06/07/23 Procedure(s): NM araseli perf SPECT rest str Accession Number(s): [id number] cc: ELYSSA SOLANO ; RADHA BURRIS Patient Name: YOLI ANTUNEZ MR#: [id number] : 1955 Exam Date: 06/07/2023 Ordering Doctor: ELYSSA SOLANO RADIOLOGY REPORT PROCEDURE: NM ARASELI PERF SPECT REST STR COMPARISON: None. INDICATIONS: CHEST PAIN, HISTORY OF ATRIAL FIBRILLATION TECHNIQUE: Exam Description: Stress/Rest one day protocol gated SPECT Rest Imagin.2 mCi Tc-99m Cardiolite IV on 06-07-2023 Stress Imaging 30.7 mCi Tc-99m Cardiolite IV on 06-07-2023 Exercise Protocol: 0.4 mg Lexiscan given IV Heart Rate (bpm): Rest: 55 Max: 88 PMHR: 58 Blood Pressure: Rest: 112/74 Max: 118/68 Symptoms: chest pain Rest and peak stress ECG findings were normal and the exercise portion of the study was normal per attending physician Dr. Mesa . For more details please see separate cardiac stress test report. FINDINGS: QUALITY OF STUDY: Excellent. PERFUSION DEFECT: LOCATION: Basal inferior. Mid-inferior. Apical inferior. SIZE: Medium (3-4 segments). SEVERITY: Mild. TYPE: Persistent. WALL MOTION: Normal. LV SIZE: Normal. 101 mL. TID / TCD: None; 0.8 LVEF: Normal. Calculated EF 60%. SUMMARY: Myocardial perfusion imaging study has ABNORMAL findings. CONCLUSION: 1. No acute or reversible ischemia. 2. Diaphragm attenuation artifact versus mildly decreased perfusion of the inferior wall; stable between stress and rest imaging. Attenuation artifact is suspected. 3. Normal wall motion, left ventricle volume, and ejection fraction. Dictated by: Donnell Du M.D. on 06/07/2023 at 12:03 Approved by: Donnell Du M.D. on 06/07/2023 at 13:36 Dictated By: Donnell Du M.D. Signed By: 06/07/231336 DD/ 35 TD/TT: Small Stock Facer: [facility] CenterRadiology Study observation (narrative)[facility] ARASELI PERF SPECT REST STROrdered By: Radiologist Radiology on 46-95-6262NQKXMercy Hospital South, formerly [facility] Work Phone: aLL KAPPA/LAMBDA FREE SERUMon 58-20-8430NDG KAPPA LC FREE SER-MCNC30.6 mg/LHigh3.3 - 19.4 mg/LNOMS HealthcareComment on above:Rarely, increased serum free light chains levels may not be detected or accurately quantified due to prozone phenomenon or in high viscosity samples using this immunoturbidimetric assay. Correlation with other laboratory results and clinical findings is recommended. [place] Free Light Chain was performed using the Binding Site Optilite immunoturbidimetric method. Result obtained with different assay methods or kits cannot be used interchangeably. [facility] KAPPA LC/LAMBDA SER1.88Hhom1.26 - 1.65NOMosaic Life Care at St. JosephCCF LAMBDA LC FREE SERPL-MCNC17.8 mg/L5.7 - 26.3 mg/LNOMS HealthcareComment on above:Rarely, increased serum free light chains levels may [...] used interchangeably. Interpretation and review of laboratory resultsAbTrinity Health Livingston HospitalSpecimen Type: BLOOD SPECIMEN Ordering Facility: [facility] Address: [address] [place] [address] Original Ordering Provider: MARÍA FREIRE [facility] HospitalCT ABDOMEN PELVIS W IV CONTRASTon 24-52-0563QG ABDOMEN PELVIS W IV CONTRASTInterpreted By: Miguel Conrad, STUDY: CT ABDOMEN PELVIS W IV CONTRAST; 02/01/2023 2:11 pm INDICATION: Signs/Symptoms:worsening LLQ abdominal pain and watery diarrhea. COMPARISON: None. ACCESSION NUMBER(S): [id number] ORDERING CLINICIAN: YOSSI CHEN TECHNIQUE: CT of [...] Miguel Conrad 02/01/2023 2:52 PM Dictation workstation: [id number]a Fostoria Community HospitalCT Abdomen and Pelvis W contrast Candace . No acute intra- abdominal or pelvic pathology. 2. Uncomplicated colonic diverticulosis. 3. Trace hiatal hernia. 4. Scattered splenic calcific granulomas likely sequelae of chronic granulomatous infection. MACRO: None Signed by: Miguel Conrad 02/01/2023 2:52 PM Dictation workstation: [id number] By: Miguel Conrad, STUDY: CT ABDOMEN PELVIS W IV CONTRAST; 02/01/2023 2:11 pm INDICATION: Signs/Symptoms:worsening LLQ abdominal pain and watery diarrhea. COMPARISON: None. ACCESSION NUMBER(S): [id number] ORDERING CLINICIAN: YOSSI CHEN TECHNIQUE: CT of [...] Bilateral small fat containing inguinal hernias. [facility] MMODALMiguel Conrad MD - 02/01/2023 Interpreted By: Miguel Conrad, STUDY: CT ABDOMEN PELVIS W IV CONTRAST; 02/01/2023 2:11 pm INDICATION: Signs/Symptoms:worsening LLQ abdominal pain and watery diarrhea. COMPARISON: None. ACCESSION NUMBER(S): [id number] ORDERING CLINICIAN: YOSSI CHEN TECHNIQUE: CT of [...] Miguel Conrad 02/01/2023 2:52 PM Dictation workstation: [id number] [facility] Work Phone: Radiology Study observation (narrative)[facility] Work Phone: CT Abdomen and Pelvis W contrast IVOrdered By: Miguel Conrad on 88-22-2220IonqtokhneMemorial Health System [facility] Work Phone: Gastrointestinal pathogens identifiedon 02-01-2023 Gastrointestinal pathogens identified MIKE+probe Nom (Stl)Campylobacter coli+jejuni+upsaliensis DNA Not Detected Salmonella sp DNA Not Detected Shigella sp DNA Not Detected Vibrio cholerae DNA Not Detected Yersinia enterocolitica DNA Not Detected Escherichia coli Stx1 toxin stx1 gene Not Detected Escherichia coli Stx2 toxin stx2 gene Not Detected Norovirus genogroup I AND II RNA Not Detected Rotavirus RNA Not DetectedNormalNot DetectedUnMercy Health St. [facility] Hospital Comment on above:Performed By: #### 81098-9 #### RENÉ Hinojosa ([id number]) [facility] ([facility]) [address] [place], [place] [address]Basic metabolic 2000 panelon 94-83-4211Vvrbp gap [Moles/Vol] 12 mmol/YVjwffc92-16IhqpczoyncMarietta Osteopathic ClinicComment on above:Performed By: #### 74185-8 #### MAYELIN Hill ([id number]) [facility] ([facility]) [address] [place] [address] 56369Xwmzpni [Mass/Vol]7.2 mg/dLLow8.6-10.3UnMercy Health St. Joseph Warren HospitalComment on above:Performed By: #### 41814-3 #### MAYELIN Hill ([id number]) [facility] ([facility]) [address] [place] [address] 17366Azgounez [Moles/Vol]106 mmol/HElugbu65-073KuxhamnpysMercy Health St. Joseph Warren HospitalComment on above:Performed By: #### 96755-0 #### MAYELIN Hill ([id number]) [facility] ([facility]) [address] [place] [address] 94773TG8 [Moles/Vol]28 mmol/YGhwgrt69-46FgpdhixqaaMercy Health St. Joseph Warren HospitalComment on above:Performed By: #### 97667-0 #### MAYELIN Hill ([id number]) [facility] ([facility]) [address] [place] [address] 28212Ecrapjxhka [Mass/Vol]1.65 mg/dLHigh0.50-1.30UnMercy Health St. Joseph Warren HospitalComment on above:Performed By: #### 02140-3 #### MAYELIN Hill ([id number]) [facility] ([facility]) [address] [place] [address] 68283AIC/1.73 sq M.predicted MDRD (S/P/Bld) [Vol rate/Area]45 mL/min/1.73m*2Low>60UnMercy Health St. Joseph Warren HospitalComment on above:Result Comment: Calculations of estimated GFR are performed using the 2020 CKD-EPI Study Refit equation without the race variable for the IDMS-Traceable creatinine methods. https://jasn.asnjournals.org/content/early/ASN.7618820586Chgdfeufg By: #### 77004-9 #### MAYELIN Hill ([id number]) [facility] ([facility]) [address] [place] [address] 97594Vjbmzrf [Mass/Vol]83 mg/zKRajjib45-94UwjdgbvnotMarietta Osteopathic ClinicComment on above:Performed By: #### 01961-3 #### MAYELIN Hill ([id number]) [facility] ([facility]) [address] [place] [address] 81571Eqhjpduuv [Moles/Vol]4.3 mmol/LNormal3.5-5.3Marietta Osteopathic ClinicComment on above:Performed By: #### 18550-5 #### MAYELIN Hill (25732) [facility] ([facility]) [address] [place] [address] 43082Cuuslm [Moles/Vol]142 mmol/ERmeagf340-922IubeidrxxhMercy Health St. Joseph Warren HospitalComment on above:Performed By: #### 55039-0 #### MAYELIN Hill ([id number]) [facility] ([facility]) [address] [place] [address] 74984Aqww nitrogen [Mass/Vol]25 mg/dLHigh6-23UnMercy Health St. Joseph Warren HospitalComment on above:Performed By: #### 58990-8 #### MAYELIN Hill ([id number]) [facility] ([facility]) [address] [place] [address] 75050Ozfmsq Up (General Surgery)on 50-44-6630Ieenhk Up (General Surgery)Diagnoses/Problems H/O hiatal hernia (V12.79) (Z87.19) Patient Discussion/Summary followup as needed Provider Impressions Patient continues to do well. He was reassured; followup as needed Chief Complaint Patient is here for follow up History of Present Glknnvw74-fwwx-efk patient who underwent laparoscopic hiatal hernia repair [...] BY MOUTH TWICE DAILY WITH MEALS Pyridostigmine [place] 60 MG Oral TabletTAKE 1 TABLET BY MOUTH THREE TIMES DAILY (BEFORE BREAKFAST,BEFORE LUNCH, BEFORE EVENING MEAL) START AT ONE HALF TABLET (30 MG) THREE TIMES DAILY WITH MEALS AND INCREASE TOLERATED TO THE FULL TABLET 3 TIMES A DAY Sertraline HCl - 50 MG Oral Tablet Sucralfate 1 GM Oral Tablet Tamsulosin HCl - 0.4 MG Oral Capsule Uloric 40 MG Oral Tablet Vitamin D (Ergocalciferol) 1.25 MG (07537 UT) Oral CapsuleTAKE 1 CAPSULE BY MOUTH ONCE A WEEK Physical Exam abd: soft, non-distended, minimal tenderness over LUQ incision Signatures Electronically signed by : Yossi Chen MD; Dec 13 2022 10:59AM EST (Author) [facility] TouchworksPost Op (General Surgery)on 96-31-7573Smvx Op (General Surgery)Diagnoses/Problems History of hiatal hernia (V12.79) (Z87.19) H/O [...] strain; ALBERT = N; Sent To: [facility] 7436 Patient Discussion/Summary Ice pack to left abdominal [...] here for post op History of Present Hbvfchs34-mdnc-non patient who underwent laparoscopic repair of paraesophageal hernia with toupet wrap on November 21. He was doing well until yesterday when he was playing pva-sb-dvrkfpc his dog. Immediately, he started having excruciating [...] BY MOUTH TWICE DAILY WITH MEALS Pyridostigmine [place] 60 MG Oral TabletTAKE 1 TABLET BY MOUTH THREE TIMES DAILY (BEFORE BREAKFAST,BEFORE LUNCH, BEFORE EVENING MEAL) START AT ONE HALF TABLET (30 MG) THREE TIMES DAILY WITH MEALS AND INCREASE TOLERATED TO THE FULL TABLET 3 TIMES A DAY Sertraline HCl - 50 MG Oral Tablet Sucralfate 1 GM Oral Tablet Tamsulosin HCl - 0.4 MG Oral Capsule Uloric 40 MG Oral Tablet Vitamin D (Ergocalciferol) 1.25 MG (04641 UT) Oral CapsuleTAKE 1 CAPSULE BY MOUTH ONCE A WEEK Vitals Vital Signs Recorded: 29Nov2022 01:43PM Height6 ft 6 in Yijfrm443 lb BMI Kcfsgdbiat03.24 kg/m2 BSA Calculated2.49 Physical Exam abd: soft, non-distended, tenderness over LUQ trocar site; no hernia Signatures Electronically signed by : Yossi Chen MD (more content not included)... NormalUH TouchworksDischarge Kovcpio0ra 22-39-8090Okcdymkyr Quipncy5Ttkviyxqo Orders: Anticipated Discharge Date: Anticipated Discharge [id number] Hospital Providers: Provider RoleProvider Name Sharif Yossi Code Status: Code Status at Discharge: Full [...] up Call to Schedule in2 weeks Phone [phone] Commentscall to make appointment Other Clinician Instructions: Other Instructions: Other Clinician InstructionsAvoid bread, salad, steak and carbonated beverages for 2 wks Electronic Signatures: Sivan Costa ([employer]) (Signed 22-Nov-2022 12:04) Authored: Discharge Orders, Provider FINAL REVIEW of Orders, Appointments, Gold Form - Thread Cutter Tender Summary Yossi Chen) (Signed 22-Nov-2022 12:26) Authored: Discharge Orders, Provider FINAL REVIEW of Orders, Appointments, Other Clinician Instructions Last Updated: 22-Nov-2022 12:26 by Yossi Chen)[facility] GreeneOrder Reconciliationon 62-34-0937Lytde ReconciliationPage 1 Discharge Reconciliation Document Reconciliation Type: Discharge requested on behalf of Yossi Chen (Physician) done by Yossi Chen) Discharge - Partial Reconciliation: 22-Nov-2022 12:05 by: Sivan Costa ([facility]) Discharge - Reconciliation: 22-Nov-2022 12:31 by: [...] Infusion is not required (more content not included)...NormalSt. Francis HospitalAPTTon 11-21-2022 aPTT Coag (Bld) [Time]34 yDtqgql90 - 38St. Francis HospitalComment on above: Result Comment: Note new reference range as of 10/09/2022 at 10:00am.Performed By: #### APTT ####[facility] [place], [place] [id number] Activated Partial Thromboplastin Timeon 12-89-9159xHSI Coag (PPP) [Time]34 s27 - 38-[place] [facility] [facility] [address] DO Work Phone: comment on above:Note new reference range as of 10/09/2022 at 10:00am.Admission Risk Screen - Adulton 37-25-2440Xpnissmll Risk Screen - AdultAllergies: Allergies: Tikosyn: Other vancomycin: Rash penicillins: Unknown Patient Verification: New W ID Band Applied in my Departmentno Type of ID Patient is WearingW wristband, but not applied here Patient Transferred from Other Facility ([facility], [facility],etc)no Patient Identity Verified Bypatient ID Band [...] AlertFor Ebola-like Symptoms: Isolate Patient and Notify Provider/Admitting Interviewer For Contact: Notify Provider/Admitting Interviewer Advance Directive: Advance Directive/DNRyes Advance Directive typeLiving Will Living Will AvailabilityLiving Will not available now Living Will Pqciyeaki59-Iaq-1610 [place] Fall Screen: History of falling (immediate or previous)no (0) Secondary Diagnosisyes (15) Intravenous Therapy/ Heparin/Saline Lockyes (20) Gait/Transferringnormal/bedrest/wheelchair (0) Ambulatory Aidsnone/bedrest/nurse assist (0) Mental Statusoriented [...] Communicatenone Learning Preferencesaudio Cultural Considerationsnone Developmental Considerationsnone Mu-Ism Considerationsnone Learning Assessment (Other Learner): Other learner availableno Depression Screen: During the past month, have you often been bothered by feeling down, depressed or hopelessno During the past month, have you often had little interest or pleasure in doing thingsno Have you had any thoughts of harming anyone elseno [place] Suicide: Risk Screen Not Applicable/Able to Answerable [...] Was this within the past 3 monthsno [place] Suicide Riskmoderate Adult Nutrition Screen: Have you [...] Spiritual Screen: Are there any cultural, spiritual, anabaptist practices/values/needs that are important for us to knowno CAGE: Is this an injured patient at a Trauma Center ([facility]/[place]): no Vaccinations: Vaccination - Influenza Vaccination Screen: (more content not included)...NormalSt. Francis HospitalCBC AND DIFFERENTIAL on 11-21-2022% AUTOMATED IMMATURE GRAN0.3 %Normal0.0 - 0.9St. Francis HospitalComment on above:Result Comment: Immature Granulocyte Count (IG) includes promyelocytes, myelocytes and metamyelocytes but does not include bands. Percent differential counts (%) should be interpreted in the context of the absolute cell counts (cells/L).Performed By: #### CBCDF #### [address] [id number] (Bld) [#/Vol]0.04 10*3/uLNormal0.00 - 0.10St. Francis HospitalComment on above:Performed By: #### CBCDF #### [address] [id number]/100 WBC (Bld)0.6 %Normal0.0 - 2.0St. Francis HospitalComment on above:Performed By: #### CBCDF #### [address] [id number] (Bld) [#/Vol]0.27 10*3/uLNormal0.00 - 0.70St. Francis HospitalComment on above:Performed By: #### CBCDF #### [address] [id number]/100 WBC (Bld)3.9 %Normal0.0 - 6.0St. Francis HospitalComment on above:Performed By: #### CBCDF #### [address] 464015539Koxhnlxmetc distribution width (RBC) [Ratio]13.5 %Uxsxot32.5 - 14.5St. Francis HospitalComment on above:Performed By: #### CBCDF #### [address] [id number] (Bld) [Volume fraction]40.1 %Low41.0 - 52.0St. Francis HospitalComment on above:Performed By: #### CBCDF #### [address] [id number] (Bld) [Mass/Vol]13.3 g/dLLow13.5 - 17.5St. Francis HospitalComment on above:Performed By: #### CBCDF #### [address] [id number] (Bld) [#/Vol]1.54 10*3/uLNormal1.20 - 4.80St. Francis HospitalComment on above:Performed By: #### CBCDF #### [address] [id number]/100 WBC (Bld)22.3 %Mxrumb12.0 - 44.0St. Francis HospitalComment on above:Performed By: #### CBCDF #### [address] [id number] (RBC) [Mass/Vol]33.2 g/nOFanmvd81.0 - 36.0St. Francis HospitalComment on above:Performed By: #### CBCDF #### [address] [id number] (RBC) [Entitic vol]83 qHKicceq34 - 100UH [facility] HospitalComment on above:Performed By: #### CBCDF #### [address] [id number] (Bld) [#/Vol]0.71 10*3/uLNormal0.10 - 1.00UH [facility] HospitalComment on above:Performed By: #### CBCDF #### [address] 199782417Ozkfjdrtd/100 WBC (Bld)10.3 %Normal2.0 - 10.0St. Francis HospitalComment on above:Performed By: #### CBCDF #### [address] [id number] (Bld) [#/Vol]4.33 10*3/uLNormal1.20 - 7.70St. Francis HospitalComment on above:Performed By: #### CBCDF #### [address] [id number]/100 WBC (Bld)62.6 %Ecmfxc16.0 - 80.0St. Francis HospitalComment on above:Performed By: #### CBCDF #### [address] [id number] (Bld) [#/Vol]210 10*3/iZCkhpcr706 - 450UH [facility] HospitalComment on above:Performed By: #### CBCDF #### [address] [id number] x10E12/LNormal4.50 - 5.90[facility] Comment on above:Performed By: #### CBCDF #### [address] [id number] (Bld) [#/Vol]6.9 10*3/uLNormal4.4 - 11.3UH [facility] HospitalComment on above:Performed By: #### CBCDF #### [address] [id number] PANELon 58-08-3106Omqkeli [Mass/Vol]4.4 g/dL Normal3.4 - 5.0St. Francis HospitalComment on above:Performed By: #### CMP #### [address] [id number] [Catalytic activity/Vol]60 U/CEgceqk93 - 136St. Francis HospitalComment on above:Performed By: #### CMP #### [address] [id number] [Catalytic activity/Vol]14 U/UBvpvst41 - 52St. Francis HospitalComment on above:Result Comment: Patients treated with Sulfasalazine may generate falsely decreased results for ALT.Performed By: #### CMP #### [address] 755057082Wospw gap [Moles/Vol]14 mmol/PParimr67 - 20St. Francis HospitalComment on above:Performed By: #### CMP #### [address] [id number] [Catalytic activity/Vol]13 U/LNormal9 - 39St. Francis HospitalComment on above:Performed By: #### CMP #### [address] [id number] [Mass/Vol]0.3 mg/dLNormal0.0 - 1.2St. Francis HospitalComment on above:Performed By: #### CMP #### [address] 479972103Dsrmxwh [Mass/Vol]7.1 mg/dLLow8.6 - 10.3St. Francis HospitalComment on above:Performed By: #### CMP #### [address] 081873269Wrlklnxa [Moles/Vol]106 mmol/CTjcydn74 - 107[facility] HospitalComment on above:Performed By: #### CMP #### [address] [id number] [Mass/Vol]1.38 mg/dLHigh0.50 - 1.30[facility] HospitalComment on above:Performed By: #### CMP #### [address] [id number]/1.73 sq M.predicted among non-blacks MDRD (S/P/Bld) [Vol rate/Area]55 mL/min/{1.73_m2}Abnormal>90[facility] HospitalComment on above:Result Comment: CALCULATIONS OF ESTIMATED GFR ARE PERFORMED USING THE 2020 CKD-EPI STUDY REFIT EQUATION WITHOUT THE RACE VARIABLE FOR THE IDMS-TRACEABLE CREATININE METHODS. https://jasn.asnjournals.org/content/early//ASN.0664929265Wojghoezm By: #### CMP #### [address] [id number] [Mass/Vol]105 mg/fGRsxd00 - 99[facility] HospitalComment on above:Performed By: #### CMP #### [address] 222808738GNP6 (Bld) [Moles/Vol]24 mmol/WOgildz68 - 32[facility] HospitalComment on above:Performed By: #### CMP #### [address] 322336695Vufcumsgh [Moles/Vol]3.8 mmol/LNormal3.5 - 5.3[facility] HospitalComment on above:Performed By: #### CMP #### [address] 040077527Rqwktwk [Mass/Vol]7.2 g/dLNormal6.4 - 8.2St. Francis HospitalComment on above:Performed By: #### CMP #### [address] 311796319Iqusbo [Moles/Vol]140 mmol/SErjgdg342 - 145[facility] HospitalComment on above:Performed By: #### CMP #### [address] 073746187Pyyp nitrogen [Mass/Vol]23 mg/dLNormal6 - 23St. Francis HospitalComment on above:Performed By: #### CMP #### [address] [id number] Event Note-Surgical first assistanton 11-21-2022 Clinical Event Note-Surgical first assistantClinical Event: Clinical Event Note: TopicSurgical assistant associate full professor Details assistant project manager to dr Yossi Chen. Procedure: Laparoscopic repair of Type 3 paraesophageal hernia with Toupet wrap. Provider/Team Contact Info-Pager Fab Law PA-C [phone] Electronic Signatures: Kee Law (PAC) (Signed 21-Nov-2022 14:31) Authored: Clinical Event Note Last Updated: 21-Nov-2022 14:31 by Kee Law (PAC)[facility] GreeneComplete Blood Count + Differentialon 44-46-5975Qopstmxct/100 WBC (Bld)0.6 %0.0 - 2.0[facility] 201 DO Work Phone: Erythrocyte distribution width (RBC) [Ratio]13.5 %See BelowLegacy Good Samaritan Medical Center 201 DO Work Phone: comment on above:Reference Range: 11.5 - 14.5 Hematocrit (Bld) [Volume fraction]40.1 %below low thresholdSee [facility] 201 DO Work Phone: comment on above:Reference Range: 41.0 - 52.0 Hemoglobin (Bld) [Mass/Vol]13.3 g/dLbelow low thresholdSee [facility] Hospitalia 201 DO Work Phone: Comment on above:Reference Range: 13.5 - 17.5 Lymphocytes/100 WBC (Bld)22.3 %See BelowSt. Mary's Healthcare Centeria 201 DO Work Phone: Comment on above:Reference Range: 13.0 - 44.0MCHC (RBC) [Mass/Vol]33.2 g/dLSee BelowSt. Mary's Healthcare Centeria 201 DO Work Phone: Comment on above:Reference Range: 32.0 - 36.0MCV (RBC) [Entitic vol]83 fL80 - 100[facility] 201 DO Work Phone: Monocytes/100 WBC (Bld)10.3 %2.0 - 10.0MP-[facility]ard[facility]iumia 201 DO Work Phone: Neutrophils/100 WBC (Bld)62.6 %See BelowLeg[facility] 201 DO Work Phone: Comment on above:Reference Range: 40.0 - 80.0Platelets (Bld) [#/Vol]210 10*3/uL150 - 450MP-[facility] 201 DO Work Phone: RBC (Bld) [#/Vol]4.84 {x10E12/L}See BelowSt. Mary's Healthcare Centeria 201 DO Work Phone: Comment on above:Reference Range: 4.50 - 5.90WBC (Bld) [#/Vol]6.9 10*3/uL4.4 - 11.3MP-[facility] 201 DO Work Phone: Complete Blood Count + Differential0.04 {x10E9/L}See BelowSt. Mary's Healthcare Centeria 201 DO Work Phone: Comment on above:Reference Range: 0.00 - 0.10Complete Blood Count + Differential0.27 {x10E9/L}See BelowLegacy [facility] 201 DO Work Phone: [phone] on above:Reference Range: 0.00 - 0.70Complete Blood Count + Differential0.71 {x10E9/L}See BelowLegacy [facility] 201 DO Work Phone: [phone] on above:Reference Range: 0.10 - 1.00Complete Blood Count + Differential1.54 {x10E9/L}See BelowLeg[facility] 201 DO Work Phone: [phone] on above:Reference Range: 1.20 - 4.80Complete Blood Count + Differential4.33 {x10E9/L}See BelowLegacy [facility] 201 DO Work Phone: [phone] on above:Reference Range: 1.20 - 7.70Complete Blood Count + Differential3.9 %0.0 - 6.0[place] [address] DO Work Phone: Complete Blood Count + Differential0.3 %0.0 - 0.9[place] [address] DO Work Phone: [phone] on above:Immature Granulocyte Count (IG) includes promyelocytes, myelocytes and metamyelocytes but does not include bands. Percent differential counts (%) should be interpreted in the context of the absolute cell counts (cells/L).Laboratory - Chemistry and Chemistry - challengeon [id number] BCP dye [Mass/Vol]4.4 g/dL3.4 - 5.0[place] [address] DO Work Phone: ALP [Catalytic activity/Vol]60 U/L33 - 136[facility] 201 DO Work Phone: ALT With P-5'-P [Catalytic activity/Vol]14 U/L10 - 52 -[place] [address] DO Work Phone: Comment on above:Patients treated with Sulfasalazine may generate falsely decreased results for ALT.Anion gap [Moles/Vol]14 mmol/L10 - 20MP-[facility] 201 DO Work Phone: AST With P-5'-P [Catalytic activity/Vol]13 U/L9 - 39 MP-[facility] 201 DO Work Phone: Bilirubin [Mass/Vol]0.3 mg/dL0.0 - 1.2MP-[facility] 201 DO Work Phone: Calcium [Mass/Vol]7.1 mg/dLbelow low threshold8.6 - 10.3MP-[facility] 201 DO Work Phone: Chloride [Moles/Vol]106 mmol/L98 - 107MP-[facility] 201 DO Work Phone: DE7 [Moles/Vol]24 mmol/L21 - 32MP-[facility] 201 DO Work Phone: Creatinine [Mass/Vol]1.38 mg/dLabove high thresholdSee BelowMP-[facility] 201 DO Work Phone: Comment on above:Reference Range: 0.50 - 1.30Glucose [Mass/Vol]105 mg/dLabove high xpxdguulg76 - 99MP-[facility] 201 DO Work Phone: Potassium [Moles/Vol]3.8 mmol/L3.5 - 5.3MP-[facility] 201 DO Work Phone: Protein [Mass/Vol]7.2 g/dL6.4 - 8.2MP-[facility] 201 DO Work Phone: Sodium [Moles/Vol]140 mmol/L136 - 145MP-[facility] 201 DO Work Phone: Urea nitrogen [Mass/Vol]23 mg/dL6 - 23MP-[facility] 201 DO Work Phone: [phone] - Coagulationon 27-12-0238GDU Coag (PPP) [Relative time]1.0 {INR}0.9 - 1.1MP-[facility] 201 DO Work Phone: PT Coag (PPP) [Time]11.7 s9.8 - 12.8MP-[facility] 201 DO Work Phone: Comment on above:Note new reference range as of 10/09/2022 at 10:00am.No Panel Informationon [id number]-[facility] 201 DO Work Phone: [phone] {mL/min/1.73m2}Abnormal>90MP-[facility] 201 DO Work Phone: comment on above:CALCULATIONS OF ESTIMATED GFR ARE PERFORMED USING THE 2020 CKD-EPI STUDY REFIT EQUATION WITHOUT THERACE VARIABLE FOR THE IDMS-TRACEABLE CREATININE METHODS.https://jasn.asnjournals.org/content/early//ASN.4410191373 PT/INRon 96-19-3746SZ Coag (PPP) [Time]11.7 sNormal9.8 - 12.8[facility] HospitalComment on above:Result Comment: Note new reference range as of 10/09/2022 at 10:00am.Performed By: #### PTINR ####[place] [address] [place], [place] [id number], INR1.6Qvnmhh0.9 - 1.1[facility] HospitalComment on above:Performed By: #### PTINR ####[address] [id number] Profile - Adult v2on 78-17-6948Psuyhqu Profile - Adult j2Yaegjds: Initial Info: How to be AddressedFred(1) Spoken Language PreferredEnglish (1) Stated Reason for Admissionscheduled hernia repair Wants Family/Rep Notified of Admissionn/a; family present Notify PCPnotify PCP Informed of Patient Visiting Rightsyes Arrived FromOR Patient Belongingsremains with patient Patient Belongings Remaining with Patientclothing; cell phone/electronics Medications Brought to Hospitalno General Health: Blood Avoidance/Restrictionsnone(1) Previous Transfusion Reactionnot applicable(1) Weight in kg113.7 kilogram(s) Weight in isr626.6 pound(s) Weight Methodstated Scale Typebed Height in [...] Symptoms/Conditions Managed at Homecardiovascular; genitourinary; respiratory Cardiovascular Symptoms/Conditionshypertension Cardiovascular Managementmanaged Genitourinary Symptoms/Conditionsrenal disease Genitourinary Managementmanaged [...] From Patient Profile - Preop v3 19-Nov-[facility]22 11:[facility] Surgical Pathology Departmenton [id number] Surgical Pathology DepartmentName YOLI ANTUNEZ JR. Pathologist: KAITLYN LAW MD Date of Procedure: 11/21/2022 Date Received: 11/21/2022 Date Reported 12/03/2022 Submitting Physician: YOSSI CHEN MD Location: [facility] Copy To/Referring/Attending: RADHA BURRIS MD Other External # FINAL DIAGNOSIS A. HIATAL HERNIA SAC: -- BENIGN ADIPOSE TISSUE AND CONTAINED BENIGN LYMPH NODES. Electronically Signed Out By KAITLYN LAW MD/AWP By the signature on this report, the individual or group listed as making the Final Interpretation/Diagnosis certifies that they have reviewed this case. Diagnostic interpretation performed at [facility] [address] [place] [address] Clinical History: Physician Contact Number: [phone] Fixative (A): Formalin Clinical Diagnosis History HIATAL HERNIA. Specimens Submitted As: A: HERNIA SAC Gross Description: Received in formalin, labeled with the patient's name and hospital number and hernia sac , are multiple segments of yellow fibroadipose soft tissue aggreagting to 8.0 x 5.0 x 2.5 cm. Areas of induration, nodularity, hemorrhage or necrosis are not seen. Station Mechanic Helper sections are submitted in one cassette. LMP lmp/11/27/2022 [facility] Department of Pathology [address] [place], [place] [address]NoLutheran Medical CenterComment on above:Performed By: #### [facility] #### [facility] Surgical Pathology Department [address] [place], [place] [id number] Profile - Preop v3on 39-71-3096Rmalhld Profile - Preop y0Rqqnaai Profile - Preop: Initial Info: Patient DemographicsName: YOLI ANTUNEZ Date: 1955 Address: [address] [place] [address], [id number] Date/Time 12:28 Primary Phone [phone] Instructions Givenappropriate clothing, bring glasses/contacts case, bring responsible adult as the driver license examiner (procedure may be cancelled if no driver license examiner), center location, insurance information, remove jewerly/piercings, time to arrive Prep Instructions Reviewedn/a Instructions/Prep CommentNPO after midnight - bring event recorder info/ID card day of procedure How to be AddressedFred Spoken Language PreferredEnglish Source of Informationpatient Stated Reason for Admissionhiatal hernia repair Primary Contact Name and Numberjames Smith [phone] Limitations on Visitors/Phone Callsnone Medications Brought to Hospitalno General Health: Weight in kg113.5 kilogram(s) Weight in iwt278.2 pound(s) Weight Methodactual (measured) Scale Typestanding Height [...] recorder- right side of chest- checked at [place] kidney stone watchman device cataract detached retina colonoscopy /endoscopy h/o ulcers repair- with clips Patient Reaction to Anesthesiastates aphasia after surgery for a few minutes after procedures - advised to speak to anesthesia prior to procedure Blood Avoidance/Restrictionsnone Previous Transfusion Reactionnot applicable Health Mgmt: Symptoms/Conditions Managed at Homecardiovascular; neurological; musculoskeletal; endocrine; genitourinary; gastrointestinal; HEENT (head, eyes, ears, nose, throat); peripheral/neurovascular; respiratory Cardiovascular Symptoms/Conditionsdysrhythmia; hypertension Cardiovascular Management Strategiesmedication therapy; medical sales representative Cardiovascular Symptoms/Conditions Commentcardiac ablation for atrial fib/ watchman device/ Event recorder (asked to bring ID in day of procedure - Checked at [place] office) Endocrine Symptoms/Conditionsthyroid disease Endocrine Management Strategiesmedication therapy Gastrointestinal Symptoms/Conditionsdiarrhea; reflux/heartburn Gastrointestinal Management Strategiesmedication therapy Gastrointestinal Symptoms/Conditions Commenth/o ulcer/ hiatal hernia, bleeding ulcers - with clips in place Genitourinary Symptoms/Conditionsstones; renal disease Genitourinary Symptoms/Conditions Commentstates early stage 4 renal disease follows with nephrology/PCP; h/o stones, no current issue HEENT Symptoms/Conditions Commenth/o detached retina- no current vision issues / permanent bridge Musculoskeletal Symptoms/Conditionsosteoarthritis Musculoskeletal Symptoms/Conditions Commentstates general arthritis Neurological Management Strategiesmedication therapy Neurological Symptoms/Conditions Commenth/o TIA with no residual affect Peripheral Neurovascular Symptoms/Conditions Commentoccasional swelling in legs Respiratory Symptoms/Conditionssleep disordered breathing Respiratory Management StrategiesCPAP CPAP Settingsnot currently using Respiratory Symptoms/Conditions Commenth/o sleep apnea Barriers to Managing Healthnone Relationship/Environ: Lives Withspouse Living Arrangementshouse Resource/Environmental Concernsnone Anticipated Transition [employer] [facility] Anticipated at Transitionnone Tobacco Use: Tobacco Useyes Tobacco Typecigarettes Number of Packs per Day2 Number of yrs15 Pack yrs30 Tobacco Commentquit smoking 1986 Pre-op Checklist: Arrival Ohan25-Tah-7630 Arrival Time05:23 Procedure TypeLaparoscopic Hiatal Hernia repair with Toupet wrap possible feeding tube and upper endoscopy NPOyes Last Food Ichjga21-Hef-6994 22:00 Last Clear Fluid Duepug62-Pbc-3564 22:00 ID Band On Patientpatient ID (name), [...] Information Review: Allergies, Ho (more content not included)...[facility] Initial Visit (General Surgery)on 01-12-1376Sdwnfwe Visit (General Surgery) Diagnoses/Problems Hiatal hernia (553.3) [...] gas bloat, inability to burp, blood clot, NH and stroke. All questions answered and he is willingto proceed. He will be on a full liquid diet for 3 days after surgery and then advance to a soft diet. Avoid bread [place] steak and carbonated beverage for 2 weeks. Chief Complaint Patient referred by Dr. Daily for a hiatal hernia consult. History of Present Njgprof66 y/o male patient referred for symptomatic hiatal hernia. Symptoms consist of heartburn, acid reflux and dysphagia. He thinks he has had GERD symptoms for at least 5 yrs. Reports undergoing EGD and clipping for bleeding ulcer in the hiatal hernia years ago. He was started on Omeprazole 20 mg 2 yrs ago. On that dose, he was having breakthrough heartburn one to two timesper week requiring Tums. He was then increased to 40 mg daily for months now. On this current dose,he is having one to two episodes per month of excruciating heartburn. When the burning starts in my throat, it is like I am on fire and I am very miserable . He reports dysphagia with especially solid food but at times with liquid. Per him, when the food gets stuck, he drinks lots of water to washit down or cough it up. On August 10, he underwent esophagram which showed moderate size hiatal hernia, reflux and abnormal mucosa. On August 30, he underwent EGD for placement of esophageal manometry. Findings were 5 cm hiatal hernia, 3 mm nodule at the GE junction and diffuse atrophic gastric mucosa.Esophageal manometry showed shortened LES length, decreased LES [...] use. Denies nausea and vomiting. Denies chest pain,pressure but SOB on exertion. Review of Systems Constitutional: no acute distress, no unintentional weight loss, no fever or chill, no weakness or fatigue Eyes: no eye pain, no loss of vision, no double vision ENT: no hearing loss; no earaches, no neck pain or hoarseness Cardiovascular: no chest pain or pressure, no palpation, no claudication, no lower extremity edema,no tachycardia, no postural nocturnal dyspnea Respiratory: no [...] History of Loop recorder (more content not included)...NormalUH Touchworks Established Visit (Otolaryngology)on 40-25-4332Lsuimlaikzz Visit (Otolaryngology)Patient Discussion/Summary Diagnose: ADA intolerant to PAP Plan: [...] YOLI ANTUNEZ on this date, 10/26/2022 03:00 PM, for a telehealth visit. Follow up visit to review results of DISE Adult Risk ScreeningAdult Risk Screening_UH: There are no spiritual/cultural practices/values/needsthat are important to know Initial Fall Risk Screening: YOLI has fallen in the last 6 months. He has fallen due to tripped. His fall did not result ininjury. YOLI does not have a fear of [...] waking up feeling unrefreshed, excessive daytime fatigue. [place] Sleepiness Scale Score is 16 /24. Fatigue [...] was requested and obtained previous to appointment. Appointmentlasted 22 minutes. Patient returns today to discuss [...] ADA on CPAP ( (more content not included)...NormalUH TouchworksOrder Reconciliationon [id number] ReconciliationPage 1 Discharge Reconciliation Document Reconciliation Type: Discharge [...] Vitamin B2 1.25 milligram(s) orally once a dayL[facility] Hospital Patient Profile - Preop v3on 06-12-3909Yfrrxel Profile - Preop q9Hmssmcj Profile - Preop: Initial Info: Patient DemographicsName: YOLI ANTUNEZ Date: 1955 Address: [address] [place] [address] Primary Phone [phone] Instructions Giventime to arrive, Arrival time of 0930 for surgery time of 1100 How to be Addressedfrederick Spoken Language PreferredEnglish Stated Reason for Admissionsleep study Primary Contact Name and Numbersee facesheet Medications Brought to Hospitalno General Health: Weight in kg116.6 kilogram(s) Weight in wuj933 pound(s) Height in feet6 feet Height in inches5.95 inch(es) Height in cm197.9 centimeter(s) BMI (kg/m2)29.771 square meter Patient or Family Member Reaction to Anesthesiapatient reaction Patient Reaction to Anesthesiaawakening delayed Blood Avoidance/Restrictionsnone Previous Transfusion Reactionnot applicable Health Mgmt: Symptoms/Conditions Managed at Homecardiovascular; endocrine Barriers to Managing Healthnone Relationship/Environ: Lives Withspouse Living Arrangementshouse Resource/Environmental Concernsnone Anticipated Transition [employer] [facility] Anticipated at Transitionnone Tobacco Use: Tobacco Useno Pre-op Checklist: Arrival Hzhe45-Evf-8970 Arrival Time09:59 Procedure Typesleep study NPOyes Last Food Rbgmgr76-Hoh-8308 00:00 Last Clear Fluid Byfbat16-Pnd-1687 00:00 ID Band On Patientpatient ID (name), [...] Information Last Updated: 15-Oct-2022 10:00 by Letty Godfrey)[facility] HospitalElectrocardiogram 12 Leadon 24-89-6006Omjyuphifosjqqeof 12 LeadVentricular Rate 70 Atrial Rate 70 P-R Interval 194 QRS Duration 78 Q-T Interval 420 QTC Calculation(Bazett) 453 P Lodi 38 R Lodi 13 T Lodi 66 QRS Count 12 Q Onset 222 P Onset 125 P Offset 161 T Offset 432 QTC Fredericia 442 Diagnosis Class Normal Diagnosis Normal sinus rhythm Normal ECG No previous ECGs available Confirmed by Aliya Candelaria ([id number]) on 10/14/2022 8:34:16 PMNNorth Valley Health CenterNo Panel Informationon 10-10-2022 [email or web address]?Kasandra [email or web address]& Date=10-10-2022&Time=14%3a24%3a36%3a00&TestType=ECG&Site=10&OutputType=PDF&Ext=P DFRegency Hospital [facility] West Work Phone: Normal sinus rhythmRegency Hospital Cleveland West Work Phone: NormalUniChildren's Medical Center Dallas Work Phone: [phone] [address] [place] [address] Work Phone: [phone] [address] [place] [address] Work Phone: [phone] [address] [place] [address] Work Phone: [phone] [address] [place] [address] Work Phone: [phone] [address] [place] [address] Work Phone: [phone] [address] [place] [address] Work Phone: [phone] [address] [place] [address] Work Phone: [phone] [address] [place] [address] Work Phone: [phone] [address] [place] [address] Work Phone: [phone] [address] [place] [address] Work Phone: [phone] [address] [place] [address] Work Phone: [phone] [address] [place] [address] Work Phone: [phone] [address] [place] [address] Work Phone: [phone] [address] [place] [address] Work Phone: Established Visit (Otolaryngology)on 09-25-2022 Established Visit (Otolaryngology)Diagnoses/Problems GERD (gastroesophageal reflux disease) (530.81) (K21.9) Dysphagia, [...] symptoms appear more central. Sees neurology at [facility] who suspects he may have autonomic dysfunction - F/u with [facility] neurology as scheduled 2) ADA, CPAP intolerance - pending appt with Dr Michaud 08/17 3) Dysphonia, not bothersome - continue to monitor Chief Complaint An interactive audio and video telecommunication system which permits real time communications between the patient (at the originating site) and provider (at the distant site) was utilized to providethis telehealth service. Verbal consent was requested and obtained from YOLI ANTUNEZ on this date, 09/25/2022 02:30 PM, for a telehealth visit. Dysphagia follow-up History of Present M[age]fcgqw65 year old man with history of intermittnet aphasia (possible autonomic instability), solid and liquid dysphagia referred to me by Dr. Perrin. He is now s/p esophagoscopyand dilation 09/13/22 to 32mm and biopsies. 09/25/22: Follow-up after dilation to 32mm. Overall symptoms are similar though thinks the frequency of solidand liquid dysphagia is a little less. Most prominently instead of chest symptoms he is feeling things more in his throat. Seeing neurology at [facility] for his intermittent aphasia. Still awaiting manometry results. 09/04/22: Here for follow-up. Esophagram completed 08/10/22 with moderate hiatal hernia, possible inflammatorynarrowing at GEJ, also area of mucosal irregularity for which endoscopy was recommended. He had manometry placed under endoscopy on 08/30/22, overall esophagus appeared normal on their exam with bvrrc6af nodule at GEJ that was biopsied. Pathology [...] antibiotics.About 2 times in the past year. He [...] in 2 weeks), thyroidectomy on levothyroxine,ACDF, ADA ROS performed. All other systems are reviewed and are negative for complaint except as noted in HPI. Studies: I personally reviewed the studies below with the following interpretation. (more content not included)...NormalUH TouchworksEstablished Visit (Otolaryngology)on 14-68-6959Odlegpgcghv Visit (Otolaryngology) Diagnoses/Problems Non-smoker (V49.89) (Z78.9) Dysphagia, [...] assist you through your ENT care at [facility]. Dr. Perrin is an ENT surgeon who specializes in voice, airway and swallowing issues. This means that she specializes in taking care of patients with complex voice, airway and swallowing problems. Dr. Perrin's office number is [phone]. Please use this number to contact her and her care team regardless of which office you use to access care. This number is the most direct way to communicate with all the members of the care team. Dr. Perrin?s school secretary answers the office phone from 9am-4pm Sat-Sat. Call [phone] and push 2. She can help you with scheduling of appointments, general questions and information. You may needto leave a message if she is helping another patient. In this case, someone from the team will callyou back the same day if you leave your message before 3pm, or the next business morning. Dr. Perrin?s nurse and can be reached by calling [phone]. We make every effort to return phone calls the same day. If you are in need of urgent assistance after hours, please call [phone] ask for ENT paint line production supervisor. Dr. Perrin works closely with speech therapists as they work together to help solve your issues with speech and swallowing. You may see a speech therapist during your appointment if Dr. Perrin feels this is needed. If you need to reach speech therapy to talk with a therapist or to schedule an appointment, please call [phone]. Others who may be included in your care are dieticians, social workers, audiologists, neurologists,and physical therapists. Dr. Perrin will provide these referrals as needed. Please let her know if you would like to request a specific referral. For your convenience, Dr. Perrin sees patients at different [facility] locations including the [facility] at [facility], and [facility] at the main [facility]. While we try to make your appointments as convenient as possible, occasionally a visitto another location may be necessary to provide [...] goals. By signing my name below, I, FrancineLillian Evans, attest that this documentation has been prepared under the direction and in the presence of Dr. Ranjana Perrin MD. All medical record entries made by the Nishibe were at my direction and personally dictated by me. Ihave reviewed the chart and agree that the [...] discuss his care with Dr. Long at [facility] to understand current treatment plans 2. He will follow up with Dr. Daily and Dr. Michaud as scheduled. The patient's questions were answered. Chief Complaint An interactive audio and video telecommunication system which permits real time communications between the patient (at the originating site) and provider (at the distant site) was utilized to providethis telehealth service. Verbal consent was requested and obtained from YOLI ANTUNEZ on this date, 09/24/2022 08:30 AM, for a telehealth visit. Swallow History of [...] the distal esophagus and pill sticking in thevallecula Interval History (06/2022): He underwent a dilation with Dr. Daily. He has worsening in his swallow. He is choking on both solids and liquids. He has noted changes after the dilation. He noted no improvement in his voice after speech therapy.He has dysfluency that last for a few seconds to hours. No know triggers. He will undergo a DISE with Dr. Michaud. He (more content not included)...[facility] TouchworksEstabldavis regional [facility] Visit (Otolaryngology)No report was [facility] Informationon 09-13-2022 [email or web address]}[facility] Work Phone: [phone]-[facility] Work Phone: [phone]-KvjkqjedzpupupSioux County Custer Health [address] Work Phone: [facility] Surgical Pathology Departmenton [id number] Surgical Pathology DepartmentName YOLI ANTUNEZ JRAmarjit Pathologist: LIZZ LINN MD Date of Procedure: 09/13/2022 Date Received: 09/13/2022 Date Reported 09/26/2022 Submitting Physician: RUBY DAILY M.D. Location: [facility] Other External # FINAL DIAGNOSIS A. GE [...] reviewed this case. Diagnostic interpretation performed at [facility] [address] [place] [address] Clinical History: R/O Esophagitis and metaplasia Specimens Submitted As: A: GE JUNCTION COLD FORCEPS Gross Description: Received in formalin, labeled with the patient's name and hospital number and A , are 2 fragments of martin, soft tissue aggregating to 0.5 x 0.2 x 0.2 cm. The specimen is submitted in toto in one cassette. [facility]/09/21/2022 [facility] Department of Pathology [address] [place], [place] [address]St. Mary's HospitalComment on above:Performed By: #### [facility] #### [facility] Surgical Pathology Department [address] [place] [address] 81273Qwukf GI endoscopyon 70-35-8816Igsuw GI endoscopyPATIENTNAME Patient Name: Yoli Antunez EXAMDATE Procedure Date: 09/13/2022 3:41 PM PATIENTID PATIENTACCOUNTNUM PATIENTDOB Date of : 1955 ADMITTYPE Admit Type: Outpatient PATIENTROOM Site: [place] Procedure Room 2 ETHNICITY Ethnicity: Not or RACE Race: White PROVDR Attending MD: Ruby Daily MD, [id number] ENDOPROCEDURENAME Procedure: Upper GI endoscopy INDICATION Indications: Dysphagia, cricopharyngeal web PRIMARYPROVIDER Providers: Ruby Daily MD (Doctor), Vale Mercado RN (Nurse), Sabina Atkins, Merchandising Lead EDREFPROVIDER Referring: Ruby Daily MD CURRENT_MEDS Medicines: [...] medications. CPT_CODES Procedure Code(s): --- Professional --- 23207, Moderate sedation services provided by the same physician or other qualified health acute care nursing assistant performing the diagnostic or therapeutic service that the sedation supports, requiring the presence of an independent trained observer to assist in the monitoring of the patient's level of consciousness and physiological status; initial 15 minutes of intraservice time, patient age 5 years or older [address], Unlisted procedure, esophagus ICD_CODES Diagnosis Code(s): --- Professional --- J38.3, O (more content not included)...[facility] HospitalURGICAL PATHOLOGY RESULTSon 51-85-3961Adsqpwvyd ReportName YOLI ANTUNEZ JR. Pathologist: MAYELIN AVILEZ MD [...] ABNORMALITIES. Electronically Signed Out By MAYELIN AVILEZ MD/[facility] By the signature on this report, the individual or group listed as making the Final Interpretation/Diagnosis certifies that they have reviewed this case. Diagnostic interpretation performed at [facility] [address] [facility] [address] Clinical History: A) R/O H.pylori B) R/O [...] in toto in one cassette. DMB dmb/09/04/2022 [facility] Department of Pathology [address] [address]UnMemorial Health System Selby General HospitalEstablished Visit (Otolaryngology)on 70-02-0103Jezftjrbgvu Visit (Otolaryngology) Diagnoses/Problems Non-smoker (V49.89) (Z78.9) GERD [...] site) was utilized to providethis telehealth service. Verbal consent was requested and obtained from YOLI ANTUNEZ on this date, 09/04/2022 11:30 AM, for a telehealth visit. Dysphagia follow-up History of Present Wsmvspo58 year old man with history of dysphagia referred to me by Dr. Perrin for swallowing issues. 09/04/22: Here for follow-up. Esophagram completed 08/10/22 with moderate hiatal hernia, possible inflammatorynarrowing at GEJ, also area of mucosal irregularity for which endoscopy was recommended. He had manometry placed under endoscopy on 08/30/22, overall esophagus appeared normal on their exam with kigqn6qn nodule at GEJ that was biopsied. Pathology [...] antibiotics.About 2 times in the past year. He [...] in 2 weeks), thyroidectomy on levothyroxine,ACDF, ADA ROS performed. All other systems are [...] hernia, possible inflammatory na (more content not included)...[facility] 70-01-7443HekyBeth Diego MD - 10/15/2022 Patient Name: Yoli Antunez Procedure Date: 08/30/2022 7:32 AM Date of : 1955 Admit Type: Outpatient Site: [place] Procedure Room 5 Ethnicity: Not or Race: White Attending MD: ELISEO Williamson, [id number] Procedure: Upper GI endoscopy Indications: Dysphagia for 5 years to both liquids and solids Patient Profile: This is a 67 year old male. Refer to note in patient chart for documentation of history and physical. Providers: ELISEO Williamson (Doctor), Jaylen Lo, CARLOS (Nurse), Florentino De Dios, Merchandising Lead, Kristin Mcdaniels RN (Nurse) Referring: Radha Burris [...] specimen was done by the nurse and master automotive technician using the patient's name and medical record number. Estimated blood loss was minimal. A single 3 mm nodule was found at the gastroesophageal junction, 39 cm from the incisors. Biopsies were taken with a cold forceps for histology. Verification of patient identification for the specimen was done by the nurse and master automotive technician using the patient's name and medical [...] specimen was done by the nurse and master automotive technician using the patient's name and medical [...] the right naris un (more content not included)...[facility] Work Phone: Radiology Study observation (narrative)[facility] Work Phone: EGDOrdered By: Beth Diego on 46-91-0797NwahakjlzhMemorial Health System [facility] Work Phone: No Panel Informationon 79-21-1127Cqbo YOLI ANTUNEZ JR. Pathologist: MAYELIN AVILEZ MD Date of Procedure: 08/30/2022 Date [place] [address] Work Phone: [email or web address]}AC-Maspymlgmsqzal-Tybjekw Work Phone: [phone]-Hrdwtjletjrqfq-Stoney Work Phone: Order Reconciliationon 98-52-3651Hvibh Reconciliation Page 1 Discharge Reconciliation Document Reconciliation Type: Discharge requested on behalf of Beth Diego (Physician) done by Beth Diego) Discharge - Reconciliation: 30-Aug-2022 08:00 by: Beth Diego) Home Medications EnteredBROCKTON [facility]ENTERE MEDICATIONS AT DISCHARGE DateReconciliation Comment/ Additional Information [...] Vitamin B2 1.25 milligram(s) orally once a dayNormalUPeninsula Hospital, [place] Surgical Pathology Departmenton 33-87-1260MHE Surgical Pathology Department Name YOLI ANTUNEZ JR. [...] ABNORMALITIES. Electronically Signed Out By MAYELIN AVILEZ MD/[facility] By the signature on this report, the individual or group listed as making the Final Interpretation/Diagnosis certifies that they have reviewed this case. Diagnostic interpretation performed at [address] [facility] [address] Clinical History: A) R/O H.pylori B) R/O [...] in toto in one cassette. DMB dmb/09/04/2022 [facility] Department of Pathology [address] [place], [place] [address]NoLutheran Medical CenterComment on above:Performed By: #### [facility] #### [facility] Surgical Pathology Department [address] [place] [address] 715[address]Vfxrj GI endoscopyon 78-84-9731Zdgnz GI endoscopyPATIENTNAME Patient Name: Yoli Antunez EXAMDATE Procedure Date: 08/30/2022 7:32 AM PATIENTID PATIENTACCOUNTNUM PATIENTDOB Date of : 1955 ADMITTYPE Admit Type: Outpatient PATIENTROOM Site: [place] Procedure Room 5 ETHNICITY Ethnicity: Not or RACE Race: White PROVDR Attending MD: ELISEO Williamson, [id number] ENDOPROCEDURENAME Procedure: Upper GI endoscopy INDICATION Indications: Dysphagia for 5 years to both liquids and solids PTPROFILE Patient Profile: This is a 67 year old male. Refer to note in patient chart for documentation of history and physical. PRIMARYPROVIDER Providers: ELISEO Williamson (Doctor), Jaylen Lo RN (Nurse), Florentino De Dios, Merchandising Lead, Kristin Mcdaniels RN (Nurse) EDREFPROVIDER Referring: Radha Burris MD [facility] Provider Care Team: Ruby Daily MD [...] specimen was done by the nurse and master automotive technician using the patient's name and medical record number. Estimated blood loss was minimal. A single 3 mm nodule was found at the gastroesophageal junction, 39 cm from the incisors. Biopsies were taken with a cold forceps for histology. Verification of patient identification for the specimen was done by the nurse and master automotive technician using the patient's name and medical [...] specimen was done by the nurse and master automotive technician using the patient's name and medical [...] antrum and prepyloric re (more content not included)...NormalKindred Hospital at WayneEstablished Visit (Otolaryngology)on 55-62-1719Iqvpmpdodmw Visit (Otolaryngology)Diagnoses/Problems Difficulty with CPAP use (V49.89) (Z78.9) ADA [...] ScreeningAdult Risk Screening_: There are no spiritual/cultural practices/values/needsthat are important to know Initial Fall Risk Screening: YOLI has not fallen in the last 6 months. His fall did not result in injury. YOLI does not have a fear of falling. He does not need assistance with sitting, standing or walking. Does not need assistance walking in his home. He does not need assistance in an unfamiliar setting. The patientis not using an assistive device. Fall Risk [...] last and you didn't have money to getmore: No History of Present Illness Mr. ANTUNEZ , 1955, referred for an initial consultation with me but established with this practice, with a long history of waking up feeling unrefreshed, excessive daytime fatigue. [place] Sleepiness Scale Score is 16 /24. Fatigue [...] was prescribed CPAP; however, (more content not included)...NormalUH TouchworksTobacco Screening.on 71-13-9873Usvcn depression screening assessmentNo ZU-Xlzbdsonzwurco-Nujon MAC1 302 Work Phone: Fall risk assessmenta) No falls within the last year FJ-Hbxnibkuutbhwt-Jjuro MAC1 302 Work Phone: Tobacco use status CPHSb) ZvKK-Tvvytdukbxunau-Gjtak MAC1 302 Work Phone: SLP (Progress Note)on 88-92-1356KFP (Progress Note) Therapy Diagnosis Assessed Dysphagia, oropharyngeal [...] site) was utilized to providethis telehealth service. Verbal consent was requested and obtained from YOLI ANTUNEZ on this date, 08/13/2022 03:15 PM, for a telehealth visit. Adult Risk Screening [...] to doctors? appointments. Primary Language for learning: Georgian. Insurance Insurance reviewed Visit number: 3 Onset Date: 2022 Medicare Certification Period: Beginnin2022 Endin2022 Subjective Living Environment: home Patient arrival: independent Patient alert and ready to participate in telehealth visit this date. Objective Progress to date: long-term goals: 1. Patient will safety tolerate the [...] verbalized understanding and agreement: yes CPT Code 99218 Treatment of swallowing dysfunction and/or oral function for feeding Signatures Electronically signed by : Yoanna Quigley CCC-SPECIAL ORDER JEWELER; Aug 13 2022 3:44PM EST (Author)[facility] TouchworksGI ESOPHAGRAMon 62-89-8658GB ESOPHAGRAMMRN: [id number] Patient Name: YOLI ANTUNEZ STUDY: GI ESOPHAGRAM; ; 08/10/2022 1:49 pm INDICATION: assess motility, r/o achalasia, assess mass/lesions R13.12: Dysphagia, oropharyngeal phase. COMPARISON: None. ACCESSION NUMBER(S): [id number] ORDERING CLINICIAN: RUBY DAILY TECHNIQUE: Fluoroscopic guided single and double contrast barium esophagram. FINDINGS: Chip Separator view of the chest, abdomen shows loop [...] this study. Electronically signed by: JAE SOUTH MDLima [facility] Hospital Radiologyon 05-31-0102ZK Esophagus Views W contrast PONormal RE-Bfmiavogappaat-Yhdsdww Work Phone: established Visit (Otolaryngology)on 07-31-2022 Established Visit (Otolaryngology)Diagnoses/Problems GERD (gastroesophageal reflux disease) (530.81) (K21.9) Dysphagia, [...] site) was utilized to providethis telehealth service. Verbal consent was requested and obtained from YOLI ANTUNEZ on this date, 07/31/2022 12:30 PM, for a telehealth visit. Swallow History of Present Wbbhebz56 year old man with history of dysphagia [...] antibiotics.About 2 times in the past year. He [...] in 2 weeks), thyroidectomy on levothyroxine,ACDF, ADA ROS performed. All other systems are [...] DAILY. Omeprazole 20 MG (more content not included)...NormalUH TouchworksTobacco Screening.on 35-08-7133Mmenk depression screening assessmentNo OS-Qsortmhpduwunx-Ythkqpr Work Phone: Fall risk assessmentb) One or more falls in the last mxacZY-Cfwloezyvpetsg-Xbyxvic Work Phone: Tobacco use status CPHSb) OjWE-Ivdsmzcopntbnh-Hjbwpni Work Phone: sLP (Progress Note)on 97-25-1784XZB (Progress Note)No report was sentNormalUH TouchworksSLP (Progress Note)Therapy Diagnosis Assessed Dysphagia, oropharyngeal phase (787.22) (R13.12) [...] to be completed 10 times, 5 times aday: 1. Lingual press 2. Lisbeth maneuver 3. Gargling exercise 4. Laryngeal elevation (Shaker) exercise 5. Effortful swallow Clinician modeled all techniques and accurate patient follow through confirmed. Handouts emailed tofacilitate optimal home carryover. Adult Risk Screening There [...] to doctors? appointments. Primary Language for learning: Georgian. Insurance Insurance reviewed Visit number: 2 Onset Date: 2022 Medicare Certification Period: Beginnin2022 Endin2022 Subjective Living Environment: home Patient arrival: independent Patient alert and ready to participate in telehealth visit this date. Objective Progress to date: terminal makeup operator goals: 1. 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 COMPARISON: None. ACCESSION NUMBER(S): [id number] ORDERING CLINICIAN: RANJANA PERRIN TECHNIQUE: MBSS completed. Informed verbal consent obtained prior to completion of exam. Trials of thin, nectar thick, honey thick, puree, soft-solids, and regular solids given. Fluoroscopy time : 3 minutes, 2 seconds. SPECIAL ORDER JEWELER: Osmel Lozano M.S., CCC-SPECIAL ORDER JEWELER Phone/Pager: Can be contacted via Webflakes or SPEECH FINDINGS: Reason for referral: A [...] a home program 2-3 times per day. terminal makeup operator goals: Patient will be able to tolerate [...] regarding the esophageal phase of the swallow. SPECIAL ORDER JEWELER impressions with severity rating: Patient presents with [...] mL nectar thi (more content not included)... NormalSt. Francis HospitalNo Panel Informationon 84-26-7086Zxgnvc CU-Uqdfwiggvlvtqz-Kdqzimd Voice Work Phone: Swallow Evaluation v2-Modified Barium Swallow, SLPon 14-31-3532Jhsxxex Evaluation v2-Modified Barium Swallow, SLPRehab: Info: Time IN11:05 Time OUT11:55 Total Treatment Dhhmncr45 Evaluation TypeModified Barium Swallow, SPECIAL ORDER JEWELER Impression: Assessment (Swallow Eval)SPECIAL ORDER JEWELER impressions with severity rating: [Patient presents with [...] of the EMR/AEMR Electronic Signatures: Osmel Lozano (SPECIAL ORDER JEWELER) (Signed 18-Jul-2022 14:17) Authored: Fransico, Impression Last Updated: 18-Jul-2022 14:17 by Osmel Lozano (SPECIAL ORDER JEWELER)[facility] GreeneEstablished Visit (Otolaryngology)on 23-22-1781Mesinqpbzrv Visit (Otolaryngology)Diagnoses/Problems Non-smoker (V49.89) (Z78.9) GERD (gastroesophageal reflux disease) [...] assist you through your ENT care at [facility]. Dr. Perrin is an ENT surgeon who specializes in voice, airway and swallowing issues. This means that she specializes in taking care of patients with complex voice, airway and swallowing problems. Dr. Perrin's office number is [phone]. Please use this number to contact her and her care team regardless of which office you use to access care. This number is the most direct way to communicate with all the members of the care team. Dr. Perrin?s school secretary answers the office phone from 9am-4pm Mon-Fri. Call [phone] and push 2. She can help you with scheduling of appointments, general questions and information. You may needto leave a message if she is helping another patient. In this case, someone from the team will callyou back the same day if you leave your message before 3pm, or the next business morning. Dr. Perrin?s nurse and can be reached by calling [phone]. We make every effort to return phone calls the same day. If you are in need of urgent assistance after hours, please call [phone] ask for ENT paint line production supervisor. Dr. Perrin works closely with speech therapists as they work together to help solve your issues with speech and swallowing. You may see a speech therapist during your appointment if Dr. Perrin feels this is needed. If you need to reach speech therapy to talk with a therapist or to schedule an appointment, please call [phone]. Others who may be included in your care are dieticians, social workers, audiologists, neurologists,and physical therapists. Dr. Perrin will provide these referrals as needed. Please let her know if you would like to request a specific referral. For your convenience, Dr. Perrin sees patients at different [facility] locations including the [facility] at [facility], and [facility] at the main [facility]. While we try to make your appointments as convenient as possible, occasionally a visitto another location may be necessary to provide [...] my direction and personally dictated by me. Brendaave reviewed the chart and agree that the [...] be started on Omeprazole (more content not included)...NormalUH TouchworksTobacco Screening.on 58-51-4295Cpwud depression screening assessmentNo FR-Uukblelfmcfrgw-RiuzjspAltru Health System Hospital 4100 Work Phone: Fall risk assessmentb) One or more falls in the last bsojXX-Oaesfdjpvdvaou-DmaxcieChoctaw Regional Medical Center 4100 Work Phone: Tobacco use status CPHSb) RuLG-Bzzkncmvceerhr-NispjxfKettering Health Preble 4100 Work Phone: BNPon 55-00-4838Vjcnaybavvh peptide B (Bld) [Mass/Vol] 182.0 pg/mLNormal<=900.0Select [facility] - AkronComment on above:Performed By: #### HSTROPN #### [facility] [address] [place] [address] Dr. Kulwant DICK ADMITon 81-86-8374NS [Catalytic activity/Vol]86 U/L Lcrmrj99-349BtrSelect Medical Specialty Hospital - AkronComment on above:Performed By: #### LACT #### [facility] [address] [place] [address] Dr. Kulwant Patton.MB [Mass/Vol]0.84 ng/mLNormal<=3.60[facility] Comment on above:Performed By: #### LACT #### [facility] [address] [place] [address] Dr. Kulwant LockwoodTROP4.6 pg/mLNormal4.0-76.1[facility] Hospital - AkronComment on above:Result Comment: CUT-OFF POINTS HAVE BEEN ESTABLISHED BASED ON THE FOURTH UNIVERSAL DEFINITIONS OF MYOCARDIAL INFARCTION. THE UPPER REFERENCE LIMIT (URL) OF TROPONIN, DEFINED THE 99TH PERCENTILE OF cTnI DISTRIBUTION IN A REFERENCE POPULATION, HAS BEEN CONFIRMED THE DECISION THRESHOLD FOR [place] DIAGNOSIS.Performed By: #### LACT #### [facility] [address] [place] [address] Dr. Kulwant PinedaO52 ng/zPMbadkl39-90ZgfSelect Medical Specialty Hospital - AkronComment on above: Performed By: #### LACT #### [facility] [address] [place] [address] AUTO DIFFon 94-12-1104RYIF #0.1 103/ulNormal0.0-0.1[facility] - AkronComment on above:Performed By: #### LACT #### [facility] [address] [place] [address] Dr. Kulwant Woodsophils/100 WBC (Bld)0.5 %Normal0.2-2.0[facility] Comment on above:Performed By: #### LACT #### [facility] [address] [place] [address] Dr. Kulwant Radford #0.2 103/ulNormal0.0-0.7The [facility] Samaritan HospitalComment on above: Performed By: #### LACT #### [facility] [address] [place] [address] Dr. Kulwant Sellersosinophils/100 WBC (Bld)2.6 %Normal0.9-7.0The [facility] Comment on above:Performed By: #### LACT #### [facility] [address] [place] [address] Dr. Kulwant Sellersrythrocyte distribution width (RBC) [Ratio]15.0 %Uglsff71.0-15.0 The [facility]itan HospitalComment on above:Performed By: #### LACT #### [facility] [address] [place] [address] Dr. Kulwant BrennanHematocrit (Bld) [Volume fraction]42.3 %Jokjbx71.0-54.0The [facility]aritan HospitalComment on above:Performed By: #### LACT #### [facility] [address] [place] [address] Dr. Kulwant BrennanHemoglobin (Bld) [Mass/Vol]14.0 g/kFMiuydy25.0-18.0The [facility]itan HospitalComment on above:Performed By: #### LACT #### [facility] [address] [place] [address] Dr. Kulwant Coronado #0.10 10e3/ulCritically high0.00-0.03The [facility] Comment on above:Performed By: #### LACT #### [facility] [address] [place] [address] Dr. Kulwant Coronado %1.1 %Critically high0.0-0.5The [facility]aritan HospitalComment on above:Performed By: #### LACT #### [facility] [address] [place] [address] Dr. Kulwant Griffith #2.7 103/ulNormal1.2-3.8The [facility]aritan HospitalComment on above:Performed By: #### LACT #### [facility] [address] [place] [address] Dr. Kulwant Hallmphocytes/100 WBC (Bld)29.1 %Hujttv53.5-60.0The [facility]aritan HospitalComment on above:Performed By: #### LACT #### [facility] [address] [place] [address] Dr. Kulwant KaplanUAL DIFF REQNONormalThe [facility] Samaritan HospitalComment on above: Performed By: #### LACT #### [facility] [address] [place] [address] Dr. Kulwant Hagan (RBC) [Entitic mass]27.0 amEtegew24.9-34.0The [facility] HospitalComment on above:Performed By: #### LACT #### [facility] [address] [place] [address] Dr. Kulwant Wilkinson (RBC) [Mass/Vol]33.1 g/jLXsdokn37.9-35.2The [facility] HospitalComment on above:Performed By: #### LACT #### [facility] [address] [place] [address] Dr. Kulwant Foley (RBC) [Entitic vol]81.5 cRIoerev19.0-94.0The [facility] HospitalComment on above:Performed By: #### LACT #### [facility] [address] [place] [address] Dr. Kulwant Aguirre #1.0 103/ulCritically high0.3-0.8The [facility] Comment on above:Performed By: #### LACT #### [facility] [address] [place] [address] Dr. Kulwant Malcolmocytes/100 WBC (Bld)10.5 %Normal1.7-12.0The [facility] Comment on above:Performed By: #### LACT #### [facility] [address] [place] [address] Dr. Kulwant Mena #5.1 103/ulNormal1.4-6.5The [facility]aritan HospitalComment on above:Performed By: #### LACT #### [facility] [address] [place] [address] Dr. Kulwant Plasenciautrophils/100 WBC (Bld)56.2 %Ggkxcw65.0-75.0The [facility]aritan HospitalComment on above:Performed By: #### LACT #### [facility] [address] [place] [address] Dr. Kulwant Díazlet mean volume (Bld) [Entitic vol]10.0 fLNormal9.5-13.5The [facility] HospitalComment on above:Performed By: #### LACT #### [facility] [address] [place] [address] Dr. Kulwant BrennanPLT251 103/olObmbye060-616Duw [facility] HospitalComment on above: Performed By: #### LACT #### [facility] [address] [place] [address] Dr. Kulwant BrennanRBC5.19 106/ulNormal4.70-6.10The [facility] HospitalComment on above:Performed By: #### LACT #### [facility] [address] [place] [address] Dr. Blum ChangWBC9.1 103/ulNormal4.0-11.0The [facility] HospitalComment on above: Performed By: #### LACT #### [facility] [address] [place] [address] Dr. Kulwant BrennanCT STROKE HEAD WOon 69-44-8504YD STROKE HEAD WOEXAMINATION: CT STROKE HEAD WO HISTORY: Pain . History of [...] Electronically authenticated by: CONNER TANG Date: 2022-06-04 07:16NoMercy Health St. Anne HospitalCovid-19 PCR (CVDTBH)on 68-47-1299LUGB-CoV-2 (COVID-19) RNA MIKE+probe Ql (Unsp spec)Not detectedNormalNOT DETECTEDThe [facility] Comment on above:Result Comment: When diagnostic testing is negative, the [...] for this test is supported by the [employer] of Health and Human Service's declaration that circumstances exist to justify the emergency use of in vitro diagnostics for the detection and/or diagnosis of the virus that causes COVID-19. This EUA will remain in effect for the duration of the COVID-19 declaration justifying emergency of IVDs, unless it is terminated or revoked by the FDA (after which the test may no longer be used).Performed By: #### HSTROPN #### [facility] [address] [place] [address] Dr. Kulwant Dykeson 84-11-3449O-DIMER0.38 mg/L FEUNormal<=0.59The [facility] on above:Performed By: #### DDIM #### [facility] [address] [place] [address] Dr. Kulwant Dykes [facility] on above:Result Comment: Increases in D-Dimer concentration observed with thromboembolic events [...] stress, and generalized hospitalization. Performed By: #### DDIM #### [facility] [address] [place] [address] Dr. Kulwant BrennanPROSophia 14(COMP METB)on 91-34-2666Yrwblew [Mass/Vol]4.1 g/dLNormal 3.4-5.0The [facility] on above:Performed By: #### HSTROPN #### [facility] [address] [address] [address] Kulwant BrennanAlbumin/Globulin [Mass ratio]1.1 {ratio}NormalThe [facility] HospitalComment on above:Performed By: #### HSTROPN #### [facility] [address] [address] [address] Kulwant MedinaP [Catalytic activity/Vol]78 U/EDjuecj72-802Yez [facility] HospitalComment on above:Performed By: #### HSTROPN #### [facility] [address] [address] [address] Kulwant MedinaT [Catalytic activity/Vol]26 U/SZdrzpr43-12Sou [facility] HospitalComment on above:Performed By: #### HSTROPN #### [facility] [address] [address] [address] Kulwant Cardozaon gap [Moles/Vol]16.3 mmol/LNormalThe [facility] Comment on above:Performed By: #### HSTROPN #### [facility] [address] [address] [address] Kulwant BrennanAST [Catalytic activity/Vol]18 U/YWopnae63-71Jij [facility] HospitalComment on above:Performed By: #### HSTROPN #### [facility] [address] [address] [address] Kulwant BrennanBilirubin [Mass/Vol]0.4 mg/dLNormal0.2-1.0The [facility] Comment on above:Performed By: #### HSTROPN #### [facility] [address] [address] [address] Kulwant BrennanCalcium [Mass/Vol]8.4 mg/dLCritically low8.5-10.1The [facility] HospitalComment on above:Performed By: #### HSTROPN #### [facility] [address] [address] [address] Kulwant BrennanChloride [Moles/Vol]104 mmol/ZPgpmth74-766Pwp [facility] Comment on above:Performed By: #### HSTROPN #### [facility] [address] [address] [address] Kulwant BrennanCO2 [Moles/Vol]24.8 mmol/NMzqqfz29.0-32.0The [facility] Comment on above:Performed By: #### HSTROPN #### [facility] [address] [address] [address] Kulwant BrennanCreatinine [Mass/Vol]1.52 mg/dLCritically high0.70-1.30The [facility] HospitalComment on above:Performed By: #### HSTROPN #### [facility] [address] [address] [address] Blum ChangEGFR-AF QGUGXKUZ18 mL/min/1.67n6Cvkfagbcak low>=60The [facility] HospitalComment on above:Performed By: #### HSTROPN #### [facility] [address] [address] [address] Kulwant SellersGFR-NON AF URHXUBXO70 mL/min/1.52v5Qkzlrtthtj low>=60The [facility] HospitalComment on above:Performed By: #### HSTROPN #### [facility] [address] [address] [address] Kulwant BrennanGlobulin (S) [Mass/Vol]3.6 g/dLNormalThe [facility] HospitalComment on above:Performed By: #### HSTROPN #### [facility] [address] [address] [address] Kulwant BrennanGlucose [Mass/Vol]102 mg/wZWiepaz03-400WxdSelect [facility] [place] Comment on above:Performed By: #### HSTROPN #### [facility] [address] [address] [address] Kulwant BrennanPotassium [Moles/Vol]4.1 mmol/LNormal3.5-5.1The [facility] Comment on above:Performed By: #### HSTROPN #### [facility] [address] [address] [address] Kulwant BrennanProtein [Mass/Vol]7.7 g/dLNormal6.4-8.2The [facility] Comment on above:Performed By: #### HSTROPN #### [facility] [address] [address] [address] Kulwant Seoum [Moles/Vol]141 mmol/VRwfirp684-829Izi [facility] Comment on above:Performed By: #### HSTROPN #### [facility] [address] [address] [address] Kulwant Scott nitrogen [Mass/Vol]30.0 mg/dLCritically high7.0-18.0[facility]ronComment on above:Performed By: #### HSTROPN #### [facility] [address] [address] [address] Kulwant Scott nitrogen/Creatinine [Mass ratio]19.7 mg/mgNoalThPaulding County HospitalComment on above:Performed By: #### HSTROPN #### [facility] [address] [address] [address] Kulwant YepezIMEon 61-44-5823LPV Coag (PPP) [Relative time]0.99 {INR} NormalSelect Medical Specialty Hospital - AkronComment on above:Performed By: #### PTT, PT ####[facility] [address] [address]Dr. Kulwant Guidry GUIDELINESSEE BELOWTrumbull Regional Medical CenterComment on above: Result Comment: DESIRED INR: 2.0 - 3.0 CONDITIONS NOT LISTED BELOW 2.5 - 3.5 FOR PROSTHETIC HEART VALVE REPLACEMENT 2.5 - 3.5 RECURRENT THROMBOSISPerformed By: #### PTT, PT ####[facility] [address] [address]Dr. Kulwant Soler Coag (PPP) [Time]10.5 sNormal9.0-11.6The [facility] HospitalComment on above:Performed By: #### PTT, PT ####[facility] [address] [address]Dr. Kulwant Avelar 91-59-8500oNPD Coag (Bld) [Time]30.4 pBlxvll03.3-36.2The [facility] Comment on above:Performed By: #### PTT, PT ####[facility] [address] [address]Dr. Kulwant Paiz, HIGH SENSITIVITYon 41-20-1477PNHGPL4.5 pg/mLNormal4.0-76.1The [facility] HospitalComment on above: Result Comment: CUT-OFF POINTS HAVE BEEN ESTABLISHED BASED ON THE FOURTH UNIVERSAL DEFINITIONS OF MYOCARDIAL INFARCTION. THE UPPER REFERENCE LIMIT (URL) OF TROPONIN, DEFINED THE 99TH PERCENTILE OF cTnI DISTRIBUTION IN A REFERENCE POPULATION, HAS BEEN CONFIRMED THE DECISION THRESHOLD FOR [place] DIAGNOSIS.Performed By: #### HSTROPN ####[facility] [address] [address]DrAmarjit BrennanHSTROP4.3 pg/mLNormal 4.0-76.1The [facility] HospitalComment on above:Result Comment: CUT-OFF POINTS HAVE BEEN ESTABLISHED BASED ON THE FOURTH UNIVERSAL DEFINITIONS OF MYOCARDIAL INFARCTION. THE UPPER REFERENCE LIMIT (URL) OF TROPONIN, DEFINED THE 99TH PERCENTILE OF cTnI DISTRIBUTION IN A REFERENCE POPULATION, HAS BEEN CONFIRMED THE DECISION THRESHOLD FOR NH DIAGNOSIS.Performed By: #### HSTROPN #### [facility] [address] [place] [address] Dr. Kulwant Reardon 23-59-9305TYX7.572 uIU/mLNormal0.358-3.740The [facility] HospitalComment on above:Performed By: #### LACT #### [facility] [address] [place] [address] Dr. Kulwant BrennanXR CHEST 1 Von 77-20-6680AK CHEST 1 VEXAM: XR CHEST 1 V 06/04/2022 3:44 AM [...] Electronically authenticated by: FLORENTIN PALMA Date: 2022-06-04 04:40[facility] CenterXR [facility] 2 Von 11-88-8402OW CHEST 2 VEXAMINATION: XR CHEST 2 V, , 06/04/2022 3:00 PM EST [...] Electronically authenticated by: NICOLE CASAREZ Date: 2022-06-04 16:28[facility] CenterXR Hand Complete Left*on 44-70-8586WZ Hand Complete Left* FINDINGS: Moderate to severe [...] and signed by Chaz Moreau on 04/17/2022 1415NormalNorthern [place] [place] By [facility] SpecialistECHO LIMITED STUDYon 67-94-3778NPSU LIMITED STUDYPatient: YOLI ANTUNEZ. Exam Date: 03/22/2022 : 1955 Gender:M [facility]ing : [facility] Admission #: [id number] Family : Order #: [id number] CLICK HERE TO VIEW EXAM ECHOCARDIOGRAM REPORT [...] by: Mono Christie M.D. on 03/22/2022 at 20:31[facility] CenterXR Abdomen Single View (KUB)*on 08-44-0739AP Abdomen Single View (KUB)* FINDINGS: Moderate volume [...] and signed by Chaz Moreau on 03/21/2022 0944NormalNorthern [place]-[facility], [place] SpecialistAMYLASEon 53-35-8798Qkinpwd [Catalytic activity/Vol]58 U/TUhsqia90-788Xvn [facility] HospitalComment on above:Performed By: #### LIPYAHIR Levi, CMP #### [facility] [address] [address] [address] AUTO DIFFon 32-81-5335LBJB #0.1 103/ulNormal0.0-0.1The [facility] HospitalComment on above:Performed By: #### LACT #### [facility] [address] [address] [address] Kulwant BrennanBasophils/100 WBC (Bld)0.8 %Normal0.2-2.0[facility] Comment on above:Performed By: #### LACT #### [facility] [address] [address] [address] Kulwant Radford #0.2 103/ulNormal0.0-0.7The [facility] HospitalComment on above: Performed By: #### LACT #### [facility] [address] [address] [address] Kulwant Sellersosinophils/100 WBC (Bld)2.3 %Normal0.9-7.0[facility] Comment on above:Performed By: #### LACT #### [facility] [address] [address] [address] Kulwant Sellersrythrocyte distribution width (RBC) [Ratio]14.6 %Kreend13.0-15.0 [facility] - AkronComment on above:Performed By: #### LACT #### [facility] [address] [address] [address] Kulwant BrennanHematocrit (Bld) [Volume fraction]39.9 %Critically low42.0-54.0 [facility] - AkronComment on above:Performed By: #### LACT #### [facility] [address] [address] [address] Kulwant BrennanHemoglobin (Bld) [Mass/Vol]12.7 g/dLCritically low14.0-18.0The [facility] HospitalComment on above:Performed By: #### LACT #### [facility] [address] [place] [address] Dr. Kulwant Coronado #0.03 10e3/ulNormal0.00-0.03The [facility] HospitalComment on above:Performed By: #### LACT #### [facility] [address] [place] [address] Dr. Kulwant Coronado %0.5 %Normal0.0-0.5The [facility] HospitalComment on above: Performed By: #### LACT #### [facility] [address] [place] [address] Dr. Kulwant Griffith #1.9 103/ulNormal1.2-3.8The [facility] HospitalComment on above:Performed By: #### LACT #### [facility] [address] [place] [address] Dr. Kulwant Méndezhocytes/100 WBC (Bld)28.3 %Ykyvui23.5-60.0The [facility] HospitalComment on above:Performed By: #### LACT #### [facility] [address] [place] [address] Dr. Kulwant KaplanUAL DIFF REQNONormalThe [facility] HospitalComment on above: Performed By: #### LACT #### [facility] [address] [place] [address] Dr. Kulwant Wilkinson (RBC) [Entitic mass]27.4 yqRxhhbj73.9-34.0The [facility] HospitalComment on above:Performed By: #### LACT #### [facility] [address] [place] [address] Dr. Kulwant Wilkinson (RBC) [Mass/Vol]31.8 g/oYUiwxul66.9-35.2The [facility] HospitalComment on above:Performed By: #### LACT #### [facility] [address] [place] [address] Dr. Kulwant Wilkinson (RBC) [Entitic vol]86.0 lBZzrwie44.0-94.0The [facility] HospitalComment on above:Performed By: #### LACT #### [facility] [address] [place] [address] Dr. Kulwant Aguirre #0.7 103/ulNormal0.3-0.8The [facility] HospitalComment on above:Performed By: #### LACT #### [facility] [address] [place] [address] Dr. Kulwant Malcolmocytes/100 WBC (Bld)10.4 %Normal1.7-12.0The [facility] Comment on above:Performed By: #### LACT #### [facility] [address] [place] [address] Dr. Kulwant Mena #3.8 103/ulNormal1.4-6.5The [facility] HospitalComment on above:Performed By: #### LACT #### [facility] [address] [place] [address] Dr. Kulwant Plasenciautrophils/100 WBC (Bld)57.7 %Rwqzjw60.0-75.0The [facility] HospitalComment on above:Performed By: #### LACT #### [facility] [address] [place] [address] Dr. Kulwant Hinds mean volume (Bld) [Entitic vol]9.9 fLNormal9.5-13.5The [facility] HospitalComment on above:Performed By: #### LACT #### [facility] [address] [place] [address] Dr. Kulwant PriceT224 103/wiWxoakg270-154Neg [facility] HospitalComment on above: Performed By: #### LACT #### [facility] [address] [place] [address] Dr. Kulwant PrattC4.64 106/ulCritically low4.70-6.10The [facility] HospitalComment on above:Performed By: #### LACT #### [facility] [address] [place] [address] Dr. Kulwant BrennanWBC6.6 103/ulNormal4.0-11.0The [facility] HospitalComment on above: Performed By: #### LACT #### [facility] [address] [place] [address] Dr. Kulwant Amoson 86-06-3613Nevhyn [Catalytic activity/Vol]174.0 U/LNormal 73.0-393.0The [facility] HospitalComment on above:Performed By: #### LIPA, YAHIR, CMP #### [facility] [address] [place] [address] Dr. Kulwant Lambert 14(COMP METB)on 17-65-7470Wiboogb [Mass/Vol]4.2 g/dLNormal 3.4-5.0The [facility] HospitalComment on above:Performed By: #### LIPA, YAHIR, CMP #### [facility] [address] [place] [address] Dr. Kulwant BrennanAlbumin/Globulin [Mass ratio]1.0 {ratio}NormalThe [facility] HospitalComment on above:Performed By: #### LIPA, YAHIR, CMP #### [facility] [address] [place] [address] Dr. Kulwant Ga [Catalytic activity/Vol]106 U/EOcluzw97-891Yiq [facility] Hospitalment on above:Performed By: #### LIPA, YAHIR, CMP #### [facility] [address] [place] [address] Dr. Kulwant Bush [Catalytic activity/Vol]91 U/LCritically zvkh51-61Lbs [facility] HospitalComment on above:Performed By: #### LIPA, YAHIR, CMP #### [facility] [address] [place] [address] Dr. Kulwant Akbar gap [Moles/Vol]13.8 mmol/LNormalThe [facility] Comment on above:Performed By: #### LIPA, YAHIR, CMP #### [facility] [address] [place] [address] Dr. Kulwant Ortiz [Catalytic activity/Vol]26 U/OFlludm40-54Nqv [facility] HospitalComment on above:Performed By: #### LIPA, YAHIR, CMP #### [facility] [address] [place] [address] Dr. Kulwant BrennanBilirubin [Mass/Vol]0.5 mg/dLNormal0.2-1.0[facility] Comment on above:Performed By: #### YAHIR GARCIA, CMP #### [facility] [address] [place] [address] Dr. Kulwant BrennanCalcium [Mass/Vol]8.3 mg/dLCritically low8.5-10.1The [facility] HospitalComment on above:Performed By: #### LIPYAHIR Levi, CMP #### [facility] [address] [place] [address] Dr. Kulwant BrennnaChloride [Moles/Vol]103 mmol/BDisnjj35-011HbgSelect Medical Specialty Hospital [facility] [place] Comment on above:Performed By: #### YAHIR GARCIA, CMP #### [facility] [address] [place] [address] Dr. Kulwant BrennanCO2 [Moles/Vol]26.5 mmol/NKysmco54.0-32.0[facility] Comment on above:Performed By: #### YAHIR GARCIA, CMP #### [facility] [address] [place] [address] Dr. Kulwant BrennanCreatinine [Mass/Vol]1.37 mg/dLCritically high0.70-1.30The [facility] HospitalComment on above:Performed By: #### YAHIR GARCIA, CMP #### [facility] [address] [place] [address] Dr. Blum ChangEGFR-AF ANGUILLAN>60Normal>=60The [facility] HospitalComment on above:Performed By: #### YAHIR GARCIA, CMP #### [facility] [address] [place] [address] Dr. Kulwant SellersGFR-NON AF KORACBWS28 mL/min/1.71q3Ysuhlptmge low>=60The [facility] HospitalComment on above:Performed By: #### YAHIR GARCIA, CMP #### [facility] [address] [place] [address] Dr. Kulwant BrennanGlobulin (S) [Mass/Vol]4.1 g/dLNoMercy Health St. Anne HospitalComment on above:Performed By: #### YAHIR GARCIA, CMP #### [facility] [address] [address] [address] Kulwant BrennanGlucose [Mass/Vol]96 mg/aMYbkhiq60-740HpdSelect Medical Specialty Hospital [facility] [place] Comment on above:Performed By: #### YAHIR GARCIA, CMP #### [facility] [address] [place] [address] Dr. Kulwant BrennanPotassium [Moles/Vol]4.3 mmol/LNormal3.5-5.1The [facility] Comment on above:Performed By: #### YAHIR GARCIA, CMP #### [facility] [address] [place] [address] Dr. Kulwant BrennanProtein [Mass/Vol]8.3 g/dLCritically high6.4-8.2The [facility] HospitalComment on above:Performed By: #### YAHIR GARCIA, CMP #### [facility] [address] [place] [address] Dr. Kulwant BrennanSodium [Moles/Vol]139 mmol/LXwfepz289-917Lun [facility] Comment on above:Performed By: #### YAHIR GARCIA, CMP #### [facility] [address] [place] [address] Dr. Kulwant BrennanUrea nitrogen [Mass/Vol]27.0 mg/dLCritically high7.0-18.0The [facility] HospitalComment on above:Performed By: #### YAHIR GARCIA, CMP #### [facility] [address] [place] [address] Dr. Kulwant BrennanUrea nitrogen/Creatinine [Mass ratio]19.7 mg/mgNoMercy Health St. Anne HospitalComment on above:Performed By: #### YAHIR GARCIA, CMP #### [facility] [address] [place] [address] AUTO DIFFon 32-87-2076ZFHM #0.1 103/ulNormal0.0-0.1[facility] - AkronComment on above:Performed By: #### HSTROPN #### [facility] [address] [place] [address] Dr. Kulwant BrennanBasophils/100 WBC (Bld)0.5 %Normal0.2-2.0[facility] Comment on above:Performed By: #### HSTROPN #### [facility] [address] [place] [address] Dr. Kulwant Radford #0.2 103/ulNormal0.0-0.7The [facility] HospitalComment on above: Performed By: #### HSTROPN #### [facility] [address] [place] [address] Dr. Kulwant Sellersosinophils/100 WBC (Bld)2.3 %Normal0.9-7.0[facility] Comment on above:Performed By: #### HSTROPN #### [facility] [address] [place] [address] Dr. Kulwant Sellersrythrocyte distribution width (RBC) [Ratio]14.6 %Usobwh29.0-15.0 [facility] - AkronComment on above:Performed By: #### HSTROPN #### [facility] [address] [place] [address] Dr. Kulwant BrennanHematocrit (Bld) [Volume fraction]35.8 %Critically low42.0-54.0 The [facility] HospitalComment on above:Performed By: #### HSTROPN #### [facility] [address] [place] [address] Dr. Kulwant BrennanHemoglobin (Bld) [Mass/Vol]11.4 g/dLCritically low14.0-18.0[facility] - AkronComment on above:Performed By: #### HSTROPN #### [facility] [address] [place] [address] Dr. Kulwant Coronado #0.33 10e3/ulCritically high0.00-0.03[facility] Comment on above:Performed By: #### HSTROPN #### [facility] [address] [address] [address] Kulwant Coronado %3.2 %Critically high0.0-0.5The [facility] HospitalComment on above:Performed By: #### HSTROPN #### [facility] [address] [address] [address] Kulwant Griffith #1.9 103/ulNormal1.2-3.8The [facility] HospitalComment on above:Performed By: #### HSTROPN #### [facility] [address] [place] [address] Dr. Kulwant Méndezhocytes/100 WBC (Bld)18.3 %Critically low20.5-60.0The [facility] HospitalComment on above:Performed By: #### HSTROPN #### [facility] [address] [place] [address] Dr. Kulwatn KaplanUAL DIFF REQNONormalThe [facility] HospitalComment on above: Performed By: #### HSTROPN #### [facility] [address] [place] [address] Dr. Kulwant Hagan (RBC) [Entitic mass]26.8 mxJkgkrw20.9-34.0The [facility] HospitalComment on above:Performed By: #### HSTROPN #### [facility] [address] [place] [address] Dr. Kulwant Wilkinson (RBC) [Mass/Vol]31.8 g/iFVofmda47.9-35.2The [facility] HospitalComment on above:Performed By: #### HSTROPN #### [facility] [address] [place] [address] Dr. Kulwant Wilkinson (RBC) [Entitic vol]84.0 jWCxcuhp87.0-94.0The [facility] HospitalComment on above:Performed By: #### HSTROPN #### [facility] [address] [place] [address] Dr. Kulwant Aguirre #0.9 103/ulCritically high0.3-0.8The [facility] Comment on above:Performed By: #### HSTROPN #### [facility] [address] [place] [address] Dr. Kulwant Malcolmocytes/100 WBC (Bld)9.2 %Normal1.7-12.0[facility] Comment on above:Performed By: #### HSTROPN #### [facility] [address] [place] [address] Dr. Kulwant Mena #6.8 103/ulCritically high1.4-6.5The [facility] Comment on above:Performed By: #### HSTROPN #### [facility] [address] [place] [address] Dr. Kulwant Plasenciautrophils/100 WBC (Bld)66.5 %Rnazyp62.0-75.0The [facility] HospitalComment on above:Performed By: #### HSTROPN #### [facility] [address] [place] [address] Dr. Kulwant BrennanPlatelet mean volume (Bld) [Entitic vol]10.5 fLNormal9.5-13.5The [facility] HospitalComment on above:Performed By: #### HSTROPN #### [facility] [address] [place] [address] Dr. Kulwant BrennanPLT357 103/uwQqqisb265-303Jxu [facility] HospitalComment on above: Performed By: #### HSTROPN #### [facility] [address] [place] [address] Dr. Kulwant BrennanRBC4.26 106/ulCritically low4.70-6.10The [facility] HospitalComment on above:Performed By: #### HSTROPN #### [facility] [address] [place] [address] Dr. Kulwant BrennanWBC10.2 103/ulNormal4.0-11.0The [facility] HospitalComment on above:Performed By: #### HSTROPN #### [facility] [address] [place], [place] [address] Dr. Kulwant Lambert 14(COMP METB)on [id number] [Mass/Vol]3.3 g/dL Critically low3.4-5.0The [facility] HospitalComment on above:Performed By: #### TSH, CMP ####[facility] [address] [place] [address] [address]Dr. Kulwant BrennanAlbumin/Globulin [Mass ratio]0.8 {ratio}NormalThe [facility]itan HospitalComment on above:Performed By: #### TSH, CMP ####[facility] [address] [address]Dr. Kulwant BrennanALP [Catalytic activity/Vol]151 U/LCritically jxem01-495Jws [facility] HospitalComment on above: Performed By: #### TSH, CMP ####[facility] [address] [place], [place] [address]Dr. Kulwant BrennanALT [Catalytic activity/Vol]118 U/L Critically sfqf18-24Vfm [facility] HospitalComment on above:Performed By: #### TSH, CMP ####[facility] [address] [address]Dr. Kulwant BrennanAnion gap [Moles/Vol]12.3 mmol/LNormalThe [facility] Comment on above:Performed By: #### TSH, CMP ####[facility] [address] [address]Dr. Kulwant ChangAST [Catalytic activity/Vol]65 U/LCritically cbuq17-86Iwg [facility] Hospitalment on above: Performed By: #### TSH, CMP ####[facility] [address] [place], [place] [address]Dr. Kluwant ChangBilirubin [Mass/Vol]0.5 mg/dLNormal 0.2-1.0The [facility] Hospitalment on above:Performed By: #### TSH, CMP ####[facility] F[address] [place], [place] [address]Dr. Kulwant ChangCalcium [Mass/Vol]5.3 mg/dLCritically low8.5-10.1The [facility] HospitalComment on above:Performed By: #### TSH, CMP ####[facility] [address] [place], [place] [address]Dr. Yilan ChangChloride [Moles/Vol]104 mmol/QWfbuhq35-825Anq [facility] HospitalComment on above:Performed By: #### TSH, CMP ####[facility] [address] [place], [place] [address]Dr. Yilan ChangCO2 [Moles/Vol]26.7 mmol/LNormal 21.0-32.0The [facility] HospitalComment on above:Performed By: #### TSH, CMP ####[facility] [address] [place], [place] [address]Dr. Yilan ChangCreatinine [Mass/Vol]2.08 mg/dLCritically high0.70-1.30The [facility] HospitalComment on above:Performed By: #### TSH, CMP ####[facility] Em[address]hr[address] [place], [place] [address]Dr. Yilan ChangEGFR-AF KPTTWASO67 mL/min/1.71o4Phrtcepmbg low>=60The [facility] HospitalComment on above: Performed By: #### TSH, CMP ####[facility] [address] [place], [place] [address]Dr. Yilan ChangEGFR-NON AF WKYPVRKU82 mL/min/1.73m2 Critically low>=60The [facility] HospitalComment on above:Performed By: #### TSH, CMP ####[facility] Ga[address] [place], [place] [address]Dr. Yilan ChangGlobulin (S) [Mass/Vol]4.1 g/dLNormalThe [facility] HospitalComment on above:Performed By: #### TSH, CMP ####[facility] Tfc[address]ce[address] [place], [place] [address]Dr. Yilan ChangGlucose [Mass/Vol]89 mg/dLNormal 74-106The [facility] HospitalComment on above:Performed By: #### TSH, CMP ####[facility] [address] [place], [place] [address]Dr. Yilan ChangPotassium [Moles/Vol]4.0 mmol/LNormal3.5-5.1The [facility] Comment on above:Performed By: #### TSH, CMP ####[facility] [address] [address]Dr. Kulwant ChangProtein [Mass/Vol]7.4 g/dLNormal6.4-8.2The [facility] HospitalComment on above:Performed By: #### TSH, CMP ####[facility] [address] [address]Dr. Kulwant ChangSodium [Moles/Vol]139 mmol/PNnhrew573-781Zji [facility] HospitalComment on above:Performed By: #### TSH, CMP ####[facility] Ulip[address] [place], [place] [address]Dr. Kulwant ChangUrea nitrogen [Mass/Vol]28.0 mg/dLCritically high7.0-18.0The [facility] HospitalComment on above:Performed By: #### TSH, CMP ####[facility] [address] [place], [place] [address]Dr. Alanalan ChangUrea nitrogen/Creatinine [Mass ratio] 13.5 mg/mgNormalThe [facility] HospitalComment on above:Performed By: #### TSH, CMP ####[facility] [address] [place], [place] [address]Dr. Kulwant ChangTSHon 02-44-9352CXS66.234 uIU/mLCritically high0.358-3.740[facility] - AkronComment on above:Performed By: #### TSH, CMP ####[facility] Jrccn[address] [place], [place] [address]Dr. Kulwant BrennanCult, Bloodon [id number], BloodSpecimen Description .BLOOD Special Requests RT AC 6ML Culture NO GROWTH 5 DAYS Report Status FINAL 01/06/2022NormalSumma Health Wadsworth - Rittman Medical CenterComment on above:Performed By: #### URNA, URTPRT, UMICAO, UEOS, UA #### [facility] [address] [place], [place] [phone] Immigration Patrol Inspector: Ottoniel Rosenthal,Bloodon [id number],BloodSpecimen Description .BLOOD Special Requests LT HAND 6ML Culture NO GROWTH 5 DAYS Report Status FINAL 01/06/2022NormalSumma Health Wadsworth - Rittman Medical CenterComment on above:Performed By: #### URNA, URTPRT, UMICAO, UEOS, UA #### [employer] [place] [address] [phone] Immigration Patrol Inspector: DIOGO Rosenthal SCREEN WITH REFLEXon [id number] ds DNA 5.8NINFLEWISGALE HOSPITAL ALLEGHANYComment on above: Reference Range: <10.0 Negative 10.0-15.0 Equivocal >15.0 Positive ARJUN Antibodies Screen0.3 U/mLNINF - 0.7 U/mLLEWISGALE HOSPITAL ALLEGHANYCompromedica cold[facility] on above: Reference Range: <0.7 Negative 0.7-1.0 Equivocal >1.0 Positive ARJUN Screen includes U1RNP,RNP70,Sm,Ro(SS-A),La(SS-B),CENP,Scl-70,Pippa-1 Nuclear Ab IF (S) [Titer]NegativeNEGATIVEWARREN MEMORIAL HOSPITALANA Screen w/reflexon [id number] ScreenNegativeNormalNEGSumma Health Wadsworth - Rittman Medical CenterComment on above:Performed By: #### URNA, URTPRT, UMICAO, UEOS, UA #### [employer] [place] [phone] Immigration Patrol Inspector: Adriane Rosenthal-dsDNA5.8 IU/mLNormal<10.0Sum[facility] - Rittman Medical CenterComment on above:Result Comment: Reference Range: <10.0 Negative 10.0-15.0 Equivocal >15.0 PositivePerformed By: #### URNA, URTPRT, UMICAO, UEOS, UA #### [employer] [place] [address] [phone] Immigration Patrol Inspector: RAMYA Rosenthal Screen0.3 U/mLNormal<0.7Sum[facility] - Rittman Medical CenterComment on above:Result Comment: Reference Range: <0.7 Negative 0.7-1.0 Equivocal >1.0 Positive ARJUN Screen includes U1RNP,RNP70,Sm,Ro(SS-A),La(SS-B),CENP,Scl-70,Pippa-1Performed By: #### URNA, URTPRT, UMICAO, UEOS, UA #### [employer] [address] [place] [address] Immigration Patrol Inspector: Enmanuel Rosenthalbrandin Metabolic Panelon [id number] gap [Moles/Vol]14 mmol/L9 - 17 mmol/LBON SECOURS Digital TheatreY HEALTHCalcium [Mass/Vol]6.4 mg/dLLow8.6 - 10.4 mg/dLBON SECOURS Digital TheatreY HEALTHChloride [Moles/Vol]108 mmol/L High98 - 107 mmol/LBON SECOURS Digital TheatreY HEALTHCO2 [Moles/Vol]25 mmol/L20 - 31 mmol/LBON SECOURS Digital TheatreY HEALTHCreatinine [Mass/Vol]2.5 mg/dLHigh0.7 - 1.2 mg/dL BON SECTeleDNAY HEALTHGFR Rzceqvju95 mL/rryFov33 - PINF mL/minBON SECOURS Digital TheatreY HEALTHGFR Non- Xesfxdnj90 mL/adaFta41 - PINF mL/minBON SECTeleDNAY HEALTHGFR/1.73 sq M.predicted MDRD (S/P/Bld) [Vol rate/Area]BON SECGLOBALBASED TECHNOLOGIESComment on above:Average GFR for 60-69 years old: 85 mL/min/1.73sq m Chronic Kidney Disease: <60 mL/min/1.73sq m Kidney failure: <15 mL/min/1.73sq m eGFR calculated using average adult body mass. Additional eGFR calculator available at: http://www.[employer]/multiple_crcl_2012.htm Glucose [Mass/Vol]99 mg/dL70 - 99 mg/dLBON SECGLOBALBASED TECHNOLOGIESInterpretation and review of laboratory resultsAbnormalBON SECOURS Digital TheatreY HEALTHPotassium [Moles/Vol]4.6 mmol/L3.7 - 5.3 mmol/LBON PARKWOOD HOSPITALSodium [Moles/Vol] 147 mmol/VBqpd527 - 144 mmol/LBON PARKWOOD HOSPITALUrea nitrogen (BldV) [Mass/Vol]40 mg/dLHigh8 - 23 mg/dLBON PARKWOOD HOSPITALBON PARKWOOD HOSPITALBasic Metabolic Profon 01-05-2022(cont.)NormalSumma Health Wadsworth - Rittman Medical CenterComment on above:Result Comment: Average GFR for 60-69 years old: 85 mL/min/1.73sq m Chronic Kidney Disease: <60 mL/min/1.73sq m Kidney failure: <15 mL/min/1.73sq m eGFR calculated using average adult body mass. Additional eGFR calculator available at: http://www.[employer]/multiple_crcl_2012.htmPerformed By: #### URNA, URTPRT, UMICAO, UEOS, UA #### [employer] [place] [address] Immigration Patrol Inspector: Ronn Arias MDAnivicky gap [Moles/Vol]14 mmol/LNormal9-17Sum[facility] - Rittman Medical CenterComment on above:Performed By: #### URNA, URTPRT, UMICAO, UEOS, UA #### [employer] [address] [place] [address] Immigration Patrol Inspector: RAY Rosenthalalcium [Mass/Vol]6.4 mg/dLLow8.6-10.4Sum[facility] - Rittman Medical CenterComment on above:Performed By: #### URNA, URTPRT, UMICAO, UEOS, UA #### [facility] [address] [place] [address] Immigration Patrol Inspector: RAY Rosenthalhloride [Moles/Vol]108 mmol/GZfxm96-400ZgmraSumma Health Wadsworth - Rittman Medical CenterComment on above:Performed By: #### URNA, URTPRT, UMICAO, UEOS, UA #### [facility] [address] [place] [address] Immigration Patrol Inspector: Ronn Arias MDCO2 [Moles/Vol]25 mmol/SRivkhv30-32FntqsSumma Health Wadsworth - Rittman Medical CenterComment on above:Performed By: #### URNA, URTPRT, UMICAO, UEOS, UA #### [facility] [address] [place] [address] Immigration Patrol Inspector: RAY Rosenthalreatinine [Mass/Vol]2.50 mg/dLHigh0.70-1.20 [facility] Rittman Medical CenterComment on above:Performed By: #### URNA, URTPRT, UMICAO, UEOS, UA #### [facility] [address] [place] [address] Immigration Patrol Inspector: Ronn Arias MDGFR, Amer31 mL/minLow>60Sum[facility] Rittman Medical CenterComment on above:Performed By: #### URNA, URTPRT, UMICAO, UEOS, UA #### [facility] [address] [place] [address] Immigration Patrol Inspector: Ronn Arias MDGFR,non Amer26 mL/minLow>60[facility] Rittman Medical CenterComment on above:Performed By: #### URNA, URTPRT, UMICAO, UEOS, UA #### [facility] [address] [place] [address] Immigration Patrol Inspector: Ronn Arias MDGlucose [Mass/Vol]99 mg/jLJocrvo56-11Azeeq [facility] State HospitalComment on above:Performed By: #### URNA, URTPRT, UMICAO, UEOS, UA #### [facility] [address] [place] [address] Immigration Patrol Inspector: Ronn Arias MDPotassium [Moles/Vol]4.6 mmol/LNormal3.7-5.3 [facility] Ritt[facility] Medical CenterComment on above:Performed By: #### URNA, URTPRT, UMICAO, UEOS, UA #### [facility] [address] [place] [address] Immigration Patrol Inspector: GUILLERMO Rosenthalodium [Moles/Vol]147 mmol/MQwpr276-707DlncdSumma Health Wadsworth - Rittman Medical CenterComment on above:Performed By: #### URNA, URTPRT, UMICAO, UEOS, UA #### [facility] [address] [place] [address] Immigration Patrol Inspector: Ronn Arias MDUrea nitrogen [Mass/Vol]40 mg/dLHigh8-23Sum[facility] Rittman Medical CenterComment on above:Performed By: #### URNA, URTPRT, UMICAO, UEOS, UA #### [facility] [address] [place] [address] Immigration Patrol Inspector: Ronn Arias MDIMMUNOFIXATION SERUM PROFILEon 01-05-2022 Pathologist Cyto stain Nom (Cvx/Vag) [ID]Reviewed by pathologist: Kailee Portillo M.D.[facility] IFX InterpIMMUNOFIXATION IS NEGATIVE FOR MONOCLONAL IMMUNOGLOBULIN.W[facility] MEM[facility]IAL HOSPITALImmunofixation,Bloodon [id number] - Interpret.IMMUNOFIXATION IS NEGATIVE FOR MONOCLONAL IMMUNOGLOBULIN.[facility] Comment on above:Performed By: #### URNA, URTPRT, UMICAO, UEOS, UA #### [facility] [address] [place] [address] Immigration Patrol Inspector: MARQUEZ Rosenthalathologist Review:Reviewed by pathologist: Kailee Portillo M.D.[facility] NorthComment on above: Performed By: #### URNA, URTPRT, UMICAO, UEOS, UA #### [facility] [address] [place] [address] Immigration Patrol Inspector: Ever Rosenthal Metab w/rfx MGon 01-04-2022(cont.)Normal [facility] Rittman Medical CenterComment on above:Result Comment: Average GFR for 60-69 years old: 85 mL/min/1.73sq m Chronic Kidney Disease: <60 mL/min/1.73sq m Kidney failure: <15 mL/min/1.73sq m eGFR calculated using average adult body mass. Additional eGFR calculator available at: http://www.[employer]/multiple_crcl_2012.htmPerformed By: #### URNA, URTPRT, UMICAO, UEOS, UA #### [place] [address] Immigration Patrol Inspector: Ronn Arias MDAnion gap [Moles/Vol]13 mmol/LNormal9-17[facility]itt[facility] Medical CenterComment on above:Performed By: #### URNA, URTPRT, UMICAO, UEOS, UA #### [place] [address] Immigration Patrol Inspector: Ronn Arias MDCalcium [Mass/Vol]6.6 mg/dLLow8.6-10.4Sum[facility] Rittman Medical CenterComment on above:Performed By: #### URNA, URTPRT, UMICAO, UEOS, UA #### [facility] [employer] [address] [place] [address] Immigration Patrol Inspector: Ronn Arias MDChloride [Moles/Vol]107 mmol/YZcspuc00-783VkrxeSumma Health Wadsworth - Rittman Medical CenterComment on above:Performed By: #### URNA, URTPRT, UMICAO, UEOS, UA #### [facility] [employer] [address] [place] [address] Immigration Patrol Inspector: Ronn Arias MDCO2 [Moles/Vol]21 mmol/WVvmwfn92-22HbkrySumma Health Wadsworth - Rittman Medical CenterComment on above:Performed By: #### URNA, URTPRT, UMICAO, UEOS, UA #### [facility] [address] [place] [address] Immigration Patrol Inspector: RAY Rosenthalreatinine [Mass/Vol]3.07 mg/dLHigh0.70-1.20 [facility] Medical CenterComment on above:Performed By: #### URNA, URTPRT, UMICAO, UEOS, UA #### [facility] [address] [place] [address] Immigration Patrol Inspector: Ronn Arias MDGFR, Amer25 mL/minLow>60[facility] Medical CenterComment on above:Performed By: #### URNA, URTPRT, UMICAO, UEOS, UA #### [facility] [address] [place] [address] Immigration Patrol Inspector: Ronn Arias MDGFR,non Amer20 mL/minLow>60[facility] Medical CenterComment on above:Performed By: #### URNA, URTPRT, UMICAO, UEOS, UA #### [facility] [address] [place] [address] Immigration Patrol Inspector: Ronn Arias MDGlucose [Mass/Vol]95 mg/mXPljyrb17-08HxpwlSharp Grossmont HospitalComment on above:Performed By: #### URNA, URTPRT, UMICAO, UEOS, UA #### [facility] [address] [place] [address] Immigration Patrol Inspector: MARQUEZ Rosenthalotassium [Moles/Vol]4.3 mmol/LNormal3.7-5.3 [facility] Medical CenterComment on above:Performed By: #### URNA, URTPRT, UMICAO, UEOS, UA #### [facility] [address] [place] [address] Immigration Patrol Inspector: GUILLERMO Rosenthalodium [Moles/Vol]141 mmol/TVodfdt208-355KlrhoSumma Health Wadsworth - Rittman Medical CenterComment on above:Performed By: #### URNA, URTPRT, UMICAO, UEOS, UA #### [facility] [address] [place] [address] Immigration Patrol Inspector: Ronn Arias MDUrea nitrogen [Mass/Vol]54 mg/dLHigh8-23[facility]itt[facility] Medical CenterComment on above:Performed By: #### URNA, URTPRT, UMICAO, UEOS, UA #### [facility] [address] [place], [place] [phone] Immigration Patrol Inspector: Ronn Arias MDConnecticut Children'S Medical Center Metabolic Panel w/ Reflex to MGon [id number] gap [Moles/Vol]13 mmol/L9 - 17 mmol/LBON SECTeleDNAY HEALTH Calcium [Mass/Vol]6.6 mg/dLLow8.6 - 10.4 mg/dLBON SECOURS MERCY HEALTHChloride [Moles/Vol]107 mmol/L98 - 107 mmol/LBON SECOURS MERCY HEALTHCO2 [Moles/Vol]21 mmol/L20 - 31 mmol/LBON SECOURS Digital TheatreY Boom FinancialCreatinine [Mass/Vol]3.07 mg/dLHigh 0.7 - 1.2 mg/dLBON SECOURS Digital TheatreY HEALTHGFR Fmgbivas90 mL/ivxPmh91 - PINF mL/minBON SECTeleDNAY HEALTHGFR Non- Rtubzjzu16 mL/dhrKts25 - PINF mL/minBON SECDrop 'til you Shop MERCY HEALTHGFR/1.73 sq M.predicted MDRD (S/P/Bld) [Vol rate/Area]BON SECGLOBALBASED TECHNOLOGIESComment on above:Average GFR for 60-69 years old: 85 mL/min/1.73sq m Chronic Kidney Disease: <60 mL/min/1.73sq m Kidney failure: <15 mL/min/1.73sq m eGFR calculated using average adult body mass. Additional eGFR calculator available at: http://www.[employer]/multiple_crcl_2012.htm Glucose [Mass/Vol]95 mg/dL70 - 99 mg/dLBON SECTeleDNAY HEALTHInterpretation and review of laboratory resultsAbnormalBON PARKWOOD HOSPITALPotassium [Moles/Vol]4.3 mmol/L3.7 - 5.3 mmol/LBON PARKWOOD HOSPITALSodium [Moles/Vol] 141 mmol/L135 - 144 mmol/LBON PARKWOOD HOSPITALUrea nitrogen (BldV) [Mass/Vol]54 mg/dLHigh8 - 23 mg/dLBON SECKETTERING HEALTH MAIN CAMPUSBON PARKWOOD HOSPITALCBC with Auto Differentialon [id number] Eos #0.19BON PARKWOOD HOSPITALAbsolute Immature Granulocyte0.09BON PARKWOOD HOSPITALAbsolute Lymph # 1.34BON PARKWOOD HOSPITALAbsolute Tucker #1.01BON PARKWOOD HOSPITALBasophils AbsoluteBON PARKWOOD HOSPITALBasophils/100 WBC (Bld)0 %0 - 2 %[facility] ALLEGHANYEosinophils/100 WBC (Bld)2 %1 - 4 %[facility] Hematocrit (Bld) [Volume fraction]28.4 %Low40.7 - 50.3 %[facility] Hemoglobin (Bld) [Mass/Vol]9.3 g/dLLow13 - 17 g/dLBON PARKWOOD HOSPITAL Immature granulocytes/100 WBC (Bld)1 %Hgzm1WQLLEWISGALE HOSPITAL ALLEGHANY Interpretation and review of laboratory resultsAbnormalLEWISGALE HOSPITAL ALLEGHANY Lymphocytes/100 WBC (Bld)11 %Low24 - 43 %[facility]ITALH (RBC) [Entitic mass]27.4 pg25.2 - 33.5 pgWELLMONT LONESOME PINE MT. VIEW HOSPITALHC (RBC) [Mass/Vol] 32.7 g/dL28.4 - 34.8 g/dLBON MERCY MEMORIAL HOSPITALV (RBC) [Entitic vol]83.8 fL 82.6 - 102.9 fLLEWISGALE HOSPITAL ALLEGHANYMonocytes/100 WBC (Bld)8 %3 - 12 %[facility] ALLEGHANYNRBC Automated0.00.0 per 100 WBCLEWISGALE HOSPITAL ALLEGHANY Platelet distribution width (Bld) [Ratio]14.3 %11.8 - 14.4 %B[facility] MERCY HEALTHPlatelet mean volume (Bld) [Entitic vol]10.6 fL8.1 - 13.5 fLBON SECPRAIRIEVILLE FAMILY HOSPITAL HEALTHPlatelets (Bld) [#/Vol]177 10*3/uLBON [facility] HEALTHRBC (Bld) [#/Vol]3.39 10*6/uLLow4.21 - 5.77 m/uLBON PARKWOOD HOSPITALSegmented neutrophils/100 WBC (Bld)78 %High36 - 65 %BON SECPRAIRIEVILLE FAMILY HOSPITAL HEALTHSegs Absolute 9.54HighBON PARKWOOD HOSPITALWBC (Bld) [#/Vol]12.2 10*3/uLHighBON D[facility]GL[facility] COUNTY MEMORIAL HOSPITALCBC with Diffon [id number]. Basophil<0.03 Normal0.00-0.20[facility]ittman Medical CenterComment on above:Performed By: #### URNA, URTPRT, UMICAO, UEOS, UA #### [employer] [address] [place] [address] Immigration Patrol Inspector: Mak Rosenthal.Imm.Granulocyte0.09 k/uLNormal0.00-0.30[facility]itt[facility] Medical CenterComment on above:Performed By: #### URNA, URTPRT, UMICAO, UEOS, UA #### [employer] [address] [place] [address] Immigration Patrol Inspector: Mak Rosenthal.Neutrophil (Seg)9.54 k/uLHigh1.50-8.10[facility] Medical CenterComment on above:Performed By: #### URNA, URTPRT, UMICAO, UEOS, UA #### [employer] [facility] [place] [address] Immigration Patrol Inspector: Ronn Arias MDBasophils/100 WBC (Bld)0 %Normal0-2MercChildren's Hospital and Health CenterComment on above:Performed By: #### URNA, URTPRT, UMICAO, UEOS, UA #### [employer] [address] [place] [address] Immigration Patrol Inspector: PRANAY Rosenthalosinophils (Bld) [#/Vol]0.19 10*3/uLNormal 0.00-0.44[facility]itt[facility] Medical CenterComment on above:Performed By: #### URNA, URTPRT, UMICAO, UEOS, UA #### [facility] [address] [place] [address] Immigration Patrol Inspector: PRANAY Rosenthalosinophils/100 WBC (Bld)2 %Normal1-4[facility] Ritt[facility] Medical CenterComment on above:Performed By: #### URNA, URTPRT, UMICAO, UEOS, UA #### [facility] [address] [place] [address] Immigration Patrol Inspector: Mt Rosenthalmature granulocytes/100 WBC (Bld)1 %Tkgs6RucxkSumma Health Wadsworth - Rittman Medical CenterComment on above:Performed By: #### URNA, URTPRT, UMICAO, UEOS, UA #### [facility] [address] [place] [address] Immigration Patrol Inspector: Shelia Rosenthalhocytes (Bld) [#/Vol]1.34 10*3/uLNormal 1.10-3.70[facility]itt[facility] Medical CenterComment on above:Performed By: #### URNA, URTPRT, UMICAO, UEOS, UA #### [facility] [address] [place] [address] Immigration Patrol Inspector: Arias Rosenthalmphocytes/100 WBC (Bld)11 %Htt59-46NciveSumma Health Wadsworth - Rittman Medical CenterComment on above:Performed By: #### URNA, URTPRT, UMICAO, UEOS, UA #### [facility] [address] [place] [address] Immigration Patrol Inspector: FRANKIE Rosenthalonocytes (Bld) [#/Vol]1.01 10*3/uLNormal 0.10-1.20[facility]itt[facility] Medical CenterComment on above:Performed By: #### URNA, URTPRT, UMICAO, UEOS, UA #### [facility] [address] [place] [address] Immigration Patrol Inspector: FRANKIE Rosenthalonocytes/100 WBC (Bld)8 %Normal3-12[facility] - Rittman Medical CenterComment on above:Performed By: #### URNA, URTPRT, UMICAO, UEOS, UA #### [facility] [address] [place] [address] Immigration Patrol Inspector: Ronn Arias MDNeutrophil (Seg)78 %Hara33-24RbnljSumma Health Wadsworth - Rittman Medical CenterComment on above:Performed By: #### URNA, URTPRT, UMICAO, UEOS, UA #### [facility] [address] [place] [address] Immigration Patrol Inspector: Ronn Arias MDErythrocyte distribution width (RBC) [Ratio]14.3 %Ldndpa23.8-14.4[facility] Rittman Medical CenterComment on above:Performed By: #### URNA, URTPRT, UMICAO, UEOS, UA #### [facility] [address] [place] [address] Immigration Patrol Inspector: Ronn Arias MDHematocrit (Bld) [Volume fraction]28.4 %Low 40.7-50.3[facility]ton State HospitalComment on above:Performed By: #### URNA, URTPRT, UMICAO, UEOS, UA #### [facility] [address] [place] [address] Immigration Patrol Inspector: Ronn Arias MDHemoglobin (Bld) [Mass/Vol]9.3 g/dLLow13.0-17.0 [facility] Rittman Medical CenterComment on above:Performed By: #### URNA, URTPRT, UMICAO, UEOS, UA #### [facility] [address] [place] [address] Immigration Patrol Inspector: FRANKIE RosenthalCH (RBC) [Entitic mass]27.4 jbNqkiup29.2-33.5 [facility] Rittman Medical CenterComment on above:Performed By: #### URNA, URTPRT, UMICAO, UEOS, UA #### [facility] [address] [place] [address] Immigration Patrol Inspector: WILBERT RosenthalC (RBC) [Mass/Vol]32.7 g/bFBidhsj00.4-34.8 [facility] Rittman Medical CenterComment on above:Performed By: #### URNA, URTPRT, UMICAO, UEOS, UA #### [facility] [employer] [address] [place] [address] Immigration Patrol Inspector: SHARITA Rosenthal (RBC) [Entitic vol]83.8 nJHfumru43.6-102.9 [facility] Ritt[facility] Medical CenterComment on above:Performed By: #### URNA, URTPRT, UMICAO, UEOS, UA #### [facility] [employer] [address] [place] [address] Immigration Patrol Inspector: oRnn Arias MDNRBC Automated0.0 per 100 WBCNormal0.0[facility] Rittman Medical CenterComment on above:Performed By: #### URNA, URTPRT, UMICAO, UEOS, UA #### [facility] [employer] [address] [place] [address] Immigration Patrol Inspector: Kaila Rosenthaltelet mean volume (Bld) [Entitic vol]10.6 fL Normal8.1-13.5[facility] Rittman Medical CenterComment on above:Performed By: #### URNA, URTPRT, UMICAO, UEOS, UA #### [facility] [address] [place] [address] Immigration Patrol Inspector: Leslie Rosenthal (Bld) [#/Vol]177 10*3/wYYunkik268-224 [facility]itt[facility] Medical CenterComment on above:Performed By: #### URNA, URTPRT, UMICAO, UEOS, UA #### [facility] [address] [place] [address] Immigration Patrol Inspector: STAN Rosenthal (Bld) [#/Vol]3.39 10*6/uLLow4.21-5.77[facility] Rittman Medical CenterComment on above:Performed By: #### URNA, URTPRT, UMICAO, UEOS, UA #### [facility] [address] [place] [address] Immigration Patrol Inspector: RAISA Rosenthal (d) [#/Vol]12.2 10*3/uLHigh3.5-11.3MSharp Grossmont HospitalComment on above:Performed By: #### URNA, URTPRT, UMICAO, UEOS, UA #### [facility] [address] [place] [address] Immigration Patrol Inspector: Ever Rosenthal Metab w/rfx MGon 01-03-2022(cont.)Normal [facility] Rittman Medical CenterComment on above:Result Comment: Average GFR for 60-69 years old: 85 mL/min/1.73sq m Chronic Kidney Disease: <60 mL/min/1.73sq m Kidney failure: <15 mL/min/1.73sq m eGFR calculated using average adult body mass. Additional eGFR calculator available at: http://www.[employer].LaunchCyte/multiple_crcl_2012.htmPerformed By: #### LACDS #### [facility] [address] [place] [address] Immigration Patrol Inspector: Ronn Madoff, MDAnion gap [Moles/Vol]16 mmol/LNormal9-17[facility] Rittman Medical CenterComment on above:Performed By: #### LACDS #### [facility] [address] [place] [address] Immigration Patrol Inspector: Ronn Arias MDCalcium [Mass/Vol]6.9 mg/dLLow8.6-10.4[facility] Rittman Medical CenterComment on above:Performed By: #### LACDS #### [facility] [address] [place] [address] Immigration Patrol Inspector: Ronn Arias MDChloride [Moles/Vol]106 mmol/MSfgrky73-681EvlitSumma Health Wadsworth - Rittman Medical CenterComment on above:Performed By: #### LACDS #### [address] [address] Immigration Patrol Inspector: Ronn Arias MDCO2 [Moles/Vol]16 mmol/RLsc00-25YxfxwSumma Health Wadsworth - Rittman Medical CenterComment on above:Performed By: #### LACDS #### [address] [address] Immigration Patrol Inspector: RAY Rosenthalreatinine [Mass/Vol]3.44 mg/dLHigh0.70-1.20 [facility]itt[facility] Medical CenterComment on above:Performed By: #### LACDS #### [address] [address] Immigration Patrol Inspector: MERCEDES Rosenthal, Amer22 mL/minLow>60[facility] Rittman Medical CenterComment on above:Performed By: #### LACDS #### [facility] [employer] [address] [place] [address] Immigration Patrol Inspector: MERCEDES Rosenthal,non Amer18 mL/minLow>60[facility]itt[facility] Medical CenterComment on above:Performed By: #### LACDS #### [facility] [employer] [address] [place] [address] Immigration Patrol Inspector: Ronn Arias MDGlucose [Mass/Vol]138 mg/pZUawn83-10QrjtgSharp Grossmont HospitalComment on above:Performed By: #### LACDS #### [facility] [address] [place] [address] Immigration Patrol Inspector: MARQUEZ Rosenthalotassium [Moles/Vol]4.8 mmol/LNormal3.7-5.3 [facility]itt[facility] Medical CenterComment on above:Performed By: #### LACDS #### [facility] [address] [place] [address] Immigration Patrol Inspector: GUILLERMO Rosenthalodium [Moles/Vol]138 mmol/TMdsijb083-466EvhvsSumma Health Wadsworth - Rittman Medical CenterComment on above:Performed By: #### LACDS #### [facility] [address] [place] [address] Immigration Patrol Inspector: Ronn Arias MDUrea nitrogen [Mass/Vol]53 mg/dLHigh8-23[facility]itt[facility] Medical CenterComment on above:Performed By: #### LACDS #### [facility] [address] [place] [address] Immigration Patrol Inspector: Ronn Arias MDBasi Metabolic Panel w/ Reflex to MGon 76-89-4279Oxwff gap [Moles/Vol]16 mmol/L9 - 17 mmol/LBON [facility]ITALY HEALTH Calcium [Mass/Vol]6.9 mg/dLLow8.6 - 10.4 mg/dLBON SECOURS MERCY HEALTHChloride [Moles/Vol]106 mmol/L98 - 107 mmol/LBON [facility]OURS MERCY HEALTHCO2 [Moles/Vol]16 mmol/LLow20 - 31 mmol/LBON [facility] HEALTHCreatinine [Mass/Vol]3.44 mg/dL High0.7 - 1.2 mg/dLBON [facility]OURS MERCY HEALTHGFR Ancrnbod98 mL/tylDqf32 - PINF mL/minBON [facility]OURS MERCY HEALTHGFR Non- Ywzatucw22 mL/ykbDqo30 - PINF mL/minBON XeccedGFR/1.73 sq M.predicted MDRD (S/P/Bld) [Vol rate/Area][facility] Stalkthis [facility]ICAL CENTERComment on above:Average GFR for 60-69 years old: 85 mL/min/1.73sq m Chronic Kidney Disease: <60 mL/min/1.73sq m Kidney failure: <15 mL/min/1.73sq m eGFR calculated using average adult body mass. Additional eGFR calculator available at: http://www.[employer]/multiple_crcl_2012.htm Glucose [Mass/Vol]138 mg/eDKoxx62 - 99 mg/dLBON BAN[facility] OCOTILLO MEDICAL CENTERGLOBALBASED TECHNOLOGIESPotassium [Moles/Vol]4.8 mmol/L3.7 - 5.3 mmol/LBON EL [facility]EN[facility] REG[facility] MEDICAL CENTERSMB Suite [facility] MEDICAL CENTERSodium [Moles/Vol] 138 mmol/L135 - 144 mmol/LBON PARKWOOD HOSPITALUrea nitrogen (BldV) [Mass/Vol]53 mg/dLHigh8 - 23 mg/dLBON [facility] OCOTILLO MEDICAL CENTERDrop 'til you Shop [facility] ANDERSON HOSPITALSMB Suite [id number] [id number] mg/hBJnmtbh08-721YbywxSumma Health Wadsworth - Rittman Medical CenterComment on above:Performed By: #### URNA, URTPRT, UMICAO, UEOS, UA #### [facility] [address] [place] [id number] Immigration Patrol Inspector: Ronn Arias [facility] COMPLEMENTon 99-43-5939Uvbqzawzkw C3108 mg/dL 90 - 180 mg/dLBON PARKWOOD HOSPITALC4on 53-74-6618V808 mg/mDLaclss18-69OlmuzSumma Health Wadsworth - Rittman Medical CenterComment on above:Performed By: #### URNA, URTPRT, UMICAO, UEOS, UA #### [employer] [address] [place] [address] Immigration Patrol Inspector: Ronn Arias [facility] COMPLEMENTon 75-67-0817Fyhrvrakdu C421 mg/dL 10 - 40 mg/dLBON EL CEN[facility] REG[facility] MEDICAL CENTERSMB Suite [facility] VA MEDICAL CENTERCBC with Auto Differentialon 01-03-2022 Absolute Eos #BON SECKETTERING HEALTH MAIN CAMPUSAbsolute Immature Granulocyte0.09B[facility] HOSPITALY HEALTHAbsolute Lymph #0.76LowBON SECOURS MER[facility] HEALTH ANDERSON HOSPITALY HEALTHAbsolute Tucker #0.39[facility] HEALTHBasophils AbsoluteBON [facility] Basophils/100 WBC (Bld)0 %0 - 2 %[facility] MARYMOUNT HOSPITALEosinophils/100 WBC (Bld)0 %Low1 - 4 %[facility] ALLEGHANYHematocrit (Bld) [Volume fraction]31.4 %Low40.7 - 50.3 %[facility] ALLEGHANYHemoglobin (Bld) [Mass/Vol]10.3 g/dLLow 13 - 17 g/dLBON SECKETTERING HEALTH MAIN CAMPUSImmature granulocytes/100 WBC (Bld)1 %High0 [facility] HEALTHInterpretation and review of laboratory resultsAbnormal B[facility]NEWOOD HOSPITALAMANDA MARYMOUNT HOSPITALLymphocytes/100 WBC (Bld)6 %Low24 - 43 %[facility]ITALH (RBC) [Entitic mass]27.5 pg25.2 - 33.5 pgBON SECNEWARK HOSPITALHC (RBC) [Mass/Vol]32.8 g/dL28.4 - 34.8 g/dLBON SECNEWARK HOSPITALV (RBC) [Entitic vol]83.7 fL82.6 - 102.9 fLLEWISGALE HOSPITAL ALLEGHANYMonocytes/100 WBC (Bld)3 %3 - 12 %[facility] ALLEGHANYNRBC Automated0.00.0 per 100 WBCLIFEPOINT HEALTH HEALTHPlatelet distribution width (Bld) [Ratio]14.5 %High11.8 - 14.4 %[facility] SECPRAIRIEV[facility]LE [facility] HEALTHPlatelet mean volume (Bld) [Entitic vol]10.9 fL8.1 - 13.5 fLBANNER IRONWOOD MEDICAL CENTER SECOURS [facility] HOSPITALY HEALTHPlatelets (Bld) [#/Vol]170 10*3/uLBON SECPRAIRIEVILLE FAMILY HOSPITAL HEALTHRBC (Bld) [#/Vol]3.75 10*6/uLLow4.21 - 5.77 m/uLBON [facility] HEALTHRBC (Bld) [#/Vol]ANISOCYTOSIS PRESENTBON PARKWOOD HOSPITALSegmented neutrophils/100 WBC (Bld)90 %High36 - 65 %BON PARKWOOD HOSPITALSegs Absolute 11.26HighBON PARKWOOD HOSPITALWBC (Bld) [#/Vol]12.5 10*3/uLHighBON D[facility]GL[facility] COUNTY MEMORIAL HOSPITALCBC with Diffon 18-90-0029Sdf. Basophil<0.03 Normal0.00-0.20[facility]itt[facility] Medical CenterComment on above:Performed By: #### MAYCOL #### [address] [address] Immigration Patrol Inspector: Mak Rosenthal. Eosinophil<0.93Fpwqzv1.00-0.44[facility] Rittman Medical CenterComment on above:Performed By: #### MAYCOL #### [place] [address] Immigration Patrol Inspector: MDAbs. GaloImm.Granulocyte0.09 k/uLNormal0.00-0.30[facility]itt[facility] Medical CenterComment on above:Performed By: #### MAYCOL #### [address] [address] Immigration Patrol Inspector: MDAbs. GaloNeutrophil (Seg)11.26 k/uLHigh1.50-8.10[facility]itt[facility] Medical CenterComment on above:Performed By: #### MAYCOL #### [place] [address] Immigration Patrol Inspector: Ronn Arias MDBasophils/100 WBC (Bld)0 %Normal0-2MercChildren's Hospital and Health CenterComment on above:Performed By: #### MAYCOL #### [address] [address] Immigration Patrol Inspector: Ronn Arias MDEosinophils/100 WBC (Bld)0 %Low1-4[facility] Ritt[facility] Medical CenterComment on above:Performed By: #### MAYCOL #### [address] [address] Immigration Patrol Inspector: Rnon Arias MDErythrocyte distribution width (RBC) [Ratio]14.5 %High11.8-14.4[facility]itt[facility] Medical CenterComment on above:Performed By: #### LACDS #### [address] [address] Immigration Patrol Inspector: Ronn Arias MDHematocrit (Bld) [Volume fraction]31.4 %Low 40.7-50.3Mer[facility] Patton State HospitalComment on above:Performed By: #### LACDS #### [address] [address] Immigration Patrol Inspector: Ronn Arias MDHemoglobin (Bld) [Mass/Vol]10.3 g/dLLow13.0-17.0 [facility] Medical CenterComment on above:Performed By: #### LACDS #### [address] [address] Immigration Patrol Inspector: Ronn Arias MDImmature granulocytes/100 WBC (Bld)1 %Lumf6IosmqSumma Health Wadsworth - Rittman Medical CenterComment on above:Performed By: #### LACDS #### [address] [address] Immigration Patrol Inspector: Ronn Arias MDLymphocytes (Bld) [#/Vol]0.76 10*3/uLLow 1.10-3.70[facility]itt[facility] Medical CenterComment on above:Performed By: #### LACDS #### [address] [address] Immigration Patrol Inspector: Arias Rosenthalmphocytes/100 WBC (Bld)6 %Ego53-18EscbjSumma Health Wadsworth - Rittman Medical CenterComment on above:Performed By: #### LACDS #### [address] [address] Immigration Patrol Inspector: FRANKIE RosenthalCH (RBC) [Entitic mass]27.5 jiKqmeuc33.2-33.5 [facility] CenterComment on above:Performed By: #### MAYCOL #### [address] [address] Immigration Patrol Inspector: FRANKIE RosenthalCHC (RBC) [Mass/Vol]32.8 g/zBCumcrb75.4-34.8 [facility] CenterComment on above:Performed By: #### MAYCOL #### [address] [address] Immigration Patrol Inspector: FRANKIE RosenthalCV (RBC) [Entitic vol]83.7 zMJszzsj06.6-102.9 [facility] CenterComment on above:Performed By: #### MAYCOL #### [address] [address] Immigration Patrol Inspector: FRANKIE Rosenthalonocytes (Bld) [#/Vol]0.39 10*3/uLNormal 0.10-1.20[facility] Medical CenterComment on above:Performed By: #### MAYCOL #### [address] [address] Immigration Patrol Inspector: FRANKIE Rosenthalonocytes/100 WBC (Bld)3 %Normal3-12[facility]itt[facility] Medical CenterComment on above:Performed By: #### LACDS #### [address] [address] Immigration Patrol Inspector: Nereyda Rosenthalutrophil (Seg)90 %Yfpj13-83RxztjSumma Health Wadsworth - Rittman Medical CenterComment on above:Performed By: #### LACDS #### [address] [address] Immigration Patrol Inspector: Ronn Arias MDNRBC Automated0.0 per 100 WBCNormal0.0[facility]itt[facility] Medical CenterComment on above:Performed By: #### LACDS #### [address] [address] Immigration Patrol Inspector: Kaila Rosenthaltemarcelo mean volume (Bld) [Entitic vol]10.9 fL Normal8.1-13.5[facility]itt[facility] Medical CenterComment on above:Performed By: #### LACDS #### [address] [address] Immigration Patrol Inspector: MARQUEZ Rosenthallatelets (Bld) [#/Vol]170 10*3/rXWafiqv319-953 [facility] CenterComment on above:Performed By: #### MAYCOL #### [address] [address] Immigration Patrol Inspector: CHASIDY RosenthalBC (Bld) [#/Vol]3.75 10*6/uLLow4.21-5.77[facility] Medical CenterComment on above:Performed By: #### MAYCOL #### [address] [address] Immigration Patrol Inspector: STAN Rosenthal morphology finding Nom (Bld)ANISOCYTOSIS PRESENTNormalSumma Health Wadsworth - Rittman Medical CenterComment on above:Performed By: #### LACJONES #### [address] [address] Immigration Patrol Inspector: LAQUITA RosenthalBC (Bld) [#/Vol]12.5 10*3/uLHigh3.5-11.3MSharp Grossmont HospitalComment on above:Performed By: #### LACDS #### [address] [address] Immigration Patrol Inspector: Ronn Arias MDEOSINOPHILS, URINEon 59-98-0147Yppscgpyfm, Ur NONE SEENNONE SEENBON [facility] HEALTHBON PARKWOOD HOSPITALEosinophils, Urineon 09-12-3885Zvixbrvimir, UrineNONE SEENNormalNSNMercy Patton State HospitalComment on above:Performed By: #### URNA, URTPRT, UMICAO, UEOS, UA #### [facility] [address] [place], [place] [phone] Immigration Patrol Inspector: Konrad Rosenthal [place] + Lambdaon 90-26-9457W[place] Lt Chains4.01 mg/dLHigh0.37-1.94[facility] Medical CenterComment on above: Performed By: #### URNA, URTPRT, UMICAO, UEOS, UA #### [facility] [address] [place], [place] [phone] Immigration Patrol Inspector: Konrad Rosenthal [place]/Lambda Rat1.48Jcsj6.26-1.65[facility] Medical CenterComment on above:Performed By: #### URNA, URTPRT, UMICAO, UEOS, UA #### [facility] [address] [place], [place] [phone] Immigration Patrol Inspector: Konrad Rosenthal Lambda Lt Chains2.07 mg/dLNormal0.57-2.63 [facility] CenterComment on above:Performed By: #### URNA, URTPRT, UMICAO, UEOS, UA #### [facility] [address] [place] [phone] Immigration Patrol Inspector: Ronn Arias MDHepatic Function Panelon 27-41-4309Hzeiksc [Mass/Vol]3.2 g/dLLow3.5 - 5.2 g/dLBON PARKWOOD HOSPITALAlbumin/Globulin [Mass ratio]0.9 {ratio}Low1 - 2.5BON PARKWOOD HOSPITALALP (Bld) [Catalytic activity/Vol]104 U/L40 - 129 U/LBON [facility] HEALTHALT [Catalytic activity/Vol]94 U/LHigh5 - 41 U/LBON PARKWOOD HOSPITALAST [Catalytic activity/Vol]49 U/LHighNINF - 40 U/LBON [facility]ARKWOOD HOSPITALBilirubin [Mass/Vol] 1.1 mg/dL0.3 - 1.2 mg/dLBON PARKWOOD HOSPITALBilirubin, Indirect0.5 mg/dL0 - 1 mg/dLBON PARKWOOD HOSPITALBilirubin.indirect [Mass/Vol]0.6 mg/dLHighNINF - 0.31 mg/dLBON PARKWOOD HOSPITALFree PSA/Total PSA [Mass fraction]6.7 g/dL6.4 - 8.3 g/dLBON PARKWOOD HOSPITALKappa/Lambda Quantitative Free Light Chains, Serumon 42-90-0900Isuj [place]/Lambda Ratio1.28Nxrr9.26 - 1.65[facility] ALLEGHANYInterpretation and review of laboratory resultsAbnormalBON PARKWOOD HOSPITALKappa Free Light Chains QNT4.01 mg/dLHigh0.37 - 1.94 mg/dLBON PARKWOOD HOSPITALLambda Free Light Chains QNT2.07 mg/dL0.57 - 2.63 mg/dLBON DOUGLAS COUNTY MEMORIAL HOSPITALLactate, Sepsison 76-33-4687Wcmmee Acid,Sep Wbld1.8 mmol/LNormal0.5-1.9[facility] Medical CenterComment on above: Performed By: #### LACDS #### [employer] [address] [place] [address] Immigration Patrol Inspector: Ronn Arias MDLactic Acid, Sepsis, Whole Blood1.8 mmol/L0.5 - 1.9 mmol/LBON DOUGLAS COUNTY MEMORIAL HOSPITALLactic Acid,Sep Wbld 1.4 mmol/LNormal0.5-1.9[facility] Medical CenterComment on above: Performed By: #### URNA, URTPRT, UMICAO, UEOS, UA #### [employer] [address] [place] [address] Immigration Patrol Inspector: Ronn Arias MDLactic Acid, Sepsis, Whole Blood1.4 mmol/L0.5 - 1.9 mmol/LBON DOUGLAS COUNTY MEMORIAL HOSPITALLactic Acid,Sep Wbld 1.5 mmol/LNormal0.5-1.9[facility] Medical CenterComment on above: Performed By: #### LACDS #### [facility] [address] [place] [address] Immigration Patrol Inspector: Frances Rosenthalctic Acid, Sepsis, Whole Blood1.5 mmol/L0.5 - 1.9 mmol/LBON DOUGLAS COUNTY MEMORIAL HOSPITALLactic Acid,Sep Wbld 1.2 mmol/LNormal0.5-1.9[facility] Medical CenterComment on above: Performed By: #### LACDS #### [facility] [employer] [address] [place] [address] Immigration Patrol Inspector: Ronn Arias MDLipaseon 76-07-0641Gcswel [Catalytic activity/Vol]250 U/FElna43-49JmbcySumma Health Wadsworth - Rittman Medical CenterComment on above: Performed By: #### MAYCOL #### [facility] [employer] [address] [place] [address] Immigration Patrol Inspector: Ronn Arias MDLipase [Catalytic activity/Vol]250 U/LHigh13 - 60 U/LBON PARKWOOD HOSPITALLiver Profileon 19-26-4068Zapdxrw [Mass/Vol]3.2 g/dLLow3.5-5.2Mpremier healthy Patton State HospitalComment on above:Performed By: #### LACDS #### [facility] [address] [place] [address] Immigration Patrol Inspector: Ronn Arias MDAlbumin/Glob Ratio0.9Low1.0-2.5[facility] Medical CenterComment on above:Performed By: #### LACDS #### [facility] [address] [place] [address] Immigration Patrol Inspector: Ronn Madoff, MDAlkaline Wjiz923 U/HTrhlmu24-641UspwtSumma Health Wadsworth - Rittman Medical CenterComment on above:Performed By: #### MAYCOL #### [address] [address] Immigration Patrol Inspector: Ronn Arias MDALT [Catalytic activity/Vol]94 U/LHigh5-41[facility] Medical CenterComment on above:Performed By: #### LACJONES #### [place] [address] Immigration Patrol Inspector: Ronn Arias MDAST [Catalytic activity/Vol]49 U/LHigh<40[facility] Medical CenterComment on above:Performed By: #### MAYCOL #### [place] [address] Immigration Patrol Inspector: Ronn Arias MDBilirubin [Mass/Vol]1.1 mg/dLNormal0.3-1.2MSharp Grossmont HospitalComment on above:Performed By: #### MAYCOL #### [place] [address] Immigration Patrol Inspector: Ronn Arias MDBilirubin, Indirect0.5 mg/dLNormal0.00-1.00[facility]itt[facility] Medical CenterComment on above:Performed By: #### MAYCOL #### [place] [address] Immigration Patrol Inspector: Pamela Rosenthalirubin.indirect [Mass/Vol]0.6 mg/dLHigh<0.31 [facility] Medical CenterComment on above:Performed By: #### LACJONES #### [place] [address] Immigration Patrol Inspector: Ronn Arias MDProtein [Mass/Vol]6.7 g/dLNormal6.4-8.3MSharp Grossmont HospitalComment on above:Performed By: #### MAYCOL #### [address] [place] [address] Immigration Patrol Inspector: FRANKIE Rosenthalicroscopic Urinalysison 69-97-7033Brhbk UA2 TO 5 HYALINE Reference range defined for non-centrifuged specimen.[facility] ALLEGHANYEpithelial Cells UANoneBON PARKWOOD HOSPITALRBC, UA2 TO 5BON PARKWOOD HOSPITALComment on above:Reference range defined for non-centrifuged specimen.WBC, UA2 TO 5BON [facility] COUNTY MEMORIAL HOSPITALNo Panel Informationon [id number] [facility] Interpretation and review of laboratory resultsAbnormalRIVERSIDE BEHAVIORAL HEALTH CENTERProcalcitoninon 19-95-2637Gazwfwkaiiwfa28.48 ng/mLHigh <0.09Mer[facility] Patton State HospitalComment on above:Result Comment: Suspected Sepsis: <0.50 ng/mL Low likelihood [...] entered into the Change in Procalcitonin Calculator (www.wbofno-lfg-eolyynaarn.com) to determine the patient's Mortality Risk Prognosis In healthy neonates, plasma Procalcitonin (PCT) concentrations increase gradually after , reaching peak values at about 24 hours of age then decrease to normal values below 0.5 ng/mL by 48-72 hours of age.Performed By: #### LACDS #### [employer] [address] [place] [address] Immigration Patrol Inspector: Ronn Arias MDInterpretation and review of laboratory results [facility] Medical CenterProcalcitonin16.48 ng/mLHighNINF - 0.09 ng/mLBON PARKWOOD HOSPITALComment on above: Suspected Sepsis: <0.50 ng/mL Low likelihood of sepsis. 0.50-2.00 ng/mL Increased likelihood of sepsis. Antibiotics encouraged. >2.00 ng/mL High risk of sepsis/shock. Antibiotics strongly encouraged. Suspected Lower Resp Tract Infections: <0.24 ng/mL Low likelihood of bacterial infection. >0.24 ng/mL Increased likelihood of bacterial infection. Antibiotics encouraged. With successful antibiotic therapy, PCT levels should decrease rapidly. (Half- life of 24 to 36 hours.) Procalcitonin values from samples collected within the first 6 hours of systemic infection may still be low. Retesting may be indicated. Values from day 1 and day 4 can be entered into the Change in Procalcitonin Calculator (www.jdmckr-nhg-tmjqqbnwjz.[employer]) to determine the patient's Mortality Risk Prognosis In healthy neonates, plasma Procalcitonin (PCT) concentrations increase gradually after , reaching peak values at about 24 hours of age then decrease to normal values below 0.5 ng/mL by 48-72 hours of age. [facility] CoworkingON HEALTHProtein / creatinine ratio, urineon 01-03-2022 Creatinine, Ur84.8 mg/dL39 - 259 mg/dLBON BANNER OCOTILLO MEDICAL CENTERSpot Mobile International HEALTHProtein (U) [Mass/Vol]16 mg/dLBON [facility] CoworkingON [facility] MEDICAL CENTERComment on above:No normal range established.Urine Total Protein Creatinine Ratio0.190 - 0.2[facility]OTILLO MEDICAL CENTERGLOBALBASED TECHNOLOGIESProtein,Tot,Homer Uron [id number] [Mass/Vol]84.8 mg/dLNormal 39.0-259.0MerLoma Linda University Medical Center-EastComment on above:Performed By: #### URNA, URTPRT, UMICAO, UEOS, UA #### [address] [place] [address] Immigration Patrol Inspector: Mendy Rosenthal Prot. Conc.16 mg/dLNormalSumma Health Wadsworth - Rittman Medical CenterComment on above:Result Comment: No normal range established. Performed By: #### URNA, URTPRT, UMICAO, UEOS, UA #### [address] [place], [place] [id number] Immigration Patrol Inspector: Ronn Arias MDTP/Cre Ratio0.74Ylqadr0.00-0.20[facility]ton State HospitalComment on above:Performed By: #### URNA, URTPRT, UMICAO, UEOS, UA #### [employer] [facility]2 [place], [place] [id number] Immigration Patrol Inspector: GUILLERMO RosenthalODIUM, URINE, RANDOMon [id number] (U) [Moles/Vol]83 mmol/LBON PARKWOOD HOSPITALComment on above:No normal range established.SURGICAL PATHOLOGY REPORTon [id number] Pathology Report-- Diagnosis -- Gallbladder: - Chronic cholecystitis. - [...] two black choleliths, each measuring 0.5 cm. 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 tm Microscopic Description Microscopic examination performed. SURGICAL PATHOLOGY CONSULTATION Patient Name: YOLI ANTUNEZ [facility] Rec: [id number] Path Number: [id number] [facility] ANATOMIC PATHOLOGY [address] [place] [address]. [place], [place] [address] bON [facility], Random Uron [id number] (U) [Moles/Vol]83 mmol/LNormalSumma Health Wadsworth - Rittman Medical CenterComment on above:Result Comment: No normal range established. Performed By: #### URNA, URTPRT, UMICAO, UEOS, UA #### [facility] [place] [address] Immigration Patrol Inspector: Ronn Arias MDUrinalysison [id number] UrineNegative NEGATIVEBON [facility] HEALTHColor, UAYellowYellowB[facility] HEALTH Glucose, UrNegativeNEGATIVEBON SEC[facility] MER[facility] ANDERSON HOSPITALY HEALTHInterpretation and review of laboratory resultsAbnormalBON [facility] MERCY HEALTHKetones Ql (U)NegativeNEGATIVE [facility] HEALTHLeukocyte esterase Test strip Ql (U)NegativeNEGATIVEBON SECOURS MERCY HEALTH ANDERSON HOSPITALY HEALTHNitrite, UrineNegativeNEGATIVEB[facility]ERSON HOSPITALY HEALTHpH, UA 5.55 - 8[facility] CoworkingON HEALTHProtein, UATRACEAbnormalNEGATIVEBON SECOURS MER[facility] HEALTH ANDERSON HOSPITALY HEALTHSpecific [place], UA1.0141.005 - 1.03[facility]OS[facility]ITALY HEALTH Turbidity UAClearClearBON SECOURS MER[facility]ALTH ANDERSON HOSPITALY HEALTHUrine HgbTRACEAbnormalNEGATIVEBON SEC[facility]RS MER[facility]ALTH ANDERSON HOSPITALY HEALTHUrobilinogen, UrineNormalNormalB[facility] MERCY HEALTHBON [facility] MER[facility]ERSON HOSPITALY HEALTHUrinalysis, Routineon [id number], SemiQt,UrNegative NormalNEGSumma Health Wadsworth - Rittman Medical CenterComment on above:Performed By: #### URNA, URTPRT, UMICAO, UEOS, UA #### [facility] [address] [place] [address] Immigration Patrol Inspector: Jeanette Rosenthal, UrineTRACEAbnormalNEGSumma Health Wadsworth - Rittman Medical CenterComment on above:Performed By: #### URNA, URTPRT, UMICAO, UEOS, UA #### [facility] [address] [place] [phone] Immigration Patrol Inspector: RAY Rosenthallarity (U)ClearNormalCLEARMercy Patton State HospitalComment on above:Performed By: #### URNA, URTPRT, UMICAO, UEOS, UA #### [facility] [address] [place] [address] Immigration Patrol Inspector: RAY Rosenthalolor (U)YellowNormalYELMerLoma Linda University Medical Center-EastComment on above:Performed By: #### URNA, URTPRT, UMICAO, UEOS, UA #### [facility] [address] [place] [address] Immigration Patrol Inspector: Ronn Arias MDGlucose Ql (U)NegativeNormalNEGMerLoma Linda University Medical Center-EastComment on above:Performed By: #### URNA, URTPRT, UMICAO, UEOS, UA #### [facility] [address] [place] [address] Immigration Patrol Inspector: Ronn Arias MDKetones Ql (U)NegativeNormalNEGMerLoma Linda University Medical Center-EastComment on above:Performed By: #### URNA, URTPRT, UMICAO, UEOS, UA #### [facility] [address] [place] [address] Immigration Patrol Inspector: Ronn Arias MDLeukocyte esterase Test strip Ql (U)Negative NormalNEGMerLoma Linda University Medical Center-EastComment on above:Performed By: #### URNA, URTPRT, UMICAO, UEOS, UA #### [facility] [address] [place] [address] Immigration Patrol Inspector: Ronn Arias MDNitrite,UrNegativeNormalNEGMerLoma Linda University Medical Center-EastComment on above:Performed By: #### URNA, URTPRT, UMICAO, UEOS, UA #### [facility] [address] [place] [address] Immigration Patrol Inspector: Ronn Arias [facility],Ur5.3Splnpy0.0-8.0Summa Health Wadsworth - Rittman Medical CenterComment on above:Performed By: #### URNA, URTPRT, UMICAO, UEOS, UA #### [facility] [address] [place] [address] Immigration Patrol Inspector: MARQUEZ Rosenthalrotein Ql (U)TRACEAbnormalNEGSumma Health Wadsworth - Rittman Medical CenterComment on above:Performed By: #### URNA, URTPRT, UMICAO, UEOS, UA #### [facility] [address] [place] [address] Immigration Patrol Inspector: GUILLERMO Rosenthalevergreenhealth. [place],Ur1.695Iytkjv9.005-1.030Sum[facility] Health W[facility] - Rittman Medical CenterComment on above:Performed By: #### URNA, URTPRT, UMICAO, UEOS, UA #### [facility] [address] [place] [address] Immigration Patrol Inspector: Ronn Arias MDUrobilinogen,UrNormalNormalNORMSumma Health Wadsworth - Rittman Medical CenterComment on above:Performed By: #### URNA, URTPRT, UMICAO, UEOS, UA #### [address] [address] Immigration Patrol Inspector: Ronn Arias MDUrinalysis,Microon [id number] TO 5 HYALINE Normal0-8Summa Health Wadsworth - Rittman Medical CenterComment on above:Result Comment: Reference range defined for non-centrifuged specimen.Performed By: #### URNA, URTPRT, UMICAO, UEOS, UA #### [facility] [address] [place] [address] Immigration Patrol Inspector: Ronn Arias MDEpithelial cells LM Ql (Urine sed)NoneNormal0-5 [facility] Rittman Medical CenterComment on above:Performed By: #### URNA, URTPRT, UMICAO, UEOS, UA #### [address] [place] [address] Immigration Patrol Inspector: Chrissy Rosenthal RBC's2 TO 6Rgruev8-8CicpwSumma Health Wadsworth - Rittman Medical CenterComment on above:Result Comment: Reference range defined for non- centrifuged specimen.Performed By: #### URNA, URTPRT, UMICAO, UEOS, UA #### [address] [address] Immigration Patrol Inspector: Chrissy Rosenthal WBC's2 TO 5Iythrr8-9UwsrySumma Health Wadsworth - Rittman Medical CenterComment on above:Performed By: #### URNA, URTPRT, UMICAO, UEOS, UA #### [address] [address] Immigration Patrol Inspector: Ever Rosenthal Metab w/rfx MGon 01-02-2022(cont.)Normal Sum[facility] W[facility] - Rittman Medical CenterComment on above:Result Comment: Average GFR for 60-69 years old: 85 mL/min/1.73sq m Chronic Kidney Disease: <60 mL/min/1.73sq m Kidney failure: <15 mL/min/1.73sq m eGFR calculated using average adult body mass. Additional eGFR calculator available at: http://www.[employer].LaunchCyte/multiple_crcl_2012.htmPerformed By: #### MAYCOL #### [address] [address] Immigration Patrol Inspector: Ronn Arias MDAnion gap [Moles/Vol]14 mmol/LNormal9-17Sum[facility] Wad[facility] - Rittman Medical CenterComment on above:Performed By: #### MAYCOL #### [address] [address] Immigration Patrol Inspector: Ronn Arias MDCalcium [Mass/Vol]7.2 mg/dLLow8.6-10.4Summa Health Wad[facility] - Rittman Medical CenterComment on above:Performed By: #### LACDS #### [facility] [place] [address] Immigration Patrol Inspector: RAY Rosenthalhloride [Moles/Vol]108 mmol/XEkjd64-666ApbkxSumma Health Wadsworth - Rittman Medical CenterComment on above:Performed By: #### LACDS #### [address] [address] Immigration Patrol Inspector: Ronn Arias MDCO2 [Moles/Vol]20 mmol/LXtpjul51-00TiluiSumma Health Wadsworth - Rittman Medical CenterComment on above:Performed By: #### LACDS #### [address] [address] Immigration Patrol Inspector: RAY Rosenthalreatinine [Mass/Vol]3.51 mg/dLHigh0.70-1.20 [facility] Rittman Medical CenterComment on above:Performed By: #### LACDS #### [address] [address] Immigration Patrol Inspector: Ronn Arias MDGFR, Amer21 mL/minLow>60Sum[facility] Rittman Medical CenterComment on above:Performed By: #### LACDS #### [address] [address] Immigration Patrol Inspector: Ronn Arias MDGFR,non Amer17 mL/minLow>60Sum[facility] Rittman Medical CenterComment on above:Performed By: #### LACDS #### [address] [address] Immigration Patrol Inspector: Ronn Arias MDGlucose [Mass/Vol]122 mg/bEBycl56-87BhtzaSharp Grossmont HospitalComment on above:Performed By: #### LACDS #### [address] [address] Immigration Patrol Inspector: Ronn Arias MDPotassium [Moles/Vol]5.0 mmol/LNormal3.7-5.3 [facility] Rittman Medical CenterComment on above:Performed By: #### LACDS #### [address] [address] Immigration Patrol Inspector: GUILLERMO Rosenthalodium [Moles/Vol]142 mmol/EVampgz574-426YidoxSumma Health Wadsworth - Rittman Medical CenterComment on above:Performed By: #### LACDS #### [place] [address] Immigration Patrol Inspector: Ronn Arias MDUrea nitrogen [Mass/Vol]55 mg/dLHigh8-23Sum[facility] Wad[facility] - Rittman Medical CenterComment on above:Performed By: #### MAYCOL #### [place] [address] Immigration Patrol Inspector: Ronn Arias MD(cont.)[facility] Comment on above:Result Comment: Average GFR for 60-69 years old: 85 mL/min/1.73sq m Chronic Kidney Disease: <60 mL/min/1.73sq m Kidney failure: <15 mL/min/1.73sq m eGFR calculated using average adult body mass. Additional eGFR calculator available at: http://www.[employer].LaunchCyte/multiple_crcl_2012.htmPerformed By: #### LIVP, BMPX, LIP, CDP #### [place] [address] Immigration Patrol Inspector: Ronn Arias MDAnion gap [Moles/Vol]14 mmol/LNormal9-17Sum[facility] Rittman Medical CenterComment on above:Performed By: #### LIVP, BMPX, LIP, CDP #### [address] [address] Immigration Patrol Inspector: Ronn Arias MDCalcium [Mass/Vol]7.2 mg/dLLow8.6-10.4Sum[facility] - Rittman Medical CenterComment on above:Performed By: #### LIVP, BMPX, LIP, CDP #### [facility] [address] [place] [address] Immigration Patrol Inspector: RAY Rosenthalhloride [Moles/Vol]109 mmol/AItrv75-343WkapySumma Health Wadsworth - Rittman Medical CenterComment on above:Performed By: #### LIVP, BMPX, LIP, CDP #### [facility] [address] [place] [address] Immigration Patrol Inspector: Ronn Arias MDCO2 [Moles/Vol]18 mmol/ZTog04-47FfxiqSumma Health Wadsworth - Rittman Medical CenterComment on above:Performed By: #### LIVP, BMPX, LIP, CDP #### [facility] [address] [place] [address] Immigration Patrol Inspector: RAY Rosenthalreatinine [Mass/Vol]4.02 mg/dLHigh0.70-1.20 [facility] Rittman Medical CenterComment on above:Performed By: #### LIVP, BMPX, LIP, CDP #### [facility] [address] [place] [address] Immigration Patrol Inspector: Ronn Arias MDGFR, Amer18 mL/minLow>60[facility] Rittman Medical CenterComment on above:Performed By: #### LIVP, BMPX, LIP, CDP #### [facility] [address] [place] [address] Immigration Patrol Inspector: Ronn Arias MDGFR,non Amer15 mL/minLow>60[facility] Ritt[facility] Medical CenterComment on above:Performed By: #### LIVP, BMPX, LIP, CDP #### [facility] [address] [place] [address] Immigration Patrol Inspector: Ronn Arias MDGlucose [Mass/Vol]106 mg/pRShgs32-64EkynnSharp Grossmont HospitalComment on above:Performed By: #### LIVP, BMPX, LIP, CDP #### [facility] [address] [place] [phone] Immigration Patrol Inspector: MARQUEZ Rosenthalotassium [Moles/Vol]4.6 mmol/LNormal3.7-5.3 [facility] Ritt[facility] Medical CenterComment on above:Performed By: #### LIVP, BMPX, LIP, CDP #### [facility] [address] [place], [place] [phone] Immigration Patrol Inspector: GUILLERMO Rosenthalodium [Moles/Vol]141 mmol/EDeoawa816-973CggnhSumma Health Wadsworth - Rittman Medical CenterComment on above:Performed By: #### LIVP, BMPX, LIP, CDP #### [facility] [address] [place] [address] Immigration Patrol Inspector: Ronn Arias MDUrea nitrogen [Mass/Vol]63 mg/dLMontgomery General Hospital8-23Sum[facility] Rittman Medical CenterComment on above:Performed By: #### LIVP, BMPX, LIP, CDP #### [facility] [address] [place] [address] Immigration Patrol Inspector: Enmanuel Rosenthalkosair children's hospital Metabolic Panel w/ Reflex to MGon [id number] gap [Moles/Vol]14 mmol/L9 - 17 mmol/LBON [facility]PR[facility] [employer] Calcium [Mass/Vol]7.2 mg/dLLow8.6 - 10.4 mg/dLBON [facility] MERCY HEALTHChloride [Moles/Vol]108 mmol/LHigh98 - 107 mmol/LBON SECOURS MERCY HEALTHCO2 [Moles/Vol] 20 mmol/L20 - 31 mmol/LBON SECOURS CoworkingON HEALTHCreatinine [Mass/Vol]3.51 mg/dL High0.7 - 1.2 mg/dLBON SECOURS Digital TheatreY HEALTHGFR Chmbkzgw12 mL/kklOwf25 - PINF mL/minBON SECCROWNPOINT [facility] Digital TheatreY HEALTHGFR Non- Aengrzpw18 mL/twzYev78 - PINF mL/minBON SECOURS Digital TheatreY HEALTHGFR/1.73 sq M.predicted MDRD (S/P/Bld) [Vol rate/Area]BON [facility] MEDICAL CENTERSMB Suite [facility] VA MEDICAL CENTERComment on above:Average GFR for 60-69 years old: 85 mL/min/1.73sq m Chronic Kidney Disease: <60 mL/min/1.73sq m Kidney failure: <15 mL/min/1.73sq m eGFR calculated using average adult body mass. Additional eGFR calculator available at: http://www.[employer]/FriendFit_crcl_2012.htm Glucose [Mass/Vol]122 mg/aUMjyr58 - 99 mg/dLB[facility] Likez Interpretation and review of laboratory resultsAbnormalBON [facility] HEALTH Potassium [Moles/Vol]5.0 mmol/L3.7 - 5.3 mmol/LBON SECOURS MERCY HEALTHSodium [Moles/Vol]142 mmol/L135 - 144 mmol/LBON SECOURS [facility] ANDERSON HOSPITALAdvent Health PartnersUrea nitrogen (BldV) [Mass/Vol]55 mg/dLHigh8 - 23 mg/dLBON SECOURS MERCY HEALTH ANDERSON HOSPITALY HEALTHBON SECOURS MERCY HEALTH ANDERSON HOSPITALY Boom FinancialAnion gap [Moles/Vol]14 mmol/L9 - 17 mmol/LBON [facility] HEALTH Calcium [Mass/Vol]7.2 mg/dLLow8.6 - 10.4 mg/dLBON [facility]RS MERCY HEALTHChloride [Moles/Vol]109 mmol/LHigh98 - 107 mmol/LBON SEC[facility]RS [facility] ANDERSON HOSPITALY HEALTHCO2 [Moles/Vol] 18 mmol/LLow20 - 31 mmol/LBON [facility] ANDERSON HOSPITALY HEALTHCreatinine [Mass/Vol]4.02 mg/dLHigh0.7 - 1.2 mg/dLBON SEC[facility]ALTH ANDERSON HOSPITALY HEALTHGFR Sgxcpcds84 mL/minLow 60 - PINF mL/minBON SECOURS Digital TheatreY HEALTHGFR Non- Avvgpjae18 mL/nnhZfr35 - PINF mL/minBON SECOURS Digital TheatreY HEALTHGFR/1.73 sq M.predicted MDRD (S/P/Bld) [Vol rate/Area][facility]WOOD HOSPITALComment on above:Average GFR for 60-69 years old: 85 mL/min/1.73sq m Chronic Kidney Disease: <60 mL/min/1.73sq m Kidney failure: <15 mL/min/1.73sq m eGFR calculated using average adult body mass. Additional eGFR calculator available at: http://www.[employer]/multiple_crcl_2011.htm Glucose [Mass/Vol]106 mg/xCLszv07 - 99 mg/dLBON SECKETTER[facility] HEALTH MAIN CAMPUSPotassium [Moles/Vol]4.6 mmol/L3.7 - 5.3 mmol/LBON SECKETTERING HEALTH MAIN CAMPUSSodium [Moles/Vol] 141 mmol/L135 - 144 mmol/LBON SECKETTERING HEALTH MAIN CAMPUSUrea nitrogen (BldV) [Mass/Vol]63 mg/dLHigh8 - 23 mg/dLBON SECKETTERING HEALTH MAIN CAMPUSCBC with Auto Differentialon [id number] Eos #0.12[facility] CAMPUSAbsolute Immature Granulocyte0.00[facility] CAMPUSAbsolute Lymph #0.37LowBON SECKETTERING HEALTH MAIN CAMPUSAbsolute Tucker #0.49B[facility] HOSPITALBasophils (Bld) [#/Vol]0.00 10*3/uLBON PARKWOOD HOSPITALBasophils/100 WBC (Bld)0 %0 - 2 %[facility] ALLEGHANYEosinophils/100 WBC (Bld)1 %1 - 4 %[facility] Hematocrit (Bld) [Volume fraction]30.4 %Low40.7 - 50.3 %[facility] Hemoglobin (Bld) [Mass/Vol]10.2 g/dLLow13 - 17 g/dLBON [facility] Immature granulocytes/100 WBC (Bld)0 %0B[facility]ARKWOOD HOSPITALInterpretation and review of laboratory resultsAbnormalBON PARKWOOD HOSPITALLymphocytes/100 WBC (Bld)3 %Low24 - 44 %[facility]ITALH (RBC) [Entitic mass]28.0 pg 25.2 - 33.5 pgBON MERCY MEMORIAL HOSPITALHC (RBC) [Mass/Vol]33.6 g/dL28.4 - 34.8 g/dLBON SECNEWARK HOSPITALV (RBC) [Entitic vol]83.5 fL82.6 - 102.9 fLBON PARKWOOD HOSPITALMonocytes/100 WBC (Bld)4 %1 - 7 %[facility] Morphology Gordon (Bld) [Interp]NormalBON PARKWOOD HOSPITALNRBC Automated0.00.0 per 100 WBCBON SECPRAIRIEVILLE [facility] HEALTHPlatelet distribution width (Bld) [Ratio]14.4 %11.8 - 14.4 %BON SECPROVIDENCE MOUNT CARMEL HOSPITALY HEALTHPlatelet mean volume (Bld) [Entitic vol] 10.3 fL8.1 - 13.5 fLBON SECPRAIRIEVILLE FAMILY [facility]ITAL HEALTHPlatelets (Bld) [#/Vol]150 10*3/uL [facility] HEALTHRBC (Bld) [#/Vol]3.64 10*6/uLLow4.21 - 5.77 m/uLBON PARKWOOD HOSPITALSegmented neutrophils/100 WBC (Bld)92 %High36 - 66 %[facility] HEALTHSegs Hxnqvejy34.22HighBON PARKWOOD HOSPITALWBC (Bld) [#/Vol]12.2 10*3/uLHighBON PARKWOOD HOSPITALBON SECPR[facility]IRIEVIL[facility] HEALTHCBC with Diffon [id number]. Basophil0.00 k/uLNormal0.0-0.2MercChildren's Hospital and Health CenterComment on above:Performed By: #### MAYCOL #### [address] [place] [address] Immigration Patrol Inspector: MDAbs. GaloImm.Granulocyte0.00 k/uLNormal0.00-0.30[facility] Rittman Medical CenterComment on above:Performed By: #### LACDS #### [employer] [place] [address] Immigration Patrol Inspector: MDAbs. GaloNeutrophil (Seg)11.22 k/uLHigh1.8-7.7[facility] Ritt[facility] Medical CenterComment on above:Performed By: #### LACDS #### [address] [place] [address] Immigration Patrol Inspector: Ronn Arias MDBasophils/100 WBC (Bld)0 %Normal0-2MercChildren's Hospital and Health CenterComment on above:Performed By: #### LACDS #### [address] [place] [address] Immigration Patrol Inspector: Ronn Arias MDEosinophils (Bld) [#/Vol]0.12 10*3/uLNormal 0.0-0.4[facility]itt[facility] Medical CenterComment on above:Performed By: #### LACDS #### [address] [address] Immigration Patrol Inspector: Ronn Arias MDEosinophils/100 WBC (Bld)1 %Normal1-4[facility] Rittman Medical CenterComment on above:Performed By: #### LACDS #### [address] [address] Immigration Patrol Inspector: Ronn Arias MDImmature granulocytes/100 WBC (Bld)0 %Normal0 [facility]itt[facility] Medical CenterComment on above:Performed By: #### LACDS #### [address] [address] Immigration Patrol Inspector: Ronn Arias MDLymphocytes (Bld) [#/Vol]0.37 10*3/uLLow1.0-4.8 [facility] Medical CenterComment on above:Performed By: #### LACDS #### [address] [address] Immigration Patrol Inspector: Ronn Arias MDLymphocytes/100 WBC (Bld)3 %Uav50-14DokbySumma Health Wadsworth - Rittman Medical CenterComment on above:Performed By: #### LACDS #### [address] [address] Immigration Patrol Inspector: FRANKIE Rosenthalonocytes (Bld) [#/Vol]0.49 10*3/uLNormal0.1-0.8 [facility]itt[facility] Medical CenterComment on above:Performed By: #### LACDS #### [address] [address] Immigration Patrol Inspector: FRANKIE Rosenthalonocytes/100 WBC (Bld)4 %Normal1-7Sum[facility] Rittman Medical CenterComment on above:Performed By: #### LACDS #### [address] [address] Immigration Patrol Inspector: FRANKIE Rosenthalorphology Gordon (Bld) [Interp]NormalNormalSumma Health Wadsworth - Rittman Medical CenterComment on above:Performed By: #### LACDS #### [address] [address] Immigration Patrol Inspector: Ronn Arias MDNeutrophil (Seg)92 %Qtdb87-94UajdjSumma Health Wadsworth - Rittman Medical CenterComment on above:Performed By: #### LACJONES #### [address] [address] Immigration Patrol Inspector: Ronn Arias MDErythrocyte distribution width (RBC) [Ratio]14.4 %Lpvusu87.8-14.4[facility]itt[facility] Medical CenterComment on above:Performed By: #### LACJONES #### [address] [address] Immigration Patrol Inspector: Ronn Arias MDHematocrit (Bld) [Volume fraction]30.4 %Low 40.7-50.3[facility] State HospitalComment on above:Performed By: #### LACDS #### [address] [address] Immigration Patrol Inspector: Ronn Arais MDHemoglobin (Bld) [Mass/Vol]10.2 g/dLLow13.0-17.0 [facility] Medical CenterComment on above:Performed By: #### LACDS #### [address] [address] Immigration Patrol Inspector: FRANKIE RosenthalCH (RBC) [Entitic mass]28.0 jsWuxcgn23.2-33.5 [facility] Medical CenterComment on above:Performed By: #### MAYCOL #### [address] [address] Immigration Patrol Inspector: FRANKIE RosenthalCHC (RBC) [Mass/Vol]33.6 g/jIMhwkqu21.4-34.8 [facility] Medical CenterComment on above:Performed By: #### MAYCOL #### [address] [address] Immigration Patrol Inspector: FRANKIE RosenthalCV (RBC) [Entitic vol]83.5 yRIaiaoy82.6-102.9 [facility]itt[facility] Medical CenterComment on above:Performed By: #### MAYCOL #### [place] [address] Immigration Patrol Inspector: YUNI Rosenthal Automated0.0 per 100 WBCNormal0.0[facility]itt[facility] Medical CenterComment on above:Performed By: #### MAYCOL #### [place] [address] Immigration Patrol Inspector: Kaila Rosenthaltemarcelo mean volume (Bld) [Entitic vol]10.3 fL Normal8.1-13.5[facility]itt[facility] Medical CenterComment on above:Performed By: #### MAYCOL #### [place] [address] Immigration Patrol Inspector: MARQUEZ Rosenthallatelets (Bld) [#/Vol]150 10*3/jKBazkne412-391 [facility] Medical CenterComment on above:Performed By: #### MAYCOL #### [address] [address] Immigration Patrol Inspector: Ronn Arias MDRBC (Bld) [#/Vol]3.64 10*6/uLLow4.21-5.77[facility]itt[facility] Medical CenterComment on above:Performed By: #### LACDS #### [facility] [address] [place] [address] Immigration Patrol Inspector: RAISA Rosenthal (Bld) [#/Vol]12.2 10*3/uLHigh3.5-11.3[facility] State HospitalComment on above:Performed By: #### LACDS #### [facility] [address] [place], [place] [id number] Immigration Patrol Inspector: RAY Rosenthalult,Urineon [id number],UrineSpecimen Description .URINE Culture NO GROWTH Report Status FINAL 01/02/2022NormalSumma Health Wadsworth - Rittman Medical CenterComment on above:Performed By: #### URNA, URTPRT, UMICAO, UEOS, UA #### [employer] [place], [place] [id number] Immigration Patrol Inspector: RAY Rosenthalulture, Urineon [id number] identified Cx Nom (U)NO GROWTHBON [facility] HEALTHSpecimen Description.URINEBON SECK[facility] MAIN CAMPUSBON [facility] HEALTHHepatic Function Panelon [id number] [Mass/Vol]2.9 g/dLLow3.5 - 5.2 g/dLBON [facility] HEALTHAlbumin/Globulin [Mass ratio]0.9 {ratio}Low1 - 2.5BON [facility] HEALTHALP (Bld) [Catalytic activity/Vol]96 U/L40 - 129 U/LBON [facility] HEALTHALT [Catalytic activity/Vol]123 U/LHigh5 - 41 U/LBON [facility] HEALTHAST [Catalytic activity/Vol]50 U/LHighNINF - 40 U/LBON [facility] HEALTHBilirubin [Mass/Vol] 1.8 mg/dLHigh0.3 - 1.2 mg/dLBON [facility] HEALTHBilirubin, Indirect0.7 mg/dL 0 - 1 mg/dLBON [facility] HEALTHBilirubin.indirect [Mass/Vol]1.1 mg/dLHigh NINF - 0.31 mg/dLBON [facility] PSA/Total PSA [Mass fraction]6.1 g/dLLow6.4 - 8.3 g/dLBON PARKWOOD HOSPITALLactate, Sepsison [id number] Acid, Sepsis, Whole Blood1.2 mmol/L0.5 - 1.9 mmol/LBON [facility] HOSPITALLactic Acid,Sep Wbld1.3 mmol/LNormal0.5-1.9Sum[facility] Rittman Medical CenterComment on above:Performed By: #### URNA, URTPRT, UMICAO, UEOS, UA #### [employer] [place], [place] [phone] Immigration Patrol Inspector: Frances Rosenthalctic Acid, Sepsis, Whole Blood1.3 mmol/L0.5 - 1.9 mmol/LBON [facility] MEM[facility]IAL HOSPITALLactic Acid,Sep Wbld 1.0 mmol/LNormal0.5-1.9[facility] Rittman Medical CenterComment on above: Performed By: #### URNA, URTPRT, UMICAO, UEOS, UA #### [employer] [place], [place] [phone] Immigration Patrol Inspector: Frances Rosenthalctic Acid, Sepsis, Whole Blood1.0 mmol/L0.5 - 1.9 mmol/LBON [facility] HOSPITALLactic Acid,Sep Wbld 0.9 mmol/LNormal0.5-1.9[facility] Rittman Medical CenterComment on above: Performed By: #### URNA, URTPRT, UMICAO, UEOS, UA #### [employer] [place] [address] Immigration Patrol Inspector: Frances Rosenthalctic Acid, Sepsis, Whole Blood0.9 mmol/L0.5 - 1.9 mmol/LBON [facility]ORIAL HOSPITALLipaseon 01-02-2022 Lipase [Catalytic activity/Vol]1280 U/LHyzq80-15TybiaSumma Health Wadsworth - Rittman Medical Center Comment on above:Performed By: #### LIVP, BMPX, LIP, CDP #### [facility] [employer] [address] [place] [address] Immigration Patrol Inspector: Ronn Arias MDInterpretation and review of laboratory results AbnormalBON PARKWOOD HOSPITALLipase [Catalytic activity/Vol]1280 U/LHigh13 - 60 U/LBON [facility] HEALTHBON PARKWOOD HOSPITALLiver Profileon 01-02-2022 Albumin [Mass/Vol]2.9 g/dLLow3.5-5.2Mpremier healthy [facility] State HospitalComment on above:Performed By: #### LIVP, BMPX, LIP, CDP #### [facility] [address] [place] [address] Immigration Patrol Inspector: Ronn Arias MDAlbumin/Glob Ratio0.9Low1.0-2.5Sum[facility] Rittman Medical CenterComment on above:Performed By: #### LIVP, BMPX, LIP, CDP #### [employer] [place] [address] Immigration Patrol Inspector: Ronn Arias MDAlkaline Phos96 U/JMcvqtv60-842PkfbpSumma Health Wadsworth - Rittman Medical CenterComment on above:Performed By: #### LIVP, BMPX, LIP, CDP #### [employer] [address] [place] [address] 59971 Immigration Patrol Inspector: Ronn Arias MDALT [Catalytic activity/Vol]123 U/LHigh5-41[facility] Rittman Medical CenterComment on above:Performed By: #### LIVP, BMPX, LIP, CDP #### [employer] [address] [place] [address]373 Immigration Patrol Inspector: Ronn Arias MDAST [Catalytic activity/Vol]50 U/LHigh<40Sum[facility] Rittman Medical CenterComment on above:Performed By: #### LIVP, BMPX, LIP, CDP #### [facility] [employer] [address] [place] [address]64 Immigration Patrol Inspector: Ronn Arias MDBilirubin [Mass/Vol]1.8 mg/dLHigh0.3-1.2MSharp Grossmont HospitalComment on above:Performed By: #### LIVP, BMPX, LIP, CDP #### [address] [address] Immigration Patrol Inspector: Pamela Rosenthalirubin, Indirect0.7 mg/dLNormal0.00-1.00[facility] Rittman Medical CenterComment on above:Performed By: #### LIVP, BMPX, LIP, CDP #### [facility] [employer] [address] [place] [address] 14342 Immigration Patrol Inspector: Pamela Rosenthalirubin.indirect [Mass/Vol]1.1 mg/dLHigh<0.31 [facility] Ritt[facility] Medical CenterComment on above:Performed By: #### LIVP, BMPX, LIP, CDP #### [facility] [employer] [address] [place] [address]357 Immigration Patrol Inspector: Ronn Arias MDProtein [Mass/Vol]6.1 g/dLLow6.4-8.3MSharp Grossmont HospitalComment on above:Performed By: #### LIVP, BMPX, LIP, CDP #### [facility] [employer] [address] [place] [address] Immigration Patrol Inspector: Ronn Arias MDNo Panel Informationon [id number] and review of laboratory resultsAbnormRiverside Tappahannock HospitalProtein,Tot,Homer Uron [id number] Prot. Conc.59 mg/dLNoOhioHealth Doctors HospitalComment on above:Result Comment: No normal range established.Performed By: #### URNA, URTPRT, UMICAO, UEOS, UA #### [facility] [employer] [address] [place] [address] 21095 Immigration Patrol Inspector: GUILLERMO Rosenthalurgical Pathologyon [id number] Pathology(NOTE) -- Diagnosis -- Gallbladder: - Chronic cholecystitis. [...] two black choleliths, each measuring 0.5 cm. 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 tm Microscopic Description Microscopic examination performed. SURGICAL PATHOLOGY CONSULTATION Patient Name: YOLI ANTUNEZ [facility] Rec: [id number] Path Number: [id number] [facility] ANATOMIC PATHOLOGY [address] [place] [phone] NoOhioHealth Doctors HospitalComment on above: Performed By: #### LACDS #### [employer] [place] [address] [phone] Immigration Patrol Inspector: Ronn Arias MDUS RENAL LIMITEDon [id number] RENAL LIMITED EXAMINATION: ULTRASOUND OF THE KIDNEYS [...] Signed by: Naif Bean MD 01/02/22 Final resultNormalMerLoma Linda University Medical Center-EastUnremarkable renal ultrasound. No hydronephrosis. [facility] CONSOLIDATEDEXAMINATION: ULTRASOUND OF THE KIDNEYS 01/02/2022 8:22 am [...] of the bilateral corticomedullary differentiation. [facility] Naif Bruce MD - 01/02/2022 EXAMINATION: ULTRASOUND OF THE [...] differentiation. IMPRESSION: Unremarkable renal ultrasound. No hydronephrosis. [employer] Phone: radiology Study observation (narrative)[employer] Phone: us RENAL LIMITEDOrdered By: Naif Bean on 01-02-2022 [facility] [employer] Work Phone: Basic Metabolic Panelon [id number] gap [Moles/Vol]14 mmol/L9 - 17 mmol/LBON [facility] MEDICAL CENTERGLOBALBASED TECHNOLOGIESCalcium [Mass/Vol]6.4 mg/dLLow8.6 - 10.4 mg/dLBON [facility] CENTERGLOBALBASED TECHNOLOGIESChloride [Moles/Vol]106 mmol/L98 - 107 mmol/LBON XeccedCO2 [Moles/Vol]19 mmol/LLow20 - 31 mmol/L [facility] XeccedCreatinine [Mass/Vol]3.73 mg/dLHigh0.7 - 1.2 mg/dLBON XeccedComment on above:ICTERIC SPECIMENGFR Fgtywynr33 mL/qzhKcx19 - PINF mL/minBANNER IRONWOOD MEDICAL CENTER XeccedGFR Non- Qkecxroa76 mL/xbyQko35 - PINF mL/minBANNER IRONWOOD [facility]ICAL [facility] XeccedGFR/1.73 sq M.predicted MDRD (S/P/Bld) [Vol rate/Area][facility] XeccedComment on above:Average GFR for 60-69 years old: 85 mL/min/1.73sq m Chronic Kidney Disease: <60 mL/min/1.73sq m Kidney failure: <15 mL/min/1.73sq m eGFR calculated using average adult body mass. Additional eGFR calculator available at: http://www.[employer].Launch[employer]te/multiple_crcl_2011.htm Glucose [Mass/Vol]114 mg/bLGaoa17 - 99 mg/dLBON [employer] Interpretation and review of laboratory resultsAbnormalBON [employer] Potassium [Moles/Vol]4.4 mmol/L3.7 - 5.3 mmol/LBON XeccedSodium [Moles/Vol]139 mmol/L135 - 144 mmol/LBON XeccedUrea nitrogen (BldV) [Mass/Vol]58 mg/dLHigh8 - 23 mg/dLBON [facility] CENTERGLOBALBASED TECHNOLOGIESBOURNEWOOD HOSPITALGLOBALBASED TECHNOLOGIESBasic Metabolic Profon 01-01-2022(cont.)NormalSumma Health Wadsworth - Rittman Medical CenterComment on above:Result Comment: Average GFR for 60-69 years old: 85 mL/min/1.73sq m Chronic Kidney Disease: <60 mL/min/1.73sq m Kidney failure: <15 mL/min/1.73sq m eGFR calculated using average adult body mass. Additional eGFR calculator available at: http://www.[employer]/multiple_crcl_2012.htmPerformed By: #### URNA, URTPRT, UMICAO, UEOS, UA #### [facility] [address] [place] [address]84 Immigration Patrol Inspector: Ronn Arias MDAnion gap [Moles/Vol]14 mmol/LNormal9-17[facility] Rittman Medical CenterComment on above:Performed By: #### URNA, URTPRT, UMICAO, UEOS, UA #### [facility] [employer] [facility] [address] [place] [address] Immigration Patrol Inspector: RAY Rosenthalalcium [Mass/Vol]6.4 mg/dLLow8.6-10.4Sum[facility] Rittman Medical CenterComment on above:Performed By: #### URNA, URTPRT, UMICAO, UEOS, UA #### [employer] [address] [place] [address]44 Immigration Patrol Inspector: Ronn Arias MDChloride [Moles/Vol]106 mmol/MKdkmdr34-851HnolcSumma Health Wadsworth - Rittman Medical CenterComment on above:Performed By: #### URNA, URTPRT, UMICAO, UEOS, UA #### [facility] [address] [place] [address] 04569 Immigration Patrol Inspector: Ronn Arias MDCO2 [Moles/Vol]19 mmol/WNvl91-65RkyemSumma Health Wadsworth - Rittman Medical CenterComment on above:Performed By: #### URNA, URTPRT, UMICAO, UEOS, UA #### [facility] [address] [place] [address]509 Immigration Patrol Inspector: RAY Rosenthalreatinine [Mass/Vol]3.73 mg/dLHigh0.70-1.20 [facility] Rittman Medical CenterComment on above:Result Comment: ICTERIC SPECIMENPerformed By: #### URNA, URTPRT, UMICAO, UEOS, UA #### [facility] [address] [place] [address]891 Immigration Patrol Inspector: Ronn Arias MDGFR, Amer20 mL/minLow>60[facility]itt[facility] Medical CenterComment on above:Performed By: #### URNA, URTPRT, UMICAO, UEOS, UA #### [address] [address] Immigration Patrol Inspector: Ronn Arias MDGFR,non Amer16 mL/minLow>60[facility] Rittman Medical CenterComment on above:Performed By: #### URNA, URTPRT, UMICAO, UEOS, UA #### [address] [address] Immigration Patrol Inspector: Ronn Arias MDGlucose [Mass/Vol]114 mg/jGUmiu00-96YzjvuSharp Grossmont HospitalComment on above:Performed By: #### URNA, URTPRT, UMICAO, UEOS, UA #### [address] [address] Immigration Patrol Inspector: MARQUEZ Rosenthalotassium [Moles/Vol]4.4 mmol/LNormal3.7-5.3 [facility] Ritt[facility] Medical CenterComment on above:Performed By: #### URNA, URTPRT, UMICAO, UEOS, UA #### [facility] [address] [place] [address]75 Immigration Patrol Inspector: GUILLERMO Rosenthalodium [Moles/Vol]139 mmol/OWhtacu498-318RsmgoSumma Health Wadsworth - Rittman Medical CenterComment on above:Performed By: #### URNA, URTPRT, UMICAO, UEOS, UA #### [facility] [address] [place] [address] 19243 Immigration Patrol Inspector: Ronn Arias MDUrea nitrogen [Mass/Vol]58 mg/dLHigh8-23[facility] Rittman Medical CenterComment on above:Performed By: #### URNA, URTPRT, UMICAO, UEOS, UA #### [facility] [address] [place] [address] 23980 Immigration Patrol Inspector: Chelsie Rosenthal [id number] distribution width (RBC) [Ratio]14.5 %High11.8-14.4[facility] Rittman Medical CenterComment on above:Performed By: #### URNA, URTPRT, UMICAO, UEOS, UA #### [facility] [employer] [address] [place] [address]01 Immigration Patrol Inspector: Ronn Arias MDHematocrit (Bld) [Volume fraction]30.0 %Low 40.7-50.3MSharp Grossmont HospitalComment on above:Performed By: #### URNA, URTPRT, UMICAO, UEOS, UA #### [facility] [address] [place] [address]15 Immigration Patrol Inspector: Ronn Arias MDHemoglobin (Bld) [Mass/Vol]10.0 g/dLLow13.0-17.0 [facility]itt[facility] Medical CenterComment on above:Performed By: #### URNA, URTPRT, UMICAO, UEOS, UA #### [facility] [address] [place] [address] 87059 Immigration Patrol Inspector: FRANKIE RosenthalCH (RBC) [Entitic mass]28.2 viYpowwu19.2-33.5 [facility] Ritt[facility] Medical CenterComment on above:Performed By: #### URNA, URTPRT, UMICAO, UEOS, UA #### [facility] [address] [place] [address] Immigration Patrol Inspector: WILBERT RosenthalC (RBC) [Mass/Vol]33.3 g/pKDqkrbj12.4-34.8 [facility] Medical CenterComment on above:Performed By: #### URNA, URTPRT, UMICAO, UEOS, UA #### [facility] [address] [place] [address]999 Immigration Patrol Inspector: FRANKIE RosenthalCV (RBC) [Entitic vol]84.7 zWBofhqj93.6-102.9 [facility]itt[facility] Medical CenterComment on above:Performed By: #### URNA, URTPRT, UMICAO, UEOS, UA #### [facility] [employer] [address] [place] [address]25 Immigration Patrol Inspector: YUNI Rosenthal Automated0.0 per 100 WBCNormal0.0[facility] Rittman Medical CenterComment on above:Performed By: #### URNA, URTPRT, UMICAO, UEOS, UA #### [facility] [employer] [address] [place] [address] 12025 Immigration Patrol Inspector: Susan Rosenthal mean volume (Bld) [Entitic vol]11.0 fL Normal8.1-13.5[facility] Rittman Medical CenterComment on above:Performed By: #### URNA, URTPRT, UMICAO, UEOS, UA #### [facility] [address] [place] [address]329 Immigration Patrol Inspector: Leslie Rosenthal (Bld) [#/Vol]157 10*3/qNFgssql612-157 [facility]itt[facility] Medical CenterComment on above:Performed By: #### URNA, URTPRT, UMICAO, UEOS, UA #### [facility] [address] [place] [address] [phone] Immigration Patrol Inspector: CHASIDY RosenthalBC (Bld) [#/Vol]3.54 10*6/uLLow4.21-5.77[facility] Ritt[facility] Medical CenterComment on above:Performed By: #### URNA, URTPRT, UMICAO, UEOS, UA #### [facility] [address] [place], [place] [phone] Immigration Patrol Inspector: Ronn Arias MDWBC (Bld) [#/Vol]16.8 10*3/uLHigh3.5-11.3Mpremier healthy Patton State HospitalComment on above:Performed By: #### URNA, URTPRT, UMICAO, UEOS, UA #### [facility] [address] [place], [place] [phone] Immigration Patrol Inspector: Ronn Arias MDHematocrit (Bld) [Volume fraction]30.0 %Low40.7 - 50.3 %BON PARKWOOD HOSPITALHemoglobin (Bld) [Mass/Vol]10.0 g/dLLow13 - 17 g/dLBON [facility] HOSPITALH (RBC) [Entitic mass]28.2 pg25.2 - 33.5 pgBON MERCY MEMORIAL HOSPITALHC (RBC) [Mass/Vol]33.3 g/dL28.4 - 34.8 g/dLBON MERCY MEMORIAL HOSPITALV (RBC) [Entitic vol]84.7 fL82.6 - 102.9 fLLEWISGALE HOSPITAL ALLEGHANYNRBC Automated0.00.0 per 100 WBCBON PARKWOOD HOSPITALPlatelet distribution width (Bld) [Ratio]14.5 %High11.8 - 14.4 %[facility] Platelet mean volume (Bld) [Entitic vol]11.0 fL8.1 - 13.5 fLBON [facility] HEALTHPlatelets (Bld) [#/Vol]157 10*3/uLBON SECKETTERING HEALTH MAIN CAMPUSRBC (Bld) [#/Vol]3.54 10*6/uLLow4.21 - 5.77 m/uLBON PARKWOOD HOSPITALWBC (Bld) [#/Vol] 16.8 10*3/uLHighBON PARKWOOD HOSPITALCalcium, Ionicon 21-05-3167Ucjblox [Moles/Vol]0.95 mmol/LLow1.13-1.33[facility] Rittman Medical CenterComment on above:Performed By: #### URNA, URTPRT, UMICAO, UEOS, UA #### [facility] [address] [place] [address] Immigration Patrol Inspector: RAY Rosenthalalcium, Ionizedon [id number], Ionized 0.95 mmol/LLow1.13 - 1.33 mmol/LBON PARKWOOD HOSPITALInterpretation and review of laboratory resultsAbnormalWARREN MEMORIAL HOSPITALComp Metabolic Pr/rfx MGon 33-90-4586Adeioyerse [Mass/Vol]3.74 mg/dLHigh 0.70-1.20[facility] Rittman Medical CenterComment on above:Result Comment: ICTERIC SPECIMENPerformed By: #### URNA, URTPRT, UMICAO, UEOS, UA #### [facility] [address] [place] [address]13 Immigration Patrol Inspector: Ronn Arias MDGFR, Amer20 mL/minLow>60[facility]itt[facility] Medical CenterComment on above:Performed By: #### URNA, URTPRT, UMICAO, UEOS, UA #### [facility] [address] [place] [address] Immigration Patrol Inspector: Ronn Arias MDGFR,non Amer16 mL/minLow>60[facility]itt[facility] Medical CenterComment on above:Performed By: #### URNA, URTPRT, UMICAO, UEOS, UA #### [facility] [address] [place], [place] [phone] Immigration Patrol Inspector: Ronn Arias MD(cont.)[facility] Comment on above:Result Comment: Average GFR for 60-69 years old: 85 mL/min/1.73sq m Chronic Kidney Disease: <60 mL/min/1.73sq m Kidney failure: <15 mL/min/1.73sq m eGFR calculated using average adult body mass. Additional eGFR calculator available at: http://www.[employer]/multiple_crcl_2012.htmPerformed By: #### URNA, URTPRT, UMICAO, UEOS, UA #### [employer] [address] [place] [address] Immigration Patrol Inspector: Ronn Arias MDAlbumin [Mass/Vol]3.2 g/dLLow3.5-5.2MSharp Grossmont HospitalComment on above:Performed By: #### URNA, URTPRT, UMICAO, UEOS, UA #### [employer] [address] [place] [address] 32507 Immigration Patrol Inspector: Ronn Arias MDAlbumin/Glob Ratio1.0Ogbtdm4.0-2.5[facility] Rittman Medical CenterComment on above:Performed By: #### URNA, URTPRT, UMICAO, UEOS, UA #### [employer] [address] [place] [address] 06536 Immigration Patrol Inspector: Obdulia Rosenthalkaline [id number] U/EPflxak59-035ZpzhhSumma Health Wadsworth - Rittman Medical CenterComment on above:Performed By: #### URNA, URTPRT, UMICAO, UEOS, UA #### [employer] [address] [place] [address] 80167 Immigration Patrol Inspector: Ronn Arias MDALT [Catalytic activity/Vol]185 U/LHigh5-41[facility] Rittman Medical CenterComment on above:Performed By: #### URNA, URTPRT, UMICAO, UEOS, UA #### [employer] [address] [place] [address]328 Immigration Patrol Inspector: Ronn Madoff, MDAnion gap [Moles/Vol]12 mmol/LNormal9-17[facility] Rittman Medical CenterComment on above:Performed By: #### URNA, URTPRT, UMICAO, UEOS, UA #### [facility] [address] [place] [address] Immigration Patrol Inspector: Ronn Arias MDAST [Catalytic activity/Vol]103 U/LHigh<40MerLoma Linda University Medical Center-EastComment on above:Performed By: #### URNA, URTPRT, UMICAO, UEOS, UA #### [facility] [address] [place] [address] Immigration Patrol Inspector: Ronn Arias MDBilirubin [Mass/Vol]4.3 mg/dLHigh0.3-1.2MSharp Grossmont HospitalComment on above:Performed By: #### URNA, URTPRT, UMICAO, UEOS, UA #### [facility] [address] [place] [address] Immigration Patrol Inspector: RAY Rosenthalalcium [Mass/Vol]6.5 mg/dLLow8.6-10.4[facility] Rittman Medical CenterComment on above:Performed By: #### URNA, URTPRT, UMICAO, UEOS, UA #### [employer] [address] [place] [address]761 Immigration Patrol Inspector: Ronn Arias MDChloride [Moles/Vol]107 mmol/MTavmek64-904QjeyySumma Health Wadsworth - Rittman Medical CenterComment on above:Performed By: #### URNA, URTPRT, UMICAO, UEOS, UA #### [facility] [address] [place] [address]117 Immigration Patrol Inspector: Ronn Arias MDCO2 [Moles/Vol]19 mmol/LDfo21-01OumwxSumma Health Wadsworth - Rittman Medical CenterComment on above:Performed By: #### URNA, URTPRT, UMICAO, UEOS, UA #### [facility] [address] [place] [address]887 Immigration Patrol Inspector: Ronn Arias MDGlucose [Mass/Vol]109 mg/pNDhga54-93WbmtzSharp Grossmont HospitalComment on above:Performed By: #### URNA, URTPRT, UMICAO, UEOS, UA #### [facility] [address] [place] [address]147 Immigration Patrol Inspector: Ronn Arias MDPotassium [Moles/Vol]4.4 mmol/LNormal3.7-5.3 [facility]itt[facility] Medical CenterComment on above:Performed By: #### URNA, URTPRT, UMICAO, UEOS, UA #### [address] [address] Immigration Patrol Inspector: Ronn Arias MDProtein [Mass/Vol]5.8 g/dLLow6.4-8.3MSharp Grossmont HospitalComment on above:Performed By: #### URNA, URTPRT, UMICAO, UEOS, UA #### [place] [address] Immigration Patrol Inspector: GUILLERMO Rosenthalodium [Moles/Vol]138 mmol/QIztdam822-396EzqvjSumma Health Wadsworth - Rittman Medical CenterComment on above:Performed By: #### URNA, URTPRT, UMICAO, UEOS, UA #### [facility] [address] [place] [address] Immigration Patrol Inspector: Ronn Arias MDUrea nitrogen [Mass/Vol]59 mg/dLHigh8-23[facility] Rittman Medical CenterComment on above:Performed By: #### URNA, URTPRT, UMICAO, UEOS, UA #### [address] [address] Immigration Patrol Inspector: RAY Rosenthalreatinine [Mass/Vol]3.86 mg/dLHigh0.70-1.20 [facility] Rittman Medical CenterComment on above:Result Comment: ICTERIC SPECIMENPerformed By: #### URNA, URTPRT, UMICAO, UEOS, UA #### [facility] [address] [place] [address] Immigration Patrol Inspector: Ronn Arias MDGFR, Amer19 mL/minLow>60[facility] Rittman Medical CenterComment on above:Performed By: #### URNA, URTPRT, UMICAO, UEOS, UA #### [facility] [address] [place] [address] Immigration Patrol Inspector: Ronn Arias MDGFR,non Amer16 mL/minLow>60[facility] Rittman Medical CenterComment on above:Performed By: #### URNA, URTPRT, UMICAO, UEOS, UA #### [address] [address] Immigration Patrol Inspector: Ronn Arias MD(cont.)[facility] Comment on above:Result Comment: Average GFR for 60-69 years old: 85 mL/min/1.73sq m Chronic Kidney Disease: <60 mL/min/1.73sq m Kidney failure: <15 mL/min/1.73sq m eGFR calculated using average adult body mass. Additional eGFR calculator available at: http://www.[employer].com/multiple_crcl_2012.htmPerformed By: #### URNA, URTPRT, UMICAO, UEOS, UA #### [place] [address] [place] [address] Immigration Patrol Inspector: Obdulia Rosenthalbumin [Mass/Vol]3.0 g/dLLow3.5-5.2MSharp Grossmont HospitalComment on above:Performed By: #### URNA, URTPRT, UMICAO, UEOS, UA #### [address] [address] Immigration Patrol Inspector: Ronn Arias MDAlbumin/Glob Ratio1.7Slczab4.0-2.5[facility] Rittman Medical CenterComment on above:Performed By: #### URNA, URTPRT, UMICAO, UEOS, UA #### [facility] [address] [place] [address] Immigration Patrol Inspector: Obdulia Rosenthalkaline Phos98 U/HEirosp03-101SntlySumma Health Wadsworth - Rittman Medical CenterComment on above:Performed By: #### URNA, URTPRT, UMICAO, UEOS, UA #### [facility] [address] [place] [address] Immigration Patrol Inspector: Ronn Arias MDALT [Catalytic activity/Vol]191 U/LHigh5-41[facility] Rittman Medical CenterComment on above:Performed By: #### URNA, URTPRT, UMICAO, UEOS, UA #### [facility] [address] [place] [address] Immigration Patrol Inspector: Ronn Arias MDAnivicky gap [Moles/Vol]13 mmol/LNormal9-17[facility] Rittman Medical CenterComment on above:Performed By: #### URNA, URTPRT, UMICAO, UEOS, UA #### [facility] [address] [place] [address] Immigration Patrol Inspector: Ronn Arias MDAST [Catalytic activity/Vol]112 U/LHigh<40[facility] Medical CenterComment on above:Performed By: #### URNA, URTPRT, UMICAO, UEOS, UA #### [facility] [address] [place] [address] 72498 Immigration Patrol Inspector: Ronn Arias MDBilirubin [Mass/Vol]4.5 mg/dLHigh0.3-1.2[facility] State HospitalComment on above:Performed By: #### URNA, URTPRT, UMICAO, UEOS, UA #### [facility] [address] [place] [address] 83790 Immigration Patrol Inspector: RAY Rosenthalalcium [Mass/Vol]6.5 mg/dLLow8.6-10.4[facility] Rittman Medical CenterComment on above:Performed By: #### URNA, URTPRT, UMICAO, UEOS, UA #### [facility] [address] [place] [address] 52361 Immigration Patrol Inspector: RAY Rosenthalhloride [Moles/Vol]109 mmol/RWsyz68-605UqvpbSumma Health Wadsworth - Rittman Medical CenterComment on above:Performed By: #### URNA, URTPRT, UMICAO, UEOS, UA #### [facility] [address] [place] [address] 42979 Immigration Patrol Inspector: Ronn Arias MDCO2 [Moles/Vol]18 mmol/BIdw15-65EpjnpSumma Health Wadsworth - Rittman Medical CenterComment on above:Performed By: #### URNA, URTPRT, UMICAO, UEOS, UA #### [facility] [address] [place] [address] 80787 Immigration Patrol Inspector: Ronn Arias MDGlucose [Mass/Vol]106 mg/pKGngi49-46ManorSharp Grossmont HospitalComment on above:Performed By: #### URNA, URTPRT, UMICAO, UEOS, UA #### [facility] [address] [place] [address] 19551 Immigration Patrol Inspector: Ronn Arias MDPotassium [Moles/Vol]4.5 mmol/LNormal3.7-5.3 [facility]ittman Medical CenterComment on above:Performed By: #### URNA, URTPRT, UMICAO, UEOS, UA #### [facility] [address] [place] [address] 55398 Immigration Patrol Inspector: Ronn Arias MDProtein [Mass/Vol]5.5 g/dLLow6.4-8.3Mpremier healthy Patton State HospitalComment on above:Performed By: #### URNA, URTPRT, UMICAO, UEOS, UA #### [facility] [address] [place], [place] [phone] Immigration Patrol Inspector: GUILLERMO Rosenthalodium [Moles/Vol]140 mmol/AKkgecf803-045EownuSumma Health Wadsworth - Rittman Medical CenterComment on above:Performed By: #### URNA, URTPRT, UMICAO, UEOS, UA #### [facility] [address] [place] [address] Immigration Patrol Inspector: Ronn Arias MDUrea nitrogen [Mass/Vol]59 mg/dLHigh8-23Sum[facility] - Rittman Medical CenterComment on above:Performed By: #### URNA, URTPRT, UMICAO, UEOS, UA #### [facility] [address] [place] [address] Immigration Patrol Inspector: RAY Rosenthalomprehensive Metabolic Panel w/ Reflex to MGon [id number] [Mass/Vol]3.2 g/dLLow3.5 - 5.2 g/dLBON [facility] [employer] Albumin/Globulin [Mass ratio]1.2 {ratio}1 - 2.5BON SECPRAIRIEVILLE FAM[facility]ITAL HEALTHALP (Bld) [Catalytic activity/Vol]101 U/L40 - 129 U/LBON [facility]ITALY HEALTHALT [Catalytic activity/Vol]185 U/LHigh5 - 41 U/LBON [facility]ITALY HEALTHAnion gap [Moles/Vol]12 mmol/L9 - 17 mmol/LBON [facility]ITALY HEALTHAST [Catalytic activity/Vol]103 U/LHighNINF - 40 U/LBON [facility]ITALY HEALTHBilirubin [Mass/Vol]4.3 mg/dLHigh0.3 - 1.2 mg/dLBON [facility]ITALY HEALTHCalcium [Mass/Vol] 6.5 mg/dLLow8.6 - 10.4 mg/dLBON [facility]ITALY HEALTHChloride [Moles/Vol]107 mmol/L98 - 107 mmol/LBON PARKWOOD HOSPITALCO2 [Moles/Vol]19 mmol/LLow20 - 31 mmol/LBON [facility] HOSPITALCreatinine [Mass/Vol]3.74 mg/dLHigh0.7 - 1.2 mg/dL [facility] Centerment on above:ICTERIC SPECIMENFree PSA/Total PSA [Mass fraction]5.8 g/dLLow6.4 - 8.3 g/dLBON PARKWOOD HOSPITALGFR Qdawcftl13 mL/sxkHsc89 - PINF mL/minLEWISGALE HOSPITAL ALLEGHANYGFR Non- Gdjymkod84 mL/hudXtb75 - PINF mL/minBON PARKWOOD HOSPITALGFR/1.73 sq M.predicted MDRD (S/P/Bld) [Vol rate/Area][facility] on above:Average GFR for 60-69 years old: 85 mL/min/1.73sq m Chronic Kidney Disease: <60 mL/min/1.73sq m Kidney failure: <15 mL/min/1.73sq m eGFR calculated using average adult body mass. Additional eGFR calculator available at: http://www.[employer]/multiple_crcl_2012.htm Glucose [Mass/Vol]109 mg/bWYtpx06 - 99 mg/dLBON PARKWOOD [facility]OSPITAL Interpretation and review of laboratory resultsAbnormalLEWISGALE HOSPITAL ALLEGHANY Potassium [Moles/Vol]4.4 mmol/L3.7 - 5.3 mmol/LBON PARKWOOD HOSPITALSodium [Moles/Vol]138 mmol/L135 - 144 mmol/LBON PARKWOOD HOSPITALUrea nitrogen (BldV) [Mass/Vol]59 mg/dLHigh8 - 23 mg/dLBON [facility]GL[facility] MEMORIAL HOSPITALAlbumin [Mass/Vol]3 g/dLLow3.5 - 5.2 g/dLBON [facility] Albumin/Globulin [Mass ratio]1.2 {ratio}1 - 2.5BON PARKWOOD HOSPITALALP (Bld) [Catalytic activity/Vol]98 U/L40 - 129 U/LBON [facility]OD HOSPITALALT [Catalytic activity/Vol]191 U/LHigh5 - 41 U/LBON [facility]CY HEALTHAnion gap [Moles/Vol] 13 mmol/L9 - 17 mmol/LBON [facility]ITALY HEALTHAST [Catalytic activity/Vol]112 U/LHighNINF - 40 U/LBON [facility]ITALY HEALTHBilirubin [Mass/Vol]4.5 mg/dLHigh0.3 - 1.2 mg/dLBON [facility] MERCY HEALTHCalcium [Mass/Vol]6.5 mg/dLLow8.6 - 10.4 mg/dLBON [facility] MERCY HEALTHChloride [Moles/Vol]109 mmol/LHigh98 - 107 mmol/L [facility] HEALTHCO2 [Moles/Vol]18 mmol/LLow20 - 31 mmol/LBON [facility]ITALY HEALTHCreatinine [Mass/Vol]3.86 mg/dLHigh0.7 - 1.2 mg/dLBON [facility] HEALTHComment on above:ICTERIC SPECIMENFree PSA/Total PSA [Mass fraction]5.5 g/dLLow6.4 - 8.3 g/dLBON SECPROVIDENCE MOUNT CARMEL HOSPITALY HEALTHGFR Ucpctabh03 mL/nqdLzp83 - PINF mL/minBON [facility]OSPITALY HEALTHGFR Non- Psvupdlj47 mL/snrXik29 - PINF mL/minBON [facility] [employer] HEALTHGFR/1.73 sq M.predicted MDRD (S/P/Bld) [Vol rate/Area][facility] ALLEGHANYComment on above:Average GFR for 60-69 years old: 85 mL/min/1.73sq m Chronic Kidney Disease: <60 mL/min/1.73sq m Kidney failure: <15 mL/min/1.73sq m eGFR calculated using average adult body mass. Additional eGFR calculator available at: http://www.[employer].LaunchCyte/multiple_crcl_2012.htm Glucose [Mass/Vol]106 mg/lTOkxd94 - 99 mg/dLBON [facility] MERCY HEALTHPotassium [Moles/Vol]4.5 mmol/L3.7 - 5.3 mmol/LBON [facility] HEALTHSodium [Moles/Vol] 140 mmol/L135 - 144 mmol/LBON [facility] HEALTHUrea nitrogen (BldV) [Mass/Vol]59 mg/dLHigh8 - 23 mg/dLBON [facility] AND[facility] HOSPITALY HEALTHDifferentialon [id number]. Basophil0.03 k/uLNormal0.00-0.20[facility] Comment on above:Performed By: #### URNA, URTPRT, UMICAO, UEOS, UA #### [facility] [address] [place] [address]160 Immigration Patrol Inspector: MDAbs. GaloImm.Granulocyte0.10 k/uLNormal0.00-0.30[facility]itt[facility] Medical CenterComment on above:Performed By: #### URNA, URTPRT, UMICAO, UEOS, UA #### [facility] [address] [place] [address] 96538 Immigration Patrol Inspector: Mak Rosenthal.Neutrophil (Seg)14.48 k/uLHigh1.50-8.10[facility] Rittman Medical CenterComment on above:Performed By: #### URNA, URTPRT, UMICAO, UEOS, UA #### [facility] [address] [place] [address] 76530 Immigration Patrol Inspector: Ronn Arias MDBasophils/100 WBC (Bld)0 %Normal0-2MSharp Grossmont HospitalComment on above:Performed By: #### URNA, URTPRT, UMICAO, UEOS, UA #### [facility] [address] [place] [address] 55244 Immigration Patrol Inspector: PRANAY Rosenthalosinophils (Bld) [#/Vol]0.06 10*3/uLNormal 0.00-0.44[facility]itt[facility] Medical CenterComment on above:Performed By: #### URNA, URTPRT, UMICAO, UEOS, UA #### [facility] [address] [place] [address] 35258 Immigration Patrol Inspector: PRANAY Rosenthalosinophils/100 WBC (Bld)0 %Low1-4[facility]itt[facility] Medical CenterComment on above:Performed By: #### URNA, URTPRT, UMICAO, UEOS, UA #### [facility] [address] [place] [address] 40296 Immigration Patrol Inspector: Ronn Arias MDImmature granulocytes/100 WBC (Bld)1 %Nbqf7EebqcSumma Health Wadsworth - Rittman Medical CenterComment on above:Performed By: #### URNA, URTPRT, UMICAO, UEOS, UA #### [facility] [address] [place] [address] 12595 Immigration Patrol Inspector: Ronn Arias MDLymphocytes (Bld) [#/Vol]0.87 10*3/uLLow 1.10-3.70[facility]itt[facility] Medical CenterComment on above:Performed By: #### URNA, URTPRT, UMICAO, UEOS, UA #### [facility] [address] [place] [address] 43175 Immigration Patrol Inspector: Arias Rosenthalmphocytes/100 WBC (Bld)5 %Kvw25-11QjdhoSumma Health Wadsworth - Rittman Medical CenterComment on above:Performed By: #### URNA, URTPRT, UMICAO, UEOS, UA #### [facility] [address] [place] [address] 35382 Immigration Patrol Inspector: FRANKIE Rosenthalonocytes (Bld) [#/Vol]1.28 10*3/uLHigh0.10-1.20 [facility] Medical CenterComment on above:Performed By: #### URNA, URTPRT, UMICAO, UEOS, UA #### [facility] [address] [place] [address] 82352 Immigration Patrol Inspector: Ronn Arias MDMonocytes/100 WBC (Bld)8 %Normal3-12[facility]ittman Medical CenterComment on above:Performed By: #### URNA, URTPRT, UMICAO, UEOS, UA #### [facility] [address] [place], [place] [phone] Immigration Patrol Inspector: Ronn Arias MDNeutrophil (Seg)86 %Bcfu00-61RxmbfSumma Health Wadsworth - Rittman Medical CenterComment on above:Performed By: #### URNA, URTPRT, UMICAO, UEOS, UA #### [facility] [address] [place], [place] [phone] Immigration Patrol Inspector: CHASIDY RosenthalBC morphology finding Nom (Bld)ANISOCYTOSIS PRESENTNoOhioHealth Doctors HospitalComment on above:Performed By: #### URNA, URTPRT, UMICAO, UEOS, UA #### [facility] [address] [place], [place] [phone] Immigration Patrol Inspector: Ronn Arias MDAbsolute Eos #0.06[facility] Absolute Immature Granulocyte0.10[facility] HEALTHAbsolute Lymph #0.87Low [facility] HEALTHAbsolute Tucker #1.28HighBON [facility] MERCY HEALTHBasophils (Bld) [#/Vol]0.03 10*3/uLBON [facility] MERCY HEALTHBasophils/100 WBC (Bld)0 %0 - 2 %[facility] HEALTHEosinophils/100 WBC (Bld)0 %Low1 - 4 %[facility] HEALTHImmature granulocytes/100 WBC (Bld)1 %Ibbz1FJW [facility] Lymphocytes/100 WBC (Bld)5 %Low24 - 43 %[facility] HEALTHMonocytes/100 WBC (Bld)8 %3 - 12 %[facility] HEALTHRBC (Bld) [#/Vol]ANISOCYTOSIS PRESENTBON [facility] MERCY HEALTHSegmented neutrophils/100 WBC (Bld)86 %High36 - 65 %[facility] HEALTHSegs Ufnlxnae05.48HighBON [facility] Hemoglobin A1Con 55-13-4735Ugyvlaq [Mass/Vol]117 mg/dLNoOhioHealth Doctors HospitalComment on above:Result Comment: The ADA and AACC recommend providing the estimated average glucose result to permit better patient understanding of their HBA1c result.Performed By: #### URNA, URTPRT, UMICAO, UEOS, UA #### [facility] [address] [place], [place] [phone] Immigration Patrol Inspector: Ronn Arias MDHbA1c (Bld) [Mass fraction]5.7 %Normal4.0-6.0 [facility]itt[facility] Medical CenterComment on above:Performed By: #### URNA, URTPRT, UMICAO, UEOS, UA #### [facility] [address] [place], [place] [phone] Immigration Patrol Inspector: Ronn Arias MDGlucose [Mass/Vol]117 mg/dLBON PARKWOOD HOSPITALComment on above:The ADA and AACC recommend providing the estimated average glucose result to permit better patient understanding of their HBA1c result. HbA1c (Bld) [Mass fraction]5.7 %4 - 6 %[facility] Boom FinancialBON [facility] Boom FinancialHepatic Function Panelon [id number] [Mass/Vol]3.2 g/dLLow3.5 - 5.2 g/dLBON PARKWOOD HOSPITALAlbumin/Globulin [Mass ratio]1.3 {ratio}1 - 2.5BON PARKWOOD HOSPITALALP (Bld) [Catalytic activity/Vol]98 U/L40 - 129 U/LBON [facility]ARKWOOD HOSPITALALT [Catalytic activity/Vol]202 U/LHigh5 - 41 U/LBON PARKWOOD HOSPITALAST [Catalytic activity/Vol]117 U/LHighNINF - 40 U/LBON [facility] Boom FinancialBilirubin [Mass/Vol]4.4 mg/dLHigh0.3 - 1.2 mg/dLBON [facility] Boom FinancialBilirubin, Indirect0.3 mg/dL0 - 1 mg/dLBON [facility] Bilirubin.indirect [Mass/Vol]4.1 mg/dLHighNINF - 0.31 mg/dLBON PARKWOOD HOSPITALFree PSA/Total PSA [Mass fraction]5.6 g/dLLow6.4 - 8.3 g/dLBON PARKWOOD HOSPITALInterpretation and review of laboratory resultsAbnormalBON PARKWOOD HOSPITALLactate Dehydrogenaseon [id number] [Catalytic activity/Vol]214 U/JCzycre538-419TtouhSumma Health Wadsworth - Rittman Medical CenterComment on above:Performed By: #### URNA, URTPRT, UMICAO, UEOS, UA #### [facility] [address] [place] [address] [phone] Immigration Patrol Inspector: DESTINEY Rosenthal214 U/L135 - 225 U/LBON INDI[facility] HEALTH SERVICE HOSPITALLactate, Sepsison 30-13-6425Zowxga Acid,Sep Wbld1.2 mmol/LNormal0.5-1.9[facility] Ritt[facility] Medical CenterComment on above:Performed By: #### URNA, URTPRT, UMICAO, UEOS, UA #### [facility] [address] [place], [place] [phone] Immigration Patrol Inspector: Frances Rosenthalctic Acid, Sepsis, Whole Blood1.2 mmol/L0.5 - 1.9 mmol/LBON [facility] MEMORIAL HOSPITALLactic Acid,Sep Wbld 1.3 mmol/LNormal0.5-1.9[facility]itt[facility] Medical CenterComment on above: Performed By: #### URNA, URTPRT, UMICAO, UEOS, UA #### [employer] [address] [place] [address] [phone] Immigration Patrol Inspector: Frances Rosenthalctic Acid, Sepsis, Whole Blood1.3 mmol/L0.5 - 1.9 mmol/LBON [facility] MEMORIAL HOSPITALLactic Acid,Sep Wbld 0.9 mmol/LNormal0.5-1.9[facility] Medical CenterComment on above: Performed By: #### URNA, URTPRT, UMICAO, UEOS, UA #### [employer] [address] [place] [address] [phone] Immigration Patrol Inspector: Ronn Arias MDLactic Acid, Sepsis, Whole Blood0.9 mmol/L0.5 - 1.9 mmol/LBON [facility] COUNTY MEMORIAL HOSPITALLactic Acid,Sep Wbld 1.3 mmol/LNormal0.5-1.9[facility]itt[facility] Medical CenterComment on above: Performed By: #### URNA, URTPRT, UMICAO, UEOS, UA #### [employer] [address] [place], [place] [phone] Immigration Patrol Inspector: Ronn Arias MDLactic Acid, Sepsis, Whole Blood1.3 mmol/L0.5 - 1.9 mmol/LBON [facility] MEMORIAL HOSPITALLipaseon 01-01-2022 Lipase [Catalytic activity/Vol]1918 U/RYsvp95-09RjdjqSumma Health W[facility] - [facility] Center Comment on above:Performed By: #### URJENNYFER, CONORTPRT, UMICAO, UEOS, UA #### [employer] [address] [place] [address] Immigration Patrol Inspector: Ronn Arias MDLipase [Catalytic activity/Vol]1918 U/LHigh13 - 60 U/LBON [facility] [employer] FinancialLipid Panelon 52-30-2092Fzwyrtsdtmo [Mass/Vol]103 mg/dLNINF - 200 mg/dLBON PARKWOOD HOSPITALComment on above: Cholesterol Guidelines: <200 Desirable 200-240 Borderline >240 Undesirable Cholesterol in HDL [Mass/Vol]46 mg/dL40 - PINF mg/dLBON [facility] [employer] Comment on above: HDL Guidelines: <40 Undesirable 40-59 Borderline >59 Desirable Cholesterol in LDL [Mass/Vol]46 mg/dL0 - 130 mg/dLBON [facility] [employer] Comment on above: LDL Guidelines: <100 Desirable 100-129 Near to/above Desirable 130-159 Borderline >159 Undesirable Direct (measured) LDL and calculated LDL are not interchangeable tests. Cholesterol.total/Cholesterol in HDL [Mass ratio]2.2 {ratio}NINF - 5BON [facility] CENTERAdvent Health PartnersTriglyceride [Mass/Vol]53 mg/dLNINF - 150 mg/dLBON PARKWOOD HOSPITALComment on above: Triglyceride Guidelines: <150 Desirable 150-199 Borderline 200-499 High >499 Very high Based on AHA Guidelines for fasting triglyceride, January 2012. [facility] HOSPITALLipid Profileon [id number] [Mass/Vol]103 mg/dLNormal<200[facility]itt[facility] Medical CenterComment on above:Result Comment: Cholesterol Guidelines: <200 Desirable 200-240 Borderline >240 UndesirablePerformed By: #### URNA, URTPRT, UMICAO, UEOS, UA #### [employer] [address] [place] [address] 71555 Immigration Patrol Inspector: RAY Rosenthalholesterol in HDL [Mass/Vol]46 mg/dLNormal>40 [facility]itt[facility] Medical CenterComment on above:Result Comment: HDL Guidelines: <40 Undesirable 40-59 Borderline >59 DesirablePerformed By: #### URNA, URTPRT, UMICAO, UEOS, UA #### [employer] [address] [place] [address] 89374 Immigration Patrol Inspector: RAY Rosenthalholesterol in LDL [Mass/Vol]46 mg/dLNormal0-130 [facility] Medical CenterComment on above:Result Comment: LDL Guidelines: <100 Desirable 100-129 Near to/above Desirable 130-159 Borderline >159 Undesirable Direct (measured) LDL and calculated LDL are not interchangeable tests.Performed By: #### URNA, URTPRT, UMICAO, UEOS, UA #### [employer] [address] [place] [address] 13318 Immigration Patrol Inspector: Katie Rosenthalstkeron.total/Cholesterol in HDL [Mass ratio]2.2 {ratio}Normal<5[facility] Ritt[facility] Medical CenterComment on above: Performed By: #### URNA, URTPRT, UMICAO, UEOS, UA #### [employer] [address] [place] [address] [phone] Immigration Patrol Inspector: Ronn Arias MDTriglyceride [Mass/Vol]53 mg/dLNormal<150MerLoma Linda University Medical Center-EastComment on above:Result Comment: Triglyceride Guidelines: <150 Desirable 150-199 Borderline 200-499 High >499 Very high Based on AHA Guidelines for fasting triglyceride, January 2012.Performed By: #### URNA, URTPRT, UMICAO, UEOS, UA #### [facility] [address] [place] [address] 06121 Immigration Patrol Inspector: Alban Rosenthal Profileon [id number] [Mass/Vol]3.2 g/dLLow3.5-5.2[facility] State HospitalComment on above:Performed By: #### URNA, URTPRT, UMICAO, UEOS, UA #### [facility] [address] [place] [address] 05443 Immigration Patrol Inspector: Ronn Arias MDAlbumin/Glob Ratio1.4Dwxfsc8.0-2.5[facility] Ritt[facility] Medical CenterComment on above:Performed By: #### URNA, URTPRT, UMICAO, UEOS, UA #### [facility] [address] [place] [address] 70102 Immigration Patrol Inspector: Obdulia Rosenthalkaline Phos98 U/SBtchsg80-074MzwajSumma Health Wadsworth - Rittman Medical CenterComment on above:Performed By: #### URNA, URTPRT, UMICAO, UEOS, UA #### [facility] [address] [place] [address] Immigration Patrol Inspector: Ronn Arias MDALT [Catalytic activity/Vol]202 U/LHigh5-41[facility]itt[facility] Medical CenterComment on above:Performed By: #### URNA, URTPRT, UMICAO, UEOS, UA #### [facility] [address] [place] [address] Immigration Patrol Inspector: Ronn Arias MDAST [Catalytic activity/Vol]117 U/LHigh<40[facility] Rittman Medical CenterComment on above:Performed By: #### URNA, URTPRT, UMICAO, UEOS, UA #### [facility] [address] [place] [address] 97201 Immigration Patrol Inspector: Ronn Arias MDBilirubin [Mass/Vol]4.4 mg/dLHigh0.3-1.2MSharp Grossmont HospitalComment on above:Performed By: #### URNA, URTPRT, UMICAO, UEOS, UA #### [facility] [address] [place] [address] 53655 Immigration Patrol Inspector: Pamela Rosenthalirubin, Indirect0.3 mg/dLNormal0.00-1.00[facility]itt[facility] Medical CenterComment on above:Performed By: #### URNA, URTPRT, UMICAO, UEOS, UA #### [facility] [address] [place] [address] 91926 Immigration Patrol Inspector: Pamela Rosenthalirubin.indirect [Mass/Vol]4.1 mg/dLHigh<0.31 [facility] Medical CenterComment on above:Performed By: #### URNA, URTPRT, UMICAO, UEOS, UA #### [facility] [address] [place] [address] 18154 Immigration Patrol Inspector: MARQUEZ Rosenthalrotein [Mass/Vol]5.6 g/dLLow6.4-8.3MSharp Grossmont HospitalComment on above:Performed By: #### URNA, URTPRT, UMICAO, UEOS, UA #### [facility] [address] [place] [address] 01371 Immigration Patrol Inspector: MEDARDO Rosenthal ABDOMEN WO CONTRAST MRCPon [id number] ABDOMEN WO CONTRAST MRCPEXAMINATION: MRI OF THE ABDOMEN WITHOUT CONTRAST AND [...] Signed by: Aliya Salgado MD 01/01/22 Final resultNormalMerLoma Linda University Medical Center-East1. Christen pancreatic inflammation suggestive of acute pancreatitis. No pancreatic duct dilatation. 2. Cholelithiasis without evidence for acute cholecystitis, biliary dilatation or choledocholithiasis. [facility] RIS CONSOLIDATEDEXAMINATION: MRI OF THE ABDOMEN WITHOUT CONTRAST AND [...] findings do not require dedicated imaging follow-up. [facility] Aliya Smumers MD - 01/01/2022 EXAMINATION: MRI OF THE [...] for acute cholecystitis, biliary dilatation or choledocholithiasis. [employer] Phone: radiology Study observation (narrative)[employer] Phone: MRI ABDOMEN WO CONTRAST MRCPOrdered By: Aliya Salgado on [id number] Phone: Magnesiumon [id number] [Mass/Vol]1.7 mg/dL Normal1.6-2.6[facility]ton State HospitalComment on above:Performed By: #### URNA, URTPRT, UMICAO, UEOS, UA #### [employer] [address] [place] [address] Immigration Patrol Inspector: Ronn Arias MDMagnesium [Mass/Vol]1.7 mg/dL1.6 - 2.6 mg/dLBON B[facility] OCOTILLO MEDICAL CENTERGLOBALBASED TECHNOLOGIESMagnesium [Mass/Vol]1.7 mg/dLNormal1.6-2.6[facility] State HospitalComment on above:Performed By: #### URNA, URTPRT, UMICAO, UEOS, UA #### [employer] [address] [place] [address] Immigration Patrol Inspector: Ronn Arias MDMagnesium [Mass/Vol]1.7 mg/dL1.6 - 2.6 mg/dLBON XeccedNo Panel Informationon [id number] and review of laboratory resultsAbnormalBOURNEWOOD HOSPITALGLOBALBASED TECHNOLOGIESHENRICO DOCTORS' HOSPITAL—HENRICO CAMPUSAdvent Health PartnersBOURNEWOOD HOSPITALGLOBALBASED TECHNOLOGIESInterpretation and review of laboratory resultsAbnormRoyal C. Johnson Veterans [facility] [id number] Coag (PPP) [Relative time]1.2 {INR}NormalSumma Health Wadsworth - Rittman Medical CenterComment on above:Result Comment: Therapeutic Range: Moderate Anticoagulant Intensity: INR = 2.0-3.0 High Anticoagulant Intensity: INR = 2.5-3.5Performed By: #### URNA, URTPRT, UMICAO, UEOS, UA #### [employer] [facility] [place], [place] [phone] Immigration Patrol Inspector: LUKE Rosenthal Coag (PPP) [Time]12.7 sHigh9.1-12.3Mer[facility] State HospitalComment on above:Performed By: #### URNA, URTPRT, UMICAO, UEOS, UA #### [employer] [address] [place] [address] [phone] Immigration Patrol Inspector: MARQUEZ Rosenthalhosphoruson [id number] [Mass/Vol]3.0 mg/dL2.5 - 4.5 mg/dLBON PARKWOOD HOSPITALPhosphorus, Inorg.on 01-01-2022 Phosphorus, Inorg.3.0 mg/dLNormal2.5-4.5[facility] Rittman Medical CenterComment on above:Performed By: #### URNA, URTPRT, UMICAO, UEOS, UA #### [employer] [address] [place] [address] [phone] Immigration Patrol Inspector: MARQUEZ Rosenthalrocalcitoninon [id number] ng/mLHigh<0.09[facility] Rittman Medical CenterComment on above:Result Comment: Suspected Sepsis: <0.50 ng/mL Low likelihood [...] entered into the Change in Procalcitonin Calculator (www.dwukcl-yry-rovqyalkbt.LaunchCyte) to determine the patient's Mortality Risk Prognosis In healthy neonates, plasma Procalcitonin (PCT) concentrations increase gradually after , reaching peak values at about 24 hours of age then decrease to normal values below 0.5 ng/mL by 48-72 hours of age.Performed By: #### URNA, URTPRT, UMICAO, UEOS, UA #### [employer] [facility] [place] [address] Immigration Patrol Inspector: Ronn Arias MDInterpretation and review of laboratory results AbnormalLEWISGALE HOSPITAL ALLEGHANYProcalcitonin67.66 ng/mLHighNINF - 0.09 ng/mLLEWISGALE HOSPITAL ALLEGHANYComment on above: Suspected Sepsis: <0.50 ng/mL Low likelihood of sepsis. 0.50-2.00 ng/mL Increased likelihood of sepsis. Antibiotics encouraged. >2.00 ng/mL High risk of sepsis/shock. Antibiotics strongly encouraged. Suspected Lower Resp Tract Infections: <0.24 ng/mL Low likelihood of bacterial infection. >0.24 ng/mL Increased likelihood of bacterial infection. Antibiotics encouraged. With successful antibiotic therapy, PCT levels should decrease rapidly. (Half- life of 24 to 36 hours.) Procalcitonin values from samples collected within the first 6 hours of systemic infection may still be low. Retesting may be indicated. Values from day 1 and day 4 can be entered into the Change in Procalcitonin Calculator (www.yynyds-yiq-mypgcwzmzs.LaunchCyte) to determine the patient's Mortality Risk Prognosis In healthy neonates, plasma Procalcitonin (PCT) concentrations increase gradually after , reaching peak values at about 24 hours of age then decrease to normal values below 0.5 ng/mL by 48-72 hours of age. Protein, urine, randomon [id number] (U) [Mass/Vol]59 mg/dLBON PARKWOOD HOSPITALComment on above:No normal range established.[facility] ALLEGHANYProtime-INRon 30-28-7165OUH Coag (Bld) [Relative time]1.2 {INR}[facility] ALLEGHANYCompromedica [facility] on above: Therapeutic Range: Moderate Anticoagulant Intensity: INR = 2.0-3.0 High Anticoagulant Intensity: INR = 2.5-3.5 Interpretation and review of laboratory resultsAbnormalLEWISGALE HOSPITAL ALLEGHANY PT Coag (PPP) [Time]12.7 sHighBON [facility] Sodium, Random Uron [id number] (U) [Moles/Vol]37 mmol/LNormalSumma Health Wadsworth - Rittman Medical CenterComment on above:Result Comment: No normal range established.Performed By: #### URNA, URTPRT, UMICAO, UEOS, UA #### [address] [place] [address] Immigration Patrol Inspector: GUILLERMO Rosenthalodium, urine, randomon 32-71-1082Gfhgix (U) [Moles/Vol]37 mmol/LBON PARKWOOD HOSPITALComment on above:No normal range established.[facility] ALLEGHANYTriglycerideon 78-96-9562Mgicrbmkojuq [Mass/Vol]58 mg/dLNINF - 150 mg/dLBON PARKWOOD HOSPITALComment on above: Triglyceride Guidelines: <150 Desirable 150-199 Borderline 200-499 High >499 Very high Based on AHA Guidelines for fasting triglyceride, January 2012. Triglycerideson 11-57-6898Olkznakxfpip [Mass/Vol]58 mg/dLNormal<150Sum[facility] Rittman Medical CenterComment on above:Result Comment: Triglyceride Guidelines: <150 Desirable 150-199 Borderline 200-499 High >499 Very high Based on AHA Guidelines for fasting triglyceride, January 2012.Performed By: #### URNA, URTPRT, UMICAO, UEOS, UA #### [address] [place], [place] [id number] Immigration Patrol Inspector: Mark Rosenthal [id number], High Sens19 ng/L Normal0-22Sum[facility] Rittman Medical CenterCompromedica cold[facility] on above:Result Comment: High Sensitivity Troponin values cannot be compared with other Troponin methodologies. Patients with high levels of Biotin oral intake (i.e >5mg/day) may have falsely decreased Troponin levels. Samples collected within 8 hours of biotin intake may require additional information for diagnosis.Performed By: #### TAMI GRAY UMICAO, UEOS, UA #### [address] [place], [place] [id number] Immigration Patrol Inspector: Joni Rosenthal High Njndycprxsb83 ng/L0 - 22 ng/LBON PARKWOOD HOSPITALCompromedica cold[facility] on above: High Sensitivity Troponin values cannot be compared with other Troponin methodologies. Patients with high levels of Biotin oral intake (i.e >5mg/day) may have falsely decreased Troponin levels. Samples collected within 8 hours of biotin intake may require additional information for diagnosis. [facility] CENTERSpot Mobile International HEALTHTroponin, High Sens17 ng/LNormal0-22MerLoma Linda University Medical Center-EastCompromedica cold[facility] on above:Result Comment: High Sensitivity Troponin values cannot be compared with other Troponin methodologies. Patients with high levels of Biotin oral intake (i.e >5mg/day) may have falsely decreased Troponin levels. Samples collected within 8 hours of biotin intake may require additional information for diagnosis.Performed By: #### TAMI GRAY UMICAO, UEOS, UA #### [address] [place], [place] [id number] Immigration Patrol Inspector: Joni Rosenthal High Wuhnckhlcfw18 ng/L0 - 22 ng/LBON [facility] on above: High Sensitivity Troponin values cannot be compared with other Troponin methodologies. Patients with high levels of Biotin oral intake (i.e >5mg/day) may have falsely decreased Troponin levels. Samples collected within 8 hours of biotin intake may require additional information for diagnosis. [facility] MEDICAL CENTERTeleDNAY HEALTHTroponin, High Sens18 ng/LNormal0-22[facility] State HospitalComment on above:Result Comment: High Sensitivity Troponin values cannot be compared with other Troponin methodologies. Patients with high levels of Biotin oral intake (i.e >5mg/day) may have falsely decreased Troponin levels. Samples collected within 8 hours of biotin intake may require additional information for diagnosis.Performed By: #### URNA, URTPRT, UMICAO, UEOS, UA #### [facility] [address] [place], [place] [address] Immigration Patrol Inspector: Joni Rosenthal, High Sens18 ng/LNormal0-22MerLoma Linda University Medical Center-EastComment on above:Result Comment: High Sensitivity Troponin values cannot be compared with other Troponin methodologies. Patients with high levels of Biotin oral intake (i.e >5mg/day) may have falsely decreased Troponin levels. Samples collected within 8 hours of biotin intake may require additional information for diagnosis.Performed By: #### URNA, URTPRT, UMICAO, UEOS, UA #### [facility] [address] [place], [place] 3[address] Immigration Patrol Inspector: Joni Rosenthal High Fclsxrxzrwx27 ng/L0 - 22 ng/LBON [facility] HOSPITALCompromedica cold[facility] on above: High Sensitivity Troponin values cannot be compared with other Troponin methodologies. Patients with high levels of Biotin oral intake (i.e >5mg/day) may have falsely decreased Troponin levels. Samples collected within 8 hours of biotin intake may require additional information for diagnosis. B[facility]OD HOSPITALTropopeewee, High Rkuvzyendra04 ng/L0 - 22 ng/LBON [facility]OD HOSPITALComment on above: High Sensitivity Troponin values cannot be compared with other Troponin methodologies. Patients with high levels of Biotin oral intake (i.e >5mg/day) may have falsely decreased Troponin levels. Samples collected within 8 hours of biotin intake may require additional information for diagnosis. Troponin, High Sens18 ng/LNormal0-22[facility] HospitalCompromedica [facility] on above:Result Comment: High Sensitivity Troponin values cannot be compared with other Troponin methodologies. Patients with high levels of Biotin oral intake (i.e >5mg/day) may have falsely decreased Troponin levels. Samples collected within 8 hours of biotin intake may require additional information for diagnosis.Performed By: #### URNA, URTPRT, SILVESTRE ULillyOS, UA #### [facility] [address] [place] [address] Immigration Patrol Inspector: Joni Rosenthal, High Sens17 ng/LNormal0-22[facility] Ritt[facility] Medical CenterCompromedica cold[facility] on above:Result Comment: High Sensitivity Troponin values cannot be compared with other Troponin methodologies. Patients with high levels of Biotin oral intake (i.e >5mg/day) may have falsely decreased Troponin levels. Samples collected within 8 hours of biotin intake may require additional information for diagnosis.Performed By: #### URNA, URTPRT, SILVESTRE ULillyOS, UA #### [facility] [address] [place], [place] [id number] Immigration Patrol Inspector: Joni Rosenthal, High Xvhzquqwzum42 ng/L0 - 22 ng/LBON [facility] HOSPITALCompromedica [facility] on above: High Sensitivity Troponin values cannot be compared with other Troponin methodologies. Patients with high levels of Biotin oral intake (i.e >5mg/day) may have falsely decreased Troponin levels. Samples collected within 8 hours of biotin intake may require additional information for diagnosis. [facility] ALLEGHANYTroponin, High Sens15 ng/LNormal0-22[facility] HospitalCompromedica [facility] on above:Result Comment: High Sensitivity Troponin values cannot be compared with other Troponin methodologies. Patients with high levels of Biotin oral intake (i.e >5mg/day) may have falsely decreased Troponin levels. Samples collected within 8 hours of biotin intake may require additional information for diagnosis.Performed By: #### URNA, URTPRT, UMICAO, ULillyOS, UA #### [facility] [address] [place], [place] [id number] Immigration Patrol Inspector: Joni Rosenthal, High Vrioipkhfsd00 ng/L0 - 22 ng/LBON [facility] on above: High Sensitivity Troponin values cannot be compared with other Troponin methodologies. Patients with high levels of Biotin oral intake (i.e >5mg/day) may have falsely decreased Troponin levels. Samples collected within 8 hours of biotin intake may require additional information for diagnosis. [facility] TheatreCHILLICOTHE HOSPITALTroponin, High Qldrbrfcgwb70 ng/L0 - 22 ng/LBON [facility]OSPITALComment on above: High Sensitivity Troponin values cannot be compared with other Troponin methodologies. Patients with high levels of Biotin oral intake (i.e >5mg/day) may have falsely decreased Troponin levels. Samples collected within 8 hours of biotin intake may require additional information for diagnosis. [facility] ALLEGHANYUA w/Reflex Cultureon [id number], SemiQt,UrMOD AbnormalNEGMerLoma Linda University Medical Center-EastComment on above:Performed By: #### URNA, URTPRT, UMICAO, UEOS, UA #### [facility] [address] [place] [address] Immigration Patrol Inspector: Jeanette Rosenthal UrineSMALLAbnormalNEGSumma Health Wadsworth - Rittman Medical CenterComment on above:Performed By: #### URNA, URTPRT, UMICAO, UEOS, UA #### [facility] [address] [place] [address] Immigration Patrol Inspector: RAY Rosenthallarity (U)TurbidAbnormalCLEARMercChildren's Hospital and Health CenterComment on above:Performed By: #### URNA, URTPRT, UMICAO, UEOS, UA #### [facility] [address] [place] [address] Immigration Patrol Inspector: RAY Rosenthalolor (U)Dark YellowAbnormalYELMerLoma Linda University Medical Center-EastComment on above:Performed By: #### URNA, URTPRT, UMICAO, UEOS, UA #### [facility] [address] [place] [address] Immigration Patrol Inspector: Josr Rosenthalose Ql (U)NegativeNormalNEGMerLoma Linda University Medical Center-EastComment on above:Performed By: #### URNA, URTPRT, UMICAO, UEOS, UA #### [facility] [address] [place] [address] Immigration Patrol Inspector: Ronn Arias MDKetones Ql (U)NegativeNormalNEGSumma Health Wadsworth - Rittman Medical CenterComment on above:Performed By: #### URNA, URTPRT, UMICAO, UEOS, UA #### [facility] [address] [place] [address] Immigration Patrol Inspector: Ronn Arias MDLeukocyte esterase Test strip Ql (U)Negative NormalNEGSumma Health Wadsworth - Rittman Medical CenterComment on above:Performed By: #### URNA, URTPRT, UMICAO, UEOS, UA #### [facility] [address] [place] [address] Immigration Patrol Inspector: Rupal Rosenthaltrite,UrNegativeNormalNEGSumma Health Wadsworth - Rittman Medical CenterComment on above:Performed By: #### URNA, URTPRT, UMICAO, UEOS, UA #### [facility] [address] [place] [address] Immigration Patrol Inspector: MARQUEZ Rosenthal,Ur5.9Nowloa4.0-8.0Sum[facility] Ritt[facility] Medical CenterComment on above:Performed By: #### URNA, URTPRT, UMICAO, UEOS, UA #### [facility] [address] [place] [address] Immigration Patrol Inspector: Yoko Rosenthal Ql (U)1+AbnormalNEGSumma Health Wadsworth - Rittman Medical CenterComment on above:Performed By: #### URNA, URTPRT, UMICAO, UEOS, UA #### [facility] [address] [place] [address] Immigration Patrol Inspector: GUILLERMO Rosenthalpec. [place],Ur1.753Llqaxi2.005-1.030[facility] Ritt[facility] Medical CenterComment on above:Performed By: #### URNA, URTPRT, UMICAO, UEOS, UA #### [facility] [address] [place], [place] [address] Immigration Patrol Inspector: Ronn Arias MDUrobilkeanugen,UrNormalNormalNORMMercy Patton State HospitalComment on above:Performed By: #### URNA, URTPRT, UMICAO, UEOS, UA #### [facility] [address] [place], [place] [address] Immigration Patrol Inspector: Ronn Arias MDUrinalysis with Reflex to Cultureon 01-01-2022 Bilirubin UrineMODAbnormalNEGATIVEBON SECOURS MERCY HEALTHColor, UADark Yellow AbnormalYellowBON SECOURS MERCY HEALTHGlucose, UrNegativeNEGATIVEBON SECOURS MERCY HEALTHInterpretation and review of laboratory resultsAbnormalBON SECOURS MERCY HEALTHKetones Ql (U)NegativeNEGATIVEBON SECOURS MERCY HEALTHLeukocyte esterase Test strip Ql (U)NegativeNEGATIVEBON SECOURS MERCY HEALTHNitrite, Urine NegativeNEGATIVEBON SECOURS MERCY HEALTHpH, UA5.05 - 8[facility] Protein, UA1+AbnormalNEGATIVEBON SECOURS MERCY HEALTHSpecific [place], UA1.013 1.005 - 1.03[facility] HEALTHTurbidity UATurbidAbnormalClearBON SECOURS MERCY HEALTHUrine HgbSMALLAbnormalNEGATIVEBON SECOURS MERCY HEALTHUrobilinogen, UrineNormalNormalBON SECOURS MERCY HEALTHBON SEC[facility] MERCY HEALTHUrinalysis, Microon [id number] UA20 TO 50B[facility] HEALTHCasts UACOARSELY GRANULARBON SECOURS MERCY HEALTHEpithelial Cells UA5 TO 10B[facility] HEALTHRBC, UA10 TO 20B[facility] HEALTHWBC, UA10 TO 20B[facility] HEALTHBON SECOURS MERCY HEALTHUrinalysis,Microon [id number] TO 50Normal 0-2[facility] State HospitalComment on above:Result Comment: COARSELY GRANULARPerformed By: #### URNA, URTPRT, UMICAO, UEOS, UA #### [facility] [address] [place] [address] Immigration Patrol Inspector: Ronn Arias MDEpithelial cells LM Ql (Urine sed)5 TO 10Normal 0-5[facility]itt[facility] Medical CenterComment on above:Performed By: #### URNA, URTPRT, UMICAO, UEOS, UA #### [facility] [address] [place] [address] Immigration Patrol Inspector: Ronn Arias MDUrine RBC's10 TO 36Bozzcq2-1Diroi [facility] State HospitalComment on above:Performed By: #### URNA, URTPRT, UMICAO, UEOS, UA #### [facility] [address] [place] [address] Immigration Patrol Inspector: Chrissy Rosenthal WBC's10 TO 16Saupon7-0OmbuhSumma Health Wadsworth - Rittman Medical CenterComment on above:Performed By: #### URNA, URTPRT, UMICAO, UEOS, UA #### [facility] [address] [place] [address] Immigration Patrol Inspector: GIANLUCA Rosenthal AUTO DIFFon 51-70-4836BUBO #0.1 103/ulNormal 0.0-0.1[facility] - AkronComment on above:Performed By: #### HSTROPN #### [facility] [address] [place] [address] Dr. Kulwant Starksphils/100 WBC (Bld)0.2 %Normal0.2-2.0The [facility] Comment on above:Performed By: #### HSTROPN #### [facility] [address] [place] [address] Dr. Kulwant Radford #0.0 103/ulNormal0.0-0.7The [facility]aritan HospitalComment on above: Performed By: #### HSTROPN #### [facility] [address] [address] [address] Kulwant Sellersosinophils/100 WBC (Bld)0.0 %Critically low0.9-7.0The [facility]aritan HospitalComment on above:Performed By: #### HSTROPN #### [facility] [address] [place] [address] Dr. Kulwant Sellersrythrocyte distribution width (RBC) [Ratio]14.4 %Xkaatp16.0-15.0 The [facility]itan HospitalComment on above:Performed By: #### HSTROPN #### [facility] [address] [place] [address] Dr. Kulwant BrennanHematocrit (Bld) [Volume fraction]37.9 %Critically low42.0-54.0 [facility] - AkronComment on above:Performed By: #### HSTROPN #### [facility] [address] [place] [address] Dr. Kulwant BrennanHemoglobin (Bld) [Mass/Vol]12.2 g/dLCritically low14.0-18.0[facility] - AkronComment on above:Performed By: #### HSTROPN #### [facility] [address] [place] [address] Dr. Kulwant Coronado #0.16 10e3/ulCritically high0.00-0.03[facility] Comment on above:Performed By: #### HSTROPN #### [facility] [address] [place] [address] Dr. Kulwant Coronado %0.6 %Critically high0.0-0.5The [facility] Hospitalment on above:Performed By: #### HSTROPN #### [facility] [address] [place] [address] Dr. Kulwant Griffith #0.7 103/ulCritically low1.2-3.8The [facility] Comment on above:Performed By: #### HSTROPN #### [facility] [address] [place] [address] Dr. Kulwant Hallmphocytes/100 WBC (Bld)2.9 %Critically low20.5-60.0The [facility]ar[facility] HospitalComment on above:Performed By: #### HSTROPN #### [facility] [address] [place] [address] Dr. Kulwant Camacho DIFF REQNONormalThe [facility]aritan HospitalComment on above: Performed By: #### HSTROPN #### [facility] [address] [place] [address] Dr. Kulwant Wilkinson (RBC) [Entitic mass]27.7 cfIqpkig65.9-34.0The [facility] HospitalComment on above:Performed By: #### HSTROPN #### [facility] [address] [place] [address] Dr. Kulwant Wilkinson (RBC) [Mass/Vol]32.2 g/cWYmdhom31.9-35.2The [facility] HospitalComment on above:Performed By: #### HSTROPN #### [facility] [address] [place] [address] Dr. Kulwant Foley (RBC) [Entitic vol]86.1 jCMrquua54.0-94.0The [facility] HospitalComment on above:Performed By: #### HSTROPN #### [facility] [address] [place] [address] Dr. Kulwant Aguirre #1.6 103/ulCritically high0.3-0.8ThPaulding County Hospital Comment on above:Performed By: #### HSTROPN #### [facility] [address] [place] [address] Dr. Kulwant Malcolmocytes/100 WBC (Bld)6.4 %Normal1.7-12.0[facility] Comment on above:Performed By: #### HSTROPN #### [facility] [address] [place] [address] Dr. Kulwant Mena #22.8 103/ulCritically high1.4-6.5The [facility] Comment on above:Performed By: #### HSTROPN #### [facility] [address] [place] [address] Dr. Kulwant Plasenciautrophils/100 WBC (Bld)89.9 %Critically high43.0-75.0The [facility]aritan HospitalComment on above:Performed By: #### HSTROPN #### [facility] [address] [place] [address] Dr. Kulwant Díazlet mean volume (Bld) [Entitic vol]10.0 fLNormal9.5-13.5The [facility]aritan HospitalComment on above:Performed By: #### HSTROPN #### [facility] [address] [place] [address] Dr. Kulwant BrennanPLT211 103/eaTeaocu069-830Ytw [facility] HospitalComment on above: Performed By: #### HSTROPN #### [facility] [address] [place] [address] Dr. Kulwant BrennanRBC4.40 106/ulCritically low4.70-6.10The [facility] HospitalComment on above:Performed By: #### HSTROPN #### [facility] [address] [place] [address] Dr. Kulwant BrennanWBC25.3 103/ulCritically high4.0-11.0The [facility]itan HospitalComment on above:Performed By: #### HSTROPN #### [facility] [address] [place] [address] Dr. Kulwant Mukherjee BLOODon 97-51-8945Ebqeyoecpgg examination of blood, cultureCulture Observations: NO GROWTH AT 5 DAYS.NormalThe [facility] Hospitalment on above:Performed By: #### BLDCX2 ####[facility] [address] [address]Dr. Kulwant BrennanPerformed By: #### BLDCX1 ####[facility] [address] [place], [place] [address]Dr. Kulwant Mukherjee URINE on 24-64-7259WCEOJHB URINECulture Observations: MODERATE GROWTH OF MIXED SKIN MITA. NO POTENTIAL PATHOGENS SEEN.NormalThe [facility]aritan HospitalComment on above:Performed By: #### URCX ####[facility] [address] [id number]. Kulwant ChangCovid-19 PCR (CVDTB)on 73-40-1160FCJP-CoV-2 (COVID-19) RNA MIKE+probe Ql (Unsp spec)Not detectedNormalNOT DETECTEDThe [facility]itan HospitalComment on above:Result Comment: When diagnostic testing is negative, the [...] for this test is supported by the [place] of Health and Human Service's declaration that circumstances exist to justify the emergency use of in vitro diagnostics for the detection and/or diagnosis of the virus that causes COVID-19. This EUA will remain in effect for the duration of the COVID-19 declaration justifying emergency of IVDs, unless it is terminated or revoked by the FDA (after which the test may no longer be used).Performed By: #### CVDTBH ####[facility] [address] [place], [place] [address]Dr. Kulwant ChangER URINE PROFILEon 79-71-6330Uriaamesi Ql (U)MODERATE AbnormalNEGATIVEThe [facility]itan HospitalComment on above:Performed By: #### ANA LAURA IQBAL ####[facility] [address] [place] [address]Ys. Kulwant ChangClarity (U)CLEARNormalCLEARThe [facility]itan HospitalComment on above:Performed By: #### ANA LAURA IQBAL ####[facility] [address] [place], [place] [address]Dr. Kulwant ChangColor (U)DK. ORANGEAbnormalYELLOW The [facility] Samaritan HospitalComment on above:Performed By: #### ANA LAURA IQBAL ####[facility] [address] [place], [place] [address]Dr. Yilan ChangERUAHDA micrscopic examination will be performed if indicated.Normal The [facility]aritan HospitalComment on above:Performed By: #### ANA LAURA IQBAL ####[facility] [address] [address]Dr. Yilan ChangGlucose Ql (U)NegativeNormalNEGATIVESelect Medical Specialty Hospital - AkronComment on above:Performed By: #### ANA LAURA IQBAL ####[facility] [address] [address]Dr. Yilan ChangHemoglobin Ql (U)SMALLAbnormal NEGATIVESelect Medical Specialty Hospital - AkronComment on above:Performed By: #### ANA LAURA IQBAL ####[facility] [address] Yilan ChangKetones Ql (U)NegativeNormalNEGATIVESelect Medical Specialty Hospital - AkronComment on above:Performed By: #### ANA LAURA IQBAL ####[facility] [address] Yilan ChangLEUKOCYTESNegativeNormalNEGATIVESelect Medical Specialty Hospital - AkronComment on above:Performed By: #### ANA LAURA IQBAL ####[facility] [address] Yilan Brennan Nitrite Ql (U)PositiveAbnormalNEGATIVESelect Medical Specialty Hospital - AkronComment on above: Performed By: #### ANA LAURA IQBAL ####[facility] [address] [address]Dr. Yilan ChangpH (U)5.5 [pH]Normal5-9[facility] - AkronComment on above:Performed By: #### ANA LAURA IQBAL ####[facility] [address] [address]Dr. Yilan ChangProtein (U) [Mass/Vol]100 mg/dLAbnormalNEGATIVE/ TRACEThe [facility]aritan HospitalComment on above: Performed By: #### ANA LAURA IQBAL ####[facility] Cdfdzpcvvg9730 [address] Kulwant BrennanSPEC GRAVITY1.145Wpddvw3.005-<=1.025The [facility]itan HospitalComment on above:Performed By: #### ANA LAURA IQBAL ####[facility] [address] [place] [address]Dr. Kulwant BrennanUR MICRO INDINDICATEDNormalThe [facility]aritan HospitalComment on above:Performed By: #### ANA LAURA IQBAL ####[facility] [address] [place] [address]Dr. Kulwant BrennanUrobilinogen Qn (U)1.0 {Luis'U}/dLNormal0.2 - 1.0The [facility] HospitalComment on above:Performed By: #### ANA LAURA IQBAL ####[facility] Nlbfgnhstp8336 [address] Kulwant Brennan LACTATE/LACTIC ACIDon 53-86-5359Tnluofz [Moles/Vol]1.6 mmol/LNormal0.4-1.9The [facility] HospitalComment on above:Performed By: #### LACT #### [facility] [address] [place] [address] Dr. Kulwant BrennanLactate [Moles/Vol]2.4 mmol/LCritically high0.4-1.9The [facility] HospitalComment on above:Performed By: #### LACT ####[facility] Yqm[address] [place], [place] [address]Dr. Kulwant BrennanLIPASEon 85-48-6303Mtjugl [Catalytic activity/Vol]6610.0 U/LCritically high73.0-393.0The [facility] HospitalComment on above:Performed By: #### LACT #### [facility] [address] [place] [address] Dr. Kulwant Lambert 14(COMP METB)on 77-73-2685Xlpmwyi [Mass/Vol]3.3 g/dL Critically low3.4-5.0The [facility] HospitalComment on above:Performed By: #### LACT #### [facility] [address] [address] [address] Kulwant BrennanAlbumin/Globulin [Mass ratio]0.9 {ratio}NormalThe [facility] HospitalComment on above:Performed By: #### LACT #### [facility] [address] [address] [address] Kulwant MedinaP [Catalytic activity/Vol]124 U/LCritically ujau39-321Mhj [facility] HospitalComment on above:Performed By: #### LACT #### [facility] [address] [address] [address] Kulwant MedinaT [Catalytic activity/Vol]327 U/LCritically rvsh45-03Udd [facility] HospitalComment on above:Performed By: #### LACT #### [facility] [address] [place] [address] Dr. Kulwant Cardozaon gap [Moles/Vol]15.6 mmol/LNormalThe [facility] Comment on above:Performed By: #### LACT #### [facility] [address] [place] [address] Dr. Kulwant BrennanAST [Catalytic activity/Vol]229 U/LCritically vtgq93-04Lbw [facility] HospitalComment on above:Performed By: #### LACT #### [facility] [address] [place] [address] Dr. Kulwant BrennanBilirubin [Mass/Vol]6.2 mg/dLCritically high0.2-1.0The [facility] HospitalComment on above:Performed By: #### LACT #### [facility] [address] [place] [address] Dr. Kulwant BrennanCalcium [Mass/Vol]7.2 mg/dLCritically low8.5-10.1The [facility] HospitalComment on above:Performed By: #### LACT #### [facility] [address] [place] [address] Dr. Kulwant BrennanChloride [Moles/Vol]102 mmol/GLbogfn94-570Tta [facility] Comment on above:Performed By: #### LACT #### [facility] [address] [place] [address] Dr. Kulwant BrennanCO2 [Moles/Vol]26.4 mmol/SFzapwl60.0-32.0The [facility] Comment on above:Performed By: #### LACT #### [facility] [address] [address] [address] Kulwant BrennanCreatinine [Mass/Vol]3.33 mg/dLCritically high0.70-1.30The [facility] HospitalComment on above:Performed By: #### LACT #### [facility] [address] [place] [address] Dr. Blum ChangEGFR-AF UHKPUIBK24 mL/min/1.02c0Ctvypbrchb low>=60The [facility] HospitalComment on above:Performed By: #### LACT #### [facility] [address] [place] [address] Dr. Kulwant SellersGFR-NON AF PYUIVKXG72 mL/min/1.21m8Tcgprqwhrb low>=60The [facility] HospitalComment on above:Performed By: #### LACT #### [facility] [address] [place] [address] Dr. Kulwant BrennanGlobulin (S) [Mass/Vol]3.8 g/dLNormalThe [facility] HospitalComment on above:Performed By: #### LACT #### [facility] [address] [place] [address] Dr. Kulwant BrennanGlucose [Mass/Vol]245 mg/dLCritically edao80-094Kht [facility] HospitalComment on above:Performed By: #### LACT #### [facility] [address] [place] [address] Dr. Kulwant BrennanPotassium [Moles/Vol]5.0 mmol/LNormal3.5-5.1The [facility] Comment on above:Performed By: #### LACT #### [facility] [address] [place] [address] Dr. Kulwant BrennanProtein [Mass/Vol]7.1 g/dLNormal6.4-8.2The [facility] Comment on above:Performed By: #### LACT #### [facility] [address] [address] [address] Kulwant Culpdium [Moles/Vol]139 mmol/KKcfprb808-024Vua [facility] Comment on above:Performed By: #### LACT #### [facility] [address] [place] [address] Dr. Kulwant Scott nitrogen [Mass/Vol]51.0 mg/dLCritically high7.0-18.0The [facility] HospitalComment on above:Performed By: #### LACT #### [facility] [address] [place] [address] Dr. Kulwant Scott nitrogen/Creatinine [Mass ratio]15.3 mg/mgNoMercy Health St. Anne HospitalComment on above:Performed By: #### LACT #### [facility] [address] [place] [address] Dr. Kulwant Wharton 22-77-7049PHX Coag (PPP) [Relative time]1.17 {INR} NormalThe [facility] HospitalComment on above:Performed By: #### HSTROPN #### [facility] [address] [place] [address] Dr. Kulwant Guidry GUIDELINESSEE Flower HospitalComment on above:Result Comment: DESIRED INR: 2.0 - 3.0 CONDITIONS NOT LISTED BELOW 2.5 - 3.5 FOR PROSTHETIC HEART VALVE REPLACEMENT 2.5 - 3.5 RECURRENT THROMBOSIS Performed By: #### HSTROPN #### [facility] [address] [place] [address] Dr. Kulwant BrennanPT Coag (PPP) [Time]12.5 sCritically high9.0-11.6The [facility] HospitalComment on above:Performed By: #### HSTROPN #### [facility] [address] [place] [address] Dr. Kulwant Avelar 38-35-4679dERT Coag (Bld) [Time]33.3 uSpqrtj14.3-36.2The [facility] HospitalComment on above:Performed By: #### PTT, PT ####[facility] [address] [place] [address]Dr. Kulwant Brennan TROPONIN, HIGH SENSITIVITYon 80-86-3404VOZXGD3.0 pg/mLNormal4.0-76.1The [facility] on above:Result Comment: CUT-OFF POINTS HAVE BEEN ESTABLISHED BASED ON THE FOURTH UNIVERSAL DEFINITIONS OF MYOCARDIAL INFARCTION. THE UPPER REFERENCE LIMIT (URL) OF TROPONIN, DEFINED THE 99TH PERCENTILE OF cTnI DISTRIBUTION IN A REFERENCE POPULATION, HAS BEEN CONFIRMED THE DECISION THRESHOLD FOR [place] DIAGNOSIS.Performed By: #### LACT #### [facility] [address] [address] [address] Kulwant BrennanURINE MICROSCOPIC ONLYon [id number]V SEEN The [facility] HospitalCompromed[facility] on above:Performed By: #### ANA LAURA IQBAL ####[facility] Utupcpepsy[address]80 [address] Kulwant BrennanBacteria identified Cx Nom (U)INDICATEDTrumbull Regional Medical Center Comment on above:Performed By: #### MICHELLE IQBALRO ####[facility] [address]zsmallz[address] [place] [address]Dr. Kulwant BrennanCASTSEEN AbnormalNONE SEENThe [facility] HospitalCompromedica [facility] on above:Performed By: #### MICHELLE IQBALRO ####[facility] [address] [place] [address]Dr. Kulwant BrennanCOARSE GRANULAR CASTFEWTrumbull Regional Medical CenterComment on above:Performed By: #### MICHELLE IQBALRO ####[facility] [address]ilibadmgm[address] [place] [address]Dr. Kulwant BrennanCrystals LM Nom (Urine sed)NONE SEENNormalNONE SEENSelect Medical Specialty Hospital - AkronCompromedica [facility] on above:Performed By: #### MICHELLE IQBALRO ####[facility] [address]almd[address] [place] [address]Dr. Kulwant ChangEpithelial cells LM Ql (Urine sed)FEWAbnormalNONE SEEN /RARE The [facility] HospitalCompromedica [facility] on above:Performed By: #### SERGEY IQBALICRO ####[facility] [address]hyq[address] [place], [place]Dr. Kulwant BrennanMUCOUSTRACEAbnormalNONE SEENThe [facility] HospitalComment on above: Performed By: #### ANA LAURA IQBAL ####[facility] F[address]enwffcr[address] [place], [place]Dr. Kulwant HnfatATS2-47Omzvlvxz0-8Usm [facility] Comment on above:Performed By: #### ANA LAURA IQBAL ####[facility] Bhgxkgdalx[address] [place], [place]Dr. Kulwant ChangWBC0-2Abnormal NONE SEENThe [facility] HospitalComment on above:Performed By: #### ANA LAURA IQBAL ####[facility] Wzeurenxsv[address] [place], [place]Dr. Kulwant BrennanUS SINGLE QUAD RT UPPERon [id number] SINGLE QUAD RT UPPERUltrasound abdomen right upper quadrant HISTORY: Abdominal pain [...] Electronically authenticated by: DAVIE NARANJO Date: 2021-12-31 19:27NormalThe [facility] HospitalAMYLASEon 92-30-4255Qegvjzc [Catalytic activity/Vol]47 U/L Rjwzux58-565JzmSelect Medical Specialty Hospital - AkronComment on above:Performed By: #### HSTROPN #### [facility] [address] [place] [address] [address] AUTO DIFFon 50-77-2661LFUI #0.0 103/ulNormal0.0-0.1The [facility] HospitalComment on above:Performed By: #### LACT #### [facility] [address] [place] [address] Dr. Kulwant BrennanBasophils/100 WBC (Bld)0.5 %Normal0.2-2.0[facility] Comment on above:Performed By: #### LACT #### [facility] [address] [place] [address] Dr. Kulwant Radford #0.3 103/ulNormal0.0-0.7The [facility] HospitalComment on above: Performed By: #### LACT #### [facility] [address] [place] [address] Dr. Kulwant Sellersosinophils/100 WBC (Bld)3.3 %Normal0.9-7.0[facility] Comment on above:Performed By: #### LACT #### [facility] [address] [place] [address] Dr. Kulwant Sellersrythrocyte distribution width (RBC) [Ratio]14.1 %Gnuzcl80.0-15.0 [facility] - AkronComment on above:Performed By: #### LACT #### [facility] [address] [place] [address] Dr. Kulwant BrennanHematocrit (Bld) [Volume fraction]38.8 %Critically low42.0-54.0 [facility] - AkronComment on above:Performed By: #### LACT #### [facility] [address] [place] [address] Dr. Kulwant BrennanHemoglobin (Bld) [Mass/Vol]12.4 g/dLCritically low14.0-18.0The [facility] HospitalComment on above:Performed By: #### LACT #### [facility] [address] [address] [address] Kulwant Coronado #0.04 10e3/ulCritically high0.00-0.03The [facility] Comment on above:Performed By: #### LACT #### [facility] [address] [address] [address] Kulwant Coronado %0.5 %Normal0.0-0.5The [facility]itan HospitalComment on above: Performed By: #### LACT #### [facility] [address] [place] [address] Dr. Kulwant Griffith #1.9 103/ulNormal1.2-3.8The [facility] HospitalComment on above:Performed By: #### LACT #### [facility] [address] [place] [address] Dr. Kulwant Méndezhocytes/100 WBC (Bld)23.9 %Mxrmfi45.5-60.0The [facility] HospitalComment on above:Performed By: #### LACT #### [facility] [address] [place] [address] Dr. Kulwant KaplanUAL DIFF REQNONormalThe [facility] HospitalComment on above: Performed By: #### LACT #### [facility] [address] [address] [address] Kulwant Wilkinson (RBC) [Entitic mass]27.5 bmRneghm52.9-34.0The [facility] HospitalComment on above:Performed By: #### LACT #### [facility] [address] [address] [address] Kulwant Wilkinson (RBC) [Mass/Vol]32.0 g/sOAmsogl35.9-35.2The [facility] HospitalComment on above:Performed By: #### LACT #### [facility] [address] [place] [address] Dr. Kulwant WilkinsonV (RBC) [Entitic vol]86.0 wXWblkwm02.0-94.0The [facility] HospitalComment on above:Performed By: #### LACT #### [facility] [address] [place] [address] Dr. Kulwant Aguirre #0.9 103/ulCritically high0.3-0.8The [facility] Comment on above:Performed By: #### LACT #### [facility] [address] [place] [address] Dr. Kulwant Malcolmocytes/100 WBC (Bld)11.8 %Normal1.7-12.0[facility] Comment on above:Performed By: #### LACT #### [facility] [address] [place] [address] Dr. Kulwant Mena #4.7 103/ulNormal1.4-6.5The [facility] HospitalComment on above:Performed By: #### LACT #### [facility] [address] [place] [address] Dr. Kulwant Plasenciautrophils/100 WBC (Bld)60.0 %Ovatmn11.0-75.0The [facility] HospitalComment on above:Performed By: #### LACT #### [facility] [address] [place] [address] Dr. Kulwant Díazlet mean volume (Bld) [Entitic vol]10.0 fLNormal9.5-13.5The [facility] HospitalComment on above:Performed By: #### LACT #### [facility] [address] [place] [address] Dr. Kulwant BrennanPLT222 103/lmHfhjql125-384Iwk [facility] HospitalComment on above: Performed By: #### LACT #### [facility] [address] [place] [address] Dr. Kulwant BrennanRBC4.51 106/ulCritically low4.70-6.10The [facility] HospitalComment on above:Performed By: #### LACT #### [facility] [address] [place], [place] [address] Dr. Kulwant BrennanWBC7.9 103/ulNormal4.0-11.0The [facility] HospitalComment on above: Performed By: #### LACT #### [facility] [address] [place], [place] [address] Dr. Kulwant BrennanCT ABD/PELV W CONon 76-54-9089WH ABD/PELV W CONEXAMINATION: CT ABD/PELV W CON HISTORY: UNSPECIFIED ABDOMINAL PAIN COMPARISON: 12/29/2021. TECHNIQUE: CT of abdomen/pelvis with intravenous contrast. Dose reduction techniques were achieved by using automated exposure control and/or adjustment of mA and/or kV according to patient size and/or use of iterative reconstruction technique. FINDINGS: Chip Separator: No pertinent findings, which are not already [...] Electronically authenticated by: ALIYA AISHWARYA Date: 2021-12-30 21:29[facility] URINE PROFILEon 88-10-4290Ondqcgmui Ql (U)NegativeNormal NEGATIVESelect Medical Specialty Hospital - AkronComment on above:Performed By: #### LACT #### [facility] [address] [address] [address] Kulwant Heredia (U)CLEARNormalCLEARSelect Medical Specialty Hospital - AkronComment on above: Performed By: #### LACT #### [facility] [address] [address] [address] Kulwant Queen ()LT. YELLOWNormalYELLOWSelect Medical Specialty Hospital - AkronComment on above:Performed By: #### LACT #### [facility] [address] [place] [address] Dr. Kulwant Jarrett micrscopic examination will be performed if indicated. NormalSelect Medical Specialty Hospital - AkronComment on above:Performed By: #### LACT #### [facility] [address] [address] [address] Kulwant BrennanGlucose Ql (U)NegativeNormalNEGATIVESelect Medical Specialty Hospital - AkronComment on above:Performed By: #### LACT #### [facility] [address] [address] [address] Kulwant BrennanHemoglobin Ql (U)NegativeNormalNEGATIVEOhiohealth Grove [facility] on above:Performed By: #### LACT #### [facility] [address] [address] [address] Kulwant BrennanKetones Ql (U)NegativeNormalNEGATIVESelect Medical Specialty Hospital - AkronComment on above:Performed By: #### LACT #### [facility] [address] [address] [address] Kulwant BrennanLEUKOCYTESNegativeNormalNEGATIVESelect Medical Specialty Hospital - AkronComment on above:Performed By: #### LACT #### [facility] [address] [address] [address] Kulwant BrennanNitrite Ql (U)NegativeNormalNEGATIVEThe [facility] HospitalComment on above:Performed By: #### LACT #### [facility] [address] [place] [address] Dr. Kulwant BrennanpH (U)5.5 [pH]Normal5-9The [facility] HospitalComment on above: Performed By: #### LACT #### [facility] [address] [place] [address] Dr. Kulwant BrennanSPEC GRAVITY>=1.780Dbgqwcmk8.005-<=1.025The [facility] Comment on above:Performed By: #### LACT #### [facility] [address] [place] [address] Dr. Kulwant French PROTEINNegativeNormalNEGATIVE/ TRACEThe [facility] Comment on above:Performed By: #### LACT #### [facility] [address] [place] [address] Dr. Kulwant Bullock MICRO INDNOT INDICATEDNormalThe [facility] HospitalComment on above:Performed By: #### LACT #### [facility] [address] [place] [address] Dr. Kulwant BrennanUrobilinogen Qn (U)0.2 {Luis'U}/dLNormal0.2 - 1.0The [facility] HospitalComment on above:Performed By: #### LACT #### [facility] [address] [place] [address] Dr. Kulwant BrennanLIPASEvicky 02-99-5593Somnlh [Catalytic activity/Vol]105.0 U/LNormal 73.0-393.0The [facility] HospitalComment on above:Performed By: #### HSTROPN #### [facility] [address] [place] [address] Dr. Kulwant Smith PROFILEon 45-39-7096Uhudvrt [Mass/Vol]3.8 g/dLNormal3.4-5.0 The [facility] HospitalComment on above:Performed By: #### HSTROPN #### [facility] [address] [place] [address] Dr. Kulwant BrennanAlbumin/Globulin [Mass ratio]1.0 {ratio}NormalThe [facility] HospitalComment on above:Performed By: #### HSTROPN #### [facility] [address] [place] [address] Dr. Kulwant Ga [Catalytic activity/Vol]67 U/LAidcub21-366Ptd [facility] HospitalComment on above:Performed By: #### HSTROPN #### [facility] [address] [place] [address] Dr. Kulwant Bush [Catalytic activity/Vol]31 U/NGmhlxx18-83Vhm [facility] HospitalComment on above:Performed By: #### HSTROPN #### [facility] [address] [place] [address] Dr. Kulwant BrennanAST [Catalytic activity/Vol]21 U/IWnzsrd50-10Oha [facility] HospitalComment on above:Performed By: #### HSTROPN #### [facility] [address] [place] [address] Dr. Kulwant Roberts, CONJUGATED0.1 mg/dLNormal0.0-0.2[facility] Comment on above:Performed By: #### HSTROPN #### [facility] [address] [place] [address] Dr. Kulwant Goreirubin [Mass/Vol]0.5 mg/dLNormal0.2-1.0The [facility] Comment on above:Performed By: #### HSTROPN #### [facility] [address] [place] [address] Dr. Kulwant BrennanGlobulin (S) [Mass/Vol]3.7 g/dLNormalThe [facility] HospitalComment on above:Performed By: #### HSTROPN #### [facility] [address] [place] [address] Dr. Kulwant BrennanProtein [Mass/Vol]7.5 g/dLNormal6.4-8.2The [facility] Comment on above:Performed By: #### HSTROPN #### [facility] [address] [place] [address] Dr. Kulwant RicoF CHEM 8 (BAS METB)on 30-44-7669Zjhgf gap [Moles/Vol]14.5 mmol/LNormalSelect Medical Specialty Hospital - AkronComment on above:Performed By: #### HSTROPN #### [facility] [address] [address] [address] Kulwant BrennanCalcium [Mass/Vol]7.5 mg/dLCritically low8.5-10.1The [facility] HospitalComment on above:Performed By: #### HSTROPN #### [facility] [address] [address] [address] Kulwant BrennanChloride [Moles/Vol]104 mmol/EXbczom32-192VqmSelect Medical Specialty [facility] [place] Comment on above:Performed By: #### HSTROPN #### [facility] [address] [address] [address] Kulwant BrennanCO2 [Moles/Vol]26.8 mmol/GFcchcd11.0-32.0[facility] Comment on above:Performed By: #### HSTROPN #### [facility] [address] [address] [address] Kulwant BrennanCreatinine [Mass/Vol]1.31 mg/dLCritically high0.70-1.30The [facility] HospitalComment on above:Performed By: #### HSTROPN #### [facility] [address] [address] [address] Kulwant SellersGFR-AF ANGUILLAN>60Normal>=60The [facility] HospitalComment on above:Performed By: #### HSTROPN #### [facility] [address] [address] [address] Kulwant SellersGFR-NON AF TFOQJQPS42 mL/min/1.64w1Qanbwpfndd low>=60The [facility] HospitalComment on above:Performed By: #### HSTROPN #### [facility] [address] [address] [address] Kulwant BrennanGlucose [Mass/Vol]97 mg/zMCbkpxb02-907Kvl [facility] Comment on above:Performed By: #### HSTROPN #### [facility] [address] [place] [address] Dr. Kulwant BrennanPotassium [Moles/Vol]4.3 mmol/LNormal3.5-5.1[facility] Comment on above:Performed By: #### HSTROPN #### [facility] [address] [place] [address] Dr. Kulwant BrennanSodium [Moles/Vol]141 mmol/BSekpll735-347Ybd [facility] Comment on above:Performed By: #### HSTROPN #### [facility] [address] [place] [address] Dr. Kulwant BrennanUrea nitrogen [Mass/Vol]25.0 mg/dLCritically high7.0-18.0[facility] AkronComment on above:Performed By: #### HSTROPN #### [facility] [address] [place] [address] Dr. Kulwant Scott nitrogen/Creatinine [Mass ratio]19.1 mg/mgNormalThPaulding County HospitalComment on above:Performed By: #### HSTROPN #### [facility] Laboratory [address] [place] [address] AUTO DIFFon [id number] #0.0 103/ulNormal0.0-0.1[facility] - AkronComment on above:Performed By: #### HSTROPN #### [facility] Laboratory [address] [place] [address] Dr. Kulwant BrennanBapkphils/100 WBC (Bld)0.5 %Normal0.2-2.0[facility] Comment on above:Performed By: #### HSTROPN #### [facility] Laboratory [address] [place] [address] Dr. Kulwant Radford #0.3 103/ulNormal0.0-0.7The [facility] HospitalComment on above: Performed By: #### HSTROPN #### [facility] Laboratory [address] [place] [address] Dr. Kulwant Sellersosinophils/100 WBC (Bld)3.6 %Normal0.9-7.0The [facility] Comment on above:Performed By: #### HSTROPN #### [facility] Laboratory [address] [place] [address] Dr. Kulwant Sellersrythrocyte distribution width (RBC) [Ratio]14.1 %Bnrpkm99.0-15.0 The [facility] HospitalComment on above:Performed By: #### HSTROPN #### [facility] Laboratory [address] [place] [address] Dr. Kulwant BrennanHematocrit (Bld) [Volume fraction]39.0 %Critically low42.0-54.0 The [facility] HospitalComment on above:Performed By: #### HSTROPN #### [facility] Laboratory [address] [place] [address] Dr. Kulwant BrennanHemoglobin (Bld) [Mass/Vol]12.5 g/dLCritically low14.0-18.0The [facility] HospitalComment on above:Performed By: #### HSTROPN #### [facility] Laboratory [address] [place] [address] Dr. Kulwant Coronado #0.03 10e3/ulNormal0.00-0.03The [facility] Hospitalment on above:Performed By: #### HSTROPN #### [facility] Laboratory [address] [place] [address] Dr. Kulwant BrennanIG %0.4 %Normal0.0-0.5The [facility] Hospitalment on above: Performed By: #### HSTROPN #### [facility] Laboratory [address] [place] [address] Dr. Kulwant HallMPH #2.0 103/ulNormal1.2-3.8The [facility] HospitalComment on above:Performed By: #### HSTROPN #### [facility] Laboratory [address] [place] [address] Dr. Kulwant Hallmphocytes/100 WBC (Bld)28.0 %Letrzw51.5-60.0The [facility] HospitalComment on above:Performed By: #### HSTROPN #### [facility] Laboratory [address] [place] [address] Dr. Kulwant Camacho DIFF REQNONormalThe [facility]itan HospitalComment on above: Performed By: #### HSTROPN #### [facility] Laboratory [address] [place] [address] Dr. Kulwant Wilkinson (RBC) [Entitic mass]27.5 ezBqjnwz96.9-34.0The [facility] HospitalComment on above:Performed By: #### HSTROPN #### [facility] Laboratory [address] [place] [address] Dr. Kulwant Wilkinson (RBC) [Mass/Vol]32.1 g/sBFrfaep54.9-35.2The [facility] HospitalComment on above:Performed By: #### HSTROPN #### [facility] Laboratory [address] [place] [address] Dr. Kulwant Foley (RBC) [Entitic vol]85.7 aTDephqi79.0-94.0The [facility] HospitalComment on above:Performed By: #### HSTROPN #### [facility] Laboratory [address] [place] [address] Dr. Kulwant Aguirre #1.0 103/ulCritically high0.3-0.8The [facility] Comment on above:Performed By: #### HSTROPN #### [facility] Laboratory [address] [place] [address] Dr. Kulwant Malcolmocytes/100 WBC (Bld)14.0 %Critically high1.7-12.0The [facility] HospitalComment on above:Performed By: #### HSTROPN #### [facility] Laboratory [address] [place] [address] Dr. Kulwant Mena #3.9 103/ulNormal1.4-6.5The [facility] HospitalComment on above:Performed By: #### HSTROPN #### [facility] Laboratory [address] [place] [address] Dr. Kulwant Plasenciautrophils/100 WBC (Bld)53.5 %Ozymtv46.0-75.0The [facility] HospitalComment on above:Performed By: #### HSTROPN #### [facility] Laboratory [address] [place] [address] Dr. Kulwant BrennanPlatelet mean volume (Bld) [Entitic vol]10.1 fLNormal9.5-13.5The [facility] HospitalComment on above:Performed By: #### HSTROPN #### [facility] Laboratory [address] [place] [address] Dr. Kulwant BrennanPLT237 103/lhKghofd231-303Eok [facility] HospitalCompromed[facility] on above: Performed By: #### HSTROPN #### [facility] Laboratory [address] [place] [address] Dr. Kulwant BrennanRBC4.55 106/ulCritically low4.70-6.10The [facility] HospitalComment on above:Performed By: #### HSTROPN #### [facility] Laboratory [address] [place] [address] Dr. Kulwant BrennanWBC7.3 103/ulNormal4.0-11.0The [facility] HospitalCompromed[facility] on above: Performed By: #### HSTROPN #### [facility] Laboratory [address] [place] [address] Dr. Kulwant BrennanCT ABD/PELVIS WO CONon [id number] ABD/PELVIS WO CONCT ABD/PELVIS WO CON: 12/28/2021 11:46 PM EDT [...] Electronically authenticated by: AMOS RAMIREZ Date: 2021-12-29 00:59Normal The [facility] HospitalPRO 14(COMP METB)on [id number] [Mass/Vol]4.0 g/dL Normal3.4-5.0The [facility] Hospitalment on above:Performed By: #### HSTROPN #### [facility] Laboratory [address] [place] [address] Dr. Kulwant BrennanAlbumin/Globulin [Mass ratio]1.1 {ratio}NormalThe [facility] on above:Performed By: #### HSTROPN #### [facility] Laboratory [address] [address] [address] Kulwant MedinaP [Catalytic activity/Vol]68 U/KSgjxhl95-134Wgo [facility] on above:Performed By: #### HSTROPN #### [facility] Laboratory [address] [address] [address] Kulwant MedinaT [Catalytic activity/Vol]27 U/UNoscll20-90Cfk [facility] HospitalComment on above:Performed By: #### HSTROPN #### [facility] Laboratory [address] [place] [address] Dr. Kulwant BrennanAnion gap [Moles/Vol]12.8 mmol/LNormalThe [facility] Comment on above:Performed By: #### HSTROPN #### [facility] Laboratory [address] [place] [address] Dr. Kulwant BrennanAST [Catalytic activity/Vol]16 U/VMvwoed11-62Tke [facility] HospitalComment on above:Performed By: #### HSTROPN #### [facility] Laboratory [address] [place] [address] Dr. Kulwant BrennanBilirubin [Mass/Vol]0.5 mg/dLNormal0.2-1.0[facility] Comment on above:Performed By: #### HSTROPN #### [facility] Laboratory [address] [place] [address] Dr. Kulwant BrennanCalcium [Mass/Vol]7.4 mg/dLCritically low8.5-10.1The [facility] HospitalComment on above:Performed By: #### HSTROPN #### [facility] Laboratory [address] [place] [address] Dr. Kulwant BrennanChloride [Moles/Vol]102 mmol/EHhpfvv04-412Iou [facility] Comment on above:Performed By: #### HSTROPN #### [facility] Laboratory [address] [place] [address] Dr. Kulwant BrennanCO2 [Moles/Vol]27.1 mmol/SXbjlfc45.0-32.0The [facility] Comment on above:Performed By: #### HSTROPN #### [facility] Laboratory [address] [place] [address] Dr. Kulwant BrennanCreatinine [Mass/Vol]1.42 mg/dLCritically high0.70-1.30The [facility] HospitalComment on above:Performed By: #### HSTROPN #### [facility] [address] [address] [address] Kulwant SellersGFR-AF QQBTNJNF30 mL/min/1.22h2Sqsegt>=60[facility] Comment on above:Performed By: #### HSTROPN #### [facility] [address] [address] [address] Kulwant SellersGFR-NON AF GOHEUCOI12 mL/min/1.86n0Emksmsgkxe low>=60[facility]ronComment on above:Performed By: #### HSTROPN #### [facility] [address] [address] [address] Kulwant BrennanGlobulin (S) [Mass/Vol]3.5 g/dLNormalThe [facility] HospitalComment on above:Performed By: #### HSTROPN #### [facility] [address] [address] [address] Kulwant BrennanGlucose [Mass/Vol]139 mg/dLCritically ypjn44-296AibSelect Medical Specialty Hospital - AkronComment on above:Performed By: #### HSTROPN #### [facility] [address] [address] [address] Kulwant BrennanPotassium [Moles/Vol]3.9 mmol/LNormal3.5-5.1[facility] Comment on above:Performed By: #### HSTROPN #### [facility] [address] [address] [address] Kulwant BrennanProtein [Mass/Vol]7.5 g/dLNormal6.4-8.2[facility] Comment on above:Performed By: #### HSTROPN #### [facility] [address] [address] [address] Kulwant BrennanSodium [Moles/Vol]138 mmol/CHpugkx223-423GzhSelect Medical Specialty Hospital [facility] [place] Comment on above:Performed By: #### HSTROPN #### [facility] [address] [address] [address] Kulwant BrennanUrea nitrogen [Mass/Vol]27.0 mg/dLCritically high7.0-18.0The [facility] HospitalComment on above:Performed By: #### HSTROPN #### [facility] Laboratory [address] [place] [address] Dr. Kulwant Scott nitrogen/Creatinine [Mass ratio]19.0 mg/mgNormalThPaulding County HospitalComment on above:Performed By: #### HSTROPN #### [facility] Laboratory [address] [place] [address] Dr. Kulwant Miramontes 18-19-8549fAVC Coag (Bld) [Time]32.8 jEilbbp96.0-35.0The [facility] HospitalComment on above:Order Comment: No: Do not add to previous drawResult Comment: ALL RESULTS MUST BE INTERPRETED WITH RESPECT TO BLOOD DRAWING ARTIFACT OR DILUTION ERROR OF ANTICOAGULANT AT THE TIME OF SAMPLING. THE APTT SHOULD NOT BE USED TO MONITOR UNFRACTIONATED HEPARIN THERAPY, THIS LABORATORY NO LONGER HAS AN ESTABLISHED THERAPEUTIC RANGE BASED ON THE APTT. IT IS RECOMMENDED THAT THE UFH - HEPARIN ASSAY (ANTI-XA ACTIVITY) BE USED FOR THIS PURPOSE.Performed By: #### [id number], 22301 #### [facility] [address] [place] [address], [facility]ENTERCB COMPLETE BLOOD COUNTon 57-05-8260Yluxhyoljge distribution width (RBC) [Ratio]14.0 %Kmdlia56.5-15.0The [facility] HospitalComment on above:Order Comment: No: Do not add to previous draw Performed By: #### 21520, 38958 #### [facility] [address] [place] [address], [facility] CANCER CENTERHematocrit (Bld) [Volume fraction]36.7 %Low39.0-50.0The [facility] HospitalComment on above:Order Comment: No: Do not add to previous drawPerformed By: #### 10183, 56929 #### [facility] [address] [place] [address], USAHemoglobin (Bld) [Mass/Vol]12.0 g/dLLow13.0-17.0The [facility] HospitalComment on above:Order Comment: No: Do not add to previous drawPerformed By: #### 43809, 69583 #### [facility] [address] [place] [address], [facility] (RBC) [Entitic mass]27.5 glQliklu84.0-33.0The [facility] HospitalComment on above:Order Comment: No: Do not add to previous drawPerformed By: #### 06003, 62685 #### [facility] [address] [place] [address], [facility] CITYHC (RBC) [Mass/Vol]32.7 g/fBVwfgia38.0-35.0The [facility] HospitalComment on above:Order Comment: No: Do not add to previous drawPerformed By: #### 14259, 45516 #### [facility] [address] [place] [address], [facility] CITYV (RBC) [Entitic vol]84.0 lSRgqopm98.0-98.0The [facility] HospitalComment on above:Order Comment: No: Do not add to previous drawPerformed By: #### 83342, 24033 #### [facility] [address] [place] [address], [facility] CANCER CENTERNucleated RBC/100 WBC (Bld) [Ratio]0 %Normal0-0The [facility] HospitalComment on above:Order Comment: No: Do not add to previous drawPerformed By: #### 82996, 99440 #### [facility] [address] [place] [address], [facility] CANCER CENTERPLAT [id number] 10*3/dOAffkiz094-459Mow [facility] HospitalComment on above:Order Comment: No: Do not add to previous draw Performed By: #### 64636, 77211 #### [facility] [address] [place] [address], [facility] CAN[facility]ER CENTERRBC (Bld) [#/Vol]4.37 10*6/uLNormal4.20-5.70The [facility] HospitalComment on above:Order Comment: No: Do not add to previous drawPerformed By: #### 42599, 24411 #### [facility] [address] [place] [address], USAWBC (Bld) [#/Vol]8.41 10*3/uLNormal4.00-10.60The [facility] HospitalComment on above:Order Comment: No: Do not add to previous drawPerformed By: #### 73222, 70793 #### [facility] [address] [place] [address], USACOMP METABOLIC PANELon 55-03-5481Xkzjhee [Mass/Vol]3.8 g/dL Normal3.5-5.7The [facility] HospitalComment on above:Order Comment: No: Do not add to previous drawPerformed By: #### 05900, 20666 #### [facility] [address] [place] [address], USAALKALINE CHKQIJ33 IU/BWsnmxn25-953Gxc [facility] HospitalComment on above:Order Comment: No: Do not add to previous draw Performed By: #### 98517, 07003 #### [facility] [address] [place] [address], USAALT [Catalytic activity/Vol]16 U/LNormal7-52The [facility] HospitalComment on above:Order Comment: No: Do not add to previous drawPerformed By: #### 62733, 30075 #### [facility] [address] [place] [address], USAAST [Catalytic activity/Vol]15 U/QMupmhv92-08Ogo [facility] HospitalComment on above:Order Comment: No: Do not add to previous drawPerformed By: #### 49511, 56249 #### [facility] [address] [place] [address], USABilirubin [Mass/Vol]0.9 mg/dLNormal0.3-1.0The [facility] HospitalComment on above:Order Comment: No: Do not add to previous drawPerformed By: #### 12633, 07853 #### [facility] [address] [place] [address], USACalcium [Mass/Vol]7.0 mg/dLLow8.6-10.3The [facility] HospitalComment on above:Order Comment: No: Do not add to previous drawPerformed By: #### 99246, 70067 #### [facility] [address] [place] [address], USAChloride [Moles/Vol]106 mmol/OJcidbq61-400Jqv [facility] HospitalComment on above:Order Comment: No: Do not add to previous drawPerformed By: #### 31671, 88818 #### [facility] [address] [place] [address], USACO2 [Moles/Vol]27 mmol/SWsrure51-44Rde [facility] HospitalComment on above:Order Comment: No: Do not add to previous draw Performed By: #### 91246, 33157 #### [facility] [address] [place] [address], USACreatinine [Mass/Vol]1.16 mg/dLNormal0.70-1.30The [facility] HospitalComment on above:Order Comment: No: Do not add to previous drawPerformed By: #### 68664, 58502 #### [facility] [address] [place] [address], USAGFR/1.73 sq M.predicted among non-blacks MDRD (S/P/Bld) [Vol rate/Area]mL/min/{1.73_m2}Normal>60The [facility] Comment on above:Order Comment: No: Do not add to previous drawResult Comment: [facility]'s estimated glomerular filtration rate (eGFR) [...] not disproportionately affect any one group of individuals.Performed By: #### 87658, 66418 #### [facility] [address] [place] [address], USAGlucose [Mass/Vol]104 mg/yKLxqm40-446Rvl [facility] HospitalComment on above:Order Comment: No: Do not add to previous drawPerformed By: #### 39035, 88001 #### [facility] [address] [place] [address], USAPotassium [Moles/Vol]4.3 mmol/LNormal3.5-5.1The [facility] HospitalComment on above:Order Comment: No: Do not add to previous drawPerformed By: #### 35983, 51973 #### [facility] [address] [place] [address], USAProtein [Mass/Vol]6.2 g/dLNormal6.0-8.3The [facility] HospitalComment on above:Order Comment: No: Do not add to previous drawPerformed By: #### 89946, 97679 #### [facility] [address] [place] [address], USASodium [Moles/Vol]138 mmol/HDzppqa701-617Fcn [facility] HospitalComment on above:Order Comment: No: Do not add to previous drawPerformed By: #### 77858, 70721 #### [facility] [address] [place] [address], USAUrea nitrogen [Mass/Vol]26 mg/dLHigh7-25The [facility] HospitalComment on above:Order Comment: No: Do not add to previous drawPerformed By: #### 27273, 09471 #### [facility] [address] [place] [address], USACardiovascular Lab Reporton [id number] Lab ReportUnAvita Health System [facility] Patient Name: Yoli Antunez [facility] MR #: [id number] Physician: Mono Montero [facility] Service Date: 12/12/2021 Division of Birthdate: 1955 Cardiology Room #: 5CD [id number] Adult Cardiovascular Services [facility] [address] [place], [place] [address] Cardiovascular Laboratory Report INDICATION: The patient is [...] the right common femoral vein using a 6-[place] ProGlide device. METHODS: Procedure was explained to the patient with risks and benefits, he signed informed consent. 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 The procedure was [...] the right common femoral vein and a 6-[place] x 11 cm sheath was placed. Preclosure in the vein was performed using a 6-[place] ProGlide device, a transseptal wire was advanced [...] was retracted and exchanged to the Watchman 14-[place] double curve access sheath. This was not [...] stiffer wire. This was performed using a 6-[place] multipurpose catheter, through which we advanced a Lunderquist double curve wire and the distal end was placed in the left superior pulmonary vein. This eventually allowed to advance the sheath across the interatrial septum. A 6-[place] angled pigtail catheter was advanced and used [...] and we provided the (more content not included)...NormalThe [facility] HospitalPROTHROMBIN TIMEon [id number] Coag (PPP) [Relative time]1.09 {INR}Normal0.91-1.16The [facility] HospitalComment on above:Order Comment: No: Do not add to previous drawResult Comment: ACCCP RECOMMENDED INR FOR WARFARIN THERAPY ------- CONDITION INR PROPHYLAXIS OF VENOUS THROMBOSIS 2-3 (HIGH-RISK SURGERY) TREATMENT OF VENOUS THROMBOSIS 2-3 TREATMENT OF PULMONARY EMBOLISM 2-3 PREVENTION OF SYSTEMIC EMBOLISM: 2-3 ACUTE MYOCARDIAL INFARCTION TISSUE HEART VALVES VALVULAR HEART DISEASE ATRIAL FIBRILLATION RECURRENT SYSTEMIC EMBOLISM MECHANICAL HEART VALVE 2.5-3.5 FROM: ORAL ANTICOAGULANTS. MECHANISM OF ACTION, CLINICAL EFFECTIVENESS, AND OPTIMAL THERAPEUTIC RANGE. CHEST 1995;108:231S-246S.Performed By: #### 73773, 38347 #### [facility] [address] [place] [address], USAPT Coag (PPP) [Time]14.1 xUwmdxh37.3-14.8The [facility] HospitalComment on above:Order Comment: No: Do not add to previous drawResult Comment: ALL RESULTS MUST BE INTERPRETED WITH RESPECT TO BLOOD DRAWING ARTIFACT OR DILUTION ERROR OF ANTICOAGULANT AT THE TIME OF SAMPLING.Performed By: #### 37998, 51169 #### [facility] [address] [place] [address], USATYPE AND SCREENon [id number] INTERPRETATIONONoPremier Health Atrium Medical CenterComment on above:Performed By: #### 34074 #### [facility] [address] [place] [address], USARH INTERPRETATIONPositiveNoPremier Health Atrium Medical CenterComment on above:Performed By: #### 89813 #### [facility] [address] [place] [address], USACovid-19 PCR (CVDTBH)on 09-07-7995SDQC-CoV-2 (COVID-19) RNA MIKE+probe Ql (Unsp spec)Not detectedNormalNOT DETECTEDThe [facility] Comment on above:Result Comment: This test is not yet approved or cleared by the [place] FDA. When there are no FDA-approved or cleared tests available, and other criteria are met, FDA can make tests available under an emergency access mechanism called an Emergency Use Authorization (EUA). The EUA for this test is supported by the [place] of Health and Human Service's (HHS's) declaration that circumstances exist to justify the emergency use of in vitro diagnostics for the detection and/or diagnosis of the virus that causes COVID- 19. This EUA will remain in effect (meaning [...] of clinical signs and symptoms consistent with SARS-CoV-2.Performed By: #### LACT #### [facility] [address] [place] [address] Dr. Kulwant Brennan*MRSA/MSSA DNA NASALon 11-21-2021*MRSA/MSSA DNA NASALClinical Report: (D) Specimen: NASAL SWAB Collected: 11/21/2021 09:15 Status: Final Last Updated: 11/21/2021 12:32 MSSA DNA (Final) Negative MRSA DNA (Final) NegativeNormalThe [facility] HospitalComment on above:Performed By: #### 46440 #### [facility] [address] [place] [address], USABASIC METABOLIC PANELon 29-44-8042Smpgtnc [Mass/Vol]7.0 mg/dLLow8.6-10.3The [facility] HospitalComment on above: Performed By: #### 42143 #### [facility] [address] [place] [address], USAChloride [Moles/Vol]105 mmol/NMlowwn51-891Pyx [facility] HospitalComment on above:Performed By: #### 42826 #### [facility] [address] [place] [address], USACO2 [Moles/Vol]25 mmol/OApmtsi31-54Clk [facility] HospitalComment on above:Performed By: #### 81410 #### [facility] [address] [place] [address], USACreatinine [Mass/Vol]1.37 mg/dLHigh0.70-1.30The [facility] HospitalComment on above:Performed By: #### 69449 #### [facility] [address] [place] [address], CGKQCIG94 ml/min/1.73sq mAbnormal>60The [facility] HospitalComment on above:Result Comment: [facility]'s estimated glomerular filtration rate (eGFR) [...] not disproportionately affect any one group of individuals.Performed By: #### 13194 #### [facility] [address] [place] [address], USAGlucose [Mass/Vol]100 mg/tHPtyaqj21-143Cat [facility] HospitalComment on above:Performed By: #### 11746 #### [facility] [address] [place] [address], USAPotassium [Moles/Vol]4.6 mmol/LNormal3.5-5.1The [facility] HospitalComment on above:Performed By: #### 67248 #### [facility] [address] [place] [address], USASodium [Moles/Vol]139 mmol/KSjkwwv336-349Tec [facility] HospitalComment on above:Performed By: #### 94174 #### [facility] [address] [place] [address], USAUrea nitrogen [Mass/Vol]26 mg/dLHigh7-25The [facility] HospitalComment on above:Performed By: #### 74581 #### [facility] [address] [place] [address], USACBC COMPLETE BLOOD COUNTon 84-53-8308Ndnmqmoowvt distribution width (RBC) [Ratio]14.2 %Geftux51.5-15.0The [facility] HospitalComment on above:Performed By: #### [id number], 81300 #### [facility] [address] [place] [address], USAHematocrit (Bld) [Volume fraction]40.6 %Ynngif61.0-50.0The [facility] Memorial HospitalComment on above:Performed By: #### 92677, 47512 #### [facility] [address] [address], USAHemoglobin (Bld) [Mass/Vol]13.0 g/qERhpbii50.0-17.0The [facility] HospitalComment on above:Performed By: #### 20713, 94514 #### [facility] [address] [place] [address], [place] [facility] (RBC) [Entitic mass]27.0 jkRldbjn34.0-33.0The [facility] HospitalComment on above:Performed By: #### 08252, 57814 #### [facility] [address] [place] [address], [place] [facility]HC (RBC) [Mass/Vol]32.0 g/cAKajcct11.0-35.0The [facility] HospitalComment on above:Performed By: #### 52031, 22574 #### [facility] [address] [place] [address], [place] [facility] [place] (RBC) [Entitic vol]84.4 aXUnddsa89.0-98.0The [facility] Memorial HospitalComment on above:Performed By: #### 14381, 63183 #### [facility] [address] [place] [address], USANucleated RBC/100 WBC (Bld) [Ratio]0 %Normal0-0The [facility] Memorial HospitalComment on above:Performed By: #### 29130, 52639 #### [facility] [address] [place] [address], [place]AP[place] GYQ266 10*3/lLBequbn126-296Lor [facility] Memorial HospitalComment on above:Performed By: #### 81717, 48274 #### [facility] [address] [place] [address], USARBC (Bld) [#/Vol]4.81 10*6/uLNormal4.20-5.70The [facility] Memorial HospitalComment on above:Performed By: #### 90003, 98391 #### [facility] [address] [place] [address], USAWBC (Bld) [#/Vol]7.53 10*3/uLNormal4.00-10.60The [facility] Memorial HospitalComment on above:Performed By: #### 74182, 61841 #### [address] [address], USACHEST AND LATERALon [id number] AND [facility] [address] [place] [address] Patient Name: YOLI ANTUNEZ : [...] device. Electronically signed: Danilo Bhandari. Transcribed by: [email or web address], User Resident: Electronically Signed by: DANILO BHANDARI @ 11/21/2021 11:32 AMNormalThe [facility]-Hyde Memorial HospitalComment on above:Order Comment: No: Do not add to previous drawCovid-19 PCR ([facility])on 76-16-7220DJTY-CoV-2 (COVID-19) RNA MIKE+probe Ql (Unsp spec)Not detectedNormalNOT DETECTEDThe [facility] Comment on above:Result Comment: This test is not yet approved or cleared by the [place] FDA. When there are no FDA-approved or cleared tests available, and other criteria are met, FDA can make tests available under an emergency access mechanism called an Emergency Use Authorization (EUA). The EUA for this test is supported by the Shipwright Apprentice of Health and Human Service's (HHS's) declaration that circumstances exist to justify the emergency use of in vitro diagnostics for the detection and/or diagnosis of the virus that causes COVID- 19. This EUA will remain in effect (meaning [...] of clinical signs and symptoms consistent with SARS-CoV-2.Performed By: #### [facility] ####[facility] [address] [place], [place] [address]DxAmarjit Alanaselvin [facility] Medical CenterCardiovascular Lab Reporton [id number] Lab ReportUnAvita Health System [facility] Patient Name: [facility] Yoli Peoples MR #: [id number] Department of Physician: Lalito Joshi MD Medicine Service Date: 11/09/2021 Division of Birthdate: 1955 Cardiology Room #: Adult Cardiovascular Services [place] [address] Cardiovascular Laboratory Report LOOP IMPLANT PROCEDURE NOTE [...] the sternum on the left using the Norton DivvyHQ tool. The loop recorder was then injected [...] observed. LOOP details: Device Model: M301 Serial#: [id number] Sensin.16mV. IMPRESSION: Successful placement of LOOP implant with excellent sensing parameters. RECOMMENDATIONS: 1. Occlusive dressing to be changed after 7 days. 2. Do not wet the incision. Lalito Joshi MD Cardiac Electrophysiology. Electronically Signed by: Lalito Joshi MD 11/10/2021 11:10 A Lalito Joshi MD Date Dict: 11/09/2021/08:45 A/Lalito Joshi MD Date Trans: 11/09/2021 11:32 A/liliane DN_JN:[id number] cc: Radha Burris M.D. [address] [place] [address] [facility] [address]MisgupUfoBarney Children's Medical Center SARS COV2 IDon 53-45-6531MWDG-CoV-2 (COVID-19) RNA MIKE+probe Ql (Unsp spec)NegativeNormal NEGATIVEThe [facility] Memorial HospitalComment on above:Result Comment: ID NOW COVID-19 assay performed on the ID NOW [...] Waiver, Certificate of Compliance, or Certificate of Accreditation.Performed By: #### 79252, 12004 #### [address] [place] [address], UN[facility] CANCER CENTERBNPon 91-28-1443Pulxxhhapcg peptide B (Bld) [Mass/Vol]75.0 pg/mLNormal<=900.0The [facility]itan HospitalComment on above:Performed By: #### HSTROPN #### [facility] [address] [place] [address] Dr. Kulwant DICK ADMITon 27-25-9389CX [Catalytic activity/Vol]142 U/L Wfjlxd56-380TbvSelect Medical Specialty Hospital - AkronComment on above:Performed By: #### HSTROPN #### [facility] [address] [place] [address] Dr. Kulwant Patton.MB [Mass/Vol]1.15 ng/mLNormal<=3.60[facility] Comment on above:Performed By: #### HSTROPN #### [facility] [address] [place] [address] Dr. Kulwant LockwoodTROP4.0 pg/mLNormal4.0-76.1The [facility]aritan HospitalComment on above:Result Comment: CUT-OFF POINTS HAVE BEEN ESTABLISHED BASED ON THE FOURTH UNIVERSAL DEFINITIONS OF MYOCARDIAL INFARCTION. THE UPPER REFERENCE LIMIT (URL) OF TROPONIN, DEFINED THE 99TH PERCENTILE OF cTnI DISTRIBUTION IN A REFERENCE POPULATION, HAS BEEN CONFIRMED THE DECISION THRESHOLD FOR [place] DIAGNOSIS.Performed By: #### HSTROPN #### [facility] [address] [place] [address] Dr. Kulwant PinedaO57 ng/tMAyrpfo54-00Leg [facility] HospitalComment on above: Performed By: #### HSTROPN #### [facility] [address] [place] [address] AUTO DIFFon 06-10-9248ZJQX #0.0 103/ulNormal0.0-0.1The [facility]aritan HospitalComment on above:Performed By: #### HSTROPN #### [facility] [address] [place] [address] Dr. Kulwant BrennanBasophils/100 WBC (Bld)0.4 %Normal0.2-2.0[facility] Comment on above:Performed By: #### HSTROPN #### [facility] [address] [place] [address] Dr. Kulwant Radford #0.2 103/ulNormal0.0-0.7The [facility]aritan HospitalComment on above: Performed By: #### HSTROPN #### [facility] [address] [place] [address] Dr. Kulawnt Sellersosinophils/100 WBC (Bld)2.6 %Normal0.9-7.0[facility] Comment on above:Performed By: #### HSTROPN #### [facility] [address] [place] [address] Dr. Kulwant Sellersrythrocyte distribution width (RBC) [Ratio]14.6 %Fqshnv64.0-15.0 The [facility]aritan HospitalComment on above:Performed By: #### HSTROPN #### [facility] [address] [place] [address] Dr. Kulwant BrennanHematocrit (Bld) [Volume fraction]43.0 %Snhlzs89.0-54.0The [facility]aritan HospitalComment on above:Performed By: #### HSTROPN #### [facility] [address] [place] [address] Dr. Kulwant BrennanHemoglobin (Bld) [Mass/Vol]13.6 g/dLCritically low14.0-18.0The [facility]itan HospitalComment on above:Performed By: #### HSTROPN #### [facility] [address] [place] [address] Dr. Kulwant Coronado #0.03 10e3/ulNormal0.00-0.03The [facility] HospitalComment on above:Performed By: #### HSTROPN #### [facility] [address] [place] [address] Dr. Kulwant Coronado %0.4 %Normal0.0-0.5The [facility]itan HospitalComment on above: Performed By: #### HSTROPN #### [facility] [address] [place] [address] Dr. Kulwant Griffith #1.8 103/ulNormal1.2-3.8The [facility]aritan HospitalComment on above:Performed By: #### HSTROPN #### [facility] [address] [place] [address] Dr. Kulwant Méndezhocytes/100 WBC (Bld)25.3 %Dpnpli35.5-60.0The [facility]itan HospitalComment on above:Performed By: #### HSTROPN #### [facility] [address] [place] [address] Dr. Kulwant KaplanUAL DIFF REQNONormalThe [facility] HospitalComment on above: Performed By: #### HSTROPN #### [facility] [address] [place] [address] Dr. Kulwant Hagan (RBC) [Entitic mass]27.1 lgXvijws64.9-34.0The [facility]itan HospitalComment on above:Performed By: #### HSTROPN #### [facility] [address] [place] [address] Dr. Kulwant Wilkinson (RBC) [Mass/Vol]31.6 g/vCKuqzqo76.9-35.2The [facility]itan HospitalComment on above:Performed By: #### HSTROPN #### [facility] [address] [place] [address] Dr. Kulwant Foley (RBC) [Entitic vol]85.8 uLOaurjm06.0-94.0The [facility] HospitalComment on above:Performed By: #### HSTROPN #### [facility] [address] [place] [address] Dr. Kulwant Aguirre #0.8 103/ulNormal0.3-0.8The [facility]itan HospitalComment on above:Performed By: #### HSTROPN #### [facility] [address] [place] [address] Dr. Kulwant Malcolmocytes/100 WBC (Bld)11.9 %Normal1.7-12.0The [facility] Comment on above:Performed By: #### HSTROPN #### [facility] [address] [place] [address] Dr. Kulwant Mena #4.1 103/ulNormal1.4-6.5The [facility]itan HospitalComment on above:Performed By: #### HSTROPN #### [facility] [address] [place] [address] Dr. Kulwant Plasenciautrophils/100 WBC (Bld)59.4 %Tddgmk75.0-75.0The [facility]itan HospitalComment on above:Performed By: #### HSTROPN #### [facility] [address] [place] [address] Dr. Kulwant Díazlet mean volume (Bld) [Entitic vol]9.8 fLNormal9.5-13.5The [facility]itan HospitalComment on above:Performed By: #### HSTROPN #### [facility] [address] [place] [address] Dr. Kulwant PriceT201 103/rlTnitdg501-730Vfx [facility] HospitalComment on above: Performed By: #### HSTROPN #### [facility] [address] [place] [address] [address] Kulwant BrennanRBC5.01 106/ulNormal4.70-6.10The [facility]itan HospitalComment on above:Performed By: #### HSTROPN #### [facility] [address] [place] [address] [address] Kulwant BrennanWBC7.0 103/ulNormal4.0-11.0The [facility]itan HospitalComment on above: Performed By: #### HSTROPN #### [facility] [address] [place] [address] [address] Kulwant BrennanCT HEAD WO CONon 60-47-4150GR HEAD WO CONEXAMINATION: CT HEAD WO CON HISTORY: Dizziness , [...] Electronically authenticated by: DONNELL DU Date: 2021-10-03 11:41NormBarney Children's Medical CenterCTA CHEST WO W CONon [id number] CHEST WO W CONEXAMINATION: CTA CHEST WO W CON HISTORY: CHEST PAIN, UNSPECIFIED [...] Electronically authenticated by: DONNELL DU Date: 2021-10-03 11:50[facility] URINE PROFILEon 93-40-3162Unggaaqak Ql (U)NegativeNormal NEGATIVESelect Medical Specialty Hospital - AkronComment on above:Performed By: #### HSTROPN #### [facility] [address] [place] [address] Dr. Kulwant BrennanClestefany (U)CLEARNormalCLEARSelect Medical Specialty Hospital - AkronComment on above: Performed By: #### HSTROPN #### [facility] [address] [place] [address] [address] Kulwant Queen (U)LT. YELLOWNormalYELLOWSelect Medical Specialty Hospital - AkronComment on above:Performed By: #### HSTROPN #### [facility] [address] [place] [address] Dr. Kulwant Jarrett micrscopic examination will be performed if indicated. NormalSelect Medical Specialty Hospital - AkronComment on above:Performed By: #### HSTROPN #### [facility] [address] [place] [address] [address] Kulwant BrennanGlucose Ql (U)NegativeNormalNEGATIVESelect Medical Specialty Hospital - AkronComment on above:Performed By: #### HSTROPN #### [facility] [address] [place] [address] Dr. Kulwant BrennanHemoglobin Ql (U)NegativeNormalNEGATIVEOhiohealth Grove City Methodist Hospital on above:Performed By: #### HSTROPN #### [facility] [address] [place] [address] Dr. Kulwant Knight Ql (U)NegativeNormalNEGATIVEThe [facility]aritan HospitalComment on above:Performed By: #### HSTROPN #### [facility] [address] [place] [address] Dr. Kulwant BrennanLEUKOCYTESNegativeNormalNEGATIVEThe [facility]itan HospitalComment on above:Performed By: #### HSTROPN #### [facility] [address] [place] [address] Dr. Kulwant Gregorytrdexter Ql (U)NegativeNormalNEGATIVEThe [facility]itan HospitalComment on above:Performed By: #### HSTROPN #### [facility] [address] [place] [address] Dr. Kulwant BrennanpH (U)5.5 [pH]Normal5-9The [facility] Samaritan HospitalComment on above: Performed By: #### HSTROPN #### [facility] [address] [place] [address] Dr. Kulwant BrennanSPEC GRAVITY1.587Nwcoty8.005-<=1.025The [facility]aritan HospitalComment on above:Performed By: #### HSTROPN #### [facility] [address] [place] [address] Dr. Kulwant French PROTEINNegativeNormalNEGATIVE/ TRACEThe [facility] Comment on above:Performed By: #### HSTROPN #### [facility] [address] [place] [address] Dr. Kulwant Bullock MICRO INDNOT INDICATEDNormalThe [facility]aritan HospitalComment on above:Performed By: #### HSTROPN #### [facility] [address] [place] [address] Dr. Kulwant Garciabilinogen Qn (U)0.2 {Luis'U}/dLNormal0.2 - 1.0The [facility]aritan HospitalComment on above:Performed By: #### HSTROPN #### [facility] [address] [place] [address] Dr. Kulwant RicoF 14(COMP METB)on 00-42-7929Rfcmscx [Mass/Vol]3.9 g/dLNormal 3.4-5.0The [facility] Hospitalment on above:Performed By: #### HSTROPN #### [facility] [address] [place] [address] [address] Kulwant BrennanAlbumin/Globulin [Mass ratio]1.0 {ratio}NormalThe [facility]itan HospitalComment on above:Performed By: #### HSTROPN #### [facility] [address] [place] [address] [address] Kulwant MedinaP [Catalytic activity/Vol]59 U/TSgvcmr84-279Ddj [facility] Hospitalment on above:Performed By: #### HSTROPN #### [facility] [address] [place] [address] [address] Kulwant MedinaT [Catalytic activity/Vol]30 U/DJggigq81-77Utg [facility] HospitalComment on above:Performed By: #### HSTROPN #### [facility] [address] [place] [address] [address] Kulwant Akbar gap [Moles/Vol]13.4 mmol/LNormalThe [facility] Comment on above:Performed By: #### HSTROPN #### [facility] [address] [place] [address] [address] Kulwant BrennanAST [Catalytic activity/Vol]14 U/LCritically mbv95-81Zko [facility] Hospitalment on above:Performed By: #### HSTROPN #### [facility] [address] [place] [address] [address] Kulwant BrennanBilirubin [Mass/Vol]0.6 mg/dLNormal0.2-1.0The [facility] Comment on above:Performed By: #### HSTROPN #### [facility] [address] [place] [address] [address] Kulwant BrennanCalcium [Mass/Vol]7.6 mg/dLCritically low8.5-10.1The [facility] HospitalComment on above:Performed By: #### HSTROPN #### [facility] [address] [place] [address] [address] Kulwant BrennanChloride [Moles/Vol]107 mmol/CSryptw20-296Bfn [facility] Comment on above:Performed By: #### HSTROPN #### [facility] [address] [place] [address] [address] Kulwant BrennanCO2 [Moles/Vol]24.4 mmol/TIjphzh40.0-32.0The [facility] Comment on above:Performed By: #### HSTROPN #### [facility] [address] [place] [address] [address] Kulwant BrennanCreatinine [Mass/Vol]1.36 mg/dLCritically high0.70-1.30The [facility] HospitalComment on above:Performed By: #### HSTROPN #### [facility] [address] [place] [address] [address] Kulwant SellersGFR-AF ANGUILLAN>60Normal>=60The [facility]aritan HospitalComment on above:Performed By: #### HSTROPN #### [facility] [address] [place] [address] [address] Kulwant SellersGFR-NON AF ONOFVXFM02 mL/min/1.62a7Thqqjslpwh low>=60The [facility]itan HospitalComment on above:Performed By: #### HSTROPN #### [facility] [address] [place] [address] [address] Kulwant BrennanGlobulin (S) [Mass/Vol]3.8 g/dLNormalThe [facility] HospitalComment on above:Performed By: #### HSTROPN #### [facility] [address] [place] [address] [address] Kulwant BrennanGlucose [Mass/Vol]99 mg/mOEtoren72-361Die [facility] Comment on above:Performed By: #### HSTROPN #### [facility] [address] [place] [address] [address] Kulwant BrennanPotassium [Moles/Vol]3.8 mmol/LNormal3.5-5.1[facility] Comment on above:Performed By: #### HSTROPN #### [facility] [address] [place] [address] [address] Kulwant BrennanProtein [Mass/Vol]7.7 g/dLNormal6.4-8.2[facility] Comment on above:Performed By: #### HSTROPN #### [facility] [address] [place] [address] [address] Kulwant BrennanSodium [Moles/Vol]141 mmol/FPwkbvq006-877Olc [facility] Comment on above:Performed By: #### HSTROPN #### [facility] [address] [place] [address] Dr. Kulwant BrennanUrea nitrogen [Mass/Vol]24.0 mg/dLCritically high7.0-18.0[facility] - AkronComment on above:Performed By: #### HSTROPN #### [facility] [address] [place] [address] Dr. Kulwant Scott nitrogen/Creatinine [Mass ratio]17.6 mg/mgNoMercy Health St. Anne HospitalComment on above:Performed By: #### HSTROPN #### [facility] [address] [place] [address] Dr. Kulwant BrennanPROTIMEvicky 08-91-1847EAD Coag (PPP) [Relative time]1.04 {INR} NormalSelect Medical Specialty Hospital - AkronComment on above:Performed By: #### PT, PTT ####[facility] [address] [place], [place] [address]Dr. Kulwant Guidry GUIDELINESSEE BELOWTrumbull Regional Medical CenterComment on above: Result Comment: DESIRED INR: 2.0 - 3.0 CONDITIONS NOT LISTED BELOW 2.5 - 3.5 FOR PROSTHETIC HEART VALVE REPLACEMENT 2.5 - 3.5 RECURRENT THROMBOSISPerformed By: #### PT, PTT ####[facility] [address] [place] [address]Dr. Kulwant BrennanPT Coag (PPP) [Time]11.2 sNormal9.0-11.6The [facility]aritan HospitalComment on above:Performed By: #### PT, PTT ####[facility] [address] [place], [place] [address]MkAmarjit SolerCity Of Hope, [place] 90-51-1714uXHD Coag (Bld) [Time]33.1 jRcklfa42.3-36.2The [facility] Comment on above:Performed By: #### PT, PTT ####[facility] [address] [place], [place] [address]KzAmarjit WilcoxNIN, HIGH SENSITIVITYon 17-01-6351INTWDF3.1 pg/mLNormal4.0-76.1The [facility] HospitalComment on above: Result Comment: CUT-OFF POINTS HAVE BEEN ESTABLISHED BASED ON THE FOURTH UNIVERSAL DEFINITIONS OF MYOCARDIAL INFARCTION. THE UPPER REFERENCE LIMIT (URL) OF TROPONIN, DEFINED THE 99TH PERCENTILE OF cTnI DISTRIBUTION IN A REFERENCE POPULATION, HAS BEEN CONFIRMED THE DECISION THRESHOLD FOR [place] DIAGNOSIS.Performed By: #### HSTROPN #### [facility] [address] [place] [address] [address] 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 on 10/04/2021 at 12:09[facility] Medical CenterXR CHEST 1 Von 32-31-9516UH CHEST 1 VEXAM: XR CHEST 1 V at 1037 hours HISTORY: CHEST PAIN, UNSPECIFIED COMPARISON: [...] authenticated by: LUZ ELENA EMERY Date: 2021-10-03 13:00[facility] Northon 06-98-6439IXD Summa HealthComment on above:Result Comment: The KHALIDA IFA KYLE Hep-2 test [...] of the patients clinical condition by medical authority.Performed By: #### [id number] #### [facility] [address] [place] [address], UN[facility] CANCER CENTERANA SCREEN1:40Normal<1:40,1:40The [facility] HospitalComment on above:Result Comment: Test performed using KHALIDA IFA KYLE Hep-2 Test, a pre-standardized assay designed for the qualitative and semi-quantitative detection of antinuclear antibodies.Performed By: #### [id number] #### [facility] [address] [place] [address], UN[facility] CANCER CENTERC REACTIVE PROTEINon 66-67-4626FRU [Mass/Vol]3.1 mg/LNormal 0.0-7.0The [facility] HospitalComment on above:Performed By: #### 43617, 44103 #### [facility] [address] [place] [address], [place] [address]zi 16-10-6988AXPRVT CIT PEP4 UnitsNormal0-19The [facility] HospitalComment on above: Result Comment: INTERPRETIVE INFORMATION: Cyclic Citrullinated Peptide Antibody, IgG 19 [...] be monitored and testing repeated. Performed By: [address] [place] [address] Asphalt Mixer: CHASIDY MccormickHEUMATOID FACTOR SERUMon 03-83-5273TV <78Vscxwl2-31Wqe [facility] HospitalComment on above:Performed By: #### 85977, 81536 #### [facility] [address] [place] [address], USASEDIMENTATION RATEon 04-90-1490GIY RATE12 mm/hrHigh0-10The [facility] Memorial HospitalComment on above:Performed By: #### [id number] #### [facility] [address] [place] [address], USAUS ANDREW DOP LEG BILon 10-04-1594AD ANDREW DOP LEG RIOS EXAMINATION: US ANDREW [...] authenticated by: ERICK DEL ANGEL Date: 2021-09-27 16:12[facility] Head or Brain w/o Contrast*on 37-10-6212DA Head or Brain w/o Contrast*HISTORY: Aphasia. Left eye droop. COMPARISON: None available. [...] and signed by Hollis Cadet on 09/11/2021 1546NormalNortphoenix indian medical centern Veterans Administration Medical CenterComprehensive Metabolic Panelon 07-31-4981Zljcury [Mass/Vol]4.9 g/dLNormal3.6-5.1[facility], [place] SpecialistComment on above: Performed By: #### CMP #### [facility] [address], [place] [id number]/Globulin [Mass ratio]1.8 {ratio}Normal1.0-2.5[facility] [place] [place] SpecialistComment on above:Performed By: #### CMP #### [facility] [address], [place] [id number] [Catalytic activity/Vol]83 U/XXngjgc03-190YbvufzbePaulding County HospitalComment on above:Performed By: #### CMP #### [facility] [address], [place] [id number] [Catalytic activity/Vol]20 U/LNormal9-46[facility] [place] [place] SpecialistComment on above:Result Comment: 03/22/2021 Female reference range changed.Performed By: #### CMP #### [facility] [address], [place] [id number] gap [Moles/Vol]18 mmol/CZcbbzm47-16WvioowobPaulding County HospitalComment on above:Result Comment: Effective 04/27/2019 reference range changed.Performed By: #### CMP #### [facility] [address], [place] [id number] [Catalytic activity/Vol]18 U/QWlunqg70-52Gumowvwu [facility] SpecialistComment on above:Performed By: #### CMP #### [facility] [address] [place], [place] [id number] [Mass/Vol]0.33 mg/dLNormal0.30-1.20[facility] SpecialistComment on above:Performed By: #### CMP #### [facility] [address] [place], [place] [id number]/CREA20 RatioNormal6-22NoUniversity Hospitals Health System Specialist Comment on above:Performed By: #### CMP #### [facility] [address], [place] [id number] [Mass/Vol]8.4 mg/dLLow8.6-10.2[facility] SpecialistComment on above:Performed By: #### CMP #### [facility] [address], [place] [id number] [Moles/Vol]106 mmol/BPqtnzg43-571Ymywvlsq [facility] SpecialistComment on above:Performed By: #### CMP #### [facility] [address], [place] [id number] [Moles/Vol]24 mmol/RFcjdkf16-70Irlircgu [facility] SpecialistComment on above:Performed By: #### CMP #### [facility] [address], [place] [id number] [Mass/Vol]1.4 mg/dLNormal0.7-1.4NoUniversity Hospitals Health System SpecialistComment on above:Performed By: #### CMP #### [facility] [address], [place] [id number] mL/min/1.12m7Ncy>60NoU[facility] Feed Research Aide Comment on above:Performed By: #### CMP #### [facility] [address], [place] [id number] mL/min/1.50n9Wod>60[facility]Fost[facility] Feed Research Aide Comment on above:Performed By: #### CMP #### [facility] [address] [place] [id number] (S) [Mass/Vol]2.7 g/dLNormal1.9-3.7NoUniversity Hospitals Health System SpecialistComment on above:Performed By: #### CMP #### [facility] [address], [place] [id number] [Mass/Vol]98 mg/rHKxobqg97-08Frwbgahb [facility] SpecialistComment on above:Result Comment: For FASTING Glucose --- ADA reference ranges: Normal 65-99 mg/dl Prediabetes 100-125 Diabetes >/= 126Performed By: #### CMP #### [facility] [address], [place] [id number] [Moles/Vol]5.0 mmol/LNormal3.5-5.5NoUniversity Hospitals Health System SpecialistComment on above:Performed By: #### CMP #### [facility] [address], [place] [id number] [Mass/Vol]7.6 g/dLNormal6.1-8.1[facility] [place] [place] SpecialistComment on above:Performed By: #### CMP #### [facility] [address], [place] [id number] [Moles/Vol]143 mmol/DUtsohu996-104Glcgcuzx [facility] SpecialistComment on above:Performed By: #### CMP #### [facility] [address], [place] [id number] nitrogen [Mass/Vol]30 mg/dLHigh7-25[facility] SpecialistComment on above:Performed By: #### CMP #### [facility] [address], [place] [id number] 04-56-1024Fatbkdgje [Mass/Vol]2.0 mg/dLNormal 1.5-2.3[facility] SpecialistComment on above:Performed By: #### VITD, MG, PHOS #### [facility] [address], [place] [id number] Hormone, [place] 82-96-9478GMV71.53 pg/mLLow 16.00-65.00[facility] [place] SpecialistComment on above:Performed By: #### PTH* #### [facility] [address], [place] [id number] 89-01-4392Dmmorbczw [Mass/Vol]4.3 mg/dLNormal 2.2-4.4[facility] [place] SpecialistComment on above:Performed By: #### VITD, MG, PHOS #### [facility] [address], [place] [id number] - CALCIUM,IONIZEDon 12-32-1610IFVUKXV, IONIZED4.0 mg/dLLow 4.8-5.6[facility] [place] SpecialistComment on above:Order Comment: [facility] performed at: [facility], [facility], [address] [place] [address], [address] [place] [address], [phone], Asphalt Mixer: Janes Vasquez MDQuest Collection Date/Time: [id number] Results Received Date/Time: [id number] Reported Date/Time: [id number] By: #### CMP, CBCAD, TSH #### [facility] [address], [place] [id number] D 25-OHon 85-86-7197WSW D 25 OH27 ng/mlLow>29[facility] [place] [place] SpecialistComment on above:Result Comment: Vitamin D Status Deficiency <20 ng/mL Insufficiency 20-29 ng/mL Optimal 30-100 ng/mL Possible Toxicity >=150 ng/mLPerformed By: #### VITD, MG, PHOS #### [facility] [address], [place] [id number] Blood Count with Auto Diffon 40-10-7413Hikxnfsnz (Bld) [#/Vol]0.04 10*3/uLNormal0.00-0.20[facility] SpecialistComment on above:Performed By: #### CMP, CBCAD, TSH #### [facility] [address], [place] [id number]/100 WBC (Bld)0.6 %NormalAkron Children'S Hospital SpecialistComment on above:Performed By: #### CMP, CBCAD, TSH #### [facility] [address], [place] [id number] (Bld) [#/Vol]0.28 10*3/uLNormal0.02-0.50[facility] SpecialistComment on above:Performed By: #### CMP, CBCAD, TSH #### [facility] [address], [place] [id number]/100 WBC (Bld)4.1 %[facility] SpecialistComment on above:Performed By: #### CMP, CBCAD, TSH #### [facility] [address], [place] [id number] distribution width (RBC) [Ratio]14.5 %Normal 11.0-15.0[facility] SpecialistComment on above:Performed By: #### CMP, CBCAD, TSH #### [facility] [address], [place] [id number] (Bld) [Volume fraction]43.0 %Igcjfu03.5-50.0 [facility] SpecialistComment on above:Performed By: #### CMP, CBCAD, TSH #### [facility] [address], [place] [id number] (Bld) [Mass/Vol]13.7 g/pOOhqbdb18.0-17.1[facility] SpecialistComment on above:Performed By: #### CMP, CBCAD, TSH #### [facility] [address], [place] [id number] (Bld) [#/Vol]1.6 10*3/uLNormal0.9-3.9[facility] SpecialistComment on above:Performed By: #### CMP, CBCAD, TSH #### [facility] [address], [place] [id number]/100 WBC (Bld)22.6 %NormalNoUniversity Hospitals Health System SpecialistComment on above:Performed By: #### CMP, CBCAD, TSH #### [facility] [address], [place] [id number] (RBC) [Entitic mass]26.1 pgLow27.0-33.0NoUniversity Hospitals Health System SpecialistComment on above:Performed By: #### CMP, CBCAD, TSH #### [facility] [address], [place] [id number] (RBC) [Mass/Vol]31.9 g/dLLow32.0-36.0NoUniversity Hospitals Health System SpecialistComment on above:Performed By: #### CMP, CBCAD, TSH #### [facility] [address], [place] [id number] (RBC) [Entitic vol]82 pFSkhgmk63-224Xjzrfost [facility] SpecialistComment on above:Performed By: #### CMP, CBCAD, TSH #### [facility] [address], [place] [id number] (Bld) [#/Vol]0.7 10*3/uLNormal0.2-0.9NoUniversity Hospitals Health System SpecialistComment on above:Performed By: #### CMP, CBCAD, TSH #### [facility] [address], [place] [id number]/100 WBC (Bld)10.1 %NormalNoUniversity Hospitals Health System SpecialistComment on above:Performed By: #### CMP, CBCAD, TSH #### [facility] [address], [place] [id number] (Bld) [#/Vol]4.3 10*3/uLNormal1.5-7.8NoUniversity Hospitals Health System SpecialistComment on above:Performed By: #### CMP, CBCAD, TSH #### [facility] [address], [place] [id number]/100 WBC (Bld)62.0 %NormalNoUniversity Hospitals Health System SpecialistComment on above:Performed By: #### CMP, CBCAD, TSH #### [facility] [address], [place] [id number] mean volume (Bld) [Entitic vol]10.90 fLNormal 7.50-12.50NoUniversity Hospitals Health System SpecialistComment on above:Performed By: #### CMP, CBCAD, TSH #### [facility] [address], [place] [id number] (Bld) [#/Vol]250 10*3/rNZhkrez515-293Phqutras [facility] SpecialistComment on above:Performed By: #### CMP, CBCAD, TSH #### [facility] [address], [place] [id number] (Bld) [#/Vol]5.25 10*6/uLNormal4.20-5.80NoUniversity Hospitals Health System SpecialistComment on above:Performed By: #### CMP, CBCAD, TSH #### [facility] [address], [place] [id number]-OR07.3 cOXqtryd38.0-50.0NoUniversity Hospitals Health System Specialist Comment on above:Performed By: #### CMP, CBCAD, TSH #### [facility] [address], [place] [id number] (Bld) [#/Vol]6.9 10*3/uLNormal3.8-11.0NoUniversity Hospitals Health System SpecialistComment on above:Performed By: #### CMP, CBCAD, TSH #### [facility] [address], [place] [id number] Metabolic Panelon 63-51-5410Ppnjzoa [Mass/Vol] 4.7 g/dLNormal3.6-5.1[facility] SpecialistComment on above:Performed By: #### CMP, CBCAD, TSH #### [facility] [address], [place] [id number]/Globulin [Mass ratio]1.8 {ratio}Normal1.0-2.5NoUniversity Hospitals Health System SpecialistComment on above:Performed By: #### CMP, CBCAD, TSH #### [facility] [address], [place] [id number] [Catalytic activity/Vol]87 U/EYwbqqi85-714Eybtheie [facility], [place] SpecialistComment on above:Performed By: #### CMP, CBCAD, TSH #### [facility] [address], [place] [id number] [Catalytic activity/Vol]22 U/LNormal9-46NortFostoria City Hospital Medical SpecialistComment on above:Result Comment: 03/22/2021 Female reference range changed.Performed By: #### CMP, CBCAD, TSH #### [facility] [address], [place] [id number] gap [Moles/Vol]20 mmol/OUmiusk31-64Ydtqfonm [place] [facility] SpecialistComment on above:Result Comment: Effective 04/27/2019 reference range changed.Performed By: #### CMP, CBCAD, TSH #### [facility] [address], [place] [id number] [Catalytic activity/Vol]18 U/KZctkzd99-25Yzavkmdt [place] [facility] SpecialistComment on above:Performed By: #### CMP, CBCAD, TSH #### [facility] [address], [place] [id number]/CREA19 RatioNormal6-22NoUniversity Hospitals Health System Specialist Comment on above:Performed By: #### CMP, CBCAD, TSH #### [facility] [address], [place] [id number] [Mass/Vol]7.4 mg/dLLow8.6-10.2[facility] [place] SpecialistComment on above:Performed By: #### CMP, CBCAD, TSH #### [facility] [address] [facility] [id number] [Moles/Vol]106 mmol/PYcsexb97-620Yielvbgb [facility] SpecialistComment on above:Performed By: #### CMP, CBCAD, TSH #### [facility] [address] [place] [id number] [Moles/Vol]20 mmol/EWrvxfd45-47Ivrjwewz [place] [facility] SpecialistComment on above:Performed By: #### CMP, CBCAD, TSH #### [facility] [address], [place] [id number] [Mass/Vol]1.5 mg/dLHigh0.7-1.4NoUniversity Hospitals Health System SpecialistComment on above:Performed By: #### CMP, CBCAD, TSH #### [facility] [address], [place] [id number] mL/min/1.52e6Ctr>60[facility] Specialist Comment on above:Performed By: #### CMP, CBCAD, TSH #### [facility] [address], [place] [id number] mL/min/1.60v0Ymq>60[facility] Specialist Comment on above:Performed By: #### CMP, CBCAD, TSH #### [facility] [address], [place] [id number] (S) [Mass/Vol]2.6 g/dLNormal1.9-3.7NoUniversity Hospitals Health System SpecialistComment on above:Performed By: #### CMP, CBCAD, TSH #### [facility] [address], [place] [id number] [Mass/Vol]112 mg/pFCsdf80-77Lycgmxmd [place] [facility] SpecialistComment on above:Result Comment: For FASTING Glucose --- ADA reference ranges: Normal 65-99 mg/dl Prediabetes 100-125 Diabetes >/= 126Performed By: #### CMP, CBCAD, TSH #### [facility] [address], [place] [id number] [Moles/Vol]4.3 mmol/LNormal3.5-5.5NoUniversity Hospitals Health System SpecialistComment on above:Performed By: #### CMP, CBCAD, TSH #### [facility] [address], [place] [id number] [Mass/Vol]7.3 g/dLNormal6.1-8.1[facility]Cl[facility] SpecialistComment on above:Performed By: #### CMP, CBCAD, TSH #### [facility] [address], [place] [id number] [Moles/Vol]142 mmol/OEuogyo797-328Dmplnhiv [place] [facility] SpecialistComment on above:Performed By: #### CMP, CBCAD, TSH #### [facility] [address], [place] [id number]<0.3NormalNortSelect Medical Cleveland Clinic [facility], [facility] SpecialistComment on above:Performed By: #### CMP, CBCAD, TSH #### [facility] [address], [place] [id number] nitrogen [Mass/Vol]27 mg/dLHigh7-25NoUniversity Hospitals Health System SpecialistComment on above:Performed By: #### CMP, CBCAD, TSH #### [facility] [address], [place] [id number] - TROPONIN Ion 69-19-0813RZFSQFQW I3 ng/LNormal< OR = 47 [facility] SpecialistComment on above:Order Comment: [facility] performed at: QPT, [facility], [address] [place] [address], [address] [place] [address], [phone], Asphalt Mixer: Janes Vasquez MDQuest Collection Date/Time: [id number] Results Received Date/Time: [id number] Reported Date/Time: [id number] Comment: In accord with published recommendations, serial testing of troponin I at intervals of 2 to 4 hours for up to 12 to 24 hours is suggested in order to corroborate a single troponin I result. An elevated troponin alone is not sufficient to make the diagnosis of NH.Performed By: #### CMP, CBCAD, TSH #### [facility] [address], [place] [id number] 87-80-3933EGI3.917 uIU/mLNormal0.400-4.500NoUniversity Hospitals Health System SpecialistComment on above:Performed By: #### CMP, CBCAD, TSH #### [facility] [address], [place] [id number] Chest WO contraston 69-95-5706MWNBPSRFYK: 1. Mild bronchiectasis in both lower lobes, the right middle lobe and the lingula, consistent with remote or chronic airways inflammation. In this distribution, sequelae of chronic aspiration pneumonitis must be considered. A type III hiatal hernia is noted. 2. Fusiform dilation of the ascending thoracic aorta, stable in appearance since the exam dated 01/05/2021. Small Stock Facer: PSCBrandan Transcribe Date/Time: May 01 2021 8:27A Dictated by : MASSIMO OAKES MD This examination was interpreted and the report reviewed and electronically signed by: MASSIMO OAKES MD on May 01 2021 8:49AM [facility] [place] DIVISION OF RADIOLOGY* * *Final Report* * * DATE OF EXAM: May 01 2021 8:21AM [facility] 0541 - CT CHEST WO [...] A few calcified splenic granulomata are noted. Chip Separator (topogram) images: No additional findings. DIVISION OF RADIOLOGYProvider, [facility] [place] - 05/01/2021 * * *Final Report* * * DATE OF EXAM: May 01 2021 8:21AM [facility] 0541 - CT CHEST WO [...] A few calcified splenic granulomata are noted. Chip Separator (topogram) images: No additional findings. IMPRESSION IMPRESSION: 1. Mild bronchiectasis in both lower lobes, the right middle lobe and the lingula, consistent with remote or chronic airways inflammation. In this distribution, sequelae of chronic aspiration pneumonitis must be considered. A type III hiatal hernia is noted. 2. Fusiform dilation of the ascending thoracic aorta, stable in appearance since the exam dated 01/05/2021. Small Stock Facer: PSCB Transcribe Date/Time: May 01 2021 8:27A Dictated by : MASSIMO OAKES MD This examination was interpreted and the report reviewed and electronically signed by: MASSIMO OAKES MD on May 01 2021 8:49AM EST [facility] HospitalRad[facility] Study observation (narrative)[facility] Chest WO contrastOrdered By: Ccf Provider on 53-38-8207Bfwprhwnf ClinicCreatinineon 33-87-6980Bvjxgcwpyv mass conc1.47 mg/dLHigh0.50-1.30EMH HealthcareComment on above:Performed By: #### [id number] ####[facility] [address] [place], [place] [address]QPQ/1.73 sq M.predicted MDRD vol rate/area48 mL/min/{1.73_m2}NormalEMH HealthcareComment on above:Result Comment: Interpretation for Chronic Kidney Disease:Stages 1&2 >60 Healthy or potential kidney damage.Mild decrease of GFR.Stage 3 30-59 Moderate decrease of GFR.Stage 4 15-29 Severe decrease of GFR.Stage 5 <15 Kidney failure or on dialysis. Performed By: #### [id number] ####[facility] [address] [place], [place] [address]Xitsyefnfen Panelon 98-87-0755Yxpgt gap 3 molar conc 10 mmol/XHsoapm06-70AWH HealthcareComment on above:Performed By: #### [id number] ####[facility] [address] [place] [address] Chloride molar utfl360 mmol/BXmtj59-081XSJ HealthcareComment on above:Performed By: #### [id number] ####[facility] [address] [place], [place] [address]WQG2 molar conc (Bld)25 mmol/ESdpjav17-16MXE HealthcareComment on above:Performed By: #### [id number] ####[facility] [address] [place], [place] [address]Ctpuznxyc molar conc4.2 mmol/LNormal 3.5-5.1EMH HealthcareComment on above:Performed By: #### [id number] ####[facility] [address] [place], [place] [address]Lpjvol molar zypb692 mmol/OCweask042-362XMM HealthcareComment on above:Performed By: #### [id number] ####[facility] [address] [place], [place] [address]Yiwn Nitrogenon 10-92-1747Nbph nitrogen mass conc32 mg/dLHigh6-23EMH HealthcareComment on above:Performed By: #### [id number] ####[facility] [address] [place] [address] Vital Signs Date TimeVital SignValuePerforming XuonuxxkwRqxvoctt70-11-8145 10:130400Body cxxogs909.1 cmRadha Burris MD Work Phone: [phone] CenterLipdctszjx85-48-6359 10:130400Body mass index (BMI) [Ratio]30.21 kg/h7NrkyqqwmRadha Burris MD Work Phone: [phone] [address]-25-2025 10:13040Body cheyia417.57 kgRadha Burris MD Work Phone: [phone] [place] [address]-25-2025 10:130400Diastolic blood cfkbyzqt70 mm[Hg]Radha Burris MD Work Phone: [phone]32[place] [address]Zkbuwwbefq46-51-1532 10:130Heart rate80 /min Radha Burris MD Work Phone: [phone] [place] [address]-25-2025 10:131025QvY0% (BldA) [Mass fraction]96 %Radha Burris MD Work Phone: [phone] [address]Zgzeswsquf67-03-4295 10:130Systolic blood iolmfizz633 mm[Hg]Radha Burris MD Work Phone: [phone] CenterDhtmurqacq04-22-8035 09:00-0400Body mass index (BMI) [Ratio]29.12 kg/l7QoyyaShivani Adams VOLTAGE REGULATOR ASSEMBLER Work Phone: [phone] [address]Jdiwibcakw19-64-7830 09:00-0400Body hvyepw961.31 kgShivani Adams VOLTAGE REGULATOR ASSEMBLER Work Phone: [phone] [address]Xllqpchejw68-50-0045 09:00-0400Diastolic blood aijtxlmn47 mm[Hg]Shivani Adams VOLTAGE REGULATOR ASSEMBLER Work Phone: [phone] [address]Fjroizpepf49-53-3760 09:00-0400Heart rate75 /min Shivani Adams VOLTAGE REGULATOR ASSEMBLER Work Phone: [facility] JosephKpagujgsjr22-96-9633 09:00-0955KjH3% (BldA) [Mass fraction]99 %Shivani Adams VOLTAGE REGULATOR ASSEMBLER Work Phone: [facility]. JosephKawuodxuyh92-61-4680 09:00-0400Systolic blood toxcwdpe521 mm[Hg]Shivani Adams VOLTAGE REGULATOR ASSEMBLER Work Phone: [facility]OM[facility]. JosephXgievesszt42-42-2117 11:21-0400Body hwvgua589.1 cmKatyris Bernstein GLASS TINTER.WORKFORCE CONSULTANT Work Phone: [facility]07-22-2025 11:21-0400Body mass index (BMI) [Ratio]28.31 kg/c1Lypactwcl Bernstein GLASS TINTER.WORKFORCE CONSULTANT Work Phone: [phone]07-22-2025 11:21-0400Body djrjyu826.13 kgAbby Bernstein GLASS TINTER.WORKFORCE CONSULTANT Work Phone: [phone]07-22-2025 11:21-0400Diastolic blood rrmywnlt51 mm[Hg]Abby Bernstein GLASS TINTER.WORKFORCE CONSULTANT Work Phone: [phone]07-22-2025 11:21-0400Heart rate83 /min Abby Bernstein GLASS TINTER.WORKFORCE CONSULTANT Work Phone: [phone]07-22-2025 11:21-9436TxG0% (BldA) [Mass fraction]98 %Abby Bernstein GLASS TINTER.WORKFORCE CONSULTANT Work Phone: [phone]07-22-2025 11:21-0400Systolic blood zhickshw858 mm[Hg]Abby Bernstein GLASS TINTER.WORKFORCE CONSULTANT Work Phone: [phone]07-10-2025 13:07-0400Body .1 cmPaul Biedenbach DO Work Phone: [facility] CenterVbdsassdpv19-28-9920 13:07-0400Body mass index (BMI) [Ratio]28.89 kg/m2Paul Biedenbach DO Work Phone: noM[facility] at St. JosephPuuorrgquf42-28-1035 13:07-0400Body kusmlc279.4 kgPaul Biedenbach DO Work Phone: [phone]-[facility] CenterAygmihelxn96-62-8009 14:39-0400Body ppnaqz517.1 cmPaul Biedenbach DO Work Phone: [phone]-[facility] CenterWerutvmfzf94-27-5172 14:39-0400Body mass index (BMI) [Ratio]28.89 kg/m2Paul Biedenbach DO Work Phone: [facility] Medical CenterDjbxeifhzy73-48-2790 14:39-0400Body hgnuch669.4 kgPaul Biedenbach DO Work Phone: [phone] CenterYkigdkyjsj21-61-9039 15:12-0400Body .1 cmPaul Biedenbach DO Work Phone: [phone] CenterYwzdwkenko99-20-6563 15:12-0400Body mass index (BMI) [Ratio]28.89 kg/m2Paul Biedenbach DO Work Phone: [phone]-[facility] HospitalMer[facility] Medical CenterTmpbgvaawj82-86-6217 15:12-0400Body aednkt494.4 kgPaul Biedenbach DO Work Phone: [phone]-[facility] CenterRglsqawbri69-73-7685 14:29-0400Body iglzig658.1 cmPaul Biedenbach DO Work Phone: [phone]-[facility] CenterYcvkyeqglh44-06-5522 14:29-0400Body mass index (BMI) [Ratio]28.89 kg/m2Paul Biedenbach DO Work Phone: [phone] [place], [place] [address]Bmlifrondt69-35-0353 14:29-0400Body joegwh589.4 kgPaul Biedenbach DO Work Phone: [phone] HospitalP[facility] CenterZtccgtwodc16-75-4845 14:53-0400Body iisrvs689.1 Iesha Adams VOLTAGE REGULATOR ASSEMBLER Work Phone: [facility] Medical CenterYldqczzifl36-00-7985 14:53-0400Body mass index (BMI) [Ratio]28.98 kg/s2LojuuShivani Adams VOLTAGE REGULATOR ASSEMBLER Work Phone: [phone] [place], [place] 4920305-14-2025 14:53-0400Body temperature 98.91 [degF]Shivani Adams VOLTAGE REGULATOR ASSEMBLER Work Phone: [phone] [place], [place] 4920305-14-2025 14:53-0400Body kiowwl019.76 kgShivani Adams VOLTAGE REGULATOR ASSEMBLER Work Phone: [phone] [place], [place] 4920305-14-2025 14:53-0400Diastolic blood ifzocnjj70 mm[Hg]Shivani Adams VOLTAGE REGULATOR ASSEMBLER Work Phone: [phone] [place], [place] 49[address]305-14-2025 14:53-0400Heart rate77 /min Shivani Adams VOLTAGE REGULATOR ASSEMBLER Work Phone: [phone] [place], [place] 4920305-14-2025 14:53-5703DtJ8% (BldA) [Mass fraction]98 %Shivani Adams VOLTAGE REGULATOR ASSEMBLER Work Phone: 1(595)[address] [place], [place] 4920305-14-2025 14:53-0400Systolic blood fcjtonko298 mm[Hg]Shivani Adams VOLTAGE REGULATOR ASSEMBLER Work Phone: 1(900)[address] [place], [place] 4920305-02-2025 14:10-0400Body mass index (BMI) [Ratio]28.96 kg/u1CppkhyvhRadha Burris MD Work Phone: 1(390)[address] [place], [place] 4920305-02-2025 14:10-0400Body temperature 99.1 [degF]Radha Burris MD Work Phone: 1(175)[address] [place], [place] 4920305-02-2025 14:10-0400Body .67 kgRadha Burris MD Work Phone: 1(806)[address] [place], [place] 4920305-02-2025 14:10-0400Diastolic blood mm[Hg]Radha Burris MD Work Phone: 1(108)[address] [place], [place] 4920305-02-2025 14:10-0400Heart rate76 /min Radha Burris MD Work Phone: 1(983)[address] [place], [place] 4920305-02-2025 14:10-1261QmC0% (BldA) [Mass fraction]96 %Radha Burris MD Work Phone: [facility] JosephYtkftdgqsp98-39-5691 14:10-0400Systolic blood bglyvovp379 mm[Hg]Radha Burris MD Work Phone: [facility] JosephRkoorluajc40-83-2477 08:53-0400Body pjpbir495.1 cmChristophreese Pina DO Work Phone: [facility] JosephYbdwoiggee13-99-3558 08:53-0400Body mass index (BMI) [Ratio]28.08 kg/u0Druzedbvjzd Hassett DO Work Phone: [facility] JosephMhfinntytx67-48-6706 08:53-0400Body tzircp252.22 kgChristopher Pina DO Work Phone: [facility] JosephTyppphplds86-04-8232 08:53-0400Diastolic blood xmsipfgf68 mm[Hg]Christnadine Pina DO Work Phone: [facility] CenterZwhweqyxnb47-83-4601 08:53-0400Heart rate80 /min Christnadine Pina DO Work Phone: [facility] JosephMscykashaa26-37-4574 08:53-0400Systolic blood juxpgyky761 mm[Hg]Christnadine Pina DO Work Phone: [facility] JosephDhlyowwxxb37-13-9074 09:48-0400Body xggypm106.1 Thad Redding MD Work Phone: [facility] JosephNptdhlmect69-20-0165 09:48-0400Body mass index (BMI) [Ratio]29.7 kg/u7YgducLatoya Redding MD Work Phone: [facility] JosephTghmwvipjo28-39-6532 09:48-0400Body befmks806.57 kgLatoya Redding MD Work Phone: [facility] JosephUxfwqykjat50-95-1782 09:48-0400Diastolic blood odxgsbaa04 mm[Hg]Latoya Redding MD Work Phone: [facility] JosephVxpcfnatuu55-98-9100 09:48-0400Heart rate78 /min Latoya Redding MD Work Phone: 1(854)321-[address] [place], [place] [address]Fuorudyzsu45-11-5255 09:48-0400Respiratory rate18 /minLatoya Redding MD Work Phone: 1(358)759-[address] [place], [place] [address]Plpyhmxhod25-76-0196 09:48-7235RmR0% (BldA) [Mass fraction]96 %Latoya Redding MD Work Phone: 1(896)[address]04-21-2025 09:48-0400Systolic blood ebvfwtcd988 mm[Hg]Latoya Redding MD Work Phone: 1(721)[address]03-17-2025 10:01-0400Body .1 cmAgregg Redding MD Work Phone: 1(026)[address] [place], [place] 0546803-17-2025 10:01-0400Body mass index (BMI) [Ratio]29.35 kg/w8WvehfLatoya Redding MD Work Phone: 1(294)[facility] [place], [place] [address]Ftrmsjrqfd67-30-3578 10:01-0400Body drboqw410.21 kgLatoya Redding MD Work Phone: 1(567)[address]03-17-2025 10:01-0400Diastolic blood hmycvsth53 mm[Hg]Latoya Redding MD Work Phone: 1(001)[address] [place], [place] [address]Pnnqgvjcaz02-86-1364 10:01-0400Heart rate77 /min Latoya Redding MD Work Phone: 1(502)[address] [place], [place] [address]Emvnppahlu54-75-8370 10:01-0400Respiratory rate16 /minLatoya Redding MD Work Phone: 1(015)[address] [place], [place] [address]Yvzspcbfwc75-96-8871 10:01-6064IbP3% (BldA) [Mass fraction]98 %Latoya Redding MD Work Phone: 1(576)[facility] [place], [place] [address]Admbcjipwb89-88-4030 10:01-0400Systolic blood fknzvvaj428 mm[Hg]Latoya Redding MD Work Phone: 1(215)[address]03-03-2025 13:10-0500Body mass index (BMI) [Ratio]29.19 kg/r0Cnhaijerwth Silvana DO Work Phone: noM[facility] JosephAvmvcdhkcm55-54-5836 13:10-0500Body wexgmj420.58 kgChristopher Silvana DO Work Phone: [facility] CenterQevbtvmync94-47-9934 13:10-0500Diastolic blood whvkwuna87 mm[Hg]Christzaider Silvana DO Work Phone: [facility] CenterKjsjrhoytc67-99-2998 13:10-0500Heart rate91 /min Christopher Silvana DO Work Phone: [facility] CenterNzmleqfdwc93-50-6662 13:10-5010TtP0% (BldA) [Mass fraction]98 %Christnadine Pina DO Work Phone: [facility] CenterNolyyuukuw32-41-2082 13:10-0500Systolic blood agqxuvaj000 mm[Hg]Christzaider Silvana DO Work Phone: [facility] CenterGtcqvlqdei89-68-8238 09:45-0500Body mass index (BMI) [Ratio]29.54 kg/q6UhcayoicEleonora Leo VOLTAGE REGULATOR ASSEMBLER Work Phone: [facility] CenterPxwnoynopw40-52-5980 09:45-0500Body temperature 95.9 [degF]Eleonora Leo VOLTAGE REGULATOR ASSEMBLER Work Phone: [facility] CenterKlnrdhjhqx47-56-4413 09:45-0500Body abmcbq798.94 kgEleonora Leo VOLTAGE REGULATOR ASSEMBLER Work Phone: [facility] CenterDjsxnzsaao71-25-1129 09:45-0500Diastolic blood wpjpaclu81 mm[Hg]Eleonora Leo VOLTAGE REGULATOR ASSEMBLER Work Phone: [facility] CenterMyvaixsghf54-90-3759 09:45-0500Heart rate67 /min Eleonora Leo VOLTAGE REGULATOR ASSEMBLER Work Phone: [facility] CenterPdruimoipl37-38-1835 09:45-8465AqD1% (BldA) [Mass fraction]99 %Eleonora Leo VOLTAGE REGULATOR ASSEMBLER Work Phone: [facility] CenterLtxoujnbwv32-90-2895 09:45-0500Systolic blood yztkdnxz020 mm[Hg]Eleonora Simonradha VOLTAGE REGULATOR ASSEMBLER Work Phone: 1(711)404[place] [address]-17-2024 08:51-0400Body yxfuip554.1 cmRadha Burris MD Work Phone: 1(808)[address] [place] [address]-17-2024 08:51-0400Body mass index (BMI) [Ratio]27.43 kg/m4DnyyfmhyRadha Burris MD Work Phone: 1(126)[address] [place] [address]-17-2024 08:51-0400Body .68 kgRadha Burris MD Work Phone: 1(448)[address] [place] [address]-17-2024 08:51-0400Diastolic blood mznxeimn49 mm[Hg]Radha Burris MD Work Phone: 1(728)[facility] [place] [address]-17-2024 08:51-0400Heart rate74 /min Radha Burris MD Work Phone: 1(366)[facility] [place] [address]-17-2024 08:51-2805RtR8% (BldA) [Mass fraction]97 %Radha Burris MD Work Phone: 1(692)[address] [place] [address]-17-2024 08:51-0400Systolic blood mm[Hg]Radha Burris MD Work Phone: 1(822)[address] [place], [place] 4920309-30-2024 16:04-0400Body mass index (BMI) [Ratio]27.04 kg/l4Sxhbvzj Vigil VOLTAGE REGULATOR ASSEMBLER Work Phone: 1(183)[address] [place] [address]-30-2024 16:04-0400Body temperature 97.3 [degF]Sofia Hellerk VOLTAGE REGULATOR ASSEMBLER Work Phone: 1(865)[address] [place] [address]-30-2024 16:04-0400Body tqiogg411.14 kgChchyna Vigil VOLTAGE REGULATOR ASSEMBLER Work Phone: 1(760)[address] [place] [address]-30-2024 16:04-0400Diastolic blood mm[Hg]Sofia Vigil VOLTAGE REGULATOR ASSEMBLER Work Phone: 1([phone] [address]Dkjhkbusyo31-94-7863 16:04-0400Systolic blood dlxikccs419 mm[Hg]Sofia Sommerspatrick VOLTAGE REGULATOR ASSEMBLER Work Phone: 1(766)578-10[place] [address]Ligpizimyp32-36-6262 13:24-0400Body fdiveb804.1 Iesha Adams VOLTAGE REGULATOR ASSEMBLER Work Phone: 1([phone] CenterVvhtjusthp66-05-2950 13:24-0400Body mass index (BMI) [Ratio]27.53 kg/s6DsifxShivani Adams VOLTAGE REGULATOR ASSEMBLER Work Phone: 1(395)908-48[place] [address]Fpkedupefi49-54-8560 13:24-0400Body vnhaap793.05 kgShivani Adams VOLTAGE REGULATOR ASSEMBLER Work Phone: 1(167)845-[address] [place] [address]-23-2024 13:24-0400Diastolic blood bpqhwxal65 mm[Hg]Shivani Adams VOLTAGE REGULATOR ASSEMBLER Work Phone: 1(407)907-[address] [place], [place] [address]Grmtkprmcv06-08-1702 13:24-0400Heart rate84 /min Shivani Adams VOLTAGE REGULATOR ASSEMBLER Work Phone: 1(510)131-[address] [place] [address]-23-2024 13:24-7078BbK6% (BldA) [Mass fraction]96 %Shivani Adams VOLTAGE REGULATOR ASSEMBLER Work Phone: 1(149)705-[address] [place] [address]-23-2024 13:24-0400Systolic blood mm[Hg]Shivani Adams VOLTAGE REGULATOR ASSEMBLER Work Phone: 1(289)553-[address] [place], [place] [address]Klbfupzodh63-74-0422 09:31-0400Body yuujce385.1 Estevan Burris MD Work Phone: 1(315)465-[address] [place] [address]-03-2024 09:31-0400Body mass index (BMI) [Ratio]27.62 kg/q7NvjuakmrRadha Burris MD Work Phone: 1(597)777-[address] [place] [address]-03-2024 09:31-0400Body jerqxd647.41 Ronni Burris MD Work Phone: 1(737)481-[address] [place] [address]-03-2024 09:31-0400Diastolic blood lvvgswut49 mm[Hg]Radha Burris MD Work Phone: 1(527)380-94[facility] CenterYyveyvousx03-04-9566 09:31-0400Heart rate79 /min Radha Burris MD Work Phone: 1(917)[address]09-03-2024 09:31-6539ZgO3% (BldA) [Mass fraction]97 %Radha Burris MD Work Phone: 1(752)853[facility]93[facility] CenterBpwiddhqtu95-42-5171 09:31-0400Systolic blood eokfdfen649 mm[Hg]Radha Burris MD Work Phone: 1(771)[address]12-26-2023 11:58-0500Diastolic blood bjebszum02 mm[Hg]MD Radha Burris Work Phone: 1(553)[address] [place], [place] 4883512-26-2023 11:58-0500 Heart rate60 /minMD Radha Burris Work Phone: 1(599)[address] [place], [place] 4883512-26-2023 11:58-0500 Respiratory rate16 /minMD Radha Burris Work Phone: 1(602)[address]12-26-2023 11:58-0500 SaO2% (BldA) [Mass fraction]100 %MD Radha Burris Work Phone: 1(978)[address] [place], [place] 4883512-26-2023 11:58-0500 Systolic blood pfmfydqm135 mm[Hg]MD Radha Burris Work Phone: 1(088)[address] [place], [place] 4883512-26-2023 09:35-0500 Body ilpcma067.12 cmMD Radha Burris Work Phone: 1(649)[address]12-26-2023 09:35-0500 Body jaagua736.13 kgMD Radha Burris Work Phone: 1(555)[address]11-29-2023 14:00-0500 Body heightImad Asaad Other [facility] Other 11-29-2023 14:00-0500Body avwkxl222.58 cmMD Radha Burris Work Phone: [facility]11-29-2023 14:00-0500 Body mass index (BMI) [Ratio]30.34 kg/m2Imad Asaad Other [facility] [employer] Other 11-29-2023 14:00-0500Body yrlaaj464.08 kgImad Asaad Other [facility] [employer] Other 11-29-2023 14:00-0500Body .07 kgMD Radha Pickardsarina Fatuma Work Phone: [facility]11-29-2023 14:00-0500 Diastolic blood dcszegtg47 mm[Hg]Imad Asaad Other [facility]11-29-2023 14:00-0500 Systolic blood tjeamuzb418 mm[Hg]Imad Asaad Other [facility]10-12-2023 14:51-0400 Body mass index (BMI) [Ratio]28.89 kg/l2ZjsdjfvYossi Chen MD Work Phone: [facility]10-12-2023 14:51-0400 Body .4 Christiano Chen MD Work Phone: [facility]09-11-2023 15:12-0400 Body yleyqd078.1 cmCjosé miguel Richardson APRN.WORKFORCE CONSULTANT Work Phone: [facility]09-11-2023 15:12-0400Body jifpqd090.76 kgCatotis Richardson APRN.WORKFORCE CONSULTANT Work Phone: [facility]09-11-2023 15:12-0400Diastolic blood ietatesx16 mm[Hg]Kassie Richardson GLASS TINTER.WORKFORCE CONSULTANT Work Phone: [facility]09-11-2023 15:12-0400Heart rate69 /min Kassie Richardson GLASS TINTER.WORKFORCE CONSULTANT Work Phone: [facility]09-11-2023 15:12-0400Systolic blood rbxdhiuj178 mm[Hg]Kassie Richardson GLASS TINTER.WORKFORCE CONSULTANT Work Phone: [facility]08-10-2023 13:43-0400Body gyeumf096.12 cmWarrennnifer Liliya Fatuma Work Phone: 1(302) [phone]-Mbnbup [facility] 201 DO Work Phone: 1(810) 987-959408-10-2023 13:43-0400Body mass index (BMI) [Ratio] 29.24 kg/v1Jsqbjshc R Fatuma Work Phone: 1(458) [phone]-Dqjwdd [facility] 201 DO Work Phone: 1(661) 194-258008-10-2023 13:43-0400Body surface area Derived from formula2.49 q1Rvvkogmn R Fatuma Work Phone: mp676-4944ZI-Utlazv [facility] 201 DO Work Phone: 1(381) 771-148608-10-2023 13:43-0400Body .76 kgWarrenbranifer R Fatuma Work Phone: mp194-6693OC-Qkqafb [facility] 201 DO Work Phone: 1(556) 446-254907-24-2023 14:23-0400Body nobcuy641.12 cmJennifer R Fatuma Work Phone: 1(688) [phone]-Dnbpfj [facility] 201 DO Work Phone: 1(732) 349-790007-24-2023 14:23-0400Body mass index (BMI) [Ratio] 29.82 kg/y3Emfnfebg R Fatuma Work Phone: 1(816) [phone]-Qysrpv [facility] 201 DO Work Phone: 1(512) 255-929207-24-2023 14:23-0400Body surface area Derived from formula2.52 m4SggbpimrRadha Burris Work Phone: mp047-2588SG-Xfykdh [facility] 201 DO Work Phone: 1(187) 625-471407-24-2023 14:23-0400Body .03 kgRadha Burris Work Phone: mp744-3409IF-Yzawux [facility] 201 DO Work Phone: 1(772) 579-228707-24-2023 14:23-0400Diastolic blood iqarsnba44 mm[Hg] Radha Burris Work Phone: mp577-3505CL-Aeohcb [facility] 201 DO Work Phone: 1(522) 843-417907-24-2023 14:23-0400Heart rate77 /minRadha Burris Work Phone: mp670-7031RR-Igqprs [facility] 201 DO Work Phone: 1(753) 919-896907-24-2023 14:23-0400Systolic blood cvslobcy832 mm[Hg] Radha Burris Work Phone: mp004-6556UJ-Rrruvv [facility] 201 DO Work Phone: 1(926) 224-905506-29-2023 14:32-0400Diastolic blood mm[Hg] Infusion 3 Work Phone: [facility]06-29-2023 14:32-0400Heart rate68 /min Infusion 3 Work Phone: [facility]06-29-2023 14:32-0400Respiratory rate 14 /minInfusion 3 Work Phone: [facility]06-29-2023 14:32-0400Systolic blood yfjoorfl739 mm[Hg]Infusion 3 Work Phone: [facility]05-11-2023 07:01-0400Body gufket642.4 Hugh Diego MD Work Phone: [facility]05-11-2023 07:01-0400 Body mass index (BMI) [Ratio]33.41 kg/j5TptfckmBeth Diego MD Work Phone: [facility]05-11-2023 07:01-0400 Body anbqbx544.6 kgBeth Diego MD Work Phone: [facility]04-28-2023 10:33-0400 Body qsvvid235.12 cmRadha Burris Work Phone: 1(454) [phone]-Ghqtrnwdoysbre-[place] [facility] 302 Work Phone: 1(502) 357-839204-28-2023 10:33-0400Body mass index (BMI) [Ratio] 29.99 kg/c6GtmxlvjrRadha Burris Work Phone: 1(973) 618-3765671-5925WT-Ukekwlqpahvzmg-[place] [facility] 302 Work Phone: 1(203) 227-691504-28-2023 10:33-0400Body surface area Derived from formula2.52 v1HuhdqqyuRadha Burris Work Phone: 1(151) 267-8177410-6373NQ-Faboatyhvomrtj-[place] [facility] 302 Work Phone: 1(431) 855-592504-28-2023 10:33-0400Body mdqgiphoucp82.8 [degF] Radha Burris Work Phone: 1(167) 517-8077639-4265HX-Ojtogrxupqijpc-[place] [facility] 302 Work Phone: 1(274) 746-900904-28-2023 10:33-0400Body iqyoon260.71 kgRadha Burris Work Phone: 1(160) [phone]-Bprexfyrmtltrj-[place] [facility] 302 Work Phone: 1(817) 668-411204-28-2023 10:33-0400Diastolic blood mxveofku14 mm[Hg] Radha Burris Work Phone: 1(733) [phone]-Lsglrqxvwtccng-[place] [facility] 302 Work Phone: 1(592) 516-163704-28-2023 10:33-0400Heart rate82 /minRadha Burris Work Phone: mg968-6687VF-Yzvmpntfyqhfns-[place] [facility] 302 Work Phone: 1(364) 230-937204-28-2023 10:33-0400Respiratory rate16 /minRadha Burris Work Phone: mg939-2215SY-Tothvjnjuxwkoe-[place] [facility] 302 Work Phone: 1(370) 418-279804-28-2023 10:33-3125SsK3% (BldA) [Mass fraction]98 % Radha Burris Work Phone: mg636-5678LX-Knnkrsukajrvqe-[place] [facility] 302 Work Phone: 1(968) 473-393004-28-2023 10:33-0400Systolic blood yzrgbhra372 mm[Hg] Radha Burris Work Phone: mg958-2021FT-Lorakcdrsdhyjy-[place] [facility] 788 Work Phone: 1(793) 586-959804-06-2023 14:25-0400Diastolic blood mm[Hg] Infusion 3 Work Phone: [facility]04-06-2023 14:25-0400Heart rate88 /min Infusion 3 Work Phone: [facility]04-06-2023 14:25-0400Systolic blood vnmilstf285 mm[Hg]Infusion 3 Work Phone: [facility]03-28-2023 08:57-0400Body qihjaw593.12 cmRadha Burris Work Phone: 1(857) [phone]-DslhrgcttgzmksAltru [facility] 4101 Work Phone: 1(654) 805-349703-28-2023 08:57-0400Body mass index (BMI) [Ratio] 29.08 kg/a7AdljlrjuRadha Burris Work Phone: 1(680) [phone]-VffqndykavljtjAltru [facility] System Hospital 4100 Work Phone: 1(401) 377-333203-28-2023 08:57-0400Body surface area Derived from formula2.49 h6LlqclrtuRadha Burris Work Phone: 1(971) [phone]-AnyownjxrbrefvAltru Health System Hospital 1490 Work Phone: 1(123) 123-759103-28-2023 08:57-0400Body zobjiwfjjmd02.8 [degF] Radha Burris Work Phone: 1(798) [phone]-SempvwlhaxggtvCho[facility] 2372 Work Phone: 1(289) 890-978803-28-2023 08:57-0400Body adjzxh733.13 kgRadha Burris Work Phone: 1(853) [phone]-FthgidaeshvqniAltru Health System Hospital 3931 Work Phone: 1(833) 767-390609-16-2022 14:08-0400Respiratory rate16 /minMaxgabriel Saul MD Work Phone: [facility]-16-2022 09:00-0400Diastolic blood jvtexuaz08 mm[Hg]John Saul MD Work Phone: [facility]09-16-2022 09:00-0400Heart rate63 /minMaxgabriel Saul MD Work Phone: [facility]09-16-2022 09:00-0400Systolic blood zzonfpve170 mm[Hg]John Saul MD Work Phone: [facility]-16-2022 07:45-0400Body fsdwmazaolb60.9 [degF]John Saul MD Work Phone: [place] [address]-16-2022 07:45-3268YlO7% (BldA) [Mass fraction]98 %John Saul MD Work Phone: [place] [address]-14-2022 06:00-0400Body mass index (BMI) [Ratio]29.47 kg/x0Ysvptgabriel Saul MD Work Phone: [place] [address]-14-2022 06:00-0400Body lbfinv421.67 kgMaxim Dorys VAZQUEZ Work Phone: bon [facility] LikezTAJCXJ98-64-5437 23:43-0400Body woxzbg520.1 cmMaxim Dorys VAZQUEZ Work Phone: bon [facility] LikezPSGCHN34-51-8501 16:00-0400Body heightSrubi Fox Other [employer] Other 06-13-2022 16:00-0400Body mass index (BMI) [Ratio] 30.71 kg/c8Rkoitjkeon Fox Other [facility] Other 06-13-2022 16:00-0400Body bfnyue603.48 kgShkeon Fox Other [facility] Hospital[facility] Other 06-13-2022 16:00-0400Diastolic blood mwnlxakn30 mm[Hg] Thor Fox Other [employer] Other 06-13-2022 16:00-1631EvU1% (BldA) [Mass fraction]97 % Thor Fox Other [facility] Hospital[facility] Other 06-13-2022 16:00-0400Systolic blood hpxgxrno682 mm[Hg] Thor Fox Other [employer] Other 05-11-2022 10:15-0400Body Richard Estrada Other [employer] Other 05-11-2022 10:15-0400Body mass index (BMI) [Ratio] 30.76 kg/j2RcszsLashawn Estrada Other [facility] Other 05-11-2022 10:15-0400Body .66 kgPeggy Estrada Other [facility] Other 05-11-2022 10:15-0400Diastolic blood kyclyjbf07 mm[Hg] Lashawn Estrada Other [facility] Other 05-11-2022 10:15-0400Respiratory rate18 /minPeggy Estrada Other [facility] Other 05-11-2022 10:15-4923AqM9% (BldA) [Mass fraction]96 % Lashawn Estrada Other [facility] Other 05-11-2022 10:15-0400Systolic blood ygofnohj006 mm[Hg] Lashawn Estrada Other [facility] Other 04-14-2022 16:45-0400Body heightSshu Ruddy Other [facility] Other 04-14-2022 16:45-0400Body mass index (BMI) [Ratio] 30.73 kg/q9ZkduciThor Fox Other [facility] Other 04-14-2022 16:45-0400Body ttnguy678.57 kgShrajisophia Ruddy Other [facility] Other 04-14-2022 16:45-0400Diastolic blood outizfcg68 mm[Hg] Thor Ruddy Other [facility] Other 04-14-2022 16:45-4704NsU3% (BldA) [Mass fraction]98 % Thor Fox Other [facility] Other [id number] 16:45-0400Systolic blood cspocoig405 mm[Hg] Thor Fox Other [facility] Other 476456-65-8209 13:30-0500Body Jkucekqnrms70.1 [degF][address], IB86-10-1139 13:30-0500BP Ukxcubglq09 mm[Hg][address], QD63-79-8251 13:30-0500BP Madugjea139 mm[Hg][address], WO63-30-1513 13:30-0500Pulse (Heart Rate)69 /min[address], [place] 03-11-2020 13:30-0500Respiratory Rate18 /min[address], GX97-67-7942 09:45-0500Pulse Hrvmeisz09 %[address], GL24-59-0095 13:16-0500BMI (Body Mass Index)28 kg/q7TxkxplLuc[facility] 201 Work Phone: 1(398) 113-143411-12-2019 13:16-0500Body ahhgdm497.88 [facility] 201 Work Phone: 1(571) 735-716311-12-2019 13:16-0500BP Oviviulco32 mm[Hg][facility] 201 Work Phone: comment on above:Location: LUE; Position: Sitting 03-03-2019 13:16-0500BP Nfxnimas193 mm[Hg][facility] 201 Work Phone: comaelw on above:Location: LUE; Position: Sitting 03-03-2019 13:16-0500BSA (Body Surface Area)2.45 r4EruwknMendota Mental Health Institute 201 Work Phone: 1(535) 871-168211-12-2019 13:166061Cpztsm546.12 cmSjulián Luong TD-Rhafkmvco-Rbxksffps 201 Work Phone: 1(295) 829-454611-12-2019 13:16-0500Pulse (Heart Rate)81 /minSjulián LuongAylvpbQK-Relyiqebx-Ojjhcxukx 201 Work Phone: 1(770) 549-837011-12-2019 13:160500Pulse Qgnjursl18 %Chris Luong HP-Yjmobxfpx-Zraemamzu 201 Work Phone: comment on above:Source: RA Encounters Encounter DateEncounter [facility] ProviderFacilityStart: 02-20-2025 End: 22-44-5121Ebrdnf encounterRadha Burris MD Work Phone: [facility]Start: 02-11-2025 End: 83-57-7735lcnkesnsrrYRCOIYYHV M FOXFacility:[facility] Centertart: 32-26-0372wspyrbibbeKKNNMercy Health Clermont Hospitaltart: 01-29-2025 End: 03-00-2351Lpuvnpb encounter Ana Armstrong MD-[facility] Work Phone: Start: 01-29-2025 End: 51-94-2434cdyryvdaeySabbvfxiLaura Burris MD Work Phone: [facility] Work Phone: Start: 01-19-2025 End: 13-63-5745ivssuvhukmOXZHLVO [facility]art: 01-14-2025 End: 44-03-3408Knlvxkvinod Burris MD Work Phone: NO [facility]Start: 01-14-2025 End: 59-86-5026Gjbyehruddy Burris MD Work Phone: [facility] MedicineStart: 01-14-2025 End: 66-28-2885Mogeyt outpatient visit 15 minutesJennifer Fatuma MD Work Phone: noMS [facility] MedicineComment on above:Dizziness (Primary Dx); Pain in both lower extremities; Acquired hypothyroidismStart: 01-14-2025 End: 32-52-2602hovvgtuicnNVWHACJI HOHMANNot AvailableStart: 01-07-2025 End: 98-70-8098uopuutfbjwZRAGFZIZJ M FOXFacility:[facility] Centertart: 12-31-2024 End: 19-90-7958wtlmbracmdBUNXVProtestant Deaconess Hospitaltart: 12-29-2024 End: 98-54-4911OphwtyAynzf Kampfer VOLTAGE REGULATOR ASSEMBLER Work Phone: noMS [facility] MedicineComment on above:Acquired hypothyroidismStart: 12-25-2024 End: 51-35-3289Hdvdzf flowsGhassan Adams VOLTAGE REGULATOR ASSEMBLER Work Phone: noMS [facility] MedicineStart: 12-25-2024 End: 04-16-8754Zswanz flowsheetStoo Adams VOLTAGE REGULATOR ASSEMBLER Work Phone: [facility] MedicineStart: 12-25-2024 End: 52-26-5287Ivkypa outpatient visit 25 minutesShivani Adams VOLTAGE REGULATOR ASSEMBLER Work Phone: noMS [facility] MedicineComment on above:Muscle cramps (Primary Dx); Acquired hypothyroidism ; Hypocalcemia; Stage 3b chronic kidney disease ([facility])Start: 12-25-2024 End: 49-52-5255bxirctidcvBBNGA KAMPFERNot AvailableStart: 12-15-2024 End: 98-70-7166Tasieexpz Result EncounterGeneric External Data ProviderNOMS External Department UnsolicitedStart: 12-15-2024 End: 80-47-1951Ciybqnwhp Result EncounterGeneric External Data ProviderNOMS External Department UnsolicitedStart: 12-15-2024 End: 82-24-5302Ismbrcrui encounterAbby Bernstein [employer].WORKFORCE CONSULTANT Work Phone: NeurologyComment on above:Received Outside Medical RecordsStart: 12-15-2024 End: 44-81-0120pduyviszexDWRXEKHEC M FOXFacility:[facility] Centertart: 12-14-2024 End: 87-23-4145ckucvarqxiSsdyttnhoJanae Bernstein APRN.CNP Work Phone: NeurologyComment on above:Test resultsStart: 12-11-2024 End: 04-81-8378J-mail encounter from caregiverAbby Bernstein APRN.CNP Work Phone: NeurologyStart: 12-11-2024 End: 41-55-4205Lgbdeh-up encounterAbby Bernstein APRN.CNP Work Phone: NeurologyComment on above:Follow upStart: 11-12-2024 ambulatoryBLKINDRED HOSPITALUBBUEast Liverpool City Hospitaltart: 11-10-2024 End: 74-44-0511Ssvgtya encounter procedureAbby Bernstein APRN.CNP Work Phone: NeurologyComment on above:Orthostatic lightheadedness (Primary Dx); Ptosis of right eyelid; Hoarseness of voice; Disturbance of skin sensation; Abnormality of gait and mobility; Falls frequently; Orthostatic hypotension; Voice disturbanceStart: 11-10-2024 End: 17-64-7272djhvsijtekPUJJGVTNV M FOXFacility:[facility] Centertart: 10-29-2024 End: 27-08-3337Ytwysb flowsheetPaul S Biedenbach DO Work Phone: noms ENT NORWALKStart: 10-29-2024 End: 30-61-2502Fvxhjw flowsheetPaul S Biedenbach DO Work Phone: noms ENT NORWALKStart: 10-29-2024 End: 36-49-9567Ksadgx outpatient visit 15 minutesPaul S Biedenbach DO Work Phone: noms ENT NORWALKComment on above:Nasal septal deviation (Primary Dx); Chronic maxillary sinusitis; OAF (sonny-antral fistula)Start: 10-29-2024 End: 87-78-5328irdmwjwphiGDIS S BIEDENBACHNot AvailableStart: 10-15-2024 End: 13-01-8703Iyjlhk follow up visit related to original pxPaul S Biedenbach DO Work Phone: noms ENT Pan on above:Nasal septal deviation (Primary Dx); Chronic maxillary sinusitisStart: 10-15-2024 End: 07-04-0993kvmcuybsplYMJZ S BIEDENBACHNot AvailableStart: 10-15-2024 End: 89-97-8811Ehhmag flowsheetPaul S Biedenbach DO Work Phone: noms ENT USMANKStart: 10-15-2024 End: 91-65-2746Knekxb flowsheetPaul S Biedenbach DO Work Phone: noms ENT OPALtart: 10-07-2024 End: 03-14-9896Kxabzspkf to same day surgery centerPaul S Biedenbach [facility] Start: 10-07-2024 End: 24-12-9695yywwztngjxDacu S BiedenbachFacility:FTMCStart: 10-01-2024 [facility]tart: 09-25-2024 End: 80-35-8934bpxanxuobuXiad S BiedenbachFacility:FTMCStart: 09-25-2024 End: 37-31-4205Scdwuxb encounter procedurePaul S Biedenbach [facility] Start: 09-22-2024 End: 02-90-4450Bjfdsq outpatient visit 25 minutesPaul S Biedenbach DO Work Phone: noms ENT Pan on above:Nasal septal deviation (Primary Dx); Acute non-recurrent maxillary sinusitis; OAF (sonny-antral fistula)Start: 09-22-2024 End: 61-97-4613ezspcenetxEOWK S BIEDENBACHNot AvailableStart: 09-22-2024 End: 65-22-2906Dmcryd flowsheetPaul S Biedenbach DO Work Phone: noms ENT NORWALKStart: 09-22-2024 End: 23-60-8253Noimqj flowsheetPaul S Biedenbach DO Work Phone: noms ENT NORWALKStart: 09-08-2024 End: 86-26-5256Mmrnpo outpatient new 45 minutesPaul S Biedenbach DO Work Phone: noms ENT NORSURENDRAKComment on above:Nasal septal deviation (Primary Dx); Acute non-recurrent maxillary sinusitis; Abnormal CT scan, sinus; OAF (sonny-antral fistula)Start: 09-08-2024 End: 24-48-2638uwishsovzjJEVC S BIEDENBACHNot AvailableStart: 09-08-2024 End: 60-79-0916Qqqghq flowsheetPaul S Biedenbach DO Work Phone: noms ENT NORWALKStart: 09-08-2024 End: 61-42-8304Iqbisl flowsheetPaul S Biedenbach DO Work Phone: noms ENT NORSURENDRAKStart: 09-02-2024 End: 11-20-5031Vumbtw outpatient visit 15 minutesShivani Adams VOLTAGE REGULATOR ASSEMBLER Work Phone: NOMS FNR FMComment on above:Acute non-recurrent maxillary sinusitis (Primary Dx)Start: 09-02-2024 End: 66-14-9220dnqgxvkufyYBTZF KAMPFERNot AvailableStart: 09-02-2024 End: 42-31-9044Hddokx Dileep Adams VOLTAGE REGULATOR ASSEMBLER Work Phone: NOMS FNR FMStart: 09-02-2024 End: 30-26-7428Blegxo Dileep Adams VOLTAGE REGULATOR ASSEMBLER Work Phone: NOMS FNR FMStart: 09-02-2024 End: 49-27-6054Dmyadzgdm Result EncounterGeneric External Data ProviderNOMS External Department UnsolicitedStart: 57-66-2078tkzmmfhexdPPEEDoctors Hospitaltart: 08-21-2024 End: 27-60-6130Afwoqq outpatient visit 25 minutesRadha Burris MD Work Phone: NOJE FNR FMComment on above:Dental infection (Primary Dx)Start: 08-21-2024 End: 71-80-9040vwtcmdwbjoHVIOOTOI HOHMANNot AvailableStart: 08-21-2024 End: 49-73-2481Yiwqki Wes Burris MD Work Phone: NOON FNR FMStart: 08-21-2024 End: 85-97-8311Qdkmzbruddy Burris MD Work Phone: noms FNR FMStart: 08-19-2024 End: 03-20-7841Kttvlf flowsheetChristopher Silvana DO Work Phone: aNA BELLEVUEStart: 08-19-2024 End: 40-04-4381Vhaafh flowsheetChristopher Silvana DO Work Phone: aNA BELLEVUEStart: 08-19-2024 End: 03-37-0369Xwaauh outpatient visit 25 minutesChristopher Silvana DO Work Phone: aNA BELLEVUEComment on above:Cranial neuropathy (Primary Dx); WeaknessStart: 08-19-2024 End: 88-16-9999jadueiytkhRAHXDWHUDCX HASSETTNot AvailableStart: 08-17-2024 ambulatoryPremier Healthtart: 08-10-2024 End: 81-59-0726Egcejsvinod Redding MD Work Phone: NOYG ENDOCRINOLOGYStart: 08-10-2024 End: 84-86-2679Eihjktruddy Redding MD Work Phone: noms ENDOCRINOLOGYStart: 08-10-2024 End: 35-76-7942Msbjac outpatient visit 40 minutesLatoya Redding MD Work Phone: noms ENDOCRINOLOGYComment on above:Low serum parathyroid hormone (PTH) (Primary Dx); Hypocalcemia; Vitamin D deficiency; Postoperative hypothyroidism (CMS/HCC); Postsurgical hypoparathyroidism (CMS/HCC); Stage 3a chronic kidney disease (HCC) (CMS/HCC)Start: 08-10-2024 End: 48-04-5440reviapcfnbYIKZWBill Mccord AvailableStart: 08-03-2024 End: 71-86-6969Spzryypko Result EncounterGeneric External Data ProviderNOMS External Department UnsolicitedStart: 08-03-2024 End: 75-54-4020Qjzahcbey Result EncounterGeneric External Data ProviderNOMS External Department UnsolicitedStart: 07-14-2024 End: 83-38-0636yuzazlplotTMLDOPMTQUVWayne HealthCare Main Campus Start: 07-06-2024 End: 01-16-2476Kbyeei outpatient new 45 minutesLatoya Redding MD Work Phone: noms ENDOCRINOLOGYComment on above:Postsurgical hypoparathyroidism (CMS/HCC) (Primary Dx); Low serum parathyroid hormone (PTH); Hypocalcemia; Vitamin D deficiency; Postoperative hypothyroidism (CMS/HCC)Start: 07-06-2024 End: 62-36-2705djmhcxesvzFYYCU F SABBAGHNot AvailableStart: 07-02-2024 End: 24-52-5277Znhamwgnv Result EncounterGeneric External Data ProviderNOMS External Department UnsolicitedStart: 07-02-2024 End: 32-75-3405Vqckfirua Result EncounterGeneric External Data ProviderNOMS External Department UnsolicitedStart: 06-22-2024 End: 23-44-4531Mnewaa outpatient new 45 minutesChristopher [facility] Work Phone: ana BELLEVUEComment on above:Weakness (Primary Dx); Acquired ptosis of right eyelid; Cranial neuropathyStart: 06-22-2024 End: 43-86-9004znqjvgvpofBKOVSXYNNUK HASSETTNot AvailableStart: 06-10-2024 End: 36-95-1708QpkgjqMeredith Adams VOLTAGE REGULATOR ASSEMBLER Work Phone: NOYP FNR FMComment on above:Acquired hypothyroidism (CMS/HCC)Start: 06-09-2024 End: 68-43-8884Avhldl flowsheetPatricia A Ahmet VOLTAGE REGULATOR ASSEMBLER Work Phone: NOMS FNR FMStart: 06-09-2024 End: 17-48-8075Zwrynl flowsheetPatricia A Halleenradha VOLTAGE REGULATOR ASSEMBLER Work Phone: NOZY FNR FMStart: 06-09-2024 End: 95-47-4765Ulklcsy encounter procedurePaandria Leo VOLTAGE REGULATOR ASSEMBLER Work Phone: noms FNR FMComment on above:Restless legs syndrome (Primary Dx); POTS (postural orthostatic tachycardia syndrome); Aneurysm of ascending aorta without rupture (CMS/HCC); Arteriosclerosis of coronary artery (CMS/HCC); Paroxysmal atrial fibrillation (CMS/HCC); Coronary artery disease involving nondalton heart, unspecified vessel or lesion type, unspecified [...] (obstructive sleep apnea); Medicare annual wellness visit, subsequentStart: 06-09-2024 End: 39-93-4219jzayahfxmzPHVVLILR A AHMETNot AvailableStart: 06-04-2024 End: 29-91-6530Ivvbycrnz Result EncounterGeneric External Data ProviderNOMS External Department UnsolicitedStart: 06-04-2024 End: 12-06-9212Bvkqkpcbj Result EncounterGeneric External Data ProviderNOMS External Department UnsolicitedStart: 05-27-2024 End: 79-34-5254Xbrubisfd encounterSylvia Nancy MANOMS FNR FMStart: 05-19-2024 End: 77-87-9333Aomprv Lisa Burris MD Work Phone: NOMS FNR FMComment on above:Ptosis of both eyelids (Primary Dx)Start: 05-18-2024 End: 26-85-7817AxstivFnwdxvn A Vigil VOLTAGE REGULATOR ASSEMBLER Work Phone: noms FNR FMComment on above:Acquired hypothyroidism (CMS/HCC)Start: 05-12-2024 End: 84-51-5487Ualmmbtri Result EncounterGeneric External Data ProviderNOMS External Department UnsolicitedStart: 05-12-2024 End: 32-15-9619Nbosrqhgt Result EncounterGeneric External Data ProviderNOMS External Department UnsolicitedStart: 05-07-2024 End: 91-31-6390Dbxbeqasu Result EncounterGeneric External Data ProviderNOMS External Department UnsolicitedStart: 05-07-2024 End: 75-58-9257Iuaqpgyez Result EncounterGeneric External Data ProviderNOMS External Department UnsolicitedStart: 63-14-4498ezjyipufklAMQZPINParkview Healthtart: 04-23-2024 End: 60-99-8988Yaytau Lisa Burirs MD Work Phone: noms FNR FMComment on above:Restless leg (Primary Dx) Start: 18-29-8901Oawlyicska and management of inpatientBANNER OCOTILLO MEDICAL CENTERI TRI[facility] B[facility] NORTH HOSPITALDUniBrown Memorial Hospitaltart: 25-76-3566Cazfehslba and management of inpatientMercy Health Urbana Hospitaltart: 69-86-5665Kdpwsuozbb and management of inpatientROSWELL PARK COMPREHENSIVE CANCER CENTERAD [facility] Start: 55-40-6320Ljtcwsnfs department patient visitRAMIA FERRERAEEUpper Valley Medical Centertart: 51-11-3361Rrkuheocq department patient visitMARGO FELIZUpper Valley Medical Centertart: 04-08-2024 End: 07-81-4004Bdnnypqvls and management of inpatientOMAR [facility] Main Campustart: 04-08-2024 End: 11-23-1921cubkreutlyECVZNProtestant Deaconess Hospitaltart: 03-16-2024 End: 77-67-2584Iznhbciea Result EncounterGeneric External Data ProviderNOMS External Department UnsolicitedStart: 03-16-2024 End: 83-21-2066Apdaxkerd Result EncounterGeneric External Data ProviderNOMS External Department UnsolicitedStart: 03-11-2024 End: 09-07-7354kyegzktmnpYUZNZProtestant Deaconess Hospitaltart: 03-03-2024 End: 45-33-8380Xlajdodyg identifierDerek L Hahira Work Phone: jis RivertonStart: 40-24-8698bwtifqmhikXycen L Hahira [facility] OrthopedicsStart: 02-10-2024 End: 63-20-4001Aqnsboprz encounterRadha Burris MD Work Phone: NOMS FNR FMComment on above:Dermatitis (Primary Dx) Start: 02-06-2024 End: 37-01-9389Ifjyir flowsOsorio Burris MD Work Phone: NOMS FNR FMStart: 02-06-2024 End: 63-19-3922Rwylhb Wes Burris MD Work Phone: NOMS FNR FMStart: 02-06-2024 End: 89-62-2027Jmxfesvtzxnh care manage srvc 7 day dischargeRadha Burris MD Work Phone: NOMS FNR FMComment on above:Anxiety (Primary Dx); Dermatitis; Paroxysmal atrial fibrillation (CMS/HCC)Start: 02-06-2024 End: 82-41-5756RhlhgsUsmvxabs Amita Ahmet VOLTAGE REGULATOR ASSEMBLER Work Phone: NOPY FNR FMComment on above:Acquired hypothyroidism (CMS/HCC)Arteriosclerosis of coronary artery (CMS/HCC) (Primary Dx); Atypical angina (CMS/HCC)Start: 01-20-2024 End: 61-69-6989Fpxnvo outpatient visit 15 minutesChristy Amita Vigil VOLTAGE REGULATOR ASSEMBLER Work Phone: NOMS FNR FMComment on above:Irritant contact dermatitis due to other agents (Primary Dx)Start: 01-20-2024 End: 98-93-6938eljlyzqoorWSWMQHY Amita Tomas AvailableStart: 01-13-2024 End: 08-99-8323Vscitq Dileep Adams VOLTAGE REGULATOR ASSEMBLER Work Phone: noMS FNR FMStart: 01-13-2024 End: 08-48-4812Gjnpwr Dileep Adams VOLTAGE REGULATOR ASSEMBLER Work Phone: NOMS FNR FMStart: 01-13-2024 End: 22-85-5436Tmvcfp outpatient visit 15 minutesSapetra Adams VOLTAGE REGULATOR ASSEMBLER Work Phone: noms FNR FMComment on above:Dermatitis (Primary Dx); Chronic kidney disease, stage 3a (HCC) (CMS/HCC); Atherosclerosis of aorta (CMS/HCC); Thoracic aortic ectasia (CMS/HCC)Start: 01-06-2024 End: 59-10-0256Ikxwpttqs identifierDerek L Hahira Work Phone: jis [place]: 01-02-2024 End: 75-46-7552Tekwfg outpatient visit 25 minutesDerek L Hahira Work Phone: jis [facility]: 12-24-2023 End: 97-55-6329Okcobc Wes Burris MD Work Phone: noMS FNR FMStart: 12-24-2023 End: 74-16-1221Fxueyt Wes Ramiresan MD Work Phone: NONV FNR FMStart: 12-24-2023 End: 64-23-7062Qpuowc outpatient visit 15 minutesRadha Burris MD Work Phone: NODD FNR FMComment on above:Diarrhea, unspecified type (Primary Dx); Autonomic dysfunction; Angina at rest (CMS/HCC)Start: 41-36-8692Hjzawp encounterRadha Burris MD Work Phone: [facility]Start: 06-10-2023 End: 45-80-5498unxarpnqmiUE Radha Ashish Burris Work Phone: [facility] Work Phone: Start: 06-10-2023 End: 66-67-5704Knsaqkn encounter procedureMD Radha Burris Work Phone: [facility] [place] Work Phone: Start: 06-08-2023 End: 40-05-2771Qjczlmfxo Result EncounterGeneric External Data ProviderNOMS External Department UnsolicitedStart: 06-08-2023 End: 48-75-3288Psdhkcafn Result EncounterGeneric External Data ProviderNOMS External Department UnsolicitedStart: 06-07-2023 End: 92-94-8953Pxdfytwur Result EncounterGeneric External Data ProviderNOMS External Department UnsolicitedStart: 06-07-2023 End: 67-30-2390Cnmjgwaau Result EncounterGeneric External Data ProviderNOMS External Department UnsolicitedStart: 63-31-7664Dbcxwaujj Result Encounter Generic External Data ProviderNOMS External Department UnsolicitedStart: 72-16-5280Eyrewntmm Result EncounterGeneric External Data ProviderNOMS External Department UnsolicitedStart: 05-31-2023 End: 11-78-2738yprnsroshbTfbe Shannon APRN.CNP Work Phone: NeurologyComment on above:Orthostatic hypotension (Primary Dx); [place]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)Start: 05-31-2023 End: 70-88-0628Wjgttusjadjw consultation with Janeth Pearl APRN.CNP Work Phone: ccf [facility] MAINStart: 05-30-2023 End: 83-46-9705qqfibbexsmTcxf Asaad Other noTamago Other Start: 14-33-8744Tjzlolthg encounterImad AsaadFPG GastroenterologyStart: 20-32-5629Jhtvyk encounterRadha Bruris MD Work Phone: [facility]HealthStart: 05-20-2023 End: 24-49-0686iwyzanuwsuBbvo Asaad Other [employer] Other Start: 64-28-9841Ngudzabgj encounterImad AsaadFPG GastroenterologyStart: 04-26-2023 End: 90-63-0369xsanhpmsnvCaxt Asaad Other [employer] Other Start: 75-24-3475Yyaxupxfz encounterImad AsaadFPG GastroenterologyStart: 04-24-2023 End: 14-79-5463lgympnoifkKsnd Asaad Other OMsignal Other Start: 00-77-5105Kwlhyntyz encounterImad AsaadFPG GastroenterologyStart: 04-16-2023 End: 98-76-6461Vcouwrkvj to same day surgery centerMD Radha Burris Work Phone: [facility] Work Phone: Start: 04-16-2023 End: 91-38-2370kptequtdewLNMD Radha Burris Work Phone: [facility] Work Phone: Start: 04-09-2023 End: 54-98-1786lttatvwjwoPnzy Asaad Other [employer] Other Start: 83-87-6725Jaylkdcbd encounterImad AsaadFPG GastroenterologyStart: 04-01-2023 End: 22-71-8650vovldzlxdlNlvb Asaad Other [facility] Other Start: 33-93-4609Fdowxgxpo encounterImad AsaadFPG GastroenterologyStart: 03-21-2023 End: 38-82-2634Rtsrmx outpatient visit 15 minutesDonn Ashish Ceballos Work Phone: JIC [facility] CenteranyStart: 03-20-2023 End: 98-53-3852mpfedrxulfJfgv Asaad Other [facility] Other Start: 35-56-7964Rlhnpr outpatient new 45 minutesImad AsaadFPG GastroenterologyStart: 03-20-2023 End: 58-64-4804Fbjhxux encounter procedureMD Radha Burris Work Phone: [facility]-FPG Gastroenterology Work Phone: Start: 02-25-2023 End: 50-81-7245zwtegplxbhSyhh Biopsy Work Phone: NeurologyStart: 02-25-2023 End: 51-70-8190Unlenru encounter procedureSkin Biopsy Work Phone: c[facility] MAINStart: 36-11-1824Nffpchous encounterKyle Maria R AGGARWAL Work Phone: NeurologyComment on above:Results ([facility] ) Start: 02-01-2023 End: 76-95-3543hjrbbamsaaEIVUEUVLMercy Health Lorain Hospitaltart: 02-01-2023 End: 99-65-9933Uiyidfndue hospital visit by physicianEly Ct 2St. [facility] HospitalComment on above:Left lower quadrant abdominal painStart: 02-01-2023 End: 38-09-7917uqvgyqixwqXDGGHUIPomerene Hospital Start: 01-31-2023 End: 82-64-2233fmqamhzakiBRAZFZPBleckley [facility] Hospital AmbulatoryStart: 01-31-2023 End: 06-41-9422Oztiyr outpatient visit 25 minutesYossi Chen MD Work Phone: [facility] HospitalComment on above:Diarrhea, unspecified type (Primary Dx); Left lower quadrant abdominal painStart: 43-50-8547zdoybzadezMtliGoldie Pearl APRN.CNP Work Phone: NeurologyComment on above:TiltStart: 08-85-8609Y-mail encounter from Kimberly Pearl APRN.CNP Work Phone: c[facility] MAINStart: 91-22-9624Hiubgeqwf encounterMaría Pearl APRN.CNP Work Phone: NeurologyComment on above:Results ([facility] )Start: 59-01-2326myrslphoouSaglGoldie Pearl APRN.CNP Work Phone: NeurologyComment on above:Test resultsStart: 12-31-2022 End: 03-80-4537Rcznidu encounter procedureCatotis Richardson APRN.CNP Work Phone: NeurologyComment on above:Autonomic dysfunction (Primary Dx); Dizzy spellsStart: 93-78-6225Tprpxq follow up visit related to original px Radha Burris Work Phone: [phone]-Hnwoqd [facility] [address] DO Work Phone: Start: 99-34-5452wctnigutjmMwmbulatoryDr. Yossi Chen Facility:9307Start: 97-23-1366Ggyyr Guerda Burris Work Phone: [phone]-Cgbncq [facility] [address] DO Work Phone: Start: 61-99-6566Tvoanl follow up visit related to original Ana Maria Burris Work Phone: [phone]-Vjbluh [facility] [address] DO Work Phone: Start: 12-40-4930indamlcjpfFr. Yossi Chen Facility:9307Start: 11-22-2022 End: 90-65-4130Wnmsjfsfek and management of inpatientDr. Yossi Chen Facility:9507Start: 79-00-5917Puquauklr encounterCathy Satish Richardson GLASS TINTER.WORKFORCE CONSULTANT Work Phone: NeurologyComment on above:Received Outside Medical Records ()Start: 53-76-8997pknixhgbaoXh. Yossi ChenFacility:9307Start: 57-14-0897VFFZMGmwmlegb R Hohman Work Phone: [phone]-YbdngcypokpregPiedmont [facility]on North Hospital Work Phone: start: 65-35-3328frnumekdguBi. Arabelal ButtFacility:9498Start: 72-10-8214wyddeuqcscLboac Satish Richardson GLASS TINTER.WORKFORCE CONSULTANT Work Phone: NeurologyComment on above:ReactionStart: 10-18-2022 End: 72-28-6504mspphmczilOipwcmzl Main Chair 3 Work Phone: NeurologyComment on above:Chronic migraine without aura, with intractable migraine, so stated, with status migrainosus (Primary Dx) Start: 10-15-2022 End: 20-86-8910frbtfrfvjuBa. Arabella ButtFacility:9531Start: 10-15-2022 End: 11-19-7777Qbcgjmlasv hospital visit by Katelyn Butt MD Work Phone: [facility] SURG AIB LEGACYComment on above:Obstructive sleep apnea (adult) (pediatric); Sleep apnea, unspecified; Dysphagia, unspecified; [...] joint, bilateral; Personal history of nicotine dependence; long-term (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 of aspirin; Allergy status to penicillin; Allergy status to other antibiotic agentsStart: 78-35-3082dewyadzsbsKn. [facility] Medical Centercility:9531Start: 46-43-2144Zfkuwguaq for preprocedural cardiovascular examinationDr. [facility] Devang Rika [facility] Oconomowoctart: 83-47-6908MYNXEKddzhslr R Hohman Work Phone: [facility] Work Phone: Start: 48-48-8931Vm [facility] EverettRadha Burris Work Phone: [phone]-HprzdcfqglkjneSioux County Custer Health 4107 Work Phone: Start: 62-80-4425Ivicaq outpatient visit 25 minutes Radha Burris Work Phone: [phone]-MenwwsarhrzetvPiedmont Macon North Hospital Work Phone: start: 17-28-1546FSJAVYTTSE, Provider: Ruby Daily, Status: Pen, Time: 2:30 PMRadha Burris Work Phone: [phone]-Paipqoftm [facility] [address] Work Phone: Start: 27-34-8220yxxypfvgcnTm. Nina Wanning Zhao Facility:[facility]tart: 19-48-8157Zpwduc outpatient visit 10 minutesRadha Burris Work Phone: [phone]-Fvihhaxqy [facility] [address] Work Phone: Start: 97-27-4126vmsbigmviwJs. Ranjana AbdallanFacility:9448Start: 09-13-2022 End: 50-13-7170jifukdnqybJv. Ruby DailyFacility:[facility]ITALtart: 09-04-2022 Office outpatient visit 40 minutesRadha Burris Work Phone: [phone]-Clxcitejtrylqr-[place] Work Phone: start: 49-32-0529ggqopoomblDu. Ruby Daily Facility:[facility]tart: 08-30-2022 End: 75-97-1020fqmdhtghaoKc. Ruby DailyFacility:[facility]ITALtart: 08-30-2022 End: 02-63-9417Vtodjldzdy hospital visit by Jocelyn Diego MD Work Phone: [facility] AIB LEGACYComment on above:Dysphagia, oropharyngeal phase; Dysphagia, unspecified; Diaphragmatic hernia without obstruction or gangrene; Other diseases of stomach and duodenum; Polyp of stomach and duodenum; Gastro-esophageal reflux disease without esophagitis; Hypertensive chronic kidney disease with stage 1 through stage 4 chronic kidney disease, or unspecified chronic kidney disease; Chronic kidney disease, stage 3 unspecified (CMS/HCC); Chronic atrial fibrillation, unspecified (CMS/HCC); Obstructive sleep apnea (adult) (pediatric); 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, unspecified; long-term (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 of antithrombotics/antiplatelets; long-term (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 of aspirin; Personal history of transient ischemic attack (TIA), and cerebral infarction without residual deficits; Personal history of nicotine dependence; Allergy status to penicillinStart: 12-88-0724BYMWVQxfjwvyf R Hohman Work Phone: [phone]-Gydvjwybqransj-[place] Work Phone: start: 30-55-4931hsspbqeprdIp. Radha Burris Facility:AMCStart: 72-43-9492Jiyntzu tobacco non-user cad cap copd pv dmRadha Burris Work Phone: [phone]-Rljgqgnwbebqzp-[place] [address] Work Phone: Start: 45-16-6564yqkvlszncpMd. Arabella Devang Frasertammy ButtFacility:9498Start: 20-06-5539bwpjmsvdwqXy. Radha Burris Facility:33982Jqdhp: 41-51-5374Xqpjfhg encounter procedureRadha Burris Work Phone: [facility] [address] [place] Work Phone: Start: 17-75-7846xhwztpsburYs. Ruby Daily Facility:9531Start: 72-09-9635Cwffbi outpatient visit 40 minutesJevinay Burris Work Phone: [phone]-Obtmzezgjvissh-[place] Work Phone: start: 19-52-5821Dniqwfc encounter procedureRadha Burris Work Phone: [phone]-Gsvfctkqulfwtn-[place] Work Phone: start: 33-40-4288QHZJVKPDGY, Provider: Ruby Daily, Status: Pen, Time: 12:30 PMRadha Burris Work Phone: [facility]Si[facility] [address] [place] Work Phone: Start: 12-42-2308ldorswnaovKt. Ruby Daily Facility:9448Start: 12-37-7432pxassviortXc. Radha Trina BurrisFacility:[address] Start: 77-68-8968Culiakl encounter procedureRadha Burris Work Phone: [facility] [address] [place] Work Phone: Start: 23-39-9303xdvhshjrihEdlxu J Dobrowski APRN.WORKFORCE CONSULTANT Work Phone: NeurologyComment on above:After effectsStart: 07-26-2022 End: 98-62-2926atlmkdwkdiHjmgiiyb Main Chair 3 Work Phone: NeurologyComment on above:Chronic migraine without aura, with intractable migraine, so stated, with status migrainosus (Primary Dx) Start: 38-59-1413aihiquuqpvVdzqxKassie Richardson APRN.CNP Work Phone: NeurologyComment on above:What's next?Start: 94-35-6253lycfgdfffjXoAmarjit Godinezerine LiannenFacility:9507Start: 07-17-2022 Office outpatient visit 25 minutesRadha Burris Work Phone: [phone]-LevnmsyiisaimhPiedmont [facility]on [facility] Hospital Voice Work Phone: Start: 59-13-1848Htrvbew encounter procedureRadha Burris Work Phone: [phone]-PqbgrosfhdtljhSioux County [facility]uster Health [address] Work Phone: Start: 50-60-8444zewaygubdnEjDr. Ranjana Schulzacility:9448Start: 16-94-8966tsbjblckzyBebokDavid Richardson APRN.CNP Work Phone: NeurologyComment on above:Test resultsStart: 06-04-2022 End: 44-19-4724prufqemkwiBC KIM Lilly BRYNNFacility:W4Uvmyz: 94-83-6969xozcielfsxviola Richardson APRN.CNP Work Phone: NeurologyComment on above:Today's visitStart: 40-91-0777B-mail encounter from caregiverKassie Richardson APRN.CNP Work Phone: [facility] MAINStart: 05-31-2022 End: 27-98-3747Aelwhcd encounter procedureKassie Richardson APRN.CNP Work Phone: NeurologyComment on above:Chronic migraine without aura, intractable, without status migrainosus (Primary Dx); Aphasia; Other specified transient cerebral ischemiasStart: 27-94-3435Pgdrsc solomon Burris MD Work Phone: [facility]HealthStart: 03-22-2022 End: 95-83-3893ilnhqrzlchINOLVHJ TUCKERFacility:Y8Bmvoy: 02-05-2022 End: 28-86-1036yewwsyjlrxPB [facility]ITALacility:S8Hrfen: 01-09-2022 End: 82-29-8939ykkhtbbyuiPR LEXI G SAMANTHAFacility:Z9Ssgtk: 01-01-2022 End: 33-76-2963Jczombafol and management of inpatientVERO Levi [facility] Hospitaltart: 12-31-2021 End: 84-10-6794Cpuzpnqihr and management of inpatientJohn Saul MD Work Phone: stvz Renal//Med SurgComment on above:Acute pancreatitis, unspecified complication status, unspecified pancreatitis type (Primary Dx); Gall stone pancreatitis; EMELIA (acute kidney injury) (HCC)Start: 12-31-2021 End: 80-41-8484cgrblfgkxiTI RADHA BURRISFacility:O3Dfnte: 12-30-2021 End: 03-07-4855ygrjbkltypGY MAYELIN RODRIGUEZFacility:S1Cckhc: 12-29-2021 End: 17-86-3828prdgmznsdtAV VERONICA YOUNGFacility:F1Pqfwa: 12-12-2021 End: 00-86-3166Ghybsqxuye and management of inpatientRADHA RAMIRESAN Facility:[facility]MCStart: 12-08-2021 End: 41-87-5258exvjnvzclaXGYUHDA TUCKERFacility:L6Dkyia: 10-95-1635Qenpbaeud for preprocedural laboratory examinationDR [facility] Start: 11-21-2021 End: 90-12-8213paaptmirtkMFRHSELK HOHMANFacility:UTMCStart: 11-17-2021 End: 41-57-2075wugooqjipeEC [facility]acility:G6Obfjv: 11-17-2021 End: 70-96-0956Vjgpgbeqs for preprocedural laboratory examinationDR MONO SIMSRODDYELFacility:S8Zthpy: 11-16-2021 End: 95-18-5603hdztzotnkqPN RADHA BURRISFacility:W9Xtaza: 11-09-2021 End: 93-78-5761ouizlmurhdXIQRRUON HOHMFLAKOFacility:UTMCStart: 10-03-2021 End: 87-63-2526yahxatfpbwWX Donnell AntoineerFacility:L2Vpccu: 10-03-2021 End: 96-10-8712ndqybcbsjzRVEHOLB MEJIAERFacility:E4Wjzar: 10-02-2021 End: 40-49-0580fxnlgtekcwFiedbp Ruddy Other noTamago Other Start: 27-40-6951Depmhp outpatient visit 15 minutes Thor ZakyFPG Pain ManagementStart: 09-27-2021 End: 53-55-5579gtrrkkssjwDBJJDYP TUCKERFacility:P7Zhqqe: 08-30-2021 End: 52-50-8989nqbhsddjyvUytds Estrada Other [employer] [facility] Other Start: 55-67-4021Mxqfbc outpatient visit 15 minutes Lashawn HartFPG Pain ManagementStart: 08-15-2021(Procedure) [facility]leyKn[facility] County Hospitalsophia FoxBanner Ocotillo [facility] Centerlilly [facility] CenterStart: 08-15-2021 End: 91-69-9722hdrtfubetwBahzew Ruddy Other noTamago Other Start: 08-03-2021 End: 38-99-2019kvomadkylyVmelvr Ruddy Other OMsignal Other Start: 40-55-9825Ezwvce outpatient visit 25 minutes Thor ZakyFPG Pain ManagementStart: 07-27-2021(Procedure) A[facility] CenterStart: 07-27-2021 End: 99-21-6133dwoiuucncwEtprhm Zaky Other [facility] Other Start: 07-18-2021(Procedure) Aston FoxBanner Ocotillo Medical Centerlilly [facility] CenterStart: 07-18-2021 End: 42-79-2941egpqmekslySrotok Zaky Other [facility] Other Start: 07-03-2021 End: 50-56-4825Nnuhvd outpatient visit 15 minutesDerek L Hahira Work Phone: jis RivertonStart: 06-21-2021 End: 34-01-7411Olwnsl outpatient new 30 minutesDerek L Hahira Work Phone: jis [facility] Islandart: 05-01-2021 End: 03-77-4401Mqfuzvzjtz hospital visit by physicianCos[facility] Stro (I-Stat) Work Phone: RadiologyComment on above:Shortness of breath [R06.02] Start: 03-11-2020 End: 92-99-0779Phexrki encounter procedureJEVINAY RASMUSSENUNIVERSITY HOSPITALS CLEVELAND MEDICAL CENTEREllen [facility] Centertart: 03-11-2020 End: 00-65-9066Jcwxkfrruo hospital visit by physicianColumb[facility] Infusion Bed 3MALZ OP INFUSIONComment on above:ArrivedStart: 02-10-2020 End: 98-85-1795yirnvoeorcJNBVIHQ PROVIDERFacility:METROHealthStart: 10-20-2019 Patient encounter procedureNelsvicky MujqmvZP-Jafivfrqlgwsgi-Fomsjjh [facility] 4[address] Work Phone: Start: 57-30-0253Jspmmdd encounter procedureNelsvicky HerZxlvqiTZ-Mzdxqyvtabukft-QicqetwAltru Health System Hospital 4100 Work Phone: Start: 46-07-8391Dldpkml encounter procedureNelsvicky QkvwilBX-Wamrechqtlirqf-TkmxmagAltru Health System Hospital 4100 Work Phone: Start: 24-70-6196Wchvivz encounter procedureNelson IlefufIS-Wnpwlbodcodijv-Mmadmsn [facility] 4100 Work Phone: Start: 16-00-6298Lkzajeb encounter procedureNelsvicky HerRegency Hospital [facility] 3315 Work Phone: Start: 57-86-8617Cubdsbz encounter procedureNelson [facility] 3315 Work Phone: Start: 21-43-6501Rqznmtf encounter procedureNelson [facility] 3315 Work Phone: Start: 39-34-8739Ocaddic encounter procedureNelsvicky [facility] 3315 Work Phone: Start: 69-56-9514Zxoljtp encounter procedureMIKHELIO BRITTAUSFacility:1532 Procedures DateProcedureProcedure DetailPerforming ClinicianStart: 86-71-8263GV brain spect Heike Burris MD Work Phone: Start: 74-94-9272BRZ ACETYLCHOLINE REC BINDING AB Generic External Data ProviderStart: 23-08-2349Npvvetjdst biopsy of nasal sinus Lalito Kellypanchitogalo start: 20-16-7403YN ECHO DOPPLER COMPLETEGeneric External Data ProviderStart: 05-57-3314ANYFydzyqu External Data ProviderStart: 30-01-9695AFUGicchmy External Data ProviderStart: 20-17-6388UPQRqstebu External Data ProviderStart: 55-49-8539ZAGJgivsai External Data ProviderStart: 05-07-2024 ITPGeneric External Data ProviderStart: 45-07-6231Qsgfvs-up visitFollow-upBLAIR GRUBBStart: 92-96-0989XamkzbrvkxbUoqcesoi Hohman MD Work Phone: Start: 03-16-2024. DIFFICILE PCRGeneric External Data ProviderStart: 01-02-2024 End: 38-37-1818Qbxag spine cervical 4 or 5 viewsDerek Hahira MDStart: 06-10-2023 Computed tomography of abdomen and pelvis with contrastMD Radha Burris Work Phone: Start: 42-75-4186EM ECHO DOPPLER COMPLETEGeneric External Data ProviderStart: 02-83-8355KQ ARASELI PERF SPECT REST STRGeneric External Data ProviderStart: 43-54-8670COI KAPPA/LAMBDA FREE SERUMGeneric External Data ProviderStart: 04-16-2023 End: 45-37-7600QvvxefgpxjnAO Radha Burris Work Phone: Start: 03-21-2023 End: 05-51-0301Gnqtf spine cervical 4 or 5 viewsDerek Hahira MDStart: 02-01-2023 CT ABDOMEN PELVIS W IV CONTRASTYOSSI THEODOREtart: 51-99-9765RPLWR PATHOGEN PANEL, PCRJENNIFER HOHMANStart: 40-65-2216Kc abdomen & pelvis w/contrast materialYossi Chen MD Work Phone: Start: 82-39-5472Ihtwn metabolic 2000 panel - Serum or PlasmaJENNIFER HOANStart: 90-10-4808BAZMJXMS PATHOLOGY RESULTSBeth Diego MD Work Phone: Start: 53-55-6859Phdtxabwvqwfq flexible transoral diagnosticJennifer Trina Burris MD Work Phone: start: 63-15-7834Txzbe metabolic panel calcium total Dariela Walker MD Work Phone: Start: 34-11-8641Rucfv count complete auto&auto difrntl wbcSgrant Walker MD Work Phone: Start: 95-56-6730ANWTN METABOLIC PANEL W/ REFLEX TO MG FOR LOW KBrshan Campos MD Work Phone: Start: 56-43-3733YJYKZCS, SEPSISJames T Villalpando DO Work Phone: Start: 04-06-8723Murei of urine sodiumElio Campos MD Work Phone: Start: 56-47-2561DCIRZRGBBLJ, URINEElio Campos MD Work Phone: Start: 65-59-0772Oipcjuuwyj microscopic onlyElio Campos MD Work Phone: Start: 95-69-0409Bnwkz dip stick/tablet rgnt auto w/o microscopyElio Campos MD Work Phone: Start: 78-93-9503Kwwes of nephelometry each analyte nesElio Campos MD Work Phone: Start: 60-12-2806Wfubdydzbs antigen each component Elio Campos MD Work Phone: Start: 64-73-8021EAWYYVZTMCFBFM SERUM PROFILEElio Campos MD Work Phone: Start: 01-65-4886TASKOBC, SEPSISJames T Villalpando DO Work Phone: Start: 56-16-9539Vfwhx of lipaseJames T Villalpando DO Work Phone: Start: 09-22-2354GDXXT METABOLIC PANEL W/ REFLEX TO MG FOR LOW KJames T Villalpando DO Work Phone: Start: 31-48-3879Cdvltcs function panelJames T Villalpando DO Work Phone: Start: 50-04-5492ZFSISBB, SEPSISJames T Villalpando DO Work Phone: Start: 62-41-3615HKJWUYW, SEPSISJames T Villalpando DO Work Phone: Start: 86-46-8776EYDWO METABOLIC PANEL W/ REFLEX TO MG FOR LOW Minda Campos MD Work Phone: Start: 01-09-1572FLQIXGP, SEPSISJames T Villalpando DO Work Phone: Start: 73-48-2363NLYEUQSZ PATHOLOGY REPORTAmer Romero Matos MD Work Phone: Start: 01-02-2022 End: 42-47-1768Mgxd surg cholecystectomy w/cholangiographyAmer Antonino Matos MD Work Phone: Start: 93-17-3382Lb retroperitoneal real time w/image limitedDariela Walker MD Work Phone: Start: 24-87-7028Gbfgy of lipaseJames T Villalpando DO Work Phone: Start: 47-50-8912EOIUF METABOLIC PANEL W/ REFLEX TO MG FOR LOW KJames T Villalpando DO Work Phone: Start: 56-43-2484Hwwfrrm function panelJames T Villalpando DO Work Phone: Start: 76-45-4845ETZEJIR, SEPSISJames T Villalpando DO Work Phone: Start: 18-48-1326EOUAKIC, SEPSISJames T Villalpando DO Work Phone: Start: 05-95-7182HICBHBX, SEPSISJames T Villalpando DO Work Phone: Start: 26-39-0079Mswwa of troponin quantitativeNohelia Morris [employer] - WORKFORCE CONSULTANT Work Phone: Start: 53-38-5919PBSESOH, SEPSISJames T Villalpando DO Work Phone: Start: 97-98-7320Bvv abdomen w/o contrast material Jewel A Liliana [employer] - WORKFORCE CONSULTANT Work Phone: Start: 69-58-2792Ajlzx of troponin quantitativeNohelia Morris [employer] - WORKFORCE CONSULTANT Work Phone: Start: 23-48-3431Lwuwh count complete automatedMaxim Dorys VAZQUEZ Work Phone: Start: 26-33-0181LIQRSEGGPXXMJukhr Zlatopolsky MD Work Phone: Start: 67-24-9725Uzhoqfyjot glycosylated c2tGpfya Dorys VAZQUEZ Work Phone: Start: 88-24-8019DEMTBWS, SEPSISMaxgabriel Saul MD Work Phone: Start: 98-75-0804Pazoyff bacterial quanttative colony count urineMaxim Dorys VAZQUEZ Work Phone: Start: 37-67-9707Dbvymks total xcpt refractometry urineDarline Walden MD Work Phone: Start: 99-73-5833Jvzxj dip stick/tablet rgnt auto w/o microscopyVerpeg Walden MD Work Phone: Start: 40-73-6021Gtloy metabolic panel calcium total Darlineanne marie Walden MD Work Phone: Start: 14-45-4182Fuscc panelDarline Walden MD Work Phone: Start: 61-86-1703Ajyqu 1996 panel - Serum or Plasma María Pearl [employer].WORKFORCE CONSULTANT Work Phone: Start: 44-30-0078Bangy of troponin quantitativeJanice Christina Calfee [employer] - WORKFORCE CONSULTANT Work Phone: Start: 79-72-3437Ivysf of troponin quantitativeJanice Christina Calfee [employer] - WORKFORCE CONSULTANT Work Phone: Start: 94-22-6473WYJIFHB, SEPSISJames Jacy Villalpando DO Work Phone: Start: 42-34-0291Thfucoe bacterial blood aerobic w/id isolatesJanice Christina Calfee [employer] - WORKFORCE CONSULTANT Work Phone: Start: 64-90-9010IEOYMQX, BLOOD 1Janice Christina Calfee [employer] - WORKFORCE CONSULTANT Work Phone: Start: 69-20-4505Awzeplvn screenRADHA CORDOVAomment on above:Performed By: #### [id number] #### [facility] [address] [place] [address], USAStart: 06-21-2021 End: 12-65-8530Lroov spine cervical 4 or 5 viewsDerek Hahira MDStart: 05-01-2021 Ct thorax w/o contrast Wilton Miller MD Work Phone: Start: 91-45-6351Mtpgxlxpbw test result abnormal Abnormal laboratory test resultGeneric ProviderStart: 83-99-2896ND Mod Barium Swallow with Speech EvalNelson HowardStart: 63-51-9965DXW Brain without Contrast Chris ParikhAdenoid excisionSanjay ParikhAppendectomySanjay ParikhAppendectomy Lalito Miller arthroplasty of kneePaul Biedengalo arthroplasty of kneePaul Biedengalo comment on above:Right/LeftAtrial appendage closure device insertionRadha Burris Work Phone: Back structure, excluding neck (body structure)Lalito Miller cataract extraction and insertion of intraocular lens Lalito Miller catheter ablation of arrhythmogenic focusRadha Burris Work Phone: Cervical arthrodesisSantikiy ParikhCholecystectomyLalito Miller colonoscopyRadha Burris Work Phone: ColonoscopyLalito Miller destructive procedurePagurvinder Miller esophageal hiatus hernia repairRadha Burris Work Phone: EsophagogastroduodenoscopyJevinay Burris Work Phone: Fusion of joint of cervical spine with internal fixation by anterior approachPagurvinder Dayton History of operative procedure on kneeSherif Ruddy Other History of thyroidectomySherif Ruddy Other History of thyroidectomyStatus post total thyroidectomyMD Radha Burris Work Phone: Comment on above:Patient was given postoperative instructions, I will see him in 1 week in the office.Implantation of cardiac pacemakerPagurvinder Dayton Implantation of insertable loop recorderJennifer R Fatuma Work Phone: LaminectomyJennifer R Fatuma Work Phone: Laparoscopic cholecystectomyJennifer R Fatuma Work Phone: Operative procedure on kneeSanjay ParikhOperative procedure on uterus AND/OR cervixWarrennnifer R Fatuma Work Phone: Retinal detachment of left eyePaul Dayton ThyroidectomyPagurvinder Dayton TonsillectomyJennifer R Fatuma Work Phone: TonsillectomyBlanchegurvinder Miller Total thyroidectomyJennifer R Fatuma Work Phone: 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)Lalito Gonzalezgalo comment on above:2022 Plan of Treatment DateCare ActivityDetailAuthorStart: 50-63-3467Hiscyukhb for malignant neoplasm of colonNOMS HealthcareStart: 15-91-5643Hbjnqzvfh for malignant neoplasm of colonNOMS HealthcareStart: 05-19-1781VEB Vaccine (1 - 1-dose 75+ series)RSV Vaccine (1 - 1-dose 75+ series)[facility]: 61-85-9869UWQ vaccine (adult) (1 - 1-dose 75+ series)RSV vaccine (adult) (1 - 1-dose 75+ series) [facility]HealthStart: 28-35-0382Ohrgjesh ScreeningDiabetes ScreeningMercy Health Defiance Hospital Start: 31-68-8782Uqpfj panelBON JOSE ELIAS MARYMOUNT HOSPITALStart: 15-56-2775Gtggtqaq ScreeningDiabetes ScreeningParkwood Hospitaltart: 33-81-4674Vasdvraw Screening Diabetes ScreeningParkwood Hospitaltart: 38-00-9278OWGUCSGR SCREENDIABETES SCREENParkwood Hospitaltart: 10-94-8526Noijplsw ScreeningDiabetes Screening [facility] Hospitaltart: 06-31-6356Fzdnrkrop vaccinationInfluenza Vaccine (#1)[facility]S HealthcareComment on above:Postponed from 12/21/2024 (Patient Refused)Start: 02-18-2026Medicare Annual Wellness (AWV)Medicare Annual Wellness (AWV)[facility] HealthcareStart: 85-97-1778Xfhrrmnbrgfr Vaccine: 65+ Years (1 of 2 - PCV) Pneumococcal Vaccine: 65+ Years (1 of 2 - PCV)NOMS HealthcareComment on above: Postponed from 1959 (Patient Refused)Postponed from 1972 (Patient Refused)Start: 03-45-8705Uajnggmnic measurementSerum CreatinineMercy Health Defiance Hospital Start: 61-09-0032Qimgezqi blood countHemoglobin/HematocritParkwood Hospitaltart: 02-11-2025 End: 27-41-2498Yutygof encounter ddusxorbi40/23/2025 11:45 AM EDT Office Visit Neurology [address] [phone] Abby Bernstein, GLASS TINTER.WORKFORCE CONSULTANT [address] [place] [address] Follow upNeurologyComment on above:Follow upStart: 02-08-2025 End: 78-84-9335Ptxttgo encounter procedureNOMS ENDOCRINOLOGYStart: 01-14-2025 End: 06-53-0605Qtrbelu encounter procedureNOMS [facility] MedicineComment on above:ArrivedStart: 01-04-2025 End: 74-00-9676Deaolsk encounter /15/2025 3:00 PM EDT Office Visit Neurological [facility] [address] [address] Sheldon Hudson MD [address] [place] [address] Orthostatic lightheadedness [R42]; Disturbance of skin sensation [R20.9]; Abnormality of gait and mobility [R26.9]; Falls frequently [R29.6]; Orthostatic hypotension [I95.1]Neurological RestorationComment on above:Orthostatic lightheadedness [R42]; Disturbance of skin sensation [R20.9]; Abnormality of gait and mobility [R26.9]; Falls frequently [R29.6]; Orthostatic hypotension [I95.1]Start: 12-25-2024 End: 43-80-3777Uanzeqixfmeaj metabolic 2000 panel - Serum or PlasmaComprehensive metabolic panel Lab Routine Muscle cramps Hypocalcemia Stage 3b chronic kidney disease ([facility]) Expected: 12/25/2024 (Approximate), Expires: 12/25/2025[facility] Work Phone: Comment on above:Expected: 12/25/2024 (Approximate), Expires: 12/25/2025Start: 12-25-2024 End: 70-20-3592Eihhgtzyx [Mass/volume] in Serum or PlasmaMagnesium Lab Routine Muscle cramps Expected: 12/25/2024 (Approximate), Expires: 12/25/2025NOMS HealthcareComment on above:Expected: 12/25/2024 (Approximate), Expires: 12/25/2025Start: 12-25-2024 End: 36-18-5810DMD W/REFLEX TO FT4TSH W/REFLEX TO FT4 Lab Routine Muscle cramps Acquired hypothyroidism Expected: 12/25/2024 (Approximate), Expires: 12/25/2025 N[facility]S HealthcareComment on above:Expected: 12/25/2024 (Approximate), Expires: 12/25/2025Start: 12-25-2024 End: 73-46-4088Udmcugn encounter hfvunnrow79/05/2025 9:00 AM EDT [facility] [address] [facility] [place] [phone] Shivani Adams NP [address] [facility] [place], [place] [phone] [facility] HospitalComment on above:Arrived Start: 13-98-6877EMFUI-19 Vaccine ( season)COVID-19 Vaccine ( season)MetroHealthStart: 19-79-9174Anxiugmlg vaccinationMercy Hospital South, [facility] Start: 12-15-2024 End: 41-67-2802gvtklokczi38/26/2025 9:15 AM EDT Results Only Tama [facility] [address] [facility] [place] [address] Jahrnd [facility] LaboratoryStart: 12-14-2024 End: 19-82-3798NKIALSTHXJFIA REC BINDING ABACETYLCHOLINE REC BINDING AB Lab Routine Ptosis of right eyelid Hoarseness of voice Expected: 12/14/2024, Expires: 03/15/2025[facility] Work Phone: Comment on above:Expected: 12/14/2024, Expires: 03/15/2025Start: 12-03-2024 End: 64-04-8357Dmpbqor encounter eyurutviz53/14/2025 9:00 AM EDT Office Visit KYLE LOPEZ [address] [place] [phone] Shivani May NP [address] [place] [phone] KYLE MORRISONtart: 10-29-2024 End: 03-06-6021Ichjrxn encounter procedureNOMS ENT NORWALKComment on above: ArrivedStart: 10-15-2024 End: 87-30-3799Pdnncfr encounter procedureNOMS ENT NORWALKComment on above: ArrivedStart: 09-22-2024 End: 47-12-9891Vybcpnu encounter procedureNOMS ENT NORWALKComment on above: ArrivedStart: 09-08-2024 End: 63-68-6456Bkpnotn encounter procedureNOMS ENT NORWALKComment on above:Acute non-recurrent maxillary sinusitis; Abnormal CT scan, sinusStart: 09-02-2024 End: 80-33-4966Biucxnt encounter qzewgwzah69/14/2025 3:00 PM EDT Office Visit [facility] [address] [place] [address] [phone], Sarah, NP [address] [place] [address] [facility] HospitalR FMComment on above:ArrivedStart: 08-21-2024 End: 66-23-0334Wypknyi encounter ggotutpnx68/02/2025 2:20 PM EDT Office Visit [facility] [address] [place] [address] [phone] Burris MD [address] [facility] [place] [address] [facility] HospitalR FMComment on above:ArrivedStart: 08-19-2024 End: 78-44-1806Bsfrecx encounter procedureANA FAITHUEComment on above:Arrived Start: 08-10-2024 End: 870136-vibpapunougnfi D3 [Mass/volume] in Serum or PlasmaVitamin D 25 hydroxy Total Lab Routine Vitamin D deficiency Expected: 08/10/2024 (Approximate), Expires: 08/10/2025[facility] HealthcareComment on above:Expected: 08/10/2024 (Approximate), Expires: 08/10/2025Start: 08-10-2024 End: 58-68-7616Fzbtwytie [Mass/volume] in Serum or PlasmaMagnesium Lab Routine Hypocalcemia Expected: 08/10/2024 (Approximate), Expires: 08/10/2025[facility] Work Phone: Comment on above:Expected: 08/10/2024 (Approximate), Expires: 08/10/2025Start: 08-10-2024 End: 87-96-1248Xkjut function panelRenal function panel Lab Routine Low serum parathyroid hormone (PTH) Hypocalcemia Expected: 08/10/2024 (Approximate), Expires: 08/10/2025[facility] HealthcareComment on above:Expected: 08/10/2024 (Approximate), Expires: 08/10/2025Start: 08-10-2024 End: 93-96-4676Zzxkysh encounter procedureNOMS ENDOCRINOLOGYComment on above: ArrivedStart: 78-77-5829Jrqiarihr vaccinationInfluenza Vaccine (#1)[facility] HealthcareComment on above:Postponed from 12/22/2023 (Patient Refused)Start: 07-22-2024 End: 90-13-3478GSE W/REFLEX TO FT4TSH W/REFLEX TO FT4 Lab Routine Acquired hypothyroidism (CMS/HCC) Expected: 07/22/2024 (Approximate), Expires: 06/10/2025 [facility] Work Phone: Comment on above:Expected: 07/22/2024 (Approximate), Expires: 06/10/2025Start: 07-21-2024 End: 53-70-0552Hbvdfnw encounter jzlpoycfi27/01/2025 8:00 AM EDT Office Visit KYLE GERRI [address] [place] [phone] Shashi Pina DO [address] [place] [phone] KYLE MORRISONtart: 07-06-2024 End: 548308-cttkdtenxolnjc D3 [Mass/volume] in Serum or PlasmaVitamin D 25 hydroxy Total Lab Routine Vitamin D deficiency Expected: 07/06/2024 (Approximate), Expires: 07/06/2025[facility] HealthcareComment on above:Expected: 07/06/2024 (Approximate), Expires: 07/06/2025Start: 07-06-2024 End: 21-67-2202Xeobrps, urine, 24 hourCalcium, urine, 24 hour Lab Routine Postsurgical hypoparathyroidism (CMS/HCC) Expected: 07/06/2024 (Approximate), Expires: 07/06/2025[facility] HealthcareComment on above:Expected: 07/06/2024 (Approximate), Expires: 07/06/2025Start: 07-06-2024 End: 99-28-8434KNXZDEWY, 24 HOUR URINECREATINE, 24 HOUR URINE Lab Routine Postsurgical hypoparathyroidism (CMS/HCC) Expected: 07/06/2024 (Approximate), Expires: 07/06/2025[facility] Work Phone: Comment on above:Expected: 07/06/2024 (Approximate), Expires: 07/06/2025Start: 07-06-2024 End: 10-77-8503Pidcvbanm [Mass/volume] in Serum or PlasmaMagnesium Lab Routine Postsurgical hypoparathyroidism (CMS/HCC) Expected: 07/06/2024 (Approximate), Expires: 07/06/2025[facility] HealthcareComment on above:Expected: 07/06/2024 (Approximate), Expires: 07/06/2025Start: 07-06-2024 End: 29-04-7293Yjyrqokfym.intact [Mass/volume] in Serum or PlasmaPTH, intact Lab Routine Postsurgical hypoparathyroidism (CMS/HCC) Expected: 07/06/2024 (Approximate), Expires: 07/06/2025[facility] HealthcareComment on above:Expected: 07/06/2024 (Approximate), Expires: 07/06/2025Start: 07-06-2024 End: 74-12-9200Fdynt function panelRenal function panel Lab Routine Postsurgical hypoparathyroidism (CMS/HCC) Expected: 07/06/2024 (Approximate), Expires: 07/06/2025[facility] HealthcareComment on above:Expected: 07/06/2024 (Approximate), Expires: 07/06/2025Start: 07-06-2024 End: 81-60-3788Cbkdatn encounter tzpzcxcta91/17/2025 10:00 AM EDT Office Visit [facility] [address] [place] [address] Latoya Redding MD [address] [place] [address] [facility] ENDOCRINOLOGYStart: 06-22-2024 End: 36-73-9201Pkodarnmcosfx receptor, modulatingAcetylcholine receptor, modulating Lab Routine Weakness Expected: 06/22/2024 (Approximate), Expires: 06/22/2025[facility] Work Phone: comment on above:Expected: 06/22/2024 (Approximate), Expires: 06/22/2025Start: 06-22-2024 End: 18-24-2902CZ Brain WO and W contrast IVMR brain w and wo contrast routine Imaging High Priority Cranial neuropathy Expected: 06/22/2024, Expires: 06/22/2025[facility] HealthcareComment on above:Expected: 06/22/2024, Expires: 06/22/2025Start: 06-22-2024 End: 66-38-9124DUTL ANTIBODY TESTMUSK ANTIBODY TEST Lab Routine Weakness Expected: 06/22/2024 (Approximate), Expires: 06/22/2025[facility] HealthcareComment on above:Expected: 06/22/2024 (Approximate), Expires: 06/22/2025Start: 06-09-2024 End: 55-24-4162Gomxhjfnvqfma metabolic 2000 panel - Serum or PlasmaComprehensive metabolic panel Lab Routine Essential hypertension (CMS/HCC) Expected: 06/09/2024 (Approximate), Expires: 06/09/2025[facility] HealthcareComment on above: Expected: 06/09/2024 (Approximate), Expires: 06/09/2025Start: 06-09-2024 End: 48-83-5481HM Chest for screening WO contrastCT lung screening low dose Imaging Routine History of smoking Expected: 06/09/2024, Expires: 06/09/2025[facility] HealthcareComment on above:Expected: 06/09/2024, Expires: 06/09/2025Start: 06-09-2024 End: [id number] 1996 panel - Serum or PlasmaLipid panel Lab Routine Arteriosclerosis of coronary artery (CMS/HCC) Expected: 06/09/2024 (Approxim ate), Expires: 06/09/2025[facility] Work Phone: Comment on above:Expected: 06/09/2024 (Approximate), Expires: 06/09/2025Start: 06-09-2024 End: 06-49-6353IXB W/REFLEX TO FT4TSH W/REFLEX TO FT4 Lab Routine Acquired hypothyroidism (CMS/HCC) Expected: 06/09/2024 (Approximate), Expires: 06/09/2025 [facility] HealthcareComment on above:Expected: 06/09/2024 (Approximate), Expires: 06/09/2025Start: 06-09-2024 End: 37-28-0808Uxiwojm encounter procedureNOMS FNR FMComment on above:Arrived Start: 05-19-2024 End: 10-82-6377Nrmsmzrjkebsp receptor, bindingAcetylcholine receptor, binding Lab Routine Ptosis of both eyelids Expected: 05/19/2024 (Approximate), Expires: 05/19/2025[facility] Work Phone: Comment on above:Expected: 05/19/2024 (Approximate), Expires: 05/19/2025Start: 05-19-2024 End: 67-73-2896Xttoufyulwexm receptor, blockingAcetylcholine receptor, blocking Lab Routine Ptosis of both eyelids Expected: 05/19/2024 (Approximate), Expires: 05/19/2025NOMS HealthcareComment on above:Expected: 05/19/2024 (Approximate), Expires: 05/19/2025Start: 19-30-6557Kqwghsu Directive DiscussionAdvance Directive DiscussionCleAvita Health System Bucyrus Hospitaltart: 32-26-6955KBTQSISR SCREENDIABETES SCREENCleaccess hospital dayton ClinicStart: 42-80-7555Bwzqjemdn vaccinationInfluenza Vaccine (#1)NOMS HealthcareComment on above:Postponed from 12/22/2023 (Patient Refused) Start: 60-89-2673Dlbtubhq blood countHemoglobin/HematocritParkwood Hospitaltart: 52-76-3933Vnwhldpqnu measurementSerum CreatinineParkwood Hospitaltart: 02-06-2024 End: 45-92-8291Scayphl encounter swmevjose53/17/2024 9:00 AM EDT Office Visit [facility] [address] [facility] [place] [phone] Radha Burris MD [address] [facility] [place] [address] ArrivedNOMS FNR FMComment on above:ArrivedStart: 67-29-4943Zdqumtsphe measurementBasic Metabolic PanelMetroHealthStart: 15-09-5760Fpoirbhmkmaa Vaccine: 65+ Years (1 - PCV)Pneumococcal Vaccine: 65+ Years (1 - PCV)NOMS HealthcareComment on above:Postponed from 1959 (Patient Refused)Start: 08-68-8848Yyxoyepwsmvm Vaccine: 65+ Years (1 of 2 - PCV)Pneumococcal Vaccine: 65+ Years (1 of 2 - PCV)NOMS HealthcareComment on above:Postponed from 1959 (Patient Refused)Start: 90-94-3463Jerne CreatinineSerum Creatinine [facility]: 03-85-2533DQ Controlled (<130/80)BP Controlled (<130/80) [facility]: 01-13-2024 End: 60-41-5838Fvjjokf encounter tfayleagw34/23/2024 1:30 PM EDT Office Visit [facility] [address] [facility] [place] [phone] Shivani Adams NP [address] [facility] [place] [address] ArrivedNOSD FNR FMComment on above:ArrivedStart: 15-12-7296Pgdkbuyc Spine MRI w/o contrast, Complete (97435), Body Site: Spine, [place] [facility] [place]: 27-69-3900CIM Lumbar Spine wo Contrast (14154), Body Site: MRI Head/Spine/Chest, Sent on: Ozp-24-6085MmpifRnfssrfw [facility] [place]: 00-62-6818VF CONTROLLED (<130/80)BP CONTROLLED (<130/80)[facility]: 12-24-2023 End: 04-31-7531Txmnmib encounter mrntlbwyk96/03/2024 9:30 AM EDT Office Visit [facility] [address] [facility] [place] [address] Radha Burris MD [address] [facility] [place] [phone] ArrivedNOMS FNR FMComment on above:ArrivedStart: 27-58-5753Uirwx-19 Vaccine ()Covid-19 Vaccine ( season)[facility]: 29-10-3989Rglbmeacf vaccinationInfluenza Vaccine (#1)[facility]: 88-05-9074ELTZN CREATININESERUM CREATININEParkwood Hospitaltart: 10-20-2023 Influenza vaccinationInfluenza Vaccine (#1)NOMS HealthcareComment on above: Postponed from 12/21/2022 (Patient Refused)Start: 04-20-2024Medicare Annual Wellness (AWV)Medicare Annual Wellness (AWV)[facility] HealthcareStart: 40-45-6300QX CONTROLLED (<130/80)BP CONTROLLED (<130/80)[facility]: 05-31-2023 End: 64-73-4865ZIOJV/MIGUEL BETHEA,[facility] Work Phone: comment on above:Expected: 05/31/2023, Expires: 08/30/2023Start: 58-29-1437Bjwyqhm Directive DiscussionAdvance Directive DiscussionParkwood Hospitaltart: 99-47-0873Hnffphxmvf AssessmentDepression AssessmentParkwood Hospitaltart: 00-40-7208ZnnjgzuhfUniversity Hospitals Geneva [facility] Start: 55-25-7991Wuslxef referralReferrals: Neurology. Diagnostic testing [facility] [place]: 02-01-2023 End: 20-34-3164Wavvmif encounter zymasjioc22/13/2023 1:45 PM EDT Appointment [place] [address] [place] [address] [facility] 01-31-2023 End: 09-24-5335Yxmwltob identified in Stool by CultureStool Culture, Test of Cure Microbiology Routine Diarrhea, unspecified type Expected: 01/31/2023 (Ap proximate), Expires: 02/07/2023[facility] Work Phone: Comment on above:Expected: 01/31/2023 (Approximate), Expires: 02/07/2023Start: 01-31-2023 End: 26-47-5938Lbloh metabolic 2000 panel - Serum or PlasmaUnMemorial Health System [facility] Work Phone: Comment on above:Expected: 01/31/2023 (Approximate), Expires: 02/01/2024Start: 01-31-2023 End: 18-65-6551GQ Abdomen and Pelvis W contrast IVCT abdomen pelvis w IV contrast Imaging STAT Left lower quadrant abdominal pain Expected: 01/31/2023, Expires: 02/01/2024[facility] Service Area Work Phone: comment on above:Expected: 01/31/2023, Expires: 02/01/2024Start: 01-31-2023 End: 66-12-5948Srxgi Pathogen Panel, PCRStool Pathogen Panel, PCR Microbiology Routine Diarrhea, unspecified type Expected: 01/31/2023 (Approximate), Expires: 02/07/2023[facility] Work Phone: Comment on above:Expected: 01/31/2023 (Approximate), Expires: 02/07/2023Start: 98-86-2012IVvJ/Tdap/Td vaccine (2 - Td or Tdap) DTaP/Tdap/Td vaccine (2 - Td or Tdap)[facility]: 01-27[facility]2023 DTaP/Tdap/Td Vaccines (2 - Td or Tdap)DTaP/Tdap/Td Vaccines (2 - Td or Tdap) [facility] CenterStart: 16-89-8726Gxlbizc vaccinationTetanus (Td or Tdap) BoosterMetroHealthStart: 88-09-7049Ensxz microalbumin profileParkwood Hospitaltart: 90-93-7776Ltmxhzss mellitus screeningDiabetes ScreeningOhioHealth Nelsonville Health CenterStart: 23-60-3233Qlhwldokgg A1c molanfwnrajK0S test (Diabetic or Prediabetic)[facility]Start: 01-01-2023 HEMOGLOBIN/HEMATOCRITHEMOGLOBIN/HEMATOCRITParkwood Hospitaltart: 01-01-2023 Hepatitis B surface antibody levelLDL CholesterolParkwood Hospitaltart: 24-24-6835Umkdu-19 Vaccine ( season)Covid-19 Vaccine ()[facility]: 77-35-7135Nhkpnlknt vaccinationMercy Health Defiance Hospital Start: 39-96-0045ZRY, Provider: Yossi Chen, Status: Pen, Time: 10:45 AMFUV, Provider: Yossi Chen, Status: Pen, Time: 10:45 AMMP[facility] [facility] [address] DO Work Phone: Start: 87-03-6595KYX, Provider: Yossi Chen, Status: Pen, Time: 2:45 PMNPV, Provider: Yossi Chen, Status: Pen, Time: 2:45 PM [facility] Work Phone: Start: 29-63-1134ZZQJDHOWQC, Provider: Arabella Terry, Status: Pen, Time: 3:00 PMVIRFUVHOME, Provider: Arabella Terry, Status: Pen, Time: 3:00 CHMX-Dbjrgnuypxysuh-Pftrm MAC1 302 Work Phone: Start: 59-62-4702MOANLOW, Provider: Arabella Terry, Status: Pen, Time: 8:00 AMSURGPMC, Provider: Arabella Terry, Status: Pen, Time: 8:00 XTPF-Tvzndmiyygfxon-Ptdgceb Work Phone: start: 03-93-7730VVGKVFROJZ, Provider: Ranjana Perrin, Status: Pen, Time: 8:30 AMVIRFUVHOME, Provider: Ranjana Perrin, Status: Pen, Time: 8:30 JAAG-Shxdomxmjcrwmq-IfkiodcChi [facility] [address] Work Phone: Start: 83-89-8358JMQNZZCNFC, Provider: Ruby Daily, Status: Pen, Time: 11:30 AMVIRFUVHOME, Provider: Ruby Daily, Status: Pen, Time: 11:30 [facility] [address] [place] Work Phone: Start: 79-93-3889HCEQ, Provider: ELIAN PROCEDURE ROOM 10,[facility]STR[facility], Status: Pen, Time: 8:00 AMEMOT, Provider: ELIAN PROCEDURE ROOM 10,MG GASTRO, Status: Pen, Time: 8:00 DULW-Lgtcsnnykukpzd-Qiaiqaw Work Phone: start: 87-99-3143TTJEYC, Provider: Beth Diego, Status: Pen, Time: 7:30 AMEGDANS, Provider: Beth Diego, Status: Pen, Time: 7:30 LZFN-Spuqfghapemaxi-Egahaxw Work Phone: start: 42-46-0537KYM, Provider: Arabella Terry, Status: Pen, Time: 10:40 AMNPV, Provider: Arabella Terry, Status: Pen, Time: 10:[address] [address] [place] Work Phone: Start: 69-06-9589HUOZQINHTR, Provider: Yoanna Quigley, Status: Pen, Time: 3:15 PMVIRFUVHOME, Provider: Yoanna Quigley, Status: Pen, Time: 3:[address] [facility] [address] [place] Work Phone: Start: 90-89-2574TBJOLNEVZF, Provider: Ruby Daily, Status: Pen, Time: 12:30 PMVIRFUVHOME, Provider: Ruby Daily, Status: Pen, Time: 12:30 UIFN-Mumyprleigxxmo-Rstnrun Voice Work Phone: Start: 05-31-2022 End: 18-31-0799Ojsfjvzfonubp metabolic 2000 panel - Serum or PlasmaCOMP METABOLIC PANEL Lab Routine Chronic migraine without aura, intractable, without status migrainosus Expected: 05/31/2022, Expires: 07/31/2022[facility] Work Phone: Comment on above:Expected: 05/31/2022, Expires: 07/31/2022Start: 56-17-8311YLQLSMK DIRECTIVE DISCUSSIONADVANCE DIRECTIVE DISCUSSIONParkwood Hospitaltart: 69-94-4276HYVHVKCUOR ASSESSMENTDEPRESSION ASSESSMENTParkwood Hospitaltart: 76-08-9862ORPWH CREATININESERUM CREATININE [facility]: 13-51-3450Rpmbkdtwk vaccinationInfluenza Vaccine (#1) [facility]HealthStart: 01-05-2022 End: 72-05-2619Denwj metabolic 2000 panel - Serum or PlasmaBasic Metabolic Panel Lab Routine EMELIA (acute kidney injury) (HCC) Expected: 01/05/2022, Expires: ON [employer] Work Phone: comment on above:Expected: 01/05/2022, Expires: 01/05/2023Start: 01-05-2022 End: 19-34-2439VJY W Auto Differential panel - BloodCBC with Auto Differential Lab Routine Acute pancreatitis, unspecified complication status, unspecified pancreatitis type Expected: 01/05/2022, Expires: 01/05/2023 [employer] Work Phone: comment on above:Expected: 01/05/2022, Expires: 01/05/2023Start: 80-66-4449Eudyjmque vaccinationBON Stalkthis [facility]ENTERStart: 57-58-1699Gbheasq referralOrthoAlliance [facility]: 13-16-6686Kotitkjib for malignant neoplasm of colonParkwood Hospitaltart: 06-21-2021 End: 59-46-8325RlpjvJtncumyl of [facility]: 12-18-1337NBTSU-19 Vaccine (4 - Booster for Moderna series)COVID-19 Vaccine (4 - Booster for Moderna series) [facility]HealthStart: 77-24-5358TFSKX-19 VACCINE (4 - Moderna series)COVID-19 VACCINE (4 - Moderna series)[facility]: 55-89-4265Mswbu metabolic 2000 panel - Serum or PlasmaBasic Metabolic PanelMetroHealthStart: 01-14-2021 Creatinine measurementBasic Metabolic PanelMetroHealthStart: 38-08-1094Earwokv stimulating hormone measurementTSHMetroHealthStart: 14-01-0345TNAAB-19 Vaccine (3 - Booster for Moderna series)COVID-19 Vaccine (3 - Booster for Moderna series)[facility]: 78-05-9030Utulyx wellness visitAnnual Wellness Visit (G0438)[facility]roHealthStart: 42-11-9463Lxpwrvrqe vaccinationFlu vaccine (#1)[place], [place]: 46-34-3272HWP Brain without Contrast DZ-Zyklxfjon-Pemipdocf 201 Work Phone: Start: 64-88-1998Mcopbnaxn aortic aneurysm screening MetroHealthStart: 07-82-6481Bkjbvpswq Aortic Aneurysm Screening (Age 65+) Abdominal Aortic Aneurysm Screening (Age 65+)MetroHealthStart: 2018 Pneumococcal 65+ years Vaccine (1 - PCV)Pneumococcal 65+ years Vaccine (1 - PCV) [facility]: 55-86-8518Cejkprrirfcq 65+ years Vaccine (1 of 1 - PPSV23)Pneumococcal 65+ years Vaccine (1 of 1 - PPSV23)[place] Start: 09-54-1985Jqkxkcgaxssg vaccinationMetroHealthStart: 2018 Pneumococcal Vaccine: 65+ (1 - PCV)Pneumococcal Vaccine: 65+ (1 - PCV)[facility]: 27-23-0273Lepuikxwqsfg Vaccine: 65+ (1 of 1 - PCV)Pneumococcal Vaccine: 65+ (1 of 1 - PCV)[facility]: 54-59-2430Ndpwvjlxggkc Vaccine: 65+ Years (1 - PCV)Pneumococcal Vaccine: 65+ Years (1 - PCV)[facility] CenterStart: 51-32-0346YENGRCTBWCMI: 65+ (1 - PCV)PNEUMOCOCCAL: 65+ (1 - PCV)[facility]: 01-01-2019Medicare Annual Wellness Visit Medicare Annual Wellness VisitParkwood Hospitaltart: 07-83-4964Hvljbqcao B (HBV) Vaccine (optional start 60+ years)Hepatitis B (HBV) Vaccine (optional start 60+ years)[facility]Start: 58-82-0311BRC Vaccine (1 - 1-dose 60+ series)RSV Vaccine (1 - 1-dose 60+ series)[facility]: 66-47-7577JWX Vaccine (1 - Risk 60-74 years 1-dose series)RSV Vaccine (1 - Risk 60-74 years 1-dose series) [facility]: 38-20-3663ZVX vaccine (optional 60+ years)RSV vaccine (optional 60+ years)[facility] CenterStart: 35-55-3116CNPMYYJS CANCER SCREENING DISCUSSIONPROSTATE CANCER SCREENING DISCUSSIONCleAvita Health System Bucyrus Hospitaltart: 2003 Measurement of occult blood in single stool specimenFITMetroHealthStart: 61-45-8134Zcrevxbtzxgt vaccinationPneumococcal Vaccine(s) (50+ yrs) (1 of 1 - PCV)MetHealthStart: 11-79-9314Afvmqlptzmjh Vaccine: 50+ (1 of 1 - PCV) Pneumococcal Vaccine: 50+ (1 of 1 - PCV)[facility]: 2003 Screening for malignant neoplasm of colonMetroHealthStart: 79-65-5034Xuvjykbz (RZV) Vaccine (1 of 2)Shingles (RZV) Vaccine (1 of 2)[facility] CenterStart: 50-01-3420Knhenhlx Vaccine (1 of 2)Shingles Vaccine (1 of 2)[facility]: 64-96-0356KUCUYRSN VACCINE (1 of 2)SHINGRIX VACCINE (1 of 2) [facility]: 28-13-3753Qyouxc Vaccines (1 of 2)Zoster Vaccines (1 of 2)[facility] CenterSt[facility]: 22-79-1872YTJSTJMJT (FIT-DNA)COLOGUARD (FIT-DNA)[facility]: 05-54-4812GyufqkzfzdvKILYMXSXHXBOccbznxbu ClinicStart: 49-22-6154MYPTOWTFGB CANCER SCREENINGCOLORECTAL CANCER SCREENING [facility]: 49-66-7775SI COLONOGRAPHYCT COLONOGRAPHYMercy Health Defiance Hospital Start: 69-73-6452KRVLJ OCCULT BLOODFECAL OCCULT BLOODParkwood Hospitaltart: 21-00-3964Zhpyqbtmg for malignant neoplasm of colonLEWISGALE [facility] Start: 82-93-6591COEQQIYPQLYXVELDKSAIWDLPAXKvjkqgfxj ClinicStart: 1993 Lipid panelLipid screenAle[place], [place]Start: 69-58-9637Dfebp 1996 panel - Serum or PlasmaLipid ScreeningParkwood Hospitaltart: 99-96-7716Qqpbf panel CholesterolMetroSelect Medical [facility] Rehabilitation HospitalStart: 28-67-9150RNOAV SCREENLIPID SCREENMercy Health Defiance Hospital Start: 29-59-9464XMnF/Tdap/Td vaccine (1 - Tdap)DTaP/Tdap/Td vaccine (1 - Tdap) [place], [place]: 91-96-9811Wjbpmweou A (HAV) Vaccine (optional start 19+ years)Hepatitis A (HAV) Vaccine (optional start 19+ years)MetroHealthStart: 62-91-4373ATOOWN PCP TEAM CHRONIC DISEASE VISITANNUAL PCP TEAM CHRONIC DISEASE VISITParkwood Hospitaltart: 41-38-0493Covywob ScreeningAnxiety Screening [facility]: 48-35-6270Qenhwaflbg ScreeningDepression Screening [facility]: 22-67-1857Parfoisqi B surface antibody levelLDL CHOLESTEROLParkwood Hospitaltart: 74-48-7981Tnotqcimf C screeningBON PARKWOOD HOSPITALStart: 37-26-5504SMNVVKTDI C SCREENINGHEPATITIS C SCREENINGParkwood Hospitaltart: 71-64-4892Rshrbfmmhu ScreenDepression ScreenLEWISGALE HOSPITAL ALLEGHANYStart: 89-31-8812Jrretsuqukxd Vaccine: 65+ Years (1 of 2 - PCV) Pneumococcal Vaccine: 65+ Years (1 of 2 - PCV)[facility] HealthcareStart: 1955 ABDOMINAL AORTIC ANEURYSM SCREENINGABDOMINAL AORTIC ANEURYSM SCREENINGParkwood Hospitaltart: 92-61-2473Ncfkbiqwz aortic aneurysm screeningAbdominal Aortic Aneurysm ScreeningParkwood Hospitaltart: 69-21-9227Txtjjkqmk C screening Hepatitis C screenWood County Hospital: 94-94-9802Oamul panelLipid Panel [facility]: 01-30-1956Medicare Annual Wellness Visit Medicare Annual Wellness Visit (AWV)[facility]: 13-15-7291Itvhjjfjw for malignant neoplasm of colonMetroGeorgetown Behavioral Hospital: 1955 Thyroid stimulating hormone measurementOklahoma Forensic Center – [facility] End: 95-62-2609Nazbs metabolic 2000 panel - Serum or PlasmaBasic Metabolic Panel Lab Routine Daily for 3 Days starting 01/05/2022 until 01/07/2022, 1 completed BON [employer] Work Phone: comment on above:Daily for 3 Days starting 01/05/2022 until 01/07/2022, 1 completedContinuous pulse oximetryPulse oximetry, continuous Respiratory Care Routine Every 4hr until discontinued starting 01/01/2022[employer] Work Phone: comment on above:Every 4hr until discontinued starting 2Culture, Blood 1Culture, Blood 1 Microbiology STAT 01/01/2022 12:00 AM EDVisTracks Phone: culture, Blood 2Culture, Blood 2 Microbiology STAT 01/01/2022 12:01 AM [employer] Phone: End: 08-81-6988Ppeflwnaxrrq pulse oximetryPulse Oximetry Spot Check Respiratory Care Routine One Time for 1 Occurrences starting 12/31/2021 until 12/31/2021SimpleRelevance Phone: comment on above:One Time for 1 Occurrences starting 12/31/2021 until 12/31/2021 End: 47-99-1793Aoh head w/o contrst materialSelect Medical Specialty Hospital - [facility] Work Phone: Comment on above:1 Occurrences starting 05/31/2022 until 06/30/2023Oxygen therapy [Minimum Data Set]Initiate Oxygen Therapy Protocol Respiratory Care Routine As Needed until discontinued starting 12/21ON Stalkthis [facility] Work Phone: comment on above:As Needed until discontinued starting 12/31/2021atient EducationColon polyps Hemorrhoids (DC)[facility] Work Phone: Surgical PathologySurgical Pathology Lab Routine Gall stone pancreatitis Release Upon Ordering for 1 Occurrences starting 01/02/2022 BON Stalkthis [facility] Work Phone: comment on above:Release Upon Ordering for 1 Occurrences starting 01/02/20221290VV-Mjrxigicm-Kdembzggt 201 Work Phone: cBaptist [facility] Wolf[facility] Children's HospitalNEGATED: Highlighted row has been ruled out!Planned Goals not qxsbrhprahHX-Vmwoueuay-Jfscmpfdm 201 Work Phone: Immunizations Immunization DateImmunizationNotesCare JdfvrhdvArmcwheu37-11-5024Ysompro (primary 12+ yrs) COVID-19 vaccine, mRNA, spike protein, LNP, PF, 100 mcg/0.5 mL (XGU=967)Radha Burris MD Work Phone: [phone]zXaqebx38-30-0605Mrobrkt SARS-CoV-2 Vaccination Generic [facility] HospitalGturovmohx12-41-6906Trttxuo (primary 12+ yrs) COVID-19 vaccine, mRNA, spike protein, LNP, PF, 100 mcg/0.5 mL (VEP=178)Radha Burris MD Work Phone: [phone]fJfyxgw25-55-5481Rofypjy SARS-CoV-2 Vaccination Generic [facility] HospitalMsxqpdjmyo81-42-8412igglomwdb, injectable, quadrivalent, preservative freeRadha Burris MD Work Phone: [phone]zDwuhlu88-20-5119efukmdrug virus vaccine, unspecified formulationRadha Burris MD Work Phone: [phone]kGxnnaq05-86-1591wsnnbfz toxoid, reduced diphtheria toxoid, and acellular pertussis vaccine, Cem Fox Other MetroHealthNEGATED: Highlighted row has not occurred! 23-29-9623gotyejjyh, high dose seasonal, preservative-freePatient Objection Thor Fox Other [facility] Other NEGATED: Highlighted row has not occurred!06-14-2015 influenza, injectable,quadrivalent, preservative free, pediatricPatient ObjectionSrubi Fox Other [facility] Other Payers DatePayer CategoryPayerPolicy [id number] Health Insurance [id number].10788-09-3089Vpnacoyufj Indemnity [employer]AL .2.840.702845.1.13.56.2.7.9.460174.425.19472-56-5484Ksworxx 1.2.840.655632.1.13.56.2.7.3.704747.315 2019Medicare FFSMEDICARE 1.2.840.030576.1.13.56.2.7.9.117968.100.315 2019Medicare 1.2.840.352125.1.13.56.2.7.3.197892.315 [id number] 1960 [id number] 2.16.840.1.687070.3.579.2.355 [id number] 2.16.840.1.400448.3.579.2.6[id number] 2.16840.1.034228.3.57[id number] 2.16.840.1.318554.3.579.2.10751-20-2484Cahgyhf84186416 2.16.840.1.031769.3.579.2.42626-95-4017Zmlmrft59651051 2.16.840.1.250472.3.579.2.36190-30-3988Eftrski521013701 2.16.840.1.879532.3.579.2.44987-51-9761Ymoddng8623971 2.16.840.1.344262.3.579.2.65152-99-2419Tikndtd3261398 2.16.840.1.941655.3.579.2.24119-91-2781Nbxsaeg1699643 2.16.840.1.017495.3.579.2.66531-81-0065Zhjuqjk9652903 2.16840.1.222728.3.579.2.42880-48-8338Mpbiqmr1885254 2.16.840.1.659170.3.579.2.06645-38-6831Aqxgtgr4964021 2.840.1.432777.3.579.2.00513-62-8569Tpiwqnf8390472 2.16840.1.139178.3.579.2.66458-71-0724Gohrmaa9028876 2.840.1.858831.3.579.2.21538-16-7687Jsshscm5651984 2.840.1.036668.3.579.2.00994-38-5035Uhwkwim7916912 2.840.1.605142.3.579.2.48239-87-4323Fhbwjdq1927078 2.840.1.874866.3.579.2.11364-35-9948Knisjdx9897776 2.840.1.654775.3.579.2.06599-61-7415Itrgsbh7413688 2.840.1.384971.3.579.[id number] 2.840.1.177984.3.579.2.37380-06-4994Ztlzvxd69454498 2.840.1.842729.3.579.2.488637-99-3149Oiimcfz15605936 2.840.1.979076.3.579.2.133335-09-0618Wvajgkv62953114 2.840.1.120147.3.579.2.214869-01-5846Tencxyb76300088 2.840.1.412544.3.579.2.319544-50-9380Qafskzb23968968 2.840.1.505817.3.579.2.823328-76-0535Assvwfg863070091 2.16.840.1.682176.3.579.2.00504-70-5059Oauatsb986728148 2.16.840.1.535904.3.579.2.01342-81-3250Jznuexx851821315 2.16.840.1.768502.3.579.2.82509-55-4325Rdhmosh711892997 2.16840.1.725262.3.579.2.84603-96-0907Nkakucl490919247 2.16840.1.633690.3.579.2.80564-24-1504Vnyvdtt382249452 2.840.1.223935.3.579.2.81199-64-9583Ibjcpyh448265216 2.16840.1.585116.3.579.2.27982-27-0766Lqulqyn151817625 2.840.1.061525.3.579.2.07524-41-3475Riaqwvs783622468 2.840.1.755760.3.579.2.73561-98-9167Nzpaygi638894028 2.16840.1.781115.3.579.2.51491-14-0625Rzixtuw520853071 2.16840.1.543395.3.579.2.36238-22-4894Cdvqtgn912675517 2.840.1.494374.3.579.2.31191-42-6637Jslmeqr101986051 2.16840.1.814931.3.579.2.93354-87-5455Mgvaamc65669279 2.16840.1.259431.3.579.2.176799-83-4242Hugfadl08637234 2.16840.1.161618.3.579.2.990183-79-9378Cdrqbmb79516025 2.16840.1.253692.3.579.2.458770-87-3393Dabggwv0336536 2.840.1.490537.3.579.2.096449-01-1740Cwfixpg0287626 2.840.1.569537.3.579.2.450795-57-3760Xkpuhuh13559036 2.0.1.356446.3.579.2.795702-07-6893Mghuiob9273431 2..1.317193.3.579.2.824965-30-6358Roqemjm09675338 2.0.1.744246.3.579.2.70724-35-5620Uhspqsf68104495 2.0.1.447207.3.579.2.77731-18-3004Nvkzaxm83630442 2.0.1.627988.3.579.2.48222-12-0582Fqmvlzd44107580 2..1.270726.3.579.2.071123-84-7124Xhqkwwb81029385 2.0.1.368890.3.579.2.430801-15-9198Evpqvhm80859643 2.0.1.465350.3.579.2.468248-95-0007Dzexprr26227760 2.840.1.831863.3.579.2.521399-28-5212Dwihzfi54310797 2.840.1.939378.3.579.2.840164-54-6796Pdmjxoa4609939 2.16.840.1.537794.3.579.2.164115-49-3024Ruqgteu2119312 2.16.840.1.193964.3.579.2.151122-70-5693Evjkjmn4339452 2.16.840.1.261215.3.579.2.960536-39-5967Hpjndnr2201063 2..840.1.124680.3.579.2.554728-15-0435Lqbzrlr6609166 2.16.840.1.596113.3.579.2.555435-89-7546Wwjyfow2278263 2..840.1.207893.3.579.2.104409-16-4591Njgftgk5904014 2..840.1.485196.3.579.2.845835-34-5483Exytedq8455319 2.16.840.1.010716.3.579.2.930093-56-0063Ruxjmfn8459081 2..840.1.825149.3.579.2.188936-58-7732Hggykdx7789596 2..840.1.139220.3.579.2.403111-62-6499Teotbyx7692489 2.840.1.410186.3.579.2.1259[facility] [id number] 2.840.1.846382.3.579.2.531 Social History DateTypeDetailFacilityAssertionUnknown if ever qihmzzRQ-Mliaqexch-Jofjagizx 201 Work Phone: Start: 33-72-2401Lvr Assigned At BirthNot on [place], [place]: 01-06[place]2020 End: 84-80-5312Zyq Assigned At BirthParkwood Hospitaltart: 89-99-6857Veelbxb smoking status NHISNever smoked tobaccoSNAP Interactive, Inc. Phone: start: 01-06-2020 End: 44-44-2454Ibuyyfe use and exposureSmokeless tobacco non-userSNAP Interactive, Inc. Phone: start: 12-21-2021 End: 30-19-1023Veuocpgf to SARS-CoV-2 (event)Not sureCoastal World Airways Work Phone: start: 01-06-2020 End: 38-08-3189Jhgvzkc smoking status NHISEx-smokerMetroHealthStart: 04-22-1967 End: 95-34-7914Ilvaxpr of tobacco useCurrent smokerMetroHealthStart: 04-22-1967 End: 70-26-8015Lfnsnjb of tobacco useCigarette SmokerMetroHealthStart: 01-27-2020 End: 21-45-7110Xkmnxvq intakeCurrent drinker of alcohol (finding)[facility] Start: 01-06-2020 End: 71-89-5057Rzoxzfs intakeMarquette ClinicStart: 52-01-2993Uxippwu SDOH Alcohol Iwngaysjn6BzkwyVdpworMfhls: 28-30-8914Ipcajwr Comment1 beer once a month [facility]2012 End: 07-23-5559Cacds Depression Screening Exrsrkufxq4Aszmnvklg ClinicStart: 01-02-2024 End: 94-69-7984Xdzmkih smoking status NHISTobacco smoking consumption unknown [facility] Work Phone: Start: 48-64-2845Cfw Assigned [facility] HospitalWithin the last year, have you been afraid of your partner or ex-partner?NoNOMS HealthcareAre you now , , , , never or living with a partner?MarriedNOMS HealthcareHow often to you have a drink containing alcohol?Monthly or lessNOMS HealthcareHow many standard drinks containing alcohol do you have on a typical day?1 or 2NOMS HealthcareHow often do you have 6 or more drinks on 1 occasion?NeverNOMS HealthcareHow hard is it for you to pay for the very basics like food, housing, medical care, and heatingNot very hardNOMS HealthcareDo you feel stress - tense, restless, nervous, or anxious, or unable to sleep at night because yourmind is troubled all the time - these days [OSQ]Not at allNOMS Healthcare(I/We) worried whether (my/our) food would run out before (I/we) got money to buy more.Never trueNOMS HealthcareStart: 88-88-2671Gkqyobk CommentLast smoked:>20 years agoNOMS HealthcareStart: 77-63-9190Olfmkfw Commentone beer a month. Caffeine intake: 2- 3 cups per day of coffeeNOMS HealthcareStart: 19-92-2520Khrjyx identity Identifies as male gender (finding)NOMS HealthcareStart: 25-83-0347Xnlrpqi Commentone half of a beer once a monthParkwood Hospitaltart: 03-28-2021 End: 01-99-8829Khimrxia to SARS-CoV-2 (event)Unable to assessMer[facility] Start: 11-87-3800Grvjlzm intakeAlcohol Use DetailsOrthoAlliance of OhioComment on above:quit 1983Start: 65-10-5232Xzsecl OrientationStraight or heterosexual [facility] OhioStart: 79-73-4422Blgzjx OrientationChoose not to disclose [facility] OhioAre you now , , , , never or living with a partner?SeparatedNOMS HealthcareHistory of tobacco use Pipe SmokerNOMS HealthcareHistory of tobacco useCigar SmokerNOMS Healthcare Start: 20-71-7945Teqeasx CommentCaffeine intake: 1 cups per day of coffeeNOSD HealthcareTobacco smoking statusSouthern [facility] Start: 01-22-2019 End: 69-81-9684JpaZoub (finding)[facility] Centertart: 01-27-2020 Details of drug misuse behaviorHas never misused drugs (situation)[facility] Medical Equipment Procedure CodeEquipment CodeEquipment Original TextEquipment IdentifierDaClementina Duarteellation Intraocular Vision System C3f8 125gm - [id number] Start: 94-90-4374Ukub Iol Ultrasert 16 - [id number]: 10-15-2017 Sleeve 2.4mm 1.5mm Silicone 30mm Scleral Round Sterile - [id number] Start: 49-93-2005Sxzgr Silicone [id number] Retinal 9229 Sterile - [id number]: 10-15-2017 Goals DatePatient GoalDesired Activity/State Functional Status LagvIgvyfzszkoTngtsiZctsisuz30-65-1175Wihgorq Health Questionnaire 2 item (PHQ- 2) [Reported][facility] CenterGohevmixiv43-47-7214Adkceow Health Questionnaire 2 item (PHQ- 2) [Reported][facility] CenterYjzincfsdv17-15-7286Cuceskj Health Questionnaire 2 item (PHQ- 2) [Reported][facility] CenterDcgppcgwkv11-74-4636Kmkwg score [AUDIT-C]1 12/17/2023 11:34 AM EDT Mychart, GenericNOMS Ysrlvlwwdh43-20-6276Spa often do you have a drink containing alcohol?Monthly or less 12/17/2023 11:34 AM EDT Mychart, Generic Monthly or lessNOMS Neuqsyvlqg62-02-3778Elv many standard drinks containing alcohol do you have on a typical day?1 or 2 12/17/2023 11:34 AM EDT Mychart, Generic 1 or 2NOMS Roolhzdmdr18-57-5391Oll often do you have 6 or more drinks on 1 occasion?Never 12/17/2023 11:34 AM EDT Mychart, Generic NeverNOMS Healthcare 56-51-0287Yxu you deaf, or do you have serious difficulty hearingNo 12/15/2020 12:20 PM Kathie Guillen APRN.[facility] Work Phone: [phone] you blind, or do you have serious difficulty seeing, even when wearing glassesNo 12/15/2020 12:20 PM Kathie Guillen APRN.NEETU [facility]08-26-2021Do you have serious difficulty walking or climbing stairsNo 12/15/2020 12:20 PM Kathie Guillen APRN.[facility]08-26-2021Do you have difficulty dressing or bathingNo 12/15/2020 12:20 PM EDT Kathie Lee APRN.CNP [facility]08-26-2021 Because of a physical, mental, or emotional condition, do you have difficulty doing errands alone such as visiting a physician's office or shoppingNo 12/15/2020 12:20 PM EDT Kathie Lee APRN.CNP [facility] HospitalNEGATED: Highlighted rowFunctional performanceFunctional status health issues are not documented [facility] 201 Work Phone: Mental Status MpfeYvswdmrgzbEwmdquNjgpkirm06-79-0575Ufpvjgm of a physical, mental, or emotional condition, do you have serious difficulty concentrating, remembering, or making decisionsNo 12/15/2020 12:20 PM EDT Kathie Lee APRN.CNP [facility] CenterNEGATED: Highlighted rowCognitive function [Interpretation] Cognitive status health issues are not documented [facility] Work Phone: Clinical Notes 2018 to 02-11-2025 Note Date & AlbyZowrWarvdeaq79-14-9760 NoteHNO ID: [id number] Author: ABBY BERNSTEIN APRN.CNP Service: ? Author Type: Nurse Practitioner Type: Progress Notes Filed: 02/12/2025 15:20 Note Text: [facility] Follow Up Yoli Antunez is a 69 year old male who presents today for follow up regarding OH Recording using ambient AI software for draft documentation of the visit was discussed with the patient/authorized sales representative graphic art; all questions welcomed and answered. Patient/authorized sales representative graphic art agreed to proceed PMH: AAA Arthritis CKD state 3 CAD Personal history of smoking GERD GOUT HLD HTN Hypothyroid ADA with BIPAP RLS TIA Chart Review: 11/10/2024 - NeuromuscularAbby APRN.CNP ASSESSMENT Yoli Antunez is a 69 year [...] that time. 3.Follow up in 3 months ---- Sheldon Hudson MD Mr. Antunez is a right-handed 69 year old year old male with Progressive gait instability and dizziness and OH since 2021 who was referred for possible parkinsonism, but also has weakness of his bilateral proximal lower extremities and R ptosis that worsens with activity. On exam, he did have hypomimia, loss of voice modulation, some mild bradykinesia affecting R>L side, possibly some mild rigidity of the BUE only with activation, and reduced R arm swing. He does note a rest tremor at home. At this time, he does not have enough features on exam to make a diagnosis, so we will get a DaTscan. Differential includes IPD vs MSA given OH, but he does not have any other autonomic features, but does have falls. If DaTscan positive for a neurodegenerative disorder, this would not explain the R eye ptosis or proximal LE weakness for which he follows with NM. The following are the current problems noted and addressed during this visit: Abnormality of gait and mobility (primary encounter diagnosis) Falls frequently Orthostatic hypotension Plan 01/07/2025 Visit: 1. Abnormality of gait and mobility (R26.9) 2. Falls frequently (R29.6) Chronic gait disturbance, shuffling, and forward falls approximately once per month over the past 2-3 years, with subtle bradykinesia and reduced right arm swing on exam. Differential includes Parkinsonian syndrome, though findings are mild and do not fully meet diagnostic criteria. - Ordered EFRAÍN scan to assess for Parkinsonian syndrome; order provided for local completion with results to be sent to this office. - Requested patient obtain and provide CD of prior brain MRI from June ([facility]) for review. - Educated patient on the limitations of Parkinson's diagnosis and the ration (more content not included)...[facility]10-10-2025 Nuclear medicine Diagnostic study [facility] [place] [id number] Nuclear Medicine Report Signed Patient: Yoli Antunez Jr MR#: [id number] : 1955 Acct:[id number] Age/Sex: 69 / M ADM Date: 5 Loc: [place] Room: Type: [facility] Attending Dr: Maryann Armstrong MD Copies to: NON STAFF Chaz Smith Jr, DO Maryann Armstrong MD~ Ordering Provider: NON STAFF Date of Service: 01/29/25 NM/NM brain spect datscan: R26.[address] Idris Armstrong M.D [facility] Nuclear medicine Efraín scan. Reason for exam: Abnormal gait and mobility. TECHNIQUE: Planar imaging of the brain was performed after administration of 5.3mCi of I-123 Efraín. Findings: There appears to be blunting of the activity involving the basal ganglia left greater than right suggestive of parkinsonian syndrome. NM/NM brain spect datscan IMPRESSION: Abnormal Efraín scan. Impression dictated by: Chaz Smith Jr., DJoy 01/29/2025 12:56 PM Dictation Location: [place] [address] Transcribed By: [facility] 01/29/25 1256 Dictated By: Chaz Smith Jr, DO 01/29/25 1246 Signed By: 01/29/25 1256 [facility]09-30-2025 NoteCardiovascular Medicine [facility] SUBJECTIVE Chief Complaint Patient presents with Follow-up Patient is here today for a follow up [facility] ER on 01/10/2025. Patient states if he does anything at all he gets chest pain, SOB, blood pressure drops, dizziness/lightheadedness, which causes him to fall, profuse sweating, thinks he had about of A-Fib, patient doesn't feel is pacemaker is kicking in when his blood pressure drops down. Atrial Fibrillation Hypertension Coronary Artery Disease Transient Ischemic Attack Hyperlipidemia Chest Pain LVH Fatigue Shortness of Breath Yoli Antunez is a 69 y.o. male here for hospital follow-up. Atrial Fibrillation Symptoms include chest pain and shortness of breath. Past medical history includes atrial fibrillation, CAD and hyperlipidemia. Hypertension Associated symptoms include chest pain and shortness of breath. Coronary Artery Disease Symptoms include chest pain and shortness of breath. Risk factors include hyperlipidemia. Transient Ischemic Attack Associated symptoms include chest pain and fatigue. Hyperlipidemia Associated symptoms include chest pain and shortness of breath. Chest Pain Associated symptoms include shortness of breath. His past medical history is significant for CAD, hyperlipidemia and TIA. Fatigue Associated symptoms include chest pain and fatigue. Shortness of Breath Associated symptoms include chest pain. His past medical history is significant for CAD. PMHx: CAD s/p PCI, a.fib/flutter s/p ablation and s/p WATCHMAN, SND s/p PPM implant on 07/09/2023, orthostatic hypotension, TIA, POTS, intermittent expressive aphasia, HTN, HLD, chronic chest pain 01/19/2025 Pt went to [facility] ER due to having an episode of CP then he had a syncopal episode. His work up in the ER was unremarkable. His Sarah accompanied him today. He continues to have episodes of CP with exertion. BP in the AM 160s/80s and then may drop to 90s/40s after a few hours. He c/o ongoing dizziness. He often will have chest pain when he is climbing up the stairs in his barn. He notes his [employer] debbi will tell him he is in a.fib intermittently. Last episode of A.fib on his pacemaker was back in Mar, 2024. During office visit, he had an episode of chest pain while sitting, left sided - accompanied dizziness. BP was 130s/70s. He then developed aphasia which has happened to him before on multiple occasions. Advised he go to the ER for further evaluation but he declines and notes this will pass in a few hours. 10/01/2024 After his last visit we tried [...] cervical disc disease. Neuro referred him to [facility] for further evaluation of his ptosis [...] is too low. Denies LE edema, syncope. Hospital course: Yoli Peoples Harmony Garcia is a 68 y.o. male for primary hypertension, atrial fibrillation on sotalol status post watchman not on anticoagulation, sinus node dysfunction status post dual-chamber permanent pacemaker, coronary artery disease status post cardiac catheterization 08/2023, POTS who presented to [facility] ED with ongoing chest [...] is 1.24 and Negative Lexiscan ECG stress te (more content not included)...[facility]09-25-2025 History of Present illness Narrative* Radha Burris MD - 01/14/2025 10:20 AM EDTAssociated Problem(s): Acquired hypothyroidism * Radha Burris MD - 01/14/2025 10:20 AM EDT Subjective ?Quick Links Last Note in Specialty Snapshot Edit RFV/CC Edit Screenings Current [facility] Patient ID: Yoli Antunez is a 69 y.o. male who presents for Follow-up and ER Follow-up. HPI Flowsheet Row Patient Outreach from 01/11/2025 in [facility] with Harleen Martinez RN Hospital Information ED, Hospital or Senior Care Facility Discharge? ED Patient has been contacted within 2 days of being seen in the ED Yes Diagnosis dizziness, chest pain Discharge Date 01/10/25 Discharged To: Home Setting Engagement Admission Date 01/10/25 Medications Discharge medications reviewed and reconciled from hospital? Not applicable Appointments Does the patient have a primary care provider? Yes Does the patient have any upcoming specialty appointments? Yes Self Management Does patient have home health? no Patient Teaching Does the patient have access to their discharge instructions? Yes What is the patient's perception of their health status since discharge? Returned to baseline/stable Wrap Up History of Present Illness The patient presents for evaluation of syncope, microvascular disease, Parkinson's disease, leg pain, and hypertension. He experienced a fainting episode, during which he lost consciousness and found himself sitting on the floor upon regaining awareness. He was able to reach his truck before his arrived. An emergency room visit did not reveal any significant findings. His director patient suspects microvascular disease, but due to his pacemaker, an MRI cannot be performed to confirm this. He has been advised to rest at home, but he finds this impractical. He has learned to pace himself when climbing stairs, taking breaks after every 9 or 10 steps. 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 He has a pacemaker implanted, which is functioning at 92% efficiency. He also reports experiencing chest pain and sweating during physical exertion, regardless of the temperature. He has a follow-up appointment with his director patient on 01/19/2025. He has been diagnosed with Parkinson's disease and is under the care of a neurologist at [facility]. A DaTscan has been ordered to assess his dopamine levels before initiating any medication. He has a scheduled appointment with his neurologist in 3 weeks. He experiences leg pain, primarily in the thighs and occasionally extending to the calves. The painis described as severe, reza to muscle tearing, but not cramp-like. He finds some relief from wrapping his legs with Shawn bandages, although they tend to slip off by morning due to mild swelling. He has tried various treatments including Mirapex, muscle relaxants, CBD oil, analgesic roll- ons with lidocaine, and Aleve, with varying degrees of success. He discontinued Mirapex for a period, but the symptoms returned after 1 to 2 months, prompting him to resume the medication about a year ago. His blood pressure readings fluctuate, with systolic readings around 160 upon waking up at 5:30 or 6:00 AM, but normalizing an hour later. He needs to be cautious when using nitroglycerin as it can cause a rapid drop in his blood pressure. His thyroid function was checked a few weeks ago. He is alternating between 150 mcg and 175 mcg of his thyroid medication daily. Occupation: Manages six part-time jobs ?Quick Review Review Full History Edit History Meds - calcitriol (Rocaltrol) 0.25 MCG capsule calcium carbonate (Os-Atilio) 1250 (500 Ca) MG chewable tablet ergocalciferol (Vitamin D2) 1.25 MG (05646 UT) capsule levothyroxine (Synthroid) 175 MCG tablet levothyroxine (Synthroid, Levoxyl) 150 MCG tablet magnesium lactate CR (Magtab) 84 MG (7MEQ) ER tablet midodrine (Proamatine) 5 MG tablet nitroglycerin (Nitrostat) 0.4 MG SL tablet pramipexole (Mirapex) 1 MG tablet sotalol (Betapace) 120 MG tablet --- PMH - A-fib (HCC) [...] to support your medical decision making. BP 128/80 Pulse 80 Ht 6' 6 Wt 261 lb 6.4 oz SpO2 96% BMI 30.21 kg/m Physical Exam Physical Exam General Appearance: Normal. Vital signs: Within normal limits. HEENT: Within normal limits. Respiratory: Clear to auscultation, no wheezing, rales or rhonchi. Cardiovascular: Regular rate and rhythm, no murmurs, rubs, or gallops. Extremities: no edema, palpable pulses. Skin: Warm and dry, no rash. Neurological: Normal. Psychiatric: Normal. ?Quick Links Full Problem List Back Pain Cardiology CHF Chronic Pain GI Headache Hypertension Thyroid Assessment & Plan Dizziness Pain in both lower extremities Acquired hypothyroidism Assessment & Plan 1. Syncope: - He experienced a syncopal episode and was found sitting on the floor. - The emergency room visit did not reveal any significant findings. - The director patient suspects microvascular disease, but an MRI cannot be performed due to his pacemaker. - He is advised to ensure he has a place to sit down when symptoms arise to prevent falls. 2. Microvascular Disease: - The director patient is convinced of microvascular disease, but it cannot be confirmed with an MRI due to the pacemaker. - No specific treatment will be initiated at this time. 3. Parkinson's Disease: - Neurology suspects Parkinson's disease and has recommended a DaTscan to check dopamine levels before starting any medications. - He is advised to follow up with neurology in 3 weeks. 4. Leg Pain: - He experiences leg pain primarily in the thighs, sometimes extending to the calves. The pain is described as severe, similar to muscle tearing. - He uses Shawn wraps for some relief and has tried muscle relaxants, CBD oil, and analgesic roll-onswith lidocaine. Increasing the dose of Mirapex was discussed as it is sometimes used for Parkinson's disease. - If Mirapex does not help, a muscle relaxant may be considered. 5. Hypertension: - His blood pressure fluctuates, with higher readings in the morning. - He needs to be cautious when using nitroglycerin as it can cause a rapid drop in his blood pressure. 6. Thyroid Management: - His thyroid levels were checked a couple of weeks ago. He is alternating between 150 mcg and 175 mcg of his thyroid medication daily. - It is too soon to recheck, but thyroid levels should be reassessed in 2-3 weeks to ensure they are within the normal range. documented in this encounterMer[facility] [id number] NoteHNO ID: [id number] Author: SHELDON HUDSON MD Service: ? Author Type: Physician Type: Progress Notes Filed: 01/07/2025 16:37 Note Text: [facility] - NEW PATIENT EVALUATION Recording using FibeRio software for draft documentation of the visit was discussed with the patient/authorized sales representative graphic art; all questions welcomed and answered. Patient/authorized sales representative graphic art agreed to proceed Primary Movement Disorders Neurologist: Sheldon Hudson MD Primary Movement Disorders DEBBI: Not yet assigned Referring Provider: Abby Bernstein [id number] [facility] [address] Primary Care Provider: Radha Burris MD [address] [facility] [id number] Dear Abby Bernstein: Thank you for referring [...] Row Office Visit from 01/07/2025 in [facility] Appointment from 01/04/2025 in [facility] Physical [facility] T Score 39.8 39.8 [...] two times a d (more content not included)...[facility] 12-31-2024 NoteSYNCOPE AND AUTONOMIC DISORDERS CLINIC Reason for Consultation: Chest pain HPI: Yoli Peoples Harmony Garcia is a 69 y.o. year old with [...] Use: Not At Risk (12/17/2023) Received from [facility] AUDIT-C Frequency of Alcohol Consumption: Monthly [...] Physical Activity: Sufficiently Active (12/17/2023) Received from [facility] Exercise Vital Sign Days of Exercise per Week: 7 days Minutes of Exercise per Session: 30 min Stress: Patient Declined (12/17/2023) Received from [facility] Citizen Of [place] of Occupational Health - Occupational Stress Questionnaire Feeling of Stress : Patient declined Social Connections: Moderately Isolated (12/17/2023) Received from [facility] Social Connection and Isolation Panel [NHANES] Frequency of Communication with Friends and Family: More than three times a week Frequency of Social Gatherings with Friends and Family: More than three times a week Attends Mu-Ism Services: Never Active Member of Clubs or Organizations: No Attends Club or Organization Meetings: Never Marital Status: Intimate Partner Violence: Unknown (04/08/2024) Humiliation, Afraid, Rape, and Kick questionnaire Fear of Current or Ex-Partner: No Emotionally Abused: Not on file Physically Abused: Not on file Sexually Abused: Not on file Depression: Not at risk (12/28/2024) Received from [facility] PHQ-2 PHQ-2 score: 0 Housing Stability: Low Risk (04/08/2024) Housing Stability Vital Sign Unable to Pay for Housing in the Last Year: No Number of Times Moved in the Last Year: Not on file Homeless in the Last Year: No Utilities: Not At Risk (04/08/2024) [facility] Utilities Threatened with loss of utilities: No Health Literacy: Adequate Health Literacy (12/17/2023) Received from [employer] [facility] Literacy Frequency of need for help [...] (TTE) w/wo Imaging Agent, (more content not included)...[facility]09-05-2025 History of Present illness Narrative* Shivani Adams NP - 12/25/2024 9:00 AM EDT Images from the original [...] which subsides by morning. The pain is severeenough to disrupt sleep, prompting walking to alleviate [...] a workup for myasthenia gravis at the [facility] and has an upcoming appointment with neurology. One eye closes once or twice a day and cannot be reopened. ?Quick Review Review Full History Edit History Meds - calcitriol (Rocaltrol) 0.25 MCG capsule calcium carbonate (Os-Atilio) 1250 (500 Ca) MG chewable tablet ergocalciferol (Vitamin D-2) 1.25 MG (24137 UT) capsule levothyroxine (Synthroid) 150 MCG tablet [...] adequate hydration and continue stretching exercises. Further treatmentwill be determined based on the results of [...] a workup for myasthenia gravis at the [facility] and has an upcoming appointment with neurology. documented in this encounterMercy [facility], formerly [facility] [id number] Telephone encounter Note* Telephone Encounter - Shaylee Sweet - 12/15/2024 11:36 AM EDT Type of record received: Labs Records received from: [employer] Records received via: Faxed Records scanned into Local[employer]: Yes Records have been forwarded to: Day [facility]08-26-2025 Miscellaneous Notes* Telephone Encounter - Shaylee Sweet - 12/15/2024 11:36 AM EDT Type of record received: Labs Records received from: [facility] Records received via: Faxed Records scanned into Epic: Yes Records have been forwarded to: Day documented in this encounterMer[facility]07-22-2025 Instructions* Patient Instructions* Abby Bernstein APRN.CNP - 11/10/2024 12:36 PM EDT PLAN: Consult to movement clinic Send me AChR and Musk labs please Follow up in 3 months documented in this encounterMercy Health Defiance [facility] History of Present illness Narrative* Abby Bernstein APRN.CNP - 11/10/2024 11:45 AM EDT Images from the original note were not included. [facility] Follow Up Yoli Antunez is a 69 year old male who presents today for follow up regarding [place] PMH: AAA Arthritis CKD state 3 CAD Personal history of smoking ZONIA GOUT HLD HTN Hypothyroid ADA with BIPAP RLS TIA Chart Review: María Pearl APRN.WORKFORCE CONSULTANT IMPRESSION/PLAN: Orthostatic hypotension Tilt table testing indicative of orthostatic hypotension. This would likely explain his symptoms of orthostatic lightheadedness and near syncope. He notes that since the tilt table test, his Benazepril and Diltiazem have been discontinued, but his orthostatic symptoms persist. He was seen by Dr. Vilchis at [facility] who would like to place a [...] 45-03 70-01 91 68 76 SEE NOTE, [id number] ; feels like something is pulling on his eyes 70-02 98 69 72 CH. PAIN 3/10 chest [...] are improving REC-04 73 finger cuff recalibrating; REC-05 114 77 59 12L 1504; 112/74 [...] focal stenosis, occlusion, or aneurysmal dilatation. Complete la posta of Michel. Electronically signed: Cher Castaneda. CT [...] kidney disease) stage 3, GFR 30-59 ml/min ([facility]) Ex-smoker Gastric ulcer GERD (gastroesophageal reflux disease) [...] BL lower extremities Movement/Coordination Finger-to- nose-finger and xqok-ay-emut intact bilaterally. No evidence of ataxia arms. [...] & Plan 11/10/2024 - Neuromuscular, Abby Bernstein APRN.WORKFORCE CONSULTANT ASSESSMENT Yoli Antunez is a 69 year old who is here today for follow up for orthostatic hypotension. Heis a previous patient of María Pearl APRN.NEETU [...] evident on today's vitals) for further evaluation ofa movement disorder. 2.Send me AChR and Musk [...] which included preparing to see the patient, [id number] patient care, completing clinical documentation, obtaining and/or reviewing separately obtained history, performing a medically appropriate examination, counseling and educating the pat ient/family/caregiver, and communicating with other HCPs (not separately reported). During our face to face clinical encounter we discussed my concerns neurologically in terms of diagnosis, impact on health and activities of living, and addressed questions. I tried to reassure the patient and also address questions. I explained to the patient to call if any questions, to review res ults, and I want to see them return [...] AB *Canceled* CONSULT TO NEUROLOGY Abby Bernstein APRN.[facility] Neuromuscular Medicine [address] [place] [address]. [phone] Appointment: [phone] 1. This office note has been dictated [...] and wish to discuss any issues directly withme, please feel free to obtain one. 3. [...] your skin, such as red, white, or purple?:No In the past 5 years, what changes, [...] focusing problem? : Moderate [facility] NoteHNO ID: [id number] Author: ABBY BERNSTEIN APRN.WORKFORCE CONSULTANT Service: ? Author Type: Nurse Practitioner Type: Progress Notes Filed: 11/10/2024 13:31 Note Text: [facility] Follow Up Yoli Antunez is a 69 year old male who presents today for follow up regarding [place] PMH: AAA Arthritis CKD state 3 CAD Personal history of smoking ZONIA GOUT HLD HTN Hypothyroid ADA with BIPAP RLS TIA Chart Review: María Pearl APRN.WORKFORCE CONSULTANT IMPRESSION/PLAN: Orthostatic hypotension Tilt table testing indicative of orthostatic hypotension. This would likely explain his symptoms of orthostatic lightheadedness and near syncope. He notes that since the tilt table test, his Benazepril and Diltiazem have been discontinued, but his orthostatic symptoms persist. He was seen by Dr. Vilchis at [facility] who would like to place a [...] a focal sm (more content not included)... [facility]07-10-2025 History of Present illness Narrative* Lalito Miller, DO - 10/29/2024 1:15 PM EDT Subjective Patient ID: Yoli Antunez is a 69 y.o. male who presents for Post-op (2 week evon ) HPI Post right endoscopic septoplasty and right functional endoscopic sinus surgery. States to be doingwell. Review of Systems Patient denies any pain or fever. No longer having any facial discomfort or sinus drainage. No longer taking antibiotics. Allergies as of 10/29/2024 - Reviewed 10/29/2024 Allergen Reaction Noted Vancomycin Anaphylaxis, Itching, and Rash 03/07/2022 Dofetilide Dizziness and Unknown 08/24/2021 Penicillins Unknown and Other 09/12/2000 Past Medical History: Diagnosis Date A-fib ([facility]) 11/2020 [facility] Abdominal aortic aneurysm without rupture Acquired absence of other specified parts of digestive tract 09/22/2024 Aortic root dilatation Biliary acute pancreatitis without necrosis or infection ([facility]) Brain lesion SMALL BRAIN LESION C/W [...] ischemic attack) Vitamin D deficiency Vitreous hemorrhage ([facility]) 08/2017 Macular Pucker Current Outpatient Medications: calcitriol (Rocaltrol) 0.25 MCG capsule, Take 1 capsule (0.25 mcg) by mouth Daily, Disp: 90 capsule, Rfl: 1 calcium carbonate (Os-Atilio) 1250 (500 Ca) MG chewable tablet, Chew 1 tablet in the morning., Disp: ,Rfl: ergocalciferol (Vitamin D-2) 1.25 MG (41856 UT) capsule, Take 1 capsule (1.25 mg) [...] History: Procedure Laterality Date ABLATION A-FIB 11/2020 [facility] ANTERIOR CERVICAL DISCECTOMY W/ FUSION APPENDECTOMY CARDIAC SURGERY 09/2020 [facility] CATARACT EXTRACTION Right 02/2022 CHOLECYSTECTOMY 01/02/2022 CT [...] Watchman FLX Lt atrial appendage closure device WA THYROIDECTOMY SUBSTERNAL CERVICAL APPROACH 09/24/2018 RETINAL DETACHMENT SURGERY Left reattach SEPTOPLASTY 10/07/2024 SINUS SURGERY Right 10/07/2024 THROAT SURGERY 09/13/2022 throat dilation at THYROID SURGERY TOTAL KNEE ARTHROPLASTY Left 05/08/2016 partial TRANSESOPHAGEAL ECHOCARDIOGRAM (CHANTELLE) 04/25/2022 at [place] URETERAL STENT PLACEMENT Left 01/2019 Social History [...] Strain: Low Risk (04/08/2024) Received from [facility] Overall Financial Resource Strain (CARDIA) Difficulty of Paying Living Expenses: Not hard at all Food Insecurity: No Food Insecurity (04/08/2024) Received from [facility] Hunger Vital Sign Within the past 12 months, you worried that your food would run out before you got the money to buymore.: Never true Ran Out of Food in the Last Year: Not on file Transportation Needs: No Transportation Needs (04/08/2024) Received from [facility] Transportation In the past 12 months, has lack of transportation kept you from medical appointments or from getting medications?: No Lack of Transportation (Non-Medical): Not on file Physical Activity: Sufficiently Active (12/17/2023) Exercise Vital Sign Days of Exercise per Week: 7 days Minutes of Exercise per Session: 30 min Stress: Patient Declined (12/17/2023) Citizen Of The [place] of Occupational Health - Occupational Stress Questionnaire Feeling of Stress : Patient declined Social Connections: Moderately Isolated (12/17/2023) Social Connection and Isolation Panel [NHANES] Frequency of Communication with Friends and Family: More than three times a week Frequency of Social Gatherings with Friends and Family: More than three times a week Attends Mu-Ism Services: Never Active Member of Clubs or Organizations: No Attends Club or Organization Meetings: Never Marital Status: Intimate Partner Violence: Unknown (04/08/2024) Received from [facility] Humiliation, Afraid, Rape, and Kick questionnaire Fear of Current or Ex-Partner: No Emotionally Abused: Not on file Physically Abused: Not on file Sexually Abused: Not on file Housing Stability: Low Risk (04/08/2024) Received from [facility] Housing Stability Vital Sign In the last 12 months, was there a time when you were not able to pay the mortgage or rent on time?: No Number of Times Moved in the Last Year: Not on file At any time in the past 12 months, were you homeless or living in a senior care (including now)?: No Objective ENT Physical Exam [...] sinus surgery, the patient is locally anesthetized. Debridement/biopsyof sinus Method: After spraying the patient's nose with anesthetic/decongestant, the endoscope was utilized to visualize the operated cavity. Small amounts of granulation tissue, clot, and sequestra were gradually removed from the cavity. Debridement was carried out until all easily removed material was removed. The maxillary sinuses wide open with no evidence of drainage. Mild inflammation of the mucosa.Nasal septum is much better and continues to [...] area of fistula repair. [facility] [id number] History of Present illness Narrative* Lalito Miller DO - 10/15/2024 2:45 PM EDT Subjective Patient ID: Yoli Antunez [...] 2 or 3 weeks. documented in this [facility]Mer[facility] [id number] Hospital Discharge instructions Patient Education 10/07/2024 16:09:17 Post Op Patient Instructions - FT (CUSTOM) 10/07/2024 14:50:45 [place] 2 (Custom) [place], [place] Lalito Miller DO FUNCTIONAL ENDOSCOPIC SINUS SURGERY INFORMATION SHEET WHY DO I NEED FUNCTIONAL ENDOSCOPIC SINUS SURGERY? Your doctor has recommended functional endoscopic sinus surgery because maximum medical therapy (oysterman antibiotics, mucus thinners and nasal sprays) has failed to eradicate your chronic sinusitis. Review of your sinus CT scan as well as endoscopic examinations of the interior of your nose showspersistent sinus disease and/or anatomical abnormalities that prevent the sinuses from draining. HOW IS FUNCTIONAL ENDOSCOPIC SINUS SURGERY PERFORMED? If your nasal septum is deviated, it will need to be straightened in order to allow the passage of surgical instruments and to give you a good nasal airway. Then, using a highly magnified and brightly lighted telescope, the areas within your nose where thesinuses drain will be surgically opened in order [...] in specialty training to be able to performthis delicate surgical procedure safely. Although extremely rare, [...] require termination of the surgery and placement ofnasal packing. This in turn would require hospitalization. 2.FAILURE TO CURE THE PROBLEM OR RECURRENT DISEASE As in all sinus surgery, it is possible that the sinus disease may not be cured by the operation orthat recurrent disease may occur at any time. This is particularly true for those with severe nasalpolyps. In this case, subsequent medical or surgical therapy may be required. 3.SPINAL FLUID LEAK Surgery on the ethmoid and sphenoid sinuses carries a rare chance in creating a leak of spinal fluid. Should this rare complication occur, it creates a pathway for infection (meningitis). If a spinalfluid leak were to occur, it would be [...] taped under your nose to absorb any drai nage that may come from it. There may be a small amount of packing in each nostril. This will make it difficult to breathe through your nose. In most cases, the packing is removed before you are discharged from the hospital. You will be instructed how to use your pain medication, antibiotic, and anti- swelling medication if it is prescribed. Additionally, you [...] will fatigue easily. You should not drive orattempt important tasks while taking the pain medication. [...] following surgery. Once the drainage slows down, youmay wear the pad only when necessary. 5.If your nose begins to bleed, do not become alarmed. Sit down, put your feet up, and apply a nasal drip pad as well as ice to the back of your neck. If the bleeding does not stop in 5-10 minutes enedina is very brisk, either call the office or report to the nearest Emergency Room where your doctor will be notified. 6.Keep your post-operative appointment. If you do not have one, call the office for an appointment to be seen 7-10 days after your surgery. 7.Use your salt-water nasal spray liberally. It will keep hard crusts from forming in the operativesinus cavities. 8.Call the office with any questions or problems. I have read the above risks and understand them. SignatureDate Reviewed: 05/30 Follow Up Care 09/22/2024 15:48:54 With:Lalito Miller Address: [facility] [address] [place] [phone] Business (1) When: Unknown [facility] 06-18-2025 NoteProgress Note-Physician Patient: YOLI ANTUNEZ JR Age: 69 years Sex: Male : 1955 Associated Diagnoses: None Author: Amos Mena Jr., DO Postoperative Information Postoperative disposition: Postoperative disposition: Home. Optimetrix number: Optimetrix number [id number]. Anesthetic utilized: General. Physical Examination Vital Signs [...] etiology. Permitted patient to (more content not included)...[facility] HospitalComment on above:Result Comment: Electronically Signed By: Amos Mena Jr., DO\Date and Time Signed: 10/07/24 17:02 [id number] NotePatient Education - Text [facility], [place] Lalito Miller, DO FUNCTIONAL ENDOSCOPIC SINUS SURGERY INFORMATION SHEET WHY DO I NEED FUNCTIONAL ENDOSCOPIC SINUS SURGERY? Your doctor has recommended functional endoscopic sinus surgery because maximum medical therapy (oysterman antibiotics, mucus thinners and nasal sprays) has failed to eradicate your chronic sinusitis. Review of your sinus CT scan as well as endoscopic examinations of the interior of your nose showspersistent sinus disease and/or anatomical abnormalities that prevent the sinuses from draining. HOW IS FUNCTIONAL ENDOSCOPIC SINUS SURGERY PERFORMED? If your nasal septum is deviated, it will need to be straightened in order to allow the passage of surgical instruments and to give you a good nasal airway. Then, using a highly magnified and brightly lighted telescope, the areas within your nose where thesinuses drain will be surgically opened in order [...] in specialty training to be able to performthis delicate surgical procedure safely. Although extremely rare, [...] require termination of the surgery and placement ofnasal packing. This in turn would require hospitalization. 2. FAILURE TO CURE THE PROBLEM OR RECURRENT DISEASE As in all sinus surgery, it is possible that the sinus disease may not be cured by the operation orthat recurrent disease may occur at any time. This is particularly true for those with severe nasalpolyps. In this case, subsequent medical or surgical therapy may be required. 3. SPINAL FLUID LEAK Surgery on the ethmoid and sphenoid sinuses carries a rare chance in creating a leak of spinal fluid. Should this rare complication occur, it creates a pathway for infection (meningitis). If a spinalfluid leak were to occur, it would be immediately repaired with a piece of tissue from behind your ear. IV antibiotics would be started and you would be admitted to the hospital for 3-7 days of bed rest, antibiotics, and close observation. Lalito Miller DO Page 2 FUNCTIONAL ENDOSCOPIC SINUS SURGERY [...] taped under your nose to absorb any drai nage that may come from it. There may be a small amount of packing in each nostril. This will make it difficult to breathe through your nose. In most cases, the packing is removed before you are discharged from the hospital. You will be instructed how to use your pain medication, antibiotic, and anti- swelling medication if it is prescribed. Additionally, you will be sent home with two nasal sprays. One spray is nothing more than a weak salt-water solution, which is used as much as needed to rinse the nasal passages. The other is a medication which helps ???unstuff??? your nose and keeps the post- operative bloody oozing to a minimum. The first few days following surgery, it is moran to maintain a low level of activity. You may take short walks and even drive short distances, however you will fatigue easily. You should not drive orattempt important tasks while taking the pain medication. You may eat whatever you like, though generally speaking, a soft diet is b (more content not included)...[facility] 10-07-2024 Evaluation + Plan noteExtracted from:Title:ANES Post-operative Note - GeneralAuthor:Amos Mena Jr., DO GDate:10/07/24 Plan Transfer/Discharge: Transfer/Discharge Discharge when meets criteria ( From PACU to Ambulatory Surgery Unit, and To home ). Extracted from:Title:ANES Pre-operative Note - AdultAuthor:Amos Mena Jr., DO GDate:10/07/24 Plan [place] [employer] Anesthesiologists (ASA) physical status classification: Class III. Anesthetic Preoperative Plan: Anesthesia General.[facility] 06-18-2025 NoteProgress Note-Physician Patient: YOLI ANTUNEZ JR Age: [...] BPH with urinary obstruction / SNOMED CT 1747337055 / Confirmed Gout / SNOMED CT 590109944 / Confirmed Head injury / SNOMED CT 400968611 / Confirmed Headache / SNOMED CT 77057337 / Confirmed History of TIAs / SNOMED CT 9746666272 / Confirmed Hydronephrosis with obstructing calculus / SNOMED CT 16861507 / Confirmed Hypertension / SNOMED CT 4080791327 / Confirmed Hyperthyroidism / SNOMED CT 64062259 / Confirmed Kidney stone / SNOMED CT 117307236 / Confirmed Low back pain / SNOMED CT 064059029 / Confirmed Nocturia / SNOMED CT 894709304 / Confirmed Post-void dribbling / SNOMED CT 717592137 / Confirmed Stage 3 chronic kidney disease / SNOMED CT 8648106652 / Confirmed Resolved: Atrial fibrillation / SNOMED CT 92462505 Resolved: High blood pressure / SNOMED CT 12482980 Resolved: Kidney disease / SNOMED CT 580794027 Histories Past Medical History: Resolved Atrial fibrillation (97716867): Resolved. Kidney disease (437527961): Resolved. High blood pressure (28170838): Resolved. Procedure history: Colonoscopy (023928545). Tonsillectomy (581555329). Knee replacement (393001277). Comments: 01/29/2019 16:14 EDT - Page CORTES [facility] Right/Left Back (068929684). Thyroidectomy (47720609). Knee replacement (654853791). Appendectomy (257096587). Fusion of joint of cervical spine with internal fixation by anterior approach (6731717372). Cardiac Ablation x3 (927055642). Cholecystectomy (27109284). Implantation of cardiac pacemaker (547765564). Detached retina of left eye (7072899165). CEIOL - cataract extraction and implantation of intraocular lens (7764868237). Watchman Implant (68862160). Comments: 09/25/2024 14:40 EDT - Damian GONZALEZ, Polly Peoples 2022 Social History Social & Psychosocial Habits Alcohol 01/19/2020 Use: Current Comment: demetrio - 01/19/2020 15:22 - Radha Perez RN 09/13/2020 Frequency: 1-2 times per month Substance Abuse 01/19/2020 Use: Current Comment: demetrio - 01/19/2020 15:23 - Radha Perez RN Comment: denies - 09/13/2020 09:04 - PAOLA DE ANDA, SHAYLEE Peoples Tobacco 01/29/2019 Tobacco Use: Former smoker, quit more Type: Cigarettes, Cigars 0 (more content not included)...[facility] HospitalComment on above: Result Comment: Electronically Signed By: Amos Mena Jr., DO.dionne\Date and Time Signed: 10/07/24 11:35 [id number] NoteCardiovascular Medicine [facility] SUBJECTIVE Chief Complaint Patient presents with [...] cervical disc disease. Neuro [facility] for further evaluation of his ptosis [...] cardiac catheterization 08/2023, POTS who presented [facility] ED with ongoing chest [...] (CMS/HCC) Essential hypertension Coronary artery disease involving nondalton coronary artery of nondalton heart without angina pectoris Recurrent falls History [...] Diverticulosis of small in (more content not included)...[facility]06[facility] NotePatient is here today for a [...] leg swelling. Respiratory: Positive for shortness of breath.[facility]06-03-[facility] History of Present illness Narrative* Lalito Miller, DO - 09/22/2024 3:15 PM EDT Subjective [...] 09/12/2000 Past Medical History: Diagnosis Date A-fib ([facility]) 11/2020 [facility] Abdominal aortic aneurysm without rupture ([facility]) Acquired absence of other specified parts of digestive tract 09/22/2024 Aortic root dilatation ([facility]) Biliary acute pancreatitis without necrosis or infection Brain lesion SMALL BRAIN LESION C/W MS Cataract COVID-19 GI bleed History of being hospitalized 12/2021 abd pain, lap ivy History of partial knee replacement left [facility] (hearing loss) Hypertension ([facility]) Hyperthyroidism (CMS/HCC) Hypothyroid ([facility]) Kidney stone with mild hydonephrosis Migraine Noninfective gastroenteritis and colitis, unspecified 09/22/2024 Numbness Orthostatic hypotension Paroxysmal atrial fibrillation ([facility]) Peripheral neuropathy Personal history of medical treatment [...] Rfl: 0 ergocalciferol (Vitamin D-2) 1.25 MG (82590 UT) capsule, Take 1 capsule (1.25 mg) [...] History: Procedure Laterality Date ABLATION A-FIB 11/2020 [facility] ANTERIOR CERVICAL DISCECTOMY W/ FUSION APPENDECTOMY CARDIAC SURGERY 09/2020 [facility] CATARACT EXTRACTION Right 02/2022 CHOLECYSTECTOMY 01/02/2022 CT [...] Watchman FLX Lt atrial appendage closure device WA THYROIDECTOMY SUBSTERNAL CERVICAL APPROACH 09/24/2018 RETINAL DETACHMENT SURGERY Left reattach THROAT SURGERY 09/13/2022 throat dilation at THYROID SURGERY TOTAL KNEE ARTHROPLASTY Left 05/08/2016 partial TRANSESOPHAGEAL ECHOCARDIOGRAM ([facility]ELLE) 04/25/2022 at [facility] URETERAL STENT PLACEMENT Left 01/2019 Social History [...] Strain: Low Risk (04/08/2024) [facility] Overall Financial Resource Strain (CARDIA) Difficulty of Paying Living Expenses: Not hard at all Food Insecurity: No Food Insecurity (04/08/2024) Received from [facility] Hunger Vital Sign Within the past 12 months, you worried that your food would run out before you got the money to buymore.: Never true Ran Out of Food in the Last Year: Not on file Transportation Needs: No Transportation Needs (04/08/2024) Received from [facility] Transportation In the past 12 months, has lack of transportation kept you from medical appointments or from getting medications?: No Lack of Transportation (Non-Medical): Not on file Physical Activity: Sufficiently Active (12/17/2023) Exercise Vital Sign Days of Exercise per Week: 7 days Minutes of Exercise per Session: 30 min Stress: Patient Declined (12/17/2023) Citizen Of [place] of Occupational Health - Occupational Stress Questionnaire Feeling of Stress : Patient declined Social Connections: Moderately Isolated (12/17/2023) Social Connection and Isolation Panel [NHANES] Frequency of Communication with Friends and Family: More than three times a week Frequency of Social Gatherings with Friends and Family: More than three times a week Attends Mu-Ism Services: Never Active Member of Clubs or Organizations: No Attends Club or Organization Meetings: Never Marital Status: Intimate Partner Violence: Unknown (04/08/2024) Received from [facility] Humiliation, Afraid, Rape, and Kick questionnaire Fear of Current or Ex-Partner: No Emotionally Abused: Not on file Physically Abused: Not on file Sexually Abused: Not on file Housing Stability: Low Risk (04/08/2024) Received from [facility] Housing Stability Vital Sign In the last 12 months, was there a time when you were not able to pay the mortgage or rent on time?: No Number of Times Moved in the Last Year: Not on file At any time in the past 12 months, were you homeless or living in a senior care (including now)?: No Objective ENT Physical Exam [...] disease, serous disability,and . documented in this encounterMercy Hospital South, formerly [facility] [id number] History of Present illness Narrative* Lalito Miller DO - 09/08/2024 2:30 PM EDT Subjective [...] Medical History: Diagnosis Date A-fib (CMS/HCC) 11/2020 [facility] Abdominal aortic aneurysm without rupture (CMS/HCC) [...] Disp: ,Rfl: ergocalciferol (Vitamin D-2) 1.25 MG (94214 UT) capsule, Take 1 capsule (1.25 mg) [...] History: Procedure Laterality Date ABLATION A-FIB 11/2020 [facility] ANTERIOR CERVICAL DISCECTOMY W/ FUSION APPENDECTOMY CARDIAC SURGERY 09/2020 [facility] CATARACT EXTRACTION Right 02/2022 CHOLECYSTECTOMY 01/02/2022 CT ANGIO HEAD 03/05/2023 CT ANGIO HEAD 03/05/[address]23 CT ANGIOGRAM ABDOMEN 07/06/2021 CT ANGIOGRAM ABDOMEN 07/06/2021 CT ANGIOGRAM ABDOMEN PELVIS 08/24/2021 CT ANGIOGRAM ABDOMEN PELVIS 08/24/2021 CT ANGIOGRAM ABDOMEN PELVIS 09/16/2021 CT ANGIOGRAM ABDOMEN PELVIS 09/16/2021 CT ANGIOGRAM CHEST 07/06/2021 CT ANGIOGRAM CHEST [facility] DATA LEGACY CT ANGIOGRAM HEART CORONARY 08/30/2020 [...] Watchman FLX Lt atrial appendage closure device WA THYROIDECTOMY SUBSTERNAL CERVICAL APPROACH 09/24/2018 RETINAL DETACHMENT SURGERY Left reattach THROAT SURGERY 09/13/2022 throat dilation at THYROID SURGERY TOTAL KNEE ARTHROPLASTY Left 05/08/2016 partial TRANSESOPHAGEAL ECHOCARDIOGRAM (CHANTELLE) 04/25/2022 at [place] [facility] ST[facility]ACEMENT Left 01/2019 Social History [...] Strain: Low Risk (04/08/2024) Received from [facility] Overall Financial Resource Strain (CARDIA) Difficulty of Paying Living Expenses: Not hard at all Food Insecurity: No Food Insecurity (04/08/2024) Received from [facility] Hunger Vital Sign Within the past 12 months, you worried that your food would run out before you got the money to buymore.: Never true Ran Out of Food in the Last Year: Not on file Transportation Needs: No Transportation Needs (04/08/2024) Received from [facility] Transportation In the past 12 months, has lack of transportation kept you from medical appointments or from getting medications?: No Lack of Transportation (Non-Medical): Not on file Physical Activity: Sufficiently Active (12/17/2023) Exercise Vital Sign Days of Exercise per Week: 7 days Minutes of Exercise per Session: 30 min Stress: Patient Declined (12/17/2023) Citizen Of [place] of Occupational Health - Occupational Stress Questionnaire Feeling of Stress : Patient declined Social Connections: Moderately Isolated (12/17/2023) Social Connection and Isolation Panel [NHANES] Frequency of Communication with Friends and Family: More than three times a week Frequency of Social Gatherings with Friends and Family: More than three times a week Attends Mu-Ism Services: Never Active Member of Clubs or Organizations: No Attends Club or Organization Meetings: Never Marital Status: Intimate Partner Violence: Unknown (04/08/2024) Received from [facility] Humiliation, Afraid, Rape, and Kick questionnaire Fear of Current or Ex-Partner: No Emotionally Abused: Not on file Physically Abused: Not on file Sexually Abused: Not on file Housing Stability: Low Risk (04/08/2024) Received from [facility] Housing Stability Vital Sign In the last 12 months, was there a time when you were not able to pay the mortgage or rent on time?: No Number of Times Moved in the Last Year: Not on file At any time in the past 12 months, were you homeless or living in a senior care (including now)?: No Objective ENT Physical Exam [...] 2 weeks for recheck. documented in this encounterMercy Hospital South, formerly [facility] [id number] History of Present illness Narrative* Shivani Adams NP - 09/02/2024 3:00 PM EDT Images from [...] with ENT as scheduled documented in this encounterMercy Hospital South, formerly St. [facility] [id number] History of Present illness Narrative* Radha Burris MD - 08/21/2024 2:20 PM EDT Images from the original note were not included. Yoli Antunez is a 69 y.o. male presents with chief complaint of Dental Injury (Patient had tooth removed two weeks ago Saturday at [facility] for tooth removal but the root traveled to sinus. Sx of right ear pain, and thick yellow mucus that started the next day. Has been taking ibuprofen 600mg 3-4 times daily. [facility] sent a couple of referrals to ENT, [...] is being provided by a neurologist at [facility] due to intermittent eye issues. Further evaluation at [place] has been recommended by the neurologist. Vision [...] Medical History: Diagnosis Date A-fib (CMS/HCC) 11/2020 [facility] Abdominal aortic aneurysm without rupture ([facility]/HCC) Aortic root dilatation ([facility]/HCC) Biliary acute pancreatitis without necrosis or infection Brain lesion SMALL BRAIN LESION C/W MS Cataract COVID-19 GI bleed History of being hospitalized 12/2021 abd pain, lap ivy History of partial knee replacement left Hypertension ([facility]/HCC) Hyperthyroidism ([facility]/HCC) Hypothyroid ([facility]/HCC) Kidney stone with mild hydonephrosis Orthostatic hypotension Paroxysmal atrial fibrillation ([facility]/HCC) Personal history of medical treatment BORDERLINE MS, [...] History: Procedure Laterality Date ABLATION A-FIB 11/2020 [facility] APPENDECTOMY CARDIAC SURGERY 09/2020 [facility] CATARACT EXTRACTION Right 02/2022 CHOLECYSTECTOMY 01/02/2022 CT [...] Watchman FLX Lt atrial appendage closure device WA THYROIDECTOMY SUBSTERNAL CERVICAL APPROACH 09/24/2018 RETINAL DETACHMENT SURGERY Left reattach THROAT SURGERY 09/13/2022 throat dilation at THYROID SURGERY TOTAL KNEE ARTHROPLASTY Left 05/08/2016 partial TRANSESOPHAGEAL ECHOCARDIOGRAM (CHANTELLE) 04/25/2022 at [facility] URETERAL STENT PLACEMENT Left 01/2019 REVIEW OF [...] to follow up with the specialist in [place] for further evaluation. - Referral to [place] specialist has been made for further assessment. Assessment/Plan Problem List Items Addressed This Visit None Visit Diagnoses Dental infection - Primary Relevant Medications clindamycin (Cleocin) 300 MG capsule Other Relevant Orders CT SINUS WO IV CONTRAST (Completed) No follow-ups on file. documented in this encounterMercy Hospital South, formerly St. [facility] [id number] History of Present illness Narrative* Shashi Pina DO - 08/19/2024 9:15 AM EDT Images [...] Medical History: Diagnosis Date A-fib (CMS/HCC) 11/2020 [facility] Abdominal aortic aneurysm without rupture (CMS/HCC) [...] History: Procedure Laterality Date ABLATION A-FIB 11/2020 [facility] APPENDECTOMY CARDIAC SURGERY 09/2020 [facility] CATARACT EXTRACTION Right 02/2022 CHOLECYSTECTOMY 01/02/2022 CT [...] Watchman FLX Lt atrial appendage closure device WA THYROIDECTOMY SUBSTERNAL CERVICAL APPROACH 09/24/2018 RETINAL DETACHMENT SURGERY Left reattach THROAT SURGERY 09/13/2022 throat dilation at TOTAL KNEE ARTHROPLASTY Left 05/08/2016 partial TRANSESOPHAGEAL ECHOCARDIOGRAM (CHANTELLE) 04/25/2022 at [facility] URETERAL STENT PLACEMENT Left 01/2019 Family History [...] , wrist extensors , wrist flexor , automation and controls instructor strength 5/5. LUE Strength deltoid , biceps , triceps , wrist extensors , wrist flexor , automation and controls instructor strength 5/5. RLE Strength illopsoas, quadriceps, tibialis [...] reflex 2+ . Gonzales's sign negative. Coordination: Owbvze-fk-byng testing and rapid alternating movements are normal [...] recommended. I have reviewed extensive notations from [facility] in January 2023 which detailed the [...] patient to Dr. Bhavesh Huitron in at [facility] to evaluate further. Signs and symptoms [...] of pacemaker implantation with Dr. Vilchis in [place]. Certainly close follow up with Cardiology team in [facility] are of the utmost importance. Plan: [...] Focality: facial aura: Yes documented in this encounterMercy Hospital South, formerly St. [facility] [id number] History of Present illness Narrative* Latoya Redding [...] day the HPI 06/2024 Patient sent from [facility] had him better for low PTH 10 [...] Medical History: Diagnosis Date A-fib (CMS/HCC) 11/2020 [facility] Abdominal aortic aneurysm without rupture ([facility]/HCC) Aortic root dilatation ([facility]/HCC) Biliary acute pancreatitis without necrosis or infection Brain lesion SMALL BRAIN LESION C/W MS Cataract COVID-19 GI bleed History of being hospitalized 12/2021 abd pain, lap ivy History of partial knee replacement left Hypothyroid ([facility]/HCC) Kidney stone with mild hydonephrosis Orthostatic hypotension Paroxysmal atrial fibrillation ([facility]/HCC) Personal history of medical treatment BORDERLINE MS, MG, ALS Vitreous hemorrhage ([facility]/HCC) 08/2017 Macular Pucker Past Surgical History: Procedure Laterality Date ABLATION A-FIB 11/2020 [facility] APPENDECTOMY CARDIAC SURGERY 09/2020 [facility] CATARACT EXTRACTION Right 02/2022 CHOLECYSTECTOMY 01/02/2022 CT ANGIO HEAD 03/05/2023 CT ANGIO HEAD 03/05/2023 CT ANGIOGRAM ABDOMEN 07/06/2021 CT ANGIOGRAM ABDOMEN 07/06/2021 CT ANGIOGRAM ABDOMEN PELVIS 08/24/2021 CT ANGIOGRAM ABDOMEN PELVIS 08/24/2021 CT ANGIOGRAM ABDOMEN PELVIS 09/16/2021 CT ANGIOGRAM ABDOMEN PELVIS 09/16/2021 CT ANGIOGRAM CHEST 07/06/2021 CT [facility] HEART CORONARY 08/30/2020 CT ANGIOGRAM [...] Watchman FLX Lt atrial appendage closure device WA THYROIDECTOMY SUBSTERNAL CERVICAL APPROACH 09/24/2018 RETINAL DETACHMENT SURGERY Left reattach THROAT SURGERY 09/13/2022 throat dilation at TOTAL KNEE ARTHROPLASTY Left 05/08/2016 partial TRANSESOPHAGEAL ECHOCARDIOGRAM (CHANTELLE) 04/25/2022 at [facility] URETERAL STENT PLACEMENT Left 01/2019 REVIEW OF [...] Daily - ergocalciferol (Vitamin D-2) 1.25 MG (06387 UT) capsule; Take 1 capsule (1.25 mg) [...] 6 months (around 02/09/2025). documented in this encounterMercy Hospital South, formerly St. [facility] [id number] NotePlaced in MRI mode per REP GetPromotd, MRI mode expires 07/28/2024. 90 DOO. Patient tolerated procedure well. Post MRI scan assisted patient to dressing room. Pt has a Biotronik Edora 8 DR-T pacemaker model 923571- RA lead model [id number]- RV lead model [id number]- conditional for 1.5 and 3T- normal op mode- whole body 2 W/kg- info in Epic- must be in MRI mode prior to scan- sees [facility] cardiology- LK 06/07/21 pt has a Watchman FLX device- [...] pt states his loop recorder was removed- 06[facility]/24[facility] History of Present illness Narrative* Latoya Redding MD - 07/06/2024 10:00 AM EDT Yoli Antunez is a 69 y.o. male [facility] Eleonora Amita,* presents with chief complaint of Thyroid Problem (PARATHYROID NEW REF/LAB) HPI: HPI 06/2024 Patient sent from [facility] had him better for low PTH 10 [...] Medical History: Diagnosis Date A-fib (CMS/HCC) 11/2020 [facility] Abdominal aortic aneurysm without rupture ([facility]/HCC) Aortic root dilatation (CMS/HCC) Biliary [...] History: Procedure Laterality Date ABLATION A-FIB 11/2020 [facility] APPENDECTOMY CARDIAC SURGERY 09/2020 [facility] CATARACT EXTRACTION Right 02/2022 CHOLECYSTECTOMY 01/02/2022 CT [...] Watchman FLX Lt atrial appendage closure device WA THYROIDECTOMY SUBSTERNAL CERVICAL APPROACH 09/24/2018 RETINAL DETACHMENT SURGERY Left reattach THROAT SURGERY 09/13/2022 throat dilation at TOTAL KNEE ARTHROPLASTY Left 05/08/2016 partial TRANSESOPHAGEAL ECHOCARDIOGRAM (CHANTELLE) 04/25/2022 at [facility] URETERAL STENT PLACEMENT Left 01/2019 REVIEW OF [...] 6 weeks (around 08/17/2024). documented in this encounterMercy Hospital South, formerly St. [facility] [id number] History of Present illness Narrative* Shashi Pina, [...] Medical History: Diagnosis Date A-fib (CMS/HCC) 11/2020 [facility] Abdominal aortic aneurysm without rupture ([facility]/HCC) Aortic root dilatation ([facility]/HCC) Biliary acute pancreatitis without necrosis or infection Brain lesion SMALL BRAIN LESION C/W MS Cataract COVID-19 GI bleed History of being hospitalized 12/2021 abd pain, lap ivy History of partial knee replacement left Hypothyroid ([facility]/HCC) Kidney stone with mild hydonephrosis Orthostatic hypotension Paroxysmal atrial fibrillation ([facility]/HCC) Personal history of medical treatment BORDERLINE MS, MG, ALS Vitreous hemorrhage ([facility]) 08/2017 Macular Pucker Past Surgical History: Procedure Laterality Date ABLATION A-FIB 11/2020 [facility] APPENDECTOMY CARDIAC SURGERY 09/2020 [facility] CATARACT EXTRACTION Right 02/2022 CHOLECYSTECTOMY 01/02/2022 CT [...] Watchman FLX Lt atrial appendage closure device WA THYROIDECTOMY SUBSTERNAL CERVICAL APPROACH 09/24/2018 RETINAL DETACHMENT SURGERY Left reattach THROAT SURGERY 09/13/2022 throat dilation at TOTAL KNEE ARTHROPLASTY Left 05/08/2016 partial TRANSESOPHAGEAL ECHOCARDIOGRAM (CHANTELLE) 04/25/2022 at CO URETERAL STENT PLACEMENT Left 01/2019 Family History [...] , wrist extensors , wrist flexor , automation and controls instructor strength 5/5. LUE Strength deltoid , biceps , triceps , wrist extensors , wrist flexor , automation and controls instructor strength 5/5. RLE Strength illopsoas, quadriceps, tibialis [...] reflex 2+ . Gonzales's sign negative. Coordination: Avizyq-zp-wxtj testing and rapid alternating movements are normal [...] recommended. I have reviewed extensive notations from [facility] in January 2023 which detailed the [...] of pacemaker implantation with Dr. Vilchis in [place]. Certainly close follow up with Cardiology team in [facility] are of the utmost importance. Plan: [...] for tertiary care center for opinion by [facility] neuromuscular institute given the complex cardiac history and concern for seronegative myasthenia gravis. Certainly high-degree medical decision-making with need for extensive investigation in ongoing discussion investigation about potentially life- threatening issue such as myasthenic crisis. Pt has been fully educated on their diagnosis, lab results, treatment options, follow up plan, return instructions, and discussion of mental health issues documented in this encounterMercy Hospital South, formerly St. [facility]'s Medical [id number] History of Present illness Narrative* Eleonora Leo [...] A few weeks prior, he consulted an desktop publishing specialist who conducted an ice test, which yielded positive results. Subsequent preliminary blood work was negative. He has previously sought neurological care at the [facility]. He has a history of smoking but does not recall undergoing any lung screening tests. He is aware ofsome calcification on the left side of his lungs but does not currently follow up with a bottle booth attendant. SOCIAL HISTORY The patient used to smoke [...] Medical History: Diagnosis Date A-fib (CMS/HCC) 11/2020 [facility] Abdominal aortic aneurysm without rupture ([facility]) Aortic root dilatation ([facility]) Biliary acute pancreatitis without necrosis or infection Brain lesion SMALL BRAIN LESION C/W MS Cataract COVID-19 GI bleed History of being hospitalized 12/2021 abd pain, lap ivy History of partial knee replacement left Hypothyroid ([facility]/HCC) Kidney stone with mild hydonephrosis Orthostatic hypotension Paroxysmal atrial fibrillation ([facility]/HCC) Personal history of medical treatment BORDERLINE MS, MG, ALS Vitreous hemorrhage ([facility]) 08/2017 Macular Pucker Social History Tobacco Use [...] History: Procedure Laterality Date ABLATION A-FIB 11/2020 [facility] APPENDECTOMY CARDIAC SURGERY 09/2020 [facility] CATARACT EXTRACTION Right 02/2022 CHOLECYSTECTOMY 01/02/2022 CT ANGIO HEAD 03/05/2023 CT ANGIO HEAD 03/05/2023 CT ANGIOGRAM ABDOMEN 07/06/2021 CT ANGIOGRAM ABDOMEN 07/06/2021 CT ANGIOGRAM ABDOMEN PELVIS 08/24/2021 CT ANGIOGRAM ABDOMEN PELVIS 08/24/2021 CT ANGIOGRAM ABDOMEN PELVIS 09/16/2021 CT ANGIOGRAM ABDOMEN PELVIS 09/16/2021 CT ANGIOGRAM CHEST 07/06/2021 CT ANGIOGRAM CHEST [facility] DATA LEGACY CT ANGIOGRAM HEART CORONARY [...] Watchman FLX Lt atrial appendage closure device WA THYROIDECTOMY SUBSTERNAL CERVICAL APPROACH 09/24/2018 RETINAL DETACHMENT SURGERY Left reattach THROAT SURGERY 09/13/2022 throat dilation at TOTAL KNEE ARTHROPLASTY Left 05/08/2016 partial TRANSESOPHAGEAL ECHOCARDIOGRAM (CHANTELLE) 04/25/2022 at CO URETERAL STENT PLACEMENT Left 01/2019 REVIEW OF [...] tenderness or frontal sinus tenderness. Mouth/Throat: Lips: [place]. Mouth: Mucous membranes are moist. Pharynx: Oropharynx [...] Follows with cardiology. Coronary artery disease involving nondalton heart, unspecified vessel or lesion type, unspecified [...] obstruction Stage 3a chronic kidney disease (HCC) ([facility]) Chronic gouty arthritis Vitamin D deficiency Chronic migraine without aura, with intractable migraine, so stated, with status migrainosus ([facility]) Meniere's disease, unspecified laterality Acquired ptosis of right eyelid - Ambulatory referral to Neurology; Future Acquired hypothyroidism ([facility]/HCC) - TSH W/REFLEX TO FT4; Future History of smoking - CT lung screening low dose; Future Bronchiectasis, uncomplicated ([facility]) Chronic combined systolic (congestive) and diastolic (congestive) heart failure ([facility]) ADA (obstructive sleep apnea) Medicare annual wellness visit, subsequent Discussed height, weight and BMI. Encouraged healthy diet and regular exercise. Discussed vaccines and encouraged yearly flu shot. Annual eye and dental exam. Vaccines and cancer screens reviewed forcompleteness. Screen labs as needed. Assessed needs for tools in the home for independence. Living will and durable power of transactional attorney reviewed. Updated patient problem list and reviewed all current medications with patient. Given time to ask questions. Assessment & Plan 1. Suspected myasthenia gravis. The patient reports symptoms including eyelid drooping and difficulty keeping the eye open, which occurs two to three times a week and started about 1.5 to 2 months ago. An ice test performed by the desktop publishing specialist was positive, but preliminary blood work was negative. A referral to [facility] in [place] will be initiated for further evaluation. 2. [...] No follow-ups on file. documented in this encounterNOMS [id number] Telephone encounter Note* Telephone Encounter - Riley Coleman - 05/28/2024 11:49 AM EST Lab Results given [facility] [id number] Miscellaneous Notes* Telephone Encounter - Riley Coleman - 05/28/2024 11:49 AM EST Lab Results given * Telephone Encounter - Elo Cruz MA - 05/27/2024 8:57 AM EST ----- Message from Dr. Radha Burris sent at 05/26/2024 10:06 PM EST ----- His recent testing requested by the specialist is negative. documented in this encounterMercy Hospital South, formerly [facility]. [facility] [id number] Telephone encounter Note* Telephone Encounter - Elo Cruz MA - 05/27/2024 8:57 AM EST ----- Message from Dr. Radha Burris sent at 05/26/2024 10:06 PM EST ----- His recent testing requested by the specialist is negative. [facility] [id number] NoteCardiovascular Medicine [facility] SUBJECTIVE Chief Complaint Patient presents with Coronary Artery Disease Atrial Fibrillation Chest Pain Yoli Antunez . is a 68 y.o. male here for [...] cardiac catheterization 08/2023, POTS who presented to [facility] ED with ongoing chest [...] week. Patient Active Problem List Diagnosis A-fib (CMS/[facility]) Essential hypertension Coronary artery disease involving nondalton coronary artery of nondalton heart without angina pectoris Recurrent falls History [...] replacement Aphasia Bilateral pa (more content not included)...[facility] 04-28-2024 NotePatient here for follow up [facility]. He was seeing Dr. Vilchis in the [...] light-headedness. All other systems reviewed and are negative.[facility] 04-10-2024 NoteHospital Medicine Discharge Summary Final [...] Chest pain, unspecified type [R07.9] Hospital course: Yloi Antunez Jr. is a 68 y.o. male for primary hypertension, atrial fibrillation on sotalol status post watchman not on anticoagulation, sinus node dysfunction status post dual-chamber permanent pacemaker, coronary artery disease status post cardiac catheterization 08/2023, POTS who presented to [facility] ED with ongoing chest [...] Your Medications These medications were sent to [facility] [address] [place] [address] [address] [place] [address] [address] isosorbide mononitrate ER 30 mg 24 hr [...] symmetric air entry. Abdomen: (more content not included)...[facility] 04-10-2024 NoteHospital Medicine Discharge Summary Final [...] cardiac catheterization 08/2023, POTS who presented to [facility] ED with ongoing chest [...] Invasive or Diagnostic Procedures Done During Admission: Hussainiscan stress test Consultations During Admission: Cardiology Dear [...] Your Medications These medications were sent to [facility] [address] [place] [address] [place] [address] [address] isosorbide mononitrate ER 30 mg 24 hr [...] symmetric air entry. Abdomen: (more content not included)...[facility] 04-10-2024 Note Attestation signed by Erika [...] Teaching Physician's Revisions: none Erika Mesa MD [place] [facility] Cardiology Progress Note Subjective Subjective: Patient [...] tablet 81 mg, 81 mg, oral, Daily, Candie Hutchinson MD, 81 mg at 04/10/24 1042 [...] millicurie, 10 millicurie, intravenous, Once in imaging, Candie Hutchinson MD, 10 millicurie at 04/10/24 0746 kit prep Tc 99m-sestamibi no.1 (Cardiolite) radio-isotope injection 30 millicurie, 30 millicurie, intravenous, Once in imaging, Candie Hutchinson MD, 30 millicurie at 04/10/24 0935 [...] Value Ventricular Rate 79 Atrial Rate 79 WA Interval 246 QRS DURATION 76 QT Interval 384 QTC CALCULATION(BAZETT) 440 R-[place] 61 T Wave [place] 224 Impression Atrial-paced rhythm with prolonged AV [...] Bubble Study Result Date: 04/09/2024 1 1 [facility] Heart Station [address] [place] [address] [phone] (fax) Echocardiogram[facility] [facility] Name: YOLI ANTUNEZ Study Date: 04/09/2024 11:49 AM B/P: 123 mmHg/92 mmHg HR: Date of : 1955 Location: [facility] Height: 78 in. Age: 68 year(s) Patient Room: [facility] Weight: 248 lb. Gender: Male Patient Status (more content not included)...[facility] 04-09-2024 NoteHospital Medicine Daily Progress Note - 04/09/2024 11:51 AM; Room: [facility]/3109- Admission: 04/08/2024 3:17 PM; Length of stay: 0 days THE HOSPITALIST TEAM PREFERS TO USE [id number] CHAT FOR NON-URGENT COMMUNICATION 7AM-7PM. IF I DO NOT RESPOND WITHIN 20 MINUTES OR URGENT MATTERS, PLEASE CALL THROUGH THE RELATIONSHIP BANKER. FROM 7PM-7AM, PLEASE PAGE [phone](COVR). Code Status: Full Code Barriers to Discharge: [...] pain Active Problems: EMELIA (acute kidney injury) ([facility]) Abnormal ECG Assessment and Plan chest pain, [...] LDL 144 11/05/2019 No results found for: [id number] , IRON , TIBC , C3 , [...] Disposition: Home or Self Care () Signed Candie Hutchinson MD Hospital Medicine 04/09/2024 11:51 [facility]12-18-2024 NoteHospital Medicine History and Physical 04/09/2024 2:39 AM THE HOSPITALIST TEAM PREFERS TO USE Home[employer] FOR NON-URGENT COMMUNICATION 7AM-7PM. IF I DO NOT RESPOND WITHIN 20 MINUTES OR URGENT MATTERS, PLEASE CALL THROUGH THE RELATIONSHIP BANKER. FROM 7PM-7AM, PLEASE PAGE [phone](COVR). Chief Complaint Chief Complaint Patient presents with Chest Pain Shortness of Breath History of Present Illness Yoli Antunez Jr. is an 68 y.o. male who came from director patient with past medical history including, but not limited to HTN, CAD, recurrent falls, history of TIA, loop recorder, headache, ADA, multifocal atrial tachycardia, BPH without obstruction, cardiac radiofrequency ablation, pacemaker, syncope or collapse, AAA without rupture, POTS, A-fib, SSS, and A-fib with RVR. Patient presented to [facility] ED with c/o chest [...] at times. He reports he saw his director patient today who performed an EKG which showed acute lead inversions prompting director patient to send him into the ED. Patient [...] negative. BNP unremarkable 66. Patient admitted to OR with cardiology consult for further evaluation and [...] pain Active Problems: EMELIA (acute kidney injury) ([facility]) Abnormal ECG Assessment and Plan Chest pain [...] and PT, PT/INR, APTT (more content not included)...[facility]12-18-2024 NoteSY[facility] Reason [...] angina and have sent him to the [facility] emergency room for further evaluation. I called the emergency room physician and spoke with them personally and also called the copyholder on the inPatient's service and spoke with [...] MR HEAD ANGIO WO IV CONTRAST 07/09/[address] [facility] MR IMAGING MR NECK ANGIO WO IV CONTRAST 07/09/2022 MR NECK ANGIO WO IV CONTRAST 07/09/[address] [facility] MR IMAGING NECK SURGERY THYROIDECTOMY SH: Social Determinants of Health Tobacco Use: Medium Risk (04/08/2024) Patient History Smoking Tobacco Use: Former Smokeless Tobacco Use: Former Passive Exposure: Not on file Alcohol Use: Not At Risk (12/17/2023) Received from [facility] AUDIT-C Frequency of Alcohol Consumption: Monthly or [...] Physical Activity: Sufficiently Active (12/17/2023) Received from [facility] Exercise Vital Sign Days of Exercise per Week: 7 days Minutes of Exercise per Session: 30 min Stress: Patient Declined (12/17/2023) Received from [facility] [place] of Occupational Health - Occupational Stress Questionnaire Feeling of Stress : Patient declined Social Connections: Moderately Isolated (12/17/2023) Received from [facility] Social Connection and Isolation Panel [NHANES] Frequency of Communication with Friends and Family: More than three times a week Frequency of Social Gatherings with Friends and Family: More than three times a week Attends Mu-Ism Services: Never Active Member of Clubs or Organizations: No Attends Club or Organization Meetings: Never Marital Status: Intimate Partner Violence: Not At Risk (01/27/2024) Humiliation, Afraid, Rape, and Kick questionnaire Fear of Current or Ex-Partner: No Emotionally Abused: No Physically Abused: No Sexually Abused: No Depression: Not at risk (02/06/2024) Received from [facility] PHQ-2 Patient Health Questionnaire-2 Score: 0 Housing Stability: Low Risk (01/27/2024) Housing Stability Vital Sign Unable to Pay for Housing in the Last Year: Not on file Number of Places Lived in the Last Year: Not on file Unstable Housing in the Last Year: No Utilities: Not At Risk (01/27/2024) [facility] Utilities Threatened with loss of utilities: No Health Literacy: Adequate Health Literacy (12/17/2023) Received from [facility] B1300 Health Literacy Frequency of need for help with medical instructions: Never Meds: No current facility-administered medications on file prior to visit. (more content not included)...[facility]11-20-2024 Note [facility] [...] I spent more than 45 minutes in qhsy-ba-dqsy patient counseling and therapeutic decision making with [...] MR HEAD ANGIO WO IV CONTRAST 07/09/[address] [facility] MR IMAGING MR NECK ANGIO WO IV CONTRAST 07/09/2022 MR NECK ANGIO WO IV CONTRAST 07/09/[address] [facility] MR IMAGING NECK SURGERY THYROIDECTOMY SH: Social Determinants of Health Tobacco Use: Medium Risk (02/06/2024) Received from [facility] Patient History Smoking Tobacco Use: Former Smokeless Tobacco Use: Never Passive Exposure: Not on file Alcohol Use: Not At Risk (12/17/2023) Received from [facility] AUDIT-C Frequency of Alcohol Consumption: Monthly or [...] Physical Activity: Sufficiently Active (12/17/2023) Received from [facility] Exercise Vital Sign Days of Exercise per Week: 7 days Minutes of Exercise per Session: 30 min Stress: Patient Declined (12/17/2023) Received from [facility] [place] of Occupational Health - Occupational Stress Questionnaire Feeling of Stress : Patient declined Social Connections: Moderately Isolated (12/17/2023) Received from [facility] Social Connection and Isolation Panel [NHANES] Frequency of Communication with Friends and Family: More than three times a week Frequency of Social Gatherings with Friends and Family: More than three times a week Attends Mu-Ism Services: Never Active Member of Clubs or Organizations: No Attends Club or Organization Meetings: Never Marital Status: Intimate Partner Violence: Not At Risk (01/27/2024) Humiliation, Afraid, Rape, and Kick questionnaire Fear of Current or Ex-Partner: No Emotionally Abused: No Physically Abused: No Sexually Abused: No Depression: Not at risk (02/06/2024) Received from [facility], [facility] PHQ-2 Patient Health Questionnaire-[address]: [address] (more content not included)...[facility] 02-10-2024 Telephone encounter Note* Telephone Encounter - Riley [place] - 02/10/2024 11:10 AM EDT Jamil was in last week for rash - was told if not better to call the office . It isnt any better -asking if something else can be called in [facility] [id number] Miscellaneous Notes* Telephone Encounter - Riley [place] - 02/10/2024 11:10 AM EDT Jamil was in last week for rash - was told if not better to call the office . It isnt any better -asking if something else can be called [facility] [employer] documented in this encounterMer[facility] [id number] History of Present illness Narrative* Radha Burris [...] couple months. Rash has stayed the same. [facility] on 01/29 patient went in for chest pain dueto afib but chest pain has stopped since then. ) HPI: HPI History of Present Illness The patient presents for evaluation of multiple medical concerns. He experienced chest pain, initially thought to be a recurrence of atrial fibrillation (AFib). However, his director patient confirmed that he is no longer in [...] treatment. Three referrals were sent to the [facility], but they claim to have lost the [...] PLAN: Assessment & Plan 1. Anxiety. The director patient confirmed that the recent chest pain was [...] atrial fibrillation (CMS/HCC) Now back in sinus. Pst Specialist wants the anxiety treated. Discussed in detail with him today. Other Visit Diagnoses Dermatitis Relevant Medications mometasone (Elocon) 0.1 % ointment Family History Problem Relation Name Age of Onset Lung cancer Mother Hypertension Mother Stroke Mother Aneurysm Father Lung cancer Father Hypertension Father No Known Problems Brother Flowsheet Row Patient Outreach from 10/14/[facility] with Radha Taylor RN Hospital Information ED, Hospital or Senior Care Facility Discharge? ED Patient has been contacted within 1 week of being seen in the ED No Have two attempts been made to contact the patient within one week of being seen in the ED? No Discharge Date 10/05/23 Discharged To: Home Setting Discharge Hospital [facility] Engagement Call Start Time 1200 Medications [...] Up Wrap Up Additional Comments Pt to [facility] 10/05/23. He presented with left index finger infection - he drilled a screw into finger. He was eval, treated and dc to home. DX: Cellulitis and Chest pain. New prescription given: Doxycycline. Call End Time 1206 No follow-ups on file. documented in this encounterMer[facility], [facility] [id number] History of Present illness Narrative* Sofia Vigil NP - 01/20/2024 4:00 PM EDT Images from [...] Take medications as prescribed. documented in this encounterMercy [facility], formerly [facility]. [facility] [id number] History of Present illness Narrative* Shivani Adams [...] Thoracic aortic ectasia (CMS/HCC) documented in this encounterMercy Hospital [facility], formerly [facility]. [facility] [id number] Evaluation note* Type Assessment Date assessment Other cervical disc degeneration , unspecified cervical region [facility] [email or web address] Work Phone: [phone] History of Present illness Narrative* Encounter Date [...] back for a follow up from his director patient. New Problem Spine-cervical Locat ion: Pain diagram [...] presents to review cervical spine 06/30/21 @ [facility]. New Problem Spine-cervical Locat ion: Bilateral cervical [...] well up until a few months ago. [place] [facility] Work Phone: 1(396) 166-417609-03-2024 History of Present illness Narrative* Radha Burris [...] medication, he has not found relief. His director patient, Dr. Vilchis, is uncertain if these symptoms [...] is seeking a referral to a new immigration lawyer as he was dissatisfied with his previous [...] addition of sildenafil or tadalafil by his director patient, it is prudent not to alter his [...] referral will be made to a new immigration lawyer for further evaluation and management of his diarrhea. He has tried multiple medications, including cholestyramine and Imodium, without significant relief. Assessment/Plan Problem List Items Addressed This Visit Angina at rest (CMS/HCC) Other Visit Diagnoses Diarrhea, unspecified type - Primary Relevant Orders Ambulatory referral to Gastroenterology Autonomic dysfunction documented in this encounterMercy Hospital [facility], formerly [facility]. [facility] [id number] History of Present illness Narrative* María Pearl APRN.[facility] - 05/31/2023 10:45 AM EST Yoli Antunez is a 68 year old male. Patient presents with: Follow Up Today I had the opportunity to have a virtual visit with Yoli Antunez I have communicated my name and active licensure. The patient's identity and physical location wereverified at the time of this visit. Either the patient or their legal sales representative graphic art has been informed of the risks and [...] will repeat tilt table testing here at [facility]. We reviewed the diagnosis of orthostatic [...] was seen by Dr. Vilchis at the [facility] yesterday. Dr. Vilchis feels that Jamil has sick sinus syndrome. He is going to have a pacemaker placed. Jamil is going to have an echocardiogram and stress test next week. Pacemaker to follow the above testing. Skin nerve biopsy here at [facility] not indicative of small fiber neuropathy. [...] ABLATION 12/08/2019 x 3 LAMINECTOMY W/O FFD / VERT SEG LUMBAR 04/22/1989 Laminectomy, lumbar PAST [...] He was seen by Dr. Vilchis at [facility] who would like to place a [...] which included preparing to see the patient, [id number]-[id number] patient care, completing clinical documentation, obtaining and/or [...] this visit on 05/31/23. María Pearl MSN, GLASS TINTER, REEL CART OPERATOR-C documented in this encounterMercy Health Defiance [facility]01-29-2024 Evaluation note* Encounter Date Diagnosis Assessment Notes Treatment Notes Treatment Clinical Notes Apr, Abdominal pain (ICD-10 - R10.9) Apr,4Diarrhea (ICD-10 - R19.7) [facility] Other 12-26-2023 [facility]University [facility]20[facility] Evaluation note* Encounter Date Diagnosis Assessment Notes Treatment Notes Treatment Clinical Notes Mar, Abdominal pain (ICD-10 - R10.9) Mar,3Diarrhea (ICD-10 - R19.7) [facility] Other 11-29-2023 Evaluation note* Encounter Date Diagnosis Assessment Notes Treatment Notes Treatment Clinical Notes Feb, Diarrhea (ICD-10 - R19.7) Feb,Hiatal hernia (ICD-10 - K44.9) [facility] Other 11-06-2023 History of Present illness Narrative* Joann Stark PA-C - 02/25/2023 2:09 PM EST Skin Biopsy Procedure Note Skin Biopsy Accession Number: [id number] Biopsy Date: 02/25/2023 Referring physician: María Pearl [...] EMERGENT procedures): All specimen containers correctly labeled. DVAID Downs PA-C Sign in Pt ID verified [...] Procedure Note Procedure confirmed with provider and product support engineer. Yes, left leg 2 skin biopsies. The [...] home. Specimens were labeled and sent to [facility] Cutaneous Nerve Laboratory. Procedure was performed by: Joann Stark PA-C Assistance in supply/equipment preparation performed by: DAVID Downs Sign out is complete. documented in this encounterMercy Health Defiance Hospital10-17-2023 Miscellaneous Notes* Telephone Encounter - Shivani Nath RN - 02/05/2023 1:00 PM EDT Images from the original note were not included. María Pearl APRN.WORKFORCE CONSULTANT You 7 minutes ago (12:52 PM) This is a normal result. [place] YAMILA Carnes, RN * Telephone Encounter - Shivani Nath RN - 02/05/2023 12:48 PM EDT Images from the original note were not included. Copper: YAMILA Carnes, RN * Telephone Encounter - Aydee Hunter - 02/05/2023 12:06 PM EDT Scanned in results from [facility] for review documented in this encounterMercy Health Defiance Hospital10-12-2023 History of Present illness Narrative* Yossi [...] and scan are done. documented in this encounterUnMemorial Health [facility] Work Phone: [phone]) 939-180610-12-2023 Instructions* Patient Instructions* Yossi Chen MD - 01/31/2023 3:00 PM EDT I will get stool culture and CT scan to figure out the reason for the abdominal pain and diarrhea documented in this encounterOhioHealth Nelsonville [facility] Work Phone: 1([phone]) 555-311710-09-2023 Miscellaneous Notes* Telephone Encounter - Dominique Burns RN - 01/28/2023 4:08 PM EDT Images from the original note were not included. María Pearl APRN.WORKFORCE CONSULTANT You 6 hours ago (9:39 AM) I have a message out to headache clinic about adjusting his medication. YAMILA Cage, RN, BA documented in this encounterMercy Health Defiance Hospital10-09-2023 Miscellaneous Notes* Telephone Encounter - Dominique Burns RN - 01/28/2023 3:39 PM EDT JESSICA sent MCM to patient. Patient read. YAMILA Cage, RN, BA documented in this encounterMercy Health Defiance Hospital10-09-2023 Miscellaneous Notes* Telephone Encounter - Dominique Burns RN - 01/28/2023 10:43 AM EDT Images from the original note were not included. María Pearl APRN.WORKFORCE CONSULTANT You 15 minutes ago (10:27 AM) Thank you. Appears normal. YAMILA Vivar, RN, BA * Telephone Encounter - Dominique Burns RN - 01/28/2023 9:58 AM EDT Images from the original note were not included. YAMILA Cage, RN, BA * Telephone Encounter - Aydee Hunter - 01/28/2023 9:36 AM EDT Scanned in results from [facility] for review documented in this encounterMercy Health Defiance Hospital09-11-2023 History of Present illness Narrative* Kassie Richardson APRN.WORKFORCE CONSULTANT - 12/31/2022 3:15 PM EDT Headache [facility] Follow up visit December 31, 2022 [...] He was evaluated by Cardiology at the [facility] for syncopal episodes. 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 put in in the front bulk loader and helped him to the house [...] essentially unremarkable including troponins and ECG 09/11/2022 [facility]- Cardiology - Jackie Banks VOLTAGE REGULATOR ASSEMBLER wrote: I copied and pasted my initial consult note from [facility] date 07/20/2022 for continuity of care: Hx paroxysmal atrial fibrillation. Undervent a watchman device implant at [facility] 03/06/2022. History of CAD. [...] one month ago by neurolog[facility]. Recent MRA MRV. HPI: Syncope began [...] This Visit Referred [facility]; Headache 1 Onset: - Migraine headache [...] Date AAA (abdominal aortic aneurysm) without rupture ([facility]) Arthritis Atrial fibrillation/flutter CAD (coronary artery disease) CKD (chronic kidney disease) stage 3, GFR 30-59 ml/min ([facility]) Ex-smoker Gastric ulcer GERD (gastroesophageal reflux disease) Gout History of GI bleed HLD (hyperlipidemia) Hypertension 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 ADA treated with BiPAP Peripheral neuropathy Restless leg syndrome TIA (transient ischemic attack) x 2 ALLERGIES Allergen Reactions Penicillins Unknown Tikosyn [Dofetilide] Other: See Comments Aphasia, dizzy, muscle cramps Vancomycin Anaphylaxis MR neck / head angio 07/09/2022- at [facility] Impression No gross evidence for flow-limiting stenosis of bilateral extrarenal vertebral or carotid arteries accounting for extensive patient motion artifact. If persistent concern for an abnormality of the carotid or vertebral arteries, consider CTA if clinically indicated. Impression No focal stenosis, occlusion, or aneurysmal dilatation. Complete la posta of Michel. CT brain 05/23/2022 Impression *Negative [...] osteopenia, and partially imaged atlantoaxial arthritic changes. Chip Separator (topogram) images: No additional findings. HEADACHE SCORES: [...] articulation, and clear,coherent, and relevant. Short and longterm memory, cognition and general fund of knowledge [...] followed by aphasia. He was evaluated in [place] for syncope - felt it was neurocardiogenic [...] which included preparing to see the patient, eclo-yo-wjhd patient care, completing clinical documentation, obtaining and/or reviewing separately obtained history, performing a medically appropriate examination, counseling and educating the patient/family/caregiver, and ordering medications, tests, or procedures. Kassie Richardson APRN.NEETU Headache Section [facility] December 31, 2022 5:03 PM documented in this encounterMercy Health Defiance Hospital08-03-2023 NoteSend Summary: Discharge Summary Providers: Provider RoleProvider Name Radha Jorge Abraham PrimaryHohman, Jennifer Note Recipients: Radha Burris MD - [id number] [] Discharge: Summary: Admission Date: .21-Nov-2022 05:06:00 [...] discharge: Full Code Electronic Signatures: Sivan Costa (GLASS TINTER-WORKFORCE CONSULTANT) (Signed 22-Nov-2022 12:13) Authored: Send Summary, Summary Content, Ongoing Care, DNR Status Yossi Chen) (Signed 22-Nov-2022 12:27) Authored: Summary Content, Ongoing Care, Note Completion Last Updated: 22-Nov-2022 12:27 by Yossi Chen)[facility] 11-21-2022 NotePost Operative Note: PreOp Diagnosis: symptomatic hiatal hernia Post-Procedure Diagnosis: same Procedure: 1. Laparoscopic repair of Type 3 paraesophageal hernia with Toupet wrap and gastroscopy 2. 3. 4. 5. Surgeon: April Resident/Fellow/Other Senior Vice President And Chief Information Officer: Adrián/Elio Estimated Blood Loss (mL): none Specimen: [...] circumferentially. The retroesophageal window was created. The Preston drain was placed. I proceeded with mediastinal [...] esophagus to the right side. A lighted 56-[place] bougie was placed. The shoeshine maneuver was [...] #1 Ethibond with a Tony-Ran in a lyxdmm-fj-mojit fashion. The liver retractor was removed. The [...] Last Updated: 21-Nov-2022 13:27 by Yossi Chen)[facility] 11-21-2022 History of Present illness [id number] patient who underwent laparoscopic repair of paraesophageal [...] it down withwater. Denies heartburn and acid reflux.-[place] [facility] [address] Work Phone: 1(949) 584-519108-02-2023 History of Present illness Narrative 67-year-old patient [...] reflux, heartburn and having less coughing with meal-[place] [facility] [address] DO Work Phone: 1(965) 860-554108-02-2023 NoteHistory & Physical Reviewed: I have reviewed [...] Last Updated: 21-Nov-2022 07:15 by Yossi Chen)[facility] 11-16-2022 Miscellaneous Notes* Telephone Encounter - Jessica Scott - 11/16/2022 5:55 PM EDT Received faxed report of medical records done at . Uploaded via [employer], will be available in [employer] for review shortly. documented in this encounterMercy Health Defiance Hospital07-03-2023 Miscellaneous Notes* Telephone Encounter - Kassie Richardson APRN.NEETU - 10/22/2022 4:33 PM EDT Opened in error Kassie Richardson APRN.WORKFORCE CONSULTANT documented in this encounterMercy Health Defiance Hospital06-29-2023 History of Present illness Narrative* Michaela [...] treatment room. documented in this encounterMercy Health Defiance Hospital06-26-2023 NotePROCEDURE DETAILS Preoperative Diagnosis: Sleep apnea, G47.30 Postoperative Diagnosis: Sleep Apnea Surgeon: Arabella Terry Resident/Fellow/Other Senior Vice President And Chief Information Officer: None of these were associated with this [...] Completion Last Updated: 15-Oct-2022 11:11 by Arabella Terry)[facility]06-26-2023 Miscellaneous Notes* Op Note - Arabella Butt MD - 10/15/2022 11:02 AM EDT PROCEDURE DETAILS Preoperative Diagnosis: Sleep apnea, G47.30 Postoperative Diagnosis: Sleep Apnea Surgeon: Arabella Terry Resident/Fellow/Other Senior Vice President And Chief Information Officer: None of these were associated with this [...] 11:11 by Arabella Terry) documented in this [facility] Work Phone: [phone]) 621-983506-26-2023 Note* Op Note - Arabella Butt MD - 10/15/2022 11:02 AM EDT PROCEDURE DETAILS Preoperative Diagnosis: Sleep apnea, G47.30 Postoperative Diagnosis: Sleep Apnea Surgeon: Arabella Terry Resident/Fellow/Other Senior Vice President And Chief Information Officer: None of these were associated with this [...] Last Updated: 15-Oct-2022 11:11 by Arabella Terry) [facility] Work Phone: [phone]) [phone] Chief complaint Narrative - Reported* An interactive audio and video telecommunication system which permits real time communications between the patient (at the originating site) and provider (at the distant site) was utilized to providethis telehealth service. * Verbal consent was requested and obtained from YOLI ANTUNEZ on this date, 09/25/2022 02:30 PM, for a telehealth visit. * Dysphagia follow-up MB-Qqnhwdpwovfaqq-Equsrhd Work Phone: 1([phone]) 945-458905-25-2023 History of Present illness Narrative* 67 year [...] more in his throat. Seeing neurology at [facility] for his intermittent aphasia. Still awaiting manometry results. * 09/04/22: * Here for follow-up. Esophagram completed 08/10/22 with moderate hiatal hernia, possible inflammatorynarrowing at GEJ, also area of mucosal irregularity for which endoscopy was recommended. He had manometry placed under endoscopy on 08/30/22, overall esophagus appeared normal on their exam with ezqtl4lc nodule at GEJ that was biopsied. Pathology [...] esophagus and pill sticking in the vallecula LY-Yddiukgnmnvvhg-Pbxrkuq Work Phone: 1([phone]) 450-298905-16-2023 History of Present illness Narrative* 67 year [...] esophagus appeared normal on their exam with pjwgs3pc nodule at GEJ that was biopsied. Pathology [...] esophagus and pill sticking in the vallecula UA-Qaecsvhxdypmny-Shwpofa Work Phone: 1([phone]) 311-765205-16-2023 Chief complaint Narrative - Reported* An interactive audio and video telecommunication system which permits real time communications between the patient (at the originating site) and provider (at the distant site) was utilized to providethis telehealth service. * Verbal consent was requested and obtained from YOLI ANTUNEZ on this date, 09/04/2022 11:30 AM, for a telehealth visit. * Dysphagia follow-up CQ-Veakbtulsqqsuj-Cojjabl Work Phone: [phone] NotePatient Name: Yoli Antunez Procedure Date: 08/30/2022 7:32 AM Date of : 1955 Admit Type: Outpatient Site: [place] Procedure Room 5 Ethnicity: Not or Race: White Attending MD: ELISEO Williamson, [id number] Procedure: Upper GI endoscopy Indications: Dysphagia for 5 years to both liquids and solids Patient Profile: This is a 67 year old male. Refer to note in patient chart for documentation of history and physical. Providers: ELISEO Williamson (Doctor), Jaylen Lo RN (Nurse), Florentino De Dios, Merchandising Lead, Kristin Mcdaniels RN (Nurse) Referring: Radha Burris [...] specimen was done by the nurse and master automotive technician using the patient's name and medical record number. Estimated blood loss was minimal. A single 3 mm nodule was found at the gastroesophageal junction, 39 cm from the incisors. Biopsies were taken with a cold forceps for histology. Verification of patient identification for the specimen was done by the nurse and master automotive technician using the patient's name and medical [...] and technici (more content not included)...PROVATION - [id number] Reason for visit Narrative* An interactive audio and video telecommunication system which permits real time communications between the patient (at the originating site) and provider (at the distant site) was utilized to providethis telehealth service. * Verbal consent was requested and obtained from YOLI ANTUNEZ on this date, 08/13/2022 03:15 PM, for a telehealth visit. [facility] [id number] [place] Work Phone: [phone]) [phone] Chief complaint Narrative - Reported* An interactive audio and video telecommunication system which permits real time communications between the patient (at the originating site) and provider (at the distant site) was utilized to providethis telehealth service. * Verbal consent was requested and obtained from YOLI JOHNSONHarini on this date, 07/31/2022 12:30 PM, for a telehealth visit. * [place] HD-Pbbvntzchbghxy-Aphloib Work Phone: [phone] History of Present illness Narrative* 67 year [...] esophagus and pill sticking in the vallecula DU-Lozodlauysdlhw-Gzhkraa Work Phone: [phone] Miscellaneous Notes* Telephone Encounter - Jonathan Pascual [...] infusions 07/26/2022. documented [facility] History of Present illness Narrative* Eleonora [...] day follow-up. documented in this encounterMer[facility]04-03-2023 Miscellaneous Notes* Telephone Encounter - Fadumo Mckenzie - 07/23/2022 11:46 AM EDT Patient last seen on 05/31/22. Asked to follow up with Infusions. documented in this encounterMer[facility]03-24-2023 Miscellaneous Notes* Telephone Encounter - Kassieron Richardson APRN.CNP - 07/13/2022 4:04 PM EDT There are no results in Epic from [facility] in imaging. When did he have them done? Can they fax the results and send the disc. Kassie documented in this encounterMercy [facility]02-13-2023 Miscellaneous Notes* Telephone Encounter - Kassie Richardson APRN.CNP - 06/04/2022 12:48 PM EST Orders for MRA/MRV to be mailed to patient. Kassie Richardson APRN.CNP documented in this encounterMercy [facility]02-09-2023 Instructions* Patient Instructions* Kassie Richardson APRN.CNP - 05/31/2022 9:01 AM EST Greater Occipital Nerve Block Article in [place] [employer] Journal By: Bhavesh Boyd MD Many patients with chronic headache report that their pain typically arises from the neck or, more specifically, the base of the skull. Often that pain arises on one side or the other and extends forward to involve the top of the head, the protestant, the forehead, the eye or some combination [...] give it at least one more try. https://americanheadachesociety.org/wp-content/uploads//Sjluulfbk-Vevdk-U locks_Aug-2009.pdf documented in this encounterMercy Health Def[facility] Hospital02-09-2023 History of Present illness Narrative* Kassie Richardson APRN.NEETU - 05/31/2022 8:00 AM EST Headache Section [facility] Follow up visit May 31, 2022 Chief Complaint: Dizziness Impression and Plan last visit: 06/29/2021 with Aydee Mccabevicky DE ANDA Yoli Antunez is a 66 [...] unrevealing and negative. I sent patient a Quik[employer]io message with this information and we can [...] other than aphasia. He was seen at [facility] for this previously (2020 note, migraine), and follows w/ Neurologist Dr. Wolff in [place]. 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 Chip Separator (topogram) images: No additional findings. 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 Affect is normal and appropriate. Speech is spontaneous and fluent without dysarthria, normal in rate, volume and articulation, and clear,coherent, and relevant. Short and oysterman memory, cognition and general fund of knowledge [...] this case with Dr. Diehl during our DEBBI education program and will go ahead to [...] Care Visit completed when applicable. Kassie Richardson APRN.WORKFORCE CONSULTANT The risks, benefits and anticipated outcomes of [...] which included preparing to see the patient, kkxp-ih-ribh patient care, completing clinical documentation, obtaining and/or reviewing separately obtained history, performing a medically appropriate examination, counseling and educating the patient/family/caregiver, and ordering medications, tests, or procedures. Kassie Richardson APRN.NEETU Headache Section [facility] May 31, 2022 documented in this encounterMercy [facility]09-16-2022 History of Present illness Narrative* Dominique Wilbert - 01/05/2022 4:23 PM EDT CLINICAL PHARMACY [...] Corea MD Internal medicine, PGY-2 [facility] @TODAY@ 10:53 AM Attending Physician Statement I [...] MD Nephrology Attending Physician [facility] 01/05/2022 * Dariela Walker MD - 01/05/2022 10:40 AM EDT Images from the original note were not included. [facility] Office: [phone] Mehdi Mcallister DO, Meliton Willrad DO, Vicente Herrera DO, Johnson Roque DO, Mickie Machado MD, Joie Carbajal MD, Nunu Klein MD, Ktae Chester MD, Mariano Diego MD, Cal Sanchez MD, Darren Waldrop DO, Erika Aldridge MD, Carlitos Abel DO, Lorenzo Wagner MD, Brian Swenson MD, Osmel Mcallister DO, Darline Walden MD, John Saul MD, Zuleyka Negro MD, Keiry Jones MD, Shefali Mcdonnell MD, Dariela Walker MD, Shashi Kiser, DO, Cornelia George MD, Octaviano Bolden MD, Julia Vasquez, WORKFORCE CONSULTANT, Joanne Hameed, WORKFORCE CONSULTANT, Jazmine Huitron, WORKFORCE CONSULTANT, Tono Braun, WORKFORCE CONSULTANT, Annie Quijano, DNP, Brunilda Fuller, WORKFORCE CONSULTANT, Andria Rutherford, WORKFORCE CONSULTANT, Akila Franks, WORKFORCE CONSULTANT, Shivani Rascon, WORKFORCE CONSULTANT, Mayte Martinez, WORKFORCE CONSULTANT, DARNELL NelsonC, Esha Kumari, CABLE RIGGER, Monica Levy, DNP, Marifer Dunne, WORKFORCE CONSULTANT, Rosie Longoria, [facility], Nohelia Morris, WORKFORCE CONSULTANT [facility] Progress Note Name: Yoli Antunez Acct: [id number] Room: [facility]0318-[facility] Day: 5 Admit Date: 12/31/2021 11:15 PM [...] improved to 2.5, bicarb 25 Brief History: 42-lrnk-hun-year-old with prior history of CKD 3, hypertension, prior TIA, paroxysmal A. fib, aortic root aneurysm presented with right lower quadrant and flank pain, initially started on 12/28/2021 when he was evaluated at [facility]. Imaging suggested possible epiploic appendicitis versus [...] by Darline Walden MD S/p egd at [facility] 08/2020 Plan: S/p cholecystectomy day3 -Continue Percocet [...] corrected by editing Spencer Grijalva MD MD, [facility] (), FACP 01/04/2022 1:31 PM [facility] * Dariela Walker MD - 01/04/2022 10:45 AM EDT Images from the original note were not included. [facility] Office: [phone] Mehdi Mcallister DO, Meliton Willard DO, Vicente [...] George MD, Octaviano Bolden MD, Julia Vasquez, WORKFORCE CONSULTANT, Joanne Hameed, WORKFORCE CONSULTANT, Jazmine Huitron, WORKFORCE CONSULTANT, Tono Braun, WORKFORCE CONSULTANT, Annie Quijano, KENYA, Brunilda Fuller, WORKFORCE CONSULTANT, Andria Rutherford, WORKFORCE CONSULTANT, Akila Franks, WORKFORCE CONSULTANT, Shivani Rascon, WORKFORCE CONSULTANT, Mayte Martinez, WORKFORCE CONSULTANT, Aliya Reyes PA-C, Esha Kumari, CABLE RIGGER, Monica Levy DNP, Marifer Dunne, WORKFORCE CONSULTANT, Rosie Longoria, WORKFORCE CONSULTANT, Nohelia Morris, WORKFORCE CONSULTANT [facility] Progress Note Name: Yoli Antunez Acct: [id number] Room: 0318/0318-01 IP Day: 4 Admit Date: 12/31/2021 11:15 PM PCP: Radha Price MD Code Status: Full Code Subjective: C/C: nausea,vomiting, fevers Interval History Status: improved. Patient indicates doing well no nausea vomiting. Continues to have left upper quadrant pain intermittently. No flatus or bowel movement yet . hemodynamically stable. Creatinine improved to 3.07 WBC 12.2 Brief History: 58-hzwq-wmd-year-old with prior history of CKD 3, hypertension, prior TIA, paroxysmal A. fib, aortic root aneurysm presented with right lower quadrant and flank pain, initially started on 12/28/2021 when he was evaluated at [facility]. Imaging suggested possible epiploic appendicitis versus [...] kidney disease) stage 3, GFR 30-59 ml/min ([facility]) 01/01/2022 Yes Non-intractable vomiting with nausea 01/01/2022 Yes Jaundice 01/01/2022 Yes Lactic acid acidosis 01/01/2022 Yes Hyperglycemia 01/01/2022 Yes Paroxysmal A-fib (HCC) 01/01/2022 Yes History of TIA (transient ischemic attack) 01/01/2022 Yes Apnea 01/01/2022 Yes History of kidney stones 01/01/2022 Yes Metabolic acidosis 01/03/2022 Yes History of peptic ulcer 01/01/2022 Yes Overview Signed 01/01/2022 2:21 AM by Darline Walden MD S/p egd at [facility] 08/2020 Plan: S/p cholecystectomy day2 -Continue Percocet [...] Progress Note PATIENT: YOLI ANTUNEZ CSN #: [id number] : 1955 ADMIT DATE: 12/31/2021 11:15 PM [...] RN CDS. Please call/text/PS with any questions; [phone]. Options provided: -- Sepsis, present on admission [...] MD 01/03/2022 4:35 PM * Janet Ford, GLASS TINTER - WORKFORCE CONSULTANT - 01/03/2022 2:02 PM EDT [facility] Yoli Anutnez is a 66 y.o. male patient. Hospitalization [...] results for input(s): LABIRON, TIBC, IRON, FERRITIN, [id number], FOLATE, OCCULTBLD in the last 72 hours. [...] your patient. Janet Ford APRN - NEETU [place], [place] Please note that this note was generated using a voice recognition dictation software. Although every effort was made to ensure the accuracy of this automated turn supervisor, some errors in turn supervisor may have occurred. Associated attestation - Juan [...] and primary team. Juan David Marr MD [facility] [place], [place] * Dariela Walker MD - 01/03/2022 9:30 AM EDT Images from the original note were not included. [facility] Office: [phone] Mehdi Mcallister DO, Meliton Willard DO, Vicente [...] George MD, Octaviano Bolden MD, Julia Vasquez, WORKFORCE CONSULTANT, Joanne Hameed, WORKFORCE CONSULTANT, Jazmine Huitron, WORKFORCE CONSULTANT, Tono Braun, WORKFORCE CONSULTANT, Annie Quijano, DNP, Brunilda Fuller, WORKFORCE CONSULTANT, Andria Rutherford, WORKFORCE CONSULTANT, Akila Franks, WORKFORCE CONSULTANT, Shivani Rascon, WORKFORCE CONSULTANT, Mayte Martinez, WORKFORCE CONSULTANT, Aliya Reyes PA-C, Esha Kumari, CABLE RIGGER, Monica Levy, DNP, Marifer Dunne, WORKFORCE CONSULTANT, Rosie Longoria, WORKFORCE CONSULTANT, Nohelia Morris, WORKFORCE CONSULTANT [facility] Progress Note Name: Yoli Antunez Acct: [id number] Room: 0318/0318-01 Day: 3 Admit Date: 12/31/2021 [...] improved, lipase improved to 250 Brief History: 47-yizv-eyv-year-old with prior history of CKD 3, hypertension, prior TIA, paroxysmal A. fib, aortic root aneurysm presented with right lower quadrant and flank pain, initially started on 12/28/2021 when he was evaluated at [facility]. Imaging suggested possible epiploic appendicitis versus [...] -- ANIONGAP 14 13 12 -- -- 16 LABGLOM 16* 16* 16* [...] results found for: POCPH, PHART, PH, POCPCO2, FRC1PDE, PCO2, POCPO2, PO2ART, PO2, POCHCO3, CAU3WZW, HCO3, NBEA, PBEA, BEART, BE, THGBART, THB, GWD9MIG, CSAG8MSM, H5QJUXPH, O2SAT, FIO2 Lab Results Component Value Date/Time [...] kidney disease) stage 3, GFR 30-59 ml/min ([facility]) 01/01/2022 Yes Non-intractable vomiting with nausea 01/01/2022 Yes Jaundice 01/01/2022 Yes Lactic acid acidosis 01/01/2022 Yes Hyperglycemia 01/01/2022 Yes Paroxysmal A-fib (HCC) 01/01/2022 Yes History of TIA (transient ischemic attack) 01/01/2022 Yes Apnea 01/01/2022 Yes History of kidney stones 01/01/2022 Yes History of peptic ulcer 01/01/2022 Yes Overview Signed 01/01/2022 2:21 AM by Darline Walden MD S/p egd at [facility] 08/2020 Plan: S/p cholecystectomy day1 -Was started [...] and directed the medical decision making with Resident/DEBBI afterthe physical/radiologic exam and laboratory values were [...] from the original note were not included. [facility] Office: [phone] Mehdi Mcallister DO, Meliton Willard DO, Vicente [...] George MD, Octaviano Bolden MD, Julia Vasquez, WORKFORCE CONSULTANT, Joanne Hameed, WORKFORCE CONSULTANT, Jazmine Huitron, WORKFORCE CONSULTANT, Tono Braun, WORKFORCE CONSULTANT, Annie Quijano, DNP, Brunilda Fuller, WORKFORCE CONSULTANT, Andria Rutherford, WORKFORCE CONSULTANT, Akila Franks, WORKFORCE CONSULTANT, Shivani Rascon, WORKFORCE CONSULTANT, Mayte Martinez, WORKFORCE CONSULTANT, Aliya Reyes, PA-C, Esha Kumari, CABLE RIGGER, Monica Levy, DNP, Marifer Dunne, WORKFORCE CONSULTANT, Rosie Longoria, WORKFORCE CONSULTANT, Nohelia Morris, WORKFORCE CONSULTANT [facility] Progress Note Name: Yoli Antunez Acct: [id number] Room: [address] [place] [address] Day: 2 Admit Date: 12/31/2021 11:15 PM [...] showed no hydronephrosis. Hemodynamically stable Brief History: 89-lqse-vso-year-old with prior history of CKD 3, hypertension, prior TIA, paroxysmal A. fib, aortic root aneurysm presented with right lower quadrant and flank pain, initially started on 12/28/2021 when he was evaluated at [facility]. Imaging suggested possible epiploic appendicitis versus [...] Net -2270 ml Labs: Hematology: Recent Labs 01/01/2254501/01/2272601/02/22521 WBC -- 16.8* 12.2* RBC -- 3.54* [...] 18 18 17 19 -- Recent Labs 09/12/22 0326 09/12/22 0546 09/12/22 0727 09/13/22 0522 PROT 5.6* 5.5* 5.8* 6.1* LABALBU [...] results found for: POCPH, PHART, PH, POCPCO2, BJN4XQR, PCO2, POCPO2, PO2ART, PO2, POCHCO3, FIG4OGE, HCO3, NBEA, PBEA, BEART, BE, THGBART, THB, UHC3ZBZ, WSDH5CJQ, R8ANVQHJ, O2SAT, FIO2 Lab Results Component Value Date/Time [...] by Darline Walden MD S/p egd at [facility] 08/2020 Plan: S/p cholecystectomy day0 - Increase [...] Islas MD - 01/02/2022 9:29 AM EDT [facility] Progress Note Yoli Antunez [...] results for input(s): LABIRON, TIBC, IRON, FERRITIN, KYRWYATD98, FOLATE, OCCULTBLD in the last 72 hours. BMP Recent Labs 01/01/22 0546 01/01/2272601/02/22521 NA 140 138 141 K 4.5 4.4 4.6 CL 109* 107 109* CO2 18* 19* 18* BUN 59* 59* 63* CREATININE 3.86* 3.74* 4.02* GLUCOSE 106* 109* 106* CALCIUM 6.5* 6.5* 7.2* LFTS Recent Labs 01/01/22 0326 01/01/22 0546 01/01/22 0727 01/02/22 0522 ALKPHOS 98 98 101 96 ALT 202* [...] Rachel Islas MD Internal medicine resident, PGY1 [place], [place] Please note that this note was generated using a voice recognition dictation software. Although every effort was made to ensure the accuracy of this automated turn supervisor, some errors in turn supervisor may have occurred. Associated attestation - Juan [...] 4200 [Urine:4200] LAB: CBC: Recent Labs 01/01/22 0727 01/02/22 0522 WBC [...] and directed the medical decision making with Resident/DEBBI afterthe physical/radiologic exam and laboratory values were [...] original note were not included. Occupational Therapy [facility] Occupational Therapy Not Seen Note DATE: 01/01/2022 NAME: Yoli Antunez : 1955 Patient not seen this date for Occupational Therapy due to: Patient independent with ADLs and functional tasks with no acute OT needs. Will defer OT evaluationat this time. Please reorder OT if future needs arise. Next Scheduled Treatment: N/A * Aydee Smart RN - 01/01/2022 8:52 AM EDT Talked to [facility] cardiac and they said his loop recorder was put in November 09 and it is a SYLLETA device model m301 LUX-DX. MRI notified. [facility] Work Phone: 1(714) 221-790909-16-2022 Hospital course Narrative* Dariela Walker MD - 01/05/2022 2:37 PM EDT Images from the original note were not included. [facility] Office: [phone] Mehdi Mcallister DO, Meliton Willard DO, Vicente [...] George MD, Octaviano Bolden MD, Julia Vasquez, WORKFORCE CONSULTANT, Joanne Hameed, WORKFORCE CONSULTANT, Jazmine Huitron, WORKFORCE CONSULTANT, Tono Braun, WORKFORCE CONSULTANT, Annie Quijano, DNP, Brunilda Fuller, WORKFORCE CONSULTANT, Andria Rutherford, WORKFORCE CONSULTANT, Akila Franks, WORKFORCE CONSULTANT, Shivani Rascon, WORKFORCE CONSULTANT, Mayte Martinez, [facility], Aliya Reyes PA-C, Esha Kumari, [facility], Monica Levy, [facility], Marifer Dunne, [facility], Rosie Longoria, [facility], Nohelia Morris, WORKFORCE CONSULTANT [facility] Discharge Summary Patient ID: Yoli Antunez : 1955 ACCOUNT: [id number] Patient's PCP: Radha Price MD Admit Date: [...] Discharged Condition: good Hospital Stay: Hospital Course: 62-izbz-igt-year-old with prior history of CKD 3, hypertension, prior TIA, paroxysmal A. fib, aortic root aneurysm presented with right lower quadrant and flank pain, initially started on 12/28/2021 when he was evaluated at [facility]. Imaging suggested possible epiploic appendicitis versus [...] Discharge plan: Disposition: Home Physician Follow Up: [facility] [address] [facility] [address] Schedule an appointment as soon as possible for a visit on 01/16/2022 For wound re-check post op from your Lap Ivy Campos MD [address] [facility] [address] Follow up in 1 month(s) Diet: regular [...] Your Medications These medications were sent to [address] - [phone] - F [phone] [place] [id number] ciprofloxacin 500 MG tablet dilTIAZem 120 MG [...] in this patient'scare. documented [facility] [employer] Phone: 1(478) 252-404209-14-2022 Hospital Discharge instructions* Discharge Instructions* Sudheer Foote [...] be called to the nurse line at [phone] and please leave a message. * Attachments The following attachments cannot be sent through Care Everywhere. * Pancreatitis: Acute: General Info (Georgian) documented in this encounterLIFEPOINT HEALTH [employer] Phone: 1(893) 817-429507-28-2022 NotePROCEDURE: XR FOOT LT MIN 3 VIEWS [...] Electronically authenticated by: DONNELL DU Date: 2021-11-16 08:26[facility]06[facility] Evaluation note* Encounter Date Diagnosis Assessment Notes Treatment Notes Treatment Clinical Notes Sep, Cervical spondylosis (ICD-10 - M 47.812) 66 year old male here for follow [...] be doing very well and does not requirefurther treatment at this time. I recommend he continue on ROM exercises at home. He is encouraged to call the office if his pain returns. Sep,Left shoulder pain (ICD-10 - M25.512) If his pain persists, we can consider other interventional options in the future Sep,hronic pain (ICD-10 - G89.29) Patient is encouraged to call the office if symptoms return [facility] Other 05-11-2022 Evaluation note* Encounter Date Diagnosis Assessment Notes Treatment Notes Treatment Clinical Notes August, Cervical spondylosis (ICD-10 - M 47.812) 66 year old male here for follow up status post cervical facet medial branch radiofrequency denervation on the left at C3, C4, C5 and C6 under fluoroscopic guidance. Patient reports 70% pain releif and improved ROM following procedure. He voices complaints of mild residual left sided neck pain, denying radicular symptoms. He notes severe left interscapular pain last week while lifting a board. Hehas not experienced this pain since. He denies any procedure related complications. I discussed different treatment options with the patient and I recommend that he give the procedure more time as itcan take up to 6 weeks for maximum relief. In the meantime, he is encouraged to use ice/heat or topical creams as tolerated for pain. August,Left shoulder pain (ICD-10 - M25.512) If his pain persists, we can consider other interventional options in the future August,hronic pain (ICD-10 - G89.29) Continue with current treatment plan [facility] Other 04-14-2022 Evaluation note* Encounter Date Diagnosis Assessment Notes Treatment Notes Treatment Clinical Notes Jul, Cervical spondylosis (ICD-10 - M 47.812) 66 year old male here for follow up status post cervical facet medial branch block left at C3, C4, C5 and C6 under fluoroscopic guidance. Patient reports 85- 90% pain relief for 1 day following procedure. He voices continued compaints of neck pain with intermittent radiation down the left arm to theelbow. Different treatment options were discussed in detail with the patient, and I recommend we proceed with a left cervical facet RFA under fluoroscopic guidance. Risks and benefits of procedure explained to patient; patient verbalizes understanding. Jul,Left shoulder pain (ICD-10 - M25.512) If his pain persists, we can consider other interventional options in the future Jul,hronic pain (ICD-10 - G89.29) Continue with current treatment plan [facility] Other 01-10-2022 History of Present illness Narrative* [...] 01, 2021 8:21 AM documented [place] [address]-[place]2020 History of Present illness Narrative* Dysphagia with [...] for complaint except as noted in HPI. QM-Krnztywxsapeeb-[facility]vis[facility] [address] Work Phone: [phone] History of Present illness Narrative* Dysphagia with [...] for complaint except as noted in HPI. WB-Wdwfiiebucfggl-Fgjqpyq Voice Work Phone: 1(778) 855-939006-01-2020 History of Present illness Narrative* 67 year [...] for complaint except as noted in HPI. LD-Copofhfcshbzxs-Hdguwqr Work Phone: 1(525) 558-409606-01-2020 History of Present illness Narrative* Dysphagia with [...] for complaint except as noted in HPI. [facility] [address] Work Phone: 1(309) 122-438701-30-2019 History and physical note Author Charlene Soria [facility] April 16, 2023 10:45amNote Date/TimeDecember 2022 10:45amDalton Ville [id number] Gastroenterology H&P Signed Patient: Yoli Antunez Jr MR#: [id number] : 1955 Acct:[id number] Age/Sex: 67 / M Adm Date: 3 Loc: Room: Type: [facility] Attending Dr: Charlene Soria MD Copies to: MD Radha Vicente MD~ Date of Service: 04/16/2023 HISTORY & PHYSICAL: Patient's history with special attention to the cardiovascular, pulmonary systems and the current problem was reviewed with the patient immediately prior to the procedure. Present medications and doses reviewed in the EMR. Allergies and pertinent laboratory tests were also re viewedat this time in the EMR. The physical [...] signed by Charlene Soria MD> 04/16/23 1045 [facility] Work Phone: Consult note* Clinical Note Date No Information [facility] Work Phone: Discharge summary* Clinical Note Date No Information [facility] Work Phone: Evaluation + Plan note Future Appointments Appointment Date:10/07/2024 01:30:00 PM Scheduled Provider: Location:[facility] Appointment Type:Surgery [facility] Evaluation noteNo thredUP Other Evaluation note* Diagnosis Gall stone pancreatitis- [...] Metabolic acidosis Acidosis documented in this encounter [facility] Work Phone: evaluation note* Diagnosis Chronic migraine without aura, intractable, without status migrainosus- Primary Aphasia Other specified transient cerebral ischemias [facility] Diagnosis Chronic migraine without aura, with intractable migraine, so stated, with status migrainosus- Primary [facility]* Diagnosis Chronic migraine without aura, with intractable migraine, so stated, with status migrainosus- Primary [facility]* Diagnosis Autonomic dysfunction- Primary Unspecified disorder of autonomic nervous system Dizzy spells Dizziness and giddiness [facility]* Diagnosis Diarrhea, unspecified type- Primary Left lower quadrant abdominal pain documented in this encounter [facility] Work Phone: Evaluation note* Diagnosis Disturbance of skin sensation- Primary [facility] Diagnosis Left lower quadrant abdominal pain documented in this encounter [facility] Work Phone: Evaluation note* Diagnosis Dysphagia, [...] Obstructive sleep apnea (adult) (pediatric) 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, unspecified long-term (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 of antithrombotics/antiplatelets 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 Personal history of transient ischemic attack (TIA), and cerebral infarction without residual deficits Personal history of nicotine dependence Allergy status to penicillin documented in this encounter [facility] Work Phone: Evaluation note* Diagnosis Obstructive [...] joint, bilateral Personal history of nicotine dependence 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 Allergy status to penicillin Allergy status to other antibiotic agents documented in this encounter [facility] Work Phone: Evaluation noteNo assessment information available [facility] Work Phone: Evaluation note* Diagnosis Orthostatic hypotension- Primary [place]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) [facility]* Diagnosis Shortness of breath [facility]* Type Assessment Date No Information [facility] Work Phone: Evaluation note* Diagnosis Anxiety- Primary Anxiety state, unspecified Dermatitis Contact dermatitis and other eczema, due to unspecified cause Paroxysmal atrial fibrillation ([facility]) Atrial fibrillation [facility] Diagnosis Anxiety- Primary Anxiety state, unspecified Dermatitis Contact dermatitis and other eczema, due to unspecified cause Paroxysmal atrial fibrillation ([facility]/HCC) Atrial fibrillation 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 ([facility]) Acquired hypothyroidism ([facility]) Unspecified hypothyroidism [facility]* Diagnosis Anxiety- Primary Anxiety state, unspecified Dermatitis Contact dermatitis and other eczema, due to unspecified cause Paroxysmal atrial fibrillation ([facility]) Atrial fibrillation 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 ([facility]) Arteriosclerosis of coronary artery ([facility])- Primary Atypical angina ([facility]) Other and unspecified angina pectoris [facility]* Diagnosis Anxiety- Primary Anxiety state, unspecified Dermatitis Contact dermatitis and other eczema, due to unspecified cause Paroxysmal atrial fibrillation ([facility]) Atrial fibrillation 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 ([facility]) Dermatitis- Primary Contact dermatitis and other eczema, due to unspecified cause [facility]* Diagnosis Diarrhea, unspecified type- Primary Autonomic dysfunction Angina at rest ([facility]) Other and unspecified angina pectoris documented [facility]* Diagnosis Dermatitis- Primary Contact dermatitis and other eczema, due to unspecified cause Chronic kidney disease, stage 3a (HCC) ([facility]) Atherosclerosis of aorta ([facility]) Atherosclerosis of aorta Thoracic aortic ectasia ([facility]) Thoracic aortic ectasia [facility]* Diagnosis Irritant contact dermatitis due to other agents- Primary [facility]* Diagnosis Anxiety- Primary Anxiety state, unspecified Dermatitis Contact dermatitis and other eczema, due to unspecified cause Paroxysmal atrial fibrillation ([facility]) Atrial fibrillation 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 ([facility]) Restless leg- Primary Restless legs syndrome (RLS) documented [facility]* Diagnosis Anxiety- Primary Anxiety state, unspecified Dermatitis Contact dermatitis and other eczema, due to unspecified cause Paroxysmal atrial fibrillation (CMS/HCC) Atrial fibrillation Other thrombophilia (CMS/HCC) Postprocedural hypoparathyroidism (CMS/HCC) Acquired hypothyroidism ([facility]/HCC) Unspecified hypothyroidism [facility]* Diagnosis Anxiety- Primary Anxiety state, unspecified Dermatitis Contact dermatitis and other eczema, due to unspecified cause Paroxysmal atrial fibrillation (CMS/HCC) Atrial fibrillation Other thrombophilia (CMS/HCC) Postprocedural hypoparathyroidism ([facility]/HCC) Ptosis of both eyelids- Primary Unspecified ptosis of eyelid [facility]* Diagnosis Anxiety- Primary Anxiety state, unspecified Dermatitis Contact dermatitis and other eczema, due to unspecified cause Paroxysmal atrial fibrillation (CMS/HCC) Atrial fibrillation Other thrombophilia (CMS/HCC) Postprocedural hypoparathyroidism ([facility]/HCC) Restless legs syndrome- Primary Restless legs syndrome (RLS) POTS (postural orthostatic tachycardia syndrome) Unspecified tachycardia Aneurysm of ascending aorta without rupture ([facility]) Coronary artery disease involving nondalton heart, unspecified vessel or lesion type, unspecified whether angina present ([facility]/HCC) Paroxysmal atrial fibrillation ([facility]/HCC) Atrial fibrillation Essential hypertension ([facility]) Unspecified essential hypertension Presence of Watchman left atrial appendage closure device Transient ischemic attack Unspecified transient cerebral ischemia Gastroesophageal reflux disease without esophagitis Esophageal reflux Benign prostatic hyperplasia with urinary obstruction Stage 3a chronic kidney disease (HCC) ([facility]) 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) Vitamin D deficiency Chronic migraine without aura, with intractable migraine, so stated, with status migrainosus ([facility]/HCC) Chronic migraine without aura, with intractable migraine, so stated, with status migrainosus Meniere's disease, unspecified laterality Acquired ptosis of right eyelid Acquired hypothyroidism ([facility]/HCC) Unspecified hypothyroidism History of smoking Personal history of tobacco use, presenting hazards to health Bronchiectasis, uncomplicated (CMS/HCC) Chronic combined systolic (congestive) and diastolic (congestive) heart failure ([facility]/HCC) ADA (obstructive sleep apnea) Obstructive sleep apnea [...] [facility]* Diagnosis Orthostatic lightheadedness- Primary Dizziness and giddiness Ptosis of right eyelid Unspecified ptosis of eyelid Hoarseness of voice Dysphonia Disturbance of skin sensation Abnormality of gait and mobility Abnormality of gait Falls frequently Personal history of fall Orthostatic hypotension Voice disturbance Voice and resonance disorder, unspecified [facility] Diagnosis Ptosis of right eyelid- Primary Unspecified ptosis of eyelid Hoarseness of voice Dysphonia [facility] Diagnosis Anxiety- Primary Anxiety state, unspecified Dermatitis Contact dermatitis and other eczema, due to unspecified cause Paroxysmal atrial fibrillation (HCC) Atrial fibrillation Other thrombophilia ([facility]HS-HCC) Postprocedural hypoparathyroidism (HCC) Muscle cramps- Primary Acquired hypothyroidism Unspecified hypothyroidism Hypocalcemia Stage 3b chronic kidney disease (CMS-HCC) documented in this encounter [facility] HealthcareEvaluation note* Diagnosis Anxiety- Primary Anxiety state, unspecified Dermatitis Contact dermatitis and other eczema, due to unspecified cause Paroxysmal atrial fibrillation (HCC) Atrial fibrillation Other thrombophilia ([facility]HS-HCC) Postprocedural hypoparathyroidism (HCC) Acquired hypothyroidism Unspecified hypothyroidism documented in this encounter [facility] HealthcareEvaluation note* Diagnosis Anxiety- Primary Anxiety state, unspecified Dermatitis Contact dermatitis and other eczema, due to unspecified cause Paroxysmal atrial fibrillation (HCC) Atrial fibrillation Other thrombophilia ([facility]HS-HCC) Postprocedural hypoparathyroidism (HCC) Dizziness- Primary Dizziness and giddiness Pain in both lower extremities Acquired hypothyroidism Unspecified hypothyroidism documented in this encounter [facility] HealthcareHistory and physical note* Clinical Note Date No Information [email or web address] Work Phone: History general Narrative - Reported* Type Description Date Medical History 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 Medical Historyrestless leg syndromeMedical HistoryHypertensionMedical History TIAMedical HistoryBleeding ulcersMedical HistoryGOUTMedical HistoryLEFT EYE VITREOUS HEMORRAGESurgical HistoryCervical disc surgerySurgical History Procedure:L4-5 LAMINECTOMY;Disease:Surgical Historyknee replacement bilateral Surgical HistoryProcedure:Appendectomy;Disease:Surgical HistoryProcedure:RIGHT PARTIAL KNEE REPAIR;Disease:Surgical HistorytonsillectomySurgical History Procedure:MULTIPLE BIOPSIES AND EMG'S;Disease:Surgical Historywisdom teeth Surgical HistorycolonoscopySurgical Historycortisteroid lumbar injections08/12/14 Surgical HistoryappendectomySurgical HistoryC3,4,and 5 have platesSurgical HistoryLeft partial knee replacement05/08/2016Surgical Historylumbar laminectomy Surgical HistoryEGD2 years agoSurgical HistoryReattach left kguysr36/2018 Surgical HistoryHeart Cath05/02/18Surgical HistoryTotal Substernal Thyroidectomy 09/24/2018Surgical HistoryEGD with xsmytzkcma56/19Surgical Historyleft ureteral stent xbvxvhojf65/19Surgical Historysteel removed from left eye04/23/2019 Hospitalization Historysee aboveHospitalization Historycardiac [facility] Other History of Present illness Narrative* Patient [...] any concerns. [facility] [address] [place] Work Phone: History of Present illness Narrative* Mr. ANTUNEZ , 1955, referred for an initial consultation with me but established with this practice, with a long history of waking up feeling unrefreshed, excessive daytime fatigue. * [place] Sleepiness Scale Score is 16 /24. Fatigue [...] / 20 * Nasal Obstruction VAS- 0/10 GB-Nyovyfpyjrbwnp-Axslr MAC1 302 Work Phone: Hospital course Narrative No data available for this section [facility] Hospital Discharge instructions Additional Instructions DISCHARGE INSTRUCTIONS [...] -Follow up pathology -Follow up in the [facility] Work Phone: Hospital Discharge instructions No data available for this section [facility] Instructions* Date Instruction Additional Infor mation No Information [facility] Work Phone: Progress note* Clinical Note Date No Information [facility] Work Phone: Progress note No data available for this section [facility] Reason for referral (narrative)* Reason For Referral No Information [facility] Work Phone: Rempeh for referral (narrative)* Consultation (Routine) - AuthorizedSpecialtyDiagnoses / ProceduresReferred By Contact Referred To ContactGastroenterology Diagnoses Diarrhea, unspecified type Procedures [place] OFFICE/OUTPATIENT [facility] 60 MINUTES Radha Burris MD [address] [place] [address] Michelle Gilmore MD [address] [place] [address] Referral IDStatusReasonStart DateExpiration DateVisits RequestedVisits [id number] Specialty Services Required 1 [facility] HealthcareReason for referral (narrative)No reason for referral information availableFort [facility] Work Phone: Reason for visit Narrative* Consultation (Routine) - ClosedSpecialtyDiagnoses / ProceduresReferred By ContactReferred To Contact Neurology Diagnoses Acquired ptosis of right eyelid Procedures [place] OFFICE/OUTPATIENT [facility] MDM 60 MINUTES Eleonora Leo NP [address] [place] [address] Phone: tel: fax: Ranjana Mack DO [address] [place] [address] Phone: tel: fax: Referral IDStatusReasonStart DateExpiration DateVisits RequestedVisits [id number] Consult and Treat / [facility] Healthcare Summary Purpose Family History No Family [...] aortic aneurysm (AAA) Unknown Malignant neoplasm of lungUnknownNot SpecifiedMalignant neoplasm of lungUnknown Relationship Condition Age at Onset Recorded Date/T tavia father Abdominal aortic aneurysm (AAA) Unknown Malignant neoplasm of lungUnknownNot SpecifiedMalignant neoplasm of lungUnknown fatherDeceasedUnknownFamily history of lung cancerUnknownMalignant neoplasm UnknownHeart diseaseUnknownHypertensionUnknownNot SpecifiedHistory of stroke UnknownDeceasedUnknown Family Member Type Diagnosis Age At Onset No Information Relationship Condition Age at Onset Recorded Date/T tavia father Abdominal aortic aneurysm (AAA) Unknown Malignant neoplasm of lungUnknownmotherMalignant neoplasm of lungUnknownfather DeceasedUnknownFamily history of lung cancerUnknownMalignant neoplasmUnknown Heart diseaseUnknownHypertensionUnknownmotherHistory of strokeUnknownDeceased Unknown Advance Directives No Advanced Directives Records FoundDocuments on File TypeDate RecordedPatient RepresentativeExplanationACP-Advance DirectiveACP-Power of AttorneyCode StatusDate ActivatedDate InactivatedCommentsFull Code12/31/2021 11:43 PMFull Code12/31/2021 11:43 PM12/31/2021 11:43 PMCode StatusDate Activated Date InactivatedCommentsFull Code01/15/2020 1:13 AM01/15/2020 5:04 PMDocumentation of decision process for this code status:Discussed with patient or surrogate. This is the code status chosen by the patient/surrogate. Advance Directive Response Recorded Date/ Time Advance Directives No April 29, 2018 9:44am Code StatusDate ActivatedDate InactivatedCommentsFull Code01/15/2020 1:13 AM 01/15/2020 5:04 PMQuestionAnswerCommentsDocumentation of decision process for this code status:Discussed with patient or surrogate. This is the code status chosen by the patient/surrogate. Directive Yes / No Effective Date File Name No Information Advance Directive Response Recorded Date/ Time Advance Directives No December 8:55am Date ActivatedDate InactivatedComments01/15/2020 1:13 AM01/15/2020 5:04 PMQuestion AnswerCommentsDocumentation of decision process for this code status:* Discussed with patient or surrogate. This is [...] flowsheet. 20g in R forearm. Pt stating headache5-10. Pt placed on tele and educated on calling for nurse for OOB. Fluids started per protocol. Call light within reach. Will continue to monitor. documented in this encounter Reason for Referral SpecialtyDiagnoses / ProceduresReferred By ContactReferred To ContactCT IMAGING Diagnoses Shortness of breath Procedures CT CHEST WO IVCON CAT SCAN OF CHEST Cameron Harmon MD [address] [place] [id number] [facility] [place] [address] Referral IDStatusReasonStart DateExpiration DateVisits RequestedVisits [id number] Auto-Generated Referral /[id number] / ProceduresReferred By ContactReferred To ContactRadiology Diagnoses Left lower quadrant abdominal pain Procedures CT abdomen pelvis w IV contrast Yossi Chen MD [address] [facility] Medical [facility] [address], [address] [place] [address] Referral IDStatusReasonRockville DateExpiration DateVisits RequestedVisits [id number] Perform Procedure /[id number] / ProceduresReferred By ContactReferred To ContactNeurology Diagnoses Autonomic dysfunction Dizzy spells Procedures CONSULT TO NEUROLOGY OFFICE/OUTPATIENT [facility] 60-74 MINUTES Kassie Richardson, GLASS TINTER.WORKFORCE CONSULTANT [address] [place] [address] Referral IDStatusReasonStseville DateExpiration DateVisits RequestedVisits [id number] PCP Requested Referral /[id number] / ProceduresReferred By ContactReferred To ContactMR IMAGING Diagnoses Chronic migraine without aura, intractable, without status migrainosus Aphasia Other specified transient cerebral ischemias Procedures MRV BRAIN WO IVCON MRA, HEAD W/O CONTRAST Kassie Richardson BRENNA.WORKFORCE CONSULTANT [address] [place] [address] Mr Imaging Referral IDStatusRe[facility] DateExpiration DateVisits RequestedVisits [id number] Review Auto-Generated Referral /[id number] / ProceduresReferred By ContactReferred To ContactMR IMAGING Diagnoses Chronic migraine without aura, intractable, without status migrainosus Aphasia Other specified transient cerebral ischemias Procedures MRA BRAIN WO IVCON MRA, HEAD W/O CONTRAST Kassie Richardson, GLASS TINTER.WORKFORCE CONSULTANT [address] [place] [address] Mr Imaging Ref[facility]Status[facility] DateExpiration DateVisits RequestedVisits [id number] Review Auto-Generated Referral Medications Administered Section Medication OrderMAR ActionAction DateDoseRateSite betamethasone acetate-betamethasone sodium phosphate 6 mg injection (CELESTONE) 6 mg, OTHER, ONCE, 1 dose, On Sis 05/31/22 at 1700, Protect From Light. Given05/31/2022 5:00 PM EST6 mgOther ropivacaine (PF) 5 mg/mL (0.5 %) 50 mg injection (NAROPIN) 50 mg (10 mL), OTHER, ONCE, 1 dose, On Sat05/31/22 at 0930 Given05/31/2022 9:30 AM EST50 mgOtherMedication OrderMAR ActionAction DateDose RateSite eptinezumab-jjmr 100 mg in NaCl 0.9% 100 mL (VYEPTI) 100 mg, INTRAVENOUS, at 200 mL/hr, Administer over 30 Minutes, ONCE, 1 dose, On Sis 07/26/22 at 1330,EXP: Administer with 0.2 micron filter. New Bag/Syringe/Mjbvho5407/26/2022 1:37 PM VWN370 mg200 mL/hrMedication OrderMAR ActionAction DateDoseRateSite eptinezumab-jjmr 100 mg in NaCl 0.9% 100 mL (VYEPTI) 100 mg, INTRAVENOUS, at 200 mL/hr, Administer over 30 Minutes, ONCE, 1 dose, On Sis 10/18/22 at 1400, EXP: Administer with 0.2 micron filter. New Bag/Syringe/[id number]/18/2022 2:02 PM [id number] mg200 mL/hr Chief Complaint SwallowSwallowSwallowFollow up visit for inability to tolerate CPAPSwallow Patient is here for post opPatient is here for follow up Chief Complaint and Reason for Visit Chief Complaint Diarrhea Chief Complaint Diarrhea/Hiatal Misael is//Ref Ahmet Diarrhea R10.9 R19.7 Chief Complaint Admit Date R26.9 January 29, 2025 7 :29am Additional Source Comments (unrecognized sect ion and [...] section and content) DATE CREATED AUTHOR 05/02/2018 [facility] DATE CREATED AUTHOR AUTHOR'S ORGANIZ ATION 03/12/2020 [facility] DATE CREATED AUTHOR AUTHOR'S ORGANIZ ATION 05/25/2021 [facility] DATE CREATED AUTHOR AUTHOR'S ORGANIZ ATION 12/23/2021 [facility] DATE CREATED AUTHOR AUTHOR'S ORGANIZ ATION 01/17/2022 [facility] DATE CREATED AUTHOR AUTHOR'S ORGANIZ ATION 04/18/2022 [facility] DATE CREATED AUTHOR AUTHOR'S ORGANIZ ATION 06/07/2022 [facility] DATE CREATED AUTHOR AUTHOR'S ORGANIZ ATION 08/28/2022 [facility] DATE CREATED AUTHOR AUTHOR'S ORGANIZ ATION 10/26/2022 [facility] DATE CREATED AUTHOR AUTHOR'S ORGANIZ ATION 12/14/2022 [facility] DATE CREATED AUTHOR AUTHOR'S ORGANIZ ATION 12/14/2022 [facility] DATE CREATED AUTHOR AUTHOR'S ORGANIZ ATION 12/18/2022 [facility] DATE CREATED AUTHOR AUTHOR'S ORGANIZ ATION 02/02/2023 [facility] DATE CREATED AUTHOR AUTHOR'S ORGANIZ ATION 02/06/2023 [facility] DATE CREATED AUTHOR AUTHOR'S ORGANIZ ATION 12/28/2023 [facility] DATE CREATED AUTHOR AUTHOR'S ORGANIZ ATION 03/05/2024 [facility] DATE CREATED AUTHOR AUTHOR'S ORGANIZ ATION 08/06/2024 [facility] DATE CREATED AUTHOR AUTHOR'S ORGANIZ ATION 09/27/2024 [facility] DATE CREATED AUTHOR AUTHOR'S ORGANIZ ATION 10/10/2024 [facility] DATE CREATED AUTHOR AUTHOR'S ORGANIZ ATION 10/23/2024 [facility] DATE CREATED AUTHOR AUTHOR'S ORGANIZ ATION 01/15/2025 [facility] DATE CREATED AUTHOR AUTHOR'S ORGANIZ ATION 02/04/2025 [facility] DATE CREATED AUTHOR AUTHOR'S ORGANIZ ATION 02/12/2025 [facility] DATE CREATED AUTHOR AUTHOR'S ORGANIZ ATION 02/25/2025 [facility] Reason for Visit (unrecogniz ed section and content) ReasonCommentsInfusionHeadacheSpecialtyDiagnoses / ProceduresReferred By Contact Referred To Contact Diagnoses Chronic migraine without aura, with intractable migraine, so stated, with status migrainosus Kassie Richardson, GLASS TINTER.WORKFORCE CONSULTANT [address] [address] Neur Headache [address] [place] [address] Referral IDStatusReasonStart DateExpiration DateVisits RequestedVisits [id number]qcxlcd / ProceduresReferred By ContactReferred To ContactPending ReviewInfusion Therapy Diagnoses Migraine, unspecified, intractable, without status migrainosus Procedures WA INJ MAGNESIUM SULFATE WA LIDOCAINE INJECTION WA DEXAMETHASONE SODIUM PHOS WA DRUGS UNCLASSIFIED INJECTION Mayelin Wolff MD [address] [place] [address] [facility] [address] [place] [address] ReasonCommentsHeadacheReasonCommentsReceived Outside Medical RecordsUHReason CommentsResultsThe [facility]itan HospitalReasonCommentsFollow-upDiarrheaSince hiatal hernia surgery.ReasonCommentsResultsBloomville HospitalSpecialtyDiagnoses / ProceduresReferred By ContactReferred To ContactRadiology Diagnoses Left lower quadrant abdominal pain Procedures CT abdomen pelvis w IV contrast Yossi Chen MD [address] [facility] [address] [place] [address] Referral IDStatusReasonStart DateExpiration DateVisits RequestedVisits [id number] Perform Procedure /[id number]K - Emailed prep on [id number] CommentsOtherDRUG INDUCED SLEEP ENDOSCOPYReasonCommentsFollow UpReasonComments Radiology CTSpecialtyDiagnoses / ProceduresReferred By ContactReferred To ContactCT IMAGING Diagnoses Shortness of breath Procedures CT CHEST WO IVCON CAT SCAN OF CHEST Cameron Harmon MD [address] [place] [address] [address] [place] [address] Referral IDStatusReasonStseville DateExpiration DateVisits RequestedVisits [id number] Auto-Generated Referral /[id number]-rdJryv on both legs the past couple months. Rash has stayed the same. [facility] on 01/29 patient went in for chest pain due to afib but chest pain has stopped since then.ReasonOnset DateCommentsMed [id number] CareReasonCommentsRashBehind both legs, for the past 3-4 weeks. Was using calamine lotion. Notices when he is scratching it will spread.ReasonCommentsRashReasonOnset DateCommentsMed Kdlhhm0305/18/2024 ReasonCommentsMedicare Annual Wellness Visit SubsequentReasonCommentsThyroid ProblemPARATHYROID NEW REF/LABSpecialtyDiagnoses / ProceduresReferred By Contact Referred To ContactEndocrinology Diagnoses Low serum parathyroid hormone (PTH) Procedures WA OFFICE/OUTPATIENT NEW HIGH MDM 60 MINUTES Eleonora Leo NP [address] [place] [address] Phone: tel: fax: Latoya Redding MD [address] [place] [address] Phone: tel: fax: Referral IDStatusReasonStart DateExpiration DateVisits RequestedVisits [id number] Review Specialty Services Required [id number]-kgHWG LABReasonCommentsWeakness, Gen ReasonCommentsDental InjuryPatient had tooth removed two weeks ago Saturday at [facility] for tooth removal but the root traveled to sinus. Sx of right ear pain, and thick yellow mucus that started the next day. Has been taking ibuprofen 600mg 3-4 times daily. [facility] sent a couple of referrals to ENT, one called back but can not get him in till another week.ReasonCommentsURIReason CommentsSinusitisNew Patient : sinusitis / CT doneSpecialtyDiagnoses / ProceduresReferred By ContactReferred To ContactOtolaryngology Diagnoses Acute non-recurrent maxillary sinusitis Abnormal CT scan, sinus Procedures WA OFFICE/OUTPATIENT NEW HIGH MDM 60 MINUTES Radha Burris MD [address] [place] [address] Phone: tel: fax: Lalito Miller DO [address] [place] [address] Phone: tel: fax: Referral IDStatusReasonStart DateExpiration DateVisits RequestedVisits [id number] Specialty Services Required /[id number] week reckReasonCommentsPost-op ReasonCommentsPost-op2 week reckReasonCommentsEstablished PatientFollow UpReason CommentsReceived Outside Medical RecordsReasonCommentsHospital Follow-upReason CommentsMed RefillReasonCommentsFollow-upER Follow-up Ordered Prescriptions (unrec ognized section and content) PrescriptionSigDispensedRefillsStart DateEnd Date ondansetron (ZOFRAN) 4 MG tablet Take 1 tablet by mouth daily as needed for Nausea or Vomiting 30 tablet metroNIDAZOLE (FLAGYL) 500 MG tablet Take 1 tablet by mouth every 8 hours for 2 days 6 tablet ciprofloxacin (CIPRO) 500 MG tablet Take 1 tablet by mouth every 12 hours for 2 days 4 tablet / dilTIAZem (CARDIZEM CD) 120 MG extended release capsule Take 1 capsule by mouth daily 30 capsule oxyCODONE-acetaminophen (PERCOCET) 5-325 MG per tablet Indications:Acute pancreatitis, unspecified complication status, unspecified pancreatitis typeTake 1 tablet by mouth every 8 hours as needed for Pain for up to 3 days. 15 tablet / metroNIDAZOLE (FLAGYL) 500 MG tablet Take 1 tablet by mouth every 8 hours for 15 doses 15 tablet ciprofloxacin (CIPRO) 500 MG tablet Take 1 tablet by mouth every 24 hours for 5 doses 5 tablet Scheduled Active and Recently Administ ered Medications (unrecognized section and content) Medication Order// apixaban (ELIQUIS) tablet 5 mg 5 mg, Oral, 2 TIMES DAILY, First dose on Sat01/03/22 at 2100, Until Discontinued, Indication of Use: A Fib/A Flutter, ANTICOAGULANT * 0026 (Given - Provider: Ritu Sosa RN) * 0855 (Given - Provider: Soco Hdez, CARLOS) * 2033 (Given - Provider: Agata Garcia, CARLOS) * 0853 (Given - Provider: Patty Evans) * 2100 (Due) ciprofloxacin (CIPRO) tablet 500 mg (CANCELED) 500 mg, Oral, EVERY 24 HOURS SCHEDULED (Daily), 5 doses, First dose (after last reorder) on Sat01/03/22 at 0900, Last dose on Sat01/07/22 at 0900, Antimicrobial Indications: Other, Other Abx Indication: acute infected cholecystitis, Dose adjusted for renal function. Do not take with dairy products or calcium- fortified juices. Tube feeding (TF) interaction, obtain physician order to manage. Recommend holding TF for 1 hr before and 1 hr after dose. Due to decreased absorption do not give by J tube. * 0806 (Given - Provider: Roly Delong RN) * 0855 (Given - Provider: Soco Hdez RN) * 0853 (Given - Provider: Patty Evans) ciprofloxacin [...] absorption do not give by J tube. * 2100 (Due) dilTIAZem (CARDIZEM CD) extended release capsule 120 mg 120 mg, Oral, DAILY, First dose on Sat01/03/22 at 0900, Until Discontinued, Do not crush or break. * 1039 (Given - Provider: Roly Delong RN) * 2033 (Given - Provider: Agata Garcia, CARLOS) * 2100 (Due - Provider: Soco Hdez RN) labetalol (NORMODYNE;TRANDATE) injection 20 mg (COMPLETED) 20 mg, IntraVENous, ONCE, 1 dose, On Sis 01/04/22 at 0400, Do not administer if HR less than 60 * 0357 (Given - Provider: Ritu Sosa RN) levothyroxine (SYNTHROID) tablet 150 mcg 150 mcg, Oral, DAILY, First dose on Sat01/03/22 at 0900, Until Discontinued, Tube feeding (TF) interaction, obtain physician order to manage, recommend holding TF for 30 minutes before and after dose. * 1038 (Given - Provider: Roly Delong RN) * 2032 (Given - Provider: Agata Garcia RN) * 2099 (Due - Provider: Soco Hdez RN) metronidazole (FLAGYL) 500 mg in 0.9% NaCl 100 mL IVPB premix (COMPLETED) 500 mg, IntraVENous, EVERY 8 HOURS, 3 doses, First dose on Sat01/02/22 at 1530, Last dose on Sat01/03/22 at 0730, Antimicrobial Indications: Surgical Prophylaxis * 0049 (Stopped - Provider: Ritu Sosa RN) * 0806 (New Bag - Provider: Roly Delong RN) * 0906 (Stopped - Provider: Roly Delong RN) metroNIDAZOLE (FLAGYL) tablet 500 mg 500 mg, Oral, EVERY 8 HOURS SCHEDULED (3 times per day), 15 doses, First dose on Sat01/03/22 at 2100, Last dose on Sat01/08/22 at 1400, Antimicrobial Indications: Other, Other Abx Indication: acute infected cholecystitis * 2027 (Given - Provider: Ritu Sosa RN) * 0429 (Given - Provider: Ritu Sosa RN) * 1444 (Given - Provider: Soco Hdez RN) * 220 (Given - Provider: Agata Garcia, CARLOS) * 0537 (Given - Provider: Agata Garcia, CARLOS) * 1355 (Given - Provider: Patty Evans) * 2200 (Due) pramipexole (MIRAPEX) tablet 2 mg 2 mg, Oral, NIGHTLY, First dose (after last modification) on Sat01/04/22 at 2100, Until Discontinued, Give 2-3 hours before bedtime. * 2099 (Given - Provider: Ritu Sosa RN) * 2032 (Given - Provider: Agata Garcia RN) * 2099 (Due) sodium chloride flush 0.9 % injection 5-40 mL 5-40 mL, IntraVENous, EVERY 12 HOURS SCHEDULED (2 times per day), First dose on Sat01/01/22 at 0900, Until Discontinued, For Line Patency: Peripheral IV = 5 mL; Midline or Central Line = 10 mL/lumen.If following IV push medication, administer flush at same rate as the IV push. Flush volume is determined by type of infusion therapy being given. For non-viscous solutions use: Peripheral IV = 5 mL Midline or Central Line = 10 mL/lumen For viscous solutions (i.e. blood components, parenteral nutrition, contrast media, or after obtaining blood sample) use: Peripheral IV = 10 mL Midline or CentralLine = 20 mL/lumen * 0743 (Not Given - Provider: Roly Delong RN - Reason: Contraindicated) * 2028 (Given - Provider: Ritu Sosa RN) * 09 (Not Given - Provider: Soco Hdez RN - Reason: IV Fluid Infusing) * 2032 (Not Given - Provider: Agata Garcia RN - Reason: IV Fluid Infusing) * 09 (Not Given - Provider: Soco Hdez RN - Reason: IV Fluid Infusing) * 2100 (Due) Medication Order// 0.9 % sodium chloride infusion (CANCELED) IntraVENous, at 100 mL/hr, CONTINUOUS, Starting on Sat01/04/22 at 1315 * 1327 (New Bag - Provider: Soco Hdez RN) * 1523 (Stopped - Provider: Soco Hdez RN) lactated ringers infusion (CANCELED) IntraVENous, at 150 mL/hr, CONTINUOUS, Starting on Sat01/01/22 at 1200 * 0355 (New Bag - Provider: Ritu Sosa RN) sodium bicarbonate 75 mEq in sodium chloride 0.45 % 1,000 mL infusion (CANCELED) IntraVENous, at 100 mL/hr, CONTINUOUS, Starting on Sat01/03/22 at 1130 * 1239 (New Bag - Provider: Roly Delong RN) * 0027 (New Bag - Provider: Ritu Sosa RN) * 1125 (New Bag - Provider: Soco Hdez RN) Medication Order/ 0.9 % sodium chloride infusion IntraVENous, at [...] is ineffective or cannot take oral. Do Notgive oral and IV within 1 hour of [...] mg from all sources in 24 hours. * 0353 (Given - Provider: Ritu Sosa RN) * 0806 (See Alternative - Provider: Roly Delong RN) * 1238 (Given - Provider: Roly Delong RN) * 1700 (Given - Provider: Roly Delong RN) * 0429 (Given - Provider: Ritu Sosa RN) * 1028 (Given - Provider: Soco Hdez RN) * 1456 (Given - Provider: Soco Hdez RN) * 2206 (Given - Provider: Agata Garcia RN) * 0326 (Given - Provider: Agata Garcia RN) * 0716 (Given - Provider: Agata Garcia RN) * 1338 (Given - Provider: Soco Hdez RN) oxyCODONE-acetaminophen (PERCOCET) 5-325 MG per tablet 2 tablet(Linked Group 3) Mg/kg dosing is based on the oxycodone component., 2 tablet, Oral, EVERY 4 HOURS PRN, Starting on Sat01/02/22 at 2245, Until Discontinued, Pain Severe (7-10), Maximum dose of acetaminophen is 4000 mgfrom all sources in 24 hours. * 0353 (See Alternative - Provider: Ritu Sosa RN) * 0806 (Given - Provider: Roly Delong RN) * 1238 (See Alternative - Provider: Roly Delong RN) * 1700 (See Alternative - Provider: Roly Delong RN) * 0429 (See Alternative - Provider: Ritu Sosa RN) * 1028 (See Alternative - Provider: Soco Hdez RN) * 1456 (See Alternative - Provider: Soco Hdez RN) * 2206 (See Alternative - Provider: Agata Garcia RN) * 0326 (See Alternative - Provider: Agata Garcia RN) * 0716 (See Alternative - Provider: Agata Garcia RN) * 1338 (See Alternative - Provider: Soco Hdez RN) [...] For viscous solutions (i.e. blood components, parenteral nutrition,contrast media, or after obtaining blood sample) use: Peripheral IV = 10 mL Midline or Central Line= 20 mL/lumen Order Group 1: HYDROmorphone (DILAUDID) injection 0.25 [...] within 1 hour of each other unless specificallyordered.
Or HYDROmorphone (DILAUDID) injection 0.5 mgJump to [...] 1 hour of each other unless specifically or dered.
Group 2: ondansetron (ZOFRAN-ODT) disintegrating tablet 4 [...] Sat01/02/22 at 2245, Until Discontinued, Pain Severe (7- 10)
Maximum dose of acetaminophen is 4000 mg from all sources in 24 hours.
Care Teams (unrecognized sec tion and content) Team MemberRelationshipSpecialtyStart DateEnd Date Radha Price MD [address] [place] [address] [id number] PCP - GeneralFamily Medicine10/01/17Team MemberRelationshipSpecialtyStart DateEnd Date Radha Burris MD [address] [place] [address] PCP - GeneralInternal Medicine01/14/20 Esther Grey, DO [address] [place], [place] [address] IyirgjzuiZcavcavqfiyrdzfwr77/6/20Team MemberRelationshipSpecialtyStart DateEnd Date Radha Burris [address] [place] [address] PCP - GeneralFamily Medicine10/09/17 Elian Ceballos MD [address] [facility] [place] [address] Primary Staff PhysicianCardiology12/01/20 Herminia Roland MD [address] [facility] [place] [address] Primary Staff NetldzshfBdjfjjfirc96/13/21Team MemberRelationshipSpecialtyStart DateEnd Date Radha Burris [address] [place] [address] PCP - GeneralFamily Medicine10/09/17 Elian Ceballos MD [address] [facility] [place] [address] Primary Staff PhysicianCardiology12/01/20 Herminia Roland MD [address] [facility] [address] Primary Staff PwrzcnfhbSdaucszkrh11/13/21Team MemberRelationshipSpecialtyStart DateEnd Date Radha Burris [address] [place] [phone] PCP - Generalmily Medicine10/09/17 Elian Ceballos MD [address] [facility] [place] [address] Primary Staff PhysicianCardiology12/01/20 Herminia Roland MD [address] [place] [address] Primary Staff AfpwjmrfxJerocvvvxi79/13/21Team MemberRelationshipSpecialtyStart DateEnd Date Radha Burris [address] [place] [phone] PCP - GeneralFamily Medicine10/09/17 Elian Ceballos MD [address] [place] [address] Primary Staff PhysicianCardiology12/01/20 Herminia Roland MD [address] [place] [address] Primary Staff TeriqaeprOgfjjcqhwo64/13/21Team MemberRelationshipSpecialtyStart DateEnd Date Radha Burris [address] [place] [address] PCP - GeneralFamily Medicine10/09/17 Elian Ceballos MD [address] [facility] [place] [address] Primary Staff PhysicianCardiology12/01/20 Herminia Roland MD [address] [place] [address] Primary Staff JghvhktzyWnxbgbpara30/13/21Te MemberRelationshipSpecialtyStart DateEnd Date Radha Burris [address] [place] [phone] PCP - GeneralFamily Medicine10/09/17 Elian Ceballos MD [address] [place] [address] Primary Staff PhysicianCardiology12/01/20 Herminia Roland MD [address] [place] [address] Primary Staff QraadfnkdIjfkvwtbqc29/13/21Team MemberRelationshipSpecialtyStart DateEnd Date Radha Burris [address] [place] [address] PCP - GeneralFamily Medicine10/09/17 Elian Ceballos MD [address] [place] [address] Primary Staff PhysicianCardiology12/01/20 Herminia Roland MD [address] [place] [address] Primary Staff FhwqnwniaQefokhilri67/13/21Team MemberRelationshipSpecialtyStart DateEnd Date Radha Burris [address] [place] [address] PCP - GeneralFamily Medicine10/09/17 Elian Ceballos MD [address] [place], [place] [address] Primary Staff PhysicianCardiology12/01/20 Herminia Roland MD [address] [place] [address] Primary Staff GrhhxlcpeHzwqbpeabc65/13/21Team MemberRelationshipSpecialtyStart DateEnd Date Radha Burris [address] [place] [address] PCP - GeneralFamily Medicine10/09/17 Elian Ceballos MD [address] [place], [place] [id number] Primary Staff PhysicianCardiology12/01/20 Herminia Roland MD [address] [place] [address] Primary Staff WhctetfraSfhuulrtlz53/13/21Team MemberRelationshipSpecialtyStart DateEnd Date Radha Burris [address] [place] [address] PCP - GeneralFamily Medicine10/09/17 Elian Ceballos MD [address] [place] [address] Primary Staff PhysicianCardiology12/01/20 Herminia Roland MD [address] [place] [address] Primary Staff RzbrtjebyIskalscjti18/13/21Team MemberRelationshipSpecialtyStart DateEnd Date Radha Burris [address] [place] [address] PCP - [facility]ally Medicine10/09/17 Elian Ceballos MD [address] [place] [address] Primary Staff PhysicianCardiology12/01/20 Herminia Roland MD [address] [place], [place] [address] Primary Staff BxziegqxxOibrppeqvp83/13/21Team MemberRelationshipSpecialtyStart DateEnd Date Radha Burris MD [address] [address] PCP - Abnzmed92/1/20Team MemberRelationshipSpecialtyStart DateJeff[facility] Radha Burris [address] [place] [address] PCP - GeneralFasaint john [facility] Medicine10/09/17 Elian Ceballos MD [address] [place] [address] Primary Staff PhysicianCardiology12/01/20 Herminia Roland MD [address] [place] [address] Primary Staff MfibvrfsqYiwayzwsxu81/13/21Team MemberRelationshipSpecialtyStart DateJeff[facility] Center Radha Burris [address] [place] [address] PCP - [facility] Medicine10/09/17 Elian Ceballos MD [address] [place] [address] Primary Staff PhysicianCardiology12/01/20 Herminia Roland MD [address] [place] [address] Primary Staff XhznmhfrcIzimswgbem25/13/21Team MemberRelationshipSpecialtyStart End Date Radha Burris MD [address] [place] [address] PCP - Asjyjmw92/1/20Team MemberRelationshipSpecialtyStart DateEnd Date Radha Burris MD [address] [place] [address] PCP - Axxsxfh65/1/20Team MemberRelationshipSpecialtyStart DateEnd Date Radha Burris MD [address] [place] [address] PCP - Qklaalr33/1/20 Team Status: Active Member Role Status Dates Radha Burris MD Primary Care Provide r Active Team Status: Inactive Member Role Status Dates Radha Burris MD Primary Care Provide r Active Imad Asaad , MDAttending ProviderActiveTeam MemberRelationshipSpecialtyStart DateEnd Date Radha Burris MD [address] [place] [address] PCP - GeneralInternal Medicine01/14/20 Esther Grey DO [address] [place] [address] [place] [address] ZznycalbuHnrohmfzzjcwkhexo58/6/20Team MemberRelationshipSpecialtyStart DateEnd Date Radha Burris [address] [place] [address] PCP - GeneralFamily Medicine10/09/17 Elian Ceballos MD [address] [place] [address] Primary Staff PhysicianCardiology12/01/20 Herminia Roland MD [address] [facility] [address] Primary Staff WvfwvhkhdNjdvuxlurd20/13/21Team MemberRelationshipSpecialtyStart DateEnd Date Radha Burris MD [address] [place] [address] PCP - [facility]09/13/22 Radha Burris MD [address] [place] [address] PCP - GeneralFamily Medicine09/20/22 Team Status: Inactive Member Role Status Dates Charlene Soria MD Attending Provider Active Start: March 20, 2023 End: March 20, 2023 Team Status: Inactive Member Role Status Dates Radha Burris MD Primary Care Provider Active Start: April 162022 End: April 16, 2023ImaLenny Bai ProviderActiveStart: April 16, 2023 End: April 16, 2023 Team Status: Inactive Member Role Status Dates Radha Burris MD Primary Care Provider Active Start: June 102023 End: June 10, 2023Imad Lenny Soria ProviderActiveStart: June 10, 2023 End: June 10, 2023Team MemberRelationshipSpecialtyStart DateEnd Radha Burris MD [address] [place] [address] PCP - GeneralInternal Medicine01/14/20 Esther Grey DO [address] [place] [address] GumxtumcuEirphlokdnzlfymzl29/6/20 Name Effective Dates (start - stop) Status Members No Information Team MemberRelationshipSpecialtyStart DateEnd Date Radha Burris MD [address] [place] [address] PCP - [facility]09/13/22 Radha Burris MD [address] [place] [address] PCP - [facility]09/20/22Te MemberRelationshipSpecialtyStart DateEnd Radha Burris MD [address] [place] [address] PCP - [facility]09/13/22 Radha Burris MD [address] [place] [address] PCP - [facility]09/20/22Te MemberRelationshipSpecialtyStart DateEnd Radha Burris MD [address] [place] [address] PCP - [facility]09/13/22 Radha Burris MD [address] [place] [address] PCP - [facility]09/20/22Te MemberRelationshipSpecialtyStart End Radha Burris MD [address] [place] [address] PCP - [facility]09/13/22 Radha Burris MD [address] [place] [address] PCP - [facility]09/20/22Team MemberRelationshipSpecialtyStart DateEnd Date Radha Burris MD [address] [place] [address] PCP - [facility]09/13/22 Radha Burris MD [address] [place] [address] PCP - [facility]09/20/22Te MemberRelationshipSpecialtyStart DateEnd Date Radha Burris MD [address] [place] [address] PCP - [facility]09/13/22 Radha Burris MD [address] [place] [address] [facility] - [facility]09/20/22Te MemberRelationshipSpecialtyStart DateEnd Date Radha Burris MD [address] [place] [address] PCP - [facility]09/13/22 Radha Burris MD [address] [place] [address] [facility] - [facility]09/20/22Te MemberRelationshipSpecialtyStart DateEnd Date Radha Burris MD [address] [place] [address] PCP - [facility]09/13/22 Radha Burris MD [address] [place] [address] PCP - GeneralFamily Medicine09/20/22Team MemberRelationshipSpecialtyStart DateEnd Date Radha Burris MD [address] [place] [address] PCP - [facility]09/13/22 Radha Burris MD [address] [place] [address] PCP - Generalmily Medicine09/20/22Team MemberRelationshipSpecialtyStart DateEnd Date Radha Burris MD [address] [place] [address] PCP - [facility]09/13/22 Radha Burris MD [address] [place] [address] PCP - Generalmi Medicine09/20/22Te MemberRelationshipSpecialtyStart DateEnd Date Radha Burris MD [address] [place] [address] PCP - [facility]09/13/22 Radha Burris MD [address] [place] [address] [facility] - [facility]/20/22Team MemberRelationshipSpecialtyStart DateEnd Date Radha Burris MD [address] [place] [address] PCP - [facility]09/13/22 Radha Burris MD [address] [place] [address] PCP - GeneralFamily Medicine09/20/22Team MemberRelationshipSpecialtyStart DateEnd Date Radha Burris MD [address] [place] [address] PCP - [facility]09/13/22 Radha Burris MD [address] [place] [address] PCP - Generalmily Medicine09/20/22Team MemberRelationshipSpecialtyStart DateEnd Radha Burris MD [address] [place] [address] PCP - Generalmily Medicine09/20/22Te MemberRelationshipSpecialtyStart DateEnd Date Radha Burris MD [address] [place] [address] PCP - GeneralFamily Medicine09/20/22 Radha Burris MD [address] [place] [address] PCP - [facility]06/05/24Te MemberRelationshipSpecialtyStart DateEnd Date Radha Burris MD [address] [place] [address] PCP - [facility]09/20/22 Radha Burris MD [address] [place] [address] PCP - [facility]06/05/24Team MemberRelationshipSpecialtyStart DateEnd Date Radha Burris MD [address] [place] [address] [facility] - [facility]09/20/22 Radha Burris MD [address] [place] [address] PCP - [facility]06/05/24Team MemberRelationshipSpecialtyStart DateEnd Date Radha Burris MD [address] [place] [address] PCP - [facility] Medicine09/20/22 Radha Burris MD [address] [place] [address] PCP - [facility]06/05/24 Shashi Pina DO [address] [place] [address] Referring PhysicianNeurology06/22/24Team MemberRelationshipSpecialtyStart DateEnd Date Radha Burris MD [address] [place] [address] PCP - [facility] Medicine09/20/22 Radha Burris MD [address] [place] [address] PCP - [facility]06/05/24 Shashi Pina DO [address] [place] [address] Referring PhysicianNeurology06/22/24Team MemberRelationshipSpecialtyStart DateEnd Date Radha Burris MD [address] [place] [address] PCP - GeneralFamily Medicine09/20/22 Radha Burris MD [address] [place] [address] PCP - [facility]06/05/24 Shashi Pina DO [address] [place] [address] Referring PhysicianNeurology06/22/24Team MemberRelationshipSpecialtyStart DateEnd Date Radha Burris MD [address] [place] [address] PCP - GeneralFamily Medicine09/20/22 Shashi Pina DO [address] [place] [address] Referring PhysicianNeurology06/22/24Team MemberRelationshipSpecialtyStart DateEnd Date Radha Burris MD [address] [place] [address] PCP - GeneralFamily Medicine09/20/22 Shashi Pina DO [address] [place] [address] Referring PhysicianNeurology06/22/24Team MemberRelationshipSpecialtyStart DateEnd Date Radha Burris MD [address] [place] [address] PCP - GeneralFamily Medicine09/20/22 Shashi Pina DO [address] [address] Referring PhysicianNeurology06/22/24Team MemberRelationshipSpecialtyStart DateEnd Date Radha Burris MD [address] [place] [address] PCP - GeneralFamily Medicine09/20/22 Shashi Pina DO [address] [address] Referring PhysicianNeurology06/22/24Team MemberRelationshipSpecialtyStart DateEnd Date Radha Burris MD [address] [place] [address] PCP - GeneralFamily Medicine09/20/22 Shashi Pina DO [address] [address] Referring PhysicianNeurology06/22/24Team MemberRelationshipSpecialtyStart DateEnd Date Radha Burris MD [address] [place] [address] PCP - GeneralFamily Medicine09/20/22 Shashi Pina DO [address] [address] Referring PhysicianNeurology06/22/24Team MemberRelationshipSpecialtyStart DateEnd Date Radha Burris MD [address] [place] [address] PCP - GeneralFamily Medicine09/20/22 Shashi Pina DO [address] [address] Referring PhysicianNeurology06/22/24Team MemberRelationshipSpecialtyStart DateEnd Date Radha Burris MD [address] [place] [address] PCP - [facility]09/20/22 Shashi Pina DO [address] [address] Referring PhysicianNeurology06/22/24Team MemberRelationshipSpecialtyStart DateEnd Date Radha Burris MD [address] [place] [address] PCP - GeneralFamily Medicine09/20/22 Shashi Pina DO [address] [address] Referring PhysicianNeurology06/22/24Team MemberRelationshipSpecialtyStart DateEnd Date Radha Burris MD [address] [place] [address] PCP - GeneralFamily Medicine09/20/22 Shashi Pina DO [address] [place] [address] Referring PhysicianNeurology06/22/24Team MemberRelationshipSpecialtyStart DateEnd Date Radha Burris MD [address] [facility] [place] [address] PCP - GeneralFamily Medicine09/20/22 Shashi Pina DO [address] [place] [address] Referring PhysicianNeurology06/22/24Team MemberRelationshipSpecialtyStart DateEnd Date Radha Burris MD [address] [facility] [place] [address] PCP - GeneralFamily Medicine09/20/22 Shashi Pina DO [address] [place] [phone] Referring PhysicianNeurology06/22/24Team MemberRelationshipSpecialtyStart DateEnd Radha Burris MD [address] [facility] [place] [address] PCP - Generalmily Medicine09/20/22 Shashi Pina DO [address] [address] Referring PhysicianNeurology06/22/24Team MemberRelationshipSpecialtyStart DateEnd Date Radha Burris MD [address] [facility] [place], [place] [address] PCP - GeneralFamily Medicine09/20/22 Shashi Pina DO [address] [address] Referring PhysicianNeurology06/22/24Team MemberRelationshipSpecialtyStart DateEnd Date Radha Burris MD [address] [place], [place] [id number] PCP - GeneralFamily Medicine09/20/22 Shashi Pina DO [address] [facility] [address] [place] [address] Referring PhysicianNeurology06/22/24Team MemberRelationshipSpecialtyStart End Radha Burris [address] [place] [address] PCP - GeneralFamily Medicine10/09/17 Elian Ceballos MD [address] [place] [address] Primary Staff PhysicianCardiology12/01/20 Herminia Roland MD [address] [place] [address] Primary Staff [id number]/13/21Team MemberRelationshipSpecialtyStart DateEnd Date Radha Burris MD [address] [place] [id number] PCP - GeneralFamily Medicine10/09/17 Elian Ceballos MD [address] [place] [address] Primary Staff PhysicianCardiology12/01/20 Herminia Roland MD [address] [place] [address] Primary Staff DlmujymrzVtpivmphxl33/13/21Team MemberRelationshipSpecialtyStart End Radha Burris MD [address] [place] [address] PCP - GeneralFamily Medicine10/09/17 Elian Ceballos MD [address] [place] [address] Primary Staff PhysicianCardiology12/01/20 Herminia Roland MD [address] [place] [address] Primary Staff [id number]/13/21Team MemberRelationshipSpecialtyStart End Radha Burris MD [address] [place], [place] [address] PCP - GeneralFamily Medicine09/20/22 Shashi Pina DO [address] [place] [address] Referring PhysicianNeurology06/22/24Team MemberRelationshipSpecialtyStart End Radha Burris MD [address] [place] [address] PCP - GeneralFamily Medicine10/09/17 Elian Ceballos MD [address] [facility] [place] [address] Primary Staff PhysicianCardiology12/01/20 Herminia Roland MD [address] [place] [address] Primary Staff RnbzgoffgAdmcvgtalj07/13/21Team MemberRelationshipSpecialtyStart DateEnd Date Radha Burris MD [address] [place] [address] PCP - GeneralFamily Medicine09/20/22 Shashi Pina DO [address] [place], [place] [address] Referring PhysicianNeurology06/22/24Team MemberRelationshipSpecialtyStart DateEnd Date Radha Burris MD [address] [place] [address] [facility]09/20/22 Shashi Pina DO [address] [place] [phone] Referring PhysicianNeurology06/22/24Team MemberRelationshipSpecialtyStart DateEnd Date Radha Burris MD [address] [place] [address] [facility] - [facility]09/20/22 Shashi Pina DO [address] [place] [phone] Referring PhysicianNeurology06/22/24 Team Status: Inactive Member Role Status Dates Radha Burris MD Primary Care Provider Active Start: January End: January 29, 2025Umar Nathaniel , MDAttending ProviderActiveStart: January 29, 2025 End: January 29, 2025Team MemberRelationshipSpecialtyStart DateEnd Date Radha Burris MD [address] [place] [address] PCP - [facility]09/13/ Radha Burris MD [address] [place] [address] PCP - GeneralFamily Medicine09/20/22 Radha Burris MD [address] [place] [address] PCP - [facility] Shashi Pina DO [address] [place] [address] Referring PhysicianNeurology06/22/24Team MemberRelationshipSpecialtyStart DateEnd Date Radha Burris MD [address] [place] [address] PCP - [facility]09/13/ Radha Burris MD [address] [place] [address] [facility] - [facility]09/20/22 Radha Burris MD [address] [place] [address] PCP - [facility] Shashi Pina DO [address] [place] [address] Referring PhysicianNeurology06/22/24Team MemberRelationshipSpecialtyStart DateEnd Radha Burris MD [address] [place] [address] PCP - GeneralInternal Medicine01/14/20 Esther Grey DO [address] [place] [address] [place] [address] [id number]y51/6/20 Source Comments (unrecognize d section and content) In the event this informatio n is protected by the Federal Confidentiality of Alcohol and Drug Abuse Patient Records regulations: The Federal rules restrict any use of the information to criminally investigate or prosecute any alcohol or drug abuse patient.[facility] HospitalIn the event this information is protected by the Federal Confidentiality of Alcohol and Drug Abuse Patient Records regulations: The Federal rules restrict any use of the information to criminally investigate or prosecute any alcohol or drug abuse patient.[facility] HospitalIn the event this information is protected by the Federal Confidentiality of Alcohol and Drug Abuse Patient Records regulations: The Federal rules restrict any use of the information to criminally investigate or prosecute any alcohol or drug abuse patient.[facility] HospitalIn the event this information is protected by the Federal Confidentiality of Alcohol and Drug Abuse Patient Records regulations: The Federal rules restrict any use of the information to criminally investigate or prosecute any alcohol or drug abuse patient.[facility] HospitalIn the event this information is protected by the Federal Confidentiality of Alcohol and Drug Abuse Patient Records regulations: The Federal rules restrict any use of the information to criminally investigate or prosecute any alcohol or drug abuse patient.[facility] HospitalIn the event this information is protected by the Federal Confidentiality of Alcohol and Drug Abuse Patient Records regulations: The Federal rules restrict any use of the information to criminally investigate or prosecute any alcohol or drug abuse patient.[facility] HospitalIn the event this information is protected by the Federal Confidentiality of Alcohol and Drug Abuse Patient Records regulations: The Federal rules restrict any use of the information to criminally investigate or prosecute any alcohol or drug abuse patient.[facility] HospitalIn the event this information is protected by the Federal Confidentiality of Alcohol and Drug Abuse Patient Records regulations: The Federal rules restrict any use of the information to criminally investigate or prosecute any alcohol or drug abuse patient.[facility] HospitalIn the event this information is protected by the Federal Confidentiality of Alcohol and Drug Abuse Patient Records regulations: The Federal rules restrict any use of the information to criminally investigate or prosecute any alcohol or drug abuse patient.[facility] HospitalIn the event this information is protected by the Federal Confidentiality of Alcohol and Drug Abuse Patient Records regulations: The Federal rules restrict any use of the information to criminally investigate or prosecute any alcohol or drug abuse patient.[facility] HospitalIn the event this information is protected by the Federal Confidentiality of Alcohol and Drug Abuse Patient Records regulations: The Federal rules restrict any use of the information to criminally investigate or prosecute any alcohol or drug abuse patient.[facility] HospitalIn the event this information is protected by the Federal Confidentiality of Alcohol and Drug Abuse Patient Records regulations: The Federal rules restrict any use of the information to criminally investigate or prosecute any alcohol or drug abuse patient.[facility] HospitalIn the event this information is protected by the Federal Confidentiality of Alcohol and Drug Abuse Patient Records regulations: The Federal rules restrict any use of the information to criminally investigate or prosecute any alcohol or drug abuse patient.[facility] HospitalIn the event this information is protected by the Federal Confidentiality of Alcohol and Drug Abuse Patient Records regulations: The Federal rules restrict any use of the information to criminally investigate or prosecute any alcohol or drug abuse patient.[facility] HospitalIn the event this information is protected by the Federal Confidentiality of Alcohol and Drug Abuse Patient Records regulations: The Federal rules restrict any use of the information to criminally investigate or prosecute any alcohol or drug abuse patient.[facility] HospitalIn the event this information is protected by the Federal Confidentiality of Alcohol and Drug Abuse Patient Records regulations: The Federal rules restrict any use of the information to criminally investigate or prosecute any alcohol or drug abuse patient.[facility] HospitalIn the event this information is protected by the Federal Confidentiality of Alcohol and Drug Abuse Patient Records regulations: The Federal rules restrict any use of the information to criminally investigate or prosecute any alcohol or drug abuse patient.[facility] HospitalIn the event this information is protected by the Federal Confidentiality of Alcohol and Drug Abuse Patient Records regulations: The Federal rules restrict any use of the information to criminally investigate or prosecute any alcohol or drug abuse patient.[facility] HospitalIn the event this information is protected by the Federal Confidentiality of Alcohol and Drug Abuse Patient Records regulations: The Federal rules restrict any use of the information to criminally investigate or prosecute any alcohol or drug abuse patient.[facility] HospitalIn the event this information is protected by the Federal Confidentiality of Alcohol and Drug Abuse Patient Records regulations: The Federal rules restrict any use of the information to criminally investigate or prosecute any alcohol or drug abuse patient.[facility] HospitalIn the event this information is protected by the Federal Confidentiality of Alcohol and Drug Abuse Patient Records regulations: The Federal rules restrict any use of the information to criminally investigate or prosecute any alcohol or drug abuse patient.[facility] Goals (unrecognized section and content) Goals may be documented in a n alternate section FOR RECORDS PERTAINING TO PATIENTS WHO ARE [...] BE BASED ON THE PRIMARY CLINICAL RECORDS. [facility] [employer] [facility]. provides no warranty or guarantee of the accuracy or completeness of information in this document.
== END 2025-03-15 12:16 | disposition home or self-care (01) ==
PROVIDERS: Emergency Provider Emergency Medicine; PCP Family Medicine
DX: R07.2 Precordial pain (principal); Z87.891 Personal history of nicotine dependence
CPT/HCPCS: 36415; 71045; 80053; 84484; 85025; 85378; 93005; 99285

== ENCOUNTER 2025-03-25 07:00 | Outpatient (OUT) | payer MEDICARE, OTHER, SELFPAY ==
--- OUTSIDE RECORDS SUMMARY | 2018-03-06 08:10 | XMS_ITS | Continuity of Care Document ---
Author Organization [facility] Address [address] [place] [address] Phone Care Team Providers Care Fly Setter Name Role Phone Sue Sanchez Unavailable Unavailable Allergies, Adverse Reactions, Alerts Substance Reaction Status Criticality PENICILLIN Active No Information Medications Medication Instructions Dosage Effective Dates (start - stop) Status Comments RETAINE HPMC (unknown strength) TID OS Not Available - Active Uloric 40 mg tablet - Active Synthroid 125 mcg tablet - Active Mirapex 1 mg tablet - Active Zanaflex 4 mg capsule - Active amlodipine 5 mg-benazepril 10 mg capsule - Active Procedures Procedure Date Jan Medical Eye Exam, Est With Tx 8 Fluorescein Angiography Fundus Photos Medical Eye Exam, Established 8 Office Visit, Low Postop Follow-up Visit Postop Follow-up Visit Postop Follow-up Visit EYE SERVICE OR PROCEDURE EYE SERVICE OR PROCEDURE Ultrasound B Est FU Visit High Ultrasound B OCT Medical Eye Exam, Est With Tx 8 [facility] Jan New Patient, High New Patient, High OCT Advance Directives Directive Yes / No Effective Date File Name No Information Encounters Encounter Description Practice Location Reason(s) For Visit Diagnoses Date Provider Providers Copied on Encounter [facility] , [address] [place], [address], [place] tel:[phone] R[facility] [place] vision changes (chief complaint) Total retinal detachment, left eyeKidney diseaseVitreous degeneration, right eyeAge-related nuclear cataract, right eyePresence of intraocular lensPuckering of macula, bilateralOther migraine, intractable, without status migrainosus 8 Laura Rogers. [address], [place], [place], [id number] , [place]. tel:[phone] Referring Provider: Inder Castellanos, [facility] [address], [place], [address]. tel:[phone] [facility] , [address] [place], [address], [place] tel:[phone] R[facility] [place] TRD (chief complaint)in creased vision (chief complaint)de nies vision change (chief complaint) Total retinal detachment, left eyeVitreous hemorrhage, left eyeMacular Pucker ODMacular Edema ODKidney diseaseVitreous degeneration, right eye Sep- 8 Laura Rogers. [address], [place], [place], [id number] , [place]. tel:[phone] Referring Provider: Sue Sanchez [address], [place], [address] . tel:[phone] Office Visit, [facility] , [address] [place], [address], [place] tel:[phone] RVA [place] treated vitreous hemorrhage (chief complaint)in crease in vision (chief complaint)ne w floaters (chief complaint) Total retinal detachment, left eyeVitreous hemorrhage, left eye 8 Laura Rogers. [address], [place], [place], [id number] , [place]. [phone] Referring Provider: Sue Sanchez [address], [place], [address] . tel:[phone] [facility] , [address] [place], [address], [place] tel:[phone] R[facility] [place] treated retinal detachment (chief complaint)de nies vision change (chief complaint) Total retinal detachment, left eyeVitreous hemorrhage, left eye 8 Laura Rogers. [address], [place], [place], [id number] , [place]. [phone] Referring Provider: Sue Sanchez, [address], [place], [address] . tel:[phone] [facility] , [address] [place], [address], [place] tel:[phone] R[facility] [place] retinal detachment (chief complaint)ne w dark spot (chief complaint) Total retinal detachment, left eyeVitreous hemorrhage, left eye 8 Laura Rogers. [address], [place], [place], [id number] , [place]. tel:[phone] Referring Provider: Sue Sanchez [address], [place], [address] . tel:[phone] [facility] , [address] [place], [address], [place] tel:[phone] R[facility] [place] retinal detachment (chief complaint)pa in (chief complaint)s/ p PPV/SB/IOL (chief complaint) Vitreous Hemorrhage OSTotal retinal detachment, left eye 8 Laura Rogers. [address], [place], [place], [id number] , [place]. [phone] Referring Provider: Sue Sanchez, [address], [place], [address] . tel:[phone] [facility] , [address] [place], [address], [place] tel:[phone] R[facility] [place] vitreous hemorrhage (chief complaint)de creased vision (chief complaint)de nies vision changes (chief complaint) Vitreous Hemorrhage OS 8 Laura Rogers. [address], [place], [place], [id number] , [place]. [phone] Referring Provider: Sue Sanchez, [address], [place], [address] . tel:[phone] Est FU Visit High [facility] , [address] [place], [address], [place] tel:[phone] R[facility] [place] vitreous hemorrhage (chief complaint)de crease in vision (chief complaint)fl oaters (chief complaint) Vitreous Hemorrhage OSVitreous degeneration, right eyeKidney diseaseMacular Pucker ODMacular Edema OD 8 Laura Rogers. [address], [place], [place], [id number] , [place]. [phone] Referring Provider: Sue Sanchez, [address], [place], [address] . tel:[phone] [facility] , [address] [place], [address], [place] tel:[phone] RVA Jerry Beckwith Additional Information (chief complaint)vi treous hemorrhage (chief complaint)ne w onset of floaters (chief complaint) Vitreous Hemorrhage OSVitreous Opacities ODKidney diseaseMacular Pucker ODMacular Edema ODCataract, Nuclear Sclerosis OUHypertension 8 Oral Dietz. [address], [place], [place], [id number] , [place]. [phone] Referring Provider: J Luis Louie, [address], [place], [address] . tel:[phone] [facility] , [address] [place], [address], [place] tel:[phone] RVA [place] Vitreous Hemorrhage OS 8 Douglas Marcus. [address], [facility] , [place], [address], [place]. tel:[phone] Referring Provider: Amrit Ospina, [address], [place], [address]. tel:[phone] New Patient, High [facility] , [address] [place], [place], [facility], [place] tel:[phone] RVA [place] vitreous hemorrhage (chief complaint)vi gallo loss (chief complaint)de creased vision (chief complaint) Macular Pucker ODMacular Edema ODVitreous Hemorrhage OSHypertensionCa taract, Nuclear Sclerosis OU 8 Oral Dietz. [address], Suite [facility], [place], [place], [id number] , [place]. tel:[phone] Referring Provider: J Luis Louie, [address], [place], [address] . tel:[phone] New Patient, High [facility] , [address] [place], [address], [place] tel:[phone] R[facility] [place] No Information 8 Oral Dietz. [address], [address] [facility], [place], [place], [id number] , [place]. tel:[phone] Referring Provider: J Luis Louie, [address], [place], [address] . tel:[phone] Family History Family Member Type Diagnosis Age At Onset Problem (finding) Family history of glauc kevin Problem (finding) Family history of catar act Problem (finding) Family history of hyper tension Payers Payer name Insurance type Covered green party ID Authoriza tion(s) No Information Social History Type Description Quantity Date Captured Comments Alcohol Use Details Caffeine Use Details Tobacco Use Status Current non-smoker 16 Smoking Status Never smoker Non-Smoking Tobacco Use Details : No Details Available : No Details Available [id number] SexMale Vital Signs Date / Time: Height Weight BMI Pulse Rate Blood Pressure Temperature Respiratory Rate Body Surface Area Head Circumference Head Circ. Percentile Wt./Mike. Percentile BMI percentile Pulse Ox Inhaled Ox 12:48 PM 132/62 mm[Hg] Chief Complaint And Reason For Visit From encounter dated '03/06/2018 13:10'. vision changes (chief complaint). Description: The 62 year old male presents for evaluation of vision changes in the left eye. Patient reports a pulsating in the center of vision in the left eye 2-3 times daily x 2 weeks intermittently lasting briefly and a few days ago lasting as long as 20 minutes. S/P PPV/SB/IOL in the left eye on 10/15/17 in [facility] for a TRD. Patient reports a suddengray floater in the right eye x 2 months intermittently not affecting the vision. Reason For Referral Reason For Referral No Information History Of Present Illness Encounter Date Complaint History Of Prese nt Illness vision changes The 62 year old male presents for evaluation of vision changes in the left eye. Patient reports a pulsating in the center of vision in the left eye 2-3 times daily x 2 weeks intermittently lasting briefly and a few days ago lasting as long as 20 minutes. S/P PPV/SB/IOL in the left eye on 10/15/17 in [facility] for a TRD. Patient reports a sudden lind floater in the right eye x 2 months intermittently not affecting the vision. TRD The 62 year old male presents for evaluation of TRD s/p repair in the left eye. denies vision change The patient denies vision change in the right eye. increased vision The patient rep orts increased vision in the left eye since last visit. It started about 4 weeks ago . The onset was gradual. It affects both near and far vision. The symptom is constant. The condition is improving. Denies changes OS new floaters The patient repo rts new floaters in the left eye (thick and heavy floaters). It started about 10 days ago. The onset was gradual. Vision is not affected. The symptom is intermittent. The condition is moderate. In addition, the condition is associated with daily activity and chores. Patient reports distortion in the left eye x 10 days suddenly affecting distant vision. Also, patient reports no visual changes in the right eye since his last visit. increase in vision The patient r eports an increase in vision in the left eye. It started about 3 weeks ago . The onset was gradual. It affects both near and far vision. The symptom is constant. The condition is improving. In addition, the condition is associated with daily activity and chores. treated vitreous hemorrhage The 62 year old male presents for a treated vitreous hemorrhage in the left eye. S/P Vit,GFX,Laser on 10/09/17. S/P PPV,SB,IOL in the left eye for a total retinal detahment on 10/15/17. denies vision change Patient den ies vision change in either eye since his last visit 1 week ago. Denies flashes and notes his left eye is very painful. treated retinal detachment The 4 4 year old male presents for evaluation of treated retinal detachment in the left eye. new dark spot The patient comp lains of new dark spot in the left eye from the gas line up. He first noticed it yesterday and it has grown since. He also notes the ache he feels is getting worse. retinal detachment The 62 year o ld male presents for evaluation of treated retinal detachment in the left eye. S/p PPV/SB/IOL with Dr. Hayward on 10-15-17. pain The patient comp lains of a new constant eye ache in the left eye suddenly since awakening this am. The vision is slightly coming back after the surgery every day, except it is a bit worse today all over the field. Also seeing flashes. The patient states the left eye is a bit more red than usual (it was getting better). He is seeing a white light in the middle of the vision since this am. retinal detachment The 62 year o ld male presents for evaluation of S/P repair of retinal detachment in the left eye. s/p PPV/SB/IOL The patient is s /p PPV/SB/IOL in the left eye on 10/15/[address] Hayward at . denies vision changes The patien t denies vision changes in the right eye. decreased vision The patient rep orts decreased vision in the left eye. It started about 7 days ago . The onset was sudden. It caused loss of light perception. The symptom is constant. The condition is worsening. The condition is described as seeing sparkles. In addition, the condition is associated with daily activity and chores. Patient states he's having mild pain in the form of pressure . vitreous hemorrhage The 62 year old male presents for evaluation of vitreous hemorrhage in the left eye. decrease in vision The patient r eports a decrease in vision in the left eye. It started about 6 days ago . The onset was gradual. It affects both near and far vision. The symptom is constant. The condition is severe. In addition, the condition is associated with exercising and bending over. The patient denies flashes, floaters. Patient reports he was seeing a red haze when he looked up but now that is fading. floaters The patient repo rts floaters in the right eye. It started about 1 week ago. The onset was sudden. Vision is not affected. The symptom is constant. The condition is mild. In addition, the condition is associated with daily activity and chores. The patient denies flashes. vitreous hemorrhage The 62 year old male presents for evaluation of vitreous hemorrhage in the left eye. new onset of floaters The patien t complains of new onset of floaters in the right eye x about 4 days ago . The onset was sudden. The symptom is constant. The condition is moderate. The condition is described as causing headaches. Additional Information Patient s rita blood work returned showing stage 3 kidney disease. Patient has appointment on with kidney doctor. decreased vision The patient com plains of decreased vision in the right eye. He is unsure when the condition started. The onset was gradual. It affects both near and far vision. The symptom is constant. The condition is mild. The condition is described as blurring. vision loss The patient comp lains of vision loss in the left eye. It started about 3 days ago . The onset was sudden. It affects both near and far vision. The symptom is constant. The condition is severe. The patient is using TobraDex ointment prescribed by Dr. Castellanos for an infection in the left eye. It started about 1 week ago. vitreous hemorrhage The 62 year old male presents for evaluation of possible vitreous hemorrhage in the left eye. Functional Status Date Functional Assessmen t No Information Instructions Date Instruction Additional Infor jesikaion Return in Related to Total retinal detachment, left eye Impression/Plan Related to Prese nce of intraocular lens Impression/Plan Related to Age-r elated nuclear cataract, right eye Impression/Plan Related to Vitre ous degeneration, right eye Impression/Plan Related to Kidne y disease Impression/Plan Related to Pucke ring of macula, bilateral Impression/Plan Related to Other migraine, intractable, without status migrainosus Impression/Plan Related to Total retinal detachment, left eye Impression/Plan 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 Related to Macular Pucker OD Impression/Plan - -R esolved VH on exam today. Related to Vitreous hemorrhage, left eye Impression/Plan - -s /p PPV/SB/IOL 10/15/[address] Hayward at -Resolved VH on exam today-Okay to return to normal activity-Gas bubble has resorbed-Instructions regarding eye drops were discussed: Patient has D/C'd all PO drops at this time-Call immediately with any sudden vision changes, new/worsening eye pain, or abnormal discharge Related to Total retinal detachment, left eye Follow up - Return i n 6 months for FU OCT OU Related to Total retinal detachment, left eye Return in Related to Total retinal detachment, left eye Impression/Plan - -s /p PPV/SB/IOL 10/15/[address] Hayward at -Improving VH on exam today-No swimming, no heavy lifting (>5 lbs), no repetitive bending, no straining-A hard shield was given to the patient to shield the eye at night-Intravitreal gas bubble will slowly resolve over the next few weeks, normal to see a line in vision-However, if a curtain or vision decline is noted, call immediately-Instructions regarding eye drops were discussed: Patient has D/C'd all PO drops at this time-Call immediately with any sudden vision changes, new/worsening eye pain, or abnormal discharge Related to Total retinal detachment, left eye Impression/Plan - -M uch improved VH on exam today. Related to Vitreous hemorrhage, left eye Follow up - Return i n 1 month for FU FA OU. Related to Total retinal detachment, left eye Return in Related to Total retinal detachment, left eye Impression/Plan - -s /p PPV/SB/IOL 10/15/[address] Hayward at -New/old inferior VH on exam today-Monitor VH for clearing and any sign of re detachment-No sign of inflammation of infection today-continue positioning as per Dr. Hayward-No swimming, no heavy lifting (>5 lbs), no repetitive bending, no straining-A hard shield was given to the patient to shield the eye at night-Intravitreal gas bubble will slowly resolve over the next few weeks, normal to see a line in vision-However, if a curtain or vision decline is noted, call immediately-Instructions regarding eye drops were discussed: Patient has D/C'd all PO drops at this time-Call immediately with any sudden vision changes, new/worsening eye pain, or abnormal discharge Related to Total retinal detachment, left eye Impression/Plan - -N ew/old VH inferiorly on exam 11/01/17-Monitor for clearing and any sign of re detachment Related to Vitreous hemorrhage, left eye Follow up - Return i n 3 weeks for post op exam OS Related to Total retinal detachment, left eye Return in Related to Total retinal detachment, left eye Impression/Plan - -N ew/old VH inferoir on exam today-Monitor for clearing and any sign of re detachment Related to Vitreous hemorrhage, left eye Impression/Plan - -s /p PPV/SB/IOL 10/15/[address] Hayward at -New/old inferior VH on exam today-Monitor VH for clearing and any sign of re detachment-No sign of inflammation of infection today-continue positioning as per Dr. Hayward-No swimming, no heavy lifting (>5 lbs), no repetitive bending, no straining-A hard shield was given to the patient to shield the eye at night-Intravitreal gas bubble will slowly resolve over the next few weeks, normal to see a line in vision-However, if a curtain or vision decline is noted, call immediately-Instructions regarding eye drops were discussed: Continue Pred Acetate QID OS as per Dr. Hayward-Call immediately with any sudden vision changes, new/worsening eye pain, or abnormal discharge Related to Total retinal detachment, left eye Follow up - Keep 10/21 11/06 for post op exam OS. Related to Total retinal detachment, left eye Return in Related to Total retinal detachment, left eye Return in Related to Vitre ous Hemorrhage OS Impression/Plan - -S econdary to RD, see plan #1. Related to Vitreous Hemorrhage OS Impression/Plan - -s /p PPV/SB/IOL 10/15/[address] Hayward at -Retina remains attached today-No sign of inflammation of infection today-continue positioning as per Dr. Hayward-No swimming, no heavy lifting (>5 lbs), no repetitive bending, no straining-A hard shield was given to the patient to shield the eye at night-Intravitreal gas bubble will slowly resolve over the next few weeks, normal to see a line in vision-However, if a curtain or vision decline is noted, call immediately-Instructions regarding eye drops were discussed: Continue Pred Acetate QID OS as per Dr. Hayward-Call immediately with any sudden vision changes, new/worsening eye pain, or abnormal discharge Related to Total retinal detachment, left eye Follow up - Keep 10/21 11/06 with for post op OS Related to Total retinal detachment, left eye Patient to follow up with Dr. Adrian Hayward as directed. Surgery scheduled for 10/09/[address] Sanchez. Return to Dr. Sanchez 10/10/17 for day one post op. Related to Vitreous Hemorrhage OS Impression/Plan - -D ense Vitreous Hemorrhage is present- Bscan today shows dense vitreous hemorrhage with blood layering along posterior hyaloid versus ? shallow RD (moves more like blood)-Cause is unknown due to poor view- no h/o DM- has well-controlled HTN- DDX: GEE, vein occlusion, PVD, RD, tumor- Recommend obtaining UBM to rule out anterior pathology-Advised caution d/t lack of depth perception-Treatment options are observation and vitrectomy surgery-Will need cataract surgery prior to PPV due to blood on posterior capsule- will refer to Dr. Hayward at [facility] for UBM -Risks and benefits of surgery discussed-Recommended patient have anterior scan performed to rule out posterior mass prior to PPV, appointment facilitated for patient with Dr. Adrian Hayward-Patient scheduled for PPV OS with Dr. Sanchez 10/09/17 at 12:30pm Related to Vitreous Hemorrhage OS Follow up - Patient to follow up with Dr. Adrian Hayward as directed. Surgery scheduled for 10/09/[address] Sanchez. Return to Dr. Sanchez 10/10/17 for day one post op. Related to Vitreous Hemorrhage OS Return in Related to Vitre ous Hemorrhage OS Impression/Plan - -D ense Vitreous Hemorrhage is present-No RD noted on B-Scan today-Cause is unknown due to poor view-advised caution d/t lack of depth perception-Treatment options are observation and vitrectomy surgery-Due to worsening vision patient elects to proceed with surgery-Risks and benefits of surgery discussed-Patient scheduled for PPV OS with Dr. Sanchez 10/09/17 Related to Vitreous Hemorrhage OS Follow up - Return for PPV surgery OS with Dr. Sanchez and 10/10/17 for day 1 post op OS. Related to Vitreous Hemorrhage OS Impression/Plan - -S tage 4 Kidney disease-Maintain follow up with Renal Doctor for management Related to Kidney disease Impression/Plan - -n o holes, tears, detachments today-discussed floaters with patient-RD symptoms explained-Mr. 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 Related to Macular Pucker OD Impression/Plan - -M acular Pucker was discussed-Risks and benefits of surgery vs observation were discussed and understood-Vision remains stable in 95% of patients without surgery, but rarely improves-The average improvement in vision following vitrectomy surgery is 50%Observation is best at the present time-Any decrease in vision or new distortion should be reported to one of us promptly. 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 Arnold understands he should call if any problems Related to Vitreous Opacities OD Impression/Plan - -D ense Vitreous Hemorrhage is present-No RD on B-Scan today-Cause is unknown due to poor view-no restrictions-advised caution d/t lack of depth perception-will most likely take at least a few months to clear on own-Treatment options are observation and vitrectomy-Vitrectomy will be considered if further bleeding occurs, or if the hemorrhage makes daily activities difficultFollow with B Scan Related to Vitreous Hemorrhage OS Impression/Plan - -A dvised patient to contact PCP regarding follow up care for blood pressure exceeding 140/90 Related to Hypertension Impression/Plan - -M onitor for progression Related to Cataract, Nuclear Sclerosis OU Impression/Plan - -M acular Edema is mild-Secondary to ERM Related to Macular Edema OD Return in [address] Mixon for follow up exam and OCT. Related to Macular Pucker OD Impression/Plan - -M onitor for progression Related to Cataract, Nuclear Sclerosis OU Impression/Plan - -A dvised patient to contact PCP regarding follow up care for blood pressure exceeding 140/90 Related to Hypertension Impression/Plan - -D ense Vitreous Hemorrhage is present-No RD on B-Scan done at [facility]-Cause is unknown due to poor view-Treatment options are observation and vitrectomy-Vitrectomy will be considered if further bleeding occurs, or if the hemorrhage makes daily activities difficult Related to Vitreous Hemorrhage OS Impression/Plan - -M acular Edema is mild-Secondary to ERM-I will observe at this time-Patient understands we should be notified of any change in vision Related to Macular Edema OD Impression/Plan - -M acular Pucker was discussed-Risks and benefits of surgery vs observation were discussed and understood-Vision remains stable in 95% of patients without surgery, but rarely improves-The average improvement in vision following vitrectomy surgery is 50%-The patient has decided on observation at the present time-Any decrease in vision or new distortion should be reported to one of us promptly. Related to Macular Pucker OD Follow up - Return i n [address] Mixon for follow up exam and OCT. 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 OS. Conditions: s/p PPV/SB/IOL with Dr. Hayward assessment Kidney disease impression Kidney disease: N28.9 8 assessment Vitreous degeneration, right eye impression Vitreous degeneratio n, right eye: H43.811. OD. Conditions: established, stable assessment Age-related nuclear cataract, ri ght eye impression Age-related nuclear cataract, right eye: H25.11. OD. Condition: mild, chronic, stable assessment Presence of intraocular lens Feb impression Presence of intraocu lar lens: Z96.1. OS. Condition: established, stable assessment Puckering of macula, bilateral N impression Puckering of macula, bilateral: H35.373. OS. Condition: mild, chronic, stable assessment Other migraine, intractable, wit hout status migrainosus impression Other migraine, intr actable, without status migrainosus: G43.819. Condition: new diagnosis Patient Care Teams Name Effective Dates (start - stop) Status Members No Information
--- OUTSIDE RECORDS SUMMARY | 2024-03-18 07:45 | XMS_ITS ---
Author Organization The [facility] in [place] Address [address] [place] [address] Care Team Providers Care Cad Drafter Name Role Phone Radha Newton MD Primary Care Provider Larry sauceda Provider, [facility] Unavailable [phone] Encounters Encounter Location Date Provider Diagnosis [facility] [address] [place] [address] 03/18/[address] [facility] Provider Plan Of Treatment No Information Progress Notes * Jayme ARNOLD JR, MDOB:0 1955 (69 yo M)Acc No.[id number]:03/18/2024 UNLOCKED PROGRESS NOTE ASC Surgery Patient: Amita Jayme CABAN JR :?ASC ProviderDOB:1955???Age:68 Y???Sex: MaleDate:4Phone:[phone]:[address] [place] [address] [address], [place], [place]-[address]Pcp:Mayela Ward In:11:18 AM EST Subjective: * Chief Complaints: * * Medical History: Objective: * Vitals: Assessment: Plan: * Treatment: * * Electronic signature of [facility] Provider on 03/25/2025 at 07:02 AM ESTSign off status: PendingVisit Status:?ARR (Check-In) * Provider: Amita SANTORO Provider Date: 05/18/2023 Generated for Printing/Faxing/eTransmitting on:?03/25/2025 07:02 AM EST
--- OUTSIDE RECORDS SUMMARY | 2024-03-18 07:50 | XMS_ITS ---
Author Organization The [facility] in [place] Address [address] [place] [address] Care Team Providers Care Beam Dyer Recessed Vat Name Role Phone Radha Newton MD Primary Care Provider Michelle Leon [phone] REASON FOR VISIT MCANDREI PM, LJ, Dr. Newton, Chronic Diarrhea, Medicare/MMO, 02/16, [place] Encounters Encounter Location Date Provider Diagnosis [facility] [address] [place] [address] 03/18/2024 Michelle Gilmore Plan Of Treatment No Information Progress Notes * Jayme ARNOLD JR MDOB:0 1955 (69 yo M)Acc No.[id number]:03/18/2024 UNLOCKED PROGRESS NOTE Op Note Patient: Amita Jayme CABAN JR :?Michelle Gilmore, MDDOB:1955???Age:68 Y ???Sex:MaleDate:4Phone:[phone]:[address] [place] [address] [address], [facility]Pcp:Mayela Ward Out:03:23 PM EST Subjective: * Chief Complaints: * 1 . LJ YAO, Dr. Newton, Chronic Diarrhea, Medicare/MMO, 02/16, Susan. * Medical History: Objective: * Vitals: Assessment: Plan: * Treatment: * * Electronic signature of Michelle Gilmore MD, [id number] on 03/25/2025 at 07:06 AM EST Sign off status: PendingVisit Status:?CHK (Check Out) * Provider: Liz Gilmore MD Date: 05/18/2023 Generated for Printing/Faxing/eTransmitting on:?03/25/2025 07:06 AM EST
--- NOTE | 2025-03-25 | US_ITS ---
The [address] [address] Patient Name: YOLI ANTUNEZ MRN: [id number] date: 1955 Sex: M Assigned Patient Location: [place] Current Patient Location: [place] Accession/Order Number: [id number] Exam Date: 03/25/2025 07:01 Report Date: 03/25/2025 09:37 At the request of: YANEDL BURKS APRN Procedure: US abdominal aortic aneurysm ULTRASOUND OF THE ABDOMINAL AORTA COMPARISON: CT 12/30/2021 CLINICAL DATA: History of aortic aneurysm Evaluation is limited due to body habitus and bowel gas. No aortic aneurysm is identified. Proximally the aorta measures approximately 2.8 x 2.5 cm in size. The midsegment, the aorta measures 2.1 x 1.9 cm. Distally, the aortic diameter is estimated at 1.8 x 2.0 cm. At the bifurcation is visualized and iliac arteries are normal caliber. No periaortic fluid is seen. US/US abdominal aortic aneurysm IMPRESSION: NO ABDOMINAL AORTIC ANEURYSM Impression dictated by: Aide Banks M.D. 03/25/2025 9:37 AM Dictation Location: [place] [address] Electronically authenticated by: [id number] Y Date: 03/25/2025 09:37
--- OUTSIDE RECORDS SUMMARY | 2025-03-25 07:03 | XMS_ITS | Clinical Summary ---
Author Organization [facility] Address [address] [place] [address] Phone Care Team Providers Care Mimeographer Name Role Phone Radha Newton MD Primary Care Provider [phone] Allergies Active AllergyReactionsCriticalityNoted TwjmIsbpsqwdTlutsfydajvIstqbig89/11/2023 GihxrrbxhpcPuedfwn77/11/6641QlinzvdhnzGbeszmu18/11/2023Vancomycin HclUnknown 01/30/2023Vancomycin Hcl In QgmbeDucieme75/11/2023 Medications MedicationSigDispense QuantityRefillsLast FilledStart DateEnd DateStatus venlafaxine [...] once daily.Active ergocalciferol (Vitamin D-2) 1.25 MG (20094 UT) capsule Take 1 capsule (1,250 mcg) [...] Problems ProblemNoted DateDiagnosed DateBilateral partial vocal cord iifcbkccu21/11/2023 Dysphagia, oropharyngeal phase01/30/2023lottic lngvgurlyerpv17/11/2023trial pemysytofkar24/11/1734Ikmqcka44/11/2023GERD (gastroesophageal reflux disease) 01/30/2023Muscle fgqqqf6001/30/2023 Immunizations ImmunizationAdministration DatesNext DueFlu vaccine (IIV4), preservative free *Check age/dose*01/28/2016Tdap vaccine, age 7 year and older (BOOSTRIX, ADACEL) 01/27/2013 Family History Medical HistoryRelationNameCommentsLung cancerFatherLung cancerMotherRelation NameStatusCommentsFatherMother Social History Tobacco UseTypesPacks/DayYears UsedDateSmoking Tobacco: Never AssessedSex and Gender InformationValueDate RecordedSex Assigned at BirthNot on fileLegal Sex Male03/16/2022 6:56 PM ESTGender IdentityNot on fileSexual OrientationNot on file Last Filed Vital Signs Vital SignReadingTime TakenCommentsBlood Ffqulowq088/6507 2:23 PM EDT Qqeij0509/ 2:23 PM UHAKfnltcscovg37.6 ??C (97.8 ??F)08/17/2022 10:33 AM EDTRespiratory Rgdr582208/17/2022 10:33 AM EDTOxygen Qfmgbhoyjq92%08/17/2022 10:33 AM EDTInhaled Oxygen Concentration--Erpucr673 kg (250 lb)01/31/2023 2:51 PM EDT Hfmaju400.1 cm (6' 6 )11/29/2022 1:43 PM EDTBody Mass Index28.8911/29/2022 1:43 PM EDT Plan of Treatment Health MaintenanceDue DateLast DoneCommentsCT Xmepxxwgvhss25/30/1954Colonoscopy 1955olorectal Cancer Mborruknb23/30/1954FIT-DNA (Cologuard)1955FIT 1955Lipid Panel1955 9148Slddlgkscloqs53/30/1954TSH Level1953MMR Vaccines (1 of 1 - Standard series)1954Hepatitis C Zgaecjora52/30/1972 Pneumococcal Vaccine (1 of 1 - PCV)2003RSV High Risk: (Elderly (60+) or Population) (1 - Risk 50-74 years 1-dose series)2003Zoster Vaccines (1 of 2)2003Medicare Annual Wellness Visit (AWV)12/17/2020 12/17/2019DTaP/Tdap/Td Vaccines (2 - Td or Tdap)Diabetes Ufytepyoa68, 11/21/2022, 01/01/2022Influenza Vaccine (#1) /11/2015COVID-19 Vaccine ( season), 07/15/2020, 06/17/2020Irritable Bowel QvqdvfctPblaqithukhm26/25/2023, 08/30/2022 HIB VaccinesAged OutNo longer eligible based [...] PM EDT Left lower quadrant abdominal pain YLJAzbhtix51/25/2023 3:41 PM EDT from Last 3 Months or Most Recently Relevant to Health Maintenance Results * (ABNORMAL) Basic metabolic panel (01/31/2023 3:30 PM EDT)ComponentValueRef RangeTest MethodAnalysis TimePerformed AtPathologist CfarnkfnsWdpestd9965 - 99 mg/dL LAB CHEMISTRY METHOD 01/31/2023 5:09 PM [facility] CXRFmmfev879186 - 145 mmol/L LAB CHEMISTRY METHOD 01/31/2023 5:09 PM [facility] LABPotassium4.33.5 - 5.3 mmol/L LAB CHEMISTRY METHOD 01/31/2023 5:09 PM [facility] FOLJoxmrlfr17050 - 107 mmol/L LAB CHEMISTRY METHOD 01/31/2023 5:09 PM [facility] EAXUvtqsobwtwx1111 - 32 mmol/L LAB CHEMISTRY METHOD 01/31/2023 5:09 PM [facility] LABAnion Hhm4768 - 20 mmol/L LAB CHEMISTRY METHOD 01/31/2023 5:09 PM [facility] LABUrea Larsbkyn13(H)6 - 23 mg/dL LAB CHEMISTRY METHOD 01/31/2023 5:09 PM [facility] LABCreatinine1.65(H)0.50 - 1.30 mg/dL LAB CHEMISTRY METHOD 01/31/2023 5:09 PM [facility] GCBzRAB75(L)>60 mL/min/1.73m*2 LAB CHEMISTRY METHOD 01/31/2023 5:09 PM [facility] LABComment: Calculations of estimated GFR are performed using the 2020 CKD-EPI Study Refit equation without therace variable for the IDMS-Traceable creatinine methods. https://jasn.asnjournals.org/content///ASN.9190726637 Calcium7.2(L)8.6 - 10.3 mg/dL LAB CHEMISTRY METHOD 01/31/2023 5:09 PM [facility] LABSpecimen (Source)Anatomical Location / LateralityCollection Method / VolumeCollection TimeReceived TimeBlood Venous blood specimen / UnknownVenipuncture / Irnziyy3801/31/2023 3:30 PM EDT 01/31/2023 3:30 PM EDT Narrative Authorizing ProviderResult TypeResult StatusYossi Chen MDLAB BLOOD ORDERABLES Final ResultPerforming OrganizationAddressCity/State/ZIP CodePhone Number [facility] [address] [place] [address] * Esophagogastroduodenoscopy (EGD) (09/13/2022 3:41 PM EDT)Anatomical Region LateralityModalityEndoscopySpecimen (Source)Anatomical Location / Laterality Collection Method / VolumeCollection TimeReceived Time09/13/2022 3:41 PM EDT Narrative 09/13/2022 4:51 PM EDT Patient Name: Everardo Arnold Procedure Date: 09/13/2022 3:41 PM Date of : 1955 Admit Type: Outpatient Site: [facility] Procedure Room 2 Ethnicity: Not or Race: White Attending MD: Ruby Daily MD, [id number] Procedure: ? Upper GI endoscopy Indications: ? Dysphagia, cricopharyngeal web Providers: ? Ruby Daily MD (Doctor), Vale Mercado RN ? (Nurse), Sabina Atkins, Cellophane Press Operator Referring: ? Ruby Daily MD Medicines: ? [...] mucosal atrophy. ? [facility]. Dilated. Estimated Blood Loss: ? Estimated blood [...] Procedure Code(s): ? --- Professional --- ? 79086, Moderate sedation services provided by the same ? physician or other qualified health patient care provider ? performing the diagnostic or therapeutic service that ? the sedation supports, requiring the presence of an ? independent trained observer to assist in the ? monitoring of the patient's level of consciousness and ? physiological status; initial 15 minutes of ? intraservice time, patient age 5 years or older ? [address], Unlisted procedure, esophagus Diagnosis Code(s): ? --- Professional --- ? J38.3, Other diseases of vocal cords ? K44.9, Diaphragmatic hernia without obstruction or ? gangrene ? K22.89, Other specified disease of esophagus ? K31.89, Other diseases of stomach and duodenum ? 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 R13.10, Dysphagia, unspecified CPT copyright 2021 [employer]. All rights reserved. The codes documented in this report are preliminary and upon flame annealing machine operator review may be revised to meet current compliance requirements. Attending Participation: ? This operation could not have been safely performed (without ? compromising the technical results or length of the procedure) without ? the assistance of a skilled salesperson surgical appliances. A salesperson surgical appliances was ? medically necessary for positioning, retraction, and instrumentation. MD Ruby Edouard MD 09/13/2022 4:51:32 PM Number of Addenda: 0 Note Initiated On: 09/13/2022 3:41 PM Total Procedure Duration Time 0 hours 21 minutes 22 seconds Procedure Note Ruby Daily MD - 03/17/2024 Patient Name: Everardo Arnold Procedure Date: 09/13/2022 3:41 PM Date of : 1955 Admit Type: Outpatient Site: [facility] Procedure Room 2 Ethnicity: Not or Race: White Attending MD: Ruby Daily MD, [id number] Procedure: Upper GI endoscopy Indications: Dysphagia, cricopharyngeal web Providers: Ruby Daily MD (Doctor), Vale Mercado RN (Nurse), Sabina Atkins, Cellophane Press Operator Referring: Ruby Daily MD Medicines: Fentanyl 200 [...] present medications. Procedure Code(s): --- Professional --- 51378, Moderate sedation services provided by [facility] physician or other qualified health careprofessional performing the diagnostic or therapeutic servicethat the sedation supports, requiring the presence of an independent trained observer to assist in the monitoring of the patient's level of consciousnessand physiological status; initial 15 minutes of intraservice time, patient age 5 years or older [address], Unlisted procedure, esophagus Diagnosis Code(s): --- Professional --- J38.3, Other diseases of vocal cords K44.9, Diaphragmatic hernia without obstruction or gangrene K22.89, Other specified disease of esophagus K31.89, Other diseases of stomach and duodenum 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 All rights reserved. The codes documented in this report are preliminary and upon flame annealing machine operator reviewmay be revised to meet current compliance requirements. Attending Participation: This operation could not have been safely performed (without compromising the technical results or length of the procedure)without the assistance of a skilled salesperson surgical appliances. A surgical assistantwas medically necessary for positioning, retraction, andinstrumentation. MD Ruby Edouard MD 09/13/2022 4:51:32 PM Number of Addenda: 0 Note Initiated On: 09/13/2022 3:41 PM Total Procedure Duration Time 0 hours 21 minutes 22 seconds Authorizing ProviderResult TypeResult StatusRuby Daily MDENDOSCOPY PROCEDURE ORDERABLESEdited Result - Final from Last 3 Months or Most Recently Relevant to Health Maintenance Insurance [address] [place] [address] Care Teams Team MemberRelationshipSpecialtyStart DateEnd Date Radha Newton MD [address] [place] [address] [facility] - Plnahzv38/1/20
--- OUTSIDE RECORDS SUMMARY | 2025-03-25 07:05 | XMS_ITS | CCD ---
Author Organization [facility]iniSym[facility] Care Team Providers Care Industrial Technologist Name Role Phone CLAIR MATT Unavailable Unavailable [...] DO Unavailable Radha Burris Primary Care Provider [phone] Tucker VAZQUEZ Elian Caballero Unavailable Herminia Roland MD Unavailable [phone] MARKER, DR MARTIN Consulting Unavailable MARKER, [...] Unavailable FATUMA, DR OCONNOR Primary Care Unavailable WILTON, DR SUAREZ Consulting Unavailable VITALIY, YANDEL Consulting Unavailable MOUKARBEL, DR GARVEY Consulting Unavailable MOUKARBEL, DR GARVEY Attending Unavailable FATUMA, DR OCONNOR Primary Care Unavailable MOUKARBEL, DR GARVEY Admitting Unavailable VITALIY, YANDEL Admitting Unavailable VITALIY, YANDEL Consulting Unavailable VITALIY, YANDEL Attending Unavailable FATUMA, DR OCONNOR Primary Care Unavailable Fatuma, Radha R Unavailable [phone] Unavailable Unavailable Fatuma, Dr. Radha Mena Primary Care Unavail able Bahvesh Penn Admitting Unavailable Bhavesh Penn Attending Unavailable [...] K Unavailable Luan VAZQUEZ, Herminia Harini Unavailable [phone] Radha Burris MD Primary Care Provider YOSSI CHEN Attending Unavailable RADHA BURRIS Primary Care Unavailable RADHA BURRIS Primary Care Unavailable RADHA BURRIS Primary Care Unavailable Charlene Soria Unavailable MD Radha Rapp Primary Care Pr ovider MD Charlene Soria Attending Provider [phone] Fatuma VAZQUEZ, Radha Primary Care Provider Kargabriel [...] Hill Attending Unavailable Devonte Pina DOer Unavailable [phone] Shashi Pina DO Unavailable Radha Burris MD [...] Radha Rapp MD Primary Care Pr ovider aMryann Armstrong MD Attending Provider [phone] Radha Rapp Primary Care Un available Maryann [...] PEARL Referring Unavailable Radha Burris MD Unavailable [phone] Radha Burris MD Unavailable [phone] Shashi Pina DO Unavailable SYD MCGREGOR Referring Unavailable MAMEKAYLIEIR Attending Unavailable SHASHI PINA Referring Unavailable LALITO JOSHI Referring Unavailable MAMEMARQUITA Attending Unavailable MAMEKAYLIEIR Referring Unavailable MAME, MARQUITA Attending Unavailable VITALIY, YANDEL Attending Unavailable VITALIY, YANDEL Attending Unavailable VITALIY, YANDEL Attending Unavailable MADELYN, LALITO Referring Unavailable MADELYN, LALITO Referring Unavailable HUNTER, HANI Referring Unavailable FELIZ, MARGO Referring Unavailable FELIZ, MARGO Referring Unavailable ALGHOTHANI, MOHAMAD Referring Unavailable HUNTER, HANI Referring Unavailable HORANI, MIGUEL Admitting Unavailable HUNTER, HANI Attending Unavailable ALGHOTHANI, MOHAMAD Referring Unavailable HUNTER, HANI Referring Unavailable Allergies Allergy ClassificationReported Allergen(s)Allergy TypeDate of OnsetReaction(s) Facility (20 sources)Amoxicillin; Translations: [amoxicillin]Drug Bkjebpo71-51-4861 [facility] (20 sources)Penicillins; Translations: [Penicillins]drug huukpvp15-06-6643Besi [facility] (20 sources)Penicillin; Translations: [PENICILLIN]Drug Uimaoxb45-37-6978Mrzsvht (qualifier value)[facility] (1 source)PenicillinDrug Hpohmvf80-51-6141[facility]Bl[facility] (20 sources)dofetilide; Translations: [Tikosyn CAPS]Drug Pvmqqie44-29-1830Cuhua: See Comments, UnknownB[facility] (20 sources)PenicillinsPropensity to adverse reactions to niki97-45-8421Acthkkj, OtherMet[facility] Work Phone: (20 sources)PenicillinsDrug Istubvb29-04-3962HaqmwtyUikdhretg Clinic Work Phone: (3 sources)dofetilide; Translations: [Tikosyn]Drug Liakdnw39-40-9143Slc [facility] Repository (1 source)PenicillinsDrug allergy (disorder)15-74-8196Dgj [facility] Repository (11 sources)Vancomycin; Translations: [vancomycin]Drug Edunljo19-99-9358PzysfJjo [facility] Repository (20 sources)Vancomycin; Translations: [Vancomycin HCl CAPS]Drug Allergy 04-67-3485Rjztkakojch, Itching, [facility] (8 sources)Vancomycin HCl in Dextrose SOLN; Translations: [Vancomycin HCl in Dextrose SOLN]Allergy to drug (finding)LL-Zcplpsbtlzvhju-Nylcyoh Work Phone: (7 sources)Vancomycin; Translations: [VANCOMYCIN HCL]Drug Droiqtb00-13-5076 [facility] Work Phone: (7 sources)Vancomycin Hcl In Water; Translations: [VANCOMYCIN HCL IN WATER] Propensity to adverse djyrgzpbo26-77-5619AgrptfhRtklanbjwr [facility] Work Phone: (20 sources)dofetilideDrug Fmtyabt61-31-8504Ftdrrbuum, [facility] (4 sources)PenicillinsDrug Ttnlulw90-57-4400PjcjszuFxbwjxcrq Clinic Work Phone: (1 source)dofetilideDrug Dbtlnns43-76-7162[facility]veyxqzSy[facility] Rep[facility] (1 source)PenicillinsDrug allergy (disorder)22-47-4006ErefeukumSycamore Medical Center Repository (1 source)VancomycinDrug Olqcfsd54-64-9820ModvhqnxuSycamore Medical Center Repository Medications Current Medications MedicationDrug Class(es)DatesSig (Normalized)Sig (Original)acetaminophen 325 mg / HYDROcodone bitartrate 5 mg oral tablet (1 source)Opioid AgonistStart: 10-07-2024 End: 55-41-3017dxdt 1 tablet by mouth every four hours for painNorco 325 mg-5 mg oral tablet 1 tab(s), Oral, q4hr for pain for 7 day(s), 24 tab(s), Refill(s) 0, [facility], 198, cm, 09/26/24 9:24:00 EDT, Height/Length Dosing, 115, kg, 09/26/24 9:24:00EDT, Weight Dosing Start Date: 10/07/24 Stop Date: 10/14/24 Status: Ordered Quantity: 24.0 Unit: tab(s) Repeat number: 1 Indications: Other acute postprocedural pain;Ascorbic Acid / POLYETHYLENE GLYCOL 3350 / Potassium Chloride / Sodium Ascorbate / Sodium Chloride / sodium sulfate (9 sources)Osmotic Laxative, Vitamin CStart: 02-17-2024 End: 85-73-3521JXR-QWb-WkDw-RaVpmd-Na Asc-C (Plenvu) 140 g reconstituted solution MLSDIRECTED Orally ASDIRECTED for 2 days 02/17/2024 06/09/2024 Discontinued (Therapy completed)Start: 26-53-0645LIZ-BPn-GxLt-FbKksb-Na Asc-C (Plenvu) 140 g reconstituted solution MLSDIRECTED [...] oral tablet (9 sources)Stimulant LaxativeStart: 02-17-2024 End: 34-01-4416bihqaxxhi (Dulcolax) 5 MG EC tablet 1 (one) time each day at the same time 02/17/2024 06/09/2024 Discontinued (Therapy completed)budesonide 3 mg delayed release oral capsule (5 sources)CorticosteroidStart: 32-47-1935xzkx 3 tablets by mouth once daily, then take 2 tablets by mouth once daily, then take 1 tablet by mouth once daily Start: 13-62-7241Nevzyfrtfx 3 MG 3 tabs daily for 60 days, 2 tabs daily for 14 days, 1 tab daily for 14 days Orally Once a day for 90 days Apr, Active calcitriol 0.36513 mg oral capsule (20 sources)Vitamin D3 AnalogStart: 03-37-8266bjas 2 capsules by mouth once daily in the eveningcalcitriol 0.25 mcg Cap 0.5 mcg = 2 cap(s), Oral, qPM, Refills(s) 0 Start Date: 09/13/20 Status: Ordered Repeat number: 1Start: 01-15-2020 End: 57-05-7044vwvk 1 capsule by mouth once daily in the eveningCalcitriol 0.25 mcg capsule Discontinued 0.25 MCG PO Every evening July 01, 2020 1:00am 2022 1:19pmStart: 01-15-2020 End: 00-05-2319lhji 2 capsules by mouth once dailycalcitriol (ROCALTROL) 0.25 mcg capsule Take 2 capsules by mouth once daily. 01/15/2020 05/04/2021 D iscontinued (Discontinued by another Health Care Provider)Start: 09-25-2018 End: 02-35-7733txwt 1 capsule by mouth twice dailyCalcitriol (Rocaltrol) [...] carbonate 1250 mg oral tablet (20 sources)Start: 51-80-8366ewft 1 tablet by mouth once dailyStart: 05-22-2022 take 1 tablet by mouth twice daily at mealtimecalcium carbonate (Oscal) 500 mg calcium (1,250 mg) tablet Take 1 tablet (1,250 mg) by mouth 2 times a day with meals. 0 05/22/2022 ActiveStart: 96-90-6626ziec 1 tablet by mouth twice daily at [...] suspension (16 sources)Bile Acid SequestrantStart: 02-18-2024 End: 74-55-1842oqvfyuenaidpil (Questran) 4 g packet MIX 1 PACKET WITH WATER OR NON-CARBONATED DRINK AND DRINK ONCEA DAY. 02/18/2024 06/09/2024 Discontinued (Therapy completed)Start: 50-04-2772Rikprbebpuhdjh 4 GM/DOSE 1 scoop Orally Once a day for 30 days Feb, ActiveStart: 43-10-4765Kopkkpetwinnpq 4 GM/DOSE 1 scoop Orally Once a day for 30 days Feb, Activeclindamycin 300 mg oral capsule (5 sources)Lincosamide AntibacterialStart: 08-21-2024 End: 63-42-6221uyyr 1 capsule by mouth in the morning, [...] 10 days. 30 capsule 08/21/2024 08/31/2024 ActiveStart: 61-50-0024hnju 2 capsules by mouth twice dailyclindamycin (CLEOCIN) 300 MG capsule Take 2 Capsules by mouth 2 times daily. 28 Capsule 0 01/27/2020 Activeclopidogrel 75 mg oral tablet (19 sources)P2Y12 Platelet InhibitorStart: 33-35-8726eykfgujocrh (Plavix) 75 mg tablet Take by mouth. 0 07/28/2022 Active End: 31-38-2169Qhdzzs 75 MG Oral Tablet Quantity: 0 Refills: 0 Ordered: 25-Sep-2022 DO End : 25-Sep-2022 CompletePlavix 75 MG Oral Tablet Quantity: 0 Refills: 0 Ordered: 17-Jul-2022 DO ActiveComment on above:Take 1 tablet by mouth once daily.clotrimazole 10 mg/ml topical cream (7 sources)Azole AntifungalStart: 01-13-2024 End: 49-23-9773fdgultfqlgbt (Lotrimin) 1 % cream Indications: Dermatitis Apply topically 2 (two) times a day 60 g 1 01/13/2024 02/06/2024 Discontinued (Therapy completed)dexamethasone (DECADRON) 40 mg in sodium chloride 0.9 % 100 mL IVPB (1 source)Start: 17-24-4388zrolwshuyxeep (DECADRON) 40 mg in sodium chloride 0.9 % 100 mL IVPBdoxycycline hyclate 100 mg oral tablet (12 sources)Tetracycline-class DrugStart: 09-02-2024 End: 36-03-4010ytym 1 tablet by mouth in the morningdoxycycline (Vibra-Tabs) 100 MG tablet Indications: Acute non-recurrent maxillary sinusitis Take 1 tablet (100 mg) by mouth in the morning and 1 tablet (100 mg) before bedtime. Take with a full glassof water and do not lie down for at least 30 minutes after. 60 tablet 09/08/2024 10/08/2024 ActiveStart: 76-88-5954girf 1 capsule by mouth twice dailydoxycycline hyclate 100 mg Cap 100 mg = 1 cap(s), Oral, BID, Refills(s) 0 Start Date: 09/13/20 Status: Ordered Repeat number: 1ERENUMAB-AOOE SUBQ (2 sources)ERENUMAB-AOOE SUBQ Inject under the skin. 0 Activeergocalciferol 1.25 mg oral capsule (20 sources)Provitamin D2 CompoundStart: 08-10-2024 End: 70-93-8171pmbk 1 capsule by mouth every weekergocalciferol (Vitamin D2) 1.25 MG (82695 UT) capsule Indications: Hypocalcemia Take 1 capsule by mouth once a week 12 capsule 1 12/29/2024 ActiveStart: 74-17-2343auro 1 capsule by mouth every weekergocalciferol (Vitamin D-2) 1.25 MG (33199 UT) capsule Take 1 capsule (1,250 mcg) by mouth 1 (one)time per week. 0 10/08/2022 ActiveStart: 01-10-2022 End: 75-01-4921ebnz 1 capsule by mouth every weekVitamin D (Ergocalciferol) 1.25 MG (73745 UT) Oral Capsule TAKE 1 CAPSULE BY MOUTH ONCE A WEEK Quantity: 12 Refills: 0 Ordered: 17-Jul-2022 DO Start : 10-Jan-2022 ActiveVitamin D2 Active Comment on above:Take 50,000 Units by mouth one time a week.fluconazole 100 mg oral tablet (4 sources)Azole AntifungalStart: 89-52-1412bpyf 1 tablet by mouth once daily fluconazole (DIFLUCAN) 100 MG tablet Take 1 Tablet by mouth daily. 14 Tablet 1 01/27/2020 ActiveHYDROmorphone (DILAUDID) injection 0.25 mg (2 sources)Start: 04-60-2195DSZYPrqhoijdb (DILAUDID) injection 0.25 mgStart: 12-31-2021 End: 25-98-0334GLIGEoweftvwg (DILAUDID) injection 0.25 mg24 hr isosorbide mononitrate 30 mg extended release oral tablet (20 sources)Nitrate VasodilatorStart: 07-01-2020 End: 17-86-1015zjjj 1 tablet by mouth once daily, then take 1 tablet by mouth every twenty-four hoursIsosorbide Mononitrate 60 mg Tablet Extended Release 24 Hr Discontinued 60 MG PO Daily July 01, 2020 1:00am April 12, 2023 1:19pmStart: 12-02-2019 End: 01-79-5536ecvg 1 tablet by mouth in the morning, then take 1 tablet by mouth every twenty-four hoursisosorbide mononitrate ER (Imdur) 30 MG 24 hr tablet Take 30 mg by mouth in the morning. ActiveIsosorbide Mononitrate Not-Taking/PRNIsosorbide Mononitrate Not-Takinglevothyroxine sodium 0.175 mg oral tablet (20 sources)l-ThyroxineStart: 21-84-1826jlug 1 tablet by mouth three times weeklylevothyroxine (Synthroid) 175 MCG tablet Indications: Acquired hypothyroidism Take 1 tablet (175 mcg) by mouth 3 (three) times a week Take on an empty stomach 36 tablet 12/30/2024 ActiveStart: 16-18-6210tfmo 1 tablet by mouth three times weeklylevothyroxine (Synthroid) 175 MCG tablet Indications: Acquired hypothyroidism Take 1 tablet (175 mcg) by mouth 3 (three) times a week Take on an empty stomach 36 tablet 12/30/2024 ActiveStart: 11-18-2024 End: 62-18-6900amkd 1 tablet by mouth three times weeklylevothyroxine (Synthroid) 175 MCG tablet Indications: Acquired hypothyroidism Take 1 tablet (175 mcg) by mouth 3 (three) times a week Take on an empty stomach 36 tablet 11/18/2024 12/29/2024 Discontinued (Reorder)Start: 05-07-3636lmer 1 tablet by mouth every other daylevothyroxine 175 mcg (0.175 mg) Tab 175 mcg = 1 tab(s), Oral, Every other day, Refills(s) 0 Start Date: 09/25/24 Status: Ordered Repeat number: 1Start: 97-02-5925mobn 1 tablet by mouth three times weeklylevothyroxine (Synthroid) 175 MCG tablet Indications: Acquired hypothyroidism Take 1 tablet (175 mcg) by mouth 3 (three) times a week Take on an empty stomach 36 tablet 09/02/2024 ActiveStart: 06-11-2024 End: 35-82-5519szjw 1 tablet by mouth four times weeklylevothyroxine (Synthroid, Levoxyl) 150 MCG tablet Indications: Acquired hypothyroidism TAKE 1 TABLET BY MOUTH FOUR TIMES A WEEK TAKE ON AN EMPTY STOMACH 48 tablet 12/29/2024 Active Start: 55-87-2510drll 1 tablet by mouth four times weeklylevothyroxine (Synthroid) 150 MCG tablet Indications: Acquired hypothyroidism (CMS/HCC) Take 1 tablet (150 mcg) by mouth 4 (four) times a week Take on an empty stomach 48 tablet 06/11/2024 ActiveStart: 59-31-7293caua 1 tablet by mouth three times weeklylevothyroxine (Synthroid) 175 MCG tablet Indications: Acquired hypothyroidism (CMS/HCC) Take 1 tablet (175 mcg) by mouth 3 (three) times a week Take on an empty stomach 36 tablet 06/10/2024 ActiveStart: 11-04-2023 End: 42-71-8348ykhw 1 tablet by mouth before mealtimelevothyroxine (Synthroid) 150 MCG tablet Indications: Acquired hypothyroidism (CMS/HCC) Take 1 tablet (150 mcg) by mouth in the morning. Take before meals. 90 tablet 05/19/2024 06/10/2024 Discontinued (Reorder)Start: 99-42-9966mcsu 1 tablet by mouth before mealtime levothyroxine (Synthroid) 200 MCG tablet Indications: 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, unspecified type (CMS/HCC) Take 1 tablet (200 mcg) by mouth in the morning. Take before meals. 90 tablet 3 04/23/2023 ActiveStart: 37-49-5487slqy 150 ug by mouth once nlqii837 mcg, Oral, DAILY, First dose on Sat01/03/22 at 0900, Until Discontinued Tube feeding (TF) interaction, obtain physician order to manage, recommend holding TF for 30 minutes before and after dose.Start: 12-45-7877qjhy 1 tablet by mouth once daily before breakfastlevothyroxine (LEVOXYL) 175 mcg tablet Take 1 tablet by mouth daily before breakfast. 12/15/2020 ActiveStart: 24-50-9641vasy 1 tablet by mouth every other daylevothyroxine 150 mcg (0.15 mg) Tab 150 mcg = 1 tab(s), Oral, Every other day, Refills(s) 0 Start Date: 09/13/20 Status: Ordered Repeat number: 1Start: 07-01-2020 End: 65-17-8333tewb 125 ug by mouth once dailyLevothyroxine Discontinued 25 MCG PO Daily July 01, 2020 12:00am April 12, 2023 12:19pm takes with 125mcg dose for 150mcg dailyStart: 01-15-2020 End: 00-87-3843cnpk 5 tablets by mouth once dailyLevothyroxine 25 mcg tablet Discontinued 25 MCG PO Daily July 01, 2020 1:00am April 12, 2023 1:19pm takes with 125mcg dose for 150mcg dailyStart: 18-54-8247uyidnsfkurqet (Synthroid, Levoxyl) 25 mcg tablet Take by mouth. 0 01/15/2020 ActiveStart: 36-96-6936qddj 1 tablet by mouth once daily at bedtimelevothyroxine (Synthroid, Levoxyl) 125 mcg tablet Take 1 tablet (125 mcg) by mouth once daily at bedtime. REPEAT TSH in FOUR WEEKS 0 11/06/2019 ActiveStart: 05-02-2018 End: 14-37-3381Hirjo: 38-43-5340ibet 25 ug by mouth once dailyLevothyroxine Active [...] oral tablet (3 sources)Angiotensin Converting Enzyme InhibitorStart: 96-54-0918dxxa 1 tablet by mouth once dailylisinopril (ZESTRIL) [...] oxide 250 mg oral tablet (6 sources)Start: 59-38-1060qpmi 250 mg by mouth once dailymagnesium oxide 250 mg, Oral, Daily, Refills(s) 0 Start Date: 09/25/24 Status: Ordered Repeat number:1 magnesium oxide (MAG-OX) 400 mg (241.3 mg magnesium) tablet Take 235 mg by mouth two times a day. Activemagnesium sulfate 4 g, lidocaine (cardiac) (XYLOCAINE) 100 mg in sodium chloride 0.9 % 250 mL IVPB (1 source)Start: 67-55-5567klgzapufy sulfate 4 g, lidocaine (cardiac) (XYLOCAINE) 100 mg in sodium chloride 0.9 % 250 mL IVPBmetoprolol tartrate 25 mg oral tablet (20 sources)beta-Adrenergic BlockerStart: 61-56-5206hwpjbyvutg tartrate (Lopressor) 25 MG tablet Take 12.5 mg by mouth in the morning and 12.5 mg before bedtime. Per cardio Dr Vilchis. 07/24/2023 ActiveStart: 02-01-2021 End: 92-08-6000emmm 0.5 tablet by mouth twice dailymetoprolol tartrate, short acting, (LOPRESSOR) 25 mg tablet Take 0.5 tablets by mouth twice daily. 60 tablet 5 02/01/2021 05/04/2021 Discontinued (Discontinued by another Health Care Provider)Start: 07-01-2020 End: 62-88-5966dxjh 1 tablet by mouth twice dailyMetoprolol Tartrate 75 mg Tablet Discontinued 75 MG PO Twice daily July 01, 2020 1:00am 2022 1:19pmStart: 78-25-6587titfdcgtlb (LOPRESSOR) 25 MG tablet 02/08/2020 ActiveStart: 46-52-1838kvqv 1 tablet by mouth once dailymetoprolol (TOPROL-XL) 25 mg XL tablet TAKE 1 TABLET BY MOUTH DAILY. 30 Tablet 3 01/15/2020 Active Metoprolol Tartrate Not-Taking/PRNtake 1 tablet by mouth every twenty-four hours metoprolol succinate XL (Toprol-XL) 25 mg 24 hr tablet Take by mouth. 0 Active Metoprolol Tartrate Not-TakingmetroNIDAZOLE 500 mg oral tablet (15 sources)Nitroimidazole AntimicrobialStart: 09-22-2024 End: 58-15-3206ZjwwmDLAGNHAD 500 mg Tab 500 mg = 1 tab(s), Refills(s) 0 Start Date: 09/25/24 Status: Ordered Repeat number: 1Start: 09-08-2024 End: 48-82-2960rehp 1 tablet by mouth in the morning, [...] 10 days. 30 tablet 09/08/2024 09/18/2024 ActiveStart: 15-94-0271nuiudVTDVZYFW 500 MG Oral Tablet Quantity: 6 Refills: 0 Ordered: 05-Jan-2022 DO Start : 46-Veu-1813LfynrvCfkvk: 01-03-2022 End: 63-96-4192548 mg, Oral, EVERY 8 HOURS SCHEDULED (3 times per day), 15 doses, First dose on Sat01/03/22 at 2100, Last dose on Sat01/08/22 at 1400 Antimicrobial Indications: Other Other Abx Indication: acute infected cholecystitisStart: 01-03-2022 End: 01-37-2858mehf 1 tablet by mouth every eight hoursmetroNIDAZOLE (FLAGYL) 500 MG tablet Take 1 tablet by mouth every 8 hours for 2 days 6 tablet 0 12/2101/07/2022 ActiveStart: 01-02-2022 End: 03-65-7735542 mg, IntraVENous, EVERY 8 HOURS, 3 doses, First dose on Sat01/02/22 at 1530, Last dose on Sat01/03/22 at 0730 Antimicrobial Indications: Surgical Prophylaxismidodrine hydrochloride 5 mg oral tablet (20 sources)alpha-Adrenergic AgonistStart: 00-90-3402inhl 1 tablet by mouth three times dailymidodrine (PROAMITINE) 5 mg tablet Take 5 mg by mouth three times a day. 11/03/2024 ActiveStart: 27-24-0638oduy 1 tablet by mouth once daily midodrine 5 mg Tab 5 mg = 1 tab(s), Oral, Daily, Refills(s) 0 Start Date: 09/25/24 Status: Ordered Repeat number: 1Start: 03-11-2024 End: 80-95-2186jhkqyiwip (Proamatine) 5 MG tablet Take 5 mg by mouth in the morning and 5 mg at noon and 5 mg in the evening. 03/11/2024 07/09/2024 Active mometasone furoate 0.001 mg/mg topical ointment (15 sources)CorticosteroidStart: 02-06-2024 End: 89-04-4290vqgqyefdfc (Elocon) 0.1 % ointment Indications: Dermatitis Apply topically Daily 45 g 02/06/2024 06/09/2024 Discontinued (Therapy completed) nitrofurantoin, macrocrystals 25 mg / nitrofurantoin, monohydrate 75 mg oral capsule (4 sources)Nitrofuran AntibacterialStart: 31-75-3287puyzmmvlnwdqgj monohydrate macrocrystal (MACROBID) 100 MG capsule 01/22/2020 Activenitroglycerin 0.4 mg sublingual tablet (20 sources)Nitrate VasodilatorStart: 40-52-6611lvydtaeawtkjb (Nitrostat) 0.4 MG SL tablet Indications: Atypical angina DISSOLVE ONE TABLET UNDER THE TONGUE EVERY 5 MINUTES NEEDED FOR CHEST PAIN. 75 tablet 07/06/2024 ActiveStart: 02-06-2024 End: 10-55-6946tqsbpqoulumtn (Nitrostat) 0.4 MG SL tablet Indications: Atypical angina (CMS/HCC) Place 1 tablet (0.4 mg) under the tongue every 5 (five) minutes if needed for chest pain 90 tablet 02/06/2024 ActiveComment on above:Dissolve 0.4 mg under the tongue every 5 minutes as needed.nystatin 100 unt/mg topical powder (4 sources)Polyene AntifungalStart: 96-85-0942uowiyjcc (MYCOSTATIN) 100,000 unit/g powder Apply topically 3 times daily. 45 g 1 01/27/2020 Activeomeprazole 20 mg delayed release oral capsule (20 sources)Proton Pump InhibitorStart: 07-17-2022 End: 47-41-6191bckx 1 capsule by mouth once daily at dinneromeprazole (PriLOSEC) [address] capsule Take 1 capsule (20 mg) by mouth once daily. Take 30 minutes p rior to dinner 0 10/09/2022 ActiveStart: 68-12-8325ijop 1 capsule by mouth at dinnerOmeprazole 20 MG Oral Capsule Delayed Release TAKE 1 CAPSULE BY MOUTH 30 MINUTES PRIOR TO DINNER Quantity: 30 Refills: 0 Ordered: 08-Oct-2022 Ranjana Perrin MD Start : 17-Jul-2022 ActiveStart: 07-01-2020 End: 51-65-2255uahe 1 capsule by mouth twice dailyOmeprazole 40 mg capsule,delayed release(DR/EC) Discontinued 40 MG PO Twice daily July 02, 2020 1:00am April 12, 2023 1:19pmStart: 51-14-7797wjwt 1 capsule by mouth once dailyomeprazole (PRILOSEC) 40 MG capsule TAKE 1 CAPSULE BY MOUTH DAILY. 30 Capsule 0 01/15/2020 ActiveOmeprazole Not-Taking/PRN End: 24-34-4313nbuqdlwqbo (PRILOSEC) 20 mg capsule Take 40 mg by mouth. 0 05/31/2022 Discontinued (Discontinued byanother Health Care Provider)Omeprazole Not-TakingComment on above:Take 40 mg by mouth.Take 20 mg by mouth once daily. ondansetron (ZOFRAN-ODT) disintegrating tablet 4 mg (1 source)Start: 32-05-5174tsixnwnauqb (ZOFRAN-ODT) disintegrating tablet 4 mg permethrin 50 mg/ml topical cream (10 sources)PyrethroidStart: 02-10-2024 End: 18-05-7610ghkibzhzlm (Elimite) 5 % cream Indications: Dermatitis apply to skin from hairline to toes and washoff 8-10 hours later 60 g 02/10/2024 06/09/2024 Discontinued (Therapy completed)polyethylene glycol 3350 621160 mg / potassium chloride 2970 mg / sodium bicarbonate 6740 mg / sodium chloride 5860 mg / sodium sulfate 06683 mg powder for oral solution (7 sources)Osmotic LaxativeStart: 68-59-6635jmwt 4000 mL by mouth onceGolytely 236 GM 4,000 ML Orally once for Feb, Activepramipexole dihydrochloride 1 mg oral tablet (20 sources)Nonergot Dopamine AgonistStart: 04-23-2024 End: 70-41-3385yynh 1 tablet by mouth at bedtimepramipexole (Mirapex) 1 MG tablet Indications: Restless leg Take 1 tablet (1 mg) by mouth at bedtime 90 tablet 3 04/23/2024 04/23/2025 ActiveStart: 05-02-2018 End: 49-84-7015pfcg 2 tablets by mouth once daily in the eveningpramipexole 1 mg Tab 2 mg = 2 tab(s), Oral, qPM, # 90 tab(s), Refills(s) 0 Start Date: 09/13/20 Status: Ordered Quantity: 90.0 Unit: tab(s) Repeat number: 1Start: 05-02-2018 End: 80-98-5117ksap 2 mg by mouth at bedtimePramipexole Discontinued 2 MG PO Bedtime May 02, 2018 12:00am April 12, 2023 12:19pmMirapex 1 MG TABS TAKE 1 TABLET TWICE DAILY. Quantity: 0 Refills: 0 Ordered: 03-Mar-2019 DO Active Comment on above:Take 2 mg by mouth daily at bedtime.predniSONE 10 mg oral tablet (5 sources)Start: 01-20-2024 End: 68-79-6314lntx 1 tablet by mouth in the morningpredniSONE [...] mg oral tablet (19 sources)Start: 08-07-2022 End: 50-95-6900atrz 1 tablet by mouth three times daily [...] hydrochloride 120 mg oral tablet (20 sources)AntiarrhythmicStart: 36-85-6242hmrexqm (Betapace) 120 MG tablet 02/26/2024 ActiveStart: 01-30-2024 End: 75-50-6112emeo 1 tablet by mouth in the morningsotalol (Betapace) 80 MG tablet Take 80 mg by mouth in the morning and 80 mg in the evening. 01/30/2024 02/29/2024 Activetake 1 tablet by mouth every twelve hourssotalol (BETAPACE) 120 mg tablet Take 120 mg by mouth every 12 hours. Activesucralfate 1000 mg oral tablet (20 sources)Aluminum ComplexStart: 67-09-1209noto 1 tablet by mouth four times daily at bedtimesucralfate (CARAFATE) 1 GM tablet TAKE 1 TABLET BY MOUTH 4 TIMES DAILY (BEFORE MEALS AND AT BEDTIME). 120 Tablet 3 01/15/2020 ActiveStart: 24-69-9372Bojcbamzcv 1 GM Oral Tablet Quantity: 120 Refills: 0 Ordered: 15-Jan-2020 DO Start : 15-Jan-2020 Active End: 93-92-3327aevw 1 tablet by mouth three times dailysucralfate (CARAFATE) 1 gram tablet Take 1 g by mouth three times daily. 05/04/2021 Discontinued (Di scontinued by another Health Care Provider)topiramate 25 mg oral tablet (14 sources)Start: 20-69-4684pxxyabiccv (Topamax) 25 MG tablet Take 12.5 mg by mouth in the morning and 12.5 mg before bedtime. 04/12/2023 ActiveStart: 47-52-1970smog 1 tablet by mouth twice dailyStart: 05-02-2018 End: 53-28-4124vadz 1 tablet by mouth twice dailyTopiramate 50 mg tablet Discontinued 50 MG PO Twice daily May 02, 2018 1:00am September 16, 2018 3 :06pm5 ml valproic acid 100 mg/ml injection (1 source)Mood Stabilizer, Anti-epileptic AgentStart: 20-36-9939Zolwmkpim Sodium SOLN 2,000 mg24 hr venlafaxine 37.5 mg extended release oral capsule (9 sources)Serotonin and Norepinephrine Reuptake InhibitorStart: 07-20-2022 End: 29-65-6532hmjn 1 capsule by mouth once daily in [...] oral tablet (3 sources)Opioid AgonistStart: 01-05-2022 End: 09-95-4970pkiRYOYUE-Acetaminophen 5-325 MG Oral Tablet Quantity: 15 Refills: 0 Ordered: 05-Jan-2022 DO Start : 05-Jan-2022 End : 25-Sep-2022 Complete Start: 01-05-2022 End: 75-89-6623gflj 1 tablet by mouth every eight hours as needed for pain oxyCODONE-acetaminophen (PERCOCET) 5-325 MG per tablet Indications: Acute pancreatitis, unspecifiedcomplication status, unspecified pancreatitis type Take 1 tablet by mouth every 8 hours as needed for Pain for up to 3 days. 15 tablet 0 01/05/2022 01/08/2022 ActiveStart: 62-88-5738plyALJVUZ-acetaminophen (PERCOCET) 5-325 MG per tablet 1 tabletAimovig (13 sources)Aimovig Not-Taking/PRNAimovig Not-TakingAmiodarone (13 sources)AntiarrhythmicAmiodarone HCl Not-Taking/PRNAmiodarone HCl Not-Taking amLODIPine 5 mg oral tablet (3 sources)Dihydropyridine Calcium Channel BlockeramLODIPine Besylate 5 MG Oral Tablet Refills: 0 ActiveamLODIPine 5 mg / benazepril hydrochloride 10 mg oral capsule (16 sources)Dihydropyridine Calcium Channel González, Angiotensin Converting Enzyme InhibitorStart: 02-27-2021 End: 52-05-4065rpRHETInew Besy-Benazepril HCl - 5-10 MG Oral Capsule Quantity: 90 Refills: 0 Ordered: 19-Nov-2021 DO Start : 27-Feb-2021 End : 25-Sep-2022 CompleteStart: 44-23-4437qitqgxywdw-benazepril (LOTREL) 5-10 MG per capsule 02/08/2020 ActiveStart: 05-02-2018 End: 70-86-3089uoro 1 capsule by mouth once daily in the eveningAmlodipine- Benazepril 5-10 mg capsule Discontinued 1 CAP PO Every evening May 02, 2018 1:00amDece2022 1:19pmComment on above:Take 1 capsule by mouth once daily.apixaban 5 mg oral tablet (15 sources)Factor Xa InhibitorStart: 07-01-2020 End: 46-20-5945pxbu 1 tablet by mouth twice dailyApixaban (Eliquis) 5 mg Tablet Discontinued 5 MG PO Twice daily July 01, 2020 1:00am April 12, 2023 1:19pm On Hold: Resume on 07/04/20. Hold Eliquis at discharge, may resume on ActiveComment on above:Take 5 mg by mouth twice daily.atorvastatin 80 mg oral tablet (20 sources)HMG-CoA Reductase InhibitorStart: 07-01-2020 End: 47-54-8395kzyq 1 tablet by mouth once daily in the eveningAtorvastatin 80 mg Tablet Discontinued 80 MG PO Every evening July 01, 2020 1:00am April 12, 2023 1:19pmAtorvastatin Calcium Not-Taking/PRN End: 76-21-9490Htoymwgzpbfm Calcium 80 MG Oral Tablet Quantity: 0 Refills: 0 Ordered: 31-Jul-2022 DO End : 31-Jul-2022 CompleteAtorvastatin Calcium Not-Takingbenazepril hydrochloride 10 mg oral tablet (20 sources)Angiotensin Converting Enzyme InhibitorStart: 05-31-2022 End: 89-12-1942acef 1 tablet by mouth once dailybenazepril (LOTENSIN) 10 mg tablet Take 1 tablet by mouth once daily. 0 05/31/2022 05/31/2023 Discontinued Start: 12-26-2021 End: 24-41-2394zvyt 1 tablet by mouth once dailyBenazepril HCl - 10 MG Oral Tablet TAKE 1 TABLET BY MOUTH ONCE DAILY Quantity: 90 Refills: 0 Ordered: 13-Aug-2022 DO Start : 26-Dec-2021 ActiveStart: 12-07-2019 End: 86-52-0470wowbuxminr (LOTENSIN) 5 MG tablet 12/07/2019 ActiveStart: 75-22-4722uagr 2 tablets by mouth once dailybenazepril (Lotensin) 5 mg tablet Take 2 tablets (10 mg) by mouth once daily. Replacing amlodipine/benazepril 0 11/06/2019 ActiveComment on above:Take 1 tablet by mouth once daily. betamethasone 3 mg/ml / betamethasone acetate 3 mg/ml injectable suspension (2 sources)CorticosteroidStart: 05-31-2022 End: 13-02-2034rgietfjfcuvfh acetate-betamethasone sodium phosphate 6 mg injection (CELESTONE)Start: 05-31-2022 End: 40-73-4386onjhveqngvuyi acetate-betamethasone sodium phosphate 12 mg injection (CELESTONE)calcium carbonate 1250 mg / cholecalciferol 200 unt oral tablet (7 sources)Vitamin DStart: 10-13-2018 End: 80-28-7980hhvg 4 tablets by mouth four times dailyCalcium Carbonate-Vitamin D3 (Oyster Shell Calcium-Vit D3) 500 mg(1,250mg) -200 unit tablet Discontinued 4 TAB PO Four times daily October 13, 2018 9:15pm July 01, 2020 3:30pmStart: 10-13-2018 End: 87-07-5170hkqh 2 tablets by mouth three times dailyCalcium Carbonate- Vitamin D3 500mg (1,250mg) -600 unit Tablet Discontinued 2 TAB PO Three times daily October 13, 2018 12:00am December 19, 2018 10:18amStart: 09-25-2018 End: 89-75-8582ejxv 3 tablets by mouth every six hoursCalcium Carbonate-Vitamin D3 (Oyster Shell Calcium-Vit D3) 500 mg(1,250mg) -200 unit Tablet Discontinued 3 TAB PO Q6H 360 30 September 25, 2018 8:45am October 13, 2018 9:09pmCalcium Carbonate- Vitamin D3 (Oyster Shell Calcium-Vit D3) 500 mg(1,250mg) -200 unit tablet (2 sources)Start: 10-13-2018 End: 15-07-1860wjiy 4 tablets by mouth four times dailyCalcium Carbonate-Vitamin D3 (Oyster Shell Calcium-Vit D3) 500 mg(1,250mg) -200 unit tablet Discontinued 4 TAB PO Four times daily October 13, 2018 8:15pm July 01, 2020 2:30pmcalcium chloride 0.0014 meq/ml / potassium chloride 0.004 meq/ml / sodium chloride 0.103 meq/ml / sodium lactate 0.028 meq/ml injectable solution (2 sources)Start: 01-01-2022 End: 23-40-3031reocdwmk ringers boluscefdinir 300 mg oral capsule (1 source)Cephalosporin AntibacterialStart: 07-14-2022 End: 66-62-6767Alpdmtam 300 MG Oral Capsule Quantity: 14 Refills: 0 Ordered: 14-Jul-2022 DO Start : 14-Jul-2022 End : 25-Sep-2022 Completeciprofloxacin 500 mg oral tablet (6 sources)Quinolone AntimicrobialStart: 01-05-2022 End: 02-71-9780Ozujlvmzfvnpj HCl - 500 MG Oral Tablet Quantity: 4 Refills: 0 Ordered: 05-Jan-2022 DO Start : 05-Jan-2022 End : 25-Sep-2022 CompleteStart: 01-03-2022 End: 70-58-6356ihen 1 tablet by mouth every twenty-four hoursciprofloxacin (CIPRO) 500 MG tablet Take 1 tablet by mouth every 24 hours for 5 doses 5 tablet 0 01/03/2022 01/05/2022 Discontinued (Stop Taking at Discharge)Start: 01-03-2022 End: 11-30-6426akkflgghzejbv (CIPRO) tablet 500 mgStart: 01-02-2022 End: 50-00-4682bosqlsxfosehn (CIPRO) IVPB 400 mgcyclobenzaprine hydrochloride 10 mg oral tablet (3 sources)Muscle RelaxantStart: 02-17-3680vbfc 1 tablet by mouth twice daily as neededCyclobenzaprine HCl - 10 MG Oral Tablet TAKE 1 TABLET TWICE DAILY NEEDED. Quantity: 6 Refills: 0Ordered: 29-Nov-2022 Yossi Chen MD Start : 29-Nov-2022 Activedicyclomine hydrochloride 10 mg oral capsule (10 sources)AnticholinergicStart: 04-02-2023 End: 26-59-2941wtop 1 capsule by mouth twice dailyDicyclomine 10 mg capsule Discontinued 10 MG PO Twice daily April 12, 2023 1:00am September 05, 2023 9:38amStart: 02-98-4472rpll 1 capsule by mouth twice dailyBentyl 10 MG 1 capsule Orally twice a day for 30 days Mar, Qzesqy69 hr dilTIAZem hydrochloride 180 mg extended release oral capsule (20 sources)Calcium Channel BlockerStart: 04-12-2023 End: 88-99-8781svpe 1 capsule by mouth once dailyDiltiazem Hcl 180 mg capsule,extended release 24hr Discontinued 260 MG PO Daily April 12, 2023 1:00am September 05, 2023 9:39amStart: 73-83-4564fpxr 260 mg by mouth once daily Diltiazem Hcl Active 260 MG PO Daily April 12, 2023 12:00amStart: 61-10-2091zpfq 2 capsules by mouth every twenty-four hours in the morning dilTIAZem CD (Cardizem CD) 180 MG 24 hr capsule TAKE 2 CAPSULES BY MOUTH IN THE MORNING 0 12/27/2022 ActiveStart: 67-04-1214mzrd 2 capsules by mouth once daily in the morningdilTIAZem CD (Cardizem CD) 180 mg 24 hr capsule Take 2 capsules (360 mg) by mouth once daily in themorning. 0 09/08/2022 ActiveStart: 06-08-2022 dilTIAZem HCl ER Coated Beads 180 MG Oral Capsule Extended Release 24 Hour Quantity: 180 Refills: 0Ordered: 08-Sep-2022 DO Start : 08-Jun-2022 ActiveStart: 05-31-2022 End: 80-79-7540vhci 1 tablet by mouth once dailydilTIAZem HCl 360 mg 24 hr tablet Take 1 tablet by mouth once daily. 0 05/31/2022 05/31/2023 Discontinued Start: 04-42-9470dszs 1 capsule by mouth once daily in the morningdilTIAZem CD (Cardizem CD) 240 mg 24 hr capsule Take 1 capsule (240 mg) by mouth once daily in the morning. 0 04/30/2022 ActiveStart: 03-22-2022 End: 89-37-6243vnep 9 capsules by mouth every twenty-four hoursdilTIAZem HCl ER Coated Beads 240 MG Oral Capsule Extended Release 24 Hour Quantity: 30 Refills: 0 Ordered: 30-Apr-2022 DO Start : 22-Mar-2022 End : 25-Sep-2022 CompleteStart: 22-92-6242bwdb 1 capsule by mouth once dailydiltiazem (CARDIZEM CD) 120 MG ER capsule TAKE 1 CAPSULE BY MOUTH DAILY. 30 Capsule 3 01/15/2020 ActiveStart: 51-65-7152ojsb 2 tablets by mouth four times dailydilTIAZem [...] Refills: 0 Ordered: 17-Jul-2022 DO Active End: 89-56-9210mffa 1 capsule by mouth once dailydilTIAZem (CARDIZEM 12 HR) 120 MG extended release capsule Take 120 mg by mouth daily 0 01/05/2022 Discontinued (Stop Taking at Discharge)Comment on above:Take 1 tablet by mouth once daily.1 ml erenumab-aooe 140 mg/ml auto-injector (3 sources)Start: 07-01-2020 End: 16-26-4352cbsmpd 140 mg by subcutaneous injection every monthErenumab-Aooe (Aimovig Autoinjector) 140 mg/mL Auto-Injector Discontinued 140 MG SUBCUT every monthJuly 01, 2020 1:00am April 12, 2023 1:19pmesomeprazole 40 mg delayed release oral capsule (3 sources)Proton Pump InhibitorStart: 01-15-2020 End: 24-06-4310laex 1 capsule by mouth twice daily 30 minutes before mealtime esomeprazole (NEXIUM) 40 MG capsule TAKE 1 CAPSULE BY MOUTH 2 TIMES DAILY (30 MINUTES BEFORE MEALS). 120 Capsule 1 01/15/2020 01/15/2020 Discontinued ([facility] Prescription Brought in as Discontinued)febuxostat 40 mg oral tablet (20 sources)Xanthine Oxidase InhibitorStart: 06-24-2017 End: 03-06-3490wjbl 1 tablet by mouth once dailyFebuxostat 40 mg tablet Discontinued 40 MG PO Daily September 16, 2018 12:00am April 12, 2023 1:19pm Comment on above:Take 40 mg by mouth once daily.FLUoxetine 20 mg oral capsule (20 sources)Serotonin Reuptake InhibitorStart: 02-06-2024 End: 91-79-7641epsl 1 capsule by mouth once dailyFLUoxetine (PROzac) 20 MG capsule Indications: Anxiety Take 1 capsule (20 mg) by mouth Daily 30 capsule 02/06/2024 08/21/2024 Discontinuedgabapentin 300 mg oral capsule (20 sources)Anti-epileptic AgentStart: 13-84-6111jgeq 1 tablet by mouth twice daily as needed for painGabapentin 300 MG Oral Capsule 1 tablet twice daily as needed for pain Quantity: 10 Refills: 0 Ordered: 29-Nov-2022 Yossi Chen MD Start : 29-Nov-2022 ActiveStart: 07-01-2020 End: 45-04-8478aunx 1 tablet by mouth once daily in the eveningGabapentin 300 mg Tablet Extended Release 24 Hr Discontinued 300 MG PO Every evening July 01, 2020 1:00am April 12, 2023 1:19pmStart: 07-01-2020 End: 53-22-3766egkp 300 mg by mouth once daily in the eveningGabapentin Discontinued 300 MG PO Every evening July 01, 2020 12:00am April 12, 2023 12:19pmGabapentin Not-Taking/PRNGabapentin Not-Taking1 ml HYDROmorphone hydrochloride 1 mg/ml cartridge (1 source)Opioid AgonistStart: 01-02-2022 End: 72-47-6516SPVZHsxftsnif (DILAUDID) injection 0.5 mgindocyanine green (IC- GREEN) syringe 5 mg (1 source)Start: 01-02-2022 End: 97-92-5731tomqeewynfo green (IC-GREEN) syringe 5 mgindomethacin 25 mg oral capsule (18 sources)Nonsteroidal Anti-inflammatory DrugStart: 07-01-2020 End: 17-95-6684agjy 1 capsule by mouth twice dailyIndomethacin 25 mg Capsule Discontinued 25 MG PO Twice daily July 01, 2020 1:00am July 02, 2020 11:09amIndomethacin Not-Taking/PRNIndomethacin Not-Takingiohexol (OMNIPaque) 350 mg iodine/mL injection 75 mL (1 source)Start: 02-01-2023 End: 79-55-2145iomrttv (OMNIPaque) 350 mg iodine/mL injection 75 mLketorolac tromethamine 10 mg oral tablet (6 sources)Nonsteroidal Anti-inflammatory Drug, Cyclooxygenase InhibitorStart: 62-27-7791xgiw 1 tablet by mouth every eight hours as needed for painKetorolac Tromethamine 10 MG Oral Tablet TAKE 1 TABLET EVERY 8 HOURS NEEDED FOR PAIN. Quantity: 9 Refills: 0 Ordered: 29-Nov-2022 Yossi Chen MD Start : 29-Nov-2022 ActiveStart: 61-24-4877Davgrtagy Tromethamine 0.5 % Ophthalmic Solution Quantity: 5 Refills: 0 Ordered: 07-Feb-2022 DO Start : 07-Feb-2022 Activelabetalol hydrochloride 5 mg/ml injectable solution (1 source)beta-Adrenergic BlockerStart: 01-04-2022 End: 89-72-5296rjhvzdwlr (NORMODYNE;TRANDATE) injection 20 mgStart: 01-04-2022 End: 73-80-7298jjdobpvbq (NORMODYNE;TRANDATE) injection 20 mg150 ml levoFLOXacin 5 mg/ml injection (1 source)Quinolone AntimicrobialStart: 01-01-2022 End: 74-24-1218momcAPOTtckb (LEVAQUIN) 750 MG/150ML infusion 750 mg50 ml magnesium sulfate 40 mg/ml injection (1 source)Start: 01-01-2022 End: 32-16-3360cesgfispl sulfate 2000 mg in 50 mL IVPB premixmethylPREDNISolone (13 sources)CorticosteroidStart: 34-19-9017Xlcl-Medrol 40 mg Dec, 1 mL ondansetron 4 mg oral tablet (9 sources)Serotonin-3 Receptor AntagonistStart: 98-47-6315Iqbtakyywlh HCl - 4 MG Oral Tablet Quantity: 30 Refills: 0 Ordered: 05-Jan-2022 DO Start : 06-Jan-20 ActiveStart: 55-88-0349xpgb 1 tablet by mouth once daily as needed for nausea ondansetron (ZOFRAN) 4 MG tablet Take 1 tablet by mouth daily as needed for Nausea or Vomiting 30 tablet 0 01/05/2022 Activepantoprazole 40 mg delayed release oral tablet (2 sources)Proton Pump InhibitorStart: 06-06-2023 End: 27-63-4899lvox 1 tablet by mouth once dailyPantoprazole (Protonix) 40 mg tablet,delayed release (DR/EC) Discontinued 40 MG PO Daily 2023 1:00am June 06, 2023 3:03pmprednisoLONE acetate 10 mg/ml ophthalmic suspension (3 sources)CorticosteroidStart: 42-92-5757bpyxjuouEYQN Acetate 1 % Ophthalmic Suspension Quantity: 5 Refills: 0 Ordered: 07-Feb-2022 DO Start: 07-Feb-2022 Svysxj24 hr ranolazine 500 mg extended release oral tablet (2 sources)Anti-anginal End: 05-99-6323bnab 1 tablet by mouth twice daily, then take 1 tablet by mouth every twelve hoursranolazine ER (RANEXA) 500 mg 12 hr tablet Take 500 mg by mouth twice daily. 05/04/2021 Discontinued (Discontinued by another Health Care Provider)Comment on above:Take 500 mg by mouth.rifAXIMin 550 mg oral tablet (4 sources)Rifamycin AntibacterialStart: 06-07-2023 End: 01-19-2727slns 1 tablet by mouth three times dailyRifaximin (Xifaxan) 550 mg tablet Discontinued 550 MG PO Three times daily 42 14 June 10, 2023 3:45pm September 05, 2023 9:39am20 ml ropivacaine hydrochloride 5 mg/ml injection (1 source)Amide Local AnestheticStart: 05-31-2022 End: 87-21-3567fuaglzsjmcm (PF) 5 mg/mL (0.5 %) 50 mg injection (NAROPIN) sertraline 50 mg oral tablet (20 sources)Serotonin Reuptake InhibitorStart: 58-34-9638Tejhwkepbb HCl - 50 MG Oral Tablet Quantity: 30 Refills: 0 Ordered: 12-Oct-2021 DO Start : 12-Oct-2021 Activetake 1 tablet by mouth every twenty-four hoursZoloft 25 MG 1 tablet Orally Once a day Activesertraline (Zoloft) 50 mg tablet Take by mouth. 0 Activesodium bicarbonate 75 mEq in sodium chloride 0.45 % 1,000 mL infusion (1 source)Start: 01-03-2022 End: 51-57-9192jfsgym bicarbonate 75 mEq in sodium chloride 0.45 % 1,000 mL bdyyiqtr3790 ml sodium chloride 9 mg/ml injection (5 sources)Start: 54-72-2278rogacf chloride flush 0.9 % injection 5-40 mLStart: 12-31-2021 End: .9 % sodium chloride infusionStart: .9 % sodium chloride infusiontamsulosin hydrochloride 0.4 mg oral capsule (10 sources)alpha-Adrenergic BlockerStart: 77-29-8349Qlsqlrdmca HCl - 0.4 MG Oral Capsule Quantity: 14 Refills: 0 Ordered: 21-Mar-2022 DO Start : 21-Mar-2022 Activetake 1 capsule by mouth every twenty-four hourstamsulosin (Flomax) 0.4 mg 24 hr capsule Take by mouth. 0 ActivetiZANidine 4 mg oral tablet (13 sources)Central alpha-2 Adrenergic AgonistStart: 11-13-2012 End: 48-48-5888lzjo 1 tablet by mouth at bedtimeTizanidine 4 mg tablet Discontinued 4 MG PO Bedtime May 02, 2018 1:00am April 12, 2023 1: 19pmtriamcinolone acetonide 1 mg/ml topical cream (3 sources)CorticosteroidStart: 12-07-2023 End: 82-56-1456urtmbmpqkaycy (Kenalog) 0.1 % cream Indications: Poison margarita dermatitis Apply topically 2 (two) times a day as needed (pain and swelling) 30 g 2 12/07/2023 12/24/2023 Discontinued (Therapy completed)ubrogepant 100 mg oral tablet (1 source)Start: 06-29-2021 End: 63-44-6044cpnd 2 tablets by mouth once daily as [...] mg oral tablet (5 sources)Vitamin B12 End: 42-15-4152scku 1.25 ug by mouth every weekcyanocobalamin (Vitamin B-12) 1000 MCG tablet Take 1.25 mcg by mouth once a week 06/13/23 Pt not taking 12/24/2023 Discontinued (Therapy completed) Problems Active Problems Problem ClassificationProblemDateDocumented DateEpisodic/ChronicAllergic reactions (13 sources)Allergy status to penicillin; Translations: [Allergy status to other antibiotic agents status]Onset: 561136-90-9369TembsayoIplculr disorders (20 sources)Anxiety; Translations: [Anxiety disorder, unspecified]Onset: 433063-73-3691StqbcnlEajats; peripheral; and visceral artery aneurysms (20 sources)Ectasia of thoracic aorta; Translations: [Thoracic aortic ectasia] Onset: 169272-30-3255VeaszegXdzgafw dysrhythmias (20 sources)Paroxysmal atrial fibrillation; Translations: [Paroxysmal atrial fibrillation]Onset: 79-86-0561BemvxmhXcydanrl (20 sources)Nuclear sclerotic cataract; Translations: [Age-related nuclear cataract, left eye]Onset: 546308-95-9157DvwemutTzuicco kidney disease (20 sources)Chronic kidney disease stage 3; Translations: [Chronic kidney disease, stage 3 (moderate)]Onset: 11-17-2019 Resolved: 05-18-9866GhhqgnmIpymokj kidney disease (3 sources)Chronic kidney disease; Translations: [Chronic kidney disease, stage 3 unspecified]Onset: 48-56-1534Bmbxvvb obstructive pulmonary disease and bronchiectasis (2 sources)Bronchiectasis; Translations: [Bronchiectasis, uncomplicated] 05-38-8355GqhvojxKrjsynpdnnghg of surgical procedures or medical care (20 sources)Hypoparathyroidism following procedure; 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]Onset: 696164-13-8955DcfqoieYwchdud on above:Patient counseled about the signs and symptoms of low calcium. If this occurs he is to report to the [facility] emergency room. He will be sent home on calcium supplementation as well as Rocaltrol. He is to resume his prehospital thyroid medication dosage. I will see him in 1 week.Conditions associated with dizziness or vertigo (20 sources)Meniere's disease; Translations: [Meniere's disease, unspecified ear]Onset: 190309-90-6806KmyleodZzdgdhysxd associated with dizziness or vertigo (6 sources)Dizziness and giddiness; Translations: [Dizzy spells]Onset: 328732-69-5962YdqnbeerFnojmbdzep disorders (5 sources)Cardiac pacemaker in situ; Translations: [Presence of cardiac pacemaker]Onset: 274361-42-0537XxbcdrpYvvgnjveer heart failure; nonhypertensive (2 sources)Chronic combined systolic and diastolic heart failure; Translations: [Chronic combined systolic (congestive) and diastolic (congestive) heart failure]51-09-8928XaexugnIhnjwczq atherosclerosis and other heart disease (20 sources)Atypical angina; 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 forms of angina pectoris] Onset: 843416-08-3223DacesjzVicpkhubq congenital anomalies (1 source)Esophageal web; 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]Onset: 08-15-0216Hkfhpff Disorders of lipid metabolism (20 sources)Hyperlipidemia; Translations: [Hyperlipidemia, unspecified]Onset: 714619-27-9340HkssxigRjbwpttcp of teeth and jaw (4 sources)Infection of tooth; Translations: [Periapical abscess without sinus] 85-97-5788ZqzvxrwuGssmntcriyglnf and diverticulitis (20 sources)Diverticulosis of small intestine; Translations: [Diverticulosis of small intestine without perforation or abscess without bleeding]Onset: 565735-03-9311QjvpcnoSwpyhheabx disorders (20 sources)Gastroesophageal reflux disease; Translations: [Gastro-esophageal reflux disease without esophagitis]Onset: 822393-04-5821QznmoqjOmwlwecps hypertension (20 sources)Essential (primary) hypertension; Translations: [Malignant hypertension]Onset: 04-27-2015 Resolved: 730224-89-3846RamucpzMlfdvxwet hypertension (2 sources)Essential hypertensionOnset: 40-97-2308Kustlmhifshigy ulcer (except hemorrhage) (13 sources)Gastric ulcer without hemorrhage, without perforation AND without obstruction; Translations: [Gastric ulcer, unspecified as acute or chronic, without hemorrhage or perforation]ChronicGastrointestinal hemorrhage (6 sources)Upper gastrointestinal bleeding; Translations: [Gastrointestinal hemorrhage, unspecified]37-88-5160BajayigjZvqosjumoeteb symptoms and ill-defined conditions (20 sources)Post-micturition incontinence ; Translations: [Post-void dribbling] Onset: 783211-03-3886KqjcqccDtnb and other crystal arthropathies (20 sources)Chronic gouty arthritis; Translations: [Idiopathic chronic gout, multiple sites, without tophus (tophi)]Onset: 013107-52-0714Urqrthx Headache; including migraine (20 sources)Migraine without aura, not refractory ; Translations: [Migraine without aura, not intractable, without status migrainosus]Onset: 03-19-2018 01-50-1991ZagmeqtPoqszfdogqx of prostate (20 sources)Benign prostatic hypertrophy with outflow obstruction; Translations: [Benign prostatic hyperplasia with lower urinary tract symptoms]Onset: 751779-05-1215LnzwhqpAsalazhhaaas with complications and secondary hypertension (19 sources)Hypertensive renal disease; Translations: [Hypertensive chronic kidney disease with stage 1 throughstage 4 chronic kidney disease, or unspecified chronic kidney disease]Onset: 644052-37-7324JvahyxpWmsjghsc disorders (1 source)Jennette light chain disease; 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,not elsewhere classified]37-30-7807TcljacsSvpdsbi and fatigue (4 sources)Asthenia; Translations: [Weakness]94-85-1377LhnfzvulRemboyjdqi disorders (1 source)Hormone replacement therapy; Translations: [HORMONE REPLACEMENT THERAPY]Onset: 19-83-9906LwbxpoazOpabecoyknocd mental health disorders (1 source)Other somatoform disorders; Translations: [OTHER SOMATOFORM DISORDERS] Onset: 58-28-9616BnjwgtnYhpeawmfyjq chest pain (20 sources)Chest pain; Translations: [Chest pain, unspecified]Onset: 01-24-2021 88-65-4065WebybweiMvjigcaxlmf deficiencies (20 sources)Vitamin D deficiency; Translations: [Vitamin D deficiency, unspecified]Onset: 926983-74-6153YmksaraGqknnrtymxoqpz (20 sources)Osteoarthritis of elbow; Translations: [Primary osteoarthritis, right elbow]Onset: 816500-89-4490CssaxdvFytlm aftercare (1 source)Other skilled nursing (current) drug therapy; Translations: [OTH CONTACT CENTER SPECIALIST CURRENT DRUG THERAPY]Onset: 26-96-2656DocvflrrZsodi aftercare (1 source)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 anticoagulants; Translations: [SNF CURRNT USE ANTICOAGULANTS]Onset: 53-82-6445ZwiaqzcfLqean aftercare (4 sources)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; Translations: [CONTACT CENTER SPECIALIST CURRENT USE OF ASPIRIN]Onset: 18-86-5632HbuiwumuAtoiu aftercare (1 source)Patient encounter status; Translations: [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 antithrombotics/antiplatelets]91-58-5269JpzrktfyKydhs aftercare (2 sources)Long-term current use of aspirin; Translations: [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]77-49-2557GhglspvaCyhzl and ill-defined heart disease (20 sources)Left ventricular hypertrophy; Translations: [Cardiomegaly]Onset: 983334-25-0073UgtbwjeBbcte and unspecified benign neoplasm (1 source)Benign neoplasm of lymph nodes; Translations: [Benign neoplasm of lymph nodes]Onset: 35-60-7469MqeorzpjPfzmv and unspecified benign neoplasm (1 source)Mass of digestive structure; Translations: [Polyp of stomach and duodenum]32-24-6343RgucotbgWnhaz circulatory disease (20 sources)Presence of other cardiac implants and grafts; 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 specified cardiac device in situ]Onset: 609736-97-2160PlujxeiHhzpo circulatory disease (20 sources)H/O: hypertension; Translations: [Personal history of other diseases of circulatory system]EpisodicOther circulatory disease (3 sources)Personal history of transient ischemic attack (TIA), and cerebral infarction without residual deficits; Translations: [Prsnl hx of TIA (TIA), and cereb infrc w/o resid deficits]Onset: 91-06-2226CttmqnxbKlxga circulatory disease (2 sources)History of cerebrovascular disease; Translations: [Personal history of transient ischemic attack (TIA), and cerebral infarction without residual deficits]92-86-5205BaaurihrAdngm circulatory disease (3 sources)Low blood pressure; Translations: [Hypotension, unspecified] 48-62-5542HpxhoeudCqrnv connective tissue disease (1 source)Presence of artificial knee joint, bilateral; Translations: [Presence of artificial knee joint, bilateral]Onset: 71-90-9963TlftjnlXfljt connective tissue disease (20 sources)Artificial knee joint present; Translations: [Presence of artificial knee joint, bilateral]Onset: 012592-75-4861QvhuzhjYhchj connective tissue disease (20 sources)History of total knee arthroplasty; Translations: [Presence of right artificial knee joint]Onset: 526472-84-7309WxzghvnAtyte connective tissue disease (7 sources)Arthrodesis status; Translations: [Arthrodesis status]Onset: 87-97-7227ZjnykxoaUpgdl connective tissue disease (1 source)H/O: arthrodesis; Translations: [Arthrodesis status]36-50-6643Tjaymlgd Other connective tissue disease (2 sources)Cramp; Translations: [Cramp and spasm]56-06-2937OxfecaxdBpxjy connective tissue disease (2 sources)Pain in bilateral legs; Translations: [Pain in right leg]01-14-2025 EpisodicOther connective tissue disease (1 source)Repeated falls; Translations: [Falls frequently]Onset: 01-07-2025 EpisodicOther diseases of kidney and ureters (13 sources)Secondary hyperparathyroidism; Translations: [Secondary hyperparathyroidism of renal origin]ChronicOther diseases of kidney and ureters (2 sources)Kidney hfputol56-76-9977BmvttfscWjpwl disorders of stomach and duodenum (1 source)Disorder of upper gastrointestinal tract; 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 diseases of stomach and duodenum]69-57-9558RiyvzdbyHvfcn endocrine disorders (20 sources)Hypoparathyroidism; Translations: [Hypoparathyroidism, unspecified] Onset: 741829-37-0867PbdsozlJduzn eye disorders (1 source)Ptosis of eyelid; Translations: [Unspecified ptosis of bilateral eyelids]80-49-5935VechvhpmExyrt eye disorders (6 sources)Acquired ptosis of eyelid of right eye; Translations: [Unspecified ptosis of right eyelid]43-40-4608VzerqinbGfzxc eye disorders (2 sources)Ptosis of right upper eyelid; Translations: [Unspecified ptosis of right eyelid]00-69-6506FblfnffbSzqmf eye disorders (1 source)Unspecified ptosis of right eyelid; Translations: [Ptosis of right eyelid]Onset: 17-80-7429VzoutytfZeqre gastrointestinal disorders (20 sources)Oropharyngeal dysphagia; Translations: [Dysphagia, oropharyngeal phase]Onset: 50-68-6567IjsmomiiCihfq gastrointestinal disorders (13 sources)Swallowing problem; Translations: [Dysphagia, unspecified]Episodic Other gastrointestinal disorders (13 sources)Abnormal deglutition; Translations: [Dysphagia, unspecified]Episodic Other gastrointestinal disorders (6 sources)H/O: abdominal hernia; Translations: [Personal history of other diseases of digestive system] Resolved: 63-39-2704UnmfabzwAnqlh gastrointestinal disorders (1 source)Other dysphagia; 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 dysphagia]Onset: 11-22-2022 EpisodicOther gastrointestinal disorders (10 sources)Diarrhea; Translations: [Diarrhea, unspecified]34-37-4068Cuskviia Other gastrointestinal disorders (8 sources)Diarrhea, unspecified; Translations: [Diarrhea, unspecified]Onset: 00-08-2590PslmnxpkVjdso hereditary and degenerative nervous system conditions (20 sources)Restless legs; Translations: [Restless legs syndrome]Onset: 05-08-2016 Resolved: 756351-73-5154MwtunvcBxrfv nervous system disorders (12 sources)Chronic pain; 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 chronic pain]ChronicOther nervous system disorders (20 sources)Disorder of autonomic nervous system; Translations: [Disorder of the autonomic nervous system, unspecified]Onset: 104649-14-0614SnrzybpOcbxc nervous system disorders (4 sources)Other chronic pain; Translations: [Chronic pain]Onset: 08-03-2021 Resolved: 95-68-7171ZfmqnlmSeosh nervous system disorders (20 sources)Aphasia; Translations: [Aphasia]Onset: 33-78-5734RynnumsQlylh nervous system disorders (1 source)Aphasia; Translations: [APHASIA]Onset: 09-33-1073IodrkrqCpksn nervous system disorders (20 sources)Expressive dysphasia; Translations: [Aphasia]Onset: 01-23-2020 78-37-9633TylyilqWcity nervous system disorders (20 sources)Disorder of muscle; Translations: [Myopathy, unspecified]Onset: 998937-81-7880ZqjprbyKxqjd nervous system disorders (4 sources)Cranial nerve disorder; Translations: [Polyneuropathy, unspecified] 67-14-0071BktiqrwDbczc nervous system disorders (2 sources)Disorder of the autonomic nervous system, unspecified; Translations: [Disorder of the autonomic nervous system, unspecified]Onset: 68-79-6138Dvosmse Other nervous system disorders (2 sources)Polyneuropathy, unspecified; Translations: [Polyneuropathy, unspecified]Onset: 10-71-7725AuniqxoJavse nervous system disorders (2 sources)Cranial nerve -66-6054EgzehckiYhouj nervous system disorders (2 sources)Abnormal gait; Translations: [Unspecified abnormalities of gait and mobility]29-28-0205VaehymcvXeeac nervous system disorders (2 sources)Unspecified abnormalities of gait and mobility; Translations: [Unspecified abnormalities of gait and mobility]Onset: 75-81-7032HicshgyuMrnxv nutritional; endocrine; and metabolic disorders (20 sources)Hypocalcemia; Translations: [Hypocalcemia]Onset: 10-01-2018 78-90-8790TxxczgcDvofb nutritional; endocrine; and metabolic disorders (4 sources)Hypocalcemia; Translations: [HYPOCALCEMIA]Onset: 58-83-4118Gkddygd Other nutritional; endocrine; and metabolic disorders (20 sources)Hypomagnesemia; Translations: [Hypomagnesemia]Onset: 09-06-2020 1953MmkbsogVmbgv upper respiratory disease (20 sources)Vocal cord paralysis; Translations: [Paralysis of vocal cords and larynx, unspecified]Onset: 914009-08-7896LwaxnpcHijqd upper respiratory disease (13 sources)Disorder of vocal cord; Translations: [Paralysis of vocal cords and larynx, unspecified]ChronicOther upper respiratory disease (20 sources)Bilateral partial vocal cord paralysis; Translations: [Bilateral paralysis of vocal cords or larynx, partial]Onset: 149193-98-8306Bddrbpu Other upper respiratory disease (6 sources)Paralysis of vocal cords and larynx, bilateral; Translations: [Paralysis of vocal cords and larynx,bilateral]Onset: 09-92-8051CnoijfbJusgn upper respiratory disease (1 source)Paralysis of larynx; Translations: [Paralysis of vocal cords and larynx, bilateral]66-27-3178CwtdjwoCozkh upper respiratory disease (20 sources)Disorder of vocal cord; 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 diseases of vocal cords]Onset: 045723-44-1549DkkspukmVofip upper respiratory disease (9 sources)Deviated nasal septum; Translations: [Deviated nasal septum]Onset: 227808-31-6834DxxtxqrsFluxc upper respiratory disease (1 source)Abnormal voice; Translations: [Unspecified voice and resonance disorder]10-10-5048WqzktzceHftiw upper respiratory disease (1 source)Dysphonia; Translations: [Hoarseness of voice]Onset: 12-15-2024 EpisodicOther upper respiratory infections (11 sources)Oroantral fistula; 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]Onset: 675106-68-3796KnrxoiiWzmgy upper respiratory infections (6 sources)Acute maxillary sinusitis; Translations: [Acute maxillary sinusitis, unspecified]12-66-5568EiauwfigDjhlogzpok and visceral atherosclerosis (2 sources)Atherosclerosis of aorta; Translations: [Atherosclerosis of aorta] 33-26-0615VhmktrlEertowea codes; unclassified (20 sources)Obstructive sleep apnea syndrome; Translations: [Obstructive sleep apnea (adult) (pediatric)]Onset: 03-01-2020 Resolved: 239324-08-9468BqipnddLthzwsjn codes; unclassified (5 sources)Obstructive sleep apnea (adult) (pediatric); Translations: [Obstructive sleep apnea (adult) (pediatric)]Onset: 96-13-0654YxrnzokPcdmzlar codes; unclassified (2 sources)Sleep apnea, unspecified; Translations: [Sleep apnea, unspecified] Onset: 19-90-0651DnpaxlxYycpwsxg codes; unclassified (1 source)Dependence on other enabling machines and devices; Translations: [Dependence on other enabling machines and devices]Onset: 22-32-4185Ggcbntm Residual codes; unclassified (1 source)Sleep apnea; Translations: [Sleep apnea, unspecified]96-30-0343Pponopm Residual codes; unclassified (2 sources)Acquired absence of other specified parts of digestive tract; Translations: [ACQ ABSENCE OTH PART DIGESTV TRACT]Onset: 28-46-7179Alvgmrdc Residual codes; unclassified (19 sources)Other specified health status; Translations: [Difficulty with CPAP use]Onset: 21-89-5946YedbhxqqFojgofyx codes; unclassified (6 sources)History of excision of intestinal structure; 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 specified postprocedural states]Onset: 401245-32-1879JyivxvzyXjvyxdkoo and history of mental health and substance abuse codes (2 sources)Tobacco use and exposure - -77-4838QjwlowxIsegnispj and history of mental health and substance abuse codes (8 sources)Personal history of nicotine dependence; Translations: [Personal history of tobacco use]Onset: 659043-62-8769RmgjjpshYnhvryfsruk; intervertebral disc disorders; other back problems (20 sources)Cervical spondylosis; Translations: [Spondylosis without myelopathy or radiculopathy, cervical region]Onset: 08-03-2021 Resolved: 09-93-4248AfqsrtmFgjeplt disorders (20 sources)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; Translations: [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, unspecified]Onset: 398231-95-4448LmfqhcsOmlqlablj cerebral ischemia (20 sources)Transient cerebral ischemia; 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]Onset: 14-54-5648EkfygrhGvnrtjixkkdc (1 source)CONTACT W/AND (SUSP) EXPOS COVID-19; Translations: [CONTACT W/AND (SUSP) EXPOS COVID-19]Onset: 73-34-0401Dcfcyjkdmsco (1 source)ELEV LVLS LIVER TRANSAMINASE LVLS; Translations: [ELEV LVLS LIVER TRANSAMINASE LVLS]Onset: 41-41-7449Qdptafnhfjvv (3 sources)Chronic atrial fibrillation, unspecified; Translations: [Chronic atrial fibrillation, unspecified]Onset: 02-85-8528Gwiibqkpuipl (1 source)Other specified disease of esophagus; 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 specified disease of esophagus]Onset: 23-17-4361Oockgkzziqvb (1 source)Chronic migraine with aura without status migrainosus, not intractable; Translations: [Chronic migraine with aura without status migrainosus, not intractable]Onset: 44-83-8858Fecuwqeludoh (1 source)Aneurysm of the ascending aorta, without rupture; Translations: [Aneurysm of the ascending aorta, without rupture]Onset: 01-27-2024 Past or Other Problems Problem ClassificationProblemDateDocumented DateEpisodic/ChronicAbdominal hernia (20 sources)Hiatal hernia; Translations: [Diaphragmatic hernia without mention of obstruction or gangrene]Onset: 22-37-1821WzqzcxdqVztyvmtuh pain (15 sources)Unspecified abdominal pain; Translations: [Left lower quadrant pain] Onset: 97-85-2631YlfzebucCrvie and unspecified renal failure (20 sources)Injury of kidney; Translations: [Acute kidney failure, unspecified] Onset: 96-19-7697KsbewruhQqlod posthemorrhagic anemia (20 sources)Acute posthemorrhagic anemia; Translations: [Acute posthemorrhagic anemia]Onset: 178623-02-0161MpvlglawTrhybzh tract disease (20 sources)Gallstone; Translations: [Calculus of gallbladder without cholecystitis without obstruction]Onset: 448881-90-8591AbypquhnJlhyornb of urinary tract (20 sources)Calcium renal calculus ; Translations: [History of calculus of kidney]Onset: 30-26-5421RmpmtdnwMigttdc dysrhythmias (2 sources)Palpitations; Translations: [Palpitations]Onset: 62-02-9462Swtkdndn Complications of surgical procedures or medical care (20 sources)Postoperative seroma; Translations: [Postprocedural seroma of a circulatory system organ or structure following other procedure]Onset: 955106-56-4496WyvmgovzMlbcaizu mellitus without complication (20 sources)Hyperglycemia; Translations: [Hyperglycemia, unspecified]Onset: 44-02-8742HocepejwM Codes: Natural/environment (1 source)Other contact with dog, initial encounter; Translations: [OTHER CONTACT WITH DOG INITIAL ENC]Onset: 15-19-1894GtddwgytAzfxh and electrolyte disorders (20 sources)Dehydration; Translations: [Dehydration]Onset: 49-07-7609Xjnsmail Gastroduodenal ulcer (except hemorrhage) (20 sources)Acute gastric ulcer; Translations: [Acute gastric ulcer without hemorrhage or perforation]Onset: 97-47-1526QowxybfnRlxyqdljrehga symptoms and ill-defined conditions (20 sources)History of acute renal failure; Translations: [Personal history of other diseases of urinary system]Onset: 387181-94-5381XfeewfayFvaqlspr; including migraine (20 sources)Headache disorder; 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 headache syndrome]Onset: 648092-25-4956OyyycfcqZikm disorders (20 sources)Mood disordersOnset: Nausea and vomiting (20 sources)Nausea and vomiting; Translations: [Nausea with vomiting, unspecified]Onset: 37-14-2420SumwlirrQqcoktxfedpnj gastroenteritis (20 sources)Noninfectious gastroenteritis; Translations: [Noninfective gastroenteritis and colitis, unspecified]Onset: 09-22-2024 Resolved: 59-12-452571808977-18-4259ZenmsvunMhsmhlfruis deficiencies (20 sources)Vitamin B12 deficiency (non anemic); Translations: [Deficiency of other specified B group vitamins]Onset: 398058-29-2584HidybgjsJforv aftercare (1 source)snf (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 of antithrombotics/antiplatelets; Translations: [snf (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 ofantithrombotics/antiplatelets]Onset: 66-37-9051WaukhyakGawel and unspecified benign neoplasm (1 source)Polyp of stomach and duodenum; Translations: [Polyp of stomach and duodenum]Onset: 55-59-0552BcpmihxsGmyhq circulatory disease (20 sources)History of transient ischemic attack; Translations: [Personal history of transient ischemic attack (TIA), and cerebral infarction without residual deficits]Onset: 39-54-5248RchbobreFsbca circulatory disease (5 sources)Orthostatic hypotension; Translations: [Orthostatic hypotension] Onset: 663921-39-1632KqlptbrqLvwjs circulatory disease (2 sources)Orthostatic hypotension; Translations: [Orthostatic hypotension] Onset: 24-38-6996CgpguxkkGtwni connective tissue disease (3 sources)Pain in left foot; Translations: [PAIN IN LEFT FOOT]Onset: 11-16-2021 EpisodicOther connective tissue disease (5 sources)Pain in right leg; Translations: [PAIN IN RIGHT LEG]Onset: 10-03-2021 EpisodicOther connective tissue disease (1 source)Pain in left leg; Translations: [PAIN IN LEFT LEG]Onset: 10-05-2021 EpisodicOther connective tissue disease (20 sources)Recurrent falls ; Translations: [Repeated falls]Onset: 02-05-2022 82-48-0858HhcvehseLndaq connective tissue disease (6 sources)Pain in right armOnset: 02-04-8719KqmqyobcAeslk diseases of kidney and ureters (20 sources)Hydronephrosis; Translations: [Unspecified hydronephrosis]Onset: 060857-65-8570NybovgdqXlrvn disorders of stomach and duodenum (1 source)Other diseases of stomach and duodenum; 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 diseases of stomach and duodenum]Onset: 25-39-6542JkxwprjiKtsel gastrointestinal disorders (20 sources)Dysphagia; Translations: [Dysphagia, pharyngoesophageal phase]Onset: 782294-60-9152CgzddfduFlkur gastrointestinal disorders (20 sources)Difficulty swallowing solids; Translations: [Dysphagia, unspecified] Onset: 311382-62-4434AwkzxobjFdenk gastrointestinal disorders (2 sources)Other specified diseases of intestine; Translations: [OTHER SPECIFIED DISEASES INTESTINE]Onset: 29-11-2822VpicyjmkKqeqt gastrointestinal disorders (6 sources)Dysphagia, oropharyngeal phase; Translations: [Dysphagia, oropharyngeal phase]Onset: 75-21-8725SdctclwxPtfoa gastrointestinal disorders (3 sources)Dysphagia, unspecified; Translations: [Dysphagia, unspecified]Onset: 45-65-3318ZanldpfiQxjwg injuries and conditions due to external causes (20 sources)Muscle strain; Translations: [Unspecified site of sprain and strain] Onset: 794897-31-0985QrfyoigaQimhr injuries and conditions due to external causes (20 sources)Injury of head; Translations: [Unspecified injury of head, initial encounter]Onset: 619543-52-1359DpdfifjuLejrh liver diseases (20 sources)Jaundice; Translations: [Unspecified jaundice]Onset: 01-01-2022 EpisodicOther lower respiratory disease (20 sources)Dyspnea; Translations: [Shortness of breath]Onset: 09-16-2018 35-51-6041SbzexyfrTejnn lower respiratory disease (20 sources)Apnea; Translations: [Apnea, not elsewhere classified]Onset: 85-93-2839ZnpedhiqHzcbs lower respiratory disease (2 sources)Other forms of dyspnea; 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 forms of dyspnea]Onset: 34-10-7368AatkgwcnNwnbb nervous system disorders (20 sources)Paresthesia of lower extremity; Translations: [Paresthesia of skin] Onset: 447207-19-2152WeqfsydeBucjy nervous system disorders (20 sources)Skin sensation disturbance; Translations: [Unspecified disturbances of skin sensation]Onset: 538558-09-3037NsoqmdzuSqdhn nervous system disorders (1 source)Unspecified disturbances of skin sensation; Translations: [Disturbance of skin sensation]Onset: 53-49-0065IvollxapNctli non-traumatic joint disorders (20 sources)Pain in elbow; Translations: [Pain in right elbow]Onset: 10-01-2022 10-11-5789EudheghtJxcsf non-traumatic joint disorders (9 sources)Pain in left shoulderOnset: 06-21-2021 Resolved: 52-11-9550WhhgvwxhBcnni non-traumatic joint disorders (20 sources)Arthralgia of the upper arm; Translations: [Pain in unspecified elbow]Onset: 989908-31-9338CkdtevjhVzttk non-traumatic joint disorders (20 sources)Pain in upper arm; Translations: [Pain in unspecified elbow]Onset: 127532-27-4106RmnpiymaCmevy nutritional; endocrine; and metabolic disorders (20 sources)H/O: endocrine disorder; Translations: [Personal history of other endocrine, nutritional and metabolic disease]Onset: 252155-65-5577Ipyjqoij Other screening for suspected conditions (not mental disorders or infectious disease) (20 sources)Electrocardiogram abnormal; Translations: [Abnormal electrocardiogram [ECG] [EKG]]Onset: 04-08-2024 Resolved: 435584-72-2029FhxfwllqPucpe upper respiratory disease (20 sources)Hoarse; Translations: [Dysphonia]Onset: 429580-26-9110Xlkasbcg Other upper respiratory disease (1 source)Other diseases of vocal cords; 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 diseases of vocal cords]Onset: 55-54-6935EcloxlmeTdgxiwcefy disorders (not diabetes) (20 sources)Acute pancreatitis without necrosis or infection, unspecified; Translations: [Biliary acute pancreatitis without necrosis or infection]Onset: 17-52-5175WfmkabqaEletecbi codes; unclassified (20 sources)History of anesthesia problem; Translations: [Personal history of other specified conditions]Onset: 883725-16-2749LvrtixgiUqdyvsvy codes; unclassified (20 sources)History of radiofrequency ablation operation for arrhythmia; 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 specified postprocedural states]Onset: EpisodicResidual codes; unclassified (20 sources)History of total thyroidectomy; 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 specified postprocedural states]Onset: 346562-80-7645OggtqhicQjydkvur codes; unclassified (20 sources)Disorder of digestive tract; Translations: [Acquired absence of other specified parts of digestive tract]Onset: 09-22-2024 Resolved: 071285-84-2741ThhlblhjPvcicyc detachments; defects; vascular occlusion; and retinopathy (20 sources)Detachment of retina of right eye; Translations: [Serous retinal detachment, right eye]Onset: 020235-83-5469DdqepdgfOqwidemiog (except in labor) (1 source)Sepsis, unspecified organism; Translations: [SEPSIS UNSPECIFIED ORGANISM]Onset: 99-89-8258MqtiuigpEveayoagkfs; intervertebral disc disorders; other back problems (20 sources)Low back pain; Translations: [Low back pain]Onset: 03-01-2020 29-28-6363SszazlvgVxlaxdxvvro injury; contusion (1 source)Contusion of left lesser toe(s) without damage to nail, initial encounter; Translations: [CONTUS LTLESR TOES W/O DMG NL INIT]Onset: 11-17-2021 EpisodicSyncope (20 sources)Syncope and collapse; Translations: [Syncope and collapse]Onset: 995825-01-1459CndenkciDhlinhf disorders (20 sources)Disorder of thyroid gland; Translations: [Disorder of thyroid, unspecified]Onset: 385668-42-8198LdacoasuEaqeqolpzlvg (1 source)Aneurysm of the ascending aorta, without rupture; Translations: [Aneurysm of the ascending aorta, without rupture]Onset: 83-58-5299Iijnhlf tract infections (1 source)Urinary tract infection, site not specified; Translations: [UTI SITE NOT SPECIFIED]Onset: 02-16-1848TuelpocoCCEFPFX: Highlighted row has not occurred!Residual codes; unclassified (17 sources)DiseaseEpisodic Results Test NameValueInterpretationReference RangeFacilityCNOVon 96-21-9664QWILUbjqqs [facility] YOLI ANTUNEZ ([id number]) 1955 M Date Time Provider Department 02/11/25 11:45 AM ABBY BERNSTEIN During your visit today, we recorded the following information about you: Pulse Blood pressure Weight Height 84/minute 116/87 113.4 kg 1.981 m Abby Bernstein APRN.CNP 02/12/2025 3:20 PM Signed [facility] Follow Up Yoli Antunez is a 69 year old male who presents today for follow up regarding [place] Recording using ambient AI software for draft documentation of the visit was discussed with the patient/authorized kiosk sales representative; all questions welcomed and answered. Patient/authorized kiosk sales representative agreed to proceed PMH: AAA Arthritis CKD [...] assess for Parkinsonian syndrome (more content not included)...[facility] ClevelandOrders Onlyon 34-20-2465Qyxcbm Only [id number] Yoli Antunez Jr. 1955 M Date Provider Department Center 02/05/2025 LALITO MCDUFFIE [facility] Family History Problem Relation Age of Onset Hypertension Mother Cancer Mother Stroke Mother Hypertension Father Aortic aneurysm Father Cancer Father Aortic aneurysm Paternal Grandfather Sudden Neg Hx Family Status - Relation Status Age at Mother Father Paternal Grandfather Neg HxNormalUniversity of [facility] – IrvingNM brain spect datscanon 92-40-3291PJ brain spect datscanFLOWER [place] [address] Nuclear Medicine Report Signed Patient: Yoli Antunez Jr MR#: [id number] : 1955 Acct:[id number] Age/Sex: 69 / M ADM Date: 01/29/25 Loc: [place] Room: Type: [facility] Attending Dr: Maryann Armstrong MD Copies to: NON STAFF Chaz Smith Jr, DO Umar Shuaib, MD Ordering Provider: NON STAFF Date of Service: 01/29/25 NM/NM brain spect datscan: R26.[address] Maryann Armstrong M.D [facility] Nuclear medicine Efraín scan. Reason for exam: [...] Jr., D.O. 01/29/2025 12:56 PM Dictation Location: [place] [address] Transcribed By: [facility] 01/29/25 1256 Dictated By: Chaz Smith Jr, DO 01/29/25 1246 Signed By: 01/29/25 1256JudithFormerly [facility] Physician GroupCNPNon 39-01-5274QBTTLspxvognw (NREUS2) HARMONYSUSHILAYOLI ([id number]) 1955 M Date Time Provider Department 01/19/25 SHELDON HUDSON NREUS2 During your visit today, we recorded the following information about you: Marybeth Quezada 01/19/2025 1:09 PM Signed [facility] phoned - they are unable to do the CT with the DaTScan and want to know if ok to just do DaTScan - if so they need an updated order faxed to them. [facility] (f) [phone] (p) [phone] Pt is already scheduled and they have [...] and mobility [R26.9] Order(s):NM BRAIN TREMOR SPECT/CT [[id number]] Order #: [id number] FUTURE Prescriptions as of 01/20/2025 - sotalol [...] Encounter Status:Closed by MARYANN ARMSTRONG MD on [facility]/25[facility] [id number]-[id number] Yoli Antunez Jr. 1955 M Date Provider Department Center 01/19/2025 Guera-YANDEL SHEN CARD [facility] Family History Problem Relation Age of Onset Hypertension Mother Cancer Mother Stroke Mother Hypertension Father Aortic aneurysm Father Cancer Father Aortic aneurysm Paternal Grandfather Sudden Neg Hx Family Status - Relation Status Age at Mother Father Paternal Grandfather Neg Hx Level of Service:59665 CO OFFICE/OUTPATIENT ESTABLISHED MOD MDM 30 MIN (25) Reason for Visit and Comments: Follow-up [328639] - Patient is here today for a follow up [facility] ER on 01/10/2025. Patient states if he does anything at all he gets chest pain, SOB, blood pressure drops, dizziness/lightheadedness, which causes him to fall, profuse sweating, thinks he had about of A-Fib, patient doesn't feel is pacemaker is kicking in when his blood pressure drops down. Atrial Fibrillation [80] Hypertension [474387] Coronary Artery Disease [187] Transient Ischemic Attack [374023] Hyperlipidemia [182] Chest Pain [327412] LVH [Other] Fatigue [46] Shortness of Breath [972128]NormalJoint Township District Memorial HospitalCNPNon [id number] (NREUS2) YOLI ANTUNEZ ([id number]) 1955 M Date Time Provider Department 01/11/25 SHELDON HUDSON NREUS2 During your visit today, we recorded the following information about you: [place] [facility] [place] 01/11/2025 10:45 AM Signed Pt phoned - [facility] needs a faxed request for MRI brain image to be pushed over from June 2024. [facility] (f) [phone] Tristen Pickensgertrude Isauro 01/15/2025 11:50 AM Signed Request faxed Allergies As of Date: 01/11/2025 Noted Allergy Reaction PENICILLINS 09/12/2000 16 - Unknown TIKOSYN (DOFETILIDE) 07/26/2022 14 - Other: See Comments Comments: Aphasia, dizzy, muscle cramps VANCOMYCIN 07/26/2022 10 - Anaphylaxis Date Reviewed: 01/07/2025 Reviewed by: Vishal Alston MA - Fully Assessed Reason for Visit: Imaging Request [Other] Cmt: [facility] Prescriptions as of 01/15/2025 - [...] intractable*05/31/2022 Encounter Status:Closed by CJ PICKENS on [facility]/25[facility] [id number] Visit (NREUS2) YOLI ANTUNEZ ([id number]) 1955 M Date Time Provider Department 01/07/25 4:00 PM SHELDON HUDSON NREUS2 During your visit today, we recorded the following information about you: Pulse Blood pressure 82/minute 122/84 Sheldon Hudson MD 01/07/2025 4:37 PM Signed [facility] - NEW PATIENT EVALUATION Recording using ambient Pro 3 Games software for draft documentation of the visit was discussed with the patient/authorized kiosk sales representative; all questions welcomed and answered. Patient/authorized kiosk sales representative agreed to proceed Primary Movement Disorders Neurologist: Sheldon Hudson MD Primary Movement Disorders DEBBI: Not yet assigned Referring Provider: Abby Bernstein [address] [facility] [address] Primary Care Provider: Radha Burris MD [address] [facility] [phone] Dear Abby Bernstein: Thank you for referring [...] Row Office Visit from 01/07/2025 in [facility] App[facility]ment from 01/04/2025 in [facility] Global Physical Health T Score 39.8 39.8 Global Mental Health T Score 45.8 45.8 0-10 Standard Pain Scale 3 3 *PROMIS-10 scoring scale: mean = 50, over 50 is above average, under 50 is below average ALLERGIES Allergen Reactions Penicillins Unknown Tikosyn [Dofetilide] Other: See Comments Aphasia, dizzy, muscle cramps V (more content not included)...NormalPremier Health Visiton [id number]-up [id number] Yoli Antunez Jr. 1955 M Date Provider Department Center 12/31/2024 Tami-MARQUITA VILCHIS [facility] Family History Problem Relation Age of Onset Hypertension Mother Cancer Mother Stroke Mother Hypertension Father Aortic aneurysm Father Cancer Father Aortic aneurysm Paternal Grandfather Sudden Neg Hx Family Status - Relation Status Age at Mother Father Paternal Grandfather Neg Hx Level of Service:44789 CO OFFICE/OUTPATIENT ESTABLISHED MOD MDM 30 [facility] ACETYLCHOLINE REC BINDING ABon 12-16-2024 [facility] ACETYLCHOLINE BINDING, QUALNegativeNegativeNOMS HealthcareComment on above: Anti-acetylcholine receptor binding antibody test is used as an aid in diagnosis of myasthenia gravis. A negative result cannot exclude myasthenia gravis. Clinical correlation is required.[facility] ACHR BIND AB SER-SCNC<0.02NINF - 0.21 nmol/LNOMS HealthcareSpecimen Type: BLOOD SPECIMEN Ordering Facility: [facility] Address: [address] [place] [address] Original Ordering Provider: ABBY GARCIA HealthcareACETYLCHOLINE REC BINDING ABon [id number] BINDING, QUALNegativeNormalNegative [facility] on above:Order Comment: Specimen Type: BLOOD SPECIMEN Ordering Facility: [facility] Address: [address] [place], [place] [address]Result Comment: Anti-acetylcholine receptor binding antibody test is used as an aid in diagnosis ofmyasthenia gravis. A negative result cannot exclude myasthenia gravis. Clinical correlation is required.Performed By: #### ACHRAB #### [facility] CLIA [id number] [address] [place] [address] [facility] CANCER CENTERAcetylcholine receptor binding Ab (S) [Moles/Vol]<0.02Normal<0.21[facility] on above:Order Comment: Specimen Type: BLOOD SPECIMEN Ordering Facility: [facility] Address: [address] [place], [place] [address]Performed By: #### ACHRAB #### [facility] CLIA [id number] [address] [place] [address] UNITED STATES OF AMERICACNPNon [id number] Telephone (NENMMN) YOLI ANTUNEZ ([id number]) 1955 M Date Time Provider Department 12/15/24 DAY LEXIYRIS Peoples NENMMN During your visit today, we recorded the following information about you: Shaylee Sweet 12/15/2024 11:39 AM Signed Type of record received: Labs Records received from: [employer] Records received via: Faxed Records scanned into The FeedRoom: Yes Records have been forwarded to: Day [...] intractable*05/31/2022 Encounter Status:Closed by SHAYLEE SWEET on 12/16/24[facility] [id number] Visit (NESCMN) YOLI ANTUNEZ ([id number]) 1955 Ric[place]le Date Time Provider Department 11/10/24 11:45 AM [facility] During your visit today, we recorded the following information about you: Pulse Blood pressure Weight Height 83/minute 127/86 111.1 kg 1.981 m Lexi Bernsteinyris Peoples APRN.CREOSOTING ENGINEER 11/10/2024 1:31 PM Signed [facility] Follow Up Yoli Antunez [...] He was seen by Dr. Vilchis at [facility] who would like to place [...] the dizzy spells at (more content not included)...NormalClinton Memorial Hospital ClevelandOrders Onlyon [id number] Only [id number] Yoli Antunez JrAmarjit 1955 M Date Provider Department Center 11/06/2024 LALITO MCDUFFIE [facility] Family History Problem Relation Age of Onset Hypertension Mother Cancer Mother Stroke Mother Hypertension Father Aortic aneurysm Father Cancer Father Aortic aneurysm Paternal Grandfather Sudden Neg Hx Family Status - Relation Status Age at Mother Father Paternal Grandfather Neg HxNormalUniversity Akron Children's HospitalOperative Reporton 10-21-2024 Operative ReportOperative Report SURGERY DATE: [...] to the Operating Room Suite at the [facility] at which time general anesthesia was [...] stable and satisfactorycondition. Hussain Quezada Dictated: 10/07/2024 [id number] Transcribed: 10/07/2024NoKettering HealthComment on above:Result Comment: Electronically Signed By: Lalito [...] right maxillary antrostomy with excision Anesthesia type: General.Holzer HospitalComment on above: Result Comment: wrong folder Electronically Signed By: Lalito Miller DO\.br\Date and Time Signed: 10/07/24 14:43 EDTOrders Onlyon [id number] [id number] Yoli Antunez Jr. 1955 M Date Provider Department Center 10/13/2024 Jan-CRISTINA CORRIGAN CARD [facility] Family History Problem Relation Age of Onset Hypertension Mother Cancer Mother Stroke Mother Hypertension Father Aortic aneurysm Father Cancer Father Aortic aneurysm Paternal Grandfather Sudden Neg Hx Family Status - Relation Status Age at Mother Father Paternal Grandfather Neg HxNormalUniversity of Nocona General Hospitalurgical Pathology Reporton [id number] Pathology Report[address] [place] [address]- Surgical Pathology Report Collected Date/Time: 10/07/2024 14:44 [...] recognition technology and might contain unintended computerized process control manager errors.Holzer HospitalComment on above:Performed By: #### [id number] #### [facility] [address] [place] [id number] OR Intraoperative Recordon [id number] OR Intraoperative RecordMain OR Intraoperative Record IntraOp Document Type FT Summary Primary Physician: Lalito Miller DO Finalized Date/Time: 10/08/24 11:28:03 Pt. Name: YOLI ANTUNEZ JR/Sex: 1955 Male Med Rec #: [id number] Physician: Lalito Miller DO Financial #: [id number] Pt. Type: A Room/Bed: [facility]04[facility]22 Admit/Disch: 10/07/24 11:04:48 - 10/07/24 17:10:00 Institution: [...] Nair Role Performed Anesthesiologist Surgeon - Primary Panelboard Tank Pumper - Relief Supply Chain Intern Time In 10/07/24 12:51:00 10/07/24 12:51:00 10/07/24 [...] Madison A Role Performed Scrub - Relief Panelboard Tank Pumper - Primary Scrub - Primary Time In [...] EXCISION Primary Procedure Yes No Primary Surgeon Lailto Miller DO, DO, Paul S Start 10/07/24 [...] Assessment (Pre Procedure) F (more content not included)...Holzer HospitalDischarge Instructionson [id number] Instructions Discharge Instructions HRAMONY PAGE YOLI M :1955 Visit Date:10/07/2024 Inpatient Discharge Instructions Your Care Team Admitting Physician - Lalito Miller DO Referring Physician - aLlito Miller DO Reason for Your Visit RIGHT CHRONIC SINUSITIS Your Diagnosis Acute post-operative pain Chronic right maxillary sinusitis Nasal septal deviation Tests Performed Pathology Tissue Exam -- Results Pending -- Please visit your patient portal for your results or contact your primary care physician. This Is Your Medications List acetaminophen-hydrocodone (Orlinda 325 mg-5 mg oral tablet) calcitriol (calcitriol [...] Follow Up with Lalito Miller When: Where: [facility] [address] [place] [phone] Business (1) Medications What How Much When Why Instructions Next Dose New acetaminophen-hydrocodone (Orlinda 325 mg-5 mg oral tablet) 1 Tablets By Mouth Every 4 hours as needed for for pain Acute post-operative pain Duration: 7 Days Pickup at [facility] Unchanged calcitriol (calcitriol [...] Mouth 2 times a day Pharmacy Information [facility]: [address] [place], [place] [phone] Test Results No qualifying data available. Allergies [...] High blood pressure Kidney disease Education Materials [place], [place] Lalito Miller, DO FUNCTIONAL ENDOSCOPIC SINUS SURGERY INFORMATION SHEET WHY DO I NEED FUNCTIONAL ENDOSCOPIC SINUS SURGERY? Your doctor has recommended functional endoscopic sinus surgery because maximum medical therapy (computer terminal operator antibiotics, mucus thinners and nasal sprays) [...] ARE INVOLVED IN FUNCTIONAL (more content not included)...Holzer HospitalComment on above:Result Comment: Electronically Signed By: Shamika [...] right maxillary antrostomy with excision Anesthesia type: General.Holzer HospitalComment on above: Result Comment: Electronically Signed By: Lalito Miller DO\.br\Date and Time Signed: 10/07/24 14:43 EDTInpatient Patient Summaryon [id number] Patient SummaryInpatient Patient Summary [place] [id number] [facility] Clinical Discharge Instructions PERSON INFORMATION Name: YOLI ANTUNEZ JR [facility]#:[id number] PHYSICIANS Admitting Physician: Lalito Miller DO Attending Physician: Lalito Miller DO PCP: RADHA BURRIS MD Discharge Diagnosis: Chronic right maxillary sinusitis; Nasal septal deviation Comment: PATIENT EDUCATION INFORMATION Instructions: [place] Information 2 (Custom) Medication Leaflets: Follow up: With: Address: When: Lalito Miller [facility] [place] [address] [place] [phone] Business (1) MEDICATION LIST New Medications [facility], [address] [place], [place] [id number], [phone] acetaminophen-hydrocodone (Orlinda 325 mg-5 mg oral tablet) 1 Tablets [...] Tablets By Mouth 2 times a day. Comment:Holzer HospitalMain OR PACU I Recordon [id number] OR PACU I RecordMain OR PACU I Record PACU Phase I Document Type FT Summary Primary Physician: Lalito Miller DO Finalized Date/Time: 10/07/24 16:07:17 Pt. Name: HARMONY PAGE YOLIGIANA Chandler/Sex: 1955 Male Med Rec #: [id number] Physician: Lalito Miller DO Financial #: [id number] Pt. Type: A Room/Bed: [facility] Admit/Disch: 10/07/24 11:04:48 - Institution: Case [...] Signatures Signed By: Radha Barry RN 10/07/24 16:07Holzer HospitalMain OR PACU II Recordon [id number] OR PACU II RecordMain OR PACU II Record PACU Phase II Document Type FT Summary Primary Physician: Lalito Miller DO Finalized Date/Time: 10/07/24 17:19:40 Pt. Name: MYKELDIEGOYOLI Schuler JR./Sex: 1955 Male Med Rec #: [id number] Physician: Lalito Miller DO Financial #: [id number] Pt. Type: A Room/Bed: [place] [address] Admit/Disch: 10/07/24 11:04:48 - Institution: Case Times [...] Signatures Signed By: Polly Salgado RN 10/07/24 17:19NoKettering HealthMain OR Preoperative Recordon [id number] OR Preoperative RecordMain OR Preoperative Record PreOp Document Type FT Summary Primary Physician: Lalito Miller DO Finalized Date/Time: 10/07/24 13:20:13 Pt. Name: YOLI ANTUNEZ JR/Sex: 1955 Male Med Rec #: [id number] Physician: Lalito Miller DO Financial #: [id number] Pt. Type: A Room/Bed: [place] [address] Admit/Disch: 10/07/24 11:04:48 - Institution: Case Times [...] Document Signatures Signed By: Trisha Mcleod 10/07/24 13:20NormalSelect Medical Specialty Hospital - Cleveland-FairhillOutpatient Surgery Discharge Instructionon [id number] Surgery Discharge InstructionOutpatient Surgery Discharge Instruction [address] [address] Patient Discharge Instructions PERSON [...] Follow up: With: Address: When: Lalito Miller [facility] [place] [address] [place] [phone] Business (1) Pharmacy Information: You may receive a survey from [employer] asking you to rate your care experience. Your feedback is important and will help us understand what we do well and how we can improve the quality of care we provide to you, your loved ones and our community. It???s an honor to serve you. Thank you for choosing [facility] HERE ARE THE MEDICATION CHANGES THAT OCCURRED DURING YOUR HOSPITAL STAY New Medications [facility], [address] [place] [phone], [phone] acetaminophen-hydrocodone (Orlinda 325 mg-5 mg oral tablet) 1 Tablets [...] times a day. PATIENT EDUCATION INFORMATION Instructions: [place], [place] Lalito Miller, DO FUNCTIONAL ENDOSCOPIC SINUS SURGERY INFORMATION SHEET WHY DO I NEED FUNCTIONAL ENDOSCOPIC SINUS SURGERY? Your doctor has recommended functional endoscopic sinus surgery because maximum medical therapy (skilled nursing antibiotics, mucus thinners and nasal sprays) has [...] the brain. Your d (more content not included)...Holzer HospitalOffice Visiton [id number]-up [id number] Yoli Antunez Jr. 1955 M Date Provider Department Center 10/01/2024 [facility] Family History Problem Relation Age of Onset Hypertension Mother Cancer Mother Stroke Mother Hypertension Father Aortic aneurysm Father Cancer Father Aortic aneurysm Paternal Grandfather Sudden Neg Hx Family Status - Relation Status Age at Mother Father Paternal Grandfather Neg Hx Level of Service:11098 CO OFFICE/OUTPATIENT ESTABLISHED MOD MDM 30 MIN Reason for Visit and Comments: Coronary Artery Disease [187] Chest Pain [215067] Hypotension [407] Atrial Fibrillation [80]NormalJoint Township District Memorial HospitalBMPon 60-36-2120Ggnuf gap [Moles/Vol]12 mmol/LNormal6-16[facility] Comment on above:Performed By: #### [id number] #### [facility] [address] [place], [place] [address]LAG/Creat Ratio22 No PtgqfXtmt71-98FcljsmSelect Medical Specialty Hospital - Cleveland-Fairhill Comment on above:Performed By: #### [id number] #### [facility] [address] [place], [place] [address]Jdlnsyf [Mass/Vol]8.0 mg/dLLow8.9-11.1FMercy Health St. Anne HospitalComment on above:Performed By: #### [id number] #### [facility] [address] [place], [place] [address]Kbfpizjq [Moles/Vol]106 mmol/RAiyzxc780-874QdkigpSelect Medical Specialty Hospital - Cleveland-FairhillComment on above:Performed By: #### [id number] #### [facility] [address] [place], [place] [address]MX3 [Moles/Vol]25 mmol/URbpmcd00-31HulgcxSelect Medical Specialty Hospital - [facility]-Fairhill Comment on above:Performed By: #### [id number] #### [facility] [address] [place], [place] [address]Vmubuumvbu [Mass/Vol]1.3 mg/dLNormal0.5-1.3FMercy Health St. Anne HospitalComment on above:Performed By: #### [id number] #### [facility] [address] [place], [place] [address]Isekyga [Mass/Vol]86 mg/yLJsxmpo66-118SxllfrSelect Medical Specialty Hospital - Cleveland-FairhillComment on above:Performed By: #### [id number] #### [facility] [address] [place], [place] [address]Oggaplvha [Moles/Vol]4.2 mmol/LNormal3.5-5.3FMercy Health St. Anne HospitalComment on above:Performed By: #### [id number] #### [facility] [address] [place], [place] [address]Lvbkkz [Moles/Vol]139 mmol/RWnwoof463-731PbskocSelect Medical Specialty Hospital - Cleveland-FairhillComment on above:Performed By: #### [id number] #### [facility] [address] [place], [place] [address]Iafg nitrogen [Mass/Vol]29 mg/dLHigh5-21[facility] Cleveland-FairhillComment on above:Performed By: #### [id number] #### [facility] [address] [place], [place] [address]LZG w/ Auto Diffon 39-51-0235Dvoljzin Absolute0.0 E9/LNormal 0.0-0.2FMercy Health St. Anne HospitalComment on above:Performed By: #### [id number] #### [facility] [address] [place], [place] [address]Bhcjfzreb/100 WBC (Bld)0.6 %Normal0.0-2.0[facility] - Cleveland-FairhillComment on above:Performed By: #### [id number] #### [facility] [address] [place] [address]Hoq Absolute0.2 E9/LNormal0.0-0.5FMercy Health St. Anne Hospital Comment on above:Performed By: #### [id number] #### [facility] [address] [place] [address]Fniclypazjk/100 WBC (Bld)4.0 %Normal0.0-8.0[facility] Cleveland-FairhillComment on above:Performed By: #### [id number] #### [facility] [address] [place] [address]Cgbivueqlmv distribution width (RBC) [Ratio]14.4 %High10.9-14.2 [facility] Cleveland-FairhillComment on above:Performed By: #### [id number] #### [facility] [address] [place], [place] [address]Rspfdqkcgn (Bld) [Volume fraction]38.6 %Pxglzy45.7-49.0[facility] Cleveland-FairhillComment on above:Performed By: #### [id number] #### [facility] [address] [place] [address]Hepaprrkdo (Bld) [Mass/Vol]12.8 g/dLLow13.5-17.5FMercy Health St. Anne HospitalComment on above:Performed By: #### [id number] #### [facility] [address] [place] [address]Jyhsy Absolute1.7 E9/LNormal1.0-4.0[facility] Comment on above:Performed By: #### [id number] #### [facility] [address] [place] [address]Ndxyeelegcf/100 WBC (Bld)29.0 %Stmwkx42.0-50.0[facility] Cleveland-FairhillComment on above:Performed By: #### [id number] #### [facility] [address] [place] [address]MMI (RBC) [Entitic mass]27.5 vpXyrquo72.0-34.0[facility] Cleveland-FairhillComment on above:Performed By: #### [id number] #### [facility] [address] [place] [address]FAXN (RBC) [Mass/Vol]33.3 g/cZJxonkv55.4-36.0[facility] Cleveland-FairhillComment on above:Performed By: #### [id number] #### [facility] [address] [place] [address]MEE (RBC) [Entitic vol]82.8 hPGkqdak43.0-100.0[facility] Cleveland-FairhillComment on above:Performed By: #### [id number] #### [facility] [address] [place] [address]Lpzg Absolute0.9 E9/LNormal0.2-1.0[facility] Comment on above:Performed By: #### [id number] #### [facility] [address] [place] [address]Qixktklod/100 WBC (Bld)14.4 %High4.0-14.0[facility] Cleveland-FairhillComment on above:Performed By: #### [id number] #### [facility] [address] [place], [place] [address]Grwsla Absolute3.1 E9/LNormal2.0-7.5FMercy Health St. Anne Hospital Comment on above:Performed By: #### [id number] #### [facility] [address] [place], [place] [address]Etdeyq Auto52.0 %Wpisoj92.0-75.0[facility] Comment on above:Performed By: #### [id number] #### [facility] [address] [place], [place] [address]Xvnyqbna018.0 E9/OKdyyfw082.0-500.0[facility] Comment on above:Performed By: #### [id number] #### [facility] [address] [place], [place] [address]Uxvdtrvt mean volume (Bld) [Entitic vol]9.0 fLNormal6.4-10.8 [facility] Cleveland-FairhillComment on above:Performed By: #### [id number] #### [facility] [address] [place], [place] [address]WSG3.7 E12/LNormal4.3-5.9[facility] Cleveland-FairhillComment on above:Performed By: #### [id number] #### [facility] [address] [place] [address]NOY8.0 E9/LNormal4.0-11.0[facility] Cleveland-FairhillComment on above:Performed By: #### [id number] #### [facility] [address] [place], [place] [address]HGCWRYQZNMnxagic By: SYSTEM SYSTEM on 21-29-7729Wgluf gap [Moles/Vol]12 mmol/LNormal6 - 16 mEq/LRemisol ChemCalcium [Mass/Vol]8.0 mg/dLLow 8.9 - 11.1 mg/dLRemisol ChemChloride [Moles/Vol]106 mmol/VPwyxdi195 - 111 mmol/L Remisol ChemCO2 [Moles/Vol]25 mmol/YSzjked19 - 31 mmol/LRemisol ChemCreatinine [Mass/Vol]1.3 mg/dLNormal0.5 - 1.3 mg/dLRemisol ChemGFR/1.73 sq M.predicted MDRD (S/P/Bld) [Vol rate/Area]59 mL/min/1.73 y9Lckyyz>=59mL/min/1.73 k9Fasvsqq Chem Glucose [Mass/Vol]86 mg/gNRvomdm33 - 199 mg/dLRemisol ChemPotassium [Moles/Vol] 4.2 mmol/LNormal3.5 - 5.3 mmol/LRemisol ChemSodium [Moles/Vol]139 mmol/LNormal 135 - 145 mmol/LRemisol ChemUrea nitrogen [Mass/Vol]29 mg/dLHigh5 - 21 mg/dL Remisol ChemUrea nitrogen/Creatinine [Mass ratio]22 mg/zgAqkz67 - 20Remisol Chem HEMATOLOGYOrdered By: SYSTEM SYSTEM on 30-37-2636Wzlqosfxh/100 WBC (Bld)0.6 % Normal0.0 - 2.0 %Remisol HemeBasophils/Leukocytes Auto (Bld) [Pure # fraction] 0.0 E9/LNormal0.0 - 0.2 E9/LRemisol HemeEosinophils (Bld) [#/Vol]0.2 E9/LNormal 0.0 - 0.5 E9/LRemisol HemeEosinophils/100 WBC (Bld)4.0 %Normal0.0 - 8.0 %Remisol HemeErythrocyte distribution width (RBC) [Ratio]14.4 %High10.9 - 14.2 %Remisol HemeHematocrit (Bld) [Volume fraction]38.6 %Aulbty12.7 - 49.0 %Remisol Heme Hemoglobin (Bld) [Mass/Vol]12.8 g/dLLow13.5 - 17.5 gm/dLRemisol HemeLymphocytes (Bld) [#/Vol]1.7 E9/LNormal1.0 - 4.0 E9/LRemisol HemeLymphocytes/100 WBC (Bld) 29.0 %Bkfmbv21.0 - 50.0 %Remisol HemeMCH (RBC) [Entitic mass]27.5 fqAryeod76.0 - 34.0 pgRemisol HemeMCHC (RBC) [Mass/Vol]33.3 g/uVJbkaoe83.4 - 36.0 gm/dLRemisol HemeMCV (RBC) [Entitic vol]82.8 sGCmzxla42.0 - 100.0 fLRemisol HemeMonocytes (Bld) [#/Vol]0.9 E9/LNormal0.2 - 1.0 E9/LRemisol HemeMonocytes/100 WBC (Bld)14.4 %High4.0 - 14.0 %Remisol HemeNeutrophils (Bld) [#/Vol]3.1 E9/LNormal2.0 - 7.5 E9/LRemisol HemeNeutrophils/100 WBC (Bld)52.0 %Hnxrqu09.0 - 75.0 %Remisol Heme Platelet mean volume (Bld) [Entitic vol]9.0 fLNormal6.4 - 10.8 fLRemisol Heme Platelets (Bld) [#/Vol]202.0 E9/ASpmaoh392.0 - 500.0 E9/LRemisol HemeRBC (Bld) [#/Vol]4.7 E12/LNormal4.3 - 5.9 E12/LRemisol HemeWBC corrected for nucl RBC Auto (Bld) [#/Vol]6.0 E9/LNormal4.0 - 11.0 E9/LRemisol HemeeGFRon 55-48-3347rALI70 mL/min/1.73 h3Oyeyje>=59Alleghany Healther [facility] Baltimore Medical CenterComment on above:Performed By: #### [id number] ####[facility] [address] [place], [place] [address]vs 49-87-295792Gsbqhzypx echo result from 09/01/2024: NEETU Reveles MA Please let him know ECHO is good, things are unchanged/stable. Follow-up as scheduled or sooner if needed. Thanks! Patient informed. He has follow up with Harriet on 10/01/2024.[facility] HospitalCA ECHO DOPPLER COMPLETEon 33-33-1111[address] [address] Cardiology Report Signed Patient: YOLI ANTUNEZ MR#: [id number] : 1955 Acct:[id number] Age/Sex: 69 / M ADM Date: 09/01/24 Loc: CARD Attending Dr: YANDEL SHEN APRN Ordering Physician: YANDEL SHEN APRN Date of Service: 09/01/24 Procedure(s): CA echo doppler complete Accession Number(s): [id number] cc: RADHA BURRIS ; YANDEL SHEN APRN Patient Name: YOIL ANTUNEZ MR#: [id number] : 1955 Exam Date: 09/01/2024 Ordering Doctor: [...] content not included)...TBHRadiology, Radiologist, - 09/02/2024 [place] [address] Cardiology Report Signed Patient: YOLI ANTUNEZ MR#: [id number] : 1955 Acct:[id number] Age/Sex: 69 / M ADM Date: 09/01/24 Loc: CARD Attending Dr: YANDEL SHEN APRN Ordering Physician: YANDEL SHEN APRN Date of Service: 09/01/24 Procedure(s): CA echo doppler complete Accession Number(s): [id number] cc: RADHA BURRIS ; YANDEL SHEN APRN Patient Name: YOLI ANTUNEZ MR#: [id number] : 1955 Exam Date: 09/01/2024 Ordering Doctor: [...] Signed By: 09/02/24 145 DD/ 145 TD/TT: Ground Support Equipment Assembler: [facility] HealthcareRadiology Study observation (narrative)[facility]SmithvilleCA ECHO DOPPLER COMPLETEOrdered By: Radiologist Radiology on 16-92-3773[facility] Work Phone: ct Maxillofacial region WO and W contrast Candace 19-21-1538AYEIO OF EXAM: CT SINUS WO IV CONTRAST [...] signed in approved by the interpreting radiologist. [facility] HealthcareRadiology Study observation (narrative)[facility] Maxillofacial region WO and W contrast IVOrdered By: Shamika Hung on 88-19-7988[facility] Work Phone: CT SINUS WOon 45-07-2313TO SINUS WOTITLE OF EXAM: CT SINUS WO [...] AvailableComment on above:Order Comment: DENTAL INFECTION ITPon 63-17-9426E[place] [address] Cardiac Rehab Report Signed Patient: YOLI ANTUNEZ MR#: [id number] : 1955 Acct:[id number] Age/Sex: 69 / M ADM Date: 06/26/24 Loc: CR Attending Dr: YANDEL SHEN APRN Ordering Physician: YANDEL SHEN APRN Date of Service: 08/03/24 Procedure(s): ITP Accession Number(s): [id number] cc: [facility] Test Date: 2024-08-03 Pat Name: YOLI ANTUNEZ Department: Room: - Gender: Male Non Destructive Testing Specialist: : 1955 Requested By: Yandel Shen Order Number: [id number] Reading MD: Adrian Russell Interpretive Statements Session Date: 08/03/2024 Patient stopping cardiac rehabilitation on his own. He is encouraged to re-enroll. Electronically Signed On 08-12-2024 10:34:15 EDT by Adrian Russell Dictated By: Adrian Russell D.O. Signed By: 08/12/24 1034 08/12/24 1034 DD/ 1216 TD/TT: Ground Support Equipment Assembler:TBHRadiology, Radiologist, - 08/12/2024 [place] [address] Cardiac Rehab Report Signed Patient: YOLI ANTUNEZ MR#: [id number] : 1955 Acct:[id number] Age/Sex: 69 / M ADM Date: 06/26/24 Loc: CR Attending Dr: YANDEL SHEN APRN Ordering Physician: YANDEL SHEN APRN Date of Service: 08/03/24 Procedure(s): ITP Accession Number(s): [id number] cc: [facility] Test Date: 2024-08-03 Pat Name: YOLI ANTUNEZ Department: Room: - Gender: Male Non Destructive Testing Specialist: : 1955 Requested By: Yandel Shen Order Number: [id number] Reading MD: Adrian Russell Interpretive Statements Session Date: 08/03/2024 Patient stopping cardiac rehabilitation on his own. He is encouraged to re-enroll. Electronically Signed On 08-12-2024 10:34:15 EDT by Adrian Russell Dictated By: Adrian Russell D.O. Signed By: 08/12/24 1034 08/12/24 1034 DD/ 1216 TD/TT: Ground Support Equipment Assembler: DEVIN RubinITPOrdered By: Radiologist Radiology on 99-25-6795LAWC [employer] Work Phone: MAGNESIUMon 99-46-0913Oyaacuvje [Mass/Vol]2.3 mg/dL Normal1.5-2.5Quest DiagnosticsComment on above:Order Comment: COLLECTION KIT GIVEN TO PATIENT. PATIENT ADVISED TO RETURN. URINE VOLUME: NOTVPerformed By: #### 92776, 03001, 622, 89915 #### [facility] [address], [address] [place] [address] Adult Basic Studies Teacher: Janes SIERRA, INTACT WITHOUT CALCIUMon 08-04-2024 PARATHYROID HORMONE, INTACT9 pg/bJCjw33-86Nubvn DiagnosticsComment on above: Result Comment: Interpretive Guide Intact PTH Calcium ------- Normal Parathyroid Normal Normal Hypoparathyroidism Low or Low Normal Low Hyperparathyroidism Primary Normal or High High Secondary High Normal or Low Tertiary High High Non-Parathyroid Hypercalcemia Low or Low Normal HighPerformed By: #### 44845, 82701, 622, 65710 #### [facility] [place] [address] Adult Basic Studies Teacher: Janes Vasquez MDRENAL FUNCTION PANELon 66-02-8827Spzzdix [Mass/Vol]4.5 g/dLNormal3.6-5.1Quest DiagnosticsComment on above:Performed By: #### 14016, 26547, 622, 99999 #### [facility] of [place] [address] Adult Basic Studies Teacher: Janes Vasquez MDCalcium [Mass/Vol]7.9 mg/dLLow8.6-10.3Quest DiagnosticsComment on above:Performed By: #### 02101, 78367, 622, 71745 #### [facility] of [place] [address] Adult Basic Studies Teacher: Janes Vasquez MDChloride [Moles/Vol]107 mmol/WGksret87-972 Quest DiagnosticsComment on above:Performed By: #### 22077, 26569, 622, 51169 #### [facility] of [place] [address] Adult Basic Studies Teacher: Janes Vasquez MDCO2 [Moles/Vol]24 mmol/NIvbsbd00-83Umvsq DiagnosticsComment on above:Performed By: #### 34443, 66208, 622, 79669 #### [facility] of [place] [address] Adult Basic Studies Teacher: Janes Vasquez MDCreatinine [Mass/Vol]1.53 mg/dLHigh0.70-1.28 Quest DiagnosticsComment on above:Performed By: #### 84233, 93039, 622, 82955 #### [facility] of [place] [address] Adult Basic Studies Teacher: Janes Vaqsuez MDGFR/1.73 sq M.predicted among non-blacks MDRD (S/P/Bld) [Vol rate/Area]48 mL/min/{1.73_m2}Low> OR = 60Quest DiagnosticsComment on above:Performed By: #### 31045, 69891, 622, 64785 #### [facility] [place] [address] Adult Basic Studies Teacher: Janes Vasquez MDGlucose [Mass/Vol]142 mg/yUZlqf59-23Podqw DiagnosticsComment on above:Result Comment: Fasting reference interval For someone without known diabetes, a glucose value >125 mg/dL indicates that they may have diabetes and this should be confirmed with a follow-up test.Performed By: #### 82628, 57245, 622, 95274 #### [facility] [place] [address] Adult Basic Studies Teacher: Janes Vasquez MDPhosphate [Mass/Vol]4.3 mg/dLNormal2.1-4.3 Quest DiagnosticsComment on above:Performed By: #### 73768, 02826, 622, 31884 #### [facility] [place] [address] Adult Basic Studies Teacher: Janes Vasquez MDPotassium [Moles/Vol]4.0 mmol/LNormal3.5-5.3 Quest DiagnosticsComment on above:Performed By: #### 60997, 59854, 622, 91205 #### [facility] [place] [address] Adult Basic Studies Teacher: Janes Vasquez MDSodium [Moles/Vol]141 mmol/YRbpkvz033-599Ypona DiagnosticsComment on above:Performed By: #### 04115, 30615, 622, 98683 #### [facility] [place] [address] Adult Basic Studies Teacher: Janes Vasquez MDUrea nitrogen [Mass/Vol]32 mg/dLHigh7-25Quest DiagnosticsComment on above:Performed By: #### 25617, 15238, 622, 64812 #### [facility] [address], [address] [place] [address] Adult Basic Studies Teacher: Janes Vasquez MDUrea nitrogen/Creatinine [Mass ratio]21 mg/mg Normal6-22Quest DiagnosticsComment on above:Performed By: #### 46762, 43929, 622, 41880 #### [facility] [address], [address] [place] [address] Adult Basic Studies Teacher: Janes Vasquez MDVITAMIN D,25-OH,TOTAL,IAon 11-30-6170XRLRBBH D,25-OH,TOTAL,IA48 ng/rNSrtxze69-634Alqid DiagnosticsComment on above:Result Comment: Vitamin D Status 25-OH Vitamin D: Deficiency: <20 ng/mL Insufficiency: 20 - 29 ng/mL Optimal: > or = 30 ng/mL For 25-OH Vitamin D testing on patients on D2-supplementation and patients for whom quantitation of D2 and D3 fractions is required, the QuestAssureD(TM) 25-OH VIT D, (D2,D3), LC/MS/MS is recommended: order code 24101 (patients >2yrs). See Note 1 Note 1 For additional information, please refer to http://education.[employer]/faq/RCS138 (This link is being provided for informational/ educational purposes only.)Performed By: #### 66177, 39856, 622, 85612 #### [facility] [address], [address] [place] [address] Adult Basic Studies Teacher: Janes Vasquez MDITPon 28-52-1059Dbhexrvpt Study observation (narrative)[facility]SmithvilleMR BRAIN W AND WO CONTRASTon 36-38-8816FJ BRAIN W AND WO CONTRASTMR BRAIN W [...] may be warranted. Electronically signed: Osmel Quinn MD.[facility] Comment on above:Order Comment: ORDER IN EPICITPon 50-56-3160[place]whArg[place], [place] [address] Cardiac Rehab Report Signed Patient: YOLI ANTUNEZ MR#: [id number] : 1955 Acct:[id number] Age/Sex: 69 / M ADM Date: 06/26/24 Loc: CR Attending Dr: YANDEL SHEN APRN Ordering Physician: YANDEL SHEN APRN Date of Service: 07/02/24 Procedure(s): ITP Accession Number(s): [id number] cc: [facility] Test Date: 2024-07-02 Pat Name: YOLI ANTUNEZ Department: Room: - Gender: Male Non Destructive Testing Specialist: : 1955 Requested By: Yandel Shen Order Number: [id number] Reading MD: LARA OJEDA Interpretive Statements Session Date: Electronically Signed On 07-02-2024 22:37:32 EDT by LARA OJEDA Dictated By: Lara Ojeda D.O. Signed By: 07/02/24223607/02/242236 DD/ 1138 TD/TT: Ground Support Equipment Assembler:TBHRadiology, Radiologist, - 07/02/2024 [place] [address] Cardiac Rehab Report Signed Patient: YOLI ANTUNEZ MR#: [id number] : 1955 Acct:[id number] Age/Sex: 69 / M ADM Date: 06/26/24 Loc: CR Attending Dr: YANDEL SHEN APRN Ordering Physician: YANDEL SHEN APRN Date of Service: 07/02/24 Procedure(s): ITP Accession Number(s): [id number] cc: [facility] Test Date: 2024-07-02 Pat Name: YOLI ANTUNEZ Department: Room: - Gender: Male Non Destructive Testing Specialist: : 1955 Requested By: Yandel Shen Order Number: [id number] Josy MD: LARA OJEDA Interpretive Statements Session Date: Electronically Signed On 07-02-2024 22:37:32 EDT by LARA OJEDA Dictated By: Lara Ojeda D.O. Signed By: 07/02/24223607/02/242236 DD/ 37 TD/TT: Ground Support Equipment Assembler: DEVIN HealthcareRadiology Study observation (narrative)[facility]–SmithvilleITPOrdered By: Radiologist Radiology on 54-66-2234ONVTSaint Luke's [facility] Hospital–Smithville Work Phone: PTH, INTACT (ICMA) AND IONIZED CALCIUMon 06-17-2024 Calcium [Mass/Vol]8.2 mg/dLLow8.6-10.3Quest DiagnosticsComment on above: Performed By: #### 31743 #### [facility] [address] Adult Basic Studies Teacher: Janes Vasquez MDCALCIUM, IONIZED4.5 mg/dLLow4.7-5.5Quest DiagnosticsComment on above:Performed By: #### 33477 #### [facility] [place] [address] Adult Basic Studies Teacher: Janes Vasquez MDPARATHYROID HORMONE, BEOMPM26 pg/qJTpj47-01 Quest DiagnosticsComment on above:Result Comment: Interpretive Guide Intact PTH Calcium ------- Normal Parathyroid Normal Normal Hypoparathyroidism Low or Low Normal Low Hyperparathyroidism Primary Normal or High High Secondary High Normal or Low Tertiary High High Non-Parathyroid Hypercalcemia Low or Low Normal HighPerformed By: #### 48101 #### [facility] [address], [address] [place] [address] Adult Basic Studies Teacher: Janes Rand 81-00-4077[place] [address] Cardiac Rehab Report Signed Patient: YOLI ANTUNEZ MR#: [id number] : 1955 Acct:[id number] Age/Sex: 69 / M ADM Date: 06/01/24 Loc: CR Attending Dr: YANDEL SHEN APRN Ordering Physician: YANDEL SHEN APRN Date of Service: 06/04/24 Procedure(s): [facility] Accession Number(s): [id number] cc: [facility] Test Date: 2024-06-04 Pat Name: YOLI ANTUNEZ Department: Room: - Gender: Male Non Destructive Testing Specialist: : 1955 Requested By: Yandel Shen Order Number: [id number] Josy MD: LARA OJEDA Interpretive Statements Session Date: Electronically Signed On 06-04-2024 16:55:23 EST by LARA OJEDA Dictated By: Lara OjedaOAmarjit Signed By: 06/04/24165406/04/241654 DD/ 0734 TD/TT: Ground Support Equipment Assembler:TBHRadiology, Radiologist, - 06/04/2024 [address] [place] [id number] Cardiac Rehab Report Signed Patient: YOLI ANTUNEZ MR#: [id number] : 1955 Acct:[id number] Age/Sex: 69 / M ADM Date: 06/01/24 Loc: CR Attending Dr: YANDEL SHEN APRN Ordering Physician: YANDEL SHEN APRN Date of Service: 06/04/24 Procedure(s): ITP Accession Number(s): [id number] cc: [facility] Test Date: 2024-06-04 Pat Name: YOLI ANTUNEZ Department: Room: - Gender: Male Non Destructive Testing Specialist: : 1955 Requested By: Yandel Shen Order Number: [id number] Reading MD: LARA OJEDA Interpretive Statements Session Date: Electronically Signed On 06-04-2024 16:55:23 EST by LARA OJEDA Dictated By: Lara Ojeda D.O. Signed By: 06/04/24165406/04/241654 DD/ 3 TD/TT: Ground Support Equipment Assembler: DEVIN HealthcareRadiology Study observation (narrative)[facility] HealthcareITPOrdered By: Radiologist Radiology on 26-95-0392[facility] Work Phone: [phone] 62-90-682942Pbt in cardiac rehab made aware. He will address this tomorrow when patient sees them and he'll let me know.[facility]36on 59-08-418778O offered Ranexa, he was not interested as he tried it in the past and it did not work. We can offer it again.[facility]36Dan in rehab made aware. He wasn't able to tolerate Imdur, but would he benefit from Ranexa?[facility]36on 48-92-417731Wyj, unfortunately not much further we can do. He's in rehab so that we can try to help improve his symptoms.[facility]36Dan from [facility] Cardiac Rehab wanted you make you aware that patient is c/o daily chest pain and taking nitroglycerin daily. Stiven said patient doesn't seem concerned about this but he wanted to make us aware. I informed Stiven that unfortunately this is kind of Mr. Antunez's baseline. Any suggestions?[facility] HospitalTelephoneon [id number] Yoli Antunez Jr. 1955 M Date Provider Department Center 05/25/2024 SHIVANI HAWKINS [facility] Family History Problem Relation Age of Onset Hypertension Mother Cancer Mother Stroke Mother Hypertension Father Aortic aneurysm Father Cancer Father Aortic aneurysm Paternal Grandfather Sudden Neg Hx Family Status - Relation Status Age at Mother Father Paternal Grandfather Neg HxNormalUniversOur Lady of Mercy HospitalITPon 55-03-2934[place] [address] Cardiac Rehab Report Signed Patient: YOLI ANTUNEZ MR#: [id number] : 1955 Acct:[id number] Age/Sex: 68 / M ADM Date: 05/12/24 Loc: CR Attending Dr: YANDEL SHEN APRN Ordering Physician: Lara Ojeda D.O. Date of Service: 05/12/24 Procedure(s): ITP Accession Number(s): [id number] cc: [facility] Test Date: 2024-05-12 Pat Name: YOLI ANTUNEZ Department: Room: - Gender: Male Non Destructive Testing Specialist: : 1955 Requested By: LARA OJEDA Order Number: [id number] Josy MD: LARA OJEDA Interpretive Statements Session Date: Electronically Signed On 05-12-2024 21:01:24 EST by LARA OJEDA Dictated By: Lara Ojeda D.O. Signed By: 05/12/24210005/12/242100 DD/ 4 TD/TT: Ground Support Equipment Assembler:TBHRadiology, Radiologist, - 05/12/2024 [place] [address] Cardiac Rehab Report Signed Patient: YOLI ANTUNEZ MR#: [id number] : 1955 Acct:[id number] Age/Sex: 68 / M ADM Date: 05/12/24 Loc: CR Attending Dr: YANDEL SHEN APRN Ordering Physician: Lara Ojeda D.O. Date of Service: 05/12/24 Procedure(s): ITP Accession Number(s): [id number] cc: [facility] Test Date: 2024-05-12 Pat Name: YOLI ANTUNEZ Department: Room: - Gender: Male Non Destructive Testing Specialist: : 1955 Requested By: LARA OJEDA Order Number: [id number] Reading MD: LARA OJEDA Interpretive Statements Session Date: Electronically Signed On 05-12-2024 21:01:24 EST by LARA OJEDA Dictated By: Lara Ojeda D.O. Signed By: 05/12/24210005/12/242100 DD/ 4 TD/TT: Ground Support Equipment Assembler: DEVIN HealthcareRadiology Study observation (narrative)DEVIN HealthcareITPOrdered By: Radiologist Radiology on 18-43-5849QNCJ Healthcare Work Phone: ITPon 29-52-2265[place]fhArg[place], [place] [address] Cardiac Rehab Report Signed Patient: YOLI ANTUNEZ MR#: [id number] : 1955 Acct:[id number] Age/Sex: 68 / M ADM Date: 05/07/24 Loc: CR Attending Dr: YANDEL SHEN APRN Ordering Physician: YANDEL SHEN APRN Date of Service: 05/07/24 Procedure(s): ITP Accession Number(s): [id number] cc: [facility] Test Date: 2024-05-07 Pat Name: YOLI ANTUNEZ Department: Room: - Gender: Male Non Destructive Testing Specialist: : 1955 Requested By: Yandel Shen Order Number: [id number] Reading MD: LARA OJEDA Interpretive Statements Session Date: Electronically Signed On 05-07-2024 21:32:58 EST by LARA OJEDA Dictated By: Lara Ojeda D.O. Signed By: 05/07/24213205/07/242132 DD/ 24 TD/TT: Ground Support Equipment Assembler:BARRETTadiolCain dean MD - 05/07/2024 [place] [address] Cardiac Rehab Report Signed Patient: YOLI ANTUNEZ MR#: [id number] : 1955 Acct:[id number] Age/Sex: 68 / M ADM Date: 05/07/24 Loc: CR Attending Dr: YANDEL SHEN APRN Ordering Physician: YANDEL SHEN APRN Date of Service: 05/07/24 Procedure(s): ITP Accession Number(s): [id number] cc: [facility] Test Date: 2024-05-07 Pat Name: YOLI ANTUNEZ Department: Room: - Gender: Male Non Destructive Testing Specialist: : 1955 Requested By: Yandel Shen Order Number: [id number] Reading MD: LARA OJEDA Interpretive Statements Session Date: Electronically Signed On 05-07-2024 21:32:58 EST by LARA OJEDA Dictated By: Lara Ojeda D.O. Signed By: 05/07/24213205/07/242132 DD/ 142 TD/TT: Ground Support Equipment Assembler: DEVIN HealthcareRadiology Study observation (narrative)[facility] HealthcareITPOrdered By: Radiologist Radiology on 08-71-2257THAN Healthcare Work Phone: Office Visiton [phone]-up [id number] Yoli Antunez 1955 M Date Provider Department Center 04/28/2024 [facility] Family History Problem Relation Age of Onset Hypertension Mother Cancer Mother Stroke Mother Hypertension Father Aortic aneurysm Father Cancer Father Aortic aneurysm Paternal Grandfather Sudden Neg Hx Family Status - Relation Status Age at Mother Father Paternal Grandfather Neg Hx Level of Service:89363 CO OFFICE/OUTPATIENT ESTABLISHED MOD MDM 30 MIN Reason for Visit and Comments: Coronary Artery Disease [187] Atrial Fibrillation [80] Chest Pain [905885]NormalUnSycamore Medical Center36on Post Discharge Call Good afternoon, I am Ruben Lopez RN a lead nurse from [facility]. I am calling you to follow up [...] No Patient Name [facility]oli Antunez Jr. [facility]24 [id number] Yoli Antunez Jr. 1955 M Date Provider Department [place] 04/11/2024 CarolinaRUBEN MATHEW [facility] Family History Problem Relation Age of Onset Hypertension Mother Cancer Mother Stroke Mother Hypertension Father Aortic aneurysm Father Cancer Father Aortic aneurysm Paternal Grandfather Sudden Neg Hx Family Status - Relation Status Age at Mother Father Paternal Grandfather Neg HxNormalUniTracy Ville [phone] patient is Moderately Stable - Low risk [...] are monitored and maintained or improved Outcome: ProgressingNormalUniversOur Lady of Mercy HospitalBASIC METABOLIC PANELon 00-51-0963Rcsxb gap [Moles/Vol]12 mmol/LNormal7-20UnSycamore Medical CenterComment on above:Performed By: #### LAB15 #### [facility] ([facility]) [address] [place] [address]Rhthzip [Mass/Vol]7.7 mg/dLLow8.6-10.3UnSycamore Medical CenterComment on above:Performed By: #### LAB15 #### [facility] ([facility]) [address] [place], [place] [address]Txqooisv [Moles/Vol]106 mmol/MDcqyxy78-026NyedhwhfixSycamore Medical CenterComment on above:Performed By: #### LAB15 #### [facility] ([facility]) [address] [place], [place] [address]ZB5 [Moles/Vol]26 mmol/ZAdefmr71-47TroogqpjqkSycamore Medical CenterComment on above:Performed By: #### LAB15 #### [facility] ([facility]) [address] [place], [place] [address]Cokbpqxsco [Mass/Vol]1.41 mg/dLHigh0.70-1.30UnSycamore Medical CenterComment on above:Performed By: #### LAB15 #### [facility] ([facility]) [address] [place], [place] [address]AFTVLCRJJI FILTRATION RATE ML/MIN/1.73 SQ M.JPIHHWKLC24.6 mL/min/1.73m*2Low>60.0UnSycamore Medical CenterComment on above:Result Comment: [facility]???s estimated glomerular filtration rate (eGFR) [...] group of individuals.Performed By: #### LAB15 #### [facility] ([facility]) [address] [place] [place], [place] [address]Dxgdzks [Mass/Vol]85 mg/lKYwwnfx93-855UexkfkmohkSycamore Medical CenterComment on above:Performed By: #### LAB15 #### [facility] ([facility]) [address] [facility] [place], [place] [address]Ihgscvcaw [Moles/Vol]4.2 mmol/LNormal3.5-5.1UnSycamore Medical CenterComment on above:Performed By: #### LAB15 #### [facility] ([facility]) [address] [facility] [place], [place] [address]Uatkun [Moles/Vol]140 mmol/NAnhdqm240-413FcjwbvfluaSycamore Medical CenterComment on above:Performed By: #### LAB15 #### [facility] ([facility]) [address] [place], [place] [address]Lakt nitrogen [Mass/Vol]25 mg/dLNormal7-25UnSycamore Medical CenterComment on above:Performed By: #### LAB15 #### [facility] ([facility]) [address] [place], [place] [address]QWJV NITROGEN/CREATININE (MASS RATIO) IN SER/PLAS17.7Normal [facility] HospitalComment on above:Performed By: #### LAB15 #### [facility] ([facility]) [address] [place], [place] [address]he 84-15-984548Cbyqy Case Management Update Multidisciplinary rounds have been [...] Level of Consultation Consultation and Management 04/09/24 0918NormalUniversOur Lady of Mercy Hospital30The patient is Moderately Stable - Low [...] and maintained or improved Outcome: ProgressingNormalUniversity of Baylor Scott & White Medical Center – IrvingAbstracton [id number] Yoli Antunez Jr. 1955 M Date Provider Department Center 04/09/2024 3244-MARION MOSHER [facility] Family History Problem Relation Age of Onset Hypertension Mother Cancer Mother Stroke Mother Hypertension Father Aortic aneurysm Father Cancer Father Aortic aneurysm Paternal Grandfather Sudden Neg Hx Family Status - Relation Status Age at Mother Father Paternal Grandfather Neg HxNormalUniversOur Lady of Mercy HospitalBASIC METABOLIC PANELon 19-21-5857Apgzr gap [Moles/Vol]12 mmol/LNormal7-20UnSycamore Medical CenterComment on above:Performed By: #### [id number] #### [facility] ([facility]ER) [address] [place], [place] [address]Fphinnt [Mass/Vol]7.6 mg/dLLow8.6-10.3UnSycamore Medical CenterComment on above:Performed By: #### [id number] #### [facility] ([facility]) [address] [place] [address]Asficqqr [Moles/Vol]108 mmol/GXbvw25-084HdpnmlgxcjSycamore Medical CenterComment on above:Performed By: #### [id number] #### [facility] ([facility]) [address] [place] [address]JY1 [Moles/Vol]25 mmol/GCrbwoc40-14IjqkuimxklSycamore Medical CenterComment on above:Performed By: #### [id number] #### [facility] ([facility]) [address] [place] [address]Yibaaosewg [Mass/Vol]1.34 mg/dLHigh0.70-1.30UnSycamore Medical CenterComment on above:Performed By: #### [id number] #### [facility] ([facility]) [address] [place] [place] [address]MWZRAJRCHR FILTRATION RATE ML/MIN/1.73 SQ M.GIXVYNDHZ30.0 mL/min/1.73m*2Low>60.0UnSycamore Medical CenterComment on above:Result Comment: [facility]???s estimated glomerular filtration rate (eGFR) [...] group of individuals.Performed By: #### [id number] #### [facility] ([facility]) [address] [place] [address]Pcalkmp [Mass/Vol]86 mg/lPCsynmp64-281TxyhxkqnoySycamore Medical CenterComment on above:Performed By: #### [id number] #### [facility] ([facility]) [address] [place] [place] [address]Zkotimpre [Moles/Vol]4.1 mmol/LNormal3.5-5.1UnSycamore Medical CenterComment on above:Performed By: #### [id number] #### [facility] ([facility]) [address] [place] [address]Pzjeyy [Moles/Vol]141 mmol/LTpifcg376-951SmqxpmskoiSycamore Medical CenterComment on above:Performed By: #### [id number] #### [facility] ([facility]) [address] [place] [address]Xlqg nitrogen [Mass/Vol]27 mg/dLHigh7-25UnSycamore Medical CenterComment on above:Performed By: #### [id number] #### [facility] ([facility]) [address] [place] [address]WFTS NITROGEN/CREATININE (MASS RATIO) IN SER/PLAS20.1Normal [facility] HospitalComment on above:Performed By: #### [id number] #### [facility] ([facility]) [address] [place] [place] [address]QYSJOOSdt 45-81-8051OHSGCWH Attestation signed by Erika Mesa MD at [...] Teaching Physician's Revisions: none Erika Mesa MD [facility] Cardiology Consult Note Reason for Consult: chest pain HPI: Yoli Antunez Jr. is a 68 y.o. male for primary hypertension, atrial fibrillation on sotalol status post watchman not on anticoagulation, sinus node dysfunction status post dual-chamber permanent pacemaker, coronary artery disease status post cardiac catheterization 08/2023, POTS who presented to [facility] ED with ongoing chest pain that has [...] 04/09/24 0409 -- - (more content not included)...NormalUnSycamore Medical CenterTROPONIN Ion 70-44-4121Wwucqakr I.cardiac [Mass/Vol]0.00 ng/mL Normal0.00-0.04UnSycamore Medical CenterComment on above:Performed By: #### [id number] #### [facility] ([facility]) [address] [place], [place] [address]Sdmrkyhg I.cardiac [Mass/Vol]0.00 ng/mLNormal0.00-0.04UnSycamore Medical CenterComment on above:Performed By: #### [id number] #### [facility] ([facility]) [address] [place], [place] [address]au 33-54-676824Gio patient is Moderately Stable - Low risk of patient condition declining or worsening The patient's goals for the shift include COMFORT The clinical goals for the shift include VSSNormalUniversity of Baylor Scott & White Medical Center – Irving30The patient is Moderately Stable - Low risk of patient condition declining or worsening The patient's goals for the shift include COMFORT The clinical goals for the shift include VSSNormalUniversity of Baylor Scott & White Medical Center – IrvingAPTTon 39-81-6442CXBXPCFMK PARTIAL THROMBOPLASTIN TIME IN PPP BY COAGULATION ASSAY31.1 VgxvuerIalgyb69.0-35.0UnSycamore Medical Center Comment on above:Result Comment: Clinical significance of the APTT is questionable in the presence of heparin.Performed By: #### [id number] #### [facility] ([facility]) [address] [place], [place] [address]C-PLQI NATRIURETIC PEPTIDEon 95-12-2435Qgbwozsylbw peptide B (Bld) [Mass/Vol]66 pg/mLNormal0-100UnSycamore Medical CenterComment on above:Performed By: #### [id number] #### [facility] ([facility]) [address] [place], [place] [address]RQRUR METABOLIC PANELon 31-36-9475Donuu gap [Moles/Vol]13 mmol/L Normal7-20UnSycamore Medical CenterComment on above:Performed By: #### [id number] #### [facility] ([facility]) [address] [address]Ayuiqry [Mass/Vol]8.3 mg/dLLow8.6-10.3UnSycamore Medical CenterComment on above:Performed By: #### [id number] #### [facility] ([facility]) [address] [place] [place] [address]Zxvqzlea [Moles/Vol]107 mmol/TXuypqk28-692WpvngwwwhaSycamore Medical CenterComment on above:Performed By: #### [id number] #### [facility] ([facility]) [address] [place] [place] [address]TD4 [Moles/Vol]24 mmol/JQnfhlt00-18WqlmtrhjrsSycamore Medical CenterComment on above:Performed By: #### [id number] #### [facility] ([facility]) [address] [place] [address]Aoaeltrylh [Mass/Vol]1.60 mg/dLHigh0.70-1.30UnSycamore Medical CenterComment on above:Performed By: #### [id number] #### [facility] ([facility]) [address] [place] [place] [address]IJJCTZYNOE FILTRATION RATE ML/MIN/1.73 SQ M.SNMSCZWTP64.1 mL/min/1.73m*2Low>60.0UnSycamore Medical CenterComment on above:Result Comment: [facility]???s estimated glomerular filtration rate (eGFR) [...] affect anyone group of individuals.Performed By: #### [id number] #### [facility] ([facility]) [address] [place] [place] [address]Gbgvqre [Mass/Vol]85 mg/qLXoebac62-337PfupqavfpuSycamore Medical CenterComment on above:Performed By: #### [id number] #### [facility] ([facility]) [address] [place] [place] [address]Wstewqfvq [Moles/Vol]4.0 mmol/LNormal3.5-5.1UnSycamore Medical CenterComment on above:Performed By: #### [id number] #### [facility] ([facility]) [address] [place] [address]Kqjnkw [Moles/Vol]140 mmol/KObwrdy747-841FjoeobtbpaSycamore Medical CenterComment on above:Performed By: #### [id number] #### [facility] ([facility]) [address] [place] [place], [place] [address]Hqpv nitrogen [Mass/Vol]29 mg/dLHigh7-25UnSycamore Medical CenterComment on above:Performed By: #### [id number] #### [facility] ([facility]) [address] [place], [place] [address]NDPF NITROGEN/CREATININE (MASS RATIO) IN SER/PLAS18.1Normal [facility] HospitalComment on above:Performed By: #### [id number] #### [facility] ([facility]) [address] [place], [place] [address]PSC WITH AUTO DIFFERENTIALon 53-01-2489Budewpnzv (Bld) [#/Vol] 0.05 10*3/uLNormal0.00-0.20UnSycamore Medical CenterComment on above: Performed By: #### [id number] #### [facility] ([facility]) [address] [place] [place], [place] [address]Sbqsqjhsm/100 WBC (Bld)0.7 %Normal0.0-1.0UnSycamore Medical CenterComment on above:Performed By: #### [id number] #### [facility] ([facility]) [address] [place] [address]Fyvfeljiybx (Bld) [#/Vol]0.24 10*3/uLNormal0.00-0.50UnSycamore Medical CenterComment on above:Performed By: #### [id number] #### [facility] ([facility]) [address] [place] [place] [address]Tdfaeeqecln/100 WBC (Bld)3.6 %Normal0.0-6.0UnSycamore Medical CenterComment on above:Performed By: #### [id number] #### [facility] ([facility]) [address] [place], [place] [address]Bzcomzodxsv distribution width (RBC) [Ratio]15.5 %High11.5-15.0 [facility] HospitalComment on above:Performed By: #### [id number] #### [facility] ([facility]) [address] [place], [place] [address]BVJECLHLONT MEAN CORPUSCULAR HEMOGLOBIN CONCENTRATION (G/DL) BY RPZFJGOWF65.6 g/yZZgulgk62.0-35.0UnSycamore Medical CenterComment on above:Performed By: #### [id number] #### [facility] ([facility]) [address] [place], [place] [address]Yeppxrqybq (Bld) [Volume fraction]42.7 %Bklwzd06.0-55.0 [facility] HospitalComment on above:Performed By: #### [id number] #### [facility] ([facility]) [address] [place], [place] [address]Lhfsirsyzx (Bld) [Mass/Vol]13.9 g/tMSfgbao58.0-17.0UnSycamore Medical CenterComment on above:Performed By: #### [id number] #### [facility] ([facility] [address] [place], [place] [address]Ugqbaodt granulocytes (Bld) [#/Vol]0.05 10*3/uLNormal0.00-0.20 [facility] HospitalComment on above:Performed By: #### [id number] #### [facility] ([facility] [address] [place], [place] [address]Koiobioc granulocytes/100 WBC (Bld)0.7 %Normal0.0-1.0UnSycamore Medical CenterComment on above:Performed By: #### [id number] #### [facility] ([facility]) [address] [facility] [place], [place] [address]Bxkczlefxvl (Bld) [#/Vol]1.73 10*3/uLNormal1.20-4.00UnSycamore Medical CenterComment on above:Performed By: #### [id number] #### [facility] ([facility]) [address] [place], [place] [address]Knjdzfmaxrp/100 WBC (Bld)25.7 %Ihybgt39.0-45.0UnSycamore Medical CenterComment on above:Performed By: #### [id number] #### [facility] ([facility]) [address] [place], [place] [address]VPN (RBC) [Entitic mass]28.1 maNrsxzy49.0-33.0UnSycamore Medical CenterComment on above:Performed By: #### [id number] #### [facility] ([facility]) [address] [place], [place] [address]SDQ (RBC) [Entitic vol]86.3 rUVbmenp72.0-98.0UnSycamore Medical CenterComment on above:Performed By: #### [id number] #### [facility] ([facility]) [address] [place], [place] [address]Suajfuwij (Bld) [#/Vol]0.58 10*3/uLNormal0.10-1.00UnSycamore Medical CenterComment on above:Performed By: #### [id number] #### [facility] ([facility] [address] [place] [place] [address]Ckzcamnvz/100 WBC (Bld)8.6 %Normal5.0-12.0UnSycamore Medical CenterComment on above:Performed By: #### [id number] #### [facility] ([facility]) [address] [place] [place] [address]Cisdpenmeya (Bld) [#/Vol]4.09 10*3/uLNormal1.60-7.60UnSycamore Medical CenterComment on above:Performed By: #### [id number] #### [facility] ([facility]) [address] [place] [address]Eelhhrxmcub/100 WBC (Bld)60.7 %Gdakzc26.0-72.0UnSycamore Medical CenterComment on above:Performed By: #### [id number] #### [facility] ([facility]) [address] [place] [place] [address]PDOX (PER 100 WBCS) BY AUTOMATED COUNT0.0 %Jnknyc0PcxaqfxlzlSycamore Medical CenterComment on above:Performed By: #### [id number] #### [facility] ([facility]) [address] [place] [place] [address]SSHGQWTZC (10*3/UL) IN BLOOD AUTOMATED BCILI559 10*3/uLNormal 150-400UnSycamore Medical CenterComment on above:Performed By: #### [id number] #### [facility] ([facility]) [address] [place] [address]ICK (Bld) [#/Vol]4.95 10*6/uLNormal4.20-5.70UnSycamore Medical CenterComment on above:Performed By: #### [id number] #### [facility] ([facility]) [address] [place] [address]DKG (Bld) [#/Vol]6.74 10*3/uLNormal4.00-10.60UnSycamore Medical CenterComment on above:Performed By: #### [id number] #### [facility] ([facility]) [address] [place], [place] [address]NFY CHEST W IV CONTRASTon 04-12-0908SXR CHEST W IV CONTRASTCTA chest: HISTORY: Chest [...] low as reasonably achievable. Electronically signed: Jeramie Gleason.NormalUnSycamore Medical Center D-DIMER, QUANTITATIVEon 37-32-4544ANKRMC D-DIMER (UG/L FEU) IN PLATELET POOR PLASMA0.27 mcg/mL FEUNormal0.27-0.49UnSycamore Medical CenterComment on above:Order Comment: D-Dimer values of less than 0.50 ug/ml (FEU) are considered to be a negative predictor of thrombosis. However, the D-Dimer result should be used in conjunction with pretest probabilityand should not be used alone to diagnose a thrombotic event.Performed By: #### [id number] #### [facility] ([facility]) [address] [place], [place] [address]ELGHDKaw 27-35-0318DNKXFCUj has complaints of CP and SOB for the past week. Pt has hx of afib and has a pacemaker. Pt states that MD had a concerning EKG and wanted the pt to get checked out.NormalUnBlanchard Valley Health SystemPROVon 98-51-6783XKESPG History of Present Illness Chief Complaint Patient presents with Chest Pain Shortness of Breath Initial evaluation completed by Dr. Syd Mcgergor MD at 1535. Yoli Antunez . is [...] SOB, and light headedness. 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 Plan of Care: XR chest 1 view, CBC and differential, Basic metabolic panel, Troponin I, CBC auto differential, Protime-INR, APTT, B-type natriuretic peptide, D-dimer, quantitati (more content not included)...NormalUnSycamore Medical CenterOffice Visiton 45-30-9375Ppfwxv-up [id number] Yoli Antunez 1955 M Date Provider Department Center 04/08/2024 Tami-MARQUITA VILCHIS [facility] Family History Problem Relation Age of Onset Hypertension Mother Cancer Mother Stroke Mother Hypertension Father Aortic aneurysm Father Cancer Father Aortic aneurysm Paternal Grandfather Sudden Neg Hx Family Status - Relation Status Age at Mother Father Paternal Grandfather Neg Hx Level of Service:94280 CO OFFICE/OUTPATIENT ESTABLISHED MOD MDM 30 MIN Reason for Visit and Comments: Follow-up [484266] - Dizziness shortness of breathNormalUniversOur Lady of Mercy HospitalPROTIME-INRon 05-23-6296TKO IN PPP BY COAGULATION ASSAY1.03Normal 0.90-1.10UnSycamore Medical CenterComment on above:Result Comment: ACCCP RECOMMENDED INR FOR [...] OPTIMAL THERAPEUTIC RANGE. CHEST 1995;108:231S-246S.Performed By: #### [id number] #### [facility] (BEVIBHA) [address] [place], [place] [address]NXQIUVMIXYF TIME (PT) IN PPP BY COAGULATION ASSAY13.5 Seconds Snrqzr61.3-14.8UnSycamore Medical CenterComment on above:Performed By: #### [id number] #### [facility] ([facility]) [address] [place], [place] [address]CLVJVWCT Ion 13-05-9476Kbsbdfjf I.cardiac [Mass/Vol]0.00 ng/mL Normal0.00-0.04UnSycamore Medical CenterComment on above:Performed By: #### [id number] ####[facility] ([facility])[address] [place] [address] Troponin I.cardiac [Mass/Vol]0.01 ng/mLNormal0.00-0.04UnSycamore Medical CenterComment on above:Performed By: #### [id number] ####[facility] ([facility])[address] [place], [place] [address]E. DIFFICILE PCRon 03-16-2024. DIFFICILE PCRNegativeNOMS HealthcareCLINISYNCNOMS HealthcareAbstracton [id number] Yoli Antunez Jr. 1955 M Date Provider Department Center 03/11/2024 3244-MARION MOSHER [facility]. Family History Problem Relation Age of Onset Hypertension Mother Cancer Mother Stroke Mother Hypertension Father Aortic aneurysm Father Cancer Father Aortic aneurysm Paternal Grandfather Sudden Neg Hx Family Status - Relation Status Age at Mother Father Paternal Grandfather Neg HxNormalUniversOur Lady of Mercy HospitalOffice Visiton 98-30-4519Azakio- up [id number] Yoli Antunez Jr. 1955 M Date Provider Department Center 03/11/2024 287MARQUITA OLIVER [facility]. Family History Problem Relation Age of Onset Hypertension Mother Cancer Mother Stroke Mother Hypertension Father Aortic aneurysm Father Cancer Father Aortic aneurysm Paternal Grandfather Sudden Neg Hx Family Status - Relation Status Age at Mother Father Paternal Grandfather Neg Hx Level of Service:83583 CO OFFICE/OUTPATIENT ESTABLISHED MOD MDM 30 [facility] HospitalCreatinine [Mass/volume] in Serum or Plasma Ordered By: Charlene Soria on 27-84-2072Xdnhvxnmyw [Mass/Vol]1.28 mg/dL0.70-1.30 [facility] Medical CenterNo Panel InformationOrdered By: Charlene Soria on 67-63-8173Kxveyhbef GFR (CKD-EPI)> 60.0 mL/MinSycamore Medical Center Pharmacy Creatinine Clearance (ChemN/AFChildren's Hospital of ColumbusUrea nitrogen [Mass/volume] in Serum or PlasmaOrdered By: Charlene Soria on 06-10-2023 Urea nitrogen [Mass/Vol]27 mg/dL7-Sycamore Medical CenterCA ECHO DOPPLER COMPLETEon 63-02-2043[place]tmArg[place], [place] [address] Cardiology Report Signed Patient: YOLI ANTUNEZ MR#: [id number] : 1955 Acct:[id number] Age/Sex: 68 / M ADM Date: 06/07/23 Loc: [place] Attending Dr: ELYSSA SOLANO Ordering Physician: ELYSSA SOLANO Date of Service: 06/07/23 Procedure(s): CA echo doppler complete Accession Number(s): [id number] cc: ELYSSA SOLANO ; RADHA BURRIS Patient Name: YOLI ANTUNEZ MR#: [id number] : 1955 Exam Date: 06/07/2023 Ordering Doctor: [...] not included)...TBHRadiology, Radiologist, MD - 06/08/2023 [place] [address] Cardiology Report Signed Patient: YOLI ANTUNEZ MR#: [id number] : 1955 Acct:[id number] Age/Sex: 68 / M ADM Date: 06/07/23 Loc: [place] Attending Dr: ELYSSA SOLANO Ordering Physician: ELYSSA SOLANO Date of Service: 06/07/23 Procedure(s): CA echo doppler complete Accession Number(s): [id number] cc: ELYSSA SOLANO ; RADHA BURRIS Patient Name: YOLI ANTUNEZ MR#: [id number] : 1955 Exam Date: 06/07/2023 Ordering Doctor: [...] Signed By: 06/08/23 1027 DD/ 1026 TD/TT: Ground Support Equipment Assembler: DEVIN [facility] CenterRadiology Study observation (narrative)[facility] ECHO DOPPLER COMPLETEOrdered By: Radiologist Radiology on 73-61-1728[facility] Work Phone: nm ARASELI PERF SPECT REST STRon 60-60-2926YlyArg[place], [place] [address] Nuclear Medicine Report Signed Patient: YOLI ANTUNEZ MR#: [id number] : 1955 Acct:[id number] Age/Sex: 68 / M ADM Date: 06/07/23 Loc: [place] Attending Dr: ELYSSA SOLANO Ordering Physician: ELYSSA SOLANO Date of Service: 06/07/23 Procedure(s): NM araseli perf SPECT rest str Accession Number(s): [id number] cc: ELYSSA SOLANO ; RADHA BURRIS Patient Name: YOLI ANTUNEZ MR#: [id number] : 1955 Exam Date: 06/07/2023 Ordering Doctor: [...] Signed By: 06/07/23 1337 DD/ 1336 TD/TT: Ground Support Equipment Assembler:TBHRadiology, Radiologist, - 06/07/2023 [place] [address] Nuclear Medicine Report Signed Patient: YOLI ANTUNEZ MR#: [id number] : 1955 Acct:[id number] Age/Sex: 68 / M ADM Date: 06/07/23 Loc: [place] Attending Dr: ELYSSA SOLANO Ordering Physician: ELYSSA SOLANO Date of Service: 06/07/23 Procedure(s): NM araseli perf SPECT rest str Accession Number(s): [id number] cc: ELYSSA SOLANO ; RADHA BURRIS Patient Name: YOLI ANTUNEZ MR#: [id number] : 1955 Exam Date: 06/07/2023 Ordering Doctor: [...] M.D. Signed By: 06/07/231336 DD/ 35 TD/TT: Ground Support Equipment Assembler: [facility]–SmithvilleRadiology Study observation (narrative)[facility] ARASELI PERF SPECT REST STROrdered By: Radiologist Radiology on 11-74-9774SIITSaint Luke's North Hospital–Smithville Work Phone: aLL KAPPA/LAMBDA FREE SERUMon 88-93-5369FBO KAPPA LC FREE SER-MCNC30.6 mg/LHigh3.3 - 19.4 mg/LNOMS HealthcareComment on above:Rarely, increased serum free light chains levels may not be detected or accurately quantified due to prozone phenomenon or in high viscosity samples using this immunoturbidimetric assay. Correlation with other laboratory results and clinical findings is recommended. The Jennette Free Light Chain was performed using the Binding Site Optilite immunoturbidimetric method. Result obtained with different assay methods or kits cannot be used interchangeably. [facility] KAPPA LC/LAMBDA SER1.97Hmfr8.26 - 1.65NOExcelsior Springs Medical CenterCCF LAMBDA LC FREE SERPL-MCNC17.8 mg/L5.7 - 26.3 [...] used interchangeably. Interpretation and review of laboratory resultsAbSouthwest Regional Rehabilitation CenterSpecimen Type: BLOOD SPECIMEN Ordering Facility: [facility] Address: [address] [place] [address] Original Ordering Provider: MARÍA FREIRE [facility] CenterCT ABDOMEN PELVIS W IV CONTRASTon 58-69-3028WW ABDOMEN PELVIS W IV CONTRASTInterpreted By: Miguel Conrad, STUDY: CT ABDOMEN PELVIS W IV CONTRAST; 02/01/2023 2:11 pm INDICATION: Signs/Symptoms:worsening LLQ abdominal pain and watery diarrhea. COMPARISON: None. ACCESSION NUMBER(S): [id number] ORDERING CLINICIAN: YOSSI CHEN TECHNIQUE: CT of [...] Miguel Conrad 02/01/2023 2:52 PM Dictation workstation: [id number] Health Tiffin HospitalCT Abdomen and Pelvis W contrast Candace . No acute intra- abdominal or pelvic pathology. 2. Uncomplicated colonic diverticulosis. 3. Trace hiatal hernia. 4. Scattered splenic calcific granulomas likely sequelae of chronic granulomatous infection. MACRO: None Signed by: Miguel Conrad 02/01/2023 2:52 PM Dictation workstation: [id number] MMODALInterpreted By: Miguel Conrad, STUDY: CT ABDOMEN PELVIS W IV CONTRAST; 02/01/2023 2:11 pm INDICATION: Signs/Symptoms:worsening LLQ abdominal pain and watery diarrhea. COMPARISON: None. ACCESSION NUMBER(S): [id number] ORDERING CLINICIAN: YOSSI CHEN TECHNIQUE: CT of [...] and watery diarrhea. COMPARISON: None. ACCESSION NUMBER(S): [id number] ORDERING CLINICIAN: YOSSI CHEN TECHNIQUE: CT of [...] Miguel Conrad 02/01/2023 2:52 PM Dictation workstation: [id number] [facility] Work Phone: Radiology Study observation (narrative)[facility] Work Phone: CT Abdomen and Pelvis W contrast IVOrdered By: Miguel Conrad on 47-63-9634GvvszrtdioSelect Medical [facility] Work Phone: Gastrointestinal pathogens identifiedon 02-01-2023 [...] RNA Not Detected Rotavirus RNA Not DetectedNormalNot DetectedUnChillicothe Hospital Comment on above:Performed By: #### 54136-1 #### RENÉ Hinojosa ([id number]) [facility] ([facility]) [address] [place], [place] [id number] metabolic 2000 panelon [id number] gap [Moles/Vol] 12 mmol/KVojaau64-46VfjvamyhwbWvumedicine Harrison Community HospitalComment on above:Performed By: #### 21636-8 #### MAYELIN Hill ([id number]) [facility] ([facility]) [address] [place] [address] 14845Yxgogbw [Mass/Vol]7.2 mg/dLLow8.6-10.3UnChillicothe HospitalComment on above:Performed By: #### 91029-0 #### MAYELIN Hill ([id number]) [facility] ([facility]) [address] [place] [address] 31181Fllcmzdh [Moles/Vol]106 mmol/SEafdgh69-601RkqjamejbxChillicothe HospitalComment on above:Performed By: #### 26659-6 #### MAYELIN Hill ([id number]) [facility] ([facility]) [address] [place] [address] 64721JY7 [Moles/Vol]28 mmol/NXvmxty19-49QquwdyzahoChillicothe HospitalComment on above:Performed By: #### 35312-2 #### MAYELIN Hill ([id number]) [facility] (EM) [address] [place] [address] 94314Mxyvgdzzha [Mass/Vol]1.65 mg/dLHigh0.50-1.30UnChillicothe HospitalComment on above:Performed By: #### 14941-4 #### MAYELIN Hill ([id number]) [facility] (EMC) [address] [place] [address] 66003XFH/1.73 sq M.predicted MDRD (S/P/Bld) [Vol rate/Area]45 mL/min/1.73m*2Low>60UnChillicothe HospitalComment on above:Result Comment: Calculations of estimated GFR are performed using the 2020 CKD-EPI Study Refit equation without the race variable for the IDMS-Traceable creatinine methods. https://jasn.asnjournals.org/content/early/ASN.6231185996Qlfvfpkpw By: #### 55786-5 #### MAYELIN Hill ([id number]) [facility] (EMC) [address] [place] [address] 70223Sqakiqw [Mass/Vol]83 mg/dKLkipbj27-71LifyitjnxxWvumedicine Harrison Community HospitalComment on above:Performed By: #### 16030-9 #### MAYELIN Hill ([id number]) [facility] (EMC) [address] [place] [address] 72975Zokevckof [Moles/Vol]4.3 mmol/LNormal3.5-5.3Wvumedicine Harrison Community HospitalComment on above:Performed By: #### 86077-2 #### MAYELIN Hill ([id number]) [facility] (EMC) [address] [place] [address] 35487Zugass [Moles/Vol]142 mmol/QRbbvry465-040ZinwbbsircChillicothe HospitalComment on above:Performed By: #### 35939-2 #### MAYELIN Hill ([id number]) [facility] (EMC) [address] [place] [address] 80164Ixpk nitrogen [Mass/Vol]25 mg/dLHigh6-23UnChillicothe HospitalComment on above:Performed By: #### 28869-9 #### MAYELIN Hill ([id number]) [facility] (EMC) [address] [place] [address] 99591Ykzwks Up (General Surgery)on 80-34-2595Pbfswn Up (General Surgery)Diagnoses/Problems H/O hiatal hernia (V12.79) (Z87.19) Patient Discussion/Summary followup as needed Provider Impressions Patient continues to do well. He was reassured; followup as needed Chief Complaint Patient is here for follow up History of Present Qxqxoka01-jodg-dsf patient who underwent laparoscopic hiatal hernia repair [...] BY MOUTH TWICE DAILY WITH MEALS Pyridostigmine Baldwin 60 MG Oral TabletTAKE 1 TABLET BY [...] Oral Tablet Vitamin D (Ergocalciferol) 1.25 MG (64087 UT) Oral CapsuleTAKE 1 CAPSULE BY MOUTH ONCE A WEEK Physical Exam abd: soft, non-distended, minimal tenderness over LUQ incision Signatures Electronically signed by : Yossi Chen MD; Dec 13 2022 10:59AM EST (Author) [facility] TouchworksPost Op (General Surgery)on 11-58-2719Xjrx Op (General Surgery)Diagnoses/Problems History of hiatal hernia [...] Muscle strain; ALBERT = N; Sent To: [facility] 4828 Patient Discussion/Summary Ice pack to left abdominal [...] here for post op History of Present Xpmgxjn73-stxs-nsx patient who underwent laparoscopic repair of paraesophageal hernia with toupet wrap on November 21. He was doing well until yesterday when he was playing uwq-op-obuyiqr his dog. Immediately, he started having excruciating [...] BY MOUTH TWICE DAILY WITH MEALS Pyridostigmine Baldwin 60 MG Oral TabletTAKE 1 TABLET BY [...] Oral Tablet Vitamin D (Ergocalciferol) 1.25 MG (22337 UT) Oral CapsuleTAKE 1 CAPSULE BY MOUTH ONCE A WEEK Vitals Vital Signs Recorded: 29Nov2022 01:43PM Height6 ft 6 in Qnyfio567 lb BMI Aaqepgsmpl20.24 kg/m2 BSA Calculated2.49 Physical Exam abd: soft, non-distended, tenderness over LUQ trocar site; no hernia Signatures Electronically signed by : Yossi Chen MD (more content not included)... NormalUH TouchworksDischarge Wrepedm5qx 32-75-1883Hjnsixcjk Jatrzgb3Rhmppcmjt Orders: Anticipated Discharge Date: Anticipated Discharge [id number] Hospital Providers: Provider RoleProvider Name Sharif Yossi [...] up Call to Schedule in2 weeks Phone [phone] Commentscall to make appointment Other Clinician Instructions: Other Instructions: Other Clinician InstructionsAvoid bread, salad, steak and carbonated beverages for 2 wks Electronic Signatures: Sivan Costa (POWERHOUSE MECHANIC HELPER-CREOSOTING ENGINEER) (Signed 22-Nov-2022 12:04) Authored: Discharge Orders, Provider FINAL REVIEW of Orders, Appointments, Gold Form - Survey Analyst Summary Yossi Chen) (Signed 22-Nov-2022 12:26) Authored: Discharge Orders, Provider FINAL REVIEW of Orders, Appointments, Other Clinician Instructions Last Updated: 22-Nov-2022 12:26 by Yossi Chen)[facility] HospitalOrder Reconciliationon 39-48-9747Iliyw ReconciliationPage 1 Discharge Reconciliation Document Reconciliation Type: Discharge requested on behalf of Yossi Chen (Physician) done by Yossi Chen) Discharge - Partial Reconciliation: 22-Nov-2022 12:05 by: Sivan Costa (POWERHOUSE MECHANIC HELPER-[facility]) Discharge - Reconciliation: 22-Nov-2022 12:31 by: [...] Infusion is not required (more content not included)...NormalHealthSouth Rehabilitation Hospital of LittletonAPTTon 11-21-2022 aPTT Coag (Bld) [Time]34 cWysudn80 - 38Health[facility] Hospital of LittletonComment on above: Result Comment: Note new reference range as of 10/09/2022 at 10:00am.Performed By: #### APTT ####[facility] [place], [place] [id number] Activated Partial Thromboplastin Timeon 00-29-0067oMOQ Coag (PPP) [Time]34 s27 - 38-[facility] 201 DO Work Phone: comment on above:Note new reference range as of 10/09/2022 at 10:00am.Admission Risk Screen - Adulton 37-14-8526Emtbdmspe Risk Screen - AdultAllergies: Allergies: Tikosyn: Other vancomycin: Rash penicillins: Unknown Patient Verification: New W ID Band Applied in my Departmentno Type of ID Patient is WearingW wristband, but not applied here Patient Transferred from Other Facility ([facility], [facility],etc)no Patient Identity Verified Bypatient ID Band [...] AlertFor Ebola-like Symptoms: Isolate Patient and Notify Provider/Pc Network Technician For Contact: Notify Provider/Pc Network Technician Advance Directive: Advance Directive/DNRyes Advance Directive typeLiving Will Living Will AvailabilityLiving Will not available now Living Will [id number] [place] Fall Screen: History of falling (immediate [...] Communicatenone Learning Preferencesaudio Cultural Considerationsnone Developmental Considerationsnone Amish Considerationsnone Learning Assessment (Other Learner): Other learner availableno Depression Screen: During the past month, have you often been bothered by feeling down, depressed or hopelessno During the past month, have you often had little interest or pleasure in doing thingsno Have you had any thoughts of harming anyone elseno [place] Suicide: Risk Screen Not Applicable/Able to Answerable [...] Was this within the past 3 monthsno [place] Suicide Riskmoderate Adult Nutrition Screen: Have you [...] Spiritual Screen: Are there any cultural, spiritual, jainism practices/values/needs that are important for us to knowno CAGE: Is this an injured patient at a Trauma Center ([facility]/[place]): no Vaccinations: Vaccination - Influenza Vaccination Screen: (more content not included)...NormalHealthSouth Rehabilitation Hospital of LittletonCBC AND DIFFERENTIAL on 11-21-2022% AUTOMATED IMMATURE GRAN0.3 %Normal0.0 - 0.9Health[facility] Rehabilitation Hospital of LittletonComment on above:Result Comment: Immature Granulocyte Count (IG) includes promyelocytes, myelocytes and metamyelocytes but does not include bands. Percent differential counts (%) should be interpreted in the context of the absolute cell counts (cells/L).Performed By: #### CBCDF #### [address] [id number] (Bld) [#/Vol]0.04 10*3/uLNormal0.00 - 0.10Health[facility] Hospital of LittletonComment on above:Performed By: #### CBCDF #### [address] [id number]/100 WBC (Bld)0.6 %Normal0.0 - 2.0[facility] Hospital of LittletonComment on above:Performed By: #### CBCDF #### [address] [id number] (Bld) [#/Vol]0.27 10*3/uLNormal0.00 - 0.70[facility] Hospital of LittletonComment on above:Performed By: #### CBCDF #### [address] [id number]/100 WBC (Bld)3.9 %Normal0.0 - 6.0[facility] Hospital of LittletonComment on above:Performed By: #### CBCDF #### [address] [id number] distribution width (RBC) [Ratio]13.5 %Pyozjc72.5 - 14.5Health[facility] Hospital of LittletonComment on above:Performed By: #### CBCDF #### [address] [id number] (Bld) [Volume fraction]40.1 %Low41.0 - 52.0[facility] Hospital of LittletonComment on above:Performed By: #### CBCDF #### [address] [id number] (Bld) [Mass/Vol]13.3 g/dLLow13.5 - 17.5[facility] Hospital of LittletonComment on above:Performed By: #### CBCDF #### [address] [id number] (Bld) [#/Vol]1.54 10*3/uLNormal1.20 - 4.80[facility] Hospital of LittletonComment on above:Performed By: #### CBCDF #### [address] [id number]/100 WBC (Bld)22.3 %Igkiha23.0 - 44.0[facility] Hospital of LittletonComment on above:Performed By: #### CBCDF #### [address] [id number] (RBC) [Mass/Vol]33.2 g/sPSiwvuh06.0 - 36.0[facility] of LittletonComment on above:Performed By: #### CBCDF #### [address] [id number] (RBC) [Entitic vol]83 tAAmgats48 - 100UH [facility] State HospitalComment on above:Performed By: #### CBCDF #### [address] [id number] (Bld) [#/Vol]0.71 10*3/uLNormal0.10 - 1.00[facility] HospitalComment on above:Performed By: #### CBCDF #### [address] [id number]/100 WBC (Bld)10.3 %Normal2.0 - 10.0[facility] of LittletonComment on above:Performed By: #### CBCDF #### [address] [id number] (Bld) [#/Vol]4.33 10*3/uLNormal1.20 - 7.70[facility] Hospital of LittletonComment on above:Performed By: #### CBCDF #### [address] [id number]/100 WBC (Bld)62.6 %Oaxugh67.0 - 80.0[facility] Hospital of LittletonComment on above:Performed By: #### CBCDF #### [address] [id number] (Bld) [#/Vol]210 10*3/xKSagnxh019 - 450UH [facility] HospitalComment on above:Performed By: #### CBCDF #### [address] [id number] x10E12/LNormal4.50 - 5.90[facility] Comment on above:Performed By: #### CBCDF #### [address] [id number] (Bld) [#/Vol]6.9 10*3/uLNormal4.4 - 11.3[facility] HospitalComment on above:Performed By: #### CBCDF #### [address] [id number] PANELon 58-85-7188Uqstgjv [Mass/Vol]4.4 g/dL Normal3.4 - 5.0[facility] Hospital of LittletonComment on above:Performed By: #### CMP #### [address] [id number] [Catalytic activity/Vol]60 U/DGkcavy06 - 136Health[facility] Hospital of LittletonComment on above:Performed By: #### CMP #### [address] [id number] [Catalytic activity/Vol]14 U/NNpzhlp72 - 52[facility] Hospital of LittletonComment on above:Result Comment: Patients treated with Sulfasalazine may generate falsely decreased results for ALT.Performed By: #### CMP #### [address] [id number] gap [Moles/Vol]14 mmol/FUwgzop55 - 20[facility] of LittletonComment on above:Performed By: #### CMP #### [address] [id number] [Catalytic activity/Vol]13 U/LNormal9 - 39[facility] of LittletonComment on above:Performed By: #### CMP #### [address] [id number] [Mass/Vol]0.3 mg/dLNormal0.0 - 1.2[facility] of LittletonComment on above:Performed By: #### CMP #### [address] [id number] [Mass/Vol]7.1 mg/dLLow8.6 - 10.3[facility] of LittletonComment on above:Performed By: #### CMP #### [address] [id number] [Moles/Vol]106 mmol/QSprpkf87 - 107[facility] HospitalComment on above:Performed By: #### CMP #### [address] [id number] [Mass/Vol]1.38 mg/dLHigh0.50 - 1.30[facility] HospitalComment on above:Performed By: #### CMP #### [address] [id number]/1.73 sq M.predicted among non-blacks MDRD (S/P/Bld) [Vol rate/Area]55 mL/min/{1.73_m2}Abnormal>90[facility] HospitalComment on above:Result Comment: CALCULATIONS OF ESTIMATED GFR ARE PERFORMED USING THE 2020 CKD-EPI STUDY REFIT EQUATION WITHOUT THE RACE VARIABLE FOR THE IDMS-TRACEABLE CREATININE METHODS. https://jasn.asnjournals.org/content/early//ASN.6431920777Rffrpiqtf By: #### CMP #### [address] [id number] [Mass/Vol]105 mg/dAJvsi23 - 99[facility] HospitalComment on above:Performed By: #### CMP #### [address] [id number] (Bld) [Moles/Vol]24 mmol/PVkvdyb18 - 32[facility] HospitalComment on above:Performed By: #### CMP #### [address] [id number] [Moles/Vol]3.8 mmol/LNormal3.5 - 5.3[facility] HospitalComment on above:Performed By: #### CMP #### [address] [id number] [Mass/Vol]7.2 g/dLNormal6.4 - 8.2[facility] of LittletonComment on above:Performed By: #### CMP #### [address] [id number] [Moles/Vol]140 mmol/UXtutfz718 - 145[facility] HospitalComment on above:Performed By: #### CMP #### [address] [id number] nitrogen [Mass/Vol]23 mg/dLNormal6 - 23[facility] of LittletonComment on above:Performed By: #### CMP #### [address] [id number] Event Note-Surgical first assistanton 11-21-2022 Clinical Event Note-Surgical first assistantClinical Event: Clinical Event Note: TopicSurgical assistant store director Details graduate assistant to dr Yossi Chen. Procedure: Laparoscopic repair of Type 3 paraesophageal hernia with Toupet wrap. Provider/Team Contact Info-Pager Fab Law PA-C [phone] Electronic Signatures: Kee Law (PAC) (Signed 21-Nov-2022 14:31) Authored: Clinical Event Note Last Updated: 21-Nov-2022 14:31 by Kee Law (PAC)[facility] HospitalComplete Blood Count + Differentialon 38-64-6372Mdrutkgrl/100 WBC (Bld)0.6 %0.0 - 2.0[facility] 201 DO Work Phone: Erythrocyte distribution width (RBC) [Ratio]13.5 %See BelowKaiser Sunnyside Medical Center 201 DO Work Phone: comment on above:Reference Range: 11.5 - 14.5 Hematocrit (Bld) [Volume fraction]40.1 %below low thresholdSee [facility] 201 DO Work Phone: comment on above:Reference Range: 41.0 - 52.0 Hemoglobin (Bld) [Mass/Vol]13.3 g/dLbelow low thresholdSee [facility] 201 DO Work Phone: Comment on above:Reference Range: 13.5 - 17.5 Lymphocytes/100 WBC (Bld)22.3 %See BelowSanford USD Medical Centeria 201 DO Work Phone: Comment on above:Reference Range: 13.0 - 44.0MCHC (RBC) [Mass/Vol]33.2 g/dLSee BelowSanford USD Medical Centeria 201 DO Work Phone: Comment on above:Reference Range: 32.0 - 36.0MCV (RBC) [Entitic vol]83 fL80 - 100MP-[facility] 201 DO Work Phone: Monocytes/100 WBC (Bld)10.3 %2.0 - 10.0MP-[facility] 201 DO Work Phone: Neutrophils/100 WBC (Bld)62.6 %See BelowKaiser [facility]nyside [facility] 201 DO Work Phone: Comment on above:Reference Range: 40.0 - 80.0Platelets (Bld) [#/Vol]210 10*3/uL150 - 450MP-[facility] 201 DO Work Phone: RBC (Bld) [#/Vol]4.84 {x10E12/L}See BelowSanford USD Medical Centeria 201 DO Work Phone: Comment on above:Reference Range: 4.50 - 5.90WBC (Bld) [#/Vol]6.9 10*3/uL4.4 - 11.3MP-[facility] 201 DO Work Phone: Complete Blood Count + Differential0.04 {x10E9/L}See BelowSanford [facility] Medical Centeria 201 DO Work Phone: Comment on above:Reference Range: 0.00 - 0.10Complete Blood Count + Differential0.27 {x10E9/L}See BelowKaiser Sunnys[facility] 201 DO Work Phone: [phone] on above:Reference Range: 0.00 - 0.70Complete Blood Count + Differential0.71 {x10E9/L}See BelowKaiser [facility]nys[facility] 201 DO Work Phone: [phone] on above:Reference Range: 0.10 - 1.00Complete Blood Count + Differential1.54 {x10E9/L}See BelowKaiser [facility]nys[facility] 201 DO Work Phone: [phone] on above:Reference Range: 1.20 - 4.80Complete Blood Count + Differential4.33 {x10E9/L}See BelowKaiser Sunnyside [facility] 201 DO Work Phone: [phone] on above:Reference Range: 1.20 - 7.70Complete Blood Count + Differential3.9 %0.0 - 6.0[place] [address] DO Work Phone: Complete Blood Count + Differential0.3 %0.0 - 0.9[place] [address] DO Work Phone: [phone] on above:Immature Granulocyte Count (IG) includes promyelocytes, myelocytes and metamyelocytes but does not include bands. Percent differential counts (%) should be interpreted in the context of the absolute cell counts (cells/L).Laboratory - Chemistry and Chemistry - challengeon 90-90-9902Qorqxow BCP dye [Mass/Vol]4.4 g/dL3.4 - 5.0[place] [address] DO Work Phone: ALP [Catalytic activity/Vol]60 U/L33 - 136[facility] 201 DO Work Phone: ALT With P-5'-P [Catalytic activity/Vol]14 U/L10 - 52 -[place] [address] DO Work Phone: Comment on above:Patients treated with Sulfasalazine may generate falsely decreased results for ALT.Anion gap [Moles/Vol]14 mmol/L10 - 20MP-[facility] 201 DO Work Phone: AST With P-5'-P [Catalytic activity/Vol]13 U/L9 - 39 MP-[facility] 201 DO Work Phone: Bilirubin [Mass/Vol]0.3 mg/dL0.0 - 1.2MP-[facility] 201 DO Work Phone: Calcium [Mass/Vol]7.1 mg/dLbelow low threshold8.6 - 10.3MP-[facility] 201 DO Work Phone: Chloride [Moles/Vol]106 mmol/L98 - 107MP-[facility] 201 DO Work Phone: DO9 [Moles/Vol]24 mmol/L21 - 32MP-[facility] [place] 201 DO Work Phone: Creatinine [Mass/Vol]1.38 mg/dLabove high thresholdSee BelowMP-[facility]-[place] 201 DO Work Phone: Comment on above:Reference Range: 0.50 - 1.30Glucose [Mass/Vol]105 mg/dLabove high - 99MP-[facility] 201 DO Work Phone: Potassium [Moles/Vol]3.8 mmol/L3.5 - 5.3MP-[facility] 201 DO Work Phone: Protein [Mass/Vol]7.2 g/dL6.4 - 8.2MP-[facility] [place] 201 DO Work Phone: Sodium [Moles/Vol]140 mmol/L136 - 145MP-[facility] 201 DO Work Phone: Urea nitrogen [Mass/Vol]23 mg/dL6 - 23MP-[facility] 201 DO Work Phone: [phone] - Coagulationon 47-45-6291DBZ Coag (PPP) [Relative time]1.0 {INR}0.9 - 1.1MP-[facility] 201 DO Work Phone: PT Coag (PPP) [Time]11.7 s9.8 - 12.8MP-[facility] 201 DO Work Phone: Comment on above:Note new reference range as of 10/09/2022 at 10:00am.No Panel Informationon 65-02-9334ZJ-[place] [facility] 201 DO Work Phone: [phone] {mL/min/1.73m2}Abnormal>90MP-[facility] 201 DO Work Phone: comment on above:CALCULATIONS OF ESTIMATED GFR ARE PERFORMED USING THE 2020 CKD-EPI STUDY REFIT EQUATION WITHOUT THERACE VARIABLE FOR THE IDMS-TRACEABLE CREATININE METHODS.https://jasn.asnjournals.org/content/early//ASN.8761267056 PT/INRon 27-22-3895BT Coag (PPP) [Time]11.7 sNormal9.8 - 12.8[facility] HospitalComment on above:Result Comment: Note new reference range as of 10/09/2022 at 10:00am.Performed By: #### PTINR ####[place] [address] [place], [place] [address]DV, INR1.3Wngmqw5.9 - 1.1[facility] HospitalComment on above:Performed By: #### PTINR ####[address] [id number] Profile - Adult v2on 09-53-5429Dwudxvh Profile - Adult g1Onivxqx: Initial Info: How to be AddressedFred(1) Spoken Language PreferredEnglish (1) Stated Reason for Admissionscheduled hernia repair Wants Family/Rep Notified of Admissionn/a; family present Notify PCPnotify PCP Informed of Patient Visiting Rightsyes Arrived FromOR Patient Belongingsremains with patient Patient Belongings Remaining with Patientclothing; cell phone/electronics Medications Brought to Hospitalno General Health: Blood Avoidance/Restrictionsnone(1) Previous Transfusion Reactionnot applicable(1) Weight in kg113.7 kilogram(s) Weight in ncl036.6 pound(s) Weight Methodstated Scale Typebed Height in [...] From Patient Profile - Preop v3 19-Nov-2022 11:56[facility] Surgical Pathology Departmenton 07-90-1611OZJ Surgical Pathology DepartmentName YOLI ANTUNEZ JR. Pathologist: KAITLYN LAW MD Date of Procedure: 11/21/2022 Date Received: 11/21/2022 Date Reported 12/03/2022 Submitting Physician: YOSSI CHEN MD Location: [facility] Copy To/Referring/Attending: RADHA BURRIS MD Other External # FINAL DIAGNOSIS A. HIATAL HERNIA SAC: -- BENIGN ADIPOSE TISSUE AND CONTAINED BENIGN LYMPH NODES. Electronically Signed Out By KAITLYN LAW MD/AWP By the signature on this report, the individual or group listed as making the Final Interpretation/Diagnosis certifies that they have reviewed this case. Diagnostic interpretation performed at [facility] [address] [place] [address] Clinical History: Physician Contact Number: [phone] Fixative (A): Formalin Clinical Diagnosis History HIATAL HERNIA. Specimens Submitted As: A: HERNIA SAC Gross Description: Received in formalin, labeled with the patient's name and hospital number and hernia sac , are multiple segments of yellow fibroadipose soft tissue aggreagting to 8.0 x 5.0 x 2.5 cm. Areas of induration, nodularity, hemorrhage or necrosis are not seen. Mining Technician sections are submitted in one cassette. LMP lmp/11/27/2022 [facility] Department of Pathology [address] [place], [place] [address]NoUCHealth Highlands Ranch HospitalComment on above:Performed By: #### [facility] #### [facility] Surgical Pathology Department [address] [place], [place] [id number] Profile - Preop v3on 78-88-6205Nqpzzjd Profile - Preop t8Mxatzst Profile - Preop: Initial Info: Patient DemographicsName: YOLI ANTUNEZ Date: 1955 Address: [address] [place] [address], [id number] Date/Time 12:28 Primary Phone [phone] Instructions Givenappropriate clothing, bring glasses/contacts case, bring responsible adult as the non emergency services ambulance driver (procedure may be cancelled if no non emergency services ambulance driver), center location, insurance information, remove jewerly/piercings, time to arrive Prep Instructions Reviewedn/a Instructions/Prep CommentNPO after midnight - bring event recorder info/ID card day of procedure How to be AddressedFred Spoken Language PreferredEnglish Source of Informationpatient Stated Reason for Admissionhiatal hernia repair Primary Contact Name and Numberjames Smith [phone] Limitations on Visitors/Phone Callsnone Medications Brought to Hospitalno General Health: Weight in kg113.5 kilogram(s) Weight in bfb162.2 pound(s) Weight Methodactual (measured) Scale Typestanding Height [...] recorder- right side of chest- checked at [place] kidney stone watchman device cataract detached retina [...] Symptoms/Conditionsdysrhythmia; hypertension Cardiovascular Management Strategiesmedication therapy; medical affairs specialist Cardiovascular Symptoms/Conditions Commentcardiac ablation for atrial fib/ watchman device/ Event recorder (asked to bring ID in day of procedure - Checked at [place] office) Endocrine Symptoms/Conditionsthyroid disease Endocrine Management Strategiesmedication [...] Withspouse Living Arrangementshouse Resource/Environmental Concernsnone Anticipated Transition [place] [facility] Anticipated at Transitionnone Tobacco Use: Tobacco Useyes Tobacco Typecigarettes Number of Packs per Day2 Number of yrs15 Pack yrs30 Tobacco Commentquit smoking 1986 Pre-op Checklist: Arrival Upgt82-Dlo-2079 Arrival Time05:23 Procedure TypeLaparoscopic Hiatal Hernia repair with Toupet wrap possible feeding tube and upper endoscopy NPOyes Last Food Zoducu93-Ovo-3043 22:00 Last Clear Fluid Rykjtu80-Qwc-8173 22:00 ID Band On Patientpatient ID (name), [...] Information Review: Allergies, Ho (more content not included)...[facility] Initial Visit (General Surgery)on 41-70-2809Vmqvram Visit (General Surgery) Diagnoses/Problems Hiatal hernia (553.3) [...] gas bloat, inability to burp, blood clot, HI and stroke. All questions answered and he is willingto proceed. He will be on a full liquid diet for 3 days after surgery and then advance to a soft diet. Avoid bread [place] steak and carbonated beverage for 2 weeks. Chief Complaint Patient referred by Dr. Daily for a hiatal hernia consult. History of Present B[age]lye38 y/o male patient referred for symptomatic hiatal [...] content not included)...NormalUH Touchworks Established Visit (Otolaryngology)on 95-97-0707Tkxgulufhhs Visit (Otolaryngology)Patient Discussion/Summary Diagnose: ADA intolerant to [...] waking up feeling unrefreshed, excessive daytime fatigue. Jasper Sleepiness Scale Score is 16 /24. Fatigue [...] ( (more content not included)...NormalUH TouchworksOrder Reconciliationon 47-08-0805Pztbq ReconciliationPage 1 Discharge Reconciliation Document Reconciliation Type: [...] Vitamin B2 1.25 milligram(s) orally once a dayUniversity Hospitals [facility] Center Patient Profile - Preop v3on 20-83-5456Jiolaqq Profile - Preop m7Varjngg Profile - Preop: Initial Info: Patient DemographicsName: YOLI ANTUNEZ Date: 1955 Address: [address] [place] [address] Primary Phone [phone] Instructions Giventime to arrive, Arrival time of 0930 for surgery time of 1100 How to be Addressedfrederick Spoken Language PreferredEnglish Stated Reason for Admissionsleep study Primary Contact Name and Numbersee facesheet Medications Brought to Hospitalno General Health: Weight in kg116.6 kilogram(s) Weight in qlz564 pound(s) Height in feet6 feet Height in inches5.95 inch(es) Height in cm197.9 centimeter(s) BMI (kg/m2)29.771 square meter Patient or Family Member Reaction to Anesthesiapatient reaction Patient Reaction to Anesthesiaawakening delayed Blood Avoidance/Restrictionsnone Previous Transfusion Reactionnot applicable Health Mgmt: Symptoms/Conditions Managed at Homecardiovascular; endocrine Barriers to Managing Healthnone Relationship/Environ: Lives Withspouse Living Arrangementshouse Resource/Environmental Concernsnone Anticipated [place] [facility] Anticipated at Transitionnone Tobacco Use: Tobacco Useno Pre-op Checklist: Arrival Ngwm29-Cjk-9784 Arrival Time09:59 Procedure Typesleep study NPOyes Last Food Uawfwq98-Cgb-2140 00:00 Last Clear Fluid Ewmyme40-Len-8625 00:00 ID Band On Patientpatient ID (name), [...] Information Last Updated: 15-Oct-2022 10:00 by Letty Godfrey)[facility] CenterElectrocardiogram 12 Leadon 16-31-2412Wbdhpjypcepguvyis 12 LeadVentricular Rate 70 Atrial Rate 70 P-R Interval 194 QRS Duration 78 Q-T Interval 420 QTC Calculation(Bazett) 453 P Baltic 38 R Baltic 13 T Baltic 66 QRS Count 12 Q Onset 222 P Onset 125 P Offset 161 T Offset 432 QTC Fredericia 442 Diagnosis Class Normal Diagnosis Normal sinus rhythm Normal ECG No previous ECGs available Confirmed by Aliya Candelaria ([id number]) on 10/14/2022 8:34:16 PMNLake City Hospital and ClinicNo Panel Informationon 10-10-2022 [email or web address]?Kasandra [email or web address]& Date=10-10-2022&Time=14%3a24%3a36%3a00&TestType=ECG&Site=10&OutputType=PDF&Ext=P DFPremier Health Upper Valley Medical Center Work Phone: Normal sinus rhythmPremier Health Upper Valley Medical Center Work Phone: NormalUniFormerly [facility] Work Phone: [phone] [address] [place] [address] Work Phone: [phone] [address] [place] [address] Work Phone: [phone] [address] [place] [address] Work Phone: [phone] [address] [place] [address] Work Phone: [phone] [address] [place] [address] Work Phone: [phone] [address] [place] [address] Work Phone: [phone] [address] [place] [address] Work Phone: [phone] [address] [place] [address] Work Phone: [phone] [address] [place] [address] Work Phone: [phone] [address] [place] [address] Work Phone: [phone] [address] [place] [address] Work Phone: [phone] [address] [place] [address] Work Phone: [phone] [address] [place] [address] Work Phone: [phone] [address] [place] [address] Work Phone: Established Visit (Otolaryngology)on 09-25-2022 Established [...] symptoms appear more central. Sees neurology at [facility] who suspects he may have autonomic dysfunction - F/u with [facility] neurology as scheduled 2) [...] telehealth visit. Dysphagia follow-up History of Present Ckmfyom89 year old man with history of intermittnet [...] more in his throat. Seeing neurology at [facility] for his intermittent aphasia. Still awaiting manometry results. 09/04/22: Here for follow-up. Esophagram completed 08/10/22 with moderate hiatal hernia, possible inflammatorynarrowing at GEJ, also area of mucosal irregularity for which endoscopy was recommended. He had manometry placed under endoscopy on 08/30/22, overall esophagus appeared normal on their exam with rcnuj3of nodule at GEJ that was biopsied. Pathology [...] (more content not included)...NormalUH TouchworksEstablished Visit (Otolaryngology)on 39-30-7328Vwuwdpllvak Visit (Otolaryngology) Diagnoses/Problems Non-smoker (V49.89) (Z78.9) Dysphagia, [...] swallowing problems. Dr. Perrin's office number is [phone]. Please use this number to contact her and her care team regardless of which office you use to access care. This number is the most direct way to communicate with all the members of the care team. Dr. Perrin?s press secretary answers the office phone from 9am-4pm Sat-Sat. Call [phone] and push 2. She can help you with scheduling of appointments, general questions and information. You may needto leave a message if she is helping another patient. In this case, someone from the team will callyou back the same day if you leave your message before 3pm, or the next business morning. Dr. Perrin?s nurse and can be reached by calling [phone]. We make every effort to return phone calls the same day. If you are in need of urgent assistance after hours, please call [phone] ask for ENT virtualization consultant. Dr. Perrin works closely with speech therapists as they work together to help solve your issues with speech and swallowing. You may see a speech therapist during your appointment if Dr. Perrin feels this is needed. If you need to reach speech therapy to talk with a therapist or to schedule an appointment, please call [phone]. Others who may be included in your care are dieticians, social workers, audiologists, neurologists,and physical therapists. Dr. Perrin will provide these referrals as needed. Please let her know if you would like to request a specific referral. For your convenience, Dr. Perrin sees patients at different [facility] locations including the [facility] at [facility], and [facility] at the main [facility]. While we try to make your appointments [...] discuss his care with Dr. Long at [facility] to understand current treatment [...] with Dr. Michaud. He (more content not included)...[facility] TouchworksEstablmission hospital mcdowell Visit (Otolaryngology)No report was [facility] Informationon 09-13-2022 [email or web address]={[email or web address]}[facility] Work Phone: [phone]-[facility] [facility] Work Phone: [phone]-[facility]fikytraefphSan[facility] Work Phone: [facility] Surgical Pathology Departmenton 98-66-7001HIJ Surgical Pathology DepartmentName YOLI ANTUNEZ JRAmarjit Pathologist: LIZZ LINN MD Date of Procedure: 09/13/2022 Date Received: 09/13/2022 Date Reported 09/26/2022 Submitting Physician: RUBY DAILY M.D. Location: [facility] Other External # FINAL DIAGNOSIS A. GE [...] reviewed this case. Diagnostic interpretation performed at [facility] [address] [place] [address] Clinical History: R/O Esophagitis and metaplasia Specimens Submitted As: A: GE JUNCTION COLD FORCEPS Gross Description: Received in formalin, labeled with the patient's name and hospital number and A , are 2 fragments of martin, soft tissue aggregating to 0.5 x 0.2 x 0.2 cm. The specimen is submitted in toto in one cassette. [facility]/09/21/2022 [facility] Department of Pathology [address] [place], [place] [address]Elbow Lake Medical CenterComment on above:Performed By: #### [facility] #### [facility] Surgical Pathology Department [address] [place] [address]28[address]Vpgyb GI endoscopyon 06-72-2297Elhwi GI endoscopyPATIENTNAME Patient Name: Yoli Antunez EXAMDATE Procedure Date: 09/13/2022 3:41 PM PATIENTID PATIENTACCOUNTNUM PATIENTDOB Date of : 1955 ADMITTYPE Admit Type: Outpatient PATIENTROOM Site: [facility] Procedure Room 2 ETHNICITY Ethnicity: Not or RACE Race: White PROVDR Attending MD: Ruby Daily MD, [id number] ENDOPROCEDURENAME Procedure: Upper GI endoscopy INDICATION Indications: Dysphagia, cricopharyngeal web PRIMARYPROVIDER Providers: Ruby Daily MD (Doctor), Vale Mercado RN (Nurse), Sabina Atkins, Non Destructive Testing Specialist EDREFPROVIDER Referring: Ruby Daily MD CURRENT_MEDS Medicines: [...] medications. CPT_CODES Procedure Code(s): --- Professional --- 02569, Moderate sedation services provided by the same physician or other qualified health day care assistant performing the diagnostic or therapeutic service that the sedation supports, requiring the presence of an independent trained observer to assist in the monitoring of the patient's level of consciousness and physiological status; initial 15 minutes of intraservice time, patient age 5 years or older [address], Unlisted procedure, esophagus ICD_CODES Diagnosis Code(s): --- Professional --- J38.3, O (more content not included)...[facility] HospitalURGICAL PATHOLOGY RESULTSon 26-35-2131Mfypeitrg ReportName YOLI ANTUNEZ JR. Pathologist: MAYELIN AVILEZ [...] ABNORMALITIES. Electronically Signed Out By MAYELIN AVILEZ MD/[facility] By the signature on this report, the individual or group listed as making the Final Interpretation/Diagnosis certifies that they have reviewed this case. Diagnostic interpretation performed at [facility] [address] [facility] [address] Clinical History: A) R/O H.pylori B) R/O [...] in toto in one cassette. DMB dmb/09/04/2022 [facility] Department of Pathology [address] [address]UnSelect Medical OhioHealth Rehabilitation HospitalEstablished Visit (Otolaryngology)on 86-39-3979Sicoapctndq Visit (Otolaryngology) Diagnoses/Problems Non-smoker (V49.89) (Z78.9) GERD [...] telehealth visit. Dysphagia follow-up History of Present [age]obqmpn16 year old man with history of dysphagia referred to me by Dr. Perrin for swallowing issues. 09/04/22: Here for follow-up. Esophagram completed 08/10/22 with moderate hiatal hernia, possible inflammatorynarrowing at GEJ, also area of mucosal irregularity for which endoscopy was recommended. He had manometry placed under endoscopy on 08/30/22, overall esophagus appeared normal on their exam with fajrc8ff nodule at GEJ that was biopsied. Pathology [...] possible inflammatory na (more content not included)...[facility] 67-96-7856TcecBeth Diego MD - 10/15/2022 Patient Name: Yoli Antunez Procedure Date: 08/30/2022 7:32 AM Date of : 1955 Admit Type: Outpatient Site: [facility] Procedure Room 5 Ethnicity: Not or Race: White Attending MD: ELSIEO Williamson, [id number] Procedure: Upper GI endoscopy Indications: Dysphagia for 5 years to both liquids and solids Patient Profile: This is a 67 year old male. Refer to note in patient chart for documentation of history and physical. Providers: ELISEO Williamson (Doctor), Jaylen Lo, CARLOS (Nurse), Florentino De Dios, Non Destructive Testing Specialist, Kristin Mcdaniels RN (Nurse) Referring: Radha Burris [...] specimen was done by the nurse and bio medical technician using the patient's name and medical record number. Estimated blood loss was minimal. A single 3 mm nodule was found at the gastroesophageal junction, 39 cm from the incisors. Biopsies were taken with a cold forceps for histology. Verification of patient identification for the specimen was done by the nurse and bio medical technician using the patient's name and medical [...] specimen was done by the nurse and bio medical technician using the patient's name and medical [...] the right naris un (more content not included)...[facility] Work Phone: Radiology Study observation (narrative)[facility] Work Phone: EGDOrdered By: Beth Diego on 37-52-9871KsskkkobkcSelect Medical OhioHealth Rehabilitation Hospital Work Phone: No Panel Informationon 36-87-6452Kgnj YOLI ANTUNEZ JR. Pathologist: MAYELIN AVILEZ MD Date of Procedure: 08/30/2022 Date [place] [address] Work Phone: [email or web address]}CK-Mizbcrejwequry-Dwvjbkz Work Phone: [phone]-Zmnhwowxeaizxr-Stoney Work Phone: Order Reconciliationon 10-95-0327Opzog Reconciliation Page 1 Discharge Reconciliation Document Reconciliation Type: Discharge requested on behalf of Beth Diego (Physician) done by Beth Diego) Discharge - Reconciliation: 30-Aug-2022 08:00 by: Beth Diego) Home Medications EnteredCHARLTON MEMORIAL HOSPITALE MEDICATIONS AT DISCHARGE DateReconciliation Comment/ Additional [...] Vitamin B2 1.25 milligram(s) orally once a dayNormalUChildren's Hospital at Er[facility] Surgical Pathology Departmenton 50-32-0970JMC Surgical Pathology Department Name YOLI ANTUNEZ JR. [...] ABNORMALITIES. Electronically Signed Out By MAYELIN AVILEZ MD/[facility] By the signature on this report, the individual or group listed as making the Final Interpretation/Diagnosis certifies that they have reviewed this case. Diagnostic interpretation performed at [address] [facility] [address] Clinical History: A) R/O H.pylori B) R/O [...] in toto in one cassette. DMB dmb/09/04/2022 [facility] Department of Pathology [address] [place], [place] [address]NoUCHealth Highlands Ranch HospitalComment on above:Performed By: #### [facility] #### [facility] Surgical Pathology Department [address] [place] [address]Upksl GI endoscopyon 68-08-8975Ijabd GI endoscopyPATIENTNAME Patient Name: Yoli Antunez EXAMDATE Procedure Date: 08/30/2022 7:32 AM PATIENTID PATIENTACCOUNTNUM PATIENTDOB Date of : 1955 ADMITTYPE Admit Type: Outpatient PATIENTROOM Site: [facility] Procedure Room 5 ETHNICITY Ethnicity: Not or RACE Race: White PROVDR Attending MD: ELISEO Williamson, [id number] ENDOPROCEDURENAME Procedure: Upper GI endoscopy INDICATION Indications: Dysphagia for 5 years to both liquids and solids PTPROFILE Patient Profile: This is a 67 year old male. Refer to note in patient chart for documentation of history and physical. PRIMARYPROVIDER Providers: ELISEO Williamson (Doctor), Jaylen Lo RN (Nurse), Florentino De Dios, Non Destructive Testing Specialist, Kristin Mcdaniels RN (Nurse) EDREFPROVIDER Referring: Radha Burris MD [facility] Provider Care Team: Ruby Daily MD CURRENT_MEDS [...] specimen was done by the nurse and bio medical technician using the patient's name and medical record number. Estimated blood loss was minimal. A single 3 mm nodule was found at the gastroesophageal junction, 39 cm from the incisors. Biopsies were taken with a cold forceps for histology. Verification of patient identification for the specimen was done by the nurse and bio medical technician using the patient's name and medical [...] specimen was done by the nurse and bio medical technician using the patient's name and medical [...] antrum and prepyloric re (more content not included)...NormalInspira Medical Center VinelandEstablished Visit (Otolaryngology)on 67-93-2395Dzneotxuslw Visit (Otolaryngology)Diagnoses/Problems Difficulty with CPAP use (V49.89) [...] waking up feeling unrefreshed, excessive daytime fatigue. Jasper Sleepiness Scale Score is 16 /24. Fatigue [...] however, (more content not included)...NormalUH TouchworksTobacco Screening.on 64-99-8890Mfgjp depression screening assessmentNo CG-Skvoqsnbtojgga-Tavuc MAC1 302 Work Phone: Fall risk assessmenta) No falls within the last year KU-Nygvsywwybahoe-Jvjwk MAC1 302 Work Phone: Tobacco use status CPHSb) MtXV-Aryoofmssanout-Mxsbx MAC1 302 Work Phone: SLP (Progress Note)on 39-48-1251KEP (Progress Note) Therapy Diagnosis Assessed Dysphagia, oropharyngeal [...] to doctors? appointments. Primary Language for learning: Azerbaijani. Insurance Insurance reviewed Visit number: 3 Onset Date: 2022 Medicare Certification Period: Beginnin2022 Endin2022 Subjective Living Environment: home Patient arrival: independent Patient alert and ready to participate in telehealth visit this date. 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 Patient will safety [...] verbalized understanding and agreement: yes CPT Code 09382 Treatment of swallowing dysfunction and/or oral function for feeding Signatures Electronically signed by : Yoanna Quigley CCC-DATABASE MARKETING ANALYST; Aug 13 2022 3:44PM EST (Author)[facility] TouchworksGI ESOPHAGRAMon 63-87-4790KG ESOPHAGRAMMRN: [id number] Patient Name: YOLI ANTUNEZ STUDY: GI ESOPHAGRAM; ; 08/10/2022 1:49 pm INDICATION: assess motility, r/o achalasia, assess mass/lesions R13.12: Dysphagia, oropharyngeal phase. COMPARISON: None. ACCESSION NUMBER(S): [id number] ORDERING CLINICIAN: RUBY DAILY TECHNIQUE: Fluoroscopic guided single and double contrast barium esophagram. FINDINGS: Diabetologist view of the chest, abdomen shows loop [...] this study. Electronically signed by: JAE SOUTH MDUniversity Hospitals [facility] Medical Center Radiologyon 39-59-8726LD Esophagus Views W contrast PONormal OL-Catwjmzbusvwel-Dueozla Work Phone: established Visit (Otolaryngology)on 07-31-2022 Established [...] a telehealth visit. Swallow History of Present Gsovwpp82 year old man with history of dysphagia [...] MG (more content not included)...NormalUH TouchworksTobacco Screening.on 37-04-5905Mkvwr depression screening assessmentNo SV-Ajfxfmnyfqsnfe-Vpxclui Work Phone: Fall risk assessmentb) One or more falls in the last tnydQK-Rggspghjgwfbri-Zhhrmeo Work Phone: Tobacco use status CPHSb) HtKG-Tnvzlaznvwlupn-Iljyypq Work Phone: sLP (Progress Note)on 53-34-8469MLG (Progress Note)No report was sentNormalUH TouchworksSLP (Progress [...] to doctors? appointments. Primary Language for learning: Azerbaijani. Insurance Insurance reviewed Visit number: 2 Onset Date: 2022 Medicare Certification Period: Beginnin2022 Endin2022 Subjective Living Environment: home Patient arrival: independent Patient alert and ready to participate in telehealth visit this date. 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 COMPARISON: None. ACCESSION NUMBER(S): [id number] ORDERING CLINICIAN: RANJANA PERRIN TECHNIQUE: MBSS completed. Informed verbal consent obtained prior to completion of exam. Trials of thin, nectar thick, honey thick, puree, soft-solids, and regular solids given. Fluoroscopy time : 3 minutes, 2 seconds. DATABASE MARKETING ANALYST: Osmel Lozano M.S., CCC-DATABASE MARKETING ANALYST Phone/Pager: Can be contacted via CheckInPage or SPEECH FINDINGS: Reason for referral: A [...] a home program 2-3 times per day. snf goals: Patient will be able to tolerate [...] regarding the esophageal phase of the swallow. DATABASE MARKETING ANALYST impressions with severity rating: Patient presents with [...] mL nectar thi (more content not included)... NormalHealthSouth Rehabilitation Hospital of LittletonNo Panel Informationon 60-69-5655Jjkuqr NN-Lkzoaetsndeict-Dbpokqy Voice Work Phone: Swallow Evaluation v2-Modified Barium Swallow, SLPon 22-23-6345Gsjbwms Evaluation v2-Modified Barium Swallow, SLPRehab: Info: Time IN11:05 Time OUT11:55 Total Treatment Vivmcdk57 Evaluation TypeModified Barium Swallow, DATABASE MARKETING ANALYST Impression: Assessment (Swallow Eval)DATABASE MARKETING ANALYST impressions with severity rating: [Patient presents with [...] of the EMR/AEMR Electronic Signatures: Osmel Lozano (DATABASE MARKETING ANALYST) (Signed 18-Jul-2022 14:17) Authored: Fransico, Impression Last Updated: 18-Jul-2022 14:17 by Osmel Lozano (DATABASE MARKETING ANALYST)[facility] ([facility])on 51-85-2599Kuiqecqeuyp Visit (Otolaryngology)Diagnoses/Problems Non-smoker (V49.89) (Z78.9) GERD (gastroesophageal [...] swallowing problems. Dr. Perrin's office number is [phone]. Please use this number to contact her and her care team regardless of which office you use to access care. This number is the most direct way to communicate with all the members of the care team. Dr. Perrin?s press secretary answers the office phone from 9am-4pm Mon-Fri. Call [phone] and push 2. She can help you with scheduling of appointments, general questions and information. You may needto leave a message if she is helping another patient. In this case, someone from the team will callyou back the same day if you leave your message before 3pm, or the next business morning. Dr. Perrin?s nurse and can be reached by calling [phone]. We make every effort to return phone calls the same day. If you are in need of urgent assistance after hours, please call [phone] ask for ENT virtualization consultant. Dr. Perrin works closely with speech therapists as they work together to help solve your issues with speech and swallowing. You may see a speech therapist during your appointment if Dr. Perrin feels this is needed. If you need to reach speech therapy to talk with a therapist or to schedule an appointment, please call [phone]. Others who may be included in your care are dieticians, social workers, audiologists, neurologists,and physical therapists. Dr. Perrin will provide these referrals as needed. Please let her know if you would like to request a specific referral. For your convenience, Dr. Perrin sees patients at different [facility] locations including the [facility] at [facility], and [facility] at the main [facility]. While we try to make your appointments [...] Omeprazole (more content not included)...NormalUH TouchworksTobacco Screening.on 26-54-2228Yqslk depression screening assessmentNo TL-Qhmxrbruhebxqq-FwgguorSanford Medical Center [facility] 4100 Work Phone: Fall risk assessmentb) One or more falls in the last tlymNT-Slonaoetblffeo-MuynvxjSouthwest [facility] 4100 Work Phone: Tobacco use status CPHSb) ShZO-Zbhfhxusvezmmn-VemtlopSheltering Arms Hospital 4100 Work Phone: BNPon 21-92-4144Jmbexuddxfe peptide B (Bld) [Mass/Vol] 182.0 pg/mLNormal<=900.0[facility] Medical CenterComment on above:Performed By: #### HSTROPN #### [facility] [address] [place] [address] Dr. Kulwant DICK ADMITon 92-26-3922ZF [Catalytic activity/Vol]86 U/L Mnrthx52-971NgkUpper Valley Medical CenterComment on above:Performed By: #### LACT #### [facility] [address] [place] [address] Dr. Kulwant Patton.MB [Mass/Vol]0.84 ng/mLNormal<=3.60[facility] Comment on above:Performed By: #### LACT #### [facility] [address] [place] [address] Dr. Kulwant LockwoodTROP4.6 pg/mLNormal4.0-76.1[facility] Medical CenterComment on above:Result Comment: CUT-OFF POINTS HAVE BEEN ESTABLISHED BASED ON THE FOURTH UNIVERSAL DEFINITIONS OF MYOCARDIAL INFARCTION. THE UPPER REFERENCE LIMIT (URL) OF TROPONIN, DEFINED THE 99TH PERCENTILE OF cTnI DISTRIBUTION IN A REFERENCE POPULATION, HAS BEEN CONFIRMED THE DECISION THRESHOLD FOR HI DIAGNOSIS.Performed By: #### LACT #### [facility] [address] [place] [address] Dr. Kulwant PinedaO52 ng/tKCyxqyx34-16ZdkUpper Valley Medical CenterComment on above: Performed By: #### LACT #### [facility] [address] [place] [address] AUTO DIFFon 91-96-8057JFUB #0.1 103/ulNormal0.0-0.1[facility] Medical CenterComment on above:Performed By: #### LACT #### [facility] [address] [place] [address] Dr. Kulwant Woodsophils/100 WBC (Bld)0.5 %Normal0.2-2.0[facility] Comment on above:Performed By: #### LACT #### [facility] [address] [place] [address] Dr. Kulwant Radford #0.2 103/ulNormal0.0-0.7The [facility] CenterComment on above: Performed By: #### LACT #### [facility] [address] [place] [address] Dr. Kulwant Sellersosinophils/100 WBC (Bld)2.6 %Normal0.9-7.0The [facility] Comment on above:Performed By: #### LACT #### [facility] [address] [place] [address] Dr. Kulwant Sellersrythrocyte distribution width (RBC) [Ratio]15.0 %Dorcgn82.0-15.0 The [facility] CenterComment on above:Performed By: #### LACT #### [facility] [address] [place] [address] Dr. Kulwant BrennanHematocrit (Bld) [Volume fraction]42.3 %Dbdqwn93.0-54.0The [facility] CenterComment on above:Performed By: #### LACT #### [facility] [address] [place] [address] Dr. Kulwant BrennanHemoglobin (Bld) [Mass/Vol]14.0 g/fBHunwpo42.0-18.0The [facility] CenterComment on above:Performed By: #### LACT #### [facility] [address] [place] [address] Dr. Kulwant Coronado #0.10 10e3/ulCritically high0.00-0.03The [facility] Comment on above:Performed By: #### LACT #### [facility] [address] [place] [address] Dr. Kulwant Coronado %1.1 %Critically high0.0-0.5The [facility] CenterComment on above:Performed By: #### LACT #### [facility] [address] [place] [address] Dr. Kulwant Griffith #2.7 103/ulNormal1.2-3.8The [facility] CenterComment on above:Performed By: #### LACT #### [facility] [address] [place] [address] Dr. Kulwant Hallmphocytes/100 WBC (Bld)29.1 %Hpqqqp67.5-60.0The [facility] CenterComment on above:Performed By: #### LACT #### [facility] [address] [place] [address] Dr. Kulwant KaplanUAL DIFF REQNONormalThe [facility] CenterComment on above: Performed By: #### LACT #### [facility] [address] [place] [address] Dr. Kulwant Hagan (RBC) [Entitic mass]27.0 cwRpwoif05.9-34.0The [facility] CenterComment on above:Performed By: #### LACT #### [facility] [address] [place] [address] Dr. Kulwant Wilkinson (RBC) [Mass/Vol]33.1 g/mIOeezds88.9-35.2The [facility] CenterComment on above:Performed By: #### LACT #### [facility] [address] [place] [address] Dr. Kulwant Foley (RBC) [Entitic vol]81.5 nDByzyuy63.0-94.0The [facility] CenterComment on above:Performed By: #### LACT #### [facility] [address] [place] [address] Dr. Kulwant Aguirre #1.0 103/ulCritically high0.3-0.8The [facility] Comment on above:Performed By: #### LACT #### [facility] [address] [place] [address] Dr. Kulwant Malcolmocytes/100 WBC (Bld)10.5 %Normal1.7-12.0The [facility] Comment on above:Performed By: #### LACT #### [facility] [address] [place] [address] Dr. Kulwant Mena #5.1 103/ulNormal1.4-6.5The [facility] CenterComment on above:Performed By: #### LACT #### [facility] [address] [place] [address] Dr. Kulwant Plasenciautrophils/100 WBC (Bld)56.2 %Agnixv05.0-75.0The [facility] CenterComment on above:Performed By: #### LACT #### [facility] [address] [place] [address] Dr. Kulwant Díazlet mean volume (Bld) [Entitic vol]10.0 fLNormal9.5-13.5The [facility] CenterComment on above:Performed By: #### LACT #### [facility] [address] [place] [address] Dr. Kulwant BrennanPLT251 103/qjUflyht314-182Tgu [facility] CenterComment on above: Performed By: #### LACT #### [facility] [address] [place] [address] Dr. Kulwant BrennanRBC5.19 106/ulNormal4.70-6.10The [facility] CenterComment on above:Performed By: #### LACT #### [facility] [address] [place] [address] Dr. Blum ChangWBC9.1 103/ulNormal4.0-11.0The [facility] CenterComment on above: Performed By: #### LACT #### [facility] [address] [place] [address] Dr. Kulwant BrennanCT STROKE HEAD WOon 36-30-3497XQ STROKE HEAD WOEXAMINATION: CT STROKE HEAD WO [...] Electronically authenticated by: CONNER TANG Date: 2022-06-04 07:16NoMartin Memorial HospitalCovid-19 PCR (CVDTBH)on 50-58-0997WZMT-CoV-2 (COVID-19) RNA MIKE+probe Ql (Unsp spec)Not detectedNormalNOT DETECTEDThe [facility] Comment on above:Result Comment: When diagnostic testing [...] for this test is supported by the [employer] Inspector of Health and Human Service's declaration that [...] longer be used).Performed By: #### HSTROPN #### [facility] [address] [place] [address] Dr. Kulwant Dykeson 54-46-2921A-DIMER0.38 mg/L FEUNormal<=0.59The [facility] on above:Performed By: #### DDIM #### [facility] [address] [place] [address] Dr. Kulwant [facility] on above:Result Comment: Increases in D-Dimer [...] generalized hospitalization. Performed By: #### DDIM #### [facility] [address] [place] [address] Dr. Kulwant BrennanPROSophia 14(COMP METB)on 05-84-5859Ejyhwfd [Mass/Vol]4.1 g/dLNormal 3.4-5.0The [facility] on above:Performed By: #### HSTROPN #### [facility] [address] [address] [address] Kulwant BrennanAlbumin/Globulin [Mass ratio]1.1 {ratio}NormalThe [facility] CenterComment on above:Performed By: #### HSTROPN #### [facility] [address] [address] [address] Kulwant MedinaP [Catalytic activity/Vol]78 U/JUnbwpo06-872Qnl [facility] CenterComment on above:Performed By: #### HSTROPN #### [facility] [address] [address] [address] Kulwant MedinaT [Catalytic activity/Vol]26 U/YPaeuoi67-64Oqb [facility] CenterComment on above:Performed By: #### HSTROPN #### [facility] [address] [address] [address] Kulwant Cardozaon gap [Moles/Vol]16.3 mmol/LNormalThe [facility] Comment on above:Performed By: #### HSTROPN #### [facility] [address] [address] [address] Kulwant BrennanAST [Catalytic activity/Vol]18 U/EZpjtrs54-59Lsf [facility] CenterComment on above:Performed By: #### HSTROPN #### [facility] [address] [address] [address] Kulwant BrennanBilirubin [Mass/Vol]0.4 mg/dLNormal0.2-1.0The [facility] Comment on above:Performed By: #### HSTROPN #### [facility] [address] [address] [address] Kulwant BrennanCalcium [Mass/Vol]8.4 mg/dLCritically low8.5-10.1The [facility] CenterComment on above:Performed By: #### HSTROPN #### [facility] [address] [address] [address] Kulwant BrennanChloride [Moles/Vol]104 mmol/RZjbrpt38-382Tmi [facility] Comment on above:Performed By: #### HSTROPN #### [facility] [address] [address] [address] Kulwant BrennanCO2 [Moles/Vol]24.8 mmol/MZjbqsc19.0-32.0The [facility] Comment on above:Performed By: #### HSTROPN #### [facility] [address] [address] [address] Kulwant BrennanCreatinine [Mass/Vol]1.52 mg/dLCritically high0.70-1.30The [facility] CenterComment on above:Performed By: #### HSTROPN #### [facility] [address] [address] [address] Blum ChangEGFR-AF JBNXTJIO80 mL/min/1.66s4Cladsznyuv low>=60The [facility] CenterComment on above:Performed By: #### HSTROPN #### [facility] [address] [address] [address] Kulwant SellersGFR-NON AF PGQUBYNT37 mL/min/1.50g1Pxdeouzuqc low>=60The [facility] CenterComment on above:Performed By: #### HSTROPN #### [facility] [address] [address] [address] Kulwant BrennanGlobulin (S) [Mass/Vol]3.6 g/dLNormalThe [facility] CenterComment on above:Performed By: #### HSTROPN #### [facility] [address] [address] [address] Kulwant BrennanGlucose [Mass/Vol]102 mg/sHRexbcl62-088TdyUpper Valley Medical Center Comment on above:Performed By: #### HSTROPN #### [facility] [address] [address] [address] Kulwant BrennanPotassium [Moles/Vol]4.1 mmol/LNormal3.5-5.1The [facility] Comment on above:Performed By: #### HSTROPN #### [facility] [address] [address] [address] Kulwant BrennanProtein [Mass/Vol]7.7 g/dLNormal6.4-8.2The [facility] Comment on above:Performed By: #### HSTROPN #### [facility] [address] [address] [address] Kulwant Seoum [Moles/Vol]141 mmol/CNxszdc544-016Gtn [facility] Comment on above:Performed By: #### HSTROPN #### [facility] [address] [address] [address] Kulwant Scott nitrogen [Mass/Vol]30.0 mg/dLCritically high7.0-18.0[facility] CenterComment on above:Performed By: #### HSTROPN #### [facility] [address] [address] [address] Kulwant Scott nitrogen/Creatinine [Mass ratio]19.7 mg/mgNoalThWestern Reserve HospitalComment on above:Performed By: #### HSTROPN #### [facility] [address] [address] [address] Kulwant YepezIMEon 67-89-7566BVK Coag (PPP) [Relative time]0.99 {INR} NormalUpper Valley Medical CenterComment on above:Performed By: #### PTT, PT ####[facility] [address] [address]Dr. Kulwant Guidry GUIDELINESSEE BELOWBrecksville VA / Crille HospitalComment on above: Result Comment: DESIRED INR: 2.0 - 3.0 CONDITIONS NOT LISTED BELOW 2.5 - 3.5 FOR PROSTHETIC HEART VALVE REPLACEMENT 2.5 - 3.5 RECURRENT THROMBOSISPerformed By: #### PTT, PT ####[facility] [address] [address]Dr. Kulwant Soler Coag (PPP) [Time]10.5 sNormal9.0-11.6The [facility] CenterComment on above:Performed By: #### PTT, PT ####[facility] [address] [address]Dr. Kulwant Avelar 34-40-7010wWQN Coag (Bld) [Time]30.4 iZvhouo96.3-36.2The [facility] Comment on above:Performed By: #### PTT, PT ####[facility] [address] [address]Dr. Kulwant Paiz, HIGH SENSITIVITYon 03-46-3384BSGJON2.5 pg/mLNormal4.0-76.1The [facility] CenterComment on above: Result Comment: CUT-OFF POINTS HAVE BEEN ESTABLISHED BASED ON THE FOURTH UNIVERSAL DEFINITIONS OF MYOCARDIAL INFARCTION. THE UPPER REFERENCE LIMIT (URL) OF TROPONIN, DEFINED THE 99TH PERCENTILE OF cTnI DISTRIBUTION IN A REFERENCE POPULATION, HAS BEEN CONFIRMED THE DECISION THRESHOLD FOR HI DIAGNOSIS.Performed By: #### HSTROPN ####[facility] [address] [address]DrAmarjit BrennanHSTROP4.3 pg/mLNormal 4.0-76.1The [facility] CenterComment on above:Result Comment: CUT-OFF POINTS HAVE BEEN ESTABLISHED BASED ON THE FOURTH UNIVERSAL DEFINITIONS OF MYOCARDIAL INFARCTION. THE UPPER REFERENCE LIMIT (URL) OF TROPONIN, DEFINED THE 99TH PERCENTILE OF cTnI DISTRIBUTION IN A REFERENCE POPULATION, HAS BEEN CONFIRMED THE DECISION THRESHOLD FOR HI DIAGNOSIS.Performed By: #### HSTROPN #### [facility] [address] [place] [address] Dr. Kulwant Reardon 12-08-6100FMG4.572 uIU/mLNormal0.358-3.740The [facility] CenterComment on above:Performed By: #### LACT #### [facility] [address] [place] [address] Dr. Kulwant BrennanXR CHEST 1 Von 66-88-0733ZM CHEST 1 VEXAM: XR CHEST 1 V [...] Electronically authenticated by: FLORENTIN PALMA Date: 2022-06-04 04:40[facility] HospitalXR CHEST 2 Von 74-14-3960BZ CHEST 2 VEXAMINATION: XR CHEST 2 V, [...] Electronically authenticated by: NICOLE CASAREZ Date: 2022-06-04 16:28[facility] HospitalXR Hand Complete Left*on 68-32-0249ET Hand Complete Left* FINDINGS: Moderate to severe [...] signed by Chaz Moreau on 04/17/2022 1415NormalNorthern Methodist North Hospital SpecialistECHO LIMITED STUDYon 87-50-9163ZWUM LIMITED STUDYPatient: YOLI ANTUNEZ. Exam Date: 03/22/2022 : 1955 Gender:M Ordering : [facility] Admission #: [id number] Family : Order #: [id number] CLICK HERE TO VIEW EXAM ECHOCARDIOGRAM REPORT [...] by: Mono Christie M.D. on 03/22/2022 at 20:31[facility] HospitalXR Abdomen Single View (KUB)*on 25-56-3957IP Abdomen Single View (KUB)* FINDINGS: Moderate volume [...] signed by Chaz Moreau on 03/21/2022 0944NormalNorthern Methodist North Hospital SpecialistAMYLASEon 80-30-0283Fbobsyn [Catalytic activity/Vol]58 U/LXuzudr03-657Aav [facility] CenterComment on above:Performed By: #### LIPYAHIR Levi, CMP #### [facility] [address] [address] [address] AUTO DIFFon 68-75-0804VDHL #0.1 103/ulNormal0.0-0.1The [facility] CenterComment on above:Performed By: #### LACT #### [facility] [address] [address] [address] Kulwant BrennanBasophils/100 WBC (Bld)0.8 %Normal0.2-2.0[facility] Comment on above:Performed By: #### LACT #### [facility] [address] [address] [address] Kulwant Radford #0.2 103/ulNormal0.0-0.7The [facility] CenterComment on above: Performed By: #### LACT #### [facility] [address] [address] [address] Kulwant Sellersosinophils/100 WBC (Bld)2.3 %Normal0.9-7.0[facility] Comment on above:Performed By: #### LACT #### [facility] [address] [address] [address] Kulwant Sellersrythrocyte distribution width (RBC) [Ratio]14.6 %Nnnheq02.0-15.0 [facility] CenterComment on above:Performed By: #### LACT #### [facility] [address] [address] [address] Kulwant BrennanHematocrit (Bld) [Volume fraction]39.9 %Critically low42.0-54.0 [facility] CenterComment on above:Performed By: #### LACT #### [facility] [address] [address] [address] Kulwant BrennanHemoglobin (Bld) [Mass/Vol]12.7 g/dLCritically low14.0-18.0The [facility] CenterComment on above:Performed By: #### LACT #### [facility] [address] [place] [address] Dr. Kulwant Coronado #0.03 10e3/ulNormal0.00-0.03The [facility] CenterComment on above:Performed By: #### LACT #### [facility] [address] [place] [address] Dr. Kulwant Coronado %0.5 %Normal0.0-0.5The [facility] CenterComment on above: Performed By: #### LACT #### [facility] [address] [place] [address] Dr. Kulwant Griffith #1.9 103/ulNormal1.2-3.8The [facility] CenterComment on above:Performed By: #### LACT #### [facility] [address] [place] [address] Dr. Kulwant Méndezhocytes/100 WBC (Bld)28.3 %Jhnyrr21.5-60.0The [facility] CenterComment on above:Performed By: #### LACT #### [facility] [address] [place] [address] Dr. Kulwant KaplanUAL DIFF REQNONormalThe [facility] CenterComment on above: Performed By: #### LACT #### [facility] [address] [place] [address] Dr. Kulwant Wilkinson (RBC) [Entitic mass]27.4 cwNyirqf29.9-34.0The [facility] CenterComment on above:Performed By: #### LACT #### [facility] [address] [place] [address] Dr. Kulwant Wilkinson (RBC) [Mass/Vol]31.8 g/oKEadhwq07.9-35.2The [facility] HospitalComment on above:Performed By: #### LACT #### [facility] [address] [place] [address] Dr. Kulwant Wiliknson (RBC) [Entitic vol]86.0 eZDiblow18.0-94.0The [facility] CenterComment on above:Performed By: #### LACT #### [facility] [address] [place] [address] Dr. Kulwant Aguirre #0.7 103/ulNormal0.3-0.8The [facility] CenterComment on above:Performed By: #### LACT #### [facility] [address] [place] [address] Dr. Kulwant Malcolmocytes/100 WBC (Bld)10.4 %Normal1.7-12.0The [facility] Comment on above:Performed By: #### LACT #### [facility] [address] [place] [address] Dr. Kulwant Mena #3.8 103/ulNormal1.4-6.5The [facility] CenterComment on above:Performed By: #### LACT #### [facility] [address] [place] [address] Dr. Kulwant Plasenciautrophils/100 WBC (Bld)57.7 %Regkgv75.0-75.0The [facility] CenterComment on above:Performed By: #### LACT #### [facility] [address] [place] [address] Dr. Kulwant Hinds mean volume (Bld) [Entitic vol]9.9 fLNormal9.5-13.5The [facility] CenterComment on above:Performed By: #### LACT #### [facility] [address] [place] [address] Dr. Kulwant PriceT224 103/dvJkyaai337-921Xnd [facility] CenterComment on above: Performed By: #### LACT #### [facility] [address] [place] [address] Dr. Kulwant PrattC4.64 106/ulCritically low4.70-6.10The [facility] CenterComment on above:Performed By: #### LACT #### [facility] [address] [place] [address] Dr. Kulwant BrennanWBC6.6 103/ulNormal4.0-11.0The [facility] CenterComment on above: Performed By: #### LACT #### [facility] [address] [place] [address] Dr. Kulwant Amoson 47-40-6780Czlkcb [Catalytic activity/Vol]174.0 U/LNormal 73.0-393.0The [facility] CenterComment on above:Performed By: #### LIPA, YAHIR, CMP #### [facility] [address] [place] [address] Dr. Kulwant Lambert 14(COMP METB)on 25-82-7866Zdsydph [Mass/Vol]4.2 g/dLNormal 3.4-5.0The [facility] CenterComment on above:Performed By: #### LIPA, YAHIR, CMP #### [facility] [address] [place] [address] Dr. Kulwant BrennanAlbumin/Globulin [Mass ratio]1.0 {ratio}NormalThe [facility] CenterComment on above:Performed By: #### LIPA, YAHIR, CMP #### [facility] [address] [place] [address] Dr. Kulwant Ga [Catalytic activity/Vol]106 U/CPqyhaj13-439Iun [facility] Glenbeighment on above:Performed By: #### LIPA, YAHIR, CMP #### [facility] [address] [place] [address] Dr. Kulwant Bush [Catalytic activity/Vol]91 U/LCritically ydpw40-23Uoz [facility] CenterComment on above:Performed By: #### LIPA, YAHIR, CMP #### [facility] [address] [place] [address] Dr. Kulwant Akbar gap [Moles/Vol]13.8 mmol/LNormalThe [facility] Comment on above:Performed By: #### LIPA, YHAIR, CMP #### [facility] [address] [place] [address] Dr. Kulwant Ortiz [Catalytic activity/Vol]26 U/LTzkdwu79-37Vod [facility] CenterComment on above:Performed By: #### LIPA, YAHIR, CMP #### [facility] [address] [place] [address] Dr. Kulwant BrennanBilirubin [Mass/Vol]0.5 mg/dLNormal0.2-1.0[facility] Comment on above:Performed By: #### YAHIR GARCIA, CMP #### [facility] [address] [place] [address] Dr. Kulwant BrennanCalcium [Mass/Vol]8.3 mg/dLCritically low8.5-10.1The [facility] CenterComment on above:Performed By: #### LIPYAHIR Levi, CMP #### [facility] [address] [place] [address] Dr. Kulwant BrennanChloride [Moles/Vol]103 mmol/FMplgbf71-504AiqUpper Valley Medical Center Comment on above:Performed By: #### YAHIR GARCIA, CMP #### [facility] [address] [place] [address] Dr. Kulwant BrennanCO2 [Moles/Vol]26.5 mmol/EIldlzv00.0-32.0[facility] Comment on above:Performed By: #### YAHIR GARCIA, CMP #### [facility] [address] [place] [address] Dr. Kulwant BrennanCreatinine [Mass/Vol]1.37 mg/dLCritically high0.70-1.30The [facility] CenterComment on above:Performed By: #### YAHIR GARCIA, CMP #### [facility] [address] [place] [address] Dr. Blum ChangEGFR-AF CITIZEN OF [place]>60Normal>=60The [facility] CenterComment on above:Performed By: #### YAHIR GARCIA, CMP #### [facility] [facility] [address] [place] [address] Dr. Kulwant SellersGFR-NON AF GXJEBGKU99 mL/min/1.62f4Xvsjwxrubw low>=60The [facility] CenterComment on above:Performed By: #### YAHIR GARCIA, CMP #### [facility] [address] [place] [address] Dr. Kulwant BrennanGlobulin (S) [Mass/Vol]4.1 g/dLNoMartin Memorial HospitalComment on above:Performed By: #### YAHIR GARCIA, CMP #### [facility] [address] [address] [address] Kulwant BrennanGlucose [Mass/Vol]96 mg/jIVrdpvm87-533NfsUpper Valley Medical Center Comment on above:Performed By: #### YAHIR GARCIA, CMP #### [facility] [address] [place] [address] Dr. Kulwant BrennanPotassium [Moles/Vol]4.3 mmol/LNormal3.5-5.1The [facility] Comment on above:Performed By: #### YAHIR GARCIA, CMP #### [facility] [address] [place] [address] Dr. Kulwant BrennanProtein [Mass/Vol]8.3 g/dLCritically high6.4-8.2The [facility] CenterComment on above:Performed By: #### YAHIR GARCIA, CMP #### [facility] [address] [place] [address] Dr. Kulwant BrennanSodium [Moles/Vol]139 mmol/MLijanw051-814Saw [facility] Comment on above:Performed By: #### YAHIR GARCIA, CMP #### [facility] [address] [place] [address] Dr. Kulwant BrennanUrea nitrogen [Mass/Vol]27.0 mg/dLCritically high7.0-18.0The [facility] CenterComment on above:Performed By: #### YAHIR GARCIA, CMP #### [facility] [address] [place] [address] Dr. Kulwant BrennanUrea nitrogen/Creatinine [Mass ratio]19.7 mg/mgNoMartin Memorial HospitalComment on above:Performed By: #### YAHIR GARCIA, CMP #### [facility] [address] [place] [address] AUTO DIFFon [id number] #0.1 103/ulNormal0.0-0.1[facility] Medical CenterComment on above:Performed By: #### HSTROPN #### [facility] [address] [place] [address] Dr. Kulwant BrennanBasophils/100 WBC (Bld)0.5 %Normal0.2-2.0[facility] Comment on above:Performed By: #### HSTROPN #### [facility] [address] [place] [address] Dr. Kulwant Radford #0.2 103/ulNormal0.0-0.7The [facility] CenterComment on above: Performed By: #### HSTROPN #### [facility] [address] [place] [address] Dr. Kulwant Sellersosinophils/100 WBC (Bld)2.3 %Normal0.9-7.0[facility] Comment on above:Performed By: #### HSTROPN #### [facility] [address] [place] [address] Dr. Kulwant Sellersrythrocyte distribution width (RBC) [Ratio]14.6 %Avhstf59.0-15.0 [facility] CenterComment on above:Performed By: #### HSTROPN #### [facility] [address] [place] [address] Dr. Kulwant BrennanHematocrit (Bld) [Volume fraction]35.8 %Critically low42.0-54.0 The [facility] CenterComment on above:Performed By: #### HSTROPN #### [facility] [address] [place] [address] Dr. Kulwant BrennanHemoglobin (Bld) [Mass/Vol]11.4 g/dLCritically low14.0-18.0[facility] CenterComment on above:Performed By: #### HSTROPN #### [facility] [address] [place] [address] Dr. Kulwant Coronado #0.33 10e3/ulCritically high0.00-0.03[facility] Comment on above:Performed By: #### HSTROPN #### [facility] [address] [address] [address] Kulwant Coronado %3.2 %Critically high0.0-0.5The [facility] CenterComment on above:Performed By: #### HSTROPN #### [facility] [address] [address] [address] Kulwant Griffith #1.9 103/ulNormal1.2-3.8The [facility] CenterComment on above:Performed By: #### HSTROPN #### [facility] [address] [place] [address] Dr. Kulwant Méndezhocytes/100 WBC (Bld)18.3 %Critically low20.5-60.0The [facility] CenterComment on above:Performed By: #### HSTROPN #### [facility] [address] [place] [address] Dr. Kulwant KaplanUAL DIFF REQNONormalThe [facility] CenterComment on above: Performed By: #### HSTROPN #### [facility] [address] [place] [address] Dr. Kulwant Hagan (RBC) [Entitic mass]26.8 hgVaduyg02.9-34.0The [facility] CenterComment on above:Performed By: #### HSTROPN #### [facility] [address] [place] [address] Dr. Kulwant Wilkinson (RBC) [Mass/Vol]31.8 g/cLKenuka25.9-35.2The [facility] CenterComment on above:Performed By: #### HSTROPN #### [facility] [address] [place] [address] Dr. Kulwant Wilkinson (RBC) [Entitic vol]84.0 kFTwmupi99.0-94.0The [facility] CenterComment on above:Performed By: #### HSTROPN #### [facility] [address] [place] [address] Dr. Kulwant Aguirre #0.9 103/ulCritically high0.3-0.8The [facility] Comment on above:Performed By: #### HSTROPN #### [facility] [address] [place] [address] Dr. Kulwant Malcolmocytes/100 WBC (Bld)9.2 %Normal1.7-12.0[facility] Comment on above:Performed By: #### HSTROPN #### [facility] [address] [place] [address] Dr. Kulwant Mena #6.8 103/ulCritically high1.4-6.5The [facility] Comment on above:Performed By: #### HSTROPN #### [facility] [address] [place] [address] Dr. Kulwant Plasenciautrophils/100 WBC (Bld)66.5 %Xflkzc88.0-75.0The [facility] CenterComment on above:Performed By: #### HSTROPN #### [facility] [address] [place] [address] Dr. Kulwant BrennanPlatelet mean volume (Bld) [Entitic vol]10.5 fLNormal9.5-13.5The [facility] CenterComment on above:Performed By: #### HSTROPN #### [facility] [address] [place] [address] Dr. Kulwant BrennanPLT357 103/wjRscyqp968-779Itt [facility] CenterComment on above: Performed By: #### HSTROPN #### [facility] [address] [place] [address] Dr. Kulwant BrennanRBC4.26 106/ulCritically low4.70-6.10The [facility] CenterComment on above:Performed By: #### HSTROPN #### [facility] [address] [place] [address] Dr. Kulwant BrennanWBC10.2 103/ulNormal4.0-11.0The [facility] CenterComment on above:Performed By: #### HSTROPN #### [facility] [address] [place], [place] [address] Dr. Kulwant Lambert 14(COMP METB)on 78-01-5170Fhlaugf [Mass/Vol]3.3 g/dL Critically low3.4-5.0The [facility] CenterComment on above:Performed By: #### TSH, CMP ####[facility] [address] [address]Dr. Kulwant BrennanAlbumin/Globulin [Mass ratio]0.8 {ratio}NormalThe [facility] CenterComment on above:Performed By: #### TSH, CMP ####[facility] [address] [address]Dr. Kulwant BrennanALP [Catalytic activity/Vol]151 U/LCritically rrds87-352Neu [facility] CenterComment on above: Performed By: #### TSH, CMP ####[facility] [address] [place], [place] [address]Dr. Kulwant BrennanALT [Catalytic activity/Vol]118 U/L Critically mpun95-34Qez [facility] CenterComment on above:Performed By: #### TSH, CMP ####[facility] [address] [address]Dr. Kulwant BrennanAnion gap [Moles/Vol]12.3 mmol/LNormalThe [facility] Comment on above:Performed By: #### TSH, CMP ####[facility] [address] [address]Dr. Kulwant ChangAST [Catalytic activity/Vol]65 U/LCritically yhwb31-39Wtx [facility] Glen[facility]ighment on above: Performed By: #### TSH, CMP ####[facility] [address] [place], [place] [address]Dr. Kulwant ChangBilirubin [Mass/Vol]0.5 mg/dLNormal 0.2-1.0The [facility] Glenbeighment on above:Performed By: #### TSH, CMP ####[facility] [address] [place], [place] [address]Dr. Kulwant ChangCalcium [Mass/Vol]5.3 mg/dLCritically low8.5-10.1The [facility] CenterComment on above:Performed By: #### TSH, CMP ####[facility] [address] [place], [place] [address]Dr. Yilan ChangChloride [Moles/Vol]104 mmol/VTuudlt08-714Qcc [facility] CenterComment on above:Performed By: #### TSH, CMP ####[facility] [address] [place], [place] [address]Dr. Yilan ChangCO2 [Moles/Vol]26.7 mmol/LNormal 21.0-32.0The [facility] CenterComment on above:Performed By: #### TSH, CMP ####[facility] [address] [place], [place] [address]Dr. Yilan ChangCreatinine [Mass/Vol]2.08 mg/dLCritically high0.70-1.30The [facility] CenterComment on above:Performed By: #### TSH, CMP ####[facility] [address] [place], [place] [address]Dr. Yilan ChangEGFR-AF IXOSECMF66 mL/min/1.38u3Ziatcqjicz low>=60The [facility] CenterComment on above: Performed By: #### TSH, CMP ####[facility] [address] [place], [place] [address]Dr. Yilan ChangEGFR-NON AF DMVUUODC65 mL/min/1.73m2 Critically low>=60The [facility] CenterComment on above:Performed By: #### TSH, CMP ####[facility] [address] [place], [place] [address]Dr. Yilan ChangGlobulin (S) [Mass/Vol]4.1 g/dLNormalThe [facility] CenterComment on above:Performed By: #### TSH, CMP ####[facility] [address] [place], [place] [address]Dr. Yilan ChangGlucose [Mass/Vol]89 mg/dLNormal 74-106The [facility] CenterComment on above:Performed By: #### TSH, CMP ####[facility] [address] [place], [place] [address]Dr. Yilan ChangPotassium [Moles/Vol]4.0 mmol/LNormal3.5-5.1The [facility] Comment on above:Performed By: #### TSH, CMP ####[facility] [address] [address]Dr. Kulwant ChangProtein [Mass/Vol]7.4 g/dLNormal6.4-8.2The [facility] CenterComment on above:Performed By: #### TSH, CMP ####[facility] [address] [address]Dr. Kulwant ChangSodium [Moles/Vol]139 mmol/RJmmrpn372-992Ijg [facility] CenterComment on above:Performed By: #### TSH, CMP ####[facility] [address] [place], [place] [address]Dr. Kulwant ChangUrea nitrogen [Mass/Vol]28.0 mg/dLCritically high7.0-18.0The [facility] CenterComment on above:Performed By: #### TSH, CMP ####[facility] [address] [place], [place] [address]Dr. Alanalan ChangUrea nitrogen/Creatinine [Mass ratio] 13.5 mg/mgNormalThe [facility] CenterComment on above:Performed By: #### TSH, CMP ####[facility] [address] [place], [place] [address]Dr. Kulwant ChangTSHon 27-46-2441RZV55.234 uIU/mLCritically high0.358-3.740[facility] CenterComment on above:Performed By: #### TSH, CMP ####[facility] [address] [place], [place] [address]Dr. Kulwant BrennanCult, Bloodon [id number], BloodSpecimen Description .BLOOD Special Requests RT AC 6ML Culture NO GROWTH 5 DAYS Report Status FINAL 01/06/2022NormalMemorial Health System Marietta Memorial HospitalComment on above:Performed By: #### URNA, URTPRT, UMICAO, UEOS, UA #### [facility] [address] [place], [place] [id number] Greenhouse Grower: Ottoniel Rosenthal,Bloodon [id number],BloodSpecimen Description .BLOOD Special Requests LT HAND 6ML Culture NO GROWTH 5 DAYS Report Status FINAL 01/06/2022NormalMemorial Health System Marietta Memorial HospitalComment on above:Performed By: #### URNA, URTPRT, UMICAO, UEOS, UA #### [facility] [address] [place] [address] [phone] Greenhouse Grower: DIOGO Rosenthal SCREEN WITH REFLEXon [id number] ds DNA 5.8NINFRIVERSIDE BEHAVIORAL HEALTH CENTERComment on above: Reference Range: <10.0 Negative 10.0-15.0 Equivocal >15.0 Positive ARJUN Antibodies Screen0.3 U/mLNINF - 0.7 U/mLRIVERSIDE BEHAVIORAL HEALTH CENTERComascension st. j[facility] hospital on above: Reference Range: <0.7 Negative 0.7-1.0 Equivocal >1.0 Positive ARJUN Screen includes U1RNP,RNP70,Sm,Ro(SS-A),La(SS-B),CENP,Scl-70,Pippa-1 Nuclear Ab IF (S) [Titer]NegativeNEGATIVEWARREN MEMORIAL HOSPITALANA Screen w/reflexon [id number] ScreenNegativeNormalNEGMemorial Health System Marietta Memorial HospitalComment on above:Performed By: #### URNA, URTPRT, UMICAO, UEOS, UA #### [facility] [address] [place] [address] [phone] Greenhouse Grower: Adriane Rosenthal-dsDNA5.8 IU/mLNormal<10.0[facility] Memorial HospitalComment on above:Result Comment: Reference Range: <10.0 Negative 10.0-15.0 Equivocal >15.0 PositivePerformed By: #### URNA, URTPRT, UMICAO, UEOS, UA #### [facility] [address] [place] [address] [phone] Greenhouse Grower: RAMYA Rosenthal Screen0.3 U/mLNormal<0.7[facility] Memorial HospitalComment on above:Result Comment: Reference Range: <0.7 Negative 0.7-1.0 Equivocal >1.0 Positive ARJUN Screen includes U1RNP,RNP70,Sm,Ro(SS-A),La(SS-B),CENP,Scl-70,Pippa-1Performed By: #### URNA, URTPRT, UMICAO, UEOS, UA #### [facility] [address] [place] [address] Greenhouse Grower: Enmanuel Rosenthalbrandin Metabolic Panelon [id number] gap [Moles/Vol]14 mmol/L9 - 17 mmol/LBON SECOURS ShoutlyY HEALTHCalcium [Mass/Vol]6.4 mg/dLLow8.6 - 10.4 mg/dLBON SECOURS ShoutlyY HEALTHChloride [Moles/Vol]108 mmol/L High98 - 107 mmol/LBON SECOURS ShoutlyY HEALTHCO2 [Moles/Vol]25 mmol/L20 - 31 mmol/LBON [facility] ShoutlyY HEALTHCreatinine [Mass/Vol]2.5 mg/dLHigh0.7 - 1.2 mg/dL BON SECXerico TechnologiesY HEALTHGFR Exubdhns00 mL/oskEtg68 - PINF mL/minBON SECOURS ShoutlyY HEALTHGFR Non- Yrojdwqw46 mL/cceThj95 - PINF mL/minBON SECXerico TechnologiesY HEALTHGFR/1.73 sq M.predicted MDRD (S/P/Bld) [Vol rate/Area]BON SECRTF LogicComment on above:Average GFR for 60-69 years old: 85 mL/min/1.73sq m Chronic Kidney Disease: <60 mL/min/1.73sq m Kidney failure: <15 mL/min/1.73sq m eGFR calculated using average adult body mass. Additional eGFR calculator available at: http://www.[employer]/multiple_crcl_2012.htm Glucose [Mass/Vol]99 mg/dL70 - 99 mg/dLBON SECRTF LogicInterpretation and review of laboratory resultsAbnormalBON SECOURS ShoutlyY HEALTHPotassium [Moles/Vol]4.6 mmol/L3.7 - 5.3 mmol/LBON [facility] COMPANYSodium [Moles/Vol] 147 mmol/TWkqa276 - 144 mmol/LBON [facility] COMPANYUrea nitrogen (BldV) [Mass/Vol]40 mg/dLHigh8 - 23 mg/dLBON REGENCY HOSPITAL COMPANYBON [facility]ITAL COMPANYBasic Metabolic Profon 01-05-2022(cont.)NormalMemorial Health System Marietta Memorial HospitalComment on above:Result Comment: Average GFR for 60-69 years old: 85 mL/min/1.73sq m Chronic Kidney Disease: <60 mL/min/1.73sq m Kidney failure: <15 mL/min/1.73sq m eGFR calculated using average adult body mass. Additional eGFR calculator available at: http://www.[employer]/multiple_crcl_2012.htmPerformed By: #### URNA, URTPRT, UMICAO, UEOS, UA #### [facility] [facility] [address] [place] [address] Greenhouse Grower: Ronn Arias MDAnivicky gap [Moles/Vol]14 mmol/LNormal9-17[facility] HospitalComment on above:Performed By: #### URNA, URTPRT, UMICAO, UEOS, UA #### [facility] [address] [place] [address] Greenhouse Grower: RAY Rosenthalalcium [Mass/Vol]6.4 mg/dLLow8.6-10.4[facility] Memorial HospitalComment on above:Performed By: #### URNA, URTPRT, UMICAO, UEOS, UA #### [facility] [address] [place] [address] Greenhouse Grower: RAY Rosenthalhloride [Moles/Vol]108 mmol/DLsil65-086TskayMemorial Health System Marietta Memorial HospitalComment on above:Performed By: #### URNA, URTPRT, UMICAO, UEOS, UA #### [facility] [address] [place] [address] Greenhouse Grower: Ronn Arias MDCO2 [Moles/Vol]25 mmol/QUzazlp68-20MmonxMemorial Health System Marietta Memorial HospitalComment on above:Performed By: #### URNA, URTPRT, UMICAO, UEOS, UA #### [facility] [address] [place] [address] Greenhouse Grower: RAY Rosenthalreatinine [Mass/Vol]2.50 mg/dLHigh0.70-1.20 [facility] HospitalComment on above:Performed By: #### URNA, URTPRT, UMICAO, UEOS, UA #### [facility] [address] [place] [address] Greenhouse Grower: Ronn Arias MDGFR, Amer31 mL/minLow>60[facility] HospitalComment on above:Performed By: #### URNA, URTPRT, UMICAO, UEOS, UA #### [facility] [address] [place] [address] Greenhouse Grower: Ronn Arias MDGFR,non Amer26 mL/minLow>60[facility] HospitalComment on above:Performed By: #### URNA, URTPRT, UMICAO, UEOS, UA #### [facility] [address] [place] [address] Greenhouse Grower: Ronn Arias MDGlucose [Mass/Vol]99 mg/fWIbrfsn57-17Dxynh College Medical CenterComment on above:Performed By: #### URNA, URTPRT, UMICAO, UEOS, UA #### [facility] [address] [place] [address] Greenhouse Grower: Ronn Arias MDPotassium [Moles/Vol]4.6 mmol/LNormal3.7-5.3 [facility] HospitalComment on above:Performed By: #### URNA, URTPRT, UMICAO, UEOS, UA #### [facility] [address] [place] [address] Greenhouse Grower: GUILLERMO Rosenthalodium [Moles/Vol]147 mmol/IKnep414-172NteeyMemorial Health System Marietta Memorial HospitalComment on above:Performed By: #### URNA, URTPRT, UMICAO, UEOS, UA #### [facility] [address] [place] [address] Greenhouse Grower: Ronn Arias MDUrea nitrogen [Mass/Vol]40 mg/dLHigh8-23[facility] HospitalComment on above:Performed By: #### URNA, URTPRT, UMICAO, UEOS, UA #### [facility] [address] [place] [address] Greenhouse Grower: Ronn Arias MDIMMUNOFIXATION SERUM PROFILEon 01-05-2022 Pathologist Cyto stain Nom (Cvx/Vag) [ID]Reviewed by pathologist: Kailee Portillo M.D.[facility] IFX InterpIMMUNOFIXATION IS NEGATIVE FOR MONOCLONAL IMMUNOGLOBULIN.[facility] MEMORIAL HOSPITALImmunofixation,Bloodon [id number] - Interpret.IMMUNOFIXATION IS NEGATIVE FOR MONOCLONAL IMMUNOGLOBULIN.[facility] Comment on above:Performed By: #### URNA, URTPRT, UMICAO, UEOS, UA #### [facility] [address] [place] [address] Greenhouse Grower: MARQUEZ Rosenthalathologist Review:Reviewed by pathologist: Kailee Portillo M.D.[facility] Community HospitalComment on above: Performed By: #### URNA, URTPRT, UMICAO, UEOS, UA #### [facility] [address] [place] [address] Greenhouse Grower: Ever Rosenthal Metab w/rfx MGon 01-04-2022(cont.)Normal [facility] Memorial HospitalComment on above:Result Comment: Average GFR for 60-69 years old: 85 mL/min/1.73sq m Chronic Kidney Disease: <60 mL/min/1.73sq m Kidney failure: <15 mL/min/1.73sq m eGFR calculated using average adult body mass. Additional eGFR calculator available at: http://www.[employer]/multiple_crcl_2012.htmPerformed By: #### URNA, URTPRT, UMICAO, UEOS, UA #### [place] [address] Greenhouse Grower: Ronn Arias MDAnion gap [Moles/Vol]13 mmol/LNormal9-17[facility] HospitalComment on above:Performed By: #### URNA, URTPRT, UMICAO, UEOS, UA #### [place] [address] Greenhouse Grower: Ronn Arias MDCalcium [Mass/Vol]6.6 mg/dLLow8.6-10.4[facility] HospitalComment on above:Performed By: #### URNA, URTPRT, UMICAO, UEOS, UA #### [facility] [address] [place] [address] Greenhouse Grower: Ronn Arias MDChloride [Moles/Vol]107 mmol/IWhnjft93-307IyfhbMemorial Health System Marietta Memorial HospitalComment on above:Performed By: #### URNA, URTPRT, UMICAO, UEOS, UA #### [facility] [address] [place] [address] Greenhouse Grower: Ronn Arias MDCO2 [Moles/Vol]21 mmol/ONiohlg86-36YsixsMemorial Health System Marietta Memorial HospitalComment on above:Performed By: #### URNA, URTPRT, UMICAO, UEOS, UA #### [facility] [address] [place] [address] Greenhouse Grower: RAY Rosenthalreatinine [Mass/Vol]3.07 mg/dLHigh0.70-1.20 [facility] HospitalComment on above:Performed By: #### URNA, URTPRT, UMICAO, UEOS, UA #### [facility] [address] [place] [address] Greenhouse Grower: Ronn Arias MDGFR, Amer25 mL/minLow>60[facility] HospitalComment on above:Performed By: #### URNA, URTPRT, UMICAO, UEOS, UA #### [facility] [address] [place] [address] Greenhouse Grower: Ronn Arias MDGFR,non Amer20 mL/minLow>60[facility] HospitalComment on above:Performed By: #### URNA, URTPRT, UMICAO, UEOS, UA #### [facility] [address] [place] [address] Greenhouse Grower: Ronn Arias MDGlucose [Mass/Vol]95 mg/yOYbthzl90-90BdcniDavies campusComment on above:Performed By: #### URNA, URTPRT, UMICAO, UEOS, UA #### [facility] [address] [place] [address] Greenhouse Grower: MARQUEZ Rosenthalotassium [Moles/Vol]4.3 mmol/LNormal3.7-5.3 [facility] HospitalComment on above:Performed By: #### URNA, URTPRT, UMICAO, UEOS, UA #### [facility] [address] [place] [address] Greenhouse Grower: GUILLERMO Rosenthalodium [Moles/Vol]141 mmol/JAftyji877-010UtenzMemorial Health System Marietta Memorial HospitalComment on above:Performed By: #### URNA, URTPRT, UMICAO, UEOS, UA #### [facility] [address] [place] [address] Greenhouse Grower: Ronn Arias MDUrea nitrogen [Mass/Vol]54 mg/dLHigh8-23[facility] HospitalComment on above:Performed By: #### URNA, URTPRT, UMICAO, UEOS, UA #### [facility] [address] [place], [place] [id number] Greenhouse Grower: Ronn Arias MDDanbury Hospital Metabolic Panel w/ Reflex to MGon [id number] gap [Moles/Vol]13 mmol/L9 - 17 mmol/LBON SECXerico TechnologiesY HEALTH Calcium [Mass/Vol]6.6 mg/dLLow8.6 - 10.4 mg/dLBON SECOURS MERCY HEALTHChloride [Moles/Vol]107 mmol/L98 - 107 mmol/LBON SECOURS MERCY HEALTHCO2 [Moles/Vol]21 mmol/L20 - 31 mmol/LBON [facility] ShoutlyY Internet PawnCreatinine [Mass/Vol]3.07 mg/dLHigh 0.7 - 1.2 mg/dLBON SECOURS ShoutlyY HEALTHGFR Cleumcbw12 mL/djoDuz19 - PINF mL/minBON SECXerico TechnologiesY HEALTHGFR Non- Mrjfhspv01 mL/euxRvm13 - PINF mL/minBON SECNexx Studio MERCY HEALTHGFR/1.73 sq M.predicted MDRD (S/P/Bld) [Vol rate/Area]BON SECRTF LogicComment on above:Average GFR for 60-69 years old: 85 mL/min/1.73sq m Chronic Kidney Disease: <60 mL/min/1.73sq m Kidney failure: <15 mL/min/1.73sq m eGFR calculated using average adult body mass. Additional eGFR calculator available at: http://www.[employer]/multiple_crcl_2012.htm Glucose [Mass/Vol]95 mg/dL70 - 99 mg/dLBON SECXerico TechnologiesY HEALTHInterpretation and review of laboratory resultsAbnormalBON REGENCY HOSPITAL COMPANYPotassium [Moles/Vol]4.3 mmol/L3.7 - 5.3 mmol/LBON [facility] COMPANYSodium [Moles/Vol] 141 mmol/L135 - 144 mmol/LBON [facility]ITAL COMPANYUrea nitrogen (BldV) [Mass/Vol]54 mg/dLHigh8 - 23 mg/dLBON SECNEWARK HOSPITALBON REGENCY HOSPITAL COMPANYCBC with Auto Differentialon [id number] Eos #0.19[facility] COMPANYAbsolute Immature Granulocyte0.09[facility] COMPANYAbsolute Lymph # 1.34[facility] COMPANYAbsolute [place] #1.01[facility] COMPANYBasophils AbsoluteBON REGENCY HOSPITAL COMPANYBasophils/100 WBC (Bld)0 %0 - 2 %[facility] CENTEREosinophils/100 WBC (Bld)2 %1 - 4 %[facility] Hematocrit (Bld) [Volume fraction]28.4 %Low40.7 - 50.3 %[facility] Hemoglobin (Bld) [Mass/Vol]9.3 g/dLLow13 - 17 g/dLBON [facility] COMPANY Immature granulocytes/100 WBC (Bld)1 %Trzk4OVHRIVERSIDE BEHAVIORAL HEALTH CENTER Interpretation and review of laboratory resultsAbnormalRIVERSIDE BEHAVIORAL HEALTH CENTER Lymphocytes/100 WBC (Bld)11 %Low24 - 43 %[facility] CENTERH (RBC) [Entitic mass]27.4 pg25.2 - 33.5 pgSENTARA RMH MEDICAL CENTERHC (RBC) [Mass/Vol] 32.7 g/dL28.4 - 34.8 g/dLBON [facility]OSPITALV (RBC) [Entitic vol]83.8 fL 82.6 - 102.9 fLRIVERSIDE BEHAVIORAL HEALTH CENTERMonocytes/100 WBC (Bld)8 %3 - 12 %[facility]AVIOR[facility] HEALTH CENTERNRBC Automated0.00.0 per 100 WBCRIVERSIDE BEHAVIORAL HEALTH CENTER Platelet distribution width (Bld) [Ratio]14.3 %11.8 - 14.4 %[facility] HEALTHPlatelet mean volume (Bld) [Entitic vol]10.6 fL8.1 - 13.5 fLBON [facility] HEALTHPlatelets (Bld) [#/Vol]177 10*3/uLBON [facility] HEALTHRBC (Bld) [#/Vol]3.39 10*6/uLLow4.21 - 5.77 m/uLBON [facility] COMPANYSegmented neutrophils/100 WBC (Bld)78 %High36 - 65 %BON [facility] HEALTHSegs Absolute 9.54HighBON REGENCY HOSPITAL COMPANYWBC (Bld) [#/Vol]12.2 10*3/uLHighBON AV[facility]ACE HOSPITALCBC with Diffon [id number]. Basophil<0.03 Normal0.00-0.20[facility] HospitalComment on above:Performed By: #### URNA, URTPRT, UMICAO, UEOS, UA #### [employer] [address] [place] [address] Greenhouse Grower: Mak Rosenthal.Imm.Granulocyte0.09 k/uLNormal0.00-0.30[facility] HospitalComment on above:Performed By: #### URNA, URTPRT, UMICAO, UEOS, UA #### [employer] [facility] [address] [place] [address] Greenhouse Grower: Mak Rosenthal.Neutrophil (Seg)9.54 k/uLHigh1.50-8.10[facility] HospitalComment on above:Performed By: #### URNA, URTPRT, UMICAO, UEOS, UA #### [employer] [facility] [place] [address] Greenhouse Grower: Ronn Arias MDBasophils/100 WBC (Bld)0 %Normal0-2MercRobert F. Kennedy Medical CenterComment on above:Performed By: #### URNA, URTPRT, UMICAO, UEOS, UA #### [employer] [facility] [address] [place] [address] Greenhouse Grower: PRANAY Rosenthalosinophils (Bld) [#/Vol]0.19 10*3/uLNormal 0.00-0.44[facility] HospitalComment on above:Performed By: #### URNA, URTPRT, UMICAO, UEOS, UA #### [facility] [address] [place] [address] Greenhouse Grower: PRANAY Rosenthalosinophils/100 WBC (Bld)2 %Normal1-4[facility] HospitalComment on above:Performed By: #### URNA, URTPRT, UMICAO, UEOS, UA #### [facility] [address] [place] [address] Greenhouse Grower: Mt Rosenthalmature granulocytes/100 WBC (Bld)1 %Cglm1EoxxyMemorial Health System Marietta Memorial HospitalComment on above:Performed By: #### URNA, URTPRT, UMICAO, UEOS, UA #### [facility] [address] [place] [address] Greenhouse Grower: Shelia Rosenthalhocytes (Bld) [#/Vol]1.34 10*3/uLNormal 1.10-3.70[facility] HospitalComment on above:Performed By: #### URNA, URTPRT, UMICAO, UEOS, UA #### [facility] [address] [place] [address] Greenhouse Grower: Arias Rosenthalmphocytes/100 WBC (Bld)11 %Lua92-44SmqmyMemorial Health System Marietta Memorial HospitalComment on above:Performed By: #### URNA, URTPRT, UMICAO, UEOS, UA #### [facility] [address] [place] [address] Greenhouse Grower: FRANKIE Rosenthalonocytes (Bld) [#/Vol]1.01 10*3/uLNormal 0.10-1.20[facility] HospitalComment on above:Performed By: #### URNA, URTPRT, UMICAO, UEOS, UA #### [facility] [address] [place] [address] Greenhouse Grower: FRANKIE Rosenthalonocytes/100 WBC (Bld)8 %Normal3-12[facility] HospitalComment on above:Performed By: #### URNA, URTPRT, UMICAO, UEOS, UA #### [facility] [address] [place] [address] Greenhouse Grower: Ronn Arias MDNeutrophil (Seg)78 %Fnok56-74SjfstMemorial Health System Marietta Memorial HospitalComment on above:Performed By: #### URNA, URTPRT, UMICAO, UEOS, UA #### [facility] [address] [place] [address] Greenhouse Grower: Ronn Arias MDErythrocyte distribution width (RBC) [Ratio]14.3 %Qpxydz90.8-14.4[facility] HospitalComment on above:Performed By: #### URNA, URTPRT, UMICAO, UEOS, UA #### [facility] [address] [place] [address] Greenhouse Grower: Ronn Arias MDHematocrit (Bld) [Volume fraction]28.4 %Low 40.7-50.3[facility] College Medical CenterComment on above:Performed By: #### URNA, URTPRT, UMICAO, UEOS, UA #### [facility] [address] [place] [address] Greenhouse Grower: Ronn Arias MDHemoglobin (Bld) [Mass/Vol]9.3 g/dLLow13.0-17.0 [facility] HospitalComment on above:Performed By: #### URNA, URTPRT, UMICAO, UEOS, UA #### [facility] [address] [place] [address] Greenhouse Grower: FRANKIE RosenthalCH (RBC) [Entitic mass]27.4 ebEbvdzg75.2-33.5 [facility] HospitalComment on above:Performed By: #### URNA, URTPRT, UMICAO, UEOS, UA #### [facility] [address] [place] [address] Greenhouse Grower: WILBERT RosenthalC (RBC) [Mass/Vol]32.7 g/iKDqrdao52.4-34.8 [facility] HospitalComment on above:Performed By: #### URNA, URTPRT, UMICAO, UEOS, UA #### [facility] [address] [place] [address] Greenhouse Grower: SHARITA Rosenthal (RBC) [Entitic vol]83.8 hEBwkjdf16.6-102.9 [facility] HospitalComment on above:Performed By: #### URNA, URTPRT, UMICAO, UEOS, UA #### [facility] [address] [place] [address] Greenhouse Grower: Ronn Arias MDNRBC Automated0.0 per 100 WBCNormal0.0[facility] HospitalComment on above:Performed By: #### URNA, URTPRT, UMICAO, UEOS, UA #### [facility] [address] [place] [address] Greenhouse Grower: Kaila Rosenthaltelet mean volume (Bld) [Entitic vol]10.6 fL Normal8.1-13.5[facility] HospitalComment on above:Performed By: #### URNA, URTPRT, UMICAO, UEOS, UA #### [facility] [address] [place] [address] Greenhouse Grower: Leslie Rosenthal (Bld) [#/Vol]177 10*3/eYPsgrrv609-331 [facility] HospitalComment on above:Performed By: #### URNA, URTPRT, UMICAO, UEOS, UA #### [facility] [address] [place] [address] Greenhouse Grower: STAN Rosenthal (Bld) [#/Vol]3.39 10*6/uLLow4.21-5.77[facility] HospitalComment on above:Performed By: #### URNA, URTPRT, UMICAO, UEOS, UA #### [facility] [address] [place] [address] Greenhouse Grower: RAISA Rosenthal (d) [#/Vol]12.2 10*3/uLHigh3.5-11.3MDavies campusComment on above:Performed By: #### URNA, URTPRT, UMICAO, UEOS, UA #### [facility] [address] [place] [address] Greenhouse Grower: Ever Rosenthal Metab w/rfx MGon 01-03-2022(cont.)Normal [facility] HospitalComment on above:Result Comment: Average GFR for 60-69 years old: 85 mL/min/1.73sq m Chronic Kidney Disease: <60 mL/min/1.73sq m Kidney failure: <15 mL/min/1.73sq m eGFR calculated using average adult body mass. Additional eGFR calculator available at: http://www.[employer].Exinda/multiple_crcl_2012.htmPerformed By: #### LACDS #### [facility] [address] [place] [address] Greenhouse Grower: Ronn Madoff, MDAnion gap [Moles/Vol]16 mmol/LNormal9-17[facility] HospitalComment on above:Performed By: #### LACDS #### [facility] [address] [place] [address] Greenhouse Grower: Ronn Arias MDCalcium [Mass/Vol]6.9 mg/dLLow8.6-10.4[facility] HospitalComment on above:Performed By: #### LACDS #### [facility] [address] [place] [address] Greenhouse Grower: Ronn Arias MDChloride [Moles/Vol]106 mmol/FVlzxmr15-788KurnnMemorial Health System Marietta Memorial HospitalComment on above:Performed By: #### LACDS #### [address] [address] Greenhouse Grower: Ronn Arias MDCO2 [Moles/Vol]16 mmol/PHgl80-02KzsteMemorial Health System Marietta Memorial HospitalComment on above:Performed By: #### LACDS #### [address] [address] Greenhouse Grower: RAY Rosenthalreatinine [Mass/Vol]3.44 mg/dLHigh0.70-1.20 [facility] HospitalComment on above:Performed By: #### LACDS #### [address] [address] Greenhouse Grower: MERCDEES Rosenthal, Amer22 mL/minLow>60[facility] HospitalComment on above:Performed By: #### LACDS #### [facility] [address] [place] [address] Greenhouse Grower: MERCEDES Rosenthal,non Amer18 mL/minLow>60[facility] HospitalComment on above:Performed By: #### LACDS #### [facility] [address] [place] [address] Greenhouse Grower: Ronn Arias MDGlucose [Mass/Vol]138 mg/lNUaea22-74RrvqvDavies campusComment on above:Performed By: #### LACDS #### [facility] [address] [place] [address] Greenhouse Grower: MARQUEZ Rosenthalotassium [Moles/Vol]4.8 mmol/LNormal3.7-5.3 [facility] HospitalComment on above:Performed By: #### LACDS #### [facility] [address] [place] [address] Greenhouse Grower: GUILLERMO Rosenthalodium [Moles/Vol]138 mmol/AKnxruw649-566TvqjcMemorial Health System Marietta Memorial HospitalComment on above:Performed By: #### LACDS #### [facility] [address] [place] [address] Greenhouse Grower: Ronn Arias MDUrea nitrogen [Mass/Vol]53 mg/dLHigh8-23[facility] HospitalComment on above:Performed By: #### LACDS #### [facility] [address] [place] [address] Greenhouse Grower: Ronn Arias MDBasi Metabolic Panel w/ Reflex to MGon [id number] gap [Moles/Vol]16 mmol/L9 - 17 mmol/LBON [facility]OS[facility]ITALY HEALTH Calcium [Mass/Vol]6.9 mg/dLLow8.6 - 10.4 mg/dLBON [facility] MERCY HEALTHChloride [Moles/Vol]106 mmol/L98 - 107 mmol/LBON [facility] MERCY HEALTHCO2 [Moles/Vol]16 mmol/LLow20 - 31 mmol/LBON [facility] HEALTHCreatinine [Mass/Vol]3.44 mg/dL High0.7 - 1.2 mg/dLBON [facility]RS MERCY HEALTHGFR Orjauokd33 mL/friHra81 - PINF mL/minBON [facility] MERCY HEALTHGFR Non- Zynyloge06 mL/wtjUsk05 - PINF mL/minBON [employer] CoGFR/1.73 sq M.predicted MDRD (S/P/Bld) [Vol rate/Area][facility] [employer] [facility] CAMPUSComment on above:Average GFR for 60-69 years old: 85 mL/min/1.73sq m Chronic Kidney Disease: <60 mL/min/1.73sq m Kidney failure: <15 mL/min/1.73sq m eGFR calculated using average adult body mass. Additional eGFR calculator available at: http://www.[employer]/multiple_crcl_2012.htm Glucose [Mass/Vol]138 mg/jGAxjw12 - 99 mg/dLBON [facility]ARE CORPORATIONRTF LogicPotassium [Moles/Vol]4.8 mmol/L3.7 - 5.3 mmol/LBON [facility] MEDICAL CENTERViRTUAL INTERACTiVE [facility] CAMPUSSodium [Moles/Vol] 138 mmol/L135 - 144 mmol/LBON [facility] COMPANYUrea nitrogen (BldV) [Mass/Vol]53 mg/dLHigh8 - 23 mg/dLBON [facility]ALTH[facility]ARE CORPORATIONNexx Studio PROMED[facility] MEMORIAL HOSPITALViRTUAL INTERACTiVE LCGQWZY1lf [id number] mg/rTScpjtt65-920QmsyyMemorial Health System Marietta Memorial HospitalComment on above:Performed By: #### URNA, URTPRT, UMICAO, UEOS, UA #### [facility] [address] [place] [id number] Greenhouse Grower: Ronn Arias [facility] COMPLEMENTon 44-01-4362Hdtnrtzjhc C3108 mg/dL 90 - 180 mg/dLBON REGENCY HOSPITAL COMPANYC4on 68-39-4708G172 mg/oJSbfbvn52-67UduqqMemorial Health System Marietta Memorial HospitalComment on above:Performed By: #### URNA, URTPRT, UMICAO, UEOS, UA #### [facility] [address] [place] [address] Greenhouse Grower: Ronn Arias [facility] COMPLEMENTon 77-69-9830Hujsxjksat C421 mg/dL 10 - 40 mg/dLBON [facility] MEDICAL CENTERViRTUAL INTERACTiVE [facility]USCBC with Auto Differentialon 01-03-2022 Absolute Eos #[facility] HOSPITALAbsolute Immature Granulocyte0.09B[facility] HOSPITALY HEALTHAbsolute Lymph #0.76LowBON SECOURS PROMEDICA MEMORIAL HOSPITALY HEALTHAbsolute [place] #0.39[facility] HEALTHBasophils AbsoluteB[facility] Basophils/100 WBC (Bld)0 %0 - 2 %[facility] MEDICAL CENTEREosinophils/100 WBC (Bld)0 %Low1 - 4 %[facility] HEALTH CENTERHematocrit (Bld) [Volume fraction]31.4 %Low40.7 - 50.3 %[facility] HEALTH CENTERHemoglobin (Bld) [Mass/Vol]10.3 g/dLLow 13 - 17 g/dLBON SECNEWARK HOSPITALImmature granulocytes/100 WBC (Bld)1 %High0 [facility] HEALTHInterpretation and review of laboratory resultsAbnormal [facility]IAL HOSPITALAMANDA COSHOCTON REGIONAL MEDICAL CENTERLymphocytes/100 WBC (Bld)6 %Low24 - 43 %[facility] MEDICAL CENTERH (RBC) [Entitic mass]27.5 pg25.2 - 33.5 pgBON SECCLEVELAND CLINIC CHILDREN'S HOSPITAL FOR REHABILITATIONHC (RBC) [Mass/Vol]32.8 g/dL28.4 - 34.8 g/dLBON SECCLEVELAND CLINIC CHILDREN'S HOSPITAL FOR REHABILITATIONV (RBC) [Entitic vol]83.7 fL82.6 - 102.9 fLRIVERSIDE BEHAVIORAL HEALTH CENTERMonocytes/100 WBC (Bld)3 %3 - 12 %[facility]AVIOR[facility] HEALTH CENTERNRBC Automated0.00.0 per 100 WBCBON [facility] HEALTHPlatelet distribution width (Bld) [Ratio]14.5 %High11.8 - 14.4 %[facility] HEALTHPlatelet mean volume (Bld) [Entitic vol]10.9 fL8.1 - 13.5 fLABRAZO SCOTTSDALE CAMPUS SECOURS PROMEDICA MEMORIAL HOSPITALY HEALTHPlatelets (Bld) [#/Vol]170 10*3/uLBON [facility] HEALTHRBC (Bld) [#/Vol]3.75 10*6/uLLow4.21 - 5.77 m/uLBON [facility] HEALTHRBC (Bld) [#/Vol]ANISOCYTOSIS PRESENTBON [facility] COMPANYSegmented neutrophils/100 WBC (Bld)90 %High36 - 65 %[facility] COMPANYSegs Absolute 11.26HighBON REGENCY HOSPITAL COMPANYWBC (Bld) [#/Vol]12.5 10*3/uLHighBON [facility] HOSPITALCBC with Diffon [id number]. Basophil<0.03 Normal0.00-0.20[facility] HospitalComment on above:Performed By: #### MAYCOL #### [address] [address] Greenhouse Grower: Mak Rosenthal. Eosinophil<0.14Sjfwps0.00-0.44[facility] HospitalComment on above:Performed By: #### MAYCOL #### [place] [address] Greenhouse Grower: MDAbs. GaloImm.Granulocyte0.09 k/uLNormal0.00-0.30[facility] HospitalComment on above:Performed By: #### MAYCOL #### [address] [address] Greenhouse Grower: MDAbs. GaloNeutrophil (Seg)11.26 k/uLHigh1.50-8.10[facility] HospitalComment on above:Performed By: #### MAYCOL #### [place] [address] Greenhouse Grower: Ronn Arias MDBasophils/100 WBC (Bld)0 %Normal0-2MercRobert F. Kennedy Medical CenterComment on above:Performed By: #### MAYCOL #### [address] [address] Greenhouse Grower: Ronn Arias MDEosinophils/100 WBC (Bld)0 %Low1-4[facility] HospitalComment on above:Performed By: #### MAYCOL #### [address] [address] Greenhouse Grower: Ronn Arias MDErythrocyte distribution width (RBC) [Ratio]14.5 %High11.8-14.4[facility] HospitalComment on above:Performed By: #### LACDS #### [address] [address] Greenhouse Grower: Ronn Arias MDHematocrit (Bld) [Volume fraction]31.4 %Low 40.7-50.3Mer[facility] College Medical CenterComment on above:Performed By: #### LACDS #### [address] [address] Greenhouse Grower: Ronn Arias MDHemoglobin (Bld) [Mass/Vol]10.3 g/dLLow13.0-17.0 [facility] HospitalComment on above:Performed By: #### LACDS #### [address] [address] Greenhouse Grower: Ronn Arias MDImmature granulocytes/100 WBC (Bld)1 %Jfba1XwteeMemorial Health System Marietta Memorial HospitalComment on above:Performed By: #### LACDS #### [address] [address] Greenhouse Grower: Ronn Arias MDLymphocytes (Bld) [#/Vol]0.76 10*3/uLLow 1.10-3.70[facility] HospitalComment on above:Performed By: #### LACDS #### [address] [address] Greenhouse Grower: Arias Rosenthalmphocytes/100 WBC (Bld)6 %Owj40-85ObwvtMemorial Health System Marietta Memorial HospitalComment on above:Performed By: #### LACDS #### [address] [address] Greenhouse Grower: FRANKIE RosenthalCH (RBC) [Entitic mass]27.5 xtMzaikw36.2-33.5 [facility] HospitalComment on above:Performed By: #### MAYCOL #### [address] [address] Greenhouse Grower: FRANKIE RosenthalCHC (RBC) [Mass/Vol]32.8 g/sYNizaqz98.4-34.8 [facility] HospitalComment on above:Performed By: #### MAYCOL #### [address] [address] Greenhouse Grower: FRANKIE RosenthalCV (RBC) [Entitic vol]83.7 uDUhydbe54.6-102.9 [facility] HospitalComment on above:Performed By: #### MAYCOL #### [address] [address] Greenhouse Grower: FRANKIE Rosenthalonocytes (Bld) [#/Vol]0.39 10*3/uLNormal 0.10-1.20[facility] HospitalComment on above:Performed By: #### MAYCOL #### [address] [address] Greenhouse Grower: FRANKIE Rosenthalonocytes/100 WBC (Bld)3 %Normal3-12[facility] HospitalComment on above:Performed By: #### LACDS #### [address] [address] Greenhouse Grower: Nereyda Rosenthalutrophil (Seg)90 %Soer57-71DlbcdMemorial Health System Marietta Memorial HospitalComment on above:Performed By: #### LACDS #### [address] [address] Greenhouse Grower: Ronn Arias MDNRBC Automated0.0 per 100 WBCNormal0.0[facility] HospitalComment on above:Performed By: #### LACDS #### [address] [address] Greenhouse Grower: Kaila Rosenthaltemarcelo mean volume (Bld) [Entitic vol]10.9 fL Normal8.1-13.5[facility] HospitalComment on above:Performed By: #### LACDS #### [address] [address] Greenhouse Grower: MARQUEZ Rosenthallatelets (Bld) [#/Vol]170 10*3/vEGclscp736-744 [facility] HospitalComment on above:Performed By: #### MAYCOL #### [address] [address] Greenhouse Grower: CHASIDY RosenthalBC (Bld) [#/Vol]3.75 10*6/uLLow4.21-5.77[facility] HospitalComment on above:Performed By: #### MAYCOL #### [address] [address] Greenhouse Grower: STAN Rosenthal morphology finding Nom (Bld)ANISOCYTOSIS PRESENTNormalMemorial Health System Marietta Memorial HospitalComment on above:Performed By: #### LACJONES #### [address] [address] Greenhouse Grower: LAQUITA RosenthalBC (Bld) [#/Vol]12.5 10*3/uLHigh3.5-11.3MDavies campusComment on above:Performed By: #### LACDS #### [address] [address] Greenhouse Grower: Ronn Arias MDEOSINOPHILS, URINEon 77-51-3176Jjmvuqiwem, Ur NONE SEENNONE SEENB[facility]ALTH HEALTHBON [facility]ITAL COMPANYEosinophils, Urineon 36-56-1945Folgmkptrdu, UrineNONE SEENNormalNSNMercy College Medical CenterComment on above:Performed By: #### URNA, URTPRT, UMICAO, UEOS, UA #### [facility] [address] [place], [place] [id number] Greenhouse Grower: Konrad Rosenthal Jennette + Lambdaon 30-84-0118Iavb Jennette Lt Chains4.01 mg/dLHigh0.37-1.94[facility] HospitalComment on above: Performed By: #### URNA, URTPRT, UMICAO, UEOS, UA #### [facility] [address] [place], [place] [id number] Greenhouse Grower: Konrad Rosenthal Jennette/Lambda Rat1.95Lmuv7.26-1.65[facility] HospitalComment on above:Performed By: #### URNA, URTPRT, UMICAO, UEOS, UA #### [facility] [address] [place], [place] [id number] Greenhouse Grower: Konrad Rosenthal Lambda Lt Chains2.07 mg/dLNormal0.57-2.63 [facility] HospitalComment on above:Performed By: #### URNA, URTPRT, UMICAO, UEOS, UA #### [facility] [address] [place] [id number] Greenhouse Grower: Ronn Arias MDHepatic Function Panelon 63-89-5606Rfhpssg [Mass/Vol]3.2 g/dLLow3.5 - 5.2 g/dLBON REGENCY HOSPITAL COMPANYAlbumin/Globulin [Mass ratio]0.9 {ratio}Low1 - 2.5B[facility] HOSPITAL COMPANYALP (Bld) [Catalytic activity/Vol]104 U/L40 - 129 U/LBON [facility] HEALTHALT [Catalytic activity/Vol]94 U/LHigh5 - 41 U/LBON [facility]ENC[facility] HOSPITAL COMPANYAST [Catalytic activity/Vol]49 U/LHighNINF - 40 U/LBON [facility]ITAL COMPANYBilirubin [Mass/Vol] 1.1 mg/dL0.3 - 1.2 mg/dLBON REGENCY HOSPITAL COMPANYBilirubin, Indirect0.5 mg/dL0 - 1 mg/dLBON REGENCY HOSPITAL COMPANYBilirubin.indirect [Mass/Vol]0.6 mg/dLHighNINF - 0.31 mg/dLBON [facility]Y [facility]OSPITAL COMPANYFree PSA/Total PSA [Mass fraction]6.7 g/dL6.4 - 8.3 g/dLBON REGENCY HOSPITAL COMPANYKappa/Lambda Quantitative Free Light Chains, Serumon 62-60-9522Omzm Jennette/Lambda Ratio1.19Aciy8.26 - 1.65[facility] CENTERInterpretation and review of laboratory resultsAbnormalBON REGENCY HOSPITAL COMPANYKappa Free Light Chains QNT4.01 mg/dLHigh0.37 - 1.94 mg/dLBON REGENCY HOSPITAL COMPANYLambda Free Light Chains QNT2.07 mg/dL0.57 - 2.63 mg/dLBON AVER[facility] QUEEN OF PEACE HOSPITALLactate, Sepsison 95-30-4518Ymwrmk Acid,Sep Wbld1.8 mmol/LNormal0.5-1.9[facility] HospitalComment on above: Performed By: #### LACDS #### [employer] [address] [place] [address] Greenhouse Grower: Ronn Arias MDLactic Acid, Sepsis, Whole Blood1.8 mmol/L0.5 - 1.9 mmol/LBON AVERA QUEEN OF PEACE HOSPITALLactic Acid,Sep Wbld 1.4 mmol/LNormal0.5-1.9[facility] HospitalComment on above: Performed By: #### URNA, URTPRT, UMICAO, UEOS, UA #### [employer] [address] [place] [address] Greenhouse Grower: Ronn Arias MDLactic Acid, Sepsis, Whole Blood1.4 mmol/L0.5 - 1.9 mmol/LBON AVERA QUEEN OF PEACE HOSPITALLactic Acid,Sep Wbld 1.5 mmol/LNormal0.5-1.9[facility] HospitalComment on above: Performed By: #### LACDS #### [facility] [address] [place] [address] Greenhouse Grower: Frances Rosenthalctic Acid, Sepsis, Whole Blood1.5 mmol/L0.5 - 1.9 mmol/LBON AVERA QUEEN OF PEACE HOSPITALLactic Acid,Sep Wbld 1.2 mmol/LNormal0.5-1.9[facility] HospitalComment on above: Performed By: #### LACDS #### [facility] [address] [place] [address] Greenhouse Grower: Ronn Arias MDLipaseon 65-16-3684Bjtoww [Catalytic activity/Vol]250 U/MBrwx12-54QupudMemorial Health System Marietta Memorial HospitalComment on above: Performed By: #### MAYCOL #### [facility] [address] [place] [address] Greenhouse Grower: Ronn Arias MDLipase [Catalytic activity/Vol]250 U/LHigh13 - 60 U/LBON [facility]ENC[facility] HOSPITAL COMPANYLiver Profileon 15-44-9490Kxdxvip [Mass/Vol]3.2 g/dLLow3.5-5.2Mtrinity health systemy College Medical CenterComment on above:Performed By: #### LACDS #### [facility] [address] [place] [address] Greenhouse Grower: Ronn Arias MDAlbumin/Glob Ratio0.9Low1.0-2.5[facility] Memorial HospitalComment on above:Performed By: #### LACDS #### [facility] [address] [place] [address] Greenhouse Grower: Ronn Madoff, MDAlkaline Yseu956 U/OVvbwrd35-362QgvozMemorial Health System Marietta Memorial HospitalComment on above:Performed By: #### MAYCOL #### [address] [address] Greenhouse Grower: Ronn Arias MDALT [Catalytic activity/Vol]94 U/LHigh5-41[facility] Memorial HospitalComment on above:Performed By: #### LACJONES #### [place] [address] Greenhouse Grower: Ronn Arias MDAST [Catalytic activity/Vol]49 U/LHigh<40[facility] Memorial HospitalComment on above:Performed By: #### MAYCOL #### [place] [address] Greenhouse Grower: Ronn Arias MDBilirubin [Mass/Vol]1.1 mg/dLNormal0.3-1.2MDavies campusComment on above:Performed By: #### MAYCOL #### [place] [address] Greenhouse Grower: Ronn Arias MDBilirubin, Indirect0.5 mg/dLNormal0.00-1.00[facility] Memorial HospitalComment on above:Performed By: #### MAYCOL #### [place] [address] Greenhouse Grower: Pamela Rosenthalirubin.indirect [Mass/Vol]0.6 mg/dLHigh<0.31 [facility] HospitalComment on above:Performed By: #### LACJONES #### [place] [address] Greenhouse Grower: Ronn Arias MDProtein [Mass/Vol]6.7 g/dLNormal6.4-8.3MDavies campusComment on above:Performed By: #### MAYCOL #### [address] [place] [address] Greenhouse Grower: FRANKIE Rosenthalicroscopic Urinalysison [id number] UA2 TO 5 HYALINE Reference range defined for non-centrifuged specimen.[facility] HEALTH CENTEREpithelial Cells UANoneBON REGENCY HOSPITAL COMPANYRBC, UA2 TO 5[facility] COMPANYComment on above:Reference range defined for non-centrifuged specimen.WBC, UA2 TO 5BON [facility]ITALNo Panel Informationon [id number] [facility] Interpretation and review of laboratory resultsAbnormalBON SECOURS HEALTH SYSTEMProcalcitoninon 55-28-2819Yjfyqxtczlxrm41.48 ng/mLHigh <0.09[facility] College Medical CenterComment on above:Result Comment: Suspected Sepsis: [...] entered into the Change in Procalcitonin Calculator (www.dxaoop-zlz-adeyqsbboq.com) to determine the patient's Mortality Risk Prognosis In healthy neonates, plasma Procalcitonin (PCT) concentrations increase gradually after , reaching peak values at about 24 hours of age then decrease to normal values below 0.5 ng/mL by 48-72 hours of age.Performed By: #### LACDS #### [employer] [address] [place] [address] Greenhouse Grower: Ronn Arias MDInterpretation and review of laboratory results [facility] Doctors' HospitalProcalcitonin16.48 ng/mLHighNINF - 0.09 ng/mLB[facility] REGENCY HOSPITAL COMPANYComment on above: Suspected Sepsis: <0.50 ng/mL Low [...] entered into the Change in Procalcitonin Calculator (www.vsbpdz-igy-wwvyiqvktz.Exinda) to determine the patient's Mortality Risk Prognosis In healthy neonates, plasma Procalcitonin (PCT) concentrations increase gradually after , reaching peak values at about 24 hours of age then decrease to normal values below 0.5 ng/mL by 48-72 hours of age. [facility] [employer] HEALTHProtein / creatinine ratio, urineon 01-03-2022 Creatinine, Ur84.8 mg/dL39 - 259 mg/dLBON [facility] CORPORATIONNetlift HEALTHProtein (U) [Mass/Vol]16 mg/dLB[facility] [employer] [facility]IN CAMPUSComment on above:No normal range established.Urine Total Protein Creatinine Ratio0.190 - 0.2[facility] HEALTHCARE CORPORATIONRTF LogicProtein,Tot,Eveleth Uron [id number] [Mass/Vol]84.8 mg/dLNormal 39.0-259.0MerHazel Hawkins Memorial HospitalComment on above:Performed By: #### URNA, URTPRT, UMICAO, UEOS, UA #### [employer] [address] [place] [address] Greenhouse Grower: Mendy Rosenthal Prot. Conc.16 mg/dLNormalMemorial Health System Marietta Memorial HospitalComment on above:Result Comment: No normal range established. Performed By: #### URNA, URTPRT, UMICAO, UEOS, UA #### [employer] [address] [place], [place] [id number] Greenhouse Grower: Ronn Arias MDTP/Cre Ratio0.07Rpybne2.00-0.20[facility] College Medical CenterComment on above:Performed By: #### URNA, URTPRT, UMICAO, UEOS, UA #### [employer] [facility] [place], [place] [id number] Greenhouse Grower: GUILLERMO RosenthalODIUM, URINE, RANDOMon 50-22-5224Xijtnq (U) [Moles/Vol]83 mmol/LBON REGENCY HOSPITAL COMPANYComment on above:No normal range established.SURGICAL PATHOLOGY REPORTon [id number] Pathology Report-- Diagnosis -- Gallbladder: - Chronic [...] two black choleliths, each measuring 0.5 cm. 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 tm Microscopic Description Microscopic examination performed. SURGICAL PATHOLOGY CONSULTATION Patient Name: YOLI ANTUNEZ [facility] Rec: [id number] Path Number: [id number] [facility] ANATOMIC PATHOLOGY [address] [place] [address]. [place], [place] [address] bON [facility], Random Uron [id number] (U) [Moles/Vol]83 mmol/LNormalMemorial Health System Marietta Memorial HospitalComment on above:Result Comment: No normal range established. Performed By: #### URNA, URTPRT, UMICAO, UEOS, UA #### [facility] [place] [address] Greenhouse Grower: Ronn Arias MDUrinalysison [id number] UrineNegative NEGATIVEBON [facility] HEALTHColor, UAYellowYellowB[facility] HEALTH Glucose, UrNegativeNEGATIVEBON SECOURS PROMED[facility]OSPITALY HEALTHInterpretation and review of laboratory resultsAbnormalBON SEC[facility] MERCY HEALTHKetones Ql (U)NegativeNEGATIVE [facility] HEALTHLeukocyte esterase Test strip Ql (U)NegativeNEGATIVEBON SECOURS PROMEDICA MEMORIAL HOSPITALY HEALTHNitrite, UrineNegativeNEGATIVEBON SEC[facility]RS PROMEDICA MEMORIAL HOSPITALY HEALTHpH, UA 5.55 - 8[facility] [employer] HEALTHProtein, UATRACEAbnormalNEGATIVEBON SECOURS PROMEDICA MEMORIAL HOSPITALY HEALTHSpecific [place], UA1.0141.005 - 1.03[facility]OMED[facility] MEM[facility] HOSPITALY HEALTH Turbidity UAClearClearBON SECOURS PROMEDICA MEMORIAL HOSPITALY HEALTHUrine HgbTRACEAbnormalNEGATIVEBON SECOURS PROMEDICA MEMORIAL HOSPITALY HEALTHUrobilinogen, UrineNormalNormalB[facility] MERCY HEALTHBON SECOURS PROMEDICA MEMORIAL HOSPITALY HEALTHUrinalysis, Routineon [id number], SemiQt,UrNegative NormalNEGMemorial Health System Marietta Memorial HospitalComment on above:Performed By: #### URNA, URTPRT, UMICAO, UEOS, UA #### [facility] [address] [place] [address] Greenhouse Grower: Jeanette Rosenthal, UrineTRACEAbnormalNEGMemorial Health System Marietta Memorial HospitalComment on above:Performed By: #### URNA, URTPRT, UMICAO, UEOS, UA #### [facility] [address] [place] [id number] Greenhouse Grower: RAY Rosenthallarity (U)ClearNormalCLEARMercy College Medical CenterComment on above:Performed By: #### URNA, URTPRT, UMICAO, UEOS, UA #### [facility] [address] [place] [address] Greenhouse Grower: RAY Rosenthalolor (U)YellowNormalYELMerHazel Hawkins Memorial HospitalComment on above:Performed By: #### URNA, URTPRT, UMICAO, UEOS, UA #### [facility] [address] [place] [address] Greenhouse Grower: Ronn Arias MDGlucose Ql (U)NegativeNormalNEGMerHazel Hawkins Memorial HospitalComment on above:Performed By: #### URNA, URTPRT, UMICAO, UEOS, UA #### [facility] [address] [place] [address] Greenhouse Grower: Ronn Arias MDKetones Ql (U)NegativeNormalNEGMerHazel Hawkins Memorial HospitalComment on above:Performed By: #### URNA, URTPRT, UMICAO, UEOS, UA #### [facility] [address] [place] [address] Greenhouse Grower: Ronn Arias MDLeukocyte esterase Test strip Ql (U)Negative NormalNEGMerHazel Hawkins Memorial HospitalComment on above:Performed By: #### URNA, URTPRT, UMICAO, UEOS, UA #### [facility] [address] [place] [address] Greenhouse Grower: Ronn Arias MDNitrite,UrNegativeNormalNEGMerHazel Hawkins Memorial HospitalComment on above:Performed By: #### URNA, URTPRT, UMICAO, UEOS, UA #### [facility] [address] [place] [address] Greenhouse Grower: Ronn Arias [facility],Ur5.0Klqrrq8.0-8.0[facility] HospitalComment on above:Performed By: #### URNA, URTPRT, UMICAO, UEOS, UA #### [facility] [address] [place] [address] Greenhouse Grower: MARQUEZ Rosenthalrotein Ql (U)TRACEAbnormalNEGMemorial Health System Marietta Memorial HospitalComment on above:Performed By: #### URNA, URTPRT, UMICAO, UEOS, UA #### [facility] [address] [place] [address] Greenhouse Grower: GUILLERMO Rosenthalpeacehealth southwest [facility]. [place],Ur1.384Lbvcjw0.005-1.030[facility] HospitalComment on above:Performed By: #### URNA, URTPRT, UMICAO, UEOS, UA #### [facility] [address] [place] [address] Greenhouse Grower: Ronn Arias MDUrobilinogen,UrNormalNormalNORMMemorial Health System Marietta Memorial HospitalComment on above:Performed By: #### URNA, URTPRT, UMICAO, UEOS, UA #### [address] [address] Greenhouse Grower: Ronn Arias MDUrinalysis,Microon [id number] TO 5 HYALINE Normal0-8[facility] HospitalComment on above:Result Comment: Reference range defined for non-centrifuged specimen.Performed By: #### URNA, URTPRT, UMICAO, UEOS, UA #### [facility] [address] [place] [address] Greenhouse Grower: Ronn Arias MDEpithelial cells LM Ql (Urine sed)NoneNormal0-5 [facility] HospitalComment on above:Performed By: #### URNA, URTPRT, UMICAO, UEOS, UA #### [place] [place] [address] Greenhouse Grower: Chrissy Rosenthal RBC's2 TO 4Hypevu3-9BdnrmMemorial Health System Marietta Memorial HospitalComment on above:Result Comment: Reference range defined for non- centrifuged specimen.Performed By: #### URNA, URTPRT, UMICAO, UEOS, UA #### [address] [address] Greenhouse Grower: Chrissy Rosenthal WBC's2 TO 4Jjeazv0-1JefzbMemorial Health System Marietta Memorial HospitalComment on above:Performed By: #### URNA, URTPRT, UMICAO, UEOS, UA #### [address] [address] Greenhouse Grower: Ever Rosenthal Metab w/rfx MGon 01-02-2022(cont.)Normal [facility] HospitalComment on above:Result Comment: Average GFR for 60-69 years old: 85 mL/min/1.73sq m Chronic Kidney Disease: <60 mL/min/1.73sq m Kidney failure: <15 mL/min/1.73sq m eGFR calculated using average adult body mass. Additional eGFR calculator available at: http://www.[employer].Exinda/multiple_crcl_2012.htmPerformed By: #### MAYCOL #### [address] [address] Greenhouse Grower: Ronn Arias MDAnion gap [Moles/Vol]14 mmol/LNormal9-17[facility] HospitalComment on above:Performed By: #### MAYCOL #### [address] [address] Greenhouse Grower: Ronn Arias MDCalcium [Mass/Vol]7.2 mg/dLLow8.6-10.4[facility] HospitalComment on above:Performed By: #### LACDS #### [facility] [place] [address] Greenhouse Grower: RAY Rosenthalhloride [Moles/Vol]108 mmol/UXabh35-508ZyqjdMemorial Health System Marietta Memorial HospitalComment on above:Performed By: #### LACDS #### [address] [address] Greenhouse Grower: Ronn Arias MDCO2 [Moles/Vol]20 mmol/QVjpnlr04-02KekfuMemorial Health System Marietta Memorial HospitalComment on above:Performed By: #### LACDS #### [address] [address] Greenhouse Grower: RAY Rosenthalreatinine [Mass/Vol]3.51 mg/dLHigh0.70-1.20 [facility] HospitalComment on above:Performed By: #### LACDS #### [address] [address] Greenhouse Grower: Ronn Arias MDGFR, Amer21 mL/minLow>60[facility] HospitalComment on above:Performed By: #### LACDS #### [address] [address] Greenhouse Grower: Ronn Arias MDGFR,non Amer17 mL/minLow>60[facility] HospitalComment on above:Performed By: #### LACDS #### [address] [address] Greenhouse Grower: Ronn Arias MDGlucose [Mass/Vol]122 mg/oLRhnx32-15MygotDavies campusComment on above:Performed By: #### LACDS #### [address] [address] Greenhouse Grower: Ronn Arias MDPotassium [Moles/Vol]5.0 mmol/LNormal3.7-5.3 [facility] HospitalComment on above:Performed By: #### LACDS #### [address] [address] Greenhouse Grower: GUILLERMO Rosenthalodium [Moles/Vol]142 mmol/IMtxyof859-764FawceMemorial Health System Marietta Memorial HospitalComment on above:Performed By: #### LACDS #### [place] [address] Greenhouse Grower: Ronn Arias MDUrea nitrogen [Mass/Vol]55 mg/dLHigh8-23[facility] HospitalComment on above:Performed By: #### MAYCOL #### [place] [address] Greenhouse Grower: Ronn Arias MD(cont.)[facility] Comment on above:Result Comment: Average GFR for 60-69 years old: 85 mL/min/1.73sq m Chronic Kidney Disease: <60 mL/min/1.73sq m Kidney failure: <15 mL/min/1.73sq m eGFR calculated using average adult body mass. Additional eGFR calculator available at: http://www.[employer].Exinda/multiple_crcl_2012.htmPerformed By: #### LIVP, BMPX, LIP, CDP #### [place] [address] Greenhouse Grower: Ronn Arias MDAnion gap [Moles/Vol]14 mmol/LNormal9-17[facility] HospitalComment on above:Performed By: #### LIVP, BMPX, LIP, CDP #### [address] [address] Greenhouse Grower: Ronn Arias MDCalcium [Mass/Vol]7.2 mg/dLLow8.6-10.4[facility] HospitalComment on above:Performed By: #### LIVP, BMPX, LIP, CDP #### [facility] [address] [place] [address] Greenhouse Grower: RAY Rosenthalhloride [Moles/Vol]109 mmol/RRhzn52-170NvayiMemorial Health System Marietta Memorial HospitalComment on above:Performed By: #### LIVP, BMPX, LIP, CDP #### [facility] [address] [place] [address] Greenhouse Grower: Ronn Arias MDCO2 [Moles/Vol]18 mmol/UUhv81-39MpfzaMemorial Health System Marietta Memorial HospitalComment on above:Performed By: #### LIVP, BMPX, LIP, CDP #### [facility] [address] [place] [address] Greenhouse Grower: RAY Rosenthalreatinine [Mass/Vol]4.02 mg/dLHigh0.70-1.20 [facility] HospitalComment on above:Performed By: #### LIVP, BMPX, LIP, CDP #### [facility] [address] [place] [address] Greenhouse Grower: Ronn Arias MDGFR, Amer18 mL/minLow>60[facility] HospitalComment on above:Performed By: #### LIVP, BMPX, LIP, CDP #### [facility] [address] [place] [address] Greenhouse Grower: Ronn Arias MDGFR,non Amer15 mL/minLow>60[facility] HospitalComment on above:Performed By: #### LIVP, BMPX, LIP, CDP #### [facility] [address] [place] [address] Greenhouse Grower: Ronn Arias MDGlucose [Mass/Vol]106 mg/nLYrac03-15WjwkbDavies campusComment on above:Performed By: #### LIVP, BMPX, LIP, CDP #### [facility] [address] [place] [address] Greenhouse Grower: MARQUEZ Rosenthalotassium [Moles/Vol]4.6 mmol/LNormal3.7-5.3 [facility] HospitalComment on above:Performed By: #### LIVP, BMPX, LIP, CDP #### [facility] [address] [place], [place] [address] Greenhouse Grower: GUILLERMO Rosenthalodium [Moles/Vol]141 mmol/OXgpxzg144-685SlexlMemorial Health System Marietta Memorial HospitalComment on above:Performed By: #### LIVP, BMPX, LIP, CDP #### [facility] [address] [place] [address] Greenhouse Grower: Ronn Arias MDUrea nitrogen [Mass/Vol]63 mg/dLHighland Hospital8-23[facility] HospitalComment on above:Performed By: #### LIVP, BMPX, LIP, CDP #### [facility] [address] [place] [address] Greenhouse Grower: Enmanuel Rosenthalsaint elizabeth hebron Metabolic Panel w/ Reflex to MGon [id number] gap [Moles/Vol]14 mmol/L9 - 17 mmol/LBON [facility] [employer] Calcium [Mass/Vol]7.2 mg/dLLow8.6 - 10.4 mg/dLBON SECOURS MERCY HEALTHChloride [Moles/Vol]108 mmol/LHigh98 - 107 mmol/LBON [facility] MERCY HEALTHCO2 [Moles/Vol] 20 mmol/L20 - 31 mmol/LBON [facility] [employer] HEALTHCreatinine [Mass/Vol]3.51 mg/dL High0.7 - 1.2 mg/dLBON [facility] ShoutlyY HEALTHGFR Pldxmtxu95 mL/ozaDiv30 - PINF mL/minBON SECNORTHER[facility] ShoutlyY HEALTHGFR Non- Knxpyapi50 mL/axbUus24 - PINF mL/minBON [facility] ShoutlyY HEALTHGFR/1.73 sq M.predicted MDRD (S/P/Bld) [Vol rate/Area]BON [facility] MEDICAL CENTERViRTUAL INTERACTiVE KET[facility]ALTH MAIN CAMPUSComment on above:Average GFR for 60-69 years old: 85 mL/min/1.73sq m Chronic Kidney Disease: <60 mL/min/1.73sq m Kidney failure: <15 mL/min/1.73sq m eGFR calculated using average adult body mass. Additional eGFR calculator available at: http://www.[employer]/My Best Interest_crcl_2012.htm Glucose [Mass/Vol]122 mg/bBPlyp67 - 99 mg/dLB[facility] [employer] Interpretation and review of laboratory resultsAbnormalBON [facility] HEALTH Potassium [Moles/Vol]5.0 mmol/L3.7 - 5.3 mmol/LBON [facility]RS MERCY HEALTHSodium [Moles/Vol]142 mmol/L135 - 144 mmol/LBON SECOURS PROMEDICA MEMORIAL HOSPITALEveUrea nitrogen (BldV) [Mass/Vol]55 mg/dLHigh8 - 23 mg/dLBON SECOURS PROMEDICA MEMORIAL HOSPITALY HEALTHBON SECOURS PROMEDICA MEMORIAL HOSPITALY Internet PawnAnion gap [Moles/Vol]14 mmol/L9 - 17 mmol/LBON [facility] HEALTH Calcium [Mass/Vol]7.2 mg/dLLow8.6 - 10.4 mg/dLB[facility] MERCY HEALTHChloride [Moles/Vol]109 mmol/LHigh98 - 107 mmol/LBON SECOURS PROMEDICA MEMORIAL HOSPITALY HEALTHCO2 [Moles/Vol] 18 mmol/LLow20 - 31 mmol/LBON SECOURS PROMEDICA MEMORIAL HOSPITALY HEALTHCreatinine [Mass/Vol]4.02 mg/dLHigh0.7 - 1.2 mg/dLBON SEC[facility]RS PROMEDICA MEMORIAL HOSPITALY HEALTHGFR Ejpmukvy13 mL/minLow 60 - PINF mL/minBON [facility] ShoutlyY HEALTHGFR Non- Niugzptj06 mL/ftsIgm17 - PINF mL/minBON [facility] ShoutlyY HEALTHGFR/1.73 sq M.predicted MDRD (S/P/Bld) [Vol rate/Area][facility] COMPANYComment on above:Average GFR for 60-69 years old: 85 mL/min/1.73sq m Chronic Kidney Disease: <60 mL/min/1.73sq m Kidney failure: <15 mL/min/1.73sq m eGFR calculated using average adult body mass. Additional eGFR calculator available at: http://www.[employer]/multiple_crcl_2011.htm Glucose [Mass/Vol]106 mg/jSCduc05 - 99 mg/dLBON SECNEWARK HOSPITALPotassium [Moles/Vol]4.6 mmol/L3.7 - 5.3 mmol/LBON SECNEWARK HOSPITALSodium [Moles/Vol] 141 mmol/L135 - 144 mmol/LBON SECNEWARK HOSPITALUrea nitrogen (BldV) [Mass/Vol]63 mg/dLHigh8 - 23 mg/dLBON SECNEWARK HOSPITALCBC with Auto Differentialon [id number] Eos #0.12B[facility] SECNEWARK HOSPITALAbsolute Immature Granulocyte0.00B[facility] SECNEWARK HOSPITALAbsolute Lymph #0.37LowBON SECNEWARK HOSPITALAbsolute [place] #0.49[facility] COMPANYBasophils (Bld) [#/Vol]0.00 10*3/uLBON [facility]ENCY HOSPITAL COMPANYBasophils/100 WBC (Bld)0 %0 - 2 %[facility] CENTEREosinophils/100 WBC (Bld)1 %1 - 4 %[facility] Hematocrit (Bld) [Volume fraction]30.4 %Low40.7 - 50.3 %[facility] Hemoglobin (Bld) [Mass/Vol]10.2 g/dLLow13 - 17 g/dLB[facility] COMPANY Immature granulocytes/100 WBC (Bld)0 %0[facility] COMPANYInterpretation and review of laboratory resultsAbnormalB[facility]OS[facility]ITAL COMPANYLymphocytes/100 WBC (Bld)3 %Low24 - 44 %[facility] MEDICAL CENTERH (RBC) [Entitic mass]28.0 pg 25.2 - 33.5 pgBON [facility] HOSPITALHC (RBC) [Mass/Vol]33.6 g/dL28.4 - 34.8 g/dLBON SECCLEVELAND CLINIC CHILDREN'S HOSPITAL FOR REHABILITATIONV (RBC) [Entitic vol]83.5 fL82.6 - 102.9 fLBON REGENCY HOSPITAL COMPANYMonocytes/100 WBC (Bld)4 %1 - 7 %[facility] Morphology Gordon (Bld) [Interp]NormalBON [facility]OS[facility]ITAL COMPANYNRBC Automated0.00.0 per 100 WBCBON [facility] HEALTHPlatelet distribution width (Bld) [Ratio]14.4 %11.8 - 14.4 %BON SECCONFLUENCE HEALTH [facility]OSPITAL, CENTRAL CAMPUSY HEALTHPlatelet mean volume (Bld) [Entitic vol] 10.3 fL8.1 - 13.5 fLBON [facility]CL[facility]ENTER HEALTHPlatelets (Bld) [#/Vol]150 10*3/uL [facility] HEALTHRBC (Bld) [#/Vol]3.64 10*6/uLLow4.21 - 5.77 m/uLBON [facility]ITAL COMPANYSegmented neutrophils/100 WBC (Bld)92 %High36 - 66 %[facility] HEALTHSegs Xgkxfrvo02.22HighBON REGENCY HOSPITAL COMPANYWBC (Bld) [#/Vol]12.2 10*3/uLHighBON [facility]OSPITAL COMPANYBON [facility] HEALTHCBC with Diffon [id number]. Basophil0.00 k/uLNormal0.0-0.2MercRobert F. Kennedy Medical CenterComment on above:Performed By: #### MAYCOL #### [employer] [address] [place] [address] Greenhouse Grower: MDAbs. GaloImm.Granulocyte0.00 k/uLNormal0.00-0.30[facility] HospitalComment on above:Performed By: #### LACDS #### [employer] [address] [place] [address] Greenhouse Grower: MDAbs. GaloNeutrophil (Seg)11.22 k/uLHigh1.8-7.7[facility] HospitalComment on above:Performed By: #### LACDS #### [employer] [address] [place] [address] Greenhouse Grower: Ronn Arias MDBasophils/100 WBC (Bld)0 %Normal0-2MercRobert F. Kennedy Medical CenterComment on above:Performed By: #### LACDS #### [employer] [address] [place] [address] Greenhouse Grower: Ronn Arias MDEosinophils (Bld) [#/Vol]0.12 10*3/uLNormal 0.0-0.4[facility] HospitalComment on above:Performed By: #### LACDS #### [address] [address] Greenhouse Grower: Ronn Arias MDEosinophils/100 WBC (Bld)1 %Normal1-4[facility] HospitalComment on above:Performed By: #### LACDS #### [address] [address] Greenhouse Grower: Ronn Arias MDImmature granulocytes/100 WBC (Bld)0 %Normal0 [facility] HospitalComment on above:Performed By: #### LACDS #### [address] [address] Greenhouse Grower: Ronn Arias MDLymphocytes (Bld) [#/Vol]0.37 10*3/uLLow1.0-4.8 [facility] HospitalComment on above:Performed By: #### LACDS #### [address] [address] Greenhouse Grower: Ronn Arias MDLymphocytes/100 WBC (Bld)3 %Qle14-03ChhfpMemorial Health System Marietta Memorial HospitalComment on above:Performed By: #### LACDS #### [address] [address] Greenhouse Grower: FRANKIE Rosenthalonocytes (Bld) [#/Vol]0.49 10*3/uLNormal0.1-0.8 [facility] HospitalComment on above:Performed By: #### LACDS #### [address] [address] Greenhouse Grower: FRANKIE Rosenthalonocytes/100 WBC (Bld)4 %Normal1-7[facility] HospitalComment on above:Performed By: #### LACDS #### [address] [address] Greenhouse Grower: FRANKIE Rosenthalorphology Gordon (Bld) [Interp]NormalNormalMemorial Health System Marietta Memorial HospitalComment on above:Performed By: #### LACDS #### [address] [address] Greenhouse Grower: Ronn Arias MDNeutrophil (Seg)92 %Xbvy25-18GrskhMemorial Health System Marietta Memorial HospitalComment on above:Performed By: #### LACJONES #### [address] [address] Greenhouse Grower: Ronn Arias MDErythrocyte distribution width (RBC) [Ratio]14.4 %Rvntnc48.8-14.4[facility] HospitalComment on above:Performed By: #### LACJONES #### [address] [address] Greenhouse Grower: Ronn Arias MDHematocrit (Bld) [Volume fraction]30.4 %Low 40.7-50.3Mercy College Medical CenterComment on above:Performed By: #### LACDS #### [address] [address] Greenhouse Grower: Ronn Arias MDHemoglobin (Bld) [Mass/Vol]10.2 g/dLLow13.0-17.0 [facility] HospitalComment on above:Performed By: #### LACDS #### [address] [address] Greenhouse Grower: FRANKIE RosenthalCH (RBC) [Entitic mass]28.0 riWudtpy66.2-33.5 [facility] HospitalComment on above:Performed By: #### MAYCOL #### [address] [address] Greenhouse Grower: FRANKIE RosenthalCHC (RBC) [Mass/Vol]33.6 g/fNEctwqw86.4-34.8 [facility] HospitalComment on above:Performed By: #### MAYCOL #### [address] [address] Greenhouse Grower: FRANKIE RosenthalCV (RBC) [Entitic vol]83.5 oORggfos40.6-102.9 [facility] HospitalComment on above:Performed By: #### MAYCOL #### [place] [address] Greenhouse Grower: YUNI Rosenthal Automated0.0 per 100 WBCNormal0.0[facility] HospitalComment on above:Performed By: #### MAYCOL #### [place] [address] Greenhouse Grower: Kaila Rosenthaltemarcelo mean volume (Bld) [Entitic vol]10.3 fL Normal8.1-13.5[facility] HospitalComment on above:Performed By: #### MAYCOL #### [place] [address] Greenhouse Grower: MARQUEZ Rosenthallatelets (Bld) [#/Vol]150 10*3/xVMcqjmk154-998 [facility] HospitalComment on above:Performed By: #### MAYCOL #### [address] [address] Greenhouse Grower: Ronn Arias MDRBC (Bld) [#/Vol]3.64 10*6/uLLow4.21-5.77[facility] HospitalComment on above:Performed By: #### LACDS #### [facility] [address] [place] [address] Greenhouse Grower: RAISA Rosenthal (Bld) [#/Vol]12.2 10*3/uLHigh3.5-11.3Mer[facility] College Medical CenterComment on above:Performed By: #### LACDS #### [facility] [address] [place], [place] [address] Greenhouse Grower: RAY Rosenthalult,Urineon [id number],UrineSpecimen Description .URINE Culture NO GROWTH Report Status FINAL 01/02/2022NormalMemorial Health System Marietta Memorial HospitalComment on above:Performed By: #### URNA, URTPRT, UMICAO, UEOS, UA #### [facility] [place], [place] [id number] Greenhouse Grower: RAY Rosenthalulture, Urineon [id number] identified Cx Nom (U)NO GROWTHBON VENCOR HOSPITAL HEALTHSpecimen Description.URINEBON SECNEWARK HOSPITALBON VENC[facility]ITAL HEALTHHepatic Function Panelon [id number] [Mass/Vol]2.9 g/dLLow3.5 - 5.2 g/dLBON [facility]ITAL HEALTHAlbumin/Globulin [Mass ratio]0.9 {ratio}Low1 - 2.5BON [facility] HEALTHALP (Bld) [Catalytic activity/Vol]96 U/L40 - 129 U/LBON [facility]ONFL[facility] CENTRAL CAMPUSViRTUAL INTERACTiVE HEALTHALT [Catalytic activity/Vol]123 U/LHigh5 - 41 U/LBON [facility] HEALTHAST [Catalytic activity/Vol]50 U/LHighNINF - 40 U/LBON [facility] HEALTHBilirubin [Mass/Vol] 1.8 mg/dLHigh0.3 - 1.2 mg/dLBON [facility] HEALTHBilirubin, Indirect0.7 mg/dL 0 - 1 mg/dLBON [facility]ITAL HEALTHBilirubin.indirect [Mass/Vol]1.1 mg/dLHigh NINF - 0.31 mg/dLBON [facility] PSA/Total PSA [Mass fraction]6.1 g/dLLow6.4 - 8.3 g/dLBON REGENCY HOSPITAL COMPANYLactate, Sepsison [id number] Acid, Sepsis, Whole Blood1.2 mmol/L0.5 - 1.9 mmol/LBON AVER[facility] QUEEN OF PEACE HOSPITALLactic Acid,Sep Wbld1.3 mmol/LNormal0.5-1.9[facility] HospitalComment on above:Performed By: #### URNA, URTPRT, UMICAO, UEOS, UA #### [employer] [address] [place], [place] [phone] Greenhouse Grower: Frances Rosenthalctic Acid, Sepsis, Whole Blood1.3 mmol/L0.5 - 1.9 mmol/LBON AVER[facility] QUEEN OF PEACE HOSPITALLactic Acid,Sep Wbld 1.0 mmol/LNormal0.5-1.9[facility] HospitalComment on above: Performed By: #### URNA, URTPRT, UMICAO, UEOS, UA #### [employer] [address] [place], [place] [address] Greenhouse Grower: Frances Rosenthalctic Acid, Sepsis, Whole Blood1.0 mmol/L0.5 - 1.9 mmol/LBON AV[facility] QUEEN OF PEACE HOSPITALLactic Acid,Sep Wbld 0.9 mmol/LNormal0.5-1.9[facility] HospitalComment on above: Performed By: #### URNA, URTPRT, UMICAO, UEOS, UA #### [employer] [address] [place] [address] Greenhouse Grower: Frances Rosenthalctic Acid, Sepsis, Whole Blood0.9 mmol/L0.5 - 1.9 mmol/LBON AV[facility] QUE[facility] OF PEACE HOSPITALLipaseon 01-02-2022 Lipase [Catalytic activity/Vol]1280 U/HJsse84-20QiprwMemorial Health System [facility] Hospital Comment on above:Performed By: #### LIVP, BMPX, LIP, CDP #### [facility] [address] [place] [address] Greenhouse Grower: Ronn Arias MDInterpretation and review of laboratory results AbnormalBON REGENCY HOSPITAL COMPANYLipase [Catalytic activity/Vol]1280 U/LHigh13 - 60 U/LBON [facility]ITAL HEALTHBON REGENCY HOSPITAL COMPANYLiver Profileon 01-02-2022 Albumin [Mass/Vol]2.9 g/dLLow3.5-5.2Mtrinity health systemy College Medical CenterComment on above:Performed By: #### LIVP, BMPX, LIP, CDP #### [facility] [address] [place] [address] Greenhouse Grower: Ronn Arias MDAlbumin/Glob Ratio0.9Low1.0-2.5[facility] HospitalComment on above:Performed By: #### LIVP, BMPX, LIP, CDP #### [employer] [address] [place] [address] Greenhouse Grower: Ronn Arias MDAlkaline Phos96 U/PEomcke60-435EhcaeMemorial Health System Marietta Memorial HospitalComment on above:Performed By: #### LIVP, BMPX, LIP, CDP #### [employer] [facility] [address] [place] [address] Greenhouse Grower: Ronn Arias MDALT [Catalytic activity/Vol]123 U/LHigh5-41[facility] HospitalComment on above:Performed By: #### LIVP, BMPX, LIP, CDP #### [facility] [address] [place] [address] Greenhouse Grower: Ronn Arias MDAST [Catalytic activity/Vol]50 U/LHigh<40[facility] HospitalComment on above:Performed By: #### LIVP, BMPX, LIP, CDP #### [facility] [address] [place] [address] Greenhouse Grower: Ronn Arias MDBilirubin [Mass/Vol]1.8 mg/dLHigh0.3-1.2MDavies campusComment on above:Performed By: #### LIVP, BMPX, LIP, CDP #### [address] [address] Greenhouse Grower: Pamela Rosenthalirubin, Indirect0.7 mg/dLNormal0.00-1.00[facility] HospitalComment on above:Performed By: #### LIVP, BMPX, LIP, CDP #### [facility] [address] [place] [address] Greenhouse Grower: Pamela Rosenthalirubin.indirect [Mass/Vol]1.1 mg/dLHigh<0.31 [facility] HospitalComment on above:Performed By: #### LIVP, BMPX, LIP, CDP #### [facility] [address] [place] [address] Greenhouse Grower: Ronn Arias MDProtein [Mass/Vol]6.1 g/dLLow6.4-8.3MDavies campusComment on above:Performed By: #### LIVP, BMPX, LIP, CDP #### [facility] [address] [place] [address] Greenhouse Grower: Ronn Arias MDNo Panel Informationon [id number] and review of laboratory resultsAbnormRiverside Doctors' Hospital WilliamsburgProtein,Tot,Eveleth Uron [id number] Prot. Conc.59 mg/dLNoThe Surgical Hospital at SouthwoodsComment on above:Result Comment: No normal range established.Performed By: #### URNA, URTPRT, UMICAO, UEOS, UA #### [facility] [address] [place] [address] Greenhouse Grower: GUILLERMO Rosenthalurgical Pathologyon [id number] Pathology(NOTE) -- Diagnosis -- Gallbladder: - Chronic [...] two black choleliths, each measuring 0.5 cm. 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 tm Microscopic Description Microscopic examination performed. SURGICAL PATHOLOGY CONSULTATION Patient Name: YOLI ANTUNEZ [facility] Rec: [id number] Path Number: [id number] [facility] ANATOMIC PATHOLOGY [address] [place] [phone] NoThe Surgical Hospital at SouthwoodsComment on above: Performed By: #### LACDS #### [employer] [address] [place] [phone] Greenhouse Grower: Ronn Arias MDUS RENAL LIMITEDon [id number] RENAL LIMITED EXAMINATION: ULTRASOUND OF THE KIDNEYS [...] Signed by: Naif Bean MD 01/02/22 Final resultNormalMerHazel Hawkins Memorial HospitalUnremarkable renal ultrasound. No hydronephrosis. [facility] CONSOLIDATEDEXAMINATION: ULTRASOUND OF THE KIDNEYS 01/02/2022 8:22 [...] Gross preservation of the bilateral corticomedullary differentiation. [facility] Naif Bruce MD - 01/02/2022 EXAMINATION: ULTRASOUND [...] differentiation. IMPRESSION: Unremarkable renal ultrasound. No hydronephrosis. [employer] Phone: radiology Study observation (narrative)[employer] Phone: us RENAL LIMITEDOrdered By: Naif Bean on 01-02-2022 [facility] [employer] Work Phone: Basic Metabolic Panelon [id number] gap [Moles/Vol]14 mmol/L9 - 17 mmol/LBON [facility]ARE CORPORATIONRTF LogicCalcium [Mass/Vol]6.4 mg/dLLow8.6 - 10.4 mg/dLBON [facility] HEALTHCARE CORPORATIONRTF LogicChloride [Moles/Vol]106 mmol/L98 - 107 mmol/LBON [employer] CoCO2 [Moles/Vol]19 mmol/LLow20 - 31 mmol/L [facility] [employer] CoCreatinine [Mass/Vol]3.73 mg/dLHigh0.7 - 1.2 mg/dLBON [employer] CoComment on above:ICTERIC SPECIMENGFR Bgvycnqu14 mL/vmrSvu00 - PINF mL/minABRAZO SCOTT[facility]ALE [facility]AMPUS [employer] CoGFR Non- Dhxupbdb50 mL/emwHfj15 - PINF mL/minABRAZO [facility] [employer] CoGFR/1.73 sq M.predicted MDRD (S/P/Bld) [Vol rate/Area][facility] [employer] CoComment on above:Average GFR for 60-69 years old: 85 mL/min/1.73sq m Chronic Kidney Disease: <60 mL/min/1.73sq m Kidney failure: <15 mL/min/1.73sq m eGFR calculated using average adult body mass. Additional eGFR calculator available at: http://www.[employer].Exinda/multiple_crcl_2011.htm Glucose [Mass/Vol]114 mg/mAHlkk06 - 99 mg/dLBON [employer] Interpretation and review of laboratory resultsAbnormalBON [employer] Potassium [Moles/Vol]4.4 mmol/L3.7 - 5.3 mmol/LBON [employer] CoSodium [Moles/Vol]139 mmol/L135 - 144 mmol/LBON [employer] CoUrea nitrogen (BldV) [Mass/Vol]58 mg/dLHigh8 - 23 mg/dLBON [facility]ALTH[facility]ARE CORPORATIONRTF LogicCHOATE MEMORIAL HOSPITALRTF LogicBasic Metabolic Profon 01-01-2022(cont.)NormalMemorial Health System Marietta Memorial HospitalComment on above:Result Comment: Average GFR for 60-69 years old: 85 mL/min/1.73sq m Chronic Kidney Disease: <60 mL/min/1.73sq m Kidney failure: <15 mL/min/1.73sq m eGFR calculated using average adult body mass. Additional eGFR calculator available at: http://www.[employer].Exinda/multiple_crcl_2012.htmPerformed By: #### URNA, URTPRT, UMICAO, UEOS, UA #### [facility] [address] [place] [address] Greenhouse Grower: Ronn Arias MDAnion gap [Moles/Vol]14 mmol/LNormal9-17[facility] HospitalComment on above:Performed By: #### URNA, URTPRT, UMICAO, UEOS, UA #### [facility] [address] [place] [address] Greenhouse Grower: RAY Rosenthalalcium [Mass/Vol]6.4 mg/dLLow8.6-10.4[facility] HospitalComment on above:Performed By: #### URNA, URTPRT, UMICAO, UEOS, UA #### [employer] [facility] [address] [place] [address] Greenhouse Grower: Ronn Arias MDChloride [Moles/Vol]106 mmol/NSjtodq30-274FthjdMemorial Health System Marietta Memorial HospitalComment on above:Performed By: #### URNA, URTPRT, UMICAO, UEOS, UA #### [facility] [address] [place] [address] Greenhouse Grower: Ronn Arias MDCO2 [Moles/Vol]19 mmol/VCil38-80XeftlMemorial Health System Marietta Memorial HospitalComment on above:Performed By: #### URNA, URTPRT, UMICAO, UEOS, UA #### [facility] [address] [place] [address] Greenhouse Grower: RAY Rosenthalreatinine [Mass/Vol]3.73 mg/dLHigh0.70-1.20 [facility] HospitalComment on above:Result Comment: ICTERIC SPECIMENPerformed By: #### URNA, URTPRT, UMICAO, UEOS, UA #### [facility] [address] [place] [address] Greenhouse Grower: Ronn Arias MDGFR, Amer20 mL/minLow>60[facility] HospitalComment on above:Performed By: #### URNA, URTPRT, UMICAO, UEOS, UA #### [address] [address] Greenhouse Grower: Ronn Arias MDGFR,non Amer16 mL/minLow>60[facility] HospitalComment on above:Performed By: #### URNA, URTPRT, UMICAO, UEOS, UA #### [address] [address] Greenhouse Grower: Ronn Arias MDGlucose [Mass/Vol]114 mg/hLZkyx93-71PidftDavies campusComment on above:Performed By: #### URNA, URTPRT, UMICAO, UEOS, UA #### [address] [address] Greenhouse Grower: MARQUEZ Rosenthalotassium [Moles/Vol]4.4 mmol/LNormal3.7-5.3 [facility] HospitalComment on above:Performed By: #### URNA, URTPRT, UMICAO, UEOS, UA #### [facility] [address] [place] [address] Greenhouse Grower: GUILLERMO Rosenthalodium [Moles/Vol]139 mmol/YLezpfe102-589OmmziMemorial Health System Marietta Memorial HospitalComment on above:Performed By: #### URNA, URTPRT, UMICAO, UEOS, UA #### [facility] [address] [place] [address] Greenhouse Grower: Ronn Arias MDUrea nitrogen [Mass/Vol]58 mg/dLHigh8-23[facility] HospitalComment on above:Performed By: #### URNA, URTPRT, UMICAO, UEOS, UA #### [facility] [address] [place] [address] Greenhouse Grower: Chelsie Rosenthal 69-25-2108Tnggtevzrta distribution width (RBC) [Ratio]14.5 %High11.8-14.4[facility] HospitalComment on above:Performed By: #### URNA, URTPRT, UMICAO, UEOS, UA #### [facility] [address] [place] [address] Greenhouse Grower: Ronn Arias MDHematocrit (Bld) [Volume fraction]30.0 %Low 40.7-50.3MDavies campusComment on above:Performed By: #### URNA, URTPRT, UMICAO, UEOS, UA #### [facility] [address] [place] [address] Greenhouse Grower: Ronn Arias MDHemoglobin (Bld) [Mass/Vol]10.0 g/dLLow13.0-17.0 [facility] HospitalComment on above:Performed By: #### URNA, URTPRT, UMICAO, UEOS, UA #### [facility] [address] [place] [address] Greenhouse Grower: FRANKIE RosenthalCH (RBC) [Entitic mass]28.2 gvEgxhnl73.2-33.5 [facility] HospitalComment on above:Performed By: #### URNA, URTPRT, UMICAO, UEOS, UA #### [facility] [address] [place] [address] Greenhouse Grower: WILBERT RosenthalC (RBC) [Mass/Vol]33.3 g/zPUxcdrm74.4-34.8 [facility] HospitalComment on above:Performed By: #### URNA, URTPRT, UMICAO, UEOS, UA #### [facility] [address] [place] [address] Greenhouse Grower: FRANKIE RosenthalCV (RBC) [Entitic vol]84.7 dWZsidac98.6-102.9 [facility] HospitalComment on above:Performed By: #### URNA, URTPRT, UMICAO, UEOS, UA #### [facility] [address] [place] [address] Greenhouse Grower: YUNI Rosenthal Automated0.0 per 100 WBCNormal0.0[facility] HospitalComment on above:Performed By: #### URNA, URTPRT, UMICAO, UEOS, UA #### [facility] [address] [place] [address] Greenhouse Grower: Susan Rosenthal mean volume (Bld) [Entitic vol]11.0 fL Normal8.1-13.5[facility] HospitalComment on above:Performed By: #### URNA, URTPRT, UMICAO, UEOS, UA #### [facility] [address] [place] [address] Greenhouse Grower: Leslie Rosenthal (Bld) [#/Vol]157 10*3/sXEqikih165-308 [facility] HospitalComment on above:Performed By: #### URNA, URTPRT, UMICAO, UEOS, UA #### [facility] [address] [place] [phone] Greenhouse Grower: CHASIDY RosenthalBC (Bld) [#/Vol]3.54 10*6/uLLow4.21-5.77[facility] HospitalComment on above:Performed By: #### URNA, URTPRT, UMICAO, UEOS, UA #### [facility] [address] [place], [place] [phone] Greenhouse Grower: Ronn Arias MDWBC (Bld) [#/Vol]16.8 10*3/uLHigh3.5-11.3Mtrinity health systemy College Medical CenterComment on above:Performed By: #### URNA, URTPRT, UMICAO, UEOS, UA #### [facility] [address] [place], [place] [phone] Greenhouse Grower: Ronn Arias MDHematocrit (Bld) [Volume fraction]30.0 %Low40.7 - 50.3 %[facility] HOSPITAL COMPANYHemoglobin (Bld) [Mass/Vol]10.0 g/dLLow13 - 17 g/dLBON [facility] LODI HOSPITALH (RBC) [Entitic mass]28.2 pg25.2 - 33.5 pgBON [facility]ODI HOSPITALHC (RBC) [Mass/Vol]33.3 g/dL28.4 - 34.8 g/dLBON [facility] LODI HOSPITALV (RBC) [Entitic vol]84.7 fL82.6 - 102.9 fLRIVERSIDE BEHAVIORAL HEALTH CENTERNRBC Automated0.00.0 per 100 WBCBON REGENCY HOSPITAL COMPANYPlatelet distribution width (Bld) [Ratio]14.5 %High11.8 - 14.4 %[facility] Platelet mean volume (Bld) [Entitic vol]11.0 fL8.1 - 13.5 fLBON VENCOR HOSPITAL HEALTHPlatelets (Bld) [#/Vol]157 10*3/uLBON SECNEWARK HOSPITALRBC (Bld) [#/Vol]3.54 10*6/uLLow4.21 - 5.77 m/uLBON REGENCY HOSPITAL COMPANYWBC (Bld) [#/Vol] 16.8 10*3/uLHighBON REGENCY HOSPITAL COMPANYCalcium, [employer]icon [id number] [Moles/Vol]0.95 mmol/LLow1.13-1.33[facility] HospitalComment on above:Performed By: #### URNA, URTPRT, UMICAO, UEOS, UA #### [facility] [address] [place] [address] Greenhouse Grower: RAY Rosenthalalcium, Ionizedon 82-67-1722Blwjtvf, Ionized 0.95 mmol/LLow1.13 - 1.33 mmol/LBON [facility]ITAL COMPANYInterpretation and review of laboratory resultsAbnormalWARREN MEMORIAL HOSPITALComp Metabolic Pr/rfx MGon 38-19-6946Twdqruurqx [Mass/Vol]3.74 mg/dLHigh 0.70-1.20[facility] HospitalComment on above:Result Comment: ICTERIC SPECIMENPerformed By: #### URNA, URTPRT, UMICAO, UEOS, UA #### [facility] [address] [place] [address] Greenhouse Grower: Ronn Arias MDGFR, Amer20 mL/minLow>60[facility] HospitalComment on above:Performed By: #### URNA, URTPRT, UMICAO, UEOS, UA #### [facility] [address] [place] [address] Greenhouse Grower: Ronn Arias MDGFR,non Amer16 mL/minLow>60[facility] HospitalComment on above:Performed By: #### URNA, URTPRT, UMICAO, UEOS, UA #### [facility] [address] [place], [place] [phone] Greenhouse Grower: Ronn Arias MD(cont.)[facility] Comment on above:Result Comment: Average GFR for 60-69 years old: 85 mL/min/1.73sq m Chronic Kidney Disease: <60 mL/min/1.73sq m Kidney failure: <15 mL/min/1.73sq m eGFR calculated using average adult body mass. Additional eGFR calculator available at: http://www.[employer]/multiple_crcl_2012.htmPerformed By: #### URNA, URTPRT, UMICAO, UEOS, UA #### [employer] [address] [place] [address] Greenhouse Grower: Ronn Arias MDAlbumin [Mass/Vol]3.2 g/dLLow3.5-5.2MDavies campusComment on above:Performed By: #### URNA, URTPRT, UMICAO, UEOS, UA #### [employer] [address] [place] [address] Greenhouse Grower: Ronn Arias MDAlbumin/Glob Ratio1.5Mxzyoz6.0-2.5[facility] HospitalComment on above:Performed By: #### URNA, URTPRT, UMICAO, UEOS, UA #### [employer] [address] [place] [address] Greenhouse Grower: Obdulia Rosenthalkaline Rqgw095 U/GSyddgz33-667CmkgxMemorial Health System Marietta Memorial HospitalComment on above:Performed By: #### URNA, URTPRT, UMICAO, UEOS, UA #### [employer] [address] [place] [address] Greenhouse Grower: Ronn Arias MDALT [Catalytic activity/Vol]185 U/LHigh5-41[facility] HospitalComment on above:Performed By: #### URNA, URTPRT, UMICAO, UEOS, UA #### [employer] [address] [place] [address] Greenhouse Grower: Ronn Madoff, MDAnion gap [Moles/Vol]12 mmol/LNormal9-17[facility] HospitalComment on above:Performed By: #### URNA, URTPRT, UMICAO, UEOS, UA #### [facility] [address] [place] [address] Greenhouse Grower: Ronn Arias MDAST [Catalytic activity/Vol]103 U/LHigh<40MerHazel Hawkins Memorial HospitalComment on above:Performed By: #### URNA, URTPRT, UMICAO, UEOS, UA #### [facility] [address] [place] [address] Greenhouse Grower: Ronn Arias MDBilirubin [Mass/Vol]4.3 mg/dLHigh0.3-1.2MDavies campusComment on above:Performed By: #### URNA, URTPRT, UMICAO, UEOS, UA #### [facility] [address] [place] [address] Greenhouse Grower: RAY Rosenthalalcium [Mass/Vol]6.5 mg/dLLow8.6-10.4[facility] HospitalComment on above:Performed By: #### URNA, URTPRT, UMICAO, UEOS, UA #### [employer] [facility] [address] [place] [address] Greenhouse Grower: Ronn Arais MDChloride [Moles/Vol]107 mmol/YTtnjvg63-178XdrlkMemorial Health System Marietta Memorial HospitalComment on above:Performed By: #### URNA, URTPRT, UMICAO, UEOS, UA #### [facility] [address] [place] [address] Greenhouse Grower: Ronn Arias MDCO2 [Moles/Vol]19 mmol/GSbh89-52AnbjhMemorial Health System Marietta Memorial HospitalComment on above:Performed By: #### URNA, URTPRT, UMICAO, UEOS, UA #### [facility] [address] [place] [address] Greenhouse Grower: Ronn Arias MDGlucose [Mass/Vol]109 mg/vAWxue99-64MsohhDavies campusComment on above:Performed By: #### URNA, URTPRT, UMICAO, UEOS, UA #### [facility] [address] [place] [address] Greenhouse Grower: Ronn Arias MDPotassium [Moles/Vol]4.4 mmol/LNormal3.7-5.3 [facility] HospitalComment on above:Performed By: #### URNA, URTPRT, UMICAO, UEOS, UA #### [address] [address] Greenhouse Grower: Ronn Arias MDProtein [Mass/Vol]5.8 g/dLLow6.4-8.3MDavies campusComment on above:Performed By: #### URNA, URTPRT, UMICAO, UEOS, UA #### [place] [address] Greenhouse Grower: GUILLERMO Rosenthalodium [Moles/Vol]138 mmol/RJdrqdw998-272IsyxpMemorial Health System Marietta Memorial HospitalComment on above:Performed By: #### URNA, URTPRT, UMICAO, UEOS, UA #### [facility] [address] [place] [address] Greenhouse Grower: Ronn Arias MDUrea nitrogen [Mass/Vol]59 mg/dLHigh8-23[facility] HospitalComment on above:Performed By: #### URNA, URTPRT, UMICAO, UEOS, UA #### [address] [address] Greenhouse Grower: RAY Rosenthalreatinine [Mass/Vol]3.86 mg/dLHigh0.70-1.20 [facility] HospitalComment on above:Result Comment: ICTERIC SPECIMENPerformed By: #### URNA, URTPRT, UMICAO, UEOS, UA #### [facility] [address] [place] [address] Greenhouse Grower: Ronn Arias MDGFR, Amer19 mL/minLow>60[facility] HospitalComment on above:Performed By: #### URNA, URTPRT, UMICAO, UEOS, UA #### [facility] [address] [place] [address] Greenhouse Grower: Ronn Arias MDGFR,non Amer16 mL/minLow>60[facility] HospitalComment on above:Performed By: #### URNA, URTPRT, UMICAO, UEOS, UA #### [address] [address] Greenhouse Grower: Ronn Arias MD(cont.)[facility] Comment on above:Result Comment: Average GFR for 60-69 years old: 85 mL/min/1.73sq m Chronic Kidney Disease: <60 mL/min/1.73sq m Kidney failure: <15 mL/min/1.73sq m eGFR calculated using average adult body mass. Additional eGFR calculator available at: http://www.[employer].com/multiple_crcl_2012.htmPerformed By: #### URNA, URTPRT, UMICAO, UEOS, UA #### [address] [place] [address] Greenhouse Grower: Obdulia Rosenthalbumin [Mass/Vol]3.0 g/dLLow3.5-5.2MDavies campusComment on above:Performed By: #### URNA, URTPRT, UMICAO, UEOS, UA #### [address] [address] Greenhouse Grower: Ronn Arias MDAlbumin/Glob Ratio1.7Qctlkv6.0-2.5[facility] HospitalComment on above:Performed By: #### URNA, URTPRT, UMICAO, UEOS, UA #### [facility] [address] [place] [address] Greenhouse Grower: Obdulia Rosenthalkaline Phos98 U/HZepoum23-607GdrznMemorial Health System Marietta Memorial HospitalComment on above:Performed By: #### URNA, URTPRT, UMICAO, UEOS, UA #### [facility] [address] [place] [address] Greenhouse Grower: Ronn Arias MDALT [Catalytic activity/Vol]191 U/LHigh5-41[facility] HospitalComment on above:Performed By: #### URNA, URTPRT, UMICAO, UEOS, UA #### [facility] [address] [place] [address] Greenhouse Grower: Ronn Arias MDAnivicky gap [Moles/Vol]13 mmol/LNormal9-17[facility] HospitalComment on above:Performed By: #### URNA, URTPRT, UMICAO, UEOS, UA #### [facility] [address] [place] [address] Greenhouse Grower: Ronn Arias MDAST [Catalytic activity/Vol]112 U/LHigh<40[facility] HospitalComment on above:Performed By: #### URNA, URTPRT, UMICAO, UEOS, UA #### [facility] [address] [place] [address] Greenhouse Grower: Ronn Arias MDBilirubin [Mass/Vol]4.5 mg/dLHigh0.3-1.2[facility] College Medical CenterComment on above:Performed By: #### URNA, URTPRT, UMICAO, UEOS, UA #### [facility] [address] [place] [address] Greenhouse Grower: RAY Rosenthalalcium [Mass/Vol]6.5 mg/dLLow8.6-10.4[facility] HospitalComment on above:Performed By: #### URNA, URTPRT, UMICAO, UEOS, UA #### [facility] [address] [place] [address] Greenhouse Grower: RAY Rosenthalhloride [Moles/Vol]109 mmol/WFcuf41-019IszjaMemorial Health System Marietta Memorial HospitalComment on above:Performed By: #### URNA, URTPRT, UMICAO, UEOS, UA #### [facility] [address] [place] [address] Greenhouse Grower: Ronn Arias MDCO2 [Moles/Vol]18 mmol/AMor51-92ZugkaMemorial Health System Marietta Memorial HospitalComment on above:Performed By: #### URNA, URTPRT, UMICAO, UEOS, UA #### [facility] [address] [place] [address] Greenhouse Grower: Ronn Arias MDGlucose [Mass/Vol]106 mg/cVLktp76-97OlyizDavies campusComment on above:Performed By: #### URNA, URTPRT, UMICAO, UEOS, UA #### [facility] [address] [place] [address] Greenhouse Grower: Ronn Arias MDPotassium [Moles/Vol]4.5 mmol/LNormal3.7-5.3 [facility] HospitalComment on above:Performed By: #### URNA, URTPRT, UMICAO, UEOS, UA #### [facility] [address] [place] [address] Greenhouse Grower: Ronn Arias MDProtein [Mass/Vol]5.5 g/dLLow6.4-8.3Mtrinity health systemy College Medical CenterComment on above:Performed By: #### URNA, URTPRT, UMICAO, UEOS, UA #### [facility] [address] [place], [place] [phone] Greenhouse Grower: GUILLERMO Rosenthalodium [Moles/Vol]140 mmol/XHxixpb023-127EsvukMemorial Health System Marietta Memorial HospitalComment on above:Performed By: #### URNA, URTPRT, UMICAO, UEOS, UA #### [facility] [address] [place] [address] Greenhouse Grower: Ronn Arias MDUrea nitrogen [Mass/Vol]59 mg/dLHigh8-23[facility] HospitalComment on above:Performed By: #### URNA, URTPRT, UMICAO, UEOS, UA #### [facility] [address] [place] [address] Greenhouse Grower: RAY Rosenthalomprehensive Metabolic Panel w/ Reflex to MGon [id number] [Mass/Vol]3.2 g/dLLow3.5 - 5.2 g/dLB[facility] Internet Pawn Albumin/Globulin [Mass ratio]1.2 {ratio}1 - 2.5[facility] HEALTHALP (Bld) [Catalytic activity/Vol]101 U/L40 - 129 U/LBON [facility]ITALY HEALTHALT [Catalytic activity/Vol]185 U/LHigh5 - 41 U/LBON [facility]ITALY HEALTHAnion gap [Moles/Vol]12 mmol/L9 - 17 mmol/LBON [facility]ITALY HEALTHAST [Catalytic activity/Vol]103 U/LHighNINF - 40 U/LBON [facility]ITALY HEALTHBilirubin [Mass/Vol]4.3 mg/dLHigh0.3 - 1.2 mg/dLB[facility]ITALY HEALTHCalcium [Mass/Vol] 6.5 mg/dLLow8.6 - 10.4 mg/dLB[facility]ITALY HEALTHChloride [Moles/Vol]107 mmol/L98 - 107 mmol/LBON [facility] COMPANYCO2 [Moles/Vol]19 mmol/LLow20 - 31 mmol/LB[facility] COMPANYCreatinine [Mass/Vol]3.74 mg/dLHigh0.7 - 1.2 mg/dL [facility] Medical Centerment on above:ICTERIC SPECIMENFree PSA/Total PSA [Mass fraction]5.8 g/dLLow6.4 - 8.3 g/dLBON [facility] HOSPITAL COMPANYGFR Eolnvrxi21 mL/hwwJqz79 - PINF mL/minRIVERSIDE BEHAVIORAL HEALTH CENTERGFR Non- Zmjrbhrk45 mL/xotWpz94 - PINF mL/minBON [facility]ENCY HOSPITAL COMPANYGFR/1.73 sq M.predicted MDRD (S/P/Bld) [Vol rate/Area][facility] on above:Average GFR for 60-69 years old: 85 mL/min/1.73sq m Chronic Kidney Disease: <60 mL/min/1.73sq m Kidney failure: <15 mL/min/1.73sq m eGFR calculated using average adult body mass. Additional eGFR calculator available at: http://www.[employer]/multiple_crcl_2012.htm Glucose [Mass/Vol]109 mg/bQJsbr55 - 99 mg/dLBON REGENC[facility]OSPITAL COMPANY Interpretation and review of laboratory resultsAbnormalRIVERSIDE BEHAVIORAL HEALTH CENTER Potassium [Moles/Vol]4.4 mmol/L3.7 - 5.3 mmol/LBON [facility] COMPANYSodium [Moles/Vol]138 mmol/L135 - 144 mmol/LBON [facility] COMPANYUrea nitrogen (BldV) [Mass/Vol]59 mg/dLHigh8 - 23 mg/dLBON [facility] HOSPITALAlbumin [Mass/Vol]3 g/dLLow3.5 - 5.2 g/dLB[facility] COMPANY Albumin/Globulin [Mass ratio]1.2 {ratio}1 - 2.5B[facility] HOSPITAL COMPANYALP (Bld) [Catalytic activity/Vol]98 U/L40 - 129 U/LBON [facility] COMPANYALT [Catalytic activity/Vol]191 U/LHigh5 - 41 U/LBON [facility]CY HEALTHAnion gap [Moles/Vol] 13 mmol/L9 - 17 mmol/LBON [facility]ITALY HEALTHAST [Catalytic activity/Vol]112 U/LHighNINF - 40 U/LBON [facility]ITALY HEALTHBilirubin [Mass/Vol]4.5 mg/dLHigh0.3 - 1.2 mg/dLB[facility] MERCY HEALTHCalcium [Mass/Vol]6.5 mg/dLLow8.6 - 10.4 mg/dLB[facility] MERCY HEALTHChloride [Moles/Vol]109 mmol/LHigh98 - 107 mmol/L [facility] HEALTHCO2 [Moles/Vol]18 mmol/LLow20 - 31 mmol/LBON [facility]ITALY HEALTHCreatinine [Mass/Vol]3.86 mg/dLHigh0.7 - 1.2 mg/dLB[facility] HEALTHComment on above:ICTERIC SPECIMENFree PSA/Total PSA [Mass fraction]5.5 g/dLLow6.4 - 8.3 g/dLBON SECCONFL[facility] CENTRAL [facility]AMPUSY HEALTHGFR Opmzlhfm01 mL/hefZqu65 - PINF mL/minBON [facility]OM[facility]OSPITALY HEALTHGFR Non- Jcqypbir66 mL/wbmKnl29 - PINF mL/minBON SEC[facility]RS Shoutly HEALTHGFR/1.73 sq M.predicted MDRD (S/P/Bld) [Vol rate/Area]R[facility]ERSIDE BEHAVIORAL HEALTH CENTERComment on above:Average GFR for 60-69 years old: 85 mL/min/1.73sq m Chronic Kidney Disease: <60 mL/min/1.73sq m Kidney failure: <15 mL/min/1.73sq m eGFR calculated using average adult body mass. Additional eGFR calculator available at: http://www.[employer].Exinda/multiple_crcl_2012.htm Glucose [Mass/Vol]106 mg/aXQuxr16 - 99 mg/dLBON [facility] MERCY HEALTHPotassium [Moles/Vol]4.5 mmol/L3.7 - 5.3 mmol/LBON [facility] HEALTHSodium [Moles/Vol] 140 mmol/L135 - 144 mmol/LBON [facility] HEALTHUrea nitrogen (BldV) [Mass/Vol]59 mg/dLHigh8 - 23 mg/dLBON [facility] HOSPITALY HEALTHDifferentialon 68-40-7252Bjk. Basophil0.03 k/uLNormal0.00-0.20[facility] Comment on above:Performed By: #### URNA, URTPRT, UMICAO, UEOS, UA #### [facility] [address] [place] [address] Greenhouse Grower: MDAbs. GaloImm.Granulocyte0.10 k/uLNormal0.00-0.30[facility] HospitalComment on above:Performed By: #### URNA, URTPRT, UMICAO, UEOS, UA #### [facility] [address] [place] [address] Greenhouse Grower: Mak Rosenthal.Neutrophil (Seg)14.48 k/uLHigh1.50-8.10[facility] HospitalComment on above:Performed By: #### URNA, URTPRT, UMICAO, UEOS, UA #### [facility] [address] [place] [address] Greenhouse Grower: Ronn Arias MDBasophils/100 WBC (Bld)0 %Normal0-2MDavies campusComment on above:Performed By: #### URNA, URTPRT, UMICAO, UEOS, UA #### [facility] [address] [place] [address] Greenhouse Grower: PRANAY Rosenthalosinophils (Bld) [#/Vol]0.06 10*3/uLNormal 0.00-0.44[facility] HospitalComment on above:Performed By: #### URNA, URTPRT, UMICAO, UEOS, UA #### [facility] [address] [place] [address] Greenhouse Grower: PRANAY Rosenthalosinophils/100 WBC (Bld)0 %Low1-4[facility] HospitalComment on above:Performed By: #### URNA, URTPRT, UMICAO, UEOS, UA #### [facility] [address] [place] [address] Greenhouse Grower: Ronn Arias MDImmature granulocytes/100 WBC (Bld)1 %Nfsi9JdwfwMemorial Health System Marietta Memorial HospitalComment on above:Performed By: #### URNA, URTPRT, UMICAO, UEOS, UA #### [facility] [address] [place] [address] Greenhouse Grower: Ronn Arias MDLymphocytes (Bld) [#/Vol]0.87 10*3/uLLow 1.10-3.70[facility] HospitalComment on above:Performed By: #### URNA, URTPRT, UMICAO, UEOS, UA #### [facility] [address] [place] [address] Greenhouse Grower: Arias Rosenthalmphocytes/100 WBC (Bld)5 %Qff85-84VmdedMemorial Health System Marietta Memorial HospitalComment on above:Performed By: #### URNA, URTPRT, UMICAO, UEOS, UA #### [facility] [address] [place] [address] Greenhouse Grower: FRANKIE Rosenthalonocytes (Bld) [#/Vol]1.28 10*3/uLHigh0.10-1.20 [facility] HospitalComment on above:Performed By: #### URNA, URTPRT, UMICAO, UEOS, UA #### [facility] [address] [place] [address] Greenhouse Grower: Ronn Arias MDMonocytes/100 WBC (Bld)8 %Normal3-12[facility] HospitalComment on above:Performed By: #### URNA, URTPRT, UMICAO, UEOS, UA #### [facility] [address] [place], [place] [phone] Greenhouse Grower: Ronn Arias MDNeutrophil (Seg)86 %Uujb54-18GwmovMemorial Health System Marietta Memorial HospitalComment on above:Performed By: #### URNA, URTPRT, UMICAO, UEOS, UA #### [facility] [address] [place], [place] [phone] Greenhouse Grower: CHASIDY RosenthalBC morphology finding Nom (Bld)ANISOCYTOSIS PRESENTNoThe Surgical Hospital at SouthwoodsComment on above:Performed By: #### URNA, URTPRT, UMICAO, UEOS, UA #### [facility] [address] [place], [place] [phone] Greenhouse Grower: Ronn Arias MDAbsolute Eos #0.06[facility] Absolute Immature Granulocyte0.10[facility] HEALTHAbsolute Lymph #0.87Low [facility] HEALTHAbsolute [place] #1.28HighB[facility] MERCY HEALTHBasophils (Bld) [#/Vol]0.03 10*3/uLBON [facility]OURS MERCY HEALTHBasophils/100 WBC (Bld)0 %0 - 2 %[facility] HEALTHEosinophils/100 WBC (Bld)0 %Low1 - 4 %[facility] HEALTHImmature granulocytes/100 WBC (Bld)1 %Otvl1CNA [facility] Lymphocytes/100 WBC (Bld)5 %Low24 - 43 %[facility] HEALTHMonocytes/100 WBC (Bld)8 %3 - 12 %[facility] HEALTHRBC (Bld) [#/Vol]ANISOCYTOSIS PRESENTBON [facility] MERCY HEALTHSegmented neutrophils/100 WBC (Bld)86 %High36 - 65 %[facility] HEALTHSegs Damcwmbc09.48HighB[facility]ALTH Hemoglobin A1Con 15-83-7474Ckvtbcl [Mass/Vol]117 mg/dLNoThe Surgical Hospital at SouthwoodsComment on above:Result Comment: The ADA and AACC recommend providing the estimated average glucose result to permit better patient understanding of their HBA1c result.Performed By: #### URNA, URTPRT, UMICAO, UEOS, UA #### [facility] [address] [place], [place] [phone] Greenhouse Grower: Ronn Arias MDHbA1c (Bld) [Mass fraction]5.7 %Normal4.0-6.0 [facility] HospitalComment on above:Performed By: #### URNA, URTPRT, UMICAO, UEOS, UA #### [facility] [address] [place], [place] [phone] Greenhouse Grower: Ronn Arias MDGlucose [Mass/Vol]117 mg/dLBON REGENCY HOSPITAL COMPANYComment on above:The ADA and AACC recommend providing the estimated average glucose result to permit better patient understanding of their HBA1c result. HbA1c (Bld) [Mass fraction]5.7 %4 - 6 %[facility] Internet PawnB[facility] Internet PawnHepatic Function Panelon [id number] [Mass/Vol]3.2 g/dLLow3.5 - 5.2 g/dLBON [facility]ENCY [facility]OSPITAL COMPANYAlbumin/Globulin [Mass ratio]1.3 {ratio}1 - 2.5B[facility]OSPITAL COMPANYALP (Bld) [Catalytic activity/Vol]98 U/L40 - 129 U/LBON [facility] COMPANYALT [Catalytic activity/Vol]202 U/LHigh5 - 41 U/LBON [facility]OSPITAL COMPANYAST [Catalytic activity/Vol]117 U/LHighNINF - 40 U/[facility] Internet PawnBilirubin [Mass/Vol]4.4 mg/dLHigh0.3 - 1.2 mg/dLB[facility] Internet PawnBilirubin, Indirect0.3 mg/dL0 - 1 mg/dLB[facility] Bilirubin.indirect [Mass/Vol]4.1 mg/dLHighNINF - 0.31 mg/dLB[facility]ITAL COMPANYFree PSA/Total PSA [Mass fraction]5.6 g/dLLow6.4 - 8.3 g/dLB[facility] COMPANYInterpretation and review of laboratory resultsAbnormalBON [facility]ENCY HOSPITAL COMPANYLactate Dehydrogenaseon [id number] [Catalytic activity/Vol]214 U/BWqtoce080-871OxtiaMemorial Health System Marietta Memorial HospitalComment on above:Performed By: #### URNA, URTPRT, UMICAO, UEOS, UA #### [facility] [address] [place] [address] [phone] Greenhouse Grower: DESTINEY Rosenthal214 U/L135 - 225 U/LBON [facility] USD MEDICAL CENTERLactate, Sepsison 66-03-0627Ednlpe Acid,Sep Wbld1.2 mmol/LNormal0.5-1.9[facility] HospitalComment on above:Performed By: #### URNA, URTPRT, UMICAO, UEOS, UA #### [facility] [address] [place], [place] 14[address] Greenhouse Grower: Frances Rosenthalctic Acid, Sepsis, Whole Blood1.2 mmol/L0.5 - 1.9 mmol/LBON [facility] PEACE HOSPITALLactic Acid,Sep Wbld 1.3 mmol/LNormal0.5-1.9[facility] HospitalComment on above: Performed By: #### URNA, URTPRT, UMICAO, UEOS, UA #### [employer] [address] [place] [address] [phone] Greenhouse Grower: Frances Rosenthalctic Acid, Sepsis, Whole Blood1.3 mmol/L0.5 - 1.9 mmol/LBON [facility] QUE[facility] OF PEACE HOSPITALLactic Acid,Sep Wbld 0.9 mmol/LNormal0.5-1.9[facility] HospitalComment on above: Performed By: #### URNA, URTPRT, UMICAO, UEOS, UA #### [employer] [address] [place] [address] [phone] Greenhouse Grower: Ronn Arias MDLactic Acid, Sepsis, Whole Blood0.9 mmol/L0.5 - 1.9 mmol/LBON [facility] PEACE HOSPITALLactic Acid,Sep Wbld 1.3 mmol/LNormal0.5-1.9[facility] HospitalComment on above: Performed By: #### URNA, URTPRT, UMICAO, UEOS, UA #### [facility] [address] [place], [place] [phone] Greenhouse Grower: Ronn Arias MDLactic Acid, Sepsis, Whole Blood1.3 mmol/L0.5 - 1.9 mmol/LBON [facility] PEACE HOSPITALLipaseon 01-01-2022 Lipase [Catalytic activity/Vol]1918 U/RFupb49-41WjwuyMemorial Health System Marietta Memorial Hospital Comment on above:Performed By: #### URJENNYFER, CONORTPRT, UMICAO, UEOS, UA #### [employer] [facility] [address] [place] [address] Greenhouse Grower: Ronn Arias MDLipase [Catalytic activity/Vol]1918 U/LHigh13 - 60 U/LBON [facility] [employer] Internet PawnLipid Panelon [id number] [Mass/Vol]103 mg/dLNINF - 200 mg/dLB[facility]ENC[facility] HOSPITAL COMPANYComment on above: Cholesterol Guidelines: <200 Desirable 200-240 Borderline >240 Undesirable Cholesterol in HDL [Mass/Vol]46 mg/dL40 - PINF mg/dLBON [facility] [employer] Comment on above: HDL Guidelines: <40 Undesirable 40-59 Borderline >59 Desirable Cholesterol in LDL [Mass/Vol]46 mg/dL0 - 130 mg/dLBON [facility] [employer] Comment on above: LDL Guidelines: <100 Desirable 100-129 Near to/above Desirable 130-159 Borderline >159 Undesirable Direct (measured) LDL and calculated LDL are not interchangeable tests. Cholesterol.total/Cholesterol in HDL [Mass ratio]2.2 {ratio}NINF - 5BON [facility] MEDICAL CENTEREveTriglyceride [Mass/Vol]53 mg/dLNINF - 150 mg/dLB[facility]Y HOSPITAL COMPANYComment on above: Triglyceride Guidelines: <150 Desirable 150-199 Borderline 200-499 High >499 Very high Based on AHA Guidelines for fasting triglyceride, January 2012. [facility] COMPANYLipid Profileon [id number] [Mass/Vol]103 mg/dLNormal<200[facility] HospitalComment on above:Result Comment: Cholesterol Guidelines: <200 Desirable 200-240 Borderline >240 UndesirablePerformed By: #### URNA, URTPRT, UMICAO, UEOS, UA #### [employer] [address] [place] [address] Greenhouse Grower: RAY Rosenthalholesterol in HDL [Mass/Vol]46 mg/dLNormal>40 [facility] HospitalComment on above:Result Comment: HDL Guidelines: <40 Undesirable 40-59 Borderline >59 DesirablePerformed By: #### URNA, URTPRT, UMICAO, UEOS, UA #### [employer] [address] [place] [address] Greenhouse Grower: RAY Rosenthalholesterol in LDL [Mass/Vol]46 mg/dLNormal0-130 [facility] HospitalComment on above:Result Comment: LDL Guidelines: <100 Desirable 100-129 Near to/above Desirable 130-159 Borderline >159 Undesirable Direct (measured) LDL and calculated LDL are not interchangeable tests.Performed By: #### URNA, URTPRT, UMICAO, UEOS, UA #### [employer] [address] [place] [address] Greenhouse Grower: Katie Rosenthalstkeron.total/Cholesterol in HDL [Mass ratio]2.2 {ratio}Normal<5[facility] HospitalComment on above: Performed By: #### URNA, URTPRT, UMICAO, UEOS, UA #### [employer] [address] [place] [address] [phone] Greenhouse Grower: Ronn Arias MDTriglyceride [Mass/Vol]53 mg/dLNormal<150MerHazel Hawkins Memorial HospitalComment on above:Result Comment: Triglyceride Guidelines: <150 Desirable 150-199 Borderline 200-499 High >499 Very high Based on AHA Guidelines for fasting triglyceride, January 2012.Performed By: #### URNA, URTPRT, UMICAO, UEOS, UA #### [facility] [address] [place] [address] Greenhouse Grower: Alban Rosenthal Profileon 41-80-3111Ptcznhm [Mass/Vol]3.2 g/dLLow3.5-5.2[facility] Medical CenterComment on above:Performed By: #### URNA, URTPRT, UMICAO, UEOS, UA #### [facility] [address] [place] [address] Greenhouse Grower: Ronn Arias MDAlbumin/Glob Ratio1.7Uosolm3.0-2.5[facility] HospitalComment on above:Performed By: #### URNA, URTPRT, UMICAO, UEOS, UA #### [facility] [address] [place] [address] Greenhouse Grower: Obdulia Rosenthalkaline Phos98 U/VEcqibd81-465VhnvrMemorial Health System Marietta Memorial HospitalComment on above:Performed By: #### URNA, URTPRT, UMICAO, UEOS, UA #### [facility] [address] [place] [address] Greenhouse Grower: Ronn Arias MDALT [Catalytic activity/Vol]202 U/LHigh5-41[facility] HospitalComment on above:Performed By: #### URNA, URTPRT, UMICAO, UEOS, UA #### [facility] [address] [place] [address] Greenhouse Grower: Ronn Arias MDAST [Catalytic activity/Vol]117 U/LHigh<40[facility] HospitalComment on above:Performed By: #### URNA, URTPRT, UMICAO, UEOS, UA #### [facility] [address] [place] [address] Greenhouse Grower: Ronn Arias MDBilirubin [Mass/Vol]4.4 mg/dLHigh0.3-1.2MDavies campusComment on above:Performed By: #### URNA, URTPRT, UMICAO, UEOS, UA #### [facility] [address] [place] [address] Greenhouse Grower: Pamela Rosenthalirubin, Indirect0.3 mg/dLNormal0.00-1.00[facility] HospitalComment on above:Performed By: #### URNA, URTPRT, UMICAO, UEOS, UA #### [facility] [address] [place] [address] Greenhouse Grower: Pamela Rosenthalirubin.indirect [Mass/Vol]4.1 mg/dLHigh<0.31 [facility] HospitalComment on above:Performed By: #### URNA, URTPRT, UMICAO, UEOS, UA #### [facility] [address] [place] [address] Greenhouse Grower: MARQUEZ Rosenthalrotein [Mass/Vol]5.6 g/dLLow6.4-8.3MDavies campusComment on above:Performed By: #### URNA, URTPRT, UMICAO, UEOS, UA #### [facility] [address] [place] [address] Greenhouse Grower: MEDARDO Rosenthal ABDOMEN WO CONTRAST MRCPon [id number] ABDOMEN WO CONTRAST MRCPEXAMINATION: MRI OF THE [...] Signed by: Aliya Salgado MD 01/01/22 Final resultNormalMerHazel Hawkins Memorial Hospital1. Christen pancreatic inflammation suggestive of acute pancreatitis. No pancreatic duct dilatation. 2. Cholelithiasis without evidence for acute cholecystitis, biliary dilatation or choledocholithiasis. [facility] RIS CONSOLIDATEDEXAMINATION: MRI OF THE ABDOMEN [...] findings do not require dedicated imaging follow-up. [facility] Aliya Summers MD - 01/01/2022 EXAMINATION: MRI OF THE [...] for acute cholecystitis, biliary dilatation or choledocholithiasis. [employer] Phone: radiology Study observation (narrative)[employer] Phone: MRI ABDOMEN WO CONTRAST MRCPOrdered By: Aliya Salgado on [id number] [employer] Phone: Magnesiumon [id number] [Mass/Vol]1.7 mg/dL Normal1.6-2.6[facility] College Medical CenterComment on above:Performed By: #### URNA, URTPRT, UMICAO, UEOS, UA #### [employer] [address] [place] [address] Greenhouse Grower: Ronn Arias MDMagnesium [Mass/Vol]1.7 mg/dL1.6 - 2.6 mg/dLBON SAN [facility] HEALTH[facility]ARE CORPORATIONRTF LogicMagnesium [Mass/Vol]1.7 mg/dLNormal1.6-2.6[facility] College Medical CenterComment on above:Performed By: #### URNA, URTPRT, UMICAO, UEOS, UA #### [employer] [address] [place] [address] Greenhouse Grower: Ronn Arias MDMagnesium [Mass/Vol]1.7 mg/dL1.6 - 2.6 mg/dLBON [employer] Mfg CoNo Panel Informationon [id number] and review of laboratory resultsAbnormalCHOATE MEMORIAL HOSPITALRTF LogicWINCHESTER MEDICAL CENTEREveCHOATE MEMORIAL HOSPITALRTF LogicInterpretation and review of laboratory resultsAbnormWagner Community Memorial Hospital [facility] [id number] Coag (PPP) [Relative time]1.2 {INR}NormalMemorial Health System Marietta Memorial HospitalComment on above:Result Comment: Therapeutic Range: Moderate Anticoagulant Intensity: INR = 2.0-3.0 High Anticoagulant Intensity: INR = 2.5-3.5Performed By: #### URNA, URTPRT, UMICAO, UEOS, UA #### [employer] [facility] [place], [place] [phone] Greenhouse Grower: LUKE Rosenthal Coag (PPP) [Time]12.7 sHigh9.1-12.3Mer[facility] College Medical CenterComment on above:Performed By: #### URNA, URTPRT, UMICAO, UEOS, UA #### [employer] [address] [place] [address] [phone] Greenhouse Grower: MARQUEZ Rosenthalhosphoruson [id number] [Mass/Vol]3.0 mg/dL2.5 - 4.5 mg/dLBON REGENCY HOSPITAL COMPANYPhosphorus, Inorg.on 01-01-2022 Phosphorus, Inorg.3.0 mg/dLNormal2.5-4.5[facility] HospitalComment on above:Performed By: #### URNA, URTPRT, UMICAO, UEOS, UA #### [employer] [address] [place] [address] [id number] Greenhouse Grower: MARQUEZ Rosenthalrocalcitoninon 46-25-4539Ddunujfkdegpi57.66 ng/mLHigh<0.09[facility] HospitalComment on above:Result Comment: Suspected Sepsis: <0.50 [...] entered into the Change in Procalcitonin Calculator (www.hrxcdr-dky-tbonoqkdve.Exinda) to determine the patient's Mortality Risk Prognosis In healthy neonates, plasma Procalcitonin (PCT) concentrations increase gradually after , reaching peak values at about 24 hours of age then decrease to normal values below 0.5 ng/mL by 48-72 hours of age.Performed By: #### URNA, URTPRT, UMICAO, UEOS, UA #### [employer] [facility] [place] [address] Greenhouse Grower: Ronn Arias MDInterpretation and review of laboratory results AbnormalRIVERSIDE BEHAVIORAL HEALTH CENTERProcalcitonin67.66 ng/mLHighNINF - 0.09 ng/mLRIVERSIDE BEHAVIORAL HEALTH CENTERComment on above: Suspected Sepsis: <0.50 ng/mL Low [...] entered into the Change in Procalcitonin Calculator (www.pjdwmc-prv-ftrcbqudlr.Exinda) to determine the patient's Mortality Risk Prognosis In healthy neonates, plasma Procalcitonin (PCT) concentrations increase gradually after , reaching peak values at about 24 hours of age then decrease to normal values below 0.5 ng/mL by 48-72 hours of age. Protein, urine, randomon 16-80-2677Pzywnff (U) [Mass/Vol]59 mg/dLBON REGENCY HOSPITAL COMPANYComment on above:No normal range established.[facility]AVIORAL HEALTH CENTERProtime-INRon 95-13-3244HPI Coag (Bld) [Relative time]1.2 {INR}[facility]ALTH CENTERComascension [facility] john hospital on above: Therapeutic Range: Moderate Anticoagulant Intensity: INR = 2.0-3.0 High Anticoagulant Intensity: INR = 2.5-3.5 Interpretation and review of laboratory resultsAbnormalRIVERSIDE BEHAVIORAL HEALTH CENTER PT Coag (PPP) [Time]12.7 sHighBON [facility] Sodium, Random Uron 78-94-1256Lteosm (U) [Moles/Vol]37 mmol/LNormalMemorial Health System Marietta Memorial HospitalComment on above:Result Comment: No normal range established.Performed By: #### URNA, URTPRT, UMICAO, UEOS, UA #### [employer] [address] [place] [address] Greenhouse Grower: GUILLERMO Rosenthalodium, urine, randomon 15-02-4978Wkeglc (U) [Moles/Vol]37 mmol/LBON REGENCY HOSPITAL COMPANYComment on above:No normal range established.[facility]AVIOR[facility] HEALTH CENTERTriglycerideon 82-80-8986Bhbivltlmyzk [Mass/Vol]58 mg/dLNINF - 150 mg/dLBON REGENCY HOSPITAL COMPANYComment on above: Triglyceride Guidelines: <150 Desirable 150-199 Borderline 200-499 High >499 Very high Based on AHA Guidelines for fasting triglyceride, January 2012. Triglycerideson 23-17-2666Gyhqgqzytspm [Mass/Vol]58 mg/dLNormal<150[facility] HospitalComment on above:Result Comment: Triglyceride Guidelines: <150 Desirable 150-199 Borderline 200-499 High >499 Very high Based on AHA Guidelines for fasting triglyceride, January 2012.Performed By: #### URNA, URTPRT, UMICAO, UEOS, UA #### [employer] [address] [place], [place] [id number] Greenhouse Grower: Mark Rosenthal 24-06-0786Eksmihee, High Sens19 ng/L Normal0-22[facility] HospitalComascension st[facility] j[facility] hospital on above:Result Comment: High Sensitivity Troponin values cannot be compared with other Troponin methodologies. Patients with high levels of Biotin oral intake (i.e >5mg/day) may have falsely decreased Troponin levels. Samples collected within 8 hours of biotin intake may require additional information for diagnosis.Performed By: #### TAMI GRAY UMICAO, UEOS, UA #### [employer] [address] [place], [place] [id number] Greenhouse Grower: Joni Rosenthal High Vxknrvrknmi82 ng/L0 - 22 ng/LBON [facility] COMPANYComascension st[facility] j[facility] hospital on above: High Sensitivity Troponin values cannot be compared with other Troponin methodologies. Patients with high levels of Biotin oral intake (i.e >5mg/day) may have falsely decreased Troponin levels. Samples collected within 8 hours of biotin intake may require additional information for diagnosis. [facility] CORPORATIONNetlift HEALTHTroponin, High Sens17 ng/LNormal0-22MerHazel Hawkins Memorial HospitalComascension st. john hospital on above:Result Comment: High Sensitivity Troponin values cannot be compared with other Troponin methodologies. Patients with high levels of Biotin oral intake (i.e >5mg/day) may have falsely decreased Troponin levels. Samples collected within 8 hours of biotin intake may require additional information for diagnosis.Performed By: #### TAMI GRAY UMICAO, UEOS, UA #### [employer] [address] [place], [place] [id number] Greenhouse Grower: Joni Rosenthal High Efzkiunggks07 ng/L0 - 22 ng/LBON [facility] on above: High Sensitivity Troponin values cannot be compared with other Troponin methodologies. Patients with high levels of Biotin oral intake (i.e >5mg/day) may have falsely decreased Troponin levels. Samples collected within 8 hours of biotin intake may require additional information for diagnosis. [facility] CORPORATIONXerico TechnologiesY HEALTHTroponin, High Sens18 ng/LNormal0-22Mer[facility] Medical CenterComment on above:Result Comment: High Sensitivity Troponin values cannot be compared with other Troponin methodologies. Patients with high levels of Biotin oral intake (i.e >5mg/day) may have falsely decreased Troponin levels. Samples collected within 8 hours of biotin intake may require additional information for diagnosis.Performed By: #### URNA, URTPRT, UMICAO, UEOS, UA #### [facility] [address] [place], [place] [id number] Greenhouse Grower: Joni Rosenthal, High Sens18 ng/LNormal0-22MerHazel Hawkins Memorial HospitalComment on above:Result Comment: High Sensitivity Troponin values cannot be compared with other Troponin methodologies. Patients with high levels of Biotin oral intake (i.e >5mg/day) may have falsely decreased Troponin levels. Samples collected within 8 hours of biotin intake may require additional information for diagnosis.Performed By: #### URNA, URTPRT, UMICAO, UEOS, UA #### [facility] [address] [place], [place] [id number] Greenhouse Grower: Joni Rosenthal High Ihwkhzrvovz90 ng/L0 - 22 ng/LBON [facility] COMPANYComascension [facility] j[facility] on above: High Sensitivity Troponin values cannot be compared with other Troponin methodologies. Patients with high levels of Biotin oral intake (i.e >5mg/day) may have falsely decreased Troponin levels. Samples collected within 8 hours of biotin intake may require additional information for diagnosis. [facility] COMPANYTropopeewee, High Drigecqmage23 ng/L0 - 22 ng/LBON [facility]OS[facility]ITAL COMPANYComment on above: High Sensitivity Troponin values cannot be compared with other Troponin methodologies. Patients with high levels of Biotin oral intake (i.e >5mg/day) may have falsely decreased Troponin levels. Samples collected within 8 hours of biotin intake may require additional information for diagnosis. Troponin, High Sens18 ng/LNormal0-22[facility] CenterComascension st[facility] on above:Result Comment: High Sensitivity Troponin values cannot be compared with other Troponin methodologies. Patients with high levels of Biotin oral intake (i.e >5mg/day) may have falsely decreased Troponin levels. Samples collected within 8 hours of biotin intake may require additional information for diagnosis.Performed By: #### URNA, URTPRT, SILVESTRE ULillyOS, UA #### [facility] [address] [place] [address] Greenhouse Grower: Joni Rosenthal, High Sens17 ng/LNormal0-22[facility] HospitalComascension st[facility] j[facility] hospital on above:Result Comment: High Sensitivity Troponin values cannot be compared with other Troponin methodologies. Patients with high levels of Biotin oral intake (i.e >5mg/day) may have falsely decreased Troponin levels. Samples collected within 8 hours of biotin intake may require additional information for diagnosis.Performed By: #### URNA, URTPRT, SILVESTRE ULillyOS, UA #### [facility] [address] [place], [place] [id number] Greenhouse Grower: Joni Rosenthal, High Uprdmyvgubk70 ng/L0 - 22 ng/LBON [facility] COMPANYComasc[facility] on above: High Sensitivity Troponin values cannot be compared with other Troponin methodologies. Patients with high levels of Biotin oral intake (i.e >5mg/day) may have falsely decreased Troponin levels. Samples collected within 8 hours of biotin intake may require additional information for diagnosis. [facility]AVIOR[facility] HEALTH CENTERTroponin, High Sens15 ng/LNormal0-22[facility] CenterComascension [facility] on above:Result Comment: High Sensitivity Troponin values cannot be compared with other Troponin methodologies. Patients with high levels of Biotin oral intake (i.e >5mg/day) may have falsely decreased Troponin levels. Samples collected within 8 hours of biotin intake may require additional information for diagnosis.Performed By: #### URNA, URTPRT, UMICAO, ULillyOS, UA #### [facility] [address] [place], [place] [id number] Greenhouse Grower: Joni Rosenthal, High Iderfdsxfbh32 ng/L0 - 22 ng/LBON [facility] on above: High Sensitivity Troponin values cannot be compared with other Troponin methodologies. Patients with high levels of Biotin oral intake (i.e >5mg/day) may have falsely decreased Troponin levels. Samples collected within 8 hours of biotin intake may require additional information for diagnosis. [facility] ShoutlyUNIVERSITY HOSPITALS GEAUGA MEDICAL CENTERTroponin, High Yrnlkaqyalm84 ng/L0 - 22 ng/LBON [facility] COMPANYComment on above: High Sensitivity Troponin values cannot be compared with other Troponin methodologies. Patients with high levels of Biotin oral intake (i.e >5mg/day) may have falsely decreased Troponin levels. Samples collected within 8 hours of biotin intake may require additional information for diagnosis. [facility] CENTERUA w/Reflex Cultureon 49-90-7064Vvxsyywam, SemiQt,UrMOD AbnormalNEGMerHazel Hawkins Memorial HospitalComment on above:Performed By: #### URNA, URTPRT, UMICAO, UEOS, UA #### [facility] [address] [place] [address] Greenhouse Grower: Jeanette Rosenthal UrineSMALLAbnormalNEGMemorial Health System Marietta Memorial HospitalComment on above:Performed By: #### URNA, URTPRT, UMICAO, UEOS, UA #### [facility] [address] [place] [address] Greenhouse Grower: RAY Rosenthallarity (U)TurbidAbnormalCLEARMercRobert F. Kennedy Medical CenterComment on above:Performed By: #### URNA, URTPRT, UMICAO, UEOS, UA #### [facility] [address] [place] [address] Greenhouse Grower: RAY Rosenthalolor (U)Dark YellowAbnormalYELMerHazel Hawkins Memorial HospitalComment on above:Performed By: #### URNA, URTPRT, UMICAO, UEOS, UA #### [facility] [address] [place] [address] Greenhouse Grower: Josr Rosenthalose Ql (U)NegativeNormalNEGMerHazel Hawkins Memorial HospitalComment on above:Performed By: #### URNA, URTPRT, UMICAO, UEOS, UA #### [facility] [address] [place] [address] Greenhouse Grower: Ronn Arias MDKetones Ql (U)NegativeNormalNEGMemorial Health System Marietta Memorial HospitalComment on above:Performed By: #### URNA, URTPRT, UMICAO, UEOS, UA #### [facility] [address] [place] [address] Greenhouse Grower: Ronn Arias MDLeukocyte esterase Test strip Ql (U)Negative NormalNEGMemorial Health System Marietta Memorial HospitalComment on above:Performed By: #### URNA, URTPRT, UMICAO, UEOS, UA #### [facility] [address] [place] [address] Greenhouse Grower: Rupal Rosenthaltrite,UrNegativeNormalNEGMemorial Health System Marietta Memorial HospitalComment on above:Performed By: #### URNA, URTPRT, UMICAO, UEOS, UA #### [facility] [address] [place] [address] Greenhouse Grower: MARQUEZ Rosenthal,Ur5.2Kjhosw3.0-8.0[facility] HospitalComment on above:Performed By: #### URNA, URTPRT, UMICAO, UEOS, UA #### [facility] [address] [place] [address] Greenhouse Grower: Yoko Rosenthal Ql (U)1+AbnormalNEGMemorial Health System Marietta Memorial HospitalComment on above:Performed By: #### URNA, URTPRT, UMICAO, UEOS, UA #### [facility] [address] [place] [address] Greenhouse Grower: GUILLERMO Rosenthalpec. Weston,Ur1.508Gjtwnt1.005-1.030[facility] HospitalComment on above:Performed By: #### URNA, URTPRT, UMICAO, UEOS, UA #### [facility] [address] [place], [place] [phone] Greenhouse Grower: Ronn Arias MDUrobilkeanugen,UrNormalNormalNORMMercy College Medical CenterComment on above:Performed By: #### URNA, URTPRT, UMICAO, UEOS, UA #### [facility] [address] [place], [place] [phone] Greenhouse Grower: Ronn Arias MDUrinalysis with Reflex to Cultureon 01-01-2022 Bilirubin UrineMODAbnormalNEGATIVEBON SECOURS MERCY HEALTHColor, UADark Yellow AbnormalYellowBON SECOURS MERCY HEALTHGlucose, UrNegativeNEGATIVEBON SECOURS MERCY HEALTHInterpretation and review of laboratory resultsAbnormalBON SECOURS MERCY HEALTHKetones Ql (U)NegativeNEGATIVEBON SECOURS MERCY HEALTHLeukocyte esterase Test strip Ql (U)NegativeNEGATIVEBON SECOURS MERCY HEALTHNitrite, Urine NegativeNEGATIVEBON SECOURS MERCY HEALTHpH, UA5.05 - 8[facility] Protein, UA1+AbnormalNEGATIVEBON SECOURS MERCY HEALTHSpecific [place], UA1.013 1.005 - 1.03B[facility] HEALTHTurbidity UATurbidAbnormalClearBON SECOURS MERCY HEALTHUrine HgbSMALLAbnormalNEGATIVEBON SECOURS MERCY HEALTHUrobilinogen, UrineNormalNormalBON SECOURS MERCY HEALTHBON [facility] MERCY HEALTHUrinalysis, Microon 73-00-2351Johcu UA20 TO 50B[facility] MER[facility] HEALTHCasts UACOARSELY GRANULARBON SECOURS MERCY HEALTHEpithelial Cells UA5 TO 10B[facility] MERCY HEALTHRBC, UA10 TO 20B[facility] HEALTHWBC, UA10 TO 20B[facility] HEALTHBON SECOU[facility] MERCY HEALTHUrinalysis,Microon 67-95-0590Fibvf22 TO 50Normal 0-2[facility] College Medical CenterComment on above:Result Comment: COARSELY GRANULARPerformed By: #### URNA, URTPRT, UMICAO, UEOS, UA #### [facility] [address] [place] [address] Greenhouse Grower: Ronn Arias MDEpithelial cells LM Ql (Urine sed)5 TO 10Normal 0-5[facility] HospitalComment on above:Performed By: #### URNA, URTPRT, UMICAO, UEOS, UA #### [facility] [address] [place] [address] Greenhouse Grower: Ronn Arias MDUrine RBC's10 TO 27Dnbawn4-4Fvwrv College Medical CenterComment on above:Performed By: #### URNA, URTPRT, UMICAO, UEOS, UA #### [facility] [address] [place] [address] Greenhouse Grower: Chrissy Rosenthal WBC's10 TO 02Kkkaqt1-4UovgeMemorial Health System Marietta Memorial HospitalComment on above:Performed By: #### URNA, URTPRT, UMICAO, UEOS, UA #### [facility] [address] [place] [address] Greenhouse Grower: GIANLUCA Rosenthal AUTO DIFFon 30-77-2962QAJG #0.1 103/ulNormal 0.0-0.1[facility] CenterComment on above:Performed By: #### HSTROPN #### [facility] [address] [place] [address] Dr. Kulwant Starksphils/100 WBC (Bld)0.2 %Normal0.2-2.0The [facility] Comment on above:Performed By: #### HSTROPN #### [facility] [address] [place] [address] Dr. Kulwant Radford #0.0 103/ulNormal0.0-0.7The [facility] CenterComment on above: Performed By: #### HSTROPN #### [facility] [address] [address] [address] Kulwant Sellersosinophils/100 WBC (Bld)0.0 %Critically low0.9-7.0The [facility] CenterComment on above:Performed By: #### HSTROPN #### [facility] [address] [place] [address] Dr. Kulwant Sellersrythrocyte distribution width (RBC) [Ratio]14.4 %Ggrodk36.0-15.0 The [facility] CenterComment on above:Performed By: #### HSTROPN #### [facility] [address] [place] [address] Dr. Kulwant BrennanHematocrit (Bld) [Volume fraction]37.9 %Critically low42.0-54.0 [facility] CenterComment on above:Performed By: #### HSTROPN #### [facility] [address] [place] [address] Dr. Kulwant BrennanHemoglobin (Bld) [Mass/Vol]12.2 g/dLCritically low14.0-18.0[facility] CenterComment on above:Performed By: #### HSTROPN #### [facility] [address] [place] [address] Dr. Kulwant Coronado #0.16 10e3/ulCritically high0.00-0.03[facility] Comment on above:Performed By: #### HSTROPN #### [facility] [address] [place] [address] Dr. Kulwant Coronado %0.6 %Critically high0.0-0.5The [facility] Glenbeighment on above:Performed By: #### HSTROPN #### [facility] [address] [place] [address] Dr. Kulwant Griffith #0.7 103/ulCritically low1.2-3.8The [facility] Comment on above:Performed By: #### HSTROPN #### [facility] [address] [place] [address] Dr. Kulwant Hallmphocytes/100 WBC (Bld)2.9 %Critically low20.5-60.0The [facility] CenterComment on above:Performed By: #### HSTROPN #### [facility] [address] [place] [address] Dr. Kulwant Camacho DIFF REQNONormalThe [facility] CenterComment on above: Performed By: #### HSTROPN #### [facility] [address] [place] [address] Dr. Kulwant Wilkinson (RBC) [Entitic mass]27.7 xqTgovej95.9-34.0The [facility] CenterComment on above:Performed By: #### HSTROPN #### [facility] [address] [place] [address] Dr. Kulwant Wilkinson (RBC) [Mass/Vol]32.2 g/iLSszhzp67.9-35.2The [facility] CenterComment on above:Performed By: #### HSTROPN #### [facility] [address] [place] [address] Dr. Kulwant Foley (RBC) [Entitic vol]86.1 lHQtfbqi17.0-94.0The [facility] CenterComment on above:Performed By: #### HSTROPN #### [facility] [address] [place] [address] Dr. Kulwant Aguirre #1.6 103/ulCritically high0.3-0.8ThWestern Reserve Hospital Comment on above:Performed By: #### HSTROPN #### [facility] [address] [place] [address] Dr. Kulwant Malcolmocytes/100 WBC (Bld)6.4 %Normal1.7-12.0[facility] Comment on above:Performed By: #### HSTROPN #### [facility] [address] [place] [address] Dr. Kulwant Mena #22.8 103/ulCritically high1.4-6.5The [facility] Comment on above:Performed By: #### HSTROPN #### [facility] [address] [place] [address] Dr. Kulwant Plasenciautrophils/100 WBC (Bld)89.9 %Critically high43.0-75.0The [facility] CenterComment on above:Performed By: #### HSTROPN #### [facility] [address] [place] [address] Dr. Kulwant Díazlet mean volume (Bld) [Entitic vol]10.0 fLNormal9.5-13.5The [facility] CenterComment on above:Performed By: #### HSTROPN #### [facility] [address] [place] [address] Dr. Kulwant BrennanPLT211 103/dxSzuooz226-835Ptw [facility] CenterComment on above: Performed By: #### HSTROPN #### [facility] [address] [place] [address] Dr. Kulwant BrennanRBC4.40 106/ulCritically low4.70-6.10The [facility] CenterComment on above:Performed By: #### HSTROPN #### [facility] [address] [place] [address] Dr. Kulwant BrennanWBC25.3 103/ulCritically high4.0-11.0The [facility] CenterComment on above:Performed By: #### HSTROPN #### [facility] [address] [place] [address] Dr. Kulwant Mukherjee BLOODon 41-56-3245Ucozvpsojzt examination of blood, cultureCulture Observations: NO GROWTH AT 5 DAYS.NormalThe [facility] System Glenbeighment on above:Performed By: #### BLDCX2 ####[facility] [address] [address]Dr. Kulwant BrennanPerformed By: #### BLDCX1 ####[facility] [address] [place], [place] [address]Dr. Kulwant Mukherjee URINE on 00-79-5621KFMJBZH URINECulture Observations: MODERATE GROWTH OF MIXED SKIN MITA. NO POTENTIAL PATHOGENS SEEN.NormalThe [facility] CenterComment on above:Performed By: #### URCX ####[facility] [address] [id number]. Kulwant ChangCovid-19 PCR (CVDTB)on 60-49-6159ZFJV-CoV-2 (COVID-19) RNA MIKE+probe Ql (Unsp spec)Not detectedNormalNOT DETECTEDThe [facility] CenterComment on above:Result Comment: When diagnostic testing is [...] for this test is supported by the [employer] Inspector of Health and Human Service's declaration that [...] no longer be used).Performed By: #### CVDTBH ####[facility] [address] [place], [place] [address]Dr. Kulwant ChangER URINE PROFILEon 65-83-1506Dipxfwrga Ql (U)MODERATE AbnormalNEGATIVEThe [facility] CenterComment on above:Performed By: #### ANA LAURA IQBAL ####[facility] [address] [place] [address]Bx. Kulwant ChangClarity (U)CLEARNormalCLEARThe [facility] CenterComment on above:Performed By: #### ANA LAURA IQBAL ####[facility] [address] [place], [place] [id number]. Kulwant ChangColor (U)DK. ORANGEAbnormalYELLOW The [facility] CenterComment on above:Performed By: #### ANA LAURA IQBAL ####[facility] [address] [place], [place] [address]Dr. Yilan ChangERUAHDA micrscopic examination will be performed if indicated.Normal The [facility] CenterComment on above:Performed By: #### ANA LAURA IQBAL ####[facility] [address] [address]Dr. Yilan ChangGlucose Ql (U)NegativeNormalNEGATIVEUpper Valley Medical CenterComment on above:Performed By: #### ANA LAURA IQBAL ####[facility] [address] [address]Dr. Yilan ChangHemoglobin Ql (U)SMALLAbnormal NEGATIVEUpper Valley Medical CenterComment on above:Performed By: #### ANA LAURA IQBAL ####[facility] Tom[address]sobz[address] Yilan ChangKetones Ql (U)NegativeNormalNEGATIVEUpper Valley Medical CenterComment on above:Performed By: #### ANA LAURA IQBAL ####[facility] [address]bvafm[address] Yilan ChangLEUKOCYTESNegativeNormalNEGATIVEUpper Valley Medical CenterComment on above:Performed By: #### ANA LAURA IQBAL ####[facility] [address] Yilan Brennan Nitrite Ql (U)PositiveAbnormalNEGATIVEUpper Valley Medical CenterComment on above: Performed By: #### ANA LAURA IQBAL ####[facility] [address] [address]Dr. Yilan ChangpH (U)5.5 [pH]Normal5-9[facility] CenterComment on above:Performed By: #### ANA LAURA IQBAL ####[facility] [address] [address]Dr. Yilan ChangProtein (U) [Mass/Vol]100 mg/dLAbnormalNEGATIVE/ TRACEThe [facility] CenterComment on above: Performed By: #### ANA LAURA IQBAL ####[facility] [address]irttct[address] Kulwant BrennanSPEC GRAVITY1.241Jnkalf9.005-<=1.025The [facility] CenterComment on above:Performed By: #### ANA LAURA IQBAL ####[facility] [address] [address]Dr. Kulwant BrennanUR MICRO INDINDICATEDNormalThe [facility] CenterComment on above:Performed By: #### ANA LAURA IQBAL ####[facility] [id number] [address]Dr. Kulwant BrennanUrobilinogen Qn (U)1.0 {Luis'U}/dLNormal0.2 - 1.0The [facility] CenterComment on above:Performed By: #### ANA LAURA IQBAL ####[facility] [id number] Kulwant Brennan LACTATE/LACTIC ACIDon 04-88-5147Iwqzows [Moles/Vol]1.6 mmol/LNormal0.4-1.9The [facility] CenterComment on above:Performed By: #### LACT #### [facility] [address] [place] [address] Dr. Kulwant BrnenanLactate [Moles/Vol]2.4 mmol/LCritically high0.4-1.9The [facility] CenterComment on above:Performed By: #### LACT ####[facility] [id number] [place], [place] [address]Dr. Kulwant BrennanLIPASEon 76-22-7759Ncclpd [Catalytic activity/Vol]6610.0 U/LCritically high73.0-393.0The [facility] CenterComment on above:Performed By: #### LACT #### [facility] [address] [place] [address] Dr. Kulwant Lambert 14(COMP METB)on 45-62-4801Tigvyks [Mass/Vol]3.3 g/dL Critically low3.4-5.0The [facility] CenterComment on above:Performed By: #### LACT #### [facility] [address] [address] [address] Kulwant BrennanAlbumin/Globulin [Mass ratio]0.9 {ratio}NormalThe [facility] CenterComment on above:Performed By: #### LACT #### [facility] [address] [address] [address] Kulwant MedinaP [Catalytic activity/Vol]124 U/LCritically honq32-757Oav [facility] CenterComment on above:Performed By: #### LACT #### [facility] [address] [address] [address] Kulwant MedinaT [Catalytic activity/Vol]327 U/LCritically thtb44-15Nno [facility] CenterComment on above:Performed By: #### LACT #### [facility] [address] [place] [address] Dr. Kulwant Cardozaon gap [Moles/Vol]15.6 mmol/LNormalThe [facility] Comment on above:Performed By: #### LACT #### [facility] [address] [place] [address] Dr. Kulwant BrennanAST [Catalytic activity/Vol]229 U/LCritically dxgb06-16Cwb [facility] CenterComment on above:Performed By: #### LACT #### [facility] [address] [place] [address] Dr. Kulwant BrennanBilirubin [Mass/Vol]6.2 mg/dLCritically high0.2-1.0The [facility] CenterComment on above:Performed By: #### LACT #### [facility] [address] [place] [address] Dr. Kulwant BrennanCalcium [Mass/Vol]7.2 mg/dLCritically low8.5-10.1The [facility] CenterComment on above:Performed By: #### LACT #### [facility] [address] [place] [address] Dr. Kulwant BrennanChloride [Moles/Vol]102 mmol/NJxwmzf44-437Xyc [facility] Comment on above:Performed By: #### LACT #### [facility] [address] [place] [address] Dr. Kulwant BrennanCO2 [Moles/Vol]26.4 mmol/YJnlwzn16.0-32.0The [facility] Comment on above:Performed By: #### LACT #### [facility] [address] [address] [address] Kulwant BrennanCreatinine [Mass/Vol]3.33 mg/dLCritically high0.70-1.30The [facility] CenterComment on above:Performed By: #### LACT #### [facility] [address] [place] [address] Dr. Blum ChangEGFR-AF VUTJKKYZ82 mL/min/1.75f7Ilcpmhxmds low>=60The [facility] CenterComment on above:Performed By: #### LACT #### [facility] [address] [place] [address] Dr. Kulwant SellersGFR-NON AF QOCCZMOZ20 mL/min/1.00x2Opzlekuvbq low>=60The [facility] CenterComment on above:Performed By: #### LACT #### [facility] [address] [place] [address] Dr. Kulwant BrennanGlobulin (S) [Mass/Vol]3.8 g/dLNormalThe [facility] CenterComment on above:Performed By: #### LACT #### [facility] [address] [place] [address] Dr. Kulwant BrennanGlucose [Mass/Vol]245 mg/dLCritically blty46-072Zpm [facility] CenterComment on above:Performed By: #### LACT #### [facility] [address] [place] [address] Dr. Kulwant BrennanPotassium [Moles/Vol]5.0 mmol/LNormal3.5-5.1The [facility] Comment on above:Performed By: #### LACT #### [facility] [address] [place] [address] Dr. Kulwant BrennanProtein [Mass/Vol]7.1 g/dLNormal6.4-8.2The [facility] Comment on above:Performed By: #### LACT #### [facility] [address] [address] [address] Kulwant Culpdium [Moles/Vol]139 mmol/FIiixyv914-749Twx [facility] Comment on above:Performed By: #### LACT #### [facility] [address] [place] [address] Dr. Kulwant Scott nitrogen [Mass/Vol]51.0 mg/dLCritically high7.0-18.0The [facility] CenterComment on above:Performed By: #### LACT #### [facility] [address] [place] [address] Dr. Kulwant Scott nitrogen/Creatinine [Mass ratio]15.3 mg/mgNoMartin Memorial HospitalComment on above:Performed By: #### LACT #### [facility] [address] [place] [address] Dr. Kulwant Wharton 53-74-7123UOH Coag (PPP) [Relative time]1.17 {INR} NormalThe [facility] CenterComment on above:Performed By: #### HSTROPN #### [facility] [address] [place] [address] Dr. Kulwant Guidry GUIDELINESSEE Twin City HospitalComment on above:Result Comment: DESIRED INR: 2.0 - 3.0 CONDITIONS NOT LISTED BELOW 2.5 - 3.5 FOR PROSTHETIC HEART VALVE REPLACEMENT 2.5 - 3.5 RECURRENT THROMBOSIS Performed By: #### HSTROPN #### [facility] [address] [place] [address] Dr. Kulwant BrennanPT Coag (PPP) [Time]12.5 sCritically high9.0-11.6The [facility] CenterComment on above:Performed By: #### HSTROPN #### [facility] [address] [place] [address] Dr. Kulwant Avelar 90-06-6119vCLJ Coag (Bld) [Time]33.3 fQuynbg19.3-36.2The [facility] CenterComment on above:Performed By: #### PTT, PT ####[facility] [address] [address]Dr. Kulwant Brennan TROPONIN, HIGH SENSITIVITYon 25-70-9934DOZJQC4.0 pg/mLNormal4.0-76.1The [facility] on above:Result Comment: CUT-OFF POINTS HAVE BEEN ESTABLISHED BASED ON THE FOURTH UNIVERSAL DEFINITIONS OF MYOCARDIAL INFARCTION. THE UPPER REFERENCE LIMIT (URL) OF TROPONIN, DEFINED THE 99TH PERCENTILE OF cTnI DISTRIBUTION IN A REFERENCE POPULATION, HAS BEEN CONFIRMED THE DECISION THRESHOLD FOR HI DIAGNOSIS.Performed By: #### LACT #### [facility] [address] [address] [address] Kulwant BrennanURINE MICROSCOPIC ONLYon 80-05-4820XHUFTZZIJMIIFDwyntmhtNODE SEEN The [facility] CenterComasc[facility] on above:Performed By: #### ANA LAURA IQBAL ####[facility] [id number] Kulwant BrennanBacteria identified Cx Nom (U)INDICATEDBrecksville VA / Crille Hospital Comment on above:Performed By: #### MICHELLE IQBALRO ####[facility] [address] [address]Dr. Kulwant BrennanCASTSEEN AbnormalNONE SEENThe [facility] CenterComascension [facility] on above:Performed By: #### MICHELLE IQBALRO ####[facility] [address] [address]Dr. Kulwant BrennanCOARSE GRANULAR CASTFEWBrecksville VA / Crille HospitalComment on above:Performed By: #### MICHELLE IQBALRO ####[facility] [address] [address]Dr. Kulwant BrennanCrystals LM Nom (Urine sed)NONE SEENNormalNONE SEENUpper Valley Medical CenterComascension st. [facility] hospital on above:Performed By: #### MICHELLE IQBALRO ####[facility] [address] [address]Dr. Kulwant ChangEpithelial cells LM Ql (Urine sed)FEWAbnormalNONE SEEN /RARE The [facility] CenterComasc[facility] on above:Performed By: #### SERGEY IQBALICRO ####[facility] [address] [place], [place]Dr. Kulwant BrennanMUCOUSTRACEAbnormalNONE SEENThe [facility] CenterComment on above: Performed By: #### ANA LAURA IQBAL ####[facility] [address] [place], [place]Dr. Kulwant XimwyDXE9-00Wuzjpwcw1-5Ktt [facility] Comment on above:Performed By: #### ANA LAURA IQBAL ####[facility] [address] [place], [place]Dr. Kulwant ChangWBC0-2Abnormal NONE SEENThe [facility] CenterComment on above:Performed By: #### ANA LAURA IQBAL ####[facility] [address] [place], [place]Dr. Kulwant BrennanUS SINGLE QUAD RT UPPERon 75-15-9625SH SINGLE QUAD RT UPPERUltrasound abdomen right upper [...] authenticated by: DAVIE NARANJO Date: 2021-12-31 19:27NormalThe [facility] CenterAMYLASEon 30-32-2630Nmrqetg [Catalytic activity/Vol]47 U/L Tiepxn86-188EnpUpper Valley Medical CenterComment on above:Performed By: #### HSTROPN #### [facility] [address] [place] [address] AUTO DIFFon 92-44-0639JTUV #0.0 103/ulNormal0.0-0.1The [facility] CenterComment on above:Performed By: #### LACT #### [facility] [address] [place] [address] Dr. Kulwant BrennanBasophils/100 WBC (Bld)0.5 %Normal0.2-2.0[facility] Comment on above:Performed By: #### LACT #### [facility] [address] [place] [address] Dr. Kulwant Radford #0.3 103/ulNormal0.0-0.7The [facility] CenterComment on above: Performed By: #### LACT #### [facility] [address] [place] [address] Dr. Kulwant Sellersosinophils/100 WBC (Bld)3.3 %Normal0.9-7.0[facility] Comment on above:Performed By: #### LACT #### [facility] [address] [place] [address] Dr. Kulwant Sellersrythrocyte distribution width (RBC) [Ratio]14.1 %Welolh73.0-15.0 [facility] CenterComment on above:Performed By: #### LACT #### [facility] [address] [place] [address] Dr. Kulwant BrennanHematocrit (Bld) [Volume fraction]38.8 %Critically low42.0-54.0 [facility] CenterComment on above:Performed By: #### LACT #### [facility] [address] [place] [address] Dr. Kulwant BrennanHemoglobin (Bld) [Mass/Vol]12.4 g/dLCritically low14.0-18.0The [facility] CenterComment on above:Performed By: #### LACT #### [facility] [address] [address] [address] Kulwant Coronado #0.04 10e3/ulCritically high0.00-0.03The [facility] Comment on above:Performed By: #### LACT #### [facility] [address] [address] [address] Kulwant Coronado %0.5 %Normal0.0-0.5The [facility] CenterComment on above: Performed By: #### LACT #### [facility] [address] [place] [address] Dr. Kulwant Griffith #1.9 103/ulNormal1.2-3.8The [facility] CenterComment on above:Performed By: #### LACT #### [facility] [address] [place] [address] Dr. Kulwant Méndezhocytes/100 WBC (Bld)23.9 %Djqcjj34.5-60.0The [facility] CenterComment on above:Performed By: #### LACT #### [facility] [address] [place] [address] Dr. Kulwant KaplanUAL DIFF REQNONormalThe [facility] CenterComment on above: Performed By: #### LACT #### [facility] [address] [address] [address] Kulwant Wilkinson (RBC) [Entitic mass]27.5 tySrgtzg58.9-34.0The [facility] CenterComment on above:Performed By: #### LACT #### [facility] [address] [address] [address] Kulwant Wilkinson (RBC) [Mass/Vol]32.0 g/dHEfztwy68.9-35.2The [facility] CenterComment on above:Performed By: #### LACT #### [facility] [address] [place] [address] Dr. Kulwant WilkinsonV (RBC) [Entitic vol]86.0 pCRbhcnw87.0-94.0The [facility] CenterComment on above:Performed By: #### LACT #### [facility] [address] [place] [address] Dr. Kulwant Aguirre #0.9 103/ulCritically high0.3-0.8The [facility] Comment on above:Performed By: #### LACT #### [facility] [address] [place] [address] Dr. Kulwant Malcolmocytes/100 WBC (Bld)11.8 %Normal1.7-12.0[facility] Comment on above:Performed By: #### LACT #### [facility] [address] [place] [address] Dr. Kulwant Mena #4.7 103/ulNormal1.4-6.5The [facility] CenterComment on above:Performed By: #### LACT #### [facility] [address] [place] [address] Dr. Kulwant Plasenciautrophils/100 WBC (Bld)60.0 %Pfhsfs73.0-75.0The [facility] CenterComment on above:Performed By: #### LACT #### [facility] [address] [place] [address] Dr. Kulwant Díazlet mean volume (Bld) [Entitic vol]10.0 fLNormal9.5-13.5The [facility] CenterComment on above:Performed By: #### LACT #### [facility] [address] [place] [address] Dr. Kulwant BrennanPLT222 103/hiEhqhjl234-707Zew [facility] CenterComment on above: Performed By: #### LACT #### [facility] [address] [place] [address] Dr. Kulwant BrennanRBC4.51 106/ulCritically low4.70-6.10The [facility] CenterComment on above:Performed By: #### LACT #### [facility] [address] [place], [place] [address] Dr. Kulwant BrennanWBC7.9 103/ulNormal4.0-11.0The [facility] CenterComment on above: Performed By: #### LACT #### [facility] [address] [place], [place] [address] Dr. Kulwant BrennanCT ABD/PELV W CONon 61-21-5351VX ABD/PELV W CONEXAMINATION: CT ABD/PELV W CON HISTORY: UNSPECIFIED ABDOMINAL PAIN COMPARISON: 12/29/2021. TECHNIQUE: CT of abdomen/pelvis with intravenous contrast. Dose reduction techniques were achieved by using automated exposure control and/or adjustment of mA and/or kV according to patient size and/or use of iterative reconstruction technique. FINDINGS: Diabetologist: No pertinent findings, which are not already [...] Electronically authenticated by: ALIYA AISHWARYA Date: 2021-12-30 21:29[facility] URINE PROFILEon 57-51-8064Eobzagcbl Ql (U)NegativeNormal NEGATIVEUpper Valley Medical CenterComment on above:Performed By: #### LACT #### [facility] [address] [address] [address] Kulwant Heredia (U)CLEARNormalCLEARUpper Valley Medical CenterComment on above: Performed By: #### LACT #### [facility] [address] [address] [address] Kulwant Queen ()LT. YELLOWNormalYELLOWUpper Valley Medical CenterComment on above:Performed By: #### LACT #### [facility] [address] [place] [address] Dr. Kulwant Jarrett micrscopic examination will be performed if indicated. NormalUpper Valley Medical CenterComment on above:Performed By: #### LACT #### [facility] [address] [address] [address] Kulwant BrennanGlucose Ql (U)NegativeNormalNEGATIVEUpper Valley Medical CenterComment on above:Performed By: #### LACT #### [facility] [address] [address] [address] Kulwant BrennanHemoglobin Ql (U)NegativeNormalNEGATIVEKindred Hospital Dayton on above:Performed By: #### LACT #### [facility] [address] [address] [address] Kulwant BrennanKetones Ql (U)NegativeNormalNEGATIVEUpper Valley Medical CenterComment on above:Performed By: #### LACT #### [facility] [address] [address] [address] Kulwant BrennanLEUKOCYTESNegativeNormalNEGATIVEUpper Valley Medical CenterComment on above:Performed By: #### LACT #### [facility] [address] [address] [address] Kulwant BrennanNitrite Ql (U)NegativeNormalNEGATIVEThe [facility] CenterComment on above:Performed By: #### LACT #### [facility] [address] [place] [address] Dr. Kulwant BrennanpH (U)5.5 [pH]Normal5-9The [facility] CenterComment on above: Performed By: #### LACT #### [facility] [address] [place] [address] Dr. Kulwant BrennanSPEC GRAVITY>=1.652Iakghhow1.005-<=1.025The [facility] Comment on above:Performed By: #### LACT #### [facility] [address] [place] [address] Dr. Kulwant French PROTEINNegativeNormalNEGATIVE/ TRACEThe [facility] Comment on above:Performed By: #### LACT #### [facility] [address] [place] [address] Dr. Kulwant Bullock MICRO INDNOT INDICATEDNormalThe [facility] CenterComment on above:Performed By: #### LACT #### [facility] [address] [place] [address] Dr. Kulwant BrennanUrobilinogen Qn (U)0.2 {Luis'U}/dLNormal0.2 - 1.0The [facility] CenterComment on above:Performed By: #### LACT #### [facility] [address] [place] [address] Dr. Kulwant BrennanLIPASEvicky 63-31-8577Cxdgrs [Catalytic activity/Vol]105.0 U/LNormal 73.0-393.0The [facility] CenterComment on above:Performed By: #### HSTROPN #### [facility] [address] [place] [address] Dr. Kulwant Smith PROFILEon 02-79-3346Ewlucom [Mass/Vol]3.8 g/dLNormal3.4-5.0 The [facility] CenterComment on above:Performed By: #### HSTROPN #### [facility] [address] [place] [address] Dr. Kulwant BrennanAlbumin/Globulin [Mass ratio]1.0 {ratio}NormalThe [facility] CenterComment on above:Performed By: #### HSTROPN #### [facility] [address] [place] [address] Dr. Kulwant Ga [Catalytic activity/Vol]67 U/XJgcuyx52-648Nlx [facility] CenterComment on above:Performed By: #### HSTROPN #### [facility] [address] [place] [address] Dr. Kulwant Bush [Catalytic activity/Vol]31 U/NZozghu75-81Ojs [facility] CenterComment on above:Performed By: #### HSTROPN #### [facility] [address] [place] [address] Dr. Kulwant BrennanAST [Catalytic activity/Vol]21 U/CIfhgte75-55Rww [facility] CenterComment on above:Performed By: #### HSTROPN #### [facility] [address] [place] [address] Dr. Kulwant Roberts, CONJUGATED0.1 mg/dLNormal0.0-0.2[facility] Comment on above:Performed By: #### HSTROPN #### [facility] [address] [place] [address] Dr. Kulwant Goreirubin [Mass/Vol]0.5 mg/dLNormal0.2-1.0The [facility] Comment on above:Performed By: #### HSTROPN #### [facility] [address] [place] [address] Dr. Kulwant BrennanGlobulin (S) [Mass/Vol]3.7 g/dLNormalThe [facility] CenterComment on above:Performed By: #### HSTROPN #### [facility] [address] [place] [address] Dr. Kulwant BrennanProtein [Mass/Vol]7.5 g/dLNormal6.4-8.2The [facility] Comment on above:Performed By: #### HSTROPN #### [facility] [address] [place] [address] Dr. Kulwant RicoF CHEM 8 (BAS METB)on 94-51-2469Pxosc gap [Moles/Vol]14.5 mmol/LNormalUpper Valley Medical CenterComment on above:Performed By: #### HSTROPN #### [facility] [address] [address] [address] Kulwant BrennanCalcium [Mass/Vol]7.5 mg/dLCritically low8.5-10.1The [facility] CenterComment on above:Performed By: #### HSTROPN #### [facility] [address] [address] [address] Kulwant BrennanChloride [Moles/Vol]104 mmol/TBfelzi38-637RbsUpper Valley Medical Center Comment on above:Performed By: #### HSTROPN #### [facility] [address] [address] [address] Kulwant BrennanCO2 [Moles/Vol]26.8 mmol/TNsmocj10.0-32.0[facility] Comment on above:Performed By: #### HSTROPN #### [facility] [address] [address] [address] Kulwant BrennanCreatinine [Mass/Vol]1.31 mg/dLCritically high0.70-1.30The [facility] CenterComment on above:Performed By: #### HSTROPN #### [facility] [address] [address] [address] Kulwant SellersGFR-AF CITIZEN OF [place]>60Normal>=60The [facility] CenterComment on above:Performed By: #### HSTROPN #### [facility] [address] [address] [address] Kulwant SellersGFR-NON AF RPTFPUOD74 mL/min/1.92z6Gbdaaxqthj low>=60The [facility] CenterComment on above:Performed By: #### HSTROPN #### [facility] [address] [address] [address] Kulwant BrennanGlucose [Mass/Vol]97 mg/eOSbmusb30-212Ybe [facility] Comment on above:Performed By: #### HSTROPN #### [facility] [address] [place] [address] Dr. Kulwant BrennanPotassium [Moles/Vol]4.3 mmol/LNormal3.5-5.1[facility] Comment on above:Performed By: #### HSTROPN #### [facility] [address] [place] [address] Dr. Kulwant BrennanSodium [Moles/Vol]141 mmol/RDcejvy547-238Nyk [facility] Comment on above:Performed By: #### HSTROPN #### [facility] [address] [place] [address] Dr. Kulwant BrennanUrea nitrogen [Mass/Vol]25.0 mg/dLCritically high7.0-18.0[facility] CenterComment on above:Performed By: #### HSTROPN #### [facility] [address] [place] [address] Dr. Kulwant Scott nitrogen/Creatinine [Mass ratio]19.1 mg/mgNormalThWestern Reserve HospitalComment on above:Performed By: #### HSTROPN #### [facility] [address] [place] [address] AUTO DIFFon 16-32-9246OPTC #0.0 103/ulNormal0.0-0.1[facility] CenterComment on above:Performed By: #### HSTROPN #### [facility] [address] [place] [address] Dr. Kulwant BrennanBapkphils/100 WBC (Bld)0.5 %Normal0.2-2.0[facility] Comment on above:Performed By: #### HSTROPN #### [facility] [address] [place] [address] Dr. Kulwant Radford #0.3 103/ulNormal0.0-0.7The [facility] CenterComment on above: Performed By: #### HSTROPN #### [facility] [address] [place] [address] Dr. Kulwant Sellersosinophils/100 WBC (Bld)3.6 %Normal0.9-7.0The [facility] Comment on above:Performed By: #### HSTROPN #### [facility] [address] [place] [address] Dr. Kulwant Sellersrythrocyte distribution width (RBC) [Ratio]14.1 %Lcfbyx96.0-15.0 The [facility] CenterComment on above:Performed By: #### HSTROPN #### [facility] [address] [place] [address] Dr. Kulwant BrennanHematocrit (Bld) [Volume fraction]39.0 %Critically low42.0-54.0 The [facility] CenterComment on above:Performed By: #### HSTROPN #### [facility] [facility] [address] [place] [address] Dr. Kulwant BrennanHemoglobin (Bld) [Mass/Vol]12.5 g/dLCritically low14.0-18.0The [facility] CenterComment on above:Performed By: #### HSTROPN #### [facility] [address] [place] [address] Dr. Kulwant Coronado #0.03 10e3/ulNormal0.00-0.03The [facility]ment on above:Performed By: #### HSTROPN #### [facility] [address] [place] [address] Dr. Kulwant BrennanIG %0.4 %Normal0.0-0.5The [facility] on above: Performed By: #### HSTROPN #### [facility] [address] [place] [address] Dr. Kulwant HallMPH #2.0 103/ulNormal1.2-3.8The [facility] CenterComment on above:Performed By: #### HSTROPN #### [facility] [address] [place] [address] Dr. Kulwant Hallmphocytes/100 WBC (Bld)28.0 %Pgfjlm11.5-60.0The [facility] CenterComment on above:Performed By: #### HSTROPN #### [facility] [address] [place] [address] Dr. Kulwant Camacho DIFF REQNONormalThe [facility] CenterComment on above: Performed By: #### HSTROPN #### [facility] [address] [place] [address] Dr. Kulwant Wilkinson (RBC) [Entitic mass]27.5 lmRtopxs94.9-34.0The [facility] CenterComment on above:Performed By: #### HSTROPN #### [facility] [address] [place] [address] Dr. Kulwant Wilkinson (RBC) [Mass/Vol]32.1 g/kHCbtzej28.9-35.2The [facility] CenterComment on above:Performed By: #### HSTROPN #### [facility] [address] [place] [address] Dr. Kulwant Foley (RBC) [Entitic vol]85.7 yIGycilk22.0-94.0The [facility] CenterComment on above:Performed By: #### HSTROPN #### [facility] [address] [place] [address] Dr. Kulwant Aguirre #1.0 103/ulCritically high0.3-0.8The [facility] Comment on above:Performed By: #### HSTROPN #### [facility] [address] [place] [address] Dr. Kulwant Malcolmocytes/100 WBC (Bld)14.0 %Critically high1.7-12.0The [facility] CenterComment on above:Performed By: #### HSTROPN #### [facility] [address] [place] [address] Dr. Kulwant Mena #3.9 103/ulNormal1.4-6.5The [facility] CenterComment on above:Performed By: #### HSTROPN #### [facility] [address] [place] [address] Dr. Kulwant Plasenciautrophils/100 WBC (Bld)53.5 %Polzkl74.0-75.0The [facility] CenterComment on above:Performed By: #### HSTROPN #### [facility] [address] [place] [address] Dr. Kulwant BrennanPlatelet mean volume (Bld) [Entitic vol]10.1 fLNormal9.5-13.5The [facility] CenterComment on above:Performed By: #### HSTROPN #### [facility] [address] [place] [address] Dr. Kulwant BrennanPLT237 103/bgHoqqeq052-254Sow [facility] CenterComasc[facility] on above: Performed By: #### HSTROPN #### [facility] [address] [place] [address] Dr. Kulwant BrennanRBC4.55 106/ulCritically low4.70-6.10The [facility] CenterComment on above:Performed By: #### HSTROPN #### [facility] [address] [place] [address] Dr. Kulwant BrennanWBC7.3 103/ulNormal4.0-11.0The [facility] on above: Performed By: #### HSTROPN #### [facility] [address] [place] [address] Dr. Kulwant BrennanCT ABD/PELVIS WO CONon [id number] ABD/PELVIS WO CONCT ABD/PELVIS WO CON: 12/28/2021 [...] by: AMOS RAMIREZ Date: 2021-12-29 00:59Normal The [facility] CenterPRO 14(COMP METB)on 71-79-9678Lkvcmlq [Mass/Vol]4.0 g/dL Normal3.4-5.0The [facility] on above:Performed By: #### HSTROPN #### [facility] [address] [place] [address] Dr. Kulwant BrennanAlbumin/Globulin [Mass ratio]1.1 {ratio}NormalThe [facility] on above:Performed By: #### HSTROPN #### [facility] [address] [address] [address] Kulwant MedinaP [Catalytic activity/Vol]68 U/SGehtfc92-952Zyh [facility] on above:Performed By: #### HSTROPN #### [facility] [address] [address] [address] Kulwant MedinaT [Catalytic activity/Vol]27 U/DXhsakv30-07Zku [facility] CenterComment on above:Performed By: #### HSTROPN #### [facility] [address] [place] [address] Dr. Kulwant BrennanAnion gap [Moles/Vol]12.8 mmol/LNormalThe [facility] Comment on above:Performed By: #### HSTROPN #### [facility] [address] [place] [address] Dr. Kulwant BrennanAST [Catalytic activity/Vol]16 U/UXwnzcq45-46Lwd [facility] CenterComment on above:Performed By: #### HSTROPN #### [facility] [address] [place] [address] Dr. Kulwant BrennanBilirubin [Mass/Vol]0.5 mg/dLNormal0.2-1.0[facility] Comment on above:Performed By: #### HSTROPN #### [facility] [address] [place] [address] Dr. Kulwant BrennanCalcium [Mass/Vol]7.4 mg/dLCritically low8.5-10.1The [facility] CenterComment on above:Performed By: #### HSTROPN #### [facility] [address] [place] [address] Dr. Kulwant BrennanChloride [Moles/Vol]102 mmol/DOwzfyi80-917Wmg [facility] Comment on above:Performed By: #### HSTROPN #### [facility] [address] [place] [address] Dr. Kulwant BrennanCO2 [Moles/Vol]27.1 mmol/PMricfd60.0-32.0The [facility] Comment on above:Performed By: #### HSTROPN #### [facility] [address] [place] [address] Dr. Kulwant BrennanCreatinine [Mass/Vol]1.42 mg/dLCritically high0.70-1.30The [facility] CenterComment on above:Performed By: #### HSTROPN #### [facility] [address] [address] [address] Kulwant SellersGFR-AF VRVJKSEX71 mL/min/1.56c7Qechxt>=60[facility] Comment on above:Performed By: #### HSTROPN #### [facility] [address] [address] [address] Kulwant SellersGFR-NON AF DKRHANDC54 mL/min/1.75s9Hmgocsohgs low>=60[facility] CenterComment on above:Performed By: #### HSTROPN #### [facility] [address] [address] [address] Kulwant BrennanGlobulin (S) [Mass/Vol]3.5 g/dLNormalThe [facility] CenterComment on above:Performed By: #### HSTROPN #### [facility] [address] [address] [address] Kulwant BrennanGlucose [Mass/Vol]139 mg/dLCritically rqdh65-685HbcUpper Valley Medical CenterComment on above:Performed By: #### HSTROPN #### [facility] [address] [address] [address] Kulwant BrennanPotassium [Moles/Vol]3.9 mmol/LNormal3.5-5.1[facility] Comment on above:Performed By: #### HSTROPN #### [facility] [address] [address] [address] Kulwant BrennanProtein [Mass/Vol]7.5 g/dLNormal6.4-8.2[facility] Comment on above:Performed By: #### HSTROPN #### [facility] [address] [address] [address] Kulwant BrennanSodium [Moles/Vol]138 mmol/WSfuuxd116-514ShxUpper [facility] Medical Center Comment on above:Performed By: #### HSTROPN #### [facility] [address] [address] [address] Kulwant BrennanUrea nitrogen [Mass/Vol]27.0 mg/dLCritically high7.0-18.0The [facility] CenterComment on above:Performed By: #### HSTROPN #### [facility] [address] [place] [address] Dr. Kulwant Scott nitrogen/Creatinine [Mass ratio]19.0 mg/mgNormalThWestern Reserve HospitalComment on above:Performed By: #### HSTROPN #### [facility] [address] [place] [address] Dr. Kulwant Miramontes 17-44-6518dOCX Coag (Bld) [Time]32.8 rJnvewy17.0-35.0The [facility] HospitalComment on above:Order Comment: No: Do [...] BE USED FOR THIS PURPOSE.Performed By: #### 30017, 25832 #### [facility] [address] [facility] [place] [address], [facility]ENTERCB COMPLETE BLOOD COUNTon 85-90-2715Pupuwcsclbv distribution width (RBC) [Ratio]14.0 %Xnykxf26.5-15.0The [facility] HospitalComment on above:Order Comment: No: Do not add to previous draw Performed By: #### 39604, 52341 #### [facility] [address] [facility] [place] [address], [facility]ICAL CENTERHematocrit (Bld) [Volume fraction]36.7 %Low39.0-50.0The [facility] HospitalComment on above:Order Comment: No: Do not add to previous drawPerformed By: #### 70012, 00962 #### [facility] [address] [facility] [place] [address], USAHemoglobin (Bld) [Mass/Vol]12.0 g/dLLow13.0-17.0The [facility] HospitalComment on above:Order Comment: No: Do not add to previous drawPerformed By: #### 27584, 52722 #### [facility] [address] [place] [address], [facility] (RBC) [Entitic mass]27.5 zbRdxpsj95.0-33.0The [facility] HospitalComment on above:Order Comment: No: Do not add to previous drawPerformed By: #### 91083, 69001 #### [facility] [address] [place] [address], [facility]HC (RBC) [Mass/Vol]32.7 g/fSOkzitm51.0-35.0The [facility] HospitalComment on above:Order Comment: No: Do not add to previous drawPerformed By: #### 61355, 99870 #### [facility] [address] [place] [address], [facility] (RBC) [Entitic vol]84.0 eIOhwgxc94.0-98.0The [facility] HospitalComment on above:Order Comment: No: Do not add to previous drawPerformed By: #### 90212, 96521 #### [facility] [address] [place] [address], [facility]ICAL CENTERNucleated RBC/100 WBC (Bld) [Ratio]0 %Normal0-0The [facility] HospitalComment on above:Order Comment: No: Do not add to previous drawPerformed By: #### 81168, 40167 #### [facility] [address] [place] [address], [facility] CENTERPLAT SKF929 10*3/bTJvthgr837-672Qel [facility] HospitalComment on above:Order Comment: No: Do not add to previous draw Performed By: #### 91659, 20276 #### [facility] [address] [place] [address], [facility] CENTERRBC (Bld) [#/Vol]4.37 10*6/uLNormal4.20-5.70The [facility] HospitalComment on above:Order Comment: No: Do not add to previous drawPerformed By: #### 16059, 63471 #### [facility] [address] [place] [address], USAWBC (Bld) [#/Vol]8.41 10*3/uLNormal4.00-10.60The [facility] HospitalComment on above:Order Comment: No: Do not add to previous drawPerformed By: #### 74342, 95538 #### [facility] [address] [place] [address], USACOMP METABOLIC PANELon 88-57-2784Tlhtkuc [Mass/Vol]3.8 g/dL Normal3.5-5.7The [facility] HospitalComment on above:Order Comment: No: Do not add to previous drawPerformed By: #### 56335, 77434 #### [facility] [address] [place] [address], USAALKALINE SDICVF81 IU/UQdhlba95-698Vzw [facility] HospitalComment on above:Order Comment: No: Do not add to previous draw Performed By: #### 38226, 55619 #### [facility] [address] [place] [address], USAALT [Catalytic activity/Vol]16 U/LNormal7-52The [facility] HospitalComment on above:Order Comment: No: Do not add to previous drawPerformed By: #### 26542, 29777 #### [facility] [address] [place] [address], USAAST [Catalytic activity/Vol]15 U/CCakdex67-65Vmh [facility] HospitalComment on above:Order Comment: No: Do not add to previous drawPerformed By: #### 13117, 87840 #### [facility] [address] [place] [address], USABilirubin [Mass/Vol]0.9 mg/dLNormal0.3-1.0The [facility] HospitalComment on above:Order Comment: No: Do not add to previous drawPerformed By: #### 36575, 12565 #### [facility] [address] [place] [address], USACalcium [Mass/Vol]7.0 mg/dLLow8.6-10.3The [facility] HospitalComment on above:Order Comment: No: Do not add to previous drawPerformed By: #### 73215, 70691 #### [facility] [address] [place] [address], USAChloride [Moles/Vol]106 mmol/ANiiflf60-183Xef [facility] HospitalComment on above:Order Comment: No: Do not add to previous drawPerformed By: #### 61141, 45386 #### [facility] [address] [place] [address], USACO2 [Moles/Vol]27 mmol/OJcpuqz39-51Osl [facility] HospitalComment on above:Order Comment: No: Do not add to previous draw Performed By: #### 86445, 50938 #### [facility] [address] [place] [address], USACreatinine [Mass/Vol]1.16 mg/dLNormal0.70-1.30The [facility] HospitalComment on above:Order Comment: No: Do not add to previous drawPerformed By: #### 82554, 44921 #### [facility] [address] [place] [address], USAGFR/1.73 sq M.predicted among non-blacks MDRD (S/P/Bld) [Vol rate/Area]mL/min/{1.73_m2}Normal>60The [facility] Comment on above:Order Comment: No: Do not add to previous drawResult Comment: The [facility]'s estimated glomerular filtration rate (eGFR) [...] any one group of individuals.Performed By: #### 69084, 92064 #### [facility] [address] [place] [address], USAGlucose [Mass/Vol]104 mg/nQNaah25-751Xel [facility] HospitalComment on above:Order Comment: No: Do not add to previous drawPerformed By: #### 02695, 41534 #### [facility] [address] [place] [address], USAPotassium [Moles/Vol]4.3 mmol/LNormal3.5-5.1The [facility] HospitalComment on above:Order Comment: No: Do not add to previous drawPerformed By: #### 07760, 76297 #### [facility] [address] [place] [address], USAProtein [Mass/Vol]6.2 g/dLNormal6.0-8.3The [facility] HospitalComment on above:Order Comment: No: Do not add to previous drawPerformed By: #### 33218, 19036 #### [facility] [address] [place] [address], USASodium [Moles/Vol]138 mmol/TDqzwtu701-400Giq [facility] HospitalComment on above:Order Comment: No: Do not add to previous drawPerformed By: #### 98470, 84678 #### [facility] [address] [place] [address], USAUrea nitrogen [Mass/Vol]26 mg/dLHigh7-25The [facility] HospitalComment on above:Order Comment: No: Do not add to previous drawPerformed By: #### 22189, 72670 #### [facility] [address] [place] [address], USACardiovascular Lab Reporton [id number] Lab ReportUnParkview Health [facility] Patient Name: Yoli Antunez [facility] MR #: [id number] Physician: Mono Montero of [facility] Service Date: 12/12/2021 Division of Birthdate: 1955 Cardiology Room #: 5CD [id number] Adult Cardiovascular Services [facility] [address] [place], [place] [address] Cardiovascular Laboratory Report INDICATION: The patient is [...] the right common femoral vein using a 6-Bolivian ProGlide device. METHODS: Procedure was explained to the patient with risks and benefits, he signed informed consent. He was brought to laboratory animal care veterinarian in a fasting state. The procedure was [...] the right common femoral vein and a 6-Bolivian x 11 cm sheath was placed. Preclosure in the vein was performed using a 6-Bolivian ProGlide device, a transseptal wire was advanced [...] was retracted and exchanged to the Watchman 14-Bolivian double curve access sheath. This was not [...] stiffer wire. This was performed using a 6-Bolivian multipurpose catheter, through which we advanced a Lunderquist double curve wire and the distal end was placed in the left superior pulmonary vein. This eventually allowed to advance the sheath across the interatrial septum. A 6-Bolivian angled pigtail catheter was advanced and used [...] we provided the (more content not included)...NormalThe [facility] HospitalPROTHROMBIN TIMEon 26-49-3849GEH Coag (PPP) [Relative time]1.09 {INR}Normal0.91-1.16The [facility] HospitalComment on above:Order Comment: No: Do [...] OPTIMAL THERAPEUTIC RANGE. CHEST 1995;108:231S-246S.Performed By: #### 57662, 55317 #### [facility] [address] [facility] [place] [address], USAPT Coag (PPP) [Time]14.1 tYpvpko75.3-14.8The [facility] HospitalComment on above:Order Comment: No: Do not add to previous drawResult Comment: ALL RESULTS MUST BE INTERPRETED WITH RESPECT TO BLOOD DRAWING ARTIFACT OR DILUTION ERROR OF ANTICOAGULANT AT THE TIME OF SAMPLING.Performed By: #### 12870, 54837 #### [facility] [address] [place] [address], USATYPE AND SCREENon 62-56-9938WVY INTERPRETATIONONoPike Community HospitalComment on above:Performed By: #### 49975 #### [facility] [address] [place] [address], USARH INTERPRETATIONPositiveNoPike Community HospitalComment on above:Performed By: #### 49646 #### [facility] [address] [place] [address], USACovid-19 PCR (CVDTBH)on 15-45-3241KDWQ-CoV-2 (COVID-19) RNA MIKE+probe Ql (Unsp spec)Not detectedNormalNOT DETECTEDThe [facility] Comment on above:Result Comment: This test is not yet approved or cleared by the [place] FDA. When there are no FDA-approved or cleared tests available, and other criteria are met, FDA can make tests available under an emergency access mechanism called an Emergency Use Authorization (EUA). The EUA for this test is supported by the Carrot Grader Inspector of Health and Human Service's (HHS's) declaration [...] consistent with SARS-CoV-2.Performed By: #### LACT #### [facility] [address] [place] [address] Dr. Kuwlant Brennan*MRSA/MSSA DNA NASALon 11-21-2021*MRSA/MSSA DNA NASALClinical Report: (D) Specimen: NASAL SWAB Collected: 11/21/2021 09:15 Status: Final Last Updated: 11/21/2021 12:32 MSSA DNA (Final) Negative MRSA DNA (Final) NegativeNormalThe [facility] HospitalComment on above:Performed By: #### 91965 #### [facility] [address] [place] [address], USABASIC METABOLIC PANELon 53-52-9611Pchmdcz [Mass/Vol]7.0 mg/dLLow8.6-10.3The [facility] HospitalComment on above: Performed By: #### 18288 #### [facility] [address] [place] [address], USAChloride [Moles/Vol]105 mmol/LGcgknk62-061Yom [facility] HospitalComment on above:Performed By: #### 48470 #### [facility] [address] [place] [address], USACO2 [Moles/Vol]25 mmol/UBtiyfm58-46Xhn [facility] HospitalComment on above:Performed By: #### 59920 #### [facility] [address] [place] [address], USACreatinine [Mass/Vol]1.37 mg/dLHigh0.70-1.30The [facility] HospitalComment on above:Performed By: #### 89733 #### [facility] [address] [place] [address], GZWYJDU64 ml/min/1.73sq mAbnormal>60The [facility] HospitalComment on above:Result Comment: The [facility]'s estimated glomerular filtration rate (eGFR) [...] any one group of individuals.Performed By: #### 46209 #### [facility] [address] [place] [address], USAGlucose [Mass/Vol]100 mg/rZYfbohp45-151Cgn [facility] HospitalComment on above:Performed By: #### 60251 #### [facility] [address] [place] [address], USAPotassium [Moles/Vol]4.6 mmol/LNormal3.5-5.1The [facility] HospitalComment on above:Performed By: #### 26955 #### [facility] [address] [place] [address], USASodium [Moles/Vol]139 mmol/WYbvtco408-200Ihz [facility] HospitalComment on above:Performed By: #### 37591 #### [facility] [address] [place] [address], USAUrea nitrogen [Mass/Vol]26 mg/dLHigh7-25The [facility] HospitalComment on above:Performed By: #### 05510 #### [facility] [address] [facility] [place] [address], USACBC COMPLETE BLOOD COUNTon 82-94-4902Hjrkidzwoby distribution width (RBC) [Ratio]14.2 %Itrcvk77.5-15.0The [facility] HospitalComment on above:Performed By: #### 46197, 78594 #### [facility] [address] [facility] [place] [address], USAHematocrit (Bld) [Volume fraction]40.6 %Oqigtx64.0-50.0The [facility] HospitalComment on above:Performed By: #### 17541, 27362 #### [facility] [address] [facility] [place] [address], USAHemoglobin (Bld) [Mass/Vol]13.0 g/kRRwffsh97.0-17.0The [facility] HospitalComment on above:Performed By: #### 67550, 50276 #### [facility] [address] [place] [address], [facility] (RBC) [Entitic mass]27.0 caLlicdy60.0-33.0The [facility] HospitalComment on above:Performed By: #### 33867, 92112 #### [facility] [address] [place] [address], [facility] (RBC) [Mass/Vol]32.0 g/oMYtrnfj57.0-35.0The [facility] HospitalComment on above:Performed By: #### 99218, 30558 #### [facility] [address] [place] [address], [facility] (RBC) [Entitic vol]84.4 vXCetktu57.0-98.0The [facility] HospitalComment on above:Performed By: #### 30059, 30011 #### [facility] [address] [place] [address], USANucleated RBC/100 WBC (Bld) [Ratio]0 %Normal0-0The [facility] HospitalComment on above:Performed By: #### 90516, 59864 #### [facility] [address] [place] [address], USAPLAT FJI405 10*3/eIBegrbu260-152Ivn [facility] HospitalComment on above:Performed By: #### 13659, 77677 #### [facility] [address] [place] [address], USARBC (Bld) [#/Vol]4.81 10*6/uLNormal4.20-5.70The [facility] HospitalComment on above:Performed By: #### 53667, 90005 #### [facility] [address] [place] [address], USAWBC (Bld) [#/Vol]7.53 10*3/uLNormal4.00-10.60The [facility] HospitalComment on above:Performed By: #### 52722, 42750 #### [address] [address], USACHEST AND LATERALon 33-37-8852QFDYT AND [facility] [address] [place] [address] Patient Name: YOLI ANTUNEZ : [...] device. Electronically signed: Danilo Bhandari. Transcribed by: [email or web address], User Resident: Electronically Signed by: DANILO BHANDARI @ 11/21/2021 11:32 AMNormalThe [facility] HospitalComment on above:Order Comment: No: Do not add to previous drawCovid-19 PCR ([facility])on 93-70-2520EVDC-CoV-2 (COVID-19) RNA MIKE+probe Ql (Unsp spec)Not detectedNormalNOT DETECTEDThe [facility] Comment on above:Result Comment: This test is not yet approved or cleared by the [place] FDA. When there are no FDA-approved or cleared tests available, and other criteria are met, FDA can make tests available under an emergency access mechanism called an Emergency Use Authorization (EUA). The EUA for this test is supported by the Carrot Grader Inspector of Health and Human Service's (HHS's) declaration [...] and symptoms consistent with SARS-CoV-2.Performed By: #### [facility] ####[facility] [address] [place], [place] [address]MtAmarjit Alanaselvin Holy Family HospitalCardiovascular Lab Reporton [id number] Lab ReportUnParkview Health [facility] Patient Name: [facility] Yoli Peoples MR #: [id number] Department of Physician: Lalito Joshi MD Medicine Service Date: 11/09/2021 Division of Birthdate: 1955 Cardiology Room #: Adult Cardiovascular Services [place] [address] Cardiovascular Laboratory Report LOOP IMPLANT PROCEDURE NOTE [...] the sternum on the left using the [employer] tool. The loop recorder was then injected [...] observed. LOOP details: Device Model: M301 Serial#: [id number] Sensin.16mV. IMPRESSION: Successful placement of LOOP implant with excellent sensing parameters. RECOMMENDATIONS: 1. Occlusive dressing to be changed after 7 days. 2. Do not wet the incision. Lalito Joshi MD Cardiac Electrophysiology. Electronically Signed by: Lalito Joshi MD 11/10/2021 11:10 A Lalito Joshi MD Date Dict: 11/09/2021/08:45 A/Lalito Joshi MD Date Trans: 11/09/2021 11:32 A/liliane DN_JN:[id number] cc: Radha Burris M.D. [address] [place] [address] [facility] [address]ObfcpjHjqSelect [facility] SARS COV2 IDon [id number]-CoV-2 (COVID-19) RNA MIKE+probe Ql (Unsp spec)NegativeNormal NEGATIVEThe [facility] District Memorial HospitalComment on above:Result Comment: ID NOW [...] Compliance, or Certificate of Accreditation.Performed By: #### [id number], [id number] #### [address] [place] [address], [facility] MEDICAL CENTERBNPon 62-05-7649Latuvgdtawm peptide B (Bld) [Mass/Vol]75.0 pg/mLNormal<=900.0The [facility] CenterComment on above:Performed By: #### HSTROPN #### [facility] [address] [place] [address] Dr. Kulwant DICK ADMITon 12-83-1250NP [Catalytic activity/Vol]142 U/L Ilhirg59-808WxvUpper Valley Medical CenterComment on above:Performed By: #### HSTROPN #### [facility] [address] [place] [address] Dr. Kulwant Patton.MB [Mass/Vol]1.15 ng/mLNormal<=3.60[facility] Comment on above:Performed By: #### HSTROPN #### [facility] [address] [place] [address] Dr. Kulwant LockwoodTROP4.0 pg/mLNormal4.0-76.1The [facility] CenterComment on above:Result Comment: CUT-OFF POINTS HAVE BEEN ESTABLISHED BASED ON THE FOURTH UNIVERSAL DEFINITIONS OF MYOCARDIAL INFARCTION. THE UPPER REFERENCE LIMIT (URL) OF TROPONIN, DEFINED THE 99TH PERCENTILE OF cTnI DISTRIBUTION IN A REFERENCE POPULATION, HAS BEEN CONFIRMED THE DECISION THRESHOLD FOR HI DIAGNOSIS.Performed By: #### HSTROPN #### [facility] [address] [place] [address] Dr. Kulwant PinedaO57 ng/qDOajmcr12-06Crz [facility] CenterComment on above: Performed By: #### HSTROPN #### [facility] [address] [place] [address] AUTO DIFFon 82-81-3352LRBF #0.0 103/ulNormal0.0-0.1The [facility] CenterComment on above:Performed By: #### HSTROPN #### [facility] [address] [place] [address] Dr. Kulwant BrennanBasophils/100 WBC (Bld)0.4 %Normal0.2-2.0[facility] Comment on above:Performed By: #### HSTROPN #### [facility] [address] [place] [address] Dr. Kulwant Radford #0.2 103/ulNormal0.0-0.7The [facility] CenterComment on above: Performed By: #### HSTROPN #### [facility] [address] [place] [address] Dr. Kulwant Sellersosinophils/100 WBC (Bld)2.6 %Normal0.9-7.0[facility] Comment on above:Performed By: #### HSTROPN #### [facility] [address] [place] [address] Dr. Kulwant Sellersrythrocyte distribution width (RBC) [Ratio]14.6 %Swkcgm11.0-15.0 The [facility] CenterComment on above:Performed By: #### HSTROPN #### [facility] [address] [place] [address] Dr. Kulwant BrennanHematocrit (Bld) [Volume fraction]43.0 %Poprty67.0-54.0The [facility] CenterComment on above:Performed By: #### HSTROPN #### [facility] [address] [place] [address] Dr. Kulwant BrennanHemoglobin (Bld) [Mass/Vol]13.6 g/dLCritically low14.0-18.0The [facility] CenterComment on above:Performed By: #### HSTROPN #### [facility] [address] [place] [address] Dr. Kulwant Coronado #0.03 10e3/ulNormal0.00-0.03The [facility]manton HospitalComment on above:Performed By: #### HSTROPN #### [facility] [address] [place] [address] Dr. Kulwant Coronado %0.4 %Normal0.0-0.5The [facility] CenterComment on above: Performed By: #### HSTROPN #### [facility] [address] [place] [address] Dr. Kulwant Griffith #1.8 103/ulNormal1.2-3.8The [facility] CenterComment on above:Performed By: #### HSTROPN #### [facility] [address] [place] [address] Dr. Kulwant Méndezhocytes/100 WBC (Bld)25.3 %Ihgyox70.5-60.0The [facility] CenterComment on above:Performed By: #### HSTROPN #### [facility] [address] [place] [address] Dr. Kulwant KaplanUAL DIFF REQNONormalThe [facility] CenterComment on above: Performed By: #### HSTROPN #### [facility] [address] [place] [address] Dr. Kulwant Hagan (RBC) [Entitic mass]27.1 riJursvn33.9-34.0The [facility] CenterComment on above:Performed By: #### HSTROPN #### [facility] [address] [place] [address] Dr. Kulwant Wilkinson (RBC) [Mass/Vol]31.6 g/nQTqimmy23.9-35.2The [facility] CenterComment on above:Performed By: #### HSTROPN #### [facility] [address] [place] [address] Dr. Kulwant Foley (RBC) [Entitic vol]85.8 xJSyzsbm26.0-94.0The [facility] HospitalComment on above:Performed By: #### HSTROPN #### [facility] [address] [place] [address] Dr. Kulwant Aguirre #0.8 103/ulNormal0.3-0.8The [facility] CenterComment on above:Performed By: #### HSTROPN #### [facility] [address] [place] [address] Dr. Kulwant Malcolmocytes/100 WBC (Bld)11.9 %Normal1.7-12.0The [facility] Comment on above:Performed By: #### HSTROPN #### [facility] [address] [place] [address] Dr. Kulwant Mena #4.1 103/ulNormal1.4-6.5The [facility] CenterComment on above:Performed By: #### HSTROPN #### [facility] [address] [place] [address] Dr. Kulwant Plasenciautrophils/100 WBC (Bld)59.4 %Dxxiuc07.0-75.0The [facility] CenterComment on above:Performed By: #### HSTROPN #### [facility] [address] [place] [address] Dr. Kulwant Díazlet mean volume (Bld) [Entitic vol]9.8 fLNormal9.5-13.5The [facility] CenterComment on above:Performed By: #### HSTROPN #### [facility] [address] [place] [address] Dr. Kulwant PriceT201 103/fvTkaojx876-831Fgj [facility] CenterComment on above: Performed By: #### HSTROPN #### [facility] [address] [place] [address] [address] Kulwant BrennanRBC5.01 106/ulNormal4.70-6.10The [facility] CenterComment on above:Performed By: #### HSTROPN #### [facility] [address] [place] [address] [address] Kulwant BrennanWBC7.0 103/ulNormal4.0-11.0The [facility] CenterComment on above: Performed By: #### HSTROPN #### [facility] [address] [place] [address] [address] Kulwant BrennanCT HEAD WO CONon [id number] HEAD WO CONEXAMINATION: CT HEAD WO CON [...] Electronically authenticated by: DONNELL DU Date: 2021-10-03 11:41NormMcKitrick HospitalCTA CHEST WO W CONon [id number] CHEST WO W CONEXAMINATION: CTA CHEST WO [...] Electronically authenticated by: DONNELL DU Date: 2021-10-03 11:50[facility] URINE PROFILEon 59-42-3723Ebwvtbzpr Ql (U)NegativeNormal NEGATIVEUpper Valley Medical CenterComment on above:Performed By: #### HSTROPN #### [facility] [address] [place] [address] Dr. Kulwant BrennanClestefany (U)CLEARNormalCLEARUpper Valley Medical CenterComment on above: Performed By: #### HSTROPN #### [facility] [address] [place] [address] [address] Kulwant Queen (U)LT. YELLOWNormalYELLOWUpper Valley Medical CenterComment on above:Performed By: #### HSTROPN #### [facility] [address] [place] [address] Dr. Kulwant Jarrett micrscopic examination will be performed if indicated. NormalUpper Valley Medical CenterComment on above:Performed By: #### HSTROPN #### [facility] [address] [place] [address] [address] Kulwant BrennanGlucose Ql (U)NegativeNormalNEGATIVEUpper Valley Medical CenterComment on above:Performed By: #### HSTROPN #### [facility] [address] [place] [address] Dr. Kulwant BrennanHemoglobin Ql (U)NegativeNormalNEGATIVEKindred Hospital Dayton on above:Performed By: #### HSTROPN #### [facility] [address] [place] [address] Dr. Kulwant Knight Ql (U)NegativeNormalNEGATIVEThe [facility] CenterComment on above:Performed By: #### HSTROPN #### [facility] [address] [place] [address] Dr. Kulwant BrennanLEUKOCYTESNegativeNormalNEGATIVEThe [facility] CenterComment on above:Performed By: #### HSTROPN #### [facility] [address] [place] [address] Dr. Kulwant Gregorytrdexter Ql (U)NegativeNormalNEGATIVEThe [facility] CenterComment on above:Performed By: #### HSTROPN #### [facility] [address] [place] [address] Dr. Kulwant BrennanpH (U)5.5 [pH]Normal5-9The [facility] CenterComment on above: Performed By: #### HSTROPN #### [facility] [address] [place] [address] Dr. Kulwant BrennanSPEC GRAVITY1.331Pwturn8.005-<=1.025The [facility] CenterComment on above:Performed By: #### HSTROPN #### [facility] [address] [place] [address] Dr. Kulwant French PROTEINNegativeNormalNEGATIVE/ TRACEThe [facility] Comment on above:Performed By: #### HSTROPN #### [facility] [address] [place] [address] Dr. Kulwant Bullock MICRO INDNOT INDICATEDNormalThe [facility] CenterComment on above:Performed By: #### HSTROPN #### [facility] [address] [place] [address] Dr. Kulwant Garciabilinogen Qn (U)0.2 {Luis'U}/dLNormal0.2 - 1.0The [facility] CenterComment on above:Performed By: #### HSTROPN #### [facility] [address] [place] [address] Dr. Kulwant RicoF 14(COMP METB)on 70-80-9774Ysencoe [Mass/Vol]3.9 g/dLNormal 3.4-5.0The [facility] Glenbeighment on above:Performed By: #### HSTROPN #### [facility] [address] [address] [address] Kulwant BrennanAlbumin/Globulin [Mass ratio]1.0 {ratio}NormalThe [facility] CenterComment on above:Performed By: #### HSTROPN #### [facility] [address] [address] [address] Kulwant MedinaP [Catalytic activity/Vol]59 U/HDbxqgu91-921Jho [facility] Glenbeighment on above:Performed By: #### HSTROPN #### [facility] [address] [place] [address] [address] Kulwant MedinaT [Catalytic activity/Vol]30 U/FEqvepw26-12Cyo [facility] CenterComment on above:Performed By: #### HSTROPN #### [facility] [address] [place] [address] [address] Kulwant Akbar gap [Moles/Vol]13.4 mmol/LNormalThe [facility] Comment on above:Performed By: #### HSTROPN #### [facility] [address] [place] [address] [address] Kulwant BrennanAST [Catalytic activity/Vol]14 U/LCritically zhu24-57Ane [facility] Glenbeighment on above:Performed By: #### HSTROPN #### [facility] [address] [place] [address] [address] Kulwant BrennanBilirubin [Mass/Vol]0.6 mg/dLNormal0.2-1.0The [facility] Comment on above:Performed By: #### HSTROPN #### [facility] [address] [address] [address] Kulwant BrennanCalcium [Mass/Vol]7.6 mg/dLCritically low8.5-10.1The [facility] CenterComment on above:Performed By: #### HSTROPN #### [facility] [address] [place] [address] [address] Kulwant BrennanChloride [Moles/Vol]107 mmol/IUuetvb30-307Ita [facility] Comment on above:Performed By: #### HSTROPN #### [facility] [address] [place] [address] [address] Kulwant BrennanCO2 [Moles/Vol]24.4 mmol/FKuunqa36.0-32.0The [facility] Comment on above:Performed By: #### HSTROPN #### [facility] [address] [address] [address] Kulwant BrennanCreatinine [Mass/Vol]1.36 mg/dLCritically high0.70-1.30The [facility] CenterComment on above:Performed By: #### HSTROPN #### [facility] [address] [address] [address] Kulwant SellersGFR-AF CITIZEN OF [place]>60Normal>=60The [facility] CenterComment on above:Performed By: #### HSTROPN #### [facility] [address] [address] [address] Kulwant SellersGFR-NON AF UHVGFTYA97 mL/min/1.75w5Lyegupcjwc low>=60The [facility] CenterComment on above:Performed By: #### HSTROPN #### [facility] [address] [address] [address] Kulwant BrennanGlobulin (S) [Mass/Vol]3.8 g/dLNormalThe [facility] CenterComment on above:Performed By: #### HSTROPN #### [facility] [address] [place] [address] [address] Kulwant BrennanGlucose [Mass/Vol]99 mg/xBBubrpt76-363Qdz [facility] Comment on above:Performed By: #### HSTROPN #### [facility] [address] [place] [address] [address] Kulwant BrennanPotassium [Moles/Vol]3.8 mmol/LNormal3.5-5.1[facility] Comment on above:Performed By: #### HSTROPN #### [facility] [address] [address] [address] Kulwant BrennanProtein [Mass/Vol]7.7 g/dLNormal6.4-8.2[facility] Comment on above:Performed By: #### HSTROPN #### [facility] [address] [place] [address] [address] Kulwant BrennanSodium [Moles/Vol]141 mmol/GPigark129-652Qxw [facility] Comment on above:Performed By: #### HSTROPN #### [facility] [address] [place] [address] Dr. Kulwant BrennanUrea nitrogen [Mass/Vol]24.0 mg/dLCritically high7.0-18.0[facility] Medical CenterComment on above:Performed By: #### HSTROPN #### [facility] [address] [place] [address] Dr. Kulwant Scott nitrogen/Creatinine [Mass ratio]17.6 mg/mgNoMartin Memorial HospitalComment on above:Performed By: #### HSTROPN #### [facility] [address] [place] [address] Dr. Kulwant BrennanPROTIMEvicky 62-95-7274XIW Coag (PPP) [Relative time]1.04 {INR} NormalUpper Valley Medical CenterComment on above:Performed By: #### PT, PTT ####[facility] [address] [place], [place] [address]Dr. Kulwant Guidry GUIDELINESSEE BELOWBrecksville VA / Crille HospitalComment on above: Result Comment: DESIRED INR: 2.0 - 3.0 CONDITIONS NOT LISTED BELOW 2.5 - 3.5 FOR PROSTHETIC HEART VALVE REPLACEMENT 2.5 - 3.5 RECURRENT THROMBOSISPerformed By: #### PT, PTT ####[facility] [address] [place] [address]Dr. Kulwant BrennanPT Coag (PPP) [Time]11.2 sNormal9.0-11.6The [facility] CenterComment on above:Performed By: #### PT, PTT ####[facility] [address] [place], [place] [address]ObAmarjit SolerBanner Thunderbird Medical Center 26-49-8055yPGU Coag (Bld) [Time]33.1 wHklcmk91.3-36.2The [facility] Comment on above:Performed By: #### PT, PTT ####[facility] [address] [place], [place] [address]EnAmarjit WilcoxNIN, HIGH SENSITIVITYon 16-57-9570DYWHMA4.1 pg/mLNormal4.0-76.1The [facility] CenterComment on above: Result Comment: CUT-OFF POINTS HAVE BEEN ESTABLISHED BASED ON THE FOURTH UNIVERSAL DEFINITIONS OF MYOCARDIAL INFARCTION. THE UPPER REFERENCE LIMIT (URL) OF TROPONIN, DEFINED THE 99TH PERCENTILE OF cTnI DISTRIBUTION IN A REFERENCE POPULATION, HAS BEEN CONFIRMED THE DECISION THRESHOLD FOR HI DIAGNOSIS.Performed By: #### HSTROPN #### [facility] [address] [address] [address] Kulwant BrennanVC VENOUS REFLUX RIOS [facility] 33-84-5236XW VENOUS REFLUX RIOS LMT Patient: YOLI ANTUNEZ Exam Date: 10/03/2021 : 1955 Gender:M Ordering : YANDEL SHEN Admission #: [id number] Family : Order #: [id number] CLICK HERE TO VIEW EXAM RADIOLOGY REPORT [...] chronic thrombus visualized Compressibility: Normal Flow: Normal Bottom Ironer: Dist/med off PTV 2 mm, 0s reflux; [...] by: Donnell Du M.D. on 10/04/2021 at 12:09Brecksville VA / Crille HospitalXR CHEST 1 Von 71-65-4629SF CHEST 1 VEXAM: XR CHEST 1 V [...] authenticated by: LUZ ELENA EMERY Date: 2021-10-03 13:00[facility] Hospitalon 01-44-2126USN [facility] HospitalComment on above:Result Comment: The KHALIDA IFA KYLE [...] clinical condition by medical authority.Performed By: #### [id number] #### [facility] [address] [facility] [place] [address], [facility] CENTERANA SCREEN1:40Normal<1:40,1:40The [facility] HospitalComment on above:Result Comment: Test performed using KHALIDA IFA KYLE Hep-2 Test, a pre-standardized assay designed for the qualitative and semi-quantitative detection of antinuclear antibodies.Performed By: #### [id number] #### [facility] [address] [facility] [place] [address], [facility] CENTERC REACTIVE PROTEINon 52-48-0676FUV [Mass/Vol]3.1 mg/LNormal 0.0-7.0The [facility] HospitalComment on above:Performed By: #### 61533, [id number] #### [facility] [address] [facility] [place] [address], [place] [address]pe 35-67-5468HVGNTV CIT PEP4 UnitsNormal0-19The [facility] HospitalComment on above: Result Comment: INTERPRETIVE [...] be monitored and testing repeated. Performed By: aihuish[address] [place] [address] Flooring Professional: CHASIDY MccormickHEUMATOID FACTOR SERUMon 96-95-7915CQ <19Twigvq1-54Tdm [facility] HospitalComment on above:Performed By: #### 96154, 23287 #### [facility] [address] [place] [address], USASEDIMENTATION RATEon 26-25-3940MQC RATE12 mm/hrHigh0-10The [facility] HospitalComment on above:Performed By: #### 93217 #### [facility] [address] [place] [address], USAUS ANDREW DOP LEG BILon 86-82-8335EG ANDREW DOP LEG RIOS EXAMINATION: [place] ANDREW [...] authenticated by: ERICK DEL ANGEL Date: 2021-09-27 16:12[facility] Head or Brain w/o Contrast*on 89-67-3016VS Head or Brain w/o Contrast*HISTORY: Aphasia. Left [...] and signed by Hollis Cadet on 09/11/2021 1546NormalNorttucson va medical centern Lawrence+Memorial HospitalComprehensive Metabolic Panelon 72-98-2178Qmbtrji [Mass/Vol]4.9 g/dLNormal3.6-5.1[facility] SpecialistComment on above: Performed By: #### CMP #### [facility] [address] [place], [place] [id number]/Globulin [Mass ratio]1.8 {ratio}Normal1.0-2.5Norttucson va medical centern [facility] SpecialistComment on above:Performed By: #### CMP #### [facility] [address] [place], [place] [id number] [Catalytic activity/Vol]83 U/UIggcmm96-742DnpcwvplBellevue HospitalComment on above:Performed By: #### CMP #### [facility] [address] [place], [place] [id number] [Catalytic activity/Vol]20 U/LNormal9-46Norttucson va medical centern [facility] SpecialistComment on above:Result Comment: 03/22/2021 Female reference range changed.Performed By: #### CMP #### [facility] [address] [place], [place] [id number] gap [Moles/Vol]18 mmol/GVbkfvu95-80OzemvldfBellevue HospitalComment on above:Result Comment: Effective 04/27/2019 reference range changed.Performed By: #### CMP #### [facility] [address] [place], [place] [id number] [Catalytic activity/Vol]18 U/WFtilul27-39Zkdcsqbl [place] Medical SpecialistComment on above:Performed By: #### CMP #### [facility] [address] [place], [place] [id number] [Mass/Vol]0.33 mg/dLNormal0.30-1.20NortPike Community Hospital SpecialistComment on above:Performed By: #### CMP #### [facility] [address] [place], [place] [id number]/CREA20 RatioNormal6-22NoUniversity Hospitals Health System Specialist Comment on above:Performed By: #### CMP #### [facility] [address] [place], [place] [id number] [Mass/Vol]8.4 mg/dLLow8.6-10.2NortherFisher-Titus Medical Center SpecialistComment on above:Performed By: #### CMP #### [facility] [address] [place], [place] [id number] [Moles/Vol]106 mmol/BCbpcsc79-959Sbsuvvhm [place] Medical SpecialistComment on above:Performed By: #### CMP #### [facility] [address] [place], [place] [id number] [Moles/Vol]24 mmol/OVdezaw79-41Mpbdgdvi [place] Medical SpecialistComment on above:Performed By: #### CMP #### [facility] [address] [place], [place] [id number] [Mass/Vol]1.4 mg/dLNormal0.7-1.4NoUniversity Hospitals Health System SpecialistComment on above:Performed By: #### CMP #### [facility] [address] [place], [place] [id number] mL/min/1.45l0Qgp>60NoSt. John's Hospital Camarillo Application Development Team Lead Comment on above:Performed By: #### CMP #### [facility] [address] [place], [place] [id number] mL/min/1.24e8Tgm>60NortDayton Osteopathic Hospital Application Development Team Lead Comment on above:Performed By: #### CMP #### [facility] [address] [facility] HospitalenencL[facility]ella, [place] [address]Ylnoooxx (S) [Mass/Vol]2.7 g/dLNormal1.9-3.7NoUniversity Hospitals Health System SpecialistComment on above:Performed By: #### CMP #### [facility] [address] [place], [place] [id number] [Mass/Vol]98 mg/lVDbvcjy48-35Ywlxlytk [place] [facility] SpecialistComment on above:Result Comment: For FASTING Glucose --- ADA reference ranges: Normal 65-99 mg/dl Prediabetes 100-125 Diabetes >/= 126Performed By: #### CMP #### [facility] [address] [place], [place] [id number] [Moles/Vol]5.0 mmol/LNormal3.5-5.5NoUniversity Hospitals Health System SpecialistComment on above:Performed By: #### CMP #### [facility] [address] [place], [place] [id number] [Mass/Vol]7.6 g/dLNormal6.1-8.1[facility] SpecialistComment on above:Performed By: #### CMP #### [facility] [address] [place], [place] [id number] [Moles/Vol]143 mmol/YGyudem611-159Sdvmeofp [place] Medical SpecialistComment on above:Performed By: #### CMP #### [facility] [address] [place], [place] [id number] nitrogen [Mass/Vol]30 mg/dLHigh7-25[facility] SpecialistComment on above:Performed By: #### CMP #### [facility] [address] [place], [place] [id number] 35-98-8138Ijpqgewuf [Mass/Vol]2.0 mg/dLNormal 1.5-2.3[facility] SpecialistComment on above:Performed By: #### VITD, MG, PHOS #### [facility] [address] [place], [place] [id number] Hormone, [place] 10-16-2398WBB73.53 pg/mLLow 16.00-65.00[facility] SpecialistComment on above:Performed By: #### PTH* #### [facility] [address] [place], [place] [id number] 63-57-2831Slwxbbeez [Mass/Vol]4.3 mg/dLNormal 2.2-4.4[facility] SpecialistComment on above:Performed By: #### VITD, MG, PHOS #### [facility] [address] [place], [place] [id number] - CALCIUM,IONIZEDon 09-50-2825MJWZNAB, IONIZED4.0 mg/dLLow 4.8-5.6[facility] SpecialistComment on above:Order Comment: [facility] performed at: [facility], [facility], [address] [place] [address], [address] [place] [address], [phone], Flooring Professional: Janes Vasquez MDQuest Collection Date/Time: [id number] Results Received Date/Time: [id number] Reported Date/Time: [id number] By: #### CMP, CBCAD, TSH #### [facility] [address] [place], [place] [id number] D 25-OHon 38-47-2060ZIX D 25 OH27 ng/mlLow>29[facility] SpecialistComment on above:Result Comment: Vitamin D Status Deficiency <20 ng/mL Insufficiency 20-29 ng/mL Optimal 30-100 ng/mL Possible Toxicity >=150 ng/mLPerformed By: #### VITD, MG, PHOS #### [facility] [address] [place], [place] [id number] Blood Count with Auto Diffon 18-76-6028Uhryibybj (Bld) [#/Vol]0.04 10*3/uLNormal0.00-0.20[facility] SpecialistComment on above:Performed By: #### CMP, CBCAD, TSH #### [facility] [address] [place], [place] [id number]/100 WBC (Bld)0.6 %NormalGuernsey Memorial Hospital SpecialistComment on above:Performed By: #### CMP, CBCAD, TSH #### [facility] [address] [place], [place] [id number] (Bld) [#/Vol]0.28 10*3/uLNormal0.02-0.50[facility] SpecialistComment on above:Performed By: #### CMP, CBCAD, TSH #### [facility] [address] [place], [place] [id number]/100 WBC (Bld)4.1 %[facility] SpecialistComment on above:Performed By: #### CMP, CBCAD, TSH #### [facility] [address] [place], [place] [id number] distribution width (RBC) [Ratio]14.5 %Normal 11.0-15.0[facility] SpecialistComment on above:Performed By: #### CMP, CBCAD, TSH #### [facility] [address] [place], [place] [id number] (Bld) [Volume fraction]43.0 %Docgbh93.5-50.0 [facility] SpecialistComment on above:Performed By: #### CMP, CBCAD, TSH #### [facility] [address] [place], [place] [id number] (Bld) [Mass/Vol]13.7 g/xFTfjwaq61.0-17.1[facility] SpecialistComment on above:Performed By: #### CMP, CBCAD, TSH #### [facility] [address] [place], [place] [id number] (Bld) [#/Vol]1.6 10*3/uLNormal0.9-3.9[facility] SpecialistComment on above:Performed By: #### CMP, CBCAD, TSH #### [facility] [address] [place], [place] [id number]/100 WBC (Bld)22.6 %NormalNoUniversity Hospitals [facility] System SpecialistComment on above:Performed By: #### CMP, CBCAD, TSH #### [facility] [address] [place], [place] [id number] (RBC) [Entitic mass]26.1 pgLow27.0-33.0NoUniversity Hospitals Health System SpecialistComment on above:Performed By: #### CMP, CBCAD, TSH #### [facility] [address] [place], [place] [id number] (RBC) [Mass/Vol]31.9 g/dLLow32.0-36.0NoUniversity Hospitals Health System SpecialistComment on above:Performed By: #### CMP, CBCAD, TSH #### [facility] [address] [place], [place] [id number] (RBC) [Entitic vol]82 eGZfmxbe48-439Jccfoyoe [place] Medical SpecialistComment on above:Performed By: #### CMP, CBCAD, TSH #### [facility] [address] [place], [place] [id number] (Bld) [#/Vol]0.7 10*3/uLNormal0.2-0.9NoUniversity Hospitals Health System SpecialistComment on above:Performed By: #### CMP, CBCAD, TSH #### [facility] [address] [place], [place] [id number]/100 WBC (Bld)10.1 %NormalNoUniversity Hospitals Health System SpecialistComment on above:Performed By: #### CMP, CBCAD, TSH #### [facility] [address] [place], [place] [id number] (Bld) [#/Vol]4.3 10*3/uLNormal1.5-7.8NoUniversity Hospitals Health System SpecialistComment on above:Performed By: #### CMP, CBCAD, TSH #### [facility] [address] [place], [place] [id number]/100 WBC (Bld)62.0 %NormalNoUniversity Hospitals Health System SpecialistComment on above:Performed By: #### CMP, CBCAD, TSH #### [facility] [address] [place], [place] [id number] mean volume (Bld) [Entitic vol]10.90 fLNormal 7.50-12.50NoUniversity Hospitals Health System SpecialistComment on above:Performed By: #### CMP, CBCAD, TSH #### [facility] [address] [place], [place] [id number] (Bld) [#/Vol]250 10*3/gEThwczt179-804Bcsidyci [place] Medical SpecialistComment on above:Performed By: #### CMP, CBCAD, TSH #### [facility] [address] [place], [place] [id number] (Bld) [#/Vol]5.25 10*6/uLNormal4.20-5.80NoUniversity Hospitals Health System SpecialistComment on above:Performed By: #### CMP, CBCAD, TSH #### [facility] [address] [place], [place] [id number]-NE91.3 zKPjpnij63.0-50.0NoUniversity Hospitals Health System Specialist Comment on above:Performed By: #### CMP, CBCAD, TSH #### [facility] [address] [place], [place] [id number] (Bld) [#/Vol]6.9 10*3/uLNormal3.8-11.0NoUniversity Hospitals Health System SpecialistComment on above:Performed By: #### CMP, CBCAD, TSH #### [facility] [address] [place], [place] [id number] Metabolic Panelon 23-74-7135Tmnhwwk [Mass/Vol] 4.7 g/dLNormal3.6-5.1[facility] SpecialistComment on above:Performed By: #### CMP, CBCAD, TSH #### [facility] [address] [place], [place] [id number]/Globulin [Mass ratio]1.8 {ratio}Normal1.0-2.5NoUniversity Hospitals Health System SpecialistComment on above:Performed By: #### CMP, CBCAD, TSH #### [facility] [address] [place], [place] [id number] [Catalytic activity/Vol]87 U/DCjgyie69-462Dmsqivpp [facility] SpecialistComment on above:Performed By: #### CMP, CBCAD, TSH #### [facility] [address] [place], [place] [id number] [Catalytic activity/Vol]22 U/LNormal9-46[facility] Medical SpecialistComment on above:Result Comment: 03/22/2021 Female reference range changed.Performed By: #### CMP, CBCAD, TSH #### [facility] [address] [place], [place] [id number] gap [Moles/Vol]20 mmol/QMerouf03-81Dtmpmrxq [place] Medical SpecialistComment on above:Result Comment: Effective 04/27/2019 reference range changed.Performed By: #### CMP, CBCAD, TSH #### [facility] [address] [place], [place] [id number] [Catalytic activity/Vol]18 U/FCmdeuy37-19Wdzlvafz [place] Medical SpecialistComment on above:Performed By: #### CMP, CBCAD, TSH #### [facility] [address] [place], [place] [id number]/CREA19 RatioNormal6-22NoUniversity Hospitals Health System Specialist Comment on above:Performed By: #### CMP, CBCAD, TSH #### [facility] [address] [place], [place] [id number] [Mass/Vol]7.4 mg/dLLow8.6-10.2[facility] SpecialistComment on above:Performed By: #### CMP, CBCAD, TSH #### [facility] [address] [facility] [place] [id number] [Moles/Vol]106 mmol/LBgghnf93-927Gxhgfkkx [place] Medical SpecialistComment on above:Performed By: #### CMP, CBCAD, TSH #### [facility] [address] [facility] [place] [id number] [Moles/Vol]20 mmol/LYopsuc59-31Wmolzkua [place] Medical SpecialistComment on above:Performed By: #### CMP, CBCAD, TSH #### [facility] [address] [place], [place] [id number] [Mass/Vol]1.5 mg/dLHigh0.7-1.4NoUniversity Hospitals Health System SpecialistComment on above:Performed By: #### CMP, CBCAD, TSH #### [facility] [address] [place], [place] [id number] mL/min/1.29n0Jmv>60[facility] Specialist Comment on above:Performed By: #### CMP, CBCAD, TSH #### [facility] [address] [place], [place] [id number] mL/min/1.95x9Sjo>60[facility] Specialist Comment on above:Performed By: #### CMP, CBCAD, TSH #### [facility] [address] [place], [place] [id number] (S) [Mass/Vol]2.6 g/dLNormal1.9-3.7NoUniversity Hospitals Health System SpecialistComment on above:Performed By: #### CMP, CBCAD, TSH #### [facility] [address] [place], [place] [id number] [Mass/Vol]112 mg/zSLfqr03-19Afpvcumf [place] Medical SpecialistComment on above:Result Comment: For FASTING Glucose --- ADA reference ranges: Normal 65-99 mg/dl Prediabetes 100-125 Diabetes >/= 126Performed By: #### CMP, CBCAD, TSH #### [facility] [address] [place], [place] [id number] [Moles/Vol]4.3 mmol/LNormal3.5-5.5NoUniversity Hospitals Health System SpecialistComment on above:Performed By: #### CMP, CBCAD, TSH #### [facility] [address] [place], [place] [id number] [Mass/Vol]7.3 g/dLNormal6.1-8.1[facility] SpecialistComment on above:Performed By: #### CMP, CBCAD, TSH #### [facility] [address] [place], [place] [id number] [Moles/Vol]142 mmol/DUkxkxp403-821Mkxibemv [place] Medical SpecialistComment on above:Performed By: #### CMP, CBCAD, TSH #### [facility] [address] [place], [place] [id number]<0.3NormalNortPike Community Hospital SpecialistComment on above:Performed By: #### CMP, CBCAD, TSH #### [facility] [address] [place], [place] [id number] nitrogen [Mass/Vol]27 mg/dLHigh7-25NoUniversity Hospitals Health System SpecialistComment on above:Performed By: #### CMP, CBCAD, TSH #### [facility] [address] [place], [place] [id number] - TROPONIN Ion 17-02-3228VRUSAJBE I3 ng/LNormal< OR = 47 [facility] SpecialistComment on above:Order Comment: [facility] performed at: [facility], [email or web address], [address] [place] [address], [address] [place] [address], [phone], Flooring Professional: Janes Vasquez MDQuest Collection Date/Time: [id number] Results Received Date/Time: [id number] Reported Date/Time: [id number] Comment: In accord with published recommendations, serial testing of troponin I at intervals of 2 to 4 hours for up to 12 to 24 hours is suggested in order to corroborate a single troponin I result. An elevated troponin alone is not sufficient to make the diagnosis of HI.Performed By: #### CMP, CBCAD, TSH #### [facility] [address] [place], [place] [id number] 66-34-7043XCL7.917 uIU/mLNormal0.400-4.500NoUniversity Hospitals Health System SpecialistComment on above:Performed By: #### CMP, CBCAD, TSH #### [facility] [address] [place], [place] [id number] Chest WO contraston 47-23-9313LEWJVAEMER: 1. Mild bronchiectasis in both lower lobes, the right middle lobe and the lingula, consistent with remote or chronic airways inflammation. In this distribution, sequelae of chronic aspiration pneumonitis must be considered. A type III hiatal hernia is noted. 2. Fusiform dilation of the ascending thoracic aorta, stable in appearance since the exam dated 01/05/2021. Ground Support Equipment Assembler: PSCBrandan Transcribe Date/Time: May 01 2021 8:27A Dictated by : MASSIMO OAKES MD This examination was interpreted and the report reviewed and electronically signed by: MASSIMO OAKES MD on May 01 2021 8:49AM [facility] [[email or web address]] DIVISION OF RADIOLOGY* * *Final Report* * * DATE OF EXAM: May 01 2021 8:21AM [facility] 0541 - CT CHEST WO [...] A few calcified splenic granulomata are noted. Diabetologist (topogram) images: No additional findings. DIVISION OF RADIOLOGYProvider, [facility] [place] - 05/01/2021 * * *Final Report* * * DATE OF EXAM: May 01 2021 8:21AM [facility] 0541 - CT CHEST WO [...] A few calcified splenic granulomata are noted. Diabetologist (topogram) images: No additional findings. IMPRESSION IMPRESSION: 1. Mild bronchiectasis in both lower lobes, the right middle lobe and the lingula, consistent with remote or chronic airways inflammation. In this distribution, sequelae of chronic aspiration pneumonitis must be considered. A type III hiatal hernia is noted. 2. Fusiform dilation of the ascending thoracic aorta, stable in appearance since the exam dated 01/05/2021. Ground Support Equipment Assembler: PSCB Transcribe Date/Time: May 01 2021 8:27A Dictated by : MASSIMO OAKES MD This examination was interpreted and the report reviewed and electronically signed by: MASSIMO OAKES MD on May 01 2021 8:49AM EST [facility] (n[facility]ative)[facility] Chest WO contrastOrdered By: [facility] Provider on 34-83-4934Cyyxnaugh ClinicCreatinineon 43-34-6830Iouuetzftx mass conc1.47 mg/dLHigh0.50-1.30EMH HealthcareComment on above:Performed By: #### [id number] ####[facility] [address] [place], [place] [address]LVO/1.73 sq M.predicted MDRD vol rate/area48 mL/min/{1.73_m2}NormalEMH HealthcareComment on above:Result Comment: Interpretation for Chronic Kidney Disease:Stages 1&2 >60 Healthy or potential kidney damage.Mild decrease of GFR.Stage 3 30-59 Moderate decrease of GFR.Stage 4 15-29 Severe decrease of GFR.Stage 5 <15 Kidney failure or on dialysis. Performed By: #### [id number] ####[facility] [address] [place], [place] [address]Yuqbdinlkaa Panelon 47-89-8826Fbhdw gap 3 molar conc 10 mmol/FDwpnxh55-18ZYY HealthcareComment on above:Performed By: #### [id number] ####[facility] [address] [place] [address] Chloride molar hnev420 mmol/NCzbl35-650VZN HealthcareComment on above:Performed By: #### [id number] ####[facility] [address] [place], [place] [address]ZVZ1 molar conc (Bld)25 mmol/KFjsdkb88-03JQG HealthcareComment on above:Performed By: #### [id number] ####[facility] [address] [place], [place] [address]Bauswjhyj molar conc4.2 mmol/LNormal 3.5-5.1EMH HealthcareComment on above:Performed By: #### [id number] ####[facility] [address] [place], [place] [address]Yqhoms molar gxfa060 mmol/YGtubca639-968FOZ HealthcareComment on above:Performed By: #### [id number] ####[facility] [address] [place], [place] [address]Zbla Nitrogenon 50-05-1624Bgrz nitrogen mass conc32 mg/dLHigh6-23EMH HealthcareComment on above:Performed By: #### [id number] ####[facility] [address] [place] [address] Vital Signs Date TimeVital SignValuePerforming ItowhmshoYeudhltd47-65-9741 10:130400Body usstng799.1 cmRadha Burris MD Work Phone: [phone]SmithvilleJurkdbwxoy72-62-3923 10:130400Body mass index (BMI) [Ratio]30.21 kg/x0OzzjxydnRadha Burris MD Work Phone: [phone] [address]-25-2025 10:13040Body .57 kgRadha Burris MD Work Phone: [phone])[facility] [place] [address]-25-2025 10:130400Diastolic blood qjadvrdo27 mm[Hg]Radha Burris MD Work Phone: [phone]90[place] [address]Clrakunnrp21-01-3649 10:130Heart rate80 /min Radha Burris MD Work Phone: [phone] [place] [address]-25-2025 10:139744VpU2% (BldA) [Mass fraction]96 %Radha Burris MD Work Phone: [phone] [address]Ezdvboyzlm75-83-3016 10:130Systolic blood tvetrkod374 mm[Hg]Radha Burris MD Work Phone: [phone]–SmithvilleWdvgfwkeme45-28-9115 09:00-0400Body mass index (BMI) [Ratio]29.12 kg/d0WeltqShivani Adams DIRECTOR OF PAYROLL Work Phone: [phone] [address]Lvzshochgd86-02-4868 09:00-0400Body qahxnd202.31 kgShivani Adams DIRECTOR OF PAYROLL Work Phone: [phone] [address]Ktoficqshy46-53-2307 09:00-0400Diastolic blood izryzscr10 mm[Hg]Shivani Adams DIRECTOR OF PAYROLL Work Phone: [phone] [address]Euqygwzufp46-87-8231 09:00-0400Heart rate75 /min Shivani Adams DIRECTOR OF PAYROLL Work Phone: NOEx[facility] CenterTxmqegchxd20-14-4724 09:00-7288RjS1% (BldA) [Mass fraction]99 %Shivani Adams DIRECTOR OF PAYROLL Work Phone: NOExcels[facility] Medical CenterBnzjegkycx83-73-4990 09:00-0400Systolic blood liohwgtr732 mm[Hg]Shivani Adams DIRECTOR OF PAYROLL Work Phone: NOExcelsior Springs Medical CenterNvbbvbaigw11-29-3342 11:21-0400Body vktboc799.1 cmKatyris Bernstein POWERHOUSE MECHANIC HELPER.CREOSOTING ENGINEER Work Phone: [facility]07-22-2025 11:21-0400Body mass index (BMI) [Ratio]28.31 kg/t4Jxgqqcfpo Bernstein POWERHOUSE MECHANIC HELPER.CREOSOTING ENGINEER Work Phone: [phone]07-22-2025 11:21-0400Body usvdij579.13 kgAbby Bernstein POWERHOUSE MECHANIC HELPER.CREOSOTING ENGINEER Work Phone: [phone]07-22-2025 11:21-0400Diastolic blood laarbany80 mm[Hg]Abby Bernstein POWERHOUSE MECHANIC HELPER.CREOSOTING ENGINEER Work Phone: [phone]07-22-2025 11:21-0400Heart rate83 /min Abby Bernstein POWERHOUSE MECHANIC HELPER.CREOSOTING ENGINEER Work Phone: [phone]07-22-2025 11:21-1752KaQ7% (BldA) [Mass fraction]98 %Abby Bernstein POWERHOUSE MECHANIC HELPER.CREOSOTING ENGINEER Work Phone: [phone]07-22-2025 11:21-0400Systolic blood zakqhedi864 mm[Hg]Abby Bernstein POWERHOUSE MECHANIC HELPER.CREOSOTING ENGINEER Work Phone: [phone]07-10-2025 13:07-0400Body .1 cmPaul Biedenbach DO Work Phone: [facility]SmithvillePtfeucdhpw07-55-4445 13:07-0400Body mass index (BMI) [Ratio]28.89 kg/m2Paul Biedenbach DO Work Phone: noExcelsior Springs Medical CenterOxbmuakytg45-07-0462 13:07-0400Body txwwyf903.4 kgPaul Biedenbach DO Work Phone: [phone]-[facility]–SmithvilleYptdltgzfq75-62-4926 14:39-0400Body wocxfs417.1 cmPaul Biedenbach DO Work Phone: [phone]-[facility]–SmithvilleMufppcxuai63-82-2307 14:39-0400Body mass index (BMI) [Ratio]28.89 kg/m2Paul Biedenbach DO Work Phone: [facility]–SmithvilleVfzluvwads23-59-3647 14:39-0400Body nubokw932.4 kgPaul Biedenbach DO Work Phone: [phone]–SmithvilleLdgcafpfaw28-14-2860 15:12-0400Body wkbhde049.1 cmPaul Biedenbach DO Work Phone: [phone]–SmithvilleYzgrkmxlno16-19-4063 15:12-0400Body mass index (BMI) [Ratio]28.89 kg/m2Paul Biedenbach DO Work Phone: [phone]-[facility]–SmithvilleCijhdasxfd82-89-0733 15:12-0400Body .4 kgPaul Biedenbach DO Work Phone: [phone]-[facility]–SmithvilleZrxsptlwnk35-01-2728 14:29-0400Body fgywth799.1 cmPaul Biedenbach DO Work Phone: [phone]-[facility]–SmithvilleEhmltpstub11-85-8142 14:29-0400Body mass index (BMI) [Ratio]28.89 kg/m2Paul Biedenbach DO Work Phone: [phone] [place], [place] [address]Wuvfjajode88-66-9321 14:29-0400Body .4 kgPaul Biedenbach DO Work Phone: [phone])[facility] HospitalC[facility]–SmithvilleYwyoxavcae09-69-0704 14:53-0400Body shopei564.1 Iesha Adams DIRECTOR OF PAYROLL Work Phone: [facility]–SmithvilleFhjbnhlykl36-66-6138 14:53-0400Body mass index (BMI) [Ratio]28.98 kg/k7BkuigShivani Adams DIRECTOR OF PAYROLL Work Phone: [phone] [place], [place] 9071305-14-2025 14:53-0400Body temperature 98.91 [degF]Shivani Adams DIRECTOR OF PAYROLL Work Phone: [phone] [place], [place] 9071305-14-2025 14:53-0400Body inirht503.76 kgShivani Adams DIRECTOR OF PAYROLL Work Phone: [phone] [place], [place] 9071305-14-2025 14:53-0400Diastolic blood txeeqpnr87 mm[Hg]Shivani Adams DIRECTOR OF PAYROLL Work Phone: [phone])[address] [place], [place] 9071305-14-2025 14:53-0400Heart rate77 /min Shivani Adams DIRECTOR OF PAYROLL Work Phone: [phone] [place], [place] 9071305-14-2025 14:53-6767VpK1% (BldA) [Mass fraction]98 %Shivani Adams DIRECTOR OF PAYROLL Work Phone: [phone] [place], [place] 9071305-14-2025 14:53-0400Systolic blood ezlugevn877 mm[Hg]Shivani Adams DIRECTOR OF PAYROLL Work Phone: [phone] [place], [place] 9071305-02-2025 14:10-0400Body mass index (BMI) [Ratio]28.96 kg/y4LreumojrRadha Burris MD Work Phone: [phone] [place], [place] 9071305-02-2025 14:10-0400Body temperature 99.1 [degF]Radha Burris MD Work Phone: [phone] [place], [place] 9071305-02-2025 14:10-0400Body dcojco306.67 kgRadha Burris MD Work Phone: [phone] [place], [place] 9071305-02-2025 14:10-0400Diastolic blood bdwspedw76 mm[Hg]Radha Burris MD Work Phone: [phone])[address] [place], [place] 9071305-02-2025 14:10-0400Heart rate76 /min Radha Burris MD Work Phone: [phone])[address] [place], [place] 9071305-02-2025 14:10-2488LpF5% (BldA) [Mass fraction]96 %Radha Burris MD Work Phone: noEx[facility] Medical CenterKyboorbzez54-50-5617 14:10-0400Systolic blood rqfybnxe654 mm[Hg]Radha Burris MD Work Phone: NOExcels[facility] Springs Medical CenterTrfcejvwft22-26-0225 08:53-0400Body uzifiy607.1 cmChristophreese Pina DO Work Phone: NOEx[facility] Medical CenterPbebqocugg68-50-0293 08:53-0400Body mass index (BMI) [Ratio]28.08 kg/v3Yfrucigoesv Hassett DO Work Phone: NOExcelsior Springs Medical CenterLcotlvxice96-09-5636 08:53-0400Body eghxxf414.22 kgChristopher Pina DO Work Phone: NOEx[facility] Medical CenterKqdiscwuzl10-07-4732 08:53-0400Diastolic blood yiumsfef29 mm[Hg]Christnadine Pina DO Work Phone: [facility]SmithvilleMjwqlyqkss95-54-4874 08:53-0400Heart rate80 /min Christnadine Pina DO Work Phone: NOEx[facility] Medical CenterEvlcjdades45-88-8949 08:53-0400Systolic blood clktuvep705 mm[Hg]Christnadine Pina DO Work Phone: NOExcels[facility] Springs Medical CenterHtporlmxqk01-41-2749 09:48-0400Body .1 Thad Redding MD Work Phone: NOExcels[facility] Medical CenterXxslacvcmx66-86-1050 09:48-0400Body mass index (BMI) [Ratio]29.7 kg/u5QpmzkLatoya Redding MD Work Phone: NOEx[facility] Medical CenterJetbadmdgs32-30-2989 09:48-0400Body modxht778.57 kgLatoya Redding MD Work Phone: NOEx[facility] Medical CenterAbfdidzzzv76-85-0245 09:48-0400Diastolic blood uvnzzxhz96 mm[Hg]Latoya Redding MD Work Phone: NOExcelsior Springs Medical CenterCrhcedovgg61-59-2382 09:48-0400Heart rate78 /min Latoya Redding MD Work Phone: 1(535)810-[address] [place], [place] [address]Oxbyuezkvn10-25-3506 09:48-0400Respiratory rate18 /minLatoya Redding MD Work Phone: [phone])793-[address] [place], [place] [address]Muqmmhikzx52-98-4576 09:48-3054OyA8% (BldA) [Mass fraction]96 %Latoya Redding MD Work Phone: [phone]04-21-2025 09:48-0400Systolic blood irxznmow594 mm[Hg]Latoya Redding MD Work Phone: [phone])[address]03-17-2025 10:01-0400Body nwviia860.1 cmAgregg Redding MD Work Phone: [phone])[address] [place], [place] 4587903-17-2025 10:01-0400Body mass index (BMI) [Ratio]29.35 kg/o6PhwwgLatoya Redding MD Work Phone: 1(255)[facility] [place], [place] [address]Yxmrsgnakd95-90-7649 10:01-0400Body uuyznq073.21 kgLatoya Redding MD Work Phone: [phone])[address]03-17-2025 10:01-0400Diastolic blood hwifkxhw70 mm[Hg]Latoya Redding MD Work Phone: [phone] [place], [place] [address]Bffxbosnvf34-02-9453 10:01-0400Heart rate77 /min Latoya Redding MD Work Phone: [phone] [place], [place] [id number] 10:01-0400Respiratory rate16 /minLatoya Redding MD Work Phone: [phone] [place], [place] [id number] 10:01-3171ZjG4% (BldA) [Mass fraction]98 %Latoya Redding MD Work Phone: 1(145)[facility] [place], [place] [id number] 10:01-0400Systolic blood enwzhtzz429 mm[Hg]Latoya Redding MD Work Phone: 1([phone])[address]03-03-2025 13:10-0500Body mass index (BMI) [Ratio]29.19 kg/f2Eggtabmuhhn Silvana DO Work Phone: noExcels[facility] CenterSxnpaxuyot46-47-9302 13:10-0500Body leobyv063.58 kgChristopher Silvana DO Work Phone: [facility]villeXptautpjzn33-37-5367 13:10-0500Diastolic blood mm[Hg]Christzaider Silvana DO Work Phone: [facility]villeAehjvocgjf08-40-9855 13:10-0500Heart rate91 /min Christopher Silvana DO Work Phone: [facility]villeNdzjwjghxa81-31-2986 13:10-7953XdX9% (BldA) [Mass fraction]98 %Christnadine Pina DO Work Phone: [facility]villeOionsufcqc78-90-0986 13:10-0500Systolic blood vwumrvxo101 mm[Hg]Christzaider Silvana DO Work Phone: [facility]villeJfwwmfpcam70-77-7552 09:45-0500Body mass index (BMI) [Ratio]29.54 kg/y1PfoysouyEleonora Leo DIRECTOR OF PAYROLL Work Phone: [facility]villeEhgytithns51-30-4765 09:45-0500Body temperature 95.9 [degF]Eleonora Leo DIRECTOR OF PAYROLL Work Phone: [phone]SmithvilleFuuwjhbpjc13-38-2487 09:45-0500Body nqzgjo085.94 kgEleonora Leo DIRECTOR OF PAYROLL Work Phone: [facility]villeUisiqjvlbt14-36-7329 09:45-0500Diastolic blood gaccgkto02 mm[Hg]Eleonora Leo DIRECTOR OF PAYROLL Work Phone: [facility]villeWxtpufnnnn31-23-1404 09:45-0500Heart rate67 /min Eleonora Leo DIRECTOR OF PAYROLL Work Phone: [facility]villeDabfaekrxu43-65-3412 09:45-8837MiN8% (BldA) [Mass fraction]99 %Eleonora Leo DIRECTOR OF PAYROLL Work Phone: [facility]villeQkfubpburc03-56-5694 09:45-0500Systolic blood vmuesbtb367 mm[Hg]Eleonora Simonradha DIRECTOR OF PAYROLL Work Phone: 1(078)088[place] [address]-17-2024 08:51-0400Body epkvvf357.1 cmRadha Burris MD Work Phone: 1(009)[address] [place] [address]-17-2024 08:51-0400Body mass index (BMI) [Ratio]27.43 kg/y0FmouanzkRadha Burris MD Work Phone: 1(732)[address] [place] [address]-17-2024 08:51-0400Body jjfgiu683.68 kgRadha Burris MD Work Phone: 1(880)[address] [place] [address]-17-2024 08:51-0400Diastolic blood mm[Hg]Radha Burris MD Work Phone: 1(348)[facility] [place] [address]-17-2024 08:51-0400Heart rate74 /min Radha Burris MD Work Phone: 1(434)[facility] [place] [address]-17-2024 08:51-7113VaQ1% (BldA) [Mass fraction]97 %Radha Burris MD Work Phone: 1(822)[address] [place] [address]-17-2024 08:51-0400Systolic blood nfywnley888 mm[Hg]Radha Burris MD Work Phone: 1(082)[address] [place], [place] 9071309-30-2024 16:04-0400Body mass index (BMI) [Ratio]27.04 kg/o3Kmnnbwt Vigil DIRECTOR OF PAYROLL Work Phone: 1(993)[address] [place] [address]-30-2024 16:04-0400Body temperature 97.3 [degF]Sofia Hellerk DIRECTOR OF PAYROLL Work Phone: 1(070)[address] [place] [address]-30-2024 16:04-0400Body kmkqce914.14 kgChchyna Vigil DIRECTOR OF PAYROLL Work Phone: 1(013)[address] [place] [address]-30-2024 16:04-0400Diastolic blood njdfuqkm08 mm[Hg]Sofia Vigil DIRECTOR OF PAYROLL Work Phone: 1(943)124-62[place] [address]Bjkarppyro76-34-2492 16:04-0400Systolic blood qynnxlxq686 mm[Hg]Sofia Sommerspatrick DIRECTOR OF PAYROLL Work Phone: 1(331)637-67[place] [address]Ppwondmpvc22-34-1207 13:24-0400Body skphoo028.1 Iesha Adams DIRECTOR OF PAYROLL Work Phone: 1([phone]villeQaecqktzgr24-28-7180 13:24-0400Body mass index (BMI) [Ratio]27.53 kg/o3JrzzyShivani Adams DIRECTOR OF PAYROLL Work Phone: 1(480)111-88[place] [address]Aklxtubfen28-64-5551 13:24-0400Body .05 kgShivani Adams DIRECTOR OF PAYROLL Work Phone: 1(500)505-[address] [place] [address]-23-2024 13:24-0400Diastolic blood mm[Hg]Shivani Admas DIRECTOR OF PAYROLL Work Phone: 1(435)193-[address] [place], [place] [address]Fgrkdnvnhm85-64-3939 13:24-0400Heart rate84 /min Shivani Adams DIRECTOR OF PAYROLL Work Phone: 1(392)236-[address] [place] [address]-23-2024 13:24-4296RhE8% (BldA) [Mass fraction]96 %Shivani Adams DIRECTOR OF PAYROLL Work Phone: 1(151)231-[address] [place] [address]-23-2024 13:24-0400Systolic blood nucuqtbm350 mm[Hg]Shivani Adams DIRECTOR OF PAYROLL Work Phone: 1(515)535-[address] [place], [place] [address]Urocyrizsy93-52-1854 09:31-0400Body sxwesc418.1 Estevan Burris MD Work Phone: 1(526)986-[address] [place] [address]-03-2024 09:31-0400Body mass index (BMI) [Ratio]27.62 kg/e0IdzinuksRadha Burris MD Work Phone: 1(354)400-[address] [place] [address]-03-2024 09:31-0400Body cludka390.41 Ronni Burris MD Work Phone: 1(326)212-[address] [place] [address]-03-2024 09:31-0400Diastolic blood mdasdeim50 mm[Hg]Radha Burris MD Work Phone: 1(773)344-96[facility]villeLgvrkjdprz26-78-4856 09:31-0400Heart rate79 /min Radha Burris MD Work Phone: 1(040)[address]09-03-2024 09:31-4648BrJ3% (BldA) [Mass fraction]97 %Radha Burris MD Work Phone: 1(185)537[facility]30[facility]villeMzpuutfyds81-82-4479 09:31-0400Systolic blood gruleyur577 mm[Hg]Radha Burris MD Work Phone: 1(410)[address]12-26-2023 11:58-0500Diastolic blood tmeofprz39 mm[Hg]MD Radha Burris Work Phone: 1(404)[address] [place], [place] 3279612-26-2023 11:58-0500 Heart rate60 /minMD Radha Burris Work Phone: 1(509)[address] [place], [place] 327[address]12-26-2023 11:58-0500 Respiratory rate16 /minMD Radha Burris Work Phone: 1(327)[address]12-26-2023 11:58-0500 SaO2% (BldA) [Mass fraction]100 %MD Radha Burris Work Phone: 1(277)[address] [place], [place] 3279612-26-2023 11:58-0500 Systolic blood wlzldian381 mm[Hg]MD Radha Burris Work Phone: 1(869)[address] [place], [place] 3279612-26-2023 09:35-0500 Body klhgre469.12 cmMD Radha Burris Work Phone: 1(507)[address]12-26-2023 09:35-0500 Body .13 kgMD Radha Burris Work Phone: 1(298)[address]11-29-2023 14:00-0500 Body heightImad Asaad Other [employer] Other 11-29-2023 14:00-0500Body xzhlol904.58 cmMD Radha Burris Work Phone: [facility]11-29-2023 14:00-0500 Body mass index (BMI) [Ratio]30.34 kg/m2Imad Asaad Other [facility] [employer] Other 11-29-2023 14:00-0500Body uqlwfn596.08 kgImad Asaad Other [facility] [employer] Other 11-29-2023 14:00-0500Body flyvyn545.07 kgMD Radha Pickardsarina Fatuma Work Phone: [facility]11-29-2023 14:00-0500 Diastolic blood lerrbrrn73 mm[Hg]Imad Asaad Other [facility]11-29-2023 14:00-0500 Systolic blood ydohjepl079 mm[Hg]Imad Asaad Other [facility]10-12-2023 14:51-0400 Body mass index (BMI) [Ratio]28.89 kg/v0KlozmlsYossi Chen MD Work Phone: [facility]10-12-2023 14:51-0400 Body uispun547.4 Christiano Chen MD Work Phone: [facility]09-11-2023 15:12-0400 Body gseipr275.1 cmCjosé miguel Richardson APRN.CREOSOTING ENGINEER Work Phone: [facility]09-11-2023 15:12-0400Body wrrbal203.76 kgCatotis Richardson APRN.CREOSOTING ENGINEER Work Phone: [facility]09-11-2023 15:12-0400Diastolic blood mrpnfoze22 mm[Hg]Kassie Richardson POWERHOUSE MECHANIC HELPER.CREOSOTING ENGINEER Work Phone: [facility]09-11-2023 15:12-0400Heart rate69 /min Kassie Richardson POWERHOUSE MECHANIC HELPER.CREOSOTING ENGINEER Work Phone: [facility]09-11-2023 15:12-0400Systolic blood dsyeboxv613 mm[Hg]Kassie Richardson POWERHOUSE MECHANIC HELPER.CREOSOTING ENGINEER Work Phone: [facility]08-10-2023 13:43-0400Body gcieed536.12 cmWarrennnifer Liliya Fatuma Work Phone: 1(569) [phone]-Sldbat [facility] [place] [address] DO Work Phone: 1(121) 286-323808-10-2023 13:43-0400Body mass index (BMI) [Ratio] 29.24 kg/z1Toezkfyu R Fatuma Work Phone: 1(768) [phone]-Iklomk [facility] 201 DO Work Phone: 1(121) 627-429608-10-2023 13:43-0400Body surface area Derived from formula2.49 h3Rhxodnnt R Fatuma Work Phone: mp263-4494MN-Jzzzyt [facility] [place] 201 DO Work Phone: 1(839) 774-628808-10-2023 13:43-0400Body cpsiwv830.76 kgWarrenbranifer R Fatuma Work Phone: mp111-7713QK-Yuxqto [facility] [place] 201 DO Work Phone: 1(921) 644-993407-24-2023 14:23-0400Body vjguai728.12 cmJennifer R Fatuma Work Phone: 1(630) 785-7669635-8251ZA-Govhsa [facility] 201 DO Work Phone: 1(987) 164-611207-24-2023 14:23-0400Body mass index (BMI) [Ratio] 29.82 kg/k6Qoastsnq R Fatuma Work Phone: 1(265) [phone]-Oxvzil [facility] [place] 201 DO Work Phone: 1(445) 212-742107-24-2023 14:23-0400Body surface area Derived from formula2.52 q9FsgawfnrRadha Burris Work Phone: mp137-4062PV-Xagyxi [facility] 201 DO Work Phone: 1(738) 422-224507-24-2023 14:23-0400Body sytydm182.03 kgRadha Burris Work Phone: mp648-3888VB-Hxfmas [facility] 201 DO Work Phone: 1(758) 380-818007-24-2023 14:23-0400Diastolic blood ogmpnnjv19 mm[Hg] Radha Burris Work Phone: mp658-7045CE-Wbwwjh [facility] 201 DO Work Phone: 1(816) 265-687007-24-2023 14:23-0400Heart rate77 /minRadha Burris Work Phone: mp889-6836VZ-Dikezb [facility] 201 DO Work Phone: 1(191) 941-981707-24-2023 14:23-0400Systolic blood ynfiqlgl719 mm[Hg] Radha Burris Work Phone: mp822-0049WR-Pgfkex [facility] 201 DO Work Phone: 1(582) 254-214506-29-2023 14:32-0400Diastolic blood tiykqfyi29 mm[Hg] Infusion 3 Work Phone: [facility]06-29-2023 14:32-0400Heart rate68 /min Infusion 3 Work Phone: [facility]06-29-2023 14:32-0400Respiratory rate 14 /minInfusion 3 Work Phone: [facility]06-29-2023 14:32-0400Systolic blood stmipbqa604 mm[Hg]Infusion 3 Work Phone: [facility]05-11-2023 07:01-0400Body .4 Hugh Diego MD Work Phone: [facility]05-11-2023 07:01-0400 Body mass index (BMI) [Ratio]33.41 kg/g0VlwwipsBeth Diego MD Work Phone: [facility]05-11-2023 07:01-0400 Body .6 kgBeth Diego MD Work Phone: [facility]04-28-2023 10:33-0400 Body .12 cmRadha Burris Work Phone: 1(454) [phone]-Jqxbhzcqqxejvr-[place] [address] Work Phone: 1(481) 580-589404-28-2023 10:33-0400Body mass index (BMI) [Ratio] 29.99 kg/r0LhpnlzmaRadha Burris Work Phone: 1(355) 517-4127717-1196KI-Sxpxzfvctknnsj-[place] [facility] [address] Work Phone: 1(559) 876-540504-28-2023 10:33-0400Body surface area Derived from formula2.52 s4YqkoixbqRadha Burris Work Phone: 1(608) [phone]-Zarmxyzjabsjdk-[place] [facility] [address] Work Phone: 1(630) 745-603804-28-2023 10:33-0400Body hyuaaxdouun60.8 [degF] Radha Burris Work Phone: 1(817) [phone]-Ipgsmcmylwelji-[place] [facility] [address] Work Phone: 1(463) 145-531604-28-2023 10:33-0400Body nlapoa326.71 kgRadha Burris Work Phone: 1(623) [phone]-Ithdmmqdpxkovl-[place] [address] Work Phone: 1(961) 931-683304-28-2023 10:33-0400Diastolic blood geyjsrmi98 mm[Hg] Radha Burris Work Phone: 1(633) [phone]-Qhhpulyhbiumsb-[place] [address] Work Phone: 1(679) 524-360804-28-2023 10:33-0400Heart rate82 /minRadha Burris Work Phone: mg062-6289BB-Huidedbyuxawzd-[place] [facility] [address] Work Phone: 1(909) 194-612104-28-2023 10:33-0400Respiratory rate16 /minRadha Burris Work Phone: mg755-1002GR-Wvyjbbpwcdtlcb-[place] [facility] [address] Work Phone: 1(347) 254-210404-28-2023 10:33-0642PqO6% (BldA) [Mass fraction]98 % Radha Burris Work Phone: mg733-4006ZT-Hqwertahssccwv-[place] [facility] [address] Work Phone: 1(182) 525-505504-28-2023 10:33-0400Systolic blood rljaajbc920 mm[Hg] Radha Burris Work Phone: mg858-9459KS-Yqexcrtkatvblg-[place] [facility] 052 Work Phone: 1(384) 699-196704-06-2023 14:25-0400Diastolic blood bvezcycr70 mm[Hg] Infusion 3 Work Phone: [facility]04-06-2023 14:25-0400Heart rate88 /min Infusion 3 Work Phone: [facility]04-06-2023 14:25-0400Systolic blood gcoirjmx259 mm[Hg]Infusion 3 Work Phone: [facility]03-28-2023 08:57-0400Body bamlll651.12 cmRadha Burris Work Phone: 1(419) [phone]-RrxpowtvawhvoySan[facility] 4106 Work Phone: 1(138) 128-327503-28-2023 08:57-0400Body mass index (BMI) [Ratio] 29.08 kg/g3PgyhjiwoRadha Burris Work Phone: 1(203) 394-7370990-2162CW-AlefouoxcvtfhhSan[facility] 4100 Work Phone: 1(714) 401-987003-28-2023 08:57-0400Body surface area Derived from formula2.49 k3IarxppzqRadha Burris Work Phone: 1(341) 565-5107842-6108FW-ZxpisalfhdqsqqSan[facility] 2285 Work Phone: 1(386) 954-970203-28-2023 08:57-0400Body omebvrmudbm61.8 [degF] Radha Burris Work Phone: 1(448) [phone]-DjeocgckqvxcurSouth[facility] 8937 Work Phone: 1(197) 489-875003-28-2023 08:57-0400Body fkwzeb463.13 kgRadha Burris Work Phone: 1(363) [phone]-QgrxrmxrrozqsoSan[facility] 0073 Work Phone: 1(419) 633-148209-16-2022 14:08-0400Respiratory rate16 /minMaxgabriel Saul MD Work Phone: b[facility]09-16-2022 09:00-0400Diastolic blood mskfvetv30 mm[Hg]John Saul MD Work Phone: [facility]-16-2022 09:00-0400Heart rate63 /minMaxgabriel Saul MD Work Phone: [facility]-16-2022 09:00-0400Systolic blood afuhcgfz797 mm[Hg]John Saul MD Work Phone: [facility]-16-2022 07:45-0400Body nkzepvupgrv22.9 [degF]John Saul MD Work Phone: [place] [address]-16-2022 07:45-0037EmL2% (BldA) [Mass fraction]98 %John Saul MD Work Phone: [place] [address]-14-2022 06:00-0400Body mass index (BMI) [Ratio]29.47 kg/o1Yccingabriel Saul MD Work Phone: [place] [address]-14-2022 06:00-0400Body .67 kgMaxim Dorys VAZQUEZ Work Phone: bon [facility] [employer] SolutionsHXYHBK11-64-1025 23:43-0400Body .1 cmMaxim Dorys VAZQUEZ Work Phone: bon [facility] [employer] SolutionsWASXKQ33-83-9449 16:00-0400Body heightSrubi oFx Other [employer] Other 06-13-2022 16:00-0400Body mass index (BMI) [Ratio] 30.71 kg/o2Vcpjjykeon Fox Other [facility] Other 06-13-2022 16:00-0400Body keluib799.48 kgShkeon Fox Other [facility] Other 06-13-2022 16:00-0400Diastolic blood iufkygnw41 mm[Hg] Thor Fox Other [employer] Other 06-13-2022 16:00-2581PzQ8% (BldA) [Mass fraction]97 % Thor Fox Other [facility] Other 06-13-2022 16:00-0400Systolic blood hpbmnmis187 mm[Hg] Thor Fox Other [employer] Other 05-11-2022 10:15-0400Body Richard Estrada Other [employer] Other 05-11-2022 10:15-0400Body mass index (BMI) [Ratio] 30.76 kg/d2DywdbLashawn Estrada Other [employer] Other 05-11-2022 10:15-0400Body bnwpfo371.66 kgPeggy Estrada Other [employer] Other 05-11-2022 10:15-0400Diastolic blood hfqowfgd93 mm[Hg] Lashawn Estrada Other [employer] Other 05-11-2022 10:15-0400Respiratory rate18 /minPeggy Estrada Other [employer] Other 05-11-2022 10:15-4941EdS1% (BldA) [Mass fraction]96 % Lashawn Estrada Other [employer] Other 05-11-2022 10:15-0400Systolic blood uaanzbct890 mm[Hg] Lashawn Estrada Other [employer] Other 04-14-2022 16:45-0400Body heightSshu Ruddy Other [employer] Other 04-14-2022 16:45-0400Body mass index (BMI) [Ratio] 30.73 kg/d7CgxncyThor Fox Other [employer] Other 04-14-2022 16:45-0400Body mobvwh202.57 kgShrajisophia Ruddy Other [employer] Other 04-14-2022 16:45-0400Diastolic blood jljvtpqu83 mm[Hg] Thor Ruddy Other [employer] Other 04-14-2022 16:45-8283PaU3% (BldA) [Mass fraction]98 % Thor Fox Other [employer] Other 179509-15-9184 16:45-0400Systolic blood afvfmhmg589 mm[Hg] Thor Fox Other [employer] Other 288797-28-3601 13:30-0500Body Gcqwvhltrmd02.1 [degF][address], AP04-88-5979 13:30-0500BP Gretwafqt06 mm[Hg][address], IJ91-64-7396 13:30-0500BP Ypkgrhuu348 mm[Hg][address], FB05-99-9337 13:30-0500Pulse (Heart Rate)69 /min[address], [place] 03-11-2020 13:30-0500Respiratory Rate18 /min[address], GM65-49-6373 09:45-0500Pulse Hqnurxyu73 %[address], TE38-97-1406 13:16-0500BMI (Body Mass Index)28 kg/k9IxnrabHoag [facility] 201 Work Phone: 1(123) 881-450211-12-2019 13:16-0500Body pfvndu322.88 kgA[facility] 201 Work Phone: 1(195) 636-144711-12-2019 13:16-0500BP Xyqjfejua56 mm[Hg][facility] 201 Work Phone: comment on above:Location: LUE; Position: Sitting 03-03-2019 13:16-0500BP Dtqzamej127 mm[Hg][facility] 201 Work Phone: comzaig on above:Location: LUE; Position: Sitting 03-03-2019 13:16-0500BSA (Body Surface Area)2.45 k7DyipcqAurora Sinai [facility] [place] 201 Work Phone: 1(122) 535-540711-12-2019 13:164283Dogslw846.12 cmSjulián Luong YT-Kjszmpskg-Ldcvuoevk 201 Work Phone: 1(231) 960-973211-12-2019 13:16-0500Pulse (Heart Rate)81 /minSjulián LuongBobmvoHQ-Ghhfukyel-Epjvmomkt 201 Work Phone: 1(474) 846-512011-12-2019 13:160500Pulse Pkgbymwv91 %Chris Luong PQ-Brtktelzg-Xknosbcqf 201 Work Phone: comment on above:Source: RA Encounters Encounter DateEncounter TypeCare ProviderFacilityStart: 02-20-2025 End: 31-63-7820Pscwtt encounterRadha Burris MD Work Phone: [facility]Start: 02-11-2025 End: 30-80-2730znpomuhknpOJRMFPRTC M FOXFacility:[facility] Hospitaltart: 02-33-7717ahxjdbefriGCOYKettering Health Daytontart: 01-29-2025 End: 39-54-6117Damxrtk encounter Ana Armstrong [facility] Work Phone: Start: 01-29-2025 End: 03-47-0924llycqguemlPcpghzwwLaura Burris MD Work Phone: [facility] Work Phone: Start: 01-19-2025 End: 75-87-0413wffwzijxdzCVQSCAI [facility] Centertart: 01-14-2025 End: 98-99-9658Fzpttevinod Burris MD Work Phone: NO [facility]Start: 01-14-2025 End: 16-84-8779Rhwsazruddy Burris MD Work Phone: NOMS [facility]Start: 01-14-2025 End: 87-19-6209Vmehwu outpatient visit 15 minutesJennifer Fatuma MD Work Phone: noMS [facility] MedicineComment on above:Dizziness (Primary Dx); Pain in both lower extremities; Acquired hypothyroidismStart: 01-14-2025 End: 72-30-2880upwavrtdcyMDYUUPIF HOHMANNot AvailableStart: 01-07-2025 End: 37-16-4407hlaoqtoopjGCEUSNOFM M FOXFacility:[facility] Hospitaltart: 12-31-2024 End: 06-55-3259tsoyflihpmQTXMPMount Carmel Health Systemtart: 12-29-2024 End: 06-37-2848UrbznqVlmau Kampfer DIRECTOR OF PAYROLL Work Phone: noMS [facility] MedicineComment on above:Acquired hypothyroidismStart: 12-25-2024 End: 05-76-6171Vampkz flowsGhassan Adams DIRECTOR OF PAYROLL Work Phone: noMS [facility] MedicineStart: 12-25-2024 End: 80-08-7810Bmhmxc flowsheetStoo Adams DIRECTOR OF PAYROLL Work Phone: NOM[facility] MedicineStart: 12-25-2024 End: 39-01-5714Nkadqb outpatient visit 25 minutesShivani Adams DIRECTOR OF PAYROLL Work Phone: noMS [facility] MedicineComment on above:Muscle cramps (Primary Dx); Acquired hypothyroidism ; Hypocalcemia; Stage 3b chronic kidney disease ([facility])Start: 12-25-2024 End: 91-20-7568wqkaaqxraqBJDBK KAMPFERNot AvailableStart: 12-15-2024 End: 74-35-0536Zklzcptgx Result EncounterGeneric External Data ProviderNOMS External Department UnsolicitedStart: 12-15-2024 End: 99-48-7657Jayjeogzb Result EncounterGeneric External Data ProviderNOMS External Department UnsolicitedStart: 12-15-2024 End: 41-80-7269Mhvcajgto encounterAbby Bernstein POWERHOUSE MECHANIC HELPER.CREOSOTING ENGINEER Work Phone: NeurologyComment on above:Received Outside Medical RecordsStart: 12-15-2024 End: 16-52-1690myiczzgocqAPBCSMWHG M FOXFacility:[facility] Hospitaltart: 12-14-2024 End: 67-78-5739hgjqxqpohfQwsrhmdoiJanae Bernstein APRN.CNP Work Phone: NeurologyComment on above:Test resultsStart: 12-11-2024 End: 21-63-0550N-mail encounter from caregiverAbby Bernstein APRN.CNP Work Phone: NeurologyStart: 12-11-2024 End: 94-83-5679Lhjtqx-up encounterAbby Bernstein APRN.CNP Work Phone: NeurologyComment on above:Follow upStart: 11-12-2024 ambulatoryBLSUTTER AUBURN FAITH HOSPITALUBBUUC Medical Centertart: 11-10-2024 End: 65-49-2148Mxwqjok encounter procedureAbby Bernstein APRN.CNP Work Phone: NeurologyComment on above:Orthostatic lightheadedness (Primary Dx); Ptosis of right eyelid; Hoarseness of voice; Disturbance of skin sensation; Abnormality of gait and mobility; Falls frequently; Orthostatic hypotension; Voice disturbanceStart: 11-10-2024 End: 89-46-5310smkmmdbfrfTUKCIQOGC M FOXFacility:[facility] Hospitaltart: 10-29-2024 End: 45-41-5778Sjjwlb flowsheetPaul S Biedenbach DO Work Phone: [facility]oms [facility] NORWALKStart: 10-29-2024 End: 73-89-1762Rouugs flowsheetPaul S Biedenbach DO Work Phone: [facility] NORWALKStart: 10-29-2024 End: 41-30-3989Vrqwvi outpatient visit 15 minutesPaul S Biedenbach DO Work Phone: [facility]oms [facility] NORWALKComment on above:Nasal septal deviation (Primary Dx); Chronic maxillary sinusitis; OAF (sonny-antral fistula)Start: 10-29-2024 End: 88-99-2367fruyzesjbzUTOX S BIEDENBACHNot AvailableStart: 10-15-2024 End: 47-41-6971Uettuz follow up visit related to original pxPaul S Biedenbach DO Work Phone: [facility] Pan on above:Nasal septal deviation (Primary Dx); Chronic maxillary sinusitisStart: 10-15-2024 End: 58-99-4055ggvfylqzixFACZ S BIEDENBACHNot AvailableStart: 10-15-2024 End: 80-98-6718Uoqeka flowsheetPaul S Biedenbach DO Work Phone: [facility] USMANKStart: 10-15-2024 End: 96-36-5424Tenoxc flowsheetPaul S Biedenbach DO Work Phone: [facility] OPALtart: 10-07-2024 End: 81-29-7807Fuwnbzhlh to same day surgery centerPaul S Biedenbach [facility] Start: 10-07-2024 End: 95-75-8251kvmfvzgurhBdog S BiedenbachFacility:FTMCStart: 10-01-2024 [facility]ertart: 09-25-2024 End: 46-31-3386azwmmagdrjGzrm S BiedenbachFacility:FTMCStart: 09-25-2024 End: 51-47-8819Gagqecq encounter procedurePaul S Biedenbach [facility] Start: 09-22-2024 End: 88-70-1443Qhzmxr outpatient visit 25 minutesPaul S Biedenbach DO Work Phone: [facility] Pan on above:Nasal septal deviation (Primary Dx); Acute non-recurrent maxillary sinusitis; OAF (sonny-antral fistula)Start: 09-22-2024 End: 19-82-7245wblpiebrqpAJXI S BIEDENBACHNot AvailableStart: 09-22-2024 End: 71-04-4662Trqqoq flowsheetPaul S Biedenbach DO Work Phone: [facility] NORWALKStart: 09-22-2024 End: 54-30-3013Mxfppw flowsheetPaul S Biedenbach DO Work Phone: [facility] NORWALKStart: 09-08-2024 End: 02-11-2470Htpmoy outpatient new 45 minutesPaul S Biedenbach DO Work Phone: [facility] NORSURENDRAKComment on above:Nasal septal deviation (Primary Dx); Acute non-recurrent maxillary sinusitis; Abnormal CT scan, sinus; OAF (sonny-antral fistula)Start: 09-08-2024 End: 09-32-8767tdqhgargazZBIX S BIEDENBACHNot AvailableStart: 09-08-2024 End: 04-54-0192Klebhn flowsheetPaul S Biedenbach DO Work Phone: [facility] NORWALKStart: 09-08-2024 End: 84-17-0756Vmpzsd flowsheetPaul S Biedenbach DO Work Phone: [facility] NORSURENDRAKStart: 09-02-2024 End: 34-37-3668Ykqprg outpatient visit 15 minutesShivani Adams DIRECTOR OF PAYROLL Work Phone: [facility] FNR FMComment on above:Acute non-recurrent maxillary sinusitis (Primary Dx)Start: 09-02-2024 End: 88-16-6585bnocpindznCJQYC KAMPFERNot AvailableStart: 09-02-2024 End: 90-39-7865Rkxyum Dileep Adams DIRECTOR OF [employer] Work Phone: [facility] FNR FMStart: 09-02-2024 End: 62-28-9373Wmryhp Dileep Adams DIRECTOR OF [employer]RO[employer] Work Phone: [facility] FNR FMStart: 09-02-2024 End: 61-65-6651Wjvuvizht Result EncounterGeneric External Data ProviderNOMS External Department UnsolicitedStart: 96-81-8299evwecqubczLVHIGrant Hospitaltart: 08-21-2024 End: 40-88-1108Umoipk outpatient visit 25 minutesRadha Burris MD Work Phone: [facility] FNR FMComment on above:Dental infection (Primary Dx)Start: 08-21-2024 End: 24-95-5145zachbmciqlPRXOQZVS HOHMANNot AvailableStart: 08-21-2024 End: 78-02-4428Owbrzo Wes Burris MD Work Phone: [facility] FNR FMStart: 08-21-2024 End: 40-22-9366Jfffbcruddy Burris MD Work Phone: [facility] FNR FMStart: 08-19-2024 End: 87-05-5413Xcnokf flowsheetChristopher Silvana DO Work Phone: a[facility] BELLEVUEStart: 08-19-2024 End: 73-50-8275Kwskng flowsheetChristopher Silvana DO Work Phone: a[facility] BELLEVUEStart: 08-19-2024 End: 08-10-1758Texwiv outpatient visit 25 minutesChristopher Silvana DO Work Phone: aNA BELLEVUEComment on above:Cranial neuropathy (Primary Dx); WeaknessStart: 08-19-2024 End: 32-82-7455yrkwocaucqKVCTLEFTBZI HASSETTNot AvailableStart: 08-17-2024 ambulatoryKindred Healthcaretart: 08-10-2024 End: 27-18-8476Aqdeglvinod Redding MD Work Phone: NOXM ENDOCRINOLOGYStart: 08-10-2024 End: 71-40-7516Cleblkruddy Redding MD Work Phone: noms ENDOCRINOLOGYStart: 08-10-2024 End: 55-64-2782Fgpkzm outpatient visit 40 minutesLatoya Redding MD Work Phone: noms ENDOCRINOLOGYComment on above:Low serum parathyroid hormone (PTH) (Primary Dx); Hypocalcemia; Vitamin D deficiency; Postoperative hypothyroidism (CMS/HCC); Postsurgical hypoparathyroidism (CMS/HCC); Stage 3a chronic kidney disease (HCC) (CMS/HCC)Start: 08-10-2024 End: 08-17-4391ifiwyggfbkXQHBBBill Mccord AvailableStart: 08-03-2024 End: 05-57-1393Evfdjogds Result EncounterGeneric External Data ProviderNOMS External Department UnsolicitedStart: 08-03-2024 End: 06-91-8086Jjcimzpgm Result EncounterGeneric External Data ProviderNOMS External Department UnsolicitedStart: 07-14-2024 End: 98-87-8514pycpydkcqxPKFDYXHMNLVKettering Health [facility] Start: 07-06-2024 End: 50-31-5684Pofmfk outpatient new 45 minutesLatoya Redding MD Work Phone: noms ENDOCRINOLOGYComment on above:Postsurgical hypoparathyroidism (CMS/HCC) (Primary Dx); Low serum parathyroid hormone (PTH); Hypocalcemia; Vitamin D deficiency; Postoperative hypothyroidism (CMS/HCC)Start: 07-06-2024 End: 57-18-8252zoixrkdhazSAPMQ F SABBAGHNot AvailableStart: 07-02-2024 End: 70-06-4483Gtasjazql Result EncounterGeneric External Data ProviderNOMS External Department UnsolicitedStart: 07-02-2024 End: 85-82-8223Ojuixxahu Result EncounterGeneric External Data ProviderNOMS External Department UnsolicitedStart: 06-22-2024 End: 44-77-1101Fpikuy outpatient new 45 minutesChristopher [facility] Work Phone: ana BELLEVUEComment on above:Weakness (Primary Dx); Acquired ptosis of right eyelid; Cranial neuropathyStart: 06-22-2024 End: 62-40-5404mpsyocpugjWCDTNLXGQIM HASSETTNot AvailableStart: 06-10-2024 End: 58-04-7496ImnrraMeredith Adams DIRECTOR OF PAYROLL Work Phone: NOJT FNR FMComment on above:Acquired hypothyroidism (CMS/HCC)Start: 06-09-2024 End: 16-43-2241Rlrxyj flowsheetPatricia A Ahmet DIRECTOR OF PAYROLL Work Phone: NOMS FNR FMStart: 06-09-2024 End: 14-48-7043Rprrok flowsheetPatricia A Halleenradha DIRECTOR OF PAYROLL Work Phone: NOPE FNR FMStart: 06-09-2024 End: 47-68-0002Wmiksvs encounter procedurePaandria Leo DIRECTOR OF PAYROLL Work Phone: noms FNR FMComment on above:Restless legs syndrome (Primary Dx); POTS (postural orthostatic tachycardia syndrome); Aneurysm of ascending aorta without rupture (CMS/HCC); Arteriosclerosis of coronary artery (CMS/HCC); Paroxysmal atrial fibrillation (CMS/HCC); Coronary artery disease involving agdaagux heart, unspecified vessel or lesion type, unspecified [...] Medicare annual wellness visit, subsequentStart: 06-09-2024 End: 45-53-3663fxabarvkyoJBWUPSOH A AHMETNot AvailableStart: 06-04-2024 End: 59-59-3457Uvsqokznb Result EncounterGeneric External Data ProviderNOMS External Department UnsolicitedStart: 06-04-2024 End: 30-53-4564Vltgxhvbs Result EncounterGeneric External Data ProviderNOMS External Department UnsolicitedStart: 05-27-2024 End: 67-02-5693Jwmukwavo encounterSylvia Nancy MANOMS FNR FMStart: 05-19-2024 End: 25-86-0850Nwmtgn Lisa Burris MD Work Phone: NOMS FNR FMComment on above:Ptosis of both eyelids (Primary Dx)Start: 05-18-2024 End: 29-46-4964JtijjhLoexgrg A Vigil DIRECTOR OF PAYROLL Work Phone: noms FNR FMComment on above:Acquired hypothyroidism (CMS/HCC)Start: 05-12-2024 End: 64-36-7745Froudeywj Result EncounterGeneric External Data ProviderNOMS External Department UnsolicitedStart: 05-12-2024 End: 23-05-0326Eixswnszz Result EncounterGeneric External Data ProviderNOMS External Department UnsolicitedStart: 05-07-2024 End: 34-44-5361Riostgwyk Result EncounterGeneric External Data ProviderNOMS External Department UnsolicitedStart: 05-07-2024 End: 83-62-5447Gsuibfqsc Result EncounterGeneric External Data ProviderNOMS External Department UnsolicitedStart: 12-68-8174yqjdelhimrOHJTSACMiami Valley Hospitaltart: 04-23-2024 End: 22-21-2594Nskshl Lisa Burris MD Work Phone: noms FNR FMComment on above:Restless leg (Primary Dx) Start: 99-94-0796Xyvehbmdrt and management of inpatientYAVAPAI REGIONAL MEDICAL CENTERI [facility] CAMPUSDUniCleveland Clinic Medina Hospitaltart: 14-16-3286Peatunjrgv and management of inpatientDayton Osteopathic Hospitaltart: 52-29-6029Oaakrhjuwi and management of inpatientNORTHEAST HEALTH SYSTEMAD [facility] Start: 99-74-4495Wydtqnxwx department patient visitRAMIA FERRERAEESt. Francis Hospitaltart: 80-77-1921Coqvaxbza department patient visitMARGO FELIZSt. Francis Hospitaltart: 04-08-2024 End: 86-81-6017Euzzrtuuqy and management of inpatientOMAR [facility]tart: 04-08-2024 End: 45-49-9130jxljlpevgpUYBWYMount Carmel Health Systemtart: 03-16-2024 End: 83-66-2950Aznssfhdq Result EncounterGeneric External Data ProviderNOMS External Department UnsolicitedStart: 03-16-2024 End: 18-64-7217Fzhpdpxen Result EncounterGeneric External Data ProviderNOMS External Department UnsolicitedStart: 03-11-2024 End: 40-97-7081xartbjlqrsETIKSMount Carmel Health Systemtart: 03-03-2024 End: 70-39-6248Prvakiqhw identifierDerek L [place] Work Phone: jis GrotonStart: 71-29-3248dgfazletstIzgdf L [place] [facility] OrthopedicsStart: 02-10-2024 End: 10-39-5029Nsfnstran encounterRadha Burris MD Work Phone: NOMS FNR FMComment on above:Dermatitis (Primary Dx) Start: 02-06-2024 End: 71-82-0590Wkiedf flowsOsorio Burris MD Work Phone: NOMS FNR FMStart: 02-06-2024 End: 63-65-2895Tzumhq Wes Burris MD Work Phone: NOMS FNR FMStart: 02-06-2024 End: 63-81-5804Fyexaxmjggww care manage srvc 7 day dischargeRadha Burris MD Work Phone: NOMS FNR FMComment on above:Anxiety (Primary Dx); Dermatitis; Paroxysmal atrial fibrillation (CMS/HCC)Start: 02-06-2024 End: 22-37-8956GhifhzYgxhgvsa Amita Ahmet DIRECTOR OF PAYROLL Work Phone: NOEX FNR FMComment on above:Acquired hypothyroidism (CMS/HCC)Arteriosclerosis of coronary artery (CMS/HCC) (Primary Dx); Atypical angina (CMS/HCC)Start: 01-20-2024 End: 49-92-3744Vcdygs outpatient visit 15 minutesChristy Amita Vigil DIRECTOR OF PAYROLL Work Phone: NOMS FNR FMComment on above:Irritant contact dermatitis due to other agents (Primary Dx)Start: 01-20-2024 End: 08-69-0397jzorlrergoAEXLCPH Amita Tomas AvailableStart: 01-13-2024 End: 94-52-8374Chmrde Dileep Adams DIRECTOR OF PAYROLL Work Phone: noMS FNR FMStart: 01-13-2024 End: 38-70-8631Nezuqj Dileep Adams DIRECTOR OF PAYROLL Work Phone: NOMS FNR FMStart: 01-13-2024 End: 97-53-9947Qonody outpatient visit 15 minutesSapetra Adams DIRECTOR OF PAYROLL Work Phone: noms FNR FMComment on above:Dermatitis (Primary Dx); Chronic kidney disease, stage 3a (HCC) (CMS/HCC); Atherosclerosis of aorta (CMS/HCC); Thoracic aortic ectasia (CMS/HCC)Start: 01-06-2024 End: 24-24-8205Kacggbokm identifierDerek L [place] Work Phone: jis Grotonhood river: 01-02-2024 End: 85-92-2411Gqfawy outpatient visit 25 minutesDerek L [place] Work Phone: jis [facility]: 12-24-2023 End: 04-37-9453Zghezk Wes Burris MD Work Phone: noMS FNR FMStart: 12-24-2023 End: 39-05-3305Jwxznt Wes Ramiresan MD Work Phone: NOJP FNR FMStart: 12-24-2023 End: 20-63-1907Qlcucf outpatient visit 15 minutesRadha Burris MD Work Phone: NOQB FNR FMComment on above:Diarrhea, unspecified type (Primary Dx); Autonomic dysfunction; Angina at rest (CMS/HCC)Start: 54-68-4268Cndpkv encounterRadha Burris MD Work Phone: MetroHealthStart: 06-10-2023 End: 81-53-4640jiddoxqezvFQ Radha Ashish Burris Work Phone: [facility] Work Phone: Start: 06-10-2023 End: 96-04-0897Psadswo encounter procedureMD Radha Burris Work Phone: [facility]-CT Scan Main [place] Work Phone: Start: 06-08-2023 End: 50-94-0725Tqurcjnrs Result EncounterGeneric External Data ProviderNOMS External Department UnsolicitedStart: 06-08-2023 End: 27-14-0414Emgsoomej Result EncounterGeneric External Data ProviderNOMS External Department UnsolicitedStart: 06-07-2023 End: 75-27-0971Dgzcqbklc Result EncounterGeneric External Data ProviderNOMS External Department UnsolicitedStart: 06-07-2023 End: 26-67-3127Irhjlmsos Result EncounterGeneric External Data ProviderNOMS External Department UnsolicitedStart: 62-88-7897Lodemudmp Result Encounter Generic External Data ProviderNOMS External Department UnsolicitedStart: 92-06-7067Ftsyzdycc Result EncounterGeneric External Data ProviderNOMS External Department UnsolicitedStart: 05-31-2023 End: 84-06-1101oxnvrltrxjGwbs Shannon APRN.CNP Work Phone: NeurologyComment on above:Orthostatic hypotension (Primary Dx); Jennette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)Start: 05-31-2023 End: 47-29-5606Casapgclxkag consultation with Janeth Pearl APRN.CNP Work Phone: [facility] MAINStart: 05-30-2023 End: 75-87-5650gefmzvkmmdSzwq Asaad Other [employer] Other Start: 58-18-6724Dahtrwtkv encounterImad AsaadFPG GastroenterologyStart: 00-41-6775Pixdnj encounterRadha Burris MD Work Phone: [facility]HealthStart: 05-20-2023 End: 72-45-7738bjstyzaispOykf Asaad Other [employer] Other Start: 28-49-7448Ttrwifiyn encounterImad AsaadFPG GastroenterologyStart: 04-26-2023 End: 94-07-6170norutayrmlGjpn Asaad Other [employer] Other Start: 61-06-0445Uwyqjycsk encounterImad AsaadFPG GastroenterologyStart: 04-24-2023 End: 10-35-8558qoyeuxavhvDxed Asaad Other [employer] Other Start: 42-22-0523Ffbslnwts encounterImad AsaadFPG GastroenterologyStart: 04-16-2023 End: 16-11-0161Eomwlfwjn to same day surgery centerMD Radha Burris Work Phone: [facility] Work Phone: Start: 04-16-2023 End: 82-06-3218mocmsybrklEWMD Radha Burris Work Phone: [facility] Work Phone: Start: 04-09-2023 End: 66-75-3388czbabuvrqsBcgf Asaad Other [employer]Pur[employer] Other Start: 83-64-8524Uqamevozw encounterImad AsaadFPG GastroenterologyStart: 04-01-2023 End: 86-97-8337hcgzctnvsaMvsp Asaad Other nouniversity of [facility]ouri health care [employer] Other Start: 38-80-6229Rltncsvxo encounterImad AsaadFPG GastroenterologyStart: 03-21-2023 End: 56-87-8303Pwohtw outpatient visit 15 minutesDonn Ashish Ceballos Work Phone: [facility] CampusanyStart: 03-20-2023 End: 63-88-5406ldznysjwxvWtmz Asaad Other nouniversity of missouri health care [employer] Other Start: 83-53-4835Mswlfg outpatient new 45 minutesImad AsaadFPG GastroenterologyStart: 03-20-2023 End: 09-27-7595Vyyuqtf encounter procedureMD Radha Burris Work Phone: [facility]-FPG Gastroenterology Work Phone: Start: 02-25-2023 End: 98-58-9541lzlntcvygtVyee Biopsy Work Phone: NeurologyStart: 02-25-2023 End: 13-02-7658Wszrspd encounter procedureSkin Biopsy Work Phone: [facility] MAINStart: 51-87-2225Fvoogjmkx encounterKyle Maria R AGGARWAL Work Phone: NeurologyComment on above:Results ([facility] ) Start: 02-01-2023 End: 66-50-9288piqxmwshvvMECUUQARMcKitrick Hospitaltart: 02-01-2023 End: 61-98-1664Hikwysfgnn hospital visit by physicianEly Ct 2[facility] LittletonComment on above:Left lower quadrant abdominal painStart: 02-01-2023 End: 03-36-0250bxorwsaentVFXGQEBTrinity Health System East Campus Start: 01-31-2023 End: 07-23-4081xwaxpqykahAWRKUQAHamilton Medical Center AmbulatoryStart: 01-31-2023 End: 83-58-8217Jrbhwr outpatient visit 25 minutesYossi Chen MD Work Phone: [facility] OttawaComment on above:Diarrhea, unspecified type (Primary Dx); Left lower quadrant abdominal painStart: 13-05-9770oiuthtfzvzJqadGoldie Pearl APRN.CNP Work Phone: NeurologyComment on above:TiltStart: 37-09-0042Z-mail encounter from Kimberly Pearl APRN.CNP Work Phone: c[facility] MAINStart: 96-81-9229Gphrakijv encounterMaría Pearl APRN.CNP Work Phone: NeurologyComment on above:Results ([facility] )Start: 58-41-1917lqlttzausiSkocGoldie Pearl APRN.CNP Work Phone: NeurologyComment on above:Test resultsStart: 12-31-2022 End: 17-17-0548Cqaqruf encounter procedureCatotis Richardson APRN.CNP Work Phone: NeurologyComment on above:Autonomic dysfunction (Primary Dx); Dizzy spellsStart: 29-13-3017Xlkief follow up visit related to original px Radha Burris Work Phone: [phone]-Zacjsl [facility] [place] [address] DO Work Phone: Start: 60-48-5776rjhpkddzulRembulatoryDr. Yossi Chen Facility:9307Start: 64-43-4250Vccov Guerda Burris Work Phone: [phone]-Aoeask [facility] 201 DO Work Phone: Start: 89-64-8488Iubxqi follow up visit related to original Ana Marai Burris Work Phone: [phone]) [phone]-Bcbujh [facility] [address] DO Work Phone: Start: 27-21-2053hzqstxxfhmVt. Yossi Chen Facility:9307Start: 11-22-2022 End: 67-44-8484Utioyfdffm and management of inpatientDr. Yossi Chen Facility:9507Start: 35-74-1893Gfmwbjnhj encounterCathy Satish Richardson POWERHOUSE MECHANIC HELPER.CREOSOTING ENGINEER Work Phone: NeurologyComment on above:Received Outside Medical Records ()Start: 31-18-6637osokzbgwajQk. Yossi ChenFacility:9307Start: 12-04-3866EKOQLUmjauoqs R Hohman Work Phone: [phone]-NmeahmmwrsifbaNortheast [facility] Work Phone: start: 34-10-8784kkphdhfcayWw. Arabella ButtFacility:9498Start: 45-54-9540hmpquexgifFoqvk Satish Richardson POWERHOUSE MECHANIC HELPER.CREOSOTING ENGINEER Work Phone: NeurologyComment on above:ReactionStart: 10-18-2022 End: 34-39-3885sagdfvdoesBpckegpt Main Chair 3 Work Phone: NeurologyComment on above:Chronic migraine without aura, with intractable migraine, so stated, with status migrainosus (Primary Dx) Start: 10-15-2022 End: 12-95-0608qekmxhcggaHc. Arabella ButtFacility:9531Start: 10-15-2022 End: 54-02-9012Rabiwixqja hospital visit by Katelyn Butt MD Work [...] joint, bilateral; Personal history of nicotine dependence; snf (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 of aspirin; Allergy status to penicillin; Allergy status to other antibiotic agentsStart: 81-03-4726qqwjkdrvfvCm. [facility] State Hospitalcility:9531Start: 96-48-3503Vxzztaspk for preprocedural cardiovascular examinationDr. [facility] Devang Rika [facility]–Appletontart: 91-39-9251DKOMBJqspotsp R Hohman Work Phone: [facility] Work Phone: Start: 41-31-4269Bk [facility] Regional HealthRadha Burris Work Phone: [phone]-DuziqfgghsuqnxSanford Medical Center 4108 Work Phone: Start: 98-50-0574Pvzldv outpatient visit 25 minutes Radha Burris Work Phone: [phone]-JxxlovytkolvdiNortheast [facility] Medical Center [facility] Work Phone: start: 41-29-7751GOLLUFIZIO, Provider: Ruby Daily, Status: Pen, Time: 2:30 PMRadha Burris Work Phone: [phone]-Nciftzfba [facility] [address] Work Phone: Start: 91-79-1527tboylhtgpfHm. Nina Wanning Zhao Facility:[facility]tart: 36-57-5302Fvztit outpatient visit 10 minutesRadha Burris Work Phone: [phone]-Iefiwmdpm [facility] [address]84 Work Phone: Start: 19-38-4075wajvveuukzGq. Ranjana AbdallanFacility:9448Start: 09-13-2022 End: 35-51-8459goorxuwxnoGr. Ruby DailyFacility:[facility]ENTERtart: 09-04-2022 Office outpatient visit 40 minutesRadha Burris Work Phone: [phone]-Kdvfgeyrscmkix-[place] Work Phone: start: 02-90-2317qybcjoorhuIi. Ruby Daily Facility:[facility]tart: 08-30-2022 End: 15-81-8731ujjrufcmcwEv. 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 Radha Burris Facility:AMCStart: 38-52-5199Ykunsdb tobacco non-user cad cap copd pv dmRadha Burris Work Phone: [phone]-Jqjvozwtxcsycb-[place] [address] Work Phone: Start: 50-20-1259acmrfqpqdgKp. Arabella Devang Frasertammy ButtFacility:9498Start: 52-61-4658ogvdjowlltSi. Radha Burris Facility:[address]Idswy: 17-19-9842Gdkxyan encounter procedureRadha Burris Work Phone: [facility] [address] [place] Work Phone: Start: 77-66-9390qlwaznqfzsXa. Ruby Daily Facility:9531Start: 70-31-9505Pvcxej outpatient visit 40 minutesJevinay Burris Work Phone: [phone]-Qnjtgwoijecret-[place] Work Phone: start: 72-08-4212Pnirfqj encounter procedureRadha Burris Work Phone: [phone]-Sswdaqwxrqirsx-[place] Work Phone: start: 69-64-5342MRSKKOZNJP, Provider: Ruby Daily, Status: Pen, Time: 12:30 PMRadha Burris Work Phone: [facility] [address] [place] Work Phone: Start: 23-23-0638gbxwqjfcesUf. Ruby Daily Facility:9448Start: 53-31-7791nspwlvwrdgRd. Radha Trina BurrisFacility:[address] Start: 59-49-9858Kbsbhdn encounter procedureRadha Burris Work Phone: [facility] [address] [place] Work Phone: Start: 76-17-1053kaelzpagrpReptv J Dobrowski APRN.CREOSOTING ENGINEER Work Phone: NeurologyComment on above:After effectsStart: 07-26-2022 End: 42-61-2795yvvtmicgegIzutappm Main Chair 3 Work Phone: NeurologyComment on above:Chronic migraine without aura, with intractable migraine, so stated, with status migrainosus (Primary Dx) Start: 12-43-5647iskezaovkpVgvnhKassie Richardson APRN.CNP Work Phone: NeurologyComment on above:What's next?Start: 33-99-2083yyynyffkrwCbAmarjit Godinezerine LiannenFacility:9507Start: 07-17-2022 Office outpatient visit 25 minutesRadha Burris Work Phone: [phone]-PfrsvjvoabmaoxNortheast [facility] Voice Work Phone: Start: 08-68-7021Zxhnkyv encounter procedureRadha Burris Work Phone: [phone]-CygcgtdzyipwudSanford Medical Center 4100 Work Phone: Start: 50-26-8486owrsgqlmmoWzDr. Ranjana Schulzacility:9448Start: 31-37-3116nphathrinoUxltpDavid Richardson APRN.CNP Work Phone: NeurologyComment on above:Test resultsStart: 06-04-2022 End: 85-88-2672fyprbzesbiTI KIM Lilly BRYNNFacility:A9Ntjqk: 62-65-8176gianrpmkxhviola Richardson APRN.CNP Work Phone: NeurologyComment on above:Today's visitStart: 39-71-3204I-mail encounter from caregiverKassie Richardson APRN.CNP Work Phone: [facility] MAINStart: 05-31-2022 End: 52-39-7583Xgldfco encounter procedureKassie Richardson APRN.CNP Work Phone: NeurologyComment on above:Chronic migraine without aura, intractable, without status migrainosus (Primary Dx); Aphasia; Other specified transient cerebral ischemiasStart: 00-27-4249Ndxszq solomon Burris MD Work Phone: [facility]HealthStart: 03-22-2022 End: 17-96-6387ssqpmaaqgxERQIIXF TUCKERFacility:A3Rpjhw: 02-05-2022 End: 59-88-7664jrmusxdvvqGD [facility]ER CENTERacility:B2Yydgk: 01-09-2022 End: 05-68-5090plhhskiodlNS LEXI G SAMANTHAFacility:D7Ouoqh: 01-01-2022 End: 63-06-1621Imwcljmcqe and management of inpatientVERO Levi [facility] Centertart: 12-31-2021 End: 91-03-9565Yuxqgklsdn and management of inpatientJohn Saul MD Work Phone: stvz Renal//Med SurgComment on above:Acute pancreatitis, unspecified complication status, unspecified pancreatitis type (Primary Dx); Gall stone pancreatitis; EMELIA (acute kidney injury) (HCC)Start: 12-31-2021 End: 42-85-5860eazqhiurplYV RADHA BURRISFacility:K8Uolnj: 12-30-2021 End: 78-84-4434opzrgpxyswMY MAYELIN RODRIGUEZFacility:N9Ojtae: 12-29-2021 End: 72-08-9619etvydsmifmAN VERONICA YOUNGFacility:C9Zqtzn: 12-12-2021 End: 36-24-4357Pqfrhzhnfu and management of inpatientRADHA RAMIRESAN Facility:[facility]MCStart: 12-08-2021 End: 44-80-0748uyzqhnoxteSDGTGLF TUCKERFacility:F0Mjkna: 67-86-4405Uzhzwscev for preprocedural laboratory examinationDR [facility] Start: 11-21-2021 End: 39-04-5968pjermhmvqtSACMCTLB HOHMANFacility:UTMCStart: 11-17-2021 End: 97-32-0866ptumymizlsZW [facility]ER CENTERacility:G4Crezw: 11-17-2021 End: 76-75-8939Hffieemnp for preprocedural laboratory examinationDR MONO SIMSRODDYELFacility:Q4Csfsl: 11-16-2021 End: 36-51-7498dbzukhitmcIC RADHA BURRISFacility:R2Xyjfq: 11-09-2021 End: 95-59-7154apttpeeqouYTRUZHYB HOHMFLAKOFacility:UTMCStart: 10-03-2021 End: 68-47-1725catamanwiqSR Donnell AntoineerFacility:A8Dxria: 10-03-2021 End: 69-35-8463beojmmvohkKNTUPIX MEJIAERFacility:L1Pmetj: 10-02-2021 End: 92-50-3419wwoafixtozFxfzly Ruddy Other [employer] Other Start: 32-38-5860Dqpmoj outpatient visit 15 minutes Thor ZakyFPG Pain ManagementStart: 09-27-2021 End: 15-60-6791hhsmnaqffwIGVGIGY TUCKERFacility:M1Qinat: 08-30-2021 End: 45-82-7506apqelrrdhfRltug Estrada Other [employer]Pur[employer]Bricks [employer] Other Start: 28-92-7723Vupstk outpatient visit 15 minutes Lashawn HartFPG Pain ManagementStart: 08-15-2021(Procedure) KimberleyMuhlenberg Community Hospitalsophia FoxNorthwest Medical Centerlilly [facility] CenterStart: 08-15-2021 End: 06-67-5033xelfevveyyByhshw Ruddy Other [employer] Other Start: 08-03-2021 End: 18-01-8467plywamshbfWlwkjr Ruddy Other [employer] Other Start: 35-03-0874Dznelu outpatient visit 25 minutes Thor ZakyFPG Pain ManagementStart: 07-27-2021(Procedure) Aston Mason [facility] CenterStart: 07-27-2021 End: 03-42-2205klogzbgtddFzdwks Zaky Other nouniversity of missouri health care [employer] Other Start: 07-18-2021(Procedure) Aston FoxNorthwest Medical Centerlilly [facility] CenterStart: 07-18-2021 End: 91-11-8402ylhqqdeijjYcotvi Zaky Other nouniversity of [facility]ouri health care [employer] Other Start: 07-03-2021 End: 28-08-1182Mxkxso outpatient visit 15 minutesDerek L [place] Work Phone: jis GrotonStart: 06-21-2021 End: 67-91-6659Jijthp outpatient new 30 minutesDerek L [place] Work Phone: jis [facility] Hospitalart: 05-01-2021 End: 89-24-0287Tvyascazoj hospital visit by physicianMet[facility] Stro (I-Stat) Work Phone: RadiologyComment on above:Shortness of breath [R06.02] Start: 03-11-2020 End: 83-84-0933Usdshsc encounter procedureJEVINAY RASMUSSENASHTABULA GENERAL HOSPITALEllen [facility] Hospitaltart: 03-11-2020 End: 41-19-9683Boudiwedvm hospital visit by physicianMount [facility] 3MALZ OP INFUSIONComment on above:ArrivedStart: 02-10-2020 End: 23-60-1645wyxxqcxgytGQCFYSB PROVIDERFacility:METROHealthStart: 10-20-2019 Patient encounter procedureNelsvicky IgbvwaEI-Vftoyaltsxjkmc-Niozzit [facility] 4[address] Work Phone: Start: 20-15-1883Tixnmde encounter procedureNelsvicky HerIeuefyAD-Xljkbiblhggnmi-SqmcahxSanford Medical Center [facility] 4100 Work Phone: Start: 79-07-9758Jrboujb encounter procedureNelsvicky IhhahwZO-Roabhjihafbzlq-InslucySanford Medical Center [facility] 4100 Work Phone: Start: 45-73-2489Bgsvnoh encounter procedureNelson ZwqetxPA-Dzcjtwizkamgqp-Spwdubw [facility] 4[address] Work Phone: Start: 75-31-2127Apotkwe encounter procedureNelsvicky HerSelect [facility] 3315 Work Phone: Start: 25-46-7391Byhmoxk encounter procedureNelson [facility] 3315 Work Phone: Start: 80-79-4050Iktbxjv encounter procedureNelson [facility] 33[facility] Work Phone: Start: 58-28-7926Sdbaedb encounter procedureNelsvicky [facility] 3315 Work Phone: Start: 09-76-7768Tixegtf encounter procedureMIKHELIO BRITTAUSFacility:[id number] Procedures DateProcedureProcedure DetailPerforming ClinicianStart: 32-66-3540BY brain spect Heike Burris MD Work Phone: Start: 45-48-0320FFI ACETYLCHOLINE REC BINDING AB Generic External Data ProviderStart: 78-24-3026Gesnhbnpaj biopsy of nasal sinus Lalito Kellypanchitogalo start: 39-42-8925UD ECHO DOPPLER COMPLETEGeneric External Data ProviderStart: 53-03-8845NIWHptjlli External Data ProviderStart: 66-64-6306KXTKdoyqjh External Data ProviderStart: 74-96-7659SVAIhvnmpx External Data ProviderStart: 81-75-2625TMGLttbiwt External Data ProviderStart: 05-07-2024 ITPGeneric External Data ProviderStart: 71-52-5299Csuoqq-up visitFollow-upBLAIR GRUBBStart: 79-36-6274PosywhidejjIozuggcj Hohman MD Work Phone: Start: 03-16-2024. DIFFICILE PCRGeneric External Data ProviderStart: 01-02-2024 End: 69-84-9561Qhkir spine cervical 4 or 5 viewsDerek Los Angeles MDStart: 06-10-2023 Computed tomography of abdomen and pelvis with contrastMD Radha Burris Work Phone: Start: 38-01-1417TV ECHO DOPPLER COMPLETEGeneric External Data ProviderStart: 02-01-4596ZL ARASELI PERF SPECT REST STRGeneric External Data ProviderStart: 73-09-5267JHT KAPPA/LAMBDA FREE SERUMGeneric External Data ProviderStart: 04-16-2023 End: 10-21-7715GxnqbelgfodCB Radha Burris Work Phone: Start: 03-21-2023 End: 00-98-8828Zknpb spine cervical 4 or 5 viewsDerek Los Angeles MDStart: 02-01-2023 CT ABDOMEN PELVIS W IV CONTRASTYOSSI THEODOREtart: 84-82-9567MKHSU PATHOGEN PANEL, PCRJENNIFER HOHMANStart: 47-43-0203Ve abdomen & pelvis w/contrast materialYossi Chen MD Work Phone: Start: 49-34-9320Dydag metabolic 2000 panel - Serum or PlasmaJENNIFER HOANStart: 13-04-5569ALOZTXFL PATHOLOGY RESULTSBeth Diego MD Work Phone: Start: 35-88-2127Nuepnszgnirim flexible transoral diagnosticJennifer Trina Burris MD Work Phone: start: 83-82-8683Drpcc metabolic panel calcium total Dariela Walker MD Work Phone: Start: 52-02-5815Lyzph count complete auto&auto difrntl wbcSgrant Walker MD Work Phone: Start: 42-55-0429TMHLU METABOLIC PANEL W/ REFLEX TO MG FOR LOW KBrshan Campos MD Work Phone: Start: 90-57-9451XGXKMXA, SEPSISJames T Villalpando DO Work Phone: Start: 54-85-2353Pscwn of urine sodiumElio Campos MD Work Phone: Start: 01-57-9305NOSRLSNDWIM, URINEElio Campos MD Work Phone: Start: 20-07-0003Tqcxcyhppx microscopic onlyElio Campos MD Work Phone: Start: 21-86-7808Gczpy dip stick/tablet rgnt auto w/o microscopyElio Campos MD Work Phone: Start: 53-78-1010Aqdeh of nephelometry each analyte nesElio Campos MD Work Phone: Start: 00-61-0964Mpozadoabj antigen each component Elio Campos MD Work Phone: Start: 64-91-9240HCGUNUXMQIIMXH SERUM PROFILEElio Campos MD Work Phone: Start: 68-00-6849PCFHEIM, SEPSISJames T Villalpando DO Work Phone: Start: 42-26-2350Jluxg of lipaseJames T Villalpando DO Work Phone: Start: 42-15-0246PXFKV METABOLIC PANEL W/ REFLEX TO MG FOR LOW KJames T Villalpando DO Work Phone: Start: 78-40-9485Tmpjwlq function panelJames T Villalpando DO Work Phone: Start: 06-61-6169VXOJUZD, SEPSISJames T Villalpando DO Work Phone: Start: 45-85-4101BQHBMKD, SEPSISJames T Villalpando DO Work Phone: Start: 36-50-3727BLGVY METABOLIC PANEL W/ REFLEX TO MG FOR LOW Minda Campos MD Work Phone: Start: 27-29-4941XZQSGNX, SEPSISJames T Villalpando DO Work Phone: Start: 79-70-2264JNIPMJHB PATHOLOGY REPORTAmer Romero Matos MD Work Phone: Start: 01-02-2022 End: 83-69-3998Tona surg cholecystectomy w/cholangiographyAmer Antonino Matos MD Work Phone: Start: 09-64-4953Mj retroperitoneal real time w/image limitedDariela Walker MD Work Phone: Start: 33-04-7398Vijgq of lipaseJames T Villalpando DO Work Phone: Start: 35-77-6563UGNNJ METABOLIC PANEL W/ REFLEX TO MG FOR LOW KJames T Villalpando DO Work Phone: Start: 91-29-0932Niskksp function panelJames T Villalpando DO Work Phone: Start: 89-40-7214KKRVFDU, SEPSISJames T Villalpando DO Work Phone: Start: 82-01-0664HHXXHJV, SEPSISJames T Villalpando DO Work Phone: Start: 48-27-1120PUSUYNW, SEPSISJames T Villalpando DO Work Phone: Start: 65-74-2823Oghrj of troponin quantitativeNohelia Morris POWERHOUSE MECHANIC HELPER - CREOSOTING ENGINEER Work Phone: Start: 1953YZDJAGN, SEPSISJames T Villalpando DO Work Phone: Start: 71-37-9785Qto abdomen w/o contrast material Jewel A Liliana POWERHOUSE MECHANIC HELPER - CREOSOTING ENGINEER Work Phone: Start: 18-78-5692Wxsya of troponin quantitativeNohelia Morris POWERHOUSE MECHANIC HELPER - CREOSOTING ENGINEER Work Phone: Start: 92-94-7986Dsyne count complete automatedMaxim Dorys VAZQUEZ Work Phone: Start: 34-17-8666DDPKDAHALLTHIzqew Zlatopolsky MD Work Phone: Start: 99-48-2039Txzgkmaqav glycosylated o1xDwetn Dorys VAZQUEZ Work Phone: Start: 03-59-9597XMBJJDA, SEPSISMaxgabriel Saul MD Work Phone: Start: 33-91-9326Ehbhrtd bacterial quanttative colony count urineMaxim Dorys VAZQUEZ Work Phone: Start: 04-05-9818Lwfpzgo total xcpt refractometry urineDarline Walden MD Work Phone: Start: 49-14-4927Bkzmp dip stick/tablet rgnt auto w/o microscopyVerpeg Walden MD Work Phone: Start: 58-55-6930Hddpl metabolic panel calcium total Darlineanne marie Walden MD Work Phone: Start: 27-57-0146Jzhto panelDarline Walden MD Work Phone: Start: 78-34-0967Vqihg 1996 panel - Serum or Plasma María Pearl POWERHOUSE MECHANIC HELPER.CREOSOTING ENGINEER Work Phone: Start: 58-59-3963Zwrbv of troponin quantitativeJanice Christina Calfee POWERHOUSE MECHANIC HELPER - CREOSOTING ENGINEER Work Phone: Start: 92-65-8846Blcwi of troponin quantitativeJanice Christina Calfee POWERHOUSE MECHANIC HELPER - CREOSOTING ENGINEER Work Phone: Start: 33-14-9932HXCFBBT, SEPSISJames Jacy Villalpando DO Work Phone: Start: 67-85-9538Jckmiia bacterial blood aerobic w/id isolatesJanice Christina Calfee POWERHOUSE MECHANIC HELPER - CREOSOTING ENGINEER Work Phone: Start: 49-61-7563KGCVFKC, BLOOD 1Janice Christina Calfee POWERHOUSE MECHANIC HELPER - CREOSOTING ENGINEER Work Phone: Start: 26-94-7754Jotulwir screenRADHA CORDOVAomment on above:Performed By: #### [id number] #### [facility] [address] [place] [address], USAStart: 06-21-2021 End: 24-09-8208Izzds spine cervical 4 or 5 viewsDerek Los Angeles MDStart: 05-01-2021 Ct thorax w/o contrast Wilton Miller MD Work Phone: Start: 94-49-9893Mipdkbgxjp test result abnormal Abnormal laboratory test resultGeneric ProviderStart: 99-70-6552FF Mod Barium Swallow with Speech EvalNelson HowardStart: 47-42-8949RES Brain without Contrast Chris ParikhAdenoid excisionSanjay ParikhAppendectomySanjay [...] on above:2022 Plan of Treatment DateCare ActivityDetailAuthorStart: 91-63-3453Fyhmwejxn for malignant neoplasm of colonNOMS HealthcareStart: 50-37-2852Qiettwrzc for malignant neoplasm of colonNOMS HealthcareStart: 66-75-4739BYJ Vaccine (1 - 1-dose 75+ series)RSV Vaccine (1 - 1-dose 75+ series)[facility]: 43-55-9713OBB vaccine (adult) (1 - 1-dose 75+ series)RSV vaccine (adult) (1 - 1-dose 75+ series) [facility]HealthStart: 03-38-9334Slamguwk ScreeningDiabetes ScreeningClinton Memorial Hospital Start: 96-29-6919Lcxkr panelBON JOSE ELIAS [facility] CENTERStart: 29-68-3532Jgdisolw ScreeningDiabetes ScreeningFostoria City Hospitaltart: 30-77-2305Resmfhmo Screening Diabetes ScreeningFostoria City Hospitaltart: 56-83-2669RFCLOEHO SCREENDIABETES SCREENFostoria City Hospitaltart: 17-38-4762Ruuubbqf ScreeningDiabetes Screening [facility] Hospitaltart: 29-44-9560Wgwxuxopx vaccinationInfluenza Vaccine (#1)NOMS HealthcareComment on above:Postponed from 12/21/2024 (Patient Refused)Start: 02-18-2026Medicare Annual Wellness (AWV)Medicare Annual Wellness (AWV)[facility] HealthcareStart: 80-02-4471Dwdkjoetilfp Vaccine: 65+ Years (1 of 2 - PCV) Pneumococcal Vaccine: 65+ Years (1 of 2 - PCV)NOMS HealthcareComment on above: Postponed from 1959 (Patient Refused)Postponed from 1972 (Patient Refused)Start: 89-06-7175Rptaubxlvi measurementSerum CreatinineClinton Memorial Hospital Start: 52-39-6145Twnswowa blood countHemoglobin/HematocritFostoria City Hospitaltart: 02-11-2025 End: 87-58-9162Tnzxtoq encounter lrlhpitnz59/23/2025 11:45 AM EDT Office Visit Neurology [phone] Abby Bernstein, POWERHOUSE MECHANIC HELPER.CREOSOTING ENGINEER [address] [place] [address] Follow upNeurologyComment on above:Follow upStart: 02-08-2025 End: 29-07-3180Jehcuba encounter procedureNOMS ENDOCRINOLOGYStart: 01-14-2025 End: 06-31-4132Ttcgcrx encounter procedureNOMS [facility] MedicineComment on above:ArrivedStart: 01-04-2025 End: 50-97-5651Dhjvxoe encounter yxiupsvtb34/15/2025 3:00 PM EDT Office Visit Neurological [facility] [address] [place] [address] Sheldon Hudson MD [address] [place] [address] Orthostatic lightheadedness [R42]; Disturbance of skin sensation [R20.9]; Abnormality of gait and mobility [R26.9]; Falls frequently [R29.6]; Orthostatic hypotension [I95.1]Neurological RestorationComment on above:Orthostatic lightheadedness [R42]; Disturbance of skin sensation [R20.9]; Abnormality of gait and mobility [R26.9]; Falls frequently [R29.6]; Orthostatic hypotension [I95.1]Start: 12-25-2024 End: 27-17-9130Ixmefmwjbnwzc metabolic 2000 panel - Serum or PlasmaComprehensive metabolic panel Lab Routine Muscle cramps Hypocalcemia Stage 3b chronic kidney disease ([facility]-H[facility]) Expected: 12/25/2024 (Approximate), Expires: 12/25/2025[facility] Work Phone: Comment on above:Expected: 12/25/2024 (Approximate), Expires: 12/25/2025Start: 12-25-2024 End: 99-77-8653Nvxjecfsn [Mass/volume] in Serum or PlasmaMagnesium Lab Routine Muscle cramps Expected: 12/25/2024 (Approximate), Expires: 12/25/2025N[facility]S HealthcareComment on above:Expected: 12/25/2024 (Approximate), Expires: 12/25/2025Start: 12-25-2024 End: 91-84-6796FOZ W/REFLEX TO FT4TSH W/REFLEX TO FT4 Lab Routine Muscle cramps Acquired hypothyroidism Expected: 12/25/2024 (Approximate), Expires: 12/25/2025 [facility] HealthcareComment on above:Expected: 12/25/2024 (Approximate), Expires: 12/25/2025Start: 12-25-2024 End: 38-26-5361Sqqrgxh encounter cfmokzbhn34/05/2025 9:00 AM EDT [facility] [address] [facility] [address] [place] [phone] Shivani Adams NP [address] [facility] [place], [place] [phone] [facility] HospitalComment on above:Arrived Start: 29-73-3630SWYTW-19 Vaccine ( season)COVID-19 Vaccine ( season)[facility]HealthStart: 69-08-6506Pkarecatx vaccinationSaint Luke's [facility] Start: 12-15-2024 End: 29-25-6869eicufyfrma36/26/2025 9:15 AM EDT Results Only [place] [facility] [address] [facility] [place] [place] [address] Kapmmu [facility] LaboratoryStart: 12-14-2024 End: 47-89-1514WMTFYWQQGXQFT REC BINDING ABACETYLCHOLINE REC BINDING AB Lab Routine Ptosis of right eyelid Hoarseness of voice Expected: 12/14/2024, Expires: 03/15/2025[facility] Work Phone: Comment on above:Expected: 12/14/2024, Expires: 03/15/2025Start: 12-03-2024 End: 04-53-5831Caogrlc encounter izeyrdmhb30/14/2025 9:00 AM EDT Office Visit KYLE LOPEZ [address] [place] [phone] Shivani May NP [address] [place] [phone] KYLE MORRISONtart: 10-29-2024 End: 05-92-6305Hpwxktd encounter procedureNOMS ENT NORWALKComment on above: ArrivedStart: 10-15-2024 End: 20-28-3875Xdadhne encounter procedureNOMS ENT NORWALKComment on above: ArrivedStart: 09-22-2024 End: 61-06-1943Jqlncvh encounter procedureNOMS ENT NORWALKComment on above: ArrivedStart: 09-08-2024 End: 95-75-7543Orutrmk encounter procedureNOMS ENT NORWALKComment on above:Acute non-recurrent maxillary sinusitis; Abnormal CT scan, sinusStart: 09-02-2024 End: 28-00-4618Vmnkapq encounter fuhbfbapl24/14/2025 3:00 PM EDT Office Visit [facility] [address] [place] [address] [phone], Sarah, NP [address] [place] [address] [facility] SystemR FMComment on above:ArrivedStart: 08-21-2024 End: 61-99-8673Uueawib encounter akyqsuwbe11/02/2025 2:20 PM EDT Office Visit [facility] [address] [place] [address] [phone] Burris MD [address] [facility] [place] [address] [facility] SystemR FMComment on above:ArrivedStart: 08-19-2024 End: 68-06-8951Nzphpgp encounter procedureANA FAITHUEComment on above:Arrived Start: 08-10-2024 End: 222286-eeihbtccaaxakq D3 [Mass/volume] in Serum or PlasmaVitamin D 25 hydroxy Total Lab Routine Vitamin D deficiency Expected: 08/10/2024 (Approximate), Expires: 08/10/2025[facility] HealthcareComment on above:Expected: 08/10/2024 (Approximate), Expires: 08/10/2025Start: 08-10-2024 End: 68-51-3117Fwtwsrdxj [Mass/volume] in Serum or PlasmaMagnesium Lab Routine Hypocalcemia Expected: 08/10/2024 (Approximate), Expires: 08/10/2025[facility] Work Phone: Comment on above:Expected: 08/10/2024 (Approximate), Expires: 08/10/2025Start: 08-10-2024 End: 25-95-9971Uwqgz function panelRenal function panel Lab Routine Low serum parathyroid hormone (PTH) Hypocalcemia Expected: 08/10/2024 (Approximate), Expires: 08/10/2025[facility] HealthcareComment on above:Expected: 08/10/2024 (Approximate), Expires: 08/10/2025Start: 08-10-2024 End: 28-22-8955Sodcizt encounter procedureNOMS ENDOCRINOLOGYComment on above: ArrivedStart: 21-70-7099Gxdglqsec vaccinationInfluenza Vaccine (#1)[facility] HealthcareComment on above:Postponed from 12/22/2023 (Patient Refused)Start: 07-22-2024 End: 29-22-0480PEO W/REFLEX TO FT4TSH W/REFLEX TO FT4 Lab Routine Acquired hypothyroidism (CMS/HCC) Expected: 07/22/2024 (Approximate), Expires: 06/10/2025 [facility] Work Phone: Comment on above:Expected: 07/22/2024 (Approximate), Expires: 06/10/2025Start: 07-21-2024 End: 49-75-4716Ojdfbyj encounter aybmigzet05/01/2025 8:00 AM EDT Office Visit KYLE JESSICA [address] [place] [phone] Shashi Pina DO [address] [place] [phone] KYLE MORRISONtart: 07-06-2024 End: 783231-aatsqnjucndprw D3 [Mass/volume] in Serum or PlasmaVitamin D 25 hydroxy Total Lab Routine Vitamin D deficiency Expected: 07/06/2024 (Approximate), Expires: 07/06/2025[facility] HealthcareComment on above:Expected: 07/06/2024 (Approximate), Expires: 07/06/2025Start: 07-06-2024 End: 76-24-0900Vqhjafq, urine, 24 hourCalcium, urine, 24 hour Lab Routine Postsurgical hypoparathyroidism (CMS/HCC) Expected: 07/06/2024 (Approximate), Expires: 07/06/2025[facility] HealthcareComment on above:Expected: 07/06/2024 (Approximate), Expires: 07/06/2025Start: 07-06-2024 End: 85-01-7318QENNFVHK, 24 HOUR URINECREATINE, 24 HOUR URINE Lab Routine Postsurgical hypoparathyroidism (CMS/HCC) Expected: 07/06/2024 (Approximate), Expires: 07/06/2025[facility] Work Phone: Comment on above:Expected: 07/06/2024 (Approximate), Expires: 07/06/2025Start: 07-06-2024 End: 17-23-2824Pnpmodukv [Mass/volume] in Serum or PlasmaMagnesium Lab Routine Postsurgical hypoparathyroidism (CMS/HCC) Expected: 07/06/2024 (Approximate), Expires: 07/06/2025[facility] HealthcareComment on above:Expected: 07/06/2024 (Approximate), Expires: 07/06/2025Start: 07-06-2024 End: 06-78-3210Zevgbgbldj.intact [Mass/volume] in Serum or PlasmaPTH, intact Lab Routine Postsurgical hypoparathyroidism (CMS/HCC) Expected: 07/06/2024 (Approximate), Expires: 07/06/2025[facility] HealthcareComment on above:Expected: 07/06/2024 (Approximate), Expires: 07/06/2025Start: 07-06-2024 End: 04-06-4587Tltyg function panelRenal function panel Lab Routine Postsurgical hypoparathyroidism (CMS/HCC) Expected: 07/06/2024 (Approximate), Expires: 07/06/2025[facility] HealthcareComment on above:Expected: 07/06/2024 (Approximate), Expires: 07/06/2025Start: 07-06-2024 End: 15-49-5650Xsefamw encounter xqliztltw68/17/2025 10:00 AM EDT Office Visit [facility] [address] [place] [address] Latoya Redding MD [address] [place] [address] [facility] ENDOCRINOLOGYStart: 06-22-2024 End: 14-67-5388Xblhkeqgvrsln receptor, modulatingAcetylcholine receptor, modulating Lab Routine Weakness Expected: 06/22/2024 (Approximate), Expires: 06/22/2025[facility] Work Phone: comment on above:Expected: 06/22/2024 (Approximate), Expires: 06/22/2025Start: 06-22-2024 End: 82-62-3071KE Brain WO and W contrast IVMR brain w and wo contrast routine Imaging High Priority Cranial neuropathy Expected: 06/22/2024, Expires: 06/22/2025[facility] HealthcareComment on above:Expected: 06/22/2024, Expires: 06/22/2025Start: 06-22-2024 End: 23-19-2657JQNQ ANTIBODY TESTMUSK ANTIBODY TEST Lab Routine Weakness Expected: 06/22/2024 (Approximate), Expires: 06/22/2025[facility] HealthcareComment on above:Expected: 06/22/2024 (Approximate), Expires: 06/22/2025Start: 06-09-2024 End: 06-66-2738Okbrtubvhqhrg metabolic 2000 panel - Serum or PlasmaComprehensive metabolic panel Lab Routine Essential hypertension (CMS/HCC) Expected: 06/09/2024 (Approximate), Expires: 06/09/2025[facility] HealthcareComment on above: Expected: 06/09/2024 (Approximate), Expires: 06/09/2025Start: 06-09-2024 End: 39-59-2456JH Chest for screening WO contrastCT lung screening low dose Imaging Routine History of smoking Expected: 06/09/2024, Expires: 06/09/2025[facility] HealthcareComment on above:Expected: 06/09/2024, Expires: 06/09/2025Start: 06-09-2024 End: 00-11-9551Vyosi 1996 panel - Serum or PlasmaLipid panel Lab Routine Arteriosclerosis of coronary artery (CMS/HCC) Expected: 06/09/2024 (Approxim ate), Expires: 06/09/2025[facility] Work Phone: Comment on above:Expected: 06/09/2024 (Approximate), Expires: 06/09/2025Start: 06-09-2024 End: 94-32-3213SPH W/REFLEX TO FT4TSH W/REFLEX TO FT4 Lab Routine Acquired hypothyroidism (CMS/HCC) Expected: 06/09/2024 (Approximate), Expires: 06/09/2025 [facility] HealthcareComment on above:Expected: 06/09/2024 (Approximate), Expires: 06/09/2025Start: 06-09-2024 End: 86-58-9908Hzpnujf encounter procedureNOMS FNR FMComment on above:Arrived Start: 05-19-2024 End: 25-61-0486Daqoavnjjxhzy receptor, bindingAcetylcholine receptor, binding Lab Routine Ptosis of both eyelids Expected: 05/19/2024 (Approximate), Expires: 05/19/2025[facility] Work Phone: Comment on above:Expected: 05/19/2024 (Approximate), Expires: 05/19/2025Start: 05-19-2024 End: 47-39-1775Hhgitvuaibawx receptor, blockingAcetylcholine receptor, blocking Lab Routine Ptosis of both eyelids Expected: 05/19/2024 (Approximate), Expires: 05/19/2025[facility] HealthcareComment on above:Expected: 05/19/2024 (Approximate), Expires: 05/19/2025Start: 32-31-8836Cooffnd Directive DiscussionAdvance Directive DiscussionCleHenry County Hospitaltart: 57-89-1426BRBSTNEN SCREENDIABETES SCREENClemarietta osteopathic clinic ClinicStart: 90-82-1704Hmztdojqq vaccinationInfluenza Vaccine (#1)[facility] HealthcareComment on above:Postponed from 12/22/2023 (Patient Refused) Start: 29-95-2440Kcbenrjv blood countHemoglobin/HematocritFostoria City Hospitaltart: 45-87-4379Adoparcvmi measurementSerum CreatinineFostoria City Hospitaltart: 02-06-2024 End: 40-24-9689Tfguoov encounter hffxxtilt15/17/2024 9:00 AM EDT Office Visit [facility] [address] [facility] [place] [phone] Radha Burris MD [address] [facility] [place] [address] ArrivedNOMS FNR FMComment on above:ArrivedStart: 13-50-1458Brhzzquepu measurementBasic Metabolic PanelMetroHealthStart: 47-93-3484Uflonuwevsho Vaccine: 65+ Years (1 - PCV)Pneumococcal Vaccine: 65+ Years (1 - PCV)[facility] HealthcareComment on above:Postponed from 1959 (Patient Refused)Start: 86-25-1593Rltgefreaufk Vaccine: 65+ Years (1 of 2 - PCV)Pneumococcal Vaccine: 65+ Years (1 of 2 - PCV)[facility] HealthcareComment on above:Postponed from 1959 (Patient Refused)Start: 46-53-1251Nileq CreatinineSerum Creatinine [facility]art: 96-15-6390PN Controlled (<130/80)BP Controlled (<130/80) [facility]: 01-13-2024 End: 38-86-4626Qtexurh encounter /23/2024 1:30 PM EDT Office Visit [facility] [address] [facility] [place] [phone] Shivani Adams NP [address] [facility] [place] [address] ArrivedNOCA FNR FMComment on above:ArrivedStart: 90-46-2257Xohkaizx Spine MRI w/o contrast, Complete (76803), Body Site: Spine, Sent on: [facility] [place]: 29-39-7225GUH Lumbar Spine wo Contrast (94374), Body Site: MRI Head/Spine/Chest, Sent on: Ucv-66-8046CbtnsYarjwqel of [place] YorkS[place]: 70-99-6684RX CONTROLLED (<130/80)BP CONTROLLED (<130/80)[facility]: 12-24-2023 End: 14-24-7952Cbhqfpi encounter lrejixpny34/03/2024 9:30 AM EDT Office Visit [facility] [address] [facility] [place] [address] Radha Burris MD [address] [facility] [address] [place] [phone] ArrivedNOMS FNR FMComment on above:ArrivedStart: 75-49-9523Wkcij-19 Vaccine ()Covid-19 Vaccine ( season)[facility]: 67-96-1273Vkuicfphn vaccinationInfluenza Vaccine (#1)[facility]: 20-25-3212NKAFA CREATININESERUM CREATININEFostoria City Hospitaltart: 10-20-2023 Influenza vaccinationInfluenza Vaccine (#1)[facility] HealthcareComment on above: Postponed from 12/21/2022 (Patient Refused)Start: 04-20-2024Medicare Annual Wellness (AWV)Medicare Annual Wellness (AWV)[facility] HealthcareStart: 61-58-1264ML CONTROLLED (<130/80)BP CONTROLLED (<130/80)[facility]: 05-31-2023 End: 84-79-6963AVTJR/MIGUEL BETHEA,[facility] Work Phone: comment on above:Expected: 05/31/2023, Expires: 08/30/2023Start: 83-80-4170Fyvnhnj Directive DiscussionAdvance Directive DiscussionFostoria City Hospitaltart: 27-82-9752Efskyghibl AssessmentDepression AssessmentFostoria City Hospitaltart: 01-96-7829ObedpbxogSycamore Medical Center Start: 49-12-4469Prrpxnl referralReferrals: Neurology. Diagnostic testing [facility]Start: 02-01-2023 End: 87-89-6820Adpkgpo encounter fzsklzsyc29/13/2023 1:45 PM EDT Appointment [address] [place] [address] [facility]: 01-31-2023 End: 42-45-9110Ywaqatjp identified in Stool by CultureStool Culture, Test of Cure Microbiology Routine Diarrhea, unspecified type Expected: 01/31/2023 (Ap proximate), Expires: 02/07/2023[facility] Work Phone: Comment on above:Expected: 01/31/2023 (Approximate), Expires: 02/07/2023Start: 01-31-2023 End: 98-13-4715Ipoho metabolic 2000 panel - Serum or PlasmaUnSelect Medical [facility] Work Phone: Comment on above:Expected: 01/31/2023 (Approximate), Expires: 02/01/2024Start: 01-31-2023 End: 23-99-3079YT Abdomen and Pelvis W contrast IVCT abdomen pelvis w IV contrast Imaging STAT Left lower quadrant abdominal pain Expected: 01/31/2023, Expires: 02/01/2024[facility] Service Area Work Phone: comment on above:Expected: 01/31/2023, Expires: 02/01/2024Start: 01-31-2023 End: 92-73-6824Gvztd Pathogen Panel, PCRStool Pathogen Panel, PCR Microbiology Routine Diarrhea, unspecified type Expected: 01/31/2023 (Approximate), Expires: 02/07/2023[facility] Work Phone: Comment on above:Expected: 01/31/2023 (Approximate), Expires: 02/07/2023Start: 61-82-3643JFpE/Tdap/Td vaccine (2 - Td or Tdap) DTaP/Tdap/Td vaccine (2 - Td or Tdap)[facility]Start: 01-27-2023 DTaP/Tdap/Td Vaccines (2 - Td or Tdap)DTaP/Tdap/Td Vaccines (2 - Td or Tdap) [facility]Start: 93-20-3648Vqqcrde vaccinationTetanus (Td or Tdap) BoosterMetroHealthStart: 00-31-0732Igaaz microalbumin profileFostoria City Hospitaltart: 02-76-9907Ulfobgiq mellitus screeningDiabetes ScreeningClermont County HospitalStart: 26-95-7543Fviplcvham A1c jozfbdsiqzhW9Y test (Diabetic or Prediabetic)[facility]ENTERStart: 01-01-2023 HEMOGLOBIN/HEMATOCRITHEMOGLOBIN/HEMATOCRITFostoria City Hospitaltart: 01-01-2023 Hepatitis B surface antibody levelLDL CholesterolFostoria City Hospitaltart: [id number]-19 Vaccine ( season)Covid-19 Vaccine ()[facility] Hospitaltart: 74-08-0916Usgohaiye vaccinationClinton Memorial Hospital Start: [id number], Provider: Yossi Chen, Status: Pen, Time: 10:45 AMFUV, Provider: Yossi Chen, Status: Pen, Time: 10:45 AMMP[facility] [address] DO Work Phone: Start: [id number], Provider: Yossi Chen, Status: Pen, Time: 2:45 PMNPV, Provider: Yossi Chen, Status: Pen, Time: 2:45 PM [facility] Work Phone: Start: [id number], Provider: Arabella Terry, Status: Pen, Time: 3:00 PMVIRFUVHOME, Provider: Arabella Terry, Status: Pen, Time: 3:00 XIHZ-Wwobyapelxdtsw-Wmbkw [id number] Work Phone: Start: [id number], Provider: Arabella Terry, Status: Pen, Time: 8:00 AMSURGPMC, Provider: Arabella Terry, Status: Pen, Time: 8:00 ZBYE-Fregrtarsjkhwb-Ptbyswz Work Phone: start: 41-23-6683TVBEVGJNIW, Provider: Ranjana Perrin, Status: Pen, Time: 8:30 AMVIRFUVHOME, Provider: Ranjana Perrin, Status: Pen, Time: 8:30 IJ[address]ctk[address]bsdky-MregyywChi [facility] [address] Work Phone: Start: 93-34-3638SQZDYJUQMK, Provider: Ruby Daily, Status: Pen, Time: 11:30 AMVIRFUVHOME, Provider: Ruby Daily, Status: Pen, Time: 11:30 [facility] [address] [place] Work Phone: Start: 14-65-3415DSPK, Provider: ELIAN PROCEDURE ROOM 10,MG GASTRO, Status: Pen, Time: 8:00 AMEMOT, Provider: ELIAN PROCEDURE ROOM 10,MG GASTRO, Status: Pen, Time: 8:00 QUAM-Kevxwwgfjfbgdq-Cbtlyej Work Phone: start: 31-81-0834UIBNJT, Provider: Beth Diego, Status: Pen, Time: 7:30 AMEGDANS, Provider: Beth Diego, Status: Pen, Time: 7:30 XRGT-Qadvjzbazauflz-Uakecrj Work Phone: start: 27-02-1595PIK, Provider: Arabella Terry, Status: Pen, Time: 10:40 AMNPV, Provider: Arabella Terry, Status: Pen, Time: 10:[address] [facility] [address] [place] Work Phone: Start: 29-79-5048MPKTUMHCAN, Provider: Yoanna Quigley, Status: Pen, Time: 3:15 PMVIRFUVHOME, Provider: Yoanna Quigley, Status: Pen, Time: 3:[address] [facility] [address] [place] Work Phone: Start: 79-37-9668QZLQFVCUWE, Provider: Ruby Daily, Status: Pen, Time: 12:30 PMVIRFUVHOME, Provider: Ruby Daily, Status: Pen, Time: 12:30 MLIG-Pknsalycheryjk-Tjfnkum Voice Work Phone: Start: 05-31-2022 End: 37-91-3118Hnwfbntzelpld metabolic 2000 panel - Serum or PlasmaCOMP METABOLIC PANEL Lab Routine Chronic migraine without aura, intractable, without status migrainosus Expected: 05/31/2022, Expires: 07/31/2022[facility] Work Phone: Comment on above:Expected: 05/31/2022, Expires: 07/31/2022Start: 64-17-7769BADXPDD DIRECTIVE DISCUSSIONADVANCE DIRECTIVE DISCUSSIONFostoria City Hospitaltart: 18-32-4431ILMYFUIHTJ ASSESSMENTDEPRESSION ASSESSMENTFostoria City Hospitaltart: 07-32-1239TBDGK CREATININESERUM CREATININE [facility]: 55-46-8674Ozmyqnsak vaccinationInfluenza Vaccine (#1) [facility]Start: 01-05[facility]2022 End: 13-51-9479Bpilq metabolic 2000 panel - Serum or PlasmaBasic Metabolic Panel Lab Routine EMELIA (acute kidney injury) (HCC) Expected: 01/05/2022, Expires: ON [employer] Work Phone: comment on above:Expected: 01/05/2022, Expires: 01/05/2023Start: 01-05-2022 End: 92-50-5792LKV W Auto Differential panel - BloodCBC with Auto Differential Lab Routine Acute pancreatitis, unspecified complication status, unspecified pancreatitis type Expected: 01/05/2022, Expires: 01/05/2023 [employer] Work Phone: comment on above:Expected: 01/05/2022, Expires: 01/05/2023Start: 01-06-2843Zqvxhriyv vaccinationBON Screenburn [facility]Start: 50-19-7732Uswvobv referralOrthoAlliance [facility]: 87-42-6658Yrgakasay for malignant neoplasm of colonFostoria City Hospitaltart: 06-21-2021 End: 95-93-9053XkmmxCjzeixip of [facility]: 33-02-6763PYNDA-19 Vaccine (4 - Booster for Moderna series)COVID-19 Vaccine (4 - Booster for Moderna series) [facility]Start: 32-88-2949VRCNT-19 VACCINE (4 - Moderna series)COVID-19 VACCINE (4 - Moderna series)[facility]: 62-59-2314Xepyb metabolic 2000 panel - Serum or PlasmaBasic Metabolic PanelMetroHealthStart: 01-14-2021 Creatinine measurementBasic Metabolic PanelMetroHealthStart: 32-18-4528Mgqmcdq stimulating hormone measurementTSHMetroHealthStart: 62-37-9144KDDFC-19 Vaccine (3 - Booster for Moderna series)COVID-19 Vaccine (3 - Booster for Moderna series)[facility]Start: 96-01-0696Jrtntf wellness visitAnnual Wellness Visit (G0438)[facility]HealthStart: 02-91-0746Xlnjsdvwu vaccinationFlu vaccine (#1)[place], [place]: 54-77-9279MJI Brain without Contrast XJ-Rucyvlbnv-Nxngijcfe 201 Work Phone: Start: 77-67-2150Wcqpnlfhr aortic aneurysm screening [facility]HealthStart: 78-71-1413Evoecfijh Aortic Aneurysm Screening (Age 65+) Abdominal Aortic Aneurysm Screening (Age 65+)MetroHealthStart: 2018 Pneumococcal 65+ years Vaccine (1 - PCV)Pneumococcal 65+ years Vaccine (1 - PCV) [facility]Start: 23-42-9898Ldddkrsxtyxm 65+ years Vaccine (1 of 1 - PPSV23)Pneumococcal 65+ years Vaccine (1 of 1 - PPSV23)[place] Start: 73-96-5156Hcbdaoxyguon vaccinationMetroHealthStart: 2018 Pneumococcal Vaccine: 65+ (1 - PCV)Pneumococcal Vaccine: 65+ (1 - PCV)[facility]: 50-67-8512Fgzenjfhvntd Vaccine: 65+ (1 of 1 - PCV)Pneumococcal Vaccine: 65+ (1 of 1 - PCV)[facility]: 99-00-1220Puztmydarcob Vaccine: 65+ Years (1 - PCV)Pneumococcal Vaccine: 65+ Years (1 - PCV)[facility]: 05-10-5543PPZFNXMTDFPX: 65+ (1 - PCV)PNEUMOCOCCAL: 65+ (1 - PCV)[facility]: 01-01-2019Medicare Annual Wellness Visit Medicare Annual Wellness VisitFostoria City Hospitaltart: 08-53-0958Tbdtqhqlg B (HBV) Vaccine (optional start 60+ years)Hepatitis B (HBV) Vaccine (optional start 60+ years)[facility]: 40-68-0549HLU Vaccine (1 - 1-dose 60+ series)RSV Vaccine (1 - 1-dose 60+ series)[facility]: 07-60-3335UVO Vaccine (1 - Risk 60-74 years 1-dose series)RSV Vaccine (1 - Risk 60-74 years 1-dose series) [facility]: 04-32-8470NPZ vaccine (optional 60+ years)RSV vaccine (optional 60+ years)[facility]Start: 23-17-4632NOKTAWOM CANCER SCREENING DISCUSSIONPROSTATE CANCER SCREENING DISCUSSIONCleHenry County Hospitaltart: 2003 Measurement of occult blood in single stool specimenFITMetroHealthStart: 01-40-3408Howgahwwxdks vaccinationPneumococcal Vaccine(s) (50+ yrs) (1 of 1 - PCV)[facility]HealthStart: 83-27-1679Iufowehypfui Vaccine: 50+ (1 of 1 - PCV) Pneumococcal Vaccine: 50+ (1 of 1 - PCV)[facility]: 2003 Screening for malignant neoplasm of colonMetroHealthStart: 78-45-6487Lpafkfnq (RZV) Vaccine (1 of 2)Shingles (RZV) Vaccine (1 of 2)[facility] HospitalStart: 29-96-6575Pnixkmcg Vaccine (1 of 2)Shingles Vaccine (1 of 2)[facility]: 72-75-6443HEYVRGSC VACCINE (1 of 2)SHINGRIX VACCINE (1 of 2) [facility]: 19-48-6090Qmrfkk Vaccines (1 of 2)Zoster Vaccines (1 of 2)[facility] HospitalSthood river: 53-33-3652SJMTOINTB (FIT-DNA)COLOGUARD (FIT-DNA)[facility]: 01-27-8620VdmzjouavauNKQAPKXOIWHRcgprtycl ClinicStart: 44-67-4364UTNIUZBLJB CANCER SCREENINGCOLORECTAL CANCER SCREENING [facility]: 91-75-1518TH COLONOGRAPHYCT COLONOGRAPHYClinton Memorial Hospital Start: 83-29-9766KIRKH OCCULT BLOODFECAL OCCULT BLOODFostoria City Hospitaltart: 79-50-8795Duztindwx for malignant neoplasm of colonRIVERSIDE BEHAVIORAL [facility]ALTH [facility] Start: 60-34-3896YZEMCHSPFVKZLKLZQLSGUSXREXJrndvuofk ClinicStart: 1993 Lipid panelLipid screenMi[place], [place]Start: 68-76-7262Cbtjs 1996 panel - Serum or PlasmaLipid ScreeningFostoria City Hospitaltart: 96-75-0318Bynie panel CholesterolMetroMemorial Health System Selby General HospitalStart: 69-77-3471TSQSG SCREENLIPID SCREENClinton Memorial Hospital Start: 97-33-8281EOkS/Tdap/Td vaccine (1 - Tdap)DTaP/Tdap/Td vaccine (1 - Tdap) [place], [place]: 16-91-3894Wnrbrahrf A (HAV) Vaccine (optional start 19+ years)Hepatitis A (HAV) Vaccine (optional start 19+ years)[facility]Start: 02-90-3423VWBUHR PCP TEAM CHRONIC DISEASE VISITANNUAL PCP TEAM CHRONIC DISEASE VISITFostoria City Hospitaltart: 99-16-9082Zsljxje ScreeningAnxiety Screening [facility]: 84-39-0371Fvuqlrvads ScreeningDepression Screening [facility]: 96-72-1087Jbgzgncfh B surface antibody levelLDL CHOLESTEROLFostoria City Hospitaltart: 81-65-3083Mljzbpqpz C screeningBON REGENCY HOSPITAL COMPANYStart: 00-58-4090TBOAYOWTQ C SCREENINGHEPATITIS C SCREENINGFostoria City Hospitaltart: 60-69-6546Kygazhbxni ScreenDepression ScreenRIVERSIDE BEHAVIORAL HEALTH CENTERStart: 39-31-2359Zbnyehzlipdo Vaccine: 65+ Years (1 of 2 - PCV) Pneumococcal Vaccine: 65+ Years (1 of 2 - PCV)[facility] HealthcareStart: 1955 ABDOMINAL AORTIC ANEURYSM SCREENINGABDOMINAL AORTIC ANEURYSM SCREENINGFostoria City Hospitaltart: 57-27-0217Uoazevdos aortic aneurysm screeningAbdominal Aortic Aneurysm ScreeningFostoria City Hospitaltart: 35-37-3927Zfttszkpc C screening Hepatitis C screenBarney Children's Medical Center: 73-98-0074Ozbee panelLipid Panel [facility]: 01-30-1956Medicare Annual Wellness Visit Medicare Annual Wellness Visit (AWV)[facility]: 79-45-8924Obqojprfy for malignant neoplasm of colonMetroUK Healthcare: 1955 Thyroid stimulating hormone measurementAllianceHealth Midwest – Midwest City End: 68-54-6248Lfzcs metabolic 2000 panel - Serum or PlasmaBasic Metabolic Panel Lab Routine Daily for 3 Days starting 01/05/2022 until 01/07/2022, 1 completed [employer] Work Phone: comment on above:Daily for 3 Days starting 01/05/2022 until 01/07/2022, 1 completedContinuous pulse oximetryPulse oximetry, continuous Respiratory Care Routine Every 4hr until discontinued starting 01/01/2022[employer] Work Phone: comment on above:Every 4hr until discontinued starting 2Culture, Blood 1Culture, Blood 1 Microbiology STAT 01/01/2022 12:00 AM EDQuantaLife Phone: culture, Blood 2Culture, Blood 2 Microbiology STAT 01/01/2022 12:01 AM [employer] Phone: End: 75-56-2632Oirozefjramh pulse oximetryPulse Oximetry Spot Check Respiratory Care Routine One Time for 1 Occurrences starting 12/31/2021 until 12/31/2021[employer] Phone: comment on above:One Time for 1 Occurrences starting 12/31/2021 until 12/31/2021 End: 89-22-9978Evq head w/o contrst materialThe Christ Hospital Work Phone: Comment on above:1 Occurrences starting 05/31/2022 until 06/30/2023Oxygen therapy [Minimum Data Set]Initiate Oxygen Therapy Protocol Respiratory Care Routine As Needed until discontinued starting 12/21ON [facility] Work Phone: comment on above:As Needed until discontinued starting 12/31/2021atient EducationColon polyps Hemorrhoids (DC)[facility] Work Phone: Surgical PathologySurgical Pathology Lab Routine Gall stone pancreatitis Release Upon Ordering for 1 Occurrences starting 01/02/2022 [facility] [employer] [facility] Work Phone: comment on above:Release Upon Ordering for 1 Occurrences starting 01/02/20222295XC-Cmzqtwhaj-Ppugyrquz 201 Work Phone: cAdventHealth OcalaNEGATED: Highlighted row has been ruled out!Planned Goals not sfyiufprilLQ-Zzgxoxgoh-Sltxeawsg 201 Work Phone: Immunizations Immunization DateImmunizationNotesCare DynfubbkWgyztign46-40-5665Ixkqkam (primary 12+ yrs) COVID-19 vaccine, mRNA, spike protein, LNP, PF, 100 mcg/0.5 mL (MSX=104)Radha Burris MD Work Phone: [phone]qfdLpiyst74-18-6079Rttnfel SARS-CoV-2 Vaccination Generic [facility] HospitalGzoppzqopx05-29-1644Oqdwqll (primary 12+ yrs) COVID-19 vaccine, mRNA, spike protein, LNP, PF, 100 mcg/0.5 mL (YUS=138)Radha Burris MD Work Phone: [phone]) [phone]uTnieqc29-28-8828Qsyisck SARS-CoV-2 Vaccination Generic [facility] HospitalTkuhwfbyxw89-38-7252csxanawfn, injectable, quadrivalent, preservative freeRadha Burris MD Work Phone: [phone]xwmSpufjv23-39-9111gtwuaffqs virus vaccine, unspecified formulationRadha Burris MD Work Phone: [phone]tHdcibt31-30-8979rdgkice toxoid, reduced diphtheria toxoid, and acellular pertussis vaccine, Cem Fox Other MetroHealthNEGATED: Highlighted row has not occurred! 30-21-6653tjbuynzoj, high dose seasonal, preservative-freePatient Objection Thor Fox Other [facility] [employer] Other NEGATED: Highlighted row has not occurred!06-14-2015 influenza, injectable,quadrivalent, preservative free, pediatricPatient ObjectionSrubi Fox Other [facility] [employer] Other Payers DatePayer CategoryPayerPolicy [id number]-aiz [id number] Health Insurance [id number] Indemnity [employer] - TRADITIONAL .2.840.856756.1.13.56.2.7.9.028351.425.54888-70-1751Xxspxjs 1.2.840.518463.1.13.56.2.7.3.256403.315 2019Medicare FFSMEDICARE 1.2.840.791470.1.13.56.2.7.9.595861.100.315 2019Medicare 1.2.840.429908.1.13.56.2.7.3.967326.315 [id number] 1960 [id number] 2.16.840.1.170902.3.579.2.355 95-51-9070Acfjiqf2662198 2.16.840.1.603021.3.579.2.63165-72-7348Dkoumsy518672942 2.16840.1.060119.3.579.2.70030-82-7566Mlggbnh30308807 2.16.840.1.362291.3.579.2.99231-08-6972Ihcqjxa87251075 2.16.840.1.160618.3.579.2.52518-13-1285Wxsnnwa59226407 2.16.840.1.647821.3.579.2.66937-79-2279Ezvkvdh670873171 2.16.840.1.809544.3.579.2.02775-57-8000Endlsqs5311308 2.16.840.1.571267.3.579.2.44385-04-8617Mtkvcwz4813826 2.16.840.1.340508.3.579.2.33796-33-3939Urrzcnz2468004 2.16.840.1.745452.3.579.2.92682-54-4498Blevtmr6784589 2.16840.1.554928.3.579.2.74436-40-9990Ldpxrgg8260032 2.16.840.1.944854.3.579.2.42214-12-6739Vgbtcdw7168306 2.840.1.831504.3.579.2.35412-54-3890Xqrqzom8942420 2.16840.1.531141.3.579.2.42322-93-6165Djbjnan0200647 2.840.1.052949.3.579.2.84473-56-5152Pmhfmrq8942110 2.840.1.183678.3.579.2.05550-20-1922Ytpfxln0738452 2.840.1.524135.3.579.2.77832-45-4698Gkubtpz6849752 2.840.1.019468.3.579.2.47482-82-9316Gogwwez3091824 2.840.1.478013.3.579.2.97332-47-7825Xcdrzhi7581878 2.840.1.363256.3.579.2.64422-50-3135Qkqwvtf762455274 2.840.1.388549.3.579.2.11260-53-1152Cmzpjry02362847 2.840.1.964889.3.579.2.195281-64-1769Snrauyr08064538 2.840.1.502512.3.579.2.370964-84-2407Oahlghn11889153 2.840.1.440649.3.579.2.475599-11-6761Hrtiana41840311 2.840.1.908498.3.579.2.978940-27-9601Shbppvm95029841 2.840.1.581155.3.579.2.246758-38-6802Xzdfhmj359979810 2.16.840.1.580032.3.579.2.59776-77-8125Inldzux711843457 2.16.840.1.439858.3.579.2.68393-48-2386Xlnqtdx482743656 2.16.840.1.041676.3.579.2.76085-58-0851Wbswcyl361159714 2.16840.1.991127.3.579.2.45737-68-0718Icvxsjg192685561 2.16840.1.260668.3.579.2.87718-57-0970Sdbpfid304953949 2.840.1.892158.3.579.2.51963-57-1298Oaqcosf688484371 2.16840.1.749785.3.579.2.23685-29-2432Zokpfuh462356703 2.840.1.683746.3.579.2.57742-18-1984Wqrduwu811016244 2.840.1.655913.3.579.2.83112-41-8917Ylmxyen388317228 2.16840.1.150456.3.579.2.32087-75-3284Vjbtsct818656084 2.16840.1.774924.3.579.2.18688-93-0655Krxmotg060773250 2.840.1.908381.3.579.2.73679-64-5872Qsuolpm652298714 2.16840.1.517800.3.579.2.97841-61-9201Nanzimd93617607 2.16840.1.956992.3.579.2.612444-35-1516Efmiylc42903625 2.16840.1.675965.3.579.2.812231-91-9725Qlqzdgz26240210 2.16840.1.007098.3.579.2.069286-28-0500Debaule7353649 2.840.1.428730.3.579.2.659077-10-5283Eejmcsa3151071 2.840.1.811346.3.579.2.167531-60-3429Lvhsrox98041755 2.0.1.358662.3.579.2.070385-29-0145Gvehdqp8201046 2..1.396339.3.579.2.005709-26-7587Xeuhqjd70202185 2.0.1.459624.3.579.2.16437-33-8853Qgezhql39599983 2.0.1.338681.3.579.2.42097-46-7634Liwegfn87516003 2.0.1.040798.3.579.2.33099-25-2332Xohatga77999880 2..1.124627.3.579.2.640491-12-2324Yzueyro18302369 2.0.1.605795.3.579.2.260523-63-0100Vhumgpd53461068 2.0.1.155627.3.579.2.347176-37-7618Gtxmetg42177558 2.840.1.409067.3.579.2.932425-25-2497Pmjlyir28555598 2.840.1.296423.3.579.2.600488-99-1564Klajlhe3741672 2.16.840.1.774846.3.579.2.027754-48-8105Gzxbveu3672012 2.16.840.1.091557.3.579.2.071343-22-9358Awcfppw7741617 2.16.840.1.486199.3.579.2.902335-33-0890Yuyssnd4704779 2..840.1.721618.3.579.2.389521-61-0469Eubcjaf3997940 2.16.840.1.363382.3.579.2.053722-20-5634Vmfpbfo9240402 2..840.1.101205.3.579.2.905925-72-3983Jqpcygz9011511 2..840.1.272494.3.579.2.356600-09-1464Jbbvtug5134419 2.16.840.1.666020.3.579.2.986484-08-0548Hvztujw6366320 2..840.1.186853.3.579.2.746784-81-3479Fzuouzk4947323 2..840.1.911764.3.579.2.088845-41-9712Ijfhzqv0089024 2.840.1.911772.3.579.2.1259Private Health [id number] 2.840.1.622082.3.579.2.531 Social History DateTypeDetailFacilityAssertionUnknown if ever utzoxnIK-Sahhispxp-Hivpskbpt 201 Work Phone: Start: 94-72-9420Xyt Assigned At BirthNot on [place], [place]: 01-06-2020 End: 45-01-1020Kby Assigned At BirthFostoria City Hospitaltart: 14-31-8103Dygmtoz smoking status NHISNever smoked tobaccoYoumiam Phone: start: 01-06-2020 End: 72-68-8830Dtqrteo use and exposureSmokeless tobacco non-userYoumiam Phone: start: 12-21-2021 End: 30-19-6916Gqudwnvx to SARS-CoV-2 (event)Not sureF[facility] Orthopedics Work Phone: start: 01-06-2020 End: 03-49-5484Ovxgkol smoking status NHISEx-smokerMetroHealthStart: 04-22-1967 End: 45-21-1382Nelcjaa of tobacco useCurrent smokerMetroHealthStart: 04-22-1967 End: 41-93-9229Bbczecx of tobacco useCigarette SmokerMetroHealthStart: 01-27-2020 End: 07-95-9452Zjzragm intakeCurrent drinker of alcohol (finding)[facility] Start: 01-06-2020 End: 03-88-1213Rkumqux intakeBerlin Heights ClinicStart: 65-64-1965Wqmbawu SDOH Alcohol Msvgjppnl7PgtvvQppwheEgmva: 68-38-3377Sdlbnil Comment1 beer once a month [facility]: 03-23-2012 End: 26-60-8217Qqvtk Depression Screening Oilgtjkxon8Qogxuylds ClinicStart: 01-02-2024 End: 14-58-5250Zxbxsra smoking status NHISTobacco smoking consumption unknown [facility] Work Phone: Start: 37-62-3679Psy Assigned At [facility]Within the last year, have you been afraid [...] got money to buy more.Never trueNOMS HealthcareStart: 31-29-8213Udjigdn CommentLast smoked:>20 years agoNOMS HealthcareStart: 03-08-6503Lyctasm Commentone beer a month. Caffeine intake: 2- 3 cups per day of coffeeNOMS HealthcareStart: 24-46-7869Kongxa identity Identifies as male gender (finding)[facility] HealthcareStart: 13-22-5241Xwtjpio Commentone half of a beer once a monthFostoria City Hospitaltart: 03-28-2021 End: 59-69-6925Omzxkunv to SARS-CoV-2 (event)Unable to assessClinton Memorial Hospital Start: 12-26-1344Fswyeec intakeAlcohol Use DetailsOrthoAlliance of OhioComment on above:quit 1983Start: 79-97-0373Lqllep OrientationStraight or heterosexual [facility] OhioStart: 14-16-7674Verrrn OrientationChoose not to disclose [facility] OhioAre you now , , , , never or living with a partner?SeparatedNOMS HealthcareHistory of tobacco use Pipe SmokerNOMS HealthcareHistory of tobacco useCigar SmokerNOMS Healthcare Start: 22-21-3649Bogxyfa CommentCaffeine intake: 1 cups per day of coffeeNOCA HealthcareTobacco smoking statusMercy Health Lorain Hospital Start: 01-22-2019 End: 41-25-4720ClaNypf (finding)[facility] Centertart: 01-27-2020 Details of drug misuse behaviorHas never misused drugs (situation)[facility] Medical Equipment Procedure CodeEquipment CodeEquipment Original TextEquipment IdentifierDaClementina Duarteellation Intraocular Vision System C3f8 125gm - [id number] Start: 54-09-3053Khjd Iol Ultrasert 16 - [id number]: 10-15-2017 Sleeve 2.4mm 1.5mm Silicone 30mm Scleral Round Sterile - [id number] Start: 19-94-9613Sgouw Silicone 984l4s5iz Retinal 9229 Sterile - [id number]: 10-15-2017 Goals DatePatient GoalDesired Activity/State Functional Status SzdoWqrqnzuhtyKonuukTqdhrcbu01-18-5171Sdhdzys Health Questionnaire 2 item (PHQ- 2) [Reported][facility]SmithvilleInptugsdqc27-08-4089Frwdgja Health Questionnaire 2 item (PHQ- 2) [Reported][facility]–SmithvilleSbxoektecr86-32-9737Zighlcz Health Questionnaire 2 item (PHQ- 2) [Reported][facility]–SmithvilleKzduwdjrwo81-05-6216Fmvoy score [AUDIT-C]1 12/17/2023 11:34 AM EDT Mychart, GenericNOMS Wqgfrsneac53-62-8321Cte often do you have a drink containing alcohol?Monthly or less 12/17/2023 11:34 AM EDT Mychart, Generic Monthly or lessNOMS Etybhpgijs29-28-3116Fxq many standard drinks containing alcohol do you have on a typical day?1 or 2 12/17/2023 11:34 AM EDT Mychart, Generic 1 or 2NOMS Hhnwcnrbcy53-92-6869Ygx often do you have 6 or more drinks on 1 occasion?Never 12/17/2023 11:34 AM EDT Mychart, Generic NeverNOMS Healthcare 28-56-7930Mpg you deaf, or do you have serious difficulty hearingNo 12/15/2020 12:20 PM Kathie Guillen APRN.[facility] Work Phone: [phone] you blind, or do you have serious difficulty seeing, even when wearing glassesNo 12/15/2020 12:20 PM Kathie Guillen APRN.NEETU [facility]08-26-2021Do you have serious difficulty walking or climbing stairsNo 12/15/2020 12:20 PM Kathie Guillen APRN.[facility]08-26-2021Do you have difficulty dressing or bathingNo 12/15/2020 12:20 PM EDT Kathie Lee APRN.CNP [facility]08-26-2021 Because of a physical, mental, or emotional condition, do you have difficulty doing errands alone such as visiting a physician's office or shoppingNo 12/15/2020 12:20 PM EDT Kathie Lee APRN.CNP [facility]NEGATED: Highlighted rowFunctional performanceFunctional status health issues are not documented [facility] Work Phone: Mental Status [id number] of a physical, mental, or emotional condition, do you have serious difficulty concentrating, remembering, or making decisionsNo 12/15/2020 12:20 PM EDT Kathie Lee APRN.CNP [facility]: Highlighted rowCognitive function [Interpretation] Cognitive status health issues are not documented [facility] Work Phone: Clinical Notes 2018 to 02-11-2025 Note Date & [id number] NoteHNO ID: [id number] Author: ABBY BERNSTEIN APRN.CNP Service: ? Author Type: Nurse Practitioner Type: Progress Notes Filed: 02/12/2025 15:20 Note Text: [facility] Follow Up Yoli Antunez is a 69 year old male who presents today for follow up regarding [place] Recording using ambient AI software for draft documentation of the visit was discussed with the patient/authorized kiosk sales representative; all questions welcomed and answered. Patient/authorized kiosk sales representative agreed to proceed PMH: AAA Arthritis CKD [...] CD of prior brain MRI from June ([facility]) for review. - Educated patient on the limitations of Parkinson's diagnosis and the ration (more content not included)...[facility]10-10-2025 Nuclear medicine Diagnostic study [facility] [place] [id number] Nuclear Medicine Report Signed Patient: Yoli Antunez Jr MR#: [id number] : 1955 Acct:[id number] Age/Sex: 69 / M ADM Date: 5 Loc: [place] Room: Type: [facility] Attending Dr: Maryann Armstrong MD Copies to: NON STAFF Chaz Smith Jr, DO Maryann Armstrong MD~ Ordering Provider: NON STAFF Date of Service: 01/29/25 NM/NM brain spect datscan: R26.[address] Idris Armstrong M.D [facility] Nuclear medicine Efraín scan. Reason for exam: [...] Jr., DJoy 01/29/2025 12:56 PM Dictation Location: [place] [address] Transcribed By: [facility] 01/29/25 1256 Dictated By: Chaz Smith Jr, DO 01/29/25 1246 Signed By: 01/29/25 1256 [facility]09-30-2025 NoteCardiovascular Medicine [facility] SUBJECTIVE Chief Complaint Patient presents with Follow-up Patient is here today for a follow up [facility] ER on 01/10/2025. Patient states if [...] chronic chest pain 01/19/2025 Pt went to [facility] ER due to having an episode [...] stairs in his barn. He notes his [employer] debbi will tell him he is in [...] cervical disc disease. Neuro referred him to [facility] for further evaluation of his [...] cardiac catheterization 08/2023, POTS who presented to [facility] with ongoing chest pain that has [...] Lexiscan ECG stress te (more content not included)...[facility]09-25-2025 History of Present illness Narrative* Radha Burris MD - 01/14/2025 10:20 AM EDTAssociated Problem(s): Acquired hypothyroidism * Radha Burris MD - 01/14/2025 10:20 AM EDT Subjective ?Quick Links Last Note in Specialty Snapshot Edit RFV/CC Edit Screenings Current [facility] Patient ID: Yoli Antunez is a 69 y.o. male who presents for Follow-up and ER Follow-up. HPI Flowsheet Row Patient Outreach from 01/11/2025 in [facility] with Harleen Martinez RN Hospital Information ED, Hospital or Jail [...] did not reveal any significant findings. His spray foam installer suspects microvascular disease, but due to his [...] He has a follow-up appointment with his spray foam installer on 01/19/2025. He has been diagnosed with Parkinson's disease and is under the care of a neurologist at [facility]. A DaTscan has been ordered to [...] chewable tablet ergocalciferol (Vitamin D2) 1.25 MG (22566 UT) capsule levothyroxine (Synthroid) 175 MCG tablet [...] not reveal any significant findings. - The spray foam installer suspects microvascular disease, but an MRI cannot be performed due to his pacemaker. - He is advised to ensure he has a place to sit down when symptoms arise to prevent falls. 2. Microvascular Disease: - The spray foam installer is convinced of microvascular disease, but it [...] within the normal range. documented in this encounterSaint [id number] NoteHNO ID: [id number] Author: SHELDON HUDSON MD Service: ? Author Type: Physician Type: Progress Notes Filed: 01/07/2025 16:37 Note Text: [facility] - NEW PATIENT EVALUATION Recording using ZappyLab software for draft documentation of the visit was discussed with the patient/authorized kiosk sales representative; all questions welcomed and answered. Patient/authorized kiosk sales representative agreed to proceed Primary Movement Disorders Neurologist: Sheldon Hudson MD Primary Movement Disorders DEBBI: Not yet assigned Referring Provider: Abby Bernstein [address] [facility] [address] Primary Care Provider: Radha Burris MD [id number] [facility] [id number] Dear Abby Bernstein: Thank you for referring [...] Row Office Visit from 01/07/2025 in [facility] App[facility]ment from 01/04/2025 in [facility] Physical [facility] T Score 39.8 39.8 [...] two times a d (more content not included)...[facility] 12-31-2024 NoteSY[facility] Reason [...] Use: Not At Risk (12/17/2023) Re[facility] AUDIT-C Frequency of Alcohol Consumption: Monthly or [...] Physical Activity: Sufficiently Active (12/17/2023) Re[facility] Exercise Vital Sign Days of Exercise per Week: 7 days Minutes of Exercise per Session: 30 min Stress: Patient Declined (12/17/2023) Re[facility] from [facility] [employer] - Occupational Stress Questionnaire Feeling of Stress : Patient declined Social Connections: Moderately Isolated (12/17/2023) Re[facility] Social Connection and Isolation Panel [NHANES] Frequency of Communication with Friends and Family: More than three times a week Frequency of Social Gatherings with Friends and Family: More than three times a week Attends Amish Services: Never Active Member of Clubs or Organizations: No Attends Club or Organization Meetings: Never Marital Status: Intimate Partner Violence: Unknown (04/08/2024) Humiliation, Afraid, Rape, and Kick questionnaire Fear of Current or Ex-Partner: No Emotionally Abused: Not on file Physically Abused: Not on file Sexually Abused: Not on file Depression: Not at risk (12/28/2024) Received from [facility] PHQ-2 PHQ-2 score: 0 Housing Stability: Low Risk (04/08/2024) Housing Stability Vital Sign Unable to Pay for Housing in the Last Year: No Number of Times Moved in the Last Year: Not on file Homeless in the Last Year: No Utilities: Not At Risk (04/08/2024) [facility] Utilities Threatened with loss of utilities: No Health Literacy: Adequate Health Literacy (12/17/2023) Received from [employer] [facility] Frequency of need for help [...] (TTE) w/wo Imaging Agent, (more content not included)...[facility]09-05-2025 History of Present illness Narrative* [...] a workup for myasthenia gravis at the [facility] and has an upcoming appointment with neurology. One eye closes once or twice a day and cannot be reopened. ?Quick Review Review Full History Edit History Meds - calcitriol (Rocaltrol) 0.25 MCG capsule calcium carbonate (Os-Atilio) 1250 (500 Ca) MG chewable tablet ergocalciferol (Vitamin D-2) 1.25 MG (17312 UT) capsule levothyroxine (Synthroid) 150 MCG tablet [...] a workup for myasthenia gravis at the [facility] and has an upcoming appointment with neurology. documented in this encounterSaint Luke[facility] Hospital–SmithvilleSeyblblfna25-54-4290 Telephone encounter Note* Telephone Encounter - Shaylee Sweet - 12/15/2024 11:36 AM EDT Type of record received: Labs Records received from: [employer] Records received via: Faxed Records scanned into The [employer]Room: Yes Records have been forwarded to: Day [facility]08-26-2025 Miscellaneous Notes* Telephone Encounter - Shaylee Sweet - 12/15/2024 11:36 AM EDT Type of record received: Labs Records received from: [facility] Records received via: Faxed Records scanned into Epic: Yes Records have been forwarded to: Day [facility] Instructions* Patient Instructions* Abby Bernstein APRN.CNP - 11/10/2024 12:36 PM EDT PLAN: Consult to movement clinic Send me AChR and Musk labs please Follow up in 3 months documented [facility]Cl[facility] History of Present illness Narrative* Abby Bernstein APRN.CNP - 11/10/2024 11:45 AM EDT Images from the original note were not included. [facility] Follow Up Yoli Antunez is a 69 year old male who presents today for follow up regarding [place] PMH: AAA Arthritis CKD state 3 CAD Personal history of smoking ZONIA GOUT HLD HTN Hypothyroid ADA with BIPAP RLS TIA Chart Review: María Pearl APRN.CREOSOTING ENGINEER IMPRESSION/PLAN: Orthostatic hypotension Tilt table testing indicative of orthostatic hypotension. This would likely explain his symptoms of orthostatic lightheadedness and near syncope. He notes that since the tilt table test, his Benazepril and Diltiazem have been discontinued, but his orthostatic symptoms persist. He was seen by Dr. Vilchis at [facility] who would like to place [...] 45-03 70-01 [phone] SEE NOTE, [id number] ; feels like something is pulling on [...] focal stenosis, occlusion, or aneurysmal dilatation. Complete [place]. Electronically signed: Cher Castaneda. CT [...] stage 3, GFR 30-59 ml/min ([facility]) Ex-smoker Gastric ulcer GERD (gastroesophageal reflux [...] BL lower extremities Movement/Coordination Finger-to- nose-finger and yeva-pu-eteg intact bilaterally. No evidence of ataxia arms. [...] & Plan 11/10/2024 - Neuromuscular, Abby Bernstein APRN.CREOSOTING ENGINEER ASSESSMENT Yoli Antunez is a 69 year [...] which included preparing to see the patient, [id number] patient care, completing clinical documentation, obtaining and/or [...] AB *Canceled* CONSULT TO NEUROLOGY Abby Bernstein APRN.[facility] Neuromuscular Medicine [address] [place] [address]. [phone] Appointment: [phone] 1. This office note has been dictated [...] focusing problem? : Moderate documented in [facility] encounterCl[facility]-2025 NoteHNO ID: [id number] Author: ABBY BERNSTEIN APRN.CREOSOTING ENGINEER Service: ? Author Type: Nurse Practitioner Type: Progress Notes Filed: 11/10/2024 13:31 Note Text: [facility] Follow Up Yoli Antunez is a 69 year old male who presents today for follow up regarding [place] PMH: AAA Arthritis CKD state 3 CAD Personal history of smoking ZONIA GOUT HLD HTN Hypothyroid ADA with BIPAP RLS TIA Chart Review: María Pearl APRN.CREOSOTING ENGINEER IMPRESSION/PLAN: Orthostatic hypotension Tilt table testing indicative of orthostatic hypotension. This would likely explain his symptoms of orthostatic lightheadedness and near syncope. He notes that since the tilt table test, his Benazepril and Diltiazem have been discontinued, but his orthostatic symptoms persist. He was seen by Dr. Vilchis at [facility] who would like to place [...] a focal sm (more content not included)... [facility]07-10-2025 History of Present illness Narrative* Lalito Miller, [...] 09/12/2000 Past Medical History: Diagnosis Date A-fib ([facility]) 11/[address] [facility] Abdominal aortic aneurysm without rupture Acquired absence of other specified parts of digestive tract 09/22/2024 Aortic root dilatation Biliary acute pancreatitis without necrosis or infection ([facility]) Brain lesion SMALL BRAIN LESION C/W [...] ischemic attack) Vitamin D deficiency Vitreous hemorrhage ([facility]) 08/2017 Macular Pucker Current Outpatient Medications: calcitriol (Rocaltrol) 0.25 MCG capsule, Take 1 capsule (0.25 mcg) by mouth Daily, Disp: 90 capsule, Rfl: 1 calcium carbonate (Os-Atilio) 1250 (500 Ca) MG chewable tablet, Chew 1 tablet in the morning., Disp: ,Rfl: ergocalciferol (Vitamin D-2) 1.25 MG (15794 UT) capsule, Take 1 capsule (1.25 mg) [...] History: Procedure Laterality Date ABLATION A-FIB 11/[address] [facility] ANTERIOR CERVICAL DISCECTOMY W/ FUSION APPENDECTOMY CARDIAC SURGERY 09/2020 [facility] CATARACT EXTRACTION Right 02/2022 CHOLECYSTECTOMY 01/02/2022 CT [...] Watchman FLX Lt atrial appendage closure device CO THYROIDECTOMY SUBSTERNAL CERVICAL APPROACH 09/24/2018 RETINAL DETACHMENT SURGERY Left reattach SEPTOPLASTY 10/07/2024 SINUS SURGERY Right 10/07/2024 THROAT SURGERY 09/13/2022 throat dilation at THYROID SURGERY TOTAL KNEE ARTHROPLASTY Left 05/08/2016 partial TRANSESOPHAGEAL ECHOCARDIOGRAM (CHANTELLE) [facility]AC[facility] 01/2019 Social History [...] Strain: Low Risk (04/08/2024) Received from [facility] Overall Financial Resource Strain (CARDIA) Difficulty of Paying Living Expenses: Not hard at all Food Insecurity: No Food Insecurity (04/08/2024) Received from [facility] Hunger Vital Sign Within the past 12 months, you worried that your food would run out before you got the money to buymore.: Never true Ran Out of Food in the Last Year: Not on file Transportation Needs: No Transportation Needs (04/08/2024) Received from [facility] Transportation In the past 12 months, has lack of transportation kept you from medical appointments or from getting medications?: No Lack of Transportation (Non-Medical): Not on file Physical Activity: Sufficiently Active (12/17/2023) Exercise Vital Sign Days of Exercise per Week: 7 days Minutes of Exercise per Session: 30 min Stress: Patient Declined (12/17/2023) [place] [employer] - Occupational Stress Questionnaire Feeling of Stress : Patient declined Social Connections: Moderately Isolated (12/17/2023) Social Connection and Isolation Panel [NHANES] Frequency of Communication with Friends and Family: More than three times a week Frequency of Social Gatherings with Friends and Family: More than three times a week Attends Amish Services: Never Active Member of Clubs or Organizations: No Attends Club or Organization Meetings: Never Marital Status: Intimate Partner Violence: Unknown (04/08/2024) Received from [facility] Humiliation, Afraid, Rape, and Kick questionnaire Fear of Current or Ex-Partner: No Emotionally Abused: Not on file Physically Abused: Not on file Sexually Abused: Not on file Housing Stability: Low Risk (04/08/2024) Received from [facility] Housing Stability Vital Sign In the last 12 months, was there a time when you were not able to pay the mortgage or rent on time?: No Number of Times Moved in the Last Year: Not on file At any time in the past 12 months, were you homeless or living in a penitentiary (including now)?: No Objective ENT Physical Exam [...] area of fistula repair. documented in this encounterSaint Luke's [facility] Hospital–[id number] History of Present illness Narrative* Lalito Miller [...] 2 or 3 weeks. documented in this encounterSaint Luke's North Hospital–Sm[id number] Hospital Discharge instructions Patient Education 10/07/2024 16:09:17 Post Op Patient Instructions - FT (CUSTOM) 10/07/2024 14:50:45 [place] Information 2 (Custom) [place], [place] Lalito Miller DO FUNCTIONAL ENDOSCOPIC SINUS SURGERY INFORMATION SHEET WHY DO I NEED FUNCTIONAL ENDOSCOPIC SINUS SURGERY? 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 Optimetrix number: Optimetrix number [id number]. Anesthetic utilized: General. Physical Examination Vital Signs [...] etiology. Permitted patient to (more content not included)...[facility] on [facility]:Result Comment: Electronically Signed By: Amos Mena Jr., DO\Date and Time Signed: 10/07/24 17:02 [id number] NotePatient Education - Text [facility] [place] Lalito Miller, DO FUNCTIONAL ENDOSCOPIC SINUS SURGERY INFORMATION SHEET WHY DO I NEED FUNCTIONAL ENDOSCOPIC SINUS SURGERY? 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 Extracted from:Title:ANES Pre-operative Note - AdultAuthor:Amos Mena Jr., DO GDate:10/07/24 Plan [place] [employer] Anesthesiologists (ASA) physical status classification: Class III. Anesthetic Preoperative Plan: Anesthesia General.[facility] 06-18-2025 NoteProgress Note-Physician Patient: YOLI ANTUNEZ JR [...] BPH with urinary obstruction / SNOMED CT 7008998942 / Confirmed Gout / SNOMED CT 264819720 / Confirmed Head injury / SNOMED CT 346901013 / Confirmed Headache / SNOMED CT 03544654 / Confirmed History of TIAs / SNOMED CT 9482663499 / Confirmed Hydronephrosis with obstructing calculus / SNOMED CT 11959734 / Confirmed Hypertension / SNOMED CT 1142584800 / Confirmed Hyperthyroidism / SNOMED CT 35940763 / Confirmed Kidney stone / SNOMED CT 494317970 / Confirmed Low back pain / SNOMED CT 344905979 / Confirmed Nocturia / SNOMED CT 028270604 / Confirmed Post-void dribbling / SNOMED CT 309133863 / Confirmed Stage 3 chronic kidney disease / SNOMED CT 8431774596 / Confirmed Resolved: Atrial fibrillation / SNOMED CT 35242107 Resolved: High blood pressure / SNOMED CT 30559686 Resolved: Kidney disease / SNOMED CT 630947712 Histories Past Medical History: Resolved Atrial fibrillation (79302262): Resolved. Kidney disease (850661199): Resolved. High blood pressure (50536876): Resolved. Procedure history: Colonoscopy (048636805). Tonsillectomy (201691579). Knee replacement (735111486). Comments: 01/29/2019 16:14 EDT - Page CORTES Umu N Right/Left Back (575199664). Thyroidectomy (99059962). Knee replacement (505257643). Appendectomy (338888399). Fusion of joint of cervical spine with internal fixation by anterior approach (6955752446). Cardiac Ablation x3 (122179867). Cholecystectomy (86490760). Implantation of cardiac pacemaker (913091969). Detached retina of left eye (4279281503). CEIOL - cataract extraction and implantation of intraocular lens (0657033936). Watchman Implant (44118492). Comments: 09/25/2024 14:40 EDT - Damian GONZALEZ, [...] Type: Cigarettes, Cigars 0 (more content not included)...[facility]hillComment on above: Result Comment: Electronically Signed By: Amos Mena Jr., DO.dionne\Date and Time Signed: 10/07/24 11:35 [id number] NoteCardiovascular Medicine [facility] SUBJECTIVE Chief Complaint Patient presents with [...] cervical disc disease. Neuro referred him to [facility] for further evaluation of his [...] cardiac catheterization 08/2023, POTS who presented to [facility] ED with ongoing chest pain that has [...] (CMS/HCC) Essential hypertension Coronary artery disease involving agdaagux coronary artery of agdaagux heart without angina pectoris Recurrent falls History [...] Diverticulosis of small in (more content not included)...[facility]06-12-2025 NotePatient is here today for [...] leg swelling. Respiratory: Positive for shortness of breath.[facility]06-03-2025 History of Present illness Narrative* [...] 09/12/2000 Past Medical History: Diagnosis Date A-fib ([facility]/H[facility]) 11/[address] [facility] Abdominal aortic aneurysm without rupture ([facility]) Acquired absence of other specified parts of digestive tract 09/22/2024 Aortic root dilatation ([facility]/H[facility]) Biliary acute pancreatitis without necrosis or infection Brain lesion SMALL BRAIN LESION C/W MS Cataract COVID-19 GI bleed History of being hospitalized 12/2021 abd pain, lap ivy History of partial knee replacement left HL (hearing loss) Hypertension ([facility]/HCC) Hyperthyroidism (CMS/HCC) Hypothyroid ([facility]HCC) Kidney stone with mild hydonephrosis Migraine Noninfective gastroenteritis and colitis, unspecified 09/22/2024 Numbness Orthostatic hypotension Paroxysmal atrial fibrillation ([facility]) Peripheral neuropathy Personal history of medical treatment [...] Rfl: 0 ergocalciferol (Vitamin D-2) 1.25 MG (27889 UT) capsule, Take 1 capsule (1.25 mg) [...] History: Procedure Laterality Date ABLATION A-FIB 11/[address] [facility] ANTERIOR CERVICAL DISCECTOMY W/ FUSION APPENDECTOMY CARDIAC SURGERY 09/2020 [facility] CATARACT EXTRACTION Right 02/2022 CHOLECYSTECTOMY 01/02/2022 CT [...] Watchman FLX Lt atrial appendage closure device CO THYROIDECTOMY SUBSTERNAL CERVICAL APPROACH 09/24/2018 RETINAL DETACHMENT SURGERY Left reattach THROAT SURGERY 09/13/2022 throat dilation at THYROID SURGERY TOTAL KNEE ARTHROPLASTY Left 05/08/2016 partial TRANSESOPHAGEAL ECHOCARDIOGRAM (CHANTELLE) [facility] 01/2019 Social History [...] Low Risk (04/08/2024) [facility] from [facility] Overall Financial Resource Strain (CARDIA) Difficulty of Paying Living Expenses: Not hard at all Food Insecurity: No Food Insecurity (04/08/2024) Received from [facility] Hunger Vital Sign Within the past 12 months, you worried that your food would run out before you got the money to buymore.: Never true Ran Out of Food in the Last Year: Not on file Transportation Needs: No Transportation Needs (04/08/2024) Received from [facility] Transportation In the past 12 months, has lack of transportation kept you from medical appointments or from getting medications?: No Lack of Transportation (Non-Medical): Not on file Physical Activity: Sufficiently Active (12/17/2023) Exercise Vital Sign Days of Exercise per Week: 7 days Minutes of Exercise per Session: 30 min Stress: Patient Declined (12/17/2023) [place] [employer] - Occupational Stress Questionnaire Feeling of Stress : Patient declined Social Connections: Moderately Isolated (12/17/2023) Social Connection and Isolation Panel [NHANES] Frequency of Communication with Friends and Family: More than three times a week Frequency of Social Gatherings with Friends and Family: More than three times a week Attends Amish Services: Never Active Member of Clubs or Organizations: No Attends Club or Organization Meetings: Never Marital Status: Intimate Partner Violence: Unknown (04/08/2024) Received from [facility] Humiliation, Afraid, Rape, and Kick questionnaire Fear of Current or Ex-Partner: No Emotionally Abused: Not on file Physically Abused: Not on file Sexually Abused: Not on file Housing Stability: Low Risk (04/08/2024) Received from [facility] Housing Stability Vital Sign In the last 12 months, was there a time when you were not able to pay the mortgage or rent on time?: No Number of Times Moved in the Last Year: Not on file At any time in the past 12 months, were you homeless or living in a penitentiary (including now)?: No Objective ENT Physical Exam [...] disease, serous disability,and . documented in this encounterSaint Luke's [id number] History of Present illness Narrative* Lalito Miller [...] Medical History: Diagnosis Date A-fib (CMS/HCC) 11/[address] [facility] Abdominal aortic aneurysm without rupture (CMS/HCC) [...] Disp: ,Rfl: ergocalciferol (Vitamin D-2) 1.25 MG (64973 UT) capsule, Take 1 capsule (1.25 mg) [...] History: Procedure Laterality Date ABLATION A-FIB 11/[address] [facility] ANTERIOR CERVICAL DISCECTOMY W/ FUSION APPENDECTOMY CARDIAC SURGERY 09/2020 [facility] CATARACT EXTRACTION Right 02/2022 CHOLECYSTECTOMY 01/02/2022 CT ANGIO HEAD 03/05/2023 CT ANGIO HEAD 03/05/2023 CT ANGIOGRAM ABDOMEN 07/06/2021 CT ANGIOGRAM ABDOMEN 07/06/2021 CT ANGIOGRAM ABDOMEN PELVIS 08/24/2021 CT ANGIOGRAM ABDOMEN PELVIS 08/24/2021 CT ANGIOGRAM ABDOMEN PELVIS 09/16/2021 CT ANGIOGRAM ABDOMEN PELVIS 09/16/2021 CT ANGIOGRAM CHEST 07/06/2021 CT ANGIOGRAM CHEST [facility] ANGIOGRAM HEART CORONARY 08/30/2020 [...] Watchman FLX Lt atrial appendage closure device CO THYROIDECTOMY SUBSTERNAL CERVICAL APPROACH 09/24/2018 RETINAL DETACHMENT SURGERY Left reattach THROAT SURGERY 09/13/2022 throat dilation at THYROID SURGERY TOTAL KNEE ARTHROPLASTY Left 05/08/2016 partial TRANSESOPHAGEAL ECHOCARDIOGRAM (CHANTELLE) [facility] 01/2019 Social History [...] Strain: Low Risk (04/08/2024) Received from [facility] Overall Financial Resource Strain (CARDIA) Difficulty of Paying Living Expenses: Not hard at all Food Insecurity: No Food Insecurity (04/08/2024) Received from [facility] Hunger Vital Sign Within the past 12 months, you worried that your food would run out before you got the money to buymore.: Never true Ran Out of Food in the Last Year: Not on file Transportation Needs: No Transportation Needs (04/08/2024) Received from [facility] Transportation In the past 12 months, has lack of transportation kept you from medical appointments or from getting medications?: No Lack of Transportation (Non-Medical): Not on file Physical Activity: Sufficiently Active (12/17/2023) Exercise Vital Sign Days of Exercise per Week: 7 days Minutes of Exercise per Session: 30 min Stress: Patient Declined (12/17/2023) [employer] - Occupational Stress Questionnaire Feeling of Stress : Patient declined Social Connections: Moderately Isolated (12/17/2023) Social Connection and Isolation Panel [NHANES] Frequency of Communication with Friends and Family: More than three times a week Frequency of Social Gatherings with Friends and Family: More than three times a week Attends Amish Services: Never Active Member of Clubs or Organizations: No Attends Club or Organization Meetings: Never Marital Status: Intimate Partner Violence: Unknown (04/08/2024) Received from [facility] Humiliation, Afraid, Rape, and Kick questionnaire Fear of Current or Ex-Partner: No Emotionally Abused: Not on file Physically Abused: Not on file Sexually Abused: Not on file Housing Stability: Low Risk (04/08/2024) Received from [facility] Housing Stability Vital Sign In the last 12 months, was there a time when you were not able to pay the mortgage or rent on time?: No Number of Times Moved in the Last Year: Not on file At any time in the past 12 months, were you homeless or living in a penitentiary (including now)?: No Objective ENT Physical Exam [...] 2 weeks for recheck. documented in this encounterSaint Luke's North Hospital–Sm[id number] History of Present illness Narrative* Shivani Adams NP - 09/02/2024 3:00 PM EDT Images from the original note were not included. oYli Antunze is a 69 y.o. male presents with [...] with ENT as scheduled documented in this encounterSaint Luke's North Hospital–SmithvilleCtykfdqzzt34-99-3181 History of Present illness Narrative* Radha Burris MD - 08/21/2024 2:20 PM EDT Images from the original note were not included. Yoli Antunez is a 69 y.o. male presents with chief complaint of Dental Injury (Patient had tooth removed two weeks ago Saturday at [facility] for tooth removal but the root traveled to sinus. Sx of right ear pain, and thick yellow mucus that started the next day. Has been taking ibuprofen 600mg 3-4 times daily. [place] sent a couple of referrals to ENT, [...] is being provided [facility] a neurolog[facility] due to intermittent eye issues. Further evaluation at [place] has been recommended by the neurologist. Vision [...] Medical History: Diagnosis Date A-fib (CMS/HCC) 11/[address] [facility] Abdominal aortic aneurysm without rupture ([facility]/HCC) Aortic root dilatation ([facility]/HCC) Biliary acute pancreatitis without necrosis or infection Brain lesion SMALL BRAIN LESION C/W MS Cataract COVID-19 GI bleed History of being hospitalized 12/2021 abd pain, lap ivy History of partial knee replacement left Hypertension ([facility]/HCC) Hyperthyroidism ([facility]/HCC) Hypothyroid ([facility]/HCC) Kidney stone with mild hydonephrosis Orthostatic hypotension Paroxysmal atrial fibrillation ([facility]/HCC) Personal history of medical treatment BORDERLINE [...] History: Procedure Laterality Date ABLATION A-FIB 11/[address] [facility] APPENDECTOMY CARDIAC SURGERY 09/2020 [facility] CATARACT EXTRACTION Right 02/2022 CHOLECYSTECTOMY 01/02/2022 CT [...] Watchman FLX Lt atrial appendage closure device CO THYROIDECTOMY SUBSTERNAL CERVICAL APPROACH 09/24/2018 RETINAL DETACHMENT SURGERY Left reattach THROAT SURGERY 09/13/2022 throat dilation at THYROID SURGERY TOTAL KNEE ARTHROPLASTY Left 05/08/2016 partial TRANSESOPHAGEAL ECHOCARDIOGRAM (CHANTELLE) [facility] 01/2019 REVIEW OF [...] to follow up with the specialist in [place] for further evaluation. - Referral to [place] specialist has been made for further assessment. Assessment/Plan Problem List Items Addressed This Visit None Visit Diagnoses Dental infection - Primary Relevant Medications clindamycin (Cleocin) 300 MG capsule Other Relevant Orders CT SINUS WO IV CONTRAST (Completed) No follow-ups on file. documented in this encounterSaint Luke's North Hospital–SmithvilleWeipasovbj07-92-5413 History of Present illness Narrative* Shashi Pina [...] Medical History: Diagnosis Date A-fib (CMS/HCC) 11/[address] [facility] Abdominal aortic aneurysm without rupture (CMS/HCC) [...] History: Procedure Laterality Date ABLATION A-FIB 11/[address] [facility] APPENDECTOMY CARDIAC SURGERY 09/2020 [facility] CATARACT EXTRACTION Right 02/2022 CHOLECYSTECTOMY 01/02/2022 CT [...] Watchman FLX Lt atrial appendage closure device CO THYROIDECTOMY SUBSTERNAL CERVICAL APPROACH 09/24/2018 RETINAL DETACHMENT SURGERY Left reattach THROAT SURGERY 09/13/2022 throat dilation at TOTAL KNEE ARTHROPLASTY Left 05/08/2016 partial TRANSESOPHAGEAL ECHOCARDIOGRAM (CHANTELLE) 04/[facility] Left 01/2019 Family History [...] , wrist extensors , wrist flexor , core setter strength 5/5. LUE Strength deltoid , biceps , triceps , wrist extensors , wrist flexor , core setter strength 5/5. RLE Strength illopsoas, quadriceps, tibialis [...] reflex 2+ . Gonzales's sign negative. Coordination: Ohxzpy-cs-bxfe testing and rapid alternating movements are normal [...] recommended. I have reviewed extensive notations from [facility] in January 2023 which detailed the patient [...] patient to Dr. Bhavesh Huitron in at [facility] to evaluate further. Signs and [...] of pacemaker implantation with Dr. Vilchis in [place]. Certainly close follow up with Cardiology team in [facility] are of the utmost importance. Plan: [...] Focality: facial aura: Yes documented in this encounterSaint Luke's North Hospital–Sm[id number] History of Present illness Narrative* Latoya Redding [...] day the HPI 06/2024 Patient sent from [facility] had him better for low [...] Medical History: Diagnosis Date A-fib (CMS/HCC) 11/[address] [facility] Abdominal aortic aneurysm without rupture ([facility]/HCC) Aortic root dilatation ([facility]/HCC) Biliary acute pancreatitis without necrosis or infection Brain lesion SMALL BRAIN LESION C/W MS Cataract COVID-19 GI bleed History of being hospitalized 12/2021 abd pain, lap ivy History of partial knee replacement left Hypothyroid ([facility]/HCC) Kidney stone with mild hydonephrosis Orthostatic hypotension Paroxysmal atrial fibrillation ([facility]/HCC) Personal history of medical treatment BORDERLINE MS, MG, ALS Vitreous hemorrhage ([facility]/HCC) 08/2017 Macular Pucker Past Surgical History: Procedure Laterality Date ABLATION A-FIB 11/[address] [facility] APPENDECTOMY CARDIAC SURGERY 09/2020 [facility] CATARACT EXTRACTION Right 02/2022 CHOLECYSTECTOMY 01/02/2022 CT ANGIO HEAD 03/05/2023 CT ANGIO HEAD 03/05/2023 CT ANGIOGRAM ABDOMEN 07/06/2021 CT ANGIOGRAM ABDOMEN 07/06/2021 CT ANGIOGRAM ABDOMEN PELVIS 08/24/2021 CT ANGIOGRAM ABDOMEN PELVIS 08/24/2021 CT ANGIOGRAM ABDOMEN PELVIS 09/16/2021 CT ANGIOGRAM ABDOMEN PELVIS 09/16/2021 CT ANGIOGRAM CHEST 07/06/2021 CT ANGIOGRAM CHEST [facility] CT ANGIOGRAM HEART CORONARY 08/30/2020 CT [...] Watchman FLX Lt atrial appendage closure device CO THYROIDECTOMY SUBSTERNAL CERVICAL APPROACH 09/24/2018 RETINAL DETACHMENT SURGERY Left reattach THROAT SURGERY 09/13/2022 throat dilation at TOTAL KNEE ARTHROPLASTY Left 05/08/2016 partial TRANSESOPHAGEAL ECHOCARDIOGRAM (CHANTELLE) 04[facility] 01/2019 REVIEW OF [...] Daily - ergocalciferol (Vitamin D-2) 1.25 MG (33624 UT) capsule; Take 1 capsule (1.25 mg) [...] 6 months (around 02/09/2025). documented in this encounterSaint Luke's North Hospital–SmithvilleSxgiagmcpx48-99-2961 NotePlaced in MRI mode per REP Shoppable, MRI mode expires 07/28/2024. 90 DOO. Patient tolerated procedure well. Post MRI scan assisted patient to dressing room. Pt has a Biotronik Edora 8 DR-T pacemaker model [id number] lead model [id number] lead model 828131- conditional for 1.5 and 3T- normal op mode- whole body 2 W/kg- info in Epic- must be in MRI mode prior to scan- sees [facility] cardiology- LK 06/07/21 pt has a Watchman [...] pt states his loop recorder was removed- 06/25/24[facility]03-17-2025 History of Present illness Narrative* Latoya Redding MD - 07/06/2024 10:00 AM EDT Yoli Antunez is a 69 y.o. male [facility] Eleonora Amita,* presents with chief complaint of Thyroid Problem (PARATHYROID NEW REF/LAB) HPI: HPI 06/2024 Patient sent from [facility] had him better for low [...] Medical History: Diagnosis Date A-fib (CMS/HCC) 11/[address] [facility] Abdominal aortic aneurysm without rupture ([facility]/HCC) Aortic root dilatation (CMS/HCC) Biliary acute pancreatitis [...] History: Procedure Laterality Date ABLATION A-FIB 11/[address] [facility] APPENDECTOMY CARDIAC SURGERY 09/2020 [facility] CATARACT EXTRACTION Right 02/2022 CHOLECYSTECTOMY 01/02/2022 CT [...] Watchman FLX Lt atrial appendage closure device CO THYROIDECTOMY SUBSTERNAL CERVICAL APPROACH 09/24/2018 RETINAL DETACHMENT SURGERY Left reattach THROAT SURGERY 09/13/2022 throat dilation at TOTAL KNEE ARTHROPLASTY Left 05/08/2016 partial TRANSESOPHAGEAL ECHOCARDIOGRAM (CHANTELLE) 04[facility] 01/2019 REVIEW OF [...] 6 weeks (around 08/17/2024). documented in this encounterSaint Luke's North Hospital–SmithvilleYoceogjzds38-63-2834 History of Present illness Narrative* Shashi Pina, [...] Medical History: Diagnosis Date A-fib (CMS/HCC) 11/[address] [facility] Abdominal aortic aneurysm without rupture ([facility]/HCC) Aortic root dilatation ([facility]/HCC) Biliary acute pancreatitis without necrosis or infection Brain lesion SMALL BRAIN LESION C/W MS Cataract COVID-19 GI bleed History of being hospitalized 12/2021 abd pain, lap ivy History of partial knee replacement left Hypothyroid ([facility]/HCC) Kidney stone with mild hydonephrosis Orthostatic hypotension Paroxysmal atrial fibrillation ([facility]/HCC) Personal history of medical treatment BORDERLINE MS, MG, ALS Vitreous hemorrhage ([facility]) 08/2017 Macular Pucker Past Surgical History: Procedure Laterality Date ABLATION A-FIB 11/[address] [facility] APPENDECTOMY CARDIAC SURGERY 09/2020 [facility] CATARACT EXTRACTION Right 02/2022 CHOLECYSTECTOMY 01/02/2022 CT [...] Watchman FLX Lt atrial appendage closure device CO THYROIDECTOMY SUBSTERNAL CERVICAL APPROACH 09/24/2018 RETINAL DETACHMENT SURGERY Left reattach THROAT SURGERY 09/13/2022 throat dilation at TOTAL KNEE ARTHROPLASTY Left 05/08/2016 partial TRANSESOPHAGEAL ECHOCARDIOGRAM (CHANTELLE) 04[facility] Left 01/2019 Family History [...] , wrist extensors , wrist flexor , core setter strength 5/5. LUE Strength deltoid , biceps , triceps , wrist extensors , wrist flexor , core setter strength 5/5. RLE Strength illopsoas, quadriceps, tibialis [...] reflex 2+ . Gonzales's sign negative. Coordination: Sybwal-zo-jnam testing and rapid alternating movements are normal [...] recommended. I have reviewed extensive notations from [facility] in January 2023 which detailed the patient [...] of pacemaker implantation with Dr. Vilchis in [place]. Certainly close follow up with Cardiology team in [facility] are of the utmost importance. Plan: [...] for tertiary care center for opinion by [facility] neuromuscular institute given the complex cardiac history and concern for seronegative myasthenia gravis. Certainly high-degree medical decision-making with need for extensive investigation in ongoing discussion investigation about potentially life- threatening issue such as myasthenic crisis. Pt has been fully educated on their diagnosis, lab results, treatment options, follow up plan, return instructions, and discussion of mental health issues documented in this encounterSaint Luke's North Hospital–SmithvilleVbxazxecvq46-85-1925 History of Present illness Narrative* Eleonora Leo [...] A few weeks prior, he consulted an medical numerical control operator who conducted an ice test, which yielded positive results. Subsequent preliminary blood work was negative. He has previously sought neurological care at the [facility]. He has a history of smoking but does not recall undergoing any lung screening tests. He is aware ofsome calcification on the left side of his lungs but does not currently follow up with a communications program manager. SOCIAL HISTORY The patient used to smoke [...] Medical History: Diagnosis Date A-fib (CMS/HCC) 11/[address] [facility] Abdominal aortic aneurysm without rupture ([facility]) Aortic root dilatation ([facility]) Biliary acute pancreatitis without necrosis or infection Brain lesion SMALL BRAIN LESION C/W MS Cataract COVID-19 GI bleed History of being hospitalized 12/2021 abd pain, lap ivy History of partial knee replacement left Hypothyroid ([facility]/HCC) Kidney stone with mild hydonephrosis Orthostatic hypotension Paroxysmal atrial fibrillation ([facility]/HCC) Personal history of medical treatment BORDERLINE MS, MG, ALS Vitreous hemorrhage ([facility]) 08/2017 Macular Pucker Social History Tobacco [...] History: Procedure Laterality Date ABLATION A-FIB 11/[address] [facility] APPENDECTOMY CARDIAC SURGERY 09/2020 [facility] CATARACT EXTRACTION Right 02/2022 CHOLECYSTECTOMY 01/02/2022 CT ANGIO HEAD 03/05/2023 CT ANGIO HEAD 03/05/2023 CT ANGIOGRAM ABDOMEN 07/06/2021 CT ANGIOGRAM ABDOMEN 07/06/2021 CT ANGIOGRAM ABDOMEN PELVIS 08/24/2021 CT ANGIOGRAM ABDOMEN PELVIS 08/24/2021 CT ANGIOGRAM ABDOMEN PELVIS 09/16/2021 CT ANGIOGRAM ABDOMEN PELVIS 09/16/2021 CT ANGIOGRAM CHEST 07/06/2021 CT ANGIOGRAM CHEST [facility] ANGIOGRAM HEART CORONARY 08/30/2020 [...] Watchman FLX Lt atrial appendage closure device CO THYROIDECTOMY SUBSTERNAL CERVICAL APPROACH 09/24/2018 RETINAL DETACHMENT SURGERY Left reattach THROAT SURGERY 09/13/2022 throat dilation at TOTAL KNEE ARTHROPLASTY Left 05/08/2016 partial TRANSESOPHAGEAL ECHOCARDIOGRAM (CHANTELLE) [facility] 01/2019 REVIEW OF [...] tenderness or frontal sinus tenderness. Mouth/Throat: Lips: [place]. Mouth: Mucous membranes are moist. Pharynx: Oropharynx [...] Follows with cardiology. Coronary artery disease involving agdaagux heart, unspecified vessel or lesion type, unspecified [...] obstruction Stage 3a chronic kidney disease (HCC) ([facility]) Chronic gouty arthritis Vitamin D deficiency Chronic migraine without aura, with intractable migraine, so stated, with status migrainosus ([facility]) Meniere's disease, unspecified laterality Acquired ptosis of right eyelid - Ambulatory referral to Neurology; Future Acquired hypothyroidism ([facility]/HCC) - TSH W/REFLEX TO FT4; Future History of smoking - CT lung screening low dose; Future Bronchiectasis, uncomplicated ([facility]) Chronic combined systolic (congestive) and diastolic (congestive) heart failure ([facility]) ADA (obstructive sleep apnea) Medicare annual wellness visit, subsequent Discussed height, weight and BMI. Encouraged healthy diet and regular exercise. Discussed vaccines and encouraged yearly flu shot. Annual eye and dental exam. Vaccines and cancer screens reviewed forcompleteness. Screen labs as needed. Assessed needs for tools in the home for independence. Living will and durable power of assistant city attorney reviewed. Updated patient problem list and reviewed all current medications with patient. Given time to ask questions. Assessment & Plan 1. Suspected myasthenia gravis. The patient reports symptoms including eyelid drooping and difficulty keeping the eye open, which occurs two to three times a week and started about 1.5 to 2 months ago. An ice test performed by the medical numerical control operator was positive, but preliminary blood work was negative. A referral to [facility] in [place] will be initiated for further evaluation. 2. [...] follow-ups on file. documented in this encounterNOMS [id number] Telephone encounter Note* Telephone Encounter - Riley Coleman - 05/28/2024 11:49 AM EST Lab Results given [facility]SmithvilleAxqtqkkpky72-56-8909 Miscellaneous Notes* Telephone Encounter - Riley Coleman - 05/28/2024 11:49 AM EST Lab Results given * Telephone Encounter - Elo Cruz MA - 05/27/2024 8:57 AM EST ----- Message from Dr. Radha Burris sent at 05/26/2024 10:06 PM EST ----- His recent testing requested by the specialist is negative. documented in this encounterSaint Luke's North Hospital–SmithvilleTcknijlmrp53-33-4584 Telephone encounter Note* Telephone Encounter - Elo Cruz MA - 05/27/2024 8:57 AM EST ----- Message from Dr. Radha Burris sent at 05/26/2024 10:06 PM EST ----- His recent testing requested by the specialist is negative. [facility]SmithvilleJjrwfuwngo61-40-2729 NoteCardiovascular Medicine [facility] SUBJECTIVE Chief Complaint Patient presents with [...] cardiac catheterization 08/2023, POTS who presented to [facility] ED with ongoing chest pain that has [...] week. Patient Active Problem List Diagnosis A-fib (CMS/[facility]) Essential hypertension Coronary artery disease involving agdaagux coronary artery of agdaagux heart without angina pectoris Recurrent falls History [...] replacement Aphasia Bilateral pa (more content not included)...[facility] 04-28-2024 NotePatient here for follow up [facility]. He was seeing Dr. Vilchis in the [...] light-headedness. All other systems reviewed and are negative.[facility] 04-10-2024 NoteHospital Medicine Discharge Summary [...] cardiac catheterization 08/2023, POTS who presented to [facility] ED with ongoing chest pain that has [...] Your Medications These medications were sent to [facility] [address] [place] [address] [address] [place] [address] [address] isosorbide mononitrate ER 30 mg 24 hr [...] symmetric air entry. Abdomen: (more content not included)...[facility] 04-10-2024 NoteHospital Medicine Discharge Summary [...] cardiac catheterization 08/2023, POTS who presented to [facility] ED with ongoing chest pain that has [...] Your Medications These medications were sent to [facility] [address] [place] [address] [place] [address] [address] isosorbide mononitrate ER 30 mg 24 hr [...] symmetric air entry. Abdomen: (more content not included)...[facility] 04-10-2024 Note Attestation signed by [...] Teaching Physician's Revisions: none Erika Mesa MD [facility] Progress Note Subjective Subjective: Patient [...] Value Ventricular Rate 79 Atrial Rate 79 CO Interval 246 QRS DURATION 76 QT Interval 384 QTC CALCULATION(BAZETT) 440 R-Baltic 61 T Wave Baltic 224 Impression Atrial-paced rhythm with prolonged AV [...] Bubble Study Result Date: 04/09/2024 1 1 [facility] Heart Station [address] [place] [address] [phone] (fax) Echocardiogram-[facility] Name: YOLI ANTUNEZ Study Date: 04/09/2024 11:49 AM B/P: 123 mmHg/92 mmHg HR: Date of : 1955 Location: [facility] Height: 78 in. Age: 68 year(s) Patient Room: [facility] Weight: 248 lb. Gender: Male Patient Status (more content not included)...[facility] 04-09-2024 NoteHospital Medicine Daily Progress Note - 04/09/2024 11:51 AM; Room: [facility]/3109- Admission: 04/08/2024 3:17 PM; Length of stay: 0 days THE HOSPITALIST TEAM PREFERS TO USE [employer] FOR NON-URGENT COMMUNICATION 7AM-7PM. IF I DO NOT RESPOND WITHIN 20 MINUTES OR URGENT MATTERS, PLEASE CALL THROUGH THE SUPERVISOR RECORD PRESS. FROM 7PM-7AM, PLEASE PAGE [phone](COVR). Code Status: Full Code Barriers to Discharge: [...] pain Active Problems: EMELIA (acute kidney injury) ([facility]) Abnormal ECG Assessment and Plan chest [...] LDL 144 11/05/2019 No results found for: [id number] , IRON , TIBC , C3 , [...] Candie Hutchinson MD Hospital Medicine 04/09/2024 11:51 [facility]12-18-2024 NoteHospital Medicine History and Physical 04/09/2024 2:39 AM THE HOSPITALIST TEAM PREFERS TO USE [employer] FOR NON-URGENT COMMUNICATION 7AM-7PM. IF I DO NOT RESPOND WITHIN 20 MINUTES OR URGENT MATTERS, PLEASE CALL THROUGH THE SUPERVISOR RECORD PRESS. FROM 7PM-7AM, PLEASE PAGE [phone](COVR). Chief Complaint Chief Complaint Patient presents with Chest Pain Shortness of Breath History of Present Illness Yoli Antunez Jr. is an 68 y.o. male who came from spray foam installer with past medical history including, but not limited to HTN, CAD, recurrent falls, history of TIA, loop recorder, headache, ADA, multifocal atrial tachycardia, BPH without obstruction, cardiac radiofrequency ablation, pacemaker, syncope or collapse, AAA without rupture, POTS, A-fib, SSS, and A-fib with RVR. Patient presented to [facility] ED with c/o chest pain. Patient reports [...] at times. He reports he saw his spray foam installer today who performed an EKG which showed acute lead inversions prompting spray foam installer to send him into the ED. Patient [...] negative. BNP unremarkable 66. Patient admitted to [place] with cardiology consult for further evaluation and [...] pain Active Problems: EMELIA (acute kidney injury) ([facility]) Abnormal ECG Assessment and Plan Chest [...] and PT, PT/INR, APTT (more content not included)...[facility]12-18-2024 NoteSY[facility] [...] angina and have sent him to the [facility] emergency room for further evaluation. I called the emergency room physician and spoke with them personally and also called the marketing graphics specialist on the inPatient's service and spoke with [...] MR HEAD ANGIO WO IV CONTRAST 07/09/2022 [facility] MR IMAGING MR NECK ANGIO WO IV CONTRAST 07/09/2022 MR NECK ANGIO WO IV CONTRAST 07/09/2022 [facility] MR IMAGING NECK SURGERY THYROIDECTOMY SH: Social Determinants of Health Tobacco Use: Medium Risk (04/08/2024) Patient History Smoking Tobacco Use: Former Smokeless Tobacco Use: Former Passive Exposure: Not on file Alcohol Use: Not At Risk (12/17/2023) [facility] AUDIT-C Frequency of Alcohol Consumption: Monthly or [...] Physical Activity: Sufficiently Active (12/17/2023) [facility] Exercise Vital Sign Days of Exercise per Week: 7 days Minutes of Exercise per Session: 30 min Stress: Patient Declined (12/17/2023) Received from [facility] - Occupational Stress Questionnaire Feeling of Stress : Patient declined Social Connections: Moderately Isolated (12/17/2023) Received from [facility] Social Connection and Isolation Panel [NHANES] Frequency of Communication with Friends and Family: More than three times a week Frequency of Social Gatherings with Friends and Family: More than three times a week Attends Amish Services: Never Active Member of Clubs or Organizations: No Attends Club or Organization Meetings: Never Marital Status: Intimate Partner Violence: Not At Risk (01/27/2024) Humiliation, Afraid, Rape, and Kick questionnaire Fear of Current or Ex-Partner: No Emotionally Abused: No Physically Abused: No Sexually Abused: No Depression: Not at risk (02/06/2024) Received from [facility] hospital PHQ-2 Patient Health Questionnaire-2 Score: 0 Housing Stability: Low Risk (01/27/2024) Housing Stability Vital Sign Unable to Pay for Housing in the Last Year: Not on file Number of Places Lived in the Last Year: Not on file Unstable Housing in the Last Year: No Utilities: Not At Risk (01/27/2024) [facility] Utilities Threatened with loss of utilities: No Health Literacy: Adequate Health Literacy (12/17/2023) Received from Critical access hospital B1300 Health Literacy Frequency of need for help with medical instructions: Never Meds: No current facility-administered medications on file prior to visit. (more content not included)...[facility]11-20-2024 Note SYNCOPE AND AUTONOMIC DISORDERS [...] I spent more than 45 minutes in jqww-lg-hqyi patient counseling and therapeutic decision making with [...] MR HEAD ANGIO WO IV CONTRAST 07/09/2022 [facility] MR IMAGING MR NECK ANGIO WO IV CONTRAST 07/09/2022 MR NECK ANGIO WO IV CONTRAST 07/09/2022 [facility] MR IMAGING NECK SURGERY THYROIDECTOMY SH: Social Determinants of Health Tobacco Use: Medium Risk (02/06/2024) Received from [facility] Patient History Smoking Tobacco Use: Former Smokeless Tobacco Use: Never Passive Exposure: Not on file Alcohol Use: Not At Risk (12/17/2023) Received from [facility] access hospital AUDIT-C Frequency of Alcohol Consumption: Monthly or [...] Physical Activity: Sufficiently Active (12/17/2023) Received from [facility] Exercise Vital Sign Days of Exercise per Week: 7 days Minutes of Exercise per Session: 30 min Stress: Patient Declined (12/17/2023) Received from [facility] - Occupational Stress Questionnaire Feeling of Stress : Patient declined Social Connections: Moderately Isolated (12/17/2023) Received from [facility] hospital Social Connection and Isolation Panel [NHANES] Frequency of Communication with Friends and Family: More than three times a week Frequency of Social Gatherings with Friends and Family: More than three times a week Attends Amish Services: Never Active Member of Clubs or Organizations: No Attends Club or Organization Meetings: Never Marital Status: Intimate Partner Violence: Not At Risk (01/27/2024) Humiliation, Afraid, Rape, and Kick questionnaire Fear of Current or Ex-Partner: No Emotionally Abused: No Physically Abused: No Sexually Abused: No Depression: Not at risk (02/06/2024) Received from [facility], [facility] PHQ-2 Patient Health Questionnaire-[address]: [address] (more content not included)...[facility] 02-10-2024 Telephone encounter Note* Telephone Encounter - Riley [place] - 02/10/2024 11:10 AM EDT Jamil was in last week for rash - was told if not better to call the office . It isnt any better -asking if something else can be called in [facility]villeZklilqchrt93-54-9812 Miscellaneous Notes* Telephone Encounter - Riley [place] - 02/10/2024 11:10 AM EDT Jamil was in last week for rash - was told if not better to call the office . It isnt any better -asking if something else can be [facility] documented in this encounterSaint [facility] Hospital–SmithvilleJrahuooqil12-53-6585 History of Present illness Narrative* Radha Burris [...] couple months. Rash has stayed the same. [facility] on 01/29 patient went in for chest pain dueto afib but chest pain has stopped since then. ) HPI: HPI History of Present Illness The patient presents for evaluation of multiple medical concerns. He experienced chest pain, initially thought to be a recurrence of atrial fibrillation (AFib). However, his spray foam installer confirmed that he is no longer in [...] treatment. Three referrals were sent to the [facility], but they claim to have lost [...] PLAN: Assessment & Plan 1. Anxiety. The spray foam installer confirmed that the recent chest pain was [...] atrial fibrillation (CMS/HCC) Now back in sinus. Gristmill Operator wants the anxiety treated. Discussed in detail with him today. Other Visit Diagnoses Dermatitis Relevant Medications mometasone (Elocon) 0.1 % ointment Family History Problem Relation Name Age of Onset Lung cancer Mother Hypertension Mother Stroke Mother Aneurysm Father Lung cancer Father Hypertension Father No Known Problems Brother Flowsheet Row Patient Outreach from 10[facility]14[facility] with Radha Taylor RN Hospital Information ED, Hospital or Jail Facility Discharge? ED Patient has been contacted within 1 week of being seen in the ED No Have two attempts been made to contact the patient within one week of being seen in the ED? No Discharge Date 10/05/23 Discharged To: Home Setting Discharge Hospital [facility] Engagement Call Start Time 1200 [...] Up Wrap Up Additional Comments Pt to [facility] 10/05/23. He presented with left index finger infection - he drilled a screw into finger. He was eval, treated and dc to home. DX: Cellulitis and Chest pain. New prescription given: Doxycycline. Call End Time 1206 No follow-ups on file. documented in this encounterSaint [facility]'s [facility] Hospital[facility]SmithvilleMatqzstypp74-29-2284 History of Present illness Narrative* Sofia Vigil [...] Take medications as prescribed. documented in this encounterSaint Luke's [facility] Hospital–SmithvilleOundvhmhub59-44-6401 History of Present illness Narrative* Shivani Adams [...] Thoracic aortic ectasia (CMS/HCC) documented in this encounterSaint Luke's North Hospital–SmithvilleCidbdpfgjp03-35-8962 Evaluation note* Type Assessment Date assessment Other cervical disc degeneration , unspecified cervical region [facility] [employer] Work Phone: [phone] History of Present illness Narrative* Encounter Date [...] back for a follow up from his spray foam installer. New Problem Spine-cervical Locat ion: Pain diagram [...] well up until a few months ago. [place] [employer] [facility] Work Phone: 1(834) 875-298309-03-2024 History of Present illness Narrative* Radha Burris [...] medication, he has not found relief. His spray foam installer, Dr. Vilchis, is uncertain if these symptoms [...] is seeking a referral to a new marketing production manager as he was dissatisfied with his [...] addition of sildenafil or tadalafil by his spray foam installer, it is prudent not to alter his [...] referral will be made to a new marketing production manager for further evaluation and management of his diarrhea. He has tried multiple medications, including cholestyramine and Imodium, without significant relief. Assessment/Plan Problem List Items Addressed This Visit Angina at rest (CMS/HCC) Other Visit Diagnoses Diarrhea, unspecified type - Primary Relevant Orders Ambulatory referral to Gastroenterology Autonomic dysfunction documented in this encounterSaint Luke's [facility] Hospital–SmithvillePrigwpneqf56-43-6580 History of Present illness Narrative* María Pearl APRN.[facility] - 05/31/2023 10:45 AM EST Yoli Antunez is a 68 year old male. Patient presents with: Follow Up Today I had the opportunity to have a virtual visit with Yoli Antunez I have communicated my name and active licensure. The patient's identity and physical location wereverified at the time of this visit. Either the patient or their legal kiosk sales representative has been informed of the [...] will repeat tilt table testing here at [facility]. We reviewed the diagnosis [...] was seen by Dr. Vilchis at the [facility] yesterday. Dr. Vilchis feels that Jamil has sick sinus syndrome. He is going to have a pacemaker placed. Jamil is going to have an echocardiogram and stress test next week. Pacemaker to follow the above testing. Skin nerve biopsy here at [facility] not indicative of small [...] He was seen by Dr. Vilchis at [facility] who would like to place [...] which included preparing to see the patient, xenj-cx-wsmk patient care, completing clinical documentation, obtaining and/or [...] this visit on 05/31/23. María Pearl MSN, POWERHOUSE MECHANIC HELPER, TUBE CLEANING OPERATOR-C documented in this encounterCl[facility]01-29-2024 Evaluation note* Encounter Date Diagnosis Assessment Notes Treatment Notes Treatment Clinical Notes Apr, Abdominal pain (ICD-10 - R10.9) Apr,4Diarrhea (ICD-10 - R19.7) [facility] Other 12-26-[facility]* Encounter Date Diagnosis Assessment Notes Treatment Notes Treatment Clinical Notes Mar, Abdominal pain (ICD-10 - R10.9) Mar,3Diarrhea (ICD-10 - R19.7) [facility] Other 11-29-2023 Evaluation note* Encounter Date Diagnosis Assessment Notes Treatment Notes Treatment Clinical Notes Feb, Diarrhea (ICD-10 - R19.7) Feb,Hiatal hernia (ICD-10 - K44.9) [facility] Other 11-06-2023 History of Present illness Narrative* Joann Stark PA-C - 02/25/2023 2:09 PM EST Skin Biopsy Procedure Note Skin Biopsy Accession Number: [id number] Biopsy Date: 02/25/2023 Referring physician: María Pearl [...] Procedure Note Procedure confirmed with provider and community support worker. Yes, left leg 2 skin biopsies. The [...] home. Specimens were labeled and sent to [facility] Cutaneous Nerve Laboratory. Procedure was performed by: Joann Stark PA-C Assistance in supply/equipment preparation performed by: DAVID Downs Sign out is complete. documented in this encounterClinton [facility] Hospital10-17-2023 Miscellaneous Notes* Telephone Encounter - Shivani Nath RN - 02/05/2023 1:00 PM EDT Images from the original note were not included. María Pearl APRN.CREOSOTING ENGINEER You 7 minutes ago (12:52 PM) This is a normal result. [place] YAMILA Carnes, RN * Telephone Encounter - Shivani Nath RN - 02/05/2023 12:48 PM EDT Images from the original note were not included. Copper: YAMILA Carnes, RN * Telephone Encounter - Aydee Hunter - 02/05/2023 12:06 PM EDT Scanned in results from [facility] for review documented in this encounterClinton [facility] Hospital10-12-2023 History of Present illness Narrative* [...] and scan are done. documented in this encounterUnSelect Medical [facility] Work Phone: [phone]) 392-953410-12-2023 Instructions* Patient Instructions* Yossi Chen MD - 01/31/2023 3:00 PM EDT I will get stool culture and CT scan to figure out the reason for the abdominal pain and diarrhea documented in this encounterClerm[facility] Work Phone: [phone] 406-761510-09-2023 Miscellaneous Notes* Telephone Encounter - Dominique Burns RN - 01/28/2023 4:08 PM EDT Images from the original note were not included. María Pearl APRN.CREOSOTING ENGINEER You 6 hours ago (9:39 AM) I have a message out to headache clinic about adjusting his medication. YAMILA Cage, RN, BA documented in this encounterClinton [facility] Hospital10-09-2023 Miscellaneous Notes* Telephone Encounter - Dominique Burns RN - 01/28/2023 3:39 PM EDT JESSICA sent MCM to patient. Patient read. YAMILA Cage, RN, BA documented in this encounterClinton [facility] Hospital10-09-2023 Miscellaneous Notes* Telephone Encounter - Dominique Burns RN - 01/28/2023 10:43 AM EDT Images from the original note were not included. María Pearl APRN.CREOSOTING ENGINEER You 15 minutes ago (10:27 AM) Thank you. Appears normal. YAMILA Vivar, RN, BA * Telephone Encounter - Dominique Burns RN - 01/28/2023 9:58 AM EDT Images from the original note were not included. YAMILA Cage, RN, BA * Telephone Encounter - Aydee Hunter - 01/28/2023 9:36 AM EDT Scanned in results from [facility] for review documented in this encounterClinton [facility] Hospital09-11-2023 History of Present illness Narrative* Kassie Richardson APRN.CREOSOTING ENGINEER - 12/31/2022 3:15 PM EDT Head[facility] Follow up visit December 31, [...] He was evaluated by Cardiology at the [facility] for syncopal episodes. Likely a [...] dizziness . put in in the front loader technician and helped him to the house - [...] essentially unremarkable including troponins and ECG 09/11/2022 [facility]- Cardiology - Jackie Banks DIRECTOR OF PAYROLL wrote: I copied and pasted my initial consult note from [facility] date 07/20/2022 for continuity of care: Hx paroxysmal atrial fibrillation. Undervent a watchman device implant at [facility] 03/06/2022. History of CAD. AAA not increased, [...] Last evaluated one month ago by neurology [facility]. Recent MRA MRV. HPI: Syncope [...] We added venlafaxine, did not tolerate- caused DUMOTN Added pyridostigmine but not effective and caused excessive diarrhea Assessment/Plan The primary encounter diagnosis was Autonomic dysfunction. Diagnoses of Syncope and collapse, Essential hypertension, Labile blood glucose, and Pain of left calf were also pertinent to this visit. Problem List Items Addressed This Visit Referred [facility] to [facility]; Headache 1 Onset: - Migraine [...] (abdominal aortic aneurysm) without rupture ([facility]) Arthritis Atrial fibrillation/flutter CAD (coronary artery disease) CKD (chronic kidney disease) stage 3, GFR 30-59 ml/min ([facility]) Ex-smoker Gastric ulcer GERD (gastroesophageal reflux disease) Gout History of GI bleed HLD (hyperlipidemia) Hypertension 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 ADA treated with BiPAP Peripheral neuropathy Restless leg syndrome TIA (transient ischemic attack) x 2 ALLERGIES Allergen Reactions Penicillins Unknown Tikosyn [Dofetilide] Other: See Comments Aphasia, dizzy, muscle cramps Vancomycin Anaphylaxis MR neck / head angio 07/09/2022- at [facility] Impression No gross evidence for flow-limiting stenosis of bilateral extrarenal vertebral or carotid arteries accounting for extensive patient motion artifact. If persistent concern for an abnormality of the carotid or vertebral arteries, consider CTA if clinically indicated. Impression No focal stenosis, occlusion, or aneurysmal dilatation. Complete [place] of [place]. CT brain 05/23/2022 Impression *Negative [...] osteopenia, and partially imaged atlantoaxial arthritic changes. Diabetologist (topogram) images: No additional findings. HEADACHE SCORES: [...] articulation, and clear,coherent, and relevant. Short and skilled nursing memory, cognition and general fund of knowledge [...] followed by aphasia. He was evaluated in [place] for syncope - felt it was neurocardiogenic [...] which included preparing to see the patient, hvmz-ne-ohso patient care, completing clinical documentation, obtaining and/or reviewing separately obtained history, performing a medically appropriate examination, counseling and educating the patient/family/caregiver, and ordering medications, tests, or procedures. Kassie Richardson APRN.NEETU Headache Section [facility] December 31, 2022 5:03 PM documented in this encounterClinton [facility] Hospital08-03-2023 NoteSend Summary: Discharge Summary Providers: Provider RoleProvider Name Radha Jorge Abraham PrimaryHohman, Jennifer Note Recipients: Radha Burris MD - [id number] [] Discharge: Summary: Admission Date: .21-Nov-2022 05:06:00 [...] discharge: Full Code Electronic Signatures: Sivan Costa (POWERHOUSE MECHANIC HELPER-CREOSOTING ENGINEER) (Signed 22-Nov-2022 12:13) Authored: Send Summary, Summary Content, Ongoing Care, DNR Status Yossi Chen) (Signed 22-Nov-2022 12:27) Authored: Summary Content, Ongoing Care, Note Completion Last Updated: 22-Nov-2022 12:27 by Yossi Chen)[facility] 11-21-2022 NotePost Operative Note: PreOp Diagnosis: symptomatic hiatal hernia Post-Procedure Diagnosis: same Procedure: 1. Laparoscopic repair of Type 3 paraesophageal hernia with [place] wrap and gastroscopy 2. 3. 4. 5. Surgeon: April Resident/Fellow/Other Supply Chain Intern: Adrián/Elio Estimated Blood Loss (mL): none Specimen: [...] circumferentially. The retroesophageal window was created. The [place] drain was placed. I proceeded with mediastinal [...] esophagus to the right side. A lighted 56-Bolivian bougie was placed. The shoeshine maneuver was [...] #1 Ethibond with a Tony-Ran in a dubcwr-rz-xpobv fashion. The liver retractor was removed. The [...] Completion Last Updated: 21-Nov-2022 13:27 by Yossi Chen)[facility] 11-21-2022 History of Present illness Emkxlnjvr03-bdny-kep patient who underwent laparoscopic repair of paraesophageal [...] it down withwater. Denies heartburn and acid reflux.-[place] [facility] [address] DO Work Phone: [phone]) 719-711908-02-2023 History of Present illness Narrative 67-year-old patient [...] reflux, heartburn and having less coughing with meal-[place] [facility] [address] DO Work Phone: [phone]) 671-203008-02-2023 NoteHistory & Physical Reviewed: I have reviewed [...] Completion Last Updated: 21-Nov-2022 07:15 by Yossi Chen)[facility] 11-16-2022 Miscellaneous Notes* Telephone Encounter - Jessica Scott - 11/16/2022 5:55 PM EDT Received faxed report of medical records done at . Uploaded via [employer], will be available in [employer] for review shortly. documented in this encounterClinton [facility] Hospital07-03-2023 Miscellaneous Notes* Telephone Encounter - Kassie Richardson APRN.NEETU - 10/22/2022 4:33 PM EDT Opened in error Kassie Richardson APRN.CREOSOTING ENGINEER documented in this encounterClinton Memorial Hospital06-29-2023 History of Present illness Narrative* [...] discharged from treatment room. documented in this encounterClinton [facility] Hospital06-26-2023 NotePROCEDURE DETAILS Preoperative Diagnosis: Sleep apnea, G47.30 Postoperative Diagnosis: Sleep Apnea Surgeon: Arabella Terry Resident/Fellow/Other Supply Chain Intern: None of these were associated with this [...] Completion Last Updated: 15-Oct-2022 11:11 by Arabella Terry)[facility]06-26-2023 Miscellaneous Notes* Op Note - Arabella Butt MD - 10/15/2022 11:02 AM EDT PROCEDURE DETAILS Preoperative Diagnosis: Sleep apnea, G47.30 Postoperative Diagnosis: Sleep Apnea Surgeon: Arabella Terry Resident/Fellow/Other Supply Chain Intern: None of these were associated with this [...] 11:11 by Arabella Terry) documented in this [facility] Work Phone: 1(800) 459-787306-26-2023 Note* Op Note - Arabella Butt MD - 10/15/2022 11:02 AM EDT PROCEDURE DETAILS Preoperative Diagnosis: Sleep apnea, G47.30 Postoperative Diagnosis: Sleep Apnea Surgeon: Arabella Terry Resident/Fellow/Other Supply Chain Intern: None of these were associated with this [...] Last Updated: 15-Oct-2022 11:11 by Arabella Terry) [facility] Work Phone: [phone]) 542-900206-06-2023 Chief complaint Narrative - Reported* An interactive audio and video telecommunication system which permits real time communications between the patient (at the originating site) and provider (at the distant site) was utilized to providethis telehealth service. * Verbal consent was requested and obtained from YOLI ANTUNEZ on this date, 09/25/2022 02:30 PM, for a telehealth visit. * Dysphagia follow-up [facility] Work Phone: [phone]) [phone] History of Present illness Narrative* 67 year [...] more in his throat. Seeing neurology at [facility] for his intermittent aphasia. Still awaiting manometry results. * 09/04/22: * Here for follow-up. Esophagram completed 08/10/22 with moderate hiatal hernia, possible inflammatorynarrowing at GEJ, also area of mucosal irregularity for which endoscopy was recommended. He had manometry placed under endoscopy on 08/30/22, overall esophagus appeared normal on their exam with kcssf0hc nodule at GEJ that was biopsied. Pathology [...] esophagus and pill sticking in the vallecula [facility]ox[facility]rmpulusc[facility]Qxbzpxu Work Phone: [phone]) [phone] History of Present illness Narrative* 67 year [...] esophagus appeared normal on their exam with cnqdc6rh nodule at GEJ that was biopsied. Pathology [...] esophagus and pill sticking in the vallecula [facility]jpgliqozzfrk-[facility] Work Phone: 1(201) 577-568905-16-2023 Chief complaint Narrative - Reported* An interactive audio and video telecommunication system which permits real time communications between the patient (at the originating site) and provider (at the distant site) was utilized to providethis telehealth service. * Verbal consent was requested and obtained from YOLI ANTUNEZ on this date, 09/04/2022 11:30 AM, for a telehealth visit. * Dysphagia follow-up LZ-Inxmzlxunfkkqp-Pmgqgfv Work Phone: 1([phone]) [phone] NotePatient Name: Yloi Atnunez Procedure Date: 08/30/2022 7:32 AM Date of : 1955 Admit Type: Outpatient Site: [facility] Procedure Room 5 Ethnicity: Not or Race: White Attending MD: ELISEO Williamson, [id number] Procedure: Upper GI endoscopy Indications: Dysphagia for 5 years to both liquids and solids Patient Profile: This is a 67 year old male. Refer to note in patient chart for documentation of history and physical. Providers: ELISEO Williamson (Doctor), Jaylen Lo RN (Nurse), Florentino De Dios, Non Destructive Testing Specialist, Kristin Mcdaniels RN (Nurse) Referring: Radha Burris [...] specimen was done by the nurse and bio medical technician using the patient's name and medical record number. Estimated blood loss was minimal. A single 3 mm nodule was found at the gastroesophageal junction, 39 cm from the incisors. Biopsies were taken with a cold forceps for histology. Verification of patient identification for the specimen was done by the nurse and bio medical technician using the patient's name and medical [...] and technici (more content not included)...PROVATION - [id number] Reason for visit Narrative* An interactive audio and video telecommunication system which permits real time communications between the patient (at the originating site) and provider (at the distant site) was utilized to providethis telehealth service. * Verbal consent was requested and obtained from YOLI ANTUNEZ on this date, 08/13/2022 03:15 PM, for a telehealth visit. [facility] [id number] [place] Work Phone: [phone]) 556-151204-11-2023 Chief complaint Narrative - Reported* An interactive audio and video telecommunication system which permits real time communications between the patient (at the originating site) and provider (at the distant site) was utilized to providethis telehealth service. * Verbal consent was requested and obtained from YOLI JOHNSONHarini on this date, 07/31/2022 12:30 PM, for a telehealth visit. * Swallow EN-Wmsbdlvyuwilxe-Mizjfvs Work Phone: 1(338) 579-164804-11-2023 History of Present illness Narrative* 67 year [...] esophagus and pill sticking in the vallecula IG-Twrcfariuydvll-Yqkeklv Work Phone: 1(779) 721-765004-10-2023 Miscellaneous Notes* Telephone Encounter - Jonathan Pascual - 07/30/2022 3:40 PM EDT Received call from patient regarding Message Per Patient Local ERs do not understand patients symptoms, would like to know if he can receive response from provider urgently * Telephone Encounter - Jessica Mccoy Pss - 07/30/2022 3:13 PM EDT Patient last seen 05/31/2022, but had infusions 07/26/2022. [facility] History of Present illness Narrative* [...] on 45 day follow-up. documented in [facility]04-[facility]-2023 Miscellaneous Notes* Telephone Encounter - Fadumo Mckenzie - 07/23/2022 11:46 AM EDT Patient last seen on 05/31/22. Asked to follow up with Infusions. documented in [facility] encounterCl[facility]03[facility]-2023 Miscellaneous Notes* Telephone Encounter - Kassieron Richardson APRN.CNP - 07/13/2022 4:04 PM EDT There are no results in Epic from [facility] in imaging. When did he have them done? Can they fax the results and send the disc. Kassie documented in this encounterCl[facility]02-13-2023 Miscellaneous Notes* Telephone Encounter - Kassie Richardson APRN.CNP - 06/04/2022 12:48 PM EST Orders for MRA/MRV to be mailed to patient. Kassie Richardson APRN.CNP documented in this encounterClinton [facility]02-09-2023 Instructions* Patient Instructions* Kassie Richardson APRN.CNP - 05/31/2022 9:01 AM EST Greater Occipital Nerve Block Article in [place] [employer] Journal By: Bhavesh Boyd MD Many patients with chronic headache report that their pain typically arises from the neck or, more specifically, the base of the skull. Often that pain arises on one side or the other and extends forward to involve the top of the head, the yazidism, the forehead, the eye or some combination [...] give it at least one more try. https://americanheadachesociety.org/wp-content/uploads//Akjjkpphq-Wrclw-V locks_Aug-2009.pdf documented in this encounterClinton [facility]02-09-2023 History of Present illness Narrative* Kassie Richardson APRN.NEETU - 05/31/2022 8:00 AM EST Head[facility] Follow up visit May 31, [...] unrevealing and negative. I sent patient a [employer] message with this information and we can try [facility] to see if this is migrainous [...] other than aphasia. He was seen at [facility] for this previously (2020 note, migraine), and follows w/ Neurologist Dr. Wolff in [place]. 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 Diabetologist (topogram) images: No additional findings. 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 Short and skilled nursing memory, cognition and general fund of knowledge [...] Care Visit completed when applicable. Kassie Richardson APRN.CREOSOTING ENGINEER The risks, benefits and anticipated outcomes of [...] which included preparing to see the patient, [id number] patient care, completing clinical documentation, obtaining and/or reviewing separately obtained history, performing a medically appropriate examination, counseling and educating the patient/family/caregiver, and ordering medications, tests, or procedures. Kassie Richardson APRN.NEETU Headache Section [facility] May 31, 2022 documented in this encounterClinton [facility]09-16-2022 History of Present illness Narrative* [...] discharge. Tad Corea MD Internal medicine, PGY-2 [facility], [facility] @TODAY@ 10:53 AM Attending Physician Statement [...] MD Nephrology Attending Physician [facility] 01/05/2022 * Dariela Walker MD - 01/05/2022 10:40 AM EDT Images from the original note were not included. [facility] Office: [phone] Mehdi Mcallister DO, Meliton Willard DO, Vicente [...] George MD, Octaviano Bolden MD, Julia Vasquez, CREOSOTING ENGINEER, Joanne Hameed, CREOSOTING ENGINEER, Jazmine Huitron, CREOSOTING ENGINEER, Tono Braun, CREOSOTING ENGINEER, Annie Quijano, DNP, Brunilda Fuller, CREOSOTING ENGINEER, Andria Rutherford, CREOSOTING ENGINEER, Akila Franks, CREOSOTING ENGINEER, Shivani Rascon, CREOSOTING ENGINEER, Mayte Martinez, CREOSOTING ENGINEER, DARNELL NelsonC, Esha Kumari, METAL FINISHER, Monica Levy, DNP, Marifer Dunne, CREOSOTING ENGINEER, Rosie Longoria, [facility], Nohelia Morris, CREOSOTING ENGINEER [facility] IN-PATIENT SERVICE [facility] Progress Note Name: Yoli Antunez Acct: [id number] Room: [facility] Day: 5 Admit Date: 12/31/2021 11:15 [...] improved to 2.5, bicarb 25 Brief History: 56-zaci-akx-year-old with prior history of CKD 3, hypertension, prior TIA, paroxysmal A. fib, aortic root aneurysm presented with right lower quadrant and flank pain, initially started on 12/28/2021 when he was evaluated at [facility]. Imaging suggested possible epiploic appendicitis [...] by Darline Walden MD S/p egd at [facility] 08/2020 Plan: S/p cholecystectomy day3 -Continue [...] corrected by editing Spencer Grijalva MD MD, [facility] (), FACP 01/04/2022 1:31 PM [facility] * Dariela Walker MD - 01/04/2022 10:45 AM EDT Images from the original note were not included. [facility] Office: [phone] Mehdi Mcallister DO, Meliton Willard DO, Vicente [...] George MD, Octaviano Bolden MD, Julia Vasquez, CREOSOTING ENGINEER, Joanne Hameed, CREOSOTING ENGINEER, Jazmine Huitron, CREOSOTING ENGINEER, Tono Braun, CREOSOTING ENGINEER, Annie Quijano, KENYA, Brunilda Fuller, CREOSOTING ENGINEER, Andria Rutherford, CREOSOTING ENGINEER, Akila Franks, CREOSOTING ENGINEER, Shivani Rascon, CREOSOTING ENGINEER, Mayte Martinez, CREOSOTING ENGINEER, Aliya Reyes PA-C, Esha Kumari, METAL FINISHER, Monica Levy DNP, Marifer Dunne, CREOSOTING ENGINEER, Rosie Longoria, CREOSOTING ENGINEER, Nohelia Morris, CREOSOTING ENGINEER [facility] IN-PATIENT SERVICE [facility] Progress Note Name: Yoli Antunez Acct: [id number] Room: 0318/0318-01 IP Day: 4 Admit Date: 12/31/2021 11:15 PM PCP: Radha Price MD Code Status: Full Code Subjective: C/C: nausea,vomiting, fevers Interval History Status: improved. Patient indicates doing well no nausea vomiting. Continues to have left upper quadrant pain intermittently. No flatus or bowel movement yet . hemodynamically stable. Creatinine improved to 3.07 WBC 12.2 Brief History: 74-rlfn-ejv-year-old with prior history of CKD 3, hypertension, prior TIA, paroxysmal A. fib, aortic root aneurysm presented with right lower quadrant and flank pain, initially started on 12/28/2021 when he was evaluated at [facility]. Imaging suggested possible epiploic appendicitis [...] stage 3, GFR 30-59 ml/min ([facility]) 01/01/2022 Yes Non-intractable vomiting with nausea [...] by Darline Walden MD S/p egd at [facility] 08/2020 Plan: S/p cholecystectomy day2 -Continue [...] Progress Note PATIENT: YOLI ANTUNEZ CSN #: [id number] : 1955 ADMIT DATE: 12/31/2021 11:15 PM [...] RN CDS. Please call/text/PS with any questions; [phone]. Options provided: -- Sepsis, present on admission [...] MD 01/03/2022 4:35 PM * Janet Ford, POWERHOUSE MECHANIC HELPER - CREOSOTING ENGINEER - 01/03/2022 2:02 PM EDT [facility] Yoli Antunez is a [...] results for input(s): LABIRON, TIBC, IRON, FERRITIN, [id number], FOLATE, OCCULTBLD in the last 72 hours. [...] your patient. Janet Ford APRN - NEETU [place], [place] Please note that this note was generated using a voice recognition dictation software. Although every effort was made to ensure the accuracy of this automated process control manager, some errors in process control manager may have occurred. Associated attestation - Juan [...] and primary team. Juan David Marr MD [facility] [place], [place] * Dariela Walker MD - 01/03/2022 9:30 AM EDT Images from the original note were not included. [facility] Office: [phone] Mehdi Mcallister DO, Meliton Willard DO, Vicente [...] George MD, Octaviano Bolden MD, Julia Vasquez, CREOSOTING ENGINEER, Joanne Hameed, CREOSOTING ENGINEER, Jazmine Huitron, CREOSOTING ENGINEER, Tono Braun, CREOSOTING ENGINEER, Annie Quijano, DNP, Brunilda Fuller, CREOSOTING ENGINEER, Andria Rutherford, CREOSOTING ENGINEER, Akila Franks, CREOSOTING ENGINEER, Shivani Rascon, CREOSOTING ENGINEER, Mayte Martinez, CREOSOTING ENGINEER, Aliya Reyes PA-C, Esha Kumari, METAL FINISHER, Monica Levy, DNP, Marifer Dunne, CREOSOTING ENGINEER, Rosie Longoria, CREOSOTING ENGINEER, Nohelia Morris, CREOSOTING ENGINEER [facility] IN-PATIENT SERVICE [facility] Progress Note Name: Yoli Antunez Acct: [id number] Room: 0318/0318-01 Day: 3 Admit Date: 12/31/2021 [...] improved, lipase improved to 250 Brief History: 32-tkzf-caf-year-old with prior history of CKD 3, hypertension, prior TIA, paroxysmal A. fib, aortic root aneurysm presented with right lower quadrant and flank pain, initially started on 12/28/2021 when he was evaluated at [facility]. Imaging suggested possible epiploic appendicitis [...] results found for: POCPH, PHART, PH, POCPCO2, [id number], PCO2, POCPO2, PO2ART, PO2, POCHCO3, OOG9YVU, HCO3, NBEA, PBEA, BEART, BE, THGBART, THB, LQU0KAM, CKYK0EHD, F6QPFLZX, O2SAT, FIO2 Lab Results Component Value Date/Time [...] stage 3, GFR 30-59 ml/min ([facility]) 01/01/2022 Yes Non-intractable vomiting with nausea 01/01/2022 Yes Jaundice 01/01/2022 Yes Lactic acid acidosis 01/01/2022 Yes Hyperglycemia 01/01/2022 Yes Paroxysmal A-fib (HCC) 01/01/2022 Yes History of TIA (transient ischemic attack) 01/01/2022 Yes Apnea 01/01/2022 Yes History of kidney stones 01/01/2022 Yes History of peptic ulcer 01/01/2022 Yes Overview Signed 01/01/2022 2:21 AM by Darline Walden MD S/p egd at [facility] 08/2020 Plan: S/p cholecystectomy day1 -Was [...] were not included. PROGRESS NOTE PATIENT NAME: Yloi Antunez DATE: 01/03/2022 SURGEON: Hilda PRIMARY CARE [...] from the original note were not included. [facility] Office: [phone] Mehdi Mcallister DO, Meliton Willard DO, Vicente [...] George MD, Octaviano Bolden MD, Julia Vasquez, CREOSOTING ENGINEER, Joanne Hameed, CREOSOTING ENGINEER, Jazmine Huitron, CREOSOTING ENGINEER, Tono Braun, CREOSOTING ENGINEER, Annie Quijano, DNP, Brunilda Fuller, CREOSOTING ENGINEER, Andria Rutherford, CREOSOTING ENGINEER, Akila Franks, CREOSOTING ENGINEER, Shivani Rascon, CREOSOTING ENGINEER, Mayte Martinez, CREOSOTING ENGINEER, Aliya Reyes, PA-C, Esha Kumari, METAL FINISHER, Monica Levy, DNP, Marifer Dunne, CREOSOTING ENGINEER, Rosie Longoria, CREOSOTING ENGINEER, Nohelia Morris, CREOSOTING ENGINEER [facility] IN-PATIENT SERVICE [facility] Progress Note Name: Yoli Antunez Acct: [id number] Room: [address] [place] [address] Day: 2 Admit Date: 12/31/2021 11:15 PM [...] showed no hydronephrosis. Hemodynamically stable Brief History: 70-eeww-xsw-year-old with prior history of CKD 3, hypertension, prior TIA, paroxysmal A. fib, aortic root aneurysm presented with right lower quadrant and flank pain, initially started on 12/28/2021 when he was evaluated at [facility]. Imaging suggested possible epiploic appendicitis [...] results found for: POCPH, PHART, PH, POCPCO2, MFO8IWO, PCO2, POCPO2, PO2ART, PO2, POCHCO3, BVD3CRL, HCO3, NBEA, PBEA, BEART, BE, THGBART, THB, OAU4WMJ, NLJD3XDY, V3QOYGRL, O2SAT, FIO2 Lab Results Component Value Date/Time [...] by Darline Walden MD S/p egd at [facility] 08/2020 Plan: S/p cholecystectomy day0 - [...] Islas MD - 01/02/2022 9:[address] [facility]'s Gastroenterology Progress Note Yoli Antunez is [...] results for input(s): LABIRON, TIBC, IRON, FERRITIN, MRFXQMZC62, FOLATE, OCCULTBLD in the last 72 hours. [...] Rachel Islas MD Internal medicine resident, PGY1 [place], [place] Please note that this note was generated using a voice recognition dictation software. Although every effort was made to ensure the accuracy of this automated process control manager, some errors in process control manager may have occurred. Associated attestation - Juan [...] original note were not included. Occupational Therapy [facility] Occupational Therapy Not Seen Note DATE: 01/01/2022 NAME: Yoli Antunez : 1955 Patient not seen this date for Occupational Therapy due to: Patient independent with ADLs and functional tasks with no acute OT needs. Will defer OT evaluationat this time. Please reorder OT if future needs arise. Next Scheduled Treatment: N/A * Aydee Smart RN - 01/01/2022 8:52 AM EDT Talked to [facility] cardiac and they said his loop recorder was put in November 09 and it is a [employer] device model m301 LUX-DX. MRI notified. [facility] Work Phone: 1(516) 100-264509-16-2022 Hospital course Narrative* Dariela Walker MD - 01/05/2022 2:37 PM EDT Images from the original note were not included. [facility] Office: [phone] Mehdi Mcallister DO, Meliton Willard DO, Vicente [...] George MD, Octaviano Bolden MD, Julia Vasquez, CREOSOTING ENGINEER, Joanne Hameed, CREOSOTING ENGINEER, Jazmine Huitron, CREOSOTING ENGINEER, Tono Braun, CREOSOTING ENGINEER, Annie Quijano, DNP, Brunilda Fuller, CREOSOTING ENGINEER, Andria Rutherford, CREOSOTING ENGINEER, Akila Franks, CREOSOTING ENGINEER, Shivani Rascon, CREOSOTING ENGINEER, Mayte Martinez, [facility], Aliya Reyes PA-C, Esha Kumari, [facility], Monica Levy, [facility], Marifer Dunne, [facility], Rosie Longoria, [facility], Nohelia Morris, CREOSOTING ENGINEER [facility] IN-PATIENT SERVICE [facility] Discharge Summary Patient ID: Yoli Antunez : 1955 ACCOUNT: [id number] Patient's PCP: Radha Price MD Admit Date: [...] Discharged Condition: good Hospital Stay: Hospital Course: 1-mmxn[age]nec-year-old with prior history of CKD 3, hypertension, prior TIA, paroxysmal A. fib, aortic root aneurysm presented with right lower quadrant and flank pain, initially started on 12/28/2021 when he was evaluated at [facility]. Imaging suggested possible epiploic appendicitis [...] Discharge plan: Disposition: Home Physician Follow Up: [facility] [address] [facility] [address] Schedule an appointment as soon as possible for a visit on 01/16/2022 For wound re-check post op from your Lap Ivy Campos MD [address] [facility] [address] Follow up in 1 month(s) Diet: regular [...] Your Medications These medications were sent to [address] - [phone] - F [phone] [place] [address] ciprofloxacin 500 MG tablet dilTIAZem 120 MG [...] involved in this patient'scare. [facility] [employer] Phone: [phone]) 695-461409-14-2022 Hospital Discharge instructions* Discharge Instructions* Sudheer Foote [...] be called to the nurse line at [phone] and please leave a message. * Attachments The following attachments cannot be sent through Care Everywhere. * Pancreatitis: Acute: General Info (Azerbaijani) [facility] [employer] Phone: [phone]) 596-709507-28-2022 NotePROCEDURE: XR FOOT LT MIN 3 VIEWS [...] Electronically authenticated by: DONNELL DU Date: 2021-11-16 08:26[facility]06-13-2022 Evaluation note* Encounter Date Diagnosis [...] to call the office if symptoms return [facility] Other 05-11-2022 Evaluation note* Encounter Date Diagnosis [...] - G89.29) Continue with current treatment plan [facility] 04-14-2022 Evaluation note* Encounter Date Diagnosis [...] - G89.29) Continue with current treatment plan [facility] Other 01-10-2022 History of Present illness Narrative* [...] 01, 2021 8:21 AM [place] [address]-[place]2020 History of Present illness Narrative* Dysphagia with [...] for complaint except as noted in HPI. AS-Tcxbbmwyvfjhzp-NfgyjpiChi [facility] [address] Work Phone: [phone]) [phone] History of Present illness Narrative* Dysphagia with [...] for complaint except as noted in HPI. [facility]yaiyf[facility]fqb[facility] Work Phone: 1(895) 875-273006-01-2020 History of Present illness Narrative* 67 year [...] for complaint except as noted in HPI. [facility]ac[facility]om[facility] Work Phone: 1(851) 116-436906-01-2020 History of Present illness Narrative* Dysphagia with [...] for complaint except as noted in HPI. [facility] [address] Work Phone: 1(962) 317-389101-30-2019 History and physical note Author Charlene Soria [facility] April 16, 2023 10:45amNote Date/TimeDecember 2022 10:45amJoseph [place]ille [id number] Gastroenterology H&P Signed Patient: Yoli Antunez Jr MR#: [id number] : 1955 Acct:[id number] Age/Sex: 67 / M Adm Date: 3 Loc: Room: Type: [facility] Attending Dr: Charlene Soria MD Copies [...] signed by Charlene Soria MD> 04/16/23 1045 [facility] Work Phone: Consult note* Clinical Note Date No Information [facility] Work Phone: Discharge summary* Clinical Note Date No Information [facility] Work Phone: Evaluation + Plan note Future Appointments Appointment Date:10/07/2024 01:30:00 PM Scheduled Provider: Location:[facility] Appointment Type:Surgery [facility] Evaluation noteNo Qiniu Other Evaluation note* Diagnosis Gall stone pancreatitis- [...] Metabolic acidosis Acidosis documented in this encounter [facility] Work Phone: evaluation note* Diagnosis Chronic migraine without aura, intractable, without status migrainosus- Primary Aphasia Other specified transient cerebral ischemias documented [facility]* Diagnosis Chronic migraine without aura, with intractable migraine, so stated, with status migrainosus- Primary documented in this encounter [facility]* Diagnosis Chronic migraine without aura, with intractable migraine, so stated, with status migrainosus- Primary documented [facility] this [facility]* Diagnosis Autonomic dysfunction- Primary Unspecified disorder of autonomic nervous system Dizzy spells Dizziness and giddiness documented in this encounter [facility]* Diagnosis Diarrhea, unspecified type- Primary Left lower quadrant abdominal pain documented in this encounter [facility] Work Phone: Evaluation note* Diagnosis Disturbance of skin sensation- Primary [facility] this encounter [facility]* Diagnosis Left lower quadrant abdominal pain documented in this encounter [facility] Work Phone: Evaluation note* Diagnosis Dysphagia, [...] Obstructive sleep apnea (adult) (pediatric) 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, unspecified 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 antithrombotics/antiplatelets snf (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 of aspirin Personal history of transient ischemic attack (TIA), and cerebral infarction without residual deficits Personal history of nicotine dependence Allergy status to penicillin documented in this encounter [facility] Work Phone: Evaluation note* Diagnosis Obstructive [...] joint, bilateral Personal history of nicotine dependence 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 Allergy status to penicillin Allergy status to other antibiotic agents documented in this encounter [facility] Work Phone: Evaluation noteNo assessment information available [facility] Work Phone: Evaluation note* Diagnosis Orthostatic hypotension- Primary Jennette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) documented [facility] this encounter [facility]* Diagnosis Shortness of breath documented in this encounter [facility]* Type Assessment Date No Information [facility] Work Phone: Evaluation note* Diagnosis Anxiety- Primary Anxiety state, unspecified Dermatitis Contact dermatitis and other eczema, due to unspecified cause Paroxysmal atrial fibrillation ([facility]) Atrial fibrillation [facility] Diagnosis Anxiety- Primary Anxiety state, unspecified Dermatitis Contact dermatitis and other eczema, due to unspecified cause Paroxysmal atrial fibrillation ([facility]/HCC) Atrial fibrillation 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 ([facility]) Acquired hypothyroidism ([facility]) Unspecified hypothyroidism [facility]* Diagnosis Anxiety- Primary Anxiety state, unspecified Dermatitis Contact dermatitis and other eczema, due to unspecified cause Paroxysmal atrial fibrillation ([facility]) Atrial fibrillation 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 ([facility]) Arteriosclerosis of coronary artery ([facility])- Primary Atypical angina ([facility]) Other and unspecified angina pectoris [facility]* Diagnosis Anxiety- Primary Anxiety state, unspecified Dermatitis Contact dermatitis and other eczema, due to unspecified cause Paroxysmal atrial fibrillation ([facility]) Atrial fibrillation 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 ([facility]) Dermatitis- Primary Contact dermatitis and other eczema, due to unspecified cause [facility]* Diagnosis Diarrhea, unspecified type- Primary Autonomic dysfunction Angina at rest ([facility]) Other and unspecified angina pectoris [facility]* Diagnosis Dermatitis- Primary Contact dermatitis and other eczema, due to unspecified cause Chronic kidney disease, stage 3a (HCC) ([facility]) Atherosclerosis of aorta ([facility]) Atherosclerosis of aorta Thoracic aortic ectasia ([facility]) Thoracic aortic ectasia [facility] Diagnosis Irritant contact dermatitis due to other agents- Primary documented in this [facility]* Diagnosis Anxiety- Primary Anxiety state, unspecified Dermatitis Contact dermatitis and other eczema, due to unspecified cause Paroxysmal atrial fibrillation ([facility]) Atrial fibrillation 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 ([facility]) Restless leg- Primary Restless legs syndrome (RLS) documented in [facility]* Diagnosis Anxiety- Primary Anxiety state, unspecified Dermatitis Contact dermatitis and other eczema, due to unspecified cause Paroxysmal atrial fibrillation (CMS/HCC) Atrial fibrillation Other thrombophilia (CMS/HCC) Postprocedural hypoparathyroidism (CMS/HCC) Acquired hypothyroidism ([facility]/HCC) Unspecified hypothyroidism documented in [facility] Diagnosis Anxiety- Primary Anxiety state, unspecified Dermatitis Contact dermatitis and other eczema, due to unspecified cause Paroxysmal atrial fibrillation (CMS/HCC) Atrial fibrillation Other thrombophilia (CMS/HCC) Postprocedural hypoparathyroidism ([facility]/HCC) Ptosis of both eyelids- Primary Unspecified ptosis of eyelid documented in [facility]* Diagnosis Anxiety- Primary Anxiety state, unspecified Dermatitis Contact dermatitis and other eczema, due to unspecified cause Paroxysmal atrial fibrillation (CMS/HCC) Atrial fibrillation Other thrombophilia (CMS/HCC) Postprocedural hypoparathyroidism ([facility]/HCC) Restless legs syndrome- Primary Restless legs syndrome (RLS) POTS (postural orthostatic tachycardia syndrome) Unspecified tachycardia Aneurysm of ascending aorta without rupture ([facility]) Coronary artery disease involving agdaagux heart, unspecified vessel or lesion type, unspecified whether angina present ([facility]/HCC) Paroxysmal atrial fibrillation ([facility]/HCC) Atrial fibrillation Essential hypertension ([facility]) Unspecified essential hypertension Presence of Watchman left atrial appendage closure device Transient ischemic attack Unspecified transient cerebral ischemia Gastroesophageal reflux disease without esophagitis Esophageal reflux Benign prostatic hyperplasia with urinary obstruction Stage 3a chronic kidney disease (HCC) ([facility]) 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) Vitamin D deficiency Chronic migraine without aura, with intractable migraine, so stated, with status migrainosus ([facility]/HCC) Chronic migraine without aura, with intractable migraine, so stated, with status migrainosus Meniere's disease, unspecified laterality Acquired ptosis of right eyelid Acquired hypothyroidism ([facility]/HCC) Unspecified hypothyroidism History of smoking Personal history of tobacco use, presenting hazards to health Bronchiectasis, uncomplicated (CMS/HCC) Chronic combined systolic (congestive) and diastolic (congestive) heart failure ([facility]/HCC) ADA (obstructive sleep apnea) Obstructive sleep [...] resonance disorder, unspecified [facility] Ptosis of right eyelid- Primary Unspecified ptosis of eyelid Hoarseness of voice Dysphonia [facility] Diagnosis Anxiety- Primary Anxiety state, unspecified Dermatitis Contact dermatitis and other eczema, due to unspecified cause Paroxysmal atrial fibrillation (HCC) Atrial fibrillation Other thrombophilia ([facility]HS-HCC) Postprocedural hypoparathyroidism (HCC) Muscle cramps- Primary Acquired hypothyroidism Unspecified hypothyroidism Hypocalcemia Stage 3b chronic kidney disease (CMS-HCC) documented in this encounter [facility]* Diagnosis Anxiety- Primary Anxiety state, unspecified Dermatitis Contact dermatitis and other eczema, due to unspecified cause Paroxysmal atrial fibrillation (HCC) Atrial fibrillation Other thrombophilia ([facility]HS-HCC) Postprocedural hypoparathyroidism (HCC) Acquired hypothyroidism Unspecified hypothyroidism documented in this encounter [facility]* Diagnosis Anxiety- Primary Anxiety state, unspecified Dermatitis Contact dermatitis and other eczema, due to unspecified cause Paroxysmal atrial fibrillation (HCC) Atrial fibrillation Other thrombophilia ([facility]HS-HCC) Postprocedural hypoparathyroidism (HCC) Dizziness- Primary Dizziness and giddiness Pain in both lower extremities Acquired hypothyroidism Unspecified hypothyroidism documented in this encounter [facility] HealthcareHistory and physical note* Clinical Note Date No Information [facility] [employer] Work Phone: History general Narrative - Reported* [...] laminectomy Surgical HistoryEGD2 years agoSurgical HistoryReattach left vpehey00/2018 Surgical HistoryHeart Cath05/02/18Surgical HistoryTotal Substernal Thyroidectomy 09/24/2018Surgical HistoryEGD with sljnaximsb55/19Surgical Historyleft ureteral stent guaviurjx03/19Surgical Historysteel removed from left eye04/23/2019 Hospitalization Historysee aboveHospitalization Historycardiac DailyStrength Other History of Present illness Narrative* Patient [...] any concerns. Rehab Services-[facility] [address] [place] Work Phone: History of Present illness Narrative* Mr. ANTUNEZ , 1955, referred for an initial consultation with me but established with this practice, with a long history of waking up feeling unrefreshed, excessive daytime fatigue. * Jasper Sleepiness Scale Score is 16 /24. Fatigue [...] / 20 * Nasal Obstruction VAS- 0/10 CD-Rnzzyxyttcfnjl-Xcyqm MAC1 302 Work Phone: Hospital course Narrative No data available for this section [facility] Hospital Discharge instructions Additional Instructions DISCHARGE [...] -Follow up pathology -Follow up in the [facility] Work Phone: Hospital Discharge instructions No data available for this section [facility] Instructions* Date Instruction Additional Infor mation No Information [facility] Work Phone: Progress note* Clinical Note Date No Information [facility] Work Phone: Progress note No data available for this section [facility] Reason for referral (narrative)* Reason For Referral No Information [facility] Work Phone: Rejzrw for referral (narrative)* Consultation (Routine) - AuthorizedSpecialtyDiagnoses / ProceduresReferred By Contact Referred To ContactGastroenterology Diagnoses Diarrhea, unspecified type Procedures CO OFFICE/OUTPATIENT [facility] 60 MINUTES Radha Burris MD [address] [place] [address] Michelle Gilmore MD [address] [place] [address] Referral IDStatusReasonStart DateExpiration DateVisits RequestedVisits [id number] Specialty Services Required 1 [facility] HealthcareReason for referral (narrative)No reason for referral information availableShel[facility] Work Phone: Reason for visit Narrative* Consultation (Routine) - ClosedSpecialtyDiagnoses / ProceduresReferred By ContactReferred To Contact Neurology Diagnoses Acquired ptosis of right eyelid Procedures CO OFFICE/OUTPATIENT [facility] MDM 60 MINUTES Eleonora Leo NP [address] [place] [address] Phone: tel: fax: Ranjana Mack DO [address] [place] [address] Phone: tel: fax: Referral IDStatusReasonStart DateExpiration DateVisits RequestedVisits [id number] Consult and Treat / [facility] Healthcare Summary Purpose Family History No Family [...] CHEST Cameron Harmon MD [address] [place] [id number] Imaging [place] [address] Referral IDStatusReasonStart DateExpiration DateVisits RequestedVisits [id number] Auto-Generated Referral /[id number] / ProceduresReferred By ContactReferred To ContactRadiology Diagnoses Left lower quadrant abdominal pain Procedures CT abdomen pelvis w IV contrast Yossi Chen MD [address] [facility] [address] [place] [address] Referral IDStatusReasonFalkville DateExpiration DateVisits RequestedVisits [id number] Perform Procedure /[id number] / ProceduresReferred By ContactReferred To ContactNeurology Diagnoses Autonomic dysfunction Dizzy spells Procedures CONSULT TO NEUROLOGY OFFICE/OUTPATIENT [facility] 60-74 MINUTES Kassie Richardson, POWERHOUSE MECHANIC HELPER.CREOSOTING ENGINEER [address] [facility] [place] [address] Referral IDStatusReasonSthood river DateExpiration DateVisits RequestedVisits [id number] PCP Requested Referral /[id number] / ProceduresReferred By ContactReferred To ContactMR IMAGING Diagnoses Chronic migraine without aura, intractable, without status migrainosus Aphasia Other specified transient cerebral ischemias Procedures MRV BRAIN WO IVCON MRA, HEAD W/O CONTRAST Kassie Richardson BRENNA.CREOSOTING ENGINEER [address] [place] [address] Mr Imaging Referral [facility]Status[facility] DateExpiration DateVisits RequestedVisits [id number] Review Auto-Generated Referral /[id number] / ProceduresReferred By ContactReferred To ContactMR IMAGING Diagnoses Chronic migraine without aura, intractable, without status migrainosus Aphasia Other specified transient cerebral ischemias Procedures MRA BRAIN WO IVCON MRA, HEAD W/O CONTRAST Kassie Richardson, POWERHOUSE MECHANIC HELPER.CREOSOTING ENGINEER [address] [place] [address] Mr Imaging Ref[facility]Status[facility] DateExpiration DateVisits RequestedVisits [id number] Review Auto-Generated Referral Medications Administered Section Medication [...] 1330,EXP: Administer with 0.2 micron filter. New Bag/Syringe/Kgzeuw4607/26/2022 1:37 PM SEX130 mg200 mL/hrMedication OrderMAR ActionAction DateDoseRateSite eptinezumab-jjmr 100 mg in NaCl 0.9% 100 mL (VYEPTI) 100 mg, INTRAVENOUS, at 200 mL/hr, Administer over 30 Minutes, ONCE, 1 dose, On Sis 10/18/22 at 1400, EXP: Administer with 0.2 micron filter. New Bag/Syringe/Vrvsbm8810/18/2022 2:02 PM PIF731 mg200 mL/hr Chief Complaint SwallowSwallowSwallowFollow up visit [...] section and content) DATE CREATED AUTHOR 05/02/2018 [facility] DATE CREATED AUTHOR AUTHOR'S ORGANIZ ATION 03/12/2020 [facility] DATE CREATED AUTHOR AUTHOR'S ORGANIZ ATION 05/25/2021 [facility] [employer] [facility] DATE CREATED AUTHOR AUTHOR'S ORGANIZ ATION 12/23/2021 [facility] DATE CREATED AUTHOR AUTHOR'S ORGANIZ ATION 01/17/2022 [facility] DATE CREATED AUTHOR AUTHOR'S ORGANIZ ATION 04/18/2022 [facility] Application Development Team Lead DATE CREATED AUTHOR AUTHOR'S ORGANIZ ATION 06/07/2022 [facility] DATE CREATED AUTHOR AUTHOR'S ORGANIZ ATION 08/28/2022 [facility] DATE CREATED AUTHOR AUTHOR'S ORGANIZ ATION 10/26/2022 [facility] DATE CREATED AUTHOR AUTHOR'S ORGANIZ ATION 12/14/2022 [facility] DATE CREATED AUTHOR AUTHOR'S ORGANIZ ATION 12/14/2022 [facility] DATE CREATED AUTHOR AUTHOR'S ORGANIZ ATION 12/18/2022 [facility] DATE CREATED AUTHOR AUTHOR'S ORGANIZ ATION 02/02/2023 [facility] DATE CREATED AUTHOR AUTHOR'S ORGANIZ ATION 02/06/2023 [facility] DATE CREATED AUTHOR AUTHOR'S ORGANIZ ATION 12/28/2023 [facility] DATE CREATED AUTHOR AUTHOR'S ORGANIZ ATION 03/05/2024 [facility] DATE CREATED AUTHOR AUTHOR'S ORGANIZ ATION 08/06/2024 [facility] DATE CREATED AUTHOR AUTHOR'S ORGANIZ ATION 09/27/2024 [facility] DATE CREATED AUTHOR AUTHOR'S ORGANIZ ATION 10/10/2024 [facility] DATE CREATED AUTHOR AUTHOR'S ORGANIZ ATION 10/23/2024 [facility] DATE CREATED AUTHOR AUTHOR'S ORGANIZ ATION 01/15/2025 [facility] DATE CREATED AUTHOR AUTHOR'S ORGANIZ ATION 02/04/2025 [facility] DATE CREATED AUTHOR AUTHOR'S ORGANIZ ATION 02/12/2025 [facility] DATE CREATED AUTHOR AUTHOR'S ORGANIZ ATION 02/25/2025 [facility] Reason for Visit (unrecogniz ed section and content) ReasonCommentsInfusionHeadacheSpecialtyDiagnoses / ProceduresReferred By Contact Referred To Contact Diagnoses Chronic migraine without aura, with intractable migraine, so stated, with status migrainosus Kassie Richardson, POWERHOUSE MECHANIC HELPER.CREOSOTING ENGINEER [address] [place] [address] Neur Headache [address] [place] [address] Referral IDStatusReasonStart DateExpiration DateVisits RequestedVisits [id number]/9/20235/[id number]wbrlbl / ProceduresReferred By ContactReferred To ContactPending ReviewInfusion Therapy Diagnoses Migraine, unspecified, intractable, without status migrainosus Procedures CO INJ MAGNESIUM SULFATE CO LIDOCAINE INJECTION CO DEXAMETHASONE SODIUM PHOS CO DRUGS UNCLASSIFIED INJECTION Mayelin Wolff MD [address] [place] [address] [facility] [address] [place] [address] ReasonCommentsHeadacheReasonCommentsReceived Outside Medical RecordsUHReason CommentsResultsThe [facility] CenterReasonCommentsFollow-upDiarrheaSince hiatal hernia surgery.ReasonCommentsResultsGilmanton HospitalSpecialtyDiagnoses / ProceduresReferred By ContactReferred To ContactRadiology Diagnoses Left lower quadrant abdominal pain Procedures CT abdomen pelvis w IV contrast Yossi Chen MD [address] [facility] [address] [place] [address] Referral IDStatusReasonStart DateExpiration DateVisits RequestedVisits [id number] Perform Procedure /[id number]Z - Emailed prep on [id number] CommentsOtherDRUG INDUCED SLEEP ENDOSCOPYReasonCommentsFollow UpReasonComments Radiology CTSpecialtyDiagnoses / ProceduresReferred By ContactReferred To ContactCT IMAGING Diagnoses Shortness of breath Procedures CT CHEST WO IVCON CAT SCAN OF CHEST Cameron Harmon MD [address] [place] [address] [address] [place] [address] Referral IDStatusReasonSthood river DateExpiration DateVisits RequestedVisits [id number] Auto-Generated Referral /[id number]-ajLdzr on both legs the past couple months. Rash has stayed the same. [facility] patient went in for chest pain due to afib but chest pain has stopped since then.ReasonOnset DateCommentsMed Abwszb814ReasonCommentsEstablish CareReasonCommentsRashBehind both legs, for the past 3-4 weeks. Was using calamine lotion. Notices when he is scratching it will spread.ReasonCommentsRashReasonOnset DateCommentsMed Uqsnni7905/18/2024 ReasonCommentsMedicare Annual Wellness Visit SubsequentReasonCommentsThyroid ProblemPARATHYROID NEW REF/LABSpecialtyDiagnoses / ProceduresReferred By Contact Referred To ContactEndocrinology Diagnoses Low serum parathyroid hormone (PTH) Procedures CO OFFICE/OUTPATIENT NEW HIGH MDM 60 MINUTES Eleonora Leo NP [address] [place] [address] Phone: tel: fax: Latoya Redding MD [address] [place] [address] Phone: tel: fax: Referral IDStatusReasonStart DateExpiration DateVisits RequestedVisits [id number] Review Specialty Services Required [id number]-pkJHH LABReasonCommentsWeakness, Gen ReasonCommentsDental InjuryPatient had tooth removed two weeks ago Saturday at [facility] for tooth removal but the root traveled to sinus. Sx of right ear pain, and thick yellow mucus that started the next day. Has been taking ibuprofen 600mg 3-4 times daily. [facility] sent a couple of referrals to ENT, one called back but can not get him in till another week.ReasonCommentsURIReason CommentsSinusitisNew Patient : sinusitis / CT doneSpecialtyDiagnoses / ProceduresReferred By ContactReferred To ContactOtolaryngology Diagnoses Acute non-recurrent maxillary sinusitis Abnormal CT scan, sinus Procedures CO OFFICE/OUTPATIENT NEW HIGH MDM 60 MINUTES Radha Burris MD [address] [place] [address] Phone: tel: fax: Lalito Miller DO [address] [place] [address] Phone: tel: fax: Referral IDStatusReasonStart DateExpiration DateVisits RequestedVisits [id number] Specialty Services Required /[id number] week reckReasonCommentsPost-op ReasonCommentsPost-op2 week reckReasonCommentsEstablished PatientFollow UpReason [...] Team MemberRelationshipSpecialtyStart DateEnd Date Radha Price MD [address] [place] [address] [phone] PCP - GeneralFamily Medicine10/01/17Team MemberRelationshipSpecialtyStart DateEnd Date Radha Burris MD [address] [place] [address] PCP - GeneralInternal Medicine01/14/20 Esther Grey, DO [address] [facility] [address] [place], [place] [id number] JhqctwqwjGdbhepbuumyryupiz94/6/20Team MemberRelationshipSpecialtyStart DateEnd Date Radha Burris [address] [place] [address] PCP - GeneralFamily Medicine10/09/17 Elian Ceballos MD [address] [facility] [place] [address] Primary Staff PhysicianCardiology12/01/20 Herminia Roland MD [address] [facility] [place] [address] Primary Staff HhmygfqsmQdrdslawuu08/13/21Team MemberRelationshipSpecialtyStart DateEnd Date Radha Burris [address] [place] [address] PCP - GeneralFamily Medicine10/09/17 Elian Ceballos MD [address] [facility] [place] [address] Primary Staff PhysicianCardiology12/01/20 Herminia Roland MD [address] [place] [address] Primary Staff ZsqcvdaexPazhlddryg70/13/21Team MemberRelationshipSpecialtyStart DateEnd Date Radha Burris [address] [place] [address] PCP - Generalmily Medicine10/09/17 Elian Ceballos MD [address] [facility] [place] [address] Primary Staff PhysicianCardiology12/01/20 Herminia Roland MD [address] [facility] [place] [address] Primary Staff VwaaepstdHbifwtwzpx57/13/21Team MemberRelationshipSpecialtyStart DateEnd Date Radha Burris [address] [place] [place] [address] PCP - GeneralFamily Medicine10/09/17 Elian Ceballos MD [address] [place] [address] Primary Staff PhysicianCardiology12/01/20 Herminia Roland MD [address] [facility] [place] [address] Primary Staff HrebtgfomSgwdwmoogc43/13/21Team MemberRelationshipSpecialtyStart DateEnd Date Radha Burris [address] [place] [place] [address] PCP - GeneralFamily Medicine10/09/17 Elian Ceballos MD [address] [facility] [place] [address] Primary Staff PhysicianCardiology12/01/20 Herminia Roland MD [address] [place] [address] Primary Staff TuxrjduyeZktofcykzc90/13/21Te MemberRelationshipSpecialtyStart DateEnd Date Radha Burris [address] [place] [place] [address] PCP - GeneralFamily Medicine10/09/17 Elian Ceballos MD [address] [place] [address] Primary Staff PhysicianCardiology12/01/20 Herminia Roland MD [address] [place] [address] Primary Staff RgisombwcQbzaiybhur54/13/21Team MemberRelationshipSpecialtyStart DateEnd Date Radha Burris [address] [place] [address] PCP - GeneralFamily Medicine10/09/17 Elian Ceballos MD [address] [place] [address] Primary Staff PhysicianCardiology12/01/20 Herminia Roland MD [address] [place] [address] Primary Staff BhsaoioiwNcazatolnt24/13/21Team MemberRelationshipSpecialtyStart DateEnd Date Radha Burris [address] [place] [address] PCP - GeneralFamily Medicine10/09/17 Elian Ceballos MD [address] [place], [place] [id number] Primary Staff PhysicianCardiology12/01/20 Herminia Roland MD [address] [place] [address] Primary Staff GaoqqwrtyWaydebtapk26/13/21Team MemberRelationshipSpecialtyStart DateEnd Date Radha Burris [address] [place] [address] PCP - GeneralFamily Medicine10/09/17 Elian Ceballos MD [address] [place], [place] [address] Primary Staff PhysicianCardiology12/01/20 Herminia Roland MD [address] [place] [address] Primary Staff RdjvxrujwVgsurknhkq76/13/21Team MemberRelationshipSpecialtyStart DateEnd Date Radha Burris [address] [place] [address] PCP - GeneralFamily Medicine10/09/17 Elian Ceballos MD [address] [place] [address] Primary Staff PhysicianCardiology12/01/20 Herminia Roland MD [address] [place] [address] Primary Staff RaajlcbosTpznlqvxuo53/13/21Team MemberRelationshipSpecialtyStart DateEnd Date Radha Burris [address] [place] [address] PCP - GeneralHawarden Regional Healthcarely Medicine10/09/17 Elian Ceballos MD [address] [place] [address] Primary Staff PhysicianCardiology12/01/20 Herminia Roland MD [address] [place], [place] [address] Primary Staff VoqvojjxtRtvubhmqzt70/13/21Team MemberRelationshipSpecialtyStart DateEnd Date Radha Burris MD [address] [address] PCP - Dwhieem32/1/20Team MemberRelationshipSpecialtyStart DateH. C. [facility] Radha Burris [address] [place] [phone] PCP - GeneralFagoddard memorial hospital Medicine10/09/17 Elian Ceballos MD [address] [place] [address] Primary Staff PhysicianCardiology12/01/20 Herminia Roland MD [address] [place] [address] Primary Staff GqumshxhmCwdkxzfaaa89/13/21Team MemberRelationshipSpecialtyStart DateH. C. [facility] Radha Burris [address] [place] [place] [address] PCP - [facility] Medicine10/09/17 Elian Ceballos MD [address] [place] [address] Primary Staff PhysicianCardiology12/01/20 Herminia Roland MD [address] [place] [address] Primary Staff IqibqsodlSrkvdlfedg76/13/21Team MemberRelationshipSpecialtyStart End Date Radha Burris MD [address] [place] [address] PCP - Xpzzykj57/1/20Team MemberRelationshipSpecialtyStart DateEnd Date Radha Burris MD [address] [place] [address] PCP - Tfgzsmo80/1/20Team MemberRelationshipSpecialtyStart DateEnd Date Radha Burris MD [address] [place] [phone] PCP - Qyrhnyf54/1/20 Team Status: Active Member Role Status Dates Radha Burris MD Primary Care Provide r Active Team Status: Inactive Member Role Status Dates Radha Burris MD Primary Care Provide r Active Imad Asaad , MDAttending ProviderActiveTeam MemberRelationshipSpecialtyStart DateEnd Date Radha Burris MD [address] [place] [address] PCP - GeneralInternal Medicine01/14/20 Esther Grey DO [address] [place] [address] [place] [address] WbkqauoyqLkqsfetuzstjozpdu83/6/20Team MemberRelationshipSpecialtyStart DateEnd Date Radha Burris [address] [place], [place] [id number] PCP - GeneralFamily Medicine10/09/17 Elian Ceballos MD [address] [place] [address] Primary Staff PhysicianCardiology12/01/20 Herminia Roland MD [address] [place] [address] Primary Staff IkyveecnpCavifuuyjt71/13/21Team MemberRelationshipSpecialtyStart DateEnd Date Radha Burris MD [address] [place] [address] PCP - [facility]09/13/22 Radha Burris MD [address] [place] [address] PCP - GeneralFamily Medicine09/20/22 Team Status: Inactive [...] 2023Team MemberRelationshipSpecialtyStart DateEnd Radha Burris MD [address] [place] [address] PCP - GeneralInternal Medicine01/14/20 Esther Grey DO [address] [facility] [place] [address] YsgwfucirDbgvqyzgxcfbgceji44/6/20 Name Effective Dates (start - stop) Status Members No Information Team MemberRelationshipSpecialtyStart DateEnd Date Radha Burris MD [address] [place] [address] PCP - [facility]09/13/22 Radha Burris MD [address] [place] [address] [facility] - [facility]/20/22Te MemberRelationshipSpecialtyStart DateEnd Radha Burris MD [address] [place] [address] PCP - [facility]09/13/22 Radha Burris MD [address] [place] [address] PCP - [facility]09/20/22Te MemberRelationshipSpecialtyStart DateEnd Radha Burris MD [address] [place] [address] PCP - [facility]09/13/22 Radha Burris MD [address] [place] [address] PCP - [facility]09/20/22Te MemberRelationshipSpecialtyStart End Radha Burris MD [address] [place] [address] PCP - [facility]09/13/22 Radha Burris MD [address] [place] [address] PCP - [facility]09/20/22Team MemberRelationshipSpecialtyStart DateEnd Date Radha Burris MD [address] [place] [address] PCP - [facility]09/13/22 Radha Burris MD [address] [place] [address] PCP - [facility]09/20/22Te MemberRelationshipSpecialtyStart DateEnd Date Radha Burris MD [address] [place] [address] PCP - [facility]09/13/22 Radha Burris MD [address] [place] [address] [facility] - [facility]09/20/22Te MemberRelationshipSpecialtyStart DateEnd Date Radha Burris MD [address] [place] [address] PCP - [facility]09/13/22 Radha Burris MD [address] [place] [address] [facility] - [facility]09/20/22Te MemberRelationshipSpecialtyStart DateEnd Date Radha Burris MD [address] [place] [address] PCP - [facility]09/13/22 Radha Burris MD [address] [place] [address] PCP - GeneralFamily Medicine09/20/22Team MemberRelationshipSpecialtyStart DateEnd Date Radha Burris MD [address] [place] [address] PCP - [facility]09/13/22 Radha Burris MD [address] [place] [address] PCP - Generalmily Medicine09/20/22Team MemberRelationshipSpecialtyStart DateEnd Date Radha Burris MD [address] [place] [address] PCP - [facility]09/13/22 Rdaha Burris MD [address] [place] [address] PCP - Generalmi Medicine09/20/22Te MemberRelationshipSpecialtyStart DateEnd Date Radha Burris MD [address] [place] [address] PCP - [facility]09/13/22 Radha Burris MD [address] [place] [address] [facility]/20/22Team MemberRelationshipSpecialtyStart DateEnd Date Radha Burris MD [address] [place] [address] PCP - [facility]09/13/22 Radha Burris MD [address] [place] [address] PCP - GeneralFamily Medicine09/20/22Team MemberRelationshipSpecialtyStart DateEnd Date Radha Burris MD [address] [place] [address] PCP - [facility]09/13/22 Radha Burris MD [address] [place] [address] PCP - Generalmily Medicine09/20/22Team MemberRelationshipSpecialtyStart DateEnd Radha Burris MD [address] [place] [address] PCP - Generalmily Medicine09/20/22Te MemberRelationshipSpecialtyStart DateEnd Date Radha Burris MD [address] [place] [address] PCP - GeneralFamily Medicine09/20/22 Radha Burris MD [address] [place] [address] PCP - [facility]06/05/24Te MemberRelationshipSpecialtyStart DateEnd Date Radha Burris MD [address] [place] [address] PCP - GeneralFainly Medicine09/20/22 Radha Burris MD [address] [place] [address] PCP - [facility]06/05/24Team MemberRelationshipSpecialtyStart DateEnd Date Radha Burris MD [address] [place] [address] [facility]09/20/22 Radha Burris MD [address] [place] [address] PCP - [facility]06/05/24Team MemberRelationshipSpecialtyStart DateEnd Date Radha Burris MD [address] [place] [address] PCP - [facility] Medicine09/20/22 Radha Burris MD [address] [place] [address] PCP - [facility]06/05/24 Shashi Pina DO [address] [place] [address] Referring PhysicianNeurology06/22/24Team MemberRelationshipSpecialtyStart DateEnd Date Radha Burris MD [address] [place] [address] PCP - [facility] Medicine09/20/22 Radha Burris MD [address] [place] [address] PCP - [facility]06/05/24 Shashi Pina DO [address] [place] [address] Referring PhysicianNeurology06/22/24Team MemberRelationshipSpecialtyStart DateEnd Date Radha Burris MD [address] [place] [address] PCP - GeneralFamily Medicine09/20/22 Radha Burris MD [address] [place] [address] PCP - [facility]06/05/24 Shashi Pina DO [address] [place] [address] Referring PhysicianNeurology06/22/24Team MemberRelationshipSpecialtyStart DateEnd Date Radha Burris MD [address] [place] [address] PCP - GeneralFamily Medicine09/20/22 Shashi Pina DO [address] [place] [address] Referring PhysicianNeurology06/22/24Team MemberRelationshipSpecialtyStart DateEnd Date Radha Burris MD [address] [place] [address] PCP - GeneralFamily Medicine09/20/22 Shashi Pina DO [address] [place] [address] Referring PhysicianNeurology06/22/24Team MemberRelationshipSpecialtyStart DateEnd Date Radha Burris MD [address] [place] [address] PCP - GeneralFamily Medicine09/20/22 Shashi Pina DO [address] [address] Referring PhysicianNeurology06/22/24Team MemberRelationshipSpecialtyStart DateEnd Date Radha Burris MD [address] [place] [address] PCP - GeneralFamily Medicine09/20/22 Shashi Pina DO [address] [address] Referring PhysicianNeurology06/22/24Team MemberRelationshipSpecialtyStart DateEnd Date Radha Burris MD [address] [facility] [place] [address] PCP - GeneralFamily Medicine09/20/22 Shashi Pina DO [address] [address] Referring PhysicianNeurology06/22/24Team MemberRelationshipSpecialtyStart DateEnd Date Radha Burris MD [address] [place] [address] PCP - GeneralFamily Medicine09/20/22 Shashi Pina DO [address] [address] Referring PhysicianNeurology06/22/24Team MemberRelationshipSpecialtyStart DateEnd Date Radha Burris MD [address] [place] [address] PCP - GeneralFamily Medicine09/20/22 Shashi Pina DO [address] [address] Referring PhysicianNeurology06/22/24Team MemberRelationshipSpecialtyStart DateEnd Date Radha Burris MD [address] [place] [address] PCP - GeneralFainly Medicine09/20/22 Shashi Pina DO [address] [address] Referring PhysicianNeurology06/22/24Team MemberRelationshipSpecialtyStart DateEnd Date Radha Burris MD [address] [place] [address] PCP - GeneralFamily Medicine09/20/22 Shashi Pina DO [address] [address] Referring PhysicianNeurology06/22/24Team MemberRelationshipSpecialtyStart DateEnd Date Radha Burris MD [address] [place] [address] PCP - GeneralFamily Medicine09/20/22 Shashi Pina DO [address] [place] [address] Referring PhysicianNeurology06/22/24Team MemberRelationshipSpecialtyStart DateEnd Date Radha Burris MD [address] [facility] [place] [address] PCP - GeneralFamily Medicine09/20/22 Shashi Pina DO [address] [facility] [place] [address] Referring PhysicianNeurology06/22/24Team MemberRelationshipSpecialtyStart DateEnd Date Radha Burris MD [address] [facility] [place] [address] PCP - GeneralFamily Medicine09/20/22 Shashi Pina DO [address] [place] [phone] Referring PhysicianNeurology06/22/24Team MemberRelationshipSpecialtyStart DateEnd Radha Burris MD [address] [facility] [place] [address] PCP - Generalmily Medicine09/20/22 Shashi Pina DO [address] [address] Referring PhysicianNeurology06/22/24Team MemberRelationshipSpecialtyStart DateEnd Date Radha Burris MD [address] [facility] [place], [place] [address] PCP - GeneralFamily Medicine09/20/22 Shashi Pina DO [address] [address] Referring PhysicianNeurology06/22/24Team MemberRelationshipSpecialtyStart DateEnd Date Radha Burris MD [address] [place], [place] [address] PCP - GeneralFamily Medicine09/20/22 Shashi Pina DO [address] [facility] [address] [place] [address] Referring PhysicianNeurology06/22/24Team MemberRelationshipSpecialtyStart End Radha Burris [address] [place] [id number] PCP - GeneralFamily Medicine10/09/17 Elian Ceballos MD [address] [place] [address] Primary Staff PhysicianCardiology12/01/20 Herminia Roland MD [address] [place] [address] Primary Staff OqczlosjjCuuwxqpnxa20/13/21Team MemberRelationshipSpecialtyStart DateEnd Date Radha Burris MD [address] [place] [phone] PCP - GeneralFamily Medicine10/09/17 Elian Ceballos MD [address] [place] [address] Primary Staff PhysicianCardiology12/01/20 Herminia Roland MD [address] [place] [address] Primary Staff OcznmufeiCzjrtokscv17/13/21Team MemberRelationshipSpecialtyStart End Radha Burris MD [address] [place] [address] PCP - GeneralFamily Medicine10/09/17 Elian Ceballos MD [address] [place] [address] Primary Staff PhysicianCardiology12/01/20 Herminia Roland MD [address] [place] [address] Primary Staff WkrihgdlvBxjbrhuokt89/13/21Team MemberRelationshipSpecialtyStart End Radha Burris MD [address] [place], [place] [address] PCP - GeneralFamily Medicine09/20/22 Shashi Pina DO [address] [place] [address] Referring PhysicianNeurology06/22/24Team MemberRelationshipSpecialtyStart End Radha Burris MD [address] [place] [address] PCP - GeneralFamily Medicine10/09/17 Elian Ceballos MD [address] [facility] [place] [address] Primary Staff PhysicianCardiology12/01/20 Herminia Roland MD [address] [place] [address] Primary Staff PdtmpiiaaDtvbjafskg01/13/21Team MemberRelationshipSpecialtyStart DateEnd Date Radha Burris MD [address] [place] [address] PCP - GeneralFamily Medicine09/20/22 Shashi Pina DO [address] [place], [place] [address] Referring PhysicianNeurology06/22/24Team MemberRelationshipSpecialtyStart DateEnd Date Radha Burris MD [address] [place] [address] [facility]09/20/22 Shashi Pina DO [address] [place] [phone] Referring PhysicianNeurology06/22/24Team MemberRelationshipSpecialtyStart DateEnd Date Radha Burris MD [address] [place] [address] [facility] - [facility]09/20/22 Shashi Pina DO [address] [place] [phone] Referring PhysicianNeurology06/22/24 Team Status: Inactive Member Role Status Dates Radha Burris MD Primary Care Provider Active Start: January End: January 29, 2025Umar Nathaniel , MDAttending ProviderActiveStart: January 29, 2025 End: January 29, 2025Team MemberRelationshipSpecialtyStart DateEnd Date Radha Burris MD [address] [place] [address] PCP - [facility]09/13/ Radha Burris MD [address] [place] [address] PCP - GeneralFamily Medicine09/20/22 Radha Burris MD [address] [place] [address] PCP - [facility] Shashi Pina DO [address] [place] [address] Referring PhysicianNeurology06/22/24Team MemberRelationshipSpecialtyStart DateEnd Date Radha Burris MD [address] [place] [address] PCP - [facility]09/13/ Radha Burris MD [address] [place] [address] [facility] - [facility]09/20/22 Radha Burris MD [address] [place] [address] PCP - [facility] Shashi Pina DO [address] [place] [address] Referring PhysicianNeurology06/22/24Team MemberRelationshipSpecialtyStart DateEnd Radha Burris MD [address] [place] [address] PCP - GeneralInternal Medicine01/14/20 Esther Grey DO [address] [place] [address] [place] [address] RwkzkqrthAajyoohfgnmmfemlw81/6/20 Source Comments (unrecognize d section and content) In the event this informatio n is protected by the Federal Confidentiality of Alcohol and Drug Abuse Patient Records regulations: The Federal rules restrict any use of the information to criminally investigate or prosecute any alcohol or drug abuse patient.[facility] HospitalIn the event this information is protected by the Federal Confidentiality of Alcohol and Drug Abuse Patient Records regulations: The Federal rules restrict any use of the information to criminally investigate or prosecute any alcohol or drug abuse patient.[facility] HospitalIn the event this information is protected by the Federal Confidentiality of Alcohol and Drug Abuse Patient Records regulations: The Federal rules restrict any use of the information to criminally investigate or prosecute any alcohol or drug abuse patient.[facility] HospitalIn the event this information is protected by the Federal Confidentiality of Alcohol and Drug Abuse Patient Records regulations: The Federal rules restrict any use of the information to criminally investigate or prosecute any alcohol or drug abuse patient.[facility] HospitalIn the event this information is protected by the Federal Confidentiality of Alcohol and Drug Abuse Patient Records regulations: The Federal rules restrict any use of the information to criminally investigate or prosecute any alcohol or drug abuse patient.[facility] HospitalIn the event this information is protected by the Federal Confidentiality of Alcohol and Drug Abuse Patient Records regulations: The Federal rules restrict any use of the information to criminally investigate or prosecute any alcohol or drug abuse patient.[facility] HospitalIn the event this information is protected by the Federal Confidentiality of Alcohol and Drug Abuse Patient Records regulations: The Federal rules restrict any use of the information to criminally investigate or prosecute any alcohol or drug abuse patient.[facility] HospitalIn the event this information is protected by the Federal Confidentiality of Alcohol and Drug Abuse Patient Records regulations: The Federal rules restrict any use of the information to criminally investigate or prosecute any alcohol or drug abuse patient.[facility] HospitalIn the event this information is protected by the Federal Confidentiality of Alcohol and Drug Abuse Patient Records regulations: The Federal rules restrict any use of the information to criminally investigate or prosecute any alcohol or drug abuse patient.[facility] HospitalIn the event this information is protected by the Federal Confidentiality of Alcohol and Drug Abuse Patient Records regulations: The Federal rules restrict any use of the information to criminally investigate or prosecute any alcohol or drug abuse patient.[facility] HospitalIn the event this information is protected by the Federal Confidentiality of Alcohol and Drug Abuse Patient Records regulations: The Federal rules restrict any use of the information to criminally investigate or prosecute any alcohol or drug abuse patient.[facility] HospitalIn the event this information is protected by the Federal Confidentiality of Alcohol and Drug Abuse Patient Records regulations: The Federal rules restrict any use of the information to criminally investigate or prosecute any alcohol or drug abuse patient.[facility] HospitalIn the event this information is protected by the Federal Confidentiality of Alcohol and Drug Abuse Patient Records regulations: The Federal rules restrict any use of the information to criminally investigate or prosecute any alcohol or drug abuse patient.[facility] HospitalIn the event this information is protected by the Federal Confidentiality of Alcohol and Drug Abuse Patient Records regulations: The Federal rules restrict any use of the information to criminally investigate or prosecute any alcohol or drug abuse patient.[facility] HospitalIn the event this information is protected by the Federal Confidentiality of Alcohol and Drug Abuse Patient Records regulations: The Federal rules restrict any use of the information to criminally investigate or prosecute any alcohol or drug abuse patient.[facility] HospitalIn the event this information is protected by the Federal Confidentiality of Alcohol and Drug Abuse Patient Records regulations: The Federal rules restrict any use of the information to criminally investigate or prosecute any alcohol or drug abuse patient.[facility] HospitalIn the event this information is protected by the Federal Confidentiality of Alcohol and Drug Abuse Patient Records regulations: The Federal rules restrict any use of the information to criminally investigate or prosecute any alcohol or drug abuse patient.[facility] HospitalIn the event this information is protected by the Federal Confidentiality of Alcohol and Drug Abuse Patient Records regulations: The Federal rules restrict any use of the information to criminally investigate or prosecute any alcohol or drug abuse patient.[facility] HospitalIn the event this information is protected by the Federal Confidentiality of Alcohol and Drug Abuse Patient Records regulations: The Federal rules restrict any use of the information to criminally investigate or prosecute any alcohol or drug abuse patient.[facility] HospitalIn the event this information is protected by the Federal Confidentiality of Alcohol and Drug Abuse Patient Records regulations: The Federal rules restrict any use of the information to criminally investigate or prosecute any alcohol or drug abuse patient.[facility] HospitalIn the event this information is protected by the Federal Confidentiality of Alcohol and Drug Abuse Patient Records regulations: The Federal rules restrict any use of the information to criminally investigate or prosecute any alcohol or drug abuse patient.[facility] Goals (unrecognized section and content) Goals [...] BE BASED ON THE PRIMARY CLINICAL RECORDS. [facility]. provides no warranty or guarantee of the accuracy or completeness of information in this document.
--- OUTSIDE RECORDS SUMMARY | 2025-03-25 07:07 | XMS_ITS | Patient Health Record ---
Author Organization [facility] [place] Address [address] [place] [address] Care Team Providers Care Wind Field Manager Name Role Phone Aman VAZQUEZ, Radha Primary Care Provider Roro Rosas Allergies Allergen (clinical drug ingredient) Drug/Non Drug Allergy documented on EMR Reaction Allergy Type Onset Date Status dofetilide Tikosyn rash Drug Allergy ActivePenicillinUnknownDrug AllergyActivevancomycinVancomycinrashDrug Allergy Active Reason For Referral No Information Medications Medication SIG (Take, Route, Frequency, Duration) Notes Start Date End Date Status PROzac 20 MG 1 capsule Orally Once a day ActiveCholestyramine 4 GM1 packet mixed with water or non-carbonated drink Orally Once a day; Duration: 30 day(s)02/17/2024ctiveSotalol HCl 80 MG1 tablet Orally every 12 [...] W/U Status Risk Notes Problem Atrial fibrillation (88315826) Unspecifie d atrial fibrillation (I48.91) ActiveconfirmedProblemNon-infective enteritis and colitis (566329517) Noninfective gastroenteritis and colitis, unspecified (K52.9)Activeconfirmed colonoscopy [...] lymphocytic colitis.ProblemHistory of excision of intestinal structure (845889018)Acquired absence of other specified parts of digestive tract (Z90.49) ActiveconfirmedProblemHypothyroid (35406568)Hypothyroid (E03.9)Activeconfirmed ProblemHistory of polyp of colon (situation) (582513185)Personal history of colon polyps, unspecified (Z86.0100)Activeconfirmedcolonoscopy on [...] Heart Rate 90 /min 04/08/2024 Blood pressure pcshxinpj50 mm Hg04/08/20243490Qvpoes35 in04/08/2024lood pressure mwkjpzaz133 mm Hg04/08/20246495Wdrrtt192 lbs106/09/2023BMI28.54 kg/m204/08/2024 Encounters Encounter Location Date Provider Diagnosis [facility] [place] [address] [place] [address] 05/01/2024 [id number] [place] [address] 04/08/2024Stephanie Bohland-FanfulikNoninfective gastroenteritis and colitis, unspecified K52.9 ; Personal history of colon polyps, unspecified Z86.0100 ; Acquired absence of other specified parts of digestive tract Z90.49 and Unspecified atrial fibrillation I48.91Gastroenter[facility] [id number] [place] [address]/08/2023Stepjanelle ShirinlorenaMolinamoniqueken Assessments Encounter Date Diagnosis (ICD Code) Assessment [...] call if his symptoms do not improve. 4Personal history of colon polyps, unspecified (ICD-10 - [...] to personal history colon polyps and inadequate prep.4Acquired absence of other specified parts of digestive [...] End Date MEDICARE [place] [address] [place] [address] [id number] Jigar Arnold Jr - patient is the insuredOP[address] [place], [place] [id number] Jr, FredrickSelf - patient is the insured Medical (General) History Medical History History ICD Code Chronic kidney disease, stage 3 (moderat e) N18.3 Hypothyroid E03.9 Afib 427.31 Surgical History Surgery Date(Month/Year) thyroidectomy, complete cardiac ablation [id number] in neckPACEMAKERCHOLECYSTECTOMYleft knee replacement right knee replacementhiatal herniaHospitalization History Reason Date(Month/Year) [facility] 01/2024
--- OUTSIDE RECORDS SUMMARY | 2025-03-25 07:07 | XMS_ITS | Clinical Summary ---
Author Organization [facility] Address [address] [place] [address] Care Team Providers Care Computer Programmer Chief Name Role Phone Radha Newton MD Primary Care Provider [phone] Esther Grey DO Unavailable Source Comments The following information is NOT included in Care Everywhere downloads:Psychiatric notes, ECG results, Cardiac Rehab notes, Pulmonary Function notes, data from [employer] (includes but not limited toPregnancy data,audiograms, eye exams, pre-surgical evaluation notes, well-child exam data).[facility] Allergies Active AllergyReactionsCriticalityNoted EnhyEwpsebbgYdsavbkplli28/24/2001 Medications MedicationSigDispense QuantityRefillsLast FilledStart DateEnd DateStatus benazepril [...] Discontinued) Active Problems ProblemNoted DateDiagnosed DatePersistent atrial bkdxeayzguoz78/24/2020Tension type evrobmif99/16/2020Nuclear sclerotic cataract, left10/07/2017 Overview (01/06/2020): Added automatically from request for surgery [id number] Retinal detachment, left10/07/2017 Overview (01/06/2020): Added automatically from request for surgery [id number] Added automatically from request for surgery [id number] Multifocal atrial tachycardiaPAF (paroxysmal atrial fibrillation)HTN (hypertension)CKD (chronic kidney disease) stage 3, GFR 30-59 ml/minChest pain Immunizations ImmunizationAdministration DatesNext DueInfluenza, injectable, quadrivalent, preservative free (DYT=538)01/28/2016Moderna Monovalent (12+ yrs) COVID-19 vaccine, mRNA, spike protein, LNP, PF, 100 mcg/0.5 mL (ZSK=880)07/15/2020, 06/17/2020Tdap (FVU=362)01/27/2013 Family History Medical HistoryRelationNameCommentsDiabetes MellitusFatherHypertensionFather HypertensionPaternal GrandmotherRelationNameStatusCommentsFatherPaternal Grandmother Social History Tobacco UseTypesPacks/DayYears UsedDateSmoking Tobacco: NyntopZzfvaavpyk1Ngkq: 01/06/1984Smokeless Tobacco: NeverAlcohol UseStandard Drinks/WeekCommentsYes1 (1 standard drink = 0.6 oz pure alcohol)AUDIT-CAnswerDate RecordedQ1: How often do you have a drink containing alcohol?Monthly or less01/06/2020Average Number of DrinksNot on file01/06/2020Frequency of Binge DrinkingNot on file01/06/2020PHQ-2 AnswerDate RecordedPHQ-2 Euaer804Substance UseTypesUse/WeekCommentsNever Sex and Gender InformationValueDate RecordedSex Assigned at BirthNot on file Legal ShdLizt2312/26/2019 2:01 PM EDTGender IdentityNot on fileSexual Orientation Not on file Last Filed Vital Signs Vital SignReadingTime TakenCommentsBlood Trwcrdgm653/7810 9:23 AM EDT Wnrla3505 9:23 AM NJXIyswvznopjw90.6 ??C (97.9 ??F)01/27/2020 9:23 AM EDTRespiratory Vjpt0476 9:23 AM EDTOxygen Mhlmowajal49%01/27/2020 9:23 AM EDTInhaled Oxygen Concentration--Zsabqf781.3 kg (252 lb)01/27/2020 9:23 AM BISZnyqpb227.1 cm (6' 6 )01/14/2020 5:19 PM EDTBody Mass Index29.1209 5:19 PM EDT Plan of Treatment Health MaintenanceDue DateLast WpisFzycadkhVabtsysehgb04/30/1956Hepatitis C Yrqqazyc90/30/1972Hepatitis A (HAV) Vaccine (optional start 19+ years)1972 Tayyzxijvxy06/30/1989CRC Obsvkyqbl98/30/1999Cologuard (Stool DNA)1998FIT 1998Pneumococcal Vaccine(s) (50+ yrs) (1 of 1 - PCV)2003Shingles (RZV) Vaccine (1 of 2)2003Hepatitis B (HBV) Vaccine (optional start 60+ years)2013bdominal Aortic Aneurysm Ttypspq7605/21/2018Annual Wellness Visit (G0438)02/21/2020TSHTetanus (Td or Tdap) Kydhhck6401/27/2023 01/27/2013asic Metabolic Panel/03/2023, 01/15/2020, 01/14/2020, Additional history existsCOVID-19 Vaccine ( - 2024- season)2024 04/10/2021, 07/15/2020, 06/17/2020Influenza Vaccine (#1)RSV vaccine (adult) (1 - 1-dose 75+ series)2028Tdap WofbjioRglirgcrj69/08/2013 Procedures Procedure NamePriorityDate/TimeAssociated DiagnosisCommentsBASIC METABOLIC PANEL Xugqpwl4801/15/2020 12:10 AM EDT KVHFjkjscd69/16/2020 3:03 PM EDT Persistent atrial fibrillation (HCC) Multifocal atrial tachycardia (HCC) Palpitations SOB (shortness of breath) Lightheaded Anticoagulated 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, unspecified type ADA (obstructive sleep apnea) Multiple gastric ulcers from Last 3 Months or Most Recently Relevant to Health Maintenance Results * (ABNORMAL) BASIC METABOLIC PANEL (01/15/2020 12:10 AM EDT)ComponentValueRef RangeTest MethodAnalysis TimePerformed AtPathologist XblrdirikGlqifck350(H)80 - 116 mg/dL01/15/2020 12:39 AM [facility] DYZBKUXNDOFfosft225977 - 148 mmol/L01/15/2020 12:39 AM [facility] LABORATORYPotassium3.73.3 - 5.3 mmol/L01/15/2020 12:39 AM [facility] LABORATORYCarbon Nkskxfq6130 - 30 mmol/L01/15/2020 12:39 AM [facility] HTQJOBBAHHJtkqwagl34078 - 111 mmol/L01/15/2020 12:39 AM [facility] LABORATORYBlood Urea Pmycobfq000 - 22 mg/dL01/15/2020 12:39 AM [facility] LABORATORYCreatinine1.32(H)0.80 - 1.30 mg/dL01/15/2020 12:39 AM [facility] LABORATORYCalcium6.8(L)8.4 - 10.4 mg/dL01/15/2020 12:39 AM [facility] LABORATORYAnion Gap15(H)5 - 13 01/15/2020 12:39 AM [facility] LABORATORYEstimated GFR (CKD-EPI)56(L) >=60 mL/min/1.04wuu6301/15/2020 12:39 AM [facility] LABORATORYSpecimen (Source)Anatomical Location / LateralityCollection Method / VolumeCollection TimeReceived TimeBloodBLOOD SPECIMEN / UnknownPort Draw / Bzbgqbm9301/15/2020 12:10 AM EDT01/15/2020 12:14 AM EDT Narrative Authorizing ProviderResult TypeResult StatusRyan Yavorsky DO98 GENERAL LABFinal ResultPerforming OrganizationAddressCity/State/ZIP CodePhone Number [facility] [address] [place] [address] * TSH (01/06/2020 3:03 PM EDT)ComponentValueRef RangeTest MethodAnalysis Time Performed AtPathologist SignatureTSH1.4120.450 - 5.330 uIU/mL01/06/2020 5:08 PM [facility] PATH[facility] LABORATORYSpecimen (Source)Anatomical Location / LateralityCollection Method / VolumeCollection TimeReceived TimeBloodBLOOD SPECIMEN / UnknownVenipuncture / Urqacmm9201/06/2020 3:03 PM EDT01/06/2020 4:15 PM EDT Narrative Authorizing ProviderResult TypeResult StatusSaima Karim DO98 GENERAL LABFinal ResultPerforming OrganizationAddressCity/State/ZIP CodePhone Number [facility] [address] [place] [address] from Last 3 Months or Most Recently Relevant to Health Maintenance Insurance [facility] Address: [address] [place] [address] * Guarantor: Everardo Arnold TypeRelation to PatientDate of PhoneBilling AddressGoing Home TcheMdek29/30/1956 [address] [address] Advance Directives * Full Code (Latest Code Status on File) Date ActivatedDate InactivatedComments01/15/2020 1:13 AM01/15/2020 5:04 PMQuestion AnswerCommentsDocumentation of decision process for this code status:* Discussed with patient or surrogate.?? This is the code status chosen by the patient/surrogate. Care Teams Team MemberRelationshipSpecialtyStart DateEnd Date Radha Newton MD [address] [place] [address] PCP - GeneralInternal Medicine01/14/20 Esther Grey DO [address] [place] [address] [place] [address] HwvulvuojIndqjdyothxadtqoc13/6/20
--- NOTE | 2025-03-25 07:30 | CA_ITS ---
Patient Name: YOLI ANTUNEZ MR#: [id number] : 1955 Exam Date: 03/25/2025 Ordering Doctor: YANDEL BURKS CNP ECHOCARDIOGRAM REPORT PROCEDURE: CA ECHO DOPPLER COMPLETE INDICATIONS: Aneurysm of ascending aorta without rupture, pacemaker COMPARISON: None. DESCRIPTION: COMPLETE ECHOCARDIOGRAM Real-time transthoracic echocardiography with 2D, M-mode, spectral and color flow Doppler performed. QUALITY: Technical quality was good. LEFT VENTRICLE: Normal chamber size. Mild concentric left ventricular hypertrophy. Systolic function is normal. Estimated left ventricular ejection fraction is 65%. LV EF: Normal left ventricular ejection fraction, (>55%). DIASTOLIC: Normal diastolic function. ATRIAL SEPTUM: Visually appears intact. LEFT ATRIUM: Normal chamber size. RIGHT ATRIUM: Normal chamber size. RIGHT VENTRICLE: Normal chamber size. Systolic function is normal. Pacer wire present. TRICUSPID VALVE: Normal mobility and thickness. No stenosis with trivial regurgitation. No evidence of pulmonary hypertension. RVSP 25 mmHg MITRAL VALVE: Normal mobility and thickness. No evidence of mitral valve stenosis. There is no mitral annular calcification. Trivial mitral regurgitation. AORTIC VALVE: Normal trileaflet appearance. No visible sclerosis. Normal leaflet mobility. No evidence of aortic valve stenosis. No aortic regurgitation. AORTIC ROOT: Upper normal diameter and appearance, measuring 4.0 cm. Ascending aorta is mildly dilated (4.2 cm). Aortic arch is normal in size. PULMONIC VALVE: Normal thickness and mobility. No stenosis. Trivial regurgitation. PERICARDIUM: No evidence of pericardial effusion. IVC: Collapses with inspiration. PLEURA: CONCLUSION: 1. Mild concentric left ventricular hypertrophy with normal systolic function. LVEF is estimated at 65%. 2. Normal right ventricular size and systolic function. 3. Normal diastolic function. 4. No significant valvular dysfunction. 5. Mildly dilated ascending aorta measuring 4.2 cm. 6. Normal right-sided pressures. Adult Echocardiography Procedure Report Left Ventricle LVEDD (3.7 - 5.6 cm): 4.68 cm LVESD (2.2 - 4.0 cm): 3.17 cm LVIVS thickness (0.6 - 1.2 cm): 1.18 cm LVPW thickness (0.5 - 1.0 cm): 1.18 cm e': 0.07 m/s E - e': 7.94 LVOT Max Gradient: 2.42 mm[Hg] LVOT Area (cm2): 0.78 m/s Peak Velocity (LVOT): 0.78 m/s Mean Velocity (LVOT): 0.47 m/s LVOT Diameter 2.33 cm Left Ventricular Ejection Fraction: 65 % Left Atrium LA Volume Index (2D A2C): 20.56 ml/m2 Left Atrium Systolic Dimension: 4.74 cm Mitral Valve MV E to A Ratio: 1.17 Mitral Valve A-Wave Peak Velocity: 0.46 m/s Mitral Valve E-Wave Peak Velocity: 0.54 m/s Right Ventricle Aorta AO Root Diam: 4.31 cm Aortic Valve AoV Area (Peak Andrey): 4.24 cm2, 4.24 cm2 AoV Area (VTI): 4.45 cm2, 4.45 cm2 Peak Velocity(Antegrade Flow): 0.78 m/s Peak Gradient(Antegrade Flow): 2.46 mm[Hg] Mean Velocity(Antegrade Flow): 0.47 m/s Mean Gradient(Antegrade Flow): 1.09 mm[Hg] Velocity Time Integral: 16.19 cm Tricuspid Valve Peak Velocity (Regurgitant Flow): 2.34 m/s, 2.22 m/s Pulmonic Valve Mean Gradient: 1.63 mm[Hg] Mean Velocity: 0.60 m/s Peak Velocity: 0.89 m/s Peak Gradient: 3.16 mm[Hg] Right Atrium Dictated by: Mono Santana M.D. on 03/25/2025 at 20:55 Approved by: Mono Santana M.D. on 03/25/2025 at 21:00
== END 2025-03-25 07:01 | disposition home or self-care (01) ==
LOC: US 07:00
PROVIDERS: PCP Family Medicine; Visit Provider Nurse Practitioner Family
DX: I71.21 Aneurysm of the ascending aorta, without rupture (principal)
CPT/HCPCS: 76775; 93306

== ENCOUNTER 2025-04-06 08:37 | Outpatient (OUT) | payer MEDICARE, OTHER, SELFPAY ==
--- OUTSIDE RECORDS SUMMARY | 2024-03-18 07:45 | XMS_ITS ---
Author Organization The [facility] in [place] Address [address] [place] [address] Care Team Providers Care Extension Clerk Name Role Phone Radha Newton MD Primary Care Provider Larry sauceda Provider, [facility] Unavailable [phone] Encounters Encounter Location Date Provider Diagnosis [facility] [address] [place] [address] 03/18/2024 [facility] Provider Plan Of Treatment No Information Progress Notes * Jayme ARNOLD JR, MDOB:0 1955 (69 yo M)Acc No.[id number]:03/18/2024 UNLOCKED PROGRESS NOTE ASC Surgery Patient: Amita Jayme CABAN JR :?ASC ProviderDOB:1955???Age:68 Y???Sex: MaleDate:4Phone:[phone]:[address] [place] [address] [address], [place], [place]Pcp:Mayela Ward In:11:18 AM EST Subjective: * Chief Complaints: * * Medical History: Objective: * Vitals: Assessment: Plan: * Treatment: * * Electronic signature of [facility] Provider on 04/06/2025 at 08:44 AM ESTSign off status: PendingVisit Status:?ARR (Check-In) * Provider: Amita SANTORO Provider Date: 05/18/2023 Generated for Printing/Faxing/eTransmitting on:?04/06/2025 08:44 AM EST
--- OUTSIDE RECORDS SUMMARY | 2024-03-18 07:50 | XMS_ITS ---
Author Organization [facility] in [place] Address [address] [place] [address] Care Team Providers Care Certified Registered Nurse Practitioner Name Role Phone Radha Newton MD Primary Care Provider Michelle Leon [phone] REASON FOR VISIT MCANDREI PM, LJ, Dr. Newton, Chronic Diarrhea, Medicare/MMO, 02/16, Plenvu Encounters Encounter Location Date Provider Diagnosis [facility] [address] [place] [address] 03/18/2024 Michelle Gilmore Plan Of Treatment No Information Progress Notes * Jayme ARNOLD JR MDOB:0 1955 (69 yo M)Acc No.[id number]:03/18/2024 UNLOCKED PROGRESS NOTE Op Note Patient: Amita Jayme CABAN JR :?Michelle Gilmore, MDDOB:1955???Age:68 Y ???Sex:MaleDate:4Phone:[phone]:[address] [place] [address] [address], [facility]Pcp:Mayela Ward Out:03:23 PM EST Subjective: * Chief Complaints: * 1 . JL YAO, Dr. Newton, Chronic Diarrhea, Medicare/MMO, 02/16, Susan. * Medical History: Objective: * Vitals: Assessment: Plan: * Treatment: * * Electronic signature of Michelle Gilmore MD, [id number] on 04/06/2025 at 08:45 AM EST Sign off status: PendingVisit Status:?CHK (Check Out) * Provider: Liz Gilmore MD Date: 05/18/2023 Generated for Printing/Faxing/eTransmitting on:?04/06/2025 08:45 AM EST
--- OUTSIDE RECORDS SUMMARY | 2025-04-01 11:30 | XMS_ITS | Encounter Summary ---
Author Organization [facility] Address [address] [place] [address] Care Team Providers Care Career Development Engineer Name Role Phone Radha Newton MD Primary Care Provider [phone] Reason for Visit * ReasonCommentsDizzinessPalpitations Encounter Details DateTypeDepartmentCare Team (Latest Contact Info)Iutsbnfvath49/11/2025 11:30 AM ESTOffice Visit [facility] [address] [place] [address] Iram Shen CNP [address] [place] [address] Orthostatic hypotension (Primary Dx); Neurogenic orthostatic hypotension (CMS/HCC); Palpitations; Chronotropic incompetence with autonomic dysfunction; Near syncope; PERAZA (dyspnea on exertion); Aneurysm of ascending aorta without rupture; Paroxysmal atrial fibrillation (CMS/HCC); 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; Sick sinus syndrome (CMS/HCC); Presence of Watchman left atrial appendage closure device Social History Tobacco UseTypesPacks/DayYears UsedDateSmoking Tobacco: [id number] 1967 - 1983CigarsSmokeless Tobacco: FormerChewQuit: 1983 Tobacco Cessation:Counseling Given: No Alcohol UseStandard Drinks/WeekCommentsYes1 (1 standard drink = 0.6 oz pure alcohol)occasionalAHC UtilitiesAnswerDate RecordedIn the past 12 months has the electric, gas, oil, or water company threatened to shut off services in your home?No04/08/2024Overall Financial Resource Strain (CARDIA)AnswerDate Recorded How hard is it for you to pay for the very basics like food, housing, medical care, and heating?Not hard at all04/08/2024HQ-2AnswerDate RecordedPatient Health Questionnaire-2 Rdvuy61606/02/2024Humiliation, Afraid, Rape, and Kick questionnaireAnswerDate RecordedWithin the last year, have you been afraid of your partner or ex-partner?No04/01/2025Within the last year, have you been humiliated or emotionally abused in other ways by your partner or ex-partner?No 04/01/2025Within the last year, have you been kicked, hit, slapped, or otherwise physically hurt by your partner or ex-partner?No04/01/2025Within the last year, have you been raped or forced to have any kind of sexual activity by your part ner or ex-partner?No04/01/2025TransportationAnswerDate RecordedIn the past 12 months, has lack [...] were you homeless or living in a correction (including now)? No04/08/2024Hunger Vital SignAnswerDate RecordedWithin the past 12 months, you worried that your food would run out before you got the money to buymore.Never true04/08/2024an Out of Food in the Last YearNot on file04/08/2024Sex and Gender InformationValueDate RecordedSex Assigned at SlcyqDbnq39/18/2024 5:12 PM ESTLegal TabEzgd3010/18/2021 10:00 PM EDTGender DmfveilmKghf88/18/2024 5:12 PM EST Sexual OrientationChoose not to zpuhwtfm02/18/2024 5:12 PM ESTdocumented as of this encounter Last Filed Vital Signs Vital SignReadingTime TakenCommentsBlood Jqchqimi011/7704/01/2025 11:37 AM EST Wdwzq804204/01/2025 11:37 AM ESTTemperature--Respiratory Rate--Oxygen Saturation-- Inhaled Oxygen Concentration--Izpaxy240 kg (272 lb 12.8 oz)04/01/2025 11:33 AM CFTRqwxnt208.1 cm (6' 6 )04/01/2025 11:33 AM ESTBody Mass Index31.5304/01/2025 11:33 AM ESTdocumented in this encounter Functional Status documented as of this encounter Progress Notes * Iram Shen CNP - 04/01/2025 11:30 AM EST Images from the original note were not included. Cardiovascular Medicine [facility] SUBJECTIVE Chief Complaint Patient presents with Dizziness Palpitations Everardo Braxtonjordi Garcia is a 69 y.o. male here for [...] past medical history is significant for CAD. Migraine PMHx: CAD s/p PCI, a.fib/flutter s/p ablation and s/p WATCHMAN, SND s/p PPM implant on 07/09/2023, orthostatic hypotension, TIA, POTS, intermittent expressive aphasia, HTN, HLD, chronic chest pain 04/01/2025 He has been having worsening episodes of dizziness, palpitations, and fatigue. He has noticed after riding his stationary bike for 15 minutes or so he will feel wiped out for about an hour or so. BP prior to exercise 148/78, HR 78, after exercise BP 118/70, HR 98. His BP cuffwill tell him he is irregular. Reviewed his pacemaker with Dr. Godwin. He is having PACs, roughly about 15% of the time which is likely what his BP cuff is capturing. He does not his HR could be as high as 120s at times which also makes him feel fatigued. He has increased his droxidopa to 200mg TID since last seen. 03/17/2025 He was in the ER yesterday for c/o chest pain. Labs were unremarkable, troponin and d-dimer negative. He felt like this chest pain was a little different. Was middle/left chest that radiated down hisright arm and to his back. He also has hx of cervical neck issues. Since last seen, he was seen by neurology at [facility] and diagnosed with parkinsonism. Theyare wanting to initiate sinemet but are wanting his BP to be better controlled. BP at home has been running 140s/90s. Occasionally will still have episodes of dropping but this has been improved since starting droxidopa. BP drops when he takes SL nitroglycerin. On going issues with dizziness. Typically when he looks/walks up the ladder. He also gets SOB during this time and often needs to stop climbing the steps to his barn. 01/19/2025 Pt went to [facility] ER due to having an episode of CP then he had a syncopal episode. His work up in theER was unremarkable. His Sarah accompanied him today. He continues to have episodes of CP with exertion. BP in the AM 160s/80s and then may drop to 90s/40s after a few hours. He c/o ongoing dizziness. He often will have chest pain when he is climbing up the stairs in his barn. He notes his [facility] debbi will tell him he is in [...] and notes this will pass in a fewhours. 10/01/2024 After his last visit we tried [...] cervical disc disease. Neuro referred him to [facility] for further evaluation of his ptosis [...] chest pain. He gets SOB with exertion. Hefeels dizzy when his BP is too low. Denies LE edema, syncope. Hospital course: Everardo Arnold Jr. is a 68 y.o. male for primary hypertension, atrial fibrillation on sotalolstatus post watchman not on anticoagulation, sinus node dysfunction status post dual-chamber permanent pacemaker, coronary artery disease status post cardiac catheterization 08/2023, POTS who presented to [facility] ED with ongoing chest pain that has been worsening over the last year, he was seen in ourcardiology clinic as outpatient and was sent to [...] (CMS/HCC) Essential hypertension Coronary artery disease involving venetie coronary artery of venetie heart without angina pectoris Recurrent falls History [...] with urinary obstruction Acute renal failure syndrome EMELIA (acute kidney injury) Apnea Arthralgia of upper arm Acute gastric [...] collapse Aneurysm of ascending aorta without rupture Coronary artery disease involving venetie coronary artery of venetie heart POTS (postural orthostatic tachycardia syndrome) Atrial fibrillation with RVR (CMS/HCC) Abnormal ECG Atrial flutter (CMS/HCC) Atypical angina Calculus of kidney Total retinal detachment of left eye Acquired absence of other specified parts of digestive tract History of CVA (cerebrovascular accident) History of excision of intestinal structure Noninfective gastroenteritis and colitis, unspecified Diarrhea Stage 3a chronic kidney disease (CMS/HCC) Stage 3b chronic kidney disease (CMS/HCC) Past Medical History: Diagnosis Date Adverse effect of anesthesia Aphasia Angina pectoris Ongoing Arrhythmia Arthritis 2017 Atrial fibrillation ([facility]) Chronic kidney disease stage 3 b Coronary artery disease Disease of thyroid gland Dysphagia 2018 Fractures Years GERD (gastroesophageal reflux disease) 2019 GI (gastrointestinal bleed) 2020 Hiatal hernia 2020 HL (hearing loss) 2009 Hypertension Irregular heart beat 12/2021 Pancreatitis, gallstone Parkinson's disease ([facility]) Shortness of breath 09/2021 Sleep apnea Years Spinal headache 1990 TIA (transient ischemic attack) Family History Problem Relation Name Age of Onset Hypertension Mother Arabella Cancer Mother Arabella Stroke Mother Arabella Hypertension Father Jamil Aortic aneurysm Father Jamil Cancer Father Jamil Aortic aneurysm Paternal Grandfather Sudden Neg Hx [...] [Dofetilide] Other aphasia Vancomycin Itching Itching hands/feet OBJECTIVE Visit Vitals BP 133/77 (BP Location: Left arm, Patient Position: Standing, BP Cuff Size: Adult) Pulse 89 Ht 1.981 m (6' 6 ) Wt 124 kg (272 lb 12.8 oz) BMI 31.53 kg/m?? Smoking Status Former BSA 2.61 m?? Medications: Current Outpatient Medications: aspirin 81 mg chewable tablet, Chew 1 tablet (81 mg) in the morning. Do not start before March 08, 2022., Disp: 30 tablet, Rfl: 3 calcitriol (Rocaltrol) 0.25 mcg capsule, Take 0.25 mcg by mouth in the morning., Disp: , Rfl: calcium 500 mg calcium (1,250 mg) tablet, Take 1 tablet by mouth in the morning., Disp: , Rfl: droxidopa (Northera) 200 mg capsule, Take 1 capsule (200 mg) by mouth three times daily., Disp: 90 capsule, Rfl: 6 ergocalciferol (Vitamin D-2) 1.25 MG (88891 Units) capsule, Take 1 capsule by mouth 1 (one) time per week., Disp: , Rfl: levothyroxine (Synthroid, Levoxyl) 150 mcg tablet, Take 150 mcg by mouth before breakfast., Disp: ,Rfl: magnesium oxide (Mag-Ox) 400 mg (241.3 mg magnesium) tablet, Take 235 mg by mouth twice a day., Disp: , Rfl: nitroglycerin (Nitrostat) 0.4 mg SL tablet, Place 0.4 mg under the tongue., Disp: , Rfl: pramipexole (Mirapex) 1 mg tablet, Take 1 mg by mouth once daily as directed., Disp: , Rfl: sotalol (Betapace) 120 mg tablet, Take 1 tablet (120 mg) by mouth every 12 (twelve) hours., Disp: 180 tablet, Rfl: 3 Physical Exam Constitutional: Appearance: Normal appearance. He is normal weight. HENT: Head: Normocephalic and atraumatic. Right Ear: External ear normal. Left Ear: External ear normal. Eyes: Conjunctiva/sclera: Conjunctivae normal. Cardiovascular: Rate and Rhythm: Normal rate and regular rhythm. Pulses: Normal pulses. Heart sounds: Normal heart sounds. Pulmonary: Effort: Pulmonary effort is normal. Musculoskeletal: General: Normal range of motion. Skin: General: Skin is warm and dry. Neurological: Mental Status: He is alert and oriented to person, place, and time. Mental status is at baseline. Comments: Right eye ptosis Psychiatric: Mood and Affect: Mood normal. Behavior: Behavior normal. Thought Content: Thought content normal. Judgment: Judgment normal. Labs: Admission on 04/08/2024, Discharged on 04/10/2024 Component Date Value Ref Range Status Sodium 04/08/2024 140 136 - 145 mmol/L Final Potassium 04/08/2024 4.0 3.5 - 5.1 mmol/L Final Chloride 04/08/2024 107 98 - 107 mmol/L Final CO2 04/08/2024 24 21 - 31 mmol/L Final BUN 04/08/2024 29 (H) 7 - 25 mg/dL Final Creatinine 04/08/2024 1.60 (H) 0.70 - 1.30 mg/dL Final Glucose 04/08/2024 85 70 - 100 mg/dL Final Calcium 04/08/2024 8.3 (L) 8.6 - 10.3 mg/dL Final Anion Gap 04/08/2024 13 7 - 20 mmol/L Final eGFR 04/08/2024 46.1 (L) >60.0 mL/min/1.73m*2 Final BUN/Creatinine Ratio 04/08/2024 18.1 Final Troponin I 04/08/2024 0.01 0.00 - 0.04 ng/mL Final Ventricular Rate 04/08/2024 79 BPM Final Atrial Rate 04/08/2024 79 BPM Final [place] Interval 04/08/2024 254 ms Final QRS DURATION 04/08/2024 76 ms Final QT Interval 04/08/2024 438 ms Final QTC CALCULATION(BAZETT) 04/08/2024 502 ms Final P Hannaford 04/08/2024 69 degrees Final R-Hannaford 04/08/2024 35 degrees Final T Wave Hannaford 04/08/2024 31 degrees Final Auto WBC 04/08/2024 6.74 4.00 - 10.60 10*3/uL Final RBC 04/08/2024 4.95 4.20 - 5.70 10*6/uL Final Hemoglobin 04/08/2024 13.9 13.0 - 17.0 g/dL Final Hematocrit 04/08/2024 42.7 39.0 - 55.0 % Final MCV 04/08/2024 86.3 82.0 - 98.0 fL Final MCH 04/08/2024 28.1 27.0 - 33.0 pg Final MCHC 04/08/2024 32.6 32.0 - 35.0 g/dL Final RDW 04/08/2024 15.5 (H) 11.5 - 15.0 % Final Neutrophils % 04/08/2024 60.7 40.0 - 72.0 % Final Lymphocytes % 04/08/2024 25.7 20.0 - 45.0 % Final Monocytes % 04/08/2024 8.6 5.0 - 12.0 % Final Eosinophils % 04/08/2024 3.6 0.0 - 6.0 % Final Basophils % 04/08/2024 0.7 0.0 - 1.0 % Final Neutrophils Absolute 04/08/2024 4.09 1.60 - 7.60 10*3/uL Final Lymphocytes Absolute 04/08/2024 1.73 1.20 - 4.00 10*3/uL Final Monocytes Absolute 04/08/2024 0.58 0.10 - 1.00 10*3/uL Final Eosinophils Absolute 04/08/2024 0.24 0.00 - 0.50 10*3/uL Final Basophils Absolute 04/08/2024 0.05 0.00 - 0.20 10*3/uL Final Platelets 04/08/2024 215 150 - 400 10*3/uL Final nRBC % 04/08/2024 0.0 0 % Final Immature Granulocytes % 04/08/2024 0.7 0.0 - 1.0 % Final Immature Granulocytes Absolute 04/08/2024 0.05 0.00 - 0.20 10*3/uL Final Protime 04/08/2024 13.5 12.3 - 14.8 Seconds Final INR 04/08/2024 1.03 0.90 - 1.10 Final aPTT 04/08/2024 31.1 25.0 - 35.0 Seconds Final BNP 04/08/2024 66 0 - 100 pg/mL Final D-Dimer, Quant (FEU) 04/08/2024 0.27 0.27 - 0.49 mcg/mL FEU Final Troponin I 04/08/2024 0.00 0.00 - 0.04 ng/mL Final Troponin I 04/09/2024 0.00 0.00 - 0.04 ng/mL Final Sodium 04/09/2024 141 136 - 145 mmol/L Final Potassium 04/09/2024 4.1 3.5 - 5.1 mmol/L Final Chloride 04/09/2024 108 (H) 98 - 107 mmol/L Final CO2 04/09/2024 25 21 - 31 mmol/L Final BUN 04/09/2024 27 (H) 7 - 25 mg/dL Final Creatinine 04/09/2024 1.34 (H) 0.70 - 1.30 mg/dL Final Glucose 04/09/2024 86 70 - 100 mg/dL Final Calcium 04/09/2024 7.6 (L) 8.6 - 10.3 mg/dL Final Anion Gap 04/09/2024 12 7 - 20 mmol/L Final eGFR 04/09/2024 57.0 (L) >60.0 mL/min/1.73m*2 Final BUN/Creatinine Ratio 04/09/2024 20.1 Final Troponin I 04/09/2024 0.00 0.00 - 0.04 ng/mL Final Ventricular Rate 04/09/2024 77 BPM Final Atrial Rate 04/09/2024 77 BPM Final [place] Interval 04/09/2024 252 ms Final QRS DURATION 04/09/2024 82 ms Final QT Interval 04/09/2024 442 ms Final QTC CALCULATION(BAZETT) 04/09/2024 500 ms Final P Hannaford 04/09/2024 71 degrees Final R-Hannaford 04/09/2024 5 degrees Final T Wave Hannaford 04/09/2024 56 degrees Final Ventricular Rate 04/10/2024 79 BPM Final Atrial Rate 04/10/2024 79 BPM Final KY Interval 04/10/2024 246 ms Final QRS DURATION 04/10/2024 76 ms Final QT Interval 04/10/2024 384 ms Final QTC CALCULATION(BAZETT) 04/10/2024 440 ms Final R-Hannaford 04/10/2024 61 degrees Final T Wave Hannaford 04/10/2024 224 degrees Final Sodium 04/10/2024 140 136 - 145 mmol/L Final Potassium 04/10/2024 4.2 3.5 - 5.1 mmol/L Final Chloride 04/10/2024 106 98 - 107 mmol/L Final CO2 04/10/2024 26 21 - 31 mmol/L Final BUN 04/10/2024 25 7 - 25 mg/dL Final Creatinine 04/10/2024 1.41 (H) 0.70 - 1.30 mg/dL Final Glucose 04/10/2024 85 70 - 100 mg/dL Final Calcium 04/10/2024 7.7 (L) 8.6 - 10.3 mg/dL Final Anion Gap 04/10/2024 12 7 - 20 mmol/L Final eGFR 04/10/2024 53.6 (L) >60.0 mL/min/1.73m*2 Final BUN/Creatinine Ratio 04/10/2024 17.7 Final Ventricular Rate 04/10/2024 84 BPM Final Atrial Rate 04/10/2024 84 BPM Final KY Interval 04/10/2024 272 ms Final QRS DURATION 04/10/2024 78 ms Final QT Interval 04/10/2024 430 ms Final QTC CALCULATION(BAZETT) 04/10/2024 508 ms Final P Hannaford 04/10/2024 78 degrees Final R-Hannaford 04/10/2024 29 degrees Final T Wave Hannaford 04/10/2024 2 degrees Final Lab Results Component Value Date BNP 66 04/08/2024 Testing/Procedures: No results found for this or any previous visit (from the past 4464 hours). ECHO 03/25/2025 Mild LVH with normal systolic function, estimated LVEF 65% Mildly dilated AscAo measuring 4.2cm. No significant valvular dysfunction. Normal right sided pressures . ECHO 09/01/2024 Stress test 04/10/2024 Negative perfusion stress test for ischemia, Normal myocardial perfusion with soft tissue artifact,Normal global left ventricular function with EF 53, Transient ischemia dilatation of the left ventricle is seen that is associated with severe multi-vessel coronary artery disease, volume overload orhypertensive heart disease, TID index score is 1.24 and Negative Lexiscan ECG stress test for ischemia. ECHO 04/09/2024 Left Ventricle: The left ventricle is normal size. Global left ventricular systolic function is mildly reduced. The EF is 45 % visually. Left ventricular wall thickness is increased. Diffuse global hypokinesis. Diastolic dysfunction was indeterminate. Right Ventricle: The right ventricle is enlarged. Right ventricular systolic function appears normal. Doppler studies suggest normal right sided pressures. Left Atrium: The left atrium is normal in size. Overall Conclusions: Due to suboptimal imaging Lumason contrast was administered for opacification and better delineation of endocardial borders. Cardiovascular Laboratory Report 08/30/2023 FINAL IMPRESSIONS: Moderate to severe disease of [...] angiotensin-converting enzyme inhibitor Follow-up with Dr. Shukri Godwin, Electrophysiology as scheduled Follow-up with [facility] [place] as scheduled EP lab Conclusion 07/09/2023 Indications for permanent pacemaker implantation and loop recorder removal: The patient is a 68-year-old gentleman who has developed sick sinus syndrome with periods of junctional bradycardia alternating with tachycardia As documented by an implantable loop recorder. He has had several syncopal Episodes associated with bradycardia. Because of this he will undergo permanentpacemaker implantation with implantable loop recorder removal. Final impressions: 1. Dual-chamber pacemaker insertion (biotronik) 2. Loop recorder removal 3. Fluoroscopy 4. Conscious sedation 5. Contrast injection for venography of the upper extremity NM stress test 06/07/2023 No acute or reversible ischemia Diaphragm attenuation artifact vs mildly decreased perfusion of the inferior wall; stable between stress and rest imaging. Attenuation artifact suspected. Normal wall motion, LV volume, and EF ECHO 06/07/2023 LV is normal and size with mild LVH with low normal EF, LVEF 50-55% Mild to moderate RV dilatation with normal systolic function Moderate biatrial dilatation Normal diastolic function Mild mitral, aortic, pulmonic and tricuspid regurg Normal right-sided pressures No pericardial effusion Limited ECHO (03/07/2022) Left Ventricle: The left ventricle is normal size. Global left ventricular systolic function is normal. Left ventricular wall thickness is normal. No regional wall motion abnormality. Right Ventricle: The right ventricle is normal in size. Normal right ventricular systolic function. Left Atrium: The left atrium is normal in size. Pericardium: No pericardial effusion. laboratory coordinator (03/06/2022) PROCEDURES: 1. Successful left atrial appendage closure using a 24 mm Watchman FLX device performed under fluoroscopic and transesophageal echocardiography guidance. 2. Transseptal puncture performed under fluoroscopic and transesophageal echocardiography guidance. 3. Left atrial appendage angiogram. 4. Access into the right common femoral venous vein under ultrasound guidance. 5. Preclosure in the right common femoral vein. RECOMMENDATIONS: 1. The patient will be observed in the hospital. 2. The patient will obtain an echocardiogram the following morning. 3. Endocarditis prophylaxis for 6 months after left atrial appendage closure. 4. Continue current aspirin and start clopidogrel tonight. the patient will be maintained on dual antiplatelet therapy with aspirin and Plavix for 6 months post watchman procedure. Following that he will be maintained on aspirin only. 5. The patient will be scheduled for a 45-day CHANTELLE per Watchman protocol, and follow up in Cardiology Clinic. ECG 12/29/2021: Sinus bradycardia, QTC 457 ms. Echocardiogram 12/12/2021: LV systolic function is normal, EF 55%, normal RV systolic function. No pericardial effusion. Anterior free space is seen, which is stable from previous studies. EP lab (11/09/21): loop recorder implant ATRIAL FIBRILLATION ABLATION PROCEDURE NOTE DATE OF PROCEDURE: 08/25/2020 PERFORMING PHYSICIAN: Dr. Perfecto Jordan CONSENT: Patient NAME OF THE PROCEDURE: Pulmonary Vein Isolation and Comprehensive EP study. INDICATIONS FOR PROCEDURE: 1. Persistent atrial fibrillation non responsive to pharmacologic therapy. PROCEDURES PERFORMED: 1. Sonosite guided venous access as noted below and images stored in PACS. 2. Comprehensive EP study and catheter ablation for persistent atrialfibrillation through the pulmonary vein isolation technique. This includes right atrial recording and pacing, His bundle recording and right ventricular recording and pacing. 3. Intracardiac EP 3D mapping. 4. Intracardiac echocardiogram 5. Left atrial and coronary sinus recording and pacing to assess ablation results. 6. Left heart pressure measurements and LV pacing and recording. 7. Induction of arrhythmia and testing of ablation results using intravenous adenosine infusion. 8. Fluroscopy. POST PROCEDURE DIAGNOSIS 1. Persistent atrial fibrillation s/p repeat PVI (WACA) + Superior roof and Inferior line (posterior box isolation). 2. Prior history of Afib ablation with PVI+ posterior boxisolation (all reconnected) 3. Prior Atrial flutter s/p CTI ablation x 2 with confirmed CTI block. 4. EP study revealing no retrograde accessory pathway. 5. Very high LA filling pressures likely frommoderate mitral regurgitation. PLAN: 1. Anticoagulation after 6 hrs of sheath removal indefinitely.2. Protonix 40mg bid x 1 month 3. Groin precautions. Cardiovascular Laboratory Report (05/26/2020 - ) FINAL IMPRESSION: 1. Moderate to severe disease of a small second diagonal branch of the left anterior descending coronary artery. 2. Mild disease of the left anterior descending coronary artery. 3. Normal global left ventricular systolic function by noninvasive imaging. RECOMMENDATIONS: 1. Consider alternate etiologies for the patient's chest pain symptoms may be musculoskeletal, gastrointestinal, and/or pulmonary. 2. Aggressive cardiovascular risk factor modification. 3. Optimization of medical management; aspirin, high-intensity statin therapy, beta gonzález, plus or minus an angiotensin-converting enzyme inhibitor are indicated. 4. Follow up in the [facility] as scheduled. 5. Follow up with his family physician as scheduled. 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 Godwin -He notes he is being evaluated by neurology - dx'd with parkinsonism. -Pt brought to [facility] clinic to be seen with Dr. Godwin due to worsening sx's of dizziness and fatigue. -Dr. Godwin reviewed his pacemaker readings. No arrhythmias noted since his last device check. He ishaving PACs roughly 15% of the time which is likely what his BP cuff is recording as irregular beats. -Dr. Godwin adjusted his CLS settings today. CLS function adjusted to be high or more senstive. Pacing rate increased to 120 when in CLS mode. Pacing HR also increased to 120bpm when CLS function activated. -Will reassess in 1-2 weeks and pt will let me know how he is feeling. If sx's not improved, will further increase droxidopa. Of note, Dr. Godwin states most pt's need to be on 600mg TID to have benefits of medication. -Okay for higher BP readings for him. Previous medications trialed: -Midodrine caused his BP to become too high. May need to revisit using this medication with initiation of parkinson's medications as those can lower BP. -He tried pyridostigmine in the past but this worsened his diarrhea. -Unable to tolerate metoprolol, worsens sx's -Advised he change positions with caution, stay hydrated. Sit down if feeling symptomatic. Encouraged exercise/weight lifting. -Discussed plan with Dr. Godwin who agrees. #CAD s/p PCI with stable angina -He continues to have sx's of angina with exertion, sx's are relieved by SL nitroglycerin. -Pt's last cath 08/2023 showing stable CAD, no intervention due to small vessels and recommended medical management. He has had follow-up with interventional cardiology and again medical management recommended and investigation into other etiologies for chest pain. Thus far, other etiologies of chest pain have been ruled out. -It is likely patient has microvascular disease that is contributing to his symptoms. Also changes in BP may be affecting perfusion leading to sx's. -He is unable to tolerate Imdur or Ranexa along with BB's or amlodipine. -He tried cardiac rehab but he was unable to tolerate as this worsened his dysautonomia symptoms post cardiac rehab. -Continue ASA -At last visit, discussed indication for statin. He reports they make him feel worse. Offered otheralternatives but he declined at this time. -Recent ER visit with c/o chest pain that radiated to his back and accompanied right arm pain/numbness. Will check an ECHO to assess his AsoAo aneurysm. He also has cervical spine issues which may bealso causing sx's. -Recent ECHO unremarkable. Consider other causes for chest pain. #AscAo dilatation -Stable at 4.2 per 03/2025 ECHO - reviewed with pt -Continue routine monitoring #AAA -US ordered - no evidence of aortic aneurysm. #Paroxysmal a.fib #S/p WATCHMAN implant 02/2022 #S/p ablation of aflutter and a.fib x2 -RRR on exam -Continue ASA 81mg daily and sotalol 120mg BID #Mildly reduced LV dysfunction at 45%, recovered -Recent ECHO 03/2025 showed normal function at 65% -Compensated on exam -GDMT: limited by orthostatic hypotension Follow up in about 2 months (around 06/02/2025). Iram Shen CNP [facility] documented in this encounter Plan of Treatment DateTypeDepartmentCare Team (Latest Contact Info)Wehueweymhc63/03/2026 9:00 AM ESTOffice Visit [facility] [address] [place] [address] Iram Shen, DIRECTOR CLOUD TRANSFORMATION [address] [place] [address] documented as of this encounter Visit Diagnoses Diagnosis Orthostatic hypotension- Primary Neurogenic orthostatic hypotension (CMS/HCC) Palpitations Chronotropic incompetence with autonomic dysfunction Unspecified disorder of autonomic nervous system Near syncope PERAZA (dyspnea on exertion) Other dyspnea and respiratory abnormality Aneurysm of ascending aorta without rupture Paroxysmal atrial fibrillation (CMS/HCC) Atrial fibrillation 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
--- OUTSIDE RECORDS SUMMARY | 2025-04-06 08:44 | XMS_ITS | Clinical Summary ---
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 Name Role Phone Radha Newton MD Primary Care Provider [phone] Elian Ceballos MD Unavailable Herminia Roland MD Unavailable [phone] Allergies Active AllergyReactionsCriticalityNoted AelkZpyswmneTtvoyatzkezIntaebb77/24/2001 DofetilideOther: See Fszxczwo36/06/2023 Aphasia, dizzy, muscle cramps FcmlzamqgaTzetlcslvqe37/06/2023 Medications MedicationSigDispense QuantityRefillsLast FilledStart DateEnd DateStatus pramipexole [...] persistent atrial fibrillation s/p PVI 12/2019 ( [facility]), redo PVI 07/2020 ( [facility]) , atrial [...] with intractable migraine, so stated, with status vvvgisctekg17/09/2023alculus of gallbladder 01/02/2022Idiopathic acute pancreatitis without infection or mgcfafkg26/13/2022 Atrial pbysphu6712/14/2020 Overview (12/14/2020): - S/p CTI ablation 11/2019- [facility] Primary irncyygfhexa22/25/2021 Overview (12/14/2020): - chronic, stable - continue home Benazepril, norvasc CAD (coronary artery disease)12/14/2020 Overview (12/14/2020): - reported 60% stenosis - further details unknown CKD (chronic kidney disease)12/14/2020 Overview (12/14/2020): - baseline Cr unknown ADA (obstructive sleep apnea)12/14/2020 Overview (12/14/2020): -chronic, on CPAP at home -stable -Continue CPAP while in hospital TIA (transient ischemic attack)12/14/2020 Overview (12/14/2020): TIA 2016, 2017 - Patient with visual disturbances,m aphasia eveing of 12/13 and morning of 12/14-- 2CLOT activated - CT head 12/13/2020- no acute findings - EEG today, headache cocktail and brain MRI - Neurology following Thyroid cixkxup3612/14/2020 Overview (12/14/2020): - chronic, stable - home replacement therapy continued GERD (gastroesophageal reflux disease)12/14/2020 Overview (12/14/2020): - chronic - receiving home protonix, sucralfate Restless leg12/14/2020 Overview (12/14/2020): - chronic - continue home mirapex Persistent atrial qjulkmklnfpg08/24/2021 Overview (12/14/2020): - Chronic - stable - [...] (10/07/2017): Added automatically from request for surgery [id number] Total retinal detachment of left eye10/07/2017 Overview (10/07/2017): Added automatically from request for surgery [id number] Nuclear sclerotic cataract, left10/07/2017 Overview (10/07/2017): Added automatically from request for surgery [id number] Tension headache Encounters DateTypeDepartmentCare UkwjVttmxqwxmuk23/04/2025 Patient Msg Neurology [address] [place] [address] Provider, Ccf EMG Order03/15/2025 Patient Msg Neurology [address] [place] [address] Provider, Ccf Requested EMG Yheqxhhtpjj58/21/2025Results Follow-Up Neurology [address] [place] [address] Shahriar Bravo, GROUND OPERATIONS SUPERVISOR.ENTERPRISE INFRASTRUCTURE ARCHITECT 03/12/2025 Get Medical Advice Neurology [address] [place] [address] Shahriar Bravo, GROUND OPERATIONS SUPERVISOR.ENTERPRISE INFRASTRUCTURE ARCHITECT EMG03/09/2025 3:30 PM ESTOffice Visit [facility] [address] [place] [address] Zev Hudson MD Primary parkinsonism (HCC) (Primary Dx); Abnormality of gait and mobility; Orthostatic hkipnbgwsje16/18/2025 12:00 PM ESTProcedure Neurology [address] [place] [address] EMG03/09/20256968Bpkglq74/08/2025 Get Medical Advice Neurology [address] [place] [address] Shahriar Bravo, GROUND OPERATIONS SUPERVISOR.ENTERPRISE INFRASTRUCTURE ARCHITECT EEG02/12/2025 Patient Msg Neurology [address] [place] [address] Shahriar Bravo, GROUND OPERATIONS SUPERVISOR.ENTERPRISE INFRASTRUCTURE ARCHITECT AVS1 11:45 AM EDTOffice Visit Neurology [address] [place] [address] Shahriar Bravo, GROUND OPERATIONS SUPERVISOR.ENTERPRISE INFRASTRUCTURE ARCHITECT Orthostatic hypotension (Primary Dx); Ptosis of right eyelid; TIA (transient ischemic attack); Transient loss of consciousness; Orthostatic lightheadedness; Chronic migraine with aura without status migrainosus, not intractable; Cuacnrwqdn54/16/6385Hyajfb38/30/2025Telephone [facility] [address] [place] [address] Zev Hudson MD Umdlgq2201/11/2025Telephone [facility] [address] [place] [address] Zev Hudson MD Imaging Request ([facility])01/07/2025 4:00 PM EDTOffice Visit [facility] [address] [place] [address] Zev Hudson MD Abnormality of gait and mobility (Primary Dx); Falls frequently; Orthostatic hypotensionfrom Last 3 Months Immunizations ImmunizationAdministration DatesNext Dueinfluenza [...] 2DeceasedSonAlive Social History Tobacco UseTypesPacks/DayYears UsedDateSmoking Tobacco: OpkmkwNfqswrbklj819 09/12/1968 - 09/13/1983Smokeless Tobacco: Never Tobacco Cessation:Counseling Given: No Alcohol UseStandard Drinks/WeekCommentsYes0 (1 standard drink = 0.6 oz pure alcohol)1 beer once a monthPHQ-2AnswerDate RecordedPHQ-2 gclsi309rea Deprivation IndexAnswerDate RecordedNational Score (1-100), lower number is lower paqa991909/13/2022State Score (1-10), lower number is lower qpdv875 Data from: https://www.neighborhoodatlas.medicine.[facility].edu/. Last address used for l[address]cnmjpu[address] [facility] Sex and Gender InformationValue Date RecordedSex Assigned at BirthNot on fileLegal VeaKkpr13/02/2012 9:35 AM ESTGender IdentityNot on fileSexual OrientationNot on file Last Filed Vital Signs Vital SignReadingTime TakenCommentsBlood Nkissdlr168/8811 3:05 PM EST Jjzmh475802/11/2025 10:33 AM VHKHvhbysabkdb74.6 ??C (97.9 ??F)03/10/2021 3:27 PM ESTRespiratory Rwfe6164 8:24 AM EDTOxygen Bpefzztbmy58%02/11/2025 10:33 AM EDTInhaled Oxygen Concentration--Yktead947.4 kg (250 lb)03/09/2025 3:05 PM MGILkozbb095.1 cm (6' 6 )02/11/2025 10:33 AM EDTBody Mass Index28.8902/11/2025 10:33 AM EDT Plan of Treatment DateTypeDepartmentCare Team (Latest Contact Info)Abxdccyzder12/18/2026 11:30 AM ESTOffice Visit [facility] [address] [place] [address] Zev Hudson MD [address] [place] [address] Parkinson'sHealth MaintenanceDue DateLast DoneCommentsAbdominal Aortic Aneurysm Vqfbygvux36/30/1954Annual PCP Team Chronic Disease Visit1971Anxiety Frvxcvgnw83/30/1972Depression Gicmyktgg67/30/1972Hepatitis C Yytlsrhnd34/30/1972 CT Fpggkpdmbkov64/30/1999Cologuard (FIT-DNA)05/21/19982377Kvybeudmewx85/30/1999 Colorectal Cancer Mxfwseitj85/30/1999Fecal Occult Blood1998Sigmoidoscopy 1998Pneumococcal Vaccine: 50+ (1 of 1 - PCV)2003Shingrix Vaccine (1 of 2)2003Medicare Annual Wellness Visit04/22/2018LDL Ihhpokqmkpg17/12/2023 01/01/2022TaP,Tdap,Td Vaccine (2 - Td or Tdap)dvance Directive Csmsowqlop35/01/2025Covid-19 Vaccine ( - season)2024 04/10/2021, 07/15/2020, 06/17/2020Influenza Vaccine (#1)/11/2015 Hemoglobin/Axjkgjtwrj76/18/202512/, 01/28/2024, 01/27/2024, Additional history existsSerum Fmgmjtyvwi54/20/202512/, 04/09/2024, 04/08/2024, Additional history existsLipid Ehhkdcvqv72/2Diabetes Screening /, 04/09/2024, 04/08/2024, Additional history existsRSV Vaccine (1 - 1-dose 75+ series)2028 Medical Devices ImplantedTypeAreaManufacturerDevice IdentifierShelf Expiration DateModel / Serial / LotSleeve 2.4mm 1.5mm Silicone 30mm Scleral Round Sterile - [id number] [facility]: EyeLABTICIAN OPHTHALMICS [id number] / / [id number] Silicone 243w9d1si Retinal 9229 Sterile - [id number] Implanted:Qty: 1 [facility]15/2017 [facility]plantLeft: EyeLABTICIAN OPHTHALMICS INC05/22/2022S 4050 / [id number] / Gas Ispan Constellation Intraocular Vision System C3f8 125gm - [id number] Implanted:Qty: 1 [facility]15/2017 [facility]: EyeALCON LABS [id number]/30/[id number] / / [id number] Iol Ultrasert 16 - [id number] Implanted:Qty: 1 on 10/15/2017 [facility]Intraocular LensLeft: EyeALCON LABS ZFPFPNAO94/31/[id number] / [id number] / Procedures Procedure NamePriorityDate/TimeAssociated DiagnosisCommentsEMG(NEURO/NI)Routine 03/09/2025 1:59 PM EST Ptosis of right eyelid Dysarthria XR OUTSIDE CD DICOM GOGYWM7301/29/2025 NM OUTSIDE CD DICOM PROWBH3601/29/2025 COMPLETE BLOOD ZVIMKDUFH85/19/2021 12:30 PM EST BASIC METABOLIC OJHBWJEJS75/19/2021 12:30 PM EST from Last 3 Months or Most Recently Relevant to Health Maintenance Results * EMG(NEURO/NI) (03/09/2025 1:59 PM EST)Specimen (Source)Anatomical Location / LateralityCollection Method / VolumeCollection TimeReceived Time03/09/2025 1:59 PM EST [facility] - 03/09/2025 3:48 PM EST Results can be seen in attached scanned documents. If you are a patient reviewing this test result, call the doctor who ordered the test with any questions. Authorizing ProviderResult TypeResult StatusKatdeshaun Bravo GROUND OPERATIONS SUPERVISOR.CNPNEUROLOGY Final ResultPerforming OrganizationAddressCity/State/ZIP CodePhone Number [facility] * OT-NM brain spect datscan IMPORT (01/29/2025)Anatomical RegionLaterality ModalityOtherSpecimen (Source)Anatomical Location / LateralityCollection Method / VolumeCollection TimeReceived Time01/29/2025 Narrative 02/02/2025 12:43 AM EDT Images were obtained outside of [facility] Procedure Note Provider, [facility] [place] - 02/02/2025 Images were obtained outside of [facility] Authorizing ProviderResult TypeResult StatusCcf ProviderRADIOLOGYFinal Result * SR-NM brain spect datscan IMPORT (01/29/2025)Anatomical RegionLaterality ModalityOtherSpecimen (Source)Anatomical Location / LateralityCollection Method / VolumeCollection TimeReceived Time01/29/2025 Narrative 01/31/2025 1:11 PM EDT Images were obtained outside of [facility] Procedure Note Provider, [facility] [place] - 01/31/2025 Images were obtained outside of [facility] Authorizing ProviderResult TypeResult StatusCcf ProviderRADIOLOGYFinal Result * CBC (03/10/2021 12:30 PM EST)ComponentValueRef RangeTest MethodAnalysis Time Performed AtPathologist SignatureWBC6.713.70 - 11.00 k/uL03/10/2021 1:13 PM ESTWadsworth-[facility]man Hospital LaboratoriesRBC4.964.20 - 6.00 m/uL03/10/2021 1:13 PM EST [facility] ZtewkhdnxsgcJntfdsmxhv64.213.0 - 17.0 g/dL03/10/2021 1:13 PM ESTRegional Medical CenterHematocrit41.239.0 - 51.0 %03/10/2021 1:13 PM ESTRegional Medical CenterMCV83.180.0 - 100.0 fL03/10/2021 1:13 PM EST [facility] CenterMCH26.626.0 - 34.0 pG03/10/2021 1:13 PM EST [facility] CenterMCHC32.030.5 - 36.0 g/dL03/10/2021 1:13 PM EST [facility] CenterRDW-CV14.611.5 - 15.0 %03/10/2021 1:13 PM EST [facility] LaboratoriesPlatelet Lnutl359226 - 400 k/uL03/10/2021 1:13 PM [facility] KxokpcrsqxgjBZI23.19.0 - 12.7 fL03/10/2021 1:13 PM EST [facility] LaboratoriesAbsolute nRBC<0.01<0.01 k/uL03/10/2021 1:13 PM [facility] LaboratoriesSpecimen (Source)Anatomical Location / LateralityCollection Method / VolumeCollection TimeReceived TimeWHOLE BLOOD SPECIMEN / Fwsozoe4603/10/2021 12:30 PM EST03/10/2021 1:02 PM EST Narrative Authorizing ProviderResult TypeResult StatusClaire Luis Briones MDLABORATORY Final ResultPerforming OrganizationAddressCity/State/ZIP CodePhone Number [facility] [address] [facility] [place] [place] [address] [facility] [address] [place] [address] * (ABNORMAL) BASIC METABOLIC PNL (03/10/2021 12:30 PM EST)ComponentValueRef RangeTest MethodAnalysis TimePerformed AtPathologist CqhahnsvwRtmtcog2406 - 99 mg/dL03/10/2021 1:26 PM [facility] HospitalComment: The [place] Diabetes Association (ADA) provides guidance for cutoff [...] Standards of Medical Care in Diabetes 2016, [place] [employer] Association. Diabetes Care. 2016.39(Suppl 1). CUN479 - 24 mg/dL03/10/2021 1:26 PM [facility] LaboratoriesCreatinine 1.40(H)0.73 - 1.22 mg/dL03/10/2021 1:26 PM [facility] Wgsabq109507 - 144 mmol/L105/10/2020 1:26 PM [facility] Potassium4.03.7 - 5.1 mmol/L105/10/2020 1:26 PM [facility] Oqqilkoe19712 - 105 mmol/L105/10/2020 1:26 PM [facility] LaboratoriesCO2 2322 - 30 mmol/L105/10/2020 1:26 PM [facility] LaboratoriesAnion Htr161 - 18 mmol/L105/10/2020 1:26 PM [facility] LaboratoriesCalcium7.9(L)8.5 - 10.2 mg/dL03/10/2021 1:26 PM [facility] LaboratorieseGFR->6003/10/2021 1:26 PM [facility] LaboratoriesComment: Note: On 06/17/2021, the eGFR calculation will be updated to the NKF-ASN Task Force recommended 2020 CKD-EPI creatinine equation which does not include a race variable. For more information or to access a 2020 CKD-EPI calculator, visit the National Kidney Foundation website at kidney.org/professionals/kdoqi/gfr_calculator. eGFR-All Other Races51.03/10/2021 1:26 PM [facility] Comment: eGFR (Estimated GFR) Units [...] Method / Volume Collection TimeReceived TimeOTHER / Rgzxkok9303/10/2021 12:30 PM EST03/10/2021 1:02 PM EST Narrative Authorizing ProviderResult TypeResult StatusClaire Luis Briones MDLABORATORY Final ResultPerforming OrganizationAddressCity/State/ZIP CodePhone Number [facility] [address] [place] [address] [facility] [address] [place] [address] from Last 3 Months or Most Recently Relevant to Health Maintenance Insurance Care Teams Team MemberRelationshipSpecialtyStart Date Radha Newton MD [address] [place] [address] PCP - GeneralFamily Medicine10/09/17 Elian Ceballos MD [address] [place] [address] Primary Staff PhysicianCardiology12/01/20 Herminia Roland MD [address] [place] [address] Primary Staff HjmjpusihHkyfgdhoij69/13/21
--- OUTSIDE RECORDS SUMMARY | 2025-04-06 08:44 | XMS_ITS | Clinical Summary ---
Author Organization [facility] Healthcare Address [address] [place] [address] Care Team Providers Care Computer Systems Security Administrator Name Role Phone Radha Burris MD Primary Care Provider [phone] Abdirahman Pina DO Unavailable [phone] Allergies Active AllergyReactionsCriticalityNoted DateCommentsDofetilideDizziness,Unknown 08/24/2021 Unable to speak aphasia Aphasia, dizzy, muscle cramps PenicillinsUnknown,Other09/12/2000 As a child VancomycinAnaphylaxis,Itching,NgphWlnb88/16/2022 Itching hands/feet Medications MedicationSigDispense QuantityRefillsLast FilledStart DateEnd [...] tablet Take 84 mg by mouth DailyActive ergocalciferol (Vitamin D2) 1.25 MG (71391 UT) capsule Indications:HypocalcemiaTake 1 capsule by mouth once a week 12 capsule 5Active levothyroxine (Synthroid) 175 MCG tablet Indications:Acquired hypothyroidismTake 1 tablet (175 mcg) by mouth 3 (three) times a week Take on an empty stomach 36 tablet 5Active calcitriol (Rocaltrol) 0.25 MCG capsule Indications:HypocalcemiaTake 1 capsule by mouth once daily 90 capsule 5Active droxidopa (Northera) 100 MG capsule Take 200 mg by mouth in the morning and 200 mg at noon and 200 mg in the evening.5Active levothyroxine (Synthroid, Levoxyl) 150 MCG tablet Indications:Acquired hypothyroidismTAKE 1 TABLET BY MOUTH 4 TIMES A WEEK ON AN EMPTY STOMACH 48 tablet 5Active levothyroxine (Synthroid, Levoxyl) 150 MCG tablet Indications:Acquired hypothyroidismTAKE 1 TABLET BY MOUTH FOUR TIMES A WEEK TAKE ON AN EMPTY STOMACH 48 tablet Discontinued Active Problems ProblemNoted DateDiagnosed DateHistory of excision of intestinal structure 01/14/2025POTS (postural orthostatic tachycardia syndrome)01/27/2024neurysm of ascending aorta without nbkedwd7207/18/2023Syncope and efaqoqpb65/28/2024Sick sinus txwckinq02/26/2024cute blood loss zdyarr1305/21/2023araesophageal hernia 05/21/20236319Ameekof96/11/2023Bilateral partial vocal cord pyqjewyxo58/11/2023 Muscle cgtodr3201/30/2023H/O cardiac radiofrequency uygtfgxo24/04/2023 Wtzmeouzibqkghp34/10/2023alculus of xddhyi6310/29/2022Injury of head10/29/2022 Tension lrjyrkrj37/10/2023resence of Watchman left atrial appendage closure vpxrxz5010/19/2022 Overview (10/29/2022): Last Assessment & Plan: CHANTELLE from 04/10/2022 showing watchman implant in good position, no device leak noted and no thrombosis Zadekih0910/01/2022etached retina, right10/01/2022uodenal jckyvzfcjicr56/12/2023 Qlmbhsmvg11/12/2023History of total ojbgxvukwmqeg08/12/2023Hypoparathyroidism after wclfxyukb97/12/2023Idiopathic chronic gout of foot without tophus 10/01/2022Intractable chronic migraine without aura10/01/2022Nephrolithiasis 10/01/2022Osteoarthritis of left hand10/01/2022Other headache ygchjcug28/12/2023 Trigger point with neck pain10/01/2022ain in right elbow10/01/2022aresthesia of bilateral legs10/01/2022SVT (supraventricular tachycardia)10/01/2022 Unspecified atrial oimocrlrgyxx68/12/2023Seroma of circulatory system after non- circulatory system izjslkcnv90/12/2023Stage 3b chronic kidney nmfhxeb1910/01/2022 Status post right knee wpuxadakoqi06/12/2023Substernal ztxkgs3910/01/2022 Kownaqellwl51/12/2023Transient ischemic qqdxun6010/01/2022hronic migraine without aura, with intractable migraine, so stated, with status cardwafsonr90/09/2023 Benign prostatic hyperplasia with urinary pegwrwslvpr26/10/2023Hydronephrosis 05/01/2022Low back pain05/01/2022Multifocal atrial svlyudhbfix95/10/2023Nocturia 05/01/2022ost-void gbbuhkkmm28/10/2023History of anesthesia complications 04/25/2022cquired tqditiciybmgmr35/15/2022 Overview (10/01/2022): Pt is on synthroid after removal of thyroid for goiter Assessment & Plan (01/14/2025 11:05 AM EDT): Rwoghkbgplmbjr79/15/2022 Overview (10/29/2022): Pt is on synthroid after removal of thyroid for goiter Implantable loop recorder /08/2022Recurrent falls02/05/2022 Pancreatitis, gallstone ([facility])02/05/2022Metabolic /14/2022 Idiopathic acute pancreatitis without infection or necrosis ([facility]-H[facility])01/02/2022 Calculus of qhzvzjpgnea62/13/6898Xdrpv82/12/2022History of kidney stones 01/01/2022History of peptic ulcer01/01/2022 Overview (10/01/2022): S/p egd at [facility] 08/2020 Formattingof this note might be different from the original. S/p egd at [facility] 08/2020 History of TIA (transient ischemic attack)01/01/20222760Ysouruwfhycel18/12/2022 Bihzhqom26/12/2022Lactic acid bjbqanlu54/12/2022KI (acute kidney injury) 01/01/2022Non-intractable vomiting with akohcz9901/01/2022KD (chronic kidney disease) stage 3, GFR 30-59 ml/min01/01/2022cute pancreatitis ([facility]) 12/31/2021Gallstone pancreatitis ([facility]-HCC)12/31/2021aroxysmal atrial qmljexqcgfpj13/09/2022 Overview (10/01/2022): Added automatically from request for surgery 1650 Assessment & Plan (02/06/2024 10:46 AM EDT): Now back in sinus. Chest pain01/24/2021trial tpkyiotvpqwy89/06/2021upraventricular tachycardia 12/26/2020rteriosclerosis of coronary ydpfnz4412/14/2020 Overview (10/01/2022): - reported 60% stenosis - further details unknown GERD (gastroesophageal reflux disease)12/14/2020 Overview (10/01/2022): - chronic - receiving home protonix, sucralfate Atrial ycncchz1612/14/2020 Overview (10/01/2022): - S/p CTI ablation 11/2019- [facility] nputzccgxkuh89/25/2021 Overview (10/01/2022): - chronic, stable - continue home Benazepril, norvasc Thyroid sxxukxb5712/14/2020 Overview (10/01/2022): - chronic, stable - home [...] 60% stenosis - further details unknown Meniere rpbnqzb3711/15/2020bnormal laboratory test ndfqvu0409/14/2020Vitamin B12 deficiency (non anemic)09/13/2020Vitamin B6 aeyssfdlmk06/25/2021typical angina 09/06/20202037Abxoedtusvoper41/18/2021ngina at rest09/06/2020iverticulosis of small aruskhhnl77/02/2212Jtywghcd04/19/0854Feqghoznkwjshg37/09/2020OSA (obstructive sleep apnea)03/01/2020 Overview (10/01/2022): -chronic, on CPAP at home -stable - Continue CPAP while in hospital -chronic, on CPAP at home -stable -Continue CPAP while in hospital Whgsltnu59/10/2020Refractory migraine without aura105/01/2019Neck pain03/01/2020 Atypical geajneza14/09/2020Expressive ziheqbw0401/23/2020Persistent atrial enmuycbtjdkz45/24/2020 Overview (10/01/2022): - Chronic - stable - [...] creatinine clearance: 68.2 mL/min (A) Tension type urwokesn06/16/2020Atrial cecpwteuov27/28/2020Esophageal dysmotility 11/21/2019 Overview (10/01/2022): - chronic - receiving home protonix, sucralfate Stage 3 chronic kidney sizommj2411/17/2019Skin sensation lmtkkifkywj81/07/2020 Migraine without aura, not qrikmgrilq98/25/2020Abnormal vofdqwdygy22/10/2019 History of endocrine /17/6923Mkxtfxqkelrp13/12/2019Hypoparathyroidism 10/01/20183330Zbqdynanor40/28/2019Shortness of ubjfdo1309/16/2018Vocal cord palsy 09/16/20184647Unqjcfjkmiw57/28/2019Difficulty swallowing pxcijg9209/03/2018Left ventricular /14/2019Disorder of autonomic nervous jousvi1803/29/2018 Ocular kkxtoxli58/28/2018Artificial knee joint oqisasq1411/09/2017Serous retinal zlfoeubpkd53/21/2018 Overview (10/01/2022): Added automatically from request for surgery [id number] Added automatically from request for surgery [id number] Added automatically from request for surgery [id number] Added automatically from request for surgery [id number] Nuclear sclerotic cataract, left10/07/2017 Overview (10/01/2022): Added automatically from request for surgery [id number] Added automatically from request for surgery [id number] Added automatically from request for surgery [id number] Added automatically from request for surgery [id number] Total retinal detachment of left eye10/07/2017 Overview (10/01/2022): Added automatically from request for surgery [id number] Added automatically from request for surgery [id number] Added automatically from request for surgery [id number] Formatting of thi s note might be different from the original. Added automatically from request for surgery [id number] Retinal detachment, left10/07/2017 Overview (10/29/2022): Added automatically from request for surgery [id number] Gout05/20/2017Restless legs refbczfl83/17/2017 Overview (10/01/2022): - chronic - continue home mirapex - chronic - continue home mirapex Vitamin D nbdgqienmz25/17/2017Chronic gouty pnrsqioqw33/15/2016History of acute renal xdvbhxh7402/04/2016Headache emxaqavd98/15/2016Arthralgia of upper arm 12/28/2015Localized, primary osteoarthritis of elbow12/18/2015Acute gastric ulcer06/23/2015Acute renal failure oxymuecu56/03/3337Ywbrumcncvx49/03/2016 Essential ppcbppbivusf10/06/2016 Overview (10/29/2022): Last Assessment & Plan: Hypertension is well controlled continue current med regime Resolved Problems ProblemNoted DateDiagnosed DateResolved DateAcquired absence of other specified parts of digestive tractNoninfective gastroenteritis and colitis, rlklasgekpg44bnormal ECG/hronic kidney Overview (10/01/2022): stage 3 b - baseline Cr unknown CKD (chronic kidney disease)/ Overview (10/29/2022): - baseline Cr unknown Obstructive sleep apnea psigsvte49HTN (hypertension)11/17/2019 06/09/2024Restless leg Overview (10/29/2022): - chronic - continue home mirapex - chronic - continue home mirapex Encounters DateTypeDepartmentCare HklyDltwdxfbpek20/05/2025Refill [facility] [address] [place] [address] Sara Odom NP Acquired fspbtciiszpgls01/05/2025Results Follow-Up [facility] [address] [place] [phone] Andressa Alvares NP TSH5Clinisync Result Encounter [facility] External Department Unsolicited Provider, Generic External Data 03/25/2025linisync Result Encounter [facility] External Department Unsolicited Provider, Generic External Data 03/22/2025[facility] [address] [place] [address] Harleen Martinez, CARLOS 02/19/2025[facility] [address] [place] [address] Harleen Martinez, CARLOS 01/26/2025Refill [facility] [address] [place] [address] Latoya Redding MD Dsfknxmaqvdb80/25/2025 10:20 AM EDTOffice Visit [facility] [address] [place] [phone] Radha Burris MD Dizziness (Primary Dx); Pain in both lower extremities; Acquired aekbmyxhagiabt35/25/2025amboo flowsheet [facility] [address] [place] [phone] Radha Burris MD 01/14/20257262Okuekz70/22/2025Patient Outreach [facility] [address] [place] [address] Harleen Martinez, CARLOS 01/07/2025Travelfrom Last 3 Months Immunizations ImmunizationAdministration DatesNext DueInfluenza, injectable, quadrivalent, preservative free01/28/2016Moderna SARS-CoV-2 Gevjbetrbfb77/25/2021,06/16/2020 Tdap1 Family History Medical HistoryRelationNameCommentsNo Known ProblemsBrotherAneurysmFatherFred CancerFatherFredHypertensionFatherFredLung cancerFatherFredCancerMotherSue HypertensionMotherSueLung cancerMotherSueStrokeMotherSueRelationNameStatus CommentsBrotherDaughterAliveFatherFredDeceasedMotherSueDeceasedSonAlive Social History Tobacco UseTypesPacks/DayYears UsedDateSmoking Tobacco: FormerCigarettes1.514 04/22/1969 - 1983PipeCigarsSmokeless Tobacco: Never Tobacco Cessation:Counseling Given: Not Answered Comments:Last smoked:>20 years ago Alcohol UseStandard Drinks/WeekCommentsYes0 (1 standard drink = 0.6 oz pure alcohol)Caffeine intake: 1 cups per day of xewhffO3558 Health LiteracyAnswerDate RecordedHow often do you need [...] times a week12/17/2023How often do you attend restoration or buddhist services?Never12/17/2023o you belong to any clubs or organizations such as restoration groups, unions, fraternal or athletic groups, or school groups?No12/17/2023How often do you attend meetings of the clubs or organizations you belong to?Never12/17/2023re you , , , , never , or living with a partner?Qtqioxy6312/17/2023 AUDIT-CAnswerDate RecordedQ1: How often do you have [...] heating?Not very hard12/17/2023HQ-2Answer Date RecordedPatient Health Questionnaire-2 [facility]zap091[facility] - Occupational Stress QuestionnaireAnswerDate [...] steady place to sleep or slept in ashelter (including now)?No10/01/2022Housing Stability Vital SignAnswerDate RecordedIn the last 12 months, was there a time when you were not able to pay the mortgage or rent on time?No12/17/2023Number of Times Moved in the Last Year Not on file12/17/2023t any time in the past 12 months, were you homeless or living in a nursing home (including now)?No12/17/2023Sex and Gender InformationValue Date RecordedSex Assigned at BirthNot on fileLegal YqoPuee2107/04/2022 7:10 PM EDT Gender KxlzkxdmHiyh17/15/2023 7:10 PM EDTSexual OrientationNot on file Last Filed Vital Signs Vital SignReadingTime TakenCommentsBlood Ikkmqbas502/80001/14/2025 10:13 AM EDT Txbcm1003/25/2025 10:13 AM HAGJwjubmutvrt68.2 ??C (98.9 ??F)09/02/2024 2:53 PM EDTRespiratory Yraf821808/10/2024 9:48 AM EDTOxygen Niwlcvirvk77%01/14/2025 10:13 AM EDTInhaled Oxygen Concentration--Pyleco303 kg (261 lb 6.4 oz)01/14/2025 10:13 AM OVKVlgbvn854.1 cm (6' 6 )01/14/2025 10:13 AM EDTBody Mass Index30.21 01/14/2025 10:13 AM EDT Plan of Treatment Health MaintenanceDue DateLast DoneCommentsCT Ujlfcrshwewl62/30/1954FIT-DNA 1955FIT1955FOBT1955 3645Bzxqkhfjextvv30/30/1954OVID-19 Vaccine ( season), 07/15/2020, 07/14/2020, Additional history existsPneumococcal Vaccine: 65+ Years (1 of 2 - PCV)06/04/2025Postponed from 1972 (Patient Refused)Influenza Vaccine (#1)61 Postponed from 12/21/2024 (Patient Refused)Xjorkxcldsr17/27/354434/, 04/16/2023, 04/16/2023olorectal Cancer Indpayuvh38/27/2034 Procedures Procedure NamePriorityDate/TimeAssociated DiagnosisCommentsCA ECHO DOPPLER TJBJTMRO99/04/2025 9:01 PM EST WQZPkpdvjy18/04/2025 11:23 AM EST Acquired hypothyroidism VASC US ABDOMINAL AORTA ANUERYSM AAA JWXHKMLAH90/04/2025 9:37 AM EST HM XYUVEPVCQZIVnucaet48/27/2024 7:01 PM ESTfrom Last 3 Months or Most Recently Relevant to Health Maintenance Results * CA ECHO DOPPLER COMPLETE (03/25/2025 9:01 PM EST)Anatomical RegionLaterality ModalityOtherSpecimen (Source)Anatomical Location / LateralityCollection Method / VolumeCollection TimeReceived Time03/25/2025 9:01 PM EST Narrative 03/25/2025 9:02 PM EST [facility] ?[address] ? [place] [address] ? Cardiology Report ? Signed ? Patient: EVERARDO ARNOLD Jr. ?MR#: [id number] ?? : 1955 ?Acct:[id number] ?? Age/Sex: 69 / M ?ADM Date: 03/25/25 ?? Loc: US ? Attending Dr: YANDEL BURKS APRN ? Ordering Physician: YANDEL BURKS APRN ?? Date of Service: 03/25/25 ?? Procedure(s): CA echo doppler complete ?? Accession Number(s): [id number] ? cc: RADHA BURRIS ; YANDEL BURKS APRN ? Patient Name: ? EVERARDO ARNOLD ? MR#: [id number] ? : 1955 ? Exam Date: 03/25/2025 ?? Ordering Doctor: YANDEL BURKS HOUSEKEEPING AID ? ECHOCARDIOGRAM REPORT ? PROCEDURE: ? CA ECHO DOPPLER COMPLETE ? INDICATIONS: ? Aneurysm of ascending aorta without rupture, pacemaker ? COMPARISON: ? None. ? DESCRIPTION: ? COMPLETE ECHOCARDIOGRAM Real-time transthoracic ?? echocardiography with 2D, M-mode, spectral and color flow Doppler performed. ? QUALITY: ? Technical quality was good. ? LEFT VENTRICLE: ? Normal chamber size. Mild concentric left ventricular ?? hypertrophy. ??Systolic function is normal. ??Estimated left ventricular ?? ejection fraction is 65%. ?? LV EF: Normal left ventricular ejection fraction, (>55%). DIASTOLIC: ? Normal diastolic function. ?? ATRIAL SEPTUM: ? Visually appears intact. ?? LEFT ATRIUM: ? Normal chamber size. ?? RIGHT ATRIUM: ? Normal chamber size. ?? RIGHT VENTRICLE: ? Normal chamber size. ??Systolic function is normal. ? Pacer wire present. ?? TRICUSPID VALVE: ? Normal mobility and thickness. No stenosis with trivial ?? regurgitation. No evidence of pulmonary hypertension. RVSP 25 mmHg ? MITRAL VALVE: ? Normal mobility and thickness. ?? No evidence of mitral valve ?? stenosis. ??There is no mitral annular calcification. Trivial mitral ?? regurgitation. ? AORTIC VALVE: ? Normal trileaflet appearance. No visible sclerosis. ??Normal ?? leaflet mobility. ??No evidence of aortic valve stenosis. No aortic ?? regurgitation. ? AORTIC ROOT: ? Upper normal diameter and appearance, measuring 4.0 cm. ?? Ascending aorta is mildly dilated (4.2 cm). Aortic arch is normal in size. ? PULMONIC VALVE: ? Normal thickness and mobility. No stenosis. Trivial ?? regurgitation. ? PERICARDIUM: ? No evidence of pericardial effusion. ? IVC: ? Collapses with inspiration. ? PLEURA: ? CONCLUSION: ? 1. Mild concentric left ventricular hypertrophy with normal systolic function. ?? LVEF is estimated at 65%. ?? 2. Normal right ventricular size and systolic function. ?? 3. Normal diastolic function. ?? 4. No significant valvular dysfunction. ?? 5. Mildly dilated ascending aorta measuring 4.2 cm. ?? 6. Normal right-sided pressures. ? Adult Echocardiography Procedure Report ?? Left Ventricle ?? LVEDD (3.7 - 5.6 cm): ? 4.68 cm ?? LVESD (2.2 - 4.0 cm): ? 3.17 cm ?? LVIVS thickness (0.6 - 1.2 cm): ? 1.18 cm ?? LVPW thickness (0.5 - 1.0 cm): ? 1.18 cm ?? e': ? 0.07 m/s ?? E - e': ? 7.94 ?? LVOT Max Gradient: ? 2.42 mm[Hg] ?? LVOT Area (cm2): ? 0.78 m/s ?? Peak Velocity (LVOT): ? 0.78 m/s ?? Mean Velocity (LVOT): ? 0.47 m/s ?? LVOT Diameter ? 2.33 cm ?? Left Ventricular Ejection Fraction: ? 65 % ?? Left Atrium ?? LA Volume Index (2D A2C): ? 20.56 ml/m2 ?? Left Atrium Systolic Dimension: ? 4.74 cm ?? Mitral Valve ?? MV E to A Ratio: ? 1.17 ?? Mitral Valve A-Wave Peak Velocity: ? 0.46 m/s ?? Mitral Valve E-Wave Peak Velocity: ? 0.54 m/s ?? Right Ventricle ?? Aorta ?? AO Root Diam: ? 4.31 cm ?? Aortic Valve ?? AoV Area (Peak Andrey): ? 4.24 cm2, 4.24 cm2 ?? AoV Area (VTI): ? 4.45 cm2, 4.45 cm2 ?? Peak Velocity(Antegrade Flow): ? 0.78 m/s ?? Peak Gradient(Antegrade Flow): ? 2.46 mm[Hg] ?? Mean Velocity(Antegrade Flow): ? 0.47 m/s ?? Mean Gradient(Antegrade Flow): ? 1.09 mm[Hg] ?? Velocity Time Integral: ? 16.19 cm ?? Tricuspid Valve ?? Peak Velocity (Regurgitant Flow): ? 2.34 m/s, 2.22 m/s ?? Pulmonic Valve ?? Mean Gradient: ? 1.63 mm[Hg] ?? Mean Velocity: ? 0.60 m/s ?? Peak Velocity: ? 0.89 m/s ?? Peak Gradient: ? 3.16 mm[Hg] ?? Right Atrium ? Dictated by: Guru Christie M.D. on 03/25/2025 at 20:55 ? Approved by: Guru Christie M.D. on 03/25/2025 at 21:00 ? Dictated By: ?GURU CHRISTIE ? Signed By: ?03/25/252101 ? DD/ 2101 ? TD/TT: ? Signals Intelligence Analyst: Procedure Note Radiology, Radiologist, - 03/25/2025 [place] [address] Cardiology Report Signed Patient: EVERARDO ARNOLD Jr.MR#: [id number] : 1955cct:[id number] Age/Sex: 69 / MADM Date: 03/25/25 Loc: Attending Dr: YANDEL BURKS APRN Ordering Physician: YANDEL BURKS APRN Date of Service: 03/25/25 Procedure(s): CA echo doppler complete Accession Number(s): [id number] cc: RADHA BURRIS ; YANDEL BURKS APRN Patient Name: EVERARDO ARNOLD MR#: [id number] : 1955 Exam Date: 03/25/2025 Ordering Doctor: YANDEL BURKS CNP ECHOCARDIOGRAM REPORT PROCEDURE: CA ECHO DOPPLER COMPLETE INDICATIONS: Aneurysm of ascending aorta without rupture, pacemaker COMPARISON: None. DESCRIPTION: COMPLETE ECHOCARDIOGRAM Real-time transthoracic echocardiography with 2D, M-mode, spectral and color flow Dopplerperformed. QUALITY: Technical quality was good. LEFT VENTRICLE: Normal chamber size. Mild concentric left ventricular hypertrophy. Systolic function is normal. Estimated left ventricular ejection fraction is 65%. LV EF: Normal left ventricular ejection fraction, (>55%). DIASTOLIC: Normal diastolic function. ATRIAL SEPTUM: Visually appears intact. LEFT ATRIUM: Normal chamber size. RIGHT ATRIUM: Normal chamber size. RIGHT VENTRICLE: Normal chamber size. Systolic function is normal. Pacer wire present. TRICUSPID VALVE: Normal mobility and thickness. No stenosis withtrivial regurgitation. No evidence of pulmonary hypertension. RVSP 25 mmHg MITRAL VALVE: Normal mobility and thickness. No evidence of mitralvalve stenosis. There is no mitral annular calcification. Trivial mitral regurgitation. AORTIC VALVE: Normal trileaflet appearance. No visible sclerosis.Normal leaflet mobility. No evidence of aortic valve stenosis. No aortic regurgitation. AORTIC ROOT: Upper normal diameter and appearance, measuring 4.0 cm. Ascending aorta is mildly dilated (4.2 cm). Aortic arch is normal in size. PULMONIC VALVE: Normal thickness and mobility. No stenosis. Trivial regurgitation. PERICARDIUM: No evidence of pericardial effusion. IVC: Collapses with inspiration. PLEURA: CONCLUSION: 1. Mild concentric left ventricular hypertrophy with normal systolicfunction. LVEF is estimated at 65%. 2. Normal right ventricular size and systolic function. 3. Normal diastolic function. 4. No significant valvular dysfunction. 5. Mildly dilated ascending aorta measuring 4.2 cm. 6. Normal right-sided pressures. Adult Echocardiography Procedure Report Left Ventricle LVEDD (3.7 - 5.6 cm): 4.68 cm LVESD (2.2 - 4.0 cm): 3.17 cm LVIVS thickness (0.6 - 1.2 cm): 1.18 cm LVPW thickness (0.5 - 1.0 cm): 1.18 cm e': 0.07 m/s E - e': 7.94 LVOT Max Gradient: 2.42 mm[Hg] LVOT Area (cm2): 0.78 m/s Peak Velocity (LVOT): 0.78 m/s Mean Velocity (LVOT): 0.47 m/s LVOT Diameter 2.33 cm Left Ventricular Ejection Fraction: 65 % Left Atrium LA Volume Index (2D A2C): 20.56 ml/m2 Left Atrium Systolic Dimension: 4.74 cm Mitral Valve MV E to A Ratio: 1.17 Mitral Valve A-Wave Peak Velocity: 0.46 m/s Mitral Valve E-Wave Peak Velocity: 0.54 m/s Right Ventricle Aorta AO Root Diam: 4.31 cm Aortic Valve AoV Area (Peak Andrey): 4.24 cm2, 4.24 cm2 AoV Area (VTI): 4.45 cm2, 4.45 cm2 Peak Velocity(Antegrade Flow): 0.78 m/s Peak Gradient(Antegrade Flow): 2.46 mm[Hg] Mean Velocity(Antegrade Flow): 0.47 m/s Mean Gradient(Antegrade Flow): 1.09 mm[Hg] Velocity Time Integral: 16.19 cm Tricuspid Valve Peak Velocity (Regurgitant Flow): 2.34 m/s, 2.22 m/s Pulmonic Valve Mean Gradient: 1.63 mm[Hg] Mean Velocity: 0.60 m/s Peak Velocity: 0.89 m/s Peak Gradient: 3.16 mm[Hg] Right Atrium Dictated by: Guru Christie M.D. on 03/25/2025 at 20:55 Approved by: Guru Christie M.D. on 03/25/2025 at 21:00 Dictated By: GURU CHRISTIE Signed By:03/25/252101 DD/ 00 TD/TT: Signals Intelligence Analyst: Authorizing ProviderResult TypeResult StatusGeneric External Data Provider CLINISYNC IMAGINGEdited Result - Final * TSH (03/25/2025 11:23 AM EST)ComponentValueRef RangeTest MethodAnalysis Time Performed AtPathologist SignatureTSH2.690.40 - 4.50 mIU/LQUESTSpecimen (Source)Anatomical Location / LateralityCollection Method / VolumeCollection TimeReceived TimeBloodVenous blood specimen / Rwodead1303/25/2025 11:23 AM EST 03/25/2025 11:23 AM EST Narrative Resulting Agency Comment Performing Organization Information ?Site ID: QPT ?Name: [facility] ?Address: [address] [place] [id number] ?Director: Janes Vasquez MD Authorizing ProviderResult TypeResult StatusSapetra Alvares [facility] BLOOD ORDERABLES Final ResultPerforming OrganizationAddressCity/State/ZIP CodePhone Number QUEST * Vascular US abdominal aorta anuerysm AAA screening (03/25/2025 9:37 AM EST) Anatomical RegionLateralityModalityAbdomenUltrasoundSpecimen (Source) Anatomical Location / LateralityCollection Method / VolumeCollection Time Received Time03/25/2025 9:37 AM EST Narrative 03/25/2025 9:40 AM EST [facility] ?[address] ? [place] [address] ? Ultrasound Report ? Signed ? Patient: EVERARDO ARNOLD Jr. ?MR#: [id number] ?? : 1955 ?Acct:[id number] ?? Age/Sex: 69 / M ?ADM Date: 03/25/25 ?? Loc: US ? Attending Dr: YANDEL BURKS APRN ? Ordering Physician: YANDEL BURKS APRN ?? Date of Service: 03/25/25 ?? Procedure(s): US abdominal aortic aneurysm ?? Accession Number(s): [id number] ? cc: RADHA BURRIS ; YANDEL BURKS APRN ? [facility] ? [address] [facility] ? [place] [address] ? Patient Name: ?? EVERARDO ARNOLD ? MRN: [facility]:[id number] ? date: 1955 ?Sex: M ?? Assigned Patient Location: ?? Current Patient Location: [place] ?? Accession/Order Number: [id number] ?? Exam Date: 03/25/2025 ??07:01 ?Report Date: 03/25/2025 ??09:37 ? At the request of: ?? YANDEL ??VITALIY ??BRENNA ? Procedure: ??US abdominal aortic aneurysm ? ULTRASOUND OF THE ABDOMINAL AORTA ? COMPARISON: CT 12/30/2021 ? CLINICAL DATA: History of aortic aneurysm ? Evaluation is limited due to body habitus and bowel gas. ??No aortic aneurysm ?? is identified. ??Proximally the aorta measures approximately 2.8 x 2.5 cm in ?? size. ??The midsegment, the aorta measures 2.1 x 1.9 cm. ??Distally, the aortic ?? diameter is estimated at 1.8 x 2.0 cm. ??At the bifurcation is visualized and ?? iliac arteries are normal caliber. ??No periaortic fluid is seen. ? US/US abdominal aortic aneurysm ?? IMPRESSION: ? NO ABDOMINAL AORTIC ANEURYSM ? Impression dictated by: Aide Banks M.D. ??03/25/2025 9:37 AM ? Dictation Location: [facility]--02 ? Electronically authenticated by: [id number] ??Y ?? Date: 03/25/2025 ??09:37 ? Dictated By: ?Aide Banks M.D. ? Signed By: ?03/25/2540 ? DD/ 0937 ? TD/TT: ? Signals Intelligence Analyst: Procedure Note Radiology, Radiologist, MD - 03/25/2025 [place] [address] Ultrasound Report Signed Patient: EVERARDO ARNOLD Jr.MR#: [id number] : 1955cct:[id number] Age/Sex: 69 / MADM Date: 03/25/25 Loc: US Attending Dr: YANDEL BURKS APRN Ordering Physician: YANDEL BURKS APRN Date of Service: 03/25/25 Procedure(s): US abdominal aortic aneurysm Accession Number(s): [id number] cc: RADHA BURRIS ; YANDEL BURKS APRN [facility] [place] [id number] Patient Name: EVERARDO ARNOLD MRN: [id number] date: 1955 Sex: M Assigned Patient Location: US Current Patient Location: [place] Accession/Order Number: [id number] Exam Date: 03/25/2025 07:01 Report Date: 03/25/2025 09:37 At the request of: YANDEL BURKS APRN Procedure: US abdominal aortic aneurysm ULTRASOUND OF THE ABDOMINAL AORTA COMPARISON: CT 12/30/2021 CLINICAL DATA: History of aortic aneurysm Evaluation is limited due to body habitus and bowel gas. No aorticaneurysm is identified. Proximally the aorta measures approximately 2.8 x 2.5 cmin size. The midsegment, the aorta measures 2.1 x 1.9 cm. Distally, theaortic diameter is estimated at 1.8 x 2.0 cm. At the bifurcation is visualizedand iliac arteries are normal caliber. No periaortic fluid is seen. US/US abdominal aortic aneurysm IMPRESSION: NO ABDOMINAL AORTIC ANEURYSM Impression dictated by: Aide Banks M.D. 03/25/2025 9:37 AM Dictation Location: [place] [address] Electronically authenticated by: [id number] Y Date: 9:37 Dictated By: Aide Banks M.D. Signed By:03/25/2540 DD/ 6 TD/TT: Signals Intelligence Analyst: Authorizing ProviderResult TypeResult StatusGeneric External Data ProviderIMG US PROCEDURESFinal Result * (ABNORMAL) Hm Colonoscopy (03/18/2024 7:01 PM EST)Anatomical RegionLaterality ModalityOther Narrative Authorizing ProviderResult TypeResult StatusJeishan Burris MDHEALTH MAINTENANCE Final Result from Last 3 Months or Most Recently Relevant to Health Maintenance Insurance Care Teams Team MemberRelationshipSpecialtyStart DateEnd Date Radha Burris MD [address] [place] [address] PCP - GeneralFamily Medicine09/20/22 Abdirahman Pina DO [address] [place] [address] Referring PhysicianNeurology06/22/24
--- OUTSIDE RECORDS SUMMARY | 2025-04-06 08:45 | XMS_ITS ---
Author Organization [facility] Address [address] [place] [address] Care Team Providers Care Environmental Department Manager Name Role Phone Radha Newton MD Primary Care Provider [phone] Abdirahman Pina DO Unavailable [phone] Emergency Department Transitional Care Management (TCM) Status:Closed (Closed) Start date:03/15/2025 Enrollment date:03/23/2025 Enrollment reason:Identified using discharge data End date:03/23/2025 Close reason:Actively enrolled in CCM Overview Discharged from [facility] ER on 03/15. Please contact within 2 days of discharge for ERTOC and schedule a follow-up appointment if needed. Continued Care and Services Coordination
--- OUTSIDE RECORDS SUMMARY | 2025-04-06 08:45 | XMS_ITS | Clinical Summary ---
Author Organization [facility] Address [address] [place] [address] Care Team Providers Care Records Management Coordinator Name Role Phone Radha Newton MD Primary Care Provider [phone] Allergies Active AllergyReactionsCriticalityNoted McbsBhbbphjqMmdkmraafphHxafs19/17/2022 As a child WxkujzppkqChqgx39/08/2022 aphasia TfdaqtjfmtVnhqosnAqu22/16/2022 Itching hands/feet Medications MedicationSigDispense QuantityRefillsLast FilledStart DateEnd DateStatus aspirin 81 mg chewable tablet Indications:Paroxysmal atrial fibrillation (CMS/HCC)Chew 1 tablet (81 mg) in the morning. Do not start before March 08, 2022. 30 tablet ctive levothyroxine (Synthroid, Levoxyl) 150 mcg tablet Take [...] a day.Active ergocalciferol (Vitamin D-2) 1.25 MG (65055 Units) capsule Take 1 capsule by mouth 1 (one) time per week.Active sotalol (Betapace) 120 mg tablet Indications:Paroxysmal atrial fibrillation (CMS/HCC)Take 1 tablet (120 mg) by mouth every 12 (twelve) hours. 180 tablet ctive calcitriol (Rocaltrol) 0.25 mcg capsule Take 0.25 mcg by mouth in the morning.Active droxidopa (Northera) 200 mg capsule Indications:Orthostatic hypotensionTake 1 capsule (200 mg) by mouth three times daily. 90 capsule tive droxidopa (Northera) 100 mg capsule Indications:Orthostatic hypotensionTake 1 capsule (100 mg) by mouth three times daily. 120 capsule Discontinued(Reorder) droxidopa (Northera) 200 mg capsule Indications:Orthostatic hypotensionTake 1 capsule (200 mg) by mouth three times daily. 90 capsule Discontinued(Reorder) Active Problems ProblemNoted DateDiagnosed ZpucDbauygsp15/26/2025Acquired absence of other specified parts of digestive tract01/19/2025Noninfective gastroenteritis and colitis, axoaxanivmz60/30/2025History of excision of intestinal structure 01/14/2025bnormal ECG04/08/2024OTS (postural orthostatic tachycardia syndrome) 01/27/2024trial fibrillation with RVR1oronary artery disease involving capitan grande coronary artery of capitan grande heart08/22/20238426Ewgphofyn59/28/2024 Syncope and /28/2024neurysm of ascending aorta without rupture 07/18/2023Sick sinus teroreaa96/26/2024cute blood loss rmaqmj9105/21/2023 2023araesophageal reubch14phasia1 Bilateral partial vocal cord jpggttpch20Muscle strain H/O cardiac radiofrequency xwlsemef92/11/2022 History of CVA (cerebrovascular accident)12/24/2022resence of Watchman left atrial appendage closure qbmgkn8110/19/2022 Assessment & Plan (10/19/2022 4:17 PM EDT): CHANTELLE from 04/10/2022 showing watchman implant in good position, no device leak noted and no thrombosis Tvreqci08Idiopathic chronic gout of foot without tophus Osteoarthritis of left handaresthesia of bilateral legsStatus post right knee replacement alculus of wsxgbx7710/01/2022Stage 3b chronic kidney disease 10/01/2022ost-void xvxpezvqt12/10/2023Multifocal atrial mzvdkpzuqqx43/10/2023 Pmhrxnig66/10/2023Low back pain05/01/20229013Raahazilnwcqbm16/10/2023enign prostatic hyperplasia with urinary trnafmmjtck41/10/2023History of anesthesia obmgubzbohhim82/04/1897Fdxeyyrykflldm67/15/2022 Overview (03/06/2022): Pt is on synthroid after removal of thyroid for goiter Implantable loop recorder jeubftd4102/27/2022Essential byvhmmjtasfj34/17/2022 Assessment & Plan (10/19/2022 4:15 PM EDT): Hypertension is well controlled continue current med regime Coronary artery disease involving capitan grande coronary artery of capitan grande heart without angina qoiqphja13/17/2022 Assessment & Plan (10/19/2022 4:15 PM EDT): Coronary artery disease is stable without concerning symptoms Continue GDMT continue risk factor modifications- heart healthy diet, regular exercise as tolerated and continue all medications. Recurrent falls02/05/2022History of TIA (transient ischemic attack)02/05/2022 Pancreatitis, jjjtepajq68/17/2022Metabolic rilzybay98/14/2022alculus of wuvpfzkdsgm36Non-intractable vomiting with dojqqf8201/01/2022 Lactic acid osmxagxj51/12/2361Wbgeunpx37/12/0363Hguptuktoscbg86/12/2022History of peptic ulcer01/01/2022 Overview (05/01/2022): S/p egd at [facility] 08/2020 History of kidney vwodfs5701/01/2022KI (acute kidney injury)01/01/2022pnea 01/01/2022-fib12/29/2021 Overview (12/29/2021): Added automatically from request for surgery [id number] Assessment & Plan (10/19/2022 4:16 PM EDT): This post watchman implantation with CHANTELLE reviewed from 04/10/2022 showed watchman implant in good position with no thrombosis and no device leak Is on aspirin daily and to [place] him for rate control History of total xeufhxmcrlxef08Meniere snwvezj7711/15/2020 Abnormal laboratory test fgrnwb8809/14/2020Vitamin B6 ewwrojotwb19/25/2021Vitamin B12 deficiency (non anemic)09/13/20206208Htghpnrxeaumcu71/18/2021hest pain 09/06/2020typical ruufsh3709/06/2020iverticulosis of small snhlequva20/02/2021 Qnnlyxyx75/19/8490Atylxowhpkocmb55/09/4612Bgxehscp13/10/2020OSA (obstructive sleep apnea)03/01/2020 Overview (05/01/2022): -chronic, on CPAP at home -stable -Continue CPAP while in hospital Chronic migraine without aura, with intractable migraine, so stated, with status juxaltjmooy98typical folpbkgi00/09/2020Expressive aphasia 01/23/2020Atrial wuutpvd0011/27/2019 Overview (04/28/2024): - S/p CTI ablation 11/2019- Edwards Esophageal yyceuvwfsoe41/01/2020 Overview (05/01/2022): - chronic - receiving home protonix, sucralfate Stage 3a chronic kidney hbdryvp1211/17/2019 Overview (03/17/2025): - baseline Cr unknown stage 3 b - baseline Cr unknown stage 3 b -baseline Cr unknown Skin sensation lccqpkzgeaj79/07/2020Abnormal rhzzdtwusv74/10/2019Postoperative iyoowo8510/01/20186548Tzuxbharekckugiaaw67/12/6807Yovxtoypyxqv42/12/2019Vocal cord palsy09/16/2018Shortness of hsjnot4709/16/20181917Tcthxewmdo60/28/2019Difficulty swallowing wfcpdf6109/03/2018Left ventricular tcswzichslw68/14/2019Disorder of autonomic nervous hahpxh9003/29/2018Ocular owqrnuyz77/28/2018Artificial knee joint civdnoc3111/09/2017Serous retinal ulppyjtuod00/21/2018 Overview (05/01/2022): Added automatically from request for surgery [id number] Added automatically from request for surgery [id number] Added automatically from request for surgery [id number] Added automatically from request for surgery [id number] Nuclear sclerotic cataract, left10/07/2017 Overview (05/01/2022): Added automatically from request for surgery [id number] Added automatically from request for surgery [id number] Total retinal detachment of left eye10/07/2017 Overview (04/28/2024): Added automatically from request for surgery [id number] Gout05/20/2017Vitamin D wxpwsjoefd06/17/2017Restless leg05/08/2016 Overview (05/01/2022): - chronic - continue home mirapex TIA (transient ischemic attack)02/04/2016 Overview (05/01/2022): TIA 2017 - Patient with visual disturbances,m aphasia eveing of 12/13 and morning of 12/14-- 2CLOT activated - CT head 12/13/2020- no acute findings - EEG today, headache cocktail and brain MRI - Neurology following Chronic gouty vxuwflxov25/15/2016History of acute renal pkzhpnl1002/04/2016 10/19/2022rthralgia of upper arm12/28/2015Localized, primary osteoarthritis of elbow12/18/20151943Ugzjbxogmvx58/03/2016Acute renal failure vebagpxe56/03/2016Acute gastric ulcer06/23/2015Chronic kidney disease Overview (04/25/2022): stage 3 b Encounters DateTypeDepartmentCare WkuoUzyswfsbttf11/15/2025Telephone [facility] [address] [place] [address] Andressa Cruz MA 04/02/2025Orders Only [facility] [address] [place] [address] Jazzy Rangel MA Edema, unspecified type (Primary Dx)04/01/2025 11:30 AM ESTOffice Visit [facility] [address] [place] [address] Iram Shen CNP Orthostatic hypotension (Primary Dx); Neurogenic orthostatic hypotension (CMS/HCC); Palpitations; Chronotropic incompetence with autonomic dysfunction; Near syncope; PERAZA (dyspnea on exertion); Aneurysm of ascending aorta without rupture; Paroxysmal atrial fibrillation (CMS/HCC); Coronary artery disease of capitan grande artery of capitan grande heart with stable angina pectoris; Sick sinus syndrome (CMS/HCC); Presence of Watchman left atrial appendage closure xezzty0003/29/2025Telephone [facility] [address] [place] [address] Herminia Johns MA 03/29/2025Telephone [facility] [address] [place] [address] Herminia Johns MA 03/29/2025Telephone [facility] [address] [place] [address] Herminia Johns MA 03/17/2025 11:00 AM ESTOffice Visit [facility] [address] [place] [address] Iram Shen CNP Aneurysm of ascending aorta without rupture (Primary Dx); Orthostatic dynqqmbdqbm67/25/2025Telephone [facility] Heart Station [address] [place] [address] Iram Shen CNP 02/17/2025Telephone [facility] [address] [place] [address] Elana Zhang LPN 02/05/2025 3:00 PM EDTAncillary Procedure [facility] [address] [place] [address] Adjustment and management of cardiac fnfwnemza62/17/2025Orders Only [facility] [place] [facility] [address] [place] [address] Perfecto Jordan MD 01/19/2025 3:00 PM EDTFollow-Up [facility] at [facility] [address] [place] [address] Iram Shen, NEETU Other chest pain (Primary Dx); Orthostatic hypotension; Coronary artery disease of capitan grande artery of capitan grande heart with stable angina pectoris; Sick sinus syndrome (CMS/HCC); Autonomic dysfunction; Paroxysmal atrial fibrillation (CMS/HCC); Presence of Watchman left atrial appendage closure device; Exertional angina; Pacemaker; Aneurysm of ascending aorta without rupture; Neurogenic orthostatic hypotension (CMS/HCC); Chronotropic incompetence with autonomic dysfunctionfrom Last 3 Months Family History Medical HistoryRelationNameCommentsAortic aneurysmFatherFredCancerFatherFred HypertensionFatherFredCancerMotherSueHypertensionMotherSueStrokeMotherSueAortic aneurysmPaternal GrandfatherSudden deathNeg HxRelationNameStatusCommentsFather FredAliveMotherSueAlivePaternal Grandfather Social History Tobacco UseTypesPacks/DayYears UsedDateSmoking Tobacco: AytknbYxeyoexexz394 1967 - 1983CigarsSmokeless Tobacco: FormerChewQuit: 1983 Tobacco Cessation:Counseling Given: No Alcohol UseStandard Drinks/WeekCommentsYes1 (1 standard drink = 0.6 oz pure alcohol)occasionalAHC UtilitiesAnswerDate RecordedIn the past 12 months has the [employer], gas, oil, or water [employer] threatened to shut off services in your home?No04/08/2024Overall Financial Resource Strain (CARDIA)AnswerDate Recorded How hard is it for you to pay for the very basics like food, housing, medical care, and heating?Not hard at all04/08/2024HQ-2AnswerDate RecordedPatient Health Questionnaire-2 Xjttj68806/02/2024Humiliation, Afraid, Rape, and Kick questionnaireAnswerDate RecordedWithin the [...] were you homeless or living in a detention (including now)? No04/08/2024Hunger Vital SignAnswerDate RecordedWithin the past 12 months, you worried that your food would run out before you got the money to buymore.Never true04/08/2024an Out of Food in the Last YearNot on file04/08/2024Sex and Gender InformationValueDate RecordedSex Assigned at CsrklVlti34/18/2024 5:12 PM ESTLegal WpnBcfo9710/18/2021 10:00 PM EDTGender RquyeordHtkz99/18/2024 5:12 PM EST Sexual OrientationChoose not to qbjadihv36/18/2024 5:12 PM EST Last Filed Vital Signs Vital SignReadingTime TakenCommentsBlood Ijsvdxwq190/7704/01/2025 11:37 AM EST Ezdvh606804/01/2025 11:37 AM PTWSpwebpoquto12.6 ??C (97.9 ??F)04/10/2024 8:27 AM ESTRespiratory Vmaz408206/11/2023 12:41 PM ESTOxygen Eqndvhhvdd30%03/17/2025 11:09 AM ESTInhaled Oxygen Concentration--Ddbnjw207 kg (272 lb 12.8 oz)04/01/2025 11:33 AM JSKRymrpq824.1 cm (6' 6 )04/01/2025 11:33 AM ESTBody Mass Index31.53 04/01/2025 11:33 AM EST Plan of Treatment DateTypeDepartmentCare Team (Latest Contact Info)Dtnirckqhiv40/03/2026 9:00 AM ESTOffice Visit [facility] [address] [place] [address] Iram Shen, SUPERVISOR LOCOMOTIVE [address] [place] [address] Health MaintenanceDue DateLast DoneCommentsCT Ghmkbjrvllpb00/30/1954Colonoscopy 4Colorectal Cancer Mulbjwxrf23/30/1954FIT-DNA1953FIT1955 FOBT1955Medicare Annual Wellness (AWV)1955 4067Yfmgmvprtbiur03/30/1956 Pneumococcal Vaccine: 50+ Years (1 of 2 - PCV)1972Zoster Vaccines (1 of 2) 2003Adult Evknyqi13COVID-19 Vaccine ( - season) /, 07/15/2020, 06/17/2020Influenza Vaccine (#1)2024 01/28/2016Depression Rjnucpvuq87Fall Risk Zkwtkrsph44/11/2026 04/01/2025HIB VaccinesAged OutNo longer eligible based on patient's age to complete this topicHPV VaccinesAged OutNo longer eligible based on patient's age to complete this topicIPV VaccinesAged OutNo longer eligible based on patient's age to complete this topicMeningococcal B VaccineAged OutNo longer eligible based on patient's age to complete this topicMeningococcal VaccineAged OutNo longer eligible based on patient's age to complete this topicRotavirus Vaccines Aged OutNo longer eligible based on patient's age to complete this topic Medical Devices ImplantedTypeAreaManufacturerDevice IdentifierShelf Expiration DateModel / Serial / LotClosure,Flx,Watchmorenita,Carey,24mm - [id number] - [id number] Implanted:Qty: 1 on 03/06/2022 by Mono Santana [facility]Device[facility] [id number] / [id number] / [id number]: pt has a Watchman FLX device and Cube Route Lux-Dx loop recorder- model M301- conditional for 3T and 1.5- most restrictive requirements 2500 G/cm- normal op mode- whole body GOOD 2 W/kg- LK 06/13/[id number] Implanted:11/09/2021 (Quantity not on file)Implantable Loop CucxakadUolvrY801 / [id number] / Description: pt has a Watchman FLX device and Cube Route Lux-Dx loop recorder- model M301- conditional for 3T and 1.5- most restrictive requirements 2500 G/cm- normal op mode- whole body GOOD 2 W/kg- LK 06/13/22Lead,Solia,S 60, - [id number] - [id number] Implanted:Qty: 1 on 07/09/2023 by Shukri Godwin MD [facility] [id number] / [id number] / Lead,Jerome,S 53, - [id number] - [id number] Implanted:Qty: 1 on 07/09/2023 by Shukri Godwin [facility] [id number] / [id number] / Krysr Amy Newton Dr-T - [id number] - [id number] Implanted:Qty: 1 on 07/09/2023 by Shukri Godwin MD at [facility] Center[id number] / [id number] / ClipStomachDescription:Pt has a 2 Resolution clips in stomach- conditional for 3T and 1.5- max spatial gradient 2500 G/cm-normal op mode- whole body GOOD 2 W/kg- 15 mins scanning- LK 07/09/22 Procedures Procedure NamePriorityDate/TimeAssociated DiagnosisCommentsCARDIAC DEVICE CHECK CHECK - MUASITCzevszy21/21/2025 9:47 AM EDT Adjustment and management of cardiac pacemaker CARDIAC DEVICE CHECK - REMOTE - MIZJESIUHFxxtjfl27/17/2025 12:00 AM EDTECG 12 LEAD UNIT LJZPMGTEEMjwcelk40/01/2025 10:09 AM EDTfrom Last 3 Months Results * CARDIAC DEVICE CHECK - REMOTE - PACEMAKER (02/09/2025 9:47 AM EDT)Specimen (Source)Anatomical Location / LateralityCollection Method / VolumeCollection TimeReceived Time Narrative Authorizing ProviderResult TypeResult StatusPagurvinder Personcko MDCV IMPLANTABLE CARDIAC DEVICE PROCEDURESFinal ResultPerforming OrganizationAddressCity/State/ZIP Code Phone Number CPACS * Cardiac device check - Remote pacemaker (02/05/2025 12:00 AM EDT)Anatomical RegionLateralityModalityOtherSpecimen (Source)Anatomical Location / Laterality Collection Method / VolumeCollection TimeReceived Time02/05/2025 Narrative Authorizing ProviderResult TypeResult StatusGodfreyul Julian MDCV IMPLANTABLE CARDIAC DEVICE PROCEDURESFinal Result * ECG 12 lead unit performed (01/20/2025 10:09 AM EDT)Specimen (Source) Anatomical Location / LateralityCollection Method / VolumeCollection Time Received Time Narrative Authorizing ProviderResult TypeResult Magdalena Shen CNPCOMMUNITY H[facility] [place] ORDERABLES Final Result from Last 3 Months Insurance Advance Directives * Full Code (Latest Code Status on File) Date ActivatedDate MchxajxrthzGpvycfdk21/18/2024 7:20 PM04/10/2024 5:46 PM * Full Code Date ActivatedDate DwrmakjabusDnxkbavw16/7/2024 7:21 PM10 6:35 PM * Full Code Date ActivatedDate InactivatedComments07/09/2023 2:35 PM07/09/2023 6:15 PM * Full Code Date ActivatedDate OxrwvfcenccHkxwoism78/15/2022 5:25 PM03/07/2022 2:47 PM Care Teams Team MemberRelationshipSpecialtyStart DateEnd Date Radha Newton MD [facility]12/11/21
--- OUTSIDE RECORDS SUMMARY | 2025-04-06 08:45 | XMS_ITS | Encounter Summary ---
Author Organization [facility] Address [address] [place] [address] Care Team Providers Care Client Services Account Manager Name Role Phone Radha Newton MD Primary Care Provider [phone] Encounter Details DateTypeDepartmentCare Team (Latest Contact Info)Xavmeazjvqt22/12/2025Orders Only [facility] [address] [place] [address] Jazzy Rangel MA Edema, unspecified type (Primary Dx) Social History Tobacco UseTypesPacks/DayYears UsedDateSmoking Tobacco: CvvksxLhpaknqenq221 1967 - 1983CigarsSmokeless Tobacco: FormerChewQuit: 1983 Alcohol UseStandard Drinks/WeekCommentsYes1 (1 standard drink = 0.6 oz pure alcohol)occasionalADENA HEALTH SYSTEM UtilitiesAnswerDate RecordedIn the past 12 months has the electric, gas, oil, or water [employer] threatened to shut off services in your home?No04/08/2024Overall Financial Resource Strain (CARDIA)AnswerDate Recorded How hard is it for you to pay for the very basics like food, housing, medical care, and heating?Not hard at all04/08/2024HQ-2AnswerDate RecordedPatient Health Questionnaire-2 Uztxd44306/02/2024Humiliation, Afraid, Rape, and Kick questionnaireAnswerDate RecordedWithin the [...] were you homeless or living in a chcf (including now)? No04/08/2024Hunger Vital SignAnswerDate RecordedWithin the past 12 months, you worried that your food would run out before you got the money to buymore.Never true4Ran Out of Food in the Last YearNot on file04/08/2024Sex and Gender InformationValueDate RecordedSex Assigned at YwvrjQwym30/18/2024 5:12 PM ESTLegal PpmPtqg5010/18/2021 10:00 PM EDTGender QzceorirHukm61/18/2024 5:12 PM EST Sexual OrientationChoose not to fhfpbqab85/18/2024 5:12 PM ESTdocumented as of this encounter Plan of Treatment DateTypeDepartmentCare Team (Latest Contact Info)Xyblskvehtf85/03/2026 9:00 AM ESTOffice Visit [facility] [place] [address] [place] [address] Iram Shen, PLAIN GOODS HEMMER [address] [place] [address] documented as of this encounter Visit Diagnoses Diagnosis Edema, unspecified type- Primary documented in this encounter Care Teams Team MemberRelationshipSpecialtyStart DateEnd Date Radha Newton MD PCP - General12/11/21documented as of this encounter
--- OUTSIDE RECORDS SUMMARY | 2025-04-06 08:45 | XMS_ITS | Clinical Summary ---
Author Organization [employer] Address [id number] [place] [address] Care Team Providers Care Hostess Name Role Phone Radha Newton MD Primary Care Provider Allergies Active AllergyReactionsCriticalityNoted JbujPguiylbfUmsrckxxkdv12/24/2001 As a child LdacfuijieKjidrnuht49/05/2022 Unable to speak VancomycinAnaphylaxis,IodhblvEjje13/16/2022 Itching hands/feet Medications MedicationSigDispense QuantityRefillsLast FilledStart DateEnd [...] DateHistory of CVA (cerebrovascular accident) 12/24/2022H/O AFib gzplldty03/04/2023hest pain, unspecified type12/23/2022cute kidney injury superimposed on CKD12/23/2022Hypoparathyroidism after procedure 3Chest pain01/24/2021tage 3a chronic kidney rdowoua9212/14/2020 Overview (12/24/2022): - baseline Cr unknown stage [...] reported 60% stenosis - further details unknown Vfmimwessdoxih03/09/2020Obstructive sleep apnea rawpours70/10/2020 Overview (12/24/2022): -chronic, on CPAP at home -stable -Continue CPAP while in hospital -chronic, on CPAP at home -stable -Continue CPAP while in hospital -chronic, on CPAP at home -stable -Continue CPAP while in hospital -chronic, on CPAP at home -stable -Continue CPAP while in hospital Ddpnckazxuns07/12/2019Acquired lmatqoyvvdmdlt97/06/2016 Overview (12/24/2022): Pt is on synthroid after [...] 0.6 oz pure alcohol)1 beer a monthChildcareAnswerDate JcswszwkYxbifrzdhNsvqjym35/12/2019 EmploymentAnswerDate HjtkaywsKzkzbvejttHvwdzzo26/12/2019Hunger ScreeningAnswer Date RecordedWithin the past 12 months we worried whether our food would run out before we got money to buy more.Never True12/23/2022Within the past 12 months the food we bought just didn't last and we didn't have money to get more.Never True3Purpose - LifeAnswerDate RecordedPurpose and direction in life Mydngts2806/02/2020ex and Gender InformationValueDate RecordedSex Assigned at IasnmBxrz66/03/2023 9:24 PM EDTLegal GirLvrw1011/25/2014 11:30 AM EDTGender JjmjwadlMzmz20/03/2023 9:24 PM EDTSexual GfjivljbxivMxtsdxni32/03/2023 9:24 PM EDT Last Filed Vital Signs Vital SignReadingTime TakenCommentsBlood Zlnwxpjp785/7609 7:53 AM EDT Oqvfw734512/24/2022 10:49 AM GGMQniwyzchpix61.8 ??C (98.3 ??F)12/24/2022 7:53 AM EDTRespiratory Zduy375012/24/2022 7:53 AM EDTOxygen Nytetteiol73%12/24/2022 7:53 AM EDTInhaled Oxygen Concentration--Atngor609.9 kg (251 lb)12/23/2022 5:54 PM TJNZyxbsk048.1 cm (6' 6 )12/23/2022 5:54 PM EDTBody Mass Index29.01012/23/2022 5:54 PM EDT Plan of Treatment Health MaintenanceDue DateLast DoneCommentsStatin Use: Gfqmlrmfrrgwfo54/30/1956 Depression Fyvxirifc75/30/1966Tobacco Omooewtsp21/30/1966Zoster (Shingles) Vaccine (1 of 2)2003Fall Risk Gamnpkvay60/30/2019DTaP,Tdap and Td Vaccines (2 - Td or Tdap)/dult BMI Dnjuqxsnj54 COVID-19 Vaccine ( season)/, 07/15/2020, 06/17/2020Influenza Zbkaymz06RSV ( or age 60+ yrs) (1 - 1-dose 75+ series)2028 Medical Devices ImplantedTypeAreaManufacturerDevice IdentifierShelf Expiration DateModel / Serial / LotLens Iol Ultrasert 13.5d - [id number] - [id number] Implanted:Qty: 1 on 02/27/2022 by Sara Gonzalez MD at [facility]: [id number] 13.5 / [id number] / NA Insurance Advance Directives * Full Code (Latest Code Status on File) Date ActivatedDate InactivatedComments12/23/2022 4:38 PM12/24/2022 2:19 PM Care Teams Team MemberRelationshipSpecialtyStart DateEnd Date Radha Newton MD [address] [place] [address] PCP - GeneralFamily Medicine08/30/16
--- OUTSIDE RECORDS SUMMARY | 2025-04-06 08:45 | XMS_ITS | Clinical Summary ---
Author Organization [facility] Address [address] [place] [address] Care Team Providers Care Cigarette Filter Inspector Name Role Phone Unavailable Primary Care Provider Unavailabl e Social History Tobacco UseTypesPacks/DayYears UsedDateSmoking Tobacco: Never AssessedSex and Gender InformationValueDate RecordedSex Assigned at BirthNot on fileLegal Sex Male05/25/2012 2:59 PM ESTGender IdentityNot on fileSexual OrientationNot on file Plan of Treatment Health MaintenanceDue DateLast DoneCommentsHEPATITIS C VIRUS XWTMZIDKH33/30/1956 AWBDKZS82 1953TDAP (ADULT)1972LIPID OEIIZEMJY86/30/1994COLORECTAL CANCER SCREENING ETJUECGYIF94/30/1999PNEUMOCOCCAL VACCINE SERIES (1 of 1 - PCV) 2003ZOSTER (SHINGLES) VACCINE (1 of 2)2003ABDOMINAL AORTIC ANEURYSM HIGH RISK IEPNWY7905/21/2018COVID-19 VACCINE (1 - 2024- season)2024 INFLUENZA VACCINE (#1)2024RSV VACCINE (1 - 1-dose 75+ series)2028HEP B VACCINEAged OutNo longer eligible based on patient's age to complete this topic
--- OUTSIDE RECORDS SUMMARY | 2025-04-06 08:45 | XMS_ITS | Encounter Summary ---
Author Organization [facility] Address [address] [place] [address] Care Team Providers Care Penology Teacher Name Role Phone Radha Newton MD Primary Care Provider [phone] Abdirahman Pina DO Unavailable [phone] Reason for Visit * ReasonCommentsMed Refill Encounter Details DateTypeDepartmentCare Team (Latest Contact Info)Fhrhrjzmlpq48/05/2025[facility] [address] [place] [address] Sara Odom NP [address] [place] [address] Acquired hypothyroidism Social History Tobacco UseTypesPacks/DayYears UsedDateSmoking Tobacco: FormerCigarettes1.514 04/22/1969 - 1983PipeCigarsSmokeless Tobacco: Never Comments:Last smoked:>20 yea rs ago Alcohol UseStandard Drinks/WeekCommentsYes0 (1 standard drink = 0.6 oz pure alcohol)Caffeine intake: 1 cups per day of gbvenaH4615 Health LiteracyAnswerDate RecordedHow often do you need [...] times a week12/17/2023How often do you attend restorationism or denominational services?Never12/17/2023o you belong to any clubs or organizations such as restorationism groups, unions, fraternal or athletic groups, or school groups?No12/17/2023How often do you attend meetings of the clubs or organizations you belong to?Never12/17/2023re you , , , , never , or living with a partner?Dehpisi2912/17/2023 AUDIT-CAnswerDate RecordedQ1: How often do you have [...] heating?Not very hard12/17/2023HQ-2Answer Date RecordedPatient Health Questionnaire-2 Ngztz426[facility] [place] of Occupational Health - Occupational Stress QuestionnaireAnswerDate [...] steady place to sleep or slept in [facility] (including now)?No10/01/2022Housing Stability Vital SignAnswerDate RecordedIn the last 12 months, was there a time when you were not able to pay the mortgage or rent on time?No12/17/2023Number of Times Moved in the Last Year Not on file12/17/2023t any time in the past 12 months, were you homeless or living in a residential (including now)?No12/17/2023Sex and Gender InformationValue Date RecordedSex Assigned at BirthNot on fileLegal MrqIjay0107/04/2022 7:10 PM EDT Gender UtjjoylzBrql37/15/2023 7:10 PM EDTSexual OrientationNot on filedocumented as of this encounter Plan of Treatment Not on file documented as of this encounter Visit Diagnoses Diagnosis Acquired hypothyroidism Unspecified hypothyroidism documented in this encounter Additional Health Concerns AssessmentNoted TimePHQ-9 Depression Total Score: 9:00 AM EST documented as of this encounter Care Teams Team MemberRelationshipSpecialtyStart DateEnd Date Radha Newton MD [address] [place] [address] PCP - GeneralFamily Medicine09/20/22 Abdirahman Pina DO [address] [place] [address] Referring PhysicianNeurology06/22/24documented as of this encounter
--- OUTSIDE RECORDS SUMMARY | 2025-04-06 08:45 | XMS_ITS | Encounter Summary ---
Author Organization [facility] Address [facility] [place] [address] Care Team Providers Care Hardener Helper Name Role Phone Radha Newton MD Primary Care Provider [phone] Elian Ceballos MD Unavailable Herminia Roland MD Unavailable [phone] Source Comments In the event this information is protected by the Federal Confidentiality of Alcohol and Drug AbusePatient Records regulations: The Federal rules restrict any use of the information to criminally investigate or prosecute any alcohol or drug abuse patient.[facility] Encounter Details DateTypeDepartmentCare Team (Latest Contact Info)Iyzeiduqgse62/04/2025 Patient Msg Neurology [address] [place] [id number] Provider, [facility] Order Social History Tobacco UseTypesPacks/DayYears UsedDateSmoking Tobacco: IqvbksYbkkiipcwo256 09/12/1968 - 09/13/1983Smokeless Tobacco: NeverAlcohol UseStandard Drinks/Week CommentsYes0 (1 standard drink = 0.6 oz pure alcohol)1 beer once a monthPHQ-2 AnswerDate RecordedPHQ-2 qhibe9195Area Deprivation IndexAnswerDate RecordedNational Score (1-100), lower number is lower grzg890909/13/2022State Score (1-10), lower number is lower hewl3953Data from: https://www.neighborhoodatlas.medicine.[facility]/. Last address used for [address] [facility] Sex and Gender InformationValueDate RecordedSex Assigned at BirthNot on fileLegal YvnDkwx09/02/2012 9:35 AM EST Gender IdentityNot on fileSexual OrientationNot on filedocumented as of this encounter Functional Status * Are you deaf or do you have serious difficulty hearing?AnswerDate of HxhxoxvfqwTfmhjbJg96/26/2021 12:20 PM Kathie Schwab APRN.SENIOR QUALITY ASSURANCE ANALYST * Are you blind or do you have serious difficulty seeing, even when wearing glasses?AnswerDate of OsducwwducGxfcjjEi16/26/2021 12:20 PM Kathie Schwab APRN.SENIOR QUALITY ASSURANCE ANALYST * Do you have serious difficulty walking or climbing stairs?AnswerDate of BxecslmkcbQothzdOn05/26/2021 12:20 PM Kathie Schwab APRN.SENIOR QUALITY ASSURANCE ANALYST * Do you have difficulty dressing or bathing?AnswerDate of AssessmentAuthorNo 12/15/2020 12:20 PM Kathie Schwab APRN.SENIOR QUALITY ASSURANCE ANALYST * Because of a physical, mental, or emotional condition, do you have difficulty doing errands alone such as visiting a doctor's office or shopping?AnswerDate of EiksrkhpasAhbmweIl77/26/2021 12:20 PM Kathie Schwab APRN.SENIOR QUALITY ASSURANCE ANALYST documented as of this encounter Mental Status * Because of a physical, mental, or emotional condition, do you have serious difficulty concentrating, remembering, or making decisions?AnswerEntry Date EgvkbcKm30/26/2021 12:20 PM Kathie Schwab APRN.SENIOR QUALITY ASSURANCE ANALYST documented in this encounter Plan of Treatment DateTypeDepartmentCare Team (Latest Contact Info)Zcmwzvcwamo90/18/2026 11:30 AM ESTOffice Visit [facility] [address] [place] [address] Zev Hudson MD [address] [place] [address] Parkinson'sdocumented as of this encounter Visit Diagnoses Not on filedocumented in this encounter Care Teams Team MemberRelationshipSpecialtyStart DateEnd Date Radha Newton MD [address] [place] [phone] PCP - GeneralFamily Medicine10/09/17 Elian Ceballos MD [address] [place] [address] Primary Staff PhysicianCardiology12/01/20 Herminia Roland MD [address] [place] [address] Primary Staff BcgummwlzDdpisvlsiv57/13/21documented as of this encounter
--- OUTSIDE RECORDS SUMMARY | 2025-04-06 08:45 | XMS_ITS | Encounter Summary ---
Author Organization [facility] Address [address] [place] [address] Care Team Providers Care Employee Placement Specialist Name Role Phone Radha Newton MD Primary Care Provider Encounter Details DateTypeDepartmentCare Team (Latest Contact Info)Lqhqvrmtapc77/08/2025Telephone [facility] [address] [place] [address] Herminia Johns MA Social History Tobacco UseTypesPacks/DayYears UsedDateSmoking Tobacco: FurpkgYpwppkstpx719 1967 - 1983CigarsSmokeless Tobacco: FormerChewQuit: 1983 Alcohol UseStandard Drinks/WeekCommentsYes1 (1 standard drink = 0.6 oz pure alcohol)occasionalAHC UtilitiesAnswerDate RecordedIn the past 12 months has the [employer], gas, oil, or water [employer] threatened to shut off services in your [...] otherwise physically hurt by your partner or ex-partner?No06/17/2023Within the last year, have you been raped [...] were you homeless or living in a long term (including now)? No04/08/2024Hunger Vital SignAnswerDate RecordedWithin the past 12 months, you worried that your food would run out before you got the money to buymore.Never true04/08/2024an Out of Food in the Last YearNot on file04/08/2024Sex and Gender InformationValueDate RecordedSex Assigned at WttpmBcsl86/18/2024 5:12 PM ESTLegal WrxAiwe8010/18/2021 10:00 PM EDTGender VcpvsedpBnto49/18/2024 5:12 PM ESTSexual OrientationChoose not to kbxumumh51/18/2024 5:12 PM ESTdocumented as of this encounter Miscellaneous Notes * Telephone Encounter - Herminia Johns MA - 03/29/2025 10:47 AM EST NEETU Reveles MA Please let him know his abdominal US showed no evidence of an aneurysm in his abdomen. Will await his ECHO for follow-up on the aneurysm in his chest. Thank you Spoke to patient to advise him of his Echo results per Harriet Shen's request. Patient verbalized understanding. documented in this encounter Plan of Treatment DateTypeDepartmentCare Team (Latest Contact Info)Lazozalpscp08/03/2026 9:[address] [facility] [address] [place] [address] Iram Shen CNP [address] [place] [phone] documented as of this encounter Visit Diagnoses Not on filedocumented in this encounter Care Teams Team MemberRelationshipSpecialtyStart DateEnd Date Radha Newton MD PCP - General12/11/21documented as of this encounter
--- OUTSIDE RECORDS SUMMARY | 2025-04-06 08:45 | XMS_ITS | Patient Health Record ---
Author Organization [facility] [place] Address [address] [place] [address] Care Team Providers Care Door To Door Selling Distributor Name Role Phone Aman VAZQUEZ, Radha Primary [...] W/U Status Risk Notes Problem Atrial fibrillation (13002038) Unspecifie d atrial fibrillation (I48.91) ActiveconfirmedProblemNon-infective enteritis and colitis (535578304) Noninfective gastroenteritis and colitis, unspecified (K52.9)Activeconfirmed colonoscopy [...] lymphocytic colitis.ProblemHistory of excision of intestinal structure (238945909)Acquired absence of other specified parts of digestive tract (Z90.49) ActiveconfirmedProblemHypothyroid (95194638)Hypothyroid (E03.9)Activeconfirmed ProblemHistory of polyp of colon (situation) (211826734)Personal history of colon polyps, unspecified (Z86.0100)Activeconfirmedcolonoscopy on [...] Heart Rate 90 /min 04/08/2024 Blood pressure jzulbvpbo98 mm Hg04/08/20241217Mmbqzi42 in04/08/2024lood pressure luzsnkps717 mm Hg04/08/20245700Whpunf348 lbs106/09/2023BMI28.54 kg/m204/08/2024 Encounters Encounter Location Date Provider Diagnosis [facility] [address] [place] [address] 04/08/2024 Roro ansari Noninfective gastroenteritis and colitis, unspecified K52.9 ; Personal history of colon polyps, unspecified Z86.0100 ; Acquired absence of other specified parts of digestive tract Z90.49 and Unspecified atrial fibrillation I48.91 [facility] [place] [address] [place] [address] 05/01/2024 Roro ansari Assessments Encounter Date Diagnosis (ICD Code) Assessment [...] End Date [place]IC[place] [address] [place] [address] [id number] Jigar Arnold Jr - patient is the insuredMMOPO [address] [place], [place] [id number] Jr, FredrickSelf - patient is the insured Medical (General) History Medical History History ICD Code Chronic kidney disease, stage 3 (moderat e) N18.3 Hypothyroid E03.9 Afib 427.31 Surgical History Surgery Date(Month/Year) PACEMAKER CHOLECYSTECTOMYleft knee replacementright knee replacementhiatal herniascrews in neckcardiac ablation q2cqdytjujgboxp, completeHospitalization History Reason Date([facility] [place]
--- OUTSIDE RECORDS SUMMARY | 2025-04-06 08:45 | XMS_ITS | Encounter Summary ---
Author Organization [facility] Address [address] [place] [address] Care Team Providers Care Iridologist Name Role Phone Anastasia Burris MD Primary Care Provider [phone] Silvana Jasmeetnadine DO Unavailable [phone] Encounter Details DateTypeDepartmentCare Team (Latest Contact Info)Andyeucrdin63/04/2025Clinisync Result Encounter [facility] External Department Unsolicited Provider, Generic External Data Social History Tobacco UseTypesPacks/DayYears UsedDateSmoking Tobacco: FormerCigarettes1.514 04/22/1969 - 1983PipeCigarsSmokeless Tobacco: Never Comments:Last smoked:>20 yea rs ago Alcohol UseStandard Drinks/WeekCommentsYes0 (1 standard drink = 0.6 oz pure alcohol)Caffeine intake: 1 cups per day of ripxuhR2501 Health LiteracyAnswerDate RecordedHow often do you need [...] times a week12/17/2023How often do you attend episcopalian or mormonism services?Never12/17/2023o you belong to any clubs or organizations such as episcopalian groups, unions, fraternal or athletic groups, or school groups?No12/17/2023How often do you attend meetings of the clubs or organizations you belong to?Never12/17/2023re you , , , , never , or living with a partner?Huvzygq3612/17/2023 AUDIT-CAnswerDate RecordedQ1: How often do you have [...] heating?Not very hard12/17/2023HQ-2Answer Date RecordedPatient Health Questionnaire-2 Xrxtl724Finprimary children's hospital [place] of Occupational Health - Occupational Stress QuestionnaireAnswerDate [...] steady place to sleep or slept in hardyelter (including now)?No10/01/2022Housing Stability Vital SignAnswerDate RecordedIn the last 12 months, was there a time when you were not able to pay the mortgage or rent on time?No12/17/2023Number of Times Moved in the Last Year Not on file12/17/2023t any time in the past 12 months, were you homeless or living in a penitentiary (including now)?No12/17/2023Sex and Gender InformationValue Date RecordedSex Assigned at BirthNot on fileLegal CaqOccq4407/04/2022 7:10 PM EDT Gender IgiuhlkkMioe86/15/2023 7:10 PM EDTSexual OrientationNot on filedocumented as of this encounter Plan of Treatment Not on file documented as of this encounter Procedures Procedure NamePriorityDate/TimeAssociated DiagnosisCommentsVASC US ABDOMINAL AORTA ANUERYSM AAA LEYQKGULJ24/04/2025 9:37 AM EST documented in this encounter Results * Vascular US abdominal aorta anuerysm AAA screening (03/25/2025 9:37 AM EST) Anatomical RegionLateralityModalityAbdomenUltrasoundSpecimen (Source) Anatomical Location / LateralityCollection Method / VolumeCollection Time Received Time03/25/2025 9:37 AM EST Narrative 03/25/2025 9:40 AM EST [facility] ?[address] ? [place] [address] ? Ultrasound Report ? Signed ? Patient: EVERARDO ARNOLD Jr. ?MR#: [id number] ?? : 1955 ?Acct:[id number] ?? Age/Sex: 69 / M ?ADM Date: 03/25/25 ?? Loc: US ? Attending Dr: YANDEL BURKS APRN ? Ordering Physician: YANDEL BURKS APRN ?? Date of Service: 03/25/25 ?? Procedure(s): US abdominal aortic aneurysm ?? Accession Number(s): [id number] ? cc: ANASTASIA BURRIS ; YANDEL BURKS APRN ? [facility] ? [address] ? [place] [address] ? Patient Name: ?? EVERARDO ARNOLD ? MRN: [facility]:[id number] ? date: 1955 ?Sex: M ?? Assigned Patient Location: US ?? Current Patient Location: US ?? Accession/Order Number: [id number] ?? Exam Date: 03/25/2025 ??07:01 ?Report Date: [...] M.D. ??03/25/2025 9:37 AM ? Dictation Location: [facility]02 ? Electronically authenticated by: [id number] ??Y ?? Date: 03/25/2025 ??09:37 ? Dictated By: ?Aide Banks M.D. ? Signed By: ?03/25/25 0940 ? DD/ 0937 ? TD/TT: ? It Network Engineer: Procedure Note Radiology, Radiologist, - 03/25/2025 [place] [address] Ultrasound Report Signed Patient: EVERARDO ARNOLD Jr.MR#: [id number] : 1955cct:[id number] Age/Sex: 69 / MADM Date: 03/25/25 Loc: US Attending Dr: YANDEL BURKS APRN Ordering Physician: YANDEL BURKS APRN Date of Service: 03/25/25 Procedure(s): US abdominal aortic aneurysm Accession Number(s): [id number] cc: ANASTASIA BURRIS ; YANDEL BURKS APRN [address] [place] [id number] Patient Name: EVERARDO ARNOLD MRN: [facility]:[id number] date: 1955 Sex: M Assigned Patient Location: US Current Patient Location: [place] Accession/Order Number: [id number] Exam Date: 03/25/2025 07:01 Report Date: 03/25/2025 [...] Banks M.D. 03/25/2025 9:37 AM Dictation Location: [place] [address] Electronically authenticated by: [id number] Y Date: 9:37 Dictated By: Aide Banks M.D. Signed By:03/25/25939 DD/ 6 TD/TT: It Network Engineer: Authorizing ProviderResult TypeResult StatusGeneric External Data ProviderIMG US PROCEDURESFinal Result documented in this encounter Visit Diagnoses Not on filedocumented in this encounter Additional Health Concerns AssessmentNoted TimePHQ-9 Depression Total Score: 9:00 AM EST documented as of this encounter Care Teams Team MemberRelationshipSpecialtyStart DateEnd Date Anastasia Burris MD [address] [place] [address] PCP - GeneralFamily Medicine09/20/22 Abdirahman Pina DO [address] [facility] [address] [place] [address] Referring PhysicianNeurology06/22/24documented as of this encounter
--- OUTSIDE RECORDS SUMMARY | 2025-04-06 08:45 | XMS_ITS | Clinical Summary ---
Author Organization [facility] Address [address] [place] [address] Care Team Providers Care It Integration Architect Name Role Phone Radha Newton MD Primary Care Provider [phone] Esther Grey DO Unavailable Source Comments The following information is NOT included in Care Everywhere downloads:Psychiatric notes, ECG results, Cardiac Rehab notes, Pulmonary Function notes, data from [employer] (includes but not limited toPregnancy data,audiograms, eye exams, pre-surgical evaluation notes, well-child exam data).[facility] Allergies Active AllergyReactionsCriticalityNoted GxjjDxcpzjlwOletfdznfye64/24/2001 Medications MedicationSigDispense QuantityRefillsLast FilledStart DateEnd DateStatus benazepril [...] Discontinued) Active Problems ProblemNoted DateDiagnosed DatePersistent atrial uhbrdwmxubaj58/24/2020Tension type /16/2020Nuclear sclerotic cataract, left10/07/2017 Overview (01/06/2020): Added automatically from request for surgery [id number] Retinal detachment, left10/07/2017 Overview (01/06/2020): Added automatically from request for surgery [id number] Added automatically from request for surgery [id number] Multifocal atrial tachycardiaPAF (paroxysmal atrial fibrillation)HTN (hypertension)CKD (chronic kidney disease) stage 3, GFR 30-59 ml/minChest pain Immunizations ImmunizationAdministration DatesNext DueInfluenza, injectable, quadrivalent, preservative free (IHW=121)01/28/2016Moderna Monovalent (12+ yrs) COVID-19 vaccine, mRNA, spike protein, LNP, PF, 100 mcg/0.5 mL (TOR=870)07/15/2020, 06/17/2020Tdap (INU=618)01/27/2013 Family History Medical HistoryRelationNameCommentsDiabetes MellitusFatherHypertensionFather HypertensionPaternal GrandmotherRelationNameStatusCommentsFatherPaternal Grandmother Social History Tobacco UseTypesPacks/DayYears UsedDateSmoking Tobacco: FqyficEdteirvgma4Betr: 01/06/1984Smokeless Tobacco: NeverAlcohol UseStandard Drinks/WeekCommentsYes1 (1 standard drink = 0.6 oz pure alcohol)AUDIT-CAnswerDate RecordedQ1: How often do you have a drink containing alcohol?Monthly or less01/06/2020Average Number of DrinksNot on file01/06/2020Frequency of Binge DrinkingNot on file01/06/2020PHQ-2 AnswerDate RecordedPHQ-2 Dxqpb417Substance UseTypesUse/WeekCommentsNever Sex and Gender InformationValueDate RecordedSex Assigned at BirthNot on file Legal OsmQput7912/26/2019 2:01 PM EDTGender IdentityNot on fileSexual Orientation Not on file Last Filed Vital Signs Vital SignReadingTime TakenCommentsBlood Tvowiqtn662/7810 9:23 AM EDT Pxskf0205 9:23 AM FULHvgxeftffxf03.6 ??C (97.9 ??F)01/27/2020 9:23 AM EDTRespiratory Sbww6046 9:23 AM EDTOxygen Kptsfeddro63%01/27/2020 9:23 AM EDTInhaled Oxygen Concentration--Avqfyx686.3 kg (252 lb)01/27/2020 9:23 AM OSRQmvudp186.1 cm (6' 6 )01/14/2020 5:19 PM EDTBody Mass Index29.1209 5:19 PM EDT Plan of Treatment Health MaintenanceDue DateLast DdyuAafqsvbeNpjiznotwto78/30/1956Hepatitis C Wypkprcn34/30/1972Hepatitis A (HAV) Vaccine (optional start 19+ years)1972 Rhkjvwfnydf79/30/1989CRC Fawqqsape15/30/1999Cologuard (Stool DNA)1998FIT 1998Pneumococcal Vaccine(s) (50+ yrs) (1 of 1 - PCV)2003Shingles (RZV) Vaccine (1 of 2)2003Hepatitis B (HBV) Vaccine (optional start 60+ years)2013bdominal Aortic Aneurysm Hublkdg8705/21/2018Annual Wellness Visit (G0438)02/21/2020TSHTetanus (Td or Tdap) Ahqzqdn6801/27/2023 01/27/2013asic Metabolic Panel/03/2023, 01/15/2020, 01/14/2020, Additional history existsCOVID-19 Vaccine ( - 2024- season)2024 04/10/2021, 07/15/2020, 06/17/2020Influenza Vaccine (#1)RSV vaccine (adult) (1 - 1-dose 75+ series)2028Tdap SgnwuoaNkcpyzock74/08/2013 Procedures Procedure NamePriorityDate/TimeAssociated DiagnosisCommentsBASIC METABOLIC PANEL Whswvlp0901/15/2020 12:10 AM EDT RTPMqbkiwq33/16/2020 3:03 PM EDT Persistent atrial fibrillation (HCC) Multifocal atrial tachycardia (HCC) Palpitations SOB (shortness of breath) Lightheaded Anticoagulated 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, unspecified type ADA (obstructive sleep apnea) Multiple gastric ulcers from Last 3 Months or Most Recently Relevant to Health Maintenance Results * (ABNORMAL) BASIC METABOLIC PANEL (01/15/2020 12:10 AM EDT)ComponentValueRef RangeTest MethodAnalysis TimePerformed AtPathologist ZyxnmrytsLnfrtoq192(H)80 - 116 mg/dL01/15/2020 12:39 [facility] YZBEEMUSRHRecviy917768 - 148 mmol/L01/15/2020 12:39 AM [facility] LABORATORYPotassium3.73.3 - 5.3 mmol/L01/15/2020 12:39 AM [facility] LABORATORYCarbon Yhojgen6864 - 30 mmol/L01/15/2020 12:39 AM [facility] KCMYLMLIGPCqupebio77972 - 111 mmol/L01/15/2020 12:39 AM [facility] LABORATORYBlood Urea Bhepccod302 - 22 mg/dL01/15/2020 12:39 AM [facility] LABORATORYCreatinine1.32(H)0.80 - 1.30 mg/dL01/15/2020 12:39 AM [facility] LABORATORYCalcium6.8(L)8.4 - 10.4 mg/dL01/15/2020 12:39 AM [facility] LABORATORYAnion Gap15(H)5 - 13 01/15/2020 12:39 AM [facility] LABORATORYEstimated GFR (CKD-EPI)56(L) >=60 mL/min/1.43naj9501/15/2020 12:39 AM [facility] LABORATORYSpecimen (Source)Anatomical Location / LateralityCollection Method / VolumeCollection TimeReceived TimeBloodBLOOD SPECIMEN / UnknownPort Draw / Hawtgcw4401/15/2020 12:10 AM EDT01/15/2020 12:14 AM EDT Narrative Authorizing ProviderResult TypeResult StatusRyan Yavorsky DO98 GENERAL LABFinal ResultPerforming OrganizationAddressCity/State/ZIP CodePhone Number [facility] [address] [place] [address] * TSH (01/06/2020 3:03 PM EDT)ComponentValueRef RangeTest MethodAnalysis Time Performed AtPathologist SignatureTSH1.4120.450 - 5.330 uIU/mL01/06/2020 5:08 PM [facility] LABORATORYSpecimen (Source)Anatomical Location / LateralityCollection Method / VolumeCollection TimeReceived TimeBloodBLOOD SPECIMEN / UnknownVenipuncture / Aojekkv3801/06/2020 3:03 PM EDT01/06/2020 4:15 PM EDT Narrative Authorizing ProviderResult TypeResult StatusSaima Karim DO98 GENERAL LABFinal ResultPerforming OrganizationAddressCity/State/ZIP CodePhone Number [facility] [address] [place] [address] from Last 3 Months or Most Recently Relevant to Health Maintenance Insurance * Guarantor: Everardo Arnold TypeRelation to PatientDate of PhoneBilling AddressGoing Home BhkzVvsj14/30/1956 [address] [address] Advance Directives * Full Code (Latest Code Status on File) Date ActivatedDate InactivatedComments01/15/2020 1:13 AM01/15/2020 5:04 PMQuestion AnswerCommentsDocumentation of decision process for this code status:* Discussed with patient or surrogate.?? This is the code status chosen by the patient/surrogate. Care Teams Team MemberRelationshipSpecialtyStart DateEnd Date Radha Newton MD [address] [place] [address] PCP - GeneralInternal Medicine01/14/20 Esther Grey DO [address] [place] [address] [place] [address] YtyrqdricHcybossldqwkyagvh45/6/20
--- OUTSIDE RECORDS SUMMARY | 2025-04-06 08:45 | XMS_ITS | Clinical Summary ---
Author Organization [facility] Address [address] [place] [address] Phone Care Team Providers Care Boiler Washer Name Role Phone Radha Newton MD Primary Care Provider [phone] Allergies Active AllergyReactionsCriticalityNoted TrbfKpaxkentWemspbjajjgUarfxhb06/11/2023 LuucwzsowtjBmbfzng70/11/5502TsyahlsqtrIniprbu83/11/2023Vancomycin HclUnknown 01/30/2023Vancomycin Hcl In KzjedQqpcmqp26/11/2023 Medications MedicationSigDispense QuantityRefillsLast FilledStart DateEnd DateStatus venlafaxine [...] once daily.Active ergocalciferol (Vitamin D-2) 1.25 MG (52069 UT) capsule Take 1 capsule (1,250 mcg) [...] Problems ProblemNoted DateDiagnosed DateBilateral partial vocal cord oiodsgdkz70/11/2023 Dysphagia, oropharyngeal phase01/30/2023lottic doenajcgpeijz38/11/2023trial llvdwwnriknl73/11/6395Zsbynoh90/11/2023GERD (gastroesophageal reflux disease) 01/30/2023Muscle vemvnw9201/30/2023 Immunizations ImmunizationAdministration DatesNext DueFlu vaccine (IIV4), preservative free *Check age/dose*01/28/2016Tdap vaccine, age 7 year and older (BOOSTRIX, ADACEL) 01/27/2013 Family History Medical HistoryRelationNameCommentsLung cancerFatherLung cancerMotherRelation NameStatusCommentsFatherMother Social History Tobacco UseTypesPacks/DayYears UsedDateSmoking Tobacco: Never AssessedSex and Gender InformationValueDate RecordedSex Assigned at BirthNot on fileLegal Sex Male03/16/2022 6:56 PM ESTGender IdentityNot on fileSexual OrientationNot on file Last Filed Vital Signs Vital SignReadingTime TakenCommentsBlood Vuupmlip593/6507 2:23 PM EDT Ohljg6462/ 2:23 PM DVGKomikgzvols19.6 ??C (97.8 ??F)08/17/2022 10:33 AM EDTRespiratory Pfkq330708/17/2022 10:33 AM EDTOxygen Nhecaonhoe26%08/17/2022 10:33 AM EDTInhaled Oxygen Concentration--Udjrbo855 kg (250 lb)01/31/2023 2:51 PM EDT Vecetv458.1 cm (6' 6 )11/29/2022 1:43 PM EDTBody Mass Index28.8911/29/2022 1:43 PM EDT Plan of Treatment Health MaintenanceDue DateLast DoneCommentsCT Geqwssenrowd10/30/1954Colonoscopy 1953olorectal Cancer Fzuhppilo43/30/1954FIT-DNA (Cologuard)1953FIT 1955Lipid Panel1955 0233Pwrvwlsobmcrg80/30/1954TSH Level1953MMR Vaccines (1 of 1 - Standard series)1954Hepatitis C Vinstchyn00/30/1972 Pneumococcal Vaccine (1 of 1 - PCV)2003RSV High Risk: (Elderly (60+) or Population) (1 - Risk 50-74 years 1-dose series)2003Zoster Vaccines (1 of 2)2003Medicare Annual Wellness Visit (AWV)12/17/2020 12/17/2019DTaP/Tdap/Td Vaccines (2 - Td or Tdap)Diabetes Jtcybxqhe46, 11/21/2022, 01/01/2022Influenza Vaccine (#1) /11/2015COVID-19 Vaccine ( season), 07/15/2020, 06/17/2020Irritable Bowel QsjgukryPsxvtfymstyn16/25/2023, 08/30/2022 HIB VaccinesAged OutNo longer eligible based [...] PM EDT Left lower quadrant abdominal pain SLMYrtqgmo21/25/2023 3:41 PM EDT from Last 3 Months or Most Recently Relevant to Health Maintenance Results * (ABNORMAL) Basic metabolic panel (01/31/2023 3:30 PM EDT)ComponentValueRef RangeTest MethodAnalysis TimePerformed AtPathologist LjrbhgvmaZsceqvc0902 - 99 mg/dL LAB CHEMISTRY METHOD 01/31/2023 5:09 PM [facility] AFLGhhomd627996 - 145 mmol/L LAB CHEMISTRY METHOD 01/31/2023 5:09 PM [facility] LABPotassium4.33.5 - 5.3 mmol/L LAB CHEMISTRY METHOD 01/31/2023 5:09 PM [facility] CLSUdjtkrjq60324 - 107 mmol/L LAB CHEMISTRY METHOD 01/31/2023 5:09 PM [facility] WMTVorllkihlnu0333 - 32 mmol/L LAB CHEMISTRY METHOD 01/31/2023 5:09 PM [facility] LABAnion Uzg0324 - 20 mmol/L LAB CHEMISTRY METHOD 01/31/2023 5:09 PM [facility] LABUrea Bvfxojcr89(H)6 - 23 mg/dL LAB CHEMISTRY METHOD 01/31/2023 5:09 PM [facility] LABCreatinine1.65(H)0.50 - 1.30 mg/dL LAB CHEMISTRY METHOD 01/31/2023 5:09 PM [facility] LXErNNV49(L)>60 mL/min/1.73m*2 LAB CHEMISTRY METHOD 01/31/2023 5:09 PM [facility] LABComment: Calculations of estimated GFR are performed using the 2020 CKD-EPI Study Refit equation without therace variable for the IDMS-Traceable creatinine methods. https://jasn.asnjournals.org/content///ASN.8107567456 Calcium7.2(L)8.6 - 10.3 mg/dL LAB CHEMISTRY METHOD 01/31/2023 5:09 PM [facility] LABSpecimen (Source)Anatomical Location / LateralityCollection Method / VolumeCollection TimeReceived TimeBlood Venous blood specimen / UnknownVenipuncture / Mndedks7701/31/2023 3:30 PM EDT 01/31/2023 3:30 PM EDT Narrative Authorizing ProviderResult TypeResult StatusYossi Chen MDLAB BLOOD ORDERABLES Final ResultPerforming OrganizationAddressCity/State/ZIP CodePhone Number [facility] [address] [place] [address] * Esophagogastroduodenoscopy (EGD) (09/13/2022 3:41 PM EDT)Anatomical Region LateralityModalityEndoscopySpecimen (Source)Anatomical Location / Laterality Collection Method / VolumeCollection TimeReceived Time09/13/2022 3:41 PM EDT Narrative 09/13/2022 4:51 PM EDT Patient Name: Everardo Arnold Procedure Date: 09/13/2022 3:41 PM Date of : 1955 Admit Type: Outpatient Site: [place] Procedure Room 2 Ethnicity: Not or Race: White Attending MD: Ruby Daily MD, [id number] Procedure: ? Upper GI endoscopy Indications: ? Dysphagia, cricopharyngeal web Providers: ? Ruby Daily MD (Doctor), Vale Mercado RN ? (Nurse), Sabina Atkins, Senior Software Engineer Referring: ? Ruby Daily MD Medicines: ? [...] mucosal atrophy. ? - [facility]. Dilated. Estimated Blood Loss: ? Estimated blood [...] Procedure Code(s): ? --- Professional --- ? 11937, Moderate sedation services provided by the same ? physician or other qualified health care information associate ? performing the diagnostic or therapeutic service that ? the sedation supports, requiring the presence of an ? independent trained observer to assist in the ? monitoring of the patient's level of consciousness and ? physiological status; initial 15 minutes of ? intraservice time, patient age 5 years or older ? [address], Unlisted procedure, esophagus Diagnosis Code(s): ? --- Professional --- ? J38.3, Other diseases of vocal cords ? K44.9, Diaphragmatic hernia without obstruction or ? gangrene ? K22.89, Other specified disease of esophagus ? K31.89, Other diseases of stomach and duodenum ? 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 R13.10, Dysphagia, unspecified CPT copyright 2021 [employer]. All rights reserved. The codes documented in this report are preliminary and upon invoice coder review may be revised to meet current compliance requirements. Attending Participation: ? This operation could not have been safely performed (without ? compromising the technical results or length of the procedure) without ? the assistance of a skilled assistant to the president. A assistant to the president was ? medically necessary for positioning, retraction, and instrumentation. MD Ruby Edouard MD 09/13/2022 4:51:32 PM Number of Addenda: 0 Note Initiated On: 09/13/2022 3:41 PM Total Procedure Duration Time 0 hours 21 minutes 22 seconds Procedure Note Ruby Daily MD - 03/17/2024 Patient Name: Everardo Arnold Procedure Date: 09/13/2022 3:41 PM Date of : 1955 Admit Type: Outpatient Site: [place] Procedure Room 2 Ethnicity: Not or Race: White Attending MD: Ruby Daily MD, [id number] Procedure: Upper GI endoscopy Indications: Dysphagia, cricopharyngeal web Providers: Ruby Daily MD (Doctor), Vale Mercado RN (Nurse), Sabina Atkins, Senior Software Engineer Referring: Ruby Daily MD Medicines: Fentanyl 200 [...] present medications. Procedure Code(s): --- Professional --- 36301, Moderate sedation services provided by [facility] physician or other qualified health careprofessional performing the diagnostic or therapeutic servicethat the sedation supports, requiring the presence of an independent trained observer to assist in the monitoring of the patient's level of consciousnessand physiological status; initial 15 minutes of intraservice time, patient age 5 years or older [address], Unlisted procedure, esophagus Diagnosis Code(s): --- Professional --- J38.3, Other diseases of vocal cords K44.9, Diaphragmatic hernia without obstruction or gangrene K22.89, Other specified disease of esophagus K31.89, Other diseases of stomach and duodenum 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 All rights reserved. The codes documented in this report are preliminary and upon invoice coder reviewmay be revised to meet current compliance requirements. Attending Participation: This operation could not have been safely performed (without compromising the technical results or length of the procedure)without the assistance of a skilled assistant to the president. A surgical assistantwas medically necessary for positioning, retraction, andinstrumentation. MD Ruby Edouard MD 09/13/2022 4:51:32 PM Number of Addenda: 0 Note Initiated On: 09/13/2022 3:41 PM Total Procedure Duration Time 0 hours 21 minutes 22 seconds Authorizing ProviderResult TypeResult StatusRuby Daily MDENDOSCOPY PROCEDURE ORDERABLESEdited Result - Final from Last 3 Months or Most Recently Relevant to Health Maintenance Insurance [address] [place] [address] Care Teams Team MemberRelationshipSpecialtyStart DateEnd Date Radha Newton MD [address] [place] [address] [facility] - Tcecltt26/1/20
--- OUTSIDE RECORDS SUMMARY | 2025-04-06 08:45 | XMS_ITS | Encounter Summary ---
Author Organization [facility] Address [address] [place] [address] Care Team Providers Care Taping Foreman Name Role Phone Radha Newton MD Primary Care Provider [phone] Encounter Details DateTypeDepartmentCare Team (Latest Contact Info)Wahyunwwrip59/08/2025Telephone [facility] [address] [place] [address] Herminia Johns MA Social History Tobacco UseTypesPacks/DayYears UsedDateSmoking Tobacco: ViycnkOveuogaljd973 1967 - 1983CigarsSmokeless Tobacco: FormerChewQuit: 1983 Alcohol UseStandard Drinks/WeekCommentsYes1 (1 standard drink = 0.6 oz pure alcohol)occasionalAHC UtilitiesAnswerDate RecordedIn the past 12 months has the [employer], gas, oil, or water [employer] threatened to shut off services in your [...] were you homeless or living in a alf (including now)? No04/08/2024Hunger Vital SignAnswerDate RecordedWithin the past 12 months, you worried that your food would run out before you got the money to buymore.Never true04/08/2024an Out of Food in the Last YearNot on file04/08/2024Sex and Gender InformationValueDate RecordedSex Assigned at GgyflYhhr23/18/2024 5:12 PM ESTLegal IitHkil2610/18/2021 10:00 PM EDTGender MzcnvgbhRbyq25/18/2024 5:12 PM ESTSexual OrientationChoose not to /18/2024 5:12 PM ESTdocumented as of this encounter Miscellaneous Notes * Telephone Encounter - Herminia Johns MA - 03/29/2025 2:32 PM EST NEETU Reveles MA Please let him know his ECHO looked good. Aneurysm is stable. Thank you Spoke to patient, advised patient of his Echo results per Harriet Shen CNP. Patient verbalized understanding documented in this encounter Plan of Treatment DateTypeDepartmentCare Team (Latest Contact Info)Zkwmacqzxdt88/03/2026 9:00 AM ESTOffice Visit [place] [address] [place] [address] Iram Shen CNP [address] [place] [address] documented as of this encounter Visit Diagnoses Not on filedocumented in this encounter Care Teams Team MemberRelationshipSpecialtyStart DateEnd Date Radha Newton MD PCP - General12/11/21documented as of this encounter
--- OUTSIDE RECORDS SUMMARY | 2025-04-06 08:45 | XMS_ITS | Encounter Summary ---
Author Organization [facility] Address [address] [place] [address] Care Team Providers Care Coordinator Of Rehabilitation Services Name Role Phone Radha Newton MD Primary Care Provider [phone] Abdirahman Pina DO Unavailable [phone] Encounter Details DateTypeDepartmentCare Team (Latest Contact Info)Sgvcapnahjj65/05/2025Results Follow-Up [facility] Medicine [address] [place] [address] Andressa Alvares NP [address] [place] [address] TSH Social History Tobacco UseTypesPacks/DayYears UsedDateSmoking Tobacco: FormerCigarettes1.514 04/22/1969 - 1983PipeCigarsSmokeless Tobacco: Never Comments:Last smoked:>20 yea rs ago Alcohol UseStandard Drinks/WeekCommentsYes0 (1 standard drink = 0.6 oz pure alcohol)Caffeine intake: 1 cups per day of ufqhgrY0709 Health LiteracyAnswerDate RecordedHow often do you need [...] times a week12/17/2023How often do you attend synagogue or taoism services?Never12/17/2023o you belong to any clubs or organizations such as synagogue groups, unions, fraternal or athletic groups, or school groups?No12/17/2023How often do you attend meetings of the clubs or organizations you belong to?Never12/17/2023re you , , , , never , or living with a partner?Tnpfoay5012/17/2023 AUDIT-CAnswerDate RecordedQ1: How often do you have [...] heating?Not very hard12/17/2023HQ-2Answer Date RecordedPatient Health Questionnaire-2 Djzzc993Finbrigham city community hospital [place] of Occupational Health - Occupational Stress QuestionnaireAnswerDate [...] steady place to sleep or slept in [place] (including now)?No10/01/2022Housing Stability Vital SignAnswerDate RecordedIn the last 12 months, was there a time when you were not able to pay the mortgage or rent on time?No12/17/2023Number of Times Moved in the Last Year Not on file12/17/2023t any time in the past 12 months, were you homeless or living in a long term (including now)?No12/17/2023Sex and Gender InformationValue Date RecordedSex Assigned at BirthNot on fileLegal BurRyxw0407/04/2022 7:10 PM EDT Gender NzpyeeorIuob10/15/2023 7:10 PM EDTSexual OrientationNot on filedocumented as of this encounter Plan of Treatment Not on file documented as of this encounter Visit Diagnoses Not on filedocumented in this encounter Additional Health Concerns AssessmentNoted TimePHQ-9 Depression Total Score: 9:00 AM EST documented as of this encounter Care Teams Team MemberRelationshipSpecialtyStart DateEnd Radha Newton MD [address] [place] [address] PCP - GeneralFamily Medicine09/20/22 Abdirahman Pina DO [address] [facility] [address] [place], [place] [address] Referring PhysicianNeurology06/22/24documented as of this encounter
--- OUTSIDE RECORDS SUMMARY | 2025-04-06 08:45 | XMS_ITS | Encounter Summary ---
Author Organization [facility] Healthcare Address [address] [place] [address] Care Team Providers Care Director Transition Name Role Phone Radha Newton MD Primary Care Provider [phone] Abdirahman Pina DO Unavailable [phone] Encounter Details DateTypeDepartmentCare Team (Latest Contact Info)Agobdrryktp96/01/2025Patient Outreach [facility] [address] [place] [address] Harleen Martinez, CARLOS [address] [place], [place] [id number] Social History Tobacco UseTypesPacks/DayYears UsedDateSmoking Tobacco: FormerCigarettes1.514 04/22/1969 - 1983PipeCigarsSmokeless Tobacco: Never Comments:Last smoked:>20 yea rs ago Alcohol UseStandard Drinks/WeekCommentsYes0 (1 standard drink = 0.6 oz pure alcohol)Caffeine intake: 1 cups per day of zyzmohS7149 Health LiteracyAnswerDate RecordedHow often do you need [...] times a week12/17/2023How often do you attend moravian or yazdanism services?Never12/17/2023o you belong to any clubs or organizations such as moravian groups, unions, fraternal or athletic groups, or school groups?No12/17/2023How often do you attend meetings of the clubs or organizations you belong to?Never12/17/2023re you , , , , never , or living with a partner?Mreivdt6212/17/2023 AUDIT-CAnswerDate RecordedQ1: How often do you have [...] heating?Not very hard12/17/2023HQ-2Answer Date RecordedPatient Health Questionnaire-2 Yiyij366[facility] [place] of Occupational Health - Occupational Stress QuestionnaireAnswerDate [...] steady place to sleep or slept in state mental health facility (including now)?No10/01/2022Housing Stability Vital SignAnswerDate RecordedIn the [...] Date RecordedSex Assigned at BirthNot on fileLegal IzwFwgd3207/04/2022 7:10 PM EDT Gender LfmycxyrHtun87/15/2023 7:10 PM EDTSexual OrientationNot on filedocumented as of this encounter Progress Notes * Harleen Martinez RN - 03/22/2025 11:41 AM EST Images from the original note were not included. Reviewed ER report 03/15 [facility] dx chest pain and cardio note from 03/17. Called and spoke to pt. States he was evaluated, no new findings. Cardio increased his droxidopa dosage. Med list updated. Discussed fluid intake, p reports he uses a 32 oz cup and fills at least 2 times daily, thinks he averages 70-80oz of water daily. Pt main concern today is the ongoing pain he has to his bilat thigh area, usually at night, does not matter what position he is in, he tries to wrap in alexandru wraps to help the pain. Pt has not found much relief. Pt does not want to try therapy, concerns regarding making his other symptoms worse, he is able to ride a home stationary bike, usually every other day. Reviewed last neuro note which mentions his leg issues, further testing and appts were scheduled. Pt denies need for fu in this office at this time. He will call with questions or concerns. Flowsheet Row Patient Outreach from 03/22/2025 in [facility] with Harleen Martinez RN Hospital Information ED, Hospital or Correction Facility Discharge? ED Patient has been contacted within 2 days of being seen in the ED Yes Diagnosis chest and arm pain Discharge Date 03/15/25 Discharged To: Home Setting Discharge Hospital [facility] Engagement Admission Date 03/15/25 Medications Discharge medications reviewed and reconciled from hospital? Yes Is the patient having any side effects they believe may be caused by any medication additions or changes? No Does the patient have all medications ordered at discharge? Yes Nursing Interventions No intervention needed Is the patient taking all medications as directed (includes completed medication regime)? Yes Appointments Does the patient have a primary care provider? Yes Nursing Interventions Educated patient on importance of making appointment if symptoms persist/worsen Does the patient have any upcoming specialty appointments? -- [pt saw cardio 03/17] Self Management Does patient have home health? no Patient Teaching Nursing Interventions Reviewed instructions with patient What is the patient's perception of their health status since discharge? Returned to baseline/stable Is the patient/caregiver able to teach back the hierarchy of who to call/visit for symptoms/problems? PCP, Specialist, Home Health nurse, Urgent Care, ED, 911 Yes Wrap Up documented in this encounter Plan of Treatment Not on file documented as of this encounter Visit Diagnoses Diagnosis Essential hypertension- Primary Unspecified essential hypertension Acquired hypothyroidism Unspecified hypothyroidism documented in this encounter Additional Health Concerns AssessmentNoted TimePHQ-9 Depression Total Score: 9:00 AM EST documented as of this encounter Care Teams Team MemberRelationshipSpecialtyStart DateEnd Date Radha Newton MD [address] [place] [address] PCP - GeneralFamily Medicine09/20/22 Abdirahman Pina DO [address] [place] [address] Referring PhysicianNeurology06/22/24documented as of this encounter
--- OUTSIDE RECORDS SUMMARY | 2025-04-06 08:45 | XMS_ITS | Clinical Summary ---
Author Organization [facility] Address [address], [address] [place] [address] Care Team Providers Care Catcher Plug Name Role Phone Radha Torres MD Primary Care Pr ovider Allergies Active AllergyReactionsCriticalityNoted VgfxPevpxolzEmbakcvfor51/05/2022 Unable to speak Sfydtzvxxwz15/11/2022 Medications MedicationSigDispense QuantityRefillsLast FilledStart DateEnd DateStatus levothyroxine [...] at Discharge) Active Problems ProblemNoted DateDiagnosed DateMetabolic vqsbrtbe11/14/2022KI (acute kidney injury)01/01/2022KD (chronic kidney disease) stage 3, GFR 30-59 ml/min 01/01/2022Non-intractable vomiting with rwszsu8001/01/20222585Nghlufjo18/12/2022Lactic acid yedtkosg78/12/1202Eofibvloxqscu59/12/2022aroxysmal A-fib01/01/2022History of TIA (transient ischemic attack)01/01/2022History of peptic ulcer01/01/2022 Overview (01/01/2022): S/p egd at [facility] 08/2020 Apnea01/01/2022History of kidney wyrvjg1801/01/2022cute pancreatitis, unspecified complication status, unspecified pancreatitis type12/31/2021Gall stone jqmduusdmldk02/11/2022 Social History Tobacco UseTypesPacks/DayYears UsedDateSmoking Tobacco: NeverSmokeless Tobacco: Never Tobacco Cessation:Counseling Given: No Sex and Gender InformationValueDate RecordedSex Assigned at BirthNot on file Legal OtwZmfb5106/01/2012 5:16 PM ESTGender IdentityNot on fileSexual Orientation Not on file Last Filed Vital Signs Vital SignReadingTime TakenCommentsBlood Kimwflpf860/8009 9:00 AM EDT Orhxj011701/05/2022 9:00 AM SGAAkdzmuhtioy00.6 ??C (97.9 ??F)01/05/2022 7:45 AM EDTRespiratory Uldt509201/05/2022 2:08 PM EDTOxygen Bokkksmlmy21%01/05/2022 7:45 AM EDTInhaled Oxygen Concentration--Kcpsdv101.7 kg (255 lb)01/03/2022 6:00 AM EXKIwtfgk486.1 cm (6' 6 )12/31/2021 11:43 PM EDTBody Mass Index29.4709 11:43 PM EDT Plan of Treatment Health MaintenanceDue DateLast DoneCommentsDepression Wxrwmr7105/21/1965Hepatitis C xkmqqk2905/21/19719238Urrrbqknczz44/30/1999Colorectal Cancer Bcuxds6005/21/1998 FIT/FOBT: Average risk1998Fecal-DNA (Cologuard): Average risk1998 Sigmoidoscopy/CT ilqvqvftkhvm50/30/1999Pneumococcal 50+ years Vaccine (1 of 1 - PCV)2003Shingles vaccine (1 of 2)2003A1C test (Diabetic or Prediabetic)GFR test (Diabetes, CKD 3-4, OR last GFR 15-59) /, 01/04/2022, 01/03/2022, Additional history exists DTaP/Tdap/Td vaccine (2 - Td or Tdap)/nnual Wellness Visit (Medicare)03/18/2023Flu vaccine (#1)/11/2015COVID-19 Vaccine (3 - season)/, 06/17/20205727Evkxqu18 Respiratory Syncytial Virus (RSV) or age 60 yrs+ (1 - 1-dose 75+ series)2028Diabetes woxzymXakcnjdafcew72/12/2022Hepatitis A vaccineAged OutNo longer eligible based on [...] topic Procedures Procedure NamePriorityDate/TimeAssociated DiagnosisCommentsBASIC METABOLIC PANEL Hrfcusc6601/05/2022 5:01 AM EDT HEMOGLOBIN M5FZUZO0901/01/2022 5:46 AM EDT LIPID AYXZUFrnjuir32/12/2022 3:26 AM EDT from Last 3 Months or Most Recently Relevant to Health Maintenance Results * (ABNORMAL) Basic Metabolic Panel (01/05/2022 5:01 AM EDT)ComponentValueRef RangeTest MethodAnalysis TimePerformed AtPathologist EziaozbbcWznllwc2930 - 99 mg/dL01/05/2022 5:01 AM EDTMERCY KSNHLEHYLZVWBZF26(H)8 - 23 mg/dL01/05/2022 5:01 AM EDTMERCY LABORATORIESCreatinine2.50(H)0.70 - 1.20 mg/dL01/05/2022 5:01 AM EDTMERCY LABORATORIESCalcium6.4(L)8.6 - 10.4 mg/dL01/05/2022 5:01 AM EDT MERCY GFDTDUXILLIWDlebvp351(H)135 - 144 mmol/L01/05/2022 5:01 AM EDTMERCY LABORATORIESPotassium4.63.7 - 5.3 mmol/L01/05/2022 5:01 AM EDTMERCY XSZZKOAJYZTEJzgdlgpm172(H)98 - 107 mmol/L01/05/2022 5:01 AM EDTMERCY WCCRWZJSJLRRTD28667 - 31 mmol/L01/05/2022 5:01 AM EDTMERCY LABORATORIESAnion Tvz122 - 17 mmol/L01/05/2022 5:01 AM EDTMERCY LABORATORIESGFR Non- Exroujxj78(L)>60 mL/min01/05/2022 5:01 AM EDTMERCY LABORATORIESGFR Oksumjym84(L)>60 mL/min01/05/2022 5:01 AM EDTMERCY LABORATORIESGFR Comment 01/05/2022 5:01 AM EDTMERCY LABORATORIESComment: Average GFR for 60-69 years old: 85 mL/min/1.73sq m Chronic Kidney Disease: <60 mL/min/1.73sq m Kidney failure: <15 mL/min/1.73sq m ? eGFR calculated using average adult body mass. Additional eGFR calculator available at: ? http://www.[employer].Roposo/multiple_crcl_2012.htm ? Specimen (Source)Anatomical Location / LateralityCollection Method / Volume Collection TimeReceived TimeBLOOD SPECIMEN / Eixdube8201/05/2022 5:01 AM EDT 01/05/2022 6:04 AM EDT Narrative Authorizing ProviderResult TypeResult StatusSgrant Walker MDCHEMISTRY ORDERABLESFinal ResultPerforming OrganizationAddressty/State/[place] [address], [facility] [phone] * Hemoglobin A1C (01/01/2022 5:46 AM EDT)ComponentValueRef RangeTest Method Analysis TimePerformed AtPathologist SignatureHemoglobin A1C5.74.0 - 6.0 % 01/01/2022 5:46 AM EDTMERCY LABORATORIESEstimated Avg Mzswcuv297yf/dL 01/01/2022 5:46 AM EDTMERCY LABORATORIESComment: The ADA and AACC recommend providing the estimated average glucose result to permit better patient understanding of their HBA1c result. Specimen (Source)Anatomical Location / LateralityCollection Method / Volume Collection TimeReceived Time01/01/2022 5:46 AM EDT01/01/2022 5:48 AM EDT Narrative Authorizing ProviderResult TypeResult StatusJohn Margaritaarcadiobebolori MDCHEMISTRY ORDERABLESFinal ResultPerforming OrganizationAddressCity/State/[place] [address], [facility] [phone] * Lipid Panel (01/01/2022 3:26 AM EDT)ComponentValueRef RangeTest MethodAnalysis TimePerformed AtPathologist QqpdvhedkIgapnapfvoo959<200 mg/dL01/01/2022 3:26 AM EDTMERCY LABORATORIESComment: Cholesterol Guidelines: <200 Desirable 200-240 ??Borderline >240 Undesirable HDL46>40 mg/dL01/01/2022 3:26 AM EDTMERCY LABORATORIESComment: HDL Guidelines: <40 Undesirable 40-59 ?Borderline >59 Desirable LDL Vwqttcflbzv562 - 130 mg/dL01/01/2022 3:26 AM EDTMERCY LABORATORIESComment: [...] 3:29 AM EDT Narrative Authorizing ProviderResult TypeResult StatusVerannea Richelle Walden MDCHEMISTRY ORDERABLESFinal ResultPerforming OrganizationAddressCity/State/ZIP CodePhone Number [facility] [address] [phone] from Last 3 Months or Most Recently Relevant to Health Maintenance Insurance [address] [id number] Advance Directives * Full Code (Latest Code Status on File) Date ActivatedDate InactivatedComments12/31/2021 11:43 PM01/05/2022 6:43 PM * Full Code Date ActivatedDate InactivatedComments12/31/2021 11:43 PM12/31/2021 11:43 PM Care Teams Team MemberRelationshipSpecialtyStart DateEnd Date Radha Torres MD [address] [place] [address] PCP - GeneralFaorly Medicine10/01/17
--- OUTSIDE RECORDS SUMMARY | 2025-04-06 08:45 | XMS_ITS | Encounter Summary ---
Author Organization [facility] Address [address] [place] [address] Care Team Providers Care Property Underwriter Name Role Phone Radha Newton MD Primary Care Provider [phone] Encounter Details DateTypeDepartmentCare Team (Latest Contact Info)Ufdawoklwsd71/15/2025Telephone [facility] [address] [place] [address] Andressa Cruz MA Social History Tobacco UseTypesPacks/DayYears UsedDateSmoking Tobacco: JvmrvjKlidmvhrnm710 1967 - 1983CigarsSmokeless Tobacco: FormerChewQuit: 1983 Alcohol UseStandard Drinks/WeekCommentsYes1 (1 standard drink = 0.6 oz pure alcohol)[facility]ionalM[facility] UtilitiesAnswerDate RecordedIn the past 12 months has the [employer], gas, oil, or water [employer] threatened to shut off services in your home?No04/08/2024Overall Financial Resource Strain (CARDIA)AnswerDate Recorded How hard is it for you to pay for the very basics like food, housing, medical care, and heating?Not hard at all04/08/2024HQ-2AnswerDate RecordedPatient Health Questionnaire-2 Tpeuj25706/02/2024Humiliation, Afraid, Rape, and Kick questionnaireAnswerDate RecordedWithin the [...] or living in a nursing home (including now)? No04/08/2024Hunger Vital SignAnswerDate RecordedWithin the past 12 months, you worried that your food would run out before you got the money to buymore.Never true04/08/2024an Out of Food in the Last YearNot on file04/08/2024Sex and Gender InformationValueDate RecordedSex Assigned at XryipVofu84/18/2024 5:12 PM ESTLegal DqmDdwc4710/18/2021 10:00 PM EDTGender JwhiqpccLgdp94/18/2024 5:12 PM EST Sexual OrientationChoose not to tbetsywl60/18/2024 5:12 PM ESTdocumented as of this encounter Miscellaneous Notes * Telephone Encounter - Andressa Cruz MA - 04/05/2025 9:45 AM EST Per Harriet Shen : Hi girls! Jamil reached out to me, increase in his labile BPs. I messaged him to increase his droxidopa to 300mg TID. I'm not working today and running errands this AM. Can either one of you order labs for him under me and ask him where he wants them to be done and we can fax them? CBC, CMP, mag, cortisol ( should be done by 10am), tsh with reflex. Thanks!! Spoke with patient and he will have labs drawn at [facility]. Orders faxed. He will increase Northera to 300mg TID. I also advised patient that the order for the compression stockings was faxed to [facility] in [place], since the [employer] told us via fax they do not provide that product. Patient verbalized understanding. documented in this encounter Plan of Treatment DateTypeDepartmentCare Team (Latest Contact Info)Pkockbkskvy55/03/2026 9:00 AM ESTOffice Visit [facility] [address] [place] [address] Iram Shen, CREDIT SUPPORT SPECIALIST [address] [place] [address] NameTypePriorityAssociated DiagnosesOrder ScheduleCBC and differentialLabRoutine Neurogenic orthostatic hypotension (CMS/HCC) Expected: 04/05/2025 (Approximate), Expires: 04/05/2026omprehensive metabolic panelLabRoutine Neurogenic orthostatic hypotension (CMS/HCC) Expected: 04/05/2025 (Approximate), Expires: 04/05/2026MagnesiumLabRoutine Neurogenic orthostatic hypotension (CMS/HCC) Expected: 04/05/2025 (Approximate), Expires: 04/05/2026ortisolLabRoutine Neurogenic orthostatic hypotension (CMS/HCC) Expected: 04/05/2025 (Approximate), Expires: 04/05/2026TSH3 Reflex to FT4Lab Routine Neurogenic orthostatic hypotension (CMS/HCC) Heart palpitations Expected: 04/05/2025 (Approximate), Expires: 04/05/2026documented as of this encounter Visit Diagnoses Diagnosis Neurocardiogenic pre-syncope- Primary Neurogenic orthostatic hypotension (CMS/HCC) Heart palpitations Palpitations documented in this encounter Care Teams Team MemberRelationshipSpecialtyStart DateEnd Date Radha Newton MD PCP - General12/11/21documented as of this encounter
--- OUTSIDE RECORDS SUMMARY | 2025-04-06 08:45 | XMS_ITS | Encounter Summary ---
Author Organization [facility] Address [address] [place] [address] Care Team Providers Care Laminated Plastics Assembler And Gluer Name Role Phone Anastasia Burris MD Primary Care Provider [phone] Silvana Jasmeetnadine DO Unavailable [phone] Encounter Details DateTypeDepartmentCare Team (Latest Contact Info)Fxkafwxwhhb14/04/2025Clinisync Result Encounter [facility] External Department Unsolicited Provider, Generic External Data Social History Tobacco UseTypesPacks/DayYears UsedDateSmoking Tobacco: FormerCigarettes1.514 04/22/1969 - 1983PipeCigarsSmokeless Tobacco: Never Comments:Last smoked:>20 yea rs ago Alcohol UseStandard Drinks/WeekCommentsYes0 (1 standard drink = 0.6 oz pure alcohol)Caffeine intake: 1 cups per day of jxiazwS3031 Health LiteracyAnswerDate RecordedHow often do you need [...] times a week12/17/2023How often do you attend jain or mormonism services?Never12/17/2023o you belong to any clubs or organizations such as jain groups, unions, fraternal or athletic groups, or school groups?No12/17/2023How often do you attend meetings of the clubs or organizations you belong to?Never12/17/2023re you , , , , never , or living with a partner?Tprgyja3912/17/2023 AUDIT-CAnswerDate RecordedQ1: How often do you have [...] heating?Not very hard12/17/2023HQ-2Answer Date RecordedPatient Health Questionnaire-2 Jexaq911Finogden [facility] [place] of Occupational Health - Occupational Stress QuestionnaireAnswerDate [...] steady place to sleep or slept in winter parkelter (including now)?No10/01/2022Housing Stability Vital SignAnswerDate RecordedIn the last 12 months, was there a time when you were not able to pay the mortgage or rent on time?No12/17/2023Number of Times Moved in the Last Year Not on file12/17/2023t any time in the past 12 months, were you homeless or living in a jail (including now)?No12/17/2023Sex and Gender InformationValue Date RecordedSex Assigned at BirthNot on fileLegal XmfHupt8407/04/2022 7:10 PM EDT Gender NidxlczmNtjt94/15/2023 7:10 PM EDTSexual OrientationNot on filedocumented as of this encounter Plan of Treatment Not on file documented as of this encounter Procedures Procedure NamePriorityDate/TimeAssociated DiagnosisCommentsCA ECHO DOPPLER WWLBRRIW90/04/2025 9:01 PM EST documented in this encounter Results * CA ECHO DOPPLER COMPLETE (03/25/2025 9:01 PM EST)Anatomical RegionLaterality ModalityOtherSpecimen (Source)Anatomical Location / LateralityCollection Method / VolumeCollection TimeReceived Time03/25/2025 9:01 PM EST Narrative 03/25/2025 9:02 PM EST [facility] ?[address] ? [place] [address] ? Cardiology Report ? Signed ? Patient: EVERARDO ARNOLD M Jr. ?MR#: [id number] ?? : 1955 ?Acct:[id number] ?? Age/Sex: 69 / M ?ADM Date: 12/04/25 ?? Loc: [place] ? Attending Dr: YANDEL BURKS APRN ? Ordering Physician: YANDEL BURKS APRN ?? Date of Service: 03/25/25 ?? Procedure(s): CA echo doppler complete ?? Accession Number(s): [id number] ? cc: ANASTASIA BURRIS ; YANDEL BURKS APRN ? Patient Name: ? EVERARDO ARNOLD ? MR#: [id number] ? : 1955 ? Exam Date: 03/25/2025 ?? Ordering Doctor: YANDEL BURKS CNP ? ECHOCARDIOGRAM REPORT ? PROCEDURE: ? CA [...] ?? Right Atrium ? Dictated by: Guru Santana M.D. on 03/25/2025 at 20:55 ? Approved by: Guru Santana M.D. on 03/25/2025 at 21:00 ? Dictated By: ?GURU SANTANA ? Signed By: ?03/25/252101 ? DD/ 00 ? TD/TT: ? Charge Master Coordinator: Procedure Note Radiology, Radiologist, MD - 03/25/[address] [address] Cardiology Report Signed Patient: EVERARDO ARNOLD Jr.MR#: [id number] : 1955cct:[id number] Age/Sex: 69 / MADM Date: 03/25/25 Loc: [place] Attending Dr: YANDEL BURKS APRN Ordering Physician: YANDEL BURKS APRN Date of Service: 03/25/25 Procedure(s): CA echo doppler complete Accession Number(s): [id number] cc: ANASTASIA BURRIS ; YANDEL BURKS APRN Patient Name: EVERARDO ARNOLD MR#: [id number] : 1955 Exam Date: 03/25/2025 Ordering Doctor: [...] 3.16 mm[Hg] Right Atrium Dictated by: Guru Santana M.D. on 03/25/2025 at 20:55 Approved by: Guru Santana M.D. on 03/25/2025 at 21:00 Dictated By: GURU SANTANA Signed By:03/25/252101 DD/ 00 TD/TT: Charge Master Coordinator: Authorizing ProviderResult TypeResult StatusGeneric External Data Provider [facility] IMAGINGEdited Result - Final documented in this encounter Visit Diagnoses Not on filedocumented in this encounter Additional Health Concerns AssessmentNoted TimePHQ-9 Depression Total Score: 9:00 AM EST documented as of this encounter Care Teams Team MemberRelationshipSpecialtyStart DateEnd Date Anastasia Burris MD [address] [place] [address] PCP - GeneralFamily Medicine09/20/22 Abdirahman Pina DO [address] [place] [address] Referring PhysicianNeurology06/22/24documented as of this encounter
--- OUTSIDE RECORDS SUMMARY | 2025-04-06 08:45 | XMS_ITS | Encounter Summary ---
Author Organization [facility] Address [address] [place] [address] Care Team Providers Care Continuity Manager Name Role Phone Radha Newton MD Primary Care Provider [phone] Encounter Details DateTypeDepartmentCare Team (Latest Contact Info)Slvaftpybzb72/08/2025Telephone [facility] [address] [place] [address] Herminia Johns MA Social History Tobacco UseTypesPacks/DayYears UsedDateSmoking Tobacco: BrpmsuSnocuzadhs983 1967 - 1983CigarsSmokeless Tobacco: FormerChewQuit: 1983 Alcohol UseStandard Drinks/WeekCommentsYes1 (1 standard drink = 0.6 oz pure alcohol)occasionalAHC UtilitiesAnswerDate RecordedIn the past 12 months has the [employer], gas, oil, or water [employer] threatened to shut off services in your [...] file04/08/2024Sex and Gender InformationValueDate RecordedSex Assigned at SzaseJuuz42/18/2024 5:12 PM ESTLegal RwdRcuc9510/18/2021 10:00 PM EDTGender AkyzkicxTnec07/18/2024 5:12 PM ESTSexual OrientationChoose not to /18/2024 5:12 PM ESTdocumented as of this encounter Miscellaneous Notes * Telephone Encounter - Iram Shen CNP - 03/31/2025 4:33 PM EST Addressed. Spoke to pt, he will be coming to [place] tomorrow and Dr. Godwin and I will review his pacemaker tracings. Thank you * Telephone Encounter - Herminia Johns MA - 03/29/2025 2:33 PM EST Spoke to patient, patient states since he started on Droxidopa he has been in and out of A-fib several time along with having episodes of dizziness. Please advise documented in this encounter Plan of Treatment DateTypeDepartmentCare Team (Latest Contact Info)Gbfctoyptez24/03/2026 9:00 AM ESTOffice Visit [facility] [address] [place] [address] Iram Shen CNP [address] [place] [address] documented as of this encounter Visit Diagnoses Not on filedocumented in this encounter Care Teams Team MemberRelationshipSpecialtyStart DateEnd Date Radha Newton MD PCP - General12/11/21documented as of this encounter
[2025-04-06 09:21] LABS: Hematocrit 44.6 % (42.0-54.0); Hemoglobin 14.4 g/dL (14.0-18.0); Immature Granulocytes Abs Auto 0.04 10^3/uL (0.00-0.03); Immature Granulocytes Pct Auto 0.6 % (0.0-0.5); Lymphocytes Absolute Auto 1.4 10^3/uL (1.2-3.8); Mean Corpuscular HGB Conc 32.3 g/dL (29.9-35.2); Mean Corpuscular Hemoglobin 27.5 pg (25.9-34.0); Mean Corpuscular Volume 85.3 fL (80.0-94.0); Platelet Count 212 10^3/uL (150-450); Red Blood Count 5.23 10^6/uL (4.70-6.10); White Blood Count 6.4 10^3/uL (4.0-11.0)
[2025-04-06 09:46] LABS: Alanine Aminotransferase 46 U/L (16-63); Albumin Globulin Ratio 1.1; Albumin Level 3.9 g/dL (3.4-5.0); Alkaline Phosphatase 71 U/L (46-116); Anion Gap 15.2; Aspartate Amino Transferase 24 U/L (15-37); Blood Urea Nitrogen 24.0 mg/dL (7.0-18.0); Calcium 8.1 mg/dL (8.5-10.1); Carbon Dioxide 27.0 mmol/L (21.0-32.0); Chloride 104 mmol/L (98-107); Estimated GFR (African America 56 (>=60 mL/min/1.73m^2); Estimated GFR (Non-African Ame 46 (>=60 mL/min/1.73m^2); Globulin 3.7 g/dL; Glucose 120 mg/dL (74-106); Magnesium 2.3 mg/dL (1.8-2.4); Potassium 4.2 mmol/L (3.5-5.1); Sodium 142 mmol/L (136-145); TSH W/ REFLEX FT4 2.524 uIU/mL (0.358-3.740); Total Protein 7.6 g/dL (6.4-8.2)
== END 2025-04-06 08:38 | disposition home or self-care (01) ==
LOC: LAB 08:39
PROVIDERS: PCP Family Medicine; Visit Provider Nurse Practitioner Family
DX: G90.3 Multi-system degeneration of the autonomic nervous system (principal); R00.2 Palpitations
CPT/HCPCS: 36415; 80053; 82533; 83735; 84443; 85025